=== PATIENT | female | born 1935 | race Caucasian/White ===

== ENCOUNTER 2022-07-20 06:44 | Outpatient (OUT) | payer MEDICARE, BC, SELFPAY ==
--- NOTE | 2022-07-20 | PCN_ITS ---
CARDIAC STRESS TEST Requesting Physician:? Procedure Date:? 07/20/2022 This was a Lexiscan stress test with myocardial perfusion images, performed at the [facility] on 07/20/2022. The patient was attached to electrographic monitoring.? Informed consent was obtained.? An intravenous line was secured.? Baseline vital signs and ECG were obtained.? Lexiscan 0.4 mg intravenously were infused, followed by administration of Cardiolite.? The patient then went on to obtain myocardial images.? Resting heart rate was 69 BPM.? Maximum heart rate was 95 BPM.? Resting blood pressure was 180/92.? Maximum blood pressure was 198/92.? Resting ECG showed evidence of normal sinus rhythm with frequent premature atrial complexes and occasional premature ventricular complexes.? There was evidence of incomplete right bundle branch block.? Following infusion of Lexiscan, there was evidence of sinus rhythm with occasional premature ventricular and atrial complexes.? There was no evidence of ischemic ST changes seen. IMPRESSION:? 1.? Negative Lexiscan stress test for evidence of ischemic ECG changes. 2.? Resting hypertension. 3.? Myocardial perfusion images will be reported separately. MTDD
--- NOTE | 2022-07-20 07:05 | NM_ITS ---
Patient: SAGE HSU Exam Date: 07/20/2022 : 1935 Gender:F Ordering : DR MIESHA GAVIN M.D. Admission #: [id number] Family : DR Shirlene Vergara M.D. Order #: [id number] CLICK HERE TO VIEW EXAM RADIOLOGY REPORT PROCEDURE: NM CANDIDA PERF SPECT REST STR COMPARISON: None. INDICATIONS: Shortness of breath TECHNIQUE: Exam Description: Stress/Rest one day protocol gated SPECT Rest Imagin.3 mCi Tc-99m Cardiolite IV on 07/20/2022 Stress Imaging 30.4 mCi Tc-99m Cardiolite IV on 07/20/2022 Exercise Protocol: 0.4 mg Lexiscan given IV Heart Rate (bpm): Rest: 69 Max: 95 PMHR: 70 Blood Pressure: Rest: 180/92 Max: 198/92 Symptoms: Rest and peak stress ECG findings were pending and the exercise portion of the study was pending per attending physician Dr. THOMPSON . For more details please see separate cardiac stress test report. FINDINGS: QUALITY OF STUDY: Excellent. PERFUSION DEFECT: None. LOCATION: N/A SIZE: N/A. SEVERITY: N/A. TYPE: N/A. WALL MOTION: Normal. LV SIZE: Normal. 80 mL. TID / TCD: None; 0.9 LVEF: Normal. Calculated EF 71%. SUMMARY: Myocardial perfusion imaging study is NORMAL. CONCLUSION: 1. Normal nuclear medicine myocardial perfusion scan. Dictated by: Lul Rodriguez M.D. on 07/21/2022 at 11:52 Approved by: Lul Rodriguez M.D. on 07/21/2022 at 11:53
[2022-07-20 07:17] LABS: Alanine Aminotransferase 20 U/L (14-59); Albumin Level 3.3 g/dL (3.4-5.0); Alkaline Phosphatase 23 U/L (46-116); Aspartate Amino Transferase 16 U/L (15-37); Bilirubin Direct 0.2 mg/dL (0.0-0.2); Bilirubin Total 0.6 mg/dL (0.2-1.0); Chol HDL Ratio 3.4; Cholesterol 203 mg/dL (<=200); Globulin 3.4 g/dL; HDL Cholesterol 60 mg/dL (40-60); Total Protein 6.7 g/dL (6.4-8.2); Triglycerides 122 mg/dL (<=150); VLDL CHOLESTEROL 24.4 mg/dL
[2022-07-20] MEDS: REGADENOSON 0.4 MG/5 ML SYRINGE IV (09:17)
== END 2022-07-20 06:45 ==
LOC: NM 06:45
PROVIDERS: PCP Family Medicine; Visit Provider Internal Medicine Interventional Cardiology
DX: R06.02 Shortness of breath (principal); E78.5 Hyperlipidemia, unspecified
CPT/HCPCS: 36415; 78452; 80061; 80076; 93017; A9500; J2785

== ENCOUNTER 2022-08-06 08:55 | Outpatient (OUT) | payer MEDICARE, BC, SELFPAY | END 2022-08-06 08:56 | disposition home or self-care (01) | LOC: WC 08:55 | PROVIDERS: PCP Family Medicine; Visit Provider Physician Assistant | DX: I87.311 Chronic venous hypertension (idiopathic) with ulcer of right lower extremity (principal); L97.811 Non-pressure chronic ulcer of other part of right lower leg limited to breakdown of skin; L60.0 Ingrowing nail; R60.0 Localized edema; I70.90 Unspecified atherosclerosis; I10 Essential (primary) hypertension; S81.819A Laceration without foreign body, unspecified lower leg, initial encounter; M81.0 Age-related osteoporosis without current pathological fracture; L98.9 Disorder of the skin and subcutaneous tissue, unspecified | CPT/HCPCS: A6213; G0463 ==

== ENCOUNTER 2022-08-31 10:53 | Outpatient (OUT) | payer MEDICARE, BC, SELFPAY | END 2022-08-31 10:54 | disposition home or self-care (01) | LOC: WC 10:53 | PROVIDERS: PCP Family Medicine; Visit Provider Physician Assistant | DX: I87.311 Chronic venous hypertension (idiopathic) with ulcer of right lower extremity (principal); L97.811 Non-pressure chronic ulcer of other part of right lower leg limited to breakdown of skin | CPT/HCPCS: G0463 ==

== ENCOUNTER 2022-09-22 13:17 | Outpatient (OUT) | payer MEDICARE, BC, SELFPAY | END 2022-09-22 13:18 | disposition home or self-care (01) | PROVIDERS: PCP Family Medicine; Visit Provider Family Medicine | DX: N30.00 Acute cystitis without hematuria (principal) | CPT/HCPCS: 87086; 87150; 87186 ==

== ENCOUNTER 2022-09-27 17:12 | Emergency (ER) | payer MEDICARE, BC, SELFPAY ==
[2022-09-27 17:18] VITALS: BP 200/104; PULSE 79; RESP 16; TEMP 38.1; O2SAT 94; BMI 20.5
--- NOTE | 2022-09-27 17:29 | ECG_ITS ---
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
--- NOTE | 2022-09-27 17:29 | XR_ITS ---
The [address] [address] Patient Name: SAGE HSU MRN: [id number] date: 1935 Sex: F Assigned Patient Location: ER Current Patient Location: ED.MAIN Accession/Order Number: [id number] Exam Date: 09/27/2022 17:59 Report Date: 09/27/2022 18:52 At the request of: ALVARO JEREZ Procedure: XR chest 1V EXAMINATION: XR chest 1V HISTORY: Cough COMPARISON: Portable chest 11/01/2021 TECHNIQUE: PA and lateral chest x-rays FINDINGS: The lung parenchyma is free of consolidation or infiltrate. No pneumothorax or pleural effusion. Patient is status post median sternotomy and CABG. The cardiac, mediastinal and hilar contours are normal. The visualized osseous structures exhibit no gross abnormality. XR/XR chest 1V IMPRESSION: No acute cardiopulmonary abnormality. Electronically authenticated by: GIANA HOLLY Date: 09/27/2022 18:52
--- NOTE | 2022-09-27 17:48 | ED_ITS ---
HPI - Altered Mental Status General Chief Complaint: Altered Mental Status Stated Complaint: UTI Complaint Time Seen by Provider: 09/27/22 17:23 Source: patient and family Mode of arrival: Wheelchair Limitations: altered mental status History of Present Illness HPI narrative: Daughter gave the history Patient is an elderly female who lives in the [facility] in Independent Living. She frequently gets UTIs. She had a UA done at her PCPs about 10 days ago and was started on Bactrim. She took it for 5 days and seemed to get better then she became confused - her typical symptoms when she gets UTI - and so her Urologist ordered urine culture. It came back showing E faecalis and 2 days ago the patient was started on Macrobid. Today the patient spiked a fever and remained confused, so the patient was brought to the ED for evaluation. Related Data Home Medications Medication Instructions Recorded Confirmed clopidogrel 75 mg tablet (Plavix) 75 mg PO DAILY 09/27/22 09/27/22 estradiol 0.25 mg/0.25 gram (0.1 1 packet transdermal DAILY 09/27/22 09/27/22 %) transdermal gel packet metoprolol succinate 50 mg 50 mg PO DAILY 09/27/22 09/27/22 tablet,extended release 24 hr nitrofurantoin macrocrystal 100 mg 100 mg PO BID 09/27/22 09/27/22 capsule (Macrodantin) pantoprazole 40 mg tablet,delayed 40 mg PO DAILY 09/27/22 09/27/22 release simvastatin 40 mg tablet 40 mg PO DAILY 09/27/22 09/27/22 spironolactone 25 mg tablet 25 mg PO DAILY 09/27/22 09/27/22 vedolizumab 300 mg intravenous 300 mg IV 09/27/22 solution (Entyvio) Previous Rx's Medication Instructions Recorded doxycycline hyclate 100 mg capsule 100 mg PO BID #14 caps 09/27/22 Allergies Allergy/AdvReac Type Severity Reaction Status Date / Time levofloxacin AdvReac Severe Drowsy Verified 09/27/22 17:28 Penicillins AdvReac Severe Verified 09/27/22 17:28 Antihistamines - Alkylamine AdvReac Intermediate Verified 09/27/22 17:28 phenergen Allergy Severe Agitated Uncoded 09/27/22 17:28 PFSH PFSH Social History Smoking status: Never smoker Exam Narrative Exam Narrative: Nurses notes and vital signs reviewed and patient is not hypoxic. Febrile = 100.6F General: Well-appearing and in no apparent distress. Skin: Warm, dry, no pallor noted. No rash. Head: Normocephalic, atraumatic. Neck: Supple, non-tender. No meningismus Eye: Pupils are equal, round and EOMI. No scleral icterus. Ears, Nose, Mouth, and Throat: Oral mucosa is moist Cardiovascular: Regular Rate and Rhythm without murmur, gallop or rub. Respiratory: No accessory muscle use or respiratory distress. Lungs are clear to auscultation, no wheezing, rales or rhonchi Back: No CVA tenderness Musculoskeletal: normal ROM, no calf or popliteal tenderness, no lower extremity edema/swelling GI: Abdomen is soft, non-distended. Normal bowel sounds. No tenderness to palpation. No rebound, guarding, or rigidity noted. Neurological: A&O x4. No cranial nerve dysfunction observed. No truncal ataxia. Moves all extremities. Sensation intact. Psychiatric: Cooperative and interactive. Normal mood and affect. Constitutional Vital Signs, click to edit/add: Last Vital Signs Temp 100.6 F H 09/27/22 17:18 Pulse 79 09/27/22 17:18 Resp 16 09/27/22 17:18 BP 200/104 H 09/27/22 17:18 Pulse Ox 94 L 09/27/22 17:18 O2 Del Method Room Air 09/27/22 17:18 Course Vital Signs Vital signs: Vital Signs Temperature 100.6 F H 09/27/22 17:18 Pulse Rate 79 09/27/22 17:18 Respiratory Rate 16 09/27/22 17:18 Blood Pressure 200/104 H 09/27/22 17:18 Pulse Oximetry 94 L 09/27/22 17:18 Oxygen Delivery Method Room Air 09/27/22 17:18 Temperature 100.6 F H 09/27/22 17:18 Pulse Rate 79 09/27/22 17:18 Respiratory Rate 16 09/27/22 17:18 Blood Pressure 200/104 H 09/27/22 17:18 Pulse Oximetry 94 L 09/27/22 17:18 Oxygen Delivery Method Room Air 09/27/22 17:18 MDM - Altered Mental Status MDM Narrative Medical decision making narrative: Patient was placed on quality assurance monitor and EKG obtained. Blood drawn and sent for evaluation, including lactate and blood cultures per sepsis protocol. chest x- ray obtained. Review of the micro report from the patient's urine shows susceptibility to tetracycline with JODY <1 so I ordered IV doxycycline 100mg to be given IV. She is allergic to Levaquin and had been taking Macrobid without improvement. Patient has decreased Na & Cl and increased BUN and Cr. She was given 1L NS IVF. She is only 57.6 kg. She was able to be discharged home. She got a prescription for doxycycline tabs that the daughter will lease picker in the morning - she already got her IV dose for tonight. She will finish the macrobid, which she is senior care through. The doxy is a 7 day prescription. I encouraged her to increase her food and fluid intake. She can see her PCP or her urologist for follow up. ED return if she worsens. Medical Records Attestation: I reviewed the patient's medical records. Medical records narrative: Run Date: 09/27/22 [facility] Page: 1 Run Date: [address] [place], [place] [id number] Clinical Laboratory Report Name: SAGE HSU Acct: [id number] Loc: LAB Age/Sex: 86/F : 1935 Status: DEP OUT Reg Dr: Shirlene Vergara M.D. Specimen: [id number] Collected: 09/22/22 Received: 09/22/22 Source: Urine CC Sp Descrip: Sub Dr: Shirlene Vergara M.D. Other Dr: MELINA BOYD Procedure Result Site Urine Culture Final ML Organism 1 Enterococcus faecalis [place] Count 10,000 - 20,000 CFU/ml E faecalis JODY RX --------- --- * Ampicillin <=2 S * Beta Lactamase NEG * Ciprofloxacin <=0.5 S * Gentamycin Synergy Screen S * Levofloxacin 0.5 S * Linezolid 1 S * Nitrofurantoin <=16 S * Penicillin-G 1 S * Quinupristin/Dalfopristin 4 R * Streptomycin Synergy Screen S * Tetracycline <=1 S * Vancomycin 1 [place] [address] CLIA# [id number] Colored Liquid Plastic Applier: Dr. Anthony Bonilla Patient: SAGE HSU Age/Sex: 86/F Acct [id number] Lab Data Attestation: I reviewed the patient's lab results. Labs: Lab Results 09/27/22 09/27/22 Range/Units 17:40 17:50 WBC 8.0 (4.0-11.0) 10^3/uL RBC 3.66 L (4.20-5.40) 10^6/uL Hgb 11.4 L (12.0-16.0) g/dL Hct 34.7 L (36.0-48.0) % MCV 94.8 (81.0-99.0) fL MCH 31.1 (26.7-34.0) pg MCHC 32.9 (29.9-35.2) g/dL RDW 15.0 (11.0-15.0) % Plt Count 291 (150-450) 10^3/uL MPV 9.7 (9.5-13.5) fL Neut % (Auto) 76.6 H (43.0-75.0) % Lymph % (Auto) 7.5 L (20.5-60.0) % [place] % (Auto) 15.0 H (1.7-12.0) % Eos % (Auto) 0.1 L (0.9-7.0) % Baso % (Auto) 0.5 (0.2-2.0) % Neut # (Auto) 6.1 (1.4-6.5) 10^3/uL Lymph # (Auto) 0.6 L (1.2-3.8) 10^3/uL [place] # (Auto) 1.2 H (0.3-0.8) 10^3/uL Eos # (Auto) 0.0 (0.0-0.7) 10^3/uL Baso # (Auto) 0.0 (0.0-0.1) 10^3/uL Abs Immat Gran (auto) 0.02 (0.00-0.03) 10^3/uL Imm/Tot Granulo (auto) 0.3 (0.0-0.5) % Sodium 127 L (136-145) mmol/L Potassium 3.9 (3.5-5.1) mmol/L Chloride 95 L (98-107) mmol/L Carbon Dioxide 26.0 (21.0-32.0) mmol/L Anion Gap 9.9 BUN 24.0 H (7.0-18.0) mg/dL Creatinine 1.25 H (0.55-1.02) mg/dL Est GFR ( Amer) 49 L (>=60) Est GFR (Non-Af Amer) 41 L (>=60) BUN/Creatinine Ratio 19.2 Glucose 117 H (74-106) mg/dL Lactate 1.3 (0.4-2.0) mmol/L Calcium 8.8 (8.5-10.1) mg/dL Magnesium 1.7 L (1.8-2.4) mg/dL Total Bilirubin 1.0 (0.2-1.0) mg/dL AST 19 (15-37) U/L ALT 26 (14-59) U/L Alkaline Phosphatase 27 L (46-116) U/L Total Protein 6.9 (6.4-8.2) g/dL Albumin 3.5 (3.4-5.0) g/dL Globulin 3.4 g/dL Albumin/Globulin Ratio 1.0 Urine Color Yellow (YELLOW) Urine Clarity Clear (CLEAR) Urine pH 5.5 (5.0-9.0) Ur Specific [place] 1.020 (1.005-1.025) Urine Protein Negative (NEG/TRACE) mg/dL Urine Glucose (UA) Negative (NEGATIVE) mg/dL Urine Ketones Negative (NEGATIVE) mg/dL Urine Occult Blood Negative (NEGATIVE) Urine Nitrite Negative (NEGATIVE) Urine Bilirubin Negative (NEGATIVE) Urine Urobilinogen 0.2 (0.2-1.0) EU/dL Ur Leukocyte Esterase Negative (NEGATIVE) Imaging Data Chest x-ray: My impression: NAD ECG Data Attestation: I personally reviewed and interpreted this ECG as follows: Interpretation: EKG interpretation: Emergency Department physician interpretation. Normal sinus rhythm at 72bpm. RBBB, LVH, LAD. Inverteed T waves V1-V2 and aVL. no ST segment elevation or depression. Discharge Plan Discharge Chief Complaint: Altered Mental Status Clinical Impression: Altered mental status, Urinary tract infection, Acute hyponatremia Patient Disposition: Home, Self-Care Time of Disposition Decision: 18:45 Prescriptions / Home Meds: New doxycycline hyclate 100 mg capsule 100 mg PO BID Qty: 14 0RF No Action nitrofurantoin macrocrystal [Macrodantin] 100 mg capsule 100 mg PO BID Rx Instructions: must administer with a meal/food metoprolol succinate 50 mg tablet extended release 24 hr 50 mg PO DAILY simvastatin 40 mg tablet 40 mg PO DAILY spironolactone 25 mg tablet 25 mg PO DAILY pantoprazole 40 mg tablet,delayed release (DR/EC) 40 mg PO DAILY clopidogrel [Plavix] 75 mg tablet 75 mg PO DAILY estradiol 0.25 mg/0.25 gram (0.1 %) gel in packet 1 packet transdermal DAILY Entyvio 300 mg recon soln 300 mg IV Instructions: Hyponatremia (ED), Altered Mental Status (ED), Urinary Tract Infection in Older Adults (ED) Stand Alone Forms: Portal Instructions Referrals: Shirlene Vergara MD [Primary Care Provider] - 1 week
--- NOTE | 2022-09-27 17:48 | PC.NURSE ---
pt is AxOx4 at this time but is acting more weak and lethargic, per daughter. has been placed on 2 rounds of ATBs in last 10 days but sx are not improving.
[2022-09-27 17:58] LABS: Basophils Percent Auto 0.5 % (0.2-2.0); Eosinophils Percent Auto 0.1 % (0.9-7.0); Hematocrit 34.7 % (36.0-48.0); Hemoglobin 11.4 g/dL (12.0-16.0); Immature Granulocytes Abs Auto 0.02 10^3/uL (0.00-0.03); Immature Granulocytes Pct Auto 0.3 % (0.0-0.5); Lymphocytes Absolute Auto 0.6 10^3/uL (1.2-3.8); Lymphocytes Percent Auto 7.5 % (20.5-60.0); Mean Corpuscular HGB Conc 32.9 g/dL (29.9-35.2); Mean Corpuscular Hemoglobin 31.1 pg (26.7-34.0); Mean Corpuscular Volume 94.8 fL (81.0-99.0); Mean Platelet Volume 9.7 fL (9.5-13.5); Monocytes Absolute Auto 1.2 10^3/uL (0.3-0.8); Neutrophils Absolute Auto 6.1 10^3/uL (1.4-6.5); Neutrophils Percent Auto 76.6 % (43.0-75.0); Platelet Count 291 10^3/uL (150-450); Red Blood Count 3.66 10^6/uL (4.20-5.40)
[2022-09-27 17:58] LABS: Bilirubin Urine NEGATIVE (NEGATIVE); Blood Urine NEGATIVE (NEGATIVE); Clarity Urine CLEAR (CLEAR); Color Urine YELLOW (YELLOW); Glucose Urine UA NEGATIVE (NEGATIVE); Ketones Urine NEGATIVE (NEGATIVE); Leukocyte Esterase Urine NEGATIVE (NEGATIVE); Nitrite Urine NEGATIVE (NEGATIVE); Protein Urine NEGATIVE (NEG/TRACE); Urobilinogen Urine 0.2 EU/dL (0.2-1.0); pH Urine 5.5 (5.0-9.0)
[2022-09-27 18:02] LABS: Urine Microscopic Indicated NO
[2022-09-27] MEDS: ACETAMINOPHEN 500 MG TABLET 1000 MG PO (18:02)
[2022-09-27] MEDS: 0.9 % SODIUM CHLORIDE 1,000 ML 999 ML IV (18:02)
[2022-09-27] MEDS: DOXYCYCLINE HYCLATE 100 MG in 0.9 % SODIUM CHLORIDE 100 ML IV (18:10)
[2022-09-27 18:13] LABS: Alanine Aminotransferase 26 U/L (14-59); Albumin Level 3.5 g/dL (3.4-5.0); Alkaline Phosphatase 27 U/L (46-116); Anion Gap 9.9; Aspartate Amino Transferase 19 U/L (15-37); BUN Creatinine Ratio 19.2; Calcium 8.8 mg/dL (8.5-10.1); Chloride 95 mmol/L (98-107); Estimated GFR (African America 49 (>=60); Estimated GFR (Non-African Ame 41 (>=60); Globulin 3.4 g/dL; Glucose 117 mg/dL (74-106); Magnesium 1.7 mg/dL (1.8-2.4); Potassium 3.9 mmol/L (3.5-5.1); Sodium 127 mmol/L (136-145); Total Protein 6.9 g/dL (6.4-8.2)
[2022-09-27 18:18] LABS: Lactate/Lactic Acid 1.3 mmol/L (0.4-2.0)
[2022-09-27 19:29] VITALS: BP 180/92; PULSE 62; RESP 18; TEMP 37.2; O2SAT 94
== END 2022-09-27 19:39 | disposition home or self-care (01) ==
PROVIDERS: Emergency Provider Emergency Medicine; PCP Family Medicine
DX: N39.0 Urinary tract infection, site not specified (principal); R41.82 Altered mental status, unspecified; E87.1 Hypo-osmolality and hyponatremia; Z87.440 Personal history of urinary (tract) infections; Z79.899 Other long term (current) drug therapy; Z79.02 Long term (current) use of antithrombotics/antiplatelets; R50.9 Fever, unspecified
CPT/HCPCS: 36415; 71045; 80053; 81003; 83605; 83735; 85025; 87040; 93005; 96374; 99285

== ENCOUNTER 2022-11-12 15:06 | Outpatient (OUT) | payer MEDICARE, BC, SELFPAY | END 2022-11-12 15:07 | disposition home or self-care (01) | LOC: WC 15:06 | PROVIDERS: PCP Family Medicine; Visit Provider Physician Assistant | DX: I87.2 Venous insufficiency (chronic) (peripheral) (principal); L60.3 Nail dystrophy; L98.9 Disorder of the skin and subcutaneous tissue, unspecified; R60.0 Localized edema; I10 Essential (primary) hypertension; M81.0 Age-related osteoporosis without current pathological fracture; I87.311 Chronic venous hypertension (idiopathic) with ulcer of right lower extremity; L97.811 Non-pressure chronic ulcer of other part of right lower leg limited to breakdown of skin | CPT/HCPCS: 11721 ==

== ENCOUNTER 2022-12-01 11:45 | Outpatient (OUT) | payer MEDICARE, BC, SELFPAY | END 2022-12-01 11:46 | disposition home or self-care (01) | LOC: LAB 11:50 | PROVIDERS: PCP Family Medicine; Visit Provider Physician Assistant | DX: N39.0 Urinary tract infection, site not specified (principal) | CPT/HCPCS: 87086; 87150; 87186 ==

== ENCOUNTER 2022-12-05 20:13 | Emergency (ER) | payer MEDICARE, BC, SELFPAY ==
[2022-12-05 20:17] VITALS: BP 197/80; PULSE 61; RESP 17; TEMP 36.8; O2SAT 100; BMI 18.7
--- NOTE | 2022-12-05 20:22 | XR_ITS ---
The [address] [address] Patient Name: SAGE HSU MRN: [id number] date: 1935 Sex: F Assigned Patient Location: ER Current Patient Location: ER Accession/Order Number: [id number] Exam Date: 12/05/2022 20:45 Report Date: 12/05/2022 21:41 At the request of: HAI JONES Procedure: XR shoulder RT min 2V EXAM: XR shoulder RT min 2V HISTORY: right shoulder pain COMPARISON: None. TECHNIQUE: 3 views right shoulder FINDINGS: No acute fracture or aggressive osseous abnormality. Mild degenerative change of the glenohumeral and acromioclavicular joints. Amorphous calcification of the supraspinatus tendon likely hydroxyapatite deposition disease. Imaged right lung is clear. Chronic right sixth rib fracture. XR/XR shoulder RT min 2V IMPRESSION: Degenerative changes of the right shoulder. 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 Electronically authenticated by: JARETH BENNETT Date: 12/05/2022 21:41
--- NOTE | 2022-12-05 20:28 | ED.UPPEXIN1 ---
HPI - Extremity Injury (Upper) General Chief Complaint: Extremity Injury, Upper Stated Complaint: RT ARM PAIN Time Seen by Provider: 12/05/22 20:22 Source: patient Mode of arrival: walk-in Limitations: no limitations History of Present Illness HPI narrative: patient is an 87-year-old female presents the emergency department for the evaluation of right shoulder pain. She states she has been having pain in the right arm, proximal humerus for the last two weeks. She states today she was reaching above her head when she felt a sharp pain and pull in the right shoulder. She reports significant pain with abduction and at this time. She is right-hand dominant. No medications taken prior to arrival, she took Tylenol earlier today. She denies numbness or tingling. No falls or direct injuries. She denies any neck or posterior shoulder pain Related Data Home Medications Medication Instructions Recorded Confirmed clopidogrel 75 mg tablet (Plavix) 75 mg PO DAILY 09/27/22 09/27/22 estradiol 0.25 mg/0.25 gram (0.1 1 packet transdermal DAILY 09/27/22 09/27/22 %) transdermal gel packet metoprolol succinate 50 mg 50 mg PO DAILY 09/27/22 09/27/22 tablet,extended release 24 hr nitrofurantoin macrocrystal 100 mg 100 mg PO BID 09/27/22 09/27/22 capsule (Macrodantin) pantoprazole 40 mg tablet,delayed 40 mg PO DAILY 09/27/22 09/27/22 release simvastatin 40 mg tablet 40 mg PO DAILY 09/27/22 09/27/22 spironolactone 25 mg tablet 25 mg PO DAILY 09/27/22 09/27/22 vedolizumab 300 mg intravenous 300 mg IV 09/27/22 solution (Entyvio) Previous Rx's Medication Instructions Recorded doxycycline hyclate 100 mg capsule 100 mg PO BID #14 caps 09/27/22 hydrocodone 5 mg-acetaminophen 325 1 tab PO Q6H PRN pain #12 tabs 12/05/22 mg tablet ondansetron 4 mg disintegrating 4 mg PO Q6H PRN nausea and 12/05/22 tablet vomiting #12 tabs prednisone 20 mg tablet See Rx Instructions .Route 12/05/22 .COMPLEX #6 tabs Allergies Allergy/AdvReac Type Severity Reaction Status Date / Time levofloxacin AdvReac Severe Drowsy Verified 09/27/22 17:28 Penicillins AdvReac Severe Verified 09/27/22 17:28 Antihistamines - Alkylamine AdvReac Intermediate Verified 09/27/22 17:28 phenergen Allergy Severe Agitated Uncoded 09/27/22 17:28 Review of Systems ROS Constitutional Denies: fever or chills Ears, nose, mouth, and throat Denies: throat pain or neck pain Respiratory Denies: shortness of breath or cough Gastrointestinal Denies: nausea or vomiting Genitourinary Denies: painful urination Musculoskeletal Reports: extremity pain, joint pain and limited range of motion; Denies: back pain or neck pain Integumentary/Breast Denies: rash Neurological Denies: headache Hematologic/Lymphatic Denies: easy bruising PFSH PFSH Social History Smoking status: Former smoker Exam Narrative Exam Narrative: Gen.: Awake, alert, in no distress Head: Normocephalic, atraumatic ENT: Moist mucous membranes, C-spine nontender Respiratory: No respiratory distress Extremities: limited abduction at the right shoulder, no bony tenderness of the right elbow, right forearm or right hand. 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 No palpable deformity of the right upper extremity. Tenderness to palpation of the right proximal humerus at the glenohumeral joint. Psych: Normal mood and affect Neuro: No focal neuro deficit Skin: Warm, dry, intact Constitutional Vital Signs, click to edit/add: Last Vital Signs Temp 98.3 F 12/05/22 20:17 Pulse 88 12/05/22 22:08 Resp 17 12/05/22 20:17 BP 164/78 H 12/05/22 22:08 Pulse Ox 100 12/05/22 20:17 O2 Del Method Room Air 12/05/22 20:17 Course Vital Signs Vital signs: Vital Signs Temperature 98.3 F 12/05/22 20:17 Pulse Rate 61 12/05/22 20:17 Respiratory Rate 17 12/05/22 20:17 Blood Pressure 197/80 H 12/05/22 20:17 Pulse Oximetry 100 12/05/22 20:17 Oxygen Delivery Method Room Air 12/05/22 20:17 Temperature 98.3 F 12/05/22 20:17 Pulse Rate 88 12/05/22 22:08 Respiratory Rate 17 12/05/22 20:17 Blood Pressure 164/78 H 12/05/22 22:08 Pulse Oximetry 100 12/05/22 20:17 Oxygen Delivery Method Room Air 12/05/22 20:17 MDM - Extremity Injury (Upper) MDM Narrative Medical decision making narrative: x-rays of the right shoulder reviewed by the radiologist showing no evidence of acute fracture or dislocation. Patient does have calcium deposition in the rotator cuff. She was treated with [place] in the Emergency Room, she tolerated this medication well. She will be given a short course of steroids, 1st dose in the Emergency Room. She is placed in a sling and remains neurovascularly intact. Rest, ice, gentle stretching. Sling for 3-5 days only. Follow up with orthopedics, they see Dr. Licea. Return to the Emergency Room if symptoms change or worsen. Medical Records Attestation: I reviewed the patient's medical records. Imaging Data XR shoulder: Attestation: I have reviewed the pertinent imaging results. Radiologist's impression: Procedure: XR shoulder RT min 2V EXAM: XR shoulder RT min 2V HISTORY: right shoulder pain COMPARISON: None. TECHNIQUE: 3 views right shoulder FINDINGS: No acute fracture or aggressive osseous abnormality. Mild degenerative change of the glenohumeral and acromioclavicular joints. Amorphous calcification of the supraspinatus tendon likely hydroxyapatite deposition disease. Imaged right lung is clear. Chronic right sixth rib fracture. IMPRESSION: Degenerative changes of the right shoulder. 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 Electronically authenticated by: JARETH BENNETT Date: 12/05/2022 21:41 Discharge Plan Discharge Chief Complaint: Extremity Injury, Upper Clinical Impression: Acute pain of right shoulder Patient Disposition: Home, Self-Care Time of Disposition Decision: 21:54 Condition: Good Prescriptions / Home Meds: New hydrocodone-acetaminophen 5-325 mg tablet 1 tab PO Q6H PRN (Reason: pain) Qty: 12 0RF Rx Instructions: DX M25.511 prednisone 20 mg tablet See Rx Instructions .ROUTE .COMPLEX Qty: 6 0RF Rx Instructions: 2 tabs daily for 2 days, then 1 tab daily for 2 days ondansetron 4 mg tablet,disintegrating 4 mg PO Q6H PRN (Reason: nausea and vomiting) Qty: 12 0RF No Action nitrofurantoin macrocrystal [Macrodantin] 100 mg capsule 100 mg PO BID Rx Instructions: must administer with a meal/food metoprolol succinate 50 mg tablet extended release 24 hr 50 mg PO DAILY simvastatin 40 mg tablet 40 mg PO DAILY spironolactone 25 mg tablet 25 mg PO DAILY pantoprazole 40 mg tablet,delayed release (DR/EC) 40 mg PO DAILY clopidogrel [Plavix] 75 mg tablet 75 mg PO DAILY estradiol 0.25 mg/0.25 gram (0.1 %) gel in packet 1 packet transdermal DAILY Entyvio 300 mg recon soln 300 mg IV doxycycline hyclate 100 mg capsule 100 mg PO BID Qty: 14 0RF Instructions: Shoulder Pain (ED) Additional Instructions: Follow up with tian Bustamante for 3-5 days only; take off sling to rest and shower Stand Alone Forms: Portal Instructions Referrals: Shirlene Vergara MD [Primary Care Provider] - 1 week Discharge Date/Time: 12/05/22 22:17
[2022-12-05] MEDS: HYDROCODONE/ACET 5-325 MG TABLET 1 TAB PO ×2 (21:00→22:04)
[2022-12-05 21:05] VITALS: BP 197/81
[2022-12-05] MEDS: PREDNISONE 20 MG TABLET 60 MG PO (22:04)
[2022-12-05 22:08] VITALS: BP 164/78; PULSE 88
== END 2022-12-05 22:17 | disposition home or self-care (01) ==
PROVIDERS: Emergency Provider Internal Medicine; PCP Family Medicine
DX: M25.511 Pain in right shoulder (principal); Z79.02 Long term (current) use of antithrombotics/antiplatelets; Z79.899 Other long term (current) drug therapy; Z87.891 Personal history of nicotine dependence
CPT/HCPCS: 73030; 99283

== ENCOUNTER 2022-12-29 10:35 | Inpatient (IN) | payer MEDICARE, BC, SELFPAY ==
[2022-12-29] VITALS (10 sets, daily range): BP systolic 156–190; BP diastolic 64–98; PULSE 57–90; RESP 16–20; TEMP 36.2–36.4; O2SAT 95–100; BMI 17.6; BMI 18.0
--- NOTE | 2022-12-29 11:07 | CT_ITS ---
The [address] [address] Patient Name: SAGE HSU MRN: [id number] date: 1935 Sex: F Assigned Patient Location: ER Current Patient Location: ER Accession/Order Number: [id number] Exam Date: 12/29/2022 12:40 Report Date: 12/29/2022 13:14 At the request of: ALVARO JEREZ Procedure: CT abdomen pelvis w con EXAM: CT abdomen pelvis w con HISTORY: diarrhea COMPARISON: CT abdomen and pelvis 05/27/2022. TECHNIQUE: Following the intravenous administration of 85 cc of Omnipaque 300, axial soft tissue windows of the abdomen and pelvis were performed with coronal and sagittal reformats. CT dose reduction technique was used including Automated Exposure Control. FINDINGS: Minimal bilateral lower lobe atelectasis. ABDOMEN: The liver, spleen, and adrenal glands are unremarkable. The gallbladder is surgically absent. There is biliary ductal dilatation which may relate to the status post cholecystectomy state. However, there are small stones within the distal common bile duct. The largest measures 0.4 cm. Bilateral renal cysts and low-attenuation lesions, too small to characterize. The largest is an exophytic lesion off the lower pole of the left kidney measuring 8.5 cm. No renal stones or collecting system dilatation. The visualized portions of the bilateral ureters are nondilated. The bowel is unremarkable without evidence of wall thickening or obstruction. The appendix is nondilated. The aorta is normal caliber. Moderate atherosclerotic disease. No enlarged abdominal lymph nodes or free abdominal fluid. Pelvis: Evaluation is limited due to streak artifact generated by the left hip arthroplasty. There is gas within the bladder lumen. No calculi. The uterus is surgically absent. No enlarged pelvic lymph nodes or free pelvic fluid. No aggressive sclerotic or lytic osseous lesions. Mild multilevel degenerative lumbar spondylosis. Moderate right hip osteoarthritis. CT/CT abdomen pelvis w con IMPRESSION: 1. Choledocholithiasis. 2. Bilateral renal cysts. 3. Gas within the bladder lumen may relate to recent instrumentation. In a setting lacking this history, infection can have a similar appearance. Electronically authenticated by: MI NUÑEZ Date: 12/29/2022 13:14
--- NOTE | 2022-12-29 11:09 | ED.NAVMDI1 ---
HPI - Nausea/Vomiting/Diarrhea General Chief complaint: Nausea/Vomiting/Diarrhea Stated complaint: DIRRHEA Time Seen by Provider: 12/29/22 10:37 Source: patient Mode of arrival: walk-in Limitations: no limitations History of Present Illness HPI Narrative: 10 days of watery diarrhea that was initially associated with 2 days of dry heaves . Appetite has been down since then. No blood in stool. Daughter concerned about possible UTI as well. 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 Related Data Home Medications Medication Instructions Recorded Confirmed clopidogrel 75 mg tablet (Plavix) 75 mg PO DAILY 09/27/22 09/27/22 estradiol 0.25 mg/0.25 gram (0.1 1 packet transdermal DAILY 09/27/22 09/27/22 %) transdermal gel packet metoprolol succinate 50 mg 50 mg PO DAILY 09/27/22 09/27/22 tablet,extended release 24 hr nitrofurantoin macrocrystal 100 mg 100 mg PO BID 09/27/22 09/27/22 capsule (Macrodantin) pantoprazole 40 mg tablet,delayed 40 mg PO DAILY 09/27/22 09/27/22 release simvastatin 40 mg tablet 40 mg PO DAILY 09/27/22 09/27/22 spironolactone 25 mg tablet 25 mg PO DAILY 09/27/22 09/27/22 vedolizumab 300 mg intravenous 300 mg IV 09/27/22 solution (Entyvio) Previous Rx's Medication Instructions Recorded doxycycline hyclate 100 mg capsule 100 mg PO BID #14 caps 09/27/22 hydrocodone 5 mg-acetaminophen 325 1 tab PO Q6H PRN pain #12 tabs 12/05/22 mg tablet ondansetron 4 mg disintegrating 4 mg PO Q6H PRN nausea and 12/05/22 tablet vomiting #12 tabs prednisone 20 mg tablet See Rx Instructions .Route 12/05/22 .COMPLEX #6 tabs Allergies Allergy/AdvReac Type Severity Reaction Status Date / Time levofloxacin AdvReac Severe Drowsy Verified 09/27/22 17:28 Penicillins AdvReac Severe Verified 09/27/22 17:28 Antihistamines - Alkylamine AdvReac Intermediate Verified 09/27/22 17:28 phenergen Allergy Severe Agitated Uncoded 09/27/22 17:28 PFSH PFSH Social History Smoking status: Never smoker Exam Constitutional Vital Signs, click to edit/add: Last Vital Signs Temp 97.4 F L 12/29/22 10:40 Pulse 60 12/29/22 10:40 Resp 16 12/29/22 10:40 BP 157/98 H 12/29/22 10:40 Pulse Ox 100 12/29/22 10:40 O2 Del Method Room Air 12/29/22 10:40 Course Vital Signs Vital signs: Vital Signs Temperature 97.4 F L 12/29/22 10:40 Pulse Rate 60 12/29/22 10:40 Respiratory Rate 16 12/29/22 10:40 Blood Pressure 157/98 H 12/29/22 10:40 Pulse Oximetry 100 12/29/22 10:40 Oxygen Delivery Method Room Air 12/29/22 10:40 Temperature 97.4 F L 12/29/22 10:40 Pulse Rate 60 12/29/22 10:40 Respiratory Rate 16 12/29/22 10:40 Blood Pressure 157/98 H 12/29/22 10:40 Pulse Oximetry 100 12/29/22 10:40 Oxygen Delivery Method Room Air 12/29/22 10:40 MDM - Nausea/Vomiting/Diarrhea MDM Narrative Medical decision making narrative: peripheral IV established and blood drawn and sent for testing. The patient was also ordered to have stool sent for testing and urine sent for testing. She was ordered to undergo CT scan of the abdomen pelvis with both oral and IV contrast, which was obtained once we reassured the patient's renal function was adequate to receive IV contrast. Since she had experienced 10+ days of diarrhea she was given a liter of normal saline IV fluid. WBC normal and LFTs negative. Her BUN and Cr were increased from her baseline values. She was found to have low potassium at 2.2 and was given oral potassium 40meq. She was also ordered to receive IV potassium 40meq in a liter of normal saline over five hours. The CT scan did not show any worrisome findings. She does have some gallbladder stones with no sign of cholecystitis. No abscess or worrisome findings throughout the colon.T Her gastrointestinal panel revealed both Chauncey virus and C. difficile - she was started on oral Flagyl in the emergency department. Call placed to Dr Garrido to discuss admission for treatment of her dehydration and electrolyte abnormality as well as continue to monitor her CDiff infection. Dr Garrido agreed to admit the patient to [facility] with telemetry, OBS basis. Patient and family informed of results and are agreeable to admission. Lab Data Attestation: I reviewed the patient's lab results. Labs: Lab Results 12/29/22 12/29/22 12/29/22 Range/Units 11:15 11:18 11:20 WBC 7.4 (4.0-11.0) 10^3/uL RBC 4.05 L (4.20-5.40) 10^6/uL Hgb 12.8 (12.0-16.0) g/dL Hct 38.1 (36.0-48.0) % MCV 94.1 (81.0-99.0) fL MCH 31.6 (26.7-34.0) pg MCHC 33.6 (29.9-35.2) g/dL RDW 14.5 (11.0-15.0) % Plt Count 384 (150-450) 10^3/uL MPV 9.4 L (9.5-13.5) fL Neut % (Auto) 72.9 (43.0-75.0) % Lymph % (Auto) 17.0 L (20.5-60.0) % [place] % (Auto) 9.3 (1.7-12.0) % Eos % (Auto) 0.1 L (0.9-7.0) % Baso % (Auto) 0.4 (0.2-2.0) % Neut # (Auto) 5.4 (1.4-6.5) 10^3/uL Lymph # (Auto) 1.3 (1.2-3.8) 10^3/uL [place] # (Auto) 0.7 (0.3-0.8) 10^3/uL Eos # (Auto) 0.0 (0.0-0.7) 10^3/uL Baso # (Auto) 0.0 (0.0-0.1) 10^3/uL Abs Immat Gran (auto) 0.02 (0.00-0.03) 10^3/uL Imm/Tot Granulo (auto) 0.3 (0.0-0.5) % Sodium 141 (136-145) mmol/L Potassium 2.2 L* (3.5-5.1) mmol/L Chloride 105 (98-107) mmol/L Carbon Dioxide 23.1 (21.0-32.0) mmol/L Anion Gap 15.1 BUN 32.0 H (7.0-18.0) mg/dL Creatinine 1.45 H (0.55-1.02) mg/dL Est GFR ( Amer) 41 L (>=60) Est GFR (Non-Af Amer) 34 L (>=60) BUN/Creatinine Ratio 22.1 Glucose 101 (74-106) mg/dL Calcium 9.1 (8.5-10.1) mg/dL Total Bilirubin 0.7 (0.2-1.0) mg/dL AST 26 (15-37) U/L ALT 30 (14-59) U/L Alkaline Phosphatase 26 L (46-116) U/L Total Protein 7.4 (6.4-8.2) g/dL Albumin 3.6 (3.4-5.0) g/dL Globulin 3.8 g/dL Albumin/Globulin Ratio 0.9 Stl C. cayetanensis PCR Not detected (NOT DETECTE) Stool Rotavirus (PCR) Not detected (NOT DETECTE) Stool Adenovirus (PCR) Not detected (NOT DETECTE) Stool Astrovirus (PCR) Detected A (NOT DETECTE) Stool Campylobacter PCR Not detected (NOT DETECTE) Stool Cryptosporidium PCR Not detected (NOT DETECTE) St Sh/Enteroin Ecoli PCR Not detected (NOT DETECTE) Stl Enterotoxigenic E PCR Not detected (NOT DETECTE) Stool EPEC (PCR) Not detected (NOT DETECTE) Stl E. histolytica PCR Not detected (NOT DETECTE) Stool Giardia Lamblia PCR Not detected (NOT DETECTE) Stl P. shigelloides PCR Not detected (NOT DETECTE) Stool Salmonella PCR Not detected (NOT DETECTE) Stool Sapovirus (PCR) Not detected (NOT DETECTE) Stl Shiga-like Tx 1 PCR Not detected (NOT DETECTE) St Y.enterocolitica PCR Not detected (NOT DETECTE) Stl Vibrio cholerae PCR Not detected (NOT DETECTE) Stl Enteroaggr Ecoli PCR Not detected (NOT DETECTE) Stl Norovirus GI/GII PCR Not detected (NOT DETECTE) C. difficile Toxin A&B Detected A* (NOT DETECTE) SARS-CoV-2 (PCR) Negative (NEGATIVE) Vibrio Culture Not detected (NOT DETECTE) Imaging Data CT scan - abdomen: Radiologist's impression: Patient Name: SAGE HSU MRN: [id number] date: 1935 Sex: F Assigned Patient Location: ER Current Patient Location: ER Accession/Order Number: [id number] Exam Date: 12/29/2022 12:40 Report Date: 12/29/2022 13:14 At the request of: ALVARO JEREZ Procedure: CT abdomen pelvis w con EXAM: CT abdomen pelvis w con HISTORY: diarrhea COMPARISON: CT abdomen and pelvis 05/27/2022. TECHNIQUE: Following the intravenous administration of 85 cc of Omnipaque 300, axial soft tissue windows of the abdomen and pelvis were performed with coronal and sagittal reformats. CT dose reduction technique was used including Automated Exposure Control. FINDINGS: Minimal bilateral lower lobe atelectasis. ABDOMEN: The liver, spleen, and adrenal glands are unremarkable. The gallbladder is surgically absent. There is biliary ductal dilatation which may relate to the status post cholecystectomy state. However, there are small stones within the distal common bile duct. The largest measures 0.4 cm. Bilateral renal cysts and low-attenuation lesions, too small to characterize. The largest is an exophytic lesion off the lower pole of the left kidney measuring 8.5 cm. No renal stones or collecting system dilatation. The visualized portions of the bilateral ureters are nondilated. The bowel is unremarkable without evidence of wall thickening or obstruction. The appendix is nondilated. The aorta is normal caliber. Moderate atherosclerotic disease. No enlarged abdominal lymph nodes or free abdominal fluid. Pelvis: Evaluation is limited due to streak artifact generated by the left hip arthroplasty. There is gas within the bladder lumen. No calculi. The uterus is surgically absent. No enlarged pelvic lymph nodes or free pelvic fluid. No aggressive sclerotic or lytic osseous lesions. Mild multilevel degenerative lumbar spondylosis. Moderate right hip osteoarthritis. IMPRESSION: 1. Choledocholithiasis. 2. Bilateral renal cysts. 3. Gas within the bladder lumen may relate to recent instrumentation. In a setting lacking this history, infection can have a similar appearance. Electronically authenticated by: MI NUÑEZ Date: 12/29/2022 13:14 ECG Data Attestation: ?I have reviewed the pertinent ECG results. Interpretation: EKG interpretation: Emergency Department physician interpretation. Normal sinus rhythm at 60bpm. First-degree AV block, right on a branch block, left ventricular hypertrophy, left axis deviation. Discharge Plan Discharge Chief Complaint: Nausea/Vomiting/Diarrhea Clinical Impression: Acute dehydration, Clostridium difficile colitis, Acute hypokalemia Patient Disposition: Admitted as Observation Time of Disposition Decision: 13:35 Prescriptions / Home Meds: No Action hydrocodone-acetaminophen 5-325 mg tablet 1 tab PO Q6H PRN (Reason: pain) Qty: 12 0RF Rx Instructions: DX M25.511 prednisone 20 mg tablet See Rx Instructions .ROUTE .COMPLEX Qty: 6 0RF Rx Instructions: 2 tabs daily for 2 days, then 1 tab daily for 2 days ondansetron 4 mg tablet,disintegrating 4 mg PO Q6H PRN (Reason: nausea and vomiting) Qty: 12 0RF nitrofurantoin macrocrystal [Macrodantin] 100 mg capsule 100 mg PO BID Rx Instructions: must administer with a meal/food metoprolol succinate 50 mg tablet extended release 24 hr 50 mg PO DAILY simvastatin 40 mg tablet 40 mg PO DAILY spironolactone 25 mg tablet 25 mg PO DAILY pantoprazole 40 mg tablet,delayed release (DR/EC) 40 mg PO DAILY clopidogrel [Plavix] 75 mg tablet 75 mg PO DAILY estradiol 0.25 mg/0.25 gram (0.1 %) gel in packet 1 packet transdermal DAILY Entyvio 300 mg recon soln 300 mg IV doxycycline hyclate 100 mg capsule 100 mg PO BID Qty: 14 0RF Additional Instructions: dr garrido, obs, medsurg w telemetry Referrals: Shirlene Vergara MD [Primary Care Provider] - 1 week
[2022-12-29] MEDS: 0.9 % SODIUM CHLORIDE 1,000 ML 999 ML IV (11:28)
[2022-12-29 11:39] LABS: Adenovirus F 40/41 NOT DETECTED (NOT DETECTE); Campylobacter NOT DETECTED (NOT DETECTE); Cryptosporidium NOT DETECTED (NOT DETECTE); Cyclospora cayetanensis NOT DETECTED (NOT DETECTE); Entamoeba histolytica NOT DETECTED (NOT DETECTE); Enteroaggregative E.coli NOT DETECTED (NOT DETECTE); Enteropathogenic E.coli NOT DETECTED (NOT DETECTE); Enterotoxigenic E. coli NOT DETECTED (NOT DETECTE); Giardia lamblia NOT DETECTED (NOT DETECTE); Norovirus GI/GII NOT DETECTED (NOT DETECTE); Plesiomonas shigelloides NOT DETECTED (NOT DETECTE); Rotavirus A NOT DETECTED (NOT DETECTE); Salmonella NOT DETECTED (NOT DETECTE); Sapovirus NOT DETECTED (NOT DETECTE); Shiga-like toxin-producing E.C NOT DETECTED (NOT DETECTE); Shigella/Enteroinvasive E.coli NOT DETECTED (NOT DETECTE); Vibrio NOT DETECTED (NOT DETECTE); Vibrio cholerae NOT DETECTED (NOT DETECTE); Yersinia enterocolitica NOT DETECTED (NOT DETECTE)
[2022-12-29 11:43] LABS: Basophils Percent Auto 0.4 % (0.2-2.0); Eosinophils Percent Auto 0.1 % (0.9-7.0); Hematocrit 38.1 % (36.0-48.0); Hemoglobin 12.8 g/dL (12.0-16.0); Immature Granulocytes Abs Auto 0.02 10^3/uL (0.00-0.03); Immature Granulocytes Pct Auto 0.3 % (0.0-0.5); Lymphocytes Absolute Auto 1.3 10^3/uL (1.2-3.8); Mean Corpuscular HGB Conc 33.6 g/dL (29.9-35.2); Mean Corpuscular Hemoglobin 31.6 pg (26.7-34.0); Mean Corpuscular Volume 94.1 fL (81.0-99.0); Mean Platelet Volume 9.4 fL (9.5-13.5); Monocytes Absolute Auto 0.7 10^3/uL (0.3-0.8); Monocytes Percent Auto 9.3 % (1.7-12.0); Neutrophils Absolute Auto 5.4 10^3/uL (1.4-6.5); Neutrophils Percent Auto 72.9 % (43.0-75.0); Platelet Count 384 10^3/uL (150-450); Red Blood Count 4.05 10^6/uL (4.20-5.40); Red Cell Distribution Width 14.5 % (11.0-15.0); White Blood Count 7.4 10^3/uL (4.0-11.0)
[2022-12-29 11:56] LABS: SARS-CoV-2 Ag NEGATIVE (NEGATIVE)
[2022-12-29 12:17] LABS: Sodium 141 mmol/L (136-145)
[2022-12-29 12:19] LABS: Anion Gap 15.1; Carbon Dioxide 23.1 mmol/L (21.0-32.0); Chloride 105 mmol/L (98-107); Potassium 2.2 mmol/L (3.5-5.1)
[2022-12-29 12:20] LABS: BUN Creatinine Ratio 22.1; Calcium 9.1 mg/dL (8.5-10.1); Estimated GFR (African America 41 (>=60); Estimated GFR (Non-African Ame 34 (>=60); Glucose 101 mg/dL (74-106)
[2022-12-29 12:21] LABS: Alanine Aminotransferase 30 U/L (14-59); Alkaline Phosphatase 26 U/L (46-116); Aspartate Amino Transferase 26 U/L (15-37); Bilirubin Total 0.7 mg/dL (0.2-1.0)
[2022-12-29 12:22] LABS: Albumin Globulin Ratio 0.9; Albumin Level 3.6 g/dL (3.4-5.0); Globulin 3.8 g/dL; Total Protein 7.4 g/dL (6.4-8.2)
[2022-12-29 13:12] LABS: Astrovirus DETECTED (NOT DETECTE)
[2022-12-29] MEDS: POTASSIUM CHLORIDE 10 MEQ ER TABLET 40 MEQ PO (13:19)
--- NOTE | 2022-12-29 13:19 | ECG_ITS ---
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
[2022-12-29] MEDS: METRONIDAZOLE 250 MG TABLET 500 MG PO ×2 (13:31→21:04)
[2022-12-29 13:34] LABS: Magnesium 1.4 mg/dL (1.8-2.4)
[2022-12-29] MEDS: POTASSIUM CHLORIDE 40 MEQ IN 0.9%NACL 1,000 ML 200 MEQ IV (13:37)
[2022-12-29 13:50] LABS: Bilirubin Urine NEGATIVE (NEGATIVE); Blood Urine SMALL (NEGATIVE); Color Urine LT. YELLOW (YELLOW); Glucose Urine UA NEGATIVE (NEGATIVE); Ketones Urine NEGATIVE (NEGATIVE); Leukocyte Esterase Urine TRACE (NEGATIVE); Nitrite Urine NEGATIVE (NEGATIVE); Protein Urine NEGATIVE (NEG/TRACE); Urobilinogen Urine 0.2 EU/dL (0.2-1.0)
[2022-12-29 13:52] LABS: Clarity Urine SLIGHTLY CLOUDY (CLEAR)
[2022-12-29 13:53] LABS: Urine Microscopic Indicated YES
[2022-12-29 13:58] LABS: Bacteria Urine SMALL #/HPF (NONE SEEN); Cast Seen? NONE SEEN #/LPF (NONE SEEN); Crystals Seen? None Seen #/HPF (None Seen); Mucus Urine NONE SEEN (NONE SEEN); RBC Urine NONE SEEN #/HPF (0-2); Squamous Epithelial Cell Urine RARE #/LPF (NONE/RARE); Urine Culture Indicated YES
[2022-12-29 16:03] LABS: SARS-CoV-2 NAA NOT DETECTED (NOT DETECTE)
[2022-12-29] MEDS: METOPROLOL SUCCINATE 50 MG TAB.ER.24H PO (18:10)
[2022-12-29] MEDS: LACTATED RINGER'S SOLUTION 1,000 ML 100 ML IV (18:10)
[2022-12-29] MEDS: CIPROFLOXACIN IN 5 % DEXTROSE 400 MG/200 ML PIGGYBACK 200 MG IV (20:00)
[2022-12-29] MEDS: PANTOPRAZOLE SODIUM 40 MG VIAL IV (20:00)
[2022-12-29] MEDS: MAGNESIUM OXIDE 400 MG TABLET PO (20:05)
[2022-12-29 21:02] LABS: Anion Gap 14.2; BUN Creatinine Ratio 20.6; Calcium 8.5 mg/dL (8.5-10.1); Carbon Dioxide 19.2 mmol/L (21.0-32.0); Chloride 109 mmol/L (98-107); Estimated GFR (African America 47 (>=60); Estimated GFR (Non-African Ame 38 (>=60); Glucose 131 mg/dL (74-106); Sodium 140 mmol/L (136-145)
[2022-12-29] MEDS: POTASSIUM CHLORIDE 10 MEQ ER TABLET 20 MEQ PO (21:04)
[2022-12-29 21:06] LABS: Potassium 2.4 mmol/L (3.5-5.1)
--- NOTE | 2022-12-29 21:27 | PC.NURSE ---
patient's K+ 2.4 @1999 redraw patient given 10MeQ of K+ totalling 40 MeQ as ordered as PRN
[2022-12-29] MEDS: POTASSIUM CHLORIDE IN WATER 40 MEQ/400 ML PIGGYBACK 100 MEQ IV (21:47)
--- NOTE | 2022-12-29 23:50 | PC.NURSE ---
loose watery stool
[2022-12-30] VITALS (20 sets, daily range): BP systolic 133–170; BP diastolic 58–69; PULSE 51–81; RESP 18; TEMP 35.9–36.6; O2SAT 96–100; BMI 18.0
[2022-12-30] MEDS: ACETAMINOPHEN 500 MG TABLET 1000 MG PO (03:47)
[2022-12-30] MEDS: HYOSCYAMINE SULFATE 0.125 MG TAB.SUBL SL (03:47)
[2022-12-30] MEDS: LACTATED RINGER'S SOLUTION 1,000 ML 100 ML IV ×2 (03:53→13:41)
[2022-12-30] MEDS: METRONIDAZOLE 250 MG TABLET 500 MG PO (05:06)
[2022-12-30] MEDS: POTASSIUM CHLORIDE 10 MEQ ER TABLET 20 MEQ PO ×3 (05:06→20:07)
[2022-12-30 05:41] LABS: Basophils Absolute Auto 0.1 10^3/uL (0.0-0.1); Basophils Percent Auto 0.7 % (0.2-2.0); Eosinophils Absolute Auto 0.1 10^3/uL (0.0-0.7); Eosinophils Percent Auto 1.6 % (0.9-7.0); Hematocrit 32.8 % (36.0-48.0); Hemoglobin 10.9 g/dL (12.0-16.0); Immature Granulocytes Abs Auto 0.02 10^3/uL (0.00-0.03); Immature Granulocytes Pct Auto 0.3 % (0.0-0.5); Lymphocytes Absolute Auto 1.3 10^3/uL (1.2-3.8); Lymphocytes Percent Auto 18.1 % (20.5-60.0); Mean Corpuscular HGB Conc 33.2 g/dL (29.9-35.2); Mean Corpuscular Hemoglobin 31.1 pg (26.7-34.0); Mean Corpuscular Volume 93.7 fL (81.0-99.0); Mean Platelet Volume 9.5 fL (9.5-13.5); Monocytes Absolute Auto 0.9 10^3/uL (0.3-0.8); Monocytes Percent Auto 13.1 % (1.7-12.0); Neutrophils Absolute Auto 4.6 10^3/uL (1.4-6.5); Neutrophils Percent Auto 66.2 % (43.0-75.0); Platelet Count 340 10^3/uL (150-450); Red Cell Distribution Width 14.6 % (11.0-15.0)
[2022-12-30 06:08] LABS: Alanine Aminotransferase 22 U/L (14-59); Albumin Globulin Ratio 0.9; Albumin Level 2.7 g/dL (3.4-5.0); Alkaline Phosphatase 20 U/L (46-116); Anion Gap 13.8; Aspartate Amino Transferase 19 U/L (15-37); BUN Creatinine Ratio 16.9; Bilirubin Total 0.5 mg/dL (0.2-1.0); Calcium 8.5 mg/dL (8.5-10.1); Carbon Dioxide 20.1 mmol/L (21.0-32.0); Chloride 111 mmol/L (98-107); Estimated GFR (African America 50 (>=60); Estimated GFR (Non-African Ame 41 (>=60); Globulin 2.9 g/dL; Glucose 89 mg/dL (74-106); Magnesium 1.3 mg/dL (1.8-2.4); Sodium 142 mmol/L (136-145); Total Protein 5.6 g/dL (6.4-8.2)
[2022-12-30 06:23] LABS: Potassium 2.9 mmol/L (3.5-5.1)
[2022-12-30] MEDS: POTASSIUM CHLORIDE 40 MEQ in 0.9 % SODIUM CHLORIDE 250 ML 67.5 MEQ IV (07:54)
[2022-12-30] MEDS: CHOLECALCIFEROL (VITAMIN D3) 25 MCG/1,000 UNITS TABLET 50 MCG PO (09:17)
[2022-12-30] MEDS: ZINC GLUCONATE 50 MG TABLET PO (09:17)
[2022-12-30] MEDS: METOPROLOL SUCCINATE 50 MG TAB.ER.24H PO (09:17)
[2022-12-30] MEDS: MAGNESIUM OXIDE 400 MG TABLET PO ×2 (09:17→20:06)
[2022-12-30] MEDS: CLOPIDOGREL BISULFATE 75 MG TABLET PO (09:17)
[2022-12-30] MEDS: VANCOMYCIN HCL 7,500 MG/150 ML BOTTLE 125 MG PO ×4 (09:35→21:14)
--- NOTE | 2022-12-30 10:11 | CM.NOTE ---
Medicare Outpatient Observation Notice discussed with pt, pt verbalizes understanding and signs paper. Original given to pt and copy placed on pt's chart.
--- NOTE | 2022-12-30 12:43 | P.HP_ITS ---
Acute blood loss anemia-check stool for occult blood. Otherwise agree with input and findings from nurse practitioner. H&P: HPI History of Present Illness Chief complaint: DIARRHEA, WEAKNESS Narrative: Date/time of exam: 12/30/22829 This is an 87-year-old female patient with a past medical history as outlined below including recurrent UTIs, IBD following with GI as an outpatient and chronic intermittent diarrhea, CAD status post CABG x5, and GERD; who presented to the ED last night after suffering diarrhea for approximately 2 weeks that was becoming increasingly frequent and she was becoming increasingly weak. Patient reports taking an antibiotic about 2 weeks ago for UTI, with onset of diarrhea shortly after. She denies fevers or chills, melena or hematochezia, or abdominal pain. She experienced nausea with dry heaves 1 week ago but this has resolved. She notes chronic black stools at baseline due to Pepto-Bismol use, but her stools became increasingly light-colored and very liquid as her diarrhea progressed. Work-up in the ED revealed FRITZ on CKD 3A, dehydration, hypokalemia (2.2), hypomagnesemia (1.4), a repeat UA remained mildly positive for UTI, and stool studies were positive for astrovirus and C. difficile. A CT of the abdomen was mostly unremarkable with retained gallstones noted, but no acute findings.The patient was admitted to the hospitalist service yesterday evening. At the time of my exam this morning the patient is resting in a bedside chair visiting with family. She reports continued weakness and malaise, but feels somewhat improved after receiving IV fluids in the ED. She denies any further nausea or vomiting today. We discussed the need for C. difficile prophylaxis while on antibiotics in the future and the patient and her daughter verbalized understanding. She is being treated with IV fluids, p.o. vancomycin, and Cipro for a recurrent UTI. Her electrolytes will also be repleted and monitored closely. Review of Systems ROS Status of ROS 10 or more systems reviewed and unremarkable except as noted in history and below [facility] Medical History (Updated 12/30/22 @ 13:26 by Melissa Savage NP) Acute pain of right shoulder ?M25.511 - Pain in right shoulder (ICD-10) Altered mental status ?R41.82 - Altered mental status, unspecified (ICD-10) CAD (coronary artery disease) ?I25.10 - Atherosclerotic heart disease of [place] coronary artery without angina pectoris (ICD-10) Cataract ?H26.9 - Unspecified cataract (ICD-10) Cholecystectomy planned GERD (gastroesophageal reflux disease) ?K21.9 - Gastro-esophageal reflux disease without esophagitis (ICD-10) HTN (hypertension) ?I10 - Essential (primary) hypertension (ICD-10) IBD (inflammatory bowel disease) ?K52.9 - Noninfective gastroenteritis and colitis, unspecified (ICD-10) Peripheral edema ?R60.0 - Localized edema (ICD-10) Surgical History (Updated 12/29/22 @ 14:33 by Melissa Britt) History of left hip replacement ?Z96.642 - Presence of left artificial hip joint (ICD-10) S/P CABG x 5 ?Z95.1 - Presence of aortocoronary bypass graft (ICD-10) Family History (Updated 12/29/22 @ 14:40 by Melissa Britt) Father Family history of CHF (congestive heart failure) Family history of hypertension Brother Family history of cancer Sister Family history of cancer Family history of myocardial infarction Mother Family history of hypertension Family history of stroke Social History (Updated 12/29/22 @ 14:41 by Melissa Britt) Within the past year, how often did you have a drink containing alcohol: monthly or less Within the past year, how many standard drinks containing alcohol did you have on a typical day: 1 or 2 Within the past year, how often did you have six or more drinks on one occasion: never Total score: 0 Score interpretation: A score less than 3 is consistent with normal alcohol consumption. Smoking status: Never smoker Non-prescribed substance use: denies use Highest level of school completed/degree received: 9th grade Are you now , , , , never or living with a partner: In a typical week, how many times do you talk on the telephone with family, friends, or neighbors: twice per week How often do you get together with friends or relatives: twice per week How often do you attend anabaptist or pentecostalism services: never Do you belong to any clubs or organizations such as anabaptist groups unions, fraternal or athletic groups, or school groups: no Total score: 1 Score interpretation: A score of less than or equal to 1 indicates the most socially isolated. [facility] Medications and Allergies Home Medications Medication Instructions Recorded Confirmed Type clopidogrel 75 mg tablet (Plavix) 75 mg PO DAILY 09/27/22 12/29/22 History metoprolol succinate 50 mg 50 mg PO DAILY 09/27/22 12/29/22 History tablet,extended release 24 hr pantoprazole 40 mg tablet,delayed 40 mg PO DAILY 09/27/22 12/29/22 History release simvastatin 40 mg tablet 40 mg PO DAILY 09/27/22 12/29/22 History spironolactone 25 mg tablet 25 mg PO DAILY 09/27/22 12/29/22 History vedolizumab 300 mg intravenous 300 mg IV .8 weeks 09/27/22 12/29/22 History solution (Entyvio) acetaminophen 500 mg tablet 1,000 mg PO Q6H PRN pain 12/29/22 12/29/22 History alosetron 0.5 mg tablet 0.5 mg PO DAILY PRN diarrhea 12/29/22 12/29/22 History budesonide 3 mg 9 mg PO QAM 12/29/22 12/29/22 History capsule,delayed,extended release cholecalciferol (vitamin D3) 50 50 mcg PO DAILY 12/29/22 12/29/22 History mcg (2,000 unit) tablet (D3 DOTS) estradiol 0.01% (0.1 mg/gram) 1 g vaginal .TWICE A WEEK 12/29/22 12/29/22 History vaginal cream (Estrace) loperamide 2 mg capsule (Imodium 2 mg PO Q4H 12/29/22 12/29/22 History A-D) melatonin 5 mg tablet 5 mg PO DAILY 12/29/22 12/29/22 History zinc gluconate 50 mg tablet 50 mg PO DAILY 12/29/22 12/29/22 History Allergies Allergy/AdvReac Type Severity Reaction Status Date / Time levofloxacin AdvReac Severe Drowsy Verified 09/27/22 17:28 Penicillins AdvReac Severe Verified 09/27/22 17:28 Antihistamines - Alkylamine AdvReac Intermediate Verified 09/27/22 17:28 phenergen Allergy Severe Agitated Uncoded 09/27/22 17:28 Exam Constitutional Vital Signs, click to edit/add: Last Vital Signs Temp 97.8 F 11/22/23 05:08 Pulse 51 L 12/30/22 11:56 Resp 18 12/30/22 05:08 BP 133/58 12/30/22 05:08 Pulse Ox 100 12/30/22 05:08 O2 Del Method Room Air 12/30/22 05:08 Common normals: no apparent distress, oriented x3, alert and well nourished General appearance: cooperative Orientation/consciousness: Yes awake HENMT Common normals: normocephalic, head/scalp atraumatic, hearing grossly normal bilaterally and moist oral mucous membranes Face and sinus: normal facial exam Nose: external nose normal Eye Common normals: PERRL, EOMs intact bilaterally, conjunctivae normal and no scleral icterus Alignment: alignment normal Eyelid: eyelids normal Neck & C-Spine Common normals: full ROM, supple and no JVD Chest Common normals: inspection of chest normal Chest: symmetrical chest wall rise Respiratory Common normals: normal respiratory effort, no retractions, no use of accessory muscles and clear to auscultation bilaterally Effort & inspection: able to speak in complete sentences Cardio Common normals: no JVD, regular rate, regular rhythm, S1 normal heart sound, S2 normal heart sound, no gallops, no clicks, no murmurs, no rub and peripheral pulses 2+ throughout GI Common normals: Normal to inspection, nondistended, normoactive bowel sounds present, soft to palpation, non-tender, no hepatosplenomegaly, no masses and no bruits Bladder/kidney exam: bladder normal to palpation Back & Pelvis Common normals: thoracic and lumbar spine normal to inspection Extremity Common normals: normal capillary refill and no pedal edema General: normal exam except as noted; no clubbing and no cyanosis Neuro [place] Coma Scale: GCS not evaluated Common normals: CN's II-XII intact bilaterally, moves all extremities, no focal motor deficits and no sensory deficits noted Speech: speech normal Psych Common normals: mental status grossly normal, thought process normal, affect normal and activity/motor behavior normal Results Labs Labs: Short CBC 12/30/22 Range/Units 04:47 WBC 7.0 (4.0-11.0) 10^3/uL Hgb 10.9 L (12.0-16.0) g/dL Hct 32.8 L (36.0-48.0) % Plt Count 340 (150-450) 10^3/uL BMP 12/29/22 12/30/22 20:48 04:47 Sodium 140 142 Potassium 2.4 L* 2.9 L* Chloride 109 H 111 H Carbon Dioxide 19.2 L 20.1 L BUN 27.0 H 21.0 H Creatinine 1.31 H 1.24 H Glucose 131 H 89 Calcium 8.5 8.5 Liver Function 12/30/22 Range/Units 04:47 Total Bilirubin 0.5 (0.2-1.0) mg/dL AST 19 (15-37) U/L ALT 22 (14-59) U/L Alkaline Phosphatase 20 L (46-116) U/L Albumin 2.7 L (3.4-5.0) g/dL Urine 12/29/22 Range/Units 13:15 Urine Color Lt. yellow (YELLOW) Urine Clarity Slightly cloudy A (CLEAR) Urine pH 6.0 (5.0-9.0) Ur Specific [place] 1.010 (1.005-1.025) Urine Protein Negative (NEG/TRACE) mg/dL Urine Glucose (UA) Negative (NEGATIVE) mg/dL Pulse Oximetry Attestation: I have reviewed the pertinent pulse oximetry results. Imaging CT scan - abdomen: Attestation: I have reviewed the pertinent imaging results. Radiologist's impression: IMPRESSION: 1. Choledocholithiasis. 2. Bilateral renal cysts. 3. Gas within the bladder lumen may relate to recent instrumentation. In a setting lacking this history, infection can have a similar appearance. Assessment and Plan Assessment and Plan (1) Clostridium difficile colitis: Assessment and Plan: ACUTE * Adm inpatient * 2/2 recent abx administration, suspect previous colonization * Treated in ED w/ Flagyl, change to PO Vancomycin which is first line treatment for acute c-diff * Hold home antidiarrheals and immune modulating IBD meds for now * Daily CBC, CMP (2) Astrovirus gastroenteritis: Assessment and Plan: ACUTE * Usually not found in adults, but pt is immune compromised d/t chronic IBD and immunosuppressing meds * Supportive care (3) Urinary tract infection: Assessment and Plan: ACUTE * Continue IV Cipro as initiated in the ED pending UA culture results * Floranex granules BID (4) Acute dehydration: Assessment and Plan: ACUTE * 2/2 large volume GI output * 1 liter NS IVF bolus given in ED * Continue maintenance IVF w/ LR at 100/hr * Hold home spironolactone for now * CMP daily (5) Acute hyponatremia: Assessment and Plan: ACUTE * 2/2 to acute dehydration * IVF as above * CMP daily (6) Acute hypokalemia: Assessment and Plan: ACUTE * 2/2 to GI losses * KCL 40 meq PO and IV given in ED * Repeat K+ this morning remains low at 2.9 * Give additional 40 meq IVPB now * repeat lab at noon and replete again if needed * Address low magnesium as well to help keep K+ at goal * CMP daily (7) Hypomagnesemia: Assessment and Plan: ACUTE * Replete w/ Mag sulfate IVPB 2gm now * start mag oxid BID * repeat mag level in am and replete as needed (8) CAD (coronary artery disease): Assessment and Plan: CHRONIC * Continue home BB, plavix, and statin (9) GERD (gastroesophageal reflux disease): Assessment and Plan: CHRONIC * Continue PPI w/ IV preparation (10) IBD (inflammatory bowel disease): Assessment and Plan: CHRONIC * Continue home budesonide as pt is steroid dependent * Hold home alosetron, loperamide, Entyvio until pt follows up with her GI specialist (11) HTN (hypertension): Assessment and Plan: CHRONIC * Continue home BB * Hold home spironolactone
[2022-12-30 13:02] LABS: Anion Gap 15.9; BUN Creatinine Ratio 16.2; Calcium 8.7 mg/dL (8.5-10.1); Carbon Dioxide 19.9 mmol/L (21.0-32.0); Chloride 110 mmol/L (98-107); Estimated GFR (African America 53 (>=60); Estimated GFR (Non-African Ame 44 (>=60); Glucose 83 mg/dL (74-106); Potassium 3.8 mmol/L (3.5-5.1); Sodium 142 mmol/L (136-145)
[2022-12-30] MEDS: MAGNESIUM SULFATE IN WATER 4 GM/100 ML PIGGYBACK IV (14:26)
[2022-12-30] MEDS: L. ACIDOPHILUS/L.BULGARICUS 1 PACKET GRAN.PACK PO (20:06)
[2022-12-30] MEDS: CIPROFLOXACIN IN 5 % DEXTROSE 400 MG/200 ML PIGGYBACK 200 MG IV (20:06)
[2022-12-30] MEDS: PANTOPRAZOLE SODIUM 40 MG VIAL IV (20:06)
[2022-12-30] MEDS: ATORVASTATIN CALCIUM 20 MG TABLET PO (21:14)
[2022-12-31] VITALS (17 sets, daily range): BP systolic 147–160; BP diastolic 66–82; PULSE 53–68; RESP 16–18; TEMP 36.1–36.4; O2SAT 94–99
[2022-12-31] MEDS: HYOSCYAMINE SULFATE 0.125 MG TAB.SUBL SL (00:47)
[2022-12-31] MEDS: ACETAMINOPHEN 500 MG TABLET 1000 MG PO (00:47)
[2022-12-31] MEDS: LACTATED RINGER'S SOLUTION 1,000 ML 100 ML IV ×3 (02:30→22:22)
[2022-12-31] MEDS: POTASSIUM CHLORIDE 10 MEQ ER TABLET 20 MEQ PO ×3 (05:08→21:23)
[2022-12-31] MEDS: VANCOMYCIN HCL 7,500 MG/150 ML BOTTLE 125 MG PO ×4 (05:09→21:24)
[2022-12-31 05:10] LABS: Basophils Absolute Auto 0.1 10^3/uL (0.0-0.1); Eosinophils Absolute Auto 0.3 10^3/uL (0.0-0.7); Eosinophils Percent Auto 3.8 % (0.9-7.0); Hematocrit 32.4 % (36.0-48.0); Immature Granulocytes Abs Auto 0.03 10^3/uL (0.00-0.03); Immature Granulocytes Pct Auto 0.4 % (0.0-0.5); Lymphocytes Absolute Auto 1.4 10^3/uL (1.2-3.8); Lymphocytes Percent Auto 19.9 % (20.5-60.0); Mean Corpuscular Hemoglobin 31.7 pg (26.7-34.0); Mean Corpuscular Volume 93.4 fL (81.0-99.0); Mean Platelet Volume 9.5 fL (9.5-13.5); Monocytes Absolute Auto 0.7 10^3/uL (0.3-0.8); Monocytes Percent Auto 10.6 % (1.7-12.0); Neutrophils Absolute Auto 4.4 10^3/uL (1.4-6.5); Neutrophils Percent Auto 64.3 % (43.0-75.0); Platelet Count 357 10^3/uL (150-450); Red Blood Count 3.47 10^6/uL (4.20-5.40); Red Cell Distribution Width 14.9 % (11.0-15.0); White Blood Count 6.8 10^3/uL (4.0-11.0)
[2022-12-31 05:43] LABS: Alanine Aminotransferase 25 U/L (14-59); Albumin Level 2.8 g/dL (3.4-5.0); Alkaline Phosphatase 23 U/L (46-116); Anion Gap 13.4; Aspartate Amino Transferase 21 U/L (15-37); Bilirubin Total 0.3 mg/dL (0.2-1.0); Calcium 8.7 mg/dL (8.5-10.1); Carbon Dioxide 18.3 mmol/L (21.0-32.0); Chloride 111 mmol/L (98-107); Estimated GFR (African America 59 (>=60); Estimated GFR (Non-African Ame 49 (>=60); Globulin 2.8 g/dL; Glucose 94 mg/dL (74-106); Potassium 3.7 mmol/L (3.5-5.1); Sodium 139 mmol/L (136-145); Total Protein 5.6 g/dL (6.4-8.2)
[2022-12-31] MEDS: CHOLECALCIFEROL (VITAMIN D3) 25 MCG/1,000 UNITS TABLET 50 MCG PO (08:51)
[2022-12-31] MEDS: ZINC GLUCONATE 50 MG TABLET PO (08:51)
[2022-12-31] MEDS: L. ACIDOPHILUS/L.BULGARICUS 1 PACKET GRAN.PACK PO ×2 (08:51→21:24)
[2022-12-31] MEDS: MAGNESIUM OXIDE 400 MG TABLET PO ×2 (08:51→21:23)
[2022-12-31] MEDS: METOPROLOL SUCCINATE 50 MG TAB.ER.24H PO (08:51)
[2022-12-31] MEDS: BUDESONIDE 3 MG 9 EACH PO (08:51)
[2022-12-31] MEDS: CLOPIDOGREL BISULFATE 75 MG TABLET PO (08:51)
--- NOTE | 2022-12-31 11:01 | P.PN_ITS ---
Progress Note: Subjective Subjective Interval history: Patient has significant diarrhea. Is starting have some more stool in it but still very watery Exam Constitutional Vital Signs, click to edit/add: Last Vital Signs Temp 97.5 F L 12/31/22 05:52 Pulse 58 L 12/31/22 09:57 Resp 18 12/31/22 05:52 BP 160/70 H 12/31/22 05:52 Pulse Ox 96 12/31/22 05:52 O2 Del Method Room Air 12/31/22 05:52 Common normals: no apparent distress, oriented x3, alert and well nourished General appearance: cooperative Orientation/consciousness: Yes awake HENMT Common normals: normocephalic, head/scalp atraumatic, hearing grossly normal bilaterally and moist oral mucous membranes Face and sinus: normal facial exam Nose: external nose normal Eye Common normals: PERRL, EOMs intact bilaterally, conjunctivae normal and no scleral icterus Alignment: alignment normal Eyelid: eyelids normal Neck & C-Spine Common normals: full ROM, supple and no JVD Chest Common normals: inspection of chest normal Chest: symmetrical chest wall rise Respiratory Common normals: normal respiratory effort, no retractions, no use of accessory muscles and clear to auscultation bilaterally Effort & inspection: able to speak in complete sentences Cardio Common normals: no JVD, regular rate, regular rhythm, S1 normal heart sound, S2 normal heart sound, no gallops, no clicks, no murmurs, no rub and peripheral pulses 2+ throughout GI Common normals: Normal to inspection, nondistended, normoactive bowel sounds present, soft to palpation, non-tender, no hepatosplenomegaly, no masses and no bruits Bladder/kidney exam: bladder normal to palpation Back & Pelvis Common normals: thoracic and lumbar spine normal to inspection Extremity Common normals: normal capillary refill and no pedal edema General: normal exam except as noted; no clubbing and no cyanosis Neuro [place] Coma Scale: GCS not evaluated Common normals: CN's II-XII intact bilaterally, moves all extremities, no focal motor deficits and no sensory deficits noted Speech: speech normal Psych Common normals: mental status grossly normal, thought process normal, affect normal and activity/motor behavior normal Progress Note: Objective Labs Labs: Short CBC 12/31/22 Range/Units 04:24 WBC 6.8 (4.0-11.0) 10^3/uL Hgb 11.0 L (12.0-16.0) g/dL Hct 32.4 L (36.0-48.0) % Plt Count 357 (150-450) 10^3/uL BMP 12/30/22 12/31/22 12:30 04:24 Sodium 142 139 Potassium 3.8 3.7 Chloride 110 H 111 H Carbon Dioxide 19.9 L 18.3 L BUN 19.0 H 16.0 Creatinine 1.17 H 1.07 H Glucose 83 94 Calcium 8.7 8.7 Liver Function 12/31/22 Range/Units 04:24 Total Bilirubin 0.3 (0.2-1.0) mg/dL AST 21 (15-37) U/L ALT 25 (14-59) U/L Alkaline Phosphatase 23 L (46-116) U/L Albumin 2.8 L (3.4-5.0) g/dL Progress Note: A&P Assessment and Plan (1) Clostridium difficile colitis: (2) Astrovirus gastroenteritis: (3) Urinary tract infection: (4) Acute dehydration: (5) Acute hyponatremia: (6) Acute hypokalemia: (7) Hypomagnesemia: (8) CAD (coronary artery disease): (9) GERD (gastroesophageal reflux disease): (10) IBD (inflammatory bowel disease): (11) HTN (hypertension): Plan Clostridium difficile colitis: Secondary to recent antibiotic use for UTI. Continue with vancomycin. May need combination of Flagyl and vancomycin. Astrovirus gastroenteritis:-Unable to give antidiarrheal secondary to the above Urinary tract infection:-Urine culture is negative so we will DC the IV Cipro Acute dehydration: Oral intake is improving. Acute hyponatremia:-Resolved Acute hypokalemia:-Resolved Hypomagnesemia:-Resolved CAD (coronary artery disease): No chest pain GERD (gastroesophageal reflux disease): Symptoms controlled IBD (inflammatory bowel disease): Complicated secondary to the above HTN (hypertension): Medications adjusted to improve blood pressure control Moderate protein calorie malnutrition-diet supplement
[2022-12-31] MEDS: PANTOPRAZOLE SODIUM 40 MG VIAL IV (19:52)
[2022-12-31] MEDS: ATORVASTATIN CALCIUM 20 MG TABLET PO (21:24)
[2023-01-01] VITALS (7 sets, daily range): BP systolic 152; BP diastolic 74; PULSE 58–66; RESP 16; TEMP 36.7; O2SAT 97–98
[2023-01-01 05:07] LABS: Basophils Percent Auto 0.5 % (0.2-2.0); Eosinophils Absolute Auto 0.1 10^3/uL (0.0-0.7); Hematocrit 33.8 % (36.0-48.0); Hemoglobin 10.9 g/dL (12.0-16.0); Immature Granulocytes Abs Auto 0.04 10^3/uL (0.00-0.03); Immature Granulocytes Pct Auto 0.5 % (0.0-0.5); Mean Corpuscular HGB Conc 32.2 g/dL (29.9-35.2); Mean Corpuscular Hemoglobin 31.1 pg (26.7-34.0); Mean Corpuscular Volume 96.6 fL (81.0-99.0); Mean Platelet Volume 9.6 fL (9.5-13.5); Monocytes Absolute Auto 0.6 10^3/uL (0.3-0.8); Neutrophils Absolute Auto 6.2 10^3/uL (1.4-6.5); Platelet Count 380 10^3/uL (150-450); Red Cell Distribution Width 15.1 % (11.0-15.0)
[2023-01-01] MEDS: VANCOMYCIN HCL 7,500 MG/150 ML BOTTLE 125 MG PO (05:10)
[2023-01-01] MEDS: POTASSIUM CHLORIDE 10 MEQ ER TABLET 20 MEQ PO (05:10)
[2023-01-01 05:32] LABS: Alanine Aminotransferase 21 U/L (14-59); Albumin Level 2.9 g/dL (3.4-5.0); Alkaline Phosphatase 23 U/L (46-116); Anion Gap 12.7; Aspartate Amino Transferase 21 U/L (15-37); BUN Creatinine Ratio 15.6; Bilirubin Total 0.4 mg/dL (0.2-1.0); Calcium 8.7 mg/dL (8.5-10.1); Carbon Dioxide 21.3 mmol/L (21.0-32.0); Chloride 110 mmol/L (98-107); Estimated GFR (African America >60 (>=60); Estimated GFR (Non-African Ame 55 (>=60); Glucose 106 mg/dL (74-106); Magnesium 1.6 mg/dL (1.8-2.4); Sodium 140 mmol/L (136-145); Total Protein 5.9 g/dL (6.4-8.2)
--- NOTE | 2023-01-01 08:02 | P.DS_ITS ---
DS: Providers Provider Date of admission: 12/30/22 11:56 Primary care physician: Shirlene Vergara MD Consults: 12/29/22 Consult to Dietitian Routine Reason For Exam: poor appetite Reason for consultation: poor appetite 12/29/22 16:59 Occupational Therapy Eval and Treat Routine Reason for consultation: Only if needed for Rehab Has provider been notified: No Physical Therapy Eval and Treat Routine Reason for consultation: Eval and Treat Has provider been notified: No DS: Diagnosis Discharge Diagnosis (1) Clostridium difficile colitis: (2) Astrovirus gastroenteritis: (3) Urinary tract infection: (4) Acute dehydration: (5) Acute hyponatremia: (6) Acute hypokalemia: (7) Hypomagnesemia: (8) CAD (coronary artery disease): (9) GERD (gastroesophageal reflux disease): (10) IBD (inflammatory bowel disease): (11) HTN (hypertension): Plan Clostridium difficile colitis: Secondary to recent antibiotic use for UTI. Continue with vancomycin. May need combination of Flagyl and vancomycin. Astrovirus gastroenteritis:-Unable to give antidiarrheal secondary to the above Urinary tract infection:-Urine culture is negative so we will DC the IV Cipro Acute dehydration: Oral intake is improving. Acute hyponatremia:-Resolved Acute hypokalemia:-Resolved Hypomagnesemia:-Resolved CAD (coronary artery disease): No chest pain GERD (gastroesophageal reflux disease): Symptoms controlled IBD (inflammatory bowel disease): Complicated secondary to the above HTN (hypertension): Medications adjusted to improve blood pressure control Moderate protein calorie malnutrition-diet supplement ? DS: Summary Hospital Course Hospital Course: She was admitted with severe dehydration and electrolyte abnormalities. These were adjusted over time. She was found to have astrovirus as well as C. difficile colitis. She was treated initially with Flagyl and then changed to oral Vanco, her diarrhea is persisting so I discharged today we will send her home on both agents. She does have a history of chronic diarrhea. She can follow-up with a roll carrier for that later. We urged her encouraged her not to take her Lomotil secondary to having C. difficile. Follow-up on [facility]. His hemoglobin did drop 2 g. She was hypokalemic and this returned to normal. Her BUN and creatinine are somewhat up today but probably her baseline. Magnesium is low and supplemented. Medications see list. Follow-up with PCP next week and gastroenterology as soon as available. Time Spent with Patient Time attestation: Total time spent providing and/or coordinating discharge services: Exam Constitutional Vital Signs, click to edit/add: Last Vital Signs Temp 98.0 F 01/01/23 05:35 Pulse 59 L 01/01/23 07:58 Resp 16 01/01/23 05:35 BP 152/74 H 01/01/23 05:35 Pulse Ox 98 01/01/23 05:50 O2 Del Method Room Air 11/24/23 05:50 Common normals: no apparent distress, oriented x3, alert and well nourished General appearance: cooperative Orientation/consciousness: Yes awake HENMT Common normals: normocephalic, head/scalp atraumatic, hearing grossly normal bilaterally and moist oral mucous membranes Face and sinus: normal facial exam Nose: external nose normal Eye Common normals: PERRL, EOMs intact bilaterally, conjunctivae normal and no scleral icterus Alignment: alignment normal Eyelid: eyelids normal Neck & C-Spine Common normals: full ROM, supple and no JVD Chest Common normals: inspection of chest normal Chest: symmetrical chest wall rise Respiratory Common normals: normal respiratory effort, no retractions, no use of accessory muscles and clear to auscultation bilaterally Effort & inspection: able to speak in complete sentences Cardio Common normals: no JVD, regular rate, regular rhythm, S1 normal heart sound, S2 normal heart sound, no gallops, no clicks, no murmurs, no rub and peripheral pulses 2+ throughout GI Common normals: Normal to inspection, nondistended, normoactive bowel sounds present, soft to palpation, non-tender, no hepatosplenomegaly, no masses and no bruits Bladder/kidney exam: bladder normal to palpation Back & Pelvis Common normals: thoracic and lumbar spine normal to inspection Extremity Common normals: normal capillary refill and no pedal edema General: normal exam except as noted; no clubbing and no cyanosis Neuro [place] Coma Scale: GCS not evaluated Common normals: CN's II-XII intact bilaterally, moves all extremities, no focal motor deficits and no sensory deficits noted Speech: speech normal Psych Common normals: mental status grossly normal, thought process normal, affect normal and activity/motor behavior normal DS: Data Data Completed and Pending Labs on day of discharge: Labs from last 24 hours 01/01/23 04:14 WBC 8.0 RBC 3.50 L Hgb 10.9 L Hct 33.8 L MCV 96.6 MCH 31.1 MCHC 32.2 RDW 15.1 H Plt Count 380 MPV 9.6 Neut % (Auto) 78.0 H Lymph % (Auto) 13.0 L [place] % (Auto) 7.0 Eos % (Auto) 1.0 Baso % (Auto) 0.5 Neut # (Auto) 6.2 Lymph # (Auto) 1.0 L [place] # (Auto) 0.6 Eos # (Auto) 0.1 Baso # (Auto) 0.0 Abs Immat Gran (auto) 0.04 H Imm/Tot Granulo (auto) 0.5 Sodium 140 Potassium 4.0 Chloride 110 H Carbon Dioxide 21.3 Anion Gap 12.7 BUN 15.0 Creatinine 0.96 Est GFR ( Amer) >60 Est GFR (Non-Af Amer) 55 L BUN/Creatinine Ratio 15.6 Glucose 106 Calcium 8.7 Magnesium 1.6 L Total Bilirubin 0.4 AST 21 ALT 21 Alkaline Phosphatase 23 L Total Protein 5.9 L Albumin 2.9 L Globulin 3.0 Albumin/Globulin Ratio 1.0 Discharge Plan Discharge Disposition: Home, Self-Care Discharge Medications: New magnesium oxide 400 mg (241.3 mg magnesium) Tablet 400 mg PO BID Qty: 60 11RF Lactobacillus acidoph-L.bulgar [Floranex] 100 million cell Granules In Packet 1 packet PO BID 30 Days Qty: 60 11RF metronidazole 500 mg tablet 500 mg PO QID 10 Days Qty: 40 0RF vancomycin 125 mg capsule 125 mg PO Q6H 10 Days Qty: 40 0RF Continued metoprolol succinate 50 mg tablet extended release 24 hr 50 mg PO DAILY simvastatin 40 mg tablet 40 mg PO DAILY spironolactone 25 mg tablet 25 mg PO DAILY pantoprazole 40 mg tablet,delayed release (DR/EC) 40 mg PO DAILY clopidogrel [Plavix] 75 mg tablet 75 mg PO DAILY Entyvio 300 mg recon soln 300 mg IV .8 weeks alosetron 0.5 mg tablet 0.5 mg PO DAILY PRN (Reason: diarrhea) acetaminophen 500 mg tablet 1,000 mg PO Q6H PRN (Reason: pain) budesonide 3 mg capsule,delayed,extend.release 9 mg PO QAM zinc gluconate 50 mg tablet 50 mg PO DAILY cholecalciferol (vitamin D3) [D3 DOTS] 50 mcg (2,000 unit) tablet 50 mcg PO DAILY melatonin 5 mg tablet 5 mg PO DAILY estradiol [Estrace] 0.01 % (0.1 mg/gram) cream 1 g vaginal .TWICE A WEEK Held loperamide [Imodium A-D] 2 mg capsule 2 mg PO Q4H Hold Instructions: Resume on 01/05/23. Rx Instructions: administer after each loose stool until symptoms controlled; do not exceed 8 mg per 24 hrs Activity: ambulate only with your walker and increase activity as tolerated Diet: advance to your usual diet Patient Instructions: Metronidazole (By mouth), Vancomycin (By mouth), Magnesium (By mouth), Probiotic (By mouth), Dehydration (ED), C. Diff (Clostridioides Difficile) Infection (DC) Forms: Portal Instructions Follow Up Appointments: Patient is to call Dr. Vergara on to schedule a hospital stay follow up appt. for 5 to 7 days following discharge. office #: [phone] Patient is to call Dr. Rosales (Gastroenterology) on to schedule a hospital stay follow up appt. for 1 week following discharge. office #: [phone] Discharge Date/Time: 01/01/23 10:12
--- NOTE | 2023-01-01 08:07 | CM.NOTE ---
Rounds made with Dr. Lake. Plan for discharge today.
[2023-01-01] MEDS: CHOLECALCIFEROL (VITAMIN D3) 25 MCG/1,000 UNITS TABLET 50 MCG PO (08:36)
[2023-01-01] MEDS: METOPROLOL SUCCINATE 50 MG TAB.ER.24H PO (08:36)
[2023-01-01] MEDS: L. ACIDOPHILUS/L.BULGARICUS 1 PACKET GRAN.PACK PO (08:36)
[2023-01-01] MEDS: ZINC GLUCONATE 50 MG TABLET PO (08:36)
[2023-01-01] MEDS: CLOPIDOGREL BISULFATE 75 MG TABLET PO (08:36)
[2023-01-01] MEDS: MAGNESIUM OXIDE 400 MG TABLET PO (08:36)
[2023-01-01] MEDS: BUDESONIDE 3 MG 9 EACH PO (08:49)
--- NOTE | 2023-01-01 10:05 | CM.NOTE ---
2nd Notice of Important Message From Medicare discussed with pt, pt verbalizes understanding and denies questions or concerns.
== END 2023-01-01 10:12 | disposition home or self-care (01) | DRG 372 ==
LOC: ER 13:38 → MS 13:45
PROVIDERS: Nurse Practitioner; Admitting Provider Family Medicine; Emergency Provider Emergency Medicine; PCP Family Medicine; Visit Provider Family Medicine
DX: A04.72 Enterocolitis due to Clostridium difficile, not specified as recurrent (principal); D62 Acute posthemorrhagic anemia; N39.0 Urinary tract infection, site not specified; E87.1 Hypo-osmolality and hyponatremia; E44.0 Moderate protein-calorie malnutrition; N17.9 Acute kidney failure, unspecified; Z68.1 Body mass index [BMI] 19.9 or less, adult; I25.10 Atherosclerotic heart disease of native coronary artery without angina pectoris; A08.32 Astrovirus enteritis; Z95.1 Presence of aortocoronary bypass graft; K21.9 Gastro-esophageal reflux disease without esophagitis; Z87.440 Personal history of urinary (tract) infections; N18.31 Chronic kidney disease, stage 3a; E86.0 Dehydration; E87.6 Hypokalemia; E83.42 Hypomagnesemia; I12.9 Hypertensive chronic kidney disease with stage 1 through stage 4 chronic kidney disease, or unspecified chronic kidney disease; Z96.642 Presence of left artificial hip joint; Z79.899 Other long term (current) drug therapy; K80.50 Calculus of bile duct without cholangitis or cholecystitis without obstruction; K58.0 Irritable bowel syndrome with diarrhea; T36.95XA Adverse effect of unspecified systemic antibiotic, initial encounter; Z90.49 Acquired absence of other specified parts of digestive tract
CPT/HCPCS: 36415; 74177; 80048; 80053; 81001; 83735; 84132; 85025; 87086; 87507; 87635; 87811; 93005; 94667; 94668; 94761; 96361; 96365; 96366; 96367; 96375; 96376; 97110; 97162; 97165; 99285; G0378; J3480; Q9967

== ENCOUNTER 2023-01-20 11:12 | Outpatient (OUT) | payer MEDICARE, BC, SELFPAY ==
[2023-01-20 11:38] LABS: Bilirubin Urine NEGATIVE (NEGATIVE); Blood Urine NEGATIVE (NEGATIVE); Clarity Urine SLIGHTLY CLOUDY (CLEAR); Color Urine LT. YELLOW (YELLOW); Glucose Urine UA NEGATIVE (NEGATIVE); Ketones Urine NEGATIVE (NEGATIVE); Leukocyte Esterase Urine SMALL (NEGATIVE); Nitrite Urine POSITIVE (NEGATIVE); Protein Urine NEGATIVE (NEG/TRACE); Urobilinogen Urine 0.2 EU/dL (0.2-1.0); pH Urine 6.5 (5.0-9.0)
== END 2023-01-20 11:13 | disposition home or self-care (01) ==
PROVIDERS: PCP Family Medicine; Visit Provider Physician Assistant
DX: N39.0 Urinary tract infection, site not specified (principal)
CPT/HCPCS: 81003; 87086; 87150; 87186

== ENCOUNTER 2023-01-22 10:21 | Outpatient (REF) | payer MEDICARE, BC, SELFPAY ==
[2023-01-28 17:07] LABS: Lactoferrin, Fecal, Quant. 66.14 ug/mL(g) (0.00-7.24)
== END 2023-01-22 10:22 | disposition home or self-care (01) ==
LOC: LAB 10:21
PROVIDERS: PCP Family Medicine; Visit Provider Internal Medicine
DX: R19.7 Diarrhea, unspecified (principal); N39.0 Urinary tract infection, site not specified
CPT/HCPCS: 83631; 87493

== ENCOUNTER 2023-02-11 14:56 | Outpatient (OUT) | payer MEDICARE, BC, SELFPAY ==
--- OUTSIDE RECORDS SUMMARY | 2023-02-11 15:16 | XMS_ITS | CCD ---
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 Name Role Phone JfluisGiana Unavailable Hunter Brown Unavailable MD Gypsy Mcmahon Primary Care Provider [phone] MD Gypsy Mcmahon Attending Provider [phone] MD Hunter Brown Attending Provider Gypsy Mcmahon Unavailable GYPSY MCMAHON Primary Care Physician LISANDRO, DR GYPSY Olvera Admitting Unavailable MCMAHON, DR GYPSY Olvera Consulting Unavailable MCMAHON, DR GYPSY Olvera Attending Unavailable MCMAHON, DR GYPSY Olvera Primary Care Unavailable VALENTINA, DR REY Bustamante Attending Unavailabl e VALENTINA, DR REY Bustamante Consulting Unavailabl e VALENTINA, DR REY Bustamante Admitting Unavailabl e MCMAHON, DR GYPSY Olvera Primary Care Unavailable [facility] ., TIFFANIE VALLES Consulting Unavailjhonatan e MCMAHON, DR GYPSY Olvera Admitting Unavailable MCMAHON, DR GYPSY Olvera Attending Unavailable MCMAHON, DR GYPSY Olvera Primary Care Unavailable MCMAHON, DR GYPSY Olvera Consulting Unavailable MCMAHON, DR GYPSY Olvera Primary Care Unavailable MCMAHON, DR GYPSY Olvera Admitting Unavailable MCMAHON, DR GYPSY Olvera Attending Unavailable MCMAHON, DR GYPSY Olvera Consulting Unavailable LISANDRO, DR GYPSY Olvera Admitting Unavailable MCMAHON, DR GYPSY Olvera Consulting Unavailable LISANDRO, DR GYPSY Olvera Attending Unavailable MCMAHON, DR GYPSY Olvera Primary Care Unavailable MCMAHON, DR GYPSY Olvera Primary Care Unavailable CLAU NASCIMENTO Attending Unavailable CLAU NASCIMENTO Admitting Unavailable LISANDRO, DR GYPSY Olvera Primary Care Unavailable CLAU NASCIMENTO Admitting Unavailable CLAU NASCIMENTO Attending Unavailable LISANDRO, DR GYPSY Olvera Primary Care Unavailable MANNY, DR Nirav Camacho Consulting Unavailable MANNY, DR Nirav Camacho Admitting Unavailable MANNY, DR Nirav Camacho Attending Unavailable MCMAHON, DR GYPSY Olvera Admitting Unavailable MCMAHON, DR GYPSY Olvera Attending Unavailable MCMAHON, DR GYPSY Olvera Consulting Unavailable MCMAHON, DR GYPSY Olvera Primary Care Unavailable DEB, MALATHI Admitting Unavailable MCMAHON, DR GYPSY Olvera Primary Care Unavailable MI NUÑEZ Consulting Unavailable DEB, MALATHI Attending Unavailable DEB, MALATHI Consulting Unavailable MCMAHON, DR GYPSY Olvera Admitting Unavailable MCMAHON, DR GYPSY Olvera Consulting Unavailable MCMAHON, DR GYPSY Olvera Attending Unavailable MCMAHON, DR GYPSY Olvera Primary Care Unavailable HIGHLANDER, CLUA Shrestha Attending Unavailable HIGHLANDER, CLAU Shrestha Admitting Unavailable MCMAHON, DR GYPSY Olvera Primary Care Unavailable HIGHLANDER, CLAU Shrestha Attending Unavailable HIGHLANDER, CLAU Shrestha Admitting Unavailable MCMAHON, DR GYPSY Olvera Primary Care Unavailable MCMAHON, DR GYPSY Olvera Primary Care Unavailable HIGHLANDER, CLAU Shrestha Attending Unavailable HIGHLANDER, CLAU Shrestha Admitting Unavailable MCMAHON, DR GYPSY Olvera Primary Care Unavailable HIGHLANDER, CLAU Shrestha Attending Unavailable HIGHLANDER, CLAU Shrestha Admitting Unavailable MCMAHON, DR GYPSY Olvera Admitting Unavailable MCMAHON, DR GYPSY Olvera Consulting Unavailable MCMAHON, DR GYPSY Olvera Attending Unavailable MCMAHON, DR GYPSY Olvera Primary Care Unavailable MCMAHON, DR GYPSY Olvera Admitting Unavailable MCMAHON, DR GYPSY Olvera Attending Unavailable MCMAHON, DR GYPSY Olvera Consulting Unavailable MCMAHON, DR GYPSY Olvera Primary Care Unavailable VALENTINA, DR REY Bustamante Admitting Unavailabl e REINVELMA, DR REY Bustamante Attending Unavailabl e REINECK, DR REY Bustamante Consulting Unavailabl e MCMAHON, DR GYPSY Olvera Primary Care Unavailable MCMAHON, DR GYPSY Olvera Primary Care Unavailable ANNALISA .EMILIE Consulting Unavailable ANNALISA ., EMILIE Admitting Unavailable ANNALISA ., EMILIE Attending Unavailable CLAU SHAH Consulting Unavailable FAWWAD, MCCORD H Admitting Unavailable ROSE ., MR GIBBONS Consulting Unavailable FAWWAD, MCCORD H Attending Unavailable MCMAHON, DR GYPSY Olvera Primary Care Unavailable ANN LEON Consulting Unavailable SAMSA ., KANDI Consulting Unavailable HERNANDO HAMLIN Consulting Unavailable FAWWAD, MCCORD H Consulting Unavailable GIANA HOLLY Consulting Unavailable KIM ., KATIE HOWELL Consulting Unavailable JUNGERMANN, JENNIFER Consulting Unavailable GEMBUS, ROBERT Consulting Unavailable PATRICIA, ANG Consulting Unavailable HIGHLANDER, CLAU Shrestha Attending Unavailable HIGHLANDER, PETER D Admitting Unavailable MCMAHON, DR GYPSY Olvera Primary Care Unavailable Jose G Ellington Unavailable ELTAHAWY, EHAB Attending Unavailable ELMESSI, EHAB Attending Unavailable Gypsy Mcmahon Admitting Unavailable Gypsy Mcmahon Attending Unavailable Gypsy Mcmahon Primary Care Unavailable Gypsy Mcmahon Admitting Unavailable Gypsy Mcmahon Attending Unavailable Hunter Brown Admitting UnavailHunter Grimes Attending Unavailjhonatan e Gypsy Mcmahon Primary Care Unavailable Malathi Velázquez Unavailable [phone] Marvin KWON Attending Unavailable DEB, MARBIN SUMMERS E Attending Unavailab le DEB, MARBIN ANTUNEZNIALMAZ Olvera Attending Unavailab le GYPSY MCMAHON Referring Unavailable DEB, MARBIN Olvera Attending Unavailab le DEB, MARBIN ANTUNEZNIFER E Attending Unavailab le DEB, MARBIN MALATHI E Admitting Unavailab le EDB, MARBIN MALATHI E Attending Unavailab le DEB, MARBIN MALATHI E Referring Unavailab le Allergies Allergy Classification Reported Allergen(s) Allergy Type Date of Onset Reaction(s) Facility (20 sources) Promethazine; 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: [promethazine] Drug Allergy 02-04-20 13 anaphylaxis, Anaphylaxis (disorder) [facility] (20 sources) histamines Drug allergy Unknown [employer] Other (3 sources) Histamine H2 Inhibitors; 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: [Histamine H2 Inhibitors] Allergy to substance 07-16-19 13 Unknown Reaction [facility] (20 sources) levoFLOXacin; 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: [levofloxacin] Drug Allergy 07-01-19 23 Tremor (finding) [facility] (1 source) diphenhydrAMINE Drug Allergy 04-20-19 20 [facility] (1 source) ezetimibe Drug Allergy 04-20-19 20 [facility] (1 source) Gemfibrozil Drug Allergy 04-20-19 20 [facility] (2 sources) Levamisole; 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: [Phenergan] Drug Allergy 07-16-19 13 [facility] (1 source) NSAIDs Drug allergy (disorder) 04-20-19 20 [facility] (1 source) Nasal Decongestant Drug allergy (disorder) 04-20-19 20 [facility] (1 source) Darvocet-N 100 Drug allergy (disorder) 04-20-19 20 [facility] (4 sources) diphenhydrAMINE; 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: [diphenhydramine] Drug Allergy jumpy, [facility] (7 sources) Penicillin; 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: [penicillin] Drug Allergy Eruption of skin (disorder) [facility] (1 source) Histamine; 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: [HISTAMINE] Drug Allergy 02-04-20 13 [facility] (1 source) Promethazine Drug Allergy 12-07-19 18 [facility] Medications Current Medications Medication Drug Class(es) Dates Sig (Normalized) Sig (Original) alendronic acid 70 mg oral tablet (1 source) Bisphosphonate Start: 12-06-2017 take 70 mg by mouth every week Alendronate Active 70 MG PO every week December 05, 2017 11:00pm alosetron 0.5 mg oral tablet (20 sources) Serotonin-3 Receptor Antagonist Start: 10-03-2021 alosetron 0.5 mg oral tablet Refills(s) 0 Start Date: 05/14/22 Status: Ordered amoxicillin 500 mg oral capsule (3 sources) Penicillin-class Antibacterial Start: 04-16-2022 take 1 capsule by mouth every twelve hours Amoxicillin 500 MG 1 capsule Orally Twice a day for 7 days Apr, Active aspirin 81 mg delayed release oral tablet (7 sources) Platelet Aggregation Inhibitor, Nonsteroidal Anti-inflammatory Drug Start: 12-06-2017 take 1 tablet by mouth once daily Aspirin (Aspir-81) 81 mg Tablet,Delayed Release (Dr/Ec) Active 81 MG PO Daily December 05, 2017 11:00pm Aspirin 81 Activ e Pepto-bismol (20 sources) Bismuth Start: 09-22-2022 Pepto-Bismol R efills(s) 0 Start Date: 09/22/22 Status: Ordered Pepto-Bismol Act judah budesonide 3 mg delayed release oral capsule (20 sources) Corticosteroid Start: 05-14-2022 budesonide 3 m g oral delayed release capsule Refills(s) 0 Start Date: 05/14/22 Status: Ordered Start: 12-06-2017 take 9 mg by mouth once daily Budesonide Active 9 MG PO Daily December 05, 2017 11:00pm cholecalciferol 0.05 mg oral tablet (1 source) Vitamin D Start: 12-06-2017 take 1 tablet by mouth once daily Cholecalciferol (Vitamin D3) (Vitamin D3) 2,000 unit Tablet Active 2000 UNIT PO Daily December 05, 2017 11:00pm ciprofloxacin 500 mg oral tablet (1 source) Quinolone Antimicrobial Start: 02-19-2022 take 1 tablet by mouth every twelve hours Ciprofloxacin HCl 500 MG 1 tablet Orally every 12 hrs for 7 day(s) Feb, Active clopidogrel (16 sources) [id number] Platelet Inhibitor Start: 09-22-2022 clopidogrel Oral, Refills(s) 0 Start Date: 09/22/22 Status: Ordered take 1 tablet by ad th every twenty-four hours Clopidogrel Bisulfate 75 MG 1 tablet Orally Once a day Active colestipol hydrochloride 1000 mg oral tablet (6 sources) Bile Acid Sequestrant Start: 01-27-2021 take 2 tablets by mouth every twenty-four hours Colestipol HCl 1 GM 2 tablets Orally Once a day for 90 days Jan, Active Cranberry preparation (3 sources) Non-Standardized Food Allergenic Extract, Non-Standardized Plant Allergenic Extract Cranberry Extract Active estradiol 0.1 mg/ml vaginal cream (20 sources) Estrogen Start: 05-19-2022 estradiol 0.1 mg/g Vag Crm See Instructions, Refill(s) 0, pt advised to apply pea-sized amount around the urethra nightly x 3 wks then 2-3x per week thereafter for maintenance. rx prescribed by PCP initially. Start Date: 05/19/22 Status: Ordered Estradiol 0.1 MG /GM 1 gram as directed Vaginal Two times a Week for 30 days Active Estradiol 0.1 MG /GM 1 gram as directed Vaginal Two times a Week for 30 days Active fluconazole 100 mg oral tablet (9 sources) Azole Antifungal Start: 05-14-2022 fluconazole 1 00 mg Tab Refills(s) 0 Start Date: 05/14/22 Status: Ordered Start: 04-03-2022 take 1 tablet by ad th every twenty-four hours Fluconazole 100 MG 1 tablet Orally daily for 7 days 24 Feb, 2023 Active hydroCHLOROthiazide 12.5 mg / losartan potassium 50 mg oral tablet (1 source) Thiazide Diuretic, Angiotensin 2 Receptor Daryl Start: 12-06-2017 take 1 tablet by mouth once daily Losartan-Hydrochlorothiazide Active 1 TAB PO Daily December 05, 2017 11:00pm lactobacillus acidophilus [id number] unt oral tablet (2 sources) take 1 tablet by mouth every twelve hours Lactobacillus - 1 tablet twice a day Active lactobacillus acidophilus 0.05 mg / lactobacillus bulgaricus 0.05 mg oral tablet (4 sources) take 1 tablet by mouth every twelve hours Lactobacillus - 1 tablet twice a day Active Loperamide (20 sources) Opioid Agonist Start: 09-22-2022 take 1 mg by mouth once Imodium A-D mg, Oral, Refills(s) 0 Start Date: 09/22/22 Status: Ordered Start: 12-06-2017 take 2 mg by mouth once daily Loperamide Active 2 MG PO Daily December 05, 2017 11:00pm Imodium A-D prn Active Imodium A-D Acti ve Magnesium (6 sources) Magnesium 400 MG 1 tablet twice a day Active magnesium oxide 400 mg oral tablet (3 sources) take 1 tablet by mouth every twenty-four hours Magnesium Oxide 400 MG 1 tablet as needed Orally Once a day Active Metoprolol (20 sources) beta-Adrenergic Daryl Start: 05-19-2022 metoprolol Refills(s) 0 Start Date: 05/19/22 Status: Ordered Start: 12-06-2017 take 1 tablet by ad th once daily Metoprolol Succinate (Toprol Xl) 25 mg Tablet Extended Release 24 Hr Active 25 MG PO Daily December 05, 2017 11:00pm Metoprolol Succi fantasma ER 50 MG TAKE 1 TABLET DAILY for 90 Active take 1 tablet by ad th every twelve hours Metoprolol Tartrate 50 MG 1 tablet with food Orally Twice a day Active Metoprolol Tartr ate Active metroNIDAZOLE 500 mg oral tablet (8 sources) Nitroimidazole Antimicrobial Start: 08-18-2021 take 1 tablet by mouth every twelve hours metroNIDAZOLE 500 MG 1 tablet Orally bid for 7 day(s) Aug, Active take 1 tablet by mouth every six hours metroNIDAZOLE 500 MG 1 tablet 4 times a day Active Multi For Her - (20 sources) Multi For Her - as directed Orally Active Multivitamin preparation (5 sources) Start: 05-20-19 multivitamin Daily, Refill(s) 0 Start Date: 05/19/22 Status: Ordered Nature's Bounty Probiotic (2 sources) Start: 01-27-20 Nature's Bounty Probiotic Oral, Daily Start Date: 01/26/23 Status: Ordered nitrofurantoin, macrocrystals 25 mg / nitrofurantoin, monohydrate 75 mg oral capsule (3 sources) Nitrofuran Antibacterial Start: 05-20-19 take 1 mg by mouth twice daily Macrobid 100 mg Cap mg cap(s), Oral, BID, Refills(s) 0 Start Date: 05/19/22 Status: Ordered Start: 05-14-2022 take 1 capsule by [facility] every twelve hours Macrobid 100 MG 1 capsule with food Orally every 12 hrs for 7 days May, Active pantoprazole 40 mg delayed release oral tablet (20 sources) Proton Pump Inhibitor Start: 05-14-2022 Pantoprazole 40 mg D R Tab Refills(s) 0 Start Date: 05/14/22 Status: Ordered simvastatin 40 mg oral tablet (20 sources) HMG-CoA Reductase Inhibitor Start: 12-06-2017 simvastatin 40 mg Ta b Refills(s) 0 Start Date: 05/14/22 Status: Ordered spironolactone 25 mg oral tablet (20 sources) Aldosterone Antagonist Start: 05-14-2022 spironolactone 25 mg Tab Refills(s) 0 Start Date: 05/14/22 Status: Ordered Spironolactone A ctive sulfamethoxazole 800 mg / trimethoprim 160 mg oral tablet (3 sources) Dihydrofolate Reductase Inhibitor Antibacterial, Sulfonamide Antimicrobial Start: 09-10-2022 take 1 tablet by mouth every twelve hours Bactrim DS 800-160 MG 1 tablet Orally Twice a day for 5 days Sep, Active vancomycin 125 mg oral capsule (10 sources) Glycopeptide Antibacterial Start: 01-26-2023 vancomycin 125 mg Cap 125 mg = 1 cap(s) Start Date: 01/26/23 Status: Ordered Start: 01-26-2023 take 1 capsule by [facility] every twenty-four hours Vancomycin HCl 250 MG 1 capsule Orally Once a day for 30 days PLEASE CHECK ALLERGIES Jan, Active Start: 01-26-2023 Vancomycin HCl 250 MG 1 capsule four times a day for 14 days, then 1 capsule twice a day for 14 days Orally as directed for 28 days PLEASE CHECK ALLERGIES Jan, Active Entyvio (20 sources) Integrin Receptor Antagonist Start: 05-19-2022 Entyvio mg, IV, Refills(s) 0 Start Date: 05/19/22 Status: Ordered Entyvio Active Vitamin D 1000 UNIT (6 sources) take 1 tablet by ad th once daily Vitamin D 1000 UNIT 1 tablet Orally Once a day Active Vitamin D3 (20 sources) Start: 05-19-2022 Vitamin D3 Ref ills(s) 0 Start Date: 05/19/22 Status: Ordered Vitamin D3 Activ e Zinc (20 sources) Start: 05-19-2022 take 1 mg by mouth o nce daily Zinc mg, Oral, Daily, Refills(s) 0 Start Date: 05/19/22 Status: Ordered Zinc Active Completed/Discontinued Medications Medication Drug Class(es) Dates Sig (Normalized) Sig (Original) atropine sulfate 0.025 mg / diphenoxylate hydrochloride 2.5 mg oral tablet (10 sources) Anticholinergic, Cholinergic Muscarinic Antagonist, Antidiarrheal Start: 05-01-2022 take 1 tablet by mouth every six hours Lomotil 2.5-0.025 MG 1 tablet as needed Orally Four times a day for 10 days Apr, Not-Taking cefdinir 300 mg oral capsule (10 sources) Cephalosporin Antibacterial Start: 05-01-2022 Cefdinir 300 MG as directed Orally bid for 7 days Apr, Not-Taking doxycycline hyclate 100 mg oral capsule (1 source) Tetracycline-class Drug Start: 06-01-2022 take 1 capsule by mouth once daily doxycycline hyclate 100 mg Cap 100 mg = 1 cap(s), Oral, Daily, Take 1 pill the day before the procedure and 1 pill after the procedure, # 2 cap(s), Refills(s) 0, Pharmacy: [facility]/pharmacy #[id number], 178, cm, 05/19/22 13:31:00 EDT, Height/Length Dosing, 61, kg, 05/19/22 13:31:00 EDT, Weigh... Start Date: 06/01/22 Status: Ordered Iron (6 sources) Iron Not-Taking ondansetron 4 mg oral tablet (10 sources) Serotonin-3 Receptor Antagonist Start: 05-01-2022 take 1 tablet by mouth three times daily as needed Ondansetron HCl 4 MG 1 tablet Orally tid prn for 10 days Apr, Not-Taking Psyllium (6 sources) Metamucil Not-Taking sucralfate 100 mg/ml oral suspension (10 sources) Aluminum Complex take 10 mL by mouth twice daily Sucralfate 1 GM/10ML 10 mL on an empty stomach Orally Twice a day Not-Taking traMADol (6 sources) Opioid Agonist traMADol HCl Not-Taking Problems Active Problems Problem Classification Problem Date Documented Da te Episodic/Chronic Abdominal hernia (1 source) Diaphragmatic hernia without obstruction or gangrene; 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: [DIAPH HERNIA W/O OBST/GANGRENE] Onset: 03-24-2022 Episodic Abdominal pain (20 sources) Abdominal pain; 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: [Unspecified abdominal pain] Episodic Chronic ulcer of skin (4 sources) Non-pressure chronic ulcer of other part of right lower leg limited to breakdown of skin; 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: [Non-pressure chronic ulcer of other part of left lower leg limited to breakdown of skin] Onset: 11-10-2021 Chronic Coronary atherosclerosis and other heart disease (17 sources) Atherosclerotic heart disease of [place] coronary artery without angina pectoris; 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: [Coronary arteriosclerosis] Onset: 03-03-2022 Chronic Coronary atherosclerosis and other heart disease (1 source) Presence of aortocoronary bypass graft; 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: [PRESENCE AORTOCORONARY BYPASS GRAFT] Onset: 03-24-2022 Episodic Disorders of lipid metabolism (6 sources) Hyperlipidemia; 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: [Pure hypercholesterolemia, unspecified] Onset: 03-24-2022 05-14-2022 Chronic Diverticulosis and diverticulitis (20 sources) Diverticulum of large intestine without hemorrhage; 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: [Diverticulosis of large intestine without perforation or abscess without bleeding] Chronic Esophageal disorders (1 source) Gastro-esophageal reflux disease without esophagitis; 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: [GERD WITHOUT ESOPHAGITIS] Onset: 03-24-2022 Chronic Essential hypertension (20 sources) Hypertensive disorder; 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: [Essential (primary) hypertension] Onset: 01-15-2022 05-14-2022 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) Gastric ulcer; 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: [Gastric ulcer, unspecified as acute or chronic, without hemorrhage or perforation] Onset: 11-10-2021 Chronic Genitourinary symptoms and ill-defined conditions (1 source) Urge incontinence of urine 01-27-2023 Chronic Genitourinary symptoms and ill-defined conditions (20 sources) Dysuria; 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: [Sensation as if bladder still full] Onset: 12-27-2021 Episodic Headache; including migraine (4 sources) Headache; including migraine; 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: [HEADACHE UNSPECIFIED] Onset: 03-20-2022 Immunizations and screening for infectious disease (1 source) Encounter for immunization Episodic Intestinal infection (2 sources) Enterocolitis due to Clostridium difficile, not specified as recurrent; 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: [Clostridium difficile colitis] Episodic Nausea and vomiting (1 source) Nausea with vomiting, unspecified Episodic Noninfectious gastroenteritis (20 sources) Microscopic colitis; 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: [Microscopic colitis, unspecified] Onset: 01-27-2021 Resolved: 03-27-2021 Chronic Noninfectious gastroenteritis (20 sources) Colitis; 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: [Noninfective gastroenteritis and colitis, unspecified] Onset: 05-19-2022 Episodic Open wounds of extremities (1 source) Laceration without foreign body, unspecified lower leg, sequela; 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: [LACERATION W/O FB UNS LOW LEG SEQ] Onset: 03-03-2022 Episodic Osteoarthritis (1 source) Unspecified osteoarthritis, unspecified site; 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: [UNSPECIFIED OSTEOARTHRITIS UNS SITE] Onset: 03-24-2022 Chronic Osteoporosis (1 source) Age-related osteoporosis without current pathological fracture; 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: [AGE-REL OSTEOPOR W/O CURR PATH FX] Onset: 02-04-2022 Chronic Other aftercare (1 source) Other [place] [facility] (current[facility] drug therapy; 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] Onset: 03-24-2022 Episodic Other connective tissue disease (1 source) Presence of unspecified artificial hip joint; 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: [PRESENCE UNS ARTIFICIAL HIP JOINT] Onset: 03-24-2022 Chronic Other connective tissue disease (1 source) Presence of left artificial hip joint; 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: [PRESENCE LEFT ARTIFICIAL HIP JOINT] Onset: 11-10-2021 Chronic Other connective tissue disease (1 source) Bicipital tendinitis, right shoulder Episodic Other diseases of veins and lymphatics (3 sources) 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; 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: [CHRON VENOUS HTN W/ULCER RT LW EXT] Onset: 10-27-2021 Chronic Other diseases of veins and lymphatics (1 source) 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; 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: [CHRON VENOUS HTN W/ULCER ADAM LW EXT] Onset: 11-06-2021 Chronic Other gastrointestinal disorders (20 sources) Irritable bowel syndrome with diarrhea; 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: [Irritable bowel syndrome with diarrhea] Chronic Other gastrointestinal disorders (1 source) Irritable bowel syndrome with diarrhea Onset: 03-27-2021 Resolved: 03-27-2021 Chronic Other gastrointestinal disorders (20 sources) Diarrhea; 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: [Diarrhea, unspecified] Episodic Other gastrointestinal disorders (20 sources) Swollen abdomen; 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: [Abdominal distension (gaseous)] Episodic Other gastrointestinal disorders (20 sources) Constipation; 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: [Constipation, unspecified] Episodic Other gastrointestinal disorders (20 sources) Constipation alternates with diarrhea; 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: [Other specified symptoms and signs involving the digestive system and abdomen] Episodic Other gastrointestinal disorders (20 sources) Incontinence of feces; 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: [Full incontinence of feces] Episodic Other gastrointestinal disorders (3 sources) Diarrhea, unspecified Episodic Other gastrointestinal disorders (2 sources) Other specified symptoms and signs involving the digestive system and abdomen; 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: [Alternating constipation and diarrhea] Episodic Other non-epithelial cancer of skin (1 source) Personal history of other malignant neoplasm of skin; 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: [PERSONAL HX OTH MALIG NEOPLASM SKIN] Onset: 03-24-2022 Episodic Other skin disorders (1 source) Disorder of the skin and subcutaneous tissue, unspecified; 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: [DISORDER SKIN AND SUBQ TISSUE UNS] Onset: 03-03-2022 Episodic Other skin disorders (5 sources) Ingrowing nail; 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: [INGROWING NAIL] Onset: 12-18-2021 Episodic Other upper respiratory infections (1 source) Chronic sinusitis, unspecified; 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: [CHRONIC SINUSITIS UNSPECIFIED] Onset: 03-24-2022 Chronic Otitis media and related conditions (1 source) Unspecified mastoiditis, right ear; 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: [UNSPECIFIED MASTOIDITIS RIGHT EAR] Onset: 03-24-2022 Episodic Peripheral and visceral atherosclerosis (14 sources) 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; 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: [Atherosclerosis of [place] arteries of left leg with ulceration of other part of lower leg] Onset: 10-31-2021 Chronic Residual codes; unclassified (1 source) Acquired absence of other specified parts of digestive tract; 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: [ACQ ABSENCE OTH PART DIGESTV TRACT] Onset: 03-24-2022 Episodic Residual codes; unclassified (1 source) Acquired absence of both cervix and uterus; 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: [ACQUIRED ABSENCE BOTH CERVIX AND UTERUS] Onset: 03-24-2022 Episodic Residual codes; unclassified (5 sources) Localized edema; 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: [LOCALIZED EDEMA] Onset: 10-16-2021 Episodic Screening and history of mental health and substance abuse codes (1 source) Personal history of nicotine dependence; 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: [PERSONAL HISTORY OF NICOTINE DEPEND] Onset: 03-24-2022 Episodic Unclassified (1 source) OTHER TOXIC ENCEPHALOPATHY; 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: [OTHER TOXIC ENCEPHALOPATHY] Onset: 11-10-2021 Unclassified (1 source) PERSONAL HISTORY OF COVID-19; 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: [PERSONAL HISTORY OF COVID-19] Onset: 10-21-2021 Unclassified (3 sources) CONTACT W/AND (SUSP) EXPOS COVID-19; 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: [CONTACT W/AND (SUSP) EXPOS COVID-19] Onset: 08-15-2021 Unclassified (1 source) Microscopic colitis, unspecified; 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: [Microscopic colitis, unspecified] Onset: 10-29-2022 Unclassified (1 source) Acute cystitis without hematuria; 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: [Acute cystitis without hematuria] Onset: 02-16-2022 Urinary tract infections (20 sources) Acute cystitis without hematuria; 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: [Urinary tract infection, site not specified] Onset: 03-24-2022 Episodic Viral infection (2 sources) COVID-19; 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: [COVID-19] Onset: 10-21-2021 Past or Other Problems Problem Classification Problem Date Documented Da te Episodic/Chronic Acute and unspecified renal failure (1 source) Acute kidney failure, unspecified; 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: [ACUTE KIDNEY FAILURE UNSPECIFIED] Onset: 11-10-2021 Episodic Acute posthemorrhagic anemia (1 source) Acute posthemorrhagic anemia; 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: [ACUTE POSTHEMORRHAGIC ANEMIA] Onset: 11-10-2021 Episodic Bacterial infection; unspecified site (1 source) Klebsiella pneumoniae [K. pneumoniae] as the cause of diseases classified elsewhere; 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: [K PNEUMONIAE CAUSE OF DZ CLASS ELSW] Onset: 11-10-2021 Episodic Deficiency and other anemia (1 source) Nutritional anemia, unspecified; 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: [NUTRITIONAL ANEMIA UNSPECIFIED] Onset: 01-19-2022 Episodic Fluid and electrolyte disorders (1 source) Dehydration; 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: [DEHYDRATION] Onset: 11-10-2021 Episodic Gastritis and duodenitis (1 source) Gastritis, unspecified, without bleeding; 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: [GASTRITIS UNS WITHOUT BLEEDING] Onset: 11-10-2021 Episodic Gastrointestinal hemorrhage (2 sources) Melena; 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: [Gastrointestinal hemorrhage, unspecified] Onset: 11-10-2021 Episodic Malaise and fatigue (4 sources) Weakness; 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: [WEAKNESS] Onset: 11-02-2021 Episodic Other aftercare (1 source) 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; 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] Onset: 11-10-2021 Episodic Other diseases of veins and lymphatics (1 source) Venous insufficiency (chronic) (peripheral); 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: [VENOUS INSUFF CHRONIC PERIPHERAL] Onset: 11-10-2021 Episodic Other gastrointestinal disorders (2 sources) Full incontinence of feces; 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: [FULL INCONTINENCE OF FECES] Onset: 02-19-2022 Episodic Other upper respiratory infections (3 sources) Acute pharyngitis, unspecified; 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: [ACUTE PHARYNGITIS UNSPECIFIED] Onset: 10-16-2021 Episodic Unclassified (5 sources) Finding of sensation of bladder 05-19-2022 Unclassified (1 source) CONTACT W/AND (SUSP) EXPOS COVID-19; 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: [CONTACT W/AND (SUSP) EXPOS COVID-19] Onset: 08-12-2021 Results Test Name Value Interpretation Reference Range Facility ED Note-Physicianon 02-05-20 ED Note-Physician [id number]#1.00TIFF Normal [facility] Lab Reportson 02-04-2023 Lab Reports [id number]#1.00TIFF Normal [facility] Lab Reports [id number]#1.00TIFF Normal [facility] Lab Reports [id number]#1.00TIFF [facility] Consent for Treatmenton 01-09 Consent for Treatment [id number]#1.00TIFF [facility] Retail - Clinical Noteon Retail - Clinical Note [id number]#1.00TIFF [facility] Lab Reportson 01-28-2023 Lab Reports [id number]#1.00TIFF [facility] Physician Orderon 01-28-2023 Physician Order [id number]#1.00TIFF [facility] Urology Office/Clinic Noteon 01-27-2023 Urology Office/Clinic Note Chief Complaint 4 month F/U HPI Staff PRW pt. 4 month f/u. Last OV was 09/22/22. Previous Dx: Recurrent UTI, Feeling of incomplete bladder emptying, Colitis. S/p Cysto/UD 06/09/22, uses Estrace cream 2x wk and takes cranberry extract supplement. S/p UROS 2008 and 2009. UCX 12/01/22 - >100k E coli, treated with nitrofurantoin 100mg bid x7days. Dysuria: no Incomplete bladder emptying: yes, PVR 53mL Hematuria: UA shows trace today, Pt. states no blood on the paper Frequency: no Urgency: yes Nocturia: 2x's Stream: occasionally weak Post void dripping: no Wearing pads/ Depends: Pt. will will wear pads and Depends. Pt. will wear them also for BM issues. Urge incontinence: yes Stress incontinence: no Incontinence without Sensory Awareness: yes Abdominal pain: no Flank pain: no History of Present Illness staff HPI reviewed and agree. Review of Systems PHQ Score Initial Depression Screen Score: 0 SCORE no fever, chills, malaise, myalgia. no rash/lesions. no chest pain, palpitations, or SOB. no abdominal pain, nausea, vomiting. no unilateral calf swelling, redness, pain Physical Exam Vitals & Measurements HT: 70 in HT: 178 cm WT: 61 kg WT: 134.2 lb BMI: 19.25 General: nontoxic, NAD Mouth: moist mucosa Lungs: normal respiratory effort Cardio: regular rate, good distal perfusion Abdomen: nondistended, no suprapubic distention or tenderness, no CVA tenderness Neurologic: Grossly normal Skin: No rashes or suspicious lesions Assessment/Plan 1. Recurrent UTI (N39.0: Urinary tract infection, site not specified) 02/16/22 Klebsiella - Cipro x 7d 03/20 - Pseudomonas - Levaquin x 7d 04/14 - Enterococcus - Amox x 7d 04/28 - Klebsiella & Enterobacter - Cefdinir x 7d 05/11 - Enterobacter - Macrobid x 7d 06/30 - Cefdinir x 7d 07/20 - Bactrim x 3d 09/10 - Bactrim x 5d 09/22 - Enterococcus - Macrobid x5days FIRST TIME OUR OFFICE PRESCRIBED ABX 12/01 - E coli - Macrobid x7days (PER OUR OFFICE) 01/20 - Proteus & Morganella (CURRENT) Wears depends and pads, for urinary leaking and BMs. Says fecal incontinence is rare. Changes depends quickly after. Uses hygiene wipes to clean. Urinary incontinence is sporadic throughout day, tries to change pads as soon as they are wet. Uses Estrace cream 2x/wk. Taking cranberry extract supplement & probiotics via yogurt etc but cannot tolerate d-mannose. We also talked about lyndsey and garoa. S/p Cysto 06/09/22 - mildly prolapsed urethra, abnormal and trabeculated bladder, moderate A.V. PVR consistently low. No stones on imaging. Cannot use methenamine to prevent infections due to CKD. Cannot use suppressive abx due to C diff. I'm not sure what else we can offer her as far as UTI prevention. Will refer to Infectious Disease to see if they have anything to add. As far as her current UTI, I did find a study where they used IM Gentamicin for pts w C diff and concurrent UTIs and it did not affect their gut enriqueta. So we will try this - IM Gent x7d. Ordered: Body Mass Index (BMI) documented 3008F Current tobacco non-user 1036F Depression Screening Negative 3352F Influenza immunization status assessed 1030F Patient screen for fall risk: no falls in last year or 1 fall with no injury in last year 1101F Urnls Dip Stick Auto w/o Microscopy POC 82656 2. 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 he agrees w above plan. 3. Urge incontinence (N39.41: Urge incontinence) not discussed at length during ov today. we focused more on the UTIs/C diff. Certainly getting her dryer could help reduce UTIs if they are coming from the incontinence, however she reports she changes her pads as soon as they get wet so I'm not sure this is the true source. I'm more suspicious of the fecal incontinence, but again she says she changes right away and uses cleansing wipes. can revist incontinence tx options at next visit if sx bothersome/we feel this is contributing to her UTIs but obviously will need to balance the risks of side effects etc. Orders: 10152 Measure Post Void residual urine and/or bladder capacity by US- non-imaging Total time spent reviewing previous notes/results/external documents, preparing the chart, conducting the encounter with the patient and family, ordering tests/medications, and documenting the encounter was 40 minutes. Follow-up With When Contact Information MALATHI VIEIRA PA-C, URL [address] [place] [address] [phone] Additional Instructions: f/u in Spring Patient Education Urinary Tract Infection, Adult, [id number] Documentation recorded by the scribe Caprice Stratton accurately reflects the services(s) I performed and decisions made by me. Authenticated by Malathi Vieira PA-C on 01/27/2023 13:56:47. ICaprice, personally scribed for Malathi Vieira PA-C on (more content not included)... Normal [facility] Comment on above: Result Comment: Elec tronically Signed By: MALATHI VIEIRA PA-C\.br\Date and Time Signed: 01/27/23 13:57 EST\.br\Electronically Co-Signed By: Caprice Stratton\.br\Date and Time Co-Signed: 01/26/23 16:09 EST Ambulatory Visit Summaryon 1 03-29-2022 Ambulatory Visit Summary DELICIA HSU :1935 Visit Date:01/26/2023 Ambulatory Visit Instructions Your Diagnosis Recurrent UTI Feeling of incomplete bladder emptying Colitis Tests Performed Urnls Dip Stick Auto w/o Microscopy POC 16622 Your Care Team Attending Physician - MALATHI VIEIRA PA-C Primary Care Physician - GYPSY MCMAHON MD This Is Your Medications List Contact prescribing physician if questions or concerns alosetron (alosetron 0.5 mg oral tablet) bifidobacterium-lactobacillu s (Nature's Bounty Probiotic) bismuth subsalicylate (Pepto-Bismol) budesonide (budesonide 3 mg oral delayed release capsule) cholecalciferol (Vitamin D3) clopidogrel estradiol topical (estradiol 0.1 mg/g Vag Crm) loperamide (Imodium A-D) metoprolol multivitamin pantoprazole (Pantoprazole [address] Tab) simvastatin (simvastatin 40 mg Tab) spironolactone (spironolactone 25 mg Tab) vancomycin (vancomycin 125 mg Cap) vedolizumab (Entyvio) zinc sulfate (Zinc) Procedures Performed Cystoscopy (06/09/2022), Hernia (03/24/2012), Cystoscopy (10/07/2009), Introduction of tension free vaginal tape (09/12/2009), Urodynamics (07/25/2009), Anal sphincterectomy, Cataracts, Gallbladder, History of total hysterectomy, Knee, Quadruple coronary artery bypass graft. Discharge Vitals Height 178 cm Height 70 in Weight 61 kg Weight 134.2 lb BMI 19.25 What to do next Scheduled Follow-Up Appointments Wednesday. 2023 2:00 PM EDT With: MALATHI VIEIRA PA-C Where: [facility] Lab Reportson 01-26-2023 Lab Reports [id number]#1.00TIFF [facility] Patient Educationon 01-27-20 Patient Education Obstetrics and Gynec ology Urinary Tract Infection, Adult A urinary tract infection (UTI) is an infection of any part of the urinary tract. The urinary tract includes: ? The kidneys. ? The ureters. ? The bladder. ? The urethra. These organs make, store, and get rid of pee (urine) in the body. What are the causes? This infection is caused by germs (bacteria) in your genital area. These germs grow and cause swelling (inflammation) of your urinary tract. What increases the risk? The following factors may make you more likely to develop this condition: ? Using a small, thin tube (catheter) to drain pee. ? Not being able to control when you pee or poop (incontinence). ? Being female. If you are female, these things can increase the risk: ? Using these methods to prevent : ? A medicine that kills sperm (spermicide). ? A device that blocks sperm (diaphragm). ? Having low levels of a female hormone (estrogen). ? Being . You are more likely to develop this condition if: ? You have genes that add to your risk. ? You are sexually active. ? You take antibiotic medicines. ? You have trouble peeing because of: ? A prostate that is bigger than normal, if you are male. ? A blockage in the part of your body that drains pee from the bladder. ? A kidney stone. ? A nerve condition that affects your bladder. ? Not getting enough to drink. ? Not peeing often enough. ? You have other conditions, such as: ? Diabetes. ? A weak disease-fighting system (immune system). ? Sickle cell disease. ? Gout. ? Injury of the spine. What are the signs or symptoms? Symptoms of this condition include: ? Needing to pee right away. ? Peeing small amounts often. ? Pain or burning when peeing. ? Blood in the pee. ? Pee that smells bad or not like normal. ? Trouble peeing. ? Pee that is cloudy. ? Fluid coming from the vagina, if you are female. ? Pain in the belly or lower back. Other symptoms include: ? Vomiting. ? Not feeling hungry. ? Feeling mixed up (confused). This may be the first symptom in older adults. ? Being tired and grouchy (irritable). ? A fever. ? Watery poop (diarrhea). How is this treated? ? Taking antibiotic medicine. ? Taking other medicines. ? Drinking enough water. In some cases, you may need to see a specialist. Follow these instructions at home: Medicines ? Take acqr-tnb-wpbmqpj and prescription medicines only as told by your doctor. ? If you were prescribed an antibiotic medicine, take it as told by your doctor. Do not stop taking it even if you start to feel better. General instructions ? Make sure you: ? Pee until your bladder is empty. ? Do not hold pee for a long time. ? Empty your bladder after sex. ? Wipe from front to back after peeing or pooping if you are a female. Use each tissue one time when you wipe. ? Drink enough fluid to keep your pee pale yellow. ? Keep all follow-up visits. Contact a doctor if: ? You do not get better after 1?2 days. ? Your symptoms go away and then come back. Get help right away if: ? You have very bad back pain. ? You have very bad pain in your lower belly. ? You have a fever. ? You have chills. ? You feeling like you will vomit or you vomit. Summary ? A urinary tract infection (UTI) is an infection of any part of the urinary tract. ? This condition is caused by germs in your genital area. ? There are many risk factors for a UTI. ? Treatment includes antibiotic medicines. ? Drink enough fluid to keep your pee pale yellow. This information is not intended to replace advice given to you by your health care provider. Make sure you discuss any questions you have with your health care provider. Document Revised: 09/06/2020 Document Reviewed: 09/06/2020 [employer] Patient Education ? 2022 [employer] Normal [facility] Lab Reportson 01-25-2023 Lab Reports .[id number]#1.00TIFF Normal [facility] Lab Reports .[id number]#1.00TIFF Normal [facility] Lab Reportson 12-04-2022 Lab Reports [id number]#1.00TIFF Normal [facility] Physician Orderon 12-01-2022 Physician Order [id number]#1.00TIFF [facility] Office Visiton 11-11-2022 Follow-up visit [id number] Delicia Hsu 1935 F Date Provider Department Center 11/11/2022 [facility] Family History Problem Relation Age of Onset Aneurysm Mother Heart attack Father Family Status - Relation Status Age at Mother Father Level of Service:34023 MI OFFICE/OUTPATIENT ESTABLISHED LOW MDM 20-29 MIN Normal [facility] Lab Reportson 09-25-2022 Lab Reports [id number]#1.00CD:127 [facility] Lab Reports [id number]#1.00CD:127 Normal [facility] Physician Orderon 09-23-2022 Physician Order [id number]#1.00CD:127 [facility] Screenson 09-23-2022 Screens [id number]#1.00CD:127 [facility] Ambulatory Visit Summaryon 0 09-22-2022 Ambulatory Visit Summary DELICIA HSU :1935 Visit Date:09/22/2022 Ambulatory Visit Instructions Your Diagnosis Recurrent UTI Feeling of incomplete bladder emptying Colitis Your Care Team Attending Physician - DEB ZAZUETA, MALATHI Olvera Primary Care Physician - GYPSY MCMAHON MD This Is Your Medications List estradiol topical (estradiol 0.1 mg/g Vag Crm) Contact prescribing physician if questions or concerns alosetron (alosetron 0.5 mg oral tablet) bismuth subsalicylate (Pepto-Bismol) budesonide (budesonide 3 mg oral delayed release capsule) cholecalciferol (Vitamin D3) clopidogrel loperamide (Imodium A-D) metoprolol multivitamin pantoprazole (Pantoprazole [address] Tab) simvastatin (simvastatin 40 mg Tab) spironolactone (spironolactone 25 mg Tab) vedolizumab (Entyvio) zinc sulfate (Zinc) Procedures Performed Cystoscopy (06/09/2022), Hernia (03/24/2012), Cystoscopy (10/07/2009), Introduction of tension free vaginal tape (09/12/2009), Urodynamics (07/25/2009), Anal sphincterectomy, Cataracts, Gallbladder, History of total hysterectomy, Knee, Quadruple coronary artery bypass graft. Discharge Vitals Heart Rate (Peripheral) 78 Blood Pressure 142/90 Height 178 cm Height 70 in Weight 61 kg Weight 134.2 lb BMI 19.25 What to do next Scheduled Follow-Up Appointments Wednesday 1:00 PM EST With: DEB ZAZUETA, MALATHI Olvera Where: [facility] Patient Educationon 09-23-19 23 Patient Education Obstetrics and Gynec ology Urinary Tract Infection, Adult A urinary tract infection (UTI) is an infection of any part of the urinary tract. The urinary tract includes: ? The kidneys. ? The ureters. ? The bladder. ? The urethra. These organs make, store, and get rid of pee (urine) in the body. What are the causes? This infection is caused by germs (bacteria) in your genital area. These germs grow and cause swelling (inflammation) of your urinary tract. What increases the risk? The following factors may make you more likely to develop this condition: ? Using a small, thin tube (catheter) to drain pee. ? Not being able to control when you pee or poop (incontinence). ? Being female. If you are female, these things can increase the risk: ? Using these methods to prevent : ? A medicine that kills sperm (spermicide). ? A device that blocks sperm (diaphragm). ? Having low levels of a female hormone (estrogen). ? Being . You are more likely to develop this condition if: ? You have genes that add to your risk. ? You are sexually active. ? You take antibiotic medicines. ? You have trouble peeing because of: ? A prostate that is bigger than normal, if you are male. ? A blockage in the part of your body that drains pee from the bladder. ? A kidney stone. ? A nerve condition that affects your bladder. ? Not getting enough to drink. ? Not peeing often enough. ? You have other conditions, such as: ? Diabetes. ? A weak disease-fighting system (immune system). ? Sickle cell disease. ? Gout. ? Injury of the spine. What are the signs or symptoms? Symptoms of this condition include: ? Needing to pee right away. ? Peeing small amounts often. ? Pain or burning when peeing. ? Blood in the pee. ? Pee that smells bad or not like normal. ? Trouble peeing. ? Pee that is cloudy. ? Fluid coming from the vagina, if you are female. ? Pain in the belly or lower back. Other symptoms include: ? Vomiting. ? Not feeling hungry. ? Feeling mixed up (confused). This may be the first symptom in older adults. ? Being tired and grouchy (irritable). ? A fever. ? Watery poop (diarrhea). How is this treated? ? Taking antibiotic medicine. ? Taking other medicines. ? Drinking enough water. In some cases, you may need to see a specialist. Follow these instructions at home: Medicines ? Take rrak-mda-nihubue and prescription medicines only as told by your doctor. ? If you were prescribed an antibiotic medicine, take it as told by your doctor. Do not stop taking it even if you start to feel better. General instructions ? Make sure you: ? Pee until your bladder is empty. ? Do not hold pee for a long time. ? Empty your bladder after sex. ? Wipe from front to back after peeing or pooping if you are a female. Use each tissue one time when you wipe. ? Drink enough fluid to keep your pee pale yellow. ? Keep all follow-up visits. Contact a doctor if: ? You do not get better after 1?2 days. ? Your symptoms go away and then come back. Get help right away if: ? You have very bad back pain. ? You have very bad pain in your lower belly. ? You have a fever. ? You have chills. ? You feeling like you will vomit or you vomit. Summary ? A urinary tract infection (UTI) is an infection of any part of the urinary tract. ? This condition is caused by germs in your genital area. ? There are many risk factors for a UTI. ? Treatment includes antibiotic medicines. ? Drink enough fluid to keep your pee pale yellow. This information is not intended to replace advice given to you by your health care provider. Make sure you discuss any questions you have with your health care provider. Document Revised: 09/06/2020 Document Reviewed: 09/06/2020 [employer] Patient Education ? 2022 [employer] [facility] Urology Office/Clinic Noteon 09-22-2022 Urology Office/Clinic Note Chief Complaint UTI infection HPI Staff Pt is here today due to UTI last seen in our office 05/19/22 by HOLLY due to reoccuring UTI, feeling of imcompletely emptying bladder, Colitis * Estrace Cream re started at that time (originally prescribed by PCP) S/P Cysto by PRW 06/09/22 CT 05/27/22 Reoccurring UTI. Off and on for 2 weeks PCP did U/A. given Bactrim , symptoms not resolved. C&S this morning at [facility] ( not finalized) UTI symptoms Memory issues, losses balance, dizziness. BBSQ 19-20 Dysuria: _denies Incomplete bladder emptying: _denies Hematuria: denies visible blood Frequency: _she can go all day without haven't go Urgency: _denies Nocturia: _2-3 times a night Stream: _denies hesitation, strong stream Leaking: _sometimes Post void dripping: _denies Wearing pads/ Depends: _pads and depends daily Urge incontinence: _sometimes Stress incontinence: _denies Incontinence without Sensory Awareness: _denies Abdominal pain: _denies Flank pain: denies Sexual complaints: _denies History of Present Illness staff HPI reviewed and agree. Review of Systems PHQ Score Initial Depression Screen Score: 0 no fever, chills, malaise, myalgia. no rash/lesions. no chest pain, palpitations, or SOB. no abdominal pain, nausea, vomiting. no unilateral calf swelling, redness, pain Physical Exam Vitals & Measurements HR: 78(Peripheral) BP: 142/90 HT: 70 in HT: 178 cm WT: 61 kg WT: 134.2 lb BMI: 19.25 General: nontoxic, NAD Mouth: moist mucosa Lungs: normal respiratory effort Cardio: regular rate, good distal perfusion Abdomen: nondistended, no suprapubic distention or tenderness, no CVA tenderness Neurologic: Grossly normal Skin: No rashes or suspicious lesions Assessment/Plan PRW pt. S/p TVT sling 2009 1. Recurrent UTI (N39.0: Urinary tract infection, site not specified) S/p Cysto 06/09/22 - mildly prolapsed urethra, abnormal and trabeculated bladder, moderate A.V. Recurring UTI. Off and on for 2 weeks PCP did U/A, given Bactrim x 5d, symptoms not resolved per daughter. C&S this morning at [facility] (not finalized) - will call pt w/ results and send abx if needed. UTI symptoms include memory issues, losses balance, dizziness. 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 has been using consistently. Pt states she can wait all day without voiding, she does leak and wears pads and depends daily. Admits she isn't drinking much. Discussed importance of increasing fluid intake. Daughter states the pt is taking cranberry extract supplements. (couldn't tolerate d-mannose, probiotics) Daughter states that the pt wakes up multiple times a night to void, advised daughter that this is due to the pt not voiding throughout the day. Talked about timed voids. Will give daughter a standing order for U.Cx if the pt were to develop sxs in the future. Advised daughter to call our office if they do end up having to send a U.Cx to [facility] so we can review the results. 2. Feeling of incomplete bladder emptying (R39.14: Feeling of incomplete bladder emptying) Hx of urodynamics in 2008 and 2009 reports she does not feel her bladder is empty PVR 56 cc at last OV 3. Colitis (K52.9: Noninfective gastroenteritis and colitis, unspecified) Pt's daughter states she has diarrhea about 3 wks ago. Advised pt and daughter imporance to have regular BM's. Follow up in 4-6 mos. All questions/concerns were discussed. Pt to call the office if she encounters any issues prior. Pt acknowledges understanding. Follow-up With When Contact Information MALATHI VIEIRA PA-C, URL [address] [place] [address] Additional Instructions: Patient Education Urinary Tract Infection, Adult, Yurf-mg-Shpa I, Jazlyn Lucero, personally scribed for Malathi Vieira PA-C on 09/22/2022 15:36:00. . Documentation recorded by the scribbeba Lucero accurately reflects the services(s) I performed and decisions made by me. Authenticated by Malathi Vieira PA-C on 09/22/2022 16:15:40. Problem List/Past Medical History Ongoing Colitis Feeling of incomplete bladder emptying Hyperlipidemia Hypertension Recurrent UTI Historical No qualifying data Procedure/Surgical History Cystoscopy (06/09/2022), Hernia (03/24/2012), Cystoscopy (10/07/2009), Introduction of tension free vaginal tape (09/12/2009), Urodynamics (07/25/2009), Anal sphincterectomy, Cataracts, Gallbladder, History of total hysterectomy, Knee, Quadruple coronary artery bypass graft. Medications alosetron 0.5 mg oral tablet budesonide 3 mg (more content not included)... Normal [facility] Comment on above: Result Comment: Elec tronically Signed By: MALATHI VIEIRA PA-C\.br\Date and Time Signed: 09/22/22 16:16 EDT\.br\Electronically Co-Signed By: Jazlyn Lucero\.br\Date and Time Co-Signed: 09/22/22 15:38 EDT Lab Reportson 07-02-2022 Lab Reports [id number]:127 Normal [facility] Office Visiton 06-30-2022 Follow-up visit [id number] Delicia Hsu 1935 F Date Provider Department Center 06/30/2022 Kulwinder-JAKE BARRY Tatyana Hunt Family History Problem Relation Age of Onset Aneurysm Mother Heart attack Father Family Status - Relation Status Age at Mother Father Level of Service:53554 MI OFFICE/OUTPATIENT NEW MODERATE MDM 45-59 MINUTES Normal [facility] Consent for Procedure/Surger yon 06-10-2022 Consent for Procedure/Surgery [id number]:127 Normal [facility] Patient Educationon 06-10-19 Patient Education Obstetrics and Gynec ology Urinary Tract Infection, Adult A urinary tract infection (UTI) is an infection of any part of the urinary tract. The urinary tract includes: ? The kidneys. ? The ureters. ? The bladder. ? The urethra. These organs make, store, and get rid of pee (urine) in the body. What are the causes? This infection is caused by germs (bacteria) in your genital area. These germs grow and cause swelling (inflammation) of your urinary tract. What increases the risk? The following factors may make you more likely to develop this condition: ? Using a small, thin tube (catheter) to drain pee. ? Not being able to control when you pee or poop (incontinence). ? Being female. If you are female, these things can increase the risk: ? Using these methods to prevent : ? A medicine that kills sperm (spermicide). ? A device that blocks sperm (diaphragm). ? Having low levels of a female hormone (estrogen). ? Being . You are more likely to develop this condition if: ? You have genes that add to your risk. ? You are sexually active. ? You take antibiotic medicines. ? You have trouble peeing because of: ? A prostate that is bigger than normal, if you are male. ? A blockage in the part of your body that drains pee from the bladder. ? A kidney stone. ? A nerve condition that affects your bladder. ? Not getting enough to drink. ? Not peeing often enough. ? You have other conditions, such as: ? Diabetes. ? A weak disease-fighting system (immune system). ? Sickle cell disease. ? Gout. ? Injury of the spine. What are the signs or symptoms? Symptoms of this condition include: ? Needing to pee right away. ? Peeing small amounts often. ? Pain or burning when peeing. ? Blood in the pee. ? Pee that smells bad or not like normal. ? Trouble peeing. ? Pee that is cloudy. ? Fluid coming from the vagina, if you are female. ? Pain in the belly or lower back. Other symptoms include: ? Vomiting. ? Not feeling hungry. ? Feeling mixed up (confused). This may be the first symptom in older adults. ? Being tired and grouchy (irritable). ? A fever. ? Watery poop (diarrhea). How is this treated? ? Taking antibiotic medicine. ? Taking other medicines. ? Drinking enough water. In some cases, you may need to see a specialist. Follow these instructions at home: Medicines ? Take koew-lkp-cphpysq and prescription medicines only as told by your doctor. ? If you were prescribed an antibiotic medicine, take it as told by your doctor. Do not stop taking it even if you start to feel better. General instructions ? Make sure you: ? Pee until your bladder is empty. ? Do not hold pee for a long time. ? Empty your bladder after sex. ? Wipe from front to back after peeing or pooping if you are a female. Use each tissue one time when you wipe. ? Drink enough fluid to keep your pee pale yellow. ? Keep all follow-up visits. Contact a doctor if: ? You do not get better after 1?2 days. ? Your symptoms go away and then come back. Get help right away if: ? You have very bad back pain. ? You have very bad pain in your lower belly. ? You have a fever. ? You have chills. ? You feeling like you will vomit or you vomit. Summary ? A urinary tract infection (UTI) is an infection of any part of the urinary tract. ? This condition is caused by germs in your genital area. ? There are many risk factors for a UTI. ? Treatment includes antibiotic medicines. ? Drink enough fluid to keep your pee pale yellow. This information is not intended to replace advice given to you by your health care provider. Make sure you discuss any questions you have with your health care provider. Document Revised: 09/06/2020 Document Reviewed: 09/06/2020 [employer] Patient Education ? 2022 [employer]. [facility] Urology Office/Clinic Noteon 06-09-2022 Urology Office/Clinic Note Chief Complaint pt here for a cysto UD HPI Staff Pt here for a cysto UD, ABX taken. History of Present Illness I have reviewed and verified the staff HPI to be accurate for this encounter. Review of Systems PHQ Score Initial Depression Screen Score: 0 ROS - Provider Constitutional: denies weight loss, denies hot flashes. Eyes: denies eye problems. Gastrointestinal: denies nausea, denies vomiting. Cardiovascular: denies chest pain or angina. Integumentary: no dryness Musculoskeletal: denies musculoskeletal symptoms. ENMT: denies otolaryngeal symptoms. Respiratory: no shortness of breath. Heme/Lymph: denies easy bleeding tendency, denies easy bruising tendency. Psychiatric: no confusion, no anxiety. Genitourinary: denies vaginal discharge, denies incontinence, denies dysuria, denies hematuria, denies urinary frequency, denies amenorrhea, denies menorrhagia, denies abnormal bleeding, denies pelvic pain, denies genital sores, and denies decreased libido. Physical Exam Vitals & Measurements HR: 59(Peripheral) BP: 183/71 HT: 70 in HT: 178 cm WT: 61 kg WT: 134.2 lb BMI: 19.25 General Appearance: alert , no acute distress, well nourished, well developed female. Genitourinary: bladder nonpalpable, no flank pain. Procedure Operative Information Anesthesia Type: Local Procedure: Local Cystoscopy Complications: None Surgical risks, benefits, details of the procedure have been explained to the patient. Full informed consent has been obtained. Intraoperative Information Prepped: Patient is brought back to the endoscopy suite. Patient is placed in modified dorso/lithotomy position. Patient prepped in the usual fashion with Betadine solution. 2% Xylocaine Jelly is placed per Urethra. After waiting several minutes, the Cystoscope is introduced. The Urethra is: _mildly prolapsed The Bladder: Abnormal, Trabeculated: _No tumors, No stones, No CARLEY, Moderate A.V. The Ureteral orifices: Show efflux of clear urine Specimens Removed: None Removal: Cystoscope is removed. The patient tolerated it well. Postoperative Information Patient is discharged home with antibiotic coverage. Follow up arranged. Assessment/Plan S/p TVT sling 2009 1. 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 shares she used for 1 month and did not notice an improvement with infections so she stopped using. Restarted on cream at Last OV. she is not applying cream correctly. Cysto done IO today showed The Urethra is: _mildly prolapsed The Bladder: Abnormal, Trabeculated: _No tumors, No stones, No CARLEY, Moderate A.V. Pt will start Estradiol 1gm vaginally 2x a week and rubbing a pea size amount around her urethra. today, nurse educated her and her daughter on correct method of applying the cream. 2. Feeling of incomplete bladder emptying (R39.14: Feeling of incomplete bladder emptying) Hx of urodynamics in 2008 and 2009 reports she does not feel her bladder is empty PVR 56 cc at last OV 3. Colitis (K52.9: Noninfective gastroenteritis and colitis, unspecified) concerned about infections since she is unable to receive Entyvio infusions (due to colitis) while on abx. advised pt that Entyvio can actually increase amount of UTIs. it's not a systemic immunosuppressant but rather a gut-selective biologic, however there are reports of increased infections with it (usually URI but also UTIs). may need to speak w GI doctor about discontinuing this if all other measures fail. explained to pt and her daughter that having Colitis increases the risk of fistula. pt has noticed 'particles' in the urine sometimes. hasn't noticed air/bubbles but admits she doesn't really check. has been experiencing uncontrolled diarrhea since being on all the rounds of abx recently. advised that her cx have shown bacteria common to stool, so if it's not a fistula, it's likely coming from the outside in. recommended optimizing hygiene and working with GI to improve the diarrhea. Follow-up With When Contact Information Marvin KWON MD, URL In 4 months 10/10/2022 EDT [facility] [address], [place] [address]- [phone] Additional Instructions: Patient Education Urinary Tract Infection, Adult, Qorp-hc-Exlw I, Rajani Locke, personally scribed for Dr. Kwon on 06/09/2022 14:30:17. . Documentation recorded by the scribRajani olvera, accurately reflects the services(s) I performed and decisions made by me. Problem List/Past Medical History Ongoing Colitis Feeling of incomplete bladder emptying Hyperlip (more content not included)... [facility] Comment on above: Result Comment: Elec tronically Signed By: Marvin KWON MD\.br\Date and Time Signed: 06/09/22 14:35 EDT\.br\Electronically Co-Signed By: Rajani Locke MA\.br\Date and Time Co-Signed: 06/09/22 14:30 EDT Lab Reportson 06-02-2022 Lab Reports [id number]#[id number]:127 [facility] Lab Reports [id number]:127 [facility] Lab Reports [id number]:127 [facility] Lab Reports [id number]#1.00CD:127 [facility] Lab Reports [id number]:127 [facility] RAD - CT Reporton 06-02-2022 RAD - CT Report [id number]:127 Normal [facility] CT ABD/PELVIS WO CONon 05-27 CT ABD/PELVIS WO CON EXAMINATION: CT ABD/PELVIS WO CON, 05/27/2022 9:02 AM EDT HISTORY: Acute cystitis abdominal pain. COMPARISON: None. TECHNIQUE: CT scan of the abdomen and pelvis was performed without IV contrast. CT dose reduction technique was used, including Automated Exposure Control. Findings: Lack of intravenous contrast limits evaluation. ABDOMEN: The liver, spleen, and adrenal glands are unremarkable. The gallbladder is surgically absent. The pancreas is mildly atrophic. No renal stones or collecting system dilatation. There are bilateral renal cysts. The largest is an exophytic cyst off the lower pole left kidney measuring 7.5 cm. The visualized portions of the bilateral ureters are nondilated. Small hiatal hernia. There are colonic diverticula. Sigmoid wall thickening likely relates to lack of distention. No bowel obstruction. The appendix is nondilated. The aorta is normal caliber. Moderate to severe atherosclerotic disease. No enlarged abdominal lymph nodes or free abdominal fluid. Pelvis: Evaluation is limited due to streak artifact generated by the left hip arthroplasty. There is a small focus of gas within the bladder lumen. The uterus is surgically absent. No enlarged pelvic lymph nodes or free pelvic fluid. No aggressive sclerotic or lytic osseous lesions. Mild multilevel degenerative spondylosis of the lumbar spine. 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 IMPRESSION: 1. Small focus of gas within the bladder lumen. This may relate to recent instrumentation. In a setting lacking this history, infection can have a similar appearance. 2. Renal cysts. 3. Diverticulosis without evidence of acute diverticulitis. Electronically authenticated by: MI NUÑEZ Date: 2022-05-27 10:34 Normal [facility] Physician Referralon 023 Physician Referral [id number]#[id number]:127 Normal [facility] Ambulatory Visit Summaryon 0 05-19-2022 Ambulatory Visit Summary DELICIA HSU :1935 Visit Date:05/19/2022 Ambulatory Visit Instructions Your Diagnosis Recurrent UTI Feeling of incomplete bladder emptying Colitis Tests Performed Urnls Dip Stick Auto w/o Microscopy POC [address]107 CT Abdomen/Pelvis w/ Contrast -- Results Pending -- Please visit your patient portal for your results or contact your primary care physician. Your Care Team Attending Physician - MALATHI VIEIRA PA-C Primary Care Physician - GYPSY MCMAHON MD Referring Physician - GYPSY MCMAHON MD This Is Your Medications List estradiol topical (estradiol 0.1 mg/g Vag Crm) Contact prescribing physician if questions or concerns alosetron (alosetron 0.5 mg oral tablet) budesonide (budesonide 3 mg oral delayed release capsule) cholecalciferol (Vitamin D3) fluconazole (fluconazole 100 mg Tab) metoprolol multivitamin nitrofurantoin (Macrobid 100 mg Cap) pantoprazole (Pantoprazole [address] Tab) simvastatin (simvastatin 40 mg Tab) spironolactone (spironolactone 25 mg Tab) vedolizumab (Entyvio) zinc sulfate (Zinc) Procedures Performed Hernia (03/24/2012), Cystoscopy (10/07/2009), Introduction of tension free vaginal tape (09/12/2009), Urodynamics (07/25/2009), Anal sphincterectomy, Cataracts, Gallbladder, History of total hysterectomy, Knee, Quadruple coronary artery bypass graft. Discharge Vitals Height 178 cm Height 70 in Weight 61 kg Weight 134.2 lb BMI 19.25 What to do next You Need to Schedule the Following Appointments Follow Up with MALATHI VIEIRA PA-C, URL When: Where: [address] [place] [address] Medications What How Much When Instructions New estradiol topical (estradiol 0.1 mg/ g Vag Crm) See instructions pt advised to apply pea-sized amount around the urethra nightly x 3 wks then 2-3x per week thereafter for maintenance. rx prescribed by PCP initially. Unchanged alosetron (alosetron 0.5 mg oral tablet) Contact prescribing physician if questions or concerns Unchanged budesonide (budesonide 3 mg oral delayed release capsule) Contact prescribing physician if questions or concerns Unchanged cholecalciferol (Vitamin D3) Contact prescribing physician if questions or concerns Unchanged fluconazole (fluconazole 100 mg Tab) Contact prescribing physician if questions or concerns Unchanged metoprolol Contact prescribing physician if questions or concerns Unchanged multivitamin Every day Contact prescribing physician if questions or concerns Unchanged nitrofurantoin (Macrobid 100 mg Cap) By Mouth 2 times a day Contact prescribing physician if questions or concerns Unchanged pantoprazole (Pantoprazole [address] Tab) Contact prescribing physician if questions or concerns Unchanged simvastatin (simvastatin 40 mg Tab) Contact prescribing physician if questions or concerns Unchanged spironolactone (spironolactone 25 mg Tab) Contact prescribing physician if questions or concerns Unchanged vedolizumab (Entyvio) Intravenous Contact prescribing physician if questions or concerns Unchanged zinc sulfate (Zinc) By Mouth Every day Contact prescribing physician if questions or concerns Test Results Urnls Dip Stick Auto w/o Microscopy POC 48969 (05/19/2022) Bilirubin Urine Dipstick - Negative Blood Urine Dipstick - Negative Glucose Urine Dipstick - Negative Ketones Urine Dipstick - Trace - 5 mg/dl Leukocytes Urine Dipstick - 1+ Small Nitrite Urine Dipstick - Negative Protein Urine Dipstick - Negative Specific [place] Urine Dipstick - 1.020 Urine Appearance Urine Dipstick - Turbid Urine Color Urine Dipstick - Dark yellow Urobilinogen Urine Dipstick - Normal 0.2-1 EU/dl pH Urine Dipstick - 5.5 Allergies Phenergan (Anaphylaxis) levoFLOXacin (Shaking) Problems Ongoing - Any problem that you are currently receiving treatment for. Colitis Feeling of incomplete bladder emptying Hyperlipidemia Hypertension Recurrent UTI Education Materials Urinary Tract Infection, Adult A urinary tract infection (UTI) is an infection of any part of the urinary tract. The urinary tract includes the kidneys, ureters, bladder, and urethra. These organs make, store, and get rid of urine in the body. Your health care provider may use other names to describe the infection. An upper UTI affects the ureters and kidneys (pyelonephritis). A lower UTI affects the bladder (cystitis) and urethra (urethritis). What are the causes? Most urinary tract infections are caused by bacteria in your genital area, around the entrance to your urinary tract (urethra). These bacteria grow and cause inflammation of your urinary tract. What increases the risk? You are more likely to develop this condition if: ? You have a urinary catheter that stays in place (indwelling). ? You are not able to control when you urinate or have a bowel movement (you have incontinence). ? You are female and you: ? Use a sper (more content not included)... Normal [facility] Patient Educationon 05-20-19 Patient Education Obstetrics and Gynec ology Urinary Tract Infection, Adult A urinary tract infection (UTI) is an infection of any part of the urinary tract. The urinary tract includes the kidneys, ureters, bladder, and urethra. These organs make, store, and get rid of urine in the body. Your health care provider may use other names to describe the infection. An upper UTI affects the ureters and kidneys (pyelonephritis). A lower UTI affects the bladder (cystitis) and urethra (urethritis). What are the causes? Most urinary tract infections are caused by bacteria in your genital area, around the entrance to your urinary tract (urethra). These bacteria grow and cause inflammation of your urinary tract. What increases the risk? You are more likely to develop this condition if: ? You have a urinary catheter that stays in place (indwelling). ? You are not able to control when you urinate or have a bowel movement (you have incontinence). ? You are female and you: ? Use a spermicide or diaphragm for control. ? Have low estrogen levels. ? Are . ? You have certain genes that increase your risk (genetics). ? You are sexually active. ? You take antibiotic medicines. ? You have a condition that causes your flow of urine to slow down, such as: ? An enlarged prostate, if you are male. ? Blockage in your urethra (stricture). ? A kidney stone. ? A nerve condition that affects your bladder control (neurogenic bladder). ? Not getting enough to drink, or not urinating often. ? You have certain medical conditions, such as: ? Diabetes. ? A weak disease-fighting system (immunesystem). ? Sickle cell disease. ? Gout. ? Spinal cord injury. What are the signs or symptoms? Symptoms of this condition include: ? Needing to urinate right away (urgently). ? Frequent urination or passing small amounts of urine frequently. ? Pain or burning with urination. ? Blood in the urine. ? Urine that smells bad or unusual. ? Trouble urinating. ? Cloudy urine. ? Vaginal discharge, if you are female. ? Pain in the abdomen or the lower back. You may also have: ? Vomiting or a decreased appetite. ? Confusion. ? Irritability or tiredness. ? A fever. ? Diarrhea. The first symptom in older adults may be confusion. In some cases, they may not have any symptoms until the infection has worsened. How is this diagnosed? This condition is diagnosed based on your medical history and a physical exam. You may also have other tests, including: ? Urine tests. ? Blood tests. ? Tests for sexually transmitted infections (STIs). If you have had more than one UTI, a cystoscopy or imaging studies may be done to determine the cause of the infections. How is this treated? Treatment for this condition includes: ? Antibiotic medicine. ? Kelw-snm-bcnhnve medicines to treat discomfort. ? Drinking enough water to stay hydrated. If you have frequent infections or have other conditions such as a kidney stone, you may need to see a health care provider who specializes in the urinary tract (urologist). In rare cases, urinary tract infections can cause sepsis. Sepsis is a life-threatening condition that occurs when the body responds to an infection. Sepsis is treated in the hospital with IV antibiotics, fluids, and other medicines. Follow these instructions at home: Medicines ? Take qvbm-yoo-gfrivkv and prescription medicines only as told by your health care provider. ? If you were prescribed an antibiotic medicine, take it as told by your health care provider. Do not stop using the antibiotic even if you start to feel better. General instructions ? Make sure you: ? Empty your bladder often and completely. Do not hold urine for long periods of time. ? Empty your bladder after sex. ? Wipe from front to back after a bowel movement if you are female. Use each tissue one time when you wipe. ? Drink enough fluid to keep your urine pale yellow. ? Keep all follow-up visits as told by your health care provider. This is important. Contact a health care provider if: ? Your symptoms do not get better after 1?2 days. ? Your symptoms go away and then return. Get help right away if you have: ? Severe pain in your back or your lower abdomen. ? A fever. ? Nausea or vomiting. Summary ? A urinary tract infection (UTI) is an infection of any part of the urinary tract, which includes the kidneys, ureters, bladder, and urethra. ? Most urinary tract infections are caused by bacteria in your genital area, around the entrance to your urinary tract (urethra). ? Treatment for this condition often includes antibiotic medicines. ? If you were prescribed an antibiotic medicine, take it as told by your health care provider. Do not stop using the antibiotic even if you start to feel better. ? Keep all follow-up visits as told by your health care provider. This is important. This in (more content not included)... Normal [facility] Patient Letter FTMCon 2022 Patient Letter [facility] (Inserted Image. Delaney ble to display) May 19, 2022 Dear Ms Hsu, My apologies that I forgot to write this down for you at your visit today. Here are the ofns-[id number]-[id number] supplements I would recommend for UTI prevention: probiotics D-mannose cranberry extract You should be able to find combination products that have all 3 ingredients. Provider Signature: Malathi Vieira PA-C Physician Breast Trimmer [facility] [address], [place] [address] Normal [facility] CULTURE URINEon 05-14-2022 CULTURE URINE Culture Observations : CARBAPENEM RESISTANT ENTEROBACTERIACEAE ISOLATED. PLEASE FOLLOW APPROPRIATE ISOLATION PROCEDURES. Isolate 1 Citrobacter braakii 50,000 cfu/mL of ORGANISM 1 Citrobacter braakii ANTIBIOTIC M.I.C RX STATUS Piperacillin/Tazobactam >=128 R F Cefazolin >=64 R F Ceftazidime >=64 R F Ceftriaxone >=64 R F Ertapenem 4 R F Imipenem <=0.25 S F Amikacin <=2 S F Gentamicin <=1 S F Tobramycin <=1 S F Ciprofloxacin <=0.25 S F Levofloxacin 0.5 S F Nitrofurantoin 64 I F Trimethoprim/Sulfamethoxazol e <=20 S F Normal [facility] Comment on above: Performed By: #### U RCX #### [facility] [address] [address] [address] Anthony Bonilla UA RANDOMon 05-11-2022 Bilirubin Ql (U) Negative Normal NEGATIVE [facility] Comment on above: Performed By: #### U RCX #### [facility] [address] [address] [address] Anthony Bonilla Clarity (U) SL CLOUDY Abnormal CLEAR [facility] Comment on above: Performed By: #### U RCX #### [facility] [address] [address] [address] Anthony Bonilla Color (U) LT. YELLOW Normal YELLOW [facility] Comment on above: Performed By: #### U RCX #### [facility] [address] [address] [address] Anthony Bonilla Glucose Ql (U) Negative Normal NEGATIVE [facility] Comment on above: Performed By: #### U RCX #### [facility] [address] [address] [address] Anthony Bonilla Hemoglobin Ql (U) Negative Normal NEGATIVE [facility] Comment on above: Performed By: #### U RCX #### [facility] [address] [address] [address] Anthony Bonilla Ketones Ql (U) Negative Normal NEGATIVE [facility] Comment on above: Performed By: #### U RCX #### [facility] [address] [place] [address] Dr. Anthony Bonilla LEUKOCYTES MODERATE Abnormal NEGATIVE [facility] Comment on above: Performed By: #### U RCX #### [facility] [address] [address] [address] Anthony Bonilla Nitrite Ql (U) Negative Normal NEGATIVE [facility] Comment on above: Performed By: #### U RCX #### [facility] [address] [place] [address] Dr. Anthony Bonilla pH (U) 5.5 [pH] Normal 5-9 [facility] Comment on above: Performed By: #### U RCX #### [facility] [address] [address] [address] Anthony Bonilla SPEC GRAVITY 1.020 Normal 1.005-<=1. 025 [facility] Comment on above: Performed By: #### U RCX #### [facility] [address] [place] [address] Dr. Anthony Bonilla UA PROTEIN Negative Normal NEGATIVE/ TRACE [facility] Comment on above: Performed By: #### U RCX #### [facility] [address] [place] [address] Dr. Anthony Bonilla Urobilinogen Qn (U) 0.2 {Gen'U}/dL Normal 0.2 - 1. 0 [facility] Comment on above: Performed By: #### U RCX #### [facility] [address] [place] [address] Dr. Anthony Bonilla CULTURE URINEon 05-01-2022 CULTURE URINE Isolate 1 Klebsiella pneumoniae >100,000 cfu/mL of Isolate 2 Enterobacter aerogenes >100,000 cfu/mL of ORGANISM 1 Klebsiella pneumoniae ANTIBIOTIC M.I.C RX STATUS Ampicillin 16 R F Ampicillin/Sulbactam 4 S F Piperacillin/Tazobactam <=4 S F Cefazolin <=4 S F Ceftazidime <=1 S F Ceftriaxone <=1 S F Ertapenem <=0.5 S F Imipenem <=0.25 S F Amikacin <=2 S F Gentamicin <=1 S F Tobramycin <=1 S F Ciprofloxacin <=0.25 S F Levofloxacin <=0.12 S F Nitrofurantoin 32 S F Trimethoprim/Sulfamethoxazol e <=20 S F ORGANISM 2 Enterobacter aerogenes ANTIBIOTIC M.I.C RX STATUS Piperacillin/Tazobactam <=4 S F Cefazolin <=4 R F Ceftazidime <=1 S F Ceftriaxone <=1 S F Ertapenem <=0.5 S F Imipenem <=0.25 S F Amikacin <=2 S F Gentamicin <=1 S F Tobramycin <=1 S F Ciprofloxacin <=0.25 S F Levofloxacin <=0.12 S F Nitrofurantoin 64 I F Trimethoprim/Sulfamethoxazol e <=20 S F Normal [facility] Comment on above: Performed By: #### U RCX #### [facility] [address] [place] [address] Dr. Anthony Bonilla CULTURE URINEon 04-16-2022 CULTURE URINE Isolate 1 Enterococcus faecium 20,000 cfu/mL of ORGANISM 1 Enterococcus faecium ANTIBIOTIC M.I.C RX STATUS Beta-Lactamase Neg NEG F Benzylpenicillin <=0.12 S F Ampicillin <=2 S F Gentamicin High Level (synergy) SYN-S S F Streptomycin High Level (synergy) SYN-S S F Ciprofloxacin 1 S F Levofloxacin 2 S F Quinupristin/Dalfopristin 1 S F Linezolid 2 S F Vancomycin <=0.5 S F Tetracycline >=16 R F Nitrofurantoin 64 I F Normal [facility] Comment on above: Performed By: #### U RCX #### [facility] [address] [place] [address] Dr. Anthony Bonilla UA RANDOMon 04-14-2022 Bilirubin Ql (U) Negative Normal NEGATIVE [facility] Comment on above: Performed By: #### U RCX #### [facility] [address] [place] [address] Dr. Anthony Bonilla Clarity (U) CLEAR Normal CLEAR [facility] Comment on above: Performed By: #### U RCX #### [facility] [address] [place] [address] Dr. Anthony Bonilla Color (U) LT. YELLOW Normal YELLOW [facility] Comment on above: Performed By: #### U RCX #### [facility] [address] [place] [address] Dr. Anthony Bonilla Glucose Ql (U) Negative Normal NEGATIVE [facility] Comment on above: Performed By: #### U RCX #### [facility] [address] [place] [address] Dr. Anthony Bonilla Hemoglobin Ql (U) Negative Normal NEGATIVE [facility] Comment on above: Performed By: #### U RCX #### [facility] [address] [place] [address] Dr. Anthony Bonilla Ketones Ql (U) Negative Normal NEGATIVE [facility] Comment on above: Performed By: #### U RCX #### [facility] [address] [place] [address] Dr. Anthony Bonilla LEUKOCYTES MODERATE Abnormal NEGATIVE [facility] Comment on above: Performed By: #### U RCX #### [facility] [address] [place] [address] Dr. Anthony Bonilla Nitrite Ql (U) Negative Normal NEGATIVE [facility] Comment on above: Performed By: #### U RCX #### [facility] [address] [address] [address] Anthony Bonilla pH (U) 5.5 [pH] Normal 5-9 [facility] Comment on above: Performed By: #### U RCX #### [facility] [address] [address] [address] Anthony Bonilla SPEC GRAVITY 1.020 Normal 1.005-<=1. 025 [facility] Comment on above: Performed By: #### U RCX #### [facility] [address] [address] [address] Anthony Bonilla UA PROTEIN Negative Normal NEGATIVE/ TRACE [facility] Comment on above: Performed By: #### U RCX #### [facility] [address] [address] [address] Anthony Bonilla Urobilinogen Qn (U) 0.2 {Gen'U}/dL Normal 0.2 - 1. 0 [facility] Comment on above: Performed By: #### U RCX #### [facility] [address] [address] [address] Anthony Bonilla Urinalysis - DIPSTICKon 03-12 Appearance (U) clear [employer] Other Bilirubin Ql (U) [employer] Other Color (U) dark yellow [employer] Other Glucose Ql (U) Negative [employer] Other Hemoglobin Ql (U) Negative [employer] Other Ketones Ql (U) trace [employer] Other Leukocyte esterase Test strip Ql (U) [employer] Other Nitrite Ql (U) Negative [employer] Other pH (U) 5.0 [pH] [employer] Other Protein Ql (U) Negative [employer] Other Specific gravity (U) [Rel density] 1.015 [employer] [facility] [employer] Other Urobilinogen (U) [Mass/Vol] 0.2 mg/dL [employer] Other Urinalysis - DIPSTICK [employer] [facility] [employer] Other Urine Cultureon 03-30-2022 Bacteria identified Cx Nom (U) ORGANISM: Yeast Like Organism (O:YLO) [place] Count 10,000 UNABLE TO ISOLATE FOR IDENTIFICATION PERFORMED BY: [place] [address] PATHOLOGIST BOARDING SPECIALIST TIEN VELASQUEZ M.D. Normal [facility] Comment on above: Performed By: #### C UU #### [address] Urine Culture 10,000 [employer] [facility] [employer] Other Bacteria identified Cx Nom (U) [employer] [facility] [employer] Other CULTURE URINEon 03-23-2022 CULTURE URINE Isolate 1 Pseudomonas aeruginosa >100,000 cfu/mL of ORGANISM 1 Pseudomonas aeruginosa ANTIBIOTIC M.I.C RX STATUS Piperacillin/Tazobactam 8 S F Ceftazidime 4 S F Imipenem 1 S F Amikacin <=2 S F Gentamicin <=1 S F Tobramycin <=1 S F Ciprofloxacin <=0.25 S F Levofloxacin 0.5 S F Normal [facility] Comment on above: Performed By: #### U RCX #### [facility] [address] [place] [address] Dr. Anthony Bonilla CARDIAC DARWIN ADMITon 023 CK [Catalytic activity/Vol] 137 U/L Normal 26-192 [facility] Comment on above: Performed By: #### U RCX #### [facility] [address] [place] [address] Dr. Anthony Bonilla CK.MB [Mass/Vol] 1.05 ng/mL Normal <=3.60 [facility] Comment on above: Performed By: #### U RCX #### [facility] [address] [place] [address] Dr. Anthony Bonilla HSTROP 17.6 pg/mL Normal 4.0-51.3 [facility] Comment on above: Result Comment: CUT- OFF POINTS HAVE BEEN ESTABLISHED BASED ON THE FOURTH UNIVERSAL DEFINITIONS OF MYOCARDIAL INFARCTION. THE UPPER REFERENCE LIMIT (URL) OF TROPONIN, DEFINED THE 99TH PERCENTILE OF cTnI DISTRIBUTION IN A REFERENCE POPULATION, HAS BEEN CONFIRMED THE DECISION THRESHOLD FOR ND DIAGNOSIS. Performed By: #### U RCX #### [facility] [address] [place] [address] Dr. Anthony Bonilla CANDIDA 72 ng/mL Normal 9-82 [facility] Comment on above: Performed By: #### U RCX #### [facility] [address] [place] [address] Dr. Anthony Bonilla CBC AUTO DIFFon 03-20-2022 BASO # 0.0 103/ul Normal 0.0-0.1 [facility] Comment on above: Performed By: #### C BC #### [facility] [address] [place] [address] Dr. Anthony Bonilla Basophils/100 WBC (Bld) 0.3 % Normal 0.2-2.0 [facility] Comment on above: Performed By: #### C BC #### [facility] [address] [place] [address] Dr. Anthony Bonilla EO # 0.0 103/ul Normal 0.0-0.7 [facility] Comment on above: Performed By: #### C BC #### [facility] [address] [place] [address] Dr. Anthony Bonilla Eosinophils/100 WBC (Bld) 0.1 % Critically low 0.9-7.0 [facility] Comment on above: Performed By: #### C BC #### [facility] [address] [place] [address] Dr. Anthony Bonilla Erythrocyte distribution width (RBC) [Ratio] 15.9 % Critically high 11.0-15.0 [facility] Comment on above: Performed By: #### C BC #### [facility] [address] [place] [address] Dr. Anthony Bonilla Hematocrit (Bld) [Volume fraction] 33.6 % Critically low 36.0-48.0 [facility] Comment on above: Performed By: #### C BC #### [facility] [address] [address] [address] Anthony Bonilla Hemoglobin (Bld) [Mass/Vol] 11.2 g/dL Critically low 12.0-16.0 [facility] Comment on above: Performed By: #### C BC #### [facility] [address] [address] [address] Anthony Bonilla IG # 0.04 10e3/ul Critically high 0.00-0.03 [facility] Comment on above: Performed By: #### C BC #### [facility] [address] [place] [address] Dr. Anthony Bonilla IG % 0.3 % Normal 0.0-0.5 [facility] Comment on above: Performed By: #### C BC #### [facility] [address] [address] [address] Anthony Bonilla LYMPH # 0.8 103/ul Critically low 1.2-3.8 [facility] Comment on above: Performed By: #### C BC #### [facility] [address] [place] [address] Dr. Anthony Bonilla Lymphocytes/100 WBC (Bld) 6.4 % Critically low 20.5-60.0 [facility] Comment on above: Performed By: #### C BC #### [facility] [address] [place] [address] Dr. Anthony Bonilla MANUAL DIFF REQ NO Normal [facility] Comment on above: Performed By: #### C BC #### [facility] [address] [address] [address] Anthony Bonilla MCH (RBC) [Entitic mass] 28.9 pg Normal 26.7-34.0 [facility] Comment on above: Performed By: #### C BC #### [facility] [address] [place] [address] Dr. Anthony Bonilla MCHC (RBC) [Mass/Vol] 33.3 g/dL Normal 29.9-35.2 [facility] Comment on above: Performed By: #### C BC #### [facility] [address] [place] [address] Dr. Anthony Bonilla MCV (RBC) [Entitic vol] 86.8 fL Normal 81.0-99.0 [facility] Comment on above: Performed By: #### C BC #### [facility] [address] [place] [address] Dr. Anthony Bonilla MONO # 1.1 103/ul Critically high 0.3-0.8 [facility] Comment on above: Performed By: #### C BC #### [facility] [address] [place] [address] Dr. Anthony Bonilla Monocytes/100 WBC (Bld) 8.3 % Normal 1.7-12.0 [facility] Comment on above: Performed By: #### C BC #### [facility] [address] [place] [address] Dr. Anthony Bonilla NEUT # 11.2 103/ul Critically high 1.4-6.5 [facility] Comment on above: Performed By: #### C BC #### [facility] [address] [place] [address] Dr. Anthony Bonilla Neutrophils/100 WBC (Bld) 84.6 % Critically high 43.0-75.0 [facility] Comment on above: Performed By: #### C BC #### [facility] [address] [place] [address] Dr. Anthony Bonilla Platelet mean volume (Bld) [Entitic vol] 9.7 fL Normal 9.5-13.5 [facility] Comment on above: Performed By: #### C BC #### [facility] [address] [place] [address] Dr. Anthony Bonilla PLT 274 103/ul Normal 150-450 [facility] Comment on above: Performed By: #### C BC #### [facility] [address] [place] [address] Dr. Anthony Bonilla RBC 3.87 106/ul Critically low 4.20-5.40 [facility] Comment on above: Performed By: #### C BC #### [facility] [address] [place], [place] [address] Dr. Anthony Bonilla WBC 13.2 103/ul Critically high 4.0-11.0 [facility] Comment on above: Performed By: #### C BC #### [facility] [address] [place], [place] [address] HEAD WO CONon 03-20-2022 CT HEAD WO CON EXAMINATION: CT HEAD WO CON HISTORY: HEADACHE which is worsening. COMPARISON: 11/01/2021 TECHNIQUE: CT examination of the head without IV contrast. Sagittal and coronal reconstructions were obtained. Dose reduction techniques were achieved by using automated exposure control and/or adjustment of mA and/or kV according to patient size and/or use of iterative reconstruction technique. FINDINGS: The ventricles are mildly enlarged, the lateral ventricles are relatively symmetric and the third ventricles in the midline. The sylvian fissures and cortical sulci are borderline prominent in size. There is no evidence of an intracranial hemorrhage, mass lesion or apparent acute infarct. Prominent diminished attenuation is seen in the deep white matter. The cerebellum and visualized brainstem appear unremarkable. A small amount of mucosal change and bubbles are seen in the left side of the sphenoid sinus and the visualized paranasal sinuses are otherwise clear. The middle ears are aerated. There is minimal mastoiditis on the right. There is no evidence of an acute skull fracture. IMPRESSION: There is no evidence of an intracranial hemorrhage, mass lesion or apparent acute infarct. Diffuse atrophy is present. Prominent diminished attenuation is seen in the deep white matter indicating small vessel ischemic change. A small amount of focal sinusitis is seen in the left sphenoid sinus, which is unchanged. There is now a small amount of mastoiditis present on the right which was not apparent in the prior study. There is no apparent acute skull fracture and the overall appearance is otherwise unchanged. Electronically authenticated by: CLAU SHAH Date: 2022-03-20 20:30 Normal [facility] ER URINE PROFILEon 3 Bilirubin Ql (U) Negative Normal NEGATIVE [facility] Comment on above: Performed By: #### C BC #### [facility] [address] [place], [place] [address] Dr. Anthony Bonilla Clarity (U) CLEAR Normal CLEAR [facility] Comment on above: Performed By: #### C BC #### [facility] [address] [place] [address] Dr. Anthony Bonilla Color (U) LT. YELLOW Normal YELLOW [facility] Comment on above: Performed By: #### C BC #### [facility] [address] [place] [address] Dr. Anthony Bonilla ERUAHD A micrscopic examina tion will be performed if indicated. Normal [facility] Comment on above: Performed By: #### C BC #### [facility] [address] [place] [address] Dr. Anthony Bonilla Glucose Ql (U) Negative Normal NEGATIVE [facility] Comment on above: Performed By: #### C BC #### [facility] [address] [place] [address] Dr. Anthony Bonilla Hemoglobin Ql (U) LARGE Abnormal NEGATIVE [facility] Comment on above: Performed By: #### C BC #### [facility] [address] [place] [address] Dr. Anthony Bonilla Ketones Ql (U) Negative Normal NEGATIVE [facility] Comment on above: Performed By: #### C BC #### [facility] [address] [place] [address] Dr. Anthony Bonilla LEUKOCYTES SMALL Abnormal NEGATIVE [facility] Comment on above: Performed By: #### C BC #### [facility] [address] [place] [address] Dr. Anthony Bonilla Nitrite Ql (U) Positive Abnormal NEGATIVE [facility] Comment on above: Performed By: #### C BC #### [facility] [address] [place] [address] Dr. Anthony Bonilla pH (U) 7.0 [pH] Normal 5-9 [facility] Comment on above: Performed By: #### C BC #### [facility] [address] [place] [address] Dr. Anthony Bonilla Protein (U) [Mass/Vol] 30 mg/dL Abnormal NEGATIVE/ TRACE [facility] Comment on above: Performed By: #### C BC #### [facility] [address] [place] [address] Dr. Anthony Bonilla SPEC GRAVITY 1.015 Normal 1.005-<=1. 025 [facility] Comment on above: Performed By: #### C BC #### [facility] [address] [place] [address] Dr. Anthony Bonilla UR MICRO IND INDICATED Normal [facility] Comment on above: Performed By: #### C BC #### [facility] [address] [place] [address] Dr. Anthony Bonilla Urobilinogen Qn (U) 1.0 {Gen'U}/dL Normal 0.2 - 1. 0 [facility] Comment on above: Performed By: #### C BC #### [facility] [address] [place] [address] Dr. Anthony Bonilla PROF 14(COMP METB)on 023 Albumin [Mass/Vol] 3.4 g/dL Normal 3.4-5.0 [facility] Comment on above: Performed By: #### U RCX #### [facility] [address] [place] [address] Dr. Anthony Bonilla Albumin/Globulin [Mass ratio] 1.2 {ratio} Normal [facility] Comment on above: Performed By: #### U RCX #### [facility] [address] [place] [address] Dr. Anthony Bonilla ALP [Catalytic activity/Vol] 26 U/L Critically low 46-116 [facility] Comment on above: Performed By: #### U RCX #### [facility] [address] [place] [address] Dr. Anthoyn Bonilla ALT [Catalytic activity/Vol] 21 U/L Normal 14-59 [facility] Comment on above: Performed By: #### U RCX #### [facility] [address] [place] [address] Dr. Anthony Bonilla Anion gap [Moles/Vol] 13.7 mmol/L Normal [facility] Comment on above: Performed By: #### U RCX #### [facility] [address] [address] [address] Anthony Bonilla AST [Catalytic activity/Vol] 20 U/L Normal 15-37 [facility] Comment on above: Performed By: #### U RCX #### [facility] [address] [address] [address] Anthony Bonilla Bilirubin [Mass/Vol] 1.2 mg/dL Critically high 0.2-1.0 [facility] Comment on above: Performed By: #### U RCX #### [facility] [address] [address] [address] Anthony Bonilla Calcium [Mass/Vol] 9.4 mg/dL Normal 8.5-10.1 [facility] Comment on above: Performed By: #### U RCX #### [facility] [address] [place] [address] Dr. Anthony Bonilla Chloride [Moles/Vol] 99 mmol/L Normal 98-107 [facility] Comment on above: Performed By: #### U RCX #### [facility] [address] [address] [address] Anthony Bonilla CO2 [Moles/Vol] 29.1 mmol/L Normal 21.0-32.0 [facility] Comment on above: Performed By: #### U RCX #### [facility] [address] [place] [address] Dr. Anthony Bonilla Creatinine [Mass/Vol] 1.02 mg/dL Normal 0.55-1.02 [facility] Comment on above: Performed By: #### U RCX #### [facility] [address] [place] [address] Dr. Anthony Bonilla EGFR-AF TURKS AND [place]ER >60 Normal >=60 [facility] Comment on above: Performed By: #### U RCX #### [facility] [address] [address] [address] Anthony Bonilla EGFR-NON AF TURKS AND [place]ER 52 mL/min/1.73m2 Critically low >=60 [facility] Comment on above: Performed By: #### U RCX #### [facility] [address] [address] [address] Anthony Bonilla Globulin (S) [Mass/Vol] 2.9 g/dL Normal [facility] Comment on above: Performed By: #### U RCX #### [facility] [address] [address] [address] Anthony Bonilla Glucose [Mass/Vol] 98 mg/dL Normal 74-106 [facility] Comment on above: Performed By: #### U RCX #### [facility] [address] [address] [address] Anthony Bonilla Potassium [Moles/Vol] 3.8 mmol/L Normal 3.5-5.1 [facility] Comment on above: Performed By: #### U RCX #### [facility] [address] [place] [address] Dr. Anthony Bonilla Protein [Mass/Vol] 6.3 g/dL Critically low 6.4-8.2 [facility] Comment on above: Performed By: #### U RCX #### [facility] [address] [address] [address] Anthony Bonilla Sodium [Moles/Vol] 138 mmol/L Normal 136-145 [facility] Comment on above: Performed By: #### U RCX #### [facility] [address] [place] [address] Dr. Anthony Bonilla Urea nitrogen [Mass/Vol] 16.0 mg/dL Normal 7.0-18.0 [facility] Comment on above: Performed By: #### U RCX #### [facility] [address] [address] [address] Anthony Bonilla Urea nitrogen/Creatinine [Mass ratio] 15.7 mg/mg Normal [facility] Comment on above: Performed By: #### U RCX #### [facility] [address] [address] [address] Anthony Bonilla URINE MICROSCOPIC ONLYon BACTERIA LARGE Abnormal NONE SEEN [facility] Comment on above: Performed By: #### C BC #### [facility] [address] [place] [address] Dr. Anthony Bonilla Bacteria identified Cx Nom (U) INDICATED Normal [facility] Comment on above: Performed By: #### C BC #### [facility] [address] [place] [address] Dr. Anthony Bonilla CAST NONE SEEN Normal NONE SEEN [facility] Comment on above: Performed By: #### C BC #### [facility] [address] [place] [address] Dr. Anthony Bonilla Crystals LM Nom (Urine sed) NONE SEEN Normal NONE SEEN [facility] Comment on above: Performed By: #### C BC #### [facility] [address] [place] [address] Dr. Anthony Bonilla Epithelial cells LM Ql (Urine sed) FEW Abnormal NONE SEEN /RARE [facility] Comment on above: Performed By: #### C BC #### [facility] [address] [place] [address] Dr. Anthony Bonilla MUCOUS NONE SEEN Normal NONE SEEN [facility] Comment on above: Performed By: #### C BC #### [facility] [address] [place] [address] Dr. Anthony Bonilla RBC 10-20 Abnormal 0-2 [facility] Comment on above: Performed By: #### C BC #### [facility] [address] [place] [address] Dr. Anthony Bonilla WBC 50-75 Abnormal NONE SEEN [facility] Comment on above: Performed By: #### C BC #### [facility] [address] [place] [address] Dr. Anthony Bonilla CALPROTECTIN, FECALon 2022 Calprotectin, Fecal 416 ug/g Critically high 0-120 [facility] Comment on above: Result Comment: Conc entration Interpretation Follow-Up <16 - 50 ug/g Normal None >50 -120 ug/g Borderline Re-evaluate in 4-6 weeks >120 ug/g Abnormal Repeat as clinically indicated Performed By: #### U RCX #### [facility] [address] [place] [address] Dr. Anthony Bonilla QUANTIFERON TB GOLD PLUSon 0 02-19-2022 QuantiFERON Criteria Comment Normal [facility] Comment on above: Result Comment: Butch tiFERON-TB Gold Plus is a qualitative indirect test for M tuberculosis infection (including disease) and is intended for use in conjunction with risk assessment, radiography, and other medical and diagnostic evaluations. The QuantiFERON-TB Gold Plus result is determined by subtracting the Nil value from either TB antigen (Ag) value. The Mitogen tube serves as a control for the test. Performed By: #### U RCX #### [facility] [address] [place] [address] Dr. Anthony Bonilla QuantiFERON Incubation Incubation performed. Normal [facility] Comment on above: Performed By: #### U RCX #### [facility] [address] [place] [address] Dr. Anthony Bonilla QuantiFERON Mitogen Value >10.00 Normal [facility] Comment on above: Performed By: #### U RCX #### [facility] [address] [place] [address] Dr. Anthony Bonilla QuantiFERON Nil Value 0.07 IU/mL Normal [facility] Comment on above: Performed By: #### U RCX #### [facility] [address] [place] [address] Dr. Anthony Bonilla QuantiFERON TB1 Ag Value 0.08 IU/mL Normal [facility] Comment on above: Performed By: #### U RCX #### [facility] [address] [place] [address] Dr. Anthony Bonilla QuantiFERON TB2 Ag Value 0.07 IU/mL Normal [facility] Comment on above: Performed By: #### U RCX #### [facility] [address] [place] [address] Dr. Anthony Bonilla QuantiFERON-TB Gold Plus Negative Normal Negative [facility] Comment on above: Result Comment: No r esponse to M tuberculosis antigens detected. Infection with M tuberculosis is unlikely, but high risk individuals should be considered for additional testing (ATS/IDSA/CDC Clinical Practice Guidelines, 2017). The reference range is an Antigen minus Nil result of <0.35 IU/mL. Chemiluminescence immunoassay methodology Performed By: #### U RCX #### [facility] [address] [place] [address] Dr. Anthony Bonilla HEP B SURFACE ANTIGEN SCREEN on 02-18-2022 HBsAg Screen Negative Normal Negative [facility] Comment on above: Performed By: #### U RCX #### [facility] [address] [place] [address] Dr. Anthony Bonilla HEPATITIS B CORE, IgMon 02-08 Hep B Core Ab, IgM Negative Normal Negative [facility] Comment on above: Performed By: #### U RCX #### [facility] [address] [place] [address] Dr. Anthony Bonilla HEPATITIS B SURFACE ANTIBODY , QUANTon 02-18-2022 Hepatitis B Surf AB Quant <3.1 Critically low Immunity>9 .9 [facility] Comment on above: Result Comment: Stat us of Immunity Anti-HBs Level Inconsistent with Immunity 0.0 - 9.9 Consistent with Immunity >9.9 Performed By: #### C BC #### [facility] [address] [place] [address] Dr. Anthony Bonilla CBC AUTO DIFFon 02-17-2022 BASO # 0.0 103/ul Normal 0.0-0.1 [facility] Comment on above: Performed By: #### U RCX #### [facility] [address] [place] [address] Dr. Anthony Bonilla Basophils/100 WBC (Bld) 0.4 % Normal 0.2-2.0 [facility] Comment on above: Performed By: #### U RCX #### [facility] [address] [place] [address] Dr. Anthony Bonilla EO # 0.0 103/ul Normal 0.0-0.7 [facility] Comment on above: Performed By: #### U RCX #### [facility] [address] [place] [address] Dr. Anthony Bonilla Eosinophils/100 WBC (Bld) 0.5 % Critically low 0.9-7.0 [facility] Comment on above: Performed By: #### U RCX #### [facility] [address] [place] [address] Dr. Anthony Bonilla Erythrocyte distribution width (RBC) [Ratio] 14.7 % Normal 11.0-15.0 [facility] Comment on above: Performed By: #### U RCX #### [facility] [address] [place] [address] Dr. Anthony Bonilla Hematocrit (Bld) [Volume fraction] 33.2 % Critically low 36.0-48.0 [facility] Comment on above: Performed By: #### U RCX #### [facility] [address] [place] [address] Dr. Anthony Bonilla Hemoglobin (Bld) [Mass/Vol] 11.0 g/dL Critically low 12.0-16.0 [facility] Comment on above: Performed By: #### U RCX #### [facility] [address] [place] [address] Dr. Anthony Bonilla IG # 0.02 10e3/ul Normal 0.00-0.03 [facility] Comment on above: Performed By: #### U RCX #### [facility] [address] [place] [address] Dr. Anthony Bonilla IG % 0.2 % Normal 0.0-0.5 [facility] Comment on above: Performed By: #### U RCX #### [facility] [address] [place] [address] Dr. Anthony Bonilla LYMPH # 1.3 103/ul Normal 1.2-3.8 [facility] Comment on above: Performed By: #### U RCX #### [facility] [address] [place] [address] Dr. Anthony Bonilla Lymphocytes/100 WBC (Bld) 14.8 % Critically low 20.5-60.0 [facility] Comment on above: Performed By: #### U RCX #### [facility] [address] [place] [address] Dr. Anthony Bonilla MANUAL DIFF REQ NO Normal [facility] Comment on above: Performed By: #### U RCX #### [facility] [address] [place] [address] Dr. Anthony Bonilla MCH (RBC) [Entitic mass] 29.0 pg Normal 26.7-34.0 [facility] Comment on above: Performed By: #### U RCX #### [facility] [address] [place] [address] Dr. Anthony Bonilla MCHC (RBC) [Mass/Vol] 33.1 g/dL Normal 29.9-35.2 [facility] Comment on above: Performed By: #### U RCX #### [facility] [address] [place] [address] Dr. Anthony Bonilla MCV (RBC) [Entitic vol] 87.6 fL Normal 81.0-99.0 [facility] Comment on above: Performed By: #### U RCX #### [facility] [address] [place] [address] Dr. Anthony Bonilla MONO # 0.8 103/ul Normal 0.3-0.8 [facility] Comment on above: Performed By: #### U RCX #### [facility] [address] [place] [address] Dr. Anthony Bonilla Monocytes/100 WBC (Bld) 9.6 % Normal 1.7-12.0 [facility] Comment on above: Performed By: #### U RCX #### [facility] [address] [place] [address] Dr. Anthony Bonilla NEUT # 6.3 103/ul Normal 1.4-6.5 [facility] Comment on above: Performed By: #### U RCX #### [facility] [address] [place] [address] Dr. Anthony Bonilla Neutrophils/100 WBC (Bld) 74.5 % Normal 43.0-75.0 [facility] Comment on above: Performed By: #### U RCX #### [facility] [address] [place] [address] Dr. Anthony Bonilla Platelet mean volume (Bld) [Entitic vol] 9.8 fL Normal 9.5-13.5 [facility] Comment on above: Performed By: #### U RCX #### [facility] [address] [place] [address] Dr. Anthony Bonilla PLT 318 103/ul Normal 150-450 [facility] Comment on above: Performed By: #### U RCX #### [facility] [address] [place] [address] Dr. Anthony Bonilla RBC 3.79 106/ul Critically low 4.20-5.40 [facility] Comment on above: Performed By: #### U RCX #### [facility] [address] [place] [address] Dr. Anthony Bonilla WBC 8.5 103/ul Normal 4.0-11.0 [facility] Comment on above: Performed By: #### U RCX #### [facility] [address] [place] [address] Dr. Anthony Bonilla PROF 14(COMP METB)on 023 Albumin [Mass/Vol] 3.6 g/dL Normal 3.4-5.0 [facility] Comment on above: Performed By: #### U RCX #### [facility] [address] [place] [address] Dr. Anthony Bonilla Albumin/Globulin [Mass ratio] 1.2 {ratio} Normal [facility] Comment on above: Performed By: #### U RCX #### [facility] [address] [place] [address] Dr. Anthony Bonilla ALP [Catalytic activity/Vol] 27 U/L Critically low 46-116 [facility] Comment on above: Performed By: #### U RCX #### [facility] [address] [place] [address] Dr. Anthony Bonilla ALT [Catalytic activity/Vol] 21 U/L Normal 14-59 [facility] Comment on above: Performed By: #### U RCX #### [facility] [address] [place] [address] Dr. Anthony Bonilla Anion gap [Moles/Vol] 13.5 mmol/L Normal [facility] Comment on above: Performed By: #### U RCX #### [facility] [address] [address] [address] Anthony Bonilla AST [Catalytic activity/Vol] 19 U/L Normal 15-37 [facility] Comment on above: Performed By: #### U RCX #### [facility] [address] [address] [address] Anthony Bonilla Bilirubin [Mass/Vol] 0.6 mg/dL Normal 0.2-1.0 [facility] Comment on above: Performed By: #### U RCX #### [facility] [address] [place] [address] Dr. Anthony Bonilla Calcium [Mass/Vol] 9.2 mg/dL Normal 8.5-10.1 [facility] Comment on above: Performed By: #### U RCX #### [facility] [address] [address] [address] Anthony Bonilla Chloride [Moles/Vol] 104 mmol/L Normal 98-107 [facility] Comment on above: Performed By: #### U RCX #### [facility] [address] [place] [address] Dr. Anthony Bonilla CO2 [Moles/Vol] 28.9 mmol/L Normal 21.0-32.0 [facility] Comment on above: Performed By: #### U RCX #### [facility] [address] [address] [address] Anthony Bonilla Creatinine [Mass/Vol] 1.21 mg/dL Critically high 0.55-1.02 [facility] Comment on above: Performed By: #### U RCX #### [facility] [address] [place] [address] Dr. Anthony Bonilla EGFR-AF TURKS AND [place] 51 mL/min/1.73m2 Critically low >=60 [facility] Comment on above: Performed By: #### U RCX #### [facility] [address] [place] [address] Dr. Anthony Bonilla EGFR-NON AF TURKS AND [place] 42 mL/min/1.73m2 Critically low >=60 [facility] Comment on above: Performed By: #### U RCX #### [facility] [address] [place] [address] Dr. Anthony Bonilla Globulin (S) [Mass/Vol] 3.1 g/dL Normal [facility] Comment on above: Performed By: #### U RCX #### [facility] [address] [address] [address] Anthony Bonilla Glucose [Mass/Vol] 107 mg/dL Critically high 74-106 [facility] Comment on above: Performed By: #### U RCX #### [facility] [address] [place] [address] Dr. Anthony Bonilla Potassium [Moles/Vol] 3.4 mmol/L Critically low 3.5-5.1 [facility] Comment on above: Performed By: #### U RCX #### [facility] [address] [address] [address] Anthony Bonilla Protein [Mass/Vol] 6.7 g/dL Normal 6.4-8.2 The [facility] Comment on above: Performed By: #### U RCX #### [facility] [address] [place] [address] Dr. Anthony Bonilla Sodium [Moles/Vol] 143 mmol/L Normal 136-145 [facility] Comment on above: Performed By: #### U RCX #### [facility] [address] [address] [address] Anthony Bonilla Urea nitrogen [Mass/Vol] 22.0 mg/dL Critically high 7.0-18.0 [facility] Comment on above: Performed By: #### U RCX #### [facility] [address] [place] [address] Dr. Anthony Bonilla Urea nitrogen/Creatinine [Mass ratio] 18.2 mg/mg Normal [facility] Comment on above: Performed By: #### U RCX #### [facility] [address] [place] [address] Dr. Anthony Bonilla Automated erythrocytes count in urine sediment (number/area)Ordered By: Gypsy Mcmahon on 02-16-2022 RBC Auto (Urine sed) [#/Area] 0-1 [HPF] 0-4 [facility] Automated leukocytes count i n urine sediment (number/area)Ordered By: Gypsy Mcmahon on 02-16-2022 WBC Auto (Urine sed) [#/Area] 20-49 [HPF] 0-4 [facility] Bilirubin Test strip Ql (U)O rdered By: Gypsy Mcmahon on 02-16-2022 Bilirubin Ql (U) Negative Negative [facility] Color Auto (U)Ordered By: Nicole Mcmahon on 02-16-2022 Color (U) Yellow Yellow [facility] Dipstick and Microscopicon 0 02-16-2022 Appearance (U) Cloudy Critically abnormal Clear [facility] Comment on above: Order Comment: Name Collection Type:: Voided Performed By: #### A DDONUAPLUS, CUU #### [facility] [address] [place] [address] [place] Bacteria,Urine 2+ High None Seen [facility] Comment on above: Order Comment: Name Collection Type:: Voided Performed By: #### A DDONUAPLUS, CUU #### [facility] [address] [id number] [place] Bilirubin,Urine Negative Normal Negative [facility] Comment on above: Order Comment: Name Collection Type:: Voided Performed By: #### A DDONUAPLUS, CUU #### [facility] [address] [id number] [place] Color (U) Yellow Normal Yellow [facility] Comment on above: Order Comment: Name Collection Type:: Voided Performed By: #### A DDONUAPLUS, CUU #### [facility] [address] [id number] [place] Glucose Ql (U) Normal Normal Normal [facility] Comment on above: Order Comment: Name Collection Type:: Voided Performed By: #### A DDONUAPLUS, CUU #### [facility] [address] [id number] [place] Hyaline Casts,Urine 9-19 High 0-8 [facility] Comment on above: Order Comment: Name Collection Type:: Voided Result Comment: PERF ORMED BY: [place] [address] PATHOLOGIST BOARDING SPECIALIST TIEN VELASQUEZ M.D. Performed By: #### A DDONUAPLUS, CUU #### [place] [address] [place] Ketones Ql (U) Trace High Negative [facility] Comment on above: Order Comment: Name Collection Type:: Voided Performed By: #### A DDONUAPLUS, CUU #### [place] [address] [place] Leukocyte esterase Test strip Ql (U) 2+ High Negative [facility] Comment on above: Order Comment: Name Collection Type:: Voided Performed By: #### A DDONUAPLUS, CUU #### [place] [address] [place] Nitrite,Urine Positive High Negative [facility] Comment on above: Order Comment: Name Collection Type:: Voided Performed By: #### A DDONUAPLUS, CUU #### [place] [address] [place] Occult Blood,Urine Negative Normal Negative [facility] Comment on above: Order Comment: Name Collection Type:: Voided Result Comment: PERF ORMED BY: [place] [address] PATHOLOGIST BOARDING SPECIALIST TIEN VELASQUEZ M.D. Performed By: #### A DDONUAPLUS, CUU #### [place] [address] [place] pH (U) 5.5 [pH] Normal 5.0-9.0 [facility] Comment on above: Order Comment: Name Collection Type:: Voided Performed By: #### A DDONUAPLUS, CUU #### [place] [address] [place] Protein,Urine Negative Normal Negative [facility] Comment on above: Order Comment: Name Collection Type:: Voided Performed By: #### A DDONUAPLUS, CUU #### [address] RBC LM.HPF (Urine sed) [#/Area] 0 /[HPF] Normal 0-4 [facility] Comment on above: Order Comment: Name Collection Type:: Voided Performed By: #### A DDONUAPLUS, CUU #### [address] Specificy [place],Urine 1.018 Normal 1.001-1.03 0 [facility] Comment on above: Order Comment: Name Collection Type:: Voided Performed By: #### A DDONUAPLUS, CUU #### [address] Squamous Epithelial Cell,Urine 5-9 High 0-2 [facility] Comment on above: Order Comment: Name Collection Type:: Voided Performed By: #### A DDONUAPLUS, CUU #### [address] Urobilinogen,Urine Normal Normal Normal [facility] Comment on above: Order Comment: Name Collection Type:: Voided Performed By: #### A DDONUAPLUS, CUU #### [address] WBC,Urine 20-49 High 0-4 [facility] Comment on above: Order Comment: Name Collection Type:: Voided Performed By: #### A DDONUAPLUS, CUU #### [address] Ketones Auto test strip (U) [Mass/Vol]Ordered By: Gypsy Mcmahon on 02-16-2022 Ketones (U) [Mass/Vol] Trace Negative [facility] - UrinalysisOrder ed By: Gypsy Mcmahon on 02-16-2022 Hyaline casts LM Ql (Urine sed) 9-19 [LPF] 0-8 [facility] Nitrite Test strip Ql (U)Ord ered By: Gypsy Mcmahon on 02-16-2022 Nitrite Ql (U) Positive Negative [facility] Protein Auto test strip (U) [Mass/Vol]Ordered By: Gypsy Mcmahon on 02-16-2022 Protein (U) [Mass/Vol] Negative Negative [facility] Specific gravity Auto test s trip (U) [Rel density]Ordered By: Gypsy Mcmahon on 02-16-2022 Specific gravity (U) [Rel density] 1.018 1.001-1.03 0 [facility] Squamous epithelial cells de tection in urine sediment by light microscopyOrdered By: Gypsy Mcmahon on 02-16-2022 Epithelial cells.squamous LM Ql (Urine sed) 5-9 [HPF] 0-2 [facility] Urine Cultureon 02-16-2022 Urine Culture >100,000 [employer] Other Urine Culture <16 Susceptible [employer] Other Urine Culture <8/4 Susceptible [employer] Other Urine Culture <4 Susceptible [employer] Other Urine Culture <2 Susceptible [employer] Other Urine Culture <1 Susceptible [employer] Other Urine Culture <0.25 Susceptible [employer] Other Urine Culture <0.5 [employer] Other Urine Culture <32 [employer] Other Urine Culture <0.5/9.5 [employer] Other Bacteria identified Cx Nom (U) ORGANISM: Klebsiella variicola (O:KLEVAR) [place] Count >100,000 Aerobic JODY Charge ([id number]) SUSCEPTIBILITY ORGANISM: O:KLEVAR ANTIBIOTIC INTERPRETATION JODY Amikacin S <16 Amoxacillin/K Clavulanate S <8 Ampicillin/Sulbactam S <4 Aztreonam S <4 Cefazolin S <2 Cefepime S <2 Ceftazidime S <1 Ceftriaxone S <1 Cefuroxime S <4 Ciprofloxacin S <0.25 Ertapenem S <0.5 Gentamicin S <2 Levofloxacin S <0.5 Meropenem S <1 Nitrofurantoin S <32 Piperacillin/Tazobactam S <8 Tetracycline S <4 Tigecycline S <2 Tobramycin S <2 Trimethoprim/Sulfamethoxazol e S <0.5 S = SUSCEPTIBLE I = INTERMEDIATE R = RESISTANT BLANK = DATA NOT AVAILABLE, OR DRUG NOT ADVISABLE OR TESTED R* = RESISTANCE DUE TO EXTENDED SPECTRUM BETA-LACTAMASES ESBL = EXTENDED SPECTRUM BETA-LACTAMASE TFG = THYMIDINE-DEPENDENT STRAIN ELÍAS = BETA-LACTAMASE POSITIVE IB = INDUCIBLE BETA-LACTAMASE. APPEARS IN PLACE OF 'S' WITH SPECIES KNOWN TO POSSESS INDUCIBLE BETA-LACTAMASES. POTENTIALLY THEY MAY BECOME RESISTANT TO ALL B-LACTAM DRUGS. PERFORMED BY: [place] [address] PATHOLOGIST BOARDING SPECIALIST TIEN VELASQUEZ M.D. [facility] Comment on above: Performed By: #### A DDONUAPLUS, CUU #### [address] Urine bacteria detection by automated methodOrdered By: Gypsy Mcmahon on 02-16-2022 Bacteria Auto Ql (U) 2+ None Seen [facility] Urine clarity by refractomet ry automatedOrdered By: Gypsy Mcmahon on 02-16-2022 Clarity Refractometry automated (U) Cloudy Clear [facility] Urine culture routineOrdered By: Gypsy Mcmahon on 02-16-2022 Bacteria identified Cx Nom (U) Klebsiella variicola [facility] Urine glucose measurement by automated test strip (mass/volume)Ordered By: Gypsy Mcmahon on 02-16-2022 Glucose Auto test strip (U) [Mass/Vol] Normal mg/dL Normal [facility] Urine hemoglobin detection b y automated test stripOrdered By: Gypsy Mcmahon on 02-16-2022 Hemoglobin Auto test strip Ql (U) Negative Negative [facility] Urine leukocyte esterase det ection by automated test stripOrdered By: Gypsy Mcmahon on 02-16-2022 Leukocyte esterase Auto test strip Ql (U) 2+ Negative [facility] Urobilinogen Auto test strip (U) [Mass/Vol]Ordered By: Gypsy Mcmahon on 02-16-2022 Urobilinogen (U) [Mass/Vol] Normal mg/dL Normal [facility] pH Auto test strip (U)Ordere d By: Gypsy Mcmahon on 02-16-2022 pH (U) 5.5 [pH] 5.0-9.0 [facility] CBC AUTO DIFFon 01-15-2022 BASO # 0.0 103/ul Normal 0.0-0.1 [facility] Comment on above: Performed By: #### C BC #### [facility] [address] [address] [address] Anthony Bonilla Basophils/100 WBC (Bld) 0.5 % Normal 0.2-2.0 [facility] Comment on above: Performed By: #### C BC #### [facility] [address] [address] [address] Anthony Bonilla EO # 0.1 103/ul Normal 0.0-0.7 [facility] Comment on above: Performed By: #### C BC #### [facility] [address] [address] [address] Anthony Bonilla Eosinophils/100 WBC (Bld) 0.9 % Normal 0.9-7.0 [facility] Comment on above: Performed By: #### C BC #### [facility] [address] [address] [address] Anthony Bonilla Erythrocyte distribution width (RBC) [Ratio] 14.8 % Normal 11.0-15.0 [facility] Comment on above: Performed By: #### C BC #### [facility] [address] [address] [address] Anthony Bonilla Hematocrit (Bld) [Volume fraction] 30.3 % Critically low 36.0-48.0 [facility] Comment on above: Performed By: #### C BC #### [facility] [address] [address] [address] Anthony Bonilla Hemoglobin (Bld) [Mass/Vol] 9.8 g/dL Critically low 12.0-16.0 [facility] Comment on above: Performed By: #### C BC #### [facility] [address] [place] [address] Dr. Anthony Bonilla IG # 0.03 10e3/ul Normal 0.00-0.03 [facility] Comment on above: Performed By: #### C BC #### [facility] [address] [place] [address] Dr. Anthony Bonilla IG % 0.3 % Normal 0.0-0.5 [facility] Comment on above: Performed By: #### C BC #### [facility] [address] [place] [address] Dr. Anthony Bonilla LYMPH # 1.4 103/ul Normal 1.2-3.8 [facility] Comment on above: Performed By: #### C BC #### [facility] [address] [place] [address] Dr. Anthony Bonilla Lymphocytes/100 WBC (Bld) 15.7 % Critically low 20.5-60.0 [facility] Comment on above: Performed By: #### C BC #### [facility] [address] [place] [address] Dr. Anthony Bonilla MANUAL DIFF REQ NO Normal [facility] Comment on above: Performed By: #### C BC #### [facility] [address] [place] [address] Dr. Anthony Bonilla MCH (RBC) [Entitic mass] 30.0 pg Normal 26.7-34.0 [facility] Comment on above: Performed By: #### C BC #### [facility] [address] [place] [address] Dr. Anthony Bonilla MCHC (RBC) [Mass/Vol] 32.3 g/dL Normal 29.9-35.2 [facility] Comment on above: Performed By: #### C BC #### [facility] [address] [place] [address] Dr. Anthony Bonilla MCV (RBC) [Entitic vol] 92.7 fL Normal 81.0-99.0 [facility] Comment on above: Performed By: #### C BC #### [facility] [address] [address] [address] Anthony Bonilla MONO # 1.1 103/ul Critically high 0.3-0.8 [facility] Comment on above: Performed By: #### C BC #### [facility] [address] [address] [address] Anthony Bonilla Monocytes/100 WBC (Bld) 12.0 % Normal 1.7-12.0 [facility] Comment on above: Performed By: #### C BC #### [facility] [address] [address] [address] Anthony Bonilla NEUT # 6.2 103/ul Normal 1.4-6.5 [facility] Comment on above: Performed By: #### C BC #### [facility] [address] [address] [address] Anthony Bonilla Neutrophils/100 WBC (Bld) 70.6 % Normal 43.0-75.0 [facility] Comment on above: Performed By: #### C BC #### [facility] [address] [address] [address] Anthony Bonilla Platelet mean volume (Bld) [Entitic vol] 9.8 fL Normal 9.5-13.5 [facility] Comment on above: Performed By: #### C BC #### [facility] [address] [address] [address] Anthony Bonilla PLT 305 103/ul Normal 150-450 [facility] Comment on above: Performed By: #### C BC #### [facility] [address] [address] [address] Anthony Bonilla RBC 3.27 106/ul Critically low 4.20-5.40 [facility] Comment on above: Performed By: #### C BC #### [facility] [address] [address] [address] Anthony Bonilla WBC 8.7 103/ul Normal 4.0-11.0 [facility] Comment on above: Performed By: #### C BC #### [facility] [address] [address] [address] Anthony Bonilla PROF CHEM 8 (BAS METB)on Anion gap [Moles/Vol] 12.2 mmol/L Normal [facility] Comment on above: Performed By: #### U RCX #### [facility] [address] [address] [address] Anthony Bonilla Calcium [Mass/Vol] 9.1 mg/dL Normal 8.5-10.1 [facility] Comment on above: Performed By: #### U RCX #### [facility] [address] [address] [address] Anthony Bonilla Chloride [Moles/Vol] 104 mmol/L Normal 98-107 [facility] Comment on above: Performed By: #### U RCX #### [facility] [address] [place] [address] Dr. Anthony Bonilla CO2 [Moles/Vol] 24.4 mmol/L Normal 21.0-32.0 [facility] Comment on above: Performed By: #### U RCX #### [facility] [address] [address] [address] Anthony Bonilla Creatinine [Mass/Vol] 1.20 mg/dL Critically high 0.55-1.02 [facility] Comment on above: Performed By: #### U RCX #### [facility] [address] [address] [address] Anthony Bonilla EGFR-AF TURKS AND [place]ER 52 mL/min/1.73m2 Critically low >=60 [facility] Comment on above: Performed By: #### U RCX #### [facility] [address] [address] [address] Anthony Bonilla EGFR-NON AF TURKS AND [place]ER 43 mL/min/1.73m2 Critically low >=60 [facility] Comment on above: Performed By: #### U RCX #### [facility] [address] [address] [address] Anthony Bonilla Glucose [Mass/Vol] 81 mg/dL Normal 74-106 The [facility] Comment on above: Performed By: #### U RCX #### [facility] [address] [address] [address] Anthony Bonilla Potassium [Moles/Vol] 3.6 mmol/L Normal 3.5-5.1 [facility] Comment on above: Performed By: #### U RCX #### [facility] [address] [address] [address] Anthony Bonilla Sodium [Moles/Vol] 137 mmol/L Normal 136-145 [facility] Comment on above: Performed By: #### U RCX #### [facility] [address] [address] [address] Anthony Bonilla Urea nitrogen [Mass/Vol] 21.0 mg/dL Critically high 7.0-18.0 [facility] Comment on above: Performed By: #### U RCX #### [facility] [address] [address] [address] Anthony Bonilla Urea nitrogen/Creatinine [Mass ratio] 17.5 mg/mg Normal [facility] Comment on above: Performed By: #### U RCX #### [facility] [address] [place] [address] Dr. Anthony Bonilla CULTURE URINEon 12-29-2021 CULTURE URINE Isolate 1 Citrobacter braakii >100,000 cfu/mL of Isolate 2 Enterobacter cloacae complex >100,000 cfu/mL of ORGANISM 1 Citrobacter braakii ANTIBIOTIC M.I.C RX STATUS Piperacillin/Tazobactam 32 I F Cefazolin >=64 R F Ceftazidime >=64 R F Ceftriaxone >=64 R F Ertapenem <=0.5 S F Imipenem <=0.25 S F Amikacin <=2 S F Gentamicin <=1 S F Tobramycin <=1 S F Ciprofloxacin <=0.25 S F Levofloxacin <=0.12 S F Nitrofurantoin <=16 S F Trimethoprim/Sulfamethoxazol e <=20 S F ORGANISM 2 Enterobacter cloacae complex ANTIBIOTIC M.I.C RX STATUS Piperacillin/Tazobactam <=4 S F Cefazolin >=64 R F Ceftazidime <=1 S F Ceftriaxone <=1 S F Ertapenem <=0.5 S F Imipenem <=0.25 S F Amikacin <=2 S F Gentamicin <=1 S F Tobramycin <=1 S F Ciprofloxacin <=0.25 S F Levofloxacin <=0.12 S F Nitrofurantoin 32 S F Trimethoprim/Sulfamethoxazol e <=20 S F Normal [facility] Comment on above: Performed By: #### U RCX #### [facility] [address] [place] [address] Dr. Anthony Bonilla ER URINE PROFILEon 2 Bilirubin Ql (U) SMALL Abnormal NEGATIVE [facility] Comment on above: Performed By: #### C BC #### [facility] [address] [place] [address] Dr. Anhtony Bonilla Clarity (U) SL CLOUDY Abnormal CLEAR [facility] Comment on above: Performed By: #### C BC #### [facility] [address] [place] [address] Dr. Anthony Bonilla Color (U) YELLOW Normal YELLOW [facility] Comment on above: Performed By: #### C BC #### [facility] [address] [place] [address] Dr. Anthony Bonilla ERUAHFady A micrscopic examina tion will be performed if indicated. Normal [facility] Comment on above: Performed By: #### C BC #### [facility] [address] [place] [address] Dr. Anthony Bonilla Glucose Ql (U) Negative Normal NEGATIVE [facility] Comment on above: Performed By: #### C BC #### [facility] [address] [place] [address] Dr. Anthony Bonilla Hemoglobin Ql (U) Negative Normal NEGATIVE [facility] Comment on above: Performed By: #### C BC #### [facility] [address] [place] [address] Dr. Anthony Bonilla Ketones Ql (U) TRACE Abnormal NEGATIVE [facility] Comment on above: Performed By: #### C BC #### [facility] [address] [place] [address] Dr. Anthony Bonilla LEUKOCYTES MODERATE Abnormal NEGATIVE [facility] Comment on above: Performed By: #### C BC #### [facility] [address] [place] [address] Dr. Anthony Bonilla Nitrite Ql (U) Positive Abnormal NEGATIVE [facility] Comment on above: Performed By: #### C BC #### [facility] [address] [place] [address] Dr. Anthony Bonilla pH (U) 7.5 [pH] Normal 5-9 [facility] Comment on above: Performed By: #### C BC #### [facility] [address] [place] [address] Dr. Anthony Bonilla Protein (U) [Mass/Vol] 30 mg/dL Abnormal NEGATIVE/ TRACE [facility] Comment on above: Performed By: #### C BC #### [facility] [address] [place] [address] Dr. Anthony Bonilla SPEC GRAVITY 1.020 Normal 1.005-<=1. 025 [facility] Comment on above: Performed By: #### C BC #### [facility] [address] [place] [address] Dr. Anthony Bonilla UR MICRO IND INDICATED Normal [facility] Comment on above: Performed By: #### C BC #### [facility] [address] [place] [address] Dr. Anthony Bonilla Urobilinogen Qn (U) 0.2 {Gen'U}/dL Normal 0.2 - 1. 0 [facility] Comment on above: Performed By: #### C BC #### [facility] [address] [place] [address] Dr. Anthony Bonilla URINE MICROSCOPIC ONLYon BACTERIA TRACE Abnormal NONE SEEN [facility] Comment on above: Performed By: #### C BC #### [facility] [address] [place] [address] Dr. Anthony Bonilla Bacteria identified Cx Nom (U) INDICATED Normal [facility] Comment on above: Performed By: #### C BC #### [facility] [address] [place] [address] Dr. Anthony Bonilla CAST NONE SEEN Normal NONE SEEN [facility] Comment on above: Performed By: #### C BC #### [facility] [address] [place] [address] Dr. Anthony Bonilla Crystals LM Nom (Urine sed) NONE SEEN Normal NONE SEEN [facility] Comment on above: Performed By: #### C BC #### [facility] [address] [place] [address] Dr. Anthony Bonilla Epithelial cells LM Ql (Urine sed) FEW Abnormal NONE SEEN /RARE [facility] Comment on above: Performed By: #### C BC #### [facility] [address] [place] [address] Dr. Anthony Bonilla MUCOUS NONE SEEN Normal NONE SEEN [facility] Comment on above: Performed By: #### C BC #### [facility] [address] [place] [address] Dr. Anthony Bonilla RBC 0-2 Normal 0-2 [facility] Comment on above: Performed By: #### C BC #### [facility] [address] [place] [address] Dr. Anthony Bonilla WBC 5-10 Abnormal NONE SEEN [facility] Comment on above: Performed By: #### C BC #### [facility] [address] [place] [address] Dr. Anthony Bonilla PRBC LEUKOREDUCEDon 11-20-19 22 PRBC LEUKOREDUCED Cross Match Result Compatible Unit Blood Type A Pos Unit Number [id number] Status Information Transfused Product ID Red Blood Cells Product Code [id number] Normal [facility] Comment on above: Performed By: #### P RBC #### [facility] [address] [place] [address] Dr. Anthony Bonilla CBC AUTO DIFFon 11-10-2021 BASO # 0.0 103/ul Normal 0.0-0.1 [facility] Comment on above: Performed By: #### C BC #### [facility] [address] [place] [address] Dr. Anthony Bonilla Basophils/100 WBC (Bld) 0.7 % Normal 0.2-2.0 [facility] Comment on above: Performed By: #### C BC #### [facility] [address] [address] [address] Anthony Bonilla EO # 0.2 103/ul Normal 0.0-0.7 [facility] Comment on above: Performed By: #### C BC #### [facility] [address] [address] [address] Anthony Bonilla Eosinophils/100 WBC (Bld) 2.7 % Normal 0.9-7.0 [facility] Comment on above: Performed By: #### C BC #### [facility] [address] [address] [address] Anthony Bonilla Erythrocyte distribution width (RBC) [Ratio] 16.3 % Critically high 11.0-15.0 [facility] Comment on above: Performed By: #### C BC #### [facility] [address] [place] [address] Dr. Anthony Bonilla Hematocrit (Bld) [Volume fraction] 29.0 % Critically low 36.0-48.0 [facility] Comment on above: Performed By: #### C BC #### [facility] [address] [address] [address] Anthony Bonilla Hemoglobin (Bld) [Mass/Vol] 9.4 g/dL Critically low 12.0-16.0 [facility] Comment on above: Performed By: #### C BC #### [facility] [address] [address] [address] Anthony Bonilla IG # 0.04 10e3/ul Critically high 0.00-0.03 [facility] Comment on above: Performed By: #### C BC #### [facility] [address] [address] [address] Anthony Bonilla IG % 0.7 % Critically high 0.0-0.5 [facility] Comment on above: Performed By: #### C BC #### [facility] [address] [address] [address] Anthony Bonilla LYMPH # 1.2 103/ul Normal 1.2-3.8 [facility] Comment on above: Performed By: #### C BC #### [facility] [address] [place] [address] Dr. Anthony Bonilla Lymphocytes/100 WBC (Bld) 21.5 % Normal 20.5-60.0 [facility] Comment on above: Performed By: #### C BC #### [facility] [address] [place] [address] Dr. Anthony Bonilla MANUAL DIFF REQ NO Normal [facility] Comment on above: Performed By: #### C BC #### [facility] [address] [place] [address] Dr. Anthony Bonilla MCH (RBC) [Entitic mass] 32.3 pg Normal 26.7-34.0 [facility] Comment on above: Performed By: #### C BC #### [facility] [address] [place] [address] Dr. Anthony Bonilla MCHC (RBC) [Mass/Vol] 32.4 g/dL Normal 29.9-35.2 [facility] Comment on above: Performed By: #### C BC #### [facility] [address] [place] [address] Dr. Anthony Bonilla MCV (RBC) [Entitic vol] 99.7 fL Critically high 81.0-99.0 [facility] Comment on above: Performed By: #### C BC #### [facility] [address] [place] [address] Dr. Anthony Bonilla MONO # 0.7 103/ul Normal 0.3-0.8 [facility] Comment on above: Performed By: #### C BC #### [facility] [address] [place] [address] Dr. Anthony Bonilla Monocytes/100 WBC (Bld) 12.6 % Critically high 1.7-12.0 [facility] Comment on above: Performed By: #### C BC #### [facility] [address] [place] [address] Dr. Anthony Bonilla NEUT # 3.4 103/ul Normal 1.4-6.5 [facility] Comment on above: Performed By: #### C BC #### [facility] [address] [address] [address] Anthony Bonilla Neutrophils/100 WBC (Bld) 61.8 % Normal 43.0-75.0 [facility] Comment on above: Performed By: #### C BC #### [facility] [address] [address] [address] Anthony Bonilla Platelet mean volume (Bld) [Entitic vol] 9.0 fL Critically low 9.5-13.5 [facility] Comment on above: Performed By: #### C BC #### [facility] [address] [address] [address] Anthony Bonilla PLT 429 103/ul Normal 150-450 [facility] Comment on above: Performed By: #### C BC #### [facility] [address] [place] [address] Dr. Anthony Bonilla RBC 2.91 106/ul Critically low 4.20-5.40 [facility] Comment on above: Performed By: #### C BC #### [facility] [address] [place] [address] Dr. Anthony Bonilla WBC 5.5 103/ul Normal 4.0-11.0 [facility] Comment on above: Performed By: #### C BC #### [facility] [address] [place] [address] Dr. Anthony Bonilla PROF CHEM 8 (BAS METB)on Anion gap [Moles/Vol] 11.0 mmol/L Normal [facility] Comment on above: Performed By: #### B MP #### [facility] [address] [place] [address] Dr. Anthony Bonilla Calcium [Mass/Vol] 9.2 mg/dL Normal 8.5-10.1 [facility] Comment on above: Performed By: #### B MP #### [facility] [address] [place] [address] Dr. Anthony Bonilla Chloride [Moles/Vol] 107 mmol/L Normal 98-107 [facility] Comment on above: Performed By: #### B MP #### [facility] [address] [address] [address] Anthony Bonilla CO2 [Moles/Vol] 27.4 mmol/L Normal 21.0-32.0 [facility] Comment on above: Performed By: #### B MP #### [facility] [address] [address] [address] Anthony Bonilla Creatinine [Mass/Vol] 1.12 mg/dL Critically high 0.55-1.02 [facility] Comment on above: Performed By: #### B MP #### [facility] [address] [address] [address] Anthony Bonilla EGFR-AF TURKS AND [place] ISLANDER 56 mL/min/1.73m2 Critically low >=60 [facility] Comment on above: Performed By: #### B MP #### [facility] [address] [address] [address] Anthony Bonilla EGFR-NON AF TURKS AND [place]ER 46 mL/min/1.73m2 Critically low >=60 [facility] Comment on above: Performed By: #### B MP #### [facility] [address] [address] [address] Anthony Bonilla Glucose [Mass/Vol] 89 mg/dL Normal 74-106 The [facility] Comment on above: Performed By: #### B MP #### [facility] [address] [address] [address] Anthony Bonilla Potassium [Moles/Vol] 4.4 mmol/L Normal 3.5-5.1 [facility] Comment on above: Performed By: #### B MP #### [facility] [address] [address] [address] Anthony Bonilla Sodium [Moles/Vol] 141 mmol/L Normal 136-145 The [facility] Comment on above: Performed By: #### B MP #### [facility] [address] [address] [address] Anthony Bonilla Urea nitrogen [Mass/Vol] 18.0 mg/dL Normal 7.0-18.0 [facility] Comment on above: Performed By: #### B MP #### [facility] [address] [address] [address] Anthony Bonilla Urea nitrogen/Creatinine [Mass ratio] 16.1 mg/mg Normal [facility] Comment on above: Performed By: #### B MP #### [facility] [address] [place] [address] Dr. Anthony Bonilla CBC AUTO DIFFon 11-04-2021 BASO # 0.0 103/ul Normal 0.0-0.1 [facility] Comment on above: Performed By: #### C BC #### [facility] [address] [place] [address] Dr. Anthony Bonilla Basophils/100 WBC (Bld) 0.2 % Normal 0.2-2.0 [facility] Comment on above: Performed By: #### C BC #### [facility] [address] [place] [address] Dr. Anthony Bonilla EO # 0.1 103/ul Normal 0.0-0.7 [facility] Comment on above: Performed By: #### C BC #### [facility] [address] [place] [address] Dr. Anthony Bonilla Eosinophils/100 WBC (Bld) 0.8 % Critically low 0.9-7.0 [facility] Comment on above: Performed By: #### C BC #### [facility] [address] [place] [address] Dr. Anthony Bonilla Erythrocyte distribution width (RBC) [Ratio] 16.7 % Critically high 11.0-15.0 [facility] Comment on above: Performed By: #### C BC #### [facility] [address] [place] [address] Dr. Anthony Bonilla Hematocrit (Bld) [Volume fraction] 25.6 % Critically low 36.0-48.0 [facility] Comment on above: Performed By: #### C BC #### [facility] [address] [place] [address] Dr. Anthony Bonilla Hemoglobin (Bld) [Mass/Vol] 8.5 g/dL Critically low 12.0-16.0 [facility] Comment on above: Performed By: #### C BC #### [facility] [address] [address] [address] Anthony Bonilla IG # 0.05 10e3/ul Critically high 0.00-0.03 [facility] Comment on above: Performed By: #### C BC #### [facility] [address] [place] [address] Dr. Anthony Bonilla IG % 0.5 % Normal 0.0-0.5 [facility] Comment on above: Performed By: #### C BC #### [facility] [address] [place] [address] Dr. Anthony Bonilla LYMPH # 0.6 103/ul Critically low 1.2-3.8 [facility] Comment on above: Performed By: #### C BC #### [facility] [address] [place] [address] Dr. Anthony Bonilla Lymphocytes/100 WBC (Bld) 6.2 % Critically low 20.5-60.0 [facility] Comment on above: Performed By: #### C BC #### [facility] [address] [place] [address] Dr. Anthony Bonilla MANUAL DIFF REQ NO Normal [facility] Comment on above: Performed By: #### C BC #### [facility] [address] [place] [address] Dr. Anthony Bonilla MCH (RBC) [Entitic mass] 31.6 pg Normal 26.7-34.0 [facility] Comment on above: Performed By: #### C BC #### [facility] [address] [place] [address] Dr. Anthony Bonilla MCHC (RBC) [Mass/Vol] 33.2 g/dL Normal 29.9-35.2 [facility] Comment on above: Performed By: #### C BC #### [facility] [address] [place] [address] Dr. Anthony Bonilla MCV (RBC) [Entitic vol] 95.2 fL Normal 81.0-99.0 [facility] Comment on above: Performed By: #### C BC #### [facility] [address] [address] [address] Anthony Bonilla MONO # 0.6 103/ul Normal 0.3-0.8 [facility] Comment on above: Performed By: #### C BC #### [facility] [address] [address] [address] Anthony Bonilla Monocytes/100 WBC (Bld) 6.1 % Normal 1.7-12.0 [facility] Comment on above: Performed By: #### C BC #### [facility] [address] [place] [address] Dr. Anthony Bonilla NEUT # 8.8 103/ul Critically high 1.4-6.5 [facility] Comment on above: Performed By: #### C BC #### [facility] [address] [place] [address] Dr. Anthony Bonilla Neutrophils/100 WBC (Bld) 86.2 % Critically high 43.0-75.0 [facility] Comment on above: Performed By: #### C BC #### [facility] [address] [place] [address] Dr. Anthony Bonilla Platelet mean volume (Bld) [Entitic vol] 9.8 fL Normal 9.5-13.5 [facility] Comment on above: Performed By: #### C BC #### [facility] [address] [place] [address] Dr. Anthony Bonilla PLT 156 103/ul Normal 150-450 [facility] Comment on above: Performed By: #### C BC #### [facility] [address] [place] [address] Dr. Anthony Bonilla RBC 2.69 106/ul Critically low 4.20-5.40 [facility] Comment on above: Performed By: #### C BC #### [facility] [address] [place] [address] Dr. Anthony Bonilla WBC 10.3 103/ul Normal 4.0-11.0 [facility] Comment on above: Performed By: #### C BC #### [facility] [address] [place] [address] Dr. Anthony Bonilla CULTURE URINEon 11-04-2021 CULTURE URINE Isolate 1 Klebsiella pneumoniae >100,000 cfu/mL of ORGANISM 1 Klebsiella pneumoniae ANTIBIOTIC M.I.C RX STATUS Ampicillin >=32 R F Ampicillin/Sulbactam 16 I F Piperacillin/Tazobactam 8 S F Cefazolin <=4 S F Ceftazidime <=1 S F Ceftriaxone <=1 S F Ertapenem <=0.5 S F Imipenem <=0.25 S F Amikacin <=2 S F Gentamicin <=1 S F Tobramycin <=1 S F Ciprofloxacin <=0.25 S F Levofloxacin <=0.12 S F Nitrofurantoin 32 S F Trimethoprim/Sulfamethoxazol e <=20 S F Normal [facility] Comment on above: Performed By: #### U RCX #### [facility] [address] [place] [address] Dr. Anthony Bonilla PROF CHEM 8 (BAS METB)on Anion gap [Moles/Vol] 12.9 mmol/L Normal [facility] Comment on above: Performed By: #### U RCX #### [facility] [address] [place] [address] Dr. Anthony Bonilla Calcium [Mass/Vol] 8.6 mg/dL Normal 8.5-10.1 [facility] Comment on above: Performed By: #### U RCX #### [facility] [address] [place] [address] Dr. Anthony Bonilla Chloride [Moles/Vol] 108 mmol/L Critically high 98-107 [facility] Comment on above: Performed By: #### U RCX #### [facility] [address] [place] [address] Dr. Anthony Bonilla CO2 [Moles/Vol] 23.1 mmol/L Normal 21.0-32.0 [facility] Comment on above: Performed By: #### U RCX #### [facility] [address] [place] [address] Dr. Anthony Bonilla Creatinine [Mass/Vol] 0.98 mg/dL Normal 0.55-1.02 [facility] Comment on above: Performed By: #### U RCX #### [facility] [address] [address] [address] Anthony Bonilla EGFR-AF TURKS AND CA[place] ISLANDER >60 Normal >=60 [facility] Comment on above: Performed By: #### U RCX #### [facility] [address] [address] [address] Anthony Bonilla EGFR-NON AF TURKS AND [place] ISLANDER 54 mL/min/1.73m2 Critically low >=60 [facility] Comment on above: Performed By: #### U RCX #### [facility] [address] [address] [address] Anthony Bonilla Glucose [Mass/Vol] 86 mg/dL Normal 74-106 [facility] Comment on above: Performed By: #### U RCX #### [facility] [address] [address] [address] Anthony Bonilla Potassium [Moles/Vol] 4.0 mmol/L Normal 3.5-5.1 [facility] Comment on above: Performed By: #### U RCX #### [facility] [address] [address] [address] Anthony Bonilla Sodium [Moles/Vol] 140 mmol/L Normal 136-145 [facility] Comment on above: Performed By: #### U RCX #### [facility] [address] [address] [address] Anthony Bonilla Urea nitrogen [Mass/Vol] 31.0 mg/dL Critically high 7.0-18.0 [facility] Comment on above: Performed By: #### U RCX #### [facility] [address] [address] [address] Anthony Bonilla Urea nitrogen/Creatinine [Mass ratio] 31.6 mg/mg Normal [facility] Comment on above: Performed By: #### U RCX #### [facility] [address] [address] [address] Anthony Bonilla CBC AUTO DIFFon 11-03-2021 BASO # 0.0 103/ul Normal 0.0-0.1 [facility] Comment on above: Performed By: #### C BC #### [facility] [address] [address] [address] Anthony Bonilla Basophils/100 WBC (Bld) 0.3 % Normal 0.2-2.0 [facility] Comment on above: Performed By: #### C BC #### [facility] [address] [place] [address] Dr. Anthony Bonilla EO # 0.1 103/ul Normal 0.0-0.7 [facility] Comment on above: Performed By: #### C BC #### [facility] [address] [place] [address] Dr. Anthony Bonilla Eosinophils/100 WBC (Bld) 0.6 % Critically low 0.9-7.0 [facility] Comment on above: Performed By: #### C BC #### [facility] [address] [place] [address] Dr. Anthony Bonilla Erythrocyte distribution width (RBC) [Ratio] 14.0 % Normal 11.0-15.0 [facility] Comment on above: Performed By: #### C BC #### [facility] [address] [place] [address] Dr. Anthony Bonilla Hematocrit (Bld) [Volume fraction] 23.1 % Critically low 36.0-48.0 [facility] Comment on above: Result Comment: Flui ds given Performed By: #### C BC #### [facility] [address] [place] [address] Dr. Anthony Bonilla Hemoglobin (Bld) [Mass/Vol] 7.6 g/dL Critically low 12.0-16.0 [facility] Comment on above: Performed By: #### C BC #### [facility] [address] [place] [address] Dr. Anthony Bonilla IG # 0.07 10e3/ul Critically high 0.00-0.03 [facility] Comment on above: Performed By: #### C BC #### [facility] [address] [place] [address] Dr. Anthony Bonilla IG % 0.6 % Critically high 0.0-0.5 [facility] Comment on above: Performed By: #### C BC #### [facility] [address] [address] [address] Anthony Bonilla LYMPH # 0.7 103/ul Critically low 1.2-3.8 [facility] Comment on above: Performed By: #### C BC #### [facility] [address] [address] [address] Anthony Bonilla Lymphocytes/100 WBC (Bld) 5.7 % Critically low 20.5-60.0 [facility] Comment on above: Performed By: #### C BC #### [facility] [address] [place] [address] Dr. Anthony Bonilla MANUAL DIFF REQ NO Normal [facility] Comment on above: Performed By: #### C BC #### [facility] [address] [place] [address] Dr. Anthony Bonilla MCH (RBC) [Entitic mass] 32.6 pg Normal 26.7-34.0 [facility] Comment on above: Performed By: #### C BC #### [facility] [address] [place] [address] Dr. Anthony Bonilla MCHC (RBC) [Mass/Vol] 32.9 g/dL Normal 29.9-35.2 [facility] Comment on above: Performed By: #### C BC #### [facility] [address] [place] [address] Dr. Anthony Bonilla MCV (RBC) [Entitic vol] 99.1 fL Critically high 81.0-99.0 [facility] Comment on above: Performed By: #### C BC #### [facility] [address] [address] [address] Anthony Bonilla MONO # 0.8 103/ul Normal 0.3-0.8 [facility] Comment on above: Performed By: #### C BC #### [facility] [address] [place] [address] Dr. Anthony Bonilla Monocytes/100 WBC (Bld) 6.8 % Normal 1.7-12.0 [facility] Comment on above: Performed By: #### C BC #### [facility] [address] [address] [address] Anthony Bonilla NEUT # 9.8 103/ul Critically high 1.4-6.5 [facility] Comment on above: Performed By: #### C BC #### [facility] [address] [address] [address] Anthony Bonilla Neutrophils/100 WBC (Bld) 86.0 % Critically high 43.0-75.0 [facility] Comment on above: Performed By: #### C BC #### [facility] [address] [address] [address] Anthony Bonilla Platelet mean volume (Bld) [Entitic vol] 9.5 fL Normal 9.5-13.5 [facility] Comment on above: Performed By: #### C BC #### [facility] [address] [place] [address] Dr. Anthony Bonilla PLT 160 103/ul Normal 150-450 [facility] Comment on above: Performed By: #### C BC #### [facility] [address] [place] [address] Dr. Anthony Bonilla RBC 2.33 106/ul Critically low 4.20-5.40 [facility] Comment on above: Performed By: #### C BC #### [facility] [address] [place] [address] Dr. Anthony Bonilla WBC 11.4 103/ul Critically high 4.0-11.0 [facility] Comment on above: Performed By: #### C BC #### [facility] [address] [place] [address] Dr. Anthony Bonilla HEMOGLOBIN AND HEMATOCRITon 11-03-2021 Hematocrit (Bld) [Volume fraction] 27.0 % Critically low 36.0-48.0 [facility] Comment on above: Performed By: #### U RCX #### [facility] [address] [place] [address] Dr. Anthony Bonilla Hemoglobin (Bld) [Mass/Vol] 9.1 g/dL Critically low 12.0-16.0 [facility] Comment on above: Performed By: #### U RCX #### [facility] [address] [place] [address] Dr. Anthony Bonilla OCC BLD IMMUNO SCREENon OCCULT BLOOD Positive Abnormal NEGATIVE [facility] Comment on above: Performed By: #### C BC #### [facility] [address] [place] [address] Dr. Anthony Bonilla PROF CHEM 8 (BAS METB)on Anion gap [Moles/Vol] 10.7 mmol/L Normal [facility] Comment on above: Performed By: #### C BC #### [facility] [address] [place] [address] Dr. Anthony Bonilla Calcium [Mass/Vol] 8.6 mg/dL Normal 8.5-10.1 [facility] Comment on above: Performed By: #### C BC #### [facility] [address] [place] [address] Dr. Anthony Bonilla Chloride [Moles/Vol] 107 mmol/L Normal 98-107 [facility] Comment on above: Performed By: #### C BC #### [facility] [address] [place] [address] Dr. Anthony Bonilla CO2 [Moles/Vol] 24.4 mmol/L Normal 21.0-32.0 [facility] Comment on above: Performed By: #### C BC #### [facility] [address] [place] [address] Dr. Anthony Bonilla Creatinine [Mass/Vol] 0.98 mg/dL Normal 0.55-1.02 [facility] Comment on above: Performed By: #### C BC #### [facility] [address] [place] [address] Dr. Anthony Bonilla EGFR-AF TURKS AND [place]IC[place] ISLANDER >60 Normal >=60 [facility] Comment on above: Performed By: #### C BC #### [facility] [address] [place] [address] Dr. Anthony Bonilla EGFR-NON AF TURKS AND [place]ER 54 mL/min/1.73m2 Critically low >=60 [facility] Comment on above: Performed By: #### C BC #### [facility] [address] [address] [address] Anthony Bonilla Glucose [Mass/Vol] 98 mg/dL Normal 74-106 [facility] Comment on above: Performed By: #### C BC #### [facility] [address] [address] [address] Anthony Bonilla Potassium [Moles/Vol] 4.1 mmol/L Normal 3.5-5.1 [facility] Comment on above: Performed By: #### C BC #### [facility] [address] [address] [address] Anthony Bonilla Sodium [Moles/Vol] 138 mmol/L Normal 136-145 The [facility] Comment on above: Performed By: #### C BC #### [facility] [address] [address] [address] Anthony Bonilla Urea nitrogen [Mass/Vol] 43.0 mg/dL Critically high 7.0-18.0 [facility] Comment on above: Performed By: #### C BC #### [facility] [address] [address] [address] Anthony Bonilla Urea nitrogen/Creatinine [Mass ratio] 43.9 mg/mg Normal [facility] Comment on above: Performed By: #### C BC #### [facility] [address] [address] [address] Anthony Bonilla TYPE AND SCREENon 11-03-2021 TYPE AND SCREEN Negative Normal [facility] Comment on above: Performed By: #### C BC #### [facility] [address] [address] [address] Anthony Bonilla CBC AUTO DIFFon 11-02-2021 BASO # 0.0 103/ul Normal 0.0-0.1 [facility] Comment on above: Performed By: #### U RCX #### [facility] [address] [address] [address] Anthony Bonilla Basophils/100 WBC (Bld) 0.3 % Normal 0.2-2.0 [facility] Comment on above: Performed By: #### U RCX #### [facility] [address] [address] [address] Anthony Bonilla EO # 0.0 103/ul Normal 0.0-0.7 [facility] Comment on above: Performed By: #### U RCX #### [facility] [address] [place] [address] Dr. Anthony Bonilla Eosinophils/100 WBC (Bld) 0.1 % Critically low 0.9-7.0 [facility] Comment on above: Performed By: #### U RCX #### [facility] [address] [place] [address] Dr. Anthony Bonilla Erythrocyte distribution width (RBC) [Ratio] 13.9 % Normal 11.0-15.0 [facility] Comment on above: Performed By: #### U RCX #### [facility] [address] [place] [address] Dr. Anthony Bonilla Hematocrit (Bld) [Volume fraction] 31.8 % Critically low 36.0-48.0 [facility] Comment on above: Performed By: #### U RCX #### [facility] [address] [place] [address] Dr. Anthony Bonilla Hemoglobin (Bld) [Mass/Vol] 10.5 g/dL Critically low 12.0-16.0 [facility] Comment on above: Performed By: #### U RCX #### [facility] [address] [place] [address] Dr. Anthony Bonilla IG # 0.07 10e3/ul Critically high 0.00-0.03 [facility] Comment on above: Performed By: #### U RCX #### [facility] [address] [place] [address] Dr. Anthony Bonilla IG % 0.5 % Normal 0.0-0.5 [facility] Comment on above: Performed By: #### U RCX #### [facility] [address] [place] [address] Dr. Anthony Bonilla LYMPH # 0.9 103/ul Critically low 1.2-3.8 [facility] Comment on above: Performed By: #### U RCX #### [facility] [address] [address] [address] Anthony Bonilla Lymphocytes/100 WBC (Bld) 6.1 % Critically low 20.5-60.0 [facility] Comment on above: Performed By: #### U RCX #### [facility] [address] [address] [address] Anthony Bonilla MANUAL DIFF REQ NO Normal [facility] Comment on above: Performed By: #### U RCX #### [facility] [address] [address] [address] Anthony Bonilla MCH (RBC) [Entitic mass] 32.7 pg Normal 26.7-34.0 [facility] Comment on above: Performed By: #### U RCX #### [facility] [address] [place] [address] Dr. Anthony Bonilla MCHC (RBC) [Mass/Vol] 33.0 g/dL Normal 29.9-35.2 [facility] Comment on above: Performed By: #### U RCX #### [facility] [address] [place] [address] Dr. Anthony Bonilla MCV (RBC) [Entitic vol] 99.1 fL Critically high 81.0-99.0 [facility] Comment on above: Performed By: #### U RCX #### [facility] [address] [place] [address] Dr. Anthony Bonilla MONO # 1.0 103/ul Critically high 0.3-0.8 [facility] Comment on above: Performed By: #### U RCX #### [facility] [address] [address] [address] Anthony Bonilla Monocytes/100 WBC (Bld) 6.8 % Normal 1.7-12.0 [facility] Comment on above: Performed By: #### U RCX #### [facility] [address] [address] [address] Anthony Bonilla NEUT # 12.1 103/ul Critically high 1.4-6.5 [facility] Comment on above: Performed By: #### U RCX #### [facility] [address] [address] [address] Anthony Bonilla Neutrophils/100 WBC (Bld) 86.2 % Critically high 43.0-75.0 [facility] Comment on above: Performed By: #### U RCX #### [facility] [address] [address] [address] Anthony Bonilla Platelet mean volume (Bld) [Entitic vol] 9.8 fL Normal 9.5-13.5 [facility] Comment on above: Performed By: #### U RCX #### [facility] [address] [place] [address] Dr. Anthony Bonilla PLT 175 103/ul Normal 150-450 [facility] Comment on above: Performed By: #### U RCX #### [facility] [facility] [address] [place] [address] Dr. Anthony Bonilla RBC 3.21 106/ul Critically low 4.20-5.40 [facility] Comment on above: Performed By: #### U RCX #### [facility] [address] [place] [address] Dr. Anthony Bonilla WBC 14.0 103/ul Critically high 4.0-11.0 [facility] Comment on above: Performed By: #### U RCX #### [facility] [address] [place] [address] HEAD WO CONon 11-02-2021 CT HEAD WO CON EXAMINATION: CT HEAD WO CON HISTORY: Increased confusion and weakness. TECHNIQUE: Axial CT scans through the head were obtained without IV contrast administration. Dose reduction techniques were achieved by using: automated exposure control and/or adjustment of mA and/or kV according to patient size and/or use of iterative reconstruction technique. COMPARISON: 11/02/2015. FINDINGS: Moderate periventricular low attenuation in the cerebral hemispheres without associated mass effect. The brainstem and the cerebellum appear normal. The ventricular system and cortical sulci are prominent, secondary to cerebral volume loss. No area of abnormal mass effect, edema, or intracranial hemorrhage is shown. The visualized orbits appear normal. The visualized paranasal sinuses show no air-fluid level. Mastoid air cells are clear. IMPRESSION: 1. 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 2. No acute intracranial process. Electronically authenticated by: HERNANDO HAMLIN Date: 2021-11-01 22:36 Normal [facility] PROF CHEM 8 (BAS METB)on Anion gap [Moles/Vol] 12.2 mmol/L Normal [facility] Comment on above: Performed By: #### C BC #### [facility] [address] [address] [address] Anthony Bonilla Calcium [Mass/Vol] 8.7 mg/dL Normal 8.5-10.1 [facility] Comment on above: Performed By: #### C BC #### [facility] [address] [address] [address] Anthony Bonilla Chloride [Moles/Vol] 103 mmol/L Normal 98-107 [facility] Comment on above: Performed By: #### C BC #### [facility] [address] [address] [address] Anthony Bonilla CO2 [Moles/Vol] 25.7 mmol/L Normal 21.0-32.0 [facility] Comment on above: Performed By: #### C BC #### [facility] [address] [address] [address] Anthony Bonilla Creatinine [Mass/Vol] 1.08 mg/dL Critically high 0.55-1.02 [facility] Comment on above: Performed By: #### C BC #### [facility] [address] [address] [address] Anthony Bonilla EGFR-AF TURKS AND [place] ISLANDER 58 mL/min/1.73m2 Critically low >=60 [facility] Comment on above: Performed By: #### C BC #### [facility] [address] [address] [address] Anthony Bonilla EGFR-NON AF TURKS AND CAIC[place] ISLANDER 48 mL/min/1.73m2 Critically low >=60 [facility] Comment on above: Performed By: #### C BC #### [facility] [address] [address] [address] Anthony Bonilla Glucose [Mass/Vol] 84 mg/dL Normal 74-106 The [facility] Comment on above: Performed By: #### C BC #### [facility] [address] [address] [address] Anthony Bonilla Potassium [Moles/Vol] 4.9 mmol/L Normal 3.5-5.1 [facility] Comment on above: Performed By: #### C BC #### [facility] [address] [address] [address] Anthony Bonilla Sodium [Moles/Vol] 136 mmol/L Normal 136-145 The [facility] Comment on above: Performed By: #### C BC #### [facility] [address] [place] [address] Dr. Anthony Bonilla Urea nitrogen [Mass/Vol] 33.0 mg/dL Critically high 7.0-18.0 [facility] Comment on above: Performed By: #### C BC #### [facility] [address] [place] [address] Dr. Anthony Bonilla Urea nitrogen/Creatinine [Mass ratio] 30.6 mg/mg Normal [facility] Comment on above: Performed By: #### C BC #### [facility] [address] [place] [address] Dr. Anthony Bonilla XR CHEST 1 Von 11-02-2021 XR CHEST 1 V EXAMINATION: XR CHES T 1 V HISTORY: Asthenia COMPARISON: Chest x-ray 05/02/2021 TECHNIQUE: Portable chest FINDINGS: The lung parenchyma is free of consolidation or infiltrate. No pneumothorax or pleural effusion. Status post median sternotomy. The cardiac, mediastinal and hilar contours are normal. The visualized osseous structures exhibit no gross abnormality. IMPRESSION: No acute cardiopulmonary abnormality. Electronically authenticated by: GIANA HOLLY Date: 2021-11-01 22:05 Normal [facility] CARDIAC DARWIN ADMITon 022 CK [Catalytic activity/Vol] 92 U/L Normal 26-192 [facility] Comment on above: Performed By: #### C BC #### [facility] [address] [place] [address] Dr. Anthony Bonilla CK.MB [Mass/Vol] 1.73 ng/mL Normal <=3.60 [facility] Comment on above: Performed By: #### C BC #### [facility] [address] [place] [address] Dr. Anthony Bonilla HSTROP 20.0 pg/mL Normal 4.0-51.3 [facility] Comment on above: Result Comment: CUT- OFF POINTS HAVE BEEN ESTABLISHED BASED ON THE FOURTH UNIVERSAL DEFINITIONS OF MYOCARDIAL INFARCTION. THE UPPER REFERENCE LIMIT (URL) OF TROPONIN, DEFINED THE 99TH PERCENTILE OF cTnI DISTRIBUTION IN A REFERENCE POPULATION, HAS BEEN CONFIRMED THE DECISION THRESHOLD FOR ND DIAGNOSIS. Performed By: #### C BC #### [facility] [address] [place] [address] Dr. Anthony Bonilla CANDIDA 58 ng/mL Normal 9-82 [facility] Comment on above: Performed By: #### C BC #### [facility] [address] [place] [address] Dr. Anthony Bonilla CBC AUTO DIFFon 11-01-2021 BASO # 0.0 103/ul Normal 0.0-0.1 [facility] Comment on above: Performed By: #### U RCX #### [facility] [address] [place] [address] Dr. Anthony Bonilla Basophils/100 WBC (Bld) 0.2 % Normal 0.2-2.0 [facility] Comment on above: Performed By: #### U RCX #### [facility] [address] [place] [address] Dr. Anthony Bonilla EO # 0.0 103/ul Normal 0.0-0.7 [facility] Comment on above: Performed By: #### U RCX #### [facility] [address] [place] [address] Dr. Anthony Bonilla Eosinophils/100 WBC (Bld) 0.0 % Critically low 0.9-7.0 [facility] Comment on above: Performed By: #### U RCX #### [facility] [address] [place] [address] Dr. Anthony Bonilla Erythrocyte distribution width (RBC) [Ratio] 14.1 % Normal 11.0-15.0 [facility] Comment on above: Performed By: #### U RCX #### [facility] [address] [place] [address] Dr. Anthony Bonilla Hematocrit (Bld) [Volume fraction] 36.0 % Normal 36.0-48.0 [facility] Comment on above: Performed By: #### U RCX #### [facility] [address] [address] [address] Anthony Bonilla Hemoglobin (Bld) [Mass/Vol] 12.1 g/dL Normal 12.0-16.0 [facility] Comment on above: Performed By: #### U RCX #### [facility] [address] [place] [address] Dr. Anthony Bonilla IG # 0.11 10e3/ul Critically high 0.00-0.03 [facility] Comment on above: Performed By: #### U RCX #### [facility] [address] [place] [address] Dr. Anthony Bonilla IG % 0.5 % Normal 0.0-0.5 [facility] Comment on above: Performed By: #### U RCX #### [facility] [address] [place] [address] Dr. Anthony Bonilla LYMPH # 0.7 103/ul Critically low 1.2-3.8 [facility] Comment on above: Performed By: #### U RCX #### [facility] [address] [place] [address] Dr. Anthony Bonilla Lymphocytes/100 WBC (Bld) 3.2 % Critically low 20.5-60.0 [facility] Comment on above: Performed By: #### U RCX #### [facility] [address] [place] [address] Dr. Anthony Bonilla MANUAL DIFF REQ NO Normal [facility] Comment on above: Performed By: #### U RCX #### [facility] [address] [place] [address] Dr. Anthony Bonilla MCH (RBC) [Entitic mass] 33.0 pg Normal 26.7-34.0 [facility] Comment on above: Performed By: #### U RCX #### [facility] [address] [place] [address] Dr. Anthony Bonilla MCHC (RBC) [Mass/Vol] 33.6 g/dL Normal 29.9-35.2 [facility] Comment on above: Performed By: #### U RCX #### [facility] [address] [place] [address] Dr. Anthony Bonilla MCV (RBC) [Entitic vol] 98.1 fL Normal 81.0-99.0 [facility] Comment on above: Performed By: #### U RCX #### [facility] [address] [place] [address] Dr. Anthony Bonilla MONO # 1.1 103/ul Critically high 0.3-0.8 [facility] Comment on above: Performed By: #### U RCX #### [facility] [address] [place] [address] Dr. Anthony Bonilla Monocytes/100 WBC (Bld) 4.8 % Normal 1.7-12.0 [facility] Comment on above: Performed By: #### U RCX #### [facility] [address] [place] [address] Dr. Anthony Bonilla NEUT # 20.3 103/ul Critically high 1.4-6.5 [facility] Comment on above: Performed By: #### U RCX #### [facility] [address] [place] [address] Dr. Anthony Bonilla Neutrophils/100 WBC (Bld) 91.3 % Critically high 43.0-75.0 [facility] Comment on above: Performed By: #### U RCX #### [facility] [address] [place] [address] Dr. Anthony Bonilla Platelet mean volume (Bld) [Entitic vol] 10.8 fL Normal 9.5-13.5 [facility] Comment on above: Performed By: #### U RCX #### [facility] [address] [place] [address] Dr. Anthony Bonilla PLT 179 103/ul Normal 150-450 [facility] Comment on above: Performed By: #### U RCX #### [facility] [address] [place] [address] Dr. Anthony Bonilla RBC 3.67 106/ul Critically low 4.20-5.40 [facility] Comment on above: Performed By: #### U RCX #### [facility] [address] [place] [address] Dr. Anthony Bonilla WBC 22.2 103/ul Critically high 4.0-11.0 [facility] Comment on above: Performed By: #### U RCX #### [facility] [address] [place] [address] Dr. Anthony Bonilla CULTURE BLOODon 11-01-2021 Microscopic examination of blood, culture Culture Observations: NO GROWTH AT 5 DAYS. Normal [facility] Comment on above: Performed By: #### B LDCX2 #### [facility] [address] [place] [address] Dr. Anthony Bonilla Performed By: #### C BC #### [facility] [address] [place] [address] Dr. Anthony Bonilla Covid-19 PCR (CVDTB)on 10-10 SARS-CoV-2 (COVID-19) RNA OH+probe Ql (Unsp spec) Detected Critically abnormal NOT DETECTED [facility] Comment on above: Result Comment: This test is not yet approved or cleared by the [place] FDA. When there are no FDA-approved or cleared tests available, and other criteria are met, FDA can make tests available under an emergency access mechanism called an Emergency Use Authorization (EUA). The EUA for this test is supported by the [employer] of Health and Human Service's declaration that circumstances exist to justify the emergency use of in vitro diagnostics for the detection and/or diagnosis of the virus that causes COVID-19. This EUA will remain in effect for the duration of the COVID-19 declaration justifying emergency of IVDs, unless it is terminated or revoked by the FDA (after which the test may no longer be used). Performed By: #### C BC #### [facility] [address] [address] [address] Anthony Bonilla ER URINE PROFILEon 2 Bilirubin Ql (U) Negative Normal NEGATIVE [facility] Comment on above: Performed By: #### U RCX #### [facility] [address] [address] [address] Anthony Bonilla Clarity (U) CLEAR Normal CLEAR [facility] Comment on above: Performed By: #### U RCX #### [facility] [address] [address] [address] Anthony Bonilla Color (U) LT. YELLOW Normal YELLOW [facility] Comment on above: Performed By: #### U RCX #### [facility] [address] [place] [address] Dr. Anthony Bonilla ERUAHD A micrscopic examina tion will be performed if indicated. Normal [facility] Comment on above: Performed By: #### U RCX #### [facility] [address] [place] [address] Dr. Anthony Bonilla Glucose Ql (U) Negative Normal NEGATIVE [facility] Comment on above: Performed By: #### U RCX #### [facility] [address] [address] [address] Anthony Bonilla Hemoglobin Ql (U) TRACE-INTACT Abnormal NEGATIVE [facility] Comment on above: Performed By: #### U RCX #### [facility] [address] [address] [address] Anthony Bonilla Ketones Ql (U) Negative Normal NEGATIVE [facility] Comment on above: Performed By: #### U RCX #### [facility] [address] [address] [address] Anthony Bonilla LEUKOCYTES Negative Normal NEGATIVE [facility] Comment on above: Performed By: #### U RCX #### [facility] [address] [address] [address] Anthony Bonilla Nitrite Ql (U) Negative Normal NEGATIVE [facility] Comment on above: Performed By: #### U RCX #### [facility] [address] [place] [address] Dr. Anthony Bonilla pH (U) 6.0 [pH] Normal 5-9 [facility] Comment on above: Performed By: #### U RCX #### [facility] [address] [place] [address] Dr. Anthony Bonilla SPEC GRAVITY 1.020 Normal 1.005-<=1. 025 [facility] Comment on above: Performed By: #### U RCX #### [facility] [address] [place] [address] Dr. Anthony Bonilla UA PROTEIN Negative Normal NEGATIVE/ TRACE [facility] Comment on above: Performed By: #### U RCX #### [facility] [address] [place] [address] Dr. Anthony Bonilla UR MICRO IND INDICATED Normal [facility] Comment on above: Performed By: #### U RCX #### [facility] [address] [place] [address] Dr. Anthony Bonilla Urobilinogen Qn (U) 1.0 {Gen'U}/dL Normal 0.2 - 1. 0 [facility] Comment on above: Performed By: #### U RCX #### [facility] [address] [place] [address] Dr. Anthony Bonilla LACTATE/LACTIC ACIDon 2021 Lactate [Moles/Vol] 1.6 mmol/L Normal 0.4-1.9 [facility] Comment on above: Performed By: #### C BC #### [facility] [address] [place] [address] Dr. Anthony Bonilla PROF 14(COMP METB)on 022 Albumin [Mass/Vol] 3.2 g/dL Critically low 3.4-5.0 [facility] Comment on above: Performed By: #### C BC #### [facility] [address] [place] [address] Dr. Anthony Bonilla Albumin/Globulin [Mass ratio] 0.9 {ratio} Normal [facility] Comment on above: Performed By: #### C BC #### [facility] [address] [address] [address] Anthony Bonilla ALP [Catalytic activity/Vol] 26 U/L Critically low 46-116 [facility] Comment on above: Performed By: #### C BC #### [facility] [address] [place] [address] Dr. Anthony Bonilla ALT [Catalytic activity/Vol] 32 U/L Normal 14-59 [facility] Comment on above: Performed By: #### C BC #### [facility] [address] [place] [address] Dr. Anthony Bonilla Anion gap [Moles/Vol] 11.5 mmol/L Normal [facility] Comment on above: Performed By: #### C BC #### [facility] [address] [place] [address] Dr. Anthony Bonilla AST [Catalytic activity/Vol] 16 U/L Normal 15-37 [facility] Comment on above: Performed By: #### C BC #### [facility] [address] [address] [address] Anthony Bonilla Bilirubin [Mass/Vol] 1.2 mg/dL Critically high 0.2-1.0 [facility] Comment on above: Performed By: #### C BC #### [facility] [address] [place] [address] Dr. Anthony Bonilla Calcium [Mass/Vol] 9.0 mg/dL Normal 8.5-10.1 [facility] Comment on above: Performed By: #### C BC #### [facility] [address] [place] [address] Dr. Anthony Bonilla Chloride [Moles/Vol] 102 mmol/L Normal 98-107 [facility] Comment on above: Performed By: #### C BC #### [facility] [address] [place] [address] Dr. Anthony Bonilla CO2 [Moles/Vol] 25.2 mmol/L Normal 21.0-32.0 [facility] Comment on above: Performed By: #### C BC #### [facility] [address] [place] [address] Dr. Anthony Bonilla Creatinine [Mass/Vol] 1.25 mg/dL Critically high 0.55-1.02 [facility] Comment on above: Performed By: #### C BC #### [facility] [address] [address] [address] Anthony Bonilla EGFR-AF TURKS AND [place]ER 49 mL/min/1.73m2 Critically low >=60 [facility] Comment on above: Performed By: #### C BC #### [facility] [address] [address] [address] Anthony Bonilla EGFR-NON AF TURKS AND [place]ER 41 mL/min/1.73m2 Critically low >=60 [facility] Comment on above: Performed By: #### C BC #### [facility] [address] [place] [address] Dr. Anthony Bonilla Globulin (S) [Mass/Vol] 3.4 g/dL Normal [facility] Comment on above: Performed By: #### C BC #### [facility] [address] [place] [address] Dr. Anthony Bonilla Glucose [Mass/Vol] 102 mg/dL Normal 74-106 [facility] Comment on above: Performed By: #### C BC #### [facility] [address] [place] [address] Dr. Anthony Bonilla Potassium [Moles/Vol] 4.7 mmol/L Normal 3.5-5.1 [facility] Comment on above: Performed By: #### C BC #### [facility] [address] [place] [address] Dr. Anthony Bonilla Protein [Mass/Vol] 6.6 g/dL Normal 6.4-8.2 [facility] Comment on above: Performed By: #### C BC #### [facility] [address] [place] [address] Dr. Anthony Bonilla Sodium [Moles/Vol] 134 mmol/L Critically low 136-145 [facility] Comment on above: Performed By: #### C BC #### [facility] [address] [place] [address] Dr. Anthony Bonilla Urea nitrogen [Mass/Vol] 33.0 mg/dL Critically high 7.0-18.0 [facility] Comment on above: Performed By: #### C BC #### [facility] [address] [place] [address] Dr. Anthony Bonilla Urea nitrogen/Creatinine [Mass ratio] 26.4 mg/mg Normal [facility] Comment on above: Performed By: #### C BC #### [facility] [address] [place] [address] Dr. Anthony Bonilla PROTIMEon 11-01-2021 INR Coag (PPP) [Relative time] 0.97 {INR} Normal [facility] Comment on above: Performed By: #### U RCX #### [facility] [address] [place] [address] Dr. Anthony Bonilla INR GUIDELINES SEE BELOW Normal [facility] Comment on above: Result Comment: MEGAN RED INR: 2.0 - 3.0 CONDITIONS NOT LISTED BELOW 2.5 - 3.5 FOR PROSTHETIC HEART VALVE REPLACEMENT 2.5 - 3.5 RECURRENT THROMBOSIS Performed By: #### U RCX #### [facility] [address] [place] [address] Dr. Anthony Bonilla PT Coag (PPP) [Time] 10.5 s Normal 9.0-11.6 [facility] Comment on above: Performed By: #### U RCX #### [facility] [address] [place] [address] Dr. Anthony Bonilla PTTon 11-01-2021 aPTT Coag (Bld) [Time] 27.8 s Normal 22.3-36.2 [facility] Comment on above: Performed By: #### U RCX #### [facility] [address] [place] [address] Dr. Anthony Bonilla TSHon 11-01-2021 TSH 1.011 uIU/mL Normal 0.358-3.74 0 [facility] Comment on above: Performed By: #### C BC #### [facility] [address] [place] [address] Dr. Anthony Bonilla URINE MICROSCOPIC ONLYon BACTERIA LARGE Abnormal NONE SEEN [facility] Comment on above: Performed By: #### U RCX #### [facility] [address] [place] [address] Dr. Anthony Bonilla Bacteria identified Cx Nom (U) INDICATED Normal [facility] Comment on above: Performed By: #### U RCX #### [facility] [address] [place] [address] Dr. Anthony Bonilla CAST NONE SEEN Normal NONE SEEN [facility] Comment on above: Performed By: #### U RCX #### [facility] [address] [place] [address] Dr. Anthony Bonilla Crystals LM Nom (Urine sed) NONE SEEN Normal NONE SEEN [facility] Comment on above: Performed By: #### U RCX #### [facility] [address] [place] [address] Dr. Anthony Bonilla Epithelial cells LM Ql (Urine sed) FEW Abnormal NONE SEEN /RARE [facility] Comment on above: Performed By: #### U RCX #### [facility] [address] [place] [address] Dr. Anthony Bonilla MUCOUS NONE SEEN Normal NONE SEEN [facility] Comment on above: Performed By: #### U RCX #### [facility] [address] [place] [address] Dr. Anthony Bonilla RBC 2-5 Abnormal 0-2 [facility] Comment on above: Performed By: #### U RCX #### [facility] [address] [place] [address] Dr. Anthony Bonilla WBC 0-2 Abnormal NONE SEEN [facility] Comment on above: Performed By: #### U RCX #### [facility] [address] [place] [address] Dr. Anthony Bonilla Covid-19 PCR (CVDTB)on SARS-CoV-2 (COVID-19) RNA [place]+probe Ql (Unsp spec) Detected Critically abnormal NOT DETECTED [facility] Comment on above: Result Comment: This test is not yet approved or cleared by the [place] FDA. When there are no FDA-approved or cleared tests available, and other criteria are met, FDA can make tests available under an emergency access mechanism called an Emergency Use Authorization (EUA). The EUA for this test is supported by the [place] of Health and Human Service's declaration that circumstances exist to justify the emergency use of in vitro diagnostics for the detection and/or diagnosis of the virus that causes COVID-19. This EUA will remain in effect for the duration of the COVID-19 declaration justifying emergency of IVDs, unless it is terminated or revoked by the FDA (after which the test may no longer be used). Performed By: #### C BC #### [facility] [address] [place] [id number] Anthony Bonilla Covid-19 PCR ([facility])on SARS-CoV-2 (COVID-19) RNA [place]+probe Ql (Unsp spec) Not detected Normal NOT DETECTED [facility] Comment on above: Result Comment: This test is not yet approved or cleared by the [place] FDA. When there are no FDA-approved or cleared tests available, and other criteria are met, FDA can make tests available under an emergency access mechanism called an Emergency Use Authorization (EUA). The EUA for this test is supported by the [place] of Health and Human Service's (HHS's) declaration that circumstances exist to justify the emergency use of in vitro diagnostics for the detection and/or diagnosis of the virus that causes COVID-19. This EUA will remain in effect (meaning this test can be used) for the duration of the COVID-19 declaration justifying emergency of IVDs, unless it is terminated or revoked by FDA (after which the test may no longer be used). When diagnostic testing is negative, the possibility of a false negative should be considered in the context of a patient's recent exposures and the presence of clinical signs and symptoms consistent with SARS-CoV-2. Performed By: #### U RCX #### [facility] [address] [place] [id number] [address] Anthony Bonilla Coding Summaryon 10-19-2019 Coding Summary CODING DATE: 020 [facility] STATUS: Transfer to [facility] PAYOR: Medicare Grouper: 470 MS-DRG MAJOR HIP AND KNEE JOINT REPLACEMENT OR REATTACHMENT OF LOWER EXTREMITY W/O [facility] Low Trim 0 High Trim 999 ADMIT DX: M16.12 Unilateral primary osteoarthritis, left hip REASON FOR VISIT DX: FINAL DX: PRINCIPAL: M16.12 Y Unilateral primary osteoarthritis, left hip SECONDARY: N39.0 Y Urinary tract infection, site not specified Z47.2 1 Encounter for removal of internal fixation device M62.838 Y Other muscle spasm B96.20 Y Unspecified Escherichia coli [E. 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 However, the narrative phrase printed from the coding software may appear abbreviated, or result in slightly different terminology. Revised Coded By: Ambar Manley Revised Date Saved: 10/19/2019 05:[address] [facility] Coding Queryon 10-02-2019 Coding Query HIM CODING QUERY FOR Accurate coding and billing requires that the principal diagnosis, secondary diagnosis and procedures be supported by physician documentation and that this documentation be reflected in the discharge summary (if required for patient type). Any time this information is not complete, it is the shuttle route vehicle operator?s responsibility to query the physician. Based on medical record review, the following issues have been identified: ( X ) Procedure: The patient was in for a Total Left Hip Replacement. Please document on your Operative Note via an addendum what the hip replacement (bearing surfaces) are made of -- meaning is it made of: Ceramic; Ceramic on Polyethlyne; Metal; Metal on Polyethlyne; Oxidized Zirconium on Polyethlene or Synthetic Substitute -- not specified in previous options The above information is required per the CPT manual in order to assign the correct procedure code. In the event of diagnosis/procedure clarification, please write or dictate an addendum to either the progress notes or discharge summary, using today?s date, and sign. Thank you for your cooperation and timely attention to this matter. Ambar Manley Press Officer Ext [phone] [Electronically Signed on: 10/18/2019 21:40 EDT] Mi Licea DO [Verified on: 10/18/2019 21:40 EDT] Mi Licea DO [Transcribed on: 10/02/2019 11:06 EDT] [facility] Consent Formson 09-29-2019 Consent Forms [id number]#1.00[facility] Medication Managementon 09-09 Medication Management [id number]#1.00[facility] Outside Recordson 09-29-2019 Outside Records [id number]#1.00[facility] Outside Records [id number]#1.00[facility] Provider Orderson 09-29-2019 Provider Orders [id number]#1.00[facility] Telemetry Stripson 0 Telemetry Strips [id number]#1.00[facility] .Auto Diff 1on 2019 Auto [place] % 11 % Normal 02-19 [place] Comment on above: Performed By: #### 1 [id number], [id number], [id number] #### [facility] (DEFAULT) [address] [place] [address] Baso Abs# 0.0 x10 Normal 0.0-0.2 [place] Comment on above: Performed By: #### 1 [id number], [id number], [id number] #### [facility] (DEFAULT) [address] [place] [address] Basophils/100 WBC (Bld) 0.1 % Low 0.2-2.0 [place] Comment on above: Performed By: #### 1 [id number], [id number], [id number] #### [facility] (DEFAULT) [address] [place] [address] Eos Abs# 0.2 x10 Normal 0.0-0.4 [place] Comment on above: Performed By: #### 1 [id number], [id number], [id number] #### [facility] (DEFAULT) [address] [place] [address] Eosinophils/100 WBC (Bld) 2.2 % Normal 0.9-4.0 [place] Comment on above: Performed By: #### 1 [id number], [id number], [id number] #### [facility] (DEFAULT) [address] [place] [address]213 Lymphocytes (Bld) [#/Vol] 0.6 x10 Low 1.3-2.9 [place] Comment on above: Performed By: #### 1 [id number], [id number], [id number] #### [facility] (DEFAULT) [address] [place] [address] 23030 Lymphocytes/100 WBC (Bld) 6 % Low 14-48 [place] Comment on above: Performed By: #### 1 [id number], [id number], [id number] #### [facility] (DEFAULT) [address] [place] [address] [place] Abs# 1.0 x10 High 0.0-0.8 [place] Comment on above: Performed By: #### 1 [id number], [id number], [id number] #### [facility] (DEFAULT) [address] [place] [address] 31326 Neut Abs# 7.2 x10 Normal 1.5-9.2 [place] Comment on above: Performed By: #### 1 [id number], [id number], [id number] #### [facility] (DEFAULT) [address] [place] [address] 14584 Neutrophils/100 WBC (Bld) 80 % Normal 44-88 [place] Comment on above: Performed By: #### 1 [id number], [id number], [id number] #### [facility] (DEFAULT) [address] [place] [address] 79049 CBC w/ Auto Diffon 0 Erythrocyte distribution width (RBC) [Ratio] 14.4 % Normal 11.5-15.0 [place] Comment on above: Performed By: #### 1 [id number], [id number], [id number] #### [facility] (DEFAULT) [address] [place] [address] Hematocrit (Bld) [Volume fraction] 36.2 % Normal 33.7-40.4 [place] Comment on above: Performed By: #### 1 [id number], [id number], [id number] #### [facility] (DEFAULT) [address] [place] [address] Hemoglobin (Bld) [Mass/Vol] 11.9 g/dL Normal 11.3-15.9 [place] Comment on above: Performed By: #### 1 [id number], [id number], [id number] #### [facility] (DEFAULT) [address] [place] [address] 30690 Man Diff? Auto Normal [place] Comment on above: Performed By: #### 1 [id number], [id number], [id number] #### [facility] (DEFAULT) [address] [place] [address] 15974 MCH (RBC) [Entitic mass] 33 pg Normal 24-34 [place] Comment on above: Performed By: #### 1 [id number], [id number], [id number] #### [facility] (DEFAULT) [address] [place] [address]246 MCHC (RBC) [Mass/Vol] 33 g/dL Normal 26-37 [place] Comment on above: Performed By: #### 1 [id number], [id number], [id number] #### [facility] (DEFAULT) [address] [place] [address] 77419 MCV (RBC) [Entitic vol] 100 fL Normal 81-100 [place] Comment on above: Performed By: #### 1 [id number], [id number], [id number] #### [facility] (DEFAULT) [address] [place] [address] 82585 Platelet mean volume (Bld) [Entitic vol] 9.6 fL Normal 6.3-10.2 [place] Comment on above: Performed By: #### 1 [id number], [id number], [id number] #### [facility] (DEFAULT) [address] [place] [address] 14813 Platelets (Bld) [#/Vol] 286 x10 Normal 138-427 [place] Comment on above: Performed By: #### 1 [id number], [id number], [id number] #### [facility] (DEFAULT) [address] [place] [address] 60313 RBC (Bld) [#/Vol] 3.61 x10 Low 3.70-5.30 [facility] Comment on above: Performed By: #### 1 [id number], [id number], [id number] #### [facility] (DEFAULT) [address] [place] [address] 64192 WBC (Bld) [#/Vol] 9.[address] [facility] Comment on above: Performed By: #### 1 [id number], [id number], [id number] #### [facility] (DEFAULT) [address] [place] [address]30 Education Noteon 2019 Education Note Education Materials POST OPERATIVE TOTAL KNEE/HIP DISCHARGE INTRUCTIONS SURGEONS WRITTEN INSTRUCTIONS: Walk with walker; bear weight to tolerance on operative extremity Elevate extremity 1 hour 3 times/day to control pain and swelling Range of motion to ankle 10 times/hour Range of motion to knee hourly Change dressing daily. Veronica hose (compression stockings) for 6 weeks Physical therapy as prescribed. do not do abduction exercise. May shower, no tub bath. Do not rub/scrub incision. Wash gently Take Aspirin 325mg 1x daily to prevent blood clots, coated or uncoated per patient preference. WHAT YOU SHOULD KNOW AFTER YOUR OPERATION: If you need pain pills, start before the pain becomes intense. Pain pills are frequently less upsetting to your stomach if you take them with food such as crackers or bread. If you have excessive or persistent pain, swelling, bleeding, nausea, vomiting or any other problems, you should first call your surgeon for advice. If you are unable to contact your surgeon, seek help from the emergency room. FOR THE PREVENTION OF DVT AFTER LOWER EXTREMITY SURGERY What is a DVT? There is always the risk of DVT after lower extremity surgery. DVT, or deep vein thrombosis, is a blood blot in a major vein that may partially or completely block the flow of blood. The clot occurs in the legs or pelvis, in areas where blood flow is slow, or in an injured blood vessel. DVT can be life-threatening should pieces of the clot break away and travel to the lungs. This is called pulmonary embolism What are the symptoms of DVT? The area affected by the blood clot may become swollen and painful, and possibly turn red as the normal flow of blood is blocked. You may also develop edema, which is the build up of fluid in the skin tissues surrounding the clot. If the clot is somewhere other than your leg, there may be no physical signs of DVT. If the clot breaks away and travels to your lungs, you may experience shortness of breath and chest pain. If this occurs you should call your doctor immediately or go to the emergency room. How can I prevent DVT? You should keep active. Moving the ankle and foot and bending the knee as tolerated when you are in bed and walking as tolerated. Take medication, especially the Aspirin, as prescribed by your doctor. What should I do if I think I have a DVT? You should call your doctor or go to the emergency room any time you have a sudden and unusual shortness of breath that is not related to exercise, exertion or anxiety. If you have swelling with redness and pain in your leg, you should call your doctor immediately. If there is concern then a test called ?Venous Doppler? can be done to rule of a DVT. Normal [place] [facility] 2019 Tube Collected Yes [place] Comment on above: Performed By: #### 1 [id number], [id number], [id number] #### [facility] (DEFAULT) [address] [place] [address] Inpatient Patient Summaryon 2019 Inpatient Patient Summary [address] [address] Patient Discharge Instructions Name: DELICIA HSU : 1935 Patient Address: [address] [place] [address] Primary Care Provider: Name: Gypsy Mcmahon MD After you are discharged if you find you have any questions, please, call [phone] ext [phone] to speak to a nurse. Discharge Diagnosis: Primary localized osteoarthritis of left hip Prescription Information: If you have been given a prescription for narcotics, seek immediate medical attention if you have any difficulty breathing or any sudden status changes such as confusion and sleepiness. If you or anyone you know is experiencing suicidal thoughts, mental health, alcohol and/or drug addiction problems; contact the [facility] 31/08 Crisis Hotline -text 4hope to 741741. If you received any narcotics, sedation, or any other medication that causes drowsiness for the next 24 hours, unless otherwise directed: ? Do not drive a car. ? Do not operate machinery such as power tools, lawn mowers, drills, sewing machines, or stoves ? Avoid alcoholic beverages and drugs for allergies, nerves, or sleep ? Do not make important personal or business decisions or sign any legal documents [place] would like to thank you for allowing us to assist you with your healthcare needs. The following includes patient education materials and information regarding your injury/illness. DELICIA HSU has been given the following list of follow-up instructions, prescriptions, and patient education materials: Follow-up Instructions With: Address: When: Mi Licea [address] [facility] [address] [place] [address] Business (2) 10/03/2019 8:30 AM With: Address: When: Gypsy Mcmahon [address] [place] [address] [place] [address] Business (1) Medications During the course of your visit, your medication list was updated with the most current information. The details of those changes are reflected below: New Medications Other Medications cefuroxime (cefuroxime 250 mg oral tablet) 1 tab(s) Oral 2 times a day for 7 Days. MAGRU. Medications That Were Updated - Follow Below Instructions Other Medications Updated: budesonide (budesonide 3 mg oral delayed release capsule) 3 cap(s) Oral every day. Medications to Continue That Have Not Changed Other Medications acetaminophen (Tylenol Caplet 325 mg oral tablet) 2 tab(s) Oral Every 6 hours as needed pain. cholecalciferol (Vitamin D3 2000 intl units oral capsule) 1 tab(s) Oral every day. ferrous sulfate (ferrous sulfate 325 mg (65 mg elemental iron) oral delayed release tablet) 1 tab(s) Oral every day. melatonin (Melatonin 5 mg oral tablet) 1 tab(s) Oral once a day (at bedtime) as needed for insomnia. metoprolol (Metoprolol Succinate ER 50 mg oral tablet, extended release) 1 tab(s) Oral every day. psyllium (Metamucil 3.4 g/5.2 g oral powder for reconstitution) 3.4 gram Oral 3 times a day as needed for constipation. simvastatin (simvastatin 40 mg oral tablet) 1 tab(s) Oral once a day (at bedtime). spironolactone (spironolactone 25 mg oral tablet) 1 tab(s) Oral every day. trolamine salicylate topical (Aspercreme 10% topical cream) 1 bri Topical 4 times a day as needed for pain. No Longer Take the Following Medications aspirin (aspirin 81 mg oral delayed release tablet) 1 tab(s) Oral every day. traMADol (traMADol 50 mg oral tablet) 1 tab(s) Oral Every 6 hours as needed as needed for pain. It is important to always keep an active list of medications available so that you can share with other providers and manage your medications appropriately. As an additional courtesy, we are also providing you with your final active medications list that you can keep with you. acetaminophen (Tylenol Caplet 325 mg oral tablet) 2 tab(s) Oral Every 6 hours as needed pain. budesonide (budesonide 3 mg oral delayed release capsule) 3 cap(s) Oral every day. cefuroxime (cefuroxime 250 mg oral tablet) 1 tab(s) Oral 2 times a day for 7 Days. MAGRU. cholecalciferol (Vitamin D3 2000 intl units oral capsule) 1 tab(s) Oral every day. ferrous sulfate (ferrous sulfate 325 mg (65 mg elemental iron) oral delayed release tablet) 1 tab(s) Oral every day. melatonin (Melatonin 5 mg oral tablet) 1 tab(s) Oral once a day (at bedtime) as needed for insomnia. metoprolol (Metoprolol Succinate ER 50 mg oral tablet, extended release) 1 tab(s) Oral every day. psyllium (Metamucil 3.4 g/5.2 g oral powder for reconstitution) 3.4 gram Oral 3 times a day as needed for constipation. simvastatin (simvastatin 40 mg oral tablet) 1 tab(s) Oral once a day (at bedtime). spironolactone (spironolactone 25 mg oral tablet) 1 tab(s) Oral every day. trolamine salicylate topical (Aspercreme 10% topical cream) 1 bri Topical 4 times a day as needed for pain. Take only the medications listed above. Contact your doctor prior to taking any medications not on this list. Medication leaflets, if any, will display below Diet & Activity Patient Activity Level: Patient Diet: Patient Activity Restrictions: Patient education materials, if any, will display below POST OPERATIVE TOTAL KNEE/HIP DISCHARGE INTRUCTIONS SURGEONS WRITTEN INSTRUCTIONS: Walk with walker; bear weight to tolerance on operative extremity Elevate extremity 1 hour 3 times/day to control pain and swelling Range of motion to ankle 10 times/hour Range of motion to knee hourly Change dressing daily. Veronica hose (compression stockings) for 6 weeks Physical therapy as prescribed. do not do abduction exercise. May shower, no tub bath. Do not rub/scrub incision. Wash gently Take Aspirin 325mg 1x daily to prevent blood clots, coated or uncoated per patient preference. WHAT YOU SHOULD KNOW AFTER YOUR OPERATION: If you need pain pills, start before the pain becomes intense. Pain pills are frequently less upsetting to your stomach if you take them with food such as crackers or bread. If you have excessive or persistent pain, swelling, bleeding, nausea, vomiting or any other problems, you should first call your surgeon for advice. If you are unable to contact your surgeon, seek help from the emergency room. FOR THE PREVENTION OF DVT AFTER LOWER EXTREMITY SURGERY What is a DVT? There is always the risk of DVT after lower extremity surgery. DVT, or deep vein thrombosis, is a blood blot in a major vein that may partially or completely block the flow of blood. The clot occurs in the legs or pelvis, in areas where blood flow is slow, or in an injured blood vessel. DVT can be life-threatening should pieces of the clot break away and travel to the lungs. This is called pulmonary embolism What are the symptoms of DVT? The area affected by the blood clot may become swollen and painful, and possibly turn red as the normal flow of blood is blocked. You may also develop edema, which is the build up of fluid in the skin tissues surrounding the clot. If the clot is somewhere other than your leg, there may be no physical signs of DVT. If the clot breaks away and travels to your lungs, you may experience shortness of breath and chest pain. If this occurs you should call your doctor immediately or go to the emergency room. How can I prevent DVT? You should keep active. Moving the ankle and foot and bending the knee as tolerated when you are in bed and walking as tolerated. Take medication, especially the Aspirin, as prescribed by your doctor. What should I do if I think I have a DVT? You should call your doctor or go to the emergency room any time you have a sudden and unusual shortness of breath that is not related to exercise, exertion or anxiety. If you have swelling with redness and pain in your leg, you should call your doctor immediately. If there is concern then a test called ?Venous Doppler? can be done to rule of a DVT. Viruses or Bacteria What?s got you sick? Antibiotics only treat bacterial infections. Viral illnesses cannot be treated with antibiotics. When an antibiotic is not prescribed, ask your healthcare professional for tips on how to relieve symptoms and feel better. Usual Cause Illness Viruses Bacteria Antibiotic Needed Cold/Runny Nose NO Bronchitis/Chest Cold (in otherwise healthy children and adults) NO Whooping Cough Yes Flu NO Strep Throat Yes Sore Throat (except strep) NO Fluid in the middle ear (otitis media with effusion) NO Urinary Tract Infection Yes Antibiotics Aren?t Always the Answer www.cdc.gov/getsmart GET SMART Know When Antibiotics Work [place] Department of Health and Human Services Centers for Disease Control and Prevention October [address] [facility] Progress Note - Nurseon 082 MCH (RBC) [[facility] mass] Pt. transferred to bed times one assist. Pt. able to stand from chair per self but needed assistance bringing left leg into the bed. Dressing change to left hip completed by Dr. Redd. One and a half primipores applied. Steri strips intact. Incision well approximated. Old dressing contained a scant amt. of dry brown drainage. Pt. tolerated well. No moaning noted by pt. when Dr. Redd was in the room. [Electronically Signed on: 2019 11:52 EDT] Pan Regalado RN [Verified on: 2019 11:52 EDT] Pan Regalado RN [facility] Progress Note - Nurse Pt. reports intermittent left upper inner thigh grabbing pain. Pt. moans during these episodes. Tramadol given. Pt. repostioned for comfort. No change in the muscle spasms. Dr. Chacko informed in person. No orders received. [Electronically Signed on: 2019 09:32 EDT] Pan Regalado RN [Verified on: 2019 09:32 EDT] Pan Regalado RN [facility] Progress Note-Physicianon Progress Note-Physician DATE OF POSTOPERATIVE ORTHOPEDIC PROGRESS NOTE: 2019 TIME: 10:55 am The patient is in her bedside chair. She is awake and alert. Today, she states she has no dizziness or light-headedness. She denies chest pain or shortness of breath. She denies nausea or vomiting. She has had a bowel movement and she is urinating without difficulty. She states she is still getting the spasm type pain in her upper thigh on the left. She has been treated with Lidoderm patches and this does not seem to make much difference. She was also given Flexeril which also did not seem to affect this. Apparently, she had similar complaints prior to her hip surgery but not as frequent as it is now. She denies numbness and tingling into the left lower extremity. PHYSICAL EXAMINATION: VITAL SIGNS: Blood pressure is 161/79 and SpO2 is 94 on room air. She has been afebrile. LOWER EXTREMITIES: Today, I observed her getting up from the chair into the bed and she did reasonably well. The dressing was changed on the left hip and there is just scant drainage. There are no erythematous changes. No signs of sepsis. There is only mild swelling about the wound and mild ecchymosis. Her Greg's sign is negative. In the sitting position, she was able to initiate knee extension. LABORATORY STUDIES: Today, the WBC count is down to 9.0 from 13.4, hemoglobin 11.9 and hematocrit 36.2 and no left shift is noted. IMPRESSION: DAY #3 STATUS POST TOTAL LEFT HIP ARTHROPLASTY AND DOING SATISFACTORILY. PLAN: 1. I have spoken with her daughter. We are going to try her on some Gabapentin to help address the spasm symptoms in her left groin. 2. She is being discharged to an extended care facility and will follow up with Dr. Licea. PROGNOSIS: Good. Devorah Redd DO JOB #: [id number] [Electronically Signed on: 2019 13:04 EDT] DEVORAH REDD DO [Verified on: 2019 13:04 EDT] DEVORAH REDD DO [Transcribed on: 2019 11:05 EDT] [facility] .Auto Diff 1on 08-19-2020 Auto [place] % 9 % Normal 1-12 [place] Comment on above: Performed By: #### 1 [id number], [id number], [id number] #### [facility] (DEFAULT) [address] [place] [address] 43575 Baso Abs# 0.0 x10 Normal 0.0-0.2 [place] Comment on above: Performed By: #### 1 [id number], [id number], [id number] #### [facility] (DEFAULT) [address] [place] [address] 11583 Basophils/100 WBC (Bld) 0.1 % Low 0.2-2.0 [place] Comment on above: Performed By: #### 1 [id number], [id number], [id number] #### [facility] (DEFAULT) [address] [place] [address] 39031 Eos Abs# 0.2 x10 Normal 0.0-0.4 [place] Comment on above: Performed By: #### 1 [id number], [id number], [id number] #### [facility] (DEFAULT) [address] [place] [address] 73421 Eosinophils/100 WBC (Bld) 1.6 % Normal 0.9-4.0 [place] Comment on above: Performed By: #### 1 [id number], [id number], [id number] #### [facility] (DEFAULT) [address] [place] [address] 99702 Lymphocytes (Bld) [#/Vol] 0.5 x10 Low 1.3-2.9 [place] Comment on above: Performed By: #### 1 [id number], [id number], [id number] #### [facility] (DEFAULT) [address] [place] [address] 92969 Lymphocytes/100 WBC (Bld) 4 % Low 14-48 [place] Comment on above: Performed By: #### 1 [id number], [id number], [id number] #### [facility] (DEFAULT) [address] [place] [address] 41877 [place] Abs# 1.2 x10 High 0.0-0.8 [place] Comment on above: Performed By: #### 1 [id number], [id number], [id number] #### [facility] (DEFAULT) [address] [place] [address] Neut Abs# 11.5 x10 High 1.5-9.2 [place] Comment on above: Performed By: #### 1 [id number], [id number], [id number] #### [facility] (DEFAULT) [address] [place] [address] Neutrophils/100 WBC (Bld) 86 % Normal 44-88 [place] Comment on above: Performed By: #### 1 [id number], [id number], [id number] #### [facility] (DEFAULT) [address] [place] [address] C Urineon 09-27-2019 C Urine Urine Culture ordere d as a result of parameters set on specific urine dip and urine microsopic results. >100,000 cfu/ml Escherichia coli ORGANISM EC SUSCEPTIBILITY ORGANISM ID: 1 ANTIBIOTIC INTERPRETATION JODY STATUS ORGANISM ECEC Amik S <=16 Verified Amox/Cla S <=8/4 Verified Amp S <=8 Verified Amp/Sul S <=8/4 Verified Azt S <=4 Verified Cefaz S <=2 Verified Cefep S <=8 Verified Cefo S <=2 Verified Ceftaz S <=1 Verified Ceftri S <=1 Verified Cefur S <=4 Verified Ceph S <=8 Verified Cipro S <=1 Verified Ertap S <=0.5 Verified Gent S <=2 Verified Imi S <=1 Verified Levo S <=2 Verified Nitro S <=32 Verified Pip/Moy S <=16 Verified Tetra S <=4 Verified Tobra S <=4 Verified Tri/Sulf S <=2/38 Verified Normal [place] Comment on above: Performed By: #### 7 [id number], [id number], [id number] #### [facility] (DEFAULT) [address] [place] [address] CBC w/ Auto Diffon 0 Erythrocyte distribution width (RBC) [Ratio] 14.5 % Normal 11.5-15.0 [place] Comment on above: Performed By: #### 1 [id number], [id number], [id number] #### [facility] (DEFAULT) [address] [place] [address] Hematocrit (Bld) [Volume fraction] 39.2 % Normal 33.7-40.4 [place] Comment on above: Performed By: #### 1 [id number], [id number], [id number] #### [facility] (DEFAULT) [address] [place] [address] Hemoglobin (Bld) [Mass/Vol] 12.8 g/dL Normal 11.3-15.9 [place] Comment on above: Performed By: #### 1 [id number], [id number], [id number] #### [facility] (DEFAULT) [address] [place] [address] Man Diff? Auto Normal [place] Comment on above: Performed By: #### 1 [id number], [id number], [id number] #### [facility] (DEFAULT) [address] [place] [address] MCH (RBC) [Entitic mass] 33 pg Normal 24-34 [place] Comment on above: Performed By: #### 1 [id number], [id number], [id number] #### [facility] (DEFAULT) [address] [place] [address] MCHC (RBC) [Mass/Vol] 33 g/dL Normal 26-37 [place] Comment on above: Performed By: #### 1 [id number], [id number], [id number] #### [facility] (DEFAULT) [address] [place] [address] MCV (RBC) [Entitic vol] 101 fL High 81-100 [place] Comment on above: Performed By: #### 1 [id number], [id number], [id number] #### [facility] (DEFAULT) [address] [place] [address] 57284 Platelet mean volume (Bld) [Entitic vol] 9.8 fL Normal 6.3-10.2 [place] Comment on above: Performed By: #### 1 [id number], [id number], [id number] #### [facility] (DEFAULT) [address] [place] [address] 18761 Platelets (Bld) [#/Vol] 266 x10 Normal 138-427 [place] Comment on above: Performed By: #### 1 [id number], [id number], [id number] #### [facility] (DEFAULT) [address] [place] [address] 18350 RBC (Bld) [#/Vol] 3.89 x10 Normal 3.70-5.30 [facility] Comment on above: Performed By: #### 1 [id number], [id number], [id number] #### [facility] (DEFAULT) [address] [place] [address] 97688 WBC (Bld) [#/Vol] 13.[address] [facility] Comment on above: Result Comment: Slid e Reviewed Performed By: #### 1 [id number], [id number], [id number] #### [facility] (DEFAULT) [address] [place] [address] 59252 Coding Summaryon 09-27-2019 Coding Summary CODING DATE: 020 [facility] STATUS: Home PAYOR: Medicare ADMIT DX: REASON FOR VISIT DX: Z11.59 Encounter for screening for other viral diseases FINAL DX: PRINCIPAL: Z11.59 Encounter for screening for other viral diseases SECONDARY: PYMT PROC APC STAT DESCRIPTION DOCTOR NAME DATE NOTE: The code number assigned matches the documented diagnosis and / or procedure in the patient's chart. However, the narrative phrase printed from the coding software may appear abbreviated, or result in slightly different terminology. Coded By: Marisela Lawrence Date Saved: 09/27/2019 11:11 am Normal [place] Extra Greenon 09-27-2019 Tube Collected Yes [place] Comment on above: Performed By: #### 1 [id number], [id number], [id number] #### [facility] (DEFAULT) [address] [place] [address] Nutrition Noteon 09-27-2019 Nutrition Note Pt eating poorly, av g less than 30% of meals per intake records. Supplements also taken sporadically. Suspect pain and constipation may be playing a role. No new wts. Last BM 09/23. Possible discharge later today. Will continue to follow and monitor need to adjust supplements ie. offer to make into a milkshake, [facility] Pharmacy Noteon 09-27-2019 Pharmacy Note I have reviewed this patient's current medication list including prescription medications, OTC products, vitamins and supplements for the following: Med Rec: Previously completed Action: none required Renal Function: Estimated CrCl: 43.03 ml/min Automatic pharmacy renal dose adjusted medication(s): None currently Action: _ Continue to monitor renal function Antibiotics: Cefazolin _ Indication: surgery Culture Results: none Action: None required Pain Management: Scheduled non-narcotic: ketorolac 30 mg ivp q6h prn narcotic pain medication(s): oxycodone 5 mg q4h prn moderate pain and 10 mg q4h prn severe pain._ __ [Electronically Signed on: 09/27/2019 14:01 EDT] Virgie Santos [Verified on: 09/27/2019 14:01 EDT] Virgie Santos [facility] Progress Note - Nurseon 08-1 Progress Note - Nurse 1800 one dulcolax suppository administered, will continue to monitor. [Electronically Signed on: 09/27/2019 18:03 EDT] Luli Mclain RN [Verified on: 09/27/2019 18:03 EDT] Luli Mclain RN [facility] Progress Note - Nurse 1710 tramadol 50mg po administered for #10 left upper thigh pain , will continue to monitor. [Electronically Signed on: 09/27/2019 17:09 EDT] Luli Mclain RN [Verified on: 09/27/2019 17:09 EDT] Luli Mclain RN [facility] Progress Note-Physicianon Progress Note-Physician DATE OF POSTOPERATIVE ORTHOPEDIC PROGRESS NOTE: 09/27/2019 TIME: 1:45 pm This is an 83-year-old female. The patient is awake, alert and oriented. She is observed ambulating in the hallway and doing well. She states at rest, per pain is under good control but with ambulation is spikes. She denies any light-headedness, dizziness, shortness of breath or chest pain. She denies nausea or vomiting. She is urinating without difficulty and passing flatus but no bowel movement. She denies numbness and tingling into the left lower extremity. PHYSICAL EXAMINATION: VITAL SIGNS: The last 2 blood pressure readings were 169/77 and 161/63 but otherwise normal. SpO2 is 95 on room air. LOWER EXTREMITIES: Examination of the left lower extremity reveals she has excellent dorsi and plantar flexion of her foot and ankle. She has no calf tenderness to deep palpation and Greg's sign is negative. She can almost do a straight leg raise. Today, the dressing was changed and the wound is healing satisfactorily. There is minimal swelling. No erythematous changes. No signs of sepsis. Sterile dressings were re-applied. LABORATORY STUDIES: Her WBC count is slightly elevated at 13.4. Hemoglobin 12.8 and hematocrit 39.2 with a slight left shift of absolute neutrophils of 11.5. IMPRESSION: STATUS POST TOTAL LEFT HIP ARTHROPASTY x2 DAYS. PLAN: We anticipate discharge to an extended care facility tomorrow. PROGNOSIS: Good. Devorah Redd DO JOB #: [id number] [Electronically Signed on: 2019 10:28 EDT] DEVORAH REDD DO [Verified on: 2019 10:28 EDT] DEVORAH REDD DO [Transcribed on: 09/27/2019 13:52 EDT] U Normal [place] .Auto Diff 1on 09-26-2019 Auto [place] % 9 % Normal 1-12 [place] Comment on above: Performed By: #### 1 [id number], [id number], [id number] #### [facility] (DEFAULT) [address] [place] [address] 64036 Baso Abs# 0.0 x10 Normal 0.0-0.2 [place] Comment on above: Performed By: #### 1 [id number], [id number], [id number] #### [facility] (DEFAULT) [address] [place] [address] 35441 Basophils/100 WBC (Bld) 0.1 % Low 0.2-2.0 [place] Comment on above: Performed By: #### 1 [id number], [id number], [id number] #### [facility] (DEFAULT) [address] [place] [address] 94167 Eos Abs# 0.2 x10 Normal 0.0-0.4 [place] Comment on above: Performed By: #### 1 [id number], [id number], 1473786 #### [facility] (DEFAULT) [address] [place] [address] 91451 Eosinophils/100 WBC (Bld) 2.0 % Normal 0.9-4.0 [place] Comment on above: Performed By: #### 1 [id number], [id number], 0472266 #### [facility] (DEFAULT) [address] [place] [address] Lymphocytes (Bld) [#/Vol] 0.6 x10 Low 1.3-2.9 [place] Comment on above: Performed By: #### 1 [id number], [id number], [id number] #### [facility] (DEFAULT) [address] [place] [address] Lymphocytes/100 WBC (Bld) 6 % Low 14-48 [place] Comment on above: Performed By: #### 1 [id number], [id number], [id number] #### [facility] (DEFAULT) [address] [place] [address] [place] Abs# 0.9 x10 High 0.0-0.8 [place] Comment on above: Performed By: #### 1 [id number], [id number], 1486176 #### [facility] (DEFAULT) [address] [place] [address] Neut Abs# 8.3 x10 Normal 1.5-9.2 [place] Comment on above: Performed By: #### 1 [id number], 96478437, [id number] #### [facility] (DEFAULT) [address] [place] [address] 38130 Neutrophils/100 WBC (Bld) 83 % Normal 44-88 [place] Comment on above: Performed By: #### 1 [id number], 69361877, [id number] #### [facility] (DEFAULT) [address] [place] [address] 82311 BMP Standardon 09-26-2019 eGFR Non AA 48 mL/min/1.73m2 [facility] Comment on above: Performed By: #### 1 [id number], 84810904, 4605517 #### [facility] (DEFAULT) [address] [place] [address] eGFR AA 58 mL/min/1.73m2 [place] Comment on above: Result Comment: Drier Operator Helper kody Kidney disease could be indicated at eGFRs of less than 60 ml/min/1.73m2. Kidney Failure is indicated at less than 15 ml/min/1.73m2 Performed By: #### 1 [id number], [id number], 9945016 #### [facility] (DEFAULT) [address] [place] [address] 80893 Anion gap [Moles/Vol] 10.0 mmol/L Normal 5.0-19.0 [place] Comment on above: Performed By: #### 1 [id number], 67921232, 8128273 #### [facility] (DEFAULT) [address] [place] [address] 30907 Calcium [Mass/Vol] 8.8 mg/dL Low 8.9-10.3 [facility] Comment on above: Performed By: #### 1 [id number], 43549508, 6535373 #### [facility] (DEFAULT) [address] [place] [address] 88746 Chloride [Moles/Vol] 103 mmol/L Normal 101-111 [place] Comment on above: Performed By: #### 1 [id number], 91941011, [id number] #### [facility] (DEFAULT) [address] [place] [address] 32529 CO2 [Moles/Vol] 28 mmol/L Normal 21-32 [place] Comment on above: Performed By: #### 1 [id number], 43285312, 7509947 #### [facility] (DEFAULT) [address] [place] [address] 05117 Creatinine [Mass/Vol] 1.09 mg/dL Normal 0.60-1.30 [place] Comment on above: Performed By: #### 1 [id number], 59633402, 4830599 #### [facility] (DEFAULT) [address] [place] [address] 13066 Glucose [Mass/Vol] 94.0 mg/dL Normal 74.0-118.0 [facility] Comment on above: Performed By: #### 1 [id number], 35752288, 5813842 #### [facility] (DEFAULT) [address] [place] [address] Osmolality [Osmolality] 276 mOsm/L [place] Comment on above: Performed By: #### 1 [id number], [id number], 9389874 #### [facility] (DEFAULT) [address] [place] [address] Potassium [Moles/Vol] 4.4 mmol/L Normal 3.6-5.1 [place] Comment on above: Performed By: #### 1 [id number], 07544691, 1575135 #### [facility] (DEFAULT) [address] [place] [address] Sodium [Moles/Vol] 137.0 mmol/L Normal 136.0-144 . 0 [place] Comment on above: Performed By: #### 1 [id number], [id number], 5657739 #### [facility] (DEFAULT) [address] [place] [address] Urea nitrogen [Mass/Vol] 19 mg/dL Normal 8-26 [place] Comment on above: Performed By: #### 1 [id number], [id number], [id number] #### [facility] (DEFAULT) [address] [place] [address] Urea nitrogen/Creatinine [Mass ratio] 17.0 mg/mg High 4.6-16.2 [place] Comment on above: Performed By: #### 1 [id number], [id number], 7731811 #### [facility] (DEFAULT) [address] [place] [address] CBC w/ Auto Diffon 0 Erythrocyte distribution width (RBC) [Ratio] 14.4 % Normal 11.5-15.0 [place] Comment on above: Performed By: #### 1 [id number], [id number], 0662385 #### [facility] (DEFAULT) [address] [place] [address] Hematocrit (Bld) [Volume fraction] 35.5 % Normal 33.7-40.4 [place] Comment on above: Performed By: #### 1 [id number], 45247901, 3181964 #### [facility] (DEFAULT) [address] [place] [address] 43956 Hemoglobin (Bld) [Mass/Vol] 11.6 g/dL Normal 11.3-15.9 [place] Comment on above: Performed By: #### 1 [id number], 99102264, 0838263 #### [facility] (DEFAULT) [address] [place] [address] Man Diff? Auto Normal [place] Comment on above: Performed By: #### 1 [id number], [id number], 7405978 #### [facility] (DEFAULT) [address] [place] [address] MCH (RBC) [Entitic mass] 33 pg Normal 24-34 [place] Comment on above: Performed By: #### 1 [id number], 39859850, 4426001 #### [facility] (DEFAULT) [address] [place] [address] MCHC (RBC) [Mass/Vol] 33 g/dL Normal 26-37 [place] Comment on above: Performed By: #### 1 [id number], 88590240, 3845771 #### [facility] (DEFAULT) [address] [place] [address] MCV (RBC) [Entitic vol] 102 fL High 81-100 [place] Comment on above: Performed By: #### 1 [id number], 38748062, 5357482 #### [facility] (DEFAULT) [address] [place] [address] 45654 Platelet mean volume (Bld) [Entitic vol] 9.8 fL Normal 6.3-10.2 [place] Comment on above: Performed By: #### 1 [id number], 46902220, 9658540 #### [facility] (DEFAULT) [address] [place] [address] Platelets (Bld) [#/Vol] 236 x10 Normal 138-427 [place] Comment on above: Performed By: #### 1 [id number], 19366536, 8223994 #### [facility] (DEFAULT) [address] [place] [address] RBC (Bld) [#/Vol] 3.49 x10 Low 3.70-5.30 [facility] Comment on above: Performed By: #### 1 [id number], 47060489, 2796422 #### [facility] (DEFAULT) [address] [place] [address] WBC (Bld) [#/Vol] 10.[address] [facility] Comment on above: Performed By: #### 1 [id number], [id number], 4798954 #### [facility] (DEFAULT) [address] [place] [address] Consent Formson 09-26-2019 Consent Forms [id number] Normal [place] Consultation/Specialist Note on 09-26-2019 Consultation/Specia list Note Patient: DELICIA HSU Age: 83 years Sex: FEMALE : 1935 Associated Diagnoses: None Author: SUDHEER PIKE Basic Information 1 day s/p LT GAYLA (DOS 09/25/2019) she is laying in bed comfortable at this point due to just waking up. She notes she is in a lot of pain and rated her pain all day yesterday 12/18 and has been alternating percocet and morphine. She is eating a little and drinking fluids. EPC cuffs on, VERONICA hose on. Denies any acute distress. Subjective pt has been up to use the bathroom without a Bowel movement. She was up yesterday evening Health Status Allergies: Allergic Reactions (All) Severity Not Documented Antihistamines- No reactions were documented. Nonallergic Reactions (All) Severity Not Documented Phenergan- Hyperactivity. Objective VS/Measurements Vital Signs 09/26/2019 7:00 EDT Systolic Blood Pressure 133 mmHg Diastolic Blood Pressure 54 mmHg LOW 09/26/2019 4:56 EDT Respiratory Rate 18 br/min 09/26/2019 3:00 EDT Temperature Oral 36.6 DegC Temperature Oral (DegF) 97.88 DegF Peripheral Pulse Rate 65 bpm Review / Management Results review: Lab results: 09/25/2019 13:27 EDT WBC 11.7 x103/mcL HI . Condition: Stable. Impression and Plan Course: Progressing as expected. Education and Follow-up: Counseled: Patient. Discharge Planning: Plan to discharge ( To home ). discharge home with daughter pending pain control. She is still having an incredible amount of pain. Once pain controlled she may leave. She will be staying at her daughters house. She is looking forward to going home. continue up out of bed as tolerated. [Electronically Signed on: 09/26/2019 07:35 EDT] SUDHEER PIKE [Verified on: 09/26/2019 07:35 EDT] SUDHEER PIKE [facility] Progress Note - Nurseon 09-08 Progress Note - Nurse On 09/25/2019 this nurse was unable to complete series of blood pressures after surgery due to pt. extreme pain. Pt. was calling out et restless et unable to tolerate et obtain accurate readings. Was awake et responsive. Focus was on pt. care et obtaining adequate pain control. [Electronically Signed on: 09/26/2019 07:42 EDT] Twila Cruz RN [Verified on: 09/26/2019 07:42 EDT] Twila Cruz RN This nurse at bedside for approximately 90 minutes to assure needs were met. [Electronically Signed on: 09/26/2019 07:45 EDT] Nancy CHAIDEZ, Twila Normal [place] .Auto Diff 1on 09-25-2019 Auto [place] % 8 % Normal 1-12 [place] Comment on above: Performed By: #### 1 [id number], [id number], [id number] #### [facility] (DEFAULT) [address] [place] [address] Baso Abs# 0.0 x10 Normal 0.0-0.2 [place] Comment on above: Performed By: #### 1 [id number], [id number], [id number] #### [facility] (DEFAULT) [address] [place] [address] Basophils/100 WBC (Bld) 0.2 % Normal 0.2-2.0 [place] Comment on above: Performed By: #### 1 [id number], 35584042, [id number] #### [facility] (DEFAULT) [address] [place] [address] Eos Abs# 0.1 x10 Normal 0.0-0.4 [place] Comment on above: Performed By: #### 1 [id number], [id number], 7663205 #### [facility] (DEFAULT) [address] [place] [address] Eosinophils/100 WBC (Bld) 0.5 % Low 0.9-4.0 [place] Comment on above: Performed By: #### 1 [id number], [id number], 7145498 #### [facility] (DEFAULT) [address] [place] [address] 65807 Lymphocytes (Bld) [#/Vol] 1.1 x10 Low 1.3-2.9 [place] Comment on above: Performed By: #### 1 [id number], [id number], 9276204 #### [facility] (DEFAULT) [address] [place] [address] 94387 Lymphocytes/100 WBC (Bld) 9 % Low 14-48 [place] Comment on above: Performed By: #### 1 [id number], [id number], [id number] #### [facility] (DEFAULT) [address] [place] [address] [place] Abs# 1.0 x10 High 0.0-0.8 [place] Comment on above: Performed By: #### 1 [id number], [id number], 8741461 #### [facility] (DEFAULT) [address] [place] [address] Neut Abs# 9.6 x10 High 1.5-9.2 [place] Comment on above: Performed By: #### 1 [id number], 45656697, 2772466 #### [facility] (DEFAULT) [address] [place] [address] Neutrophils/100 WBC (Bld) 82 % Normal 44-88 [place] Comment on above: Performed By: #### 1 [id number], [id number], 3410063 #### [facility] (DEFAULT) [address] [place] [address] ABORhon 09-25-2019 ABO and Rh group Nom (Bld) Hx Check: Not Found Anti-A: 4+ Anti-B: 0 Anti-D: 4+ DCon: NT A1: 0 B: 4+ ABORh Interp: A POS [place] Comment on above: Performed By: #### 7 [id number], [id number], [id number] #### [facility] (DEFAULT) [address] [place] [address] ABORh Retypeon 09-25-2019 ABO and Rh group Nom (Bld) Ordered by Discern. Anti-A: 4+ Anti-B: 0 Anti-D: 4+ DCon: NT A1: 0 B: 4+ ABORh Retype: A POS [place] Comment on above: Performed By: #### 7 [id number], [id number], [id number] #### [facility] (DEFAULT) [address] [place] [address] ABSC Gelon 09-25-2019 ABSC Gel Negative Normal [place] Comment on above: Performed By: #### 7 [id number], [id number], [id number] #### [facility] (DEFAULT) [address] [place] [address] Anesthesia Noteon 09-25-2019 Anesthesia Note Patient: DONTAE HSU Age: 83 years Sex: FEMALE : 1935 Associated Diagnoses: None Author: Enrike Mora MD Preoperative Information Anesthesia history: Patient history: postop hallucinations, No difficult intubation, No malignant hyperthermia. Family history: No malignant hyperthermia. Review of Systems Respiratory: Apnea, No shortness of breath. Cardiovascular: s/p CABG many years ago, no issues since, No chest pain. Gastrointestinal: No heartburn. Health Status Allergies: Allergic Reactions (All) Severity Not Documented Antihistamines- No reactions were documented. Nonallergic Reactions (All) Severity Not Documented Phenergan- Hyperactivity. Current medications: Home Medications (13) Active alendronate 70 mg oral tablet 70 mg = 1 tab(s), PO, qWeek Aspercreme 10% topical cream 1 bri, PRN, TOP, QID aspirin 81 mg oral delayed release tablet 81 mg = 1 tab(s), PO, Daily budesonide 3 mg oral delayed release capsule 1 tab(s), PO, Daily ferrous sulfate 325 mg (65 mg elemental iron) oral delayed release tablet 325 mg = 1 tab(s), PO, Daily Melatonin 5 mg oral tablet 5 mg = 1 tab(s), PRN, PO, Once a day (at bedtime) Metamucil 3.4 g/5.2 g oral powder for reconstitution 3.4 gm, PRN, PO, TID Metoprolol Succinate ER 50 mg oral tablet, extended release 50 mg = 1 tab(s), PO, Daily simvastatin 40 mg oral tablet 40 mg = 1 tab(s), PO, Once a day (at bedtime) spironolactone 25 mg oral tablet 25 mg = 1 tab(s), PO, Daily traMADol 50 mg oral tablet 50 mg = 1 tab(s), PRN, PO, q6hr Tylenol Caplet 325 mg oral tablet 650 mg = 2 tab(s), PRN, PO, q6hr Vitamin D3 2000 intl units oral capsule 1 tab(s), PO, Daily Problem list (past medical history): All Problems At risk of pressure sore / SNOMED CT 044620219 / Confirmed CAD (coronary artery disease) / SNOMED CT 06124102 / Confirmed Hyperlipidemia / SNOMED CT 83574977 / Confirmed Hypertension / SNOMED CT 1656938551 / Confirmed Skin cancer / SNOMED CT 9766975175 / Confirmed Osteoporosis / SNOMED CT 572428243 / Confirmed Restless leg syndrome / SNOMED CT 75830482 / Confirmed Resolved: GERD (gastroesophageal reflux disease) / SNOMED CT 635900158 Histories Family History: Cancer Sister Brother Aneurysm Mother CHF - Congestive heart failure Father ND (myocardial infarction) Sister Procedure history: Umbilical hernia (2213106638). Arthroscopy (68146762). Comments: 08/29/2019 12:57 Dionne Mccarty RN arthroscopy of knee Cholecystectomy (87305812). Hysterectomy (163873842). Cataract (106999757). Shoulder (40861810). Comments: 08/29/2019 12:58 Dionne Mccarty RN arthroscopy CABG (Coronary artery bypass grafting) planned (654206220). Colonoscopy (216386714). EGD - Esophagogastroduodenoscopy (7117718385). Meniscectomy (585762879). Hip arthroplasty (417132191). Social History Electronic Cigarette/Vaping Assessment Electronic Cigarette Use: Never. Alcohol Assessment Use: Never. Tobacco Assessment Former smoker, quit more than 30 days ago Tobacco Use:. Substance Abuse Assessment Substance use: Never. . Physical Examination VS/Measurements Vital Signs (last 24 hrs) Last Charted Heart Rate Peripheral L 55bpm (SEP 24 07:45) Resp Rate 16 br/min (SEP 24 07:45) SBP H 153mmHg (SEP 24 07:45) DBP 67 mmHg (SEP 24 07:45) SpO2 95 % (SEP 24 07:45) Weight 68.3 kg (SEP 24 08:08) General: Alert and oriented, No acute distress. Airway: Mallampati classification: II (soft palate, fauces, uvula visible). Mouth: Dentures ( Upper and lower dentures ). Respiratory: Respirations are non-labored. Review / Management Results review: Lab results 09/25/2019 8:42 EDT Hgb 12.7 gm/dL Hct 39.9 % ABORh Interp A POS ABSC Gel Interp Negative Tube Collected Yes , COVID negative. Laboratory Results ECG interpretation: SR, PVCs, L axis dev, LAFB, RV conduction delay. Plan [place] [employer] Anesthesiologists#(ASA) physical status classification: Class III. Anesthetic Preoperative Plan Anesthesia: Regional Spinal. Anesthetic plan, risks, benefits, and alternatives discussed with the patient and/or family. Patient verbalized understanding. Informed consent was given. Consent was signed by the patient. [Electronically Signed on: 09/25/2019 10:10 EDT] Enrike Mora MD [Verified on: 09/25/2019 10:10 EDT] Enrike Mora MD Normal [facility] IDon 09-25-2019 Blood Bank ID BBID: [id number] [place] Comment on above: Performed By: #### 7 [id number], [id number], [id number] #### [facility] (DEFAULT) [address] [place] [address] CBC w/ Auto Diffon 0 Erythrocyte distribution width (RBC) [Ratio] 14.4 % Normal 11.5-15.0 [place] Comment on above: Performed By: #### 1 [id number], [id number], [id number] #### [facility] (DEFAULT) [address] [place] [address] Hematocrit (Bld) [Volume fraction] 39.2 % Normal 33.7-40.4 [place] Comment on above: Performed By: #### 1 [id number], [id number], [id number] #### [facility] (DEFAULT) [address] [place] [address] Hemoglobin (Bld) [Mass/Vol] 12.8 g/dL Normal 11.3-15.9 [place] Comment on above: Performed By: #### 1 [id number], [id number], [id number] #### [facility] (DEFAULT) [address] [place] [address] 97234 Man Diff? Auto Normal [place] Comment on above: Performed By: #### 1 [id number], [id number], [id number] #### [facility] (DEFAULT) [address] [place] [address] 13659 MCH (RBC) [Entitic mass] 33 pg Normal 24-34 [place] Comment on above: Performed By: #### 1 [id number], [id number], [id number] #### [facility] (DEFAULT) [address] [place] [address] 86269 MCHC (RBC) [Mass/Vol] 33 g/dL Normal 26-37 [place] Comment on above: Performed By: #### 1 [id number], [id number], [id number] #### [facility] (DEFAULT) [address] [place] [address] 15268 MCV (RBC) [Entitic vol] 102 fL High 81-100 [place] Comment on above: Performed By: #### 1 [id number], [id number], [id number] #### [facility] (DEFAULT) [address] [place] [address] 58780 Platelet mean volume (Bld) [Entitic vol] 9.4 fL Normal 6.3-10.2 [place] Comment on above: Performed By: #### 1 [id number], [id number], [id number] #### [facility] (DEFAULT) [address] [place] [address] 70849 Platelets (Bld) [#/Vol] 272 x10 Normal 138-427 [place] Comment on above: Performed By: #### 1 [id number], [id number], [id number] #### [facility] (DEFAULT) [address] [place] [address] 86090 RBC (Bld) [#/Vol] 3.85 x10 Normal 3.70-5.30 [facility] Comment on above: Performed By: #### 1 [id number], [id number], [id number] #### [facility] (DEFAULT) [address] [place] [address] WBC (Bld) [#/Vol] 11.7 x10 High 3.5-10.5 [facility] Comment on above: Performed By: #### 1 [id number], [id number], [id number] #### [facility] (DEFAULT) [address] [place] [address] Extra Chauncey 09-25-2019 Tube Collected Yes [place] Comment on above: Performed By: #### 7 [id number], [id number], [id number] #### [facility] (DEFAULT) [address] [place] [address] H&Hon 09-25-2019 Hematocrit (Bld) [Volume fraction] 39.9 % Normal 33.7-40.4 [place] Comment on above: Performed By: #### 7 [id number], [id number], [id number] #### [facility] (DEFAULT) [address] [place] [address] Hemoglobin (Bld) [Mass/Vol] 12.7 g/dL Normal 11.3-15.9 [place] Comment on above: Performed By: #### 7 [id number], [id number], [id number] #### [facility] (DEFAULT) [address] [place] [address] History and Physicalon 09-24 History and Physical [id number] Normal [place] MAGR Intraoperative Recordon 09-25-2019 MAGR Intraoperative Record MAGR Intra-Op Record Summary Primary Physician: Mi Licea DO Finalized Date/Time: 09/25/19 15:04:11 Pt. Name: DELICIA HSU/Sex: 1935 FEMALE Med Rec #: [id number] Physician: Mi Licea DO Financial #: [id number] Pt. Type: I Room/Bed: [facility]/1 Admit/Disch: 09/25/19 06:52:00 - Institution: Case Times MAGR Entry 1 Patient In Room Time 09/25/19 09:37:00 Out Room Time 09/25/19 11:50:00 Anesthesia Start Time 09/25/19 09:37:00 Stop Time 09/25/19 11:53:00 Surgery Start Time 09/25/19 10:22:00 Stop Time 09/25/19 11:36:00 Last Modified By: Marj Sullivan RN 09/25/19 12:54:51 Case Attendance MAGR Entry 1 Entry 2 Entry 3 Case Attendee Mi Licea Satya S MD Sauer, Stephanie RN Andrew DO Role Performed Surgeon - Primary Anesthesiologist of Steam Crane Operator Record Time In 09/25/19 09:37:00 09/25/19 09:37:00 09/25/19 09:37:00 Time Out 09/25/19 11:50:00 09/25/19 11:50:00 09/25/19 11:50:00 Procedure Arthroplasty Total Arthroplasty Total Arthroplasty Total Hip(Left) Hip(Left) Hip(Left) Last Modified By: Marj Sullivan RN, Stephanie RN Sauer, Stephanie RN 09/25/19 12:54:58 09/25/19 12:54:58 09/25/19 12:54:58 Entry 4 Entry 5 Entry 6 Case Attendee Montrell MCKEON, Shantal Moreira Leigh-Ann CST Role Performed Scrub Personnel Wallpaper Scraper Wallpaper Scraper Time In 09/25/19 09:37:00 09/25/19 09:37:00 09/25/19 09:37:00 Time Out 09/25/19 11:50:00 09/25/19 11:50:00 09/25/19 11:50:00 Procedure Arthroplasty Total Arthroplasty Total Arthroplasty Total Hip(Left) Hip(Left) Hip(Left) Last Modified By: Marj Sullivan RN, Stephanie RN Sauer, Stephanie RN 09/25/19 12:54:58 09/25/19 12:54:58 09/25/19 12:54:58 General Comments: Robel Walden Rep Surgical Procedures MAGR Pre-Care Text: A.20 Verifies operative procedure, surgical site, and laterality Im.150 Develops individualized plan of care Entry 1 Procedure Arthroplasty Total Hip Primary Procedure Yes Primary Surgeon Mi Licea Left Eduardo DO Surgeon Comment LEFT TOTAL HIP Start 09/25/19 10:22:00 Stop 09/25/19 11:36:00 Anesthesia Type General Surgical Service Orthopedics Wound Class Clean Technique Details Closure Technique Primary Entire procedure No was performed via laparoscope or robotic assistance Last Modified By: Marj Sullivan RN 09/25/19 12:55:08 Post-Care Text: O.730 The patient's care is consistent with the individualized perioperative plan of care General Case Data MAGR Pre-Care Text: A.350.1 Classifies surgical wound Entry 1 Case Information OR MAGR OR 01 Case Level Level 5 Wound Class Clean Specialty Orthopedics ASA Class 3 Diagnosis Preop Diagnosis DJD LEFT HIP Postop Same As Preop Yes Postop Diagnosis DJD LEFT HIP Blunt or No Is the procedure No penetrating injury considered occured prior to Emergent/Urgent? the start of the procedure: Last Modified By: Marj Sullivan RN 09/25/19 10:38:10 Post-Care Text: O.760 Patient receives consistent and comparable care regardless of the setting Time Out MAGR Entry 1 Time out date/time 09/25/19 10:22:00 All team members Yes have introduced themselves by name and role Surgeon, Yes Surgeon reviews Yes anesthesia, nurse critical or confirm patient, unexpected steps, site, procedure operative duration, anticipated blood loss Anesthesia team Yes Nursing team Yes reviews any reviews sterility patient-specific (including concerns indicator results) and equipment issues/concerns Antibiotic Antibiotic Yes Administration Time 09:50 prophylaxis given within the last 60 minutes Is essential Yes imaging displayed? Last Modified By: Marj Sullivan RN 09/25/19 10:38:33 Patient Positioning MAGR Pre-Care Text: A.280 Identifies baseline musculoskeletal status Im.40 Positions the patient Im.80 Applies safety devices Entry 1 Procedure Arthroplasty Total Body Position Lateral Hip(Left) Left Arm Position Extended on padded arm Right Arm Position Extended board Left Leg Position Extended Right Leg Position Extended Feet Uncrossed? Yes Press Points Checked Yes Positioning Device Arm Boards, Arm Strap, Outcome Met (O.80) Yes Pillow, Peg Board Last Modified By: Marj Sullivan RN 09/25/19 10:38:43 Post-Care Text: E.290 Evaluates musculoskeletal status O.80 Patient is free from signs and symptoms of injury related to positioning Skin Prep MAGR Pre-Care Text: A.30 Verifies allergies Im.270 Performs skin preparation Im.270.1 Implements protective measures to prevent skin and tissue injury due to chemical sources Entry 1 Skin Prep Syntegrity Prep Agents (Im.270) Chlorhexidine Gluconate Prep By Marj Sullivan RN and Alcohol Prep Area (Im.270) Hip, Leg, Foot Prep Area Details Left Skin Prep Agent Dry Yes Without Pooling Hair Removal Syntegrity Hair Removal Methods No hair removal performed Outcome Met (O.100) Yes Last Modified By: Marj Sullivan RN 09/25/19 10:39:51 Post-Care Text: E.10 Evaluates for signs and symptoms of physical injury to skin and tissue O.100 Patient is free from signs and symptoms of chemical injury Counts Verification MAGR Pre-Care Text: A.20 Verifies operative procedure, surgical site, and laterality A.20.2 Assesses the risk for unintended retained foreign body Im.20 Performs required counts Entry 1 Procedure Arthroplasty Total Hip(Left) Counts Verification Initial Counts Items included in Sponges, Sharps Initial Counts Manual the Initial Count Method Initial Counts Marj Sullivan RN, Initial Count Time 09/25/19 09:20:00 Performed By Ange Stock CST Counts Verification Final Counts Items Included in Sponges, Sharps Final Count Method Manual Final Count Final Count Status Correct Final Counts Ange Stock CST, Performed By Marj Sullivan RN Final Count Time 09/25/19 11:15:00 Surgeon notified of Yes final counts status Outcome Met (O.20) Yes Last Modified By: Marj Sullivan RN 09/25/19 11:15:19 Post-Care Text: E.50 Evaluates results of the surgical count O.20 Patient is free from unintended retained foreign objects Patient Care Devices MAGR Pre-Care Text: A.200 Assesses risk for normothermia regulation A.40 Verifies presence of prosthetics or corrective devices Im.280 Implements thermoregulation measures Im.60 Uses supplies and equipment within safe parameters Entry 1 Entry 2 Equipment Type FLOWTRON CALF CUFF REG FORCED WARM AIR Serial ?# [id number] Equipment Setting FACTORY DEFAULT 43 DEGREES Last Modified By: Marj Sullivan RN, Stephanie RN 09/25/19 10:41:07 09/25/19 10:41:07 Post-Care Text: E.10 Evaluates signs and symptoms of physical injury to skin and tissue O.700 Patient is free from signs and symptoms of injury caused by extraneous objects Cautery MAGR Pre-Care Text: A.240 Assesses baseline skin condition A.40 Verifies presence of prosthetics or corrective devices Im.50 Implements protective measures to prevent injury due to electrical sources Entry 1 ESU Type Electrosurgical Unit Identification [id number] Number ESU Settings Syntegrity Cut Setting 75 Coag Setting 75 Grounding Pad Details Grounding Pad Yes Verified By Marj Sullivan RN Needed? Grounding Pad Site Table Grounding Pad Within Expiration Yes Date? Outcome Met (O.10) Yes Last Modified By: Marj Sullivan RN 09/25/19 10:43:50 Post-Care Text: E.10 Evaluates for signs and symptoms of physical injury to skin and tissue O.10 Patient is free from signs and symptoms of injury related to thermal sources Catheters, Drains & Tubes MAGR Pre-Care Text: A.310 Identifies factors associated with an increased risk for hemorrhage or fluid and electrolyte imbalance Im.250 Administers care to invasive device sites Entry 1 Device Description TRAY URINE METER SIM Location Bladder Balloon Inflation 10 ML Present on Arrival? No Amount Inserted By Marj Sullivan RN Inserted Date/Time 09/25/19 10:05:00 DC'd at End of Case? No Drainage Details Drainage? Yes Drainage System Dependent drainage bag Color Yellow Urinary Catheter Hand Hygiene Performed Outcome Met (O.60) Yes Checklist Before and After Insertion, Aseptic Technique and Sterile Equipment Used, Perineal Area Cleansed Before Insertion, Catheter Properly Secured, Collection Bag Positioned Below Bladder Last Modified By: Marj Sullivan RN 09/25/19 10:53:47 Post-Care Text: E.340 Evaluates tubes and drains are intact and functioning as planned O.60 Patient is free from signs and symptoms of injury caused by extraneous objects Cultures and Specimens MAGR Pre-Care Text: A.350 Assesses susceptibility for infection A.10 Confirms patient identity Im.320 Manages culture specimen collection Im.330 Manages specimen handling and disposition Entry 1 Cultures Ordered No Specimens Ordered Yes Outcome Met (O.40) Yes Last Modified By: Marj Sullivan RN 09/25/19 10:53:54 Post-Care Text: E.40 Evaluates correct processes have been performed for specimen handling and disposition O.40 Patient's specimen(s) is managed in the appropriate manner Medication Administration MAGR Pre-Care Text: A.210 Identifies physiological status Im.220 Administers prescribed medications Entry 1 Time Administered 09/25/19 11:28:00 Medication MARCAINE 0.5% Route of Admin SubQ Volume 20 mL By Mi Licea Outcome Met (O.130) Yes Eduardo BOYD Last Modified By: Marj Sullivan RN 09/25/19 11:31:59 Post-Care Text: E.20 Evaluates response to medications O.130 Patient receives appropriately administered medication(s) Implant Log MAGR Pre-Care Text: A.20 Verifies operative procedure, surgical site, and laterality Im.350 Records implants inserted during the operative or invasive procedure Entry 1 Entry 2 Entry 3 Procedure Arthroplasty Total Arthroplasty Total Arthroplasty Total Hip(Left) Hip(Left) Hip(Left) Implant Action Implant Implant Implant Description DEPUY ACETABULAR LINER DEPUY CANCELLOUS BONE DEPUY CANCELLOUS BONE SCREW SCREW Implant Information Implant/Explant 09/25/19 10:50:00 09/25/19 10:50:00 09/25/19 10:50:00 Date/Time Implanted/Explanted Mi Licea James Huddleston, James By: Eduardo Vallejo DO Size 32MM 50MM 6.5 X 30MM 6.5 X 15MM 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 DEPUY DEPUY DEPUY Catalog # Lot Number [id number] Expiration Date 05/08/24 03/10/29 01/07/29 Serial Number [id number] REF 1217-30-500 REF [id number] Device Identifier Human Readable EDDA Machine Readable EDDA MR Class Implant Usage Data Site Hip L Hip L Hip L Quantity 1 1 1 Reason for Explant Reason Not Retained Explant Disposition Manager Photography Sterility External Indicator Result Internal Indicator Results Outcome Met (O.30) Yes Yes Yes Last Modified By: Marj Sullivan RN, Stephanie RN Sauer, Stephanie RN 09/25/19 13:14:13 09/25/19 13:11:26 08/17/20 13:11:26 Entry 4 Entry 5 Entry 6 Procedure Arthroplasty Total Arthroplasty Total Arthroplasty Total Hip(Left) Hip(Left) Hip(Left) Implant Action Implant Implant Implant Description DEPUY CANCELLOUS BONE DEPUY ACETABULAR SHELL DEPUY APEX HOLE SCREW ELIMINATOR Implant Information Implant/Explant 09/25/19 10:50:00 09/25/19 10:50:00 09/25/19 10:50:00 Date/Time Implanted/Explanted Mi Licea James Huddleston, James By: Eduardo Vallejo DO Eduardo DO Size 6.5 X 15MM 50MM PS 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 DEPUY DEPUY DEPUY Catalog # Lot Number [id number] Expiration Date 11/07/28 04/07/29 04/07/29 Serial Number REF [id number] REF [id number] REF 1246-03-000 Device Identifier Human Readable EDDA Machine Readable EDDA MR Class Implant Usage Data Site Hip L Hip L Hip L Quantity 1 1 1 Reason for Explant Reason Not Retained Explant Disposition Manager Photography Sterility External Indicator Result Internal Indicator Results Outcome Met (O.30) Yes Yes Yes Last Modified By: Marj Sullivan RN, Stephanie RN Sauer, Stephanie RN 09/25/19 13:11:26 09/25/19 13:11:26 09/25/19 13:11:26 Entry 7 Entry 8 Procedure Arthroplasty Total Arthroplasty Total Hip(Left) Hip(Left) Implant Action Implant Implant Description DEPUY FEMORAL STEM DEPUY FEMORAL HEAD CEMENTLESS Implant Information Implant/Explant 09/25/19 10:50:00 09/25/19 10:50:00 Date/Time Implanted/Explanted Mi Licea James By: Eduardo Vallejo DO Size 135 SHORT NECK COLLAR 01/21 TAPER SIZE 11 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 DEPUY DEPWHObyYOU Catalog # Lot Number [id number] Expiration Date 02/08/24 02/08/24 Serial Number REF [id number] REF 1365-22-000 Device Identifier Human Readable EDDA Machine Readable EDDA MR Class Implant Usage Data Site Hip L Hip L Quantity 1 1 Reason for Explant Reason Not Retained Explant Disposition Manager Photography Sterility External Indicator Result Internal Indicator Results Outcome Met (O.30) Yes Yes Last Modified By: LaurieMarj RN, Stephanie RN 09/25/19 13:11:26 09/25/19 13:11:27 Post-Care Text: E.30 Evaluates verification process for correct patient, site, side and level surgery O.30 Patient's procedure is performed on the correct site, side, and level Dressing/Packing MAGR Pre-Care Text: A.350 Assesses susceptibility for infection Im.290 Administer care to wound sites Entry 1 Skin Prep Agent Yes Site Hip Removed Prior to Dressing? Site Details Left Dressing Item Details Dressing Item 4x4's, ABD Tape (Im.290) Foam, Wound Closure (Im.290) Strip Outcome Met Yes Last Modified By: Marj Sullivan RN 09/25/19 11:09:20 Post-Care Text: E.200 Evaluates progress of wound healing O.200 Patient's wound perfusion is consistent with or improved from baseline levels Departure from OR MAGR Entry 1 Present on Depart Oxygen Via Bed Post-op Destination PACU Skin DFO Condition Dry Description Condition Warm Description Report Given To Dionne Yun RN Airway Maintenance Patient Status Stable Oxygen in Use? Yes Airway Device Simple mask Flow Rate 6 Last Modified By: Marj Sullivan RN 09/25/19 12:54:35 Case Comments Finalized By: Violeta Malik RN Document Signatures Signed By: Marj Sullivan RN 09/25/19 13:14 Violeta Malik RN 09/25/19 15:04 Unfinalized History Date/Time Username Reason for Unfinalizing Freetext Reason for Unfinalizing 09/25/19 15:04 MARSHA Modify Pick List [facility] 0 MAGR PACU Record MAGR PACU Record [facility] Physician: Mi Licea DO Finalized Date/Time: 09/25/19 12:53:39 Pt. Name: DELICIA HSU Jean Carlos Shepard/Sex: 1935 FEMALE Med Rec #: [id number] Physician: Mi Licea DO Financial #: [id number] Pt. Type: I Room/Bed: 221/1 Admit/Disch: 09/25/19 06:52:00 - Institution: PACU Case Times MAGR Entry 1 In PACU I 09/25/19 11:50:00 Discharge from PACU 09/25/19 12:40:00 I Last Modified By: Dionne Yun RN 09/25/19 12:53:35 Finalized By: Dionne Yun RN Document Signatures Signed By: Dionne Yun RN 09/25/19 12:[address] [facility] MAGR Preoperative Recordon 0 09-25-2019 MAGR Preoperative Record MAGR Pre-Op Record Summary Primary Physician: Mi Licea DO Finalized Date/Time: 09/25/19 11:58:52 Pt. Name: DELICIA HSU /Sex: 1935 FEMALE Med Rec #: [id number] Physician: Mi Licea DO Financial #: [id number] Pt. Type: I Room/Bed: [facility] Admit/Disch: 09/25/19 06:52:00 - Institution: Pre-Op Case Times MAGR Pre-Care Text: Patient will be optimally prepared for surgery. Patient is free from s/s of injury. Provide information to patient/family related to plan of care. Verify patient allergies. Confirm identity and verify consent before the operative or invasive procedure. Entry 1 Patient Arrival Time 09/25/19 07:30:00 Preop Departure 09/25/19 09:35:00 Last Modified By: Dionne Yun RN 09/25/19 11:58:48 Post-Care Text: Patient is prepared mentally and physically and is ready for surgery. The patient remains free from s/s of injury. Patient/family express understanding of plan of care and participate in decisions affecting his or her perioperrative plan of care. Allergies documented appropriately. Patient identifiers and consent correct. General Comments: Pt arrives to psw ambulatory. Pt denies any pain, Cp, sob, cough or flu like symptoms. Pt denies pacemaker/defibillator, pt has sleep apnea but does not wear cpap. Finalized By: Dionne Yun RN Document Signatures Signed By: Dionne Yun RN 09/25/19 11:[address] [facility] Nutrition Noteon 09-25-2019 Nutrition Note Pt admitted for sche duled Lt total hip sx; placed on a Regular diet as tolerated w/ post op supplements BID along w/ usual vitamin/mineral supplementation. Nutritional supplements adjusted to what's available in house. Per ferryboat helper assessment, Pt reports wt loss of 2-13lb, however, exact amt, time frame and etiology unknown at this time. No wt hx available for past 2-3yrs. Full nutrition assessment completed d/t high risk r/t surgery greater than 65y (Pt is 83y). Will monitor wts, intake and labs. Pts last BM noted as 09/22 and takes metamucil daily at home. Will monitor need for additional fiber/issues w/ constipation. [facility] to offer prunes/prune alfred q am. [facility] 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 Anesthesia: Spinal Indications for surgery: Ongoing pain with progressive loss of function and failure conservative treatment and radiographic findings showing necrotic changes in the femoral head and advancement of arthritis Estimated blood loss: 100 Complications: There were no complications Findings: She had eroded the articular surface off the femoral head and acetabulum and there was an irregular shape to the femoral head. There was no evidence of screw penetration into the joint. 3 cannulated screws well contained within the bone. Procedure summary: Patient was brought to the operative suite she was given a spinal she was then placed in the lateral decubitus position the left hip sterilely prepped and draped in usual fashion. A timeout was taken. Incision was centered over the greater trochanter dissection was carried down through the fascia bradley there was some scarring of the fascia to the underlying soft tissues which was freed up and then a Charnley retractor was placed. The screw heads were identified laterally and just distal to the greater trochanter. All 3 screws were removed. Next the anterior one third of gluteus medius was detached from the greater trochanter and the capsule was incised and the hip was dislocated. The femoral head was oblong in shape with the irregularity but no areas of obvious penetration. The femoral neck was cut with a reciprocating saw and the head was removed. My attention was turned towards the socket. The labrum was excised the central soft tissues were excised and reaming was performed sequentially up to 50. A 50 mm acetabular cup was impacted into place and then further secured with a total of three 6.5 acetabular screws. A 30 mm screw superiorly and 2 15 mm screws posteriorly The central hole was then plugged with a hole eliminator. This was then irrigated and then a 32 x 50 mm liner was clicked into place and checked for integrity. My attention was turned towards the canal. I open the canal with a box osteotome followed by canal finder and then broached sequentially up to size 11. Trial reductions were performed off a size 11 broach and a short neck +5 mm head produced the best soft tissue balance and leg length symmetry with no tendency towards dislocation even at extremes. The trial component was removed and a size 11 collared prosthesis was impacted into place. It was snug and secure. Next a +5 x 32 mm femoral head was impacted over this and the hip was reduced and one more time range of motion was taken to extremes. There was no tendency towards dislocation and the soft tissues appeared to be well balanced. The wound was thoroughly irrigated. The gluteus medius was repaired with a #5 Ethibond suture and then 0 Vicryl sutures. The fascia of the vastus lateralis was closed with 0 Vicryl. The fascia bradley was closed with 0 Vicryl the fat layers were closed with 0 Vicryl and then the subcutaneous layer was closed with 0 Vicryl. Infiltrated the margins of the wound with a total of 20 cc of half percent Marcaine. The skin was closed with a running Quill suture. Steri-Strips were applied sterile dressings were applied. The patient tolerated the procedure well there are no complications she was transported to the recovery room in stable condition [Electronically Signed on: 09/25/2019 11:47 EDT] Mi Licea DO [Verified on: 09/25/2019 11:47 EDT] Mi Licea DO The weightbearing surface implant into the patient was metal on polyethylene [Electronically Signed on: 10/18/2019 21:39 EDT] Mi Licea DO [facility] Pharmacy Noteon 09-25-2019 Pharmacy Note I have personally re viewed the patient's current home medication list including, prescription medications, OTC products, vitamins and supplements. Home medications reviewed upon admission as follows: Active Medications acetaminophen: 650 mg = 2 tab(s), PO, q6hr, PRN: pain, 50 tab(s), 0 Refill(s), Refills: 0 aspirin: 81 mg = 1 tab(s), PO, Daily, 90 tab(s), 0 Refill(s), Refills: 0 budesonide: 9 mg = 3 cap(s), PO, Daily, 0 Refill(s), Refills: 0 cholecalciferol: 1 tab(s), PO, Daily, 0 Refill(s), Refills: 0 ferrous sulfate: 325 mg = 1 tab(s), PO, Daily, 30 tab(s), 0 Refill(s), Refills: 0 melatonin: 5 mg = 1 tab(s), PO, Once a day (at bedtime), PRN: for insomnia, 60 tab(s), 0 Refill(s), Refills: 0 metoprolol: 50 mg = 1 tab(s), PO, Daily, 30 tab(s), 0 Refill(s), Refills: 0 psyllium: 3.4 gm, PO, TID, PRN: for constipation, 425 gm, 0 Refill(s), Refills: 0 simvastatin: 40 mg = 1 tab(s), PO, Once a day (at bedtime), 30 tab(s), 0 Refill(s), Refills: 0 spironolactone: 25 mg = 1 tab(s), PO, Daily, 30 tab(s), 0 Refill(s), Refills: 0 traMADol: 50 mg = 1 tab(s), PO, q6hr, PRN: as needed for pain, 0 Refill(s), Refills: 0 trolamine salicylate topical: 1 bri, TOP, QID, PRN: for pain, 120 gm, 0 Refill(s), Refills: 0 Status of medication History: Complete Source of information: Pharmacy Recordspatient Changes Made: - Medications Added to List: - Medications Held at Admission: - Medications Modified: - Medications Removed from List: state reason (i.e. no longer taking, strength change, etc) alendronate [Electronically Signed on: 09/25/2019 13:26 EDT] Virgie Santos [Verified on: 09/25/2019 13:26 EDT] Virgie Santos [facility] Pharmacy Note I have personally re viewed the patient's current home medication list including, prescription medications, OTC products, vitamins and supplements. Home medications reviewed upon admission as follows: Active Medications acetaminophen: 650 mg = 2 tab(s), PO, q6hr, PRN: pain, 50 tab(s), 0 Refill(s), Refills: 0 alendronate: 70 mg = 1 tab(s), PO, qWeek, 12 tab(s), 0 Refill(s), Refills: 0 aspirin: 81 mg = 1 tab(s), PO, Daily, 90 tab(s), 0 Refill(s), Refills: 0 budesonide: 1 tab(s), PO, Daily, 0 Refill(s), Refills: 0 cholecalciferol: 1 tab(s), PO, Daily, 0 Refill(s), Refills: 0 ferrous sulfate: 325 mg = 1 tab(s), PO, Daily, 30 tab(s), 0 Refill(s), Refills: 0 melatonin: 5 mg = 1 tab(s), PO, Once a day (at bedtime), PRN: for insomnia, 60 tab(s), 0 Refill(s), Refills: 0 metoprolol: 50 mg = 1 tab(s), PO, Daily, 30 tab(s), 0 Refill(s), Refills: 0 psyllium: 3.4 gm, PO, TID, PRN: for constipation, 425 gm, 0 Refill(s), Refills: 0 simvastatin: 40 mg = 1 tab(s), PO, Once a day (at bedtime), 30 tab(s), 0 Refill(s), Refills: 0 spironolactone: 25 mg = 1 tab(s), PO, Daily, 30 tab(s), 0 Refill(s), Refills: 0 traMADol: 50 mg = 1 tab(s), PO, q6hr, PRN: as needed for pain, 0 Refill(s), Refills: 0 trolamine salicylate topical: 1 bri, TOP, QID, PRN: for pain, 120 gm, 0 Refill(s), Refills: 0 Status of Medication History: Incomplete Source of Information: Pharmacy Records Changes Made: - Medications Added to List: NONE - Medications Modified: BUDESONIDE - CHANGED TO 3C PO QD - Medications Removed from List: state reason (i.e. no longer taking, strength change, etc) NONE Other Comments: [Electronically Signed on: 09/25/2019 13:04 EDT] Marj Mccall [Verified on: 09/25/2019 13:04 EDT] Marj Mccall [facility] Progress Note - Nurseon 08-1 TSH Qn Pt states that she i s having pain in her lt hip and neck #8 on the scale. Pt also complains of freezing . Temp 97.8. Pt given a warm blanket and medicated with Morphine 2mg IVP as ordered. [Electronically Signed on: 09/25/2019 19:48 EDT] Indy Vidal RN [Verified on: 09/25/2019 19:48 EDT] Indy Vidal RN [facility] Progress Note - Nurse Complaining of cramping in left great toe, states this happens often et takes one tablespoon pickle juice for same. Pickle juice taken with minimal relief. Began to c/o severe cramping in left groin. Crying out, unable to get comfortable despite intervention to help. Medicated with Oxycodone two tablets. Dr. Licea notified et Morphine 2 mg. IV adm.. PT assisted pt. with massage, ice to site et weight bearing as beth to ease cramping followed by assist into chair. Pt. began to obtain relief after interventions. Respirations regular et non-labored. Medicated again at 1800 for onset of left groin cramping. [Electronically Signed on: 09/25/2019 19:51 EDT] Twila Cruz RN [Verified on: 09/25/2019 19:51 EDT] Twila Cruz RN [facility] UA Tsyad0ue 09-25-2019 RBC (U) [#/Vol] 0-[address] [facility] Comment on above: Order Comment: Urina lysis Microscopic order added on by Discern Expert Rules system. Performed By: #### 7 [id number], [id number], [id number] #### [facility] (DEFAULT) [address] [place] [address] UA Bacteria 4+ [facility] Comment on above: Order Comment: Urina lysis Microscopic order added on by Discern Expert Rules system. Performed By: #### 7 [id number], [id number], [id number] #### [facility] (DEFAULT) [address] [place] [address] UA Squam Epi Rare [facility] Comment on above: Order Comment: Urina lysis Microscopic order added on by Discern Expert Rules system. Performed By: #### 7 [id number], [id number], [id number] #### [facility] (DEFAULT) [address] [place] [address] UA WBC 0-[address] [facility] Comment on above: Order Comment: Urina lysis Microscopic order added on by Gear6 Expert Rules system. Performed By: #### 7 [id number], [id number], [id number] #### [facility] (DEFAULT) [address] [place] [address] UA w Culture if Ind Standard on 09-25-2019 Breakpoint UA [facility] Comment on above: Order Comment: sim insert Performed By: #### 7 [id number], [id number], [id number] #### [facility] (DEFAULT) [address] [place] [address] Color (U) Yellow [facility] Comment on above: Order Comment: sim insert Performed By: #### 7 [id number], [id number], [id number] #### [facility] (DEFAULT) [address] [place] [address] Culture? Indicated [place] Comment on above: Order Comment: sim insert Performed By: #### 7 [id number], [id number], [id number] #### [facility] (DEFAULT) [address] [place] [address] Glucose (U) [Mass/Vol] Negative [facility] Comment on above: Order Comment: sim insert Performed By: #### 7 [id number], [id number], [id number] #### [facility] (DEFAULT) [address] [place] [address] Ketones Ql (U) Negative Normal [place] Comment on above: Order Comment: sim insert Performed By: #### 7 [id number], [id number], [id number] #### [facility] (DEFAULT) [address] [place] [address] 57049 Micro? Indicated [place] Comment on above: Order Comment: sim insert Performed By: #### 7 [id number], [id number], [id number] #### [facility] (DEFAULT) [address] [place] [address] 07890 UA Bilirubin Negative Normal [place] Comment on above: Order Comment: sim insert Performed By: #### 7 [id number], [id number], [id number] #### [facility] (DEFAULT) [address] [place] [address] 57674 UA Blood Negative Normal NEGATIVE [place] Comment on above: Order Comment: sim insert Performed By: #### 7 [id number], [id number], [id number] #### [facility] (DEFAULT) [address] [place] [address] UA Clarity CLEAR Normal CLEAR [place] Comment on above: Order Comment: sim insert Performed By: #### 7 [id number], [id number], [id number] #### [facility] (DEFAULT) [address] [place] [address] 82689 UA Leuk Est SMALL Abnormal NEGATIVE [place] Comment on above: Order Comment: sim insert Performed By: #### 7 [id number], [id number], [id number] #### [facility] (DEFAULT) [address] [place] [address] 90871 UA Nitrite Positive Abnormal NEGATIVE [place] Comment on above: Order Comment: sim insert Performed By: #### 7 [id number], [id number], [id number] #### [facility] (DEFAULT) [address] [place] [address] 84553 UA pH 7.0 Normal 5-8 [place] Comment on above: Order Comment: sim insert Performed By: #### 7 [id number], [id number], [id number] #### [facility] (DEFAULT) [address] [place] [address], [place] [address] UA Protein Negative Normal NEGATIVE [place] Comment on above: Order Comment: sim insert Performed By: #### 7 [id number], [id number], [id number] #### [facility] (DEFAULT) [address] [place] [address]102 UA Spec Grav 1.020 Normal 1.001-1.03 5 [place] Comment on above: Order Comment: sim insert Performed By: #### 7 [id number], [id number], [id number] #### [facility] (DEFAULT) [address] [place] [address] UA Urobilinogen 0.2 mg/dL Normal 0.2-1.0 [place] Comment on above: Order Comment: sim insert Performed By: #### 7 [id number], [id number], [id number] #### [facility] (DEFAULT) [address] [place] [address] 39814 Urine Source Clean Catch Normal [place] Comment on above: Order Comment: sim insert Performed By: #### 7 [id number], [id number], [id number] #### [facility] (DEFAULT) [address] [place] [address] 24842 XR Hip Complete Lefton 09-24 XR Hip Complete Left EXAM: XR HIP COMPLETE LEFT HISTORY: Status post left hip. COMPARISON: Left hip study dated 04/19/2019. TECHNIQUE: 3 views of the left hip were obtained with portable technique at 12:11 PM. FINDINGS: There is left hip prosthesis which appears unremarkably positioned. Soft tissue swelling and air noted primarily laterally, compatible with recent surgery. Postoperative clips are seen in the upper thigh region medially which were noted previously. No definite acute fracture or dislocation. IMPRESSION: Left hip study demonstrates grossly unremarkable post arthroplasty changes as described. Follow up as needed. Final Dictated by: Bandar Oneill MD Dictated DT/TM: 09/25/19 2:34 Signed (Electronic Signature): Bandar Oneill MD 09/25/19 3:55 pm Technologist: OCHOA NAZARIO [facility] Patient Handouton 09-24-2019 Patient Handout [facility] Progress Note - Nurseon 09-08 Progress Note - Nurse Spoke with pt regarding arrival time of 0700 and NPO status. Verbalized understanding. [Electronically Signed on: 09/22/2019 09:47 EDT] Kimberley Holden RN [Verified on: 09/22/2019 09:47 EDT] Kimberley Holden RN [facility] SARS-CoV-2 (COVID-19) PCRon 09-22-2019 COVID-19 PCR Not Detected Normal Not Detected [place] Comment on above: Performed By: #### 7 [id number], [id number], [id number] #### [facility] (DEFAULT) [address] [place] [address] Employed in healthcare? Unknown [place] Comment on above: Performed By: #### 7 [id number], [id number], [id number] #### [facility] (DEFAULT) [address] [place] [address] Group care resident? [facility] Comment on above: Performed By: #### 7 [id number], [id number], [id number] #### [facility] (DEFAULT) [address] [place] [address] Hospitalized due to COVID-19? Unknown [place] Comment on above: Performed By: #### 7 [id number], [id number], [id number] #### [facility] (DEFAULT) [address] [place] [address] In ICU? Unknown [place] Comment on above: Performed By: #### 7 [id number], [id number], [id number] #### [facility] (DEFAULT) [address] [place] [address] status? Unknown [facility] Comment on above: Performed By: #### 7 [id number], [id number], [id number] #### [facility] (DEFAULT) [address] [place] [address] Symptomatic as defined by CDC? Unknown [place] Comment on above: Performed By: #### 7 [id number], [id number], [id number] #### [facility] (DEFAULT) [address] [place] [address] Coding Summaryon 09-13-2019 Coding Summary CODING DATE: [facility] STATUS: Home PAYOR: Medicare APC DESCRIPTION 5733 Level 3 Minor Procedures ADMIT DX: REASON FOR VISIT DX: Z01.818 Encounter for other preprocedural examination I10 Essential (primary) hypertension I25.10 Atherosclerotic heart disease of [place] coronary artery without angina pectoris FINAL DX: PRINCIPAL: Z01.818 Encounter for other preprocedural examination SECONDARY: I10 Essential (primary) hypertension I25.10 Atherosclerotic heart disease of [place] coronary artery without angina pectoris K21.9 Gastro-esophageal reflux disease without esophagitis R33.9 Retention of urine, unspecified PYMT PROC APC STAT DESCRIPTION DOCTOR NAME DATE NOTE: The code number assigned matches the documented diagnosis and / or procedure in the patient's chart. However, the narrative phrase printed from the coding software may appear abbreviated, or result in slightly different terminology. Coded By: Marisela Lawrence Date Saved: 09/13/2019 09:[address] [facility] Coding Summaryon 09-06-2019 Coding Summary CODING DATE: [facility] STATUS: Home PAYOR: Medicare APC DESCRIPTION 5733 Level 3 Minor Procedures ADMIT DX: REASON FOR VISIT DX: Z01.818 Encounter for other preprocedural examination I10 Essential (primary) hypertension I25.10 Atherosclerotic heart disease of [place] coronary artery without angina pectoris FINAL DX: PRINCIPAL: Z01.818 Encounter for other preprocedural examination SECONDARY: I10 Essential (primary) hypertension I25.10 Atherosclerotic heart disease of [place] coronary artery without angina pectoris K21.9 Gastro-esophageal reflux disease without esophagitis PYMT PROC APC STAT DESCRIPTION DOCTOR NAME DATE NOTE: The code number assigned matches the documented diagnosis and / or procedure in the patient's chart. However, the narrative phrase printed from the coding software may appear abbreviated, or result in slightly different terminology. Coded By: Marisela Lawrence Date Saved: 09/06/2019 09:[address] [facility] Progress Note - Nurseon 08-09 Progress Note - Nurse chart reviewed per Dr Akbar anesthesiologist, and cleared for surgery on 09/25/2019 [Electronically Signed on: 09/04/2019 14:30 EDT] Nimco Albarado RN [Verified on: 09/04/2019 14:30 EDT] Nimco Albarado RN [facility] Progress Note - Nurse Xin at Dr Licea notified that pt has positive urine culture. [Electronically Signed on: 09/04/2019 13:37 EDT] Dionne Yun RN [Verified on: 09/04/2019 13:37 EDT] Dionne Yun RN [facility] Provider Orderson 09-04-2019 Provider Orders [id number] [facility] C Urineon 09-03-2019 C Urine Urine Culture ordere d as a result of parameters set on specific urine dip and urine microsopic results. >100,000 cfu/ml Escherichia coli ORGANISM EC SUSCEPTIBILITY ORGANISM ID: 1 ANTIBIOTIC INTERPRETATION JODY STATUS ORGANISM ECEC Amik S <=16 Verified Amox/Cla S <=8/4 Verified Amp S <=8 Verified Amp/Sul S <=8/4 Verified Azt S <=4 Verified Cefaz S <=2 Verified Cefep S <=8 Verified Cefo S <=2 Verified Ceftaz S <=1 Verified Ceftri S <=1 Verified Cefur I 16 Verified Ceph I 16 Verified Cipro S <=1 Verified Ertap S <=0.5 Verified Gent S <=2 Verified Imi S <=1 Verified Levo S <=2 Verified Nitro S <=32 Verified Pip/Moy S <=16 Verified Tetra S <=4 Verified Tobra S <=4 Verified Tri/Sulf S <=2/38 Verified Normal [place] Comment on above: Performed By: #### 1 [id number], [id number], [id number] #### [facility] (DEFAULT) [address] [place] [address] C MRSA Screenon 09-02-2019 C MRSA Screen Negative Normal [place] Comment on above: Performed By: #### 1 [id number] #### [facility] (DEFAULT) [address] [place] [address] .Auto Diff 1on 09-01-2019 Auto [place] % 10 % Normal 1-12 [place] Comment on above: Performed By: #### 7 [id number], [id number], [id number] #### [facility] (DEFAULT) [address] [place] [address] 84979 Baso Abs# 0.0 x10 Normal 0.0-0.2 [place] Comment on above: Performed By: #### 7 [id number], [id number], [id number] #### [facility] (DEFAULT) [address] [place] [address] Basophils/100 WBC (Bld) 0.3 % Normal 0.2-2.0 [place] Comment on above: Performed By: #### 7 [id number], [id number], [id number] #### [facility] (DEFAULT) [address] [place] [address] Eos Abs# 0.1 x10 Normal 0.0-0.4 [place] Comment on above: Performed By: #### 7 [id number], [id number], [id number] #### [facility] (DEFAULT) [address] [place] [address] 33950 Eosinophils/100 WBC (Bld) 0.9 % Normal 0.9-4.0 [place] Comment on above: Performed By: #### 7 849592, [id number], [id number] #### [facility] (DEFAULT) [address] [place] [address] 00431 Lymphocytes (Bld) [#/Vol] 1.0 x10 Low 1.3-2.9 [place] Comment on above: Performed By: #### 7 108698, [id number], [id number] #### [facility] (DEFAULT) [address] [place] [address] 73192 Lymphocytes/100 WBC (Bld) 10 % Low 14-48 [place] Comment on above: Performed By: #### 7 [id number], [id number], [id number] #### [facility] (DEFAULT) [address] [place] [address] 77366 [place] Abs# 1.0 x10 High 0.0-0.8 [place] Comment on above: Performed By: #### 7 [id number], [id number], [id number] #### [facility] (DEFAULT) [address] [place] [address] 30431 Neut Abs# 8.0 x10 Normal 1.5-9.2 [place] Comment on above: Performed By: #### 7 880786, [id number], [id number] #### [facility] (DEFAULT) [address] [place] [address] 68876 Neutrophils/100 WBC (Bld) 79 % Normal 44-88 [place] Comment on above: Performed By: #### 7 602159, [id number], [id number] #### [facility] (DEFAULT) [address] [place] [address] 17352 BMP Standardon 09-01-2019 eGFR Non AA 44 mL/min/1.73m2 [facility] Comment on above: Performed By: #### 7 993004, [id number], [id number] #### [facility] (DEFAULT) [address] [place] [address] 03441 eGFR AA 54 mL/min/1.73m2 [place] Comment on above: Result Comment: Drier Operator Helper kody Kidney disease could be indicated at eGFRs of less than 60 ml/min/1.73m2. Kidney Failure is indicated at less than 15 ml/min/1.73m2 Performed By: #### 7 [id number], [id number], [id number] #### [facility] (DEFAULT) [address] [place] [address] 43101 Anion gap [Moles/Vol] 15.0 mmol/L Normal 5.0-19.0 [place] Comment on above: Performed By: #### 7 [id number], [id number], [id number] #### [facility] (DEFAULT) [address] [place] [address] 21796 Calcium [Mass/Vol] 9.2 mg/dL Normal 8.9-10.3 [facility] Comment on above: Performed By: #### 7 [id number], [id number], [id number] #### [facility] (DEFAULT) [address] [place] [address] 93485 Chloride [Moles/Vol] 101 mmol/L Normal 101-111 [place] Comment on above: Performed By: #### 7 [id number], [id number], [id number] #### [facility] (DEFAULT) [address] [place] [address] 48979 CO2 [Moles/Vol] 25 mmol/L Normal 21-32 [place] Comment on above: Performed By: #### 7 041076, [id number], [id number] #### [facility] (DEFAULT) [address] [place] [address] 44301 Creatinine [Mass/Vol] 1.17 mg/dL Normal 0.60-1.30 [place] Comment on above: Performed By: #### 7 585054, [id number], [id number] #### [facility] (DEFAULT) [address] [place] [address] 21551 Glucose [Mass/Vol] 94.0 mg/dL Normal 74.0-118.0 [facility] Comment on above: Performed By: #### 7 [id number], [id number], [id number] #### [facility] (DEFAULT) [address] [place] [address] 66554 Osmolality [Osmolality] 276 mOsm/L [place] Comment on above: Performed By: #### 7 [id number], [id number], [id number] #### [facility] (DEFAULT) [address] [place] [address] 80483 Potassium [Moles/Vol] 4.0 mmol/L Normal 3.6-5.1 [place] Comment on above: Performed By: #### 7 [id number], [id number], [id number] #### [facility] (DEFAULT) [address] [place] [address] 43383 Sodium [Moles/Vol] 137.0 mmol/L Normal 136.0-144 . 0 [place] Comment on above: Performed By: #### 7 [id number], [id number], [id number] #### [facility] (DEFAULT) [address] [place] [address] Urea nitrogen [Mass/Vol] 20 mg/dL Normal 8-26 [place] Comment on above: Performed By: #### 7 [id number], [id number], [id number] #### [facility] (DEFAULT) [address] [place] [address] 67313 Urea nitrogen/Creatinine [Mass ratio] 17.0 mg/mg High 4.6-16.2 [place] Comment on above: Performed By: #### 7 [id number], [id number], [id number] #### [facility] (DEFAULT) [address] [place] [address] 22203 CBC w/ Auto Diffon 0 Erythrocyte distribution width (RBC) [Ratio] 13.9 % Normal 11.5-15.0 [place] Comment on above: Performed By: #### 7 [id number], [id number], [id number] #### [facility] (DEFAULT) [address] [place] [address] Hematocrit (Bld) [Volume fraction] 38.5 % Normal 33.7-40.4 [place] Comment on above: Performed By: #### 7 [id number], [id number], [id number] #### [facility] (DEFAULT) [address] [place] [address] 81483 Hemoglobin (Bld) [Mass/Vol] 12.6 g/dL Normal 11.3-15.9 [place] Comment on above: Performed By: #### 7 [id number], [id number], [id number] #### [facility] (DEFAULT) [address] [place] [address] 98915 Man Diff? Auto Normal [place] Comment on above: Performed By: #### 7 [id number], [id number], [id number] #### [facility] (DEFAULT) [address] [place] [address] 21160 MCH (RBC) [Entitic mass] 33 pg Normal 24-34 [place] Comment on above: Performed By: #### 7 614774, [id number], [id number] #### [facility] (DEFAULT) [address] [place] [address] 35225 MCHC (RBC) [Mass/Vol] 33 g/dL Normal 26-37 [place] Comment on above: Performed By: #### 7 [id number], [id number], [id number] #### [facility] (DEFAULT) [address] [place] [address] 94929 MCV (RBC) [Entitic vol] 101 fL High 81-100 [place] Comment on above: Performed By: #### 7 [id number], [id number], [id number] #### [facility] (DEFAULT) [address] [place] [address] 96352 Platelet mean volume (Bld) [Entitic vol] 9.5 fL Normal 6.3-10.2 [place] Comment on above: Performed By: #### 7 [id number], [id number], [id number] #### [facility] (DEFAULT) [address] [place] [address] 58254 Platelets (Bld) [#/Vol] 292 x10 Normal 138-427 [place] Comment on above: Performed By: #### 7 [id number], [id number], [id number] #### [facility] (DEFAULT) [address] [place] [address] RBC (Bld) [#/Vol] 3.82 x10 Normal 3.70-5.30 [facility] Comment on above: Performed By: #### 7 812931, [id number], [id number] #### [facility] (DEFAULT) [address] [place] [address] WBC (Bld) [#/Vol] 10.1 x10 Normal 3.5-10.5 [facility] Comment on above: Performed By: #### 7 934199, [id number], [id number] #### [facility] (DEFAULT) [address] [place] [address] UA Ogwtj7se 09-01-2019 RBC (U) [#/Vol] None Seen [facility] Comment on above: Order Comment: Urina lysis Microscopic order added on by Discern Expert Rules system. Performed By: #### 1 [id number], [id number], [id number] #### [facility] (DEFAULT) [address] [place] [address] UA Amorph. 1+ [facility] Comment on above: Order Comment: Urina lysis Microscopic order added on by Gear[employer] Expert Rules system. Performed By: #### 1 [id number], [id number], [id number] #### [facility] (DEFAULT) [address] [place] [address] UA Bacteria 4+ Normal [place] Comment on above: Order Comment: Urina lysis Microscopic order added on by Discern Expert Rules system. Performed By: #### 1 [id number], [id number], [id number] #### [facility] (DEFAULT) [address] [place] [address] UA Squam Epi Moderate Normal [place] Comment on above: Order Comment: Urina lysis Microscopic order added on by Discern Expert Rules system. Performed By: #### 1 [id number], [id number], [id number] #### [facility] (DEFAULT) [address] [place] [address] 81106 UA WBC 15-20 Normal [place] Comment on above: Order Comment: Urina lysis Microscopic order added on by Discern Expert Rules system. Performed By: #### 1 [id number], [id number], [id number] #### [facility] (DEFAULT) [address] [place] [address] 08974 UA w Culture if Ind Standard on 09-01-2019 Breakpoint UA [facility] Comment on above: Performed By: #### 1 [id number], [id number], [id number] #### [facility] (DEFAULT) [address] [place] [address] 86404 Color (U) Yellow [facility] Comment on above: Performed By: #### 1 [id number], [id number], [id number] #### [facility] (DEFAULT) [address] [place] [address] Culture? Yes Normal [place] Comment on above: Performed By: #### 1 [id number], [id number], [id number] #### [facility] (DEFAULT) [address] [place] [address] 62510 Glucose (U) [Mass/Vol] Negative [facility] Comment on above: Performed By: #### 1 [id number], [id number], [id number] #### [facility] (DEFAULT) [address] [place] [address] 64233 Ketones Ql (U) Negative [facility] Comment on above: Performed By: #### 1 [id number], [id number], [id number] #### [facility] (DEFAULT) [address] [place] [address] 72701 Micro? Indicated [place] Comment on above: Performed By: #### 1 [id number], [id number], [id number] #### [facility] (DEFAULT) [address] [place] [address] 38111 UA Bilirubin Negative Normal [place] Comment on above: Performed By: #### 1 [id number], [id number], [id number] #### [facility] (DEFAULT) [address] [place] [address] 95637 UA Blood TRACE Abnormal NEGATIVE [place] Comment on above: Performed By: #### 1 [id number], [id number], [id number] #### [facility] (DEFAULT) [address] [place] [address] 13939 UA Clarity CLEAR Normal CLEAR [place] Comment on above: Performed By: #### 1 [id number], [id number], [id number] #### [facility] (DEFAULT) [address] [place] [address] 24052 UA Leuk Est MODERATE Abnormal NEGATIVE [place] Comment on above: Performed By: #### 1 [id number], [id number], [id number] #### [facility] (DEFAULT) [address] [place] [address] 23422 UA Nitrite Positive Abnormal NEGATIVE [place] Comment on above: Performed By: #### 1 [id number], [id number], [id number] #### [facility] (DEFAULT) [address] [place] [address] 36983 UA pH 5.5 Normal 5-8 [place] Comment on above: Performed By: #### 1 [id number], [id number], [id number] #### [facility] (DEFAULT) [address] [place] [address] 41945 UA Protein Negative Normal NEGATIVE [place] Comment on above: Performed By: #### 1 [id number], [id number], [id number] #### [facility] (DEFAULT) [address] [place] [address] 39562 UA Spec Grav 1.025 Normal 1.001-1.03 5 [place] Comment on above: Performed By: #### 1 [id number], [id number], [id number] #### [facility] (DEFAULT) [address] [place] [address] 65604 UA Urobilinogen 0.2 mg/dL Normal 0.2-1.0 [place] Comment on above: Performed By: #### 1 [id number], [id number], [id number] #### [facility] (DEFAULT) [address] [place] [address] 61819 Urine Source Clean Catch Normal [place] Comment on above: Performed By: #### 1 [id number], [id number], [id number] #### [facility] (DEFAULT) [address] [place] [address] 31982 JOINT PAIN INJECTIONon 09-06 JOINT PAIN INJECTION [facility] Department of Radiology [address] [place] [address] Patient Name: DELICIA HSU : 1935 Sex: F Age: Race: White Pt. Location: Patient Status: D Ordered Date: 08/08/2018 3:50:00 PM Completed Date: 09/06/2018 03:43 PM Requesting Provider: HERMELINDO HILLMAN Attending Provider: HERMELINDO HILLMAN Report Copy To: GYPSY MCMAHON Signs & Symptoms: M16.12 Unilateral primary osteoarthritis, left hip I10 History: [place] Comments: , Dr. Ochoa , Body Part: Hip , Side: LEFT , Dr. Ochoa , Body Part: Hip , Side: LEFT , , , Ordering Provider - HERMELINDO HILLMAN MD , Exam: JOINT PAIN INJECTION LEFT HIP -JOINT PAIN INJECTION 09/06/2018 3:46 PM EDT SIGNS AND SYMPTOMS: M16.12 Unilateral primary osteoarthritis, left hip I10 TECHNOLOGIST COMMENTS: Dr. Ochoa used 1 sec of fluoro time for a left hip pain injection. patient complains of left hip pain. QUESTION FOR THE RADIOLOGIST: , Dr. Ochoa , Body Part: Hip , Side: LEFT , Dr. Ochoa , Body Part: Hip , Side: LEFT , , , Ordering Provider - HERMELINDO HILLMAN MD , TECHNIQUE: Therapeutic injection of the LEFT HIP under fluoroscopic guidance. Procedure and Findings: Risks, benefits, indications, and alternatives to the procedure were explained to the patient. Risks include bleeding and infection. All questions were answered. Both written and verbal informed consent was obtained. Patient was placed in the supine, slightly oblique position on the fluoroscopic table. Suitable site, at the appropriate area of interest, was marked using fluoroscopic guidance and overlying skin prepped and draped in usual sterile fashion. Lidocaine 1% was used for local and deep anesthesia. A 22-gauge 3-1/2 inch spinal needle was advanced under fluoroscopic guidance. Final intracapsular location was confirmed with injection of a small amount of air. Next, Kenalog 1 cc (40 mg) and Lidocaine 1% 5 cc were injected without complication. Needle was removed and a sterile bandage applied. Patient tolerated the procedure well. Fluoroscopy time: minutes. IMPRESSION: Successful LEFT hip steroid injection under fluoroscopic guidance. Electronically signed by:Christy Ochoa. Transcribed by: [email or web address], User Resident: Electronically Signed by: CHRISTY OCHOA @ 09/09/2018 05:57 PM Normal [facility] Comment on above: Order Comment: , Dr. Ochoa , Body Part: Hip , Side: LEFT , Dr. Ochoa , Body Part: Hip , Side: LEFT , , , Ordering Provider - HERMELINDO HILLMAN MD , CT 3D LOWER EXTREMITY WO CON TRAST LEFTon 08-02-2018 CT 3D LOWER EXTREMITY WO CONTRAST LEFT [facility] Department of Radiology [address] [place] [id number] Patient Name: DELICIA HSU : 1935 Sex: F Age: Race: White Pt. Location: 84 Patient Status: D Ordered Date: 07/22/2018 9:55:00 AM Completed Date: 08/02/2018 09:41 AM Requesting Provider: MIRTHA VELÁSQUEZ Attending Provider: MIRTHA VELÁSQUEZ Report Copy To: GYPSY MCMAHON Signs & Symptoms: S72.045D Nondisp fx of base of nk of l femr, 7thD I10 History: [place], PHONE:[phone] OR [phone],*NEEDS ORTHO F/U APPT. MEDICARE NO PC REQ JY Comments: , Evaluate left hip healing Exam: CT 3D LOWER EXTREMITY WO CONTRAST LEFT Addendum Begins Please note a misprint in the impression below. It says screw fixation of impacted offset humeral neck fracture shows good healing. This should read screw fixation of impacted offset femoral neck fracture shows good healing. Electronically signed by:Coy Jerome. Addendum Ends CT 3D LOWER EXTREMITY WO CONTRAST LEFT 08/02/2018 9:41 AM EDT SIGNS AND SYMPTOMS: S72.045D Nondisp fx of base of nk of l femr, 7thD I10 TECHNOLOGIST COMMENTS:lt hip pain follow up fracture QUESTION FOR THE RADIOLOGIST: , Evaluate left hip healing PROTOCOL: Axial CT images of the extremity were obtained without IV contrast. TECHNIQUE: Multidetector CT axial slices of the left hip were obtained without IV contrast. Multiplanar reformats, MIP, volume rendered 3-D images were generated on a separate workstation and reviewed to further define anatomy and possible pathology. COMPARISON: None. FINDINGS: Skeleton: Screw fixation of impacted left femoral neck fracture is healing in slightly impacted and offset alignment. Hip joints bilaterally show osteoarthritis with superolateral joint space loss and likely chronic labral pathology. Joint cavities bilaterally show relatively small effusions. Skeleton diffusely is osteoporotic with some degenerative changes along the SI joints and symphysis pubis. Moderate bilateral knee arthritis. Muscles: Intact. Tendons: Intact. Neurovascular structures: Extensive peripheral vascular calcification. IMPRESSION: 1. Screw fixation of impacted offset humeral neck fracture shows good healing. There is no AVN but there is some weightbearing contour flattening. 2. Bilateral moderately severe hip osteoarthritis. 3. Moderate bilateral knee arthritis. Electronically signed by:Coy Jerome. Transcribed by: [email or web address], User Resident: Electronically Signed by: COY JEROME @ 08/08/2018 02:20 PM Normal [facility] Comment on above: Order Comment: , Jessie perkins left hip healing HIP LEFT 1 OR 2 VWS WITH PEL VISon 03-18-2018 HIP LEFT 1 OR 2 VWS WITH PELVIS [facility] Department of Radiology [address] [place] [id number] Patient Name: DELICIA HSU : 1935 Sex: F Age: Race: White Pt. Location: Patient Status: Ordered Date: 03/18/2018 1:20:00 PM Completed Date: 03/18/2018 01:54 PM Requesting Provider: MIRTHA VELÁSQUEZ Attending Provider: Report Copy To: Signs & Symptoms: S72.045D Nondisp fx of base of nk of l femr, 7thD I10 History: [place] Comments: , , , Ordering Provider - MIRTHA VELÁSQUEZ PA-C , Exam: HIP LEFT 1 OR 2 VWS WITH PELVIS HIP LEFT 1 OR 2 VWS WITH PELVIS 03/18/2018 1:54 PM EST SIGNS AND SYMPTOMS: S72.045D Nondisp fx of base of nk of l femr, 7thD I10 TECHNOLOGIST COMMENTS: History of left hip surgery 06/04/2017. Ortho follow up. QUESTION FOR THE RADIOLOGIST: , , , Ordering Provider - MIRTHA VELÁSQUEZ PA-C , PROTOCOL: AP(PA) and Lateral views were obtained. COMPARISON: January 10, 2018 FINDINGS: Soft tissues: No change Bones: No change Joints: No change IMPRESSION: Left femoral neck fracture with screw fixation superimposed upon senescent and degenerative skeleton similar to prior study Electronically signed by:Coy Jerome. Transcribed by: [email or web address], User Resident: Electronically Signed by: COY JEROME @ 03/18/2018 02:19 PM Normal [facility] Comment on above: Order Comment: , , = ========= , Ordering Provider - MIRTHA VELÁSQUEZ PA-C , HIP LEFT 1 OR 2 VWS WITH PEL VISon 01-10-2018 HIP LEFT 1 OR 2 VWS WITH PELVIS [facility] Department of Radiology [address] [place] [id number] Patient Name: DELICIA HSU : 1935 Sex: F Age: Race: White Pt. Location: 84 Patient Status: Ordered Date: 01/10/2018 1:10:00 PM Completed Date: 01/10/2018 01:10 PM Requesting Provider: MIRTHA VELÁSQUEZ Attending Provider: Report Copy To: Signs & Symptoms: S72.045D Nondisp fx of base of nk of l femr, 7thD I10 History: [place] Comments: , Views (X-RAY, HIP): Radiologic Protocol , Views (X-RAY, HIP): Radiologic Protocol , , , Ordering Rebeka MORENO-C , Exam: HIP LEFT 1 OR 2 VWS WITH PELVIS HIP LEFT 1 OR 2 VWS WITH PELVIS 01/10/2018 1:10 PM EST SIGNS AND SYMPTOMS: S72.045D Nondisp fx of base of nk of l femr, 7thD I10 TECHNOLOGIST COMMENTS: left hip surgery 05/04/17 pain in left hip QUESTION FOR THE RADIOLOGIST: , Views (X-RAY, HIP): Radiologic Protocol , Views (X-RAY, HIP): Radiologic Protocol , , , Ordering Provider - MIRTHA VELÁSQUEZ PA-C , PROTOCOL: AP(PA) and Lateral views were obtained. COMPARISON: November 01, 2017 FINDINGS: Soft tissues: Basilar calcifications are seen in the aorta and iliac vessels. Calcified phlebolith in the pelvis and vascular calcifications in the femoral arteries bilaterally. Metallic clips in the pelvis from prior surgery. Nonobstructive bowel gas pattern. Bones: Intact pelvic bony ring with 3 screws again seen transfixing the left femoral neck without hardware complications or change in alignment. Joints: Bony spurring in the hip joints bilaterally suggesting degenerative arthritis. Lower lumbar spondylosis. Metallic clips in the left upper medial thigh possibly from prior vascular surgery, unchanged IMPRESSION: 1. Hardware fixation for left femoral neck without complications or change in alignment. 2. Bilateral degenerative hip arthritis. Electronically signed by:Manjit Whatley. Transcribed by: [email or web address], User Resident: Electronically Signed by: MANJIT WHATLEY @ 01/10/2018 04:[address] [facility] Comment on above: Order Comment: , Vie ws (X-RAY, HIP): Radiologic Protocol , Views (X-RAY, HIP): Radiologic Protocol , , , Ordering Provider - MIRTHA VELÁSQUEZ PA-C , HIP LEFT 1 OR 2 VWS WITH PEL VISon 11-01-2017 HIP LEFT 1 OR 2 VWS WITH PELVIS [facility] Department of Radiology [address] [place] [id number] Patient Name: DELICIA HSU : 1935 Sex: F Age: Race: White Pt. Location: Patient Status: Ordered Date: 11/01/2017 3:00:00 PM Completed Date: 11/01/2017 03:00 PM Requesting Provider: MIRTHA VELÁSQUEZ Attending Provider: Report Copy To: Signs & Symptoms: S72.045D Nondisp fx of base of nk of l femr, 7thD I10 History: [place] Comments: , Views (X-RAY, HIP): Radiologic Protocol , Views (X-RAY, HIP): Radiologic Protocol , , , Ordering Provider - MIRTHA VELÁSQUEZ PA-C , Exam: HIP LEFT 1 OR 2 VWS WITH PELVIS HIP LEFT 1 OR 2 VWS WITH PELVIS 11/01/2017 3:00 PM EDT SIGNS AND SYMPTOMS: S72.045D Nondisp fx of base of nk of l femr, 7thD I10 TECHNOLOGIST COMMENTS: History of left hip surgery 06/04/2017. Ortho follow up. QUESTION FOR THE RADIOLOGIST: , Views (X-RAY, HIP): Radiologic Protocol , Views (X-RAY, HIP): Radiologic Protocol , , , Ordering Provider - MIRTHA VELÁSQUEZ PA-C , PROTOCOL: AP(PA) and Lateral views were obtained. COMPARISON: September 21, 2017. FINDINGS: Neck fracture of proximal left femur internally fixated with multiple screws. No interval change in appearance since the prior study. Intact bony ring of pelvis on AP view. IMPRESSION: ORIF of left femoral neck fracture with limited healing, similar to prior study. Electronically signed by:Gerson Rodriguez. Transcribed by: [email or web address], User Resident: Electronically Signed by: GERSON RODRIGUEZ @ 11/01/2017 03:25 PM Normal [facility] Comment on above: Order Comment: , Carmella ws (X-RAY, HIP): Radiologic Protocol , Views (X-RAY, HIP): Radiologic Protocol , , , Ordering Provider - MIRTHA VELÁSQUEZ PA-C , HIP LEFT 1 OR 2 VWS WITH PEL VISon 09-21-2017 HIP LEFT 1 OR 2 VWS WITH PELVIS [facility] Department of Radiology [address] [place] [id number] Patient Name: DELICIA HSU : 1935 Sex: F Age: Race: White Pt. Location: 84 Patient Status: Ordered Date: 09/21/2017 2:00:00 PM Completed Date: 09/21/2017 01:58 PM Requesting Provider: MIRTHA VELÁSQUEZ Attending Provider: Report Copy To: Signs & Symptoms: S72.045D Nondisp fx of base of nk of l femr, 7thD I10 History: [place] Comments: , , , Ordering Provider - MIRTHA DIDIER PA-C , Exam: HIP LEFT 1 OR 2 VWS WITH PELVIS HIP LEFT 1 OR 2 VWS WITH PELVIS 09/21/2017 1:58 PM EDT SIGNS AND SYMPTOMS: S72.045D Nondisp fx of base of nk of l femr, 7thD I10 TECHNOLOGIST COMMENTS: hx of left femur fx, surgery 06/04/17 QUESTION FOR THE RADIOLOGIST: , , , Ordering Provider - MIRTHA DIDIER PA-C , PROTOCOL: AP(PA) and Lateral views were obtained. COMPARISON: September 02, 2017 FINDINGS: Soft tissues: Vascular calcifications and saphenous vein clips Bones: Screw fixation of subcapital fracture with still limited healing Joints: Moderate bilateral hip arthritis IMPRESSION: Unchanged screw fixation of left hip fracture Electronically signed by:Coy Jerome. Transcribed by: [email or web address], User Resident: Electronically Signed by: COY JEROME @ 09/21/2017 03:27 PM [facility] Comment on above: Order Comment: , , = ========= , Ordering Provider - MIRTHA DIDIER PA-C , Vital Signs Date Time Vital Sign Value Performing Clinician Facility 01-29-2023 11:26-0500 Heart rate 75 /min MALATHI VIEIRA [facility] 01-29-2023 11:26-0500 SaO2% (BldA) [Mass fraction] 95 % MALATHI VIEIRA [facility] 01-29-2023 11:26-0500 Respiratory rate 16 /min MALATHI DEB [facility] 01-29-2023 11:25-0500 Diastolic blood pressure 83 mm[Hg] MALATHI DEB [facility] 01-29-2023 11:25-0500 Mean blood pressure 108 mm[Hg] MALATHI DEB [facility] 01-29-2023 11:25-0500 Systolic blood pressure 158 mm[Hg] MALATHI DEB [facility] 01-29-2023 11:25-0500 Body temperature 98.06 [degF] MALATHI DEB [facility] 01-29-2023 10:54-0500 Heart rate 74 /min MLAATHI DEB [facility] 01-29-2023 10:54-0500 SaO2% (BldA) [Mass fraction] 97 % MALATHI DEB [facility] 01-29-2023 10:54-0500 Respiratory rate 16 /min MALATHI DEB [facility] 01-29-2023 10:53-0500 Body temperature 97.52 [degF] MALATHI DEB [facility] 01-29-2023 10:53-0500 Diastolic blood pressure 84 mm[Hg] MALATHI DEB [facility] 01-29-2023 10:53-0500 Mean blood pressure 104 mm[Hg] MALATHI DEB [facility] 01-29-2023 10:53-0500 Systolic blood pressure 146 mm[Hg] MALATHI DEB [facility] 01-12-2023 13:30-0500 Body height 167.64 cm Hunter Brown Other [employer] Other 01-12-2023 13:30-0500 Body mass index (BMI) [Ratio] 22 kg/m2 Hunter Brown Other [employer] Other 01-12-2023 13:30-0500 Body weight 61.83 kg Hunter Brown Other [employer] Other 01-12-2023 13:30-0500 Diastolic blood pressure 60 mm[Hg] Hunter Brown Other [employer] Other 01-12-2023 13:30-0500 Systolic blood pressure 137 mm[Hg] Hunter Brown Other [employer] Other 01-05-2023 11:30-0500 Body height 167.64 cm Gypsy Mcmahon Other [employer] Other 01-05-2023 11:30-0500 Body mass index (BMI) [Ratio] 21.63 kg/m2 Gypsy Mcmahon Other [employer] Other 01-05-2023 11:30-0500 Body weight 60.78 kg Gypsy Mcmahon Other [employer] Other 01-05-2023 11:30-0500 Diastolic blood pressure 72 mm[Hg] Gypsy Mcmahon Other [employer] Other 01-05-2023 11:30-0500 Systolic blood pressure 162 mm[Hg] Gypsy Mcmahon Other [employer] Other 12-28-2022 13:30-0500 Body height 167.64 cm Malathi Swensonjareth Other [employer] Other 12-28-2022 13:30-0500 Body mass index (BMI) [Ratio] 19.98 kg/m2 Malathi Velázquez Other [employer] Other 12-28-2022 13:30-0500 Body weight 56.16 kg Malathi Swensonjareth Other [employer] Other 12-28-2022 13:30-0500 Diastolic blood pressure 78 mm[Hg] Malathi Solanoelisa Other [employer] Other 12-28-2022 13:30-0500 Systolic blood pressure 146 mm[Hg] Malathi Melania Other [employer] Other 12-15-2022 11:15-0500 Body height 167.64 cm Gypsy Mcmahon Other [employer] Other 12-15-2022 11:15-0500 Body mass index (BMI) [Ratio] 21.53 kg/m2 Gypsy Mcmahon Other [employer] Other 12-15-2022 11:15-0500 Body weight 60.51 kg Gypsy Mcmahon Other [employer] Other 12-15-2022 11:15-0500 Diastolic blood pressure 73 mm[Hg] Gypsy Mcmahon Other [employer] Other 12-15-2022 11:15-0500 Systolic blood pressure 178 mm[Hg] Gypsy Mcmahon Other [employer] Other 09-22-2022 14:14-0400 Blood Pressure Location MALATHI VIEIRA [facility] 09-22-2022 14:14-0400 Diastolic blood pressure 90 mm[Hg] MALATHI VIEIRA [facility] 09-22-2022 14:14-0400 Heart rate 78 /min MALATHI VIEIRA [facility] 09-22-2022 14:14-0400 Systolic blood pressure 142 mm[Hg] MALATHI VIEIRA [facility] 09-01-2022 14:15-0400 Body height 167.64 cm Gypsy Mcmahon Other [employer] [facility] [employer] Other 09-01-2022 14:15-0400 Body mass index (BMI) [Ratio] 21.14 kg/m2 Gypsy Mcmahon Other [employer] Other 09-01-2022 14:15-0400 Body weight 59.42 kg Gypsy Mcmahon Other [employer] Other 09-01-2022 14:15-0400 Diastolic blood pressure 56 mm[Hg] Gypsy Mcmahon Other [employer] Other 09-01-2022 14:15-0400 Systolic blood pressure 132 mm[Hg] Gypsy Mcmahon Other [employer] Other 06-09-2022 13:42-0400 Diastolic blood pressure 71 mm[Hg] Marvin KWON [facility] 06-09-2022 13:42-0400 Heart rate 59 /min Marvin KWON [facility] 06-09-2022 13:42-0400 Systolic blood pressure 183 mm[Hg] Marvin KWON [facility] 04-24-2022 11:30-0400 Body height 167.64 cm Hunter Brown Other [employer] Other 04-24-2022 11:30-0400 Body mass index (BMI) [Ratio] 22.11 kg/m2 Hunter Brown Other [employer] Other 04-24-2022 11:30-0400 Body weight 62.14 kg Hunter Brown Other [employer] Other 04-24-2022 11:30-0400 Diastolic blood pressure 70 mm[Hg] Hunter Brown Other [employer] Other 04-24-2022 11:30-0400 Systolic blood pressure 159 mm[Hg] Hunter Brown Other [employer] Other 04-07-2022 14:15-0500 Body height 167.64 cm Gypsy Mcmahon Other [employer] Other 04-07-2022 14:15-0500 Body mass index (BMI) [Ratio] 21.79 kg/m2 Gypsy Mcmahon Other [employer] Other 04-07-2022 14:15-0500 Body weight 61.24 kg Gypsy Mcmahon Other [employer] Other 04-07-2022 14:15-0500 Diastolic blood pressure 62 mm[Hg] Gypsy Mcmahon Other [employer] Other 04-07-2022 14:15-0500 Systolic blood pressure 130 mm[Hg] Gypsy Mcmahon Other [facility] [employer] Other 03-11-2022 13:35-0500 Body temperature 97.5 [degF] MD Gypsy Mcmahon Work Phone: [facility] 03-11-2022 13:35-0500 Diastolic blood pressure 61 mm[Hg] MD Gypsy Mcmahon Work Phone: [facility] 03-11-2022 13:35-0500 Heart rate 60 /min MD Gypsy Mcmahon Work Phone: [facility] 03-11-2022 13:35-0500 Respiratory rate 18 /min MD Gypsy Mcmahon Work Phone: [facility] 03-11-2022 13:35-0500 SaO2% (BldA) [Mass fraction] 96 % MD Gypsy Mcmahon Work Phone: [facility] 03-11-2022 13:35-0500 Systolic blood pressure 135 mm[Hg] MD Gypsy Mcmahon Work Phone: [facility] 02-16-2022 10:45-0500 Body height 167.64 cm Gypsy Mcmahon Other [facility] [employer] Other 02-16-2022 10:45-0500 Body mass index (BMI) [Ratio] 21.46 kg/m2 Gypsy Mcmahon Other [facility] [employer] Other 02-16-2022 10:45-0500 Body weight 60.33 kg Gypsy Mcmahon Other [employer] [facility] [employer] Other 02-16-2022 10:45-0500 Diastolic blood pressure 70 mm[Hg] Gypsy Mcmahon Other [employer] [facility] [employer] Other 02-16-2022 10:45-0500 Systolic blood pressure 120 mm[Hg] Gypsy Mcmahon Other [employer] Other 02-11-2022 12:00-0500 Body height 172.72 cm Hunter Brown Other [employer] Other 02-11-2022 12:00-0500 Body mass index (BMI) [Ratio] 20.83 kg/m2 Hunter Brown Other [employer] Other 02-11-2022 12:00-0500 Body weight 62.14 kg Hunter Brown Other [employer] Other 02-11-2022 12:00-0500 Diastolic blood pressure 68 mm[Hg] Hunter Brown Other [employer] Other 02-11-2022 12:00-0500 Systolic blood pressure 144 mm[Hg] Hunter Brown Other [employer] Other 01-05-2022 10:30-0500 Body height 172.72 cm Hunter Brown Other [employer] Other 01-05-2022 10:30-0500 Body mass index (BMI) [Ratio] 22.04 kg/m2 Hunter Brown Other [employer] Other 01-05-2022 10:30-0500 Body weight 65.77 kg Hunter Brown Other [employer] Other 01-05-2022 10:30-0500 Diastolic blood pressure 78 mm[Hg] Hunter Manny Other [employer] Other 01-05-2022 10:30-0500 Systolic blood pressure 166 mm[Hg] Hunter Manny Other [employer] Other 03-27-2021 12:00-0500 Body height 172.72 cm Giana Griffiths Other [employer] Other 03-27-2021 12:00-0500 Body mass index (BMI) [Ratio] 22.96 kg/m2 Giana Rhoadeskes Other [employer] Other 03-27-2021 12:00-0500 Body weight 68.49 kg Giana Griffiths Other [employer] Other 01-27-2021 10:45-0500 Body height 172.72 cm Giana Griffiths Other [employer] Other 01-27-2021 10:45-0500 Body mass index (BMI) [Ratio] 24.48 kg/m2 Giana Griffiths Other [employer] Other 01-27-2021 10:45-0500 Body weight 73.03 kg Giana Griffiths Other [employer] Other Encounters Encounter Date Encounter Type Care Provider Facility Start: 06-15-2023 ambulatory PA-C MALATHI VIEIRA Facility:[facility] Start: 01-29-2023 ambulatory PA-C MALATHI VIEIRA Facility:[facility] Start: 01-29-2023 End: 01-29-2023 Patient encounter procedure MALATHI VIEIRA [facility] Start: 01-26-2023 End: 01-26-2023 Patient encounter procedure MALATHI VIEIRA [facility] Start: 01-26-2023 End: 01-27-2023 ambulatory MARBIN VIEIRA [employer] Other Start: 01-26-2023 Telephone encounter Hunter Palomo [facility] Start: 01-20-2023 End: 01-20-2023 ambulatory Hunter Brown Other [employer] Other Start: 01-20-2023 Telephone encounter Hunter Palomo cait[facility] Start: 01-12-2023 End: 01-12-2023 ambulatory Hunter Brown Other [employer] Other Start: 01-12-2023 Office outpatient visit 25 minutes Hunter Brown [facility] Start: 01-11-2023 End: 01-11-2023 ambulatory Gypsy Mcmahon Other [employer] Other Start: 01-11-2023 Telephone encounter Gypsy Mcmahon [facility] Start: 01-05-2023 End: 01-05-2023 ambulatory Gypsy Mcmahon Other [employer] Other Start: 01-05-2023 Telephone encounter Gypsy Mcmahon [facility] Start: 01-05-2023 Transitional care manage srvc 14 day discharge Gypsy Mcmahon [facility] Start: 12-30-2022 End: 12-30-2022 ambulatory Malathi Velázquez Other [employer] Other Start: 12-30-2022 Telephone encounter Malathi Boss her [facility] Start: 12-28-2022 End: 12-28-2022 ambulatory Malathi Velázquez Other [employer] Other Start: 12-28-2022 Office outpatient visit 15 minutes Malathi Velázquez [facility] Start: 12-15-2022 End: 12-15-2022 ambulatory Gypsy Mcmahon Other [employer] Other Start: 12-15-2022 Office outpatient visit 15 minutes Gypsy Mcmahon [facility] Start: 12-15-2022 Telephone encounter Gypsy Lisandro [facility] Start: 11-11-2022 End: 11-11-2022 ambulatory [facility] Start: 10-29-2022 ambulatory Hunter Brown Fa cility:[facility] Start: 09-22-2022 End: 09-23-2022 ambulatory PA-C MALATHI VIEIRA Facility:[facility] Start: 09-22-2022 End: 09-22-2022 Patient encounter procedure MALATHI VIEIRA [facility] Start: 09-10-2022 End: 09-10-2022 ambulatory Jose G Ellington Other [employer] Other Start: 09-10-2022 Nursing evaluation o f patient and report Jose G Ellington [facility] Start: 09-08-2022 End: 09-08-2022 ambulatory Hunter Brown Other [employer] Other Start: 09-08-2022 Telephone encounter Hunter brady [facility] Start: 09-01-2022 End: 09-01-2022 ambulatory Gypsy Mcmahon Other [employer] Other Start: 09-01-2022 Office outpatient visit 15 minutes Gypsy Mcmahon [facility] Start: 08-27-2022 End: 08-27-2022 ambulatory Gypsy Mcmahon Other [employer] Other Start: 08-27-2022 Telephone encounter Gypsy Mcmahon [facility] Start: 06-30-2022 End: 06-30-2022 ambulatory [facility] Start: 06-09-2022 End: 06-10-2022 ambulatory Marvin KWON Facility:[facility] Start: 06-09-2022 End: 06-09-2022 Patient encounter procedure Marvin R CHER [facility] Start: 05-27-2022 End: 05-28-2022 ambulatory MALATHI GUERRERORY Facility:[facility] Start: 05-19-2022 End: 05-20-2022 ambulatory GYPSY MCMAHON Facility:[facility] Start: 05-19-2022 End: 05-19-2022 Patient encounter procedure MALATHI VIEIRA [facility] Start: 05-14-2022 End: 05-14-2022 ambulatory Gypsy Mcmahon Other [employer] Other Start: 05-14-2022 Telephone encounter Gypsy Mcmahon [facility] Start: 05-11-2022 End: 05-12-[address] GYPSY MCMAHON Facility:[facility] Start: 05-01-2022 (Televisit) Televisit Gypsy Mcmahon [facility] Start: 05-01-2022 End: 05-01-2022 ambulatory Gypsy Mcmahon Other [employer] Other Start: 05-01-2022 Telephone encounter Gypsy Mcmahon [facility] Start: 04-28-2022 End: 04-29-[address] GYPSY MCMAHON Facility:[facility] Start: 04-24-2022 End: 04-24-2022 ambulatory Hunter Brown Other [employer] Other Start: 04-24-2022 Office outpatient visit 15 minutes Hunter Brown [facility] Start: 04-20-2022 ambulatory Marvin KWON Facility :[facility] Start: 04-16-2022 End: 04-16-2022 ambulatory Gypsy Mcmahon Other [employer] Other Start: 04-16-2022 Telephone encounter Gypsy Mcmahon [facility] Start: 04-14-2022 End: 04-14-[address] GYPSY MCMAHON Facility:[facility] Start: 04-07-2022 End: 04-07-2022 ambulatory Gypsy Mcmahon Other [employer] Other Start: 04-07-2022 Office outpatient visit 15 minutes Gypsy Mcmahon [facility] Start: 04-03-2022 End: 04-03-2022 ambulatory Gypsy Mcmahon Other [employer] Other Start: 04-03-2022 Telephone encounter Gypsy Mcmahon [facility] Start: 03-30-2022 End: 03-30-2022 ambulatory Gypsy Mcmahon Facility:[facility] Start: 03-30-2022 End: 03-30-2022 Departed Referred MD Gypsy Mcmahon Work Phone: [facility] Work Phone: Start: 03-30-2022 End: 03-30-2022 ambulatory MD Gypsy Mcmahon Work Phone: [facility] Work Phone: Start: 03-30-2022 Nursing evaluation o f patient and report Gypsy Mcmahon [facility] Start: 03-20-2022 End: 03-21-[address] GYPSY MCMAHON Facility:[facility] Start: 03-19-2022 End: 03-19-2022 ambulatory Hunter Brown Other [employer] Other Start: 03-19-2022 Telephone encounter Hunter Palomo [facility] Start: 03-11-2022 Registered Recurring MD Gypsy Mcmahon Work Phone: [facility] Work Phone: Start: 02-23-2022 End: 02-24-[address] GYPSY MCMAHON Facility:[facility] Start: 02-19-2022 End: 02-19-2022 ambulatory Gypsy Mcmahon Other [employer] Other Start: 02-19-2022 Telephone encounter Gypsy Mcmahon [facility] Start: 02-17-2022 End: 02-18-[address] GYPSY MCMAHON Facility:[facility] Start: 02-16-2022 Office outpatient visit 15 minutes Gypsy EUGENE [facility] Start: 02-16-2022 End: 02-16-2022 ambulatory Gypsy Mcmahon [facility] [employer] Other Start: 02-16-2022 End: 02-16-2022 Departed Referred MD Gypsy Mcmahon Work Phone: [facility] Work Phone: Start: 02-11-2022 End: 02-11-2022 ambulatory Hunter Brown Other [employer] Other Start: 02-11-2022 Office outpatient visit 15 minutes Hunter Brown [facility] Start: 02-11-2022 Telephone encounter Hunter brady [facility] Start: 01-26-2022 End: 01-27-[address] GYPSY MCMAHON Facility:[facility] Start: 01-15-2022 End: 01-16-[address] GYPSY MCMAHON Facility:[facility] Start: 01-06-2022 End: 01-06-2022 ambulatory Hunter Brown Other [employer] Other Start: 01-06-2022 Telephone encounter Hunter brady [facility] Start: 01-05-2022 End: 01-06-2022 ambulatory CLAU NASCIMENTO [facility] [email or web address] Other Start: 01-05-2022 Office outpatient visit 25 minutes Hunter Brown [facility] Start: 12-27-2021 End: 12-27-[address] REY MONTGOMERY Facility:[facility] Start: 12-18-2021 End: 12-19-2021 ambulatory CLAU NASCIMENTO Facility:[facility] Start: 12-08-2021 End: 12-09-[address] GYPSY MCMAHON Facility:[facility] Start: 11-18-2021 End: 11-18-2021 ambulatory Hunter Brown Other [employer] Other Start: 11-18-2021 Telephone encounter Hunter Palomo [facility] Start: 11-17-2021 End: 11-18-[address] GYPSY MCMAHON Facility:[facility] Start: 11-10-2021 End: 11-11-[address] GYPSY MCMAHON Facility:[facility] Start: 11-02-2021 End: 11-04-2021 ambulatory SHAIKH Nasreen CHAPMAN Facility:[facility] Start: 10-31-2021 End: 11-01-[address] GYPSY MCMAHON Facility:[facility] Start: 10-27-2021 End: 10-28-2021 ambulatory CLAU NASCIMENTO Facility:[facility] Start: 10-16-2021 End: 10-16-[address] REY MONTGOMERY Facility:[facility] Start: 10-16-2021 End: 10-17-[address] GYPSY MCMAHON Facility:[facility] Start: 08-18-2021 End: 08-18-2021 ambulatory Giana Griffiths Other [employer] Other Start: 08-18-2021 Telephone encounter Giana Griffiths [facility] Start: 08-12-2021 End: 08-12-[address] GYPSY MCMAHON Facility:[facility] Start: 04-22-2021 End: 04-22-2021 ambulatory Giana Griffiths Other [employer] Other Start: 04-22-2021 Telephone encounter Giana Griffiths [facility] Start: 03-27-2021 End: 03-27-2021 ambulatory Giana Griffiths Other [employer] Other Start: 03-27-2021 Office outpatient visit 25 minutes Giana Griffiths [facility] Start: 01-27-2021 End: 01-27-2021 ambulatory Giana Griffiths Other [employer] Other Start: 01-27-2021 Office outpatient visit 25 minutes Giana Griffiths [facility] Start: 01-27-2021 Telephone encounter Giana Griffiths [facility] Procedures Date Procedure Procedure Detail Performing Clinician Start: 06-09-2022 Cystoscopy Marvin BOB Start: 02-16-2022 Piperacillin/tazobactam Gypsy Mcmahon Other Start: 02-16-2022 Urine culture MD Gypsy Mcmahon Work Phone: Start: 03-24-2012 Hernia of abdominal cavity (disorder) MALATHI VIEIRA Start: 10-07-2009 Cystoscopy MALATHI Leonarda ANDREWS Start: 09-12-2009 Introduction of tens ion free vaginal tape MALATHI VIEIRA Start: 07-25-2009 Urodynamic studies CAMMY DONNELLGORDON DEB Bilateral cataracts (disorder) MALATHI VIEIRA Coronary artery bypa ss grafts x 4 MALATHI VIEIRA Excision of sphincte r of anus MALATHI VIEIRA Gallbladder structur e (body structure) MALATHI VIEIRA History of total hysterectomy MALATHI VIEIRA Knee region structur e (body structure) MALATHI VIEIRA Plan of Treatment Date Care Activity Detail Author Start: 03-30-2022 Bacteria identified in Urine by Culture [facility] Immunizations Immunization Date Immunization Notes Care Provider Bob henry 02-16-2022 Shingrix 50 MCG/0.5M L; 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: [Shingrix 50 MCG/0.5ML] Hunter Brown Other [employer] Other 01-15-2022 influenza virus vaccine, unspecified formulation MALATHI DEB [facility] 01-15-2022 SARS-CoV-2 (COVID-19 ) [id number] MALATHI DEB [facility] 01-23-2021 SARS-CoV-2 (COVID-19 ) mRNA BNT-162b2 vax MALATHI DEB [facility] 01-06-2021 influenza virus vaccine, unspecified formulation MALATHI DEB [facility] 03-27-2020 SARS-CoV-2 (COVID-19 ) mRNA BNT-162b2 vax MALATHI DEB [facility] 03-04-2020 SARS-CoV-2 (COVID-19 ) mRNA BNT-980h1 vax MALATHI DEB [facility] 12-06-2019 influenza virus vaccine, unspecified formulation MALATHI DEB [facility] 12-14-2018 influenza virus vaccine, unspecified formulation MALATHI DEB [facility] 02-02-2018 influenza virus vaccine, unspecified formulation MALATHI DEB [facility] 11-08-2017 pneumococcal polysaccharide vaccine, 23 valent MALATHI DEB [facility] 11-02-2017 influenza virus vaccine, unspecified formulation MAALTHI DEB [facility] 12-09-2016 influenza virus vaccine, unspecified formulation MALATHI DEB [facility] 12-02-2016 influenza virus vaccine, unspecified formulation MALATHI VIEIRA [facility] 12-17-2015 influenza virus vaccine, unspecified formulation MALATHI DEB [facility] 10-10-2015 influenza virus vaccine, unspecified formulation MALATHI DEB [facility] 11-19-2014 influenza virus vaccine, unspecified formulation MALATHI DEB [facility] 11-09-2014 pneumococcal polysaccharide vaccine, 23 valent MALATHI VIEIRA [facility] NEGATED: Highlighted row has not occurred!01-26-2023 influenza virus vaccine, unspecified formulation MALATHI VIEIRA [facility] Payers Date Payer Category Payer Self-pay [id number] 1958 [facility] [id number]. 1958 Medicare [id number] 2.1 [id number] 1936 Unknown [id number] 2.16.84 0.1.167096.3.579.2.593 1936 Unknown [id number] 2.16.84 0.1.806399.3.579.2.593 1936 Unknown [id number] 2.16.84 0.1.757618.3.579.2.593 1936 Unknown [id number] 2.16.84 0.1.469185.3.579.2.593 1936 Unknown [id number] 2.16.84 0.1.894893.3.579.2.593 1936 Unknown [id number] 2.16.84 0.1.566560.3.579.2.593 1936 Unknown [id number] 2.16.84 0.1.490061.3.579.2.593 1936 Unknown [id number] 2.16.84 0.1.938989.3.579.2.593 1936 Unknown [id number] 2.16.84 0.1.351483.3.579.2.593 1936 Unknown [id number] 2.16.84 0.1.745212.3.579.2.593 1936 Unknown [id number] 2.16.84 0.1.817432.3.579.2.593 1936 Unknown [id number] 2.16.84 0.1.614224.3.579.2.593 1936 Unknown [id number] 2.16.84 0.1.612278.3.579.2.593 1936 Unknown [id number] 2.16.84 0.1.912623.3.579.2.593 1936 Unknown [id number] 2.16.84 0.1.469044.3.579.2.593 1936 Unknown [id number] 2.16.84 0.1.339297.3.579.2.593 1936 Unknown [id number] 2.16.84 0.1.535509.3.579.2.593 1936 Unknown [id number] 2.16.84 0.1.347605.3.579.2.593 1936 Unknown [id number] 2.16.84 0.1.425470.3.579.2.593 1936 Unknown [id number] 2.16.84 0.1.696194.3.579.2.593 1936 Unknown [id number] 2.16.84 0.1.412978.3.579.2.593 1936 Unknown [id number] 2.16.8 40.1.629328.3.579.2.727 1936 Unknown [id number] 2.16.8 40.1.270023.3.579.2.727 1936 Unknown [id number] 2.16.8 40.1.760787.3.579.2.727 1936 Unknown [id number] 2.16.8 40.1.692348.3.579.2.727 1936 Unknown [id number] 2.16.8 40.1.705736.3.579.2.727 1936 Unknown [id number] 2.16.8 40.1.886205.3.579.2.727 1936 Unknown [id number] 2.16.8 40.1.566214.3.579.2.727 Unknown [id number] 2.16.8 40.1.143568.3.579.2.531 Unknown [id number] 2.16.8 40.1.244574.3.579.2.531 Unknown [id number] 2.16.8 40.1.128745.3.579.2.531 Social History Date Type Detail Facility Unknown if ever smoked [employer] Other Sex Assigned At [facility] Start: 1935 Sex Assigned At Female F [facility] Start: 05-19-2022 End: 06-09-2022 Tobacco smoking status Ex-smoker (finding) [facility] Start: 09-22-2022 Tobacco smoking status Never [facility] Functional Status Date Assessment Result Facility 01-26-2023 Functional Status N/A [facility] 09-22-2022 Functional Status N/A [facility] 06-09-2022 Functional Status N/A [facility] 05-19-2022 Functional Status N/A [facility] Clinical Notes 01-27-2021 to 01-26-2023 Note Date & Type Note Facility 01-26-2023 Hospital Discharg e instructions Patient Education 01/26/2023 16:05:17 Urinary Tract Infection, Adult, [id number] Urinary Tract Infection, Adult A urinary tract infection (UTI) is an infection of any part of the urinary tract. The urinary tract includes: The kidneys. The ureters. The bladder. The urethra. These organs make, store, and get rid of pee (urine) in the body. What are the causes? This infection is caused by germs (bacteria) in your genital area. These germs grow and cause swelling (inflammation) of your urinary tract. What increases the risk? The following factors may make you more likely to develop this condition: Using a small, thin tube (catheter) to drain pee. Not being able to control when you pee or poop (incontinence). Being female. If you are female, these things can increase the risk: ?Using these methods to prevent : ?A medicine that kills sperm (spermicide). ?A device that blocks sperm (diaphragm). ?Having low levels of a female hormone (estrogen). ?Being . You are more likely to develop this condition if: You have genes that add to your risk. You are sexually active. You take antibiotic medicines. You have trouble peeing because of: ?A prostate that is bigger than normal, if you are male. ?A blockage in the part of your body that drains pee from the bladder. ?A kidney stone. ?A nerve condition that affects your bladder. ?Not getting enough to drink. ?Not peeing often enough. You have other conditions, such as: ?Diabetes. ?A weak disease-fighting system (immune system). ?Sickle cell disease. ?Gout. ?Injury of the spine. What are the signs or symptoms? Symptoms of this condition include: Needing to pee right away. Peeing small amounts often. Pain or burning when peeing. Blood in the pee. Pee that smells bad or not like normal. Trouble peeing. Pee that is cloudy. Fluid coming from the vagina, if you are female. Pain in the belly or lower back. Other symptoms include: Vomiting. Not feeling hungry. Feeling mixed up (confused). This may be the first symptom in older adults. Being tired and grouchy (irritable). A fever. Watery poop (diarrhea). How is this treated? Taking antibiotic medicine. Taking other medicines. Drinking enough water. In some cases, you may need to see a specialist. Follow these instructions at home: Medicines Take rary-nib-lozbavc and prescription medicines only as told by your doctor. If you were prescribed an antibiotic medicine, take it as told by your doctor. Do not stop taking it even if you start to feel better. General instructions Make sure you: ?Pee until your bladder is empty. ?Do not hold pee for a long time. ?Empty your bladder after sex. ?Wipe from front to back after peeing or pooping if you are a female. Use each tissue one time when you wipe. Drink enough fluid to keep your pee pale yellow. Keep all follow-up visits. Contact a doctor if: You do not get better after 1 2 days. Your symptoms go away and then come back. Get help right away if: You have very bad back pain. You have very bad pain in your lower belly. You have a fever. You have chills. You feeling like you will vomit or you vomit. Summary A urinary tract infection (UTI) is an infection of any part of the urinary tract. This condition is caused by germs in your genital area. There are many risk factors for a UTI. Treatment includes antibiotic medicines. Drink enough fluid to keep your pee pale yellow. This information is not intended to replace advice given to you by your health care provider. Make sure you discuss any questions you have with your health care provider. Document Revised: 09/06/2020 Document Reviewed: 09/06/2020 [employer] Patient Education 2022 Pond5. Follow Up Care 06/09/2022 14:50:19 With:DEB ZAZUETAMALATHI, URL Address: [address] [address] [phone] When: Unknown Comments:f/u in [place] [facility] 01-20-2023 Evaluation note Encounter Date Diagnosis Assessment Notes Jan, Diarrhea (ICD-10 - R19.7) [employer] Other 12-05-2023 Evaluation note* Encounter Date Diagnosis Assessment Notes Treatment Notes Treatment Clinical Notes Jan, Lymphocytic colitis (ICD-10 - K52.832) Pt to us colestipol 2-3 a day if diarrhea comes back Pt advised to use immodium if needed Pt advised to take metamucil gummies, 1-2 a day Pt RTO in 3 months Pt advised if diarrhea lasts longer than a day, we will re-test for C-diff [employer] Other 11-28-2023 Evaluation note* Encounter Date Diagnosis Assessment Notes Treatment Notes Treatment Clinical Notes Dec, Clostridium difficile colitis (ICD-10 - A04.72) Finish meds as prescribed. (cipro, Flagyl) Followup w Dr. Brown as scheduled. Understands the c diff could recur. Followup as needed Discussed good nutrition and healthy diet. [employer] Other 11-20-2023 Evaluation note* Encounter Date Diagnosis Assessment Notes Treatment Notes Treatment Clinical Notes Dec, Diarrhea, unspecified type (ICD-10 - R19.7) Pt appears to be having secondary from viral infection. There is no abdominal pain on exam and pt is afebrile which is reassuring. C. diff infection is a possibility as she was recently treated [facility] antib[facility] for a UTI, will check stool for C-diff as well as other infectious process that could be occuring. BRAT diet (bananas, rice, applesauce, toast) as tolerated. Advance diet slowly, adding small amounts of 1 new food every 4-6 hrs, as desired. Be sure to drink plenty of fluids, as discussed. If diarrhea or emesis occur, hold intake for 2 hrs and restart with fluids but no additionala foods until holding fluids down. Signs and symptoms of dehydration (cracked dry lips, dry tongue, not voiding normal numbers of times per day, etc.) reviewed and the patient needs to be seen in the Emergency Department if these develop or worsen. Educated about red flag symptoms that would require her to go to the ER. Pt understands and agrees with the plan. [employer] Other 11-07-2023 Evaluation note* Encounter Date Diagnosis Assessment Notes Treatment Notes Treatment Clinical Notes Dec, Frequent UTI (ICD-10 - N39.0) [employer] Other 11-07-2023 Evaluation note* Encounter Date Diagnosis Assessment Notes Treatment Notes Treatment Clinical Notes Dec, Essential (primary) hypertension (ICD-10 - I10) Denies cardiac symptoms. Shows no signs or symptoms or poor control. Patient to continue with above medication and we will continue to monitor. Advised to pay attention to body and symptoms. Any developing patterns. Stay well hydrated. Dec, Biceps tendonitis, right (ICD-10 - M75.21) Keep scheduled appt w Dr. Licea today. Consider PT at [facility] or the [facility]. [employer] [facility] Chief Complaint: Patient here for 6 mo follow up CAD, hypertension, and dyslipidemia. She had stress test in July 2022. Labs and ECG were done in Sep 2022. Lipid profile was not completed since last visit. She denies chest pain and SOB. Hasn't been checking her BP at home. HPI: Delicia Hsu is a 87 y.o. female With a history of coronary artery disease, coronary artery bypass graft surgery in 1998 here to establish care She has been doing fairly well. She denies exertional chest pain or shortness of breath. She has no orthopnea, paroxysmal external dyspnea. She does have chronic lower extremity edema related to chronic venous insufficiency. Pertinently, she had no significant symptoms prior to her need for coronary artery bypass graft surgery. Her last stress test was more than 5 years ago. She is not on aspirin; this appears to be due to a combination of gastric ulcer, microscopic colitis with frequent black stools and diarrhea as well as significant skin wounds. Cardiology ROS: Review of Systems Cardiovascular: Positive for leg swelling. Gastrointestinal: Positive for diarrhea. All other systems reviewed and are negative. Past Medical History She has a past medical history of Coronary artery disease, Hyperlipidemia, and Hypertension. Surgical History She has a past surgical history that includes Cardiac catheterization; Coronary artery bypass graft; Cataract extraction; Cholecystectomy; Hysterectomy; Knee surgery; Anal sphincterotomy; Shoulder surgery; Hernia repair; and Replacement total hip lateral position. Social History She reports that she has quit smoking. Her smoking use included cigarettes. She has never used smokeless tobacco. She reports that she does not currently use alcohol. No history on file for drug use. Family History Family History Problem Relation Name Age of Onset Aneurysm Mother Heart attack Father Allergies Histamine, Levofloxacin, and Promethazine Medications Current Outpatient Medications: budesonide EC (Entocort EC) 3 mg 24 hr capsule, budesonide DR - ER 3 mg capsule,delayed,extended release, Disp: , Rfl: clopidogrel (Plavix) 75 mg tablet, Take 1 tablet (75 mg) by mouth once daily as directed., Disp: 90 tablet, Rfl: 3 metoprolol succinate XL (Toprol-XL) 50 mg 24 hr tablet, Take 50 mg by mouth in the morning., Disp: , Rfl: miscellaneous medical supply (Blood Pressure Cuff) mis, 1 kit in the morning and at bedtime., Disp: 1 each, Rfl: 0 pantoprazole (ProtoNix) 40 mg EC tablet, Take 40 mg by mouth in the morning., Disp: , Rfl: simvastatin (Zocor) 40 mg tablet, simvastatin 40 mg tablet, Disp: , Rfl: spironolactone (Aldactone) 25 mg tablet, spironolactone 25 mg tablet, Disp: , Rfl: Last Recorded Vitals BP 156/66 (BP Location: Right arm, Patient Position: Sitting) Pulse 75 Ht 1.778 m (5' 10 ) Wt 57.2 kg (126 lb) SpO2 97% BMI 18.08 kg/m??? Physical Examination: GENERAL: alert and oriented x3, well developed, in no acute distress. HEAD: atraumatic, normocephalic. EYES: LNAA, EOMI. NECK: trachea midline, no JVD present, no carotid bruits present. CARDIAC: S1, S2 present. RRR. No murmur, rubs, or gallops. RESPIRATORY: CTAB, no increased effort of breathing, no rales, rhonchi, or wheezing. ABDOMEN: soft, nontender, nondistended. EXTREMITIES: no lower extremity edema, peripheral pulses are 2+ bilaterally. No rash/skin discoloration present. NEURO: strength/sensation equal and symmetric in bilateral upper and lower extremities. PSYCH: appropriate mood, affect, and judgement. Investigations: Lipid profile 04/2021: Total cholesterol 189, HDL 73, triglycerides 101, LDL 95.8 Segmental leg pressures and pulse volume recordings 10/31/2021 Impression: Significant right femoral-popliteal arterial disease with moderate hemodynamic impairment of the right lower extremity at rest right MITCH 0.68 Significant left inflow femoral artery or above arterial disease with moderate hemodynamic impairment of the left lower extremity at rest based on the thigh index of 0.87 and at toe-brachial index of 0.56 Left MITCH 1.21 results of which disputed the thigh and TBI indices, clinical correlation advised EKG 09/27/2022: Sinus rhythm, sinus arrhythmia, right bundle branch block, left ventricular hypertrophy with repolarization abnormality. Lexiscan stress test 07/26/2022: Impression: Negative Lexiscan stress test for evidence of ischemic EKG changes. Resting hypertension. Myocardial perfusion imaging will be reported separately. Nuclear imaging: Myocardial perfusion imaging study is normal. Calculated ejection fraction is 71%. 3 times daily ratio 0.9. Assessment: Coronary artery disease, history of coronary artery bypass graft surgery Peripheral arterial disease with claudication - Sees Dr. Belle Venous stasis ulcer of the right calf without varicose veins Hypertension - Uncon (more content not included)...[facility]08-15-2023 Hospital Discharge instructions Patient Education 09/22/2022 15:32:53 Urinary Tract Infection, Adult, [id number] Urinary Tract Infection, Adult A urinary tract infection (UTI) is an infection of any part of the urinary tract. The urinary tractincludes: The kidneys. The ureters. The bladder. The urethra. These organs make, store, and get rid of pee (urine) in the body. What are the causes? This infection is caused by germs (bacteria) in your genital area. These germs grow and cause swelling (inflammation) of your urinary tract. What increases the risk? The following factors may make you more likely to develop this condition: Using a small, thin tube (catheter) to drain pee. Not being able to control when you pee or poop (incontinence). Being female. If you are female, these things can increase the risk: ?Using these methods to prevent : ?A medicine that kills sperm (spermicide). ?A device that blocks sperm (diaphragm). ?Having low levels of a female hormone (estrogen). ?Being . You are more likely to develop this condition if: You have genes that add to your risk. You are sexually active. You take antibiotic medicines. You have trouble peeing because of: ?A prostate that is bigger than normal, if you are male. ?A blockage in the part of your body that drains pee from the bladder. ?A kidney stone. ?A nerve condition that affects your bladder. ?Not getting enough to drink. ?Not peeing often enough. You have other conditions, such as: ?Diabetes. ?A weak disease-fighting system (immune system). ?Sickle cell disease. ?Gout. ?Injury of the spine. What are the signs or symptoms? Symptoms of this condition include: Needing to pee right away. Peeing small amounts often. Pain or burning when peeing. Blood in the pee. Pee that smells bad or not like normal. Trouble peeing. Pee that is cloudy. Fluid coming from the vagina, if you are female. Pain in the belly or lower back. Other symptoms include: Vomiting. Not feeling hungry. Feeling mixed up (confused). This may be the first symptom in older adults. Being tired and grouchy (irritable). A fever. Watery poop (diarrhea). How is this treated? Taking antibiotic medicine. Taking other medicines. Drinking enough water. In some cases, you may need to see a specialist. Follow these instructions at home: Medicines Take kujd-scw-udyppsl and prescription medicines only as told by your doctor. If you were prescribed an antibiotic medicine, take it as told by your doctor. Do not stop taking it even if you start to feel better. General instructions Make sure you: ?Pee until your bladder is empty. ?Do not hold pee for a long time. ?Empty your bladder after sex. ?Wipe from front to back after peeing or pooping if you are a female. Use each tissue one time whenyou wipe. Drink enough fluid to keep your pee pale yellow. Keep all follow-up visits. Contact a doctor if: You do not get better after 1 2 days. Your symptoms go away and then come back. Get help right away if: You have very bad back pain. You have very bad pain in your lower belly. You have a fever. You have chills. You feeling like you will vomit or you vomit. Summary A urinary tract infection (UTI) is an infection of any part of the urinary tract. This condition is caused by germs in your genital area. There are many risk factors for a UTI. Treatment includes antibiotic medicines. Drink enough fluid to keep your pee pale yellow. This information is not intended to replace advice given to you by your health care provider. Make sure you discuss any questions you have with your health care provider. Document Revised: 09/06/2020 Document Reviewed: 09/06/2020 [employer] Patient Education 2022 Pond5. Follow Up Care 09/22/2022 10:38:22 With:DEB ZAZUETA, MALATHI Olvera, URL Address: [address] [place] [address]. [place] [address] When: Unknown [facility] 08-03-2023 Evaluation note* Encounter Date Diagnosis Assessment Notes Treatment Notes Treatment Clinical Notes Sep, Dysuria (ICD-10 - R30.0) [facility] [employer] Other 08-01-2023 Evaluation note* Encounter Date Diagnosis Assessment Notes Treatment Notes Treatment Clinical Notes Sep, Microscopic colitis, unspecified microscopic colitis type (ICD-10 - K52.839) [facility] [employer] Other 07-25-2023 Evaluation note* Encounter Date Diagnosis Assessment Notes Treatment Notes Treatment Clinical Notes Aug, Frequent UTI (ICD-10 - N39.0) Continue estrogen cream. Review with Urology on her followup appt. Discussed causes of UTIs Aug, Lymphocytic colitis (ICD-10 - K52.832) Improved with GI at [facility]. Aug, Coronary artery disease involving agdaagux coronary artery of agdaagux heart without angina pectoris (ICD-10 - I25.10) Now established with Dr. Barry. Reviewed medications and explained their purpose. [employer] Other 07-20-2023 Evaluation note* Encounter Date Diagnosis Assessment Notes Treatment Notes Treatment Clinical Notes Aug, Recurrent UTI (ICD-10 - N39.0) [employer] [facility] Chief Complaint: New patient here to establish care for CAD. She has hx of CABG x4 back in 1998. Denies chest pain and SOB. C/o LE edema and leaking . Had MITCH's in Oct 2021. HPI: Delicia Hsu is a 86 y.o. female With a history of coronary artery disease, coronary artery bypass graft surgery in 1998 here to establish care She has been doing fairly well. She denies exertional chest pain or shortness of breath. She has no orthopnea, paroxysmal external dyspnea. She does have chronic lower extremity edema related to chronic venous insufficiency. Pertinently, she had no significant symptoms prior to her need for coronary artery bypass graft surgery. Her last stress test was more than 5 years ago. She is not on aspirin; this appears to be due to a combination of gastric ulcer, microscopic colitis with frequent black stools and diarrhea as well as significant skin wounds. Cardiology ROS: Review of Systems Cardiovascular: Positive for leg swelling. Past Medical History She has no past medical history on file. Surgical History She has no past surgical history on file. Social History She has no history on file for tobacco use, alcohol use, and drug use. Family History No family history on file. Allergies Patient has no allergy information on record. Medications No current outpatient medications on file. Last Recorded Vitals BP 179/68 (BP Location: Left arm, Patient Position: Sitting) Pulse 65 Ht 1.778 m (5' 10 ) Wt 60.8 kg (134 lb) SpO2 97% BMI 19.23 kg/m??? Physical Examination: GENERAL: alert and oriented x3, well developed, in no acute distress. HEAD: atraumatic, normocephalic. EYES: LANA, EOMI. NECK: trachea midline, no JVD present, no carotid bruits present. CARDIAC: S1, S2 present. RRR. No murmur, rubs, or gallops. RESPIRATORY: CTAB, no increased effort of breathing, no rales, rhonchi, or wheezing. ABDOMEN: soft, nontender, nondistended. EXTREMITIES: no lower extremity edema, peripheral pulses are 2+ bilaterally. No rash/skin discoloration present. NEURO: strength/sensation equal and symmetric in bilateral upper and lower extremities. PSYCH: appropriate mood, affect, and judgement. Assessment: Coronary artery disease, history of coronary artery bypass graft surgery Peripheral arterial disease with claudication - Sees Dr. Belle Venous stasis ulcer of the right calf without varicose veins Hypertension Dyslipidemia Microscopic colitis with frequent diarrhea and black stool Gastric ulcer Plan: A fasting lipid profile and liver function test will be checked Given the duration of time since her last ischemic work-up, and the absence of symptoms prior to revascularization, it would be prudent to rule out occult ischemia; will order a Lexiscan stress test Ideally, she should be on an antiplatelet either aspirin or Plavix. 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 Depending on the risk-benefit ratio will consider starting 1 or the other. She is on Zocor which is not ideal. If her cholesterol is not controlled, would suggest switching her to 40 mg of Lipitor or 20 mg of Crestor. Follow-up in 6 months or sooner should problems arise or her stress test revealed ischemia Jake Barry MD, MPH, [facility], [facility], [facility] Interventional Cardiology Pager Email: [email or web address] Hospital Discharge instructions Patient Education 06/09/2022 14:15:56 Urinary Tract Infection, Adult, Sptv-we-Eaue Urinary Tract Infection, Adult A urinary tract infection (UTI) is an infection of any part of the urinary tract. The urinary tractincludes: The kidneys. The ureters. The bladder. The urethra. These organs make, store, and get rid of pee (urine) in the body. What are the causes? This infection is caused by germs (bacteria) in your genital area. These germs grow and cause swelling (inflammation) of your urinary tract. What increases the risk? The following factors may make you more likely to develop this condition: Using a small, thin tube (catheter) to drain pee. Not being able to control when you pee or poop (incontinence). Being female. If you are female, these things can increase the risk: ?Using these methods to prevent : ?A medicine that kills sperm (spermicide). ?A device that blocks sperm (diaphragm). ?Having low levels of a female hormone (estrogen). ?Being . You are more likely to develop this condition if: You have genes that add to your risk. You are sexually active. You take antibiotic medicines. You have trouble peeing because of: ?A prostate that is bigger than normal, if you are male. ?A blockage in the part of your body that drains pee from the bladder. ?A kidney stone. ?A nerve condition that affects your bladder. ?Not getting enough to drink. ?Not peeing often enough. You have other conditions, such as: ?Diabetes. ?A weak disease-fighting system (immune system). ?Sickle cell disease. ?Gout. ?Injury of the spine. What are the signs or symptoms? Symptoms of this condition include: Needing to pee right away. Peeing small amounts often. Pain or burning when peeing. Blood in the pee. Pee that smells bad or not like normal. Trouble peeing. Pee that is cloudy. Fluid coming from the vagina, if you are female. Pain in the belly or lower back. Other symptoms include: Vomiting. Not feeling hungry. Feeling mixed up (confused). This may be the first symptom in older adults. Being tired and grouchy (irritable). A fever. Watery poop (diarrhea). How is this treated? Taking antibiotic medicine. Taking other medicines. Drinking enough water. In some cases, you may need to see a specialist. Follow these instructions at home: Medicines Take gpkf-lvy-apmcxne and prescription medicines only as told by your doctor. If you were prescribed an antibiotic medicine, take it as told by your doctor. Do not stop taking it even if you start to feel better. General instructions Make sure you: ?Pee until your bladder is empty. ?Do not hold pee for a long time. ?Empty your bladder after sex. ?Wipe from front to back after peeing or pooping if you are a female. Use each tissue one time whenyou wipe. Drink enough fluid to keep your pee pale yellow. Keep all follow-up visits. Contact a doctor if: You do not get better after 1 2 days. Your symptoms go away and then come back. Get help right away if: You have very bad back pain. You have very bad pain in your lower belly. You have a fever. You have chills. You feeling like you will vomit or you vomit. Summary A urinary tract infection (UTI) is an infection of any part of the urinary tract. This condition is caused by germs in your genital area. There are many risk factors for a UTI. Treatment includes antibiotic medicines. Drink enough fluid to keep your pee pale yellow. This information is not intended to replace advice given to you by your health care provider. Make sure you discuss any questions you have with your health care provider. Document Revised: 09/06/2020 Document Reviewed: 09/06/2020 [employer] Patient Education 2022 Pond5. Follow Up Care 06/01/2022 10:03:13 With:CHER KRISHNAN, Marvin Camacho, URL Address: [facility] [address], [place] [address] [phone] When:10/10/2022 [facility] 04-11-2023 NoteChief Complaint Referral *Recurrent UTI HPI Staff Evaluation requested by Dr Gypsy Mcmahon due to recurrent UTI. Pt is a new pt. Last seen in our office 10/24/12 by PRW due to chronic cystitis. At that time was using Premarin Cream 2-3x/wk. Per PCP notes, pt was started on Estrace Cream 2x/wk on 04/07/22. Pt states she used for about 1m, did not seem to help with infections, so she quit using. Pt gets Entyvio infusions due to colitis, unable to receive the infusions while taking an abx. HX of TVT Sling by PRW in 2009 Has had many + C&S since Oct 2021 Currently being Tx'd for UTI w/Macrobid. 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 Currently not having symptoms. Per pt's daughter the UTI's in the past year have also been accompanied with mental confusion and weakness. Does c/o not being able to empty bladder. Occasional leaking, not very often. Denies all other urinary complaints. PVR today is 56ml History of Present Illness staff HPI reviewed and agree. Review of Systems PHQ Score Initial Depression Screen Score: 0 no fever, chills, malaise, myalgia. no rash/lesions. no chest pain, palpitations, or SOB. no abdominal pain, nausea, vomiting. no unilateral calf swelling, redness, pain Physical Exam Vitals & Measurements HT: 70 in HT: 178 cm WT: 61 kg WT: 134.2 lb BMI: 19.25 General: nontoxic, NAD Mouth: moist mucosa Lungs: normal respiratory effort Cardio: regular rate, good distal perfusion Abdomen: nondistended, no suprapubic distention or tenderness, no CVA tenderness Neurologic: Grossly normal Skin: No rashes or suspicious lesions Assessment/Plan Last saw Dr. Kwon 10/24/12 for chronic cystitis. S/p TVT sling 2009 02. Recurrent UTI (N39.0: Urinary tract infection, site not specified) New patient referred by Dr. Gypsy Mcmahon for recurrent UTIs. pt was started on Estrace cream 2x/wk 04/07/22 by primary care. shares she used for 1 month and did not notice an improvement with infections so she stopped using. has tried Premarin in the past when seeing Dr. Kwon long hx of infections. had them all throughout adulthood, at least once every few years. markedly worsened in the last 1-2 yrs and even moreso in the last 6 mos. pretty much constantly infected now. 05/11/22 - Carbapenum Resistant Enterobacteriaceae 04/28/22 - Klebsiella & Enterobacter aerogenes 04/14/22 - 20k Enterococcus Faecium 03/20/22 - Pseudomonas Aeruginosa 02/16/22 - Klebsiella Variicola 12/27/21 - Citrobacter braakii & Enterobacter Cloacae 11/01/21 - Klebsiella Pneumoniae Usual symptoms of UTI are odor, color and burning. Per pt's daughter the UTI's in the past year have also been accompanied with mental confusion and weakness. Asx currently, UA today neg. Currently on abx per PCP. concerned about infections since she is unable to receive Entyvio infusions (due to colitis) while on abx. advised pt that Entyvio can actually increase amount of UTIs. it's not a systemic immunosuppressant but rather a gut-selective biologic, however there are reports of increased infections with it (usually URI but also UTIs). may need to speak w GI doctor about discontinuing this if all other measures fail. explained to pt and her daughter that having Colitis increases the risk of fistula. pt has noticed 'particles' in the urine sometimes. hasn't noticed air/bubbles but admits she doesn't really check. has been experiencing uncontrolled diarrhea since being on all the rounds of abx recently. advised that her cx have shown bacteria common to stool, so if it's not a fistula, it's likely coming from the outside in. recommended optimizing hygiene and working with GI to improve the diarrhea. discussed kidney/bladder stones can cause stones. no hx. no recent imaging. -directed patient to re-start Estrace cream, explained it can take at least 3 months to see a difference, apply every night for the first 2-3 weeks and then wean to 2-3x weekly (has cream at home, call for refills when needed) -start cranberry pills, probiotics, D-Mannose - look for combination of all three -schedule CT AP w oral contrast only to rule out stones and fistula -if imaging is normal, schedule cysto w/ possible UD. The risks and benefits for cystoscopy have been discussed. The risks include bleeding, infection, and irritation of the bladder and urinary channel, among others. The patient, after being informed of procedural details and after questions have been answered, wishes to proceed. Full informed consent has been obtained. Will order Local anesthesia. 2. Feeling o (more content not included)...[facility] CampusComment on above:Result Comment: Electronically Signed By: MALATHI VIEIRA PA-C\.maribeth\Date and Time Signed: 05/19/2313:49 EDT\.br\Electronically Co-Signed By: Ela Smith.maribeth\Date and Time Co-Signed: 05/19/22 14:40 [id number] Hospital Discharge instructions Patient Education 05/19/2022 14:16:45 Urinary Tract Infection, Adult Urinary Tract Infection, Adult A urinary tract infection (UTI) is an infection of any part of the urinary tract. The urinary tractincludes the kidneys, ureters, bladder, and urethra. These organs make, store, and get rid of urinein the body. Your health care provider may use other names to describe the infection. An upper UTI affects the ureters and kidneys (pyelonephritis). A lower UTI affects the bladder (cystitis) and urethra (urethritis). What are the causes? Most urinary tract infections are caused by bacteria in your genital area, around the entrance to your urinary tract (urethra). These bacteria grow and cause inflammation of your urinary tract. What increases the risk? You are more likely to develop this condition if: You have a urinary catheter that stays in place (indwelling). You are not able to control when you urinate or have a bowel movement (you have incontinence). You are female and you: ?Use a spermicide or diaphragm for control. ?Have low estrogen levels. ?Are . You have certain genes that increase your risk (genetics). You are sexually active. You take antibiotic medicines. You have a condition that causes your flow of urine to slow down, such as: ?An enlarged prostate, if you are male. ?Blockage in your urethra (stricture). ?A kidney stone. ?A nerve condition that affects your bladder control (neurogenic bladder). ?Not getting enough to drink, or not urinating often. You have certain medical conditions, such as: ?Diabetes. ?A weak disease-fighting system (immunesystem). ?Sickle cell disease. ?Gout. ?Spinal cord injury. What are the signs or symptoms? Symptoms of this condition include: Needing to urinate right away (urgently). Frequent urination or passing small amounts of urine frequently. Pain or burning with urination. Blood in the urine. Urine that smells bad or unusual. Trouble urinating. Cloudy urine. Vaginal discharge, if you are female. Pain in the abdomen or the lower back. You may also have: Vomiting or a decreased appetite. Confusion. Irritability or tiredness. A fever. Diarrhea. The first symptom in older adults may be confusion. In some cases, they may not have any symptoms until the infection has worsened. How is this diagnosed? This condition is diagnosed based on your medical history and a physical exam. You may also have other tests, including: Urine tests. Blood tests. Tests for sexually transmitted infections (STIs). If you have had more than one UTI, a cystoscopy or imaging studies may be done to determine the cause of the infections. How is this treated? Treatment for this condition includes: Antibiotic medicine. Terb-nww-jgqyoat medicines to treat discomfort. Drinking enough water to stay hydrated. If you have frequent infections or have other conditions such as a kidney stone, you may need to see a health care provider who specializes in the urinary tract (urologist). In rare cases, urinary tract infections can cause sepsis. Sepsis is a life- threatening condition that occurs when the body responds to an infection. Sepsis is treated in the hospital with IV antibiotics, fluids, and other medicines. Follow these instructions at home: Medicines Take akrb-xde-ugavubv and prescription medicines only as told by your health care provider. If you were prescribed an antibiotic medicine, take it as told by your health care provider. Do notstop using the antibiotic even if you start to feel better. General instructions Make sure you: ?Empty your bladder often and completely. Do not hold urine for long periods of time. ?Empty your bladder after sex. ?Wipe from front to back after a bowel movement if you are female. Use each tissue one time when you wipe. Drink enough fluid to keep your urine pale yellow. Keep all follow-up visits as told by your health care provider. This is important. Contact a health care provider if: Your symptoms do not get better after 1 2 days. Your symptoms go away and then return. Get help right away if you have: Severe pain in your back or your lower abdomen. A fever. Nausea or vomiting. Summary A urinary tract infection (UTI) is an infection of any part of the urinary tract, which includes the kidneys, ureters, bladder, and urethra. Most urinary tract infections are caused by bacteria in your genital area, around the entrance to your urinary tract (urethra). Treatment for this condition often includes antibiotic medicines. If you were prescribed an antibiotic medicine, take it as told by your health care provider. Do notstop using the antibiotic even if you start to feel better. Keep all follow-up visits as told by your health care provider. This is important. This information is not intended to replace advice given to you by your health care provider. Make sure you discuss any questions you have with your health care provider. Document Released: 11/04/2005 Document Revised: 01/12/2019 Document Reviewed: 08/04/2018 [employer] Patient Education 2020 [employer]. Follow Up Care 04/20/2022 10:50:51 With:DEB ZAZUETA, MALATHI Olvera, URL Address: [address] [place] [address] When: Unknown [facility] [place] 04-06-2023 Evaluation note* Encounter Date Diagnosis Assessment Notes Treatment Notes Treatment Clinical Notes May, Frequent UTI (ICD-10 - N39.0) [employer] Other 03-24-2023 Evaluation note* Encounter Date Diagnosis Assessment Notes Treatment Notes Treatment Clinical Notes Apr, Nausea with vomiting, unspecified (ICD-10 - R11.2) will refill meds. established with Dr. Brown. Understands ER is an option if symptoms do not return. Apr, Diarrhea, unspecified (ICD-10 - R19.7) as above - has ulcerative colitis. Apr, Recurrent UTI (ICD-10 - N39.0) JODY came back this morning. antibiotic at her pharmacy. [employer] Other 03-17-2023 Evaluation note* Encounter Date Diagnosis Assessment Notes Treatment Notes Treatment Clinical Notes Apr, Lymphocytic colitis (ICD-10 - K52.832) Continue Entyvio as directed Continue Lotronex 0.5 mg 1/2 tablet daily Rto 4 months [employer] Other 03-09-2023 Evaluation note* Encounter Date Diagnosis Assessment Notes Treatment Notes Treatment Clinical Notes Apr, Acute cystitis without hematuria (ICD-10 - N30.00) [employer] Other 02-28-2023 Evaluation note* Encounter Date Diagnosis Assessment Notes Treatment Notes Treatment Clinical Notes Mar, Recurrent UTI (ICD-10 - N39.0) Discussed options. Will try estrogen cream for vaginal health. Denies personal history of female cancers. Will also set up w Urology Mar, Colitis (ICD-10 - K52.9) Further treatment with Dr. Brown w appt on 04/24 [employer] Other 02-20-2023 Evaluation note* Encounter Date Diagnosis Assessment Notes Treatment Notes Treatment Clinical Notes Mar, Dysuria (ICD-10 - R30.0) [employer] Other 01-09-2023 Evaluation note* Encounter Date Diagnosis Assessment Notes Treatment Notes Treatment Clinical Notes Feb, Acute cystitis without hematuria (ICD-10 - N30.00) Sent to [facility] for urine culture - will treat based on results. Feb, Encounter for immunization (ICD-10 - Z23) Feb, Microscopic colitis, unspecified microscopic colitis type (ICD-10 - K52.839) Keep appt w Dr. Brown. Discussed boost or other supplement to gain weight Feb, Gastric ulcer (ICD-10 - K25.9) Encouraged her to continue pantoprazole [employer] Other 01-04-2023 Evaluation note* Encounter Date Diagnosis Assessment Notes Treatment Notes Treatment Clinical Notes Feb, Lymphocytic colitis (ICD-10 - K52.832) Start Entyvio infusions every 8 weeks Continue Budesonide, Alosetron, Imodium, and Pepto for now until starting Entyvio. Pt to keep record of bowel movements - how many and consistency Follow up in 2 months Feb, Fecal incontinence (ICD-10 - R15.9) [employer] Other 11-28-2022 Evaluation note* Encounter Date Diagnosis Assessment Notes Treatment Notes Treatment Clinical Notes Dec, Lymphocytic colitis (ICD-10 - K52.832) Continue Budesonide Stop Alosetron for now Decrease Inodium to 2 tabs twice a day. Decrease to 1 tab twice a day if still with constipation on 2 tabs twice a day. Follow up in 4 weeks Dec, Gastric ulcer (ICD-10 - K25.9) Continue Pantoprazole as prescribed Okay to stop Sucralfate [employer] Other 09-25-2022 NoteOPERATIVE NOTE OPERATION DATE: 11/04/2021 PREOPERATIVE DIAGNOSIS: Melanotic stools and blood loss anemia. POSTOPERATIVE DIAGNOSIS: Distal gastric and duodenal ulcers and gastritis. PROCEDURE: Esophagogastroduodenoscopy with biopsies. SURGEON: Dr. Ang Roman ANESTHESIA: MAC. ESTIMATED BLOOD LOSS: None. COMPLICATIONS: None. INDICATIONS: This patient is an 86-year-old white female who has presented to the hospital with complaints of weakness and was found to be in anemic, with a two week history of black, tarry stools. She is brought today for upper endoscopy to exclude peptic ulcer disease. PROCEDURE: The patient was placed on the endoscopy suite table in the left lateral decubitus position. After appropriate time out and administration of adequate sedation, the endoscope was then passed through mouth in the usual fashion. Scope was passed easily down through the esophagus and into the stomach. The scope was passed more distally to the antrum where a large cratered antral ulcer was noted to be present. This was non-bleeding and with no stigmata of recent bleeding. The scope was passed more distally through the pylorus, into the duodenal bulb. The duodenal bulb appeared to be within normal limits; however, at the very proximal portion of the C-loop, there was another smaller ulcer noted to be present, also non-bleeding, with no stigmata of recent bleeding. The scope was further advanced to the fourth portion of the duodenum and into the proximal jejunum. On slow withdrawal of the scope, good visualization of the remainder of the duodenum demonstrated no other significant abnormalities. The scope was withdrawn into the stomach. Biopsies were taken of the antral mucosa for H. pylori and multiple biopsies were taken of the cratered distal gastric ulcer as well for routine pathology. The scope was retroflexed. The cardia and fundus appeared to be within normal limits. The greater and lesser curvatures were well visualized, also appeared to be normal, and mild gastritis was noted to be present in the distal antral area as well. The stomach was then decompressed and the scope was withdrawn into the esophagus. Good visualization of the esophageal mucosa revealed no significant abnormalities, and the scope was then withdrawn. The patient tolerated the procedure well, was taken to PACU in good condition.[facility] 03-27-2021 Evaluation note* Encounter Date Diagnosis Assessment Notes Treatment Notes Treatment Clinical Notes Mar, Microscopic colitis, unspecified microscopic colitis type (ICD-10 - K52.839) INCREASE COLESTIPOL TO 4 TABS AT LUNCHTIME DAILY IF NOT IMPROVED ON HIGHER DOSE PT TO CALL ON 03/31 FOR ALTERNATIVE PLAN Mar, Irritable bowel syndrome with diarrhea (ICD-10 - K58.0) [employer] Other 12-20-2021 Evaluation note* Encounter Date Diagnosis Assessment Notes Treatment Notes Treatment Clinical Notes Jan, Microscopic colitis, unspecified microscopic colitis type (ICD-10 - K52.839) START COLESIPOL 2 PO DAILY CONTINUE BUDESONIDE WITHOUT CHANGE 3 PO Q AM AND MAYBE CONSIDERING STOP THIS IF COLESTIPOL IS WORKING ENOUGH TO CONTROL HER SYMPTOMS [employer] Other 12-20-2021 Evaluation note* Encounter Date Diagnosis Assessment Notes Treatment Notes Treatment Clinical Notes Jan, Microscopic colitis, unspecified microscopic colitis type (ICD-10 - K52.839) [employer] Other Evaluation + Plan note No data available for this section [facility] evaluation + Plan note Future Appointments Appointment Date:10/27/2022 01:00:00 PM Scheduled Provider:MALATHI VIEIRA PA-C Location:[facility] Appointment Type:URO Office Visit [facility] Evaluation + Plan note Future Appointments Appointment Date:12/29/2022 01:00:00 PM Scheduled Provider:MALATHI VIEIRA PA-C Location:[facility] Appointment Type:URO Office Visit [facility] evaluation + Plan note Future Appointments Appointment Date:06/15/2023 02:00:00 PM Scheduled Provider:MALATHI VIEIRA PA-C Location:[facility] Appointment Type:URO Office Visit [facility] evaluation + Plan note Future Appointments Appointment Date:01/30/2023 10:30:00 AM Scheduled Provider: Location:[facility] Appointment Type:ASU IV Antibiotic (FT) Appointment Date:01/31/2023 10:30:00 AM Scheduled Provider: Location:[facility] Appointment Type:ASU IV Antibiotic (FT) Appointment Date:02/01/2023 10:30:00 AM Scheduled Provider: Location:[facility] Appointment Type:ASU IV Antibiotic (FT) Appointment Date:02/02/2023 10:30:00 AM Scheduled Provider: Location:[facility] Appointment Type:ASU IV Antibiotic (FT) Appointment Date:02/03/2023 10:30:00 AM Scheduled Provider: Location:[facility] Appointment Type:ASU IV Antibiotic (FT) Appointment Date:02/04/2023 10:30:00 AM Scheduled Provider: Location:[facility] Appointment Type:ASU IV Antibiotic (FT) Appointment Date:06/15/2023 02:00:00 PM Scheduled Provider:MALATHI VIEIRA PA-C Location:[facility] Appointment Type:URO [facility] InformationNort Iddiction Other Evaluation noteNo assessment information available [facility] Work Phone: Hissamg general Narrative - Reported* Type Description Date Medical History HTN Medical History hyperlipidemia Medical History microscopic colitis Surgical History T&A Surgical History Quad by-pass Surgical History total hysterectomy Surgical History gall bladder Surgical History Cataracts Surgical History Right Knee Scope Surgical History Sphincterectomy Surgical History Left Rotator Scope Surgical History Hernia Repair 03/24/2012 Hospitalization History See Surgical Hx [employer] Other Hisbzvr general Narrative - Reported* Type Description Date Medical History HTN Medical History hyperlipidemia Medical History microscopic colitis Medical History C diff Surgical History T&A Surgical History Quad by-pass Surgical History total hysterectomy Surgical History gall bladder Surgical History Cataracts Surgical History Right Knee Scope Surgical History Sphincterectomy Surgical History Left Rotator Scope Surgical History Hernia Repair 03/24/2012 Hospitalization History See Surgical Hx Hospitalization History [facility] 12/2022 [employer] Other History general Narrative - Reported* Type Description Date Medical History HTN Medical History hyperlipidemia Medical History microscopic colitis Medical History C diff Surgical History T&A Surgical History Quad by-pass Surgical History total hysterectomy Surgical History gall bladder Surgical History Cataracts Surgical History Right Knee Scope Surgical History Sphincterectomy Surgical History Left Rotator Scope Surgical History Hernia Repair 03/24/2012 Surgical History knee scope Surgical History stent placed and removal Surgical History rotator scope Surgical History left hip replacement Hospitalization History See Surgical Hx Hospitalization History [facility] 12/2022 [employer] Other Hospital Discharge instructions No data available for this section [facility] No data available for this section [facility] Summary Purpose Family History No Family History Records FoundNo Family History Records FoundNo Family History Records FoundNo Family History Records FoundNo Family History Records Found No data available for this section No data available for this section No Family History Records Found Advance Directives No Advanced Directives Records Found Advance Directive Response Recorded Date/ Time Advance Directives No November 22, 2017 9:57am Hospital Course Note [facility] Clinical Discharge Summary PERSON INFORMATION Name DELICIA HSU Age 83 Years 1935 Sex FEMALE Language Syrian PCP Lisandro KRISHNAN, Gypsy Olvera Marital Status Med Service Med/Surg Acct# Arrival 09/25/2019 06:52:00 Visit Reason SURGERY - LEFT TOTAL HIP Acuity LOS Address: [address] [place] [address] Comment: PROVIDER INFORMATION VITALS INFORMATION Vital Sign Triage Latest Temp Oral Temp Temporal Temp Intravascular Temp Axillary Temp Rectal 02 Sat 95 % 94 % Respiratory Rate Peripheral Pulse Rate Apical Heart Rate Blood Pressure / 67 mmHg / 79 mmHg Comment: MEDICAL INFORMATION Allergy Info: antihistamines; Phenergan Prescriptions Given: acetaminophen (Tylenol Caplet 325 mg oral tablet) 2 tab(s) Oral Every 6 hours as needed pain. budesonide (budesonide 3 mg oral delayed release capsule) 3 cap(s) Oral every day. cefuroxime (cefuroxime 250 mg oral tablet) 1 tab(s) Oral 2 times a day for 7 Days. MAGRU. cholecalcifero (more content not included)... Note Patient: DELICIA HSU Age: 83 years Sex: FEMALE : 1935 Associated Diagnoses: None Author: Enrike Mora MD Postoperative Information Post Operative Note: Post Anesthesia Care Unit. Health Status Allergies: Allergic Reactions (All) Severity Not Documented Antihistamines- No reactions were documented. Nonallergic Reactions (All) Severity Not Documented Phenergan- Hyperactivity. Physical Examination General: No acute distress. Respiratory: Respirations are non-labored. Review / Management Condition: Stable. Assessment Anesthetic outcome No anesthetic complications noted. Adequate pain relief. No Complaint of nausea and vomiting. Plan Transfer/ Discharge: Patient can be discharged from PACU when criteria met. Condition stable. [Electronically Signed on: 09/25/2019 11:54 EDT] Enrike Mora MD [Verified on: 09/25/2019 11:54 EDT] Enrike Mora MD Procedure Findings Note Patient: DELICIA HSU Age: 83 years Sex: FEMALE : 1935 Associated Diagnoses: None Author: Enrike Mora MD Postoperative Information Post Operative Note: Post Anesthesia Care Unit. Health Status Allergies: Allergic Reactions (All) Severity Not Documented Antihistamines- No reactions were documented. Nonallergic Reactions (All) Severity Not Documented Phenergan- Hyperactivity. Physical Examination General: No acute distress. Respiratory: Respirations are non-labored. Review / Management Condition: Stable. Assessment Anesthetic outcome No anesthetic complications noted. Adequate pain relief. No Complaint of nausea and vomiting. Plan Transfer/ Discharge: Patient can be discharged from PACU when criteria met. Condition stable. [Electronically Signed on: 09/25/2019 11:54 EDT] Enrike Mora MD [Verified on: 09/25/2019 11:54 EDT] Enrike Mora MD Chief Complaint and Reason for Visit Chief Complaint N30.00 Microscopic colitis Reason for Referral Reason DUPLICATE [place] office - frequent UTIs. Diagnosis 1 Frequent UTI (N39.0) Referral Organization [facility] [employer] [facility] Referring Provider First Name Gypsy Referring Provider Last Name Mcmahon Referring Provider Specialty [facility] [employer] Referred Organization [facility] Referred Provider DavidBeau Referred Address [address],[place],[address] Referred Provider Specialty Urology Referral Priority Routine General Notes Tatyana Bojorquez 01:56:52 PM >received today Tatyana Bojorquez 05/14/2022 02:02:41 PM >attachments made, notes locked, referral faxed Tatyana Bojorquez 05/14/2022 03:25:50 PM >DUPLICATE REFERRAL Reason *FU 04/28 [place] office - recurrent UTIs. Diagnosis 1 Recurrent UTI (N39.0 ) Referral Organization [facility] [employer] [facility] jah Referring Provider First Name Gypsy Referring Provider Last Name Mcmahon Referring Provider [facility] [employer] Referred Organization [facility] Referred Provider FranckGerson Referred Address [address],[place],[address] Referred Provider Specialty Urology Referral Priority Routine General Notes Tatyana Bojorquez 03:40:45 PM >received today, attachments made, waiting for notes to be locked Tatyana Bojorquez 04/10/2022 08:38:22 AM >notes locked, referral faxed Tatyana Bojorquez 04/20/2022 07:51:15 AM >faxed first attempt letter Tatyana Bojorquez 04/21/2022 07:46:20 AM >received fax that referral was never received. refaxed at this time. Additional Source Comments INFORMATION SOURCE (unrecogn ized section and content) DATE CREATED AUTHOR 09/17/2018 [facility] DATE CREATED AUTHOR AUTHOR'S ORGANIZ ATION 10/30/2019 [facility] DATE CREATED AUTHOR AUTHOR'S ORGANIZ ATION 05/31/2022 [facility] DATE CREATED AUTHOR AUTHOR'S ORGANIZ ATION 11/15/[address] [facility] DATE CREATED AUTHOR AUTHOR'S ORGANIZ ATION 12/21/2022 [facility] DATE CREATED AUTHOR AUTHOR'S ORGANIZ ATION 02/06/2023 [facility] REASON FOR VISIT (unrecogniz ed section and content) PT HERE WITH COMPLAINTS OF D IARRHEA ( PREVIOUS DR SOSA PATIENT)No InformationPATIENT HERE FOR 8 WEEK FOLLOW UP VISIT, SHE HAS ONE DIARRHEA/ LOOSE STOOL DAILY AND AT LEAST ONCE A WEEK SHE HAS URGENCY WITH ACCIDENTNo InformationNo InformationClinical Acute IllnessPrevious dr. griffiths patient here for complaints of diarrhea. patient was started on alosetron, Patient was recently inpatient at [facility] and was diagnosed with gastric ulcerPRESCRIPTIONPATIENT HERE FOR 1 MONTH FOLLOW UP LYMPHOCYTIC COLITIS.No InformationEntyvioCheck upREFILLUANo Informationurine cultureDISCUSSIONurine culturereferralPATIENT HERE FOR 2 MONTH FOLLOW UPupset stomach, vomiting and diarrheautiurine culturerefillmedication discussREFILLSUA-ConfusionRefillTBHNot Feeling WellUpdateTCMtbh follow uprecent admissionPatient here for 3 month follow upClinicalC.Diff Care Teams (unrecognized sec tion and content) Team Status: Inactive Member Role Status Dates Gypsy Mcmahon MD Attending Provider Active Team Status: Inactive Member Role Status Dates Gypsy Mcmahon MD Primary Care Provider, Attending Leonarda griffiths Active Team Status: Active Member Role Status Dates Gypsy Mcmahon MD Primary Care Provider Active Hunter Brown MD Attending Provider Active Goals (unrecognized section and content) Goals may be documented in a n alternate section (unrecognized sect ion and content) No Status Records Found FOR RECORDS PERTAINING TO PATIENTS WHO ARE OR HAVE BEEN ENROLLED IN A CHEMICAL DEPENDENCY/SUBSTANCEABUSE PROGRAM, SOME INFORMATION MAY BE OMITTED. This clinical summary was aggregated from multiple sources. Caution should be exercised in using it in the provision of clinical care. This summary normalizes information from multiple sources, and as a consequence, information in this document may materially change the coding, format and clinical context of patient data. In addition, data may be omitted in some cases. CLINICAL DECISIONS SHOULD BE BASED ON THE PRIMARY CLINICAL RECORDS. [facility] provides no warranty or guarantee of the accuracy or completeness of information in this document.
== END 2023-02-11 14:57 | disposition home or self-care (01) ==
LOC: WC 14:56
PROVIDERS: PCP Family Medicine; Visit Provider Physician Assistant
DX: I87.2 Venous insufficiency (chronic) (peripheral) (principal); L60.3 Nail dystrophy; S90.511A Abrasion, right ankle, initial encounter; L84 Corns and callosities; I73.89 Other specified peripheral vascular diseases
CPT/HCPCS: 11721; G0463

== ENCOUNTER 2023-03-12 12:11 | Outpatient (REF) | payer MEDICARE, BC, SELFPAY ==
--- OUTSIDE RECORDS SUMMARY | 2023-03-12 12:24 | XMS_ITS | CCD ---
Author Name Unknown Address [address] [place] [address] Organization [facility] Care Team Providers Care Chemical Dependency Attendant Name Role Phone Giana Griffiths Unavailable Hunter Brown Unavailable [phone] MD Gypsy Mcmahon Primary Care Provider [phone] MD Gypsy Mcmahon Attending Provider MD Hunter Brown Attending Provider Gypsy Mcmahon Unavailable GYPSY MCMAHON Primary Care Physician [phone] DR GYPSY MCMAHON Admitting Unavailable MCMAHON, DR GYPSY Olvera Consulting Unavailable MCMAHON, DR GYPSY Olvera Attending Unavailable MCMAHON, DR GYPSY Olvera Primary Care Unavailable VALENTINA, DR REY Bustamante Attending Unavailabl e VALENTINA, DR REY Bustamante Consulting Unavailabl e VALENTINA, DR REY Bustamante Admitting Unavailabl e MCMAHON, DR GYPSY Olvera Primary Care Unavailable ÁNGELADARRION ., TIFFANIE VALLES Consulting Unavailjhonatan e MCMAHON, DR GYPSY Olvera Admitting Unavailable MCMAHON, DR GYPSY Olvera Attending Unavailable MCMAHON, DR GYPSY Olvera Primary Care Unavailable MCMAHON, DR GYPSY Olvera Consulting Unavailable MCMAHON, DR GYPSY Olvera Primary Care Unavailable MCMAHON, DR GYPSY Olvera Admitting Unavailable MCMAHON, DR GYPSY Olvera Attending Unavailable MCMAHON, DR GYPSY Olvera Consulting Unavailable LISANDRO, DR GYPSY Olvera Admitting Unavailable LISANDRO, DR GYPSY Olvera Consulting Unavailable LISANDRO, DR GYPSY Olvera Attending Unavailable LISANDRO, DR GYPSY Olvera Primary Care Unavailable LISANDRO, DR GYPSY Olvera Primary Care [...] MCMAHON, DR GYPSY Olvera Primary Care Unavailable REINVELMA, DR REY Bustamante Admitting Unavailabl e REINECK, DR REY Bustamante Attending Unavailabl e REINECK, DR REY Bustamante Consulting Unavailabl e MCMAHON, DR GYPSY Olvera Primary Care Unavailable MCMAHON, DR GYPSY Olvera Primary Care Unavailable EMILIE HUGHES Consulting Unavailable ANNALISA ., EMILIE Admitting Unavailable EMILIE HUGHES Attending Unavailable CLAU SHAH Consulting Unavailable FAWWAD, MCCORD H Admitting Unavailable MILTON ., MR GIBBONS Consulting Unavailable FASELENE, MCCORD H Attending Unavailable MCMAHON, DR GYPSY Olvera Primary Care Unavailable ANN LEON Consulting Unavailable SAMSA .KANDI Consulting Unavailable HERNANDO HAMLIN Consulting Unavailable FAWWAD, MCCORD H Consulting Unavailable KLGIANA MCKEON Consulting Unavailable KIM ., KATIE HOWELL Consulting Unavailable JUNGERMANN, JENNIFER Consulting Unavailable GEMBUS, ROBERT Consulting Unavailable ANG ROMAN Consulting Unavailable HIGHLANDER, CLAU Shrestha Attending Unavailable HIGHLANDER, CLAU Shrestha Admitting Unavailable MCMAHON, DR GYPSY Olvera Primary Care Unavailable Jose G Ellington Unavailable ELTAPATSY, EHAB Attending Unavailable BORISTAPATSY, EHAB Attending Unavailable Malathi Velázquez Unavailable Marvin KWON Attending Unavailable DEB, MALATHI E Attending Unavailable DEB, MALATHI E Attending Unavailable GYPSY MCMAHON Referring Unavailable DEB, MALATHI Olvera Attending Unavailable DEB, MALATHI E Attending Unavailable DEB, MALATHI E Admitting Unavailable DEB, MALATHI E Attending Unavailable DEB, MALATHI E Referring Unavailable MD Jacinto Max Attending Provider MD Jacinto Max Referring Provider MD Gypsy Mcmahon Primary Care Provider Gypsy Mcmahon Attending Unavailable Gypsy Mcmahon Admitting Unavailable Hunter Brown Attending UnavailHunter Grimes Admitting UnavailGypsy Rodas Primary Care Unavailable Jacinto Max Attending Unavailable Jacinto Max Admitting Unavailable Gypsy Mcmahon Primary Care Unavailable Jacinto Max Referring Unavailable Allergies Allergy Classification Reported Allergen(s) Allergy Type Date of Onset Reaction(s) Facility (20 sources) Promethazine; 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: [promethazine] Drug Allergy 02-04-20 13 anaphylaxis, Anaphylaxis (disorder) [facility] (20 sources) histamines Drug allergy Unknown [employer] Other (5 sources) Histamine H2 Inhibitors; 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: [Histamine H2 Inhibitors] Allergy to substance 07-16-19 13 Unknown Reaction [facility] (20 sources) levoFLOXacin; 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: [levofloxacin] Drug Allergy 07-01-19 23 Tremor (finding) [facility] (1 source) diphenhydrAMINE Drug Allergy 04-20-19 20 [facility] (1 source) ezetimibe Drug Allergy 04-20-19 20 [facility] (1 source) Gemfibrozil Drug Allergy 04-20-19 20 [facility] (2 sources) Levamisole; 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: [Phenergan] Drug Allergy 07-16-19 13 [facility] (1 source) NSAIDs Drug allergy (disorder) 04-20-19 20 [facility] (1 source) Nasal Decongestant Drug allergy (disorder) 04-20-19 [facility] (1 source) Darvocet-N 100 Drug allergy (disorder) 04-20-19 [facility] (6 sources) diphenhydrAMINE; 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: [diphenhydramine] Drug Allergy jumpy,, Unknown [facility] (9 sources) Penicillin; 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: [penicillin] Drug Allergy Eruption of skin (disorder) [facility] (1 source) Histamine; 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: [HISTAMINE] Drug Allergy 02-04-20 13 [facility] Repository (2 sources) Penicillins; 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: [Penicillins] Propensity to adverse reactions 02-25-19 Rash [facility] (1 source) Promethazine Drug Allergy 12-07-19 18 [facility] Repository Medications Current Medications Medication Drug Class(es) Dates Sig (Normalized) Sig (Original) alendronic acid 70 mg oral tablet (3 sources) Bisphosphonate Start: 12-06-2017 take 70 mg by [...] aspirin 81 mg delayed release oral tablet (9 sources) Platelet Aggregation Inhibitor, Nonsteroidal Anti-inflammatory Drug [...] 2017 11:00pm cholecalciferol 0.05 mg oral tablet (3 sources) Vitamin D Start: 12-06-2017 take 1 tablet by mouth once daily Cholecalciferol (Vitamin D3) (Vitamin D3) 2,000 unit Tablet Active 2000 UNIT PO Daily December 05, 2017 11:00pm ciprofloxacin 500 mg oral tablet (1 source) Quinolone Antimicrobial Start: 02-19-2022 take 1 tablet by mouth every twelve hours Ciprofloxacin HCl 500 MG 1 tablet Orally every 12 hrs for 7 day(s) Feb, Active clopidogrel (18 sources) P2Y12 Platelet Inhibitor Start: 09-22-2022 clopidogrel [...] for 90 days Jan, Active Cranberry preparation (5 sources) Non-Standardized Food Allergenic Extract, Non-Standardized Plant [...] 1 tablet Orally daily for 7 days Mar, Active hydroCHLOROthiazide 12.5 mg / losartan potassium 50 mg oral tablet (3 sources) Thiazide Diuretic, Angiotensin 2 Receptor Daryl Start: 12-06-2017 take 1 tablet by mouth once daily Losartan-Hydrochlorothiazide Active 1 TAB PO Daily December 05, 2017 11:00pm lactobacillus acidophilus [id number] unt oral tablet (2 sources) take 1 [...] ER 50 MG TAKE 1 TABLET DAILY Active take 1 tablet by ad th [...] Ordered Start: 05-14-2022 take 1 capsule by mo [facility] every twelve hours Macrobid 100 MG 1 capsule with food Orally every 12 hrs for 7 days May, Active pantoprazole 40 mg delayed release oral tablet (20 sources) Proton Pump Inhibitor Start: 05-14-[address] Tab Refills(s) 0 Start Date: 05/14/22 Status: Ordered simvastatin 40 mg oral tablet (20 sources) HMG-CoA Reductase Inhibitor Start: 12-06-2017 take 40 mg by mouth once daily in the evening Simvastatin Active 40 MG PO Every evening December 05, 2017 11:00pm spironolactone 25 mg oral tablet (20 sources) [...] Sep, Active vancomycin 125 mg oral capsule (12 sources) Glycopeptide Antibacterial Start: 01-26-2023 vancomycin 125 mg Cap 125 mg = 1 cap(s) Start Date: 01/26/23 Status: Ordered Start: 01-26-2023 Vancomycin HCl 250 MG 1 capsule four times a day for 14 days, then 1 capsule twice a day for 14 days Orally as directed for 28 days PLEASE CHECK ALLERGIES Jan, Active Start: 01-26-2023 take 1 capsule by mo [facility] every twenty-four hours Vancomycin HCl 250 MG 1 capsule Orally Once a day for 30 days PLEASE CHECK ALLERGIES Jan, Active Entyvio (20 sources) Integrin Receptor Antagonist Start: 05-19-2022 Entyvio mg, IV, Refills(s) 0 Start Date: 05/19/22 Status: Ordered Entyvio Active Vitamin D 1000 UNIT (6 sources) [facility] 1 tablet [facility] daily Vitamin D 1000 UNIT 1 [...] procedure, # 2 cap(s), Refills(s) 0, Pharmacy: [facility]/pharmacy #[id number], 178, cm, 05/19/22 13:31:00 EDT, Height/Length [...] to breakdown of skin] Onset: 11-10-2021 Chronic Complications of surgical procedures or medical care (1 source) Other complications following infusion, transfusion and therapeutic injection, initial encounter Episodic Coronary atherosclerosis and other heart disease (19 sources) Atherosclerotic heart disease of [place] coronary artery without angina pectoris; 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: [Coronary [...] source) Encounter for immunization Episodic Intestinal infection (3 sources) Enterocolitis due to Clostridium difficile, not [...] 02-04-2022 Chronic Other aftercare (1 source) Other retirement (current) drug therapy; 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: [OTH [facility] CURRENT DRUG THERAPY] Onset: 03-24-2022 Episodic Other [...] 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: [CHRONIC SINUSITIS UNSPECIFIED] Onset: 03-24-2022 Chronic Other upper respiratory infections (4 sources) Acute pharyngitis, unspecified; 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: [Acute upper respiratory infection, unspecified] Onset: 10-16-2021 Episodic Otitis media and related conditions (1 source) Unspecified mastoiditis, right ear; 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: [UNSPECIFIED MASTOIDITIS RIGHT EAR] Onset: 03-24-2022 Episodic Peripheral and visceral atherosclerosis (14 sources) 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; 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: [Atherosclerosis of [place] arteries of left leg with ulceration of [...] edema; 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: [LOCALIZED EDEMA] Onset: 10-16-2021 Episodic Residual codes; unclassified (1 source) Pain, unspecified Episodic Screening and history of mental health [...] EXPOS COVID-19] Onset: 08-15-2021 Unclassified (1 source) Enterocolitis due to Clostridium difficile, recurrent; 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: [Enterocolitis due to Clostridium difficile, recurrent] Onset: 02-25-2023 Unclassified (1 source) Microscopic colitis, unspecified; 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: [Microscopic colitis, unspecified] Onset: 10-29-2022 Urinary tract infections (20 sources) Acute cystitis [...] Onset: 11-02-2021 Episodic Other aftercare (1 source) snf (current) 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; 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: [FCI CURRENT USE OF ASPIRIN] Onset: 11-10-2021 Episodic Other diseases of veins and lymphatics (1 source) Venous insufficiency (chronic) (peripheral); 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: [VENOUS INSUFF CHRONIC PERIPHERAL] Onset: 11-10-2021 Episodic Other gastrointestinal disorders (2 sources) Full incontinence of feces; 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: [FULL INCONTINENCE OF FECES] Onset: 02-19-2022 Episodic Unclassified (5 sources) Finding of sensation of bladder 05-19-2022 Unclassified (1 source) CONTACT W/AND (SUSP) EXPOS COVID-19; 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: [CONTACT W/AND (SUSP) EXPOS COVID-19] Onset: 08-12-2021 Results Test Name Value Interpretation Reference Range Facility IntraOperative Documentson 0 02-12-2023 IntraOperative Documents [id number]#1.00TIFF [facility] Physician Orderon 02-12-2023 Physician Order [id number]#1.00TIFF [facility] Physician Order [id number]#1.00TIFF Normal [facility] ED Note-Physicianon 02-05-20 ED Note-Physician [id number]#1.00TIFF Normal [facility] Lab Reportson 02-04-2023 Lab Reports [id number]#1.00TIFF [facility] Lab Reports [id number]#1.00TIFF [facility] Lab Reports [id number]#1.00TIFF [facility] Consent for Treatmenton 01-09 Consent for Treatment [id number]#1.00TIFF [facility] Retail - Clinical Noteon Retail - Clinical Note [id number]#1.00TIFF [facility] Lab Reportson 01-28-2023 Lab Reports [id number]#1.00TIFF [facility] Physician Orderon 01-28-2023 Physician Order [id number]#1.00TIFF [facility] Urology Office/Clinic Noteon 01-27-2023 Urology Office/Clinic Note [...] d-mannose. We also talked about lyndsey and kombucha. S/p Cysto 06/09/22 - mildly prolapsed urethra, [...] Urnls Dip Stick Auto w/o Microscopy POC 12084 2. 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 Case discussed w GI, Dr Brown's BUSINESS OBJECTS CONSULTANT Katie. he agrees w above plan. 3. [...] the risks of side effects etc. Orders: 20433 Measure Post Void residual urine and/or bladder capacity by US- non-imaging Total time spent reviewing previous notes/results/external documents, preparing the chart, conducting the encounter with the patient and family, ordering tests/medications, and documenting the encounter was 40 minutes. Follow-up With When Contact Information MALATHI VIEIRA PA-C, URL [address] [place] [address] [phone] Additional Instructions: f/u in Spring Patient Education Urinary Tract Infection, Adult, Vsgc-qf-Temp Documentation recorded by the scribe Caprice Stratton accurately reflects the services(s) I performed and decisions made by me. Authenticated by Malathi Vieira PA-C on 01/27/2023 13:56:47. I, Caprice Stratton, personally scribed for Malathi Vieira PA-C on (more content not included)... [facility] Comment on above: Result Comment: Elec tronically Signed By: MALATHI VIEIRA PA-C\.br\Date and Time Signed: 01/27/23 13:57 EST\.br\Electronically Co-Signed By: Caprice Stratton\.br\Date and Time Co-Signed: 01/26/23 16:09 EST Ambulatory Visit Summaryon 1 03-29-2022 Ambulatory Visit Summary DELICIA HSU :1935 Visit Date:01/26/2023 Ambulatory Visit Instructions Your Diagnosis Recurrent UTI Feeling of incomplete bladder emptying Colitis Tests Performed Urnls Dip Stick Auto w/o Microscopy POC 82461 Your Care Team Attending Physician - MALATHI [...] MALATHI VIEIRA PA-C Where: [facility] Lab Reportson 01-26-2023 Lab Reports [id number]#1.00TIFF [facility] Patient Educationon 01-27-20 Patient Education Obstetrics and [...] these instructions at home: Medicines ? Take shrw-gph-fwhyier and prescription medicines only as told by [...] provider. Document Revised: 09/06/2020 Document Reviewed: 09/06/2020 [employer] Patient Education ? 2022 [employer] [facility] Lab Reportson 01-25-2023 Lab Reports [id number]#1.00TIFF [facility] Lab Reports [id number]#1.00TIFF [facility] Lab Reportson 12-04-2022 Lab Reports [id number]#1.00TIFF [facility] Physician Orderon 12-01-2022 Physician Order [id number]#1.00TIFF [facility] Office Visiton 11-11-2022 Follow-up visit [id number] Delicia Hsu Jean Carlos 1935 F Date Provider Department [place] 11/11/2022 [facility] Family History Problem Relation Age of Onset Aneurysm Mother Heart attack Father Family Status - Relation Status Age at Mother Father Level of Service:[address] [place] OFFICE/OUTPATIENT ESTABLISHED LOW MDM 20-29 MIN Normal [facility] Lab Reportson 09-25-2022 Lab Reports [id number]#1.00CD:127 [facility] Lab Reports [id number]#1.00CD:127 [facility] Physician Orderon 09-23-2022 Physician Order [id number]#1.00CD:127 [facility] [place] 09-23-2022 Screens [id number]#1.00CD:127 [facility] Ambulatory Visit Summaryon 0 09-22-2022 Ambulatory Visit Summary DELICIA HSU :1935 Visit Date:09/22/2022 Ambulatory Visit Instructions Your Diagnosis Recurrent UTI Feeling of incomplete bladder emptying Colitis Your Care Team Attending Physician - MALATHI [...] Follow-Up Appointments Wednesday 1:00 PM EST With: MALATHI VIEIRA PA-C Where: [facility] Patient Educationon 09-23-19 23 Patient Education Obstetrics [...] these instructions at home: Medicines ? Take vvta-xvu-zthkanb and prescription medicines only as told by [...] provider. Document Revised: 09/06/2020 Document Reviewed: 09/06/2020 [employer] Patient Education ? 2022 el?. [facility] Urology Office/Clinic Noteon 09-22-2022 Urology Office/Clinic Note [...] symptoms not resolved. C&S this morning at [facility] ( not finalized) UTI symptoms Memory issues, [...] resolved per daughter. C&S this morning at [facility] (not finalized) - will call pt w/ [...] up having to send a U.Cx to [facility] so we can review the results. [...] When Contact Information MALATHI VIEIRA PA-C, URL [address] [place] [address] Additional Instructions: Patient Education Urinary Tract Infection, Adult, Onlh-ju-Gprf IJazlyn, personally scribed for Malathi Vieira PA-C on 09/22/2022 15:36:00. . Documentation recorded by the bridger Lucero accurately reflects the services(s) I performed [...] 3 mg (more content not included)... [facility] Comment on above: Result Comment: Elec tronically Signed By: MALATHI VIEIRA PA-C\.br\Date and Time Signed: 09/22/22 16:16 EDT\.br\Electronically Co-Signed By: Jazlyn Lucero\.br\Date and Time Co-Signed: 09/22/22 15:38 EDT Lab Reportson 07-02-2022 Lab Reports [id number]#1.00CD:127 [facility] Office Visiton 06-30-2022 Follow-up visit [id number] Delicia Hsu 1935 F Date Provider Department Center 06/30/2022 KulwinderJAKE BARRY CARD [facility] Family History Problem Relation Age of Onset Aneurysm Mother Heart attack Father Family Status - Relation Status Age at Mother Father Level of Service:67096 [place] OFFICE/OUTPATIENT NEW MODERATE MDM 45-59 MINUTES Normal [facility] Consent for Procedure/Surger yon 06-10-2022 Consent for Procedure/Surgery [id number]#1.00CD:127 [facility] Patient Educationon 06-10-19 Patient Education Obstetrics and [...] these instructions at home: Medicines ? Take slgq-nns-gflucxp and prescription medicines only as told by [...] provider. Document Revised: 09/06/2020 Document Reviewed: 09/06/2020 [employer] Patient Education ? 2022 el?. [facility] Urology Office/Clinic Noteon 06-09-2022 Urology Office/Clinic Note [...] EDT [facility] [address], [place] [address] [phone] Additional Instructions: Patient Education Urinary Tract Infection, Adult, Widx-fe-Cnwc Rajani Aviles, personally scribed for Dr. Kwon on 06/09/2022 14:30:17. . Documentation recorded by the rafaelibRajani olvera, accurately reflects the services(s) I performed and decisions made by me. Problem List/Past Medical History Ongoing Colitis Feeling of incomplete bladder emptying Hyperlip (more content not included)... [facility] Comment on above: Result Comment: Elec tronically Signed By: Marvin KWON MD\.br\Date and Time Signed: 06/09/22 14:35 EDT\.br\Electronically Co-Signed By: Rajani Locke MA.br\Date and Time Co-Signed: 06/09/22 14:30 EDT Lab Reportson 06-02-2022 Lab Reports [id number]#1.00CD:127 [facility] Lab Reports [id number]#1.00CD:127 [facility] Lab Reports [id number]#1.00CD:127 [facility] Lab Reports [id number]#1.00CD:127 [facility] RAD - CT Reporton 06-02-2022 RAD - CT Report [id number]#1.00CD:127 Normal [facility] CT ABD/PELVIS WO CONon 05-27 CT ABD/PELVIS [...] by: MI NUÑEZ Date: 2022-05-27 10:34 Normal [facility] Physician Referralon 023 Physician Referral [id number]#1.00CD:127 [facility] Ambulatory Visit Summaryon 0 05-19-2022 Ambulatory Visit Summary DELICIA HSU :1935 Visit Date:05/19/2022 Ambulatory Visit Instructions Your Diagnosis Recurrent UTI Feeling of incomplete bladder emptying Colitis Tests Performed Urnls Dip Stick Auto w/o Microscopy POC 89028 CT Abdomen/Pelvis w/ Contrast -- Results Pending [...] MALATHI VIEIRA PA-C, URL When: Where: [address] [place] [address] Medications What How Much When Instructions New [...] Urnls Dip Stick Auto w/o Microscopy POC 33571 (05/19/2022) Bilirubin Urine Dipstick - Negative Blood Urine Dipstick - Negative Glucose Urine Dipstick - Negative Ketones Urine Dipstick - Trace - 5 mg/dl Leukocytes Urine Dipstick - 1+ Small Nitrite Urine Dipstick - Negative Protein Urine Dipstick - Negative Specific Ajo Urine Dipstick - 1.020 Urine Appearance Urine [...] a sper (more content not included)... Normal [facility] Patient Educationon 05-20-19 Patient Education Obstetrics and [...] this condition includes: ? Antibiotic medicine. ? Ifva-zri-apehwab medicines to treat discomfort. ? Drinking enough [...] these instructions at home: Medicines ? Take dgrk-tpk-onlqvam and prescription medicines only as told by [...] This in (more content not included)... Normal [facility] Patient Letter FTMCon 2022 Patient [place] [facility] [place]Inserted Image. Delaney ble to display) May 19, 2022 Dear Ms Hsu, My apologies that I forgot to write this down for you at your visit today. Here are the dizk-gpu-bsqxlzk supplements I would recommend for UTI prevention: probiotics D-mannose cranberry extract You should be able to find combination products that have all 3 ingredients. Provider Signature: Malathi Vieira PA-C Physician Combat Systems Operator [facility] [address] [place] [address] Normal [facility] CULTURE URINEon 05-14-2022 CULTURE URINE Culture Observations [...] F Trimethoprim/Sulfamethoxazol e <=20 S F Normal [facility] Comment on above: Performed By: #### U RCX #### [facility] [address] [place] [address] Dr. Anthony Bonilla UA RANDOMon 05-11-2022 Bilirubin Ql (U) Negative Normal NEGATIVE [facility] Comment on above: Performed By: #### U RCX #### [facility] [address] [place] [address] Dr. Anthony Bonilla Clarity (U) SL CLOUDY Abnormal CLEAR [facility] Comment on above: Performed By: #### U RCX #### [facility] [address] [place] [address] Dr. Anthony Bonilla Color (U) LT. YELLOW Normal YELLOW [facility] Comment on above: Performed By: #### U RCX #### [facility] [address] [place] [address] Dr. Anthony Bonilla Glucose Ql (U) Negative Normal NEGATIVE [facility] Comment on above: Performed By: #### U RCX #### [facility] [address] [place] [address] Dr. Anthony Bonilla Hemoglobin Ql (U) Negative Normal NEGATIVE [facility] Comment on above: Performed By: #### U RCX #### [facility] [address] [place] [address] Dr. Anthony Bonilla Ketones Ql (U) Negative Normal NEGATIVE [facility] Comment on above: Performed By: #### U RCX #### [facility] [address] [address] [address] Anthony Bonilla LEUKOCYTES MODERATE Abnormal NEGATIVE [facility] Comment on above: Performed By: #### U RCX #### [facility] [address] [place] [address] Dr. Anthony Bonilla Nitrite Ql (U) Negative Normal NEGATIVE [facility] Comment on above: Performed By: #### U RCX #### [facility] [address] [place] [address] Dr. Anthony Bonilla pH (U) 5.5 [pH] Normal 5-9 [facility] Comment on above: Performed By: #### U RCX #### [facility] [address] [place] [address] Dr. Anthony Bonilla SPEC GRAVITY 1.020 Normal 1.005-<=1. 025 [facility] Comment on above: Performed By: #### U RCX #### [facility] [address] [place] [address] Dr. Anthony Bonilla UA PROTEIN Negative Normal NEGATIVE/ TRACE [facility] Comment on above: Performed By: #### U RCX #### [facility] [address] [place] [address] Dr. Anthony Bonilla Urobilinogen Qn (U) 0.2 {Gen'U}/dL Normal 0.2 - 1. 0 [facility] Comment on above: Performed By: #### U RCX #### [facility] [address] [place] [address] Dr. Anthony Boinlla CULTURE URINEon 05-01-2022 CULTURE URINE Isolate 1 [...] F Trimethoprim/Sulfamethoxazol e <=20 S F Normal [facility] Comment on above: Performed By: #### U RCX #### [facility] [address] [place] [address] Dr. Anthony Bonilla CULTURE URINEon 04-16-2022 CULTURE [...] R F Nitrofurantoin 64 I F Normal [facility] Comment on above: Performed By: #### U RCX #### [facility] [address] [place] [address] Dr. Anthony Bonilla UA RANDOMon 04-14-2022 Bilirubin Ql (U) Negative Normal NEGATIVE [facility] Comment on above: Performed By: #### U RCX #### [facility] [address] [place] [address] Dr. Anthony Bonilla Clarity (U) CLEAR Normal CLEAR [facility] Comment on above: Performed By: #### U RCX #### [facility] [address] [place] [address] Dr. Anthony Bonilla Color (U) LT. YELLOW Normal YELLOW [facility] Comment on above: Performed By: #### U RCX #### [facility] [address] [place] [address] Dr. Anthony Bonilla Glucose Ql (U) Negative Normal NEGATIVE [facility] Comment on above: Performed By: #### U RCX #### [facility] [address] [place] [address] Dr. Anthony Bonilla Hemoglobin Ql (U) Negative Normal NEGATIVE [facility] Comment on above: Performed By: #### U RCX #### [facility] [address] [address] [address] Anthony Bonilla Ketones Ql (U) Negative Normal NEGATIVE [facility] Comment on above: Performed By: #### U RCX #### [facility] [address] [place] [address] Dr. Anthony Bonilla LEUKOCYTES MODERATE Abnormal NEGATIVE [facility] Comment on above: Performed By: #### U RCX #### [facility] [address] [place] [address] Dr. Anthony Bonilla Nitrite Ql (U) Negative Normal NEGATIVE [facility] Comment on above: Performed By: #### U RCX #### [facility] [address] [place] [address] Dr. Anthony Bonilla pH (U) 5.5 [pH] Normal 5-9 [facility] Comment on above: Performed By: #### U RCX #### [facility] [address] [place] [address] Dr. Anthony Bonilla SPEC GRAVITY 1.020 Normal 1.005-<=1. 025 [facility] Comment on above: Performed By: #### U RCX #### [facility] [address] [place] [address] Dr. Anthony Bonilla UA PROTEIN Negative Normal NEGATIVE/ TRACE [facility] Comment on above: Performed By: #### U RCX #### [facility] [address] [place] [address] Dr. Anthony Bonilla Urobilinogen Qn (U) 0.2 {Gen'U}/dL Normal 0.2 - 1. 0 [facility] Comment on above: Performed By: #### U RCX #### [facility] [address] [place] [address] Dr. Anthony Bonilla Urinalysis - DIPSTICKon 03-12 Appearance (U) clear [employer] Other Bilirubin Ql (U) small [employer] Other Color (U) dark yellow [employer] Other Glucose Ql (U) Negative [employer] Other Hemoglobin Ql (U) Negative LTG [employer] Other Ketones Ql (U) trace [employer] Other Leukocyte esterase Test strip Ql (U) small [employer] Other Nitrite Ql (U) Negative [employer] Other pH (U) 5.0 [pH] [employer] Other Protein Ql (U) Negative [employer] Other Specific gravity (U) [Rel density] 1.015 [employer] Other Urobilinogen (U) [Mass/Vol] 0.2 mg/dL [employer] Other Urinalysis - DIPSTICK [employer] Other Urine Cultureon 03-30-2022 Bacteria identified Cx Nom (U) ORGANISM: Yeast Like Organism (O:YLO) Noble Count 10,000 UNABLE TO ISOLATE FOR IDENTIFICATION PERFORMED BY: [place] [address] PATHOLOGIST STAINED [employer] WIND[employer] DESIGNER TIEN VELASQUEZ M.D. [facility] Comment on above: Performed By: #### C UU #### [address] Urine Culture 10,000 [employer] Other Bacteria identified Cx Nom (U) [employer] Other CULTURE URINEon 03-23-2022 CULTURE URINE Isolate 1 Pseudomonas aeruginosa >100,000 cfu/mL of ORGANISM 1 Pseudomonas aeruginosa ANTIBIOTIC M.I.C RX STATUS Piperacillin/Tazobactam 8 S F Ceftazidime 4 S F Imipenem 1 S F Amikacin <=2 S F Gentamicin <=1 S F Tobramycin <=1 S F Ciprofloxacin <=0.25 S F Levofloxacin 0.5 S F Normal [facility] Comment on above: Performed By: #### U RCX #### [facility] [address] [place] [address] Dr. Anthony Bonilla CARDIAC DARWIN ADMITon 023 CK [Catalytic activity/Vol] 137 U/L Normal 26-192 [facility] Comment on above: Performed By: #### U RCX #### [facility] [address] [place] [address] Dr. Anthony Bonilla CK.MB [Mass/Vol] 1.05 ng/mL Normal <=3.60 [facility] Comment on above: Performed By: #### U RCX #### [facility] [address] [place] [address] Dr. Anthony Bonilla HSTROP 17.6 pg/mL Normal 4.0-51.3 [facility] Comment on above: Result Comment: CUT- OFF POINTS HAVE BEEN ESTABLISHED BASED ON THE FOURTH UNIVERSAL DEFINITIONS OF MYOCARDIAL INFARCTION. THE UPPER REFERENCE LIMIT (URL) OF TROPONIN, DEFINED THE 99TH PERCENTILE OF cTnI DISTRIBUTION IN A REFERENCE POPULATION, HAS BEEN CONFIRMED THE DECISION THRESHOLD FOR [place] DIAGNOSIS. Performed By: #### U RCX #### [facility] [address] [place] [address] Dr. Anthony Bonilla CANDIDA 72 ng/mL Normal 9-82 [facility] Comment on above: Performed By: #### U RCX #### [facility] [address] [place] [address] Dr. Anthony Bonilla CBC AUTO DIFFon 03-20-2022 BASO # 0.0 103/ul Normal 0.0-0.1 [facility] Comment on above: Performed By: #### C BC #### [facility] [address] [place] [address] Dr. Anthony Bonilla Basophils/100 WBC (Bld) 0.3 % Normal 0.2-2.0 [facility] Comment on above: Performed By: #### C BC #### [facility] [address] [place] [address] Dr. Anthony Bonilla EO # 0.0 103/ul Normal 0.0-0.7 [facility] Comment on above: Performed By: #### C BC #### [facility] [address] [place] [address] Dr. Anthony Bonilla Eosinophils/100 WBC (Bld) 0.1 % Critically low 0.9-7.0 [facility] Comment on above: Performed By: #### C BC #### [facility] [address] [place] [address] Dr. Anthony Bonilla Erythrocyte distribution width (RBC) [Ratio] 15.9 % Critically high 11.0-15.0 [facility] Comment on above: Performed By: #### C BC #### [facility] [address] [place] [address] Dr. Anthony Bonilla Hematocrit (Bld) [Volume fraction] 33.6 % Critically low 36.0-48.0 [facility] Comment on above: Performed By: #### C BC #### [facility] [address] [place] [address] Dr. Anthony Bonilla Hemoglobin (Bld) [Mass/Vol] 11.2 g/dL Critically low 12.0-16.0 [facility] Comment on above: Performed By: #### C BC #### [facility] [address] [place] [address] Dr. Anthony Bonilla IG # 0.04 10e3/ul Critically high 0.00-0.03 [facility] [place] [facility] Comment on above: Performed By: #### C BC #### [facility] [address] [place] [address] Dr. Anthony Bonilla IG % 0.3 % Normal 0.0-0.5 [facility] Comment on above: Performed By: #### C BC #### [facility] [address] [place] [address] Dr. Anthony Bonilla LYMPH # 0.8 103/ul Critically low 1.2-3.8 [facility] Comment on above: Performed By: #### C BC #### [facility] [address] [place] [address] Dr. Anthony Bonilla Lymphocytes/100 WBC (Bld) 6.4 % Critically low 20.5-60.0 [facility] Comment on above: Performed By: #### C BC #### [facility] [address] [place] [address] Dr. Anthony Bonilla MANUAL DIFF REQ NO Normal [facility] Comment on above: Performed By: #### C BC #### [facility] [address] [place] [address] Dr. Anthony Bonilla MCH (RBC) [Entitic mass] 28.9 pg Normal 26.7-34.0 [facility] Comment on above: Performed By: #### C BC #### [facility] [address] [place] [address] Dr. Anthony Bonilla MCHC (RBC) [Mass/Vol] 33.3 g/dL Normal 29.9-35.2 [facility] Comment on above: Performed By: #### C BC #### [facility] [address] [place] [address] Dr. Anthony Bonilla MCV (RBC) [Entitic vol] 86.8 fL Normal 81.0-99.0 [facility] Comment on above: Performed By: #### C BC #### [facility] [address] [place] [address] Dr. Anthony Bonilla MONO # 1.1 103/ul Critically high 0.3-0.8 [facility] Comment on above: Performed By: #### C BC #### [facility] [address] [place] [address] Dr. Anthony Bonilla Monocytes/100 WBC (Bld) 8.3 % Normal 1.7-12.0 [facility] Comment on above: Performed By: #### C BC #### [facility] [address] [place] [address] Dr. Anthony Bonilla NEUT # 11.2 103/ul Critically high 1.4-6.5 [facility] Comment on above: Performed By: #### C BC #### [facility] [address] [place] [address] Dr. Anthony Bonilla Neutrophils/100 WBC (Bld) 84.6 % Critically high 43.0-75.0 [facility] Comment on above: Performed By: #### C BC #### [facility] [address] [place], [place] [address] Dr. Anthony Bonilla Platelet mean volume (Bld) [Entitic vol] 9.7 fL Normal 9.5-13.5 [facility] Comment on above: Performed By: #### C BC #### [facility] [address] [place], [place] [address] Dr. Anthony Bonilla PLT 274 103/ul Normal 150-450 [facility] Comment on above: Performed By: #### C BC #### [facility] [address] [place], [place] [address] Dr. Anthony Bonilla RBC 3.87 106/ul Critically low 4.20-5.40 [facility] Comment on above: Performed By: #### C BC #### [facility] [address] [place], [place] [address] Dr. Anthony Bonilla WBC 13.2 103/ul Critically high 4.0-11.0 [facility] Comment on above: Performed By: #### C BC #### [facility] [address] [place], [place] [address] HEAD WO CONon [...] CLAU SHAH Date: 2022-03-20 20:30 Normal [facility] ER URINE PROFILEon 3 Bilirubin Ql (U) Negative Normal NEGATIVE [facility] Comment on above: Performed By: #### C BC #### [facility] [address] [place] [address] Dr. Anthony Bonilla Clarity (U) CLEAR Normal CLEAR [facility] Comment on above: Performed By: #### C BC #### [facility] [address] [place] [address] Dr. Anthony Bonilla Color (U) LT. YELLOW Normal YELLOW [facility] Comment on above: Performed By: #### C BC #### [facility] [address] [place] [address] Dr. Anthony Bonilla ERUAHD A micrscopic examina tion will be performed if indicated. Normal [facility] Comment on above: Performed By: #### C BC #### [facility] [address] [place] [address] Dr. Anthony Bonilla Glucose Ql (U) Negative Normal NEGATIVE [facility] Comment on above: Performed By: #### C BC #### [facility] [address] [place] [address] Dr. Anthony Bonilla Hemoglobin Ql (U) LARGE Abnormal NEGATIVE [facility] Comment on above: Performed By: #### C BC #### [facility] [address] [place] [address] Dr. Anthony Bonilla Ketones Ql (U) Negative Normal NEGATIVE [facility] Comment on above: Performed By: #### C BC #### [facility] [address] [place] [address] Dr. Anthony Bonilla LEUKOCYTES SMALL Abnormal NEGATIVE [facility] Comment on above: Performed By: #### C BC #### [facility] [address] [place] [address] Dr. Anthony Bonilla Nitrite Ql (U) Positive Abnormal NEGATIVE [facility] Comment on above: Performed By: #### C BC #### [facility] [address] [place] [address] Dr. Anthony Bonilla pH (U) 7.0 [pH] Normal 5-9 [facility] Comment on above: Performed By: #### C BC #### [facility] [address] [place] [address] Dr. Anthony Bonilla Protein (U) [Mass/Vol] 30 mg/dL Abnormal NEGATIVE/ TRACE [facility] Comment on above: Performed By: #### C BC #### [facility] [address] [place] [address] Dr. Anthony Bonilla SPEC GRAVITY 1.015 Normal 1.005-<=1. 025 [facility] Comment on above: Performed By: #### C BC #### [facility] [address] [place] [address] Dr. Anthony Bonilla UR MICRO IND INDICATED Normal [facility] Comment on above: Performed By: #### C BC #### [facility] [address] [place] [address] Dr. Anthony Bonilla Urobilinogen Qn (U) 1.0 {Gen'U}/dL Normal 0.2 - 1. 0 [facility] Comment on above: Performed By: #### C BC #### [facility] [address] [place] [address] Dr. Anthony Bonilla PROF 14(COMP METB)on 023 Albumin [Mass/Vol] 3.4 g/dL Normal 3.4-5.0 [facility] Comment on above: Performed By: #### U RCX #### [facility] [address] [place] [address] Dr. Anthony Bonilla Albumin/Globulin [Mass ratio] 1.2 {ratio} Normal [facility] Comment on above: Performed By: #### U RCX #### [facility] [address] [address] [address] Anthony Bonilla ALP [Catalytic activity/Vol] 26 U/L Critically low 46-116 [facility] Comment on above: Performed By: #### U RCX #### [facility] [address] [address] [address] Anthony Bonilla ALT [Catalytic activity/Vol] 21 U/L Normal 14-59 [facility] Comment on above: Performed By: #### U RCX #### [facility] [address] [address] [address] Anthony Bonilla Anion gap [Moles/Vol] 13.7 mmol/L Normal [facility] Comment on above: Performed By: #### U RCX #### [facility] [address] [address] [address] Anthony Bonilla AST [Catalytic activity/Vol] 20 U/L Normal 15-37 [facility] Comment on above: Performed By: #### U RCX #### [facility] [address] [address] [address] Anthony Bonilla Bilirubin [Mass/Vol] 1.2 mg/dL Critically high 0.2-1.0 [facility] Comment on above: Performed By: #### U RCX #### [facility] [address] [address] [address] Anthony Bonilla Calcium [Mass/Vol] 9.4 mg/dL Normal 8.5-10.1 [facility] Comment on above: Performed By: #### U RCX #### [facility] [address] [address] [address] Anthony Bonilla Chloride [Moles/Vol] 99 mmol/L Normal 98-107 [facility] Comment on above: Performed By: #### U RCX #### [facility] [address] [address] [address] Anthony Bonilla CO2 [Moles/Vol] 29.1 mmol/L Normal 21.0-32.0 [facility] Comment on above: Performed By: #### U RCX #### [facility] [address] [address] [address] Anthony Bonilla Creatinine [Mass/Vol] 1.02 mg/dL Normal 0.55-1.02 [facility] Comment on above: Performed By: #### U RCX #### [facility] [address] [address] [address] Anthony Bonilla EGFR-AF VENEZUELAN >60 Normal >=60 [facility] Comment on above: Performed By: #### U RCX #### [facility] [address] [address] [address] Anthony Bonilla EGFR-NON AF VENEZUELAN 52 mL/min/1.73m2 Critically low >=60 [facility] Comment on above: Performed By: #### U RCX #### [facility] [address] [place] [address] Dr. Anthony Bonilla Globulin (S) [Mass/Vol] 2.9 g/dL Normal [facility] Comment on above: Performed By: #### U RCX #### [facility] [address] [address] [address] Anthony Bonilla Glucose [Mass/Vol] 98 mg/dL Normal 74-106 [facility] Comment on above: Performed By: #### U RCX #### [facility] [address] [address] [address] Anthony Bonilla Potassium [Moles/Vol] 3.8 mmol/L Normal 3.5-5.1 [facility] Comment on above: Performed By: #### U RCX #### [facility] [address] [address] [address] Anthony Bonilla Protein [Mass/Vol] 6.3 g/dL Critically low 6.4-8.2 [facility] Comment on above: Performed By: #### U RCX #### [facility] [address] [address] [address] Anthony Bonilla Sodium [Moles/Vol] 138 mmol/L Normal 136-145 [facility] Comment on above: Performed By: #### U RCX #### [facility] [address] [address] [address] Anthony Bonilla Urea nitrogen [Mass/Vol] 16.0 mg/dL Normal 7.0-18.0 [facility] Comment on above: Performed By: #### U RCX #### [facility] [address] [place] [address] Dr. Anthony Bonilla Urea nitrogen/Creatinine [Mass ratio] 15.7 mg/mg Normal [facility] Comment on above: Performed By: #### U RCX #### [facility] [address] [place] [address] Dr. Anthony Bonilla URINE MICROSCOPIC ONLYon BACTERIA LARGE Abnormal NONE SEEN [facility] Comment on above: Performed By: #### C BC #### [facility] [address] [place] [address] Dr. Anthony Bonilla Bacteria identified Cx Nom (U) INDICATED Normal [facility] Comment on above: Performed By: #### C BC #### [facility] [address] [place] [address] Dr. Anthony Bonilla CAST NONE SEEN Normal NONE SEEN [facility] Comment on above: Performed By: #### C BC #### [facility] [address] [place] [address] Dr. Anthony Bonilla Crystals LM Nom (Urine sed) NONE SEEN Normal NONE SEEN [facility] Comment on above: Performed By: #### C BC #### [facility] [address] [place] [address] Dr. Anthony Bonilla Epithelial cells LM Ql (Urine sed) FEW Abnormal NONE SEEN /RARE [facility] Comment on above: Performed By: #### C BC #### [facility] [address] [place] [address] Dr. Anthony Bonilla MUCOUS NONE SEEN Normal NONE SEEN [facility] Comment on above: Performed By: #### C BC #### [facility] [address] [place] [address] Dr. Anthony Bonilla RBC 10-20 Abnormal 0-2 [facility] Comment on above: Performed By: #### C BC #### [facility] [address] [place] [address] Dr. Anthony Bonilla WBC 50-75 Abnormal NONE SEEN [facility] Comment on above: Performed By: #### C BC #### [facility] [address] [place] [address] Dr. Anthony Bonilla CALPROTECTIN, FECALon 2022 Calprotectin, Fecal 416 ug/g Critically high 0-120 [facility] Comment on above: Result Comment: Conc entration Interpretation Follow-Up <16 - 50 ug/g Normal None >50 -120 ug/g Borderline Re-evaluate in 4-6 weeks >120 ug/g Abnormal Repeat as clinically indicated Performed By: #### U RCX #### [facility] [address] [place] [address] Dr. Anthony Bonilla QUANTIFERON TB GOLD PLUSon 0 02-19-2022 QuantiFERON Criteria Comment Normal [facility] Comment on above: Result Comment: Butch [...] test. Performed By: #### U RCX #### [facility] [address] [place] [address] Dr. Anthony Bonilla QuantiFERON Incubation Incubation performed. Normal [facility] Comment on above: Performed By: #### U RCX #### [facility] [address] [place] [address] Dr. Anthony Bonilla QuantiFERON Mitogen Value >10.00 Normal [facility] Comment on above: Performed By: #### U RCX #### [facility] [address] [place] [address] Dr. Anthony Bonilla QuantiFERON Nil Value 0.07 IU/mL Normal [facility] Comment on above: Performed By: #### U RCX #### [facility] [address] [place] [address] Dr. Anthony Bonilla QuantiFERON TB1 Ag Value 0.08 IU/mL Normal [facility] Comment on above: Performed By: #### U RCX #### [facility] [address] [address] [address] Anthony Bonilla QuantiFERON TB2 Ag Value 0.07 IU/mL Normal [facility] Comment on above: Performed By: #### U RCX #### [facility] [address] [place] [address] Dr. Anthony Bonilla QuantiFERON-TB Gold Plus Negative Normal Negative [facility] Comment on above: Result Comment: No r esponse to M tuberculosis antigens detected. Infection with M tuberculosis is unlikely, but high risk individuals should be considered for additional testing (ATS/IDSA/CDC Clinical Practice Guidelines, 2017). The reference range is an Antigen minus Nil result of <0.35 IU/mL. Chemiluminescence immunoassay methodology Performed By: #### U RCX #### [facility] [address] [place] [address] Dr. Anthony Bonilla HEP B SURFACE ANTIGEN SCREEN on 02-18-2022 HBsAg Screen Negative Normal Negative [facility] Comment on above: Performed By: #### U RCX #### [facility] [address] [place] [address] Dr. Anthony Bonilla HEPATITIS B CORE, IgMon 02-08 Hep B Core Ab, IgM Negative Normal Negative [facility] Comment on above: Performed By: #### U RCX #### [facility] [address] [place] [address] Dr. Anthony Bonilla HEPATITIS B SURFACE ANTIBODY , QUANTon 02-18-2022 Hepatitis B Surf AB Quant <3.1 Critically low Immunity>9 .9 [facility] Comment on above: Result Comment: Stat us of Immunity Anti-HBs Level Inconsistent with Immunity 0.0 - 9.9 Consistent with Immunity >9.9 Performed By: #### C BC #### [facility] [address] [place] [address] Dr. Anthony Bonilla CBC AUTO DIFFon 02-17-2022 BASO # 0.0 103/ul Normal 0.0-0.1 [facility] Comment on above: Performed By: #### U RCX #### [facility] [address] [place] [address] Dr. Anthony Bonilla Basophils/100 WBC (Bld) 0.4 % Normal 0.2-2.0 [facility] Comment on above: Performed By: #### U RCX #### [facility] [address] [place] [address] Dr. Anthony Bonilla EO # 0.0 103/ul Normal 0.0-0.7 [facility] Comment on above: Performed By: #### U RCX #### [facility] [address] [place] [address] Dr. Anthony Bonilla Eosinophils/100 WBC (Bld) 0.5 % Critically low 0.9-7.0 [facility] Comment on above: Performed By: #### U RCX #### [facility] [address] [place] [address] Dr. Anthony Bonilla Erythrocyte distribution width (RBC) [Ratio] 14.7 % Normal 11.0-15.0 [facility] Comment on above: Performed By: #### U RCX #### [facility] [address] [place] [address] Dr. Anthony Bonilla Hematocrit (Bld) [Volume fraction] 33.2 % Critically low 36.0-48.0 [facility] Comment on above: Performed By: #### U RCX #### [facility] [address] [place] [address] Dr. Anthony Bonilla Hemoglobin (Bld) [Mass/Vol] 11.0 g/dL Critically low 12.0-16.0 [facility] Comment on above: Performed By: #### U RCX #### [facility] [address] [place] [address] Dr. Anthony Bonilla IG # 0.02 10e3/ul Normal 0.00-0.03 [facility] Comment on above: Performed By: #### U RCX #### [facility] [address] [place] [address] Dr. Anthony Bonilla IG % 0.2 % Normal 0.0-0.5 [facility] Comment on above: Performed By: #### U RCX #### [facility] [address] [place] [address] Dr. Anthony Bonilla LYMPH # 1.3 103/ul Normal 1.2-3.8 [facility] Comment on above: Performed By: #### U RCX #### [facility] [address] [address] [address] Anthony Bonilla Lymphocytes/100 WBC (Bld) 14.8 % Critically low 20.5-60.0 [facility] Comment on above: Performed By: #### U RCX #### [facility] [address] [place] [address] Dr. Anthony Bonilla MANUAL DIFF REQ NO Normal [facility] Comment on above: Performed By: #### U RCX #### [facility] [address] [place] [address] Dr. Anthony Bonilla MCH (RBC) [Entitic mass] 29.0 pg Normal 26.7-34.0 [facility] Comment on above: Performed By: #### U RCX #### [facility] [address] [place] [address] Dr. Anthony Bonilla MCHC (RBC) [Mass/Vol] 33.1 g/dL Normal 29.9-35.2 [facility] Comment on above: Performed By: #### U RCX #### [facility] [address] [place] [address] Dr. Anthony Bonilla MCV (RBC) [Entitic vol] 87.6 fL Normal 81.0-99.0 [facility] Comment on above: Performed By: #### U RCX #### [facility] [address] [place] [address] Dr. Anthony Bonilla MONO # 0.8 103/ul Normal 0.3-0.8 [facility] Comment on above: Performed By: #### U RCX #### [facility] [address] [address] [address] Anthony Bonilla Monocytes/100 WBC (Bld) 9.6 % Normal 1.7-12.0 [facility] Comment on above: Performed By: #### U RCX #### [facility] [address] [address] [address] Anthony Bonilla NEUT # 6.3 103/ul Normal 1.4-6.5 [facility] Comment on above: Performed By: #### U RCX #### [facility] [address] [address] [address] Anthony Bonilla Neutrophils/100 WBC (Bld) 74.5 % Normal 43.0-75.0 [facility] Comment on above: Performed By: #### U RCX #### [facility] [address] [address] [address] Anthony Bonilla Platelet mean volume (Bld) [Entitic vol] 9.8 fL Normal 9.5-13.5 [facility] Comment on above: Performed By: #### U RCX #### [facility] [address] [address] [address] Anthony Bonilla PLT 318 103/ul Normal 150-450 [facility] Comment on above: Performed By: #### U RCX #### [facility] [address] [address] [address] Anthony Bonilla RBC 3.79 106/ul Critically low 4.20-5.40 [facility] Comment on above: Performed By: #### U RCX #### [facility] [address] [address] [address] Anthony Bonilla WBC 8.5 103/ul Normal 4.0-11.0 [facility] Comment on above: Performed By: #### U RCX #### [facility] [address] [address] [address] Anthony Bonilla PROF 14(COMP METB)on 023 Albumin [Mass/Vol] 3.6 g/dL Normal 3.4-5.0 [facility] Comment on above: Performed By: #### U RCX #### [facility] [address] [place] [address] Dr. Anthony Bonilla Albumin/Globulin [Mass ratio] 1.2 {ratio} Normal [facility] Comment on above: Performed By: #### U RCX #### [facility] [address] [address] [address] Anthony Bonilla ALP [Catalytic activity/Vol] 27 U/L Critically low 46-116 [facility] Comment on above: Performed By: #### U RCX #### [facility] [address] [address] [address] Anthony Bonilla ALT [Catalytic activity/Vol] 21 U/L Normal 14-59 [facility] Comment on above: Performed By: #### U RCX #### [facility] [address] [address] [address] Anthony Bonilla Anion gap [Moles/Vol] 13.5 mmol/L Normal [facility] Comment on above: Performed By: #### U RCX #### [facility] [address] [address] [address] Anthony Bonilla AST [Catalytic activity/Vol] 19 U/L Normal 15-37 [facility] Comment on above: Performed By: #### U RCX #### [facility] [address] [address] [address] Anthony Bonilla Bilirubin [Mass/Vol] 0.6 mg/dL Normal 0.2-1.0 [facility] Comment on above: Performed By: #### U RCX #### [facility] [address] [address] [address] Anthony Bonilla Calcium [Mass/Vol] 9.2 mg/dL Normal 8.5-10.1 [facility] Comment on above: Performed By: #### U RCX #### [facility] [address] [address] [address] Anthony Bonilla Chloride [Moles/Vol] 104 mmol/L Normal 98-107 [facility] Comment on above: Performed By: #### U RCX #### [facility] [address] [address] [address] Anthony Bonilla CO2 [Moles/Vol] 28.9 mmol/L Normal 21.0-32.0 [facility] Comment on above: Performed By: #### U RCX #### [facility] [address] [address] [address] Anthony Bonilla Creatinine [Mass/Vol] 1.21 mg/dL Critically high 0.55-1.02 [facility] Comment on above: Performed By: #### U RCX #### [facility] [address] [address] [address] Anthony Bonilla EGFR-AF VENEZUELAN 51 mL/min/1.73m2 Critically low >=60 [facility] Comment on above: Performed By: #### U RCX #### [facility] [address] [address] [address] Anthony Bonilla EGFR-NON AF VENEZUELAN 42 mL/min/1.73m2 Critically low >=60 [facility] Comment on above: Performed By: #### U RCX #### [facility] [address] [address] [address] Anthony Bonilla Globulin (S) [Mass/Vol] 3.1 g/dL Normal [facility] Comment on above: Performed By: #### U RCX #### [facility] [address] [address] [address] Anthony Bonilla Glucose [Mass/Vol] 107 mg/dL Critically high 74-106 [facility] Comment on above: Performed By: #### U RCX #### [facility] [address] [address] [address] Anthony Bonilla Potassium [Moles/Vol] 3.4 mmol/L Critically low 3.5-5.1 [facility] Comment on above: Performed By: #### U RCX #### [facility] [address] [address] [address] Anthony Bonilla Protein [Mass/Vol] 6.7 g/dL Normal 6.4-8.2 [facility] Comment on above: Performed By: #### U RCX #### [facility] [address] [address] [address] Anthony Bonilla Sodium [Moles/Vol] 143 mmol/L Normal 136-145 [facility] Comment on above: Performed By: #### U RCX #### [facility] [address] [place], [place] [address] Dr. Anthony Bonilla Urea nitrogen [Mass/Vol] 22.0 mg/dL Critically high 7.0-18.0 [facility] Comment on above: Performed By: #### U RCX #### [facility] [address] [place], [place] [address] Dr. Anthony Bonilla Urea nitrogen/Creatinine [Mass ratio] 18.2 mg/mg Normal [facility] Comment on above: Performed By: #### U RCX #### [facility] [address] [place], [place] [address] Dr. Anthony Bonilla Automated erythrocytes count in urine sediment (number/area)Ordered By: Gypsy Mcmahon on 02-16-2022 RBC Auto (Urine sed) [#/Area] 0-1 [HPF] 0-4 [facility] Automated leukocytes count i n urine sediment (number/area)Ordered By: Gypsy Mcmahon on 02-16-2022 WBC Auto (Urine sed) [#/Area] 20-49 [HPF] 0-4 [facility] Bilirubin Test strip Ql (U)O rdered By: Gypsy Mcmahon on 02-16-2022 Bilirubin Ql (U) Negative Negative [facility] Color Auto (U)Ordered By: Nicole Mcmahon on 02-16-2022 Color (U) Yellow Yellow [facility] Ketones Auto test strip (U) [Mass/Vol]Ordered By: Gypsy Mcmahon on 02-16-2022 Ketones (U) [Mass/Vol] Trace Negative [facility] - UrinalysisOrder ed By: Gypsy Mcmahon on 02-16-2022 Hyaline casts LM Ql (Urine sed) 9-19 [LPF] 0-8 [facility] Nitrite Test strip Ql (U)Ord ered By: Gypsy Mcmahon on 02-16-2022 Nitrite Ql (U) Positive Negative [facility] Protein Auto test strip (U) [Mass/Vol]Ordered By: Gypsy Mcmahon on 02-16-2022 Protein (U) [Mass/Vol] Negative Negative [facility] Specific gravity Auto test s trip (U) [Rel density]Ordered By: Gypsy Mcmahon on 02-16-2022 Specific gravity (U) [Rel density] 1.018 1.001-1.03 0 [facility] Squamous epithelial cells de tection in urine sediment by light microscopyOrdered By: Gypsy Mcmahon on 02-16-2022 Epithelial cells.squamous LM Ql (Urine sed) 5-9 [HPF] 0-2 [facility] Urine Cultureon 02-16-2022 Urine Culture >100,000 [employer] Other Urine Culture <16 Susceptible [employer] Other Urine Culture <8/4 Susceptible [employer] Other Urine Culture <4 Susceptible [employer] Other Urine Culture <2 Susceptible [employer] Other Urine Culture <1 Susceptible [employer] Other Urine Culture <0.25 Susceptible [employer] Other Urine Culture <0.5 Susceptible [employer] Other Urine Culture <32 Susceptible [employer] Other Urine Culture <0.5/9.5 Susceptible [employer] Other Urine bacteria detection by automated methodOrdered By: Gypsy Mcmahon on 02-16-2022 Bacteria Auto Ql (U) 2+ None Seen [facility] Urine clarity by refractomet ry automatedOrdered By: Gypsy Mcmahon on 02-16-2022 Clarity Refractometry automated (U) Cloudy Clear [facility] Urine culture routineOrdered By: Gypsy Mcmahon on 02-16-2022 Bacteria identified Cx Nom (U) Klebsiella variicola [facility] Urine glucose measurement by automated test strip (mass/volume)Ordered By: Gypsy Mcmahon on 02-16-2022 Glucose Auto test strip (U) [Mass/Vol] Normal mg/dL Normal [facility] Urine hemoglobin detection b y automated test stripOrdered By: Gypsy Mcmahon on 02-16-2022 Hemoglobin Auto test strip Ql (U) Negative Negative [facility] Urine leukocyte esterase det ection by automated test stripOrdered By: Gypsy Mcmahon on 02-16-2022 Leukocyte esterase Auto test strip Ql (U) 2+ Negative [facility] Urobilinogen Auto test strip (U) [Mass/Vol]Ordered By: Gypsy Mcmahon on 02-16-2022 Urobilinogen (U) [Mass/Vol] Normal mg/dL Normal [facility] pH Auto test strip (U)Ordere d By: Gypsy Mcmahon on 02-16-2022 pH (U) 5.5 [pH] 5.0-9.0 [facility] CBC AUTO DIFFon 01-15-2022 BASO # 0.0 103/ul Normal 0.0-0.1 [facility] Comment on above: Performed By: #### C BC #### [facility] [address] [place] [address] Dr. Anthony Bonilla Basophils/100 WBC (Bld) 0.5 % Normal 0.2-2.0 [facility] Comment on above: Performed By: #### C BC #### [facility] [address] [address] [address] Anthony Bonilla EO # 0.1 103/ul Normal 0.0-0.7 [facility] Comment on above: Performed By: #### C BC #### [facility] [address] [place] [address] Dr. Anthony Bonilla Eosinophils/100 WBC (Bld) 0.9 % Normal 0.9-7.0 [facility] Comment on above: Performed By: #### C BC #### [facility] [address] [place] [address] Dr. Anthony Bonilla Erythrocyte distribution width (RBC) [Ratio] 14.8 % Normal 11.0-15.0 [facility] Comment on above: Performed By: #### C BC #### [facility] [address] [place] [address] Dr. Anthony Bonilla Hematocrit (Bld) [Volume fraction] 30.3 % Critically low 36.0-48.0 [facility] Comment on above: Performed By: #### C BC #### [facility] [address] [address] [address] Anthony Bonilla Hemoglobin (Bld) [Mass/Vol] 9.8 g/dL Critically low 12.0-16.0 [facility] Comment on above: Performed By: #### C BC #### [facility] [address] [place] [address] Dr. Anthony Bonilla IG # 0.03 10e3/ul Normal 0.00-0.03 [facility] Comment on above: Performed By: #### C BC #### [facility] [address] [place] [address] Dr. Anthony Bonilla IG % 0.3 % Normal 0.0-0.5 [facility] Comment on above: Performed By: #### C BC #### [facility] [address] [place] [address] Dr. Anthony Bonilla LYMPH # 1.4 103/ul Normal 1.2-3.8 [facility] Comment on above: Performed By: #### C BC #### [facility] [address] [place] [address] Dr. Anthony Bonilla Lymphocytes/100 WBC (Bld) 15.7 % Critically low 20.5-60.0 [facility] Comment on above: Performed By: #### C BC #### [facility] [address] [place] [address] Dr. Anthony Bonilla MANUAL DIFF REQ NO Normal [facility] Comment on above: Performed By: #### C BC #### [facility] [address] [place] [address] Dr. Anthony Bonilla MCH (RBC) [Entitic mass] 30.0 pg Normal 26.7-34.0 [facility] Comment on above: Performed By: #### C BC #### [facility] [address] [place] [address] Dr. Anthony Bonilla MCHC (RBC) [Mass/Vol] 32.3 g/dL Normal 29.9-35.2 [facility] Comment on above: Performed By: #### C BC #### [facility] [address] [id number] Anthony Bonilla MCV (RBC) [Entitic vol] 92.7 fL Normal 81.0-99.0 [facility] Comment on above: Performed By: #### C BC #### [facility] [address] [address] [address] Anthony Bonilla MONO # 1.1 103/ul Critically high 0.3-0.8 [facility] Comment on above: Performed By: #### C BC #### [facility] [address] [address] [address] Anthony Bonilla Monocytes/100 WBC (Bld) 12.0 % Normal 1.7-12.0 [facility] Comment on above: Performed By: #### C BC #### [facility] [address] [address] [address] Anthony Bonilla NEUT # 6.2 103/ul Normal 1.4-6.5 [facility] Comment on above: Performed By: #### C BC #### [facility] [address] [address] [address] Anthony Bonilla Neutrophils/100 WBC (Bld) 70.6 % Normal 43.0-75.0 [facility] Comment on above: Performed By: #### C BC #### [facility] [address] [address] [address] Anthony Bonilla Platelet mean volume (Bld) [Entitic vol] 9.8 fL Normal 9.5-13.5 [facility] Comment on above: Performed By: #### C BC #### [facility] [address] [place] [address] Dr. Anthony Bonilla PLT 305 103/ul Normal 150-450 [facility] Comment on above: Performed By: #### C BC #### [facility] [address] [address] [address] Anthony Bonilla RBC 3.27 106/ul Critically low 4.20-5.40 [facility] Comment on above: Performed By: #### C BC #### [facility] [address] [address] [address] Anthony Bonilla WBC 8.7 103/ul Normal 4.0-11.0 [facility] Comment on above: Performed By: #### C BC #### [facility] [address] [address] [address] Anthony Bonilla PROF CHEM 8 (BAS METB)on Anion gap [Moles/Vol] 12.2 mmol/L Normal [facility] Comment on above: Performed By: #### U RCX #### [facility] [address] [address] [address] Anthony Bonilla Calcium [Mass/Vol] 9.1 mg/dL Normal 8.5-10.1 [facility] Comment on above: Performed By: #### U RCX #### [facility] [address] [place] [address] Dr. Anthony Bonilla Chloride [Moles/Vol] 104 mmol/L Normal 98-107 [facility] Comment on above: Performed By: #### U RCX #### [facility] [address] [place] [address] Dr. Anthony Bonilla CO2 [Moles/Vol] 24.4 mmol/L Normal 21.0-32.0 [facility] Comment on above: Performed By: #### U RCX #### [facility] [address] [place] [address] Dr. Anthony Bonilla Creatinine [Mass/Vol] 1.20 mg/dL Critically high 0.55-1.02 [facility] Comment on above: Performed By: #### U RCX #### [facility] [address] [place] [address] Dr. Anthony Bonilla EGFR-AF VENEZUELAN 52 mL/min/1.73m2 Critically low >=60 [facility] Comment on above: Performed By: #### U RCX #### [facility] [address] [place] [address] Dr. Anthony Bonilla EGFR-NON AF VENEZUELAN 43 mL/min/1.73m2 Critically low >=60 [facility] Comment on above: Performed By: #### U RCX #### [facility] [address] [address] [address] Anthony Bonilla Glucose [Mass/Vol] 81 mg/dL Normal 74-106 [facility] Comment on above: Performed By: #### U RCX #### [facility] [address] [address] [address] Anthony Bonilla Potassium [Moles/Vol] 3.6 mmol/L Normal 3.5-5.1 [facility] Comment on above: Performed By: #### U RCX #### [facility] [address] [address] [address] Anthony Bonilla Sodium [Moles/Vol] 137 mmol/L Normal 136-145 [facility] Comment on above: Performed By: #### U RCX #### [facility] [address] [address] [address] Anthony Bonilla Urea nitrogen [Mass/Vol] 21.0 mg/dL Critically high 7.0-18.0 [facility] Comment on above: Performed By: #### U RCX #### [facility] [address] [address] [address] Anthony Bonilla Urea nitrogen/Creatinine [Mass ratio] 17.5 mg/mg Normal [facility] Comment on above: Performed By: #### U RCX #### [facility] [address] [place] [address] Dr. Anthony Bonilla CULTURE URINEon 12-29-2021 CULTURE [...] Trimethoprim/Sulfamethoxazol e <=20 S F Normal [facility] Comment on above: Performed By: #### U RCX #### [facility] [address] [place] [address] Dr. Anthony Bonilla ER URINE PROFILEon 2 Bilirubin Ql (U) SMALL Abnormal NEGATIVE [facility] Comment on above: Performed By: #### C BC #### [facility] [address] [place] [address] Dr. Anthony Bonilla Clarity (U) SL CLOUDY Abnormal CLEAR [facility] Comment on above: Performed By: #### C BC #### [facility] [address] [place] [address] Dr. Anthony Bonilla Color (U) YELLOW Normal YELLOW [facility] Comment on above: Performed By: #### C BC #### [facility] [address] [place] [address] Dr. Anthony BANGURA A micrscopic examina tion will be performed if indicated. Normal [facility] Comment on above: Performed By: #### C BC #### [facility] [address] [place] [address] Dr. Anthony Bonilla Glucose Ql (U) Negative Normal NEGATIVE [facility] Comment on above: Performed By: #### C BC #### [facility] [address] [place] [address] Dr. Anthony Bonilla Hemoglobin Ql (U) Negative Normal NEGATIVE [facility] Comment on above: Performed By: #### C BC #### [facility] [address] [place] [address] Dr. Anthony Bonilla Ketones Ql (U) TRACE Abnormal NEGATIVE [facility] Comment on above: Performed By: #### C BC #### [facility] [address] [place] [address] Dr. Anthony Bonilla LEUKOCYTES MODERATE Abnormal NEGATIVE [facility] Comment on above: Performed By: #### C BC #### [facility] [address] [place] [address] Dr. Anthony Bonilla Nitrite Ql (U) Positive Abnormal NEGATIVE [facility] Comment on above: Performed By: #### C BC #### [facility] [address] [place] [address] Dr. Anthony Bonilla pH (U) 7.5 [pH] Normal 5-9 [facility] Comment on above: Performed By: #### C BC #### [facility] [address] [place] [address] Dr. Anthony Bonilla Protein (U) [Mass/Vol] 30 mg/dL Abnormal NEGATIVE/ TRACE [facility] Comment on above: Performed By: #### C BC #### [facility] [address] [place] [address] Dr. Anthony Bonilla SPEC GRAVITY 1.020 Normal 1.005-<=1. 025 [facility] Comment on above: Performed By: #### C BC #### [facility] [address] [place] [address] Dr. Anthony Bonilla UR MICRO IND INDICATED Normal [facility] Comment on above: Performed By: #### C BC #### [facility] [address] [place] [address] Dr. Anthony Bonilla Urobilinogen Qn (U) 0.2 {Gen'U}/dL Normal 0.2 - 1. 0 [facility] Comment on above: Performed By: #### C BC #### [facility] [address] [place] [address] Dr. Anthony Bonilla URINE MICROSCOPIC ONLYon BACTERIA TRACE Abnormal NONE SEEN The [facility] Comment on above: Performed By: #### C BC #### [facility] [address] [place] [address] Dr. Anthony Bonilla Bacteria identified Cx Nom (U) INDICATED Normal [facility] Comment on above: Performed By: #### C BC #### [facility] [address] [place] [address] Dr. Anthony Bonilla CAST NONE SEEN Normal NONE SEEN [facility] Comment on above: Performed By: #### C BC #### [facility] [address] [place] [address] Dr. Anthony Bonilla Crystals LM Nom (Urine sed) NONE SEEN Normal NONE SEEN The [facility] Comment on above: Performed By: #### C BC #### [facility] [address] [place] [address] Dr. Anthony Bonilla Epithelial cells LM Ql (Urine sed) FEW Abnormal NONE SEEN /RARE [facility] Comment on above: Performed By: #### C BC #### [facility] [address] [place] [address] Dr. Anthony Bonilla MUCOUS NONE SEEN Normal NONE SEEN The [facility] Comment on above: Performed By: #### C BC #### [facility] [address] [place] [address] Dr. Anthony Bonilla RBC 0-2 Normal 0-2 [facility] Comment on above: Performed By: #### C BC #### [facility] [address] [place] [address] Dr. Anthony Bonilla WBC 5-10 Abnormal NONE SEEN [facility] Comment on above: Performed By: #### C BC #### [facility] [address] [place] [address] Dr. Anthony Bonilla PRBC LEUKOREDUCEDon 11-20-19 PRBC LEUKOREDUCED Cross Match Result Compatible Unit Blood Type A Pos Unit Number [id number] Status Information Transfused Product ID Red Blood Cells Product Code [id number] Normal [facility] Comment on above: Performed By: #### P RBC #### [facility] [address] [place] [address] Dr. Anthony Bonilla CBC AUTO DIFFon 11-10-2021 BASO # 0.0 103/ul Normal 0.0-0.1 [facility] Comment on above: Performed By: #### C BC #### [facility] [address] [address] [address] Anthony Bonilla Basophils/100 WBC (Bld) 0.7 % Normal 0.2-2.0 [facility] Comment on above: Performed By: #### C BC #### [facility] [address] [address] [address] Anthony Bonilla EO # 0.2 103/ul Normal 0.0-0.7 [facility] Comment on above: Performed By: #### C BC #### [facility] [address] [address] [address] Anthony Bonilla Eosinophils/100 WBC (Bld) 2.7 % Normal 0.9-7.0 [facility] Comment on above: Performed By: #### C BC #### [facility] [address] [place] [address] Dr. Anthony Bonilla Erythrocyte distribution width (RBC) [Ratio] 16.3 % Critically high 11.0-15.0 [facility] Comment on above: Performed By: #### C BC #### [facility] [address] [place] [address] Dr. Anthony Bonilla Hematocrit (Bld) [Volume fraction] 29.0 % Critically low 36.0-48.0 [facility] Comment on above: Performed By: #### C BC #### [facility] [address] [place] [address] Dr. Anthony Bonilla Hemoglobin (Bld) [Mass/Vol] 9.4 g/dL Critically low 12.0-16.0 [facility] Comment on above: Performed By: #### C BC #### [facility] [address] [place] [address] Dr. Anthony Bonilla IG # 0.04 10e3/ul Critically high 0.00-0.03 [facility] Comment on above: Performed By: #### C BC #### [facility] [address] [address] [address] Anthony Bonilla IG % 0.7 % Critically high 0.0-0.5 [facility] Comment on above: Performed By: #### C BC #### [facility] [address] [address] [address] Anthony Bonilla LYMPH # 1.2 103/ul Normal 1.2-3.8 [facility] Comment on above: Performed By: #### C BC #### [facility] [address] [address] [address] Anthony Bonilla Lymphocytes/100 WBC (Bld) 21.5 % Normal 20.5-60.0 [facility] Comment on above: Performed By: #### C BC #### [facility] [address] [place] [address] Dr. Anthony Bonilla MANUAL DIFF REQ NO Normal [facility] Comment on above: Performed By: #### C BC #### [facility] [address] [place] [address] Dr. Anthony Bonilla MCH (RBC) [Entitic mass] 32.3 pg Normal 26.7-34.0 [facility] Comment on above: Performed By: #### C BC #### [facility] [address] [place] [address] Dr. Anthony Bonilla MCHC (RBC) [Mass/Vol] 32.4 g/dL Normal 29.9-35.2 [facility] Comment on above: Performed By: #### C BC #### [facility] [address] [place] [address] Dr. Anthony Bonilla MCV (RBC) [Entitic vol] 99.7 fL Critically high 81.0-99.0 [facility] Comment on above: Performed By: #### C BC #### [facility] [address] [place] [address] Dr. Anthony Bonilla MONO # 0.7 103/ul Normal 0.3-0.8 [facility] Comment on above: Performed By: #### C BC #### [facility] [address] [place] [address] Dr. Anthony Bonilla Monocytes/100 WBC (Bld) 12.6 % Critically high 1.7-12.0 [facility] Comment on above: Performed By: #### C BC #### [facility] [address] [address] [address] Anthony Bonilla NEUT # 3.4 103/ul Normal 1.4-6.5 [facility] Comment on above: Performed By: #### C BC #### [facility] [address] [address] [address] Anthony Bonilla Neutrophils/100 WBC (Bld) 61.8 % Normal 43.0-75.0 [facility] Comment on above: Performed By: #### C BC #### [facility] [address] [place] [address] Dr. Anthony Bonilla Platelet mean volume (Bld) [Entitic vol] 9.0 fL Critically low 9.5-13.5 [facility] Comment on above: Performed By: #### C BC #### [facility] [address] [address] [address] Anthony Bonilla PLT 429 103/ul Normal 150-450 [facility] Comment on above: Performed By: #### C BC #### [facility] [address] [place] [address] Dr. Anthony Bonilla RBC 2.91 106/ul Critically low 4.20-5.40 [facility] Comment on above: Performed By: #### C BC #### [facility] [address] [place] [address] Dr. Anthony Bonilla WBC 5.5 103/ul Normal 4.0-11.0 [facility] Comment on above: Performed By: #### C BC #### [facility] [address] [place] [address] Dr. Anthony Bonilla PROF CHEM 8 (BAS METB)on Anion gap [Moles/Vol] 11.0 mmol/L Normal [facility] Comment on above: Performed By: #### B MP #### [facility] [address] [place] [address] Dr. Anthony Bonilla Calcium [Mass/Vol] 9.2 mg/dL Normal 8.5-10.1 [facility] Comment on above: Performed By: #### B MP #### [facility] [address] [address] [address] Anthony Bonilla Chloride [Moles/Vol] 107 mmol/L Normal 98-107 [facility] Comment on above: Performed By: #### B MP #### [facility] [address] [address] [address] Anthony Bonilla CO2 [Moles/Vol] 27.4 mmol/L Normal 21.0-32.0 [facility] Comment on above: Performed By: #### B MP #### [facility] [address] [address] [address] Anthony Bonilla Creatinine [Mass/Vol] 1.12 mg/dL Critically high 0.55-1.02 [facility] Comment on above: Performed By: #### B MP #### [facility] [address] [address] [address] Anthony Bonilla EGFR-AF VENEZUELAN 56 mL/min/1.73m2 Critically low >=60 [facility] Comment on above: Performed By: #### B MP #### [facility] [address] [address] [address] Anthony Bonilla EGFR-NON AF VENEZUELAN 46 mL/min/1.73m2 Critically low >=60 [facility] Comment on above: Performed By: #### B MP #### [facility] [address] [address] [address] Anthony Bonilla Glucose [Mass/Vol] 89 mg/dL Normal 74-106 [facility] Comment on above: Performed By: #### B MP #### [facility] [address] [address] [address] Anthony Bonilla Potassium [Moles/Vol] 4.4 mmol/L Normal 3.5-5.1 [facility] Comment on above: Performed By: #### B MP #### [facility] [address] [address] [address] Anthony Bonilla Sodium [Moles/Vol] 141 mmol/L Normal 136-145 [facility] Comment on above: Performed By: #### B MP #### [facility] [address] [address] [address] Anthony Bonilla Urea nitrogen [Mass/Vol] 18.0 mg/dL Normal 7.0-18.0 [facility] Comment on above: Performed By: #### B MP #### [facility] [address] [place] [address] Dr. Anthony Bonilla Urea nitrogen/Creatinine [Mass ratio] 16.1 mg/mg Normal [facility] Comment on above: Performed By: #### B MP #### [facility] [address] [place] [address] Dr. Anthony Bonilla CBC AUTO DIFFon 11-04-2021 BASO # 0.0 103/ul Normal 0.0-0.1 [facility] Comment on above: Performed By: #### C BC #### [facility] [address] [place] [address] Dr. Anthony Bonilla Basophils/100 WBC (Bld) 0.2 % Normal 0.2-2.0 [facility] Comment on above: Performed By: #### C BC #### [facility] [address] [place] [address] Dr. Anthony Bonilla EO # 0.1 103/ul Normal 0.0-0.7 [facility] Comment on above: Performed By: #### C BC #### [facility] [address] [place] [address] Dr. Anthony Bonilla Eosinophils/100 WBC (Bld) 0.8 % Critically low 0.9-7.0 [facility] Comment on above: Performed By: #### C BC #### [facility] [address] [place] [address] Dr. Anthony Bonilla Erythrocyte distribution width (RBC) [Ratio] 16.7 % Critically high 11.0-15.0 [facility] Comment on above: Performed By: #### C BC #### [facility] [address] [place] [address] Dr. Anthony Bonilla Hematocrit (Bld) [Volume fraction] 25.6 % Critically low 36.0-48.0 [facility] Comment on above: Performed By: #### C BC #### [facility] [address] [place], [place] [id number] Dr. Anthony Bonilla Hemoglobin (Bld) [Mass/Vol] 8.5 g/dL Critically low 12.0-16.0 [facility] Comment on above: Performed By: #### C BC #### [facility] [address] [place] [address] Dr. Anthony Bonilla IG # 0.05 10e3/ul Critically high 0.00-0.03 [facility] Comment on above: Performed By: #### C BC #### [facility] [address] [place] [address] Dr. Anthony Bonilla IG % 0.5 % Normal 0.0-0.5 [facility] Comment on above: Performed By: #### C BC #### [facility] [address] [place] [address] Dr. Anthony Bonilla LYMPH # 0.6 103/ul Critically low 1.2-3.8 [facility] Comment on above: Performed By: #### C BC #### [facility] [address] [place] [address] Dr. Anthony Bonilla Lymphocytes/100 WBC (Bld) 6.2 % Critically low 20.5-60.0 [facility] Comment on above: Performed By: #### C BC #### [facility] [address] [place] [address] Dr. Anthony Bonilla MANUAL DIFF REQ NO Normal [facility] Comment on above: Performed By: #### C BC #### [facility] [address] [place] [address] Dr. Anthony Bonilla MCH (RBC) [Entitic mass] 31.6 pg Normal 26.7-34.0 [facility] Comment on above: Performed By: #### C BC #### [facility] [address] [place] [address] Dr. Anthony Bonilla MCHC (RBC) [Mass/Vol] 33.2 g/dL Normal 29.9-35.2 [facility] Comment on above: Performed By: #### C BC #### [facility] [address] [place] [address] Dr. Anthony Bonilla MCV (RBC) [Entitic vol] 95.2 fL Normal 81.0-99.0 [facility] Comment on above: Performed By: #### C BC #### [facility] [address] [place] [address] Dr. Anthony Bonilla MONO # 0.6 103/ul Normal 0.3-0.8 [facility] Comment on above: Performed By: #### C BC #### [facility] [address] [place] [address] Dr. Anthony Bonilla Monocytes/100 WBC (Bld) 6.1 % Normal 1.7-12.0 [facility] Comment on above: Performed By: #### C BC #### [facility] [address] [place] [address] Dr. Anthony Bonilla NEUT # 8.8 103/ul Critically high 1.4-6.5 [facility] Comment on above: Performed By: #### C BC #### [facility] [address] [place] [address] Dr. Anthony Bonilla Neutrophils/100 WBC (Bld) 86.2 % Critically high 43.0-75.0 [facility] Comment on above: Performed By: #### C BC #### [facility] [address] [place] [address] Dr. Anthony Bonilla Platelet mean volume (Bld) [Entitic vol] 9.8 fL Normal 9.5-13.5 [facility] Comment on above: Performed By: #### C BC #### [facility] [address] [place] [address] Dr. Anthony Bonilla PLT 156 103/ul Normal 150-450 [facility] Comment on above: Performed By: #### C BC #### [facility] [address] [place] [address] Dr. Anthony Bonilla RBC 2.69 106/ul Critically low 4.20-5.40 [facility] Comment on above: Performed By: #### C BC #### [facility] [address] [place] [address] Dr. Anthony Bonilla WBC 10.3 103/ul Normal 4.0-11.0 [facility] Comment on above: Performed By: #### C BC #### [facility] [address] [place] [address] Dr. Anthony Bonilla CULTURE URINEon 11-04-2021 CULTURE [...] F Trimethoprim/Sulfamethoxazol e <=20 S F Normal [facility] Comment on above: Performed By: #### U RCX #### [facility] [address] [place] [address] Dr. Anthony Bonilla PROF CHEM 8 (BAS METB)on Anion gap [Moles/Vol] 12.9 mmol/L Normal [facility] Comment on above: Performed By: #### U RCX #### [facility] [address] [place] [address] Dr. Anthony Bonilla Calcium [Mass/Vol] 8.6 mg/dL Normal 8.5-10.1 [facility] Comment on above: Performed By: #### U RCX #### [facility] [address] [place] [address] Dr. Anthony Bonilla Chloride [Moles/Vol] 108 mmol/L Critically high 98-107 [facility] Comment on above: Performed By: #### U RCX #### [facility] [address] [place] [address] Dr. Anthony Bonilla CO2 [Moles/Vol] 23.1 mmol/L Normal 21.0-32.0 [facility] Comment on above: Performed By: #### U RCX #### [facility] [address] [address] [address] Anthony Bonilla Creatinine [Mass/Vol] 0.98 mg/dL Normal 0.55-1.02 [facility] Comment on above: Performed By: #### U RCX #### [facility] [address] [address] [address] Anthony Bonilla EGFR-AF VENEZUELAN >60 Normal >=60 [facility] Comment on above: Performed By: #### U RCX #### [facility] [address] [address] [address] Anthony Bonilla EGFR-NON AF VENEZUELAN 54 mL/min/1.73m2 Critically low >=60 [facility] Comment on above: Performed By: #### U RCX #### [facility] [address] [address] [address] Anthony Bonilla Glucose [Mass/Vol] 86 mg/dL Normal 74-106 [facility] Comment on above: Performed By: #### U RCX #### [facility] [address] [address] [address] Anthony Bonilla Potassium [Moles/Vol] 4.0 mmol/L Normal 3.5-5.1 [facility] Comment on above: Performed By: #### U RCX #### [facility] [address] [address] [address] Anthony Bonilla Sodium [Moles/Vol] 140 mmol/L Normal 136-145 [facility] Comment on above: Performed By: #### U RCX #### [facility] [address] [address] [address] Anthony Bonilla Urea nitrogen [Mass/Vol] 31.0 mg/dL Critically high 7.0-18.0 [facility] Comment on above: Performed By: #### U RCX #### [facility] [address] [address] [address] Anthony Bonilla Urea nitrogen/Creatinine [Mass ratio] 31.6 mg/mg Normal [facility] Comment on above: Performed By: #### U RCX #### [facility] [address] [address] [address] Anthony Bonilla CBC AUTO DIFFon 11-03-2021 BASO # 0.0 103/ul Normal 0.0-0.1 [facility] Comment on above: Performed By: #### C BC #### [facility] [address] [place] [address] Dr. Anthony Bonilla Basophils/100 WBC (Bld) 0.3 % Normal 0.2-2.0 [facility] Comment on above: Performed By: #### C BC #### [facility] [address] [place] [address] Dr. Anthony Bonilla EO # 0.1 103/ul Normal 0.0-0.7 [facility] Comment on above: Performed By: #### C BC #### [facility] [address] [place] [address] Dr. Anthony Bonilla Eosinophils/100 WBC (Bld) 0.6 % Critically low 0.9-7.0 [facility] Comment on above: Performed By: #### C BC #### [facility] [address] [place] [address] Dr. Anthony Bonilla Erythrocyte distribution width (RBC) [Ratio] 14.0 % Normal 11.0-15.0 [facility] Comment on above: Performed By: #### C BC #### [facility] [address] [place] [address] Dr. Anthony Bonilla Hematocrit (Bld) [Volume fraction] 23.1 % Critically low 36.0-48.0 [facility] Comment on above: Result Comment: Flui ds given Performed By: #### C BC #### [facility] [address] [place] [address] Dr. Anthony Bonilla Hemoglobin (Bld) [Mass/Vol] 7.6 g/dL Critically low 12.0-16.0 [facility] Comment on above: Performed By: #### C BC #### [facility] [address] [place] [address] Dr. Anthony Bonilla IG # 0.07 10e3/ul Critically high 0.00-0.03 [facility] Comment on above: Performed By: #### C BC #### [facility] [address] [place] [address] Dr. Anthony Bonilla IG % 0.6 % Critically high 0.0-0.5 [facility] Comment on above: Performed By: #### C BC #### [facility] [address] [address] [address] Anthony Bonilla LYMPH # 0.7 103/ul Critically low 1.2-3.8 [facility] Comment on above: Performed By: #### C BC #### [facility] [address] [place] [address] Dr. Anthony Bonilla Lymphocytes/100 WBC (Bld) 5.7 % Critically low 20.5-60.0 [facility] Comment on above: Performed By: #### C BC #### [facility] [address] [place] [address] Dr. Anthony Bonilla MANUAL DIFF REQ NO Normal [facility] Comment on above: Performed By: #### C BC #### [facility] [address] [place] [address] Dr. Anthony Bonilla MCH (RBC) [Entitic mass] 32.6 pg Normal 26.7-34.0 [facility] Comment on above: Performed By: #### C BC #### [facility] [address] [place] [address] Dr. Anthony Bonilla MCHC (RBC) [Mass/Vol] 32.9 g/dL Normal 29.9-35.2 [facility] Comment on above: Performed By: #### C BC #### [facility] [address] [place] [address] Dr. Anthony Bonilla MCV (RBC) [Entitic vol] 99.1 fL Critically high 81.0-99.0 [facility] Comment on above: Performed By: #### C BC #### [facility] [address] [place] [address] Dr. Anthony Bonilla MONO # 0.8 103/ul Normal 0.3-0.8 [facility] Comment on above: Performed By: #### C BC #### [facility] [address] [id number] Anthony Bonilla Monocytes/100 WBC (Bld) 6.8 % Normal 1.7-12.0 [facility] Comment on above: Performed By: #### C BC #### [facility] [address] [address] [address] Anthony Bonilla NEUT # 9.8 103/ul Critically high 1.4-6.5 [facility] Comment on above: Performed By: #### C BC #### [facility] [address] [address] [address] Anthony Bonilla Neutrophils/100 WBC (Bld) 86.0 % Critically high 43.0-75.0 [facility] Comment on above: Performed By: #### C BC #### [facility] [address] [place] [address] Dr. Anthony Bonilla Platelet mean volume (Bld) [Entitic vol] 9.5 fL Normal 9.5-13.5 [facility] Comment on above: Performed By: #### C BC #### [facility] [address] [address] [address] Anthony Bonilla PLT 160 103/ul Normal 150-450 [facility] Comment on above: Performed By: #### C BC #### [facility] [address] [place] [address] Dr. Anthony Bonilla RBC 2.33 106/ul Critically low 4.20-5.40 [facility] Comment on above: Performed By: #### C BC #### [facility] [address] [place] [address] Dr. Anthony Bonilla WBC 11.4 103/ul Critically high 4.0-11.0 [facility] Comment on above: Performed By: #### C BC #### [facility] [address] [place] [address] Dr. Anthony Bonilla HEMOGLOBIN AND HEMATOCRITon 11-03-2021 Hematocrit (Bld) [Volume fraction] 27.0 % Critically low 36.0-48.0 [facility] Comment on above: Performed By: #### U RCX #### [facility] [address] [address] [address] Anthony Bonilla Hemoglobin (Bld) [Mass/Vol] 9.1 g/dL Critically low 12.0-16.0 [facility] Comment on above: Performed By: #### U RCX #### [facility] [address] [place] [address] Dr. Anthony Bonilla OCC BLD IMMUNO SCREENon 10-10 OCCULT BLOOD Positive Abnormal NEGATIVE [facility] Comment on above: Performed By: #### C BC #### [facility] [address] [place] [address] Dr. Anthony Bonilla PROF CHEM 8 (BAS METB)on Anion gap [Moles/Vol] 10.7 mmol/L Normal [facility] Comment on above: Performed By: #### C BC #### [facility] [address] [place] [address] Dr. Anthony Bonilla Calcium [Mass/Vol] 8.6 mg/dL Normal 8.5-10.1 [facility] Comment on above: Performed By: #### C BC #### [facility] [address] [place] [address] Dr. Anthony Bonilla Chloride [Moles/Vol] 107 mmol/L Normal 98-107 [facility] Comment on above: Performed By: #### C BC #### [facility] [address] [place] [address] Dr. Anthony Bonilla CO2 [Moles/Vol] 24.4 mmol/L Normal 21.0-32.0 [facility] Comment on above: Performed By: #### C BC #### [facility] [address] [place] [address] Dr. Anthony Bonilla Creatinine [Mass/Vol] 0.98 mg/dL Normal 0.55-1.02 [facility] Comment on above: Performed By: #### C BC #### [facility] [address] [place] [address] Dr. Anthony Bonilla EGFR-AF VENEZUELAN >60 Normal >=60 [facility] Comment on above: Performed By: #### C BC #### [facility] [address] [address] [address] Anthony Bonilla EGFR-NON AF VENEZUELAN 54 mL/min/1.73m2 Critically low >=60 [facility] Comment on above: Performed By: #### C BC #### [facility] [address] [address] [address] Anthony Bonilla Glucose [Mass/Vol] 98 mg/dL Normal 74-106 [facility] Comment on above: Performed By: #### C BC #### [facility] [address] [address] [address] Anthony Bonilla Potassium [Moles/Vol] 4.1 mmol/L Normal 3.5-5.1 [facility] Comment on above: Performed By: #### C BC #### [facility] [address] [address] [address] Anthony Bonilla Sodium [Moles/Vol] 138 mmol/L Normal 136-145 [facility] Comment on above: Performed By: #### C BC #### [facility] [address] [address] [address] Anthony Bonilla Urea nitrogen [Mass/Vol] 43.0 mg/dL Critically high 7.0-18.0 [facility] Comment on above: Performed By: #### C BC #### [facility] [address] [address] [address] Anthony Bonilla Urea nitrogen/Creatinine [Mass ratio] 43.9 mg/mg Normal [facility] Comment on above: Performed By: #### C BC #### [facility] [address] [address] [address] Anthony Bonilla TYPE AND SCREENon 11-03-2021 TYPE AND SCREEN Negative Normal [facility] Comment on above: Performed By: #### C BC #### [facility] [address] [address] [address] Anthony Bonilla CBC AUTO DIFFon 11-02-2021 BASO # 0.0 103/ul Normal 0.0-0.1 [facility] Comment on above: Performed By: #### U RCX #### [facility] [address] [address] [address] Anthony Bonilla Basophils/100 WBC (Bld) 0.3 % Normal 0.2-2.0 [facility] Comment on above: Performed By: #### U RCX #### [facility] [address] [place] [address] Dr. Anthony Bonilla EO # 0.0 103/ul Normal 0.0-0.7 [facility] Comment on above: Performed By: #### U RCX #### [facility] [address] [place] [address] Dr. Anthony Bonilla Eosinophils/100 WBC (Bld) 0.1 % Critically low 0.9-7.0 [facility] Comment on above: Performed By: #### U RCX #### [facility] [address] [place] [address] Dr. Anthony Bonilla Erythrocyte distribution width (RBC) [Ratio] 13.9 % Normal 11.0-15.0 [facility] Comment on above: Performed By: #### U RCX #### [facility] [address] [place] [address] Dr. Anthony Bonilla Hematocrit (Bld) [Volume fraction] 31.8 % Critically low 36.0-48.0 [facility] Comment on above: Performed By: #### U RCX #### [facility] [address] [place] [address] Dr. Anthony Bonilla Hemoglobin (Bld) [Mass/Vol] 10.5 g/dL Critically low 12.0-16.0 [facility] Comment on above: Performed By: #### U RCX #### [facility] [address] [place] [address] Dr. Anthony Bonilla IG # 0.07 10e3/ul Critically high 0.00-0.03 [facility] Comment on above: Performed By: #### U RCX #### [facility] [address] [place] [address] Dr. Anthony Bonilla IG % 0.5 % Normal 0.0-0.5 [facility] Comment on above: Performed By: #### U RCX #### [facility] [address] [address] [address] Anthony Bonilla LYMPH # 0.9 103/ul Critically low 1.2-3.8 [facility] Comment on above: Performed By: #### U RCX #### [facility] [address] [address] [address] Anthony Bonilla Lymphocytes/100 WBC (Bld) 6.1 % Critically low 20.5-60.0 [facility] Comment on above: Performed By: #### U RCX #### [facility] [address] [address] [address] Anthony Bonilla MANUAL DIFF REQ NO Normal [facility] Comment on above: Performed By: #### U RCX #### [facility] [address] [address] [address] Anthony Bonilla MCH (RBC) [Entitic mass] 32.7 pg Normal 26.7-34.0 [facility] Comment on above: Performed By: #### U RCX #### [facility] [address] [address] [address] Anthony Bonilla MCHC (RBC) [Mass/Vol] 33.0 g/dL Normal 29.9-35.2 [facility] Comment on above: Performed By: #### U RCX #### [facility] [address] [place] [address] Dr. Anthony Bonilla MCV (RBC) [Entitic vol] 99.1 fL Critically high 81.0-99.0 [facility] Comment on above: Performed By: #### U RCX #### [facility] [address] [address] [address] Anthony Bonilla MONO # 1.0 103/ul Critically high 0.3-0.8 [facility] Comment on above: Performed By: #### U RCX #### [facility] [address] [address] [address] Anthony Bonilla Monocytes/100 WBC (Bld) 6.8 % Normal 1.7-12.0 [facility] Comment on above: Performed By: #### U RCX #### [facility] [address] [address] [address] Anthony Bonilla NEUT # 12.1 103/ul Critically high 1.4-6.5 [facility] Comment on above: Performed By: #### U RCX #### [facility] [address] [address] [address] Anthony Bonilla Neutrophils/100 WBC (Bld) 86.2 % Critically high 43.0-75.0 [facility] Comment on above: Performed By: #### U RCX #### [facility] [address] [address] [address] Anthony Bonilla Platelet mean volume (Bld) [Entitic vol] 9.8 fL Normal 9.5-13.5 [facility] Comment on above: Performed By: #### U RCX #### [facility] [address] [place] [address] Dr. Anthony Bonilla PLT 175 103/ul Normal 150-450 [facility] Comment on above: Performed By: #### U RCX #### [facility] [address] [place] [address] Dr. Anthony Bonilla RBC 3.21 106/ul Critically low 4.20-5.40 [facility] Comment on above: Performed By: #### U RCX #### [facility] [address] [place] [address] Dr. Anthony Bonilla WBC 14.0 103/ul Critically high 4.0-11.0 [facility] Comment on above: Performed By: #### U RCX #### [facility] [address] [place] [address] HEAD WO CONon [...] HERNANDO HAMLIN Date: 2021-11-01 22:36 Normal [facility] PROF CHEM 8 (BAS METB)on Anion gap [Moles/Vol] 12.2 mmol/L Normal [facility] Comment on above: Performed By: #### C BC #### [facility] [address] [place] [address] Dr. Anthony Bonilla Calcium [Mass/Vol] 8.7 mg/dL Normal 8.5-10.1 [facility] Comment on above: Performed By: #### C BC #### [facility] [address] [address] [address] Anthony Bonilla Chloride [Moles/Vol] 103 mmol/L Normal 98-107 [facility] Comment on above: Performed By: #### C BC #### [facility] [address] [place] [address] Dr. Anthony Bonilla CO2 [Moles/Vol] 25.7 mmol/L Normal 21.0-32.0 [facility] Comment on above: Performed By: #### C BC #### [facility] [address] [address] [address] Anthony Bonilla Creatinine [Mass/Vol] 1.08 mg/dL Critically high 0.55-1.02 [facility] Comment on above: Performed By: #### C BC #### [facility] [address] [place] [address] Dr. Anthony Bonilla EGFR-AF VENEZUELAN 58 mL/min/1.73m2 Critically low >=60 [facility] Comment on above: Performed By: #### C BC #### [facility] [address] [place] [address] Dr. Anthony Bonilla EGFR-NON AF VENEZUELAN 48 mL/min/1.73m2 Critically low >=60 [facility] Comment on above: Performed By: #### C BC #### [facility] [address] [address] [address] Anthony Bonilla Glucose [Mass/Vol] 84 mg/dL Normal 74-106 [facility] Comment on above: Performed By: #### C BC #### [facility] [address] [address] [address] Anthony Bonilla Potassium [Moles/Vol] 4.9 mmol/L Normal 3.5-5.1 [facility] Comment on above: Performed By: #### C BC #### [facility] [address] [address] [address] Anthony Bonilla Sodium [Moles/Vol] 136 mmol/L Normal 136-145 [facility] Comment on above: Performed By: #### C BC #### [facility] [address] [address] [address] Anthony Bonilla Urea nitrogen [Mass/Vol] 33.0 mg/dL Critically high 7.0-18.0 [facility] Comment on above: Performed By: #### C BC #### [facility] [address] [address] [address] Anthony Bonilla Urea nitrogen/Creatinine [Mass ratio] 30.6 mg/mg Normal [facility] Comment on above: Performed By: #### C BC #### [facility] [address] [address] [address] Anthony Bonilla XR CHEST 1 Von [...] GIANA HOLLY Date: 2021-11-01 22:05 Normal [facility] CARDIAC DARWIN ADMITon 022 CK [Catalytic activity/Vol] 92 U/L Normal 26-192 [facility] Comment on above: Performed By: #### C BC #### [facility] [address] [place] [address] Dr. Anthony Bonilla CK.MB [Mass/Vol] 1.73 ng/mL Normal <=3.60 [facility] Comment on above: Performed By: #### C BC #### [facility] [address] [place] [address] Dr. Anthony Bonilla HSTROP 20.0 pg/mL Normal 4.0-51.3 [facility] Comment on above: Result Comment: CUT- OFF POINTS HAVE BEEN ESTABLISHED BASED ON THE FOURTH UNIVERSAL DEFINITIONS OF MYOCARDIAL INFARCTION. THE UPPER REFERENCE LIMIT (URL) OF TROPONIN, DEFINED THE 99TH PERCENTILE OF cTnI DISTRIBUTION IN A REFERENCE POPULATION, HAS BEEN CONFIRMED THE DECISION THRESHOLD FOR [place] DIAGNOSIS. Performed By: #### C BC #### [facility] [address] [place] [address] Dr. Anthony Bonilla CANDIDA 58 ng/mL Normal 9-82 [facility] Comment on above: Performed By: #### C BC #### [facility] [address] [place] [address] Dr. Anthony Bonilla CBC AUTO DIFFon 11-01-2021 BASO # 0.0 103/ul Normal 0.0-0.1 [facility] Comment on above: Performed By: #### U RCX #### [facility] [address] [place] [address] Dr. Anthony Bonilla Basophils/100 WBC (Bld) 0.2 % Normal 0.2-2.0 [facility] Comment on above: Performed By: #### U RCX #### [facility] [address] [place] [address] Dr. Anthony Bonilla EO # 0.0 103/ul Normal 0.0-0.7 [facility] Comment on above: Performed By: #### U RCX #### [facility] [address] [place] [address] Dr. Anthony Bonilla Eosinophils/100 WBC (Bld) 0.0 % Critically low 0.9-7.0 [facility] Comment on above: Performed By: #### U RCX #### [facility] [address] [address] [address] Anthony Bonilla Erythrocyte distribution width (RBC) [Ratio] 14.1 % Normal 11.0-15.0 [facility] Comment on above: Performed By: #### U RCX #### [facility] [address] [place] [address] Dr. Anthony Bonilla Hematocrit (Bld) [Volume fraction] 36.0 % Normal 36.0-48.0 [facility] Comment on above: Performed By: #### U RCX #### [facility] [address] [place] [address] Dr. Anthony Bonilla Hemoglobin (Bld) [Mass/Vol] 12.1 g/dL Normal 12.0-16.0 [facility] Comment on above: Performed By: #### U RCX #### [facility] [address] [place] [address] Dr. Anthony Bonilla IG # 0.11 10e3/ul Critically high 0.00-0.03 [facility] Comment on above: Performed By: #### U RCX #### [facility] [address] [place] [address] Dr. Anthony Bonilla IG % 0.5 % Normal 0.0-0.5 [facility] Comment on above: Performed By: #### U RCX #### [facility] [address] [place] [address] Dr. Anthony Bonilla LYMPH # 0.7 103/ul Critically low 1.2-3.8 [facility] Comment on above: Performed By: #### U RCX #### [facility] [address] [place] [address] Dr. Anthony Bonilla Lymphocytes/100 WBC (Bld) 3.2 % Critically low 20.5-60.0 [facility] Comment on above: Performed By: #### U RCX #### [facility] [address] [place] [address] Dr. Anthony Bonilla MANUAL DIFF REQ NO Normal [facility] Comment on above: Performed By: #### U RCX #### [facility] [address] [address] [address] Anthony Bonilla MCH (RBC) [Entitic mass] 33.0 pg Normal 26.7-34.0 [facility] Comment on above: Performed By: #### U RCX #### [facility] [address] [place] [address] Dr. Anthony Bonilla MCHC (RBC) [Mass/Vol] 33.6 g/dL Normal 29.9-35.2 [facility] Comment on above: Performed By: #### U RCX #### [facility] [address] [place] [address] Dr. Anthony Bonilla MCV (RBC) [Entitic vol] 98.1 fL Normal 81.0-99.0 [facility] Comment on above: Performed By: #### U RCX #### [facility] [address] [place] [address] Dr. Anthony Bonilla MONO # 1.1 103/ul Critically high 0.3-0.8 [facility] Comment on above: Performed By: #### U RCX #### [facility] [address] [place] [address] Dr. Anthony Bonilla Monocytes/100 WBC (Bld) 4.8 % Normal 1.7-12.0 [facility] Comment on above: Performed By: #### U RCX #### [facility] [address] [place] [address] Dr. Anthony Bonilla NEUT # 20.3 103/ul Critically high 1.4-6.5 [facility] Comment on above: Performed By: #### U RCX #### [facility] [address] [place] [address] Dr. Anthony Bonilla Neutrophils/100 WBC (Bld) 91.3 % Critically high 43.0-75.0 [facility] Comment on above: Performed By: #### U RCX #### [facility] [address] [place] [address] Dr. Anthony Bonilla Platelet mean volume (Bld) [Entitic vol] 10.8 fL Normal 9.5-13.5 [facility] Comment on above: Performed By: #### U RCX #### [facility] [address] [place] [address] Dr. Anthony Bonilla PLT 179 103/ul Normal 150-450 [facility] Comment on above: Performed By: #### U RCX #### [facility] [address] [place] [address] Dr. Anthony Bonilla RBC 3.67 106/ul Critically low 4.20-5.40 [facility] Comment on above: Performed By: #### U RCX #### [facility] [address] [place] [address] Dr. Anthony Bonilla WBC 22.2 103/ul Critically high 4.0-11.0 [facility] Comment on above: Performed By: #### U RCX #### [facility] [address] [place] [address] Dr. Anthony Bonilla CULTURE BLOODon 11-01-2021 Microscopic examination of blood, culture Culture Observations: NO GROWTH AT 5 DAYS. Normal [facility] Comment on above: Performed By: #### B LDCX2 #### [facility] [address] [place] [address] Dr. Anthony Bonilla Performed By: #### C BC #### [facility] [address] [place] [address] Dr. Anthony Bonilla Covid-19 PCR (CVDTB)on 10-10 SARS-CoV-2 (COVID-19) RNA OH+probe Ql (Unsp spec) Detected Critically abnormal NOT DETECTED [facility] Comment on above: Result Comment: This test is not yet approved or cleared by the [place] FDA. When there are no FDA-approved or cleared tests available, and other criteria are met, FDA can make tests available under an emergency access mechanism called an Emergency Use Authorization (EUA). The EUA for this test is supported by the [place] of Health and Human Service's declaration that [...] used). Performed By: #### C BC #### [facility] [address] [place] [address] Dr. Anthony Bonilla ER URINE PROFILEon 2 Bilirubin Ql (U) Negative Normal NEGATIVE [facility] Comment on above: Performed By: #### U RCX #### [facility] [address] [place] [address] Dr. Anthony Bonilla Clarity (U) CLEAR Normal CLEAR [facility] Comment on above: Performed By: #### U RCX #### [facility] [address] [place] [address] Dr. Anthony Bonilla Color (U) LT. YELLOW Normal YELLOW [facility] Comment on above: Performed By: #### U RCX #### [facility] [address] [place] [address] Dr. Anthony Bonilla ERUAHD A micrscopic examina tion will be performed if indicated. Normal [facility] Comment on above: Performed By: #### U RCX #### [facility] [address] [place] [address] Dr. Anthony Bonilla Glucose Ql (U) Negative Normal NEGATIVE [facility] Comment on above: Performed By: #### U RCX #### [facility] [address] [place] [address] Dr. Anthony Bonilla Hemoglobin Ql (U) TRACE-INTACT Abnormal NEGATIVE [facility] Comment on above: Performed By: #### U RCX #### [facility] [address] [place] [address] Dr. Anthony Bonilla Ketones Ql (U) Negative Normal NEGATIVE [facility] Comment on above: Performed By: #### U RCX #### [facility] [address] [place] [address] Dr. Anthony Bonilla LEUKOCYTES Negative Normal NEGATIVE [facility] Comment on above: Performed By: #### U RCX #### [facility] [address] [place] [address] Dr. Anthony Bonilla Nitrite Ql (U) Negative Normal NEGATIVE [facility] Comment on above: Performed By: #### U RCX #### [facility] [address] [place] [address] Dr. Anthony Bonilla pH (U) 6.0 [pH] Normal 5-9 [facility] Comment on above: Performed By: #### U RCX #### [facility] [address] [place] [address] Dr. Anthony Bonilla SPEC GRAVITY 1.020 Normal 1.005-<=1. 025 [facility] Comment on above: Performed By: #### U RCX #### [facility] [address] [place] [address] Dr. Anthony Bonilla UA PROTEIN Negative Normal NEGATIVE/ TRACE [facility] Comment on above: Performed By: #### U RCX #### [facility] [address] [place] [address] Dr. Anthony Bonilla UR MICRO IND INDICATED Normal [facility] Comment on above: Performed By: #### U RCX #### [facility] [address] [place] [address] Dr. Anthony Bonilla Urobilinogen Qn (U) 1.0 {Gen'U}/dL Normal 0.2 - 1. 0 [facility] Comment on above: Performed By: #### U RCX #### [facility] [address] [place] [address] Dr. Anthony Bonilla LACTATE/LACTIC ACIDon 2021 Lactate [Moles/Vol] 1.6 mmol/L Normal 0.4-1.[address] [facility] Comment on above: Performed By: #### C BC #### [facility] [address] [place] [address] Dr. Anthony Bonilla PROF 14(COMP METB)on 022 Albumin [Mass/Vol] 3.2 g/dL Critically low 3.4-5.0 [facility] Comment on above: Performed By: #### C BC #### [facility] [address] [place] [address] Dr. Anthony Bonilla Albumin/Globulin [Mass ratio] 0.9 {ratio} Normal [facility] Comment on above: Performed By: #### C BC #### [facility] [address] [address] [address] Anthony Bonilla ALP [Catalytic activity/Vol] 26 U/L Critically low 46-116 [facility] Comment on above: Performed By: #### C BC #### [facility] [address] [address] [address] Anthony Bonilla ALT [Catalytic activity/Vol] 32 U/L Normal 14-59 [facility] Comment on above: Performed By: #### C BC #### [facility] [address] [place] [address] Dr. Anthony Bonilla Anion gap [Moles/Vol] 11.5 mmol/L Normal [facility] Comment on above: Performed By: #### C BC #### [facility] [address] [place] [address] Dr. Anthony Bonilla AST [Catalytic activity/Vol] 16 U/L Normal 15-37 [facility] Comment on above: Performed By: #### C BC #### [facility] [address] [place] [address] Dr. Anthony Bonilla Bilirubin [Mass/Vol] 1.2 mg/dL Critically high 0.2-1.0 [facility] Comment on above: Performed By: #### C BC #### [facility] [address] [place] [address] Dr. Anthony Bonilla Calcium [Mass/Vol] 9.0 mg/dL Normal 8.5-10.1 [facility] Comment on above: Performed By: #### C BC #### [facility] [address] [place] [address] Dr. Anthony Bonilla Chloride [Moles/Vol] 102 mmol/L Normal 98-107 [facility] Comment on above: Performed By: #### C BC #### [facility] [address] [place] [address] Dr. Anthony Bonilla CO2 [Moles/Vol] 25.2 mmol/L Normal 21.0-32.0 [facility] Comment on above: Performed By: #### C BC #### [facility] [address] [address] [address] Anthony Bonilla Creatinine [Mass/Vol] 1.25 mg/dL Critically high 0.55-1.02 [facility] Comment on above: Performed By: #### C BC #### [facility] [address] [address] [address] Anthony Bonilla EGFR-AF VENEZUELAN 49 mL/min/1.73m2 Critically low >=60 [facility] Comment on above: Performed By: #### C BC #### [facility] [address] [address] [address] Anthony Bonilla EGFR-NON AF [place]ENE[place]UELAN 41 mL/min/1.73m2 Critically low >=60 [facility] Comment on above: Performed By: #### C BC #### [facility] [address] [address] [address] Anthony Bonilla Globulin (S) [Mass/Vol] 3.4 g/dL Normal [facility] Comment on above: Performed By: #### C BC #### [facility] [address] [address] [address] Anthony Bonilla Glucose [Mass/Vol] 102 mg/dL Normal 74-106 [facility] Comment on above: Performed By: #### C BC #### [facility] [address] [address] [address] Anthony Bonilla Potassium [Moles/Vol] 4.7 mmol/L Normal 3.5-5.1 [facility] Comment on above: Performed By: #### C BC #### [facility] [address] [address] [address] Anthony Bonilla Protein [Mass/Vol] 6.6 g/dL Normal 6.4-8.2 [facility] Comment on above: Performed By: #### C BC #### [facility] [address] [address] [address] Anthony Bonilla Sodium [Moles/Vol] 134 mmol/L Critically low 136-145 [facility] Comment on above: Performed By: #### C BC #### [facility] [address] [place] [address] Dr. Anthony Bonilla Urea nitrogen [Mass/Vol] 33.0 mg/dL Critically high 7.0-18.0 [facility] Comment on above: Performed By: #### C BC #### [facility] [address] [place] [address] Dr. Anthony Bonilla Urea nitrogen/Creatinine [Mass ratio] 26.4 mg/mg Normal [facility] Comment on above: Performed By: #### C BC #### [facility] [address] [place] [address] Dr. Anthony Bonilla PROTIMEon 11-01-2021 INR Coag (PPP) [Relative time] 0.97 {INR} Normal [facility] Comment on above: Performed By: #### U RCX #### [facility] [address] [place] [address] Dr. Anthony Bonilla INR GUIDELINES SEE BELOW Normal [facility] Comment on above: Result Comment: MEGAN RED INR: 2.0 - 3.0 CONDITIONS NOT LISTED BELOW 2.5 - 3.5 FOR PROSTHETIC HEART VALVE REPLACEMENT 2.5 - 3.5 RECURRENT THROMBOSIS Performed By: #### U RCX #### [facility] [address] [place] [address] Dr. Anthony Bonilla PT Coag (PPP) [Time] 10.5 s Normal 9.0-11.6 [facility] Comment on above: Performed By: #### U RCX #### [facility] [address] [place] [address] Dr. Anthony Bonilla PTTon 11-01-2021 aPTT Coag (Bld) [Time] 27.8 s Normal 22.3-36.2 [facility] Comment on above: Performed By: #### U RCX #### [facility] [address] [place] [address] Dr. Anthony Bonilla TSHon 11-01-2021 TSH 1.011 uIU/mL Normal 0.358-3.74 0 [facility] Comment on above: Performed By: #### C BC #### [facility] [address] [place] [address] Dr. Anthony Bonilla URINE MICROSCOPIC ONLYon BACTERIA LARGE Abnormal NONE SEEN [facility] Comment on above: Performed By: #### U RCX #### [facility] [address] [place] [address] Dr. Anthony Bonilla Bacteria identified Cx Nom (U) INDICATED Normal [facility] Comment on above: Performed By: #### U RCX #### [facility] [address] [place] [address] Dr. Anthony Bonilla CAST NONE SEEN Normal NONE SEEN [facility] Comment on above: Performed By: #### U RCX #### [facility] [address] [place] [address] Dr. Anthony Bonilla Crystals LM Nom (Urine sed) NONE SEEN Normal NONE SEEN [facility] Comment on above: Performed By: #### U RCX #### [facility] [address] [place] [address] Dr. Anthony Bonilla Epithelial cells LM Ql (Urine sed) FEW Abnormal NONE SEEN /RARE [facility] Comment on above: Performed By: #### U RCX #### [facility] [address] [place] [address] Dr. Anthony Bonilla MUCOUS NONE SEEN Normal NONE SEEN [facility] Comment on above: Performed By: #### U RCX #### [facility] [address] [place] [address] Dr. Anthony Bonilla RBC 2-5 Abnormal 0-2 [facility] Comment on above: Performed By: #### U RCX #### [facility] [address] [place] [address] Dr. Anthony Bonilla WBC 0-2 Abnormal NONE SEEN [facility] Comment on above: Performed By: #### U RCX #### [facility] [address] [place] [address] Dr. Anthony Bonilla Covid-19 PCR (CVDTB)on SARS-CoV-2 (COVID-19) RNA OH+probe Ql (Unsp spec) Detected Critically abnormal NOT DETECTED [facility] Comment on above: Result Comment: This test is not yet approved or cleared by the [place] FDA. When there are no FDA-approved or cleared tests available, and other criteria are met, FDA can make tests available under an emergency access mechanism called an Emergency Use Authorization (EUA). The EUA for this test is supported by the [place] of Health and Human Service's declaration that [...] used). Performed By: #### C BC #### [facility] [address] [place] [address] Dr. Anthony Bonilla Covid-19 PCR ([facility])on SARS-CoV-2 (COVID-19) RNA OH+probe Ql (Unsp spec) Not detected Normal NOT DETECTED [facility] Comment on above: Result Comment: This test is not yet approved or cleared by the [place] FDA. When there are no FDA-approved or cleared tests available, and other criteria are met, FDA can make tests available under an emergency access mechanism called an Emergency Use Authorization (EUA). The EUA for this test is supported by the [employer] of Health and Human Service's (HHS's) declaration [...] SARS-CoV-2. Performed By: #### U RCX #### [facility] [address] [place] [address] Dr. 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 However, the narrative phrase printed from the coding software may appear abbreviated, or result in slightly different terminology. Revised Coded By: Ambar Manley Revised Date Saved: 10/19/2019 05:41 am Normal [facility] Coding Queryon 10-02-2019 Coding Query HIM CODING QUERY FOR Accurate coding and billing requires that the principal diagnosis, secondary diagnosis and procedures be supported by physician documentation and that this documentation be reflected in the discharge summary (if required for patient type). Any time this information is not complete, it is the lease administration analyst?s responsibility to query the physician. Based on [...] and timely attention to this matter. Ambar Malney Hoop Rolls Operator Ext [phone] [Electronically Signed on: 10/18/2019 21:40 EDT] Mi Licea DO [Verified on: 10/18/2019 21:40 EDT] Mi Licea DO [Transcribed on: 10/02/2019 11:06 EDT] [facility] Consent Formson 09-29-2019 Consent Forms [id number]#1.00[facility] Medication Managementon 09-09 Medication Management [id number]#1.00[facility] Outside Recordson 09-29-2019 Outside Records [id number]#1.00[facility] Outside Records [id number]#1.00[facility] Provider Orderson 09-29-2019 Provider Orders [id number]#1.00[facility] Telemetry Stripson 0 Telemetry Strips [id number]#1.00[facility] .Auto Diff 1on 2019 Auto [place] % 11 % Normal 02-19 [facility] Comment on above: Performed By: #### 1 [id number], [id number], [id number] #### [facility] (DEFAULT) [address] [place] [address]183 Baso Abs# 0.0 x10 Normal 0.0-0.2 [facility] Comment on above: Performed By: #### 1 [id number], [id number], [id number] #### [facility] (DEFAULT) [address] [place] [address]239 Basophils/100 WBC (Bld) 0.1 % Low 0.2-2.0 [facility] Comment on above: Performed By: #### 1 [id number], [id number], [id number] #### [facility] (DEFAULT) [address] [place] [address] 06763 Eos Abs# 0.2 x10 Normal 0.0-0.4 [facility] Comment on above: Performed By: #### 1 [id number], [id number], [id number] #### [facility] (DEFAULT) [address] [place] [address] 76961 Eosinophils/100 WBC (Bld) 2.2 % Normal 0.9-4.0 [facility] Comment on above: Performed By: #### 1 [id number], [id number], [id number] #### [facility] (DEFAULT) [address] [place] [address] 17595 Lymphocytes (Bld) [#/Vol] 0.6 x10 Low 1.3-2.9 [facility] Comment on above: Performed By: #### 1 [id number], [id number], [id number] #### [facility] (DEFAULT) [address] [place] [address] 87151 Lymphocytes/100 WBC (Bld) 6 % Low 14-48 [facility] Comment on above: Performed By: #### 1 [id number], [id number], [id number] #### [facility] (DEFAULT) [address] [place] [address] [place] Abs# 1.0 x10 High 0.0-0.8 [facility] Comment on above: Performed By: #### 1 [id number], [id number], [id number] #### [facility] (DEFAULT) [address] [place] [address] Neut Abs# 7.2 x10 Normal 1.5-9.2 [facility] Comment on above: Performed By: #### 1 [id number], [id number], [id number] #### [facility] (DEFAULT) [address] [place] [address] Neutrophils/100 WBC (Bld) 80 % Normal 44-88 [facility] Comment on above: Performed By: #### 1 [id number], [id number], [id number] #### [facility] (DEFAULT) [address] [place] [address] CBC w/ Auto Diffon 0 Erythrocyte distribution width (RBC) [Ratio] 14.4 % Normal 11.5-15.0 [facility] Comment on above: Performed By: #### 1 [id number], [id number], [id number] #### [facility] (DEFAULT) [address] [place] [address] Hematocrit (Bld) [Volume fraction] 36.2 % Normal 33.7-40.4 [facility] Comment on above: Performed By: #### 1 [id number], [id number], [id number] #### [facility] (DEFAULT) [address] [place] [address] Hemoglobin (Bld) [Mass/Vol] 11.9 g/dL Normal 11.3-15.9 [facility] Comment on above: Performed By: #### 1 [id number], [id number], [id number] #### [facility] (DEFAULT) [address] [place] [address] Man Diff? Auto Normal [facility] Comment on above: Performed By: #### 1 [id number], [id number], [id number] #### [facility] (DEFAULT) [address] [place] [address] MCH (RBC) [Entitic mass] 33 pg Normal 24-34 [facility] Comment on above: Performed By: #### 1 [id number], [id number], [id number] #### [facility] (DEFAULT) [address] [place] [address] MCHC (RBC) [Mass/Vol] 33 g/dL Normal 26-37 [facility] Comment on above: Performed By: #### 1 [id number], [id number], [id number] #### [facility] (DEFAULT) [address] [place] [address] MCV (RBC) [Entitic vol] 100 fL Normal 81-100 [facility] Comment on above: Performed By: #### 1 [id number], [id number], [id number] #### [facility] (DEFAULT) [address] [place] [address] Platelet mean volume (Bld) [Entitic vol] 9.6 fL Normal 6.3-10.2 [facility] Comment on above: Performed By: #### 1 [id number], [id number], [id number] #### [facility] (DEFAULT) [address] [place] [address] Platelets (Bld) [#/Vol] 286 x10 Normal 138-427 [facility] Comment on above: Performed By: #### 1 [id number], [id number], [id number] #### [facility] (DEFAULT) [address] [place] [address] 60469 RBC (Bld) [#/Vol] 3.61 x10 Low 3.70-5.30 [facility] Comment on above: Performed By: #### 1 [id number], [id number], [id number] #### [facility] (DEFAULT) [address] [place] [address] 42727 WBC (Bld) [#/Vol] 9.0 x10 [facility] Comment on above: Performed By: #### 1 [id number], [id number], [id number] #### [facility] (DEFAULT) [address] [place] [address] Education Noteon 2019 Education Note Education Materials [...] be done to rule of a DVT. [facility] Greenon 2019 Tube Collected Yes [facility] Comment on above: Performed By: #### 1 [id number], [id number], [id number] #### [facility] (DEFAULT) [address] [place] [address] Inpatient Patient Summaryon 2019 Inpatient Patient Summary [facility] [address] [place] [address] Patient Discharge Instructions Name: DELICIA HSU : 1935 Patient Address: [address] [place] [address] Primary Care Provider: Name: Gypsy Mcmahon MD After you are discharged if you find you have any questions, please, call [phone] ext [phone] to speak to a nurse. Discharge Diagnosis: Primary localized osteoarthritis of left hip Prescription Information: If you have been given a prescription for narcotics, seek immediate medical attention if you have any difficulty breathing or any sudden status changes such as confusion and sleepiness. If you or anyone you know is experiencing suicidal thoughts, mental health, alcohol and/or drug addiction problems; contact the [facility] 31/08 Crisis Hotline -text 4HGXH eg 549400. If you received any narcotics, sedation, or [...] business decisions or sign any legal documents [facility] would like to thank you for allowing us to assist you with your healthcare needs. The following includes patient education materials and information regarding your injury/illness. DELICIA HSU has been given the following list of follow-up instructions, prescriptions, and patient education materials: Follow-up Instructions With: Address: When: Mi Licea [address] [place] [address], [address] [place] [address] Business (2) 10/03/2019 8:30 AM With: Address: When: Gypsy Mcmahon [address] [place] [address], [address] [place] [phone] Business (1) Medications During the course of [...] for Disease Control and Prevention October 2013 [facility] Progress Note - Nurseon 09-09 MCH (RBC) [Entitic mass] Pt. transferred to bed times one [...] on: 2019 11:52 EDT] Pan Regalado RN [facility] Progress Note - Nurse Pt. reports intermittent left upper inner thigh grabbing pain. Pt. moans during these episodes. Tramadol given. Pt. repostioned for comfort. No change in the muscle spasms. Dr. Chacko informed in person. No orders received. [Electronically Signed on: 2019 09:32 EDT] Pan Regalado RN [Verified on: 2019 09:32 EDT] Pan Regalado RN [facility] Progress Note-Physicianon Progress Note-Physician DATE OF [...] PROGNOSIS: Good. Devorah Redd DO JOB #: [id number] [Electronically Signed on: 2019 13:04 EDT] DEVORAH REDD DO [Verified on: 2019 13:04 EDT] HERIBERTODEVORAH [Transcribed on: 2019 11:05 EDT] GDU Normal [facility] .Auto Diff 1on 09-27-2019 Auto [place] % 9 % Normal 1-12 [facility] Comment on above: Performed By: #### 1 [id number], [id number], [id number] #### [facility] [facility] (DEFAULT) [address] [place] [address] Baso Abs# 0.0 x10 Normal 0.0-0.2 [facility] Comment on above: Performed By: #### 1 [id number], [id number], 8698503 #### [facility] (DEFAULT) [address] [place] [address] Basophils/100 WBC (Bld) 0.1 % Low 0.2-2.0 [facility] Comment on above: Performed By: #### 1 [id number], 91089174, 8306530 #### [facility] (DEFAULT) [address] [place] [address] 84047 Eos Abs# 0.2 x10 Normal 0.0-0.4 [facility] Comment on above: Performed By: #### 1 [id number], 73147620, 5067098 #### [facility] (DEFAULT) [address] [place] [address] 62744 Eosinophils/100 WBC (Bld) 1.6 % Normal 0.9-4.0 [facility] Comment on above: Performed By: #### 1 [id number], 24639959, 4035551 #### [facility] (DEFAULT) [address] [place] [address] 64037 Lymphocytes (Bld) [#/Vol] 0.5 x10 Low 1.3-2.9 [facility] Comment on above: Performed By: #### 1 [id number], 98075613, 8789666 #### [facility] (DEFAULT) [address] [place] [address] 42949 Lymphocytes/100 WBC (Bld) 4 % Low 14-48 [facility] Comment on above: Performed By: #### 1 [id number], 28413631, 5029171 #### [facility] (DEFAULT) [address] [place] [address] [place] Abs# 1.2 x10 High 0.0-0.8 [facility] Comment on above: Performed By: #### 1 [id number], 02123058, 2063598 #### [facility] (DEFAULT) [address] [place] [address] Neut Abs# 11.5 x10 High 1.5-9.2 [facility] Comment on above: Performed By: #### 1 [id number], 32853938, 1130544 #### [facility] (DEFAULT) [address] [place] [address] Neutrophils/100 WBC (Bld) 86 % Normal 44-88 [facility] Comment on above: Performed By: #### 1 [id number], 50651783, 2079749 #### [facility] (DEFAULT) [address] [place] [address] C Urineon 09-27-2019 C Urine Urine Culture [...] <=4 Verified Tri/Sulf S <=2/38 Verified Normal [facility] Comment on above: Performed By: #### 7 [id number], [id number], [id number] #### [facility] (DEFAULT) [address] [place] [address] 13262 CBC w/ Auto Diffon 0 Erythrocyte distribution width (RBC) [Ratio] 14.5 % Normal 11.5-15.0 [facility] Comment on above: Performed By: #### 1 [id number], 05769589, 5008340 #### [facility] (DEFAULT) [address] [place] [address] 42427 Hematocrit (Bld) [Volume fraction] 39.2 % Normal 33.7-40.4 [facility] Comment on above: Performed By: #### 1 [id number], 13351373, 2723743 #### [facility] (DEFAULT) [address] [place] [address] 19007 Hemoglobin (Bld) [Mass/Vol] 12.8 g/dL Normal 11.3-15.9 [facility] Comment on above: Performed By: #### 1 [id number], 44623694, 3514484 #### [facility] (DEFAULT) [address] [place] [address] 52806 Man Diff? Auto Normal [facility] Comment on above: Performed By: #### 1 [id number], 45184833, 6519629 #### [facility] (DEFAULT) [address] [place] [address] 99878 MCH (RBC) [Entitic mass] 33 pg Normal 24-34 [facility] Comment on above: Performed By: #### 1 [id number], 92777546, 5974206 #### [facility] (DEFAULT) [address] [place] [address] 60133 MCHC (RBC) [Mass/Vol] 33 g/dL Normal 26-37 [facility] Comment on above: Performed By: #### 1 [id number], 23994182, 1187742 #### [facility] (DEFAULT) [address] [place] [address] 82556 MCV (RBC) [Entitic vol] 101 fL High 81-100 [facility] Comment on above: Performed By: #### 1 [id number], 14757486, 2518755 #### [facility] (DEFAULT) [address] [place] [address] 84032 Platelet mean volume (Bld) [Entitic vol] 9.8 fL Normal 6.3-10.2 [facility] Comment on above: Performed By: #### 1 [id number], 88368147, 9913561 #### [facility] (DEFAULT) [address] [place] [address] 19286 Platelets (Bld) [#/Vol] 266 x10 Normal 138-427 [facility] Comment on above: Performed By: #### 1 [id number], 03542102, 7878699 #### [facility] (DEFAULT) [address] [place] [address] 25579 RBC (Bld) [#/Vol] 3.89 x10 Normal 3.70-5.30 [facility] Comment on above: Performed By: #### 1 [id number], 18443243, 9512003 #### [facility] (DEFAULT) [address] [place] [address] 32585 WBC (Bld) [#/Vol] 13.4 x10 [facility] Comment on above: Result Comment: Slid e Reviewed Performed By: #### 1 [id number], 37350581, 6876987 #### [facility] (DEFAULT) [address] [place] [address] 66562 Coding Summaryon 09-27-2019 Coding Summary CODING DATE: 020 [facility] STATUS: Home PAYOR: Medicare ADMIT [...] Marisela Lawrence Date Saved: 09/27/2019 11:11 am [facility] Extra Greenon 08-19-2020 Tube Collected Yes [facility] Comment on above: Performed By: #### 1 [id number], 60049690, 2516793 #### [facility] (DEFAULT) [address] [id number] Nutrition Noteon 09-27-2019 Nutrition Note Pt eating poorly, av g less than 30% of meals per intake records. Supplements also taken sporadically. Suspect pain and constipation may be playing a role. No new wts. Last BM 09/23. Possible discharge later today. Will continue to follow and monitor need to adjust supplements ie. offer to make into a milkshake, [facility] Pharmacy Noteon 09-27-2019 Pharmacy Note I [...] [Verified on: 09/27/2019 14:01 EDT] Virgie Santos [facility] Progress Note - Nurseon 09-08 Progress Note - Nurse 1800 one dulcolax suppository administered, will continue to monitor. [Electronically Signed on: 09/27/2019 18:03 EDT] Luli Mclain RN [Verified on: 09/27/2019 18:03 EDT] Luli Mclain RN [facility] Progress Note - Nurse 1710 tramadol 50mg po administered for #10 left upper thigh pain , will continue to monitor. [Electronically Signed on: 09/27/2019 17:09 EDT] Luli Mclain RN [Verified on: 09/27/2019 17:09 EDT] Luli Mclain RN [facility] Progress Note-Physicianon Progress Note-Physician DATE OF [...] PROGNOSIS: Good. Devorah Redd DO JOB #: [id number] [Electronically Signed on: 2019 10:28 EDT] DEVORAH REDD DO [Verified on: 2019 10:28 EDT] DEVORAH REDD DO [Transcribed on: 09/27/2019 13:52 EDT] GDU Normal [facility] .Auto Diff 1on 09-26-2019 Auto [place] % 9 % Normal 1-12 [facility] Comment on above: Performed By: #### 1 [id number], 52309451, 4892970 #### [facility] (DEFAULT) [address] [place] [address] Baso Abs# 0.0 x10 Normal 0.0-0.2 [facility] Comment on above: Performed By: #### 1 [id number], 12392647, 6604161 #### [facility] (DEFAULT) [address] [place] [address] Basophils/100 WBC (Bld) 0.1 % Low 0.2-2.0 [facility] Comment on above: Performed By: #### 1 [id number], 06307013, 7584187 #### [facility] (DEFAULT) [address] [place] [address] Eos Abs# 0.2 x10 Normal 0.0-0.4 [facility] Comment on above: Performed By: #### 1 [id number], 31685051, 0301844 #### [facility] (DEFAULT) [address] [place] [address] Eosinophils/100 WBC (Bld) 2.0 % Normal 0.9-4.0 [facility] Comment on above: Performed By: #### 1 [id number], 24101249, 2804681 #### [facility] (DEFAULT) [address] [place] [address] Lymphocytes (Bld) [#/Vol] 0.6 x10 Low 1.3-2.9 [facility] Comment on above: Performed By: #### 1 [id number], 45192726, 1302857 #### [facility] (DEFAULT) [address] [place] [address] Lymphocytes/100 WBC (Bld) 6 % Low 14-48 [facility] Comment on above: Performed By: #### 1 [id number], 99451479, 4514204 #### [facility] (DEFAULT) [address] [place] [address] [place] Abs# 0.9 x10 High 0.0-0.8 [facility] Comment on above: Performed By: #### 1 [id number], 30944484, 4515337 #### [facility] (DEFAULT) [address] [place] [address] Neut Abs# 8.3 x10 Normal 1.5-9.2 [facility] Comment on above: Performed By: #### 1 [id number], 43075561, 9704594 #### [facility] (DEFAULT) [address] [place] [address] Neutrophils/100 WBC (Bld) 83 % Normal 44-88 [facility] Comment on above: Performed By: #### 1 [id number], 00776504, 1297090 #### [facility] (DEFAULT) [address] [place] [address] BMP Standardon 09-26-2019 eGFR Non AA 48 mL/min/1.73m2 [facility] Comment on above: Performed By: #### 1 [id number], 97712465, 6175068 #### [facility] (DEFAULT) [address] [place] [address] 76916 eGFR AA 58 mL/min/1.73m2 [facility] Comment on above: Result Comment: Aviation Neuropsychologist kody Kidney disease could be indicated at eGFRs of less than 60 ml/min/1.73m2. Kidney Failure is indicated at less than 15 ml/min/1.73m2 Performed By: #### 1 [id number], 48107294, 2472766 #### [facility] (DEFAULT) [address] [place] [address] 31459 Anion gap [Moles/Vol] 10.0 mmol/L Normal 5.0-19.0 [facility] Comment on above: Performed By: #### 1 [id number], 81867828, 0902428 #### [facility] (DEFAULT) [address] [place] [address] 43680 Calcium [Mass/Vol] 8.8 mg/dL Low 8.9-10.3 [facility] Comment on above: Performed By: #### 1 [id number], 08279191, 4531049 #### [facility] (DEFAULT) [address] [place] [address] 52708 Chloride [Moles/Vol] 103 mmol/L Normal 101-111 [facility] Comment on above: Performed By: #### 1 [id number], 28487421, 3418373 #### [facility] (DEFAULT) [address] [place] [address] 64069 CO2 [Moles/Vol] 28 mmol/L Normal 21-32 [facility] Comment on above: Performed By: #### 1 [id number], 40938844, 2477578 #### [facility] (DEFAULT) [address] [place] [address] 33484 Creatinine [Mass/Vol] 1.09 mg/dL Normal 0.60-1.30 [facility] Comment on above: Performed By: #### 1 [id number], 20487529, 0911579 #### [facility] (DEFAULT) [address] [place] [address] 14763 Glucose [Mass/Vol] 94.0 mg/dL Normal 74.0-118.0 [facility] Comment on above: Performed By: #### 1 [id number], 44328265, 4606976 #### [facility] (DEFAULT) [address] [place] [address] 68748 Osmolality [Osmolality] 276 mOsm/L [facility] Comment on above: Performed By: #### 1 [id number], 19355743, 7200058 #### [facility] (DEFAULT) [address] [place] [address] 57771 Potassium [Moles/Vol] 4.4 mmol/L Normal 3.6-5.1 [facility] Comment on above: Performed By: #### 1 [id number], 51068329, 6024418 #### [facility] (DEFAULT) [address] [place] [address] Sodium [Moles/Vol] 137.0 mmol/L Normal 136.0-144 . 0 [facility] Comment on above: Performed By: #### 1 [id number], 53887040, 9475597 #### [facility] (DEFAULT) [address] [place] [address] 12485 Urea nitrogen [Mass/Vol] 19 mg/dL Normal 8-26 [facility] Comment on above: Performed By: #### 1 [id number], 86881366, 9000362 #### [facility] (DEFAULT) [address] [place] [address] 00513 Urea nitrogen/Creatinine [Mass ratio] 17.0 mg/mg High 4.6-16.2 [facility] Comment on above: Performed By: #### 1 [id number], 66714507, 8221881 #### [facility] (DEFAULT) [address] [place] [address] 76661 CBC w/ Auto Diffon 0 Erythrocyte distribution width (RBC) [Ratio] 14.4 % Normal 11.5-15.0 [facility] Comment on above: Performed By: #### 1 [id number], 64934418, 7144185 #### [facility] (DEFAULT) [address] [place] [address] Hematocrit (Bld) [Volume fraction] 35.5 % Normal 33.7-40.4 [facility] Comment on above: Performed By: #### 1 [id number], 01058013, 0509285 #### [facility] (DEFAULT) [address] [place] [address] Hemoglobin (Bld) [Mass/Vol] 11.6 g/dL Normal 11.3-15.9 [facility] Comment on above: Performed By: #### 1 [id number], 29920857, 3501663 #### [facility] (DEFAULT) [address] [place] [address] Man Diff? Auto Normal [facility] Comment on above: Performed By: #### 1 [id number], 17928230, 2716016 #### [facility] (DEFAULT) [address] [place] [address] MCH (RBC) [Entitic mass] 33 pg Normal 24-34 [facility] Comment on above: Performed By: #### 1 [id number], 77145216, 6817593 #### [facility] (DEFAULT) [address] [place] [address] 65293 MCHC (RBC) [Mass/Vol] 33 g/dL Normal 26-37 [facility] Comment on above: Performed By: #### 1 [id number], 58813799, 4730438 #### [facility] (DEFAULT) [address] [place] [address] MCV (RBC) [Entitic vol] 102 fL High 81-100 [facility] Comment on above: Performed By: #### 1 [id number], 82624423, 2317655 #### [facility] (DEFAULT) [address] [place] [address] 59669 Platelet mean volume (Bld) [Entitic vol] 9.8 fL Normal 6.3-10.2 [facility] Comment on above: Performed By: #### 1 [id number], 90491910, 7221567 #### [facility] (DEFAULT) [address] [place] [address] Platelets (Bld) [#/Vol] 236 x10 Normal 138-427 [facility] Comment on above: Performed By: #### 1 [id number], 26183394, 0811932 #### [facility] (DEFAULT) [address] [place] [address] 21774 RBC (Bld) [#/Vol] 3.49 x10 Low 3.70-5.30 [facility] Comment on above: Performed By: #### 1 [id number], 31034493, 9608474 #### [facility] (DEFAULT) [address] [place] [address] 90469 WBC (Bld) [#/Vol] 10.0 x10 [facility] Comment on above: Performed By: #### 1 [id number], 44954456, 4575365 #### [facility] (DEFAULT) [address] [place] [address] 51487 Consent Formson 09-26-2019 Consent Forms [id number] [facility] Consultation/Specialist Note on 09-26-2019 Consultation/Specia list Note [...] [Verified on: 09/26/2019 07:35 EDT] SUDHEER PIKE [facility] Progress Note - Nurseon 08- Progress Note - Nurse On 09/25/2019 this [...] 09/26/2019 07:45 EDT] Nancy CHAIDEZ, Twila Normal [facility] .Auto Diff 1on 09-25-2019 Auto [place] % 8 % Normal 1-12 [facility] Comment on above: Performed By: #### 1 [id number], 75186107, 3143651 #### [facility] (DEFAULT) [address] [place] [address] 75269 Baso Abs# 0.0 x10 Normal 0.0-0.2 [facility] Comment on above: Performed By: #### 1 [id number], 78901224, 2226314 #### [facility] (DEFAULT) [address] [place] [address] 54545 Basophils/100 WBC (Bld) 0.2 % Normal 0.2-2.0 [facility] Comment on above: Performed By: #### 1 [id number], 18212030, 7412760 #### [facility] (DEFAULT) [address] [place] [address] 34948 Eos Abs# 0.1 x10 Normal 0.0-0.4 [facility] Comment on above: Performed By: #### 1 [id number], 74274402, 2608974 #### [facility] (DEFAULT) [address] [place] [address] 03486 Eosinophils/100 WBC (Bld) 0.5 % Low 0.9-4.0 [facility] Comment on above: Performed By: #### 1 [id number], 16289858, 3038481 #### [facility] (DEFAULT) [address] [place] [address] 71820 Lymphocytes (Bld) [#/Vol] 1.1 x10 Low 1.3-2.9 [facility] Comment on above: Performed By: #### 1 [id number], 21258885, 5233289 #### [facility] (DEFAULT) [address] [place] [address] 12106 Lymphocytes/100 WBC (Bld) 9 % Low 14-48 [facility] Comment on above: Performed By: #### 1 [id number], 87264892, 1297887 #### [facility] (DEFAULT) [address] [place] [address] [place] Abs# 1.0 x10 High 0.0-0.8 [facility] Comment on above: Performed By: #### 1 [id number], 87659019, 5522598 #### [facility] (DEFAULT) [address] [place] [address] Neut Abs# 9.6 x10 High 1.5-9.2 [facility] Comment on above: Performed By: #### 1 [id number], 46612843, 4114952 #### [facility] (DEFAULT) [address] [place] [address] Neutrophils/100 WBC (Bld) 82 % Normal 44-88 [facility] Comment on above: Performed By: #### 1 [id number], 68147422, 2673509 #### [facility] (DEFAULT) [address] [place] [address] ABORhon 09-25-2019 ABO and Rh group Nom (d) Hx Check: Not Found Anti-A: 4+ Anti-B: 0 Anti-D: 4+ DCon: NT A1: 0 B: 4+ ABORh Interp: A POS [facility] Comment on above: Performed By: #### 7 [id number], 63802117, [id number] #### [facility] (DEFAULT) [address] [place] [address] ABORh Retypeon 09-25-2019 ABO and Rh group Nom (d) Ordered by Discern. Anti-A: 4+ Anti-B: 0 Anti-D: 4+ DCon: NT A1: 0 B: 4+ ABORh Retype: A POS [facility] Comment on above: Performed By: #### 7 [id number], 35977488, [id number] #### [facility] (DEFAULT) [address] [place] [address] ABSC Gelon 09-25-2019 ABSC Gel Negative Normal [facility] Comment on above: Performed By: #### 7 [id number], 37049107, [id number] #### [facility] (DEFAULT) [address] [place] [address] Anesthesia Noteon 09-25-2019 Anesthesia Note Patient: DONTAE [...] risk of pressure sore / SNOMED CT 218156533 / Confirmed CAD (coronary artery disease) / SNOMED CT 94505414 / Confirmed Hyperlipidemia / SNOMED CT 47100679 / Confirmed Hypertension / SNOMED CT 9106895802 / Confirmed Skin cancer / SNOMED CT 8950624603 / Confirmed Osteoporosis / SNOMED CT 831666463 / Confirmed Restless leg syndrome / SNOMED CT 24402165 / Confirmed Resolved: GERD (gastroesophageal reflux disease) / SNOMED CT 697614223 Histories Family History: Cancer Sister Brother Aneurysm Mother CHF - Congestive heart failure Father [place] (myocardial infarction) Sister Procedure history: Umbilical hernia (8184133603). Arthroscopy (40644318). Comments: 08/29/2019 12:57 Dionne Mccarty RN arthroscopy of knee Cholecystectomy (83519772). Hysterectomy (344351936). Cataract (689741066). Shoulder (72717442). Comments: 08/29/2019 12:58 Dionne Mccarty RN arthroscopy CABG (Coronary artery bypass grafting) planned (542333172). Colonoscopy (560854509). EGD - Esophagogastroduodenoscopy (8792515197). Meniscectomy (239570153). Hip arthroplasty (734692831). Social History Electronic Cigarette/Vaping Assessment Electronic Cigarette [...] axis dev, LAFB, RV conduction delay. Plan [place] [employer]#(ASA) physical status classification: Class III. Anesthetic Preoperative Plan Anesthesia: Regional Spinal. Anesthetic plan, risks, benefits, and alternatives discussed with the patient and/or family. Patient verbalized understanding. Informed consent was given. Consent was signed by the patient. [Electronically Signed on: 09/25/2019 10:10 EDT] Enrike Mora MD [Verified on: 09/25/2019 10:10 EDT] Enrike Mora MD Normal [facility] Blood Bank IDon 09-25-2019 Blood Bank ID BBID: [id number] [facility] Comment on above: Performed By: #### 7 [id number], [id number], [id number] #### [facility] (DEFAULT) [address] [place] [address] 46814 CBC w/ Auto Diffon 0 Erythrocyte distribution width (RBC) [Ratio] 14.4 % Normal 11.5-15.0 [facility] Comment on above: Performed By: #### 1 [id number], 18959115, 9977458 #### [facility] (DEFAULT) [address] [place] [address] 40526 Hematocrit (Bld) [Volume fraction] 39.2 % Normal 33.7-40.4 [facility] Comment on above: Performed By: #### 1 981654438, 86136262, 3155021 #### [facility] (DEFAULT) [address] [place] [address] Hemoglobin (Bld) [Mass/Vol] 12.8 g/dL Normal 11.3-15.9 [facility] Comment on above: Performed By: #### 1 189024806, 41471339, 4647806 #### [facility] (DEFAULT) [address] [place] [address] 69794 Man Diff? Auto Normal [facility] Comment on above: Performed By: #### 1 [id number], 06148970, 1825833 #### [facility] (DEFAULT) [address] [place] [address] 02429 MCH (RBC) [Entitic mass] 33 pg Normal 24-34 [facility] Comment on above: Performed By: #### 1 [id number], 84276138, 6190252 #### [facility] (DEFAULT) [address] [place] [address] 06830 MCHC (RBC) [Mass/Vol] 33 g/dL Normal 26-37 [facility] Comment on above: Performed By: #### 1 [id number], 16605185, 5542433 #### [facility] (DEFAULT) [address] [place] [address] 67397 MCV (RBC) [Entitic vol] 102 fL High 81-100 [facility] Comment on above: Performed By: #### 1 [id number], 80110986, 7374778 #### [facility] (DEFAULT) [address] [place] [address] 77876 Platelet mean volume (Bld) [Entitic vol] 9.4 fL Normal 6.3-10.2 [facility] Comment on above: Performed By: #### 1 [id number], 25594282, 0726905 #### [facility] (DEFAULT) [address] [place] [address] 74147 Platelets (Bld) [#/Vol] 272 x10 Normal 138-427 [facility] Comment on above: Performed By: #### 1 [id number], 91389280, 4334628 #### [facility] (DEFAULT) [address] [place] [address] 96389 RBC (Bld) [#/Vol] 3.85 x10 Normal 3.70-5.30 [facility] Comment on above: Performed By: #### 1 [id number], 82989181, 8843635 #### [facility] (DEFAULT) [address] [place] [address] WBC (Bld) [#/Vol] 11.7 x10 High 3.5-10.5 [facility] Comment on above: Performed By: #### 1 [id number], 45939283, 6071459 #### [facility] (DEFAULT) [address] [place] [address] 67303 Extra [place] 09-25-2019 Tube Collected Yes [facility] Comment on above: Performed By: #### 7 [id number], 08014121, [id number] #### [facility] (DEFAULT) [address] [place] [address] H&Hon 09-25-2019 Hematocrit (Bld) [Volume fraction] 39.9 % Normal 33.7-40.4 [facility] Comment on above: Performed By: #### 7 759566, 16030470, [id number] #### [facility] (DEFAULT) [address] [place] [address] Hemoglobin (Bld) [Mass/Vol] 12.7 g/dL Normal 11.3-15.9 [facility] Comment on above: Performed By: #### 7 614247, 19716105, [id number] #### [facility] (DEFAULT) [address] [place] [address] History and Physicalon 09-24 History and Physical [id number] Normal [facility] MAGR Intraoperative Recordon 09-25-2019 MAGR Intraoperative Record MAGR Intra-Op Record Summary Primary Physician: Mi Licea DO Finalized Date/Time: 09/25/19 15:04:11 Pt. Name: DELICIA HSU D.O.B./Sex: 1935 FEMALE Med Rec #: [id number] Physician: Mi Licea DO Financial #: [id number] Pt. Type: I Room/Bed: [facility] [place]/ Admit/Disch: 09/25/19 06:52:00 - Institution: Case Times [...] Role Performed Surgeon - Primary Anesthesiologist of Cardiology Tech Record Time In 09/25/19 09:37:00 09/25/19 09:37:00 09/25/19 09:37:00 Time Out 09/25/19 11:50:00 09/25/19 11:50:00 09/25/19 11:50:00 Procedure Arthroplasty Total Arthroplasty Total Arthroplasty Total Hip(Left) Hip(Left) Hip(Left) Last Modified By: Marj Sullivan RN, Stephanie RN Sauer, Stephanie RN 09/25/19 12:54:58 09/25/19 12:54:58 09/25/19 12:54:58 Entry 4 Entry 5 Entry 6 Case Attendee Montrell MCKEON, Shantal Moreira Leigh-Ann CST Role Performed Scrub Personnel Exercise Planner Exercise Planner Time In 09/25/19 09:37:00 09/25/19 09:37:00 09/25/19 [...] Implant Implant Implant Description DEPUY ACETABULAR LINER DEPResponsive Sports CANCELLOUS BONE DEPUY CANCELLOUS BONE SCREW SCREW Implant Information Implant/Explant 09/25/19 10:50:00 09/25/19 10:50:00 09/25/19 10:50:00 Date/Time Implanted/Explanted Mi Licea James Huddleston, James By: Eduardo Vallejo DO Size 32MM 50MM 6.5 X 30MM 6.5 X 15MM Manager Case DEPUY DEPUY DEPUY Catalog # Lot Number [id number] Expiration Date 05/08/24 03/10/29 01/07/29 Serial Number [id number] REF 1217-30-500 REF 1217-15-500 Device Identifier Human Readable EDDA Machine Readable EDDA MR Class Implant Usage Data Site Hip L Hip L Hip L Quantity 1 1 1 Reason for Explant Reason Not Retained Explant Disposition Rotating Equipment Engineer Sterility External Indicator Result Internal Indicator Results Outcome Met (O.30) Yes Yes Yes Last Modified By: Marj Sullivan RN, Stephanie RN Sauer, Stephanie RN 09/25/19 13:14:13 09/25/19 13:11:26 09/25/19 13:11:26 Entry 4 Entry 5 Entry 6 Procedure Arthroplasty Total Arthroplasty Total Arthroplasty Total Hip(Left) Hip(Left) Hip(Left) Implant Action Implant Implant Implant Description DEPResponsive Sports CANCELLOUS BONE DEPUY ACETABULAR SHELL DEPUY APEX HOLE SCREW ELIMINATOR Implant Information Implant/Explant 09/25/19 10:50:00 09/25/19 10:50:00 09/25/19 10:50:00 Date/Time Implanted/Explanted Mi Licea James Huddleston, James By: Eduardo Vallejo DO Size 6.5 X 15MM 50MM PS Manager Case [employer] Catalog # Lot Number [id number] Expiration Date 11/07/28 04/07/29 04/07/29 Serial Number REF 1217-15-500 REF [id number] REF 1246-03-000 Device Identifier Human Readable EDDA Machine Readable EDDA MR Class Implant Usage Data Site Hip L Hip L Hip L Quantity 1 1 1 Reason for Explant Reason Not Retained Explant Disposition Rotating Equipment Engineer Sterility External Indicator Result Internal Indicator Results [...] Vallejo DO Size 135 SHORT NECK COLLAR /14 TAPER SIZE 11 Manager Case DEPDivided Catalog # Lot Number [id number] Expiration Date 02/08/24 02/08/24 Serial Number REF [id number] REF 1365-22-000 Device Identifier Human Readable EDDA Machine Readable EDDA MR Class Implant Usage Data Site Hip L Hip L Quantity 1 1 Reason for Explant Reason Not Retained Explant Disposition Rotating Equipment Engineer Sterility External Indicator Result Internal Indicator Results Outcome Met (O.30) Yes Yes Last Modified By: Marj Sullivan RN, Stephanie RN 09/25/19 13:11:26 09/25/19 13:11:27 [...] 09/25/19 15:04 MARSHA Modify Pick List [facility] Rec[facility] 0 [facility]U Record [facility] Record Heriberto kaur Primary Physician: Mi Licea DO Finalized Date/Time: 09/25/19 12:53:39 Pt. Name: DELICIA HSU /Sex: 1935 FEMALE Med Rec #: [id number] Physician: Mi Licea DO Financial #: [id number] Pt. Type: I Room/Bed: 221/1 Admit/Disch: 09/25/19 06:52:00 - Institution: PACU Case Times MAGR Entry 1 In PACU I 09/25/19 11:50:00 Discharge from PACU 09/25/19 12:40:00 I Last Modified By: Dionne Yun RN 09/25/19 12:53:35 Finalized By: Dionne Yun RN Document Signatures Signed By: Dionne Yun RN 09/25/19 12:53 [facility] MAGR Preoperative Recordon 0 09-25-2019 MAGR Preoperative Record MAGR Pre-Op Record Summary Primary Physician: Mi Licea DO Finalized Date/Time: 09/25/19 11:58:52 Pt. Name: DELICIA HSU /Sex: 1935 FEMALE Med Rec #: [id number] Physician: Mi Licea DO Financial #: [id number] Pt. Type: I Room/Bed: 221/1 Admit/Disch: 09/25/19 06:52:00 - Institution: Pre-Op Case [...] consent correct. General Comments: Pt arrives to [facility] ambulatory. Pt denies any pain, Cp, sob, cough or flu like symptoms. Pt denies pacemaker/defibillator, pt has sleep apnea but does not wear cpap. Finalized By: Dionne Yun RN Document Signatures Signed By: Dionne Yun RN 09/25/19 11:58 [facility] Nutrition Noteon 09-25-2019 Nutrition Note Pt admitted for sche duled Lt total hip sx; placed on a Regular diet as tolerated w/ post op supplements BID along w/ usual vitamin/mineral supplementation. Nutritional supplements adjusted to what's available in house. Per transportation mechanic assessment, Pt reports wt loss of 2-13lb, [...] associates to offer prunes/prune alfred q am. [facility] Operative Report - Surgeon/P hung 09-25-2019 Operative Report - Surgeon/Physician Preoperative diagnosis: Primary osteoarthritis left hip with previous internal fixation for hip fracture Postoperative diagnosis: Same Procedure: Removal of deep hardware from left hip Left total hip arthroplasty Surgeon: Libby Licea DCristian Anesthesia: Spinal Indications for surgery: Ongoing pain [...] on: 10/18/2019 21:39 EDT] Mi Licea DO [facility] Pharmacy Noteon 09-25-2019 Pharmacy Note I [...] [Verified on: 09/25/2019 13:26 EDT] Virgie Santos [facility] Pharmacy Note I have personally re [...] [Verified on: 09/25/2019 13:04 EDT] Marj Mccall [facility] Progress Note - Nurseon 08- TSH Qn Pt states that she i s having pain in her lt hip and neck #8 on the scale. Pt also complains of freezing . Temp 97.8. Pt given a warm blanket and medicated with Morphine 2mg IVP as ordered. [Electronically Signed on: 09/25/2019 19:48 EDT] Indy Vidal RN [Verified on: 09/25/2019 19:48 EDT] Indy Vidal RN [facility] Progress Note - Nurse Complaining of [...] on: 09/25/2019 19:51 EDT] Twila Cruz RN [facility] UA [id number] 09-25-2019 RBC (U) [#/Vol] 0-2 [facility] Comment on above: Order Comment: Urina lysis Microscopic order added on by Discern Expert Rules system. Performed By: #### 7 [id number], [id number], [id number] #### [facility] (DEFAULT) [address] [place] [address] 60642 UA Bacteria 4+ [facility] Comment on above: Order Comment: Urina lysis Microscopic order added on by [employer] Expert Rules system. Performed By: #### 7 [id number], [id number], [id number] #### [facility] (DEFAULT) [address] [place] [address] 69721 UA Squam Epi Rare [facility] Comment on above: Order Comment: Urina lysis Microscopic order added on by [employer] Expert Rules system. Performed By: #### 7 [id number], [id number], [id number] #### [facility] (DEFAULT) [address] [place] [address] 03318 UA WBC 0-2 [facility] Comment on above: Order Comment: Urina lysis Microscopic order added on by [employer] Expert Rules system. Performed By: #### 7 [id number], [id number], [id number] #### [facility] (DEFAULT) [address] [place] [address] 43551 UA w Culture if Ind Standard on 09-25-2019 Breakpoint UA [facility] Comment on above: Order Comment: sim insert Performed By: #### 7 [id number], [id number], [id number] #### [facility] (DEFAULT) [address] [place] [address] 27184 Color (U) Yellow [facility] Comment on above: Order Comment: sim insert Performed By: #### 7 [id number], [id number], [id number] #### [facility] (DEFAULT) [address] [place] [address] 91591 Culture? Indicated [facility] Comment on above: Order Comment: sim insert Performed By: #### 7 [id number], [id number], [id number] #### [facility] (DEFAULT) [address] [place] [address] 77796 Glucose (U) [Mass/Vol] Negative [facility] Comment on above: Order Comment: sim insert Performed By: #### 7 [id number], [id number], [id number] #### [facility] (DEFAULT) [address] [place] [address] 24742 Ketones Ql (U) Negative Normal [facility] Comment on above: Order Comment: sim insert Performed By: #### 7 685556, [id number], [id number] #### [facility] (DEFAULT) [address] [place] [address] 72807 Micro? Indicated [facility] Comment on above: Order Comment: sim insert Performed By: #### 7 [id number], [id number], [id number] #### [facility] (DEFAULT) [address] [place] [address] 33403 UA Bilirubin Negative Normal [facility] Comment on above: Order Comment: sim insert Performed By: #### 7 389709, [id number], [id number] #### [facility] (DEFAULT) [address] [place] [address] 90693 UA Blood Negative Normal NEGATIVE [facility] Comment on above: Order Comment: sim insert Performed By: #### 7 [id number], [id number], [id number] #### [facility] (DEFAULT) [address] [place] [address] 93711 UA Clarity CLEAR Normal CLEAR [facility] Comment on above: Order Comment: sim insert Performed By: #### 7 [id number], [id number], [id number] #### [facility] (DEFAULT) [address] [place] [address] 75704 UA Leuk Est SMALL Abnormal NEGATIVE [facility] Comment on above: Order Comment: sim insert Performed By: #### 7 [id number], [id number], [id number] #### [facility] (DEFAULT) [address] [place] [address] 95360 UA Nitrite Positive Abnormal NEGATIVE [facility] Comment on above: Order Comment: sim insert Performed By: #### 7 556005, [id number], [id number] #### [facility] (DEFAULT) [address] [place] [address] 08043 UA pH 7.0 Normal 5-8 [facility] Comment on above: Order Comment: sim insert Performed By: #### 7 [id number], [id number], [id number] #### [facility] (DEFAULT) [address] [place] [address] 86526 UA Protein Negative Normal NEGATIVE [facility] Comment on above: Order Comment: sim insert Performed By: #### 7 [id number], [id number], [id number] #### [facility] (DEFAULT) [address] [place] [address] 14624 UA Spec Grav 1.020 Normal 1.001-1.03 5 [facility] Comment on above: Order Comment: sim insert Performed By: #### 7 [id number], [id number], [id number] #### [facility] (DEFAULT) [address] [place] [address] 91520 UA Urobilinogen 0.2 mg/dL Normal 0.2-1.0 [facility] Comment on above: Order Comment: sim insert Performed By: #### 7 [id number], [id number], [id number] #### [facility] (DEFAULT) [address] [place] [address] 49290 Urine Source Clean Catch Normal [facility] Comment on above: Order Comment: sim insert Performed By: #### 7 [id number], [id number], [id number] #### [facility] (DEFAULT) [address] [place] [address] 77753 XR Hip Complete Lefton 09-24 XR Hip [...] MD 09/25/19 3:55 pm Technologist: OCHOA NAZARIO [facility] Patient Handouton 09-24-2019 Patient Handout [facility] Progress Note - Nurseon 09-08 Progress Note - Nurse Spoke with pt regarding arrival time of 0700 and NPO status. Verbalized understanding. [Electronically Signed on: 09/22/2019 09:47 EDT] Kimberley Holden RN [Verified on: 09/22/2019 09:47 EDT] Kimberley Holden RN [facility] SARS-CoV-2 (COVID-19) PCRon 09-22-2019 COVID-19 PCR Not Detected Normal Not Detected [facility] Comment on above: Performed By: #### 7 [id number], [id number], [id number] #### [facility] (DEFAULT) [address] [place] [address] Employed in healthcare? Unknown [facility] Comment on above: Performed By: #### 7 063337, [id number], [id number] #### [facility] (DEFAULT) [address] [place] [address] Group care resident? Unknown [facility] Comment on above: Performed By: #### 7 796605, [id number], [id number] #### [facility] (DEFAULT) [address] [place] [address] Hospitalized due to COVID-19? Unknown [facility] Comment on above: Performed By: #### 7 468459, [id number], [id number] #### [facility] (DEFAULT) [address] [place] [address] In ICU? Unknown [facility] Comment on above: Performed By: #### 7 077130, [id number], [id number] #### [facility] (DEFAULT) [address] [place] [address] status? Unknown [facility] Comment on above: Performed By: #### 7 [id number], [id number], [id number] #### [facility] (DEFAULT) [address] [place] [address] Symptomatic as defined by CDC? Unknown [facility] Comment on above: Performed By: #### 7 148121, [id number], [id number] #### [facility] (DEFAULT) [address] [place] [address] Coding Summaryon 09-13-2019 Coding Summary CODING DATE: 020 [facility] STATUS: Home PAYOR: Medicare APC DESCRIPTION 5733 Level 3 Minor Procedures ADMIT DX: REASON FOR VISIT DX: Z01.818 Encounter for other preprocedural examination I10 Essential (primary) hypertension I25.10 Atherosclerotic heart disease of [place] coronary artery without angina pectoris FINAL DX: PRINCIPAL: Z01.818 Encounter for other preprocedural examination SECONDARY: I10 Essential (primary) hypertension I25.10 Atherosclerotic heart disease of [place] coronary artery without angina pectoris K21.9 Gastro-esophageal [...] Marisela Lawrence Date Saved: 09/13/2019 09:18 am [facility] Coding Summaryon 09-06-2019 Coding Summary CODING DATE: 020 [facility] STATUS: Home PAYOR: Medicare APC DESCRIPTION 5733 Level 3 Minor Procedures ADMIT DX: REASON FOR VISIT DX: Z01.818 Encounter for other preprocedural examination I10 Essential (primary) hypertension I25.10 Atherosclerotic heart disease of [place] coronary artery without angina pectoris FINAL DX: PRINCIPAL: Z01.818 Encounter for other preprocedural examination SECONDARY: I10 Essential (primary) hypertension I25.10 Atherosclerotic heart disease of [place] coronary artery without angina pectoris K21.9 Gastro-esophageal reflux disease without esophagitis PYMT PROC APC STAT DESCRIPTION DOCTOR NAME DATE NOTE: The code number assigned matches the documented diagnosis and / or procedure in the patient's chart. However, the narrative phrase printed from the coding software may appear abbreviated, or result in slightly different terminology. Coded By: Marisela Lawrence Date Saved: 09/06/2019 09:20 am [facility] Progress Note - Nurseon - Progress Note - Nurse chart reviewed per Dr Akbar anesthesiologist, and cleared for surgery on 09/25/2019 [Electronically Signed on: 09/04/2019 14:30 EDT] Nimco Albarado RN [Verified on: 09/04/2019 14:30 EDT] Nimco Albarado RN [facility] Progress Note - Nurse Xin at Dr Licea notified that pt has positive urine culture. [Electronically Signed on: 09/04/2019 13:37 EDT] Dionne Yun RN [Verified on: 09/04/2019 13:37 EDT] Dionne Yun RN [facility] Provider Orderson 09-04-2019 Provider Orders [id number] [facility] C Urineon 09-03-2019 C Urine Urine [...] <=4 Verified Tri/Sulf S <=2/38 Verified Normal [facility] Comment on above: Performed By: #### 1 [id number], [id number], [id number] #### [facility] (DEFAULT) [address] [place] [address] C MRSA Screenon 09-02-2019 C MRSA Screen Negative Normal [facility] Comment on above: Performed By: #### 1 [id number] #### [facility] (DEFAULT) [address] [place] [address] .Auto Diff 1on 09-01-2019 Auto [place] % 10 % Normal 1-12 [facility] Comment on above: Performed By: #### 7 [id number], [id number], [id number] #### [facility] (DEFAULT) [address] [place] [address] Baso Abs# 0.0 x10 Normal 0.0-0.2 [facility] Comment on above: Performed By: #### 7 229618, [id number], [id number] #### [facility] (DEFAULT) [address] [place] [address] Basophils/100 WBC (Bld) 0.3 % Normal 0.2-2.0 [facility] Comment on above: Performed By: #### 7 951236, [id number], [id number] #### [facility] (DEFAULT) [address] [place] [address] 79471 Eos Abs# 0.1 x10 Normal 0.0-0.4 [facility] Comment on above: Performed By: #### 7 499975, [id number], [id number] #### [facility] (DEFAULT) [address] [place] [address] 53452 Eosinophils/100 WBC (Bld) 0.9 % Normal 0.9-4.0 [facility] Comment on above: Performed By: #### 7 979562, [id number], [id number] #### [facility] (DEFAULT) [address] [place] [address] 39960 Lymphocytes (Bld) [#/Vol] 1.0 x10 Low 1.3-2.9 [facility] Comment on above: Performed By: #### 7 566414, [id number], [id number] #### [facility] (DEFAULT) [address] [place] [address] 18977 Lymphocytes/100 WBC (Bld) 10 % Low 14-48 [facility] Comment on above: Performed By: #### 7 113057, [id number], [id number] #### [facility] (DEFAULT) [address] [place] [address] 02459 [place] Abs# 1.0 x10 High 0.0-0.8 [facility] Comment on above: Performed By: #### 7 593615, [id number], [id number] #### [facility] (DEFAULT) [address] [place] [address] 92946 Neut Abs# 8.0 x10 Normal 1.5-9.2 [facility] Comment on above: Performed By: #### 7 420472, [id number], [id number] #### [facility] (DEFAULT) [address] [place] [address] 76707 Neutrophils/100 WBC (Bld) 79 % Normal 44-88 [facility] Comment on above: Performed By: #### 7 319255, [id number], [id number] #### [facility] (DEFAULT) [address] [place] [address] 72148 BMP Standardon 07-24-2020 eGFR Non AA 44 mL/min/1.73m2 [facility] Comment on above: Performed By: #### 7 587103, [id number], [id number] #### [facility] (DEFAULT) [address] [place] [address] 20693 eGFR AA 54 mL/min/1.73m2 [facility] Comment on above: Result Comment: Aviation Neuropsychologist kody Kidney disease could be indicated at eGFRs of less than 60 ml/min/1.73m2. Kidney Failure is indicated at less than 15 ml/min/1.73m2 Performed By: #### 7 313519, [id number], [id number] #### [facility] (DEFAULT) [address] [place] [address] 02193 Anion gap [Moles/Vol] 15.0 mmol/L Normal 5.0-19.0 [facility] Comment on above: Performed By: #### 7 551963, [id number], [id number] #### [facility] (DEFAULT) [address] [place] [address] 42750 Calcium [Mass/Vol] 9.2 mg/dL Normal 8.9-10.3 [facility] Comment on above: Performed By: #### 7 515419, [id number], [id number] #### [facility] (DEFAULT) [address] [place] [address] 92691 Chloride [Moles/Vol] 101 mmol/L Normal 101-111 [facility] Comment on above: Performed By: #### 7 191822, [id number], [id number] #### [facility] (DEFAULT) [address] [place] [address] 88221 CO2 [Moles/Vol] 25 mmol/L Normal 21-32 [facility] Comment on above: Performed By: #### 7 912398, [id number], [id number] #### [facility] (DEFAULT) [address] [place] [address] 67357 Creatinine [Mass/Vol] 1.17 mg/dL Normal 0.60-1.30 [facility] Comment on above: Performed By: #### 7 309482, [id number], [id number] #### [facility] (DEFAULT) [address] [place] [address] 72795 Glucose [Mass/Vol] 94.0 mg/dL Normal 74.0-118.0 [facility] Comment on above: Performed By: #### 7 438603, [id number], [id number] #### [facility] (DEFAULT) [address] [place] [address] 28304 Osmolality [Osmolality] 276 mOsm/L [facility] Comment on above: Performed By: #### 7 545220, [id number], [id number] #### [facility] (DEFAULT) [address] [place] [address] 39932 Potassium [Moles/Vol] 4.0 mmol/L Normal 3.6-5.1 [facility] Comment on above: Performed By: #### 7 391868, [id number], [id number] #### [facility] (DEFAULT) [address] [place] [address] 19226 Sodium [Moles/Vol] 137.0 mmol/L Normal 136.0-144 . 0 [facility] Comment on above: Performed By: #### 7 940993, [id number], [id number] #### [facility] (DEFAULT) [address] [place] [address] 77669 Urea nitrogen [Mass/Vol] 20 mg/dL Normal 8-26 [facility] Comment on above: Performed By: #### 7 117520, [id number], [id number] #### [facility] (DEFAULT) [address] [place] [address] 67949 Urea nitrogen/Creatinine [Mass ratio] 17.0 mg/mg High 4.6-16.2 [facility] Comment on above: Performed By: #### 7 816449, [id number], [id number] #### [facility] (DEFAULT) [address] [place] [address] 67363 CBC w/ Auto Diffon 0 Erythrocyte distribution width (RBC) [Ratio] 13.9 % Normal 11.5-15.0 [facility] Comment on above: Performed By: #### 7 145067, [id number], [id number] #### [facility] (DEFAULT) [address] [place] [address] Hematocrit (Bld) [Volume fraction] 38.5 % Normal 33.7-40.4 [facility] Comment on above: Performed By: #### 7 384102, [id number], [id number] #### [facility] (DEFAULT) [address] [place] [address] Hemoglobin (Bld) [Mass/Vol] 12.6 g/dL Normal 11.3-15.9 [facility] Comment on above: Performed By: #### 7 909251, 52772063, [id number] #### [facility] (DEFAULT) [address] [place] [address] Man Diff? Auto Normal [facility] Comment on above: Performed By: #### 7 449625, [id number], [id number] #### [facility] (DEFAULT) [address] [place] [address] MCH (RBC) [Entitic mass] 33 pg Normal 24-34 [facility] Comment on above: Performed By: #### 7 384920, [id number], [id number] #### [facility] (DEFAULT) [address] [place] [address] MCHC (RBC) [Mass/Vol] 33 g/dL Normal 26-37 [facility] Comment on above: Performed By: #### 7 605503, [id number], [id number] #### [facility] (DEFAULT) [address] [place] [address] MCV (RBC) [Entitic vol] 101 fL High 81-100 [facility] Comment on above: Performed By: #### 7 [id number], [id number], [id number] #### [facility] (DEFAULT) [address] [place] [address] Platelet mean volume (Bld) [Entitic vol] 9.5 fL Normal 6.3-10.2 [facility] Comment on above: Performed By: #### 7 [id number], [id number], [id number] #### [facility] (DEFAULT) [address] [place] [address] 12961 Platelets (Bld) [#/Vol] 292 x10 Normal 138-427 [facility] Comment on above: Performed By: #### 7 [id number], [id number], [id number] #### [facility] (DEFAULT) [address] [place] [address] 67653 RBC (Bld) [#/Vol] 3.82 x10 Normal 3.70-5.30 [facility] Comment on above: Performed By: #### 7 [id number], [id number], [id number] #### [facility] (DEFAULT) [address] [place] [address] 66232 WBC (Bld) [#/Vol] 10.1 x10 Normal 3.5-10.5 [facility] Comment on above: Performed By: #### 7 [id number], [id number], [id number] #### [facility] (DEFAULT) [address] [place] [address] UA [id number] 09-01-2019 RBC (U) [#/Vol] None Seen [facility] Comment on above: Order Comment: Urina lysis Microscopic order added on by [employer] Rules system. Performed By: #### 1 [id number], [id number], [id number] #### [facility] (DEFAULT) [address] [place] [address] UA Amorph. 1+ Normal [facility] Comment on above: Order Comment: Urina lysis Microscopic order added on by [employer] Rules system. Performed By: #### 1 [id number], [id number], [id number] #### [facility] (DEFAULT) [address] [place] [address] 89460 UA Bacteria 4+ Normal [facility] Comment on above: Order Comment: Urina lysis Microscopic order added on by [employer] Rules system. Performed By: #### 1 [id number], [id number], [id number] #### [facility] (DEFAULT) [address] [place] [address] 970[address] UA Squam Epi Moderate Normal [facility] Comment on above: Order Comment: Urina lysis Microscopic order added on by [employer] Rules system. Performed By: #### 1 [id number], [id number], [id number] #### [facility] (DEFAULT) [address] [place] [address] 19842 UA WBC 15-20 Normal [facility] Comment on above: Order Comment: Urina lysis Microscopic order added on by [employer] Rules system. Performed By: #### 1 [id number], [id number], [id number] #### [facility] (DEFAULT) [address] [place] [address] UA w Culture if Ind Standard on 09-01-2019 Breakpoint UA [facility] Comment on above: Performed By: #### 1 [id number], [id number], [id number] #### [facility] (DEFAULT) [address] [place] [address] Color (U) Yellow Normal [facility] Comment on above: Performed By: #### 1 [id number], [id number], [id number] #### [facility] (DEFAULT) [address] [place] [address] Culture? Yes Normal [facility] Comment on above: Performed By: #### 1 [id number], [id number], [id number] #### [facility] (DEFAULT) [address] [place] [address] Glucose (U) [Mass/Vol] Negative [facility] Comment on above: Performed By: #### 1 [id number], [id number], [id number] #### [facility] (DEFAULT) [address] [place] [address] 22356 Ketones Ql (U) Negative [facility] Comment on above: Performed By: #### 1 [id number], [id number], [id number] #### [facility] (DEFAULT) [address] [place] [address] 05630 Micro? Indicated [facility] Comment on above: Performed By: #### 1 [id number], [id number], [id number] #### [facility] (DEFAULT) [address] [place] [address] 23514 UA Bilirubin Negative Normal [facility] Comment on above: Performed By: #### 1 [id number], [id number], [id number] #### [facility] (DEFAULT) [address] [place] [address] UA Blood TRACE Abnormal NEGATIVE [facility] Comment on above: Performed By: #### 1 [id number], [id number], [id number] #### [facility] (DEFAULT) [address] [place] [address] UA Clarity CLEAR Normal CLEAR [facility] Comment on above: Performed By: #### 1 [id number], [id number], [id number] #### [facility] (DEFAULT) [address] [place] [address] UA Leuk Est MODERATE Abnormal NEGATIVE [facility] Comment on above: Performed By: #### 1 [id number], [id number], [id number] #### [facility] (DEFAULT) [address] [place] [address] UA Nitrite Positive Abnormal NEGATIVE [facility] Comment on above: Performed By: #### 1 [id number], [id number], [id number] #### [facility] (DEFAULT) [address] [place] [address] UA pH 5.5 Normal 5-8 [facility] Comment on above: Performed By: #### 1 [id number], [id number], [id number] #### [facility] (DEFAULT) [address] [place] [address] UA Protein Negative Normal NEGATIVE [facility] Comment on above: Performed By: #### 1 [id number], [id number], [id number] #### [facility] (DEFAULT) [address] [place] [address] 92506 UA Spec Grav 1.025 Normal 1.001-1.[address] [place] [address] Comment on above: Performed By: #### 1 [id number], [id number], [id number] #### [facility] (DEFAULT) [address] [place] [address] 44541 UA Urobilinogen 0.2 mg/dL Normal 0.2-1.0 [facility] Comment on above: Performed By: #### 1 [id number], [id number], [id number] #### [facility] (DEFAULT) [address] [place] [address] Urine Source Clean Catch Normal [facility] Comment on above: Performed By: #### 1 [id number], [id number], [id number] #### [facility] (DEFAULT) [address] [place] [address] 63599 JOINT PAIN INJECTIONon 09-06 JOINT PAIN INJECTION [facility] Department of Radiology [address] [place] [address] Patient Name: DELICIA HSU : 1935 Sex: F Age: Race: White Pt. Location: Patient Status: D Ordered Date: 08/08/2018 3:50:00 PM Completed Date: 09/06/2018 03:43 PM Requesting Provider: HERMELINDO HILLMAN Attending Provider: HERMELINDO HILLMAN Report Copy To: GYPSY MCMAHON Signs & Symptoms: M16.12 Unilateral primary osteoarthritis, left hip I10 History: Trimble Comments: , Dr. Ochoa , Body Part: [...] guidance. Electronically signed by:Christy Ochoa. Transcribed by: [email or web address], User Resident: Electronically Signed by: CHRISTY OCHOA @ 09/09/2018 05:57 PM Normal [facility] Comment on above: Order Comment: , Dr. Ochoa , Body Part: Hip , Side: LEFT , Dr. Ochoa , Body Part: Hip , Side: LEFT , , , Ordering Provider - HERMELINDO HILLMAN MD , CT 3D LOWER EXTREMITY WO CON TRAST LEFTon 08-02-2018 CT 3D LOWER EXTREMITY WO CONTRAST LEFT [facility] Department of Radiology [address] [place] [id number] Patient Name: DELICIA HSU : 1935 Sex: F Age: Race: White Pt. Location: 84 Patient Status: D Ordered Date: 07/22/2018 9:55:00 AM Completed Date: 08/02/2018 09:41 AM Requesting Provider: MIRTHA VELÁSQUEZ Attending Provider: MIRTHA VELÁSQUEZ Report Copy To: GYPSY MCMAHON Signs & Symptoms: S72.045D Nondisp fx of base of nk of l femr, 7thD I10 History: [place], PHONE:[phone] OR [phone],*NEEDS ORTHO F/U APPT. MEDICARE NO PC REQ [...] arthritis. Electronically signed by:Coy Jerome. Transcribed by: [email or web address], User Resident: Electronically Signed by: COY JEROME @ 08/08/2018 02:20 PM Normal [facility] Comment on above: Order Comment: , Jessie perkins left hip healing HIP LEFT 1 OR 2 VWS WITH PEL VISon 03-18-2018 HIP LEFT 1 OR 2 VWS WITH PELVIS [facility] Department of Radiology [address] [place] [id number] Patient Name: DELICIA HSU : 1935 Sex: F Age: Race: White Pt. Location: Patient Status: Ordered Date: 03/18/2018 1:20:00 PM Completed Date: 03/18/2018 01:54 PM Requesting Provider: MIRTHA VELÁSQUEZ Attending Provider: Report Copy To: Signs & Symptoms: S72.045D Nondisp fx of base of nk of l femr, 7thD I10 History: [place] Comments: , , , Ordering Provider - [...] FOR THE RADIOLOGIST: , , , Ordering Rebeka VELÁSQUEZ PA-C , PROTOCOL: AP(PA) and Lateral views were obtained. COMPARISON: January 10, 2018 FINDINGS: Soft tissues: No change Bones: No change Joints: No change IMPRESSION: Left femoral neck fracture with screw fixation superimposed upon senescent and degenerative skeleton similar to prior study Electronically signed by:Coy Jerome. Transcribed by: [email or web address], User Resident: Electronically Signed by: COY JEROME @ 03/18/2018 02:19 PM Normal [facility] Comment on above: Order Comment: , , = ========= , Ordering Rebeka TIJERINAC , HIP LEFT 1 OR 2 VWS WITH PEL VISon 01-10-2018 HIP LEFT 1 OR 2 VWS WITH PELVIS [facility] Department of Radiology [address] [place] [phone] Patient Name: DELICIA HSU : 1935 Sex: F Age: Race: White Pt. Location: 84 Patient Status: Ordered Date: 01/10/2018 1:10:00 PM Completed Date: 01/10/2018 01:10 PM Requesting Provider: MIRTHA VELÁSQUEZ Attending Provider: Report Copy To: Signs & Symptoms: S72.045D Nondisp fx of base of nk of l femr, 7thD I10 History: Faina Comments: , Views (X-RAY, HIP): Radiologic Protocol [...] arthritis. Electronically signed by:Manjit Whatley. Transcribed by: [email or web address], User Resident: Electronically Signed by: MANJIT WHATLEY @ 01/10/2018 04:38 PM Normal [facility] Comment on above: Order Comment: , Elanae ws (X-RAY, HIP): Radiologic Protocol , Views (X-RAY, HIP): Radiologic Protocol , , , Ordering Provider - MIRTHA VELÁSQUEZ PA-C , HIP LEFT 1 OR 2 VWS WITH PEL VISon 11-01-2017 HIP LEFT 1 OR 2 VWS WITH PELVIS [facility] Department of Radiology [address] [place] [id number] Patient Name: DELICIA HSU : 1935 Sex: F Age: Race: White Pt. Location: Patient Status: Ordered Date: 11/01/2017 3:00:00 PM Completed Date: 11/01/2017 03:00 PM Requesting Provider: MIRTHA VELÁSQUEZ Attending Provider: Report Copy To: Signs & Symptoms: S72.045D Nondisp fx of base of nk of l femr, 7thD I10 History: Faina Comments: , Views (X-RAY, HIP): Radiologic Protocol [...] Radiologic Protocol , , , Ordering Rebeka VELÁSQUEZ PA-C , PROTOCOL: AP(PA) and Lateral views were obtained. COMPARISON: September 21, 2017. FINDINGS: Neck fracture of proximal left femur internally fixated with multiple screws. No interval change in appearance since the prior study. Intact bony ring of pelvis on AP view. IMPRESSION: ORIF of left femoral neck fracture with limited healing, similar to prior study. Electronically signed by:Gerson Rodriguez. Transcribed by: [email or web address], User Resident: Electronically Signed by: GERSON RODRIGUEZ @ 11/01/2017 03:25 PM Normal [facility] Comment on above: Order Comment: , Carmella ws (X-RAY, HIP): Radiologic Protocol , Views (X-RAY, HIP): Radiologic Protocol , , , Ordering Rebeka TIJERINAC , HIP LEFT 1 OR 2 VWS WITH PEL VISon 09-21-2017 HIP LEFT 1 OR 2 VWS WITH PELVIS [facility] Department of Radiology [address] [place] [phone] Patient Name: DELICIA HSU : 1935 Sex: F Age: Race: White Pt. Location: Patient Status: Ordered Date: 09/21/2017 2:00:00 PM Completed Date: 09/21/2017 01:58 PM Requesting Provider: MIRTHA VELÁSQUEZ Attending Provider: Report Copy To: Signs & Symptoms: S72.045D Nondisp fx of base of nk of l femr, 7thD I10 History: Faina Comments: , , , Ordering Rebeka VELÁSQUEZ PA-C , Exam: HIP LEFT 1 OR 2 VWS WITH PELVIS HIP LEFT 1 OR 2 VWS WITH PELVIS 09/21/2017 1:58 PM EDT SIGNS AND SYMPTOMS: S72.045D Nondisp fx of base of nk of l femr, 7thD I10 TECHNOLOGIST COMMENTS: hx of left femur fx, surgery 06/04/17 QUESTION FOR THE RADIOLOGIST: , , , Ordering Rebeka VELÁSQUEZ PA-C , PROTOCOL: AP(PA) and Lateral views were obtained. COMPARISON: September 02, 2017 FINDINGS: Soft tissues: Vascular calcifications and saphenous vein clips Bones: Screw fixation of subcapital fracture with still limited healing Joints: Moderate bilateral hip arthritis IMPRESSION: Unchanged screw fixation of left hip fracture Electronically signed by:Coy Jerome. Transcribed by: [email or web address], User Resident: Electronically Signed by: COY JEROME @ 09/21/2017 03:27 PM Normal [facility] Comment on above: Order Comment: , , = ========= , Ordering Rebeka VELÁSQUEZ PA-C , Vital Signs Date Time Vital Sign Value Performing Clinician Facility 02-25-2023 10:15-0500 Body height 175.26 cm MD Jacinto Max Work Phone: [facility] 02-25-2023 10:15-0500 Body weight 59.1 kg MD Jacinto Max Work Phone: [facility] 02-25-2023 10:02-0500 Diastolic blood pressure 74 mm[Hg] MD Jacinto Max Work Phone: [facility] 02-25-2023 10:02-0500 Heart rate 67 /min MD Jacinto Max Work Phone: [facility] 02-25-2023 10:02-0500 Systolic blood pressure 157 mm[Hg] MD Jacinto Max Work Phone: [facility] 02-16-2023 13:30-0500 Body height 167.64 cm Gypsy Mcmahon Other [employer] Other 02-16-2023 13:30-0500 Body mass index (BMI) [Ratio] 20.66 kg/m2 Gypsy Mcmahon Other [employer] [facility] Other 02-16-2023 13:30-0500 Body weight 58.06 kg Gypsy Mcmahon Other [employer] Other 02-16-2023 13:30-0500 Diastolic blood pressure 68 mm[Hg] Gypsy Mcmahon Other [employer] Other 02-16-2023 13:30-0500 SaO2% (BldA) [Mass fraction] 96 % Gypsy Mcmahon Other [employer] Other 02-16-2023 13:30-0500 Systolic blood pressure 140 mm[Hg] Gypsy Mcmahon Other [employer] Other 01-29-2023 11:26-0500 Heart rate 75 /min MALATHIALMAZ VIEIRA [facility] 01-29-2023 11:26-0500 SaO2% (BldA) [Mass fraction] 95 % MALATHI DEB [facility] 01-29-2023 11:26-0500 Respiratory rate 16 /min MALATHI DEB [facility] 01-29-2023 11:25-0500 Diastolic blood pressure 83 mm[Hg] MALATHI DEB [facility] 01-29-2023 11:25-0500 Mean blood pressure 108 mm[Hg] MALATHI DEB [facility] 01-29-2023 11:25-0500 Systolic blood pressure 158 mm[Hg] MALATHI DEB [facility] 01-29-2023 11:25-0500 Body temperature 98.06 [degF] MALATHI DEB [facility] 01-29-2023 10:54-0500 Heart rate 74 /min MALATHI DEB [facility] 01-29-2023 10:54-0500 SaO2% (BldA) [Mass fraction] 97 % MALATHI DEB [facility] 01-29-2023 10:54-0500 Respiratory rate 16 /min MALATHI DEB [facility] 01-29-2023 10:53-0500 Body temperature 97.52 [degF] MALATHI DEB [facility] 01-29-2023 10:53-0500 Diastolic blood pressure 84 mm[Hg] MALATHI DEB [facility] 01-29-2023 10:53-0500 Mean blood pressure 104 mm[Hg] MALATHI DEB [facility] 01-29-2023 10:53-0500 Systolic blood pressure 146 mm[Hg] MALATHI DEB [facility] 01-12-2023 13:30-0500 Body height 167.64 cm Hunter Manny Other [employer] Other 01-12-2023 13:30-0500 Body mass index (BMI) [Ratio] 22 kg/m2 Hunter Manny Other [employer] Other 01-12-2023 13:30-0500 Body weight 61.83 kg Hunter Manny Other [employer] Other 01-12-2023 13:30-0500 Diastolic blood pressure 60 mm[Hg] Hunter Manny Other [employer] Other 01-12-2023 13:30-0500 Systolic blood pressure 137 mm[Hg] Hunter Manny Other [employer] Other 01-05-2023 11:30-0500 Body height 167.64 cm Gypsy Mcmahon Other [employer] Other 01-05-2023 11:30-0500 Body mass index (BMI) [Ratio] 21.63 kg/m2 Gypsy Mcmahon Other [employer] Other 01-05-2023 11:30-0500 Body weight 60.78 kg Gypsy Mcmahon Other [employer] Other 01-05-2023 11:30-0500 Diastolic blood pressure 72 mm[Hg] Gypsy Mcmahon Other [employer] Other 01-05-2023 11:30-0500 Systolic blood pressure 162 mm[Hg] Gypsy Mcmahon Other [employer] Other 12-28-2022 13:30-0500 Body height 167.64 cm Malathi Swensonjareth Other [employer] Other 12-28-2022 13:30-0500 Body mass index (BMI) [Ratio] 19.98 kg/m2 Malathi Hoodinez Other [employer] Other 12-28-2022 13:30-0500 Body weight 56.16 kg Malathi Hoodinez Other [employer] Other 12-28-2022 13:30-0500 Diastolic blood pressure 78 mm[Hg] Malathi Velázquez Other [employer] Other 12-28-2022 13:30-0500 Systolic blood pressure 146 mm[Hg] Malathi Solanoelisa Other [employer] Other 12-15-2022 11:15-0500 Body height 167.64 cm Gypsy Mcmahon Other [employer] Other 12-15-2022 11:15-0500 Body mass index (BMI) [Ratio] 21.53 kg/m2 Gypsy Mcmahon Other [employer] Other 12-15-2022 11:15-0500 Body weight 60.51 kg Gypsy Mcmahon Other [employer] Other 12-15-2022 11:15-0500 Diastolic blood pressure 73 mm[Hg] Gypsy Mcmahon Other [employer] Other 12-15-2022 11:15-0500 Systolic blood pressure 178 mm[Hg] Gypsy Mcmahon Other [employer] Other 09-22-2022 14:14-0400 Blood Pressure Location MALATHI VIEIRA [facility] 09-22-2022 14:14-0400 Diastolic blood pressure 90 mm[Hg] MALATHI VIEIRA [facility] 09-22-2022 14:14-0400 Heart rate 78 /min MALATHI VIEIRA [facility] 09-22-2022 14:14-0400 Systolic blood pressure 142 mm[Hg] MALATHI VIEIRA [facility] 09-01-2022 14:15-0400 Body height 167.64 cm Gypsy Mcmahon Other [employer] Other 09-01-2022 14:15-0400 Body mass index (BMI) [Ratio] 21.14 kg/m2 Gypsy Mcmahon Other [employer] Other 09-01-2022 14:15-0400 Body weight 59.42 kg Gypsy Mcmahon Other [employer] Other 09-01-2022 14:15-0400 Diastolic blood pressure 56 mm[Hg] Gypsy Mcmahon Other [employer] Other 09-01-2022 14:15-0400 Systolic blood pressure 132 mm[Hg] Gypsy Mcmahon Other [employer] Other 06-09-2022 13:42-0400 Diastolic blood pressure 71 mm[Hg] Marvin KWON [facility] 06-09-2022 13:42-0400 Heart rate 59 /min Marvin KWON [facility] 06-09-2022 13:42-0400 Systolic blood pressure 183 mm[Hg] Marvin KWON [facility] 04-24-2022 11:30-0400 Body height 167.64 cm Hunter Brown Other [facility] Other 04-24-2022 11:30-0400 Body mass index (BMI) [Ratio] 22.11 kg/m2 Hunter Brown Other [employer] Other 04-24-2022 11:30-0400 Body weight 62.14 kg Hunter Brown Other [employer] Other 04-24-2022 11:30-0400 Diastolic blood pressure 70 mm[Hg] Hunter Brown Other [employer] Other 04-24-2022 11:30-0400 Systolic blood pressure 159 mm[Hg] Hunter Brown Other [employer] Other 04-07-2022 14:15-0500 Body height 167.64 cm Gypsy Mcmahon Other [employer] Other 04-07-2022 14:15-0500 Body mass index (BMI) [Ratio] 21.79 kg/m2 Gypsy Mcmahon Other [employer] Other 04-07-2022 14:15-0500 Body weight 61.24 kg Gypsy Mcmahon Other [employer] Other 04-07-2022 14:15-0500 Diastolic blood pressure 62 mm[Hg] Gypsy Mcmahon Other [facility] Other 04-07-2022 14:15-0500 Systolic blood pressure 130 mm[Hg] Gypsy Mcmahon Other [facility] Other 03-11-2022 13:35-0500 Body temperature 97.5 [degF] MD Gypsy Mcmahon Work Phone: [facility] 03-11-2022 13:35-0500 Diastolic blood pressure 61 mm[Hg] MD Gypsy Mcmahon Work Phone: [facility] 03-11-2022 13:35-0500 Heart rate 60 /min MD Gypsy Mcmahon Work Phone: [facility] 03-11-2022 13:35-0500 Respiratory rate 18 /min MD Gypsy Mcmahon Work Phone: [facility] 03-11-2022 13:35-0500 SaO2% (BldA) [Mass fraction] 96 % MD Gypsy Mcmahon Work Phone: [facility] 03-11-2022 13:35-0500 Systolic blood pressure 135 mm[Hg] MD Gypsy Mcmahon Work Phone: [facility] 02-16-2022 10:45-0500 Body height 167.64 cm Gypsy Mcmahon Other [facility] Other 02-16-2022 10:45-0500 Body mass index (BMI) [Ratio] 21.46 kg/m2 Gypsy Mcmahon Other [facility] Other 02-16-2022 10:45-0500 Body weight 60.33 kg Gypsy Mcmahon Other [facility] Other 02-16-2022 10:45-0500 Diastolic blood pressure 70 mm[Hg] Gypsy Mcmahon Other [facility] Other 02-16-2022 10:45-0500 Systolic blood pressure 120 mm[Hg] Gypsy Lisandro Other [employer] Other 02-11-2022 12:00-0500 Body height 172.72 cm Hunter Casasack Other [employer] Other 02-11-2022 12:00-0500 Body mass index (BMI) [Ratio] 20.83 kg/m2 Hunter Brown Other [employer] Other 02-11-2022 12:00-0500 Body weight 62.14 kg Hunter Manny Other [employer] Other 02-11-2022 12:00-0500 Diastolic blood pressure 68 mm[Hg] Hunter Manny Other [employer] Other 02-11-2022 12:00-0500 Systolic blood pressure 144 mm[Hg] Hunter Manny Other [employer] Other 01-05-2022 10:30-0500 Body height 172.72 cm Hunter Manny Other [employer] Other 01-05-2022 10:30-0500 Body mass index (BMI) [Ratio] 22.04 kg/m2 Hunter Manny Other [employer] Other 01-05-2022 10:30-0500 Body weight 65.77 kg Hunter Manny Other [employer] Other 01-05-2022 10:30-0500 Diastolic blood pressure 78 mm[Hg] Hunter Brown Other [employer] Other 01-05-2022 10:30-0500 Systolic blood pressure 166 mm[Hg] Hunter Brown Other [employer] Other 03-27-2021 12:00-0500 Body height 172.72 cm Giana Griffiths Other [employer] Other 03-27-2021 12:00-0500 Body mass index (BMI) [Ratio] 22.96 kg/m2 Giana Griffiths Other [employer] Other 03-27-2021 12:00-0500 Body weight 68.49 kg Giana Griffiths Other [employer] Other 01-27-2021 10:45-0500 Body height 172.72 cm Giana Griffiths Other [employer] Other 01-27-2021 10:45-0500 Body mass index (BMI) [Ratio] 24.48 kg/m2 Giana Griffiths Other [employer] Other 01-27-2021 10:45-0500 Body weight 73.03 kg Giana Griffiths Other [employer] Other Encounters Encounter Date Encounter Type Care Provider Facility Start: 06-15-2023 ambulatory MALATHI Gonzalez ty:[facility] Start: 03-02-2023 End: 03-02-2023 ambulatory Gypsy Mcmahon Other [employer] Other Start: 03-02-2023 Telephone encounter Gypsy Mcmahon [facility] Start: 02-25-2023 End: 02-25-2023 ambulatory Jacinto Max Facility:[facility] Start: 02-25-2023 End: 02-25-2023 ambulatory MD Jacinto Max Work Phone: [facility] Work Phone: Start: 02-25-2023 End: 02-25-2023 Discharged Recurring MD Jacinto Max Work Phone: [facility] - [facility] Work Phone: Start: 02-18-2023 End: 02-18-2023 Patient encounter procedure MD Jacinto Max Work Phone: [facility] Work Phone: Start: 02-16-2023 End: 02-16-2023 ambulatory Gypsy Mcmahon Other [employer] Other Start: 02-16-2023 Office outpatient visit 15 minutes Gypsy Mcmahon [facility] Start: 02-16-2023 End: 02-16-2023 Patient encounter procedure MD Jacinto Max Work Phone: [facility] Work Phone: Start: 01-29-2023 ambulatory MALATHI GUERRERORY Fac[place] Start: 01-29-2023 End: 01-29-2023 Patient encounter procedure MALATHI VIEIRA [facility] Start: 01-26-2023 End: 01-26-2023 Patient encounter procedure MALATHI VIEIRA [facility] Start: 01-26-2023 End: 01-27-2023 ambulatory MALATHI [facility] [employer] Other Start: 01-26-2023 Telephone encounter Hunter brady [facility] Gastroenterology Start: 01-20-2023 End: 01-20-2023 ambulatory Hunter Brown Other [employer] Other Start: 01-20-2023 Telephone encounter Hunter brady [facility] Start: 01-12-2023 End: 01-12-2023 ambulatory Hunter Borwn Other [employer] Other Start: 01-12-2023 Office outpatient visit 25 minutes Hunter Brown [facility] Gastroenterology Start: 01-12-2023 End: 01-12-2023 Patient encounter procedure MD Jacinto Max Work Phone: [facility] Physician [facility] Gastroenterology Work Phone: Start: 01-11-2023 End: 01-11-2023 ambulatory Gypsy Mcmahon Other [employer] Other Start: 01-11-2023 Telephone encounter Gypsy Mcmahon [facility] Start: 01-05-2023 End: 01-05-2023 ambulatory Gypsy Mcmahon Other [employer] Other Start: 01-05-2023 Telephone encounter Gypsy Lisandro [facility] Start: 01-05-2023 Transitional care manage srvc 14 day discharge Gypsy Lisandro [facility] Start: 01-05-2023 End: 01-05-2023 Patient encounter procedure MD Jacinto Max Work Phone: [facility] Physician [facility] Work Phone: Start: 12-30-2022 End: 12-30-2022 ambulatory Malathi Velázquez Other [employer] Other Start: 12-30-2022 Telephone encounter Malathi Boss [facility] Start: 12-28-2022 End: 12-28-2022 ambulatory Malathi Velázquez Other [employer] Other Start: 12-28-2022 Office outpatient visit 15 minutes Malathi Velázquez [facility] Start: 12-28-2022 End: 12-28-2022 Patient encounter procedure MD Jacinto Max Work Phone: [facility] Physician [facility] Work Phone: Start: 12-15-2022 End: 12-15-2022 ambulatory Gypsy Mcmahon Other [employer] Other Start: 12-15-2022 Office outpatient visit 15 minutes Gypsy Mcmahon [facility] Start: 12-15-2022 Telephone encounter Gypsy Mcmahon [facility] Start: 12-15-2022 End: 12-15-2022 Patient encounter procedure MD Jacinto Max Work Phone: [facility] Physician [facility] Work Phone: Start: 11-11-2022 End: 11-11-2022 ambulatory AB [facility] Start: 10-29-2022 End: 10-29-2022 ambulatory Hunter Brown Facility:[facility] Start: 09-22-2022 End: 09-23-2022 ambulatory MALATHI VIEIRA [facility] Start: 09-22-2022 End: 09-22-2022 Patient encounter procedure MALATHI VIEIRA [facility] Start: 09-10-2022 End: 09-10-2022 ambulatory Jose G Ellington Other [employer] Other Start: 09-10-2022 Nursing evaluation o f patient and report Jose G Ellington [facility] Start: 09-08-2022 End: 09-08-2022 ambulatory Hunter Brown Other [employer] Other Start: 09-08-2022 Telephone encounter Hunter brady [facility] Gastroenterology Start: 09-01-2022 End: 09-01-2022 ambulatory Gypsy Mcmahon Other [employer] Other Start: 09-01-2022 Office outpatient visit 15 minutes Gypsy Mcmahon [facility] Start: 08-27-2022 End: 08-27-2022 ambulatory Gypsy Mcmahon Other [employer] Other Start: 08-27-2022 Telephone encounter Gypsy Mcmahon [facility] Start: 06-30-2022 End: 06-30-2022 ambulatory HAYDEEAB [facility] Start: 06-09-2022 End: 06-10-2022 ambulatory Marvinnick KWON Facility:[facility] Start: 06-09-2022 End: 06-09-2022 Patient encounter procedure Marvin Camacho [facility] Start: 05-27-2022 End: 05-28-2022 ambulatory MALATHI VIEIRA Facility: Start: 05-19-2022 End: 05-20-2022 ambulatory GYPSY MCMAHON Facility:[facility] Start: 05-19-2022 End: 05-19-2022 Patient encounter procedure MALATHI E DEB [facility] Start: 05-14-2022 End: 05-14-2022 ambulatory Gypsy Mcmahon Other [employer] Other Start: 05-14-2022 Telephone encounter Gypsy Mcmahon [facility] Start: 05-11-2022 End: 05-12-[address] GYPSY MCMAHON Facility:[facility] Start: 05-01-2022 (Televisit) Televisit Gypsy [facility] Start: 05-01-2022 End: 05-01-2022 ambulatory Gypsy Mcmahon Other [employer] Other Start: 05-01-2022 Telephone encounter Gypsy Mcmahon [facility] Start: 04-28-2022 End: 04-29-[address] GYPSY MCMAHON Facility:[facility] Start: 04-24-2022 End: 04-24-2022 ambulatory Hunter Brown Other [employer] Other Start: 04-24-2022 Office outpatient visit 15 minutes Hunter Brown [facility] Gastroenterology Start: 04-20-2022 ambulatory Marvin KWON Facility :[facility] Start: 04-16-2022 End: 04-16-2022 ambulatory Gypsy Mcmahon Other [employer] Other Start: 04-16-2022 Telephone encounter Gypsy Mcmahon [facility] Start: 04-14-2022 End: 04-14-[address] GYPSY MCMAHON Facility:[facility] Start: 04-07-2022 End: 04-07-2022 ambulatory Gypsy Mcmahon Other [employer] Other Start: 04-07-2022 Office outpatient visit 15 minutes Gypsy Mcmahon [facility] Start: 04-03-2022 End: 04-03-2022 ambulatory Gypsy Mcmahon Other [employer] Other Start: 04-03-2022 Telephone encounter Gypsy Mcmahon [facility] Start: 03-30-2022 End: 03-30-2022 ambulatory Gypsy Mcmahon Facility:[facility] Start: 03-30-2022 End: 03-30-2022 Departed Referred MD Gypsy Mcmahon Work Phone: [facility] [place] Work Phone: Start: 03-30-2022 End: 03-30-2022 ambulatory MD Gypsy Mcmahon Work Phone: [facility] Work Phone: Start: 03-30-2022 Nursing evaluation o f patient and report Gypsy Mcmahon [facility] Start: 03-20-2022 End: 03-21-[address] GYPSY MCMAHON Facility:[facility] Start: 03-19-2022 End: 03-19-2022 ambulatory Hunter Brown Other [employer] Other Start: 03-19-2022 Telephone encounter Hunter brady [facility] Start: 03-11-2022 Registered Recurring MD Gypsy Mcmahon Work Phone: [facility] Work Phone: Start: 02-23-2022 End: 02-24-[address] GYPSY MCMAHON Facility:[facility] Start: 02-19-2022 End: 02-19-2022 ambulatory Gypsy Mcmahon Other [employer] Other Start: 02-19-2022 Telephone encounter Gypsy Mcmahon [facility] Start: 02-17-2022 End: 02-18-[address] GYPSY MCMAHON Facility:[facility] Start: 02-16-2022 End: 02-16-2022 ambulatory Gypsy Mcmahon Other [employer] Other Start: 02-16-2022 Office outpatient visit 15 minutes Gypsy Mcmahon [facility] Start: 02-16-2022 End: 02-16-2022 Departed Referred MD Gypsy Mcmahon Work Phone: [facility] [place] Work Phone: Start: 02-11-2022 End: 02-11-2022 ambulatory Hunter Brown Other [employer] Other Start: 02-11-2022 Office outpatient visit 15 minutes Hunter Brown [facility] Start: 02-11-2022 Telephone encounter Hunter brady [facility] Start: 01-26-2022 End: 01-27-[address] GYPSY MCMAHON Facility:[facility] Start: 01-15-2022 End: 01-16-[address] GYPSY MCMAHON Facility:[facility] Start: 01-06-2022 End: 01-06-2022 ambulatory Hunter Brown Other [employer] Other Start: 01-06-2022 Telephone encounter Hunter brady [facility] Start: 01-05-2022 End: 01-06-2022 ambulatory CLAU Shrestha [facility] [employer] Other Start: 01-05-2022 Office outpatient visit 25 minutes Hunter Manny [facility] Start: 12-27-2021 End: 12-27-[address] REY MONTGOMERY Facility:[facility] Start: 12-18-2021 End: 12-19-2021 ambulatory CLAU NASCIMENTO Facility:[facility] Start: 12-08-2021 End: 12-09-[address] GYPSY MCMAHON Facility:[facility] Start: 11-18-2021 End: 11-18-2021 ambulatory Hunter Brown Other [employer] Other Start: 11-18-2021 Telephone encounter Hunter brady [facility] Start: 11-17-2021 End: 11-18-2021 ambulatory [...] 08-18-2021 End: 08-18-2021 ambulatory Giana Griffiths Other [employer] Other Start: 08-18-2021 Telephone encounter Giana Griffiths [facility] Start: 08-12-2021 End: 08-12-[address] GYPSY MCMAHON Facility:[facility] Start: 04-22-2021 End: 04-22-2021 ambulatory Giana Griffiths Other [employer] Other Start: 04-22-2021 Telephone encounter Giana Griffiths [facility] Gastroenterology Start: 03-27-2021 End: 03-27-2021 ambulatory Giana Griffiths Other [employer] Other Start: 03-27-2021 Office outpatient visit 25 minutes Giana Griffiths [facility] Gastroenterology Start: 01-27-2021 End: 01-27-2021 ambulatory Giana Griffiths Other [employer] Other Start: 01-27-2021 Office outpatient visit 25 minutes Giana Griffiths [facility] Gastroenterology Start: 01-27-2021 Telephone encounter Giana Griffiths [facility] Gastroenterology Procedures Date Procedure Procedure Detail Performing Clinician Start: 06-09-2022 Cystoscopy Marvin EMILI BOB Start: 02-16-2022 Piperacillin/tazobactam Gypsy Mcmahon Other Start: 02-16-2022 Urine culture MD Gypsy Mcmahon Work Phone: Start: 03-24-2012 Hernia of abdominal cavity (disorder) MALATHI VIEIRA Start: 10-07-2009 Cystoscopy MALATHI Leonarda WALTERHemant Start: 09-12-2009 Introduction of tens ion free vaginal tape MALATHI VIEIRA Start: 07-25-2009 Urodynamic studies CAMMY SEO DEB Bilateral cataracts (disorder) MALATHI VIEIRA Coronary artery bypa ss grafts x 4 MALATHI VIEIRA Excision of sphincte r of anus MALATHI VIEIRA Gallbladder structur e (body structure) MALATHI VIEIRA History of total hysterectomy MALATHI VIEIRA Knee region structur e (body structure) MALATHI DEB Plan of Treatment Date Care Activity Detail Author Start: 03-30-2022 Bacteria identified in Urine by Culture [facility] Immunizations Immunization Date Immunization Notes Care Provider Bob henry 02-16-2022 Shingrix 50 MCG/0.5M L; 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: [Shingrix 50 MCG/0.5ML] Hunter Brown Other [employer] Other 01-15-2022 influenza virus vaccine, unspecified formulation MALATHI DEB [facility] 01-15-2022 SARS-CoV-2 (COVID-19 ) [id number] MALATHI DEB [facility] 01-23-2021 SARS-CoV-2 (COVID-19 ) mRNA BNT-162b2 vax MALATHI DEB [facility] 01-06-2021 influenza virus vaccine, unspecified formulation MALATHI DEB [facility] 03-27-2020 SARS-CoV-2 (COVID-19 ) mRNA BNW-[id number] vax MALATHI DEB [facility] 03-04-2020 SARS-CoV-2 (COVID-19 ) mRNA BNT-162b2 vax MALATHI DEB [facility] 12-06-2019 influenza virus vaccine, unspecified formulation MALATHI DEB [facility] 12-14-2018 influenza virus vaccine, unspecified formulation MALATHI DEB [facility] 02-02-2018 influenza virus vaccine, unspecified formulation MALATHI DEB [facility] 11-08-2017 pneumococcal polysaccharide vaccine, 23 valent MALATHI DEB [facility] 11-02-2017 influenza virus vaccine, unspecified formulation MALATHI DEB [facility] 12-09-2016 influenza virus vaccine, unspecified formulation MALATHI DEB [facility] 12-02-2016 influenza virus vaccine, unspecified formulation MALATHI DEB [facility] 12-17-2015 influenza virus vaccine, unspecified formulation MALATHI DEB [facility] 10-10-2015 influenza virus vaccine, unspecified formulation MALATHI DEB [facility] 11-19-2014 influenza virus vaccine, unspecified formulation MALATHI DEB [facility] 11-09-2014 pneumococcal polysaccharide vaccine, 23 valent MALATHI DEB [facility] NEGATED: Highlighted row has not occurred!01-26-2023 influenza virus vaccine, unspecified formulation MALATHI DEB [facility] Payers Date Payer Category Payer Self-pay [id number] [address] [facility] [id number] 1958 Medicare [id number] 2.1 [id number]. 1936 Unknown [id number] 2.16.84 0.1.806351.3.579.2.593 1936 Unknown [id number] 2.16.84 0.1.401427.3.579.2.593 1936 Unknown [id number] 2.16.84 0.1.751908.3.579.2.593 1936 Unknown [id number] 2.16.84 0.1.385491.3.579.2.593 1936 Unknown [id number] 2.16.84 0.1.683442.3.579.2.593 1936 Unknown [id number] 2.16.84 0.1.772825.3.579.2.593 1936 Unknown [id number] 2.16.84 0.1.187649.3.579.2.593 1936 Unknown [id number] 2.16.84 0.1.721586.3.579.2.593 1936 Unknown [id number] 2.16.84 0.1.725048.3.579.2.593 1936 Unknown [id number] 2.16.84 0.1.436530.3.579.2.593 1936 Unknown [id number] 2.16.84 0.1.043326.3.579.2.593 1936 Unknown [id number] 2.16.84 0.1.845690.3.579.2.593 1936 Unknown [id number] 2.16.84 0.1.570434.3.579.2.593 1936 Unknown [id number] 2.16.84 0.1.393458.3.579.2.593 1936 Unknown [id number] 2.16.84 0.1.703653.3.579.2.593 1936 Unknown [id number] 2.16.84 0.1.126867.3.579.2.593 1936 Unknown [id number] 2.16.84 0.1.749422.3.579.2.593 1936 Unknown [id number] 2.16.84 0.1.929454.3.579.2.593 1936 Unknown [id number] 2.16.84 0.1.220383.3.579.2.593 1936 Unknown [id number] 2.16.84 0.1.237148.3.579.2.593 1936 Unknown [id number] 2.16.84 0.1.691554.3.579.2.593 1936 Unknown [id number] 2.16.8 40.1.181425.3.579.2.727 1936 Unknown [id number] 2.16.8 40.1.020991.3.579.2.727 1936 Unknown [id number] 2.16.8 40.1.173421.3.579.2.727 1936 Unknown [id number] 2.16.8 40.1.384281.3.579.2.727 1936 Unknown [id number] 2.16.8 40.1.542575.3.579.2.727 1936 Unknown [id number] 2.16.8 40.1.005538.3.579.2.727 1936 Unknown [id number] 2.16.8 40.1.035118.3.579.2.727 Unknown [id number] 2.16.8 40.1.736536.3.579.2.531 Unknown [id number] 2.16.8 40.1.279739.3.579.2.531 Unknown [id number] 2.16.8 40.1.595580.3.579.2.531 Social History Date Type Detail Facility Unknown if ever smoked [employer] Other Sex Assigned At [facility] Start: 1935 Sex Assigned At Female F [facility] Start: 05-19-2022 End: 06-09-2022 Tobacco smoking status Ex-smoker (finding) [facility] Start: 09-22-2022 Tobacco smoking status Never [facility] Functional Status Date Assessment Result Facility 01-26-2023 Functional Status N/A [facility] 09-22-2022 Functional Status N/A [facility] 06-09-2022 Functional Status N/A [facility] 05-19-2022 Functional Status N/A [facility] Clinical Notes 01-27-2021 to 02-16-2023 Note Date & Type Note Facility 02-16-2023 Evaluation note Encounter Date Diagnosis Assessment Notes Feb, C. difficile colitis (ICD-10 - A04.72) Discussed ID appt for frequent UTIs Feb, Acute URI (ICD-10 - J06.9) Recommend OTC meds that she is not sensitive to. Feb, Other complications following infusion, transfusion and therapeutic injection, initial encounter (ICD-10 - T80.89XA) pt reports pain after gentamicin. Had multiple injections. Give area time, heat and consider tylenol for pain. Feb, Pain, unspecified (ICD-10 - R52) [employer] Other [id number] Hospital Discharge instructions Patient Education 01/26/2023 16:05:17 Urinary Tract Infection, Adult, Npzv-jm-Dczu Urinary Tract Infection, Adult A urinary tract [...] Follow these instructions at home: Medicines Take shix-hco-eecsehf and prescription medicines only as told by [...] provider. Document Revised: 09/06/2020 Document Reviewed: 09/06/2020 [employer] Patient Education 2022 el?. Follow Up Care 06/09/2022 14:50:19 With:DEB ZAZUETA, MALATHI Olvera, URL Address: [address] [place] [address] [facility] [place] [address] [phone] When: Unknown Comments:f/u in [place] [facility] 12-13-2023 Evaluation note* Encounter Date Diagnosis Assessment Notes Treatment Notes Treatment Clinical Notes Jan, Diarrhea (ICD-10 - R19.7) [employer] Other 12-05-2023 Evaluation note* Encounter Date Diagnosis [...] a day, we will re-test for C-diff [employer] Other 11-28-2023 Evaluation note* Encounter Date Diagnosis Assessment Notes Treatment Notes Treatment Clinical Notes Dec, Clostridium difficile colitis (ICD-10 - A04.72) Finish meds as prescribed. (vern, Rosalio) Followup w Dr. Brown as scheduled. Understands the c diff could recur. Followup as needed Discussed good nutrition and healthy diet. [employer] Other 11-20-2023 Evaluation note* Encounter Date Diagnosis Assessment Notes Treatment Notes Treatment Clinical Notes Dec, Diarrhea, unspecified type (ICD-10 - R19.7) Pt appears to be having secondary from viral infection. There is no abdominal pain on exam and pt is afebrile which is reassuring. C. diff infection is a possibility as she was recently treated [facility] antibitics for a UTI, will check stool [...] Pt understands and agrees with the plan. [employer] Other 11-07-2023 Evaluation note* Encounter Date Diagnosis Assessment Notes Treatment Notes Treatment Clinical Notes Dec, Frequent UTI (ICD-10 - N39.0) [employer] Other 11-07-2023 Evaluation note* Encounter Date Diagnosis [...] w Dr. Licea today. Consider PT at [facility] or the [employer] Other 10-04-2023 [facility] Cardiology Clinic Note Chief Complaint: Patient here [...] veins Hypertension - Uncon (more content not included)...[facility]08-15-2023 Hospital Discharge instructions Patient Education 09/22/2022 15:32:53 Urinary Tract Infection, Adult, Nswf-nr-Jivg Urinary Tract Infection, Adult A urinary tract [...] Follow these instructions at home: Medicines Take mnmf-xck-mjqievk and prescription medicines only as told by [...] provider. Document Revised: 09/06/2020 Document Reviewed: 09/06/2020 [employer] Patient Education 2022 el?. Follow Up Care 09/22/2022 10:38:22 With:MALATHI VIEIRA PA-C, URL Address: [address] [place] [address] When: Unknown [facility] 08-03-2023 Evaluation note* Encounter Date Diagnosis Assessment Notes Treatment Notes Treatment Clinical Notes Sep, Dysuria (ICD-10 - R30.0) [employer] Other 08-01-2023 Evaluation note* Encounter Date Diagnosis Assessment Notes Treatment Notes Treatment Clinical Notes Sep, Microscopic colitis, unspecified microscopic colitis type (ICD-10 - K52.839) [employer] Other 07-25-2023 Evaluation note* Encounter Date Diagnosis Assessment Notes Treatment Notes Treatment Clinical Notes Aug, Frequent UTI (ICD-10 - N39.0) Continue estrogen cream. Review with Urology on her followup appt. Discussed causes of UTIs Aug, Lymphocytic colitis (ICD-10 - K52.832) Improved with GI at [facility]. 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 Barry. Reviewed medications and explained their purpose. 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 Depending on the risk-benefit ratio will consider starting 1 or the other. She is on Zocor which is not ideal. If her cholesterol is not controlled, would suggest switching her to 40 mg of Lipitor or 20 mg of Crestor. Follow-up in 6 months or sooner should problems arise or her stress test revealed ischemia Jake Barry MD, MPH, [facility], [facility], [facility] Interventional Cardiology Pager Email: [email or web address]05-02-2023 Hospital Discharge instructions Patient Education 06/09/2022 14:15:56 Urinary Tract Infection, Adult, Nzwr-jx-Pkxh Urinary Tract Infection, Adult A urinary tract [...] Follow these instructions at home: Medicines Take hsrt-lll-gkuizjh and prescription medicines only as told by [...] provider. Document Revised: 09/06/2020 Document Reviewed: 09/06/2020 [employer] Patient Education 2022 el?. Follow Up Care 06/01/2022 10:03:13 With:CHER KRISHNAN, Marvin Camacho, URL Address: [facility] [address] [place] [address]- [phone] When:10/10/2022 [facility] 04-11-2023 NoteChief Complaint Referral *Recurrent UTI HPI [...] for chronic cystitis. S/p TVT sling 2009 1. Recurrent UTI [...] anesthesia. 2. Feeling o (more content not included)...[facility]Result Comment: Electronically Signed By: MALATHI VIEIRA PA-C\.br\Date and Time Signed: 05/19/2313:49 EDT\.br\Electronically Co-Signed By: Ela Smith\.br\Date and Time Co-Signed: 05/19/22 14:40 [id number] Hospital Discharge instructions Patient Education 05/19/2022 14:16:45 [...] Treatment for this condition includes: Antibiotic medicine. Yqaq-ftj-mdiascv medicines to treat discomfort. Drinking enough water [...] Follow these instructions at home: Medicines Take klng-ait-veyifrn and prescription medicines only as told by [...] 11/04/2005 Document Revised: 01/12/2019 Document Reviewed: 08/04/2018 [employer] Patient Education 2019 el?. Follow Up Care 04/20/2022 10:50:51 With:DEB ZAZUETA, MALATHI Olvera, URL Address: [address] [place] [address] When: Unknown [facility] 04-06-2023 Evaluation note* Encounter Date Diagnosis Assessment Notes Treatment Notes Treatment Clinical Notes May, Frequent UTI (ICD-10 - N39.0) [employer] Other 03-24-2023 Evaluation note* Encounter Date Diagnosis [...] back this morning. antibiotic at her pharmacy. [employer] Other 03-17-2023 Evaluation note* Encounter Date Diagnosis Assessment Notes Treatment Notes Treatment Clinical Notes Apr, Lymphocytic colitis (ICD-10 - K52.832) Continue Entyvio as directed Continue Lotronex 0.5 mg 1/2 tablet daily Rto 4 months [employer] Other 03-09-2023 Evaluation note* Encounter Date Diagnosis Assessment Notes Treatment Notes Treatment Clinical Notes Apr, Acute cystitis without hematuria (ICD-10 - N30.00) [employer] Other 02-28-2023 Evaluation note* Encounter Date Diagnosis Assessment Notes Treatment Notes Treatment Clinical Notes Mar, Recurrent UTI (ICD-10 - N39.0) Discussed options. Will try estrogen cream for vaginal health. Denies personal history of female cancers. Will also set up w Urology Mar, Colitis (ICD-10 - K52.9) Further treatment with Dr. Brown w appt on 04/24 [employer] Other 02-20-2023 Evaluation note* Encounter Date Diagnosis Assessment Notes Treatment Notes Treatment Clinical Notes Mar, Dysuria (ICD-10 - R30.0) [employer] Other 01-09-2023 Evaluation note* Encounter Date Diagnosis Assessment Notes Treatment Notes Treatment Clinical Notes Feb, Acute cystitis without hematuria (ICD-10 - N30.00) Sent to [facility] for urine culture - will treat based on results. Feb, Encounter for immunization (ICD-10 - Z23) Feb, Microscopic colitis, unspecified microscopic colitis type (ICD-10 - K52.839) Keep appt w Dr. Brown. Discussed boost or other supplement to gain weight Feb, Gastric ulcer (ICD-10 - K25.9) Encouraged her to continue pantoprazole [employer] Other 01-04-2023 Evaluation note* Encounter Date Diagnosis Assessment Notes Treatment Notes Treatment Clinical Notes Feb, Lymphocytic colitis (ICD-10 - K52.832) Start Entyvio infusions every 8 weeks Continue Budesonide, Alosetron, Imodium, and Pepto for now until starting Entyvio. Pt to keep record of bowel movements - how many and consistency Follow up in 2 months Feb, Fecal incontinence (ICD-10 - R15.9) [employer] Other 11-28-2022 Evaluation note* Encounter Date Diagnosis [...] Pantoprazole as prescribed Okay to stop Sucralfate [employer] Other 09-25-2022 NoteOPERATIVE NOTE OPERATION DATE: 11/04/2021 [...] was taken to PACU in good condition.[facility] 03-27-2021 Evaluation note* Encounter Date Diagnosis Assessment Notes Treatment Notes Treatment Clinical Notes Mar, Microscopic colitis, unspecified microscopic colitis type (ICD-10 - K52.839) INCREASE COLESTIPOL TO 4 TABS AT LUNCHTIME DAILY IF NOT IMPROVED ON HIGHER DOSE PT TO CALL ON 03/31 FOR ALTERNATIVE PLAN Mar, Irritable bowel syndrome with diarrhea (ICD-10 - K58.0) [employer] Other 12-20-2021 Evaluation note* Encounter Date Diagnosis Assessment Notes Treatment Notes Treatment Clinical Notes Jan, Microscopic colitis, unspecified microscopic colitis type (ICD-10 - K52.839) START COLESIPOL 2 PO DAILY CONTINUE BUDESONIDE WITHOUT CHANGE 3 PO Q AM AND MAYBE CONSIDERING STOP THIS IF COLESTIPOL IS WORKING ENOUGH TO CONTROL HER SYMPTOMS [employer] Other 12-20-2021 Evaluation note* Encounter Date Diagnosis Assessment Notes Treatment Notes Treatment Clinical Notes Jan, Microscopic colitis, unspecified microscopic colitis type (ICD-10 - K52.839) [facility] Other Evaluation + Plan note No data available for this section [facility] evaluation + Plan note Future Appointments Appointment Date:10/27/2022 01:00:00 PM Scheduled Provider:MALATHI VIEIRA PA-C Location:[facility] Appointment Type:URO Office Visit [facility] Evaluation + Plan note Future Appointments Appointment Date:12/29/2022 01:00:00 PM Scheduled Provider:MALATHI VIEIRA PA-C Location:[facility] Appointment Type:URO Office Visit [facility] evaluation + Plan note Future Appointments Appointment Date:06/15/2023 02:00:00 PM Scheduled Provider:MALATHI VIEIRA PA-C Location:[facility] Appointment Type:URO Office Visit [facility] evaluation + Plan note Future Appointments Appointment Date:01/30/2023 10:30:00 AM Scheduled Provider: Location:[facility] Appointment Type:ASU IV Antibiotic (FT) Appointment Date:01/31/2023 10:30:00 AM Scheduled Provider: Location:[facility] Appointment Type:ASU IV Antibiotic (FT) Appointment Date:02/01/2023 10:30:00 AM Scheduled Provider: Location:[facility] Appointment Type:ASU IV Antibiotic (FT) Appointment Date:02/02/2023 10:30:00 AM Scheduled Provider: Location:[facility] Appointment Type:ASU IV Antibiotic (FT) Appointment Date:02/03/2023 10:30:00 AM Scheduled Provider: Location:[facility] Appointment Type:ASU IV Antibiotic (FT) Appointment Date:02/04/2023 10:30:00 AM Scheduled Provider: Location:[facility] Appointment Type:ASU IV Antibiotic (FT) Appointment Date:06/15/2023 02:00:00 PM Scheduled Provider:MALATHI VIEIRA PA-C Location:[facility]ointment Type:URO [facility] Evaluation noteNo assessment information available [facility] Work Phone: [facility] general Narrative - Reported* Type Description Date Medical History HTN Medical History hyperlipidemia Medical History microscopic colitis Surgical History T&A Surgical History Quad by-pass Surgical History total hysterectomy Surgical History gall bladder Surgical History Cataracts Surgical History Right Knee Scope Surgical History Sphincterectomy Surgical History Left Rotator Scope Surgical History Hernia Repair 03/24/2012 Hospitalization History See Surgical Hx [employer] Other Hisvfxv general Narrative - Reported* Type Description Date [...] See Surgical Hx Hospitalization History [facility] 12/2022 [employer] Other Hisqsrr general Narrative - Reported* Type Description Date [...] See Surgical Hx Hospitalization History [facility] 12/2022 [employer] Other Hisnrvc general Narrative - Reported* Type Description Date Medical History HTN Medical History hyperlipidemia Medical History microscopic colitis Medical History C diff Medical History colitis Medical History recurrent UTI Surgical History T&A Surgical History Quad by-pass Surgical History total hysterectomy Surgical History gall bladder Surgical History Cataracts Surgical History Right Knee Scope Surgical History Anal Sphincterectomy Surgical History Left Rotator Scope Surgical History Hernia Repair 03/24/2012 Surgical History knee scope Surgical History stent placed and removal Surgical History rotator scope Surgical History left hip replacement Surgical History hysterectomy Hospitalization History See Surgical Hx Hospitalization History [facility] 12/2022 [employer] Other History general Narrative - Reported* Type Description Date Medical History HTN Medical History hyperlipidemia Medical History microscopic colitis Medical History C diff Medical History colitis Medical History recurrent UTI Surgical History T&A Surgical History Quad by-pass Surgical History total hysterectomy Surgical History gall bladder Surgical History Cataracts Surgical History Right Knee Scope Surgical History Anal Sphincterectomy Surgical History Left Rotator Scope Surgical History Hernia Repair 03/24/2012 Surgical History knee scope Surgical History stent placed and removal Surgical History rotator scope Surgical History left hip replacement Surgical History hysterectomy Surgical History Infusion Zinplava 02/25/23 Hospitalization History See Surgical Hx Hospitalization History [facility] 12/2022 [employer] Other Hospital Discharge instructions No data available for this section [facility] No data available for this section [facility] [employer] Summary Purpose Family History No Family History Records FoundNo Family History Records FoundNo Family History Records FoundNo Family History Records Found No data available for this section No data available for this section No Family History Records FoundNo Family History Records Found Advance Directives Advance Directive Response Recorded Date/ Time Advance Directives No November 22, 2017 9:57am Hospital Course Note [facility] Clinical Discharge Summary PERSON INFORMATION Name DELICIA HSU Age 83 Years 1935 Sex FEMALE Language Armenian PCP Lisandro KRISHNAN, Gypsy Olvera Marital Status Med Service Med/Surg N [id number] Acct# Arrival 09/25/2019 06:52:00 Visit Reason SURGERY - LEFT TOTAL HIP Acuity LOS Address: [address] [place] [address] Comment: PROVIDER INFORMATION VITALS INFORMATION Vital Sign [...] MD [Verified on: 09/25/2019 11:54 EDT] Enrike Moar MD Procedure Findings Note Patient: DELICIA HSU [...] for Visit Chief Complaint N30.00 Microscopic colitis Chief Complaint Tbh Not Feeling Well Tbh Follow Up 3 Month Follow Up Legs A04.71 Reason for Referral Reason DUPLICATE [place] office - frequent UTIs. Diagnosis 1 Frequent UTI (N39.0) Referral Organization [facility] Referring Provider First Name Gypsy Referring Provider Last Name Lisandro Referring Provider [facility] Referred Provider Beau Hernandez Referred Address [address],[place],[address] Referred Provider Specialty Urology Referral Priority Routine General Notes Tatyana Bojorquez 01:56:52 PM >received today Tatyana Bojorquez 05/14/2022 02:02:41 PM >attachments made, notes locked, referral faxed Tatyana Bojorquez 05/14/2022 03:25:50 PM >DUPLICATE REFERRAL Reason *FU 04/28 [place] office - recurrent UTIs. Diagnosis 1 Recurrent UTI (N39.0 ) Referral Organization [facility] jah Referring Provider First Name Gypsy Referring Provider Last Name Lisandro Referring Provider [facility] Referred [facility] Referred Provider Gerson Juárez Referred Address [address] [place],[address] Referred Provider Specialty Urology Referral Priority Routine [...] and content) DATE CREATED AUTHOR 09/17/[address] [facility] DATE CREATED AUTHOR AUTHOR'S ORGANIZ ATION 10/30/2019 [facility] DATE CREATED AUTHOR AUTHOR'S ORGANIZ ATION 05/31/2022 [facility] DATE CREATED AUTHOR AUTHOR'S ORGANIZ ATION 11/15/2022 [facility] DATE CREATED AUTHOR AUTHOR'S ORGANIZ ATION 02/17/2023 [facility] DATE CREATED AUTHOR AUTHOR'S ORGANIZ ATION 02/28/2023 [facility] REASON FOR VISIT (unrecogniz ed section and [...] on alosetron, Patient was recently inpatient at [facility] and was diagnosed with gastric ulcerPRESCRIPTIONPATIENT HERE FOR 1 MONTH FOLLOW UP LYMPHOCYTIC COLITIS.No InformationEntyvioCheck upREFILLUANo Informationurine cultureDISCUSSIONurine culturereferralPATIENT HERE FOR 2 MONTH FOLLOW UPupset stomach, vomiting and diarrheautiurine culturerefillmedication discussREFILLSUA-ConfusionRefillTBHNot Feeling WellUpdateTCMtbh follow uprecent admissionPatient here for 3 month follow upClinicalC.DiffLegsdizzy Care Teams (unrecognized sec tion and content) Team Status: Inactive Member Role Status Dates Gypsy Mcmahon MD Attending Provider Active Team Status: Inactive Member Role Status Dates Gypsy Mcmahon MD Primary Care Provider, Attending Leonarda griffiths Active Team Status: Active Member Role Status Dates Gypsy Mcmahon MD Primary Care Provider Active Hunter Brown MD Attending Provider Active Team Status: Active Member Role Status Dates Gypsy Mcmahon MD Primary Care Provider Active Team Status: Inactive Member Role Status Dates Gypsy Mcmahon MD Attending Provider Active St art: December 15, 2022 End: December 15, 2022 Team Status: Inactive Member Role Status Dates Malathi Velázquez APRN [employer] CONSULTANT-C Attending Provider Act judah Start: December 28, 2022 End: December 28, 2022 Team Status: Inactive Member Role Status Dates Gypsy Mcmahon MD Attending Provider Active St art: January 05, 2023 End: January 05, 2023 Team Status: Inactive Member Role Status Dates Hunter Brown MD Attending Provider Active Start: January 12, 2023 End: January 12, 2023 Team Status: Inactive Member Role Status Dates Gypsy Mcmahon MD Attending Provider Active St art: February 16, 2023 End: February 16, 2023 Team Status: Inactive Member Role Status Dates Jacinto Max MD Attending Provider Active Sta rt: February 18, 2023 End: February 18, 2023 Team Status: Inactive Member Role Status Dates Jacinto Max MD Attending Provider, Referring Provider Active Start: February 25, 2023 End: February 25, 2023 Gypsy Mcmahon MD Primary Care Provider Active Start: February 25, 2023 End: February 25, 2023 Goals (unrecognized section and content) Goals may be documented in a n alternate section FOR RECORDS PERTAINING TO PATIENTS WHO ARE [...] BE BASED ON THE PRIMARY CLINICAL RECORDS. [employer] provides no warranty or guarantee of the accuracy or completeness of information in this document.
[2023-03-12 15:41] LABS: C. Difficile PCR POSITIVE (NEGATIVE)
== END 2023-03-12 12:12 | disposition home or self-care (01) ==
LOC: LAB 12:11
PROVIDERS: PCP Family Medicine; Visit Provider Internal Medicine Infectious Disease
DX: R19.7 Diarrhea, unspecified (principal)
CPT/HCPCS: 87493

== ENCOUNTER 2023-03-18 07:20 | Outpatient (RCR) | payer MEDICARE, BC, SELFPAY | END 2023-04-27 11:17 | disposition home or self-care (01) | LOC: PT 07:20 | PROVIDERS: PCP Family Medicine; Visit Provider Family Medicine | DX: R26.81 Unsteadiness on feet (principal) | CPT/HCPCS: 97110; 97112; 97140; 97163 ==

== ENCOUNTER 2023-04-07 20:32 | Outpatient (REF) | payer MEDICARE, BC, SELFPAY ==
--- OUTSIDE RECORDS SUMMARY | 2023-04-07 20:45 | XMS_ITS | CCD ---
Author Name Unknown Address [address] [place] [address] Organization [facility] Care Team Providers Care [employer] Name Role Phone Giana Griffiths Unavailable Hunter Brown Unavailable [phone] MD Gypsy Mcmahon Primary Care Provider MD Gypsy Mcmahon Attending Provider MD Hunter Brown Attending Provider Gypsy Mcmahon Unavailable GYPSY MCMAHON Primary Care Physician [phone] DR GYPSY MCMAHON Admitting Unavailable MCMAHON, DR [...] GYPSY Olvera Attending Unavailable MCMAHON, DR GYPSY Ovlera Primary Care Unavailable MCMAHON, DR GYPSY Olvera [...] G Ellington Unavailable ELTAPATSY, EHAB Attending Unavailable ELTAPATSY, EHAB Attending Unavailable Malathi Velázquez Unavailable Marvin [...] Primary Care Unavailable Jacinto Max Referring Unavailable Jacinto Max Unavailable Allergies Allergy Classification Reported Allergen(s) Allergy Type Date of Onset Reaction(s) Facility (20 sources) Promethazine; 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: [promethazine] Drug Allergy 02-04-20 13 anaphylaxis, Anaphylaxis (disorder) [facility] (20 sources) histamines Drug allergy Unknown [employer] Other (5 sources) Histamine H2 Inhibitors; 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: [Histamine H2 Inhibitors] Allergy to substance 07-16-19 13 Unknown Reaction [facility] (20 sources) levoFLOXacin; 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: [levofloxacin] Drug Allergy 07-01-19 23 Tremor (finding) [facility] (1 source) diphenhydrAMINE Drug Allergy 04-20-19 20 [facility] (1 source) ezetimibe Drug Allergy 04-20-19 20 [facility] (1 source) Gemfibrozil Drug Allergy 04-20-19 20 [facility] (2 sources) Levamisole; 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: [Phenergan] Drug Allergy 07-16-19 13 [facility] (1 source) NSAIDs Drug allergy (disorder) 04-20-19 20 [facility] (1 source) Nasal Decongestant Drug allergy (disorder) 04-20-19 [facility] (1 source) Darvocet-N 100 Drug allergy (disorder) 04-20-19 20 [facility] (9 sources) diphenhydrAMINE; 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: [diphenhydramine] Drug Allergy jumpy,, Unknown [facility] (12 sources) Penicillin; 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: [penicillin] Drug Allergy Eruption of skin (disorder) [facility] (1 source) Histamine; 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: [HISTAMINE] Drug Allergy 02-04-20 13 [facility] (2 sources) Penicillins; 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: [Penicillins] Propensity to adverse reactions 02-25-19 24 [facility] (1 source) Promethazine Drug Allergy 12-07-19 18 [facility] Medications Current Medications Medication Drug [...] hrs for 7 day(s) Feb, Active clopidogrel (20 sources) P2Y12 Platelet Inhibitor Start: 09-22-2022 clopidogrel [...] for 90 days Jan, Active Cranberry preparation (8 sources) Non-Standardized Food Allergenic Extract, Non-Standardized Plant [...] Daily December 05, 2017 11:00pm lactobacillus acidophilus [id number] unt oral tablet (2 sources) take 1 [...] 1 tablet Orally bid for 7 day(s) 11 Erickson, 2022 Active take 1 tablet by mouth every [...] Ordered Start: 05-14-2022 take 1 capsule by [facility] every twelve hours Macrobid 100 MG 1 [...] Sep, Active vancomycin 125 mg oral capsule (16 sources) Glycopeptide Antibacterial Start: 03-12-2023 take 1 capsule by mouth every six hours Vancomycin HCl 125 MG 1 capsule Orally every 6 hrs for 14 days Mar, Active Start: 12-19-2023 vancomycin 125 mg Cap 125 mg = 1 cap(s) Start Date: 01/26/23 Status: Ordered Start: 01-26-2023 Vancomycin HCl 250 MG 1 capsule four times a day for 14 days, then 1 capsule twice a day for 14 days Orally as directed for 28 days PLEASE CHECK ALLERGIES Jan, Active Start: 01-26-2023 take 1 capsule by mo [facility] every twenty-four hours Vancomycin HCl 250 MG 1 capsule Orally Once a day for 30 days PLEASE CHECK ALLERGIES Jan, Active Entyvio (20 sources) Integrin Receptor Antagonist Start: 05-19-2022 Entyvio mg, IV, Refills(s) 0 Start Date: 05/19/22 Status: Ordered Entyvio Active Vitamin D 1000 UNIT (6 sources) take [address] [facility] once daily Vitamin D 1000 UNIT [...] procedure, # 2 cap(s), Refills(s) 0, Pharmacy: [facility]/pharmacy #[id number], 178, cm, 05/19/22 13:31:00 EDT, Height/Length [...] Episodic Coronary atherosclerosis and other heart disease (20 sources) Atherosclerotic heart disease of [place] coronary artery without angina pectoris; 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: [Coronary [...] source) Encounter for immunization Episodic Intestinal infection (5 sources) Enterocolitis due to Clostridium difficile, not [...] 02-04-2022 Chronic Other aftercare (1 source) Other nursing home (current) drug therapy; 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: [OTH HALFWAY CURRENT DRUG THERAPY] Onset: 03-24-2022 Episodic Other [...] incontinence of feces] Episodic Other gastrointestinal disorders (4 sources) Diarrhea, unspecified Episodic Other gastrointestinal disorders [...] and visceral atherosclerosis (14 sources) 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; 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: [Atherosclerosis of [place] arteries of left leg with ulceration of [...] codes; unclassified (1 source) Pain, unspecified Episodic Residual codes; unclassified (1 source) Other specified personal risk factors, not elsewhere classified Episodic Screening and history of mental health [...] Onset: 11-02-2021 Episodic Other aftercare (1 source) 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; 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: [HALFWAY CURRENT USE OF ASPIRIN] Onset: 11-10-2021 Episodic [...] Facility IntraOperative Documentson 0 02-12-2023 IntraOperative Documents [id number]#1.00TIFF [facility] Physician Orderon 02-12-2023 Physician Order [id number]#1.00TIFF [facility] Physician Order [id number]#1.00TIFF [facility] ED Note-Physicianon 02-05-20 ED Note-Physician [id number]#1.00TIFF [facility] Lab Reportson 02-04-2023 Lab Reports [id number]#1.00TIFF [facility] Lab Reports [id number]#1.00TIFF [facility] Lab Reports [id number]#1.00TIFF [facility] Consent for Treatmenton 01-09 Consent for Treatment [id number]#1.00TIFF [facility] Retail - Clinical Noteon Retail - Clinical Note [id number]#1.00TIFF [facility] Lab Reportson 01-28-2023 Lab Reports [id number]#1.00TIFF [facility] Physician Orderon 01-28-2023 Physician Order [id number]#1.00TIFF [facility] Urology Office/Clinic Noteon 01-27-2023 Urology [...] Urnls Dip Stick Auto w/o Microscopy POC 51543 2. 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 Case discussed w GI, Dr Brown's WEED SCIENCE RESEARCH TECHNICIAN Katie. he agrees w above plan. 3. [...] the risks of side effects etc. Orders: 07982 Measure Post Void residual urine and/or bladder capacity by US- non-imaging Total time spent reviewing previous notes/results/external documents, preparing the chart, conducting the encounter with the patient and family, ordering tests/medications, and documenting the encounter was 40 minutes. Follow-up With When Contact Information MALATHI VIEIRA PA-C, URL [address] [place] [address] [phone] Additional Instructions: f/u in Spring Patient Education Urinary Tract Infection, Adult, Spou-id-Erfs Documentation recorded by the scribe Caprice Stratton accurately reflects the services(s) I performed and decisions made by me. Authenticated by Malathi Vieira PA-C on 01/27/2023 13:56:47. I, Caprice Stratton, personally scribed for Malathi Vieira PA-C on (more content not included)... [facility] Comment on above: Result Comment: Elec [...] Urnls Dip Stick Auto w/o Microscopy POC 30440 Your Care Team Attending Physician - MALATHI [...] MALATHI VIEIRA PA-C Where: [facility] Lab Reportson 01-26-2023 Lab Reports [id number]#1.00TIFF [facility] Patient Educationon 01-27-20 23 Patient Education Obstetrics and Gynec ology [...] these instructions at home: Medicines ? Take nfsw-hsq-udysesv and prescription medicines only as told by [...] provider. Document Revised: 09/06/2020 Document Reviewed: 09/06/2020 [employer] Patient Education ? 2022 [employer] [facility] Lab Reportson 01-25-2023 Lab Reports [id number]#1.00TIFF [facility] Lab Reports [id number]#1.00TIFF [facility] Lab Reportson 12-04-2022 Lab Reports [id number]#1.00TIFF [facility] Physician Orderon 12-01-2022 Physician Order [id number]#1.00TIFF [facility] Office Visiton 11-11-2022 Follow-up visit [id number] Delicia Hsu Jean Carlos 1935 F Date Provider Department Center 11/11/2022 KulwinderJAKE BARRY ROSA ISELA [facility] Family History Problem Relation Age of Onset Aneurysm Mother Heart attack Father Family Status - Relation Status Age at Mother Father Level of Service:39849 [place] OFFICE/OUTPATIENT ESTABLISHED LOW MDM 20-29 MIN Normal [facility] Lab Reportson 09-25-2022 Lab Reports [id number]#1.00CD:127 [facility] Lab Reports [id number]#1.00CD:127 [facility] Physician Orderon 09-23-2022 Physician Order [id number]#1.00CD:127 [facility] Screenson 09-23-2022 Screens [id number]#1.00CD:127 [facility] Ambulatory Visit Summaryon 0 09-22-2022 [...] MALATHI VIEIRA PA-C Where: [facility] Patient Educationon 09-23-19 Patient Education Obstetrics and Gynec ology Urinary [...] these instructions at home: Medicines ? Take nyhl-jpt-fqhxohv and prescription medicines only as told by [...] provider. Document Revised: 09/06/2020 Document Reviewed: 09/06/2020 [employer] Patient Education ? 2022 [employer] [facility] Urology Office/Clinic Noteon 09-22-2022 Urology [...] symptoms not resolved. C&S this morning at [facility] ( not finalized) UTI symptoms Memory [...] resolved per daughter. C&S this morning at [facility] (not finalized) - will call pt w/ results and send abx if needed. UTI symptoms include memory issues, losses balance, dizziness. 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 [address] Additional Instructions: Patient Education Urinary Tract Infection, Adult, Djpb-lm-Rmeg IJazlyn, personally scribed for Malathi Vieira PA-C [...] 3 mg (more content not included)... [facility] Comment on above: Result Comment: Elec tronically Signed By: MALATHI VIEIRA PA-C\.br\Date and Time Signed: 09/22/22 16:16 EDT\.br\Electronically Co-Signed By: Jazlyn Lucero\.br\Date and Time Co-Signed: 09/22/22 15:38 EDT Lab Reportson 07-02-2022 Lab Reports [id number]#1.00CD:127 [facility] Office Visiton 06-30-2022 Follow-up visit [id number] Delicia Hsu 1935 F Date Provider Department Center 06/30/2022 [facility] BARRY C[facility] Family History Problem Relation Age of Onset Aneurysm Mother Heart attack Father Family Status - Relation Status Age at Mother Father Level of Service:61037 [place] OFFICE/OUTPATIENT NEW MODERATE MDM 45-59 MINUTES Normal [facility] Consent for Procedure/Surger yon 06-10-2022 Consent for Procedure/Surgery [id number]#1.00CD:127 [facility] Patient Educationon 06-10-19 Patient Education [...] these instructions at home: Medicines ? Take rruz-ggk-arxcamr and prescription medicines only as told by [...] provider. Document Revised: 09/06/2020 Document Reviewed: 09/06/2020 [employer] Patient Education ? 2022 [employer]. [facility] Urology Office/Clinic Noteon 06-09-2022 Urology [...] up arranged. Assessment/Plan S/p TVT sling 2009 02. Recurrent UTI [...] the diarrhea. Follow-up With When Contact Information CHER KRISHNAN, Marvin Camacho, JEFF In 4 months 10/10/2022 EDT [facility] [address] [place] [address] [phone] Additional Instructions: Patient Education Urinary Tract Infection, Adult, Dtxe-vf-Rscn IRajani, personally scribed for Dr. Kwon on 06/09/2022 14:30:17. . Documentation recorded by the rafaelibRajani olvera, accurately reflects the services(s) I performed and decisions made by me. Problem List/Past Medical History Ongoing Colitis Feeling of incomplete bladder emptying Hyperlip (more content not included)... [facility] Comment on above: Result Comment: Elec tronically Signed By: Marvin KWON MD\.br\Date and Time Signed: 06/09/22 14:35 EDT\.br\Electronically Co-Signed By: Rajani Locke MA\.br\Date and Time Co-Signed: 06/09/22 14:30 EDT Lab Reportson 06-02-2022 Lab Reports [id number]#1.00CD:127 [facility] Lab Reports [id number]#1.00CD:127 [facility] Lab Reports [id number]#1.00CD:127 [facility] Lab Reports [id number]#1.00CD:127 [facility] RAD - CT Reporton 06-02-2022 RAD - CT Report [id number]#1.00CD:[address] [facility] [address] ABD/PELVIS WO CONon 05-27 CT [...] by: MI NUÑEZ Date: 2022-05-27 10:34 [facility] Physician Referralon 023 Physician Referral [id number]#1.00CD:127 [facility] Ambulatory Visit Summaryon 0 05-19-2022 Ambulatory Visit Summary DELICIA HSU :1935 Visit Date:05/19/2022 Ambulatory Visit Instructions Your Diagnosis Recurrent UTI Feeling of incomplete bladder emptying Colitis Tests Performed Urnls Dip Stick Auto w/o Microscopy POC [address]196 CT Abdomen/Pelvis w/ Contrast -- Results Pending [...] Schedule the Following Appointments Follow Up with DEB ZAZUETA, JEFF BONE When: Where: [address] [place] [address] Medications What How Much When Instructions New [...] Urnls Dip Stick Auto w/o Microscopy POC 56080 (05/19/2022) Bilirubin Urine Dipstick - Negative Blood Urine Dipstick - Negative Glucose Urine Dipstick - Negative Ketones Urine Dipstick - Trace - 5 mg/dl Leukocytes Urine Dipstick - 1+ Small Nitrite Urine Dipstick - Negative Protein Urine Dipstick - Negative Specific [place] Urine Dipstick - 1.020 Urine Appearance Urine [...] a sper (more content not included)... [facility] Patient Educationon 05-20-19 23 Patient Education Obstetrics and Gynec ology [...] this condition includes: ? Antibiotic medicine. ? Lhcl-wby-lannjpi medicines to treat discomfort. ? Drinking enough [...] these instructions at home: Medicines ? Take ezpv-dqo-ovwlrhm and prescription medicines only as told by [...] This in (more content not included)... [facility] Patient Letter FTon 2022 Patient Letter [facility] (Inserted Image. Delaney ble to display) May 19, 2022 Dear Ms Hsu, My apologies that I forgot to write this down for you at your visit today. Here are the bmwv-wqs-hxgjumm supplements I would recommend for UTI prevention: probiotics D-mannose cranberry extract You should be able to find combination products that have all 3 ingredients. Provider Signature: Malathi Vieira PA-C Physician Tax Collector [facility] [address] [place] [address] [facility] CULTURE URINEon 05-14-2022 CULTURE URINE Culture Observations [...] Trimethoprim/Sulfamethoxazol e <=20 S F Normal [facility] Comment on above: Performed By: #### U RCX #### [facility] [address] [place] [address] Dr. Anthony Bonilla UA RANDOMon 05-11-2022 Bilirubin Ql (U) Negative Normal NEGATIVE [facility] Comment on above: Performed By: #### U RCX #### [facility] [address] [place] [address] Dr. Anthony Bonilla Clarity (U) SL CLOUDY Abnormal CLEAR [facility] Comment on above: Performed By: #### U RCX #### [facility] [address] [place] [address] Dr. Anthony Bonilla Color (U) LT. YELLOW Normal YELLOW [facility] Comment on above: Performed By: #### U RCX #### [facility] [address] [place] [address] Dr. Anthony Bonilla Glucose Ql (U) Negative Normal NEGATIVE [facility] Comment on above: Performed By: #### U RCX #### [facility] [address] [place] [address] Dr. Anthony Bonilla Hemoglobin Ql (U) Negative Normal NEGATIVE [facility] Comment on above: Performed By: #### U RCX #### [facility] [address] [place] [address] Dr. Anthony Bonilla Ketones Ql (U) Negative Normal NEGATIVE [facility] Comment on above: Performed By: #### U RCX #### [facility] [address] [place] [address] Dr. Anthony Bonilla LEUKOCYTES MODERATE Abnormal NEGATIVE [facility] Comment on above: Performed By: #### U RCX #### [facility] [address] [place] [address] Dr. Anthony Bonilla Nitrite Ql (U) Negative Normal NEGATIVE [facility] Comment on above: Performed By: #### U RCX #### [facility] [address] [place] [address] Dr. Anthony Bonilla pH (U) 5.5 [pH] Normal 5-9 [facility] Comment on above: Performed By: #### U RCX #### [facility] [address] [place] [address] Dr. Anthony Bonilla SPEC GRAVITY 1.020 Normal 1.005-<=1. 025 [facility] Comment on above: Performed By: #### U RCX #### [facility] [address] [place] [address] Dr. Anthony Bonilla UA PROTEIN Negative Normal NEGATIVE/ TRACE [facility] Comment on above: Performed By: #### U RCX #### [facility] [address] [place] [address] Dr. Anthony Bonilla Urobilinogen Qn (U) 0.2 {Gen'U}/dL Normal 0.2 - 1. 0 [facility] Comment on above: Performed By: #### U RCX #### [facility] [address] [place] [address] Dr. Anthony Bonilla CULTURE URINEon 05-01-2022 CULTURE [...] Trimethoprim/Sulfamethoxazol e <=20 S F Normal [facility] Comment on above: Performed By: #### U RCX #### [facility] [address] [place] [address] Dr. Anthony Bonilla CULTURE URINEon 04-16-2022 CULTURE [...] R F Nitrofurantoin 64 I F Normal [facility] Comment on above: Performed By: #### U RCX #### [facility] [address] [place] [address] Dr. Anthony Bonilla UA RANDOMon 04-14-2022 Bilirubin Ql (U) Negative Normal NEGATIVE [facility] Comment on above: Performed By: #### U RCX #### [facility] [address] [place] [address] Dr. Anthony Bonilla Clarity (U) CLEAR Normal CLEAR [facility] Comment on above: Performed By: #### U RCX #### [facility] [address] [place] [address] Dr. Anthony Bonilla Color (U) LT. YELLOW Normal YELLOW [facility] Comment on above: Performed By: #### U RCX #### [facility] [address] [place] [address] Dr. Anthony Bonilla Glucose Ql (U) Negative Normal NEGATIVE [facility] Comment on above: Performed By: #### U RCX #### [facility] [address] [place] [address] Dr. Anthony Bonilla Hemoglobin Ql (U) Negative Normal NEGATIVE [facility] Comment on above: Performed By: #### U RCX #### [facility] [address] [place] [address] Dr. Atnhony Bonilla Ketones Ql (U) Negative Normal NEGATIVE [facility] Comment on above: Performed By: #### U RCX #### [facility] [address] [place] [address] Dr. Anthony Bonilla LEUKOCYTES MODERATE Abnormal NEGATIVE [facility] Comment on above: Performed By: #### U RCX #### [facility] [address] [place] [address] Dr. Anthony Bonilla Nitrite Ql (U) Negative Normal NEGATIVE [facility] Comment on above: Performed By: #### U RCX #### [facility] [address] [place] [address] Dr. Anthony Bonilla pH (U) 5.5 [pH] Normal 5-9 [facility] Comment on above: Performed By: #### U RCX #### [facility] [address] [place] [address] Dr. Anthony Bonilla SPEC GRAVITY 1.020 Normal 1.005-<=1. 025 [facility] Comment on above: Performed By: #### U RCX #### [facility] [address] [place] [address] Dr. Anthony Bonilla UA PROTEIN Negative Normal NEGATIVE/ TRACE [facility] Comment on above: Performed By: #### U RCX #### [facility] [address] [place] [address] Dr. Anthony Bonilla Urobilinogen Qn (U) 0.2 {Gen'U}/dL Normal 0.2 - 1. 0 [facility] Comment on above: Performed By: #### U RCX #### [facility] [address] [place] [address] Dr. Anthony Bonilla Urinalysis - DIPSTICKon -2 Appearance (U) clear [employer] Other Bilirubin Ql (U) small [employer] Other Color (U) dark yellow [employer] Other Glucose Ql (U) Negative [employer] Other Hemoglobin Ql (U) Negative [email or web address] Other Ketones Ql (U) trace [employer]FA Other Leukocyte esterase Test strip Ql (U) [employer] Other Nitrite Ql (U) Negative [employer] Other pH (U) 5.0 [pH] [employer] Other Protein Ql (U) Negative [employer] Other Specific gravity (U) [Rel density] 1.015 [employer] Other Urobilinogen (U) [Mass/Vol] 0.2 mg/dL [employer] Other Urinalysis - DIPSTICK [employer] Other Urine Cultureon 03-30-2022 Bacteria identified Cx Nom (U) ORGANISM: Yeast Like Organism (O:YLO) [place] Count 10,000 UNABLE TO ISOLATE FOR IDENTIFICATION PERFORMED BY: [place] [address] PATHOLOGIST [employer]ARK ATTENDANT TIEN VELASQUEZ M.D. Normal [facility] Comment on above: Performed By: #### C UU #### [address] Urine Culture 10,000 [employer] Other Bacteria identified Cx Nom (U) [employer] Other CULTURE URINEon 03-23-2022 CULTURE URINE Isolate 1 Pseudomonas aeruginosa >100,000 cfu/mL of ORGANISM 1 Pseudomonas aeruginosa ANTIBIOTIC M.I.C RX STATUS Piperacillin/Tazobactam 8 S F Ceftazidime 4 S F Imipenem 1 S F Amikacin <=2 S F Gentamicin <=1 S F Tobramycin <=1 S F Ciprofloxacin <=0.25 S F Levofloxacin 0.5 S F Normal [facility] Comment on above: Performed By: #### U RCX #### [facility] [address] [place] [address] Dr. Anthony Bonilla CARDIAC DARWIN ADMITon 023 CK [Catalytic activity/Vol] 137 U/L Normal 26-192 [facility] Comment on above: Performed By: #### U RCX #### [facility] [address] [place] [address] Dr. Anthony Bonilla CK.MB [Mass/Vol] 1.05 ng/mL Normal <=3.60 [facility] Comment on above: Performed By: #### U RCX #### [facility] [address] [place] [address] Dr. Anthony Bonilla HSTROP 17.6 pg/mL Normal 4.0-51.3 [facility] Comment on above: Result Comment: CUT- OFF POINTS HAVE BEEN ESTABLISHED BASED ON THE FOURTH UNIVERSAL DEFINITIONS OF MYOCARDIAL INFARCTION. THE UPPER REFERENCE LIMIT (URL) OF TROPONIN, DEFINED THE 99TH PERCENTILE OF cTnI DISTRIBUTION IN A REFERENCE POPULATION, HAS BEEN CONFIRMED THE DECISION THRESHOLD FOR [place] DIAGNOSIS. Performed By: #### U RCX #### [facility] [address] [place] [address] Dr. Anthony Bonilla CANDIDA 72 ng/mL Normal 9-82 [facility] Comment on above: Performed By: #### U RCX #### [facility] [address] [place] [address] Dr. Anthony Bonilla CBC AUTO DIFFon 03-20-2022 BASO # 0.0 103/ul Normal 0.0-0.1 [facility] Comment on above: Performed By: #### C BC #### [facility] [address] [place] [address] Dr. Anthony Bonilla Basophils/100 WBC (Bld) 0.3 % Normal 0.2-2.0 [facility] Comment on above: Performed By: #### C BC #### [facility] [address] [place] [address] Dr. Anthony Bonilla EO # 0.0 103/ul Normal 0.0-0.7 [facility] Comment on above: Performed By: #### C BC #### [facility] [address] [place] [address] Dr. Anthony Bonilla Eosinophils/100 WBC (Bld) 0.1 % Critically low 0.9-7.0 [facility] Comment on above: Performed By: #### C BC #### [facility] [address] [place] [address] Dr. Anthony Bonilla Erythrocyte distribution width (RBC) [Ratio] 15.9 % Critically high 11.0-15.0 [facility] Comment on above: Performed By: #### C BC #### [facility] [address] [place] [address] Dr. Anthony Bonilla Hematocrit (Bld) [Volume fraction] 33.6 % Critically low 36.0-48.0 [facility] Comment on above: Performed By: #### C BC #### [facility] [address] [place] [address] Dr. Anthony Bonilla Hemoglobin (Bld) [Mass/Vol] 11.2 g/dL Critically low 12.0-16.0 [facility] Comment on above: Performed By: #### C BC #### [facility] [address] [place] [address] Dr. Anthony Bonilla IG # 0.04 10e3/ul Critically high 0.00-0.03 [facility] Comment on above: Performed By: #### C BC #### [facility] [address] [place] [address] Dr. Anthony Bonilla IG % 0.3 % Normal 0.0-0.5 [facility] Comment on above: Performed By: #### C BC #### [facility] [address] [place] [address] Dr. Anthony Bonilla LYMPH # 0.8 103/ul Critically low 1.2-3.8 [facility] Comment on above: Performed By: #### C BC #### [facility] [address] [place] [address] Dr. Anthony Bonilla Lymphocytes/100 WBC (Bld) 6.4 % Critically low 20.5-60.0 [facility] Comment on above: Performed By: #### C BC #### [facility] [address] [place] [address] Dr. Anthony Bonilla MANUAL DIFF REQ NO Normal [facility] Comment on above: Performed By: #### C BC #### [facility] [address] [place] [address] Dr. Anthony Bonilla MCH (RBC) [Entitic mass] 28.9 pg Normal 26.7-34.0 [facility] Comment on above: Performed By: #### C BC #### [facility] [address] [place] [address] Dr. Anthony Bonilla MCHC (RBC) [Mass/Vol] 33.3 g/dL Normal 29.9-35.2 [facility] Comment on above: Performed By: #### C BC #### [facility] [address] [place] [address] Dr. Anthony Bonilla MCV (RBC) [Entitic vol] 86.8 fL Normal 81.0-99.0 [facility] Comment on above: Performed By: #### C BC #### [facility] [address] [place] [address] Dr. Anthony Bonilla MONO # 1.1 103/ul Critically high 0.3-0.8 [facility] Comment on above: Performed By: #### C BC #### [facility] [address] [place] [address] Dr. Anthony Bonilla Monocytes/100 WBC (Bld) 8.3 % Normal 1.7-12.0 [facility] Comment on above: Performed By: #### C BC #### [facility] [address] [place] [address] Dr. Anthony Bonilla NEUT # 11.2 103/ul Critically high 1.4-6.5 [facility] Comment on above: Performed By: #### C BC #### [facility] [address] [address] [address] Anthony Bonilla Neutrophils/100 WBC (Bld) 84.6 % Critically high 43.0-75.0 [facility] Comment on above: Performed By: #### C BC #### [facility] [id number] Anthony Bonilla Platelet mean volume (Bld) [Entitic vol] 9.7 fL Normal 9.5-13.5 [facility] Comment on above: Performed By: #### C BC #### [facility] [address] [address] [address] Anthony Bonilla PLT 274 103/ul Normal 150-450 [facility] Comment on above: Performed By: #### C BC #### [facility] [address] [address] [address] Anthony Bonilla RBC 3.87 106/ul Critically low 4.20-5.40 [facility] Comment on above: Performed By: #### C BC #### [facility] [id number] Anthony Bonilla WBC 13.2 103/ul Critically high 4.0-11.0 [facility] Comment on above: Performed By: #### C BC #### [facility] [address] [place] [address] HEAD WO CONon [...] CLAU SHAH Date: 2022-03-20 20:30 Normal [facility] URINE PROFILEon 3 Bilirubin Ql (U) Negative Normal NEGATIVE [facility] Comment on above: Performed By: #### C BC #### [facility] [address] [place] [address] Dr. Anthony Bonilla Clarity (U) CLEAR Normal CLEAR [facility] Comment on above: Performed By: #### C BC #### [facility] [address] [place] [address] Dr. Anthony Bonilla Color (U) LT. YELLOW Normal YELLOW [facility] Comment on above: Performed By: #### C BC #### [facility] [address] [place] [address] Dr. Anthony Bonilla ERUAHD A micrscopic examina tion will be performed if indicated. Normal [facility] Comment on above: Performed By: #### C BC #### [facility] [address] [place] [address] Dr. Anthony Bonilla Glucose Ql (U) Negative Normal NEGATIVE [facility] Comment on above: Performed By: #### C BC #### [facility] [address] [place] [address] Dr. Anthony Bonilla Hemoglobin Ql (U) LARGE Abnormal NEGATIVE [facility] Comment on above: Performed By: #### C BC #### [facility] [address] [place] [address] Dr. Anthony Bonilla Ketones Ql (U) Negative Normal NEGATIVE [facility] Comment on above: Performed By: #### C BC #### [facility] [address] [place] [address] Dr. Anthony Bonilla LEUKOCYTES SMALL Abnormal NEGATIVE [facility] Comment on above: Performed By: #### C BC #### [facility] [address] [place] [address] Dr. Anthony Bonilla Nitrite Ql (U) Positive Abnormal NEGATIVE [facility] Comment on above: Performed By: #### C BC #### [facility] [address] [place] [address] Dr. Anthony Bonilla pH (U) 7.0 [pH] Normal 5-9 [facility] Comment on above: Performed By: #### C BC #### [facility] [address] [place] [address] Dr. Anthony Bonilla Protein (U) [Mass/Vol] 30 mg/dL Abnormal NEGATIVE/ TRACE [facility] Comment on above: Performed By: #### C BC #### [facility] [address] [place] [address] Dr. Anthony Bonilla SPEC GRAVITY 1.015 Normal 1.005-<=1. 025 [facility] Comment on above: Performed By: #### C BC #### [facility] [address] [place] [address] Dr. Anthony Bonilla UR MICRO IND INDICATED Normal [facility] Comment on above: Performed By: #### C BC #### [facility] [address] [place] [address] Dr. Anthony Bonilla Urobilinogen Qn (U) 1.0 {Gen'U}/dL Normal 0.2 - 1. 0 [facility] Comment on above: Performed By: #### C BC #### [facility] [address] [place] [address] Dr. Anthony Bonilla PROF 14(COMP METB)on 023 Albumin [Mass/Vol] 3.4 g/dL Normal 3.4-5.0 [facility] Comment on above: Performed By: #### U RCX #### [facility] [address] [address] [address] Anthony Bonilla Albumin/Globulin [Mass ratio] 1.2 {ratio} Normal [facility] Comment on above: Performed By: #### U RCX #### [facility] [address] [address] [address] Anthony Bonilla ALP [Catalytic activity/Vol] 26 U/L Critically low 46-116 [facility] Comment on above: Performed By: #### U RCX #### [facility] [address] [address] [address] Anthony Bonilla ALT [Catalytic activity/Vol] 21 U/L Normal 14-59 [facility] Comment on above: Performed By: #### U RCX #### [facility] [address] [place] [address] Dr. Anthony Bonilla Anion gap [Moles/Vol] 13.7 mmol/L Normal [facility] Comment on above: Performed By: #### U RCX #### [facility] [address] [place] [address] Dr. Anthony Bonilla AST [Catalytic activity/Vol] 20 U/L Normal 15-37 [facility] Comment on above: Performed By: #### U RCX #### [facility] [address] [place] [address] Dr. Anthony Bonilla Bilirubin [Mass/Vol] 1.2 mg/dL Critically high 0.2-1.0 [facility] Comment on above: Performed By: #### U RCX #### [facility] [address] [place] [address] Dr. Anthony Bonilla Calcium [Mass/Vol] 9.4 mg/dL Normal 8.5-10.1 [facility] Comment on above: Performed By: #### U RCX #### [facility] [address] [place] [address] Dr. Anthony Bonilla Chloride [Moles/Vol] 99 mmol/L Normal 98-107 [facility] Comment on above: Performed By: #### U RCX #### [facility] [address] [address] [address] Anthony Bonilla CO2 [Moles/Vol] 29.1 mmol/L Normal 21.0-32.0 [facility] Comment on above: Performed By: #### U RCX #### [facility] [address] [address] [address] Anthony Bonilla Creatinine [Mass/Vol] 1.02 mg/dL Normal 0.55-1.02 [facility] Comment on above: Performed By: #### U RCX #### [facility] [address] [address] [address] Anthony Bonilla EGFR-AF URUGUAYAN >60 Normal >=60 [facility] Comment on above: Performed By: #### U RCX #### [facility] [address] [address] [address] Anthony Bonilla EGFR-NON AF URUGUAYAN 52 mL/min/1.73m2 Critically low >=60 [facility] Comment on above: Performed By: #### U RCX #### [facility] [address] [address] [address] Anthony Bonilla Globulin (S) [Mass/Vol] 2.9 g/dL Normal [facility] Comment on above: Performed By: #### U RCX #### [facility] [address] [address] [address] Anthony Bonilla Glucose [Mass/Vol] 98 mg/dL Normal 74-106 [facility] Comment on above: Performed By: #### U RCX #### [facility] [address] [address] [address] Anthony Bonilla Potassium [Moles/Vol] 3.8 mmol/L Normal 3.5-5.1 [facility] Comment on above: Performed By: #### U RCX #### [facility] [address] [address] [address] Anthony Bonilla Protein [Mass/Vol] 6.3 g/dL Critically low 6.4-8.2 [facility] Comment on above: Performed By: #### U RCX #### [facility] [address] [place] [address] Dr. Anthony Bonilla Sodium [Moles/Vol] 138 mmol/L Normal 136-145 [facility] Comment on above: Performed By: #### U RCX #### [facility] [address] [place] [address] Dr. Anthony Bonilla Urea nitrogen [Mass/Vol] 16.0 mg/dL Normal 7.0-18.0 [facility] Comment on above: Performed By: #### U RCX #### [facility] [address] [place] [address] Dr. Anthony Bonilla Urea nitrogen/Creatinine [Mass ratio] 15.7 mg/mg Normal [facility] Comment on above: Performed By: #### U RCX #### [facility] [address] [place] [address] Dr. Anthony Bonilla URINE MICROSCOPIC ONLYon BACTERIA LARGE Abnormal NONE SEEN [facility] Comment on above: Performed By: #### C BC #### [facility] [address] [place] [address] Dr. Anthony Bonilla Bacteria identified Cx Nom (U) INDICATED Normal [facility] Comment on above: Performed By: #### C BC #### [facility] [address] [place] [address] Dr. Anthony Bonilla CAST NONE SEEN Normal NONE SEEN [facility] Comment on above: Performed By: #### C BC #### [facility] [address] [place] [address] Dr. Anthony Bonilla Crystals LM Nom (Urine sed) NONE SEEN Normal NONE SEEN [facility] Comment on above: Performed By: #### C BC #### [facility] [address] [place] [address] Dr. Anthony Bonilla Epithelial cells LM Ql (Urine sed) FEW Abnormal NONE SEEN /RARE [facility] Comment on above: Performed By: #### C BC #### [facility] [address] [place] [address] Dr. Anthony Bonilla MUCOUS NONE SEEN Normal NONE SEEN [facility] Comment on above: Performed By: #### C BC #### [facility] [address] [place] [address] Dr. Anthony Bonilla RBC 10-20 Abnormal 0-2 [facility] Comment on above: Performed By: #### C BC #### [facility] [address] [place] [address] Dr. Anthony Bonilla WBC 50-75 Abnormal NONE SEEN [facility] Comment on above: Performed By: #### C BC #### [facility] [address] [place] [address] Dr. Anthony Bonilla CALPROTECTIN, FECALon 2022 Calprotectin, Fecal 416 ug/g Critically high 0-120 [facility] Comment on above: Result Comment: Conc entration Interpretation Follow-Up <16 - 50 ug/g Normal None >50 -120 ug/g Borderline Re-evaluate in 4-6 weeks >120 ug/g Abnormal Repeat as clinically indicated Performed By: #### U RCX #### [facility] [address] [place] [address] Dr. Anthony Bonilla QUANTIFERON TB GOLD PLUSon 0 02-19-2022 QuantiFERON Criteria Comment Normal [facility] Comment on above: Result Comment: Butch tiFERON-TB [...] test. Performed By: #### U RCX #### [facility] [address] [place] [address] Dr. Anthony Bonilla QuantiFERON Incubation Incubation performed. Normal [facility] Comment on above: Performed By: #### U RCX #### [facility] [address] [place] [address] Dr. Anthony Bonilla QuantiFERON Mitogen Value >10.00 Normal [facility] Comment on above: Performed By: #### U RCX #### [facility] [address] [place] [address] Dr. Anthony Bonilla QuantiFERON Nil Value 0.07 IU/mL [facility] Comment on above: Performed By: #### U RCX #### [facility] [address] [address] [address] Anthony Bonilla QuantiFERON TB1 Ag Value 0.08 IU/mL Normal [facility] Comment on above: Performed By: #### U RCX #### [facility] [address] [address] [address] Anthony Bonilla QuantiFERON TB2 Ag Value 0.07 IU/mL Normal [facility] Comment on above: Performed By: #### U RCX #### [facility] [address] [address] [address] Anthony Bonilla QuantiFERON-TB Gold Plus Negative Normal Negative [facility] Comment on above: Result Comment: No r esponse to M tuberculosis antigens detected. Infection with M tuberculosis is unlikely, but high risk individuals should be considered for additional testing (ATS/IDSA/CDC Clinical Practice Guidelines, 2017). The reference range is an Antigen minus Nil result of <0.35 IU/mL. Chemiluminescence immunoassay methodology Performed By: #### U RCX #### [facility] [address] [place] [address] Dr. Anthony Bonilla HEP B SURFACE ANTIGEN SCREEN on 02-18-2022 HBsAg Screen Negative Normal Negative [facility] Comment on above: Performed By: #### U RCX #### [facility] [address] [place] [address] Dr. Anthony Bonilla HEPATITIS B CORE, IgMon 02-08 Hep B Core Ab, IgM Negative Normal Negative [facility] Comment on above: Performed By: #### U RCX #### [facility] [address] [place] [address] Dr. Anthony Bonilla HEPATITIS B SURFACE ANTIBODY , QUANTon 02-18-2022 Hepatitis B Surf AB Quant <3.1 Critically low Immunity>9 .9 [facility] Comment on above: Result Comment: Stat us of Immunity Anti-HBs Level Inconsistent with Immunity 0.0 - 9.9 Consistent with Immunity >9.9 Performed By: #### C BC #### [facility] [address] [place] [address] Dr. Anthony Bonilla CBC AUTO DIFFon 02-17-2022 BASO # 0.0 103/ul Normal 0.0-0.1 [facility] Comment on above: Performed By: #### U RCX #### [facility] [address] [place] [address] Dr. Anthony Bonilla Basophils/100 WBC (Bld) 0.4 % Normal 0.2-2.0 [facility] Comment on above: Performed By: #### U RCX #### [facility] [address] [place] [address] Dr. Anthony Bonilla EO # 0.0 103/ul Normal 0.0-0.7 [facility] Comment on above: Performed By: #### U RCX #### [facility] [address] [place] [address] Dr. Anthony Bonilla Eosinophils/100 WBC (Bld) 0.5 % Critically low 0.9-7.0 [facility] Comment on above: Performed By: #### U RCX #### [facility] [address] [place] [address] Dr. Anthony Bonilla Erythrocyte distribution width (RBC) [Ratio] 14.7 % Normal 11.0-15.0 [facility] Comment on above: Performed By: #### U RCX #### [facility] [address] [place] [address] Dr. Anthony Bonilla Hematocrit (Bld) [Volume fraction] 33.2 % Critically low 36.0-48.0 [facility] Comment on above: Performed By: #### U RCX #### [facility] [address] [place] [address] Dr. Anthony Bonilla Hemoglobin (Bld) [Mass/Vol] 11.0 g/dL Critically low 12.0-16.0 [facility] Comment on above: Performed By: #### U RCX #### [facility] [address] [place] [address] Dr. Anthony Bonilla IG # 0.02 10e3/ul Normal 0.00-0.03 [facility] Comment on above: Performed By: #### U RCX #### [facility] [address] [place] [address] Dr. Anthony Bonilla IG % 0.2 % Normal 0.0-0.5 [facility] Comment on above: Performed By: #### U RCX #### [facility] [address] [place] [address] Dr. Anthony Bonilla LYMPH # 1.3 103/ul Normal 1.2-3.8 [facility] Comment on above: Performed By: #### U RCX #### [facility] [address] [place] [address] Dr. Anthony Bonilla Lymphocytes/100 WBC (Bld) 14.8 % Critically low 20.5-60.0 [facility] Comment on above: Performed By: #### U RCX #### [facility] [address] [place] [address] Dr. Anthony Bonilla MANUAL DIFF REQ NO Normal [facility] Comment on above: Performed By: #### U RCX #### [facility] [address] [place] [address] Dr. Anthony Bonilla MCH (RBC) [Entitic mass] 29.0 pg Normal 26.7-34.0 [facility] Comment on above: Performed By: #### U RCX #### [facility] [address] [place] [address] Dr. Anthony Bonilla MCHC (RBC) [Mass/Vol] 33.1 g/dL Normal 29.9-35.2 [facility] Comment on above: Performed By: #### U RCX #### [facility] [address] [place] [address] Dr. Anthony Bonilla MCV (RBC) [Entitic vol] 87.6 fL Normal 81.0-99.0 [facility] Comment on above: Performed By: #### U RCX #### [facility] [address] [place] [address] Dr. Anthony Bonilla MONO # 0.8 103/ul Normal 0.3-0.8 [facility] Comment on above: Performed By: #### U RCX #### [facility] [address] [place] [address] Dr. Anthony Bonilla Monocytes/100 WBC (Bld) 9.6 % Normal 1.7-12.0 [facility] Comment on above: Performed By: #### U RCX #### [facility] [address] [place] [address] Dr. Anthony Bonilla NEUT # 6.3 103/ul Normal 1.4-6.5 [facility] Comment on above: Performed By: #### U RCX #### [facility] [address] [place] [address] Dr. Anthony Bonilla Neutrophils/100 WBC (Bld) 74.5 % Normal 43.0-75.0 [facility] Comment on above: Performed By: #### U RCX #### [facility] [address] [place] [address] Dr. Anthony Bonilla Platelet mean volume (Bld) [Entitic vol] 9.8 fL Normal 9.5-13.5 [facility] Comment on above: Performed By: #### U RCX #### [facility] [address] [place] [address] Dr. Anthony Bonilla PLT 318 103/ul Normal 150-450 [facility] Comment on above: Performed By: #### U RCX #### [facility] [address] [place] [address] Dr. Anthony Bonilla RBC 3.79 106/ul Critically low 4.20-5.40 [facility] Comment on above: Performed By: #### U RCX #### [facility] [address] [place] [address] Dr. Anthony Bonilla WBC 8.5 103/ul Normal 4.0-11.0 [facility] Comment on above: Performed By: #### U RCX #### [facility] [address] [place] [address] Dr. Anthony Bonilla PROF 14(COMP METB)on 023 Albumin [Mass/Vol] 3.6 g/dL Normal 3.4-5.0 [facility] Comment on above: Performed By: #### U RCX #### [facility] [address] [place] [address] Dr. Anthony Bonilla Albumin/Globulin [Mass ratio] 1.2 {ratio} Normal [facility] Comment on above: Performed By: #### U RCX #### [facility] [address] [address] [address] Anthony Bonilla ALP [Catalytic activity/Vol] 27 U/L Critically low 46-116 Access [facility] Comment on above: Performed By: #### U RCX #### [facility] [address] [place] [address] Dr. Anthony Bonilla ALT [Catalytic activity/Vol] 21 U/L Normal 14-59 [facility] Comment on above: Performed By: #### U RCX #### [facility] [address] [address] [address] Anthony Bonilla Anion gap [Moles/Vol] 13.5 mmol/L Normal [facility] Comment on above: Performed By: #### U RCX #### [facility] [address] [place] [address] Dr. Anthony Bonilla AST [Catalytic activity/Vol] 19 U/L Normal 15-37 [facility] Comment on above: Performed By: #### U RCX #### [facility] [address] [place] [address] Dr. Anthony Bonilla Bilirubin [Mass/Vol] 0.6 mg/dL Normal 0.2-1.0 [facility] Comment on above: Performed By: #### U RCX #### [facility] [address] [address] [address] Anthony Bonilla Calcium [Mass/Vol] 9.2 mg/dL Normal 8.5-10.1 [facility] Comment on above: Performed By: #### U RCX #### [facility] [address] [place] [address] Dr. Anthony Bonilla Chloride [Moles/Vol] 104 mmol/L Normal 98-107 [facility] Comment on above: Performed By: #### U RCX #### [facility] [address] [address] [address] Anthony Bonilla CO2 [Moles/Vol] 28.9 mmol/L Normal 21.0-32.0 [facility] Comment on above: Performed By: #### U RCX #### [facility] [address] [address] [address] Anthony Bonilla Creatinine [Mass/Vol] 1.21 mg/dL Critically high 0.55-1.02 [facility] Comment on above: Performed By: #### U RCX #### [facility] [address] [address] [address] Anthony Bonilla EGFR-AF URUGUAYAN 51 mL/min/1.73m2 Critically low >=60 [facility] Comment on above: Performed By: #### U RCX #### [facility] [address] [address] [address] Anthony Bonilla EGFR-NON AF URUGUAYAN 42 mL/min/1.73m2 Critically low >=60 [facility] Comment on above: Performed By: #### U RCX #### [facility] [address] [address] [address] Anthony Bonilla Globulin (S) [Mass/Vol] 3.1 g/dL Normal [facility] Comment on above: Performed By: #### U RCX #### [facility] [address] [address] [address] Anthony Bonilla Glucose [Mass/Vol] 107 mg/dL Critically high 74-106 [facility] Comment on above: Performed By: #### U RCX #### [facility] [address] [address] [address] Anthony Bonilla Potassium [Moles/Vol] 3.4 mmol/L Critically low 3.5-5.1 [facility] Comment on above: Performed By: #### U RCX #### [facility] [address] [address] [address] Anthony Bonilla Protein [Mass/Vol] 6.7 g/dL Normal 6.4-8.2 [facility] Comment on above: Performed By: #### U RCX #### [facility] [address] [address] [address] Anthony Bonilla Sodium [Moles/Vol] 143 mmol/L Normal 136-145 [facility] Comment on above: Performed By: #### U RCX #### [facility] [address] [address] [address] Anthony Bonilla Urea nitrogen [Mass/Vol] 22.0 mg/dL Critically high 7.0-18.0 [facility] Comment on above: Performed By: #### U RCX #### [facility] [address] [address] [address] Anthony Bonilla Urea nitrogen/Creatinine [Mass ratio] 18.2 mg/mg Normal [facility] Comment on above: Performed By: #### U RCX #### [facility] [address] [address] [address] Anthony Bonilla Automated erythrocytes count in urine sediment (number/area)Ordered By: Gypsy Mcmahon on 02-16-2022 RBC Auto (Urine sed) [#/Area] 0-1 [HPF] 0-4 [facility] Automated leukocytes count i n urine sediment (number/area)Ordered By: Gypsy Mcmahon on 02-16-2022 WBC Auto (Urine sed) [#/Area] 20-49 [HPF] 0-4 [facility] Bilirubin Test strip Ql (U)O rdered By: Gypsy Mcmahon on 02-16-2022 Bilirubin Ql (U) Negative Negative [facility] Color Auto (U)Ordered By: Nicole Mcmahon on 02-16-2022 Color (U) Yellow Yellow [facility] Ketones Auto test strip (U) [Mass/Vol]Ordered By: Gypsy Mcmahon on 02-16-2022 Ketones (U) [Mass/Vol] Trace Negative [facility] - UrinalysisOrder ed By: Gypsy Mcmahno on 02-16-2022 Hyaline casts LM Ql (Urine sed) 9-19 [LPF] 0-8 [facility] Nitrite Test strip Ql (U)Ord ered By: Gypsy Mcmahon on 02-16-2022 Nitrite Ql (U) Positive Negative [facility] Protein Auto test strip (U) [Mass/Vol]Ordered By: Gypsy Mcmahon on 02-16-2022 Protein (U) [Mass/Vol] Negative Negative [facility] Specific gravity Auto test s trip (U) [Rel density]Ordered By: Gypsy Mcmahon on 02-16-2022 Specific gravity (U) [Rel density] 1.018 1.001-1.03 0 [facility] Squamous epithelial cells de tection in urine sediment by light microscopyOrdered By: Gypsy Mcmahon on 02-16-2022 Epithelial cells.squamous LM Ql (Urine sed) 5-9 [HPF] 0-2 [facility] Urine Cultureon 02-16-2022 Urine Culture >100,000 [employer] Other Urine Culture <16 Susceptible VFA Other Urine Culture <8/4 Susceptible VFA Other Urine Culture <4 Susceptible VFA Other Urine Culture <2 Susceptible VFA Other Urine Culture <1 Susceptible VFA Other Urine Culture <0.25 Susceptible VFA Other Urine Culture <0.5 Susceptible VFA Other Urine Culture <32 Susceptible VFA Other Urine Culture <0.5/9.5 Susceptible VFA Other Urine bacteria detection by automated methodOrdered By: Gypsy Mcmahon on 02-16-2022 Bacteria Auto Ql (U) 2+ None Seen [facility] Urine clarity by refractomet ry automatedOrdered By: Gypsy Mcmahon on 02-16-2022 Clarity Refractometry automated (U) Cloudy Clear [facility] Urine culture routineOrdered By: Gypsy Mcmahon on 02-16-2022 Bacteria identified Cx Nom (U) Klebsiella variicola [facility] Urine glucose measurement by automated test strip (mass/volume)Ordered By: Gypsy Mcmahon on 02-16-2022 Glucose Auto test strip (U) [Mass/Vol] Normal mg/dL Normal [facility] Urine hemoglobin detection b y automated test stripOrdered By: Gypsy Mcmahon on 02-16-2022 Hemoglobin Auto test strip Ql (U) Negative Negative [facility] Urine leukocyte esterase det ection by automated test stripOrdered By: Gypsy Mcmahon on 02-16-2022 Leukocyte esterase Auto test strip Ql (U) 2+ Negative [facility] Urobilinogen Auto test strip (U) [Mass/Vol]Ordered By: Gypsy Mcmahon on 02-16-2022 Urobilinogen (U) [Mass/Vol] Normal mg/dL Normal [facility] pH Auto test strip (U)Ordere d By: Gypsy Mcmahon on 02-16-2022 pH (U) 5.5 [pH] 5.0-9.0 [facility] CBC AUTO DIFFon 01-15-2022 BASO # 0.0 103/ul Normal 0.0-0.1 [facility] Comment on above: Performed By: #### C BC #### [facility] [address] [place] [address] Dr. Anthony Bonilla Basophils/100 WBC (Bld) 0.5 % Normal 0.2-2.0 [facility] Comment on above: Performed By: #### C BC #### [facility] [address] [place] [address] Dr. Anthony Bonilla EO # 0.1 103/ul Normal 0.0-0.7 [facility] Comment on above: Performed By: #### C BC #### [facility] [address] [address] [address] Anthony Bonilla Eosinophils/100 WBC (Bld) 0.9 % Normal 0.9-7.0 [facility] Comment on above: Performed By: #### C BC #### [facility] [address] [place] [address] Dr. Anthony Bonilla Erythrocyte distribution width (RBC) [Ratio] 14.8 % Normal 11.0-15.0 [facility] Comment on above: Performed By: #### C BC #### [facility] [address] [place] [address] Dr. Anthony Bonilla Hematocrit (Bld) [Volume fraction] 30.3 % Critically low 36.0-48.0 [facility] Comment on above: Performed By: #### C BC #### [facility] [address] [place] [address] Dr. Anthony Bonilla Hemoglobin (Bld) [Mass/Vol] 9.8 g/dL Critically low 12.0-16.0 [facility] Comment on above: Performed By: #### C BC #### [facility] [address] [place] [address] Dr. Anthony Bonilla IG # 0.03 10e3/ul Normal 0.00-0.03 [facility] Comment on above: Performed By: #### C BC #### [facility] [address] [place] [address] Dr. Anthony Bonilla IG % 0.3 % Normal 0.0-0.5 [facility] Comment on above: Performed By: #### C BC #### [facility] [address] [place] [address] Dr. Anthony Bonilla LYMPH # 1.4 103/ul Normal 1.2-3.8 [facility] Comment on above: Performed By: #### C BC #### [facility] [address] [place] [address] Dr. Anthony Bonilla Lymphocytes/100 WBC (Bld) 15.7 % Critically low 20.5-60.0 [facility] Comment on above: Performed By: #### C BC #### [facility] [address] [place] [address] Dr. Anthony Bonilla MANUAL DIFF REQ NO Normal [facility] Comment on above: Performed By: #### C BC #### [facility] [address] [place] [address] Dr. Anthony Bonilla MCH (RBC) [Entitic mass] 30.0 pg Normal 26.7-34.0 [facility] Comment on above: Performed By: #### C BC #### [facility] [address] [address] [address] Anthony Bonilla MCHC (RBC) [Mass/Vol] 32.3 g/dL Normal 29.9-35.2 [facility] Comment on above: Performed By: #### C BC #### [facility] [address] [address] [address] Anthony Bonilla MCV (RBC) [Entitic vol] 92.7 fL Normal 81.0-99.0 [facility] Comment on above: Performed By: #### C BC #### [facility] [address] [address] [address] Anthony Bonilla MONO # 1.1 103/ul Critically high 0.3-0.8 [facility] Comment on above: Performed By: #### C BC #### [facility] [address] [place] [address] Dr. Anthony Bonilla Monocytes/100 WBC (Bld) 12.0 % Normal 1.7-12.0 [facility] Comment on above: Performed By: #### C BC #### [facility] [address] [address] [address] Anthony Bonilla NEUT # 6.2 103/ul Normal 1.4-6.5 [facility] Comment on above: Performed By: #### C BC #### [facility] [address] [place] [address] Dr. Anthony Bonilla Neutrophils/100 WBC (Bld) 70.6 % Normal 43.0-75.0 [facility] Comment on above: Performed By: #### C BC #### [facility] [address] [address] [address] Anthony Bonilla Platelet mean volume (Bld) [Entitic vol] 9.8 fL Normal 9.5-13.5 [facility] Comment on above: Performed By: #### C BC #### [facility] [address] [address] [address] Anthony Bonilla PLT 305 103/ul Normal 150-450 [facility] Comment on above: Performed By: #### C BC #### [facility] [address] [address] [address] Anthony Bonilla RBC 3.27 106/ul Critically low 4.20-5.40 [facility] Comment on above: Performed By: #### C BC #### [facility] [address] [address] [address] Anthony Bonilla WBC 8.7 103/ul Normal 4.0-11.0 [facility] Comment on above: Performed By: #### C BC #### [facility] [address] [address] [address] Anthony Bonilla PROF CHEM 8 (BAS METB)on Anion gap [Moles/Vol] 12.2 mmol/L Normal [facility] Comment on above: Performed By: #### U RCX #### [facility] [address] [place] [address] Dr. Anthony Bonilla Calcium [Mass/Vol] 9.1 mg/dL Normal 8.5-10.1 [facility] Comment on above: Performed By: #### U RCX #### [facility] [address] [address] [address] Anthony Bonilla Chloride [Moles/Vol] 104 mmol/L Normal 98-107 [facility] Comment on above: Performed By: #### U RCX #### [facility] [address] [place] [address] Dr. Anthony Bonilla CO2 [Moles/Vol] 24.4 mmol/L Normal 21.0-32.0 [facility] Comment on above: Performed By: #### U RCX #### [facility] [address] [address] [address] Anthony Bonilla Creatinine [Mass/Vol] 1.20 mg/dL Critically high 0.55-1.02 [facility] Comment on above: Performed By: #### U RCX #### [facility] [address] [place] [address] Dr. Anthony Bonilla EGFR-AF URUGUAYAN 52 mL/min/1.73m2 Critically low >=60 [facility] Comment on above: Performed By: #### U RCX #### [facility] [address] [address] [address] Anthony Bonilla EGFR-NON AF URUGUAYAN 43 mL/min/1.73m2 Critically low >=60 [facility] Comment on above: Performed By: #### U RCX #### [facility] [address] [address] [address] Anthony Bonilla Glucose [Mass/Vol] 81 mg/dL Normal 74-106 [facility] Comment on above: Performed By: #### U RCX #### [facility] [address] [address] [address] Anthony Bonilla Potassium [Moles/Vol] 3.6 mmol/L Normal 3.5-5.1 [facility] Comment on above: Performed By: #### U RCX #### [facility] [address] [address] [address] Anthony Bonilla Sodium [Moles/Vol] 137 mmol/L Normal 136-145 [facility] Comment on above: Performed By: #### U RCX #### [facility] [address] [address] [address] Anthony Bonilla Urea nitrogen [Mass/Vol] 21.0 mg/dL Critically high 7.0-18.0 [facility] Comment on above: Performed By: #### U RCX #### [facility] [address] [address] [address] Anthony Bonilla Urea nitrogen/Creatinine [Mass ratio] 17.5 mg/mg Normal [facility] Comment on above: Performed By: #### U RCX #### [facility] [address] [address] [address] Anthony Bonilla CULTURE URINEon 12-29-2021 CULTURE [...] Trimethoprim/Sulfamethoxazol e <=20 S F Normal [facility] Comment on above: Performed By: #### U RCX #### [facility] [address] [place] [address] Dr. Anthony Bonilla ER URINE PROFILEon 2 Bilirubin Ql (U) SMALL Abnormal NEGATIVE [facility] Comment on above: Performed By: #### C BC #### [facility] [address] [place] [address] Dr. Anthony Bonilla Clarity (U) SL CLOUDY Abnormal CLEAR [facility] Comment on above: Performed By: #### C BC #### [facility] [address] [place] [address] Dr. Anthony Bonilla Color (U) YELLOW Normal YELLOW [facility] Comment on above: Performed By: #### C BC #### [facility] [address] [place] [address] Dr. Anthony Bonilla ERUAHD A micrscopic examina tion will be performed if indicated. Normal [facility] Comment on above: Performed By: #### C BC #### [facility] [address] [place] [address] Dr. Anthony Bonilla Glucose Ql (U) Negative Normal NEGATIVE [facility] Comment on above: Performed By: #### C BC #### [facility] [address] [place] [address] Dr. Anthony Bonilla Hemoglobin Ql (U) Negative Normal NEGATIVE [facility] Comment on above: Performed By: #### C BC #### [facility] [address] [place] [address] Dr. Anthony Bonilla Ketones Ql (U) TRACE Abnormal NEGATIVE [facility] Comment on above: Performed By: #### C BC #### [facility] [address] [place] [address] Dr. Anthony Bonilla LEUKOCYTES MODERATE Abnormal NEGATIVE [facility] Comment on above: Performed By: #### C BC #### [facility] [address] [place] [address] Dr. Anthony Bonilla Nitrite Ql (U) Positive Abnormal NEGATIVE [facility] Comment on above: Performed By: #### C BC #### [facility] [address] [place] [address] Dr. Anthony Bonilla pH (U) 7.5 [pH] Normal 5-9 [facility] Comment on above: Performed By: #### C BC #### [facility] [address] [place] [address] Dr. Anthony Bonilla Protein (U) [Mass/Vol] 30 mg/dL Abnormal NEGATIVE/ TRACE [facility] Comment on above: Performed By: #### C BC #### [facility] [address] [place] [address] Dr. Anthony Bonilla SPEC GRAVITY 1.020 Normal 1.005-<=1. 025 [facility] Comment on above: Performed By: #### C BC #### [facility] [address] [place] [address] Dr. Anthony Bonilla UR MICRO IND INDICATED Normal [facility] Comment on above: Performed By: #### C BC #### [facility] [address] [place] [address] Dr. Anthony Bonilla Urobilinogen Qn (U) 0.2 {Gen'U}/dL Normal 0.2 - 1. 0 [facility] Comment on above: Performed By: #### C BC #### [facility] [address] [place] [address] Dr. Anthony Bonilla URINE MICROSCOPIC ONLYon BACTERIA TRACE Abnormal NONE SEEN [facility] Comment on above: Performed By: #### C BC #### [facility] [address] [place] [address] Dr. Anthony Bonilla Bacteria identified Cx Nom (U) INDICATED Normal [facility] Comment on above: Performed By: #### C BC #### [facility] [address] [place] [address] Dr. Anthony Bonilla CAST NONE SEEN Normal NONE SEEN [facility] Comment on above: Performed By: #### C BC #### [facility] [address] [place] [address] Dr. Anthony Bonilla Crystals LM Nom (Urine sed) NONE SEEN Normal NONE SEEN [facility] Comment on above: Performed By: #### C BC #### [facility] [address] [place] [address] Dr. Anthony Bonilla Epithelial cells LM Ql (Urine sed) FEW Abnormal NONE SEEN /RARE [facility] Comment on above: Performed By: #### C BC #### [facility] [address] [place] [address] Dr. Anthony Bonilla MUCOUS NONE SEEN Normal NONE SEEN [facility] Comment on above: Performed By: #### C BC #### [facility] [address] [place] [address] Dr. Anthony Bonilla RBC 0-2 Normal 0-2 [facility] Comment on above: Performed By: #### C BC #### [facility] [address] [place] [address] Dr. Anthony Bonilla WBC 5-10 Abnormal NONE SEEN [facility] Comment on above: Performed By: #### C BC #### [facility] [address] [place] [address] Dr. Anthony Bonilla PRBC LEUKOREDUCEDon 11-20-19 PRBC LEUKOREDUCED Cross Match Result Compatible Unit Blood Type A Pos Unit Number [id number] Status Information Transfused Product ID Red Blood Cells Product Code [id number] Normal [facility] Comment on above: Performed By: #### P RBC #### [facility] [address] [address] [address] Anthony Bonilla CBC AUTO DIFFon 11-10-2021 BASO # 0.0 103/ul Normal 0.0-0.1 [facility] Comment on above: Performed By: #### C BC #### [facility] [address] [address] [address] Anthony Bonilla Basophils/100 WBC (Bld) 0.7 % Normal 0.2-2.0 [facility] Comment on above: Performed By: #### C BC #### [facility] [address] [address] [address] Anthony Bonilla EO # 0.2 103/ul Normal 0.0-0.7 [facility] Comment on above: Performed By: #### C BC #### [facility] [address] [place] [address] Dr. Anthony Bonilla Eosinophils/100 WBC (Bld) 2.7 % Normal 0.9-7.0 [facility] Comment on above: Performed By: #### C BC #### [facility] [address] [place] [address] Dr. Anthony Bonilla Erythrocyte distribution width (RBC) [Ratio] 16.3 % Critically high 11.0-15.0 [facility] Comment on above: Performed By: #### C BC #### [facility] [address] [place] [address] Dr. Anthony Bonilla Hematocrit (Bld) [Volume fraction] 29.0 % Critically low 36.0-48.0 [facility] Comment on above: Performed By: #### C BC #### [facility] [address] [place] [address] Dr. Anthony Bonilla Hemoglobin (Bld) [Mass/Vol] 9.4 g/dL Critically low 12.0-16.0 [facility] Comment on above: Performed By: #### C BC #### [facility] [address] [place] [address] Dr. Anthony Bonilla IG # 0.04 10e3/ul Critically high 0.00-0.03 [facility] Comment on above: Performed By: #### C BC #### [facility] [address] [place] [address] Dr. Anthony Bonilla IG % 0.7 % Critically high 0.0-0.5 [facility] Comment on above: Performed By: #### C BC #### [facility] [address] [place] [address] Dr. Anthony Bonilla LYMPH # 1.2 103/ul Normal 1.2-3.8 [facility] Comment on above: Performed By: #### C BC #### [facility] [address] [place] [address] Dr. Anthony Bonilla Lymphocytes/100 WBC (Bld) 21.5 % Normal 20.5-60.0 [facility] Comment on above: Performed By: #### C BC #### [facility] [address] [place] [address] Dr. Anthony Bonilla MANUAL DIFF REQ NO Normal [facility] Comment on above: Performed By: #### C BC #### [facility] [address] [place] [address] Dr. Anthony Bonilla MCH (RBC) [Entitic mass] 32.3 pg Normal 26.7-34.0 [facility] Comment on above: Performed By: #### C BC #### [facility] [address] [place] [address] Dr. Anthony Bonilla MCHC (RBC) [Mass/Vol] 32.4 g/dL Normal 29.9-35.2 [facility] Comment on above: Performed By: #### C BC #### [facility] [address] [place] [address] Dr. Anthony Bonilla MCV (RBC) [Entitic vol] 99.7 fL Critically high 81.0-99.0 [facility] Comment on above: Performed By: #### C BC #### [facility] [address] [place] [address] Dr. Anthony Bonilla MONO # 0.7 103/ul Normal 0.3-0.8 [facility] Comment on above: Performed By: #### C BC #### [facility] [address] [address] [address] Anthony Bonilla Monocytes/100 WBC (Bld) 12.6 % Critically high 1.7-12.0 [facility] Comment on above: Performed By: #### C BC #### [facility] [address] [address] [address] Anthony Bonilla NEUT # 3.4 103/ul Normal 1.4-6.5 [facility] Comment on above: Performed By: #### C BC #### [facility] [address] [address] [address] Anthony Bonilla Neutrophils/100 WBC (Bld) 61.8 % Normal 43.0-75.0 [facility] Comment on above: Performed By: #### C BC #### [facility] [address] [place] [address] Dr. Anthony Bonilla Platelet mean volume (Bld) [Entitic vol] 9.0 fL Critically low 9.5-13.5 [facility] Comment on above: Performed By: #### C BC #### [facility] [address] [place] [address] Dr. Anthony Bonilla PLT 429 103/ul Normal 150-450 [facility] Comment on above: Performed By: #### C BC #### [facility] [address] [place] [address] Dr. Anthony Bonilla RBC 2.91 106/ul Critically low 4.20-5.40 [facility] Comment on above: Performed By: #### C BC #### [facility] [address] [place] [address] Dr. Anthony Bonilla WBC 5.5 103/ul Normal 4.0-11.0 [facility] Comment on above: Performed By: #### C BC #### [facility] [address] [place] [address] Dr. Anthony Bonilla PROF CHEM 8 (BAS METB)on Anion gap [Moles/Vol] 11.0 mmol/L Normal [facility] Comment on above: Performed By: #### B MP #### [facility] [address] [address] [address] Anthony Bonilla Calcium [Mass/Vol] 9.2 mg/dL Normal 8.5-10.1 [facility] Comment on above: Performed By: #### B MP #### [facility] [address] [address] [address] Anthony Bonilla Chloride [Moles/Vol] 107 mmol/L Normal 98-107 [facility] Comment on above: Performed By: #### B MP #### [facility] [address] [address] [address] Anthony Bonilla CO2 [Moles/Vol] 27.4 mmol/L Normal 21.0-32.0 [facility] Comment on above: Performed By: #### B MP #### [facility] [address] [address] [address] Anthony Bonilla Creatinine [Mass/Vol] 1.12 mg/dL Critically high 0.55-1.02 [facility] Comment on above: Performed By: #### B MP #### [facility] [address] [address] [address] Anthony Bonilla EGFR-AF URUGUAYAN 56 mL/min/1.73m2 Critically low >=60 [facility] Comment on above: Performed By: #### B MP #### [facility] [address] [address] [address] Anthony Bonilla EGFR-NON AF URUGUAYAN 46 mL/min/1.73m2 Critically low >=60 [facility] Comment on above: Performed By: #### B MP #### [facility] [address] [address] [address] Anthony Bonilla Glucose [Mass/Vol] 89 mg/dL Normal 74-106 [facility] Comment on above: Performed By: #### B MP #### [facility] [address] [address] [address] Anthony Bonilla Potassium [Moles/Vol] 4.4 mmol/L Normal 3.5-5.1 [facility] Comment on above: Performed By: #### B MP #### [facility] [address] [address] [address] Anthony Bonilla Sodium [Moles/Vol] 141 mmol/L Normal 136-145 [facility] Comment on above: Performed By: #### B MP #### [facility] [address] [place] [address] Dr. Anthony Bonilla Urea nitrogen [Mass/Vol] 18.0 mg/dL Normal 7.0-18.0 [facility] Comment on above: Performed By: #### B MP #### [facility] [address] [place] [address] Dr. Anthony Bonilla Urea nitrogen/Creatinine [Mass ratio] 16.1 mg/mg Normal [facility] Comment on above: Performed By: #### B MP #### [facility] [address] [place] [address] Dr. Anthony Bonilla CBC AUTO DIFFon 11-04-2021 BASO # 0.0 103/ul Normal 0.0-0.1 [facility] Comment on above: Performed By: #### C BC #### [facility] [address] [place] [address] Dr. Anthony Bonilla Basophils/100 WBC (Bld) 0.2 % Normal 0.2-2.0 [facility] Comment on above: Performed By: #### C BC #### [facility] [address] [place] [address] Dr. Anthony Bonilla EO # 0.1 103/ul Normal 0.0-0.7 [facility] Comment on above: Performed By: #### C BC #### [facility] [address] [place] [address] Dr. Anthony Bonilla Eosinophils/100 WBC (Bld) 0.8 % Critically low 0.9-7.0 [facility] Comment on above: Performed By: #### C BC #### [facility] [address] [place] [address] Dr. Anthony Bonilla Erythrocyte distribution width (RBC) [Ratio] 16.7 % Critically high 11.0-15.0 [facility] Comment on above: Performed By: #### C BC #### [facility] [address] [place] [address] Dr. Anthony Bonilla Hematocrit (Bld) [Volume fraction] 25.6 % Critically low 36.0-48.0 [facility] Comment on above: Performed By: #### C BC #### [facility] [address] [place] [address] Dr. Anthony Bonilla Hemoglobin (Bld) [Mass/Vol] 8.5 g/dL Critically low 12.0-16.0 [facility] Comment on above: Performed By: #### C BC #### [facility] [address] [place] [address] Dr. Anthony Bonilla IG # 0.05 10e3/ul Critically high 0.00-0.03 [facility] Comment on above: Performed By: #### C BC #### [facility] [address] [place] [address] Dr. Anthony Bonilla IG % 0.5 % Normal 0.0-0.5 [facility] Comment on above: Performed By: #### C BC #### [facility] [address] [place] [address] Dr. Anthony Bonilla LYMPH # 0.6 103/ul Critically low 1.2-3.8 [facility] Comment on above: Performed By: #### C BC #### [facility] [address] [place] [address] Dr. Anthony Bonilla Lymphocytes/100 WBC (Bld) 6.2 % Critically low 20.5-60.0 [facility] Comment on above: Performed By: #### C BC #### [facility] [address] [place] [address] Dr. Anthony Bonilla MANUAL DIFF REQ NO Normal [facility] Comment on above: Performed By: #### C BC #### [facility] [address] [place] [address] Dr. Anthony Bonilla MCH (RBC) [Entitic mass] 31.6 pg Normal 26.7-34.0 [facility] Comment on above: Performed By: #### C BC #### [facility] [address] [place] [address] Dr. Anthony Bonilla MCHC (RBC) [Mass/Vol] 33.2 g/dL Normal 29.9-35.2 [facility] Comment on above: Performed By: #### C BC #### [facility] [address] [address] [address] Anthony Bonilla MCV (RBC) [Entitic vol] 95.2 fL Normal 81.0-99.0 [facility] Comment on above: Performed By: #### C BC #### [facility] [address] [address] [address] Anthony Bonilla MONO # 0.6 103/ul Normal 0.3-0.8 [facility] Comment on above: Performed By: #### C BC #### [facility] [address] [place] [address] Dr. Anthony Bonilla Monocytes/100 WBC (Bld) 6.1 % Normal 1.7-12.0 [facility] Comment on above: Performed By: #### C BC #### [facility] [address] [place] [address] Dr. Anthony Bonilla NEUT # 8.8 103/ul Critically high 1.4-6.5 [facility] Comment on above: Performed By: #### C BC #### [facility] [address] [place] [address] Dr. Anthony Bonilla Neutrophils/100 WBC (Bld) 86.2 % Critically high 43.0-75.0 [facility] Comment on above: Performed By: #### C BC #### [facility] [address] [place] [address] Dr. Anthony Bonilla Platelet mean volume (Bld) [Entitic vol] 9.8 fL Normal 9.5-13.5 [facility] Comment on above: Performed By: #### C BC #### [facility] [address] [place] [address] Dr. Anthony Bonilla PLT 156 103/ul Normal 150-450 [facility] Comment on above: Performed By: #### C BC #### [facility] [address] [place] [address] Dr. Anthony Bonilla RBC 2.69 106/ul Critically low 4.20-5.40 [facility] Comment on above: Performed By: #### C BC #### [facility] [address] [place] [address] Dr. Anthony Bonilla WBC 10.3 103/ul Normal 4.0-11.0 [facility] Comment on above: Performed By: #### C BC #### [facility] [address] [place] [address] Dr. Anthony Bonilla CULTURE URINEon 11-04-2021 CULTURE [...] F Trimethoprim/Sulfamethoxazol e <=20 S F Normal [facility] Comment on above: Performed By: #### U RCX #### [facility] [address] [place] [address] Dr. Anthony Bonilla PROF CHEM 8 (BAS METB)on Anion gap [Moles/Vol] 12.9 mmol/L Normal [facility] Comment on above: Performed By: #### U RCX #### [facility] [address] [place] [address] Dr. Anthony Bonilla Calcium [Mass/Vol] 8.6 mg/dL Normal 8.5-10.1 [facility] Comment on above: Performed By: #### U RCX #### [facility] [address] [place] [address] Dr. Anthony Bonilla Chloride [Moles/Vol] 108 mmol/L Critically high 98-107 [facility] Comment on above: Performed By: #### U RCX #### [facility] [address] [address] [address] Anthony Bonilla CO2 [Moles/Vol] 23.1 mmol/L Normal 21.0-32.0 [facility] Comment on above: Performed By: #### U RCX #### [facility] [address] [address] [address] Anthony Bonilla Creatinine [Mass/Vol] 0.98 mg/dL Normal 0.55-1.02 [facility] Comment on above: Performed By: #### U RCX #### [facility] [address] [address] [address] Anthony Bonilla EGFR-AF URUGUAYAN >60 Normal >=60 [facility] Comment on above: Performed By: #### U RCX #### [facility] [address] [address] [address] Anthony Bonilla EGFR-NON AF URUGUAYAN 54 mL/min/1.73m2 Critically low >=60 [facility] Comment on above: Performed By: #### U RCX #### [facility] [address] [address] [address] Anthony Bonilla Glucose [Mass/Vol] 86 mg/dL Normal 74-106 [facility] Comment on above: Performed By: #### U RCX #### [facility] [address] [address] [address] Anthony Bonilla Potassium [Moles/Vol] 4.0 mmol/L Normal 3.5-5.1 [facility] Comment on above: Performed By: #### U RCX #### [facility] [address] [address] [address] Anthony Bonilla Sodium [Moles/Vol] 140 mmol/L Normal 136-145 [facility] Comment on above: Performed By: #### U RCX #### [facility] [address] [address] [address] Anthony Bonilla Urea nitrogen [Mass/Vol] 31.0 mg/dL Critically high 7.0-18.0 [facility] Comment on above: Performed By: #### U RCX #### [facility] [address] [place] [address] Dr. Anthony Bonilla Urea nitrogen/Creatinine [Mass ratio] 31.6 mg/mg Normal [facility] Comment on above: Performed By: #### U RCX #### [facility] [address] [place] [address] Dr. Anthony Bonilla CBC AUTO DIFFon 11-03-2021 BASO # 0.0 103/ul Normal 0.0-0.1 [facility] Comment on above: Performed By: #### C BC #### [facility] [address] [place] [address] Dr. Anthony Bonilla Basophils/100 WBC (Bld) 0.3 % Normal 0.2-2.0 [facility] Comment on above: Performed By: #### C BC #### [facility] [address] [place] [address] Dr. Anthony Bonilla EO # 0.1 103/ul Normal 0.0-0.7 [facility] Comment on above: Performed By: #### C BC #### [facility] [address] [place] [address] Dr. Anthony Bonilla Eosinophils/100 WBC (Bld) 0.6 % Critically low 0.9-7.0 [facility] Comment on above: Performed By: #### C BC #### [facility] [address] [place] [address] Dr. Anthony Bonilla Erythrocyte distribution width (RBC) [Ratio] 14.0 % Normal 11.0-15.0 [facility] Comment on above: Performed By: #### C BC #### [facility] [address] [place] [address] Dr. Anthony Bonilla Hematocrit (Bld) [Volume fraction] 23.1 % Critically low 36.0-48.0 [facility] Comment on above: Result Comment: Flui ds given Performed By: #### C BC #### [facility] [address] [place] [address] Dr. Anthony Bonilla Hemoglobin (Bld) [Mass/Vol] 7.6 g/dL Critically low 12.0-16.0 [facility] Comment on above: Performed By: #### C BC #### [facility] [address] [address] [address] Anthony Bonilla IG # 0.07 10e3/ul Critically high 0.00-0.03 [facility] Comment on above: Performed By: #### C BC #### [facility] [address] [place] [address] Dr. Anthony Bonilla IG % 0.6 % Critically high 0.0-0.5 [facility] Comment on above: Performed By: #### C BC #### [facility] [address] [place] [address] Dr. Anthony Bonilla LYMPH # 0.7 103/ul Critically low 1.2-3.8 [facility] Comment on above: Performed By: #### C BC #### [facility] [address] [place] [address] Dr. Anthony Bonilla Lymphocytes/100 WBC (Bld) 5.7 % Critically low 20.5-60.0 [facility] Comment on above: Performed By: #### C BC #### [facility] [address] [place] [address] Dr. Anthony Bonilla MANUAL DIFF REQ NO Normal [facility] Comment on above: Performed By: #### C BC #### [facility] [address] [place] [address] Dr. Anthony Bonilla MCH (RBC) [Entitic mass] 32.6 pg Normal 26.7-34.0 [facility] Comment on above: Performed By: #### C BC #### [facility] [address] [place] [address] Dr. Anthony Bonilla MCHC (RBC) [Mass/Vol] 32.9 g/dL Normal 29.9-35.2 [facility] Comment on above: Performed By: #### C BC #### [facility] [address] [place] [address] Dr. Anthony Bonilla MCV (RBC) [Entitic vol] 99.1 fL Critically high 81.0-99.0 [facility] Comment on above: Performed By: #### C BC #### [facility] [id number] Anthony Bonilla MONO # 0.8 103/ul Normal 0.3-0.8 [facility] Comment on above: Performed By: #### C BC #### [facility] [id number] Anthony Bonilla Monocytes/100 WBC (Bld) 6.8 % Normal 1.7-12.0 [facility] Comment on above: Performed By: #### C BC #### [facility] [address] [address] [address] Anthony Bonilla NEUT # 9.8 103/ul Critically high 1.4-6.5 [facility] Comment on above: Performed By: #### C BC #### [facility] [address] [place] [address] Dr. Anthony Bonilla Neutrophils/100 WBC (Bld) 86.0 % Critically high 43.0-75.0 [facility] Comment on above: Performed By: #### C BC #### [facility] [address] [place] [address] Dr. Anthony Bonilla Platelet mean volume (Bld) [Entitic vol] 9.5 fL Normal 9.5-13.5 [facility] Comment on above: Performed By: #### C BC #### [facility] [address] [place] [address] Dr. Anthony Bonilla PLT 160 103/ul Normal 150-450 [facility] Comment on above: Performed By: #### C BC #### [facility] [address] [place] [address] Dr. Anthony Bonilla RBC 2.33 106/ul Critically low 4.20-5.40 [facility] Comment on above: Performed By: #### C BC #### [facility] [address] [place] [address] Dr. Anthony Bonilla WBC 11.4 103/ul Critically high 4.0-11.0 [facility] Comment on above: Performed By: #### C BC #### [facility] [address] [address] [address] Anthony Bonilla HEMOGLOBIN AND HEMATOCRITon 11-03-2021 Hematocrit (Bld) [Volume fraction] 27.0 % Critically low 36.0-48.0 [facility] Comment on above: Performed By: #### U RCX #### [facility] [address] [place] [address] Dr. Anthony Bonilla Hemoglobin (Bld) [Mass/Vol] 9.1 g/dL Critically low 12.0-16.0 [facility] Comment on above: Performed By: #### U RCX #### [facility] [address] [place] [address] Dr. Anthony Bonilla OCC BLD IMMUNO SCREENon 10-10 OCCULT BLOOD Positive Abnormal NEGATIVE [facility] Comment on above: Performed By: #### C BC #### [facility] [address] [place] [address] Dr. Anthony Bonilla PROF CHEM 8 (BAS METB)on Anion gap [Moles/Vol] 10.7 mmol/L Normal [facility] Comment on above: Performed By: #### C BC #### [facility] [address] [place] [address] Dr. Anthony Bonilla Calcium [Mass/Vol] 8.6 mg/dL Normal 8.5-10.1 [facility] Comment on above: Performed By: #### C BC #### [facility] [address] [place] [address] Dr. Anthony Bonilla Chloride [Moles/Vol] 107 mmol/L Normal 98-107 [facility] Comment on above: Performed By: #### C BC #### [facility] [address] [place] [address] Dr. Anthony Bonilla CO2 [Moles/Vol] 24.4 mmol/L Normal 21.0-32.0 [facility] Comment on above: Performed By: #### C BC #### [facility] [address] [place] [address] Dr. Anthony Bonilla Creatinine [Mass/Vol] 0.98 mg/dL Normal 0.55-1.02 [facility] Comment on above: Performed By: #### C BC #### [facility] [address] [address] [address] Anthony Bonilla EGFR-AF URUGUAYAN >60 Normal >=60 [facility] Comment on above: Performed By: #### C BC #### [facility] [address] [address] [address] Anthony Bonilla EGFR-NON AF URUGUAYAN 54 mL/min/1.73m2 Critically low >=60 [facility] Comment on above: Performed By: #### C BC #### [facility] [address] [address] [address] Anthony Bonilla Glucose [Mass/Vol] 98 mg/dL Normal 74-106 [facility] Comment on above: Performed By: #### C BC #### [facility] [address] [address] [address] Anthony Bonilla Potassium [Moles/Vol] 4.1 mmol/L Normal 3.5-5.1 [facility] Comment on above: Performed By: #### C BC #### [facility] [address] [address] [address] Anthony Bonilla Sodium [Moles/Vol] 138 mmol/L Normal 136-145 [facility] Comment on above: Performed By: #### C BC #### [facility] [address] [address] [address] Anthony Bonilla Urea nitrogen [Mass/Vol] 43.0 mg/dL Critically high 7.0-18.0 [facility] Comment on above: Performed By: #### C BC #### [facility] [address] [address] [address] Anthony Bonilla Urea nitrogen/Creatinine [Mass ratio] 43.9 mg/mg Normal [facility] Comment on above: Performed By: #### C BC #### [facility] [address] [address] [address] Anthony Bonilla TYPE AND SCREENon 11-03-2021 TYPE AND SCREEN Negative Normal [facility] Comment on above: Performed By: #### C BC #### [facility] [address] [address] [address] Anthony Bonilla CBC AUTO DIFFon 11-02-2021 BASO # 0.0 103/ul Normal 0.0-0.1 [facility] Comment on above: Performed By: #### U RCX #### [facility] [address] [address] [address] Anthony Bonilla Basophils/100 WBC (Bld) 0.3 % Normal 0.2-2.0 [facility] Comment on above: Performed By: #### U RCX #### [facility] [address] [place] [address] Dr. Anthony Bonilla EO # 0.0 103/ul Normal 0.0-0.7 [facility] Comment on above: Performed By: #### U RCX #### [facility] [address] [place] [address] Dr. Anthony Bonilla Eosinophils/100 WBC (Bld) 0.1 % Critically low 0.9-7.0 [facility] Comment on above: Performed By: #### U RCX #### [facility] [address] [place] [address] Dr. Anthony Bonilla Erythrocyte distribution width (RBC) [Ratio] 13.9 % Normal 11.0-15.0 [facility] Comment on above: Performed By: #### U RCX #### [facility] [address] [place] [address] Dr. Anthony Bonilla Hematocrit (Bld) [Volume fraction] 31.8 % Critically low 36.0-48.0 [facility] Comment on above: Performed By: #### U RCX #### [facility] [address] [place] [address] Dr. Anthony Bonilla Hemoglobin (Bld) [Mass/Vol] 10.5 g/dL Critically low 12.0-16.0 [facility] Comment on above: Performed By: #### U RCX #### [facility] [address] [place] [address] Dr. Anthony Bonilla IG # 0.07 10e3/ul Critically high 0.00-0.03 [facility] Comment on above: Performed By: #### U RCX #### [facility] [address] [address] [address] Anthony Bonilla IG % 0.5 % Normal 0.0-0.5 [facility] Comment on above: Performed By: #### U RCX #### [facility] [address] [address] [address] Anthony Bonilla LYMPH # 0.9 103/ul Critically low 1.2-3.8 [facility] Comment on above: Performed By: #### U RCX #### [facility] [address] [address] [address] Anthony Bonilla Lymphocytes/100 WBC (Bld) 6.1 % Critically low 20.5-60.0 [facility] Comment on above: Performed By: #### U RCX #### [facility] [address] [address] [address] Anthony Bonilla MANUAL DIFF REQ NO Normal [facility] Comment on above: Performed By: #### U RCX #### [facility] [address] [address] [address] Anthony Bonilla MCH (RBC) [Entitic mass] 32.7 pg Normal 26.7-34.0 [facility] Comment on above: Performed By: #### U RCX #### [facility] [address] [address] [address] Anthony Bonilla MCHC (RBC) [Mass/Vol] 33.0 g/dL Normal 29.9-35.2 [facility] Comment on above: Performed By: #### U RCX #### [facility] [address] [address] [address] Anthony Boinlla MCV (RBC) [Entitic vol] 99.1 fL Critically high 81.0-99.0 [facility] Comment on above: Performed By: #### U RCX #### [facility] [address] [address] [address] Anthony Bonilla MONO # 1.0 103/ul Critically high 0.3-0.8 [facility] Comment on above: Performed By: #### U RCX #### [facility] [address] [address] [address] Anthony Bonilla Monocytes/100 WBC (Bld) 6.8 % Normal 1.7-12.0 [facility] Comment on above: Performed By: #### U RCX #### [facility] [address] [address] [address] Anthony Bonilla NEUT # 12.1 103/ul Critically high 1.4-6.5 [facility] Comment on above: Performed By: #### U RCX #### [facility] [address] [address] [address] Anthony Bonilla Neutrophils/100 WBC (Bld) 86.2 % Critically high 43.0-75.0 [facility] Comment on above: Performed By: #### U RCX #### [facility] [address] [address] [address] Anthony Bonilla Platelet mean volume (Bld) [Entitic vol] 9.8 fL Normal 9.5-13.5 [facility] Comment on above: Performed By: #### U RCX #### [facility] [address] [address] [address] Anthony Bonilla PLT 175 103/ul Normal 150-450 [facility] Comment on above: Performed By: #### U RCX #### [facility] [address] [address] [address] Anthony Bonilla RBC 3.21 106/ul Critically low 4.20-5.40 [facility] Comment on above: Performed By: #### U RCX #### [facility] [address] [place] [address] Dr. Anthony Bonilla WBC 14.0 103/ul Critically high 4.0-11.0 [facility] Comment on above: Performed By: #### U RCX #### [facility] [address] [place] [address] Dr. Anthony Bonilla CT HEAD WO CONon [...] by: HERNANDO HAMLIN Date: 2021-11-01 22:36 Normal [facility] PROF CHEM 8 (BAS METB)on Anion gap [Moles/Vol] 12.2 mmol/L Normal [facility] Comment on above: Performed By: #### C BC #### [facility] [address] [place] [address] Dr. Anthony Bonilla Calcium [Mass/Vol] 8.7 mg/dL Normal 8.5-10.1 [facility] Comment on above: Performed By: #### C BC #### [facility] [address] [place] [address] Dr. Anthony Bonilla Chloride [Moles/Vol] 103 mmol/L Normal 98-107 [facility] Comment on above: Performed By: #### C BC #### [facility] [address] [place] [address] Dr. Anthony Bonilla CO2 [Moles/Vol] 25.7 mmol/L Normal 21.0-32.0 [facility] Comment on above: Performed By: #### C BC #### [facility] [address] [place] [address] Dr. Anthony Bonilla Creatinine [Mass/Vol] 1.08 mg/dL Critically high 0.55-1.02 [facility] Comment on above: Performed By: #### C BC #### [facility] [address] [place] [address] Dr. Anthony Bonilla EGFR-AF URUGUAYAN 58 mL/min/1.73m2 Critically low >=60 [facility] Comment on above: Performed By: #### C BC #### [facility] [address] [address] [address] Anthony Bonilla EGFR-NON AF URUGUAYAN 48 mL/min/1.73m2 Critically low >=60 [facility] Comment on above: Performed By: #### C BC #### [facility] [address] [address] [address] Anthony Bonilla Glucose [Mass/Vol] 84 mg/dL Normal 74-106 [facility] Comment on above: Performed By: #### C BC #### [facility] [address] [address] [address] Anthony Bonilla Potassium [Moles/Vol] 4.9 mmol/L Normal 3.5-5.1 [facility] Comment on above: Performed By: #### C BC #### [facility] [address] [address] [address] Anthony Bonilla Sodium [Moles/Vol] 136 mmol/L Normal 136-145 [facility] Comment on above: Performed By: #### C BC #### [facility] [address] [address] [address] Anthony Bonilla Urea nitrogen [Mass/Vol] 33.0 mg/dL Critically high 7.0-18.0 [facility] Comment on above: Performed By: #### C BC #### [facility] [address] [address] [address] Anthony Bonilla Urea nitrogen/Creatinine [Mass ratio] 30.6 mg/mg Normal [facility] Comment on above: Performed By: #### C BC #### [facility] [address] [address] [address] Anthony Bonilla XR CHEST 1 Von [...] GIANA HOLLY Date: 2021-11-01 22:05 Normal [facility] CARDIAC DARWIN ADMITon 022 CK [Catalytic activity/Vol] 92 U/L Normal 26-192 [facility] Comment on above: Performed By: #### C BC #### [facility] [address] [place] [address] Dr. Anthony Bonilla CK.MB [Mass/Vol] 1.73 ng/mL Normal <=3.60 [facility] Comment on above: Performed By: #### C BC #### [facility] [address] [place] [address] Dr. Anthony Bonilla HSTROP 20.0 pg/mL Normal 4.0-51.3 [facility] Comment on above: Result Comment: CUT- OFF POINTS HAVE BEEN ESTABLISHED BASED ON THE FOURTH UNIVERSAL DEFINITIONS OF MYOCARDIAL INFARCTION. THE UPPER REFERENCE LIMIT (URL) OF TROPONIN, DEFINED THE 99TH PERCENTILE OF cTnI DISTRIBUTION IN A REFERENCE POPULATION, HAS BEEN CONFIRMED THE DECISION THRESHOLD FOR [place] DIAGNOSIS. Performed By: #### C BC #### [facility] [address] [place] [address] Dr. Anthony Bonilla CANDIDA 58 ng/mL Normal 9-82 [facility] Comment on above: Performed By: #### C BC #### [facility] [address] [place] [address] Dr. Anthony Bonilla CBC AUTO DIFFon 11-01-2021 BASO # 0.0 103/ul Normal 0.0-0.1 [facility] Comment on above: Performed By: #### U RCX #### [facility] [address] [place] [address] Dr. Anthony Bonilla Basophils/100 WBC (Bld) 0.2 % Normal 0.2-2.0 [facility] Comment on above: Performed By: #### U RCX #### [facility] [address] [place] [address] Dr. Anthony Bonilla EO # 0.0 103/ul Normal 0.0-0.7 [facility] Comment on above: Performed By: #### U RCX #### [facility] [address] [place] [address] Dr. Anthony Bonilla Eosinophils/100 WBC (Bld) 0.0 % Critically low 0.9-7.0 [facility] Comment on above: Performed By: #### U RCX #### [facility] [address] [place] [address] Dr. Anthony Bonilla Erythrocyte distribution width (RBC) [Ratio] 14.1 % Normal 11.0-15.0 [facility] Comment on above: Performed By: #### U RCX #### [facility] [address] [place] [address] Dr. Anthony Bonilla Hematocrit (Bld) [Volume fraction] 36.0 % Normal 36.0-48.0 [facility] Comment on above: Performed By: #### U RCX #### [facility] [address] [place] [address] Dr. Anthony Bonilla Hemoglobin (Bld) [Mass/Vol] 12.1 g/dL Normal 12.0-16.0 [facility] Comment on above: Performed By: #### U RCX #### [facility] [address] [place] [address] Dr. Anthony Bonilla IG # 0.11 10e3/ul Critically high 0.00-0.03 [facility] Comment on above: Performed By: #### U RCX #### [facility] [address] [place] [address] Dr. Anthony Bonilla IG % 0.5 % Normal 0.0-0.5 [facility] Comment on above: Performed By: #### U RCX #### [facility] [address] [place] [address] Dr. Anthony Bonilla LYMPH # 0.7 103/ul Critically low 1.2-3.8 [facility] Comment on above: Performed By: #### U RCX #### [facility] [address] [place] [address] Dr. Anthony Bonilla Lymphocytes/100 WBC (Bld) 3.2 % Critically low 20.5-60.0 [facility] Comment on above: Performed By: #### U RCX #### [facility] [address] [place] [address] Dr. Anthony Bonilla MANUAL DIFF REQ NO Normal [facility] Comment on above: Performed By: #### U RCX #### [facility] [address] [place] [address] Dr. Anthony Bonilla MCH (RBC) [Entitic mass] 33.0 pg Normal 26.7-34.0 [facility] Comment on above: Performed By: #### U RCX #### [facility] [address] [place] [address] Dr. Anthony Bonilla MCHC (RBC) [Mass/Vol] 33.6 g/dL Normal 29.9-35.2 [facility] Comment on above: Performed By: #### U RCX #### [facility] [address] [place] [address] Dr. Anthony Bonilla MCV (RBC) [Entitic vol] 98.1 fL Normal 81.0-99.0 [facility] Comment on above: Performed By: #### U RCX #### [facility] [address] [place] [address] Dr. Anthony Bonilla MONO # 1.1 103/ul Critically high 0.3-0.8 [facility] Comment on above: Performed By: #### U RCX #### [facility] [address] [place] [address] Dr. Anthony Bonilla Monocytes/100 WBC (Bld) 4.8 % Normal 1.7-12.0 [facility] Comment on above: Performed By: #### U RCX #### [facility] [address] [place] [address] Dr. Anthony Bonilla NEUT # 20.3 103/ul Critically high 1.4-6.5 [facility] Comment on above: Performed By: #### U RCX #### [facility] [address] [place] [address] Dr. Anthony Bonilla Neutrophils/100 WBC (Bld) 91.3 % Critically high 43.0-75.0 [facility] Comment on above: Performed By: #### U RCX #### [facility] [address] [place] [address] Dr. Anthony Bonilla Platelet mean volume (Bld) [Entitic vol] 10.8 fL Normal 9.5-13.5 [facility] Comment on above: Performed By: #### U RCX #### [facility] [address] [place] [address] Dr. Anthony Bonilla PLT 179 103/ul Normal 150-450 [facility] Comment on above: Performed By: #### U RCX #### [facility] [address] [place] [address] Dr. Anthony Bonilla RBC 3.67 106/ul Critically low 4.20-5.40 [facility] Comment on above: Performed By: #### U RCX #### [facility] [address] [place] [address] Dr. Anthony Bonilla WBC 22.2 103/ul Critically high 4.0-11.0 [facility] Comment on above: Performed By: #### U RCX #### [facility] [address] [place] [address] Dr. Anthony Bonilla CULTURE BLOODon 11-01-2021 Microscopic examination of blood, culture Culture Observations: NO GROWTH AT 5 DAYS. Normal [facility] Comment on above: Performed By: #### B LDCX2 #### [facility] [address] [place] [address] Dr. Anthony Bonilla Performed By: #### C BC #### [facility] [address] [place] [address] Dr. Anthony Bonilla Covid-19 PCR (CVDTB)on 10-10 SARS-CoV-2 (COVID-19) RNA OH+probe Ql (Unsp spec) Detected Critically abnormal NOT DETECTED [facility] Comment on above: Result Comment: This test is not yet approved or cleared by the [place] FDA. When there are no FDA-approved or cleared tests available, and other criteria are met, FDA can make tests available under an emergency access mechanism called an Emergency Use Authorization (EUA). The EUA for this test is supported by the [place] of Health and Human Service's declaration that [...] used). Performed By: #### C BC #### [facility] [address] [place] [address] Dr. Anthony Bonilla ER URINE PROFILEon 2 Bilirubin Ql (U) Negative Normal NEGATIVE [facility] Comment on above: Performed By: #### U RCX #### [facility] [address] [place] [address] Dr. Anthony Bonilla Clarity (U) CLEAR Normal CLEAR [facility] Comment on above: Performed By: #### U RCX #### [facility] [address] [place] [address] Dr. Anthony Bonilla Color (U) LT. YELLOW Normal YELLOW [facility] Comment on above: Performed By: #### U RCX #### [facility] [address] [place] [address] Dr. Anthony Bonilla ERUJOHNNYD A micrscopic examina tion will be performed if indicated. Normal [facility] Comment on above: Performed By: #### U RCX #### [facility] [address] [place] [address] Dr. Anthony Bonilla Glucose Ql (U) Negative Normal NEGATIVE [facility] Comment on above: Performed By: #### U RCX #### [facility] [address] [place] [address] Dr. Anthony Bonilla Hemoglobin Ql (U) TRACE-INTACT Abnormal NEGATIVE [facility] Comment on above: Performed By: #### U RCX #### [facility] [address] [place] [address] Dr. Anthony Bonilla Ketones Ql (U) Negative Normal NEGATIVE [facility] Comment on above: Performed By: #### U RCX #### [facility] [address] [place] [address] Dr. Anthony Bonilla LEUKOCYTES Negative Normal NEGATIVE [facility] Comment on above: Performed By: #### U RCX #### [facility] [address] [place] [address] Dr. Anthony Bonilla Nitrite Ql (U) Negative Normal NEGATIVE [facility] Comment on above: Performed By: #### U RCX #### [facility] [address] [place] [address] Dr. Anthony Bonilla pH (U) 6.0 [pH] Normal 5-9 [facility] Comment on above: Performed By: #### U RCX #### [facility] [address] [place] [address] Dr. Anthony Bonilla SPEC GRAVITY 1.020 Normal 1.005-<=1. 025 [facility] Comment on above: Performed By: #### U RCX #### [facility] [address] [place] [address] Dr. Anthony Bonilla UA PROTEIN Negative Normal NEGATIVE/ TRACE [facility] Comment on above: Performed By: #### U RCX #### [facility] [address] [place] [address] Dr. Anthony Bonilla UR MICRO IND INDICATED Normal [facility] Comment on above: Performed By: #### U RCX #### [facility] [address] [place] [address] Dr. Anthony Bonilla Urobilinogen Qn (U) 1.0 {Gen'U}/dL Normal 0.2 - 1. 0 [facility] Comment on above: Performed By: #### U RCX #### [facility] [address] [place] [address] Dr. Anthony Bonilla LACTATE/LACTIC ACIDon 2021 Lactate [Moles/Vol] 1.6 mmol/L Normal 0.4-1.9 [facility] Comment on above: Performed By: #### C BC #### [facility] [address] [place] [address] Dr. Anthony Bonilla PROF 14(COMP METB)on 022 Albumin [Mass/Vol] 3.2 g/dL Critically low 3.4-5.0 [facility] Comment on above: Performed By: #### C BC #### [facility] [address] [place] [address] Dr. Anthony Bonilla Albumin/Globulin [Mass ratio] 0.9 {ratio} Normal [facility] Comment on above: Performed By: #### C BC #### [facility] [address] [place] [address] Dr. Anthony Bonilla ALP [Catalytic activity/Vol] 26 U/L Critically low 46-116 [facility] Comment on above: Performed By: #### C BC #### [facility] [address] [place] [address] Dr. Anthony Bonilla ALT [Catalytic activity/Vol] 32 U/L Normal 14-59 [facility] Comment on above: Performed By: #### C BC #### [facility] [address] [place] [address] Dr. Anthony Bonilla Anion gap [Moles/Vol] 11.5 mmol/L Normal [facility] Comment on above: Performed By: #### C BC #### [facility] [address] [place] [address] Dr. Anthony Bonilla AST [Catalytic activity/Vol] 16 U/L Normal 15-37 [facility] Comment on above: Performed By: #### C BC #### [facility] [address] [place] [address] Dr. Anthony Bonilla Bilirubin [Mass/Vol] 1.2 mg/dL Critically high 0.2-1.0 [facility] Comment on above: Performed By: #### C BC #### [facility] [address] [place] [address] Dr. Anthony Bonilla Calcium [Mass/Vol] 9.0 mg/dL Normal 8.5-10.1 [facility] Comment on above: Performed By: #### C BC #### [facility] [address] [place] [address] Dr. Anthony Bonilla Chloride [Moles/Vol] 102 mmol/L Normal 98-107 [facility] Comment on above: Performed By: #### C BC #### [facility] [address] [place] [address] Dr. Anthony Bonilla CO2 [Moles/Vol] 25.2 mmol/L Normal 21.0-32.0 [facility] Comment on above: Performed By: #### C BC #### [facility] [address] [place] [address] Dr. Anthony Bonilla Creatinine [Mass/Vol] 1.25 mg/dL Critically high 0.55-1.02 [facility] Comment on above: Performed By: #### C BC #### [facility] [address] [place] [address] Dr. Anthony Bonilla EGFR-AF URUGUAYAN 49 mL/min/1.73m2 Critically low >=60 [facility] Comment on above: Performed By: #### C BC #### [facility] [address] [place] [address] Dr. Anthony Bonilla EGFR-NON AF URUGUAYAN 41 mL/min/1.73m2 Critically low >=60 [facility] Comment on above: Performed By: #### C BC #### [facility] [address] [place] [address] Dr. Anthony Bonilla Globulin (S) [Mass/Vol] 3.4 g/dL Normal [facility] Comment on above: Performed By: #### C BC #### [facility] [address] [place] [address] Dr. Anthony Bonilla Glucose [Mass/Vol] 102 mg/dL Normal 74-106 [facility] Comment on above: Performed By: #### C BC #### [facility] [address] [address] [address] Anthony Bonilla Potassium [Moles/Vol] 4.7 mmol/L Normal 3.5-5.1 [facility] Comment on above: Performed By: #### C BC #### [facility] [address] [place] [address] Dr. Anthony Bonilla Protein [Mass/Vol] 6.6 g/dL Normal 6.4-8.2 [facility] Comment on above: Performed By: #### C BC #### [facility] [address] [place] [address] Dr. Anthony Bonilla Sodium [Moles/Vol] 134 mmol/L Critically low 136-145 [facility] Comment on above: Performed By: #### C BC #### [facility] [address] [place] [address] Dr. Anthony Bonilla Urea nitrogen [Mass/Vol] 33.0 mg/dL Critically high 7.0-18.0 [facility] Comment on above: Performed By: #### C BC #### [facility] [address] [place] [address] Dr. Anthony Bonilla Urea nitrogen/Creatinine [Mass ratio] 26.4 mg/mg Normal [facility] Comment on above: Performed By: #### C BC #### [facility] [address] [place] [address] Dr. Anthony Bonilla PROTIMEon 11-01-2021 INR Coag (PPP) [Relative time] 0.97 {INR} Normal [facility] Comment on above: Performed By: #### U RCX #### [facility] [address] [place] [address] Dr. Anthony Bonilla INR GUIDELINES SEE BELOW Normal [facility] Comment on above: Result Comment: MEGAN RED INR: 2.0 - 3.0 CONDITIONS NOT LISTED BELOW 2.5 - 3.5 FOR PROSTHETIC HEART VALVE REPLACEMENT 2.5 - 3.5 RECURRENT THROMBOSIS Performed By: #### U RCX #### [facility] [address] [place] [address] Dr. Anthony Bonilla PT Coag (PPP) [Time] 10.5 s Normal 9.0-11.6 [facility] Comment on above: Performed By: #### U RCX #### [facility] [address] [place] [address] Dr. Anthony Bonilla PTTon 11-01-2021 aPTT Coag (Bld) [Time] 27.8 s Normal 22.3-36.2 [facility] Comment on above: Performed By: #### U RCX #### [facility] [address] [place] [address] Dr. Anthony Bonilla TSHon 11-01-2021 TSH 1.011 uIU/mL Normal 0.358-3.74 0 [facility] Comment on above: Performed By: #### C BC #### [facility] [address] [place] [address] Dr. Anthony Bonilla URINE MICROSCOPIC ONLYon BACTERIA LARGE Abnormal NONE SEEN [facility] Comment on above: Performed By: #### U RCX #### [facility] [address] [place] [address] Dr. Anthony Bonilla Bacteria identified Cx Nom (U) INDICATED Normal [facility] Comment on above: Performed By: #### U RCX #### [facility] [address] [place] [address] Dr. Anthony Bonilla CAST NONE SEEN Normal NONE SEEN [facility] Comment on above: Performed By: #### U RCX #### [facility] [address] [place] [address] Dr. Anthony Bonilla Crystals LM Nom (Urine sed) NONE SEEN Normal NONE SEEN [facility] Comment on above: Performed By: #### U RCX #### [facility] [address] [place] [address] Dr. Anthony Bonilla Epithelial cells LM Ql (Urine sed) FEW Abnormal NONE SEEN /RARE [facility] Comment on above: Performed By: #### U RCX #### [facility] [address] [place] [address] Dr. Anthony Bonilla MUCOUS NONE SEEN Normal NONE SEEN [facility] Comment on above: Performed By: #### U RCX #### [facility] [address] [place] [address] Dr. Anthony Bonilla RBC 2-5 Abnormal 0-2 [facility] Comment on above: Performed By: #### U RCX #### [facility] [address] [place] [address] Dr. Anthony Bonilla WBC 0-2 Abnormal NONE SEEN [facility] Comment on above: Performed By: #### U RCX #### [facility] [address] [place], [place] [address] Dr. Anthony Bonilla Covid-19 PCR (CVDTB)on SARS-CoV-2 (COVID-19) RNA OH+probe Ql (Unsp spec) Detected Critically abnormal NOT DETECTED [facility] Comment on above: Result Comment: This test is not yet approved or cleared by the [place] FDA. When there are no FDA-approved or cleared tests available, and other criteria are met, FDA can make tests available under an emergency access mechanism called an Emergency Use Authorization (EUA). The EUA for this test is supported by the [place] of Health and Human Service's declaration that [...] used). Performed By: #### C BC #### [facility] [address] [id number] Anthony Bonilla Covid-19 PCR (CVDTB)on SARS-CoV-2 (COVID-19) RNA OH+probe Ql (Unsp spec) Not detected Normal NOT DETECTED [facility] Comment on above: Result Comment: This test is not yet approved or cleared by the [place] FDA. When there are no FDA-approved or cleared tests available, and other criteria are met, FDA can make tests available under an emergency access mechanism called an Emergency Use Authorization (EUA). The EUA for this test is supported by the [employer] of Health and Human Service's (HHS's) declaration [...] SARS-CoV-2. Performed By: #### U RCX #### [facility] [address] [place], [place] [address] Dr. 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 Coding Queryon 10-02-2019 Coding Query HIM CODING QUERY FOR Accurate coding and billing requires that the principal diagnosis, secondary diagnosis and procedures be supported by physician documentation and that this documentation be reflected in the discharge summary (if required for patient type). Any time this information is not complete, it is the labor economics professor?s responsibility to query the physician. Based on [...] timely attention to this matter. Ambar Manley [employer] Supervisor Ext [phone] [Electronically Signed on: 10/18/2019 21:40 EDT] Mi Licea DO [Verified on: 10/18/2019 21:40 EDT] Mi Licea DO [Transcribed on: 10/02/2019 11:06 EDT] [facility] Consent Formson 09-29-2019 Consent Forms [id number]#1.00[facility] Medication Managementon 09-09 Medication Management [id number]#1.00[facility] Outside Recordson 09-29-2019 Outside Records [id number]#1.00[facility] Outside Records [id number]#1.00[facility] Provider Orderson 09-29-2019 Provider Orders [id number]#1.00[facility] Telemetry Stripson 0 Telemetry Strips [id number]#1.00[facility] .Auto Diff 2019 Auto Ross % 11 % Normal 1-[address] [facility] Comment on above: Performed By: #### 1 [id number], [id number], 6178072 #### [facility] (DEFAULT) [address] [place] [address] Baso Abs# 0.0 x10 Normal 0.0-0.[address] [facility] Comment on above: Performed By: #### 1 [id number], [id number], 0267565 #### [facility] (DEFAULT) [address] [place] [address] Basophils/100 WBC (Bld) 0.1 % Low 0.2-2.[address] [facility] Comment on above: Performed By: #### 1 [id number], 81533049, 3481106 #### [facility] (DEFAULT) [address] [place] [address] 74020 Eos Abs# 0.2 x10 Normal 0.0-0.[address] [facility] Comment on above: Performed By: #### 1 [id number], 23455783, 4477776 #### [facility] (DEFAULT) [address] [place] [address] 31080 Eosinophils/100 WBC (Bld) 2.2 % Normal 0.9-4.[address] [facility] Comment on above: Performed By: #### 1 [id number], 77706519, 7783281 #### [facility] (DEFAULT) [address] [place] [address] 48554 Lymphocytes (Bld) [#/Vol] 0.6 x10 Low 1.3-2.[address] [facility] Comment on above: Performed By: #### 1 [id number], 02959831, 0187282 #### [facility] (DEFAULT) [address] [place] [address] 26702 Lymphocytes/100 WBC (Bld) 6 % Low 14-[address] [facility] Comment on above: Performed By: #### 1 [id number], 62746886, 4389254 #### [facility] (DEFAULT) [address] [place] [address] Ross Abs# 1.0 x10 High 0.0-0.[address] [facility] Comment on above: Performed By: #### 1 [id number], 44910078, 8611454 #### [facility] (DEFAULT) [address] [place] [address] Neut Abs# 7.2 x10 Normal 1.5-9.[address] [facility] Comment on above: Performed By: #### 1 [id number], 99646417, 2838830 #### [facility] (DEFAULT) [address] [place] [address] Neutrophils/100 WBC (Bld) 80 % Normal 44-[address] [facility] Comment on above: Performed By: #### 1 [id number], 19301348, 0021539 #### [facility] (DEFAULT) [address] [place] [address] CBC w/ Auto Diffon 0 Erythrocyte distribution width (RBC) [Ratio] 14.4 % Normal 11.5-15.[address] [facility] Comment on above: Performed By: #### 1 [id number], 04651363, 6635210 #### [facility] (DEFAULT) [address] [place] [address] Hematocrit (Bld) [Volume fraction] 36.2 % Normal 33.7-40.[address] [facility] Comment on above: Performed By: #### 1 [id number], 71746693, 1948385 #### [facility] (DEFAULT) [address] [place] [address] Hemoglobin (Bld) [Mass/Vol] 11.9 g/dL Normal 11.3-15.[address] [facility] Comment on above: Performed By: #### 1 [id number], 91404961, 5239987 #### [facility] (DEFAULT) [address] [place] [address] Man Diff? Auto Normal [facility] Comment on above: Performed By: #### 1 [id number], 31579429, 1115660 #### [facility] (DEFAULT) [address] [place] [address] MCH (RBC) [Entitic mass] 33 pg Normal 24-[address] [facility] Comment on above: Performed By: #### 1 [id number], 52937928, 1151141 #### [facility] (DEFAULT) [address] [place] [address] MCHC (RBC) [Mass/Vol] 33 g/dL Normal 26-[address] [facility] Comment on above: Performed By: #### 1 [id number], 73497306, 1638390 #### [facility] (DEFAULT) [address] [place] [address] MCV (RBC) [Entitic vol] 100 fL Normal 81-[address] [facility] Comment on above: Performed By: #### 1 [id number], 47586810, 4674395 #### [facility] (DEFAULT) [address] [place] [address] Platelet mean volume (Bld) [Entitic vol] 9.6 fL Normal 6.3-10.[address] [facility] Comment on above: Performed By: #### 1 [id number], 08798303, 6805810 #### [facility] (DEFAULT) [address] [place] [address] Platelets (Bld) [#/Vol] 286 x10 Normal 138-[address] [facility] Comment on above: Performed By: #### 1 [id number], 99704820, 6899405 #### [facility] (DEFAULT) [address] [place] [address] RBC (Bld) [#/Vol] 3.61 x10 Low 3.70-5.30 [facility] Comment on above: Performed By: #### 1 [id number], 34436882, 6638544 #### [facility] (DEFAULT) [address] [place] [address] WBC (Bld) [#/Vol] 9.0 x10 [facility] Comment on above: Performed By: #### 1 [id number], 29270469, 3227518 #### [facility] (DEFAULT) [address] [place] [address] Education Noteon 2019 Education Note Education Materials [...] done to rule of a DVT. Normal [facility] Extra Greenon 2019 Tube Collected Yes [facility] Comment on above: Performed By: #### 1 [id number], 77659880, 1803477 #### [facility] (DEFAULT) [address] [place] [address] Inpatient Patient Summaryon 2019 Inpatient Patient Summary [address] [address] Patient Discharge Instructions Name: DELICIA HSU : 1935 Patient Address: [address] [place] [address] Primary Care Provider: Name: Gypsy Mcmahon MD After you are discharged if you find you have any questions, please, call [phone] ext [phone] to speak to a nurse. Discharge Diagnosis: Primary localized osteoarthritis of left hip Prescription Information: If you have been given a prescription for narcotics, seek immediate medical attention if you have any difficulty breathing or any sudden status changes such as confusion and sleepiness. If you or anyone you know is experiencing suicidal thoughts, mental health, alcohol and/or drug addiction problems; contact the [facility] 31/08 Crisis Hotline -Text 4HKQL xi 963314. If you received any narcotics, sedation, or [...] business decisions or sign any legal documents [facility] would like to thank you for allowing us to assist you with your healthcare needs. The following includes patient education materials and information regarding your injury/illness. DELICIA HSU has been given the following list of follow-up instructions, prescriptions, and patient education materials: Follow-up Instructions With: Address: When: Mi Licea [address], [address] [place] [address] Business (2) 10/03/2019 8:30 AM With: Address: When: Gypsyenedina Mcmahon [address] [place] [address], [place] [address] Business (1) Medications During the course of [...] for Disease Control and Prevention October 2013 [facility] Progress Note - Nurseon 09-09 MCH (RBC) [...] on: 2019 11:52 EDT] Pan Regalado RN [facility] Progress Note - Nurse Pt. reports intermittent left upper inner thigh grabbing pain. Pt. moans during these episodes. Tramadol given. Pt. repostioned for comfort. No change in the muscle spasms. Dr. Chacko informed in person. No orders received. [Electronically Signed on: 2019 09:32 EDT] Pan Regalado RN [Verified on: 2019 09:32 EDT] Pan Regalado RN [facility] Progress Note-Physicianon Progress Note-Physician DATE OF POSTOPERATIVE [...] PROGNOSIS: Good. Devorah Redd DO JOB #: [id number] [Electronically Signed on: 2019 13:04 EDT] KENNEDYNEVAEHDEVORAH Olvera DO [Verified on: 2019 13:04 EDT] DEVORAH REDD DO [Transcribed on: 2019 11:05 EDT] GDU Normal [facility] .Auto Diff 1on 09-27-2019 Auto Ross % 9 % Normal 1-[address] [facility] Comment on above: Performed By: #### 1 [id number], 43913286, 6050792 #### [facility] (DEFAULT) [address] [place] [address] Baso Abs# 0.0 x10 Normal 0.0-0.[address] [facility] Comment on above: Performed By: #### 1 [id number], 58323223, 6344398 #### [facility] (DEFAULT) [address] [place] [address] Basophils/100 WBC (Bld) 0.1 % Low 0.2-2.[address] [facility] Comment on above: Performed By: #### 1 [id number], 08968560, 1272533 #### [facility] (DEFAULT) [address] [place] [address] Eos Abs# 0.2 x10 Normal 0.0-0.[address] [facility] Comment on above: Performed By: #### 1 [id number], 10042708, 6371243 #### [facility] (DEFAULT) [address] [place] [address] Eosinophils/100 WBC (Bld) 1.6 % Normal 0.9-4.[address] [facility] Comment on above: Performed By: #### 1 [id number], 46573876, 6063166 #### [facility] (DEFAULT) [address] [place] [address] Lymphocytes (Bld) [#/Vol] 0.5 x10 Low 1.3-2.[address] [facility] Comment on above: Performed By: #### 1 [id number], 34524016, 5730550 #### [facility] (DEFAULT) [address] [place] [address] Lymphocytes/100 WBC (Bld) 4 % Low 14-[address] [facility] Comment on above: Performed By: #### 1 [id number], 39264509, 8354573 #### [facility] (DEFAULT) [address] [place] [address] Ross Abs# 1.2 x10 High 0.0-0.[address] [facility] Comment on above: Performed By: #### 1 [id number], 27636511, 4164407 #### [facility] (DEFAULT) [address] [place] [address] Neut Abs# 11.5 x10 High 1.5-9.[address] [facility] Comment on above: Performed By: #### 1 [id number], 58521805, 7713578 #### [facility] (DEFAULT) [address] [place] [address]6861 Neutrophils/100 WBC (Bld) 86 % Normal 44-[address] [facility] Comment on above: Performed By: #### 1 [id number], 10269040, 3643576 #### [facility] (DEFAULT) [address] [place] [address] 23571 C Urineon 09-27-2019 C Urine Urine Culture [...] <=4 Verified Tri/Sulf S <=2/38 Verified Normal [facility] Comment on above: Performed By: #### 7 [id number], 58455339, [id number] #### [facility] (DEFAULT) [address] [place] [address] CBC w/ Auto Diffon 0 Erythrocyte distribution width (RBC) [Ratio] 14.5 % Normal 11.5-15.[address] [facility] Comment on above: Performed By: #### 1 [id number], 81199450, 1507134 #### [facility] (DEFAULT) [address] [place] [address] Hematocrit (Bld) [Volume fraction] 39.2 % Normal 33.7-40.[address] [facility] Comment on above: Performed By: #### 1 [id number], 32324878, 2911186 #### [facility] (DEFAULT) [address] [place] [address] Hemoglobin (Bld) [Mass/Vol] 12.8 g/dL Normal 11.3-15.[address] [facility] Comment on above: Performed By: #### 1 [id number], 80597275, 2556962 #### [facility] (DEFAULT) [address] [place] [address] 77103 Man Diff? Auto Normal [facility] Comment on above: Performed By: #### 1 [id number], 81019323, 2191573 #### [facility] (DEFAULT) [address] [place] [address] 26197 MCH (RBC) [Entitic mass] 33 pg Normal 24-[address] [facility] Comment on above: Performed By: #### 1 [id number], 70350391, 7933310 #### [facility] (DEFAULT) [address] [place] [address] 54035 MCHC (RBC) [Mass/Vol] 33 g/dL Normal 26-[address] [facility] Comment on above: Performed By: #### 1 [id number], 46736200, 8453870 #### [facility] (DEFAULT) [address] [place] [address] 31308 MCV (RBC) [Entitic vol] 101 fL High 81-[address] [facility] Comment on above: Performed By: #### 1 [id number], 08565245, 2126678 #### [facility] (DEFAULT) [address] [place] [address] 61415 Platelet mean volume (Bld) [Entitic vol] 9.8 fL Normal 6.3-10.[address] [facility] Comment on above: Performed By: #### 1 [id number], 23844055, 0433035 #### [facility] (DEFAULT) [address] [place] [address] 31825 Platelets (Bld) [#/Vol] 266 x10 Normal 138-[address] [facility] Comment on above: Performed By: #### 1 [id number], 79093529, 9392681 #### [facility] (DEFAULT) [address] [place] [address] 0[address]9 RBC (Bld) [#/Vol] 3.89 x10 Normal 3.70-5.30 [facility] Comment on above: Performed By: #### 1 [id number], 69001997, 9367441 #### [facility] (DEFAULT) [address] [place] [address] 85657 WBC (Bld) [#/Vol] 13.4 x10 [facility] Comment on above: Result Comment: Slid e Reviewed Performed By: #### 1 [id number], 17272107, 6864348 #### [facility] (DEFAULT) [address] [place] [address] Coding Summaryon 09-27-2019 Coding Summary CODING DATE: 020 [facility] STATUS: Home PAYOR: Medicare ADMIT DX: REASON [...] Marisela Lawrence Date Saved: 09/27/2019 11:11 am [facility] Extra Greenon 09-27-2019 Tube Collected Yes [facility] Comment on above: Performed By: #### 1 [id number], 34468658, 2532104 #### [facility] (DEFAULT) [address] [place] [address] Nutrition Noteon 09-27-2019 Nutrition Note Pt eating poorly, av g less than 30% of meals per intake records. Supplements also taken sporadically. Suspect pain and constipation may be playing a role. No new wts. Last BM 09/23. Possible discharge later today. Will continue to follow and monitor need to adjust supplements ie. offer to make into a milkshake, [facility] Pharmacy Noteon 09-27-2019 Pharmacy Note I have [...] [Verified on: 09/27/2019 14:01 EDT] Virgie Santos [facility] Progress Note - Nurseon 08- Progress Note - Nurse 1800 one dulcolax suppository administered, will continue to monitor. [Electronically Signed on: 09/27/2019 18:03 EDT] Luli Mclain RN [Verified on: 09/27/2019 18:03 EDT] Luli Mclain RN [facility] Progress Note - Nurse 1710 tramadol 50mg po administered for #10 left upper thigh pain , will continue to monitor. [Electronically Signed on: 09/27/2019 17:09 EDT] Luli Mclain RN [Verified on: 09/27/2019 17:09 EDT] Luli Mclain RN [facility] Progress Note-Physicianon Progress Note-Physician DATE OF POSTOPERATIVE [...] PROGNOSIS: Good. Devorah Redd DO JOB #: [id number] [Electronically Signed on: 2019 10:28 EDT] DEVORAH REDD DO [Verified on: 2019 10:28 EDT] DEVORAH REDD DO [Transcribed on: 09/27/2019 13:52 EDT] [facility] Normal [facility] .Auto Diff 1on 09-26-2019 Auto Ross % 9 % Normal [address] [facility] Comment on above: Performed By: #### 1 [id number], 16697524, 8963288 #### [facility] (DEFAULT) [address] [place] [address] 35500 Baso Abs# 0.0 x10 Normal 0.0-0.[address] [facility] Comment on above: Performed By: #### 1 [id number], 46227026, 4724761 #### [facility] (DEFAULT) [address] [place] [address] 62529 Basophils/100 WBC (Bld) 0.1 % Low 0.2-2.[address] [facility] Comment on above: Performed By: #### 1 [id number], 54967703, 9288281 #### [facility] (DEFAULT) [address] [place] [address] 00482 Eos Abs# 0.2 x10 Normal 0.0-0.[address] [facility] Comment on above: Performed By: #### 1 [id number], 24963151, 5206864 #### [facility] (DEFAULT) [address] [place] [address] 76507 Eosinophils/100 WBC (Bld) 2.0 % Normal 0.9-4.[address] [facility] Comment on above: Performed By: #### 1 [id number], 96795809, 0745767 #### [facility] (DEFAULT) [address] [place] [address] 33881 Lymphocytes (Bld) [#/Vol] 0.6 x10 Low 1.3-2.[address] [facility] Comment on above: Performed By: #### 1 [id number], 10637209, 6049853 #### [facility] (DEFAULT) [address] [place] [address] 89177 Lymphocytes/100 WBC (Bld) 6 % Low 14-[address] [facility] Comment on above: Performed By: #### 1 [id number], 43388932, 1922909 #### [facility] (DEFAULT) [address] [place] [address] 84997 Ross Abs# 0.9 x10 High 0.0-0.[address] [facility] Comment on above: Performed By: #### 1 [id number], 81873742, 3190291 #### [facility] (DEFAULT) [address] [place] [address] 64074 Neut Abs# 8.3 x10 Normal 1.5-9.[address] [facility] Comment on above: Performed By: #### 1 [id number], 74190646, 9184154 #### [facility] (DEFAULT) [address] [place] [address] 07076 Neutrophils/100 WBC (Bld) 83 % Normal 44-[address] [facility] Comment on above: Performed By: #### 1 [id number], 30270337, 7030308 #### [facility] (DEFAULT) [address] [place] [address] 96385 [facility] Standardon 09-26-2019 eGFR Non AA 48 mL/min/1.73m2 [facility] Comment on above: Performed By: #### 1 [id number], 23609491, 5017114 #### [facility] (DEFAULT) [address] [place] [address] 94339 eGFR AA 58 mL/min/1.73m2 [facility] Comment on above: Result Comment: Hematology Nurse Educator kody Kidney disease could be indicated at eGFRs of less than 60 ml/min/1.73m2. Kidney Failure is indicated at less than 15 ml/min/1.73m2 Performed By: #### 1 [id number], 63674526, 0662664 #### [facility] (DEFAULT) [address] [place] [address] 95950 Anion gap [Moles/Vol] 10.0 mmol/L Normal 5.0-19.[address] [facility] Comment on above: Performed By: #### 1 [id number], 19376321, 3221830 #### [facility] (DEFAULT) [address] [place] [address] 64885 Calcium [Mass/Vol] 8.8 mg/dL Low 8.9-10.3 [facility] Comment on above: Performed By: #### 1 [id number], 71051652, 0417595 #### [facility] (DEFAULT) [address] [place] [address] 85686 Chloride [Moles/Vol] 103 mmol/L Normal 101-[address] [facility] Comment on above: Performed By: #### 1 [id number], 27817986, 5047977 #### [facility] (DEFAULT) [address] [place] [address] 78213 CO2 [Moles/Vol] 28 mmol/L Normal 21-[address] [facility] Comment on above: Performed By: #### 1 [id number], 96732241, 2439672 #### [facility] (DEFAULT) [address] [place] [address] 76434 Creatinine [Mass/Vol] 1.09 mg/dL Normal 0.60-1.[address] [facility] Comment on above: Performed By: #### 1 [id number], 34447783, 9539622 #### [facility] (DEFAULT) [address] [place] [address] 76824 Glucose [Mass/Vol] 94.0 mg/dL Normal 74.0-118.0 [facility] Comment on above: Performed By: #### 1 [id number], 70443971, 6753998 #### [facility] (DEFAULT) [address] [place] [address] 84887 Osmolality [Osmolality] 276 mOsm/L [facility] Comment on above: Performed By: #### 1 [id number], 47454317, 2313936 #### [facility] (DEFAULT) [address] [place] [address] 22802 Potassium [Moles/Vol] 4.4 mmol/L Normal 3.6-5.[address] [facility] Comment on above: Performed By: #### 1 [id number], 55311953, 2566686 #### [facility] (DEFAULT) [address] [place] [address] 19778 Sodium [Moles/Vol] 137.0 mmol/L Normal 136.0-144 . [address] [facility] Comment on above: Performed By: #### 1 [id number], 95477242, 2078189 #### [facility] (DEFAULT) [address] [place] [address] 10572 Urea nitrogen [Mass/Vol] 19 mg/dL Normal 8-[address] [facility] Comment on above: Performed By: #### 1 [id number], 66795189, 7329223 #### [facility] (DEFAULT) [address] [place] [address] 37835 Urea nitrogen/Creatinine [Mass ratio] 17.0 mg/mg High 4.6-16.[address] [facility] Comment on above: Performed By: #### 1 [id number], 96382065, 7458854 #### [facility] (DEFAULT) [address] [place] [address] 95599 CBC w/ Auto Diffon 0 Erythrocyte distribution width (RBC) [Ratio] 14.4 % Normal 11.5-15.[address] [facility] Comment on above: Performed By: #### 1 [id number], 84401355, 3409941 #### [facility] (DEFAULT) [address] [place] [address] 16849 Hematocrit (Bld) [Volume fraction] 35.5 % Normal 33.7-40.[address] [facility] Comment on above: Performed By: #### 1 [id number], 67447366, 1062992 #### [facility] (DEFAULT) [address] [place] [address] 82267 Hemoglobin (Bld) [Mass/Vol] 11.6 g/dL Normal 11.3-15.[address] [facility] Comment on above: Performed By: #### 1 [id number], 30576385, 5933785 #### [facility] (DEFAULT) [address] [place] [address] 30809 Man Diff? Auto Normal [facility] Comment on above: Performed By: #### 1 [id number], 54171333, 4715171 #### [facility] (DEFAULT) [address] [place] [address] 66288 MCH (RBC) [Entitic mass] 33 pg Normal 24-[address] [facility] Comment on above: Performed By: #### 1 [id number], 23771461, 8449896 #### [facility] (DEFAULT) [address] [place] [address] 85835 MCHC (RBC) [Mass/Vol] 33 g/dL Normal 26-[address] [facility] Comment on above: Performed By: #### 1 [id number], 86472735, 7992103 #### [facility] (DEFAULT) [address] [place] [address] 34304 MCV (RBC) [Entitic vol] 102 fL High 81-[address] [facility] Comment on above: Performed By: #### 1 [id number], 89723383, 6895045 #### [facility] (DEFAULT) [address] [place] [address] 49570 Platelet mean volume (Bld) [Entitic vol] 9.8 fL Normal 6.3-10.[address] [facility] Comment on above: Performed By: #### 1 [id number], [id number], [id number] #### [facility] (DEFAULT) [address] [place] [address] 61290 Platelets (Bld) [#/Vol] 236 x10 Normal 138-[address] [facility] Comment on above: Performed By: #### 1 [id number], [id number], [id number] #### [facility] (DEFAULT) [address] [place] [address] 78453 RBC (Bld) [#/Vol] 3.49 x10 Low 3.70-5.30 [facility] Comment on above: Performed By: #### 1 [id number], [id number], [id number] #### [facility] (DEFAULT) [address] [place] [address] 73960 WBC (Bld) [#/Vol] 10.0 x10 [facility] Comment on above: Performed By: #### 1 [id number], [id number], [id number] #### [facility] (DEFAULT) [address] [place] [address] 96053 Consent Formson 09-26-2019 Consent Forms [id number]#[id number] [facility] Consultation/Specialist Note on 09-26-2019 Consultation/Specia list Note [...] [Verified on: 09/26/2019 07:35 EDT] SUDHEER PIKE [facility] Progress Note - Nurseon 08- Progress Note [...] met. [Electronically Signed on: 09/26/2019 07:45 EDT] Twila Cruz RN Normal [facility] .Auto Diff 1on 09-25-2019 Auto Ross % 8 % Normal 1-[address] [facility] Comment on above: Performed By: #### 1 [id number], [id number], [id number] #### [facility] (DEFAULT) [address] [place] [address] Baso Abs# 0.0 x10 Normal 0.0-0.[address] [facility] Comment on above: Performed By: #### 1 [id number], [id number], [id number] #### [facility] (DEFAULT) [address] [place] [address] 41027 Basophils/100 WBC (Bld) 0.2 % Normal 0.2-2.[address] [facility] Comment on above: Performed By: #### 1 [id number], [id number], [id number] #### [facility] (DEFAULT) [address] [place] [address] 06222 Eos Abs# 0.1 x10 Normal 0.0-0.[address] [facility] Comment on above: Performed By: #### 1 [id number], [id number], [id number] #### [facility] (DEFAULT) [address] [place] [address] 48978 Eosinophils/100 WBC (Bld) 0.5 % Low 0.9-4.[address] [facility] Comment on above: Performed By: #### 1 [id number], [id number], [id number] #### [facility] (DEFAULT) [address] [place] [address] 62640 Lymphocytes (Bld) [#/Vol] 1.1 x10 Low 1.3-2.[address] [facility] Comment on above: Performed By: #### 1 [id number], [id number], [id number] #### [facility] (DEFAULT) [address] [place] [address] Lymphocytes/100 WBC (Bld) 9 % Low 14-[address] [facility] Comment on above: Performed By: #### 1 [id number], 46573674, [id number] #### [facility] (DEFAULT) [address] [place] [address] Ross Abs# 1.0 x10 High 0.0-0.[address] [facility] Comment on above: Performed By: #### 1 [id number], [id number], [id number] #### [facility] (DEFAULT) [address] [place] [address] Neut Abs# 9.6 x10 High 1.5-9.[address] [facility] Comment on above: Performed By: #### 1 [id number], [id number], [id number] #### [facility] (DEFAULT) [address] [place] [address] 72694 Neutrophils/100 WBC (Bld) 82 % Normal 44-[address] [facility] Comment on above: Performed By: #### 1 [id number], 72372945, [id number] #### [facility] (DEFAULT) [address] [place] [address] ABORhon 09-25-2019 ABO and Rh group Nom (Bld) Hx Check: Not Found Anti-A: 4+ Anti-B: 0 Anti-D: 4+ DCon: NT A1: 0 B: 4+ ABORh Interp: A POS [facility] Comment on above: Performed By: #### 7 [id number], [id number], [id number] #### [facility] (DEFAULT) [address] [place] [address] 50017 ABORh Retypeon 09-25-2019 ABO and Rh group Nom (Bld) Ordered by Discern. Anti-A: 4+ Anti-B: 0 Anti-D: 4+ DCon: NT A1: 0 B: 4+ ABORh Retype: A POS [facility] Comment on above: Performed By: #### 7 [id number], [id number], [id number] #### [facility] (DEFAULT) [address] [place] [address] ABSC Gelon 09-25-2019 ABSC Gel Negative Normal [facility] Comment on above: Performed By: #### 7 [id number], [id number], [id number] #### [facility] (DEFAULT) [address] [place] [address] Anesthesia Noteon 09-25-2019 Anesthesia Note Patient: DONTAE [...] risk of pressure sore / SNOMED CT 516602166 / Confirmed CAD (coronary artery disease) / SNOMED CT 63462619 / Confirmed Hyperlipidemia / SNOMED CT 96957270 / Confirmed Hypertension / SNOMED CT 4050476322 / Confirmed Skin cancer / SNOMED CT 4207881220 / Confirmed Osteoporosis / SNOMED CT 561611010 / Confirmed Restless leg syndrome / SNOMED CT 42580269 / Confirmed Resolved: GERD (gastroesophageal reflux disease) / SNOMED CT 674304333 Histories Family History: Cancer Sister Brother Aneurysm Mother CHF - Congestive heart failure Father AK (myocardial infarction) Sister Procedure history: Umbilical hernia (4028997676). Arthroscopy (22490439). Comments: 08/29/2019 12:57 Dionne Mccarty RN arthroscopy of knee Cholecystectomy (50787762). Hysterectomy (522542888). Cataract (004921158). Shoulder (28679561). Comments: 08/29/2019 12:58 Dionne Mccarty RN arthroscopy CABG (Coronary artery bypass grafting) planned (156928580). Colonoscopy (916623229). EGD - Esophagogastroduodenoscopy (0072140763). Meniscectomy (761652087). Hip arthroplasty (666638329). Social History Electronic Cigarette/Vaping Assessment Electronic Cigarette [...] axis dev, LAFB, RV conduction delay. Plan [place] [employer]#(ASA) physical status classification: Class III. Anesthetic Preoperative Plan Anesthesia: Regional Spinal. Anesthetic plan, risks, benefits, and alternatives discussed with the patient and/or family. Patient verbalized understanding. Informed consent was given. Consent was signed by the patient. [Electronically Signed on: 09/25/2019 10:10 EDT] Enrike Mora MD [Verified on: 09/25/2019 10:10 EDT] Enrike Mora MD Normal [facility] Blood Bank IDon 09-25-2019 Blood Bank ID BBID: [id number] [facility] Comment on above: Performed By: #### 7 [id number], [id number], [id number] #### [facility] (DEFAULT) [address] [place] [address] 89563 CBC w/ Auto Diffon 0 Erythrocyte distribution width (RBC) [Ratio] 14.4 % Normal 11.5-15.[address] [facility] Comment on above: Performed By: #### 1 [id number], 82367910, [id number] #### [facility] (DEFAULT) [address] [place] [address] 65063 Hematocrit (Bld) [Volume fraction] 39.2 % Normal 33.7-40.[address] [facility] Comment on above: Performed By: #### 1 [id number], 45019998, 1204480 #### [facility] (DEFAULT) [address] [place] [address] Hemoglobin (Bld) [Mass/Vol] 12.8 g/dL Normal 11.3-15.[address] [facility] Comment on above: Performed By: #### 1 [id number], 26173437, 2438794 #### [facility] (DEFAULT) [address] [place] [address] Man Diff? Auto Normal [facility] Comment on above: Performed By: #### 1 [id number], 28449149, 9159719 #### [facility] (DEFAULT) [address] [place] [address] MCH (RBC) [Entitic mass] 33 pg Normal 24-[address] [facility] Comment on above: Performed By: #### 1 [id number], 72777036, 3159658 #### [facility] (DEFAULT) [address] [place] [address] 81131 MCHC (RBC) [Mass/Vol] 33 g/dL Normal 26-[address] [facility] Comment on above: Performed By: #### 1 [id number], 37594262, 5708895 #### [facility] (DEFAULT) [address] [place] [address] MCV (RBC) [Entitic vol] 102 fL High 81-[address] [facility] Comment on above: Performed By: #### 1 [id number], 11815594, 3605349 #### [facility] (DEFAULT) [address] [place] [address] Platelet mean volume (Bld) [Entitic vol] 9.4 fL Normal 6.3-10.[address] [facility] Comment on above: Performed By: #### 1 [id number], 31305884, 7213414 #### [facility] (DEFAULT) [address] [place] [address] Platelets (Bld) [#/Vol] 272 x10 Normal 138-[address] [facility] Comment on above: Performed By: #### 1 [id number], 67816593, 7165784 #### [facility] (DEFAULT) [address] [place] [address] RBC (Bld) [#/Vol] 3.85 x10 Normal 3.70-5.30 [facility] Comment on above: Performed By: #### 1 [id number], 52439216, 2592482 #### [facility] (DEFAULT) [address] [place] [address] WBC (Bld) [#/Vol] 11.7 x10 High 3.5-10.5 [facility] Comment on above: Performed By: #### 1 [id number], 49493487, 5646440 #### [facility] (DEFAULT) [address] [place] [address] Extra Chauncey 09-25-2019 Tube Collected Yes [facility] Comment on above: Performed By: #### 7 [id number], 63549463, [id number] #### [facility] (DEFAULT) [address] [place] [address] H&Hon 09-25-2019 Hematocrit (Bld) [Volume fraction] 39.9 % Normal 33.7-40.[address] [facility] Comment on above: Performed By: #### 7 047544, 42140326, [id number] #### [facility] (DEFAULT) [address] [place] [address] Hemoglobin (Bld) [Mass/Vol] 12.7 g/dL Normal 11.3-15.[address] [facility] Comment on above: Performed By: #### 7 730907, 15324341, [id number] #### [facility] (DEFAULT) [address] [place] [address] History and Physicalon 09-24 History and Physical [id number] Normal [facility] MAGR Intraoperative Recordon 09-25-2019 MAGR Intraoperative Record MAGR Intra-Op Record Summary Primary Physician: Mi Licea DO Finalized Date/Time: 09/25/19 15:04:11 Pt. Name: DELICIA HSU /Sex: 1935 FEMALE Med Rec #: [id number] Physician: Mi Licea DO Financial #: [id number] Pt. Type: I Room/Bed: [facility] Admit/Disch: 09/25/19 06:52:00 - Institution: Case Times [...] Role Performed Surgeon - Primary Anesthesiologist of Scarf Gluer Record Time In 09/25/19 09:37:00 09/25/19 09:37:00 09/25/19 09:37:00 Time Out 09/25/19 11:50:00 09/25/19 11:50:00 09/25/19 11:50:00 Procedure Arthroplasty Total Arthroplasty Total Arthroplasty Total Hip(Left) Hip(Left) Hip(Left) Last Modified By: Marj Sullivan RN, Stephanie RN Sauer, Stephanie RN 09/25/19 12:54:58 09/25/19 12:54:58 09/25/19 12:54:58 Entry 4 Entry 5 Entry 6 Case Attendee Montrell MCKEON, Shantal Moreira Leigh-Ann CST Role Performed Scrub Personnel Sumatra Opener Sumatra Opener Time In 09/25/19 09:37:00 09/25/19 09:37:00 09/25/19 09:37:00 Time Out 09/25/19 11:50:00 09/25/19 11:50:00 09/25/19 11:50:00 Procedure Arthroplasty Total Arthroplasty Total Arthroplasty Total Hip(Left) Hip(Left) Hip(Left) Last Modified By: Marj Sullivan RN, Stephanie RN Sauer, Stephanie RN 09/25/19 12:54:58 09/25/19 12:54:58 09/25/19 12:54:58 General Comments: Robel DePuy Rep Surgical Procedures MAGR Pre-Care Text: A.20 Verifies operative procedure, surgical site, and laterality Im.150 Develops individualized plan of care Entry 1 Procedure Arthroplasty Total Hip Primary Procedure Yes Primary Surgeon Mi Licea Modifiers Left Eduardo DO Surgeon Comment LEFT TOTAL [...] Mi Licea Outcome Met (O.130) Yes Eduardo Shaw Modified By: Marj Sullivan RN 09/25/19 11:31:59 [...] 50MM 6.5 X 30MM 6.5 X 15MM Leaf Size Picker DEPUY DEPUY DEPUY Catalog # Lot Number [id number] Expiration Date 05/08/24 03/10/29 01/07/29 Serial Number [id number] REF 1217-30-500 REF 1217-15-500 Device Identifier Human Readable EDDA Machine Readable EDDA MR Class Implant Usage Data Site Hip L Hip L Hip L Quantity 1 1 1 Reason for Explant Reason Not Retained 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 Sterility External Indicator Result Internal Indicator Results [...] DO Size 6.5 X 15MM 50MM PS Leaf Size Picker DEPUY Health Data [employer] Catalog # Lot Number [id number] Expiration Date 11/07/28 04/07/29 04/07/29 Serial Number REF 1217-15-500 REF 1217-32-050 REF 1246-03-000 Device Identifier Human Readable EDDA Machine Readable EDDA MR Class Implant Usage Data Site Hip L Hip L Hip L Quantity 1 1 1 Reason for Explant Reason Not Retained 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 Sterility External Indicator Result Internal Indicator Results [...] [place] DO Size 135 SHORT NECK COLLAR 12/14 TAPER SIZE 11 Leaf Size Picker DEPUY DEPUY Catalog # Lot Number [id number] Expiration Date 02/08/24 02/08/24 Serial Number REF [id number] REF 1365-22-000 Device Identifier Human Readable EDDA Machine Readable EDDA MR Class Implant Usage Data Site Hip L Hip L Quantity 1 1 Reason for Explant Reason Not Retained 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 Name: DELICIA HSU Jean Carlos Cha/Sex: 1935 FEMALE Med Rec #: [id number] Physician: Mi Licea DO Financial #: [id number] Pt. Type: I Room/Bed: 221/1 Admit/Disch: 09/25/19 06:52:00 - Institution: PACU Case Times MAGR Entry 1 In PACU I 09/25/19 11:50:00 Discharge from PACU 09/25/19 12:40:00 I Last Modified By: Dionne Yun RN 09/25/19 12:53:35 Finalized By: Dionne Yun RN Document Signatures Signed By: Dionne Yun RN 09/25/19 12:53 [facility] MAGR Preoperative Recordon 0 09-25-2019 MAGR Preoperative Record MAGR Pre-Op Record Summary Primary Physician: Mi Licea DO Finalized Date/Time: 09/25/19 11:58:52 Pt. Name: ARACELIS DELICIA Cha/Sex: 1935 FEMALE Med Rec #: [id number] Physician: Mi Licea DO Financial #: [id number] Pt. Type: I Room/Bed: 221/1 Admit/Disch: 09/25/19 [...] Signed By: Dionne Yun RN 09/25/19 11:58 [facility] Nutrition Noteon 09-25-2019 Nutrition Note Pt admitted for sche duled Lt total hip sx; placed on a Regular diet as tolerated w/ post op supplements BID along w/ usual vitamin/mineral supplementation. Nutritional supplements adjusted to what's available in house. Per pro shop attendant assessment, Pt reports wt loss of 2-13lb, [...] associates to offer prunes/prune alfred q am. 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 for hip fracture Postoperative diagnosis: Same Procedure: Removal of deep hardware from left hip Left total hip arthroplasty Surgeon: Libby Licea, D.Zan Anesthesia: Spinal Indications for surgery: Ongoing pain [...] on: 10/18/2019 21:39 EDT] Mi Licea DO [facility] Pharmacy Noteon 09-25-2019 Pharmacy Note I have [...] [Verified on: 09/25/2019 13:26 EDT] Virgie Santos [facility] Pharmacy Note I have personally re viewed [...] Marj Mccall [Verified on: 09/25/2019 13:04 EDT] Stefany Marj [facility] Progress Note - Nurseon - TSH Qn Pt states that she i s having pain in her lt hip and neck #8 on the scale. Pt also complains of freezing . Temp 97.8. Pt given a warm blanket and medicated with Morphine 2mg IVP as ordered. [Electronically Signed on: 09/25/2019 19:48 EDT] Indy Vidal RN [Verified on: 09/25/2019 19:48 EDT] Indy Vidal RN [facility] Progress Note - Nurse Complaining of cramping [...] Cruz RN [Verified on: 09/25/2019 19:51 EDT] Nancy CHAIDEZ, Twila [facility] UA [id number] 09-25-2019 RBC (U) [#/Vol] 0-2 [facility] Comment on above: Order Comment: Urina lysis Microscopic order added on by Discern Expert Rules system. Performed By: #### 7 [id number], [id number], [id number] #### [facility] (DEFAULT) [address] [place] [address] UA Bacteria 4+ [facility] Comment on above: Order Comment: Urina lysis Microscopic order added on by Discern Expert Rules system. Performed By: #### 7 489272, 31594054, [id number] #### [facility] (DEFAULT) [address] [place] [address] UA Squam Epi Rare [facility] Comment on above: Order Comment: Urina lysis Microscopic order added on by [employer] Expert Rules system. Performed By: #### 7 056710, [id number], [id number] #### [facility] (DEFAULT) [address] [place] [address] UA WBC 0-2 [facility] Comment on above: Order Comment: Urina lysis Microscopic order added on by [employer] Expert Rules system. Performed By: #### 7 681783, [id number], [id number] #### [facility] (DEFAULT) [address] [place] [address] UA w Culture if Ind Standard on 09-25-2019 Breakpoint UA [facility] Comment on above: Order Comment: sim insert Performed By: #### 7 492217, [id number], [id number] #### [facility] (DEFAULT) [address] [place] [address] Color (U) Yellow [facility] Comment on above: Order Comment: sim insert Performed By: #### 7 865053, [id number], [id number] #### [facility] (DEFAULT) [address] [place] [address] Culture? Indicated [facility] Comment on above: Order Comment: sim insert Performed By: #### 7 318256, [id number], [id number] #### [facility] (DEFAULT) [address] [place] [address] 68816 Glucose (U) [Mass/Vol] Negative Normal [facility] Comment on above: Order Comment: sim insert Performed By: #### 7 867315, [id number], [id number] #### [facility] (DEFAULT) [address] [place] [address] 86978 Ketones Ql (U) Negative Normal [facility] Comment on above: Order Comment: sim insert Performed By: #### 7 590350, 47751921, [id number] #### [facility] (DEFAULT) [address] [place] [address] 22945 Micro? Indicated [facility] Comment on above: Order Comment: sim insert Performed By: #### 7 575605, [id number], [id number] #### [facility] (DEFAULT) [address] [place] [address] 74897 UA Bilirubin Negative [facility] Comment on above: Order Comment: sim insert Performed By: #### 7 025561, 73384623, [id number] #### [facility] (DEFAULT) [address] [place] [address] 38028 UA Blood Negative Normal [facility] Comment on above: Order Comment: sim insert Performed By: #### 7 143985, 30242573, [id number] #### [facility] (DEFAULT) [address] [place] [address] 11046 UA Clarity CLEAR Normal CLEAR [facility] Comment on above: Order Comment: sim insert Performed By: #### 7 [id number], 46666518, [id number] #### [facility] (DEFAULT) [address] [place] [address] 57382 UA Leuk Est SMALL Abnormal NEGATIVE [facility] Comment on above: Order Comment: sim insert Performed By: #### 7 445835, 40891920, [id number] #### [facility] (DEFAULT) [address] [place] [address] 34559 UA Nitrite Positive Abnormal NEGATIVE [facility] Comment on above: Order Comment: sim insert Performed By: #### 7 018004, 32050620, [id number] #### [facility] (DEFAULT) [address] [place] [address] 11922 UA pH 7.0 Normal 5-[address] [facility] Comment on above: Order Comment: sim insert Performed By: #### 7 458019, 38138902, [id number] #### [facility] (DEFAULT) [address] [place] [address] 72161 UA Protein Negative Normal NEGATIVE [facility] Comment on above: Order Comment: sim insert Performed By: #### 7 402928, 38811715, [id number] #### [facility] (DEFAULT) [address] [place] [address] 03366 UA Spec Grav 1.020 Normal 1.001-1.[address] [place] [address] Comment on above: Order Comment: sim insert Performed By: #### 7 722878, 76789501, [id number] #### [facility] (DEFAULT) [address] [place] [address] 66774 UA Urobilinogen 0.2 mg/dL Normal 0.2-1.[address] [facility] Comment on above: Order Comment: sim insert Performed By: #### 7 814654, 84235074, [id number] #### [facility] (DEFAULT) [address] [place] [address] 07841 Urine Source Clean Catch Normal [facility] Comment on above: Order Comment: sim insert Performed By: #### 7 394463, 83319817, [id number] #### [facility] (DEFAULT) [address] [place] [address] 73691 XR Hip Complete Lefton 09-24 XR Hip [...] MD 09/25/19 3:55 pm Technologist: OCHOA NAZARIO [facility] Patient Handouton 09-24-2019 Patient Handout [facility] Progress Note - Nurseon 09-08 Progress Note - Nurse Spoke with pt regarding arrival time of 0700 and NPO status. Verbalized understanding. [Electronically Signed on: 09/22/2019 09:47 EDT] Kimberley Holden RN [Verified on: 09/22/2019 09:47 EDT] Kimberley Holden RN [facility] SARS-CoV-2 (COVID-19) PCRon 09-22-2019 COVID-19 PCR Not Detected Normal Not Detected [facility] Comment on above: Performed By: #### 7 736657, [id number], [id number] #### [facility] (DEFAULT) [address] [place] [address] Employed in healthcare? Unknown [facility] Comment on above: Performed By: #### 7 850293, [id number], [id number] #### [facility] (DEFAULT) [address] [place] [address] Group care resident? Unknown [facility] Comment on above: Performed By: #### 7 436646, 31234468, [id number] #### [facility] (DEFAULT) [address] [place] [address] Hospitalized due to COVID-19? Unknown [facility] Comment on above: Performed By: #### 7 798527, [id number], [id number] #### [facility] (DEFAULT) [address] [place] [address] In ICU? Unknown [facility] Comment on above: Performed By: #### 7 611087, [id number], [id number] #### [facility] (DEFAULT) [address] [place] [address] 87544 status? Unknown [facility] Comment on above: Performed By: #### 7 758790, [id number], [id number] #### [facility] (DEFAULT) [address] [place] [address] 96877 Symptomatic as defined by CDC? Unknown [facility] Comment on above: Performed By: #### 7 [id number], [id number], [id number] #### [facility] (DEFAULT) [address] [place] [address]305 Coding Summaryon 09-13-2019 Coding Summary CODING DATE: [facility] STATUS: Home PAYOR: Medicare APC DESCRIPTION 5733 Level 3 Minor Procedures ADMIT DX: REASON FOR VISIT DX: Z01.818 Encounter for other preprocedural examination I10 Essential (primary) hypertension I25.10 Atherosclerotic heart disease of [place] coronary artery without angina pectoris FINAL DX: PRINCIPAL: Z01.818 Encounter for other preprocedural examination SECONDARY: I10 Essential (primary) hypertension I25.10 Atherosclerotic heart disease of [place] coronary artery without angina pectoris K21.9 Gastro-esophageal [...] Marisela Lawrence Date Saved: 09/13/2019 09:18 am [facility] Coding Summaryon 09-06-2019 Coding Summary CODING DATE: [facility] STATUS: Home PAYOR: Medicare APC DESCRIPTION 5733 Level 3 Minor Procedures ADMIT DX: REASON FOR VISIT DX: Z01.818 Encounter for other preprocedural examination I10 Essential (primary) hypertension I25.10 Atherosclerotic heart disease of [place] coronary artery without angina pectoris FINAL DX: PRINCIPAL: Z01.818 Encounter for other preprocedural examination SECONDARY: I10 Essential (primary) hypertension I25.10 Atherosclerotic heart disease of [place] coronary artery without angina pectoris K21.9 Gastro-esophageal reflux disease without esophagitis PYMT PROC APC STAT DESCRIPTION DOCTOR NAME DATE NOTE: The code number assigned matches the documented diagnosis and / or procedure in the patient's chart. However, the narrative phrase printed from the coding software may appear abbreviated, or result in slightly different terminology. Coded By: Marisela Lawrence Date Saved: 09/06/2019 09:20 am [facility] Progress Note - Nurseon 08-09 Progress Note - Nurse chart reviewed per Dr Akbar anesthesiologist, and cleared for surgery on 09/25/2019 [Electronically Signed on: 09/04/2019 14:30 EDT] Nimco Albarado RN [Verified on: 09/04/2019 14:30 EDT] Nimco Albarado RN [facility] Progress Note - Nurse Xin at Dr Licea notified that pt has positive urine culture. [Electronically Signed on: 09/04/2019 13:37 EDT] Dionne Yun RN [Verified on: 09/04/2019 13:37 EDT] Dionne Yun RN [facility] Provider Orderson 09-04-2019 Provider Orders [id number] [facility] C Urineon 09-03-2019 C Urine Urine Culture [...] S <=4 Verified Tri/Sulf S <=2/38 Verified [facility] Comment on above: Performed By: #### 1 [id number], [id number], [id number] #### [facility] (DEFAULT) [address] [place] [address] C MRSA Screenon 09-02-2019 C MRSA Screen Negative [facility] Comment on above: Performed By: #### 1 [id number] #### [facility] (DEFAULT) [address] [place] [address] .Auto Diff 1on 09-01-2019 Auto Ross % 10 % Normal -[address] [facility] Comment on above: Performed By: #### 7 [id number], [id number], [id number] #### [facility] (DEFAULT) [address] [place] [address] Baso Abs# 0.0 x10 Normal 0.0-0.[address] [facility] Comment on above: Performed By: #### 7 221040, [id number], [id number] #### [facility] (DEFAULT) [address] [place] [address] 35205 Basophils/100 WBC (Bld) 0.3 % Normal 0.2-2.[address] [facility] Comment on above: Performed By: #### 7 641568, [id number], [id number] #### [facility] (DEFAULT) [address] [place] [address] 25154 Eos Abs# 0.1 x10 Normal 0.0-0.[address] [facility] Comment on above: Performed By: #### 7 928560, [id number], [id number] #### [facility] (DEFAULT) [address] [place] [address] 60504 Eosinophils/100 WBC (Bld) 0.9 % Normal 0.9-4.[address] [facility] Comment on above: Performed By: #### 7 249302, [id number], [id number] #### [facility] (DEFAULT) [address] [place] [address] 09318 Lymphocytes (Bld) [#/Vol] 1.0 x10 Low 1.3-2.[address] [facility] Comment on above: Performed By: #### 7 365886, [id number], [id number] #### [facility] (DEFAULT) [address] [place] [address] 42882 Lymphocytes/100 WBC (Bld) 10 % Low 14-[address] [facility] Comment on above: Performed By: #### 7 085643, [id number], [id number] #### [facility] (DEFAULT) [address] [place] [address] 62310 Ross Abs# 1.0 x10 High 0.0-0.[address] [facility] Comment on above: Performed By: #### 7 734960, [id number], [id number] #### [facility] (DEFAULT) [address] [place] [address] 58150 Neut Abs# 8.0 x10 Normal 1.5-9.[address] [facility] Comment on above: Performed By: #### 7 278751, [id number], [id number] #### [facility] (DEFAULT) [address] [place] [address] 82771 Neutrophils/100 WBC (Bld) 79 % Normal 44-[address] [facility] Comment on above: Performed By: #### 7 778198, 30952217, [id number] #### [facility] (DEFAULT) [address] [place] [address] 7[address] [facility] Standardon 09-01-2019 eGFR Non AA 44 mL/min/1.73m2 [facility] Comment on above: Performed By: #### 7 284807, [id number], [id number] #### [facility] (DEFAULT) [address] [place] [address] 31377 eGFR AA 54 mL/min/1.73m2 [facility] Comment on above: Result Comment: Hematology Nurse Educator kody Kidney disease could be indicated at eGFRs of less than 60 ml/min/1.73m2. Kidney Failure is indicated at less than 15 ml/min/1.73m2 Performed By: #### 7 508617, 04900768, [id number] #### [facility] (DEFAULT) [address] [place] [address] 96974 Anion gap [Moles/Vol] 15.0 mmol/L Normal 5.0-19.[address] [facility] Comment on above: Performed By: #### 7 062449, 91360044, [id number] #### [facility] (DEFAULT) [address] [place] [address] 14832 Calcium [Mass/Vol] 9.2 mg/dL Normal 8.9-10.3 [facility] Comment on above: Performed By: #### 7 558143, 30423719, [id number] #### [facility] (DEFAULT) [address] [place] [address] 35503 Chloride [Moles/Vol] 101 mmol/L Normal 101-[address] [facility] Comment on above: Performed By: #### 7 151032, 35605821, [id number] #### [facility] (DEFAULT) [address] [place] [address] 98862 CO2 [Moles/Vol] 25 mmol/L Normal 21-[address] [facility] Comment on above: Performed By: #### 7 853931, 69889883, [id number] #### [facility] (DEFAULT) [address] [place] [address] 22566 Creatinine [Mass/Vol] 1.17 mg/dL Normal 0.60-1.[address] [facility] Comment on above: Performed By: #### 7 828651, 90886657, [id number] #### [facility] (DEFAULT) [address] [place] [address] 24605 Glucose [Mass/Vol] 94.0 mg/dL Normal 74.0-118.0 [facility] Comment on above: Performed By: #### 7 578806, 76506400, [id number] #### [facility] (DEFAULT) [address] [place] [address] 93143 Osmolality [Osmolality] 276 mOsm/L [facility] Comment on above: Performed By: #### 7 783097, 44309129, [id number] #### [facility] (DEFAULT) [address] [place] [address] 12635 Potassium [Moles/Vol] 4.0 mmol/L Normal 3.6-5.[address] [facility] Comment on above: Performed By: #### 7 350292, 37104523, [id number] #### [facility] (DEFAULT) [address] [place] [address] 71998 Sodium [Moles/Vol] 137.0 mmol/L Normal 136.0-144 . [address] [facility] Comment on above: Performed By: #### 7 302426, 50736789, [id number] #### [facility] (DEFAULT) [address] [place] [address] 02530 Urea nitrogen [Mass/Vol] 20 mg/dL Normal 8-[address] [facility] Comment on above: Performed By: #### 7 851456, 66195232, [id number] #### [facility] (DEFAULT) [address] [place] [address] 09594 Urea nitrogen/Creatinine [Mass ratio] 17.0 mg/mg High 4.6-16.[address] [facility] Comment on above: Performed By: #### 7 706720, 87538891, [id number] #### [facility] (DEFAULT) [address] [place] [address] CBC w/ Auto Diffon 0 Erythrocyte distribution width (RBC) [Ratio] 13.9 % Normal 11.5-15.[address] [facility] Comment on above: Performed By: #### 7 498332, 25809266, [id number] #### [facility] (DEFAULT) [address] [place] [address] Hematocrit (Bld) [Volume fraction] 38.5 % Normal 33.7-40.[address] [facility] Comment on above: Performed By: #### 7 200391, 07626092, [id number] #### [facility] (DEFAULT) [address] [place] [address] Hemoglobin (Bld) [Mass/Vol] 12.6 g/dL Normal 11.3-15.[address] [facility] Comment on above: Performed By: #### 7 923079, 45499238, [id number] #### [facility] (DEFAULT) [address] [place] [address] Man Diff? Auto Normal [facility] Comment on above: Performed By: #### 7 834484, 29386449, [id number] #### [facility] (DEFAULT) [address] [place] [address] MCH (RBC) [Entitic mass] 33 pg Normal 24-[address] [facility] Comment on above: Performed By: #### 7 329878, 30035548, [id number] #### [facility] (DEFAULT) [address] [place] [address] MCHC (RBC) [Mass/Vol] 33 g/dL Normal 26-[address] [facility] Comment on above: Performed By: #### 7 710381, 33645088, [id number] #### [facility] (DEFAULT) [address] [place] [address] MCV (RBC) [Entitic vol] 101 fL High 81-[address] [facility] Comment on above: Performed By: #### 7 355201, 81606779, [id number] #### [facility] (DEFAULT) [address] [place] [address] 51471 Platelet mean volume (Bld) [Entitic vol] 9.5 fL Normal 6.3-10.[address] [facility] Comment on above: Performed By: #### 7 896333, 13257014, [id number] #### [facility] (DEFAULT) [address] [place] [address] 52674 Platelets (Bld) [#/Vol] 292 x10 Normal 138-[address] [facility] Comment on above: Performed By: #### 7 087672, 68119321, [id number] #### [facility] (DEFAULT) [address] [place] [address] 68920 RBC (Bld) [#/Vol] 3.82 x10 Normal 3.70-5.30 [facility] Comment on above: Performed By: #### 7 493085, 62134607, [id number] #### [facility] (DEFAULT) [address] [place] [address] 95272 WBC (Bld) [#/Vol] 10.1 x10 Normal 3.5-10.5 [facility] Comment on above: Performed By: #### 7 204527, 73806675, [id number] #### [facility] (DEFAULT) [address] [place] [address] UA [id number] 09-01-2019 RBC (U) [#/Vol] None Seen [facility] Comment on above: Order Comment: Urina lysis Microscopic order added on by [employer] system. Performed By: #### 1 [id number], 24659097, [id number] #### [facility] (DEFAULT) [address] [place] [address] 16827 UA Amorph. 1+ Normal [facility] Comment on above: Order Comment: Urina lysis Microscopic order added on by [employer] system. Performed By: #### 1 [id number], 34854126, [id number] #### [facility] (DEFAULT) [address] [place] [address] 35882 UA Bacteria 4+ Normal [facility] Comment on above: Order Comment: Urina lysis Microscopic order added on by [employer] system. Performed By: #### 1 [id number], 68762024, [id number] #### [facility] (DEFAULT) [address] [place] [address] UA Squam Epi Moderate [facility] Comment on above: Order Comment: Urina lysis Microscopic order added on by [employer] system. Performed By: #### 1 [id number], 16205057, 3779360 #### [facility] (DEFAULT) [address] [place] [address] UA WBC 15-20 [facility] Comment on above: Order Comment: Urina lysis Microscopic order added on by [employer] system. Performed By: #### 1 [id number], 69432530, 3023904 #### [facility] (DEFAULT) [address] [place] [address] UA w Culture if Ind Standard on 09-01-2019 Breakpoint UA [facility] Comment on above: Performed By: #### 1 [id number], 62069640, 7671768 #### [facility] (DEFAULT) [address] [place] [address] Color (U) Yellow [facility] Comment on above: Performed By: #### 1 [id number], 15862289, 3620071 #### [facility] (DEFAULT) [address] [place] [address] Culture? Yes [facility] Comment on above: Performed By: #### 1 [id number], 71379605, 1012287 #### [facility] (DEFAULT) [address] [place] [address] 71790 Glucose (U) [Mass/Vol] Negative [facility] Comment on above: Performed By: #### 1 [id number], 53752537, 5398228 #### [facility] (DEFAULT) [address] [place] [address] 15303 Ketones Ql (U) Negative [facility] Comment on above: Performed By: #### 1 [id number], 18791872, 1449070 #### [facility] (DEFAULT) [address] [place] [address] Micro? Indicated [facility] Comment on above: Performed By: #### 1 [id number], 05437844, 5614534 #### [facility] (DEFAULT) [address] [place] [address] 66076 UA Bilirubin Negative Normal [facility] Comment on above: Performed By: #### 1 [id number], 05458555, 6661331 #### [facility] (DEFAULT) [address] [place] [address] 93020 UA Blood TRACE Abnormal NEGATIVE [facility] Comment on above: Performed By: #### 1 [id number], 33466690, 0175547 #### [facility] (DEFAULT) [address] [place] [address] UA Clarity CLEAR Normal CLEAR [facility] Comment on above: Performed By: #### 1 [id number], 76771338, 6030622 #### [facility] (DEFAULT) [address] [place] [address] 81631 UA Leuk Est MODERATE Abnormal NEGATIVE [facility] Comment on above: Performed By: #### 1 [id number], 79076913, [id number] #### [facility] (DEFAULT) [address] [place] [address] UA Nitrite Positive Abnormal NEGATIVE [facility] Comment on above: Performed By: #### 1 [id number], 56751268, 2265119 #### [facility] (DEFAULT) [address] [place] [address] 97191 UA pH 5.5 Normal 5-[address] [facility] Comment on above: Performed By: #### 1 [id number], 17722648, 3800742 #### [facility] (DEFAULT) [address] [place] [address] 64311 UA Protein Negative Normal NEGATIVE [facility] Comment on above: Performed By: #### 1 [id number], 75185074, 1407773 #### [facility] (DEFAULT) [address] [place] [address] 54709 UA Spec Grav 1.025 Normal 1.001-1.[address] [facility] Comment on above: Performed By: #### 1 [id number], 87941973, 2939871 #### [facility] (DEFAULT) [address] [place] [address] 34563 UA Urobilinogen 0.2 mg/dL Normal 0.2-1.[address] [facility] Comment on above: Performed By: #### 1 [id number], 53738451, 3665797 #### [facility] (DEFAULT) [address] [place] [address] 70978 Urine Source Clean Catch Normal [facility] Comment on above: Performed By: #### 1 [id number], 34970948, 8463047 #### [facility] (DEFAULT) [address] [place] [address] 99867 JOINT PAIN INJECTIONon 09-06 JOINT PAIN INJECTION [facility] Department of Radiology [address] [place] [id number] Patient Name: DELICIA HSU : 1935 Sex: F Age: Race: White Pt. Location: Patient Status: D Ordered Date: 08/08/2018 3:50:00 PM Completed Date: 09/06/2018 03:43 PM Requesting Provider: HERMELINDO HILLMAN Attending Provider: HERMELINDO HILLMAN Report Copy To: GYPSY MCMAHON Signs & Symptoms: M16.12 Unilateral primary osteoarthritis, left hip I10 History: Faina Comments: , Dr. Ochoa , Body Part: [...] guidance. Electronically signed by:Christy Ochoa. Transcribed by: [email or web address], User Resident: Electronically Signed by: CHRISTY OCHOA @ 09/09/2018 05:57 PM [facility] Comment on above: Order Comment: , Dr. Ochoa , Body Part: Hip , Side: LEFT , Dr. Ochoa , Body Part: Hip , Side: LEFT , , , Ordering Provider - HERMELINDO HILLMAN MD , CT 3D LOWER EXTREMITY WO CON TRAST LEFTon 08-02-2018 CT 3D LOWER EXTREMITY WO CONTRAST LEFT [facility] Department of Radiology [address] [place] [id number] Patient Name: DELICIA HSU : 1935 Sex: F Age: Race: White Pt. Location: Patient Status: D Ordered Date: 07/22/2018 9:55:00 AM Completed Date: 08/02/2018 09:41 AM Requesting Provider: MIRTHA VELÁSQUEZ Attending Provider: MIRTHA VELÁSQUEZ Report Copy To: GYPSY MCMAHON Signs & Symptoms: S72.045D Nondisp fx of base of nk of l femr, 7thD I10 History: Faina, PHONE:[phone] OR [phone],*NEEDS ORTHO F/U APPT. MEDICARE NO PC REQ [...] arthritis. Electronically signed by:Coy Jerome. Transcribed by: [email or web address], User Resident: Electronically Signed by: COY JEROME @ 08/08/2018 02:20 PM Normal [facility] Comment on above: Order Comment: , Jessie perkins left hip healing HIP LEFT 1 OR 2 VWS WITH PEL VISon 03-18-2018 HIP LEFT 1 OR 2 VWS WITH PELVIS [facility] Department of Radiology [address] [place] [phone] Patient Name: DELICIA HSU : 1935 Sex: F Age: Race: White Pt. Location: 84 Patient Status: Ordered Date: 03/18/2018 1:20:00 PM Completed Date: 03/18/2018 01:54 PM Requesting Provider: MIRTHA VELÁSQUEZ Attending Provider: Report Copy To: Signs & Symptoms: S72.045D Nondisp fx of base of nk of l femr, 7thD I10 History: Faina Comments: , , , Ordering Rebeka MORENO-C , Exam: HIP LEFT 1 OR 2 VWS WITH PELVIS HIP LEFT 1 OR 2 VWS WITH PELVIS 03/18/2018 1:54 PM EST SIGNS AND SYMPTOMS: S72.045D Nondisp fx of base of nk of l femr, 7thD I10 TECHNOLOGIST COMMENTS: History of left hip surgery 06/04/2017. Ortho follow up. QUESTION FOR THE RADIOLOGIST: , , , Ordering Rebeka MORENO-C , PROTOCOL: AP(PA) and Lateral views were obtained. COMPARISON: January 10, 2018 FINDINGS: Soft tissues: No change Bones: No change Joints: No change IMPRESSION: Left femoral neck fracture with screw fixation superimposed upon senescent and degenerative skeleton similar to prior study Electronically signed by:Coy Jerome. Transcribed by: [email or web address], User Resident: Electronically Signed by: COY JEROME @ 03/18/2018 02:19 PM Normal [facility] Comment on above: Order Comment: , , = ========= , Ordering Rebeka TIJERINAC , HIP LEFT 1 OR 2 VWS WITH PEL VISon 01-10-2018 HIP LEFT 1 OR 2 VWS WITH PELVIS [facility] Department of Radiology [address] [place] [id number] Patient Name: DELICIA HSU : 1935 [...] arthritis. Electronically signed by:Manjit Whatley. Transcribed by: [email or web address], User Resident: Electronically Signed by: MANJIT WHATLEY @ 01/10/2018 04:38 PM Normal [facility] Comment on above: Order Comment: , Vie ws (X-RAY, HIP): Radiologic Protocol , Views (X-RAY, HIP): Radiologic Protocol , , , Ordering Provider - MIRTHA VELÁSQUEZ PA-C , HIP LEFT 1 OR 2 VWS WITH PEL VISon 11-01-2017 HIP LEFT 1 OR 2 VWS WITH PELVIS [facility] Department of Radiology [address] [place] [phone] Patient Name: DELICIA HSU : 1935 [...] , , , Ordering Rebeka MORENO-C , PROTOCOL: AP(PA) and Lateral views were obtained. COMPARISON: September 21, 2017. FINDINGS: Neck fracture of proximal left femur internally fixated with multiple screws. No interval change in appearance since the prior study. Intact bony ring of pelvis on AP view. IMPRESSION: ORIF of left femoral neck fracture with limited healing, similar to prior study. Electronically signed by:Gerson Rodriguez. Transcribed by: [email or web address], User Resident: Electronically Signed by: GERSON RODRIGUEZ @ 11/01/2017 03:25 PM Normal [facility] Comment on above: Order Comment: , Carmella ws (X-RAY, HIP): Radiologic Protocol , Views (X-RAY, HIP): Radiologic Protocol , , , Ordering Rebeka VELÁSQUEZ PA-C , HIP LEFT 1 OR 2 VWS WITH PEL VISon 09-21-2017 HIP LEFT 1 OR 2 VWS WITH PELVIS [facility] Department of Radiology [address] [place] [id number] Patient Name: DELICIA HSU : 1935 Sex: F Age: Race: White Pt. Location: 84 Patient Status: Ordered Date: 09/21/2017 2:00:00 PM Completed Date: 09/21/2017 01:58 PM Requesting Provider: MIRTHA VELÁSQUEZ Attending Provider: Report Copy To: Signs & Symptoms: S72.045D Nondisp fx of base of nk of l femr, 7thD I10 History: [place] Comments: , , , Ordering Rebeka VELÁSQUEZ [...] fracture Electronically signed by:Coy Jerome. Transcribed by: [email or web address], User Resident: Electronically Signed by: COY JEROME @ 09/21/2017 03:27 PM [place] [facility] Comment on above: Order Comment: , , = ========= , Ordering Rebeka VELÁSQUEZ PA-C , Vital Signs Date Time Vital Sign Value Performing Clinician Facility 02-25-2023 10:15-0500 Body height 175.26 cm MD Jacinto Max Work Phone: [facility] 02-25-2023 10:15-0500 Body weight 59.1 kg MD Jacinto Max Work Phone: [facility] 02-25-2023 10:02-0500 Diastolic blood pressure 74 mm[Hg] MD Jacinto Max Work Phone: [facility] 02-25-2023 10:02-0500 Heart rate 67 /min MD Jacinto Max Work Phone: [facility] 02-25-2023 10:02-0500 Systolic blood pressure 157 mm[Hg] MD Jacinto Max Work Phone: [facility] 02-18-2023 14:00-0500 Body height 167.64 cm Jacinto Max Other [employer] Other 02-18-2023 14:00-0500 Body mass index (BMI) [Ratio] 20.66 kg/m2 Jacinto Max Other [employer] Other 02-18-2023 14:00-0500 Body temperature 97.2 [degF] Jacinto Max Other [employer] Other 02-18-2023 14:00-0500 Body weight 58.06 kg Jacinto Max Other [employer] Other 02-18-2023 14:00-0500 Diastolic blood pressure 66 mm[Hg] Jacinto Max Other [employer] Other 02-18-2023 14:00-0500 Systolic blood pressure 150 mm[Hg] Jacinto Max Other [employer] Other 02-16-2023 13:30-0500 Body height 167.64 cm Gypsy Mcmahon Other [employer] Other 02-16-2023 13:30-0500 Body mass index (BMI) [Ratio] 20.66 kg/m2 Gypsy Mcmahon Other [employer] Other 02-16-2023 13:30-0500 Body weight 58.06 kg Gypsy Mcmahon Other [employer] Other 02-16-2023 13:30-0500 Diastolic blood pressure 68 mm[Hg] Gypsy Mcmahon Other [employer] Other 02-16-2023 13:30-0500 SaO2% (BldA) [Mass fraction] 96 % Gypsy Mcmahon Other [employer] Other 02-16-2023 13:30-0500 Systolic blood pressure 140 mm[Hg] Gypsy Mcmahon Other [employer] Other 01-29-2023 11:26-0500 Heart rate 75 /min MALATHI DEB [facility] 01-29-2023 11:26-0500 SaO2% (BldA) [Mass fraction] 95 % MALATHI DEB [facility] 01-29-2023 11:26-0500 Respiratory rate 16 /min MALATHI DEB [facility] 01-29-2023 11:25-0500 Diastolic blood pressure 83 mm[Hg] MALATHI DEB [facility] 01-29-2023 11:25-0500 Mean blood pressure 108 mm[Hg] MALATHI DEB [facility] 01-29-2023 11:25-0500 Systolic blood pressure 158 mm[Hg] MALATHI DEB [facility] 01-29-2023 11:25-0500 Body temperature 98.06 [degF] MALATHI DEB [facility] 01-29-2023 10:54-0500 Heart rate 74 /min MALATHI DEB [facility] 01-29-2023 10:54-0500 SaO2% (BldA) [Mass fraction] 97 % MALATHI DEB [facility] 01-29-2023 10:54-0500 Respiratory rate 16 /min MALATHI DEB [facility] 01-29-2023 10:53-0500 Body temperature 97.52 [degF] MALATHI DEB [facility] 01-29-2023 10:53-0500 Diastolic blood pressure 84 mm[Hg] MALATHI DEB [facility] 01-29-2023 10:53-0500 Mean blood pressure 104 mm[Hg] MALATHI DEB [facility] 01-29-2023 10:53-0500 Systolic blood pressure 146 mm[Hg] MALATHI DEB [facility] 01-12-2023 13:30-0500 Body height 167.64 cm Hunter Brown Other [employer] Other 01-12-2023 13:30-0500 Body mass index (BMI) [Ratio] 22 kg/m2 Hunter Brown Other [employer] Other 01-12-2023 13:30-0500 Body weight 61.83 kg Hunter Brown Other [employer] Other 01-12-2023 13:30-0500 Diastolic blood pressure 60 mm[Hg] Hunter Brown Other [employer] Other 01-12-2023 13:30-0500 Systolic blood pressure 137 mm[Hg] Hunter Brown Other [employer] Other 01-05-2023 11:30-0500 Body height 167.64 cm Gypsy Mcmahon Other [employer] Other 01-05-2023 11:30-0500 Body mass index (BMI) [Ratio] 21.63 kg/m2 Gypsy Mcmahon Other [employer] Other 01-05-2023 11:30-0500 Body weight 60.78 kg Gypsy Mcmahon Other [employer] Other 01-05-2023 11:30-0500 Diastolic blood pressure 72 mm[Hg] Gypsy Mcmahon Other [employer] Other 01-05-2023 11:30-0500 Systolic blood pressure 162 mm[Hg] Gypsy Mcmahon Other [employer] Other 12-28-2022 13:30-0500 Body height 167.64 cm Malathi Velázquez Other [employer] Other 12-28-2022 13:30-0500 Body mass index (BMI) [Ratio] 19.98 kg/m2 Malathi Velázquez Other [employer] Other 12-28-2022 13:30-0500 Body weight 56.16 kg Malathi Solanoacher Other [employer] Other 12-28-2022 13:30-0500 Diastolic blood pressure 78 mm[Hg] Malathi Melania Other [employer] Other 12-28-2022 13:30-0500 Systolic blood pressure 146 mm[Hg] Malathi Melania Other [employer] Other 12-15-2022 11:15-0500 Body height 167.64 cm Gypsy Mcmahon Other [employer] Other 12-15-2022 11:15-0500 Body mass index (BMI) [Ratio] 21.53 kg/m2 Gypsy Mcmahon Other [employer] Other 12-15-2022 11:15-0500 Body weight 60.51 kg Gypsy Mcmahon Other [employer] Other 12-15-2022 11:15-0500 Diastolic blood pressure 73 mm[Hg] Gypsy Mcmahon Other [employer] Other 12-15-2022 11:15-0500 Systolic blood pressure 178 mm[Hg] Gypsy Mcmahon Other [employer] Other 09-22-2022 14:14-0400 Blood Pressure Location AMLATHI VIEIRA [facility] 09-22-2022 14:14-0400 Diastolic blood pressure 90 mm[Hg] MALATHI GUERRERORY [facility] 09-22-2022 14:14-0400 Heart rate 78 /min MALATHI VIEIRA [facility] 09-22-2022 14:14-0400 Systolic blood pressure 142 mm[Hg] MALATHI VIEIRA [facility] 09-01-2022 14:15-0400 Body height 167.64 cm Gypsy Mcmahon Other [employer] Other 09-01-2022 14:15-0400 Body mass index (BMI) [Ratio] 21.14 kg/m2 Gypsy Mcmahon Other [employer] Other 09-01-2022 14:15-0400 Body weight 59.42 kg Gypsy Mcmahon Other [employer] Other 09-01-2022 14:15-0400 Diastolic blood pressure 56 mm[Hg] Gypsy Mcmahon Other [employer] Other 09-01-2022 14:15-0400 Systolic blood pressure 132 mm[Hg] Gypsy Mcmahon Other [employer] Other 06-09-2022 13:42-0400 Diastolic blood pressure 71 mm[Hg] Marvin KWON [facility] 06-09-2022 13:42-0400 Heart rate 59 /min Marvin KWON [facility] 06-09-2022 13:42-0400 Systolic blood pressure 183 mm[Hg] Marvin KWON [facility] 04-24-2022 11:30-0400 Body height 167.64 cm Hunter Brown Other [employer] Other 04-24-2022 11:30-0400 Body mass index (BMI) [Ratio] 22.11 kg/m2 Hunter Brown Other [employer] Other 04-24-2022 11:30-0400 Body weight 62.14 kg Hunter Brown Other [employer] Other 04-24-2022 11:30-0400 Diastolic blood pressure 70 mm[Hg] Hunter Brown Other [employer] Other 04-24-2022 11:30-0400 Systolic blood pressure 159 mm[Hg] Hunter Brown Other [employer] Other 04-07-2022 14:15-0500 Body height 167.64 cm Gypsy Mcmahon Other [employer] Other 04-07-2022 14:15-0500 Body mass index (BMI) [Ratio] 21.79 kg/m2 Gypsy Mcmahon Other [employer] Other 04-07-2022 14:15-0500 Body weight 61.24 kg Gypsy Mcmahon Other [employer] Other 04-07-2022 14:15-0500 Diastolic blood pressure 62 mm[Hg] Gypsy Mcmahon Other [employer] Other 04-07-2022 14:15-0500 Systolic blood pressure 130 mm[Hg] Gypsy Mcmahon Other [employer] Other 03-11-2022 13:35-0500 Body temperature 97.5 [degF] MD Gypsy Mcmahon Work Phone: [facility] 03-11-2022 13:35-0500 Diastolic blood pressure 61 mm[Hg] MD Gypsy Mcmahon Work Phone: [facility] 03-11-2022 13:35-0500 Heart rate 60 /min MD Gypsy Mcmahon Work Phone: [facility] 03-11-2022 13:35-0500 Respiratory rate 18 /min MD Gypsy Mcmahon Work Phone: [facility] 03-11-2022 13:35-0500 SaO2% (BldA) [Mass fraction] 96 % MD Gypsy Mcmahon Work Phone: [facility] 03-11-2022 13:35-0500 Systolic blood pressure 135 mm[Hg] MD Gypsy Mcmahon Work Phone: [facility] 02-16-2022 10:45-0500 Body height 167.64 cm Gypsy Mcmahon Other [employer] [facility] [employer] Other 02-16-2022 10:45-0500 Body mass index (BMI) [Ratio] 21.46 kg/m2 Gypsy Mcmahon Other [employer] [facility] [employer] Other 02-16-2022 10:45-0500 Body weight 60.33 kg Gypsy Mcmahon Other [employer] Other 02-16-2022 10:45-0500 Diastolic blood pressure 70 mm[Hg] Gypsy Mcmahon Other [employer] Other 02-16-2022 10:45-0500 Systolic blood pressure 120 mm[Hg] Gypsy Mcmahon Other [employer] Other 02-11-2022 12:00-0500 Body height 172.72 cm Hunter Brown Other [employer] Other 02-11-2022 12:00-0500 Body mass index (BMI) [Ratio] 20.83 kg/m2 Hunter Brown Other [employer] Other 02-11-2022 12:00-0500 Body weight 62.14 kg Hunter Brown Other [employer] Other 02-11-2022 12:00-0500 Diastolic blood pressure 68 mm[Hg] Hunter Brown Other [employer] Other 02-11-2022 12:00-0500 Systolic blood pressure 144 mm[Hg] Hunter Brown Other [employer] Other 01-05-2022 10:30-0500 Body height 172.72 cm Hunter Brown Other [employer] Other 01-05-2022 10:30-0500 Body mass index (BMI) [Ratio] 22.04 kg/m2 Hunter Brown Other [employer] Other 01-05-2022 10:30-0500 Body weight 65.77 kg Hunter Brown Other [employer] Other 01-05-2022 10:30-0500 Diastolic blood pressure 78 mm[Hg] Hunter Brown Other [employer] Other 01-05-2022 10:30-0500 Systolic blood pressure 166 mm[Hg] Hunter Brown Other [employer] Other 03-27-2021 12:00-0500 Body height 172.72 cm Giana Griffiths Other [employer] Other 03-27-2021 12:00-0500 Body mass index (BMI) [Ratio] 22.96 kg/m2 Giana Griffiths Other [employer] Other 03-27-2021 12:00-0500 Body weight 68.49 kg Giana Griffiths Other [employer] Other 01-27-2021 10:45-0500 Body height 172.72 cm Giana Griffiths Other [employer] Other 01-27-2021 10:45-0500 Body mass index (BMI) [Ratio] 24.48 kg/m2 Giana Griffiths Other [employer] Other 01-27-2021 10:45-0500 Body weight 73.03 kg Giana Griffiths Other [employer] Other Encounters Encounter Date Encounter Type Care Provider Facility Start: 06-15-2023 ambulatory MALATHI Gonzalez ty:[facility] Start: 03-12-2023 End: 03-12-2023 ambulatory Jacinto Max Other [employer] Other Start: 03-12-2023 Telephone encounter Jacinto [facility] Start: 03-11-2023 End: 03-11-2023 ambulatory Jacinto Max Other [employer] Other Start: 03-11-2023 Telephone encounter Jacinto [facility] Start: 03-02-2023 End: 03-02-2023 ambulatory Gypsy Mcmahon Other [employer] Other Start: 03-02-2023 Telephone encounter Gypsy Mcmahon [facility] Start: 02-25-2023 End: 02-25-2023 ambulatory Jacinto Max Facility:[facility] Start: 02-25-2023 End: 02-25-2023 ambulatory MD Jacinto Max Work Phone: [facility] Work Phone: Start: 02-25-2023 End: 02-25-2023 Discharged Recurring MD Jacinto Max Work Phone: [facility] - [facility] Work Phone: Start: 02-18-2023 End: 02-18-2023 ambulatory Jacinto Max Other [employer] Other Start: 02-18-2023 Office outpatient ne w 45 minutes Jacinto Max [facility] Infect[facility] Start: 02-18-2023 End: 02-18-2023 Patient encounter procedure MD Jacinto Max Work Phone: [facility] Infectious Disease Work Phone: Start: 02-16-2023 End: 02-16-2023 ambulatory Gypsy Mcmahon Other [employer] Other Start: 02-16-2023 Office outpatient visit 15 minutes Gypsy Mcmahon [facility] Start: 02-16-2023 End: 02-16-2023 Patient encounter procedure MD Jacinto Max Work Phone: [facility] Work Phone: Start: 01-29-2023 ambulatory MALATHI VIEIRA Facili ty:[facility] Start: 01-29-2023 End: 01-29-2023 Patient encounter procedure MALATHI GUERRERORY [facility] Start: 01-26-2023 End: 01-26-2023 Patient encounter procedure MALATHI Olvera DEB [facility] Start: 01-26-2023 End: 01-27-2023 ambulatory MALATHI GUERRERORY [facility] [employer] [employer] Other Start: 01-26-2023 Telephone encounter Hunter [facility] Start: 01-20-2023 End: 01-20-2023 ambulatory Hunter Brown Other [employer] Other Start: 01-20-2023 Telephone encounter Hunter Palomo caitlyn [facility] Gastroenter[facility] Start: 01-12-2023 End: 01-12-2023 ambulatory Hunter Brown Other [employer] Other Start: 01-12-2023 Office outpatient visit 25 minutes Hunter Brown [facility] Gastroenter[facility] Start: 01-12-2023 End: 01-12-2023 Patient encounter procedure MD Jacinto Max [facility] G[facility] Work Phone: Start: 01-11-2023 End: 01-11-2023 ambulatory Gypsy Mcmahon Other [employer] Other Start: 01-11-2023 Telephone encounter Gypsy Mcmahon [facility] Start: 01-05-2023 End: 01-05-2023 ambulatory Gypsy Mcmahon Other [employer] Other Start: 01-05-2023 Telephone encounter Gypsy Mcmahon [facility] Start: 01-05-2023 Transitional care manage srvc 14 day discharge Gypsy Mcmahon [facility] Start: 01-05-2023 End: 01-05-2023 Patient encounter procedure MD Jacinto Max Work Phone: [facility] Phys[facility] Work Phone: Start: 12-30-2022 End: 12-30-2022 ambulatory Malathi Velázquez Other [employer] Other Start: 12-30-2022 Telephone encounter Malathi Boss [facility] Start: 12-28-2022 End: 12-28-2022 ambulatory Malathi Velázquez Other [employer] Other Start: 12-28-2022 Office outpatient visit 15 minutes Malathi Velázquez [facility] Start: 12-28-2022 End: 12-28-2022 Patient encounter procedure MD Jacinto Max Work Phone: [facility] Work Phone: Start: 12-15-2022 End: 12-15-2022 ambulatory Gypsy Mcmahon Other [employer] Other Start: 12-15-2022 Office outpatient visit 15 minutes Gypsy Mcmahon [facility] Start: 12-15-2022 Telephone encounter Gypsy Mcmahon [facility] Start: 12-15-2022 End: 12-15-2022 Patient encounter procedure MD Jacinto Max Work Phone: [facility] Work Phone: Start: 11-11-2022 End: 11-11-2022 ambulatory AB [facility] Start: 10-29-2022 End: 10-29-2022 ambulatory Hunter Brown Facility:[facility] Start: 09-22-2022 End: 09-23-2022 ambulatory MALATHI VIEIRA Facility:[facility] Start: 09-22-2022 End: 09-22-2022 Patient encounter procedure MALATHI VIEIRA [facility] Start: 09-10-2022 End: 09-10-2022 ambulatory Jose G Ellington Other [employer] Other Start: 09-10-2022 Nursing evaluation o f patient and report Jose G Ellington [facility] Start: 09-08-2022 End: 09-08-2022 ambulatory Hunter Brown Other [employer] Other Start: 09-08-2022 Telephone encounter Hunter [facility] Start: 09-01-2022 End: 09-01-2022 ambulatory Gypsy Mcmahon Other [employer] Other Start: 09-01-2022 Office outpatient visit 15 minutes Gypsy Mcmahon [facility] Start: 08-27-2022 End: 08-27-2022 ambulatory Gypsy Mcmahon Other [employer] Other Start: 08-27-2022 Telephone encounter Gypsy Mcmahon [facility] Start: 06-30-2022 End: 06-30-2022 ambulatory EHAB [facility] Start: 06-09-2022 End: 06-10-2022 ambulatory Marvin KWON Facility:[facility] Start: 06-09-2022 End: 06-09-2022 Patient encounter procedure Marvin KWON [facility] Start: 05-27-2022 End: 05-28-2022 ambulatory MALATHI VIEIRA Facility: Start: 05-19-2022 End: 05-20-2022 ambulatory GYPSY MCMAHON Facility:[facility] [place] Start: 05-19-2022 End: 05-19-2022 Patient encounter procedure MALATHI VIEIRA [facility] Start: 05-14-2022 End: 05-14-2022 ambulatory Gypsy Mcmahon Other [employer] Other Start: 05-14-2022 Telephone encounter Gypsy Mcmahon [facility] Start: 05-11-2022 End: 05-12-[address] GYPSY MCMAHON Facility:[facility] Start: 05-01-2022 (Televisit) Televisit Gypsy Evangelista [facility] Start: 05-01-2022 End: 05-01-2022 ambulatory Gypsy Mcmahon Other [employer] Other Start: 05-01-2022 Telephone encounter Gypsy Mcmahon [facility] Start: 04-28-2022 End: 04-29-[address] GYPSY MCMAHON Facility:[facility] Start: 04-24-2022 End: 04-24-2022 ambulatory Hunter Brown Other [employer] Other Start: 04-24-2022 Office outpatient visit 15 minutes Hunter Brown [facility] G[facility]enter[facility] Start: 04-20-2022 ambulatory Marvin KWON Facility : [facility] Start: 04-16-2022 End: 04-16-2022 ambulatory Gypsy Mcmahon Other [employer] Other Start: 04-16-2022 Telephone encounter Gypsy Mcmahon [facility] Start: 04-14-2022 End: 04-14-[address] GYPSY MCMAHON Facility:[facility] Start: 04-07-2022 End: 04-07-2022 ambulatory Gypsy Mcmahon Other [employer] Other Start: 04-07-2022 Office outpatient visit 15 minutes Gypsy Mcmahon [facility] Start: 04-03-2022 End: 04-03-2022 ambulatory Gypsy Mcmahon Other [employer] Other Start: 04-03-2022 Telephone encounter Gypsy Mcmahon [facility] Start: 03-30-2022 End: 03-30-2022 ambulatory Gypsy Mcmahon Facility:[facility] Start: 03-30-2022 End: 03-30-2022 Departed Referred MD Gypsy Mcmahon Work Phone: [facility] [place] Work Phone: Start: 03-30-2022 End: 03-30-2022 ambulatory MD Gypsy Mcmahon Work Phone: [facility] Work Phone: Start: 03-30-2022 Nursing evaluation o f patient and report Gypsy Mcmahon [facility] Start: 03-20-2022 End: 02-11-[address] GYPSY MCMAHON Facility:[facility] Start: 03-19-2022 End: 03-19-2022 ambulatory Hunter Brown Other [employer] Other Start: 03-19-2022 Telephone encounter Hunter brady [facility] Start: 03-11-2022 Registered Recurring MD Gypsy Mcmahon Work Phone: [facility] Work Phone: Start: 02-23-2022 End: 02-24-[address] GYPSY MCMAHON Facility:[facility] Start: 02-19-2022 End: 02-19-2022 ambulatory Gypsy Mcmahon Other [employer] Other Start: 02-19-2022 Telephone encounter Gypsy Mcmahon [facility] Start: 02-17-2022 End: 02-18-[address] GYPSY MCMAHON Facility:[facility] Start: 02-16-2022 End: 02-16-2022 ambulatory Gypsy Mcmahon Other [employer] Other Start: 02-16-2022 Office outpatient visit 15 minutes Gypsy Mcmahon [facility] Start: 02-16-2022 End: 02-16-2022 Departed Referred MD Gypsy Mcmahon Work Phone: [facility] [place] Work Phone: Start: 02-11-2022 End: 02-11-2022 ambulatory Hunter Brown Other [employer] Other Start: 02-11-2022 Office outpatient visit 15 minutes Hunter Brown [facility] Start: 02-11-2022 Telephone encounter Hunter brady [facility] Start: 01-26-2022 End: 01-27-[address] GYPSY MCMAHON Facility:[facility] Start: 01-15-2022 End: 01-16-[address] GYPSY MCMAHON Facility:[facility] Start: 01-06-2022 End: 01-06-2022 ambulatory Hunter Brown Other [employer] Other Start: 01-06-2022 Telephone encounter Hunter brady [facility] Start: 01-05-2022 End: 01-06-[address] [facility] [employer] Other Start: 01-05-2022 Office outpatient visit 25 minutes Hunter Brown [facility] Start: 12-27-2021 End: 12-27-[address] REY MONTGOMERY Facility:[facility] Start: 12-18-2021 End: 12-19-2021 ambulatory CLAU NASCIMENTO Facility:[facility] Start: 12-08-2021 End: 12-09-[address] GYPSY MCMAHON Facility:[facility] Start: 11-18-2021 End: 11-18-2021 ambulatory Hunter Brown Other [employer] Other Start: 11-18-2021 Telephone encounter Hunter brady [...] 08-18-2021 End: 08-18-2021 ambulatory Giana Griffiths Other [employer] Other Start: 08-18-2021 Telephone encounter Giana Griffiths [facility] Start: 08-12-2021 End: 08-12-[address] GYPSY MCMAHON Facility: Start: 04-22-2021 End: 04-22-2021 ambulatory Giana Griffiths Other [employer] Other Start: 04-22-2021 Telephone encounter Giana Griffiths [facility] Start: 03-27-2021 End: 03-27-2021 ambulatory Giana Griffiths Other [employer] Other Start: 03-27-2021 Office outpatient visit 25 minutes Giana Griffiths [facility] Start: 01-27-2021 End: 01-27-2021 ambulatory Giana Griffiths Other [employer] Other Start: 01-27-2021 Office outpatient visit 25 minutes Giana Griffiths [facility] Start: 01-27-2021 Telephone encounter Giana Griffiths [facility] Procedures Date Procedure Procedure Detail Performing Clinician Start: 06-09-2022 Cystoscopy Marvin BOB Start: 02-16-2022 Piperacillin/tazobactam Gypsy Mcmahon Other Start: 02-16-2022 Urine culture MD Gypsy Mcmahon Work Phone: Start: 03-24-2012 Hernia of abdominal cavity (disorder) MALATHI VIEIRA Start: 10-07-2009 Cystoscopy MALATHI SPARROW Start: 09-12-2009 Introduction of tens ion free vaginal tape MALATHI DEB Start: 07-25-2009 Urodynamic studies CAMMY SEO DEB [...] 03-30-2022 Bacteria identified in Urine by Culture [facility] Immunizations Immunization Date Immunization Notes Care Provider Bob henry 02-16-2022 Shingrix 50 MCG/0.5M L; 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: [Shingrix 50 MCG/0.5ML] Hunter Brown Other [employer] Other 01-15-2022 influenza virus vaccine, unspecified formulation MALATHI VIEIRA [facility] 01-15-2022 SARS-CoV-2 (COVID-19 ) [id number] MALATHI VIEIRA [facility] 01-23-2021 SARS-CoV-2 (COVID-19 ) mRNA BNT-162b2 vax MALATHI VIEIRA [facility] 01-06-2021 influenza virus vaccine, unspecified formulation MALATHI VIEIRA [facility] 03-27-2020 SARS-CoV-2 (COVID-19 ) mRNA BNT-162b2 vax MALATHI VIEIRA [facility] 03-04-2020 SARS-CoV-2 (COVID-19 ) mRNA BNT-162b2 vax MALATHI VIEIRA [facility] 12-06-2019 influenza virus vaccine, unspecified formulation MALATHI DEB [facility] 12-14-2018 influenza virus vaccine, unspecified formulation MALATHI DEB [facility] 02-02-2018 influenza virus vaccine, unspecified formulation MALATHI DEB [facility] 11-08-2017 pneumococcal polysaccharide vaccine, 23 valent MALATHI DEB [facility] 11-02-2017 influenza virus vaccine, unspecified formulation MALATHI DEB [facility] 12-09-2016 influenza virus vaccine, unspecified formulation MALATHI DEB [facility] 12-02-2016 influenza virus vaccine, unspecified formulation MALATHI DEB [facility] 12-17-2015 influenza virus vaccine, unspecified formulation MALATHI DEB [facility] 10-10-2015 influenza virus vaccine, unspecified formulation MALATHI DEB [facility] 11-19-2014 influenza virus vaccine, unspecified formulation MALATHI DEB [facility] 11-09-2014 pneumococcal polysaccharide vaccine, 23 valent MALATHI DEB [facility] NEGATED: Highlighted row has not occurred!01-26-2023 influenza virus vaccine, unspecified formulation MALATHI DEB [facility] Payers Date Payer Category Payer Self-pay [id number] 1958 [id number] 1958 Medicare [id number] 2.1 [id number] 1936 Unknown [id number] 2.16.84 [id number] 1936 Unknown [id number] 2.16.84 [id number] 1936 Unknown [id number] 2.16.84 [id number] 1936 Unknown [id number] 2.16.84 [id number] 1936 Unknown [id number] 2.16.84 [id number] 1936 Unknown [id number] 2.16.84 [id number] 1936 Unknown [id number] 2.16.84 [id number] 1936 Unknown [id number] 2.16.84 [id number] 1936 Unknown [id number] 2.16.84 [id number] 1936 Unknown [id number] 2.16.84 [id number] 1936 Unknown [id number] 2.16.84 [id number] 1936 Unknown [id number] 2.16.84 [id number] 1936 Unknown [id number] 2.16.84 0.1.616163.3.579.2.593 1935 Unknown [id number] 2.16.84 0.1.026446.3.579.2.593 1935 Unknown [id number] 2.16.84 0.1.959907.3.579.2.593 1936 Unknown [id number] 2.16.84 0.1.772538.3.579.2.593 1936 Unknown [id number] 2.16.84 0.1.590366.3.579.2.593 1936 Unknown [id number] 2.16.84 0.1.859425.3.579.2.593 1936 Unknown [id number] 2.16.84 0.1.712249.3.579.2.593 1936 Unknown [id number] 2.16.84 0.1.320314.3.579.2.593 1936 Unknown [id number] 2.16.84 0.1.625265.3.579.2.593 1936 Unknown [id number] 2.16.8 40.1.870874.3.579.2.727 1936 Unknown 2020 2.16.8 40.1.848174.3.579.2.727 1936 Unknown [id number] 2.16.8 40.1.962930.3.579.2.727 1936 Unknown [id number] 2.16.8 40.1.610192.3.579.2.727 1936 Unknown [id number] 2.16.8 40.1.524390.3.579.2.727 1936 Unknown [id number] 2.16.8 40.1.508329.3.579.2.727 1936 Unknown [id number] 2.16.8 40.1.200376.3.579.2.727 Unknown [id number] 2.16.8 40.1.185929.3.579.2.531 Unknown [id number] 2.16.8 40.1.127730.3.579.2.531 Unknown [id number] 2.16.8 40.1.526352.3.579.2.531 Social History Date Type Detail Facility Unknown if ever smoked [facility] [employer] Other Sex Assigned At [facility] Start: 1935 Sex Assigned At Female F [facility] Start: 05-19-2022 End: 06-09-2022 Tobacco smoking status Ex-smoker (finding) [facility] Start: 09-22-2022 Tobacco smoking status Never [facility] Functional Status Date Assessment Result Facility 01-26-2023 Functional Status N/A [facility] 09-22-2022 Functional Status N/A [facility] 06-09-2022 Functional Status N/A 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 Other 02-01-2024 Evaluation note* Encounter Date Diagnosis Assessment Notes Treatment Notes Treatment Clinical Notes Mar, Diarrhea (ICD-10 - R19.7) [facility] [facility] Other 01-11-2024 Evaluation note* Encounter Date Diagnosis Assessment Notes Treatment Notes Treatment Clinical Notes Feb, Recurrent UTI (ICD-1 0 - N39.0) Patient has had various different urine cultures that have been positive over the last year or 2. It does not appear that one organism seems to be repetitive or recurrent. Treated effectively each time and most recently got intramuscular gentamicin for the infection she had over the holiday. Symptom denney her daughter states she seems to be doing okay. Patient denies dysuria or hematuria but we did discuss that 24 hours of wearing pantiliners probably not patient's best interest and that she should try to go without them in the evening. Patient also attempts to empty her bladder and has a better chance of emptying her bladder if she stands she states. Nonetheless all of these above risk factors are reasons for infections to occur. Then there is the issue of her microscopic colitis and the medication that she has been on. This alone can increase risk of infections. Preventative measures were discussed. Vitamin C yebi-odf-bjmwzar recommended as well as topical Thera workx product. This is to be done twice a day as a preventative White. 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 difficile. Given patient's immunosuppression and age we will attempt to get patient an infusion of Zinplava to hopefully cut back her recurrent risk of C. difficile Feb, At risk for infectio n due to immunosuppression (ICD-10 - Z91.89) [employer] Other 01-09-2024 Evaluation note* Encounter Date Diagnosis Assessment Notes Treatment Notes Treatment Clinical Notes Feb, C. difficile colitis (ICD-10 - [...] pain. Feb, Pain, unspecified (ICD-10 - R52) [employer] Other 12-19-2023 Hospital Discharge instructions Patient Education 01/26/2023 16:05:17 Urinary Tract Infection, Adult, Mfnx-ca-Bjqj Urinary Tract Infection, Adult A urinary tract [...] Follow these instructions at home: Medicines Take yrbp-vli-bfcdrjf and prescription medicines only as told by [...] provider. Document Revised: 09/06/2020 Document Reviewed: 09/06/2020 [employer] Patient Education 2022 [employer]. Follow Up Care 06/09/2022 14:50:19 With:DEB ZAZUETA, MALATHI Olvera, URL Address: [address] [place] [address] [facility] [place] [address] [phone] When: Unknown Comments:f/u in [place] [facility] 12-13-2023 Evaluation note* Encounter Date Diagnosis Assessment Notes Treatment Notes Treatment Clinical Notes Jan, Diarrhea (ICD-10 - R19.7) [employer] Other 12-05-2023 Evaluation note* Encounter Date Diagnosis [...] a day, we will re-test for C-diff [employer] Other 11-28-2023 Evaluation note* Encounter Date Diagnosis Assessment Notes Treatment Notes Treatment Clinical Notes Dec, Clostridium difficile colitis (ICD-10 - A04.72) Finish meds as prescribed. (vern, Rosalio) Followup w Dr. Brown as scheduled. Understands the c diff could recur. Followup as needed Discussed good nutrition and healthy diet. [employer] Other 11-20-2023 Evaluation note* Encounter Date Diagnosis Assessment Notes Treatment Notes Treatment Clinical Notes Dec, Diarrhea, unspecified type (ICD-10 - R19.7) Pt appears to be having secondary from viral infection. There is no abdominal pain on exam and pt is afebrile which is reassuring. C. diff infection is a possibility as she was recently treated [facility] antibitics for a UTI, will check [...] Pt understands and agrees with the plan. [employer] Other 11-07-2023 Evaluation note* Encounter Date Diagnosis Assessment Notes Treatment Notes Treatment Clinical Notes Dec, Frequent UTI (ICD-10 - N39.0) [employer] Other 11-07-2023 Evaluation note* Encounter Date Diagnosis [...] w Dr. Licea today. Consider PT at [facility] or [facility] [employer] Other 10-04-2023 [facility] Cardiology Clinic Note Chief Complaint: [...] veins Hypertension - Uncon (more content not included)...[facility]08-15-2023 Hospital Discharge instructions Patient Education 09/22/2022 15:32:53 Urinary Tract Infection, Adult, Noqx-uc-Fkgh Urinary Tract Infection, Adult A urinary tract [...] Follow these instructions at home: Medicines Take hbln-ykm-bclivrh and prescription medicines only as told by [...] provider. Document Revised: 09/06/2020 Document Reviewed: 09/06/2020 [employer] Patient Education 2022 [employer]. Follow Up Care 09/22/2022 10:38:22 With:MALATHI VIEIRA PA-C, URL Address: [address] [place] [address] When: Unknown [facility] 08-03-2023 Evaluation note* Encounter Date Diagnosis Assessment Notes Treatment Notes Treatment Clinical Notes Sep, Dysuria (ICD-10 - R30.0) [employer] Other 08-01-2023 Evaluation note* Encounter Date Diagnosis Assessment Notes Treatment Notes Treatment Clinical Notes Sep, Microscopic colitis, unspecified microscopic colitis type (ICD-10 - K52.839) [employer] Other 07-25-2023 Evaluation note* Encounter Date Diagnosis Assessment Notes Treatment Notes Treatment Clinical Notes Aug, Frequent UTI (ICD-10 - N39.0) Continue estrogen cream. Review with Urology on her followup appt. Discussed causes of UTIs Aug, Lymphocytic colitis (ICD-10 - K52.832) Improved with GI at [facility]. 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 Barry. Reviewed medications and explained their purpose. [employer] Other 07-20-2023 Evaluation note* Encounter Date Diagnosis Assessment Notes Treatment Notes Treatment Clinical Notes Aug, Recurrent UTI (ICD-10 - N39.0) [employer] Other 05-23-2023 [facility] Cardiology Clinic Note Chief Complaint: New patient [...] asked her to discuss this with her director center. Depending on the risk-benefit ratio will consider starting 1 or the other. She is on Zocor which is not ideal. If her cholesterol is not controlled, would suggest switching her to 40 mg of Lipitor or 20 mg of Crestor. Follow-up in 6 months or sooner should problems arise or her stress test revealed ischemia Jake Barry MD, MPH, [facility], [facility], [facility] Interventional Cardiology Pager Email: [email or web address] Hospital Discharge instructions Patient Education 06/09/2022 14:15:56 Urinary Tract Infection, Adult, Rcsv-kh-Zwhe Urinary Tract Infection, Adult A urinary tract [...] Follow these instructions at home: Medicines Take ojce-hxy-svuhlfp and prescription medicines only as told by [...] provider. Document Revised: 09/06/2020 Document Reviewed: 09/06/2020 [employer] Patient Education 2022 [employer]. Follow Up Care 06/01/2022 10:03:13 With:CHER KRISHNAN, Marvin Camacho, URL Address: [facility] [address] [place] [address]- [id number] When:10/10/2022 [facility] [place] 04-11-2023 NoteChief Complaint Referral *Recurrent UTI [...] anesthesia. 2. Feeling o (more content not included)...[facility]:Result Comment: Electronically Signed By: MALATHI VIEIRA PA-C\.br\Date and Time Signed: 05/19/2313:49 EDT\.br\Electronically Co-Signed By: Ela Smith\.br\Date and Time Co-Signed: 05/19/22 14:40 [id number] Hospital Discharge instructions Patient Education 05/19/2022 14:16:45 [...] Treatment for this condition includes: Antibiotic medicine. Ibma-yfj-yqmcvth medicines to treat discomfort. Drinking enough water [...] Follow these instructions at home: Medicines Take iiva-lth-xlkfuhg and prescription medicines only as told by [...] 11/04/2005 Document Revised: 01/12/2019 Document Reviewed: 08/04/2018 [employer] Patient Education 2019 [employer]. Follow Up Care 04/20/2022 10:50:51 With:MALATHI VIEIRA PA-C, URL Address: [address] [place] [address] When: Unknown [facility] [place] 04-06-2023 Evaluation note* Encounter Date Diagnosis Assessment Notes Treatment Notes Treatment Clinical Notes May, Frequent UTI (ICD-10 - N39.0) [employer] Other 03-24-2023 Evaluation note* Encounter Date Diagnosis [...] back this morning. antibiotic at her pharmacy. [employer] Other 03-17-2023 Evaluation note* Encounter Date Diagnosis Assessment Notes Treatment Notes Treatment Clinical Notes Apr, Lymphocytic colitis (ICD-10 - K52.832) Continue Entyvio as directed Continue Lotronex 0.5 mg 1/2 tablet daily Rto 4 months [employer] Other 03-09-2023 Evaluation note* Encounter Date Diagnosis Assessment Notes Treatment Notes Treatment Clinical Notes Apr, Acute cystitis without hematuria (ICD-10 - N30.00) [employer] Other 02-28-2023 Evaluation note* Encounter Date Diagnosis Assessment Notes Treatment Notes Treatment Clinical Notes Mar, Recurrent UTI (ICD-10 - N39.0) Discussed options. Will try estrogen cream for vaginal health. Denies personal history of female cancers. Will also set up w Urology Mar, Colitis (ICD-10 - K52.9) Further treatment with Dr. Brown w appt on 04/24 [employer] Other 02-20-2023 Evaluation note* Encounter Date Diagnosis Assessment Notes Treatment Notes Treatment Clinical Notes Mar, Dysuria (ICD-10 - R30.0) [employer] Other 01-09-2023 Evaluation note* Encounter Date Diagnosis Assessment Notes Treatment Notes Treatment Clinical Notes Feb, Acute cystitis without hematuria (ICD-10 - N30.00) Sent to [facility] for urine culture - will treat based on results. Feb, Encounter for immunization (ICD-10 - Z23) Feb, Microscopic colitis, unspecified microscopic colitis type (ICD-10 - K52.839) Keep appt w Dr. Brown. Discussed boost or other supplement to gain weight Feb, Gastric ulcer (ICD-10 - K25.9) Encouraged her to continue pantoprazole [employer] Other 01-04-2023 Evaluation note* Encounter Date Diagnosis Assessment Notes Treatment Notes Treatment Clinical Notes Feb, Lymphocytic colitis (ICD-10 - K52.832) Start Entyvio infusions every 8 weeks Continue Budesonide, Alosetron, Imodium, and Pepto for now until starting Entyvio. Pt to keep record of bowel movements - how many and consistency Follow up in 2 months Feb, Fecal incontinence (ICD-10 - R15.9) [employer] Other 11-28-2022 Evaluation note* Encounter Date Diagnosis [...] Pantoprazole as prescribed Okay to stop Sucralfate [employer] Other 09-25-2022 NoteOPERATIVE NOTE OPERATION DATE: 11/04/2021 [...] was taken to PACU in good condition.[facility] 03-27-2021 Evaluation note* Encounter Date Diagnosis Assessment Notes Treatment Notes Treatment Clinical Notes Mar, Microscopic colitis, unspecified microscopic colitis type (ICD-10 - K52.839) INCREASE COLESTIPOL TO 4 TABS AT LUNCHTIME DAILY IF NOT IMPROVED ON HIGHER DOSE PT TO CALL ON 03/31 FOR ALTERNATIVE PLAN Mar, Irritable bowel syndrome with diarrhea (ICD-10 - K58.0) [employer] Other 12-20-2021 Evaluation note* Encounter Date Diagnosis Assessment Notes Treatment Notes Treatment Clinical Notes Jan, Microscopic colitis, unspecified microscopic colitis type (ICD-10 - K52.839) START COLESIPOL 2 PO DAILY CONTINUE BUDESONIDE WITHOUT CHANGE 3 PO Q AM AND MAYBE CONSIDERING STOP THIS IF COLESTIPOL IS WORKING ENOUGH TO CONTROL HER SYMPTOMS [employer] Other 12-20-2021 Evaluation note* Encounter Date Diagnosis Assessment Notes Treatment Notes Treatment Clinical Notes Jan, Microscopic colitis, unspecified microscopic colitis type (ICD-10 - K52.839) [facility] [employer] Other Evaluation + Plan note No data available for this section [facility] evaluation + Plan note Future Appointments Appointment Date:10/27/2022 01:00:00 PM Scheduled Provider:MALATHI VIEIRA PA-C Location:[facility] Appointment Type:URO Office Visit [facility] Evaluation + Plan note Future Appointments Appointment Date:12/29/2022 01:00:00 PM Scheduled Provider:MALATHI VIEIRA PA-C Location:[facility] Appointment Type:URO Office Visit [facility] evaluation + Plan note Future Appointments Appointment Date:06/15/2023 02:00:00 PM Scheduled Provider:MALATHI VIEIRA PA-C Location:[facility] Appointment Type:URO Office Visit [facility] evaluation + Plan note Future Appointments Appointment Date:01/30/2023 10:30:00 AM Scheduled Provider: Location:[facility] Appointment Type:ASU IV Antibiotic (FT) Appointment Date:01/31/2023 10:30:00 AM Scheduled Provider: Location:[facility] Appointment Type:ASU IV Antibiotic (FT) Appointment Date:02/01/2023 10:30:00 AM Scheduled Provider: Location:[facility] Appointment Type:ASU IV Antibiotic (FT) Appointment Date:02/02/2023 10:30:00 AM Scheduled Provider: [facility] App[facility] Type:ASU IV Antibiotic (FT) Appointment Date:02/03/2023 10:30:00 AM Scheduled Provider: Location:[facility] Appointment Type:ASU IV Antibiotic (FT) Appointment Date:02/04/2023 10:30:00 AM Scheduled Provider: [facility] App[facility] Type:ASU IV Antibiotic (FT) Appointment Date:06/15/2023 02:00:00 PM Scheduled Provider:MALATHI VIEIRA PA-C Location:[facility] Appointment Type:[facility] note[facility] InformationN[employer] Other Evaluation noteNo assessment information available [facility] Work Phone: [facility] general Narrative - Reported* Type Description Date Medical History HTN Medical History hyperlipidemia Medical History microscopic colitis Surgical History T&A Surgical History Quad by-pass Surgical History total hysterectomy Surgical History gall bladder Surgical History Cataracts Surgical History Right Knee Scope Surgical History Sphincterectomy Surgical History Left Rotator Scope Surgical History Hernia Repair 03/24/2012 Hospitalization History See Surgical Hx [employer] Other Histcio general Narrative - Reported* Type Description Date [...] Hospitalization History See Surgical Hx Hospitalization History [facility] 12/2022 [employer] Other [employer] general Narrative - Reported* Type Description Date [...] See Surgical Hx Hospitalization History [facility] 12/2022 [employer] Other [facility] general Narrative - Reported* Type Description Date [...] See Surgical Hx Hospitalization History [facility] 12/2022 [employer] Other History general Narrative - Reported* Type [...] Hospitalization History See Surgical Hx Hospitalization History [facility] 12/2022 [employer] Other Hospital Discharge instructions No data available for this section [facility] No data available for this section [facility] [employer] Summary Purpose Family History No Family History Records FoundNo Family History Records FoundNo Family History Records FoundNo Family History Records Found No data available for this section No data available for this section No Family History Records FoundNo Family History Records Found Advance Directives Advance Directive Response Recorded Date/ Time Advance Directives No November 22, 2017 9:57am Hospital Course Note [facility] Discharge Summary PERSON INFORMATION Name DELICIA HSU Age 83 Years 1935 Sex FEMALE Language Botswanan PCP Lisandro KRISHNAN, Gypsy Olvera Marital Status Med Service Med/Surg N [id number] Acct# Arrival 09/25/2019 06:52:00 Visit Reason SURGERY - LEFT TOTAL HIP [facility] Address: [address] [place] [address] Comment: PROVIDER INFORMATION VITALS INFORMATION Vital Sign [...] Legs A04.71 Reason for Referral Reason DUPLICATE [place] office - frequent UTIs. Diagnosis 1 Frequent UTI (N39.0) Referral Organization [facility] [employer] Referring Provider First Name Gypsy Referring Provider Last Name Lisandro Referring Provider [facility] [place] [facility] Referred Provider Beau Hernandez Referred Address [address],[place],[address] Referred Provider Specialty Urology Referral Priority Routine General Notes Tatyana Bojorquez 01:56:52 PM >received today Tatyana Bojorquez 05/14/2022 02:02:41 PM >attachments made, notes locked, referral faxed Tatyana Bojorquez 05/14/2022 03:25:50 PM >DUPLICATE REFERRAL Reason *FU 04/28 [place] office - recurrent UTIs. Diagnosis 1 Recurrent UTI (N39.0 ) Referral Organization [facility] [employer] Referring Provider First Name Gypsy Referring Provider Last Name Lisandro Referring Provider Specialty [facility] [place] [facility] Referred [facility] Referred Provider Gerson Juárez Referred Address [address],[place],[address] Referred Provider Specialty Urology Referral Priority Routine [...] and content) DATE CREATED AUTHOR 09/17/2018 [facility] DATE CREATED AUTHOR AUTHOR'S ORGANIZ ATION 10/30/2019 [facility] l DATE CREATED AUTHOR AUTHOR'S ORGANIZ ATION 05/31/2022 [facility] pital DATE CREATED AUTHOR AUTHOR'S ORGANIZ ATION 11/15/2022 [facility] DATE CREATED AUTHOR AUTHOR'S ORGANIZ ATION 02/17/2023 [facility] DATE CREATED AUTHOR AUTHOR'S ORGANIZ ATION 02/28/2023 [facility] REASON FOR VISIT (unrecogniz ed section and [...] on alosetron, Patient was recently inpatient at [facility] and was diagnosed with gastric ulcerPRESCRIPTIONPATIENT HERE FOR 1 MONTH FOLLOW UP LYMPHOCYTIC COLITIS.No InformationEntyvioCheck upREFILLUANo Informationurine cultureDISCUSSIONurine culturereferralPATIENT HERE FOR 2 MONTH FOLLOW UPupset stomach, vomiting and diarrheautiurine culturerefillmedication discussREFILLSUA-ConfusionRefillTBHNot Feeling WellUpdateTCMtbh follow uprecent admissionPatient here for 3 month follow upClinicalC.DiffLegsdizzyNo InformationNo InformationNo Information Care Teams (unrecognized sec tion and content) [...] Member Role Status Dates Malathi Velázquez APRN [employer] SCIENCE RESEARCH TECHNICIAN-C Attending Provider Act judah Start: December 28, [...] BE BASED ON THE PRIMARY CLINICAL RECORDS. [employer] provides no warranty or guarantee of the accuracy or completeness of information in this document.
== END 2023-04-07 20:33 | disposition home or self-care (01) ==
LOC: LAB 20:32
PROVIDERS: PCP Family Medicine; Visit Provider Internal Medicine Infectious Disease
DX: R19.7 Diarrhea, unspecified (principal); N39.0 Urinary tract infection, site not specified
CPT/HCPCS: 87493

== ENCOUNTER 2023-05-01 17:20 | Outpatient (REF) | payer MEDICARE, BC, SELFPAY ==
--- OUTSIDE RECORDS SUMMARY | 2023-05-01 18:28 | XMS_ITS | CCD ---
Author Organization [facility] Care Team Providers Care Natural Resources Faculty Member Name Role Phone Jian Giana Unavailable Hunter Brown Unavailable MD Gypsy Mcmahon Primary Care Provider [phone] MD Gypsy Mcmahon Attending Provider MD Hunter Brown Attending Provider [phone] Gypsy Mcmahon Unavailable GYPSY MCMAHON Primary Care Physician DR GYPSY MCMAHON Admitting Unavailable MCMAHON, DR GYPSY Olvera Consulting Unavailable MCMAHON, DR GYPSY Olvera Attending Unavailable MCMAHON, DR GYPSY Olvera Primary Care Unavailable REINVELMA, DR REY Bustamante Attending Unavailabl e REINVELMA, DR REY Bustamante Consulting Unavailabl e VALENTINA, DR REY Bustamante Admitting Unavailabl e MCMAHON, DR GYPSY Olvera Primary Care Unavailable [facility] ., TIFFANIE VALLES Consulting Unavailabl e MCMAHON, DR GYPSY Olvera Admitting Unavailable MCMAHON, DR GYPSY Olvera Attending Unavailable MCMAHON, DR GYPSY Olvera Primary Care Unavailable MCMAHON, DR GYPSY Olvera Consulting Unavailable MCMAHON, DR GYPSY Olvera Primary Care Unavailable MCMAHON, DR GYPSY Olvera Admitting Unavailable MCMAHON, DR GYPSY Olvera Attending Unavailable MCMAHON, DR GYPSY Olvera Consulting Unavailable MCMAHON, DR GYPSY Olvera Admitting Unavailable MCMAHON, DR GYPSY Olvera Consulting Unavailable MCMAHON, DR GYPSY Olvera Attending Unavailable MCMAHON, DR GYPSY Olvera Primary Care Unavailable LISANDRO, [...] MCMAHON, DR GYPSY Olvera Primary Care Unavailable MALATHI VIEIRA Admitting Unavailable MCMAHON, DR GYPSY Olvera Primary Care Unavailable MI NUÑEZ Consulting Unavailable DEB, MALATHI Attending Unavailable DEB, MALATHI Consulting Unavailable MCMAHON, DR GYPSY Olvera Admitting Unavailable MCMAHON, DR GYPSY Olvera Consulting Unavailable MCMAHON, DR GYPSY Olvera Attending Unavailable MCMAHON, DR GYPSY Olvera Primary Care Unavailable HIGHLANDER, CLAU Shrestha Attending Unavailable HIGHLANDER, PETER Fady Admitting Unavailable MCMAHON, DR GYPSY Olvera Primary Care Unavailable HIGHLANDER, CLAU Shrestha Attending Unavailable HIGHLANDER, PETER Fady Admitting Unavailable MCMAHON, DR GYPSY Olvera Primary [...] EMILIE Attending Unavailable CLAU SHAH Consulting Unavailable ARI, MCCORD H Admitting Unavailable ROSE ., MR GIBBONS Consulting Unavailable ARI, MCCORD H Attending Unavailable MCMAHON, DR GYPSY Olvera Primary Care Unavailable ANN LEON Consulting Unavailable SAMSA ., KANDI Consulting Unavailable HERNANDO HAMLIN Consulting Unavailable ARI, MCCORD H Consulting Unavailable GIANA HOLLY Consulting Unavailable KIM ., KATIE HOWELL Consulting Unavailable JENNIFER PLATT Consulting Unavailable GEMTUNG, ROBERT Consulting Unavailable ANG ROMAN Consulting Unavailable PILY, CLAU Shrestha Attending Unavailable PILY, CLAU D Admitting Unavailable MCMAHON, DR GYPSY Olvera Primary Care Unavailable Jose G Ellington Unavailable [facility] AB Attending Unavailable [facility] EHAB Attending Unavailable Malathi Velázquez Unavailable Marvin KWON Attending Unavailable DEB, MALATHI Olvera Attending Unavailable DEB, MALATHI Olvera Attending Unavailable GYPSY MCMAHON Referring Unavailable DEB, MALATHI Olvera Attending Unavailable DEB, MALATHI E Attending Unavailable DEB, MALATHI E Admitting Unavailable DEB, MALATHI E Attending Unavailable DEB, MALATHI E Referring Unavailable MD Jacinto Max Attending Provider MD Jacinto Max Referring Provider [phone] MD Gypsy Mcmahon Primary Care Provider Gypsy [...] Drug Allergy 02-04-20 13 anaphylaxis, Anaphylaxis (disorder) [facility] (20 sources) histamines Drug allergy Unknown [employer] Other (5 sources) Histamine H2 Inhibitors; 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: [Histamine H2 Inhibitors] Allergy to substance 07-16-19 13 Unknown Reaction [facility] (20 sources) levoFLOXacin; 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: [levofloxacin] Drug Allergy 07-01-19 23 Tremor (finding) [facility] (1 source) diphenhydrAMINE Drug Allergy 04-20-19 20 [facility] (1 source) ezetimibe Drug Allergy 04-20-19 20 [facility] (1 source) Gemfibrozil Drug Allergy 04-20-19 20 [facility] (2 sources) Levamisole; 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: [Phenergan] Drug Allergy 07-16-19 13 [facility] (1 source) NSAIDs Drug allergy (disorder) 04-20-19 20 [facility] (1 source) Nasal Decongestant Drug allergy (disorder) 04-20-19 20 [facility] (1 source) Darvocet-N 100 Drug allergy (disorder) 04-20-19 [facility] (9 sources) diphenhydrAMINE; 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: [diphenhydramine] Drug Allergy jumpy,, Unknown [facility] (12 sources) Penicillin; 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: [penicillin] Drug Allergy Eruption of skin (disorder) [facility] (1 source) Histamine; 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: [HISTAMINE] Drug Allergy 02-04-20 13 [facility] (2 sources) Penicillins; 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: [Penicillins] Propensity to adverse reactions 02-25-19 Rash [facility] (1 source) Promethazine Drug Allergy 12-07-19 [facility] Repository Medications Current Medications Medication Drug [...] Daily December 05, 2017 11:00pm lactobacillus acidophilus [id number] unt oral tablet (2 sources) take 1 [...] Start: 05-14-2022 take 1 capsule by mo [facility] every twelve hours Macrobid 100 MG 1 [...] hrs for 14 days Mar, Active Start: 01-26-2023 vancomycin 125 mg Cap 125 mg = 1 cap(s) Start Date: 01/26/23 Status: Ordered Start: 01-26-2023 Vancomycin HCl 250 MG 1 capsule four times a day for 14 days, then 1 capsule twice a day for 14 days Orally as directed for 28 days PLEASE CHECK ALLERGIES Jan, Active Start: 01-26-2023 take 1 capsule by mo [facility] every twenty-four hours Vancomycin HCl 250 MG 1 capsule Orally Once a day for 30 days PLEASE CHECK ALLERGIES Jan, Active Entyvio (20 sources) Integrin Receptor Antagonist Start: 05-19-2022 Entyvio mg, IV, Refills(s) 0 Start Date: 05/19/22 Status: Ordered Entyvio Active Vitamin D 1000 UNIT (6 sources) [facility] Vitamin D 1000 UNIT [...] procedure, # 2 cap(s), Refills(s) 0, Pharmacy: 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#1.00TIFF Normal [facility] ED Note-Physicianon 02-05-20 ED Note-Physician [id number]#1.00TIFF Normal [facility] Lab Reportson 02-04-2023 Lab Reports [id number]#1.00TIFF [facility] Lab Reports [id number]#1.00TIFF [facility] Lab Reports [id number]#1.00TIFF [facility] Consent for Treatmenton 01-09 Consent for Treatment [id number]#1.00TIFF [facility] Retail - Clinical Noteon Retail - Clinical Note [id number]#1.00TIFF [facility] Lab Reportson 01-28-2023 Lab Reports [id number]#1.00TIFF Normal [facility] Physician Orderon 01-28-2023 Physician Order [id number]#1.00TIFF [facility] Urology Office/Clinic Noteon 01-27-2023 Urology [...] Urnls Dip Stick Auto w/o Microscopy POC 45785 2. 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 he agrees w above plan. 3. [...] the risks of side effects etc. Orders: 56089 Measure Post Void residual urine and/or bladder capacity by US- non-imaging Total time spent reviewing previous notes/results/external documents, preparing the chart, conducting the encounter with the patient and family, ordering tests/medications, and documenting the encounter was 40 minutes. Follow-up With When Contact Information MALATHI VIEIRA PA-C, URNirav [address] [place] [address] [phone] Additional Instructions: f/u in Spring Patient Education Urinary Tract Infection, Adult, Rpye-qw-Ptbq Documentation recorded by the scribe Caprice Stratton accurately reflects the services(s) I performed and decisions made by me. Authenticated by Malathi Vieira PA-C on 01/27/2023 13:56:47. ICaprice, personally scribed for Malathi Vieira PA-C on (more content not included)... Normal [facility] Comment on above: Result Comment: Elec [...] Urnls Dip Stick Auto w/o Microscopy POC 37563 Your Care Team Attending Physician - MALATHI [...] MALATHI VIEIRA PA-C Where: [facility] Lab Reportson 01-26-2023 Lab Reports [id number]#1.00TIFF [facility] Patient Educationon 01-27-20 Patient Education [...] these instructions at home: Medicines ? Take gvij-okn-xxaglqj and prescription medicines only as told by [...] provider. Document Revised: 09/06/2020 Document Reviewed: 09/06/2020 [employer] Patient Education ? 2022 Zevia. [facility] Lab Reportson 01-25-2023 Lab Reports [id number]#1.00TIFF [facility] Lab Reports [id number]#1.00TIFF [facility] Lab Reportson 12-04-2022 Lab Reports [id number]#1.00TIFF [facility] Physician Orderon 12-01-2022 Physician Order [id number]#1.00TIFF [facility] Office Visiton 11-11-2022 Follow-up visit [id number] Delicia Hsu 1935 F Date Provider Department Center 11/11/2022 Kulwinder-JAKE BARRY [facility] Family History Problem Relation Age of Onset Aneurysm Mother Heart attack Father Family Status - Relation Status Age at Mother Father Level of Service:35501 [place] OFFICE/OUTPATIENT ESTABLISHED LOW MDM 20-29 MIN Normal [facility] Lab Reportson 09-25-2022 Lab Reports [id number]#1.00CD:127 Normal [facility] Lab Reports [id number]#1.00CD:127 [facility] Physician Orderon 09-23-2022 Physician Order [id number]#1.00CD:127 Normal [facility] Screenson 09-23-2022 Screens [id number]#1.00CD:127 Normal [facility] Ambulatory Visit Summaryon 0 09-22-2022 Ambulatory Visit [...] MALATHI VIEIRA PA-C Where: [facility] Patient Educationon 09-23-19 23 Patient Education [...] these instructions at home: Medicines ? Take egfp-jyd-gqqdccc and prescription medicines only as told by [...] provider. Document Revised: 09/06/2020 Document Reviewed: 09/06/2020 [employer] Patient Education ? 2022 Zevia. [employer] [facility] Urology Office/Clinic Noteon 09-22-2022 Urology Office/Clinic Note [...] symptoms not resolved. C&S this morning at [facility] ( not finalized) UTI symptoms Memory [...] resolved per daughter. C&S this morning at [facility] (not finalized) - will call pt w/ results and send abx if needed. UTI symptoms include memory issues, losses balance, dizziness. 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 2. [...] When Contact Information MALATHI VIEIRA PA-C, URL [address] [place] [address] Additional Instructions: Patient Education Urinary Tract Infection, Adult, Dfha-hu-Apgh Jazlyn Aviles, personally scribed for Malathi Vieira PA-C on [...] 3 mg (more content not included)... Normal [facility] Comment on above: Result Comment: Elec tronically Signed By: MALATHI VIEIRA PA-C\.br\Date and Time Signed: 09/22/22 16:16 EDT\.br\Electronically Co-Signed By: Jazlyn Lucero\.br\Date and Time Co-Signed: 09/22/22 15:38 EDT Lab Reportson 07-02-2022 Lab Reports [id number]#1.00CD:127 Normal [facility] Office Visiton 06-30-2022 Follow-up visit [id number] Delicia Hsu 1935 F Date Provider Department Center 06/30/2022 Kulwinder-JAKE BARRY [facility] Family History Problem Relation Age of Onset Aneurysm Mother Heart attack Father Family Status - Relation Status Age at Mother Father Level of Service:51723 OK OFFICE/OUTPATIENT NEW MODERATE MDM 45-59 MINUTES Normal [facility] Consent for Procedure/Surger yon 06-10-2022 Consent for Procedure/Surgery [id number]#1.00CD:127 [facility] Patient Educationon 06-10-19 Patient Education [...] these instructions at home: Medicines ? Take ward-ivs-vysuocw and prescription medicines only as told by [...] provider. Document Revised: 09/06/2020 Document Reviewed: 09/06/2020 [employer] Patient Education ? 2022 Zevia. [facility] Urology Office/Clinic Noteon 06-09-2022 Urology [...] months 10/10/2022 EDT [facility] [address] [place] [address]- [phone] Additional Instructions: Patient Education Urinary Tract Infection, Adult, Hswi-oa-Ngws IRajani, personally scribed for Dr. Kwon on 06/09/2022 14:30:17. . Documentation recorded by the Rajani sparks, accurately reflects the services(s) I performed and decisions made by me. Problem List/Past Medical History Ongoing Colitis Feeling of incomplete bladder emptying Hyperlip (more content not included)... Normal [facility] Comment on above: Result Comment: Elec tronically Signed By: Marvin KWON MD\.br\Date and Time Signed: 06/09/22 14:35 EDT\.br\Electronically Co-Signed By: Rajani Locke MA\.br\Date and Time Co-Signed: 06/09/22 14:30 EDT Lab Reportson 06-02-2022 Lab Reports [id number]#1.00CD:127 Normal [facility] Lab Reports [id number]#1.00CD:127 Normal [facility] Lab Reports [id number]#1.00CD:127 Normal [facility] Lab Reports [id number]#1.00CD:127 Normal [facility] RAD - CT Reporton 06-02-2022 RAD - CT Report [id number]#1.00CD:127 Normal [facility] CT ABD/PELVIS WO CONon 05-27 CT [...] by: MI NUÑEZ Date: 2022-05-27 10:34 Normal [facility] Physician Referralon 023 Physician Referral [id number]#1.00CD:127 Normal [facility] Ambulatory Visit Summaryon 0 05-19-2022 Ambulatory Visit Summary DELICIA HSU :1935 Visit Date:05/19/2022 Ambulatory Visit Instructions Your Diagnosis Recurrent UTI Feeling of incomplete bladder emptying Colitis Tests Performed Urnls Dip Stick Auto w/o Microscopy POC 71476 CT Abdomen/Pelvis w/ Contrast -- Results Pending [...] ZAZUETA, JEFF BONE When: Where: [address] [facility] [place] [address] Medications What How Much When Instructions New [...] Urnls Dip Stick Auto w/o Microscopy POC 08971 (05/19/2022) Bilirubin Urine Dipstick - Negative Blood Urine Dipstick - Negative Glucose Urine Dipstick - Negative Ketones Urine Dipstick - Trace - 5 mg/dl Leukocytes Urine Dipstick - 1+ Small Nitrite Urine Dipstick - Negative Protein Urine Dipstick - Negative Specific [place] Urine Dipstick - 1.020 Urine Appearance Urine [...] a sper (more content not included)... Normal [facility] Patient Educationon 05-20-19 Patient Education Obstetrics [...] this condition includes: ? Antibiotic medicine. ? Oizc-ksy-wqitqcf medicines to treat discomfort. ? Drinking enough [...] these instructions at home: Medicines ? Take ldac-hzt-cjjmmes and prescription medicines only as told by [...] This in (more content not included)... Normal [facility] Patient Letter FTon 2022 Patient Letter [facility] (Inserted Image. Delaney ble to display) May 19, 2022 Dear Ms Hsu, My apologies that I forgot to write this down for you at your visit today. Here are the rxob-ihp-qxpgjhg supplements I would recommend for UTI prevention: probiotics D-mannose cranberry extract You should be able to find combination products that have all 3 ingredients. Provider Signature: Malathi Vieira PA-C Physician Radar Systems Engineer [facility] [address] [place] [address] Normal [facility] CULTURE URINEon 05-14-2022 CULTURE URINE Culture [...] Trimethoprim/Sulfamethoxazol e <=20 S F Normal [facility] Comment on above: Performed By: #### U RCX #### [facility] [address] [place] [address] Dr. Anthony Bonilla UA RANDOMon 05-11-2022 Bilirubin Ql (U) Negative Normal NEGATIVE [facility] Comment on above: Performed By: #### U RCX #### [facility] [address] [place] [address] Dr. Anthony Bonilla Clarity (U) SL CLOUDY Abnormal CLEAR [facility] Comment on above: Performed By: #### U RCX #### [facility] [address] [place] [address] Dr. Anthony Bonilla Color (U) LT. YELLOW Normal YELLOW [facility] Comment on above: Performed By: #### U RCX #### [facility] [address] [place] [address] Dr. Anthony Bonilla Glucose Ql (U) Negative Normal NEGATIVE [facility] Comment on above: Performed By: #### U RCX #### [facility] [address] [place] [address] Dr. Anthony Bonilla Hemoglobin Ql (U) Negative Normal NEGATIVE [facility] Comment on above: Performed By: #### U RCX #### [facility] [address] [place] [address] Dr. Anthony Bonilla Ketones Ql (U) Negative Normal NEGATIVE [facility] Comment on above: Performed By: #### U RCX #### [facility] [address] [place] [address] Dr. Anthony Bonilla LEUKOCYTES MODERATE Abnormal NEGATIVE [facility] Comment on above: Performed By: #### U RCX #### [facility] [address] [place] [address] Dr. Anthony Bonilla Nitrite Ql (U) Negative Normal NEGATIVE [facility] Comment on above: Performed By: #### U RCX #### [facility] [address] [place] [address] Dr. Anthony Bonilla pH (U) 5.5 [pH] Normal 5-9 [facility] Comment on above: Performed By: #### U RCX #### [facility] [address] [place] [address] Dr. Anthony Bonilla SPEC GRAVITY 1.020 Normal 1.005-<=1. 025 [facility] Comment on above: Performed By: #### U RCX #### [facility] [address] [place] [address] Dr. Anthony Bonilla UA PROTEIN Negative Normal NEGATIVE/ TRACE [facility] Comment on above: Performed By: #### U RCX #### [facility] [address] [place] [address] Dr. Anthony Bonilla Urobilinogen Qn (U) 0.2 {Gen'U}/dL Normal 0.2 - 1. 0 [facility] Comment on above: Performed By: #### U RCX #### [facility] [address] [place] [address] Dr. Anthony Bonilla CULTURE URINEon 05-01-2022 CULTURE [...] F Trimethoprim/Sulfamethoxazol e <=20 S F Normal [facility] Comment on above: Performed By: #### U RCX #### [facility] [address] [place] [address] Dr. Anthony Bonilla CULTURE URINEon 04-16-2022 CULTURE [...] R F Nitrofurantoin 64 I F Normal [facility] Comment on above: Performed By: #### U RCX #### [facility] [address] [place] [address] Dr. Anthony Bonilla UA RANDOMon 04-14-2022 Bilirubin Ql (U) Negative Normal NEGATIVE [facility] Comment on above: Performed By: #### U RCX #### [facility] [address] [place] [address] Dr. Anthony Bonilla Clarity (U) CLEAR Normal CLEAR [facility] Comment on above: Performed By: #### U RCX #### [facility] [address] [place] [address] Dr. Anthony Bonilla Color (U) LT. YELLOW Normal YELLOW [facility] Comment on above: Performed By: #### U RCX #### [facility] [address] [place] [address] Dr. Anthony Bonilla Glucose Ql (U) Negative Normal NEGATIVE [facility] Comment on above: Performed By: #### U RCX #### [facility] [address] [place] [address] Dr. Anthony Bonilla Hemoglobin Ql (U) Negative Normal NEGATIVE [facility] Comment on above: Performed By: #### U RCX #### [facility] [address] [place] [address] Dr. Anthony Bonilla Ketones Ql (U) Negative Normal NEGATIVE [facility] Comment on above: Performed By: #### U RCX #### [facility] [address] [place] [address] Dr. Anthony Bonilla LEUKOCYTES MODERATE Abnormal NEGATIVE [facility] Comment on above: Performed By: #### U RCX #### [facility] [address] [place] [address] Dr. Anthony Bonilla Nitrite Ql (U) Negative Normal NEGATIVE [facility] Comment on above: Performed By: #### U RCX #### [facility] [address] [place] [address] Dr. Anthony Bonilla pH (U) 5.5 [pH] Normal 5-9 [facility] Comment on above: Performed By: #### U RCX #### [facility] [address] [place] [address] Dr. Anthony Bonilla SPEC GRAVITY 1.020 Normal 1.005-<=1. 025 [facility] Comment on above: Performed By: #### U RCX #### [facility] [address] [place] [place] [address] Dr. Anthony Bonilla UA PROTEIN Negative Normal NEGATIVE/ TRACE [facility] Comment on above: Performed By: #### U RCX #### [facility] [address] [place] [address] Dr. Anthony Bonilla Urobilinogen Qn (U) 0.2 {Gen'U}/dL Normal 0.2 - 1. 0 [facility] Comment on above: Performed By: #### U RCX #### [facility] [address] [place] [address] Dr. Anthony Bonilla Urinalysis - DIPSTICKon 03-12 Appearance (U) clear [employer]dit Other Bilirubin Ql (U) small [employer] ast [employer] Other Color (U) dark yellow [employer] Other Glucose Ql (U) Negative [employer]dit Other Hemoglobin Ql (U) Negative [employer] Other Ketones Ql (U) trace [employer]dit Other Leukocyte esterase Test strip Ql (U) small [employer] Other Nitrite Ql (U) Negative [employer] Other pH (U) 5.0 [pH] [employer] Other Protein Ql (U) Negative [employer] Other Specific gravity (U) [Rel density] 1.015 [employer] Other Urobilinogen (U) [Mass/Vol] 0.2 mg/dL [employer] Other Urinalysis - DIPSTICK [employer] Other Urine Cultureon 03-30-2022 Bacteria identified Cx Nom (U) ORGANISM: Yeast Like Organism (O:YLO) [place] Count 10,000 UNABLE TO ISOLATE FOR IDENTIFICATION PERFORMED BY: [place] [address] PATHOLOGIST VISUAL SPECIALIST TIEN VELASQUEZ M.D. Normal [facility] Comment on above: Performed By: #### C UU #### [address] Urine Culture 10,000 [employer] Other Bacteria identified Cx Nom (U) [employer] Other CULTURE URINEon 03-23-2022 CULTURE URINE Isolate 1 Pseudomonas aeruginosa >100,000 cfu/mL of ORGANISM 1 Pseudomonas aeruginosa ANTIBIOTIC M.I.C RX STATUS Piperacillin/Tazobactam 8 S F Ceftazidime 4 S F Imipenem 1 S F Amikacin <=2 S F Gentamicin <=1 S F Tobramycin <=1 S F Ciprofloxacin <=0.25 S F Levofloxacin 0.5 S F Normal [facility] Comment on above: Performed By: #### U RCX #### [facility] [address] [place] [address] Dr. Anthony Bonilla CARDIAC DARWIN ADMITon 023 CK [Catalytic activity/Vol] 137 U/L Normal 26-192 [facility] Comment on above: Performed By: #### U RCX #### [facility] [address] [place] [address] Dr. Anthony Bonilla CK.MB [Mass/Vol] 1.05 ng/mL Normal <=3.60 [facility] Comment on above: Performed By: #### U RCX #### [facility] [address] [place] [address] Dr. Anthony Bonilla HSTROP 17.6 pg/mL Normal 4.0-51.3 [facility] Comment on above: Result Comment: CUT- OFF POINTS HAVE BEEN ESTABLISHED BASED ON THE FOURTH UNIVERSAL DEFINITIONS OF MYOCARDIAL INFARCTION. THE UPPER REFERENCE LIMIT (URL) OF TROPONIN, DEFINED THE 99TH PERCENTILE OF cTnI DISTRIBUTION IN A REFERENCE POPULATION, HAS BEEN CONFIRMED THE DECISION THRESHOLD FOR [place] DIAGNOSIS. Performed By: #### U RCX #### [facility] [address] [place] [address] Dr. Anthony Bonilla CANDIDA 72 ng/mL Normal 9-82 [facility] Comment on above: Performed By: #### U RCX #### [facility] [address] [place] [address] Dr. Anthony Bonilla CBC AUTO DIFFon 03-20-2022 BASO # 0.0 103/ul Normal 0.0-0.1 [facility] Comment on above: Performed By: #### C BC #### [facility] [address] [place] [address] Dr. Anthony Bonilla Basophils/100 WBC (Bld) 0.3 % Normal 0.2-2.0 [facility] Comment on above: Performed By: #### C BC #### [facility] [address] [place] [address] Dr. Anthony Bonilla EO # 0.0 103/ul Normal 0.0-0.7 [facility] Comment on above: Performed By: #### C BC #### [facility] [address] [place] [address] Dr. Anthony Bonilla Eosinophils/100 WBC (Bld) 0.1 % Critically low 0.9-7.0 [facility] Comment on above: Performed By: #### C BC #### [facility] [address] [place] [address] Dr. Anthony Bonilla Erythrocyte distribution width (RBC) [Ratio] 15.9 % Critically high 11.0-15.0 [facility] Comment on above: Performed By: #### C BC #### [facility] [address] [place] [address] Dr. Anthony Bonilla Hematocrit (Bld) [Volume fraction] 33.6 % Critically low 36.0-48.0 [facility] Comment on above: Performed By: #### C BC #### [facility] [address] [place] [address] Dr. Anthony Bonilla Hemoglobin (Bld) [Mass/Vol] 11.2 g/dL Critically low 12.0-16.0 [facility] Comment on above: Performed By: #### C BC #### [facility] [address] [place] [address] Dr. Anthony Bonilla IG # 0.04 10e3/ul Critically high 0.00-0.03 [facility] Comment on above: Performed By: #### C BC #### [facility] [address] [place] [address] Dr. Anthony Bonilla IG % 0.3 % Normal 0.0-0.5 [facility] Comment on above: Performed By: #### C BC #### [facility] [address] [place] [address] Dr. Anthony Bonilla LYMPH # 0.8 103/ul Critically low 1.2-3.8 [facility] Comment on above: Performed By: #### C BC #### [facility] [address] [address] [address] Anthony Bonilla Lymphocytes/100 WBC (Bld) 6.4 % Critically low 20.5-60.0 [facility] Comment on above: Performed By: #### C BC #### [facility] [address] [address] [address] Anthony Bonilla MANUAL DIFF REQ NO Normal [facility] Comment on above: Performed By: #### C BC #### [facility] [address] [place] [address] Dr. Anthony Bonilla MCH (RBC) [Entitic mass] 28.9 pg Normal 26.7-34.0 [facility] Comment on above: Performed By: #### C BC #### [facility] [address] [place] [address] Dr. Anthony Bonilla MCHC (RBC) [Mass/Vol] 33.3 g/dL Normal 29.9-35.2 [facility] Comment on above: Performed By: #### C BC #### [facility] [address] [place] [address] Dr. Anthony Bonilla MCV (RBC) [Entitic vol] 86.8 fL Normal 81.0-99.0 [facility] Comment on above: Performed By: #### C BC #### [facility] [address] [place] [address] Dr. Anthony Bonilla MONO # 1.1 103/ul Critically high 0.3-0.[address] [facility] Comment on above: Performed By: #### C BC #### [facility] [address] [place] [address] Dr. Anthony Bonilla Monocytes/100 WBC (Bld) 8.3 % Normal 1.7-12.0 [facility] Comment on above: Performed By: #### C BC #### [facility] [address] [place] [address] Dr. Anthony Bonilla NEUT # 11.2 103/ul Critically high 1.4-6.5 [facility] Comment on above: Performed By: #### C BC #### [facility] [address] [address] [address] Anthony Bonilla Neutrophils/100 WBC (Bld) 84.6 % Critically high 43.0-75.0 [facility] Comment on above: Performed By: #### C BC #### [facility] [address] [address] [address] Anthony Bonilla Platelet mean volume (Bld) [Entitic vol] 9.7 fL Normal 9.5-13.5 [facility] Comment on above: Performed By: #### C BC #### [facility] [address] [address] [address] Anthony Bonilla PLT 274 103/ul Normal 150-450 [facility] Comment on above: Performed By: #### C BC #### [facility] [address] [address] [address] Anthony Bonilla RBC 3.87 106/ul Critically low 4.20-5.[address] [facility] Comment on above: Performed By: #### C BC #### [facility] [address] [address] [address] Anthony Bonilla WBC 13.2 103/ul Critically high 4.0-11.0 [facility] Comment on above: Performed By: #### C BC #### [facility] [address] [place] [address] HEAD WO CONon [...] CLAU SHAH Date: 2022-03-20 20:30 Normal [facility] ER URINE PROFILEon 3 Bilirubin Ql (U) Negative Normal NEGATIVE [facility] Comment on above: Performed By: #### C BC #### [facility] [address] [place] [address] Dr. Anthony Bonilla Clarity (U) CLEAR Normal CLEAR [facility] Comment on above: Performed By: #### C BC #### [facility] [address] [place] [address] Dr. Anthony Bonilla Color (U) LT. YELLOW Normal YELLOW [facility] Comment on above: Performed By: #### C BC #### [facility] [address] [place] [address] Dr. Anthony Bonilla ERUAHD A micrscopic examina tion will be performed if indicated. Normal [facility] Comment on above: Performed By: #### C BC #### [facility] [address] [place] [address] Dr. Anthony Bonilla Glucose Ql (U) Negative Normal NEGATIVE [facility] Comment on above: Performed By: #### C BC #### [facility] [address] [place] [address] Dr. Anthony Bonilla Hemoglobin Ql (U) LARGE Abnormal NEGATIVE [facility] Comment on above: Performed By: #### C BC #### [facility] [address] [place] [address] Dr. Anthony Bonilla Ketones Ql (U) Negative Normal NEGATIVE [facility] Comment on above: Performed By: #### C BC #### [facility] [address] [place] [address] Dr. Anthony Bonilla LEUKOCYTES SMALL Abnormal NEGATIVE [facility] Comment on above: Performed By: #### C BC #### [facility] [address] [place] [address] Dr. Anthony Bonilla Nitrite Ql (U) Positive Abnormal NEGATIVE [facility] Comment on above: Performed By: #### C BC #### [facility] [address] [place] [address] Dr. Anthony Bonilla pH (U) 7.0 [pH] Normal 5-9 [facility] Comment on above: Performed By: #### C BC #### [facility] [address] [place] [address] Dr. Anthony Bonilla Protein (U) [Mass/Vol] 30 mg/dL Abnormal NEGATIVE/ TRACE [facility] Comment on above: Performed By: #### C BC #### [facility] [address] [place] [address] Dr. Anthony Bonilla SPEC GRAVITY 1.015 Normal 1.005-<=1. 025 [facility] Comment on above: Performed By: #### C BC #### [facility] [address] [place] [address] Dr. Anthony Bonilla UR MICRO IND INDICATED Normal [facility] Comment on above: Performed By: #### C BC #### [facility] [address] [place] [address] Dr. Anthony Bonilla Urobilinogen Qn (U) 1.0 {Gen'U}/dL Normal 0.2 - 1. 0 [facility] Comment on above: Performed By: #### C BC #### [facility] [address] [place] [address] Dr. Anthony Bonilla PROF 14(COMP METB)on 023 Albumin [Mass/Vol] 3.4 g/dL Normal 3.4-5.0 [facility] Comment on above: Performed By: #### U RCX #### [facility] [address] [place] [address] Dr. Anthony Bonilla Albumin/Globulin [Mass ratio] 1.2 {ratio} Normal [facility] Comment on above: Performed By: #### U RCX #### [facility] [address] [address] [address] Anthony Bonilla ALP [Catalytic activity/Vol] 26 U/L Critically low 46-116 [facility] Comment on above: Performed By: #### U RCX #### [facility] [address] [address] [address] Anthony Bonilla ALT [Catalytic activity/Vol] 21 U/L Normal 14-59 [facility] Comment on above: Performed By: #### U RCX #### [facility] [address] [address] [address] Anthony Bonilla Anion gap [Moles/Vol] 13.7 mmol/L Normal [facility] Comment on above: Performed By: #### U RCX #### [facility] [address] [address] [address] Anthony Bonilla AST [Catalytic activity/Vol] 20 U/L Normal 15-37 [facility] Comment on above: Performed By: #### U RCX #### [facility] [address] [address] [address] Anthony Bonilla Bilirubin [Mass/Vol] 1.2 mg/dL Critically high 0.2-1.0 [facility] Comment on above: Performed By: #### U RCX #### [facility] [address] [address] [address] Anthony Bonilla Calcium [Mass/Vol] 9.4 mg/dL Normal 8.5-10.1 [facility] Comment on above: Performed By: #### U RCX #### [facility] [address] [address] [address] Anthony Bonilla Chloride [Moles/Vol] 99 mmol/L Normal 98-107 [facility] Comment on above: Performed By: #### U RCX #### [facility] [address] [address] [address] Anthony Bonilla CO2 [Moles/Vol] 29.1 mmol/L Normal 21.0-32.0 [facility] Comment on above: Performed By: #### U RCX #### [facility] [address] [address] [address] Anthony Bonilla Creatinine [Mass/Vol] 1.02 mg/dL Normal 0.55-1.02 [facility] Comment on above: Performed By: #### U RCX #### [facility] [address] [address] [address] Anthony Bonilla EGFR-AF MAURITIAN >60 Normal >=60 [facility] Comment on above: Performed By: #### U RCX #### [facility] [address] [address] [address] Anthony Bonilla EGFR-NON AF MAURITIAN 52 mL/min/1.73m2 Critically low >=60 [facility] Comment on above: Performed By: #### U RCX #### [facility] [address] [place] [address] Dr. Anthony Bonilla Globulin (S) [Mass/Vol] 2.9 g/dL Normal [facility] Comment on above: Performed By: #### U RCX #### [facility] [address] [place] [address] Dr. Anthony Bonilla Glucose [Mass/Vol] 98 mg/dL Normal 74-106 [facility] Comment on above: Performed By: #### U RCX #### [facility] [address] [place] [address] Dr. Anthony Bonilla Potassium [Moles/Vol] 3.8 mmol/L Normal 3.5-5.1 [facility] Comment on above: Performed By: #### U RCX #### [facility] [address] [address] [address] Anthony Bonilla Protein [Mass/Vol] 6.3 g/dL Critically low 6.4-8.2 [facility] Comment on above: Performed By: #### U RCX #### [facility] [address] [address] [address] Anthony Bonilla Sodium [Moles/Vol] 138 mmol/L Normal 136-145 [facility] Comment on above: Performed By: #### U RCX #### [facility] [address] [place] [address] Dr. Anthony Bonilla Urea nitrogen [Mass/Vol] 16.0 mg/dL Normal 7.0-18.0 [facility] Comment on above: Performed By: #### U RCX #### [facility] [address] [place] [address] Dr. Anthony Bonilla Urea nitrogen/Creatinine [Mass ratio] 15.7 mg/mg Normal [facility] Comment on above: Performed By: #### U RCX #### [facility] [address] [place] [address] Dr. Anthony Bonilla URINE MICROSCOPIC ONLYon BACTERIA LARGE Abnormal NONE SEEN [facility] Comment on above: Performed By: #### C BC #### [facility] [address] [place] [address] Dr. Anthony Bonilla Bacteria identified Cx Nom (U) INDICATED Normal [facility] Comment on above: Performed By: #### C BC #### [facility] [address] [place] [address] Dr. Anthony Bonilla CAST NONE SEEN Normal NONE SEEN [facility] Comment on above: Performed By: #### C BC #### [facility] [address] [place] [address] Dr. Anthony Bonilla Crystals LM Nom (Urine sed) NONE SEEN Normal NONE SEEN [facility] Comment on above: Performed By: #### C BC #### [facility] [address] [place] [address] Dr. Anthony Bonilla Epithelial cells LM Ql (Urine sed) FEW Abnormal NONE SEEN /RARE [facility] Comment on above: Performed By: #### C BC #### [facility] [address] [place] [address] Dr. Anthony Bonilla MUCOUS NONE SEEN Normal NONE SEEN [facility] Comment on above: Performed By: #### C BC #### [facility] [address] [place] [address] Dr. Anthony Bonilla RBC 10-20 Abnormal 0-2 [facility] Comment on above: Performed By: #### C BC #### [facility] [address] [place] [address] Dr. Anthony Bonilla WBC 50-75 Abnormal NONE SEEN [facility] Comment on above: Performed By: #### C BC #### [facility] [address] [place] [address] Dr. Anthony Bonilla CALPROTECTIN, FECALon 2022 Calprotectin, Fecal 416 ug/g Critically high 0-120 [facility] Comment on above: Result Comment: Conc entration Interpretation Follow-Up <16 - 50 ug/g Normal None >50 -120 ug/g Borderline Re-evaluate in 4-6 weeks >120 ug/g Abnormal Repeat as clinically indicated Performed By: #### U RCX #### [facility] [address] [place] [address] Dr. Anthony Bonilla QUANTIFERON TB GOLD PLUSon 0 02-19-2022 QuantiFERON Criteria Comment Normal [facility] Comment on above: Result Comment: Butch tiFERON-TB [...] test. Performed By: #### U RCX #### [facility] [address] [place] [address] Dr. Anthony Bonilla QuantiFERON Incubation Incubation performed. Normal [facility] Comment on above: Performed By: #### U RCX #### [facility] [address] [place] [address] Dr. Anthony Bonilla QuantiFERON Mitogen Value >10.00 Normal [facility] Comment on above: Performed By: #### U RCX #### [facility] [address] [place] [address] Dr. Anthony Bonilla QuantiFERON Nil Value 0.07 IU/mL Normal [facility] Comment on above: Performed By: #### U RCX #### [facility] [address] [place] [address] Dr. Anthony Bonilla QuantiFERON TB1 Ag Value 0.08 IU/mL Normal [facility] Comment on above: Performed By: #### U RCX #### [facility] [address] [place] [address] Dr. Anthony Bonilla QuantiFERON TB2 Ag Value 0.07 IU/mL Normal [facility] Comment on above: Performed By: #### U RCX #### [facility] [address] [place] [address] Dr. Anthony Bonilla QuantiFERON-TB Gold Plus Negative Normal Negative [facility] Comment on above: Result Comment: No r esponse to M tuberculosis antigens detected. Infection with M tuberculosis is unlikely, but high risk individuals should be considered for additional testing (ATS/IDSA/CDC Clinical Practice Guidelines, 2017). The reference range is an Antigen minus Nil result of <0.35 IU/mL. Chemiluminescence immunoassay methodology Performed By: #### U RCX #### [facility] [address] [place] [address] Dr. Anthony Bonilla HEP B SURFACE ANTIGEN SCREEN on 02-18-2022 HBsAg Screen Negative Normal Negative [facility] Comment on above: Performed By: #### U RCX #### [facility] [address] [place] [address] Dr. Anthony Bonilla HEPATITIS B CORE, IgMon 02-08 Hep B Core Ab, IgM Negative Normal Negative [facility] Comment on above: Performed By: #### U RCX #### [facility] [address] [place] [address] Dr. Anthony Bonilla HEPATITIS B SURFACE ANTIBODY , QUANTon 02-18-2022 Hepatitis B Surf AB Quant <3.1 Critically low Immunity>9 .9 [facility] Comment on above: Result Comment: Stat us of Immunity Anti-HBs Level Inconsistent with Immunity 0.0 - 9.9 Consistent with Immunity >9.9 Performed By: #### C BC #### [facility] [address] [place] [address] Dr. Anthony Bonilla CBC AUTO DIFFon 02-17-2022 BASO # 0.0 103/ul Normal 0.0-0.1 [facility] Comment on above: Performed By: #### U RCX #### [facility] [address] [place] [address] Dr. Anthony Bonilla Basophils/100 WBC (Bld) 0.4 % Normal 0.2-2.0 [facility] Comment on above: Performed By: #### U RCX #### [facility] [address] [place] [address] Dr. Anthony Bonilla EO # 0.0 103/ul Normal 0.0-0.7 [facility] Comment on above: Performed By: #### U RCX #### [facility] [address] [place] [address] Dr. Anthony Bonilla Eosinophils/100 WBC (Bld) 0.5 % Critically low 0.9-7.0 [facility] Comment on above: Performed By: #### U RCX #### [facility] [address] [place] [address] Dr. Anthony Bonilla Erythrocyte distribution width (RBC) [Ratio] 14.7 % Normal 11.0-15.0 [facility] Comment on above: Performed By: #### U RCX #### [facility] [address] [place] [address] Dr. Anthony Bonilla Hematocrit (Bld) [Volume fraction] 33.2 % Critically low 36.0-48.0 [facility] Comment on above: Performed By: #### U RCX #### [facility] [address] [place] [address] Dr. Anthony Bonilla Hemoglobin (Bld) [Mass/Vol] 11.0 g/dL Critically low 12.0-16.0 [facility] Comment on above: Performed By: #### U RCX #### [facility] [address] [place] [address] Dr. Anthony Bonilla IG # 0.02 10e3/ul Normal 0.00-0.03 [facility] Comment on above: Performed By: #### U RCX #### [facility] [address] [address] [address] Anthony Bonilla IG % 0.2 % Normal 0.0-0.5 [facility] Comment on above: Performed By: #### U RCX #### [facility] [address] [address] [address] Anthony Bonilla LYMPH # 1.3 103/ul Normal 1.2-3.8 [facility] Comment on above: Performed By: #### U RCX #### [facility] [address] [address] [address] Anthony Bonilla Lymphocytes/100 WBC (Bld) 14.8 % Critically low 20.5-60.0 [facility] Comment on above: Performed By: #### U RCX #### [facility] [address] [place] [address] Dr. Anthony Bonilla MANUAL DIFF REQ NO Normal [facility] Health Comment on above: Performed By: #### U RCX #### [facility] [address] [place] [address] Dr. Anthony Bonilla MCH (RBC) [Entitic mass] 29.0 pg Normal 26.7-34.0 [facility] Comment on above: Performed By: #### U RCX #### [facility] [address] [place] [address] Dr. Anthony Bonilla MCHC (RBC) [Mass/Vol] 33.1 g/dL Normal 29.9-35.2 [facility] Comment on above: Performed By: #### U RCX #### [facility] [address] [place] [address] Dr. Anthony Bonilla MCV (RBC) [Entitic vol] 87.6 fL Normal 81.0-99.0 [facility] Comment on above: Performed By: #### U RCX #### [facility] [address] [place] [address] Dr. Anthony Bonilla MONO # 0.8 103/ul Normal 0.3-0.8 [facility] Comment on above: Performed By: #### U RCX #### [facility] [address] [address] [address] Anthony Bonilla Monocytes/100 WBC (Bld) 9.6 % Normal 1.7-12.0 [facility] Comment on above: Performed By: #### U RCX #### [facility] [address] [address] [address] Anthony Bonilla NEUT # 6.3 103/ul Normal 1.4-6.5 [facility] Comment on above: Performed By: #### U RCX #### [facility] [address] [address] [address] Anthony Bonilla Neutrophils/100 WBC (Bld) 74.5 % Normal 43.0-75.0 [facility] Comment on above: Performed By: #### U RCX #### [facility] [address] [place] [address] Dr. Anthony Bonilla Platelet mean volume (Bld) [Entitic vol] 9.8 fL Normal 9.5-13.5 [facility] Comment on above: Performed By: #### U RCX #### [facility] [address] [address] [address] Anthony Bonilla PLT 318 103/ul Normal 150-450 [facility] Comment on above: Performed By: #### U RCX #### [facility] [address] [address] [address] Anthony Bonilla RBC 3.79 106/ul Critically low 4.20-5.[address] [facility] Comment on above: Performed By: #### U RCX #### [facility] [address] [address] [address] Anthony Bonilla WBC 8.5 103/ul Normal 4.0-11.0 [facility] Comment on above: Performed By: #### U RCX #### [facility] [address] [address] [address] Anthony Bonilla PROF 14(COMP METB)on 023 Albumin [Mass/Vol] 3.6 g/dL Normal 3.4-5.0 [facility] Comment on above: Performed By: #### U RCX #### [facility] [address] [address] [address] Anthony Bonilla Albumin/Globulin [Mass ratio] 1.2 {ratio} Normal [facility] Comment on above: Performed By: #### U RCX #### [facility] [address] [address] [address] Anthony Bonilla ALP [Catalytic activity/Vol] 27 U/L Critically low 46-116 [facility] Comment on above: Performed By: #### U RCX #### [facility] [address] [address] [address] Anthony Bonilla ALT [Catalytic activity/Vol] 21 U/L Normal 14-59 [facility] Comment on above: Performed By: #### U RCX #### [facility] [address] [place] [address] Dr. Anthony Bonilla Anion gap [Moles/Vol] 13.5 mmol/L Normal [facility] Comment on above: Performed By: #### U RCX #### [facility] [address] [place] [address] Dr. Anthony Bonilla AST [Catalytic activity/Vol] 19 U/L Normal 15-37 [facility] Comment on above: Performed By: #### U RCX #### [facility] [address] [place] [address] Dr. Anthony Bonilla Bilirubin [Mass/Vol] 0.6 mg/dL Normal 0.2-1.0 [facility] Comment on above: Performed By: #### U RCX #### [facility] [address] [address] [address] Anthony Bonilla Calcium [Mass/Vol] 9.2 mg/dL Normal 8.5-10.1 [facility] Comment on above: Performed By: #### U RCX #### [facility] [address] [address] [address] Anthony Bonilla Chloride [Moles/Vol] 104 mmol/L Normal 98-107 [facility] Comment on above: Performed By: #### U RCX #### [facility] [address] [address] [address] Anthony Bonilla CO2 [Moles/Vol] 28.9 mmol/L Normal 21.0-32.0 [facility] Comment on above: Performed By: #### U RCX #### [facility] [address] [address] [address] Anthony Bonilla Creatinine [Mass/Vol] 1.21 mg/dL Critically high 0.55-1.02 [facility] Comment on above: Performed By: #### U RCX #### [facility] [address] [address] [address] Anthony Bonilla EGFR-AF MAURITIAN 51 mL/min/1.73m2 Critically low >=60 [facility] Comment on above: Performed By: #### U RCX #### [facility] [address] [address] [address] Anthony Bonilla EGFR-NON AF MAURITIAN 42 mL/min/1.73m2 Critically low >=60 [facility] Comment on above: Performed By: #### U RCX #### [facility] [address] [address] [address] Anthony Bonilla Globulin (S) [Mass/Vol] 3.1 g/dL Normal [facility] Comment on above: Performed By: #### U RCX #### [facility] [address] [address] [address] Anthony Bonilla Glucose [Mass/Vol] 107 mg/dL Critically high 74-106 [facility] Comment on above: Performed By: #### U RCX #### [facility] [address] [address] [address] Anthony Bonilla Potassium [Moles/Vol] 3.4 mmol/L Critically low 3.5-5.1 [facility] Comment on above: Performed By: #### U RCX #### [facility] [address] [address] [address] Anthony Bonilla Protein [Mass/Vol] 6.7 g/dL Normal 6.4-8.2 [facility] Comment on above: Performed By: #### U RCX #### [facility] [address] [place], [place] [address] Dr. Anthony Bonilla Sodium [Moles/Vol] 143 mmol/L Normal 136-145 [facility] Comment on above: Performed By: #### U RCX #### [facility] [address] [place], [place] [address] Dr. Anthony Bonilla Urea nitrogen [Mass/Vol] 22.0 mg/dL Critically high 7.0-18.0 [facility] Comment on above: Performed By: #### U RCX #### [facility] [address] [place], [place] [address] Dr. Anthony Bonilla Urea nitrogen/Creatinine [Mass ratio] 18.2 mg/mg Normal [facility] Comment on above: Performed By: #### U RCX #### [facility] [address] [address] [address] Anthony Bonilla Automated erythrocytes count in urine sediment (number/area)Ordered By: Gypsy Mcmahon on 02-16-2022 RBC Auto (Urine sed) [#/Area] 0-1 [HPF] 0-4 [facility] Automated leukocytes count i n urine sediment (number/area)Ordered By: Gypsy Mcmahon on 02-16-2022 WBC Auto (Urine sed) [#/Area] 20-49 [HPF] 0-4 [facility] Bilirubin Test strip Ql (U)O rdered By: Gypsy Mcmahon on 02-16-2022 Bilirubin Ql (U) Negative Negative [facility] Color Auto (U)Ordered By: Nicole Mcmahon on 02-16-2022 Color (U) Yellow Yellow [facility] Ketones Auto test strip (U) [Mass/Vol]Ordered By: Gypsy Mcmahon on 02-16-2022 Ketones (U) [Mass/Vol] Trace Negative [facility] - UrinalysisOrder ed By: Gypsy Mcmahon on 02-16-2022 Hyaline casts LM Ql (Urine sed) 9-19 [LPF] 0-8 [facility] Nitrite Test strip Ql (U)Ord ered By: Gypsy Mcmahon on 02-16-2022 Nitrite Ql (U) Positive Negative [facility] Protein Auto test strip (U) [Mass/Vol]Ordered By: Gypsy Mcmahon on 02-16-2022 Protein (U) [Mass/Vol] Negative Negative [facility] Specific gravity Auto test s trip (U) [Rel density]Ordered By: Gypsy Mcmahon on 02-16-2022 Specific gravity (U) [Rel density] 1.018 1.001-1.03 0 [facility] Squamous epithelial cells de tection in urine sediment by light microscopyOrdered By: Gypsy Mcmahon on 02-16-2022 Epithelial cells.squamous LM Ql (Urine sed) 5-9 [HPF] 0-2 [facility] Urine Cultureon 02-16-2022 Urine Culture >100,000 [employer] Other Urine Culture <16 Susceptible tibdit Other Urine Culture <8/4 Susceptible tibdit Other Urine Culture <4 Susceptible tibdit Other Urine Culture <2 Susceptible tibdit Other Urine Culture <1 Susceptible [employer]dit Other Urine Culture <0.25 Susceptible [employer] Other Urine Culture <0.5 Susceptible [employer]dit Other Urine Culture <32 Susceptible [employer]dit Other Urine Culture <0.5/9.5 Susceptible [employer]dit Other Urine bacteria detection by automated methodOrdered By: Gypsy Mcmahon on 02-16-2022 Bacteria Auto Ql (U) 2+ None Seen [facility] Urine clarity by refractomet ry automatedOrdered By: Gypsy Mcmahon on 02-16-2022 Clarity Refractometry automated (U) Cloudy Clear [facility] Urine culture routineOrdered By: Gypsy Mcmahon on 02-16-2022 Bacteria identified Cx Nom (U) Klebsiella variicola [facility] Urine glucose measurement by automated test strip (mass/volume)Ordered By: Gypsy Mcmahon on 02-16-2022 Glucose Auto test strip (U) [Mass/Vol] Normal mg/dL Normal [facility] Urine hemoglobin detection b y automated test stripOrdered By: Gypsy Mcmahon on 02-16-2022 Hemoglobin Auto test strip Ql (U) Negative Negative [facility] Urine leukocyte esterase det ection by automated test stripOrdered By: Gypsy Mcmahon on 02-16-2022 Leukocyte esterase Auto test strip Ql (U) 2+ Negative [facility] Urobilinogen Auto test strip (U) [Mass/Vol]Ordered By: Gypsy Mcmahon on 02-16-2022 Urobilinogen (U) [Mass/Vol] Normal mg/dL Normal [facility] pH Auto test strip (U)Ordere d By: Gypsy Mcmahon on 02-16-2022 pH (U) 5.5 [pH] 5.0-9.0 [facility] CBC AUTO DIFFon 01-15-2022 BASO # 0.0 103/ul Normal 0.0-0.1 [facility] Comment on above: Performed By: #### C BC #### [facility] [address] [place] [address] Dr. Anthony Bonilla Basophils/100 WBC (Bld) 0.5 % Normal 0.2-2.0 [facility] Comment on above: Performed By: #### C BC #### [facility] [address] [place] [address] Dr. Anthony Bonilla EO # 0.1 103/ul Normal 0.0-0.7 [facility] Comment on above: Performed By: #### C BC #### [facility] [address] [place] [address] Dr. Anthony Bonilla Eosinophils/100 WBC (Bld) 0.9 % Normal 0.9-7.0 [facility] Comment on above: Performed By: #### C BC #### [facility] [address] [place] [address] Dr. Anthony Bonilla Erythrocyte distribution width (RBC) [Ratio] 14.8 % Normal 11.0-15.0 [facility] Comment on above: Performed By: #### C BC #### [facility] [address] [place] [address] Dr. Anthony Bonilla Hematocrit (Bld) [Volume fraction] 30.3 % Critically low 36.0-48.0 [facility] Comment on above: Performed By: #### C BC #### [facility] [address] [place] [address] Dr. Anthony Bonilla Hemoglobin (Bld) [Mass/Vol] 9.8 g/dL Critically low 12.0-16.0 [facility] Comment on above: Performed By: #### C BC #### [facility] [address] [place] [address] Dr. Anthony Bonilla IG # 0.03 10e3/ul Normal 0.00-0.03 [facility] Comment on above: Performed By: #### C BC #### [facility] [address] [place] [address] Dr. Anthony Bonilla IG % 0.3 % Normal 0.0-0.5 [facility] Comment on above: Performed By: #### C BC #### [facility] [address] [place] [address] Dr. Anthony Bonilla LYMPH # 1.4 103/ul Normal 1.2-3.8 [facility] Comment on above: Performed By: #### C BC #### [facility] [address] [place] [address] Dr. Anthony Bonilla Lymphocytes/100 WBC (Bld) 15.7 % Critically low 20.5-60.0 [facility] Comment on above: Performed By: #### C BC #### [facility] [address] [place] [address] Dr. Anthony Bonilla MANUAL DIFF REQ NO Normal [facility] Comment on above: Performed By: #### C BC #### [facility] [address] [place] [address] Dr. Anthony Bonilla MCH (RBC) [Entitic mass] 30.0 pg Normal 26.7-34.0 [facility] Comment on above: Performed By: #### C BC #### [facility] [address] [place] [address] Dr. Anthony Bonilla MCHC (RBC) [Mass/Vol] 32.3 g/dL Normal 29.9-35.2 [facility] Comment on above: Performed By: #### C BC #### [facility] [address] [place] [address] Dr. Anthony Bonilla MCV (RBC) [Entitic vol] 92.7 fL Normal 81.0-99.0 [facility] Comment on above: Performed By: #### C BC #### [facility] [address] [place] [address] Dr. Anthony Bonilla MONO # 1.1 103/ul Critically high 0.3-0.8 [facility] Comment on above: Performed By: #### C BC #### [facility] [address] [place] [address] Dr. Anthony Bonilla Monocytes/100 WBC (Bld) 12.0 % Normal 1.7-12.0 [facility] Comment on above: Performed By: #### C BC #### [facility] [address] [place] [address] Dr. Anthony Bonilla NEUT # 6.2 103/ul Normal 1.4-6.5 [facility] Comment on above: Performed By: #### C BC #### [facility] [address] [place] [address] Dr. Anthony Bonilla Neutrophils/100 WBC (Bld) 70.6 % Normal 43.0-75.0 [facility] Comment on above: Performed By: #### C BC #### [facility] [address] [place] [address] Dr. Anthony Bonilla Platelet mean volume (Bld) [Entitic vol] 9.8 fL Normal 9.5-13.5 [facility] Comment on above: Performed By: #### C BC #### [facility] [address] [place] [address] Dr. Anthony Bonilla PLT 305 103/ul Normal 150-450 [facility] Comment on above: Performed By: #### C BC #### [facility] [address] [place] [address] Dr. Anthony Bonilla RBC 3.27 106/ul Critically low 4.20-5.40 [facility] Comment on above: Performed By: #### C BC #### [facility] [address] [place] [address] Dr. Anthony Bonilla WBC 8.7 103/ul Normal 4.0-11.0 [facility] Comment on above: Performed By: #### C BC #### [facility] [address] [place] [address] Dr. Anthony Bonilla PROF CHEM 8 (BAS METB)on Anion gap [Moles/Vol] 12.2 mmol/L Normal [facility] Comment on above: Performed By: #### U RCX #### [facility] [address] [place] [address] Dr. Anthony Bonilla Calcium [Mass/Vol] 9.1 mg/dL Normal 8.5-10.1 [facility] Comment on above: Performed By: #### U RCX #### [facility] [address] [place] [address] Dr. Anthony Bonilla Chloride [Moles/Vol] 104 mmol/L Normal 98-107 [facility] Comment on above: Performed By: #### U RCX #### [facility] [address] [place] [address] Dr. Anthony Bonilla CO2 [Moles/Vol] 24.4 mmol/L Normal 21.0-32.0 [facility] Comment on above: Performed By: #### U RCX #### [facility] [address] [place] [address] Dr. Anthony Bonilla Creatinine [Mass/Vol] 1.20 mg/dL Critically high 0.55-1.02 [facility] Comment on above: Performed By: #### U RCX #### [facility] [address] [place] [address] Dr. Anthony Bonilla EGFR-AF MAURITIAN 52 mL/min/1.73m2 Critically low >=60 [facility] Comment on above: Performed By: #### U RCX #### [facility] [address] [place] [address] Dr. Anthony Bonilla EGFR-NON AF MAURITIAN 43 mL/min/1.73m2 Critically low >=60 [facility] Comment on above: Performed By: #### U RCX #### [facility] [address] [address] [address] Anthony Bonilla Glucose [Mass/Vol] 81 mg/dL Normal 74-106 [facility] Comment on above: Performed By: #### U RCX #### [facility] [address] [address] [address] Anthony Bonilla Potassium [Moles/Vol] 3.6 mmol/L Normal 3.5-5.1 [facility] Comment on above: Performed By: #### U RCX #### [facility] [address] [place] [address] Dr. Anthony Bonilla Sodium [Moles/Vol] 137 mmol/L Normal 136-145 [facility] Comment on above: Performed By: #### U RCX #### [facility] [address] [address] [address] Anthony Bonilla Urea nitrogen [Mass/Vol] 21.0 mg/dL Critically high 7.0-18.0 [facility] Comment on above: Performed By: #### U RCX #### [facility] [address] [place] [address] Dr. Anthony Bonilla Urea nitrogen/Creatinine [Mass ratio] 17.5 mg/mg Normal [facility] Comment on above: Performed By: #### U RCX #### [facility] [address] [place] [address] Dr. Anthony Bonilla CULTURE URINEon 12-29-2021 CULTURE [...] Trimethoprim/Sulfamethoxazol e <=20 S F Normal [facility] Comment on above: Performed By: #### U RCX #### [facility] [address] [place] [address] Dr. Anthony Bonilla ER URINE PROFILEon 2 Bilirubin Ql (U) SMALL Abnormal NEGATIVE [facility] Comment on above: Performed By: #### C BC #### [facility] [address] [place] [address] Dr. Anthony Bonilla Clarity (U) SL CLOUDY Abnormal CLEAR [facility] Comment on above: Performed By: #### C BC #### [facility] [address] [place] [address] Dr. Anthony Bonilla Color (U) YELLOW Normal YELLOW [facility] Comment on above: Performed By: #### C BC #### [facility] [address] [place] [address] Dr. Anthony Bonilla ERUJOHNNYD A micrscopic examina tion will be performed if indicated. Normal [facility] Comment on above: Performed By: #### C BC #### [facility] [address] [place] [address] Dr. Anthony Bonilla Glucose Ql (U) Negative Normal NEGATIVE [facility] Comment on above: Performed By: #### C BC #### [facility] [address] [place] [address] Dr. Anthony Bonilla Hemoglobin Ql (U) Negative Normal NEGATIVE [facility] Comment on above: Performed By: #### C BC #### [facility] [address] [place] [address] Dr. Anthony Bonilla Ketones Ql (U) TRACE Abnormal NEGATIVE [facility] Comment on above: Performed By: #### C BC #### [facility] [address] [place] [address] Dr. Anthony Bonilla LEUKOCYTES MODERATE Abnormal NEGATIVE [facility] Comment on above: Performed By: #### C BC #### [facility] [address] [place] [address] Dr. Anthony Bonilla Nitrite Ql (U) Positive Abnormal NEGATIVE [facility] Comment on above: Performed By: #### C BC #### [facility] [address] [place] [address] Dr. Anthony Bonilla pH (U) 7.5 [pH] Normal 5-9 [facility] Comment on above: Performed By: #### C BC #### [facility] [address] [place] [address] Dr. Anthony Bonilla Protein (U) [Mass/Vol] 30 mg/dL Abnormal NEGATIVE/ TRACE [facility] Comment on above: Performed By: #### C BC #### [facility] [address] [place] [address] Dr. Anthony Bonilla SPEC GRAVITY 1.020 Normal 1.005-<=1. 025 [facility] Comment on above: Performed By: #### C BC #### [facility] [address] [place] [address] Dr. Anthony Bonilla UR MICRO IND INDICATED Normal [facility] Comment on above: Performed By: #### C BC #### [facility] [address] [place] [address] Dr. Anthony Bonilla Urobilinogen Qn (U) 0.2 {Gen'U}/dL Normal 0.2 - 1. 0 [facility] Comment on above: Performed By: #### C BC #### [facility] [address] [place] [address] Dr. Anthony Bonilla URINE MICROSCOPIC ONLYon BACTERIA TRACE Abnormal NONE SEEN [facility] Comment on above: Performed By: #### C BC #### [facility] [address] [place] [address] Dr. Anthony Bonilla Bacteria identified Cx Nom (U) INDICATED Normal [facility] Comment on above: Performed By: #### C BC #### [facility] [address] [place] [address] Dr. Anthony Bonilla CAST NONE SEEN Normal NONE SEEN [facility] Comment on above: Performed By: #### C BC #### [facility] [address] [place] [address] Dr. Anthony Bonilla Crystals LM Nom (Urine sed) NONE SEEN Normal NONE SEEN [facility] Comment on above: Performed By: #### C BC #### [facility] [address] [place] [address] Dr. Anthony Bonilla Epithelial cells LM Ql (Urine sed) FEW Abnormal NONE SEEN /RARE [facility] Comment on above: Performed By: #### C BC #### [facility] [address] [place] [address] Dr. Anthony Bonilla MUCOUS NONE SEEN Normal NONE SEEN [facility] Comment on above: Performed By: #### C BC #### [facility] [address] [place] [address] Dr. Anthony Bonilla RBC 0-2 Normal 0-2 [facility] Comment on above: Performed By: #### C BC #### [facility] [address] [place] [address] Dr. Anthony Bonilla WBC 5-10 Abnormal NONE SEEN [facility] Comment on above: Performed By: #### C BC #### [facility] [address] [place] [address] Dr. Anthony Bonilla PRBC LEUKOREDUCEDon 11-20-19 PRBC LEUKOREDUCED Cross Match Result Compatible Unit Blood Type A Pos Unit Number [id number] Status Information Transfused Product ID Red Blood Cells Product Code [id number] Normal [facility] Comment on above: Performed By: #### P RBC #### [facility] [address] [place] [address] Dr. Anthony Bonilla CBC AUTO DIFFon 11-10-2021 BASO # 0.0 103/ul Normal 0.0-0.1 [facility] [facility] Comment on above: Performed By: #### C BC #### [facility] [address] [address] [address] Anthony Bonilla Basophils/100 WBC (Bld) 0.7 % Normal 0.2-2.0 [facility] Comment on above: Performed By: #### C BC #### [facility] [address] [address] [address] Anthony Bonilla EO # 0.2 103/ul Normal 0.0-0.7 [facility] Comment on above: Performed By: #### C BC #### [facility] [address] [place] [address] Dr. Anthony Bonilla Eosinophils/100 WBC (Bld) 2.7 % Normal 0.9-7.0 [facility] Comment on above: Performed By: #### C BC #### [facility] [address] [place] [address] Dr. Anthony Bonilla Erythrocyte distribution width (RBC) [Ratio] 16.3 % Critically high 11.0-15.0 [facility] Comment on above: Performed By: #### C BC #### [facility] [address] [place] [address] Dr. Anthony Bonilla Hematocrit (Bld) [Volume fraction] 29.0 % Critically low 36.0-48.0 [facility] Comment on above: Performed By: #### C BC #### [facility] [address] [place] [address] Dr. Anthony Bonilla Hemoglobin (Bld) [Mass/Vol] 9.4 g/dL Critically low 12.0-16.0 [facility] Comment on above: Performed By: #### C BC #### [facility] [address] [place] [address] Dr. Anthony Bonilla IG # 0.04 10e3/ul Critically high 0.00-0.03 [facility] Comment on above: Performed By: #### C BC #### [facility] [address] [place] [address] Dr. Anthony Bonilla IG % 0.7 % Critically high 0.0-0.5 [facility] Comment on above: Performed By: #### C BC #### [facility] [address] [place] [address] Dr. Anthony Bonilla LYMPH # 1.2 103/ul Normal 1.2-3.8 [facility] Comment on above: Performed By: #### C BC #### [facility] [address] [place] [address] Dr. Anthony Bonilla Lymphocytes/100 WBC (Bld) 21.5 % Normal 20.5-60.0 [facility] Comment on above: Performed By: #### C BC #### [facility] [address] [place] [address] Dr. Anthony Bonilla MANUAL DIFF REQ NO Normal [facility] Comment on above: Performed By: #### C BC #### [facility] [address] [place] [address] Dr. Anthony Bonilla MCH (RBC) [Entitic mass] 32.3 pg Normal 26.7-34.0 [facility] Comment on above: Performed By: #### C BC #### [facility] [address] [place] [address] Dr. Anthony Bonilla MCHC (RBC) [Mass/Vol] 32.4 g/dL Normal 29.9-35.2 [facility] Comment on above: Performed By: #### C BC #### [facility] [address] [place] [address] Dr. Anthony Bonilla MCV (RBC) [Entitic vol] 99.7 fL Critically high 81.0-99.0 [facility] Comment on above: Performed By: #### C BC #### [facility] [address] [place] [address] Dr. Anthony Bonilla MONO # 0.7 103/ul Normal 0.3-0.8 [facility] Comment on above: Performed By: #### C BC #### [facility] [address] [place] [address] Dr. Anthony Bonilla Monocytes/100 WBC (Bld) 12.6 % Critically high 1.7-12.0 [facility] Comment on above: Performed By: #### C BC #### [facility] [address] [place] [address] Dr. Anthony Bonilla NEUT # 3.4 103/ul Normal 1.4-6.5 [facility] Comment on above: Performed By: #### C BC #### [facility] [address] [place] [address] Dr. Anthony Bonilla Neutrophils/100 WBC (Bld) 61.8 % Normal 43.0-75.0 [facility] Comment on above: Performed By: #### C BC #### [facility] [address] [place] [address] Dr. Anthony Bonilla Platelet mean volume (Bld) [Entitic vol] 9.0 fL Critically low 9.5-13.5 [facility] Comment on above: Performed By: #### C BC #### [facility] [address] [place] [address] Dr. Anthony Bonilla PLT 429 103/ul Normal 150-450 [facility] Comment on above: Performed By: #### C BC #### [facility] [address] [place] [address] Dr. Anthony Bonilla RBC 2.91 106/ul Critically low 4.20-5.[address] [facility] Comment on above: Performed By: #### C BC #### [facility] [address] [place] [address] Dr. Anthony Bonilla WBC 5.5 103/ul Normal 4.0-11.0 [facility] Comment on above: Performed By: #### C BC #### [facility] [address] [place] [address] Dr. Anthony Bonilla PROF CHEM 8 (BAS METB)on Anion gap [Moles/Vol] 11.0 mmol/L Normal [facility] Comment on above: Performed By: #### B MP #### [facility] [address] [place] [address] Dr. Anthony Bonilla Calcium [Mass/Vol] 9.2 mg/dL Normal 8.5-10.1 [facility] Comment on above: Performed By: #### B MP #### [facility] [address] [place] [address] Dr. Anthony Bonilla Chloride [Moles/Vol] 107 mmol/L Normal 98-107 [facility] Comment on above: Performed By: #### B MP #### [facility] [address] [address] [address] Anthony Bonilla CO2 [Moles/Vol] 27.4 mmol/L Normal 21.0-32.0 [facility] Comment on above: Performed By: #### B MP #### [facility] [address] [place] [address] Dr. Anthony Bonilla Creatinine [Mass/Vol] 1.12 mg/dL Critically high 0.55-1.02 [facility] Comment on above: Performed By: #### B MP #### [facility] [address] [address] [address] Anthony Bonilla EGFR-AF MAURITIAN 56 mL/min/1.73m2 Critically low >=60 [facility] Comment on above: Performed By: #### B MP #### [facility] [address] [place] [address] Dr. Anthony Bonilla EGFR-NON AF MAURITIAN 46 mL/min/1.73m2 Critically low >=60 [facility] Comment on above: Performed By: #### B MP #### [facility] [address] [address] [address] Anthony Bonilla Glucose [Mass/Vol] 89 mg/dL Normal 74-106 [facility] Comment on above: Performed By: #### B MP #### [facility] [address] [address] [address] Anthony Bonilla Potassium [Moles/Vol] 4.4 mmol/L Normal 3.5-5.1 [facility] Comment on above: Performed By: #### B MP #### [facility] [address] [address] [address] Anthony Bonilla Sodium [Moles/Vol] 141 mmol/L Normal 136-145 [facility] Comment on above: Performed By: #### B MP #### [facility] [address] [place] [address] Dr. Anthony Bonilla Urea nitrogen [Mass/Vol] 18.0 mg/dL Normal 7.0-18.0 [facility] Comment on above: Performed By: #### B MP #### [facility] [address] [place] [address] Dr. Anthony Bonilla Urea nitrogen/Creatinine [Mass ratio] 16.1 mg/mg Normal [facility] Comment on above: Performed By: #### B MP #### [facility] [address] [place] [address] Dr. Anthony Bonilla CBC AUTO DIFFon 11-04-2021 BASO # 0.0 103/ul Normal 0.0-0.1 [facility] Comment on above: Performed By: #### C BC #### [facility] [address] [place] [address] Dr. Anthony Bonilla Basophils/100 WBC (Bld) 0.2 % Normal 0.2-2.0 [facility] Comment on above: Performed By: #### C BC #### [facility] [address] [place] [address] Dr. Anthony Bonilla EO # 0.1 103/ul Normal 0.0-0.7 [facility] Comment on above: Performed By: #### C BC #### [facility] [address] [place] [address] Dr. Anthony Bonilla Eosinophils/100 WBC (Bld) 0.8 % Critically low 0.9-7.0 [facility] Comment on above: Performed By: #### C BC #### [facility] [address] [place] [address] Dr. Anthony Bonilla Erythrocyte distribution width (RBC) [Ratio] 16.7 % Critically high 11.0-15.0 [facility] Comment on above: Performed By: #### C BC #### [facility] [address] [place] [address] Dr. Anthony Bonilla Hematocrit (Bld) [Volume fraction] 25.6 % Critically low 36.0-48.0 [facility] Comment on above: Performed By: #### C BC #### [facility] [address] [place] [address] Dr. Anthony Bonilla Hemoglobin (Bld) [Mass/Vol] 8.5 g/dL Critically low 12.0-16.0 [facility] Comment on above: Performed By: #### C BC #### [facility] [address] [place] [address] Dr. Anthony Bonilla IG # 0.05 10e3/ul Critically high 0.00-0.03 [facility] Comment on above: Performed By: #### C BC #### [facility] [address] [place] [address] Dr. Anthony Bonilla IG % 0.5 % Normal 0.0-0.5 [facility] Comment on above: Performed By: #### C BC #### [facility] [address] [place] [address] Dr. Anthony Bonilla LYMPH # 0.6 103/ul Critically low 1.2-3.8 [facility] Comment on above: Performed By: #### C BC #### [facility] [address] [place] [address] Dr. Anthony Bonilla Lymphocytes/100 WBC (Bld) 6.2 % Critically low 20.5-60.0 [facility] Comment on above: Performed By: #### C BC #### [facility] [address] [place] [address] Dr. Anthony Bonilla MANUAL DIFF REQ NO Normal [facility] Comment on above: Performed By: #### C BC #### [facility] [address] [place] [address] Dr. Anthony Bonilla MCH (RBC) [Entitic mass] 31.6 pg Normal 26.7-34.0 [facility] Comment on above: Performed By: #### C BC #### [facility] [address] [place] [address] Dr. Anthony Bonilla MCHC (RBC) [Mass/Vol] 33.2 g/dL Normal 29.9-35.2 [facility] Comment on above: Performed By: #### C BC #### [facility] [address] [address] [address] Anthony Bonilla MCV (RBC) [Entitic vol] 95.2 fL Normal 81.0-99.0 [facility] Comment on above: Performed By: #### C BC #### [facility] [address] [address] [address] Anthony Bonilla MONO # 0.6 103/ul Normal 0.3-0.8 [facility] Comment on above: Performed By: #### C BC #### [facility] [address] [address] [address] Anthony Bonilla Monocytes/100 WBC (Bld) 6.1 % Normal 1.7-12.0 [facility] Comment on above: Performed By: #### C BC #### [facility] [address] [place] [address] Dr. Anthony Bonilla NEUT # 8.8 103/ul Critically high 1.4-6.5 [facility] Comment on above: Performed By: #### C BC #### [facility] [address] [place] [address] Dr. Anthony Bonilla Neutrophils/100 WBC (Bld) 86.2 % Critically high 43.0-75.0 [facility] Comment on above: Performed By: #### C BC #### [facility] [address] [address] [address] Anthony Bonilla Platelet mean volume (Bld) [Entitic vol] 9.8 fL Normal 9.5-13.5 [facility] Comment on above: Performed By: #### C BC #### [facility] [address] [address] [address] Anthony Bonilla PLT 156 103/ul Normal 150-450 [facility] Comment on above: Performed By: #### C BC #### [facility] [address] [address] [address] Anthony Bonilla RBC 2.69 106/ul Critically low 4.20-5.40 [facility] Comment on above: Performed By: #### C BC #### [facility] [address] [place] [address] Dr. Anthony Bonilla WBC 10.3 103/ul Normal 4.0-11.0 [facility] Comment on above: Performed By: #### C BC #### [facility] [address] [place] [address] Dr. Anthony Bonilla CULTURE URINEon 11-04-2021 CULTURE [...] F Trimethoprim/Sulfamethoxazol e <=20 S F Normal [facility] Comment on above: Performed By: #### U RCX #### [facility] [address] [place] [address] Dr. Anthony Bonilla PROF CHEM 8 (BAS METB)on Anion gap [Moles/Vol] 12.9 mmol/L Normal [facility] Comment on above: Performed By: #### U RCX #### [facility] [address] [place] [address] Dr. Anthony Bonilla Calcium [Mass/Vol] 8.6 mg/dL Normal 8.5-10.1 [facility] Comment on above: Performed By: #### U RCX #### [facility] [address] [place] [address] Dr. Anthony Bonilla Chloride [Moles/Vol] 108 mmol/L Critically high 98-107 [facility] Comment on above: Performed By: #### U RCX #### [facility] [address] [place] [address] Dr. Anthony Bonilla CO2 [Moles/Vol] 23.1 mmol/L Normal 21.0-32.0 [facility] Comment on above: Performed By: #### U RCX #### [facility] [address] [address] [address] Anthony Bonilla Creatinine [Mass/Vol] 0.98 mg/dL Normal 0.55-1.02 [facility] Comment on above: Performed By: #### U RCX #### [facility] [address] [address] [address] Anthony Bonilla EGFR-AF MAURITIAN >60 Normal >=60 [facility] Comment on above: Performed By: #### U RCX #### [facility] [address] [address] [address] Anthony Bonilla EGFR-NON AF MAURITIAN 54 mL/min/1.73m2 Critically low >=60 [facility] Comment on above: Performed By: #### U RCX #### [facility] [address] [address] [address] Anthony Bonilla Glucose [Mass/Vol] 86 mg/dL Normal 74-106 [facility] Comment on above: Performed By: #### U RCX #### [facility] [address] [address] [address] Anthony Bonilla Potassium [Moles/Vol] 4.0 mmol/L Normal 3.5-5.1 [facility] Comment on above: Performed By: #### U RCX #### [facility] [address] [address] [address] Anthony Bonilla Sodium [Moles/Vol] 140 mmol/L Normal 136-145 [facility] Comment on above: Performed By: #### U RCX #### [facility] [address] [address] [address] Anthony Bonilla Urea nitrogen [Mass/Vol] 31.0 mg/dL Critically high 7.0-18.0 [facility] Comment on above: Performed By: #### U RCX #### [facility] [address] [address] [address] Anthony Bonilla Urea nitrogen/Creatinine [Mass ratio] 31.6 mg/mg Normal [facility] Comment on above: Performed By: #### U RCX #### [facility] [address] [place] [address] Dr. Anthony Bonilla CBC AUTO DIFFon 11-03-2021 BASO # 0.0 103/ul Normal 0.0-0.1 [facility] Comment on above: Performed By: #### C BC #### [facility] [address] [place] [address] Dr. Anthony Bonilla Basophils/100 WBC (Bld) 0.3 % Normal 0.2-2.0 [facility] Comment on above: Performed By: #### C BC #### [facility] [address] [place] [address] Dr. Anthony Bonilla EO # 0.1 103/ul Normal 0.0-0.7 [facility] Comment on above: Performed By: #### C BC #### [facility] [address] [place] [address] Dr. Anthony Bonilla Eosinophils/100 WBC (Bld) 0.6 % Critically low 0.9-7.0 [facility] Comment on above: Performed By: #### C BC #### [facility] [address] [place] [address] Dr. Anthony Bonilla Erythrocyte distribution width (RBC) [Ratio] 14.0 % Normal 11.0-15.0 [facility] Comment on above: Performed By: #### C BC #### [facility] [address] [place] [address] Dr. Anthony Bonilla Hematocrit (Bld) [Volume fraction] 23.1 % Critically low 36.0-48.0 [facility] Comment on above: Result Comment: Flui ds given Performed By: #### C BC #### [facility] [address] [place] [address] Dr. Anthony Bonilla Hemoglobin (Bld) [Mass/Vol] 7.6 g/dL Critically low 12.0-16.0 [facility] Comment on above: Performed By: #### C BC #### [facility] [address] [address] [address] Anthony Bonilla IG # 0.07 10e3/ul Critically high 0.00-0.03 [facility] Comment on above: Performed By: #### C BC #### [facility] [address] [place] [address] Dr. Anthony Bonilla IG % 0.6 % Critically high 0.0-0.5 [facility] Comment on above: Performed By: #### C BC #### [facility] [address] [place] [address] Dr. Anthony Bonilla LYMPH # 0.7 103/ul Critically low 1.2-3.8 [facility] Comment on above: Performed By: #### C BC #### [facility] [address] [place] [address] Dr. Anthony Bonilla Lymphocytes/100 WBC (Bld) 5.7 % Critically low 20.5-60.0 [facility] Comment on above: Performed By: #### C BC #### [facility] [address] [place] [address] Dr. Anthony Bonilla MANUAL DIFF REQ NO Normal [facility] Comment on above: Performed By: #### C BC #### [facility] [address] [place] [address] Dr. Anthony Bonilla MCH (RBC) [Entitic mass] 32.6 pg Normal 26.7-34.0 [facility] Comment on above: Performed By: #### C BC #### [facility] [address] [place] [address] Dr. Anthony Bonilla MCHC (RBC) [Mass/Vol] 32.9 g/dL Normal 29.9-35.2 [facility] Comment on above: Performed By: #### C BC #### [facility] [address] [place] [address] Dr. Anthony Bonilla MCV (RBC) [Entitic vol] 99.1 fL Critically high 81.0-99.0 [facility] Comment on above: Performed By: #### C BC #### [facility] [address] [place] [address] Dr. Anthony Bonilla MONO # 0.8 103/ul Normal 0.3-0.8 [facility] Comment on above: Performed By: #### C BC #### [facility] [address] [place] [address] Dr. Anthony Bonilla Monocytes/100 WBC (Bld) 6.8 % Normal 1.7-12.0 [facility] Comment on above: Performed By: #### C BC #### [facility] [address] [place] [address] Dr. Anthony Bonilla NEUT # 9.8 103/ul Critically high 1.4-6.[address] [facility] Comment on above: Performed By: #### C BC #### [facility] [address] [place] [address] Dr. Anthony Bonilla Neutrophils/100 WBC (Bld) 86.0 % Critically high 43.0-75.0 [facility] Comment on above: Performed By: #### C BC #### [facility] [address] [place] [address] Dr. Anthony Bonilla Platelet mean volume (Bld) [Entitic vol] 9.5 fL Normal 9.5-13.5 [facility] Comment on above: Performed By: #### C BC #### [facility] [address] [place] [address] Dr. Anthony Bonilla PLT 160 103/ul Normal 150-450 [facility] Comment on above: Performed By: #### C BC #### [facility] [address] [place] [address] Dr. Anthony Bonilla RBC 2.33 106/ul Critically low 4.20-5.[address] [facility] Comment on above: Performed By: #### C BC #### [facility] [address] [place] [address] Dr. Anthony Bonilla WBC 11.4 103/ul Critically high 4.0-11.0 [facility] Comment on above: Performed By: #### C BC #### [facility] [address] [place] [address] Dr. Anthony Bonilla HEMOGLOBIN AND HEMATOCRITon 11-03-2021 Hematocrit (Bld) [Volume fraction] 27.0 % Critically low 36.0-48.0 [facility] Comment on above: Performed By: #### U RCX #### [facility] [address] [place] [address] Dr. Anthony Bonilla Hemoglobin (Bld) [Mass/Vol] 9.1 g/dL Critically low 12.0-16.0 [facility] Comment on above: Performed By: #### U RCX #### [facility] [address] [place] [address] Dr. Anthony Bonilla OCC BLD IMMUNO SCREENon 10-10 OCCULT BLOOD Positive Abnormal NEGATIVE [facility] Comment on above: Performed By: #### C BC #### [facility] [address] [place] [address] Dr. Anthony Bonilla PROF CHEM 8 (BAS METB)on Anion gap [Moles/Vol] 10.7 mmol/L Normal [facility] Comment on above: Performed By: #### C BC #### [facility] [address] [place] [address] Dr. Anthony Bonilla Calcium [Mass/Vol] 8.6 mg/dL Normal 8.5-10.1 [facility] Comment on above: Performed By: #### C BC #### [facility] [address] [place] [address] Dr. Anthony Bonilla Chloride [Moles/Vol] 107 mmol/L Normal 98-107 [facility] Comment on above: Performed By: #### C BC #### [facility] [address] [place] [address] Dr. Anthony Bonilla CO2 [Moles/Vol] 24.4 mmol/L Normal 21.0-32.0 [facility] Comment on above: Performed By: #### C BC #### [facility] [address] [place] [address] Dr. Anthony Bonilla Creatinine [Mass/Vol] 0.98 mg/dL Normal 0.55-1.02 [facility] Comment on above: Performed By: #### C BC #### [facility] [address] [address] [address] Anthony Bonilla EGFR-AF MAURITIAN >60 Normal >=60 [facility] Comment on above: Performed By: #### C BC #### [facility] [address] [address] [address] Anthony Bonilla EGFR-NON AF MAURITIAN 54 mL/min/1.73m2 Critically low >=60 [facility] Comment on above: Performed By: #### C BC #### [facility] [address] [address] [address] Anthony Bonilla Glucose [Mass/Vol] 98 mg/dL Normal 74-106 [facility] Comment on above: Performed By: #### C BC #### [facility] [address] [address] [address] Anthony Bonilla Potassium [Moles/Vol] 4.1 mmol/L Normal 3.5-5.1 [facility] Comment on above: Performed By: #### C BC #### [facility] [address] [address] [address] Anthony Bonilla Sodium [Moles/Vol] 138 mmol/L Normal 136-145 [facility] Comment on above: Performed By: #### C BC #### [facility] [address] [address] [address] Anthony Bonilla Urea nitrogen [Mass/Vol] 43.0 mg/dL Critically high 7.0-18.0 [facility] Comment on above: Performed By: #### C BC #### [facility] [address] [address] [address] Anthony Bonilla Urea nitrogen/Creatinine [Mass ratio] 43.9 mg/mg Normal [facility] Comment on above: Performed By: #### C BC #### [facility] [address] [address] [address] Anthony Bonilla TYPE AND SCREENon 11-03-2021 TYPE AND SCREEN Negative Normal [facility] Comment on above: Performed By: #### C BC #### [facility] [address] [address] [address] Anthony Bonilla CBC AUTO DIFFon 11-02-2021 BASO # 0.0 103/ul Normal 0.0-0.1 [facility] Comment on above: Performed By: #### U RCX #### [facility] [address] [place] [address] Dr. Anthony Bonilla Basophils/100 WBC (Bld) 0.3 % Normal 0.2-2.0 [facility] Comment on above: Performed By: #### U RCX #### [facility] [address] [address] [address] Anthony Bonilla EO # 0.0 103/ul Normal 0.0-0.7 [facility] Comment on above: Performed By: #### U RCX #### [facility] [address] [place] [address] Dr. Anthony Bonilla Eosinophils/100 WBC (Bld) 0.1 % Critically low 0.9-7.0 [facility] Comment on above: Performed By: #### U RCX #### [facility] [address] [place] [address] Dr. Anthony Bonilla Erythrocyte distribution width (RBC) [Ratio] 13.9 % Normal 11.0-15.0 [facility] Comment on above: Performed By: #### U RCX #### [facility] [address] [place] [address] Dr. Anthony Bonilla Hematocrit (Bld) [Volume fraction] 31.8 % Critically low 36.0-48.0 [facility] Comment on above: Performed By: #### U RCX #### [facility] [address] [place] [address] Dr. Anthony Bonilla Hemoglobin (Bld) [Mass/Vol] 10.5 g/dL Critically low 12.0-16.0 [facility] Comment on above: Performed By: #### U RCX #### [facility] [address] [place] [address] Dr. Anthony Bonilla IG # 0.07 10e3/ul Critically high 0.00-0.03 [facility] Comment on above: Performed By: #### U RCX #### [facility] [address] [address] [address] Anthony Bonilla IG % 0.5 % Normal 0.0-0.5 [facility] Comment on above: Performed By: #### U RCX #### [facility] [address] [address] [address] Anthony Bonilla LYMPH # 0.9 103/ul Critically low 1.2-3.8 [facility] Comment on above: Performed By: #### U RCX #### [facility] [address] [address] [address] Anthony Bonilla Lymphocytes/100 WBC (Bld) 6.1 % Critically low 20.5-60.0 [facility] Comment on above: Performed By: #### U RCX #### [facility] [address] [place] [address] Dr. Anthony Bonilla MANUAL DIFF REQ NO Normal [facility] Comment on above: Performed By: #### U RCX #### [facility] [address] [address] [address] Anthony Bonilla MCH (RBC) [Entitic mass] 32.7 pg Normal 26.7-34.0 [facility] Comment on above: Performed By: #### U RCX #### [facility] [address] [place] [address] Dr. Anthony Bonilla MCHC (RBC) [Mass/Vol] 33.0 g/dL Normal 29.9-35.2 [facility] Comment on above: Performed By: #### U RCX #### [facility] [address] [place] [address] Dr. Anthony Bonilla MCV (RBC) [Entitic vol] 99.1 fL Critically high 81.0-99.0 [facility] Comment on above: Performed By: #### U RCX #### [facility] [address] [address] [address] Anthony Bonilla MONO # 1.0 103/ul Critically high 0.3-0.[address] [facility] Comment on above: Performed By: #### U RCX #### [facility] [address] [address] [address] Anthony Bonilla Monocytes/100 WBC (Bld) 6.8 % Normal 1.7-12.0 [facility] Comment on above: Performed By: #### U RCX #### [facility] [address] [place] [address] Dr. Anthony Bonilla NEUT # 12.1 103/ul Critically high 1.4-6.5 [facility] Comment on above: Performed By: #### U RCX #### [facility] [address] [place] [address] Dr. Anthony Bonilla Neutrophils/100 WBC (Bld) 86.2 % Critically high 43.0-75.0 [facility] Comment on above: Performed By: #### U RCX #### [facility] [address] [place] [address] Dr. Anthony Bonilla Platelet mean volume (Bld) [Entitic vol] 9.8 fL Normal 9.5-13.5 [facility] Comment on above: Performed By: #### U RCX #### [facility] [address] [place] [address] Dr. Anthony Bonilla PLT 175 103/ul Normal 150-450 [facility] Comment on above: Performed By: #### U RCX #### [facility] [address] [place] [address] Dr. Anthony Bonilla RBC 3.21 106/ul Critically low 4.20-5.[address] [facility] Comment on above: Performed By: #### U RCX #### [facility] [address] [place] [address] Dr. Anthony Bonilla WBC 14.0 103/ul Critically high 4.0-11.0 [facility] Comment on above: Performed By: #### U RCX #### [facility] [address] [place] [address] HEAD WO CONon [...] HERNANDO HAMLIN Date: 2021-11-01 22:36 Normal [facility] PROF CHEM 8 (BAS METB)on Anion gap [Moles/Vol] 12.2 mmol/L Normal [facility] Comment on above: Performed By: #### C BC #### [facility] [address] [address] [address] Anthony Bonilla Calcium [Mass/Vol] 8.7 mg/dL Normal 8.5-10.1 [facility] Comment on above: Performed By: #### C BC #### [facility] [address] [address] [address] Anthony Bonilla Chloride [Moles/Vol] 103 mmol/L Normal 98-107 [facility] Comment on above: Performed By: #### C BC #### [facility] [address] [address] [address] Anthony Bonilla CO2 [Moles/Vol] 25.7 mmol/L Normal 21.0-32.0 [facility] Comment on above: Performed By: #### C BC #### [facility] [address] [address] [address] Anthony Bonilla Creatinine [Mass/Vol] 1.08 mg/dL Critically high 0.55-1.02 [facility] Comment on above: Performed By: #### C BC #### [facility] [address] [address] [address] Anthony Bonilla EGFR-AF MAURITIAN 58 mL/min/1.73m2 Critically low >=60 [facility] Comment on above: Performed By: #### C BC #### [facility] [address] [address] [address] Anthony Bonilla EGFR-NON AF MAURITIAN 48 mL/min/1.73m2 Critically low >=60 [facility] Comment on above: Performed By: #### C BC #### [facility] [address] [address] [address] Anthony Bonilla Glucose [Mass/Vol] 84 mg/dL Normal 74-106 [facility] Comment on above: Performed By: #### C BC #### [facility] [address] [address] [address] Anthony Bonilla Potassium [Moles/Vol] 4.9 mmol/L Normal 3.5-5.1 [facility] Comment on above: Performed By: #### C BC #### [facility] [address] [address] [address] Anthony Bonilla Sodium [Moles/Vol] 136 mmol/L Normal 136-145 [facility] Comment on above: Performed By: #### C BC #### [facility] [address] [address] [address] Anthony Bonilla Urea nitrogen [Mass/Vol] 33.0 mg/dL Critically high 7.0-18.0 [facility] Comment on above: Performed By: #### C BC #### [facility] [address] [address] [address] Anthony Bonilla Urea nitrogen/Creatinine [Mass ratio] 30.6 mg/mg Normal [facility] Comment on above: Performed By: #### C BC #### [facility] [address] [address] [address] Anthony Bonilla XR CHEST 1 Von [...] GIANA HOLLY Date: 2021-11-01 22:05 Normal [facility] CARDIAC DARWIN ADMITon 022 CK [Catalytic activity/Vol] 92 U/L Normal 26-192 [facility] Comment on above: Performed By: #### C BC #### [facility] [address] [place] [address] Dr. Anthony Bonilla CK.MB [Mass/Vol] 1.73 ng/mL Normal <=3.60 [facility] Comment on above: Performed By: #### C BC #### [facility] [address] [place] [address] Dr. Anthony Bonilla HSTROP 20.0 pg/mL Normal 4.0-51.3 [facility] Comment on above: Result Comment: CUT- OFF POINTS HAVE BEEN ESTABLISHED BASED ON THE FOURTH UNIVERSAL DEFINITIONS OF MYOCARDIAL INFARCTION. THE UPPER REFERENCE LIMIT (URL) OF TROPONIN, DEFINED THE 99TH PERCENTILE OF cTnI DISTRIBUTION IN A REFERENCE POPULATION, HAS BEEN CONFIRMED THE DECISION THRESHOLD FOR TN DIAGNOSIS. Performed By: #### C BC #### [facility] [address] [place] [address] Dr. Anthony Bonilla CANDIDA 58 ng/mL Normal 9-82 [facility] Comment on above: Performed By: #### C BC #### [facility] [address] [place] [address] Dr. Anthony Bonilla CBC AUTO DIFFon 11-01-2021 BASO # 0.0 103/ul Normal 0.0-0.1 [facility] Comment on above: Performed By: #### U RCX #### [facility] [address] [place] [address] Dr. Anthony Bonilla Basophils/100 WBC (Bld) 0.2 % Normal 0.2-2.0 [facility] Comment on above: Performed By: #### U RCX #### [facility] [address] [place] [address] Dr. Anthony Bonilla EO # 0.0 103/ul Normal 0.0-0.7 [facility] Comment on above: Performed By: #### U RCX #### [facility] [address] [address] [address] Anthony Bonilla Eosinophils/100 WBC (Bld) 0.0 % Critically low 0.9-7.0 [facility] Comment on above: Performed By: #### U RCX #### [facility] [address] [address] [address] Anthony Bonilla Erythrocyte distribution width (RBC) [Ratio] 14.1 % Normal 11.0-15.0 [facility] Comment on above: Performed By: #### U RCX #### [facility] [address] [place] [address] Dr. Anthony Bonilla Hematocrit (Bld) [Volume fraction] 36.0 % Normal 36.0-48.0 [facility] Comment on above: Performed By: #### U RCX #### [facility] [address] [place] [address] Dr. Anthony Bonilla Hemoglobin (Bld) [Mass/Vol] 12.1 g/dL Normal 12.0-16.0 [facility] Comment on above: Performed By: #### U RCX #### [facility] [address] [address] [address] Anthony Bonilla IG # 0.11 10e3/ul Critically high 0.00-0.03 [facility] Comment on above: Performed By: #### U RCX #### [facility] [address] [place] [address] Dr. Anthony Bonilla IG % 0.5 % Normal 0.0-0.5 [facility] Comment on above: Performed By: #### U RCX #### [facility] [address] [place] [address] Dr. Anthony Bonilla LYMPH # 0.7 103/ul Critically low 1.2-3.8 [facility] Comment on above: Performed By: #### U RCX #### [facility] [address] [place] [address] Dr. Anthony Bonilla Lymphocytes/100 WBC (Bld) 3.2 % Critically low 20.5-60.0 [facility] Comment on above: Performed By: #### U RCX #### [facility] [address] [place] [address] Dr. Anthony Bonilla MANUAL DIFF REQ NO Normal [facility] Comment on above: Performed By: #### U RCX #### [facility] [address] [place] [address] Dr. Anthony Bonilla MCH (RBC) [Entitic mass] 33.0 pg Normal 26.7-34.0 [facility] Comment on above: Performed By: #### U RCX #### [facility] [address] [place] [address] Dr. Anthony Bonilla MCHC (RBC) [Mass/Vol] 33.6 g/dL Normal 29.9-35.2 [facility] Comment on above: Performed By: #### U RCX #### [facility] [address] [place] [address] Dr. Anthony Bonilla MCV (RBC) [Entitic vol] 98.1 fL Normal 81.0-99.0 [facility] Comment on above: Performed By: #### U RCX #### [facility] [address] [place] [address] Dr. Anthony Bonilla MONO # 1.1 103/ul Critically high 0.3-0.[address] [facility] Comment on above: Performed By: #### U RCX #### [facility] [address] [place] [address] Dr. Anthony Bonilla Monocytes/100 WBC (Bld) 4.8 % Normal 1.7-12.0 [facility] Comment on above: Performed By: #### U RCX #### [facility] [address] [place] [address] Dr. Anthony Bonilla NEUT # 20.3 103/ul Critically high 1.4-6.5 [facility] Comment on above: Performed By: #### U RCX #### [facility] [address] [place] [address] Dr. Anthony Bonilla Neutrophils/100 WBC (Bld) 91.3 % Critically high 43.0-75.0 [facility] Comment on above: Performed By: #### U RCX #### [facility] [address] [place] [address] Dr. Anthony Bonilla Platelet mean volume (Bld) [Entitic vol] 10.8 fL Normal 9.5-13.5 [facility] Comment on above: Performed By: #### U RCX #### [facility] [address] [place] [address] Dr. Anthony Bonilla PLT 179 103/ul Normal 150-450 [facility] Comment on above: Performed By: #### U RCX #### [facility] [address] [place] [address] Dr. Anthony Bonilla RBC 3.67 106/ul Critically low 4.20-5.40 [facility] Comment on above: Performed By: #### U RCX #### [facility] [address] [place] [address] Dr. Anthony Bonilla WBC 22.2 103/ul Critically high 4.0-11.0 [facility] Comment on above: Performed By: #### U RCX #### [facility] [address] [place] [address] Dr. Anthony Bonilla CULTURE BLOODon 11-01-2021 Microscopic examination of blood, culture Culture Observations: NO GROWTH AT 5 DAYS. Normal [facility] Comment on above: Performed By: #### B LDCX2 #### [facility] [address] [place] [address] Dr. Anthony Bonilla Performed By: #### C BC #### [facility] [address] [place] [address] Dr. Anthony Bonilla Covid-19 PCR (CVDTBH)on 10-10 SARS-CoV-2 (COVID-19) RNA OH+probe Ql (Unsp spec) Detected Critically abnormal NOT DETECTED [facility] Comment on above: Result Comment: This test is not yet approved or cleared by the [place] FDA. When there are no FDA-approved or cleared tests available, and other criteria are met, FDA can make tests available under an emergency access mechanism called an Emergency Use Authorization (EUA). The EUA for this test is supported by the [place] of Health and Human Service's declaration that [...] used). Performed By: #### C BC #### [facility] [address] [place] [address] Dr. Anthony Bonilla ER URINE PROFILEon 2 Bilirubin Ql (U) Negative Normal NEGATIVE [facility] Comment on above: Performed By: #### U RCX #### [facility] [address] [place] [address] Dr. Anthony Bonilla Clarity (U) CLEAR Normal CLEAR [facility] Comment on above: Performed By: #### U RCX #### [facility] [address] [place] [address] Dr. Anthony Bonilla Color (U) LT. YELLOW Normal YELLOW [facility] Comment on above: Performed By: #### U RCX #### [facility] [address] [place] [address] Dr. Anthony Bonilla ERUAHD A micrscopic examina tion will be performed if indicated. Normal [facility] Comment on above: Performed By: #### U RCX #### [facility] [address] [place] [address] Dr. Anthony Bonilla Glucose Ql (U) Negative Normal NEGATIVE [facility] Comment on above: Performed By: #### U RCX #### [facility] [address] [place] [address] Dr. Anthony Bonilla Hemoglobin Ql (U) TRACE-INTACT Abnormal NEGATIVE [facility] Comment on above: Performed By: #### U RCX #### [facility] [address] [place] [address] Dr. Anthony Bonilla Ketones Ql (U) Negative Normal NEGATIVE [facility] Comment on above: Performed By: #### U RCX #### [facility] [address] [place] [address] Dr. Anthony Bonilla LEUKOCYTES Negative Normal NEGATIVE [facility] Comment on above: Performed By: #### U RCX #### [facility] [address] [address] [address] Anthony Bonilla Nitrite Ql (U) Negative Normal NEGATIVE [facility] Comment on above: Performed By: #### U RCX #### [facility] [address] [address] [address] Anthony Bonilla pH (U) 6.0 [pH] Normal 5-9 [facility] Comment on above: Performed By: #### U RCX #### [facility] [address] [place] [address] Dr. Anthony Bonilla SPEC GRAVITY 1.020 Normal 1.005-<=1. 025 [facility] Comment on above: Performed By: #### U RCX #### [facility] [address] [place] [address] Dr. Anthony Bonilla UA PROTEIN Negative Normal NEGATIVE/ TRACE [facility] Comment on above: Performed By: #### U RCX #### [facility] [address] [place] [address] Dr. Anthony Bonilla UR MICRO IND INDICATED Normal [facility] Comment on above: Performed By: #### U RCX #### [facility] [address] [place] [address] Dr. Anthony Bonilla Urobilinogen Qn (U) 1.0 {Gen'U}/dL Normal 0.2 - 1. 0 [facility] Comment on above: Performed By: #### U RCX #### [facility] [address] [place] [address] Dr. Anthony Bonilla LACTATE/LACTIC ACIDon 2021 Lactate [Moles/Vol] 1.6 mmol/L Normal 0.4-1.[address] [facility] Comment on above: Performed By: #### C BC #### [facility] [address] [place] [address] Dr. Anthony Bonilla PROF 14(COMP METB)on 022 Albumin [Mass/Vol] 3.2 g/dL Critically low 3.4-5.0 [facility] Comment on above: Performed By: #### C BC #### [facility] [address] [place] [address] Dr. Anthony Bonilla Albumin/Globulin [Mass ratio] 0.9 {ratio} Normal [facility] Comment on above: Performed By: #### C BC #### [facility] [address] [address] [address] Anthony Bonilla ALP [Catalytic activity/Vol] 26 U/L Critically low 46-116 [facility] Comment on above: Performed By: #### C BC #### [facility] [address] [address] [address] Anthony Bonilla ALT [Catalytic activity/Vol] 32 U/L Normal 14-59 [facility] Comment on above: Performed By: #### C BC #### [facility] [address] [place] [address] Dr. Anthony Bonilla Anion gap [Moles/Vol] 11.5 mmol/L Normal [facility] Comment on above: Performed By: #### C BC #### [facility] [address] [place] [address] Dr. Anthony Bonilla AST [Catalytic activity/Vol] 16 U/L Normal 15-37 [facility] Comment on above: Performed By: #### C BC #### [facility] [address] [place] [address] Dr. Anthony Bonilla Bilirubin [Mass/Vol] 1.2 mg/dL Critically high 0.2-1.0 [facility] Comment on above: Performed By: #### C BC #### [facility] [address] [place] [address] Dr. Anthony Bonilla Calcium [Mass/Vol] 9.0 mg/dL Normal 8.5-10.1 [facility] Comment on above: Performed By: #### C BC #### [facility] [address] [address] [address] Anthony Bonilla Chloride [Moles/Vol] 102 mmol/L Normal 98-107 [facility] Comment on above: Performed By: #### C BC #### [facility] [address] [address] [address] Anthony Bonilla CO2 [Moles/Vol] 25.2 mmol/L Normal 21.0-32.0 [facility] Comment on above: Performed By: #### C BC #### [facility] [address] [address] [address] Anthony Bonilla Creatinine [Mass/Vol] 1.25 mg/dL Critically high 0.55-1.02 [facility] Comment on above: Performed By: #### C BC #### [facility] [address] [address] [address] Anthony Bonilla EGFR-AF MAURITIAN 49 mL/min/1.73m2 Critically low >=60 [facility] Comment on above: Performed By: #### C BC #### [facility] [address] [place] [address] Dr. Anthony Bonilla EGFR-NON AF MAURITIAN 41 mL/min/1.73m2 Critically low >=60 [facility] Comment on above: Performed By: #### C BC #### [facility] [address] [address] [address] Anthony Bonilla Globulin (S) [Mass/Vol] 3.4 g/dL Normal [facility] Comment on above: Performed By: #### C BC #### [facility] [address] [place] [address] Dr. Anthony Bonilla Glucose [Mass/Vol] 102 mg/dL Normal 74-106 [facility] Comment on above: Performed By: #### C BC #### [facility] [address] [address] [address] Anthony Bonilla Potassium [Moles/Vol] 4.7 mmol/L Normal 3.5-5.1 [facility] Comment on above: Performed By: #### C BC #### [facility] [address] [address] [address] Anthony Bonilla Protein [Mass/Vol] 6.6 g/dL Normal 6.4-8.2 [facility] Comment on above: Performed By: #### C BC #### [facility] [address] [place] [address] Dr. Anthony Bonilla Sodium [Moles/Vol] 134 mmol/L Critically low 136-145 [facility] Comment on above: Performed By: #### C BC #### [facility] [address] [place] [address] Dr. Anthony Bonilla Urea nitrogen [Mass/Vol] 33.0 mg/dL Critically high 7.0-18.0 [facility] Comment on above: Performed By: #### C BC #### [facility] [address] [place] [address] Dr. Anthony Bonilla Urea nitrogen/Creatinine [Mass ratio] 26.4 mg/mg Normal [facility] Comment on above: Performed By: #### C BC #### [facility] [address] [place] [address] Dr. Anthony Bonilla PROTIMEon 11-01-2021 INR Coag (PPP) [Relative time] 0.97 {INR} Normal [facility] Comment on above: Performed By: #### U RCX #### [facility] [address] [place] [address] Dr. Anthony Bonilla INR GUIDELINES SEE BELOW Normal [facility] Comment on above: Result Comment: MEGAN RED INR: 2.0 - 3.0 CONDITIONS NOT LISTED BELOW 2.5 - 3.5 FOR PROSTHETIC HEART VALVE REPLACEMENT 2.5 - 3.5 RECURRENT THROMBOSIS Performed By: #### U RCX #### [facility] [address] [place] [address] Dr. Anthony Bonilla PT Coag (PPP) [Time] 10.5 s Normal 9.0-11.6 [facility] Comment on above: Performed By: #### U RCX #### [facility] [address] [place] [address] Dr. Anthony Bonilla PTTon 11-01-2021 aPTT Coag (Bld) [Time] 27.8 s Normal 22.3-36.2 [facility] Comment on above: Performed By: #### U RCX #### [facility] [address] [place] [address] Dr. Anthony Bonilla TSHon 11-01-2021 TSH 1.011 uIU/mL Normal 0.358-3.74 0 [facility] Comment on above: Performed By: #### C BC #### [facility] [address] [place] [address] Dr. Anthony Bonilla URINE MICROSCOPIC ONLYon BACTERIA LARGE Abnormal NONE SEEN [facility] Comment on above: Performed By: #### U RCX #### [facility] [address] [place] [address] Dr. Anthony Bonilla Bacteria identified Cx Nom (U) INDICATED Normal [facility] Comment on above: Performed By: #### U RCX #### [facility] [address] [place] [address] Dr. Anthony Bonilla CAST NONE SEEN Normal NONE SEEN [facility] Comment on above: Performed By: #### U RCX #### [facility] [address] [place] [address] Dr. Anthony Bonilla Crystals LM Nom (Urine sed) NONE SEEN Normal NONE SEEN [facility] Comment on above: Performed By: #### U RCX #### [facility] [address] [place] [address] Dr. Anthony Bonilla Epithelial cells LM Ql (Urine sed) FEW Abnormal NONE SEEN /RARE [facility] Comment on above: Performed By: #### U RCX #### [facility] [address] [place] [address] Dr. Anthony Bonilla MUCOUS NONE SEEN Normal NONE SEEN [facility] Comment on above: Performed By: #### U RCX #### [facility] [address] [place] [address] Dr. Anthony Bonilla RBC 2-5 Abnormal 0-2 [facility] Comment on above: Performed By: #### U RCX #### [facility] [address] [place] [address] Dr. Anthony Bonilla WBC 0-2 Abnormal NONE SEEN [facility] Comment on above: Performed By: #### U RCX #### [facility] [address] [place] [address] Dr. Anthony Bonilla Covid-19 PCR (CVDTBH)on SARS-CoV-2 (COVID-19) RNA OH+probe Ql (Unsp spec) Detected Critically abnormal NOT DETECTED [facility] Comment on above: Result Comment: This test is not yet approved or cleared by the [place] FDA. When there are no FDA-approved or cleared tests available, and other criteria are met, FDA can make tests available under an emergency access mechanism called an Emergency Use Authorization (EUA). The EUA for this test is supported by the Retail Pharmacy Merchandiser of Health and Human Service's declaration that [...] used). Performed By: #### C BC #### [facility] [address] [place] [address] Dr. Anthony Bonilla Covid-19 PCR (CVDTBH)on SARS-CoV-2 (COVID-19) RNA OH+probe Ql (Unsp spec) Not detected Normal NOT DETECTED [facility] Comment on above: Result Comment: This test is not yet approved or cleared by the [place] FDA. When there are no FDA-approved or cleared tests available, and other criteria are met, FDA can make tests available under an emergency access mechanism called an Emergency Use Authorization (EUA). The EUA for this test is supported by the Retail Pharmacy Merchandiser of Health and Human Service's (HHS's) declaration [...] SARS-CoV-2. Performed By: #### U RCX #### [facility] [address] [address] [address] 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 Any time this information is not complete, it is the finisher plate?s responsibility to query the physician. Based on [...] timely attention to this matter. Ambar Manley Resource Efficiency Manager Ext [phone] [Electronically Signed on: 10/18/2019 21:40 EDT] Mi Licea DO [Verified on: 10/18/2019 21:40 EDT] Mi Licea DO [Transcribed on: 10/02/2019 11:06 EDT] [facility] Consent Formson 09-29-2019 Consent Forms [id number]#1.00[facility] Medication Managementon 09-09 Medication Management [id number]#1.00[facility] Outside Recordson 09-29-2019 Outside Records [id number]#1.00[facility] Outside Records [id number]#1.00[facility] Provider Orderson 09-29-2019 Provider Orders [id number]#1.00[facility] Telemetry Stripson 0 Telemetry Strips [id number]#1.00[facility] .Auto Diff 1on 2019 Auto [place]alli % 11 % Normal 1-12 [facility] Comment on above: Performed By: #### 1 [id number], [id number], [id number] #### [facility] (DEFAULT) [address] [place] [address] Baso Abs# 0.0 x10 Normal 0.0-0.2 [facility] Comment on above: Performed By: #### 1 [id number], [id number], [id number] #### [facility] (DEFAULT) [address] [place] [address] 05072 Basophils/100 WBC (Bld) 0.1 % Low 0.2-2.0 [facility] Comment on above: Performed By: #### 1 [id number], 60897381, 7769178 #### [facility] (DEFAULT) [address] [place] [address] 22096 Eos Abs# 0.2 x10 Normal 0.0-0.4 [facility] Comment on above: Performed By: #### 1 [id number], [id number], 7837252 #### [facility] (DEFAULT) [address] [place] [address] 94570 Eosinophils/100 WBC (Bld) 2.2 % Normal 0.9-4.0 [facility] Comment on above: Performed By: #### 1 [id number], 46858949, 1550223 #### [facility] (DEFAULT) [address] [place] [address] 73553 Lymphocytes (Bld) [#/Vol] 0.6 x10 Low 1.3-2.9 [facility] Comment on above: Performed By: #### 1 [id number], 80658826, 5198155 #### [facility] (DEFAULT) [address] [place] [address] 94600 Lymphocytes/100 WBC (Bld) 6 % Low 14-48 [facility] Comment on above: Performed By: #### 1 [id number], 33310881, 1051220 #### [facility] (DEFAULT) [address] [place] [address] 09254 Ravalli Abs# 1.0 x10 High 0.0-0.8 [facility] Comment on above: Performed By: #### 1 [id number], 60228701, [id number] #### [facility] (DEFAULT) [address] [place] [address] Neut Abs# 7.2 x10 Normal 1.5-9.2 [facility] Comment on above: Performed By: #### 1 [id number], [id number], 5656721 #### [facility] (DEFAULT) [address] [place] [address] Neutrophils/100 WBC (Bld) 80 % Normal 44-88 [facility] Comment on above: Performed By: #### 1 [id number], 11226666, 5701071 #### [facility] (DEFAULT) [address] [place] [address] CBC w/ Auto Diffon 0 Erythrocyte distribution width (RBC) [Ratio] 14.4 % Normal 11.5-15.0 [facility] Comment on above: Performed By: #### 1 [id number], 42033174, 6332554 #### [facility] (DEFAULT) [address] [place] [address] Hematocrit (Bld) [Volume fraction] 36.2 % Normal 33.7-40.4 [facility] Comment on above: Performed By: #### 1 [id number], 17051443, 0650119 #### [facility] (DEFAULT) [address] [place] [address] Hemoglobin (Bld) [Mass/Vol] 11.9 g/dL Normal 11.3-15.9 [facility] Comment on above: Performed By: #### 1 [id number], 61765028, 6570581 #### [facility] (DEFAULT) [address] [place] [address] Man Diff? Auto Normal [facility] Comment on above: Performed By: #### 1 [id number], 29953722, 7030648 #### [facility] (DEFAULT) [address] [place] [address] MCH (RBC) [Entitic mass] 33 pg Normal 24-34 [facility] Comment on above: Performed By: #### 1 [id number], 35046139, 1204788 #### [facility] (DEFAULT) [address] [place] [address] 35545 MCHC (RBC) [Mass/Vol] 33 g/dL Normal 26-37 [facility] Comment on above: Performed By: #### 1 [id number], 98319641, 8154229 #### [facility] (DEFAULT) [address] [place] [address] 41406 MCV (RBC) [Entitic vol] 100 fL Normal 81-100 [facility] Comment on above: Performed By: #### 1 [id number], 45161787, 0086226 #### [facility] (DEFAULT) [address] [place] [address] 96646 Platelet mean volume (Bld) [Entitic vol] 9.6 fL Normal 6.3-10.2 [facility] Comment on above: Performed By: #### 1 [id number], 96572841, 8797477 #### [facility] (DEFAULT) [address] [place] [address] 47564 Platelets (Bld) [#/Vol] 286 x10 Normal 138-427 [facility] Comment on above: Performed By: #### 1 [id number], 95621133, 6518224 #### [facility] (DEFAULT) [address] [place] [address] 70489 RBC (Bld) [#/Vol] 3.61 x10 Low 3.70-5.30 [facility] Comment on above: Performed By: #### 1 [id number], 07056318, 8826256 #### [facility] (DEFAULT) [address] [place] [address] 97117 WBC (Bld) [#/Vol] 9.0 x10 [facility] Comment on above: Performed By: #### 1 [id number], 27520390, 3527832 #### [facility] (DEFAULT) [address] [place] [address] Education Noteon 2019 Education Note Education Materials [...] done to rule of a DVT. Normal [facility] Extra Greenon 2019 Tube Collected Yes [facility] Comment on above: Performed By: #### 1 [id number], [id number], [id number] #### [facility] (DEFAULT) [address] [place] [address] Inpatient Patient Summaryon 2019 Inpatient Patient Summary [address] [address] Patient Discharge Instructions Name: DELICIA HSU : 1935 Patient Address: [address] [place] [address] Primary Care Provider: Name: Gypsy Mcmahon MD After you are discharged if you find you have any questions, please, call [phone] ext [phone] to speak to a nurse. Discharge Diagnosis: Primary localized osteoarthritis of left hip Prescription Information: If you have been given a prescription for narcotics, seek immediate medical attention if you have any difficulty breathing or any sudden status changes such as confusion and sleepiness. If you or anyone you know is experiencing suicidal thoughts, mental health, alcohol and/or drug addiction problems; contact the [facility] 31/08 Crisis Hotline -Text 4HNNZ vf 555758. If you received any narcotics, sedation, or [...] business decisions or sign any legal documents [facility] would like to thank you for allowing us to assist you with your healthcare needs. The following includes patient education materials and information regarding your injury/illness. DELICIA HSU has been given the following list of follow-up instructions, prescriptions, and patient education materials: Follow-up Instructions With: Address: When: Mi Licea [address] [place] [address], [address] [place] [address] Business (2) 10/03/2019 8:30 AM With: Address: When: Gypsy Mcmahon [address] [place] [address], [place] [address] Business (1) Medications During the course of [...] Disease Control and Prevention October 2013 [facility] Progress Note - Nurseon 09-09 MCH [...] 2019 11:52 EDT] Pan Regalado RN [facility] Progress Note - Nurse Pt. reports intermittent left upper inner thigh grabbing pain. Pt. moans during these episodes. Tramadol given. Pt. repostioned for comfort. No change in the muscle spasms. Dr. Chacko informed in person. No orders received. [Electronically Signed on: 2019 09:32 EDT] Pan Regalado RN [Verified on: 2019 09:32 EDT] Pan Regalado RN [facility] Progress Note-Physicianon Progress Note-Physician DATE OF [...] PROGNOSIS: Good. Devorah Redd DO JOB #: [id number] [Electronically Signed on: 2019 13:04 EDT] DEVORAH REDD DO [Verified on: 2019 13:04 EDT] HERIBERTORUDOLPHHemant BOYD [Transcribed on: 2019 11:05 EDT] GDU Normal [facility] .Auto Diff 1on 09-27-2019 Auto [place] % 9 % Normal 1-12 [facility] Comment on above: Performed By: #### 1 [id number], [id number], 8762131 #### [facility] (DEFAULT) [address] [place] [address] 84226 Baso Abs# 0.0 x10 Normal 0.0-0.2 [facility] Comment on above: Performed By: #### 1 [id number], 65119388, 1090294 #### [facility] (DEFAULT) [address] [place] [address] 79251 Basophils/100 WBC (Bld) 0.1 % Low 0.2-2.0 [facility] Comment on above: Performed By: #### 1 [id number], 28452191, 7107611 #### [facility] (DEFAULT) [address] [place] [address] 53913 Eos Abs# 0.2 x10 Normal 0.0-0.4 [facility] Comment on above: Performed By: #### 1 [id number], 69679862, 8389512 #### [facility] (DEFAULT) [address] [place] [address] 12149 Eosinophils/100 WBC (Bld) 1.6 % Normal 0.9-4.0 [facility] Comment on above: Performed By: #### 1 [id number], 74359836, 2959134 #### [facility] (DEFAULT) [address] [place] [address] 54489 Lymphocytes (Bld) [#/Vol] 0.5 x10 Low 1.3-2.9 [facility] Comment on above: Performed By: #### 1 [id number], 14851446, 1507811 #### [facility] (DEFAULT) [address] [place] [address] 58764 Lymphocytes/100 WBC (Bld) 4 % Low 14-48 [facility] Comment on above: Performed By: #### 1 [id number], 16520731, 8939743 #### [facility] (DEFAULT) [address] [place] [address] Ravalli Abs# 1.2 x10 High 0.0-0.8 [facility] Comment on above: Performed By: #### 1 [id number], 73053854, 0556563 #### [facility] (DEFAULT) [address] [place] [address] Neut Abs# 11.5 x10 High 1.5-9.2 [facility] Comment on above: Performed By: #### 1 [id number], 24029155, 5964368 #### [facility] (DEFAULT) [address] [place] [address] 98422 Neutrophils/100 WBC (Bld) 86 % Normal 44-88 [facility] Comment on above: Performed By: #### 1 [id number], 29780515, 0764722 #### [facility] (DEFAULT) [address] [place] [address]20[address] C Urineon 09-27-2019 C Urine Urine Culture [...] <=4 Verified Tri/Sulf S <=2/38 Verified Normal [facility] Comment on above: Performed By: #### 7 [id number], [id number], [id number] #### [facility] (DEFAULT) [address] [place] [address] CBC w/ Auto Diffon 0 Erythrocyte distribution width (RBC) [Ratio] 14.5 % Normal 11.5-15.0 [facility] Comment on above: Performed By: #### 1 [id number], 88867591, 0505882 #### [facility] (DEFAULT) [address] [place] [address] Hematocrit (Bld) [Volume fraction] 39.2 % Normal 33.7-40.4 [facility] Comment on above: Performed By: #### 1 [id number], 42827612, 1788412 #### [facility] (DEFAULT) [address] [place] [address] Hemoglobin (Bld) [Mass/Vol] 12.8 g/dL Normal 11.3-15.9 [facility] Comment on above: Performed By: #### 1 [id number], 75942088, 6447174 #### [facility] (DEFAULT) [address] [place] [address] Man Diff? Auto Normal [facility] Comment on above: Performed By: #### 1 [id number], 22093968, 1946206 #### [facility] (DEFAULT) [address] [place] [address] MCH (RBC) [Entitic mass] 33 pg Normal 24-34 [facility] Comment on above: Performed By: #### 1 [id number], 15561026, 0322405 #### [facility] (DEFAULT) [address] [place] [address] 09079 MCHC (RBC) [Mass/Vol] 33 g/dL Normal 26-37 [facility] Comment on above: Performed By: #### 1 [id number], 42712956, 9386052 #### [facility] (DEFAULT) [address] [place] [address] 68761 MCV (RBC) [Entitic vol] 101 fL High 81-100 [facility] Comment on above: Performed By: #### 1 [id number], 41524736, 9448815 #### [facility] (DEFAULT) [address] [place] [address] 28668 Platelet mean volume (Bld) [Entitic vol] 9.8 fL Normal 6.3-10.2 [facility] Comment on above: Performed By: #### 1 [id number], 86374740, 9894878 #### [facility] (DEFAULT) [address] [place] [address] 19042 Platelets (Bld) [#/Vol] 266 x10 Normal 138-427 [facility] Comment on above: Performed By: #### 1 [id number], 32544592, 7921073 #### [facility] (DEFAULT) [address] [place] [address] 97629 RBC (Bld) [#/Vol] 3.89 x10 Normal 3.70-5.30 [facility] Comment on above: Performed By: #### 1 [id number], 28983983, 8398170 #### [facility] (DEFAULT) [address] [place] [address] 63017 WBC (Bld) [#/Vol] 13.4 x10 [facility] Comment on above: Result Comment: Slid e Reviewed Performed By: #### 1 [id number], [id number], 5270531 #### [facility] (DEFAULT) [address] [place] [address] Coding Summaryon 09-27-2019 Coding Summary CODING DATE: 020 [facility] STATUS: Home PAYOR: Medicare ADMIT [...] Lawrence Date Saved: 09/27/2019 11:11 am [facility] Extra Greenon 09-27-2019 Tube Collected Yes [facility] Comment on above: Performed By: #### 1 [id number], 41036786, 0958511 #### [facility] (DEFAULT) [address] [place] [address] Nutrition Noteon 09-27-2019 Nutrition Note Pt eating poorly, av g less than 30% of meals per intake records. Supplements also taken sporadically. Suspect pain and constipation may be playing a role. No new wts. Last BM 09/23. Possible discharge later today. Will continue to follow and monitor need to adjust supplements ie. offer to make into a milkshake, [facility] Pharmacy Noteon 09-27-2019 Pharmacy Note I [...] on: 09/27/2019 14:01 EDT] Virgie Santos [facility] Progress Note - Nurseon 09-08 Progress Note - Nurse 1800 one dulcolax suppository administered, will continue to monitor. [Electronically Signed on: 09/27/2019 18:03 EDT] Luli Mclain RN [Verified on: 09/27/2019 18:03 EDT] Luli Mclain RN [facility] Progress Note - Nurse 1710 tramadol 50mg po administered for #10 left upper thigh pain , will continue to monitor. [Electronically Signed on: 09/27/2019 17:09 EDT] Luli Mclain RN [Verified on: 09/27/2019 17:09 EDT] Luli Mclain RN [facility] Progress Note-Physicianon Progress Note-Physician DATE OF [...] PROGNOSIS: Good. Devorah Redd DO JOB #: [id number] bk [Electronically Signed on: 2019 10:28 EDT] DEVORAH REDD DO [Verified on: 2019 10:28 EDT] DEVORAH REDD DO [Transcribed on: 09/27/2019 13:52 EDT] GDU Normal [facility] .Auto Diff 1on 09-26-2019 Auto [place] % 9 % Normal 1-12 [facility] Comment on above: Performed By: #### 1 [id number], 24649541, 0316532 #### [facility] (DEFAULT) [address] [place] [address] Baso Abs# 0.0 x10 Normal 0.0-0.2 [facility] Comment on above: Performed By: #### 1 [id number], 77582157, 9099993 #### [facility] (DEFAULT) [address] [place] [address] 09052 Basophils/100 WBC (Bld) 0.1 % Low 0.2-2.0 [facility] Comment on above: Performed By: #### 1 [id number], 56427841, 7497805 #### [facility] (DEFAULT) [address] [place] [address] 90546 Eos Abs# 0.2 x10 Normal 0.0-0.4 [facility] Comment on above: Performed By: #### 1 [id number], 31588833, 5834925 #### [facility] (DEFAULT) [address] [place] [address] Eosinophils/100 WBC (Bld) 2.0 % Normal 0.9-4.0 [facility] Comment on above: Performed By: #### 1 [id number], 42353056, 8845018 #### [facility] (DEFAULT) [address] [place] [address] Lymphocytes (Bld) [#/Vol] 0.6 x10 Low 1.3-2.9 [facility] Comment on above: Performed By: #### 1 [id number], 70961535, 6889034 #### [facility] (DEFAULT) [address] [place] [address] Lymphocytes/100 WBC (Bld) 6 % Low 14-48 [facility] Comment on above: Performed By: #### 1 [id number], 70180606, 1884853 #### [facility] (DEFAULT) [address] [place] [address] [place] Abs# 0.9 x10 High 0.0-0.8 [facility] Comment on above: Performed By: #### 1 [id number], 24650369, 9421476 #### [facility] (DEFAULT) [address] [place] [address] Neut Abs# 8.3 x10 Normal 1.5-9.2 [facility] Comment on above: Performed By: #### 1 [id number], 85721325, 2543937 #### [facility] (DEFAULT) [address] [place] [address] 82743 Neutrophils/100 WBC (Bld) 83 % Normal 44-88 [facility] Comment on above: Performed By: #### 1 [id number], 92376404, 0253266 #### [facility] (DEFAULT) [address] [place] [address] BMP Standardon 09-26-2019 eGFR Non AA 48 mL/min/1.73m2 [facility] Comment on above: Performed By: #### 1 [id number], 00908425, 4013283 #### [facility] (DEFAULT) [address] [place] [address] 31634 eGFR AA 58 mL/min/1.73m2 [facility] Comment on above: Result Comment: Urban Planning Teacher kody Kidney disease could be indicated at eGFRs of less than 60 ml/min/1.73m2. Kidney Failure is indicated at less than 15 ml/min/1.73m2 Performed By: #### 1 [id number], [id number], [id number] #### [facility] (DEFAULT) [address] [place] [address] 34942 Anion gap [Moles/Vol] 10.0 mmol/L Normal 5.0-19.0 [facility] Comment on above: Performed By: #### 1 [id number], 88368340, 5473132 #### [facility] (DEFAULT) [address] [place] [address] 77525 Calcium [Mass/Vol] 8.8 mg/dL Low 8.9-10.3 [facility] Comment on above: Performed By: #### 1 [id number], [id number], [id number] #### [facility] (DEFAULT) [address] [place] [address] 75156 Chloride [Moles/Vol] 103 mmol/L Normal 101-111 [facility] Comment on above: Performed By: #### 1 [id number], 57268166, 6595835 #### [facility] (DEFAULT) [address] [place] [address] 25199 CO2 [Moles/Vol] 28 mmol/L Normal 21-32 [facility] Comment on above: Performed By: #### 1 [id number], 64695222, 9007355 #### [facility] (DEFAULT) [address] [place] [address] 80682 Creatinine [Mass/Vol] 1.09 mg/dL Normal 0.60-1.30 [facility] Comment on above: Performed By: #### 1 [id number], 02333450, 5419061 #### [facility] (DEFAULT) [address] [place] [address] 96236 Glucose [Mass/Vol] 94.0 mg/dL Normal 74.0-118.0 [facility] Comment on above: Performed By: #### 1 [id number], 52136807, 6960024 #### [facility] (DEFAULT) [address] [place] [address] 07459 Osmolality [Osmolality] 276 mOsm/L [facility] Comment on above: Performed By: #### 1 [id number], 40543591, 8940405 #### [facility] (DEFAULT) [address] [place] [address] 00713 Potassium [Moles/Vol] 4.4 mmol/L Normal 3.6-5.1 [facility] Comment on above: Performed By: #### 1 [id number], 94527432, 0281595 #### [facility] (DEFAULT) [address] [place] [address] 79379 Sodium [Moles/Vol] 137.0 mmol/L Normal 136.0-144 . 0 [facility] Comment on above: Performed By: #### 1 [id number], 71420258, 6456310 #### [facility] (DEFAULT) [address] [place] [address] 31677 Urea nitrogen [Mass/Vol] 19 mg/dL Normal 8-26 [facility] Comment on above: Performed By: #### 1 [id number], 97167652, 4365841 #### [facility] (DEFAULT) [address] [place] [address] 31327 Urea nitrogen/Creatinine [Mass ratio] 17.0 mg/mg High 4.6-16.2 [facility] Comment on above: Performed By: #### 1 [id number], 04307710, 9284757 #### [facility] (DEFAULT) [address] [place] [address] 77899 CBC w/ Auto Diffon 0 Erythrocyte distribution width (RBC) [Ratio] 14.4 % Normal 11.5-15.0 [facility] Comment on above: Performed By: #### 1 [id number], 64193314, 5238901 #### [facility] (DEFAULT) [address] [place] [address] Hematocrit (Bld) [Volume fraction] 35.5 % Normal 33.7-40.4 [facility] Comment on above: Performed By: #### 1 [id number], 13585556, 5444281 #### [facility] (DEFAULT) [address] [place] [address] Hemoglobin (Bld) [Mass/Vol] 11.6 g/dL Normal 11.3-15.9 [facility] Comment on above: Performed By: #### 1 [id number], 47742988, 8256792 #### [facility] (DEFAULT) [address] [place] [address] Man Diff? Auto Normal [facility] Comment on above: Performed By: #### 1 [id number], 45566548, 9992768 #### [facility] (DEFAULT) [address] [place] [address] MCH (RBC) [Entitic mass] 33 pg Normal 24-34 [facility] Comment on above: Performed By: #### 1 [id number], 24631960, 6217554 #### [facility] (DEFAULT) [address] [place] [address] 21748 MCHC (RBC) [Mass/Vol] 33 g/dL Normal 26-37 [facility] Comment on above: Performed By: #### 1 [id number], 42051934, 2433454 #### [facility] (DEFAULT) [address] [place] [address] 08149 MCV (RBC) [Entitic vol] 102 fL High 81-100 [facility] Comment on above: Performed By: #### 1 [id number], 02931901, 6981045 #### [facility] (DEFAULT) [address] [place] [address] 55864 Platelet mean volume (Bld) [Entitic vol] 9.8 fL Normal 6.3-10.2 [facility] Comment on above: Performed By: #### 1 [id number], 37513267, 5944301 #### [facility] (DEFAULT) [address] [place] [address] Platelets (Bld) [#/Vol] 236 x10 Normal 138-427 [facility] Comment on above: Performed By: #### 1 [id number], 08591997, 4456169 #### [facility] (DEFAULT) [address] [place] [address] 88940 RBC (Bld) [#/Vol] 3.49 x10 Low 3.70-5.30 [facility] Comment on above: Performed By: #### 1 [id number], 52386856, 6753249 #### [facility] (DEFAULT) [address] [place] [address] 37885 WBC (Bld) [#/Vol] 10.0 x10 [facility] Comment on above: Performed By: #### 1 [id number], 70693777, 8053396 #### [facility] (DEFAULT) [address] [place], [place] [address] Consent Formson 09-26-2019 Consent Forms [id number]#[id number] Normal [facility] Consultation/Specialist Note on 09-26-2019 Consultation/Specia [...] tolerated. [Electronically Signed on: 09/26/2019 07:35 EDT] RIDDHISUDHEER HOLLOWAY [Verified on: 09/26/2019 07:35 EDT] SUDHEER PIKE [facility] Progress Note - Nurseon 08- Progress [...] 09/26/2019 07:45 EDT] Twila Cruz RN Normal [facility] .Auto Diff 1on 09-25-2019 Auto [place] % 8 % Normal 1-12 [facility] Comment on above: Performed By: #### 1 [id number], 37730608, 9285720 #### [facility] (DEFAULT) [address] [place] [address] Baso Abs# 0.0 x10 Normal 0.0-0.2 [facility] Comment on above: Performed By: #### 1 [id number], 12902485, 4898026 #### [facility] (DEFAULT) [address] [place] [address] 42971 Basophils/100 WBC (Bld) 0.2 % Normal 0.2-2.0 [facility] Comment on above: Performed By: #### 1 [id number], 03920926, 8821869 #### [facility] (DEFAULT) [address] [place] [address] 09192 Eos Abs# 0.1 x10 Normal 0.0-0.4 [facility] Comment on above: Performed By: #### 1 [id number], 40832202, 9856764 #### [facility] (DEFAULT) [address] [place] [address] Eosinophils/100 WBC (Bld) 0.5 % Low 0.9-4.0 [facility] Comment on above: Performed By: #### 1 [id number], 57442508, 5757288 #### [facility] (DEFAULT) [address] [place] [address] 85866 Lymphocytes (Bld) [#/Vol] 1.1 x10 Low 1.3-2.9 [facility] Comment on above: Performed By: #### 1 310643459, 89503794, 2577820 #### [facility] (DEFAULT) [address] [place] [address] Lymphocytes/100 WBC (Bld) 9 % Low 14-48 [facility] Comment on above: Performed By: #### 1 [id number], 95763352, 4565549 #### [facility] (DEFAULT) [address] [place] [address] [place] Abs# 1.0 x10 High 0.0-0.8 [facility] Comment on above: Performed By: #### 1 [id number], 99959742, 8116598 #### [facility] (DEFAULT) [address] [place] [address] Neut Abs# 9.6 x10 High 1.5-9.2 [facility] Comment on above: Performed By: #### 1 480542089, 13119919, 2948768 #### [facility] (DEFAULT) [address] [place] [address] Neutrophils/100 WBC (Bld) 82 % Normal 44-88 [facility] Comment on above: Performed By: #### 1 [id number], 50865081, 2205803 #### [facility] (DEFAULT) [address] [place] [address] ABORhon 09-25-2019 ABO and Rh group Nom (Bld) Hx Check: Not Found Anti-A: 4+ Anti-B: 0 Anti-D: 4+ DCon: NT A1: 0 B: 4+ ABORh Interp: A POS [facility] Comment on above: Performed By: #### 7 [id number], 75209752, [id number] #### [facility] (DEFAULT) [address] [place] [address] ABORh Retypeon 09-25-2019 ABO and Rh group Nom (Bld) Ordered by Discern. Anti-A: 4+ Anti-B: 0 Anti-D: 4+ DCon: NT A1: 0 B: 4+ ABORh Retype: A POS [facility] Comment on above: Performed By: #### 7 637261, 88371973, [id number] #### [facility] (DEFAULT) [address] [place] [address] ABSC Gelon 09-25-2019 ABSC Gel Negative Normal [facility] Comment on above: Performed By: #### 7 685736, 87377102, [id number] #### [facility] (DEFAULT) [address] [place] [address] Anesthesia Noteon 09-25-2019 Anesthesia Note Patient: DONTAE [...] risk of pressure sore / SNOMED CT 336520300 / Confirmed CAD (coronary artery disease) / SNOMED CT 63170017 / Confirmed Hyperlipidemia / SNOMED CT 52218761 / Confirmed Hypertension / SNOMED CT 8891838933 / Confirmed Skin cancer / SNOMED CT 8219419029 / Confirmed Osteoporosis / SNOMED CT 085444699 / Confirmed Restless leg syndrome / SNOMED CT 78654913 / Confirmed Resolved: GERD (gastroesophageal reflux disease) / SNOMED CT 179117316 Histories Family History: Cancer Sister Brother Aneurysm Mother CHF - Congestive heart failure Father [place] (myocardial infarction) Sister Procedure history: Umbilical hernia (8009593229). Arthroscopy (51532761). Comments: 08/29/2019 12:57 Dionne Mccarty RN arthroscopy of knee Cholecystectomy (15070392). Hysterectomy (442393110). Cataract (238283747). Shoulder (19984014). Comments: 08/29/2019 12:58 Dionne Mccarty RN arthroscopy CABG (Coronary artery bypass grafting) planned (071125466). Colonoscopy (858937665). EGD - Esophagogastroduodenoscopy (0430793796). Meniscectomy (030863234). Hip arthroplasty (017630268). Social History Electronic Cigarette/Vaping Assessment Electronic Cigarette [...] (SEP 24 07:45) DBP 67 mmHg (SEP 24:45) SpO2 95 % (SEP 24 07:45) Weight [...] axis dev, LAFB, RV conduction delay. Plan [place]esthesiologists#(ASA) physical status classification: Class III. Anesthetic Preoperative Plan Anesthesia: Regional Spinal. Anesthetic plan, risks, benefits, and alternatives discussed with the patient and/or family. Patient verbalized understanding. Informed consent was given. Consent was signed by the patient. [Electronically Signed on: 09/25/2019 10:10 EDT] Enrike Mora MD [Verified on: 09/25/2019 10:10 EDT] Enrike Mora MD Normal [facility] Blood [facility] 09[facility]-2019 Blood Bank ID BBID: [id number] [facility] Comment on above: Performed By: #### 7 [id number], 88246263, [id number] #### [facility] (DEFAULT) [address] [place] [address] 14316 CBC w/ Auto Diffon 0 Erythrocyte distribution width (RBC) [Ratio] 14.4 % Normal 11.5-15.0 [facility] Comment on above: Performed By: #### 1 044503596, 95278644, 1875279 #### [facility] (DEFAULT) [address] [place] [address] 43561 Hematocrit (Bld) [Volume fraction] 39.2 % Normal 33.7-40.4 [facility] Comment on above: Performed By: #### 1 252281351, 32010920, 2021279 #### [facility] (DEFAULT) [address] [place] [address] 72930 Hemoglobin (Bld) [Mass/Vol] 12.8 g/dL Normal 11.3-15.9 [facility] Comment on above: Performed By: #### 1 [id number], 91190216, 0170765 #### [facility] (DEFAULT) [address] [place] [address] 22979 Man Diff? Auto Normal [facility] Comment on above: Performed By: #### 1 346757748, 98469390, 4873354 #### [facility] (DEFAULT) [address] [place] [address] 82649 MCH (RBC) [Entitic mass] 33 pg Normal 24-34 [facility] Comment on above: Performed By: #### 1 184467756, 52693596, 2832275 #### [facility] (DEFAULT) [address] [place] [address] 52003 MCHC (RBC) [Mass/Vol] 33 g/dL Normal 26-37 [facility] Comment on above: Performed By: #### 1 [id number], 05664704, 8994922 #### [facility] (DEFAULT) [address] [place] [address] 59632 MCV (RBC) [Entitic vol] 102 fL High 81-100 [facility] Comment on above: Performed By: #### 1 943637170, 10095689, 4557139 #### [facility] (DEFAULT) [address] [place] [address] 49084 Platelet mean volume (Bld) [Entitic vol] 9.4 fL Normal 6.3-10.2 [facility] Comment on above: Performed By: #### 1 371704422, 60399630, 0090143 #### [facility] (DEFAULT) [address] [place] [address] 29526 Platelets (Bld) [#/Vol] 272 x10 Normal 138-427 [facility] Comment on above: Performed By: #### 1 646401104, 66152873, 9176782 #### [facility] (DEFAULT) [address] [place] [address] RBC (Bld) [#/Vol] 3.85 x10 Normal 3.70-5.30 [facility] Comment on above: Performed By: #### 1 279694139, 46760380, 5205873 #### [facility] (DEFAULT) [address] [place] [address] WBC (Bld) [#/Vol] 11.7 x10 High 3.5-10.5 [facility] Comment on above: Performed By: #### 1 [id number], 18898869, 9336027 #### [facility] (DEFAULT) [address] [place] [address] 16517 Extra [place] 09-25-2019 Tube Collected Yes [facility] Comment on above: Performed By: #### 7 049852, 28420339, [id number] #### [facility] (DEFAULT) [address] [place] [address] H&Hon 09-25-2019 Hematocrit (Bld) [Volume fraction] 39.9 % Normal 33.7-40.4 [facility] Comment on above: Performed By: #### 7 016910, 25720995, 5434120059 #### [facility] (DEFAULT) [address] [place] [address] Hemoglobin (Bld) [Mass/Vol] 12.7 g/dL Normal 11.3-15.9 [facility] Comment on above: Performed By: #### 7 985246, 03528288, 6809958929 #### [facility] (DEFAULT) [address] [place] [address] History and Physicalon 09-24 History and Physical [id number] Normal [facility] MAGR Intraoperative Recordon 09-25-2019 MAGR Intraoperative Record MAGR Intra-Op Record Summary Primary Physician: Mi Licea DO Finalized Date/Time: 09/25/19 15:04:11 Pt. Name: DELICIA HSU /Sex: 1935 FEMALE Med Rec #: [id number] Physician: Mi Licea DO Financial #: [id number] Pt. Type: I Room/Bed: [facility] Admit/Disch: 09/25/19 06:52:00 - Institution: Case Times [...] Role Performed Surgeon - Primary Anesthesiologist of [place] Record Time In 09/25/19 09:37:00 09/25/19 09:37:00 09/25/19 09:37:00 Time Out 09/25/19 11:50:00 09/25/19 11:50:00 09/25/19 11:50:00 Procedure Arthroplasty Total Arthroplasty Total Arthroplasty Total Hip(Left) Hip(Left) Hip(Left) Last Modified By: Marj Sullivan RN, Stephanie RN Sauer, Stephanie RN 09/25/19 12:54:58 09/25/19 12:54:58 09/25/19 12:54:58 Entry 4 Entry 5 Entry 6 Case Attendee Montrell MCKEON, Shantal Moreira Leigh-Ann CST Role Performed Scrub Personnel Solutions Engineer Solutions Engineer Time In 09/25/19 09:37:00 09/25/19 09:37:00 09/25/19 [...] Mi Licea Outcome Met (O.130) Yes Eduardo DO Last Modified By: Marj Sullivan RN 09/25/19 [...] 50MM 6.5 X 30MM 6.5 X 15MM Supervisor/Port Director DEPUY DEPUY DEPUY Catalog # Lot Number [id number] Expiration Date 05/08/24 03/10/29 01/07/29 Serial Number [id number] REF 1217-30-500 REF 1217-15-500 Device Identifier Human Readable EDDA Machine Readable EDDA MR Class Implant Usage Data Site Hip L Hip L Hip L Quantity 1 1 1 Reason for Explant Reason Not Retained Explant Disposition English Tutor Sterility External Indicator Result Internal Indicator Results [...] DO Size 6.5 X 15MM 50MM PS Supervisor/Port Director PerSay Catalog # Lot Number [id number] Expiration Date 11/07/28 04/07/29 04/07/29 Serial Number REF 1217-15-500 REF [id number] REF 1246-03-000 Device Identifier Human Readable EDDA Machine Readable EDDA MR Class Implant Usage Data Site Hip L Hip L Hip L Quantity 1 1 1 Reason for Explant Reason Not Retained Explant Disposition English Tutor Sterility External Indicator Result Internal Indicator Results [...] SHORT NECK COLLAR /14 TAPER SIZE 11 Supervisor/Port Director DEPUY Optimal+ Catalog # Lot Number [id number] Expiration Date 02/08/24 02/08/24 Serial Number REF [id number] REF 1365-22-000 Device Identifier Human Readable EDDA Machine Readable EDDA MR Class Implant Usage Data Site Hip L Hip L Quantity 1 1 Reason for Explant Reason Not Retained Explant Disposition English Tutor Sterility External Indicator Result Internal Indicator Results [...] 09/25/19 15:04 MARSHA Modify [facility] PACU Record [facility] PACU Record [facility] Primary Physician: Mi Licea DO Finalized Date/Time: 09/25/19 12:53:39 Pt. Name: DELICIA HSU Starla/Sex: 1935 FEMALE Med Rec #: [id number] Physician: Mi Licea DO Financial #: [id number] Pt. Type: I Room/Bed: 221/1 Admit/Disch: 09/25/19 06:52:00 - Institution: PACU Case Times MAGR Entry 1 In PACU I 09/25/19 11:50:00 Discharge from PACU 09/25/19 12:40:00 I Last Modified By: Dionne Yun RN 09/25/19 12:53:35 Finalized By: Dionne Yun RN Document Signatures Signed By: Dionne Yun RN 09/25/19 [facility] 09-25-2019 MAGR Preoperative Record MAGR Pre-Op Record Summary Primary Physician: Mi Licea DO Finalized Date/Time: 09/25/19 11:58:52 Pt. Name: DELICIA HSU Starla/Sex: 1935 FEMALE Med Rec #: [id number] Physician: Mi Licea DO Financial #: [id number] Pt. Type: I Room/Bed: 221/1 Admit/Disch: 09/25/19 [...] consent correct. General Comments: Pt arrives to [facility] ambulatory. Pt denies any pain, Cp, sob, cough or flu like symptoms. Pt denies pacemaker/defibillator, pt has sleep apnea but does not wear cpap. Finalized By: Dionne Yun RN Document Signatures Signed By: Dionne Yun RN 09/25/19 11:58 [facility] Nutrition Noteon 09-25-2019 Nutrition Note Pt admitted for sche duled Lt total hip sx; placed on a Regular diet as tolerated w/ post op supplements BID along w/ usual vitamin/mineral supplementation. Nutritional supplements adjusted to what's available in house. Per advertising executive assessment, Pt reports wt loss of 2-13lb, [...] to offer prunes/prune alfred q am. [facility] Operative Report - Surgeon/P hung 09-25-2019 [...] 10/18/2019 21:39 EDT] Mi Licea DO [facility] Pharmacy Noteon 09-25-2019 Pharmacy Note I [...] on: 09/25/2019 13:26 EDT] Virgie Santos [facility] Pharmacy Note I have personally re [...] Marj Mccall [Verified on: 09/25/2019 13:04 EDT] StefanyStevenie [facility] Progress Note - Nurseon 08- TSH [...] 09/25/2019 19:48 EDT] Indy Vidal RN [facility] Progress Note - Nurse Complaining of [...] Cruz RN [Verified on: 09/25/2019 19:51 EDT] Bilger RN, [facility] UA [id number] 09-25-2019 RBC (U) [#/Vol] 0-2 [facility] Comment on above: Order Comment: Urina lysis Microscopic order added on by Discern Expert Rules system. Performed By: #### 7 [id number], 57382295, [id number] #### [facility] (DEFAULT) [address] [place] [address] UA Bacteria 4+ [facility] Comment on above: Order Comment: Urina lysis Microscopic order added on by Discern Expert Rules system. Performed By: #### 7 879692, 60691338, [id number] #### [facility] (DEFAULT) [address] [place] [address] UA Squam Epi Rare [facility] Comment on above: Order Comment: Urina lysis Microscopic order added on by [employer] Expert Rules system. Performed By: #### 7 381200, 58848395, [id number] #### [facility] (DEFAULT) [address] [place] [address] UA WBC 0-2 [facility] Comment on above: Order Comment: Urina lysis Microscopic order added on by [employer] Expert Rules system. Performed By: #### 7 260000, 56253169, [id number] #### [facility] (DEFAULT) [address] [place] [address] UA w Culture if Ind Standard on 09-25-2019 Breakpoint UA [facility] Comment on above: Order Comment: sim insert Performed By: #### 7 [id number], 65162656, [id number] #### [facility] (DEFAULT) [address] [place] [address] Color (U) Yellow [facility] Comment on above: Order Comment: sim insert Performed By: #### 7 925811, 97768076, [id number] #### [facility] (DEFAULT) [address] [place] [address] Culture? Indicated [facility] Comment on above: Order Comment: sim insert Performed By: #### 7 688965, 76506659, [id number] #### [facility] (DEFAULT) [address] [place] [address] 91295 Glucose (U) [Mass/Vol] Negative Normal [facility] Comment on above: Order Comment: sim insert Performed By: #### 7 486935, 44610217, [id number] #### [facility] (DEFAULT) [address] [place] [address] 92016 Ketones Ql (U) Negative Normal [facility] Comment on above: Order Comment: sim insert Performed By: #### 7 610434, 91032386, [id number] #### [facility] (DEFAULT) [address] [place] [address] 50323 Micro? Indicated [facility] Comment on above: Order Comment: sim insert Performed By: #### 7 396617, 12601970, [id number] #### [facility] (DEFAULT) [address] [place] [address] 05763 UA Bilirubin Negative Normal [facility] Comment on above: Order Comment: sim insert Performed By: #### 7 643659, 75041249, [id number] #### [facility] (DEFAULT) [address] [place] [address] 60134 UA Blood Negative Normal NEGATIVE [facility] Comment on above: Order Comment: sim insert Performed By: #### 7 732098, 57700832, [id number] #### [facility] (DEFAULT) [address] [place] [address] 54499 UA Clarity CLEAR Normal CLEAR [facility] Comment on above: Order Comment: sim insert Performed By: #### 7 404469, 98505158, [id number] #### [facility] (DEFAULT) [address] [place] [address] 25435 UA Leuk Est SMALL Abnormal NEGATIVE [facility] Comment on above: Order Comment: sim insert Performed By: #### 7 835618, 00809682, [id number] #### [facility] (DEFAULT) [address] [place] [address] 86754 UA Nitrite Positive Abnormal NEGATIVE [facility] Comment on above: Order Comment: sim insert Performed By: #### 7 051546, 05306364, [id number] #### [facility] (DEFAULT) [address] [place] [address] UA pH 7.0 Normal 5-8 [facility] Comment on above: Order Comment: sim insert Performed By: #### 7 457554, 78974325, [id number] #### [facility] (DEFAULT) [address] [place] [address] 43205 UA Protein Negative Normal NEGATIVE [facility] Comment on above: Order Comment: sim insert Performed By: #### 7 463218, 21754517, [id number] #### [facility] (DEFAULT) [address] [place] [address] 14061 UA Spec Grav 1.020 Normal 1.001-1.03 5 [facility] Comment on above: Order Comment: sim insert Performed By: #### [id number] #### [facility] (DEFAULT) [address] [place] [address] 16209 UA Urobilinogen 0.2 mg/dL Normal 0.2-1.0 [place] [facility] Comment on above: Order Comment: sim insert Performed By: #### 7 [id number], [id number], [id number] #### [facility] (DEFAULT) [address] [place] [address] 31573 Urine Source Clean Catch Normal [facility] Comment on above: Order Comment: sim insert Performed By: #### 7 [id number], [id number], [id number] #### [facility] (DEFAULT) [address] [place] [address] 80086 XR Hip Complete Lefton 09-24 XR Hip [...] 09/25/19 3:55 pm Technologist: OCHOA NAZARIO [facility] Patient Handouton 09-24-2019 Patient Handout [facility] Progress Note - Nurseon 09-08 Progress Note - Nurse Spoke with pt regarding arrival time of 0700 and NPO status. Verbalized understanding. [Electronically Signed on: 09/22/2019 09:47 EDT] Kimberley Holden RN [Verified on: 09/22/2019 09:47 EDT] Kimberley Holden RN [facility] SARS-CoV-2 (COVID-19) PCRon 09-22-2019 COVID-19 PCR Not Detected Normal Not Detected [facility] Comment on above: Performed By: #### 7 [id number], [id number], [id number] #### [facility] (DEFAULT) [address] [place] [address] Employed in healthcare? Unknown [facility] Comment on above: Performed By: #### 7 419967, [id number], [id number] #### [facility] (DEFAULT) [address] [place] [address] Group care resident? Unknown [facility] Comment on above: Performed By: #### 7 [id number], [id number], [id number] #### [facility] (DEFAULT) [address] [place] [address] Hospitalized due to COVID-19? Unknown [facility] Comment on above: Performed By: #### 7 059605, [id number], [id number] #### [facility] (DEFAULT) [address] [place] [address] 73782 In ICU? Unknown [facility] Comment on above: Performed By: #### 7 941233, [id number], [id number] #### [facility] (DEFAULT) [address] [place] [address] 45277 status? Unknown [facility] Comment on above: Performed By: #### 7 486111, [id number], [id number] #### [facility] (DEFAULT) [address] [place] [address] 73153 Symptomatic as defined by CDC? Unknown [facility] Comment on above: Performed By: #### 7 380407, [id number], [id number] #### 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 K21.9 Gastro-esophageal [...] Lawrence Date Saved: 09/13/2019 09:18 am [facility] Coding Summaryon 09-06-2019 Coding Summary CODING DATE: 020 [facility] STATUS: Home PAYOR: Medicare APC DESCRIPTION 5733 Level 3 Minor Procedures ADMIT DX: REASON FOR VISIT DX: Z01.818 Encounter for other preprocedural examination I10 Essential (primary) hypertension 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 FINAL DX: PRINCIPAL: Z01.818 Encounter for other preprocedural examination SECONDARY: I10 Essential (primary) hypertension 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 [Electronically Signed on: 09/04/2019 13:37 EDT] Dionne Yun RN [Verified on: 09/04/2019 13:37 EDT] Dionne Yun RN [facility] Provider Orderson 09-04-2019 Provider Orders [id number] [facility] C Urineon 09-03-2019 C Urine Urine [...] <=4 Verified Tri/Sulf S <=2/38 Verified Normal [facility] Comment on above: Performed By: #### 1 [id number], [id number], [id number] #### [facility] (DEFAULT) [address] [place] [address] C MRSA Screenon 09-02-2019 C MRSA Screen Negative [facility] Comment on above: Performed By: #### 1 [id number] #### [facility] (DEFAULT) [address] [place] [address] 02556 .Auto Diff 1on 09-01-2019 Auto Ravalli % 10 % Normal 1-12 [facility] Comment on above: Performed By: #### 7 257601, [id number], [id number] #### [facility] (DEFAULT) [address] [place] [address] 13818 Baso Abs# 0.0 x10 Normal 0.0-0.2 [facility] Comment on above: Performed By: #### 7 837571, 49393054, [id number] #### [facility] (DEFAULT) [address] [place] [address] Basophils/100 WBC (Bld) 0.3 % Normal 0.2-2.0 [facility] Comment on above: Performed By: #### 7 296787, 12634202, [id number] #### [facility] (DEFAULT) [address] [place] [address] 22819 Eos Abs# 0.1 x10 Normal 0.0-0.4 [facility] Comment on above: Performed By: #### 7 389948, 26890924, [id number] #### [facility] (DEFAULT) [address] [place] [address] 05129 Eosinophils/100 WBC (Bld) 0.9 % Normal 0.9-4.0 [facility] Comment on above: Performed By: #### 7 013352, 09692942, [id number] #### [facility] (DEFAULT) [address] [place] [address] 36329 Lymphocytes (Bld) [#/Vol] 1.0 x10 Low 1.3-2.9 [facility] Comment on above: Performed By: #### 7 398070, 72965919, [id number] #### [facility] (DEFAULT) [address] [place] [address] 09588 Lymphocytes/100 WBC (Bld) 10 % Low 14-48 [facility] Comment on above: Performed By: #### 7 775279, 17497581, [id number] #### [facility] (DEFAULT) [address] [place] [address] 26974 Ravalli Abs# 1.0 x10 High 0.0-0.8 [facility] Comment on above: Performed By: #### 7 290184, 00351464, [id number] #### [facility] (DEFAULT) [address] [place] [address] 87212 Neut Abs# 8.0 x10 Normal 1.5-9.2 [facility] Comment on above: Performed By: #### 7 148777, 50152663, [id number] #### [facility] (DEFAULT) [address] [place] [address] 96045 Neutrophils/100 WBC (Bld) 79 % Normal 44-88 [facility] Comment on above: Performed By: #### 7 163968, 26036647, [id number] #### [facility] (DEFAULT) [address] [place] [address] 45046 [facility] Standardon 09-01-2019 eGFR Non AA 44 mL/min/1.73m2 [facility] Comment on above: Performed By: #### 7 820001, 46359296, [id number] #### [facility] (DEFAULT) [address] [place] [address] 02227 eGFR AA 54 mL/min/1.73m2 [facility] Comment on above: Result Comment: [employer] Teacher kody Kidney disease could be indicated at eGFRs of less than 60 ml/min/1.73m2. Kidney Failure is indicated at less than 15 ml/min/1.73m2 Performed By: #### 7 696284, 53644380, [id number] #### [facility] (DEFAULT) [address] [place] [address] 68745 Anion gap [Moles/Vol] 15.0 mmol/L Normal 5.0-19.0 [facility] Comment on above: Performed By: #### 7 220909, 75246595, [id number] #### [facility] (DEFAULT) [address] [place] [address] 72200 Calcium [Mass/Vol] 9.2 mg/dL Normal 8.9-10.3 [facility] Comment on above: Performed By: #### 7 715499, 71624192, [id number] #### [facility] (DEFAULT) [address] [place] [address] 48077 Chloride [Moles/Vol] 101 mmol/L Normal 101-111 [facility] Comment on above: Performed By: #### 7 326383, 01181641, [id number] #### [facility] (DEFAULT) [address] [place] [address] 43605 CO2 [Moles/Vol] 25 mmol/L Normal 21-32 [facility] Comment on above: Performed By: #### 7 483992, 79015358, [id number] #### [facility] (DEFAULT) [address] [place] [address] 87595 Creatinine [Mass/Vol] 1.17 mg/dL Normal 0.60-1.30 [facility] Comment on above: Performed By: #### 7 691322, 66490255, [id number] #### [facility] (DEFAULT) [address] [place] [address] 65286 Glucose [Mass/Vol] 94.0 mg/dL Normal 74.0-118.0 [facility] Comment on above: Performed By: #### 7 606139, 64120881, [id number] #### [facility] (DEFAULT) [address] [place] [address] 63930 Osmolality [Osmolality] 276 mOsm/L [facility] Comment on above: Performed By: #### 7 081241, 93788479, [id number] #### [facility] (DEFAULT) [address] [place] [address] 67098 Potassium [Moles/Vol] 4.0 mmol/L Normal 3.6-5.1 [facility] Comment on above: Performed By: #### 7 964437, 27277718, [id number] #### [facility] (DEFAULT) [address] [place] [address] 52261 Sodium [Moles/Vol] 137.0 mmol/L Normal 136.0-144 . 0 [facility] Comment on above: Performed By: #### 7 166992, 05032829, [id number] #### [facility] (DEFAULT) [address] [place] [address] 96748 Urea nitrogen [Mass/Vol] 20 mg/dL Normal 8-26 [facility] Comment on above: Performed By: #### 7 437957, 22789647, [id number] #### [facility] (DEFAULT) [address] [place] [address] 84224 Urea nitrogen/Creatinine [Mass ratio] 17.0 mg/mg High 4.6-16.2 [facility] Comment on above: Performed By: #### 7 701172, 26331065, [id number] #### [facility] (DEFAULT) [address] [place] [address] 61817 CBC w/ Auto Diffon 0 Erythrocyte distribution width (RBC) [Ratio] 13.9 % Normal 11.5-15.0 [facility] Comment on above: Performed By: #### 7 441734, 51243993, [id number] #### [facility] (DEFAULT) [address] [place] [address] Hematocrit (Bld) [Volume fraction] 38.5 % Normal 33.7-40.4 [facility] Comment on above: Performed By: #### 7 864797, 40709003, [id number] #### [facility] (DEFAULT) [address] [place] [address] Hemoglobin (Bld) [Mass/Vol] 12.6 g/dL Normal 11.3-15.9 [facility] Comment on above: Performed By: #### 7 465797, 67720849, [id number] #### [facility] (DEFAULT) [address] [place] [address] Man Diff? Auto Normal [facility] Comment on above: Performed By: #### 7 308080, 81311534, [id number] #### [facility] (DEFAULT) [address] [place] [address] 58082 MCH (RBC) [Entitic mass] 33 pg Normal 24-34 [facility] Comment on above: Performed By: #### 7 910669, 65541546, [id number] #### [facility] (DEFAULT) [address] [place] [address] 72729 MCHC (RBC) [Mass/Vol] 33 g/dL Normal 26-37 [facility] Comment on above: Performed By: #### 7 514353, 10812750, [id number] #### [facility] (DEFAULT) [address] [place] [address] 00434 MCV (RBC) [Entitic vol] 101 fL High 81-100 [facility] Comment on above: Performed By: #### 7 171881, 73983402, [id number] #### [facility] (DEFAULT) [address] [place] [address] 29065 Platelet mean volume (Bld) [Entitic vol] 9.5 fL Normal 6.3-10.2 [facility] Comment on above: Performed By: #### 7 628932, 48826636, [id number] #### [facility] (DEFAULT) [address] [place] [address] 62991 Platelets (Bld) [#/Vol] 292 x10 Normal 138-427 [facility] Comment on above: Performed By: #### 7 265579, 42950281, [id number] #### [facility] (DEFAULT) [address] [place] [address] 85846 RBC (Bld) [#/Vol] 3.82 x10 Normal 3.70-5.30 [facility] Comment on above: Performed By: #### 7 059882, 98475588, [id number] #### [facility] (DEFAULT) [address] [place] [address] 84290 WBC (Bld) [#/Vol] 10.1 x10 Normal 3.5-10.5 [facility] Comment on above: Performed By: #### 7 901820, 46124550, [id number] #### [facility] (DEFAULT) [address] [place] [address] UA Hkdmo2ya 09-01-2019 RBC (U) [#/Vol] None Seen [facility] Comment on above: Order Comment: Urina lysis Microscopic order added on by [employer] Expert Rules system. Performed By: #### 1 [id number], 37568041, [id number] #### [facility] (DEFAULT) [address] [place] [address] UA Amorph. 1+ Normal [facility] Comment on above: Order Comment: Urina lysis Microscopic order added on by [employer] Rules system. Performed By: #### 1 [id number], 68220267, 8606904 #### [facility] (DEFAULT) [address] [place] [address] UA Bacteria 4+ Normal [facility] Comment on above: Order Comment: Urina lysis Microscopic order added on by [employer] system. Performed By: #### 1 [id number], 30583119, [id number] #### [facility] (DEFAULT) [address] [place] [address] UA Squam Epi Moderate Normal [facility] Comment on above: Order Comment: Urina lysis Microscopic order added on by [employer] Rules system. Performed By: #### 1 [id number], 58325304, [id number] #### [facility] (DEFAULT) [address] [place] [address] UA WBC 15-20 [facility] Comment on above: Order Comment: Urina lysis Microscopic order added on by [employer] system. Performed By: #### 1 [id number], 95336524, [id number] #### [facility] (DEFAULT) [address] [place] [address] UA w Culture if Ind Standard on 09-01-2019 Breakpoint UA [facility] Comment on above: Performed By: #### 1 [id number], 04749579, 3693961 #### [facility] (DEFAULT) [address] [place] [address] Color (U) Yellow [facility] Comment on above: Performed By: #### 1 [id number], 50253842, [id number] #### [facility] (DEFAULT) [address] [place] [address] Culture? Yes Normal [facility] Comment on above: Performed By: #### 1 [id number], 85541747, 5984809 #### [facility] (DEFAULT) [address] [place] [address] Glucose (U) [Mass/Vol] Negative [facility] Comment on above: Performed By: #### 1 [id number], 01677512, 0110235 #### [facility] (DEFAULT) [address] [place] [address] Ketones Ql (U) Negative [facility] Comment on above: Performed By: #### 1 [id number], 61452256, [id number] #### [facility] (DEFAULT) [address] [place] [address] Micro? Indicated [facility] Comment on above: Performed By: #### 1 [id number], 02773345, 1197804 #### [facility] (DEFAULT) [address] [place] [address] 66434 UA Bilirubin Negative Normal [facility] Comment on above: Performed By: #### 1 [id number], 81582237, 8521599 #### [facility] (DEFAULT) [address] [place] [address] 30062 UA Blood TRACE Abnormal NEGATIVE [facility] Comment on above: Performed By: #### 1 [id number], 06550134, 9109821 #### [facility] (DEFAULT) [address] [place] [address] 96891 UA Clarity CLEAR Normal CLEAR [facility] Comment on above: Performed By: #### 1 [id number], 83647860, 0480701 #### [facility] (DEFAULT) [address] [place] [address] 17952 UA Leuk Est MODERATE Abnormal NEGATIVE [facility] Comment on above: Performed By: #### 1 [id number], 16183242, 4780464 #### [facility] (DEFAULT) [address] [place] [address] 48412 UA Nitrite Positive Abnormal NEGATIVE [facility] Comment on above: Performed By: #### 1 [id number], 13855593, 0525161 #### [facility] (DEFAULT) [address] [place] [address] 62436 UA pH 5.5 Normal 5-8 [facility] Comment on above: Performed By: #### 1 [id number], 53849175, 4590636 #### [facility] (DEFAULT) [address] [place] [address] 95846 UA Protein Negative Normal NEGATIVE [facility] Comment on above: Performed By: #### 1 684151851, 29527884, 6015295 #### [facility] (DEFAULT) [address] [place] [address] 81286 UA Spec Grav 1.025 Normal 1.001-1.03 5 [facility] Comment on above: Performed By: #### 1 [id number], 90303625, 4778517 #### [facility] (DEFAULT) [address] [place] [address] UA Urobilinogen 0.2 mg/dL Normal 0.2-1.0 [facility] Comment on above: Performed By: #### 1 [id number], 51969941, 4928329 #### [facility] (DEFAULT) [address] [place] [address] 10955 Urine Source Clean Catch Normal [facility] Comment on above: Performed By: #### 1 [id number], 22216264, 9450566 #### [facility] (DEFAULT) [address] [place] [address] 83888 JOINT PAIN INJECTIONon 09-06 JOINT PAIN INJECTION [facility] Department of Radiology [address] [place] [id number] Patient Name: DELICIA HSU : 1935 Sex: F Age: Race: White Pt. Location: Patient Status: D Ordered Date: 08/08/2018 3:50:00 PM Completed Date: 09/06/2018 03:43 PM Requesting Provider: HERMELINDO HILLMAN Attending Provider: HERMELINDO HILLMAN Report Copy To: GYPSY MCMAHON Signs & Symptoms: M16.12 Unilateral primary osteoarthritis, left hip I10 History: Vidor Comments: , Dr. Ochoa , Body Part: [...] guidance. Electronically signed by:Christy Ochoa. Transcribed by: [email or web address], User Resident: Electronically Signed by: CHRISTY OCHOA @ 09/09/2018 05:57 PM Normal [facility] Comment on above: Order Comment: , Dr. Ochoa , Body Part: Hip , Side: LEFT , Dr. Ochoa , Body Part: Hip , Side: LEFT , , , Ordering Provider - HERMELINDO HILLMAN MD , CT 3D LOWER EXTREMITY WO CON TRAST LEFTon 08-02-2018 CT 3D LOWER EXTREMITY WO CONTRAST LEFT [facility] Department of Radiology [address] [place] [address] Patient Name: DELICIA SHU : 1935 Sex: F Age: Race: White Pt. 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 MEDICARE NO PC REQ [...] arthritis. Electronically signed by:Coy Jerome. Transcribed by: [email or web address], User Resident: Electronically Signed by: COY JEROME @ 08/08/2018 02:20 PM Normal [facility] Comment on above: Order Comment: , Jessie perkins left hip healing HIP LEFT 1 OR 2 VWS WITH PEL VISon 03-18-2018 HIP LEFT 1 OR 2 VWS WITH PELVIS [facility] Department of Radiology [address] [place] [id number] Patient Name: DELICIA HSU : 1935 Sex: F Age: Race: White Pt. 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 Transcribed by: [email or web address], User Resident: Electronically Signed by: COY JEROME @ 03/18/2018 02:19 PM Normal [facility] Comment on above: Order Comment: , , = ========= , Ordering Provider - MIRTHA VELÁSQUEZ PA-C , HIP LEFT 1 OR 2 VWS WITH PEL VISon 01-10-2018 HIP LEFT 1 OR 2 VWS WITH PELVIS [facility] Department of Radiology [address] [place] [address] Patient Name: DELICIA HSU : 1935 Sex: F Age: Race: White Pt. 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 Electronically signed by:Manjit Whatley. Transcribed by: [email or web address], User Resident: Electronically Signed by: MANJIT WHATLEY @ 01/10/2018 04:38 PM Normal [facility] Comment on above: Order Comment: , Vie ws (X-RAY, HIP): Radiologic Protocol , Views (X-RAY, HIP): Radiologic Protocol , , , Ordering Provider - MIRTHA VELÁSQUEZ PA-C , HIP LEFT 1 OR 2 VWS WITH PEL VISon 11-01-2017 HIP LEFT 1 OR 2 VWS WITH PELVIS [facility] Department of Radiology [address] [place] [id number] Patient Name: DELICIA HSU : 1935 Sex: F Age: Race: White Pt. 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 Electronically signed by:Gerson Rodriguez. Transcribed by: [email or web address], User Resident: Electronically Signed by: GERSON RODRIGUEZ @ 11/01/2017 03:25 PM Normal [facility] Comment on above: Order Comment: , Carmella ws (X-RAY, HIP): Radiologic Protocol , Views (X-RAY, HIP): Radiologic Protocol , , , Ordering Provider Brennan VELÁSQUEZ PA-C , HIP LEFT 1 OR 2 VWS WITH PEL VISon 09-21-2017 HIP LEFT 1 OR 2 VWS WITH PELVIS [facility] Department of Radiology [address] [place] [id number] Patient Name: DELICIA HSU : 1935 Sex: F Age: Race: White Pt. 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 Transcribed by: [email or web address], User Resident: Electronically Signed by: COY JEROME @ 09/21/2017 03:27 PM [place] [facility] Comment on above: Order Comment: , , = ========= , Ordering Rebeka VELÁSQUEZ PA-C , Vital Signs Date Time Vital Sign Value Performing Clinician Facility 02-25-2023 10:15-0500 Body height 175.26 cm MD Jacinto Max Work Phone: [facility] 02-25-2023 10:15-0500 Body weight 59.1 kg MD Jacinto Max Work Phone: [facility] 02-25-2023 10:02-0500 Diastolic blood pressure 74 mm[Hg] MD Jacinto Max Work Phone: [facility] 02-25-2023 10:02-0500 Heart rate 67 /min MD Jacinto Max Work Phone: [facility] 02-25-2023 10:02-0500 Systolic blood pressure 157 mm[Hg] MD Jacinto Max Work Phone: [facility] 02-18-2023 14:00-0500 Body height 167.64 cm Jacinto Max Other [employer] Other 02-18-2023 14:00-0500 Body mass index (BMI) [Ratio] 20.66 kg/m2 Jacinto Max Other [employer] Other 02-18-2023 14:00-0500 Body temperature 97.2 [degF] Jacinto Max Other [employer] Other 02-18-2023 14:00-0500 Body weight 58.06 kg Jacinto Max Other [employer] Other 02-18-2023 14:00-0500 Diastolic blood pressure 66 mm[Hg] Jacinto Max Other [employer] Other 02-18-2023 14:00-0500 Systolic blood pressure 150 mm[Hg] Jacinto Max Other [employer] Other 02-16-2023 13:30-0500 Body height 167.64 cm Gypsy Mcmahon Other [employer] Other 02-16-2023 13:30-0500 Body mass index (BMI) [Ratio] 20.66 kg/m2 Gypsy Mcmahon Other [employer] Other 02-16-2023 13:30-0500 Body weight 58.06 kg Gypsy Mcmahon Other [employer] Other 02-16-2023 13:30-0500 Diastolic blood pressure 68 mm[Hg] Gypsy Mcmahon Other [employer] Other 02-16-2023 13:30-0500 SaO2% (BldA) [Mass fraction] 96 % Gypsy Mcmahon Other [employer] Other 02-16-2023 13:30-0500 Systolic blood pressure 140 mm[Hg] Gypsy Mcmahon Other [employer] Other 01-29-2023 11:26-0500 Heart rate 75 /min MALATHI DEB [facility] 01-29-2023 11:26-0500 SaO2% (BldA) [Mass fraction] 95 % MALATHI DEB [facility] 01-29-2023 11:26-0500 Respiratory rate 16 /min MALATHI DEB [facility] 01-29-2023 11:25-0500 Diastolic blood pressure 83 mm[Hg] MALATHI DEB [facility] 01-29-2023 11:25-0500 Mean blood pressure 108 mm[Hg] MALATHI DEB [facility] 01-29-2023 11:25-0500 Systolic blood pressure 158 mm[Hg] MALATHI DEB [facility] 01-29-2023 11:25-0500 Body temperature 98.06 [degF] MALATHI DEB [facility] 01-29-2023 10:54-0500 Heart rate 74 /min MALATHI DEB [facility] 01-29-2023 10:54-0500 SaO2% (BldA) [Mass fraction] 97 % MALATHI DEB [facility] 01-29-2023 10:54-0500 Respiratory rate 16 /min MALATHI DEB [facility] 01-29-2023 10:53-0500 Body temperature 97.52 [degF] MALATHI DEB [facility] 01-29-2023 10:53-0500 Diastolic blood pressure 84 mm[Hg] MALATHI DEB [facility] 01-29-2023 10:53-0500 Mean blood pressure 104 mm[Hg] MALATHI DEB [facility] 01-29-2023 10:53-0500 Systolic blood pressure 146 mm[Hg] MALATHI DEB [facility] 01-12-2023 13:30-0500 Body height 167.64 cm Hunter Brown Other [employer] Other 01-12-2023 13:30-0500 Body mass index (BMI) [Ratio] 22 kg/m2 Hunter Brown Other [employer] Other 01-12-2023 13:30-0500 Body weight 61.83 kg Hunter Brown Other [employer] Other 01-12-2023 13:30-0500 Diastolic blood pressure 60 mm[Hg] Hunter Brown Other [employer] Other 01-12-2023 13:30-0500 Systolic blood pressure 137 mm[Hg] Hunter Brown Other [employer] Other 01-05-2023 11:30-0500 Body height 167.64 cm Gypsy Mcmahon Other [employer] Other 01-05-2023 11:30-0500 Body mass index (BMI) [Ratio] 21.63 kg/m2 Gypsy Mcmahon Other [employer] Other 01-05-2023 11:30-0500 Body weight 60.78 kg Gypsy Mcmahon Other [employer] Other 01-05-2023 11:30-0500 Diastolic blood pressure 72 mm[Hg] Gypsy Mcmahon Other [employer] Other 01-05-2023 11:30-0500 Systolic blood pressure 162 mm[Hg] Gypsy Mcmahon Other [employer] Other 12-28-2022 13:30-0500 Body height 167.64 cm Malathi Velázquez Other [employer] Other 12-28-2022 13:30-0500 Body mass index (BMI) [Ratio] 19.98 kg/m2 Malathi Velázquez Other [employer] Other 12-28-2022 13:30-0500 Body weight 56.16 kg Malathi Velázquez Other [employer] Other 12-28-2022 13:30-0500 Diastolic blood pressure 78 mm[Hg] Malathineha Velázquez Other [employer] Other 12-28-2022 13:30-0500 Systolic blood pressure 146 mm[Hg] Malathi Melania Other [employer] Other 12-15-2022 11:15-0500 Body height 167.64 cm Gypsy Mcmahon Other [employer] Other 12-15-2022 11:15-0500 Body mass index (BMI) [Ratio] 21.53 kg/m2 Gypsy Mcmahon Other [employer] Other 12-15-2022 11:15-0500 Body weight 60.51 kg Gypsy Mcmahon Other [employer] Other 12-15-2022 11:15-0500 Diastolic blood pressure 73 mm[Hg] Gypsy Mcmahon Other [employer] Other 12-15-2022 11:15-0500 Systolic blood pressure 178 mm[Hg] Gypsy Mcmahon Other [employer] Other 09-22-2022 14:14-0400 Blood Pressure Location MALTAHI VIEIRA [facility] 09-22-2022 14:14-0400 Diastolic blood pressure 90 mm[Hg] MALATHI VIEIRA [facility] 09-22-2022 14:14-0400 Heart rate 78 /min MALATHI VIEIRA [facility] 09-22-2022 14:14-0400 Systolic blood pressure 142 mm[Hg] MALATHI VIEIRA [facility] 09-01-2022 14:15-0400 Body height 167.64 cm Gypsy Mcmahon Other [employer] Other 09-01-2022 14:15-0400 Body mass index (BMI) [Ratio] 21.14 kg/m2 Gypsy Mcmahon Other [employer] Other 09-01-2022 14:15-0400 Body weight 59.42 kg Gypsy Mcmahon Other [employer] Other 09-01-2022 14:15-0400 Diastolic blood pressure 56 mm[Hg] Gypsy Mcmahon Other [employer] Other 09-01-2022 14:15-0400 Systolic blood pressure 132 mm[Hg] Gypsy Mcmahon Other [employer] Other 06-09-2022 13:42-0400 Diastolic blood pressure 71 mm[Hg] Marvin KWON [facility] 06-09-2022 13:42-0400 Heart rate 59 /min Marvin KWON [facility] 06-09-2022 13:42-0400 Systolic blood pressure 183 mm[Hg] Marvin KWON [facility] 04-24-2022 11:30-0400 Body height 167.64 cm Hunter Brown Other [employer] Other 04-24-2022 11:30-0400 Body mass index (BMI) [Ratio] 22.11 kg/m2 Hunter Brown Other [employer] Other 04-24-2022 11:30-0400 Body weight 62.14 kg Hunter Brown Other [employer] Other 04-24-2022 11:30-0400 Diastolic blood pressure 70 mm[Hg] Hunter Brown Other [employer] Other 04-24-2022 11:30-0400 Systolic blood pressure 159 mm[Hg] Hunter Brown Other [employer] Other 04-07-2022 14:15-0500 Body height 167.64 cm Gypsy Mcmahon Other [employer] Other 04-07-2022 14:15-0500 Body mass index (BMI) [Ratio] 21.79 kg/m2 Gypsy Mcmahon Other [employer] Other 04-07-2022 14:15-0500 Body weight 61.24 kg Gypsy Mcmahon Other [employer] Other 04-07-2022 14:15-0500 Diastolic blood pressure 62 mm[Hg] Gypsy Mcmahon Other [employer] Other 04-07-2022 14:15-0500 Systolic blood pressure 130 mm[Hg] Gypsy Mcmahon Other [employer] Other 03-11-2022 13:35-0500 Body temperature 97.5 [degF] MD Gypsy Mcmahon Work Phone: [facility] 03-11-2022 13:35-0500 Diastolic blood pressure 61 mm[Hg] MD Gypsy Mcmahon Work Phone: [facility] 03-11-2022 13:35-0500 Heart rate 60 /min MD Gypsy Mcmahon Work Phone: [facility] 03-11-2022 13:35-0500 Respiratory rate 18 /min MD Gypsy Mcmahon Work Phone: [facility] 03-11-2022 13:35-0500 SaO2% (BldA) [Mass fraction] 96 % MD Gypsy Mcmahon Work Phone: [facility] 03-11-2022 13:35-0500 Systolic blood pressure 135 mm[Hg] MD Gypsy Mcmahon Work Phone: [facility] 02-16-2022 10:45-0500 Body height 167.64 cm Gypsy Mcmahon Other [facility] [employer] Other 02-16-2022 10:45-0500 Body mass index (BMI) [Ratio] 21.46 kg/m2 Gypsy Mcmahon Other [facility] [employer] Other 02-16-2022 10:45-0500 Body weight 60.33 kg Gypsy Mcmahon Other [facility] [employer] Other 02-16-2022 10:45-0500 Diastolic blood pressure 70 mm[Hg] Gypsy Mcmahon Other [facility] [employer] Other 02-16-2022 10:45-0500 Systolic blood pressure 120 mm[Hg] Gypsy Mcmahon Other [employer] Other 02-11-2022 12:00-0500 Body height 172.72 cm Hunter Brown Other [employer] Other 02-11-2022 12:00-0500 Body mass index (BMI) [Ratio] 20.83 kg/m2 Hunter Brown Other [employer] Other 02-11-2022 12:00-0500 Body weight 62.14 kg Hunter Brown Other [employer] Other 02-11-2022 12:00-0500 Diastolic blood pressure 68 mm[Hg] Hunter Brown Other [employer] Other 02-11-2022 12:00-0500 Systolic blood pressure 144 mm[Hg] Hunter Brown Other [employer] Other 01-05-2022 10:30-0500 Body height 172.72 cm Hunter Brown Other [employer] Other 01-05-2022 10:30-0500 Body mass index (BMI) [Ratio] 22.04 kg/m2 Hunter Brown Other [employer] Other 01-05-2022 10:30-0500 Body weight 65.77 kg Hunter Brown Other [employer] Other 01-05-2022 10:30-0500 Diastolic blood pressure 78 mm[Hg] Hunter Brown Other [employer] Other 01-05-2022 10:30-0500 Systolic blood pressure 166 mm[Hg] Hunter Brown Other [employer] Other 03-27-2021 12:00-0500 Body height 172.72 cm Giana Griffiths Other [employer] Other 03-27-2021 12:00-0500 Body mass index (BMI) [Ratio] 22.96 kg/m2 Giana Griffiths Other [employer] Other 03-27-2021 12:00-0500 Body weight 68.49 kg Giana Griffiths Other [employer] Other 01-27-2021 10:45-0500 Body height 172.72 cm Giana Griffiths Other [employer] Other 01-27-2021 10:45-0500 Body mass index (BMI) [Ratio] 24.48 kg/m2 Giana Griffiths Other [employer] Other 01-27-2021 10:45-0500 Body weight 73.03 kg Giana Griffiths Other [employer] Other Encounters Encounter Date Encounter Type Care Provider Facility Start: 06-15-2023 ambulatory MALATHI Gonzalez ty:[facility] Start: 03-12-2023 End: 03-12-2023 ambulatory Jacinto Max Other [employer] Other Start: 03-12-2023 Telephone encounter Jacinto [facility] Start: 03-11-2023 End: 03-11-2023 ambulatory Jacinto Max Other [employer] Other Start: 03-11-2023 Telephone encounter Jacinto [facility] Start: 03-02-2023 End: 03-02-2023 ambulatory Gypsy Mcmahon Other [employer] Other Start: 03-02-2023 Telephone encounter Gypsy Mcmahon [facility] Start: 02-25-2023 End: 02-25-2023 ambulatory Jacinto Max Facility:[facility] Start: 02-25-2023 End: 02-25-2023 ambulatory MD Jacinto Max [facility] Work Phone: Start: 02-25-2023 End: 02-25-2023 Discharged Recurring MD Jacinto Max Work Phone: [facility] Work Phone: Start: 02-18-2023 End: 02-18-2023 ambulatory Jacinto Max Other [employer] Other Start: 02-18-2023 Office outpatient ne w 45 minutes Jacinto Max [facility] Infectious Disease Start: 02-18-2023 End: 02-18-2023 Patient encounter procedure MD Jacinto Max Work Phone: [facility] Infectious Disease Work Phone: Start: 02-16-2023 End: 02-16-2023 ambulatory Gypsy Mcmahon Other [employer] Other Start: 02-16-2023 Office outpatient visit 15 minutes Gypsy Mcmahon [facility] Start: 02-16-2023 End: 02-16-2023 Patient encounter procedure MD Jacinto Max Work Phone: [facility] Work Phone: Start: 01-29-2023 ambulatory MALATHI Gonzalez ty:[facility] Start: 01-29-2023 End: 01-29-2023 Patient encounter procedure MALATHI VIEIRA [facility] Start: 01-26-2023 End: 01-26-2023 Patient encounter procedure MALATHI VIEIRA [facility] Start: 01-26-2023 End: 01-27-2023 ambulatory MALATHI VIEIRA [facility] [employer] Other Start: 01-26-2023 Telephone encounter Hunter [facility] Start: 01-20-2023 End: 01-20-2023 ambulatory Hunetr Brown Other [employer] Other Start: 01-20-2023 Telephone encounter Hunter brady [facility] Gastroenterology Start: 01-12-2023 End: 01-12-2023 ambulatory Hunter Brown Other [employer] Other Start: 01-12-2023 Office outpatient visit 25 minutes Hunter Brown [facility] Gastroenterology Start: 01-12-2023 End: 01-12-2023 Patient encounter procedure MD Jacinto Max Work Phone: [facility] Gastroenterology Work Phone: Start: 01-11-2023 End: 01-11-2023 ambulatory Gypsy Mcmahon Other [employer] Other Start: 01-11-2023 Telephone encounter Gypsy Mcmahon [facility] Start: 01-05-2023 End: 01-05-2023 ambulatory Gypsy Mcmahon Other [employer] Other Start: 01-05-2023 Telephone encounter Gypsy Mcmahon [facility] Start: 01-05-2023 Transitional care manage srvc 14 day discharge Gypsy Mcmahon [facility] Start: 01-05-2023 End: 01-05-2023 Patient encounter procedure MD Jacinto Max Work Phone: [facility] Work Phone: Start: 12-30-2022 End: 12-30-2022 ambulatory Malathi Velázquez Other [employer] Other Start: 12-30-2022 Telephone encounter Malathi arias [facility] Start: 12-28-2022 End: 12-28-2022 ambulatory Malathi Velázquez Other [employer] Other Start: 12-28-2022 Office outpatient visit 15 minutes Malathi Velázquez [facility] Start: 12-28-2022 End: 12-28-2022 Patient encounter procedure MD Jacinto Max Work Phone: [facility] Work Phone: Start: 12-15-2022 End: 12-15-2022 ambulatory Gypsy Mcmahon Other [employer] Other Start: 12-15-2022 Office outpatient visit 15 minutes Gypsy Mcmahon [facility] Start: 12-15-2022 Telephone encounter Gypsy Mcmahon [facility] Start: 12-15-2022 End: 12-15-2022 Patient encounter procedure MD Jacinto Max Work Phone: [facility] Work Phone: Start: 11-11-2022 End: 11-11-2022 ambulatory AB [facility] Start: 10-29-2022 End: 10-29-2022 ambulatory Hunter Brown Facility:[facility] Start: 09-22-2022 End: 09-23-2022 ambulatory MALATHI VIEIRA Facility:[facility] Start: 09-22-2022 End: 09-22-2022 Patient encounter procedure MALATHI VIEIRA [facility] Start: 09-10-2022 End: 09-10-2022 ambulatory Jose G Ellington Other [employer] Other Start: 09-10-2022 Nursing evaluation o f patient and report Jose G Ellington [facility] Start: 09-08-2022 End: 09-08-2022 ambulatory Hunter Brown Other [employer] Other Start: 09-08-2022 Telephone encounter Hunter [facility] Start: 09-01-2022 End: 09-01-2022 ambulatory Gypsy Mcmahon Other [employer] Other Start: 09-01-2022 Office outpatient visit 15 minutes Gypsy Mcmahon [facility] Start: 08-27-2022 End: 08-27-2022 ambulatory Gypsy Mcmahon Other [employer] Other Start: 08-27-2022 Telephone encounter Gypsy Mcmahon [facility] Start: 06-30-2022 End: 06-30-2022 ambulatory EHAB [facility] Start: 06-09-2022 End: 06-10-2022 ambulatory Marvin KWON Facility:[facility] Start: 06-09-2022 End: 06-09-2022 Patient encounter procedure Marvin KWON [facility] Start: 05-27-2022 End: 05-28-2022 ambulatory MALATHI VIEIRA Facility: Start: 05-19-2022 End: 05-20-2022 ambulatory GYPSY MCMAHON Facility:[facility] Start: 05-19-2022 End: 05-19-2022 Patient encounter procedure MALATHI VIEIRA [facility] Start: 05-14-2022 End: 05-14-2022 ambulatory Gypsy Mcmahon Other [employer] Other Start: 05-14-2022 Telephone encounter Gypsy Mcmahon [facility] Start: 05-11-2022 End: 05-12-[address] GYPSY MCMAHON Facility:[facility] Start: 05-01-2022 (Televisit) Televisit Gypsy Evangelista [facility] Start: 05-01-2022 End: 05-01-2022 ambulatory Gypsy Mcmahon Other [employer] Other Start: 05-01-2022 Telephone encounter Gypsy Mcmahon [facility] Start: 04-28-2022 End: 04-29-[address] GYPSY MCMAHON Facility:[facility] Start: 04-24-2022 End: 04-24-2022 ambulatory Hunter Brown Other [employer] Other Start: 04-24-2022 Office outpatient visit 15 minutes Hunter Brown [facility] Gastroenter[facility] Start: 04-20-2022 ambulatory Marvin KWON Facility :[facility] Start: 04-16-2022 End: 04-16-2022 ambulatory Gypsy Mcmahon Other [employer] Other Start: 04-16-2022 Telephone encounter Gypsy Mcmahon [facility] Start: 04-14-2022 End: 04-14-[address] GYPSY MCMAHON Facility:[facility] Start: 04-07-2022 End: 04-07-2022 ambulatory Gypsy Mcmahon Other [employer] Other Start: 04-07-2022 Office outpatient visit 15 minutes Gypsy Mcmahon [facility] Start: 04-03-2022 End: 04-03-2022 ambulatory Gypsy Mcmahon Other [employer] Other Start: 04-03-2022 Telephone encounter Gypsy Mcmahon [facility] Start: 03-30-2022 End: 03-30-2022 ambulatory Gypsy Mcmahon Facility:[facility] Start: 03-30-2022 End: 03-30-2022 Departed Referred MD Gypsy Mcmahon Work Phone: [facility] [place] Work Phone: Start: 03-30-2022 End: 03-30-2022 ambulatory MD Gypsy Mcmahon Work Phone: [facility] Work Phone: Start: 03-30-2022 Nursing evaluation o f patient and report Gypsy Mcmahon [facility] Start: 03-20-2022 End: 03-21-[address] GYPSY MCMAHON Facility:[facility] Start: 03-19-2022 End: 03-19-2022 ambulatory Hunter Brown Other [employer] Other Start: 03-19-2022 Telephone encounter Hunter brady [facility] Start: 03-11-2022 Registered Recurring MD Gypsy Mcmahon Work Phone: [facility] Work Phone: Start: 02-23-2022 End: 02-24-[address] GYPSY MCMAHON Facility:[facility] Start: 02-19-2022 End: 02-19-2022 ambulatory Gypsy Mcmahon Other [employer] Other Start: 02-19-2022 Telephone encounter Gypsy Mcmahon [facility] Start: 02-17-2022 End: 02-18-[address] GYPSY MCMAHON Facility:[facility] Start: 02-16-2022 End: 02-16-2022 ambulatory Gypsy Mcmahon Other [employer] Other Start: 02-16-2022 Office outpatient visit 15 minutes Gypsy Mcmahon [facility] Start: 02-16-2022 End: 02-16-2022 Departed Referred MD Gypsy Mcmahon Work Phone: [facility] [place] Work Phone: Start: 02-11-2022 End: 02-11-2022 ambulatory Hunter Brown Other [employer] Other Start: 02-11-2022 Office outpatient visit 15 minutes Hunter Brown [facility] Start: 02-11-2022 Telephone encounter Hunter brady [facility] Start: 01-26-2022 End: 01-27-[address] GYPSY MCMAHON Facility:[facility] Start: 01-15-2022 End: 01-16-[address] GYPSY MCMAHON Facility:[facility] Start: 01-06-2022 End: 01-06-2022 ambulatory Hunter Brown Other [employer] Other Start: 01-06-2022 Telephone encounter Hunter brady [facility] Start: 01-05-2022 End: 01-06-2022 ambulatory CLAU Shrestha [facility] [employer] Other Start: 01-05-2022 Office outpatient visit 25 minutes Hunter Brown [facility] Start: 12-27-2021 End: 12-27-[address] REY MONTGOMERY Facility:[facility] Start: 12-18-2021 End: 12-19-2021 [facility] Start: 12-08-2021 End: 12-09-[address] GYPSY MCMAHON Facility:[facility] Start: 11-18-2021 End: 11-18-2021 ambulatory Hunter Brown Other [employer] Other Start: 11-18-2021 Telephone encounter Hunter brady [...] 08-18-2021 End: 08-18-2021 ambulatory Giana Griffiths Other [employer] Other Start: 08-18-2021 Telephone encounter Giana Griffiths [facility] Start: 08-12-2021 End: 08-12-[address] GYPSY MCMAHON Facility:[facility] Start: 04-22-2021 End: 04-22-2021 ambulatory Giana Griffiths Other [employer] Other Start: 04-22-2021 Telephone encounter Giana Griffiths [facility] Start: 03-27-2021 End: 03-27-2021 ambulatory Giana Griffiths Other [employer] Other Start: 03-27-2021 Office outpatient visit 25 minutes Giana Griffiths [facility] Start: 01-27-2021 End: 01-27-2021 ambulatory Giana Griffiths Other [employer] Other Start: 01-27-2021 Office outpatient visit 25 minutes Giana Griffiths [facility] Start: 01-27-2021 Telephone encounter Giana Griffiths [facility] G[facility] Procedures Date Procedure Procedure Detail Performing Clinician Start: 06-09-2022 Cystoscopy Marvin BOB Start: 02-16-2022 Piperacillin/tazobactam Gypsy Mcmahon Other Start: 02-16-2022 Urine culture MD Gypsy Mcmahon Work Phone: Start: 03-24-2012 Hernia of abdominal cavity (disorder) MALATHI VIEIRA Start: 10-07-2009 Cystoscopy MALATHI Leonarda SPARROW Start: 09-12-2009 Introduction of tens ion [...] 03-30-2022 Bacteria identified in Urine by Culture [facility] Immunizations Immunization Date Immunization Notes Care Provider Bob guzmanrabia 02-16-2022 Shingrix 50 MCG/0.5M L; 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: [Shingrix 50 MCG/0.5ML] Hunter Brown Other [place] [employer] Other 01-15-2022 influenza virus vaccine, unspecified formulation MALATHI VIEIRA [facility] 01-15-2022 SARS-CoV-2 (COVID-19 ) [id number] MALATHI VIEIRA [facility] 01-23-2021 SARS-CoV-2 (COVID-19 ) mRNA BNT-162b2 vax MALATHI DEB [facility] 01-06-2021 influenza virus vaccine, unspecified formulation MALATHI DEB [facility] 03-27-2020 SARS-CoV-2 (COVID-19 ) mRNA BNT-162b2 vax MALATHI DEB [facility] 03-04-2020 SARS-CoV-2 (COVID-19 ) mRNA BNT-162b2 vax MALATHI DEB [facility] 12-06-2019 influenza virus vaccine, unspecified formulation MALATHI DEB [facility] 12-14-2018 influenza virus vaccine, unspecified formulation MALATHI DEB [facility] 02-02-2018 influenza virus vaccine, unspecified formulation MALATHI DEB [facility] 11-08-2017 pneumococcal polysaccharide vaccine, 23 valent MALATHI DEB [facility] 11-02-2017 influenza virus vaccine, unspecified formulation MALATHI DEB [facility] 12-09-2016 influenza virus vaccine, unspecified formulation MALATHI DEB [facility] 12-02-2016 influenza virus vaccine, unspecified formulation MALATHI DEB [facility] 12-17-2015 influenza virus vaccine, unspecified formulation MALATHI DEB [facility] 10-10-2015 influenza virus vaccine, unspecified formulation MALATHI DEB [facility] 11-19-2014 influenza virus vaccine, unspecified formulation MALATHI DEB [facility] 11-09-2014 pneumococcal polysaccharide vaccine, 23 valent MALATHI DEB [facility] NEGATED: Highlighted row has not occurred!01-26-2023 influenza virus vaccine, unspecified formulation MALATHI DEB [facility] Payers Date Payer Category Payer Self-pay [id number] 1958 [facility] [id number] 1958 Medicare [id number] 2.1 [id number] 1936 Unknown [id number] 2.16.84 0.1.320196.3.579.2.593 1936 Unknown [id number] 2.16.84 0.1.571789.3.579.2.593 1936 Unknown [id number] 2.16.84 0.1.478505.3.579.2.593 1936 Unknown [id number] 2.16.84 0.1.786328.3.579.2.593 1936 Unknown [id number] 2.16.84 0.1.423869.3.579.2.593 1936 Unknown [id number] 2.16.84 0.1.716298.3.579.2.593 1936 Unknown [id number] 2.16.84 0.1.124300.3.579.2.593 1936 Unknown [id number] 2.16.84 0.1.759430.3.579.2.593 1936 Unknown [id number] 2.16.84 0.1.228466.3.579.2.593 1936 Unknown [id number] 2.16.84 0.1.971627.3.579.2.593 1936 Unknown [id number] 2.16.84 0.1.006803.3.579.2.593 1936 Unknown [id number] 2.16.84 0.1.239722.3.579.2.593 1936 Unknown [id number] 2.16.84 0.1.333970.3.579.2.593 1936 Unknown [id number] 2.16.84 0.1.523288.3.579.2.593 1936 Unknown [id number] 2.16.84 0.1.907979.3.579.2.593 1936 Unknown [id number] 2.16.84 0.1.359691.3.579.2.593 1936 Unknown [id number] 2.16.84 0.1.791153.3.579.2.593 1936 Unknown [id number] 2.16.84 0.1.556375.3.579.2.593 1936 Unknown [id number] 2.16.84 0.1.724822.3.579.2.593 1936 Unknown [id number] 2.16.84 0.1.848223.3.579.2.593 1936 Unknown [id number] 2.16.84 0.1.399430.3.579.2.593 1936 Unknown [id number] 2.16.8 40.1.568602.3.579.2.727 1936 Unknown [id number] 2.16.8 40.1.236678.3.579.2.727 1936 Unknown [id number] 2.16.8 40.1.877431.3.579.2.727 1936 Unknown [id number] 2.16.8 40.1.823927.3.579.2.727 1936 Unknown [id number] 2.16.8 40.1.740425.3.579.2.727 1936 Unknown [id number] 2.16.8 40.1.858722.3.579.2.727 1936 Unknown [id number] 2.16.8 40.1.631023.3.579.2.727 Unknown [id number] 2.16.8 40.1.597384.3.579.2.531 Unknown [id number] 2.16.8 40.1.997639.3.579.2.531 Unknown [id number] 2.16.8 40.1.798332.3.579.2.531 Social History Date Type Detail Facility Unknown if ever smoked [facility] Other Sex Assigned At [facility] Start: 1935 Sex Assigned At Female F [facility] Start: 05-19-2022 End: 06-09-2022 Tobacco smoking status Ex-smoker (finding) [facility] Start: 09-22-2022 Tobacco smoking status Never [facility] Functional Status Date Assessment Result Facility 01-26-2023 Functional Status N/A [facility] 09-22-2022 Functional Status N/A [facility] 06-09-2022 Functional Status N/A 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 Preventative measures were discussed. Vitamin C czyb-qmm-gfysglb recommended as well as topical Thera workx [...] n due to immunosuppression (ICD-10 - Z91.89) [facility] Other 01-09-2024 Evaluation note* Encounter Date Diagnosis [...] pain. Feb, Pain, unspecified (ICD-10 - R52) [facility] Other 12-19-2023 Hospital Discharge instructions Patient Education 01/26/2023 16:05:17 Urinary Tract Infection, Adult, Smph-pg-Yiva Urinary Tract Infection, Adult A urinary tract [...] Follow these instructions at home: Medicines Take ddyr-sba-kczsijw and prescription medicines only as told by [...] provider. Document Revised: 09/06/2020 Document Reviewed: 09/06/2020 [employer] Patient Education 2022 Zevia. Follow Up Care 06/09/2022 14:50:19 With:DEB ZAZUETA, MALATHI Olvera, URL Address: [address] [place] [address] [phone] When: Unknown Comments:f/u in Spring [facility] 12-13-2023 Evaluation note* Encounter Date Diagnosis Assessment Notes Treatment Notes Treatment Clinical Notes Jan, Diarrhea (ICD-10 - R19.7) [facility] Other 12-05-2023 Evaluation note* Encounter Date Diagnosis [...] a day, we will re-test for C-diff [facility] Other 11-28-2023 Evaluation note* Encounter Date Diagnosis Assessment Notes Treatment Notes Treatment Clinical Notes Dec, Clostridium difficile colitis (ICD-10 - A04.72) Finish meds as prescribed. (cipro, Flagyl) Followup w Dr. Brown as scheduled. Understands the c diff could recur. Followup as needed Discussed good nutrition and healthy diet. [facility] Other 11-20-2023 Evaluation note* Encounter Date Diagnosis Assessment Notes Treatment Notes Treatment Clinical Notes Dec, Diarrhea, unspecified type (ICD-10 - R19.7) Pt appears to be having secondary from viral infection. There is no abdominal pain on exam and pt is afebrile which is reassuring. C. diff infection is a possibility as she was recently treated [facility] for a UTI, will check [...] Pt understands and agrees with the plan. [facility] Other 11-07-2023 Evaluation note* Encounter Date Diagnosis Assessment Notes Treatment Notes Treatment Clinical Notes Dec, Frequent UTI (ICD-10 - N39.0) [facility] Other 11-07-2023 Evaluation note* Encounter Date Diagnosis [...] w Dr. Licea today. Consider PT at [facility] or [facility] Chief Complaint: Patient [...] Rfl: miscellaneous medical supply (Blood Pressure Cuff) misc, 1 kit in the morning and at [...] veins Hypertension - Uncon (more content not included)...[facility]08-15-2023 Hospital Discharge instructions Patient Education 09/22/2022 15:32:53 Urinary Tract Infection, Adult, Rrzu-ys-Zzsp Urinary Tract Infection, Adult A urinary tract [...] Follow these instructions at home: Medicines Take tbod-iek-kofrdej and prescription medicines only as told by [...] provider. Document Revised: 09/06/2020 Document Reviewed: 09/06/2020 [employer] Patient Education 2022 Zevia. Follow Up Care 09/22/2022 10:38:22 With:DEB ZAZUETA, MALATHI Olvera, URL Address: [address] [place] [address] When: Unknown [facility] Tatyana 08-03-2023 Evaluation note* Encounter Date Diagnosis Assessment Notes Treatment Notes Treatment Clinical Notes Sep, Dysuria (ICD-10 - R30.0) [facility] Other 08-01-2023 Evaluation note* Encounter Date Diagnosis Assessment Notes Treatment Notes Treatment Clinical Notes Sep, Microscopic colitis, unspecified microscopic colitis type (ICD-10 - K52.839) [facility] Other 07-25-2023 Evaluation note* Encounter Date Diagnosis Assessment Notes Treatment Notes Treatment Clinical Notes Aug, Frequent UTI (ICD-10 - N39.0) Continue estrogen cream. Review with Urology on her followup appt. Discussed causes of UTIs Aug, Lymphocytic colitis (ICD-10 - K52.832) Improved with GI at [facility]. 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 Barry. Reviewed medications and explained their purpose. [facility] Other 07-20-2023 Evaluation note* Encounter Date Diagnosis Assessment Notes Treatment Notes Treatment Clinical Notes Aug, Recurrent UTI (ICD-10 - N39.0) [facility] Other 05-23-2023 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 Depending on the risk-benefit ratio will consider starting 1 or the other. She is on Zocor which is not ideal. If her cholesterol is not controlled, would suggest switching her to 40 mg of Lipitor or 20 mg of Crestor. Follow-up in 6 months or sooner should problems arise or her stress test revealed ischemia Jake Barry MD, MPH, [facility], [facility], [facility] Interventional Cardiology Pager Email: [email or web address]05-02-2023 Hospital Discharge instructions Patient Education 06/09/2022 14:15:56 Urinary Tract Infection, Adult, Ezzk-we-Qaul Urinary Tract Infection, Adult A urinary tract [...] Follow these instructions at home: Medicines Take bmsk-jdo-hsucadk and prescription medicines only as told by [...] provider. Document Revised: 09/06/2020 Document Reviewed: 09/06/2020 [employer] Patient Education 2022 Zevia. Follow Up Care 06/01/2022 10:03:13 With:CHER KRISHNAN, Marvin Camacho, URL Address: [facility] [address] , [place] [phone] When:10/10/2022 [facility] Tara 04-11-2023 NoteChief Complaint Referral *Recurrent UTI [...] anesthesia. 2. Feeling o (more content not included)...[facility]Result Comment: Electronically Signed By: MALATHI VIEIRA PA-C\.br\Date and Time Signed: 05/19/2313:49 EDT\.br\Electronically Co-Signed By: Ela Smith\.br\Date and Time Co-Signed: 05/19/22 14:40 [id number] Hospital Discharge instructions Patient Education 05/19/2022 14:16:45 [...] Treatment for this condition includes: Antibiotic medicine. Fifz-kbj-jmejaex medicines to treat discomfort. Drinking enough water [...] Follow these instructions at home: Medicines Take ezpf-eoo-njwudhd and prescription medicines only as told by [...] 11/04/2005 Document Revised: 01/12/2019 Document Reviewed: 08/04/2018 [employer] Patient Education 2020 Zevia. Follow Up Care 04/20/2022 10:50:51 With:DEB ZAZUETA, MALATHI Olvera, URL Address: [address] [place] [address] When: Unknown [facility] [place] 04-06-2023 Evaluation note* Encounter Date Diagnosis Assessment Notes Treatment Notes Treatment Clinical Notes May, Frequent UTI (ICD-10 - N39.0) [facility] Other 03-24-2023 Evaluation note* Encounter Date Diagnosis [...] back this morning. antibiotic at her pharmacy. [facility] Other 03-17-2023 Evaluation note* Encounter Date Diagnosis Assessment Notes Treatment Notes Treatment Clinical Notes Apr, Lymphocytic colitis (ICD-10 - K52.832) Continue Entyvio as directed Continue Lotronex 0.5 mg 1/2 tablet daily Rto 4 months [facility] Other 03-09-2023 Evaluation note* Encounter Date Diagnosis Assessment Notes Treatment Notes Treatment Clinical Notes Apr, Acute cystitis without hematuria (ICD-10 - N30.00) [facility] Other 02-28-2023 Evaluation note* Encounter Date Diagnosis Assessment Notes Treatment Notes Treatment Clinical Notes Mar, Recurrent UTI (ICD-10 - N39.0) Discussed options. Will try estrogen cream for vaginal health. Denies personal history of female cancers. Will also set up w Urology Mar, Colitis (ICD-10 - K52.9) Further treatment with Dr. Brown w appt on 04/24 [facility] Other 02-20-2023 Evaluation note* Encounter Date Diagnosis Assessment Notes Treatment Notes Treatment Clinical Notes Mar, Dysuria (ICD-10 - R30.0) [facility] Other 01-09-2023 Evaluation note* Encounter Date Diagnosis Assessment Notes Treatment Notes Treatment Clinical Notes Feb, Acute cystitis without hematuria (ICD-10 - N30.00) Sent to [facility] for urine culture - will treat based on results. Feb, Encounter for immunization (ICD-10 - Z23) Feb, Microscopic colitis, unspecified microscopic colitis type (ICD-10 - K52.839) Keep appt w Dr. Brown. Discussed boost or other supplement to gain weight Feb, Gastric ulcer (ICD-10 - K25.9) Encouraged her to continue pantoprazole [facility] Other 01-04-2023 Evaluation note* Encounter Date Diagnosis Assessment Notes Treatment Notes Treatment Clinical Notes Feb, Lymphocytic colitis (ICD-10 - K52.832) Start Entyvio infusions every 8 weeks Continue Budesonide, Alosetron, Imodium, and Pepto for now until starting Entyvio. Pt to keep record of bowel movements - how many and consistency Follow up in 2 months Feb, Fecal incontinence (ICD-10 - R15.9) [facility] Other 11-28-2022 Evaluation note* Encounter Date Diagnosis [...] Pantoprazole as prescribed Okay to stop Sucralfate [facility] Other 09-25-2022 NoteOPERATIVE NOTE OPERATION DATE: 11/04/2021 [...] was taken to PACU in good condition.[facility] 03-27-2021 Evaluation note* Encounter Date Diagnosis Assessment Notes Treatment Notes Treatment Clinical Notes Mar, Microscopic colitis, unspecified microscopic colitis type (ICD-10 - K52.839) INCREASE COLESTIPOL TO 4 TABS AT LUNCHTIME DAILY IF NOT IMPROVED ON HIGHER DOSE PT TO CALL ON 03/31 FOR ALTERNATIVE PLAN Mar, Irritable bowel syndrome with diarrhea (ICD-10 - K58.0) [facility] Other 12-20-2021 Evaluation note* Encounter Date Diagnosis Assessment Notes Treatment Notes Treatment Clinical Notes Jan, Microscopic colitis, unspecified microscopic colitis type (ICD-10 - K52.839) START COLESIPOL 2 PO DAILY CONTINUE BUDESONIDE WITHOUT CHANGE 3 PO Q AM AND MAYBE CONSIDERING STOP THIS IF COLESTIPOL IS WORKING ENOUGH TO CONTROL HER SYMPTOMS [facility] Other 12-20-2021 Evaluation note* Encounter Date Diagnosis Assessment Notes Treatment Notes Treatment Clinical Notes Jan, Microscopic colitis, unspecified microscopic colitis type (ICD-10 - K52.839) [facility] Other Evaluation + Plan note No data available for this section [facility] evaluation + Plan note Future Appointments Appointment Date:10/27/2022 01:00:00 PM Scheduled Provider:MALATHI VIEIRA PA-C Location:[facility] Appointment Type:URO Office Visit [facility] Evaluation + Plan note Future Appointments Appointment Date:12/29/2022 01:00:00 PM Scheduled Provider:MALATHI VIEIRA PA-C Location:[facility] Appointment Type:URO Office Visit [facility] evaluation + Plan note Future Appointments Appointment Date:06/15/2023 02:00:00 PM Scheduled Provider:MALATHI VIEIRA PA-C Location:[facility] Appointment Type:URO Office Visit [facility] evaluation + Plan note Future Appointments Appointment Date:01/30/2023 10:30:00 AM Scheduled Provider: Location:[facility] Appointment Type:ASU IV Antibiotic (FT) Appointment Date:01/31/2023 10:30:00 AM Scheduled Provider: Location:[facility] Appointment Type:ASU IV Antibiotic (FT) Appointment Date:02/01/2023 10:30:00 AM Scheduled Provider: Location[facility] Appointment Type:ASU IV Antibiotic (FT) Appointment Date:02/02/2023 10:30:00 AM Scheduled Provider: Location:[facility] Appointment Type:ASU IV Antibiotic (FT) Appointment Date:02/03/2023 10:30:00 AM Scheduled Provider: Location:[facility] Appointment Type:ASU IV Antibiotic (FT) Appointment Date:02/04/2023 10:30:00 AM Scheduled Provider: Location:[facility] Appointment Type:ASU IV Antibiotic (FT) Appointment Date:06/15/2023 02:00:00 PM Scheduled Provider:MALATHI VIEIRA PA-C Location:[facility]ointment Type:[facility] InformationNort Docea Power Other Evaluation noteNo assessment information available [facility] Work Phone: Hispylf general Narrative - Reported* Type Description Date Medical History HTN Medical History hyperlipidemia Medical History microscopic colitis Surgical History T&A Surgical History Quad by-pass Surgical History total hysterectomy Surgical History gall bladder Surgical History Cataracts Surgical History Right Knee Scope Surgical History Sphincterectomy Surgical History Left Rotator Scope Surgical History Hernia Repair 03/24/2012 Hospitalization History See Surgical Hx [facility] Other Hisccly general Narrative - Reported* Type Description Date [...] Hospitalization History See Surgical Hx Hospitalization History [facility] 12/2022 [facility] Other Hispzds general Narrative - Reported* Type Description Date [...] Hospitalization History See Surgical Hx Hospitalization History [facility] 12/2022 [facility] Other Hiskmtv general Narrative - Reported* Type Description Date [...] Hospitalization History See Surgical Hx Hospitalization History [facility] 12/2022 [facility] Other History general Narrative - Reported* Type [...] See Surgical Hx Hospitalization History [facility] 12/2022 [facility] Other Hospital Discharge instructions No data available for this section [facility] No data available for this section [facility] Summary Purpose Family History No Family History Records FoundNo Family History Records FoundNo Family History Records FoundNo Family History Records Found No data available for this section No data available for this section No Family History Records FoundNo Family History Records Found Advance Directives Advance Directive Response Recorded Date/ Time Advance Directives No November 22, 2017 9:57am Hospital Course Note [facility] Clinical Discharge Summary PERSON INFORMATION Name DELICIA HSU Age 83 Years 1935 Sex FEMALE Language Cook Islander PCP Lisandro KRISHNAN, Gypsy Olvera Marital Status Med Service Med/Surg Acct# Arrival 09/25/2019 06:52:00 Visit Reason SURGERY - LEFT TOTAL HIP [facility] Address: [address] [place] [address] Comment: PROVIDER INFORMATION VITALS INFORMATION Vital Sign [...] colitis Chief Complaint Tbh Not Feeling Well Tb Follow Up 3 Month Follow Up Legs A04.71 Reason for Referral Reason DUPLICATE [place] office - frequent UTIs. Diagnosis 1 Frequent UTI (N39.0) Referral Organization [facility] Referring Provider First Name Gypsy Referring Provider Last Name Lisandro Referring Provider Specialty [facility] Plizy [facility] Referred Provider Beau Hernandez Referred Address [address],[place],[address] Referred Provider Specialty Urology Referral Priority Routine General Notes Tatyana Bojorquez 01:56:52 PM >received today Tatyana Bojorquez 05/14/2022 02:02:41 PM >attachments made, notes locked, referral faxed Tatyana Bojorquez 05/14/2022 03:25:50 PM >DUPLICATE REFERRAL Reason *FU 04/28 [place] office - recurrent UTIs. Diagnosis 1 Recurrent UTI (N39.0 ) Referral Organization [facility] Referring Provider First Name Gypsy Referring Provider Last Name Lisandro Referring Provider Specialty [facility] Plizy Referred Organization [employer] [facility] Referred Provider Gerson Juárez Referred Address [address],[place],[address] Referred Provider Specialty Urology Referral Priority Routine [...] CREATED AUTHOR 09/17/[address] [facility] DATE CREATED AUTHOR AUTHOR'S ORGANIZ ATION 10/30/2019 [facility] DATE CREATED AUTHOR AUTHOR'S ORGANIZ ATION 05/31/2022 [facility] DATE CREATED AUTHOR AUTHOR'S ORGANIZ ATION 11/15/2022 [facility] DATE CREATED AUTHOR AUTHOR'S ORGANIZ ATION 02/17/2023 [facility] DATE CREATED AUTHOR AUTHOR'S ORGANIZ ATION 02/28/2023 [facility] REASON FOR VISIT (unrecogniz ed section [...] on alosetron, Patient was recently inpatient at [facility] and was diagnosed with gastric ulcerPRESCRIPTIONPATIENT HERE [...] Member Role Status Dates Malathi Velázquez APRN 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 [facility] [employer] provides no warranty or guarantee of the accuracy or completeness of information in this document.
[2023-05-02 14:10] LABS: C. Difficile PCR NEGATIVE (NEGATIVE)
== END 2023-05-01 17:21 | disposition home or self-care (01) ==
LOC: LAB 17:20
PROVIDERS: PCP Family Medicine; Visit Provider Internal Medicine Infectious Disease
DX: A04.71 Enterocolitis due to Clostridium difficile, recurrent (principal)
CPT/HCPCS: 87493

== ENCOUNTER 2023-05-06 11:30 | Outpatient (OUT) | payer MEDICARE, BC, SELFPAY ==
[2023-05-06 13:48] LABS: Bilirubin Urine NEGATIVE (NEGATIVE); Blood Urine TRACE-I (NEGATIVE); Clarity Urine CLEAR (CLEAR); Color Urine YELLOW (YELLOW); Glucose Urine UA NEGATIVE (NEGATIVE); Ketones Urine NEGATIVE (NEGATIVE); Leukocyte Esterase Urine SMALL (NEGATIVE); Nitrite Urine POSITIVE (NEGATIVE); Protein Urine NEGATIVE (NEG/TRACE); Specific Gravity Urine 1.025 (1.005-1.025); Urobilinogen Urine 0.2 EU/dL (0.2-1.0); pH Urine 5.5 (5.0-9.0)
== END 2023-05-06 11:31 | disposition home or self-care (01) ==
LOC: LAB 11:32
PROVIDERS: PCP Family Medicine; Visit Provider Physician Assistant
DX: N39.0 Urinary tract infection, site not specified (principal)
CPT/HCPCS: 81003; 87086; 87150

== ENCOUNTER 2023-05-22 13:27 | Outpatient (OUT) | payer MEDICARE, BC, SELFPAY ==
--- OUTSIDE RECORDS SUMMARY | 2023-05-22 13:32 | XMS_ITS | CCD ---
Author Organization [facility] Care Team Providers Care Cinder Worker Name Role Phone Jian Giana Unavailable Hunter Brown Unavailable MD Gypsy Mcmahon Primary Care Provider MD Gypsy Mcmahon Attending Provider [phone] MD Hunter Brown Attending Provider Gypsy Mcmahon [...] MCMAHON, DR GYPSY Olvera Primary Care Unavailable [facility] [place] ., TIFFANIE VALLES Consulting Unavailabl e MCMAHON, [...] HIGHLANDER, CLAU Shrestha Attending Unavailable HIGHLANDER, CLAU D Admitting Unavailable MCMAHON, DR GYPSY [...] EMILIE Attending Unavailable CLAU SHAH Consulting Unavailable MIKEYWWAD, MCCORD H Admitting Unavailable ROSE ., MR GIBBONS Consulting Unavailable FAWWAFady, MCCORD H Attending Unavailable MCMAHON, DR GYPSY Olvera Primary Care Unavailable ANN LEON Consulting Unavailable SAMSA ., KANDI Consulting Unavailable HERNANDO HAMLIN Consulting Unavailable FAWWAD, MCCORD H Consulting Unavailable GIANA HOLLY Consulting Unavailable KIM ., KATIE HOWELL Consulting Unavailable JUNGERMANN, JENNIFER Consulting Unavailable GEMBUS, ROBERT Consulting Unavailable ANG ROMAN Consulting Unavailable DEACONANDER, CLAU Shrestha Attending Unavailable HIGHLANDER, CLAU D Admitting Unavailable MCMAHON, DR GYPSY Olvera Primary Care Unavailable Jose G Ellington Unavailable ELTAHAWY, EHAB Attending Unavailable [facility] Attending Unavailable Malathi Velázquez Unavailable MD Jacinto Max Attending Provider [phone] MD Jacinto Max Referring Provider MD Gypsy Mcmahon Primary Care Provider [phone] Jacinto Max Unavailable MD Jacinto Max Attending Provider MD Jacinto Max Referring Provider MD Gypsy Mcmahon Primary Care Provider DO Marvin Garcia Emergency Provider Hunter Brown Attending UnavailHunter Grimes Admitting Unavailabl e McmahonGypsy Primary Care Unavailable Jacinto Max Admitting Unavailable McmahonGypsy Primary Care Unavailable Jacinto Max Referring Unavailable Jacinto Max Attending Unavailable Marvin Garcia Attending Unavailable Marvin Garcia Admitting Unavailable Gypsy Mcmahon Primary Care Unavailable EDBMALATHI RUBIO Attending Unavailable DEB, MALATHI Olvera Admitting Unavailable DEB, MALATHI Olvera Referring Unavailable Marvin KWON Attending Unavailable DEB, MALATHI Olvera Attending Unavailable DEB, MALATHI Olvera Attending Unavailable GYPSY MCMAHON Referring Unavailable DEB, MALATHI Olvera Attending Unavailable DEBMALATHI Attending Unavailable Allergies Allergy Classification Reported Allergen(s) Allergy Type Date of Onset Reaction(s) Facility (20 sources) Promethazine; 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: [promethazine] Drug Allergy 02-04-20 13 anaphylaxis, Anaphylaxis (disorder) [facility] (20 sources) histamines Drug allergy Unknown [facility] Other (6 sources) Histamine H2 Inhibitors; 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: [Histamine H2 Inhibitors] Allergy to substance 07-16-19 13 Unknown Reaction [facility] (20 sources) levoFLOXacin; 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: [levofloxacin] Drug Allergy 07-01-19 23 Tremor (finding) [facility] (1 source) diphenhydrAMINE Drug Allergy 04-20-19 [facility] Repository (1 source) ezetimibe Drug Allergy 04-20-19 [facility] (1 source) Gemfibrozil Drug Allergy 04-20-19 [facility] Repository (2 sources) Levamisole; 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: [Phenergan] Drug Allergy 07-16-19 13 [facility] (1 source) NSAIDs Drug allergy (disorder) 04-20-19 [facility] (1 source) Nasal Decongestant Drug allergy (disorder) 04-20-19 [facility] (1 source) Darvocet-N 100 Drug allergy (disorder) 04-20-19 [facility] Repository (10 sources) diphenhydrAMINE; 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: [diphenhydramine] Drug Allergy jumpy,, Unknown [facility] (13 sources) Penicillin; 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: [penicillin] Drug Allergy Eruption of skin (disorder) [facility] (1 source) Histamine; 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: [HISTAMINE] Drug Allergy 02-04-20 13 [facility] Repository (3 sources) Penicillins; 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: [Penicillins] Propensity to adverse reactions 02-25-19 Rash [facility] (1 source) Antihistamines Allergy to substance 02-26-19 [facility] (1 source) Promethazine Drug Allergy 12-07-19 [facility] Repository Medications Current Medications Medication Drug Class(es) Dates Sig (Normalized) Sig (Original) alosetron 0.5 mg oral tablet (20 sources) Serotonin-3 Receptor Antagonist Start: 10-03-2021 alosetron 0.5 mg oral tablet Refills(s) 0 Start Date: 05/14/22 Status: Ordered amoxicillin 500 mg oral capsule (3 sources) Penicillin-class Antibacterial Start: 04-16-2022 take 1 capsule by mouth every twelve hours Amoxicillin 500 MG 1 capsule Orally Twice a day for 7 days Apr, Active Pepto-bismol (20 sources) Bismuth Start: 09-22-2022 Pepto-Bismol Refills(s) 0 Start Date: 09/22/22 Status: Ordered Pepto-Bismol Act judah budesonide 3 mg delayed release oral capsule (20 sources) Corticosteroid Start: 05-14-2022 budesonide 3 m g oral delayed release capsule Refills(s) 0 Start Date: 05/14/22 Status: Ordered Start: 12-06-2017 take 9 mg by mouth once daily Budesonide Active 9 MG PO Daily December 06, 2017 12:00am cholecalciferol 0.05 mg oral tablet (4 sources) Vitamin D Start: 12-06-2017 take 1 tablet by mouth once daily Cholecalciferol (Vitamin D3) (Vitamin D3) 2,000 unit Tablet Active 2000 UNIT PO Daily December 06, 2017 12:00am ciprofloxacin 500 mg oral tablet (1 source) Quinolone Antimicrobial Start: 02-19-2022 take 1 tablet by mouth every twelve hours Ciprofloxacin HCl 500 MG 1 tablet Orally every 12 hrs for 7 day(s) Feb, Active clopidogrel 75 mg oral tablet (20 sources) P2Y12 Platelet Inhibitor Start: 04-15-2023 take 1 tablet by mouth once daily Clopidogrel Active 75 MG PO Daily April 15, 2023 1:00am FreeTextSi tablet Orally Once a day; Note: Source Status: Taking; Provider: Winter Casey ( ) Start: 09-22-2022 clopidogrel Or al, Refills(s) 0 Start Date: 09/22/22 Status: Ordered take 1 tablet by ad th every twenty-four hours Clopidogrel Bisulfate 75 MG 1 tablet Orally Once a day Active colestipol hydrochloride 1000 mg oral tablet (6 sources) Bile Acid Sequestrant Start: 01-27-2021 take 2 tablets by mouth every twenty-four hours Colestipol HCl 1 GM 2 tablets Orally Once a day for 90 days Jan, Active Estradiol (20 sources) Estrogen Start: 04-26-2023 Estradiol Active 0 .ROUTE .COMPLEX 42.5 April 26, 2023 10:03am INSERT 1 GRAM VAGINALLY TWICE WEEKLY DIRECTED Start: 04-15-2023 End: 04-26-2023 Estradiol Discontinued 1 GM VAGINAL Twice a Week April 15, 2023 1:00am April 26, 2023 10:03am FreeTextSi gram as directed Vaginal Two times a Week; Note: Source Status: Taking; Refills: 1; Qty: 1 Each; Provider: Lisandro Olvera Start: 05-19-2022 estradiol 0.1 mg/g Vag Crm [...] times a Week for 30 days Active fidaxomicin 200 mg oral tablet (2 sources) Macrolide Antibacterial Start: 04-22-2023 take 1 tablet by mouth every other day Fidaxomicin (Dificid) 200 mg tablet Active 200 MG PO every other day 11 27April 22, 2023 3:47pm Start: 04-15-2023 End: 04-22-2023 take 1 tablet by mouth every twelve hours Fidaxomicin (Dificid) 200 mg tablet Discontinued 200 MG PO Every 12 hours 27 11April 15, 2023 1:00am April 22, 2023 3:49pm fluconazole 100 mg oral tablet (9 sources) Azole Antifungal Start: 05-14-2022 fluconazole 1 00 mg Tab Refills(s) 0 Start Date: 05/14/22 Status: Ordered Start: 04-03-2022 take 1 tablet by ad th every twenty-four hours Fluconazole 100 MG 1 tablet Orally daily for 7 days Mar, Active L. Acidophilus/Bifid. Animalis (Daily Probiotic) 2.5 billion cell capsule (1 source) Start: 04-15-2023 lactobacillus acidophilus [id number] unt oral tablet (2 sources) take 1 [...] Start Date: 09/22/22 Status: Ordered Start: 12-06-2017 End: 04-15-2023 take 2 mg by mouth once daily Loperamide Discontinued 2 MG PO Daily December 06, 2017 12:00am April 15, 2023 2:38pm Imodium A-D prn Active Imodium A-D Acti ve Magnesium (6 sources) Magnesium 400 MG 1 tablet twice a day Active magnesium oxide 400 mg oral tablet (3 sources) take 1 tablet by mouth every twenty-four hours Magnesium Oxide 400 MG 1 tablet as needed Orally Once a day Active 24 hr metoprolol succinate 25 mg extended release oral tablet (20 sources) beta-Adrenergic Daryl Start: 04-15-2023 Metoprolol Succinate (Toprol Xl) 25 mg tablet extended release 24 hr Active 50 MG PO Daily April 15, 2023 10:04am Start: 05-19-2022 metoprolol Ref ills(s) 0 Start Date: 05/19/22 Status: Ordered Start: 12-06-2017 End: 04-15-2023 take 1 tablet by mouth once daily Metoprolol Succinate (Toprol Xl) 25 mg Tablet Extended Release 24 Hr Discontinued 25 MG PO Daily December 06, 2017 12:00am April 15, 2023 10:04am Metoprolol Succi fantasma ER 50 MG TAKE [...] Her - as directed Orally Active Multivitamin (Daily Multi-Vitamin) tablet (1 source) Start: 04-15-19 take 1 tablet by mouth once daily Multivitamin (Daily Multi-Vitamin) tablet Active 1 TAB PO Daily April 15, 2023 1:00am Multivitamin preparation (6 sources) Start: 05-20-19 multivitamin Daily, Refill(s) 0 Start Date: 05/19/22 Status: Ordered Nature's Bounty Probiotic (3 sources) Start: 01-27-20 Nature's Bounty Probiotic Oral, Daily Start Date: 01/26/23 Status: Ordered nitrofurantoin, macrocrystals 25 mg / nitrofurantoin, monohydrate 75 mg oral capsule (3 sources) Nitrofuran Antibacterial Start: 05-20-19 take 1 mg by mouth twice daily Macrobid 100 mg Cap mg cap(s), Oral, BID, Refills(s) 0 Start Date: 05/19/22 Status: Ordered Start: 05-14-2022 take 1 capsule by mo [facility] every twelve hours Macrobid 100 MG 1 capsule with food Orally every 12 hrs for 7 days May, Active pantoprazole 40 mg delayed release oral tablet (20 sources) Proton Pump Inhibitor Start: 05-14-2022 take 1 tablet by mouth once daily Pantoprazole Active 1 TAB PO Daily April 15, 2023 1:00am FreeTextSig: TAKE 1 TABLET BY MOUTH ONCE DAILY; Note: Source Status: Taking; Refills: 3; Qty: 90 Tablet; Provider: Manny Harrison ( ) simvastatin 40 mg oral tablet (20 sources) HMG-CoA Reductase Inhibitor Start: 12-06-2017 simvastatin 40 mg Tab Refills(s) 0 Start Date: 05/14/22 Status: Ordered spironolactone 25 mg oral tablet (20 sources) Aldosterone Antagonist Start: 05-14-2022 take 1 tablet by mouth once daily Spironolactone Active 25 MG PO Daily April 15, 2023 1:00am FreeTextSi tablet Orally Once a day; Note: Source Status: Taking; Provider: Lisandro Banerjee ctive sulfamethoxazole 800 mg / trimethoprim 160 mg oral tablet (3 sources) Dihydrofolate Reductase Inhibitor Antibacterial, Sulfonamide Antimicrobial Start: 09-10-2022 take 1 tablet by mouth every twelve hours Bactrim DS 800-160 MG 1 tablet Orally Twice a day for 5 days Sep, Active Entyvio (20 sources) Integrin Receptor Antagonist Start: 05-19-2022 Entyvio mg, IV, Refills(s) 0 Start Date: 05/19/22 Status: Ordered Entyvio Active Vitamin D 1000 UNIT (6 sources) take 1 tablet by ad once daily Vitamin D 1000 UNIT 1 [...] (Original) alendronic acid 70 mg oral tablet (4 sources) Bisphosphonate Start: 12-06-2017 End: 04-15-2023 take 70 mg by mouth every week Alendronate Discontinued 70 MG PO every week December 06, 2017 12:00am April 15, 2023 2:36pm aspirin 81 mg delayed release oral tablet (10 sources) Platelet Aggregation Inhibitor, Nonsteroidal Anti-inflammatory Drug Start: 12-06-2017 End: 04-15-2023 take 1 tablet by mouth once daily Aspirin (Aspir-81) 81 mg Tablet,Delayed Release (Dr/Ec) Discontinued 81 MG PO Daily December 06, 2017 12:00am April 15, 2023 2:36pm Aspirin 81 Activ e atropine sulfate 0.025 mg / diphenoxylate hydrochloride [...] Orally bid for 7 days Apr, Not-Taking Cranberry preparation (9 sources) Non-Standardized Food Allergenic Extract, Non-Standardized Plant Allergenic Extract Start: 04-15-2023 End: 04-15-2023 Cranberry Extract Discontinued MG PO April 15, 2023 1:00am April 15, 2023 2:38pm Cranberry Extrac t Active doxycycline hyclate 100 mg oral capsule (1 source) Tetracycline-class Drug Start: 06-01-2022 take 1 capsule by mouth once daily doxycycline hyclate 100 mg Cap 100 mg = 1 cap(s), Oral, Daily, Take 1 pill the day before the procedure and 1 pill after the procedure, # 2 cap(s), Refills(s) 0, Pharmacy: [facility]/pharmacy #[id number], 178, cm, 05/19/22 13:31:00 EDT, Height/Length Dosing, 61, kg, 05/19/22 13:31:00 EDT, Weigh... Start Date: 06/01/22 Status: Ordered hydroCHLOROthiazide 12.5 mg / losartan potassium 50 mg oral tablet (4 sources) Thiazide Diuretic, Angiotensin 2 Receptor Daryl Start: 12-06-2017 End: 04-15-2023 take 1 tablet by mouth once daily Losartan-Hydroch lorothiazide Discontinued 1 TAB PO Daily December 06, 2017 12:00am April 15, 2023 2:38pm Iron (6 sources) Iron Not-Taking ondansetron 4 [...] (6 sources) Opioid Agonist traMADol HCl Not-Taking vancomycin 125 mg oral capsule (18 sources) Glycopeptide Antibacterial Start: 03-12-2023 take 1 capsule by mouth every six hours Vancomycin HCl 125 MG 1 capsule Orally every 6 hrs for 14 days Mar, Active Start: 01-26-2023 End: 04-22-2023 take 125 mg by mouth four times daily Vancomycin Discontinued 125 MG PO Four times daily 56 April 12, 2023 1:00am April 22, 2023 3:48pm Start: 01-26-2023 Vancomycin HCl 250 MG 1 capsule four times a day for 14 days, then 1 capsule twice a day for 14 days Orally as directed for 28 days PLEASE CHECK ALLERGIES Jan, Active Start: 01-26-2023 take 1 capsule by [facility] every twenty-four hours Vancomycin HCl 250 MG 1 capsule Orally Once a day for 30 days PLEASE CHECK ALLERGIES Jan, Active Problems Active Problems Problem Classification Problem Date [...] disease (20 sources) Atherosclerotic heart disease of [place] coronary artery without angina pectoris; 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: [Coronary arteriosclerosis] Onset: 03-03-2022 Chronic Coronary atherosclerosis and other heart disease (1 source) Presence of aortocoronary bypass graft; 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: [PRESENCE AORTOCORONARY BYPASS GRAFT] Onset: 03-24-2022 Episodic Disorders of lipid metabolism (7 sources) Hyperlipidemia; 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: [Pure hypercholesterolemia, unspecified] Onset: [...] 11-10-2021 Chronic Genitourinary symptoms and ill-defined conditions (2 sources) Urge incontinence of urine 01-27-2023 Chronic Genitourinary symptoms and ill-defined conditions (20 sources) Dysuria; 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: [Sensation as if bladder still full] Onset: 12-27-2021 Episodic Headache; including migraine (4 sources) Headache; including migraine; 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: [HEADACHE UNSPECIFIED] Onset: 03-20-2022 Immunizations and screening for infectious disease (1 source) Encounter for immunization Episodic Intestinal infection (8 sources) Enterocolitis due to Clostridium difficile, not [...] 02-04-2022 Chronic Other aftercare (1 source) 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; 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: [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 CURRENT DRUG THERAPY] Onset: 03-24-2022 Episodic Other [...] disorders (20 sources) Diarrhea; 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: [Diarrhea, unspecified] 04-06-2023 Episodic Other gastrointestinal disorders (20 sources) Swollen [...] and visceral atherosclerosis (14 sources) 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; 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: [Atherosclerosis of [place] arteries of left leg with ulceration of [...] sources) Localized edema; 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: [LOCALIZED EDEMA] Onset: 09-08-2022 Episodic Residual codes; unclassified (1 source) Pain, [...] Onset: 11-02-2021 Episodic Other aftercare (1 source) MCC (current) 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; 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: [ALF CURRENT USE OF ASPIRIN] Onset: 11-10-2021 Episodic Other diseases of veins and lymphatics (1 source) Venous insufficiency (chronic) (peripheral); 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: [VENOUS INSUFF CHRONIC PERIPHERAL] Onset: 11-10-2021 Episodic Other gastrointestinal disorders (2 sources) Full incontinence of feces; 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: [FULL INCONTINENCE OF FECES] Onset: 02-19-2022 Episodic Unclassified (6 sources) Finding of sensation of bladder 05-19-2022 Unclassified (1 source) CONTACT W/AND (SUSP) EXPOS COVID-19; 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: [CONTACT W/AND (SUSP) EXPOS COVID-19] Onset: 08-12-2021 Results Test Name Value Interpretation Reference Range Facility [facility] 05-10-2023 Lab Reports [id number]#1.00TIFF Normal [facility] Lab Reports [id number]#1.00TIFF Normal [facility] Lab Reports [id number]#1.00TIFF Normal [facility] 05-07-2023 Lab Reports [id number]#1.00TIFF Normal [facility] No Panel Informationon 04-30 Clostridium difficile (PCR)(LAB) Negative NEGATIVE [facility] No Panel Informationon 04-06 Clostridium difficile (PCR)(LAB) Positive Negative [facility] Comment on above: Toxigenic C difficil e: PositiveEpidemic Strain Bl/NAP1/027: Presumptive NegativePerformed at: [place] [id number] Director: Salomon Mcarthur PhD, Phone: [phone] IntraOperative Documentson 0 02-12-2023 IntraOperative Documents [id number]#1.00TIFF Normal [facility] Physician Orderon 02-12-2023 Physician Order [id number]#1.00TIFF Normal [facility] Physician Order [id number]#1.00TIFF Normal [facility] ED Note-Physicianon 02-05-20 ED Note-Physician [id number]#1.00TIFF Normal [facility] 02-04-2023 Lab Reports [id number]#1.00TIFF Normal [facility] Lab Reports [id number]#1.00TIFF Normal [facility] Lab Reports [id number]#1.00TIFF Normal [facility] Consent for Treatmenton 01-09 Consent for Treatment [id number]#1.00TIFF Normal [facility] Retail - Clinical Noteon Retail - Clinical Note [id number]#1.00TIFF Normal [facility] 01-28-2023 Lab Reports [id number]#1.00TIFF Normal [facility] Physician Orderon 01-28-2023 Physician Order [id number]#1.00TIFF [facility] Urology Office/Clinic Noteon 01-27-2023 Urology Office/Clinic Note [...] d-mannose. We also talked about lyndsey and koanetaucha. S/p Cysto 06/09/22 - mildly prolapsed urethra, [...] Urnls Dip Stick Auto w/o Microscopy POC 91556 2. 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 he agrees w above plan. 3. [...] the risks of side effects etc. Orders: [id number] Measure Post Void residual urine and/or bladder capacity by US- non-imaging Total time spent reviewing previous notes/results/external documents, preparing the chart, conducting the encounter with the patient and family, ordering tests/medications, and documenting the encounter was 40 minutes. Follow-up With When Contact Information MALATHI VIEIRA PA-C, URL [address] [place] [address] [phone] Additional Instructions: f/u in Spring Patient Education Urinary Tract Infection, Adult, Vrij-rx-Iijn Documentation recorded by the scribe Caprice Stratton accurately reflects the services(s) I performed and decisions made by me. Authenticated by Malathi Vieira PA-C on 01/27/2023 13:56:47. I, Caprice Stratton, personally scribed for Malathi Vieira PA-C on (more content not included)... Normal [facility] Comment on above: Result Comment: Elec [...] Urnls Dip Stick Auto w/o Microscopy POC 86063 Your Care Team Attending Physician - MALATHI [...] Appointments Wednesday. 2023 2:00 PM EDT With: DEB ZAZUETA, MALATHI Olvera Where: [facility] 01-26-2023 Lab Reports [id number]#1.00TIFF [facility] Patient Educationon 01-27-20 Patient Education Obstetrics and [...] these instructions at home: Medicines ? Take odti-cfa-pbuzxsr and prescription medicines only as told by [...] provider. Document Revised: 09/06/2020 Document Reviewed: 09/06/2020 [employer] [place] Patient Education ? [address] [employer] [address] [facility] 01-25-2023 Lab Reports [id number]#1.00TIFF [facility] Lab Reports [id number]#1.00TIFF [facility] 12-04-2022 Lab Reports [id number]#1.00TIFF [facility] Physician Orderon 12-01-2022 Physician Order [id number]#1.00TIFF [facility] Office Visiton 11-11-2022 Follow-up visit [id number] Delicia Hsu Jean Carlos 1935 F Date Provider Department Center 11/11/2022 KulwinderJAKE BARRY CARD [facility] Family History Problem Relation Age of Onset Aneurysm Mother Heart attack Father Family Status - Relation Status Age at Mother Father Level of Service:39589 SD OFFICE/OUTPATIENT ESTABLISHED LOW MDM 20-29 MIN Normal [facility] 09-25-2022 Lab Reports [id number]#1.00CD:127 Normal [facility] Lab Reports [id number]#1.00CD:127 [facility] Physician Orderon 09-23-2022 Physician Order [id number]#1.00CD:127 [facility] Screenson 09-23-2022 Screens [id number]#1.00CD:127 [facility] Ambulatory Visit Summaryon 0 09-22-2022 Ambulatory [...] these instructions at home: Medicines ? Take bvrc-hrl-kdldqya and prescription medicines only as told by [...] provider. Document Revised: 09/06/2020 Document Reviewed: 09/06/2020 [employer] [place] Patient Education ? [address] [employer] [facility] Urology Office/Clinic Noteon 09-22-2022 Urology Office/Clinic [...] symptoms not resolved. C&S this morning at [facility] ( not finalized) UTI symptoms Memory issues, [...] resolved per daughter. C&S this morning at [facility] (not finalized) - will call pt w/ results and send abx if needed. UTI symptoms include memory issues, losses balance, dizziness. 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 [...] When Contact Information MALATHI VIEIRA PA-C, URL [address] [place] [address] Additional Instructions: Patient Education Urinary Tract Infection, Adult, Banj-gv-Hnit IJazlyn, personally scribed for Malathi Vieira PA-C [...] 3 mg (more content not included)... Normal [facility] Comment on above: Result Comment: Elec tronically Signed By: MALATHI VIEIRA PA-C\.br\Date and Time Signed: 09/22/22 16:16 EDT\.br\Electronically Co-Signed By: Jazlyn Lucero\.br\Date and Time Co-Signed: 09/22/22 15:38 EDT [facility] 07-02-2022 Lab Reports [id number]#1.00CD:127 Normal [facility] Office Visiton 06-30-2022 Follow-up visit [id number] Delicia Hsu 1935 F Date Provider [facility] 06/30/2022 Kulwinder-JAKE BARRY CARD [facility] Family History Problem Relation Age of Onset Aneurysm Mother Heart attack Father Family Status - Relation Status Age at Mother Father Level of Service:63173 SD OFFICE/OUTPATIENT NEW MODERATE MDM 45-59 MINUTES Normal [facility] Consent for Procedure/Surger yon 06-10-2022 Consent for Procedure/Surgery [id number]:127 Normal [facility] Patient Educationon 06-10-19 Patient Education Obstetrics and [...] these instructions at home: Medicines ? Take mhhq-zwe-vbvoiwh and prescription medicines only as told by [...] provider. Document Revised: 09/06/2020 Document Reviewed: 09/06/2020 [employer] Patient Education ? [address] [employer] [address] [facility] Urology Office/Clinic Noteon 06-09-2022 Urology Office/Clinic Note [...] Follow-up With When Contact Information CHER KRISHNAN, JEFF Webb In 4 months 10/10/2022 EDT [facility] [address] [place] [address]- [phone] Additional Instructions: Patient Education Urinary Tract Infection, Adult, Uvya-fy-Ceov Rajani Aviles, personally scribed for Dr. Kwon on 06/09/2022 14:30:17. . Documentation recorded by the rafaelibRajani olvera, accurately reflects the services(s) I performed and decisions made by me. Problem List/Past Medical History Ongoing Colitis Feeling of incomplete bladder emptying Hyperlip (more content not included)... Normal [facility] Comment on above: Result Comment: Elec tronically Signed By: Marvin KWON MD\.br\Date and Time Signed: 06/09/22 14:35 EDT\.br\Electronically Co-Signed By: Rajani Locke MA\.br\Date and Time Co-Signed: 06/09/22 14:30 EDT Lab Reportson 06-02-2022 Lab Reports [id number]:127 Normal [facility] RAD - CT Reporton 06-02-2022 RAD - CT Report [id number]:127 Normal [facility] CT ABD/PELVIS WO CONon 05-27 CT [...] by: MI NUÑEZ Date: 2022-05-27 10:34 Normal [facility] Physician Referralon 023 Physician Referral [id number]:127 Normal [facility] Ambulatory Visit Summaryon 0 05-19-2022 Ambulatory Visit Summary DELICIA HSU :1935 Visit Date:05/19/2022 Ambulatory Visit Instructions Your Diagnosis Recurrent UTI Feeling of incomplete bladder emptying Colitis Tests Performed Urnls Dip Stick Auto w/o Microscopy POC 42776 CT Abdomen/Pelvis w/ Contrast -- Results Pending [...] VIEIRA PA-C, URL When: Where: [address] [place] [address] Medications What How Much When Instructions New [...] Urnls Dip Stick Auto w/o Microscopy POC 45372 (05/19/2022) Bilirubin Urine Dipstick - Negative Blood Urine Dipstick - Negative Glucose Urine Dipstick - Negative Ketones Urine Dipstick - Trace - 5 mg/dl Leukocytes Urine Dipstick - 1+ Small Nitrite Urine Dipstick - Negative Protein Urine Dipstick - Negative Specific [place] Urine Dipstick - 1.020 Urine Appearance Urine [...] a sper (more content not included)... Normal [facility] Patient Educationon 05-20-19 Patient Education Obstetrics [...] this condition includes: ? Antibiotic medicine. ? Glyk-fpn-rkmyzad medicines to treat discomfort. ? Drinking enough [...] these instructions at home: Medicines ? Take asxg-cbx-rppzxfq and prescription medicines only as told by [...] This in (more content not included)... Normal [facility] Patient Letter FTMCon 2022 Patient Letter [facility] (Inserted Image. Delaney ble to display) May 19, 2022 Dear Ms Hsu, My apologies that I forgot to write this down for you at your visit today. Here are the alst-hrw-hfpkahe supplements I would recommend for UTI prevention: probiotics D-mannose cranberry extract You should be able to find combination products that have all 3 ingredients. Provider Signature: Malathi Vieira PA-C Physician [employer] [employer] [address] [place] [address] Normal [facility] CULTURE URINEon 05-14-2022 CULTURE URINE Culture [...] Trimethoprim/Sulfamethoxazol e <=20 S F Normal [facility] Comment on above: Performed By: #### U RCX #### [facility] [address] [place] [address] Dr. Anthony Bonilla UA RANDOMon 05-11-2022 Bilirubin Ql (U) Negative Normal NEGATIVE [facility] Comment on above: Performed By: #### U RCX #### [facility] [address] [place] [address] Dr. Anthony Bonilla Clarity (U) SL CLOUDY Abnormal CLEAR [facility] Comment on above: Performed By: #### U RCX #### [facility] [address] [place] [address] Dr. Anthony Bonilla Color (U) LT. YELLOW Normal YELLOW [facility] Comment on above: Performed By: #### U RCX #### [facility] [address] [place] [address] Dr. Anthony Bonilla Glucose Ql (U) Negative Normal NEGATIVE [facility] Comment on above: Performed By: #### U RCX #### [facility] [address] [place] [address] Dr. Anthony Bonilla Hemoglobin Ql (U) Negative Normal NEGATIVE [facility] Comment on above: Performed By: #### U RCX #### [facility] [address] [place] [address] Dr. Anthony Bonilla Ketones Ql (U) Negative Normal NEGATIVE [facility] Comment on above: Performed By: #### U RCX #### [facility] [address] [place] [address] Dr. Anthony Bonilla LEUKOCYTES MODERATE Abnormal NEGATIVE [facility] Comment on above: Performed By: #### U RCX #### [facility] [address] [place] [address] Dr. Anthony Bonilla Nitrite Ql (U) Negative Normal NEGATIVE [facility] Comment on above: Performed By: #### U RCX #### [facility] [address] [place] [address] Dr. Anthony Bonilla pH (U) 5.5 [pH] Normal 5-9 [facility] Comment on above: Performed By: #### U RCX #### [facility] [address] [address] [address] Anthony Bonilla SPEC GRAVITY 1.020 Normal 1.005-<=1. 025 [facility] Comment on above: Performed By: #### U RCX #### [facility] [address] [place] [address] Dr. Anthony Bonilla UA PROTEIN Negative Normal NEGATIVE/ TRACE [facility] Comment on above: Performed By: #### U RCX #### [facility] [address] [address] [address] Anthony Bonilla Urobilinogen Qn (U) 0.2 {Gen'U}/dL Normal 0.2 - 1. 0 [facility] Comment on above: Performed By: #### U RCX #### [facility] [address] [place] [address] Dr. Anthony Bonilla CULTURE URINEon 05-01-2022 CULTURE [...] F Trimethoprim/Sulfamethoxazol e <=20 S F Normal [facility] Comment on above: Performed By: #### U RCX #### [facility] [address] [place] [address] Dr. Anthony Bonilla CULTURE URINEon 04-16-2022 CULTURE [...] R F Nitrofurantoin 64 I F Normal [facility] Comment on above: Performed By: #### U RCX #### [facility] [address] [place] [address] Dr. Anthony Bonilla UA RANDOMon 04-14-2022 Bilirubin Ql (U) Negative Normal NEGATIVE [facility] Comment on above: Performed By: #### U RCX #### [facility] [address] [place] [address] Dr. Anthony Bonilla Clarity (U) CLEAR Normal CLEAR [facility] Comment on above: Performed By: #### U RCX #### [facility] [address] [place] [address] Dr. Anthony Bonilla Color (U) LT. YELLOW Normal YELLOW [facility] Comment on above: Performed By: #### U RCX #### [facility] [address] [place] [address] Dr. Anthony Bonilla Glucose Ql (U) Negative Normal NEGATIVE [facility] Comment on above: Performed By: #### U RCX #### [facility] [address] [place] [address] Dr. Anthony Bonilla Hemoglobin Ql (U) Negative Normal NEGATIVE [facility] Comment on above: Performed By: #### U RCX #### [facility] [address] [place] [address] Dr. Anthony Bonilla Ketones Ql (U) Negative Normal NEGATIVE [facility] Comment on above: Performed By: #### U RCX #### [facility] [address] [place] [address] Dr. Anthony Bnoilla LEUKOCYTES MODERATE Abnormal NEGATIVE [facility] Comment on above: Performed By: #### U RCX #### [facility] [address] [address] [address] Anthony Bonilla Nitrite Ql (U) Negative Normal NEGATIVE [facility] Comment on above: Performed By: #### U RCX #### [facility] [address] [place] [address] Dr. Anthony Bonilla pH (U) 5.5 [pH] Normal 5-9 [facility] Comment on above: Performed By: #### U RCX #### [facility] [address] [place] [address] Dr. Anthony Bonilla SPEC GRAVITY 1.020 Normal 1.005-<=1. 025 [facility] Comment on above: Performed By: #### U RCX #### [facility] [address] [place] [address] Dr. Anthony Bonilla UA PROTEIN Negative Normal NEGATIVE/ TRACE [facility] Comment on above: Performed By: #### U RCX #### [facility] [address] [place] [address] Dr. Anthony Bonilla Urobilinogen Qn (U) 0.2 {Gen'U}/dL Normal 0.2 - 1. 0 [facility] Comment on above: Performed By: #### U RCX #### [facility] [address] [place] [address] Dr. Anthony Bonilla Urinalysis - DIPSTICKon 03-12 Appearance (U) clear [employer] Other Bilirubin Ql (U) small [employer] Other Color (U) dark yellow [facility] Other Glucose Ql (U) Negative [employer] Other Hemoglobin Ql (U) Negative [employer] Other Ketones Ql (U) trace [employer] Other Leukocyte esterase Test strip Ql (U) small [facility] Other Nitrite Ql (U) Negative [employer] Other pH (U) 5.0 [pH] [facility] Other Protein Ql (U) Negative [employer] Other Specific gravity (U) [Rel density] 1.015 [facility] Other Urobilinogen (U) [Mass/Vol] 0.2 mg/dL [facility] Other Urinalysis - DIPSTICK [facility] Other Urine Cultureon 03-30-2022 Urine Culture 10,000 [facility] Other Bacteria identified Cx Nom (U) [facility] Other CULTURE URINEon 03-23-2022 CULTURE URINE Isolate 1 Pseudomonas aeruginosa >100,000 cfu/mL of ORGANISM 1 Pseudomonas aeruginosa ANTIBIOTIC M.I.C RX STATUS Piperacillin/Tazobactam 8 S F Ceftazidime 4 S F Imipenem 1 S F Amikacin <=2 S F Gentamicin <=1 S F Tobramycin <=1 S F Ciprofloxacin <=0.25 S F Levofloxacin 0.5 S F Normal [facility] Comment on above: Performed By: #### U RCX #### [facility] [address] [address] [address] Anthony Bonilla CARDIAC DARWIN ADMITon 023 CK [Catalytic activity/Vol] 137 U/L Normal 26-192 [facility] Comment on above: Performed By: #### U RCX #### [facility] [address] [address] [address] Anthony Bonilla CK.MB [Mass/Vol] 1.05 ng/mL Normal <=3.60 [facility] Comment on above: Performed By: #### U RCX #### [facility] [address] [place] [address] Dr. Anthony Bonilla HSTROP 17.6 pg/mL Normal 4.0-51.3 [facility] Comment on above: Result Comment: CUT- OFF POINTS HAVE BEEN ESTABLISHED BASED ON THE FOURTH UNIVERSAL DEFINITIONS OF MYOCARDIAL INFARCTION. THE UPPER REFERENCE LIMIT (URL) OF TROPONIN, DEFINED THE 99TH PERCENTILE OF cTnI DISTRIBUTION IN A REFERENCE POPULATION, HAS BEEN CONFIRMED THE DECISION THRESHOLD FOR MA DIAGNOSIS. Performed By: #### U RCX #### [facility] [address] [place] [address] Dr. Anthony Bonilla CANDIDA 72 ng/mL Normal 9-82 [facility] Comment on above: Performed By: #### U RCX #### [facility] [address] [place] [address] Dr. Anthony Bonilla CBC AUTO DIFFon 03-20-2022 BASO # 0.0 103/ul Normal 0.0-0.1 [facility] Comment on above: Performed By: #### C BC #### [facility] [address] [place] [address] Dr. Anthony Bonilla Basophils/100 WBC (Bld) 0.3 % Normal 0.2-2.0 [facility] Comment on above: Performed By: #### C BC #### [facility] [address] [place] [address] Dr. Anthony Bonilla EO # 0.0 103/ul Normal 0.0-0.7 [facility] Comment on above: Performed By: #### C BC #### [facility] [address] [place] [address] Dr. Anthony Bonilla Eosinophils/100 WBC (Bld) 0.1 % Critically low 0.9-7.0 [facility] Comment on above: Performed By: #### C BC #### [facility] [address] [place] [address] Dr. Anthony Bonilla Erythrocyte distribution width (RBC) [Ratio] 15.9 % Critically high 11.0-15.0 [facility] Comment on above: Performed By: #### C BC #### [facility] [address] [address] [address] Anthony Bonilla Hematocrit (Bld) [Volume fraction] 33.6 % Critically low 36.0-48.0 [facility] Comment on above: Performed By: #### C BC #### [facility] [address] [place] [address] Dr. Anthony Bonilla Hemoglobin (Bld) [Mass/Vol] 11.2 g/dL Critically low 12.0-16.0 [facility] Comment on above: Performed By: #### C BC #### [facility] [address] [place] [address] Dr. Anthony Bonilla IG # 0.04 10e3/ul Critically high 0.00-0.03 [facility] Comment on above: Performed By: #### C BC #### [facility] [address] [place] [address] Dr. Anthony Bonilla IG % 0.3 % Normal 0.0-0.5 [facility] Comment on above: Performed By: #### C BC #### [facility] [address] [place] [address] Dr. Anthony Bonilla LYMPH # 0.8 103/ul Critically low 1.2-3.8 [facility] Comment on above: Performed By: #### C BC #### [facility] [address] [place] [address] Dr. Anthony Bonilla Lymphocytes/100 WBC (Bld) 6.4 % Critically low 20.5-60.0 [facility] Comment on above: Performed By: #### C BC #### [facility] [address] [place] [address] Dr. Anthony Bonilla MANUAL DIFF REQ NO Normal [facility] Comment on above: Performed By: #### C BC #### [facility] [address] [place] [address] Dr. Anthony Bonilla MCH (RBC) [Entitic mass] 28.9 pg Normal 26.7-34.0 [facility] Comment on above: Performed By: #### C BC #### [facility] [address] [address] [address] Anthony Bonilla MCHC (RBC) [Mass/Vol] 33.3 g/dL Normal 29.9-35.2 [facility] Comment on above: Performed By: #### C BC #### [facility] [address] [address] [address] Anthony Bonilla MCV (RBC) [Entitic vol] 86.8 fL Normal 81.0-99.0 [facility] Comment on above: Performed By: #### C BC #### [facility] [address] [address] [address] Anthony Bonilla MONO # 1.1 103/ul Critically high 0.3-0.8 [facility] Comment on above: Performed By: #### C BC #### [facility] [address] [address] [address] Anthony Bonilla Monocytes/100 WBC (Bld) 8.3 % Normal 1.7-12.0 [facility] Comment on above: Performed By: #### C BC #### [facility] [address] [address] [address] Anthony Bonilla NEUT # 11.2 103/ul Critically high 1.4-6.5 [facility] Comment on above: Performed By: #### C BC #### [facility] [address] [address] [address] Anthony Bonilla Neutrophils/100 WBC (Bld) 84.6 % Critically high 43.0-75.0 [facility] Comment on above: Performed By: #### C BC #### [facility] [address] [address] [address] Anthony Bonilla Platelet mean volume (Bld) [Entitic vol] 9.7 fL Normal 9.5-13.5 [facility] Comment on above: Performed By: #### C BC #### [facility] [address] [address] [address] Anthony Bonilla PLT 274 103/ul Normal 150-450 [facility] Comment on above: Performed By: #### C BC #### [facility] [address] [place], [place] [address] Dr. Anthony Bonilla RBC 3.87 106/ul Critically low 4.20-5.40 [facility] Comment on above: Performed By: #### C BC #### [facility] [address] [place], [place] [address] Dr. Anthony Bonilla WBC 13.2 103/ul Critically high 4.0-11.0 [facility] Comment on above: Performed By: #### C BC #### [facility] [address] [place], [place] [address] HEAD WO CONon [...] CLAU SHAH Date: 2022-03-20 20:30 Normal [facility] ER URINE PROFILEon Bilirubin Ql (U) Negative Normal NEGATIVE [facility] Comment on above: Performed By: #### C BC #### [facility] [address] [place] [address] Dr. Anthony Bonilla Clarity (U) CLEAR Normal CLEAR [facility] Comment on above: Performed By: #### C BC #### [facility] [address] [address] [address] Anthony Bonilla Color (U) LT. YELLOW Normal YELLOW [facility] Comment on above: Performed By: #### C BC #### [facility] [address] [place] [address] Dr. Anthony Bonilla ERUCARMINA A micrscopic examina tion will be performed if indicated. Normal [facility] Comment on above: Performed By: #### C BC #### [facility] [address] [place] [address] Dr. Anthony Bonilla Glucose Ql (U) Negative Normal NEGATIVE [facility] Comment on above: Performed By: #### C BC #### [facility] [address] [place] [address] Dr. Anthony Bonilla Hemoglobin Ql (U) LARGE Abnormal NEGATIVE [facility] Comment on above: Performed By: #### C BC #### [facility] [address] [place] [address] Dr. Anthony Bonilla Ketones Ql (U) Negative Normal NEGATIVE [facility] Comment on above: Performed By: #### C BC #### [facility] [address] [place] [address] Dr. Anthony Bonilla LEUKOCYTES SMALL Abnormal NEGATIVE [facility] Comment on above: Performed By: #### C BC #### [facility] [address] [place] [address] Dr. Anthony Bonilla Nitrite Ql (U) Positive Abnormal NEGATIVE [facility] Comment on above: Performed By: #### C BC #### [facility] [address] [place] [address] Dr. Anthony Bonilla pH (U) 7.0 [pH] Normal 5-9 [facility] Comment on above: Performed By: #### C BC #### [facility] [address] [place] [address] Dr. Anthony Bonilla Protein (U) [Mass/Vol] 30 mg/dL Abnormal NEGATIVE/ TRACE [facility] Comment on above: Performed By: #### C BC #### [facility] [address] [place] [address] Dr. Anthony Bonilla SPEC GRAVITY 1.015 Normal 1.005-<=1. 025 [facility] Comment on above: Performed By: #### C BC #### [facility] [address] [place] [address] Dr. Anthony Bonilla UR MICRO IND INDICATED Normal [facility] Comment on above: Performed By: #### C BC #### [facility] [address] [place] [address] Dr. Anthony Bonilla Urobilinogen Qn (U) 1.0 {Gen'U}/dL Normal 0.2 - 1. 0 [facility] Comment on above: Performed By: #### C BC #### [facility] [address] [place] [address] Dr. Anthony Bonilla PROF 14(COMP METB)on 023 Albumin [Mass/Vol] 3.4 g/dL Normal 3.4-5.0 [facility] Comment on above: Performed By: #### U RCX #### [facility] [address] [place] [address] Dr. Anthony Bonilla Albumin/Globulin [Mass ratio] 1.2 {ratio} Normal [facility] Comment on above: Performed By: #### U RCX #### [facility] [address] [place] [address] Dr. Anthony Bonilla ALP [Catalytic activity/Vol] 26 U/L Critically low 46-116 [facility] Comment on above: Performed By: #### U RCX #### [facility] [address] [place] [address] Dr. Anthony Bonilla ALT [Catalytic activity/Vol] 21 U/L Normal 14-59 [facility] Comment on above: Performed By: #### U RCX #### [facility] [address] [place] [address] Dr. Anthony Bonilla Anion gap [Moles/Vol] 13.7 mmol/L Normal [facility] Comment on above: Performed By: #### U RCX #### [facility] [address] [address] [address] Anthony Bonilla AST [Catalytic activity/Vol] 20 U/L Normal 15-37 [facility] Comment on above: Performed By: #### U RCX #### [facility] [address] [address] [address] Anthony Bonilla Bilirubin [Mass/Vol] 1.2 mg/dL Critically high 0.2-1.0 [facility] Comment on above: Performed By: #### U RCX #### [facility] [address] [place] [address] Dr. Anthony Bonilla Calcium [Mass/Vol] 9.4 mg/dL Normal 8.5-10.1 [facility] Comment on above: Performed By: #### U RCX #### [facility] [address] [address] [address] Anthony Bonilla Chloride [Moles/Vol] 99 mmol/L Normal 98-107 [facility] Comment on above: Performed By: #### U RCX #### [facility] [address] [place] [address] Dr. Anthony Bonilla CO2 [Moles/Vol] 29.1 mmol/L Normal 21.0-32.0 [facility] Comment on above: Performed By: #### U RCX #### [facility] [address] [address] [address] Anthony Bonilla Creatinine [Mass/Vol] 1.02 mg/dL Normal 0.55-1.02 [facility] Comment on above: Performed By: #### U RCX #### [facility] [address] [place] [address] Dr. Anthony Bonilla EGFR-AF [place] >60 Normal >=60 [facility] Comment on above: Performed By: #### U RCX #### [facility] [address] [address] [address] Anthony Bonilla EGFR-NON AF [place] 52 mL/min/1.73m2 Critically low >=60 [facility] Comment on above: Performed By: #### U RCX #### [facility] [address] [place] [address] Dr. Anthony Bonilla Globulin (S) [Mass/Vol] 2.9 g/dL Normal [facility] Comment on above: Performed By: #### U RCX #### [facility] [address] [place] [address] Dr. Anthony Bonilla Glucose [Mass/Vol] 98 mg/dL Normal 74-106 [facility] Comment on above: Performed By: #### U RCX #### [facility] [address] [place] [address] Dr. Anthony Bonilla Potassium [Moles/Vol] 3.8 mmol/L Normal 3.5-5.1 [facility] Comment on above: Performed By: #### U RCX #### [facility] [address] [place] [address] Dr. Anthony Bonilla Protein [Mass/Vol] 6.3 g/dL Critically low 6.4-8.[address] [facility] Comment on above: Performed By: #### U RCX #### [facility] [address] [place] [address] Dr. Anthony Bonilla Sodium [Moles/Vol] 138 mmol/L Normal 136-145 [facility] Comment on above: Performed By: #### U RCX #### [facility] [address] [place] [address] Dr. Anthony Bonilla Urea nitrogen [Mass/Vol] 16.0 mg/dL Normal 7.0-18.0 [facility] Comment on above: Performed By: #### U RCX #### [facility] [address] [place] [address] Dr. Anthony Bonilla Urea nitrogen/Creatinine [Mass ratio] 15.7 mg/mg Normal [facility] Comment on above: Performed By: #### U RCX #### [facility] [address] [place] [address] Dr. Anthony Bonilla URINE MICROSCOPIC ONLYon BACTERIA LARGE Abnormal NONE SEEN [facility] Comment on above: Performed By: #### C BC #### [facility] [address] [place] [address] Dr. Anthony Bonilla Bacteria identified Cx Nom (U) INDICATED Normal [facility] Comment on above: Performed By: #### C BC #### [facility] [address] [place] [address] Dr. Anthony Bonilla CAST NONE SEEN Normal NONE SEEN [facility] Comment on above: Performed By: #### C BC #### [facility] [address] [place] [address] Dr. Anthony Bonilla Crystals LM Nom (Urine sed) NONE SEEN Normal NONE SEEN [facility] Comment on above: Performed By: #### C BC #### [facility] [address] [place] [address] Dr. Anthony Bonilla Epithelial cells LM Ql (Urine sed) FEW Abnormal NONE SEEN /RARE [facility] Comment on above: Performed By: #### C BC #### [facility] [address] [place] [address] Dr. Anthony Bonilla MUCOUS NONE SEEN Normal NONE SEEN [facility] Comment on above: Performed By: #### C BC #### [facility] [address] [place] [address] Dr. Anthony Bonilla RBC 10-20 Abnormal 0-2 [facility] Comment on above: Performed By: #### C BC #### [facility] [address] [place] [address] Dr. Anthony Bonilla WBC 50-75 Abnormal NONE SEEN [facility] Comment on above: Performed By: #### C BC #### [facility] [address] [place] [address] Dr. Anthony Bonilla CALPROTECTIN, FECALon 2022 Calprotectin, Fecal 416 ug/g Critically high 0-120 [facility] Comment on above: Result Comment: Conc entration Interpretation Follow-Up <16 - 50 ug/g Normal None >50 -120 ug/g Borderline Re-evaluate in 4-6 weeks >120 ug/g Abnormal Repeat as clinically indicated Performed By: #### U RCX #### [facility] [address] [place] [address] Dr. Anthony Bonilla QUANTIFERON TB GOLD PLUSon 0 02-19-2022 QuantiFERON Criteria Comment Normal [facility] Comment on above: Result Comment: Butch [...] test. Performed By: #### U RCX #### [facility] [address] [place] [address] Dr. Anthony Bonilla QuantiFERON Incubation Incubation performed. Normal [facility] Comment on above: Performed By: #### U RCX #### [facility] [address] [place] [address] Dr. Anthony Bonilla QuantiFERON Mitogen Value >10.00 Normal [facility] Comment on above: Performed By: #### U RCX #### [facility] [address] [place] [address] Dr. Anthony Bonilla QuantiFERON Nil Value 0.07 IU/mL Normal [facility] Comment on above: Performed By: #### U RCX #### [facility] [address] [place] [address] Dr. Anthony Bonilla QuantiFERON TB1 Ag Value 0.08 IU/mL Normal [facility] Comment on above: Performed By: #### U RCX #### [facility] [address] [place] [address] Dr. Anthony Bonilla QuantiFERON TB2 Ag Value 0.07 IU/mL Normal [facility] Comment on above: Performed By: #### U RCX #### [facility] [address] [place] [address] Dr. Anthony Bonilla QuantiFERON-TB Gold Plus Negative Normal Negative [facility] Comment on above: Result Comment: No r esponse to M tuberculosis antigens detected. Infection with M tuberculosis is unlikely, but high risk individuals should be considered for additional testing (ATS/IDSA/CDC Clinical Practice Guidelines, 2017). The reference range is an Antigen minus Nil result of <0.35 IU/mL. Chemiluminescence immunoassay methodology Performed By: #### U RCX #### [facility] [address] [place] [address] Dr. Anthony Bonilla HEP B SURFACE ANTIGEN SCREEN on 02-18-2022 HBsAg Screen Negative Normal Negative [facility] Comment on above: Performed By: #### U RCX #### [facility] [address] [place] [address] Dr. Anthony Bonilla HEPATITIS B CORE, IgMon 02-08 Hep B Core Ab, IgM Negative Normal Negative [facility] Comment on above: Performed By: #### U RCX #### [facility] [address] [place] [address] Dr. Anthony Bonilla HEPATITIS B SURFACE ANTIBODY , QUANTon 02-18-2022 Hepatitis B Surf AB Quant <3.1 Critically low Immunity>9 .9 [facility] Comment on above: Result Comment: Stat us of Immunity Anti-HBs Level Inconsistent with Immunity 0.0 - 9.9 Consistent with Immunity >9.9 Performed By: #### C BC #### [facility] [address] [place] [address] Dr. Anthony Bonilla CBC AUTO DIFFon 02-17-2022 BASO # 0.0 103/ul Normal 0.0-0.1 [facility] Comment on above: Performed By: #### U RCX #### [facility] [address] [place] [address] Dr. Anthony Bonilla Basophils/100 WBC (Bld) 0.4 % Normal 0.2-2.0 [facility] Comment on above: Performed By: #### U RCX #### [facility] [address] [place] [address] Dr. Anthony Bonilla EO # 0.0 103/ul Normal 0.0-0.7 [facility] Comment on above: Performed By: #### U RCX #### [facility] [address] [address] [address] Anthony Bonilla Eosinophils/100 WBC (Bld) 0.5 % Critically low 0.9-7.0 [facility] Comment on above: Performed By: #### U RCX #### [facility] [address] [place] [address] Dr. Anthony Bonilla Erythrocyte distribution width (RBC) [Ratio] 14.7 % Normal 11.0-15.0 [facility] Comment on above: Performed By: #### U RCX #### [facility] [address] [place] [address] Dr. Anthony Bonilla Hematocrit (Bld) [Volume fraction] 33.2 % Critically low 36.0-48.0 [facility] Comment on above: Performed By: #### U RCX #### [facility] [address] [place] [address] Dr. Anthony Bonilla Hemoglobin (Bld) [Mass/Vol] 11.0 g/dL Critically low 12.0-16.0 [facility] Comment on above: Performed By: #### U RCX #### [facility] [address] [place] [address] Dr. Anthony Bonilla IG # 0.02 10e3/ul Normal 0.00-0.03 [facility] Comment on above: Performed By: #### U RCX #### [facility] [address] [place] [address] Dr. Anthony Bonilla IG % 0.2 % Normal 0.0-0.5 [facility] Comment on above: Performed By: #### U RCX #### [facility] [address] [place] [address] Dr. Anthony Bonilla LYMPH # 1.3 103/ul Normal 1.2-3.8 [facility] Comment on above: Performed By: #### U RCX #### [facility] [address] [place] [address] Dr. Anthony Bonilla Lymphocytes/100 WBC (Bld) 14.8 % Critically low 20.5-60.0 [facility] Comment on above: Performed By: #### U RCX #### [facility] [address] [place] [address] Dr. Anthony Bonilla MANUAL DIFF REQ NO Normal [facility] Comment on above: Performed By: #### U RCX #### [facility] [address] [place] [address] Dr. Anthony Bonilla MCH (RBC) [Entitic mass] 29.0 pg Normal 26.7-34.0 [facility] Comment on above: Performed By: #### U RCX #### [facility] [address] [place] [address] Dr. Anthony Bonilla MCHC (RBC) [Mass/Vol] 33.1 g/dL Normal 29.9-35.2 [facility] Comment on above: Performed By: #### U RCX #### [facility] [address] [place] [address] Dr. Anthony Bonilla MCV (RBC) [Entitic vol] 87.6 fL Normal 81.0-99.0 [facility] Comment on above: Performed By: #### U RCX #### [facility] [address] [place] [address] Dr. Anthony Bonilla MONO # 0.8 103/ul Normal 0.3-0.8 [facility] Comment on above: Performed By: #### U RCX #### [facility] [address] [place] [address] Dr. Anthony Bonilla Monocytes/100 WBC (Bld) 9.6 % Normal 1.7-12.0 [facility] Comment on above: Performed By: #### U RCX #### [facility] [address] [place] [address] Dr. Anthony Bonilla NEUT # 6.3 103/ul Normal 1.4-6.5 [facility] Comment on above: Performed By: #### U RCX #### [facility] [address] [place] [address] Dr. Anthony Bonilla Neutrophils/100 WBC (Bld) 74.5 % Normal 43.0-75.0 [facility] Comment on above: Performed By: #### U RCX #### [facility] [address] [place] [address] Dr. Anthony Bonilla Platelet mean volume (Bld) [Entitic vol] 9.8 fL Normal 9.5-13.5 [facility] Comment on above: Performed By: #### U RCX #### [facility] [address] [place] [address] Dr. Anthony Bonilla PLT 318 103/ul Normal 150-450 [facility] Comment on above: Performed By: #### U RCX #### [facility] [address] [address] [address] Anthony Bonilla RBC 3.79 106/ul Critically low 4.20-5.40 [facility] Comment on above: Performed By: #### U RCX #### [facility] [address] [place] [address] Dr. Anthony Bonilla WBC 8.5 103/ul Normal 4.0-11.0 [facility] Comment on above: Performed By: #### U RCX #### [facility] [address] [place] [address] Dr. Anthony Bonilla PROF 14(COMP METB)on 023 Albumin [Mass/Vol] 3.6 g/dL Normal 3.4-5.0 [facility] Comment on above: Performed By: #### U RCX #### [facility] [address] [place] [address] Dr. Anthony Bonilla Albumin/Globulin [Mass ratio] 1.2 {ratio} Normal [facility] Comment on above: Performed By: #### U RCX #### [facility] [address] [place] [address] Dr. Anthony Bonilla ALP [Catalytic activity/Vol] 27 U/L Critically low 46-116 [facility] Comment on above: Performed By: #### U RCX #### [facility] [address] [place] [address] Dr. Anthony Bonilla ALT [Catalytic activity/Vol] 21 U/L Normal 14-59 [facility] Comment on above: Performed By: #### U RCX #### [facility] [address] [address] [address] Anthony Bonilla Anion gap [Moles/Vol] 13.5 mmol/L Normal [facility] Comment on above: Performed By: #### U RCX #### [facility] [address] [address] [address] Anthony Bonilla AST [Catalytic activity/Vol] 19 U/L Normal 15-37 [facility] Comment on above: Performed By: #### U RCX #### [facility] [address] [address] [address] Anthony Bonilla Bilirubin [Mass/Vol] 0.6 mg/dL Normal 0.2-1.0 [facility] Comment on above: Performed By: #### U RCX #### [facility] [address] [address] [address] Anthony Bonilla Calcium [Mass/Vol] 9.2 mg/dL Normal 8.5-10.1 [facility] Comment on above: Performed By: #### U RCX #### [facility] [address] [address] [address] Anthony Bonilla Chloride [Moles/Vol] 104 mmol/L Normal 98-107 [facility] Comment on above: Performed By: #### U RCX #### [facility] [address] [address] [address] Anthony Bonilla CO2 [Moles/Vol] 28.9 mmol/L Normal 21.0-32.0 [facility] Comment on above: Performed By: #### U RCX #### [facility] [address] [address] [address] Anthony Bonilla Creatinine [Mass/Vol] 1.21 mg/dL Critically high 0.55-1.02 [facility] Comment on above: Performed By: #### U RCX #### [facility] [address] [address] [address] Anthony Bonilla EGFR-AF [place] 51 mL/min/1.73m2 Critically low >=60 [facility] Comment on above: Performed By: #### U RCX #### [facility] [address] [address] [address] Anthony Bonilla EGFR-NON AF [place] 42 mL/min/1.73m2 Critically low >=60 [facility] Comment on above: Performed By: #### U RCX #### [facility] [address] [address] [address] Anthony Bonilla Globulin (S) [Mass/Vol] 3.1 g/dL Normal [facility] Comment on above: Performed By: #### U RCX #### [facility] [address] [address] [address] Anthony Bonilla Glucose [Mass/Vol] 107 mg/dL Critically high 74-106 [facility] Comment on above: Performed By: #### U RCX #### [facility] [address] [address] [address] Anthony Bonilla Potassium [Moles/Vol] 3.4 mmol/L Critically low 3.5-5.1 [facility] Comment on above: Performed By: #### U RCX #### [facility] [address] [address] [address] Anthony Bonilla Protein [Mass/Vol] 6.7 g/dL Normal 6.4-8.2 [facility] Comment on above: Performed By: #### U RCX #### [facility] [address] [address] [address] Anthony Bonilla Sodium [Moles/Vol] 143 mmol/L Normal 136-145 [facility] Comment on above: Performed By: #### U RCX #### [facility] [address] [address] [address] Anthony Bonilla Urea nitrogen [Mass/Vol] 22.0 mg/dL Critically high 7.0-18.0 [facility] Comment on above: Performed By: #### U RCX #### [facility] [address] [address] [address] Anthony Bonilla Urea nitrogen/Creatinine [Mass ratio] 18.2 mg/mg Normal [facility] Comment on above: Performed By: #### U RCX #### [facility] [address] [address] [address] Anthony Bonilla Automated erythrocytes count in urine sediment (number/area)Ordered By: Gypsy Mcmahon on 02-16-2022 RBC Auto (Urine sed) [#/Area] 0-1 [HPF] 0-4 [facility] Automated leukocytes count i n urine sediment (number/area)Ordered By: Gypsy Mcmahon on 02-16-2022 WBC Auto (Urine sed) [#/Area] 20-49 [HPF] 0-4 [facility] Bilirubin Test strip Ql (U)O rdered By: Gypsy Mcmahon on 02-16-2022 Bilirubin Ql (U) Negative Negative [facility] Color Auto (U)Ordered By: Nicole Mcmahon on 02-16-2022 Color (U) Yellow Yellow [facility] Ketones Auto test strip (U) [Mass/Vol]Ordered By: Gypsy Mcmahon on 02-16-2022 Ketones (U) [Mass/Vol] Trace Negative [facility] - UrinalysisOrder ed By: Gypsy Mcmahon on 02-16-2022 Hyaline casts LM Ql (Urine sed) 9-19 [LPF] 0-8 [facility] Nitrite Test strip Ql (U)Ord ered By: Gypsy Mcmahon on 02-16-2022 Nitrite Ql (U) Positive Negative [facility] Protein Auto test strip (U) [Mass/Vol]Ordered By: Gypsy Mcmahon on 02-16-2022 Protein (U) [Mass/Vol] Negative Negative [facility] Specific gravity Auto test s trip (U) [Rel density]Ordered By: Gypsy Mcmahon on 02-16-2022 Specific gravity (U) [Rel density] 1.018 1.001-1.03 0 [facility] Squamous epithelial cells de tection in urine sediment by light microscopyOrdered By: Gypsy Mcmahon on 02-16-2022 Epithelial cells.squamous LM Ql (Urine sed) 5-9 [HPF] 0-2 [facility] Urine Cultureon 02-16-2022 Urine Culture >100,000 [facility] Other Urine Culture <16 Susceptible [employer] Other Urine Culture <8/4 Susceptible [employer] Other Urine Culture <4 Susceptible [employer] Other Urine Culture <2 Susceptible [employer] Other Urine Culture <1 Susceptible [employer] Other Urine Culture <0.25 Susceptible [employer] Other Urine Culture <0.5 Susceptible [employer] Other Urine Culture <32 Susceptible [employer] Other Urine Culture <0.5/9.5 Susceptible [employer] Other Urine bacteria detection by automated methodOrdered By: Gypsy Mcmahon on 02-16-2022 Bacteria Auto Ql (U) 2+ None Seen [facility] Urine clarity by refractomet ry automatedOrdered By: Gypsy Mcmahon on 02-16-2022 Clarity Refractometry automated (U) Cloudy Clear [facility] Urine culture routineOrdered By: Gypsy Mcmahon on 02-16-2022 Bacteria identified Cx Nom (U) Klebsiella variicola [facility] Urine glucose measurement by automated test strip (mass/volume)Ordered By: Gypsy Mcmahon on 02-16-2022 Glucose Auto test strip (U) [Mass/Vol] Normal mg/dL Normal [facility] Urine hemoglobin detection b y automated test stripOrdered By: Gypsy Mcmahon on 02-16-2022 Hemoglobin Auto test strip Ql (U) Negative Negative [facility] Urine leukocyte esterase det ection by automated test stripOrdered By: Gypsy Mcmahon on 02-16-2022 Leukocyte esterase Auto test strip Ql (U) 2+ Negative [facility] Urobilinogen Auto test strip (U) [Mass/Vol]Ordered By: Gypsy Mcmahon on 02-16-2022 Urobilinogen (U) [Mass/Vol] Normal mg/dL Normal [facility] pH Auto test strip (U)Ordere d By: Gypys Mcmahon on 02-16-2022 pH (U) 5.5 [pH] 5.0-9.0 [facility] CBC AUTO DIFFon 01-15-2022 BASO # 0.0 103/ul Normal 0.0-0.1 [facility] Comment on above: Performed By: #### C BC #### [facility] [address] [address] [address] Anthony Bonilla Basophils/100 WBC (Bld) 0.5 % Normal 0.2-2.0 [facility] Comment on above: Performed By: #### C BC #### [facility] [address] [place] [address] Dr. Anthony Bonilla EO # 0.1 103/ul Normal 0.0-0.7 [facility] Comment on above: Performed By: #### C BC #### [facility] [address] [place] [address] Dr. Anthony Bonilla Eosinophils/100 WBC (Bld) 0.9 % Normal 0.9-7.0 [facility] Comment on above: Performed By: #### C BC #### [facility] [address] [place] [address] Dr. Anthony Bonilla Erythrocyte distribution width (RBC) [Ratio] 14.8 % Normal 11.0-15.0 [facility] Comment on above: Performed By: #### C BC #### [facility] [address] [place] [address] Dr. Anthony Bonilla Hematocrit (Bld) [Volume fraction] 30.3 % Critically low 36.0-48.0 [facility] Comment on above: Performed By: #### C BC #### [facility] [address] [place] [address] Dr. Anthony Bonilla Hemoglobin (Bld) [Mass/Vol] 9.8 g/dL Critically low 12.0-16.0 [facility] Comment on above: Performed By: #### C BC #### [facility] [address] [place] [address] Dr. Anthony Bonilla IG # 0.03 10e3/ul Normal 0.00-0.03 [facility] Comment on above: Performed By: #### C BC #### [facility] [address] [place] [address] Dr. Anthony Bonilla IG % 0.3 % Normal 0.0-0.5 [facility] Comment on above: Performed By: #### C BC #### [facility] [address] [place] [address] Dr. Anthony Bonilla LYMPH # 1.4 103/ul Normal 1.2-3.8 [facility] Comment on above: Performed By: #### C BC #### [facility] [address] [place] [address] Dr. Anthony Bonilla Lymphocytes/100 WBC (Bld) 15.7 % Critically low 20.5-60.0 [facility] Comment on above: Performed By: #### C BC #### [facility] [address] [place] [address] Dr. Anthony Bonilla MANUAL DIFF REQ NO Normal [facility] Comment on above: Performed By: #### C BC #### [facility] [address] [place] [address] Dr. Anthony Bonilla MCH (RBC) [Entitic mass] 30.0 pg Normal 26.7-34.0 [facility] Comment on above: Performed By: #### C BC #### [facility] [address] [place] [address] Dr. Anthony Bonilla MCHC (RBC) [Mass/Vol] 32.3 g/dL Normal 29.9-35.2 [facility] Comment on above: Performed By: #### C BC #### [facility] [address] [place] [address] Dr. Anthony Bonilla MCV (RBC) [Entitic vol] 92.7 fL Normal 81.0-99.0 [facility] Comment on above: Performed By: #### C BC #### [facility] [address] [place] [address] Dr. Anthony Bonilla MONO # 1.1 103/ul Critically high 0.3-0.8 [facility] Comment on above: Performed By: #### C BC #### [facility] [address] [place] [address] Dr. Anthony Bonilla Monocytes/100 WBC (Bld) 12.0 % Normal 1.7-12.0 [facility] Comment on above: Performed By: #### C BC #### [facility] [address] [place] [address] Dr. Anthony Bonilla NEUT # 6.2 103/ul Normal 1.4-6.5 [facility] Comment on above: Performed By: #### C BC #### [facility] [address] [place] [address] Dr. Anthony Bonilla Neutrophils/100 WBC (Bld) 70.6 % Normal 43.0-75.0 [facility] Comment on above: Performed By: #### C BC #### [facility] [address] [place] [address] Dr. Anthony Bonilla Platelet mean volume (Bld) [Entitic vol] 9.8 fL Normal 9.5-13.5 [facility] Comment on above: Performed By: #### C BC #### [facility] [address] [place] [address] Dr. Anthony Bonilla PLT 305 103/ul Normal 150-450 [facility] Comment on above: Performed By: #### C BC #### [facility] [address] [place] [address] Dr. Anthony Bonilla RBC 3.27 106/ul Critically low 4.20-5.40 [facility] Comment on above: Performed By: #### C BC #### [facility] [address] [place] [address] Dr. Anthony Bonilla WBC 8.7 103/ul Normal 4.0-11.0 [facility] Comment on above: Performed By: #### C BC #### [facility] [address] [place] [address] Dr. Anthony Bonilla PROF CHEM 8 (BAS METB)on Anion gap [Moles/Vol] 12.2 mmol/L Normal [facility] Comment on above: Performed By: #### U RCX #### [facility] [address] [place] [address] Dr. Anthony Bonilla Calcium [Mass/Vol] 9.1 mg/dL Normal 8.5-10.1 [facility] Comment on above: Performed By: #### U RCX #### [facility] [address] [address] [address] Anthony Bonilla Chloride [Moles/Vol] 104 mmol/L Normal 98-107 [facility] Comment on above: Performed By: #### U RCX #### [facility] [address] [address] [address] Anthony Bonilla CO2 [Moles/Vol] 24.4 mmol/L Normal 21.0-32.0 [facility] Comment on above: Performed By: #### U RCX #### [facility] [address] [address] [address] Anthony Bonilla Creatinine [Mass/Vol] 1.20 mg/dL Critically high 0.55-1.02 [facility] Comment on above: Performed By: #### U RCX #### [facility] [address] [address] [address] Anthony Bonilla EGFR-AF [place]ER 52 mL/min/1.73m2 Critically low >=60 [facility] Comment on above: Performed By: #### U RCX #### [facility] [address] [place] [address] Dr. Anthony Bonilla EGFR-NON AF [place] 43 mL/min/1.73m2 Critically low >=60 [facility] Comment on above: Performed By: #### U RCX #### [facility] [address] [address] [address] Anthony Bonilla Glucose [Mass/Vol] 81 mg/dL Normal 74-106 [facility] Comment on above: Performed By: #### U RCX #### [facility] [address] [address] [address] Anthony Bonilla Potassium [Moles/Vol] 3.6 mmol/L Normal 3.5-5.1 [facility] Comment on above: Performed By: #### U RCX #### [facility] [address] [place] [address] Dr. Anthony Bonilla Sodium [Moles/Vol] 137 mmol/L Normal 136-145 [facility] Comment on above: Performed By: #### U RCX #### [facility] [address] [place] [address] Dr. Anthony Bonilla Urea nitrogen [Mass/Vol] 21.0 mg/dL Critically high 7.0-18.0 [facility] Comment on above: Performed By: #### U RCX #### [facility] [address] [place] [address] Dr. Anthony Bonilla Urea nitrogen/Creatinine [Mass ratio] 17.5 mg/mg Normal [facility] Comment on above: Performed By: #### U RCX #### [facility] [address] [place] [address] Dr. Anthony Bonilla CULTURE URINEon 12-29-2021 CULTURE [...] Trimethoprim/Sulfamethoxazol e <=20 S F Normal [facility] Comment on above: Performed By: #### U RCX #### [facility] [address] [address] [address] Anthony Bonilla ER URINE PROFILEon 2 Bilirubin Ql (U) SMALL Abnormal NEGATIVE [facility] Comment on above: Performed By: #### C BC #### [facility] [address] [place] [address] Dr. Anthony Bonilla Clarity (U) SL CLOUDY Abnormal CLEAR [facility] Comment on above: Performed By: #### C BC #### [facility] [address] [place] [address] Dr. Anthony Bonilla Color (U) YELLOW Normal YELLOW [facility] Comment on above: Performed By: #### C BC #### [facility] [address] [place] [address] Dr. Anthony RAMIREZD A micrscopic examina tion will be performed if indicated. Normal [facility] Comment on above: Performed By: #### C BC #### [facility] [address] [place] [address] Dr. Anthony Bonilla Glucose Ql (U) Negative Normal NEGATIVE [facility] Comment on above: Performed By: #### C BC #### [facility] [address] [place] [address] Dr. Anthony Bonilla Hemoglobin Ql (U) Negative Normal NEGATIVE [facility] Comment on above: Performed By: #### C BC #### [facility] [address] [place] [address] Dr. Anthony Bonilla Ketones Ql (U) TRACE Abnormal NEGATIVE [facility] Comment on above: Performed By: #### C BC #### [facility] [address] [place] [address] Dr. Anthony Bonilla LEUKOCYTES MODERATE Abnormal NEGATIVE [facility] Comment on above: Performed By: #### C BC #### [facility] [address] [place] [address] Dr. Anthony Bonilla Nitrite Ql (U) Positive Abnormal NEGATIVE [facility] Comment on above: Performed By: #### C BC #### [facility] [address] [place] [address] Dr. Anthony Bonilla pH (U) 7.5 [pH] Normal 5-9 [facility] Comment on above: Performed By: #### C BC #### [facility] [address] [place] [address] Dr. Anthony Bonilla Protein (U) [Mass/Vol] 30 mg/dL Abnormal NEGATIVE/ TRACE [facility] Comment on above: Performed By: #### C BC #### [facility] [address] [place] [address] Dr. Anthony Bonilla SPEC GRAVITY 1.020 Normal 1.005-<=1. 025 [facility] Comment on above: Performed By: #### C BC #### [facility] [address] [place] [address] Dr. Anthony Bonilla UR MICRO IND INDICATED Normal [facility] Comment on above: Performed By: #### C BC #### [facility] [address] [place] [address] Dr. Anthony Bonilla Urobilinogen Qn (U) 0.2 {Gen'U}/dL Normal 0.2 - 1. 0 [facility] Comment on above: Performed By: #### C BC #### [facility] [address] [place] [address] Dr. Anthony Bonilla URINE MICROSCOPIC ONLYon BACTERIA TRACE Abnormal NONE SEEN [facility] Comment on above: Performed By: #### C BC #### [facility] [address] [place] [address] Dr. Anthony Bonilla Bacteria identified Cx Nom (U) INDICATED Normal [facility] Comment on above: Performed By: #### C BC #### [facility] [address] [place] [address] Dr. Anthony Bonilla CAST NONE SEEN Normal NONE SEEN [facility] Comment on above: Performed By: #### C BC #### [facility] [address] [place] [address] Dr. Anthony Bonilla Crystals LM Nom (Urine sed) NONE SEEN Normal NONE SEEN [facility] Comment on above: Performed By: #### C BC #### [facility] [address] [place] [address] Dr. Anthony Bonilla Epithelial cells LM Ql (Urine sed) FEW Abnormal NONE SEEN /RARE [facility] Comment on above: Performed By: #### C BC #### [facility] [address] [place] [address] Dr. Anthony Bonilla MUCOUS NONE SEEN Normal NONE SEEN [facility] Comment on above: Performed By: #### C BC #### [facility] [address] [place] [address] Dr. Anthony Bonilla RBC 0-2 Normal 0-2 [facility] Comment on above: Performed By: #### C BC #### [facility] [address] [place] [address] Dr. Anthony Bonilla WBC 5-10 Abnormal NONE SEEN [facility] Comment on above: Performed By: #### C BC #### [facility] [address] [place] [address] Dr. Anthony Bonilla PRBC LEUKOREDUCEDon 11-20-19 PRBC LEUKOREDUCED Cross Match Result Compatible Unit Blood Type A Pos Unit Number [id number] Status Information Transfused Product ID Red Blood Cells Product Code [id number] Normal [facility] Comment on above: Performed By: #### P RBC #### [facility] [address] [place] [address] Dr. Anthony Bonilla CBC AUTO DIFFon 11-10-2021 BASO # 0.0 103/ul Normal 0.0-0.1 [facility] Comment on above: Performed By: #### C BC #### [facility] [address] [place] [address] Dr. Anthony Bonilla Basophils/100 WBC (Bld) 0.7 % Normal 0.2-2.0 [facility] Comment on above: Performed By: #### C BC #### [facility] [address] [place] [address] Dr. Anthony Bonilla EO # 0.2 103/ul Normal 0.0-0.7 [facility] Comment on above: Performed By: #### C BC #### [facility] [address] [place] [address] Dr. Anthony Bonilla Eosinophils/100 WBC (Bld) 2.7 % Normal 0.9-7.0 [facility] Comment on above: Performed By: #### C BC #### [facility] [address] [place] [address] Dr. Anthony Bonilla Erythrocyte distribution width (RBC) [Ratio] 16.3 % Critically high 11.0-15.0 [facility] Comment on above: Performed By: #### C BC #### [facility] [address] [place] [address] Dr. Anthony Bonilla Hematocrit (Bld) [Volume fraction] 29.0 % Critically low 36.0-48.0 [facility] Comment on above: Performed By: #### C BC #### [facility] [address] [place] [address] Dr. Anthony Bonilla Hemoglobin (Bld) [Mass/Vol] 9.4 g/dL Critically low 12.0-16.0 [facility] Comment on above: Performed By: #### C BC #### [facility] [address] [place] [address] Dr. Anthony Bonilla IG # 0.04 10e3/ul Critically high 0.00-0.03 [facility] Comment on above: Performed By: #### C BC #### [facility] [address] [place] [address] Dr. Anthony Bonilla IG % 0.7 % Critically high 0.0-0.5 [facility] Comment on above: Performed By: #### C BC #### [facility] [address] [place] [address] Dr. Anthony Bonilla LYMPH # 1.2 103/ul Normal 1.2-3.8 [facility] Comment on above: Performed By: #### C BC #### [facility] [address] [place] [address] Dr. Anthony Bonilla Lymphocytes/100 WBC (Bld) 21.5 % Normal 20.5-60.0 [facility] Comment on above: Performed By: #### C BC #### [facility] [address] [place] [address] Dr. Anthony Bonilla MANUAL DIFF REQ NO Normal [facility] Comment on above: Performed By: #### C BC #### [facility] [address] [place] [address] Dr. Anthony Bonilla MCH (RBC) [Entitic mass] 32.3 pg Normal 26.7-34.0 [facility] Comment on above: Performed By: #### C BC #### [facility] [address] [place] [address] Dr. Anthony Bonilla MCHC (RBC) [Mass/Vol] 32.4 g/dL Normal 29.9-35.2 [facility] Comment on above: Performed By: #### C BC #### [facility] [address] [place] [address] Dr. Anthony Bonilla MCV (RBC) [Entitic vol] 99.7 fL Critically high 81.0-99.0 [facility] Comment on above: Performed By: #### C BC #### [facility] [address] [place] [address] Dr. Anthony Bonilla MONO # 0.7 103/ul Normal 0.3-0.8 [facility] Comment on above: Performed By: #### C BC #### [facility] [address] [place] [address] Dr. Anthony Bonilla Monocytes/100 WBC (Bld) 12.6 % Critically high 1.7-12.0 [facility] Comment on above: Performed By: #### C BC #### [facility] [address] [place] [address] Dr. Anthony Bonilla NEUT # 3.4 103/ul Normal 1.4-6.5 [facility] Comment on above: Performed By: #### C BC #### [facility] [address] [place] [address] Dr. Anthony Bonilla Neutrophils/100 WBC (Bld) 61.8 % Normal 43.0-75.0 [facility] Comment on above: Performed By: #### C BC #### [facility] [address] [place] [address] Dr. Anthony Bonilla Platelet mean volume (Bld) [Entitic vol] 9.0 fL Critically low 9.5-13.5 [facility] Comment on above: Performed By: #### C BC #### [facility] [address] [place] [address] Dr. Anthony Bonilla PLT 429 103/ul Normal 150-450 [facility] Comment on above: Performed By: #### C BC #### [facility] [address] [place] [address] Dr. Anthony Bonilla RBC 2.91 106/ul Critically low 4.20-5.40 [facility] Comment on above: Performed By: #### C BC #### [facility] [address] [place] [address] Dr. Anthony Bonilla WBC 5.5 103/ul Normal 4.0-11.0 [facility] Comment on above: Performed By: #### C BC #### [facility] [address] [place] [address] Dr. Anthony Bonilla PROF CHEM 8 (BAS METB)on Anion gap [Moles/Vol] 11.0 mmol/L Normal [facility] Comment on above: Performed By: #### B MP #### [facility] [address] [place] [address] Dr. Anthony Bonilla Calcium [Mass/Vol] 9.2 mg/dL Normal 8.5-10.1 [facility] Comment on above: Performed By: #### B MP #### [facility] [address] [place] [address] Dr. Anthony Bonilla Chloride [Moles/Vol] 107 mmol/L Normal 98-107 [facility] Comment on above: Performed By: #### B MP #### [facility] [address] [place] [address] Dr. Anthony Bonilla CO2 [Moles/Vol] 27.4 mmol/L Normal 21.0-32.0 [facility] Comment on above: Performed By: #### B MP #### [facility] [address] [place] [address] Dr. Anthony Bonilla Creatinine [Mass/Vol] 1.12 mg/dL Critically high 0.55-1.02 [facility] Comment on above: Performed By: #### B MP #### [facility] [address] [address] [address] Anthony Bonilla EGFR-AF [place] 56 mL/min/1.73m2 Critically low >=60 [facility] Comment on above: Performed By: #### B MP #### [facility] [address] [address] [address] Anthony Bonilla EGFR-NON AF [place] 46 mL/min/1.73m2 Critically low >=60 [facility] Comment on above: Performed By: #### B MP #### [facility] [address] [place] [address] Dr. Anthony Bonilla Glucose [Mass/Vol] 89 mg/dL Normal 74-106 [facility] Comment on above: Performed By: #### B MP #### [facility] [address] [address] [address] Anthony Bonilla Potassium [Moles/Vol] 4.4 mmol/L Normal 3.5-5.1 [facility] Comment on above: Performed By: #### B MP #### [facility] [address] [address] [address] Anthony Bonilla Sodium [Moles/Vol] 141 mmol/L Normal 136-145 [facility] Comment on above: Performed By: #### B MP #### [facility] [address] [address] [address] Anthony Bonilla Urea nitrogen [Mass/Vol] 18.0 mg/dL Normal 7.0-18.0 [facility] Comment on above: Performed By: #### B MP #### [facility] [address] [address] [address] Anthony Bonilla Urea nitrogen/Creatinine [Mass ratio] 16.1 mg/mg Normal [facility] Comment on above: Performed By: #### B MP #### [facility] [address] [place] [address] Dr. Anthony Bonilla CBC AUTO DIFFon 11-04-2021 BASO # 0.0 103/ul Normal 0.0-0.1 [facility] Comment on above: Performed By: #### C BC #### [facility] [address] [place] [address] Dr. Anthony Bonilla Basophils/100 WBC (Bld) 0.2 % Normal 0.2-2.0 [facility] Comment on above: Performed By: #### C BC #### [facility] [address] [place] [address] Dr. Anthony Bonilla EO # 0.1 103/ul Normal 0.0-0.7 [facility] Comment on above: Performed By: #### C BC #### [facility] [address] [place] [address] Dr. Anthony Bonilla Eosinophils/100 WBC (Bld) 0.8 % Critically low 0.9-7.0 [facility] Comment on above: Performed By: #### C BC #### [facility] [address] [place] [address] Dr. Anthony Bonilla Erythrocyte distribution width (RBC) [Ratio] 16.7 % Critically high 11.0-15.0 [facility] Comment on above: Performed By: #### C BC #### [facility] [address] [place] [address] Dr. Anthony Bonilla Hematocrit (Bld) [Volume fraction] 25.6 % Critically low 36.0-48.0 [facility] Comment on above: Performed By: #### C BC #### [facility] [address] [place] [address] Dr. Anthony Bonilla Hemoglobin (Bld) [Mass/Vol] 8.5 g/dL Critically low 12.0-16.0 [facility] Comment on above: Performed By: #### C BC #### [facility] [address] [place] [address] Dr. Anthony Bonilla IG # 0.05 10e3/ul Critically high 0.00-0.03 [facility] Comment on above: Performed By: #### C BC #### [facility] [address] [place] [address] Dr. Anthony Bonilla IG % 0.5 % Normal 0.0-0.5 [facility] Comment on above: Performed By: #### C BC #### [facility] [address] [place] [address] Dr. Anthony Bonilla LYMPH # 0.6 103/ul Critically low 1.2-3.8 [facility] Comment on above: Performed By: #### C BC #### [facility] [address] [place] [address] Dr. Anthony Bonilla Lymphocytes/100 WBC (Bld) 6.2 % Critically low 20.5-60.0 [facility] Comment on above: Performed By: #### C BC #### [facility] [address] [place] [address] Dr. Anthony Bonilla MANUAL DIFF REQ NO Normal [facility] Comment on above: Performed By: #### C BC #### [facility] [address] [place] [address] Dr. Anthony Bonilla MCH (RBC) [Entitic mass] 31.6 pg Normal 26.7-34.0 [facility] Comment on above: Performed By: #### C BC #### [facility] [address] [place] [address] Dr. Anthony Bonilla MCHC (RBC) [Mass/Vol] 33.2 g/dL Normal 29.9-35.2 [facility] Comment on above: Performed By: #### C BC #### [facility] [address] [place] [address] Dr. Anthony Bonilla MCV (RBC) [Entitic vol] 95.2 fL Normal 81.0-99.0 [facility] Comment on above: Performed By: #### C BC #### [facility] [address] [place] [address] Dr. Anthony Bonilla MONO # 0.6 103/ul Normal 0.3-0.8 [facility] Comment on above: Performed By: #### C BC #### [facility] [address] [place] [address] Dr. Anthony Bonilla Monocytes/100 WBC (Bld) 6.1 % Normal 1.7-12.0 [facility] Comment on above: Performed By: #### C BC #### [facility] [address] [address] [address] Anthony Bonilla NEUT # 8.8 103/ul Critically high 1.4-6.5 [facility] Comment on above: Performed By: #### C BC #### [facility] [address] [address] [address] Anthony Bonilla Neutrophils/100 WBC (Bld) 86.2 % Critically high 43.0-75.0 [facility] Comment on above: Performed By: #### C BC #### [facility] [address] [address] [address] Anthony Bonilla Platelet mean volume (Bld) [Entitic vol] 9.8 fL Normal 9.5-13.5 [facility] Comment on above: Performed By: #### C BC #### [facility] [address] [place] [address] Dr. Anthony Bonilla PLT 156 103/ul Normal 150-450 [facility] Comment on above: Performed By: #### C BC #### [facility] [address] [address] [address] Anthony Bonilla RBC 2.69 106/ul Critically low 4.20-5.40 [facility] Comment on above: Performed By: #### C BC #### [facility] [address] [place] [address] Dr. Anthony Bonilla WBC 10.3 103/ul Normal 4.0-11.0 [facility] Comment on above: Performed By: #### C BC #### [facility] [address] [place] [address] Dr. Anthony Bonilla CULTURE URINEon 11-04-2021 CULTURE [...] F Trimethoprim/Sulfamethoxazol e <=20 S F Normal [facility] Comment on above: Performed By: #### U RCX #### [facility] [address] [place] [address] Dr. Anthony Bonilla PROF CHEM 8 (BAS METB)on Anion gap [Moles/Vol] 12.9 mmol/L Normal [facility] Comment on above: Performed By: #### U RCX #### [facility] [address] [place] [address] Dr. Anthony Boinlla Calcium [Mass/Vol] 8.6 mg/dL Normal 8.5-10.1 [facility] Comment on above: Performed By: #### U RCX #### [facility] [address] [place] [address] Dr. Anthony Bonilla Chloride [Moles/Vol] 108 mmol/L Critically high 98-107 [facility] Comment on above: Performed By: #### U RCX #### [facility] [address] [place] [address] Dr. Anthony Bonilla CO2 [Moles/Vol] 23.1 mmol/L Normal 21.0-32.0 [facility] Comment on above: Performed By: #### U RCX #### [facility] [address] [place] [address] Dr. Anthony Bonilla Creatinine [Mass/Vol] 0.98 mg/dL Normal 0.55-1.02 [facility] Comment on above: Performed By: #### U RCX #### [facility] [address] [place] [address] Dr. Anthony Bonilla EGFR-AF [place]ER >60 Normal >=60 [facility] Comment on above: Performed By: #### U RCX #### [facility] [address] [place] [address] Dr. Anthony Bonilla EGFR-NON AF [place]ER 54 mL/min/1.73m2 Critically low >=60 [facility] Comment on above: Performed By: #### U RCX #### [facility] [address] [place] [address] Dr. Anthony Bonilla Glucose [Mass/Vol] 86 mg/dL Normal 74-106 [facility] [facility] Comment on above: Performed By: #### U RCX #### [facility] [address] [address] [address] Anthony Bonilla Potassium [Moles/Vol] 4.0 mmol/L Normal 3.5-5.1 [facility] Comment on above: Performed By: #### U RCX #### [facility] [address] [place] [address] Dr. Anthony Bonilla Sodium [Moles/Vol] 140 mmol/L Normal 136-145 [facility] Comment on above: Performed By: #### U RCX #### [facility] [address] [place] [address] Dr. Anthony Bonilla Urea nitrogen [Mass/Vol] 31.0 mg/dL Critically high 7.0-18.0 [facility] Comment on above: Performed By: #### U RCX #### [facility] [address] [place] [address] Dr. Anthony Bonilla Urea nitrogen/Creatinine [Mass ratio] 31.6 mg/mg Normal [facility] Comment on above: Performed By: #### U RCX #### [facility] [address] [place] [address] Dr. Anthony Bonilla CBC AUTO DIFFon 11-03-2021 BASO # 0.0 103/ul Normal 0.0-0.1 [facility] Comment on above: Performed By: #### C BC #### [facility] [address] [place] [address] Dr. Anthony Bonilla Basophils/100 WBC (Bld) 0.3 % Normal 0.2-2.0 [facility] Comment on above: Performed By: #### C BC #### [facility] [address] [place] [address] Dr. Anthony Bonilla EO # 0.1 103/ul Normal 0.0-0.7 [facility] Comment on above: Performed By: #### C BC #### [facility] [address] [place] [address] Dr. Anthony Bonilla Eosinophils/100 WBC (Bld) 0.6 % Critically low 0.9-7.0 [facility] Comment on above: Performed By: #### C BC #### [facility] [address] [place] [address] Dr. Anthony Bonilla Erythrocyte distribution width (RBC) [Ratio] 14.0 % Normal 11.0-15.0 [facility] Comment on above: Performed By: #### C BC #### [facility] [address] [place] [address] Dr. Anthony Bonilla Hematocrit (Bld) [Volume fraction] 23.1 % Critically low 36.0-48.0 [facility] Comment on above: Result Comment: Flui ds given Performed By: #### C BC #### [facility] [address] [place] [address] Dr. Anthony Bonilla Hemoglobin (Bld) [Mass/Vol] 7.6 g/dL Critically low 12.0-16.0 [facility] Comment on above: Performed By: #### C BC #### [facility] [address] [place] [address] Dr. Anthony Bonilla IG # 0.07 10e3/ul Critically high 0.00-0.03 [facility] Comment on above: Performed By: #### C BC #### [facility] [address] [place] [address] Dr. Anthony Bonilla IG % 0.6 % Critically high 0.0-0.5 [facility] Comment on above: Performed By: #### C BC #### [facility] [address] [place] [address] Dr. Anthony Bonilla LYMPH # 0.7 103/ul Critically low 1.2-3.8 [facility] Comment on above: Performed By: #### C BC #### [facility] [address] [place] [address] Dr. Anthony Bonilla Lymphocytes/100 WBC (Bld) 5.7 % Critically low 20.5-60.0 [facility] Comment on above: Performed By: #### C BC #### [facility] [address] [place] [address] Dr. Anthony Bonilla MANUAL DIFF REQ NO Normal [facility] Comment on above: Performed By: #### C BC #### [facility] [address] [place] [address] Dr. Anthony Bonilla MCH (RBC) [Entitic mass] 32.6 pg Normal 26.7-34.0 [facility] Comment on above: Performed By: #### C BC #### [facility] [address] [place] [address] Dr. Anthony Bonilla MCHC (RBC) [Mass/Vol] 32.9 g/dL Normal 29.9-35.2 [facility] Comment on above: Performed By: #### C BC #### [facility] [address] [place] [address] Dr. Anthony Bonilla MCV (RBC) [Entitic vol] 99.1 fL Critically high 81.0-99.0 [facility] Comment on above: Performed By: #### C BC #### [facility] [address] [place] [address] Dr. Anthony Bonilla MONO # 0.8 103/ul Normal 0.3-0.8 [facility] Comment on above: Performed By: #### C BC #### [facility] [address] [place] [address] Dr. Anthony Bonilla Monocytes/100 WBC (Bld) 6.8 % Normal 1.7-12.0 [facility] Comment on above: Performed By: #### C BC #### [facility] [address] [place] [address] Dr. Anthony Bonilla NEUT # 9.8 103/ul Critically high 1.4-6.5 [facility] Comment on above: Performed By: #### C BC #### [facility] [address] [place] [address] Dr. Anthony Bonilla Neutrophils/100 WBC (Bld) 86.0 % Critically high 43.0-75.0 [facility] Comment on above: Performed By: #### C BC #### [facility] [address] [place] [address] Dr. Anthony Bonilla Platelet mean volume (Bld) [Entitic vol] 9.5 fL Normal 9.5-13.5 [facility] Comment on above: Performed By: #### C BC #### [facility] [address] [place] [address] Dr. Anthony Bonilla PLT 160 103/ul Normal 150-450 [facility] Comment on above: Performed By: #### C BC #### [facility] [address] [place] [address] Dr. Anthony Bonilla RBC 2.33 106/ul Critically low 4.20-5.40 [facility] Comment on above: Performed By: #### C BC #### [facility] [address] [place] [address] Dr. Anthony Bonilla WBC 11.4 103/ul Critically high 4.0-11.0 [facility] Comment on above: Performed By: #### C BC #### [facility] [address] [place] [address] Dr. Anthony Bonilla HEMOGLOBIN AND HEMATOCRITon 11-03-2021 Hematocrit (Bld) [Volume fraction] 27.0 % Critically low 36.0-48.0 [facility] Comment on above: Performed By: #### U RCX #### [facility] [address] [place] [address] Dr. Anthony Bonilla Hemoglobin (Bld) [Mass/Vol] 9.1 g/dL Critically low 12.0-16.0 [facility] Comment on above: Performed By: #### U RCX #### [facility] [address] [place] [address] Dr. Anthony Bonilla OCC BLD IMMUNO SCREENon 10-10 OCCULT BLOOD Positive Abnormal NEGATIVE [facility] Comment on above: Performed By: #### C BC #### [facility] [address] [place], [place] [id number] Dr. Anthony Bonilla PROF CHEM 8 (BAS METB)on Anion gap [Moles/Vol] 10.7 mmol/L Normal [facility] Comment on above: Performed By: #### C BC #### [facility] [address] [place] [address] Dr. Anthony Bonilla Calcium [Mass/Vol] 8.6 mg/dL Normal 8.5-10.1 [facility] Comment on above: Performed By: #### C BC #### [facility] [address] [place] [address] Dr. Anthony Bonilla Chloride [Moles/Vol] 107 mmol/L Normal 98-107 [facility] Comment on above: Performed By: #### C BC #### [facility] [address] [place] [address] Dr. Anthony Bonilla CO2 [Moles/Vol] 24.4 mmol/L Normal 21.0-32.0 [facility] Comment on above: Performed By: #### C BC #### [facility] [address] [place] [address] Dr. Anthony Bonilla Creatinine [Mass/Vol] 0.98 mg/dL Normal 0.55-1.02 [facility] Comment on above: Performed By: #### C BC #### [facility] [address] [place] [address] Dr. Anthony Bonilla EGFR-AF [place] ISLANDER >60 Normal >=60 [facility] Comment on above: Performed By: #### C BC #### [facility] [address] [place] [address] Dr. Anthony Bonilla EGFR-NON AF [place]ER 54 mL/min/1.73m2 Critically low >=60 [facility] Comment on above: Performed By: #### C BC #### [facility] [address] [place] [address] Dr. Anthony Bonilla Glucose [Mass/Vol] 98 mg/dL Normal 74-106 [facility] Comment on above: Performed By: #### C BC #### [facility] [address] [place] [address] Dr. Anthony Bonilla Potassium [Moles/Vol] 4.1 mmol/L Normal 3.5-5.1 [facility] Comment on above: Performed By: #### C BC #### [facility] [address] [place] [address] Dr. Anthony Bonilla Sodium [Moles/Vol] 138 mmol/L Normal 136-145 [facility] Comment on above: Performed By: #### C BC #### [facility] [address] [place] [address] Dr. Anthony Bonilla Urea nitrogen [Mass/Vol] 43.0 mg/dL Critically high 7.0-18.0 [facility] Comment on above: Performed By: #### C BC #### [facility] [address] [place] [address] Dr. Anthony Bonilla Urea nitrogen/Creatinine [Mass ratio] 43.9 mg/mg Normal [facility] Comment on above: Performed By: #### C BC #### [facility] [address] [place] [address] Dr. Anthony Bonilla TYPE AND SCREENon 11-03-2021 TYPE AND SCREEN Negative Normal [facility] Comment on above: Performed By: #### C BC #### [facility] [address] [place] [address] Dr. Anthony Bonilla CBC AUTO DIFFon 11-02-2021 BASO # 0.0 103/ul Normal 0.0-0.1 [facility] Comment on above: Performed By: #### U RCX #### [facility] [address] [place] [address] Dr. Anthony Bonilla Basophils/100 WBC (Bld) 0.3 % Normal 0.2-2.0 [facility] Comment on above: Performed By: #### U RCX #### [facility] [address] [place] [address] Dr. Anthony Bonilla EO # 0.0 103/ul Normal 0.0-0.7 [facility] Comment on above: Performed By: #### U RCX #### [facility] [address] [place] [address] Dr. Anthony Bonilla Eosinophils/100 WBC (Bld) 0.1 % Critically low 0.9-7.0 [facility] Comment on above: Performed By: #### U RCX #### [facility] [address] [place] [address] Dr. Anthony Bonilla Erythrocyte distribution width (RBC) [Ratio] 13.9 % Normal 11.0-15.0 [facility] Comment on above: Performed By: #### U RCX #### [facility] [address] [place] [address] Dr. Anthony Bonilla Hematocrit (Bld) [Volume fraction] 31.8 % Critically low 36.0-48.0 [facility] Comment on above: Performed By: #### U RCX #### [facility] [address] [place] [address] Dr. Anthony Bonilla Hemoglobin (Bld) [Mass/Vol] 10.5 g/dL Critically low 12.0-16.0 [facility] Comment on above: Performed By: #### U RCX #### [facility] [address] [place] [address] Dr. Anthony Bonilla IG # 0.07 10e3/ul Critically high 0.00-0.03 [facility] Comment on above: Performed By: #### U RCX #### [facility] [address] [place] [address] Dr. Anthony Bonilla IG % 0.5 % Normal 0.0-0.5 [facility] Comment on above: Performed By: #### U RCX #### [facility] [address] [place] [address] Dr. Anthony Bonilla LYMPH # 0.9 103/ul Critically low 1.2-3.8 [facility] Comment on above: Performed By: #### U RCX #### [facility] [address] [place] [address] Dr. Anthony Bonilla Lymphocytes/100 WBC (Bld) 6.1 % Critically low 20.5-60.0 [facility] Comment on above: Performed By: #### U RCX #### [facility] [address] [address] [address] Anthony Bonilla MANUAL DIFF REQ NO Normal [facility] Comment on above: Performed By: #### U RCX #### [facility] [address] [address] [address] Anthony Bonilla MCH (RBC) [Entitic mass] 32.7 pg Normal 26.7-34.0 [facility] Comment on above: Performed By: #### U RCX #### [facility] [address] [address] [address] Anthony Bonilla MCHC (RBC) [Mass/Vol] 33.0 g/dL Normal 29.9-35.2 [facility] Comment on above: Performed By: #### U RCX #### [facility] [address] [place] [address] Dr. Anthony Bonilla MCV (RBC) [Entitic vol] 99.1 fL Critically high 81.0-99.0 [facility] Comment on above: Performed By: #### U RCX #### [facility] [address] [address] [address] Anthony Bonilla MONO # 1.0 103/ul Critically high 0.3-0.8 [facility] Comment on above: Performed By: #### U RCX #### [facility] [address] [address] [address] Anthony Bonilla Monocytes/100 WBC (Bld) 6.8 % Normal 1.7-12.0 [facility] Comment on above: Performed By: #### U RCX #### [facility] [address] [place] [address] Dr. Anthony Bonilla NEUT # 12.1 103/ul Critically high 1.4-6.5 [facility] Comment on above: Performed By: #### U RCX #### [facility] [address] [place] [address] Dr. Anthony Bonilla Neutrophils/100 WBC (Bld) 86.2 % Critically high 43.0-75.0 [facility] Comment on above: Performed By: #### U RCX #### [facility] [address] [address] [address] Anthony Bonilla Platelet mean volume (Bld) [Entitic vol] 9.8 fL Normal 9.5-13.5 [facility] Comment on above: Performed By: #### U RCX #### [facility] [address] [address] [address] Anthony Bonilla PLT 175 103/ul Normal 150-450 [facility] Comment on above: Performed By: #### U RCX #### [facility] [address] [address] [address] Anthony Bonilla RBC 3.21 106/ul Critically low 4.20-5.40 [facility] Comment on above: Performed By: #### U RCX #### [facility] [address] [address] [address] Anthony Bonilla WBC 14.0 103/ul Critically high 4.0-11.0 [facility] Comment on above: Performed By: #### U RCX #### [facility] [address] [address] [address] HEAD WO CONon [...] HERNANDO HAMLIN Date: 2021-11-01 22:36 Normal [facility] PROF CHEM 8 (BAS METB)on Anion gap [Moles/Vol] 12.2 mmol/L Normal [facility] Comment on above: Performed By: #### C BC #### [facility] [address] [address] [address] Anthony Bonilla Calcium [Mass/Vol] 8.7 mg/dL Normal 8.5-10.1 [facility] Comment on above: Performed By: #### C BC #### [facility] [address] [address] [address] Anthony Bonilla Chloride [Moles/Vol] 103 mmol/L Normal 98-107 [facility] Comment on above: Performed By: #### C BC #### [facility] [address] [address] [address] Anthony Bonilla CO2 [Moles/Vol] 25.7 mmol/L Normal 21.0-32.0 [facility] Comment on above: Performed By: #### C BC #### [facility] [address] [address] [address] Anthony Bonilla Creatinine [Mass/Vol] 1.08 mg/dL Critically high 0.55-1.02 [facility] Comment on above: Performed By: #### C BC #### [facility] [address] [place] [address] Dr. Anthony Bonilla EGFR-AF [place]ER 58 mL/min/1.73m2 Critically low >=60 [facility] Comment on above: Performed By: #### C BC #### [facility] [address] [address] [address] Anthony Bonilla EGFR-NON AF [place]ER 48 mL/min/1.73m2 Critically low >=60 [facility] Comment on above: Performed By: #### C BC #### [facility] [address] [address] [address] Anthony Bonilla Glucose [Mass/Vol] 84 mg/dL Normal 74-106 [facility] Comment on above: Performed By: #### C BC #### [facility] [address] [address] [address] Anthony Bonilla Potassium [Moles/Vol] 4.9 mmol/L Normal 3.5-5.1 [facility] Comment on above: Performed By: #### C BC #### [facility] [address] [address] [address] Anthony Bonilla Sodium [Moles/Vol] 136 mmol/L Normal 136-145 [facility] Comment on above: Performed By: #### C BC #### [facility] [address] [address] [address] Anthony Bonilla Urea nitrogen [Mass/Vol] 33.0 mg/dL Critically high 7.0-18.0 [facility] Comment on above: Performed By: #### C BC #### [facility] [address] [address] [address] Anthony Bonilla Urea nitrogen/Creatinine [Mass ratio] 30.6 mg/mg Normal [facility] Comment on above: Performed By: #### C BC #### [facility] [address] [address] [address] Antohny Bonilla XR CHEST 1 Von 11-02-2021 XR [...] GIANA HOLLY Date: 2021-11-01 22:05 Normal [facility] CARDIAC DARWIN ADMITon 022 CK [Catalytic activity/Vol] 92 U/L Normal 26-192 [facility] Comment on above: Performed By: #### C BC #### [facility] [address] [id number] [address] Anthony Bonilla CK.MB [Mass/Vol] 1.73 ng/mL Normal <=3.60 [facility] Comment on above: Performed By: #### C BC #### [facility] [address] [address] [address] Anthony Bonilla HSTROP 20.0 pg/mL Normal 4.0-51.3 [facility] Comment on above: Result Comment: CUT- OFF POINTS HAVE BEEN ESTABLISHED BASED ON THE FOURTH UNIVERSAL DEFINITIONS OF MYOCARDIAL INFARCTION. THE UPPER REFERENCE LIMIT (URL) OF TROPONIN, DEFINED THE 99TH PERCENTILE OF cTnI DISTRIBUTION IN A REFERENCE POPULATION, HAS BEEN CONFIRMED THE DECISION THRESHOLD FOR MA DIAGNOSIS. Performed By: #### C BC #### [facility] [address] [place] [address] Dr. Anthony Bonilla CANDIDA 58 ng/mL Normal 9-82 [facility] Comment on above: Performed By: #### C BC #### [facility] [address] [place] [address] Dr. Anthony Bonilla CBC AUTO DIFFon 11-01-2021 BASO # 0.0 103/ul Normal 0.0-0.1 [facility] Comment on above: Performed By: #### U RCX #### [facility] [address] [place] [address] Dr. Anthony Bonilla Basophils/100 WBC (Bld) 0.2 % Normal 0.2-2.0 [facility] Comment on above: Performed By: #### U RCX #### [facility] [address] [place] [address] Dr. Anthony Bonilla EO # 0.0 103/ul Normal 0.0-0.7 [facility] Comment on above: Performed By: #### U RCX #### [facility] [address] [place] [address] Dr. Anthony Bonilla Eosinophils/100 WBC (Bld) 0.0 % Critically low 0.9-7.0 [facility] Comment on above: Performed By: #### U RCX #### [facility] [address] [place] [address] Dr. Anthony Bonilla Erythrocyte distribution width (RBC) [Ratio] 14.1 % Normal 11.0-15.0 [facility] Comment on above: Performed By: #### U RCX #### [facility] [address] [place] [address] Dr. Anthony Bonilla Hematocrit (Bld) [Volume fraction] 36.0 % Normal 36.0-48.0 [facility] Comment on above: Performed By: #### U RCX #### [facility] [address] [address] [address] Anthony Bonilla Hemoglobin (Bld) [Mass/Vol] 12.1 g/dL Normal 12.0-16.0 [facility] Comment on above: Performed By: #### U RCX #### [facility] [address] [address] [address] Anthony Bonilla IG # 0.11 10e3/ul Critically high 0.00-0.03 [facility] Comment on above: Performed By: #### U RCX #### [facility] [address] [address] [address] Anhtony Bonilla IG % 0.5 % Normal 0.0-0.5 [facility] Comment on above: Performed By: #### U RCX #### [facility] [address] [address] [address] Anthony Bonilla LYMPH # 0.7 103/ul Critically low 1.2-3.8 [facility] Comment on above: Performed By: #### U RCX #### [facility] [address] [address] [address] Anthony Bonilla Lymphocytes/100 WBC (Bld) 3.2 % Critically low 20.5-60.0 [facility] Comment on above: Performed By: #### U RCX #### [facility] [address] [address] [address] Anthony Bonilla MANUAL DIFF REQ NO Normal [facility] Comment on above: Performed By: #### U RCX #### [facility] [address] [address] [address] Anthony Bonilla MCH (RBC) [Entitic mass] 33.0 pg Normal 26.7-34.0 [facility] Comment on above: Performed By: #### U RCX #### [facility] [address] [address] [address] Anthony Bonilla MCHC (RBC) [Mass/Vol] 33.6 g/dL Normal 29.9-35.2 [facility] Comment on above: Performed By: #### U RCX #### [facility] [address] [address] [address] Anthony Bonilla MCV (RBC) [Entitic vol] 98.1 fL Normal 81.0-99.0 [facility] Comment on above: Performed By: #### U RCX #### [facility] [address] [address] [address] Anthony Bonilla MONO # 1.1 103/ul Critically high 0.3-0.8 [facility] Comment on above: Performed By: #### U RCX #### [facility] [address] [address] [address] Anthony Bonilla Monocytes/100 WBC (Bld) 4.8 % Normal 1.7-12.0 [facility] Comment on above: Performed By: #### U RCX #### [facility] [address] [place] [address] Dr. Anthony Bonilla NEUT # 20.3 103/ul Critically high 1.4-6.5 [facility] Comment on above: Performed By: #### U RCX #### [facility] [address] [place] [address] Dr. Anthony Bonilla Neutrophils/100 WBC (Bld) 91.3 % Critically high 43.0-75.0 [facility] Comment on above: Performed By: #### U RCX #### [facility] [address] [address] [address] Anthony Bonilla Platelet mean volume (Bld) [Entitic vol] 10.8 fL Normal 9.5-13.5 [facility] Comment on above: Performed By: #### U RCX #### [facility] [address] [address] [address] Anthony Bonilla PLT 179 103/ul Normal 150-450 [facility] Comment on above: Performed By: #### U RCX #### [facility] [address] [address] [address] Anthony Bonilla RBC 3.67 106/ul Critically low 4.20-5.40 [facility] [facility] Comment on above: Performed By: #### U RCX #### [facility] [address] [place] [address] Dr. Anthony Bonilla WBC 22.2 103/ul Critically high 4.0-11.0 [facility] Comment on above: Performed By: #### U RCX #### [facility] [address] [place] [address] Dr. Anthony Bonilla CULTURE BLOODon 11-01-2021 Microscopic examination of blood, culture Culture Observations: NO GROWTH AT 5 DAYS. Normal [facility] Comment on above: Performed By: #### B [id number] #### [facility] [address] [place] [address] Dr. Anthony Bonilla Performed By: #### C BC #### [facility] [address] [place] [address] Dr. Anthony Bonilla Covid-19 PCR ([facility])on 10-10 SARS-CoV-2 (COVID-19) RNA [place]+probe Ql (Unsp spec) Detected Critically abnormal NOT DETECTED [facility] Comment on above: Result Comment: This test is not yet approved or cleared by the [place] FDA. When there are no FDA-approved or cleared tests available, and other criteria are met, FDA can make tests available under an emergency access mechanism called an Emergency Use Authorization (EUA). The EUA for this test is supported by the Certified Ethical Hacker of Health and Human Service's declaration that [...] used). Performed By: #### C BC #### [facility] [address] [place] [address] Dr. Anthony Bonilla ER URINE PROFILEon 2 Bilirubin Ql (U) Negative Normal NEGATIVE [facility] Comment on above: Performed By: #### U RCX #### [facility] [address] [place] [address] Dr. Anthony Bonilla Clarity (U) CLEAR Normal CLEAR [facility] Comment on above: Performed By: #### U RCX #### [facility] [address] [address] [address] Anthony Bonilla Color (U) LT. YELLOW Normal YELLOW [facility] Comment on above: Performed By: #### U RCX #### [facility] [address] [address] [address] Anthony Bonilla ERUAHD A micrscopic examina tion will be performed if indicated. Normal [facility] Comment on above: Performed By: #### U RCX #### [facility] [address] [address] [address] Anthony Bonilla Glucose Ql (U) Negative Normal NEGATIVE [facility] Comment on above: Performed By: #### U RCX #### [facility] [address] [place] [address] Dr. Anthony Bonilla Hemoglobin Ql (U) TRACE-INTACT Abnormal NEGATIVE [facility] Comment on above: Performed By: #### U RCX #### [facility] [address] [address] [address] Anthony Bonilla Ketones Ql (U) Negative Normal NEGATIVE [facility] Comment on above: Performed By: #### U RCX #### [facility] [address] [address] [address] Anthony Bonilla LEUKOCYTES Negative Normal NEGATIVE [facility] Comment on above: Performed By: #### U RCX #### [facility] [address] [address] [address] Anthony Bonilla Nitrite Ql (U) Negative Normal NEGATIVE [facility] Comment on above: Performed By: #### U RCX #### [facility] [address] [address] [address] Anthony Bonilla pH (U) 6.0 [pH] Normal 5-9 [facility] Comment on above: Performed By: #### U RCX #### [facility] [address] [place] [address] Dr. Anthony Bonilla SPEC GRAVITY 1.020 Normal 1.005-<=1. 025 [facility] Comment on above: Performed By: #### U RCX #### [facility] [address] [place] [address] Dr. Anthony Bonilla UA PROTEIN Negative Normal NEGATIVE/ TRACE [facility] Comment on above: Performed By: #### U RCX #### [facility] [address] [place] [address] Dr. Anthony Bonilla UR MICRO IND INDICATED Normal [facility] Comment on above: Performed By: #### U RCX #### [facility] [address] [place] [address] Dr. Anthony Bonilla Urobilinogen Qn (U) 1.0 {Gen'U}/dL Normal 0.2 - 1. 0 [facility] Comment on above: Performed By: #### U RCX #### [facility] [address] [place] [address] Dr. Anthony Bonilla LACTATE/LACTIC ACIDon 2021 Lactate [Moles/Vol] 1.6 mmol/L Normal 0.4-1.9 [facility] Comment on above: Performed By: #### C BC #### [facility] [address] [place] [address] Dr. Anthony Bonilla PROF 14(COMP METB)on 022 Albumin [Mass/Vol] 3.2 g/dL Critically low 3.4-5.[address] [facility] Comment on above: Performed By: #### C BC #### [facility] [address] [place] [address] Dr. Anthony Bonilla Albumin/Globulin [Mass ratio] 0.9 {ratio} Normal [facility] Comment on above: Performed By: #### C BC #### [facility] [address] [place] [address] Dr. Anthony Bonilla ALP [Catalytic activity/Vol] 26 U/L Critically low 46-116 [facility] Comment on above: Performed By: #### C BC #### [facility] [address] [place] [address] Dr. Anthony Bonilla ALT [Catalytic activity/Vol] 32 U/L Normal 14-59 [facility] Comment on above: Performed By: #### C BC #### [facility] [address] [address] [address] Anthony Bonilla Anion gap [Moles/Vol] 11.5 mmol/L Normal [facility] Comment on above: Performed By: #### C BC #### [facility] [address] [address] [address] Anthony Bonilla AST [Catalytic activity/Vol] 16 U/L Normal 15-37 [facility] Comment on above: Performed By: #### C BC #### [facility] [address] [address] [address] Anthony Bonilla Bilirubin [Mass/Vol] 1.2 mg/dL Critically high 0.2-1.0 [facility] Comment on above: Performed By: #### C BC #### [facility] [address] [address] [address] Anthony Bonilla Calcium [Mass/Vol] 9.0 mg/dL Normal 8.5-10.1 [facility] Comment on above: Performed By: #### C BC #### [facility] [address] [address] [address] Anthony Bonilla Chloride [Moles/Vol] 102 mmol/L Normal 98-107 [facility] Comment on above: Performed By: #### C BC #### [facility] [address] [address] [address] Anthony Bonilla CO2 [Moles/Vol] 25.2 mmol/L Normal 21.0-32.0 [facility] Comment on above: Performed By: #### C BC #### [facility] [address] [address] [address] Anthony Bonilla Creatinine [Mass/Vol] 1.25 mg/dL Critically high 0.55-1.02 [facility] Comment on above: Performed By: #### C BC #### [facility] [address] [address] [address] Anthony Bonilla EGFR-AF [place] 49 mL/min/1.73m2 Critically low >=60 [facility] Comment on above: Performed By: #### C BC #### [facility] [address] [address] [address] Anthony Bonilla EGFR-NON AF [place] 41 mL/min/1.73m2 Critically low >=60 [facility] Comment on above: Performed By: #### C BC #### [facility] [address] [address] [address] Anthony Bonilla Globulin (S) [Mass/Vol] 3.4 g/dL Normal [facility] Comment on above: Performed By: #### C BC #### [facility] [address] [address] [address] Anthony Bonilla Glucose [Mass/Vol] 102 mg/dL Normal 74-106 [facility] Comment on above: Performed By: #### C BC #### [facility] [address] [address] [address] Anthony Bonilla Potassium [Moles/Vol] 4.7 mmol/L Normal 3.5-5.1 [facility] Comment on above: Performed By: #### C BC #### [facility] [address] [address] [address] Anthony Bonilla Protein [Mass/Vol] 6.6 g/dL Normal 6.4-8.2 [facility] Comment on above: Performed By: #### C BC #### [facility] [address] [address] [address] Anthony Bonilla Sodium [Moles/Vol] 134 mmol/L Critically low 136-[address] [facility] Comment on above: Performed By: #### C BC #### [facility] [address] [address] [address] Anthony Bonilla Urea nitrogen [Mass/Vol] 33.0 mg/dL Critically high 7.0-18.0 [facility] Comment on above: Performed By: #### C BC #### [facility] [address] [address] [address] Anthony Bonilla Urea nitrogen/Creatinine [Mass ratio] 26.4 mg/mg Normal [facility] Comment on above: Performed By: #### C BC #### [facility] [address] [place] [address] Dr. Anthony Bonilla PROTIMEon 11-01-2021 INR Coag (PPP) [Relative time] 0.97 {INR} Normal [facility] Comment on above: Performed By: #### U RCX #### [facility] [address] [place] [address] Dr. Anthony Bonilla INR GUIDELINES SEE BELOW Normal [facility] Comment on above: Result Comment: MEGAN RED INR: 2.0 - 3.0 CONDITIONS NOT LISTED BELOW 2.5 - 3.5 FOR PROSTHETIC HEART VALVE REPLACEMENT 2.5 - 3.5 RECURRENT THROMBOSIS Performed By: #### U RCX #### [facility] [address] [place] [address] Dr. Anthony Bonilla PT Coag (PPP) [Time] 10.5 s Normal 9.0-11.6 [facility] Comment on above: Performed By: #### U RCX #### [facility] [address] [place] [address] Dr. Anthony Bonilla PTTon 11-01-2021 aPTT Coag (Bld) [Time] 27.8 s Normal 22.3-36.2 [facility] Comment on above: Performed By: #### U RCX #### [facility] [address] [place] [address] Dr. Anthony Bonilla TSHon 11-01-2021 TSH 1.011 uIU/mL Normal 0.358-3.74 0 [facility] Comment on above: Performed By: #### C BC #### [facility] [address] [place] [address] Dr. Anthony Bonilla URINE MICROSCOPIC ONLYon BACTERIA LARGE Abnormal NONE SEEN [facility] Comment on above: Performed By: #### U RCX #### [facility] [address] [place] [address] Dr. Anthony Bonilla Bacteria identified Cx Nom (U) INDICATED Normal [facility] Comment on above: Performed By: #### U RCX #### [facility] [address] [place] [address] Dr. Anthony Bonilla CAST NONE SEEN Normal NONE SEEN [facility] Comment on above: Performed By: #### U RCX #### [facility] [address] [place] [address] Dr. Anthony Bonilla Crystals LM Nom (Urine sed) NONE SEEN Normal NONE SEEN [facility] Comment on above: Performed By: #### U RCX #### [facility] [address] [place] [address] Dr. Anthony Bonilla Epithelial cells LM Ql (Urine sed) FEW Abnormal NONE SEEN /RARE [facility] Comment on above: Performed By: #### U RCX #### [facility] [address] [place] [address] Dr. Anthony Bonilla MUCOUS NONE SEEN Normal NONE SEEN [facility] Comment on above: Performed By: #### U RCX #### [facility] [address] [place] [address] Dr. Anthony Bonilla RBC 2-5 Abnormal 0-2 [facility] Comment on above: Performed By: #### U RCX #### [facility] [address] [place] [address] Dr. Anthony Bonilla WBC 0-2 Abnormal NONE SEEN [facility] Comment on above: Performed By: #### U RCX #### [facility] [address] [place] [address] Dr. Anthony Bonilla Covid-19 PCR ([facility])on SARS-CoV-2 (COVID-19) RNA [place]+probe Ql (Unsp spec) Detected Critically abnormal NOT DETECTED [facility] Comment on above: Result Comment: This test is not yet approved or cleared by the [place] FDA. When there are no FDA-approved or cleared tests available, and other criteria are met, FDA can make tests available under an emergency access mechanism called an Emergency Use Authorization (EUA). The EUA for this test is supported by the [place] of Health and Human Service's declaration that [...] used). Performed By: #### C BC #### [facility] [address] [place], [place] [address] Dr. Anthony Bonilla Covid-19 PCR ([facility])on SARS-CoV-2 (COVID-19) RNA [place]+probe Ql (Unsp spec) Not detected Normal NOT DETECTED [facility] Comment on above: Result Comment: This test is not yet approved or cleared by the [place] FDA. When there are no FDA-approved or cleared tests available, and other criteria are met, FDA can make tests available under an emergency access mechanism called an Emergency Use Authorization (EUA). The EUA for this test is supported by the Certified Ethical Hacker of Health and Human Service's (HHS's) declaration [...] SARS-CoV-2. Performed By: #### U RCX #### [facility] [address] [place], [place] [address] Dr. 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 However, the narrative phrase printed from the coding software may appear abbreviated, or result in slightly different terminology. Revised Coded By: Ambar Manley Revised Date Saved: 10/19/2019 05:41 am [facility] Coding Queryon 10-02-2019 Coding Query HIM CODING QUERY FOR Accurate coding and billing requires that the principal diagnosis, secondary diagnosis and procedures be supported by physician documentation and that this documentation be reflected in the discharge summary (if required for patient type). Any time this information is not complete, it is the pizza delivery?s responsibility to query the physician. Based on [...] timely attention to this matter. Ambar Manley Manager Telemetry Ext [phone] [Electronically Signed on: 10/18/2019 21:40 EDT] Vinayak Mi [place] BOYD [Verified on: 10/18/2019 21:40 EDT] Mi Licea DO [Transcribed on: 10/02/2019 11:06 EDT] [facility] Consent Formson 09-29-2019 Consent Forms [id number][facility] Management[facility] 09-09 Medication Management [id number]#1.[facility] Outside Recordson 09-29-2019 Outside Records [id number]#1.00[facility] Outside Records [id number]#1.00[facility] Provider Orderson 09-29-2019 Provider Orders [id number]#1.00[facility] Telemetry Stripson 0 Telemetry Strips [id number]#1.00[facility] .Auto Diff 1on [address] [facility] % 11 % Normal 02-19 [facility] Comment on above: Performed By: #### 1 [id number], [id number], [id number] #### [facility] (DEFAULT) [address] [place] [address] Baso Abs# 0.0 x10 Normal 0.0-0.2 [facility] Comment on above: Performed By: #### 1 [id number], [id number], [id number] #### [facility] (DEFAULT) [address] [place] [address] Basophils/100 WBC (Bld) 0.1 % Low 0.2-2.0 [facility] Comment on above: Performed By: #### 1 [id number], [id number], [id number] #### [facility] (DEFAULT) [address] [place] [address] Eos Abs# 0.2 x10 Normal 0.0-0.4 [facility] Comment on above: Performed By: #### 1 [id number], [id number], [id number] #### [facility] (DEFAULT) [address] [place] [address] 088[address] Eosinophils/100 WBC (Bld) 2.2 % Normal 0.9-4.0 [facility] Comment on above: Performed By: #### 1 [id number], [id number], [id number] #### [facility] (DEFAULT) [address] [place] [address] Lymphocytes (Bld) [#/Vol] 0.6 x10 Low 1.3-2.9 [facility] Comment on above: Performed By: #### 1 [id number], [id number], [id number] #### [facility] (DEFAULT) [address] [place] [address] Lymphocytes/100 WBC (Bld) 6 % Low 14-48 [facility] Comment on above: Performed By: #### 1 [id number], [id number], [id number] #### [facility] (DEFAULT) [address] [place] [address] [address] [place] Abs# 1.0 x10 High 0.0-0.8 [facility] Comment on above: Performed By: #### 1 [id number], [id number], [id number] #### [facility] (DEFAULT) [address] [place] [address] Neut Abs# 7.2 x10 Normal 1.5-9.2 [facility] Comment on above: Performed By: #### 1 [id number], [id number], [id number] #### [facility] (DEFAULT) [address] [place] [address] Neutrophils/100 WBC (Bld) 80 % Normal 44-88 [facility] Comment on above: Performed By: #### 1 [id number], [id number], [id number] #### [facility] (DEFAULT) [address] [place] [address] CBC w/ Auto Diffon 0 Erythrocyte distribution width (RBC) [Ratio] 14.4 % Normal 11.5-15.0 [facility] Comment on above: Performed By: #### 1 [id number], [id number], [id number] #### [facility] (DEFAULT) [address] [place] [address] Hematocrit (Bld) [Volume fraction] 36.2 % Normal 33.7-40.4 [facility] Comment on above: Performed By: #### 1 [id number], [id number], [id number] #### [facility] (DEFAULT) [address] [place] [address] Hemoglobin (Bld) [Mass/Vol] 11.9 g/dL Normal 11.3-15.9 [facility] Comment on above: Performed By: #### 1 [id number], [id number], [id number] #### [facility] (DEFAULT) [address] [place] [address] Man Diff? Auto Normal [facility] Comment on above: Performed By: #### 1 [id number], [id number], [id number] #### [facility] (DEFAULT) [address] [place] [address] MCH (RBC) [Entitic mass] 33 pg Normal 24-34 [facility] Comment on above: Performed By: #### 1 [id number], [id number], [id number] #### [facility] (DEFAULT) [address] [place] [address] MCHC (RBC) [Mass/Vol] 33 g/dL Normal 26-37 [facility] Comment on above: Performed By: #### 1 [id number], [id number], [id number] #### [facility] (DEFAULT) [address] [place] [address] MCV (RBC) [Entitic vol] 100 fL Normal 81-100 [facility] Comment on above: Performed By: #### 1 [id number], [id number], [id number] #### [facility] (DEFAULT) [address] [place] [address] Platelet mean volume (Bld) [Entitic vol] 9.6 fL Normal 6.3-10.2 [facility] Comment on above: Performed By: #### 1 [id number], [id number], [id number] #### [facility] (DEFAULT) [address] [place] [address] Platelets (Bld) [#/Vol] 286 x10 Normal 138-427 [facility] Comment on above: Performed By: #### 1 [id number], [id number], [id number] #### [facility] (DEFAULT) [address] [place] [address] RBC (Bld) [#/Vol] 3.61 x10 Low 3.70-5.30 [facility] Comment on above: Performed By: #### 1 [id number], [id number], [id number] #### [facility] (DEFAULT) [address] [place] [address]57 WBC (Bld) [#/Vol] 9.0 x10 [facility] Comment on above: Performed By: #### 1 [id number], [id number], [id number] #### [facility] (DEFAULT) [address] [place] [address] Education Noteon 2019 Education Note Education Materials [...] done to rule of a DVT. Normal [facility] Extra Greenon 2019 Tube Collected Yes [facility] Comment on above: Performed By: #### 1 [id number], [id number], [id number] #### [facility] (DEFAULT) [address] [place] [address] Inpatient Patient Summaryon 2019 Inpatient Patient Summary [address] [address] Patient Discharge Instructions Name: DELICIA HSU : 1935 Patient Address: [address] [place], [place] [id number] Primary Care Provider: Name: Gypsy Mcmahon MD After you are discharged if you find you have any questions, please, call [phone] ext [phone] to speak to a nurse. Discharge Diagnosis: Primary localized osteoarthritis of left hip Prescription Information: If you have been given a prescription for narcotics, seek immediate medical attention if you have any difficulty breathing or any sudden status changes such as confusion and sleepiness. If you or anyone you know is experiencing suicidal thoughts, mental health, alcohol and/or drug addiction problems; contact the [facility] 31/08 Crisis Hotline -Text 4HNBI to 259510. If you received any narcotics, sedation, or [...] business decisions or sign any legal documents [facility] would like to thank you for allowing us to assist you with your healthcare needs. The following includes patient education materials and information regarding your injury/illness. HSU DELICIA Evangelista has been given the following list of follow-up instructions, prescriptions, and patient education materials: Follow-up Instructions With: Address: When: Mi Licea [address] [place] [id number] Business (2) 10/03/2019 8:30 AM With: Address: When: Gypsy Mcmahon [address] [place] [address] [address] [phone] Business (1) Medications During the course of your visit, your medication list was updated with the most current information. The details of those changes are reflected below: New Medications Other Medications cefuroxime (cefuroxime 250 mg oral tablet) 1 tab(s) Oral 2 times a day for 7 Days. [facility]. Medications That Were Updated - Follow Below [...] for Disease Control and Prevention October 2013 [facility] Progress Note - Nurseon 09-09 [facility] [[facility]] Pt. transferred to bed times one assist. [...] on: 2019 11:52 EDT] Pan Regalado RN [facility] Progress Note - Nurse Pt. reports intermittent left upper inner thigh grabbing pain. Pt. moans during these episodes. Tramadol given. Pt. repostioned for comfort. No change in the muscle spasms. Dr. Chacko informed in person. No orders received. [Electronically Signed on: 2019 09:32 EDT] Pan Regalado RN [Verified on: 2019 09:32 EDT] Pan Regalado RN [facility] Progress Note-Physicianon Progress Note-Physician DATE [...] PROGNOSIS: Good. Devorah Redd DO JOB #: [id number] bk [Electronically Signed on: 2019 13:04 EDT] DEVORAH REDD DO [Verified on: 2019 13:04 EDT] DEVORAH REDD DO [Transcribed on: 2019 11:05 EDT] [facility] Normal [facility] .Auto Diff 1on 09-27-[address] [facility] % 9 % Normal 12 [facility] Comment on above: Performed By: #### 1 [id number], [id number], [id number] #### [facility] (DEFAULT) [address] [place] [address] Baso Abs# 0.0 x10 Normal 0.0-0.2 [facility] Comment on above: Performed By: #### 1 [id number], [id number], [id number] #### [facility] (DEFAULT) [address] [place] [address] 43777 Basophils/100 WBC (Bld) 0.1 % Low 0.2-2.0 [facility] Comment on above: Performed By: #### 1 [id number], [id number], [id number] #### [facility] (DEFAULT) [address] [place] [address] 56833 Eos Abs# 0.2 x10 Normal 0.0-0.4 [facility] Comment on above: Performed By: #### 1 [id number], [id number], 7488976 #### [facility] (DEFAULT) [address] [place] [address] 63373 Eosinophils/100 WBC (Bld) 1.6 % Normal 0.9-4.0 [facility] Comment on above: Performed By: #### 1 [id number], [id number], 0873582 #### [facility] (DEFAULT) [address] [place] [address] 24015 Lymphocytes (Bld) [#/Vol] 0.5 x10 Low 1.3-2.9 [facility] Comment on above: Performed By: #### 1 [id number], 03665901, [id number] #### [facility] (DEFAULT) [address] [place] [address] 98794 Lymphocytes/100 WBC (Bld) 4 % Low 14-48 [facility] Comment on above: Performed By: #### 1 [id number], 40837770, [id number] #### [facility] (DEFAULT) [address] [place] [address] [address] [address] [facility] Abs# 1.2 x10 High 0.0-0.8 [facility] Comment on above: Performed By: #### 1 [id number], 57488354, 5465730 #### [facility] (DEFAULT) [address] [place] [address] 91319 Neut Abs# 11.5 x10 High 1.5-9.2 [facility] Comment on above: Performed By: #### 1 [id number], [id number], 7790037 #### [facility] (DEFAULT) [address] [place] [address] 75448 Neutrophils/100 WBC (Bld) 86 % Normal 44-88 [facility] Comment on above: Performed By: #### 1 [id number], [id number], 9278453 #### [facility] (DEFAULT) [address] [place] [address] 90823 C Urineon 09-27-2019 C Urine Urine Culture [...] <=4 Verified Tri/Sulf S <=2/38 Verified Normal [facility] Comment on above: Performed By: #### 7 [id number], [id number], [id number] #### [facility] (DEFAULT) [address] [place] [address] 63752 CBC w/ Auto Diffon 0 Erythrocyte distribution width (RBC) [Ratio] 14.5 % Normal 11.5-15.0 [facility] Comment on above: Performed By: #### 1 [id number], [id number], [id number] #### [facility] (DEFAULT) [address] [place] [address] 11496 Hematocrit (Bld) [Volume fraction] 39.2 % Normal 33.7-40.4 [facility] Comment on above: Performed By: #### 1 [id number], 99397470, 8970366 #### [facility] (DEFAULT) [address] [place] [address] Hemoglobin (Bld) [Mass/Vol] 12.8 g/dL Normal 11.3-15.9 [facility] Comment on above: Performed By: #### 1 [id number], [id number], 4452145 #### [facility] (DEFAULT) [address] [place] [address] Man Diff? Auto Normal [facility] Comment on above: Performed By: #### 1 [id number], 36745241, 4481655 #### [facility] (DEFAULT) [address] [place] [address] MCH (RBC) [Entitic mass] 33 pg Normal 24-34 [facility] Comment on above: Performed By: #### 1 [id number], 86535108, 5881748 #### [facility] (DEFAULT) [address] [place] [address] 73057 MCHC (RBC) [Mass/Vol] 33 g/dL Normal 26-37 [facility] Comment on above: Performed By: #### 1 [id number], 59573693, 4078826 #### [facility] (DEFAULT) [address] [place] [address] MCV (RBC) [Entitic vol] 101 fL High 81-100 [facility] Comment on above: Performed By: #### 1 [id number], 54184687, 8425972 #### [facility] (DEFAULT) [address] [place] [address] 78912 Platelet mean volume (Bld) [Entitic vol] 9.8 fL Normal 6.3-10.2 [facility] Comment on above: Performed By: #### 1 [id number], 70836977, 2624910 #### [facility] (DEFAULT) [address] [place] [address] Platelets (Bld) [#/Vol] 266 x10 Normal 138-427 [facility] Comment on above: Performed By: #### 1 [id number], 35914251, 2696170 #### [facility] (DEFAULT) [address] [place] [address] 26005 RBC (Bld) [#/Vol] 3.89 x10 Normal 3.70-5.30 [facility] Comment on above: Performed By: #### 1 [id number], 52353728, 9801647 #### [facility] (DEFAULT) [address] [place] [address] 21771 WBC (Bld) [#/Vol] 13.4 x10 [facility] Comment on above: Result Comment: Slid e Reviewed Performed By: #### 1 [id number], [id number], [id number] #### [facility] (DEFAULT) [address] [place] [address] 68782 Coding Summaryon 09-27-2019 Coding Summary CODING DATE: 020 FINAL [facility] STATUS: Home PAYOR: Medicare ADMIT DX: [...] Lawrence Date Saved: 09/27/2019 11:11 am Normal [facility] Extra Greenon 09-27-2019 Tube Collected Yes [facility] Comment on above: Performed By: #### 1 [id number], [id number], [id number] #### [facility] (DEFAULT) [address] [place] [address] 93975 Nutrition Noteon 09-27-2019 Nutrition Note Pt eating poorly, av g less than 30% of meals per intake records. Supplements also taken sporadically. Suspect pain and constipation may be playing a role. No new wts. Last BM 09/23. Possible discharge later today. Will continue to follow and monitor need to adjust supplements ie. offer to make into a milkshake, Normal [facility] Noteon 09-27-2019 Pharmacy Note I [...] [Verified on: 09/27/2019 14:01 EDT] Virgie Santos [facility] Progress Note - Nurseon 08- Progress Note - Nurse 1800 one dulcolax suppository administered, will continue to monitor. [Electronically Signed on: 09/27/2019 18:03 EDT] Luli Mclain RN [Verified on: 09/27/2019 18:03 EDT] Luli Mclain RN [facility] Progress Note - Nurse 1710 tramadol 50mg po administered for #10 left upper thigh pain , will continue to monitor. [Electronically Signed on: 09/27/2019 17:09 EDT] Luli Mclain RN [Verified on: 09/27/2019 17:09 EDT] Luli Mclain RN [facility] Progress Note-Physicianon Progress Note-Physician DATE [...] PROGNOSIS: Good. Devorah Redd DO JOB #: [id number] bk [Electronically Signed on: 2019 10:28 EDT] DEVORAH REDD DO [Verified on: 2019 10:28 EDT] DEVORAH REDD DO [Transcribed on: 09/27/2019 13:52 EDT] [facility] Normal [facility] .Auto Diff 1on 09-26-[address] [facility] % 9 % Normal 1-12 [facility] Comment on above: Performed By: #### 1 [id number], [id number], [id number] #### [facility] (DEFAULT) [address] [place] [address] Baso Abs# 0.0 x10 Normal 0.0-0.2 [facility] Comment on above: Performed By: #### 1 [id number], 36771769, 0092883 #### [facility] (DEFAULT) [address] [place] [address] Basophils/100 WBC (Bld) 0.1 % Low 0.2-2.0 [facility] Comment on above: Performed By: #### 1 [id number], 95914010, 4471024 #### [facility] (DEFAULT) [address] [place] [address] Eos Abs# 0.2 x10 Normal 0.0-0.4 [facility] Comment on above: Performed By: #### 1 [id number], 78149684, 2967228 #### [facility] (DEFAULT) [address] [place] [address] Eosinophils/100 WBC (Bld) 2.0 % Normal 0.9-4.0 [facility] Comment on above: Performed By: #### 1 [id number], 93667449, 8666137 #### [facility] (DEFAULT) [address] [place] [address] Lymphocytes (Bld) [#/Vol] 0.6 x10 Low 1.3-2.9 [facility] Comment on above: Performed By: #### 1 [id number], 41154393, 0350281 #### [facility] (DEFAULT) [address] [place] [address] Lymphocytes/100 WBC (Bld) 6 % Low 14-48 [facility] Comment on above: Performed By: #### 1 [id number], 86626841, 6553525 #### [facility] (DEFAULT) [address] [place] [address] [facility] [facility] Abs# 0.9 x10 High 0.0-0.8 [facility] Comment on above: Performed By: #### 1 [id number], 93877258, 6848802 #### [facility] (DEFAULT) [address] [place] [address] Neut Abs# 8.3 x10 Normal 1.5-9.2 [facility] Comment on above: Performed By: #### 1 [id number], 45918479, 6288324 #### [facility] (DEFAULT) [address] [place] [address] Neutrophils/100 WBC (Bld) 83 % Normal 44-88 [facility] Comment on above: Performed By: #### 1 [id number], 43744727, 7085194 #### [facility] (DEFAULT) [address] [place] [address] Standard 09-26-2019 eGFR Non AA 48 mL/min/1.73m2 [facility] Comment on above: Performed By: #### 1 [id number], 93001492, 5321660 #### [facility] (DEFAULT) [address] [place] [address] eGFR AA 58 mL/min/1.73m2 [facility] Comment on above: Result Comment: Microbiological Laboratory Technician kody Kidney disease could be indicated at eGFRs of less than 60 ml/min/1.73m2. Kidney Failure is indicated at less than 15 ml/min/1.73m2 Performed By: #### 1 [id number], 48077004, 6570509 #### [facility] (DEFAULT) [address] [place] [address] Anion gap [Moles/Vol] 10.0 mmol/L Normal 5.0-19.0 [facility] Comment on above: Performed By: #### 1 [id number], 15189661, 9349926 #### [facility] (DEFAULT) [address] [place] [address] 94460 Calcium [Mass/Vol] 8.8 mg/dL Low 8.9-10.3 [facility] Comment on above: Performed By: #### 1 [id number], 42586640, 3770857 #### [facility] (DEFAULT) [address] [place] [address] 48122 Chloride [Moles/Vol] 103 mmol/L Normal 101-111 [facility] Comment on above: Performed By: #### 1 [id number], 28095659, 5181010 #### [facility] (DEFAULT) [address] [place] [address] 10900 CO2 [Moles/Vol] 28 mmol/L Normal 21-32 [facility] Comment on above: Performed By: #### 1 [id number], 00444293, 4971303 #### [facility] (DEFAULT) [address] [place] [address] 43708 Creatinine [Mass/Vol] 1.09 mg/dL Normal 0.60-1.30 [facility] Comment on above: Performed By: #### 1 [id number], 55810086, 0552685 #### [facility] (DEFAULT) [address] [place] [address] 48573 Glucose [Mass/Vol] 94.0 mg/dL Normal 74.0-118.0 [facility] Comment on above: Performed By: #### 1 [id number], 23534640, 8871122 #### [facility] (DEFAULT) [address] [place] [address] 21447 Osmolality [Osmolality] 276 mOsm/L [facility] Comment on above: Performed By: #### 1 [id number], 42284720, 2302843 #### [facility] (DEFAULT) [address] [place] [address] 63681 Potassium [Moles/Vol] 4.4 mmol/L Normal 3.6-5.1 [facility] Comment on above: Performed By: #### 1 [id number], 60675897, 7774480 #### [facility] (DEFAULT) [address] [place] [address] Sodium [Moles/Vol] 137.0 mmol/L Normal 136.0-144 . 0 [facility] Comment on above: Performed By: #### 1 [id number], 07953057, 9406340 #### [facility] (DEFAULT) [address] [place] [address] 33850 Urea nitrogen [Mass/Vol] 19 mg/dL Normal 8-26 [facility] Comment on above: Performed By: #### 1 [id number], 44790607, 6260490 #### [facility] (DEFAULT) [address] [place] [address] Urea nitrogen/Creatinine [Mass ratio] 17.0 mg/mg High 4.6-16.2 [facility] Comment on above: Performed By: #### 1 [id number], 76496283, 2947847 #### [facility] (DEFAULT) [address] [place] [address] 45914 CBC w/ Auto Diffon 0 Erythrocyte distribution width (RBC) [Ratio] 14.4 % Normal 11.5-15.0 [facility] Comment on above: Performed By: #### 1 [id number], 53648019, 7013134 #### [facility] (DEFAULT) [address] [place] [address] 28717 Hematocrit (Bld) [Volume fraction] 35.5 % Normal 33.7-40.4 [facility] Comment on above: Performed By: #### 1 [id number], 03513561, 9011387 #### [facility] (DEFAULT) [address] [place] [address] 43631 Hemoglobin (Bld) [Mass/Vol] 11.6 g/dL Normal 11.3-15.9 [facility] Comment on above: Performed By: #### 1 [id number], 29895605, 3029871 #### [facility] (DEFAULT) [address] [place] [address] 81501 Man Diff? Auto Normal [facility] Comment on above: Performed By: #### 1 [id number], 83659433, 6449997 #### [facility] (DEFAULT) [address] [place] [address] 53316 MCH (RBC) [Entitic mass] 33 pg Normal 24-34 [facility] Comment on above: Performed By: #### 1 [id number], 93905502, 7739611 #### [facility] (DEFAULT) [address] [place] [address] 56461 MCHC (RBC) [Mass/Vol] 33 g/dL Normal 26-37 [facility] Comment on above: Performed By: #### 1 [id number], 66099975, 5405432 #### [facility] (DEFAULT) [address] [place] [address] 28594 MCV (RBC) [Entitic vol] 102 fL High 81-100 [facility] Comment on above: Performed By: #### 1 [id number], 25569719, 7271351 #### [facility] (DEFAULT) [address] [place] [address] 85948 Platelet mean volume (Bld) [Entitic vol] 9.8 fL Normal 6.3-10.2 [facility] Comment on above: Performed By: #### 1 [id number], 54176934, 7455195 #### [facility] (DEFAULT) [address] [place] [address] 61644 Platelets (Bld) [#/Vol] 236 x10 Normal 138-427 [facility] Comment on above: Performed By: #### 1 [id number], 10316118, 8638985 #### [facility] (DEFAULT) [address] [place] [address] 00645 RBC (Bld) [#/Vol] 3.49 x10 Low 3.70-5.30 [facility] Comment on above: Performed By: #### 1 [id number], 78319216, 6295488 #### [facility] (DEFAULT) [address] [place] [address] 22297 WBC (Bld) [#/Vol] 10.0 x10 [facility] Comment on above: Performed By: #### 1 [id number], 03392416, 9124409 #### [facility] (DEFAULT) [address] [place] [address] Consent Formson 09-26-2019 Consent Forms [id number] Normal [facility] Consultation/Specialist Note on 09-26-2019 Consultation/Specia list Note [...] SUDHEER PIKE [Verified on: 09/26/2019 07:35 EDT] APLSUDHEER HOLLOWAY [facility] Progress Note - Nurseon 09-08 [...] on: 09/26/2019 07:45 EDT] Twila Cruz RN [facility] .Auto Diff 1on 09-25-[address] [facility] % 8 % Normal 02-19 [facility] Comment on above: Performed By: #### 1 [id number], [id number], 2996477 #### [facility] (DEFAULT) [address] [place] [address] Baso Abs# 0.0 x10 Normal 0.0-0.2 [facility] Comment on above: Performed By: #### 1 [id number], 35420361, 2846358 #### [facility] (DEFAULT) [address] [place] [address] 41442 Basophils/100 WBC (Bld) 0.2 % Normal 0.2-2.0 [facility] Comment on above: Performed By: #### 1 [id number], 92119254, 8016595 #### [facility] (DEFAULT) [address] [place] [address] 00624 Eos Abs# 0.1 x10 Normal 0.0-0.4 [facility] Comment on above: Performed By: #### 1 [id number], 47688618, 5881064 #### [facility] (DEFAULT) [address] [place] [address] 97916 Eosinophils/100 WBC (Bld) 0.5 % Low 0.9-4.0 [facility] Comment on above: Performed By: #### 1 [id number], 44355268, 8708515 #### [facility] (DEFAULT) [address] [place] [address] 27396 Lymphocytes (Bld) [#/Vol] 1.1 x10 Low 1.3-2.9 [facility] Comment on above: Performed By: #### 1 [id number], 69550011, 7102457 #### [facility] (DEFAULT) [address] [place] [address] 66343 Lymphocytes/100 WBC (Bld) 9 % Low 14-48 [facility] Comment on above: Performed By: #### 1 [id number], 47547263, 8825536 #### [facility] (DEFAULT) [address] [place] [address] [address] [facility] Abs# 1.0 x10 High 0.0-0.8 [facility] Comment on above: Performed By: #### 1 [id number], 79243493, 2243963 #### [facility] (DEFAULT) [address] [place] [address] 92200 Neut Abs# 9.6 x10 High 1.5-9.2 [facility] Comment on above: Performed By: #### 1 [id number], 22263693, 9996819 #### [facility] (DEFAULT) [address] [place] [address] Neutrophils/100 WBC (Bld) 82 % Normal 44-88 [facility] Comment on above: Performed By: #### 1 [id number], 14865797, 6503586 #### [facility] (DEFAULT) [address] [place] [address] ABORhon 09-25-2019 ABO and Rh group Nom (Bld) Hx Check: Not Found Anti-A: 4+ Anti-B: 0 Anti-D: 4+ DCon: NT A1: 0 B: 4+ ABORh Interp: A POS [facility] Comment on above: Performed By: #### 7 [id number], [id number], [id number] #### [facility] (DEFAULT) [address] [place] [address] ABORh Retypeon 09-25-2019 ABO and Rh group Nom (Bld) Ordered by Discern. Anti-A: 4+ Anti-B: 0 Anti-D: 4+ DCon: NT A1: 0 B: 4+ ABORh Retype: A POS [facility] Comment on above: Performed By: #### 7 [id number], 36489876, [id number] #### [facility] (DEFAULT) [address] [place] [address] 58148 ABSC Gelon 09-25-2019 ABSC Gel Negative Normal [facility] Comment on above: Performed By: #### 7 [id number], 13686762, [id number] #### [facility] (DEFAULT) [address] [place] [address] 40717 Anesthesia Noteon 09-25-2019 Anesthesia Note Patient: DONTAE [...] risk of pressure sore / SNOMED CT 782743138 / Confirmed CAD (coronary artery disease) / SNOMED CT 82899084 / Confirmed Hyperlipidemia / SNOMED CT 95326851 / Confirmed Hypertension / SNOMED CT 1177664833 / Confirmed Skin cancer / SNOMED CT 6042884171 / Confirmed Osteoporosis / SNOMED CT 108754386 / Confirmed Restless leg syndrome / SNOMED CT 11284161 / Confirmed Resolved: GERD (gastroesophageal reflux disease) / SNOMED CT 629437057 Histories Family History: Cancer Sister Brother Aneurysm Mother CHF - Congestive heart failure Father MA (myocardial infarction) Sister Procedure history: Umbilical hernia (3860356202). Arthroscopy (31131968). Comments: 08/29/2019 12:57 Dionne Mccarty RN arthroscopy of knee Cholecystectomy (12681550). Hysterectomy (082356514). Cataract (466151427). Shoulder (40575883). Comments: 08/29/2019 12:58 Dionne Mccarty RN arthroscopy CABG (Coronary artery bypass grafting) planned (089652306). Colonoscopy (800701585). EGD - Esophagogastroduodenoscopy (8297277251). Meniscectomy (361778700). Hip arthroplasty (054640018). Social History Electronic Cigarette/Vaping Assessment Electronic Cigarette [...] axis dev, LAFB, RV conduction delay. Plan [place] [employer]#(ASA) physical status classification: Class III. Anesthetic Preoperative Plan Anesthesia: Regional Spinal. Anesthetic plan, risks, benefits, and alternatives discussed with the patient and/or family. Patient verbalized understanding. Informed consent was given. Consent was signed by the patient. [Electronically Signed on: 09/25/2019 10:10 EDT] Enrike Mora MD [Verified on: 09/25/2019 10:10 EDT] Enrike Mora MD Normal [facility] Blood Bank IDon 09-25-2019 Blood Bank ID BBID: [id number] [facility] Comment on above: Performed By: #### 7 [id number], [id number], [id number] #### [facility] (DEFAULT) [address] [place] [address] CBC w/ Auto Diffon 0 Erythrocyte distribution width (RBC) [Ratio] 14.4 % Normal 11.5-15.0 [facility] Comment on above: Performed By: #### 1 [id number], [id number], [id number] #### [facility] (DEFAULT) [address] [place] [address] Hematocrit (Bld) [Volume fraction] 39.2 % Normal 33.7-40.4 [facility] Comment on above: Performed By: #### 1 [id number], [id number], [id number] #### [facility] (DEFAULT) [address] [place] [address] Hemoglobin (Bld) [Mass/Vol] 12.8 g/dL Normal 11.3-15.9 [facility] Comment on above: Performed By: #### 1 [id number], [id number], [id number] #### [facility] (DEFAULT) [address] [place] [address] Man Diff? Auto Normal [facility] Comment on above: Performed By: #### 1 [id number], [id number], [id number] #### [facility] (DEFAULT) [address] [place] [address] 41165 MCH (RBC) [Entitic mass] 33 pg Normal 24-34 [facility] Comment on above: Performed By: #### 1 [id number], [id number], [id number] #### [facility] (DEFAULT) [address] [place] [address] 32103 MCHC (RBC) [Mass/Vol] 33 g/dL Normal 26-37 [facility] Comment on above: Performed By: #### 1 [id number], [id number], [id number] #### [facility] (DEFAULT) [address] [place] [address] 28033 MCV (RBC) [Entitic vol] 102 fL High 81-100 [facility] Comment on above: Performed By: #### 1 [id number], [id number], [id number] #### [facility] (DEFAULT) [address] [place] [address] 92156 Platelet mean volume (Bld) [Entitic vol] 9.4 fL Normal 6.3-10.2 [facility] Comment on above: Performed By: #### 1 [id number], [id number], [id number] #### [facility] (DEFAULT) [address] [place] [address] 40780 Platelets (Bld) [#/Vol] 272 x10 Normal 138-427 [facility] Comment on above: Performed By: #### 1 [id number], [id number], [id number] #### [facility] (DEFAULT) [address] [place] [address] 76669 RBC (Bld) [#/Vol] 3.85 x10 Normal 3.70-5.30 [facility] Comment on above: Performed By: #### 1 [id number], [id number], [id number] #### [facility] (DEFAULT) [address] [place] [address] 91162 WBC (Bld) [#/Vol] 11.7 x10 High 3.5-10.5 [facility] Comment on above: Performed By: #### 1 [id number], [id number], [id number] #### [facility] (DEFAULT) [address] [place] [address] [address] 09-25-2019 Tube Collected Yes [facility] Comment on above: Performed By: #### 7 [id number], [id number], [id number] #### [facility] (DEFAULT) [address] [place] [address] 25744 H&Hon 09-25-2019 Hematocrit (Bld) [Volume fraction] 39.9 % Normal 33.7-40.4 [facility] Comment on above: Performed By: #### 7 [id number], 63053716, [id number] #### [facility] (DEFAULT) [address] [place] [address] 33211 Hemoglobin (Bld) [Mass/Vol] 12.7 g/dL Normal 11.3-15.9 [facility] Comment on above: Performed By: #### 7 [id number], [id number], [id number] #### [facility] (DEFAULT) [address] [place] [address] 73328 History and Physicalon 09-24 History and Physical [id number] Normal [facility] MAGR Intraoperative Recordon 09-25-2019 MAGR Intraoperative Record MAGR Intra-Op Record Summary Primary Physician: Mi Licea DO Finalized Date/Time: 09/25/19 15:04:11 Pt. Name: DELICIA HSU/Sex: 1935 FEMALE Med Rec #: [id number] Physician: Mi Licea DO Financial #: [id number] Pt. Type: I Room/Bed: [facility]/ Admit/Disch: 09/25/19 06:52:00 - Institution: Case Times [...] Role Performed Surgeon - Primary Anesthesiologist of Tap Grinder Record Time In 09/25/19 09:37:00 09/25/19 09:37:00 09/25/19 09:37:00 Time Out 09/25/19 11:50:00 09/25/19 11:50:00 09/25/19 11:50:00 Procedure Arthroplasty Total Arthroplasty Total Arthroplasty Total Hip(Left) Hip(Left) Hip(Left) Last Modified By: Marj Sullivan RN, Stephanie RN Sauer, Stephanie RN 09/25/19 12:54:58 09/25/19 12:54:58 09/25/19 12:54:58 Entry 4 Entry 5 Entry 6 Case Attendee Montrell MCKEON, Shantal Moreira Leigh-Ann CST Role Performed Scrub Personnel Card Setter Card Setter Time In 09/25/19 09:37:00 09/25/19 09:37:00 09/25/19 [...] Primary Procedure Yes Primary Surgeon Mi Licea DO Surgeon Comment LEFT TOTAL HIP Start [...] 50MM 6.5 X 30MM 6.5 X 15MM Unloader DEPUY DEPUY DEPUY Catalog # Lot Number [id number] Expiration Date 05/08/24 03/10/29 01/07/29 Serial Number [id number] REF 1217-30-500 REF 1217-15-500 Device Identifier Human Readable EDDA Machine Readable EDDA MR Class Implant Usage Data Site Hip L Hip L Hip L Quantity 1 1 1 Reason for Explant Reason Not Retained Explant Disposition Plant Technical Specialist Sterility External Indicator Result Internal Indicator Results [...] 09/25/19 10:50:00 09/25/19 10:50:00 09/25/19 10:50:00 Date/Time Implanted/ExplantMi López James Huddleston, James By: Eduardo BOYD Eduardo Eduardo BOYD Size 6.5 X 15MM 50MM PS Unloader DEPUY DEPUY DEPUY Catalog # Lot Number [id number] Expiration Date 11/07/28 04/07/29 04/07/29 Serial Number REF 1217-15-500 REF [id number] REF 1246-03-000 Device Identifier Human Readable EDDA Machine Readable EDDA MR Class Implant Usage Data Site Hip L Hip L Hip L Quantity 1 1 1 Reason for Explant Reason Not Retained Explant Disposition Plant Technical Specialist Sterility External Indicator Result Internal Indicator Results [...] Date/Time Implanted/Explanted Mi Licea James By: Eduardo Eduardo BOYD Size 135 SHORT NECK COLLAR 12/14 TAPER SIZE 11 Unloader DEPUY DEPUY Catalog # Lot Number [id number] Expiration Date 02/08/24 02/08/24 Serial Number REF [id number] REF 1365-22-000 Device Identifier Human Readable EDDA Machine Readable EDDA MR Class Implant Usage Data Site Hip L Hip L Quantity 1 1 Reason for Explant Reason Not Retained Explant Disposition Plant Technical Specialist Sterility External Indicator Result Internal Indicator Results [...] Unfinalizing 09/25/19 15:04 MARSHA Modify Pick List [facility] Recordon 0 MAGR PACU Record MAGR PACU Record Sum [facility] Physician: Mi Licea DO Finalized Date/Time: 09/25/19 12:53:39 Pt. Name: DELICIA HSU /Sex: 1935 FEMALE Med Rec #: [id number] Physician: Mi Licea DO Financial #: [id number] Pt. Type: I Room/Bed: 221/1 Admit/Disch: 09/25/19 06:52:00 - Institution: PACU Case Times MAGR Entry 1 In PACU I 09/25/19 11:50:00 Discharge from PACU 09/25/19 12:40:00 I Last Modified By: Dionne Yun RN 09/25/19 12:53:35 Finalized By: Dionne Yun RN Document Signatures Signed By: Dionne Yun RN 09/25/19 12:53 [facility] Recordon 0 8-17-2020 MAGR Preoperative Record MAGR Pre-Op Record Summary Primary Physician: Mi Licea DO Finalized Date/Time: 09/25/19 11:58:52 Pt. Name: DELICIA HSUO.B./Sex: 1935 FEMALE Med Rec #: [id number] Physician: Mi Licea DO Financial #: [id number] Pt. Type: I Room/Bed: 221/1 Admit/Disch: 09/25/19 [...] Signed By: Dionne Yun RN 09/25/19 11:58 Normal [facility] Nutrition Noteon 09-25-2019 Nutrition Note Pt admitted for sche duled Lt total hip sx; placed on a Regular diet as tolerated w/ post op supplements BID along w/ usual vitamin/mineral supplementation. Nutritional supplements adjusted to what's available in house. Per maxillofacial pathology assessment, Pt reports wt loss of 2-13lb, [...] associates to offer prunes/prune alfred q am. Normal [facility] Operative Report - Surgeon/P hung 09-25-2019 Operative [...] on: 10/18/2019 21:39 EDT] Mi Licea DO [facility] Pharmacy Noteon 09-25-2019 Pharmacy Note [...] [Verified on: 09/25/2019 13:26 EDT] Virgie Santos [facility] Pharmacy Note I have personally [...] [Verified on: 09/25/2019 13:04 EDT] Marj Mccall [facility] Progress Note - Nurseon 08-1 TSH Qn Pt states that she i s having pain in her lt hip and neck #8 on the scale. Pt also complains of freezing . Temp 97.8. Pt given a warm blanket and medicated with Morphine 2mg IVP as ordered. [Electronically Signed on: 09/25/2019 19:48 EDT] Indy Vidal RN [Verified on: 09/25/2019 19:48 EDT] Indy Vidal RN [facility] Progress Note - Nurse Complaining [...] on: 09/25/2019 19:51 EDT] Twila Cruz RN [facility] UA Lbsty1ww 09-25-2019 RBC (U) [#/Vol] 0-2 [facility] Comment on above: Order Comment: Urina lysis Microscopic order added on by [employer] Expert Rules system. Performed By: #### 7 [id number], [id number], [id number] #### [facility] (DEFAULT) [address] [place] [address] 86905 UA Bacteria 4+ [facility] Comment on above: Order Comment: Urina lysis Microscopic order added on by [employer] Expert Rules system. Performed By: #### 7 [id number], [id number], [id number] #### [facility] (DEFAULT) [address] [place] [address] UA Squam Epi Rare [facility] Comment on above: Order Comment: Urina lysis Microscopic order added on by [employer] Expert Rules system. Performed By: #### 7 852059, [id number], [id number] #### [facility] (DEFAULT) [address] [place] [address] 69258 UA WBC 0-2 [facility] Comment on above: Order Comment: Urina lysis Microscopic order added on by [employer] Expert Rules system. Performed By: #### 7 [id number], [id number], [id number] #### [facility] (DEFAULT) [address] [place] [address] UA w Culture if Ind Standard on 09-25-2019 Breakpoint UA [facility] Comment on above: Order Comment: sim insert Performed By: #### 7 [id number], [id number], [id number] #### [facility] (DEFAULT) [address] [place] [address] 53099 Color (U) Yellow [facility] Comment on above: Order Comment: sim insert Performed By: #### 7 595209, [id number], [id number] #### [facility] (DEFAULT) [address] [place] [address] Culture? Indicated [facility] Comment on above: Order Comment: sim insert Performed By: #### 7 [id number], [id number], [id number] #### [facility] (DEFAULT) [address] [place] [address] 71995 Glucose (U) [Mass/Vol] Negative [facility] Comment on above: Order Comment: sim insert Performed By: #### 7 [id number], [id number], [id number] #### [facility] (DEFAULT) [address] [place] [address] 98069 Ketones Ql (U) Negative [facility] Comment on above: Order Comment: sim insert Performed By: #### 7 810747, [id number], [id number] #### [facility] (DEFAULT) [address] [place] [address] 73873 Micro? Indicated [facility] Comment on above: Order Comment: sim insert Performed By: #### 7 [id number], [id number], [id number] #### [facility] (DEFAULT) [address] [place] [address] 80241 UA Bilirubin Negative Normal [facility] Comment on above: Order Comment: sim insert Performed By: #### 7 054718, [id number], [id number] #### [facility] (DEFAULT) [address] [place] [address] 43461 UA Blood Negative Normal NEGATIVE [facility] Comment on above: Order Comment: sim insert Performed By: #### 7 296706, [id number], [id number] #### [facility] (DEFAULT) [address] [place] [address] 73734 UA Clarity CLEAR Normal CLEAR [facility] Comment on above: Order Comment: sim insert Performed By: #### 7 304474, [id number], [id number] #### [facility] (DEFAULT) [address] [place] [address] 29657 UA Leuk Est SMALL Abnormal NEGATIVE [facility] Comment on above: Order Comment: sim insert Performed By: #### 7 014321, [id number], [id number] #### [facility] (DEFAULT) [address] [place] [address] 10610 UA Nitrite Positive Abnormal NEGATIVE [facility] Comment on above: Order Comment: sim insert Performed By: #### 7 478227, [id number], [id number] #### [facility] (DEFAULT) [address] [place] [address] 92030 UA pH 7.0 Normal 5-8 [facility] Comment on above: Order Comment: sim insert Performed By: #### 7 919277, [id number], [id number] #### [facility] (DEFAULT) [address] [place] [address] 16779 UA Protein Negative Normal NEGATIVE [facility] Comment on above: Order Comment: sim insert Performed By: #### 7 406808, [id number], [id number] #### [facility] (DEFAULT) [address] [place] [address] 58607 UA Spec Grav 1.020 Normal 1.001-1.03 5 [facility] Comment on above: Order Comment: sim insert Performed By: #### 7 690401, [id number], [id number] #### [facility] (DEFAULT) [address] [place] [address] 22161 UA Urobilinogen 0.2 mg/dL Normal 0.2-1.0 [facility] Comment on above: Order Comment: sim insert Performed By: #### 7 819907, [id number], [id number] #### [facility] (DEFAULT) [address] [place] [address] 15285 Urine Source Clean Catch Normal [facility] Comment on above: Order Comment: sim insert Performed By: #### 7 762550, [id number], [id number] #### [facility] (DEFAULT) [address] [place] [address] 62155 XR Hip Complete Lefton 09-24 XR Hip [...] MD 09/25/19 3:55 pm Technologist: OCHOA NAZARIO [facility] Patient Handouton 09-24-2019 Patient Handout [facility] Progress Note - Nurseon 09-08 Progress Note - Nurse Spoke with pt regarding arrival time of 0700 and NPO status. Verbalized understanding. [Electronically Signed on: 09/22/2019 09:47 EDT] Kimberley Holden RN [Verified on: 09/22/2019 09:47 EDT] Kimberley Holden RN Normal [facility] SARS-CoV-2 (COVID-19) PCRon 09-22-2019 COVID-19 PCR Not Detected Normal Not Detected [facility] Comment on above: Performed By: #### 7 [id number], [id number], [id number] #### [facility] (DEFAULT) [address] [place] [address] Employed in healthcare? Unknown [facility] Comment on above: Performed By: #### 7 516032, [id number], [id number] #### [facility] (DEFAULT) [address] [place] [address] Group care resident? Unknown [facility] Comment on above: Performed By: #### 7 762684, [id number], [id number] #### [facility] (DEFAULT) [address] [place] [address] Hospitalized due to COVID-19? Unknown [facility] Comment on above: Performed By: #### 7 973630, [id number], [id number] #### [facility] (DEFAULT) [address] [place] [address] In ICU? Unknown [facility] Comment on above: Performed By: #### 7 136569, [id number], [id number] #### [facility] (DEFAULT) [address] [place] [address] 27652 status? Unknown [facility] Comment on above: Performed By: #### 7 461609, [id number], [id number] #### [facility] (DEFAULT) [address] [place] [address] Symptomatic as defined by CDC? Unknown [facility] Comment on above: Performed By: #### 7 853713, [id number], [id number] #### [facility] (DEFAULT) [address] [place] [address] Coding Summaryon 09-13-2019 Coding Summary CODING DATE: [facility] STATUS: Home PAYOR: Medicare APC DESCRIPTION 5733 Level 3 Minor Procedures ADMIT DX: REASON FOR VISIT DX: Z01.818 Encounter for other preprocedural examination I10 Essential (primary) hypertension I25.10 Atherosclerotic heart disease of [place] coronary artery without angina pectoris FINAL DX: PRINCIPAL: Z01.818 Encounter for other preprocedural examination SECONDARY: I10 Essential (primary) hypertension I25.10 Atherosclerotic heart disease of [place] coronary artery without angina pectoris K21.9 Gastro-esophageal [...] Marisela Lawrence Date Saved: 09/13/2019 09:18 am [facility] Coding Summaryon 09-06-2019 Coding Summary CODING DATE: [facility] STATUS: Home PAYOR: Medicare APC DESCRIPTION 5733 Level 3 Minor Procedures ADMIT DX: REASON FOR VISIT DX: Z01.818 Encounter for other preprocedural examination I10 Essential (primary) hypertension I25.10 Atherosclerotic heart disease of [place] coronary artery without angina pectoris FINAL DX: PRINCIPAL: Z01.818 Encounter for other preprocedural examination SECONDARY: I10 Essential (primary) hypertension I25.10 Atherosclerotic heart disease of [place] coronary artery without angina pectoris K21.9 Gastro-esophageal reflux disease without esophagitis PYMT PROC APC STAT DESCRIPTION DOCTOR NAME DATE NOTE: The code number assigned matches the documented diagnosis and / or procedure in the patient's chart. However, the narrative phrase printed from the coding software may appear abbreviated, or result in slightly different terminology. Coded By: Marisela Lawrence Date Saved: 09/06/2019 09:20 am [facility] Progress Note - Nurseon 08-09 Progress Note - Nurse chart reviewed per Dr Akbar anesthesiologist, and cleared for surgery on 09/25/2019 [Electronically Signed on: 09/04/2019 14:30 EDT] Nimco Albarado RN [Verified on: 09/04/2019 14:30 EDT] Nimco Albarado RN [facility] Progress Note - Nurse Xin at Dr PerrinVinayak notified that pt has positive urine culture. [Electronically Signed on: 09/04/2019 13:37 EDT] Dionne Yun RN [Verified on: 09/04/2019 13:37 EDT] Dionne Yun RN [facility] Provider Orderson 09-04-2019 Provider Orders [id number] [facility] C Urineon 09-03-2019 C Urine [...] <=4 Verified Tri/Sulf S <=2/38 Verified Normal [facility] Comment on above: Performed By: #### 1 [id number], [id number], [id number] #### [facility] (DEFAULT) [address] [place] [address] C MRSA Screenon 09-02-2019 C MRSA Screen Negative Normal [facility] Comment on above: Performed By: #### 1 [id number] #### [facility] (DEFAULT) [address] [place] [address] .Auto Diff 1on 09-01-[address] % 10 % Normal -12 [facility] Comment on above: Performed By: #### 7 104860, [id number], [id number] #### [facility] (DEFAULT) [address] [place] [address] Baso Abs# 0.0 x10 Normal 0.0-0.2 [facility] Comment on above: Performed By: #### 7 176657, [id number], [id number] #### [facility] (DEFAULT) [address] [place] [address] Basophils/100 WBC (Bld) 0.3 % Normal 0.2-2.0 [facility] Comment on above: Performed By: #### 7 715836, 90510682, [id number] #### [facility] (DEFAULT) [address] [place] [address] Eos Abs# 0.1 x10 Normal 0.0-0.4 [facility] Comment on above: Performed By: #### 7 783831, 15494935, [id number] #### [facility] (DEFAULT) [address] [place] [address] Eosinophils/100 WBC (Bld) 0.9 % Normal 0.9-4.0 [facility] Comment on above: Performed By: #### 7 017363, 16155845, [id number] #### [facility] (DEFAULT) [address] [place] [address] 51587 Lymphocytes (Bld) [#/Vol] 1.0 x10 Low 1.3-2.9 [facility] Comment on above: Performed By: #### 7 829606, 94814167, [id number] #### [facility] (DEFAULT) [address] [place] [address] 88324 Lymphocytes/100 WBC (Bld) 10 % Low 14-48 [facility] Comment on above: Performed By: #### 7 294404, 87938778, [id number] #### [facility] (DEFAULT) [address] [place] [address] [place] Abs# 1.0 x10 High 0.0-0.8 [facility] Comment on above: Performed By: #### 7 536061, [id number], [id number] #### [facility] (DEFAULT) [address] [place] [address] Neut Abs# 8.0 x10 Normal 1.5-9.2 [facility] Comment on above: Performed By: #### 7 549739, 87558120, [id number] #### [facility] (DEFAULT) [address] [place] [address] Neutrophils/100 WBC (Bld) 79 % Normal 44-88 [facility] Comment on above: Performed By: #### 7 438157, 54806545, [id number] #### [facility] (DEFAULT) [address] [place] [address] Standardon 09-01-2019 eGFR Non AA 44 mL/min/1.73m2 [facility] Comment on above: Performed By: #### 7 855288, 55797997, [id number] #### [facility] (DEFAULT) [address] [place] [address] eGFR AA 54 mL/min/1.73m2 [facility] Comment on above: Result Comment: Microbiological Laboratory Technician kody Kidney disease could be indicated at eGFRs of less than 60 ml/min/1.73m2. Kidney Failure is indicated at less than 15 ml/min/1.73m2 Performed By: #### 7 186798, [id number], [id number] #### [facility] (DEFAULT) [address] [place] [address] 13130 Anion gap [Moles/Vol] 15.0 mmol/L Normal 5.0-19.0 [facility] [facility] Comment on above: Performed By: #### 7 [id number], [id number], [id number] #### [facility] (DEFAULT) [address] [place] [address] 03250 Calcium [Mass/Vol] 9.2 mg/dL Normal 8.9-10.3 [facility] Comment on above: Performed By: #### 7 [id number], [id number], [id number] #### [facility] (DEFAULT) [address] [place] [address] 04920 Chloride [Moles/Vol] 101 mmol/L Normal 101-111 [facility] Comment on above: Performed By: #### 7 [id number], [id number], [id number] #### [facility] (DEFAULT) [address] [place] [address] 80904 CO2 [Moles/Vol] 25 mmol/L Normal 21-32 [facility] Comment on above: Performed By: #### 7 [id number], [id number], [id number] #### [facility] (DEFAULT) [address] [place] [address] 44749 Creatinine [Mass/Vol] 1.17 mg/dL Normal 0.60-1.30 [facility] Comment on above: Performed By: #### 7 [id number], [id number], [id number] #### [facility] (DEFAULT) [address] [place] [address] 43288 Glucose [Mass/Vol] 94.0 mg/dL Normal 74.0-118.0 [facility] Comment on above: Performed By: #### 7 [id number], [id number], [id number] #### [facility] (DEFAULT) [address] [place] [address] 05131 Osmolality [Osmolality] 276 mOsm/L [facility] Comment on above: Performed By: #### 7 [id number], [id number], [id number] #### [facility] (DEFAULT) [address] [place] [address] 40028 Potassium [Moles/Vol] 4.0 mmol/L Normal 3.6-5.1 [facility] Comment on above: Performed By: #### 7 [id number], [id number], [id number] #### [facility] (DEFAULT) [address] [place] [address] 04578 Sodium [Moles/Vol] 137.0 mmol/L Normal 136.0-144 . 0 [facility] Comment on above: Performed By: #### 7 [id number], [id number], [id number] #### [facility] (DEFAULT) [address] [place] [address] Urea nitrogen [Mass/Vol] 20 mg/dL Normal 8-26 [facility] Comment on above: Performed By: #### 7 [id number], [id number], [id number] #### [facility] (DEFAULT) [address] [place] [address] Urea nitrogen/Creatinine [Mass ratio] 17.0 mg/mg High 4.6-16.2 [facility] Comment on above: Performed By: #### 7 [id number], [id number], [id number] #### [facility] (DEFAULT) [address] [place] [address] 88596 CBC w/ Auto Diffon 0 Erythrocyte distribution width (RBC) [Ratio] 13.9 % Normal 11.5-15.0 [facility] Comment on above: Performed By: #### 7 [id number], [id number], [id number] #### [facility] (DEFAULT) [address] [place] [address] 49330 Hematocrit (Bld) [Volume fraction] 38.5 % Normal 33.7-40.4 [facility] Comment on above: Performed By: #### 7 [id number], [id number], [id number] #### [facility] (DEFAULT) [address] [place] [address] 70961 Hemoglobin (Bld) [Mass/Vol] 12.6 g/dL Normal 11.3-15.9 [facility] Comment on above: Performed By: #### 7 [id number], [id number], [id number] #### [facility] (DEFAULT) [address] [place] [address] 32848 Man Diff? Auto Normal [facility] Comment on above: Performed By: #### 7 [id number], [id number], [id number] #### [facility] (DEFAULT) [address] [place] [address] 58302 MCH (RBC) [Entitic mass] 33 pg Normal 24-34 [facility] Comment on above: Performed By: #### 7 129309, [id number], [id number] #### [facility] (DEFAULT) [address] [place] [address] 05685 MCHC (RBC) [Mass/Vol] 33 g/dL Normal 26-37 [facility] Comment on above: Performed By: #### 7 [id number], [id number], [id number] #### [facility] (DEFAULT) [address] [place] [address] 90119 MCV (RBC) [Entitic vol] 101 fL High 81-100 [facility] Comment on above: Performed By: #### 7 [id number], [id number], [id number] #### [facility] (DEFAULT) [address] [place] [address] 61609 Platelet mean volume (Bld) [Entitic vol] 9.5 fL Normal 6.3-10.2 [facility] Comment on above: Performed By: #### 7 [id number], [id number], [id number] #### [facility] (DEFAULT) [address] [place] [address] 69558 Platelets (Bld) [#/Vol] 292 x10 Normal 138-427 [facility] Comment on above: Performed By: #### 7 [id number], [id number], [id number] #### [facility] (DEFAULT) [address] [place] [address] 03521 RBC (Bld) [#/Vol] 3.82 x10 Normal 3.70-5.30 [facility] Comment on above: Performed By: #### 7 [id number], [id number], [id number] #### [facility] (DEFAULT) [address] [place] [address] WBC (Bld) [#/Vol] 10.1 x10 Normal 3.5-10.5 [facility] Comment on above: Performed By: #### 7 763827, [id number], [id number] #### [facility] (DEFAULT) [address] [place] [address] UA Pojdo2pw 09-01-2019 RBC (U) [#/Vol] None Seen [facility] Comment on above: Order Comment: Urina lysis Microscopic order added on by [employer] system. Performed By: #### 1 [id number], [id number], [id number] #### [facility] (DEFAULT) [address] [place] [address] UA Amorph. 1+ [facility] Comment on above: Order Comment: Urina lysis Microscopic order added on by [employer] system. Performed By: #### 1 [id number], [id number], [id number] #### [facility] (DEFAULT) [address] [place] [address] UA Bacteria 4+ [facility] Comment on above: Order Comment: Urina lysis Microscopic order added on by [employer] system. Performed By: #### 1 [id number], [id number], [id number] #### [facility] (DEFAULT) [address] [place] [address] UA Squam Epi Moderate Normal [facility] Comment on above: Order Comment: Urina lysis Microscopic order added on by [employer] system. Performed By: #### 1 [id number], [id number], [id number] #### [facility] (DEFAULT) [address] [place] [address] UA WBC 15-20 [facility] Comment on above: Order Comment: Urina lysis Microscopic order added on by [employer] system. Performed By: #### 1 [id number], [id number], [id number] #### [facility] (DEFAULT) [address] [place] [address] UA w Culture if Ind Standard on 09-01-2019 Breakpoint UA [facility] Comment on above: Performed By: #### 1 [id number], [id number], [id number] #### [facility] (DEFAULT) [address] [place] [address] Color (U) Yellow Normal [facility] Comment on above: Performed By: #### 1 [id number], [id number], [id number] #### [facility] (DEFAULT) [address] [place] [address] Culture? Yes Normal [facility] Comment on above: Performed By: #### 1 [id number], [id number], [id number] #### [facility] (DEFAULT) [address] [place] [address] Glucose (U) [Mass/Vol] Negative [facility] Comment on above: Performed By: #### 1 [id number], [id number], [id number] #### [facility] (DEFAULT) [address] [place] [address] Ketones Ql (U) Negative [facility] Comment on above: Performed By: #### 1 [id number], [id number], [id number] #### [facility] (DEFAULT) [address] [place] [address] 43391 Micro? Indicated [facility] Comment on above: Performed By: #### 1 [id number], [id number], [id number] #### [facility] (DEFAULT) [address] [place] [address] 78644 UA Bilirubin Negative Normal [facility] Comment on above: Performed By: #### 1 [id number], [id number], [id number] #### [facility] (DEFAULT) [address] [place] [address] 50382 UA Blood TRACE Abnormal NEGATIVE [facility] Comment on above: Performed By: #### 1 [id number], [id number], [id number] #### [facility] (DEFAULT) [address] [place] [address] 48378 UA Clarity CLEAR Normal CLEAR [facility] Comment on above: Performed By: #### 1 [id number], [id number], [id number] #### [facility] (DEFAULT) [address] [place] [address] 57341 UA Leuk Est MODERATE Abnormal NEGATIVE [facility] Comment on above: Performed By: #### 1 [id number], [id number], [id number] #### [facility] (DEFAULT) [address] [place] [address] 45361 UA Nitrite Positive Abnormal NEGATIVE [facility] Comment on above: Performed By: #### 1 [id number], [id number], [id number] #### [facility] (DEFAULT) [address] [place] [address] 17217 UA pH 5.5 Normal 5-8 [facility] Comment on above: Performed By: #### 1 [id number], [id number], [id number] #### [facility] (DEFAULT) [address] [place] [address] 32267 UA Protein Negative Normal NEGATIVE [facility] Comment on above: Performed By: #### 1 [id number], [id number], [id number] #### [facility] (DEFAULT) [address] [place] [address] 53984 UA Spec Grav 1.025 Normal 1.001-1.[address] [place] [address] Comment on above: Performed By: #### 1 [id number], [id number], [id number] #### [facility] (DEFAULT) [address] [place] [address] 37089 UA Urobilinogen 0.2 mg/dL Normal 0.2-1.0 [facility] Comment on above: Performed By: #### 1 [id number], [id number], [id number] #### [facility] (DEFAULT) [address] [place] [address] 07784 Urine Source Clean Catch Normal [facility] Comment on above: Performed By: #### 1 [id number], [id number], [id number] #### [facility] (DEFAULT) [address] [place] [address] 91622 JOINT PAIN INJECTIONon 09-06 JOINT PAIN INJECTION [facility] Department of Radiology [address] [place] [id number] Patient Name: DELICIA HSU : 1935 Sex: F Age: Race: White Pt. Location: 84 Patient Status: D Ordered Date: 08/08/2018 3:50:00 PM Completed Date: 09/06/2018 03:43 PM Requesting Provider: HERMELINDO HILLMAN Attending Provider: HERMELINDO HILLMAN Report Copy To: GYPSY MCMAHON Signs & Symptoms: M16.12 Unilateral primary osteoarthritis, left hip I10 History: [place] Comments: , Dr. Ochoa , Body Part: [...] guidance. Electronically signed by:Christy Ochoa. Transcribed by: [email or web address], User Resident: Electronically Signed by: CHRISTY OCHOA @ 09/09/2018 05:57 PM Normal [facility] Comment on above: Order Comment: , Dr. Ochoa , Body Part: Hip , Side: LEFT , Dr. Ochoa , Body Part: Hip , Side: LEFT , , , Ordering Provider - HERMELINDO HILLMAN MD , CT 3D LOWER EXTREMITY WO CON TRAST LEFTon 08-02-2018 CT 3D LOWER EXTREMITY WO CONTRAST LEFT [facility] Department of Radiology [address] [place] [id number] Patient Name: DELICIA HSU : 1935 Sex: F Age: Race: White Pt. Location: Patient Status: D Ordered Date: 07/22/2018 9:55:00 AM Completed Date: 08/02/2018 09:41 AM Requesting Provider: MIRTHA VELÁSQUEZ Attending Provider: MIRTHA VELÁSQUEZ Report Copy To: GYPSY MCMAHON Signs & Symptoms: S72.045D Nondisp fx of base of nk of l femr, 7thD I10 History: [place], PHONE:[phone] OR [phone],*NEEDS ORTHO F/U APPT. MEDICARE NO PC REQ [...] arthritis. Electronically signed by:Coy Jerome. Transcribed by: [email or web address], User Resident: Electronically Signed by: COY JEROME @ 08/08/2018 02:20 PM Normal [facility] Comment on above: Order Comment: , Jessie perkins left hip healing HIP LEFT 1 OR 2 VWS WITH PEL VISon 03-18-2018 HIP LEFT 1 OR 2 VWS WITH PELVIS [facility] Department of Radiology [address] [place] [phone] Patient Name: DELICIA HSU : 1935 Sex: F Age: Race: White Pt. Location: Patient Status: Ordered Date: 03/18/2018 1:20:00 PM Completed Date: 03/18/2018 01:54 PM Requesting Provider: MIRTHA VELÁSQUEZ Attending Provider: Report Copy To: Signs & Symptoms: S72.045D Nondisp fx of base of nk of l femr, 7thD I10 History: [place] Comments: , , , Ordering Provider - [...] THE RADIOLOGIST: , , , Ordering Rebeka - MIRTHA VELÁSQUEZ PA-C , PROTOCOL: AP(PA) and Lateral views were obtained. COMPARISON: January 10, 2018 FINDINGS: Soft tissues: No change Bones: No change Joints: No change IMPRESSION: Left femoral neck fracture with screw fixation superimposed upon senescent and degenerative skeleton similar to prior study Electronically signed by:Coy Jerome. Transcribed by: [email or web address], User Resident: Electronically Signed by: COY JEROME @ 03/18/2018 02:19 PM Normal [facility] Comment on above: Order Comment: , , = ========= , Ordering Provider - MIRTHA VELÁSQUEZ PA-C , HIP LEFT 1 OR 2 VWS WITH PEL VISon 01-10-2018 HIP LEFT 1 OR 2 VWS WITH PELVIS [facility] Department of Radiology [address] [place] [id number] Patient Name: DELICIA HSU : 1935 Sex: F Age: Race: White Pt. Location: Patient Status: Ordered Date: 01/10/2018 1:10:00 PM [...] arthritis. Electronically signed by:Manjit Whatley. Transcribed by: [email or web address], User Resident: Electronically Signed by: MANJIT WHATLEY @ 01/10/2018 04:38 PM Normal [facility] Comment on above: Order Comment: , Carmella ws (X-RAY, HIP): Radiologic Protocol , Views (X-RAY, HIP): Radiologic Protocol , , , Ordering Rebeka MORENO-C , HIP LEFT 1 OR 2 VWS WITH PEL VISon 11-01-2017 HIP LEFT 1 OR 2 VWS WITH PELVIS [facility] Department of Radiology [address] [place] [address] Patient Name: DELICIA HSU : 1935 Sex: F Age: Race: White Pt. Location: Patient Status: Ordered Date: 11/01/2017 3:00:00 PM Completed Date: 11/01/2017 03:00 PM Requesting Provider: MIRTHA VELÁSQUEZ Attending Provider: Report Copy To: Signs & Symptoms: S72.045D Nondisp fx of base of nk of l femr, 7thD I10 History: [place] Comments: , Views (X-RAY, HIP): Radiologic Protocol [...] study. Electronically signed by:Gerson Rodriguez. Transcribed by: [email or web address], User Resident: Electronically Signed by: GERSON RODRIGUEZ @ 11/01/2017 03:25 PM Normal [facility] Comment on above: Order Comment: , Carmella ws (X-RAY, HIP): Radiologic Protocol , Views (X-RAY, HIP): Radiologic Protocol , , , Ordering Provider - MIRTHA VELÁSQUEZ PA-C , HIP LEFT 1 OR 2 VWS WITH PEL VISon 09-21-2017 HIP LEFT 1 OR 2 VWS WITH PELVIS [facility] Department of Radiology [address] [place] [phone] Patient Name: DELICIA HSU : 1935 Sex: F Age: Race: White Pt. Location: Patient Status: Ordered Date: 09/21/2017 2:00:00 PM Completed Date: 09/21/2017 01:58 PM Requesting Provider: MIRTHA VELÁSQUEZ Attending Provider: Report Copy To: Signs & Symptoms: S72.045D Nondisp fx of base of nk of l femr, 7thD I10 History: [place] Comments: , , , Ordering Provider - [...] fracture Electronically signed by:Coy Jerome. Transcribed by: [email or web address], User Resident: Electronically Signed by: COY JEROME @ 09/21/2017 03:27 PM Normal [facility] Comment on above: Order Comment: , , = ========= , Ordering Provider - MIRTHA VELÁSQUEZ PA-C , Vital Signs Date Time Vital Sign Value Performing Clinician Facility 05-05-2023 16:40-0400 Diastolic blood pressure 71 mm[Hg] MD Jacinto Max Work Phone: [facility] 05-05-2023 16:40-0400 Systolic blood pressure 170 mm[Hg] MD Jacinto Max Work Phone: [facility] 05-05-2023 16:36-0400 Body height 177.8 cm MD Jacinto Max Work Phone: [facility] 05-05-2023 16:36-0400 Body temperature 98.1 [degF] MD Jacinto Max Work Phone: [facility] 05-05-2023 16:36-0400 Body weight 59.87 kg MD Jacinto Max Work Phone: [facility] 05-05-2023 16:36-0400 Heart rate 71 /min MD Jacinto Max Work Phone: [facility] 05-05-2023 16:36-0400 Respiratory rate 18 /min MD Jacinto Max Work Phone: [facility] 05-05-2023 16:36-0400 SaO2% (BldA) [Mass fraction] 98 % MD Jacinto Max Work Phone: [facility] 04-15-2023 13:30-0500 Body height 167.64 cm MD Jacinto Max Work Phone: [facility] 04-15-2023 13:30-0500 Body mass index (BMI) [Ratio] 20.8 kg/m2 MD Jacinto Max Work Phone: [facility] 04-15-2023 13:30-0500 Body temperature 97.2 [degF] MD Jacinto Max Work Phone: [facility] 04-15-2023 13:30-0500 Body weight 58.57 kg MD Jacinto Max Work Phone: [facility] 04-15-2023 13:30-0500 Diastolic blood pressure 75 mm[Hg] MD Jacinto Max Work Phone: [facility] 04-15-2023 13:30-0500 Heart rate 60 /min MD Jacinto Max Work Phone: [facility] 04-15-2023 13:30-0500 Systolic blood pressure 165 mm[Hg] MD Jacinto Max Work Phone: [facility] 02-26-2023 10:00-0500 Body height 167.64 cm MD Jacinto Max Work Phone: [facility] 02-26-2023 10:00-0500 Diastolic blood pressure 76 mm[Hg] MD Jacinto Max Work Phone: [facility] 02-26-2023 10:00-0500 Systolic blood pressure 156 mm[Hg] MD Jacinto Max Work Phone: [facility] 02-25-2023 10:15-0500 Body height 175.26 cm MD Jacinto Max Work Phone: [facility] 02-25-2023 10:15-0500 Body weight 59.1 kg MD Jacinto Max Work Phone: [facility] 02-25-2023 10:02-0500 Diastolic blood pressure 74 mm[Hg] MD Jacinto Max Work Phone: [facility] 02-25-2023 10:02-0500 Heart rate 67 /min MD Jacitno Max Work Phone: [facility] 02-25-2023 10:02-0500 Systolic blood pressure 157 mm[Hg] MD Jacinto Max Work Phone: [facility] 02-18-2023 14:00-0500 Body height 167.64 cm Jacinto Max Other [facility] 02-18-2023 14:00-0500 Body mass index (BMI) [Ratio] 20.66 kg/m2 Jacinto Max Other [facility] [employer] Other 02-18-2023 14:00-0500 Body temperature 97.2 [degF] Jacinto Max Other [facility] [employer] Other 02-18-2023 14:00-0500 Body weight 58.06 kg Jacinto Max Other [facility] [employer] Other 02-18-2023 14:00-0500 Body weight 58.05 kg MD Jacinto Max Work Phone: [facility] 02-18-2023 14:00-0500 Diastolic blood pressure 66 mm[Hg] Jacinto Max Other [facility] 02-18-2023 14:00-0500 Systolic blood pressure 150 mm[Hg] Jacinto Henson [facility] 02-16-2023 13:30-0500 Body height 167.64 cm Gypsy Mcmahon Other [facility] 02-16-2023 13:30-0500 Body mass index (BMI) [Ratio] 20.66 kg/m2 Gypsy Mcmahon Other [facility] [employer] Other 02-16-2023 13:30-0500 Body weight 58.06 kg Gypsy Mcmahon Other [facility] [employer] Other 02-16-2023 13:30-0500 Body weight 58.05 kg MD Jacinto Max Work Phone: [facility] 02-16-2023 13:30-0500 Diastolic blood pressure 68 mm[Hg] Gypsy Mcmahon Other [facility] 02-16-2023 13:30-0500 SaO2% (BldA) [Mass fraction] 96 % Gypsy Mcmahon Other [facility] [employer] Other 02-16-2023 13:30-0500 Systolic blood pressure 140 mm[Hg] Gypsy Mcmahon Other [facility] 02-04-2023 09:09-0500 Heart rate 84 /min MALATHI DEB [facility] 02-04-2023 09:09-0500 SaO2% (BldA) [Mass fraction] 95 % MALATHI DEB [facility] 02-04-2023 09:08-0500 Diastolic blood pressure 88 mm[Hg] MALATHI DEB [facility] 02-04-2023 09:08-0500 Mean blood pressure 121 mm[Hg] MALATHI DEB [facility] 02-04-2023 09:08-0500 Systolic blood pressure 188 mm[Hg] MALATHI DEB [facility] 02-04-2023 09:08-0500 Respiratory rate 20 /min MALATHI DEB [facility] 02-04-2023 09:08-0500 Body temperature 97.7 [degF] AMLATHI DEB [facility] 02-03-2023 09:15-0500 Heart rate 77 /min MALATHI DEB [facility] 02-03-2023 09:15-0500 SaO2% (BldA) [Mass fraction] 97 % MALATHI DEB [facility] 02-03-2023 09:14-0500 Respiratory rate 18 /min MALATHI DEB [facility] 02-03-2023 09:14-0500 Diastolic blood pressure 97 mm[Hg] MALATHI DEB [facility] 02-03-2023 09:14-0500 Mean blood pressure 130 mm[Hg] MALATHI DEB [facility] 02-03-2023 09:14-0500 Systolic blood pressure 197 mm[Hg] MALATHI DEB [facility] 02-03-2023 09:13-0500 Body temperature 98.06 [degF] MALATHI DEB [facility] 02-02-2023 09:10-0500 Heart rate 75 /min MALATHI DEB [facility] 02-02-2023 09:10-0500 SaO2% (BldA) [Mass fraction] 93 % MALATHI DEB [facility] 02-02-2023 09:09-0500 Respiratory rate 20 /min MALATHI DEB [facility] 02-02-2023 09:08-0500 Diastolic blood pressure 87 mm[Hg] MALATHI DEB [facility] 02-02-2023 09:08-0500 Mean blood pressure 123 mm[Hg] MALATHI DEB [facility] 02-02-2023 09:08-0500 Systolic blood pressure 194 mm[Hg] MALATHI DEB [facility] 02-02-2023 09:08-0500 Body temperature 97.7 [degF] MALATHI DEB [facility] 02-01-2023 09:50-0500 Heart rate 77 /min MALATHI DEB [facility] 02-01-2023 09:50-0500 Mean blood pressure 115 mm[Hg] MALATHI DEB [facility] 02-01-2023 09:10-0500 Heart rate 84 /min MALATHI DEB [facility] 01-29-2023 11:26-0500 Heart rate 75 /min MALATHI DEB [facility] 01-29-2023 11:26-0500 SaO2% (BldA) [Mass fraction] 95 % MALATHI DEB [facility] 01-29-2023 11:26-0500 Respiratory rate 16 /min MALATHI DEB [facility] 01-29-2023 11:25-0500 Diastolic blood pressure 83 mm[Hg] MALATHI DEB [facility] 12-22-2023 11:25-0500 Mean blood pressure 108 mm[Hg] MALATHI DEB [facility] 01-29-2023 11:25-0500 Systolic blood pressure 158 mm[Hg] MALATHI DEB [facility] 01-29-2023 11:25-0500 Body temperature 98.06 [degF] MALATHI DEB [facility] 01-29-2023 10:54-0500 Heart rate 74 /min MALATHI [facility] 01-29-2023 10:54-0500 SaO2% (BldA) [Mass fraction] 97 % MALATHI DEB [facility] 01-29-2023 10:54-0500 Respiratory rate 16 /min MALATHI DEB [facility] 01-29-2023 10:53-0500 Body temperature 97.52 [degF] MALATHI DEB [facility] 01-29-2023 10:53-0500 Diastolic blood pressure 84 mm[Hg] MALATHI DEB [facility] 01-29-2023 10:53-0500 Mean blood pressure 104 mm[Hg] MALATHI DEB [facility] 01-29-2023 10:53-0500 Systolic blood pressure 146 mm[Hg] MALATHI DEB [facility] 01-12-2023 13:30-0500 Body height 167.64 cm Hunter Brown Other [facility] Other 01-12-2023 13:30-0500 Body mass index (BMI) [Ratio] 22 kg/m2 Hunter Brown Other [facility] Other 01-12-2023 13:30-0500 Body weight 61.83 kg Hunter Brown Other [facility] Other 01-12-2023 13:30-0500 Diastolic blood pressure 60 mm[Hg] Hunter Brown Other [facility] Other 01-12-2023 13:30-0500 Systolic blood pressure 137 mm[Hg] Hunter Brown Other [facility] Other 01-05-2023 11:30-0500 Body height 167.64 cm Gypsy Mcmahon Other [facility] Other 01-05-2023 11:30-0500 Body mass index (BMI) [Ratio] 21.63 kg/m2 Gypsy Mcmahon Other [facility] Other 01-05-2023 11:30-0500 Body weight 60.78 kg Gypsy Mcmahon Other [facility] Other 01-05-2023 11:30-0500 Diastolic blood pressure 72 mm[Hg] Gypsy Mcmahon Other [facility] Other 01-05-2023 11:30-0500 Systolic blood pressure 162 mm[Hg] Gypsy Mcmahon Other [facility] Other 12-28-2022 13:30-0500 Body height 167.64 cm Malathi Velázquez Other [facility] Other 12-28-2022 13:30-0500 Body mass index (BMI) [Ratio] 19.98 kg/m2 Malathi Velázquez Other [facility] Other 12-28-2022 13:30-0500 Body weight 56.16 kg Malathi Hoodinez Other [facility] Other 12-28-2022 13:30-0500 Diastolic blood pressure 78 mm[Hg] Malathi Melania Other [facility] Other 12-28-2022 13:30-0500 Systolic blood pressure 146 mm[Hg] Malathi Melania Other [facility] Other 12-15-2022 11:15-0500 Body height 167.64 cm Gypsy Mcmahon Other [facility] Other 12-15-2022 11:15-0500 Body mass index (BMI) [Ratio] 21.53 kg/m2 Gypsy Mcmahon Other [facility] Other 12-15-2022 11:15-0500 Body weight 60.51 kg Gypsy Mcmahon Other [facility] Other 12-15-2022 11:15-0500 Diastolic blood pressure 73 mm[Hg] Gypsy Mcmahon Other [facility] Other 12-15-2022 11:15-0500 Systolic blood pressure 178 mm[Hg] Gypsy Mcmahon Other [facility] Other 09-22-2022 14:14-0400 Blood Pressure Location MALATHI VIEIRA [facility] 09-22-2022 14:14-0400 Diastolic blood pressure 90 mm[Hg] MALATHI VIEIRA [facility] 09-22-2022 14:14-0400 Heart rate 78 /min MALATHI VIEIRA [facility] 09-22-2022 14:14-0400 Systolic blood pressure 142 mm[Hg] MALATHI VIEIRA [facility] 09-01-2022 14:15-0400 Body height 167.64 cm Gypsy Mcmahon Other [facility] Other 09-01-2022 14:15-0400 Body mass index (BMI) [Ratio] 21.14 kg/m2 Gypsy Mcmahon Other [facility] Other 09-01-2022 14:15-0400 Body weight 59.42 kg Gypsy Mcmahon Other [facility] Other 09-01-2022 14:15-0400 Diastolic blood pressure 56 mm[Hg] Gypsy Mcmahon Other [facility] Other 09-01-2022 14:15-0400 Systolic blood pressure 132 mm[Hg] Gypsy Mcmahon Other [facility] Other 06-09-2022 13:42-0400 Diastolic blood pressure 71 mm[Hg] Marvin KWON [facility] 06-09-2022 13:42-0400 Heart rate 59 /min Marvin KWON [facility] 06-09-2022 13:42-0400 Systolic blood pressure 183 mm[Hg] Marvin KWON [facility] 04-24-2022 11:30-0400 Body height 167.64 cm Hunter Brown Other [facility] Other 04-24-2022 11:30-0400 Body mass index (BMI) [Ratio] 22.11 kg/m2 Hunter Brown Other [facility] Other 04-24-2022 11:30-0400 Body weight 62.14 kg Hunter Brown Other [facility] Other 04-24-2022 11:30-0400 Diastolic blood pressure 70 mm[Hg] Hunter Brown Other [facility] Other 04-24-2022 11:30-0400 Systolic blood pressure 159 mm[Hg] Hunter Brown Other [facility] Other 04-07-2022 14:15-0500 Body height 167.64 cm Gypsy Mcmahon Other [facility] Other 04-07-2022 14:15-0500 Body mass index (BMI) [Ratio] 21.79 kg/m2 Gypsy Mcmahon Other [facility] Other 04-07-2022 14:15-0500 Body weight 61.24 kg Gypsy Mcmahon Other [facility] Other 04-07-2022 14:15-0500 Diastolic blood pressure 62 mm[Hg] Gypsy Mcmahon Other [facility] Other 04-07-2022 14:15-0500 Systolic blood pressure 130 mm[Hg] Gypsy Mcmahon Other [facility] Other 03-11-2022 13:35-0500 Body temperature 97.5 [degF] MD Gypsy Mcmahon Work Phone: [facility] 03-11-2022 13:35-0500 Diastolic blood pressure 61 mm[Hg] MD Gypsy Mcmahon Work Phone: [facility] 03-11-2022 13:35-0500 Heart rate 60 /min MD Gypsy Mcmahon Work Phone: [facility] 03-11-2022 13:35-0500 Respiratory rate 18 /min MD Gypsy Mcmahon Work Phone: [facility] 03-11-2022 13:35-0500 SaO2% (BldA) [Mass fraction] 96 % MD Gypsy Mcmahon Work Phone: [facility] 03-11-2022 13:35-0500 Systolic blood pressure 135 mm[Hg] MD Gypsy Mcmahon Work Phone: [facility] 02-16-2022 10:45-0500 Body height 167.64 cm Gypsy Mcmahon Other [facility] [employer] Other 02-16-2022 10:45-0500 Body mass index (BMI) [Ratio] 21.46 kg/m2 Gypsy Mcmahon Other [facility] [employer] Other 02-16-2022 10:45-0500 Body weight 60.33 kg Gypsy Mcmahon Other [facility] Other 02-16-2022 10:45-0500 Diastolic blood pressure 70 mm[Hg] Gypsy Mcmahon Other [facility] Other 02-16-2022 10:45-0500 Systolic blood pressure 120 mm[Hg] Gypsy Mcmahon Other [facility] Other 02-11-2022 12:00-0500 Body height 172.72 cm Hunter Brown Other [facility] Other 02-11-2022 12:00-0500 Body mass index (BMI) [Ratio] 20.83 kg/m2 Hunter Brown Other [facility] Other 02-11-2022 12:00-0500 Body weight 62.14 kg Hunter Brown Other [facility] Other 02-11-2022 12:00-0500 Diastolic blood pressure 68 mm[Hg] Hunter Brown Other [facility] Other 02-11-2022 12:00-0500 Systolic blood pressure 144 mm[Hg] Hunter Brown Other [facility] Other 01-05-2022 10:30-0500 Body height 172.72 cm Hunter Brown Other [facility] Other 01-05-2022 10:30-0500 Body mass index (BMI) [Ratio] 22.04 kg/m2 Hunter Brown Other [facility] Other 01-05-2022 10:30-0500 Body weight 65.77 kg Hunter Brown Other [facility] Other 01-05-2022 10:30-0500 Diastolic blood pressure 78 mm[Hg] Hunter Brown Other [facility] Other 01-05-2022 10:30-0500 Systolic blood pressure 166 mm[Hg] Hunter Brown Other [facility] Other 03-27-2021 12:00-0500 Body height 172.72 cm Giana Griffiths Other [facility] Other 03-27-2021 12:00-0500 Body mass index (BMI) [Ratio] 22.96 kg/m2 Giana Griffiths Other [facility] Other 03-27-2021 12:00-0500 Body weight 68.49 kg Giana Griffiths Other [facility] Other 01-27-2021 10:45-0500 Body height 172.72 cm Giana Griffiths Other [facility] Other 01-27-2021 10:45-0500 Body mass index (BMI) [Ratio] 24.48 kg/m2 Giana Griffiths Other [facility] Other 01-27-2021 10:45-0500 Body weight 73.03 kg Giana Griffiths Other [facility] Other Encounters Encounter Date Encounter Type Care Provider Facility Start: 05-05-2023 End: 05-05-2023 Emergency department patient visit Marvin Garcia Facility:[facility] Start: 05-05-2023 End: 05-05-2023 Emergency department patient visit MD Jacinto Max Work Phone: [facility] Work Phone: Start: 05-01-2023 Non-patient / Non-visit MD Jacinto Max Work Phone: [facility] Work Phone: Start: 04-15-2023 End: 04-15-2023 Patient encounter procedure MD Jacinto Max Work Phone: [facility] Infectious Disease Work Phone: Start: 04-06-2023 Non-patient / Non-visit MD Jacinto Max Work Phone: [facility] Work Phone: Start: 03-12-2023 End: 03-12-2023 ambulatory Jacinto Max Other [facility] Other Start: 03-12-2023 Telephone encounter Jacinto BA [facility] Start: 03-11-2023 End: 03-11-2023 ambulatory Jacinto Max Other [facility] Other Start: 03-11-2023 Telephone encounter Jacinto BA [facility] Start: 03-02-2023 End: 03-02-2023 ambulatory Gypsy Mcmahon Other [facility] Other Start: 03-02-2023 Telephone encounter Gypsy Mcmahon [facility] Start: 02-26-2023 End: 02-26-2023 Patient encounter procedure MD Jacinto Max Work Phone: [facility]- Start: 02-25-2023 End: 02-25-2023 ambulatory Jacinto Max Facility:[facility] Start: 02-25-2023 End: 02-25-2023 ambulatory MD Jacinto Max Work Phone: [facility] Work Phone: Start: 02-25-2023 End: 02-25-2023 Discharged Recurring MD Jacinto Max Work Phone: [facility]-Infusion Therapy - O/P Work Phone: Start: 02-18-2023 End: 02-18-2023 ambulatory Jacinto Max Other [facility] Other Start: 02-18-2023 Office outpatient ne w 45 minutes Jacinto EUGENE Infect[facility] Start: 02-18-2023 End: 02-18-2023 Patient encounter procedure MD Jacinto Max Work Phone: [facility] Infectious Disease Work Phone: Start: 02-16-2023 End: 02-16-2023 ambulatory Gypsy Mcmahon Other [facility] Other Start: 02-16-2023 Office outpatient visit 15 minutes Gypsy Mcmahon [facility] Start: 02-16-2023 End: 02-16-2023 Patient encounter procedure MD Jacinto Max Work Phone: [facility] Work Phone: Start: 01-29-2023 End: 05-06-2023 ambulatory MALATHI VIEIRA Facility:[facility] Start: 01-29-2023 End: 01-29-2023 Patient encounter procedure MALATHI VIEIRA [facility] Start: 01-29-2023 End: 05-05-2023 Recurring MALATHI VIEIRA [facility] Start: 01-26-2023 End: 01-26-2023 Patient encounter procedure MALATHI VIEIRA [facility] Start: 01-26-2023 End: 01-27-2023 ambulatory MALATHI VIEIRA [facility] [employer] Other Start: 01-26-2023 Telephone encounter Hunter brady [facility] Start: 01-20-2023 End: 01-20-2023 ambulatory Hunter Brown Other [facility] Other Start: 01-20-2023 Telephone encounter Hunter brady [facility] Start: 01-12-2023 End: 01-12-2023 ambulatory Hunter Brown Other [facility] Other Start: 01-12-2023 Office outpatient visit 25 minutes Hunter Brown [facility] Start: 01-12-2023 End: 01-12-2023 Patient encounter procedure MD Jacinto Max Work Phone: [facility] Work Phone: Start: 01-11-2023 End: 01-11-2023 ambulatory Gypsy Mcmahon Other [facility] Other Start: 01-11-2023 Telephone encounter Gypsy Lisandro [facility] Start: 01-05-2023 End: 01-05-2023 ambulatory Gypsy Mcmahon Other [facility] Other Start: 01-05-2023 Telephone encounter Gypsy Mcmahon [facility] Start: 01-05-2023 Transitional care manage srvc 14 day discharge Gypsy Mcmahon [facility] Start: 01-05-2023 End: 01-05-2023 Patient encounter procedure MD Jacinto Max Work Phone: [facility] Work Phone: Start: 12-30-2022 End: 12-30-2022 ambulatory Malathi Velázquez Other [facility] Other Start: 12-30-2022 Telephone encounter Malathi arias [facility] Start: 12-28-2022 End: 12-28-2022 ambulatory Malathi Velázquez Other [facility] Other Start: 12-28-2022 Office outpatient visit 15 minutes Malathi Velázquez [facility] Start: 12-28-2022 End: 12-28-2022 Patient encounter procedure MD Jacinto Max Work Phone: [facility] Work Phone: Start: 12-15-2022 End: 12-15-2022 ambulatory Gypsy Mcmahon Other [facility] Other Start: 12-15-2022 Office outpatient visit 15 minutes Gypsy Mcmahon [facility] Start: 12-15-2022 Telephone encounter Gypsy Mcmahon [facility] Start: 12-15-2022 End: 12-15-2022 Patient encounter procedure MD Jacinto Max Work Phone: [facility] Work Phone: Start: 11-11-2022 End: 11-11-2022 ambulatory [facility] Start: 10-29-2022 End: 10-29-2022 ambulatory Hunter Brown Facility:[facility] Start: 09-22-2022 End: 09-23-2022 ambulatory MALATHI VIEIRA Facility:[facility] Start: 09-22-2022 End: 09-22-2022 Patient encounter procedure MALATHI VIEIRA [facility] Start: 09-10-2022 End: 09-10-2022 ambulatory Jose G Ellington Other [facility] Other Start: 09-10-2022 Nursing evaluation o f patient and report Jose G Ellington [facility] Start: 09-08-2022 End: 09-08-2022 ambulatory Hunter Brown Other [facility] Other Start: 09-08-2022 [address] Hunter brady [facility] G[facility] Start: 09-01-2022 End: 09-01-2022 ambulatory Gypsy Mcmahon Other [facility] Other Start: 09-01-2022 Office outpatient visit 15 minutes Gypsy Mcmahon [facility] Start: 08-27-2022 End: 08-27-2022 ambulatory Gypsy Mcmahon Other [facility] Other Start: 08-27-2022 Telephone encounter Gypsy Mcmahon [facility] Start: 06-30-2022 End: 06-30-2022 ambulatory [facility] Start: 06-09-2022 End: 06-10-2022 ambulatory Marvin KWON Facility:[facility] Start: 06-09-2022 End: 06-09-2022 Patient encounter procedure Marvin KWON [facility] Start: 05-27-2022 End: 05-28-2022 ambulatory MALATHI VIEIRA Facility:[facility] Start: 05-19-2022 End: 05-20-2022 ambulatory GYPSY MCMAHON Facility:[facility] Start: 05-19-2022 End: 05-19-2022 Patient encounter procedure MALATHI VIEIRA [facility] Start: 05-14-2022 End: 05-14-2022 ambulatory Gypsy Mcmahon Other [facility] Other Start: 05-14-2022 Telephone encounter Gypsy Mcmahon [facility] Start: 05-11-2022 End: 05-12-[address] GYPSY MCMAHON Facility:[facility] Start: 05-01-2022 (Televisit) Televisit Gypsy Mcmahon [facility] Start: 05-01-2022 End: 05-01-2022 ambulatory Gypsy Mcmahon Other [facility] Other Start: 05-01-2022 Telephone encounter Gypsy Mcmahon [facility] Start: 04-28-2022 End: 04-29-[address] GYPSY MCMAHON Facility:[facility] Start: 04-24-2022 End: 04-24-2022 ambulatory Hunter Brown Other [facility] Other Start: 04-24-2022 Office outpatient visit [address] [facility] Start: 04-16-2022 End: 04-16-2022 ambulatory Gypsy Mcmahon Other [facility] Other Start: 04-16-2022 Telephone encounter Gypsy Mcmahon [facility] Start: 04-14-2022 End: 04-14-[address] GYPSY MCMAHON Facility:[facility] Start: 04-07-2022 End: 04-07-2022 ambulatory Gypsy Mcmahon Other [facility] Other Start: 04-07-2022 Office outpatient visit 15 minutes Gypsy Mcmahon [facility] Start: 04-03-2022 End: 04-03-2022 ambulatory Gypsy Mcmahon Other [facility] Other Start: 04-03-2022 Telephone encounter Gypsy Mcmahon [facility] Start: 03-30-2022 End: 03-30-2022 Departed Referred MD Gypsy Mcmahon Work Phone: [facility] Work Phone: Start: 03-30-2022 End: 03-30-2022 ambulatory MD Gypsy Mcmahon Work Phone: [facility] Work Phone: Start: 03-30-2022 Nursing evaluation o f patient and report Gypsy Mcmahon [facility] Start: 03-20-2022 End: 03-21-[address] GYPSY MCMAHON Facility:[facility] Start: 03-19-2022 End: 03-19-2022 ambulatory Hunter Brown Other [facility] Other Start: 03-19-2022 Telephone encounter Hunter Palomo [facility] Start: 03-11-2022 Registered Recurring MD Gypsy Mcmahon Work Phone: [facility]fusion [facility] - [facility] Work Phone: Start: 02-23-2022 End: 02-24-[address] GYPSY MCMAHON Facility:[facility] Start: 02-19-2022 End: 02-19-2022 ambulatory Gypsy Mcmahon Other [facility] Other Start: 02-19-2022 Telephone encounter Gypsy Mcmahon [facility] Start: 02-17-2022 End: 02-18-[address] GYPSY MCMAHON Facility:[facility] Start: 02-16-2022 End: 02-16-2022 ambulatory Gypsy Mcmahon Other [facility] Other Start: 02-16-2022 Office outpatient visit 15 minutes Gypsy Mcmahon [facility] Start: 02-16-2022 End: 02-16-2022 Departed Referred MD Gypsy Mcmahon Work Phone: [facility] Work Phone: Start: 02-11-2022 End: 02-11-2022 ambulatory Hunter Brown Other [facility] Other Start: 02-11-2022 Office outpatient visit 15 minutes Hunter Brown [facility] Start: 02-11-2022 Telephone encounter Hunter brady [facility] Start: 01-26-2022 End: 01-27-[address] GYPSY MCMAHON Facility:[facility] Start: 01-15-2022 End: 01-16-[address] GYPSY MCMAHON Facility:[facility] Start: 01-06-2022 End: 01-06-2022 ambulatory Hunter Brown Other [facility] Other Start: 01-06-2022 Telephone encounter Hunter brady [facility] Start: 01-05-2022 End: 01-06-2022 ambulatory CLAU Shrestha [facility] [employer] Other Start: 01-05-2022 Office outpatient visit 25 minutes Hunter Brown [facility] Start: 12-27-2021 End: 12-27-[address] REY MONTGOMERY Facility:[facility] Start: 12-18-2021 End: 12-19-2021 ambulatory CLAU NASCIMENTO Facility:[facility] Start: 12-08-2021 End: 12-09-[address] GYPSY MCMAHON Facility:[facility] Start: 11-18-2021 End: 11-18-2021 ambulatory Hunter Brown Other [facility] Other Start: 11-18-2021 Telephone encounter Hunter Stacia [facility] Start: 11-17-2021 End: 11-18-2021 ambulatory [...] 08-18-2021 End: 08-18-2021 ambulatory Giana Griffiths Other [facility] Other Start: 08-18-2021 Telephone encounter Giana Griffiths [facility] Start: 08-12-2021 End: 08-12-[address] GYPSY MCMAHON Facility:[facility] Start: 04-22-2021 End: 04-22-2021 ambulatory Giana Griffiths Other [facility] Other Start: 04-22-2021 Telephone encounter Giana Griffiths [facility] Start: 03-27-2021 End: 03-27-2021 ambulatory Giana Griffiths Other [facility] Other Start: 03-27-2021 Office outpatient visit 25 minutes Giana Griffiths [facility] Start: 01-27-2021 End: 01-27-2021 ambulatory Giana Griffiths Other [facility] Other Start: 01-27-2021 Office outpatient visit 25 minutes Giana Griffiths [facility] Start: 01-27-2021 Telephone encounter Giana Rhoadesluis [facility] Procedures Date Procedure Procedure Detail Performing Clinician Start: 06-09-2022 Cystoscopy Marvin EMILI BOB Start: 02-16-2022 Piperacillin/tazobactam Gypsy Mcmahon Other Start: 02-16-2022 Urine culture MD Gypsy Mcmahon Work Phone: Start: 03-24-2012 Hernia of abdominal cavity (disorder) MALATHI VIEIRA Start: 10-07-2009 Cystoscopy MALATHI Brower SABAHemant Start: 09-12-2009 Introduction of tens ion free vaginal tape MALATHI VIEIRA Start: 07-25-2009 Urodynamic studies CAMMY VIEIRA Bilateral cataracts (disorder) MALATHI VIEIRA Coronary artery bypa ss grafts x 4 MALATHI VIEIRA Excision of sphincte r of anus MALATHI VIEIRA Gallbladder structur e (body structure) MALATHI VIEIRA History of total hysterectomy MALATHI VIEIRA Knee region structur e (body structure) MALATHI VIEIRA Plan of Treatment Date Care Activity Detail Author Start: 06-15-2023 ambulatory Ambulatory Facility[facility] Start: 03-30-2022 Bacteria identified in Urine by Culture [facility] Patient referral [facility] Work Phone: Immunizations Immunization Date Immunization Notes Care Provider Mikey henry 02-16-2022 Shingrix 50 MCG/0.5M L; 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: [Shingrix 50 MCG/0.5ML] Hunter Brown Other [facility] Other 01-15-2022 influenza virus vaccine, unspecified formulation MALATHI DEB [facility] 01-15-2022 SARS-CoV-2 (COVID-19 ) [id number] MALATHI DEB [facility] 01-23-2021 SARS-CoV-2 (COVID-19 ) mRNA BNT-162b2 vax MALATHI DEB [facility] 01-06-2021 influenza virus vaccine, unspecified formulation MALATHI DEB [facility] 03-27-2020 SARS-CoV-2 (COVID-19 ) mRNA BNT-162b2 vax MALATHI DEB [facility] 03-04-2020 SARS-CoV-2 (COVID-19 ) mRNA [id number] vax MALATHI DEB [facility] 12-06-2019 influenza virus vaccine, unspecified formulation MALATHI DEB [facility] 12-14-2018 influenza virus vaccine, unspecified formulation MALATHI DEB [facility] 02-02-2018 influenza virus vaccine, unspecified formulation MALATHI DEB [facility] 11-08-2017 pneumococcal polysaccharide vaccine, 23 valent MALATHI DEB [facility] 11-02-2017 influenza virus vaccine, unspecified formulation MALATHI DEB [facility] 12-09-2016 influenza virus vaccine, unspecified formulation MALATHI DEB [facility] 12-02-2016 influenza virus vaccine, unspecified formulation MALATHI VIEIRA [facility] 12-17-2015 influenza virus vaccine, unspecified formulation MALATHI DEB [facility] 10-10-2015 influenza virus vaccine, unspecified formulation MALATHI DEB [facility] 11-19-2014 influenza virus vaccine, unspecified formulation MALATHI DEB [facility] 11-09-2014 pneumococcal polysaccharide vaccine, 23 valent MALATHI VIEIRA [facility] NEGATED: Highlighted row has not occurred!01-26-2023 influenza virus vaccine, unspecified formulation MALATHI VIEIRA [facility] Payers Date Payer Category Payer Self-pay [id number] 1958 [facility] [id number] 1958 Medicare [id number] 2.1 [id number] 1936 Unknown [id number] 2.16.84 0.1.976829.3.579.2.593 1936 Unknown [id number] 2.16.84 0.1.253495.3.579.2.593 1936 Unknown [id number] 2.16.84 0.1.659082.3.579.2.593 1936 Unknown [id number] 2.16.84 0.1.204828.3.579.2.593 1936 Unknown [id number] 2.16.84 0.1.351434.3.579.2.593 1936 Unknown [id number] 2.16.84 0.1.144648.3.579.2.593 1936 Unknown [id number] 2.16.84 0.1.802659.3.579.2.593 1936 Unknown [id number] 2.16.84 0.1.771207.3.579.2.593 1936 Unknown [id number] 2.16.84 0.1.985726.3.579.2.593 1936 Unknown [id number] 2.16.84 0.1.665976.3.579.2.593 1936 Unknown [id number] 2.16.84 0.1.406438.3.579.2.593 1936 Unknown [id number] 2.16.84 0.1.024960.3.579.2.593 1936 Unknown [id number] 2.16.84 0.1.466765.3.579.2.593 1936 Unknown [id number] 2.16.84 0.1.370217.3.579.2.593 1936 Unknown [id number] 2.16.84 0.1.187159.3.579.2.593 1936 Unknown [id number] 2.16.84 0.1.747712.3.579.2.593 1936 Unknown [id number] 2.16.84 0.1.458279.3.579.2.593 1936 Unknown [id number] 2.16.84 0.1.008530.3.579.2.593 1936 Unknown [id number] 2.16.84 0.1.679998.3.579.2.593 1936 Unknown [id number] 2.16.84 0.1.908716.3.579.2.593 1936 Unknown [id number] 2.16.84 0.1.903013.3.579.2.593 1936 Unknown [id number] 2.16.8 40.1.714915.3.579.2.727 1936 Unknown [id number] 2.16.8 40.1.277129.3.579.2.727 1936 Unknown [id number] 2.16.8 40.1.583746.3.579.2.727 1936 Unknown [id number] 2.16.8 40.1.125820.3.579.2.727 1936 Unknown [id number] 2.16.8 40.1.354067.3.579.2.727 1936 Unknown [id number] 2.16.8 40.1.465789.3.579.2.727 Unknown [id number] 2.16.8 40.1.326257.3.579.2.531 Unknown [id number] 2.16.8 40.1.174126.3.579.2.531 Social History Date Type Detail Facility Unknown if ever smoked [facility] Other Sex Assigned At [facility] Start: 1935 Sex Assigned At Female F [facility] Start: 05-19-2022 End: 06-09-2022 Tobacco smoking status Ex-smoker (finding) [facility] Start: 09-22-2022 Tobacco smoking status Never [facility] Start: 05-05-2023 [facility] Functional Status Date Assessment Result Facility 01-26-2023 Functional Status N/A [facility] 09-22-2022 Functional Status N/A [facility] 06-09-2022 Functional Status N/A [facility] [place] 05-19-2022 Functional Status N/A [facility] Clinical Notes 01-27-2021 to 03-12-2023 Note Date & Type Note Facility 03-12-2023 Evaluation note Encounter Date Diagnosis Assessment Notes Mar, 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 Symptom denney her daughter states she seems [...] infections. Preventative measures were discussed. Vitamin C paya-oaq-kjrosdf recommended as well as topical Thera workx [...] n due to immunosuppression (ICD-10 - Z91.89) [facility] Other 01-09-2024 Evaluation note* Encounter Date Diagnosis [...] pain. Feb, Pain, unspecified (ICD-10 - R52) [facility] Other 12-19-2023 Hospital Discharge instructions Patient Education 01/26/2023 16:05:17 Urinary Tract Infection, Adult, Gcjd-cf-Zkdp Urinary Tract Infection, Adult A urinary tract [...] Follow these instructions at home: Medicines Take vjgd-ztk-vmyrjtg and prescription medicines only as told by [...] provider. Document Revised: 09/06/2020 Document Reviewed: 09/06/2020 [employer] Patient Education 2022 [employer]. Follow Up Care 06/09/2022 14:50:19 With:MALATHI VIEIRA PA-C, URL Address: [address] [place] [place] [address] [phone] When: Unknown Comments:f[facility]u [facility]* Encounter Date Diagnosis Assessment Notes Treatment Notes Treatment Clinical Notes Jan, Diarrhea (ICD-10 - R19.7) [facility] Other 12-05-2023 Evaluation note* Encounter Date Diagnosis [...] a day, we will re-test for C-diff [facility] Other 11-28-2023 Evaluation note* Encounter Date Diagnosis Assessment Notes Treatment Notes Treatment Clinical Notes Dec, Clostridium difficile colitis (ICD-10 - A04.72) Finish meds as prescribed. (cipro, Flagyl) Followup w Dr. Brown as scheduled. Understands the c diff could recur. Followup as needed Discussed good nutrition and healthy diet. [facility] Other 11-20-2023 Evaluation note* Encounter Date Diagnosis Assessment Notes Treatment Notes Treatment Clinical Notes Dec, Diarrhea, unspecified type (ICD-10 - R19.7) Pt appears to be having secondary from viral infection. There is no abdominal pain on exam and pt is afebrile which is reassuring. C. diff infection is a possibility as she was recently treated wt antibitics for a UTI, will check stool [...] Pt understands and agrees with the plan. [facility] Other 11-07-2023 Evaluation note* Encounter Date Diagnosis Assessment Notes Treatment Notes Treatment Clinical Notes Dec, Frequent UTI (ICD-10 - N39.0) [facility] Other 11-07-2023 Evaluation note* Encounter Date Diagnosis [...] w Dr. Licea today. Consider PT at [facility] or the alloy. [facility] [...] Rfl: miscellaneous medical supply (Blood Pressure Cuff) [facility], 1 kit in the morning and at [...] veins Hypertension - Uncon (more content not included)...[facility]08-15-2023 Hospital Discharge instructions Patient Education 09/22/2022 15:32:53 Urinary Tract Infection, Adult, Rxxu-ye-Higf Urinary Tract Infection, Adult A urinary tract [...] Follow these instructions at home: Medicines Take jtvx-mne-slyjvnu and prescription medicines only as told by [...] provider. Document Revised: 09/06/2020 Document Reviewed: 09/06/2020 [employer] Patient Education 2022 [employer]. Follow Up Care 09/22/2022 10:38:22 With:MALATHI VIEIRA PA-C, URL Address: [address] [place] [address] When: Unknown [facility] 08-03-2023 Evaluation note* Encounter Date Diagnosis Assessment Notes Treatment Notes Treatment Clinical Notes Sep, Dysuria (ICD-10 - R30.0) [facility] Other 08-01-2023 Evaluation note* Encounter Date Diagnosis Assessment Notes Treatment Notes Treatment Clinical Notes Sep, Microscopic colitis, unspecified microscopic colitis type (ICD-10 - K52.839) [facility] Other 07-25-2023 Evaluation note* Encounter Date Diagnosis Assessment Notes Treatment Notes Treatment Clinical Notes Aug, Frequent UTI (ICD-10 - N39.0) Continue estrogen cream. Review with Urology on her followup appt. Discussed causes of UTIs Aug, Lymphocytic colitis (ICD-10 - K52.832) Improved with GI at [facility]. 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 Barry. Reviewed medications and explained their purpose. [facility] Other 07-20-2023 Evaluation note* Encounter Date Diagnosis Assessment Notes Treatment Notes Treatment Clinical Notes Aug, Recurrent UTI (ICD-10 - N39.0) [facility] Other [facility] [...] asked her to discuss this with her christian science reader. Depending on the risk-benefit ratio will consider starting 1 or the other. She is on Zocor which is not ideal. If her cholesterol is not controlled, would suggest switching her to 40 mg of Lipitor or 20 mg of Crestor. Follow-up in 6 months or sooner should problems arise or her stress test revealed ischemia Jake Barry MD, MPH, FACC, [facility], [facility] Interventional Cardiology Pager Email: [email or web address]05-02-2023 Hospital Discharge instructions Patient Education 06/09/2022 14:15:56 Urinary Tract Infection, Adult, Aodr-mt-Qllg Urinary Tract Infection, Adult A urinary tract [...] Follow these instructions at home: Medicines Take yqxj-jjq-hwzzpbh and prescription medicines only as told by [...] provider. Document Revised: 09/06/2020 Document Reviewed: 09/06/2020 [employer] Patient Education 2022 [employer]. Follow Up Care 06/01/2022 10:03:13 With:CHER KRISHNAN, Marvin Camacho, URL Address: [facility] [address] [place] [address] [phone] When:10/10/2022 [facility] 04-11-2023 NoteChief Complaint Referral *Recurrent UTI HPI [...] anesthesia. 2. Feeling o (more content not included)...[facility]Result Comment: Electronically Signed By: MALATHI VIEIRA PA-C\.br\Date and Time Signed: 05/19/2313:49 EDT\.br\Electronically Co-Signed By: Ela Smith.br\Date and Time Co-Signed: 05/19/22 14:40 [id number] Hospital Discharge instructions Patient Education 05/19/2022 14:16:45 [...] Treatment for this condition includes: Antibiotic medicine. Adgg-zua-izcpyld medicines to treat discomfort. Drinking enough water [...] Follow these instructions at home: Medicines Take ivfc-vvv-vefjgsb and prescription medicines only as told by [...] 11/04/2005 Document Revised: 01/12/2019 Document Reviewed: 08/04/2018 [employer] Patient Education 2020 [employer]. Follow Up Care 04/20/2022 10:50:51 With:DEB ZAZUETA, MALATHI Olvera, URL Address: [address] [place] [place] [address] When: Unknown [facility] 04-06-2023 Evaluation note* Encounter Date Diagnosis Assessment Notes Treatment Notes Treatment Clinical Notes May, Frequent UTI (ICD-10 - N39.0) [facility] Other 03-24-2023 Evaluation note* Encounter Date Diagnosis [...] back this morning. antibiotic at her pharmacy. [facility] Other 03-17-2023 Evaluation note* Encounter Date Diagnosis Assessment Notes Treatment Notes Treatment Clinical Notes Apr, Lymphocytic colitis (ICD-10 - K52.832) Continue Entyvio as directed Continue Lotronex 0.5 mg 1/2 tablet daily Rto 4 months [facility] Other 03-09-2023 Evaluation note* Encounter Date Diagnosis Assessment Notes Treatment Notes Treatment Clinical Notes Apr, Acute cystitis without hematuria (ICD-10 - N30.00) [facility] Other 02-28-2023 Evaluation note* Encounter Date Diagnosis Assessment Notes Treatment Notes Treatment Clinical Notes Mar, Recurrent UTI (ICD-10 - N39.0) Discussed options. Will try estrogen cream for vaginal health. Denies personal history of female cancers. Will also set up w Urology Mar, Colitis (ICD-10 - K52.9) Further treatment with Dr. Brown w appt on 04/24 [facility] Other 02-20-2023 Evaluation note* Encounter Date Diagnosis Assessment Notes Treatment Notes Treatment Clinical Notes Mar, Dysuria (ICD-10 - R30.0) [facility] Other 01-09-2023 Evaluation note* Encounter Date Diagnosis Assessment Notes Treatment Notes Treatment Clinical Notes Feb, Acute cystitis without hematuria (ICD-10 - N30.00) Sent to [facility] for urine culture - will treat based on results. Feb, Encounter for immunization (ICD-10 - Z23) Feb, Microscopic colitis, unspecified microscopic colitis type (ICD-10 - K52.839) Keep appt w Dr. Brown. Discussed boost or other supplement to gain weight Feb, Gastric ulcer (ICD-10 - K25.9) Encouraged her to continue pantoprazole [facility] Other 01-04-2023 Evaluation note* Encounter Date Diagnosis Assessment Notes Treatment Notes Treatment Clinical Notes Feb, Lymphocytic colitis (ICD-10 - K52.832) Start Entyvio infusions every 8 weeks Continue Budesonide, Alosetron, Imodium, and Pepto for now until starting Entyvio. Pt to keep record of bowel movements - how many and consistency Follow up in 2 months Feb, Fecal incontinence (ICD-10 - R15.9) [facility] Other 11-28-2022 Evaluation note* Encounter Date Diagnosis [...] Pantoprazole as prescribed Okay to stop Sucralfate [facility] Other 09-25-2022 NoteOPERATIVE NOTE OPERATION DATE: 11/04/2021 [...] was taken to PACU in good condition.[facility] 03-27-2021 Evaluation note* Encounter Date Diagnosis Assessment Notes Treatment Notes Treatment Clinical Notes Mar, Microscopic colitis, unspecified microscopic colitis type (ICD-10 - K52.839) INCREASE COLESTIPOL TO 4 TABS AT LUNCHTIME DAILY IF NOT IMPROVED ON HIGHER DOSE PT TO CALL ON 03/31 FOR ALTERNATIVE PLAN Mar, Irritable bowel syndrome with diarrhea (ICD-10 - K58.0) [facility] Other 12-20-2021 Evaluation note* Encounter Date Diagnosis Assessment Notes Treatment Notes Treatment Clinical Notes Jan, Microscopic colitis, unspecified microscopic colitis type (ICD-10 - K52.839) START COLESIPOL 2 PO DAILY CONTINUE BUDESONIDE WITHOUT CHANGE 3 PO Q AM AND MAYBE CONSIDERING STOP THIS IF COLESTIPOL IS WORKING ENOUGH TO CONTROL HER SYMPTOMS [facility] [employer] Other 12-20-2021 Evaluation note* Encounter Date Diagnosis Assessment Notes Treatment Notes Treatment Clinical Notes Jan, Microscopic colitis, unspecified microscopic colitis type (ICD-10 - K52.839) [facility] [employer] Other Evaluation + Plan note No data available for this section [facility] evaluation + Plan note Future Appointments Appointment Date:10/27/2022 01:00:00 PM Scheduled Provider:MALATHI VIEIRA PA-C Location[facility] Appointment Type:URO Office Visit [facility] Evaluation + Plan note Future Appointments Appointment Date:12/29/2022 01:00:00 PM Scheduled Provider:MALATHI VIEIRA PA-C Location:[facility] Appointment Type:URO Office Visit [facility] evaluation + Plan note Future Appointments Appointment Date:06/15/2023 02:00:00 PM Scheduled Provider:MALATHI VIEIRA PA-C Location:[facility] Appointment Type:URO Office Visit [facility] evaluation + Plan note Future Appointments Appointment Date:01/30/2023 10:30:00 AM Scheduled Provider: Location:[facility] Appointment Type:ASU IV Antibiotic (FT) Appointment Date:01/31/2023 10:30:00 AM Scheduled Provider: Location:[facility] Appointment Type:ASU IV Antibiotic (FT) Appointment Date:02/01/2023 10:30:00 AM Scheduled Provider: Location:[facility] Appointment Type:ASU IV Antibiotic (FT) Appointment Date:02/02/2023 10:30:00 AM Scheduled Provider: Location:[facility] Appointment Type:ASU IV Antibiotic (FT) Appointment Date:02/03/2023 10:30:00 AM Scheduled Provider: Location:[facility] Appointment Type:ASU IV Antibiotic (FT) Appointment Date:02/04/2023 10:30:00 AM Scheduled Provider: Location:[facility] Appointment Type:ASU IV Antibiotic (FT) Appointment Date:06/15/2023 02:00:00 PM Scheduled Provider:MALATHI VIEIRA PA-C [facility] [employer] Other Evaluation noteNo assessment information available [facility] Work Phone: Evaluation note* Diagnosis Onset Date Resolution Status Recurrent Clostridioides difficile diarrhea acute [facility] Work Phone: [employer] general Narrative - Reported* Type Description Date Medical History HTN Medical History hyperlipidemia Medical History microscopic colitis Surgical History T&A Surgical History Quad by-pass Surgical History total hysterectomy Surgical History gall bladder Surgical History Cataracts Surgical History Right Knee Scope Surgical History Sphincterectomy Surgical History Left Rotator Scope Surgical History Hernia Repair 03/24/2012 Hospitalization History See Surgical Hx [facility] Other [employer] general Narrative - Reported* Type Description Date [...] Hospitalization History See Surgical Hx Hospitalization History [facility] 12/2022 [facility] Other [employer] general Narrative - Reported* Type Description Date [...] Hospitalization History See Surgical Hx Hospitalization History [facility] 12/2022 [facility] Other [employer] general Narrative - Reported* Type Description Date [...] Hospitalization History See Surgical Hx Hospitalization History [facility] 12/2022 [facility] Other [employer] general Narrative - Reported* Type Description Date [...] Hospitalization History See Surgical Hx Hospitalization History [facility] 12/2022 [facility] Other Hospital Discharge instructions No data available for this section [facility] No data available for this section [facility] Summary Purpose Family History No Family History Records Found Relationship Condition Age at Onset Recorded Date/T carolee father Unknown Not Specified Unknown brother Malignant neoplasm Unknown Diabetes mellitus Unknown Advance Directives No Advanced Directives Records Found Advance Directive Response Recorded Date/ Time Advance Directives No November 22, 2017 9:57am Advance Directive Response Recorded Date/ Time Advance Directives No November 22, 2017 10:57am Hospital Course Note [facility] Clinical Discharge Summary PERSON INFORMATION Name DELICIA HSU Age 83 Years 1935 Sex FEMALE Language Lao PCP Lisandro KRISHNAN, Gypsy Olvera Marital Status Med Service Med/Surg Acct# Arrival 09/25/2019 06:52:00 Visit Reason SURGERY - LEFT TOTAL HIP Acuity LOS Address: [address] [place] [address] Comment: PROVIDER INFORMATION VITALS INFORMATION Vital Sign [...] Enrike Mora MD Procedure Findings Note Patient: DLEICIA HSU Age: 83 years Sex: FEMALE : [...] Up 3 Month Follow Up Legs A04.71 Chief Complaint Legs A04.71 Dizziness 2 MONTH diarrhea Reason for Visit Recurrent Clostridio ides difficile diarrhea Reason for Referral Reason DUPLICATE [place] [facility] - frequent UTIs. Diagnosis 1 Frequent UTI (N39.0) Referral Organization [facility] jah Referring Provider First Name Gypsy Referring Provider Last Name Lisandro Referring Provider Specialty [facility] [employer] [facility] Referred Provider Beau Hernandez Referred Address [address],[place],[address] Referred Provider Specialty Urology Referral Priority Routine General Notes Tatyana Bojorquez 01:56:52 PM >received today Tatyana Bojorquez 05/14/2022 02:02:41 PM >attachments made, notes locked, referral faxed Tatyana Bojorquez 05/14/2022 03:25:50 PM >DUPLICATE REFERRAL Reason *FU 04/28 [place] [facility] - recurrent UTIs. Diagnosis 1 Recurrent UTI (N39.0 ) Referral Organization [facility] jah Referring Provider First Name Gypsy Referring Provider Last Name Lisandro Referring Provider Specialty [facility] [employer] Referred [facility] Referred Provider Gerson Juárez Referred Address [address],[place],[address] Referred Provider Specialty Urology Referral Priority Routine [...] and content) DATE CREATED AUTHOR 09/17/2018 [facility] DATE CREATED AUTHOR AUTHOR'S ORGANIZ ATION 10/30/[address] [facility] DATE CREATED AUTHOR AUTHOR'S ORGANIZ ATION 05/31/2022 [facility] DATE CREATED AUTHOR AUTHOR'S ORGANIZ ATION 11/15/2022 [facility] DATE CREATED AUTHOR AUTHOR'S ORGANIZ ATION 05/07/2023 [facility] DATE CREATED AUTHOR AUTHOR'S ORGANIZ ATION 05/11/[address] [facility] REASON FOR VISIT (unrecogniz ed section [...] on alosetron, Patient was recently inpatient at [facility] and was diagnosed with gastric ulcerPRESCRIPTIONPATIENT [...] Member Role Status Dates Malathi Velázquez APRN MAMMOGRAPHY TECH-C Attending Provider Act judah Start: December 28, [...] 2023 Team Status: Inactive Member Role Status Valdemar Max MD Attending Provider Active Sta rt: February 18, 2023 End: February 18, 2023 Team Status: Inactive Member Role Status Valdemar Max MD Attending Provider, Referring Provider Active Start: February 25, 2023 End: February 25, 2023 Gypsy Mcmahon MD Primary Care Provider Active Start: February 25, 2023 End: February 25, 2023 Team Status: Inactive Member Role Status Valdemar Mcmahon MD Attending Provider Active St art: February 26, 2023 End: February 26, 2023 Team Status: Active Member Role Status Valdemar Mcmahon MD Primary Care Provide r, Attending Provider Active Start: April 06, 2023 Team Status: Inactive Member Role Status Valdemar Mcmahon MD Primary Care Provider Active Start: April 15, 2023 End: April 15, 2023 Jacinto Max MD Attending Provider Active Sta rt: April 15, 2023 End: April 15, 2023 Team Status: Active Member Role Status Valdemar Mcmahon MD Primary Care Provide r, Attending Provider Active Start: May 01, 2023 Team Status: Inactive Member Role Status Valdemar Mcmahon MD Primary Care Provider Active Start: May 05, 2023 End: May 05, 2023 Marvin Garcia DO Emergency Provider Active St art: May 05, 2023 End: May 05, 2023 Goals (unrecognized section and content) Goals [...] BE BASED ON THE PRIMARY CLINICAL RECORDS. [employer] provides no warranty or guarantee of the accuracy or completeness of information in this document.
[2023-06-02 00:07] LABS: Pancreatic Elastase, Fecal 126 (>200)
== END 2023-05-22 13:28 | disposition home or self-care (01) ==
LOC: LAB 13:29
PROVIDERS: PCP Family Medicine
DX: R19.7 Diarrhea, unspecified (principal)
CPT/HCPCS: 82656; 87045

== ENCOUNTER 2023-05-24 12:32 | Outpatient (OUT) | payer MEDICARE, BC, SELFPAY ==
[2023-05-25 15:09] LABS: Deamidated Gliadin Abs, IgA 4 units (0-19); Deamidated Gliadin Abs, IgG 2 units (0-19); Endomysial Antibody IgA Negative (Negative); Immunoglobulin A, Qn, Serum 64 mg/dL (64-422); t-Transglutaminase (tTG) IgA <2 U/mL (0-3); t-Transglutaminase (tTG) IgG <2 U/mL (0-5)
== END 2023-05-24 12:33 | disposition home or self-care (01) ==
LOC: LAB 12:32
PROVIDERS: PCP Family Medicine
DX: R19.7 Diarrhea, unspecified (principal)
CPT/HCPCS: 36415; 82784; 86231; 86258; 86364

== ENCOUNTER 2023-05-25 07:12 | Outpatient (REF) | payer MEDICARE, BC, SELFPAY ==
--- OUTSIDE RECORDS SUMMARY | 2023-05-25 07:15 | XMS_ITS | CCD ---
Author Organization [facility] Care Team Providers Care Practice Coordinator Name Role Phone Jian Giana Unavailable Hunter Brown Unavailable MD Gypsy Mcmahon Primary Care Provider MD Gypsy Mcmahon Attending Provider [phone] MD Hunter Brown Attending Provider Gypsy Mcmahon [...] MCMAHON, DR GYPSY Olvera Primary Care Unavailable [facility] TIFFANIE VALLES Consulting Unavailabl e [...] Unavailable HIGHLANDER, CLAU Shrestha Attending Unavailable HIGHLANDER, CALU Shrestha Admitting Unavailable MCMAHON, DR GYPSY Olvera [...] EMILIE Attending Unavailable CLAU SHAH Consulting Unavailable MIEKYWWAD, MCCORD H Admitting Unavailable ROSE ., MR [...] G Ellington Unavailable ELTAHAWY, EHAB Attending Unavailable [facility] Attending Unavailable Malathi Velázquez Unavailable [phone] MD Jacinto Max Attending Provider [phone] MD Jacinto Max Referring Provider MD Gypsy Mcmahon Primary Care Provider Jacinto Max Unavailable MD Jacinto Max Attending [...] Admitting Unavailable Gypsy Mcmahon Primary Care Unavailable DEBMALATHI RUBIO Attending Unavailable DEB, MALATHI Olvera Admitting Unavailable DEB, MALATHI Olvera Referring Unavailable Marvin KWON Attending Unavailable DEB, MALATHI Olvera Attending Unavailable DEB, MALATHI Olvera Attending Unavailable GYPSY MCMAHON Referring Unavailable DEB, MALATHI Olvera Attending Unavailable DEBMALATHI Attending Unavailable Allergies Allergy Classification Reported Allergen(s) Allergy Type Date of Onset Reaction(s) Facility (20 sources) Promethazine; 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: [promethazine] Drug Allergy 02-04-20 13 anaphylaxis, Anaphylaxis (disorder) [facility] (20 sources) histamines Drug allergy Unknown [facility] Other (6 sources) Histamine H2 Inhibitors; 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: [Histamine H2 Inhibitors] Allergy to substance 07-16-19 13 Unknown Reaction [facility] (20 sources) levoFLOXacin; 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: [levofloxacin] Drug Allergy 07-01-19 23 Tremor (finding) [facility] (1 source) diphenhydrAMINE Drug Allergy 04-20-19 [facility] Repository (1 source) ezetimibe Drug Allergy 04-20-19 [facility] Repository (1 source) Gemfibrozil Drug Allergy 04-20-19 [facility] Repository (2 sources) Levamisole; 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: [Phenergan] Drug Allergy 07-16-19 13 [facility] Rep[facility] (1 source) NSAIDs Drug allergy (disorder) 04-20-19 [facility] Rep[facility] (1 source) Nasal Decongestant Drug allergy (disorder) 04-20-19 [facility] Rep[facility] (1 source) Darvocet-N 100 Drug allergy (disorder) 04-20-19 [facility] Repository (10 sources) diphenhydrAMINE; 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: [diphenhydramine] Drug Allergy jumpy,, Unknown [facility] (13 sources) Penicillin; 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: [penicillin] Drug Allergy Eruption of skin (disorder) [facility] (1 source) Histamine; 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: [HISTAMINE] Drug Allergy 02-04-20 13 [facility] Repository (3 sources) Penicillins; 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: [Penicillins] Propensity to adverse reactions 02-25-19 Rash [facility] (1 source) Antihistamines Allergy to substance 02-26-19 [facility] (1 source) Promethazine Drug Allergy 12-07-19 [facility] Repository Medications Current Medications Medication Drug [...] capsule (1 source) Start: 04-15-2023 lactobacillus acidophilus [id number] unt oral tablet (2 sources) take 1 [...] Start: 05-14-2022 take 1 capsule by mo [facility] every twelve hours Macrobid 100 MG 1 [...] procedure, # 2 cap(s), Refills(s) 0, Pharmacy: [facility]/pharmacy #[id number], 178, cm, 05/19/22 13:31:00 EDT, [...] Active Start: 01-26-2023 take 1 capsule by [facility] every twenty-four hours Vancomycin HCl 250 [...] disease (20 sources) Atherosclerotic heart disease of [place] coronary artery without angina pectoris; 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: [Coronary [...] 02-04-2022 Chronic Other aftercare (1 source) 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; 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: [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] Onset: 03-24-2022 Episodic Other [...] and visceral atherosclerosis (14 sources) 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; 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: [Atherosclerosis of [place] arteries of left leg with ulceration of [...] Onset: 11-02-2021 Episodic Other aftercare (1 source) [facility] (current) 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; 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: [PENITENTIARY CURRENT USE OF ASPIRIN] Onset: 11-10-2021 Episodic [...] Range Facility [facility] 05-10-2023 Lab Reports [id number]#1.00TIFF Normal [facility] Lab Reports [id number]#1.00TIFF Normal [facility] Lab Reports [id number]#1.00TIFF Normal [facility] Lab Reportson 05-07-2023 Lab Reports [id number]#1.00TIFF Normal [facility] No Panel Informationon 04-30 Clostridium difficile (PCR)(LAB) Negative NEGATIVE [facility] No Panel Informationon 04-06 Clostridium difficile (PCR)(LAB) Positive Negative [facility] Comment on above: Toxigenic C difficil e: PositiveEpidemic Strain Bl/NAP1/027: Presumptive NegativePerformed at: [place] [id number] Director: Salomon Mcarthur PhD, Phone: [phone] IntraOperative Documentson 0 02-12-2023 IntraOperative Documents [id number]#1.00TIFF Normal [facility] Physician Orderon 02-12-2023 Physician Order [id number]#1.00TIFF Normal [facility] Physician Order [id number]#1.00TIFF Normal [facility] ED Note-Physicianon 02-05-20 ED Note-Physician [id number]#1.00TIFF Normal [facility] Lab Reportson 02-04-2023 Lab Reports [id number]#1.00TIFF Normal [facility] Lab Reports [id number]#1.00TIFF Normal [facility] Lab Reports [id number]#1.00TIFF Normal [facility] Consent for Treatmenton 01-09 Consent for Treatment [id number]#1.00TIFF Normal [facility] Retail - Clinical Noteon Retail - Clinical Note [id number]#1.00TIFF Normal [facility] Lab Reportson 01-28-2023 Lab Reports [id number]#1.00TIFF Normal [facility] Physician Orderon 01-28-2023 Physician Order [id number]#1.00TIFF [facility] Urology Office/Clinic Noteon 01-27-2023 Urology Office/Clinic [...] Urnls Dip Stick Auto w/o Microscopy POC 67458 2. 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 Case discussed w GI, Dr Brown's PUNCHER Katie. he agrees w above plan. 3. [...] the risks of side effects etc. Orders: 00311 Measure Post Void residual urine and/or bladder capacity by US- non-imaging Total time spent reviewing previous notes/results/external documents, preparing the chart, conducting the encounter with the patient and family, ordering tests/medications, and documenting the encounter was 40 minutes. Follow-up With When Contact Information MALATHI VIEIRA PA-C, URL [address] [place] [place] [address] [phone] Additional Instructions: f/u in Spring Patient Education Urinary Tract Infection, Adult, Qcpo-km-Xvaq Documentation recorded by the scribe Caprice Stratton accurately reflects the services(s) I performed and decisions made by me. Authenticated by Malathi Vieira PA-C on 01/27/2023 13:56:47. I, Caprice Stratton, personally scribed for Malathi Vieira PA-C on (more content not included)... Normal [facility] Comment on above: Result Comment: Elec tronically Signed By: MALATHI VIEIRA PA-C\.br\Date and Time Signed: 01/27/23 13:57 EST\.br\Electronically Co-Signed By: Caprice Stratton\.br\Date and Time Co-Signed: 01/26/23 16:09 EST Ambulatory Visit Summaryon 1 03-29-2022 Ambulatory Visit Summary DELICIA HSU :1935 Visit Date:01/26/2023 Ambulatory Visit Instructions Your Diagnosis Recurrent UTI Feeling of incomplete bladder emptying Colitis Tests Performed Urnls Dip Stick Auto w/o Microscopy POC 25664 Your Care Team Attending Physician - MALATHI [...] 2023 2:00 PM EDT With: DEB ZAZUETA, MALAHTI Olvera Where: [facility] Lab Reportson 01-26-2023 Lab Reports [id number]#1.00TIFF [facility] Patient Educationon 01-27-20 Patient Education Obstetrics [...] these instructions at home: Medicines ? Take njpd-huw-juxtkyv and prescription medicines only as told by [...] provider. Document Revised: 09/06/2020 Document Reviewed: 09/06/2020 [employer] Patient Education ? 2022 [employer]. [facility] Lab Reportson 01-25-2023 Lab Reports [id number]#1.00TIFF [facility] Lab Reports [id number]#1.00TIFF [facility] Lab Report[facility] 12-04-2022 Lab Reports [id number]#1.00TIFF [facility] Physician Orderon 12-01-2022 Physician Order [id number]#1.00TIFF [facility] Office Visiton 11-11-2022 Follow-up visit [id number] Delicia Hsu Jean Carlos 1935 F Date Provider Department Center 11/11/2022 KulwinderJAKE BARRY CARD [facility] Family History Problem Relation Age of Onset Aneurysm Mother Heart attack Father Family Status - Relation Status Age at Mother Father Level of Service:90894 [place] OFFICE/OUTPATIENT ESTABLISHED LOW MDM 20-29 MIN Normal [facility] Lab Reportson 09-25-2022 Lab Reports [id number]#1.00CD:127 Normal [facility] Lab Reports [id number]#1.00CD:127 [facility] Physician Orderon 09-23-2022 Physician Order [id number]#1.00CD:127 [facility] Screenson 09-23-2022 Screens [id number]#1.00CD:127 [facility] Ambulatory Visit Summaryon 0 09-22-2022 Ambulatory [...] MALATHI VIEIRA PA-C Where: [facility] Patient Educationon 09-23-19 Patient Education [...] these instructions at home: Medicines ? Take hmtb-mzw-lepoirf and prescription medicines only as told by [...] provider. Document Revised: 09/06/2020 Document Reviewed: 09/06/2020 [employer] Patient Education ? 2022 [employer] [facility] Urology Office/Clinic Noteon 09-22-2022 Urology Office/Clinic [...] symptoms not resolved. C&S this morning at [facility] ( not finalized) UTI symptoms Memory issues, [...] resolved per daughter. C&S this morning at [facility] (not finalized) - will call pt w/ [...] up having to send a U.Cx to [facility] so we can review the results. [...] When Contact Information MALATHI VIEIRA PA-C, URL [address] [place] [address] Additional Instructions: Patient Education Urinary Tract Infection, Adult, Iwda-nu-Lhmf IJazlyn, personally scribed for Malathi Vieira PA-C [...] 3 mg (more content not included)... Normal [facility] Comment on above: Result Comment: Elec tronically Signed By: MALATHI VIEIRA PA-C\.br\Date and Time Signed: 09/22/22 16:16 EDT\.br\Electronically Co-Signed By: Jazlyn Lucero\.br\Date and Time Co-Signed: 09/22/22 15:38 EDT [facility] 07-02-2022 Lab Reports [id number]#1.00CD:127 Normal [facility] Office Visiton 06-30-2022 Follow-up visit [id number] Delicia Hsu 1935 F Date Provider Department Center 06/30/2022 Kulwinder-JAKE BARRY CARD [facility] Family History Problem Relation Age of Onset Aneurysm Mother Heart attack Father Family Status - Relation Status Age at Mother Father Level of Service:51419 [place] OFFICE/OUTPATIENT NEW MODERATE MDM 45-59 MINUTES Normal [facility] Consent for Procedure/Surger yon 06-10-2022 Consent for Procedure/Surgery [id number]#1.00CD:127 Normal [facility] Patient Educationon 06-10-19 Patient Education Obstetrics and [...] these instructions at home: Medicines ? Take mytj-rwm-mrwiyfe and prescription medicines only as told by [...] provider. Document Revised: 09/06/2020 Document Reviewed: 09/06/2020 [employer] Patient Education ? 2022 [employer]. [facility] Urology Office/Clinic Noteon 06-09-2022 Urology Office/Clinic [...] EDT [facility] [address] [place] [address]- [phone] Additional Instructions: Patient Education Urinary Tract Infection, Adult, Uopm-wr-Ssmk Rajani Aviles, personally scribed for Dr. Kwon on 06/09/2022 14:30:17. . Documentation recorded by the rafaelibRajani olvera, accurately reflects the services(s) I performed and decisions made by me. Problem List/Past Medical History Ongoing Colitis Feeling of incomplete bladder emptying Hyperlip (more content not included)... Normal [facility] Comment on above: Result Comment: Elec tronically Signed By: Marvin KWON MD\.br\Date and Time Signed: 06/09/22 14:35 EDT\.br\Electronically Co-Signed By: Rajani Locke MA\.br\Date and Time Co-Signed: 06/09/22 14:30 EDT [facility] 06-02-2022 Lab Reports [id number]#1.00CD:127 Normal [facility] RAD - CT Reporton 06-02-2022 RAD - CT Report [id number]#1.00CD:127 Normal [facility] CT ABD/PELVIS WO CONon 05-27 CT ABD/PELVIS [...] NUÑEZ Date: 2022-05-27 10:34 Normal [facility] Physician Referralon 023 Physician Referral [id number]#1.00CD:127 Normal [facility] Ambulatory Visit Summaryon 0 05-19-2022 Ambulatory Visit Summary DELICIA HSU :1935 Visit Date:05/19/2022 Ambulatory Visit Instructions Your Diagnosis Recurrent UTI Feeling of incomplete bladder emptying Colitis Tests Performed Urnls Dip Stick Auto w/o Microscopy POC [address] CT Abdomen/Pelvis w/ Contrast -- Results Pending [...] VIEIRA PA-C, URL When: Where: [address] [place] [address] Medications What How Much When Instructions New [...] Urnls Dip Stick Auto w/o Microscopy POC 94115 (05/19/2022) Bilirubin Urine Dipstick - Negative Blood Urine Dipstick - Negative Glucose Urine Dipstick - Negative Ketones Urine Dipstick - Trace - 5 mg/dl Leukocytes Urine Dipstick - 1+ Small Nitrite Urine Dipstick - Negative Protein Urine Dipstick - Negative Specific [place] Urine Dipstick - 1.020 Urine Appearance Urine [...] a sper (more content not included)... Normal [facility] Patient Educationon 05-20-19 Patient Education Obstetrics and [...] this condition includes: ? Antibiotic medicine. ? Pcqs-lxb-udxxiak medicines to treat discomfort. ? Drinking enough [...] these instructions at home: Medicines ? Take rdeg-lwp-tanvbem and prescription medicines only as told by [...] This in (more content not included)... Normal [facility] Patient Letter FTMCon 2022 Patient Letter [facility] (Inserted Image. Delaney ble to display) May 19, 2022 Dear Ms Hsu, My apologies that I forgot to write this down for you at your visit today. Here are the crvf-ksw-lxkhrux supplements I would recommend for UTI prevention: probiotics D-mannose cranberry extract You should be able to find combination products that have all 3 ingredients. Provider Signature: Malathi Vieira PA-C Physician Content Curator [facility] [address] [place] [address] Normal [facility] CULTURE URINEon 05-14-2022 CULTURE URINE Culture Observations [...] Trimethoprim/Sulfamethoxazol e <=20 S F Normal [facility] Comment on above: Performed By: #### U RCX #### [facility] Laboratory [address] [place] [address] Dr. Anthony Bonilla UA RANDOMon 05-11-2022 Bilirubin Ql (U) Negative Normal NEGATIVE [facility] Comment on above: Performed By: #### U RCX #### [facility] [address] [place] [address] Dr. Anthony Bonilla Clarity (U) SL CLOUDY Abnormal CLEAR [facility] Comment on above: Performed By: #### U RCX #### [facility] [address] [place] [address] Dr. Anthony Bonilla Color (U) LT. YELLOW Normal YELLOW [facility] Comment on above: Performed By: #### U RCX #### [facility] [address] [place] [address] Dr. Anthony Bonilla Glucose Ql (U) Negative Normal NEGATIVE [facility] Comment on above: Performed By: #### U RCX #### [facility] [address] [place] [address] Dr. Anthony Bonilla Hemoglobin Ql (U) Negative Normal NEGATIVE [facility] Comment on above: Performed By: #### U RCX #### [facility] [address] [place] [address] Dr. Anthony Bonilla Ketones Ql (U) Negative Normal NEGATIVE [facility] Comment on above: Performed By: #### U RCX #### [facility] [address] [place] [address] Dr. Anthony Bonilla LEUKOCYTES MODERATE Abnormal NEGATIVE [facility] Comment on above: Performed By: #### U RCX #### [facility] [address] [place] [address] Dr. Anthony Bonilla Nitrite Ql (U) Negative Normal NEGATIVE [facility] Comment on above: Performed By: #### U RCX #### [facility] [address] [place] [address] Dr. Anthony Bonilla pH (U) 5.5 [pH] Normal 5-9 [facility] Comment on above: Performed By: #### U RCX #### [facility] [address] [address] [address] Anthony Bonilla SPEC GRAVITY 1.020 Normal 1.005-<=1. 025 [facility] Comment on above: Performed By: #### U RCX #### [facility] [address] [place] [address] Dr. Anthony Bonilla UA PROTEIN Negative Normal NEGATIVE/ TRACE [facility] Comment on above: Performed By: #### U RCX #### [facility] [address] [address] [address] Anthony Bonilla Urobilinogen Qn (U) 0.2 {Gen'U}/dL Normal 0.2 - 1. 0 [facility] Comment on above: Performed By: #### U RCX #### [facility] [address] [place] [address] Dr. Anthony Bonilla CULTURE URINEon 05-01-2022 CULTURE [...] e <=20 S F Normal [facility] Comment on above: Performed By: #### U RCX #### [facility] [address] [place] [address] Dr. Anthony Bonilla CULTURE URINEon 04-16-2022 CULTURE [...] Nitrofurantoin 64 I F Normal [facility] Comment on above: Performed By: #### U RCX #### [facility] [address] [place] [address] Dr. Anthony Bonilla UA RANDOMon 04-14-2022 Bilirubin Ql (U) Negative Normal NEGATIVE [facility] Comment on above: Performed By: #### U RCX #### [facility] [address] [place] [address] Dr. Anthony Bonilla Clarity (U) CLEAR Normal CLEAR [facility] Comment on above: Performed By: #### U RCX #### [facility] [address] [place] [address] Dr. Anthony Bonilla Color (U) LT. YELLOW Normal YELLOW [facility] Comment on above: Performed By: #### U RCX #### [facility] [address] [place] [address] Dr. Anthony Bonilla Glucose Ql (U) Negative Normal NEGATIVE [facility] Comment on above: Performed By: #### U RCX #### [facility] [address] [place] [address] Dr. Anthony Bonilla Hemoglobin Ql (U) Negative Normal NEGATIVE [facility] Comment on above: Performed By: #### U RCX #### [facility] [address] [place] [address] Dr. Anthony Bonilla Ketones Ql (U) Negative Normal NEGATIVE [facility] Comment on above: Performed By: #### U RCX #### [facility] [address] [place] [address] Dr. Anthony Bonilla LEUKOCYTES MODERATE Abnormal NEGATIVE [facility] Comment on above: Performed By: #### U RCX #### [facility] [address] [address] [address] Anthony Bonilla Nitrite Ql (U) Negative Normal NEGATIVE [facility] Comment on above: Performed By: #### U RCX #### [facility] [address] [place] [address] Dr. Anthony Bonilla pH (U) 5.5 [pH] Normal 5-9 [facility] Comment on above: Performed By: #### U RCX #### [facility] [address] [place] [address] Dr. Anthony Bonilla SPEC GRAVITY 1.020 Normal 1.005-<=1. 025 [facility] Comment on above: Performed By: #### U RCX #### [facility] [address] [place] [address] Dr. Anthony Bonilla UA PROTEIN Negative Normal NEGATIVE/ TRACE [facility] Comment on above: Performed By: #### U RCX #### [facility] [address] [place] [address] Dr. Anthony Bonilla Urobilinogen Qn (U) 0.2 {Gen'U}/dL Normal 0.2 - 1. 0 [facility] Comment on above: Performed By: #### U RCX #### [facility] [address] [place] [address] Dr. Anthony Bonilla Urinalysis - DIPSTICKon 03-12 Appearance (U) clear [employer] Other Bilirubin Ql (U) small [employer] Other Color (U) dark yellow [employer] Other Glucose Ql (U) Negative [employer] Other Hemoglobin Ql (U) Negative [employer] Other Ketones Ql (U) trace [employer] Other Leukocyte esterase Test strip Ql (U) small [employer] Other Nitrite Ql (U) Negative [employer] Other pH (U) 5.0 [pH] [employer] Other Protein Ql (U) Negative [employer] Other Specific gravity (U) [Rel density] 1.015 [employer] Other Urobilinogen (U) [Mass/Vol] 0.2 mg/dL [employer] Other Urinalysis - DIPSTICK [employer] Other Urine Cultureon 03-30-2022 Urine Culture 10,000 [employer] Other Bacteria identified Cx Nom (U) [employer] Other CULTURE URINEon 03-23-2022 CULTURE URINE Isolate 1 Pseudomonas aeruginosa >100,000 cfu/mL of ORGANISM 1 Pseudomonas aeruginosa ANTIBIOTIC M.I.C RX STATUS Piperacillin/Tazobactam 8 S F Ceftazidime 4 S F Imipenem 1 S F Amikacin <=2 S F Gentamicin <=1 S F Tobramycin <=1 S F Ciprofloxacin <=0.25 S F Levofloxacin 0.5 S F Normal [facility] Comment on above: Performed By: #### U RCX #### [facility] [address] [address] [address] Anthony Bonilla CARDIAC DARWIN ADMITon 023 CK [Catalytic activity/Vol] 137 U/L Normal 26-192 [facility] Comment on above: Performed By: #### U RCX #### [facility] [address] [address] [address] Anthony Bonilla CK.MB [Mass/Vol] 1.05 ng/mL Normal <=3.60 [facility] Comment on above: Performed By: #### U RCX #### [facility] [address] [place] [address] Dr. Anthony Bonilla HSTROP 17.6 pg/mL Normal 4.0-51.3 [facility] Comment on above: Result Comment: CUT- OFF POINTS HAVE BEEN ESTABLISHED BASED ON THE FOURTH UNIVERSAL DEFINITIONS OF MYOCARDIAL INFARCTION. THE UPPER REFERENCE LIMIT (URL) OF TROPONIN, DEFINED THE 99TH PERCENTILE OF cTnI DISTRIBUTION IN A REFERENCE POPULATION, HAS BEEN CONFIRMED THE DECISION THRESHOLD FOR [place] DIAGNOSIS. Performed By: #### U RCX #### [facility] [address] [place] [address] Dr. Anthony Bonilla CANDIDA 72 ng/mL Normal 9-82 [facility] Comment on above: Performed By: #### U RCX #### [facility] [address] [place] [address] Dr. Anthony Bonilla CBC AUTO DIFFon 03-20-2022 BASO # 0.0 103/ul Normal 0.0-0.1 [facility] Comment on above: Performed By: #### C BC #### [facility] [address] [place] [address] Dr. Anthony Bonilla Basophils/100 WBC (Bld) 0.3 % Normal 0.2-2.0 [facility] Comment on above: Performed By: #### C BC #### [facility] [address] [place] [address] Dr. Anthony Bonilla EO # 0.0 103/ul Normal 0.0-0.7 [facility] Comment on above: Performed By: #### C BC #### [facility] [address] [place] [address] Dr. Anthony Bonilla Eosinophils/100 WBC (Bld) 0.1 % Critically low 0.9-7.0 [facility] Comment on above: Performed By: #### C BC #### [facility] [address] [place] [address] Dr. Anthony Bonilla Erythrocyte distribution width (RBC) [Ratio] 15.9 % Critically high 11.0-15.0 [facility] Comment on above: Performed By: #### C BC #### [facility] [address] [address] [address] Anthony Bonilla Hematocrit (Bld) [Volume fraction] 33.6 % Critically low 36.0-48.0 [facility] Comment on above: Performed By: #### C BC #### [facility] [address] [place] [address] Dr. Anthony Bonilla Hemoglobin (Bld) [Mass/Vol] 11.2 g/dL Critically low 12.0-16.0 [facility] Comment on above: Performed By: #### C BC #### [facility] [address] [place] [address] Dr. Anthony Bonilla IG # 0.04 10e3/ul Critically high 0.00-0.03 [facility] Comment on above: Performed By: #### C BC #### [facility] [address] [place] [address] Dr. Anthony Bonilla IG % 0.3 % Normal 0.0-0.5 [facility] Comment on above: Performed By: #### C BC #### [facility] [address] [place] [address] Dr. Anthony Bonilla LYMPH # 0.8 103/ul Critically low 1.2-3.8 [facility] Comment on above: Performed By: #### C BC #### [facility] [address] [place] [address] Dr. Anthony Bonilla Lymphocytes/100 WBC (Bld) 6.4 % Critically low 20.5-60.0 [facility] Comment on above: Performed By: #### C BC #### [facility] [address] [place] [address] Dr. Anthony Bonilla MANUAL DIFF REQ NO Normal [facility] Comment on above: Performed By: #### C BC #### [facility] [address] [place] [address] Dr. Anthony Bonilla MCH (RBC) [Entitic mass] 28.9 pg Normal 26.7-34.0 [facility] Comment on above: Performed By: #### C BC #### [facility] [address] [address] [address] Anthony Bonilla MCHC (RBC) [Mass/Vol] 33.3 g/dL Normal 29.9-35.2 [facility] Comment on above: Performed By: #### C BC #### [facility] [address] [address] [address] Anthony Bonilla MCV (RBC) [Entitic vol] 86.8 fL Normal 81.0-99.0 [facility] Comment on above: Performed By: #### C BC #### [facility] [address] [address] [address] Anthony Bonilla MONO # 1.1 103/ul Critically high 0.3-0.8 [facility] Comment on above: Performed By: #### C BC #### [facility] [address] [address] [address] Anthony Bonilla Monocytes/100 WBC (Bld) 8.3 % Normal 1.7-12.0 [facility] Comment on above: Performed By: #### C BC #### [facility] [address] [address] [address] Anthony Bonilla NEUT # 11.2 103/ul Critically high 1.4-6.5 [facility] Comment on above: Performed By: #### C BC #### [facility] [address] [address] [address] Anthony Bonilla Neutrophils/100 WBC (Bld) 84.6 % Critically high 43.0-75.0 [facility] Comment on above: Performed By: #### C BC #### [facility] [address] [address] [address] Anthony Bonilla Platelet mean volume (Bld) [Entitic vol] 9.7 fL Normal 9.5-13.5 [facility] Comment on above: Performed By: #### C BC #### [facility] [address] [address] [address] Anthony Bonilla PLT 274 103/ul Normal 150-450 [facility] Comment on above: Performed By: #### C BC #### [facility] [address], [place] [address] Dr. Anthony Bonilla RBC 3.87 106/ul Critically low 4.20-5.[address] [facility] Comment on above: Performed By: #### C BC #### [facility] [address], [place] [address] Dr. Anthony Bonilla WBC 13.2 103/ul Critically high 4.0-11.[address] [facility] Comment on above: Performed By: #### C BC #### [facility] [address], [place] [address] [address] HEAD WO CONon [...] CLAU SHAH Date: 2022-03-20 20:30 Normal [facility] URINE PROFILEon Bilirubin Ql (U) Negative Normal NEGATIVE [facility] Comment on above: Performed By: #### C BC #### [facility] [address] [place] [address] Dr. Anthony Bonilla Clarity (U) CLEAR Normal CLEAR [facility] Comment on above: Performed By: #### C BC #### [facility] [address] [address] [address] Anthony Bonilla Color (U) LT. YELLOW Normal YELLOW [facility] Comment on above: Performed By: #### C BC #### [facility] [address] [place] [address] Dr. Anthony Bonilla ERUCARMINA A micrscopic examina tion will be performed if indicated. Normal [facility] Comment on above: Performed By: #### C BC #### [facility] [address] [place] [address] Dr. Anthony Bonilla Glucose Ql (U) Negative Normal NEGATIVE [facility] Comment on above: Performed By: #### C BC #### [facility] [address] [place] [address] Dr. Anthony Bonilla Hemoglobin Ql (U) LARGE Abnormal NEGATIVE [facility] Comment on above: Performed By: #### C BC #### [facility] [address] [place] [address] Dr. Anthony Bonilla Ketones Ql (U) Negative Normal NEGATIVE [facility] Comment on above: Performed By: #### C BC #### [facility] [address] [place] [address] Dr. Anthony Bonilla LEUKOCYTES SMALL Abnormal NEGATIVE [facility] Comment on above: Performed By: #### C BC #### [facility] [address] [place] [address] Dr. Anthony Bonilla Nitrite Ql (U) Positive Abnormal NEGATIVE [facility] Comment on above: Performed By: #### C BC #### [facility] [address] [place] [address] Dr. Anthony Bonilla pH (U) 7.0 [pH] Normal 5-9 [facility] Comment on above: Performed By: #### C BC #### [facility] [address] [place] [address] Dr. Anthony Bonilla Protein (U) [Mass/Vol] 30 mg/dL Abnormal NEGATIVE/ TRACE [facility] Comment on above: Performed By: #### C BC #### [facility] [address] [place] [address] Dr. Anthony Bonilla SPEC GRAVITY 1.015 Normal 1.005-<=1. 025 [facility] Comment on above: Performed By: #### C BC #### [facility] [address] [place] [address] Dr. Anthony Bonilla UR MICRO IND INDICATED Normal [facility] Comment on above: Performed By: #### C BC #### [facility] [address] [place] [address] Dr. Anthony Bonilla Urobilinogen Qn (U) 1.0 {Gen'U}/dL Normal 0.2 - 1. 0 [facility] Comment on above: Performed By: #### C BC #### [facility] [address] [place] [address] Dr. Anthony Bonilla PROF 14(COMP METB)on 023 Albumin [Mass/Vol] 3.4 g/dL Normal 3.4-5.0 [facility] Comment on above: Performed By: #### U RCX #### [facility] [address] [place] [address] Dr. Anthony Bonilla Albumin/Globulin [Mass ratio] 1.2 {ratio} Normal [facility] Comment on above: Performed By: #### U RCX #### [facility] [address] [place] [address] Dr. Anthony Bonilla ALP [Catalytic activity/Vol] 26 U/L Critically low 46-116 [facility] Comment on above: Performed By: #### U RCX #### [facility] [address] [place] [address] Dr. Anthony Bonilla ALT [Catalytic activity/Vol] 21 U/L Normal 14-59 [facility] Comment on above: Performed By: #### U RCX #### [facility] [address] [place] [address] Dr. Anthony Bonilla Anion gap [Moles/Vol] 13.7 mmol/L Normal [facility] Comment on above: Performed By: #### U RCX #### [facility] [address] [address] [address] Anthony Bonilla AST [Catalytic activity/Vol] 20 U/L Normal 15-37 [facility] Comment on above: Performed By: #### U RCX #### [facility] [address] [address] [address] Anthony Bonilla Bilirubin [Mass/Vol] 1.2 mg/dL Critically high 0.2-1.0 [facility] Comment on above: Performed By: #### U RCX #### [facility] [address] [place] [address] Dr. Anthony Bonilla Calcium [Mass/Vol] 9.4 mg/dL Normal 8.5-10.1 [facility] Comment on above: Performed By: #### U RCX #### [facility] [address] [address] [address] Anthony Bonilla Chloride [Moles/Vol] 99 mmol/L Normal 98-107 [facility] Comment on above: Performed By: #### U RCX #### [facility] [address] [place] [address] Dr. Anthony Bonilla CO2 [Moles/Vol] 29.1 mmol/L Normal 21.0-32.0 [facility] Comment on above: Performed By: #### U RCX #### [facility] [address] [address] [address] Anthony Bonilla Creatinine [Mass/Vol] 1.02 mg/dL Normal 0.55-1.02 [facility] Comment on above: Performed By: #### U RCX #### [facility] [address] [place] [address] Dr. Anthony Bonilla EGFR-AF UGANDAN >60 Normal >=[address] [facility] Comment on above: Performed By: #### U RCX #### [facility] [address] [address] [address] Anthony Bonilla EGFR-NON AF UGANDAN 52 mL/min/1.73m2 Critically low >=60 [facility] Comment on above: Performed By: #### U RCX #### [facility] [address] [place] [address] Dr. Anthony Bonilla Globulin (S) [Mass/Vol] 2.9 g/dL Normal [facility] Comment on above: Performed By: #### U RCX #### [facility] [address] [place] [address] Dr. Anthony Bonilla Glucose [Mass/Vol] 98 mg/dL Normal 74-106 [facility] Comment on above: Performed By: #### U RCX #### [facility] [address] [place] [address] Dr. Anthony Bonilla Potassium [Moles/Vol] 3.8 mmol/L Normal 3.5-5.1 [facility] Comment on above: Performed By: #### U RCX #### [facility] [address] [place] [address] Dr. Anthony Bonilla Protein [Mass/Vol] 6.3 g/dL Critically low 6.4-8.2 [facility] Comment on above: Performed By: #### U RCX #### [facility] [address] [place] [address] Dr. Anthony Bonilla Sodium [Moles/Vol] 138 mmol/L Normal 136-145 [facility] Comment on above: Performed By: #### U RCX #### [facility] [address] [place] [address] Dr. Anthony Bonilla Urea nitrogen [Mass/Vol] 16.0 mg/dL Normal 7.0-18.0 [facility] Comment on above: Performed By: #### U RCX #### [facility] [address] [place] [address] Dr. Anthony Bonilla Urea nitrogen/Creatinine [Mass ratio] 15.7 mg/mg Normal [facility] Comment on above: Performed By: #### U RCX #### [facility] [address] [place] [address] Dr. Anthony Bonilla URINE MICROSCOPIC ONLYon BACTERIA LARGE Abnormal NONE SEEN [facility] Comment on above: Performed By: #### C BC #### [facility] [address] [place] [address] Dr. Anthony Bonilla Bacteria identified Cx Nom (U) INDICATED Normal [facility] Comment on above: Performed By: #### C BC #### [facility] [address] [place] [address] Dr. Anthony Bonilla CAST NONE SEEN Normal NONE SEEN [facility] Comment on above: Performed By: #### C BC #### [facility] [address] [place] [address] Dr. Anthony Bonilla Crystals LM Nom (Urine sed) NONE SEEN Normal NONE SEEN [facility] Comment on above: Performed By: #### C BC #### [facility] [address] [place] [address] Dr. Anthony Bonilla Epithelial cells LM Ql (Urine sed) FEW Abnormal NONE SEEN /RARE [facility] Comment on above: Performed By: #### C BC #### [facility] [address] [place] [address] Dr. Anthony Bonilla MUCOUS NONE SEEN Normal NONE SEEN [facility] Comment on above: Performed By: #### C BC #### [facility] [address] [place] [address] Dr. Anthony Bonilla RBC 10-20 Abnormal 0-2 [facility] Comment on above: Performed By: #### C BC #### [facility] [address] [place] [address] Dr. Anthony Bonilla WBC 50-75 Abnormal NONE SEEN [facility] Comment on above: Performed By: #### C BC #### [facility] [address] [place] [address] Dr. Anthony Bonilla CALPROTECTIN, FECALon 2022 Calprotectin, Fecal 416 ug/g Critically high 0-120 [facility] Comment on above: Result Comment: Conc entration Interpretation Follow-Up <16 - 50 ug/g Normal None >50 -120 ug/g Borderline Re-evaluate in 4-6 weeks >120 ug/g Abnormal Repeat as clinically indicated Performed By: #### U RCX #### [facility] [address] [place] [address] Dr. Anthony Bonilla QUANTIFERON TB GOLD PLUSon 0 02-19-2022 QuantiFERON Criteria Comment Normal [facility] Comment on above: Result Comment: Butch [...] test. Performed By: #### U RCX #### [facility] [address] [place] [address] Dr. Anthony Bonilla QuantiFERON Incubation Incubation performed. Normal [facility] Comment on above: Performed By: #### U RCX #### [facility] [address] [place] [address] Dr. Anthony Bonilla QuantiFERON Mitogen Value >10.00 Normal [facility] Comment on above: Performed By: #### U RCX #### [facility] [address] [place] [address] Dr. Anthony Bonilla QuantiFERON Nil Value 0.07 IU/mL Normal [facility] Comment on above: Performed By: #### U RCX #### [facility] [address] [place] [address] Dr. Anthony Bonilla QuantiFERON TB1 Ag Value 0.08 IU/mL Normal [facility] Comment on above: Performed By: #### U RCX #### [facility] [address] [place] [address] Dr. Anthony Bonilla QuantiFERON TB2 Ag Value 0.07 IU/mL Normal [facility] Comment on above: Performed By: #### U RCX #### [facility] [address] [place] [address] Dr. Anthony Bonilla QuantiFERON-TB Gold Plus Negative Normal Negative [facility] Comment on above: Result Comment: No r esponse to M tuberculosis antigens detected. Infection with M tuberculosis is unlikely, but high risk individuals should be considered for additional testing (ATS/IDSA/CDC Clinical Practice Guidelines, 2017). The reference range is an Antigen minus Nil result of <0.35 IU/mL. Chemiluminescence immunoassay methodology Performed By: #### U RCX #### [facility] [address] [place] [address] Dr. Anthony Bonilla HEP B SURFACE ANTIGEN SCREEN on 02-18-2022 HBsAg Screen Negative Normal Negative [facility] Comment on above: Performed By: #### U RCX #### [facility] [address] [place] [address] Dr. Antohny Bonilla HEPATITIS B CORE, IgMon 02-08 Hep B Core Ab, IgM Negative Normal Negative [facility] Comment on above: Performed By: #### U RCX #### [facility] [address] [place] [address] Dr. Anthony Bonilla HEPATITIS B SURFACE ANTIBODY , QUANTon 02-18-2022 Hepatitis B Surf AB Quant <3.1 Critically low Immunity>9 .9 [facility] Comment on above: Result Comment: Stat us of Immunity Anti-HBs Level Inconsistent with Immunity 0.0 - 9.9 Consistent with Immunity >9.9 Performed By: #### C BC #### [facility] [address] [place] [address] Dr. Anthony Bonilla CBC AUTO DIFFon 02-17-2022 BASO # 0.0 103/ul Normal 0.0-0.1 [facility] Comment on above: Performed By: #### U RCX #### [facility] [address] [place] [address] Dr. Anthony Bonilla Basophils/100 WBC (Bld) 0.4 % Normal 0.2-2.0 [facility] Comment on above: Performed By: #### U RCX #### [facility] [address] [place] [address] Dr. Anthony Bonilla EO # 0.0 103/ul Normal 0.0-0.7 [facility] Comment on above: Performed By: #### U RCX #### [facility] [address] [address] [address] Anthnoy Bonilla Eosinophils/100 WBC (Bld) 0.5 % Critically low 0.9-7.0 [facility] Comment on above: Performed By: #### U RCX #### [facility] [address] [place] [address] Dr. Anthony Bonilla Erythrocyte distribution width (RBC) [Ratio] 14.7 % Normal 11.0-15.0 [facility] Comment on above: Performed By: #### U RCX #### [facility] [address] [place] [address] Dr. Anthony Bonilla Hematocrit (Bld) [Volume fraction] 33.2 % Critically low 36.0-48.0 [facility] Comment on above: Performed By: #### U RCX #### [facility] [address] [place] [address] Dr. Anthony Bonilla Hemoglobin (Bld) [Mass/Vol] 11.0 g/dL Critically low 12.0-16.0 [facility] Comment on above: Performed By: #### U RCX #### [facility] [address] [place] [address] Dr. Anthony Bonilla IG # 0.02 10e3/ul Normal 0.00-0.03 [facility] Comment on above: Performed By: #### U RCX #### [facility] [address] [place] [address] Dr. Anthony Bonilla IG % 0.2 % Normal 0.0-0.5 [facility] Comment on above: Performed By: #### U RCX #### [facility] [address] [place] [address] Dr. Anthony Bonilla LYMPH # 1.3 103/ul Normal 1.2-3.8 [facility] Comment on above: Performed By: #### U RCX #### [facility] [address] [place] [address] Dr. Anthony Bonilla Lymphocytes/100 WBC (Bld) 14.8 % Critically low 20.5-60.0 [facility] Comment on above: Performed By: #### U RCX #### [facility] [address] [place] [address] Dr. Anthony Bonilla MANUAL DIFF REQ NO Normal [facility] Comment on above: Performed By: #### U RCX #### [facility] [address] [place] [address] Dr. Anthony Bonilla MCH (RBC) [Entitic mass] 29.0 pg Normal 26.7-34.0 [facility] Comment on above: Performed By: #### U RCX #### [facility] [address] [place] [address] Dr. Anthony Bonilla MCHC (RBC) [Mass/Vol] 33.1 g/dL Normal 29.9-35.2 [facility] [facility] Comment on above: Performed By: #### U RCX #### [facility] [address] [place] [address] Dr. Anthony Bonilla MCV (RBC) [Entitic vol] 87.6 fL Normal 81.0-99.0 [facility] Comment on above: Performed By: #### U RCX #### [facility] [address] [place] [address] Dr. Anthony Bonilla MONO # 0.8 103/ul Normal 0.3-0.8 [facility] Comment on above: Performed By: #### U RCX #### [facility] [address] [place] [address] Dr. Anthony Bonilla Monocytes/100 WBC (Bld) 9.6 % Normal 1.7-12.0 [facility] Comment on above: Performed By: #### U RCX #### [facility] [address] [place] [address] Dr. Anthony Bonilla NEUT # 6.3 103/ul Normal 1.4-6.5 [facility] Comment on above: Performed By: #### U RCX #### [facility] [address] [place] [address] Dr. Anthony Bonilla Neutrophils/100 WBC (Bld) 74.5 % Normal 43.0-75.0 [facility] Comment on above: Performed By: #### U RCX #### [facility] [address] [place] [address] Dr. Anthony Bonilla Platelet mean volume (Bld) [Entitic vol] 9.8 fL Normal 9.5-13.5 [facility] Comment on above: Performed By: #### U RCX #### [facility] [address] [place] [address] Dr. Anthony Bonilla PLT 318 103/ul Normal 150-450 [facility] Comment on above: Performed By: #### U RCX #### [facility] [address] [address] [address] Anthony Bonilla RBC 3.79 106/ul Critically low 4.20-5.40 [facility] Comment on above: Performed By: #### U RCX #### [facility] [address] [place] [address] Dr. Anthony Bonilla WBC 8.5 103/ul Normal 4.0-11.0 [facility] Comment on above: Performed By: #### U RCX #### [facility] [address] [place] [address] Dr. Anthony Bonilla PROF 14(COMP METB)on 023 Albumin [Mass/Vol] 3.6 g/dL Normal 3.4-5.0 [facility] Comment on above: Performed By: #### U RCX #### [facility] [address] [place] [address] Dr. Anthony Bonilla Albumin/Globulin [Mass ratio] 1.2 {ratio} Normal [facility] Comment on above: Performed By: #### U RCX #### [facility] [address] [place] [address] Dr. Anthony Bonilla ALP [Catalytic activity/Vol] 27 U/L Critically low 46-116 [facility] Comment on above: Performed By: #### U RCX #### [facility] [address] [place] [address] Dr. Anthony Bonilla ALT [Catalytic activity/Vol] 21 U/L Normal 14-59 [facility] Comment on above: Performed By: #### U RCX #### [facility] [address] [address] [address] Anthony Bonilla Anion gap [Moles/Vol] 13.5 mmol/L Normal [facility] Comment on above: Performed By: #### U RCX #### [facility] [address] [address] [address] Anthony Bonilla AST [Catalytic activity/Vol] 19 U/L Normal 15-37 [facility] Comment on above: Performed By: #### U RCX #### [facility] [address] [address] [address] Anthony Bonilla Bilirubin [Mass/Vol] 0.6 mg/dL Normal 0.2-1.0 [facility] Comment on above: Performed By: #### U RCX #### [facility] [address] [address] [address] Anthony Bonilla Calcium [Mass/Vol] 9.2 mg/dL Normal 8.5-10.1 [facility] Comment on above: Performed By: #### U RCX #### [facility] [address] [address] [address] Anthony Bonilla Chloride [Moles/Vol] 104 mmol/L Normal 98-107 [facility] Comment on above: Performed By: #### U RCX #### [facility] [address] [address] [address] Anthony Bonilla CO2 [Moles/Vol] 28.9 mmol/L Normal 21.0-32.0 [facility] Comment on above: Performed By: #### U RCX #### [facility] [address] [address] [address] Anthony Bonilla Creatinine [Mass/Vol] 1.21 mg/dL Critically high 0.55-1.02 [facility] Comment on above: Performed By: #### U RCX #### [facility] [address] [address] [address] Anthony Bonilla EGFR-AF UGANDAN 51 mL/min/1.73m2 Critically low >=60 [facility] Comment on above: Performed By: #### U RCX #### [facility] [address] [address] [address] Anthony Bonilla EGFR-NON AF UGANDAN 42 mL/min/1.73m2 Critically low >=60 [facility] Comment on above: Performed By: #### U RCX #### [facility] [address] [address] [address] Anthony Bonilla Globulin (S) [Mass/Vol] 3.1 g/dL Normal [facility] Comment on above: Performed By: #### U RCX #### [facility] [address] [address] [address] Anthony Bonilla Glucose [Mass/Vol] 107 mg/dL Critically high 74-106 [facility] Comment on above: Performed By: #### U RCX #### [facility] [address] [address] [address] Anthony Bonilla Potassium [Moles/Vol] 3.4 mmol/L Critically low 3.5-5.1 [facility] Comment on above: Performed By: #### U RCX #### [facility] [address] [address] [address] Anthony Bonilla Protein [Mass/Vol] 6.7 g/dL Normal 6.4-8.2 [facility] Comment on above: Performed By: #### U RCX #### [facility] [address] [address] [address] Anthony Bonilla Sodium [Moles/Vol] 143 mmol/L Normal 136-145 [facility] Comment on above: Performed By: #### U RCX #### [facility] [address] [address] [address] Anthony Bonilla Urea nitrogen [Mass/Vol] 22.0 mg/dL Critically high 7.0-18.0 [facility] Comment on above: Performed By: #### U RCX #### [facility] [address] [address] [address] Anthony Bonilla Urea nitrogen/Creatinine [Mass ratio] 18.2 mg/mg Normal [facility] Comment on above: Performed By: #### U RCX #### [facility] [address] [address] [address] Anthony Bonilla Automated erythrocytes count in urine sediment (number/area)Ordered By: Gypsy Mcmahon on 02-16-2022 RBC Auto (Urine sed) [#/Area] 0-1 [HPF] 0-4 [facility] Automated leukocytes count i n urine sediment (number/area)Ordered By: Gypsy Mcmahon on 02-16-2022 WBC Auto (Urine sed) [#/Area] 20-49 [HPF] 0-4 [facility] Bilirubin Test strip Ql (U)O rdered By: Gypsy Mcmahon on 02-16-2022 Bilirubin Ql (U) Negative Negative [facility] Color Auto (U)Ordered By: Nicole Mcmahon on 02-16-2022 Color (U) Yellow Yellow [facility] Ketones Auto test strip (U) [Mass/Vol]Ordered By: Gypsy Mcmahon on 02-16-2022 Ketones (U) [Mass/Vol] Trace Negative [facility] Laboratory - UrinalysisOrder ed By: Gypsy Mcmahon on 02-16-2022 Hyaline casts LM Ql (Urine sed) 9-19 [LPF] 0-8 [facility] Nitrite Test strip Ql (U)Ord ered By: Gypsy Mcmahon on 02-16-2022 Nitrite Ql (U) Positive Negative [facility] Protein Auto test strip (U) [Mass/Vol]Ordered By: Gypsy Mcmahon on 02-16-2022 Protein (U) [Mass/Vol] Negative Negative [facility] Specific gravity Auto test s trip (U) [Rel density]Ordered By: Gypsy Mcmahon on 02-16-2022 Specific gravity (U) [Rel density] 1.018 1.001-1.03 0 [facility] Squamous epithelial cells de tection in urine sediment by light microscopyOrdered By: Gypsy Mcmahon on 02-16-2022 Epithelial cells.squamous LM Ql (Urine sed) 5-9 [HPF] 0-2 [facility] Urine Cultureon 02-16-2022 Urine Culture >100,000 [employer] Other Urine Culture <16 Susceptible [employer] Other Urine Culture <8/4 Susceptible [employer] Other Urine Culture <4 Susceptible [employer] Other Urine Culture <2 Susceptible [employer] Other Urine Culture <1 Susceptible [employer] Other Urine Culture <0.25 Susceptible [employer] Other Urine Culture <0.5 Susceptible [employer] Other Urine Culture <32 Susceptible [employer] Other Urine Culture <0.5/9.5 Susceptible [employer] Other Urine bacteria detection by automated methodOrdered By: Gypsy Mcmahon on 02-16-2022 Bacteria Auto Ql (U) 2+ None Seen [facility] Urine clarity by refractomet ry automatedOrdered By: Gypsy Mcmahon on 02-16-2022 Clarity Refractometry automated (U) Cloudy Clear [facility] Urine culture routineOrdered By: Gypsy Mcmahon on 02-16-2022 Bacteria identified Cx Nom (U) Klebsiella variicola [facility] Urine glucose measurement by automated test strip (mass/volume)Ordered By: Gypsy Mcmahon on 02-16-2022 Glucose Auto test strip (U) [Mass/Vol] Normal mg/dL Normal [facility] Urine hemoglobin detection b y automated test stripOrdered By: Gypsy Mcmahon on 02-16-2022 Hemoglobin Auto test strip Ql (U) Negative Negative [facility] Urine leukocyte esterase det ection by automated test stripOrdered By: Gypsy Mcmahon on 02-16-2022 Leukocyte esterase Auto test strip Ql (U) 2+ Negative [facility] Urobilinogen Auto test strip (U) [Mass/Vol]Ordered By: Gypsy Mcmahon on 02-16-2022 Urobilinogen (U) [Mass/Vol] Normal mg/dL Normal [facility] pH Auto test strip (U)Ordere d By: Gypsy Mcmahon on 02-16-2022 pH (U) 5.5 [pH] 5.0-9.0 [facility] CBC AUTO DIFFon 01-15-2022 BASO # 0.0 103/ul Normal 0.0-0.1 [facility] Comment on above: Performed By: #### C BC #### [facility] [address] [address] [address] Anthony Bonilla Basophils/100 WBC (Bld) 0.5 % Normal 0.2-2.0 [facility] Comment on above: Performed By: #### C BC #### [facility] [address] [place] [address] Dr. Anthony Bonilla EO # 0.1 103/ul Normal 0.0-0.7 [facility] Comment on above: Performed By: #### C BC #### [facility] [address] [place] [address] Dr. Anthony Bonilla Eosinophils/100 WBC (Bld) 0.9 % Normal 0.9-7.0 [facility] Comment on above: Performed By: #### C BC #### [facility] [address] [place] [address] Dr. Anthony Bonilla Erythrocyte distribution width (RBC) [Ratio] 14.8 % Normal 11.0-15.0 [facility] Comment on above: Performed By: #### C BC #### [facility] [address] [place] [address] Dr. Anthony Bonilla Hematocrit (Bld) [Volume fraction] 30.3 % Critically low 36.0-48.0 [facility] Comment on above: Performed By: #### C BC #### [facility] [address] [place] [address] Dr. Anthony Bonilla Hemoglobin (Bld) [Mass/Vol] 9.8 g/dL Critically low 12.0-16.0 [facility] Comment on above: Performed By: #### C BC #### [facility] [address] [place] [address] Dr. Anthony Bonilla IG # 0.03 10e3/ul Normal 0.00-0.03 [facility] Comment on above: Performed By: #### C BC #### [facility] [address] [place] [address] Dr. Anthony Bonilla IG % 0.3 % Normal 0.0-0.5 [facility] Comment on above: Performed By: #### C BC #### [facility] [address] [place] [address] Dr. Anthony Bonilla LYMPH # 1.4 103/ul Normal 1.2-3.8 [facility] Comment on above: Performed By: #### C BC #### [facility] [address] [place] [address] Dr. Anthony Bonilla Lymphocytes/100 WBC (Bld) 15.7 % Critically low 20.5-60.0 [facility] Comment on above: Performed By: #### C BC #### [facility] [address] [place] [address] Dr. Anthony Bonilla MANUAL DIFF REQ NO Normal [facility] Comment on above: Performed By: #### C BC #### [facility] [address] [place] [address] Dr. Anthony Bonilla MCH (RBC) [Entitic mass] 30.0 pg Normal 26.7-34.0 [facility] Comment on above: Performed By: #### C BC #### [facility] [address] [place] [address] Dr. Anthony Bonilla MCHC (RBC) [Mass/Vol] 32.3 g/dL Normal 29.9-35.2 [facility] Comment on above: Performed By: #### C BC #### [facility] [address] [place] [address] Dr. Anthony Bonilla MCV (RBC) [Entitic vol] 92.7 fL Normal 81.0-99.0 [facility] Comment on above: Performed By: #### C BC #### [facility] [address] [place] [address] Dr. Anthony Bonilla MONO # 1.1 103/ul Critically high 0.3-0.[address] [facility] Comment on above: Performed By: #### C BC #### [facility] [address] [place] [address] Dr. Anthony Bonilla Monocytes/100 WBC (Bld) 12.0 % Normal 1.7-12.0 [facility] Comment on above: Performed By: #### C BC #### [facility] [address] [place] [address] Dr. Anthony Bonilla NEUT # 6.2 103/ul Normal 1.4-6.5 [facility] Comment on above: Performed By: #### C BC #### [facility] [address] [place] [address] Dr. Anthony Bonilla Neutrophils/100 WBC (Bld) 70.6 % Normal 43.0-75.0 [facility] Comment on above: Performed By: #### C BC #### [facility] [address] [place] [address] Dr. Anthony Bonilla Platelet mean volume (Bld) [Entitic vol] 9.8 fL Normal 9.5-13.5 [facility] Comment on above: Performed By: #### C BC #### [facility] [address] [place] [address] Dr. Anthony Bonilla PLT 305 103/ul Normal 150-450 [facility] Comment on above: Performed By: #### C BC #### [facility] [address] [place] [address] Dr. Anthony Bonilla RBC 3.27 106/ul Critically low 4.20-5.[address] [facility] Comment on above: Performed By: #### C BC #### [facility] [address] [place] [address] Dr. Anthony Bonilla WBC 8.7 103/ul Normal 4.0-11.0 [facility] Comment on above: Performed By: #### C BC #### [facility] [address] [place] [address] Dr. Anthony Bonilla PROF CHEM 8 (BAS METB)on Anion gap [Moles/Vol] 12.2 mmol/L Normal [facility] Comment on above: Performed By: #### U RCX #### [facility] [address] [place] [address] Dr. Anthony Bonilla Calcium [Mass/Vol] 9.1 mg/dL Normal 8.5-10.1 [facility] Comment on above: Performed By: #### U RCX #### [facility] [address] [address] [address] Anthony Bonilla Chloride [Moles/Vol] 104 mmol/L Normal 98-107 [facility] Comment on above: Performed By: #### U RCX #### [facility] [address] [address] [address] Anthony Bonilla CO2 [Moles/Vol] 24.4 mmol/L Normal 21.0-32.[address] [facility] Comment on above: Performed By: #### U RCX #### [facility] [address] [address] [address] Anthony Bonilla Creatinine [Mass/Vol] 1.20 mg/dL Critically high 0.55-1.02 [facility] Comment on above: Performed By: #### U RCX #### [facility] [address] [address] [address] Anthony Bonilla EGFR-AF UGANDAN 52 mL/min/1.73m2 Critically low >=60 [facility] Comment on above: Performed By: #### U RCX #### [facility] [address] [place] [address] Dr. Anthony Bonilla EGFR-NON AF UGANDAN 43 mL/min/1.73m2 Critically low >=60 [facility] Comment on above: Performed By: #### U RCX #### [facility] [address] [address] [address] Anthony Bonilla Glucose [Mass/Vol] 81 mg/dL Normal 74-106 [facility] Comment on above: Performed By: #### U RCX #### [facility] [address] [address] [address] Anthony Bonilla Potassium [Moles/Vol] 3.6 mmol/L Normal 3.5-5.1 [facility] Comment on above: Performed By: #### U RCX #### [facility] [address] [place] [address] Dr. Anthony Bonilla Sodium [Moles/Vol] 137 mmol/L Normal 136-145 [facility] Comment on above: Performed By: #### U RCX #### [facility] [address] [place] [address] Dr. Anthony Bonilla Urea nitrogen [Mass/Vol] 21.0 mg/dL Critically high 7.0-18.0 [facility] Comment on above: Performed By: #### U RCX #### [facility] [address] [place] [address] Dr. Anthony Bonilla Urea nitrogen/Creatinine [Mass ratio] 17.5 mg/mg Normal [facility] Comment on above: Performed By: #### U RCX #### [facility] [address] [place] [address] Dr. Anthony Bonilla CULTURE URINEon 12-29-2021 CULTURE [...] Trimethoprim/Sulfamethoxazol e <=20 S F Normal [facility] Comment on above: Performed By: #### U RCX #### [facility] [address] [address] [address] Anthony Bonilla ER URINE PROFILEon 2 Bilirubin Ql (U) SMALL Abnormal NEGATIVE [facility] Comment on above: Performed By: #### C BC #### [facility] [address] [place] [address] Dr. Anthony Bonilla Clarity (U) SL CLOUDY Abnormal CLEAR [facility] Comment on above: Performed By: #### C BC #### [facility] [address] [place] [address] Dr. Anthony Bonilla Color (U) YELLOW Normal YELLOW [facility] Comment on above: Performed By: #### C BC #### [facility] [address] [place] [address] Dr. Anthony RAMIREZD A micrscopic examina tion will be performed if indicated. Normal [facility] Comment on above: Performed By: #### C BC #### [facility] [address] [place] [address] Dr. Anthony Bonilla Glucose Ql (U) Negative Normal NEGATIVE [facility] Comment on above: Performed By: #### C BC #### [facility] [address] [place] [address] Dr. Anthony Bonilla Hemoglobin Ql (U) Negative Normal NEGATIVE [facility] Comment on above: Performed By: #### C BC #### [facility] [address] [place] [address] Dr. Anthony Bonilla Ketones Ql (U) TRACE Abnormal NEGATIVE [facility] Comment on above: Performed By: #### C BC #### [facility] [address] [place] [address] Dr. Anthony Bonilla LEUKOCYTES MODERATE Abnormal NEGATIVE [facility] Comment on above: Performed By: #### C BC #### [facility] [address] [place] [address] Dr. Anthony Bonilla Nitrite Ql (U) Positive Abnormal NEGATIVE [facility] Comment on above: Performed By: #### C BC #### [facility] [address] [place] [address] Dr. Anthony Bonilla pH (U) 7.5 [pH] Normal 5-9 [facility] Comment on above: Performed By: #### C BC #### [facility] [address] [place] [address] Dr. Anthony Bonilla Protein (U) [Mass/Vol] 30 mg/dL Abnormal NEGATIVE/ TRACE [facility] Comment on above: Performed By: #### C BC #### [facility] [address] [place] [address] Dr. Anthony Bonilla SPEC GRAVITY 1.020 Normal 1.005-<=1. 025 [facility] Comment on above: Performed By: #### C BC #### [facility] [address] [place] [address] Dr. Anthony Bonilla UR MICRO IND INDICATED Normal [facility] Comment on above: Performed By: #### C BC #### [facility] [address] [place] [address] Dr. Anthony Bonilla Urobilinogen Qn (U) 0.2 {Gen'U}/dL Normal 0.2 - 1. 0 [facility] Comment on above: Performed By: #### C BC #### [facility] [address] [place] [address] Dr. Anthony Bonilla URINE MICROSCOPIC ONLYon BACTERIA TRACE Abnormal NONE SEEN [facility] Comment on above: Performed By: #### C BC #### [facility] [address] [place] [address] Dr. Anthony Bonilla Bacteria identified Cx Nom (U) INDICATED Normal [facility] Comment on above: Performed By: #### C BC #### [facility] [address] [place] [address] Dr. Anthony Bonilla CAST NONE SEEN Normal NONE SEEN [facility] Comment on above: Performed By: #### C BC #### [facility] [address] [place] [address] Dr. Anthony Bonilla Crystals LM Nom (Urine sed) NONE SEEN Normal NONE SEEN [facility] Comment on above: Performed By: #### C BC #### [facility] [address] [place] [address] Dr. Anthony Bonilla Epithelial cells LM Ql (Urine sed) FEW Abnormal NONE SEEN /RARE [facility] Comment on above: Performed By: #### C BC #### [facility] [address] [place] [address] Dr. Anthony Bonilla MUCOUS NONE SEEN Normal NONE SEEN [facility] Comment on above: Performed By: #### C BC #### [facility] [address] [place] [address] Dr. Anthony Bonilla RBC 0-2 Normal 0-2 [facility] Comment on above: Performed By: #### C BC #### [facility] [address] [place] [address] Dr. Anthony Bonilla WBC 5-10 Abnormal NONE SEEN [facility] Comment on above: Performed By: #### C BC #### [facility] [address] [place] [address] Dr. Anthony Bonilla PRBC LEUKOREDUCEDon 11-20-19 PRBC LEUKOREDUCED Cross Match Result Compatible Unit Blood Type A Pos Unit Number [id number] Status Information Transfused Product ID Red Blood Cells Product Code [id number] Normal [facility] Comment on above: Performed By: #### P RBC #### [facility] [address] [place] [address] Dr. Anthony Bonilla CBC AUTO DIFFon 11-10-2021 BASO # 0.0 103/ul Normal 0.0-0.1 [facility] Comment on above: Performed By: #### C BC #### [facility] [address] [place] [address] Dr. Anthony Bonilla Basophils/100 WBC (Bld) 0.7 % Normal 0.2-2.0 [facility] Comment on above: Performed By: #### C BC #### [facility] [address] [place] [address] Dr. Anthony Bonilla EO # 0.2 103/ul Normal 0.0-0.7 [facility] Comment on above: Performed By: #### C BC #### [facility] [address] [place] [address] Dr. Anthony Bonilla Eosinophils/100 WBC (Bld) 2.7 % Normal 0.9-7.0 [facility] Comment on above: Performed By: #### C BC #### [facility] [address] [place] [address] Dr. Anthony Bonilla Erythrocyte distribution width (RBC) [Ratio] 16.3 % Critically high 11.0-15.0 [facility] Comment on above: Performed By: #### C BC #### [facility] [address] [place] [address] Dr. Anthony Bonilla Hematocrit (Bld) [Volume fraction] 29.0 % Critically low 36.0-48.0 [facility] Comment on above: Performed By: #### C BC #### [facility] [address] [place] [address] Dr. Anthony Bonilla Hemoglobin (Bld) [Mass/Vol] 9.4 g/dL Critically low 12.0-16.0 [facility] Comment on above: Performed By: #### C BC #### [facility] [address] [place] [address] Dr. Anthony Bonilla IG # 0.04 10e3/ul Critically high 0.00-0.03 [facility] Comment on above: Performed By: #### C BC #### [facility] [address] [place] [address] Dr. Anthony Bonilla IG % 0.7 % Critically high 0.0-0.[address] [facility] Comment on above: Performed By: #### C BC #### [facility] [address] [place] [address] Dr. Anthony Bonilla LYMPH # 1.2 103/ul Normal 1.2-3.8 [facility] Comment on above: Performed By: #### C BC #### [facility] [address] [place] [address] Dr. Anthony Bonilla Lymphocytes/100 WBC (Bld) 21.5 % Normal 20.5-60.0 [facility] Comment on above: Performed By: #### C BC #### [facility] [address] [place] [address] Dr. Anthony Bonilla MANUAL DIFF REQ NO Normal [facility] Comment on above: Performed By: #### C BC #### [facility] [address] [place] [address] Dr. Anthony Bonilla MCH (RBC) [Entitic mass] 32.3 pg Normal 26.7-34.0 [facility] Comment on above: Performed By: #### C BC #### [facility] [address] [place] [address] Dr. Anthony Bonilla MCHC (RBC) [Mass/Vol] 32.4 g/dL Normal 29.9-35.2 [facility] Comment on above: Performed By: #### C BC #### [facility] [address] [place] [address] Dr. Anthony Bonilla MCV (RBC) [Entitic vol] 99.7 fL Critically high 81.0-99.0 [facility] Comment on above: Performed By: #### C BC #### [facility] [address] [place] [address] Dr. Anthony Bonilla MONO # 0.7 103/ul Normal 0.3-0.8 [facility] Comment on above: Performed By: #### C BC #### [facility] [address] [place] [address] Dr. Anthony Bonilla Monocytes/100 WBC (Bld) 12.6 % Critically high 1.7-12.0 [facility] Comment on above: Performed By: #### C BC #### [facility] [address] [place] [address] Dr. Anthony Bonilla NEUT # 3.4 103/ul Normal 1.4-6.5 [facility] Comment on above: Performed By: #### C BC #### [facility] [address] [place] [address] Dr. Anthony Bonilla Neutrophils/100 WBC (Bld) 61.8 % Normal 43.0-75.0 [facility] Comment on above: Performed By: #### C BC #### [facility] [address] [place] [address] Dr. Anthony Bonilla Platelet mean volume (Bld) [Entitic vol] 9.0 fL Critically low 9.5-13.5 [facility] Comment on above: Performed By: #### C BC #### [facility] [address] [place] [address] Dr. Anthony Bonilla PLT 429 103/ul Normal 150-450 [facility] Comment on above: Performed By: #### C BC #### [facility] [address] [place] [address] Dr. Anthony Bonilla RBC 2.91 106/ul Critically low 4.20-5.40 [facility] Comment on above: Performed By: #### C BC #### [facility] [address] [place] [address] Dr. Anthony Bonilla WBC 5.5 103/ul Normal 4.0-11.0 [facility] Comment on above: Performed By: #### C BC #### [facility] [address] [place] [address] Dr. Anthony Bonilla PROF CHEM 8 (BAS METB)on Anion gap [Moles/Vol] 11.0 mmol/L Normal [facility] Comment on above: Performed By: #### B MP #### [facility] [address] [place] [address] Dr. Anthony Bonilla Calcium [Mass/Vol] 9.2 mg/dL Normal 8.5-10.1 [facility] Comment on above: Performed By: #### B MP #### [facility] [address] [place] [address] Dr. Anthony Bonilla Chloride [Moles/Vol] 107 mmol/L Normal 98-107 [facility] Comment on above: Performed By: #### B MP #### [facility] [address] [place] [address] Dr. Anthony Bonilla CO2 [Moles/Vol] 27.4 mmol/L Normal 21.0-32.0 [facility] Comment on above: Performed By: #### B MP #### [facility] [address] [place] [address] Dr. Anthony Bonilla Creatinine [Mass/Vol] 1.12 mg/dL Critically high 0.55-1.02 [facility] Comment on above: Performed By: #### B MP #### [facility] [address] [address] [address] Anthony Bonilla EGFR-AF UGANDAN 56 mL/min/1.73m2 Critically low >=60 [facility] Comment on above: Performed By: #### B MP #### [facility] [address] [address] [address] Anthony Bonilla EGFR-NON AF UGANDAN 46 mL/min/1.73m2 Critically low >=60 [facility] Comment on above: Performed By: #### B MP #### [facility] [address] [place] [address] Dr. Anthony Bonilla Glucose [Mass/Vol] 89 mg/dL Normal 74-106 [facility] Comment on above: Performed By: #### B MP #### [facility] [address] [address] [address] Anthony Bonilla Potassium [Moles/Vol] 4.4 mmol/L Normal 3.5-5.1 [facility] Comment on above: Performed By: #### B MP #### [facility] [address] [address] [address] Anthony Bonilla Sodium [Moles/Vol] 141 mmol/L Normal 136-145 [facility] Comment on above: Performed By: #### B MP #### [facility] [address] [address] [address] Anthony Bonilla Urea nitrogen [Mass/Vol] 18.0 mg/dL Normal 7.0-18.0 [facility] Comment on above: Performed By: #### B MP #### [facility] [address] [address] [address] Anthony Bonilla Urea nitrogen/Creatinine [Mass ratio] 16.1 mg/mg Normal [facility] Comment on above: Performed By: #### B MP #### [facility] [address] [place] [address] Dr. Anthony Bonilla CBC AUTO DIFFon 11-04-2021 BASO # 0.0 103/ul Normal 0.0-0.1 [facility] Comment on above: Performed By: #### C BC #### [facility] [address] [place] [address] Dr. Anthony Bonilla Basophils/100 WBC (Bld) 0.2 % Normal 0.2-2.0 [facility] Comment on above: Performed By: #### C BC #### [facility] [address] [place] [address] Dr. Anthony Bonilla EO # 0.1 103/ul Normal 0.0-0.7 [facility] Comment on above: Performed By: #### C BC #### [facility] [address] [place] [address] Dr. Anthony Bonilla Eosinophils/100 WBC (Bld) 0.8 % Critically low 0.9-7.0 [facility] Comment on above: Performed By: #### C BC #### [facility] [address] [place] [address] Dr. Anthony Bonilla Erythrocyte distribution width (RBC) [Ratio] 16.7 % Critically high 11.0-15.0 [facility] Comment on above: Performed By: #### C BC #### [facility] [address] [place] [address] Dr. Anthony Bonilla Hematocrit (Bld) [Volume fraction] 25.6 % Critically low 36.0-48.0 [facility] Comment on above: Performed By: #### C BC #### [facility] [address] [place] [address] Dr. Anthony Bonilla Hemoglobin (Bld) [Mass/Vol] 8.5 g/dL Critically low 12.0-16.0 [facility] Comment on above: Performed By: #### C BC #### [facility] [address] [place] [address] Dr. Anthony Bonilla IG # 0.05 10e3/ul Critically high 0.00-0.03 [facility] Comment on above: Performed By: #### C BC #### [facility] [address] [place] [address] Dr. Anthony Bonilla IG % 0.5 % Normal 0.0-0.5 [facility] Comment on above: Performed By: #### C BC #### [facility] [address] [place] [address] Dr. Anthony Bonilla LYMPH # 0.6 103/ul Critically low 1.2-3.8 [facility] Comment on above: Performed By: #### C BC #### [facility] [address] [place] [address] Dr. Anthony Bonilla Lymphocytes/100 WBC (Bld) 6.2 % Critically low 20.5-60.0 [facility] Comment on above: Performed By: #### C BC #### [facility] [address] [place] [address] Dr. Anthony Bonilla MANUAL DIFF REQ NO Normal [facility] Comment on above: Performed By: #### C BC #### [facility] [address] [place] [address] Dr. Anthony Bonilla MCH (RBC) [Entitic mass] 31.6 pg Normal 26.7-34.0 [facility] Comment on above: Performed By: #### C BC #### [facility] [address] [place] [address] Dr. nAthony Bonilla MCHC (RBC) [Mass/Vol] 33.2 g/dL Normal 29.9-35.2 [facility] Comment on above: Performed By: #### C BC #### [facility] [address] [place] [address] Dr. Anthony Bonilla MCV (RBC) [Entitic vol] 95.2 fL Normal 81.0-99.0 [facility] Comment on above: Performed By: #### C BC #### [facility] [address] [place] [address] Dr. Anthony Bonilla MONO # 0.6 103/ul Normal 0.3-0.8 [facility] Comment on above: Performed By: #### C BC #### [facility] [address] [place] [address] Dr. Anthony Bonilla Monocytes/100 WBC (Bld) 6.1 % Normal 1.7-12.0 [facility] Comment on above: Performed By: #### C BC #### [facility] [address] [address] [address] Anthony Bonilla NEUT # 8.8 103/ul Critically high 1.4-6.5 [facility] Comment on above: Performed By: #### C BC #### [facility] [address] [address] [address] Anthony Bonilla Neutrophils/100 WBC (Bld) 86.2 % Critically high 43.0-75.0 [facility] Comment on above: Performed By: #### C BC #### [facility] [address] [address] [address] Anthony Bonilla Platelet mean volume (Bld) [Entitic vol] 9.8 fL Normal 9.5-13.5 [facility] Comment on above: Performed By: #### C BC #### [facility] [address] [place] [address] Dr. Anthony Bonilla PLT 156 103/ul Normal 150-450 [facility] Comment on above: Performed By: #### C BC #### [facility] [address] [address] [address] Anthony Bonilla RBC 2.69 106/ul Critically low 4.20-5.40 [facility] Comment on above: Performed By: #### C BC #### [facility] [address] [place] [address] Dr. Anthony Bonilla WBC 10.3 103/ul Normal 4.0-11.0 [facility] Comment on above: Performed By: #### C BC #### [facility] [address] [place] [address] Dr. Anthony Bonilla CULTURE URINEon 11-04-2021 CULTURE [...] e <=20 S F Normal [facility] Comment on above: Performed By: #### U RCX #### [facility] [address] [place] [address] Dr. Anthony Bonilla PROF CHEM 8 (BAS METB)on Anion gap [Moles/Vol] 12.9 mmol/L Normal [facility] Comment on above: Performed By: #### U RCX #### [facility] [address] [place] [address] Dr. Anthony Bonilla Calcium [Mass/Vol] 8.6 mg/dL Normal 8.5-10.1 [facility] Comment on above: Performed By: #### U RCX #### [facility] [address] [place] [address] Dr. Anthony Bonilla Chloride [Moles/Vol] 108 mmol/L Critically high 98-107 [facility] Comment on above: Performed By: #### U RCX #### [facility] [address] [place] [address] Dr. Anthony Bonilla CO2 [Moles/Vol] 23.1 mmol/L Normal 21.0-32.0 [facility] Comment on above: Performed By: #### U RCX #### [facility] [address] [place] [address] Dr. Anthony Bonilla Creatinine [Mass/Vol] 0.98 mg/dL Normal 0.55-1.02 [facility] Comment on above: Performed By: #### U RCX #### [facility] [address] [place] [address] Dr. Anthony Bonilla EGFR-AF UGANDAN >60 Normal >=60 [facility] Comment on above: Performed By: #### U RCX #### [facility] [address] [place] [address] Dr. Anthony Bonilla EGFR-NON AF UGANDAN 54 mL/min/1.73m2 Critically low >=60 [facility] Comment on above: Performed By: #### U RCX #### [facility] [address] [place] [address] Dr. Anthony Bonilla Glucose [Mass/Vol] 86 mg/dL Normal 74-106 [facility] Comment on above: Performed By: #### U RCX #### [facility] [address] [address] [address] Anthony Bonilla Potassium [Moles/Vol] 4.0 mmol/L Normal 3.5-5.1 [facility] Comment on above: Performed By: #### U RCX #### [facility] [address] [place] [address] Dr. Anthony Bonilla Sodium [Moles/Vol] 140 mmol/L Normal 136-145 [facility] Comment on above: Performed By: #### U RCX #### [facility] [address] [place] [address] Dr. Anthony Bonilla Urea nitrogen [Mass/Vol] 31.0 mg/dL Critically high 7.0-18.0 [facility] Comment on above: Performed By: #### U RCX #### [facility] [address] [place] [address] Dr. Anthony Bonilla Urea nitrogen/Creatinine [Mass ratio] 31.6 mg/mg Normal [facility] Comment on above: Performed By: #### U RCX #### [facility] [address] [place] [address] Dr. Anthony Bonilla CBC AUTO DIFFon 11-03-2021 BASO # 0.0 103/ul Normal 0.0-0.1 [facility] Comment on above: Performed By: #### C BC #### [facility] [address] [place] [address] Dr. Anthony Bonilla Basophils/100 WBC (Bld) 0.3 % Normal 0.2-2.0 [facility] Comment on above: Performed By: #### C BC #### [facility] [address] [place] [address] Dr. Anthony Bonilla EO # 0.1 103/ul Normal 0.0-0.7 [facility] Comment on above: Performed By: #### C BC #### [facility] [address] [place] [address] Dr. Anthony Bonilla Eosinophils/100 WBC (Bld) 0.6 % Critically low 0.9-7.0 [facility] Comment on above: Performed By: #### C BC #### [facility] [address] [place] [address] Dr. Anthony Bonilla Erythrocyte distribution width (RBC) [Ratio] 14.0 % Normal 11.0-15.0 [facility] Comment on above: Performed By: #### C BC #### [facility] [address] [place] [address] Dr. nAthony Bonilla Hematocrit (Bld) [Volume fraction] 23.1 % Critically low 36.0-48.0 [facility] Comment on above: Result Comment: Flui ds given Performed By: #### C BC #### [facility] [address] [place] [address] Dr. Anthony Bonilla Hemoglobin (Bld) [Mass/Vol] 7.6 g/dL Critically low 12.0-16.0 [facility] Comment on above: Performed By: #### C BC #### [facility] [address] [place] [address] Dr. Anthony Bonilla IG # 0.07 10e3/ul Critically high 0.00-0.03 [facility] Comment on above: Performed By: #### C BC #### [facility] [address] [place] [address] Dr. Anthony Bonilla IG % 0.6 % Critically high 0.0-0.[address] [facility] Comment on above: Performed By: #### C BC #### [facility] [address] [place] [address] Dr. Anthony Bonilla LYMPH # 0.7 103/ul Critically low 1.2-3.8 [facility] Comment on above: Performed By: #### C BC #### [facility] [address] [place] [address] Dr. Anthony Bonilla Lymphocytes/100 WBC (Bld) 5.7 % Critically low 20.5-60.0 [facility] Comment on above: Performed By: #### C BC #### [facility] [address] [place] [address] Dr. Anthony Bonilla MANUAL DIFF REQ NO Normal [facility] Comment on above: Performed By: #### C BC #### [facility] [address] [place] [address] Dr. Anthony Bonilla MCH (RBC) [Entitic mass] 32.6 pg Normal 26.7-34.0 [facility] Comment on above: Performed By: #### C BC #### [facility] [address] [place] [address] Dr. Anthony Bonilla MCHC (RBC) [Mass/Vol] 32.9 g/dL Normal 29.9-35.2 [facility] Comment on above: Performed By: #### C BC #### [facility] [address] [place] [address] Dr. Anthony Bonilla MCV (RBC) [Entitic vol] 99.1 fL Critically high 81.0-99.0 [facility] Comment on above: Performed By: #### C BC #### [facility] [address] [place] [address] Dr. Anthony Bonilla MONO # 0.8 103/ul Normal 0.3-0.8 [facility] Comment on above: Performed By: #### C BC #### [facility] [address] [place] [address] Dr. Anthony Bonilla Monocytes/100 WBC (Bld) 6.8 % Normal 1.7-12.0 [facility] Comment on above: Performed By: #### C BC #### [facility] [address] [place] [address] Dr. Anthony Bonilla NEUT # 9.8 103/ul Critically high 1.4-6.[address] [facility] Comment on above: Performed By: #### C BC #### [facility] [address] [place] [address] Dr. Anthony Bonilla Neutrophils/100 WBC (Bld) 86.0 % Critically high 43.0-75.0 [facility] Comment on above: Performed By: #### C BC #### [facility] [address] [place] [address] Dr. Anthony Bonilla Platelet mean volume (Bld) [Entitic vol] 9.5 fL Normal 9.5-13.5 [facility] Comment on above: Performed By: #### C BC #### [facility] [address] [place] [address] Dr. Anthony Bonilla PLT 160 103/ul Normal 150-450 [facility] Comment on above: Performed By: #### C BC #### [facility] [address] [place] [address] Dr. Anthony Bonilla RBC 2.33 106/ul Critically low 4.20-5.[address] [facility] Comment on above: Performed By: #### C BC #### [facility] [address] [place] [address] Dr. Anthoyn Bonilla WBC 11.4 103/ul Critically high 4.0-11.[address] [facility] Comment on above: Performed By: #### C BC #### [facility] [address] [place] [address] Dr. Anthony Bonilla HEMOGLOBIN AND HEMATOCRITon 11-03-2021 Hematocrit (Bld) [Volume fraction] 27.0 % Critically low 36.0-48.0 [facility] Comment on above: Performed By: #### U RCX #### [facility] [address] [place] [address] Dr. Anthony Bonilla Hemoglobin (Bld) [Mass/Vol] 9.1 g/dL Critically low 12.0-16.0 [facility] Comment on above: Performed By: #### U RCX #### [facility] [address] [place] [address] Dr. Anthony Bonilla OCC BLD IMMUNO SCREENon 10-10 OCCULT BLOOD Positive Abnormal NEGATIVE [facility] Comment on above: Performed By: #### C BC #### [facility] [address] [place], [place] [id number] Dr. Anthony Bonilla PROF CHEM 8 (BAS METB)on Anion gap [Moles/Vol] 10.7 mmol/L Normal [facility] Comment on above: Performed By: #### C BC #### [facility] [address] [place] [address] Dr. Anthony Bonilla Calcium [Mass/Vol] 8.6 mg/dL Normal 8.5-10.1 [facility] Comment on above: Performed By: #### C BC #### [facility] [address] [place] [address] Dr. Anthony Bonilla Chloride [Moles/Vol] 107 mmol/L Normal 98-107 [facility] Comment on above: Performed By: #### C BC #### [facility] [address] [place] [address] Dr. Anthony Bonilla CO2 [Moles/Vol] 24.4 mmol/L Normal 21.0-32.[address] [facility] Comment on above: Performed By: #### C BC #### [facility] [address] [place] [address] Dr. Anthony Bonilla Creatinine [Mass/Vol] 0.98 mg/dL Normal 0.55-1.02 [facility] Comment on above: Performed By: #### C BC #### [facility] [address] [place] [address] Dr. Anthony Bonilla EGFR-AF UGANDAN >60 Normal >=[address] [facility] Comment on above: Performed By: #### C BC #### [facility] [address] [place] [address] Dr. Anthony Bonilla EGFR-NON AF UGANDAN 54 mL/min/1.73m2 Critically low >=60 [facility] Comment on above: Performed By: #### C BC #### [facility] [address] [place] [address] Dr. Anthony Bonilla Glucose [Mass/Vol] 98 mg/dL Normal 74-106 [facility] Comment on above: Performed By: #### C BC #### [facility] [address] [place] [address] Dr. Anthony Bonilla Potassium [Moles/Vol] 4.1 mmol/L Normal 3.5-5.1 [facility] Comment on above: Performed By: #### C BC #### [facility] [address] [place] [address] Dr. Anthony Bonilla Sodium [Moles/Vol] 138 mmol/L Normal 136-145 [facility] Comment on above: Performed By: #### C BC #### [facility] [address] [place] [address] Dr. Anthony Bonilla Urea nitrogen [Mass/Vol] 43.0 mg/dL Critically high 7.0-18.0 [facility] Comment on above: Performed By: #### C BC #### [facility] [address] [place] [address] Dr. Anthony Bonilla Urea nitrogen/Creatinine [Mass ratio] 43.9 mg/mg Normal [facility] Comment on above: Performed By: #### C BC #### [facility] [address] [place] [address] Dr. Anthony Bonilla TYPE AND SCREENon 11-03-2021 TYPE AND SCREEN Negative Normal [facility] Comment on above: Performed By: #### C BC #### [facility] [address] [place] [address] Dr. Anthony Bonilla CBC AUTO DIFFon 11-02-2021 BASO # 0.0 103/ul Normal 0.0-0.1 [facility] Comment on above: Performed By: #### U RCX #### [facility] [address] [place] [address] Dr. Anthony Bonilla Basophils/100 WBC (Bld) 0.3 % Normal 0.2-2.0 [facility] Comment on above: Performed By: #### U RCX #### [facility] [address] [place] [address] Dr. Anthony Bonilla EO # 0.0 103/ul Normal 0.0-0.7 [facility] Comment on above: Performed By: #### U RCX #### [facility] [address] [place] [address] Dr. Anthony Bonilla Eosinophils/100 WBC (Bld) 0.1 % Critically low 0.9-7.0 [facility] Comment on above: Performed By: #### U RCX #### [facility] [address] [place] [address] Dr. Anthony Bonilla Erythrocyte distribution width (RBC) [Ratio] 13.9 % Normal 11.0-15.0 [facility] Comment on above: Performed By: #### U RCX #### [facility] [address] [place] [address] Dr. Anthony Bonilla Hematocrit (Bld) [Volume fraction] 31.8 % Critically low 36.0-48.0 [facility] Comment on above: Performed By: #### U RCX #### [facility] [address] [place] [address] Dr. Anthony Bonilla Hemoglobin (Bld) [Mass/Vol] 10.5 g/dL Critically low 12.0-16.0 [facility] Comment on above: Performed By: #### U RCX #### [facility] [address] [place] [address] Dr. Anthony Bonilla IG # 0.07 10e3/ul Critically high 0.00-0.03 [facility] Comment on above: Performed By: #### U RCX #### [facility] [address] [place] [address] Dr. Anthony Bonilla IG % 0.5 % Normal 0.0-0.5 [facility] Comment on above: Performed By: #### U RCX #### [facility] [address] [place] [address] Dr. Anthony Bonilla LYMPH # 0.9 103/ul Critically low 1.2-3.8 [facility] Comment on above: Performed By: #### U RCX #### [facility] [address] [place] [address] Dr. Anthony Bonilla Lymphocytes/100 WBC (Bld) 6.1 % Critically low 20.5-60.0 [facility] Comment on above: Performed By: #### U RCX #### [facility] [address] [address] [address] Anthony Bonilla MANUAL DIFF REQ NO Normal [facility] Comment on above: Performed By: #### U RCX #### [facility] [address] [address] [address] Anthony Bonilla MCH (RBC) [Entitic mass] 32.7 pg Normal 26.7-34.0 [facility] Comment on above: Performed By: #### U RCX #### [facility] [address] [address] [address] Anthony Bonilla MCHC (RBC) [Mass/Vol] 33.0 g/dL Normal 29.9-35.2 [facility] Comment on above: Performed By: #### U RCX #### [facility] [address] [place] [address] Dr. Anthony Bonilla MCV (RBC) [Entitic vol] 99.1 fL Critically high 81.0-99.0 [facility] Comment on above: Performed By: #### U RCX #### [facility] [address] [address] [address] Anthony Bonilla MONO # 1.0 103/ul Critically high 0.3-0.[address] [facility] Comment on above: Performed By: #### U RCX #### [facility] [address] [address] [address] Anthony Bonilla Monocytes/100 WBC (Bld) 6.8 % Normal 1.7-12.0 [facility] Comment on above: Performed By: #### U RCX #### [facility] [address] [place] [address] Dr. Anthony Bonilla NEUT # 12.1 103/ul Critically high 1.4-6.[address] [facility] Comment on above: Performed By: #### U RCX #### [facility] [address] [place] [address] Dr. Anthony Bonilla Neutrophils/100 WBC (Bld) 86.2 % Critically high 43.0-75.0 [facility] Comment on above: Performed By: #### U RCX #### [facility] [address] [address] [address] Anthony Bonilla Platelet mean volume (Bld) [Entitic vol] 9.8 fL Normal 9.5-13.5 [facility] Comment on above: Performed By: #### U RCX #### [facility] [address] [address] [address] Anthony Bonilla PLT 175 103/ul Normal 150-450 [facility] Comment on above: Performed By: #### U RCX #### [facility] [address] [address] [address] Anthony Bonilla RBC 3.21 106/ul Critically low 4.20-5.[address] [facility] Comment on above: Performed By: #### U RCX #### [facility] [address] [address] [address] Anthony Bonilla WBC 14.0 103/ul Critically high 4.0-11.[address] [facility] Comment on above: Performed By: #### U RCX #### [facility] [address] [address] [address] HEAD WO CONon [...] HERNANDO HAMLIN Date: 2021-11-01 22:36 Normal [facility] PROF CHEM 8 (BAS METB)on Anion gap [Moles/Vol] 12.2 mmol/L Normal [facility] Comment on above: Performed By: #### C BC #### [facility] [address] [address] [address] Anthony Bonilla Calcium [Mass/Vol] 8.7 mg/dL Normal 8.5-10.1 [facility] Comment on above: Performed By: #### C BC #### [facility] [address] [address] [address] Anthony Bonilla Chloride [Moles/Vol] 103 mmol/L Normal 98-107 [facility] Comment on above: Performed By: #### C BC #### [facility] [address] [address] [address] Anthony Bonilla CO2 [Moles/Vol] 25.7 mmol/L Normal 21.0-32.0 [facility] Comment on above: Performed By: #### C BC #### [facility] [address] [address] [address] Anthony Bonilla Creatinine [Mass/Vol] 1.08 mg/dL Critically high 0.55-1.02 [facility] Comment on above: Performed By: #### C BC #### [facility] [address] [place] [address] Dr. Anthony Bonilla EGFR-AF UGANDAN 58 mL/min/1.73m2 Critically low >=60 [facility] Comment on above: Performed By: #### C BC #### [facility] [address] [address] [address] Anthony Bonilla EGFR-NON AF UGANDAN 48 mL/min/1.73m2 Critically low >=60 [facility] Comment on above: Performed By: #### C BC #### [facility] [address] [address] [address] Anthony Bonilla Glucose [Mass/Vol] 84 mg/dL Normal 74-106 [facility] Comment on above: Performed By: #### C BC #### [facility] [address] [address] [address] Anthony Bonilla Potassium [Moles/Vol] 4.9 mmol/L Normal 3.5-5.1 [facility] Comment on above: Performed By: #### C BC #### [facility] [address] [address] [address] Anthony Bonilla Sodium [Moles/Vol] 136 mmol/L Normal 136-145 [facility] Comment on above: Performed By: #### C BC #### [facility] [address] [address] [address] Anthony Bonilla Urea nitrogen [Mass/Vol] 33.0 mg/dL Critically high 7.0-18.0 [facility] Comment on above: Performed By: #### C BC #### [facility] [address] [address] [address] Anthony Bonilla Urea nitrogen/Creatinine [Mass ratio] 30.6 mg/mg Normal [facility] Comment on above: Performed By: #### C BC #### [facility] [address] [address] [address] Anthony Bonilla XR CHEST 1 Von [...] GIANA HOLLY Date: 2021-11-01 22:05 Normal [facility] CARDIAC DARWIN ADMITon 022 CK [Catalytic activity/Vol] 92 U/L Normal 26-192 [facility] Comment on above: Performed By: #### C BC #### [facility] [address] [id number] [address] Anthony Bonilla CK.MB [Mass/Vol] 1.73 ng/mL Normal <=3.60 [facility] Comment on above: Performed By: #### C BC #### [facility] [address] [address] [address] Anthony Bonilla HSTROP 20.0 pg/mL Normal 4.0-51.3 [facility] Comment on above: Result Comment: CUT- OFF POINTS HAVE BEEN ESTABLISHED BASED ON THE FOURTH UNIVERSAL DEFINITIONS OF MYOCARDIAL INFARCTION. THE UPPER REFERENCE LIMIT (URL) OF TROPONIN, DEFINED THE 99TH PERCENTILE OF cTnI DISTRIBUTION IN A REFERENCE POPULATION, HAS BEEN CONFIRMED THE DECISION THRESHOLD FOR [place] DIAGNOSIS. Performed By: #### C BC #### [facility] [address] [place] [address] Dr. Anthony Bonilla CANDIDA 58 ng/mL Normal 9-82 [facility] Comment on above: Performed By: #### C BC #### [facility] [address] [place] [address] Dr. Anthony Bonilal CBC AUTO DIFFon 11-01-2021 BASO # 0.0 103/ul Normal 0.0-0.1 [facility] Comment on above: Performed By: #### U RCX #### [facility] [address] [place] [address] Dr. Anthony Bonilla Basophils/100 WBC (Bld) 0.2 % Normal 0.2-2.0 [facility] Comment on above: Performed By: #### U RCX #### [facility] [address] [place] [address] Dr. Anthony Bonilla EO # 0.0 103/ul Normal 0.0-0.7 [facility] Comment on above: Performed By: #### U RCX #### [facility] [address] [place] [address] Dr. Anthony Bonilla Eosinophils/100 WBC (Bld) 0.0 % Critically low 0.9-7.0 [facility] Comment on above: Performed By: #### U RCX #### [facility] [address] [place] [address] Dr. Anthony Bonilla Erythrocyte distribution width (RBC) [Ratio] 14.1 % Normal 11.0-15.0 [facility] Comment on above: Performed By: #### U RCX #### [facility] [address] [place] [address] Dr. Anthony Bonilla Hematocrit (Bld) [Volume fraction] 36.0 % Normal 36.0-48.0 [facility] Comment on above: Performed By: #### U RCX #### [facility] [address] [address] [address] Anthony Bonilla Hemoglobin (Bld) [Mass/Vol] 12.1 g/dL Normal 12.0-16.0 [facility] Comment on above: Performed By: #### U RCX #### [facility] [address] [address] [address] Anthony Bonilla IG # 0.11 10e3/ul Critically high 0.00-0.03 [facility] Comment on above: Performed By: #### U RCX #### [facility] [address] [address] [address] Anthony Bonilla IG % 0.5 % Normal 0.0-0.5 [facility] Comment on above: Performed By: #### U RCX #### [facility] [address] [address] [address] Anthony Bonilla LYMPH # 0.7 103/ul Critically low 1.2-3.8 [facility] Comment on above: Performed By: #### U RCX #### [facility] [address] [address] [address] Anthony Bonilla Lymphocytes/100 WBC (Bld) 3.2 % Critically low 20.5-60.0 [facility] Comment on above: Performed By: #### U RCX #### [facility] [address] [address] [address] Anthony Bonilla MANUAL DIFF REQ NO Normal [facility] Comment on above: Performed By: #### U RCX #### [facility] [address] [address] [address] Anthony Bonilla MCH (RBC) [Entitic mass] 33.0 pg Normal 26.7-34.0 [facility] Comment on above: Performed By: #### U RCX #### [facility] [address] [address] [address] Anthony Bonilla MCHC (RBC) [Mass/Vol] 33.6 g/dL Normal 29.9-35.2 [facility] Comment on above: Performed By: #### U RCX #### [facility] [address] [address] [address] Anthony Bonilla MCV (RBC) [Entitic vol] 98.1 fL Normal 81.0-99.0 [facility] Comment on above: Performed By: #### U RCX #### [facility] [address] [address] [address] Anthony Bonilla MONO # 1.1 103/ul Critically high 0.3-0.[address] [facility] Comment on above: Performed By: #### U RCX #### [facility] [address] [address] [address] Anthony Bonilla Monocytes/100 WBC (Bld) 4.8 % Normal 1.7-12.0 [facility] Comment on above: Performed By: #### U RCX #### [facility] [address] [place] [address] Dr. Anthony Bonilla NEUT # 20.3 103/ul Critically high 1.4-6.5 [facility] Comment on above: Performed By: #### U RCX #### [facility] [address] [place] [address] Dr. Anthony Bonilla Neutrophils/100 WBC (Bld) 91.3 % Critically high 43.0-75.0 [facility] Comment on above: Performed By: #### U RCX #### [facility] [address] [address] [address] Anthony Bonilla Platelet mean volume (Bld) [Entitic vol] 10.8 fL Normal 9.5-13.5 [facility] Comment on above: Performed By: #### U RCX #### [facility] [address] [address] [address] Anthony Bonilla PLT 179 103/ul Normal 150-450 [facility] Comment on above: Performed By: #### U RCX #### [facility] [address] [address] [address] Anthony Bonilla RBC 3.67 106/ul Critically low 4.20-5.[address] [facility] Comment on above: Performed By: #### U RCX #### [facility] [address] [place] [address] Dr. Anthony Bonilla WBC 22.2 103/ul Critically high 4.0-11.[address] [facility] Comment on above: Performed By: #### U RCX #### [facility] [address] [place] [address] Dr. Anthony Bonilla CULTURE BLOODon 11-01-2021 Microscopic examination of blood, culture Culture Observations: NO GROWTH AT 5 DAYS. Normal [facility] Comment on above: Performed By: #### B LDCX2 #### [facility] [address] [place] [address] Dr. Anthony Bonilla Performed By: #### C BC #### [facility] [address] [place] [address] Dr. Anthony Bonilla Covid-19 PCR ([facility])on 10-10 SARS-CoV-2 (COVID-19) RNA OH+probe Ql (Unsp spec) Detected Critically abnormal NOT DETECTED [facility] Comment on above: Result Comment: This test is not yet approved or cleared by the [place] FDA. When there are no FDA-approved or cleared tests available, and other criteria are met, FDA can make tests available under an emergency access mechanism called an Emergency Use Authorization (EUA). The EUA for this test is supported by the Hide Inspector And Sorter of Health and Human Service's declaration that [...] used). Performed By: #### C BC #### [facility] [address] [place] [address] Dr. Anthony Bonilla ER URINE PROFILEon 2 Bilirubin Ql (U) Negative Normal NEGATIVE [facility] Comment on above: Performed By: #### U RCX #### [facility] [address] [place] [address] Dr. Anthony Bonilla Clarity (U) CLEAR Normal CLEAR [facility] Comment on above: Performed By: #### U RCX #### [facility] [address] [address] [address] Anthony Bonilla Color (U) LT. YELLOW Normal YELLOW [facility] Comment on above: Performed By: #### U RCX #### [facility] [address] [address] [address] Anthony Bonilla ERUAHD A micrscopic examina tion will be performed if indicated. Normal [facility] Comment on above: Performed By: #### U RCX #### [facility] [address] [address] [address] Anthony Bonilla Glucose Ql (U) Negative Normal NEGATIVE [facility] Comment on above: Performed By: #### U RCX #### [facility] [address] [place] [address] Dr. Anthony Bonilla Hemoglobin Ql (U) TRACE-INTACT Abnormal NEGATIVE [facility] Comment on above: Performed By: #### U RCX #### [facility] [address] [address] [address] Anthony Bonilla Ketones Ql (U) Negative Normal NEGATIVE [facility] Comment on above: Performed By: #### U RCX #### [facility] [address] [address] [address] Anthony Bonilla LEUKOCYTES Negative Normal NEGATIVE [facility] Comment on above: Performed By: #### U RCX #### [facility] [address] [address] [address] Anthony Bonilla Nitrite Ql (U) Negative Normal NEGATIVE [facility] Comment on above: Performed By: #### U RCX #### [facility] [address] [address] [address] Anthony Bonilla pH (U) 6.0 [pH] Normal 5-9 [facility] Comment on above: Performed By: #### U RCX #### [facility] [address] [place] [address] Dr. Anthony Bonilla SPEC GRAVITY 1.020 Normal 1.005-<=1. 025 [facility] Comment on above: Performed By: #### U RCX #### [facility] [address] [place] [address] Dr. Anthony Bonilla UA PROTEIN Negative Normal NEGATIVE/ TRACE [facility] Comment on above: Performed By: #### U RCX #### [facility] [address] [place] [address] Dr. Anthony Bonilla UR MICRO IND INDICATED Normal [facility] Comment on above: Performed By: #### U RCX #### [facility] [address] [place] [address] Dr. Anthony Bonilla Urobilinogen Qn (U) 1.0 {Gen'U}/dL Normal 0.2 - 1. 0 [facility] Comment on above: Performed By: #### U RCX #### [facility] [address] [place] [address] Dr. Anthony Bonilla LACTATE/LACTIC ACIDon 2021 Lactate [Moles/Vol] 1.6 mmol/L Normal 0.4-1.9 [facility] Comment on above: Performed By: #### C BC #### [facility] [address] [place] [address] Dr. Anthony Bonilla PROF 14(COMP METB)on 022 Albumin [Mass/Vol] 3.2 g/dL Critically low 3.4-5.0 [facility] Comment on above: Performed By: #### C BC #### [facility] [address] [place] [address] Dr. Anthony Bonilla Albumin/Globulin [Mass ratio] 0.9 {ratio} Normal [facility] Comment on above: Performed By: #### C BC #### [facility] [address] [place] [address] Dr. Anthony Bonilla ALP [Catalytic activity/Vol] 26 U/L Critically low 46-116 [facility] Comment on above: Performed By: #### C BC #### [facility] [address] [place] [address] Dr. Anthony Bonilla ALT [Catalytic activity/Vol] 32 U/L Normal 14-59 [facility] Comment on above: Performed By: #### C BC #### [facility] [address] [address] [address] Anthony Bonilla Anion gap [Moles/Vol] 11.5 mmol/L Normal [facility] Comment on above: Performed By: #### C BC #### [facility] [address] [address] [address] Anthony Bonilla AST [Catalytic activity/Vol] 16 U/L Normal 15-37 [facility] Comment on above: Performed By: #### C BC #### [facility] [address] [address] [address] Anthony Bonilla Bilirubin [Mass/Vol] 1.2 mg/dL Critically high 0.2-1.0 [facility] Comment on above: Performed By: #### C BC #### [facility] [address] [address] [address] Anthony Bonilla Calcium [Mass/Vol] 9.0 mg/dL Normal 8.5-10.1 [facility] Comment on above: Performed By: #### C BC #### [facility] [address] [address] [address] Anthony Bonilla Chloride [Moles/Vol] 102 mmol/L Normal 98-107 [facility] Comment on above: Performed By: #### C BC #### [facility] [address] [address] [address] Anthony Bonilla CO2 [Moles/Vol] 25.2 mmol/L Normal 21.0-32.0 [facility] Comment on above: Performed By: #### C BC #### [facility] [address] [address] [address] Anthony Bonilla Creatinine [Mass/Vol] 1.25 mg/dL Critically high 0.55-1.02 [facility] Comment on above: Performed By: #### C BC #### [facility] [address] [address] [address] Anthony Bonilla EGFR-AF UGANDAN 49 mL/min/1.73m2 Critically low >=60 [facility] Comment on above: Performed By: #### C BC #### [facility] [address] [address] [address] Anthony Bonilla EGFR-NON AF UGANDAN 41 mL/min/1.73m2 Critically low >=60 [facility] Comment on above: Performed By: #### C BC #### [facility] [address] [address] [address] Anthony Bonilla Globulin (S) [Mass/Vol] 3.4 g/dL Normal [facility] Comment on above: Performed By: #### C BC #### [facility] [address] [address] [address] Anthony Bonilla Glucose [Mass/Vol] 102 mg/dL Normal 74-106 [facility] Comment on above: Performed By: #### C BC #### [facility] [address] [address] [address] Anthony Bonilla Potassium [Moles/Vol] 4.7 mmol/L Normal 3.5-5.1 [facility] Comment on above: Performed By: #### C BC #### [facility] [address] [address] [address] Anthony Bonilla Protein [Mass/Vol] 6.6 g/dL Normal 6.4-8.2 [facility] Comment on above: Performed By: #### C BC #### [facility] [address] [address] [address] Anthony Bonilla Sodium [Moles/Vol] 134 mmol/L Critically low 136-145 [facility] Comment on above: Performed By: #### C BC #### [facility] [address] [address] [address] Anthony Bonilla Urea nitrogen [Mass/Vol] 33.0 mg/dL Critically high 7.0-18.0 [facility] Comment on above: Performed By: #### C BC #### [facility] [address] [address] [address] Anthony Bonilla Urea nitrogen/Creatinine [Mass ratio] 26.4 mg/mg Normal [facility] Comment on above: Performed By: #### C BC #### [facility] [address] [place] [address] Dr. Anthony Bonilla PROTIMEon 11-01-2021 INR Coag (PPP) [Relative time] 0.97 {INR} Normal [facility] Comment on above: Performed By: #### U RCX #### [facility] [address] [place] [address] Dr. Anthony Bonilla INR GUIDELINES SEE BELOW Normal [facility] Comment on above: Result Comment: MEGAN RED INR: 2.0 - 3.0 CONDITIONS NOT LISTED BELOW 2.5 - 3.5 FOR PROSTHETIC HEART VALVE REPLACEMENT 2.5 - 3.5 RECURRENT THROMBOSIS Performed By: #### U RCX #### [facility] [address] [place] [address] Dr. Anthony Bonilla PT Coag (PPP) [Time] 10.5 s Normal 9.0-11.6 [facility] Comment on above: Performed By: #### U RCX #### [facility] [address] [place] [address] Dr. Anthony Bonilla PTTon 11-01-2021 aPTT Coag (Bld) [Time] 27.8 s Normal 22.3-36.2 [facility] Comment on above: Performed By: #### U RCX #### [facility] [address] [place] [address] Dr. Anthony Bonilla TSHon 11-01-2021 TSH 1.011 uIU/mL Normal 0.358-3.74 0 [facility] Comment on above: Performed By: #### C BC #### [facility] [address] [place] [address] Dr. Anthony Bonilla URINE MICROSCOPIC ONLYon BACTERIA LARGE Abnormal NONE SEEN [facility] Comment on above: Performed By: #### U RCX #### [facility] [address] [place] [address] Dr. Anthony Bonilla Bacteria identified Cx Nom (U) INDICATED Normal [facility] Comment on above: Performed By: #### U RCX #### [facility] [address] [place] [address] Dr. Anthony Bonilla CAST NONE SEEN Normal NONE SEEN [facility] Comment on above: Performed By: #### U RCX #### [facility] [address] [place] [address] Dr. Anthony Bonilla Crystals LM Nom (Urine sed) NONE SEEN Normal NONE SEEN [facility] Comment on above: Performed By: #### U RCX #### [facility] [address] [place] [address] Dr. Anthony Bonilla Epithelial cells LM Ql (Urine sed) FEW Abnormal NONE SEEN /RARE [facility] Comment on above: Performed By: #### U RCX #### [facility] [address] [place] [address] Dr. Anthony Bonilla MUCOUS NONE SEEN Normal NONE SEEN [facility] Comment on above: Performed By: #### U RCX #### [facility] [address] [place] [address] Dr. Anthony Bonilla RBC 2-5 Abnormal 0-2 [facility] Comment on above: Performed By: #### U RCX #### [facility] [address] [place] [address] Dr. Anthony Bonilla WBC 0-2 Abnormal NONE SEEN [facility] Comment on above: Performed By: #### U RCX #### [facility] [address] [place] [address] Dr. Anthony Bonilla Covid-19 PCR ([facility])on SARS-CoV-2 (COVID-19) RNA OH+probe Ql (Unsp spec) Detected Critically abnormal NOT DETECTED [facility] Comment on above: Result Comment: This test is not yet approved or cleared by the [place] FDA. When there are no FDA-approved or cleared tests available, and other criteria are met, FDA can make tests available under an emergency access mechanism called an Emergency Use Authorization (EUA). The EUA for this test is supported by the [place] of Health and Human Service's declaration that [...] used). Performed By: #### C BC #### [facility] [address], [place] [address] Dr. Anthony Bonilla Covid-19 PCR ([facility])on SARS-CoV-2 (COVID-19) RNA [place]+probe Ql (Unsp spec) Not detected Normal NOT DETECTED [facility] Comment on above: Result Comment: This test is not yet approved or cleared by the [place] FDA. When there are no FDA-approved or cleared tests available, and other criteria are met, FDA can make tests available under an emergency access mechanism called an Emergency Use Authorization (EUA). The EUA for this test is supported by the [place] [employer] of Health and Human Service's (HHS's) declaration [...] SARS-CoV-2. Performed By: #### U RCX #### [facility] [address], [place] [address] Dr. 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 Any time this information is not complete, it is the death surveys coder?s responsibility to query the physician. Based on [...] timely attention to this matter. Ambar Manley [employer] Ext [id number] [Electronically Signed on: 10/18/2019 21:40 EDT] Vinayak Mi Phoenixlourdes BOYD [Verified on: 10/18/2019 21:40 EDT] Mi Licea DO [Transcribed on: 10/02/2019 11:06 EDT] [facility] Consent Formson 09-29-2019 Consent Forms [id number][facility] Med[facility] Managementon 09-09 Medication Management [id number]#[facility] Outside Recordson 09-29-2019 Outside Records [id number]#1.00[facility] Outside Records [id number]#1.00[facility] Provider Orderson 09-29-2019 Provider Orders [id number]#1.00[facility] Telemetry Stripson 0 Telemetry Strips [id number]#1.00[facility] .Auto Diff 1on 2019 Auto Eaton % 11 % Normal 02-19 [facility] Comment on above: Performed By: #### 1 [id number], [id number], [id number] #### [facility] (DEFAULT) [address] [place] [address] Baso Abs# 0.0 x10 Normal 0.0-0.2 [facility] Comment on above: Performed By: #### 1 [id number], [id number], [id number] #### [facility] (DEFAULT) [address] [place] [address] Basophils/100 WBC (Bld) 0.1 % Low 0.2-2.0 [facility] Comment on above: Performed By: #### 1 [id number], [id number], [id number] #### [facility] (DEFAULT) [address] [place] [address] Eos Abs# 0.2 x10 Normal 0.0-0.4 [facility] Comment on above: Performed By: #### 1 [id number], [id number], [id number] #### [facility] (DEFAULT) [address] [place] [address] Eosinophils/100 WBC (Bld) 2.2 % Normal 0.9-4.0 [facility] Comment on above: Performed By: #### 1 [id number], [id number], [id number] #### [facility] (DEFAULT) [address] [place] [address] Lymphocytes (Bld) [#/Vol] 0.6 x10 Low 1.3-2.9 [facility] Comment on above: Performed By: #### 1 [id number], [id number], [id number] #### [facility] (DEFAULT) [address] [place] [address] Lymphocytes/100 WBC (Bld) 6 % Low 14-48 [facility] Comment on above: Performed By: #### 1 [id number], [id number], [id number] #### [facility] (DEFAULT) [address] [place] [address] Eaton Abs# 1.0 x10 High 0.0-0.8 [facility] Comment on above: Performed By: #### 1 [id number], [id number], [id number] #### [facility] (DEFAULT) [address] [place] [address] Neut Abs# 7.2 x10 Normal 1.5-9.2 [facility] Comment on above: Performed By: #### 1 [id number], [id number], [id number] #### [facility] (DEFAULT) [address] [place] [address] Neutrophils/100 WBC (Bld) 80 % Normal 44-88 [facility] Comment on above: Performed By: #### 1 [id number], [id number], [id number] #### [facility] (DEFAULT) [address] [place] [address] CBC w/ Auto Diffon 0 Erythrocyte distribution width (RBC) [Ratio] 14.4 % Normal 11.5-15.0 [facility] Comment on above: Performed By: #### 1 [id number], [id number], [id number] #### [facility] (DEFAULT) [address] [place] [address] Hematocrit (Bld) [Volume fraction] 36.2 % Normal 33.7-40.4 [facility] Comment on above: Performed By: #### 1 [id number], [id number], 2993270 #### [facility] (DEFAULT) [address] [place] [address] Hemoglobin (Bld) [Mass/Vol] 11.9 g/dL Normal 11.3-15.9 [facility] Comment on above: Performed By: #### 1 [id number], [id number], [id number] #### [facility] (DEFAULT) [address] [place] [address] Man Diff? Auto Normal [facility] Comment on above: Performed By: #### 1 [id number], [id number], [id number] #### [facility] (DEFAULT) [address] [place] [address] MCH (RBC) [Entitic mass] 33 pg Normal 24-34 [facility] Comment on above: Performed By: #### 1 [id number], [id number], 6861012 #### [facility] (DEFAULT) [address] [place] [address] MCHC (RBC) [Mass/Vol] 33 g/dL Normal 26-37 [facility] Comment on above: Performed By: #### 1 [id number], [id number], [id number] #### [facility] (DEFAULT) [address] [place] [address] MCV (RBC) [Entitic vol] 100 fL Normal 81-100 [facility] Comment on above: Performed By: #### 1 [id number], [id number], 5703820 #### [facility] (DEFAULT) [address] [place] [address] Platelet mean volume (Bld) [Entitic vol] 9.6 fL Normal 6.3-10.2 [facility] Comment on above: Performed By: #### 1 [id number], [id number], 6690238 #### [facility] (DEFAULT) [address] [place] [address] Platelets (Bld) [#/Vol] 286 x10 Normal 138-427 [facility] Comment on above: Performed By: #### 1 [id number], [id number], 6531534 #### [facility] (DEFAULT) [address] [place] [address]61 RBC (Bld) [#/Vol] 3.61 x10 Low 3.70-5.30 [facility] Comment on above: Performed By: #### 1 [id number], [id number], 0346990 #### [facility] (DEFAULT) [address] [place] [address] WBC (Bld) [#/Vol] 9.0 x10 [facility] Comment on above: Performed By: #### 1 [id number], [id number], [id number] #### [facility] (DEFAULT) [address] [place] [address] Education Noteon 2019 Education Note Education Materials [...] done to rule of a DVT. Normal [facility] Extra Greenon 2019 Tube Collected Yes [facility] Comment on above: Performed By: #### 1 [id number], [id number], [id number] #### [facility] (DEFAULT) [address] [place] [address] Inpatient Patient Summaryon 2019 Inpatient Patient Summary [address] [address] Patient Discharge Instructions Name: DELICIA HSU : 1935 Patient Address: [address] [place], [place] [id number] Primary Care Provider: Name: Gypsy Mcmahon MD After you are discharged if you find you have any questions, please, call [phone] ext [phone] to speak to a nurse. [...] alcohol and/or drug addiction problems; contact the [facility]on 31/08 Crisis Hotline -Text 4HYRF to 187944. If you received any narcotics, sedation, or [...] business decisions or sign any legal documents [facility] would like to thank you for allowing us to assist you with your healthcare needs. The following includes patient education materials and information regarding your injury/illness. HSU DELICIA Evangelista has been given the following list of follow-up instructions, prescriptions, and patient education materials: Follow-up Instructions With: Address: When: Mi Licea [address] [place] [id number] Business (2) 10/03/2019 8:30 AM With: Address: When: Gypsy Mcmahon [address] [place] [address] [address] [phone] Business (1) Medications During the course of your visit, your medication list was updated with the most current information. The details of those changes are reflected below: New Medications Other Medications cefuroxime (cefuroxime 250 mg oral tablet) 1 tab(s) Oral 2 times a day for 7 Days. [facility]. Medications That Were Updated - Follow Below [...] for Disease Control and Prevention October 2013 [facility] Progress Note - Nurseon 09-09 [facility] (RBC) [[facility]] Pt. transferred to bed times one [...] on: 2019 11:52 EDT] Pan Regalado RN [facility] Progress Note - Nurse Pt. reports intermittent left upper inner thigh grabbing pain. Pt. moans during these episodes. Tramadol given. Pt. repostioned for comfort. No change in the muscle spasms. Dr. Chacko informed in person. No orders received. [Electronically Signed on: 2019 09:32 EDT] Pan Regalado RN [Verified on: 2019 09:32 EDT] Pan Regalado RN [facility] Progress Note-Physicianon Progress Note-Physician DATE [...] PROGNOSIS: Good. Devorah Redd DO JOB #: [id number] [Electronically Signed on: 2019 13:04 EDT] DEVORAH REDD DO [Verified on: 2019 13:04 EDT] DEVORAH REDD DO [Transcribed on: 2019 11:05 EDT] [facility] Normal [facility] .Auto Diff 1on 09-27-2019 Auto Eaton % 9 % Normal 12 [facility] Comment on above: Performed By: #### 1 [id number], [id number], [id number] #### [facility] (DEFAULT) [address] [place] [address] Baso Abs# 0.0 x10 Normal 0.0-0.2 [facility] Comment on above: Performed By: #### 1 [id number], [id number], [id number] #### [facility] (DEFAULT) [address] [place] [address]87 Basophils/100 WBC (Bld) 0.1 % Low 0.2-2.0 [facility] Comment on above: Performed By: #### 1 [id number], [id number], [id number] #### [facility] (DEFAULT) [address] [place] [address]60 Eos Abs# 0.2 x10 Normal 0.0-0.4 [facility] Comment on above: Performed By: #### 1 [id number], [id number], 6930847 #### [facility] (DEFAULT) [address] [place] [address]158 Eosinophils/100 WBC (Bld) 1.6 % Normal 0.9-4.0 [facility] Comment on above: Performed By: #### 1 [id number], [id number], 3322430 #### [facility] (DEFAULT) [address] [place] [address] 42456 Lymphocytes (Bld) [#/Vol] 0.5 x10 Low 1.3-2.9 [facility] Comment on above: Performed By: #### 1 [id number], [id number], 8207848 #### [facility] (DEFAULT) [address] [place] [address] 80787 Lymphocytes/100 WBC (Bld) 4 % Low 14-48 [facility] Comment on above: Performed By: #### 1 [id number], [id number], [id number] #### [facility] (DEFAULT) [address] [place] [address]3512 Eaton Abs# 1.2 x10 High 0.0-0.8 [facility] Comment on above: Performed By: #### 1 [id number], [id number], 6939552 #### [facility] (DEFAULT) [address] [place] [address] 52346 Neut Abs# 11.5 x10 High 1.5-9.2 [facility] Comment on above: Performed By: #### 1 [id number], [id number], 3015530 #### [facility] (DEFAULT) [address] [place] [address] 40562 Neutrophils/100 WBC (Bld) 86 % Normal 44-88 [facility] Comment on above: Performed By: #### 1 [id number], [id number], 0776928 #### [facility] (DEFAULT) [address] [place] [address]100 C Urineon 09-27-2019 C Urine Urine Culture [...] <=4 Verified Tri/Sulf S <=2/38 Verified Normal [facility] Comment on above: Performed By: #### 7 [id number], [id number], [id number] #### [facility] (DEFAULT) [address] [place] [address] 99744 CBC w/ Auto Diffon 0 Erythrocyte distribution width (RBC) [Ratio] 14.5 % Normal 11.5-15.0 [facility] Comment on above: Performed By: #### 1 [id number], [id number], [id number] #### [facility] (DEFAULT) [address] [place] [address] 32255 Hematocrit (Bld) [Volume fraction] 39.2 % Normal 33.7-40.4 [facility] Comment on above: Performed By: #### 1 [id number], [id number], [id number] #### [facility] (DEFAULT) [address] [place] [address] Hemoglobin (Bld) [Mass/Vol] 12.8 g/dL Normal 11.3-15.9 [facility] Comment on above: Performed By: #### 1 [id number], [id number], 0274444 #### [facility] (DEFAULT) [address] [place] [address] Man Diff? Auto Normal [facility] Comment on above: Performed By: #### 1 [id number], [id number], [id number] #### [facility] (DEFAULT) [address] [place] [address] MCH (RBC) [Entitic mass] 33 pg Normal 24-34 [facility] Comment on above: Performed By: #### 1 [id number], [id number], [id number] #### [facility] (DEFAULT) [address] [place] [address] MCHC (RBC) [Mass/Vol] 33 g/dL Normal 26-37 [facility] Comment on above: Performed By: #### 1 [id number], [id number], 3814412 #### [facility] (DEFAULT) [address] [place] [address] MCV (RBC) [Entitic vol] 101 fL High 81-100 [facility] Comment on above: Performed By: #### 1 [id number], [id number], 5250903 #### [facility] (DEFAULT) [address] [place] [address] 71768 Platelet mean volume (Bld) [Entitic vol] 9.8 fL Normal 6.3-10.2 [facility] Comment on above: Performed By: #### 1 [id number], [id number], [id number] #### [facility] [place] (DEFAULT) [address] [place] [address] Platelets (Bld) [#/Vol] 266 x10 Normal 138-427 [facility] Comment on above: Performed By: #### 1 [id number], [id number], [id number] #### [facility] [place] (DEFAULT) [address] [place] [address] 55323 RBC (Bld) [#/Vol] 3.89 x10 Normal 3.70-5.30 [facility] Comment on above: Performed By: #### 1 [id number], [id number], [id number] #### [facility] [place] (DEFAULT) [address] [place] [address] 60608 WBC (Bld) [#/Vol] 13.4 x10 [facility] Comment on above: Result Comment: Slid e Reviewed Performed By: #### 1 [id number], [id number], [id number] #### [facility] [place] (DEFAULT) [address] [place] [address] 42182 Coding Summaryon 09-27-2019 Coding Summary CODING DATE: 020 FINAL [facility] STATUS: Home PAYOR: Medicare ADMIT DX: REASON [...] Lawrence Date Saved: 09/27/2019 11:11 am Normal [facility] Extra Greenon 09-27-2019 Tube Collected Yes [facility] Comment on above: Performed By: #### 1 [id number], [id number], [id number] #### [facility] [place] (DEFAULT) [address] [place] [address] 30245 Nutrition Noteon 09-27-2019 Nutrition Note Pt eating [...] [Verified on: 09/27/2019 14:01 EDT] Virgie Santos [facility] Progress Note - Nurseon 08- Progress Note - Nurse 1800 one dulcolax suppository administered, will continue to monitor. [Electronically Signed on: 09/27/2019 18:03 EDT] Luli Mclain RN [Verified on: 09/27/2019 18:03 EDT] Luli Mclain RN [facility] Progress Note - Nurse 1710 tramadol 50mg po administered for #10 left upper thigh pain , will continue to monitor. [Electronically Signed on: 09/27/2019 17:09 EDT] Luli Mclain RN [Verified on: 09/27/2019 17:09 EDT] Luli Mclain RN [facility] Progress Note-Physicianon Progress Note-Physician DATE [...] PROGNOSIS: Good. Devorah Redd DO JOB #: [id number] [Electronically Signed on: 2019 10:28 EDT] DEVORAH REDD DO [Verified on: 2019 10:28 EDT] DEVORAH REDD DO [Transcribed on: 09/27/2019 13:52 EDT] GDU Normal [facility] .Auto Diff 1on 09-26-2019 Auto Eaton % 9 % Normal 1-12 [facility] Comment on above: Performed By: #### 1 [id number], [id number], [id number] #### [facility] [place] (DEFAULT) [address] [place] [address] Baso Abs# 0.0 x10 Normal 0.0-0.2 [facility] Comment on above: Performed By: #### 1 [id number], [id number], [id number] #### [facility] [place] (DEFAULT) [address] [place] [address] Basophils/100 WBC (Bld) 0.1 % Low 0.2-2.0 [facility] Comment on above: Performed By: #### 1 [id number], [id number], [id number] #### [facility] [place] (DEFAULT) [address] [place] [address] Eos Abs# 0.2 x10 Normal 0.0-0.4 [facility] Comment on above: Performed By: #### 1 [id number], 23612711, [id number] #### [facility] [place] (DEFAULT) [address] [place] [address] Eosinophils/100 WBC (Bld) 2.0 % Normal 0.9-4.0 [facility] Comment on above: Performed By: #### 1 [id number], [id number], [id number] #### [facility] [place] (DEFAULT) [address] [place] [address] Lymphocytes (Bld) [#/Vol] 0.6 x10 Low 1.3-2.9 [facility] Comment on above: Performed By: #### 1 [id number], [id number], [id number] #### [facility] [place] (DEFAULT) [address] [place] [address] Lymphocytes/100 WBC (Bld) 6 % Low 14-48 [facility] Comment on above: Performed By: #### 1 [id number], 32055855, 2992305 #### [facility] [place] (DEFAULT) [address] [place] [address] Eaton Abs# 0.9 x10 High 0.0-0.8 [facility] Comment on above: Performed By: #### 1 [id number], 82757598, 2857639 #### [facility] [place] (DEFAULT) [address] [place] [address] Neut Abs# 8.3 x10 Normal 1.5-9.2 [facility] Comment on above: Performed By: #### 1 [id number], 90329364, 8672240 #### [facility] [place] (DEFAULT) [address] [place] [address] Neutrophils/100 WBC (Bld) 83 % Normal 44-88 [facility] Comment on above: Performed By: #### 1 [id number], 90075100, 2352308 #### [facility] [place] (DEFAULT) [address] [place] [address] Standard 09-26-2019 eGFR Non AA 48 mL/min/1.73m2 [facility] Comment on above: Performed By: #### 1 [id number], [id number], [id number] #### [facility] [place] (DEFAULT) [address] [place] [address] eGFR AA 58 mL/min/1.73m2 [facility] Comment on above: Result Comment: Mimeograph Operator kody Kidney disease could be indicated at eGFRs of less than 60 ml/min/1.73m2. Kidney Failure is indicated at less than 15 ml/min/1.73m2 Performed By: #### 1 [id number], [id number], [id number] #### [facility] [place] (DEFAULT) [address] [place] [address] Anion gap [Moles/Vol] 10.0 mmol/L Normal 5.0-19.0 [facility] Comment on above: Performed By: #### 1 [id number], [id number], [id number] #### [facility] [place] (DEFAULT) [address] [place] [address] 96918 Calcium [Mass/Vol] 8.8 mg/dL Low 8.9-10.3 [facility] Comment on above: Performed By: #### 1 [id number], 34965096, 2526939 #### [facility] [place] (DEFAULT) [address] [place] [address] 29075 Chloride [Moles/Vol] 103 mmol/L Normal 101-111 [facility] Comment on above: Performed By: #### 1 [id number], 27325585, 3174014 #### [facility] [place] (DEFAULT) [address] [place] [address] 93402 CO2 [Moles/Vol] 28 mmol/L Normal 21-32 [facility] Comment on above: Performed By: #### 1 [id number], 18123408, 2576135 #### [facility] [place] (DEFAULT) [address] [place] [address] 62257 Creatinine [Mass/Vol] 1.09 mg/dL Normal 0.60-1.30 [facility] Comment on above: Performed By: #### 1 [id number], 77875708, 9301134 #### [facility] [place] (DEFAULT) [address] [place] [address] 67182 Glucose [Mass/Vol] 94.0 mg/dL Normal 74.0-118.0 [facility] Comment on above: Performed By: #### 1 [id number], 01025939, 2351337 #### [facility] [place] (DEFAULT) [address] [place] [address] 03682 Osmolality [Osmolality] 276 mOsm/L [facility] Comment on above: Performed By: #### 1 [id number], 63066370, 5986286 #### [facility] [place] (DEFAULT) [address] [place] [address] 75548 Potassium [Moles/Vol] 4.4 mmol/L Normal 3.6-5.1 [facility] Comment on above: Performed By: #### 1 [id number], 22881756, 2363909 #### [facility] [place] (DEFAULT) [address] [place] [address] Sodium [Moles/Vol] 137.0 mmol/L Normal 136.0-144 . 0 [facility] Comment on above: Performed By: #### 1 [id number], 55353794, 4657731 #### [facility] [place] (DEFAULT) [address] [place] [address] 55277 Urea nitrogen [Mass/Vol] 19 mg/dL Normal 8-26 [facility] Comment on above: Performed By: #### 1 [id number], 55138372, 2771174 #### [facility] [place] (DEFAULT) [address] [place] [address] Urea nitrogen/Creatinine [Mass ratio] 17.0 mg/mg High 4.6-16.2 [facility] Comment on above: Performed By: #### 1 [id number], 17710126, 6821695 #### [facility] [place] (DEFAULT) [address] [place] [address] 95488 CBC w/ Auto Diffon 0 Erythrocyte distribution width (RBC) [Ratio] 14.4 % Normal 11.5-15.0 [facility] Comment on above: Performed By: #### 1 [id number], [id number], 5228924 #### [facility] [place] (DEFAULT) [address] [place] [address] 64442 Hematocrit (Bld) [Volume fraction] 35.5 % Normal 33.7-40.4 [facility] Comment on above: Performed By: #### 1 [id number], 86248021, 4793894 #### [facility] [place] (DEFAULT) [address] [place] [address] 60663 Hemoglobin (Bld) [Mass/Vol] 11.6 g/dL Normal 11.3-15.9 [facility] Comment on above: Performed By: #### 1 [id number], 36909545, 0690614 #### [facility] [place] (DEFAULT) [address] [place] [address] 82892 Man Diff? Auto Normal [facility] Comment on above: Performed By: #### 1 [id number], 96727079, 6549526 #### [facility] [place] (DEFAULT) [address] [place] [address] 98733 MCH (RBC) [Entitic mass] 33 pg Normal 24-34 [facility] Comment on above: Performed By: #### 1 [id number], 54383908, 1571517 #### [facility] [place] (DEFAULT) [address] [place] [address] 15255 MCHC (RBC) [Mass/Vol] 33 g/dL Normal 26-37 [facility] Comment on above: Performed By: #### 1 [id number], 65635260, 7015127 #### [facility] [place] (DEFAULT) [address] [place] [address] 61363 MCV (RBC) [Entitic vol] 102 fL High 81-100 [facility] Comment on above: Performed By: #### 1 [id number], 53822310, 8036186 #### [facility] [place] (DEFAULT) [address] [place] [address] 96589 Platelet mean volume (Bld) [Entitic vol] 9.8 fL Normal 6.3-10.2 [facility] Comment on above: Performed By: #### 1 [id number], 85906312, 0272345 #### [facility] [place] (DEFAULT) [address] [place] [address] 40419 Platelets (Bld) [#/Vol] 236 x10 Normal 138-427 [facility] Comment on above: Performed By: #### 1 [id number], 20928415, 3773070 #### [facility] [place] (DEFAULT) [address] [place] [address] 24350 RBC (Bld) [#/Vol] 3.49 x10 Low 3.70-5.30 [facility] Comment on above: Performed By: #### 1 [id number], 83456066, 3214743 #### [facility] [place] (DEFAULT) [address] [place] [address] 90451 WBC (Bld) [#/Vol] 10.0 x10 [facility] Comment on above: Performed By: #### 1 [id number], 09370271, 5616936 #### [facility] (DEFAULT) [address] [place] [address] Consent Formson 09-26-2019 Consent Forms [id number] Normal [facility] Consultation/Specialist Note on 09-26-2019 Consultation/Specia list [...] [Verified on: 09/26/2019 07:35 EDT] APLSUDHEER HOLLOWAY [facility] Progress Note - Nurseon 09-08 [...] on: 09/26/2019 07:45 EDT] Twila Cruz RN [facility] .Auto Diff 1on 09-25-2019 Auto Eaton % 8 % Normal 02-19 [facility] Comment on above: Performed By: #### 1 [id number], [id number], 2543009 #### [facility] [place] (DEFAULT) [address] [place] [address] Baso Abs# 0.0 x10 Normal 0.0-0.2 [facility] Comment on above: Performed By: #### 1 [id number], [id number], 5200140 #### [facility] [place] (DEFAULT) [address] [place] [address] 58865 Basophils/100 WBC (Bld) 0.2 % Normal 0.2-2.0 [facility] Comment on above: Performed By: #### 1 [id number], 33145920, 1421421 #### [facility] [place] (DEFAULT) [address] [place] [address] 10695 Eos Abs# 0.1 x10 Normal 0.0-0.4 [facility] Comment on above: Performed By: #### 1 [id number], 22699105, 8791558 #### [facility] [place] (DEFAULT) [address] [place] [address] 09458 Eosinophils/100 WBC (Bld) 0.5 % Low 0.9-4.0 [facility] Comment on above: Performed By: #### 1 [id number], 84162115, 8426899 #### [facility] [place] (DEFAULT) [address] [place] [address] 61572 Lymphocytes (Bld) [#/Vol] 1.1 x10 Low 1.3-2.9 [facility] Comment on above: Performed By: #### 1 [id number], 92366635, 2742295 #### [facility] [place] (DEFAULT) [address] [place] [address] 38077 Lymphocytes/100 WBC (Bld) 9 % Low 14-48 [facility] Comment on above: Performed By: #### 1 [id number], 76352928, 0764746 #### [facility] [place] (DEFAULT) [address] [place] [address] 03417 Eaton Abs# 1.0 x10 High 0.0-0.8 [facility] Comment on above: Performed By: #### 1 [id number], 96427847, 9814115 #### [facility] [place] (DEFAULT) [address] [place] [address] 98855 Neut Abs# 9.6 x10 High 1.5-9.2 [facility] Comment on above: Performed By: #### 1 [id number], 43392851, 8195038 #### [facility] [place] (DEFAULT) [address] [place] [address] Neutrophils/100 WBC (Bld) 82 % Normal 44-88 [facility] Comment on above: Performed By: #### 1 [id number], 90138644, 3782817 #### [facility] (DEFAULT) [address] [place] [address] ABORhon 09-25-2019 ABO and Rh group Nom (Bld) Hx Check: Not Found Anti-A: 4+ Anti-B: 0 Anti-D: 4+ DCon: NT A1: 0 B: 4+ ABORh Interp: A POS [facility] Comment on above: Performed By: #### 7 [id number], 71881287, [id number] #### [facility] [place] (DEFAULT) [address] [place] [address] ABORh Retypeon 09-25-2019 ABO and Rh group Nom (Bld) Ordered by Discern. Anti-A: 4+ Anti-B: 0 Anti-D: 4+ DCon: NT A1: 0 B: 4+ ABORh Retype: A POS [facility] Comment on above: Performed By: #### 7 [id number], [id number], [id number] #### [facility] [place] (DEFAULT) [address] [place] [address] 29227 ABSC Gelon 09-25-2019 ABSC Gel Negative Normal [facility] Comment on above: Performed By: #### 7 [id number], 70236295, [id number] #### [facility] [place] (DEFAULT) [address] [place] [address] 18713 Anesthesia Noteon 09-25-2019 Anesthesia Note Patient: DONTAE [...] risk of pressure sore / SNOMED CT 768495418 / Confirmed CAD (coronary artery disease) / SNOMED CT 57179408 / Confirmed Hyperlipidemia / SNOMED CT 34354317 / Confirmed Hypertension / SNOMED CT 5869166120 / Confirmed Skin cancer / SNOMED CT 6208955805 / Confirmed Osteoporosis / SNOMED CT 507827887 / Confirmed Restless leg syndrome / SNOMED CT 46067143 / Confirmed Resolved: GERD (gastroesophageal reflux disease) / SNOMED CT 860298724 Histories Family History: Cancer Sister Brother Aneurysm Mother CHF - Congestive heart failure Father [place] (myocardial infarction) Sister Procedure history: Umbilical hernia (0538203074). Arthroscopy (60023755). Comments: 08/29/2019 12:57 Dionne Mccarty RN arthroscopy of knee Cholecystectomy (84584237). Hysterectomy (513725666). Cataract (847000753). Shoulder (33012403). Comments: 08/29/2019 12:58 Dionne Mccarty RN arthroscopy CABG (Coronary artery bypass grafting) planned (371294160). Colonoscopy (505809635). EGD - Esophagogastroduodenoscopy (4640603761). Meniscectomy (549366326). Hip arthroplasty (568026933). Social History Electronic Cigarette/Vaping Assessment Electronic Cigarette [...] axis dev, LAFB, RV conduction delay. Plan [place] [employer] Anesthesiologists#(ASA) physical status classification: Class III. Anesthetic Preoperative Plan Anesthesia: Regional Spinal. Anesthetic plan, risks, benefits, and alternatives discussed with the patient and/or family. Patient verbalized understanding. Informed consent was given. Consent was signed by the patient. [Electronically Signed on: 09/25/2019 10:10 EDT] Enrike Mora MD [Verified on: 09/25/2019 10:10 EDT] Enrike Mora MD Normal [facility] Blood Bank IDon 09-25-2019 Blood Bank ID BBID: [id number] [facility] Comment on above: Performed By: #### 7 [id number], [id number], [id number] #### [facility] (DEFAULT) [address] [place] [address] CBC w/ Auto Diffon 0 Erythrocyte distribution width (RBC) [Ratio] 14.4 % Normal 11.5-15.0 [facility] Comment on above: Performed By: #### 1 [id number], 34823477, 6207385 #### [facility] [place] (DEFAULT) [address] [place] [address] Hematocrit (Bld) [Volume fraction] 39.2 % Normal 33.7-40.4 [facility] Comment on above: Performed By: #### 1 [id number], 58118423, 4179175 #### [facility] [place] (DEFAULT) [address] [place] [address] Hemoglobin (Bld) [Mass/Vol] 12.8 g/dL Normal 11.3-15.9 [facility] Comment on above: Performed By: #### 1 [id number], 30140592, 6467965 #### [facility] [place] (DEFAULT) [address] [place] [address] Man Diff? Auto Normal [facility] Comment on above: Performed By: #### 1 [id number], 01195756, 8137111 #### [facility] [place] (DEFAULT) [address] [place] [address] 26834 MCH (RBC) [Entitic mass] 33 pg Normal 24-34 [facility] Comment on above: Performed By: #### 1 [id number], 58991314, 7707615 #### [facility] [place] (DEFAULT) [address] [place] [address] 88071 MCHC (RBC) [Mass/Vol] 33 g/dL Normal 26-37 [facility] Comment on above: Performed By: #### 1 [id number], 49613258, 5357210 #### [facility] [place] (DEFAULT) [address] [place] [address] 40856 MCV (RBC) [Entitic vol] 102 fL High 81-100 [facility] Comment on above: Performed By: #### 1 [id number], 53410761, 9143505 #### [facility] [place] (DEFAULT) [address] [place] [address] 97537 Platelet mean volume (Bld) [Entitic vol] 9.4 fL Normal 6.3-10.2 [facility] Comment on above: Performed By: #### 1 [id number], 23999816, 7557555 #### [facility] [place] (DEFAULT) [address] [place] [address] 61201 Platelets (Bld) [#/Vol] 272 x10 Normal 138-427 [facility] Comment on above: Performed By: #### 1 [id number], 66586334, 3809346 #### [facility] [place] (DEFAULT) [address] [place] [address] 86581 RBC (Bld) [#/Vol] 3.85 x10 Normal 3.70-5.30 [facility] Comment on above: Performed By: #### 1 [id number], 29632526, 5316465 #### [facility] [place] (DEFAULT) [address] [place] [address] 62970 WBC (Bld) [#/Vol] 11.7 x10 High 3.5-10.5 [facility] Comment on above: Performed By: #### 1 [id number], 46252294, 4465170 #### [facility] [place] (DEFAULT) [address] [place] [address] 27711 Extra [place] 09-25-2019 Tube Collected Yes [facility] Comment on above: Performed By: #### 7 [id number], 13230263, [id number] #### [facility] [place] (DEFAULT) [address] [place] [address] 50226 H&Hon 09-25-2019 Hematocrit (Bld) [Volume fraction] 39.9 % Normal 33.7-40.4 [facility] Comment on above: Performed By: #### 7 [id number], 04458560, [id number] #### [facility] [place] (DEFAULT) [address] [place] [address] 47868 Hemoglobin (Bld) [Mass/Vol] 12.7 g/dL Normal 11.3-15.9 [facility] Comment on above: Performed By: #### 7 [id number], 18463207, [id number] #### [facility] [place] (DEFAULT) [address] [place] [address] 23829 History and Physicalon 09-24 History and Physical [id number] Normal [facility] MAGR Intraoperative Recordon 09-25-2019 MAGR Intraoperative Record MAGR Intra-Op Record Summary Primary Physician: Mi Licea DO Finalized Date/Time: 09/25/19 15:04:11 Pt. Name: DELICIA HSU/Sex: 1935 FEMALE Med Rec #: [id number] Physician: Mi Licea DO Financial #: [id number] Pt. Type: I Room/Bed: [facility]/ Admit/Disch: 09/25/19 06:52:00 - Institution: Case Times [...] Role Performed Surgeon - Primary Anesthesiologist of Tool And Die Assembler Record Time In 09/25/19 09:37:00 09/25/19 09:37:00 09/25/19 09:37:00 Time Out 09/25/19 11:50:00 09/25/19 11:50:00 09/25/19 11:50:00 Procedure Arthroplasty Total Arthroplasty Total Arthroplasty Total Hip(Left) Hip(Left) Hip(Left) Last Modified By: Marj Sullivan RN, Stephanie RN Sauer, Stephanie RN 09/25/19 12:54:58 09/25/19 12:54:58 09/25/19 12:54:58 Entry 4 Entry 5 Entry 6 Case Attendee Montrell MCKEON, Shantal Moreira Leigh-Ann CST Role Performed Scrub Personnel Manager Transition Manager Transition Time In 09/25/19 09:37:00 09/25/19 09:37:00 09/25/19 [...] 50MM 6.5 X 30MM 6.5 X 15MM Church Supervisor DEPUY DEPUY DEPUY Catalog # Lot Number [id number] Expiration Date 05/08/24 03/10/29 01/07/29 Serial Number [id number] REF [id number] REF [id number] Device Identifier Human Readable EDDA Machine Readable EDDA MR Class Implant Usage Data Site Hip L Hip L Hip L Quantity 1 1 1 Reason for Explant Reason Not Retained Explant Disposition Turner Off Sterility External Indicator Result Internal Indicator Results [...] BOYD Size 6.5 X 15MM 50MM PS Church Supervisor DEPUY DEPUY DEPUY Catalog # Lot Number [id number] Expiration Date 11/07/28 04/07/29 04/07/29 Serial Number REF [id number] REF [id number] REF 1246-03-000 Device Identifier Human Readable EDDA Machine Readable EDDA MR Class Implant Usage Data Site Hip L Hip L Hip L Quantity 1 1 1 Reason for Explant Reason Not Retained Explant Disposition Turner Off Sterility External Indicator Result Internal Indicator Results [...] SHORT NECK COLLAR 12/14 TAPER SIZE 11 [employer] Supervisor DE[employer] DEPUY Catalog # Lot Number [id number] Expiration Date 02/08/24 02/08/24 Serial Number REF [id number] REF 1365-22-000 Device Identifier Human Readable EDDA Machine Readable EDDA MR Class Implant Usage Data Site Hip L Hip L Quantity 1 1 Reason for Explant Reason Not Retained Explant Disposition Turner Off Sterility External Indicator Result Internal Indicator Results [...] Unfinalizing 09/25/19 15:04 MARSHA [facility] 0 MAGR PACU Record MAGR PACU Record Sum [facility] Physician: Mi Licea DO Finalized Date/Time: 09/25/19 12:53:39 Pt. Name: DELICIA HSU /Sex: 1935 FEMALE Med Rec #: [id number] Physician: Mi Licea DO Financial #: [id number] Pt. Type: I Room/Bed: 221/1 Admit/Disch: 09/25/19 06:52:00 - Institution: PACU Case Times MAGR Entry 1 In PACU I 09/25/19 11:50:00 Discharge from PACU 09/25/19 12:40:00 I Last Modified By: Dionne Yun RN 09/25/19 12:53:35 Finalized By: Dionne Yun RN Document Signatures Signed By: Dionne Yun RN 09/25/19 12:53 [facility]-17-2020 MAGR Preoperative Record MAGR Pre-Op Record Summary Primary Physician: Mi Licea DO Finalized Date/Time: 09/25/19 11:58:52 Pt. Name: DELICIA HSUO.B./Sex: 1935 FEMALE Med Rec #: [id number] Physician: Mi Licea DO Financial #: [id number] Pt. Type: I Room/Bed: 221/1 Admit/Disch: 09/25/19 [...] By: Dionne Yun RN 09/25/19 11:58 Normal [facility] Nutrition Noteon 09-25-2019 Nutrition Note Pt admitted for sche duled Lt total hip sx; placed on a Regular diet as tolerated w/ post op supplements BID along w/ usual vitamin/mineral supplementation. Nutritional supplements adjusted to what's available in house. Per tag maker assessment, Pt reports wt loss of 2-13lb, [...] to offer prunes/prune alfred q am. Normal [facility] Operative Report - Surgeon/P hung 09-25-2019 [...] on: 10/18/2019 21:39 EDT] Mi Licea DO [facility] Pharmacy Noteon 09-25-2019 Pharmacy Note [...] [Verified on: 09/25/2019 13:26 EDT] Virgie Santos [facility] Pharmacy Note I have personally [...] [Verified on: 09/25/2019 13:04 EDT] Marj Mccall [facility] Progress Note - Nurseon 08-1 [...] on: 09/25/2019 19:48 EDT] Indy Vidal RN [facility] Progress Note - Nurse Complaining [...] on: 09/25/2019 19:51 EDT] Twila Cruz RN [facility] UA [id number] 09-25-2019 RBC (U) [#/Vol] 0-2 [facility] Comment on above: Order Comment: Urina lysis Microscopic order added on by Evalve Expert Rules system. Performed By: #### 7 [id number], [id number], [id number] #### [facility] (DEFAULT) [address] [place] [address] 45442 UA Bacteria 4+ [facility] Comment on above: Order Comment: Urina lysis Microscopic order added on by Evalve Expert Rules system. Performed By: #### 7 [id number], [id number], [id number] #### [facility] (DEFAULT) [address] [place] [address] UA Squam Epi Rare [facility] Comment on above: Order Comment: Urina lysis Microscopic order added on by Eval[employer] Expert Rules system. Performed By: #### 7 [id number], [id number], [id number] #### [facility] (DEFAULT) [address] [place] [address] 08955 UA WBC 0-2 [facility] Comment on above: Order Comment: Urina lysis Microscopic order added on by Evalve Expert Rules system. Performed By: #### 7 [id number], [id number], [id number] #### [facility] (DEFAULT) [address] [place] [address] UA w Culture if Ind Standard on 09-25-2019 Breakpoint UA [facility] Comment on above: Order Comment: sim insert Performed By: #### 7 [id number], [id number], [id number] #### [facility] (DEFAULT) [address] [place] [address] 66972 Color (U) Yellow [facility] Comment on above: Order Comment: sim insert Performed By: #### 7 [id number], [id number], [id number] #### [facility] (DEFAULT) [address] [place] [address] Culture? Indicated [facility] Comment on above: Order Comment: sim insert Performed By: #### 7 [id number], [id number], [id number] #### [facility] (DEFAULT) [address] [place] [address] 09710 Glucose (U) [Mass/Vol] Negative [facility] Comment on above: Order Comment: sim insert Performed By: #### 7 [id number], [id number], [id number] #### [facility] (DEFAULT) [address] [place] [address] 40277 Ketones Ql (U) Negative [facility] Comment on above: Order Comment: sim insert Performed By: #### 7 [id number], [id number], [id number] #### [facility] (DEFAULT) [address] [place] [address] 62986 Micro? Indicated [facility] Comment on above: Order Comment: sim insert Performed By: #### 7 [id number], [id number], [id number] #### [facility] (DEFAULT) [address] [place] [address] 37490 UA Bilirubin Negative Normal [facility] Comment on above: Order Comment: sim insert Performed By: #### 7 055060, [id number], [id number] #### [facility] (DEFAULT) [address] [place] [address] 89723 UA Blood Negative Normal NEGATIVE [facility] Comment on above: Order Comment: sim insert Performed By: #### 7 [id number], [id number], [id number] #### [facility] [place] (DEFAULT) [address] [place] [address] 75384 UA Clarity CLEAR Normal CLEAR [facility] Comment on above: Order Comment: sim insert Performed By: #### 7 [id number], [id number], [id number] #### [facility] [place] (DEFAULT) [address] [place] [address] 72620 UA Leuk Est SMALL Abnormal NEGATIVE [facility] Comment on above: Order Comment: sim insert Performed By: #### 7 [id number], [id number], [id number] #### [facility] [place] (DEFAULT) [address] [place] [address] 22184 UA Nitrite Positive Abnormal NEGATIVE [facility] Comment on above: Order Comment: sim insert Performed By: #### 7 080379, [id number], [id number] #### [facility] (DEFAULT) [address] [place] [address] 87444 UA pH 7.0 Normal 5-8 [facility] Comment on above: Order Comment: sim insert Performed By: #### 7 292212, [id number], [id number] #### [facility] (DEFAULT) [address] [place] [address] 42108 UA Protein Negative Normal NEGATIVE [facility] Comment on above: Order Comment: sim insert Performed By: #### 7 074208, [id number], [id number] #### [facility] (DEFAULT) [address] [place] [address] 06592 UA Spec Grav 1.020 Normal 1.001-1.03 5 [facility] Comment on above: Order Comment: sim insert Performed By: #### 7 973493, [id number], [id number] #### [facility] (DEFAULT) [address] [place] [address] 72197 UA Urobilinogen 0.2 mg/dL Normal 0.2-1.0 [facility] Comment on above: Order Comment: sim insert Performed By: #### 7 616938, [id number], [id number] #### [facility] (DEFAULT) [address] [place] [address] 62125 Urine Source Clean Catch Normal [facility] Comment on above: Order Comment: sim insert Performed By: #### 7 852829, [id number], [id number] #### [facility] (DEFAULT) [address] [place] [address] 71092 XR Hip Complete Lefton 09-24 XR Hip [...] MD 09/25/19 3:55 pm Technologist: OCHOA NAZARIO [facility] Patient Handouton 09-24-2019 Patient Handout [facility] Progress Note - Nurseon 09-08 Progress Note - Nurse Spoke with pt regarding arrival time of 0700 and NPO status. Verbalized understanding. [Electronically Signed on: 09/22/2019 09:47 EDT] Kimberley Holden RN [Verified on: 09/22/2019 09:47 EDT] Kimberley Holden RN Normal [facility] SARS-CoV-2 (COVID-19) PCRon 09-22-2019 COVID-19 PCR Not Detected Normal Not Detected [facility] Comment on above: Performed By: #### 7 [id number], [id number], [id number] #### [facility] (DEFAULT) [address] [place] [address] Employed in healthcare? Unknown [facility] Comment on above: Performed By: #### 7 351366, [id number], [id number] #### [facility] (DEFAULT) [address] [place] [address] Group care resident? Unknown [facility] Comment on above: Performed By: #### 7 [id number], [id number], [id number] #### [facility] (DEFAULT) [address] [place] [address] Hospitalized due to COVID-19? Unknown [facility] Comment on above: Performed By: #### 7 [id number], [id number], [id number] #### [facility] (DEFAULT) [address] [place] [address] In ICU? Unknown [facility] Comment on above: Performed By: #### 7 [id number], [id number], [id number] #### [facility] (DEFAULT) [address] [place] [address] 59655 status? Unknown [facility] Comment on above: Performed By: #### 7 159609, [id number], [id number] #### [facility] (DEFAULT) [address] [place] [address] Symptomatic as defined by CDC? Unknown [facility] Comment on above: Performed By: #### 7 043044, [id number], [id number] #### [facility] (DEFAULT) [address] [place] [address] Coding Summaryon 09-13-2019 Coding Summary CODING DATE: [facility] STATUS: Home PAYOR: Medicare APC DESCRIPTION 5733 Level 3 Minor Procedures ADMIT DX: REASON FOR VISIT DX: Z01.818 Encounter for other preprocedural examination I10 Essential (primary) hypertension I25.10 Atherosclerotic heart disease of [place] coronary artery without angina pectoris FINAL DX: PRINCIPAL: Z01.818 Encounter for other preprocedural examination SECONDARY: I10 Essential (primary) hypertension I25.10 Atherosclerotic heart disease of [place] coronary artery without angina pectoris K21.9 Gastro-esophageal [...] Marisela Lawrence Date Saved: 09/13/2019 09:18 am [facility] Coding Summaryon 09-06-2019 Coding Summary CODING DATE: [facility] STATUS: Home PAYOR: Medicare APC DESCRIPTION 5733 Level 3 Minor Procedures ADMIT DX: REASON FOR VISIT DX: Z01.818 Encounter for other preprocedural examination I10 Essential (primary) hypertension I25.10 Atherosclerotic heart disease of [place] coronary artery without angina pectoris FINAL DX: PRINCIPAL: Z01.818 Encounter for other preprocedural examination SECONDARY: I10 Essential (primary) hypertension I25.10 Atherosclerotic heart disease of [place] coronary artery without angina pectoris K21.9 Gastro-esophageal reflux disease without esophagitis PYMT PROC APC STAT DESCRIPTION DOCTOR NAME DATE NOTE: The code number assigned matches the documented diagnosis and / or procedure in the patient's chart. However, the narrative phrase printed from the coding software may appear abbreviated, or result in slightly different terminology. Coded By: Marisela Lawrence Date Saved: 09/06/2019 09:20 am [facility] Progress Note - Nurseon 08-09 Progress Note - Nurse chart reviewed per Dr Akbar anesthesiologist, and cleared for surgery on 09/25/2019 [Electronically Signed on: 09/04/2019 14:30 EDT] Nimco Albarado RN [Verified on: 09/04/2019 14:30 EDT] Nimco Albarado RN [facility] Progress Note - Nurse Xin at Dr PerrinVinayak notified that pt has positive urine culture. [Electronically Signed on: 09/04/2019 13:37 EDT] Dionne Yun RN [Verified on: 09/04/2019 13:37 EDT] Dionne Yun RN [facility] Provider Orderson 09-04-2019 Provider Orders [id number] [facility] C Urineon 09-03-2019 C Urine [...] <=4 Verified Tri/Sulf S <=2/38 Verified Normal [facility] Comment on above: Performed By: #### 1 [id number], [id number], [id number] #### [facility] (DEFAULT) [address] [place] [address] C MRSA Screenon 09-02-2019 C MRSA Screen Negative Normal [facility] Comment on above: Performed By: #### 1 [id number] #### [facility] (DEFAULT) [address] [place] [address] .Auto Diff 1on 09-01-2019 Auto [place] % 10 % Normal -12 [facility] Comment on above: Performed By: #### 7 837607, [id number], [id number] #### [facility] (DEFAULT) [address] [place] [address] Baso Abs# 0.0 x10 Normal 0.0-0.2 [facility] Comment on above: Performed By: #### 7 950397, [id number], [id number] #### [facility] (DEFAULT) [address] [place] [address] Basophils/100 WBC (Bld) 0.3 % Normal 0.2-2.0 [facility] Comment on above: Performed By: #### 7 570619, [id number], [id number] #### [facility] (DEFAULT) [address] [place] [address] Eos Abs# 0.1 x10 Normal 0.0-0.4 [facility] Comment on above: Performed By: #### 7 265553, [id number], [id number] #### [facility] (DEFAULT) [address] [place] [address] Eosinophils/100 WBC (Bld) 0.9 % Normal 0.9-4.0 [facility] Comment on above: Performed By: #### 7 105216, [id number], [id number] #### [facility] (DEFAULT) [address] [place] [address] 76616 Lymphocytes (Bld) [#/Vol] 1.0 x10 Low 1.3-2.9 [facility] Comment on above: Performed By: #### 7 877947, 12580144, [id number] #### [facility] (DEFAULT) [address] [place] [address] 13462 Lymphocytes/100 WBC (Bld) 10 % Low 14-48 [facility] Comment on above: Performed By: #### 7 021498, 78757429, [id number] #### [facility] (DEFAULT) [address] [place] [address] Eaton Abs# 1.0 x10 High 0.0-0.8 [facility] Comment on above: Performed By: #### 7 751443, [id number], [id number] #### [facility] (DEFAULT) [address] [place] [address] Neut Abs# 8.0 x10 Normal 1.5-9.2 [facility] Comment on above: Performed By: #### 7 701574, 64908060, [id number] #### [facility] (DEFAULT) [address] [place] [address] Neutrophils/100 WBC (Bld) 79 % Normal 44-88 [facility] Comment on above: Performed By: #### 7 234128, 18871540, [id number] #### [facility] (DEFAULT) [address] [place] [address] Standardon 09-01-2019 eGFR Non AA 44 mL/min/1.73m2 [facility] Comment on above: Performed By: #### 7 533333, [id number], [id number] #### [facility] (DEFAULT) [address] [place] [address] eGFR AA 54 mL/min/1.73m2 [facility] Comment on above: Result Comment: Mimeograph Operator kody Kidney disease could be indicated at eGFRs of less than 60 ml/min/1.73m2. Kidney Failure is indicated at less than 15 ml/min/1.73m2 Performed By: #### 7 445628, [id number], [id number] #### [facility] (DEFAULT) [address] [place] [address] 34460 Anion gap [Moles/Vol] 15.0 mmol/L Normal 5.0-19.0 [facility] Comment on above: Performed By: #### 7 256768, [id number], [id number] #### [facility] (DEFAULT) [address] [place] [address] 08196 Calcium [Mass/Vol] 9.2 mg/dL Normal 8.9-10.3 [facility] Comment on above: Performed By: #### 7 265804, [id number], [id number] #### [facility] (DEFAULT) [address] [place] [address] 37629 Chloride [Moles/Vol] 101 mmol/L Normal 101-111 [facility] Comment on above: Performed By: #### 7 400091, 97077193, [id number] #### [facility] (DEFAULT) [address] [place] [address] 65945 CO2 [Moles/Vol] 25 mmol/L Normal 21-32 [facility] Comment on above: Performed By: #### 7 836525, 95174249, [id number] #### [facility] (DEFAULT) [address] [place] [address] 43497 Creatinine [Mass/Vol] 1.17 mg/dL Normal 0.60-1.30 [facility] Comment on above: Performed By: #### 7 338803, 52126517, [id number] #### [facility] (DEFAULT) [address] [place] [address] 64149 Glucose [Mass/Vol] 94.0 mg/dL Normal 74.0-118.0 [facility] Comment on above: Performed By: #### 7 870871, 74439872, [id number] #### [facility] (DEFAULT) [address] [place] [address] 59576 Osmolality [Osmolality] 276 mOsm/L [facility] Comment on above: Performed By: #### 7 424250, 67406144, [id number] #### [facility] (DEFAULT) [address] [place] [address] 63779 Potassium [Moles/Vol] 4.0 mmol/L Normal 3.6-5.1 [facility] Comment on above: Performed By: #### 7 127363, 08796075, [id number] #### [facility] (DEFAULT) [address] [place] [address] 14932 Sodium [Moles/Vol] 137.0 mmol/L Normal 136.0-144 . 0 [facility] Comment on above: Performed By: #### 7 695714, 55529679, [id number] #### [facility] (DEFAULT) [address] [place] [address] Urea nitrogen [Mass/Vol] 20 mg/dL Normal 8-26 [facility] Comment on above: Performed By: #### 7 485955, 90351677, [id number] #### [facility] (DEFAULT) [address] [place] [address] Urea nitrogen/Creatinine [Mass ratio] 17.0 mg/mg High 4.6-16.2 [facility] Comment on above: Performed By: #### 7 945037, [id number], [id number] #### [facility] (DEFAULT) [address] [place] [address] 19605 CBC w/ Auto Diffon 0 Erythrocyte distribution width (RBC) [Ratio] 13.9 % Normal 11.5-15.0 [facility] Comment on above: Performed By: #### 7 941895, 83760232, [id number] #### [facility] (DEFAULT) [address] [place] [address] 13850 Hematocrit (Bld) [Volume fraction] 38.5 % Normal 33.7-40.4 [facility] Comment on above: Performed By: #### 7 356812, 49413639, [id number] #### [facility] (DEFAULT) [address] [place] [address] 18644 Hemoglobin (Bld) [Mass/Vol] 12.6 g/dL Normal 11.3-15.9 [facility] Comment on above: Performed By: #### 7 339721, 93590570, [id number] #### [facility] (DEFAULT) [address] [place] [address] 25502 Man Diff? Auto Normal [facility] Comment on above: Performed By: #### 7 414535, 45694671, [id number] #### [facility] (DEFAULT) [address] [place] [address] 06879 MCH (RBC) [Entitic mass] 33 pg Normal 24-34 [facility] Comment on above: Performed By: #### 7 421260, 38665306, [id number] #### [facility] (DEFAULT) [address] [place] [address] 76907 MCHC (RBC) [Mass/Vol] 33 g/dL Normal 26-37 [facility] Comment on above: Performed By: #### 7 638290, 34522499, [id number] #### [facility] (DEFAULT) [address] [place] [address] 90446 MCV (RBC) [Entitic vol] 101 fL High 81-100 [facility] Comment on above: Performed By: #### 7 352162, 94292385, [id number] #### [facility] (DEFAULT) [address] [place] [address] 06251 Platelet mean volume (Bld) [Entitic vol] 9.5 fL Normal 6.3-10.2 [facility] Comment on above: Performed By: #### 7 219347, 69143512, [id number] #### [facility] (DEFAULT) [address] [place] [address] 13011 Platelets (Bld) [#/Vol] 292 x10 Normal 138-427 [facility] Comment on above: Performed By: #### 7 449693, [id number], [id number] #### [facility] (DEFAULT) [address] [place] [address] 86989 RBC (Bld) [#/Vol] 3.82 x10 Normal 3.70-5.30 [facility] Comment on above: Performed By: #### 7 085797, 25059848, [id number] #### [facility] (DEFAULT) [address] [place] [address] WBC (Bld) [#/Vol] 10.1 x10 Normal 3.5-10.5 [facility] Comment on above: Performed By: #### 7 784448, 15499171, [id number] #### [facility] (DEFAULT) [address] [place] [address] UA [id number] 09-01-2019 RBC (U) [#/Vol] None Seen [facility] Comment on above: Order Comment: Urina lysis Microscopic order added on by [employer] Expert Rules system. Performed By: #### 1 [id number], [id number], [id number] #### [facility] (DEFAULT) [address] [place] [address] UA Amorph. 1+ [facility] Comment on above: Order Comment: Urina lysis Microscopic order added on by [employer] Rules system. Performed By: #### 1 [id number], [id number], [id number] #### [facility] (DEFAULT) [address] [place] [address] UA Bacteria 4+ [facility] Comment on above: Order Comment: Urina lysis Microscopic order added on by [employer] Rules system. Performed By: #### 1 [id number], [id number], [id number] #### [facility] (DEFAULT) [address] [place] [address] UA Squam Epi Moderate Normal [facility] Comment on above: Order Comment: Urina lysis Microscopic order added on by [employer] Rules system. Performed By: #### 1 [id number], [id number], [id number] #### [facility] (DEFAULT) [address] [place] [address] UA WBC 15-20 [facility] Comment on above: Order Comment: Urina lysis Microscopic order added on by [employer] Rules system. Performed By: #### 1 [id number], [id number], [id number] #### [facility] (DEFAULT) [address] [place] [address] UA w Culture if Ind Standard on 09-01-2019 Breakpoint UA [facility] Comment on above: Performed By: #### 1 [id number], [id number], [id number] #### [facility] (DEFAULT) [address] [place] [address] Color (U) Yellow Normal [facility] Comment on above: Performed By: #### 1 [id number], [id number], [id number] #### [facility] (DEFAULT) [address] [place] [address] Culture? Yes Normal [facility] Comment on above: Performed By: #### 1 [id number], [id number], [id number] #### [facility] (DEFAULT) [address] [place] [address] Glucose (U) [Mass/Vol] Negative [facility] Comment on above: Performed By: #### 1 [id number], [id number], [id number] #### [facility] (DEFAULT) [address] [place] [address] Ketones Ql (U) Negative [facility] Comment on above: Performed By: #### 1 [id number], [id number], [id number] #### [facility] (DEFAULT) [address] [place] [phone] Micro? Indicated [facility] Comment on above: Performed By: #### 1 [id number], [id number] #### [facility] (DEFAULT) [address] [place] [phone] UA Bilirubin Negative Normal [facility] Comment on above: Performed By: #### 1 [id number], [id number], [id number] #### [facility] (DEFAULT) [address] [place] [id number] UA Blood TRACE Abnormal NEGATIVE [facility] Comment on above: Performed By: #### 1 [id number], [id number] #### [facility] (DEFAULT) [address] [place] [address] UA Clarity CLEAR Normal CLEAR [facility] Comment on above: Performed By: #### 1 [id number], [id number], [id number] #### [facility] (DEFAULT) [address] [place] [address]551 UA Leuk Est MODERATE Abnormal NEGATIVE [facility] Comment on above: Performed By: #### 1 [id number], [id number], [id number] #### [facility] (DEFAULT) [address] [place] [phone] UA Nitrite Positive Abnormal NEGATIVE [facility] Comment on above: Performed By: #### 1 [id number], [id number], [id number] #### [facility] (DEFAULT) [address] [place] [address]014 UA pH 5.5 Normal 5-8 [facility] Comment on above: Performed By: #### 1 [id number], [id number] #### [facility] [place] (DEFAULT) [address] [place] [address] 18698 UA Protein Negative Normal NEGATIVE [facility] Comment on above: Performed By: #### 1 [id number], [id number], [id number] #### [facility] (DEFAULT) [address] [place] [address] UA Spec Grav 1.025 Normal 1.001-1.[address] [place] [address] Comment on above: Performed By: #### 1 [id number], [id number] #### [facility] (DEFAULT) [address] [place] [address] 39579 UA Urobilinogen 0.2 mg/dL Normal 0.2-1.0 [facility] Comment on above: Performed By: #### 1 [id number], [id number], [id number] #### [facility] (DEFAULT) [address] [place] [address]16 Urine Source Clean Catch Normal [facility] Comment on above: Performed By: #### 1 [id number], [id number], [id number] #### [facility] (DEFAULT) [address] [place] [address] JOINT PAIN INJECTIONon 09-06 JOINT PAIN INJECTION [facility] Department of Radiology [address] [place] [id number] Patient Name: DELICIA HSU : 1935 Sex: F Age: Race: White Pt. Location: 84 Patient Status: D Ordered Date: 08/08/2018 3:50:00 PM Completed Date: 09/06/2018 03:43 PM Requesting Provider: HERMELINDO HILLMAN Attending Provider: HERMELINDO HILLMAN Report Copy To: GYPSY MCMAHON Signs & Symptoms: M16.12 Unilateral primary osteoarthritis, left hip I10 History: [place] Comments: , Dr. Ochoa , Body Part: [...] guidance. Electronically signed by:Christy Ochoa. Transcribed by: [email or web address], User Resident: Electronically Signed by: CHRISTY OCHOA @ 09/09/2018 05:57 PM Normal [facility] Comment on above: Order Comment: , Dr. Ochoa , Body Part: Hip , Side: LEFT , Dr. Ochoa , Body Part: Hip , Side: LEFT , , , Ordering Provider - HERMELINDO HILLMAN MD , CT 3D LOWER EXTREMITY WO CON TRAST LEFTon 08-02-2018 CT 3D LOWER EXTREMITY WO CONTRAST LEFT [facility] Department of Radiology [address] [place] [phone] Patient Name: DELICIA HSU : 1935 Sex: F Age: Race: White Pt. 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 MEDICARE NO PC REQ [...] arthritis. Electronically signed by:Coy Jerome. Transcribed by: [email or web address], User Resident: Electronically Signed by: COY JEROME @ 08/08/2018 02:20 PM Normal [facility] Comment on above: Order Comment: , Jessie perkins left hip healing HIP LEFT 1 OR 2 VWS WITH PEL VISon 03-18-2018 HIP LEFT 1 OR 2 VWS WITH PELVIS [facility] Department of Radiology [address] [place] [phone] Patient Name: DELICIA HSU : 1935 Sex: F Age: Race: White Pt. 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 Transcribed by: [email or web address], User Resident: Electronically Signed by: COY JEROME @ 03/18/2018 02:19 PM Normal [facility] Comment on above: Order Comment: , , = ========= , Ordering Provider - MIRTHA VELÁSQUEZ PA-C , HIP LEFT 1 OR 2 VWS WITH PEL VISon 01-10-2018 HIP LEFT 1 OR 2 VWS WITH PELVIS [facility] Department of Radiology [address] [place] [phone] Patient Name: DELICIA HSU : 1935 [...] arthritis. Electronically signed by:Manjit Whatley. Transcribed by: [email or web address], User Resident: Electronically Signed by: MANJIT WHATLEY @ 01/10/2018 04:38 PM Normal [facility] Comment on above: Order Comment: , Carmella ws (X-RAY, HIP): Radiologic Protocol , Views (X-RAY, HIP): Radiologic Protocol , , , Ordering Rebeka MORENO-C , HIP LEFT 1 OR 2 VWS WITH PEL VISon 11-01-2017 HIP LEFT 1 OR 2 VWS WITH PELVIS [facility] Department of Radiology [address] [place] [address] Patient Name: DELICIA HSU : 1935 Sex: F Age: Race: White Pt. 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 Electronically signed by:Gerson Rodriguez. Transcribed by: [email or web address], User Resident: Electronically Signed by: GERSON RODRIGUEZ @ 11/01/2017 03:25 PM Normal [facility] Comment on above: Order Comment: , Caremlla ws (X-RAY, HIP): Radiologic Protocol , Views (X-RAY, HIP): Radiologic Protocol , , , Ordering Provider - MIRTHA VELÁSQUEZ PA-C , HIP LEFT 1 OR 2 VWS WITH PEL VISon 09-21-2017 HIP LEFT 1 OR 2 VWS WITH PELVIS [facility] Department of Radiology [address] [place] [phone] Patient Name: DELICIA HSU : 1935 Sex: F Age: Race: White Pt. 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 Transcribed by: [email or web address], User Resident: Electronically Signed by: COY JEROME @ 09/21/2017 03:27 PM Normal [facility] Comment on above: Order Comment: , , = ========= , Ordering Provider - MIRTHA VELÁSQUEZ PA-C , Vital Signs Date Time Vital Sign Value Performing Clinician Facility 05-05-2023 16:40-0400 Diastolic blood pressure 71 mm[Hg] MD Jacinto Max Work Phone: [facility] 05-05-2023 16:40-0400 Systolic blood pressure 170 mm[Hg] MD Jacinto Max Work Phone: [facility] 05-05-2023 16:36-0400 Body height 177.8 cm MD Jacinto Max Work Phone: [facility] 05-05-2023 16:36-0400 Body temperature 98.1 [degF] MD Jacinto Max Work Phone: [facility] 05-05-2023 16:36-0400 Body weight 59.87 kg MD Jacinto Max Work Phone: [facility] 05-05-2023 16:36-0400 Heart rate 71 /min MD Jacinto Max Work Phone: [facility] 05-05-2023 16:36-0400 Respiratory rate 18 /min MD Jacinto Max Work Phone: [facility] 05-05-2023 16:36-0400 SaO2% (BldA) [Mass fraction] 98 % MD Jacinto Max Work Phone: [facility] 04-15-2023 13:30-0500 Body height 167.64 cm MD Jacinto Max Work Phone: [facility] 04-15-2023 13:30-0500 Body mass index (BMI) [Ratio] 20.8 kg/m2 MD Jacinto Max Work Phone: [facility] 04-15-2023 13:30-0500 Body temperature 97.2 [degF] MD Jacinto Max Work Phone: [facility] 04-15-2023 13:30-0500 Body weight 58.57 kg MD Jacinto Max Work Phone: [facility] 04-15-2023 13:30-0500 Diastolic blood pressure 75 mm[Hg] MD Jacinto Max Work Phone: [facility] 04-15-2023 13:30-0500 Heart rate 60 /min MD Jacinto Max Work Phone: [facility] 04-15-2023 13:30-0500 Systolic blood pressure 165 mm[Hg] MD Jacinto Max Work Phone: [facility] 02-26-2023 10:00-0500 Body height 167.64 cm MD Jacinto Max Work Phone: [facility] 02-26-2023 10:00-0500 Diastolic blood pressure 76 mm[Hg] MD Jacinto Max Work Phone: [facility] 02-26-2023 10:00-0500 Systolic blood pressure 156 mm[Hg] MD Jacinto Max Work Phone: [facility] 02-25-2023 10:15-0500 Body height 175.26 cm MD Jacinto Max Work Phone: [facility] 02-25-2023 10:15-0500 Body weight 59.1 kg MD Jacinto Max Work Phone: [facility] 02-25-2023 10:02-0500 Diastolic blood pressure 74 mm[Hg] MD Jacinto Max Work Phone: [facility] 02-25-2023 10:02-0500 Heart rate 67 /min MD Jacinto aMx Work Phone: [facility] 02-25-2023 10:02-0500 Systolic blood pressure 157 mm[Hg] MD Jacinto Max Work Phone: [facility] 02-18-2023 14:00-0500 Body height 167.64 cm Jacinto Max Other [facility] 02-18-2023 14:00-0500 Body mass index (BMI) [Ratio] 20.66 kg/m2 Jacinto Max Other [facility] Other 02-18-2023 14:00-0500 Body temperature 97.2 [degF] Jacinto Max Other [facility] Other 02-18-2023 14:00-0500 Body weight 58.06 kg Jacinto Max Other [facility] Other 02-18-2023 14:00-0500 Body weight 58.05 kg MD Jacinto Max Work Phone: [facility] 02-18-2023 14:00-0500 Diastolic blood pressure 66 mm[Hg] Jacinto Max Other [facility] 02-18-2023 14:00-0500 Systolic blood pressure 150 mm[Hg] Jacinto Henson [facility] 02-16-2023 13:30-0500 Body height 167.64 cm Gypsy Mcmahon Other [facility] 02-16-2023 13:30-0500 Body mass index (BMI) [Ratio] 20.66 kg/m2 Gypsy Mcmahon Other [facility] Other 02-16-2023 13:30-0500 Body weight 58.06 kg Gypsy Mcmahon Other [facility] Other 02-16-2023 13:30-0500 Body weight 58.05 kg MD Jacinto Max Work Phone: [facility] 02-16-2023 13:30-0500 Diastolic blood pressure 68 mm[Hg] Gypsy Mcmahon Other [facility] 02-16-2023 13:30-0500 SaO2% (BldA) [Mass fraction] 96 % Gypsy Mcmahon Other [facility] Other 02-16-2023 13:30-0500 Systolic blood pressure 140 mm[Hg] Gypsy Mcmahon Other [facility] 02-04-2023 09:09-0500 Heart rate 84 /min MALATHI DEB [facility] 02-04-2023 09:09-0500 SaO2% (BldA) [Mass fraction] 95 % MALATHI DEB [facility] 02-04-2023 09:08-0500 Diastolic blood pressure 88 mm[Hg] MALATHI DEB [facility] 02-04-2023 09:08-0500 Mean blood pressure 121 mm[Hg] MALATHI DEB [facility] 02-04-2023 09:08-0500 Systolic blood pressure 188 mm[Hg] MALATHI DEB [facility] 02-04-2023 09:08-0500 Respiratory rate 20 /min MALATHI DEB [facility] 02-04-2023 09:08-0500 Body temperature 97.7 [degF] MALATHI DEB [facility] 02-03-2023 09:15-0500 Heart rate 77 /min MALATHI DEB [facility] 02-03-2023 09:15-0500 SaO2% (BldA) [Mass fraction] 97 % MALATHI DEB [facility] 02-03-2023 09:14-0500 Respiratory rate 18 /min MALATHI DEB [facility] 02-03-2023 09:14-0500 Diastolic blood pressure 97 mm[Hg] MALATHI DEB [facility] 02-03-2023 09:14-0500 Mean blood pressure 130 mm[Hg] MALATHI DEB [facility] 02-03-2023 09:14-0500 Systolic blood pressure 197 mm[Hg] MALATHI DEB [facility] 02-03-2023 09:13-0500 Body temperature 98.06 [degF] MALATHI DEB [facility] 02-02-2023 09:10-0500 Heart rate 75 /min MALATHI DEB [facility] 02-02-2023 09:10-0500 SaO2% (BldA) [Mass fraction] 93 % MALATHI DEB [facility] 02-02-2023 09:09-0500 Respiratory rate 20 /min MALATHI DEB [facility] 02-02-2023 09:08-0500 Diastolic blood pressure 87 mm[Hg] MALATHI DEB [facility] 02-02-2023 09:08-0500 Mean blood pressure 123 mm[Hg] MALATHI DEB [facility] 02-02-2023 09:08-0500 Systolic blood pressure 194 mm[Hg] MALATHI DEB [facility] 02-02-2023 09:08-0500 Body temperature 97.7 [degF] MALATHI DEB [facility] 02-01-2023 09:50-0500 Heart rate 77 /min MALATHI DEB [facility] 02-01-2023 09:50-0500 Mean blood pressure 115 mm[Hg] MALATHI DEB [facility] 02-01-2023 09:10-0500 Heart rate 84 /min MALATHI DEB [facility] 01-29-2023 11:26-0500 Heart rate 75 /min MALATHI DEB [facility] 01-29-2023 11:26-0500 SaO2% (BldA) [Mass fraction] 95 % MALATHI DEB [facility] 01-29-2023 11:26-0500 Respiratory rate 16 /min MALATHI DEB [facility] 01-29-2023 11:25-0500 Diastolic blood pressure 83 mm[Hg] MALATHI DEB [facility] 12-22-2023 11:25-0500 Mean blood pressure 108 mm[Hg] MALATHI DEB [facility] 01-29-2023 11:25-0500 Systolic blood pressure 158 mm[Hg] MALATHI DEB [facility] 01-29-2023 11:25-0500 Body temperature 98.06 [degF] MALATHI DEB [facility] 01-29-2023 10:54-0500 Heart rate 74 /min MALATHI DEB [facility] 01-29-2023 10:54-0500 SaO2% (BldA) [Mass fraction] 97 % MALATHI DEB [facility] 01-29-2023 10:54-0500 Respiratory rate 16 /min MALATHI DEB [facility] 01-29-2023 10:53-0500 Body temperature 97.52 [degF] MALATHI DEB [facility] 01-29-2023 10:53-0500 Diastolic blood pressure 84 mm[Hg] MALATHI DEB [facility] 01-29-2023 10:53-0500 Mean blood pressure 104 mm[Hg] MALATHI DEB [facility] 01-29-2023 10:53-0500 Systolic blood pressure 146 mm[Hg] MALATHI DEB [facility] 01-12-2023 13:30-0500 Body height 167.64 cm Hunter Brown Other [facility] Other 01-12-2023 13:30-0500 Body mass index (BMI) [Ratio] 22 kg/m2 Hunter Brown Other [facility] Other 01-12-2023 13:30-0500 Body weight 61.83 kg Hunter Brown Other [facility] Other 01-12-2023 13:30-0500 Diastolic blood pressure 60 mm[Hg] Hunter Brown Other [facility] Other 01-12-2023 13:30-0500 Systolic blood pressure 137 mm[Hg] Hunter Brown Other [facility] Other 01-05-2023 11:30-0500 Body height 167.64 cm Gypsy Mcmahon Other [facility] Other 01-05-2023 11:30-0500 Body mass index (BMI) [Ratio] 21.63 kg/m2 Gypsy Mcmahon Other [facility] Other 01-05-2023 11:30-0500 Body weight 60.78 kg Gypsy Mcmahon Other [facility] Other 01-05-2023 11:30-0500 Diastolic blood pressure 72 mm[Hg] Gypsy Mcmahon Other [facility] Other 01-05-2023 11:30-0500 Systolic blood pressure 162 mm[Hg] Gypsy Mcmahon Other [facility] Other 12-28-2022 13:30-0500 Body height 167.64 cm Malathi Velázquez Other [facility] Other 12-28-2022 13:30-0500 Body mass index (BMI) [Ratio] 19.98 kg/m2 Malathi Velázquez Other [facility] Other 12-28-2022 13:30-0500 Body weight 56.16 kg Malathi Hoodinez Other [facility] Other 12-28-2022 13:30-0500 Diastolic blood pressure 78 mm[Hg] Malathi Melania Other [facility] Other 12-28-2022 13:30-0500 Systolic blood pressure 146 mm[Hg] Malathi Melania Other [facility] Other 12-15-2022 11:15-0500 Body height 167.64 cm Gypsy Mcmahon Other [facility] Other 12-15-2022 11:15-0500 Body mass index (BMI) [Ratio] 21.53 kg/m2 Gypsy Mcmahon Other [facility] Other 12-15-2022 11:15-0500 Body weight 60.51 kg Gypsy Mcmahon Other [facility] Other 12-15-2022 11:15-0500 Diastolic blood pressure 73 mm[Hg] Gypsy Mcmahon Other [facility] Other 12-15-2022 11:15-0500 Systolic blood pressure 178 mm[Hg] Gypsy Mcmahon Other [facility] Other 09-22-2022 14:14-0400 Blood Pressure Location MALATHI VIEIRA [facility] 09-22-2022 14:14-0400 Diastolic blood pressure 90 mm[Hg] MALATHI VIEIRA [facility] 09-22-2022 14:14-0400 Heart rate 78 /min MALATHI VIEIRA [facility] 09-22-2022 14:14-0400 Systolic blood pressure 142 mm[Hg] MALATHI VIEIRA [facility] 09-01-2022 14:15-0400 Body height 167.64 cm Gypsy Mcmahon Other [facility] Other 09-01-2022 14:15-0400 Body mass index (BMI) [Ratio] 21.14 kg/m2 Gypsy Mcmahon Other [facility] Other 09-01-2022 14:15-0400 Body weight 59.42 kg Gypsy Mcmahon Other [facility] Other 09-01-2022 14:15-0400 Diastolic blood pressure 56 mm[Hg] Gypsy Mcmahon Other [facility] Other 09-01-2022 14:15-0400 Systolic blood pressure 132 mm[Hg] Gypsy Mcmahon Other [facility] Other 06-09-2022 13:42-0400 Diastolic blood pressure 71 mm[Hg] Marvin KWON [facility] 06-09-2022 13:42-0400 Heart rate 59 /min Marvin KWON [facility] 06-09-2022 13:42-0400 Systolic blood pressure 183 mm[Hg] Marvin KWON [facility] 04-24-2022 11:30-0400 Body height 167.64 cm Hunter Brown Other [facility] Other 04-24-2022 11:30-0400 Body mass index (BMI) [Ratio] 22.11 kg/m2 Hunter Brown Other [facility] Other 04-24-2022 11:30-0400 Body weight 62.14 kg Hunter Brown Other [facility] Other 04-24-2022 11:30-0400 Diastolic blood pressure 70 mm[Hg] Hunter Brown Other [facility] Other 04-24-2022 11:30-0400 Systolic blood pressure 159 mm[Hg] Hunter Brown Other [facility] Other 04-07-2022 14:15-0500 Body height 167.64 cm Gypsy Mcmahon Other [facility] Other 04-07-2022 14:15-0500 Body mass index (BMI) [Ratio] 21.79 kg/m2 Gypsy Mcmahon Other [facility] Other 04-07-2022 14:15-0500 Body weight 61.24 kg Gypsy Mcmahon Other [facility] Other 04-07-2022 14:15-0500 Diastolic blood pressure 62 mm[Hg] Gypsy Mcmahon Other [facility] Other 04-07-2022 14:15-0500 Systolic blood pressure 130 mm[Hg] Gypsy Mcmahon Other [facility] Other 03-11-2022 13:35-0500 Body temperature 97.5 [degF] MD Gypsy Mcmahon Work Phone: [facility] 03-11-2022 13:35-0500 Diastolic blood pressure 61 mm[Hg] MD Gypsy Mcmahon Work Phone: [facility] 03-11-2022 13:35-0500 Heart rate 60 /min MD Gypsy Mcmahon Work Phone: [facility] 03-11-2022 13:35-0500 Respiratory rate 18 /min MD Gypsy Mcmahon Work Phone: [facility] 03-11-2022 13:35-0500 SaO2% (BldA) [Mass fraction] 96 % MD Gypsy Mcmahon Work Phone: [facility] 03-11-2022 13:35-0500 Systolic blood pressure 135 mm[Hg] MD Gypsy Mcmahon Work Phone: [facility] 02-16-2022 10:45-0500 Body height 167.64 cm Gypsy Mcmahon Other [facility] Other 02-16-2022 10:45-0500 Body mass index (BMI) [Ratio] 21.46 kg/m2 Gypsy Mcmahon Other [employer] [facility] Other 02-16-2022 10:45-0500 Body weight 60.33 kg Gypsy Mcmahon Other [facility] Other 02-16-2022 10:45-0500 Diastolic blood pressure 70 mm[Hg] Gypsy Mcmahon Other [facility] Other 02-16-2022 10:45-0500 Systolic blood pressure 120 mm[Hg] Gypsy Mcmahon Other [facility] Other 02-11-2022 12:00-0500 Body height 172.72 cm Hunter Brown Other [facility] Other 02-11-2022 12:00-0500 Body mass index (BMI) [Ratio] 20.83 kg/m2 Hunter Brown Other [facility] Other 02-11-2022 12:00-0500 Body weight 62.14 kg Hunter Brown Other [facility] Other 02-11-2022 12:00-0500 Diastolic blood pressure 68 mm[Hg] Hunter Brown Other [facility] Other 02-11-2022 12:00-0500 Systolic blood pressure 144 mm[Hg] Hunter Brown Other [facility] Other 01-05-2022 10:30-0500 Body height 172.72 cm Hunter Brown Other [facility] Other 01-05-2022 10:30-0500 Body mass index (BMI) [Ratio] 22.04 kg/m2 Hunter Brown Other [facility] Other 01-05-2022 10:30-0500 Body weight 65.77 kg Hunter Brown Other [facility] Other 01-05-2022 10:30-0500 Diastolic blood pressure 78 mm[Hg] Hunter Brown Other [facility] Other 01-05-2022 10:30-0500 Systolic blood pressure 166 mm[Hg] Hunter Brown Other [facility] Other 03-27-2021 12:00-0500 Body height 172.72 cm Giana Griffiths Other [employer] Other 03-27-2021 12:00-0500 Body mass index (BMI) [Ratio] 22.96 kg/m2 Giana Griffiths Other [employer] Other 03-27-2021 12:00-0500 Body weight 68.49 kg Giana Griffiths Other [facility] Other 01-27-2021 10:45-0500 Body height 172.72 cm Giana Griffiths Other [facility] Other 01-27-2021 10:45-0500 Body mass index (BMI) [Ratio] 24.48 kg/m2 Giana Griffiths Other [facility] Other 01-27-2021 10:45-0500 Body weight 73.03 kg Giana Griffiths Other [employer] Other Encounters Encounter Date Encounter Type Care Provider Facility Start: 05-05-2023 End: 05-05-2023 Emergency department patient visit Marvin Garcia Facility:[facility] Start: 05-05-2023 End: 05-05-2023 Emergency department patient visit MD Jacinto Max Work Phone: [facility]-Emergency Room Work Phone: Start: 05-01-2023 Non-patient / Non-visit MD Jacinto Max Work Phone: [facility] Physician [facility] Work Phone: Start: 04-15-2023 End: 04-15-2023 Patient encounter procedure MD Jacinto Max Work Phone: [facility] Physician [facility] Infectious Disease Work Phone: Start: 04-06-2023 Non-patient / Non-visit MD Jacinto Max Work Phone: [facility] Physician [facility] Work Phone: Start: 03-12-2023 End: 03-12-2023 ambulatory Jacinto Max Other [email or web address] Other Start: 03-12-2023 Telephone encounter Jacinto BA G Infectious Disease Start: 03-11-2023 End: 03-11-2023 ambulatory Jacinto Max Other [email or web address] Other Start: 03-11-2023 Telephone encounter Jacinto BA G Infectious Disease Start: 03-02-2023 End: 03-02-2023 ambulatory Gypsy Mcmahon Other [email or web address] Other Start: 03-02-2023 Telephone encounter Gypsy Mcmahon [facility] Start: 02-26-2023 End: 02-26-2023 Patient encounter procedure MD Jacinto Max Work Phone: [facility]ician Group- Start: 02-25-2023 End: 02-25-2023 ambulatory Jacinto Max Facility:[facility] Start: 02-25-2023 End: 02-25-2023 ambulatory MD Jacinto Max Work Phone: [facility] Work Phone: Start: 02-25-2023 End: 02-25-2023 Discharged Recurring MD Jacinto Max Work Phone: [facility]-Infusion Therapy - O/P Work Phone: Start: 02-18-2023 End: 02-18-2023 ambulatory Jacinto Max Other [email or web address] Other Start: 02-18-2023 Office outpatient ne w 45 minutes Jacinto EUGENE Infectious Disease Start: 02-18-2023 End: 02-18-2023 Patient encounter procedure MD Jacinto Max Work Phone: [facility] Infectious Disease Work Phone: Start: 02-16-2023 End: 02-16-2023 ambulatory Gypsy Mcmahon Other [email or web address] Other Start: 02-16-2023 Office outpatient visit 15 minutes Gypsy Mcmahon [facility] Start: 02-16-2023 End: 02-16-2023 Patient encounter procedure MD Jacinto Max Work Phone: [facility]ician Group-[facility] Work Phone: Start: 01-29-2023 End: 05-06-2023 ambulatory MALATHI VIEIRA Facility:[facility] Start: 01-29-2023 End: 01-29-2023 Patient encounter procedure MALATHI VIEIRA [facility] Start: 01-29-2023 End: 05-05-2023 Recurring MAALTHI VIEIRA [facility] Start: 01-26-2023 End: 01-26-2023 Patient encounter procedure MALATHI VIEIRA [facility] Start: 01-26-2023 End: 01-27-2023 ambulatory MALATHI VIEIRA [facility] [employer] Other Start: 01-26-2023 Telephone encounter Hunter brady [facility] Start: 01-20-2023 End: 01-20-2023 ambulatory Hunter Brown Other [email or web address] Other Start: 01-20-2023 Telephone encounter Hunter brady [facility] Start: 01-12-2023 End: 01-12-2023 ambulatory Hunter Brown Other [email or web address] Other Start: 01-12-2023 Office outpatient visit 25 minutes Hunter Brown [facility] Start: 01-12-2023 End: 01-12-2023 Patient encounter procedure MD Jacinto Max Work Phone: [facility] Work Phone: Start: 01-11-2023 End: 01-11-2023 ambulatory Gypsy Mcmahon Other [email or web address] Other Start: 01-11-2023 Telephone encounter Gypsy Lisandro [facility] Start: 01-05-2023 End: 01-05-2023 ambulatory Gypsy Mcmahon Other [email or web address] Other Start: 01-05-2023 Telephone encounter Gypsy Mcmahon [facility] Start: 01-05-2023 Transitional care manage srvc 14 day discharge Gypsy Mcmahon [facility] Start: 01-05-2023 End: 01-05-2023 Patient encounter procedure MD Jacinto Max Work Phone: [facility] Physician [facility] Work Phone: Start: 12-30-2022 End: 12-30-2022 ambulatory Malathi Velázquez Other [email or web address] Other Start: 12-30-2022 Telephone encounter Malathi arias [facility] Start: 12-28-2022 End: 12-28-2022 ambulatory Malathi Velázquez Other [email or web address] Other Start: 12-28-2022 Office outpatient visit 15 minutes Malathi Velázquez [facility] Start: 12-28-2022 End: 12-28-2022 Patient encounter procedure MD Jacinto Max Work Phone: [facility] Physician Group-[facility] Work Phone: Start: 12-15-2022 End: 12-15-2022 ambulatory Gypsy Mcmahon Other [email or web address] Other Start: 12-15-2022 Office outpatient visit 15 minutes Gypsy Mcmahon [facility] Start: 12-15-2022 Telephone encounter Gypsy Mcmahon [facility] Start: 12-15-2022 End: 12-15-2022 Patient encounter procedure MD Jacinto Max Work Phone: [facility] Work Phone: Start: 11-11-2022 End: 11-11-2022 ambulatory [facility] Start: 10-29-2022 End: 10-29-2022 ambulatory Hunter Brown Facility:[facility] Start: 09-22-2022 End: 09-23-2022 ambulatory MALATHI VIEIRA Facility:[facility] Start: 09-22-2022 End: 09-22-2022 Patient encounter procedure MALATHI VIEIRA [facility] Start: 09-10-2022 End: 09-10-2022 ambulatory Jose G Ellington Other [email or web address] Other Start: 09-10-2022 Nursing evaluation o f patient and report Jose G Ellington [facility] Start: 09-08-2022 End: 09-08-2022 ambulatory Hunter Brown Other [email or web address] Other Start: 09-08-2022 Telephone encounter Hunter brady [facility] Gastroenterology Start: 09-01-2022 End: 09-01-2022 ambulatory Gypsy Mcmahon Other [email or web address] Other Start: 09-01-2022 Office outpatient visit 15 minutes Gypsy Mcmahon [facility] Start: 08-27-2022 End: 08-27-2022 ambulatory Gypsy Mcmahon Other [email or web address] Other Start: 08-27-2022 Telephone encounter Gypsy Mcmahon [facility] Start: 06-30-2022 End: 06-30-2022 ambulatory [facility] Start: 06-09-2022 End: 06-10-2022 ambulatory Marvin KWON Facility:[facility] Start: 06-09-2022 End: 06-09-2022 Patient encounter procedure Marvin KWON [facility] [place] Start: 05-27-2022 End: 05-28-2022 ambulatory MALATHI VIEIRA Facility:[facility] Start: 05-19-2022 End: 05-20-2022 ambulatory GYPSY MCMAHON Facility:[facility] Start: 05-19-2022 End: 05-19-2022 Patient encounter procedure MALATHI VIEIRA [facility] Start: 05-14-2022 End: 05-14-2022 ambulatory Gypsy Mcmahon Other [email or web address] Other Start: 05-14-2022 Telephone encounter yGpsy Mcmahon [facility] Start: 05-11-2022 End: 05-12-[address] GYPSY MCMAHON Facility:[facility] Start: 05-01-2022 (Televisit) Televisit Gypsy Mcmahon [facility] Start: 05-01-2022 End: 05-01-2022 ambulatory Gypsy Mcmahon Other [email or web address] Other Start: 05-01-2022 Telephone encounter Gypsy Mcmahon [facility] Start: 04-28-2022 End: 04-29-[address] GYPSY MCMAHON Facility:[facility] Start: 04-24-2022 End: 04-24-2022 ambulatory Hunter Brown Other [email or web address] Other Start: 04-24-2022 Office outpatient visit 15 minutes Hunter Brown [facility] Gastroenterology Start: 04-16-2022 End: 04-16-2022 ambulatory Gypsy Mcmahon Other [email or web address] Other Start: 04-16-2022 Telephone encounter Gypsy Mcmahon [facility] Start: 04-14-2022 End: 04-14-[address] GYPSY MCMAHON Facility:[facility] Start: 04-07-2022 End: 04-07-2022 ambulatory Gypsy Mcmahon Other [email or web address] Other Start: 04-07-2022 Office outpatient visit 15 minutes Gypsy Mcmahon [facility] Start: 04-03-2022 End: 04-03-2022 ambulatory Gypsy Mcmahon Other [email or web address] Other Start: 04-03-2022 Telephone encounter Gypsy Mcmahon [facility] Start: 03-30-2022 End: 03-30-2022 Departed Referred MD Gypsy Mcmahon Work Phone: [facility] [place] Work Phone: Start: 03-30-2022 End: 03-30-2022 ambulatory MD Gypsy Mcmahon Work Phone: [facility] Work Phone: Start: 03-30-2022 Nursing evaluation o f patient and report Gypsy Mcmahon [facility] Start: 03-20-2022 End: 03-21-[address] GYPSY MCMAHON Facility:[facility] Start: 03-19-2022 End: 03-19-2022 ambulatory Hunter Brown Other [email or web address] Other Start: 03-19-2022 Telephone encounter Hunter [facility] Gastroenterology Start: 03-11-2022 Registered Recurring MD Gypsy Mcmahon Work Phone: [facility]-Infusion Therapy - O/P Work Phone: Start: 02-23-2022 End: 02-24-[address] GYPSY MCMAHON Facility:[facility] Start: 02-19-2022 End: 02-19-2022 ambulatory Gypsy Mcmahon Other [email or web address] Other Start: 02-19-2022 Telephone encounter Gypsy Mcmahon [facility] Start: 02-17-2022 End: 02-18-[address] GYPSY MCMAHON Facility:[facility] Start: 02-16-2022 End: 02-16-2022 ambulatory Gypsy Mcmahon Other [email or web address] Other Start: 02-16-2022 Office outpatient visit 15 minutes Gypsy Mcmahon [facility] Start: 02-16-2022 End: 02-16-2022 Departed Referred MD Gypsy Mcmahon Work Phone: [facility] Work Phone: Start: 02-11-2022 End: 02-11-2022 ambulatory Hunter Brown Other [email or web address] Other Start: 02-11-2022 Office outpatient visit 15 minutes Hunter Brown [facility] Start: 02-11-2022 Telephone encounter Hunter brady [facility] Start: 01-26-2022 End: 01-27-[address] GYPSY MCMAHON Facility:[facility] Start: 01-15-2022 End: 01-16-[address] GYPSY MCMAHON Facility:[facility] Start: 01-06-2022 End: 01-06-2022 ambulatory Hunter Brown Other [email or web address] Other Start: 01-06-2022 Telephone encounter Hunter brady [facility] Start: 01-05-2022 End: 01-06-2022 ambulatory [facility] [employer] Other Start: 01-05-2022 Office outpatient visit 25 minutes Hunter Brown [facility] Start: 12-27-2021 End: 12-27-[address] REY MONTGOMERY Facility:[facility] Start: 12-18-2021 End: 12-19-2021 ambulatory CALU NASCIMENTO Facility:[facility] Start: 12-08-2021 End: 12-09-[address] GYPSY MCMAHON Facility:[facility] Start: 11-18-2021 End: 11-18-2021 ambulatory Hunter Brown Other [email or web address] Other Start: 11-18-2021 Telephone encounter Hunter Stacia [...] 08-18-2021 End: 08-18-2021 ambulatory Giana Griffiths Other [email or web address] Other Start: 08-18-2021 Telephone encounter Giana Griffiths [facility] Start: 08-12-2021 End: 08-12-[address] GYPSY MCMAHON Facility:[facility] Start: 04-22-2021 End: 04-22-2021 ambulatory Giana Griffiths Other [email or web address] Other Start: 04-22-2021 Telephone encounter Giana Griffiths [facility] Start: 03-27-2021 End: 03-27-2021 ambulatory Giana Griffiths Other [email or web address] Other Start: 03-27-2021 Office outpatient visit 25 minutes Giana Griffiths [facility] Start: 01-27-2021 End: 01-27-2021 ambulatory Giana Griffiths Other [email or web address] Other Start: 01-27-2021 Office outpatient visit 25 minutes Giana Griffiths [facility] Start: 01-27-2021 Telephone encounter Giana Rhoadesluis [facility] Gastroenterology Procedures Date Procedure Procedure Detail Performing Clinician Start: 06-09-2022 Cystoscopy Marvin EMIIL BOB Start: 02-16-2022 Piperacillin/tazobactam Gypsy Mcmahon Other [...] Detail Author Start: 06-15-2023 ambulatory Ambulatory Facility:[facility] Start: 03-30-2022 Bacteria identified in Urine by Culture [facility] Patient referral [facility] Work Phone: Immunizations Immunization Date Immunization Notes Care Provider Mikey henry 02-16-2022 Shingrix 50 MCG/0.5M L; 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: [Shingrix 50 MCG/0.5ML] Hunter Brown Other [email or web address] Other 01-15-2022 influenza virus vaccine, unspecified formulation MALATHI DEB [facility] 01-15-2022 SARS-CoV-2 (COVID-19 ) [id number] MALATHI DEB [facility] 01-23-2021 SARS-CoV-2 (COVID-19 ) mRNA BNT-162b2 vax MALATHI DEB [facility] 01-06-2021 influenza virus vaccine, unspecified formulation MALATHI DEB [facility] 03-27-2020 SARS-CoV-2 (COVID-19 ) mRNA BNT-162b2 vax MALATHI DEB [facility] 03-04-2020 SARS-CoV-2 (COVID-19 ) mRNA BNT-282a6 vax MALATHI DEB [facility] 12-06-2019 influenza virus vaccine, unspecified formulation MALATHI DEB [facility] 12-14-2018 influenza virus vaccine, unspecified formulation MALATHI DEB [facility] 02-02-2018 influenza virus vaccine, unspecified formulation MALATHI DEB [facility] 11-08-2017 pneumococcal polysaccharide vaccine, 23 valent MALATHI DEB [facility] 11-02-2017 influenza virus vaccine, unspecified formulation MALATHI DEB [facility] 12-09-2016 influenza virus vaccine, unspecified formulation MALATHI DEB [facility] 12-02-2016 influenza virus vaccine, unspecified formulation MALATHI VIEIRA [facility] 12-17-2015 influenza virus vaccine, unspecified formulation MALATHI DEB [facility] 10-10-2015 influenza virus vaccine, unspecified formulation MALATHI DEB [facility] 11-19-2014 influenza virus vaccine, unspecified formulation MALATHI DEB [facility] 11-09-2014 pneumococcal polysaccharide vaccine, 23 valent MALATHI VIEIRA [facility] NEGATED: Highlighted row has not occurred!01-26-2023 influenza virus vaccine, unspecified formulation MALATHI VIEIRA [facility] Payers Date Payer Category Payer Self-pay [id number] 1958 [facility] [id number]. 1958 Medicare [id number] 2.1 [id number] 1936 Unknown [id number] 2.16.84 0.1.237337.3.579.2.593 1936 Unknown [id number] 2.16.84 0.1.267573.3.579.2.593 1936 Unknown [id number] 2.16.84 0.1.435170.3.579.2.593 1936 Unknown [id number] 2.16.84 0.1.102458.3.579.2.593 1936 Unknown [id number] 2.16.84 0.1.555081.3.579.2.593 1936 Unknown [id number] 2.16.84 0.1.718863.3.579.2.593 1936 Unknown [id number] 2.16.84 0.1.240891.3.579.2.593 1936 Unknown [id number] 2.16.84 0.1.757783.3.579.2.593 1936 Unknown [id number] 2.16.84 0.1.509383.3.579.2.593 1936 Unknown [id number] 2.16.84 0.1.708339.3.579.2.593 1936 Unknown [id number] 2.16.84 0.1.728681.3.579.2.593 1936 Unknown [id number] 2.16.84 0.1.937888.3.579.2.593 1936 Unknown [id number] 2.16.84 0.1.135596.3.579.2.593 1936 Unknown [id number] 2.16.84 0.1.910768.3.579.2.593 1936 Unknown [id number] 2.16.84 0.1.186067.3.579.2.593 1936 Unknown [id number] 2.16.84 0.1.749374.3.579.2.593 1936 Unknown [id number] 2.16.84 0.1.400093.3.579.2.593 1936 Unknown [id number] 2.16.84 0.1.687350.3.579.2.593 1936 Unknown [id number] 2.16.84 0.1.407024.3.579.2.593 1936 Unknown [id number] 2.16.84 0.1.842322.3.579.2.593 1936 Unknown [id number] 2.16.84 0.1.770784.3.579.2.593 1936 Unknown [id number] 2.16.8 40.1.905024.3.579.2.727 1936 Unknown [id number] 2.16.8 40.1.712940.3.579.2.727 1936 Unknown [id number] 2.16.8 40.1.377801.3.579.2.727 1936 Unknown [id number] 2.16.8 40.1.126322.3.579.2.727 1936 Unknown [id number] 2.16.8 40.1.441128.3.579.2.727 1936 Unknown [id number] 2.16.8 40.1.167427.3.579.2.727 Unknown [id number] 2.16.8 40.1.859019.3.579.2.531 Unknown [id number] 2.16.8 40.1.060018.3.579.2.531 Social History Date Type Detail Facility Unknown if ever smoked [email or web address] Other Sex Assigned At [facility] Start: 1935 Sex Assigned At Female F [facility] Start: 05-19-2022 End: 06-09-2022 Tobacco smoking status Ex-smoker (finding) [facility] Start: 09-22-2022 Tobacco smoking status Never [facility] Start: 05-05-2023 [facility] Functional Status Date Assessment Result Facility 01-26-2023 Functional Status N/A [facility] 09-22-2022 Functional Status N/A [facility] 06-09-2022 Functional Status N/A [facility] [place] 05-19-2022 Functional Status N/A [facility] Clinical Notes 01-27-2021 to 03-12-2023 Note Date & Type Note Facility 03-12-2023 Evaluation note Encounter Date Diagnosis Assessment Notes Mar, 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 Preventative measures were discussed. Vitamin C feso-nti-oqzwelg recommended as well as topical Thera workx [...] n due to immunosuppression (ICD-10 - Z91.89) [facility] Other 01-09-2024 Evaluation note* Encounter Date Diagnosis [...] pain. Feb, Pain, unspecified (ICD-10 - R52) [email or web address] Other 12-19-2023 Hospital Discharge instructions Patient Education 01/26/2023 16:05:17 Urinary Tract Infection, Adult, Mkik-yb-Ulbv Urinary Tract Infection, Adult A urinary tract [...] Follow these instructions at home: Medicines Take bxqa-ymb-iinooli and prescription medicines only as told by [...] provider. Document Revised: 09/06/2020 Document Reviewed: 09/06/2020 [employer] Patient Education 2022 [employer]. Follow Up Care 06/09/2022 14:50:19 With:MALATHI VIEIRA PA-C, URL Address: [address] [place] [address] [phone] When: Unknown Comments:f[facility] [place] [facility] Evaluation note* Encounter Date Diagnosis Assessment Notes Treatment Notes Treatment Clinical Notes Jan, Diarrhea (ICD-10 - R19.7) [email or web address] Other 12-05-2023 Evaluation note* Encounter Date Diagnosis [...] a day, we will re-test for C-diff [email or web address] Other 11-28-2023 Evaluation note* Encounter Date Diagnosis Assessment Notes Treatment Notes Treatment Clinical Notes Dec, Clostridium difficile colitis (ICD-10 - A04.72) Finish meds as prescribed. (cipro, Flagyl) Followup w Dr. Brown as scheduled. Understands the c diff could recur. Followup as needed Discussed good nutrition and healthy diet. [email or web address] Other 11-20-2023 Evaluation note* Encounter Date Diagnosis [...] Pt understands and agrees with the plan. [email or web address] Other 11-07-2023 Evaluation note* Encounter Date Diagnosis Assessment Notes Treatment Notes Treatment Clinical Notes Dec, Frequent UTI (ICD-10 - N39.0) [email or web address] Other 11-07-2023 Evaluation note* Encounter Date Diagnosis [...] w Dr. Licea today. Consider PT at [facility] or the [facility]. [email or web address] Other [facility] [...] Rfl: miscellaneous medical supply (Blood Pressure Cuff) [facility], 1 kit in the morning and at [...] veins Hypertension - Uncon (more content not included)...[facility]08-15-2023 Hospital Discharge instructions Patient Education 09/22/2022 15:32:53 Urinary Tract Infection, Adult, Rria-re-Snlr Urinary Tract Infection, Adult A urinary tract [...] Follow these instructions at home: Medicines Take cscg-bzp-caduatx and prescription medicines only as told by [...] provider. Document Revised: 09/06/2020 Document Reviewed: 09/06/2020 [employer] Patient Education 2022 [employer]. Follow Up Care 09/22/2022 10:38:22 With:MALATHI VIEIRA PA-C, URL Address: [address] [place] [address] When: Unknown [facility] 08-03-2023 Evaluation note* Encounter Date Diagnosis Assessment Notes Treatment Notes Treatment Clinical Notes Sep, Dysuria (ICD-10 - R30.0) [email or web address] Other 08-01-2023 Evaluation note* Encounter Date Diagnosis Assessment Notes Treatment Notes Treatment Clinical Notes Sep, Microscopic colitis, unspecified microscopic colitis type (ICD-10 - K52.839) [email or web address] Other 07-25-2023 Evaluation note* Encounter Date Diagnosis Assessment Notes Treatment Notes Treatment Clinical Notes Aug, Frequent UTI (ICD-10 - N39.0) Continue estrogen cream. Review with Urology on her followup appt. Discussed causes of UTIs Aug, Lymphocytic colitis (ICD-10 - K52.832) Improved with GI at [facility]. 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 Barry. Reviewed medications and explained their purpose. [email or web address] Other 07-20-2023 Evaluation note* Encounter Date Diagnosis Assessment Notes Treatment Notes Treatment Clinical Notes Aug, Recurrent UTI (ICD-10 - N39.0) [email or web address] Other [facility] [...] asked her to discuss this with her manager case. Depending on the risk-benefit ratio will consider starting 1 or the other. She is on Zocor which is not ideal. If her cholesterol is not controlled, would suggest switching her to 40 mg of Lipitor or 20 mg of Crestor. Follow-up in 6 months or sooner should problems arise or her stress test revealed ischemia Jake Barry MD, MPH, FACC, [facility] Interventional Cardiology Pager Email: [email or web address] Hospital Discharge instructions Patient Education 06/09/2022 14:15:56 Urinary Tract Infection, Adult, Vivs-tv-Fbno Urinary Tract Infection, Adult A urinary tract [...] Follow these instructions at home: Medicines Take qzxy-fvw-iongwme and prescription medicines only as told by [...] provider. Document Revised: 09/06/2020 Document Reviewed: 09/06/2020 [employer] Patient Education 2022 [employer]. Follow Up Care 06/01/2022 10:03:13 With:CHER KRISHNAN, Marvin Camacho, URL Address: [facility] [address] [place] [address] [phone] When:10/10/2022 [facility] 04-11-2023 NoteChief Complaint Referral *Recurrent UTI HPI [...] anesthesia. 2. Feeling o (more content not included)...[facility]Comment on above:Result Comment: Electronically Signed By: MALATHI VIEIRA PA-C\.br\Date and Time Signed: 05/19/2313:49 EDT\.br\Electronically Co-Signed By: Ela Smith.br\Date and Time Co-Signed: 05/19/22 14:40 [id number] Hospital Discharge instructions Patient Education 05/19/2022 14:16:45 [...] Treatment for this condition includes: Antibiotic medicine. Wlkn-fsm-vvganca medicines to treat discomfort. Drinking enough water [...] Follow these instructions at home: Medicines Take ewar-jzw-cwfskle and prescription medicines only as told by [...] 11/04/2005 Document Revised: 01/12/2019 Document Reviewed: 08/04/2018 [employer] Patient Education 2020 [employer]. Follow Up Care 04/20/2022 10:50:51 With:DEB ZAZUETA, MALATHI Olvera, URL Address: [address] [place] [place] [address] When: Unknown [facility] 04-06-2023 Evaluation note* Encounter Date Diagnosis Assessment Notes Treatment Notes Treatment Clinical Notes May, Frequent UTI (ICD-10 - N39.0) [email or web address] Other 03-24-2023 Evaluation note* Encounter Date Diagnosis [...] back this morning. antibiotic at her pharmacy. [email or web address] Other 03-17-2023 Evaluation note* Encounter Date Diagnosis Assessment Notes Treatment Notes Treatment Clinical Notes Apr, Lymphocytic colitis (ICD-10 - K52.832) Continue Entyvio as directed Continue Lotronex 0.5 mg 1/2 tablet daily Rto 4 months [email or web address] Other 03-09-2023 Evaluation note* Encounter Date Diagnosis Assessment Notes Treatment Notes Treatment Clinical Notes Apr, Acute cystitis without hematuria (ICD-10 - N30.00) [email or web address] Other 02-28-2023 Evaluation note* Encounter Date Diagnosis Assessment Notes Treatment Notes Treatment Clinical Notes Mar, Recurrent UTI (ICD-10 - N39.0) Discussed options. Will try estrogen cream for vaginal health. Denies personal history of female cancers. Will also set up w Urology Mar, Colitis (ICD-10 - K52.9) Further treatment with Dr. Brown w appt on 04/24 [email or web address] Other 02-20-2023 Evaluation note* Encounter Date Diagnosis Assessment Notes Treatment Notes Treatment Clinical Notes Mar, Dysuria (ICD-10 - R30.0) [email or web address] Other 01-09-2023 Evaluation note* Encounter Date Diagnosis Assessment Notes Treatment Notes Treatment Clinical Notes Feb, Acute cystitis without hematuria (ICD-10 - N30.00) Sent to [facility] for urine culture - will treat based on results. Feb, Encounter for immunization (ICD-10 - Z23) Feb, Microscopic colitis, unspecified microscopic colitis type (ICD-10 - K52.839) Keep appt w Dr. Brown. Discussed boost or other supplement to gain weight Feb, Gastric ulcer (ICD-10 - K25.9) Encouraged her to continue pantoprazole [email or web address] Other 01-04-2023 Evaluation note* Encounter Date Diagnosis Assessment Notes Treatment Notes Treatment Clinical Notes Feb, Lymphocytic colitis (ICD-10 - K52.832) Start Entyvio infusions every 8 weeks Continue Budesonide, Alosetron, Imodium, and Pepto for now until starting Entyvio. Pt to keep record of bowel movements - how many and consistency Follow up in 2 months Feb, Fecal incontinence (ICD-10 - R15.9) [email or web address] Other 11-28-2022 Evaluation note* Encounter Date Diagnosis [...] Pantoprazole as prescribed Okay to stop Sucralfate [email or web address] Other 09-25-2022 NoteOPERATIVE NOTE OPERATION DATE: 11/04/2021 [...] was taken to PACU in good condition.[facility] 03-27-2021 Evaluation note* Encounter Date Diagnosis Assessment Notes Treatment Notes Treatment Clinical Notes Mar, Microscopic colitis, unspecified microscopic colitis type (ICD-10 - K52.839) INCREASE COLESTIPOL TO 4 TABS AT LUNCHTIME DAILY IF NOT IMPROVED ON HIGHER DOSE PT TO CALL ON 03/31 FOR ALTERNATIVE PLAN Mar, Irritable bowel syndrome with diarrhea (ICD-10 - K58.0) [email or web address] Other 12-20-2021 Evaluation note* Encounter Date Diagnosis Assessment Notes Treatment Notes Treatment Clinical Notes Jan, Microscopic colitis, unspecified microscopic colitis type (ICD-10 - K52.839) START COLESIPOL 2 PO DAILY CONTINUE BUDESONIDE WITHOUT CHANGE 3 PO Q AM AND MAYBE CONSIDERING STOP THIS IF COLESTIPOL IS WORKING ENOUGH TO CONTROL HER SYMPTOMS [facility] Other 12-20-2021 Evaluation note* Encounter Date Diagnosis Assessment Notes Treatment Notes Treatment Clinical Notes Jan, Microscopic colitis, unspecified microscopic colitis type (ICD-10 - K52.839) [employer] [facility] Other Evaluation + Plan note No data available for this section [facility] evaluation + Plan note Future Appointments Appointment Date:10/27/2022 01:00:00 PM Scheduled Provider:MALATHI VIEIRA PA-C Location:[facility] Appointment Type:URO Office Visit [facility] Evaluation + Plan note Future Appointments Appointment Date:12/29/2022 01:00:00 PM Scheduled Provider:MALATHI VIEIRA PA-C Location:[facility] Appointment Type:URO Office Visit [facility] evaluation + Plan note Future Appointments Appointment Date:06/15/2023 02:00:00 PM Scheduled Provider:MALATHI VIEIRA PA-C Location:[facility] Appointment Type:URO Office Visit [facility] evaluation + Plan note Future Appointments Appointment Date:01/30/2023 10:30:00 AM Scheduled Provider: Location:[facility] Appointment Type:ASU IV Antibiotic (FT) Appointment Date:01/31/2023 10:30:00 AM Scheduled Provider: Location:[facility] Appointment Type:ASU IV Antibiotic (FT) Appointment Date:02/01/2023 10:30:00 AM Scheduled Provider: Location:[facility] Appointment Type:ASU IV Antibiotic (FT) Appointment Date:02/02/2023 10:30:00 AM Scheduled Provider: Location:[facility] Appointment Type:ASU IV Antibiotic (FT) Appointment Date:02/03/2023 10:30:00 AM Scheduled Provider: Location:[facility] Appointment Type:ASU IV Antibiotic (FT) Appointment Date:02/04/2023 10:30:00 AM Scheduled Provider: Location:[facility] Appointment Type:ASU IV Antibiotic (FT) Appointment Date:06/15/2023 02:00:00 PM Scheduled Provider:MALATHI VIEIRA PA-C Location:[facility]ointment Type:URO [facility] Other Evaluation noteNo assessment information available [facility] Work Phone: Evaluation note* Diagnosis Onset Date Resolution Status Recurrent Clostridioides difficile diarrhea acute [facility] Work Phone: [facility] general Narrative - Reported* Type Description Date Medical History HTN Medical History hyperlipidemia Medical History microscopic colitis Surgical History T&A Surgical History Quad by-pass Surgical History total hysterectomy Surgical History gall bladder Surgical History Cataracts Surgical History Right Knee Scope Surgical History Sphincterectomy Surgical History Left Rotator Scope Surgical History Hernia Repair 03/24/2012 Hospitalization History See Surgical Hx [email or web address] Other [employer] general Narrative - Reported* Type Description Date [...] Hospitalization History See Surgical Hx Hospitalization History [facility] 12/2022 [email or web address] Other [employer] general Narrative - Reported* Type Description Date [...] Hospitalization History See Surgical Hx Hospitalization History [facility] 12/2022 [email or web address] Other [employer] general Narrative - Reported* Type Description Date [...] Hospitalization History See Surgical Hx Hospitalization History [facility] 12/2022 [email or web address] Other [employer] general Narrative - Reported* Type Description Date [...] Hospitalization History See Surgical Hx Hospitalization History [facility] 12/2022 [email or web address] Other Hospital Discharge instructions No data available for this section [facility] No data available for this section [facility] Summary Purpose Family History No [...] November 22, 2017 10:57am Hospital Course Note [facility]SOUTH Clinical Discharge Summary PERSON INFORMATION Name DELICIA HSU Age 83 Years 1935 Sex FEMALE Language Setswana PCP Lisandro KRISHNAN, Gypsy Olvera Marital Status Med Service Med/Surg Acct# Arrival 09/25/2019 06:52:00 Visit Reason SURGERY - LEFT TOTAL HIP [facility]uity LOS Address: [address] [place] [address] Comment: PROVIDER INFORMATION VITALS INFORMATION Vital Sign [...] difficile diarrhea Reason for Referral Reason DUPLICATE [place] office - frequent UTIs. Diagnosis 1 Frequent UTI (N39.0) Referral Organization [facility] jah Referring Provider First Name Gypsy Referring Provider Last Name Lisandro Referring Provider Specialty [facility] Amiare Referred [facility] Referred Provider Beau Hernandez Referred Address [address],[place],[address] Referred Provider Specialty Urology Referral Priority Routine General Notes Tatyana Bojorquez 01:56:52 PM >received today Tatyana Bojorquez 05/14/2022 02:02:41 PM >attachments made, notes locked, referral faxed Tatyana Bojorquez 05/14/2022 03:25:50 PM >DUPLICATE REFERRAL Reason *FU 04/28 [place] office - recurrent UTIs. Diagnosis 1 Recurrent UTI (N39.0 ) Referral Organization [facility] jah Referring Provider First Name Gypsy Referring Provider Last Name Lisandro Referring Provider Specialty [facility] Amiare Referred Organization [facility] Referred Provider Gerson Juárez Referred Address [address],[place],[address] Referred Provider Specialty Urology Referral Priority Routine [...] and content) DATE CREATED AUTHOR 09/17/2018 [facility] DATE CREATED AUTHOR AUTHOR'S ORGANIZ ATION 10/30/2019 [facility] DATE CREATED AUTHOR AUTHOR'S ORGANIZ ATION 05/31/2022 [facility] DATE CREATED AUTHOR AUTHOR'S ORGANIZ ATION 11/15/2022 [facility] DATE CREATED AUTHOR AUTHOR'S ORGANIZ ATION 05/07/2023 [facility] DATE CREATED AUTHOR AUTHOR'S ORGANIZ ATION 05/11/2023 [facility] REASON FOR VISIT (unrecogniz ed section [...] on alosetron, Patient was recently inpatient at [facility] and was diagnosed with gastric ulcerPRESCRIPTIONPATIENT [...] Member Role Status Dates Malathi Velázquez APRN PUNCHER-C Attending Provider Act judah Start: December 28, [...] BE BASED ON THE PRIMARY CLINICAL RECORDS. [employer] provides no warranty or guarantee of the accuracy or completeness of information in this document.
== END 2023-05-25 07:13 | disposition home or self-care (01) ==
LOC: LAB 07:12
PROVIDERS: PCP Family Medicine
DX: R19.7 Diarrhea, unspecified (principal)
CPT/HCPCS: 87045; 87046; 87427

== ENCOUNTER 2023-07-23 21:25 | Outpatient (OUT) | payer MEDICARE, BC, SELFPAY ==
--- OUTSIDE RECORDS SUMMARY | 2023-07-23 21:28 | XMS_ITS ---
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 Role Phone Giana Grfifiths Unavailable Hunter Brown Unavailable MD Gypsy Mcmahon Primary Care Provider [phone] MD Gypsy Mcmahon Attending Provider MD Hunter Brown Attending Provider Gypsy Mcmahon Unavailable GYPSY MCMAHON Primary Care Physician [phone] DR GYPSY MCMAHON Admitting Unavailable MCMAHON, DR GYPSY Olvera Consulting Unavailable MCMAHON, DR GYPSY Olvera Attending Unavailable MCMAHON, DR GYPSY Olvera Primary Care Unavailable VALENTINA, DR REY Bustamante Attending Unavailabl e VALENTINA, DR REY Bustamante Consulting Unavailabl e VALENTINA, DR REY Bustamante Admitting Unavailabl e MCMAHON, DR GYPSY Olvera Primary Care Unavailable ÁNGELADARRION ., TIFFANIE VALLES Consulting Unavailabl e MCMAHON, [...] Unavailable MCMAHON, DR GYPSY Olvera Attending Unavailable LISANDRO, DR GYPSY Olvera Primary Care Unavailable MCMAHON, [...] Nirav Camacho Attending Unavailable MCMAHON, DR GYPSY lOvera Admitting Unavailable MCMAHON, DR GYPSY Olvera Attending [...] VALENTINA, DR REY Bustamante Admitting Unavailabl e REINECK, DR REY Bustamante Attending Unavailabl e REINECK, DR REY Bustamante Consulting Unavailabl e MCMAHON, DR GYPSY Olvera Primary Care Unavailable MCMAHON, DR GYPSY Olvera Primary Care Unavailable ANNALISA ., EMILIE Consulting Unavailable ANNALISA ., EMILIE Admitting Unavailable [...] G [place] Unavailable [facility] Attending Unavailable [facility] Attending Unavailable Malathi Velázquez Unavailable [phone] MD Jacinto Max Attending Provider MD Jacinto Max Referring Provider MD Gypsy Mcmahon Primary Care Provider [phone] Jacinto Max Unavailable MD Jacinto Max Attending Provider MD Jacinto Max Referring Provider MD Gypsy Mcmahon Primary Care Provider TuDO Marvin moreno Emergency Provider MD Gypsy Mcmahon Primary Care Provider [phone] [place], DO Monie Gastelum Attending Provider [phone] Jacinto Max Admitting Unavailable Jacinto Max Attending Unavailable Jacinto Max Referring Unavailable Gypsy Mcmaohn Primary Care Unavailable Ly, Monie Gastelum Attending Unavailable Ly, Monie Gastelum Admitting Unavailable Gypsy Mcmahon E Primary Care Unavailable Tupa, Marvin Yancey Admitting Unavailable Tutiffanie, Marvin Yancey Attending Unavailable Gypsy Mcmahon E Primary Care Unavailable Hunter Brown Admitting UnavailHunter Grimes Attending Unavailabl e Lisandro Gypsy E Primary Care Unavailable DEBMALATHI RUBIO Attending Unavailable DEB, MALATHI Olvera Attending Unavailable DEBMALATHI Referring Unavailable DEBMALATHI RUBIO Admitting Unavailable DEB, MALATHI Olvera Attending Unavailable DEB, MALATHI Olvera Attending Unavailable ROYAL, MOHAMED F Attending Unavailable MCMAHON GYPSY E Referring Unavailable MCMAHON GYPSY E Primary Care Unavailable ROYAL, MOHAMED F Attending Unavailable ROYAL, MOHAMED F Referring Unavailable MCMAHON GYPSY E Primary Care Unavailable Allergies Allergy Classification Reported Allergen(s) Allergy Type Date of Onset Reaction(s) Facility (20 sources) Promethazine; 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: [promethazine] Drug Allergy 02-04-20 13 anaphylaxis, Anaphylaxis (disorder) [facility] (20 sources) histamines Drug allergy Unknown [facility] Other (9 sources) Histamine H2 Inhibitors; 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: [Histamine H2 Inhibitors] Allergy to substance 07-16-19 13 Unknown Reaction [facility] (20 sources) levoFLOXacin; 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: [levofloxacin] Drug Allergy 07-01-19 23 Tremor (finding) [facility] (1 source) diphenhydrAMINE Drug Allergy 04-20-19 [facility] (1 source) ezetimibe Drug Allergy 04-20-19 20 [facility] (1 source) Gemfibrozil Drug Allergy 04-20-19 [facility] (2 sources) Levamisole; 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: [Phenergan] Drug Allergy 07-16-19 13 [facility] (1 source) NSAIDs Drug allergy (disorder) 04-20-19 [facility] (1 source) Nasal Decongestant Drug allergy (disorder) 04-20-19 [facility] (1 source) Darvocet-N 100 Drug allergy (disorder) 04-20-19 [facility] (11 sources) diphenhydrAMINE; 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: [diphenhydramine] Drug Allergy jumpy,, Unknown [facility] (14 sources) Penicillin; 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: [penicillin] Drug Allergy Eruption of skin (disorder) [facility] (1 source) Histamine; 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: [HISTAMINE] Drug Allergy 02-04-20 13 [facility] (4 sources) Penicillins; 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: [Penicillins] Propensity to adverse reactions 02-25-19 24 Rash [facility] (2 sources) Antihistamines Allergy to substance 02-26-19 Unknown Reaction [facility] (1 source) Promethazine Drug Allergy 12-07-19 18 [facility] Encounters Encounter Date Encounter Type Care Provider Facility Start: 06-23-2023 End: 06-24-2023 ambulatory [facility] Start: 06-17-2023 End: 06-17-2023 [place] [facility] Start: 06-15-2023 End: 06-16-2023 ambulatory MALATHI VIEIRA Facility:[facility] Start: 06-15-2023 End: 06-15-2023 Patient encounter procedure MALATHI VIEIRA [facility] Start: 05-28-2023 End: 05-28-2023 ambulatory Monie Nirav Wallace Facility:[facility] Start: 05-28-2023 End: 05-28-2023 ambulatory MD Gypsy Mcmahon Work Phone: [facility] Work Phone: Start: 05-28-2023 End: 05-28-2023 Patient encounter procedure MD Gypsy Mcmahon Work Phone: [facility]-CT Scan [facility] [place] Work Phone: Start: 05-25-2023 Non-patient / Non-visit MD Gypsy Mcmahon Work Phone: [facility] [place] [facility] [employer] Work Phone: Start: 05-24-2023 End: 05-24-2023 Patient encounter procedure MD Gypsy Mcmahon Work Phone: [facility] Work Phone: Start: 05-21-2023 End: 05-21-2023 Patient encounter procedure MD Gypsy Mcmahon Work Phone: [facility] Work Phone: Start: 05-06-2023 Non-patient / Non-visit MD Gypsy Mcmahon Work Phone: [facility] [place] [facility] [employer] Work Phone: Start: 05-05-2023 End: 05-05-2023 Emergency department patient visit Marvin Garcia Facility:[facility] Start: 05-05-2023 End: 05-05-2023 Emergency department patient visit MD Jacinto Max Work Phone: [facility]-Emergency Room Work Phone: Start: 05-01-2023 Non-patient / Non-visit MD Jacinto Max Work Phone: [facility] Work Phone: Start: 04-15-2023 End: 04-15-2023 Patient encounter procedure MD Jacinto Max Work Phone: [facility] Infectious Disease Work Phone: Start: 04-06-2023 Non-patient / Non-visit MD Jacinto Max Work Phone: [facility] Work Phone: Start: 03-12-2023 End: 03-12-2023 ambulatory Jacinto Max Other [facility] Other Start: 03-12-2023 Telephone encounter Jacinto BA G Infectious Disease Start: 03-11-2023 End: 03-11-2023 ambulatory Jacinto Max Other [facility] Other Start: 03-11-2023 Telephone encounter Jcainto Bustamante [facility] Start: 03-02-2023 End: 03-02-2023 ambulatory Gypsy Mcmahon Other [facility] Other Start: 03-02-2023 Telephone encounter Gypsy Mcmahon [facility] Start: 02-26-2023 End: 02-26-2023 Patient encounter procedure MD Jacinto Max Work Phone: [facility]- Start: 02-25-2023 End: 02-25-2023 ambulatory Jacinto Max Facility:[facility] Start: 02-25-2023 End: 02-25-2023 ambulatory MD Jacinto Max Work Phone: [facility] Work Phone: Start: 02-25-2023 End: 02-25-2023 Discharged Recurring MD Jacinto Max Work Phone: [facility]-Infusion Therapy - O/P Work Phone: Start: 02-18-2023 End: 02-18-2023 ambulatory Jacinto Max Other [facility] Other Start: 02-18-2023 Office outpatient ne w 45 minutes Jacinto Max [facility] Infectious Disease Start: 02-18-2023 End: 02-18-2023 Patient encounter procedure MD Jacinto Max Work Phone: [facility] Infectious Disease Work Phone: Start: 02-16-2023 End: 02-16-2023 ambulatory Gypsy Mcmahon Other [employer] Other Start: 02-16-2023 Office outpatient visit 15 minutes Gypsy Mcmahon [facility] Start: 02-16-2023 End: 02-16-2023 Patient encounter procedure MD Jacinto Max Work Phone: [facility] Work Phone: Start: 01-29-2023 End: 05-06-2023 ambulatory MLAATHI VIEIRA [place] Start: 01-29-2023 End: 01-29-2023 Patient encounter procedure MALATHI GUERRERORY [facility] Start: 01-29-2023 End: 05-05-2023 Recurring MALATHI Wade VIEIRA [facility] Start: 01-26-2023 End: 01-26-2023 Patient encounter procedure MALATHI GUERRERORY [facility] Start: 01-26-2023 End: 01-27-2023 ambulatory MALATHI VIEIRA [facility] [employer] Other Start: 01-26-2023 Telephone encounter Hunter Palomo [facility] Start: 01-20-2023 End: 01-20-2023 ambulatory Hunter Brown Other [facility] Other Start: 01-20-2023 Telephone encounter Hunter Palomo caitlyn [facility] Gastroenterology Start: 01-12-2023 End: 01-12-2023 ambulatory Hunter Brown Other [facility] Other Start: 01-12-2023 Office outpatient visit 25 minutes Hunter Brown [facility] Gastroenterology Start: 01-12-2023 End: 01-12-2023 Patient encounter procedure MD Jacinto Max Work Phone: [facility] Gastroenterology Work Phone: Start: 01-11-2023 End: 01-11-2023 ambulatory Gypsy Mcmahon Other [facility] Other Start: 01-11-2023 Telephone encounter Gypsy Mcmahon [facility] Start: 01-05-2023 End: 01-05-2023 ambulatory Gypsy Mcmahon Other [facility] Other Start: 01-05-2023 Telephone encounter Gypsy Mcmahon [facility] Start: 01-05-2023 Transitional care manage srvc 14 day discharge Gypsy Mcmahon [facility] Start: 01-05-2023 End: 01-05-2023 Patient encounter procedure MD Jacinto Max Work Phone: [facility] Work Phone: Start: 12-30-2022 End: 12-30-2022 ambulatory Malathi Velázquez Other [facility] Other Start: 12-30-2022 Telephone encounter Malathi arias [facility] Start: 12-28-2022 End: 12-28-2022 ambulatory Malathi Velázquez Other [facility] Other Start: 12-28-2022 Office outpatient visit 15 minutes Malathi Velzáquez [facility] Start: 12-28-2022 End: 12-28-2022 Patient encounter procedure MD Jacinto Max Work Phone: [facility] Work Phone: Start: 12-15-2022 End: 12-15-2022 ambulatory Gypsy Mcmahon Other [facility] Other Start: 12-15-2022 Office outpatient visit 15 minutes Gypsy Mcmahon [facility] Start: 12-15-2022 Telephone encounter Gypsy Mcmahon [facility] Start: 12-15-2022 End: 12-15-2022 Patient encounter procedure MD Jacinto Max Work Phone: [facility] Work Phone: Start: 11-11-2022 End: 11-11-2022 ambulatory AB [facility] Start: 10-29-2022 End: 10-29-2022 ambulatory Hunter Brown Facility:[facility] Start: 09-22-2022 End: 09-23-2022 ambulatory MALATHI VIEIRA Facility:[facility] Start: 09-22-2022 End: 09-22-2022 Patient encounter procedure MALATHI VIEIRA [facility] Start: 09-10-2022 End: 09-10-2022 ambulatory Jose G Ellington Other [facility] Other Start: 09-10-2022 Nursing evaluation o f patient and report Jose G Ellington [facility] Start: 09-08-2022 End: 09-08-2022 ambulatory Hunter Brown Other [facility] Other Start: 09-08-2022 Telephone encounter Hunter brady [facility] Gastroenterology Start: 09-01-2022 End: 09-01-2022 ambulatory Gypsy Mcmahon Other [facility] Other Start: 09-01-2022 Office outpatient visit 15 minutes Gypsy Mcmahon [facility] Start: 08-27-2022 End: 08-27-2022 ambulatory Gypsy Mcmahon Other [facility] Other Start: 08-27-2022 Telephone encounter Gypsy Mcmahon [facility] Start: 06-30-2022 End: 06-30-2022 ambulatory AB [facility] Start: 06-09-2022 End: 06-09-2022 Patient encounter procedure Marvin Camacho [facility] Start: 05-27-2022 End: 05-28-2022 ambulatory MALATHI VIEIRA Facility:[facility] Start: 05-19-2022 End: 05-19-2022 Patient encounter procedure MALATHI GUERRERORY [facility] Start: 05-14-2022 End: 05-14-2022 ambulatory Gypsy Mcmahon Other [facility] Other Start: 05-14-2022 Telephone encounter Gypsy Mcmahon [facility] Start: 05-11-2022 End: 05-12-[address] GYPSY MCMAHON Facility:[facility] Start: 05-01-2022 (Televisit) Televisit Gypsy Evangelista [facility] Start: 05-01-2022 End: 05-01-2022 ambulatory Gypsy Mcmahon Other [facility] Other Start: 05-01-2022 Telephone encounter Gypsy Mcmahon [facility] Start: 04-28-2022 End: 04-29-[address] GYPSY MCMAHON Facility:[facility] Start: 04-24-2022 End: 04-24-2022 ambulatory Hunter Brown Other [facility] Other Start: 04-24-2022 Office outpatient visit 15 minutes Hunter Brown [facility] G[facility]enter[facility] Start: 04-16-2022 End: 04-16-2022 ambulatory Gypsy Mcmahon Other [facility] Other Start: 04-16-2022 Telephone encounter Gypsy Mcmahon [facility] Start: 04-14-2022 End: 04-14-[address] GYPSY MCMAHON Facility:[facility] Start: 04-07-2022 End: 04-07-2022 ambulatory Gypsy Mcmahon Other [facility] Other Start: 04-07-2022 Office outpatient visit 15 minutes Gypsy Mcmahon [facility] Start: 04-03-2022 End: 04-03-2022 ambulatory Gypsy Mcmahon Other [facility] Other Start: 04-03-2022 Telephone encounter Gypsy Mcmahon [facility] Start: 03-30-2022 End: 03-30-2022 Departed Referred MD Gypsy Mcmahon Work Phone: [facility]-Lab [facility] [place] Work Phone: Start: 03-30-2022 End: 03-30-2022 ambulatory MD Gypsy Mcmahon Work Phone: [facility] Work Phone: Start: 03-30-2022 Nursing evaluation o f patient and report Gypsy Mcmahon [facility] Start: 03-20-2022 End: 03-21-[address] GYPSY MCMAHON Facility:[facility] Start: 03-19-2022 End: 03-19-2022 ambulatory Hunter Brown Other [facility] Other Start: 03-19-2022 Telephone encounter Hunter Palomo [facility] Start: 03-11-2022 Registered Recurring MD Gypsy Mcmahon Work Phone: [facility]-Infusion Therapy - O/P Work Phone: Start: 02-23-2022 End: 02-24-[address] GYPSY MCMAHON Facility:[facility] Start: 02-19-2022 End: 02-19-2022 ambulatory Gypsy Mcmahon Other [facility] Other Start: 02-19-2022 Telephone encounter Gypsy Mcmahon [facility] Start: 02-17-2022 End: 02-18-[address] GYPSY MCMAHON Facility:[facility] Start: 02-16-2022 End: 02-16-2022 ambulatory Gypsy Mcmahon Other [facility] Other Start: 02-16-2022 Office outpatient visit 15 minutes Gypsy Mcmahon [facility] Start: 02-16-2022 End: 02-16-2022 Departed Referred MD Gypsy Mcmahon Work Phone: [facility] [place] Work Phone: Start: 02-11-2022 End: 02-11-2022 ambulatory Hunter Brown Other [facility] Other Start: 02-11-2022 Office outpatient visit 15 minutes Hunter Brown [facility] Start: 02-11-2022 Telephone encounter Hunter brady [facility] Start: 01-26-2022 End: 01-27-[address] GYPSY MCMAHON Facility:[facility] Start: 01-15-2022 End: 01-16-[address] GYPSY MCMAHON Facility:[facility] Start: 01-06-2022 End: 01-06-2022 ambulatory Hunter Brown Other [facility] Other Start: 01-06-2022 Telephone encounter Hunter brady [facility] Start: 01-05-2022 End: 01-06-2022 ambulatory CLAU NASCIMENTO [facility] [employer] Other Start: 01-05-2022 Office outpatient visit 25 minutes Hunter Brown [facility] Start: 12-27-2021 End: 12-27-[address] REY MONTGOMERY Facility:[facility] Start: 12-18-2021 End: 12-19-2021 ambulatory CLAU NASCIMENTO Facility:[facility] Start: 12-08-2021 End: 12-09-[address] GYPSY MCMAHON Facility:[facility] Start: 11-18-2021 End: 11-18-2021 ambulatory Hunter Brown Other [facility] Other Start: 11-18-2021 Telephone encounter Hunter Palomo [...] 08-18-2021 End: 08-18-2021 ambulatory Giana Griffiths Other [facility] Other Start: 08-18-2021 Telephone encounter Giana Griffiths [facility] Start: 08-12-2021 End: 08-12-[address] GYPSY MCMAHON Facility:[facility] Start: 04-22-2021 End: 04-22-2021 ambulatory Giana Griffiths Other [facility] Other Start: 04-22-2021 Telephone encounter Giana Griffiths [facility] Start: 03-27-2021 End: 03-27-2021 ambulatory Giana Griffiths Other [facility] Other Start: 03-27-2021 Office outpatient visit 25 minutes Giana Jfluis [facility] G[facility]enter[facility] Start: 01-27-2021 End: 01-27-2021 ambulatory Giana Griffiths Other [facility] Other Start: 01-27-2021 Office outpatient visit 25 minutes Giana Jfluis [facility] Start: 01-27-2021 Telephone encounter Giana Jfluis [facility] Immunizations Immunization Date Immunization Notes Care Provider Bob henry 02-16-2022 Shingrix 50 MCG/0.5M L; 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: [Shingrix 50 MCG/0.5ML] Hunter Brown Other [facility] Other 01-15-2022 influenza virus vaccine, unspecified formulation MALATHI DEB [facility] 01-15-2022 SARS-CoV-2 (COVID-19 ) [id number] MALATHI DEB [facility] 01-23-2021 SARS-CoV-2 (COVID-19 ) mRNA BNT-162b2 vax MALATHI DEB [facility] 01-06-2021 influenza virus vaccine, unspecified formulation MALATHI DEB [facility] 03-27-2020 SARS-CoV-2 (COVID-19 ) mRNA BNT-162b2 vax MALATHI DEB [facility] 03-04-2020 SARS-CoV-2 (COVID-19 ) mRNA BNT-162b2 vax MALATHI DEB [facility] 12-06-2019 influenza virus vaccine, unspecified formulation MALATHI DEB [facility] 12-14-2018 influenza virus vaccine, unspecified formulation MALATHI DEB [facility] 02-02-2018 influenza virus vaccine, unspecified formulation MALATHI DEB [facility] 11-08-2017 pneumococcal polysaccharide vaccine, 23 valent MALATHI DEB [facility] 11-02-2017 influenza virus vaccine, unspecified formulation MALATHI DEB [facility] 12-09-2016 influenza virus vaccine, unspecified formulation MALATHI DEB [facility] 12-02-2016 influenza virus vaccine, unspecified formulation MALATHI DEB [facility] 12-17-2015 influenza virus vaccine, unspecified formulation MALATHI DEB [facility] 10-10-2015 influenza virus vaccine, unspecified formulation MALATHI DEB [facility] 11-19-2014 influenza virus vaccine, unspecified formulation MALATHI DEB [facility] 11-09-2014 pneumococcal polysaccharide vaccine, 23 valent MALATHI DEB [facility] NEGATED: Highlighted row has not occurred!01-26-2023 influenza virus vaccine, unspecified formulation MALATHI DEB [facility] Medications Current Medications Medication Drug Class(es) Dates Sig (Normalized) Sig (Original) amoxicillin 500 mg oral capsule (3 sources) Penicillin-class Antibacterial Start: 04-16-2022 take 1 capsule by mouth every twelve hours Amoxicillin 500 MG 1 capsule Orally Twice a day for 7 days Apr, Active bismuth subsalicylate 17.5 mg/ml oral suspension (20 sources) Bismuth Start: 05-21-2023 Bismuth Subsalicylate (Pepto-Bismol) 262 mg/15 mL suspension Active 524 MG PO every 30 to 60 minutes May 21, 2023 12:00am do not exceed 8 doses in a 24 hour period Start: 09-22-2022 Pepto-Bismol R efills(s) 0 Start Date: 09/22/22 Status: Ordered Pepto-Bismol Act jamar budesonide 3 mg delayed release oral capsule (20 sources) Corticosteroid Start: 05-21-2023 take 6 mg by mouth once daily Budesonide Active 6 MG PO Daily May 21, 2023 10:12am Start: 05-14-2022 budesonide 3 m g oral delayed release capsule Refills(s) 0 Start Date: 05/14/22 Status: Ordered Start: 12-06-2017 End: 05-21-2023 take 9 mg by mouth once daily Budesonide Discontinued 9 MG PO Daily December 06, 2017 12:00am May 21, 2023 10:14am cholecalciferol 0.05 mg oral tablet (5 sources) Vitamin D Start: 12-06-2017 take 1 tablet by mouth once daily Cholecalciferol (Vitamin D3) (Vitamin D3) 2,000 unit Tablet Active 2000 UNIT PO Daily December 06, 2017 12:00am Cholestyramine Resin (1 source) Bile Acid Sequestrant Start: 05-21-2023 take 1 dose by mouth twice daily Cholestyramine (With Sugar) (Questran) 4 gram powder Active 4 GM PO Twice daily 348.6 30 May 21, 2023 12:00am administer w/meal; avoid other meds within 1hr before or 4-6hr after dose ciprofloxacin 500 mg oral tablet (1 source) [...] Animalis (Daily Probiotic) 2.5 billion cell capsule (2 sources) Start: 04-15-2023 lactobacillus acidophilus [id number] unt oral tablet (2 sources) take 1 tablet by mouth every twelve hours Lactobacillus - 1 tablet twice a day Active lactobacillus acidophilus 0.05 mg / lactobacillus bulgaricus 0.05 mg oral tablet (4 sources) take 1 tablet by mouth every twelve hours Lactobacillus - 1 tablet twice a day Active loperamide hydrochloride 2 mg oral capsule (20 sources) Opioid Agonist Start: 05-21-2023 take 1 capsule by mouth four times daily Loperamide (Imodium A-D) 2 mg capsule Active 2 MG PO Four times daily May 21, 2023 12:00am Start: 09-22-2022 take 1 mg by mouth once Imodiu m A-D mg, Oral, Refills(s) 0 Start Date: [...] as needed Orally Once a day Active metroNIDAZOLE 500 mg oral tablet (8 sources) Nitroimidazole Antimicrobial Start: 08-19-19 22 take 1 tablet by mouth every twelve hours metroNIDAZOLE 500 MG 1 tablet Orally bid for 7 day(s) Aug, Active take 1 tablet by mouth every six hours metroNIDAZOLE 500 MG 1 tablet 4 times a day Active Multi For Her - (20 sources) Multi For Her - as directed Orally Active Multivitamin (Daily Multi-Vitamin) tablet (2 sources) Start: 04-15-19 24 take 1 tablet by mouth once daily Multivitamin (Daily Multi-Vitamin) tablet Active 1 TAB PO Daily April 15, 2023 1:00am Multivitamin preparation (7 sources) Start: 05-20-19 23 multivitamin Daily, Refill(s) 0 Start Date: 05/19/22 Status: Ordered Nature's Bounty Probiotic (4 sources) Start: 01-27-20 Nature's Bounty Probiotic Oral, Daily Start Date: 01/26/23 Status: Ordered nitrofurantoin, macrocrystals 25 mg / nitrofurantoin, monohydrate 75 mg oral capsule (3 sources) Nitrofuran Antibacterial Start: 05-20-19 take 1 mg by mouth twice daily Macrobid 100 mg Cap mg cap(s), Oral, BID, Refills(s) 0 Start Date: 05/19/22 Status: Ordered Start: 05-14-2022 take 1 capsule by mo uth every twelve hours Macrobid 100 MG 1 capsule with food Orally every 12 hrs for 7 days May, Active pantoprazole 20 mg delayed release oral tablet (20 sources) Proton Pump Inhibitor Start: 05-21-2023 take 20 mg by mouth once daily Pantoprazole Active 20 MG PO Daily May 21, 2023 12:00am Start: 05-14-2022 End: 05-21-[address] Tab Re fills(s) 0 Start Date: 05/14/22 Status: Ordered simvastatin 40 mg oral tablet (20 sources) HMG-CoA Reductase Inhibitor Start: 05-10-2023 take 1 tablet by mouth once daily Simvastatin Active 0 .ROUTE .COMPLEX May 10, 2023 4:20pm TAKE 1 TABLET BY MOUTH DAILY Start: 12-06-2017 End: 05-10-2023 simvastatin 40 mg Tab Refill s(s) 0 Start Date: 05/14/22 Status: Ordered spironolactone [...] (Original) alendronic acid 70 mg oral tablet (5 sources) Bisphosphonate Start: 12-06-2017 End: 04-15-2023 take 70 mg by mouth every week Alendronate Discontinued 70 MG PO every week December 06, 2017 12:00am April 15, 2023 2:36pm alosetron 0.5 mg oral tablet (20 sources) Serotonin-3 Receptor Antagonist Start: 10-03-2021 End: 05-21-2023 take 0.5 tablet by mouth once daily aspirin 81 mg delayed release oral tablet (11 sources) Platelet Aggregation Inhibitor, Nonsteroidal Anti-inflammatory Drug [...] Orally bid for 7 days Apr, Not-Taking cephalexin 500 mg oral capsule (1 source) Cephalosporin Antibacterial Start: 05-19-2023 End: 05-24-2023 take 500 mg by mouth twice daily Cephalexin Discontinued 500 MG PO Twice daily May 19, 2023 12:00am May 24, 2023 1:33pm Cranberry preparation (10 sources) Non-Standardized Food Allergenic Extract, Non-Standardized Plant [...] 2 cap(s), Refills(s) 0, Pharmacy: [facility]/pharmacy #[id number], 178, cm, 05/19/22 13:31:00 EDT, Height/Length Dosing, 61, kg, 05/19/22 13:31:00 EDT, Weigh... Start Date: 06/01/22 Status: Ordered fidaxomicin 200 mg oral tablet (4 sources) Macrolide Antibacterial Start: 04-22-2023 End: 05-21-2023 take 1 tablet by mouth every other day Fidaxomicin (Dificid) 200 mg tablet Discontinued 200 MG PO every other day 11 27April 22, 2023 3:47pm May 21, 2023 9:58am Start: 04-15-2023 End: 04-22-2023 take 1 tablet by mouth every twelve hours Fidaxomicin (Dificid) 200 mg tablet Discontinued 200 MG PO Every 12 hours 27 11April 15, 2023 1:00am April 22, 2023 3:49pm fosfomycin 3000 mg powder for oral solution (1 source) Start: 05-07-2023 End: 05-21-2023 Fosfomycin Tromethamine Discontinued 1 PACKET PO Once 1 May 07, 2023 12:00am May 21, 2023 9:59am hydroCHLOROthiazide 12.5 mg / losartan potassium 50 mg oral tablet (5 sources) Thiazide Diuretic, Angiotensin 2 Receptor Daryl Start: 12-06-2017 End: 04-15-2023 take 1 tablet by mouth once daily Losartan-Hydrochl orothiazide Discontinued 1 TAB PO Daily December 06, 2017 12:00am April 15, 2023 2:38pm Iron (6 sources) Iron Not-Taking 24 hr metoprolol succinate 25 mg extended release oral tablet (20 sources) beta-Adrenergic Daryl Start: 04-15-2023 End: 05-21-2023 Metoprolol Succinate (Toprol Xl) 25 mg tablet extended release 24 hr Discontinued 50 MG PO Daily April 15, 2023 10:04am May 21, 2023 9:59am Start: 05-19-2022 metoprolol Ref ills(s) 0 Start Date: 05/19/22 Status: Ordered Start: 12-06-2017 End: 04-15-2023 take 1 tablet by mouth once daily Metoprolol Succinate (Toprol Xl) 25 mg Tablet Extended Release 24 Hr Discontinued 25 MG PO Daily December 06, 2017 12:00am April 15, 2023 10:04am Metoprolol Succi fantasma ER 50 MG TAKE 1 TABLET DAILY Active take 1 tablet by ad every twelve hours Metoprolol Tartrate 50 MG 1 tablet with food Orally Twice a day Active Metoprolol Tartr ate Active ondansetron 4 mg oral tablet (10 sources) [...] HCl Not-Taking vancomycin 125 mg oral capsule (20 sources) Glycopeptide Antibacterial Start: 01-26-2023 take 1 capsule by mouth every six [...] 01-26-2023 take 1 capsule by mo [facility] every twenty-four hours Vancomycin HCl 250 MG 1 capsule Orally Once a day for 30 days PLEASE CHECK ALLERGIES Jan, Active Payers Date Payer Category Payer Self-pay [id number] 1958 [facility] [id number] 1958 Medicare [id number] 2.1 [id number] 1936 Unknown [id number] 2.16.84 0.1.237485.3.579.2.593 1936 Unknown [id number] 2.16.84 0.1.470318.3.579.2.593 1936 Unknown [id number] 2.16.84 0.1.645334.3.579.2.593 1936 Unknown [id number] 2.16.84 0.1.500003.3.579.2.593 1936 Unknown [id number] 2.16.84 0.1.058899.3.579.2.593 1936 Unknown [id number] 2.16.84 0.1.426224.3.579.2.593 1936 Unknown [id number] 2.16.84 0.1.582247.3.579.2.593 1936 Unknown [id number] 2.16.84 0.1.035253.3.579.2.593 1936 Unknown [id number] 2.16.84 0.1.598643.3.579.2.593 1936 Unknown [id number] 2.16.84 0.1.402604.3.579.2.593 1936 Unknown [id number] 2.16.84 0.1.344425.3.579.2.593 1936 Unknown [id number] 2.16.84 0.1.194137.3.579.2.593 1936 Unknown [id number] 2.16.84 0.1.888106.3.579.2.593 1936 Unknown [id number] 2.16.84 0.1.123837.3.579.2.593 1936 Unknown [id number] 2.16.84 0.1.503613.3.579.2.593 1936 Unknown [id number] 2.16.84 0.1.954099.3.579.2.593 1936 Unknown [id number] 2.16.84 0.1.006863.3.579.2.593 1936 Unknown [id number] 2.16.84 0.1.964294.3.579.2.593 1936 Unknown [id number] 2.16.84 0.1.811865.3.579.2.593 1936 Unknown [id number] 2.16.84 0.1.547367.3.579.2.593 1936 Unknown [id number] 2.16.84 0.1.327701.3.579.2.593 1936 Unknown [id number] 2.16.8 40.1.575822.3.579.2.727 1936 Unknown [id number] 2.16.8 40.1.613307.3.579.2.727 1936 Unknown [id number] 2.16.8 40.1.799347.3.579.2.727 1936 Unknown [id number] 2.16.8 40.1.829665.3.579.2.727 1936 Unknown [id number] 2.16.8 40.1.916669.3.579.2.1286 1936 Unknown [id number] 2.16.8 40.1.668926.3.579.2.1286 Unknown [id number] 2.16.8 40.1.873134.3.579.2.531 Unknown [id number] 2.16.8 40.1.392942.3.579.2.531 Plan of Treatment Date Care Activity Detail Author Start: 03-30-2022 Bacteria identified in Urine by Culture [facility] Bacteria identified in Stool by Culture [facility] Bacteria identified in Urine by Culture [facility] Elastase.pancreatic [Mass/mass] in Stool [facility] Patient referral [facility] Work Phone: [facility] Problems Active Problems Problem Classification Problem Date [...] disease (20 sources) Atherosclerotic heart disease of andreafski coronary artery without angina pectoris; 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: [Coronary arteriosclerosis] Onset: 03-03-2022 Chronic Coronary atherosclerosis and other heart disease (1 source) Presence of aortocoronary bypass graft; 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: [PRESENCE AORTOCORONARY BYPASS GRAFT] Onset: 03-24-2022 Episodic Disorders of lipid metabolism (8 sources) Hyperlipidemia; 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: [Pure hypercholesterolemia, unspecified] Onset: [...] 11-10-2021 Chronic Genitourinary symptoms and ill-defined conditions (3 sources) Urge incontinence of urine 01-27-2023 Chronic Genitourinary symptoms and ill-defined conditions (20 sources) Dysuria; 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: [Sensation as if bladder still full] Onset: 12-27-2021 Episodic Headache; including migraine (4 sources) Headache; including migraine; 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: [HEADACHE UNSPECIFIED] Onset: 03-20-2022 Immunizations and screening for infectious disease (1 source) Encounter for immunization Episodic Intestinal infection (12 sources) Enterocolitis due to Clostridium difficile, not [...] 02-04-2022 Chronic Other aftercare (1 source) 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; 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: [OTH 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 FABRICATION SUPERVISOR CURRENT DRUG THERAPY] Onset: 03-24-2022 Episodic Other [...] feces] Episodic Other gastrointestinal disorders (3 sources) Full incontinence of feces; 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: [FULL INCONTINENCE OF FECES] Onset: 02-19-2022 Episodic Other gastrointestinal disorders (6 sources) Diarrhea, unspecified; 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: [Diarrhea] Onset: 05-28-2023 Episodic Other gastrointestinal disorders (2 sources) Other specified symptoms and signs involving the digestive system and abdomen; 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: [Alternating constipation and diarrhea] Episodic Other gastrointestinal disorders (1 source) Fecal urgency; 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: [Fecal urgency] Onset: 05-28-2023 Episodic Other non-epithelial cancer of skin (1 source) Personal history of other malignant neoplasm of skin; 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: [PERSONAL HX OTH MALIG NEOPLASM SKIN] Onset: 03-24-2022 Episodic Other nutritional; endocrine; and metabolic disorders (1 source) Abnormal weight loss; 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: [Abnormal weight loss] Onset: 05-28-2023 Episodic Other skin disorders (1 source) Disorder [...] Onset: 03-24-2022 Episodic Peripheral and visceral atherosclerosis (16 sources) 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; 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: [Atherosclerosis of andreafski arteries of left leg with ulceration of [...] colitis, unspecified] Onset: 10-29-2022 Unclassified (1 source) PAD Onset: 06-17-2023 Urinary tract infections (20 sources) Acute cystitis [...] Onset: 11-02-2021 Episodic Other aftercare (1 source) prison (current) 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; 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: [ASSISTED CURRENT USE OF ASPIRIN] Onset: 11-10-2021 Episodic Other diseases of veins and lymphatics (1 source) Venous insufficiency (chronic) (peripheral); 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: [VENOUS INSUFF CHRONIC PERIPHERAL] Onset: 11-10-2021 Episodic Unclassified (7 sources) Finding of sensation of bladder 05-19-2022 Unclassified (1 source) CONTACT W/AND (SUSP) EXPOS COVID-19; 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: [CONTACT W/AND (SUSP) EXPOS COVID-19] Onset: 08-12-2021 Procedures Date Procedure Procedure Detail Performing Clinician Start: 05-28-2023 Computed tomography of abdomen and pelvis with contrast MD Gypsy Mcmahon Work Phone: Start: 05-25-2023 E coli Shiga Toxin EIA MD Gypsy Mcmahon Work Phone: Start: 05-25-2023 Salmonella/Shigella Screen MD Gypsy Mcmahon Work Phone: Start: 05-06-2023 Bacteria identified in Urine by Culture MD Gypsy Mcmahon Work Phone: Start: 06-09-2022 Cystoscopy Marvin BOB Start: 02-16-2022 [...] region structur e (body structure) MALATHI VIEIRA Results Test Name Value Interpretation Reference Range Facility Blood Urea Nitrogenon 2023 Urea nitrogen [Mass/Vol] 16 mg/dL Normal 7-25 [facility] Comment on above: Order Comment: STAT FOR CT Performed By: #### B ANNE MARIE SHARMA #### [place] [id number] abdomen pelvis w conon CT abdomen pelvis w con [facility] [address] [place] [address] [place] [address] CT Scan Report Signed Patient: Delicia Hsu MR#: [id number] 4 : 1935 Acct:[id number] Age/Sex: 87 / F ADM Date: 05/28/23 Loc: CT Room: Type: [facility] Attending Dr: Monie Wallace DO Copies to: Monie Wallace DO Ordering Provider: Monie Wallace DO Date of Service: 05/28/23 CT/CT abdomen pelvis w con: R19.7 - Diarrhea, unspecified CT ABDOMEN AND PELVIS WITH INTRAVENOUS CONTRAST: CLINICAL HISTORY: Severe diarrhea for months. Weight loss. COMPARISON: None TECHNIQUE: Spiral images were obtained through the abdomen and pelvis following the administration of intravenous contrast. This CT exam was performed using one or more following dose reduction techniques: Automated exposure control, adjustment of the mA and/or kV according to patient size, or use of iterative reconstruction technique. FINDINGS: Lung Bases: [Mild lung scarring.] Organs:Pneumobilia. Gallbladder has been removed. No enhancing liver lesion. Portal vein spleen and adrenal glands unremarkable. Pancreas appears atrophic without focal abnormality. Cystic changes involving both kidneys. Abdominal aorta demonstrates moderate calcification without aneurysm.[ GI: Small hiatal hernia. Distal stomach is grossly unremarkable. Small bowel appears nondilated. Oral contrast has reached the distal small bowel. Colon demonstrates no suspicious wall thickening or inflammatory change. No colonic obstruction.[ Pelvis:[Suboptimal evaluation due to streak hardware artifact from the patient's left hip prosthesis. Visualized urinary bladder appears grossly unremarkable. The uterus appears to been removed. No adnexal mass.] Peritoneum/Retroperitoneu m:No free air, free fluid or lymphadenopathy.[ Abd wall/Bones:Abdominal wall demonstrated no acute findings. Osseous structures demonstrate degenerative change.[ CT/CT abdomen pelvis w con IMPRESSION: 1. No acute findings. 2. Pneumobilia. 3. Small hiatal hernia. Impression dictated by: Jm Yen Jr., D.O.05/28/2023 1:34 PM Dictation Location: [place] [address] Transcribed By: [facility] 05/28/23 1334 Dictated By: Jm Yen Jr, DO 05/28/23 1331 Signed By: 05/28/23 1334 Normal [facility] Creatinineon 05-28-2023 Creatinine [Mass/Vol] 1.07 mg/dL Normal 0.60-1.20 [facility] Comment on above: Order Comment: STAT FOR CT Performed By: #### B EDITH, CREAT #### [facility] [address] [place] [address] GFR/1.73 sq M.predicted MDRD (S/P/Bld) [Vol rate/Area] 50.587 mL/min/{1.73_m2} Normal [facility] Comment on above: Order Comment: STAT FOR CT Result Comment: PERF ORMED BY: [place] [address] PATHOLOGIST PLANT ACCOUNTANT TIEN VELASQUEZ M.D. Performed By: #### B EDITH, CREAT #### [facility] [address] [place] [address] Creatinine [Mass/volume] in Serum or PlasmaOrdered By: Monie Wallace on 05-28-2023 Creatinine [Mass/Vol] 1.07 mg/dL 0.60-1.20 [facility] No Panel InformationOrdered By: Monie Wallace on 05-28-2023 Estimated GFR (CKD-EPI) 50.587 mL/Min [facility] Creatinine Clearance (Chem N/A [facility] Urea nitrogen [Mass/volume] in Serum or PlasmaOrdered By: Monie Wallace on 05-28-2023 Urea nitrogen [Mass/Vol] 16 mg/dL 7- [facility] No Panel InformationOrdered By: Gypsy Mcmahon on 05-25-2023 E coli Shiga Toxin EIA [facility] Salmonella/Shigella Screen [facility] IgA [Mass/volume] in Serum o r Plasmaon 05-24-2023 IgA [Mass/Vol] 64 mg/dL 64-422 [facility] Comment on above: Performed at: [address] [id number] Director: Salomon Mcarthur PhD, Phone: [phone] No Panel Informationon 05-23 Endomysial IgA Antibody Negative Negative [facility] Serum gliadin peptide IgA an tibody assay (units/volume)on 05-24-2023 Gliadin peptide IgA Qn (S) 4 units 0-19 [facility] Comment on above: Negative 0 - 19 Weak Positive 20 - 30 Moderate to Strong Positive >30 Serum gliadin peptide IgG an tibody assay (units/volume)on 05-24-2023 Gliadin peptide IgG Qn (S) 2 units 0-19 [facility] Comment on above: Negative 0 - 19 Weak Positive 20 - 30 Moderate to Strong Positive >30 Serum tissue transglutaminas e (tTG) IgA antibody assay (units/volume)on 05-24-2023 tTG IgA Qn (S) <2 U/mL 0-3 [facility] Comment on above: Negative 0 - 3 Weak Positive 4 - 10 Positive >10 Tissue Transglutaminase (tTG) has been identified as the endomysial antigen. Studies have demonstr- ated that endomysial IgA antibodies have over 99% specificity for gluten sensitive enteropathy. Serum tissue transglutaminas e (tTG) IgG antibody assay (units/volume)on 05-24-2023 tTG IgG Qn (S) <2 U/mL 0-5 [facility] Comment on above: Negative 0 - 5 Weak Positive 6 - 9 Positive >9 [facility] 05-10-2023 Lab Reports [id number]#1.00TIFF Normal [facility] Lab Reports [id number]#1.00TIFF Normal [facility] Lab Reports [id number]#1.00TIFF Normal [facility] Lab Reportson 05-07-2023 Lab Reports [id number]#1.00TIFF Normal [facility] Automated urine specific gra vity by refractometryon 05-06-2023 Specific gravity Refractometry automated (U) [Rel density] 1.025 1.005-1.02 5 [facility] Bilirubin Auto test strip (U ) [Mass/Vol]on 05-06-2023 Bilirubin (U) [Mass/Vol] Negative NEGATIVE [facility] Color Auto (U)on 05-06-2023 Color (U) YELLOW YELLOW [facility] Ketones Auto test strip (U) [Mass/Vol]on 05-06-2023 Ketones (U) [Mass/Vol] Negative NEGATIVE [facility] - Microbiology an d Antimicrobial susceptibilityOrdered By: Gypsy Mcmahno on 05-06-2023 Bacteria identified Cx Nom (U) [facility] Protein Auto test strip (U) [Mass/Vol]on 05-06-2023 Protein (U) [Mass/Vol] Negative NEG/TRACE [facility] Specific gravity Auto test s trip (U) [Rel density]on 05-06-2023 Specific gravity (U) [Rel density] CLEAR CLEAR [facility] Urine glucose measurement by test strip (mass/volume)on 05-06-2023 Glucose Test strip (U) [Mass/Vol] Negative NEGATIVE [facility] Urine hemoglobin detection b y automated test stripon 05-06-2023 Hemoglobin Auto test strip Ql (U) TRACE-I NEGATIVE [facility] Urine nitrite detection by a utomated test stripon 05-06-2023 Nitrite Auto test strip Ql (U) SMALL NEGATIVE [facility] Nitrite Auto test strip Ql (U) Positive NEGATIVE [facility] Urobilinogen Auto test strip (U) [Mass/Vol]on 05-06-2023 Urobilinogen Qn (U) 0.2 {Gen'U}/dL 0.2-1.0 [facility] pH Auto test strip (U)on pH (U) 5.5 [pH] 5.0-9.0 [facility] No Panel Informationon 04-30 Clostridium difficile (PCR)(LAB) Negative NEGATIVE [facility] No Panel Informationon 04-06 Clostridium difficile (PCR)(LAB) Positive Negative [facility] Comment on above: Toxigenic C difficil e: PositiveEpidemic Strain Bl/NAP1/027: Presumptive NegativePerformed at: [address] [id number] Director: Salomon Mcarthur PhD, Phone: [phone] IntraOperative Documentson 0 02-12-2023 IntraOperative Documents [id number]#1.00TIFF Normal [facility] Physician Orderon 02-12-2023 Physician Order [id number]#1.00TIFF Normal [facility] Physician Order [id number]#1.00TIFF Normal [facility] ED Note-Physicianon 02-05-20 ED Note-Physician [id number]#1.00TIFF Normal [facility] Lab Reportson 02-04-2023 Lab Reports [id number]#1.00TIFF Normal [facility] Lab Reports [id number]#1.00TIFF Normal [facility] Lab Reports [id number]#1.00TIFF Normal [facility] Consent for Treatmenton 01-09 Consent for Treatment [id number]#1.00TIFF Normal [facility] Retail - Clinical Noteon Retail - Clinical Note [id number]#1.00TIFF Normal [facility] Lab Reportson 01-28-2023 Lab Reports [id number]#1.00TIFF Normal [facility] Physician Orderon 01-28-2023 Physician Order [id number]#1.00TIFF Normal [facility] Urology Office/Clinic Noteon 01-27-2023 Urology Office/Clinic Note [...] Urnls Dip Stick Auto w/o Microscopy POC 95784 2. 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 Case discussed w GI, Dr Brown's HEALTH CARE FACILITIES INSPECTOR Katie. he agrees w above plan. 3. [...] the risks of side effects etc. Orders: 36783 Measure Post Void residual urine and/or bladder capacity by US- non-imaging Total time spent reviewing previous notes/results/external documents, preparing the chart, conducting the encounter with the patient and family, ordering tests/medications, and documenting the encounter was 40 minutes. Follow-up With When Contact Information MALATHI VIEIRA PA-C, URL [address] [place] [address] [phone] Additional Instructions: f/u in Spring Patient Education Urinary Tract Infection, Adult, [id number] Documentation recorded by the scribe Caprice Stratton accurately reflects the services(s) I performed and decisions made by me. Authenticated by Malathi Vieira PA-C on 01/27/2023 13:56:47. I, Caprice Stratton, personally scribed for Malathi Vieira PA-C on (more content not included)... Normal [facility] Comment on above: Result Comment: Elec tronically Signed By: MALATHI VIEIAR PA-C\.br\Date and Time Signed: 01/27/23 13:57 EST\.br\Electronically Co-Signed By: Caprice Stratton\.br\Date and Time Co-Signed: 01/26/23 16:09 EST Ambulatory Visit Summaryon 1 03-29-2022 Ambulatory Visit Summary DELICIA HSU :1935 Visit Date:01/26/2023 Ambulatory Visit Instructions Your Diagnosis Recurrent UTI Feeling of incomplete bladder emptying Colitis Tests Performed Urnls Dip Stick Auto w/o Microscopy POC 48902 Your Care Team Attending Physician - MALATHI VIEIRA PA-C Primary Care Physician - GYPSY MCMAHON MD This Is Your Medications List Contact prescribing physician if questions or concerns alosetron (alosetron 0.5 mg oral tablet) bifidobacterium-lactobaci llus (Nature's Bounty Probiotic) bismuth subsalicylate (Pepto-Bismol) budesonide [...] [facility] Center Lab Report[facility] 01-26-2023 Lab Reports [id number]#1.00TIFF [facility] Patient Educationon 01-27-20 Patient Education Obstetrics [...] these instructions at home: Medicines ? Take momc-lfq-baqrdvm and prescription medicines only as told by [...] provider. Document Revised: 09/06/2020 Document Reviewed: 09/06/2020 [employer] Patient Education ? 2022 [employer] [facility] Lab Reportson 01-25-2023 Lab Reports [id number]#1.00TIFF [facility] Lab Reports [id number]#1.00TIFF [facility] Lab Reportson 12-04-2022 Lab Reports [id number]#1.00TIFF [facility] Physician Orderon 12-01-2022 Physician Order [id number]#1.00TIFF [facility] Office Visiton 11-11-2022 Follow-up visit [id number] Delicia Hsu 1935 F Date Provider Department Center 11/11/2022 [facility] Family History Problem Relation Age of Onset Aneurysm Mother Heart attack Father Family Status - Relation Status Age at Mother Father Level of Service:56546 UT OFFICE/OUTPATIENT ESTABLISHED LOW MDM 20-29 MIN Normal [facility] Lab Reportson 09-25-2022 Lab Reports [id number]#1.00CD:12 7 Normal [facility] Lab Reports [id number]#1.00CD:12 7 Normal [facility] Physician Orderon 09-23-2022 Physician Order [id number]#1.00CD:12 7 Normal [facility] Screenson 09-23-2022 Screens [id number]#1.00CD:12 7 Normal [facility] Ambulatory Visit Summaryon 0 09-22-2022 Ambulatory Visit [...] ZAZUETA, MALATHI Olvera Where: [facility] Normal [facility] Patient Educationon 09-23-19 Patient Education Obstetrics and [...] these instructions at home: Medicines ? Take wpod-zbg-qcbfqfz and prescription medicines only as told by [...] provider. Document Revised: 09/06/2020 Document Reviewed: 09/06/2020 [employer] Patient Education ? 2022 [employer]. Normal [facility] Urology Office/Clinic Noteon 09-22-2022 Urology Office/Clinic Note [...] symptoms not resolved. C&S this morning at [facility] ( not finalized) UTI symptoms Memory [...] Assessment/Plan PRW pt. S/p TVT sling 2009 02. Recurrent UTI (N39.0: Urinary tract infection, site not specified) S/p Cysto 06/09/22 - mildly prolapsed urethra, abnormal and trabeculated bladder, moderate A.V. Recurring UTI. Off and on for 2 weeks PCP did U/A, given Bactrim x 5d, symptoms not resolved per daughter. C&S this morning at [facility] (not finalized) - will call pt [...] up having to send a U.Cx to [facility] so we can review the results. 2. [...] acknowledges understanding. Follow-up With When Contact Information DEB ZAZUETA, MALATHI Olvera, URL [address] [place] [address] Additional Instructions: Patient Education Urinary Tract Infection, Adult, [id number]-ug-[id number] I, Jazlyn Lucero, personally scribed for Malathi Vieira PA-C on 09/22/2022 15:36:00. . Documentation recorded by the scribwade Lucero accurately reflects the services(s) I performed [...] 3 mg (more content not included)... Normal [facility] Comment on above: Result Comment: Elec tronically Signed By: MALATHI VIEIRA PA-C\.br\Date and Time Signed: 09/22/22 16:16 EDT\.br\Electronically Co-Signed By: Jazlyn Lucero\.br\Date and Time Co-Signed: 09/22/22 15:38 EDT Lab Reportson 07-02-2022 Lab Reports [id number] Normal [facility] Office Visiton 06-30-2022 Follow-up visit [id number] Delicia Hsu F 1935 F Date Provider Department Center 06/30/2022 Kulwinder-JAKE BARRY Family History Problem Relation Age of Onset Aneurysm Mother Heart attack Father Family Status - Relation Status Age at Mother Father Level of Service:89988 UT OFFICE/OUTPATIENT NEW MODERATE MDM 45-59 MINUTES Normal [facility] CT ABD/PELVIS WO CONon 05-27 CT ABD/PELVIS [...] by: MI NUÑEZ Date: 2022-05-27 10:34 Normal [facility] CULTURE URINEon 05-14-2022 CULTURE URINE Culture [...] 0.5 S F Nitrofurantoin 65 I F Trimethoprim/Sulfamethoxa zole <=20 S F Normal [facility] Comment on above: Performed By: #### U RCX #### [facility] [address] [address] [address] Anthony Bonilla UA RANDOMon 05-11-2022 Bilirubin Ql (U) Negative Normal NEGATIVE [facility] Comment on above: Performed By: #### U RCX #### [facility] [address] [place] [address] Dr. Anthony Bonilla Clarity (U) SL CLOUDY Abnormal CLEAR [facility] Comment on above: Performed By: #### U RCX #### [facility] [address] [place] [address] Dr. Anthony Bonilla Color (U) LT. YELLOW Normal YELLOW [facility] Comment on above: Performed By: #### U RCX #### [facility] [address] [place] [address] Dr. Anthony Bonilla Glucose Ql (U) Negative Normal NEGATIVE [facility] Comment on above: Performed By: #### U RCX #### [facility] [address] [place] [address] Dr. Anthony Bonilla Hemoglobin Ql (U) Negative Normal NEGATIVE [facility] Comment on above: Performed By: #### U RCX #### [facility] [address] [place] [address] Dr. Anthony Bonilla Ketones Ql (U) Negative Normal NEGATIVE The [facility] Comment on above: Performed By: #### U RCX #### [facility] [address] [place] [address] Dr. Anthony Bonilla LEUKOCYTES MODERATE Abnormal NEGATIVE [facility] Comment on above: Performed By: #### U RCX #### [facility] [address] [place] [address] Dr. Anthony Bonilla Nitrite Ql (U) Negative Normal NEGATIVE [facility] Comment on above: Performed By: #### U RCX #### [facility] [address] [place] [address] Dr. Anthony Bonilla pH (U) 5.5 [pH] Normal 5-9 [facility] Comment on above: Performed By: #### U RCX #### [facility] [address] [address] [address] Anthony Bonilla SPEC GRAVITY 1.020 Normal 1.005-<=1. 025 [facility] Comment on above: Performed By: #### U RCX #### [facility] [address] [address] [address] Anthony Bonilla UA PROTEIN Negative Normal NEGATIVE/ TRACE [facility] Comment on above: Performed By: #### U RCX #### [facility] [address] [address] [address] Anthony Bonilla Urobilinogen Qn (U) 0.2 {Gen'U}/dL Normal 0.2 - 1. 0 [facility] Comment on above: Performed By: #### U RCX #### [facility] [address] [place] [address] Dr. Anthony Bonilla CULTURE URINEon 05-01-2022 CULTURE [...] <=0.12 S F Nitrofurantoin 32 S F Trimethoprim/Sulfamethoxa zole <=20 S F ORGANISM 2 Enterobacter aerogenes ANTIBIOTIC M.I.C RX STATUS Piperacillin/Tazobactam <=4 S F Cefazolin <=4 R F Ceftazidime <=1 S F Ceftriaxone <=1 S F Ertapenem <=0.5 S F Imipenem <=0.25 S F Amikacin <=2 S F Gentamicin <=1 S F Tobramycin <=1 S F Ciprofloxacin <=0.25 S F Levofloxacin <=0.12 S F Nitrofurantoin 64 I F Trimethoprim/Sulfamethoxa zole <=20 S F Normal [facility] Comment on above: Performed By: #### U RCX #### [facility] [address] [place] [address] Dr. Anthony Bonilla CULTURE URINEon 04-16-2022 CULTURE [...] R F Nitrofurantoin 64 I F Normal [facility] Comment on above: Performed By: #### U RCX #### [facility] [address] [place] [address] Dr. Anthony Bonilla UA RANDOMon 04-14-2022 Bilirubin Ql (U) Negative Normal NEGATIVE [facility] Comment on above: Performed By: #### U RCX #### [facility] [address] [place] [address] Dr. Anthony Bonilla Clarity (U) CLEAR Normal CLEAR [facility] Comment on above: Performed By: #### U RCX #### [facility] [address] [place] [address] Dr. Anthony Bonilla Color (U) LT. YELLOW Normal YELLOW [facility] Comment on above: Performed By: #### U RCX #### [facility] [address] [place] [address] Dr. Anthony Bonilla Glucose Ql (U) Negative Normal NEGATIVE [facility] Comment on above: Performed By: #### U RCX #### [facility] [address] [place] [address] Dr. Anthony Bonilla Hemoglobin Ql (U) Negative Normal NEGATIVE [facility] Comment on above: Performed By: #### U RCX #### [facility] [address] [place] [address] Dr. Anthony Bonilla Ketones Ql (U) Negative Normal NEGATIVE [facility] Comment on above: Performed By: #### U RCX #### [facility] [address] [place] [address] Dr. Anthony Bonilla LEUKOCYTES MODERATE Abnormal NEGATIVE [facility] Comment on above: Performed By: #### U RCX #### [facility] [address] [place] [address] Dr. Anthony Bonilla Nitrite Ql (U) Negative Normal NEGATIVE [facility] Comment on above: Performed By: #### U RCX #### [facility] [address] [place] [address] Dr. Anthony Bonilla pH (U) 5.5 [pH] Normal 5-9 [facility] Comment on above: Performed By: #### U RCX #### [facility] [address] [place] [address] Dr. Anthony Bonilla SPEC GRAVITY 1.020 Normal 1.005-<=1. 025 [facility] Comment on above: Performed By: #### U RCX #### [facility] [address] [place] [address] Dr. Anthony Bonilla UA PROTEIN Negative Normal NEGATIVE/ TRACE [facility] Comment on above: Performed By: #### U RCX #### [facility] [address] [place] [address] Dr. Anthony Bonilla Urobilinogen Qn (U) 0.2 {Gen'U}/dL Normal 0.2 - 1. 0 [facility] Comment on above: Performed By: #### U RCX #### [facility] [address] [place] [address] Dr. Anthony Bonilla Urinalysis - DIPSTICKon 03-12 Appearance (U) clear NSL [employer] Other Bilirubin Ql (U) small [employer] Other Color (U) dark yellow [employer] Other Glucose Ql (U) Negative [employer] Other Hemoglobin Ql (U) Negative [employer] Other Ketones Ql (U) trace [employer] Other Leukocyte esterase Test strip Ql (U) small [employer] Other Nitrite Ql (U) Negative [employer] Other pH (U) 5.0 [pH] [employer] Other Protein Ql (U) Negative [employer] Other Specific gravity (U) [Rel density] 1.015 [employer] Other Urobilinogen (U) [Mass/Vol] 0.2 mg/dL [employer] Other Urinalysis - DIPSTICK Nor [employer]NP [employer] Other Urine Cultureon 03-30-2022 Bacteria identified Cx Nom (U) [employer] Other Urine Culture 10,000 [employer] Other CULTURE URINEon 03-23-2022 CULTURE URINE Isolate 1 Pseudomonas aeruginosa >100,000 cfu/mL of ORGANISM 1 Pseudomonas aeruginosa ANTIBIOTIC M.I.C RX STATUS Piperacillin/Tazobactam 8 S F Ceftazidime 4 S F Imipenem 1 S F Amikacin <=2 S F Gentamicin <=1 S F Tobramycin <=1 S F Ciprofloxacin <=0.25 S F Levofloxacin 0.5 S F Normal [facility] Comment on above: Performed By: #### U RCX #### [facility] [address] [address] [address] Anthony Bonilla CARDIAC DARWIN ADMITon 023 CK [Catalytic activity/Vol] 137 U/L Normal 26-192 [facility] Comment on above: Performed By: #### U RCX #### [facility] [address] [address] [address] Anthony Bonilla CK.MB [Mass/Vol] 1.05 ng/mL Normal <=3.60 [facility] Comment on above: Performed By: #### U RCX #### [facility] [address] [place] [address] Dr. Anthony Bonilla HSTROP 17.6 pg/mL Normal 4.0-51.3 [facility] Comment on above: Result Comment: CUT- OFF POINTS HAVE BEEN ESTABLISHED BASED ON THE FOURTH UNIVERSAL DEFINITIONS OF MYOCARDIAL INFARCTION. THE UPPER REFERENCE LIMIT (URL) OF TROPONIN, DEFINED THE 99TH PERCENTILE OF cTnI DISTRIBUTION IN A REFERENCE POPULATION, HAS BEEN CONFIRMED THE DECISION THRESHOLD FOR [place] DIAGNOSIS. Performed By: #### U RCX #### [facility] [address] [place] [address] Dr. Anthony Bonilla CANDIDA 72 ng/mL Normal 9-82 [facility] Comment on above: Performed By: #### U RCX #### [facility] [address] [place] [address] Dr. Anthony Bonilla CBC AUTO DIFFon 03-20-2022 BASO # 0.0 103/ul Normal 0.0-0.1 [facility] Comment on above: Performed By: #### C BC #### [facility] [address] [place] [address] Dr. Anthony Bonilla Basophils/100 WBC (Bld) 0.3 % Normal 0.2-2.0 [facility] Comment on above: Performed By: #### C BC #### [facility] [address] [place] [address] Dr. Anthony Bonilla EO # 0.0 103/ul Normal 0.0-0.7 [facility] Comment on above: Performed By: #### C BC #### [facility] [address] [place] [address] Dr. Anthony Bonilla Eosinophils/100 WBC (Bld) 0.1 % Critically low 0.9-7.0 [facility] Comment on above: Performed By: #### C BC #### [facility] [address] [place] [address] Dr. Anthony Bonilla Erythrocyte distribution width (RBC) [Ratio] 15.9 % Critically high 11.0-15.0 [facility] Comment on above: Performed By: #### C BC #### [facility] [address] [address] [address] Anthony Bonilla Hematocrit (Bld) [Volume fraction] 33.6 % Critically low 36.0-48.0 [facility] Comment on above: Performed By: #### C BC #### [facility] [address] [address] [address] Anthony Bonilla Hemoglobin (Bld) [Mass/Vol] 11.2 g/dL Critically low 12.0-16.0 [facility] Comment on above: Performed By: #### C BC #### [facility] [address] [address] [address] Anthony Bonilla IG # 0.04 10e3/ul Critically high 0.00-0.03 [facility] Comment on above: Performed By: #### C BC #### [facility] [address] [place] [address] Dr. Anthony Bonilla IG % 0.3 % Normal 0.0-0.5 [facility] Comment on above: Performed By: #### C BC #### [facility] [address] [place] [address] Dr. Anthony Bonilla LYMPH # 0.8 103/ul Critically low 1.2-3.8 [facility] Comment on above: Performed By: #### C BC #### [facility] [address] [place] [address] Dr. Anthony Bonilla Lymphocytes/100 WBC (Bld) 6.4 % Critically low 20.5-60.0 [facility] Comment on above: Performed By: #### C BC #### [facility] [address] [place] [address] Dr. Anthony Bonilla MANUAL DIFF REQ NO Normal [facility] Comment on above: Performed By: #### C BC #### [facility] [address] [place] [address] Dr. Anthony Bonilla MCH (RBC) [Entitic mass] 28.9 pg Normal 26.7-34.0 [facility] Comment on above: Performed By: #### C BC #### [facility] [address] [place] [address] Dr. Anthony Bonilla MCHC (RBC) [Mass/Vol] 33.3 g/dL Normal 29.9-35.2 [facility] Comment on above: Performed By: #### C BC #### [facility] [address] [address] [address] Anthony Bonilla MCV (RBC) [Entitic vol] 86.8 fL Normal 81.0-99.0 [facility] Comment on above: Performed By: #### C BC #### [facility] [address] [address] [address] Anthony Bonilla MONO # 1.1 103/ul Critically high 0.3-0.8 [facility] Comment on above: Performed By: #### C BC #### [facility] [address] [address] [address] Anthony Bonilla Monocytes/100 WBC (Bld) 8.3 % Normal 1.7-12.0 [facility] Comment on above: Performed By: #### C BC #### [facility] [address] [address] [address] Anthony Bonilla NEUT # 11.2 103/ul Critically high 1.4-6.5 [facility] Comment on above: Performed By: #### C BC #### [facility] [address] [address] [address] Anthony Bonilla Neutrophils/100 WBC (Bld) 84.6 % Critically high 43.0-75.0 [facility] Comment on above: Performed By: #### C BC #### [facility] [address] [address] [address] Anthony Bonilla Platelet mean volume (Bld) [Entitic vol] 9.7 fL Normal 9.5-13.5 [facility] Comment on above: Performed By: #### C BC #### [facility] [address] [address] [address] Anthony Bonilla PLT 274 103/ul Normal 150-450 [facility] Comment on above: Performed By: #### C BC #### [facility] [address] [address] [address] Anthony Bonilla RBC 3.87 106/ul Critically low 4.20-5.40 [facility] Comment on above: Performed By: #### C BC #### [facility] [address] [address] [address] Anthony Bonilla WBC 13.2 103/ul Critically high 4.0-11.0 [facility] Comment on above: Performed By: #### C BC #### [facility] [address] [address] HEAD WO CONon [...] CLAU SHAH Date: 2022-03-20 20:30 Normal [facility] ER URINE PROFILEon 3 Bilirubin Ql (U) Negative Normal NEGATIVE [facility] Comment on above: Performed By: #### C BC #### [facility] [address] [place] [address] Dr. Anthony Bonilla Clarity (U) CLEAR Normal CLEAR [facility] Comment on above: Performed By: #### C BC #### [facility] [address] [place] [address] Dr. Anthony Bonilla Color (U) LT. YELLOW Normal YELLOW [facility] Comment on above: Performed By: #### C BC #### [facility] [address] [place] [address] Dr. Anthony BANGURA A micrscopic examina tion will be performed if indicated. Normal [facility] Comment on above: Performed By: #### C BC #### [facility] [address] [place] [address] Dr. Anthony Bonilla Glucose Ql (U) Negative Normal NEGATIVE The [facility] Comment on above: Performed By: #### C BC #### [facility] [address] [place] [address] Dr. Anthony Bonilla Hemoglobin Ql (U) LARGE Abnormal NEGATIVE [facility] Comment on above: Performed By: #### C BC #### [facility] [address] [place] [address] Dr. Anthony Bonilla Ketones Ql (U) Negative Normal NEGATIVE [facility] Comment on above: Performed By: #### C BC #### [facility] [address] [place] [address] Dr. Anthony Bonilla LEUKOCYTES SMALL Abnormal NEGATIVE [facility] Comment on above: Performed By: #### C BC #### [facility] [address] [place] [address] Dr. Anthony Bonilla Nitrite Ql (U) Positive Abnormal NEGATIVE [facility] Comment on above: Performed By: #### C BC #### [facility] [address] [place] [address] Dr. Anthony Bonilla pH (U) 7.0 [pH] Normal 5-9 [facility] Comment on above: Performed By: #### C BC #### [facility] [address] [place] [address] Dr. Anthony Bonilla Protein (U) [Mass/Vol] 30 mg/dL Abnormal NEGAT JAMAR/ TRACE [facility] Comment on above: Performed By: #### C BC #### [facility] [address] [place] [address] Dr. Anthony Bonilla SPEC GRAVITY 1.015 Normal 1.005-<=1. 025 [facility] Comment on above: Performed By: #### C BC #### [facility] [address] [place] [address] Dr. Anthony Bonilla UR MICRO IND INDICATED Normal [facility] Comment on above: Performed By: #### C BC #### [facility] [address] [place] [address] Dr. Anthony Bonilla Urobilinogen Qn (U) 1.0 {Gen'U}/dL Normal 0.2 - 1. 0 [facility] Comment on above: Performed By: #### C BC #### [facility] [address] [place] [address] Dr. Anthony Bonilla PROF 14(COMP METB)on 023 Albumin [Mass/Vol] 3.4 g/dL Normal 3.4-5.0 [facility] Comment on above: Performed By: #### U RCX #### [facility] [address] [place] [address] Dr. Anthony Bonilla Albumin/Globulin [Mass ratio] 1.2 {ratio} Normal [facility] Comment on above: Performed By: #### U RCX #### [facility] [address] [place] [address] Dr. Anthony Bonilla ALP [Catalytic activity/Vol] 26 U/L Critically low 46-116 [facility] Comment on above: Performed By: #### U RCX #### [facility] [address] [place] [address] Dr. Anthony Bonilla ALT [Catalytic activity/Vol] 21 U/L Normal 14-59 [facility] Comment on above: Performed By: #### U RCX #### [facility] [address] [place] [address] Dr. Anthony Bonilla Anion gap [Moles/Vol] 13.7 mmol/L Normal [facility] Comment on above: Performed By: #### U RCX #### [facility] [address] [address] [address] Anthony Bonilla AST [Catalytic activity/Vol] 20 U/L Normal 15-37 [facility] Comment on above: Performed By: #### U RCX #### [facility] [address] [place] [address] Dr. Anthony Bonilla Bilirubin [Mass/Vol] 1.2 mg/dL Critically high 0.2-1.0 [facility] Comment on above: Performed By: #### U RCX #### [facility] [address] [place] [address] Dr. Anthony Bonilla Calcium [Mass/Vol] 9.4 mg/dL Normal 8.5-10.1 [facility] Comment on above: Performed By: #### U RCX #### [facility] [address] [address] [address] Anthony Bonilla Chloride [Moles/Vol] 99 mmol/L Normal 98-107 [facility] Comment on above: Performed By: #### U RCX #### [facility] [address] [place] [address] Dr. Anthony Bonilla CO2 [Moles/Vol] 29.1 mmol/L Normal 21.0-32.0 [facility] Comment on above: Performed By: #### U RCX #### [facility] [address] [address] [address] Anthony Bonilla Creatinine [Mass/Vol] 1.02 mg/dL Normal 0.55-1.02 [facility] Comment on above: Performed By: #### U RCX #### [facility] [address] [place] [address] Dr. Anthony Bonilla EGFR-AF IRAQI >60 Normal >=60 [facility] Comment on above: Performed By: #### U RCX #### [facility] [address] [address] [address] Anthony Bonilla EGFR-NON AF IRAQI 52 mL/min/1.73m2 Critically low >=60 [facility] Comment on above: Performed By: #### U RCX #### [facility] [address] [place] [address] Dr. Anthony Bonilla Globulin (S) [Mass/Vol] 2.9 g/dL Normal [facility] Comment on above: Performed By: #### U RCX #### [facility] [address] [address] [address] Anthony Bonilla Glucose [Mass/Vol] 98 mg/dL Normal 74-106 [facility] Comment on above: Performed By: #### U RCX #### [facility] [address] [place] [address] Dr. Anthony Bonilla Potassium [Moles/Vol] 3.8 mmol/L Normal 3.5-5.1 [facility] Comment on above: Performed By: #### U RCX #### [facility] [address] [place] [address] Dr. Anthony Bonilla Protein [Mass/Vol] 6.3 g/dL Critically low 6.4-8.2 Th [facility] Comment on above: Performed By: #### U RCX #### [facility] [address] [place] [address] Dr. Anthony Bonilla Sodium [Moles/Vol] 138 mmol/L Normal 136-145 [facility] Comment on above: Performed By: #### U RCX #### [facility] [address] [place] [address] Dr. Anthony Bonilla Urea nitrogen [Mass/Vol] 16.0 mg/dL Normal 7.0-18.0 [facility] Comment on above: Performed By: #### U RCX #### [facility] [address] [place] [address] Dr. Anthony Bonilla Urea nitrogen/Creatinine [Mass ratio] 15.7 mg/mg Normal [facility] Comment on above: Performed By: #### U RCX #### [facility] [address] [place] [address] Dr. Anthony Bonilla URINE MICROSCOPIC ONLYon 02- 10-2023 BACTERIA LARGE Abnormal NONE SEEN [facility] Comment on above: Performed By: #### C BC #### [facility] [address] [place] [address] Dr. Anthony Bonilla Bacteria identified Cx Nom (U) INDICATED Normal [facility] Comment on above: Performed By: #### C BC #### [facility] [address] [place] [address] Dr. Anthony Bonilla CAST NONE SEEN Normal NONE SEEN [facility] Comment on above: Performed By: #### C BC #### [facility] [address] [place] [address] Dr. Anthony Bonilla Crystals LM Nom (Urine sed) NONE SEEN Normal NONE SEEN [facility] Comment on above: Performed By: #### C BC #### [facility] [address] [place] [address] Dr. Anthony Bonilla Epithelial cells LM Ql (Urine sed) FEW Abnormal NONE SEEN /RARE [facility] Comment on above: Performed By: #### C BC #### [facility] [address] [place] [address] Dr. Anthony Bonilla MUCOUS NONE SEEN Normal NONE SEEN [facility] Comment on above: Performed By: #### C BC #### [facility] [address] [place] [address] Dr. Anthony Bonilla RBC 10-20 Abnormal 0-2 [facility] Comment on above: Performed By: #### C BC #### [facility] [address] [place] [address] Dr. Anthony Bonilla WBC 50-75 Abnormal NONE SEEN [facility] Comment on above: Performed By: #### C BC #### [facility] [address] [place] [address] Dr. Anthony Bonilla CALPROTECTIN, FECALon 2022 Calprotectin, Fecal 416 ug/g Critically high 0-120 [facility] Comment on above: Result Comment: Conc entration Interpretation Follow-Up <16 - 50 ug/g Normal None >50 -120 ug/g Borderline Re-evaluate in 4-6 weeks >120 ug/g Abnormal Repeat as clinically indicated Performed By: #### U RCX #### [facility] [address] [place] [address] Dr. Anthony Bonilla QUANTIFERON TB GOLD PLUSon 0 02-19-2022 QuantiFERON Criteria Comment Normal [facility] Comment on above: Result Comment: Butch [...] test. Performed By: #### U RCX #### [facility] [address] [place] [address] Dr. Anthony Bonilla QuantiFERON Incubation Incubation performed. Normal [facility] Comment on above: Performed By: #### U RCX #### [facility] [address] [place] [address] Dr. Anthony Bonilla QuantiFERON Mitogen Value >10.00 Normal [facility] Comment on above: Performed By: #### U RCX #### [facility] [address] [place] [address] Dr. Anthony Bonilla QuantiFERON Nil Value 0.07 IU/mL Normal [facility] Comment on above: Performed By: #### U RCX #### [facility] [address] [place] [address] Dr. Anthony Bonilla QuantiFERON TB1 Ag Value 0.08 IU/mL Normal [facility] Comment on above: Performed By: #### U RCX #### [facility] [address] [place] [address] Dr. Anthony Bonilla QuantiFERON TB2 Ag Value 0.07 IU/mL Normal [facility] Comment on above: Performed By: #### U RCX #### [facility] [address] [place] [address] Dr. Anthony Bonilla QuantiFERON-TB Gold Plus Negative Normal Negative [facility] Comment on above: Result Comment: No r esponse to M tuberculosis antigens detected. Infection with M tuberculosis is unlikely, but high risk individuals should be considered for additional testing (ATS/IDSA/CDC Clinical Practice Guidelines, 2017). The reference range is an Antigen minus Nil result of <0.35 IU/mL. Chemiluminescence immunoassay methodology Performed By: #### U RCX #### [facility] [address] [place] [address] Dr. Anthony Bonilla HEP B SURFACE ANTIGEN SCREEN on 02-18-2022 HBsAg Screen Negative Normal Negative [facility] Comment on above: Performed By: #### U RCX #### [facility] [address] [place] [address] Dr. Anthony Bonilla HEPATITIS B CORE, IgMon 02-08 Hep B Core Ab, IgM Negative Normal Negative [facility] Comment on above: Performed By: #### U RCX #### [facility] [address] [place] [address] Dr. Anthony Bonilla HEPATITIS B SURFACE ANTIBODY , QUANTon 02-18-2022 Hepatitis B Surf AB Quant <3.1 Critically low Immunity>9 .9 [facility] Comment on above: Result Comment: Stat us of Immunity Anti-HBs Level Inconsistent with Immunity 0.0 - 9.9 Consistent with Immunity >9.9 Performed By: #### C BC #### [facility] [address] [place] [address] Dr. Anthony Bonilla CBC AUTO DIFFon 02-17-2022 BASO # 0.0 103/ul Normal 0.0-0.1 [facility] Comment on above: Performed By: #### U RCX #### [facility] [address] [place] [address] Dr. Anthony Bonilla Basophils/100 WBC (Bld) 0.4 % Normal 0.2-2.0 [facility] Comment on above: Performed By: #### U RCX #### [facility] [address] [place] [address] Dr. Anthony Bonilla EO # 0.0 103/ul Normal 0.0-0.7 [facility] Comment on above: Performed By: #### U RCX #### [facility] [address] [address] [address] Anthony Bonilla Eosinophils/100 WBC (Bld) 0.5 % Critically low 0.9-7.0 [facility] Comment on above: Performed By: #### U RCX #### [facility] [address] [place] [address] Dr. Anthony Bonilla Erythrocyte distribution width (RBC) [Ratio] 14.7 % Normal 11.0-15.0 [facility] Comment on above: Performed By: #### U RCX #### [facility] [address] [place] [address] Dr. Anthony Bonilla Hematocrit (Bld) [Volume fraction] 33.2 % Critically low 36.0-48.0 [facility] Comment on above: Performed By: #### U RCX #### [facility] [address] [place] [address] Dr. Anthony Bonilla Hemoglobin (Bld) [Mass/Vol] 11.0 g/dL Critically low 12.0-16.0 [facility] Comment on above: Performed By: #### U RCX #### [facility] [address] [place] [address] Dr. Anthony Bonilla IG # 0.02 10e3/ul Normal 0.00-0.03 [facility] Comment on above: Performed By: #### U RCX #### [facility] [address] [place] [address] Dr. Anthony Bonilla IG % 0.2 % Normal 0.0-0.5 [facility] Comment on above: Performed By: #### U RCX #### [facility] [address] [place] [address] Dr. Anthony Bonilla LYMPH # 1.3 103/ul Normal 1.2-3.8 [facility] Comment on above: Performed By: #### U RCX #### [facility] [address] [place] [address] Dr. Anthony Bonilla Lymphocytes/100 WBC (Bld) 14.8 % Critically low 20.5-60.0 [facility] Comment on above: Performed By: #### U RCX #### [facility] [address] [place] [address] Dr. Anthony Bonilla MANUAL DIFF REQ NO Normal [facility] Comment on above: Performed By: #### U RCX #### [facility] [address] [place] [address] Dr. Anthony Bonilla MCH (RBC) [Entitic mass] 29.0 pg Normal 26.7-34.0 [facility] Comment on above: Performed By: #### U RCX #### [facility] [address] [place] [address] Dr. Anthony Bonilla MCHC (RBC) [Mass/Vol] 33.1 g/dL Normal 29.9-35.2 [facility] Comment on above: Performed By: #### U RCX #### [facility] [address] [place] [address] Dr. Anthony Bonilla MCV (RBC) [Entitic vol] 87.6 fL Normal 81.0-99.0 [facility] Comment on above: Performed By: #### U RCX #### [facility] [address] [place] [address] Dr. Anthony Bonilla MONO # 0.8 103/ul Normal 0.3-0.8 [facility] Comment on above: Performed By: #### U RCX #### [facility] [address] [place] [address] Dr. Anthony Bonilla Monocytes/100 WBC (Bld) 9.6 % Normal 1.7-12.0 [facility] Comment on above: Performed By: #### U RCX #### [facility] [address] [place] [address] Dr. Anthony Bonilla NEUT # 6.3 103/ul Normal 1.4-6.5 [facility] Comment on above: Performed By: #### U RCX #### [facility] [address] [place] [address] Dr. Anthony Bonilla Neutrophils/100 WBC (Bld) 74.5 % Normal 43.0-75.0 [facility] Comment on above: Performed By: #### U RCX #### [facility] [address] [address] [address] Anthony Bonilla Platelet mean volume (Bld) [Entitic vol] 9.8 fL Normal 9.5-13.5 [facility] Comment on above: Performed By: #### U RCX #### [facility] [address] [address] [address] Anthony Bonilla PLT 318 103/ul Normal 150-450 [facility] Comment on above: Performed By: #### U RCX #### [facility] [address] [address] [address] Anthony Bonilla RBC 3.79 106/ul Critically low 4.20-5.40 [facility] Comment on above: Performed By: #### U RCX #### [facility] [address] [place] [address] Dr. Anthony Bonilla WBC 8.5 103/ul Normal 4.0-11.0 [facility] Comment on above: Performed By: #### U RCX #### [facility] [address] [place] [address] Dr. Anthony Bonilla PROF 14(COMP METB)on 023 Albumin [Mass/Vol] 3.6 g/dL Normal 3.4-5.0 [facility] Comment on above: Performed By: #### U RCX #### [facility] [address] [place] [address] Dr. Anthony Bonilla Albumin/Globulin [Mass ratio] 1.2 {ratio} Normal [facility] Comment on above: Performed By: #### U RCX #### [facility] [address] [address] [address] Anthony Bonilla ALP [Catalytic activity/Vol] 27 U/L Critically low 46-116 [facility] Comment on above: Performed By: #### U RCX #### [facility] [address] [address] [address] Anthony Bonilla ALT [Catalytic activity/Vol] 21 U/L Normal 14-59 [facility] Comment on above: Performed By: #### U RCX #### [facility] [address] [address] [address] Anthony Bonilla Anion gap [Moles/Vol] 13.5 mmol/L Normal [facility] Comment on above: Performed By: #### U RCX #### [facility] [address] [address] [address] Anthony Bonilla AST [Catalytic activity/Vol] 19 U/L Normal 15-37 [facility] Comment on above: Performed By: #### U RCX #### [facility] [address] [address] [address] Anthony Bonilla Bilirubin [Mass/Vol] 0.6 mg/dL Normal 0.2-1.0 [facility] Comment on above: Performed By: #### U RCX #### [facility] [address] [address] [address] Anthony Bonilla Calcium [Mass/Vol] 9.2 mg/dL Normal 8.5-10.1 [facility] Comment on above: Performed By: #### U RCX #### [facility] [address] [address] [address] Anthony Bonilla Chloride [Moles/Vol] 104 mmol/L Normal 98-107 [facility] Comment on above: Performed By: #### U RCX #### [facility] [address] [address] [address] Anthony Bonilla CO2 [Moles/Vol] 28.9 mmol/L Normal 21.0-32.0 [facility] Comment on above: Performed By: #### U RCX #### [facility] [address] [address] [address] Anthony Bonilla Creatinine [Mass/Vol] 1.21 mg/dL Critically high 0.55-1.02 [facility] Comment on above: Performed By: #### U RCX #### [facility] [address] [address] [address] Anthony Bonilla EGFR-AF IRAQI 51 mL/min/1.73m2 Critically low >=60 [facility] Comment on above: Performed By: #### U RCX #### [facility] [address] [address] [address] Anthony Bonilla EGFR-NON AF IRAQI 42 mL/min/1.73m2 Critically low >=60 [facility] Comment on above: Performed By: #### U RCX #### [facility] [address] [address] [address] Anthony Bonilla Globulin (S) [Mass/Vol] 3.1 g/dL Normal [facility] Comment on above: Performed By: #### U RCX #### [facility] [address] [address] [address] Anthony Bonilla Glucose [Mass/Vol] 107 mg/dL Critically high 74-106 [facility] Comment on above: Performed By: #### U RCX #### [facility] [address] [address] [address] Anthony Bonilla Potassium [Moles/Vol] 3.4 mmol/L Critically low 3.5-5.1 [facility] Comment on above: Performed By: #### U RCX #### [facility] [address] [address] [address] Anthony Bonilla Protein [Mass/Vol] 6.7 g/dL Normal 6.4-8.2 [facility] Comment on above: Performed By: #### U RCX #### [facility] [address] [address] [address] Anthony Bonilla Sodium [Moles/Vol] 143 mmol/L Normal 136-[address] [facility] Comment on above: Performed By: #### U RCX #### [facility] [address] [address] [address] Anthony Bonilla Urea nitrogen [Mass/Vol] 22.0 mg/dL Critically high 7.0-18.0 [facility] Comment on above: Performed By: #### U RCX #### [facility] [address] [address] [address] Anthony Bonilla Urea nitrogen/Creatinine [Mass ratio] 18.2 mg/mg Normal [facility] Comment on above: Performed By: #### U RCX #### [facility] [address] [address] [address] Anthony Bonilla Automated erythrocytes count in urine sediment (number/area)Ordered By: Gypsy Mcmahon on 02-16-2022 RBC Auto (Urine sed) [#/Area] 0-1 [HPF] 0-4 [facility] Automated leukocytes count i n urine sediment (number/area)Ordered By: Gypsy Mcmahon on 02-16-2022 WBC Auto (Urine sed) [#/Area] 20-49 [HPF] 0-4 [facility] Bilirubin Test strip Ql (U)O rdered By: Gypsy Mcmahon on 02-16-2022 Bilirubin Ql (U) Negative Negative [facility] Color Auto (U)Ordered By: Nicole Mcmahon on 02-16-2022 Color (U) Yellow Yellow [facility] Ketones Auto test strip (U) [Mass/Vol]Ordered By: Gypsy Mcmahon on 02-16-2022 Ketones (U) [Mass/Vol] Trace Negative [facility] - UrinalysisOrder ed By: Gypsy Mcmahon on 02-16-2022 Hyaline casts LM Ql (Urine sed) 9-19 [LPF] 0-8 [facility] Nitrite Test strip Ql (U)Ord ered By: Gypsy Mcmahon on 02-16-2022 Nitrite Ql (U) Positive Negative [facility] Protein Auto test strip (U) [Mass/Vol]Ordered By: Gypsy Mcmahon on 02-16-2022 Protein (U) [Mass/Vol] Negative Negative [facility] Specific gravity Auto test s trip (U) [Rel density]Ordered By: Gypsy Mcmahon on 02-16-2022 Specific gravity (U) [Rel density] 1.018 1.001-1.03 0 [facility] Squamous epithelial cells de tection in urine sediment by light microscopyOrdered By: Gypsy Mcmahon on 02-16-2022 Epithelial cells.squamous LM Ql (Urine sed) 5-9 [HPF] 0-2 [facility] Urine Cultureon 02-16-2022 Urine Culture >100,000 [employer] Other Urine Culture <16 Susceptible [employer] Other Urine Culture <8/4 Susceptible [employer] Other Urine Culture <4 Susceptible [employer] Other Urine Culture <2 Susceptible [employer] Other Urine Culture <1 Susceptible [employer] Other Urine Culture <0.25 Susceptible [employer] Other Urine Culture <0.5 Susceptible [employer] Other Urine Culture <32 Susceptible [employer] Other Urine Culture <0.5/9.5 Susceptible [employer] Other Urine bacteria detection by automated methodOrdered By: Gypsy Mcmahon on 02-16-2022 Bacteria Auto Ql (U) 2+ None Seen [facility] Urine clarity by refractomet ry automatedOrdered By: Gypsy Mcmahon on 02-16-2022 Clarity Refractometry automated (U) Cloudy Clear [facility] Urine culture routineOrdered By: Gypsy Mcmahon on 02-16-2022 Bacteria identified Cx Nom (U) Klebsiella variicola [facility] Urine glucose measurement by automated test strip (mass/volume)Ordered By: Gypsy Mcmahon on 02-16-2022 Glucose Auto test strip (U) [Mass/Vol] Normal mg/dL Normal [facility] Urine hemoglobin detection b y automated test stripOrdered By: Gypsy Mcmahon on 02-16-2022 Hemoglobin Auto test strip Ql (U) Negative Negative [facility] Urine leukocyte esterase det ection by automated test stripOrdered By: Gypsy Mcmahon on 02-16-2022 Leukocyte esterase Auto test strip Ql (U) 2+ Negative [facility] Urobilinogen Auto test strip (U) [Mass/Vol]Ordered By: Gypsy Mcmahon on 02-16-2022 Urobilinogen (U) [Mass/Vol] Normal mg/dL Normal [facility] pH Auto test strip (U)Ordere d By: Gypsy Mcmahon on 02-16-2022 pH (U) 5.5 [pH] 5.0-9.0 [facility] CBC AUTO DIFFon 01-15-2022 BASO # 0.0 103/ul Normal 0.0-0.1 [facility] Comment on above: Performed By: #### C BC #### [facility] [address] [address] [address] Anthony Bonilla Basophils/100 WBC (Bld) 0.5 % Normal 0.2-2.0 [facility] Comment on above: Performed By: #### C BC #### [facility] [address] [address] [address] Anthony Bonilla EO # 0.1 103/ul Normal 0.0-0.7 [facility] Comment on above: Performed By: #### C BC #### [facility] [address] [place] [address] Dr. Anthony Bonilla Eosinophils/100 WBC (Bld) 0.9 % Normal 0.9-7.0 [facility] Comment on above: Performed By: #### C BC #### [facility] [address] [place] [address] Dr. Anthony Bonilla Erythrocyte distribution width (RBC) [Ratio] 14.8 % Normal 11.0-15.0 [facility] Comment on above: Performed By: #### C BC #### [facility] [address] [place] [address] Dr. Anthony Bonilla Hematocrit (Bld) [Volume fraction] 30.3 % Critically low 36.0-48.0 [facility] Comment on above: Performed By: #### C BC #### [facility] [address] [place] [address] Dr. Anthony Bonilla Hemoglobin (Bld) [Mass/Vol] 9.8 g/dL Critically low 12.0-16.0 [facility] Comment on above: Performed By: #### C BC #### [facility] [address] [place] [address] Dr. Anthony Bonilla IG # 0.03 10e3/ul Normal 0.00-0.03 [facility] Comment on above: Performed By: #### C BC #### [facility] [address] [place] [address] Dr. Anthony Bonilla IG % 0.3 % Normal 0.0-0.5 [facility] Comment on above: Performed By: #### C BC #### [facility] [address] [place] [address] Dr. Anthony Bonilla LYMPH # 1.4 103/ul Normal 1.2-3.8 [facility] Comment on above: Performed By: #### C BC #### [facility] [address] [place] [address] Dr. Anthony Bonilla Lymphocytes/100 WBC (Bld) 15.7 % Critically low 20.5-60.0 [facility] Comment on above: Performed By: #### C BC #### [facility] [address] [place] [address] Dr. Anthony Bonilla MANUAL DIFF REQ NO Normal [facility] Comment on above: Performed By: #### C BC #### [facility] [address] [place] [address] Dr. Anthony Bonilla MCH (RBC) [Entitic mass] 30.0 pg Normal 26.7-34.0 [facility] Comment on above: Performed By: #### C BC #### [facility] [address] [place] [address] Dr. Anthony Bonilla MCHC (RBC) [Mass/Vol] 32.3 g/dL Normal 29.9-35.2 [facility] Comment on above: Performed By: #### C BC #### [facility] [address] [place] [address] Dr. Anthony Bonilla MCV (RBC) [Entitic vol] 92.7 fL Normal 81.0-99.0 [facility] Comment on above: Performed By: #### C BC #### [facility] [address] [place] [address] Dr. Anthony Bonilla MONO # 1.1 103/ul Critically high 0.3-0.8 [facility] Comment on above: Performed By: #### C BC #### [facility] [address] [place] [address] Dr. Anthony Bonilla Monocytes/100 WBC (Bld) 12.0 % Normal 1.7-12.0 [facility] Comment on above: Performed By: #### C BC #### [facility] [address] [place] [address] Dr. Anthony Bonilla NEUT # 6.2 103/ul Normal 1.4-6.5 [facility] Comment on above: Performed By: #### C BC #### [facility] [address] [place] [address] Dr. Anthony Bonilla Neutrophils/100 WBC (Bld) 70.6 % Normal 43.0-75.0 [facility] Comment on above: Performed By: #### C BC #### [facility] [address] [place] [address] Dr. Anthony Bonilla Platelet mean volume (Bld) [Entitic vol] 9.8 fL Normal 9.5-13.5 [facility] Comment on above: Performed By: #### C BC #### [facility] [address] [place] [address] Dr. Anthony Bonilla PLT 305 103/ul Normal 150-450 [facility] Comment on above: Performed By: #### C BC #### [facility] [address] [place] [address] Dr. Anthony Bonilla RBC 3.27 106/ul Critically low 4.20-5.40 [facility] Comment on above: Performed By: #### C BC #### [facility] [address] [place] [address] Dr. Anthony Bonilla WBC 8.7 103/ul Normal 4.0-11.0 [facility] Comment on above: Performed By: #### C BC #### [facility] [address] [place] [address] Dr. Anthony Bonilla PROF CHEM 8 (BAS METB)on Anion gap [Moles/Vol] 12.2 mmol/L Normal [facility] Comment on above: Performed By: #### U RCX #### [facility] [address] [place] [address] Dr. Anthony Bonilla Calcium [Mass/Vol] 9.1 mg/dL Normal 8.5-10.1 [facility] Comment on above: Performed By: #### U RCX #### [facility] [address] [address] [address] Anthony Bonilla Chloride [Moles/Vol] 104 mmol/L Normal 98-107 [facility] Comment on above: Performed By: #### U RCX #### [facility] [address] [address] [address] Anthony Bonilla CO2 [Moles/Vol] 24.4 mmol/L Normal 21.0-32.0 [facility] Comment on above: Performed By: #### U RCX #### [facility] [address] [address] [address] Anthony Bonilla Creatinine [Mass/Vol] 1.20 mg/dL Critically high 0.55-1.02 [facility] Comment on above: Performed By: #### U RCX #### [facility] [address] [address] [address] Anthony Bonilla EGFR-AF IRAQI 52 mL/min/1.73m2 Critically low >=60 [facility] Comment on above: Performed By: #### U RCX #### [facility] [address] [place] [address] Dr. Anthony Bonilla EGFR-NON AF IRAQI 43 mL/min/1.73m2 Critically low >=60 [facility] Comment on above: Performed By: #### U RCX #### [facility] [address] [address] [address] Anthony Bonilla Glucose [Mass/Vol] 81 mg/dL Normal 74-106 [facility] Comment on above: Performed By: #### U RCX #### [facility] [address] [address] [address] Anthony Bonilla Potassium [Moles/Vol] 3.6 mmol/L Normal 3.5-5.1 [facility] Comment on above: Performed By: #### U RCX #### [facility] [address] [place] [address] Dr. Anthony Bonilla Sodium [Moles/Vol] 137 mmol/L Normal 136-145 [facility] Comment on above: Performed By: #### U RCX #### [facility] [address] [place] [address] Dr. Anthony Bonilla Urea nitrogen [Mass/Vol] 21.0 mg/dL Critically high 7.0-18.0 [facility] Comment on above: Performed By: #### U RCX #### [facility] [address] [place] [address] Dr. Anthony Bonilla Urea nitrogen/Creatinine [Mass ratio] 17.5 mg/mg Normal [facility] Comment on above: Performed By: #### U RCX #### [facility] [address] [place] [address] Dr. Anthony Bonilla CULTURE URINEon 12-29-2021 CULTURE [...] <=0.12 S F Nitrofurantoin <=16 S F Trimethoprim/Sulfamethoxa zole <=20 S F ORGANISM 2 Enterobacter cloacae complex ANTIBIOTIC M.I.C RX STATUS Piperacillin/Tazobactam <=4 S F Cefazolin >=64 R F Ceftazidime <=1 S F Ceftriaxone <=1 S F Ertapenem <=0.5 S F Imipenem <=0.25 S F Amikacin <=2 S F Gentamicin <=1 S F Tobramycin <=1 S F Ciprofloxacin <=0.25 S F Levofloxacin <=0.12 S F Nitrofurantoin 32 S F Trimethoprim/Sulfamethoxa zole <=20 S F Normal [facility] Comment on above: Performed By: #### U RCX #### [facility] [address] [address] [address] Anthony Bonilla ER URINE PROFILEon 2 Bilirubin Ql (U) SMALL Abnormal NEGATIVE [facility] Comment on above: Performed By: #### C BC #### [facility] [address] [place] [address] Dr. Anthony Bonilla Clarity (U) SL CLOUDY Abnormal CLEAR [facility] Comment on above: Performed By: #### C BC #### [facility] [address] [place] [address] Dr. Anthony Bonilla Color (U) YELLOW Normal YELLOW [facility] Comment on above: Performed By: #### C BC #### [facility] [address] [place] [address] Dr. Anthony BANGURA A micrscopic examina tion will be performed if indicated. Normal [facility] Comment on above: Performed By: #### C BC #### [facility] [address] [place] [address] Dr. Anthony Bonilla Glucose Ql (U) Negative Normal NEGATIVE The [facility] Comment on above: Performed By: #### C BC #### [facility] [address] [place] [address] Dr. Anthony Bonilla Hemoglobin Ql (U) Negative Normal NEGATIVE [facility] Comment on above: Performed By: #### C BC #### [facility] [address] [place] [address] Dr. Anthony Bonilla Ketones Ql (U) TRACE Abnormal NEGATIVE The [facility] Comment on above: Performed By: #### C BC #### [facility] [address] [place] [address] Dr. Anthony Bonilla LEUKOCYTES MODERATE Abnormal NEGATIVE [facility] Comment on above: Performed By: #### C BC #### [facility] [address] [place] [address] Dr. Anthony Bonilla Nitrite Ql (U) Positive Abnormal NEGATIVE The [facility] Comment on above: Performed By: #### C BC #### [facility] [address] [place] [address] Dr. Anthony Bonilla pH (U) 7.5 [pH] Normal 5-9 [facility] Comment on above: Performed By: #### C BC #### [facility] [address] [place] [address] Dr. Anthony Bonilla Protein (U) [Mass/Vol] 30 mg/dL Abnormal NEGAT JAMAR/ TRACE The [facility] Comment on above: Performed By: #### C BC #### [facility] [address] [place] [address] Dr. Anthony Bonilla SPEC GRAVITY 1.020 Normal 1.005-<=1. 025 [facility] Comment on above: Performed By: #### C BC #### [facility] [address] [place] [address] Dr. Anthony Bonilla UR MICRO IND INDICATED Normal [facility] Comment on above: Performed By: #### C BC #### [facility] [address] [place] [address] Dr. Anthony Bonilla Urobilinogen Qn (U) 0.2 {Gen'U}/dL Normal 0.2 - 1. 0 [facility] Comment on above: Performed By: #### C BC #### [facility] [address] [place] [address] Dr. Anthony Bonilla URINE MICROSCOPIC ONLYon BACTERIA TRACE Abnormal NONE SEEN [facility] Comment on above: Performed By: #### C BC #### [facility] [address] [place] [address] Dr. Anthony Bonilla Bacteria identified Cx Nom (U) INDICATED Normal [facility] Comment on above: Performed By: #### C BC #### [facility] [address] [place] [address] Dr. Anthony Bonilla CAST NONE SEEN Normal NONE SEEN [facility] Comment on above: Performed By: #### C BC #### [facility] [address] [place] [address] Dr. Anthony Bonilla Crystals LM Nom (Urine sed) NONE SEEN Normal NONE SEEN [facility] Comment on above: Performed By: #### C BC #### [facility] [address] [place] [address] Dr. Anthony Bonilla Epithelial cells LM Ql (Urine sed) FEW Abnormal NONE SEEN /RARE [facility] Comment on above: Performed By: #### C BC #### [facility] [address] [place] [address] Dr. Anthony Bonilla MUCOUS NONE SEEN Normal NONE SEEN [facility] Comment on above: Performed By: #### C BC #### [facility] [address] [place] [address] Dr. Anthony Bonilla RBC 0-2 Normal 0-2 [facility] Comment on above: Performed By: #### C BC #### [facility] [address] [place] [address] Dr. Anthony Bonilla WBC 5-10 Abnormal NONE SEEN [facility] Comment on above: Performed By: #### C BC #### [facility] [address] [place] [address] Dr. Anthony Bonilla PRBC LEUKOREDUCEDon 11-20-19 PRBC LEUKOREDUCED Cross Match Result Compatible Unit Blood Type A Pos Unit Number [id number] Status Information Transfused Product ID Red Blood Cells Product Code [id number] Normal [facility] Comment on above: Performed By: #### P RBC #### [facility] [address] [place] [address] Dr. Anthony Bonilla CBC AUTO DIFFon 11-10-2021 BASO # 0.0 103/ul Normal 0.0-0.1 [facility] Comment on above: Performed By: #### C BC #### [facility] [address] [place] [address] Dr. Anthony Bonilla Basophils/100 WBC (Bld) 0.7 % Normal 0.2-2.0 [facility] Comment on above: Performed By: #### C BC #### [facility] [address] [place] [address] Dr. Anthony Bonilla EO # 0.2 103/ul Normal 0.0-0.7 [facility] Comment on above: Performed By: #### C BC #### [facility] [address] [place] [address] Dr. Anthony Bonilla Eosinophils/100 WBC (Bld) 2.7 % Normal 0.9-7.0 [facility] Comment on above: Performed By: #### C BC #### [facility] [address] [place] [address] Dr. Anthony Bonilla Erythrocyte distribution width (RBC) [Ratio] 16.3 % Critically high 11.0-15.0 [facility] Comment on above: Performed By: #### C BC #### [facility] [address] [place] [address] Dr. Anthony Bonilla Hematocrit (Bld) [Volume fraction] 29.0 % Critically low 36.0-48.0 [facility] Comment on above: Performed By: #### C BC #### [facility] [address] [place] [address] Dr. Anthony Bonilla Hemoglobin (Bld) [Mass/Vol] 9.4 g/dL Critically low 12.0-16.0 [facility] Comment on above: Performed By: #### C BC #### [facility] [address] [place] [address] Dr. Anthony Bonilla IG # 0.04 10e3/ul Critically high 0.00-0.03 [facility] Comment on above: Performed By: #### C BC #### [facility] [address] [place] [address] Dr. Anthony Bonilla IG % 0.7 % Critically high 0.0-0.5 [facility] Comment on above: Performed By: #### C BC #### [facility] [address] [place] [address] Dr. Anthony Bonilla LYMPH # 1.2 103/ul Normal 1.2-3.8 [facility] Comment on above: Performed By: #### C BC #### [facility] [address] [place] [address] Dr. Anthony Bonilla Lymphocytes/100 WBC (Bld) 21.5 % Normal 20.5-60.0 [facility] Comment on above: Performed By: #### C BC #### [facility] [address] [address] [address] Anthony Bonilla MANUAL DIFF REQ NO Normal [facility] Comment on above: Performed By: #### C BC #### [facility] [address] [place] [address] Dr. Anthony Bonilla MCH (RBC) [Entitic mass] 32.3 pg Normal 26.7-34.0 [facility] Comment on above: Performed By: #### C BC #### [facility] [address] [place] [address] Dr. Anthony Bonilla MCHC (RBC) [Mass/Vol] 32.4 g/dL Normal 29.9-35.2 [facility] Comment on above: Performed By: #### C BC #### [facility] [address] [place] [address] Dr. Anthony Bonilla MCV (RBC) [Entitic vol] 99.7 fL Critically high 81.0-99.0 [facility] Comment on above: Performed By: #### C BC #### [facility] [address] [place] [address] Dr. Anthony Bonilla MONO # 0.7 103/ul Normal 0.3-0.8 [facility] Comment on above: Performed By: #### C BC #### [facility] [address] [place] [address] Dr. Anthony Bonilla Monocytes/100 WBC (Bld) 12.6 % Critically high 1.7-12.0 [facility] Comment on above: Performed By: #### C BC #### [facility] [address] [place] [address] Dr. Anthony Bonilla NEUT # 3.4 103/ul Normal 1.4-6.5 [facility] Comment on above: Performed By: #### C BC #### [facility] [address] [place] [address] Dr. Anthony Bonilla Neutrophils/100 WBC (Bld) 61.8 % Normal 43.0-75.0 [facility] Comment on above: Performed By: #### C BC #### [facility] [address] [place] [address] Dr. Anthony Bonilla Platelet mean volume (Bld) [Entitic vol] 9.0 fL Critically low 9.5-13.5 [facility] Comment on above: Performed By: #### C BC #### [facility] [address] [place] [address] Dr. Anthony Bonilla PLT 429 103/ul Normal 150-450 [facility] Comment on above: Performed By: #### C BC #### [facility] [address] [place] [address] Dr. Anthony Bonilla RBC 2.91 106/ul Critically low 4.20-5.40 [facility] Comment on above: Performed By: #### C BC #### [facility] [address] [place] [address] Dr. Anthony Bonilla WBC 5.5 103/ul Normal 4.0-11.0 [facility] Comment on above: Performed By: #### C BC #### [facility] [address] [place] [address] Dr. Anthony Bonilla PROF CHEM 8 (BAS METB)on Anion gap [Moles/Vol] 11.0 mmol/L Normal [facility] Comment on above: Performed By: #### B MP #### [facility] [address] [place] [address] Dr. Anthony Bonilla Calcium [Mass/Vol] 9.2 mg/dL Normal 8.5-10.1 [facility] Comment on above: Performed By: #### B MP #### [facility] [address] [place] [address] Dr. Anthony Bonilla Chloride [Moles/Vol] 107 mmol/L Normal 98-107 [facility] Comment on above: Performed By: #### B MP #### [facility] [address] [place] [address] Dr. Anthony Bonilla CO2 [Moles/Vol] 27.4 mmol/L Normal 21.0-32.0 [facility] Comment on above: Performed By: #### B MP #### [facility] [address] [place] [address] Dr. Anthony Bonilla Creatinine [Mass/Vol] 1.12 mg/dL Critically high 0.55-1.02 [facility] Comment on above: Performed By: #### B MP #### [facility] [address] [address] [address] Anthony Bonilla EGFR-AF IRAQI 56 mL/min/1.73m2 Critically low >=60 [facility] Comment on above: Performed By: #### B MP #### [facility] [address] [address] [address] Anthony Bonilla EGFR-NON AF IRAQI 46 mL/min/1.73m2 Critically low >=60 [facility] Comment on above: Performed By: #### B MP #### [facility] [address] [address] [address] Anthony Bonilla Glucose [Mass/Vol] 89 mg/dL Normal 74-106 [facility] Comment on above: Performed By: #### B MP #### [facility] [address] [address] [address] Anthony Bonilla Potassium [Moles/Vol] 4.4 mmol/L Normal 3.5-5.1 [facility] Comment on above: Performed By: #### B MP #### [facility] [address] [address] [address] Anthony Bonilla Sodium [Moles/Vol] 141 mmol/L Normal 136-145 [facility] Comment on above: Performed By: #### B MP #### [facility] [address] [address] [address] Anthony Bonilla Urea nitrogen [Mass/Vol] 18.0 mg/dL Normal 7.0-18.0 [facility] Comment on above: Performed By: #### B MP #### [facility] [address] [address] [address] Anthony Bonilla Urea nitrogen/Creatinine [Mass ratio] 16.1 mg/mg Normal [facility] Comment on above: Performed By: #### B MP #### [facility] [address] [address] [address] Anthony Bonilla CBC AUTO DIFFon 11-04-2021 BASO # 0.0 103/ul Normal 0.0-0.1 [facility] Comment on above: Performed By: #### C BC #### [facility] [address] [place] [address] Dr. Anthony Bonilla Basophils/100 WBC (Bld) 0.2 % Normal 0.2-2.0 [facility] Comment on above: Performed By: #### C BC #### [facility] [address] [place] [address] Dr. Anthony Bonilla EO # 0.1 103/ul Normal 0.0-0.7 [facility] Comment on above: Performed By: #### C BC #### [facility] [address] [place] [address] Dr. Anthony Bonilla Eosinophils/100 WBC (Bld) 0.8 % Critically low 0.9-7.0 [facility] Comment on above: Performed By: #### C BC #### [facility] [address] [place] [address] Dr. Anthony Bonilla Erythrocyte distribution width (RBC) [Ratio] 16.7 % Critically high 11.0-15.0 [facility] Comment on above: Performed By: #### C BC #### [facility] [address] [place] [address] Dr. Anthony Bonilla Hematocrit (Bld) [Volume fraction] 25.6 % Critically low 36.0-48.0 [facility] Comment on above: Performed By: #### C BC #### [facility] [address] [place] [address] Dr. Anthony Bonilla Hemoglobin (Bld) [Mass/Vol] 8.5 g/dL Critically low 12.0-16.0 [facility] Comment on above: Performed By: #### C BC #### [facility] [address] [place] [address] Dr. Anthony Bonilla IG # 0.05 10e3/ul Critically high 0.00-0.03 [facility] Comment on above: Performed By: #### C BC #### [facility] [address] [place] [address] Dr. Anthony Bonilla IG % 0.5 % Normal 0.0-0.5 [facility] Comment on above: Performed By: #### C BC #### [facility] [address] [place] [address] Dr. Anthony Bonilla LYMPH # 0.6 103/ul Critically low 1.2-3.8 [facility] Comment on above: Performed By: #### C BC #### [facility] [address] [place] [address] Dr. Anthony Bonilla Lymphocytes/100 WBC (Bld) 6.2 % Critically low 20.5-60.0 [facility] Comment on above: Performed By: #### C BC #### [facility] [address] [place] [address] Dr. Anthony Bonilla MANUAL DIFF REQ NO Normal [facility] Comment on above: Performed By: #### C BC #### [facility] [address] [place] [address] Dr. Anthony Bonilla MCH (RBC) [Entitic mass] 31.6 pg Normal 26.7-34.0 [facility] Comment on above: Performed By: #### C BC #### [facility] [address] [place] [address] Dr. Anthony Bonilla MCHC (RBC) [Mass/Vol] 33.2 g/dL Normal 29.9-35.2 [facility] Comment on above: Performed By: #### C BC #### [facility] [address] [place] [address] Dr. Anthony Bonilla MCV (RBC) [Entitic vol] 95.2 fL Normal 81.0-99.0 [facility] Comment on above: Performed By: #### C BC #### [facility] [address] [place] [address] Dr. Anthony Bonilla MONO # 0.6 103/ul Normal 0.3-0.8 [facility] Comment on above: Performed By: #### C BC #### [facility] [address] [place] [address] Dr. Anthony Bonilla Monocytes/100 WBC (Bld) 6.1 % Normal 1.7-12.0 [facility] Comment on above: Performed By: #### C BC #### [facility] [address] [place] [address] Dr. Anthony Bonilla NEUT # 8.8 103/ul Critically high 1.4-6.5 [facility] Comment on above: Performed By: #### C BC #### [facility] [address] [place] [address] Dr. Anthony Bonilla Neutrophils/100 WBC (Bld) 86.2 % Critically high 43.0-75.0 [facility] Comment on above: Performed By: #### C BC #### [facility] [address] [place] [address] Dr. Anthony oBnilla Platelet mean volume (Bld) [Entitic vol] 9.8 fL Normal 9.5-13.5 [facility] Comment on above: Performed By: #### C BC #### [facility] [address] [place] [address] Dr. Anthony Bonilla PLT 156 103/ul Normal 150-450 [facility] Comment on above: Performed By: #### C BC #### [facility] [address] [place] [address] Dr. Anthony Bonilla RBC 2.69 106/ul Critically low 4.20-5.40 [facility] Comment on above: Performed By: #### C BC #### [facility] [address] [place] [address] Dr. Anthony Bonilla WBC 10.3 103/ul Normal 4.0-11.0 [facility] Comment on above: Performed By: #### C BC #### [facility] [address] [place] [address] Dr. Anthony Bonilla CULTURE URINEon 11-04-2021 CULTURE [...] <=0.12 S F Nitrofurantoin 32 S F Trimethoprim/Sulfamethoxa zole <=20 S F Normal [facility] Comment on above: Performed By: #### U RCX #### [facility] [address] [place] [address] Dr. Anthony Bonilla PROF CHEM 8 (BAS METB)on Anion gap [Moles/Vol] 12.9 mmol/L Normal [facility] Comment on above: Performed By: #### U RCX #### [facility] [address] [place] [address] Dr. Anthony Bonilla Calcium [Mass/Vol] 8.6 mg/dL Normal 8.5-10.1 [facility] Comment on above: Performed By: #### U RCX #### [facility] [address] [place] [address] Dr. Anthony Bonilla Chloride [Moles/Vol] 108 mmol/L Critically high 98-107 [facility] Comment on above: Performed By: #### U RCX #### [facility] [address] [place] [address] Dr. Anthony Bonilla CO2 [Moles/Vol] 23.1 mmol/L Normal 21.0-32.0 [facility] Comment on above: Performed By: #### U RCX #### [facility] [address] [place] [address] Dr. Anthony Bonilla Creatinine [Mass/Vol] 0.98 mg/dL Normal 0.55-1.02 [facility] Comment on above: Performed By: #### U RCX #### [facility] [address] [place] [address] Dr. Anthony Bonilla EGFR-AF IRAQI >60 Normal >=60 [facility] Comment on above: Performed By: #### U RCX #### [facility] [address] [place] [address] Dr. Anthony Bonilla EGFR-NON AF IRAQI 54 mL/min/1.73m2 Critically low >=60 [facility] Comment on above: Performed By: #### U RCX #### [facility] [address] [address] [address] Anthony Bonilla Glucose [Mass/Vol] 86 mg/dL Normal 74-106 [facility] Comment on above: Performed By: #### U RCX #### [facility] [address] [address] [address] Anthony Bonilla Potassium [Moles/Vol] 4.0 mmol/L Normal 3.5-5.1 [facility] Comment on above: Performed By: #### U RCX #### [facility] [address] [address] [address] Anthony Bonilla Sodium [Moles/Vol] 140 mmol/L Normal 136-[address] [facility] Comment on above: Performed By: #### U RCX #### [facility] [address] [address] [address] Anthony Bonilla Urea nitrogen [Mass/Vol] 31.0 mg/dL Critically high 7.0-18.0 [facility] Comment on above: Performed By: #### U RCX #### [facility] [address] [place] [address] Dr. Anthony Bonilla Urea nitrogen/Creatinine [Mass ratio] 31.6 mg/mg Normal [facility] Comment on above: Performed By: #### U RCX #### [facility] [address] [place] [address] Dr. Anthony Bonilla CBC AUTO DIFFon 11-03-2021 BASO # 0.0 103/ul Normal 0.0-0.1 [facility] Comment on above: Performed By: #### C BC #### [facility] [address] [place] [address] Dr. Anthony Bonilla Basophils/100 WBC (Bld) 0.3 % Normal 0.2-2.0 [facility] Comment on above: Performed By: #### C BC #### [facility] [address] [place] [address] Dr. Anthony Bonilla EO # 0.1 103/ul Normal 0.0-0.7 [facility] Comment on above: Performed By: #### C BC #### [facility] [address] [address] [address] Anthony Bonilla Eosinophils/100 WBC (Bld) 0.6 % Critically low 0.9-7.0 [facility] Comment on above: Performed By: #### C BC #### [facility] [address] [address] [address] Anthony Bonilla Erythrocyte distribution width (RBC) [Ratio] 14.0 % Normal 11.0-15.0 [facility] Comment on above: Performed By: #### C BC #### [facility] [address] [place] [address] Dr. Anthony Bonilla Hematocrit (Bld) [Volume fraction] 23.1 % Critically low 36.0-48.0 [facility] Comment on above: Result Comment: Flui ds given Performed By: #### C BC #### [facility] [address] [place] [address] Dr. Anthony Bonilla Hemoglobin (Bld) [Mass/Vol] 7.6 g/dL Critically low 12.0-16.0 [facility] Comment on above: Performed By: #### C BC #### [facility] [address] [place] [address] Dr. Anthony Bonilla IG # 0.07 10e3/ul Critically high 0.00-0.03 [facility] Comment on above: Performed By: #### C BC #### [facility] [address] [address] [address] Anthony Bonilla IG % 0.6 % Critically high 0.0-0.5 [facility] Comment on above: Performed By: #### C BC #### [facility] [address] [place] [address] Dr. Anthony Bonilla LYMPH # 0.7 103/ul Critically low 1.2-3.8 The [facility] Comment on above: Performed By: #### C BC #### [facility] [address] [address] [address] Anthony Bonilla Lymphocytes/100 WBC (Bld) 5.7 % Critically low 20.5-60.0 [facility] Comment on above: Performed By: #### C BC #### [facility] [address] [address] [address] Anthony Bonilla MANUAL DIFF REQ NO Normal [facility] Comment on above: Performed By: #### C BC #### [facility] [address] [address] [address] Anthony Bonilla MCH (RBC) [Entitic mass] 32.6 pg Normal 26.7-34.0 [facility] Comment on above: Performed By: #### C BC #### [facility] [address] [place] [address] Dr. Anthony Bonilla MCHC (RBC) [Mass/Vol] 32.9 g/dL Normal 29.9-35.2 [facility] Comment on above: Performed By: #### C BC #### [facility] [address] [place] [address] Dr. Anthony Bonilla MCV (RBC) [Entitic vol] 99.1 fL Critically high 81.0-99.0 [facility] Comment on above: Performed By: #### C BC #### [facility] [address] [place] [address] Dr. Anthony Bonilla MONO # 0.8 103/ul Normal 0.3-0.8 [facility] Comment on above: Performed By: #### C BC #### [facility] [address] [place] [address] Dr. Anthony Bonilla Monocytes/100 WBC (Bld) 6.8 % Normal 1.7-12.0 [facility] Comment on above: Performed By: #### C BC #### [facility] [address] [place] [address] Dr. nAthony Bonilla NEUT # 9.8 103/ul Critically high 1.4-6.5 [facility] Comment on above: Performed By: #### C BC #### [facility] [address] [place], [place] [id number] Dr. Anthony Bonilla Neutrophils/100 WBC (Bld) 86.0 % Critically high 43.0-75.0 [facility] Comment on above: Performed By: #### C BC #### [facility] [address] [place] [address] Dr. Anthony Bonilla Platelet mean volume (Bld) [Entitic vol] 9.5 fL Normal 9.5-13.5 [facility] Comment on above: Performed By: #### C BC #### [facility] [address] [place] [address] Dr. Anthony Bonilla PLT 160 103/ul Normal 150-450 [facility] Comment on above: Performed By: #### C BC #### [facility] [address] [place] [address] Dr. Anthony Bonilla RBC 2.33 106/ul Critically low 4.20-5.40 [facility] Comment on above: Performed By: #### C BC #### [facility] [address] [place] [address] Dr. Anthony Bonilla WBC 11.4 103/ul Critically high 4.0-11.0 [facility] Comment on above: Performed By: #### C BC #### [facility] [address] [place] [address] Dr. Anthony Bonilla HEMOGLOBIN AND HEMATOCRITon 11-03-2021 Hematocrit (Bld) [Volume fraction] 27.0 % Critically low 36.0-48.0 [facility] Comment on above: Performed By: #### U RCX #### [facility] [address] [place] [address] Dr. Anthony Bonilla Hemoglobin (Bld) [Mass/Vol] 9.1 g/dL Critically low 12.0-16.0 [facility] Comment on above: Performed By: #### U RCX #### [facility] [address] [place] [address] Dr. Anthony Bonilla OCC BLD IMMUNO SCREENon 10-10 OCCULT BLOOD Positive Abnormal NEGATIVE [facility] Comment on above: Performed By: #### C BC #### [facility] [address] [address] [address] Anthony Bonilla PROF CHEM 8 (BAS METB)on Anion gap [Moles/Vol] 10.7 mmol/L Normal [facility] Comment on above: Performed By: #### C BC #### [facility] [address] [place] [address] Dr. Anthony Bonilla Calcium [Mass/Vol] 8.6 mg/dL Normal 8.5-10.1 [facility] Comment on above: Performed By: #### C BC #### [facility] [address] [place] [address] Dr. Anthony Bonilla Chloride [Moles/Vol] 107 mmol/L Normal 98-107 [facility] Comment on above: Performed By: #### C BC #### [facility] [address] [place] [address] Dr. Anthony Bonilla CO2 [Moles/Vol] 24.4 mmol/L Normal 21.0-32.0 [facility] Comment on above: Performed By: #### C BC #### [facility] [address] [place] [address] Dr. Anthony Bonilla Creatinine [Mass/Vol] 0.98 mg/dL Normal 0.55-1.02 [facility] Comment on above: Performed By: #### C BC #### [facility] [address] [place] [address] Dr. Anthony Bonilla EGFR-AF IRAQI >60 Normal >=60 [facility] Comment on above: Performed By: #### C BC #### [facility] [address] [place] [address] Dr. Anthony Bonilla EGFR-NON AF IRAQI 54 mL/min/1.73m2 Critically low >=60 [facility] Comment on above: Performed By: #### C BC #### [facility] [address] [place] [address] Dr. Anthony Bonilla Glucose [Mass/Vol] 98 mg/dL Normal 74-[address] [facility] Comment on above: Performed By: #### C BC #### [facility] [address] [address] [address] Anthony Bonilla Potassium [Moles/Vol] 4.1 mmol/L Normal 3.5-5.1 [facility] Comment on above: Performed By: #### C BC #### [facility] [address] [address] [address] Anthony Bonilla Sodium [Moles/Vol] 138 mmol/L Normal 136-[address] [facility] Comment on above: Performed By: #### C BC #### [facility] [address] [place] [address] Dr. Anthony Bonilla Urea nitrogen [Mass/Vol] 43.0 mg/dL Critically high 7.0-18.0 [facility] Comment on above: Performed By: #### C BC #### [facility] [address] [place] [address] Dr. Anthony Bonilla Urea nitrogen/Creatinine [Mass ratio] 43.9 mg/mg Normal [facility] Comment on above: Performed By: #### C BC #### [facility] [address] [place] [address] Dr. Anthony Bonilla TYPE AND SCREENon 11-03-2021 TYPE AND SCREEN Negative Normal [facility] Comment on above: Performed By: #### C BC #### [facility] [address] [place] [address] Dr. Anthony Bonilla CBC AUTO DIFFon 11-02-2021 BASO # 0.0 103/ul Normal 0.0-0.1 [facility] Comment on above: Performed By: #### U RCX #### [facility] [address] [place] [address] Dr. Anthony Bonilla Basophils/100 WBC (Bld) 0.3 % Normal 0.2-2.0 [facility] Comment on above: Performed By: #### U RCX #### [facility] [address] [place] [address] Dr. Anthony Bonilla EO # 0.0 103/ul Normal 0.0-0.7 [facility] Comment on above: Performed By: #### U RCX #### [facility] [address] [address] [address] Anthony Bonilla Eosinophils/100 WBC (Bld) 0.1 % Critically low 0.9-7.0 [facility] Comment on above: Performed By: #### U RCX #### [facility] [address] [place] [address] Dr. Anthony Bonilla Erythrocyte distribution width (RBC) [Ratio] 13.9 % Normal 11.0-15.0 [facility] Comment on above: Performed By: #### U RCX #### [facility] [address] [place] [address] Dr. Anthony Bonilla Hematocrit (Bld) [Volume fraction] 31.8 % Critically low 36.0-48.0 [facility] Comment on above: Performed By: #### U RCX #### [facility] [address] [place] [address] Dr. Anthony Bonilla Hemoglobin (Bld) [Mass/Vol] 10.5 g/dL Critically low 12.0-16.0 [facility] Comment on above: Performed By: #### U RCX #### [facility] [address] [place] [address] Dr. Anthony Bonilla IG # 0.07 10e3/ul Critically high 0.00-0.03 [facility] Comment on above: Performed By: #### U RCX #### [facility] [address] [place] [address] Dr. Anthony Bonilla IG % 0.5 % Normal 0.0-0.5 [facility] Comment on above: Performed By: #### U RCX #### [facility] [address] [place] [address] Dr. Anthony Bonilla LYMPH # 0.9 103/ul Critically low 1.2-3.8 The [facility] Comment on above: Performed By: #### U RCX #### [facility] [address] [place] [address] Dr. Anthony Bonilla Lymphocytes/100 WBC (Bld) 6.1 % Critically low 20.5-60.0 [facility] Comment on above: Performed By: #### U RCX #### [facility] [address] [address] [address] Anthony Bonilla MANUAL DIFF REQ NO Normal [facility] Comment on above: Performed By: #### U RCX #### [facility] [address] [place] [address] Dr. Anthony Bonilla MCH (RBC) [Entitic mass] 32.7 pg Normal 26.7-34.0 [facility] Comment on above: Performed By: #### U RCX #### [facility] [address] [place] [address] Dr. Anthony Bonilla MCHC (RBC) [Mass/Vol] 33.0 g/dL Normal 29.9-35.2 [facility] Comment on above: Performed By: #### U RCX #### [facility] [address] [place] [address] Dr. Anthony Bonilla MCV (RBC) [Entitic vol] 99.1 fL Critically high 81.0-99.0 [facility] Comment on above: Performed By: #### U RCX #### [facility] [address] [place] [address] Dr. Anthony Bonilla MONO # 1.0 103/ul Critically high 0.3-0.8 [facility] Comment on above: Performed By: #### U RCX #### [facility] [address] [place] [address] Dr. Anthony Bonilla Monocytes/100 WBC (Bld) 6.8 % Normal 1.7-12.0 [facility] Comment on above: Performed By: #### U RCX #### [facility] [address] [place] [address] Dr. Anthony Bonilla NEUT # 12.1 103/ul Critically high 1.4-6.5 [facility] Comment on above: Performed By: #### U RCX #### [facility] [address] [place] [address] Dr. Anthony Bonilla Neutrophils/100 WBC (Bld) 86.2 % Critically high 43.0-75.0 [facility] Comment on above: Performed By: #### U RCX #### [facility] [address] [address] [address] Anthony Bonilla Platelet mean volume (Bld) [Entitic vol] 9.8 fL Normal 9.5-13.5 [facility] Comment on above: Performed By: #### U RCX #### [facility] [address] [address] [address] Anthony Bonilla PLT 175 103/ul Normal 150-450 [facility] Comment on above: Performed By: #### U RCX #### [facility] [address] [address] [address] Anthony Bonilla RBC 3.21 106/ul Critically low 4.20-5.40 [facility] Comment on above: Performed By: #### U RCX #### [facility] [address] [address] [address] Anthony Bonilla WBC 14.0 103/ul Critically high 4.0-11.0 [facility] Comment on above: Performed By: #### U RCX #### [facility] [address] HEAD WO CONon [...] HERNANDO HAMLIN Date: 2021-11-01 22:36 Normal [facility] PROF CHEM 8 (BAS METB)on Anion gap [Moles/Vol] 12.2 mmol/L Normal [facility] Comment on above: Performed By: #### C BC #### [facility] [address] [address] [address] Anthony Bonilla Calcium [Mass/Vol] 8.7 mg/dL Normal 8.5-10.1 [facility] Comment on above: Performed By: #### C BC #### [facility] [address] [address] [address] Anthony Bonilla Chloride [Moles/Vol] 103 mmol/L Normal 98-107 [facility] Comment on above: Performed By: #### C BC #### [facility] [address] [place] [address] Dr. Anthony Bonilla CO2 [Moles/Vol] 25.7 mmol/L Normal 21.0-32.0 [facility] Comment on above: Performed By: #### C BC #### [facility] [address] [address] [address] Anthony Bonilla Creatinine [Mass/Vol] 1.08 mg/dL Critically high 0.55-1.02 [facility] Comment on above: Performed By: #### C BC #### [facility] [address] [place] [address] Dr. Anthony Bonilla EGFR-AF IRAQI 58 mL/min/1.73m2 Critically low >=60 [facility] Comment on above: Performed By: #### C BC #### [facility] [address] [address] [address] Anthony Bonilla EGFR-NON AF IRAQI 48 mL/min/1.73m2 Critically low >=60 [facility] Comment on above: Performed By: #### C BC #### [facility] [address] [address] [address] Anthony Bonilla Glucose [Mass/Vol] 84 mg/dL Normal 74-[address] [facility] Comment on above: Performed By: #### C BC #### [facility] [address] [address] [address] Anthony Bonilla Potassium [Moles/Vol] 4.9 mmol/L Normal 3.5-5.1 [facility] Comment on above: Performed By: #### C BC #### [facility] [address] [address] [address] Anthony Boinlla Sodium [Moles/Vol] 136 mmol/L Normal 136-145 [facility] Comment on above: Performed By: #### C BC #### [facility] [address] [address] [address] Anthony Bonilla Urea nitrogen [Mass/Vol] 33.0 mg/dL Critically high 7.0-18.0 [facility] Comment on above: Performed By: #### C BC #### [facility] [address] [place] [address] Dr. Anthony Bonilla Urea nitrogen/Creatinine [Mass ratio] 30.6 mg/mg Normal [facility] Comment on above: Performed By: #### C BC #### [facility] [address] [place], [place] [id number] Dr. Anthony Bonilla XR CHEST 1 Von [...] GIANA HOLLY Date: 2021-11-01 22:05 Normal [facility] CARDIAC DARWIN ADMITon 022 CK [Catalytic activity/Vol] 92 U/L Normal 26-192 [facility] Comment on above: Performed By: #### C BC #### [facility] [id number] Anthony Bonilla CK.MB [Mass/Vol] 1.73 ng/mL Normal <=3.60 [facility] Comment on above: Performed By: #### C BC #### [facility] [id number] Anthony Bonilla HSTROP 20.0 pg/mL Normal 4.0-51.3 [facility] Comment on above: Result Comment: CUT- OFF POINTS HAVE BEEN ESTABLISHED BASED ON THE FOURTH UNIVERSAL DEFINITIONS OF MYOCARDIAL INFARCTION. THE UPPER REFERENCE LIMIT (URL) OF TROPONIN, DEFINED THE 99TH PERCENTILE OF cTnI DISTRIBUTION IN A REFERENCE POPULATION, HAS BEEN CONFIRMED THE DECISION THRESHOLD FOR [place] DIAGNOSIS. Performed By: #### C BC #### [facility] [address] [place] [address] Dr. Anthony Bonilla CANDIDA 58 ng/mL Normal 9-82 [facility] Comment on above: Performed By: #### C BC #### [facility] [address] [place] [address] Dr. Anthony Bonilla CBC AUTO DIFFon 11-01-2021 BASO # 0.0 103/ul Normal 0.0-0.1 [facility] Comment on above: Performed By: #### U RCX #### [facility] [address] [place] [address] Dr. Anthony Bonilla Basophils/100 WBC (Bld) 0.2 % Normal 0.2-2.0 [facility] Comment on above: Performed By: #### U RCX #### [facility] [address] [place] [address] Dr. Anthony Bonilla EO # 0.0 103/ul Normal 0.0-0.7 [facility] Comment on above: Performed By: #### U RCX #### [facility] [address] [place] [address] Dr. Anthony Bonilla Eosinophils/100 WBC (Bld) 0.0 % Critically low 0.9-7.0 [facility] Comment on above: Performed By: #### U RCX #### [facility] [address] [place] [address] Dr. Anthony Bonilla Erythrocyte distribution width (RBC) [Ratio] 14.1 % Normal 11.0-15.0 [facility] Comment on above: Performed By: #### U RCX #### [facility] [address] [place] [address] Dr. Anthony Bonilla Hematocrit (Bld) [Volume fraction] 36.0 % Normal 36.0-48.0 [facility] Comment on above: Performed By: #### U RCX #### [facility] [address] [address] [address] Anthony Bonilla Hemoglobin (Bld) [Mass/Vol] 12.1 g/dL Normal 12.0-16.0 [facility] Comment on above: Performed By: #### U RCX #### [facility] [address] [address] [address] Anthony Bonilla IG # 0.11 10e3/ul Critically high 0.00-0.03 [facility] Comment on above: Performed By: #### U RCX #### [facility] [address] [address] [address] Anthony Bonilla IG % 0.5 % Normal 0.0-0.5 [facility] Comment on above: Performed By: #### U RCX #### [facility] [address] [address] [address] Anthony Bonilla LYMPH # 0.7 103/ul Critically low 1.2-3.8 [facility] Comment on above: Performed By: #### U RCX #### [facility] [address] [address] [address] Anthony Bonilla Lymphocytes/100 WBC (Bld) 3.2 % Critically low 20.5-60.0 [facility] Comment on above: Performed By: #### U RCX #### [facility] [address] [address] [address] Anthony Bonilla MANUAL DIFF REQ NO Normal [facility] Comment on above: Performed By: #### U RCX #### [facility] [address] [address] [address] Anthony Bonilla MCH (RBC) [Entitic mass] 33.0 pg Normal 26.7-34.0 [facility] Comment on above: Performed By: #### U RCX #### [facility] [address] [place] [address] Dr. Anthony Bonilla MCHC (RBC) [Mass/Vol] 33.6 g/dL Normal 29.9-35.2 [facility] Comment on above: Performed By: #### U RCX #### [facility] [address] [address] [address] Anthony Bonilla MCV (RBC) [Entitic vol] 98.1 fL Normal 81.0-99.0 [facility] Comment on above: Performed By: #### U RCX #### [facility] [address] [address] [address] Anthony Bonilla MONO # 1.1 103/ul Critically high 0.3-0.8 [facility] Comment on above: Performed By: #### U RCX #### [facility] [address] [place] [address] Dr. Anthony Bonilla Monocytes/100 WBC (Bld) 4.8 % Normal 1.7-12.0 [facility] Comment on above: Performed By: #### U RCX #### [facility] [address] [place] [address] Dr. Anthony Bonilla NEUT # 20.3 103/ul Critically high 1.4-6.5 [facility] Comment on above: Performed By: #### U RCX #### [facility] [address] [place] [address] Dr. Anthony Bonilla Neutrophils/100 WBC (Bld) 91.3 % Critically high 43.0-75.0 [facility] Comment on above: Performed By: #### U RCX #### [facility] [address] [place] [address] Dr. Anthony Bonilla Platelet mean volume (Bld) [Entitic vol] 10.8 fL Normal 9.5-13.5 [facility] Comment on above: Performed By: #### U RCX #### [facility] [address] [place] [address] Dr. Anthony Bonilla PLT 179 103/ul Normal 150-450 [facility] Comment on above: Performed By: #### U RCX #### [facility] [address] [place] [address] Dr. Anthony Bonilla RBC 3.67 106/ul Critically low 4.20-5.40 [facility] Comment on above: Performed By: #### U RCX #### [facility] [address] [address] [address] Anthony Bonilla WBC 22.2 103/ul Critically high 4.0-11.0 [facility] Comment on above: Performed By: #### U RCX #### [facility] [address] [place] [address] Dr. Anthony Bonilla CULTURE BLOODon 11-01-2021 Microscopic examination of blood, culture Culture Observations: NO GROWTH AT 5 DAYS. Normal [facility] Comment on above: Performed By: #### B LDCX2 #### [facility] [address] [place] [address] Dr. Anthony Bonilla Performed By: #### C BC #### [facility] [address] [place] [address] Dr. Anthony Bonilla [facility]10 SARS-CoV-2 (COVID-19) RNA OH+probe Ql (Unsp spec) Detected Critically abnormal NOT DETECTED [facility] Comment on above: Result Comment: This test is not yet approved or cleared by the [place] FDA. When there are no FDA-approved or cleared tests available, and other criteria are met, FDA can make tests available under an emergency access mechanism called an Emergency Use Authorization (EUA). The EUA for this test is supported by the Hospital Pharmacist of Health and Human Service's declaration that [...] used). Performed By: #### C BC #### [facility] [address] [place] [address] Dr. Anthony Bonilla ER URINE PROFILEon 2 Bilirubin Ql (U) Negative Normal NEGATIVE [facility] Comment on above: Performed By: #### U RCX #### [facility] [address] [place] [address] Dr. Anthony Bonilla Clarity (U) CLEAR Normal CLEAR [facility] Comment on above: Performed By: #### U RCX #### [facility] [address] [address] [address] Anthony Bonilla Color (U) LT. YELLOW Normal YELLOW [facility] Comment on above: Performed By: #### U RCX #### [facility] [address] [address] [address] Anthony Bonilla ERUAHD A micrscopic examina tion will be performed if indicated. Normal [facility] Comment on above: Performed By: #### U RCX #### [facility] [address] [place] [address] Dr. Anthony Bonilla Glucose Ql (U) Negative Normal NEGATIVE [facility] Comment on above: Performed By: #### U RCX #### [facility] [address] [place] [address] Dr. Anthony Bonilla Hemoglobin Ql (U) TRACE-INTACT Abnormal NEGATIVE [facility] Comment on above: Performed By: #### U RCX #### [facility] [address] [place] [address] Dr. Anthony Bonilla Ketones Ql (U) Negative Normal NEGATIVE [facility] Comment on above: Performed By: #### U RCX #### [facility] [address] [place] [address] Dr. Anthony Bonilla LEUKOCYTES Negative Normal NEGATIVE [facility] Comment on above: Performed By: #### U RCX #### [facility] [address] [address] [address] Anthony Bonilla Nitrite Ql (U) Negative Normal NEGATIVE [facility] Comment on above: Performed By: #### U RCX #### [facility] [address] [place] [address] Dr. Anthony Bonilla pH (U) 6.0 [pH] Normal 5-9 [facility] Comment on above: Performed By: #### U RCX #### [facility] [address] [place] [address] Dr. Anthony Bonilla SPEC GRAVITY 1.020 Normal 1.005-<=1. 025 [facility] Comment on above: Performed By: #### U RCX #### [facility] [address] [place] [address] Dr. Anthony Bonilla UA PROTEIN Negative Normal NEGATIVE/ TRACE [facility] Comment on above: Performed By: #### U RCX #### [facility] [address] [place] [address] Dr. Anthony Bonilla UR MICRO IND INDICATED Normal [facility] Comment on above: Performed By: #### U RCX #### [facility] [address] [place] [address] Dr. Anthony Bonilla Urobilinogen Qn (U) 1.0 {Gen'U}/dL Normal 0.2 - 1. 0 [facility] Comment on above: Performed By: #### U RCX #### [facility] [address] [place] [address] Dr. Anthony Bonilla LACTATE/LACTIC ACIDon 2021 Lactate [Moles/Vol] 1.6 mmol/L Normal 0.4-1.9 [facility] Comment on above: Performed By: #### C BC #### [facility] [address] [place] [address] Dr. Anthony Bonilla PROF 14(COMP METB)on 022 Albumin [Mass/Vol] 3.2 g/dL Critically low 3.4-5.0 Th [facility] Comment on above: Performed By: #### C BC #### [facility] [address] [place] [address] Dr. Anthony Bonilla Albumin/Globulin [Mass ratio] 0.9 {ratio} Normal [facility] Comment on above: Performed By: #### C BC #### [facility] [address] [place] [address] Dr. Anthony Bonilla ALP [Catalytic activity/Vol] 26 U/L Critically low 46-116 [facility] Comment on above: Performed By: #### C BC #### [facility] [address] [place] [address] Dr. Anthony Bonilla ALT [Catalytic activity/Vol] 32 U/L Normal 14-59 [facility] Comment on above: Performed By: #### C BC #### [facility] [address] [place] [address] Dr. Anthony Bonilla Anion gap [Moles/Vol] 11.5 mmol/L Normal Th [facility] Comment on above: Performed By: #### C BC #### [facility] [address] [address] [address] Anthony Bonilla AST [Catalytic activity/Vol] 16 U/L Normal 15-37 [facility] Comment on above: Performed By: #### C BC #### [facility] [address] [address] [address] Anthony Bonilla Bilirubin [Mass/Vol] 1.2 mg/dL Critically high 0.2-1.0 [facility] Comment on above: Performed By: #### C BC #### [facility] [address] [place] [address] Dr. Anthony Bonilla Calcium [Mass/Vol] 9.0 mg/dL Normal 8.5-10.1 [facility] Comment on above: Performed By: #### C BC #### [facility] [address] [place] [address] Dr. Anthony Bonilla Chloride [Moles/Vol] 102 mmol/L Normal 98-107 [facility] Comment on above: Performed By: #### C BC #### [facility] [address] [address] [address] Anthony Bonilla CO2 [Moles/Vol] 25.2 mmol/L Normal 21.0-32.0 [facility] Comment on above: Performed By: #### C BC #### [facility] [address] [address] [address] Anthony Bonilla Creatinine [Mass/Vol] 1.25 mg/dL Critically high 0.55-1.02 [facility] Comment on above: Performed By: #### C BC #### [facility] [address] [address] [address] Anthony Bonilla EGFR-AF IRAQI 49 mL/min/1.73m2 Critically low >=60 [facility] Comment on above: Performed By: #### C BC #### [facility] [address] [address] [address] Anthony Bonilla EGFR-NON AF IRAQI 41 mL/min/1.73m2 Critically low >=60 [facility] Comment on above: Performed By: #### C BC #### [facility] [address] [address] [address] Anthony Bonilla Globulin (S) [Mass/Vol] 3.4 g/dL Normal [facility] Comment on above: Performed By: #### C BC #### [facility] [address] [address] [address] Anthony Bonilla Glucose [Mass/Vol] 102 mg/dL Normal 74-106 [facility] Comment on above: Performed By: #### C BC #### [facility] [address] [address] [address] Anthony Bonilla Potassium [Moles/Vol] 4.7 mmol/L Normal 3.5-5.1 [facility] Comment on above: Performed By: #### C BC #### [facility] [address] [address] [address] Anthony Bonilla Protein [Mass/Vol] 6.6 g/dL Normal 6.4-8.2 [facility] Comment on above: Performed By: #### C BC #### [facility] [address] [address] [address] Anthony Bonilla Sodium [Moles/Vol] 134 mmol/L Critically low 136-145 [facility] Comment on above: Performed By: #### C BC #### [facility] [address] [address] [address] Anthony Bonilla Urea nitrogen [Mass/Vol] 33.0 mg/dL Critically high 7.0-18.0 [facility] Comment on above: Performed By: #### C BC #### [facility] [address] [address] [address] Anthony Bonilla Urea nitrogen/Creatinine [Mass ratio] 26.4 mg/mg Normal [facility] Comment on above: Performed By: #### C BC #### [facility] [address] [place] [address] Dr. Anthony Bonilla PROTIMEon 11-01-2021 INR Coag (PPP) [Relative time] 0.97 {INR} Normal [facility] Comment on above: Performed By: #### U RCX #### [facility] [address] [place] [address] Dr. Anthony Bonilla INR GUIDELINES SEE BELOW Normal The [facility] Comment on above: Result Comment: MEGAN RED INR: 2.0 - 3.0 CONDITIONS NOT LISTED BELOW 2.5 - 3.5 FOR PROSTHETIC HEART VALVE REPLACEMENT 2.5 - 3.5 RECURRENT THROMBOSIS Performed By: #### U RCX #### [facility] [address] [place] [address] Dr. Anthony Bonilla PT Coag (PPP) [Time] 10.5 s Normal 9.0-11.6 [facility] Comment on above: Performed By: #### U RCX #### [facility] [address] [place] [address] Dr. Anthony Bonilla PTTon 11-01-2021 aPTT Coag (Bld) [Time] 27.8 s Normal 22.3-36.2 Th [facility] Comment on above: Performed By: #### U RCX #### [facility] [address] [place] [address] Dr. Anthony Bonilla TSHon 11-01-2021 TSH 1.011 uIU/mL Normal 0.358-3.74 0 [facility] Comment on above: Performed By: #### C BC #### [facility] [address] [place] [address] Dr. Anthony Bonilla URINE MICROSCOPIC ONLYon BACTERIA LARGE Abnormal NONE SEEN [facility] Comment on above: Performed By: #### U RCX #### [facility] [address] [place] [address] Dr. Anthony Bonilla Bacteria identified Cx Nom (U) INDICATED Normal [facility] Comment on above: Performed By: #### U RCX #### [facility] [address] [place] [address] Dr. Anthony Bonilla CAST NONE SEEN Normal NONE SEEN [facility] Comment on above: Performed By: #### U RCX #### [facility] [address] [place] [address] Dr. Anthony Bonilla Crystals LM Nom (Urine sed) NONE SEEN Normal NONE SEEN [facility] Comment on above: Performed By: #### U RCX #### [facility] [address] [place] [address] Dr. Anthony Bonilla Epithelial cells LM Ql (Urine sed) FEW Abnormal NONE SEEN /RARE [facility] Comment on above: Performed By: #### U RCX #### [facility] [address] [place] [address] Dr. Anthony Bonilla MUCOUS NONE SEEN Normal NONE SEEN [facility] Comment on above: Performed By: #### U RCX #### [facility] [address] [place] [address] Dr. Anthony Bonilla RBC 2-5 Abnormal 0-2 [facility] Comment on above: Performed By: #### U RCX #### [facility] [address] [place] [address] Dr. Anthony Bonilla WBC 0-2 Abnormal NONE SEEN [facility] Comment on above: Performed By: #### U RCX #### [facility] [address] [place] [address] Dr. Anthony Bonilla [facility]19 [facility]on SARS-CoV-2 (COVID-19) RNA OH+probe Ql (Unsp spec) Detected Critically abnormal NOT DETECTED [facility] Comment on above: Result Comment: This test is not yet approved or cleared by the [place] FDA. When there are no FDA-approved or cleared tests available, and other criteria are met, FDA can make tests available under an emergency access mechanism called an Emergency Use Authorization (EUA). The EUA for this test is supported by the Hospital Pharmacist of Health and Human Service's declaration that [...] used). Performed By: #### C BC #### [facility] [address] [place] [address] Anthony Bonilla Covid-19 PCR ([facility])on SARS-CoV-2 (COVID-19) RNA OH+probe Ql (Unsp spec) Not detected Normal NOT DETECTED [facility] Comment on above: Result Comment: This test is not yet approved or cleared by the [place] FDA. When there are no FDA-approved or cleared tests available, and other criteria are met, FDA can make tests available under an emergency access mechanism called an Emergency Use Authorization (EUA). The EUA for this test is supported by the Hospital Pharmacist of Health and Human Service's (HHS's) declaration [...] SARS-CoV-2. Performed By: #### U RCX #### [facility] [address] [place] [address] 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 Any time this information is not complete, it is the mobile application tester?s responsibility to query the physician. Based on [...] timely attention to this matter. Ambar Manley Lumber Stacker Driver Ext [phone] [Electronically Signed on: 10/18/2019 21:40 EDT] Mi Licea DO [Verified on: 10/18/2019 21:40 EDT] Mi Licea DO [Transcribed on: 10/02/2019 11:06 EDT] [facility] Consent Formson 09-29-2019 Consent Forms [id number]#1.00OTGTI [facility] Medication Managementon 09-09 Medication Management [id number]#1.00OTGTI [facility] Outside Recordson 09-29-2019 Outside Records [id number]#[facility] [id number]#1.[facility] Provider Orderson 09-29-2019 Provider Orders [id number]#1.[facility] Telemetry Stripson 0 Telemetry Strips [id number]#1.00[facility] .Auto Diff 1on 2019 Auto Waldo % 11 % Normal 02-19 [facility] Comment on above: Performed By: #### 1 [id number], [id number], [id number] #### [facility] (DEFAULT) [address] [place] [address] 33682 Baso Abs# 0.0 x10 Normal 0.0-0.2 [facility] Comment on above: Performed By: #### 1 [id number], [id number], [id number] #### [facility] (DEFAULT) [address] [place] [address] 61416 Basophils/100 WBC (Bld) 0.1 % Low 0.2-2.0 [facility] Comment on above: Performed By: #### 1 [id number], [id number], 0736152 #### [facility] (DEFAULT) [address] [place] [address] 76724 Eos Abs# 0.2 x10 Normal 0.0-0.4 [facility] Comment on above: Performed By: #### 1 [id number], [id number], [id number] #### [facility] (DEFAULT) [address] [place] [address] 47979 Eosinophils/100 WBC (Bld) 2.2 % Normal 0.9-4.0 [facility] Comment on above: Performed By: #### 1 [id number], 57527306, 9244169 #### [facility] (DEFAULT) [address] [place] [address] 66320 Lymphocytes (Bld) [#/Vol] 0.6 x10 Low 1.3-2.9 [facility] Comment on above: Performed By: #### 1 [id number], [id number], 7996099 #### [facility] (DEFAULT) [address] [place] [address] 84364 Lymphocytes/100 WBC (Bld) 6 % Low 14-48 [facility] Comment on above: Performed By: #### 1 [id number], [id number], 8221299 #### [facility] (DEFAULT) [address] [place] [address] 57571 Waldo Abs# 1.0 x10 High 0.0-0.8 [facility] Comment on above: Performed By: #### 1 [id number], 84413628, 5177057 #### [facility] (DEFAULT) [address] [place] [address] 07451 Neut Abs# 7.2 x10 Normal 1.5-9.2 [facility] Comment on above: Performed By: #### 1 [id number], 93924927, 6536104 #### [facility] (DEFAULT) [address] [place] [address] 77725 Neutrophils/100 WBC (Bld) 80 % Normal 44-88 [facility] Comment on above: Performed By: #### 1 [id number], 50538154, 7736237 #### [facility] (DEFAULT) [address] [place] [address] 14907 CBC w/ Auto Diffon 0 Erythrocyte distribution width (RBC) [Ratio] 14.4 % Normal 11.5-15.0 [facility] Comment on above: Performed By: #### 1 [id number], [id number], 0572721 #### [facility] (DEFAULT) [address] [place] [address] Hematocrit (Bld) [Volume fraction] 36.2 % Normal 33.7-40.4 [facility] Comment on above: Performed By: #### 1 [id number], [id number], 3612321 #### [facility] (DEFAULT) [address] [place] [address] Hemoglobin (Bld) [Mass/Vol] 11.9 g/dL Normal 11.3-15.9 [facility] Comment on above: Performed By: #### 1 [id number], [id number], 7739670 #### [facility] (DEFAULT) [address] [place] [address] Man Diff? Auto Normal [facility] Comment on above: Performed By: #### 1 [id number], 91784625, 1698527 #### [facility] (DEFAULT) [address] [place] [address] 74736 MCH (RBC) [Entitic mass] 33 pg Normal 24-34 [facility] Comment on above: Performed By: #### 1 [id number], 24988353, 4437341 #### [facility] (DEFAULT) [address] [place] [address] 27520 MCHC (RBC) [Mass/Vol] 33 g/dL Normal 26-37 [facility] Comment on above: Performed By: #### 1 [id number], [id number], 0524577 #### [facility] (DEFAULT) [address] [place] [address] 12588 MCV (RBC) [Entitic vol] 100 fL Normal 81-100 [facility] Comment on above: Performed By: #### 1 [id number], 78962388, 2580589 #### [facility] (DEFAULT) [address] [place] [address] 65971 Platelet mean volume (Bld) [Entitic vol] 9.6 fL Normal 6.3-10.2 [facility] Comment on above: Performed By: #### 1 [id number], 67432375, 1070835 #### [facility] (DEFAULT) [address] [place] [address] 58107 Platelets (Bld) [#/Vol] 286 x10 Normal 138-427 [facility] Comment on above: Performed By: #### 1 [id number], 81756298, 7524452 #### [facility] (DEFAULT) [address] [place] [address] 56529 RBC (Bld) [#/Vol] 3.61 x10 Low 3.70-5.30 [facility] Comment on above: Performed By: #### 1 [id number], 03942290, 4368161 #### [facility] (DEFAULT) [address] [place] [address] 91774 WBC (Bld) [#/Vol] 9.0 x10 [facility] Comment on above: Performed By: #### 1 [id number], 48125545, 7050354 #### [facility] (DEFAULT) [address] [place] [address] 01540 Education Noteon 2019 Education Note Education Materials [...] done to rule of a DVT. Normal [facility] Extra Greenon 2019 Tube Collected Yes [facility] Comment on above: Performed By: #### 1 [id number], 81853047, 3464971 #### [facility] (DEFAULT) [address] [place] [address] 05609 Inpatient Patient Summaryon 2019 Inpatient Patient Summary [address] [id number] Patient Discharge Instructions Name: DELICIA HSU : 1935 Patient Address: [address] [place], [place] [id number] Primary Care Provider: Name: Gypsy Mcmahon MD After you are discharged if you find you have any questions, please, call [phone] ext [phone] to speak to a nurse. [...] alcohol and/or drug addiction problems; contact the [facility] 31/08 Crisis Hotline -Text 4HFDU to 325526. If you received any narcotics, sedation, or [...] business decisions or sign any legal documents [facility] would like to thank you for allowing us to assist you with your healthcare needs. The following includes patient education materials and information regarding your injury/illness. DELICIA HSU has been given the following list of follow-up instructions, prescriptions, and patient education materials: Follow-up Instructions With: Address: When: Mi Licea [address] [place] [address] [address] [place] [address] Business (2) 10/03/2019 8:30 AM With: Address: When: Gypsy Mcmahon [address] [place] [address] [place] [address] Business (1) Medications During the course of your visit, your medication list was updated with the most current information. The details of those changes are reflected below: New Medications Other Medications cefuroxime (cefuroxime 250 mg oral tablet) 1 tab(s) Oral 2 times a day for 7 Days. [facility] That Were Updated - Follow Below [...] for Disease Control and Prevention October 2013 [facility] Progress Note - Nurseon 09-09 [facility] ([facility]) [[facility]] Pt. transferred to bed times one assist. [...] on: 2019 11:52 EDT] Pan Regalado RN [facility] Progress Note - Nurse Pt. reports interm ittent left upper inner thigh grabbing pain. Pt. moans during these episodes. Tramadol given. Pt. repostioned for comfort. No change in the muscle spasms. Dr. Chacko informed in person. No orders received. [Electronically Signed on: 2019 09:32 EDT] Pan Regalado RN [Verified on: 2019 09:32 EDT] Pan Regalado RN [facility] Progress Note-Physicianon Progress Note-Physician DATE [...] PROGNOSIS: Good. Devorah Redd DO JOB #: [id number] bk [Electronically Signed on: 2019 13:04 EDT] DEVORAH REDD DO [Verified on: 2019 13:04 EDT] DEVORAH REDD DO [Transcribed on: 2019 11:05 EDT] [facility] Normal [facility] .Auto Diff 1on 09-27-2019 Auto Waldo % 9 % Normal 12 [facility] Comment on above: Performed By: #### 1 [id number], [id number], [id number] #### [facility] (DEFAULT) [address] [place] [address] Baso Abs# 0.0 x10 Normal 0.0-0.2 [facility] Comment on above: Performed By: #### 1 [id number], 19132630, 3267743 #### [facility] (DEFAULT) [address] [place] [address] 90746 Basophils/100 WBC (Bld) 0.1 % Low 0.2-2.0 [facility] Comment on above: Performed By: #### 1 [id number], 95024412, 6228525 #### [facility] (DEFAULT) [address] [place] [address] 41254 Eos Abs# 0.2 x10 Normal 0.0-0.4 [facility] Comment on above: Performed By: #### 1 [id number], 72056155, 1764288 #### [facility] (DEFAULT) [address] [place] [address] 93843 Eosinophils/100 WBC (Bld) 1.6 % Normal 0.9-4.0 [facility] Comment on above: Performed By: #### 1 [id number], 12906852, 0083376 #### [facility] (DEFAULT) [address] [place] [address] 95737 Lymphocytes (Bld) [#/Vol] 0.5 x10 Low 1.3-2.9 [facility] Comment on above: Performed By: #### 1 [id number], 61438957, 5587769 #### [facility] (DEFAULT) [address] [place] [address] 14391 Lymphocytes/100 WBC (Bld) 4 % Low 14-48 [facility] Comment on above: Performed By: #### 1 [id number], 99126361, 4421758 #### [facility] (DEFAULT) [address] [place] [address] 46569 Waldo Abs# 1.2 x10 High 0.0-0.8 [facility] Comment on above: Performed By: #### 1 [id number], 68655412, 8235119 #### [facility] (DEFAULT) [address] [place] [address] 49481 Neut Abs# 11.5 x10 High 1.5-9.2 [facility] Comment on above: Performed By: #### 1 [id number], 84384488, 2616966 #### [facility] (DEFAULT) [address] [place] [address] Neutrophils/100 WBC (Bld) 86 % Normal 44-88 [facility] Comment on above: Performed By: #### 1 [id number], 36268584, 8812480 #### [facility] (DEFAULT) [address] [place] [address] C Urineon 09-27-2019 C Urine Urine Culture [...] <=4 Verified Tri/Sulf S <=2/38 Verified Normal [facility] Comment on above: Performed By: #### 7 [id number], [id number], [id number] #### [facility] (DEFAULT) [address] [place] [address] 74233 CBC w/ Auto Diffon 0 Erythrocyte distribution width (RBC) [Ratio] 14.5 % Normal 11.5-15.0 [facility] Comment on above: Performed By: #### 1 [id number], 14345284, 0284380 #### [facility] (DEFAULT) [address] [place] [address] Hematocrit (Bld) [Volume fraction] 39.2 % Normal 33.7-40.4 [facility] Comment on above: Performed By: #### 1 [id number], 39882486, 9247795 #### [facility] (DEFAULT) [address] [place] [address] Hemoglobin (Bld) [Mass/Vol] 12.8 g/dL Normal 11.3-15.9 [facility] Comment on above: Performed By: #### 1 [id number], 72134559, 2191513 #### [facility] (DEFAULT) [address] [place] [address] Man Diff? Auto Normal [facility] Comment on above: Performed By: #### 1 [id number], 95996199, 3431215 #### [facility] (DEFAULT) [address] [place] [address] MCH (RBC) [Entitic mass] 33 pg Normal 24-34 [facility] Comment on above: Performed By: #### 1 [id number], 29767837, 1910838 #### [facility] (DEFAULT) [address] [place] [address] MCHC (RBC) [Mass/Vol] 33 g/dL Normal 26-37 [facility] Comment on above: Performed By: #### 1 [id number], 90249528, 3689710 #### [facility] (DEFAULT) [address] [place] [address] MCV (RBC) [Entitic vol] 101 fL High 81-100 [facility] Comment on above: Performed By: #### 1 [id number], 79795456, 3170322 #### [facility] (DEFAULT) [address] [place] [address] Platelet mean volume (Bld) [Entitic vol] 9.8 fL Normal 6.3-10.2 [facility] Comment on above: Performed By: #### 1 [id number], 06533701, 8816199 #### [facility] (DEFAULT) [address] [place] [address] Platelets (Bld) [#/Vol] 266 x10 Normal 138-427 [facility] Comment on above: Performed By: #### 1 [id number], 51987231, 4122291 #### [facility] (DEFAULT) [address] [place] [address] 53086 RBC (Bld) [#/Vol] 3.89 x10 Normal 3.70-5.30 [facility] Comment on above: Performed By: #### 1 [id number], 91225634, 5569930 #### [facility] (DEFAULT) [address] [place] [address] 74080 WBC (Bld) [#/Vol] 13.4 x10 [facility] Comment on above: Result Comment: Slid e Reviewed Performed By: #### 1 [id number], 22974140, 0679076 #### [facility] (DEFAULT) [address] [place] [address] 12336 Coding Summaryon 09-27-2019 Coding Summary CODING DATE: [address] [facility] STATUS: Home PAYOR: Medicare ADMIT DX: [...] Lawrence Date Saved: 09/27/2019 11:11 am Normal [facility] Extra Greenon 09-27-2019 Tube Collected Yes [facility] Comment on above: Performed By: #### 1 [id number], 78493080, 0995366 #### [facility] (DEFAULT) [address] [place] [address] 87657 Nutrition Noteon 09-27-2019 Nutrition Note Pt eating poorly, av g less than 30% of meals per intake records. Supplements also taken sporadically. Suspect pain and constipation may be playing a role. No new wts. Last BM 09/23. Possible discharge later today. Will continue to follow and monitor need to adjust supplements ie. offer to make into a milkshake, [facility] Pharmacy Noteon 09-27-2019 Pharmacy Note [...] [Verified on: 09/27/2019 14:01 EDT] Virgie Santos [facility] Progress Note - Nurseon 08-1 Progress Note - Nurse 1710 tramadol 50mg po administered for #10 left upper thigh pain , will continue to monitor. [Electronically Signed on: 09/27/2019 17:09 EDT] Luli Mclain RN [Verified on: 09/27/2019 17:09 EDT] Luli Mclain RN [facility] Progress Note - Nurse 1800 one dulcolax suppository administered, will continue to monitor. [Electronically Signed on: 09/27/2019 18:03 EDT] Luli Mclain RN [Verified on: 09/27/2019 18:03 EDT] Luli Mclain RN [facility] Progress Note-Physicianon Progress Note-Physician DATE [...] PROGNOSIS: Good. Devorah Redd DO JOB #: [id number] [Electronically Signed on: 2019 10:28 EDT] HERIBERTO DEVORAH [Verified on: 2019 10:28 EDT] DEVORAH REDD DO [Transcribed on: 09/27/2019 13:52 EDT] GDU Normal [facility] .Auto Diff 1on 09-26-2019 Auto Waldo % 9 % Normal 1-12 [facility] Comment on above: Performed By: #### 1 [id number], [id number], 6844805 #### [facility] (DEFAULT) [address] [place] [address] 66268 Baso Abs# 0.0 x10 Normal 0.0-0.2 [facility] Comment on above: Performed By: #### 1 [id number], 39184937, 0505301 #### [facility] (DEFAULT) [address] [place] [address] 78793 Basophils/100 WBC (Bld) 0.1 % Low 0.2-2.0 [facility] Comment on above: Performed By: #### 1 [id number], 86412921, 0890794 #### [facility] (DEFAULT) [address] [place] [address] 26150 Eos Abs# 0.2 x10 Normal 0.0-0.4 [facility] Comment on above: Performed By: #### 1 [id number], 47823211, 6953531 #### [facility] (DEFAULT) [address] [place] [address] 62627 Eosinophils/100 WBC (Bld) 2.0 % Normal 0.9-4.0 [facility] Comment on above: Performed By: #### 1 [id number], 63281889, 4328254 #### [facility] (DEFAULT) [address] [place] [address] 10154 Lymphocytes (Bld) [#/Vol] 0.6 x10 Low 1.3-2.9 [facility] Comment on above: Performed By: #### 1 [id number], 37579989, 4344201 #### [facility] (DEFAULT) [address] [place] [address] 88888 Lymphocytes/100 WBC (Bld) 6 % Low 14-48 [facility] Comment on above: Performed By: #### 1 [id number], 97765188, 0651642 #### [facility] (DEFAULT) [address] [place] [address] Waldo Abs# 0.9 x10 High 0.0-0.8 [facility] Comment on above: Performed By: #### 1 [id number], 08737777, 9636937 #### [facility] (DEFAULT) [address] [place] [address] Neut Abs# 8.3 x10 Normal 1.5-9.2 [facility] Comment on above: Performed By: #### 1 [id number], 32327029, 3311346 #### [facility] (DEFAULT) [address] [place] [address] 24517 Neutrophils/100 WBC (Bld) 83 % Normal 44-88 [facility] Comment on above: Performed By: #### 1 [id number], 97088466, 2248250 #### [facility] (DEFAULT) [address] [place] [address]33[facility] Standardon 09-26-2019 Anion gap [Moles/Vol] 10.0 mmol/L Normal 5.0-19.0 [facility] Comment on above: Performed By: #### 1 [id number], 32603391, 2477041 #### [facility] (DEFAULT) [address] [place] [address] 00558 Calcium [Mass/Vol] 8.8 mg/dL Low 8.9-10.3 [facility] Comment on above: Performed By: #### 1 [id number], 52618353, 2539788 #### [facility] (DEFAULT) [address] [place] [address] 01617 Chloride [Moles/Vol] 103 mmol/L Normal 101-111 [facility] Comment on above: Performed By: #### 1 [id number], 10967882, 3183013 #### [facility] (DEFAULT) [address] [place] [address] CO2 [Moles/Vol] 28 mmol/L Normal 21-32 [facility] Comment on above: Performed By: #### 1 [id number], 90259135, 5566912 #### [facility] (DEFAULT) [address] [place] [address] Creatinine [Mass/Vol] 1.09 mg/dL Normal 0.60-1.30 [facility] Comment on above: Performed By: #### 1 [id number], 69243549, 3613484 #### [facility] (DEFAULT) [address] [place] [address] eGFR AA 58 mL/min/1.73m2 [facility] Comment on above: Result Comment: Automated Logistics Specialist kody Kidney disease could be indicated at eGFRs of less than 60 ml/min/1.73m2. Kidney Failure is indicated at less than 15 ml/min/1.73m2 Performed By: #### 1 [id number], 91366530, 2724515 #### [facility] (DEFAULT) [address] [place] [address] eGFR Non AA 48 mL/min/1.73m2 [facility] Comment on above: Performed By: #### 1 [id number], 51476032, 8707198 #### [facility] (DEFAULT) [address] [place] [address] 56041 Glucose [Mass/Vol] 94.0 mg/dL Normal 74.0-118.0 [facility] Comment on above: Performed By: #### 1 [id number], [id number], 2323018 #### [facility] (DEFAULT) [address] [place] [address] 22764 Osmolality [Osmolality] 276 mOsm/L [facility] Comment on above: Performed By: #### 1 [id number], [id number], [id number] #### [facility] (DEFAULT) [address] [place] [address] 91319 Potassium [Moles/Vol] 4.4 mmol/L Normal 3.6-5.1 [facility] Comment on above: Performed By: #### 1 [id number], [id number], [id number] #### [facility] (DEFAULT) [address] [place] [address] 02599 Sodium [Moles/Vol] 137.0 mmol/L Normal 136.0-144 . 0 [facility] Comment on above: Performed By: #### 1 [id number], [id number], [id number] #### [facility] (DEFAULT) [address] [place] [address] Urea nitrogen [Mass/Vol] 19 mg/dL Normal 8-26 [facility] Comment on above: Performed By: #### 1 [id number], [id number], [id number] #### [facility] (DEFAULT) [address] [place] [address] Urea nitrogen/Creatinine [Mass ratio] 17.0 mg/mg High 4.6-16.2 [facility] Comment on above: Performed By: #### 1 [id number], [id number], [id number] #### [facility] (DEFAULT) [address] [place], [place] [id number] CBC w/ Auto Diffon 0 Erythrocyte distribution width (RBC) [Ratio] 14.4 % Normal 11.5-15.0 [facility] Comment on above: Performed By: #### 1 [id number], [id number], [id number] #### [facility] (DEFAULT) [address] [place] [address] 31215 Hematocrit (Bld) [Volume fraction] 35.5 % Normal 33.7-40.4 [facility] Comment on above: Performed By: #### 1 [id number], [id number], [id number] #### [facility] (DEFAULT) [address] [place] [address] Hemoglobin (Bld) [Mass/Vol] 11.6 g/dL Normal 11.3-15.9 [facility] Comment on above: Performed By: #### 1 [id number], [id number], [id number] #### [facility] (DEFAULT) [address] [place] [address] 52637 Man Diff? Auto Normal [facility] Comment on above: Performed By: #### 1 [id number], [id number], [id number] #### [facility] (DEFAULT) [address] [place] [address] 04819 MCH (RBC) [Entitic mass] 33 pg Normal 24-34 [facility] Comment on above: Performed By: #### 1 [id number], [id number], [id number] #### [facility] (DEFAULT) [address] [place] [address] 84176 MCHC (RBC) [Mass/Vol] 33 g/dL Normal 26-37 [facility] Comment on above: Performed By: #### 1 [id number], 46948533, [id number] #### [facility] (DEFAULT) [address] [place] [address] 45500 MCV (RBC) [Entitic vol] 102 fL High 81-100 [facility] Comment on above: Performed By: #### 1 [id number], 50484347, [id number] #### [facility] (DEFAULT) [address] [place] [address] 36766 Platelet mean volume (Bld) [Entitic vol] 9.8 fL Normal 6.3-10.2 [facility] Comment on above: Performed By: #### 1 [id number], 77880709, [id number] #### [facility] (DEFAULT) [address] [place] [address] 77511 Platelets (Bld) [#/Vol] 236 x10 Normal 138-427 [facility] Comment on above: Performed By: #### 1 [id number], [id number], [id number] #### [facility] (DEFAULT) [address] [place] [address] 22738 RBC (Bld) [#/Vol] 3.49 x10 Low 3.70-5.30 [facility] Comment on above: Performed By: #### 1 [id number], 24834443, 4341798 #### [facility] (DEFAULT) [address] [place] [address] WBC (Bld) [#/Vol] 10.0 x10 [facility] Comment on above: Performed By: #### 1 [id number], [id number], [id number] #### [facility] (DEFAULT) [address] [place] [address] Consent Formson 09-26-2019 Consent Forms [id number]#1.00OTGTI FF Normal [facility] Consultation/Specialist Note on 09-26-2019 Consultation/Specialis t Note Patient: DELICIA HSU Age: 83 years [...] RIDDHISUDHEER HOLLOWAY [Verified on: 09/26/2019 07:35 EDT] RIDDHISUDHEER HOLLOWAY [facility] Progress Note - Nurseon 09-08 [...] on: 09/26/2019 07:45 EDT] Twila Cruz RN [facility] .Auto Diff 1on 09-25-2019 Auto Waldo % 8 % Normal 02-19 [facility] Comment on above: Performed By: #### 1 [id number], [id number], [id number] #### [facility] (DEFAULT) [address] [place] [address] 20211 Baso Abs# 0.0 x10 Normal 0.0-0.2 [facility] Comment on above: Performed By: #### 1 [id number], [id number], 6503963 #### [facility] (DEFAULT) [address] [place] [address] 93382 Basophils/100 WBC (Bld) 0.2 % Normal 0.2-2.0 [facility] Comment on above: Performed By: #### 1 [id number], 26936004, 5986106 #### [facility] (DEFAULT) [address] [place] [address] 03633 Eos Abs# 0.1 x10 Normal 0.0-0.4 [facility] Comment on above: Performed By: #### 1 [id number], 83352700, 9008560 #### [facility] (DEFAULT) [address] [place] [address] 92694 Eosinophils/100 WBC (Bld) 0.5 % Low 0.9-4.0 [facility] Comment on above: Performed By: #### 1 [id number], 61608601, 0809715 #### [facility] (DEFAULT) [address] [place] [address] 75682 Lymphocytes (Bld) [#/Vol] 1.1 x10 Low 1.3-2.9 [facility] Comment on above: Performed By: #### 1 [id number], 41512563, 0591505 #### [facility] (DEFAULT) [address] [place] [address] 21783 Lymphocytes/100 WBC (Bld) 9 % Low 14-48 [facility] Comment on above: Performed By: #### 1 [id number], 76496516, 8938959 #### [facility] (DEFAULT) [address] [place] [address] 50771 Waldo Abs# 1.0 x10 High 0.0-0.8 [facility] Comment on above: Performed By: #### 1 [id number], 13879915, 3865687 #### [facility] (DEFAULT) [address] [place] [address] Neut Abs# 9.6 x10 High 1.5-9.2 [facility] Comment on above: Performed By: #### 1 [id number], 87983924, 1174389 #### [facility] (DEFAULT) [address] [place] [address] Neutrophils/100 WBC (Bld) 82 % Normal 44-88 [facility] Comment on above: Performed By: #### 1 [id number], 89570752, 1949701 #### [facility] (DEFAULT) [address] [place] [address] ABORhon 09-25-2019 ABO and Rh group Nom (Bld) Hx Check: Not Found Anti-A: 4+ Anti-B: 0 Anti-D: 4+ DCon: NT A1: 0 B: 4+ ABORh Interp: A POS [facility] Comment on above: Performed By: #### 7 [id number], 87357632, [id number] #### [facility] (DEFAULT) [address] [place] [address] ABORh Retypeon 09-25-2019 ABO and Rh group Nom (Bld) Ordered by Discern. Anti-A: 4+ Anti-B: 0 Anti-D: 4+ DCon: NT A1: 0 B: 4+ ABORh Retype: A [facility] Comment on above: Performed By: #### 7 [id number], [id number], [id number] #### [facility] (DEFAULT) [address] [place] [address] ABSC Gelon 09-25-2019 ABSC Gel Negative Normal [facility] Comment on above: Performed By: #### 7 [id number], 70668922, [id number] #### [facility] (DEFAULT) [address] [place] [address] Anesthesia Noteon 09-25-2019 Anesthesia Note Patient: DONTAE [...] risk of pressure sore / SNOMED CT 925171739 / Confirmed CAD (coronary artery disease) / SNOMED CT 86819013 / Confirmed Hyperlipidemia / SNOMED CT 58959222 / Confirmed Hypertension / SNOMED CT 3187404036 / Confirmed Skin cancer / SNOMED CT 2100644052 / Confirmed Osteoporosis / SNOMED CT 106047134 / Confirmed Restless leg syndrome / SNOMED CT 88218229 / Confirmed Resolved: GERD (gastroesophageal reflux disease) / SNOMED CT 163401547 Histories Family History: Cancer Sister Brother Aneurysm Mother CHF - Congestive heart failure Father [place] (myocardial infarction) Sister Procedure history: Umbilical hernia (7474604034). Arthroscopy (04081961). Comments: 08/29/2019 12:57 ANTONYT Dionne Barbour RN arthroscopy of knee Cholecystectomy (22846632). Hysterectomy (227388997). Cataract (528289347). Shoulder (59359803). Comments: 08/29/2019 12:58 EDT Dionne Barbour RN arthroscopy CABG (Coronary artery bypass grafting) planned (199786303). Colonoscopy (302530666). EGD - Esophagogastroduodenoscop y (3432272238). Meniscectomy (951595922). Hip arthroplasty (101422845). Social History Electronic Cigarette/Vaping Assessment Electronic Cigarette [...] axis dev, LAFB, RV conduction delay. Plan [place] [employer]esthesiologists#(ASA) physical status classification: Class III. Anesthetic Preoperative Plan Anesthesia: Regional Spinal. Anesthetic plan, risks, benefits, and alternatives discussed with the patient and/or family. Patient verbalized understanding. Informed consent was given. Consent was signed by the patient. [Electronically Signed on: 09/25/2019 10:10 EDT] Enrike Mora MD [Verified on: 09/25/2019 10:10 EDT] Enrike Mora MD [facility] Blood Bank IDon 09-25-2019 Blood Bank ID BBID: [id number] [facility] Comment on above: Performed By: #### 7 [id number], [id number], [id number] #### [facility] (DEFAULT) [address] [place] [address] CBC w/ Auto Diffon 0 Erythrocyte distribution width (RBC) [Ratio] 14.4 % Normal 11.5-15.0 [facility] Comment on above: Performed By: #### 1 [id number], 39731741, 6770555 #### [facility] (DEFAULT) [address] [place] [address] Hematocrit (Bld) [Volume fraction] 39.2 % Normal 33.7-40.4 [facility] Comment on above: Performed By: #### 1 [id number], 87497582, 5078842 #### [facility] (DEFAULT) [address] [place] [address] Hemoglobin (Bld) [Mass/Vol] 12.8 g/dL Normal 11.3-15.9 [facility] Comment on above: Performed By: #### 1 [id number], 09508780, 2938857 #### [facility] (DEFAULT) [address] [place] [address] Man Diff? Auto Normal [facility] Comment on above: Performed By: #### 1 [id number], 80065148, 2023965 #### [facility] (DEFAULT) [address] [place] [address] 46875 MCH (RBC) [Entitic mass] 33 pg Normal 24-34 [facility] Comment on above: Performed By: #### 1 [id number], 86296006, 0928389 #### [facility] (DEFAULT) [address] [place] [address] 74713 MCHC (RBC) [Mass/Vol] 33 g/dL Normal 26-37 [facility] Comment on above: Performed By: #### 1 [id number], 34680326, 3040694 #### [facility] (DEFAULT) [address] [place] [address] 84022 MCV (RBC) [Entitic vol] 102 fL High 81-100 [facility] Comment on above: Performed By: #### 1 [id number], 19121674, 8419782 #### [facility] (DEFAULT) [address] [place] [address] 94272 Platelet mean volume (Bld) [Entitic vol] 9.4 fL Normal 6.3-10.2 [facility] Comment on above: Performed By: #### 1 [id number], 15777864, 1997453 #### [facility] (DEFAULT) [address] [place] [address] 52762 Platelets (Bld) [#/Vol] 272 x10 Normal 138-427 [facility] Comment on above: Performed By: #### 1 389691597, 30890435, 5079624 #### [facility] (DEFAULT) [address] [place] [address] 97493 RBC (Bld) [#/Vol] 3.85 x10 Normal 3.70-5.30 [facility] Comment on above: Performed By: #### 1 [id number], 09443506, 3418482 #### [facility] (DEFAULT) [address] [place] [address] 59770 WBC (Bld) [#/Vol] 11.7 x10 High 3.5-10.5 [facility] Comment on above: Performed By: #### 1 [id number], 74986173, 0456269 #### [facility] (DEFAULT) [address] [place] [address] 56589 Extra [place] 09-25-2019 Tube Collected Yes [facility] Comment on above: Performed By: #### 7 022060, 49927866, [id number] #### [facility] (DEFAULT) [address] [place] [address] H&Hon 09-25-2019 Hematocrit (Bld) [Volume fraction] 39.9 % Normal 33.7-40.4 [facility] Comment on above: Performed By: #### 7 661551, 12288070, 1386002661 #### [facility] (DEFAULT) [address] [place] [address] Hemoglobin (Bld) [Mass/Vol] 12.7 g/dL Normal 11.3-15.9 [facility] Comment on above: Performed By: #### 7 947151, 54714563, 7065042443 #### [facility] (DEFAULT) [address] [place] [address] History and Physicalon 09-24 History and Physical [id number] FF Normal [facility] MAGR Intraoperative Recordon 09-25-2019 MAGR Intraoperative Record MAGR Intra-Op Record Summary Primary Physician: Mi Licea DO Finalized Date/Time: 09/25/19 15:04:11 Pt. Name: HSUDELICIA/Sex: 1935 FEMALE Med Rec #: [id number] Physician: Mi Licea DO Financial #: [id number] Pt. Type: I Room/Bed: [facility]/ Admit/Disch: 09/25/19 06:52:00 - Institution: [...] Role Performed Surgeon - Primary Anesthesiologist of Access Tech Record Time In 09/25/19 09:37:00 09/25/19 09:37:00 09/25/19 09:37:00 Time Out 09/25/19 11:50:00 09/25/19 11:50:00 09/25/19 11:50:00 Procedure Arthroplasty Total Arthroplasty Total Arthroplasty Total Hip(Left) Hip(Left) Hip(Left) Last Modified By: Marj Sullivan RN, Stephanie RN Sauer, Stephanie RN 09/25/19 12:54:58 09/25/19 12:54:58 09/25/19 12:54:58 Entry 4 Entry 5 Entry 6 Case Attendee Montrell MCKEON, Shantal Moreira Leigh-Ann CST Role Performed Scrub Personnel Night Filler Night Filler Time In 09/25/19 09:37:00 09/25/19 09:37:00 09/25/19 [...] Primary Surgeon Mi Licea Modifiers Left Eduardo BOYD Surgeon Comment LEFT TOTAL HIP Start 09/25/19 [...] 50MM 6.5 X 30MM 6.5 X 15MM Social Security Specialist DEPUY DEPUY DEPUY Catalog # Lot Number [id number] Expiration Date 05/08/24 03/10/29 01/07/29 Serial Number [id number] REF 1217-30-500 REF 1217-15-500 Device Identifier Human Readable EDDA Machine Readable EDDA MR Class Implant Usage Data Site Hip L Hip L Hip L Quantity 1 1 1 Reason for Explant Reason Not Retained Explant Disposition Forensic Psychologist Sterility External Indicator Result Internal Indicator Results [...] Mi Licea James Huddleston, James By: Eduardo BOYD Eduardo Vallejo DO Size 6.5 X 15MM 50MM PS Social Security Specialist DEPUY DEPUY DEPUY Catalog # Lot Number [id number] Expiration Date 11/07/28 04/07/29 04/07/29 Serial Number REF 1217-15-500 REF [id number] REF 1246-03-000 Device Identifier Human Readable EDDA Machine Readable EDDA MR Class Implant Usage Data Site Hip L Hip L Hip L Quantity 1 1 1 Reason for Explant Reason Not Retained Explant Disposition Forensic Psychologist Sterility External Indicator Result Internal Indicator Results [...] SHORT NECK COLLAR 12/14 TAPER SIZE 11 Social Security Specialist DEPUY DEPUY Catalog # Lot Number [id number] Expiration Date 02/08/24 02/08/24 Serial Number REF [id number] REF 1365-22-000 Device Identifier Human Readable EDDA Machine Readable EDDA MR Class Implant Usage Data Site Hip L Hip L Quantity 1 1 Reason for Explant Reason Not Retained Explant Disposition Forensic Psychologist Sterility External Indicator Result Internal Indicator Results [...] 09/25/19 15:04 MARSHA [facility] PACU Record [facility] PACU Record [facility] Primary Physician: Mi Licea DO Finalized Date/Time: 09/25/19 12:53:39 Pt. Name: DELICIA HSU Jean Carlos Cha/Sex: 1935 FEMALE Med Rec #: [id number] Physician: Mi Licea DO Financial #: [id number] Pt. Type: I Room/Bed: 221/1 Admit/Disch: 09/25/19 06:52:00 - Institution: PACU Case Times MAGR Entry 1 In PACU I 09/25/19 11:50:00 Discharge from PACU 09/25/19 12:40:00 I Last Modified By: Dionne Yun RN 09/25/19 12:53:35 Finalized By: Halblaub, Sidsel RN Document Signatures Signed By: Doinne Yun RN 09/25/19 12:53 [facility] MAGR Preoperative Recordon 0 09-25-2019 MAGR Preoperative Record MAGR Pre-Op Record Summary Primary Physician: Mi Licea DO Finalized Date/Time: 09/25/19 11:58:52 Pt. Name: DELICIA HSU /Sex: 1935 FEMALE Med Rec #: [id number] Physician: Mi Licea DO Financial #: [id number] Pt. Type: I Room/Bed: [facility]/1 Admit/Disch: 09/25/19 06:52:00 - Institution: Pre-Op Case [...] Signed By: Dionne Yun RN 09/25/19 11:58 [facility] Nutrition Noteon 09-25-2019 Nutrition Note Pt admitted for sche duled Lt total hip sx; placed on a Regular diet as tolerated w/ post op supplements BID along w/ usual vitamin/mineral supplementation. Nutritional supplements adjusted to what's available in house. Per oil lease buyer assessment, Pt reports wt loss of 2-13lb, [...] to offer prunes/prune alfred q am. 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 Pt also complains of freezing . Temp 97.8. Pt given a warm blanket and medicated with Morphine 2mg IVP as ordered. [Electronically Signed on: 09/25/2019 19:48 EDT] Indy Vidal RN [Verified on: 09/25/2019 19:48 EDT] Indy Vidal RN [facility] UA Ocjco2vu 09-25-2019 RBC (U) [#/Vol] 0-2 [facility] Comment on above: Order Comment: Urina lysis Microscopic order added on by Can[employer] Expert Rules system. Performed By: #### 7 [id number], [id number], [id number] #### [facility] (DEFAULT) [address] [place] [address] 91287 UA Bacteria 4+ [facility] Comment on above: Order Comment: Urina lysis Microscopic order added on by [employer] system. Performed By: #### 7 852759, 88658210, [id number] #### [facility] (DEFAULT) [address] [place] [address] UA Squam Epi Rare [facility] Comment on above: Order Comment: Urina lysis Microscopic order added on by Dis[employer] Expert Rules system. Performed By: #### 7 492329, [id number], [id number] #### [facility] (DEFAULT) [address] [place] [address] 46940 UA WBC 0-2 [facility] Comment on above: Order Comment: Urina lysis Microscopic order added on by Dis[employer] Expert Rules system. Performed By: #### 7 849446, 15739069, [id number] #### [facility] (DEFAULT) [address] [place] [address] UA w Culture if Ind Standard on 09-25-2019 Breakpoint UA [facility] Comment on above: Order Comment: sim insert Performed By: #### 7 172542, 61705785, [id number] #### [facility] (DEFAULT) [address] [place] [address] Color (U) Yellow [facility] Comment on above: Order Comment: sim insert Performed By: #### 7 799461, 65298533, [id number] #### [facility] (DEFAULT) [address] [place] [address] Culture? Indicated [facility] Comment on above: Order Comment: sim insert Performed By: #### 7 557561, 09479346, [id number] #### [facility] (DEFAULT) [address] [place] [address] Glucose (U) [Mass/Vol] Negative [facility] Comment on above: Order Comment: sim insert Performed By: #### 7 878174, 27464718, [id number] #### [facility] (DEFAULT) [address] [place] [address] Ketones Ql (U) Negative [facility] Comment on above: Order Comment: sim insert Performed By: #### 7 062877, 18649518, [id number] #### [facility] (DEFAULT) [address] [place] [address] Micro? Indicated [facility] Comment on above: Order Comment: sim insert Performed By: #### 7 087899, 11976247, [id number] #### [facility] (DEFAULT) [address] [place] [address] UA Bilirubin Negative Normal [facility] Comment on above: Order Comment: sim insert Performed By: #### 7 907958, 74994209, [id number] #### [facility] (DEFAULT) [address] [place] [address] UA Blood Negative Normal NEGATIVE [facility] Comment on above: Order Comment: sim insert Performed By: #### 7 206182, 77233342, [id number] #### [facility] (DEFAULT) [address] [place] [address] UA Clarity CLEAR Normal CLEAR [facility] Comment on above: Order Comment: sim insert Performed By: #### 7 705262, 48801847, [id number] #### [facility] (DEFAULT) [address] [place] [address] UA Leuk Est SMALL Abnormal NEGATIVE [facility] Comment on above: Order Comment: sim insert Performed By: #### 7 887115, 10494508, [id number] #### [facility] (DEFAULT) [address] [place] [address] UA Nitrite Positive Abnormal NEGATIVE [facility] Comment on above: Order Comment: sim insert Performed By: #### 7 322627, 06280786, [id number] #### [facility] (DEFAULT) [address] [place] [address] UA pH 7.0 Normal 5-8 [facility] Comment on above: Order Comment: sim insert Performed By: #### 7 798971, 19571215, [id number] #### [facility] (DEFAULT) [address] [place] [address] 25149 UA Protein Negative Normal NEGATIVE [facility] Comment on above: Order Comment: sim insert Performed By: #### 7 335370, 71384470, [id number] #### [facility] (DEFAULT) [address] [place] [address] UA Spec Grav 1.020 Normal 1.001-1.03 5 [facility] Comment on above: Order Comment: sim insert Performed By: #### 7 512268, 83338993, [id number] #### [facility] (DEFAULT) [address] [place] [address] UA Urobilinogen 0.2 mg/dL Normal 0.2-1.0 [facility] Comment on above: Order Comment: sim insert Performed By: #### 7 591578, 42743768, [id number] #### [facility] (DEFAULT) [address] [place] [address] Urine Source Clean Catch Normal [facility] Comment on above: Order Comment: sim insert Performed By: #### 7 314353, 30074936, [id number] #### [facility] (DEFAULT) [address] [place] [address] XR Hip Complete Lefton 09-24 XR Hip Complete Left EXAM: XR HIP COMPLE TE LEFT HISTORY: Status post left hip. COMPARISON: [...] MD 09/25/19 3:55 pm Technologist: OCHOA NAZARIO [facility] Patient Handouton 09-24-2019 Patient Handout [facility] Progress Note - Nurseon 09-08 Progress Note - Nurse Spoke with pt zach colladoing arrival time of 0700 and NPO status. Verbalized understanding. [Electronically Signed on: 09/22/2019 09:47 EDT] Navin CHAIDEZKimberley [Verified on: 09/22/2019 09:47 EDT] Navin CHAIDEZKimberley Normal [facility] SARS-CoV-2 (COVID-19) PCRon 09-22-2019 COVID-19 PCR Not Detected Normal Not Detected [facility] Comment on above: Performed By: #### 7 617235, [id number], [id number] #### [facility] (DEFAULT) [address] [place] [address] Employed in healthcare? Unknown [facility] Comment on above: Performed By: #### 7 944179, 81369172, [id number] #### [facility] (DEFAULT) [address] [place] [address] Group care resident? Unknown [facility] Comment on above: Performed By: #### 7 015465, [id number], [id number] #### [facility] (DEFAULT) [address] [place] [address] Hospitalized due to COVID-19? Unknown [facility] Comment on above: Performed By: #### 7 149442, 93428145, [id number] #### [facility] (DEFAULT) [address] [place] [address] In ICU? Unknown [facility] Comment on above: Performed By: #### 7 331028, 98560609, [id number] #### [facility] (DEFAULT) [address] [place] [address] status? Unknown [facility] Comment on above: Performed By: #### 7 541869, 80498546, [id number] #### [facility] (DEFAULT) [address] [place] [address] Symptomatic as defined by CDC? Unknown [facility] Comment on above: Performed By: #### 7 [id number], [id number], [id number] #### [facility] (DEFAULT) [address] [place] [address] Coding Summaryon 09-13-2019 Coding Summary CODING DATE: [facility] STATUS: Home PAYOR: Medicare APC DESCRIPTION 5733 Level 3 Minor Procedures ADMIT DX: REASON FOR VISIT DX: Z01.818 Encounter for other preprocedural examination I10 Essential (primary) hypertension I25.10 Atherosclerotic heart disease of [place]reafski coronary artery without angina pectoris FINAL DX: PRINCIPAL: Z01.818 Encounter for other preprocedural examination SECONDARY: I10 Essential (primary) hypertension I25.10 Atherosclerotic heart disease of [place]reafski coronary artery without angina pectoris K21.9 Gastro-esophageal [...] Marisela Lawrence Date Saved: 09/13/2019 09:18 am [facility] Coding Summaryon 09-06-2019 Coding Summary CODING DATE: [facility] STATUS: Home PAYOR: Medicare APC DESCRIPTION 5733 Level 3 Minor Procedures ADMIT DX: REASON FOR VISIT DX: Z01.818 Encounter for other preprocedural examination I10 Essential (primary) hypertension I25.10 Atherosclerotic heart disease of andreafski coronary artery without angina pectoris FINAL DX: PRINCIPAL: Z01.818 Encounter for other preprocedural examination SECONDARY: I10 Essential (primary) hypertension I25.10 Atherosclerotic heart disease of andreafski coronary artery without angina pectoris K21.9 Gastro-esophageal reflux disease without esophagitis PYMT PROC APC STAT DESCRIPTION DOCTOR NAME DATE NOTE: The code number assigned matches the documented diagnosis and / or procedure in the patient's chart. However, the narrative phrase printed from the coding software may appear abbreviated, or result in slightly different terminology. Coded By: Marisela Lawrence Date Saved: 09/06/2019 09:20 am [facility] Progress Note - Nurseon 08-09 Progress Note - Nurse Lauren at Dr Aydin rosario notified that pt has positive urine culture. [Electronically Signed on: 09/04/2019 13:37 EDT] Dionne Yun RN [Verified on: 09/04/2019 13:37 EDT] Dionne Yun RN [facility] Progress Note - Nurse chart reviewed per Dr Akbar anesthesiologist, and cleared for surgery on 09/25/2019 [Electronically Signed on: 09/04/2019 14:30 EDT] Nimco Albarado RN [Verified on: 09/04/2019 14:30 EDT] Nimco Albarado RN [facility] Provider Orderson 09-04-2019 Provider Orders [id number] FF [facility] C Urineon 09-03-2019 C Urine [...] <=4 Verified Tri/Sulf S <=2/38 Verified Normal [facility] Comment on above: Performed By: #### 1 [id number], [id number], [id number] #### [facility] (DEFAULT) [address] [place] [address] C MRSA Screenon 09-02-2019 C MRSA Screen Negative Normal [facility] Comment on above: Performed By: #### 1 [id number] #### [facility] (DEFAULT) [address] [place] [address] .Auto Diff 1on 09-01-2019 Auto Waldo % 10 % Normal 1-12 [facility] Comment on above: Performed By: #### 7 [id number], [id number], [id number] #### [facility] (DEFAULT) [address] [place] [address] 40286 Baso Abs# 0.0 x10 Normal 0.0-0.2 [facility] Comment on above: Performed By: #### 7 [id number], [id number], [id number] #### [facility] (DEFAULT) [address] [place] [address] 30453 Basophils/100 WBC (Bld) 0.3 % Normal 0.2-2.0 [facility] Comment on above: Performed By: #### 7 542173, [id number], [id number] #### [facility] (DEFAULT) [address] [place] [address] 16946 Eos Abs# 0.1 x10 Normal 0.0-0.4 [facility] Comment on above: Performed By: #### 7 838991, [id number], [id number] #### [facility] (DEFAULT) [address] [place] [address] 31357 Eosinophils/100 WBC (Bld) 0.9 % Normal 0.9-4.0 [facility] Comment on above: Performed By: #### 7 342432, [id number], [id number] #### [facility] (DEFAULT) [address] [place] [address] 95154 Lymphocytes (Bld) [#/Vol] 1.0 x10 Low 1.3-2.9 [facility] Comment on above: Performed By: #### 7 685194, [id number], [id number] #### [facility] (DEFAULT) [address] [place] [address] 43979 Lymphocytes/100 WBC (Bld) 10 % Low 14-48 [facility] Comment on above: Performed By: #### 7 028531, [id number], [id number] #### [facility] (DEFAULT) [address] [place] [address] 22931 Waldo Abs# 1.0 x10 High 0.0-0.8 [facility] Comment on above: Performed By: #### 7 083167, [id number], [id number] #### [facility] (DEFAULT) [address] [place] [address] 81099 Neut Abs# 8.0 x10 Normal 1.5-9.2 [facility] Comment on above: Performed By: #### 7 542256, [id number], [id number] #### [facility] (DEFAULT) [address] [place] [address] 42626 Neutrophils/100 WBC (Bld) 79 % Normal 44-88 [facility] Comment on above: Performed By: #### 7 641561, [id number], [id number] #### [facility] (DEFAULT) [address] [place] [address] 56654 BMP Standardon 09-01-2019 Anion gap [Moles/Vol] 15.0 mmol/L Normal 5.0-19.0 [facility] Comment on above: Performed By: #### 7 250304, [id number], [id number] #### [facility] (DEFAULT) [address] [place] [address] 09786 Calcium [Mass/Vol] 9.2 mg/dL Normal 8.9-10.3 [facility] Comment on above: Performed By: #### 7 650100, [id number], [id number] #### [facility] (DEFAULT) [address] [place] [address] 17055 Chloride [Moles/Vol] 101 mmol/L Normal 101-111 [facility] Comment on above: Performed By: #### 7 215466, [id number], [id number] #### [facility] (DEFAULT) [address] [place] [address] 71279 CO2 [Moles/Vol] 25 mmol/L Normal 21-32 [facility] Comment on above: Performed By: #### 7 012270, [id number], [id number] #### [facility] (DEFAULT) [address] [place] [address] 38237 Creatinine [Mass/Vol] 1.17 mg/dL Normal 0.60-1.30 [facility] Comment on above: Performed By: #### 7 417833, 08308914, [id number] #### [facility] (DEFAULT) [address] [place] [address] 75960 eGFR AA 54 mL/min/1.73m2 [facility] Comment on above: Result Comment: Automated Logistics Specialist kody Kidney disease could be indicated at eGFRs of less than 60 ml/min/1.73m2. Kidney Failure is indicated at less than 15 ml/min/1.73m2 Performed By: #### 7 166479, [id number], [id number] #### [facility] (DEFAULT) [address] [place] [address] 26863 eGFR Non AA 44 mL/min/1.73m2 [facility] Comment on above: Performed By: #### 7 053851, [id number], [id number] #### [facility] (DEFAULT) [address] [place] [address] 98528 Glucose [Mass/Vol] 94.0 mg/dL Normal 74.0-118.0 [facility] Comment on above: Performed By: #### 7 408605, [id number], [id number] #### [facility] (DEFAULT) [address] [place] [address] 93828 Osmolality [Osmolality] 276 mOsm/L [facility] Comment on above: Performed By: #### 7 128315, [id number], [id number] #### [facility] (DEFAULT) [address] [place] [address] Potassium [Moles/Vol] 4.0 mmol/L Normal 3.6-5.1 [facility] Comment on above: Performed By: #### 7 263513, [id number], [id number] #### [facility] (DEFAULT) [address] [place] [address] Sodium [Moles/Vol] 137.0 mmol/L Normal 136.0-144 . 0 [facility] Comment on above: Performed By: #### 7 613055, 26381486, [id number] #### [facility] (DEFAULT) [address] [place] [address] Urea nitrogen [Mass/Vol] 20 mg/dL Normal 8-26 [facility] Comment on above: Performed By: #### 7 491282, 40151054, [id number] #### [facility] (DEFAULT) [address] [place] [address] Urea nitrogen/Creatinine [Mass ratio] 17.0 mg/mg High 4.6-16.2 [facility] Comment on above: Performed By: #### 7 410237, [id number], [id number] #### [facility] (DEFAULT) [address] [place] [address] CBC w/ Auto Diffon 0 Erythrocyte distribution width (RBC) [Ratio] 13.9 % Normal 11.5-15.0 [facility] Comment on above: Performed By: #### 7 715924, 05366020, [id number] #### [facility] (DEFAULT) [address] [place] [address] Hematocrit (Bld) [Volume fraction] 38.5 % Normal 33.7-40.4 [facility] Comment on above: Performed By: #### 7 698742, 41526815, [id number] #### [facility] (DEFAULT) [address] [place] [address] 78288 Hemoglobin (Bld) [Mass/Vol] 12.6 g/dL Normal 11.3-15.9 [facility] Comment on above: Performed By: #### 7 003450, [id number], [id number] #### [facility] (DEFAULT) [address] [place] [address] 86424 Man Diff? Auto Normal [facility] Comment on above: Performed By: #### 7 498775, 12460844, [id number] #### [facility] (DEFAULT) [address] [place] [address] 91951 MCH (RBC) [Entitic mass] 33 pg Normal 24-34 [facility] Comment on above: Performed By: #### 7 249743, 35788559, [id number] #### [facility] (DEFAULT) [address] [place] [address] 16561 MCHC (RBC) [Mass/Vol] 33 g/dL Normal 26-37 [facility] Comment on above: Performed By: #### 7 439531, 32064530, [id number] #### [facility] (DEFAULT) [address] [place] [address] 48768 MCV (RBC) [Entitic vol] 101 fL High 81-100 [facility] Comment on above: Performed By: #### 7 590253, 73305467, [id number] #### [facility] (DEFAULT) [address] [place] [address] 59025 Platelet mean volume (Bld) [Entitic vol] 9.5 fL Normal 6.3-10.2 [facility] Comment on above: Performed By: #### 7 187201, 08140279, [id number] #### [facility] (DEFAULT) [address] [place] [address] 83068 Platelets (Bld) [#/Vol] 292 x10 Normal 138-427 [facility] Comment on above: Performed By: #### 7 436465, 06859364, [id number] #### [facility] (DEFAULT) [address] [place] [address] 05623 RBC (Bld) [#/Vol] 3.82 x10 Normal 3.70-5.30 [facility] Comment on above: Performed By: #### 7 666312, 86851242, [id number] #### [facility] (DEFAULT) [address] [place] [address] WBC (Bld) [#/Vol] 10.1 x10 Normal 3.5-10.5 [facility] Comment on above: Performed By: #### 7 062341, 58428564, [id number] #### [facility] (DEFAULT) [address] [place] [address] UA [id number] 09-01-2019 RBC (U) [#/Vol] None Seen [facility] Comment on above: Order Comment: Urina lysis Microscopic order added on by [employer] Rules system. Performed By: #### 1 [id number], [id number], [id number] #### [facility] (DEFAULT) [address] [place] [address] UA Amorph. 1+ [facility] Comment on above: Order Comment: Urina lysis Microscopic order added on by [employer] Rules system. Performed By: #### 1 [id number], [id number], [id number] #### [facility] (DEFAULT) [address] [place] [address] UA Bacteria 4+ [facility] Comment on above: Order Comment: Urina lysis Microscopic order added on by [employer] system. Performed By: #### 1 [id number], [id number], [id number] #### [facility] (DEFAULT) [address] [place] [address] UA Squam Epi Moderate [facility] Comment on above: Order Comment: Urina lysis Microscopic order added on by [employer] system. Performed By: #### 1 [id number], [id number], [id number] #### [facility] (DEFAULT) [address] [place] [address] UA WBC 15-20 [facility] Comment on above: Order Comment: Urina lysis Microscopic order added on by [employer] system. Performed By: #### 1 [id number], 99897579, [id number] #### [facility] (DEFAULT) [address] [place] [address] 59900 UA w Culture if Ind Standard on 09-01-2019 Breakpoint UA Normal [facility] Comment on above: Performed By: #### 1 [id number], [id number], [id number] #### [facility] (DEFAULT) [address] [place] [address] 52301 Color (U) Yellow Normal [facility] Comment on above: Performed By: #### 1 [id number], 68920903, 7256409 #### [facility] (DEFAULT) [address] [place] [address] 32730 Culture? Yes Normal [facility] Comment on above: Performed By: #### 1 [id number], 01071133, [id number] #### [facility] (DEFAULT) [address] [place] [address] 86945 Glucose (U) [Mass/Vol] Negative Normal [facility] Comment on above: Performed By: #### 1 [id number], 21639706, [id number] #### [facility] (DEFAULT) [address] [place] [address] 63616 Ketones Ql (U) Negative [facility] Comment on above: Performed By: #### 1 [id number], 43988767, [id number] #### [facility] (DEFAULT) [address] [place] [address] 01670 Micro? Indicated [facility] Comment on above: Performed By: #### 1 [id number], 08430687, [id number] #### [facility] (DEFAULT) [address] [place] [address] 91245 UA Bilirubin Negative Normal [facility] Comment on above: Performed By: #### 1 [id number], 21034831, [id number] #### [facility] (DEFAULT) [address] [place] [address] 17237 UA Blood TRACE Abnormal NEGATIVE [facility] Comment on above: Performed By: #### 1 [id number], [id number], [id number] #### [facility] (DEFAULT) [address] [place] [address] 08754 UA Clarity CLEAR Normal CLEAR [facility] Comment on above: Performed By: #### 1 [id number], 96246365, [id number] #### [facility] (DEFAULT) [address] [place] [address] 12342 UA Leuk Est MODERATE Abnormal NEGATIVE [facility] Comment on above: Performed By: #### 1 [id number], 27861230, [id number] #### [facility] (DEFAULT) [address] [place] [address] 26619 UA Nitrite Positive Abnormal NEGATIVE [facility] Comment on above: Performed By: #### 1 [id number], 55888835, 4541335 #### [facility] (DEFAULT) [address] [place] [address] 97294 UA pH 5.5 Normal 5-8 [facility] Comment on above: Performed By: #### 1 [id number], 51040868, 9462377 #### [facility] (DEFAULT) [address] [place] [address] 54339 UA Protein Negative Normal NEGATIVE [facility] Comment on above: Performed By: #### 1 [id number], 19138404, 4109409 #### [facility] (DEFAULT) [address] [place] [address] 90000 UA Spec Grav 1.025 Normal 1.001-1.[address] [place] [address] Comment on above: Performed By: #### 1 [id number], 80332800, 9515652 #### [facility] (DEFAULT) [address] [place] [address] 16294 UA Urobilinogen 0.2 mg/dL Normal 0.2-1.0 [facility] Comment on above: Performed By: #### 1 [id number], 55449280, 4083835 #### [facility] (DEFAULT) [address] [place] [address] 41205 Urine Source Clean Catch Normal [facility] Comment on above: Performed By: #### 1 [id number], 20928687, 0862673 #### [facility] (DEFAULT) [address] [place] [address] 20885 JOINT PAIN INJECTIONon 09-06 JOINT PAIN INJECTION [facility] Department of Radiology [address] [place] [address] Patient Name: DELICIA HSU : [...] guidance. Electronically signed by:Christy Ochoa. Transcribed by: [email or web address], User Resident: Electronically Signed by: CHRISTY OCHOA @ 09/09/2018 05:57 PM Normal [facility] Comment on above: Order Comment: , Dr. Ochoa , Body Part: Hip , Side: LEFT , Dr. Ochoa , Body Part: Hip , Side: LEFT , , , Ordering Provider - HERMELINDO HILLMAN MD , CT 3D LOWER EXTREMITY WO CON TRAST LEFTon 08-02-2018 CT 3D LOWER EXTREMITY WO CONTRAST LEFT [facility] Department of Radiology [address] [place] [id number] Patient Name: DELICIA HSU : 1935 Sex: F Age: Race: White Pt. Location: Patient Status: D Ordered Date: 07/22/2018 9:55:00 AM Completed Date: 08/02/2018 09:41 AM Requesting Provider: MIRTHA VELÁSQUEZ Attending Provider: MIRTHA VELÁSQUEZ Report Copy To: GYPSY MCMAHON Signs & Symptoms: S72.045D Nondisp fx of base of nk of l femr, 7thD I10 History: [place], PHONE:[phone] OR [phone],*NEEDS ORTHO F/U APPT. MEDICARE NO PC REQ [...] arthritis. Electronically signed by:Coy Jerome. Transcribed by: [email or web address], User Resident: Electronically Signed by: COY JEROME @ 08/08/2018 02:20 PM Normal [facility] Comment on above: Order Comment: , Jessie perkins left hip healing HIP LEFT 1 OR 2 VWS WITH PEL VISon 03-18-2018 HIP LEFT 1 OR 2 VWS WITH PELVIS [facility] Department of Radiology [address] [place] [address] Patient Name: DELICIA HSU : [...] study Electronically signed by:Coy Jerome. Transcribed by: [email or web address], User Resident: Electronically Signed by: COY JEROME @ 03/18/2018 02:19 PM Normal [facility] Comment on above: Order Comment: , , = ========= , Ordering Provider - MIRTHA VELÁSQUEZ PA-C , HIP LEFT 1 OR 2 VWS WITH PEL VISon 01-10-2018 HIP LEFT 1 OR 2 VWS WITH PELVIS [facility] Department of Radiology [address] [place] [id number] Patient Name: DELICIA HSU : 1935 Sex: F Age: Race: White Pt. Location: Patient Status: Ordered Date: 01/10/2018 1:10:00 PM Completed Date: 01/10/2018 01:10 PM Requesting Provider: MIRTHA VELÁSQUEZ Attending Provider: Report Copy To: Signs & Symptoms: S72.045D Nondisp fx of base of nk of l femr, 7thD I10 History: [place] Comments: , Views (X-RAY, HIP): Radiologic Protocol [...] arthritis. Electronically signed by:Manjit Whatley. Transcribed by: [email or web address], User Resident: Electronically Signed by: MANJIT WHATLEY @ 01/10/2018 04:38 PM Normal [facility] Comment on above: Order Comment: , Carmella ws (X-RAY, HIP): Radiologic Protocol , Views (X-RAY, HIP): Radiologic Protocol , , , Ordering Provider - MIRTHA VELÁSQUEZ PA-C , HIP LEFT 1 OR 2 VWS WITH PEL VISon 11-01-2017 HIP LEFT 1 OR 2 VWS WITH PELVIS [facility] Department of Radiology [address] [place] [id number] Patient Name: DELICIA HSU : 1935 Sex: F Age: Race: White Pt. Location: Patient Status: Ordered Date: 11/01/2017 3:00:00 PM Completed Date: 11/01/2017 03:00 PM Requesting Provider: MIRTHA VELÁSQUEZ Attending Provider: Report Copy To: Signs & Symptoms: S72.045D Nondisp fx of base of nk of l femr, 7thD I10 History: [place] Comments: , Views (X-RAY, HIP): Radiologic Protocol [...] , , , Ordering Provider - MIRTHA TIJERINAC , PROTOCOL: AP(PA) and Lateral views were obtained. COMPARISON: September 21, 2017. FINDINGS: Neck fracture of proximal left femur internally fixated with multiple screws. No interval change in appearance since the prior study. Intact bony ring of pelvis on AP view. IMPRESSION: ORIF of left femoral neck fracture with limited healing, similar to prior study. Electronically signed by:Gerson Rodriguez. Transcribed by: [email or web address], User Resident: Electronically Signed by: GERSON RODRIGUEZ @ 11/01/2017 03:25 PM Normal [facility] Comment on above: Order Comment: , Carmella ws (X-RAY, HIP): Radiologic Protocol , Views (X-RAY, HIP): Radiologic Protocol , , , Ordering Provider - MIRTHA VELÁSQUEZ PA-C , HIP LEFT 1 OR 2 VWS WITH PEL VISon 09-21-2017 HIP LEFT 1 OR 2 VWS WITH PELVIS [facility] Department of Radiology [address] [place] [id number] Patient Name: DELICIA HSU : 1935 Sex: F Age: Race: White Pt. Location: Patient Status: Ordered Date: 09/21/2017 2:00:00 PM Completed Date: 09/21/2017 01:58 PM Requesting Provider: MIRTHA VELÁSQUEZ Attending Provider: Report Copy To: Signs & Symptoms: S72.045D Nondisp fx of base of nk of l femr, 7thD I10 History: [place] Comments: , , , Ordering Provider - [...] , , , Ordering Provider - MIRTHA MORENO-C , PROTOCOL: AP(PA) and Lateral views were obtained. COMPARISON: September 02, 2017 FINDINGS: Soft tissues: Vascular calcifications and saphenous vein clips Bones: Screw fixation of subcapital fracture with still limited healing Joints: Moderate bilateral hip arthritis IMPRESSION: Unchanged screw fixation of left hip fracture Electronically signed by:Coy Jerome. Transcribed by: [email or web address], User Resident: Electronically Signed by: COY JEROME @ 09/21/2017 03:27 PM Normal [facility] Comment on above: Order Comment: , , = ========= , Ordering Provider - MIRTHA MORENO-C , Social History Date Type Detail Facility [facility]: [facility] Start: 09-22-2022 Tobacco smoking status Never [facility] Start: 05-19-2022 End: 06-09-2022 Tobacco smoking status Ex-smoker (finding) [facility] Start: 1935 Sex Assigned At Female F [facility] Unknown if ever smoked [employer] Other Sex Assigned At [facility] Vital Signs Date Time Vital Sign Value Performing Clinician Facility 05-24-2023 13:35-0400 Body height 177.8 cm MD Gypsy Mcmahon Work Phone: [facility] 05-24-2023 13:35-0400 Body mass index (BMI) [Ratio] 18.8 kg/m2 MD Gypsy Mcmahon Work Phone: [facility] 05-24-2023 13:35-0400 Body temperature 97.7 [degF] MD Gypsy Mcmahon Work Phone: [facility] 05-24-2023 13:35-0400 Body weight 59.42 kg MD Gypsy Mcmahon Work Phone: [facility] 05-24-2023 13:35-0400 Diastolic blood pressure 54 mm[Hg] MD Gypsy Mcmahon Work Phone: [facility] 05-24-2023 13:35-0400 Heart rate 63 /min MD Gypsy Mcmahon Work Phone: [facility] 05-24-2023 13:35-0400 Systolic blood pressure 127 mm[Hg] MD Gypsy Mcmahon Work Phone: [facility] 05-21-2023 10:26-0400 Body height 177.8 cm MD Gypsy Mcmahon Work Phone: [facility] 05-21-2023 09:54-0400 Body mass index (BMI) [Ratio] 18.6 kg/m2 MD Gypsy Mcmahon Work Phone: [facility] 05-21-2023 09:54-0400 Body weight 58.96 kg MD Gypsy Mcmahon Work Phone: [facility] 05-05-2023 16:40-0400 Diastolic blood pressure 71 mm[Hg] MD Jacinto Max Work Phone: [facility] 05-05-2023 16:40-0400 Systolic blood pressure 170 mm[Hg] MD Jacinto Max Work Phone: [facility] 05-05-2023 16:36-0400 Body height 177.8 cm MD Jacinto Max Work Phone: [facility] 05-05-2023 16:36-0400 Body temperature 98.1 [degF] MD Jacinto Max Work Phone: [facility] 05-05-2023 16:36-0400 Body weight 59.87 kg MD Jacinto Max Work Phone: [facility] 05-05-2023 16:36-0400 Heart rate 71 /min MD Jacinto Max Work Phone: [facility] 05-05-2023 16:36-0400 Respiratory rate 18 /min MD Jacinto Max Work Phone: [facility] 05-05-2023 16:36-0400 SaO2% (BldA) [Mass fraction] 98 % MD Jacinto Max Work Phone: [facility] 04-15-2023 13:30-0500 Body height 167.64 cm MD Jacinto Max Work Phone: [facility] 04-15-2023 13:30-0500 Body mass index (BMI) [Ratio] 20.8 kg/m2 MD Jacinto Max Work Phone: [facility] 04-15-2023 13:30-0500 Body temperature 97.2 [degF] MD Jacinto Max Work Phone: [facility] 04-15-2023 13:30-0500 Body weight 58.57 kg MD Jacinto Max Work Phone: [facility] 04-15-2023 13:30-0500 Diastolic blood pressure 75 mm[Hg] MD Jacinto Mxa Work Phone: [facility] 04-15-2023 13:30-0500 Heart rate 60 /min MD Jacinto Max Work Phone: [facility] 04-15-2023 13:30-0500 Systolic blood pressure 165 mm[Hg] MD Jacinto Max Work Phone: [facility] 02-26-2023 10:00-0500 Body height 167.64 cm MD Jacinto Max Work Phone: [facility] 02-26-2023 10:00-0500 Diastolic blood pressure 76 mm[Hg] MD Jacinto Max Work Phone: [facility] 02-26-2023 10:00-0500 Systolic blood pressure 156 mm[Hg] MD Jacinto Max Work Phone: [facility] 02-25-2023 10:15-0500 Body height 175.26 cm MD Jacinto Max Work Phone: [facility] 02-25-2023 10:15-0500 Body weight 59.1 kg MD Jacinto Max Work Phone: [facility] 02-25-2023 10:02-0500 Diastolic blood pressure 74 mm[Hg] MD Jacinto Max Work Phone: [facility] 02-25-2023 10:02-0500 Heart rate 67 /min MD Jacinto Max Work Phone: [facility] 02-25-2023 10:02-0500 Systolic blood pressure 157 mm[Hg] MD Jacinto Max Work Phone: [facility] 02-18-2023 14:00-0500 Body height 167.64 cm Jacinto Max Other [facility] 02-18-2023 14:00-0500 Body mass index (BMI) [Ratio] 20.66 kg/m2 Jacinto Max Other [facility] Other 02-18-2023 14:00-0500 Body temperature 97.2 [degF] Jacinto Max Other [facility] Other 02-18-2023 14:00-0500 Body weight 58.06 kg Jacinto Max Other [facility] Other 02-18-2023 14:00-0500 Body weight 58.05 kg MD Jacinto Max Work Phone: [facility] 02-18-2023 14:00-0500 Diastolic blood pressure 66 mm[Hg] Jacinto Max Other [facility] 02-18-2023 14:00-0500 Systolic blood pressure 150 mm[Hg] Jacinto Max Other [facility] 02-16-2023 13:30-0500 Body height 167.64 cm Gypsy Mcmahon Other [facility] 02-16-2023 13:30-0500 Body mass index (BMI) [Ratio] 20.66 kg/m2 Gypsy Mcmahon Other [facility] [facility] Other 02-16-2023 13:30-0500 Body weight 58.06 kg Gypsy Mcmahon Other [employer] [facility] Other 02-16-2023 13:30-0500 Body weight 58.05 kg MD Jacinto Max Work Phone: [facility] 02-16-2023 13:30-0500 Diastolic blood pressure 68 mm[Hg] Gypsy Mcmahon Other [facility] 02-16-2023 13:30-0500 SaO2% (BldA) [Mass fraction] 96 % Gypsy Mcmahon Other [facility] [facility] Other 02-16-2023 13:30-0500 Systolic blood pressure 140 mm[Hg] Gypsy Mcmahon Other [facility] 02-04-2023 09:09-0500 Heart rate 84 /min MALATHI VIEIRA [facility] 02-04-2023 09:09-0500 SaO2% (BldA) [Mass fraction] 95 % MALATHI VIEIRA [facility] 02-04-2023 09:08-0500 Diastolic blood pressure 88 mm[Hg] MALATHI DEB [facility] 02-04-2023 09:08-0500 Mean blood pressure 121 mm[Hg] MALATHI DEB [facility] 02-04-2023 09:08-0500 Systolic blood pressure 188 mm[Hg] MALATHI DEB [facility] 02-04-2023 09:08-0500 Respiratory rate 20 /min MALATHI DEB [facility] 02-04-2023 09:08-0500 Body temperature 97.7 [degF] MALATHI DEB [facility] 02-03-2023 09:15-0500 Heart rate 77 /min MALATHI DEB [facility] 02-03-2023 09:15-0500 SaO2% (BldA) [Mass fraction] 97 % MALATHI DEB [facility] 02-03-2023 09:14-0500 Respiratory rate 18 /min MALATHI DEB [facility] 02-03-2023 09:14-0500 Diastolic blood pressure 97 mm[Hg] MALATHI DEB [facility] 02-03-2023 09:14-0500 Mean blood pressure 130 mm[Hg] MALATHI DEB [facility] 02-03-2023 09:14-0500 Systolic blood pressure 197 mm[Hg] MALATHI DEB [facility] 02-03-2023 09:13-0500 Body temperature 98.06 [degF] MALATHI DEB [facility] 02-02-2023 09:10-0500 Heart rate 75 /min MALATHI DEB [facility] 02-02-2023 09:10-0500 SaO2% (BldA) [Mass fraction] 93 % MALATHI DEB [facility] 02-02-2023 09:09-0500 Respiratory rate 20 /min MALATHI DEB [facility] 02-02-2023 09:08-0500 Diastolic blood pressure 87 mm[Hg] MALATHI DEB [facility] 02-02-2023 09:08-0500 Mean blood pressure 123 mm[Hg] MALATHI DEB [facility] 02-02-2023 09:08-0500 Systolic blood pressure 194 mm[Hg] MALATHI DEB [facility] 02-02-2023 09:08-0500 Body temperature 97.7 [degF] MALATHI DEB [facility] 02-01-2023 09:50-0500 Heart rate 77 /min MALATHI DEB [facility] 02-01-2023 09:50-0500 Mean blood pressure 115 mm[Hg] MALATHI DEB [facility] 02-01-2023 09:10-0500 Heart rate 84 /min MALATHI DEB [facility] 01-29-2023 11:26-0500 Heart rate 75 /min MALATHI DEB [facility] 01-29-2023 11:26-0500 SaO2% (BldA) [Mass fraction] 95 % MALATHI DEB [facility] 01-29-2023 11:26-0500 Respiratory rate 16 /min MALATHI DEB [facility] 01-29-2023 11:25-0500 Diastolic blood pressure 83 mm[Hg] MALATHI DEB [facility] 01-29-2023 11:25-0500 Mean blood pressure 108 mm[Hg] MALATHI DEB [facility] 01-29-2023 11:25-0500 Systolic blood pressure 158 mm[Hg] MALATHI DEB [facility] 01-29-2023 11:25-0500 Body temperature 98.06 [degF] MALATHI DEB [facility] 01-29-2023 10:54-0500 Heart rate 74 /min MALATHI DEB [facility] 01-29-2023 10:54-0500 SaO2% (BldA) [Mass fraction] 97 % MALATHI DEB [facility] 01-29-2023 10:53-0500 Body temperature 97.52 [degF] MALATHI DEB [facility] 01-29-2023 10:53-0500 Diastolic blood pressure 84 mm[Hg] MALATHI DEB [facility] 01-29-2023 10:53-0500 Mean blood pressure 104 mm[Hg] MALATHI DEB [facility] 01-29-2023 10:53-0500 Systolic blood pressure 146 mm[Hg] MALATHI DEB [facility] 01-12-2023 13:30-0500 Body height 167.64 cm Hunter Brown Other [facility] Other 01-12-2023 13:30-0500 Body mass index (BMI) [Ratio] 22 kg/m2 Hunter Brown Other [facility] Other 01-12-2023 13:30-0500 Body weight 61.83 kg Hunter Brown Other [facility] Other 01-12-2023 13:30-0500 Diastolic blood pressure 60 mm[Hg] Hunter Brown Other [facility] Other 01-12-2023 13:30-0500 Systolic blood pressure 137 mm[Hg] Hunter Brown Other [facility] Other 01-05-2023 11:30-0500 Body height 167.64 cm Gypsy Mcmahon Other [facility] Other 01-05-2023 11:30-0500 Body mass index (BMI) [Ratio] 21.63 kg/m2 Gypsy Mcmahon Other [facility] Other 01-05-2023 11:30-0500 Body weight 60.78 kg Gypsy Mcmahon Other [facility] Other 01-05-2023 11:30-0500 Diastolic blood pressure 72 mm[Hg] Gypsy Mcmahon Other [facility] Other 01-05-2023 11:30-0500 Systolic blood pressure 162 mm[Hg] Gypsy Mcmahon Other [facility] Other 12-28-2022 13:30-0500 Body height 167.64 cm Malathi Velázquez Other [facility] Other 12-28-2022 13:30-0500 Body mass index (BMI) [Ratio] 19.98 kg/m2 Malathi Melania Other [facility] Other 12-28-2022 13:30-0500 Body weight 56.16 kg Malathi Swensonjareth Other [facility] Other 12-28-2022 13:30-0500 Diastolic blood pressure 78 mm[Hg] Malathi Melania Other [facility] Other 12-28-2022 13:30-0500 Systolic blood pressure 146 mm[Hg] Malathi Hoodinez Other [facility] Other 12-15-2022 11:15-0500 Body height 167.64 cm Gypsy Mcmahon Other [facility] Other 12-15-2022 11:15-0500 Body mass index (BMI) [Ratio] 21.53 kg/m2 Gypsy Mcmahon Other [facility] Other 12-15-2022 11:15-0500 Body weight 60.51 kg Gypsy Mcmahon Other [facility] Other 12-15-2022 11:15-0500 Diastolic blood pressure 73 mm[Hg] Gypsy Mcmahon Other [facility] Other 12-15-2022 11:15-0500 Systolic blood pressure 178 mm[Hg] Gypsy Mcmahon Other [facility] Other 09-22-2022 14:14-0400 Blood Pressure Location MALATHI VIEIRA [facility] 09-22-2022 14:14-0400 Diastolic blood pressure 90 mm[Hg] MALATHI VIEIRA [facility] 09-22-2022 14:14-0400 Heart rate 78 /min MALATHI VIEIRA [facility] 09-22-2022 14:14-0400 Systolic blood pressure 142 mm[Hg] MALATHI VIEIRA [facility] 09-01-2022 14:15-0400 Body height 167.64 cm Gypsy Mcmahon Other [facility] Other 09-01-2022 14:15-0400 Body mass index (BMI) [Ratio] 21.14 kg/m2 Gypsy Mcmahon Other [facility] Other 09-01-2022 14:15-0400 Body weight 59.42 kg Gypsy Mcmahon Other [facility] Other 09-01-2022 14:15-0400 Diastolic blood pressure 56 mm[Hg] Gypsy Mcmahon Other [facility] Other 09-01-2022 14:15-0400 Systolic blood pressure 132 mm[Hg] Gypsy Mcmahon Other [facility] Other 06-09-2022 13:42-0400 Diastolic blood pressure 71 mm[Hg] Marvin KWON [facility] 06-09-2022 13:42-0400 Heart rate 59 /min Marvin KWON [facility] 06-09-2022 13:42-0400 Systolic blood pressure 183 mm[Hg] Marvin KWON [facility] 04-24-2022 11:30-0400 Body height 167.64 cm Hunter Manny Other [facility] Other 04-24-2022 11:30-0400 Body mass index (BMI) [Ratio] 22.11 kg/m2 Hunter Manny Other [facility] Other 04-24-2022 11:30-0400 Body weight 62.14 kg Hunter Manny Other [facility] Other 04-24-2022 11:30-0400 Diastolic blood pressure 70 mm[Hg] Hunter Manny Other [facility] Other 04-24-2022 11:30-0400 Systolic blood pressure 159 mm[Hg] Hunter Manny Other [facility] Other 04-07-2022 14:15-0500 Body height 167.64 cm Gypsy Mcmahon Other [facility] Other 04-07-2022 14:15-0500 Body mass index (BMI) [Ratio] 21.79 kg/m2 Gypsy Mcmahon Other [facility] Other 04-07-2022 14:15-0500 Body weight 61.24 kg Gypsy Mcmahon Other [facility] Other 04-07-2022 14:15-0500 Diastolic blood pressure 62 mm[Hg] Gypsy Mcmahon Other [facility] Other 04-07-2022 14:15-0500 Systolic blood pressure 130 mm[Hg] Gypsy Mcmahon Other [facility] Other 03-11-2022 13:35-0500 Body temperature 97.5 [degF] MD Gypsy Mcmahon Work Phone: [facility] 03-11-2022 13:35-0500 Diastolic blood pressure 61 mm[Hg] MD Gypsy Mcmahon Work Phone: [facility] 03-11-2022 13:35-0500 Heart rate 60 /min MD Gypsy Mcmahon Work Phone: [facility] 03-11-2022 13:35-0500 Respiratory rate 18 /min MD Gypsy Mcmahon Work Phone: [facility] 03-11-2022 13:35-0500 SaO2% (BldA) [Mass fraction] 96 % MD Gypsy Mcmahon Work Phone: [facility] 03-11-2022 13:35-0500 Systolic blood pressure 135 mm[Hg] MD Gypsy Mcmahon Work Phone: [facility] 02-16-2022 10:45-0500 Body height 167.64 cm Gypsy Mcmahon Other [facility] Other 02-16-2022 10:45-0500 Body mass index (BMI) [Ratio] 21.46 kg/m2 Gypsy Mcmahon Other [facility] Other 02-16-2022 10:45-0500 Body weight 60.33 kg Gypsy Mcmahon Other [facility] Other 02-16-2022 10:45-0500 Diastolic blood pressure 70 mm[Hg] Gypsy Mcmahon Other [facility] Other 02-16-2022 10:45-0500 Systolic blood pressure 120 mm[Hg] Gypsy Mcmahon Other [facility] [employer] Other 02-11-2022 12:00-0500 Body height 172.72 cm Hunter Brown Other [facility] Other 02-11-2022 12:00-0500 Body mass index (BMI) [Ratio] 20.83 kg/m2 Hunter Brown Other [facility] Other 02-11-2022 12:00-0500 Body weight 62.14 kg Hunter Brown Other [facility] Other 02-11-2022 12:00-0500 Diastolic blood pressure 68 mm[Hg] Hunter Brown Other [facility] Other 02-11-2022 12:00-0500 Systolic blood pressure 144 mm[Hg] Hunter Brown Other [facility] Other 01-05-2022 10:30-0500 Body height 172.72 cm Hunter Brown Other [facility] Other 01-05-2022 10:30-0500 Body mass index (BMI) [Ratio] 22.04 kg/m2 Hunter Brown Other [facility] Other 01-05-2022 10:30-0500 Body weight 65.77 kg Hunter Brown Other [facility] Other 01-05-2022 10:30-0500 Diastolic blood pressure 78 mm[Hg] Hunter Brown Other [facility] Other 01-05-2022 10:30-0500 Systolic blood pressure 166 mm[Hg] Hunter Brown Other [facility] Other 03-27-2021 12:00-0500 Body height 172.72 cm Giana Griffiths Other [facility] Other 03-27-2021 12:00-0500 Body mass index (BMI) [Ratio] 22.96 kg/m2 Giana Griffiths Other [facility] Other 03-27-2021 12:00-0500 Body weight 68.49 kg Giana Griffiths Other [facility] Other 01-27-2021 10:45-0500 Body height 172.72 cm Giana Griffiths Other [facility] Other 01-27-2021 10:45-0500 Body mass index (BMI) [Ratio] 24.48 kg/m2 Giana Griffiths Other [facility] Other 01-27-2021 10:45-0500 Body weight 73.03 kg Giana Griffiths Other [facility] Other Functional Status Date Assessment Result Facility 01-26-2023 Functional Status N/A [facility] 09-22-2022 Functional Status N/A [facility] 06-09-2022 Functional Status N/A [facility] 05-19-2022 Functional Status N/A [facility] Clinical Notes 01-27-2021 to 03-12-2023 Note Date & Type Note Facility 03-12-2023 Evaluation note Encounter Date Diagnosis Assessment Notes Mar, 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 Preventative measures were discussed. Vitamin C vmxt-stc-[id number] recommended as well as topical Thera workx [...] n due to immunosuppression (ICD-10 - Z91.89) [facility] Other 01-09-2024 Evaluation note* Encounter Date Diagnosis [...] pain. Feb, Pain, unspecified (ICD-10 - R52) [facility] Other [id number] Hospital Discharge instructions Patient Education 01/26/2023 16:05:17 Urinary Tract Infection, Adult, Gcai-kx-Qras Urinary Tract Infection, Adult A urinary tract [...] Follow these instructions at home: Medicines Take uvlo-drw-rhksmfq and prescription medicines only as told by [...] provider. Document Revised: 09/06/2020 Document Reviewed: 09/06/2020 [employer] Patient Education 2022 [employer]. Follow Up Care 06/09/2022 14:50:19 With:MALATHI VIEIRA PA-C, URL Address: [address] [place] [address] [phone] When: Unknown Comments:f/u in [place] [facility] 12-13-2023 Evaluation note* Encounter Date Diagnosis Assessment Notes Treatment Notes Treatment Clinical Notes Jan, Diarrhea (ICD-10 - R19.7) [facility] Other 12-05-2023 Evaluation note* Encounter Date Diagnosis [...] a day, we will re-test for C-diff [facility] Other 11-28-2023 Evaluation note* Encounter Date Diagnosis Assessment Notes Treatment Notes Treatment Clinical Notes Dec, Clostridium difficile colitis (ICD-10 - A04.72) Finish meds as prescribed. (vern, Rosalio) Followup w Dr. Brown as scheduled. Understands the c diff could recur. Followup as needed Discussed good nutrition and healthy diet. [facility] Other 11-20-2023 Evaluation note* Encounter Date Diagnosis [...] Pt understands and agrees with the plan. [facility] Other 11-07-2023 Evaluation note* Encounter Date Diagnosis Assessment Notes Treatment Notes Treatment Clinical Notes Dec, Frequent UTI (ICD-10 - N39.0) [facility] Other 11-07-2023 Evaluation note* Encounter Date Diagnosis [...] w Dr. Licea today. Consider PT at [facility] or the [place]. [facility] [...] veins Hypertension - Uncon (more content not included)...[facility]08-15-2023 Hospital Discharge instructions Patient Education 09/22/2022 15:32:53 Urinary Tract Infection, Adult, Psnr-bo-Xkaw Urinary Tract Infection, Adult A urinary tract [...] Follow these instructions at home: Medicines Take nnmh-dti-wnsrvrh and prescription medicines only as told by [...] provider. Document Revised: 09/06/2020 Document Reviewed: 09/06/2020 [employer] Patient Education 2022 [employer]. Follow Up Care 09/22/2022 10:38:22 With:DEB ZAZUETA, MALATHI Olvera, URL Address: [address] [place] [address] [facility] [place] [address] When: Unknown [facility] 08-03-2023 Evaluation note* Encounter Date Diagnosis Assessment Notes Treatment Notes Treatment Clinical Notes Sep, Dysuria (ICD-10 - R30.0) [facility] Other 08-01-2023 Evaluation note* Encounter Date Diagnosis Assessment Notes Treatment Notes Treatment Clinical Notes Sep, Microscopic colitis, unspecified microscopic colitis type (ICD-10 - K52.839) [facility] Other 07-25-2023 Evaluation note* Encounter Date Diagnosis Assessment Notes Treatment Notes Treatment Clinical Notes Aug, Frequent UTI (ICD-10 - N39.0) Continue estrogen cream. Review with Urology on her followup appt. Discussed causes of UTIs Aug, Lymphocytic colitis (ICD-10 - K52.832) Improved with GI at [facility]. 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 Barry. Reviewed medications and explained their purpose. [facility] Other 07-20-2023 Evaluation note* Encounter Date Diagnosis Assessment Notes Treatment Notes Treatment Clinical Notes Aug, Recurrent UTI (ICD-10 - N39.0) [facility] Other 05-23-2023 [facility] Note Chief Complaint: [...] asked her to discuss this with her industrial design engineer. Depending on the risk-benefit ratio will consider starting 1 or the other. She is on Zocor which is not ideal. If her cholesterol is not controlled, would suggest switching her to 40 mg of Lipitor or 20 mg of Crestor. Follow-up in 6 months or sooner should problems arise or her stress test revealed ischemia Jake Barry MD, MPH, [facility], [facility], [facility] Interventional Cardiology Pager Email: [email or web address] Hospital Discharge instructions Patient Education 06/09/2022 14:15:56 Urinary Tract Infection, Adult, Tufx-ea-Nhxo Urinary Tract Infection, Adult A urinary tract [...] Follow these instructions at home: Medicines Take fhqo-mue-opuvqkf and prescription medicines only as told by [...] provider. Document Revised: 09/06/2020 Document Reviewed: 09/06/2020 [employer] Patient Education 2022 [employer]. Follow Up Care 06/01/2022 10:03:13 With:CHER KRISHNAN, Marvin Camacho, URL Address: [facility] [address] , [place] [address] [phone] When:10/10/2022 [facility] 04-11-2023 Hospital Discharge instructions Patient Education 05/19/2022 14:16:45 [...] Treatment for this condition includes: Antibiotic medicine. Ptjr-pvi-mcopsnr medicines to treat discomfort. Drinking enough water [...] Follow these instructions at home: Medicines Take vdqi-qzr-ccqhkpc and prescription medicines only as told by [...] 11/04/2005 Document Revised: 01/12/2019 Document Reviewed: 08/04/2018 [employer] Patient Education 2020 [employer]. Follow Up Care 04/20/2022 10:50:51 With:DEB ZAZUETA, MALATHI Olvera, URL Address: [address] [place] [address] [facility] [place] [address] When: Unknown [facility] 04-06-2023 Evaluation note* Encounter Date Diagnosis Assessment Notes Treatment Notes Treatment Clinical Notes May, Frequent UTI (ICD-10 - N39.0) [facility] Other 03-24-2023 Evaluation note* Encounter Date Diagnosis [...] back this morning. antibiotic at her pharmacy. [facility] Other 03-17-2023 Evaluation note* Encounter Date Diagnosis Assessment Notes Treatment Notes Treatment Clinical Notes Apr, Lymphocytic colitis (ICD-10 - K52.832) Continue Entyvio as directed Continue Lotronex 0.5 mg 1/2 tablet daily Rto 4 months [facility] Other 03-09-2023 Evaluation note* Encounter Date Diagnosis Assessment Notes Treatment Notes Treatment Clinical Notes Apr, Acute cystitis without hematuria (ICD-10 - N30.00) [facility] Other 02-28-2023 Evaluation note* Encounter Date Diagnosis Assessment Notes Treatment Notes Treatment Clinical Notes Mar, Recurrent UTI (ICD-10 - N39.0) Discussed options. Will try estrogen cream for vaginal health. Denies personal history of female cancers. Will also set up w Urology Mar, Colitis (ICD-10 - K52.9) Further treatment with Dr. Brown w appt on 04/24 [facility] Other 02-20-2023 Evaluation note* Encounter Date Diagnosis Assessment Notes Treatment Notes Treatment Clinical Notes Mar, Dysuria (ICD-10 - R30.0) [facility] Other 01-09-2023 Evaluation note* Encounter Date Diagnosis Assessment Notes Treatment Notes Treatment Clinical Notes Feb, Acute cystitis without hematuria (ICD-10 - N30.00) Sent to [facility] for urine culture - will treat based on results. Feb, Encounter for immunization (ICD-10 - Z23) Feb, Microscopic colitis, unspecified microscopic colitis type (ICD-10 - K52.839) Keep appt w Dr. Brown. Discussed boost or other supplement to gain weight Feb, Gastric ulcer (ICD-10 - K25.9) Encouraged her to continue pantoprazole [facility] Other 01-04-2023 Evaluation note* Encounter Date Diagnosis Assessment Notes Treatment Notes Treatment Clinical Notes Feb, Lymphocytic colitis (ICD-10 - K52.832) Start Entyvio infusions every 8 weeks Continue Budesonide, Alosetron, Imodium, and Pepto for now until starting Entyvio. Pt to keep record of bowel movements - how many and consistency Follow up in 2 months Feb, Fecal incontinence (ICD-10 - R15.9) [facility] Other 11-28-2022 Evaluation note* Encounter Date Diagnosis [...] Pantoprazole as prescribed Okay to stop Sucralfate [facility] Other 09-25-2022 NoteOPERATIVE NOTE OPERATION DATE: 11/04/2021 [...] was taken to PACU in good condition.[facility] 03-27-2021 Evaluation note* Encounter Date Diagnosis Assessment Notes Treatment Notes Treatment Clinical Notes Mar, Microscopic colitis, unspecified microscopic colitis type (ICD-10 - K52.839) INCREASE COLESTIPOL TO 4 TABS AT LUNCHTIME DAILY IF NOT IMPROVED ON HIGHER DOSE PT TO CALL ON 03/31 FOR ALTERNATIVE PLAN Mar, Irritable bowel syndrome with diarrhea (ICD-10 - K58.0) [employer] [facility] Other 12-20-2021 Evaluation note* Encounter Date Diagnosis Assessment Notes Treatment Notes Treatment Clinical Notes Jan, Microscopic colitis, unspecified microscopic colitis type (ICD-10 - K52.839) START COLESIPOL 2 PO DAILY CONTINUE BUDESONIDE WITHOUT CHANGE 3 PO Q AM AND MAYBE CONSIDERING STOP THIS IF COLESTIPOL IS WORKING ENOUGH TO CONTROL HER SYMPTOMS [employer] [facility] Other 12-20-2021 Evaluation note* Encounter Date Diagnosis Assessment Notes Treatment Notes Treatment Clinical Notes Jan, Microscopic colitis, unspecified microscopic colitis type (ICD-10 - K52.839) [facility] Other Evaluation + Plan note No data available for this section [facility] evaluation + Plan note Future Appointments Appointment Date:10/27/2022 01:00:00 PM Scheduled Provider:MALATHI VIEIRA PA-C Location:[facility] Appointment Type:URO Office Visit [facility] Evaluation + Plan note Future Appointments Appointment Date:12/29/2022 01:00:00 PM Scheduled Provider:MALATHI VIEIRA PA-C Location:[facility] Appointment Type:URO Office Visit [facility] evaluation + Plan note Future Appointments Appointment Date:06/15/2023 02:00:00 PM Scheduled Provider:MALATHI VIEIRA PA-C Location:[facility] Appointment Type:URO Office Visit [facility] evaluation + Plan note Future Appointments Appointment Date:01/30/2023 10:30:00 AM Scheduled Provider: Location:[facility] Appointment Type:ASU IV Antibiotic (FT) Appointment Date:01/31/2023 10:30:00 AM Scheduled Provider: Location:[facility] Appointment Type:ASU IV Antibiotic (FT) Appointment Date:02/01/2023 10:30:00 AM Scheduled Provider: Location[facility] Appointment Type:ASU IV Antibiotic (FT) Appointment Date:02/02/2023 10:30:00 AM Scheduled Provider: Location:[facility] Appointment Type:ASU IV Antibiotic (FT) Appointment Date:02/03/2023 10:30:00 AM Scheduled Provider: Location:[facility] Appointment Type:ASU IV Antibiotic (FT) Appointment Date:02/04/2023 10:30:00 AM Scheduled Provider: [facility] Appointment Type:ASU IV Antibiotic (FT) Appointment Date:06/15/2023 02:00:00 PM Scheduled Provider:MALATHI VIEIRA PA-C Location:[facility]No InformationN[facility] [employer] Other Evaluation noteNo assessment information available [facility] Work Phone: Evaluation note* Diagnosis Onset Date Resolution Status Recurrent Clostridioides difficile diarrhea acute [facility] Work Phone: Evaluation note* Diagnosis Onset Date Resolution Status Recurrent Clostridioides difficile diarrhea acute Diarrhea acute Microscopic colitis acute Recurrent Clostridioides difficile diarrhea acute Recurrent UTI acute [facility] Work Phone: [facility] general Narrative - Reported* Type Description Date Medical History HTN Medical History hyperlipidemia Medical History microscopic colitis Surgical History T&A Surgical History Quad by-pass Surgical History total hysterectomy Surgical History gall bladder Surgical History Cataracts Surgical History Right Knee Scope Surgical History Sphincterectomy Surgical History Left Rotator Scope Surgical History Hernia Repair 03/24/2012 Hospitalization History See Surgical Hx [facility] Narrative - Reported* Type Description Date [...] Hospitalization History See Surgical Hx Hospitalization History [facility] 12/2022 [facility] Narrative - Reported* Type Description Date [...] Hospitalization History See Surgical Hx Hospitalization History [facility] 12/2022 [facility] Narrative - Reported* Type Description Date [...] Hospitalization History See Surgical Hx Hospitalization History [facility] 12/2022 [facility] Narrative - Reported* Type Description Date [...] Hospitalization History See Surgical Hx Hospitalization History [facility] 12/2022 [facility] Other Hospital Discharge instructions No data available for this section [facility] data available for this section [facility] Summary Purpose Family History No Family History [...] November 22, 2017 10:57am Hospital Course Note [facility] 2SOUT Clinical Discharge Summary PERSON INFORMATION Name DELICIA HSU Age 83 Years 1935 Sex FEMALE Language Indian PCP Lisandro KRISHNAN, Gypsy Olvera Marital Status Med Service Med/Surg Acct# Arrival 09/25/2019 06:52:00 Visit Reason SURGERY - LEFT TOTAL HIP Acuity LOS Address: [address] [place] [address] Comment: PROVIDER INFORMATION VITALS INFORMATION Vital Sign [...] for Visit Recurrent Clostridio ides difficile diarrhea Chief Complaint 2 MONTH diarrhea follow up Patient here for a 1 month f/u R19.7 Reason for Visit Recurrent Clostridio ides difficile diarrhea Diarrhea Microscopic colitis Recurrent Clostridioides difficile diarrhea Recurrent UTI Reason for Referral Reason DUPLICATE [place] office - frequent UTIs. Diagnosis 1 Frequent UTI (N39.0) Referral Organization [facility] Referring Provider First Name Gypsy Referring Provider Last Name Lisandro Referring Provider [facility] Referred Provider Beau Hernandez Referred Address [address],[place],[address] Referred Provider Specialty Urology Referral Priority Routine General Notes Tatyana Bojorquez 01:56:52 PM >received today Tatyana Bojorquez 05/14/2022 02:02:41 PM >attachments made, notes locked, referral faxed Tatyana Bojorquez 05/14/2022 03:25:50 PM >DUPLICATE REFERRAL Reason *FU 04/28 [place] office - recurrent UTIs. Diagnosis 1 Recurrent UTI (N39.0 ) Referral Organization [facility] [employer] jah Referring Provider First Name Gypsy Referring Provider Last Name Lisandro Referring Provider [facility] Referred Provider Gerson Juárez Referred Address [address],[place],[address] Referred Provider Specialty Urology Referral Priority Routine General Notes Tatyana Bojorquez 03:40:45 PM >received today, attachments made, waiting for notes to be locked Tatyana Bojorquez 04/10/2022 08:38:22 AM >notes locked, referral faxed Tatyana Bojorquez 04/20/2022 07:51:15 AM >faxed first attempt letter Eyalyun Tatyana 04/21/2022 07:46:20 AM >received fax that referral was never received. refaxed at this time. Additional Source Comments INFORMATION SOURCE (unrecogn ized section and content) DATE CREATED AUTHOR 09/17/2018 [facility] DATE CREATED AUTHOR AUTHOR'S ORGANIZ ATION 10/30/2019 [facility] DATE CREATED AUTHOR AUTHOR'S ORGANIZ ATION 05/31/2022 [facility] DATE CREATED AUTHOR AUTHOR'S ORGANIZ ATION 11/15/2022 [facility] DATE CREATED AUTHOR AUTHOR'S ORGANIZ ATION 05/30/[address] [facility] DATE CREATED AUTHOR AUTHOR'S ORGANIZ ATION 06/17/2023 [facility] DATE CREATED AUTHOR AUTHOR'S ORGANIZ ATION 06/19/2023 [facility] DATE CREATED AUTHOR AUTHOR'S ORGANIZ ATION 06/26/2023 [facility] REASON FOR VISIT (unrecogniz ed section [...] on alosetron, Patient was recently inpatient at [facility] and was diagnosed with gastric ulcerPRESCRIPTIONPATIENT HERE FOR 1 MONTH FOLLOW UP LYMPHOCYTIC COLITIS.No InformationEntyvioCheck upREFILLUANo Informationurine cultureDISCUSSIONurine culturereferralPATIENT HERE FOR 2 MONTH FOLLOW UPupset stomach, vomiting and diarrheautiurine culturerefillmedication discussREFILLSUA-ConfusionRefillTBHNot Feeling WellUpdateTCMemorial [facility] follow uprecent admissionPatient here for 3 month follow upClinicalC.DiffLegsdizzyNo InformationNo InformationNo Information Care Teams (unrecognized sec tion and content) Team Status: Active Member Role Status Dates Gypsy Mcmahon MD Primary Care Provider Active Team Status: Active Member Role Status Dates Gypsy E Mcmahon , MD Primary Care Provide r, Attending Provider [...] May 05, 2023 End: May 05, 2023 Team Status: Active Member Role Status Valdemar Mcmahon MD Primary Care Provide r, Attending Provider Active Start: May 06, 2023 Team Status: Inactive Member Role Status Valdemar Mcmahon MD Primary Care Provider Active Start: May 21, 2023 End: May 21, 2023 Monie Wallace , Attending Provider Active St art: May 21, 2023 End: May 21, 2023 Team Status: Inactive Member Role Status Valdemar Mcmahon MD Primary Care Provider Active Start: May 24, 2023 End: May 24, 2023 Jacinto Max MD Attending Provider Active Sta rt: May 24, 2023 End: May 24, 2023 Team Status: Active Member Role Status Valdemar Mcamhon MD Primary Care Provide r, Attending Provider Active Start: May 25, 2023 Team Status: Inactive Member Role Status Valdemar Mcmahon MD Primary Care Provider Active Start: May 28, 2023 End: May 28, 2023 Monie L Ly , DO Attending Provider Active St art: May 28, 2023 End: May 28, 2023 Team Status: Inactive Member Role Status Valdemar Mcmahon MD Attending Provider Active Team Status: Inactive Member Role Status Valdemar Mcmahon MD Primary Care Provider, Attending Leonarda griffiths Active Team Status: Active Member Role Status Valdemar Mcmahon MD Primary Care Provider Active Hunter Brown MD Attending Provider Active Team Status: Inactive Member Role Status Valdemar Mcmahon MD Attending Provider Active St art: December 15, 2022 End: December 15, 2022 Team Status: Inactive Member Role Status Dates Malathi Velázquez APRN HEALTH CARE FACILITIES INSPECTOR-C Attending Provider Act jamar Start: December 28, 2022 End: December 28, [...] February 26, 2023 End: February 26, 2023 Goals (unrecognized section and content) Goals [...] BE BASED ON THE PRIMARY CLINICAL RECORDS. [employer] provides no warranty or guarantee of the accuracy or completeness of information in this document.
[2023-07-23 21:37] LABS: Bilirubin Urine NEGATIVE (NEGATIVE); Blood Urine NEGATIVE (NEGATIVE); Clarity Urine CLEAR (CLEAR); Color Urine LT. YELLOW (YELLOW); Glucose Urine UA NEGATIVE (NEGATIVE); Ketones Urine NEGATIVE (NEGATIVE); Leukocyte Esterase Urine SMALL (NEGATIVE); Nitrite Urine NEGATIVE (NEGATIVE); Protein Urine NEGATIVE (NEG/TRACE); Specific Gravity Urine 1.025 (1.005-1.025); Urobilinogen Urine 0.2 EU/dL (0.2-1.0)
== END 2023-07-23 21:26 | disposition home or self-care (01) ==
PROVIDERS: PCP Family Medicine; Visit Provider Physician Assistant
DX: N39.0 Urinary tract infection, site not specified (principal)
CPT/HCPCS: 81003; 87086; 87150; 87186

== ENCOUNTER 2023-07-25 18:33 | Emergency (ER) | payer MEDICARE, BC, SELFPAY ==
[2023-07-25] VITALS (12 sets, daily range): BP systolic 163–191; BP diastolic 58–97; PULSE 71; TEMP 36.7; O2SAT 80–99; BMI 24.9
--- OUTSIDE RECORDS SUMMARY | 2023-07-25 18:40 | XMS_ITS | CCD ---
Author Organization [facility] Inform ion Partnership [facility] Care Team Providers Care Dairy Grazer Name Role Phone Giana Griffiths Unavailable Hunter Brown Unavailable [phone] MD Gypsy Mcmahon Primary Care Provider [phone] MD Gypsy Mcmahon Attending Provider MD Hunter Brown Attending Provider [phone] Gypsy Mcmahon Unavailable GYPSY MCMAHON Primary Care Physician DR GYPSY MCMAHON Admitting Unavailable LISANDRO, DR GYPSY Olvera Consulting Unavailable LISANDRO, DR GYPSY Olvera Attending Unavailable MCMAHON, DR GYPSY Olvera Primary Care Unavailable VLAENTINA, DR REY Bustamante Attending Unavailjhonatan MONTGOMERY, DR REY Bustamante Consulting Unavailjhonatan MONTGOMERY, DR REY Bustamante Admitting Unavailjhonatan e LISANDRO, DR GYPSY Olvera Primary Care Unavailable ÁNGELADARRION ., TIFFANIE VALLES Consulting Unavailjhonatan e LISANDRO, DR GYPSY Olvera Admitting Unavailable MCMAHON, DR GYPSY Olvera Attending Unavailable LISANDRO, DR GYPSY Olvera Primary Care Unavailable LISANDRO, DR GYPSY Olvera Consulting Unavailable LISANDRO, DR GYPSY Olvera Primary Care [...] D Admitting Unavailable MCMAHON, DR GYPSY Olvera Admitting [...] Consulting Unavailable SAMSA ., KANDI Consulting Unavailable YAKELIN, HERNANDO Consulting Unavailable FAWWAD, MCCORD H Consulting Unavailable GIANA HOLLY Consulting Unavailable KIM ., KATIE HOWELL Consulting Unavailable JUNGERMANN, EJNNIFER Consulting Unavailable GEMBUS, ROBERT Consulting Unavailable PATRICIA, ANG Consulting Unavailable HIGHLANDER, CLAU Shrestha Attending Unavailable HIGHLANDER, PETER D Admitting Unavailable MCMAHON, DR GYPSY Olvera Primary Care Unavailable Jose G Ellington Unavailable ELTAHAWY, EHAB Attending Unavailable ELTAHAWY, EHAB Attending Unavailable Malathi Velázquez Unavailable [phone] MD Jacinto Max Attending Provider [phone] MD Jacinto Max Referring Provider MD Gypsy Mcmahon Primary Care Provider Jacinto Max Unavailable MD Jacinto Max Attending Provider MD Jacinto Max Referring Provider MD Gypsy Mcmahon Primary Care Provider [phone] Tutiffanie, DO Marvin Yancey Emergency Provider MD Gypsy Mcmahon Primary Care Provider Ly, DO Monie Gastelum Attending Provider Jacinto Max Admitting Unavailable Winter, Jacinto Attending Unavailable Winter, Jacinto Referring Unavailable Gypsy Mcmahon Primary Care Unavailable Ly, Monie Gastelum Attending Unavailable Ly, Monie Gastelum Admitting Unavailable Mcmahon, Gypsy E Primary Care Unavailable Tupa, Marvin Yancey Admitting Unavailable Tupa, Marvin Yancey Attending Unavailable Mcmahon, Gypsy E Primary Care Unavailable Hunter Brown Admitting UnavailHunter Grimes Attending Unavailabl e Mcmahon, Gypsy E Primary Care Unavailable DEB, MALATHI Olvera Attending Unavailable DEB, MALATHI E Attending Unavailable DEB, MALATHI E Referring Unavailable DEB, MALATHI E Admitting Unavailable DEB, MALATHI Olvera Attending Unavailable DEB, MALATHI Olvera Attending Unavailable ROYAL, MOHAMED F Attending Unavailable MCMAHON, GYPSY E Referring Unavailable MCMAHON, GYPSY E Primary Care Unavailable ROYAL, MOHAMED F Attending Unavailable ROYAL, MOHAMED F Referring Unavailable MCMAHON, GYPSY E Primary Care Unavailable Allergies Allergy Classification Reported Allergen(s) Allergy Type Date of Onset Reaction(s) Facility (20 sources) Promethazine; 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: [promethazine] Drug Allergy 02-04-20 13 anaphylaxis, Anaphylaxis (disorder) [facility] (20 sources) histamines Drug allergy Unknown [facility] Other (9 sources) Histamine H2 Inhibitors; 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: [Histamine H2 Inhibitors] Allergy to substance 07-16-19 13 Unknown Reaction [facility] (20 sources) levoFLOXacin; 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: [levofloxacin] Drug Allergy 07-01-19 23 Tremor (finding) [facility] (1 source) diphenhydrAMINE Drug Allergy 04-20-19 [facility] (1 source) ezetimibe Drug Allergy 04-20-19 [facility] (1 source) Gemfibrozil Drug Allergy 04-20-19 [facility] (2 sources) Levamisole; 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: [Phenergan] Drug Allergy 07-16-19 13 [facility] (1 source) NSAIDs Drug allergy (disorder) 04-20-19 [facility] (1 source) Nasal Decongestant Drug allergy (disorder) 04-20-19 [facility] (1 source) Darvocet-N 100 Drug allergy (disorder) 04-20-19 [facility] (11 sources) diphenhydrAMINE; 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: [diphenhydramine] Drug Allergy jumpy,, Unknown [facility] (14 sources) Penicillin; 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: [penicillin] Drug Allergy Eruption of skin (disorder) [facility] (1 source) Histamine; 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: [HISTAMINE] Drug Allergy 02-04-20 13 [facility] Repository (4 sources) Penicillins; 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: [Penicillins] Propensity to adverse reactions 02-25-19 Rash [facility] (2 sources) Antihistamines Allergy to substance 02-26-19 Unknown Reaction [facility] (1 source) Promethazine Drug Allergy 12-07-19 18 [facility] Repository Medications Current Medications Medication [...] capsule (2 sources) Start: 04-15-2023 lactobacillus acidophilus [id number] unt oral tablet (2 sources) take 1 [...] tablet (8 sources) Nitroimidazole Antimicrobial Start: 08-19-19 take 1 tablet by mouth every twelve hours metroNIDAZOLE 500 MG 1 tablet Orally bid for 7 day(s) Aug, Active take 1 tablet by mouth every six hours metroNIDAZOLE 500 MG 1 tablet 4 times a day Active Multi For Her - (20 sources) Multi For Her - as directed Orally Active Multivitamin (Daily Multi-Vitamin) tablet (2 sources) Start: 04-15-19 take 1 tablet by mouth once daily Multivitamin (Daily Multi-Vitamin) tablet Active 1 TAB PO Daily April 15, 2023 1:00am Multivitamin preparation (7 sources) Start: 05-20-19 multivitamin Daily, Refill(s) 0 [...] daily Pantoprazole Active 20 MG PO Daily 30 May 21, 2023 12:00am Start: 05-14-2022 End: [...] oral capsule (1 source) Tetracycline-class Drug Start: 04-24-2023 take 1 capsule by mouth once daily doxycycline hyclate 100 mg Cap 100 mg = 1 cap(s), Oral, Daily, Take 1 pill the day before the procedure and 1 pill after the procedure, # 2 cap(s), Refills(s) 0, Pharmacy: [facility]/pharmacy #[id number], 178, cm, 05/19/22 13:31:00 EDT, [...] Start: 01-26-2023 take 1 capsule by mo [facility] every twenty-four hours Vancomycin HCl 250 MG [...] disease (20 sources) Atherosclerotic heart disease of [place] coronary artery without angina pectoris; 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: [Coronary [...] 02-04-2022 Chronic Other aftercare (1 source) 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; 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: [OTH SENIOR CARE CURRENT DRUG THERAPY] Onset: 03-24-2022 Episodic Other [...] and visceral atherosclerosis (16 sources) 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; 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: [Atherosclerosis of [place] arteries of left leg with ulceration of [...] Onset: 11-02-2021 Episodic Other aftercare (1 source) 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; 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: [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] Onset: 11-10-2021 Episodic [...] nitrogen [Mass/Vol] 16 mg/dL Normal 7-25 [facility] Comment on above: Order Comment: STAT FOR CT Performed By: #### B ANNE MARIE SHARMA #### [address] abdomen pelvis w conon CT abdomen pelvis w [facility] [place] [address] [place] [address] CT Scan Report Signed Patient: Delicia Hsu MR#: [id number] 4 : 1935 Acct:[id number] Age/Sex: 87 / F ADM Date: 05/28/23 Loc: CT Room: Type: [facility] Attending Dr: Monie Wallace DO Copies [...] Yen Jr., D.O.05/28/2023 1:34 PM Dictation Location: [place] [address] Transcribed By: [facility] 05/28/23 1334 Dictated By: Jm Yen Jr, DO 05/28/23 1331 Signed By: 05/28/23 1334 Normal [facility] Creatinineon 05-28-2023 Creatinine [Mass/Vol] 1.07 mg/dL Normal 0.60-1.20 [facility] Comment on above: Order Comment: STAT FOR CT Performed By: #### B UN, CREAT #### [facility] [address] [place] [id number] [place] GFR/1.73 sq M.predicted MDRD (S/P/Bld) [Vol rate/Area] 50.587 mL/min/{1.73_m2} Normal [facility] Comment on above: Order Comment: STAT FOR CT Result Comment: PERF ORMED BY: [place] [address] PATHOLOGIST RADIOPHONE OPERATOR TIEN VELASQUEZ M.D. Performed By: #### B UN, CREAT #### [facility] [address] Creatinine [Mass/volume] in Serum or PlasmaOrdered By: Monie Wallace on 05-28-2023 Creatinine [Mass/Vol] 1.07 mg/dL 0.60-1.20 [facility] No Panel InformationOrdered By: Monie Wallace on 05-28-2023 Estimated GFR (CKD-EPI) 50.587 mL/Min [facility] Creatinine Clearance (Chem N/A [facility] Urea nitrogen [Mass/volume] in Serum or PlasmaOrdered By: Monie Wallace on 05-28-2023 Urea nitrogen [Mass/Vol] 16 mg/dL 7-25 [facility] No Panel InformationOrdered By: Gypsy Mcmahon on 05-25-2023 E coli Shiga Toxin EIA Fi [facility] Salmonella/Shigella Screen [facility] IgA [Mass/volume] in Serum o r Plasmaon 05-24-2023 IgA [Mass/Vol] 64 mg/dL 64-422 [facility] Comment on above: Performed at: [facility] [address] [id number] Director: Salomon Mcarthur PhD, Phone: [phone] No Panel Informationon 05-23 Endomysial IgA Antibody Negative Negative [facility] Serum gliadin peptide IgA an tibody assay (units/volume)on 05-24-2023 Gliadin peptide IgA Qn (S) 4 units 0-19 [facility] Comment on above: Negative 0 - 19 Weak Positive 20 - 30 Moderate to Strong Positive >30 Serum gliadin peptide IgG an tibody assay (units/volume)on 05-24-2023 Gliadin peptide IgG Qn (S) 2 units 0-19 [facility] Comment on above: Negative 0 - 19 Weak Positive 20 - 30 Moderate to Strong Positive >30 Serum tissue transglutaminas e (tTG) IgA antibody assay (units/volume)on 05-24-2023 tTG IgA Qn (S) <2 U/mL 0-3 [facility] Comment on above: Negative 0 - 3 Weak Positive 4 - 10 Positive >10 Tissue Transglutaminase (tTG) has been identified as the endomysial antigen. Studies have demonstr- ated that endomysial IgA antibodies have over 99% specificity for gluten sensitive enteropathy. Serum tissue transglutaminas e (tTG) IgG antibody assay (units/volume)on 05-24-2023 tTG IgG Qn (S) <2 U/mL 0-5 [facility] Comment on above: Negative 0 - 5 Weak Positive 6 - 9 Positive >9 [facility] 05-10-2023 Lab Reports [id number]#1.00TIFF Normal [facility] Lab Reports [id number]#1.00TIFF Normal [facility] Lab Reports [id number]#1.00TIFF Normal [facility] Lab Report[facility] 05-07-2023 Lab Reports [id number]#1.00TIFF Normal [facility] Automated urine specific gra vity by refractometryon 05-06-2023 Specific gravity Refractometry automated (U) [Rel density] 1.025 1.005-1.02 5 [facility] Bilirubin Auto test strip (U ) [Mass/Vol]on 05-06-2023 Bilirubin (U) [Mass/Vol] Negative NEGATIVE [facility] Color Auto (U)on 05-06-2023 Color (U) YELLOW YELLOW [facility] Ketones Auto test strip (U) [Mass/Vol]on 05-06-2023 Ketones (U) [Mass/Vol] Negative NEGATIVE Fi [facility] Laboratory - Microbiology an d Antimicrobial susceptibilityOrdered By: Gypsy Mcmahon on 05-06-2023 Bacteria identified Cx Nom (U) [facility] Protein Auto test strip (U) [Mass/Vol]on 05-06-2023 Protein (U) [Mass/Vol] Negative NEG/TRACE Fi [facility] Specific gravity Auto test s trip (U) [Rel density]on 05-06-2023 Specific gravity (U) [Rel density] CLEAR CLEAR [facility] Urine glucose measurement by test strip (mass/volume)on 05-06-2023 Glucose Test strip (U) [Mass/Vol] Negative NEGATIVE [facility] Urine hemoglobin detection b y automated test stripon 05-06-2023 Hemoglobin Auto test strip Ql (U) TRACE-I NEGATIVE [facility] Urine nitrite detection by a utomated test stripon 05-06-2023 Nitrite Auto test strip Ql (U) SMALL NEGATIVE [facility] Nitrite Auto test strip Ql (U) Positive NEGATIVE [facility] Urobilinogen Auto test strip (U) [Mass/Vol]on 05-06-2023 Urobilinogen Qn (U) 0.2 {Gen'U}/dL 0.2-1.0 [facility] pH Auto test strip (U)on pH (U) 5.5 [pH] 5.0-9.0 [facility] No Panel Informationon 04-30 Clostridium difficile (PCR)(LAB) Negative NEGATIVE [facility] No Panel Informationon 04-06 Clostridium difficile (PCR)(LAB) Positive Negative [facility] Comment on above: Toxigenic C difficil e: PositiveEpidemic Strain Bl/NAP1/027: Presumptive NegativePerformed at: - [facility] [id number] [place], [place] [id number] Director: Salomon Mcarthur PhD, Phone: [phone] IntraOperative Documentson 0 02-12-2023 IntraOperative Documents [id number]#1.00TIFF Normal [facility] Physician Orderon 02-12-2023 Physician Order [id number]#1.00TIFF Normal [facility] Physician Order [id number]#1.00TIFF Normal [facility] ED Note-Physicianon 02-05-20 ED Note-Physician [id number]#1.00TIFF Normal [facility] Lab Reportson 02-04-2023 Lab Reports [id number]#1.00TIFF Normal [facility] Lab Reports [id number]#1.00TIFF [facility] Lab Reports [id number]#1.00TIFF [facility] Consent for Treatmenton 01-09 Consent for Treatment [id number]#1.00TIFF Normal [facility] Retail - Clinical Noteon Retail - Clinical Note [id number]#1.00TIFF [facility] Lab Reportson 01-28-2023 Lab Reports [id number]#1.00TIFF Normal [facility] Physician Orderon 01-28-2023 Physician Order [id number]#1.00TIFF [facility] Urology Office/Clinic Noteon 01-27-2023 Urology [...] d-mannose. We also talked about lyndsey and star. S/p Cysto 06/09/22 - mildly prolapsed urethra, [...] Urnls Dip Stick Auto w/o Microscopy POC 95970 2. 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 Case discussed w GI, Dr Brown's PRECISE WINDER Katie. he agrees w above plan. 3. [...] the risks of side effects etc. Orders: 92216 Measure Post Void residual urine and/or bladder capacity by US- non-imaging Total time spent reviewing previous notes/results/external documents, preparing the chart, conducting the encounter with the patient and family, ordering tests/medications, and documenting the encounter was 40 minutes. Follow-up With When Contact Information MALATHI VIEIRA PA-C, URL [address] [place] [id number] Additional Instructions: f/u in Spring Patient Education Urinary Tract Infection, Adult, Uotk-lk-Dcnw Documentation recorded by the scribe Caprice Stratton accurately reflects the services(s) I performed and decisions made by me. Authenticated by Malathi Vieira PA-C on 01/27/2023 13:56:47. I, Caprice Stratton, personally scribed for Malathi Vieira PA-C on (more content not included)... Normal [facility] Comment on above: Result Comment: Elec tronically Signed By: MALATHI VIEIRA PA-C\.br\Date and Time Signed: 01/27/23 13:57 EST\.br\Electronically Co-Signed By: Caprice Stratton\.br\Date and Time Co-Signed: 01/26/23 16:09 EST Ambulatory Visit Summaryon 1 03-29-2022 Ambulatory Visit Summary DELICIA HSU :1935 Visit Date:01/26/2023 Ambulatory Visit Instructions Your Diagnosis Recurrent UTI Feeling of incomplete bladder emptying Colitis Tests Performed Urnls Dip Stick Auto w/o Microscopy POC 93227 Your Care Team Attending Physician - MALATHI [...] MALATHI VIEIRA PA-C Where: [facility] Lab Reportson 01-26-2023 Lab Reports [id number]#1.00TIFF [facility] Patient Educationon 01-27-20 Patient Education [...] these instructions at home: Medicines ? Take kzpd-nmf-tgjsamt and prescription medicines only as told by [...] provider. Document Revised: 09/06/2020 Document Reviewed: 09/06/2020 [employer] Patient Education ? 2022 [employer] [facility] Lab Reportson 01-25-2023 Lab Reports [id number]#1.00TIFF [facility] Lab Reports [id number]#1.00TIFF [facility] Lab Reportson 12-04-2022 Lab Reports [id number]#1.00TIFF [facility] Physician Orderon 12-01-2022 Physician Order [id number]#1.00TIFF [facility] Office Visiton 11-11-2022 Follow-up visit [id number] Delicia Hsu 1935 F Date Provider Department Center 11/11/2022 KulwinderJAKE BARRY CARD [facility] Family History Problem Relation Age of Onset Aneurysm Mother Heart attack Father Family Status - Relation Status Age at Mother Father Level of Service:03870 DE OFFICE/OUTPATIENT ESTABLISHED LOW MDM 20-29 MIN Normal [facility] Lab Reportson 09-25-2022 Lab Reports [id number]#1.00CD:12 7 Normal [facility] Lab Reports [id number]#1.00CD:12 7 Normal [facility] Physician Orderon 09-23-2022 Physician Order [id number]#1.00CD:12 7 [facility] Screenson 09-23-2022 Screens [id number]#1.00CD:12 7 [facility] Ambulatory Visit Summaryon 0 09-22-2022 [...] MALATHI VIEIRA PA-C Where: [facility] Patient Educationon 09-23-19 23 Patient Education Obstetrics [...] these instructions at home: Medicines ? Take dfrl-vjt-twshnhy and prescription medicines only as told by [...] provider. Document Revised: 09/06/2020 Document Reviewed: 09/06/2020 [employer] Patient Education ? 2022 [employer] [facility] Urology Office/Clinic Noteon 09-22-2022 Urology [...] symptoms not resolved. C&S this morning at [facility] ( not finalized) UTI symptoms [...] resolved per daughter. C&S this morning at [facility] (not finalized) - will call [...] up having to send a U.Cx to [facility] so we can review the results. [...] When Contact Information MALATHI VIEIRA PA-C, URL [address] [place] [address] Additional Instructions: Patient Education Urinary Tract Infection, Adult, Vnsb-hn-Sasb Jazlyn Aviles, personally scribed for Malathi Vieira [...] 3 mg (more content not included)... Normal [facility] Comment on above: Result Comment: Elec tronically Signed By: MALATHI VIEIRA PA-C\.br\Date and Time Signed: 09/22/22 16:16 EDT\.br\Electronically Co-Signed By: Jazlyn Lucero\.br\Date and Time Co-Signed: 09/22/22 15:38 EDT Lab Reportson 07-02-2022 Lab Reports [id number]#1.00CD:12 7 Normal [facility] Office Visiton 06-30-2022 Follow-up visit [id number] Delicia Hsu 1935 F Date Provider Department Center 06/30/2022 Kulwinder-JAKE BARRY CARD [facility] Family History Problem Relation Age of Onset Aneurysm Mother Heart attack Father Family Status - Relation Status Age at Mother Father Level of Service:46976 DE OFFICE/OUTPATIENT NEW MODERATE MDM 45-59 MINUTES Normal [facility] CT ABD/PELVIS WO CONon 05-27 CT [...] MI NUÑEZ Date: 2022-05-27 10:34 Normal [facility] CULTURE URINEon 05-14-2022 CULTURE URINE Culture [...] Trimethoprim/Sulfamethoxa zole <=20 S F Normal [facility] Comment on above: Performed By: #### U RCX #### [facility] [address] [place], [place] [address] Dr. Anthony Bonilla UA RANDOMon 05-11-2022 Bilirubin Ql (U) Negative Normal NEGATIVE The [facility] Comment on above: Performed By: #### U RCX #### [facility] [address] [place], [place] [address] Dr. Anthony Bonilla Clarity (U) SL CLOUDY Abnormal CLEAR [facility] Comment on above: Performed By: #### U RCX #### [facility] [address] [place] [address] Dr. Anthony Bonilla Color (U) LT. YELLOW Normal YELLOW [facility] Comment on above: Performed By: #### U RCX #### [facility] [address] [place] [address] Dr. Anthony Bonilla Glucose Ql (U) Negative Normal NEGATIVE [facility] Comment on above: Performed By: #### U RCX #### [facility] [address] [place] [address] Dr. Anthony Bonilla Hemoglobin Ql (U) Negative Normal NEGATIVE [facility] Comment on above: Performed By: #### U RCX #### [facility] [address] [place] [address] Dr. Anthony Bonilla Ketones Ql (U) Negative Normal NEGATIVE [facility] Comment on above: Performed By: #### U RCX #### [facility] [address] [place] [address] Dr. Anthony Bonilla LEUKOCYTES MODERATE Abnormal NEGATIVE [facility] Comment on above: Performed By: #### U RCX #### [facility] [address] [place] [address] Dr. Anthony Bonilla Nitrite Ql (U) Negative Normal NEGATIVE [facility] Comment on above: Performed By: #### U RCX #### [facility] [address] [place] [address] Dr. Anthony Bonilla pH (U) 5.5 [pH] Normal 5-9 [facility] Comment on above: Performed By: #### U RCX #### [facility] [address] [place] [address] Dr. Anthony Bonilla SPEC GRAVITY 1.020 Normal 1.005-<=1. 025 [facility] Comment on above: Performed By: #### U RCX #### [facility] [address] [place] [address] Dr. Anthony Bonilla UA PROTEIN Negative Normal NEGATIVE/ TRACE [facility] Comment on above: Performed By: #### U RCX #### [facility] [address] [place] [address] Dr. Anthony Bonilla Urobilinogen Qn (U) 0.2 {Gen'U}/dL Normal 0.2 - 1. 0 [facility] Comment on above: Performed By: #### U RCX #### [facility] [address] [place] [address] Dr. Anthony Bonilla CULTURE URINEon 05-01-2022 CULTURE [...] Trimethoprim/Sulfamethoxa zole <=20 S F Normal [facility] Comment on above: Performed By: #### U RCX #### [facility] [address] [place] [address] [id number] [address] Anthony Bonilla CULTURE URINEon 04-16-2022 CULTURE [...] F Nitrofurantoin 64 I F Normal [facility] Comment on above: Performed By: #### U RCX #### [facility] [address] [place] [address] Dr. Anthony Bonilla UA RANDOMon 04-14-2022 Bilirubin Ql (U) Negative Normal NEGATIVE [facility] Comment on above: Performed By: #### U RCX #### [facility] [address] [place] [address] Dr. Anthony Bonilla Clarity (U) CLEAR Normal CLEAR [facility] Comment on above: Performed By: #### U RCX #### [facility] [address] [place] [address] Dr. Anthony Bonilla Color (U) LT. YELLOW Normal YELLOW [facility] Comment on above: Performed By: #### U RCX #### [facility] [address] [place] [address] Dr. Anthony Bonilla Glucose Ql (U) Negative Normal NEGATIVE [facility] Comment on above: Performed By: #### U RCX #### [facility] [address] [place] [address] Dr. Anthony Bonilla Hemoglobin Ql (U) Negative Normal NEGATIVE [facility] Comment on above: Performed By: #### U RCX #### [facility] [address] [place] [address] Dr. Anthony Bonilla Ketones Ql (U) Negative Normal NEGATIVE [facility] Comment on above: Performed By: #### U RCX #### [facility] [address] [place] [address] Dr. Anthony Bonilla LEUKOCYTES MODERATE Abnormal NEGATIVE [facility] Comment on above: Performed By: #### U RCX #### [facility] [address] [place] [address] Dr. Anthony Bonilla Nitrite Ql (U) Negative Normal NEGATIVE [facility] Comment on above: Performed By: #### U RCX #### [facility] [address] [place], [place] [id number] Dr. Anthony Bonilla pH (U) 5.5 [pH] Normal 5-9 [facility] Comment on above: Performed By: #### U RCX #### [facility] [address] [address] [address] Anthony Bonilla SPEC GRAVITY 1.020 Normal 1.005-<=1. 025 [facility] Comment on above: Performed By: #### U RCX #### [facility] [address] [address] [address] Anthony Bonilla UA PROTEIN Negative Normal NEGATIVE/ TRACE [facility] Comment on above: Performed By: #### U RCX #### [facility] [address] [place] [address] Dr. Anthony Bonilla Urobilinogen Qn (U) 0.2 {Gen'U}/dL Normal 0.2 - 1. 0 [facility] Comment on above: Performed By: #### U RCX #### [facility] [address] [place] [address] Dr. Anthony Bonilla Urinalysis - DIPSTICKon -2 Appearance (U) clear [employer] Other Bilirubin Ql (U) [employer] Other Color (U) dark yellow [employer] Other Glucose Ql (U) Negative [employer] Other Hemoglobin Ql (U) Negative [employer] Other Ketones Ql (U) trace [employer] Other Leukocyte esterase Test strip Ql (U) [employer] Other Nitrite Ql (U) Negative [employer] Other pH (U) 5.0 [pH] [employer] Other Protein Ql (U) Negative [employer] Other Specific gravity (U) [Rel density] 1.015 [employer] Other Urobilinogen (U) [Mass/Vol] 0.2 mg/dL [facility] [employer] Other Urinalysis - DIPSTICK [employer] Other Urine Cultureon 03-30-2022 Urine Culture 10,000 [facility] Other Bacteria identified Cx Nom (U) [facility] [employer] Other CULTURE URINEon 03-23-2022 CULTURE URINE Isolate 1 Pseudomonas aeruginosa >100,000 cfu/mL of ORGANISM 1 Pseudomonas aeruginosa ANTIBIOTIC M.I.C RX STATUS Piperacillin/Tazobactam 8 S F Ceftazidime 4 S F Imipenem 1 S F Amikacin <=2 S F Gentamicin <=1 S F Tobramycin <=1 S F Ciprofloxacin <=0.25 S F Levofloxacin 0.5 S F Normal [facility] Comment on above: Performed By: #### U RCX #### [facility] [address] [place] [address] Dr. Anthony Bonilla CARDIAC DARWIN ADMITon 023 CK [Catalytic activity/Vol] 137 U/L Normal 26-192 [facility] Comment on above: Performed By: #### U RCX #### [facility] [address] [place] [address] Dr. Anthony Bonilla CK.MB [Mass/Vol] 1.05 ng/mL Normal <=3.60 The [facility] Comment on above: Performed By: #### U RCX #### [facility] [address] [place] [address] Dr. Anthony Boinlla HSTROP 17.6 pg/mL Normal 4.0-51.3 [facility] Comment on above: Result Comment: CUT- OFF POINTS HAVE BEEN ESTABLISHED BASED ON THE FOURTH UNIVERSAL DEFINITIONS OF MYOCARDIAL INFARCTION. THE UPPER REFERENCE LIMIT (URL) OF TROPONIN, DEFINED THE 99TH PERCENTILE OF cTnI DISTRIBUTION IN A REFERENCE POPULATION, HAS BEEN CONFIRMED THE DECISION THRESHOLD FOR LA DIAGNOSIS. Performed By: #### U RCX #### [facility] [address] [place] [address] Dr. Anthony Bonilla CANDIDA 72 ng/mL Normal 9-82 [facility] Comment on above: Performed By: #### U RCX #### [facility] [address] [place] [address] Dr. Anthony Bonilla CBC AUTO DIFFon 03-20-2022 BASO # 0.0 103/ul Normal 0.0-0.1 [facility] Comment on above: Performed By: #### C BC #### [facility] [address] [place] [address] Dr. Anthony Bonilla Basophils/100 WBC (Bld) 0.3 % Normal 0.2-2.0 [facility] Comment on above: Performed By: #### C BC #### [facility] [address] [place] [address] Dr. Anthony Bonilla EO # 0.0 103/ul Normal 0.0-0.7 [facility] Comment on above: Performed By: #### C BC #### [facility] [address] [place] [address] Dr. Anthony Bonilla Eosinophils/100 WBC (Bld) 0.1 % Critically low 0.9-7.0 [facility] Comment on above: Performed By: #### C BC #### [facility] [address] [place] [address] Dr. Anthony Bonilla Erythrocyte distribution width (RBC) [Ratio] 15.9 % Critically high 11.0-15.0 [facility] Comment on above: Performed By: #### C BC #### [facility] [address] [place] [address] Dr. Anthony Bonilla Hematocrit (Bld) [Volume fraction] 33.6 % Critically low 36.0-48.0 [facility] Comment on above: Performed By: #### C BC #### [facility] [address] [place] [address] Dr. Anthony Bonilla Hemoglobin (Bld) [Mass/Vol] 11.2 g/dL Critically low 12.0-16.0 [facility] Comment on above: Performed By: #### C BC #### [facility] [address] [place] [address] Dr. Anthony Bonilla IG # 0.04 10e3/ul Critically high 0.00-0.03 [facility] Comment on above: Performed By: #### C BC #### [facility] [address] [place] [address] Dr. Anthony Bonilla IG % 0.3 % Normal 0.0-0.5 [facility] Comment on above: Performed By: #### C BC #### [facility] [address] [address] [address] Anthony Bonilla LYMPH # 0.8 103/ul Critically low 1.2-3.8 [facility] Comment on above: Performed By: #### C BC #### [facility] [address] [place] [address] Dr. Anthony Bonilla Lymphocytes/100 WBC (Bld) 6.4 % Critically low 20.5-60.0 [facility] Comment on above: Performed By: #### C BC #### [facility] [address] [place] [address] Dr. Anthony Bonilla MANUAL DIFF REQ NO Normal [facility] Comment on above: Performed By: #### C BC #### [facility] [address] [place] [address] Dr. Anthony Bonilla MCH (RBC) [Entitic mass] 28.9 pg Normal 26.7-34.0 [facility] Comment on above: Performed By: #### C BC #### [facility] [address] [place] [address] Dr. Anthony Bonilla MCHC (RBC) [Mass/Vol] 33.3 g/dL Normal 29.9-35.2 [facility] Comment on above: Performed By: #### C BC #### [facility] [address] [place] [address] Dr. Anthony Bonilla MCV (RBC) [Entitic vol] 86.8 fL Normal 81.0-99.0 [facility] Comment on above: Performed By: #### C BC #### [facility] [address] [place] [address] Dr. Anthony Bonilla MONO # 1.1 103/ul Critically high 0.3-0.8 [facility] Comment on above: Performed By: #### C BC #### [facility] [address] [place] [address] Dr. Anthony Bonilla Monocytes/100 WBC (Bld) 8.3 % Normal 1.7-12.0 [facility] Comment on above: Performed By: #### C BC #### [facility] [address] [place] [address] Dr. Anthony Bonilla NEUT # 11.2 103/ul Critically high 1.4-6.5 [facility] Comment on above: Performed By: #### C BC #### [facility] [address] [place] [address] Dr. Anthony Bonilla Neutrophils/100 WBC (Bld) 84.6 % Critically high 43.0-75.0 [facility] Comment on above: Performed By: #### C BC #### [facility] [address] [place] [address] Dr. Anthony Bonilla Platelet mean volume (Bld) [Entitic vol] 9.7 fL Normal 9.5-13.5 [facility] Comment on above: Performed By: #### C BC #### [facility] [address] [place] [address] Dr. Anthony Bonilla PLT 274 103/ul Normal 150-450 [facility] Comment on above: Performed By: #### C BC #### [facility] [address] [place] [address] Dr. Anthony Bonilla RBC 3.87 106/ul Critically low 4.20-5.40 [facility] Comment on above: Performed By: #### C BC #### [facility] [address] [place] [address] Dr. Anthony Bonilla WBC 13.2 103/ul Critically high 4.0-11.0 The [facility] Comment on above: Performed By: #### C BC #### [facility] [address] [place] [address] HEAD WO CONon [...] CLAU SHAH Date: 2022-03-20 20:30 Normal [facility] ER URINE PROFILEon 3 Bilirubin Ql (U) Negative Normal NEGATIVE The [facility] Comment on above: Performed By: #### C BC #### [facility] [address] [place] [address] Dr. Anthony Bonilla Clarity (U) CLEAR Normal CLEAR [facility] Comment on above: Performed By: #### C BC #### [facility] [address] [place] [address] Dr. Anthony Bonilla Color (U) LT. YELLOW Normal YELLOW [facility] Comment on above: Performed By: #### C BC #### [facility] [address] [place] [address] Dr. Anthony Boinlla ERUAHD A micrscopic examina tion will be performed if indicated. Normal [facility] Comment on above: Performed By: #### C BC #### [facility] [address] [place] [address] Dr. Anthony Bonilla Glucose Ql (U) Negative Normal NEGATIVE [facility] Comment on above: Performed By: #### C BC #### [facility] [address] [place] [address] Dr. Anthony Bonilla Hemoglobin Ql (U) LARGE Abnormal NEGATIVE [facility] Comment on above: Performed By: #### C BC #### [facility] [address] [place] [address] Dr. Anthony Bonilla Ketones Ql (U) Negative Normal NEGATIVE [facility] Comment on above: Performed By: #### C BC #### [facility] [address] [place] [address] Dr. Anthony Bonilla LEUKOCYTES SMALL Abnormal NEGATIVE [facility] Comment on above: Performed By: #### C BC #### [facility] [address] [place] [address] Dr. Anthony Bonilla Nitrite Ql (U) Positive Abnormal NEGATIVE [facility] Comment on above: Performed By: #### C BC #### [facility] [address] [place] [address] Dr. Anthony Bonilla pH (U) 7.0 [pH] Normal 5-9 [facility] Comment on above: Performed By: #### C BC #### [facility] [address] [place] [address] Dr. Anthony Bonilla Protein (U) [Mass/Vol] 30 mg/dL Abnormal NEGAT JAMAR/ TRACE [facility] Comment on above: Performed By: #### C BC #### [facility] [address] [place] [address] Dr. Anthony Bonilla SPEC GRAVITY 1.015 Normal 1.005-<=1. 025 [facility] Comment on above: Performed By: #### C BC #### [facility] [address] [place] [address] Dr. Anthony Bonilla UR MICRO IND INDICATED Normal [facility] Comment on above: Performed By: #### C BC #### [facility] [address] [place] [address] Dr. Anthony Bonilla Urobilinogen Qn (U) 1.0 {Gen'U}/dL Normal 0.2 - 1. 0 [facility] Comment on above: Performed By: #### C BC #### [facility] [address] [place] [address] Dr. Anthony Bonilla PROF 14(COMP METB)on 023 Albumin [Mass/Vol] 3.4 g/dL Normal 3.4-5.0 [facility] Comment on above: Performed By: #### U RCX #### [facility] [address] [place] [address] Dr. Anthony Bonilla Albumin/Globulin [Mass ratio] 1.2 {ratio} Normal [facility] Comment on above: Performed By: #### U RCX #### [facility] [address] [place] [address] Dr. Anthony Bonilla ALP [Catalytic activity/Vol] 26 U/L Critically low 46-116 [facility] Comment on above: Performed By: #### U RCX #### [facility] [address] [place] [address] Dr. Anthony Bonilla ALT [Catalytic activity/Vol] 21 U/L Normal 14-59 [facility] Comment on above: Performed By: #### U RCX #### [facility] [address] [place] [address] Dr. Anthony Bonilla Anion gap [Moles/Vol] 13.7 mmol/L Normal [facility] Comment on above: Performed By: #### U RCX #### [facility] [address] [place] [address] Dr. Anthony Bonilla AST [Catalytic activity/Vol] 20 U/L Normal 15-37 [facility] Comment on above: Performed By: #### U RCX #### [facility] [address] [place] [address] Dr. Anthony Bonilla Bilirubin [Mass/Vol] 1.2 mg/dL Critically high 0.2-1.0 [facility] Comment on above: Performed By: #### U RCX #### [facility] [address] [address] [address] Anthony Bonilla Calcium [Mass/Vol] 9.4 mg/dL Normal 8.5-10.1 [facility] Comment on above: Performed By: #### U RCX #### [facility] [address] [address] [address] Anthony Bonilla Chloride [Moles/Vol] 99 mmol/L Normal 98-107 [facility] Comment on above: Performed By: #### U RCX #### [facility] [address] [address] [address] Anthony Bonilla CO2 [Moles/Vol] 29.1 mmol/L Normal 21.0-32.0 [facility] Comment on above: Performed By: #### U RCX #### [facility] [address] [address] [address] Anthony Bonilla Creatinine [Mass/Vol] 1.02 mg/dL Normal 0.55-1.02 [facility] Comment on above: Performed By: #### U RCX #### [facility] [address] [address] [address] Anthony Bonilla EGFR-AF GERMAN >60 Normal >=60 [facility] Comment on above: Performed By: #### U RCX #### [facility] [address] [address] [address] Anthony Bonilla EGFR-NON AF GERMAN 52 mL/min/1.73m2 Critically low >=60 [facility] Comment on above: Performed By: #### U RCX #### [facility] [address] [address] [address] Anthony Bonilla Globulin (S) [Mass/Vol] 2.9 g/dL Normal [facility] Comment on above: Performed By: #### U RCX #### [facility] [address] [address] [address] Anthony Bonilla Glucose [Mass/Vol] 98 mg/dL Normal 74-106 [facility] Comment on above: Performed By: #### U RCX #### [facility] [address] [place] [address] Dr. Anthony Bonilla Potassium [Moles/Vol] 3.8 mmol/L Normal 3.5-5.1 [facility] Comment on above: Performed By: #### U RCX #### [facility] [address] [place] [address] Dr. Anthony Bonilla Protein [Mass/Vol] 6.3 g/dL Critically low 6.4-8.2 Th [facility] Comment on above: Performed By: #### U RCX #### [facility] [address] [place] [address] Dr. Anthony Bonilla Sodium [Moles/Vol] 138 mmol/L Normal 136-145 [facility] Comment on above: Performed By: #### U RCX #### [facility] [address] [place] [address] Dr. Anthony Bonilla Urea nitrogen [Mass/Vol] 16.0 mg/dL Normal 7.0-18.0 [facility] Comment on above: Performed By: #### U RCX #### [facility] [address] [place] [address] Dr. Anthony Bonilla Urea nitrogen/Creatinine [Mass ratio] 15.7 mg/mg Normal [facility] Comment on above: Performed By: #### U RCX #### [facility] [address] [place] [address] Dr. Anthony Bonilla URINE MICROSCOPIC ONLYon BACTERIA LARGE Abnormal NONE SEEN [facility] Comment on above: Performed By: #### C BC #### [facility] [address] [place] [address] Dr. Anthony Bonilla Bacteria identified Cx Nom (U) INDICATED Normal [facility] Comment on above: Performed By: #### C BC #### [facility] [address] [place] [address] Dr. Anthony Bonilla CAST NONE SEEN Normal NONE SEEN [facility] Comment on above: Performed By: #### C BC #### [facility] [address] [place] [address] Dr. Anthony Bonilla Crystals LM Nom (Urine sed) NONE SEEN Normal NONE SEEN [facility] Comment on above: Performed By: #### C BC #### [facility] [address] [place] [address] Dr. Anthony Bonilla Epithelial cells LM Ql (Urine sed) FEW Abnormal NONE SEEN /RARE [facility] Comment on above: Performed By: #### C BC #### [facility] [address] [place] [address] Dr. Anthony Bonilla MUCOUS NONE SEEN Normal NONE SEEN [facility] Comment on above: Performed By: #### C BC #### [facility] [address] [place] [address] Dr. Anthony Bonilla RBC 10-20 Abnormal 0-2 [facility] Comment on above: Performed By: #### C BC #### [facility] [address] [place] [address] Dr. Anthony Bonilla WBC 50-75 Abnormal NONE SEEN The [facility] Comment on above: Performed By: #### C BC #### [facility] [address] [place] [address] Dr. Anthony Bonilla CALPROTECTIN, FECALon 2022 Calprotectin, Fecal 416 ug/g Critically high 0-120 [facility] Comment on above: Result Comment: Conc entration Interpretation Follow-Up <16 - 50 ug/g Normal None >50 -120 ug/g Borderline Re-evaluate in 4-6 weeks >120 ug/g Abnormal Repeat as clinically indicated Performed By: #### U RCX #### [facility] [address] [place] [address] Dr. Anthony Bonilla QUANTIFERON TB GOLD PLUSon 0 02-19-2022 QuantiFERON Criteria Comment Normal [facility] Comment on above: Result Comment: [...] test. Performed By: #### U RCX #### [facility] [address] [place] [address] Dr. Anthony Bonilla QuantiFERON Incubation Incubation performed. Normal [facility] Comment on above: Performed By: #### U RCX #### [facility] [address] [place] [address] Dr. Anthony Bonilla QuantiFERON Mitogen Value >10.00 Normal [facility] Comment on above: Performed By: #### U RCX #### [facility] [address] [place] [address] Dr. Anthony Bonilla QuantiFERON Nil Value 0.07 IU/mL Normal [facility] Comment on above: Performed By: #### U RCX #### [facility] [address] [place] [address] Dr. Anthony Bonilla QuantiFERON TB1 Ag Value 0.08 IU/mL Normal [facility] Comment on above: Performed By: #### U RCX #### [facility] [address] [place] [address] Dr. Anthony Bonilla QuantiFERON TB2 Ag Value 0.07 IU/mL Normal [facility] Comment on above: Performed By: #### U RCX #### [facility] [address] [place] [address] Dr. Anthony Bonilla QuantiFERON-TB Gold Plus Negative Normal Negative [facility] Comment on above: Result Comment: No r esponse to M tuberculosis antigens detected. Infection with M tuberculosis is unlikely, but high risk individuals should be considered for additional testing (ATS/IDSA/CDC Clinical Practice Guidelines, 2017). The reference range is an Antigen minus Nil result of <0.35 IU/mL. Chemiluminescence immunoassay methodology Performed By: #### U RCX #### [facility] [address] [place] [address] Dr. Anthony Bonilla HEP B SURFACE ANTIGEN SCREEN on 02-18-2022 HBsAg Screen Negative Normal Negative [facility] Comment on above: Performed By: #### U RCX #### [facility] [address] [place] [address] Dr. Anthony Bonilla HEPATITIS B CORE, IgMon 02-08 Hep B Core Ab, IgM Negative Normal Negative [facility] Comment on above: Performed By: #### U RCX #### [facility] [address] [place] [address] Dr. Anthony Bonilla HEPATITIS B SURFACE ANTIBODY , QUANTon 02-18-2022 Hepatitis B Surf AB Quant <3.1 Critically low Immunity>9 .9 [facility] Comment on above: Result Comment: Stat us of Immunity Anti-HBs Level Inconsistent with Immunity 0.0 - 9.9 Consistent with Immunity >9.9 Performed By: #### C BC #### [facility] [facility] [address] [place] [address] Dr. Anthony Bonilla CBC AUTO DIFFon 02-17-2022 BASO # 0.0 103/ul Normal 0.0-0.1 [facility] Comment on above: Performed By: #### U RCX #### [facility] [address] [place] [address] Dr. Anthony Bonilla Basophils/100 WBC (Bld) 0.4 % Normal 0.2-2.0 [facility] Comment on above: Performed By: #### U RCX #### [facility] [address] [place] [address] Dr. Anthony Bonilla EO # 0.0 103/ul Normal 0.0-0.7 [facility] Comment on above: Performed By: #### U RCX #### [facility] [address] [place] [address] Dr. Anthony Bonilla Eosinophils/100 WBC (Bld) 0.5 % Critically low 0.9-7.0 [facility] Comment on above: Performed By: #### U RCX #### [facility] [address] [place] [address] Dr. Anthony Bonilla Erythrocyte distribution width (RBC) [Ratio] 14.7 % Normal 11.0-15.0 [facility] Comment on above: Performed By: #### U RCX #### [facility] [address] [place] [address] Dr. Anthony Bonilla Hematocrit (Bld) [Volume fraction] 33.2 % Critically low 36.0-48.0 [facility] Comment on above: Performed By: #### U RCX #### [facility] [address] [place] [address] Dr. Anthony Bonilla Hemoglobin (Bld) [Mass/Vol] 11.0 g/dL Critically low 12.0-16.0 [facility] Comment on above: Performed By: #### U RCX #### [facility] [address] [place] [address] Dr. Anthony Bonilla IG # 0.02 10e3/ul Normal 0.00-0.03 [facility] Comment on above: Performed By: #### U RCX #### [facility] [address] [place] [address] Dr. Anthony Bonilla IG % 0.2 % Normal 0.0-0.5 [facility] Comment on above: Performed By: #### U RCX #### [facility] [address] [place] [address] Dr. Anthony Bonilla LYMPH # 1.3 103/ul Normal 1.2-3.8 [facility] Comment on above: Performed By: #### U RCX #### [facility] [address] [place] [address] Dr. Anthony Bonilla Lymphocytes/100 WBC (Bld) 14.8 % Critically low 20.5-60.0 [facility] Comment on above: Performed By: #### U RCX #### [facility] [address] [place] [address] Dr. Anthony Bonilla MANUAL DIFF REQ NO Normal [facility] Comment on above: Performed By: #### U RCX #### [facility] [address] [place] [address] Dr. Anthony Bonilla MCH (RBC) [Entitic mass] 29.0 pg Normal 26.7-34.0 [facility] Comment on above: Performed By: #### U RCX #### [facility] [address] [place] [address] Dr. Anthony Bonilla MCHC (RBC) [Mass/Vol] 33.1 g/dL Normal 29.9-35.2 [facility] Comment on above: Performed By: #### U RCX #### [facility] [address] [address] [address] Anthony Bonilla MCV (RBC) [Entitic vol] 87.6 fL Normal 81.0-99.0 [facility] Comment on above: Performed By: #### U RCX #### [facility] [address] [place] [address] Dr. Anthony Bonilla MONO # 0.8 103/ul Normal 0.3-0.8 [facility] Comment on above: Performed By: #### U RCX #### [facility] [address] [place] [address] Dr. Anthony Bonilla Monocytes/100 WBC (Bld) 9.6 % Normal 1.7-12.0 [facility] Comment on above: Performed By: #### U RCX #### [facility] [address] [place] [address] Dr. Anthony Bonilla NEUT # 6.3 103/ul Normal 1.4-6.5 [facility] Comment on above: Performed By: #### U RCX #### [facility] [address] [place] [address] Dr. Anthony Bonilla Neutrophils/100 WBC (Bld) 74.5 % Normal 43.0-75.0 [facility] Comment on above: Performed By: #### U RCX #### [facility] [address] [place] [address] Dr. Anthony Bonilla Platelet mean volume (Bld) [Entitic vol] 9.8 fL Normal 9.5-13.5 [facility] Comment on above: Performed By: #### U RCX #### [facility] [address] [place] [address] Dr. Anthony Bonilla PLT 318 103/ul Normal 150-450 [facility] Comment on above: Performed By: #### U RCX #### [facility] [address] [place] [address] Dr. Anthony Bonilla RBC 3.79 106/ul Critically low 4.20-5.40 [facility] Comment on above: Performed By: #### U RCX #### [facility] [address] [place] [address] Dr. Anthony Bonilla WBC 8.5 103/ul Normal 4.0-11.0 [facility] Comment on above: Performed By: #### U RCX #### [facility] [address] [place] [address] Dr. Anthony Bonilla PROF 14(COMP METB)on 023 Albumin [Mass/Vol] 3.6 g/dL Normal 3.4-5.0 [facility] Comment on above: Performed By: #### U RCX #### [facility] [address] [place] [address] Dr. Anthony Bonilla Albumin/Globulin [Mass ratio] 1.2 {ratio} Normal [facility] Comment on above: Performed By: #### U RCX #### [facility] [address] [place] [address] Dr. Anthony Bonilla ALP [Catalytic activity/Vol] 27 U/L Critically low 46-116 [facility] Comment on above: Performed By: #### U RCX #### [facility] [address] [place] [address] Dr. Anthony Bonilla ALT [Catalytic activity/Vol] 21 U/L Normal 14-59 [facility] Comment on above: Performed By: #### U RCX #### [facility] [address] [place] [address] Dr. Anthony Bonilla Anion gap [Moles/Vol] 13.5 mmol/L Normal [facility] Comment on above: Performed By: #### U RCX #### [facility] [address] [place] [address] Dr. Anthony Bonilla AST [Catalytic activity/Vol] 19 U/L Normal 15-37 [facility] Comment on above: Performed By: #### U RCX #### [facility] [address] [place] [address] Dr. Anthony Bonilla Bilirubin [Mass/Vol] 0.6 mg/dL Normal 0.2-1.0 [facility] Comment on above: Performed By: #### U RCX #### [facility] [address] [address] [address] Anthony Bonilla Calcium [Mass/Vol] 9.2 mg/dL Normal 8.5-10.1 [facility] Comment on above: Performed By: #### U RCX #### [facility] [address] [address] [address] Anthony Bonilla Chloride [Moles/Vol] 104 mmol/L Normal 98-107 [facility] Comment on above: Performed By: #### U RCX #### [facility] [address] [place] [address] Dr. Anthony Bonilla CO2 [Moles/Vol] 28.9 mmol/L Normal 21.0-32.0 [facility] Comment on above: Performed By: #### U RCX #### [facility] [address] [address] [address] Anthony Bonilla Creatinine [Mass/Vol] 1.21 mg/dL Critically high 0.55-1.02 [facility] Comment on above: Performed By: #### U RCX #### [facility] [address] [place] [address] Dr. Anthony Bonilla EGFR-AF GERMAN 51 mL/min/1.73m2 Critically low >=60 [facility] Comment on above: Performed By: #### U RCX #### [facility] [address] [place] [address] Dr. Anthony Bonilla EGFR-NON AF GERMAN 42 mL/min/1.73m2 Critically low >=60 [facility] Comment on above: Performed By: #### U RCX #### [facility] [address] [place] [address] Dr. Anthony Bonilla Globulin (S) [Mass/Vol] 3.1 g/dL Normal [facility] Comment on above: Performed By: #### U RCX #### [facility] [address] [place] [address] Dr. Anthony Bonilla Glucose [Mass/Vol] 107 mg/dL Critically high 74-106 [facility] Comment on above: Performed By: #### U RCX #### [facility] [address] [address] [address] Anthony Bonilla Potassium [Moles/Vol] 3.4 mmol/L Critically low 3.5-5.1 [facility] Comment on above: Performed By: #### U RCX #### [facility] [address] [address] [address] Anthony Bonilla Protein [Mass/Vol] 6.7 g/dL Normal 6.4-8.2 [facility] Comment on above: Performed By: #### U RCX #### [facility] [address] [place] [address] Dr. Anthony Bonilla Sodium [Moles/Vol] 143 mmol/L Normal 136-145 [facility] Comment on above: Performed By: #### U RCX #### [facility] [address] [address] [address] Anthony Bonilla Urea nitrogen [Mass/Vol] 22.0 mg/dL Critically high 7.0-18.0 [facility] Comment on above: Performed By: #### U RCX #### [facility] [address] [place] [address] Dr. Anthony Bonilla Urea nitrogen/Creatinine [Mass ratio] 18.2 mg/mg Normal [facility] Comment on above: Performed By: #### U RCX #### [facility] [address] [place] [address] Dr. Anthony Bonilla Automated erythrocytes count in urine sediment (number/area)Ordered By: Gypsy Mcmahon on 02-16-2022 RBC Auto (Urine sed) [#/Area] 0-1 [HPF] 0-4 [facility] Automated leukocytes count i n urine sediment (number/area)Ordered By: Gypsy Mcmahon on 02-16-2022 WBC Auto (Urine sed) [#/Area] 20-49 [HPF] 0-4 [facility] Bilirubin Test strip Ql (U)O rdered By: Gypsy Mcmahon on 02-16-2022 Bilirubin Ql (U) Negative Negative [facility] Color Auto (U)Ordered By: Nicole Mcmahon on 02-16-2022 Color (U) Yellow Yellow [facility] Ketones Auto test strip (U) [Mass/Vol]Ordered By: Gypsy Mcmahon on 02-16-2022 Ketones (U) [Mass/Vol] Trace Negative [facility] - UrinalysisOrder ed By: Gypsy Mcmahon on 02-16-2022 Hyaline casts LM Ql (Urine sed) 9-19 [LPF] 0-8 [facility] Nitrite Test strip Ql (U)Ord ered By: Gypsy Mcmahon on 02-16-2022 Nitrite Ql (U) Positive Negative [facility] Protein Auto test strip (U) [Mass/Vol]Ordered By: Gypsy Mcmahon on 02-16-2022 Protein (U) [Mass/Vol] Negative Negative [facility] Specific gravity Auto test s trip (U) [Rel density]Ordered By: Gypsy Mcmahon on 02-16-2022 Specific gravity (U) [Rel density] 1.018 1.001-1.03 0 [facility] Squamous epithelial cells de tection in urine sediment by light microscopyOrdered By: Gypsy Mcmahon on 02-16-2022 Epithelial cells.squamous LM Ql (Urine sed) 5-9 [HPF] 0-2 [facility] Urine Cultureon 02-16-2022 Urine Culture >100,000 [facility] Other Urine Culture <16 Susceptible [facility] Other Urine Culture <8/4 Susceptible [facility] Other Urine Culture <4 Susceptible [facility] Other Urine Culture <2 Susceptible [facility] Other Urine Culture <1 Susceptible [facility] Other Urine Culture <0.25 Susceptible [facility] Other Urine Culture <0.5 Susceptible [facility] Other Urine Culture <32 Susceptible [facility] Other Urine Culture <0.5/9.5 Susceptible [facility] Other Urine bacteria detection by automated methodOrdered By: Gypsy Mcmahon on 02-16-2022 Bacteria Auto Ql (U) 2+ None Seen [facility] Urine clarity by refractomet ry automatedOrdered By: Gypsy Mcmahon on 02-16-2022 Clarity Refractometry automated (U) Cloudy Clear [facility] Urine culture routineOrdered By: Gypsy Mcmahon on 02-16-2022 Bacteria identified Cx Nom (U) Klebsiella variicola [facility] Urine glucose measurement by automated test strip (mass/volume)Ordered By: Gypsy Mcmahon on 02-16-2022 Glucose Auto test strip (U) [Mass/Vol] Normal mg/dL Normal [facility] Urine hemoglobin detection b y automated test stripOrdered By: Gypsy Mcmahon on 02-16-2022 Hemoglobin Auto test strip Ql (U) Negative Negative [facility] Urine leukocyte esterase det ection by automated test stripOrdered By: Gypsy Mcmahon on 02-16-2022 Leukocyte esterase Auto test strip Ql (U) 2+ Negative [facility] Urobilinogen Auto test strip (U) [Mass/Vol]Ordered By: Gypsy Mcmahon on 02-16-2022 Urobilinogen (U) [Mass/Vol] Normal mg/dL Normal [facility] pH Auto test strip (U)Ordere d By: Gypsy Mcmahon on 02-16-2022 pH (U) 5.5 [pH] 5.0-9.0 [facility] CBC AUTO DIFFon 01-15-2022 BASO # 0.0 103/ul Normal 0.0-0.1 [facility] Comment on above: Performed By: #### C BC #### [facility] [address] [place] [address] Dr. Anthony Bonilla Basophils/100 WBC (Bld) 0.5 % Normal 0.2-2.0 [facility] Comment on above: Performed By: #### C BC #### [facility] [address] [place] [address] Dr. Anthony Bonilla EO # 0.1 103/ul Normal 0.0-0.7 [facility] Comment on above: Performed By: #### C BC #### [facility] [address] [place] [address] Dr. Anthony Bonilla Eosinophils/100 WBC (Bld) 0.9 % Normal 0.9-7.0 [facility] Comment on above: Performed By: #### C BC #### [facility] [address] [place] [address] Dr. Anthony Bonilla Erythrocyte distribution width (RBC) [Ratio] 14.8 % Normal 11.0-15.0 [facility] Comment on above: Performed By: #### C BC #### [facility] [address] [place] [address] Dr. Anthony Bonilla Hematocrit (Bld) [Volume fraction] 30.3 % Critically low 36.0-48.0 [facility] Comment on above: Performed By: #### C BC #### [facility] [address] [place] [address] Dr. Anthony Bonilla Hemoglobin (Bld) [Mass/Vol] 9.8 g/dL Critically low 12.0-16.0 [facility] Comment on above: Performed By: #### C BC #### [facility] [address] [place] [address] Dr. Anthony Bonilla IG # 0.03 10e3/ul Normal 0.00-0.03 [facility] Comment on above: Performed By: #### C BC #### [facility] [address] [place] [address] Dr. Anthony Bonilla IG % 0.3 % Normal 0.0-0.5 [facility] Comment on above: Performed By: #### C BC #### [facility] [address] [place] [address] Dr. nAthony Bonilla LYMPH # 1.4 103/ul Normal 1.2-3.8 [facility] Comment on above: Performed By: #### C BC #### [facility] [address] [place] [address] Dr. Anthony Bonilla Lymphocytes/100 WBC (Bld) 15.7 % Critically low 20.5-60.0 [facility] Comment on above: Performed By: #### C BC #### [facility] [address] [place] [address] Dr. Anthony Bonilla MANUAL DIFF REQ NO Normal [facility] Comment on above: Performed By: #### C BC #### [facility] [address] [place] [address] Dr. Anthony Bonilla MCH (RBC) [Entitic mass] 30.0 pg Normal 26.7-34.0 [facility] Comment on above: Performed By: #### C BC #### [facility] [address] [place] [address] Dr. Anthony Bonilla MCHC (RBC) [Mass/Vol] 32.3 g/dL Normal 29.9-35.2 [facility] Comment on above: Performed By: #### C BC #### [facility] [address] [place] [address] Dr. Anthony Bonilla MCV (RBC) [Entitic vol] 92.7 fL Normal 81.0-99.0 [facility] Comment on above: Performed By: #### C BC #### [facility] [address] [place] [address] Dr. Anthony Bonilla MONO # 1.1 103/ul Critically high 0.3-0.8 [facility] Comment on above: Performed By: #### C BC #### [facility] [address] [place] [address] Dr. Anthony Bonilla Monocytes/100 WBC (Bld) 12.0 % Normal 1.7-12.0 [facility] Comment on above: Performed By: #### C BC #### [facility] [address] [place] [address] Dr. Anthony Bonilla NEUT # 6.2 103/ul Normal 1.4-6.5 [facility] Comment on above: Performed By: #### C BC #### [facility] [address] [place] [address] Dr. Anthony Bonilla Neutrophils/100 WBC (Bld) 70.6 % Normal 43.0-75.0 [facility] Comment on above: Performed By: #### C BC #### [facility] [address] [address] [address] Anthony Bonilla Platelet mean volume (Bld) [Entitic vol] 9.8 fL Normal 9.5-13.5 [facility] Comment on above: Performed By: #### C BC #### [facility] [address] [address] [address] Anthony Bonilla PLT 305 103/ul Normal 150-450 [facility] Comment on above: Performed By: #### C BC #### [facility] [address] [address] [address] Anthony Bonilla RBC 3.27 106/ul Critically low 4.20-5.40 [facility] Comment on above: Performed By: #### C BC #### [facility] [address] [address] [address] Anthony Bonilla WBC 8.7 103/ul Normal 4.0-11.0 [facility] Comment on above: Performed By: #### C BC #### [facility] [address] [place] [address] Dr. Anthony Bonilla PROF CHEM 8 (BAS METB)on Anion gap [Moles/Vol] 12.2 mmol/L Normal [facility] Comment on above: Performed By: #### U RCX #### [facility] [address] [place] [address] Dr. Anthony Bonilla Calcium [Mass/Vol] 9.1 mg/dL Normal 8.5-10.1 [facility] Comment on above: Performed By: #### U RCX #### [facility] [address] [place] [address] Dr. Anthony Bonilla Chloride [Moles/Vol] 104 mmol/L Normal 98-107 [facility] Comment on above: Performed By: #### U RCX #### [facility] [address] [place] [address] Dr. Anthony Bonilla CO2 [Moles/Vol] 24.4 mmol/L Normal 21.0-32.0 [facility] Comment on above: Performed By: #### U RCX #### [facility] [address] [address] [address] Anthony Bonilla Creatinine [Mass/Vol] 1.20 mg/dL Critically high 0.55-1.02 [facility] Comment on above: Performed By: #### U RCX #### [facility] [address] [address] [address] Anthony Bonilla EGFR-AF GERMAN 52 mL/min/1.73m2 Critically low >=60 [facility] Comment on above: Performed By: #### U RCX #### [facility] [address] [address] [address] Anthony Bonilla EGFR-NON AF GERMAN 43 mL/min/1.73m2 Critically low >=60 [facility] Comment on above: Performed By: #### U RCX #### [facility] [address] [address] [address] Anthony Bonilla Glucose [Mass/Vol] 81 mg/dL Normal 74-106 [facility] Comment on above: Performed By: #### U RCX #### [facility] [address] [address] [address] Anthony Bonilla Potassium [Moles/Vol] 3.6 mmol/L Normal 3.5-5.1 [facility] Comment on above: Performed By: #### U RCX #### [facility] [address] [address] [address] Anthony Bonilla Sodium [Moles/Vol] 137 mmol/L Normal 136-145 [facility] Comment on above: Performed By: #### U RCX #### [facility] [address] [address] [address] Anthony Bonilla Urea nitrogen [Mass/Vol] 21.0 mg/dL Critically high 7.0-18.0 [facility] Comment on above: Performed By: #### U RCX #### [facility] [address] [address] [address] Anthony Bonilla Urea nitrogen/Creatinine [Mass ratio] 17.5 mg/mg Normal [facility] Comment on above: Performed By: #### U RCX #### [facility] [address] [place] [address] Dr. Anthony Bonilla CULTURE URINEon 12-29-2021 CULTURE [...] Trimethoprim/Sulfamethoxa zole <=20 S F Normal [facility] Comment on above: Performed By: #### U RCX #### [facility] [address] [place] [address] Dr. Anthony Bonilla ER URINE PROFILEon Bilirubin Ql (U) SMALL Abnormal NEGATIVE The [facility] Comment on above: Performed By: #### C BC #### [facility] [address] [place] [address] Dr. Anthony Bonilla Clarity (U) SL CLOUDY Abnormal CLEAR [facility] Comment on above: Performed By: #### C BC #### [facility] [address] [place] [address] Dr. Anthony Bonilla Color (U) YELLOW Normal YELLOW [facility] Comment on above: Performed By: #### C BC #### [facility] [address] [place] [address] Dr. Anthony BANGURA A micrscopic examina tion will be performed if indicated. Normal [facility] Comment on above: Performed By: #### C BC #### [facility] [address] [place] [address] Dr. Anthony Bonilla Glucose Ql (U) Negative Normal NEGATIVE [facility] Comment on above: Performed By: #### C BC #### [facility] [address] [place] [address] Dr. Anthony Bonilla Hemoglobin Ql (U) Negative Normal NEGATIVE [facility] Comment on above: Performed By: #### C BC #### [facility] [address] [place] [address] Dr. Anthony Bonilla Ketones Ql (U) TRACE Abnormal NEGATIVE [facility] Comment on above: Performed By: #### C BC #### [facility] [address] [place] [address] Dr. Anthony Bonilla LEUKOCYTES MODERATE Abnormal NEGATIVE [facility] Comment on above: Performed By: #### C BC #### [facility] [address] [place] [address] Dr. Anthony Bonilla Nitrite Ql (U) Positive Abnormal NEGATIVE [facility] Comment on above: Performed By: #### C BC #### [facility] [address] [place] [address] Dr. Anthony Bonilla pH (U) 7.5 [pH] Normal 5-9 [facility] Comment on above: Performed By: #### C BC #### [facility] [address] [place] [address] Dr. Anthony Bonilla Protein (U) [Mass/Vol] 30 mg/dL Abnormal NEGAT JAMAR/ TRACE [facility] Comment on above: Performed By: #### C BC #### [facility] [address] [place] [address] Dr. Anthony Bonilla SPEC GRAVITY 1.020 Normal 1.005-<=1. 025 [facility] Comment on above: Performed By: #### C BC #### [facility] [address] [place] [address] Dr. Anthony Bonilla UR MICRO IND INDICATED Normal [facility] Comment on above: Performed By: #### C BC #### [facility] [address] [place] [address] Dr. Anthony Bonilla Urobilinogen Qn (U) 0.2 {Gen'U}/dL Normal 0.2 - 1. 0 [facility] Comment on above: Performed By: #### C BC #### [facility] [address] [place] [address] Dr. Anthony Bonilla URINE MICROSCOPIC ONLYon BACTERIA TRACE Abnormal NONE SEEN [facility] Comment on above: Performed By: #### C BC #### [facility] [address] [place] [address] Dr. Anthony Bonilla Bacteria identified Cx Nom (U) INDICATED Normal [facility] Comment on above: Performed By: #### C BC #### [facility] [address] [place] [address] Dr. Anthony Bonilla CAST NONE SEEN Normal NONE SEEN [facility] Comment on above: Performed By: #### C BC #### [facility] [address] [place] [address] Dr. Anthony Bonilla Crystals LM Nom (Urine sed) NONE SEEN Normal NONE SEEN [facility] Comment on above: Performed By: #### C BC #### [facility] [address] [place] [address] Dr. Anthony Bonilla Epithelial cells LM Ql (Urine sed) FEW Abnormal NONE SEEN /RARE [facility] Comment on above: Performed By: #### C BC #### [facility] [address] [place] [address] Dr. Anthony Bonilla MUCOUS NONE SEEN Normal NONE SEEN [facility] Comment on above: Performed By: #### C BC #### [facility] [address] [place] [address] Dr. Anthony Bonilla RBC 0-2 Normal 0-2 [facility] Comment on above: Performed By: #### C BC #### [facility] [address] [place] [address] Dr. Anthony Bonilla WBC 5-10 Abnormal NONE SEEN [facility] Comment on above: Performed By: #### C BC #### [facility] [address] [place] [address] Dr. Anthony Bonilla PRBC LEUKOREDUCEDon 11-20-19 PRBC LEUKOREDUCED Cross Match Result Compatible Unit Blood Type A Pos Unit Number [id number] Status Information Transfused Product ID Red Blood Cells Product Code [id number] Normal [facility] Comment on above: Performed By: #### P RBC #### [facility] [address] [place] [address] Dr. Anthony Bonilla CBC AUTO DIFFon 11-10-2021 BASO # 0.0 103/ul Normal 0.0-0.1 [facility] Comment on above: Performed By: #### C BC #### [facility] [address] [place] [address] Dr. Anthony Bonilla Basophils/100 WBC (Bld) 0.7 % Normal 0.2-2.0 [facility] Comment on above: Performed By: #### C BC #### [facility] [address] [place] [address] Dr. Anthony Bonilla EO # 0.2 103/ul Normal 0.0-0.7 [facility] Comment on above: Performed By: #### C BC #### [facility] [address] [place] [address] Dr. Anthony Bonilla Eosinophils/100 WBC (Bld) 2.7 % Normal 0.9-7.0 [facility] Comment on above: Performed By: #### C BC #### [facility] [address] [place] [address] Dr. Anthony Bonilla Erythrocyte distribution width (RBC) [Ratio] 16.3 % Critically high 11.0-15.0 [facility] Comment on above: Performed By: #### C BC #### [facility] [address] [place] [address] Dr. Anthony Bonilla Hematocrit (Bld) [Volume fraction] 29.0 % Critically low 36.0-48.0 [facility] Comment on above: Performed By: #### C BC #### [facility] [address] [place] [address] Dr. Anthony Bonilla Hemoglobin (Bld) [Mass/Vol] 9.4 g/dL Critically low 12.0-16.0 [facility] Comment on above: Performed By: #### C BC #### [facility] [address] [place] [address] Dr. Anthony Bonilla IG # 0.04 10e3/ul Critically high 0.00-0.03 [facility] Comment on above: Performed By: #### C BC #### [facility] [address] [place] [address] Dr. Anthony Bonilla IG % 0.7 % Critically high 0.0-0.5 [facility] Comment on above: Performed By: #### C BC #### [facility] [address] [place] [address] Dr. Anthony Bonilla LYMPH # 1.2 103/ul Normal 1.2-3.8 [facility] Comment on above: Performed By: #### C BC #### [facility] [address] [place] [address] Dr. Anthony Bonilla Lymphocytes/100 WBC (Bld) 21.5 % Normal 20.5-60.0 [facility] Comment on above: Performed By: #### C BC #### [facility] [address] [place] [address] Dr. Anthony Bonilla MANUAL DIFF REQ NO Normal [facility] Comment on above: Performed By: #### C BC #### [facility] [address] [place] [address] Dr. Anthony Bonilla MCH (RBC) [Entitic mass] 32.3 pg Normal 26.7-34.0 [facility] Comment on above: Performed By: #### C BC #### [facility] [address] [place] [address] Dr. Anthony Bonilla MCHC (RBC) [Mass/Vol] 32.4 g/dL Normal 29.9-35.2 [facility] Comment on above: Performed By: #### C BC #### [facility] [address] [address] [address] Anthony Bonilla MCV (RBC) [Entitic vol] 99.7 fL Critically high 81.0-99.0 [facility] Comment on above: Performed By: #### C BC #### [facility] [address] [address] [address] Anthony Bonilla MONO # 0.7 103/ul Normal 0.3-0.8 [facility] Comment on above: Performed By: #### C BC #### [facility] [address] [place] [address] Dr. Anthony Bonilla Monocytes/100 WBC (Bld) 12.6 % Critically high 1.7-12.0 [facility] Comment on above: Performed By: #### C BC #### [facility] [address] [place] [address] Dr. Anthony Bonilla NEUT # 3.4 103/ul Normal 1.4-6.5 [facility] Comment on above: Performed By: #### C BC #### [facility] [address] [place] [address] Dr. Anthony Bonilla Neutrophils/100 WBC (Bld) 61.8 % Normal 43.0-75.0 [facility] Comment on above: Performed By: #### C BC #### [facility] [address] [place] [address] Dr. Anthony Bonilla Platelet mean volume (Bld) [Entitic vol] 9.0 fL Critically low 9.5-13.5 [facility] Comment on above: Performed By: #### C BC #### [facility] [address] [place] [address] Dr. Anthony Bonilla PLT 429 103/ul Normal 150-450 [facility] Comment on above: Performed By: #### C BC #### [facility] [address] [place] [address] Dr. Anthony Bonilla RBC 2.91 106/ul Critically low 4.20-5.40 [facility] Comment on above: Performed By: #### C BC #### [facility] [address] [address] [address] Anthony Bonilla WBC 5.5 103/ul Normal 4.0-11.0 [facility] Comment on above: Performed By: #### C BC #### [facility] [address] [address] [address] Anthony Bonilla PROF CHEM 8 (BAS METB)on Anion gap [Moles/Vol] 11.0 mmol/L Normal [facility] Comment on above: Performed By: #### B MP #### [facility] [address] [address] [address] Anthony Bonilla Calcium [Mass/Vol] 9.2 mg/dL Normal 8.5-10.1 [facility] Comment on above: Performed By: #### B MP #### [facility] [address] [address] [address] Anthony Bonilla Chloride [Moles/Vol] 107 mmol/L Normal 98-107 [facility] Comment on above: Performed By: #### B MP #### [facility] [address] [address] [address] Anthony Bonilla CO2 [Moles/Vol] 27.4 mmol/L Normal 21.0-32.0 [facility] Comment on above: Performed By: #### B MP #### [facility] [address] [address] [address] Anthony Bonilla Creatinine [Mass/Vol] 1.12 mg/dL Critically high 0.55-1.02 [facility] Comment on above: Performed By: #### B MP #### [facility] [address] [address] [address] Anthony Bonilla EGFR-AF GERMAN 56 mL/min/1.73m2 Critically low >=60 [facility] Comment on above: Performed By: #### B MP #### [facility] [address] [address] [address] Anthony Bonilla EGFR-NON AF GERMAN 46 mL/min/1.73m2 Critically low >=60 [facility] Comment on above: Performed By: #### B MP #### [facility] [address] [address] [address] Anthony Bonilla Glucose [Mass/Vol] 89 mg/dL Normal 74-106 [facility] Comment on above: Performed By: #### B MP #### [facility] [address] [address] [address] Anthony Bonilla Potassium [Moles/Vol] 4.4 mmol/L Normal 3.5-5.1 [facility] Comment on above: Performed By: #### B MP #### [facility] [address] [address] [address] Anthony Bonilla Sodium [Moles/Vol] 141 mmol/L Normal 136-145 [facility] Comment on above: Performed By: #### B MP #### [facility] [address] [address] [address] Anthony Bonilla Urea nitrogen [Mass/Vol] 18.0 mg/dL Normal 7.0-18.0 [facility] Comment on above: Performed By: #### B MP #### [facility] [address] [address] [address] Anthony Bonilla Urea nitrogen/Creatinine [Mass ratio] 16.1 mg/mg Normal [facility] Comment on above: Performed By: #### B MP #### [facility] [address] [address] [address] Anthony Bonilla CBC AUTO DIFFon 11-04-2021 BASO # 0.0 103/ul Normal 0.0-0.1 [facility] Comment on above: Performed By: #### C BC #### [facility] [address] [address] [address] Anthony Bonilla Basophils/100 WBC (Bld) 0.2 % Normal 0.2-2.0 [facility] Comment on above: Performed By: #### C BC #### [facility] [address] [address] [address] Anthony Bonilla EO # 0.1 103/ul Normal 0.0-0.7 [facility] Comment on above: Performed By: #### C BC #### [facility] [address] [address] [address] Anthony Bonilla Eosinophils/100 WBC (Bld) 0.8 % Critically low 0.9-7.0 [facility] Comment on above: Performed By: #### C BC #### [facility] [address] [place] [address] Dr. Anthony Bonilla Erythrocyte distribution width (RBC) [Ratio] 16.7 % Critically high 11.0-15.0 [facility] Comment on above: Performed By: #### C BC #### [facility] [address] [place] [address] Dr. Anthony Bonilla Hematocrit (Bld) [Volume fraction] 25.6 % Critically low 36.0-48.0 [facility] Comment on above: Performed By: #### C BC #### [facility] [address] [place] [address] Dr. Anthony Bonilal Hemoglobin (Bld) [Mass/Vol] 8.5 g/dL Critically low 12.0-16.0 [facility] Comment on above: Performed By: #### C BC #### [facility] [address] [place] [address] Dr. Anthony Bonilla IG # 0.05 10e3/ul Critically high 0.00-0.03 [facility] Comment on above: Performed By: #### C BC #### [facility] [address] [place] [address] Dr. Anthony Bonilla IG % 0.5 % Normal 0.0-0.5 [facility] Comment on above: Performed By: #### C BC #### [facility] [address] [place] [address] Dr. Anthony Bonilla LYMPH # 0.6 103/ul Critically low 1.2-3.8 [facility] Comment on above: Performed By: #### C BC #### [facility] [address] [place] [address] Dr. Anthony Bonilla Lymphocytes/100 WBC (Bld) 6.2 % Critically low 20.5-60.0 [facility] Comment on above: Performed By: #### C BC #### [facility] [address] [place] [address] Dr. Anthony Bonilla MANUAL DIFF REQ NO Normal [facility] Comment on above: Performed By: #### C BC #### [facility] [address] [place] [address] Dr. Anthony Bonilla MCH (RBC) [Entitic mass] 31.6 pg Normal 26.7-34.0 [facility] Comment on above: Performed By: #### C BC #### [facility] [address] [place] [address] Dr. Anthony Bonilla MCHC (RBC) [Mass/Vol] 33.2 g/dL Normal 29.9-35.2 [facility] Comment on above: Performed By: #### C BC #### [facility] [address] [place] [address] Dr. Anthony Bonilla MCV (RBC) [Entitic vol] 95.2 fL Normal 81.0-99.0 [facility] Comment on above: Performed By: #### C BC #### [facility] [address] [place] [address] Dr. Anthony Bonilla MONO # 0.6 103/ul Normal 0.3-0.8 [facility] Comment on above: Performed By: #### C BC #### [facility] [address] [place] [address] Dr. Anthony Bonilla Monocytes/100 WBC (Bld) 6.1 % Normal 1.7-12.0 [facility] Comment on above: Performed By: #### C BC #### [facility] [address] [place] [address] Dr. Anthony Bonilla NEUT # 8.8 103/ul Critically high 1.4-6.5 [facility] Comment on above: Performed By: #### C BC #### [facility] [address] [place] [address] Dr. Anthony Bonilla Neutrophils/100 WBC (Bld) 86.2 % Critically high 43.0-75.0 [facility] Comment on above: Performed By: #### C BC #### [facility] [address] [address] [address] Anthony Bonilla Platelet mean volume (Bld) [Entitic vol] 9.8 fL Normal 9.5-13.5 [facility] Comment on above: Performed By: #### C BC #### [facility] [address] [id number] [address] Anthony Bonilla PLT 156 103/ul Normal 150-450 [facility] Comment on above: Performed By: #### C BC #### [facility] [address] [address] [address] Anthony Bonilla RBC 2.69 106/ul Critically low 4.20-5.40 [facility] Comment on above: Performed By: #### C BC #### [facility] [address] [place] [address] Dr. Anthony Bonilla WBC 10.3 103/ul Normal 4.0-11.0 [facility] Comment on above: Performed By: #### C BC #### [facility] [address] [address] [address] Anthony Bonilla CULTURE URINEon 11-04-2021 CULTURE [...] Trimethoprim/Sulfamethoxa zole <=20 S F Normal [facility] Comment on above: Performed By: #### U RCX #### [facility] [address] [place] [address] Dr. Anthony Bonilla PROF CHEM 8 (BAS METB)on Anion gap [Moles/Vol] 12.9 mmol/L Normal Th e [facility] Comment on above: Performed By: #### U RCX #### [facility] [address] [address] [address] Anthony Bonilla Calcium [Mass/Vol] 8.6 mg/dL Normal 8.5-10.1 [facility] Comment on above: Performed By: #### U RCX #### [facility] [address] [address] [address] Anthony Bonilla Chloride [Moles/Vol] 108 mmol/L Critically high 98-107 [facility] Comment on above: Performed By: #### U RCX #### [facility] [address] [place] [address] Dr. Anthony Bonilla CO2 [Moles/Vol] 23.1 mmol/L Normal 21.0-32.0 [facility] Comment on above: Performed By: #### U RCX #### [facility] [address] [place] [address] Dr. Anthony Bonilla Creatinine [Mass/Vol] 0.98 mg/dL Normal 0.55-1.02 [facility] Comment on above: Performed By: #### U RCX #### [facility] [address] [place] [address] Dr. Anthony oBnilla EGFR-AF GERMAN >60 Normal >=60 [facility] Comment on above: Performed By: #### U RCX #### [facility] [address] [place] [address] Dr. Anthony Bonilla EGFR-NON AF GERMAN 54 mL/min/1.73m2 Critically low >=60 [facility] Comment on above: Performed By: #### U RCX #### [facility] [address] [address] [address] Anthony Bonilla Glucose [Mass/Vol] 86 mg/dL Normal 74-106 [facility] Comment on above: Performed By: #### U RCX #### [facility] [address] [place] [address] Dr. Anthony Bonilla Potassium [Moles/Vol] 4.0 mmol/L Normal 3.5-5.1 [facility] Comment on above: Performed By: #### U RCX #### [facility] [address] [place] [address] Dr. Anthony Bonilla Sodium [Moles/Vol] 140 mmol/L Normal 136-145 [facility] Comment on above: Performed By: #### U RCX #### [facility] [address] [place] [address] Dr. Anthony Bonilla Urea nitrogen [Mass/Vol] 31.0 mg/dL Critically high 7.0-18.0 [facility] Comment on above: Performed By: #### U RCX #### [facility] [address] [place] [address] Dr. Anthony Bonilla Urea nitrogen/Creatinine [Mass ratio] 31.6 mg/mg Normal [facility] Comment on above: Performed By: #### U RCX #### [facility] [address] [place] [address] Dr. Anthony Bonilla CBC AUTO DIFFon 11-03-2021 BASO # 0.0 103/ul Normal 0.0-0.1 [facility] Comment on above: Performed By: #### C BC #### [facility] [address] [place] [address] Dr. Anthony Bonilla Basophils/100 WBC (Bld) 0.3 % Normal 0.2-2.0 [facility] Comment on above: Performed By: #### C BC #### [facility] [address] [place] [address] Dr. Anthony Bonilla EO # 0.1 103/ul Normal 0.0-0.7 [facility] Comment on above: Performed By: #### C BC #### [facility] [address] [place] [address] Dr. Anthony Bonilla Eosinophils/100 WBC (Bld) 0.6 % Critically low 0.9-7.0 [facility] Comment on above: Performed By: #### C BC #### [facility] [address] [place] [address] Dr. Anthony Bonilla Erythrocyte distribution width (RBC) [Ratio] 14.0 % Normal 11.0-15.0 [facility] Comment on above: Performed By: #### C BC #### [facility] [address] [place] [address] Dr. Anthony Bonilla Hematocrit (Bld) [Volume fraction] 23.1 % Critically low 36.0-48.0 [facility] Comment on above: Result Comment: Flui ds given Performed By: #### C BC #### [facility] [address] [place] [address] Dr. Anthony Bonilla Hemoglobin (Bld) [Mass/Vol] 7.6 g/dL Critically low 12.0-16.0 [facility] Comment on above: Performed By: #### C BC #### [facility] [address] [place] [address] Dr. Anthony Bonilla IG # 0.07 10e3/ul Critically high 0.00-0.03 [facility] Comment on above: Performed By: #### C BC #### [facility] [address] [place] [address] Dr. Anthony Bonilla IG % 0.6 % Critically high 0.0-0.5 [facility] Comment on above: Performed By: #### C BC #### [facility] [address] [place] [address] Dr. Anthony Bonilla LYMPH # 0.7 103/ul Critically low 1.2-3.8 [facility] Comment on above: Performed By: #### C BC #### [facility] [address] [place] [address] Dr. Anthony Bonilla Lymphocytes/100 WBC (Bld) 5.7 % Critically low 20.5-60.0 [facility] Comment on above: Performed By: #### C BC #### [facility] [address] [place] [address] Dr. Anthony Bonilla MANUAL DIFF REQ NO Normal [facility] Comment on above: Performed By: #### C BC #### [facility] [address] [place] [address] Dr. Anthony Bonilla MCH (RBC) [Entitic mass] 32.6 pg Normal 26.7-34.0 [facility] Comment on above: Performed By: #### C BC #### [facility] [address] [place] [address] Dr. Anthony Bonilla MCHC (RBC) [Mass/Vol] 32.9 g/dL Normal 29.9-35.2 [facility] Comment on above: Performed By: #### C BC #### [facility] [address] [place] [address] Dr. Anthony Bonilla MCV (RBC) [Entitic vol] 99.1 fL Critically high 81.0-99.0 [facility] Comment on above: Performed By: #### C BC #### [facility] [address] [place] [address] Dr. Anthony Bonilla MONO # 0.8 103/ul Normal 0.3-0.8 [facility] Comment on above: Performed By: #### C BC #### [facility] [address] [place] [address] Dr. Anthony Bonilla Monocytes/100 WBC (Bld) 6.8 % Normal 1.7-12.0 [facility] Comment on above: Performed By: #### C BC #### [facility] [address] [place] [address] Dr. Anthony Bonilla NEUT # 9.8 103/ul Critically high 1.4-6.5 [facility] Comment on above: Performed By: #### C BC #### [facility] [address] [place] [address] Dr. Anthony Bonilla Neutrophils/100 WBC (Bld) 86.0 % Critically high 43.0-75.0 [facility] Comment on above: Performed By: #### C BC #### [facility] [address] [place] [address] Dr. Anthony Bonilla Platelet mean volume (Bld) [Entitic vol] 9.5 fL Normal 9.5-13.5 [facility] Comment on above: Performed By: #### C BC #### [facility] [address] [place] [address] Dr. Anthony Bonilla PLT 160 103/ul Normal 150-450 [facility] Comment on above: Performed By: #### C BC #### [facility] [address] [place] [address] Dr. Anthony Bonilla RBC 2.33 106/ul Critically low 4.20-5.40 [facility] Comment on above: Performed By: #### C BC #### [facility] [address] [address] [address] Anthony Bonilla WBC 11.4 103/ul Critically high 4.0-11.0 [facility] Comment on above: Performed By: #### C BC #### [facility] [address] [place] [address] Dr. Anthony Bonilla HEMOGLOBIN AND HEMATOCRITon 11-03-2021 Hematocrit (Bld) [Volume fraction] 27.0 % Critically low 36.0-48.0 [facility] Comment on above: Performed By: #### U RCX #### [facility] [address] [place] [address] Dr. Anthony Bonilla Hemoglobin (Bld) [Mass/Vol] 9.1 g/dL Critically low 12.0-16.0 [facility] Comment on above: Performed By: #### U RCX #### [facility] [address] [place] [address] Dr. Anthony Bonilla OCC BLD IMMUNO SCREENon 10-10 OCCULT BLOOD Positive Abnormal NEGATIVE [facility] Comment on above: Performed By: #### C BC #### [facility] [address] [place] [address] Dr. Anthony Bonilla PROF CHEM 8 (BAS METB)on Anion gap [Moles/Vol] 10.7 mmol/L Normal [facility] Comment on above: Performed By: #### C BC #### [facility] [address] [place] [address] Dr. Anthony Bonilla Calcium [Mass/Vol] 8.6 mg/dL Normal 8.5-10.1 [facility] Comment on above: Performed By: #### C BC #### [facility] [address] [address] [address] Anthony Bonilla Chloride [Moles/Vol] 107 mmol/L Normal 98-107 [facility] Comment on above: Performed By: #### C BC #### [facility] [address] [address] [address] Anthony Bonilla CO2 [Moles/Vol] 24.4 mmol/L Normal 21.0-32.0 [facility] Comment on above: Performed By: #### C BC #### [facility] [address] [address] [address] Anthony Bonilla Creatinine [Mass/Vol] 0.98 mg/dL Normal 0.55-1.02 [facility] Comment on above: Performed By: #### C BC #### [facility] [address] [place] [address] Dr. Anthony Bonilla EGFR-AF GERMAN >60 Normal >=60 The [facility] Comment on above: Performed By: #### C BC #### [facility] [address] [address] [address] Anthony Bonilla EGFR-NON AF GERMAN 54 mL/min/1.73m2 Critically low >=60 The [facility] Comment on above: Performed By: #### C BC #### [facility] [address] [place] [address] Dr. Anthony Bonilla Glucose [Mass/Vol] 98 mg/dL Normal 74-106 The [facility] Comment on above: Performed By: #### C BC #### [facility] [address] [address] [address] Anthony Bonilla Potassium [Moles/Vol] 4.1 mmol/L Normal 3.5-5.1 [facility] Comment on above: Performed By: #### C BC #### [facility] [address] [place] [address] Dr. Anthony Bonilla Sodium [Moles/Vol] 138 mmol/L Normal 136-145 [facility] Comment on above: Performed By: #### C BC #### [facility] [address] [place] [address] Dr. Anthony Bonilla Urea nitrogen [Mass/Vol] 43.0 mg/dL Critically high 7.0-18.0 [facility] Comment on above: Performed By: #### C BC #### [facility] [address] [place] [address] Dr. Anthony Bonilla Urea nitrogen/Creatinine [Mass ratio] 43.9 mg/mg Normal [facility] Comment on above: Performed By: #### C BC #### [facility] [address] [place] [address] Dr. Anthony Bonilla TYPE AND SCREENon 11-03-2021 TYPE AND SCREEN Negative Normal [facility] Comment on above: Performed By: #### C BC #### [facility] [address] [place] [address] Dr. Anthony Bonilla CBC AUTO DIFFon 11-02-2021 BASO # 0.0 103/ul Normal 0.0-0.1 [facility] Comment on above: Performed By: #### U RCX #### [facility] [address] [place] [address] Dr. Anthony Bonilla Basophils/100 WBC (Bld) 0.3 % Normal 0.2-2.0 [facility] Comment on above: Performed By: #### U RCX #### [facility] [address] [place] [address] Dr. Anthony Bonilla EO # 0.0 103/ul Normal 0.0-0.7 [facility] Comment on above: Performed By: #### U RCX #### [facility] [address] [place] [address] Dr. Anthony Bonlila Eosinophils/100 WBC (Bld) 0.1 % Critically low 0.9-7.0 [facility] Comment on above: Performed By: #### U RCX #### [facility] [address] [place] [address] Dr. Anthony Bonilla Erythrocyte distribution width (RBC) [Ratio] 13.9 % Normal 11.0-15.0 [facility] Comment on above: Performed By: #### U RCX #### [facility] [address] [place] [address] Dr. Anthony Bonilla Hematocrit (Bld) [Volume fraction] 31.8 % Critically low 36.0-48.0 [facility] Comment on above: Performed By: #### U RCX #### [facility] [address] [place] [address] Dr. Anthony Bonilla Hemoglobin (Bld) [Mass/Vol] 10.5 g/dL Critically low 12.0-16.0 [facility] Comment on above: Performed By: #### U RCX #### [facility] [address] [place] [address] Dr. Anthony Bonilla IG # 0.07 10e3/ul Critically high 0.00-0.03 [facility] Comment on above: Performed By: #### U RCX #### [facility] [address] [place] [address] Dr. Anthony Bonilla IG % 0.5 % Normal 0.0-0.5 [facility] Comment on above: Performed By: #### U RCX #### [facility] [address] [place] [address] Dr. Anthony Bonilla LYMPH # 0.9 103/ul Critically low 1.2-3.8 [facility] Comment on above: Performed By: #### U RCX #### [facility] [address] [place] [address] Dr. Anthony Bonilla Lymphocytes/100 WBC (Bld) 6.1 % Critically low 20.5-60.0 [facility] Comment on above: Performed By: #### U RCX #### [facility] [address] [place] [address] Dr. Anthony Bonilla MANUAL DIFF REQ NO Normal [facility] Comment on above: Performed By: #### U RCX #### [facility] [address] [place] [address] Dr. Anthony Bonilla MCH (RBC) [Entitic mass] 32.7 pg Normal 26.7-34.0 [facility] Comment on above: Performed By: #### U RCX #### [facility] [address] [place] [address] Dr. Anthony Bonilla MCHC (RBC) [Mass/Vol] 33.0 g/dL Normal 29.9-35.2 [facility] Comment on above: Performed By: #### U RCX #### [facility] [address] [address] [address] Anthony Bonilla MCV (RBC) [Entitic vol] 99.1 fL Critically high 81.0-99.0 [facility] Comment on above: Performed By: #### U RCX #### [facility] [address] [address] [address] Anthony Bonilla MONO # 1.0 103/ul Critically high 0.3-0.8 The [facility] Comment on above: Performed By: #### U RCX #### [facility] [address] [place] [address] Dr. Anthony Bonilla Monocytes/100 WBC (Bld) 6.8 % Normal 1.7-12.0 [facility] Comment on above: Performed By: #### U RCX #### [facility] [address] [place] [address] Dr. Anthony Bonilla NEUT # 12.1 103/ul Critically high 1.4-6.5 The [facility] Comment on above: Performed By: #### U RCX #### [facility] [address] [place] [address] Dr. Anthony Bonilla Neutrophils/100 WBC (Bld) 86.2 % Critically high 43.0-75.0 [facility] Comment on above: Performed By: #### U RCX #### [facility] [address] [place] [address] Dr. Anthony Bonilla Platelet mean volume (Bld) [Entitic vol] 9.8 fL Normal 9.5-13.5 [facility] Comment on above: Performed By: #### U RCX #### [facility] [address] [place] [address] Dr. Anthony Bonilla PLT 175 103/ul Normal 150-450 [facility] Comment on above: Performed By: #### U RCX #### [facility] [address] [place] [address] Dr. Anthony Bonilla RBC 3.21 106/ul Critically low 4.20-5.40 [facility] Comment on above: Performed By: #### U RCX #### [facility] [address] [address] [address] Anthony Bonilla WBC 14.0 103/ul Critically high 4.0-11.0 [facility] Comment on above: Performed By: #### U RCX #### [facility] [address] [address] [address] HEAD WO CONon [...] HERNANDO HAMLIN Date: 2021-11-01 22:36 Normal [facility] PROF CHEM 8 (BAS METB)on Anion gap [Moles/Vol] 12.2 mmol/L Normal [facility] Comment on above: Performed By: #### C BC #### [facility] [address] [address] [address] Anthony Bonilla Calcium [Mass/Vol] 8.7 mg/dL Normal 8.5-10.1 [facility] Comment on above: Performed By: #### C BC #### [facility] [address] [address] [address] Anthony Bonilla Chloride [Moles/Vol] 103 mmol/L Normal 98-107 [facility] Comment on above: Performed By: #### C BC #### [facility] [address] [address] [address] Anthony Bonilla CO2 [Moles/Vol] 25.7 mmol/L Normal 21.0-32.0 [facility] Comment on above: Performed By: #### C BC #### [facility] [address] [address] [address] Anthony Bonilla Creatinine [Mass/Vol] 1.08 mg/dL Critically high 0.55-1.02 [facility] Comment on above: Performed By: #### C BC #### [facility] [address] [address] [address] Anthony Bonilla EGFR-AF GERMAN 58 mL/min/1.73m2 Critically low >=60 [facility] Comment on above: Performed By: #### C BC #### [facility] [address] [address] [address] Anthony Bonilla EGFR-NON AF GERMAN 48 mL/min/1.73m2 Critically low >=60 [facility] Comment on above: Performed By: #### C BC #### [facility] [address] [address] [address] Anthony Bonilla Glucose [Mass/Vol] 84 mg/dL Normal 74-106 [facility] Comment on above: Performed By: #### C BC #### [facility] [address] [address] [address] Anthony Bonilla Potassium [Moles/Vol] 4.9 mmol/L Normal 3.5-5.1 [facility] Comment on above: Performed By: #### C BC #### [facility] [address] [address] [address] Anthony oBnilla Sodium [Moles/Vol] 136 mmol/L Normal 136-145 [facility] Comment on above: Performed By: #### C BC #### [facility] [address] [address] [address] Anthony Bonilla Urea nitrogen [Mass/Vol] 33.0 mg/dL Critically high 7.0-18.0 [facility] Comment on above: Performed By: #### C BC #### [facility] [address] [place], [place] [address] Dr. Anthony Bonilla Urea nitrogen/Creatinine [Mass ratio] 30.6 mg/mg Normal [facility] Comment on above: Performed By: #### C BC #### [facility] [address] [place], [place] [address] Dr. Anthony Bonilla XR CHEST 1 Von [...] GIANA HOLLY Date: 2021-11-01 22:05 Normal [facility] CARDIAC DARWIN ADMITon 022 CK [Catalytic activity/Vol] 92 U/L Normal 26-192 [facility] Comment on above: Performed By: #### C BC #### [facility] [address] [place], [place] [id number] Dr. Anthony Bonilla CK.MB [Mass/Vol] 1.73 ng/mL Normal <=3.60 The [facility] Comment on above: Performed By: #### C BC #### [facility] [address] [place], [place] [id number] Dr. Anthony Bonilla HSTROP 20.0 pg/mL Normal 4.0-51.3 [facility] Comment on above: Result Comment: CUT- OFF POINTS HAVE BEEN ESTABLISHED BASED ON THE FOURTH UNIVERSAL DEFINITIONS OF MYOCARDIAL INFARCTION. THE UPPER REFERENCE LIMIT (URL) OF TROPONIN, DEFINED THE 99TH PERCENTILE OF cTnI DISTRIBUTION IN A REFERENCE POPULATION, HAS BEEN CONFIRMED THE DECISION THRESHOLD FOR LA DIAGNOSIS. Performed By: #### C BC #### [facility] [address] [place] [address] [address] [address] Anthony Bonilla CANDIDA 58 ng/mL Normal 9-82 [facility] Comment on above: Performed By: #### C BC #### [facility] [address] [address] [address] Anthony Bonilla CBC AUTO DIFFon 11-01-2021 BASO # 0.0 103/ul Normal 0.0-0.1 [facility] Comment on above: Performed By: #### U RCX #### [facility] [address] [place] [address] Dr. Anthony Bonilla Basophils/100 WBC (Bld) 0.2 % Normal 0.2-2.0 [facility] Comment on above: Performed By: #### U RCX #### [facility] [address] [place] [address] Dr. Anthony Bonilla EO # 0.0 103/ul Normal 0.0-0.7 [facility] Comment on above: Performed By: #### U RCX #### [facility] [address] [place] [address] Dr. Anthony Bonilla Eosinophils/100 WBC (Bld) 0.0 % Critically low 0.9-7.0 [facility] Comment on above: Performed By: #### U RCX #### [facility] [address] [place] [address] Dr. Anthony Bonilla Erythrocyte distribution width (RBC) [Ratio] 14.1 % Normal 11.0-15.0 [facility] Comment on above: Performed By: #### U RCX #### [facility] [address] [place] [address] Dr. Anthony Bonilla Hematocrit (Bld) [Volume fraction] 36.0 % Normal 36.0-48.0 [facility] Comment on above: Performed By: #### U RCX #### [facility] [address] [place] [address] Dr. Anthony Bonilla Hemoglobin (Bld) [Mass/Vol] 12.1 g/dL Normal 12.0-16.0 [facility] Comment on above: Performed By: #### U RCX #### [facility] [address] [place] [address] Dr. Anthony Bonilla IG # 0.11 10e3/ul Critically high 0.00-0.03 [facility] Comment on above: Performed By: #### U RCX #### [facility] [address] [address] [address] Anthony Bonilla IG % 0.5 % Normal 0.0-0.5 [facility] Comment on above: Performed By: #### U RCX #### [facility] [address] [address] [address] Anthony Bonilla LYMPH # 0.7 103/ul Critically low 1.2-3.8 [facility] Comment on above: Performed By: #### U RCX #### [facility] [address] [address] [address] Anthony Bonilla Lymphocytes/100 WBC (Bld) 3.2 % Critically low 20.5-60.0 [facility] Comment on above: Performed By: #### U RCX #### [facility] [address] [place] [address] Dr. Anthony Bonilla MANUAL DIFF REQ NO Normal [facility] Comment on above: Performed By: #### U RCX #### [facility] [address] [address] [address] Anthony Bonilla MCH (RBC) [Entitic mass] 33.0 pg Normal 26.7-34.0 [facility] Comment on above: Performed By: #### U RCX #### [facility] [address] [place] [address] Dr. Anthony Bonilla MCHC (RBC) [Mass/Vol] 33.6 g/dL Normal 29.9-35.2 [facility] Comment on above: Performed By: #### U RCX #### [facility] [address] [address] [address] Anthony Bonilla MCV (RBC) [Entitic vol] 98.1 fL Normal 81.0-99.0 [facility] Comment on above: Performed By: #### U RCX #### [facility] [address] [address] [address] Anthony Bonilla MONO # 1.1 103/ul Critically high 0.3-0.8 [facility] Comment on above: Performed By: #### U RCX #### [facility] [address] [address] [address] Anthony Bonilla Monocytes/100 WBC (Bld) 4.8 % Normal 1.7-12.0 [facility] Comment on above: Performed By: #### U RCX #### [facility] [address] [address] [address] Anthony Bonilla NEUT # 20.3 103/ul Critically high 1.4-6.5 [facility] Comment on above: Performed By: #### U RCX #### [facility] [address] [address] [address] Anthony Bonilla Neutrophils/100 WBC (Bld) 91.3 % Critically high 43.0-75.0 [facility] Comment on above: Performed By: #### U RCX #### [facility] [address] [place] [address] Dr. Anthony Bonilla Platelet mean volume (Bld) [Entitic vol] 10.8 fL Normal 9.5-13.5 [facility] Comment on above: Performed By: #### U RCX #### [facility] [address] [place] [address] Dr. Anthony Bonilla PLT 179 103/ul Normal 150-450 [facility] Comment on above: Performed By: #### U RCX #### [facility] [address] [place] [address] Dr. Anthony Bonilla RBC 3.67 106/ul Critically low 4.20-5.40 [facility] Comment on above: Performed By: #### U RCX #### [facility] [address] [place] [address] Dr. Anthony Bonilla WBC 22.2 103/ul Critically high 4.0-11.0 The [facility] Comment on above: Performed By: #### U RCX #### [facility] [address] [place] [address] Dr. Anthony Bonilla CULTURE BLOODon 11-01-2021 Microscopic examination of blood, culture Culture Observations: NO GROWTH AT 5 DAYS. Normal [facility] Comment on above: Performed By: #### B LDCX2 #### [facility] [address] [place] [address] Dr. Anthony Bonilla Performed By: #### C BC #### [facility] [address] [place] [address] Dr. Anthony Bonilla [facility]10 SARS-CoV-2 (COVID-19) RNA OH+probe Ql (Unsp spec) Detected Critically abnormal NOT DETECTED [facility] Comment on above: Result Comment: This test is not yet approved or cleared by the [place] FDA. When there are no FDA-approved or cleared tests available, and other criteria are met, FDA can make tests available under an emergency access mechanism called an Emergency Use Authorization (EUA). The EUA for this test is supported by the Neurobiologist of Health and Human Service's declaration that [...] used). Performed By: #### C BC #### [facility] [address] [place] [address] Dr. Anthony Bonilla ER URINE PROFILEon Bilirubin Ql (U) Negative Normal NEGATIVE The [facility] Comment on above: Performed By: #### U RCX #### [facility] [address] [place] [address] Dr. Anthony Bonilla Clarity (U) CLEAR Normal CLEAR [facility] Comment on above: Performed By: #### U RCX #### [facility] [address] [place] [address] Dr. Anthony Bonilla Color (U) LT. YELLOW Normal YELLOW [facility] Comment on above: Performed By: #### U RCX #### [facility] [address] [place] [address] Dr. Anthony Bonilla ERUAHD A micrscopic examina tion will be performed if indicated. Normal [facility] Comment on above: Performed By: #### U RCX #### [facility] [address] [address] [address] Anthony Bonilla Glucose Ql (U) Negative Normal NEGATIVE [facility] Comment on above: Performed By: #### U RCX #### [facility] [address] [address] [address] Anthony Bonilla Hemoglobin Ql (U) TRACE-INTACT Abnormal NEGATIVE [facility] Comment on above: Performed By: #### U RCX #### [facility] [address] [place] [address] Dr. Anthony Bonilla Ketones Ql (U) Negative Normal NEGATIVE [facility] Comment on above: Performed By: #### U RCX #### [facility] [address] [place] [address] Dr. Anthony Bonilla LEUKOCYTES Negative Normal NEGATIVE [facility] Comment on above: Performed By: #### U RCX #### [facility] [address] [place] [address] Dr. Anthony Bonilla Nitrite Ql (U) Negative Normal NEGATIVE [facility] Comment on above: Performed By: #### U RCX #### [facility] [address] [place] [address] Dr. Anthony Bonilla pH (U) 6.0 [pH] Normal 5-9 [facility] Comment on above: Performed By: #### U RCX #### [facility] [address] [place] [address] Dr. Anthony Bonilla SPEC GRAVITY 1.020 Normal 1.005-<=1. 025 [facility] Comment on above: Performed By: #### U RCX #### [facility] [address] [place] [address] Dr. Anthony Bonilla UA PROTEIN Negative Normal NEGATIVE/ TRACE [facility] Comment on above: Performed By: #### U RCX #### [facility] [address] [place] [address] Dr. Anthony Bonilla UR MICRO IND INDICATED Normal [facility] Comment on above: Performed By: #### U RCX #### [facility] [address] [place] [address] Dr. Anthony Bonilla Urobilinogen Qn (U) 1.0 {Gen'U}/dL Normal 0.2 - 1. 0 [facility] Comment on above: Performed By: #### U RCX #### [facility] [address] [address] [address] Anthony Bonilla LACTATE/LACTIC ACIDon 2021 Lactate [Moles/Vol] 1.6 mmol/L Normal 0.4-1.9 [facility] Comment on above: Performed By: #### C BC #### [facility] [address] [address] [address] Anthony Bonilla PROF 14(COMP METB)on 022 Albumin [Mass/Vol] 3.2 g/dL Critically low 3.4-5.0 [facility] Comment on above: Performed By: #### C BC #### [facility] [address] [place] [address] Dr. Anthony Bonilla Albumin/Globulin [Mass ratio] 0.9 {ratio} Normal [facility] Comment on above: Performed By: #### C BC #### [facility] [address] [address] [address] Anthony Bonilla ALP [Catalytic activity/Vol] 26 U/L Critically low 46-116 [facility] Comment on above: Performed By: #### C BC #### [facility] [address] [address] [address] Anthony Bonilla ALT [Catalytic activity/Vol] 32 U/L Normal 14-59 [facility] Comment on above: Performed By: #### C BC #### [facility] [address] [address] [address] Anthony Bonilla Anion gap [Moles/Vol] 11.5 mmol/L Normal [facility] Comment on above: Performed By: #### C BC #### [facility] [address] [address] [address] Anthony Bonilla AST [Catalytic activity/Vol] 16 U/L Normal 15-37 [facility] Comment on above: Performed By: #### C BC #### [facility] [address] [address] [address] Anthony Bonilla Bilirubin [Mass/Vol] 1.2 mg/dL Critically high 0.2-1.0 [facility] Comment on above: Performed By: #### C BC #### [facility] [address] [address] [address] Anthony Bonilla Calcium [Mass/Vol] 9.0 mg/dL Normal 8.5-10.1 [facility] Comment on above: Performed By: #### C BC #### [facility] [address] [address] [address] Anthony Bonilla Chloride [Moles/Vol] 102 mmol/L Normal 98-107 [facility] Comment on above: Performed By: #### C BC #### [facility] [facility] [address] [address] [address] Anthony Bonilla CO2 [Moles/Vol] 25.2 mmol/L Normal 21.0-32.0 [facility] Comment on above: Performed By: #### C BC #### [facility] [address] [address] [address] Anthony Bonilla Creatinine [Mass/Vol] 1.25 mg/dL Critically high 0.55-1.02 [facility] Comment on above: Performed By: #### C BC #### [facility] [address] [address] [address] Anthony Bonilla EGFR-AF GERMAN 49 mL/min/1.73m2 Critically low >=60 [facility] Comment on above: Performed By: #### C BC #### [facility] [address] [address] [address] Anthony Bonilla EGFR-NON AF GERMAN 41 mL/min/1.73m2 Critically low >=60 [facility] Comment on above: Performed By: #### C BC #### [facility] [address] [address] [address] Anthony Bonilla Globulin (S) [Mass/Vol] 3.4 g/dL Normal [facility] Comment on above: Performed By: #### C BC #### [facility] [address] [address] [address] Anthony Bonilla Glucose [Mass/Vol] 102 mg/dL Normal 74-106 [facility] Comment on above: Performed By: #### C BC #### [facility] [address] [address] [address] Anthony Bonilla Potassium [Moles/Vol] 4.7 mmol/L Normal 3.5-5.1 [facility] Comment on above: Performed By: #### C BC #### [facility] [address] [address] [address] Anthony Bonilla Protein [Mass/Vol] 6.6 g/dL Normal 6.4-8.2 [facility] Comment on above: Performed By: #### C BC #### [facility] [address] [address] [address] Anthony Bonilla Sodium [Moles/Vol] 134 mmol/L Critically low 136-145 [facility] Comment on above: Performed By: #### C BC #### [facility] [address] [address] [address] Anthony Bonilla Urea nitrogen [Mass/Vol] 33.0 mg/dL Critically high 7.0-18.0 [facility] Comment on above: Performed By: #### C BC #### [facility] [address] [address] [address] Anthony Bonilla Urea nitrogen/Creatinine [Mass ratio] 26.4 mg/mg Normal [facility] Comment on above: Performed By: #### C BC #### [facility] [address] [address] [address] Anthony Bonilla PROTIMEon 11-01-2021 INR Coag (PPP) [Relative time] 0.97 {INR} Normal [facility] Comment on above: Performed By: #### U RCX #### [facility] [address] [address] [address] Anthony Bonilla INR GUIDELINES SEE BELOW Normal [facility] Comment on above: Result Comment: MEGAN RED INR: 2.0 - 3.0 CONDITIONS NOT LISTED BELOW 2.5 - 3.5 FOR PROSTHETIC HEART VALVE REPLACEMENT 2.5 - 3.5 RECURRENT THROMBOSIS Performed By: #### U RCX #### [facility] [address] [place] [address] Dr. Anthony Bonilla PT Coag (PPP) [Time] 10.5 s Normal 9.0-11.6 [facility] Comment on above: Performed By: #### U RCX #### [facility] [address] [place] [address] Dr. Anthony Bonilla PTTon 11-01-2021 aPTT Coag (Bld) [Time] 27.8 s Normal 22.3-36.2 Th [facility] Comment on above: Performed By: #### U RCX #### [facility] [address] [place] [address] Dr. Anthony Bonilla TSHon 11-01-2021 TSH 1.011 uIU/mL Normal 0.358-3.74 0 [facility] Comment on above: Performed By: #### C BC #### [facility] [address] [place] [address] Dr. Anthony Bonilla URINE MICROSCOPIC ONLYon BACTERIA LARGE Abnormal NONE SEEN [facility] Comment on above: Performed By: #### U RCX #### [facility] [address] [place] [address] Dr. Anthony Bonilla Bacteria identified Cx Nom (U) INDICATED Normal [facility] Comment on above: Performed By: #### U RCX #### [facility] [address] [place] [address] Dr. Anthony Bonilla CAST NONE SEEN Normal NONE SEEN [facility] Comment on above: Performed By: #### U RCX #### [facility] [address] [place] [address] Dr. Anthony Bonilla Crystals LM Nom (Urine sed) NONE SEEN Normal NONE SEEN [facility] Comment on above: Performed By: #### U RCX #### [facility] [address] [place] [address] Dr. Anthony Bonilla Epithelial cells LM Ql (Urine sed) FEW Abnormal NONE SEEN /RARE [facility] Comment on above: Performed By: #### U RCX #### [facility] [address] [address] [address] Anthony Bonilla MUCOUS NONE SEEN Normal NONE SEEN [facility] Comment on above: Performed By: #### U RCX #### [facility] [address] [place] [address] Dr. Anthony Bonilla RBC 2-5 Abnormal 0-2 [facility] Comment on above: Performed By: #### U RCX #### [facility] [address] [place] [address] Dr. Anthony Bonilla WBC 0-2 Abnormal NONE SEEN [facility] Comment on above: Performed By: #### U RCX #### [facility] [address] [place] [address] Dr. Anthony Bonilla Covid-19 PCR (CVDTBH)on SARS-CoV-2 (COVID-19) RNA OH+probe Ql (Unsp spec) Detected Critically abnormal NOT DETECTED [facility] Comment on above: Result Comment: This test is not yet approved or cleared by the [place] FDA. When there are no FDA-approved or cleared tests available, and other criteria are met, FDA can make tests available under an emergency access mechanism called an Emergency Use Authorization (EUA). The EUA for this test is supported by the Neurobiologist of Health and Human Service's declaration that [...] used). Performed By: #### C BC #### [facility] [address] [place] [address] Dr. Anthony Bonilla Covid-19 PCR (CVDTBH)on SARS-CoV-2 (COVID-19) RNA OH+probe Ql (Unsp spec) Not detected Normal NOT DETECTED [facility] Comment on above: Result Comment: This test is not yet approved or cleared by the [place] FDA. When there are no FDA-approved or cleared tests available, and other criteria are met, FDA can make tests available under an emergency access mechanism called an Emergency Use Authorization (EUA). The EUA for this test is supported by the Kempner of Health and Human Service's (HHS's) declaration [...] SARS-CoV-2. Performed By: #### U RCX #### [facility] [address] [place] [address] Dr. 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 Any time this information is not complete, it is the supervisor stave cutting?s responsibility to query the physician. Based on [...] timely attention to this matter. Ambar Manley [employer] Ext [phone] [Electronically Signed on: 10/18/2019 21:40 EDT] Mi Licea DO [Verified on: 10/18/2019 21:40 EDT] Mi Licea DO [Transcribed on: 10/02/2019 11:06 EDT] [facility] Consent Formson 09-29-2019 Consent Forms [id number]#1.00OTGTI [facility] Medication Managementon 09-09 Medication Management [id number][facility] 09-29-2019 Outside Records [id number]#[facility] [id number]#1.[facility] Provider Orderson 09-29-2019 Provider Orders [id number]#1.00[facility] Telemetry Stripson 0 Telemetry Strips [id number]#1.00[facility] .Auto Diff 1on 2019 Auto [place] % 11 % Normal -12 [facility] Comment on above: Performed By: #### 1 [id number], [id number], [id number] #### [facility] (DEFAULT) [address] [place] [address] Baso Abs# 0.0 x10 Normal 0.0-0.2 [facility] Comment on above: Performed By: #### 1 [id number], [id number], [id number] #### [facility] (DEFAULT) [address] [place] [address]992 Basophils/100 WBC (Bld) 0.1 % Low 0.2-2.0 [facility] Comment on above: Performed By: #### 1 [id number], [id number], [id number] #### [facility] (DEFAULT) [address] [place] [address] Eos Abs# 0.2 x10 Normal 0.0-0.4 [facility] Comment on above: Performed By: #### 1 [id number], [id number], 5568925 #### [facility] (DEFAULT) [address] [place] [address] Eosinophils/100 WBC (Bld) 2.2 % Normal 0.9-4.0 [facility] Comment on above: Performed By: #### 1 [id number], [id number], 9009879 #### [facility] (DEFAULT) [address] [place] [address] Lymphocytes (Bld) [#/Vol] 0.6 x10 Low 1.3-2.9 [facility] Comment on above: Performed By: #### 1 [id number], [id number], 9073635 #### [facility] (DEFAULT) [address] [place] [address] Lymphocytes/100 WBC (Bld) 6 % Low 14-48 [facility] Comment on above: Performed By: #### 1 [id number], [id number], 7687531 #### [facility] (DEFAULT) [address] [place] [address] [place] Abs# 1.0 x10 High 0.0-0.8 [facility] Comment on above: Performed By: #### 1 [id number], [id number], [id number] #### [facility] (DEFAULT) [address] [place] [address] Neut Abs# 7.2 x10 Normal 1.5-9.2 [facility] Comment on above: Performed By: #### 1 [id number], [id number], 3942826 #### [facility] (DEFAULT) [address] [place] [address] Neutrophils/100 WBC (Bld) 80 % Normal 44-88 [facility] Comment on above: Performed By: #### 1 [id number], [id number], 3368016 #### [facility] (DEFAULT) [address] [place] [address] CBC w/ Auto Diffon 0820-202 0 Erythrocyte distribution width (RBC) [Ratio] 14.4 % Normal 11.5-15.0 [facility] Comment on above: Performed By: #### 1 [id number], [id number], 4472536 #### [facility] (DEFAULT) [address] [place] [address] Hematocrit (Bld) [Volume fraction] 36.2 % Normal 33.7-40.4 [facility] Comment on above: Performed By: #### 1 [id number], [id number], 0739754 #### [facility] (DEFAULT) [address] [place] [address] Hemoglobin (Bld) [Mass/Vol] 11.9 g/dL Normal 11.3-15.9 [facility] Comment on above: Performed By: #### 1 [id number], [id number], 5531163 #### [facility] (DEFAULT) [address] [place] [address]177 Man Diff? Auto Normal [facility] Comment on above: Performed By: #### 1 [id number], 60425237, 2833860 #### [facility] (DEFAULT) [address] [place] [address] MCH (RBC) [Entitic mass] 33 pg Normal 24-34 [facility] Comment on above: Performed By: #### 1 [id number], [id number], 2438067 #### [facility] (DEFAULT) [address] [place] [address] MCHC (RBC) [Mass/Vol] 33 g/dL Normal 26-37 [facility] Comment on above: Performed By: #### 1 [id number], [id number], 0303433 #### [facility] (DEFAULT) [address] [place] [address] MCV (RBC) [Entitic vol] 100 fL Normal 81-100 [facility] Comment on above: Performed By: #### 1 [id number], 62293803, 9631457 #### [facility] (DEFAULT) [address] [place] [address] Platelet mean volume (Bld) [Entitic vol] 9.6 fL Normal 6.3-10.2 [facility] Comment on above: Performed By: #### 1 [id number], 58545675, 9263744 #### [facility] (DEFAULT) [address] [place] [address] Platelets (Bld) [#/Vol] 286 x10 Normal 138-427 [facility] Comment on above: Performed By: #### 1 [id number], 50143426, 1407922 #### [facility] (DEFAULT) [address] [place] [address] RBC (Bld) [#/Vol] 3.61 x10 Low 3.70-5.30 [facility] Comment on above: Performed By: #### 1 [id number], 45590599, 7067566 #### [facility] (DEFAULT) [address] [place] [address] WBC (Bld) [#/Vol] 9.0 x10 [facility] Comment on above: Performed By: #### 1 [id number], [id number], 3248215 #### [facility] (DEFAULT) [address] [place] [address] Education Noteon 2019 Education Note Education Materials [...] done to rule of a DVT. Normal [facility] 2019 Tube Collected Yes [facility] Comment on above: Performed By: #### 1 [id number], [id number], [id number] #### [facility] (DEFAULT) [address] [place] [address] Inpatient Patient Summaryon 2019 Inpatient Patient Summary [address] [address] Patient Discharge Instructions Name: DELICIA HSU : 1935 Patient Address: [address] [place] [address] Primary Care Provider: Name: Gypsy Mcmahon MD After you are discharged if you find you have any questions, please, call [phone] ext [phone] to speak to a nurse. Discharge Diagnosis: Primary localized osteoarthritis of left hip Prescription Information: If you have been given a prescription for narcotics, seek immediate medical attention if you have any difficulty breathing or any sudden status changes such as confusion and sleepiness. If you or anyone you know is experiencing suicidal thoughts, mental health, alcohol and/or drug addiction problems; contact the Mental [facility] Recovery [facility] 31/08 Crisis Hotline -Text 4HEOZ mr 559510. If you received any narcotics, sedation, or [...] business decisions or sign any legal documents [facility] would like to thank you for allowing us to assist you with your healthcare needs. The following includes patient education materials and information regarding your injury/illness. DELICIA HSU has been given the following list of follow-up instructions, prescriptions, and patient education materials: Follow-up Instructions With: Address: When: Mi Licea [address] [place] [address] [address] [place] [address] Business (2) 10/03/2019 8:30 AM With: Address: When: Gypsy Mcmahon [address] [place] [address] [place] [address] Business (1) Medications During the course of your visit, your medication list was updated with the most current information. The details of those changes are reflected below: New Medications Other Medications cefuroxime (cefuroxime 250 mg oral tablet) 1 tab(s) Oral 2 times a day for 7 Days. [facility] Medications That Were Updated - Follow [...] for Disease Control and Prevention October 2013 [facility] Progress Note - Nurseon 09-09 [facility] Pt. transferred to bed times one [...] on: 2019 11:52 EDT] Pan Regalado RN [facility] Progress Note - Nurse Pt. reports interm ittent left upper inner thigh grabbing pain. Pt. moans during these episodes. Tramadol given. Pt. repostioned for comfort. No change in the muscle spasms. Dr. Chacko informed in person. No orders received. [Electronically Signed on: 2019 09:32 EDT] Pan Regalado RN [Verified on: 2019 09:32 EDT] Pan Regalado RN [facility] Progress Note-Physicianon Progress Note-Physician DATE OF POSTOPERATIVE [...] PROGNOSIS: Good. Devorah Redd DO JOB #: [id number] [Electronically Signed on: 2019 13:04 EDT] DEVORAH REDD DO [Verified on: 2019 13:04 EDT] DEVORAH REDD DO [Transcribed on: 2019 11:05 EDT] GDU Normal [facility] .Auto Diff 1on 09-27-2019 Auto [place] % 9 % Normal 1-12 [facility] Comment on above: Performed By: #### 1 [id number], [id number], [id number] #### [facility] (DEFAULT) [address] [place] [address] 34935 Baso Abs# 0.0 x10 Normal 0.0-0.2 [facility] Comment on above: Performed By: #### 1 [id number], [id number], 5433583 #### [facility] (DEFAULT) [address] [place] [address] 71109 Basophils/100 WBC (Bld) 0.1 % Low 0.2-2.0 [facility] Comment on above: Performed By: #### 1 [id number], [id number], 8904366 #### [facility] (DEFAULT) [address] [place] [address]54 Eos Abs# 0.2 x10 Normal 0.0-0.4 [facility] Comment on above: Performed By: #### 1 [id number], [id number], 9295980 #### [facility] (DEFAULT) [address] [place] [address] 99372 Eosinophils/100 WBC (Bld) 1.6 % Normal 0.9-4.0 [facility] Comment on above: Performed By: #### 1 [id number], 18345993, 2427734 #### [facility] (DEFAULT) [address] [place] [address] 86349 Lymphocytes (Bld) [#/Vol] 0.5 x10 Low 1.3-2.9 [facility] Comment on above: Performed By: #### 1 [id number], 97230741, 0471354 #### [facility] (DEFAULT) [address] [place] [address] 59888 Lymphocytes/100 WBC (Bld) 4 % Low 14-48 [facility] Comment on above: Performed By: #### 1 [id number], 67903155, 0218255 #### [facility] (DEFAULT) [address] [place] [address]012 [place] Abs# 1.2 x10 High 0.0-0.8 [facility] Comment on above: Performed By: #### 1 [id number], 99585079, 2472953 #### [facility] (DEFAULT) [address] [place] [address] 14641 Neut Abs# 11.5 x10 High 1.5-9.2 [facility] Comment on above: Performed By: #### 1 [id number], 99883543, 5273980 #### [facility] (DEFAULT) [address] [place] [address] 8[address]18 Neutrophils/100 WBC (Bld) 86 % Normal 44-88 [facility] Comment on above: Performed By: #### 1 [id number], 78777798, 9090424 #### [facility] (DEFAULT) [address] [place] [address] 40893 C Urineon 09-27-2019 C Urine Urine Culture [...] <=4 Verified Tri/Sulf S <=2/38 Verified Normal [facility] Comment on above: Performed By: #### 7 [id number], [id number], [id number] #### [facility] (DEFAULT) [address] [place] [address] CBC w/ Auto Diffon 0 Erythrocyte distribution width (RBC) [Ratio] 14.5 % Normal 11.5-15.0 [facility] Comment on above: Performed By: #### 1 [id number], [id number], 6175564 #### [facility] (DEFAULT) [address] [place] [address] Hematocrit (Bld) [Volume fraction] 39.2 % Normal 33.7-40.4 [facility] Comment on above: Performed By: #### 1 [id number], 41663803, 8912056 #### [facility] (DEFAULT) [address] [place] [address] Hemoglobin (Bld) [Mass/Vol] 12.8 g/dL Normal 11.3-15.9 [facility] Comment on above: Performed By: #### 1 [id number], 23828069, 2189817 #### [facility] (DEFAULT) [address] [place] [address] 13929 Man Diff? Auto Normal [facility] Comment on above: Performed By: #### 1 [id number], 55935555, 1343828 #### [facility] (DEFAULT) [address] [place] [address]31 MCH (RBC) [Entitic mass] 33 pg Normal 24-34 [facility] Comment on above: Performed By: #### 1 [id number], 83245795, 2953306 #### [facility] (DEFAULT) [address] [place] [address] 08407 MCHC (RBC) [Mass/Vol] 33 g/dL Normal 26-37 [facility] Comment on above: Performed By: #### 1 [id number], [id number], 1572063 #### [facility] (DEFAULT) [address] [place] [address] 08241 MCV (RBC) [Entitic vol] 101 fL High 81-100 [facility] Comment on above: Performed By: #### 1 [id number], [id number], 6549180 #### [facility] (DEFAULT) [address] [place] [address]3936 Platelet mean volume (Bld) [Entitic vol] 9.8 fL Normal 6.3-10.2 [facility] Comment on above: Performed By: #### 1 [id number], [id number], 4081500 #### [facility] (DEFAULT) [address] [place] [address] 92467 Platelets (Bld) [#/Vol] 266 x10 Normal 138-427 [facility] Comment on above: Performed By: #### 1 [id number], [id number], 6509254 #### [facility] (DEFAULT) [address] [place] [address] 58846 RBC (Bld) [#/Vol] 3.89 x10 Normal 3.70-5.30 [facility] Comment on above: Performed By: #### 1 [id number], 46015133, 0973789 #### [facility] (DEFAULT) [address] [place] [address] WBC (Bld) [#/Vol] 13.4 x10 [facility] Comment on above: Result Comment: Slid e Reviewed Performed By: #### 1 [id number], [id number], 7320170 #### [facility] (DEFAULT) [address] [place] [address] Coding Summaryon 09-27-2019 Coding Summary CODING DATE: 020 FINAL [facility] STATUS: Home PAYOR: Medicare ADMIT DX: [...] Marisela Lawrence Date Saved: 09/27/2019 11:11 am [facility] Extra Greenon 09-27-2019 Tube Collected Yes [facility] Comment on above: Performed By: #### 1 [id number], [id number], [id number] #### [facility] (DEFAULT) [address] [place] [address] Nutrition Noteon 09-27-2019 Nutrition Note Pt eating poorly, av g less than 30% of meals per intake records. Supplements also taken sporadically. Suspect pain and constipation may be playing a role. No new wts. Last BM 09/23. Possible discharge later today. Will continue to follow and monitor need to adjust supplements ie. offer to make into a milkshake, [facility] Pharmacy Noteon 09-27-2019 Pharmacy Note I have [...] [Verified on: 09/27/2019 14:01 EDT] Virgie Santos [facility] Progress Note - Nurseon 09-08 Progress Note - Nurse 1800 one dulcolax suppository administered, will continue to monitor. [Electronically Signed on: 09/27/2019 18:03 EDT] Luli Mclain RN [Verified on: 09/27/2019 18:03 EDT] Luli Mclain RN [facility] Progress Note - Nurse 1710 tramadol 50mg po administered for #10 left upper thigh pain , will continue to monitor. [Electronically Signed on: 09/27/2019 17:09 EDT] Luli Mclain RN [Verified on: 09/27/2019 17:09 EDT] Luli Mclain RN [facility] Progress Note-Physicianon Progress Note-Physician DATE OF POSTOPERATIVE [...] PROGNOSIS: Good. Devorah Redd DO JOB #: [id number] [Electronically Signed on: 2019 10:28 EDT] DEVORAH REDD DO [Verified on: 2019 10:28 EDT] DEVORAH REDD DO [Transcribed on: 09/27/2019 13:52 EDT] [facility] .Auto Diff 1on 09-26-2019 Auto [place] % 9 % Normal 1-12 [facility] Comment on above: Performed By: #### 1 [id number], [id number], [id number] #### [facility] [facility] (DEFAULT) [address] [place] [address] 91352 Baso Abs# 0.0 x10 Normal 0.0-0.2 [facility] Comment on above: Performed By: #### 1 [id number], [id number], [id number] #### [facility] (DEFAULT) [address] [place] [address] 12516 Basophils/100 WBC (Bld) 0.1 % Low 0.2-2.0 [facility] Comment on above: Performed By: #### 1 [id number], [id number], [id number] #### [facility] (DEFAULT) [address] [place] [address] 14977 Eos Abs# 0.2 x10 Normal 0.0-0.4 [facility] Comment on above: Performed By: #### 1 [id number], [id number], [id number] #### [facility] (DEFAULT) [address] [place] [address] 89527 Eosinophils/100 WBC (Bld) 2.0 % Normal 0.9-4.0 [facility] Comment on above: Performed By: #### 1 [id number], 50427338, 5004075 #### [facility] (DEFAULT) [address] [place] [address] 70146 Lymphocytes (Bld) [#/Vol] 0.6 x10 Low 1.3-2.9 [facility] Comment on above: Performed By: #### 1 [id number], 34659088, [id number] #### [facility] (DEFAULT) [address] [place] [address] 30312 Lymphocytes/100 WBC (Bld) 6 % Low 14-48 [facility] Comment on above: Performed By: #### 1 [id number], 77330835, 0626074 #### [facility] (DEFAULT) [address] [place] [address] 50090 [place] Abs# 0.9 x10 High 0.0-0.8 [facility] Comment on above: Performed By: #### 1 [id number], [id number], 6462258 #### [facility] (DEFAULT) [address] [place] [address] Neut Abs# 8.3 x10 Normal 1.5-9.2 [facility] Comment on above: Performed By: #### 1 [id number], 57822615, 7279546 #### [facility] (DEFAULT) [address] [place] [address] Neutrophils/100 WBC (Bld) 83 % Normal 44-88 [facility] Comment on above: Performed By: #### 1 [id number], 14165159, [id number] #### [facility] (DEFAULT) [address] [place] [address] BMP Standardon 09-26-2019 eGFR Non AA 48 mL/min/1.73m2 [facility] Comment on above: Performed By: #### 1 [id number], 06398903, 7559626 #### [facility] (DEFAULT) [address] [place] [address] eGFR AA 58 mL/min/1.73m2 [facility] Comment on above: Result Comment: Emts kody Kidney disease could be indicated at eGFRs of less than 60 ml/min/1.73m2. Kidney Failure is indicated at less than 15 ml/min/1.73m2 Performed By: #### 1 [id number], 19700400, [id number] #### [facility] (DEFAULT) [address] [place] [address] 71310 Anion gap [Moles/Vol] 10.0 mmol/L Normal 5.0-19.0 [facility] Comment on above: Performed By: #### 1 [id number], 71758170, 6066615 #### [facility] (DEFAULT) [address] [place] [address] 12115 Calcium [Mass/Vol] 8.8 mg/dL Low 8.9-10.3 [facility] Comment on above: Performed By: #### 1 [id number], 99841054, 0060633 #### [facility] (DEFAULT) [address] [place] [address] 13942 Chloride [Moles/Vol] 103 mmol/L Normal 101-111 [facility] Comment on above: Performed By: #### 1 [id number], 68344424, 2370886 #### [facility] (DEFAULT) [address] [place] [address] 41985 CO2 [Moles/Vol] 28 mmol/L Normal 21-32 [facility] Comment on above: Performed By: #### 1 [id number], 31135684, 7838705 #### [facility] (DEFAULT) [address] [place] [address] 79657 Creatinine [Mass/Vol] 1.09 mg/dL Normal 0.60-1.30 [facility] Comment on above: Performed By: #### 1 [id number], 09051745, 8336103 #### [facility] (DEFAULT) [address] [place] [address] 36152 Glucose [Mass/Vol] 94.0 mg/dL Normal 74.0-118.0 [facility] Comment on above: Performed By: #### 1 [id number], 51817272, 5862083 #### [facility] (DEFAULT) [address] [place] [address] 02392 Osmolality [Osmolality] 276 mOsm/L [facility] Comment on above: Performed By: #### 1 [id number], 47660139, 2345744 #### [facility] (DEFAULT) [address] [place] [address] 80797 Potassium [Moles/Vol] 4.4 mmol/L Normal 3.6-5.1 [facility] Comment on above: Performed By: #### 1 [id number], 93167338, 8590683 #### [facility] (DEFAULT) [address] [place] [address] 32244 Sodium [Moles/Vol] 137.0 mmol/L Normal 136.0-144 . 0 [facility] Comment on above: Performed By: #### 1 [id number], 91448570, 5659986 #### [facility] (DEFAULT) [address] [place] [address] Urea nitrogen [Mass/Vol] 19 mg/dL Normal 8-26 [facility] Comment on above: Performed By: #### 1 [id number], 31163573, 2372269 #### [facility] (DEFAULT) [address] [place] [address] Urea nitrogen/Creatinine [Mass ratio] 17.0 mg/mg High 4.6-16.2 [facility] Comment on above: Performed By: #### 1 [id number], 98536510, 0338558 #### [facility] (DEFAULT) [address] [place] [address] CBC w/ Auto Diffon 0 Erythrocyte distribution width (RBC) [Ratio] 14.4 % Normal 11.5-15.0 [facility] Comment on above: Performed By: #### 1 [id number], 00348667, 1616080 #### [facility] (DEFAULT) [address] [place] [address] Hematocrit (Bld) [Volume fraction] 35.5 % Normal 33.7-40.4 [facility] Comment on above: Performed By: #### 1 [id number], 28756092, 6091638 #### [facility] (DEFAULT) [address] [place] [address] Hemoglobin (Bld) [Mass/Vol] 11.6 g/dL Normal 11.3-15.9 [facility] Comment on above: Performed By: #### 1 [id number], 03276343, 2158898 #### [facility] (DEFAULT) [address] [place] [address] Man Diff? Auto Normal [facility] Comment on above: Performed By: #### 1 [id number], 69432324, 6474949 #### [facility] (DEFAULT) [address] [place] [address] 51648 MCH (RBC) [Entitic mass] 33 pg Normal 24-34 [facility] Comment on above: Performed By: #### 1 [id number], 53576431, 4803038 #### [facility] (DEFAULT) [address] [place] [address] 02006 MCHC (RBC) [Mass/Vol] 33 g/dL Normal 26-37 [facility] Comment on above: Performed By: #### 1 [id number], 58535862, 6022450 #### [facility] (DEFAULT) [address] [place] [address] 85846 MCV (RBC) [Entitic vol] 102 fL High 81-100 [facility] Comment on above: Performed By: #### 1 [id number], 48100651, 8047848 #### [facility] (DEFAULT) [address] [place] [address] Platelet mean volume (Bld) [Entitic vol] 9.8 fL Normal 6.3-10.2 [facility] Comment on above: Performed By: #### 1 [id number], 83866158, 9264681 #### [facility] (DEFAULT) [address] [place] [address] Platelets (Bld) [#/Vol] 236 x10 Normal 138-427 [facility] Comment on above: Performed By: #### 1 [id number], 11012186, 2924835 #### [facility] (DEFAULT) [address] [place] [address] 15350 RBC (Bld) [#/Vol] 3.49 x10 Low 3.70-5.30 [facility] Comment on above: Performed By: #### 1 [id number], 74686821, 0049322 #### [facility] (DEFAULT) [address] [place] [address] 12684 WBC (Bld) [#/Vol] 10.0 x10 [facility] Comment on above: Performed By: #### 1 [id number], 22791365, 8140292 #### [facility] (DEFAULT) [address] [place] [address] Consent Formson 09-26-2019 Consent Forms [id number]#[id number] FF Normal [facility] Consultation/Specialist Note on 09-26-2019 Consultation/Specialis t [...] [Verified on: 09/26/2019 07:35 EDT] SUDHEER PIKE [facility] Progress Note - Nurseon 09-08 Progress Note [...] on: 09/26/2019 07:45 EDT] Twila Cruz RN [facility] .Auto Diff 1on 09-25-2019 Auto [place] % 8 % Normal 1-12 [facility] Comment on above: Performed By: #### 1 [id number], 03009843, 6889985 #### [facility] (DEFAULT) [address] [place] [address] 33722 Baso Abs# 0.0 x10 Normal 0.0-0.2 [facility] Comment on above: Performed By: #### 1 [id number], 75243237, 7804151 #### [facility] (DEFAULT) [address] [place] [address] 75415 Basophils/100 WBC (Bld) 0.2 % Normal 0.2-2.0 [facility] Comment on above: Performed By: #### 1 [id number], 75138935, 4087190 #### [facility] (DEFAULT) [address] [place] [address] 98714 Eos Abs# 0.1 x10 Normal 0.0-0.4 [facility] Comment on above: Performed By: #### 1 [id number], 39683419, 9740873 #### [facility] (DEFAULT) [address] [place] [address] 57133 Eosinophils/100 WBC (Bld) 0.5 % Low 0.9-4.0 [facility] Comment on above: Performed By: #### 1 [id number], 48204531, 9593452 #### [facility] (DEFAULT) [address] [place] [address] 05707 Lymphocytes (Bld) [#/Vol] 1.1 x10 Low 1.3-2.9 [facility] Comment on above: Performed By: #### 1 [id number], 55761486, 5753534 #### [facility] (DEFAULT) [address] [place] [address] 36284 Lymphocytes/100 WBC (Bld) 9 % Low 14-48 [facility] Comment on above: Performed By: #### 1 [id number], 22676872, 2570919 #### [facility] (DEFAULT) [address] [place] [address] 16414 [place] Abs# 1.0 x10 High 0.0-0.8 [facility] Comment on above: Performed By: #### 1 [id number], 57911018, 0646543 #### [facility] (DEFAULT) [address] [place] [address] Neut Abs# 9.6 x10 High 1.5-9.2 [facility] Comment on above: Performed By: #### 1 [id number], 66356063, 6533440 #### [facility] (DEFAULT) [address] [place] [address] 07364 Neutrophils/100 WBC (Bld) 82 % Normal 44-88 [facility] Comment on above: Performed By: #### 1 [id number], 16806535, 4363303 #### [facility] (DEFAULT) [address] [place] [address] 61759 ABORhon 09-25-2019 ABO and Rh group Nom (Bld) Hx Check: Not Found Anti-A: 4+ Anti-B: 0 Anti-D: 4+ DCon: NT A1: 0 B: 4+ ABORh Interp: A POS [facility] Comment on above: Performed By: #### 7 [id number], 73263505, [id number] #### [facility] (DEFAULT) [address] [place] [address] 65917 ABORh Retypeon 09-25-2019 ABO and Rh group Nom (Bld) Ordered by Discern. Anti-A: 4+ Anti-B: 0 Anti-D: 4+ DCon: NT A1: 0 B: 4+ ABORh Retype: A [facility] Comment on above: Performed By: #### 7 [id number], 39990235, [id number] #### [facility] (DEFAULT) [address] [place] [address] 80231 ABSC Gelon 09-25-2019 ABSC Gel Negative Normal [facility] Comment on above: Performed By: #### 7 [id number], 03017145, [id number] #### [facility] (DEFAULT) [address] [place] [address] 42993 Anesthesia Noteon 09-25-2019 Anesthesia Note Patient: DONTAE [...] risk of pressure sore / SNOMED CT 127700346 / Confirmed CAD (coronary artery disease) / SNOMED CT 16423391 / Confirmed Hyperlipidemia / SNOMED CT 36222642 / Confirmed Hypertension / SNOMED CT 2722439065 / Confirmed Skin cancer / SNOMED CT 1207760534 / Confirmed Osteoporosis / SNOMED CT 676757507 / Confirmed Restless leg syndrome / SNOMED CT 83054933 / Confirmed Resolved: GERD (gastroesophageal reflux disease) / SNOMED CT 186222894 Histories Family History: Cancer Sister Brother Aneurysm Mother CHF - Congestive heart failure Father [place] (myocardial infarction) Sister Procedure history: Umbilical hernia (1900741622). Arthroscopy (92773173). Comments: 08/29/2019 12:57 Dionne Mccarty RN arthroscopy of knee Cholecystectomy (90582583). Hysterectomy (311548157). Cataract (262980345). Shoulder (29469564). Comments: 08/29/2019 12:58 EDT - Halblaub, Sidsel RN arthroscopy CABG (Coronary artery bypass grafting) planned (759673884). Colonoscopy (824443285). EGD - Esophagogastroduodenoscop y (5575511509). Meniscectomy (865369100). Hip arthroplasty (593422530). Social History Electronic Cigarette/Vaping Assessment Electronic Cigarette Use: Never. Alcohol Assessment Use: Never. Tobacco Assessment Former smoker, quit more than 30 days ago Tobacco Use:. Substance Abuse Assessment Substance use: Never. . Physical Examination VS/Measurements Vital Signs (last 24 hrs) Last Charted Heart Rate Peripheral L 55bpm (SEP 24 07:45) Resp Rate 16 br/min (SEP 24:45) SBP H 153mmHg (SEP 24 07:45) DBP [...] axis dev, LAFB, RV conduction delay. Plan [place] [employer] Anesthesiologists#(ASA) physical status classification: Class III. Anesthetic Preoperative Plan Anesthesia: Regional Spinal. Anesthetic plan, risks, benefits, and alternatives discussed with the patient and/or family. Patient verbalized understanding. Informed consent was given. Consent was signed by the patient. [Electronically Signed on: 09/25/2019 10:10 EDT] Enrike Mora MD [Verified on: 09/25/2019 10:10 EDT] Enrike Mora MD Normal [facility] Blood Bank IDon 09-25-2019 Blood Bank ID BBID: [id number] [facility] Comment on above: Performed By: #### 7 [id number], [id number], [id number] #### [facility] (DEFAULT) [address] [place] [address] CBC w/ Auto Diffon 0 Erythrocyte distribution width (RBC) [Ratio] 14.4 % Normal 11.5-15.0 [facility] Comment on above: Performed By: #### 1 [id number], 87630343, 4165117 #### [facility] (DEFAULT) [address] [place] [address] Hematocrit (Bld) [Volume fraction] 39.2 % Normal 33.7-40.4 [facility] Comment on above: Performed By: #### 1 [id number], 73598610, 1402881 #### [facility] (DEFAULT) [address] [place] [address] Hemoglobin (Bld) [Mass/Vol] 12.8 g/dL Normal 11.3-15.9 [facility] Comment on above: Performed By: #### 1 [id number], 46680134, 4307009 #### [facility] (DEFAULT) [address] [place] [address] 94410 Man Diff? Auto Normal [facility] Comment on above: Performed By: #### 1 079454935, 51669719, 4917264 #### [facility] (DEFAULT) [address] [place] [address] 80034 MCH (RBC) [Entitic mass] 33 pg Normal 24-34 [facility] Comment on above: Performed By: #### 1 [id number], 96649635, 4743036 #### [facility] (DEFAULT) [address] [place] [address] 24473 MCHC (RBC) [Mass/Vol] 33 g/dL Normal 26-37 [facility] Comment on above: Performed By: #### 1 874189673, 19749429, 2928658 #### [facility] (DEFAULT) [address] [place] [address] 02767 MCV (RBC) [Entitic vol] 102 fL High 81-100 [facility] Comment on above: Performed By: #### 1 [id number], 05720672, 8422341 #### [facility] (DEFAULT) [address] [place] [address] 96370 Platelet mean volume (Bld) [Entitic vol] 9.4 fL Normal 6.3-10.2 [facility] Comment on above: Performed By: #### 1 005298996, 35970823, 3596914 #### [facility] (DEFAULT) [address] [place] [address] 17901 Platelets (Bld) [#/Vol] 272 x10 Normal 138-427 [facility] Comment on above: Performed By: #### 1 [id number], 53580835, 8801077 #### [facility] (DEFAULT) [address] [place] [address] 21481 RBC (Bld) [#/Vol] 3.85 x10 Normal 3.70-5.30 [facility] Comment on above: Performed By: #### 1 [id number], 25788734, 5485595 #### [facility] (DEFAULT) [address] [place] [address] 00575 WBC (Bld) [#/Vol] 11.7 x10 High 3.5-10.5 [facility] Comment on above: Performed By: #### 1 366847404, 23234502, 2223812 #### [facility] (DEFAULT) [address] [place] [address] 41372 Extra Chauncey 09-25-2019 Tube Collected Yes [facility] Comment on above: Performed By: #### 7 436542, 21752473, [id number] #### [facility] (DEFAULT) [address] [place] [address] 67549 H&Hon 09-25-2019 Hematocrit (Bld) [Volume fraction] 39.9 % Normal 33.7-40.4 [facility] Comment on above: Performed By: #### 7 887569, 68794289, [id number] #### [facility] (DEFAULT) [address] [place] [address] Hemoglobin (Bld) [Mass/Vol] 12.7 g/dL Normal 11.3-15.9 [facility] Comment on above: Performed By: #### 7 095758, 42921726, [id number] #### [facility] (DEFAULT) [address] [place] [address] History and Physicalon 09-24 History and Physical [id number]#[id number] FF Normal [facility] MAGR Intraoperative Recordon 09-25-2019 MAGR Intraoperative Record MAGR Intra-Op Record Summary Primary Physician: Mi Licea DO Finalized Date/Time: 09/25/19 15:04:11 Pt. Name: DELICIA HSU Jean Carlos Cha/Sex: 1935 FEMALE Med Rec #: [id number] Physician: Mi Licea DO Financial #: [id number] Pt. Type: I Room/Bed: [facility] Admit/Disch: 09/25/19 06:52:00 - Institution: Case [...] Role Performed Surgeon - Primary Anesthesiologist of Director Of Distance Learning Record Time In 09/25/19 09:37:00 09/25/19 09:37:00 09/25/19 09:37:00 Time Out 09/25/19 11:50:00 09/25/19 11:50:00 09/25/19 11:50:00 Procedure Arthroplasty Total Arthroplasty Total Arthroplasty Total Hip(Left) Hip(Left) Hip(Left) Last Modified By: Marj Sullivan RN, Stephanie RN Sauer, Stephanie RN 09/25/19 12:54:58 09/25/19 12:54:58 09/25/19 12:54:58 Entry 4 Entry 5 Entry 6 Case Attendee Montrell MCKEON, Shantal Moreira Leigh-Ann CST Role Performed Scrub Personnel Ground Hand Ground Hand Time In 09/25/19 09:37:00 09/25/19 09:37:00 09/25/19 [...] By: Eduardo Vallejo DO Eduardo DO Size 32MM 50MM 6.5 X 30MM 6.5 X 15MM General Ledger Bookkeeper DEPUY DEPUY DEPUY Catalog # Lot Number [id number] Expiration Date 05/08/24 03/10/29 01/07/29 Serial Number [id number] REF 1217-30-500 REF 1217-15-500 Device Identifier Human Readable EDDA Machine Readable EDDA MR Class Implant Usage Data Site Hip L Hip L Hip L Quantity 1 1 1 Reason for Explant Reason Not Retained Explant Disposition Bath Mixer Sterility External Indicator Result Internal Indicator Results [...] Mi Licea James Huddleston, James By: Eduardo Schultzw DO Size 6.5 X 15MM 50MM PS General Ledger Bookkeeper DEPUY DEPUY DEPUY Catalog # Lot Number [id number] Expiration Date 11/07/28 04/07/29 04/07/29 Serial Number REF 1217-15-500 REF 1217-32-050 REF 1246-03-000 Device Identifier Human Readable EDDA Machine Readable EDDA MR Class Implant Usage Data Site Hip L Hip L Hip L Quantity 1 1 1 Reason for Explant Reason Not Retained Explant Disposition Bath Mixer Sterility External Indicator Result Internal Indicator Results [...] SHORT NECK COLLAR 01/21 TAPER SIZE 11 General Ledger Bookkeeper DEPUY DEPUY Catalog # Lot Number [id number] Expiration Date 02/08/24 02/08/24 Serial Number REF [id number] REF 1365-22-000 Device Identifier Human Readable EDDA Machine Readable EDDA MR Class Implant Usage Data Site Hip L Hip L Quantity 1 1 Reason for Explant Reason Not Retained Explant Disposition Bath Mixer Sterility External Indicator Result Internal Indicator Results [...] Unfinalizing 09/25/19 15:04 MARSHA Modify Pick List [facility] MAGR PACU Recordon 0 MAGR PACU Record MAGR PACU Record Sum [facility] Primary Physician: Mi Licea DO Finalized Date/Time: 09/25/19 12:53:39 Pt. Name: DELICIA HSU/Sex: 1935 FEMALE Med Rec #: [id number] Physician: Mi Licea DO Financial #: [id number] Pt. Type: I Room/Bed: 221/1 Admit/Disch: 09/25/19 06:52:00 - Institution: PACU Case Times MAGR Entry 1 In PACU I 09/25/19 11:50:00 Discharge from PACU 09/25/19 12:40:00 I Last Modified By: Dionne Yun RN 09/25/19 12:53:35 Finalized By: Dionne Yun RN Document Signatures Signed By: Dionne Yun RN 09/25/19 12:53 [facility] MAGR Preoperative Recordon 0 09-25-2019 MAGR Preoperative Record MAGR Pre-Op Record Summary Primary Physician: Mi Licea DO Finalized Date/Time: 09/25/19 11:58:52 Pt. Name: DELICIA HSU/Sex: 1935 FEMALE Med Rec #: [id number] Physician: Mi Licea DO Financial #: [id number] Pt. Type: I Room/Bed: 221/1 Admit/Disch: 09/25/19 [...] Signed By: Dionne Yun RN 09/25/19 11:58 [facility] Nutrition Noteon 09-25-2019 Nutrition Note Pt admitted for sche duled Lt total hip sx; placed on a Regular diet as tolerated w/ post op supplements BID along w/ usual vitamin/mineral supplementation. Nutritional supplements adjusted to what's available in house. Per manager distribution assessment, Pt reports wt loss of 2-13lb, [...] associates to offer prunes/prune alfred q am. [facility] Operative Report - Surgeon/P hung 09-25-2019 Operative [...] on: 10/18/2019 21:39 EDT] Mi Licea DO [facility] Pharmacy Noteon 09-25-2019 Pharmacy Note I have [...] [Verified on: 09/25/2019 13:26 EDT] Virgie Santos [facility] Pharmacy Note I have personally reviewed the [...] [Verified on: 09/25/2019 13:04 EDT] Marj Mccall [facility] Progress Note - Nurseon 08- TSH Qn Pt states that she i s having pain in her lt hip and neck #8 on the scale. Pt also complains of freezing . Temp 97.8. Pt given a warm blanket and medicated with Morphine 2mg IVP as ordered. 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 Performed By: #### 7 [id number], [id number], [id number] #### [facility] (DEFAULT) [address] [place] [address] UA Bacteria 4+ [facility] Comment on above: Order Comment: Urina lysis Microscopic order added on by [employer] Rules system. Performed By: #### 7 [id number], [id number], [id number] #### [facility] (DEFAULT) [address] [place] [address] UA Squam Epi Rare [facility] Comment on above: Order Comment: Urina lysis Microscopic order added on by [employer] Rules system. Performed By: #### 7 [id number], [id number], [id number] #### [facility] (DEFAULT) [address] [place] [address] UA WBC 0-2 [facility] Comment on above: Order Comment: Urina lysis Microscopic order added on by [employer] Rules system. Performed By: #### 7 [id number], 94792158, [id number] #### [facility] (DEFAULT) [address] [place] [address] 13030 UA w Culture if Ind Standard on 09-25-2019 Breakpoint UA Normal [facility] Comment on above: Order Comment: sim insert Performed By: #### 7 607691, [id number], [id number] #### [facility] (DEFAULT) [address] [place] [address] 16622 Color (U) Yellow [facility] Comment on above: Order Comment: sim insert Performed By: #### 7 [id number], [id number], [id number] #### [facility] (DEFAULT) [address] [place] [address] 20273 Culture? Indicated [facility] Comment on above: Order Comment: sim insert Performed By: #### 7 [id number], [id number], [id number] #### [facility] [facility] ([facility] [address] [place] [address] 24252 Glucose (U) [Mass/Vol] Negative [facility] Comment on above: Order Comment: sim insert Performed By: #### 7 [id number], [id number], [id number] #### [facility] (DEFAULT) [address] [place] [address] 18291 Ketones Ql (U) Negative [facility] Comment on above: Order Comment: sim insert Performed By: #### 7 [id number], [id number], [id number] #### [facility] (DEFAULT) [address] [place] [address] 76810 Micro? Indicated [facility] Comment on above: Order Comment: sim insert Performed By: #### 7 [id number], [id number], [id number] #### [facility] (DEFAULT) [address] [place] [address] 91429 UA Bilirubin Negative [facility] Comment on above: Order Comment: sim insert Performed By: #### 7 [id number], [id number], [id number] #### [facility] (DEFAULT) [address] [place] [address] 97737 UA Blood Negative Normal [facility] Comment on above: Order Comment: sim insert Performed By: #### 7 [id number], [id number], [id number] #### [facility] (DEFAULT) [address] [place] [address] 57896 UA Clarity CLEAR Normal CLEAR [facility] Comment on above: Order Comment: sim insert Performed By: #### 7 403048, [id number], [id number] #### [facility] (DEFAULT) [address] [place] [address] 14365 UA Leuk Est SMALL Abnormal NEGATIVE [facility] Comment on above: Order Comment: sim insert Performed By: #### 7 694333, [id number], [id number] #### [facility] (DEFAULT) [address] [place] [address] UA Nitrite Positive Abnormal NEGATIVE [facility] Comment on above: Order Comment: sim insert Performed By: #### 7 [id number], [id number], [id number] #### [facility] (DEFAULT) [address] [place] [address] UA pH 7.0 Normal 5-8 [facility] Comment on above: Order Comment: sim insert Performed By: #### 7 796162, [id number], [id number] #### [facility] (DEFAULT) [address] [place] [address] UA Protein Negative Normal NEGATIVE [facility] Comment on above: Order Comment: sim insert Performed By: #### 7 883012, [id number], [id number] #### [facility] (DEFAULT) [address] [place] [address] UA Spec Grav 1.020 Normal 1.001-1.[address] [place] [address] Comment on above: Order Comment: sim insert Performed By: #### 7 920657, [id number], [id number] #### [facility] (DEFAULT) [address] [place] [address] 61014 UA Urobilinogen 0.2 mg/dL Normal 0.2-1.0 [facility] Comment on above: Order Comment: sim insert Performed By: #### 7 557929, [id number], [id number] #### [facility] (DEFAULT) [address] [place] [address] Urine Source Clean Catch [facility] Comment on above: Order Comment: sim insert Performed By: #### 7 868489, [id number], [id number] #### [facility] (DEFAULT) [address] [place] [address] 29201 XR Hip Complete Lefton 09-24 XR Hip [...] MD 09/25/19 3:55 pm Technologist: OCHOA NAZARIO [facility] Patient Handouton 09-24-2019 Patient Handout [facility] Progress Note - Nurseon 09-08 Progress Note - Nurse Spoke with pt zach rding arrival time of 0700 and NPO status. Verbalized understanding. [Electronically Signed on: 09/22/2019 09:47 EDT] Kimberley Holden RN [Verified on: 09/22/2019 09:47 EDT] Kimberley Holden RN [facility] SARS-CoV-2 (COVID-19) PCRon 09-22-2019 COVID-19 PCR Not Detected Normal Not Detected [facility] Comment on above: Performed By: #### 7 480538, [id number], [id number] #### [facility] (DEFAULT) [address] [place] [address] 92261 Employed in healthcare? Unknown [facility] Comment on above: Performed By: #### 7 564136, [id number], [id number] #### [facility] (DEFAULT) [address] [place] [address] 02032 Group care resident? Unknown [facility] Comment on above: Performed By: #### 7 009761, [id number], [id number] #### [facility] (DEFAULT) [address] [place] [address] 03785 Hospitalized due to COVID-19? Unknown [facility] Comment on above: Performed By: #### 7 056470, [id number], [id number] #### [facility] (DEFAULT) [address] [place] [address] 92791 In ICU? Unknown [facility] Comment on above: Performed By: #### 7 345350, [id number], [id number] #### [facility] (DEFAULT) [address] [place] [address] 60414 status? Unknown [facility] Comment on above: Performed By: #### 7 135610, [id number], [id number] #### [facility] (DEFAULT) [address] [place] [address] 25187 Symptomatic as defined by CDC? Unknown [facility] Comment on above: Performed By: #### 7 916076, [id number], [id number] #### [facility] (DEFAULT) [address] [place] [address] 20043 Coding Summaryon 09-13-2019 Coding Summary CODING DATE: 020 FINAL [facility] STATUS: Home PAYOR: Medicare APC DESCRIPTION 5733 Level 3 Minor Procedures ADMIT DX: REASON FOR VISIT DX: Z01.818 Encounter for other preprocedural examination I10 Essential (primary) hypertension I25.10 Atherosclerotic heart disease of [place] coronary artery without angina pectoris FINAL DX: PRINCIPAL: Z01.818 Encounter for other preprocedural examination SECONDARY: I10 Essential (primary) hypertension I25.10 Atherosclerotic heart disease of [place] coronary artery without angina pectoris K21.9 Gastro-esophageal [...] Marisela Lawrence Date Saved: 09/13/2019 09:18 am [facility] Coding Summaryon 09-06-2019 Coding Summary CODING DATE: 020 [facility] STATUS: Home PAYOR: Medicare APC DESCRIPTION 5733 Level 3 Minor Procedures ADMIT DX: REASON FOR VISIT DX: Z01.818 Encounter for other preprocedural examination I10 Essential (primary) hypertension I25.10 Atherosclerotic heart disease of [place] coronary artery without angina pectoris FINAL DX: PRINCIPAL: Z01.818 Encounter for other preprocedural examination SECONDARY: I10 Essential (primary) hypertension I25.10 Atherosclerotic heart disease of [place] coronary artery without angina pectoris K21.9 Gastro-esophageal reflux disease without esophagitis PYMT PROC APC STAT DESCRIPTION DOCTOR NAME DATE NOTE: The code number assigned matches the documented diagnosis and / or procedure in the patient's chart. However, the narrative phrase printed from the coding software may appear abbreviated, or result in slightly different terminology. Coded By: Marisela Lawrence Date Saved: 09/06/2019 09:20 am [facility] Progress Note - Nurseon 08-09 Progress Note - Nurse chart reviewed per Dr Akbar anesthesiologist, and cleared for surgery on 09/25/2019 [Electronically Signed on: 09/04/2019 14:30 EDT] Nimco Albarado RN [Verified on: 09/04/2019 14:30 EDT] Nimco Albarado RN [facility] Progress Note - Nurse Xin at Dr Aydin rosario notified that pt has positive urine culture. [Electronically Signed on: 09/04/2019 13:37 EDT] Dionne Yun RN [Verified on: 09/04/2019 13:37 EDT] Dionne Yun RN [facility] Provider Orderson 09-04-2019 Provider Orders [id number] [facility] C Urineon 09-03-2019 C Urine Urine Culture [...] S <=4 Verified Tri/Sulf S <=2/38 Verified [facility] Comment on above: Performed By: #### 1 [id number], [id number], [id number] #### [facility] (DEFAULT) [address] [place] [address] C MRSA Screenon 09-02-2019 C MRSA Screen Negative Normal [facility] Comment on above: Performed By: #### 1 [id number] #### [facility] (DEFAULT) [address] [place] [address] 23174 .Auto Diff 1on 09-01-2019 Auto [place] % 10 % Normal 1-12 [facility] Comment on above: Performed By: #### 7 226094, [id number], [id number] #### [facility] (DEFAULT) [address] [place] [address] 79700 Baso Abs# 0.0 x10 Normal 0.0-0.2 [facility] Comment on above: Performed By: #### 7 770566, [id number], [id number] #### [facility] (DEFAULT) [address] [place] [address] 73158 Basophils/100 WBC (Bld) 0.3 % Normal 0.2-2.0 [facility] Comment on above: Performed By: #### 7 559059, [id number], [id number] #### [facility] (DEFAULT) [address] [place] [address] 45421 Eos Abs# 0.1 x10 Normal 0.0-0.4 [facility] Comment on above: Performed By: #### 7 753199, 37924740, [id number] #### [facility] (DEFAULT) [address] [place] [address] 62192 Eosinophils/100 WBC (Bld) 0.9 % Normal 0.9-4.0 [facility] Comment on above: Performed By: #### 7 353208, 45178348, [id number] #### [facility] (DEFAULT) [address] [place] [address] 80787 Lymphocytes (Bld) [#/Vol] 1.0 x10 Low 1.3-2.9 [facility] Comment on above: Performed By: #### 7 317043, 25898535, [id number] #### [facility] (DEFAULT) [address] [place] [address] 84478 Lymphocytes/100 WBC (Bld) 10 % Low 14-48 [facility] Comment on above: Performed By: #### 7 084558, 83954710, [id number] #### [facility] (DEFAULT) [address] [place] [address] [place] Abs# 1.0 x10 High 0.0-0.8 [facility] Comment on above: Performed By: #### 7 431634, [id number], [id number] #### [facility] (DEFAULT) [address] [place] [address] Neut Abs# 8.0 x10 Normal 1.5-9.2 [facility] Comment on above: Performed By: #### 7 219919, 87556941, [id number] #### [facility] (DEFAULT) [address] [place] [address] Neutrophils/100 WBC (Bld) 79 % Normal 44-88 [facility] Comment on above: Performed By: #### 7 754990, 93385178, [id number] #### [facility] (DEFAULT) [address] [place] [address] Standardon 09-01-2019 eGFR Non AA 44 mL/min/1.73m2 [facility] Comment on above: Performed By: #### 7 443170, 64863963, [id number] #### [facility] (DEFAULT) [address] [place] [address] eGFR AA 54 mL/min/1.73m2 [facility] Comment on above: Result Comment: Emts kody Kidney disease could be indicated at eGFRs of less than 60 ml/min/1.73m2. Kidney Failure is indicated at less than 15 ml/min/1.73m2 Performed By: #### 7 024182, 44106357, [id number] #### [facility] (DEFAULT) [address] [place] [address] Anion gap [Moles/Vol] 15.0 mmol/L Normal 5.0-19.0 [facility] Comment on above: Performed By: #### 7 446958, 75925911, [id number] #### [facility] (DEFAULT) [address] [place] [address] Calcium [Mass/Vol] 9.2 mg/dL Normal 8.9-10.3 [facility] Comment on above: Performed By: #### 7 358948, 20020016, [id number] #### [facility] (DEFAULT) [address] [place] [address] 24687 Chloride [Moles/Vol] 101 mmol/L Normal 101-111 [facility] Comment on above: Performed By: #### 7 565067, 41068088, [id number] #### [facility] (DEFAULT) [address] [place] [address] 89555 CO2 [Moles/Vol] 25 mmol/L Normal 21-32 [facility] Comment on above: Performed By: #### 7 959201, 77320808, [id number] #### [facility] (DEFAULT) [address] [place] [address] 30390 Creatinine [Mass/Vol] 1.17 mg/dL Normal 0.60-1.30 [facility] Comment on above: Performed By: #### 7 886092, 19474193, [id number] #### [facility] (DEFAULT) [address] [place] [address] 18063 Glucose [Mass/Vol] 94.0 mg/dL Normal 74.0-118.0 [facility] Comment on above: Performed By: #### 7 959582, 17268128, [id number] #### [facility] (DEFAULT) [address] [place] [address] 40778 Osmolality [Osmolality] 276 mOsm/L [facility] Comment on above: Performed By: #### 7 311437, 27282291, [id number] #### [facility] (DEFAULT) [address] [place] [address] 47435 Potassium [Moles/Vol] 4.0 mmol/L Normal 3.6-5.1 [facility] Comment on above: Performed By: #### 7 236665, 75378210, [id number] #### [facility] (DEFAULT) [address] [place] [address] 29260 Sodium [Moles/Vol] 137.0 mmol/L Normal 136.0-144 . 0 [facility] Comment on above: Performed By: #### 7 939931, 37453288, [id number] #### [facility] (DEFAULT) [address] [place] [address] Urea nitrogen [Mass/Vol] 20 mg/dL Normal 8-26 [facility] Comment on above: Performed By: #### 7 965456, 47914347, [id number] #### [facility] (DEFAULT) [address] [place] [address] Urea nitrogen/Creatinine [Mass ratio] 17.0 mg/mg High 4.6-16.2 [facility] Comment on above: Performed By: #### 7 724920, 44805403, [id number] #### [facility] (DEFAULT) [address] [place] [address] CBC w/ Auto Diffon 0 Erythrocyte distribution width (RBC) [Ratio] 13.9 % Normal 11.5-15.0 [facility] Comment on above: Performed By: #### 7 175897, 39804140, [id number] #### [facility] (DEFAULT) [address] [place] [address] Hematocrit (Bld) [Volume fraction] 38.5 % Normal 33.7-40.4 [facility] Comment on above: Performed By: #### 7 355122, 68707552, [id number] #### [facility] (DEFAULT) [address] [place] [address] Hemoglobin (Bld) [Mass/Vol] 12.6 g/dL Normal 11.3-15.9 [facility] Comment on above: Performed By: #### 7 134835, 88458684, [id number] #### [facility] (DEFAULT) [address] [place] [address] Man Diff? Auto Normal [facility] Comment on above: Performed By: #### 7 841003, 84487261, [id number] #### [facility] (DEFAULT) [address] [place] [address] MCH (RBC) [Entitic mass] 33 pg Normal 24-34 [facility] Comment on above: Performed By: #### 7 749028, 89222189, [id number] #### [facility] (DEFAULT) [address] [place] [address] 01635 MCHC (RBC) [Mass/Vol] 33 g/dL Normal 26-37 [facility] Comment on above: Performed By: #### 7 360926, 77025937, [id number] #### [facility] (DEFAULT) [address] [place] [address] 52928 MCV (RBC) [Entitic vol] 101 fL High 81-100 [facility] Comment on above: Performed By: #### 7 066184, 80079031, [id number] #### [facility] (DEFAULT) [address] [place] [address] 80150 Platelet mean volume (Bld) [Entitic vol] 9.5 fL Normal 6.3-10.2 [facility] Comment on above: Performed By: #### 7 585288, 67224596, [id number] #### [facility] (DEFAULT) [address] [place] [address] 86477 Platelets (Bld) [#/Vol] 292 x10 Normal 138-427 [facility] Comment on above: Performed By: #### 7 692938, 44954385, [id number] #### [facility] (DEFAULT) [address] [place] [address] 23737 RBC (Bld) [#/Vol] 3.82 x10 Normal 3.70-5.30 [facility] Comment on above: Performed By: #### 7 887847, 98438777, [id number] #### [facility] (DEFAULT) [address] [place] [address] 04645 WBC (Bld) [#/Vol] 10.1 x10 Normal 3.5-10.5 [facility] Comment on above: Performed By: #### 7 925483, 88952167, 1564388414 #### [facility] (DEFAULT) [address] [place] [address] 77148 UA Snpfn3aq 09-01-2019 RBC (U) [#/Vol] None Seen [facility] Comment on above: Order Comment: Urina lysis Microscopic order added on by [employer] system. Performed By: #### 1 [id number], [id number], [id number] #### [facility] (DEFAULT) [address] [place] [address] UA Amorph. 1+ [facility] Comment on above: Order Comment: Urina lysis Microscopic order added on by [employer] system. Performed By: #### 1 [id number], 79540629, 3237515 #### [facility] (DEFAULT) [address] [place] [address] UA Bacteria 4+ [facility] Comment on above: Order Comment: Urina lysis Microscopic order added on by [employer] system. Performed By: #### 1 [id number], [id number], 9109487 #### [facility] (DEFAULT) [address] [place] [address] UA Squam Epi Moderate [facility] Comment on above: Order Comment: Urina lysis Microscopic order added on by [employer] system. Performed By: #### 1 [id number], 14957654, 5514510 #### [facility] (DEFAULT) [address] [place] [address] UA WBC 15-20 [facility] Comment on above: Order Comment: Urina lysis Microscopic order added on by [employer] system. Performed By: #### 1 [id number], 12554619, 3848595 #### [facility] (DEFAULT) [address] [place] [address] UA w Culture if Ind Standard on 09-01-2019 Breakpoint UA [facility] Comment on above: Performed By: #### 1 [id number], 95665712, 2093440 #### [facility] (DEFAULT) [address] [place] [address] Color (U) Yellow [facility] Comment on above: Performed By: #### 1 [id number], 91977349, 9149018 #### [facility] (DEFAULT) [address] [place] [address] 60641 Culture? Yes Normal [facility] Comment on above: Performed By: #### 1 [id number], 63277435, 3568104 #### [facility] (DEFAULT) [address] [place] [address] 00201 Glucose (U) [Mass/Vol] Negative Normal [facility] Comment on above: Performed By: #### 1 [id number], 08815269, 2624994 #### [facility] (DEFAULT) [address] [place] [address] 42670 Ketones Ql (U) Negative Normal [facility] Comment on above: Performed By: #### 1 [id number], 80374304, [id number] #### [facility] (DEFAULT) [address] [place] [address] 30499 Micro? Indicated [facility] Comment on above: Performed By: #### 1 [id number], 41027729, 5266332 #### [facility] (DEFAULT) [address] [place] [address] 94536 UA Bilirubin Negative Normal [facility] Comment on above: Performed By: #### 1 842244315, 69949095, 8543032 #### [facility] (DEFAULT) [address] [place] [address] 07189 UA Blood TRACE Abnormal NEGATIVE [facility] Comment on above: Performed By: #### 1 [id number], 03144051, 6890484 #### [facility] (DEFAULT) [address] [place] [address] 40597 UA Clarity CLEAR Normal CLEAR [facility] Comment on above: Performed By: #### 1 [id number], 73078853, 6746954 #### [facility] (DEFAULT) [address] [place] [address] 51501 UA Leuk Est MODERATE Abnormal NEGATIVE [facility] Comment on above: Performed By: #### 1 [id number], 71163083, 5510298 #### [facility] (DEFAULT) [address] [place] [address] 49551 UA Nitrite Positive Abnormal NEGATIVE [facility] Comment on above: Performed By: #### 1 [id number], 12332316, 4812711 #### [facility] (DEFAULT) [address] [place] [address] 78993 UA pH 5.5 Normal 5-8 [facility] Comment on above: Performed By: #### 1 [id number], 40122136, 8323366 #### [facility] (DEFAULT) [address] [place] [address] 96838 UA Protein Negative Normal NEGATIVE [facility] Comment on above: Performed By: #### 1 [id number], 44163888, 1468022 #### [facility] (DEFAULT) [address] [place] [address] 82590 UA Spec Grav 1.025 Normal 1.001-1.[address] [place] [address] Comment on above: Performed By: #### 1 [id number], 76974106, 6510696 #### [facility] (DEFAULT) [address] [place] [address] 12465 UA Urobilinogen 0.2 mg/dL Normal 0.2-1.0 [facility] Comment on above: Performed By: #### 1 [id number], 89492708, 3184364 #### [facility] (DEFAULT) [address] [place] [address] 10766 Urine Source Clean Catch Normal [facility] Comment on above: Performed By: #### 1 [id number], 71368690, 7732994 #### [facility] (DEFAULT) [address] [place] [address] 49965 JOINT PAIN INJECTION 09-06 JOINT PAIN INJECTION [facility] Department of Radiology [address] [place] [id number] Patient Name: DELICIA HSU : 1935 Sex: F Age: Race: White Pt. Location: 84 Patient Status: D Ordered Date: 08/08/2018 3:50:00 PM Completed Date: 09/06/2018 03:43 PM Requesting Provider: HERMELINDO HILLMAN Attending Provider: HERMELINDO HILLMAN Report Copy To: GYPSY MCMAHON Signs & Symptoms: M16.12 Unilateral primary osteoarthritis, left hip I10 History: [place] Comments: , Dr. Ochoa , Body Part: [...] guidance. Electronically signed by:Christy Ochoa. Transcribed by: [email or web address], User Resident: Electronically Signed by: CHRISTY OCHOA @ 09/09/2018 05:57 PM Normal [facility] Comment on above: Order Comment: , Dr. Ochoa , Body Part: Hip , Side: LEFT , Dr. Ochoa , Body Part: Hip , Side: LEFT , , , Ordering Provider - HERMELINDO HILLMAN MD , CT 3D LOWER EXTREMITY WO CON TRAST LEFTon 08-02-2018 CT 3D LOWER EXTREMITY WO CONTRAST LEFT [facility] Department of Radiology [address] [place] [phone] Patient Name: DELICIA HSU : 1935 Sex: F Age: Race: White Pt. 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 MEDICARE NO PC REQ [...] arthritis. Electronically signed by:Coy Jerome. Transcribed by: [email or web address], User Resident: Electronically Signed by: COY JEROME @ 08/08/2018 02:20 PM Normal [facility] Comment on above: Order Comment: , Jessie fullerrafa left hip healing HIP LEFT 1 OR 2 VWS WITH PEL VISon 03-18-2018 HIP LEFT 1 OR 2 VWS WITH PELVIS [facility] Department of Radiology [address] [place] [phone] Patient Name: DELICIA HSU : 1935 Sex: F Age: Race: White Pt. 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 Transcribed by: [email or web address], User Resident: Electronically Signed by: COY JEROME @ 03/18/2018 02:19 PM Normal [facility] Comment on above: Order Comment: , , = ========= , Ordering Provider - MIRTHA VELÁSQUEZ PA-C , HIP LEFT 1 OR 2 VWS WITH PEL VISon 01-10-2018 HIP LEFT 1 OR 2 VWS WITH PELVIS [facility] Department of Radiology [address] [place] [id number] Patient Name: DELICIA HSU : 1935 [...] arthritis. Electronically signed by:Manjit Whatley. Transcribed by: [email or web address], User Resident: Electronically Signed by: MANJIT WHATLEY @ 01/10/2018 04:38 PM Normal [facility] Comment on above: Order Comment: , Carmella ws (X-RAY, HIP): Radiologic Protocol , Views (X-RAY, HIP): Radiologic Protocol , , , Ordering Provider Brennan VELÁSQUEZ PA-C , HIP LEFT 1 OR 2 VWS WITH PEL VISon 11-01-2017 HIP LEFT 1 OR 2 VWS WITH PELVIS [facility] Department of Radiology [address] [place] [id number] Patient Name: DELICIA HSU : 1935 Sex: F Age: Race: White Pt. 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 Electronically signed by:Gerson Rodriguez. Transcribed by: [email or web address], User Resident: Electronically Signed by: GERSON RODRIGUEZ @ 11/01/2017 03:25 PM Normal [facility] Comment on above: Order Comment: , Carmella ws (X-RAY, HIP): Radiologic Protocol , Views (X-RAY, HIP): Radiologic Protocol , , , Ordering Provider - MIRTHA VELÁSQUEZ PA-C , HIP LEFT 1 OR 2 VWS WITH PEL VISon 09-21-2017 HIP LEFT 1 OR 2 VWS WITH PELVIS [facility] Department of Radiology [address] [place] [id number] Patient Name: DELICIA HSU : 1935 [...] fracture Electronically signed by:Coy Jerome. Transcribed by: [email or web address], User Resident: Electronically Signed by: COY JEROME @ 09/21/2017 03:27 PM Normal [facility] Comment on above: Order Comment: , , = ========= , Ordering Rebeka VELÁSQUEZ PA-C , Vital Signs Date Time Vital Sign Value Performing Clinician Facility 05-24-2023 13:35-0400 Body height 177.8 cm MD Gypsy Mcmahon Work Phone: [facility] 05-24-2023 13:35-0400 Body mass index (BMI) [Ratio] 18.8 kg/m2 MD Gypsy Mcmahon Work Phone: [facility] 05-24-2023 13:35-0400 Body temperature 97.7 [degF] MD Gypsy Mcmahon Work Phone: [facility] 05-24-2023 13:35-0400 Body weight 59.42 kg MD Gypsy Mcmahon Work Phone: [facility] 05-24-2023 13:35-0400 Diastolic blood pressure 54 mm[Hg] MD Gypsy Mcmahon Work Phone: [facility] 05-24-2023 13:35-0400 Heart rate 63 /min MD Gypsy Mcmahon Work Phone: [facility] 05-24-2023 13:35-0400 Systolic blood pressure 127 mm[Hg] MD Gypsy Mcmahon Work Phone: [facility] 05-21-2023 10:26-0400 Body height 177.8 cm MD Gypsy Mcmahon Work Phone: [facility] 05-21-2023 09:54-0400 Body mass index (BMI) [Ratio] 18.6 kg/m2 MD Gypsy Mcmahon Work Phone: [facility] 05-21-2023 09:54-0400 Body weight 58.96 kg MD Gypsy Mcmahon Work Phone: [facility] 05-05-2023 16:40-0400 Diastolic blood pressure 71 mm[Hg] MD Jacinto Max Work Phone: [facility] 05-05-2023 16:40-0400 Systolic blood pressure 170 mm[Hg] MD Jacinto Max Work Phone: [facility] 05-05-2023 16:36-0400 Body height 177.8 cm MD Jacinto Max Work Phone: [facility] 05-05-2023 16:36-0400 Body temperature 98.1 [degF] MD Jacinto Max Work Phone: [facility] 05-05-2023 16:36-0400 Body weight 59.87 kg MD Jacinto Max Work Phone: [facility] 05-05-2023 16:36-0400 Heart rate 71 /min MD Jacinto Max Work Phone: [facility] 05-05-2023 16:36-0400 Respiratory rate 18 /min MD Jacinto Max Work Phone: [facility] 05-05-2023 16:36-0400 SaO2% (BldA) [Mass fraction] 98 % MD Jacinto Max Work Phone: [facility] 04-15-2023 13:30-0500 Body height 167.64 cm MD Jacinto Max Work Phone: [facility] 04-15-2023 13:30-0500 Body mass index (BMI) [Ratio] 20.8 kg/m2 MD Jacinto Max Work Phone: [facility] 04-15-2023 13:30-0500 Body temperature 97.2 [degF] MD Jacinto Max Work Phone: [facility] 04-15-2023 13:30-0500 Body weight 58.57 kg MD Jacinto Max Work Phone: [facility] 04-15-2023 13:30-0500 Diastolic blood pressure 75 mm[Hg] MD Jacinto Max Work Phone: [facility] 04-15-2023 13:30-0500 Heart rate 60 /min MD Jacinto Max Work Phone: [facility] 04-15-2023 13:30-0500 Systolic blood pressure 165 mm[Hg] MD Jacinto Max Work Phone: [facility] 02-26-2023 10:00-0500 Body height 167.64 cm MD Jacinto Max Work Phone: [facility] 02-26-2023 10:00-0500 Diastolic blood pressure 76 mm[Hg] MD Jacinto Max Work Phone: [facility] 02-26-2023 10:00-0500 Systolic blood pressure 156 mm[Hg] MD Jacinto Max Work Phone: [facility] 02-25-2023 10:15-0500 Body height 175.26 cm MD Jacinto Max Work Phone: [facility] 02-25-2023 10:15-0500 Body weight 59.1 kg MD Jacinto Max Work Phone: [facility] 02-25-2023 10:02-0500 Diastolic blood pressure 74 mm[Hg] MD Jacinto Max Work Phone: [facility] 02-25-2023 10:02-0500 Heart rate 67 /min MD Jacinto Max Work Phone: [facility] 02-25-2023 10:02-0500 Systolic blood pressure 157 mm[Hg] MD Jacinto Max Work Phone: [facility] 02-18-2023 14:00-0500 Body height 167.64 cm Jacinto Max Other [facility] 02-18-2023 14:00-0500 Body mass index (BMI) [Ratio] 20.66 kg/m2 Jacinto Max Other [facility] Other 02-18-2023 14:00-0500 Body temperature 97.2 [degF] Jacinto Max Other [facility] Other 02-18-2023 14:00-0500 Body weight 58.06 kg Jacinto Max Other [facility] Other 02-18-2023 14:00-0500 Body weight 58.05 kg MD Jacinto Max Work Phone: [facility] 02-18-2023 14:00-0500 Diastolic blood pressure 66 mm[Hg] Jacinto Max Other [facility] 02-18-2023 14:00-0500 Systolic blood pressure 150 mm[Hg] Jacinto Max Other [facility] 02-16-2023 13:30-0500 Body height 167.64 cm Gypsy Mcmahon Other [facility] 02-16-2023 13:30-0500 Body mass index (BMI) [Ratio] 20.66 kg/m2 Gypsy Mcmahon Other [facility] Other 02-16-2023 13:30-0500 Body weight 58.06 kg Gypsy Mcmahon Other [facility] Other 02-16-2023 13:30-0500 Body weight 58.05 kg MD Jacinto Max Work Phone: [facility] 01-09-2024 13:30-0500 Diastolic blood pressure 68 mm[Hg] Gypsy Mcmahon Other [facility] 02-16-2023 13:30-0500 SaO2% (BldA) [Mass fraction] 96 % Gypsy Mcmahon Other [facility] Other 02-16-2023 13:30-0500 Systolic blood pressure 140 mm[Hg] Gypsy Mcmahon Other [facility] 02-04-2023 09:09-0500 Heart rate 84 /min MALATHI DEB [facility] 02-04-2023 09:09-0500 SaO2% (BldA) [Mass fraction] 95 % MALATHI DEB [facility] 02-04-2023 09:08-0500 Diastolic blood pressure 88 mm[Hg] MALATHI DEB [facility] 02-04-2023 09:08-0500 Mean blood pressure 121 mm[Hg] MAALTHI DEB [facility] 02-04-2023 09:08-0500 Systolic blood pressure 188 mm[Hg] MALATHI DEB [facility] 02-04-2023 09:08-0500 Respiratory rate 20 /min MALATHI DEB [facility] 02-04-2023 09:08-0500 Body temperature 97.7 [degF] MALATHI DEB [facility] 02-03-2023 09:15-0500 Heart rate 77 /min MALATHI DEB [facility] 02-03-2023 09:15-0500 SaO2% (BldA) [Mass fraction] 97 % MALATHI DEB [facility] 02-03-2023 09:14-0500 Respiratory rate 18 /min MALATHI DEB [facility] 02-03-2023 09:14-0500 Diastolic blood pressure 97 mm[Hg] MALATHI DEB [facility] 02-03-2023 09:14-0500 Mean blood pressure 130 mm[Hg] MALATHI DEB [facility] 02-03-2023 09:14-0500 Systolic blood pressure 197 mm[Hg] MALATHI DEB [facility] 02-03-2023 09:13-0500 Body temperature 98.06 [degF] MALATHI DEB [facility] 02-02-2023 09:10-0500 Heart rate 75 /min MALATHI DEB [facility] 02-02-2023 09:10-0500 SaO2% (BldA) [Mass fraction] 93 % MALATHI DEB [facility] 02-02-2023 09:09-0500 Respiratory rate 20 /min MALATHI DEB [facility] 02-02-2023 09:08-0500 Diastolic blood pressure 87 mm[Hg] MALATHI DEB [facility] 02-02-2023 09:08-0500 Mean blood pressure 123 mm[Hg] MALATHI DEB [facility] 02-02-2023 09:08-0500 Systolic blood pressure 194 mm[Hg] MALATHI DEB [facility] 02-02-2023 09:08-0500 Body temperature 97.7 [degF] MALATHI DEB [facility] 02-01-2023 09:50-0500 Heart rate 77 /min MALATHI DEB [facility] 02-01-2023 09:50-0500 Mean blood pressure 115 mm[Hg] MALATHI DEB [facility] 02-01-2023 09:10-0500 Heart rate 84 /min MALATHI DEB [facility] 01-29-2023 11:26-0500 Heart rate 75 /min MALATHI DEB [facility] 01-29-2023 11:26-0500 SaO2% (BldA) [Mass fraction] 95 % MALATHI DEB [facility] 01-29-2023 11:26-0500 Respiratory rate 16 /min MALATHI DEB [facility] 01-29-2023 11:25-0500 Diastolic blood pressure 83 mm[Hg] MALATHI DEB [facility] 01-29-2023 11:25-0500 Mean blood pressure 108 mm[Hg] MALATHI DEB [facility] 01-29-2023 11:25-0500 Systolic blood pressure 158 mm[Hg] MALATHI DEB [facility] 01-29-2023 11:25-0500 Body temperature 98.06 [degF] MALATHI DEB [facility] 01-29-2023 10:54-0500 Heart rate 74 /min MALATHI DEB [facility] 01-29-2023 10:54-0500 SaO2% (BldA) [Mass fraction] 97 % MALATHI DEB [facility] 01-29-2023 10:54-0500 Respiratory rate 16 /min MALATHI VIEIRA [facility] 01-29-2023 10:53-0500 Body temperature 97.52 [degF] MALATHI VIEIRA [facility] 01-29-2023 10:53-0500 Diastolic blood pressure 84 mm[Hg] MALATHI VIEIRA [facility] 01-29-2023 10:53-0500 Mean blood pressure 104 mm[Hg] MALATHI VIEIRA [facility] 01-29-2023 10:53-0500 Systolic blood pressure 146 mm[Hg] MALATHI VIEIRA [facility] 01-12-2023 13:30-0500 Body height 167.64 cm Hunter Brown Other [facility] Other 01-12-2023 13:30-0500 Body mass index (BMI) [Ratio] 22 kg/m2 Hunter Brown Other [facility] Other 01-12-2023 13:30-0500 Body weight 61.83 kg Hunter Brown Other [facility] Other 01-12-2023 13:30-0500 Diastolic blood pressure 60 mm[Hg] Hunter Brown Other [facility] Other 01-12-2023 13:30-0500 Systolic blood pressure 137 mm[Hg] Hunter Brown Other [facility] Other 01-05-2023 11:30-0500 Body height 167.64 cm Gypsy Mcmahon Other [facility] Other 01-05-2023 11:30-0500 Body mass index (BMI) [Ratio] 21.63 kg/m2 Gypsy Mcmahon Other [facility] Other 01-05-2023 11:30-0500 Body weight 60.78 kg Gypsy Mcmahon Other [facility] Other 01-05-2023 11:30-0500 Diastolic blood pressure 72 mm[Hg] Gypsy Mcmahon Other [facility] Other 01-05-2023 11:30-0500 Systolic blood pressure 162 mm[Hg] Gypsy Mcmahon Other [facility] Other 12-28-2022 13:30-0500 Body height 167.64 cm Malathi Velázquez Other [facility] Other 12-28-2022 13:30-0500 Body mass index (BMI) [Ratio] 19.98 kg/m2 Malathi Velázquez Other [facility] Other 12-28-2022 13:30-0500 Body weight 56.16 kg Malathi Velázquez Other [facility] Other 12-28-2022 13:30-0500 Diastolic blood pressure 78 mm[Hg] Malathi Velázquez Other [facility] Other 12-28-2022 13:30-0500 Systolic blood pressure 146 mm[Hg] Malathi Velázquez Other [facility] Other 12-15-2022 11:15-0500 Body height 167.64 cm Gypsy Mcmahon Other [facility] Other 12-15-2022 11:15-0500 Body mass index (BMI) [Ratio] 21.53 kg/m2 Gypsy Mcmahon Other [facility] Other 12-15-2022 11:15-0500 Body weight 60.51 kg Gypsy Mcmahon Other [facility] Other 12-15-2022 11:15-0500 Diastolic blood pressure 73 mm[Hg] Gypsy Mcmahon Other [facility] Other 12-15-2022 11:15-0500 Systolic blood pressure 178 mm[Hg] Gypsy Mcmahon Other [facility] Other 09-22-2022 14:14-0400 Blood Pressure Location MALATHI GUERRERORY [facility] 09-22-2022 14:14-0400 Diastolic blood pressure 90 mm[Hg] MALATHI DEB [facility] 09-22-2022 14:14-0400 Heart rate 78 /min MALATHI DEB [facility] 09-22-2022 14:14-0400 Systolic blood pressure 142 mm[Hg] MALATHI DEB [facility] 09-01-2022 14:15-0400 Body height 167.64 cm Gypsy Mcmahon Other [facility] Other 09-01-2022 14:15-0400 Body mass index (BMI) [Ratio] 21.14 kg/m2 Gypsy Mcmahon Other [facility] Other 09-01-2022 14:15-0400 Body weight 59.42 kg Gypsy Mcmahon Other [facility] Other 09-01-2022 14:15-0400 Diastolic blood pressure 56 mm[Hg] Gypsy Mcmahon Other [facility] Other 09-01-2022 14:15-0400 Systolic blood pressure 132 mm[Hg] Gypsy Mcmahon Other [facility] Other 06-09-2022 13:42-0400 Diastolic blood pressure 71 mm[Hg] Marvin MSI [facility] 06-09-2022 13:42-0400 Heart rate 59 /min Marvin MSI [facility] 06-09-2022 13:42-0400 Systolic blood pressure 183 mm[Hg] Marvin KWON [facility] 04-24-2022 11:30-0400 Body height 167.64 cm Hunter Brown Other [facility] Other 04-24-2022 11:30-0400 Body mass index (BMI) [Ratio] 22.11 kg/m2 Hunter Brown Other [facility] Other 04-24-2022 11:30-0400 Body weight 62.14 kg Hunter Brown Other [facility] Other 04-24-2022 11:30-0400 Diastolic blood pressure 70 mm[Hg] Hunter Brown Other [facility] Other 04-24-2022 11:30-0400 Systolic blood pressure 159 mm[Hg] Hunter Brown Other [facility] Other 04-07-2022 14:15-0500 Body height 167.64 cm Gypsy Mcmahon Other [facility] Other 04-07-2022 14:15-0500 Body mass index (BMI) [Ratio] 21.79 kg/m2 Gypsy Mcmahon Other [facility] Other 04-07-2022 14:15-0500 Body weight 61.24 kg Gypsy Mcmahon Other [facility] Other 04-07-2022 14:15-0500 Diastolic blood pressure 62 mm[Hg] Gypsy Mcmahon Other [facility] Other 04-07-2022 14:15-0500 Systolic blood pressure 130 mm[Hg] Gypsy Mcmahon Other [facility] Other 03-11-2022 13:35-0500 Body temperature 97.5 [degF] MD Gypsy Mcmahon Work Phone: [facility] 03-11-2022 13:35-0500 Diastolic blood pressure 61 mm[Hg] MD Gypsy Mcmahon Work Phone: [facility] 03-11-2022 13:35-0500 Heart rate 60 /min MD Gypsy Mcmahon Work Phone: [facility] 03-11-2022 13:35-0500 Respiratory rate 18 /min MD Gypsy Mcmahon Work Phone: [facility] 03-11-2022 13:35-0500 SaO2% (BldA) [Mass fraction] 96 % MD Gpysy Mcmahon Work Phone: [facility] 03-11-2022 13:35-0500 Systolic blood pressure 135 mm[Hg] MD Gypsy Mcmahon Work Phone: [facility] 02-16-2022 10:45-0500 Body height 167.64 cm Gypsy Mcmahon Other [facility] Other 02-16-2022 10:45-0500 Body mass index (BMI) [Ratio] 21.46 kg/m2 Gypsy Mcmahon Other [facility] Other 02-16-2022 10:45-0500 Body weight 60.33 kg Gypsy Mcmahon Other [facility] Other 02-16-2022 10:45-0500 Diastolic blood pressure 70 mm[Hg] Gypsy Mcmahon Other [facility] Other 02-16-2022 10:45-0500 Systolic blood pressure 120 mm[Hg] Gypsy Mcmahon Other [facility] Other 02-11-2022 12:00-0500 Body height 172.72 cm Hunter Brown Other [facility] Other 02-11-2022 12:00-0500 Body mass index (BMI) [Ratio] 20.83 kg/m2 Hunter Brown Other [facility] Other 02-11-2022 12:00-0500 Body weight 62.14 kg Hunter Brown Other [facility] Other 02-11-2022 12:00-0500 Diastolic blood pressure 68 mm[Hg] Hunter Brown Other [facility] Other 02-11-2022 12:00-0500 Systolic blood pressure 144 mm[Hg] Hunter Brown Other [facility] Other 01-05-2022 10:30-0500 Body height 172.72 cm Hunter Brown Other [facility] Other 01-05-2022 10:30-0500 Body mass index (BMI) [Ratio] 22.04 kg/m2 Hunter Brown Other [facility] Other 01-05-2022 10:30-0500 Body weight 65.77 kg Hunter Brown Other [facility] Other 01-05-2022 10:30-0500 Diastolic blood pressure 78 mm[Hg] Hunter Brown Other [facility] Other 01-05-2022 10:30-0500 Systolic blood pressure 166 mm[Hg] Hunter Brown Other [facility] Other 03-27-2021 12:00-0500 Body height 172.72 cm Giana Griffiths Other [facility] Other 03-27-2021 12:00-0500 Body mass index (BMI) [Ratio] 22.96 kg/m2 Giana Griffiths Other [facility] Other 03-27-2021 12:00-0500 Body weight 68.49 kg Giana Rhoadeskes Other [facility] Other 01-27-2021 10:45-0500 Body height 172.72 cm Giana Rhoadeskes Other [facility] Other 01-27-2021 10:45-0500 Body mass index (BMI) [Ratio] 24.48 kg/m2 Giana Rhoadeskes Other [facility] Other 01-27-2021 10:45-0500 Body weight 73.03 kg Giana Griffiths Other [facility] Other Encounters Encounter Date Encounter Type Care Provider Facility Start: 06-23-2023 End: 06-24-2023 ambulatory [facility] Start: 06-17-2023 End: 06-17-2023 ambulatory [facility] Start: 06-15-2023 End: 06-16-2023 ambulatory MALATHI VIEIRA Facility:[facility] Start: 06-15-2023 End: 06-15-2023 Patient encounter procedure MALATHI VIEIRA [facility] Start: 05-28-2023 End: 05-28-2023 ambulatory Monie Wallace Facility:[facility] Start: 05-28-2023 End: 05-28-2023 ambulatory MD Gypsy Mcmahon Work Phone: [facility] Work Phone: Start: 05-28-2023 End: 05-28-2023 Patient encounter procedure MD Gypsy Mcmahon Work Phone: [facility]-CT Scan [facility] [place] Work Phone: Start: 05-25-2023 Non-patient / Non-visit MD Gypsy Mcmahon Work Phone: [facility] Work Phone: Start: 05-24-2023 End: 05-24-2023 Patient encounter procedure MD Gypsy Mcmahon Work Phone: [facility] Infectious Disease Work Phone: Start: 05-21-2023 End: 05-21-2023 Patient encounter procedure MD Gypsy Mcmahon Work Phone: [facility] Work Phone: Start: 05-06-2023 Non-patient / Non-visit MD Gypsy Mcmahon Work Phone: [facility] Work Phone: Start: 05-05-2023 End: 05-05-2023 Emergency department patient visit Marvin Garcia Facility:[facility] Start: 05-05-2023 End: 05-05-2023 Emergency department patient visit MD Jacinto Max Work Phone: [facility]-Emergency Room Work Phone: Start: 05-01-2023 Non-patient / Non-visit MD Jacinto Max Work Phone: [facility] Work Phone: Start: 04-15-2023 End: 04-15-2023 Patient encounter procedure MD Jacinto Max Work Phone: [facility] Infectious Disease Work Phone: Start: 04-06-2023 Non-patient / Non-visit MD Jacinto Max Work Phone: [facility] Work Phone: Start: 03-12-2023 End: 03-12-2023 ambulatory Jacinto Max Other [facility] Other Start: 03-12-2023 Telephone encounter Jacinto Bustamante Infect[facility] Start: 03-11-2023 End: 03-11-2023 ambulatory Jacinto Max Other [facility] Other Start: 03-11-2023 Telephone encounter Jacinto Bustamante Infect[facility] Start: 03-02-2023 End: 03-02-2023 ambulatory Gypsy Mcmahon Other [facility] Other Start: 03-02-2023 Telephone encounter Gypsy Mcmahon [facility] Start: 02-26-2023 End: 02-26-2023 Patient encounter procedure MD Jacinto Max Work Phone: [facility]- Start: 02-25-2023 End: 02-25-2023 ambulatory Jacinto Max Facility:[facility] Start: 02-25-2023 End: 02-25-2023 ambulatory MD Jacinto Max Work Phone: [facility] Work Phone: Start: 02-25-2023 End: 02-25-2023 Discharged Recurring MD Jacinto Max Work Phone: [facility]-Infusion Therapy - O/P Work Phone: Start: 02-18-2023 End: 02-18-2023 ambulatory Jacinto Max Other [facility] Other Start: 02-18-2023 Office outpatient ne w 45 minutes Jacinto Max [facility] Infectious Disease Start: 02-18-2023 End: 02-18-2023 Patient encounter procedure MD Jacinto Max Work Phone: [facility] Infectious Disease Work Phone: Start: 02-16-2023 End: 02-16-2023 ambulatory Gypsy Mcmahon Other [facility] Other Start: 02-16-2023 Office outpatient visit 15 minutes Gypsy Mcmahon [facility] Start: 02-16-2023 End: 02-16-2023 Patient encounter procedure MD Jacinto Max Work Phone: [facility] Work Phone: Start: 01-29-2023 End: 05-06-2023 ambulatory MALATHI VIEIRA Facility:[facility] Start: 01-29-2023 End: 01-29-2023 Patient encounter procedure MALATHI VIEIRA [facility] Start: 01-29-2023 End: 05-05-[address] [facility] Start: 01-26-2023 End: 01-26-2023 Patient encounter procedure MALATHISAM VIEIRA [facility] Start: 01-26-2023 End: 01-27-2023 ambulatory MALATHI VIEIRA [facility] Other Start: 01-26-2023 Telephone encounter Hunter brady [facility] Start: 01-20-2023 End: 01-20-2023 ambulatory Hunter Brown Other [facility] Other Start: 01-20-2023 Telephone encounter Hunter brady [facility] Start: 01-12-2023 End: 01-12-2023 ambulatory Hunter Brown Other [facility] Other Start: 01-12-2023 Office outpatient visit 25 minutes Hunter Brown [facility] Start: 01-12-2023 End: 01-12-2023 Patient encounter procedure MD Jacinto Max Work Phone: [facility] Work Phone: Start: 01-11-2023 End: 01-11-2023 ambulatory Gypsy Mcmahon Other [facility] Other Start: 01-11-2023 Telephone encounter Gypsy Mcmahon [facility] Start: 01-05-2023 End: 01-05-2023 ambulatory Gypsy Mcmahon Other [facility] Other Start: 01-05-2023 Telephone encounter Gypsy Mcmahon [facility] Start: 01-05-2023 Transitional care manage srvc 14 day discharge Gypsy Mcmahon [facility] Start: 01-05-2023 End: 01-05-2023 Patient encounter procedure MD Jacinto Max Work Phone: [facility] Work Phone: Start: 12-30-2022 End: 12-30-2022 ambulatory Malathi Velázquez Other [facility] Other Start: 12-30-2022 Telephone encounter Malathi arias [facility] Start: 12-28-2022 End: 12-28-2022 ambulatory Malathi Velázqeuz Other [facility] Other Start: 12-28-2022 Office outpatient visit 15 minutes Malathi Hoodcelestinaelisa [facility] Start: 12-28-2022 End: 12-28-2022 Patient encounter procedure MD Jacinto Max Work Phone: [facility] Work Phone: Start: 12-15-2022 End: 12-15-2022 ambulatory Gypsy Mcmahon Other [facility] Other Start: 12-15-2022 Office outpatient visit 15 minutes Gypsy Mcmahon [facility] Start: 12-15-2022 Telephone encounter Gypsy Mcmahon [facility] Start: 12-15-2022 End: 12-15-2022 Patient encounter procedure MD Jacinto Max Work Phone: [facility] Work Phone: Start: 11-11-2022 End: 11-11-2022 ambulatory AB [facility] Start: 10-29-2022 End: 10-29-2022 ambulatory Hunter Brown Facility:[facility] Start: 09-22-2022 End: 09-23-2022 ambulatory MALATHI VIEIRA Facility:[facility] Start: 09-22-2022 End: 09-22-2022 Patient encounter procedure MALATHI VIEIRA [facility] Start: 09-10-2022 End: 09-10-2022 ambulatory Jose G Ellington Other [facility] Other Start: 09-10-2022 Nursing evaluation o f patient and report Jose G Ellington [facility] Start: 09-08-2022 End: 09-08-2022 ambulatory Hunter Brown Other [facility] Other Start: 09-08-2022 Telephone encounter Hunter Palomo [facility] Gastroenter[facility] Start: 09-01-2022 End: 09-01-2022 ambulatory Gypsy Mcmahon Other [facility] Other Start: 09-01-2022 Office outpatient visit 15 minutes Gypsy Mcmahon [facility] Start: 08-27-2022 End: 08-27-2022 ambulatory Gypsy Mcmahon Other [facility] Other Start: 08-27-2022 Telephone encounter Gypsy Mcmahon [facility] Start: 06-30-2022 End: 06-30-2022 ambulatory [facility] Start: 06-09-2022 End: 06-09-2022 Patient encounter procedure Marvin KWON [facility] [place] Start: 05-27-2022 End: 05-28-2022 ambulatory MALATHI VIEIRA Facility:[facility] Start: 05-19-2022 End: 05-19-2022 Patient encounter procedure MALATHI VIEIRA [facility] Start: 05-14-2022 End: 05-14-2022 ambulatory Gypsy Mcmahon Other [facility] Other Start: 05-14-2022 Telephone encounter Gypsy Mcmahon [facility] Start: 05-11-2022 End: 05-12-[address] GYPSY MCMAHON Facility:[facility] Start: 05-01-2022 (Televisit) Televisit [facility] Start: 05-01-2022 End: 05-01-2022 ambulatory Gypsy Mcmahon Other [facility] Other Start: 05-01-2022 Telephone encounter Gypsy Mcmahon [facility] Start: 04-28-2022 End: 04-29-[address] GYPSY MCMAHON Facility:[facility] Start: 04-24-2022 End: 04-24-2022 ambulatory Hunter Brown Other [facility] Other Start: 04-24-2022 Office outpatient visit 15 minutes Hunter Brown [facility] Gastroenter[facility] Start: 04-16-2022 End: 04-16-2022 ambulatory Gypsy Mcmahon Other [facility] Other Start: 04-16-2022 Telephone encounter Gypsy Mcmahon [facility] Start: 04-14-2022 End: 04-14-[address] GYPSY MCMAHON Facility:[facility] Start: 04-07-2022 End: 04-07-2022 ambulatory Gypsy Mcmahon Other [facility] Other Start: 04-07-2022 Office outpatient visit 15 minutes Gypsy Mcmahon [facility] Start: 04-03-2022 End: 04-03-2022 ambulatory Gypsy Mcmahon Other [facility] Other Start: 04-03-2022 Telephone encounter Gypsy Mcmahon [facility] Start: 03-30-2022 End: 03-30-2022 Departed Referred MD Gypsy Mcmahon Work Phone: [facility] [place] Work Phone: Start: 03-30-2022 End: 03-30-2022 ambulatory MD Gypsy Mcmahon Work Phone: [facility] Work Phone: Start: 03-30-2022 Nursing evaluation o f patient and report Gypsy Mcmahon [facility] Start: 03-20-2022 End: 03-21-[address] GYPSY MCMAHON Facility:[facility] Start: 03-19-2022 End: 03-19-2022 ambulatory Hunter Brown Other [facility] Other Start: 03-19-2022 Telephone encounter Hunter brady [facility] Start: 03-11-2022 Registered Recurring MD Gypsy Mcmahon Work Phone: [facility] Work Phone: Start: 02-23-2022 End: 02-24-[address] GYPSY MCMAHON Facility:[facility] Start: 02-19-2022 End: 02-19-2022 ambulatory Gypsy Mcmahon Other [facility] Other Start: 02-19-2022 Telephone encounter Gypsy Mcmahon [facility] Start: 02-17-2022 End: 02-18-[address] GYPSY MCMAHON Facility:[facility] Start: 02-16-2022 End: 02-16-2022 ambulatory Gypsy Mcmahon Other [facility] Other Start: 02-16-2022 Office outpatient visit 15 minutes Gypsy Mcmahon [facility] Start: 02-16-2022 End: 02-16-2022 Departed Referred MD Gypsy Mcmahon Work Phone: [facility] [place] Work Phone: Start: 02-11-2022 End: 02-11-2022 ambulatory Hunter Brown Other [facility] Other Start: 02-11-2022 Office outpatient visit 15 minutes Hunter Brown [facility] Start: 02-11-2022 Telephone encounter Hunter brady [facility] Start: 01-26-2022 End: 01-27-[address] GYPSY MCMAHON Facility:[facility] Start: 01-15-2022 End: 01-16-[address] GYPSY MCMAHON Facility:[facility] Start: 01-06-2022 End: 01-06-2022 ambulatory Hunter Brown Other [facility] Other Start: 01-06-2022 Telephone encounter Hunter brady [facility] Start: 01-05-2022 End: 01-06-2022 ambulatory CLAU Shrestha [facility] Other Start: 01-05-2022 Office outpatient visit 25 minutes Hunter Brown [facility] Start: 12-27-2021 End: 12-27-[address] REY MONTGOMERY Facility:[facility] Start: 12-18-2021 End: 12-19-2021 ambulatory CLAU NASCIMENTO Facility:[facility] Start: 12-08-2021 End: 12-09-[address] GYPSY MCMAHON Facility:[facility] Start: 11-18-2021 End: 11-18-2021 ambulatory Hunter Brown Other [facility] Other Start: 11-18-2021 Telephone encounter Hunter brady [...] 08-18-2021 End: 08-18-2021 ambulatory Giana Griffiths Other [facility] Other Start: 08-18-2021 Telephone encounter Giana Griffiths [facility] Gastroenter[facility] Start: 08-12-2021 End: 08-12-[address] GYPSY MCMAHON Facility: Start: 04-22-2021 End: 04-22-2021 ambulatory Giana Griffiths Other [facility] Other Start: 04-22-2021 Telephone encounter Giana Griffiths [facility] G[facility] Start: 03-27-2021 End: 03-27-2021 ambulatory Giana Griffiths Other [facility] Other Start: 03-27-2021 Office outpatient visit 25 minutes Giana Griffiths [facility] Gastroenter[facility] Start: 01-27-2021 End: 01-27-2021 ambulatory Giana Griffiths Other [facility] Other Start: 01-27-2021 Office outpatient visit 25 minutes Giana Griffiths [facility] Gastroenter[facility] Start: 01-27-2021 Telephone encounter Giana Griffiths [facility] Gastroenter[facility] Procedures Date Procedure Procedure [...] MALATHI VIEIRA Start: 07-25-2009 Urodynamic studies CAMMY RAYRAY VIEIRA Bilateral cataracts (disorder) MALATHI VIEIRA Coronary artery bypa ss grafts x 4 MALATHI VIEIRA Excision of sphincte r of anus MALATHI VIEIRA Gallbladder structur e (body structure) MALATHI VIEIRA History of total hysterectomy MALATHI VIEIRA Knee region structur e (body structure) MALATHI VIEIRA Plan of Treatment Date Care Activity Detail Author Start: 03-30-2022 Bacteria identified in Urine by Culture [facility] Bacteria identified in Stool by Culture [facility] Bacteria identified in Urine by Culture [facility] Elastase.pancreatic [Mass/mass] in Stool [facility] Patient referral [facility] Work Phone: [facility] Immunizations Immunization Date Immunization Notes Care Provider Bob henry 02-16-2022 Shingrix 50 MCG/0.5M L; 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: [Shingrix 50 MCG/0.5ML] Hunter Brown Other [facility] Other 01-15-2022 influenza virus vaccine, unspecified formulation MALATHI VIEIRA [facility] 01-15-2022 SARS-CoV-2 (COVID-19 ) [id number] MALATHI VIEIRA [facility] 01-23-2021 SARS-CoV-2 (COVID-19 ) mRNA BNT-162b2 vax MALATHI VIEIRA [facility] 01-06-2021 influenza virus vaccine, unspecified formulation MALATHI DEB [facility] 03-27-2020 SARS-CoV-2 (COVID-19 ) mRNA BNT-162b2 vax MALATHI DEB [facility] 03-04-2020 SARS-CoV-2 (COVID-19 ) mRNA BNT-162b2 vax MALATHI DEB [facility] 12-06-2019 influenza virus vaccine, unspecified formulation MALATHI DEB [facility] 12-14-2018 influenza virus vaccine, unspecified formulation MALATHI DEB [facility] 02-02-2018 influenza virus vaccine, unspecified formulation MALATHI DEB [facility] 11-08-2017 pneumococcal polysaccharide vaccine, 23 valent MALATHI DEB [facility] 11-02-2017 influenza virus vaccine, unspecified formulation MALATHI DEB [facility] 12-09-2016 influenza virus vaccine, unspecified formulation MALATHI DEB [facility] 12-02-2016 influenza virus vaccine, unspecified formulation MALATHI DEB [facility] 12-17-2015 influenza virus vaccine, unspecified formulation MALATHI DEB [facility] 10-10-2015 influenza virus vaccine, unspecified formulation MALATHI DEB [facility] 11-19-2014 influenza virus vaccine, unspecified formulation MALATHI VIEIRA [facility] 11-09-2014 pneumococcal polysaccharide vaccine, 23 valent MALATHI VIEIRA [facility] NEGATED: Highlighted row has not occurred!01-26-2023 influenza virus vaccine, unspecified formulation MALATHI VIEIRA [facility] Payers Date Payer Category Payer Self-pay [id number] 1958 [facility] [id number] 1958 Medicare [id number] 2.1 [id number] 1936 Unknown [id number] 2.16.84 0.1.971993.3.579.2.593 1936 Unknown [id number] 2.16.84 0.1.414730.3.579.2.593 1936 Unknown [id number] 2.16.84 0.1.926880.3.579.2.593 1936 Unknown [id number] 2.16.84 0.1.663155.3.579.2.593 1936 Unknown [id number] 2.16.84 0.1.372409.3.579.2.593 1936 Unknown [id number] 2.16.84 0.1.564674.3.579.2.593 1936 Unknown [id number] 2.16.84 0.1.621663.3.579.2.593 1936 Unknown [id number] 2.16.84 0.1.869178.3.579.2.593 1936 Unknown [id number] 2.16.84 0.1.359991.3.579.2.593 1936 Unknown [id number] 2.16.84 0.1.132232.3.579.2.593 1936 Unknown [id number] 2.16.84 0.1.142568.3.579.2.593 1936 Unknown [id number] 2.16.84 0.1.450118.3.579.2.593 1936 Unknown [id number] 2.16.84 0.1.213463.3.579.2.593 1936 Unknown [id number] 2.16.84 0.1.477202.3.579.2.593 1936 Unknown [id number] 2.16.84 0.1.796950.3.579.2.593 1936 Unknown [id number] 2.16.84 0.1.952515.3.579.2.593 1936 Unknown [id number] 2.16.84 0.1.761749.3.579.2.593 1936 Unknown [id number] 2.16.84 0.1.224774.3.579.2.593 1936 Unknown [id number] 2.16.84 0.1.062077.3.579.2.593 1936 Unknown [id number] 2.16.84 0.1.201853.3.579.2.593 1936 Unknown [id number] 2.16.84 0.1.142661.3.579.2.593 1936 Unknown [id number] 2.16.8 40.1.564164.3.579.2.727 1936 Unknown [id number] 2.16.8 40.1.216045.3.579.2.727 1936 Unknown [id number] 2.16.8 40.1.995692.3.579.2.727 1936 Unknown [id number] 2.16.8 40.1.732572.3.579.2.727 1936 Unknown [id number] 2.16.8 40.1.357052.3.579.2.1286 1936 Unknown [id number] 2.16.8 40.1.509882.3.579.2.1286 Unknown [id number] 2.16.8 40.1.415751.3.579.2.531 Unknown [id number] 2.16.8 40.1.815437.3.579.2.531 Social History Date Type Detail Facility Unknown if ever smoked [facility] Other Sex Assigned At [facility] Start: 1935 Sex Assigned At Female F [facility] Start: 05-19-2022 End: 06-09-2022 Tobacco smoking status Ex-smoker (finding) [facility] Start: 09-22-2022 Tobacco smoking status Never [facility] Start: 05-05-2023 Tobacco smoking stat [facility] Never smoked tobacco (finding) [facility] Functional Status Date Assessment Result Facility 01-26-2023 Functional Status N/A [facility] 09-22-2022 Functional Status N/A [facility] 06-09-2022 Functional Status N/A [facility] 05-19-2022 Functional Status N/A [facility] Clinical Notes 01-27-2021 to 03-12-2023 Note Date & Type Note Facility 03-12-2023 Evaluation note Encounter Date Diagnosis Assessment Notes Mar, 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 Preventative measures were discussed. Vitamin C zvux-wqh-brdodsj recommended as well as topical Thera workx [...] n due to immunosuppression (ICD-10 - Z91.89) [facility] Other 01-09-2024 Evaluation note* Encounter Date Diagnosis [...] pain. Feb, Pain, unspecified (ICD-10 - R52) [facility] Other 12-19-2023 Hospital Discharge instructions Patient Education 01/26/2023 16:05:17 Urinary Tract Infection, Adult, Vqyc-ob-Yzcn Urinary Tract Infection, Adult A urinary tract [...] Follow these instructions at home: Medicines Take bkie-hwl-emskggk and prescription medicines only as told by [...] provider. Document Revised: 09/06/2020 Document Reviewed: 09/06/2020 [employer] Patient Education 2022 [employer] Follow Up Care 06/09/2022 14:50:19 With:MALATHI VIEIRA PA-C, URL Address: [address] [place] [address] [phone] When: Unknown Comments:f/u in [place] [facility] 12-13-2023 Evaluation note* Encounter Date Diagnosis Assessment Notes Treatment Notes Treatment Clinical Notes Jan, Diarrhea (ICD-10 - R19.7) [facility] Other 12-05-2023 Evaluation note* Encounter Date Diagnosis [...] a day, we will re-test for C-diff [facility] Other 11-28-2023 Evaluation note* Encounter Date Diagnosis Assessment Notes Treatment Notes Treatment Clinical Notes Dec, Clostridium difficile colitis (ICD-10 - A04.72) Finish meds as prescribed. (cipro, Flagyl) Followup w Dr. Brown as scheduled. Understands the c diff could recur. Followup as needed Discussed good nutrition and healthy diet. [facility] Other 11-20-2023 Evaluation note* Encounter Date Diagnosis Assessment Notes Treatment Notes Treatment Clinical Notes Dec, Diarrhea, unspecified type (ICD-10 - R19.7) Pt appears to be having secondary from viral infection. There is no abdominal pain on exam and pt is afebrile which is reassuring. C. diff infection is a possibility as she was recently treated [facility]ics for a UTI, will check [...] Pt understands and agrees with the plan. [facility] Other 11-07-2023 Evaluation note* Encounter Date Diagnosis Assessment Notes Treatment Notes Treatment Clinical Notes Dec, Frequent UTI (ICD-10 - N39.0) [facility] Other 11-07-2023 Evaluation note* Encounter Date Diagnosis [...] w Dr. Licea today. Consider PT at [facility] [...] veins Hypertension - Uncon (more content not included)...[facility]08-15-2023 Hospital Discharge instructions Patient Education 09/22/2022 15:32:53 Urinary Tract Infection, Adult, Cfsd-rs-Nmlh Urinary Tract Infection, Adult A urinary tract [...] Follow these instructions at home: Medicines Take nxqc-tkw-vjqfwbo and prescription medicines only as told by [...] provider. Document Revised: 09/06/2020 Document Reviewed: 09/06/2020 [employer] Patient Education 2022 [employer] Follow Up Care 09/22/2022 10:38:22 With:MALATHI VIEIRA PA-C, URL Address: [address] [facility] [place] [address] When: Unknown [facility] 08-03-2023 Evaluation note* Encounter Date Diagnosis Assessment Notes Treatment Notes Treatment Clinical Notes Sep, Dysuria (ICD-10 - R30.0) [facility] Other 08-01-2023 Evaluation note* Encounter Date Diagnosis Assessment Notes Treatment Notes Treatment Clinical Notes Sep, Microscopic colitis, unspecified microscopic colitis type (ICD-10 - K52.839) [facility] Other 07-25-2023 Evaluation note* Encounter Date Diagnosis Assessment Notes Treatment Notes Treatment Clinical Notes Aug, Frequent UTI (ICD-10 - N39.0) Continue estrogen cream. Review with Urology on her followup appt. Discussed causes of UTIs Aug, Lymphocytic colitis (ICD-10 - K52.832) Improved with GI at [facility]. 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 Barry. Reviewed medications and explained their purpose. 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 Depending on the risk-benefit ratio will consider starting 1 or the other. She is on Zocor which is not ideal. If her cholesterol is not controlled, would suggest switching her to 40 mg of Lipitor or 20 mg of Crestor. Follow-up in 6 months or sooner should problems arise or her stress test revealed ischemia Jake Barry MD, MPH, FACC, [facility], [facility] Interventional Cardiology Pager Email: [email or web address] Hospital Discharge instructions Patient Education 06/09/2022 14:15:56 Urinary Tract Infection, Adult, Tkxc-fi-Nvox Urinary Tract Infection, Adult A urinary tract [...] Follow these instructions at home: Medicines Take jsdw-yjo-zjrbjek and prescription medicines only as told by [...] provider. Document Revised: 09/06/2020 Document Reviewed: 09/06/2020 [employer] Patient Education 2022 [employer] Follow Up Care 06/01/2022 10:03:13 With:CHER KRISHNAN, Marvin Camacho, URL Address: [facility] [address] [place] [address]- [phone] When:10/10/2022 [facility] 04-11-2023 Hospital Discharge instructions Patient Education [...] Treatment for this condition includes: Antibiotic medicine. Fgmx-brm-aycdpgo medicines to treat discomfort. Drinking enough water [...] Follow these instructions at home: Medicines Take wpsf-clf-kvkkrne and prescription medicines only as told by [...] 11/04/2005 Document Revised: 01/12/2019 Document Reviewed: 08/04/2018 [employer] Patient Education 2020 [employer] Follow Up Care 04/20/2022 10:50:51 With:MALATHI VIEIRA PA-C, URL Address: [address] [place], [place] [address] [place] [address] When: Unknown [facility] 04-06-2023 Evaluation note* Encounter Date Diagnosis Assessment Notes Treatment Notes Treatment Clinical Notes May, Frequent UTI (ICD-10 - N39.0) [facility] Other 03-24-2023 Evaluation note* Encounter Date Diagnosis [...] back this morning. antibiotic at her pharmacy. [facility] Other 03-17-2023 Evaluation note* Encounter Date Diagnosis Assessment Notes Treatment Notes Treatment Clinical Notes Apr, Lymphocytic colitis (ICD-10 - K52.832) Continue Entyvio as directed Continue Lotronex 0.5 mg 1/2 tablet daily Rto 4 months [facility] Other 03-09-2023 Evaluation note* Encounter Date Diagnosis Assessment Notes Treatment Notes Treatment Clinical Notes Apr, Acute cystitis without hematuria (ICD-10 - N30.00) [facility] Other 02-28-2023 Evaluation note* Encounter Date Diagnosis Assessment Notes Treatment Notes Treatment Clinical Notes Mar, Recurrent UTI (ICD-10 - N39.0) Discussed options. Will try estrogen cream for vaginal health. Denies personal history of female cancers. Will also set up w Urology Mar, Colitis (ICD-10 - K52.9) Further treatment with Dr. Manny freed appt on 04/24 [facility] Other 02-20-2023 Evaluation note* Encounter Date Diagnosis Assessment Notes Treatment Notes Treatment Clinical Notes Mar, Dysuria (ICD-10 - R30.0) [facility] Other 01-09-2023 Evaluation note* Encounter Date Diagnosis Assessment Notes Treatment Notes Treatment Clinical Notes Feb, Acute cystitis without hematuria (ICD-10 - N30.00) Sent to [facility] for urine culture - will treat based on results. Feb, Encounter for immunization (ICD-10 - Z23) Feb, Microscopic colitis, unspecified microscopic colitis type (ICD-10 - K52.839) Keep appt w Dr. Brown. Discussed boost or other supplement to gain weight Feb, Gastric ulcer (ICD-10 - K25.9) Encouraged her to continue pantoprazole [facility] Other 01-04-2023 Evaluation note* Encounter Date Diagnosis Assessment Notes Treatment Notes Treatment Clinical Notes Feb, Lymphocytic colitis (ICD-10 - K52.832) Start Entyvio infusions every 8 weeks Continue Budesonide, Alosetron, Imodium, and Pepto for now until starting Entyvio. Pt to keep record of bowel movements - how many and consistency Follow up in 2 months Feb, Fecal incontinence (ICD-10 - R15.9) [facility] Other 11-28-2022 Evaluation note* Encounter Date Diagnosis [...] Pantoprazole as prescribed Okay to stop Sucralfate [facility] Other 09-25-2022 NoteOPERATIVE NOTE OPERATION DATE: 11/04/2021 [...] was taken to PACU in good condition.[facility] 03-27-2021 Evaluation note* Encounter Date Diagnosis Assessment Notes Treatment Notes Treatment Clinical Notes Mar, Microscopic colitis, unspecified microscopic colitis type (ICD-10 - K52.839) INCREASE COLESTIPOL TO 4 TABS AT LUNCHTIME DAILY IF NOT IMPROVED ON HIGHER DOSE PT TO CALL ON 03/31 FOR ALTERNATIVE PLAN Mar, Irritable bowel syndrome with diarrhea (ICD-10 - K58.0) [facility] Other 12-20-2021 Evaluation note* Encounter Date Diagnosis Assessment Notes Treatment Notes Treatment Clinical Notes Jan, Microscopic colitis, unspecified microscopic colitis type (ICD-10 - K52.839) START COLESIPOL 2 PO DAILY CONTINUE BUDESONIDE WITHOUT CHANGE 3 PO Q AM AND MAYBE CONSIDERING STOP THIS IF COLESTIPOL IS WORKING ENOUGH TO CONTROL HER SYMPTOMS [facility] Other 12-20-2021 Evaluation note* Encounter Date Diagnosis Assessment Notes Treatment Notes Treatment Clinical Notes Jan, Microscopic colitis, unspecified microscopic colitis type (ICD-10 - K52.839) [facility] Other Evaluation + Plan note No data available for this section [facility] evaluation + Plan note Future Appointments Appointment Date:10/27/2022 01:00:00 PM Scheduled Provider:MALATHI VIEIRA PA-C Location:[facility] Appointment Type:URO Office Visit [facility] Evaluation + Plan note Future Appointments Appointment Date:12/29/2022 01:00:00 PM Scheduled Provider:MALATHI VIEIRA PA-C Location:[facility] Appointment Type:URO Office Visit [facility] evaluation + Plan note Future Appointments Appointment Date:06/15/2023 02:00:00 PM Scheduled Provider:MALATHI VIEIRA PA-C Location:[facility] Appointment Type:URO Office Visit [facility] evaluation + Plan note Future Appointments Appointment Date:01/30/2023 10:30:00 AM Scheduled Provider: Location:[facility] Appointment Type:ASU IV Antibiotic (FT) Appointment Date:01/31/2023 10:30:00 AM Scheduled Provider: Location:[facility] Appointment Type:ASU IV Antibiotic (FT) Appointment Date:02/01/2023 10:30:00 AM Scheduled Provider: [facility] Appointment Type:ASU IV Antibiotic (FT) Appointment Date:02/02/2023 10:30:00 AM Scheduled Provider: Location:[facility] Appointment Type:ASU IV Antibiotic (FT) Appointment Date:02/03/2023 10:30:00 AM Scheduled Provider: Location:[facility] Appointment Type:ASU IV Antibiotic (FT) Appointment Date:02/04/2023 10:30:00 AM Scheduled Provider: Location:[facility] Appointment Type:ASU IV Antibiotic (FT) Appointment Date:06/15/2023 02:00:00 PM Scheduled Provider:MALATHI VIEIRA PA-C Location:[facility] Appointment Type:URO Office Visit [facility] noteNo [facility] [employer] Other Evaluation noteNo assessment information available [facility] Work Phone: Evaluation note* Diagnosis Onset Date Resolution Status Recurrent Clostridioides difficile diarrhea acute [facility] Work Phone: Evaluation note* Diagnosis Onset Date Resolution Status Recurrent Clostridioides difficile diarrhea acute Diarrhea acute Microscopic colitis acute Recurrent Clostridioides difficile diarrhea acute Recurrent UTI acute [facility] Work Phone: Hiszmjz general Narrative - Reported* Type Description Date Medical History HTN Medical History hyperlipidemia Medical History microscopic colitis Surgical History T&A Surgical History Quad by-pass Surgical History total hysterectomy Surgical History gall bladder Surgical History Cataracts Surgical History Right Knee Scope Surgical History Sphincterectomy Surgical History Left Rotator Scope Surgical History Hernia Repair 03/24/2012 Hospitalization History See Surgical Hx [employer] Other Hisiyhj general Narrative - Reported* Type Description Date [...] See Surgical Hx Hospitalization History TB 12/2022 [facility] Other [employer] general Narrative - Reported* Type Description Date [...] See Surgical Hx Hospitalization History TB 12/2022 [facility] Other [employer] general Narrative - Reported* Type Description Date [...] Hospitalization History See Surgical Hx Hospitalization History [facility] 12/2022 [employer] Other History general Narrative - Reported* Type [...] Hospitalization History See Surgical Hx Hospitalization History [facility] 12/2022 [facility] Other Hospital Discharge instructions No data available for this section [facility] No data available for this section [facility] [employer] Summary Purpose Family History No Family History [...] 2017 10:57am Hospital Course Note [facility] Clinical Discharge Summary PERSON INFORMATION Name DELICIA HSU Age 83 Years 1935 Sex FEMALE Language Kazakh PCP Lisandro KRISHNAN, Gypsy Olvera Marital Status Med Service Med/Surg Acct# Arrival 09/25/2019 06:52:00 Visit Reason SURGERY - LEFT TOTAL HIP Acuity LOS Address: [address] [place] [address] Comment: PROVIDER INFORMATION VITALS INFORMATION Vital Sign [...] Recurrent UTI Reason for Referral Reason DUPLICATE [place] office - frequent UTIs. Diagnosis 1 Frequent UTI (N39.0) Referral Organization [facility] Referring Provider First Name Gypsy Referring Provider Last Name Lisandro Referring Provider [facility] [employer] [facility] Referred Provider Beau Hernandez Referred Address [address],[place],[address] Referred Provider Specialty Urology Referral Priority Routine General Notes Tatyana Bojorquez 01:56:52 PM >received today Tatyana Bojorquez 05/14/2022 02:02:41 PM >attachments made, notes locked, referral faxed Tatyana Bojorquez 05/14/2022 03:25:50 PM >DUPLICATE REFERRAL Reason *FU 04/28 [place] office - recurrent UTIs. Diagnosis 1 Recurrent UTI (N39.0 ) Referral Organization [facility] [employer] jah Referring Provider First Name Gypsy Referring Provider Last Name Lisandro Referring Provider [facility] Referred Provider Gerson Juárez Referred Address [address],[place],[address] Referred Provider Specialty Urology Referral Priority Routine General Notes Tatyana Bojorquez 03:40:45 PM >received today, attachments made, waiting for notes to be locked Tatyana Bojorquez 04/10/2022 08:38:22 AM >notes locked, referral faxed Tatyana Bojorquez 04/20/2022 07:51:15 AM >faxed first attempt letter [place] Tatyana 04/21/2022 07:46:20 AM >received fax that referral was never received. refaxed at this time. Additional Source Comments INFORMATION SOURCE (unrecogn ized section and content) DATE CREATED AUTHOR 09/17/2018 [facility] DATE CREATED AUTHOR AUTHOR'S ORGANIZ ATION 10/30/2019 [facility] DATE CREATED AUTHOR AUTHOR'S ORGANIZ ATION [facility]/31/2022 [facility] DATE CREATED AUTHOR AUTHOR'S ORGANIZ ATION 11/15/2022 [facility] DATE CREATED AUTHOR AUTHOR'S ORGANIZ ATION 05/30/2023 [facility] DATE CREATED AUTHOR AUTHOR'S ORGANIZ ATION 06/17/2023 [facility] DATE CREATED AUTHOR AUTHOR'S ORGANIZ ATION [facility]19/20[facility] DATE CREATED AUTHOR AUTHOR'S ORGANIZ ATION 06/26/2023 [facility] REASON FOR VISIT (unrecogniz ed [...] on alosetron, Patient was recently inpatient at [facility] and was diagnosed with gastric ulcerPRESCRIPTIONPATIENT [...] 2023 End: May 21, 2023 Monie Wallace DO Attending Provider Active St art: May 21, [...] Team Status: Inactive Member Role Status Valdemar Mcmaohn MD Primary Care Provider Active Start: May 28, 2023 End: May 28, 2023 Monie Wallace DO Attending Provider Active St art: May 28, 2023 End: May 28, 2023 Team Status: Inactive Member Role Status Valdemar Mcmahon MD Attending Provider Active Team Status: Inactive Member Role Status Valdemar Mcmahon MD Primary Care Provider, Attending Leonarda griffiths Active Team Status: Active Member Role Status Valdemar Mcmahon , MD Primary Care Provider Active Hunter Brown MD Attending Provider Active Team Status: Inactive Member Role Status Dates Gypsy Mcmahon MD Attending Provider Active St art: December 15, 2022 End: December 15, 2022 Team Status: Inactive Member Role Status Dates Malathi Velázquez APRN [employer] Attending Provider Act jamar Start: December 28, [...] BE BASED ON THE PRIMARY CLINICAL RECORDS. [employer] [facility]. provides no warranty or guarantee of the accuracy or completeness of information in this document.
--- NOTE | 2023-07-25 19:14 | ED_ITS ---
HPI HPI - General Adult General Chief complaint: Urogenital-Female Stated complaint: UTI SYMPTOMS Time Seen by Provider: 07/25/23 19:03 Source: patient Mode of arrival: Wheelchair Limitations: altered mental status History of Present Illness HPI narrative: 87-year-old female presents to the ER with her daughter for evaluation of possible UTI and increased confusion. No reported fever. Patient has a history of microscopic colitis And has recently been under the care of a chief sales officer in [place] for treatment of chronic diarrhea. Patient recently has been taking Pepto-Bismol multiple times a day prescribed for her symptoms, she recently ran out and had return of diarrhea, daughter expressed concerns of possible UTI and she did give a sample on Wednesday, they have not yet heard of results. It appears the JODY is still pending with Klebsiella 80,000 as predominantly infectious cause. The patient denies any chest pain or shortness of breath, she denies any abdominal pain. They have been weaning her off of budesonide slowly for her abdominal symptoms. Patient appears in no distress.She is alert and oriented to person place and daughter at bedside. She does not know the date or the month. Does live at home with her son. Onset (ago): day(s) Radiation: Reports non-radiation Related Data Home Medications ?Medication ?Instructions ?Recorded ?Confirmed clopidogrel 75 mg tablet (Plavix) 75 mg PO DAILY 09/27/22 07/25/23 metoprolol succinate 50 mg 50 mg PO DAILY 09/27/22 07/25/23 tablet,extended release 24 hr simvastatin 40 mg tablet 40 mg PO DAILY 09/27/22 07/25/23 spironolactone 25 mg tablet 25 mg PO DAILY 09/27/22 07/25/23 acetaminophen 500 mg tablet 1,000 mg PO Q6H PRN pain 12/29/22 07/25/23 alosetron 0.5 mg tablet 0.5 mg PO DAILY PRN diarrhea 12/29/22 07/25/23 budesonide 3 mg 3 mg PO BID 12/29/22 07/25/23 capsule,delayed,extended release cholecalciferol (vitamin D3) 50 50 mcg PO DAILY 12/29/22 07/25/23 mcg (2,000 unit) tablet (D3 DOTS) estradiol 0.01% (0.1 mg/gram) 1 g vaginal .TWICE A WEEK 12/29/22 07/25/23 vaginal cream (Estrace) loperamide 2 mg capsule (Imodium 2 mg PO Q4H 12/29/22 07/25/23 A-D) melatonin 5 mg tablet 5 mg PO DAILY 12/29/22 12/29/22 zinc gluconate 50 mg tablet 50 mg PO DAILY 12/29/22 07/25/23 dehlja-[id number]-usrrcgo 2 cap PO QID 07/25/23 07/25/23 36,000-114,000-180,000 unit capsule,delay rel (Creon) pantoprazole 20 mg tablet,delayed 20 mg PO DAILY 07/25/23 07/25/23 release Previous Rx's ?Medication ?Instructions ?Recorded Lactobacillus acidophilus, 1 packet PO BID 30 days #60 ea 01/01/23 bulgar[place] 100 million cell granules packet (Floranex) ciprofloxacin HCl 250 mg tablet 250 mg PO BID 3 days #6 tabs 07/25/23 (Cipro) Allergies Allergy/AdvReac Type Severity Reaction Status Date / Time levofloxacin AdvReac Severe Drowsy Verified 07/25/23 19:05 Penicillins AdvReac Severe Verified 07/25/23 19:05 Antihistamines - Alkylamine AdvReac Intermediate Verified 07/25/23 19:05 phenergen Allergy Severe Agitated Uncoded 07/25/23 19:05 Opioid HPI Opioid Management Most Recent Opioid Data: Last Pain Scale 0 12/31/22 01:53 Review of Systems ROS Status of ROS unobtainable due to mental status Constitutional Denies: fever or chills Cardiovascular Denies: chest pain or palpitations Respiratory Denies: shortness of breath or cough Gastrointestinal Reports: diarrhea; Denies: abdominal pain, nausea or vomiting [facility] Medical History (Updated 07/25/23 @ 20:56 by TIFFANIE Rodriguez) Cataracts, bilateral ?H26.9 - Unspecified cataract (ICD-10) HTN (hypertension) ?I10 - Essential (primary) hypertension (ICD-10) Hypomagnesemia ?E83.42 - Hypomagnesemia (ICD-10) Peripheral edema ?R60.0 - Localized edema (ICD-10) GERD (gastroesophageal reflux disease) ?K21.9 - Gastro-esophageal reflux disease without esophagitis (ICD-10) IBD (inflammatory bowel disease) ?K52.9 - Noninfective gastroenteritis and colitis, unspecified (ICD-10) CAD (coronary artery disease) ?I25.10 - Atherosclerotic heart disease of [place] coronary artery without angina pectoris (ICD-10) 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 (ICD-10) Cholecystectomy planned Cataract ?H26.9 - Unspecified cataract (ICD-10) Acute hypokalemia ?E87.6 - Hypokalemia (ICD-10) Clostridium difficile colitis ?A04.72 - Enterocolitis due to Clostridium difficile, not specified as recurrent (ICD-10) Acute dehydration ?E86.0 - Dehydration (ICD-10) Acute pain of right shoulder ?M25.511 - Pain in right shoulder (ICD-10) Acute hyponatremia ?E87.1 - Hypo-osmolality and hyponatremia (ICD-10) Urinary tract infection ?N39.0 - Urinary tract infection, site not specified (ICD-10) Altered mental status ?R41.82 - Altered mental status, unspecified (ICD-10) Surgical History (Updated 07/25/23 @ 19:48 by Arcadio Rowland) History of hysterectomy ?Z90.710 - Acquired absence of both cervix and uterus (ICD-10) 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 - Presence of aortocoronary bypass graft (ICD-10) History of left hip replacement ?Z96.642 - Presence of left artificial hip joint (ICD-10) S/P CABG x 5 ?Z95.1 - Presence of aortocoronary bypass graft (ICD-10) Family History (Updated 12/29/22 @ 14:40 by Melissa Britt) Father Family history of CHF (congestive heart failure) Family history of hypertension Brother Family history of cancer Sister Family history of cancer Family history of myocardial infarction Mother Family history of hypertension Family history of stroke Social History (Updated 12/29/22 @ 14:41 by Melissa Britt) Within the past year, how often did you have a drink containing alcohol: monthly or less Within the past year, how many standard drinks containing alcohol did you have on a typical day: 1 or 2 Within the past year, how often did you have six or more drinks on one occasion: never Total score: 0 Score interpretation: A score less than 3 is consistent with normal alcohol consumption. Smoking status: Never smoker Non-prescribed substance use: denies use Highest level of school completed/degree received: 9th grade Are you now , , , , never or living with a partner: In a typical week, how many times do you talk on the telephone with family, friends, or neighbors: twice per week How often do you get together with friends or relatives: twice per week How often do you attend oriental orthodox or temple services: never Do you belong to any clubs or organizations such as oriental orthodox groups unions, fraternal or athletic groups, or school groups: no Total score: 1 Score interpretation: A score of less than or equal to 1 indicates the most socially isolated. Exam Narrative Exam Narrative: Nurses notes and vital signs reviewed and patient is not hypoxic. General: The patient appears well and in no apparent distress. Patient is resting comfortably on cart. Skin: Warm, dry, no pallor noted. Head: Normocephalic, atraumatic Neck: Supple, trachea mid-line, no tenderness, no lymphadenopathy Eye: Pupils are equal, round and reactive to light, EOMI Ears, Nose, Mouth, and Throat: TM are clear, normal light reflex, oral mucosa is moist, no posterior oropharynx erythema or hypertrophy, uvula is mid-line Cardiovascular: Regular Rate and Rhythm Respiratory: Patient is in no distress, no accessory muscle use, lungs are clear to auscultation, no wheezing, rales or rhonchi. Chest Wall: no tenderness Back: non-tender, no CVA tenderness Musculoskeletal: normal ROM, no tenderness, 1 +dependent edema bilateral legs GI: Normal bowel sounds, no tenderness to palpation, no masses appreciated. No rebound, guarding, or rigidity noted. Neurological: A&O person, place and family at bedside Psychiatric: Cooperative Constitutional Vital Signs, click to edit/add: Last Vital Signs Temp 98.0 F 07/25/23 18:58 Pulse 71 07/25/23 18:58 Resp 18 07/25/23 18:58 BP 191/77 H 07/25/23 20:31 Pulse Ox 99 07/25/23 20:31 O2 Del Method Room Air 07/25/23 18:58 Course Vital Signs Vital signs: Vital Signs Temperature 98.0 F 07/25/23 18:58 Pulse Rate 71 07/25/23 18:58 Respiratory Rate 18 07/25/23 18:58 Blood Pressure 169/75 H 07/25/23 18:58 Pulse Oximetry 95 07/25/23 18:58 Oxygen Delivery Method Room Air 07/25/23 18:58 Temperature 98.0 F 07/25/23 18:58 Pulse Rate 71 07/25/23 18:58 Respiratory Rate 18 07/25/23 18:58 Blood Pressure 191/77 H 07/25/23 20:31 Pulse Oximetry 99 07/25/23 20:31 Oxygen Delivery Method Room Air 07/25/23 18:58 Medical Decision Making MDM Narrative Medical decision making narrative: Patient hydrated 1 L IV fluids, she is able to tolerate p.o. fluids. We discussed her mentation. Electrolytes within normal limits calcium minimally elevated but should improve with hydration. Patient's daughter Chiefly concerned about UTI and that she has not yet received a phone call. Her straight cath urine today does show evidence of infection and we will start with ciprofloxacin 250 mg given her renal function for a 3-day prescription pending the JODY from her prior urine sample and from today's. Daughter agreeable to treatment plan. The patient is to followup with primary care physician in next 2-3 days or to return to the emergency department should any of the signs or symptoms worsen or new symptoms develop. Patient had questions answered. The patient agrees with the following Diagnosis and Treatment plan and the patient will be discharged home. SHARED APC VISIT, PHYSICIAN ATTESTATION: [id number] I performed a substantive part of the MDM during the patient?s E/M visit. I personally evaluated and examined the patient. I personally made or approved the documented management plan and acknowledge its risk of complications. My (EKG/X-Ray/US/CT) interpretation . Management/test interpretation discussed with . Medical Records Medical records reviewed: Yes I reviewed the patient's medical records Medical records narrative: Contacted the lab, noted patient's JODY cannot yet back showing Klebsiella oxytocin at 80,000. Lab Data Lab results reviewed: Yes I reviewed the patient's lab results Labs: Lab Results 07/25/23 07/25/23 Range/Units 19:26 20:30 WBC 9.5 (4.0-11.0) 10^3/uL RBC 3.84 L (4.20-5.40) 10^6/uL Hgb 12.5 (12.0-16.0) g/dL Hct 38.1 (36.0-48.0) % MCV 99.2 H (81.0-99.0) fL MCH 32.6 (26.7-34.0) pg MCHC 32.8 (29.9-35.2) g/dL RDW 14.1 (11.0-15.0) % Plt Count 288 (150-450) 10^3/uL MPV 9.4 L (9.5-13.5) fL Neut % (Auto) 74.0 (43.0-75.0) % Lymph % (Auto) 12.4 L (20.5-60.0) % [place] % (Auto) 12.3 H (1.7-12.0) % Eos % (Auto) 0.6 L (0.9-7.0) % Baso % (Auto) 0.5 (0.2-2.0) % Neut # (Auto) 7.0 H (1.4-6.5) 10^3/uL Lymph # (Auto) 1.2 (1.2-3.8) 10^3/uL [place] # (Auto) 1.2 H (0.3-0.8) 10^3/uL Eos # (Auto) 0.1 (0.0-0.7) 10^3/uL Baso # (Auto) 0.1 (0.0-0.1) 10^3/uL Abs Immat Gran (auto) 0.02 (0.00-0.03) 10^3/uL Imm/Tot Granulo (auto) 0.2 (0.0-0.5) % Sodium 140 (136-145) mmol/L Potassium 4.0 (3.5-5.1) mmol/L Chloride 106 (98-107) mmol/L Carbon Dioxide 27.8 (21.0-32.0) mmol/L Anion Gap 10.2 BUN 26.0 H (7.0-18.0) mg/dL Creatinine 1.40 H (0.55-1.02) mg/dL Est GFR ( Amer) 43 L (>=60) Est GFR (Non-Af Amer) 36 L (>=60) BUN/Creatinine Ratio 18.6 Glucose 101 (74-106) mg/dL Calcium 10.5 H (8.5-10.1) mg/dL Total Bilirubin 0.7 (0.2-1.0) mg/dL AST 23 (15-37) U/L ALT 29 (14-59) U/L Alkaline Phosphatase 33 L (46-116) U/L Total Protein 7.2 (6.4-8.2) g/dL Albumin 3.5 (3.4-5.0) g/dL Globulin 3.7 g/dL Albumin/Globulin Ratio 0.9 Urine Color Yellow (YELLOW) Urine Clarity Clear (CLEAR) Urine pH 5.5 (5.0-9.0) Ur Specific [place] >=1.030 A (1.005-1.025) Urine Protein Negative (NEG/TRACE) mg/dL Urine Glucose (UA) Negative (NEGATIVE) mg/dL Urine Ketones Negative (NEGATIVE) mg/dL Urine Occult Blood Trace-i (NEGATIVE) Urine Nitrite Positive A (NEGATIVE) Urine Bilirubin Negative (NEGATIVE) Urine Urobilinogen 0.2 (0.2-1.0) EU/dL Ur Leukocyte Esterase Small A (NEGATIVE) Urine RBC 0-2 (0-2) #/HPF Urine WBC 5-10 A (NONE SEEN) #/HPF Ur Squamous Epith Cells Few A (NONE/RARE) #/LPF Urine Crystals Seen A (None Seen) #/HPF Amorphous Sediment Many Urine Bacteria Moderate A (NONE SEEN) #/HPF Urine Casts None seen (NONE SEEN) #/LPF Urine Mucus Small A (NONE SEEN) Ur Culture Indicated? Yes Salicylates <2.8 (<=19.9) mg/dL Discharge Plan Discharge Stand Alone Forms: Portal Instructions Chief Complaint: Urogenital-Female Clinical Impression: Urinary tract infection Patient Disposition: Home, Self-Care Time of Disposition Decision: 20:55 Condition: Good Prescriptions / Home Meds: New ciprofloxacin HCl [Cipro] 250 mg tablet 250 mg PO BID 3 Days Qty: 6 0RF No Action metoprolol succinate 50 mg tablet extended release 24 hr 50 mg PO DAILY simvastatin 40 mg tablet 40 mg PO DAILY spironolactone 25 mg tablet 25 mg PO DAILY clopidogrel [Plavix] 75 mg tablet 75 mg PO DAILY alosetron 0.5 mg tablet 0.5 mg PO DAILY PRN (Reason: diarrhea) acetaminophen 500 mg tablet 1,000 mg PO Q6H PRN (Reason: pain) budesonide 3 mg capsule,delayed,extend.release 3 mg PO BID zinc gluconate 50 mg tablet 50 mg PO DAILY cholecalciferol (vitamin D3) [D3 DOTS] 50 mcg (2,000 unit) tablet 50 mcg PO DAILY melatonin 5 mg tablet 5 mg PO DAILY loperamide [Imodium A-D] 2 mg capsule 2 mg PO Q4H Hold Instructions: Resume on 01/05/23. Rx Instructions: administer after each loose stool until symptoms controlled; do not exceed 8 mg per 24 hrs estradiol [Estrace] 0.01 % (0.1 mg/gram) cream 1 g vaginal .TWICE A WEEK Lactobacillus acidoph-L.bulgar [Floranex] 100 million cell Granules In Packet 1 packet PO BID 30 Days Qty: 60 11RF Creon 36,000-114,000- 180,000 unit capsule,delayed release(DR/EC) 2 cap PO QID pantoprazole 20 mg tablet,delayed release (DR/EC) 20 mg PO DAILY Print Language: Armenian Instructions: Urinary Tract Infection in Women (ED) Additional Instructions: Urine culture from Wednesday should be resulted tomorrow per lab. Please be in contact with Dr. Vergara. Advised of today's visit, tx with cippro 250mg po twice a day for 3 days Referrals: Shirlene Vergara MD [Primary Care Provider] - 1 week
[2023-07-25] MEDS: 0.9 % SODIUM CHLORIDE 1,000 ML 999 ML IV (19:34)
[2023-07-25 19:37] LABS: Basophils Absolute Auto 0.1 10^3/uL (0.0-0.1); Basophils Percent Auto 0.5 % (0.2-2.0); Eosinophils Absolute Auto 0.1 10^3/uL (0.0-0.7); Eosinophils Percent Auto 0.6 % (0.9-7.0); Hematocrit 38.1 % (36.0-48.0); Hemoglobin 12.5 g/dL (12.0-16.0); Immature Granulocytes Abs Auto 0.02 10^3/uL (0.00-0.03); Immature Granulocytes Pct Auto 0.2 % (0.0-0.5); Lymphocytes Absolute Auto 1.2 10^3/uL (1.2-3.8); Lymphocytes Percent Auto 12.4 % (20.5-60.0); Mean Corpuscular HGB Conc 32.8 g/dL (29.9-35.2); Mean Corpuscular Hemoglobin 32.6 pg (26.7-34.0); Mean Corpuscular Volume 99.2 fL (81.0-99.0); Mean Platelet Volume 9.4 fL (9.5-13.5); Monocytes Absolute Auto 1.2 10^3/uL (0.3-0.8); Monocytes Percent Auto 12.3 % (1.7-12.0); Platelet Count 288 10^3/uL (150-450); Red Blood Count 3.84 10^6/uL (4.20-5.40); Red Cell Distribution Width 14.1 % (11.0-15.0); White Blood Count 9.5 10^3/uL (4.0-11.0)
[2023-07-25 19:55] LABS: Alanine Aminotransferase 29 U/L (14-59); Albumin Globulin Ratio 0.9; Albumin Level 3.5 g/dL (3.4-5.0); Alkaline Phosphatase 33 U/L (46-116); Anion Gap 10.2; Aspartate Amino Transferase 23 U/L (15-37); BUN Creatinine Ratio 18.6; Bilirubin Total 0.7 mg/dL (0.2-1.0); Calcium 10.5 mg/dL (8.5-10.1); Carbon Dioxide 27.8 mmol/L (21.0-32.0); Chloride 106 mmol/L (98-107); Estimated GFR (African America 43 (>=60); Estimated GFR (Non-African Ame 36 (>=60); Globulin 3.7 g/dL; Glucose 101 mg/dL (74-106); Salicylate <2.8 mg/dL (<=19.9); Sodium 140 mmol/L (136-145); Total Protein 7.2 g/dL (6.4-8.2)
[2023-07-25 20:35] LABS: Bilirubin Urine NEGATIVE (NEGATIVE); Blood Urine TRACE-I (NEGATIVE); Clarity Urine CLEAR (CLEAR); Color Urine YELLOW (YELLOW); Glucose Urine UA NEGATIVE (NEGATIVE); Ketones Urine NEGATIVE (NEGATIVE); Leukocyte Esterase Urine SMALL (NEGATIVE); Nitrite Urine POSITIVE (NEGATIVE); Protein Urine NEGATIVE (NEG/TRACE); Specific Gravity Urine >=1.030 (1.005-1.025); Urobilinogen Urine 0.2 EU/dL (0.2-1.0); pH Urine 5.5 (5.0-9.0)
[2023-07-25 20:41] LABS: Bacteria Urine MODERATE #/HPF (NONE SEEN); Crystals Seen? Seen #/HPF (None Seen); Mucus Urine SMALL (NONE SEEN); RBC Urine 0-2 #/HPF (0-2); Squamous Epithelial Cell Urine FEW #/LPF (NONE/RARE); Urine Microscopic Indicated YES
[2023-07-25 20:42] LABS: Amorphous Sediment Urine MANY; Cast Seen? NONE SEEN #/LPF (NONE SEEN); Urine Culture Indicated YES
[2023-07-25] MEDS: CIPROFLOXACIN HCL 500 MG TABLET 250 MG PO (21:11)
== END 2023-07-25 21:20 | disposition home or self-care (01) ==
PROVIDERS: Personal Emergency Response Attendant; Emergency Provider Emergency Medicine; PCP Family Medicine
DX: N39.0 Urinary tract infection, site not specified (principal)
CPT/HCPCS: 36415; 80053; 80179; 81001; 85025; 87086; 87150; 87186; 96360; 96361; 99284

== ENCOUNTER 2023-08-10 12:43 | Outpatient (OUT) | payer MEDICARE, BC, SELFPAY ==
--- OUTSIDE RECORDS SUMMARY | 2023-08-10 12:57 | XMS_ITS | CCD ---
Author Organization [facility] Care Team Providers Care Police [employer] Name Role Phone Giana Griffiths Unavailable Hunter Brown Unavailable MD Gypsy Mcmahon [...] e VALENTINA, DR REY Bustamante Consulting Unavailabl beba MONTGOMERY, DR REY Bustamante Admitting Unavailabl e MCMAHON, [...] Unavailable CLAU NASCIMENTO Attending Unavailable LISANDRO, DR GYPYS Olvera Primary Care Unavailable MANNY, DR Nirav [...] Care Unavailable VALENTINA, DR REY Bustamante Admitting Unavailjhonatan e REINECK, DR REY Bustamante Attending Unavailabl e REINECK, DR REY Bustamante Consulting Unavailabl e MCMAHON, DR GYPSY Olvera Primary Care Unavailable MCMAHON, DR GYPSY Olevra Primary Care Unavailable ANNALISA .EMILIE Consulting Unavailable [...] Primary Care Unavailable Jose G Ellington Unavailable [facility] Attending Unavailable [place], [facility] Attending Unavailable Malathi Velázquez Unavailable MD Jacinto Max Attending Provider MD Jacinto Max Referring Provider MD Gypsy Mcmahon Primary Care Provider Jacinto Max Unavailable MD Jacinto Max Attending Provider MD Jacinto Max Referring Provider MD Gypsy Mcmahon Primary Care Provider TuDO Marvin moreno Emergency Provider MD Gypsy Mcmahon Primary Care Provider Ly, DO Monie Gastelum Attending Provider Jacinto Max Admitting Unavailable Jacinto Max Attending Unavailable Jacinto Max Referring Unavailable Gypsy Mcmahon Primary Care Unavailable Ly, Monie Gastelum Attending Unavailable Ly, Monie Gastelum Admitting Unavailable Gypsy Mcmahon E Primary Care Unavailable Tupa, Marvin Yancey Admitting Unavailable TupaMarvin Attending Unavailable Gypsy Mcmahon E Primary Care Unavailable Hunter Brown Admitting UnavailHunter Grimes Attending Unavailabl e Mcmahon Gypsy E Primary Care Unavailable ROYAL, MOHAMED F Attending Unavailable MCMAHON, GYPSY E Referring Unavailable MCMAHON, GYPSY E Primary Care Unavailable ROYAL, MOHAMED F Attending Unavailable ROYAL, MOHAMED F Referring Unavailable MCMAHON, GYPSY E Primary Care Unavailable DEBMALATHI RUBIO E Attending Unavailable DEB, MALATHI E Attending Unavailable DEB, MALATHI E Referring Unavailable DEB, MALATHI E Admitting Unavailable DEB, MALATHI E Attending Unavailable DEB, MALATHI E Attending Unavailable Allergies Allergy Classification Reported Allergen(s) Allergy Type Date of Onset Reaction(s) Facility (20 sources) Promethazine; 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: [promethazine] Drug Allergy 02-04-20 13 anaphylaxis, Anaphylaxis (disorder) [facility] (20 sources) histamines Drug allergy Unknown Relive Other (9 sources) Histamine H2 Inhibitors; 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: [Histamine H2 Inhibitors] Allergy to substance 07-16-19 13 Unknown Reaction [facility] (20 sources) levoFLOXacin; 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: [levofloxacin] Drug Allergy 07-01-19 23 Tremor (finding) [facility] (1 source) diphenhydrAMINE Drug Allergy 04-20-19 [facility] (1 source) ezetimibe Drug Allergy 04-20-19 20 [facility] (1 source) Gemfibrozil Drug Allergy 04-20-19 [facility] (2 sources) Levamisole; 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: [Phenergan] Drug Allergy 07-16-19 13 [facility] (1 source) NSAIDs Drug allergy (disorder) 04-20-19 [facility] (1 source) Nasal Decongestant Drug allergy (disorder) 04-20-19 [facility] (1 source) Darvocet-N 100 Drug allergy (disorder) 04-20-19 [facility] (11 sources) diphenhydrAMINE; 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: [diphenhydramine] Drug Allergy jumpy,, Unknown [facility] (14 sources) Penicillin; 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: [penicillin] Drug Allergy Eruption of skin (disorder) [facility] (1 source) Histamine; 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: [HISTAMINE] Drug Allergy 02-04-20 13 [facility] Repository (4 sources) Penicillins; 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: [Penicillins] Propensity to adverse reactions 02-25-19 24 Rash [facility] (2 sources) Antihistamines Allergy to substance 02-26-19 Unknown Reaction [facility] (1 source) Promethazine Drug Allergy 12-07-19 18 [facility] Repository Medications Current Medications Medication Drug Class(es) [...] capsule (2 sources) Start: 04-15-2023 lactobacillus acidophilus [id number] unt oral tablet (2 sources) take 1 [...] procedure, # 2 cap(s), Refills(s) 0, Pharmacy: [facility]/pharmacy #[id number], 178, cm, 05/19/22 13:31:00 EDT, [...] Start: 01-26-2023 take 1 capsule by mo [facility] every twenty-four hours Vancomycin HCl 250 MG [...] disease (20 sources) Atherosclerotic heart disease of [place] coronary artery without angina pectoris; 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: [Coronary [...] 02-04-2022 Chronic Other aftercare (1 source) Other correction (current) drug therapy; 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: [OTH ASSISTED CURRENT DRUG THERAPY] Onset: 03-24-2022 Episodic Other [...] and visceral atherosclerosis (16 sources) 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; 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: [Atherosclerosis of [place] arteries of left leg with ulceration of [...] 11-02-2021 Episodic Other aftercare (1 source) 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; 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: [ASSISTED CURRENT [...] Value Interpretation Reference Range Facility [facility] 07-27-2023 Lab Reports [id number]#1.00TIFF Normal [facility] Lab Reports [id number]#1.00TIFF Normal [facility] Blood Urea Nitrogenon 2023 Urea nitrogen [Mass/Vol] 16 mg/dL Normal 7-25 [facility] Comment on above: Order Comment: STAT FOR CT Performed By: #### B ANNE MARIE SHARMA #### [place] [id number] [facility] CT abdomen pelvis w conon CT abdomen pelvis w con [facility] Main [place] [id number] Scan Report Signed Patient: Vincent Hsu MR#: [id number] 4 : 1935 Acct:[id number] Age/Sex: 87 / F ADM Date: 05/28/23 Loc: CT Room: Type: [facility] Attending Dr: Monie Wallace DO Copies to: [...] hernia. Impression dictated by: Jm Yen Jr., D.ORylee05/28/2023 1:34 PM Dictation Location: RADIO-PC-12 Transcribed By: IZABELA 05/28/23 1334 Dictated By: Jm Yen Jr, 05/28/23 1331 Signed By: 05/28/23 1334 Normal [facility] Creatinineon 05-28-2023 Creatinine [Mass/Vol] 1.07 mg/dL Normal 0.60-1.20 [facility] Comment on above: Order Comment: STAT FOR CT Performed By: #### B UN, CREAT #### [facility] [address] [place] [address] [place] GFR/1.73 sq M.predicted MDRD (S/P/Bld) [Vol rate/Area] 50.587 mL/min/{1.73_m2} Normal [facility] Comment on above: Order Comment: STAT FOR CT Result Comment: PERF ORMED BY: [place] [address] PATHOLOGIST DIRECTOR OF RESIDENTIAL SERVICES TIEN VELASQUEZ M.D. Performed By: #### B UN, CREAT #### [facility] [address] [place] [address] Creatinine [Mass/volume] in Serum or PlasmaOrdered By: Monie Wallace on 05-28-2023 Creatinine [Mass/Vol] 1.07 mg/dL 0.60-1.20 [facility] No Panel InformationOrdered By: Monie Wallace on 05-28-2023 Estimated GFR (CKD-EPI) 50.587 mL/Min [facility] Creatinine Clearance (Chem N/A [facility] Urea nitrogen [Mass/volume] in Serum or PlasmaOrdered By: Monie Wallace on 05-28-2023 Urea nitrogen [Mass/Vol] 16 mg/dL 7-25 [facility] No Panel InformationOrdered By: Gypsy Mcmahon on 05-25-2023 E coli Shiga Toxin EIA [facility] Salmonella/Shigella Screen [facility] IgA [Mass/volume] in Serum o r Plasmaon 05-24-2023 IgA [Mass/Vol] 64 mg/dL 64-422 [facility] Comment on above: Performed at: JONEL baron [address] [id number] Director: Salomon Mcarthur PhD, Phone: [phone] No Panel Informationon 05-23 Endomysial IgA Antibody Negative Negative [facility] Serum gliadin peptide IgA an tibody assay (units/volume)on 05-24-2023 Gliadin peptide IgA Qn (S) 4 units 0-19 [facility] Comment on above: Negative 0 - 19 Weak Positive 20 - 30 Moderate to Strong Positive >30 Serum gliadin peptide IgG an tibody assay (units/volume)on 05-24-2023 Gliadin peptide IgG Qn (S) 2 units 0-19 [facility] Comment on above: Negative 0 - 19 Weak Positive 20 - 30 Moderate to Strong Positive >30 Serum tissue transglutaminas e (tTG) IgA antibody assay (units/volume)on 05-24-2023 tTG IgA Qn (S) <2 U/mL 0-3 [facility] Comment on above: Negative 0 - 3 Weak Positive 4 - 10 Positive >10 Tissue Transglutaminase (tTG) has been identified as the endomysial antigen. Studies have demonstr- ated that endomysial IgA antibodies have over 99% specificity for gluten sensitive enteropathy. Serum tissue transglutaminas e (tTG) IgG antibody assay (units/volume)on 05-24-2023 tTG IgG Qn (S) <2 U/mL 0-5 [facility] Comment on above: Negative 0 - 5 Weak Positive 6 - 9 Positive >9 [facility] 05-10-2023 Lab Reports [id number]#1.00TIFF Normal [facility] Lab Reports [id number]#1.00TIFF Normal [facility] Lab Reports [id number]#1.00TIFF Normal [facility] Automated urine specific gra vity by refractometryon 05-06-2023 Specific gravity Refractometry automated (U) [Rel density] 1.025 1.005-1.02 5 [facility] Bilirubin Auto test strip (U ) [Mass/Vol]on 05-06-2023 Bilirubin (U) [Mass/Vol] Negative NEGATIVE [facility] Color Auto (U)on 05-06-2023 Color (U) YELLOW YELLOW [facility] Ketones Auto test strip (U) [Mass/Vol]on 05-06-2023 Ketones (U) [Mass/Vol] Negative NEGATIVE [facility] Lab Reportson 05-06-2023 Lab Reports [id number]#1.00TIFF Normal [facility] - Microbiology an d Antimicrobial susceptibilityOrdered By: Gypsy Mcmahon on 05-06-2023 Bacteria identified Cx Nom (U) [facility] Protein Auto test strip (U) [Mass/Vol]on 05-06-2023 Protein (U) [Mass/Vol] Negative NEG/TRACE [facility] Specific gravity Auto test s trip (U) [Rel density]on 05-06-2023 Specific gravity (U) [Rel density] CLEAR CLEAR [facility] Urine glucose measurement by test strip (mass/volume)on 05-06-2023 Glucose Test strip (U) [Mass/Vol] Negative NEGATIVE [facility] Urine hemoglobin detection b y automated test stripon 05-06-2023 Hemoglobin Auto test strip Ql (U) TRACE-I NEGATIVE [facility] Urine nitrite detection by a utomated test stripon 05-06-2023 Nitrite Auto test strip Ql (U) SMALL NEGATIVE [facility] Nitrite Auto test strip Ql (U) Positive NEGATIVE [facility] Urobilinogen Auto test strip (U) [Mass/Vol]on 05-06-2023 Urobilinogen Qn (U) 0.2 {Gen'U}/dL 0.2-1.0 [facility] pH Auto test strip (U)on pH (U) 5.5 [pH] 5.0-9.0 [facility] No Panel Informationon 04-30 Clostridium difficile (PCR)(LAB) Negative NEGATIVE [facility] No Panel Informationon 04-06 Clostridium difficile (PCR)(LAB) Positive Negative [facility] Comment on above: Toxigenic C difficil e: PositiveEpidemic Strain Bl/NAP1/027: Presumptive NegativePerformed at: CB - [facility] [address] [place], [place] [id number] Director: Salomon Mcarthur PhD, Phone: [phone] IntraOperative Documentson 0 02-12-2023 IntraOperative Documents [id number]#1.00TIFF Normal [facility] Physician Orderon 02-12-2023 Physician Order [id number]#1.00TIFF Normal [facility] Physician Order [id number]#1.00TIFF Normal [facility] ED Note-Physicianon 02-05-20 ED Note-Physician [id number]#1.00TIFF Normal [facility] Lab Reportson 02-04-2023 Lab Reports [id number]#1.00TIFF Normal [facility] Lab Reports [id number]#1.00TIFF Normal [facility] Lab Reports [id number]#1.00TIFF Normal [facility] Consent for Treatmenton 01-09 Consent for Treatment [id number]#1.00TIFF Normal [facility] Retail - Clinical Noteon Retail - Clinical Note [id number]#1.00TIFF Normal [facility] Lab Reportson 01-28-2023 Lab Reports [id number]#1.00TIFF Normal [facility] Physician Orderon 01-28-2023 Physician Order [id number]#1.00TIFF Normal [facility] Urology Office/Clinic Noteon 01-27-2023 [...] Urnls Dip Stick Auto w/o Microscopy POC 56614 2. 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 he agrees w above plan. 3. [...] the risks of side effects etc. Orders: [id number] Measure Post Void residual urine and/or bladder capacity by US- non-imaging Total time spent reviewing previous notes/results/external documents, preparing the chart, conducting the encounter with the patient and family, ordering tests/medications, and documenting the encounter was 40 minutes. Follow-up With When Contact Information MALATHI VIEIRA PA-C, URL [address] [place] [address] [phone] Additional Instructions: f/u in Spring Patient Education Urinary Tract Infection, Adult, Bzme-yj-Syzh Documentation recorded by the scribe Caprice Stratton accurately reflects the services(s) I performed and decisions made by me. Authenticated by Malathi Vieira PA-C on 01/27/2023 13:56:47. I, Caprice Stratton, personally scribed for Malathi Vieira PA-C on (more content not included)... Normal [facility] Comment on above: Result Comment: Elec tronically Signed By: MALATHI VIEIRA PA-C\.br\Date and Time Signed: 01/27/23 13:57 EST\.br\Electronically Co-Signed By: Caprice Stratton\.br\Date and Time Co-Signed: 01/26/23 16:09 EST Ambulatory Visit Summaryon 1 03-29-2022 Ambulatory Visit Summary VINCENT HSU :1935 Visit Date:01/26/2023 Ambulatory Visit Instructions Your Diagnosis Recurrent UTI Feeling of incomplete bladder emptying Colitis Tests Performed Urnls Dip Stick Auto w/o Microscopy POC 61762 Your Care Team Attending Physician - MALATHI [...] ZAZUETA, MALATHI Olvera Where: [facility] Patient Educationon 01-27-20 Patient [...] these instructions at home: Medicines ? Take vuis-btb-nwjsiyy and prescription medicines only as told by [...] provider. Document Revised: 09/06/2020 Document Reviewed: 09/06/2020 [employer] Patient Education ? 2022 [employer]. [facility] Lab Reportson 01-25-2023 Lab Reports [id number]#1.00TIFF [facility] Lab Reports [id number]#1.00TIFF [facility] Lab Reports [id number]#1.00TIFF [facility] Lab Reportson 12-03-2022 Lab Reports [id number]#1.00TIFF [facility] Physician Orderon 12-01-2022 Physician Order [id number]#1.00TIFF [facility] Office Visiton 11-11-2022 Follow-up visit [id number] Vincent Hsu 1935 F Date Provider Department Center 11/11/2022 Kulwinder-JAKE BARRY CARD [facility] Family History Problem Relation Age of Onset Aneurysm Mother Heart attack Father Family Status - Relation Status Age at Mother Father Level of Service:06830 CO OFFICE/OUTPATIENT ESTABLISHED LOW MDM 20-29 MIN Normal [facility] Lab Reportson 09-25-2022 Lab Reports [id number]#1.00CD:12 7 Normal [facility] Lab Reports [id number]#1.00CD:12 7 Normal [facility] Physician Orderon 09-23-2022 Physician Order [id number]#1.00CD:12 7 Normal [facility] Screenson 09-23-2022 Screens [id number]#1.00CD:12 7 Normal [facility] Ambulatory Visit Summaryon 0 09-22-2022 Ambulatory Visit Summary VINCENT HSU :1935 Visit Date:09/22/2022 Ambulatory Visit Instructions [...] Appointments Wednesday 1:00 PM EST With: DEB PA-C, MALATHI E Where: [facility] Normal [facility] Patient Educationon 09-23-19 Patient Education [...] these instructions at home: Medicines ? Take mghn-fec-oxushwl and prescription medicines only as told by [...] Reviewed: 09/06/2020 Else[employer] Patient Education ? 2022 [employer] [facility] Urology Office/Clinic Noteon 09-22-2022 Urology Office/Clinic [...] symptoms not resolved. C&S this morning at [facility] ( not finalized) UTI symptoms Memory issues, [...] resolved per daughter. C&S this morning at [facility] (not finalized) - will call pt w/ [...] up having to send a U.Cx to [facility] so we can review the results. [...] When Contact Information MALATHI VIEIRA PA-C, URL [address] [address] Additional Instructions: Patient Education Urinary Tract Infection, Adult, Jaaq-yy-Npws IJazlyn, personally scribed for Malathi Vieira PA-C [...] 3 mg (more content not included)... Normal [facility] Comment on above: Result Comment: Elec tronically Signed By: MALATHI VIEIRA PA-C\.br\Date and Time Signed: 09/22/22 16:16 EDT\.br\Electronically Co-Signed By: Jazlyn Lucero\.br\Date and Time Co-Signed: 09/22/22 15:38 EDT Office Visiton 06-30-2022 Follow-up visit [id number] Vincent Hsu 1935 F Date Provider Department Center 06/30/2022 Kulwinder-JAKE BARRY CARD [facility] Family History Problem Relation Age of Onset Aneurysm Mother Heart attack Father Family Status - Relation Status Age at Mother Father Level of Service:41617 CO OFFICE/OUTPATIENT NEW MODERATE MDM 45-59 MINUTES Normal [facility] CT ABD/PELVIS WO CONon 05-27 CT [...] MI NUÑEZ Date: 2022-05-27 10:34 Normal [facility] CULTURE URINEon 05-14-2022 [...] Trimethoprim/Sulfamethoxa zole <=20 S F Normal [facility] Comment on above: Performed By: #### U RCX #### [facility] [address] [place], [place] [address] Dr. Anthony Bonilla UA RANDOMon 05-11-2022 Bilirubin Ql (U) Negative Normal NEGATIVE [facility] Comment on above: Performed By: #### U RCX #### [facility] [address] [place], [place] [address] Dr. Anthony Bonilla Clarity (U) SL CLOUDY Abnormal CLEAR [facility] Comment on above: Performed By: #### U RCX #### [facility] [address] [address] [address] Anthony Bonilla Color (U) LT. YELLOW Normal YELLOW [facility] Comment on above: Performed By: #### U RCX #### [facility] [address] [address] [address] Anthony Bonilla Glucose Ql (U) Negative Normal NEGATIVE The [facility] Comment on above: Performed By: #### U RCX #### [facility] [address] [place] [address] Dr. Anthony Bonilla Hemoglobin Ql (U) Negative Normal NEGATIVE [facility] Comment on above: Performed By: #### U RCX #### [facility] [address] [place] [address] Dr. Anthony Bonilla Ketones Ql (U) Negative Normal NEGATIVE [facility] Comment on above: Performed By: #### U RCX #### [facility] [address] [place] [address] Dr. Anthony Bonilla LEUKOCYTES MODERATE Abnormal NEGATIVE [facility] Comment on above: Performed By: #### U RCX #### [facility] [address] [address] [address] Anthony Bonilla Nitrite Ql (U) Negative Normal NEGATIVE [facility] Comment on above: Performed By: #### U RCX #### [facility] [address] [place] [address] Dr. Anthony Bonilla pH (U) 5.5 [pH] Normal 5-9 [facility] Comment on above: Performed By: #### U RCX #### [facility] [address] [place] [address] Dr. Anthony Bonilla SPEC GRAVITY 1.020 Normal 1.005-<=1. 025 [facility] Comment on above: Performed By: #### U RCX #### [facility] [address] [place] [address] Dr. Anthony Bonilla UA PROTEIN Negative Normal NEGATIVE/ TRACE [facility] Comment on above: Performed By: #### U RCX #### [facility] [address] [place] [address] Dr. Anthony Bonilla Urobilinogen Qn (U) 0.2 {Gen'U}/dL Normal 0.2 - 1. 0 [facility] Comment on above: Performed By: #### U RCX #### [facility] [address] [place] [address] Dr. Anthony Bonilla CULTURE URINEon 05-01-2022 CULTURE [...] Trimethoprim/Sulfamethoxa zole <=20 S F Normal [facility] Comment on above: Performed By: #### U RCX #### [facility] [address] [place] [address] Dr. Anthony Bonilla CULTURE URINEon 04-16-2022 CULTURE [...] F Nitrofurantoin 64 I F Normal [facility] Comment on above: Performed By: #### U RCX #### [facility] [address] [place] [address] Dr. Anthony Bonilla UA RANDOMon 04-14-2022 Bilirubin Ql (U) Negative Normal NEGATIVE [facility] Comment on above: Performed By: #### U RCX #### [facility] [address] [place] [address] Dr. Anthony Bonilla Clarity (U) CLEAR Normal CLEAR [facility] Comment on above: Performed By: #### U RCX #### [facility] [address] [place] [address] Dr. Anthony Bonilla Color (U) LT. YELLOW Normal YELLOW [facility] Comment on above: Performed By: #### U RCX #### [facility] [address] [place] [address] Dr. Anthony Bonilla Glucose Ql (U) Negative Normal NEGATIVE [facility] Comment on above: Performed By: #### U RCX #### [facility] [address] [place] [address] Dr. Anthony Bonilla Hemoglobin Ql (U) Negative Normal NEGATIVE [facility] Comment on above: Performed By: #### U RCX #### [facility] [address] [place] [address] Dr. Anthony Bonilla Ketones Ql (U) Negative Normal NEGATIVE [facility] Comment on above: Performed By: #### U RCX #### [facility] [address] [place] [address] Dr. Anthony Bonilla LEUKOCYTES MODERATE Abnormal NEGATIVE [facility] Comment on above: Performed By: #### U RCX #### [facility] [address] [place] [address] Dr. Anthony Bonilla Nitrite Ql (U) Negative Normal NEGATIVE [facility] Comment on above: Performed By: #### U RCX #### [facility] [address] [address] [address] Anthony Bonilla pH (U) 5.5 [pH] Normal 5-9 [facility] Comment on above: Performed By: #### U RCX #### [facility] [address] [address] [address] Anthony Bonilla SPEC GRAVITY 1.020 Normal 1.005-<=1. 025 [facility] Comment on above: Performed By: #### U RCX #### [facility] [address] [address] [address] Anthony Bonilla UA PROTEIN Negative Normal NEGATIVE/ TRACE [facility] Comment on above: Performed By: #### U RCX #### [facility] [address] [address] [address] Anthony Bonilla Urobilinogen Qn (U) 0.2 {Gen'U}/dL Normal 0.2 - 1. 0 [facility] Comment on above: Performed By: #### U RCX #### [facility] [address] [address] [address] Anthony Bonilla Urinalysis - DIPSTICKon 03-12 Appearance (U) clear [employer] Code Other Bilirubin Ql (U) [employer] Other Color (U) dark yellow [employer] Other Glucose Ql (U) Negative Dress Code Other Hemoglobin Ql (U) Negative [employer] Other Ketones Ql (U) trace Dress Code Other Leukocyte esterase Test strip Ql (U) [employer] Other Nitrite Ql (U) Negative [employer] Other pH (U) 5.0 [pH] [employer] Other Protein Ql (U) Negative [employer] Other Specific gravity (U) [Rel density] 1.015 [facility] [employer] Other Urobilinogen (U) [Mass/Vol] 0.2 mg/dL [employer] Other Urinalysis - DIPSTICK [employer] Other Urine Cultureon 03-30-2022 Urine Culture 10,000 [facility] [employer] Other Bacteria identified Cx Nom (U) [facility] [employer] Other CULTURE URINEon 03-23-2022 CULTURE URINE Isolate 1 Pseudomonas aeruginosa >100,000 cfu/mL of ORGANISM 1 Pseudomonas aeruginosa ANTIBIOTIC M.I.C RX STATUS Piperacillin/Tazobactam 8 S F Ceftazidime 4 S F Imipenem 1 S F Amikacin <=2 S F Gentamicin <=1 S F Tobramycin <=1 S F Ciprofloxacin <=0.25 S F Levofloxacin 0.5 S F Normal [facility] Comment on above: Performed By: #### U RCX #### [facility] [address] [address] [address] Anthony Bonilla CARDIAC DARWIN ADMITon 023 CK [Catalytic activity/Vol] 137 U/L Normal 26-192 [facility] Comment on above: Performed By: #### U RCX #### [facility] [address] [address] [address] Anthony Bonilla CK.MB [Mass/Vol] 1.05 ng/mL Normal <=3.60 [facility] Comment on above: Performed By: #### U RCX #### [facility] [address] [address] [address] Anthony Bonilla HSTROP 17.6 pg/mL Normal 4.0-51.3 [facility] Comment on above: Result Comment: CUT- OFF POINTS HAVE BEEN ESTABLISHED BASED ON THE FOURTH UNIVERSAL DEFINITIONS OF MYOCARDIAL INFARCTION. THE UPPER REFERENCE LIMIT (URL) OF TROPONIN, DEFINED THE 99TH PERCENTILE OF cTnI DISTRIBUTION IN A REFERENCE POPULATION, HAS BEEN CONFIRMED THE DECISION THRESHOLD FOR NE DIAGNOSIS. Performed By: #### U RCX #### [facility] [address] [address] [address] Anthony Bonilla CANDIDA 72 ng/mL Normal 9-82 [facility] Comment on above: Performed By: #### U RCX #### [facility] [address] [place] [address] Dr. Anthony Bonilla CBC AUTO DIFFon 03-20-2022 BASO # 0.0 103/ul Normal 0.0-0.1 [facility] Comment on above: Performed By: #### C BC #### [facility] [address] [place] [address] Dr. Anthony Bonilla Basophils/100 WBC (Bld) 0.3 % Normal 0.2-2.0 [facility] Comment on above: Performed By: #### C BC #### [facility] [address] [place] [address] Dr. Anthony Bonilla EO # 0.0 103/ul Normal 0.0-0.7 [facility] Comment on above: Performed By: #### C BC #### [facility] [address] [place] [address] Dr. Anthony Bonilla Eosinophils/100 WBC (Bld) 0.1 % Critically low 0.9-7.0 [facility] Comment on above: Performed By: #### C BC #### [facility] [address] [place] [address] Dr. Anthony Bonilla Erythrocyte distribution width (RBC) [Ratio] 15.9 % Critically high 11.0-15.0 [facility] Comment on above: Performed By: #### C BC #### [facility] [address] [place] [address] Dr. Anthony Bonilla Hematocrit (Bld) [Volume fraction] 33.6 % Critically low 36.0-48.0 [facility] Comment on above: Performed By: #### C BC #### [facility] [address] [place] [address] Dr. Anthony Bonilla Hemoglobin (Bld) [Mass/Vol] 11.2 g/dL Critically low 12.0-16.0 [facility] Comment on above: Performed By: #### C BC #### [facility] [address] [address] [address] Anthony Bonilla IG # 0.04 10e3/ul Critically high 0.00-0.03 [facility] Comment on above: Performed By: #### C BC #### [facility] [address] [address] [address] Anthony Bonilla IG % 0.3 % Normal 0.0-0.5 [facility] Comment on above: Performed By: #### C BC #### [facility] [address] [place] [address] Dr. Anthony Bonilla LYMPH # 0.8 103/ul Critically low 1.2-3.8 [facility] Comment on above: Performed By: #### C BC #### [facility] [address] [place] [address] Dr. Anthony Bonilla Lymphocytes/100 WBC (Bld) 6.4 % Critically low 20.5-60.0 [facility] Comment on above: Performed By: #### C BC #### [facility] [address] [place] [address] Dr. Anthony Bonilla MANUAL DIFF REQ NO Normal [facility] Comment on above: Performed By: #### C BC #### [facility] [address] [place] [address] Dr. Anthony Bonilla MCH (RBC) [Entitic mass] 28.9 pg Normal 26.7-34.0 [facility] Comment on above: Performed By: #### C BC #### [facility] [address] [place] [address] Dr. Anthony Bonilla MCHC (RBC) [Mass/Vol] 33.3 g/dL Normal 29.9-35.2 [facility] Comment on above: Performed By: #### C BC #### [facility] [address] [place] [address] Dr. Anthony Bonilla MCV (RBC) [Entitic vol] 86.8 fL Normal 81.0-99.0 [facility] Comment on above: Performed By: #### C BC #### [facility] [address] [place] [address] Dr. Anthony Bonilla MONO # 1.1 103/ul Critically high 0.3-0.8 [facility] Comment on above: Performed By: #### C BC #### [facility] [address] [place] [address] Dr. Anthony Bonilla Monocytes/100 WBC (Bld) 8.3 % Normal 1.7-12.0 [facility] Comment on above: Performed By: #### C BC #### [facility] [address] [place] [address] Dr. Anthony Bonilla NEUT # 11.2 103/ul Critically high 1.4-6.5 [facility] Comment on above: Performed By: #### C BC #### [facility] [address] [place] [address] Dr. Anthony Bonilla Neutrophils/100 WBC (Bld) 84.6 % Critically high 43.0-75.0 [facility] Comment on above: Performed By: #### C BC #### [facility] [address] [place] [address] Dr. Anthony Bonilla Platelet mean volume (Bld) [Entitic vol] 9.7 fL Normal 9.5-13.5 [facility] Comment on above: Performed By: #### C BC #### [facility] [address] [place] [address] Dr. Anthony Bonilla PLT 274 103/ul Normal 150-450 [facility] Comment on above: Performed By: #### C BC #### [facility] [address] [place] [address] Dr. Anthony Bonilla RBC 3.87 106/ul Critically low 4.20-5.40 [facility] Comment on above: Performed By: #### C BC #### [facility] [address] [place] [address] Dr. Anthony Bonilla WBC 13.2 103/ul Critically high 4.0-11.0 [facility] Comment on above: Performed By: #### C BC #### [facility] [address] [place] [address] HEAD WO CONon [...] CLAU SHAH Date: 2022-03-20 20:30 Normal [facility] URINE PROFILEon 3 Bilirubin Ql (U) Negative Normal NEGATIVE [facility] Comment on above: Performed By: #### C BC #### [facility] [address] [place] [address] Dr. Anthony Bonilla Clarity (U) CLEAR Normal CLEAR [facility] Comment on above: Performed By: #### C BC #### [facility] [address] [place] [address] Dr. Anthony Bonilla Color (U) LT. YELLOW Normal YELLOW [facility] Comment on above: Performed By: #### C BC #### [facility] [address] [place] [address] Dr. Anthony BANGURA A micrscopic examina tion will be performed if indicated. Normal [facility] Comment on above: Performed By: #### C BC #### [facility] [address] [place] [address] Dr. Anthony Bonilla Glucose Ql (U) Negative Normal NEGATIVE [facility] Comment on above: Performed By: #### C BC #### [facility] [address] [place] [address] Dr. Anthony Bonilla Hemoglobin Ql (U) LARGE Abnormal NEGATIVE [facility] Comment on above: Performed By: #### C BC #### [facility] [address] [place] [address] Dr. Anthony Bonilla Ketones Ql (U) Negative Normal NEGATIVE [facility] Comment on above: Performed By: #### C BC #### [facility] [address] [place] [address] Dr. Anthony Bonilla LEUKOCYTES SMALL Abnormal NEGATIVE [facility] Comment on above: Performed By: #### C BC #### [facility] [address] [place] [address] Dr. Anthony Bonilla Nitrite Ql (U) Positive Abnormal NEGATIVE [facility] Comment on above: Performed By: #### C BC #### [facility] [address] [place] [address] Dr. Anthony Bonilla pH (U) 7.0 [pH] Normal 5-9 [facility] Comment on above: Performed By: #### C BC #### [facility] [address] [place] [address] Dr. Anthony Bonilla Protein (U) [Mass/Vol] 30 mg/dL Abnormal NEGAT JAMAR/ TRACE [facility] Comment on above: Performed By: #### C BC #### [facility] [address] [place] [address] Dr. Anthony Bonilla SPEC GRAVITY 1.015 Normal 1.005-<=1. 025 [facility] Comment on above: Performed By: #### C BC #### [facility] [address] [place] [address] Dr. Anthony Bonilla UR MICRO IND INDICATED Normal [facility] Comment on above: Performed By: #### C BC #### [facility] [address] [place] [address] Dr. Anthony Bonilla Urobilinogen Qn (U) 1.0 {Gen'U}/dL Normal 0.2 - 1. 0 [facility] Comment on above: Performed By: #### C BC #### [facility] [address] [place] [address] Dr. Anthony Bonilla PROF 14(COMP METB)on 023 Albumin [Mass/Vol] 3.4 g/dL Normal 3.4-5.0 [facility] Comment on above: Performed By: #### U RCX #### [facility] [address] [place] [address] Dr. Anthony Bonilla Albumin/Globulin [Mass ratio] 1.2 {ratio} Normal [facility] Comment on above: Performed By: #### U RCX #### [facility] [address] [place] [address] Dr. Anthony Bonilla ALP [Catalytic activity/Vol] 26 U/L Critically low 46-116 [facility] Comment on above: Performed By: #### U RCX #### [facility] [address] [place] [address] Dr. Anthony Bonilla ALT [Catalytic activity/Vol] 21 U/L Normal 14-59 [facility] Comment on above: Performed By: #### U RCX #### [facility] [address] [place] [address] Dr. Anthony Bonilla Anion gap [Moles/Vol] 13.7 mmol/L Normal Th e [facility] Comment on above: Performed By: #### U RCX #### [facility] [address] [place] [address] Dr. Anthony Bonilla AST [Catalytic activity/Vol] 20 U/L Normal 15-37 [facility] Comment on above: Performed By: #### U RCX #### [facility] [address] [place] [address] Dr. Anthony Bonilla Bilirubin [Mass/Vol] 1.2 mg/dL Critically high 0.2-1.0 [facility] Comment on above: Performed By: #### U RCX #### [facility] [address] [place] [address] Dr. Anthony Bonilla Calcium [Mass/Vol] 9.4 mg/dL Normal 8.5-10.1 [facility] Comment on above: Performed By: #### U RCX #### [facility] [address] [address] [address] Anthony Bonilla Chloride [Moles/Vol] 99 mmol/L Normal 98-107 [facility] Comment on above: Performed By: #### U RCX #### [facility] [address] [place] [address] Dr. Anthony Bonilla CO2 [Moles/Vol] 29.1 mmol/L Normal 21.0-32.0 [facility] Comment on above: Performed By: #### U RCX #### [facility] [address] [place] [address] Dr. Anthony Bonilla Creatinine [Mass/Vol] 1.02 mg/dL Normal 0.55-1.02 [facility] Comment on above: Performed By: #### U RCX #### [facility] [address] [place] [address] Dr. Anthony Bonilla EGFR-AF SOUTH [place]FR[place] >60 Normal >=60 [facility] Comment on above: Performed By: #### U RCX #### [facility] [address] [place] [address] Dr. Anthony Bonilla EGFR-NON AF S[place]TH [place]FR[place] 52 mL/min/1.73m2 Critically low >=60 [facility] Comment on above: Performed By: #### U RCX #### [facility] [address] [address] [address] Anthony Bonilla Globulin (S) [Mass/Vol] 2.9 g/dL Normal [facility] Comment on above: Performed By: #### U RCX #### [facility] [address] [place] [address] Dr. Anthony Bonilla Glucose [Mass/Vol] 98 mg/dL Normal 74-106 [facility] Comment on above: Performed By: #### U RCX #### [facility] [address] [place] [address] Dr. Anthony Bonilla Potassium [Moles/Vol] 3.8 mmol/L Normal 3.5-5.1 [facility] Comment on above: Performed By: #### U RCX #### [facility] [address] [place] [address] Dr. Anthony Bonilla Protein [Mass/Vol] 6.3 g/dL Critically low 6.4-8.2 [facility] Comment on above: Performed By: #### U RCX #### [facility] [address] [place] [address] Dr. Anthony Bonilla Sodium [Moles/Vol] 138 mmol/L Normal 136-145 [facility] Comment on above: Performed By: #### U RCX #### [facility] [address] [place] [address] Dr. Anthony Bonilla Urea nitrogen [Mass/Vol] 16.0 mg/dL Normal 7.0-18.0 [facility] Comment on above: Performed By: #### U RCX #### [facility] [address] [place] [address] Dr. Anthony Bnoilla Urea nitrogen/Creatinine [Mass ratio] 15.7 mg/mg Normal [facility] Comment on above: Performed By: #### U RCX #### [facility] [address] [place] [address] Dr. Anthony Bonilla URINE MICROSCOPIC ONLYon BACTERIA LARGE Abnormal NONE SEEN [facility] Comment on above: Performed By: #### C BC #### [facility] [address] [place] [address] Dr. Anthony Bonilla Bacteria identified Cx Nom (U) INDICATED Normal [facility] Comment on above: Performed By: #### C BC #### [facility] [address] [place] [address] Dr. Anthony Bonilla CAST NONE SEEN Normal NONE SEEN [facility] Comment on above: Performed By: #### C BC #### [facility] [address] [place] [address] Dr. Anthony Bonilla Crystals LM Nom (Urine sed) NONE SEEN Normal NONE SEEN [facility] Comment on above: Performed By: #### C BC #### [facility] [address] [place] [address] Dr. Anthony Bonilla Epithelial cells LM Ql (Urine sed) FEW Abnormal NONE SEEN /RARE [facility] Comment on above: Performed By: #### C BC #### [facility] [address] [place] [address] Dr. Anthony Bonilla MUCOUS NONE SEEN Normal NONE SEEN [facility] Comment on above: Performed By: #### C BC #### [facility] [address] [place] [address] Dr. Anthony Bonilla RBC 10-20 Abnormal 0-2 [facility] Comment on above: Performed By: #### C BC #### [facility] [address] [place] [address] Dr. Anthony Bonilla WBC 50-75 Abnormal NONE SEEN [facility] Comment on above: Performed By: #### C BC #### [facility] [address] [place] [address] Dr. Anthony Bonilla CALPROTECTIN, FECALon 2022 Calprotectin, Fecal 416 ug/g Critically high 0-120 [facility] Comment on above: Result Comment: Conc entration Interpretation Follow-Up <16 - 50 ug/g Normal None >50 -120 ug/g Borderline Re-evaluate in 4-6 weeks >120 ug/g Abnormal Repeat as clinically indicated Performed By: #### U RCX #### [facility] [address] [place] [address] Dr. Anthony Bonilla QUANTIFERON TB GOLD PLUSon 0 02-19-2022 QuantiFERON Criteria Comment Normal [facility] Comment on above: Result Comment: Butch tiFERON-TB [...] test. Performed By: #### U RCX #### [facility] [address] [place] [address] Dr. Anthony Bonlila QuantiFERON Incubation Incubation performed. Normal [facility] Comment on above: Performed By: #### U RCX #### [facility] [address] [place] [address] Dr. Anthony Bonilla QuantiFERON Mitogen Value >10.00 Normal [facility] Comment on above: Performed By: #### U RCX #### [facility] [address] [place] [address] Dr. Anthony Bonilla QuantiFERON Nil Value 0.07 IU/mL Normal [facility] Comment on above: Performed By: #### U RCX #### [facility] [address] [place] [address] Dr. Anthony Bonilla QuantiFERON TB1 Ag Value 0.08 IU/mL Normal [facility] Comment on above: Performed By: #### U RCX #### [facility] [address] [place] [address] Dr. Anthony Bonilla QuantiFERON TB2 Ag Value 0.07 IU/mL Normal [facility] Comment on above: Performed By: #### U RCX #### [facility] [address] [place] [address] Dr. Anthony Bonilla QuantiFERON-TB Gold Plus Negative Normal Negative [facility] Comment on above: Result Comment: No r esponse to M tuberculosis antigens detected. Infection with M tuberculosis is unlikely, but high risk individuals should be considered for additional testing (ATS/IDSA/CDC Clinical Practice Guidelines, 2017). The reference range is an Antigen minus Nil result of <0.35 IU/mL. Chemiluminescence immunoassay methodology Performed By: #### U RCX #### [facility] [address] [place] [address] Dr. Anthony Bonilla HEP B SURFACE ANTIGEN SCREEN on 02-18-2022 HBsAg Screen Negative Normal Negative [facility] Comment on above: Performed By: #### U RCX #### [facility] [address] [place] [address] Dr. Anthony Bonilla HEPATITIS B CORE, IgMon 02-08 Hep B Core Ab, IgM Negative Normal Negative [facility] Comment on above: Performed By: #### U RCX #### [facility] [address] [place] [address] Dr. Anthony Bonilla HEPATITIS B SURFACE ANTIBODY , QUANTon 02-18-2022 Hepatitis B Surf AB Quant <3.1 Critically low Immunity>9 .9 [facility] Comment on above: Result Comment: Stat us of Immunity Anti-HBs Level Inconsistent with Immunity 0.0 - 9.9 Consistent with Immunity >9.9 Performed By: #### C BC #### [facility] [address] [place] [address] Dr. Anthony Bonilla CBC AUTO DIFFon 02-17-2022 BASO # 0.0 103/ul Normal 0.0-0.1 [facility] Comment on above: Performed By: #### U RCX #### [facility] [address] [place] [address] Dr. Anthony Bonilla Basophils/100 WBC (Bld) 0.4 % Normal 0.2-2.0 [facility] Comment on above: Performed By: #### U RCX #### [facility] [address] [place] [address] Dr. Anthony Bonilla EO # 0.0 103/ul Normal 0.0-0.7 [facility] Comment on above: Performed By: #### U RCX #### [facility] [address] [place] [address] Dr. Anthony Bonilla Eosinophils/100 WBC (Bld) 0.5 % Critically low 0.9-7.0 [facility] Comment on above: Performed By: #### U RCX #### [facility] [address] [place] [address] Dr. Anthony Bonilla Erythrocyte distribution width (RBC) [Ratio] 14.7 % Normal 11.0-15.0 [facility] Comment on above: Performed By: #### U RCX #### [facility] [address] [address] [address] Anthony Bonilla Hematocrit (Bld) [Volume fraction] 33.2 % Critically low 36.0-48.0 [facility] Comment on above: Performed By: #### U RCX #### [facility] [address] [address] [address] Anthony Bonilla Hemoglobin (Bld) [Mass/Vol] 11.0 g/dL Critically low 12.0-16.0 [facility] Comment on above: Performed By: #### U RCX #### [facility] [address] [address] [address] Anthony Bonilla IG # 0.02 10e3/ul Normal 0.00-0.03 [facility] Comment on above: Performed By: #### U RCX #### [facility] [address] [place] [address] Dr. Anthony Bonilla IG % 0.2 % Normal 0.0-0.5 [facility] Comment on above: Performed By: #### U RCX #### [facility] [address] [place] [address] Dr. Anthony Bonilla LYMPH # 1.3 103/ul Normal 1.2-3.8 [facility] Comment on above: Performed By: #### U RCX #### [facility] [address] [place] [address] Dr. Anthony Bonilla Lymphocytes/100 WBC (Bld) 14.8 % Critically low 20.5-60.0 [facility] Comment on above: Performed By: #### U RCX #### [facility] [address] [place] [address] Dr. Anthony Bonilla MANUAL DIFF REQ NO Normal [facility] Comment on above: Performed By: #### U RCX #### [facility] [address] [place], [place] [address] Dr. Anthony Bonilla MCH (RBC) [Entitic mass] 29.0 pg Normal 26.7-34.0 [facility] Comment on above: Performed By: #### U RCX #### [facility] [address] [address] [address] Anthony Bonilla MCHC (RBC) [Mass/Vol] 33.1 g/dL Normal 29.9-35.2 [facility] Comment on above: Performed By: #### U RCX #### [facility] [address] [address] [address] Anthony Bonilla MCV (RBC) [Entitic vol] 87.6 fL Normal 81.0-99.0 [facility] Comment on above: Performed By: #### U RCX #### [facility] [address] [address] [address] Anthony Bonilla MONO # 0.8 103/ul Normal 0.3-0.8 [facility] Comment on above: Performed By: #### U RCX #### [facility] [address] [place] [address] Dr. Anthony Bonilla Monocytes/100 WBC (Bld) 9.6 % Normal 1.7-12.0 [facility] Comment on above: Performed By: #### U RCX #### [facility] [address] [place] [address] Dr. Anthony Bonilla NEUT # 6.3 103/ul Normal 1.4-6.5 [facility] Comment on above: Performed By: #### U RCX #### [facility] [address] [place] [address] Dr. Anthony Bonilla Neutrophils/100 WBC (Bld) 74.5 % Normal 43.0-75.0 [facility] Comment on above: Performed By: #### U RCX #### [facility] [address] [place] [address] Dr. Anthony Bonilla Platelet mean volume (Bld) [Entitic vol] 9.8 fL Normal 9.5-13.5 [facility] Comment on above: Performed By: #### U RCX #### [facility] [address] [place] [address] Dr. Anthony Bonilla PLT 318 103/ul Normal 150-450 [facility] Comment on above: Performed By: #### U RCX #### [facility] [address] [address] [address] Anthony Bonilla RBC 3.79 106/ul Critically low 4.20-5.40 [facility] Comment on above: Performed By: #### U RCX #### [facility] [address] [address] [address] Anthony Bonilla WBC 8.5 103/ul Normal 4.0-11.0 [facility] Comment on above: Performed By: #### U RCX #### [facility] [address] [place] [address] Dr. Anthony Bonilla PROF 14(COMP METB)on 023 Albumin [Mass/Vol] 3.6 g/dL Normal 3.4-5.0 [facility] Comment on above: Performed By: #### U RCX #### [facility] [address] [place] [address] Dr. Anthony Bonilla Albumin/Globulin [Mass ratio] 1.2 {ratio} Normal [facility] Comment on above: Performed By: #### U RCX #### [facility] [address] [address] [address] Anthony Bonilla ALP [Catalytic activity/Vol] 27 U/L Critically low 46-116 [facility] Comment on above: Performed By: #### U RCX #### [facility] [address] [place] [address] Dr. Anthony Bonilla ALT [Catalytic activity/Vol] 21 U/L Normal 14-59 [facility] Comment on above: Performed By: #### U RCX #### [facility] [address] [address] [address] Anthony Bonilla Anion gap [Moles/Vol] 13.5 mmol/L Normal [facility] Comment on above: Performed By: #### U RCX #### [facility] [address] [place] [address] Dr. Anthony Bonilla AST [Catalytic activity/Vol] 19 U/L Normal 15-37 [facility] Comment on above: Performed By: #### U RCX #### [facility] [address] [address] [address] Anthony Bonilla Bilirubin [Mass/Vol] 0.6 mg/dL Normal 0.2-1.0 [facility] Comment on above: Performed By: #### U RCX #### [facility] [address] [address] [address] Anthony Bonilla Calcium [Mass/Vol] 9.2 mg/dL Normal 8.5-10.1 [facility] Comment on above: Performed By: #### U RCX #### [facility] [address] [address] [address] Anthony Bonilla Chloride [Moles/Vol] 104 mmol/L Normal 98-107 [facility] Comment on above: Performed By: #### U RCX #### [facility] [address] [address] [address] Anthony Bonilla CO2 [Moles/Vol] 28.9 mmol/L Normal 21.0-32.0 [facility] Comment on above: Performed By: #### U RCX #### [facility] [address] [address] [address] Anthony Bonilla Creatinine [Mass/Vol] 1.21 mg/dL Critically high 0.55-1.02 [facility] Comment on above: Performed By: #### U RCX #### [facility] [address] [address] [address] Anthony Bonilla EGFR-AF SOUTH AFRICAN 51 mL/min/1.73m2 Critically low >=60 [facility] Comment on above: Performed By: #### U RCX #### [facility] [address] [address] [address] Anthony Bonilla EGFR-NON AF SOUTH AFR[place] 42 mL/min/1.73m2 Critically low >=60 [facility] Comment on above: Performed By: #### U RCX #### [facility] [address] [address] [address] Anthony Bonilla Globulin (S) [Mass/Vol] 3.1 g/dL Normal [facility] Comment on above: Performed By: #### U RCX #### [facility] [address] [address] [address] Anthony Bonilla Glucose [Mass/Vol] 107 mg/dL Critically high 74-106 [facility] Comment on above: Performed By: #### U RCX #### [facility] [address] [address] [address] Anthony Bonilla Potassium [Moles/Vol] 3.4 mmol/L Critically low 3.5-5.1 [facility] Comment on above: Performed By: #### U RCX #### [facility] [address] [address] [address] Anthony Bonilla Protein [Mass/Vol] 6.7 g/dL Normal 6.4-8.2 [facility] Comment on above: Performed By: #### U RCX #### [facility] [address] [address] [address] Anthony Bonilla Sodium [Moles/Vol] 143 mmol/L Normal 136-145 [facility] Comment on above: Performed By: #### U RCX #### [facility] [address] [address] [address] Anthony Bonilla Urea nitrogen [Mass/Vol] 22.0 mg/dL Critically high 7.0-18.0 [facility] Comment on above: Performed By: #### U RCX #### [facility] [address] [address] [address] Anthony Bonilla Urea nitrogen/Creatinine [Mass ratio] 18.2 mg/mg Normal [facility] Comment on above: Performed By: #### U RCX #### [facility] [address] [address] [address] Anthony Bonilla Automated erythrocytes count in urine sediment (number/area)Ordered By: Gypsy Mcmahon on 02-16-2022 RBC Auto (Urine sed) [#/Area] 0-1 [HPF] 0-4 [facility] Automated leukocytes count i n urine sediment (number/area)Ordered By: Gypsy Mcmahon on 02-16-2022 WBC Auto (Urine sed) [#/Area] 20-49 [HPF] 0-4 [facility] Bilirubin Test strip Ql (U)O rdered By: Gypsy Mcmahon on 02-16-2022 Bilirubin Ql (U) Negative Negative [facility] Color Auto (U)Ordered By: Nicole Mcmahon on 02-16-2022 Color (U) Yellow Yellow [facility] Ketones Auto test strip (U) [Mass/Vol]Ordered By: Gypsy Mcmahon on 02-16-2022 Ketones (U) [Mass/Vol] Trace Negative [facility] - UrinalysisOrder ed By: Gypsy Mcmahon on 02-16-2022 Hyaline casts LM Ql (Urine sed) 9-19 [LPF] 0-8 [facility] Nitrite Test strip Ql (U)Ord ered By: Gypsy Mcmahon on 02-16-2022 Nitrite Ql (U) Positive Negative [facility] Protein Auto test strip (U) [Mass/Vol]Ordered By: Gypsy Mcmahon on 02-16-2022 Protein (U) [Mass/Vol] Negative Negative [facility] Specific gravity Auto test s trip (U) [Rel density]Ordered By: Gypsy Mcmahon on 02-16-2022 Specific gravity (U) [Rel density] 1.018 1.001-1.03 0 [facility] Squamous epithelial cells de tection in urine sediment by light microscopyOrdered By: Gypsy Mcmahon on 02-16-2022 Epithelial cells.squamous LM Ql (Urine sed) 5-9 [HPF] 0-2 [facility] Urine Cultureon 02-16-2022 Urine Culture >100,000 Relive Other Urine Culture <16 Susceptible Dress Code Other Urine Culture <8/4 Susceptible Dress Code Other Urine Culture <4 Susceptible Dress Code Other Urine Culture <2 Susceptible Dress Code Other Urine Culture <1 Susceptible Dress Code Other Urine Culture <0.25 Susceptible Dress Code Other Urine Culture <0.5 Susceptible Dress Code Other Urine Culture <32 Susceptible Dress Code Other Urine Culture <0.5/9.5 Susceptible Dress Code Other Urine bacteria detection by automated methodOrdered By: Gypsy Mcmahon on 02-16-2022 Bacteria Auto Ql (U) 2+ None Seen [facility] Urine clarity by refractomet ry automatedOrdered By: Gypsy Mcmahon on 02-16-2022 Clarity Refractometry automated (U) Cloudy Clear [facility] Urine culture routineOrdered By: Gypsy Mcmahon on 02-16-2022 Bacteria identified Cx Nom (U) Klebsiella variicola [facility] Urine glucose measurement by automated test strip (mass/volume)Ordered By: Gypsy Mcmahon on 02-16-2022 Glucose Auto test strip (U) [Mass/Vol] Normal mg/dL Normal [facility] Urine hemoglobin detection b y automated test stripOrdered By: Gypsy Mcmahon on 02-16-2022 Hemoglobin Auto test strip Ql (U) Negative Negative [facility] Urine leukocyte esterase det ection by automated test stripOrdered By: yGpsy Mcmahon on 02-16-2022 Leukocyte esterase Auto test strip Ql (U) 2+ Negative [facility] Urobilinogen Auto test strip (U) [Mass/Vol]Ordered By: Gypsy Mcmahon on 02-16-2022 Urobilinogen (U) [Mass/Vol] Normal mg/dL Normal [facility] pH Auto test strip (U)Ordere d By: Gypsy Mcmahon on 02-16-2022 pH (U) 5.5 [pH] 5.0-9.0 [facility] CBC AUTO DIFFon 01-15-2022 BASO # 0.0 103/ul Normal 0.0-0.1 [facility] Comment on above: Performed By: #### C BC #### [facility] [address] [address] [address] Anthony Bonilla Basophils/100 WBC (Bld) 0.5 % Normal 0.2-2.0 [facility] Comment on above: Performed By: #### C BC #### [facility] [address] [place] [address] Dr. Anthony Bonilla EO # 0.1 103/ul Normal 0.0-0.7 [facility] Comment on above: Performed By: #### C BC #### [facility] [address] [place] [address] Dr. Anthony Bonilla Eosinophils/100 WBC (Bld) 0.9 % Normal 0.9-7.0 [facility] Comment on above: Performed By: #### C BC #### [facility] [address] [place] [address] Dr. Anthony Bonilla Erythrocyte distribution width (RBC) [Ratio] 14.8 % Normal 11.0-15.0 [facility] Comment on above: Performed By: #### C BC #### [facility] [address] [place] [address] Dr. Anthony Bonilla Hematocrit (Bld) [Volume fraction] 30.3 % Critically low 36.0-48.0 [facility] Comment on above: Performed By: #### C BC #### [facility] [address] [place] [address] Dr. Anthony Bonilla Hemoglobin (Bld) [Mass/Vol] 9.8 g/dL Critically low 12.0-16.0 [facility] Comment on above: Performed By: #### C BC #### [facility] [address] [place] [address] Dr. Anthony Bonilla IG # 0.03 10e3/ul Normal 0.00-0.03 [facility] Comment on above: Performed By: #### C BC #### [facility] [address] [place] [address] Dr. Anthony Bonilla IG % 0.3 % Normal 0.0-0.5 [facility] Comment on above: Performed By: #### C BC #### [facility] [address] [place] [address] Dr. Anthony Bonilla LYMPH # 1.4 103/ul Normal 1.2-3.8 [facility] Comment on above: Performed By: #### C BC #### [facility] [address] [place] [address] Dr. Anthony Bonilla Lymphocytes/100 WBC (Bld) 15.7 % Critically low 20.5-60.0 [facility] Comment on above: Performed By: #### C BC #### [facility] [address] [place] [address] Dr. Anthony Bonilla MANUAL DIFF REQ NO Normal [facility] Comment on above: Performed By: #### C BC #### [facility] [address] [place] [address] Dr. Anthony Bonilla MCH (RBC) [Entitic mass] 30.0 pg Normal 26.7-34.0 [facility] Comment on above: Performed By: #### C BC #### [facility] [address] [place] [address] Dr. Anthony Bonilla MCHC (RBC) [Mass/Vol] 32.3 g/dL Normal 29.9-35.2 [facility] Comment on above: Performed By: #### C BC #### [facility] [address] [place] [address] Dr. Anthony Bonilla MCV (RBC) [Entitic vol] 92.7 fL Normal 81.0-99.0 [facility] Comment on above: Performed By: #### C BC #### [facility] [address] [place] [address] Dr. Anthony Bonilla MONO # 1.1 103/ul Critically high 0.3-0.8 [facility] Comment on above: Performed By: #### C BC #### [facility] [address] [place] [address] Dr. Anthony Bonilla Monocytes/100 WBC (Bld) 12.0 % Normal 1.7-12.0 [facility] Comment on above: Performed By: #### C BC #### [facility] [address] [place] [address] Dr. Anthony Bonilla NEUT # 6.2 103/ul Normal 1.4-6.5 [facility] Comment on above: Performed By: #### C BC #### [facility] [address] [place] [address] Dr. Anthony Bonilla Neutrophils/100 WBC (Bld) 70.6 % Normal 43.0-75.0 [facility] Comment on above: Performed By: #### C BC #### [facility] [address] [place] [address] Dr. Anthony Bonilla Platelet mean volume (Bld) [Entitic vol] 9.8 fL Normal 9.5-13.5 [facility] Comment on above: Performed By: #### C BC #### [facility] [address] [place] [address] Dr. Anthony Bonilla PLT 305 103/ul Normal 150-450 [facility] Comment on above: Performed By: #### C BC #### [facility] [address] [place] [address] Dr. Anthony Bonilla RBC 3.27 106/ul Critically low 4.20-5.40 [facility] Comment on above: Performed By: #### C BC #### [facility] [address] [place] [address] Dr. Anthony Bonilla WBC 8.7 103/ul Normal 4.0-11.0 [facility] Comment on above: Performed By: #### C BC #### [facility] [address] [place] [address] Dr. Anthony Bonilla PROF CHEM 8 (BAS METB)on Anion gap [Moles/Vol] 12.2 mmol/L Normal [facility] Comment on above: Performed By: #### U RCX #### [facility] [address] [place] [address] Dr. Anthony Bonilla Calcium [Mass/Vol] 9.1 mg/dL Normal 8.5-10.1 [facility] Comment on above: Performed By: #### U RCX #### [facility] [address] [place] [address] Dr. Anthony Bonilla Chloride [Moles/Vol] 104 mmol/L Normal 98-107 [facility] Comment on above: Performed By: #### U RCX #### [facility] [address] [place] [address] Dr. Anthony Bonilla CO2 [Moles/Vol] 24.4 mmol/L Normal 21.0-32.0 [facility] Comment on above: Performed By: #### U RCX #### [facility] [address] [address] [address] Anthony Bonilla Creatinine [Mass/Vol] 1.20 mg/dL Critically high 0.55-1.02 [facility] Comment on above: Performed By: #### U RCX #### [facility] [address] [address] [address] Anthony Bonilla EGFR-AF S[place]TH AFR[place] 52 mL/min/1.73m2 Critically low >=60 [facility] Comment on above: Performed By: #### U RCX #### [facility] [address] [address] [address] Anthony Bonilla EGFR-NON AF [place] 43 mL/min/1.73m2 Critically low >=60 [facility] Comment on above: Performed By: #### U RCX #### [facility] [address] [address] [address] Anthony Bonilla Glucose [Mass/Vol] 81 mg/dL Normal 74-106 [facility] Comment on above: Performed By: #### U RCX #### [facility] [address] [address] [address] Anthony Bonilla Potassium [Moles/Vol] 3.6 mmol/L Normal 3.5-5.1 [facility] Comment on above: Performed By: #### U RCX #### [facility] [address] [address] [address] Anthony Bonilla Sodium [Moles/Vol] 137 mmol/L Normal 136-145 [facility] Comment on above: Performed By: #### U RCX #### [facility] [address] [address] [address] Anthony Bonilla Urea nitrogen [Mass/Vol] 21.0 mg/dL Critically high 7.0-18.0 [facility] Comment on above: Performed By: #### U RCX #### [facility] [address] [address] [address] Anthony Bonilla Urea nitrogen/Creatinine [Mass ratio] 17.5 mg/mg Normal [facility] Comment on above: Performed By: #### U RCX #### [facility] [address] [place] [address] Dr. Anthony Bonilla CULTURE URINEon 12-29-2021 CULTURE [...] Trimethoprim/Sulfamethoxa zole <=20 S F Normal [facility] Comment on above: Performed By: #### U RCX #### [facility] [address] [place] [address] Dr. Anthony Bonilla ER URINE PROFILEon 2 Bilirubin Ql (U) SMALL Abnormal NEGATIVE [facility] Comment on above: Performed By: #### C BC #### [facility] [address] [place] [address] Dr. Anthony Bonilla Clarity (U) SL CLOUDY Abnormal CLEAR [facility] Comment on above: Performed By: #### C BC #### [facility] [address] [place] [address] Dr. Anthony Bonilla Color (U) YELLOW Normal YELLOW [facility] Comment on above: Performed By: #### C BC #### [facility] [address] [place] [address] Dr. Anthony BANGURA A micrscopic examina tion will be performed if indicated. Normal [facility] Comment on above: Performed By: #### C BC #### [facility] [address] [place] [address] Dr. Anthony Bonilla Glucose Ql (U) Negative Normal NEGATIVE [facility] Comment on above: Performed By: #### C BC #### [facility] [address] [place] [address] Dr. Anthony Bonilla Hemoglobin Ql (U) Negative Normal NEGATIVE [facility] Comment on above: Performed By: #### C BC #### [facility] [address] [place] [address] Dr. Anthony Bonilla Ketones Ql (U) TRACE Abnormal NEGATIVE [facility] Comment on above: Performed By: #### C BC #### [facility] [address] [place] [address] Dr. Anthony Bonilla LEUKOCYTES MODERATE Abnormal NEGATIVE [facility] Comment on above: Performed By: #### C BC #### [facility] [address] [place] [address] Dr. Anthony Bonilla Nitrite Ql (U) Positive Abnormal NEGATIVE [facility] Comment on above: Performed By: #### C BC #### [facility] [address] [place] [address] Dr. Anthony Bonilla pH (U) 7.5 [pH] Normal 5-9 [facility] Comment on above: Performed By: #### C BC #### [facility] [address] [place] [address] Dr. Anthony Bonilla Protein (U) [Mass/Vol] 30 mg/dL Abnormal NEGAT JAMAR/ TRACE [facility] Comment on above: Performed By: #### C BC #### [facility] [address] [place] [address] Dr. Anthony Bonilla SPEC GRAVITY 1.020 Normal 1.005-<=1. 025 [facility] Comment on above: Performed By: #### C BC #### [facility] [address] [place] [address] Dr. Anthony Bonilla UR MICRO IND INDICATED Normal [facility] Comment on above: Performed By: #### C BC #### [facility] [address] [place] [address] Dr. Anthony Bonilla Urobilinogen Qn (U) 0.2 {Gen'U}/dL Normal 0.2 - 1. 0 [facility] Comment on above: Performed By: #### C BC #### [facility] [address] [place] [address] Dr. Anthony Bonilla URINE MICROSCOPIC ONLYon BACTERIA TRACE Abnormal NONE SEEN [facility] Comment on above: Performed By: #### C BC #### [facility] [address] [place] [address] Dr. Anthony Bonilla Bacteria identified Cx Nom (U) INDICATED Normal [facility] Comment on above: Performed By: #### C BC #### [facility] [address] [place] [address] Dr. Anthony Bonilla CAST NONE SEEN Normal NONE SEEN [facility] Comment on above: Performed By: #### C BC #### [facility] [address] [place] [address] Dr. Anthony Bonilla Crystals LM Nom (Urine sed) NONE SEEN Normal NONE SEEN [facility] Comment on above: Performed By: #### C BC #### [facility] [address] [place] [address] Dr. Anthony Bonilla Epithelial cells LM Ql (Urine sed) FEW Abnormal NONE SEEN /RARE [facility] Comment on above: Performed By: #### C BC #### [facility] [address] [place] [address] Dr. Anthony Bonilla MUCOUS NONE SEEN Normal NONE SEEN [facility] Comment on above: Performed By: #### C BC #### [facility] [address] [place] [address] Dr. Anthony Bonilla RBC 0-2 Normal 0-2 [facility] Comment on above: Performed By: #### C BC #### [facility] [address] [place] [address] Dr. Anthony Bonilla WBC 5-10 Abnormal NONE SEEN [facility] Comment on above: Performed By: #### C BC #### [facility] [address] [place] [address] Dr. Anthony Bonilla PRBC LEUKOREDUCEDon 11-20-19 PRBC LEUKOREDUCED Cross Match Result Compatible Unit Blood Type A Pos Unit Number [id number] Status Information Transfused Product ID Red Blood Cells Product Code [id number] Normal [facility] Comment on above: Performed By: #### P RBC #### [facility] [address] [place] [address] Dr. Anthony Bonilla CBC AUTO DIFFon 11-10-2021 BASO # 0.0 103/ul Normal 0.0-0.1 [facility] Comment on above: Performed By: #### C BC #### [facility] [address] [place] [address] Dr. Anthony Bonilla Basophils/100 WBC (Bld) 0.7 % Normal 0.2-2.0 [facility] Comment on above: Performed By: #### C BC #### [facility] [address] [place] [address] Dr. Anthony Bonilla EO # 0.2 103/ul Normal 0.0-0.7 [facility] Comment on above: Performed By: #### C BC #### [facility] [address] [place] [address] Dr. Anthony Bonilla Eosinophils/100 WBC (Bld) 2.7 % Normal 0.9-7.0 [facility] Comment on above: Performed By: #### C BC #### [facility] [address] [place] [address] Dr. Anthony Bonilla Erythrocyte distribution width (RBC) [Ratio] 16.3 % Critically high 11.0-15.0 [facility] Comment on above: Performed By: #### C BC #### [facility] [address] [place] [address] Dr. Anthony Bonilla Hematocrit (Bld) [Volume fraction] 29.0 % Critically low 36.0-48.0 [facility] Comment on above: Performed By: #### C BC #### [facility] [address] [place] [address] Dr. Anthony Bonilla Hemoglobin (Bld) [Mass/Vol] 9.4 g/dL Critically low 12.0-16.0 [facility] Comment on above: Performed By: #### C BC #### [facility] [address] [place] [address] Dr. Anthony Bonilla IG # 0.04 10e3/ul Critically high 0.00-0.03 [facility] Comment on above: Performed By: #### C BC #### [facility] [address] [place] [address] Dr. Anthony Bonilla IG % 0.7 % Critically high 0.0-0.5 [facility] Comment on above: Performed By: #### C BC #### [facility] [address] [place] [address] Dr. Anthony Bonilla LYMPH # 1.2 103/ul Normal 1.2-3.8 [facility] Comment on above: Performed By: #### C BC #### [facility] [address] [place] [address] Dr. Anthony Bonilla Lymphocytes/100 WBC (Bld) 21.5 % Normal 20.5-60.0 [facility] Comment on above: Performed By: #### C BC #### [facility] [address] [place] [address] Dr. Anthony Bonilla MANUAL DIFF REQ NO Normal [facility] Comment on above: Performed By: #### C BC #### [facility] [address] [place] [address] Dr. Anthony Bonilla MCH (RBC) [Entitic mass] 32.3 pg Normal 26.7-34.0 [facility] Comment on above: Performed By: #### C BC #### [facility] [address] [place] [address] Dr. Anthony Bonilla MCHC (RBC) [Mass/Vol] 32.4 g/dL Normal 29.9-35.2 [facility] Comment on above: Performed By: #### C BC #### [facility] [address] [place] [address] Dr. Anthony Bonilla MCV (RBC) [Entitic vol] 99.7 fL Critically high 81.0-99.0 [facility] Comment on above: Performed By: #### C BC #### [facility] [address] [place] [address] Dr. Anthony Bonilla MONO # 0.7 103/ul Normal 0.3-0.8 [facility] Comment on above: Performed By: #### C BC #### [facility] [address] [place] [address] Dr. Anthony Bonilla Monocytes/100 WBC (Bld) 12.6 % Critically high 1.7-12.0 [facility] Comment on above: Performed By: #### C BC #### [facility] [address] [place] [address] Dr. Anthony Bonilla NEUT # 3.4 103/ul Normal 1.4-6.5 [facility] Comment on above: Performed By: #### C BC #### [facility] [address] [place] [address] Dr. Anthony Bonilla Neutrophils/100 WBC (Bld) 61.8 % Normal 43.0-75.0 [facility] Comment on above: Performed By: #### C BC #### [facility] [address] [place] [address] Dr. Anthony Bonilla Platelet mean volume (Bld) [Entitic vol] 9.0 fL Critically low 9.5-13.5 [facility] Comment on above: Performed By: #### C BC #### [facility] [address] [place] [address] Dr. Anthony Bonilla PLT 429 103/ul Normal 150-450 [facility] Comment on above: Performed By: #### C BC #### [facility] [address] [place] [address] Dr. Anthony Bonilla RBC 2.91 106/ul Critically low 4.20-5.40 [facility] Comment on above: Performed By: #### C BC #### [facility] [address] [place] [address] Dr. Anthony Bonilla WBC 5.5 103/ul Normal 4.0-11.0 [facility] Comment on above: Performed By: #### C BC #### [facility] [address] [place] [address] Dr. Anthony Bonilla PROF CHEM 8 (BAS METB)on Anion gap [Moles/Vol] 11.0 mmol/L Normal [facility] Comment on above: Performed By: #### B MP #### [facility] [address] [place] [address] Dr. Anthony Bonilla Calcium [Mass/Vol] 9.2 mg/dL Normal 8.5-10.1 [facility] Comment on above: Performed By: #### B MP #### [facility] [address] [place] [address] Dr. Anthony Bonilla Chloride [Moles/Vol] 107 mmol/L Normal 98-107 [facility] Comment on above: Performed By: #### B MP #### [facility] [address] [place] [address] Dr. Anthony Bonilla CO2 [Moles/Vol] 27.4 mmol/L Normal 21.0-32.0 [facility] Comment on above: Performed By: #### B MP #### [facility] [address] [place] [address] Dr. Anthony Bonilla Creatinine [Mass/Vol] 1.12 mg/dL Critically high 0.55-1.02 [facility] Comment on above: Performed By: #### B MP #### [facility] [address] [place] [address] Dr. Anthony Bonilla EGFR-AF S[place]FR[place] 56 mL/min/1.73m2 Critically low >=60 [facility] Comment on above: Performed By: #### B MP #### [facility] [address] [place] [address] Dr. Anthony Bonilla EGFR-NON AF [place] 46 mL/min/1.73m2 Critically low >=60 [facility] Comment on above: Performed By: #### B MP #### [facility] [address] [place] [address] Dr. Anthony Bonilla Glucose [Mass/Vol] 89 mg/dL Normal 74-106 [facility] Comment on above: Performed By: #### B MP #### [facility] [address] [place] [address] Dr. Anthony Bonilla Potassium [Moles/Vol] 4.4 mmol/L Normal 3.5-5.1 [facility] Comment on above: Performed By: #### B MP #### [facility] [address] [place] [address] Dr. Anthony Bonilla Sodium [Moles/Vol] 141 mmol/L Normal 136-145 [facility] Comment on above: Performed By: #### B MP #### [facility] [address] [place] [address] Dr. Anthony Bonilla Urea nitrogen [Mass/Vol] 18.0 mg/dL Normal 7.0-18.0 [facility] Comment on above: Performed By: #### B MP #### [facility] [address] [place] [address] Dr. Anthony Bonilla Urea nitrogen/Creatinine [Mass ratio] 16.1 mg/mg Normal [facility] Comment on above: Performed By: #### B MP #### [facility] [address] [place] [address] Dr. Anthony Bonilla CBC AUTO DIFFon 11-04-2021 BASO # 0.0 103/ul Normal 0.0-0.1 [facility] Comment on above: Performed By: #### C BC #### [facility] [address] [place] [address] Dr. Anthony Bonilla Basophils/100 WBC (Bld) 0.2 % Normal 0.2-2.0 [facility] Comment on above: Performed By: #### C BC #### [facility] [address] [place] [address] Dr. Anthony Bonilla EO # 0.1 103/ul Normal 0.0-0.7 [facility] Comment on above: Performed By: #### C BC #### [facility] [address] [place] [address] Dr. Anthony Bonilla Eosinophils/100 WBC (Bld) 0.8 % Critically low 0.9-7.0 [facility] Comment on above: Performed By: #### C BC #### [facility] [address] [place] [address] Dr. Anthony Bonilla Erythrocyte distribution width (RBC) [Ratio] 16.7 % Critically high 11.0-15.0 [facility] Comment on above: Performed By: #### C BC #### [facility] [address] [place] [address] Dr. Anthony Bonilla Hematocrit (Bld) [Volume fraction] 25.6 % Critically low 36.0-48.0 [facility] Comment on above: Performed By: #### C BC #### [facility] [address] [place] [address] Dr. Anthony Bonilla Hemoglobin (Bld) [Mass/Vol] 8.5 g/dL Critically low 12.0-16.0 [facility] Comment on above: Performed By: #### C BC #### [facility] [address] [place] [address] Dr. Anthony Bonilla IG # 0.05 10e3/ul Critically high 0.00-0.03 [facility] Comment on above: Performed By: #### C BC #### [facility] [address] [place] [address] Dr. Anthony Bonilla IG % 0.5 % Normal 0.0-0.5 [facility] Comment on above: Performed By: #### C BC #### [facility] [address] [place] [address] Dr. Anthony Bonilla LYMPH # 0.6 103/ul Critically low 1.2-3.8 [facility] Comment on above: Performed By: #### C BC #### [facility] [address] [place] [address] Dr. Anthony Bonilla Lymphocytes/100 WBC (Bld) 6.2 % Critically low 20.5-60.0 [facility] Comment on above: Performed By: #### C BC #### [facility] [address] [place] [address] Dr. Anthony Bonilla MANUAL DIFF REQ NO Normal [facility] Comment on above: Performed By: #### C BC #### [facility] [address] [place] [address] Dr. Anthony Bonilla MCH (RBC) [Entitic mass] 31.6 pg Normal 26.7-34.0 [facility] Comment on above: Performed By: #### C BC #### [facility] [address] [place] [address] Dr. Anthony Bonlila MCHC (RBC) [Mass/Vol] 33.2 g/dL Normal 29.9-35.2 [facility] Comment on above: Performed By: #### C BC #### [facility] [address] [place] [address] Dr. Anthony Bonilla MCV (RBC) [Entitic vol] 95.2 fL Normal 81.0-99.0 [facility] Comment on above: Performed By: #### C BC #### [facility] [address] [place] [address] Dr. Anthony Bonilla MONO # 0.6 103/ul Normal 0.3-0.8 [facility] Comment on above: Performed By: #### C BC #### [facility] [address] [place] [address] Dr. Anthony Bonilla Monocytes/100 WBC (Bld) 6.1 % Normal 1.7-12.0 [facility] Comment on above: Performed By: #### C BC #### [facility] [address] [place] [address] Dr. Anthony Bonilla NEUT # 8.8 103/ul Critically high 1.4-6.5 [facility] Comment on above: Performed By: #### C BC #### [facility] [address] [place] [address] Dr. Anthony Bonilla Neutrophils/100 WBC (Bld) 86.2 % Critically high 43.0-75.0 [facility] Comment on above: Performed By: #### C BC #### [facility] [address] [place] [address] Dr. Anthony Bonilla Platelet mean volume (Bld) [Entitic vol] 9.8 fL Normal 9.5-13.5 [facility] Comment on above: Performed By: #### C BC #### [facility] [address] [place] [address] Dr. Anthony Bonilla PLT 156 103/ul Normal 150-450 [facility] Comment on above: Performed By: #### C BC #### [facility] [address] [place] [address] Dr. Anthony Bonilla RBC 2.69 106/ul Critically low 4.20-5.40 [facility] Comment on above: Performed By: #### C BC #### [facility] [address] [place] [address] Dr. Anthony Bonilla WBC 10.3 103/ul Normal 4.0-11.0 [facility] Comment on above: Performed By: #### C BC #### [facility] [address] [place] [address] Dr. Anthony Bonilla CULTURE URINEon 11-04-2021 CULTURE [...] F Trimethoprim/Sulfamethoxa zole <=20 S F Normal [facility] Comment on above: Performed By: #### U RCX #### [facility] [address] [place] [address] Dr. Anthony Bonilla PROF CHEM 8 (BAS METB)on Anion gap [Moles/Vol] 12.9 mmol/L Normal [facility] Comment on above: Performed By: #### U RCX #### [facility] [address] [address] [address] Anthony Bonilla Calcium [Mass/Vol] 8.6 mg/dL Normal 8.5-10.1 [facility] Comment on above: Performed By: #### U RCX #### [facility] [address] [address] [address] Anthony Bonilla Chloride [Moles/Vol] 108 mmol/L Critically high 98-107 [facility] Comment on above: Performed By: #### U RCX #### [facility] [address] [place] [address] Dr. Anthony Bonilla CO2 [Moles/Vol] 23.1 mmol/L Normal 21.0-32.0 [facility] Comment on above: Performed By: #### U RCX #### [facility] [address] [address] [address] Anthony Bonilla Creatinine [Mass/Vol] 0.98 mg/dL Normal 0.55-1.02 [facility] Comment on above: Performed By: #### U RCX #### [facility] [address] [place] [address] Dr. Anthony Bonilla EGFR-AF [place] >60 Normal >=60 [facility] Comment on above: Performed By: #### U RCX #### [facility] [address] [address] [address] Anthony Bonilla EGFR-NON AF [place] 54 mL/min/1.73m2 Critically low >=60 [facility] Comment on above: Performed By: #### U RCX #### [facility] [address] [address] [address] Anthony Bonilla Glucose [Mass/Vol] 86 mg/dL Normal 74-106 [facility] Comment on above: Performed By: #### U RCX #### [facility] [address] [place] [address] Dr. Anthony Bonilla Potassium [Moles/Vol] 4.0 mmol/L Normal 3.5-5.1 [facility] Comment on above: Performed By: #### U RCX #### [facility] [address] [place] [address] Dr. Anthony Bonilla Sodium [Moles/Vol] 140 mmol/L Normal 136-145 [facility] Comment on above: Performed By: #### U RCX #### [facility] [address] [place] [address] Dr. Anthony Bonilla Urea nitrogen [Mass/Vol] 31.0 mg/dL Critically high 7.0-18.0 [facility] Comment on above: Performed By: #### U RCX #### [facility] [address] [place] [address] Dr. Anthony Bonilla Urea nitrogen/Creatinine [Mass ratio] 31.6 mg/mg Normal [facility] Comment on above: Performed By: #### U RCX #### [facility] [address] [place] [address] Dr. Anthony Bonilla CBC AUTO DIFFon 11-03-2021 BASO # 0.0 103/ul Normal 0.0-0.1 [facility] Comment on above: Performed By: #### C BC #### [facility] [address] [place] [address] Dr. Anthony Bonilla Basophils/100 WBC (Bld) 0.3 % Normal 0.2-2.0 [facility] Comment on above: Performed By: #### C BC #### [facility] [address] [place] [address] Dr. Anthony Bonilla EO # 0.1 103/ul Normal 0.0-0.7 [facility] Comment on above: Performed By: #### C BC #### [facility] [address] [place] [address] Dr. Anthony Bonilla Eosinophils/100 WBC (Bld) 0.6 % Critically low 0.9-7.0 [facility] Comment on above: Performed By: #### C BC #### [facility] [address] [place] [address] Dr. Anthony Bonilla Erythrocyte distribution width (RBC) [Ratio] 14.0 % Normal 11.0-15.0 [facility] Comment on above: Performed By: #### C BC #### [facility] [address] [place] [address] Dr. Anthony Bonilla Hematocrit (Bld) [Volume fraction] 23.1 % Critically low 36.0-48.0 [facility] Comment on above: Result Comment: Flui ds given Performed By: #### C BC #### [facility] [address] [place] [address] Dr. Anthony Bonilla Hemoglobin (Bld) [Mass/Vol] 7.6 g/dL Critically low 12.0-16.0 [facility] Comment on above: Performed By: #### C BC #### [facility] [address] [place] [address] Dr. Anthony Bonilla IG # 0.07 10e3/ul Critically high 0.00-0.03 [facility] Comment on above: Performed By: #### C BC #### [facility] [address] [place] [address] Dr. Anthony Bonilla IG % 0.6 % Critically high 0.0-0.5 [facility] Comment on above: Performed By: #### C BC #### [facility] [address] [place] [address] Dr. Anthony Bonilla LYMPH # 0.7 103/ul Critically low 1.2-3.8 [facility] Comment on above: Performed By: #### C BC #### [facility] [address] [place] [address] Dr. Anthony Bonilla Lymphocytes/100 WBC (Bld) 5.7 % Critically low 20.5-60.0 [facility] Comment on above: Performed By: #### C BC #### [facility] [address] [place] [address] Dr. Anthony Bonilla MANUAL DIFF REQ NO Normal [facility] Comment on above: Performed By: #### C BC #### [facility] [address] [place] [address] Dr. Anthony Bonilla MCH (RBC) [Entitic mass] 32.6 pg Normal 26.7-34.0 [facility] Comment on above: Performed By: #### C BC #### [facility] [address] [address] [address] Anthony Bonilla MCHC (RBC) [Mass/Vol] 32.9 g/dL Normal 29.9-35.2 [facility] Comment on above: Performed By: #### C BC #### [facility] [address] [address] [address] Anthony Bonilla MCV (RBC) [Entitic vol] 99.1 fL Critically high 81.0-99.0 [facility] Comment on above: Performed By: #### C BC #### [facility] [address] [place] [address] Dr. Anthony Bonilla MONO # 0.8 103/ul Normal 0.3-0.8 [facility] Comment on above: Performed By: #### C BC #### [facility] [address] [place] [address] Dr. Anthony Bonilla Monocytes/100 WBC (Bld) 6.8 % Normal 1.7-12.0 [facility] Comment on above: Performed By: #### C BC #### [facility] [address] [place] [address] Dr. Anthony Bonilla NEUT # 9.8 103/ul Critically high 1.4-6.5 [facility] Comment on above: Performed By: #### C BC #### [facility] [address] [place] [address] Dr. Anthony Bonilla Neutrophils/100 WBC (Bld) 86.0 % Critically high 43.0-75.0 [facility] Comment on above: Performed By: #### C BC #### [facility] [address] [address] [address] Anthony Bonilla Platelet mean volume (Bld) [Entitic vol] 9.5 fL Normal 9.5-13.5 [facility] Comment on above: Performed By: #### C BC #### [facility] [address] [place] [address] Dr. Anthony Bonilla PLT 160 103/ul Normal 150-450 [facility] Comment on above: Performed By: #### C BC #### [facility] [address] [place] [address] Dr. Anthony Bonilla RBC 2.33 106/ul Critically low 4.20-5.40 [facility] Comment on above: Performed By: #### C BC #### [facility] [address] [address] [address] Anthony Bonilla WBC 11.4 103/ul Critically high 4.0-11.0 [facility] Comment on above: Performed By: #### C BC #### [facility] [address] [place] [address] Dr. Anthony Bonilla HEMOGLOBIN AND HEMATOCRITon 11-03-2021 Hematocrit (Bld) [Volume fraction] 27.0 % Critically low 36.0-48.0 [facility] Comment on above: Performed By: #### U RCX #### [facility] [address] [place] [address] Dr. Anthony Bonilla Hemoglobin (Bld) [Mass/Vol] 9.1 g/dL Critically low 12.0-16.0 [facility] Comment on above: Performed By: #### U RCX #### [facility] [address] [place] [address] Dr. Anthony Bonilla OCC BLD IMMUNO SCREENon 10-10 OCCULT BLOOD Positive Abnormal NEGATIVE [facility] Comment on above: Performed By: #### C BC #### [facility] [address] [place] [address] Dr. Anthony Bonilla PROF CHEM 8 (BAS METB)on Anion gap [Moles/Vol] 10.7 mmol/L Normal [facility] Comment on above: Performed By: #### C BC #### [facility] [address] [place] [address] Dr. Anthony Bonilla Calcium [Mass/Vol] 8.6 mg/dL Normal 8.5-10.1 [facility] Comment on above: Performed By: #### C BC #### [facility] [address] [address] [address] Anthony Bonilla Chloride [Moles/Vol] 107 mmol/L Normal 98-107 [facility] Comment on above: Performed By: #### C BC #### [facility] [address] [address] [address] Anthony Bonilla CO2 [Moles/Vol] 24.4 mmol/L Normal 21.0-32.0 [facility] Comment on above: Performed By: #### C BC #### [facility] [address] [address] [address] Anthony Bonilla Creatinine [Mass/Vol] 0.98 mg/dL Normal 0.55-1.02 [facility] Comment on above: Performed By: #### C BC #### [facility] [address] [place] [address] Dr. Anthony Bonilla EGFR-AF [place] >60 Normal >=60 [facility] Comment on above: Performed By: #### C BC #### [facility] [address] [place] [address] Dr. Anthony Bonilla EGFR-NON AF [place] 54 mL/min/1.73m2 Critically low >=60 [facility] Comment on above: Performed By: #### C BC #### [facility] [address] [place] [address] Dr. Antohny Bonilla Glucose [Mass/Vol] 98 mg/dL Normal 74-106 [facility] Comment on above: Performed By: #### C BC #### [facility] [address] [place] [address] Dr. Anthony Bonilla Potassium [Moles/Vol] 4.1 mmol/L Normal 3.5-5.1 [facility] Comment on above: Performed By: #### C BC #### [facility] [address] [place] [address] Dr. Anthony Bonilla Sodium [Moles/Vol] 138 mmol/L Normal 136-145 [facility] Comment on above: Performed By: #### C BC #### [facility] [address] [place] [address] Dr. Anthony Bonilla Urea nitrogen [Mass/Vol] 43.0 mg/dL Critically high 7.0-18.0 [facility] Comment on above: Performed By: #### C BC #### [facility] [address] [place] [address] Dr. Anthony Bonilla Urea nitrogen/Creatinine [Mass ratio] 43.9 mg/mg Normal [facility] Comment on above: Performed By: #### C BC #### [facility] [address] [place] [address] Dr. Anthony Bonilla TYPE AND SCREENon 11-03-2021 TYPE AND SCREEN Negative Normal [facility] Comment on above: Performed By: #### C BC #### [facility] [address] [place] [address] Dr. Anthony Bonilla CBC AUTO DIFFon 11-02-2021 BASO # 0.0 103/ul Normal 0.0-0.1 [facility] Comment on above: Performed By: #### U RCX #### [facility] [address] [place] [address] Dr. Anthony Bonilla Basophils/100 WBC (Bld) 0.3 % Normal 0.2-2.0 [facility] Comment on above: Performed By: #### U RCX #### [facility] [address] [place] [address] Dr. Anthony Bonilla EO # 0.0 103/ul Normal 0.0-0.7 [facility] Comment on above: Performed By: #### U RCX #### [facility] [address] [place] [address] Dr. Anthony Bonilla Eosinophils/100 WBC (Bld) 0.1 % Critically low 0.9-7.0 [facility] Comment on above: Performed By: #### U RCX #### [facility] [address] [place] [address] Dr. Anthony Bonilla Erythrocyte distribution width (RBC) [Ratio] 13.9 % Normal 11.0-15.0 [facility] Comment on above: Performed By: #### U RCX #### [facility] [address] [address] [address] Anthony Bonilla Hematocrit (Bld) [Volume fraction] 31.8 % Critically low 36.0-48.0 [facility] Comment on above: Performed By: #### U RCX #### [facility] [address] [address] [address] Anthony Bonilla Hemoglobin (Bld) [Mass/Vol] 10.5 g/dL Critically low 12.0-16.0 [facility] Comment on above: Performed By: #### U RCX #### [facility] [address] [address] [address] Anthony Bonilla IG # 0.07 10e3/ul Critically high 0.00-0.03 [facility] Comment on above: Performed By: #### U RCX #### [facility] [address] [place] [address] Dr. Anthony Bonilla IG % 0.5 % Normal 0.0-0.5 [facility] Comment on above: Performed By: #### U RCX #### [facility] [address] [address] [address] Anthony Bonilla LYMPH # 0.9 103/ul Critically low 1.2-3.8 [facility] Comment on above: Performed By: #### U RCX #### [facility] [address] [place] [address] Dr. Anthony Bonilla Lymphocytes/100 WBC (Bld) 6.1 % Critically low 20.5-60.0 [facility] Comment on above: Performed By: #### U RCX #### [facility] [address] [address] [address] Anthony Bonilla MANUAL DIFF REQ NO Normal [facility] Comment on above: Performed By: #### U RCX #### [facility] [address] [address] [address] Anthony Bonilla MCH (RBC) [Entitic mass] 32.7 pg Normal 26.7-34.0 [facility] Comment on above: Performed By: #### U RCX #### [facility] [address] [address] [address] Anthony Bonilla MCHC (RBC) [Mass/Vol] 33.0 g/dL Normal 29.9-35.2 [facility] Comment on above: Performed By: #### U RCX #### [facility] [address] [address] [address] Anthony Bonilla MCV (RBC) [Entitic vol] 99.1 fL Critically high 81.0-99.0 [facility] Comment on above: Performed By: #### U RCX #### [facility] [address] [address] [address] Anthony Bonilla MONO # 1.0 103/ul Critically high 0.3-0.8 [facility] Comment on above: Performed By: #### U RCX #### [facility] [address] [place] [address] Dr. Anthony Bonilla Monocytes/100 WBC (Bld) 6.8 % Normal 1.7-12.0 [facility] Comment on above: Performed By: #### U RCX #### [facility] [address] [address] [address] Anthony Bonilla NEUT # 12.1 103/ul Critically high 1.4-6.5 [facility] Comment on above: Performed By: #### U RCX #### [facility] [address] [address] [address] Anthony Bonilla Neutrophils/100 WBC (Bld) 86.2 % Critically high 43.0-75.0 [facility] Comment on above: Performed By: #### U RCX #### [facility] [address] [address] [address] Anthony Bonilla Platelet mean volume (Bld) [Entitic vol] 9.8 fL Normal 9.5-13.5 [facility] Comment on above: Performed By: #### U RCX #### [facility] [address] [address] [address] Anthony Bonilla PLT 175 103/ul Normal 150-450 [facility] Comment on above: Performed By: #### U RCX #### [facility] [address] [address] [address] Anthony Bonilla RBC 3.21 106/ul Critically low 4.20-5.40 [facility] Comment on above: Performed By: #### U RCX #### [facility] [id number] Anthony Bonilla WBC 14.0 103/ul Critically high 4.0-11.0 [facility] Comment on above: Performed By: #### U RCX #### [facility] [address] [place], [place] [id number] Dr. Anthony Bonilla CT HEAD WO CONon [...] HERNANDO HAMLIN Date: 2021-11-01 22:36 Normal [facility] PROF CHEM 8 (BAS METB)on Anion gap [Moles/Vol] 12.2 mmol/L Normal [facility] Comment on above: Performed By: #### C BC #### [facility] [address] [place] [address] Dr. Anthony Bonilla Calcium [Mass/Vol] 8.7 mg/dL Normal 8.5-10.1 [facility] Comment on above: Performed By: #### C BC #### [facility] [address] [place] [address] Dr. Anthony Bonilla Chloride [Moles/Vol] 103 mmol/L Normal 98-107 [facility] Comment on above: Performed By: #### C BC #### [facility] [address] [address] [address] Anthony Bonilla CO2 [Moles/Vol] 25.7 mmol/L Normal 21.0-32.0 [facility] Comment on above: Performed By: #### C BC #### [facility] [address] [address] [address] Anthony Bonilla Creatinine [Mass/Vol] 1.08 mg/dL Critically high 0.55-1.02 [facility] Comment on above: Performed By: #### C BC #### [facility] [address] [place] [address] Dr. Anthony Bonilla EGFR-AF SOUTH AFRICAN 58 mL/min/1.73m2 Critically low >=60 [facility] Comment on above: Performed By: #### C BC #### [facility] [address] [place] [address] Dr. Anthony Bonilla EGFR-NON AF SOUTH AFRICAN 48 mL/min/1.73m2 Critically low >=60 [facility] Comment on above: Performed By: #### C BC #### [facility] [address] [place] [address] Dr. Anthony Bonilla Glucose [Mass/Vol] 84 mg/dL Normal 74-106 [facility] Comment on above: Performed By: #### C BC #### [facility] [address] [place] [address] Dr. Anthony Bonilla Potassium [Moles/Vol] 4.9 mmol/L Normal 3.5-5.1 [facility] Comment on above: Performed By: #### C BC #### [facility] [address] [address] [address] Anthony Bonilla Sodium [Moles/Vol] 136 mmol/L Normal 136-145 [facility] Comment on above: Performed By: #### C BC #### [facility] [address] [address] [address] Anthony Bonilla Urea nitrogen [Mass/Vol] 33.0 mg/dL Critically high 7.0-18.0 [facility] Comment on above: Performed By: #### C BC #### [facility] [address] [address] [address] Anthony Bonilla Urea nitrogen/Creatinine [Mass ratio] 30.6 mg/mg Normal [facility] Comment on above: Performed By: #### C BC #### [facility] [id number] Anthony Bonilla XR CHEST 1 Von [...] GIANA HOLLY Date: 2021-11-01 22:05 Normal [facility] CARDIAC DARWIN ADMITon 022 CK [Catalytic activity/Vol] 92 U/L Normal 26-192 [facility] Comment on above: Performed By: #### C BC #### [facility] [address] [place] [address] Dr. Anthony Bonilla CK.MB [Mass/Vol] 1.73 ng/mL Normal <=3.60 [facility] Comment on above: Performed By: #### C BC #### [facility] [address] [place] [address] Dr. Anthony Bonilla HSTROP 20.0 pg/mL Normal 4.0-51.3 [facility] Comment on above: Result Comment: CUT- OFF POINTS HAVE BEEN ESTABLISHED BASED ON THE FOURTH UNIVERSAL DEFINITIONS OF MYOCARDIAL INFARCTION. THE UPPER REFERENCE LIMIT (URL) OF TROPONIN, DEFINED THE 99TH PERCENTILE OF cTnI DISTRIBUTION IN A REFERENCE POPULATION, HAS BEEN CONFIRMED THE DECISION THRESHOLD FOR NE DIAGNOSIS. Performed By: #### C BC #### [facility] [address] [place] [address] Dr. Anthony Bonilla CANDIDA 58 ng/mL Normal 9-82 [facility] Comment on above: Performed By: #### C BC #### [facility] [address] [address] [address] Anthony Bonilla CBC AUTO DIFFon 11-01-2021 BASO # 0.0 103/ul Normal 0.0-0.1 [facility] Comment on above: Performed By: #### U RCX #### [facility] [address] [address] [address] Anthony Bonilla Basophils/100 WBC (Bld) 0.2 % Normal 0.2-2.0 [facility] Comment on above: Performed By: #### U RCX #### [facility] [address] [place] [address] Dr. Anthony Bonilla EO # 0.0 103/ul Normal 0.0-0.7 [facility] Comment on above: Performed By: #### U RCX #### [facility] [address] [place] [address] Dr. Anthony Bonilla Eosinophils/100 WBC (Bld) 0.0 % Critically low 0.9-7.0 [facility] Comment on above: Performed By: #### U RCX #### [facility] [address] [place] [address] Dr. Anthony Bonilla Erythrocyte distribution width (RBC) [Ratio] 14.1 % Normal 11.0-15.0 [facility] Comment on above: Performed By: #### U RCX #### [facility] [address] [place] [address] Dr. Anthony Bonilla Hematocrit (Bld) [Volume fraction] 36.0 % Normal 36.0-48.0 [facility] Comment on above: Performed By: #### U RCX #### [facility] [address] [address] [address] Anthony Bonilla Hemoglobin (Bld) [Mass/Vol] 12.1 g/dL Normal 12.0-16.0 [facility] Comment on above: Performed By: #### U RCX #### [facility] [address] [place] [address] Dr. Anthony Bonilla IG # 0.11 10e3/ul Critically high 0.00-0.03 [facility] Comment on above: Performed By: #### U RCX #### [facility] [address] [address] [address] Anthony Bonilla IG % 0.5 % Normal 0.0-0.5 [facility] Comment on above: Performed By: #### U RCX #### [facility] [address] [address] [address] Anthony Bonilla LYMPH # 0.7 103/ul Critically low 1.2-3.8 [facility] Comment on above: Performed By: #### U RCX #### [facility] [address] [address] [address] Anthony Bonilla Lymphocytes/100 WBC (Bld) 3.2 % Critically low 20.5-60.0 [facility] Comment on above: Performed By: #### U RCX #### [facility] [address] [address] [address] Anthony Bonilla MANUAL DIFF REQ NO Normal [facility] Comment on above: Performed By: #### U RCX #### [facility] [address] [address] [address] Anthony Bonilla MCH (RBC) [Entitic mass] 33.0 pg Normal 26.7-34.0 [facility] Comment on above: Performed By: #### U RCX #### [facility] [address] [address] [address] Anthony Bonilla MCHC (RBC) [Mass/Vol] 33.6 g/dL Normal 29.9-35.2 [facility] Comment on above: Performed By: #### U RCX #### [facility] [address] [address] [address] Anthony Bonilla MCV (RBC) [Entitic vol] 98.1 fL Normal 81.0-99.0 [facility] Comment on above: Performed By: #### U RCX #### [facility] [address] [address] [address] Anthony Bonilla MONO # 1.1 103/ul Critically high 0.3-0.8 [facility] Comment on above: Performed By: #### U RCX #### [facility] [address] [place] [address] Dr. Anthony Bonilla Monocytes/100 WBC (Bld) 4.8 % Normal 1.7-12.0 [facility] Comment on above: Performed By: #### U RCX #### [facility] [address] [place] [address] Dr. Anthony Bonilla NEUT # 20.3 103/ul Critically high 1.4-6.5 [facility] Comment on above: Performed By: #### U RCX #### [facility] [address] [place] [address] Dr. Anthony Bonilla Neutrophils/100 WBC (Bld) 91.3 % Critically high 43.0-75.0 [facility] Comment on above: Performed By: #### U RCX #### [facility] [address] [place] [address] Dr. Anthony Bonilla Platelet mean volume (Bld) [Entitic vol] 10.8 fL Normal 9.5-13.5 [facility] Comment on above: Performed By: #### U RCX #### [facility] [address] [place] [address] Dr. Anthony Bonilla PLT 179 103/ul Normal 150-450 [facility] Comment on above: Performed By: #### U RCX #### [facility] [address] [place] [address] Dr. Anthony Bonilla RBC 3.67 106/ul Critically low 4.20-5.40 [facility] Comment on above: Performed By: #### U RCX #### [facility] [address] [place] [address] Dr. Anthony Bonilla WBC 22.2 103/ul Critically high 4.0-11.0 [facility] Comment on above: Performed By: #### U RCX #### [facility] [address] [place] [address] Dr. Anthony Bonilla CULTURE BLOODon 11-01-2021 Microscopic examination of blood, culture Culture Observations: NO GROWTH AT 5 DAYS. Normal [facility] Comment on above: Performed By: #### B [id number] #### [facility] [address] [place] [address] Dr. Anthony Bonilla Performed By: #### C BC #### [facility] [address] [place] [address] Dr. Anthony Bonilla Covid-19 PCR ([facility])on 10-10 SARS-CoV-2 (COVID-19) RNA OH+probe Ql (Unsp spec) Detected Critically abnormal NOT DETECTED [facility] Comment on above: Result Comment: This test is not yet approved or cleared by the [place] FDA. When there are no FDA-approved or cleared tests available, and other criteria are met, FDA can make tests available under an emergency access mechanism called an Emergency Use Authorization (EUA). The EUA for this test is supported by the [employer] of Health and Human Service's declaration that [...] used). Performed By: #### C BC #### [facility] [address] [place] [address] Dr. Anthony Bonilla ER URINE PROFILEon Bilirubin Ql (U) Negative Normal NEGATIVE [facility] Comment on above: Performed By: #### U RCX #### [facility] [address] [place] [address] Dr. Anthony Bonilla Clarity (U) CLEAR Normal CLEAR [facility] Comment on above: Performed By: #### U RCX #### [facility] [address] [place] [address] Dr. Anthony Bonilla Color (U) LT. YELLOW Normal YELLOW [facility] Comment on above: Performed By: #### U RCX #### [facility] [address] [place] [address] Dr. Anthony Bonilla ERUAHD A micrscopic examina tion will be performed if indicated. Normal [facility] Comment on above: Performed By: #### U RCX #### [facility] [address] [place] [address] Dr. Anthony Bonilla Glucose Ql (U) Negative Normal NEGATIVE [facility] Comment on above: Performed By: #### U RCX #### [facility] [address] [place] [address] Dr. Anthony Bonilla Hemoglobin Ql (U) TRACE-INTACT Abnormal NEGATIVE [facility] Comment on above: Performed By: #### U RCX #### [facility] [address] [place] [address] Dr. Anthony Bonilla Ketones Ql (U) Negative Normal NEGATIVE [facility] Comment on above: Performed By: #### U RCX #### [facility] [address] [place] [address] Dr. Anthony Bonilla LEUKOCYTES Negative Normal NEGATIVE [facility] Comment on above: Performed By: #### U RCX #### [facility] [address] [place] [address] Dr. Anthony Bonilla Nitrite Ql (U) Negative Normal NEGATIVE [facility] Comment on above: Performed By: #### U RCX #### [facility] [address] [place] [address] Dr. Anthony Bonilla pH (U) 6.0 [pH] Normal 5-9 [facility] Comment on above: Performed By: #### U RCX #### [facility] [address] [place] [address] Dr. Anthony Bonilla SPEC GRAVITY 1.020 Normal 1.005-<=1. 025 [facility] Comment on above: Performed By: #### U RCX #### [facility] [address] [place] [address] Dr. Anthony Bonilla UA PROTEIN Negative Normal NEGATIVE/ TRACE [facility] Comment on above: Performed By: #### U RCX #### [facility] [address] [place] [address] Dr. Anthony Bonilla UR MICRO IND INDICATED Normal [facility] Comment on above: Performed By: #### U RCX #### [facility] [address] [place] [address] Dr. Anthony Bonilla Urobilinogen Qn (U) 1.0 {Gen'U}/dL Normal 0.2 - 1. 0 [facility] Comment on above: Performed By: #### U RCX #### [facility] [address] [place] [address] Dr. Anthony Bonilla LACTATE/LACTIC ACIDon 2021 Lactate [Moles/Vol] 1.6 mmol/L Normal 0.4-1.9 [facility] Comment on above: Performed By: #### C BC #### [facility] [address] [place] [address] Dr. Anthony Bonilla PROF 14(COMP METB)on 022 Albumin [Mass/Vol] 3.2 g/dL Critically low 3.4-5.0 [facility] Comment on above: Performed By: #### C BC #### [facility] [address] [place] [address] Dr. Anthony Bonilla Albumin/Globulin [Mass ratio] 0.9 {ratio} Normal [facility] Comment on above: Performed By: #### C BC #### [facility] [address] [place] [address] Dr. Anthony Bonilla ALP [Catalytic activity/Vol] 26 U/L Critically low 46-116 [facility] Comment on above: Performed By: #### C BC #### [facility] [address] [place] [address] Dr. Anthony Bonilla ALT [Catalytic activity/Vol] 32 U/L Normal 14-59 [facility] Comment on above: Performed By: #### C BC #### [facility] [address] [place] [address] Dr. Anthony Bonilla Anion gap [Moles/Vol] 11.5 mmol/L Normal [facility] Comment on above: Performed By: #### C BC #### [facility] [address] [place] [address] Dr. Anthony Bonilla AST [Catalytic activity/Vol] 16 U/L Normal 15-37 [facility] Comment on above: Performed By: #### C BC #### [facility] [address] [address] [address] Anthony Bonilla Bilirubin [Mass/Vol] 1.2 mg/dL Critically high 0.2-1.0 [facility] Comment on above: Performed By: #### C BC #### [facility] [address] [address] [address] Anthony Bonilla Calcium [Mass/Vol] 9.0 mg/dL Normal 8.5-10.1 [facility] Comment on above: Performed By: #### C BC #### [facility] [address] [address] [address] Anthony Bonilla Chloride [Moles/Vol] 102 mmol/L Normal 98-107 [facility] Comment on above: Performed By: #### C BC #### [facility] [address] [address] [address] Anthony Bonilla CO2 [Moles/Vol] 25.2 mmol/L Normal 21.0-32.0 [facility] Comment on above: Performed By: #### C BC #### [facility] [address] [address] [address] Anthony Bonilla Creatinine [Mass/Vol] 1.25 mg/dL Critically high 0.55-1.02 [facility] Comment on above: Performed By: #### C BC #### [facility] [address] [address] [address] Anthony Bonilla EGFR-AF SOUTH AFRICAN 49 mL/min/1.73m2 Critically low >=60 [facility] Comment on above: Performed By: #### C BC #### [facility] [address] [address] [address] Anthony Bonilla EGFR-NON AF SOUTH AFR[place] 41 mL/min/1.73m2 Critically low >=60 [facility] Comment on above: Performed By: #### C BC #### [facility] [address] [address] [address] Anthony Bonilla Globulin (S) [Mass/Vol] 3.4 g/dL Normal [facility] Comment on above: Performed By: #### C BC #### [facility] [address] [address] [address] Anthony Bonilla Glucose [Mass/Vol] 102 mg/dL Normal 74-106 [facility] Comment on above: Performed By: #### C BC #### [facility] [address] [address] [address] Anthony Bonilla Potassium [Moles/Vol] 4.7 mmol/L Normal 3.5-5.1 [facility] Comment on above: Performed By: #### C BC #### [facility] [address] [address] [address] Anthony Bonilla Protein [Mass/Vol] 6.6 g/dL Normal 6.4-8.2 [facility] Comment on above: Performed By: #### C BC #### [facility] [address] [address] [address] Anthony Bonilla Sodium [Moles/Vol] 134 mmol/L Critically low 136-145 [facility] Comment on above: Performed By: #### C BC #### [facility] [address] [address] [address] Anthony Bonilla Urea nitrogen [Mass/Vol] 33.0 mg/dL Critically high 7.0-18.0 [facility] Comment on above: Performed By: #### C BC #### [facility] [address] [address] [address] Anthony Bonilla Urea nitrogen/Creatinine [Mass ratio] 26.4 mg/mg Normal [facility] Comment on above: Performed By: #### C BC #### [facility] [address] [address] [address] Anthony Bonilla PROTIMEon 11-01-2021 INR Coag (PPP) [Relative time] 0.97 {INR} Normal [facility] Comment on above: Performed By: #### U RCX #### [facility] [address] [address] [address] Anthony Bonilla INR GUIDELINES SEE BELOW Normal [facility] Comment on above: Result Comment: MEGAN RED INR: 2.0 - 3.0 CONDITIONS NOT LISTED BELOW 2.5 - 3.5 FOR PROSTHETIC HEART VALVE REPLACEMENT 2.5 - 3.5 RECURRENT THROMBOSIS Performed By: #### U RCX #### [facility] [address] [place] [address] Dr. Anthony Bonilla PT Coag (PPP) [Time] 10.5 s Normal 9.0-11.6 [facility] Comment on above: Performed By: #### U RCX #### [facility] [address] [place] [address] Dr. Anthony Bonilla PTTon 11-01-2021 aPTT Coag (Bld) [Time] 27.8 s Normal 22.3-36.2 [facility] Comment on above: Performed By: #### U RCX #### [facility] [address] [place] [address] Dr. Anthony Bonilla TSHon 11-01-2021 TSH 1.011 uIU/mL Normal 0.358-3.74 0 [facility] Comment on above: Performed By: #### C BC #### [facility] [address] [place] [address] Dr. Anthony Bonilla URINE MICROSCOPIC ONLYon BACTERIA LARGE Abnormal NONE SEEN [facility] Comment on above: Performed By: #### U RCX #### [facility] [address] [place] [address] Dr. Anthony Bonilla Bacteria identified Cx Nom (U) INDICATED Normal [facility] Comment on above: Performed By: #### U RCX #### [facility] [address] [place] [address] Dr. Anthony Bonilla CAST NONE SEEN Normal NONE SEEN [facility] Comment on above: Performed By: #### U RCX #### [facility] [address] [place] [address] Dr. Anthony Bonilla Crystals LM Nom (Urine sed) NONE SEEN Normal NONE SEEN [facility] Comment on above: Performed By: #### U RCX #### [facility] Laboratory [address] [place] [address] Dr. Anthony Bonilla Epithelial cells LM Ql (Urine sed) FEW Abnormal NONE SEEN /RARE [facility] Comment on above: Performed By: #### U RCX #### [facility] Laboratory [address] [place] [address] Dr. Anthony Bonilla MUCOUS NONE SEEN Normal NONE SEEN [facility] Comment on above: Performed By: #### U RCX #### [facility] [address] [place] [address] Dr. Anthony Bonilla RBC 2-5 Abnormal 0-2 [facility] Comment on above: Performed By: #### U RCX #### [facility] [address] [place] [address] Dr. Anthony Bonilla WBC 0-2 Abnormal NONE SEEN [facility] Comment on above: Performed By: #### U RCX #### [facility] [address] [place] [address] Dr. Anthony Bonilla Covid-19 PCR (CVDTBH)on SARS-CoV-2 (COVID-19) RNA [place]+probe Ql (Unsp spec) Detected Critically abnormal NOT DETECTED [facility] Comment on above: Result Comment: This test is not yet approved or cleared by the [place] FDA. When there are no FDA-approved or cleared tests available, and other criteria are met, FDA can make tests available under an emergency access mechanism called an Emergency Use Authorization (EUA). The EUA for this test is supported by the [employer] Erector of Health and Human Service's declaration that [...] used). Performed By: #### C BC #### [facility] Laboratory [address] [place] [address] Dr. Anthony Bonilla Covid-19 PCR (CVDTBH)on SARS-CoV-2 (COVID-19) RNA [place]+probe Ql (Unsp spec) Not detected Normal NOT DETECTED [facility] Comment on above: Result Comment: This test is not yet approved or cleared by the [place] FDA. When there are no FDA-approved or cleared tests available, and other criteria are met, FDA can make tests available under an emergency access mechanism called an Emergency Use Authorization (EUA). The EUA for this test is supported by the [employer] Erector of Health and Human Service's (HHS's) declaration [...] SARS-CoV-2. Performed By: #### U RCX #### [facility] [address] [place] [address] Dr. 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 However, the narrative phrase printed from the coding software may appear abbreviated, or result in slightly different terminology. Revised Coded By: Ambar Manley Revised Date Saved: 10/19/2019 05:41 am [facility] Coding Queryon 10-02-2019 Coding Query HIM CODING QUERY FOR Accurate coding and billing requires that the principal diagnosis, secondary diagnosis and procedures be supported by physician documentation and that this documentation be reflected in the discharge summary (if required for patient type). Any time this information is not complete, it is the hearing care professional?s responsibility to query the physician. Based on [...] timely attention to this matter. Ambar Manley Pacs Administrator Ext [phone] [Electronically Signed on: 10/18/2019 21:40 EDT] Mi Licea DO [Verified on: 10/18/2019 21:40 EDT] Mi Licea DO [Transcribed on: 10/02/2019 11:06 EDT] [facility] Consent Formson 09-29-2019 Consent Forms [id number]#1.00OTGTI FF [facility] Medication Managementon 09-09 Medication Management [id number]#1.00OTGTI [place] Outside Recordson 09-29-2019 Outside Records [id number]#1.00OTGTI [place] Outside Records [id number][facility]erson [facility]-29-2019 Provider Orders [id number]#[facility] Telemetry Stripson 0 Telemetry Strips [id number][facility] 1on 2019 Auto [place] % 11 % Normal -12 [facility] Comment on above: Performed By: #### 1 [id number], [id number], [id number] #### [facility] (DEFAULT) [address] [place] [address] 93281 Baso Abs# 0.0 x10 Normal 0.0-0.2 [facility] Comment on above: Performed By: #### 1 [id number], [id number], [id number] #### [facility] (DEFAULT) [address] [place] [address] 26890 Basophils/100 WBC (Bld) 0.1 % Low 0.2-2.0 [facility] Comment on above: Performed By: #### 1 [id number], [id number], [id number] #### [facility] (DEFAULT) [address] [place] [address] 96228 Eos Abs# 0.2 x10 Normal 0.0-0.4 [facility] Comment on above: Performed By: #### 1 [id number], [id number], [id number] #### [facility] (DEFAULT) [address] [place] [address] 19663 Eosinophils/100 WBC (Bld) 2.2 % Normal 0.9-4.0 [facility] Comment on above: Performed By: #### 1 [id number], [id number], [id number] #### [facility] (DEFAULT) [address] [place] [address] Lymphocytes (Bld) [#/Vol] 0.6 x10 Low 1.3-2.9 [facility] Comment on above: Performed By: #### 1 [id number], [id number], [id number] #### [facility] (DEFAULT) [address] [place] [address] Lymphocytes/100 WBC (Bld) 6 % Low 14-48 [facility] Comment on above: Performed By: #### 1 [id number], [id number], [id number] #### [facility] (DEFAULT) [address] [place] [address] [place] Abs# 1.0 x10 High 0.0-0.8 [facility] Comment on above: Performed By: #### 1 [id number], [id number], [id number] #### [facility] (DEFAULT) [address] [place] [address] Neut Abs# 7.2 x10 Normal 1.5-9.2 [facility] Comment on above: Performed By: #### 1 [id number], [id number], [id number] #### [facility] (DEFAULT) [address] [place] [address] Neutrophils/100 WBC (Bld) 80 % Normal 44-88 [facility] Comment on above: Performed By: #### 1 [id number], [id number], [id number] #### [facility] (DEFAULT) [address] [place] [address] CBC w/ Auto Diffon 202 0 Erythrocyte distribution width (RBC) [Ratio] 14.4 % Normal 11.5-15.0 [facility] Comment on above: Performed By: #### 1 [id number], [id number], [id number] #### [facility] (DEFAULT) [address] [place] [address] Hematocrit (Bld) [Volume fraction] 36.2 % Normal 33.7-40.4 [facility] Comment on above: Performed By: #### 1 [id number], [id number], [id number] #### [facility] (DEFAULT) [address] [place] [address] 29543 Hemoglobin (Bld) [Mass/Vol] 11.9 g/dL Normal 11.3-15.9 [facility] Comment on above: Performed By: #### 1 [id number], [id number], [id number] #### [facility] (DEFAULT) [address] [place] [address] 56447 Man Diff? Auto Normal [facility] Comment on above: Performed By: #### 1 [id number], [id number], [id number] #### [facility] (DEFAULT) [address] [place] [address] 26083 MCH (RBC) [Entitic mass] 33 pg Normal 24-34 [facility] Comment on above: Performed By: #### 1 [id number], [id number], [id number] #### [facility] (DEFAULT) [address] [place] [address] 58227 MCHC (RBC) [Mass/Vol] 33 g/dL Normal 26-37 [facility] Comment on above: Performed By: #### 1 [id number], [id number], [id number] #### [facility] (DEFAULT) [address] [place] [address] 81347 MCV (RBC) [Entitic vol] 100 fL Normal 81-100 [facility] Comment on above: Performed By: #### 1 [id number], [id number], 5490239 #### [facility] (DEFAULT) [address] [place] [address] 56201 Platelet mean volume (Bld) [Entitic vol] 9.6 fL Normal 6.3-10.2 [facility] Comment on above: Performed By: #### 1 [id number], [id number], 5496660 #### [facility] (DEFAULT) [address] [place] [address] 36751 Platelets (Bld) [#/Vol] 286 x10 Normal 138-427 [facility] Comment on above: Performed By: #### 1 [id number], 78539453, 7212430 #### [facility] (DEFAULT) [address] [place] [address] RBC (Bld) [#/Vol] 3.61 x10 Low 3.70-5.30 [facility] Comment on above: Performed By: #### 1 [id number], [id number], 0687684 #### [facility] (DEFAULT) [address] [place] [address] 93616 WBC (Bld) [#/Vol] 9.0 x10 [facility] Comment on above: Performed By: #### 1 [id number], [id number], [id number] #### [facility] (DEFAULT) [address] [place] [address] 23772 Education Noteon 2019 Education Note Education Materials [...] rule of a DVT. Normal [facility] Extra Greenon 2019 Tube Collected Yes [facility] Comment on above: Performed By: #### 1 [id number], [id number], [id number] #### [facility] (DEFAULT) [address] [place] [address] 59690 Inpatient Patient Summaryon 2019 Inpatient Patient Summary [address] [address] Patient Discharge Instructions Name: VINCENT HSU : 1935 Patient Address: [address] [place] [address] Primary Care Provider: Name: Gypsy Mcmahon MD After you are discharged if you find you have any questions, please, call [phone] ext [phone] to speak to a nurse. Discharge Diagnosis: [...] drug addiction problems; contact the [facility] 31/08 Crisis Hotline -Text 4HBBY to 538701. If you received any narcotics, sedation, or [...] or sign any legal documents [facility] would like to thank you for allowing us to assist you with your healthcare needs. The following includes patient education materials and information regarding your injury/illness. HSU VINCENT Evangelista has been given the following list of follow-up instructions, prescriptions, and patient education materials: Follow-up Instructions With: Address: When: Mi Licea [address] [place] [address] [address] [place] [address] Business (2) 10/03/2019 8:30 AM With: Address: When: Gypsy Mcmahon [address] [place] [address] [place] [address] Business (1) Medications During the course of your visit, your medication list was updated with the most current information. The details of those changes are reflected below: New Medications Other Medications cefuroxime (cefuroxime 250 mg oral tablet) 1 tab(s) Oral 2 times a day for 7 Days. Medications That Were Updated - Follow Below [...] for Disease Control and Prevention October 2013 [facility] Progress Note - Nurseon 09-09 [facility] Pt[facility] transferred to bed times [...] on: 2019 11:52 EDT] Pan Regalado RN [facility] Progress Note - Nurse Pt. reports interm ittent left upper inner thigh grabbing pain. Pt. moans during these episodes. Tramadol given. Pt. repostioned for comfort. No change in the muscle spasms. Dr. Chacko informed in person. No orders received. [Electronically Signed on: 2019 09:32 EDT] Pan Regalado RN [Verified on: 2019 09:32 EDT] Pan Regalado RN [facility] Progress Note-Physicianon Progress Note-Physician DATE OF POSTOPERATIVE [...] PROGNOSIS: Good. Devorah Redd DO JOB #: [id number] [Electronically Signed on: 2019 13:04 EDT] DEVORAH REDD DO [Verified on: 2019 13:04 EDT] DEVORAH REDD DO [Transcribed on: 2019 11:05 EDT] GDU Normal [facility] .Auto Diff 1on 09-27-2019 Auto [place] % 9 % Normal 1-12 [facility] Comment on above: Performed By: #### 1 [id number], [id number], [id number] #### [facility] (DEFAULT) [address] [place] [address] 45718 Baso Abs# 0.0 x10 Normal 0.0-0.2 [facility] Comment on above: Performed By: #### 1 [id number], [id number], [id number] #### [facility] (DEFAULT) [address] [place] [address] 29078 Basophils/100 WBC (Bld) 0.1 % Low 0.2-2.0 [facility] Comment on above: Performed By: #### 1 [id number], [id number], [id number] #### [facility] (DEFAULT) [address] [place] [address] 46044 Eos Abs# 0.2 x10 Normal 0.0-0.4 [facility] Comment on above: Performed By: #### 1 [id number], [id number], 6485718 #### [facility] (DEFAULT) [address] [place] [address] 27356 Eosinophils/100 WBC (Bld) 1.6 % Normal 0.9-4.0 [facility] Comment on above: Performed By: #### 1 [id number], [id number], [id number] #### [facility] (DEFAULT) [address] [place] [address] 00094 Lymphocytes (Bld) [#/Vol] 0.5 x10 Low 1.3-2.9 [facility] Comment on above: Performed By: #### 1 [id number], [id number], 3340425 #### [facility] (DEFAULT) [address] [place] [address] 28983 Lymphocytes/100 WBC (Bld) 4 % Low 14-48 [facility] Comment on above: Performed By: #### 1 [id number], [id number], 6127341 #### [facility] (DEFAULT) [address] [place] [address] 30941 [place] Abs# 1.2 x10 High 0.0-0.8 [facility] Comment on above: Performed By: #### 1 [id number], [id number], 5669025 #### [facility] (DEFAULT) [address] [place] [address] 11794 Neut Abs# 11.5 x10 High 1.5-9.2 [facility] Comment on above: Performed By: #### 1 [id number], [id number], [id number] #### [facility] (DEFAULT) [address] [place] [address] 09587 Neutrophils/100 WBC (Bld) 86 % Normal 44-88 [facility] Comment on above: Performed By: #### 1 [id number], [id number], 7586727 #### [facility] (DEFAULT) [address] [place] [address] C Urineon 09-27-2019 C Urine Urine Culture [...] Tri/Sulf S <=2/38 Verified Normal [facility] Comment on above: Performed By: #### 7 [id number], [id number], [id number] #### [facility] (DEFAULT) [address] [place] [address] CBC w/ Auto Diffon 0 Erythrocyte distribution width (RBC) [Ratio] 14.5 % Normal 11.5-15.0 [facility] Comment on above: Performed By: #### 1 [id number], [id number], [id number] #### [facility] (DEFAULT) [address] [place] [address] Hematocrit (Bld) [Volume fraction] 39.2 % Normal 33.7-40.4 [facility] Comment on above: Performed By: #### 1 [id number], 74581736, 5795999 #### [facility] (DEFAULT) [address] [place] [address] Hemoglobin (Bld) [Mass/Vol] 12.8 g/dL Normal 11.3-15.9 [facility] Comment on above: Performed By: #### 1 [id number], [id number], 1071437 #### [facility] (DEFAULT) [address] [place] [address] 43714 Man Diff? Auto Normal [facility] Comment on above: Performed By: #### 1 [id number], [id number], [id number] #### [facility] (DEFAULT) [address] [place] [address] 87053 MCH (RBC) [Entitic mass] 33 pg Normal 24-34 [facility] Comment on above: Performed By: #### 1 [id number], [id number], [id number] #### [facility] (DEFAULT) [address] [place] [address] 29202 MCHC (RBC) [Mass/Vol] 33 g/dL Normal 26-37 [facility] Comment on above: Performed By: #### 1 [id number], [id number], [id number] #### [facility] (DEFAULT) [address] [place] [address] MCV (RBC) [Entitic vol] 101 fL High 81-100 [facility] Comment on above: Performed By: #### 1 [id number], [id number], [id number] #### [facility] (DEFAULT) [address] [place] [address] 93310 Platelet mean volume (Bld) [Entitic vol] 9.8 fL Normal 6.3-10.2 [facility] Comment on above: Performed By: #### 1 [id number], [id number], 5408731 #### [facility] (DEFAULT) [address] [place] [address] 37881 Platelets (Bld) [#/Vol] 266 x10 Normal 138-427 [facility] Comment on above: Performed By: #### 1 [id number], [id number], 8382097 #### [facility] (DEFAULT) [address] [place] [address] 10783 RBC (Bld) [#/Vol] 3.89 x10 Normal 3.70-5.30 [facility] Comment on above: Performed By: #### 1 [id number], [id number], 4110407 #### [facility] (DEFAULT) [address] [place] [address] WBC (Bld) [#/Vol] 13.4 x10 [facility] Comment on above: Result Comment: Slid e Reviewed Performed By: #### 1 [id number], [id number], [id number] #### [facility] (DEFAULT) [address] [place] [address] Coding Summaryon 09-27-2019 Coding Summary CODING DATE: 020 FINAL [facility] STATUS: Home PAYOR: Medicare ADMIT DX: [...] Marisela Lawrence Date Saved: 09/27/2019 11:11 am [facility] Extra Greenon 09-27-2019 Tube Collected Yes [facility] Comment on above: Performed By: #### 1 [id number], [id number], [id number] #### [facility] (DEFAULT) [address] [place] [address] 66789 Nutrition Noteon 09-27-2019 Nutrition Note Pt eating poorly, av g less than 30% of meals per intake records. Supplements also taken sporadically. Suspect pain and constipation may be playing a role. No new wts. Last BM 09/23. Possible discharge later today. Will continue to follow and monitor need to adjust supplements ie. offer to make into a milkshake, [facility] Pharmacy Noteon 09-27-2019 Pharmacy Note I have [...] [Verified on: 09/27/2019 14:01 EDT] Virgie Santos [facility] Progress Note - Nurseon 08- Progress Note - Nurse 1800 one dulcolax suppository administered, will continue to monitor. [Electronically Signed on: 09/27/2019 18:03 EDT] Luli Mclain RN [Verified on: 09/27/2019 18:03 EDT] Luli Mclain RN [facility] Progress Note - Nurse 1710 tramadol 50mg po administered for #10 left upper thigh pain , will continue to monitor. [Electronically Signed on: 09/27/2019 17:09 EDT] Luli Mclain RN [Verified on: 09/27/2019 17:09 EDT] Luli Mclain RN [facility] Progress Note-Physicianon Progress Note-Physician DATE OF POSTOPERATIVE [...] PROGNOSIS: Good. Devorah Redd DO JOB #: [id number] [Electronically Signed on: 2019 10:28 EDT] DEVORAH REDD DO [Verified on: 2019 10:28 EDT] DEVORAH REDD DO [Transcribed on: 09/27/2019 13:52 EDT] [facility] .Auto Diff 09-26-2019 Auto [place] % 9 % Normal 1-12 [facility] Comment on above: Performed By: #### 1 [id number], [id number], [id number] #### [facility] (DEFAULT) [address] [place] [address] Baso Abs# 0.0 x10 Normal 0.0-0.2 [facility] Comment on above: Performed By: #### 1 [id number], [id number], [id number] #### [facility] (DEFAULT) [address] [place] [address] Basophils/100 WBC (Bld) 0.1 % Low 0.2-2.0 [facility] Comment on above: Performed By: #### 1 [id number], [id number], [id number] #### [facility] (DEFAULT) [address] [place] [address] Eos Abs# 0.2 x10 Normal 0.0-0.4 [facility] Comment on above: Performed By: #### 1 [id number], [id number], [id number] #### [facility] (DEFAULT) [address] [place] [address] 64102 Eosinophils/100 WBC (Bld) 2.0 % Normal 0.9-4.0 [facility] Comment on above: Performed By: #### 1 [id number], [id number], 2885026 #### [facility] (DEFAULT) [address] [place] [address] 43620 Lymphocytes (Bld) [#/Vol] 0.6 x10 Low 1.3-2.9 [facility] Comment on above: Performed By: #### 1 [id number], [id number], [id number] #### [facility] (DEFAULT) [address] [place] [address] 04331 Lymphocytes/100 WBC (Bld) 6 % Low 14-48 [facility] Comment on above: Performed By: #### 1 [id number], [id number], 0527250 #### [facility] (DEFAULT) [address] [place] [address] [place] Abs# 0.9 x10 High 0.0-0.8 [facility] Comment on above: Performed By: #### 1 [id number], [id number], 4897549 #### [facility] (DEFAULT) [address] [place] [address] Neut Abs# 8.3 x10 Normal 1.5-9.2 [facility] Comment on above: Performed By: #### 1 [id number], [id number], [id number] #### [facility] (DEFAULT) [address] [place] [address] Neutrophils/100 WBC (Bld) 83 % Normal 44-88 [facility] Comment on above: Performed By: #### 1 [id number], [id number], [id number] #### [facility] (DEFAULT) [address] [place] [address] Standardon 09-26-2019 eGFR Non AA 48 mL/min/1.73m2 [facility] Comment on above: Performed By: #### 1 [id number], [id number], [id number] #### [facility] (DEFAULT) [address] [place] [address] eGFR AA 58 mL/min/1.73m2 [facility] Comment on above: Result Comment: Senior Compensation Consultant kody Kidney disease could be indicated at eGFRs of less than 60 ml/min/1.73m2. Kidney Failure is indicated at less than 15 ml/min/1.73m2 Performed By: #### 1 [id number], [id number], [id number] #### [facility] (DEFAULT) [address] [place] [address] 31801 Anion gap [Moles/Vol] 10.0 mmol/L Normal 5.0-19.0 [facility] Comment on above: Performed By: #### 1 [id number], [id number], [id number] #### [facility] (DEFAULT) [address] [place] [address] 09919 Calcium [Mass/Vol] 8.8 mg/dL Low 8.9-10.3 [facility] Comment on above: Performed By: #### 1 [id number], [id number], [id number] #### [facility] (DEFAULT) [address] [place] [address] 79028 Chloride [Moles/Vol] 103 mmol/L Normal 101-111 [facility] Comment on above: Performed By: #### 1 [id number], [id number], [id number] #### [facility] (DEFAULT) [address] [place] [address] 43991 CO2 [Moles/Vol] 28 mmol/L Normal 21-32 [facility] Comment on above: Performed By: #### 1 [id number], [id number], [id number] #### [facility] (DEFAULT) [address] [place] [address] 31740 Creatinine [Mass/Vol] 1.09 mg/dL Normal 0.60-1.30 [facility] Comment on above: Performed By: #### 1 [id number], [id number], [id number] #### [facility] (DEFAULT) [address] [place] [address] 10532 Glucose [Mass/Vol] 94.0 mg/dL Normal 74.0-118.0 [facility] Comment on above: Performed By: #### 1 [id number], [id number], [id number] #### [facility] (DEFAULT) [address] [place] [address] 06897 Osmolality [Osmolality] 276 mOsm/L [facility] Comment on above: Performed By: #### 1 [id number], [id number], [id number] #### [facility] (DEFAULT) [address] [place] [address] 75812 Potassium [Moles/Vol] 4.4 mmol/L Normal 3.6-5.1 [facility] Comment on above: Performed By: #### 1 [id number], [id number], [id number] #### [facility] (DEFAULT) [address] [place] [address] 44056 Sodium [Moles/Vol] 137.0 mmol/L Normal 136.0-144 . 0 [facility] Comment on above: Performed By: #### 1 [id number], [id number], [id number] #### [facility] (DEFAULT) [address] [place] [address] 48738 Urea nitrogen [Mass/Vol] 19 mg/dL Normal 8-26 [facility] Comment on above: Performed By: #### 1 [id number], [id number], [id number] #### [facility] (DEFAULT) [address] [place] [address] 37637 Urea nitrogen/Creatinine [Mass ratio] 17.0 mg/mg High 4.6-16.2 [facility] Comment on above: Performed By: #### 1 [id number], [id number], [id number] #### [facility] (DEFAULT) [address] [place] [address] 25055 CBC w/ Auto Diffon 0 Erythrocyte distribution width (RBC) [Ratio] 14.4 % Normal 11.5-15.0 [facility] Comment on above: Performed By: #### 1 [id number], [id number], [id number] #### [facility] (DEFAULT) [address] [place] [address] Hematocrit (Bld) [Volume fraction] 35.5 % Normal 33.7-40.4 [facility] Comment on above: Performed By: #### 1 [id number], [id number], [id number] #### [facility] (DEFAULT) [address] [place] [address] 08611 Hemoglobin (Bld) [Mass/Vol] 11.6 g/dL Normal 11.3-15.9 [facility] Comment on above: Performed By: #### 1 [id number], [id number], [id number] #### [facility] (DEFAULT) [address] [place] [address] 18472 Man Diff? Auto Normal [facility] [place] Comment on above: Performed By: #### 1 [id number], [id number], [id number] #### [facility] (DEFAULT) [address] [place] [address] 59734 MCH (RBC) [Entitic mass] 33 pg Normal 24-34 [facility] Comment on above: Performed By: #### 1 [id number], [id number], [id number] #### [facility] (DEFAULT) [address] [place] [address] 16676 MCHC (RBC) [Mass/Vol] 33 g/dL Normal 26-37 [facility] Comment on above: Performed By: #### 1 [id number], [id number], [id number] #### [facility] (DEFAULT) [address] [place] [address] MCV (RBC) [Entitic vol] 102 fL High 81-100 [facility] Comment on above: Performed By: #### 1 [id number], [id number], [id number] #### [facility] (DEFAULT) [address] [place] [address] Platelet mean volume (Bld) [Entitic vol] 9.8 fL Normal 6.3-10.2 [facility] Comment on above: Performed By: #### 1 [id number], [id number], [id number] #### [facility] (DEFAULT) [address] [place] [address] Platelets (Bld) [#/Vol] 236 x10 Normal 138-427 [facility] [place] Comment on above: Performed By: #### 1 [id number], [id number], [id number] #### [facility] (DEFAULT) [address] [place] [address] 43884 RBC (Bld) [#/Vol] 3.49 x10 Low 3.70-5.30 [facility] Comment on above: Performed By: #### 1 [id number], 81329305, 7293596 #### [facility] (DEFAULT) [address] [place] [address] 94403 WBC (Bld) [#/Vol] 10.0 x10 [facility] Comment on above: Performed By: #### 1 [id number], [id number], [id number] #### [facility] (DEFAULT) [address] [place] [address] Consent Formson 09-26-2019 Consent Forms [id number]#1.00OTGTI FF [facility] Consultation/Specialist Note on 09-26-2019 Consultation/Specialis t Note Patient: VINCENT HSU Age: 83 years Sex: FEMALE : [...] SUDHEER PIKE [Verified on: 09/26/2019 07:35 EDT] RIDDHISUDHEER HOLLOWAY [facility] Progress Note - Nurseon 09-08 Progress Note [...] on: 09/26/2019 07:45 EDT] Twila Cruz RN [facility] .Auto Diff 1on 09-25-2019 Auto [place] % 8 % Normal -12 [facility] Comment on above: Performed By: #### 1 [id number], [id number], [id number] #### [facility] (DEFAULT) [address] [place] [address] 91329 Baso Abs# 0.0 x10 Normal 0.0-0.2 [facility] Comment on above: Performed By: #### 1 [id number], 62333104, [id number] #### [facility] (DEFAULT) [address] [place] [address] 05822 Basophils/100 WBC (Bld) 0.2 % Normal 0.2-2.0 [facility] Comment on above: Performed By: #### 1 [id number], [id number], 4359800 #### [facility] (DEFAULT) [address] [place] [address] 46165 Eos Abs# 0.1 x10 Normal 0.0-0.4 [facility] Comment on above: Performed By: #### 1 [id number], 55248980, [id number] #### [facility] (DEFAULT) [address] [place] [address] 82893 Eosinophils/100 WBC (Bld) 0.5 % Low 0.9-4.0 [facility] Comment on above: Performed By: #### 1 [id number], 59001142, 7233982 #### [facility] (DEFAULT) [address] [place] [address] 69160 Lymphocytes (Bld) [#/Vol] 1.1 x10 Low 1.3-2.9 [facility] Comment on above: Performed By: #### 1 [id number], 66269638, 3728406 #### [facility] (DEFAULT) [address] [place] [address] 70380 Lymphocytes/100 WBC (Bld) 9 % Low 14-48 [facility] Comment on above: Performed By: #### 1 [id number], [id number], 6417911 #### [facility] (DEFAULT) [address] [place] [address] 23358 [place] Abs# 1.0 x10 High 0.0-0.8 [facility] Comment on above: Performed By: #### 1 [id number], 35124763, 3982100 #### [facility] (DEFAULT) [address] [place] [address] 96936 Neut Abs# 9.6 x10 High 1.5-9.2 [facility] Comment on above: Performed By: #### 1 [id number], [id number], 6244272 #### [facility] (DEFAULT) [address] [place] [address] 76629 Neutrophils/100 WBC (Bld) 82 % Normal 44-88 [facility] Comment on above: Performed By: #### 1 [id number], 43573598, 5500061 #### [facility] (DEFAULT) [address] [place] [address] 19068 ABORhon 09-25-2019 ABO and Rh group Nom (Bld) Hx Check: Not Found Anti-A: 4+ Anti-B: 0 Anti-D: 4+ DCon: NT A1: 0 B: 4+ ABORh Interp: A POS [facility] Comment on above: Performed By: #### 7 [id number], [id number], [id number] #### [facility] (DEFAULT) [address] [place] [address] 73883 ABORh Retypeon 09-25-2019 ABO and Rh group Nom (Bld) Ordered by Discern. Anti-A: 4+ Anti-B: 0 Anti-D: 4+ DCon: NT A1: 0 B: 4+ ABORh Retype: A [facility] Comment on above: Performed By: #### 7 [id number], [id number], [id number] #### [facility] (DEFAULT) [address] [place] [address] 30675 ABSC Gelon 09-25-2019 ABSC Gel Negative Normal [facility] Comment on above: Performed By: #### 7 [id number], 90181467, [id number] #### [facility] (DEFAULT) [address] [place] [address] 93590 Anesthesia Noteon 09-25-2019 Anesthesia Note Patient: DONTAE [...] risk of pressure sore / SNOMED CT 023927326 / Confirmed CAD (coronary artery disease) / SNOMED CT 90125124 / Confirmed Hyperlipidemia / SNOMED CT 65871969 / Confirmed Hypertension / SNOMED CT 2540016897 / Confirmed Skin cancer / SNOMED CT 4373936246 / Confirmed Osteoporosis / SNOMED CT 473067741 / Confirmed Restless leg syndrome / SNOMED CT 97133950 / Confirmed Resolved: GERD (gastroesophageal reflux disease) / SNOMED CT 981934762 Histories Family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 [id number] #### [facility] (DEFAULT) [address] [place] [address] 68564 RBC (Bld) [#/Vol] 3.82 x10 Normal 3.70-5.30 [facility] Comment on above: Performed By: #### 7 013366, [id number], [id number] #### [facility] (DEFAULT) [address] [place] [address] 09493 WBC (Bld) [#/Vol] 10.1 x10 Normal 3.5-10.5 [facility] Comment on above: Performed By: #### 7 503389, 39024696, [id number] #### [facility] (DEFAULT) [address] [place] [address] UA Aiprl4gh 09-01-2019 RBC (U) [#/Vol] None Seen [facility] Comment on above: Order Comment: Urina lysis Microscopic order added on by [employer] Rules system. Performed By: #### 1 [id number], [id number], [id number] #### [facility] (DEFAULT) [address] [place] [address] UA Amorph. 1+ [facility] [place] Comment on above: Order Comment: Urina lysis Microscopic order added on by [employer] Rules system. Performed By: #### 1 [id number], [id number], [id number] #### [facility] (DEFAULT) [address] [place] [address] UA Bacteria 4+ [facility] [place] Comment on above: Order Comment: Urina lysis Microscopic order added on by [employer] Rules system. Performed By: #### 1 [id number], [id number], [id number] #### [facility] (DEFAULT) [address] [place] [address] UA Squam Epi Moderate [facility] [place] Comment on above: Order Comment: Urina lysis Microscopic order added on by [employer] Expert Rules system. Performed By: #### 1 [id number], [id number], [id number] #### [facility] (DEFAULT) [address] [place] [address] UA WBC 15-20 [facility] [place] Comment on above: Order Comment: Urina lysis Microscopic order added on by [employer] Expert Rules system. Performed By: #### 1 [id number], [id number], [id number] #### [facility] (DEFAULT) [address] [place] [address] UA w Culture if Ind Standard on 09-01-2019 Breakpoint UA [facility] [place] Comment on above: Performed By: #### 1 [id number], [id number], [id number] #### [facility] (DEFAULT) [address] [place] [address] Color (U) Yellow [facility] Comment on above: Performed By: #### 1 [id number], [id number], [id number] #### [facility] (DEFAULT) [address] [place] [address] 03895 Culture? Yes Normal [facility] [place] Comment on above: Performed By: #### 1 [id number], [id number], [id number] #### [facility] (DEFAULT) [address] [place] [address] 73141 Glucose (U) [Mass/Vol] Negative Normal [facility] Comment on above: Performed By: #### 1 [id number], [id number], [id number] #### [facility] (DEFAULT) [address] [place] [address] 98126 Ketones Ql (U) Negative Normal [facility] [place] Comment on above: Performed By: #### 1 [id number], [id number], [id number] #### [facility] (DEFAULT) [address] [place] [address] 74602 Micro? Indicated [facility] [place] Comment on above: Performed By: #### 1 [id number], [id number], [id number] #### [facility] (DEFAULT) [address] [place] [address] 24533 UA Bilirubin Negative Normal [facility] [place] Comment on above: Performed By: #### 1 [id number], [id number], [id number] #### [facility] (DEFAULT) [address] [place] [address] 41852 UA Blood TRACE Abnormal NEGATIVE [facility] [place] Comment on above: Performed By: #### 1 [id number], [id number], [id number] #### [facility] (DEFAULT) [address] [place] [address] 38250 UA Clarity CLEAR Normal CLEAR [facility] [place] Comment on above: Performed By: #### 1 [id number], [id number], [id number] #### [facility] (DEFAULT) [address] [place] [address] 74685 UA Leuk Est MODERATE Abnormal NEGATIVE [facility] [place] Comment on above: Performed By: #### 1 [id number], [id number], [id number] #### [facility] (DEFAULT) [address] [place] [address] 51269 UA Nitrite Positive Abnormal NEGATIVE [facility] [place] Comment on above: Performed By: #### 1 [id number], [id number], [id number] #### [facility] (DEFAULT) [address] [place] [address] 91286 UA pH 5.5 Normal 5-8 [facility] [place] Comment on above: Performed By: #### 1 [id number], [id number], [id number] #### [facility] (DEFAULT) [address] [place] [address] 64327 UA Protein Negative Normal NEGATIVE [facility] [place] Comment on above: Performed By: #### 1 [id number], [id number], [id number] #### [facility] (DEFAULT) [address] [place] [address] 73160 UA Spec Grav 1.025 Normal 1.001-1.[address] [place] [address] Comment on above: Performed By: #### 1 [id number], [id number], [id number] #### [facility] (DEFAULT) [address] [place] [address] 31081 UA Urobilinogen 0.2 mg/dL Normal 0.2-1.0 [facility] [place] Comment on above: Performed By: #### 1 [id number], [id number], [id number] #### [facility] (DEFAULT) [address] [place] [address] 06405 Urine Source Clean Catch Normal [facility] Comment on above: Performed By: #### 1 [id number], [id number], [id number] #### [facility] (DEFAULT) [address] [place] [address] 73706 JOINT PAIN INJECTION 09-06 JOINT PAIN INJECTION [facility] Department of Radiology [address] [place] [address] Patient Name: VINCENT HSU : 1935 Sex: F Age: Race: White Pt. Location: Patient Status: D Ordered Date: 08/08/2018 3:50:00 PM Completed Date: 09/06/2018 03:43 PM Requesting Provider: HERMELINDO HILLMAN Attending Provider: HERMELINDO HILLMAN Report Copy To: GYPSY MCMAHON Signs & Symptoms: M16.12 Unilateral primary osteoarthritis, left hip I10 History: [place] Comments: , Dr. Ochoa , Body Part: [...] guidance. Electronically signed by:Christy Ochoa. Transcribed by: [email or web address], User Resident: Electronically Signed by: CHRISTY OCHOA @ 09/09/2018 05:57 PM Normal [facility] Comment on above: Order Comment: , Dr. Ochoa , Body Part: Hip , Side: LEFT , Dr. Ochoa , Body Part: Hip , Side: LEFT , , , Ordering Provider - HERMELINDO HILLMAN MD , CT 3D LOWER EXTREMITY WO CON TRAST LEFTon 08-02-2018 CT 3D LOWER EXTREMITY WO CONTRAST LEFT [facility] Department of Radiology [address] [place] [id number] Patient Name: VINCENT HSU : 1935 Sex: F Age: Race: White Pt. 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 MEDICARE NO PC REQ [...] arthritis. Electronically signed by:Coy Jerome. Transcribed by: [email or web address], User Resident: Electronically Signed by: COY JEROME @ 08/08/2018 02:20 PM Normal [facility] Comment on above: Order Comment: , Jessie perkins left hip healing HIP LEFT 1 OR 2 VWS WITH PEL VISon 03-18-2018 HIP LEFT 1 OR 2 VWS WITH PELVIS [facility] Department of Radiology [address] [place] [address] Patient Name: VINCENT HSU : 1935 Sex: F Age: Race: White Pt. 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 Transcribed by: [email or web address], User Resident: Electronically Signed by: COY JEROME @ 03/18/2018 02:19 PM Normal [facility] Comment on above: Order Comment: , , = ========= , Ordering Provider - MIRTHA VELÁSQUEZ PA-C , HIP LEFT 1 OR 2 VWS WITH PEL VISon 01-10-2018 HIP LEFT 1 OR 2 VWS WITH PELVIS [facility] Department of Radiology [address] [place] [id number] Patient Name: VINCENT HSU : 1935 Sex: F Age: Race: White Pt. 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 Electronically signed by:Manjit Whatley. Transcribed by: [email or web address], User Resident: Electronically Signed by: MANJIT WHATLEY @ 01/10/2018 04:38 PM Normal [facility] Comment on above: Order Comment: , Carmella ws (X-RAY, HIP): Radiologic Protocol , Views (X-RAY, HIP): Radiologic Protocol , , , Ordering Rebeka VELÁSQUEZ PA-C , HIP LEFT 1 OR 2 VWS WITH PEL VISon 11-01-2017 HIP LEFT 1 OR 2 VWS WITH PELVIS [facility] Department of Radiology [address] [place] [id number] Patient Name: VINCENT HSU : 1935 Sex: F Age: Race: White Pt. 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 Electronically signed by:Gerson Rodriguez. Transcribed by: [email or web address], User Resident: Electronically Signed by: GERSON RODRIGUEZ @ 11/01/2017 03:25 PM Normal [facility] Comment on above: Order Comment: , Elanae ws (X-RAY, HIP): Radiologic Protocol , Views (X-RAY, HIP): Radiologic Protocol , , , Ordering Provider - MIRTHA VELÁSQUEZ PA-C , HIP LEFT 1 OR 2 VWS WITH PEL VISon 09-21-2017 HIP LEFT 1 OR 2 VWS WITH PELVIS [facility] Department of Radiology [address] [place] [address] Patient Name: VINCENT HSU : 1935 Sex: F Age: Race: [...] fracture Electronically signed by:Coy Jerome. Transcribed by: [email or web address], User Resident: Electronically Signed by: COY JEROME @ 09/21/2017 03:27 PM Normal [facility] Comment on above: Order Comment: , , = ========= , Ordering Rebeka MORENO-C , Vital Signs Date Time Vital Sign Value Performing Clinician Facility 05-24-2023 13:35-0400 Body height 177.8 cm MD Gypsy Mcmahon Work Phone: [facility] 05-24-2023 13:35-0400 Body mass index (BMI) [Ratio] 18.8 kg/m2 MD Gypsy Mcmahon Work Phone: [facility] 05-24-2023 13:35-0400 Body temperature 97.7 [degF] MD Gypsy Mcmahon Work Phone: [facility] 05-24-2023 13:35-0400 Body weight 59.42 kg MD Gypsy Mcmahon Work Phone: [facility] 05-24-2023 13:35-0400 Diastolic blood pressure 54 mm[Hg] MD Gypsy Mcmahon Work Phone: [facility] 05-24-2023 13:35-0400 Heart rate 63 /min MD Gypsy Mcmahon Work Phone: [facility] 05-24-2023 13:35-0400 Systolic blood pressure 127 mm[Hg] MD Gypsy Mcmahon Work Phone: [facility] 05-21-2023 10:26-0400 Body height 177.8 cm MD Gypsy Mcmahon Work Phone: [facility] 05-21-2023 09:54-0400 Body mass index (BMI) [Ratio] 18.6 kg/m2 MD Gypsy Mcmahon Work Phone: [facility] 05-21-2023 09:54-0400 Body weight 58.96 kg MD Gypsy Mcmahon Work Phone: [facility] 05-05-2023 16:40-0400 Diastolic blood pressure 71 mm[Hg] MD Jacinto Max Work Phone: [facility] 05-05-2023 16:40-0400 Systolic blood pressure 170 mm[Hg] MD Jacinto Max Work Phone: [facility] 05-05-2023 16:36-0400 Body height 177.8 cm MD Jacinto Max Work Phone: [facility] 05-05-2023 16:36-0400 Body temperature 98.1 [degF] MD Jacinto Max Work Phone: [facility] 05-05-2023 16:36-0400 Body weight 59.87 kg MD Jacinto Max Work Phone: [facility] 05-05-2023 16:36-0400 Heart rate 71 /min MD Jacinto Max Work Phone: [facility] 05-05-2023 16:36-0400 Respiratory rate 18 /min MD Jacinto Max Work Phone: [facility] 05-05-2023 16:36-0400 SaO2% (BldA) [Mass fraction] 98 % MD Jacinto Max Work Phone: [facility] 04-15-2023 13:30-0500 Body height 167.64 cm MD Jacinto Max Work Phone: [facility] 04-15-2023 13:30-0500 Body mass index (BMI) [Ratio] 20.8 kg/m2 MD Jacinto Max Work Phone: [facility] 04-15-2023 13:30-0500 Body temperature 97.2 [degF] MD Jacinto Max Work Phone: [facility] 04-15-2023 13:30-0500 Body weight 58.57 kg MD Jacinto Max Work Phone: [facility] 04-15-2023 13:30-0500 Diastolic blood pressure 75 mm[Hg] MD Jacinto Max Work Phone: [facility] 04-15-2023 13:30-0500 Heart rate 60 /min MD Jacinto Max Work Phone: [facility] 04-15-2023 13:30-0500 Systolic blood pressure 165 mm[Hg] MD Jacinto Max Work Phone: [facility] 02-26-2023 10:00-0500 Body height 167.64 cm MD Jacinto Max Work Phone: [facility] 02-26-2023 10:00-0500 Diastolic blood pressure 76 mm[Hg] MD Jacinto Max Work Phone: [facility] 02-26-2023 10:00-0500 Systolic blood pressure 156 mm[Hg] MD Jacinto Max Work Phone: [facility] 02-25-2023 10:15-0500 Body height 175.26 cm MD Jacinto Max Work Phone: [facility] 02-25-2023 10:15-0500 Body weight 59.1 kg MD Jacinto Max Work Phone: [facility] 02-25-2023 10:02-0500 Diastolic blood pressure 74 mm[Hg] MD Jacinto Max Work Phone: [facility] 02-25-2023 10:02-0500 Heart rate 67 /min MD Jacinto Max Work Phone: [facility] 02-25-2023 10:02-0500 Systolic blood pressure 157 mm[Hg] MD Jacinto Max Work Phone: [facility] 02-18-2023 14:00-0500 Body height 167.64 cm Jacinto Mxa Other [facility] 02-18-2023 14:00-0500 Body mass index (BMI) [Ratio] 20.66 kg/m2 Jacinto Max Other [facility] Other 02-18-2023 14:00-0500 Body temperature 97.2 [degF] Jacinto Max Other [facility] Other 02-18-2023 14:00-0500 Body weight 58.06 kg Jacinto Max Other [facility] Other 02-18-2023 14:00-0500 Body weight 58.05 kg MD Jacinto Max Work Phone: [facility] 02-18-2023 14:00-0500 Diastolic blood pressure 66 mm[Hg] Jacinto Max Other [facility] 02-18-2023 14:00-0500 Systolic blood pressure 150 mm[Hg] Jacinto Max Other [facility] 02-16-2023 13:30-0500 Body height 167.64 cm Gypsy Mcmahon Other [facility] 02-16-2023 13:30-0500 Body mass index (BMI) [Ratio] 20.66 kg/m2 Gypsy Mcmahon Other [facility] Other 02-16-2023 13:30-0500 Body weight 58.06 kg Gypsy Mcmahon Other [facility] Other 02-16-2023 13:30-0500 Body weight 58.05 kg MD Jacinto Max Work Phone: [facility] 02-16-2023 13:30-0500 Diastolic blood pressure 68 mm[Hg] Gypsy Mcmahon Other [facility] 02-16-2023 13:30-0500 SaO2% (BldA) [Mass fraction] 96 % Gypsy Mcmahon Other [facility] Other 02-16-2023 13:30-0500 Systolic blood pressure 140 mm[Hg] Gypsy Mcmahon Other [facility] 02-04-2023 09:09-0500 Heart rate 84 /min MALATHI DEB [facility] 02-04-2023 09:09-0500 SaO2% (BldA) [Mass fraction] 95 % MALATHI DEB [facility] 02-04-2023 09:08-0500 Diastolic blood pressure 88 mm[Hg] MALATHI DEB [facility] 02-04-2023 09:08-0500 Mean blood pressure 121 mm[Hg] MALATHI DEB [facility] 02-04-2023 09:08-0500 Systolic blood pressure 188 mm[Hg] MALATHI DEB [facility] 02-04-2023 09:08-0500 Respiratory rate 20 /min MALATHI DEB [facility] 02-04-2023 09:08-0500 Body temperature 97.7 [degF] MALATHI DEB [facility] 02-03-2023 09:15-0500 Heart rate 77 /min MALATHI DEB [facility] 02-03-2023 09:15-0500 SaO2% (BldA) [Mass fraction] 97 % MALATHI DEB [facility] 02-03-2023 09:14-0500 Respiratory rate 18 /min MALATHI DEB [facility] 02-03-2023 09:14-0500 Diastolic blood pressure 97 mm[Hg] MALATHI DEB [facility] 02-03-2023 09:14-0500 Mean blood pressure 130 mm[Hg] MALATHI DEB [facility] 02-03-2023 09:14-0500 Systolic blood pressure 197 mm[Hg] MALATHI DEB [facility] 02-03-2023 09:13-0500 Body temperature 98.06 [degF] MALATHI DEB [facility] 02-02-2023 09:10-0500 Heart rate 75 /min MALATHI DEB [facility] 02-02-2023 09:10-0500 SaO2% (BldA) [Mass fraction] 93 % MALATHI DEB [facility] 02-02-2023 09:09-0500 Respiratory rate 20 /min MALATHI DEB [facility] 02-02-2023 09:08-0500 Diastolic blood pressure 87 mm[Hg] MALATHI DEB [facility] 02-02-2023 09:08-0500 Mean blood pressure 123 mm[Hg] MALATHI DEB [facility] 02-02-2023 09:08-0500 Systolic blood pressure 194 mm[Hg] MALATHI DEB [facility] 02-02-2023 09:08-0500 Body temperature 97.7 [degF] MALATHI DEB [facility] 02-01-2023 09:50-0500 Heart rate 77 /min MALATHI DEB [facility] 02-01-2023 09:50-0500 Mean blood pressure 115 mm[Hg] MALATHI DEB [facility] 02-01-2023 09:10-0500 Heart rate 84 /min MALATHI DEB [facility] 01-29-2023 11:26-0500 Heart rate 75 /min MALATHI DEB [facility] 01-29-2023 11:26-0500 SaO2% (BldA) [Mass fraction] 95 % MALATHI DEB [facility] 01-29-2023 11:26-0500 Respiratory rate 16 /min MALATHI DEB [facility] 01-29-2023 11:25-0500 Diastolic blood pressure 83 mm[Hg] MALATHI DEB [facility] 01-29-2023 11:25-0500 Mean blood pressure 108 mm[Hg] MALATHI DEB [facility] 01-29-2023 11:25-0500 Systolic blood pressure 158 mm[Hg] MALATHI DEB [facility] 01-29-2023 11:25-0500 Body temperature 98.06 [degF] MALATHI DEB [facility] 01-29-2023 10:54-0500 Heart rate 74 /min MALATHI DEB [facility] 01-29-2023 10:54-0500 SaO2% (BldA) [Mass fraction] 97 % MALATHI DEB [facility] 01-29-2023 10:54-0500 Respiratory rate 16 /min MALATHI VIEIRA [facility] 01-29-2023 10:53-0500 Body temperature 97.52 [degF] MALATHI VIEIRA [facility] 01-29-2023 10:53-0500 Diastolic blood pressure 84 mm[Hg] MALATHI VIEIRA [facility] 01-29-2023 10:53-0500 Mean blood pressure 104 mm[Hg] MALATHI VIEIRA [facility] 01-29-2023 10:53-0500 Systolic blood pressure 146 mm[Hg] MALATHI VIEIRA [facility] 01-12-2023 13:30-0500 Body height 167.64 cm Hunter Brown Other [facility] Other 01-12-2023 13:30-0500 Body mass index (BMI) [Ratio] 22 kg/m2 Hunter Brown Other [facility] Other 01-12-2023 13:30-0500 Body weight 61.83 kg Hunter Brwon Other [facility] Other 01-12-2023 13:30-0500 Diastolic blood pressure 60 mm[Hg] Hunter Brown Other [facility] Other 01-12-2023 13:30-0500 Systolic blood pressure 137 mm[Hg] Hunter Brown Other [facility] Other 01-05-2023 11:30-0500 Body height 167.64 cm Gypsy Mcmahon Other [facility] Other 01-05-2023 11:30-0500 Body mass index (BMI) [Ratio] 21.63 kg/m2 Gypsy Mcmahon Other [facility] Other 01-05-2023 11:30-0500 Body weight 60.78 kg Gypsy Mcmahon Other [facility] Other 01-05-2023 11:30-0500 Diastolic blood pressure 72 mm[Hg] Gypsy Mcmahon Other [facility] Other 01-05-2023 11:30-0500 Systolic blood pressure 162 mm[Hg] Gypsy Mcmahon Other [facility] Other 12-28-2022 13:30-0500 Body height 167.64 cm Malathi Velázquez Other [facility] Other 12-28-2022 13:30-0500 Body mass index (BMI) [Ratio] 19.98 kg/m2 Malathi Velázquez Other [facility] Other 12-28-2022 13:30-0500 Body weight 56.16 kg Malathi Velázquez Other [facility] Other 12-28-2022 13:30-0500 Diastolic blood pressure 78 mm[Hg] Malathi Velázquez Other [facility] Other 12-28-2022 13:30-0500 Systolic blood pressure 146 mm[Hg] Malathi Velázquez Other [facility] Other 12-15-2022 11:15-0500 Body height 167.64 cm Gypsy Mcmahon Other [facility] Other 12-15-2022 11:15-0500 Body mass index (BMI) [Ratio] 21.53 kg/m2 Gypsy Mcmahon Other [facility] Other 12-15-2022 11:15-0500 Body weight 60.51 kg Gypsy Mcmahon Other [facility] Other 12-15-2022 11:15-0500 Diastolic blood pressure 73 mm[Hg] Gypsy Mcmahon Other [facility] Other 12-15-2022 11:15-0500 Systolic blood pressure 178 mm[Hg] Gypsy Mcmahon Other [facility] Other 09-22-2022 14:14-0400 Blood Pressure Location MALATHI DEB [facility] 09-22-2022 14:14-0400 Diastolic blood pressure 90 mm[Hg] MALATHI DEB [facility] 09-22-2022 14:14-0400 Heart rate 78 /min MALATHI DEB [facility] 09-22-2022 14:14-0400 Systolic blood pressure 142 mm[Hg] MALATHI DEB [facility] 09-01-2022 14:15-0400 Body height 167.64 cm Gypsy Mcmahon Other [facility] Other 09-01-2022 14:15-0400 Body mass index (BMI) [Ratio] 21.14 kg/m2 Gypsy Mcmahon Other [facility] Other 09-01-2022 14:15-0400 Body weight 59.42 kg Gypsy Mcmahon Other [facility] Other 09-01-2022 14:15-0400 Diastolic blood pressure 56 mm[Hg] Gypsy Mcmahon Other [facility] Other 09-01-2022 14:15-0400 Systolic blood pressure 132 mm[Hg] Gypsy Mcmahon Other [place] Other 06-09-2022 13:42-0400 Diastolic blood pressure 71 mm[Hg] Marvin SNAPP' [facility] 06-09-2022 13:42-0400 Heart rate 59 /min Soweso [facility] 06-09-2022 13:42-0400 Systolic blood pressure 183 mm[Hg] Marvin KWON [facility] 04-24-2022 11:30-0400 Body height 167.64 cm Hunter Brown Other [facility] Other 04-24-2022 11:30-0400 Body mass index (BMI) [Ratio] 22.11 kg/m2 Hunter Brown Other [facility] Other 04-24-2022 11:30-0400 Body weight 62.14 kg Hunter Brown Other [facility] Other 04-24-2022 11:30-0400 Diastolic blood pressure 70 mm[Hg] Hunter Brown Other [facility] Other 04-24-2022 11:30-0400 Systolic blood pressure 159 mm[Hg] Hunter Brown Other [facility] Other 04-07-2022 14:15-0500 Body height 167.64 cm Gypsy Mcmahon Other [facility] Other 04-07-2022 14:15-0500 Body mass index (BMI) [Ratio] 21.79 kg/m2 Gypsy Mcmahon Other [facility] Other 04-07-2022 14:15-0500 Body weight 61.24 kg Gypsy Mcmahon Other [facility] Other 04-07-2022 14:15-0500 Diastolic blood pressure 62 mm[Hg] Gypsy Mcmahon Other [facility] Other 04-07-2022 14:15-0500 Systolic blood pressure 130 mm[Hg] Gypsy Mcmahon Other [facility] Other 03-11-2022 13:35-0500 Body temperature 97.5 [degF] MD Gypsy Mcmahon Work Phone: [facility] 03-11-2022 13:35-0500 Diastolic blood pressure 61 mm[Hg] MD Gypsy Mcmahon Work Phone: [facility] 03-11-2022 13:35-0500 Heart rate 60 /min MD Gypsy Mcmahon Work Phone: [facility] 03-11-2022 13:35-0500 Respiratory rate 18 /min MD Gypsy Mcmahon Work Phone: [facility] 03-11-2022 13:35-0500 SaO2% (BldA) [Mass fraction] 96 % MD Gypsy Mcmahon Work Phone: [facility] 03-11-2022 13:35-0500 Systolic blood pressure 135 mm[Hg] MD Gypsy Mcmahon Work Phone: [facility] 02-16-2022 10:45-0500 Body height 167.64 cm Gypsy Mcmahon Other [facility] Other 02-16-2022 10:45-0500 Body mass index (BMI) [Ratio] 21.46 kg/m2 Gypsy Mcmahon Other [facility] Other 02-16-2022 10:45-0500 Body weight 60.33 kg Gypsy Mcmahon Other [facility] Other 02-16-2022 10:45-0500 Diastolic blood pressure 70 mm[Hg] Gypsy Mcmahon Other [facility] Other 02-16-2022 10:45-0500 Systolic blood pressure 120 mm[Hg] Gypsy Mcmahon Other [facility] Other 02-11-2022 12:00-0500 Body height 172.72 cm Hunter Brown Other [facility] Other 02-11-2022 12:00-0500 Body mass index (BMI) [Ratio] 20.83 kg/m2 Hunter Brown Other [facility] Other 02-11-2022 12:00-0500 Body weight 62.14 kg Hunter Brown Other [facility] Other 02-11-2022 12:00-0500 Diastolic blood pressure 68 mm[Hg] Hunter Brown Other [facility] Other 02-11-2022 12:00-0500 Systolic blood pressure 144 mm[Hg] Hunter Brown Other [facility] Other 01-05-2022 10:30-0500 Body height 172.72 cm Hunter Brown Other [facility] Other 01-05-2022 10:30-0500 Body mass index (BMI) [Ratio] 22.04 kg/m2 Hunter Brown Other [facility] Other 01-05-2022 10:30-0500 Body weight 65.77 kg Hunter Brown Other [facility] Other 01-05-2022 10:30-0500 Diastolic blood pressure 78 mm[Hg] Hunter Brown Other [facility] Other 01-05-2022 10:30-0500 Systolic blood pressure 166 mm[Hg] Hunter Brown Other [facility] Other 03-27-2021 12:00-0500 Body height 172.72 cm Giana Griffiths Other [facility] Other 03-27-2021 12:00-0500 Body mass index (BMI) [Ratio] 22.96 kg/m2 Giana Rhoadeskes Other [facility] Other 03-27-2021 12:00-0500 Body weight 68.49 kg Giana Jfkes Other [facility] Other 01-27-2021 10:45-0500 Body height 172.72 cm Giana Jfkes Other [facility] Other 01-27-2021 10:45-0500 Body mass index (BMI) [Ratio] 24.48 kg/m2 Giana Jfkes Other [facility] Other 01-27-2021 [id number] Body weight 73.03 kg Giana Griffiths Other [facility] Other Encounters Encounter Date Encounter Type Care Provider Facility Start: 06-23-2023 End: 06-24-2023 ambulatory [facility] Start: 06-17-2023 End: 06-17-2023 ambulatory [facility] Start: 06-15-2023 End: 06-15-2023 ambulatory MALATHI VIEIRA Facility: [facility] Start: 06-15-2023 End: 06-15-2023 Patient encounter procedure MALATHI VIEIRA [facility] Start: 05-28-2023 End: 05-28-2023 ambulatory Monie L Ly Facility:[facility] Start: 05-28-2023 End: 05-28-2023 ambulatory MD Gypsy Mcmahon Work Phone: [facility] Work Phone: Start: 05-28-2023 End: 05-28-2023 Patient encounter procedure MD Gypsy Mcmahon Work Phone: [facility]-CT Scan [facility] [place] Work Phone: Start: 05-25-2023 Non-patient / Non-visit MD Gypsy Mcmahon Work Phone: [facility] Work Phone: Start: 05-24-2023 End: 05-24-2023 Patient encounter procedure MD Gypsy Mcmahon Work Phone: [facility]ious Disease Work Phone: Start: 05-21-2023 End: 05-21-2023 Patient encounter procedure MD Gypsy Mcmahon Work Phone: [facility] Gastroenterology Work Phone: Start: 05-06-2023 Non-patient / Non-visit MD Gypsy Mcmahon Work Phone: [facility] Work Phone: Start: 05-05-2023 End: 05-05-2023 Emergency department patient visit Marvin Garcia Facility:[facility] Start: 05-05-2023 End: 05-05-2023 Emergency department patient visit MD Jacinto Max Work Phone: [facility] Work Phone: Start: 05-01-2023 Non-patient / Non-visit MD Jacinto Max Work Phone: [facility] Work Phone: Start: 04-15-2023 End: 04-15-2023 Patient encounter procedure MD Jacinto Max Work Phone: [facility] Infectious Disease Work Phone: Start: 04-06-2023 Non-patient / Non-visit MD Jacinto Max Work Phone: [facility] Work Phone: Start: 03-12-2023 End: 03-12-2023 ambulatory Jacinto Max Other [facility] Other Start: 03-12-2023 Telephone encounter Jacinto BA G Infectious Disease Start: 03-11-2023 End: 03-11-2023 ambulatory Jacinto Max Other [facility] Other Start: 03-11-2023 Telephone encounter Jacinto Bustamante Infectious Disease Start: 03-02-2023 End: 03-02-2023 ambulatory Gypsy Mcmahon Other [facility] Other Start: 03-02-2023 Telephone encounter Gypsy Mcmahon [facility] Start: 02-26-2023 End: 02-26-2023 Patient encounter procedure MD Jacinto Max Work Phone: [facility]- Start: 02-25-2023 End: 02-25-2023 ambulatory Jacinto Max Facility:[facility] Start: 02-25-2023 End: 02-25-2023 ambulatory MD Jacinto Max Work Phone: [facility] Work Phone: Start: 02-25-2023 End: 02-25-2023 Discharged Recurring MD Jacinto Max Work Phone: [facility]Infusion Therapy - O/P Work Phone: Start: 02-18-2023 End: 02-18-2023 ambulatory Jacinto Max Other [facility] Other Start: 02-18-2023 Office outpatient ne w 45 minutes Jacinto Max [facility] Infectious Disease Start: 02-18-2023 End: 02-18-2023 Patient encounter procedure MD Jacinto Max Work Phone: [facility] Infectious Disease Work Phone: Start: 02-16-2023 End: 02-16-2023 ambulatory Gypsy Mcmahon Other [facility] Other Start: 02-16-2023 Office outpatient visit 15 minutes Gypsy Mcmahon [facility] Start: 02-16-2023 End: 02-16-2023 Patient encounter procedure MD Jacinto Max Work Phone: [facility] Work Phone: Start: 01-29-2023 End: 05-05-2023 ambulatory MALATHI VIEIRA Facility:[facility] Start: 01-29-2023 End: 01-29-2023 Patient encounter procedure MALATHI VIEIRA [facility] Start: 01-29-2023 End: 05-05-2023 Recurring MALATHI VIEIRA [facility] Start: 01-26-2023 End: 01-26-2023 Patient encounter procedure MALATHI VIEIRA [facility] [place] Start: 01-26-2023 End: 01-26-2023 ambulatory MALATHI VIEIRA [facility] [employer] Other Start: 01-26-2023 Telephone encounter Hunter brady [facility] Start: 01-20-2023 End: 01-20-2023 ambulatory Hunter Brown Other [facility] Other Start: 01-20-2023 Telephone encounter Hunter brady [facility] Start: 01-12-2023 End: 01-12-2023 ambulatory Hunter Brown Other [facility] Other Start: 01-12-2023 Office outpatient visit 25 minutes Hunter Brown [facility] Start: 01-12-2023 End: 01-12-2023 Patient encounter procedure MD Jacinto Max Work Phone: [facility] Work Phone: Start: 01-11-2023 End: 01-11-2023 ambulatory Gypsy Mcmahon Other [facility] Other Start: 01-11-2023 Telephone encounter Gypsy Mcmahon [facility] Start: 01-05-2023 End: 01-05-2023 ambulatory Gypsy Mcmahon Other [facility] Other Start: 01-05-2023 Telephone encounter Gypsy Mcmahon [facility] Start: 01-05-2023 Transitional care manage srvc 14 day discharge Gypsy Mcmahon [facility] Start: 01-05-2023 End: 01-05-2023 Patient encounter procedure MD Jacinto Max Work Phone: [facility] Work Phone: Start: 12-30-2022 End: 12-30-2022 ambulatory Malathi Hoodmadelinedoug Other [facility] Other Start: 12-30-2022 Telephone encounter Malathi arias [facility] Start: 12-28-2022 End: 12-28-2022 ambulatory Malathi Melania Other [facility] Other Start: 12-28-2022 Office outpatient visit 15 minutes Malathi Melania [facility] Start: 12-28-2022 End: 12-28-2022 Patient encounter procedure MD Jacinto Max Work Phone: [facility] Work Phone: Start: 12-15-2022 End: 12-15-2022 ambulatory Gypsy Mcmahon Other [facility] Other Start: 12-15-2022 Office outpatient visit 15 minutes Gypsy Mcmahon [facility] Start: 12-15-2022 Telephone encounter Gypsy Mcmahon [facility] Start: 12-15-2022 End: 12-15-2022 Patient encounter procedure MD Jacinto Max Work Phone: [facility] Work Phone: Start: 11-11-2022 End: 11-11-2022 ambulatory [facility] Start: 10-29-2022 End: 10-29-2022 ambulatory Hunter Brown Facility:[facility] Start: 09-22-2022 End: 09-22-2022 ambulatory MALATHI VIEIRA Facility:[facility] Start: 09-22-2022 End: 09-22-2022 Patient encounter procedure MALATHI VIEIRA [facility] Start: 09-10-2022 End: 09-10-2022 ambulatory Jose G Ellington Other [facility] Other Start: 09-10-2022 Nursing evaluation o f patient and report Jose G Ellington [facility] Start: 09-08-2022 End: 09-08-2022 ambulatory Hunter Galoormack Other [facility] Other Start: 09-08-2022 Telephone encounter Hunter [facility] Start: 09-01-2022 End: 09-01-2022 ambulatory Gypsy Mcmahon Other [facility] Other Start: 09-01-2022 Office outpatient visit 15 minutes Gypsy Mcmahon [facility] Start: 08-27-2022 End: 08-27-2022 ambulatory Gypsy Mcmahon Other [facility] Other Start: 08-27-2022 Telephone encounter Gypsy Mcmahon [facility] Start: 06-30-2022 End: 06-30-2022 ambulatory AB [facility] Start: 06-09-2022 End: 06-09-2022 Patient encounter procedure Marvin Doug KWON [facility] Start: 05-27-2022 End: 05-28-2022 ambulatory MALATHI VIEIRA Facility: Start: 05-19-2022 End: 05-19-2022 Patient encounter procedure MALATHI VIEIRA [facility] [place] Start: 05-14-2022 End: 05-14-2022 ambulatory Gypsy Mcmahon Other [facility] Other Start: 05-14-2022 Telephone encounter Gypsy Mcmahon [facility] Start: 05-11-2022 End: 05-12-[address] GYPSY MCMAHON Facility:[facility] Start: 05-01-2022 (Televisit) Televisit Gypsy Evangelista [facility] Start: 05-01-2022 End: 05-01-2022 ambulatory Gypsy Mcmahon Other [facility] Other Start: 05-01-2022 Telephone encounter Gypsy Mcmahon [facility] Start: 04-28-2022 End: 04-29-[address] GYPSY MCMAHON Facility:[facility] Start: 04-24-2022 End: 04-24-2022 ambulatory Hunter Brown Other [facility] Other Start: 04-24-2022 Office outpatient visit 15 minutes Hunter Brown [facility] Start: 04-16-2022 End: 04-16-2022 ambulatory Gypsy Mcmahon Other [facility] Other Start: 04-16-2022 Telephone encounter Gypsy Mcmahon [facility] Start: 04-14-2022 End: 04-14-[address] GYPSY MCMAHON Facility:[facility] Start: 04-07-2022 End: 04-07-2022 ambulatory Gypsy Mcmahon Other [facility] Other Start: 04-07-2022 Office outpatient visit 15 minutes Gypsy Mcmahon [facility] Start: 04-03-2022 End: 04-03-2022 ambulatory Gypsy Mcmahon Other [facility] Other Start: 04-03-2022 Telephone encounter Gypsy Mcmahon [facility] Start: 03-30-2022 End: 03-30-2022 Departed Referred MD Gypsy Mcmahon Work Phone: [facility] [place] Work Phone: Start: 03-30-2022 End: 03-30-2022 ambulatory MD Gypsy Mcmahon Work Phone: [facility] Work Phone: Start: 03-30-2022 Nursing evaluation o f patient and report Gypsy Mcmahon [facility] Start: 03-20-2022 End: 03-21-[address] GYPSY MCMAHON Facility:[facility] Start: 03-19-2022 End: 03-19-2022 ambulatory Hunter Brown Other [facility] Other Start: 03-19-2022 Telephone encounter Hunter brady [facility] Start: 03-11-2022 Registered Recurring MD Gypsy Mcmahon Work Phone: [facility] Work Phone: Start: 02-23-2022 End: 02-24-[address] GYPSY MCMAHON Facility:[facility] Start: 02-19-2022 End: 02-19-2022 ambulatory Gypsy Mcmahon Other [facility] Other Start: 02-19-2022 Telephone encounter Gypsy Mcmahon [facility] Start: 02-17-2022 End: 02-18-[address] GYPSY MCMAHON Facility:[facility] Start: 02-16-2022 End: 02-16-2022 ambulatory Gypsy Mcmahon Other [facility] Other Start: 02-16-2022 Office outpatient visit 15 minutes Gypsy Mcmahon [facility] Start: 02-16-2022 End: 02-16-2022 Departed Referred MD Gypsy Mcmahon Work Phone: [facility] [place] Work Phone: Start: 02-11-2022 End: 02-11-2022 ambulatory Hunter Brown Other [facility] Other Start: 02-11-2022 Office outpatient visit 15 minutes Hunter Brown [facility] Start: 02-11-2022 Telephone encounter Hunter brady [facility] Start: 01-26-2022 End: 01-27-[address] GYPSY MCMAHON Facility:[facility] Start: 01-15-2022 End: 01-16-[address] GYPSY MCMAHON Facility:[facility] Start: 01-06-2022 End: 01-06-2022 ambulatory Hunter Brown Other [facility] Other Start: 01-06-2022 Telephone encounter Hunter brady [facility] Start: 01-05-2022 End: 01-06-2022 ambulatory CLAU Shrestha [facility] [employer] Other Start: 01-05-2022 Office outpatient visit 25 minutes Hunter Brown [facility] Start: 12-27-2021 End: 12-27-[address] REY MONTGOMERY Facility:[facility] Start: 12-18-2021 End: 12-19-2021 ambulatory CLAU NASCIMENTO Facility:[facility] Start: 12-08-2021 End: 12-09-[address] GYPSY MCMAHON Facility:[facility] Start: 11-18-2021 End: 11-18-2021 ambulatory Hunter Brown Other [facility] Other Start: 11-18-2021 Telephone encounter Hunter brady [...] 08-18-2021 End: 08-18-2021 ambulatory Giana Griffiths Other [facility] Other Start: 08-18-2021 Telephone encounter Giana Griffiths [facility] G[facility] Start: 08-12-2021 End: 08-12-[address] GYPSY MCMAHON Facility: Start: 04-22-2021 End: 04-22-2021 ambulatory Giana Jfluis Other Rel[facility] Other Start: 04-22-2021 Telephone encounter Giana Jfluis [facility] Start: 03-27-2021 End: 03-27-2021 ambulatory Giana Jian Other [facility] Other Start: 03-27-2021 Office outpatient visit 25 minutes Giana Jfluis [facility] Start: 01-27-2021 End: 01-27-2021 ambulatory Giana Jfluis Other Rel[facility] Other Start: 01-27-2021 Office outpatient visit 25 minutes Giana Jian [facility] Start: 01-27-2021 Telephone encounter Giana Griffiths [facility] Procedures Date Procedure Procedure [...] 03-30-2022 Bacteria identified in Urine by Culture [facility] Bacteria identified in Stool by Culture [facility] Bacteria identified in Urine by Culture [facility] Elastase.pancreatic [Mass/mass] in Stool [facility] Patient referral [facility] Work Phone: [facility] Immunizations Immunization Date Immunization Notes Care Provider Bob henry 02-16-2022 Shingrix 50 MCG/0.5M L; Translations: [Shingrix 50 MCG/0.5ML] Hunter Brown Other [facility] Other 01-15-2022 influenza virus vaccine, unspecified formulation MALATHI VIEIRA [facility] 01-15-2022 SARS-CoV-2 (COVID-19 ) [id number] MALATHI VIEIRA [facility] 01-23-2021 SARS-CoV-2 (COVID-19 ) mRNA BNT-162b2 vax MALATHI DEB [facility] 01-06-2021 influenza virus vaccine, unspecified formulation MALATHI DEB [facility] 03-27-2020 SARS-CoV-2 (COVID-19 ) mRNA BNT-162b2 vax MALATHI DEB [facility] 03-04-2020 SARS-CoV-2 (COVID-19 ) mRNA BNT-162b2 vax MALATHI DEB [facility] 12-06-2019 influenza virus vaccine, unspecified formulation MALATHI DEB [facility] 12-14-2018 influenza virus vaccine, unspecified formulation MALATHI DEB [facility] 02-02-2018 influenza virus vaccine, unspecified formulation MALATHI DEB [facility] 11-08-2017 pneumococcal polysaccharide vaccine, 23 valent MALATHI DEB [facility] 11-02-2017 influenza virus vaccine, unspecified formulation MALATHI DEB [facility] 12-09-2016 influenza virus vaccine, unspecified formulation MALATHI DEB [facility] 12-02-2016 influenza virus vaccine, unspecified formulation MALATHI DEB [facility] 12-17-2015 influenza virus vaccine, unspecified formulation MALATHI DEB [facility] 10-10-2015 influenza virus vaccine, unspecified formulation MALATHI VIEIRA [facility] 11-19-2014 influenza virus vaccine, unspecified formulation MALATHI VIEIRA [facility] 11-09-2014 pneumococcal polysaccharide vaccine, 23 valent MALATHI VIEIRA [facility] NEGATED: Highlighted row has not occurred!01-26-2023 influenza virus vaccine, unspecified formulation MALATHI VIEIRA [facility] Payers Date Payer Category Payer Self-pay [id number] 1958 [facility] [id number] 1958 Medicare [id number] 2.1 [id number] 1936 Unknown [id number] 2.16.84 0.1.596215.3.579.2.593 1936 Unknown [id number] 2.16.84 0.1.514171.3.579.2.593 1936 Unknown [id number] 2.16.84 0.1.421917.3.579.2.593 1936 Unknown [id number] 2.16.84 0.1.116543.3.579.2.593 1936 Unknown [id number] 2.16.84 0.1.098936.3.579.2.593 1936 Unknown [id number] 2.16.84 0.1.943970.3.579.2.593 1936 Unknown [id number] 2.16.84 0.1.386967.3.579.2.593 1936 Unknown [id number] 2.16.84 0.1.018074.3.579.2.593 1936 Unknown [id number] 2.16.84 0.1.604545.3.579.2.593 1936 Unknown [id number] 2.16.84 0.1.200604.3.579.2.593 1936 Unknown [id number] 2.16.84 0.1.752322.3.579.2.593 1936 Unknown [id number] 2.16.84 0.1.591855.3.579.2.593 1936 Unknown [id number] 2.16.84 0.1.335471.3.579.2.593 1936 Unknown [id number] 2.16.84 0.1.845876.3.579.2.593 1936 Unknown [id number] 2.16.84 0.1.578330.3.579.2.593 1936 Unknown [id number] 2.16.84 0.1.170192.3.579.2.593 1936 Unknown [id number] 2.16.84 0.1.665727.3.579.2.593 1936 Unknown [id number] 2.16.84 0.1.124477.3.579.2.593 1936 Unknown [id number] 2.16.84 0.1.029785.3.579.2.593 1936 Unknown [id number] 2.16.84 0.1.756897.3.579.2.593 1936 Unknown [id number] 2.16.84 0.1.456082.3.579.2.593 1936 Unknown [id number] 2.16.8 40.1.468587.3.579.2.1286 1936 Unknown [id number] 2.16.8 40.1.945491.3.579.2.1286 1936 Unknown [id number] 2.16.8 40.1.954696.3.579.2.727 1936 Unknown [id number] 2.16.8 40.1.055213.3.579.2.727 1936 Unknown [id number] 2.16.8 40.1.917054.3.579.2.727 1936 Unknown [id number] 2.16.8 40.1.454539.3.579.2.727 Unknown [id number] 2.16.8 40.1.918814.3.579.2.531 Unknown [id number] 2.16.8 40.1.540414.3.579.2.531 Social History Date Type Detail Facility Unknown if ever smoked [facility] Other Sex Assigned At [facility] Start: 1935 Sex Assigned At Female F [facility] Start: 05-19-2022 End: 06-09-2022 Tobacco smoking status Ex-smoker (finding) [facility] Start: 09-22-2022 Tobacco smoking status Never [facility] Start: 05-05-2023 Tobacco smoking stat [facility] Never smoked tobacco (finding) [facility] Functional Status Date Assessment Result Facility 01-26-2023 Functional Status N/A [facility] 09-22-2022 Functional Status N/A [facility] 06-09-2022 Functional Status N/A [facility] 05-19-2022 Functional Status N/A [facility] Clinical Notes 01-27-2021 to 03-12-2023 Note Date & Type Note Facility 03-12-2023 Evaluation note Encounter Date Diagnosis Assessment Notes Mar, 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 Preventative measures were discussed. Vitamin C blxf-cgf-eivmylp recommended as well as topical Thera workx [...] n due to immunosuppression (ICD-10 - Z91.89) [facility] Other 01-09-2024 Evaluation note* Encounter Date Diagnosis [...] pain. Feb, Pain, unspecified (ICD-10 - R52) [facility] Other 12-19-2023 Hospital Discharge instructions Patient Education 01/26/2023 16:05:17 Urinary Tract Infection, Adult, Mcxz-ez-Lrnj Urinary Tract Infection, Adult A urinary tract [...] Follow these instructions at home: Medicines Take aoog-hcq-zeehfyd and prescription medicines only as told by [...] provider. Document Revised: 09/06/2020 Document Reviewed: 09/06/2020 [employer] Patient Education 2022 [employer]. Follow Up Care 06/09/2022 14:50:19 With:MALATHI VIEIRA PA-C, URL Address: [address] [place] [phone] When: Unknown Comments:f/u in Spring [facility] [place] 12-13-2023 Evaluation note* Encounter Date Diagnosis Assessment Notes Treatment Notes Treatment Clinical Notes Jan, Diarrhea (ICD-10 - R19.7) [facility] Other 12-05-2023 Evaluation note* Encounter Date Diagnosis [...] a day, we will re-test for C-diff [facility] Other 11-28-2023 Evaluation note* Encounter Date Diagnosis Assessment Notes Treatment Notes Treatment Clinical Notes Dec, Clostridium difficile colitis (ICD-10 - A04.72) Finish meds as prescribed. (cipro, Flagyl) Followup w Dr. Brown as scheduled. Understands the c diff could recur. Followup as needed Discussed good nutrition and healthy diet. [facility] Other 11-20-2023 Evaluation note* Encounter Date Diagnosis Assessment Notes Treatment Notes Treatment Clinical Notes Dec, Diarrhea, unspecified type (ICD-10 - R19.7) Pt appears to be having secondary from viral infection. There is no abdominal pain on exam and pt is afebrile which is reassuring. C. diff infection is a possibility as she was recently treated [facility] antibitics for a UTI, will check [...] Pt understands and agrees with the plan. [facility] Other 11-07-2023 Evaluation note* Encounter Date Diagnosis Assessment Notes Treatment Notes Treatment Clinical Notes Dec, Frequent UTI (ICD-10 - N39.0) [facility] Other 11-07-2023 Evaluation note* Encounter Date Diagnosis [...] w Dr. Licea today. Consider PT at [facility] or [facility] Chief Complaint: Patient here for 6 mo follow up CAD, hypertension, and dyslipidemia. She had stress test in July 2022. Labs and ECG were done in Sep 2022. Lipid profile was not completed since last visit. She denies chest pain and SOB. Hasn't been checking her BP at home. HPI: Vincent Hsu is a 87 y.o. female With [...] Rfl: miscellaneous medical supply (Blood Pressure Cuff[place] [facility] 1 kit in the morning and at [...] veins Hypertension - Uncon (more content not included)...[facility]08-15-2023 Hospital Discharge instructions Patient Education 09/22/2022 15:32:53 Urinary Tract Infection, Adult, Wnrs-zk-Tugu Urinary Tract Infection, Adult A urinary tract [...] Follow these instructions at home: Medicines Take zhfw-rfq-lkyvgyx and prescription medicines only as told by [...] provider. Document Revised: 09/06/2020 Document Reviewed: 09/06/2020 [employer] Patient Education 2022 [employer]. Follow Up Care 09/22/2022 10:38:22 With:DEB ZAZUETA, MALATHI Olvera, URL Address: [address] [place] [id number] When: Unknown [facility] 08-03-2023 Evaluation note* Encounter Date Diagnosis Assessment Notes Treatment Notes Treatment Clinical Notes Sep, Dysuria (ICD-10 - R30.0) [facility] Other 08-01-2023 Evaluation note* Encounter Date Diagnosis Assessment Notes Treatment Notes Treatment Clinical Notes Sep, Microscopic colitis, unspecified microscopic colitis type (ICD-10 - K52.839) [facility] Other 07-25-2023 Evaluation note* Encounter Date Diagnosis Assessment Notes Treatment Notes Treatment Clinical Notes Aug, Frequent UTI (ICD-10 - N39.0) Continue estrogen cream. Review with Urology on her followup appt. Discussed causes of UTIs Aug, Lymphocytic colitis (ICD-10 - K52.832) Improved with GI at [facility]. 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 Barry. Reviewed medications and explained their purpose. [facility] Other 07-20-2023 Evaluation note* Encounter Date Diagnosis Assessment Notes Treatment Notes Treatment Clinical Notes Aug, Recurrent UTI (ICD-10 - N39.0) [facility] Chief Complaint: New patient here to establish care for CAD. She has hx of CABG x4 back in 1998. Denies chest pain and SOB. C/o LE edema and leaking . Had MITCH's in Oct 2021. HPI: Vincent Hsu is a 86 y.o. 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 Depending on the risk-benefit ratio will consider starting 1 or the other. She is on Zocor which is not ideal. If her cholesterol is not controlled, would suggest switching her to 40 mg of Lipitor or 20 mg of Crestor. Follow-up in 6 months or sooner should problems arise or her stress test revealed ischemia Jake Barry MD, MPH, [facility], [facility], [facility] Interventional Cardiology Pager Email: [email or web address]05-02-2023 Hospital Discharge instructions Patient Education 06/09/2022 14:15:56 Urinary Tract Infection, Adult, Lvit-xo-Dfcj Urinary Tract Infection, Adult A urinary tract [...] Follow these instructions at home: Medicines Take ilen-koc-qbvappk and prescription medicines only as told by [...] provider. Document Revised: 09/06/2020 Document Reviewed: 09/06/2020 [employer] Patient Education 2022 [employer]. Follow Up Care 06/01/2022 10:03:13 With:CHER KRISHNAN, Marvin Camacho, URL Address: [facility] [address] [place] [phone] When:10/10/2022 [facility] 04-11-2023 Hospital Discharge instructions Patient Education [...] Treatment for this condition includes: Antibiotic medicine. Iiej-sfl-srlxqob medicines to treat discomfort. Drinking enough water [...] Follow these instructions at home: Medicines Take gcwl-ikl-qiizpzc and prescription medicines only as told by [...] 11/04/2005 Document Revised: 01/12/2019 Document Reviewed: 08/04/2018 [employer] Patient Education 2020 [employer]. Follow Up Care 04/20/2022 10:50:51 With:MALATHI VIEIRA PA-C, URL Address: [address] [place] [address] When: Unknown [facility] 04-[facility] Evaluation note* Encounter Date Diagnosis Assessment Notes Treatment Notes Treatment Clinical Notes May, Frequent UTI (ICD-10 - N39.0) [facility] Other 03-24-2023 Evaluation note* Encounter Date Diagnosis [...] back this morning. antibiotic at her pharmacy. [facility] Other 03-17-2023 Evaluation note* Encounter Date Diagnosis Assessment Notes Treatment Notes Treatment Clinical Notes Apr, Lymphocytic colitis (ICD-10 - K52.832) Continue Entyvio as directed Continue Lotronex 0.5 mg 1/2 tablet daily Rto 4 months [facility] Other 03-09-2023 Evaluation note* Encounter Date Diagnosis Assessment Notes Treatment Notes Treatment Clinical Notes Apr, Acute cystitis without hematuria (ICD-10 - N30.00) [facility] Other 02-28-2023 Evaluation note* Encounter Date Diagnosis Assessment Notes Treatment Notes Treatment Clinical Notes Mar, Recurrent UTI (ICD-10 - N39.0) Discussed options. Will try estrogen cream for vaginal health. Denies personal history of female cancers. Will also set up w Urology Mar, Colitis (ICD-10 - K52.9) Further treatment with Dr. Manny freed appt on 04/24 [facility] Other 02-20-2023 Evaluation note* Encounter Date Diagnosis Assessment Notes Treatment Notes Treatment Clinical Notes Mar, Dysuria (ICD-10 - R30.0) [facility] Other 01-09-2023 Evaluation note* Encounter Date Diagnosis Assessment Notes Treatment Notes Treatment Clinical Notes Feb, Acute cystitis without hematuria (ICD-10 - N30.00) Sent to [facility] for urine culture - will treat based on results. Feb, Encounter for immunization (ICD-10 - Z23) Feb, Microscopic colitis, unspecified microscopic colitis type (ICD-10 - K52.839) Keep appt w Dr. Brown. Discussed boost or other supplement to gain weight Feb, Gastric ulcer (ICD-10 - K25.9) Encouraged her to continue pantoprazole [facility] Other 01-04-2023 Evaluation note* Encounter Date Diagnosis Assessment Notes Treatment Notes Treatment Clinical Notes Feb, Lymphocytic colitis (ICD-10 - K52.832) Start Entyvio infusions every 8 weeks Continue Budesonide, Alosetron, Imodium, and Pepto for now until starting Entyvio. Pt to keep record of bowel movements - how many and consistency Follow up in 2 months Feb, Fecal incontinence (ICD-10 - R15.9) [facility] Other 11-28-2022 Evaluation note* Encounter Date Diagnosis [...] Pantoprazole as prescribed Okay to stop Sucralfate Relive Other 09-25-2022 NoteOPERATIVE NOTE OPERATION DATE: 11/04/2021 [...] was taken to PACU in good condition.[facility] 03-27-2021 Evaluation note* Encounter Date Diagnosis Assessment Notes Treatment Notes Treatment Clinical Notes Mar, Microscopic colitis, unspecified microscopic colitis type (ICD-10 - K52.839) INCREASE COLESTIPOL TO 4 TABS AT LUNCHTIME DAILY IF NOT IMPROVED ON HIGHER DOSE PT TO CALL ON 03/31 FOR ALTERNATIVE PLAN Mar, Irritable bowel syndrome with diarrhea (ICD-10 - K58.0) [facility] [employer] Other 12-20-2021 Evaluation note* Encounter Date Diagnosis Assessment Notes Treatment Notes Treatment Clinical Notes Jan, Microscopic colitis, unspecified microscopic colitis type (ICD-10 - K52.839) START COLESIPOL 2 PO DAILY CONTINUE BUDESONIDE WITHOUT CHANGE 3 PO Q AM AND MAYBE CONSIDERING STOP THIS IF COLESTIPOL IS WORKING ENOUGH TO CONTROL HER SYMPTOMS Relive Other 12-20-2021 Evaluation note* Encounter Date Diagnosis Assessment Notes Treatment Notes Treatment Clinical Notes Jan, Microscopic colitis, unspecified microscopic colitis type (ICD-10 - K52.839) Relive Other Evaluation + Plan note No data available for this section [facility] evaluation + Plan note Future Appointments Appointment Date:10/27/2022 01:00:00 PM Scheduled Provider:MALATHI VIEIRA PA-C Location:[facility] Appointment Type:URO Office Visit [facility] Evaluation + Plan note Future Appointments Appointment Date:12/29/2022 01:00:00 PM Scheduled Provider:MALATHI VIEIRA PA-C Location:[facility] Appointment Type:URO Office Visit [facility] evaluation + Plan note Future Appointments Appointment Date:06/15/2023 02:00:00 PM Scheduled Provider:MALATHI VIEIRA PA-C Location:[facility] Appointment Type:URO Office Visit [facility] evaluation + Plan note Future Appointments Appointment Date:01/30/2023 10:30:00 AM Scheduled Provider: Location:[facility] Appointment Type:ASU IV Antibiotic (FT) Appointment Date:01/31/2023 10:30:00 AM Scheduled Provider: Location:[facility] Appointment Type:ASU IV Antibiotic (FT) Appointment Date:02/01/2023 10:30:00 AM Scheduled Provider: [facility] Appointment Type:ASU IV Antibiotic (FT) Appointment Date:02/02/2023 10:30:00 AM Scheduled Provider: Location:[facility] Appointment Type:ASU IV Antibiotic (FT) Appointment Date:02/03/2023 10:30:00 AM Scheduled Provider: Location:[facility] Appointment Type:ASU IV Antibiotic (FT) Appointment Date:02/04/2023 10:30:00 AM Scheduled Provider: Location:[facility] Appointment Type:ASU IV Antibiotic (FT) Appointment Date:06/15/2023 02:00:00 PM Scheduled Provider:MALATHI VIEIRA PA-C Location:[facility] Appointment Type:URO Office Visit [facility] noteNo InformationNorth [place] Other Evaluation noteNo assessment information available [facility] Work Phone: Evaluation note* Diagnosis Onset Date Resolution Status Recurrent Clostridioides difficile diarrhea acute [facility] Work Phone: Evaluation note* Diagnosis Onset Date Resolution Status Recurrent Clostridioides difficile diarrhea acute Diarrhea acute Microscopic colitis acute Recurrent Clostridioides difficile diarrhea acute Recurrent UTI acute [facility] Work Phone: Hisjhhe general Narrative - Reported* Type Description Date Medical History HTN Medical History hyperlipidemia Medical History microscopic colitis Surgical History T&A Surgical History Quad by-pass Surgical History total hysterectomy Surgical History gall bladder Surgical History Cataracts Surgical History Right Knee Scope Surgical History Sphincterectomy Surgical History Left Rotator Scope Surgical History Hernia Repair 03/24/2012 Hospitalization History See Surgical Hx Relive Other [facility] general Narrative - Reported* Type Description Date [...] Hospitalization History See Surgical Hx Hospitalization History [facility] 12/2022 Relive Other [facility] general Narrative - Reported* Type Description Date [...] Hospitalization History See Surgical Hx Hospitalization History [facility] 12/2022 Relive Other [facility] general Narrative - Reported* Type Description Date [...] Hospitalization History See Surgical Hx Hospitalization History [facility] 12/2022 Relive Other History general Narrative - Reported* Type [...] Hospitalization History See Surgical Hx Hospitalization History [facility] 12/2022 Relive Other Hospital Discharge instructions No data available for this section [facility] No data available for this section [facility] Summary Purpose Family History No Family History [...] November 22, 2017 10:57am Hospital Course Note [facility] Discharge Summary PERSON INFORMATION Name VINCENT HSU Age 83 Years 1935 Sex FEMALE Language Mohawk PCP Lisandro KRISHNAN, Gypsy Olvera Marital Status Med Service Med/Surg Acct# Arrival 09/25/2019 06:52:00 Visit Reason SURGERY - LEFT TOTAL HIP Acuity LOS Address: [address] [place] [address] Comment: PROVIDER INFORMATION VITALS INFORMATION Vital Sign [...] cholecalcifero (more content not included)... Note Patient: VINCENT HSU Age: 83 years Sex: FEMALE : [...] Enrike Mora MD Procedure Findings Note Patient: VINCENT HSU Age: 83 years Sex: FEMALE : [...] Recurrent UTI Reason for Referral Reason DUPLICATE [place] office - frequent UTIs. Diagnosis 1 Frequent UTI (N39.0) Referral Organization [facility] Referring Provider First Name Gypsy Referring Provider Last Name Lisandro Referring Provider [facility] kubo financiero Referred [facility] Referred Provider Beau Hernandez Ref[place] Address [address],[place], [place],[address] Referred Provider Specialty Urology Referral Priority Routine General Notes Tatyana Bojorquez 01:56:52 PM >received today Tatyana Bojorquez 05/14/2022 02:02:41 PM >attachments made, notes locked, referral faxed Tatyana Bojorquez 05/14/2022 03:25:50 PM >DUPLICATE REFERRAL Reason *FU 04/28 [place] office - recurrent UTIs. Diagnosis 1 Recurrent UTI (N39.0 ) Referral Organization [facility] Referring Provider First Name Gypsy Referring Provider Last Name Lisandro Referring Provider [facility] kubo financiero [facility] Referred Provider Gerson Juárez Referred Address [address] [place],[address] Referred Provider Specialty Urology Referral Priority Routine General Notes Tatyana Bojorquez 03:40:45 PM >received today, attachments made, waiting for notes to be locked Tatyana Bojorquez 04/10/2022 08:38:22 AM >notes locked, referral faxed Jerome Bojorquezya 04/20/2022 07:51:15 AM >faxed first attempt letter Mekhisaadiayun Tatyana 04/21/2022 07:46:20 AM >received fax that referral was never received. refaxed at this time. Additional Source Comments INFORMATION SOURCE (unrecogn ized section and content) DATE CREATED AUTHOR 09/17/2018 [facility] DATE CREATED AUTHOR AUTHOR'S ORGANIZ ATION 10/30/2019 [facility] DATE CREATED AUTHOR AUTHOR'S ORGANIZ ATION 05/31/2022 [facility] DATE CREATED AUTHOR AUTHOR'S ORGANIZ ATION 11/15/2022 [facility] DATE CREATED AUTHOR AUTHOR'S ORGANIZ ATION 05/30/2023 [facility] DATE CREATED AUTHOR AUTHOR'S ORGANIZ ATION 06/19/2023 [facility] DATE CREATED AUTHOR AUTHOR'S ORGANIZ ATION [facility]20[facility] DATE CREATED AUTHOR AUTHOR'S ORGANIZ ATION 07/29/2023 [facility] REASON FOR VISIT (unrecogniz ed section [...] on alosetron, Patient was recently inpatient at [facility] and was diagnosed with gastric ulcerPRESCRIPTIONPATIENT HERE FOR 1 MONTH FOLLOW UP LYMPHOCYTIC COLITIS.No InformationEntyvioCheck upREFILLUANo Informationurine cultureDISCUSSIONurine culturereferralPATIENT HERE FOR 2 MONTH FOLLOW UPupset stomach, vomiting and diarrheautiurine culturerefillmedication discussREFILLSUA-ConfusionRefillTBHNot Feeling WellUpdateTCWestchester [facility] follow uprecent admissionPatient here for 3 month follow upClinicalC.DiffLegsdizzyNo InformationNo InformationNo Information Care Teams (unrecognized sec tion and content) Team Status: Active Member Role Status Dates Gypsy Mcmahon MD Primary Care Provider Active Team Status: Active Member Role Status Dates Gypsy Mcmahon MD Primary Care Provide r, Attending Provider Active Start: April 06, 2023 Team Status: Inactive Member Role Status Dates Gypsy Mcmahon MD Primary Care Provider Active Start: April 15, 2023 End: April 15, 2023 Jacinto Max MD Attending Provider Active Sta rt: April 15, 2023 End: April 15, 2023 Team Status: Active Member Role Status Dates Gypsy Mcmahon MD Primary Care Provide r, Attending Provider Active Start: May 01, 2023 Team Status: Inactive Member Role Status Valdemar Mcmahon MD Primary Care Provider Active Start: May 05, 2023 End: May 05, 2023 Marvin Garcia DO Emergency Provider Active St art: May 05, 2023 End: May 05, 2023 Team Status: Active Member Role Status Dates Gypsy Mcmahon MD Primary Care Provide r, Attending [...] 2023 Team Status: Active Member Role Status Dates Gypsy Mcmahon MD Primary Care Provide r, Attending [...] Member Role Status Dates Malathi Velázquez APRN INDUSTRIAL MAINTENANCE REPAIRER-C Attending Provider Act jamar Start: December 28, [...] BE BASED ON THE PRIMARY CLINICAL RECORDS. [facility] [employer] [facility]. provides no warranty or guarantee of the accuracy or completeness of information in this document.
[2023-08-10 13:10] LABS: Bilirubin Urine NEGATIVE (NEGATIVE); Blood Urine NEGATIVE (NEGATIVE); Clarity Urine CLEAR (CLEAR); Color Urine LT. YELLOW (YELLOW); Glucose Urine UA NEGATIVE (NEGATIVE); Ketones Urine NEGATIVE (NEGATIVE); Leukocyte Esterase Urine TRACE (NEGATIVE); Nitrite Urine POSITIVE (NEGATIVE); Protein Urine NEGATIVE (NEG/TRACE); Specific Gravity Urine 1.015 (1.005-1.025); Urobilinogen Urine 0.2 EU/dL (0.2-1.0); pH Urine 5.5 (5.0-9.0)
== END 2023-08-10 12:44 | disposition home or self-care (01) ==
LOC: LAB 12:45
PROVIDERS: PCP Family Medicine; Visit Provider Internal Medicine Infectious Disease
DX: N39.0 Urinary tract infection, site not specified (principal)
CPT/HCPCS: 81003; 87086; 87150; 87186

== ENCOUNTER 2023-08-16 04:44 | Emergency (ER) | payer MEDICARE, BC, SELFPAY ==
[2023-08-16 04:48] VITALS: BP 196/71; PULSE 67; TEMP 36.8; O2SAT 96; BMI 18.8
--- OUTSIDE RECORDS SUMMARY | 2023-08-16 04:51 | XMS_ITS | CCD ---
Author Organization [facility] Care Team Providers Care Dispatcher Maintenance Name Role Phone Giana Griffiths Unavailable Hunter Brown Unavailable [phone] MD Gypsy Mcmahon Primary Care Provider [...] GYPSY Olvera Admitting Unavailable MCMAHON, DR GYPSY Olevra Attending Unavailable MCMAHON, DR GYPSY Olvera Consulting [...] REINECK, DR REY Bustamante Consulting Unavailabl e MCMHAON, DR GYPSY Olvera Primary Care Unavailable MCMAHON, [...] Primary Care Unavailable Jose G Ellington Unavailable [facility] Attending Unavailable [place] Attending Unavailable Malathi Velázquez Unavailable MD Jacinto Max Attending Provider MD Jacinto Max Referring Provider MD Gypsy Mcmahon Primary Care Provider [phone] Jacinto Max Unavailable MD Jacinto Max Attending Provider [phone] MD Jacinto Max Referring Provider [phone] MD Gypsy Mcmahon Primary Care Provider TuDO Marvin moreno Emergency Provider MD Gypsy Mcmahon Primary Care Provider [phone] Ly, DO Monie Gastelum Attending Provider [phone] Jacinto Max Admitting Unavailable Jacinto Max Attending [...] Unavailable MCMAHON, GYPSY E Primary Care Unavailable DEBAMLATHI RUBIO E Attending Unavailable DEB, MALATHI E Attending Unavailable DEB, MALATHI E Referring Unavailable DEB, MALATHI E Admitting Unavailable DEB, MALATHI E Attending Unavailable DEB, MALATHI E Attending Unavailable Allergies Allergy Classification Reported Allergen(s) Allergy Type Date of Onset Reaction(s) Facility (20 sources) Promethazine; Translations: [promethazine] Drug Allergy 02-04-20 13 anaphylaxis, Anaphylaxis (disorder) [facility] (20 sources) histamines Drug allergy Unknown curated.by Other (9 sources) Histamine H2 Inhibitors; Translations: [Histamine H2 Inhibitors] Allergy to substance 07-16-19 13 Unknown Reaction [facility] (20 sources) levoFLOXacin; Translations: [levofloxacin] Drug Allergy 07-01-19 23 Tremor (finding) [facility] (1 source) diphenhydrAMINE Drug Allergy 04-20-19 [facility] (1 source) ezetimibe Drug Allergy 04-20-19 20 [facility] (1 source) Gemfibrozil Drug Allergy 04-20-19 [facility] (2 sources) Levamisole; Translations: [Phenergan] Drug Allergy 07-16-19 13 [facility] (1 source) NSAIDs Drug allergy (disorder) 04-20-19 [facility] (1 source) Nasal Decongestant Drug allergy (disorder) 04-20-19 [facility] (1 source) Darvocet-N 100 Drug allergy (disorder) 04-20-19 [facility] (11 sources) diphenhydrAMINE; Translations: [diphenhydramine] Drug Allergy jumpy,, Unknown [facility] (14 sources) Penicillin; Translations: [penicillin] Drug Allergy Eruption of skin (disorder) [facility] (1 source) Histamine; Translations: [HISTAMINE] Drug Allergy 02-04-20 13 [facility] Repository (4 sources) Penicillins; Translations: [Penicillins] Propensity to adverse reactions 02-25-19 24 Rash [facility] (2 sources) Antihistamines Allergy to substance 02-26-19 Unknown Reaction [facility] (1 source) Promethazine Drug Allergy 12-07-19 18 [facility] Medications Current Medications Medication Drug Class(es) [...] capsule (2 sources) Start: 04-15-2023 lactobacillus acidophilus [id number] unt oral tablet (2 sources) take 1 [...] procedure, # 2 cap(s), Refills(s) 0, Pharmacy: [facility]/pharmacy #[id number], 178, cm, 05/19/22 [...] disease (20 sources) 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; Translations: [Coronary [...] 02-04-2022 Chronic Other aftercare (1 source) Other senior living (current) drug therapy; Translations: [OTH [facility] CURRENT DRUG THERAPY] Onset: 03-24-2022 Episodic Other [...] and visceral atherosclerosis (16 sources) 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; Translations: [Atherosclerosis of y[place] de[place] arteries of left leg with ulceration of [...] Onset: 11-02-2021 Episodic Other aftercare (1 source) 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 Comment on above: Order Comment: STAT FOR CT Performed By: #### B ANNE MARIE SHARMA #### [place] [id number] [facility] CT abdomen pelvis w conon CT abdomen pelvis w con [facility] Main [place] [id number] Scan Report Signed Patient: Vincent Hsu MR#: [id number] 4 : 1935 Acct:[id number] Age/Sex: 87 / F ADM Date: 05/28/23 Loc: CT Room: Type: [facility] Attending Dr: Monie Wallace DO Copies to: [...] 1331 Signed By: 05/28/[address] [facility] Creatinineon 05-28-2023 Creatinine [Mass/Vol] 1.07 mg/dL Normal 0.60-1.[address] [facility] Comment on above: Order Comment: STAT FOR CT Performed By: #### B UN, CREAT #### [facility] [address] [place] [address] [place] GFR/1.73 sq M.predicted MDRD (S/P/Bld) [Vol rate/Area] 50.587 mL/min/{1.73_m2} Normal [facility] Comment on above: Order Comment: STAT FOR CT Result Comment: PERF ORMED BY: [place] [address] PATHOLOGIST EXPLOSIVES ENGINEER TIEN VELASQUEZ M.D. Performed By: #### B UN, CREAT #### [facility] [address] [place] [address] Creatinine [Mass/volume] in Serum or PlasmaOrdered By: Monie Wallace on 05-28-2023 Creatinine [Mass/Vol] 1.07 mg/dL 0.60-1.20 [facility] No Panel InformationOrdered By: Monie Wallace on 05-28-2023 Estimated GFR (CKD-EPI) 50.587 mL/Min [facility] Creatinine Clearance (Chem N/A [facility] Urea nitrogen [Mass/volume] in Serum or PlasmaOrdered By: Monie Wallace on 05-28-2023 Urea nitrogen [Mass/Vol] 16 mg/dL 7-25 [facility] No Panel InformationOrdered By: Gypsy Mcmahon on 05-25-2023 E coli Shiga Toxin EIA [facility] Salmonella/Shigella Screen [facility] IgA [Mass/volume] in Serum o r Plasmaon 05-24-2023 IgA [Mass/Vol] 64 mg/dL 64-422 [facility] Comment on above: Performed at: JONEL baron [address] [id number] Director: Salomon Mcarthur PhD, Phone: [phone] No Panel Informationon 05-23 Endomysial IgA Antibody Negative Negative [facility] Serum gliadin peptide IgA an tibody assay (units/volume)on 05-24-2023 Gliadin peptide IgA Qn (S) 4 units 0-19 [facility] Comment on above: Negative 0 - 19 Weak Positive 20 - 30 Moderate to Strong Positive >30 Serum gliadin peptide IgG an tibody assay (units/volume)on 05-24-2023 Gliadin peptide IgG Qn (S) 2 units 0-19 [facility] Comment on above: Negative 0 - 19 Weak Positive 20 - 30 Moderate to Strong Positive >30 Serum tissue transglutaminas e (tTG) IgA antibody assay (units/volume)on 05-24-2023 tTG IgA Qn (S) <2 U/mL 0-3 [facility] Comment on above: Negative 0 - 3 Weak Positive 4 - 10 Positive >10 Tissue Transglutaminase (tTG) has been identified as the endomysial antigen. Studies have demonstr- ated that endomysial IgA antibodies have over 99% specificity for gluten sensitive enteropathy. Serum tissue transglutaminas e (tTG) IgG antibody assay (units/volume)on 05-24-2023 tTG IgG Qn (S) <2 U/mL 0-5 [facility] Comment on above: Negative 0 - 5 Weak Positive 6 - 9 Positive >9 [facility] 05-10-2023 Lab Reports [id number]#1.00TIFF Normal [facility] Lab Reports [id number]#1.00TIFF Normal [facility] Lab Reports [id number]#1.00TIFF Normal [facility] Automated urine specific gra vity by refractometryon 05-06-2023 Specific gravity Refractometry automated (U) [Rel density] 1.025 1.005-1.02 5 [facility] Bilirubin Auto test strip (U ) [Mass/Vol]on 05-06-2023 Bilirubin (U) [Mass/Vol] Negative NEGATIVE [facility] Color Auto (U)on 05-06-2023 Color (U) YELLOW YELLOW [facility] Ketones Auto test strip (U) [Mass/Vol]on 05-06-2023 Ketones (U) [Mass/Vol] Negative NEGATIVE Fi [facility] Lab Reportson 05-06-2023 Lab Reports [id number]#1.00TIFF Normal [facility] - Microbiology an d Antimicrobial susceptibilityOrdered By: Gypsy Mcmahon on 05-06-2023 Bacteria identified Cx Nom (U) [facility] Protein Auto test strip (U) [Mass/Vol]on 05-06-2023 Protein (U) [Mass/Vol] Negative NEG/TRACE Fi [facility] Specific gravity Auto test s trip (U) [Rel density]on 05-06-2023 Specific gravity (U) [Rel density] CLEAR CLEAR [facility] Urine glucose measurement by test strip (mass/volume)on 05-06-2023 Glucose Test strip (U) [Mass/Vol] Negative NEGATIVE [facility] Urine hemoglobin detection b y automated test stripon 05-06-2023 Hemoglobin Auto test strip Ql (U) TRACE-I NEGATIVE [facility] Urine nitrite detection by a utomated test stripon 05-06-2023 Nitrite Auto test strip Ql (U) SMALL NEGATIVE [facility] Nitrite Auto test strip Ql (U) Positive NEGATIVE [facility] Urobilinogen Auto test strip (U) [Mass/Vol]on 05-06-2023 Urobilinogen Qn (U) 0.2 {Gen'U}/dL 0.2-1.0 [facility] pH Auto test strip (U)on pH (U) 5.5 [pH] 5.0-9.0 [facility] No Panel Informationon 04-30 Clostridium difficile (PCR)(LAB) Negative NEGATIVE [facility] No Panel Informationon 04-06 Clostridium difficile (PCR)(LAB) Positive Negative [facility] Comment on above: Toxigenic C difficil e: PositiveEpidemic Strain Bl/NAP1/027: Presumptive NegativePerformed at: CB - [facility] [address] [place], [place] [id number] Director: Salomon Mcarthur PhD, Phone: [phone] IntraOperative Documentson 0 02-12-2023 IntraOperative Documents [id number]#1.00TIFF Normal [facility] Physician Orderon 02-12-2023 Physician Order [id number]#1.00TIFF Normal [facility] Physician Order [id number]#1.00TIFF Normal [facility] ED Note-Physicianon 02-05-20 ED Note-Physician [id number]#1.00TIFF Normal [facility] Lab Reportson 02-04-2023 Lab Reports [id number]#1.00TIFF Normal [facility] Lab Reports [id number]#1.00TIFF Normal [facility] Lab Reports [id number]#1.00TIFF Normal [facility] Consent for Treatmenton 01-09 Consent for Treatment [id number]#1.00TIFF Normal [facility] Retail - Clinical Noteon Retail - Clinical Note [id number]#1.00TIFF Normal [facility] Report[facility] 01-28-2023 Lab Reports [id number]#1.00TIFF Normal [facility] Physician Orderon 01-28-2023 Physician Order [id number]#1.00TIFF Normal [facility] Urology Office/Clinic Noteon 01-27-2023 Urology [...] Urnls Dip Stick Auto w/o Microscopy POC 94543 2. 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 Case discussed w GI, Dr Brown's PHARMACY MANAGER Katie. he agrees w above plan. 3. [...] the risks of side effects etc. Orders: [id number] Measure Post Void residual urine and/or bladder capacity by US- non-imaging Total time spent reviewing previous notes/results/external documents, preparing the chart, conducting the encounter with the patient and family, ordering tests/medications, and documenting the encounter was 40 minutes. Follow-up With When Contact Information MALATHI VIEIRA PA-C, URL [address] [address] [phone] Additional Instructions: f/u in Spring Patient Education Urinary Tract Infection, Adult, Oupa-tz-Ulct Documentation recorded by the scribe Caprice Stratton accurately reflects the services(s) I performed and decisions made by me. Authenticated by Malathi Vieira PA-C on 01/27/2023 13:56:47. I, Caprice Stratton, personally scribed for Malathi Vieira PA-C on (more content not included)... Normal [facility] Comment on above: Result Comment: [...] Urnls Dip Stick Auto w/o Microscopy POC 40961 Your Care Team Attending Physician - MALATHI [...] ZAZUETA, MALATHI Olvera Where: [facility] Patient Educationon 01-27-20 Patient Education Obstetrics [...] these instructions at home: Medicines ? Take rhhg-hfi-lfregge and prescription medicines only as told by [...] provider. Document Revised: 09/06/2020 Document Reviewed: 09/06/2020 [employer] Patient Education ? 2022 [employer]. [facility] Lab Reportson 01-25-2023 Lab Reports [id number]#1.00TIFF [facility] Lab Reports [id number]#1.00TIFF [facility] Lab Reports [id number]#1.00TIFF [facility] Lab Reportson 12-03-2022 Lab Reports [id number]#1.00TIFF [facility] Physician Orderon 12-01-2022 Physician Order [id number]#1.00TIFF [facility] Office Visiton 11-11-2022 Follow-up visit [id number] Vincent Hsu 1935 F Date Provider Department Center 11/11/2022 Kulwinder-JAKE [facility] Family History Problem Relation Age of Onset Aneurysm Mother Heart attack Father Family Status - Relation Status Age at Mother Father Level of Service:38842 SC OFFICE/OUTPATIENT ESTABLISHED LOW MDM 20-29 MIN Normal [facility] Lab Reportson 09-25-2022 Lab Reports [id number]#1.00CD:12 7 Normal [facility] Lab Reports [id number]#1.00CD:12 7 Normal [facility] Physician Orderon 09-23-2022 Physician Order [id number]#1.00CD:12 7 Normal [facility] Screenson 09-23-2022 Screens [id number]#1.00CD:12 7 Normal [facility] Ambulatory Visit Summaryon 0 09-22-2022 [...] PA-C, MALATHI E Where: [facility] [place] [facility] Normal [facility] Patient Educationon 09-23-19 Patient Education [...] these instructions at home: Medicines ? Take gwmx-llr-jfxjerh and prescription medicines only as told by [...] Reviewed: 09/06/2020 Elsevier Patient Education ? 2022 [employer] [facility] Urology Office/Clinic Noteon 09-22-2022 Urology Office/Clinic Note [...] symptoms not resolved. C&S this morning at [facility] ( not finalized) UTI symptoms [...] resolved per daughter. C&S this morning at [facility] (not finalized) - will call [...] up having to send a U.Cx to [facility] so we can review the [...] When Contact Information MALATHI VIEIRA PA-C, URL [address] [place] [address] Additional Instructions: Patient Education Urinary Tract Infection, Adult, Sxjm-ji-Uica IJazlyn, personally scribed for Malathi Vieira PA-C [...] 3 mg (more content not included)... Normal [facility] Comment on above: Result Comment: Elec tronically Signed By: MALATHI VIEIRA PA-C\.br\Date and Time Signed: 09/22/22 16:16 EDT\.br\Electronically Co-Signed By: Jazlyn Lucero\.br\Date and Time Co-Signed: 09/22/22 15:38 EDT Office Visiton 06-30-2022 Follow-up visit [id number] Vincent Hsu 1935 F Date Provider Department Center 06/30/2022 Kulwinder-JA[facility] Family History Problem Relation Age of Onset Aneurysm Mother Heart attack Father Family Status - Relation Status Age at Mother Father Level of Service:20627 SC OFFICE/OUTPATIENT NEW MODERATE MDM 45-59 MINUTES Normal [facility] CT ABD/PELVIS WO CONon 05-27 CT [...] MI NUÑEZ Date: 2022-05-27 10:34 Normal [facility] CULTURE URINEon 05-14-2022 CULTURE URINE [...] Trimethoprim/Sulfamethoxa zole <=20 S F Normal [facility] Comment on above: Performed By: #### U RCX #### [facility] [address] [place], [place] [address] Dr. Anthony Bonilla UA RANDOMon 05-11-2022 Bilirubin Ql (U) Negative Normal NEGATIVE [facility] Comment on above: Performed By: #### U RCX #### [facility] [address] [place], [place] [address] Dr. Anthony Bonilla Clarity (U) SL CLOUDY Abnormal CLEAR [facility] Comment on above: Performed By: #### U RCX #### [facility] [address] [place] [address] [address] Anthony Bonilla Color (U) LT. YELLOW Normal YELLOW [facility] Comment on above: Performed By: #### U RCX #### [facility] [address] [place] [address] [address] Anthony Bonilla Glucose Ql (U) Negative Normal NEGATIVE [facility] Comment on above: Performed By: #### U RCX #### [facility] [address] [place] [address] Dr. Anthony Bonilla Hemoglobin Ql (U) Negative Normal NEGATIVE [facility] Comment on above: Performed By: #### U RCX #### [facility] [address] [place] [address] Dr. Anthony Bonilla Ketones Ql (U) Negative Normal NEGATIVE [facility] Comment on above: Performed By: #### U RCX #### [facility] [address] [place] [address] Dr. Anthony Bonilla LEUKOCYTES MODERATE Abnormal NEGATIVE [facility] Comment on above: Performed By: #### U RCX #### [facility] [address] [place] [address] [address] Anthony Bonilla Nitrite Ql (U) Negative Normal NEGATIVE [facility] Comment on above: Performed By: #### U RCX #### [facility] [address] [place] [address] Dr. Anthony Bonilla pH (U) 5.5 [pH] Normal 5-9 [facility] Comment on above: Performed By: #### U RCX #### [facility] [address] [place] [address] Dr. Anthony Bonilla SPEC GRAVITY 1.020 Normal 1.005-<=1. 025 [facility] Comment on above: Performed By: #### U RCX #### [facility] [address] [place] [address] Dr. Anthony Bonilla UA PROTEIN Negative Normal NEGATIVE/ TRACE [facility] Comment on above: Performed By: #### U RCX #### [facility] [address] [place] [address] Dr. Anthony Bonilla Urobilinogen Qn (U) 0.2 {Gen'U}/dL Normal 0.2 - 1. 0 [facility] Comment on above: Performed By: #### U RCX #### [facility] [address] [place] [address] Dr. Anthony Bonilla CULTURE URINEon 05-01-2022 CULTURE [...] Trimethoprim/Sulfamethoxa zole <=20 S F Normal [facility] Comment on above: Performed By: #### U RCX #### [facility] [address] [place] [address] Dr. Anthony Bonilla CULTURE URINEon 04-16-2022 CULTURE [...] F Nitrofurantoin 64 I F Normal [facility] Comment on above: Performed By: #### U RCX #### [facility] [address] [place] [address] Dr. Anthony Bonilla UA RANDOMon 04-14-2022 Bilirubin Ql (U) Negative Normal NEGATIVE [facility] Comment on above: Performed By: #### U RCX #### [facility] [address] [place] [address] Dr. Anthony Bonilla Clarity (U) CLEAR Normal CLEAR [facility] Comment on above: Performed By: #### U RCX #### [facility] [address] [place] [address] Dr. Anthony Bonilla Color (U) LT. YELLOW Normal YELLOW [facility] Comment on above: Performed By: #### U RCX #### [facility] [address] [place] [address] Dr. Anthony Bonilla Glucose Ql (U) Negative Normal NEGATIVE [facility] Comment on above: Performed By: #### U RCX #### [facility] [address] [place] [address] Dr. Anthony Bonilla Hemoglobin Ql (U) Negative Normal NEGATIVE [facility] Comment on above: Performed By: #### U RCX #### [facility] [address] [place] [address] Dr. Anthony Bonilla Ketones Ql (U) Negative Normal NEGATIVE [facility] Comment on above: Performed By: #### U RCX #### [facility] [address] [place] [address] Dr. Anthony Bonilla LEUKOCYTES MODERATE Abnormal NEGATIVE [facility] Comment on above: Performed By: #### U RCX #### [facility] [address] [place] [address] Dr. Anthony Bonilla Nitrite Ql (U) Negative Normal NEGATIVE [facility] Comment on above: Performed By: #### U RCX #### [facility] [address] [address] [address] Anthony Bonilla pH (U) 5.5 [pH] Normal 5-9 [facility] Comment on above: Performed By: #### U RCX #### [facility] [address] [address] [address] Anthony Bonilla SPEC GRAVITY 1.020 Normal 1.005-<=1. 025 [facility] Comment on above: Performed By: #### U RCX #### [facility] [address] [address] [address] Anthony Bonilla UA PROTEIN Negative Normal NEGATIVE/ TRACE [facility] Comment on above: Performed By: #### U RCX #### [facility] [address] [address] [address] Anthony Bonilla Urobilinogen Qn (U) 0.2 {Gen'U}/dL Normal 0.2 - 1. 0 [facility] Comment on above: Performed By: #### U RCX #### [facility] [address] [address] [address] Anthony Bonilla Urinalysis - DIPSTICKon 03-12 Appearance (U) clear [employer] Other Bilirubin Ql (U) [employer] Other Color (U) dark yellow curated.by Other Glucose Ql (U) Negative [employer] Other Hemoglobin Ql (U) Negative Tier 3 Other Ketones Ql (U) trace [employer] Other Leukocyte esterase Test strip Ql (U) [employer] Other Nitrite Ql (U) Negative [employer] Other pH (U) 5.0 [pH] curated.by Other Protein Ql (U) Negative [employer] Other Specific gravity (U) [Rel density] 1.015 Bib + [facility] [employer] Other Urobilinogen (U) [Mass/Vol] 0.2 mg/dL curated.by Other Urinalysis - DIPSTICK [employer] Other Urine Cultureon 03-30-2022 Urine Culture 10,000 Bib + [facility] Medicine [employer] Other Bacteria identified Cx Nom (U) Bib + [facility] [employer] Other CULTURE URINEon 03-23-2022 CULTURE URINE Isolate 1 Pseudomonas aeruginosa >100,000 cfu/mL of ORGANISM 1 Pseudomonas aeruginosa ANTIBIOTIC M.I.C RX STATUS Piperacillin/Tazobactam 8 S F Ceftazidime 4 S F Imipenem 1 S F Amikacin <=2 S F Gentamicin <=1 S F Tobramycin <=1 S F Ciprofloxacin <=0.25 S F Levofloxacin 0.5 S F Normal [facility] Comment on above: Performed By: #### U RCX #### [facility] [address] [address] [address] Anthony Bonilla CARDIAC DARWIN ADMITon 023 CK [Catalytic activity/Vol] 137 U/L Normal 26-192 [facility] Comment on above: Performed By: #### U RCX #### [facility] [address] [address] [address] Anthony Bonilla CK.MB [Mass/Vol] 1.05 ng/mL Normal <=3.60 [facility] Comment on above: Performed By: #### U RCX #### [facility] [address] [address] [address] Anthony Bonilla HSTROP 17.6 pg/mL Normal 4.0-51.3 [facility] Comment on above: Result Comment: CUT- OFF POINTS HAVE BEEN ESTABLISHED BASED ON THE FOURTH UNIVERSAL DEFINITIONS OF MYOCARDIAL INFARCTION. THE UPPER REFERENCE LIMIT (URL) OF TROPONIN, DEFINED THE 99TH PERCENTILE OF cTnI DISTRIBUTION IN A REFERENCE POPULATION, HAS BEEN CONFIRMED THE DECISION THRESHOLD FOR MA DIAGNOSIS. Performed By: #### U RCX #### [facility] [address] [address] [address] Anthony Bonilla CANDIDA 72 ng/mL Normal 9-82 [facility] Comment on above: Performed By: #### U RCX #### [facility] [address] [place] [address] Dr. Anthony Bonilla CBC AUTO DIFFon 03-20-2022 BASO # 0.0 103/ul Normal 0.0-0.1 [facility] Comment on above: Performed By: #### C BC #### [facility] [address] [place] [address] Dr. Anthony Bonilla Basophils/100 WBC (Bld) 0.3 % Normal 0.2-2.0 [facility] Comment on above: Performed By: #### C BC #### [facility] [address] [place] [address] Dr. Anthony Bonilla EO # 0.0 103/ul Normal 0.0-0.7 [facility] Comment on above: Performed By: #### C BC #### [facility] [address] [place] [address] Dr. Anthony Bonilla Eosinophils/100 WBC (Bld) 0.1 % Critically low 0.9-7.0 [facility] Comment on above: Performed By: #### C BC #### [facility] [address] [place] [address] Dr. Anthony Bonilla Erythrocyte distribution width (RBC) [Ratio] 15.9 % Critically high 11.0-15.0 [facility] Comment on above: Performed By: #### C BC #### [facility] [address] [place] [address] Dr. Anthony Bonilla Hematocrit (Bld) [Volume fraction] 33.6 % Critically low 36.0-48.0 [facility] Comment on above: Performed By: #### C BC #### [facility] [address] [place] [address] Dr. Anthony Bonilla Hemoglobin (Bld) [Mass/Vol] 11.2 g/dL Critically low 12.0-16.0 [facility] Comment on above: Performed By: #### C BC #### [facility] [address] [address] [address] Anthony Bonilla IG # 0.04 10e3/ul Critically high 0.00-0.03 [facility] Comment on above: Performed By: #### C BC #### [facility] [address] [address] [address] Anthony Bonilla IG % 0.3 % Normal 0.0-0.5 [facility] Comment on above: Performed By: #### C BC #### [facility] [address] [place] [address] Dr. Anthony Bonilla LYMPH # 0.8 103/ul Critically low 1.2-3.8 [facility] Comment on above: Performed By: #### C BC #### [facility] [address] [place] [address] Dr. Anthony Bonilla Lymphocytes/100 WBC (Bld) 6.4 % Critically low 20.5-60.0 [facility] Comment on above: Performed By: #### C BC #### [facility] [address] [place] [address] Dr. Anthony Bonilla MANUAL DIFF REQ NO Normal [facility] Comment on above: Performed By: #### C BC #### [facility] [address] [place] [address] Dr. Anthony Bonilla MCH (RBC) [Entitic mass] 28.9 pg Normal 26.7-34.0 [facility] Comment on above: Performed By: #### C BC #### [facility] [address] [place] [address] Dr. Anthony Bonilla MCHC (RBC) [Mass/Vol] 33.3 g/dL Normal 29.9-35.2 [facility] Comment on above: Performed By: #### C BC #### [facility] [address] [place] [address] Dr. Anthony Bonilla MCV (RBC) [Entitic vol] 86.8 fL Normal 81.0-99.0 [facility] Comment on above: Performed By: #### C BC #### [facility] [address] [place] [address] Dr. Anthony Bonilla MONO # 1.1 103/ul Critically high 0.3-0.8 [facility] Comment on above: Performed By: #### C BC #### [facility] [address] [place] [address] Dr. Anthony Bonilla Monocytes/100 WBC (Bld) 8.3 % Normal 1.7-12.0 [facility] Comment on above: Performed By: #### C BC #### [facility] [address] [place] [address] Dr. Anthony Bonilla NEUT # 11.2 103/ul Critically high 1.4-6.5 [facility] Comment on above: Performed By: #### C BC #### [facility] [address] [place] [address] Dr. Anthony Bonilla Neutrophils/100 WBC (Bld) 84.6 % Critically high 43.0-75.0 [facility] Comment on above: Performed By: #### C BC #### [facility] [address] [place] [address] Dr. Anthony Bonilla Platelet mean volume (Bld) [Entitic vol] 9.7 fL Normal 9.5-13.5 [facility] Comment on above: Performed By: #### C BC #### [facility] [address] [place] [address] Dr. Anthony Bonilla PLT 274 103/ul Normal 150-450 [facility] Comment on above: Performed By: #### C BC #### [facility] [address] [place] [address] Dr. Anthony Bonilla RBC 3.87 106/ul Critically low 4.20-5.40 [facility] Comment on above: Performed By: #### C BC #### [facility] [address] [place] [address] Dr. Anthony Bonilla WBC 13.2 103/ul Critically high 4.0-11.0 [facility] Comment on above: Performed By: #### C BC #### [facility] [address] [place] [address] HEAD WO CONon [...] CLAU SHAH Date: 2022-03-20 20:30 Normal [facility] ER URINE PROFILEon 3 Bilirubin Ql (U) Negative Normal NEGATIVE [facility] Comment on above: Performed By: #### C BC #### [facility] [address] [place] [address] Dr. Anthony Bonilla Clarity (U) CLEAR Normal CLEAR [facility] Comment on above: Performed By: #### C BC #### [facility] [address] [place] [address] Dr. Anthony Bonilla Color (U) LT. YELLOW Normal YELLOW [facility] Comment on above: Performed By: #### C BC #### [facility] [address] [place] [address] Dr. Anthony BANGURA A micrscopic examina tion will be performed if indicated. Normal [facility] Comment on above: Performed By: #### C BC #### [facility] [address] [place] [address] Dr. Anthony Bonilla Glucose Ql (U) Negative Normal NEGATIVE [facility] Comment on above: Performed By: #### C BC #### [facility] [address] [place] [address] Dr. Anthony Bonilla Hemoglobin Ql (U) LARGE Abnormal NEGATIVE [facility] Comment on above: Performed By: #### C BC #### [facility] [address] [place] [address] Dr. Anthony Bonilla Ketones Ql (U) Negative Normal NEGATIVE [facility] Comment on above: Performed By: #### C BC #### [facility] [address] [place] [address] Dr. Anthony Bonilla LEUKOCYTES SMALL Abnormal NEGATIVE [facility] Comment on above: Performed By: #### C BC #### [facility] [address] [place] [address] Dr. Anthony Bonilla Nitrite Ql (U) Positive Abnormal NEGATIVE [facility] Comment on above: Performed By: #### C BC #### [facility] [address] [place] [address] Dr. Anthony Bonilla pH (U) 7.0 [pH] Normal 5-9 [facility] Comment on above: Performed By: #### C BC #### [facility] [address] [place] [address] Dr. Anthony Bonilla Protein (U) [Mass/Vol] 30 mg/dL Abnormal NEGAT JAMAR/ TRACE [facility] Comment on above: Performed By: #### C BC #### [facility] [address] [place] [address] Dr. Anthony Bonilla SPEC GRAVITY 1.015 Normal 1.005-<=1. 025 [facility] Comment on above: Performed By: #### C BC #### [facility] [address] [place] [address] Dr. Anthony Bonilla UR MICRO IND INDICATED Normal [facility] Comment on above: Performed By: #### C BC #### [facility] [address] [place] [address] Dr. Anthony Bonilla Urobilinogen Qn (U) 1.0 {Gen'U}/dL Normal 0.2 - 1. 0 [facility] Comment on above: Performed By: #### C BC #### [facility] [address] [place] [address] Dr. Anthony Bonilla PROF 14(COMP METB)on 023 Albumin [Mass/Vol] 3.4 g/dL Normal 3.4-5.0 [facility] Comment on above: Performed By: #### U RCX #### [facility] [address] [place] [address] Dr. Anthony Bonilla Albumin/Globulin [Mass ratio] 1.2 {ratio} Normal [facility] Comment on above: Performed By: #### U RCX #### [facility] [address] [place] [address] Dr. Anthony Bonilla ALP [Catalytic activity/Vol] 26 U/L Critically low 46-116 [facility] Comment on above: Performed By: #### U RCX #### [facility] [address] [place] [address] Dr. Anthony Bonilla ALT [Catalytic activity/Vol] 21 U/L Normal 14-59 [facility] Comment on above: Performed By: #### U RCX #### [facility] [address] [place] [address] Dr. Anthony Bonilla Anion gap [Moles/Vol] 13.7 mmol/L Normal [facility] Comment on above: Performed By: #### U RCX #### [facility] [address] [place] [address] Dr. Anthony Bonilla AST [Catalytic activity/Vol] 20 U/L Normal 15-37 [facility] Comment on above: Performed By: #### U RCX #### [facility] [address] [place] [address] Dr. Anthony Bonilla Bilirubin [Mass/Vol] 1.2 mg/dL Critically high 0.2-1.0 [facility] Comment on above: Performed By: #### U RCX #### [facility] [address] [place] [address] Dr. Anthony Boinlla Calcium [Mass/Vol] 9.4 mg/dL Normal 8.5-10.1 [facility] Comment on above: Performed By: #### U RCX #### [facility] [address] [address] [address] Anthony Bonilla Chloride [Moles/Vol] 99 mmol/L Normal 98-107 [facility] Comment on above: Performed By: #### U RCX #### [facility] [address] [place] [address] Dr. Anthony Bonilla CO2 [Moles/Vol] 29.1 mmol/L Normal 21.0-32.0 [facility] Comment on above: Performed By: #### U RCX #### [facility] [address] [place] [address] Dr. Anthony Bonilla Creatinine [Mass/Vol] 1.02 mg/dL Normal 0.55-1.02 [facility] Comment on above: Performed By: #### U RCX #### [facility] [address] [place] [address] Dr. Anthony Bonilla EGFR-AF MICRONESIAN >60 Normal >=60 [facility] Comment on above: Performed By: #### U RCX #### [facility] [address] [place] [address] Dr. Anthony Bonilla EGFR-NON AF MICRONESIAN 52 mL/min/1.73m2 Critically low >=60 [facility] Comment on above: Performed By: #### U RCX #### [facility] [address] [address] [address] Anthony Bonilla Globulin (S) [Mass/Vol] 2.9 g/dL Normal [facility] Comment on above: Performed By: #### U RCX #### [facility] [address] [place] [address] Dr. Anthony Bonilla Glucose [Mass/Vol] 98 mg/dL Normal 74-106 [facility] Comment on above: Performed By: #### U RCX #### [facility] [address] [place] [address] Dr. Anthony Bonilla Potassium [Moles/Vol] 3.8 mmol/L Normal 3.5-5.1 [facility] Comment on above: Performed By: #### U RCX #### [facility] [address] [place] [address] Dr. Anthony Bonilla Protein [Mass/Vol] 6.3 g/dL Critically low 6.4-8.2 [facility] Comment on above: Performed By: #### U RCX #### [facility] [address] [place] [address] Dr. Anthony Bonilla Sodium [Moles/Vol] 138 mmol/L Normal 136-145 [facility] Comment on above: Performed By: #### U RCX #### [facility] [address] [place] [address] Dr. Anthony Bonilla Urea nitrogen [Mass/Vol] 16.0 mg/dL Normal 7.0-18.0 [facility] Comment on above: Performed By: #### U RCX #### [facility] [address] [place] [address] Dr. Anthony Bonilla Urea nitrogen/Creatinine [Mass ratio] 15.7 mg/mg Normal [facility] Comment on above: Performed By: #### U RCX #### [facility] [address] [place] [address] Dr. Anthony Bonilla URINE MICROSCOPIC ONLYon BACTERIA LARGE Abnormal NONE SEEN [facility] Comment on above: Performed By: #### C BC #### [facility] [address] [place] [address] Dr. Anthony Bonilla Bacteria identified Cx Nom (U) INDICATED Normal [facility] Comment on above: Performed By: #### C BC #### [facility] [address] [place] [address] Dr. Anthony Bonilla CAST NONE SEEN Normal NONE SEEN [facility] Comment on above: Performed By: #### C BC #### [facility] [address] [place] [address] Dr. Anthony Bonilla Crystals LM Nom (Urine sed) NONE SEEN Normal NONE SEEN [facility] Comment on above: Performed By: #### C BC #### [facility] [address] [place] [address] Dr. Anthony Bonilla Epithelial cells LM Ql (Urine sed) FEW Abnormal NONE SEEN /RARE [facility] Comment on above: Performed By: #### C BC #### [facility] [address] [place] [address] Dr. Anthony Bonilla MUCOUS NONE SEEN Normal NONE SEEN [facility] Comment on above: Performed By: #### C BC #### [facility] [address] [place] [address] Dr. Anthony Bonilla RBC 10-20 Abnormal 0-2 [facility] Comment on above: Performed By: #### C BC #### [facility] [address] [place] [address] Dr. Anthony Bonilla WBC 50-75 Abnormal NONE SEEN [facility] Comment on above: Performed By: #### C BC #### [facility] [address] [place] [address] Dr. Anthony Bonilla CALPROTECTIN, FECALon 2022 Calprotectin, Fecal 416 ug/g Critically high 0-120 [facility] Comment on above: Result Comment: Conc entration Interpretation Follow-Up <16 - 50 ug/g Normal None >50 -120 ug/g Borderline Re-evaluate in 4-6 weeks >120 ug/g Abnormal Repeat as clinically indicated Performed By: #### U RCX #### [facility] [address] [place] [address] Dr. Anthony Bonilla QUANTIFERON TB GOLD PLUSon 0 02-19-2022 QuantiFERON Criteria Comment Normal [facility] Comment on above: Result [...] test. Performed By: #### U RCX #### [facility] [address] [place] [address] Dr. Anthony Bonilla QuantiFERON Incubation Incubation performed. Normal [facility] Comment on above: Performed By: #### U RCX #### [facility] [address] [place] [address] Dr. Anthony Bonilla QuantiFERON Mitogen Value >10.00 Normal [facility] Comment on above: Performed By: #### U RCX #### [facility] [address] [place] [address] Dr. Anthony Bonilla QuantiFERON Nil Value 0.07 IU/mL Normal [facility] Comment on above: Performed By: #### U RCX #### [facility] [address] [place] [address] Dr. Anthony Bonilla QuantiFERON TB1 Ag Value 0.08 IU/mL Normal [facility] Comment on above: Performed By: #### U RCX #### [facility] [address] [place] [address] Dr. Anthony Bonilla QuantiFERON TB2 Ag Value 0.07 IU/mL Normal [facility] Comment on above: Performed By: #### U RCX #### [facility] [address] [place] [address] Dr. Anthony Bonilla QuantiFERON-TB Gold Plus Negative Normal Negative [facility] Comment on above: Result Comment: No r esponse to M tuberculosis antigens detected. Infection with M tuberculosis is unlikely, but high risk individuals should be considered for additional testing (ATS/IDSA/CDC Clinical Practice Guidelines, 2017). The reference range is an Antigen minus Nil result of <0.35 IU/mL. Chemiluminescence immunoassay methodology Performed By: #### U RCX #### [facility] [address] [place] [address] Dr. Anthony Bonilla HEP B SURFACE ANTIGEN SCREEN on 02-18-2022 HBsAg Screen Negative Normal Negative [facility] Comment on above: Performed By: #### U RCX #### [facility] [address] [place] [address] Dr. Anthony Bonilla HEPATITIS B CORE, IgMon 02-08 Hep B Core Ab, IgM Negative Normal Negative [facility] Comment on above: Performed By: #### U RCX #### [facility] [address] [place] [address] Dr. Anthony Bonilla HEPATITIS B SURFACE ANTIBODY , QUANTon 02-18-2022 Hepatitis B Surf AB Quant <3.1 Critically low Immunity>9 .9 [facility] Comment on above: Result Comment: Stat us of Immunity Anti-HBs Level Inconsistent with Immunity 0.0 - 9.9 Consistent with Immunity >9.9 Performed By: #### C BC #### [facility] [address] [place] [address] Dr. Anthony Bonilla CBC AUTO DIFFon 02-17-2022 BASO # 0.0 103/ul Normal 0.0-0.1 [facility] Comment on above: Performed By: #### U RCX #### [facility] [address] [place] [address] Dr. Anthony Bonilla Basophils/100 WBC (Bld) 0.4 % Normal 0.2-2.0 [facility] Comment on above: Performed By: #### U RCX #### [facility] [address] [place] [address] Dr. Anthony Bonilla EO # 0.0 103/ul Normal 0.0-0.7 [facility] Comment on above: Performed By: #### U RCX #### [facility] [address] [place] [address] Dr. Anthony Bonilla Eosinophils/100 WBC (Bld) 0.5 % Critically low 0.9-7.0 [facility] Comment on above: Performed By: #### U RCX #### [facility] [address] [place] [address] Dr. Anthony Bonilla Erythrocyte distribution width (RBC) [Ratio] 14.7 % Normal 11.0-15.0 [facility] Comment on above: Performed By: #### U RCX #### [facility] [address] [address] [address] Anthony Bonilla Hematocrit (Bld) [Volume fraction] 33.2 % Critically low 36.0-48.0 [facility] Comment on above: Performed By: #### U RCX #### [facility] [address] [address] [address] Anthony Bonilla Hemoglobin (Bld) [Mass/Vol] 11.0 g/dL Critically low 12.0-16.0 [facility] Comment on above: Performed By: #### U RCX #### [facility] [address] [address] [address] Anthony Bonilla IG # 0.02 10e3/ul Normal 0.00-0.03 [facility] Comment on above: Performed By: #### U RCX #### [facility] [address] [place] [address] Dr. Anthony Bonilla IG % 0.2 % Normal 0.0-0.5 [facility] Comment on above: Performed By: #### U RCX #### [facility] [address] [place] [address] Dr. Anthony Bonilla LYMPH # 1.3 103/ul Normal 1.2-3.8 [facility] Comment on above: Performed By: #### U RCX #### [facility] [address] [place] [address] Dr. Anthony Bonilla Lymphocytes/100 WBC (Bld) 14.8 % Critically low 20.5-60.0 [facility] Comment on above: Performed By: #### U RCX #### [facility] [address] [place] [address] Dr. Anthony Bonilla MANUAL DIFF REQ NO Normal [facility] Comment on above: Performed By: #### U RCX #### [facility] [address] [place] [address] Dr. Anthony Bonilla MCH (RBC) [Entitic mass] 29.0 pg Normal 26.7-34.0 [facility] Comment on above: Performed By: #### U RCX #### [facility] [address] [address] [address] Anthony Bonilla MCHC (RBC) [Mass/Vol] 33.1 g/dL Normal 29.9-35.2 [facility] Comment on above: Performed By: #### U RCX #### [facility] [address] [address] [address] Anthony Bonilla MCV (RBC) [Entitic vol] 87.6 fL Normal 81.0-99.0 [facility] Comment on above: Performed By: #### U RCX #### [facility] [address] [address] [address] Anthony Bonilla MONO # 0.8 103/ul Normal 0.3-0.8 [facility] Comment on above: Performed By: #### U RCX #### [facility] [address] [place] [address] Dr. Anthony Bonilla Monocytes/100 WBC (Bld) 9.6 % Normal 1.7-12.0 [facility] Comment on above: Performed By: #### U RCX #### [facility] [address] [place] [address] Dr. Anthony Bonilla NEUT # 6.3 103/ul Normal 1.4-6.5 [facility] Comment on above: Performed By: #### U RCX #### [facility] [address] [place] [address] Dr. Anthony Bonilla Neutrophils/100 WBC (Bld) 74.5 % Normal 43.0-75.0 [facility] Comment on above: Performed By: #### U RCX #### [facility] [address] [place] [address] Dr. Anthony Bonilla Platelet mean volume (Bld) [Entitic vol] 9.8 fL Normal 9.5-13.5 [facility] Comment on above: Performed By: #### U RCX #### [facility] [address] [place] [address] Dr. Anthony Bonilla PLT 318 103/ul Normal 150-450 [facility] Comment on above: Performed By: #### U RCX #### [facility] [address] [address] [address] Anthony Bonilla RBC 3.79 106/ul Critically low 4.20-5.40 [facility] Comment on above: Performed By: #### U RCX #### [facility] [address] [address] [address] Anthony Bonilla WBC 8.5 103/ul Normal 4.0-11.0 [facility] Comment on above: Performed By: #### U RCX #### [facility] [address] [place] [address] Dr. Anthony Bonilla PROF 14(COMP METB)on 023 Albumin [Mass/Vol] 3.6 g/dL Normal 3.4-5.0 [facility] Comment on above: Performed By: #### U RCX #### [facility] [address] [place] [address] Dr. Anthony Bonilla Albumin/Globulin [Mass ratio] 1.2 {ratio} Normal [facility] Comment on above: Performed By: #### U RCX #### [facility] [address] [address] [address] Anthony Bonilla ALP [Catalytic activity/Vol] 27 U/L Critically low 46-116 [facility] Comment on above: Performed By: #### U RCX #### [facility] [address] [place] [address] Dr. Anthony Bonilla ALT [Catalytic activity/Vol] 21 U/L Normal 14-59 [facility] Comment on above: Performed By: #### U RCX #### [facility] [address] [address] [address] Anthony Bonilla Anion gap [Moles/Vol] 13.5 mmol/L Normal [facility] Comment on above: Performed By: #### U RCX #### [facility] [address] [place] [address] Dr. Anthony Bonilla AST [Catalytic activity/Vol] 19 U/L Normal 15-37 [facility] Comment on above: Performed By: #### U RCX #### [facility] [address] [address] [address] Anthony Bonilla Bilirubin [Mass/Vol] 0.6 mg/dL Normal 0.2-1.0 [facility] Comment on above: Performed By: #### U RCX #### [facility] [address] [address] [address] Anthony Bonilla Calcium [Mass/Vol] 9.2 mg/dL Normal 8.5-10.1 [facility] Comment on above: Performed By: #### U RCX #### [facility] [address] [address] [address] Anthony Bonilla Chloride [Moles/Vol] 104 mmol/L Normal 98-107 [facility] Comment on above: Performed By: #### U RCX #### [facility] [address] [address] [address] Anthony Bonilla CO2 [Moles/Vol] 28.9 mmol/L Normal 21.0-32.0 [facility] Comment on above: Performed By: #### U RCX #### [facility] [address] [address] [address] Anthony Bonilla Creatinine [Mass/Vol] 1.21 mg/dL Critically high 0.55-1.02 [facility] Comment on above: Performed By: #### U RCX #### [facility] [address] [address] [address] Anthony Bonilla EGFR-AF MICRONESIAN 51 mL/min/1.73m2 Critically low >=60 [facility] Comment on above: Performed By: #### U RCX #### [facility] [address] [address] [address] Anthony Bonilla EGFR-NON AF MICRONESIAN 42 mL/min/1.73m2 Critically low >=60 [facility] Comment on above: Performed By: #### U RCX #### [facility] [address] [address] [address] Anthony Bonilla Globulin (S) [Mass/Vol] 3.1 g/dL Normal [facility] Comment on above: Performed By: #### U RCX #### [facility] [address] [address] [address] Anthony Bonilla Glucose [Mass/Vol] 107 mg/dL Critically high 74-106 T [facility] Comment on above: Performed By: #### U RCX #### [facility] [address] [address] [address] Anthony Bonilla Potassium [Moles/Vol] 3.4 mmol/L Critically low 3.5-5.1 [facility] Comment on above: Performed By: #### U RCX #### [facility] [address] [address] [address] Anthony Bonilla Protein [Mass/Vol] 6.7 g/dL Normal 6.4-8.2 [facility] Comment on above: Performed By: #### U RCX #### [facility] [address] [address] [address] Anthony Bonilla Sodium [Moles/Vol] 143 mmol/L Normal 136-145 [facility] Comment on above: Performed By: #### U RCX #### [facility] [address] [address] [address] Anthony Bonilla Urea nitrogen [Mass/Vol] 22.0 mg/dL Critically high 7.0-18.0 [facility] Comment on above: Performed By: #### U RCX #### [facility] [address] [address] [address] Anthony Bonilla Urea nitrogen/Creatinine [Mass ratio] 18.2 mg/mg Normal [facility] Comment on above: Performed By: #### U RCX #### [facility] [address] [address] [address] Anthony Bonilla Automated erythrocytes count in urine sediment (number/area)Ordered By: Gypsy Mcmahon on 02-16-2022 RBC Auto (Urine sed) [#/Area] 0-1 [HPF] 0-4 [facility] Automated leukocytes count i n urine sediment (number/area)Ordered By: Gypsy Mcmahon on 02-16-2022 WBC Auto (Urine sed) [#/Area] 20-49 [HPF] 0-4 [facility] Bilirubin Test strip Ql (U)O rdered By: Gypsy Mcmahon on 02-16-2022 Bilirubin Ql (U) Negative Negative [facility] Color Auto (U)Ordered By: Nicole Mcmahon on 02-16-2022 Color (U) Yellow Yellow [facility] Ketones Auto test strip (U) [Mass/Vol]Ordered By: Gypsy Mcmahon on 02-16-2022 Ketones (U) [Mass/Vol] Trace Negative [facility] - UrinalysisOrder ed By: Gypsy Mcmahon on 02-16-2022 Hyaline casts LM Ql (Urine sed) 9-19 [LPF] 0-8 [facility] Nitrite Test strip Ql (U)Ord ered By: Gypsy Mcmahon on 02-16-2022 Nitrite Ql (U) Positive Negative [facility] Protein Auto test strip (U) [Mass/Vol]Ordered By: Gypsy Mcmahon on 02-16-2022 Protein (U) [Mass/Vol] Negative Negative [facility] Specific gravity Auto test s trip (U) [Rel density]Ordered By: Gypsy Mcmahon on 02-16-2022 Specific gravity (U) [Rel density] 1.018 1.001-1.03 0 [facility] Squamous epithelial cells de tection in urine sediment by light microscopyOrdered By: Gypsy Mcmahon on 02-16-2022 Epithelial cells.squamous LM Ql (Urine sed) 5-9 [HPF] 0-2 [facility] Urine Cultureon 02-16-2022 Urine Culture >100,000 curated.by Other Urine Culture <16 Susceptible BYOM! Other Urine Culture <8/4 Susceptible BYOM! Other Urine Culture <4 Susceptible BYOM! Other Urine Culture <2 Susceptible BYOM! Other Urine Culture <1 Susceptible BYOM! Other Urine Culture <0.25 Susceptible BYOM! Other Urine Culture <0.5 Susceptible BYOM! Other Urine Culture <32 Susceptible BYOM! Other Urine Culture <0.5/9.5 Susceptible BYOM! Other Urine bacteria detection by automated methodOrdered By: Gypsy Mcmahon on 02-16-2022 Bacteria Auto Ql (U) 2+ None Seen [facility] Urine clarity by refractomet ry automatedOrdered By: Gypsy Mcmahon on 02-16-2022 Clarity Refractometry automated (U) Cloudy Clear [facility] Urine culture routineOrdered By: Gypsy Mcmahon on 02-16-2022 Bacteria identified Cx Nom (U) Klebsiella variicola [facility] Urine glucose measurement by automated test strip (mass/volume)Ordered By: Gypsy Mcmahon on 02-16-2022 Glucose Auto test strip (U) [Mass/Vol] Normal mg/dL Normal [facility] Urine hemoglobin detection b y automated test stripOrdered By: Gypsy Mcmahon on 02-16-2022 Hemoglobin Auto test strip Ql (U) Negative Negative [facility] Urine leukocyte esterase det ection by automated test stripOrdered By: Gypsy Mcmahon on 02-16-2022 Leukocyte esterase Auto test strip Ql (U) 2+ Negative [facility] Urobilinogen Auto test strip (U) [Mass/Vol]Ordered By: Gypsy Mcmahon on 02-16-2022 Urobilinogen (U) [Mass/Vol] Normal mg/dL Normal [facility] pH Auto test strip (U)Ordere d By: Gypsy Mcmahon on 02-16-2022 pH (U) 5.5 [pH] 5.0-9.0 [facility] CBC AUTO DIFFon 01-15-2022 BASO # 0.0 103/ul Normal 0.0-0.1 [facility] Comment on above: Performed By: #### C BC #### [facility] [address] [address] [address] Anthony Bonilla Basophils/100 WBC (Bld) 0.5 % Normal 0.2-2.0 [facility] Comment on above: Performed By: #### C BC #### [facility] [address] [place] [address] Dr. Anthony Bonilla EO # 0.1 103/ul Normal 0.0-0.7 [facility] Comment on above: Performed By: #### C BC #### [facility] [address] [place] [address] Dr. Anthony Bonilla Eosinophils/100 WBC (Bld) 0.9 % Normal 0.9-7.0 [facility] Comment on above: Performed By: #### C BC #### [facility] [address] [place] [address] Dr. Anthony Bonilla Erythrocyte distribution width (RBC) [Ratio] 14.8 % Normal 11.0-15.0 [facility] Comment on above: Performed By: #### C BC #### [facility] [address] [place] [address] Dr. Anthoyn Bonilla Hematocrit (Bld) [Volume fraction] 30.3 % Critically low 36.0-48.0 [facility] Comment on above: Performed By: #### C BC #### [facility] [address] [place] [address] Dr. Anthony Bonilla Hemoglobin (Bld) [Mass/Vol] 9.8 g/dL Critically low 12.0-16.0 [facility] Comment on above: Performed By: #### C BC #### [facility] [address] [place] [address] Dr. Anthony Bonilla IG # 0.03 10e3/ul Normal 0.00-0.03 [facility] Comment on above: Performed By: #### C BC #### [facility] [address] [place] [address] Dr. Anthony Bonilla IG % 0.3 % Normal 0.0-0.5 [facility] Comment on above: Performed By: #### C BC #### [facility] [address] [place] [address] Dr. Anthony Bonilla LYMPH # 1.4 103/ul Normal 1.2-3.8 [facility] Comment on above: Performed By: #### C BC #### [facility] [address] [place] [address] Dr. Anthony Bonilla Lymphocytes/100 WBC (Bld) 15.7 % Critically low 20.5-60.0 [facility] Comment on above: Performed By: #### C BC #### [facility] [address] [place] [address] Dr. Anthony Bonilla MANUAL DIFF REQ NO Normal [facility] Comment on above: Performed By: #### C BC #### [facility] [address] [place] [address] Dr. Anthony Bonilla MCH (RBC) [Entitic mass] 30.0 pg Normal 26.7-34.0 [facility] Comment on above: Performed By: #### C BC #### [facility] [address] [place] [address] Dr. Anthony Bonilla MCHC (RBC) [Mass/Vol] 32.3 g/dL Normal 29.9-35.2 [facility] Comment on above: Performed By: #### C BC #### [facility] [address] [place] [address] Dr. Anthony Bonilla MCV (RBC) [Entitic vol] 92.7 fL Normal 81.0-99.0 [facility] Comment on above: Performed By: #### C BC #### [facility] [address] [place] [address] Dr. Anthony Bonilla MONO # 1.1 103/ul Critically high 0.3-0.8 [facility] Comment on above: Performed By: #### C BC #### [facility] [address] [place] [address] Dr. Anthony Bonilla Monocytes/100 WBC (Bld) 12.0 % Normal 1.7-12.0 [facility] Comment on above: Performed By: #### C BC #### [facility] [address] [place] [address] Dr. Anthony Bonilla NEUT # 6.2 103/ul Normal 1.4-6.5 [facility] Comment on above: Performed By: #### C BC #### [facility] [address] [place] [address] Dr. Anthony Bonilla Neutrophils/100 WBC (Bld) 70.6 % Normal 43.0-75.0 [facility] Comment on above: Performed By: #### C BC #### [facility] [address] [place] [address] Dr. Anthony Bonilla Platelet mean volume (Bld) [Entitic vol] 9.8 fL Normal 9.5-13.5 [facility] Comment on above: Performed By: #### C BC #### [facility] [address] [place] [address] Dr. Anthony Bonilla PLT 305 103/ul Normal 150-450 [facility] Comment on above: Performed By: #### C BC #### [facility] [address] [place] [address] Dr. Anthony Bonilla RBC 3.27 106/ul Critically low 4.20-5.40 [facility] Comment on above: Performed By: #### C BC #### [facility] [address] [place] [address] Dr. Anthony Bonilla WBC 8.7 103/ul Normal 4.0-11.0 [facility] Comment on above: Performed By: #### C BC #### [facility] [address] [place] [address] Dr. Anthony Bonilla PROF CHEM 8 (BAS METB)on Anion gap [Moles/Vol] 12.2 mmol/L Normal [facility] Comment on above: Performed By: #### U RCX #### [facility] [address] [place] [address] Dr. Anthony Bonilla Calcium [Mass/Vol] 9.1 mg/dL Normal 8.5-10.1 [facility] Comment on above: Performed By: #### U RCX #### [facility] [address] [place] [address] Dr. Anthony Bonilla Chloride [Moles/Vol] 104 mmol/L Normal 98-107 [facility] Comment on above: Performed By: #### U RCX #### [facility] [address] [place] [address] Dr. Anthony Bonilla CO2 [Moles/Vol] 24.4 mmol/L Normal 21.0-32.0 [facility] Comment on above: Performed By: #### U RCX #### [facility] [address] [address] [address] Anthony Bonilla Creatinine [Mass/Vol] 1.20 mg/dL Critically high 0.55-1.02 [facility] Comment on above: Performed By: #### U RCX #### [facility] [address] [address] [address] Anthony Bonilla EGFR-AF MICRONESIAN 52 mL/min/1.73m2 Critically low >=60 [facility] Comment on above: Performed By: #### U RCX #### [facility] [address] [address] [address] Anthony Bonilla EGFR-NON AF MICRONESIAN 43 mL/min/1.73m2 Critically low >=60 [facility] Comment on above: Performed By: #### U RCX #### [facility] [address] [address] [address] Anthony Bonilla Glucose [Mass/Vol] 81 mg/dL Normal 74-106 [facility] Comment on above: Performed By: #### U RCX #### [facility] [address] [address] [address] Anthony Bonilla Potassium [Moles/Vol] 3.6 mmol/L Normal 3.5-5.1 [facility] Comment on above: Performed By: #### U RCX #### [facility] [address] [address] [address] Anthony Bonilla Sodium [Moles/Vol] 137 mmol/L Normal 136-145 [facility] Comment on above: Performed By: #### U RCX #### [facility] [address] [address] [address] Anthony Bonilla Urea nitrogen [Mass/Vol] 21.0 mg/dL Critically high 7.0-18.0 [facility] Comment on above: Performed By: #### U RCX #### [facility] [address] [address] [address] Anthony Bonilla Urea nitrogen/Creatinine [Mass ratio] 17.5 mg/mg Normal [facility] Comment on above: Performed By: #### U RCX #### [facility] [address] [place] [address] Dr. Anthony Bonilla CULTURE URINEon 12-29-2021 CULTURE [...] Trimethoprim/Sulfamethoxa zole <=20 S F Normal [facility] Comment on above: Performed By: #### U RCX #### [facility] [address] [place] [address] Dr. Anthony Bonilla ER URINE PROFILEon 2 Bilirubin Ql (U) SMALL Abnormal NEGATIVE [facility] Comment on above: Performed By: #### C BC #### [facility] [address] [place] [address] Dr. Anthony Bonilla Clarity (U) SL CLOUDY Abnormal CLEAR [facility] Comment on above: Performed By: #### C BC #### [facility] [address] [place] [address] Dr. Anthony Bonilla Color (U) YELLOW Normal YELLOW [facility] Comment on above: Performed By: #### C BC #### [facility] [address] [place] [address] Dr. Anthony BANGURA A micrscopic examina tion will be performed if indicated. Normal [facility] Comment on above: Performed By: #### C BC #### [facility] [address] [place] [address] Dr. Anthony Bonilla Glucose Ql (U) Negative Normal NEGATIVE [facility] Comment on above: Performed By: #### C BC #### [facility] [address] [place] [address] Dr. Anthony Bonilla Hemoglobin Ql (U) Negative Normal NEGATIVE [facility] Comment on above: Performed By: #### C BC #### [facility] [address] [place] [address] Dr. Anthony Bonilla Ketones Ql (U) TRACE Abnormal NEGATIVE [facility] Comment on above: Performed By: #### C BC #### [facility] [address] [place] [address] Dr. Anthony Bonilla LEUKOCYTES MODERATE Abnormal NEGATIVE [facility] Comment on above: Performed By: #### C BC #### [facility] [address] [place] [address] Dr. Anthony Bonilla Nitrite Ql (U) Positive Abnormal NEGATIVE [facility] Comment on above: Performed By: #### C BC #### [facility] [address] [place] [address] Dr. Anthony Bonilla pH (U) 7.5 [pH] Normal 5-9 [facility] Comment on above: Performed By: #### C BC #### [facility] [address] [place] [address] Dr. Anthony Bonilla Protein (U) [Mass/Vol] 30 mg/dL Abnormal NEGAT JAMAR/ TRACE [facility] Comment on above: Performed By: #### C BC #### [facility] [address] [place] [address] Dr. Anthony Bonilla SPEC GRAVITY 1.020 Normal 1.005-<=1. 025 [facility] Comment on above: Performed By: #### C BC #### [facility] [address] [place] [address] Dr. Anthony Bonilla UR MICRO IND INDICATED Normal [facility] Comment on above: Performed By: #### C BC #### [facility] [address] [place] [address] Dr. Anthony Bonilla Urobilinogen Qn (U) 0.2 {Gen'U}/dL Normal 0.2 - 1. 0 [facility] Comment on above: Performed By: #### C BC #### [facility] [address] [place] [address] Dr. Anthony Bonilla URINE MICROSCOPIC ONLYon BACTERIA TRACE Abnormal NONE SEEN [facility] Comment on above: Performed By: #### C BC #### [facility] [address] [place] [address] Dr. Anthony Bonilla Bacteria identified Cx Nom (U) INDICATED Normal [facility] Comment on above: Performed By: #### C BC #### [facility] [address] [place] [address] Dr. Anthony Bonilla CAST NONE SEEN Normal NONE SEEN [facility] Comment on above: Performed By: #### C BC #### [facility] [address] [place] [address] Dr. Anthony Bonilla Crystals LM Nom (Urine sed) NONE SEEN Normal NONE SEEN [facility] Comment on above: Performed By: #### C BC #### [facility] [address] [place] [address] Dr. Anthony Bonilla Epithelial cells LM Ql (Urine sed) FEW Abnormal NONE SEEN /RARE [facility] Comment on above: Performed By: #### C BC #### [facility] [address] [place] [address] Dr. Anthony Bonilla MUCOUS NONE SEEN Normal NONE SEEN [facility] Comment on above: Performed By: #### C BC #### [facility] [address] [place] [address] Dr. Anthony Bonilla RBC 0-2 Normal 0-2 [facility] Comment on above: Performed By: #### C BC #### [facility] [address] [place] [address] Dr. Anthony Bonilla WBC 5-10 Abnormal NONE SEEN [facility] Comment on above: Performed By: #### C BC #### [facility] [address] [place] [address] Dr. Anthony Bonilla PRBC LEUKOREDUCEDon 11-20-19 PRBC LEUKOREDUCED Cross Match Result Compatible Unit Blood Type A Pos Unit Number [id number] Status Information Transfused Product ID Red Blood Cells Product Code [id number] Normal [facility] Comment on above: Performed By: #### P RBC #### [facility] [address] [place] [address] Dr. Anthony Bonilla CBC AUTO DIFFon 11-10-2021 BASO # 0.0 103/ul Normal 0.0-0.1 [facility] Comment on above: Performed By: #### C BC #### [facility] [address] [place] [address] Dr. Anthony Bonilla Basophils/100 WBC (Bld) 0.7 % Normal 0.2-2.0 [facility] Comment on above: Performed By: #### C BC #### [facility] [address] [place] [address] Dr. Anthony Bonilla EO # 0.2 103/ul Normal 0.0-0.7 [facility] Comment on above: Performed By: #### C BC #### [facility] [address] [place] [address] Dr. Anthony Bonilla Eosinophils/100 WBC (Bld) 2.7 % Normal 0.9-7.0 [facility] Comment on above: Performed By: #### C BC #### [facility] [address] [place] [address] Dr. Anthony Bonilla Erythrocyte distribution width (RBC) [Ratio] 16.3 % Critically high 11.0-15.0 [facility] Comment on above: Performed By: #### C BC #### [facility] [address] [place] [address] Dr. Anthony Bonilla Hematocrit (Bld) [Volume fraction] 29.0 % Critically low 36.0-48.0 [facility] Comment on above: Performed By: #### C BC #### [facility] [address] [place] [address] Dr. Anthony Bonilla Hemoglobin (Bld) [Mass/Vol] 9.4 g/dL Critically low 12.0-16.0 [facility] Comment on above: Performed By: #### C BC #### [facility] [address] [place] [address] Dr. Anthony Bonilla IG # 0.04 10e3/ul Critically high 0.00-0.03 [facility] Comment on above: Performed By: #### C BC #### [facility] [address] [place] [address] Dr. Anthony Bonilla IG % 0.7 % Critically high 0.0-0.5 [facility] Comment on above: Performed By: #### C BC #### [facility] [address] [place] [address] Dr. Anthony Bonilla LYMPH # 1.2 103/ul Normal 1.2-3.8 [facility] Comment on above: Performed By: #### C BC #### [facility] [address] [place] [address] Dr. Anthony Bonilla Lymphocytes/100 WBC (Bld) 21.5 % Normal 20.5-60.0 [facility] Comment on above: Performed By: #### C BC #### [facility] [address] [place] [address] Dr. Anthony Bonilla MANUAL DIFF REQ NO Normal [facility] Comment on above: Performed By: #### C BC #### [facility] [address] [place] [address] Dr. Anthony Bonilla MCH (RBC) [Entitic mass] 32.3 pg Normal 26.7-34.0 [facility] Comment on above: Performed By: #### C BC #### [facility] [address] [place] [address] Dr. Anthony Bonilla MCHC (RBC) [Mass/Vol] 32.4 g/dL Normal 29.9-35.2 [facility] Comment on above: Performed By: #### C BC #### [facility] [address] [place] [address] Dr. Anthony Bonilla MCV (RBC) [Entitic vol] 99.7 fL Critically high 81.0-99.0 [facility] Comment on above: Performed By: #### C BC #### [facility] [address] [place] [address] Dr. Anthony Bonilla MONO # 0.7 103/ul Normal 0.3-0.8 [facility] Comment on above: Performed By: #### C BC #### [facility] [address] [place] [address] Dr. Anthony Bonilla Monocytes/100 WBC (Bld) 12.6 % Critically high 1.7-12.0 [facility] Comment on above: Performed By: #### C BC #### [facility] [address] [place] [address] Dr. Anthony Bonilla NEUT # 3.4 103/ul Normal 1.4-6.5 [facility] Comment on above: Performed By: #### C BC #### [facility] [address] [place] [address] Dr. Anthony Bonilla Neutrophils/100 WBC (Bld) 61.8 % Normal 43.0-75.0 [facility] Comment on above: Performed By: #### C BC #### [facility] [address] [place] [address] Dr. Anthony Bonilla Platelet mean volume (Bld) [Entitic vol] 9.0 fL Critically low 9.5-13.5 [facility] Comment on above: Performed By: #### C BC #### [facility] [address] [place] [place] [address] Dr. Anthony Bonilla PLT 429 103/ul Normal 150-450 [facility] Comment on above: Performed By: #### C BC #### [facility] [address] [place] [address] Dr. Anthony Bonilla RBC 2.91 106/ul Critically low 4.20-5.40 [facility] Comment on above: Performed By: #### C BC #### [facility] [address] [place] [address] Dr. Anthony Bonilla WBC 5.5 103/ul Normal 4.0-11.0 [facility] Comment on above: Performed By: #### C BC #### [facility] [address] [place] [address] Dr. Anthony Bonilla PROF CHEM 8 (BAS METB)on Anion gap [Moles/Vol] 11.0 mmol/L Normal [facility] Comment on above: Performed By: #### B MP #### [facility] [address] [place] [address] Dr. Anthony Bonilla Calcium [Mass/Vol] 9.2 mg/dL Normal 8.5-10.1 [facility] Comment on above: Performed By: #### B MP #### [facility] [address] [place] [address] Dr. Anthony Bnoilla Chloride [Moles/Vol] 107 mmol/L Normal 98-107 [facility] Comment on above: Performed By: #### B MP #### [facility] [address] [place] [address] Dr. Anthony Bonilla CO2 [Moles/Vol] 27.4 mmol/L Normal 21.0-32.0 [facility] Comment on above: Performed By: #### B MP #### [facility] [address] [place] [address] Dr. Anthony Bonilla Creatinine [Mass/Vol] 1.12 mg/dL Critically high 0.55-1.02 [facility] Comment on above: Performed By: #### B MP #### [facility] [address] [place] [address] Dr. Anthony Bonilla EGFR-AF MICRONESIAN 56 mL/min/1.73m2 Critically low >=60 [facility] Comment on above: Performed By: #### B MP #### [facility] [address] [place] [address] Dr. Anthony Bonilla EGFR-NON AF MICRONESIAN 46 mL/min/1.73m2 Critically low >=60 [facility] Comment on above: Performed By: #### B MP #### [facility] [address] [place] [address] Dr. Anthony Bonilla Glucose [Mass/Vol] 89 mg/dL Normal 74-106 [facility] Comment on above: Performed By: #### B MP #### [facility] [address] [place] [address] Dr. Anthony Bonilla Potassium [Moles/Vol] 4.4 mmol/L Normal 3.5-5.1 [facility] Comment on above: Performed By: #### B MP #### [facility] [address] [place] [address] Dr. Anthony Bonilla Sodium [Moles/Vol] 141 mmol/L Normal 136-145 [facility] Comment on above: Performed By: #### B MP #### [facility] [address] [place] [address] Dr. Anthony Bonilla Urea nitrogen [Mass/Vol] 18.0 mg/dL Normal 7.0-18.0 [facility] Comment on above: Performed By: #### B MP #### [facility] [address] [place] [address] Dr. Anthony Bonilla Urea nitrogen/Creatinine [Mass ratio] 16.1 mg/mg Normal [facility] Comment on above: Performed By: #### B MP #### [facility] [address] [place] [address] Dr. Anthony Bonilla CBC AUTO DIFFon 11-04-2021 BASO # 0.0 103/ul Normal 0.0-0.1 [facility] Comment on above: Performed By: #### C BC #### [facility] [address] [place] [address] Dr. Anthony Bonilla Basophils/100 WBC (Bld) 0.2 % Normal 0.2-2.0 [facility] Comment on above: Performed By: #### C BC #### [facility] [address] [place] [address] Dr. Anthony Bonilla EO # 0.1 103/ul Normal 0.0-0.7 [facility] Comment on above: Performed By: #### C BC #### [facility] [address] [place] [address] Dr. Anthony Bonilla Eosinophils/100 WBC (Bld) 0.8 % Critically low 0.9-7.0 [facility] Comment on above: Performed By: #### C BC #### [facility] [address] [place] [address] Dr. Anthony Bonilla Erythrocyte distribution width (RBC) [Ratio] 16.7 % Critically high 11.0-15.0 [facility] Comment on above: Performed By: #### C BC #### [facility] [address] [place] [address] Dr. Anthony Bonilla Hematocrit (Bld) [Volume fraction] 25.6 % Critically low 36.0-48.0 [facility] Comment on above: Performed By: #### C BC #### [facility] [address] [place] [address] Dr. Anthony Bonilla Hemoglobin (Bld) [Mass/Vol] 8.5 g/dL Critically low 12.0-16.0 [facility] Comment on above: Performed By: #### C BC #### [facility] [address] [place] [address] Dr. Anthony Bonilla IG # 0.05 10e3/ul Critically high 0.00-0.03 [facility] Comment on above: Performed By: #### C BC #### [facility] [address] [place] [address] Dr. Anthony Bonilla IG % 0.5 % Normal 0.0-0.5 [facility] Comment on above: Performed By: #### C BC #### [facility] [address] [place] [address] Dr. Anthony Bonilla LYMPH # 0.6 103/ul Critically low 1.2-3.8 [facility] Comment on above: Performed By: #### C BC #### [facility] [address] [place] [address] Dr. Anthony Bonilla Lymphocytes/100 WBC (Bld) 6.2 % Critically low 20.5-60.0 [facility] Comment on above: Performed By: #### C BC #### [facility] [address] [place] [address] Dr. Anthony Bonilla MANUAL DIFF REQ NO Normal [facility] Comment on above: Performed By: #### C BC #### [facility] [address] [place] [address] Dr. Anthony Bonilla MCH (RBC) [Entitic mass] 31.6 pg Normal 26.7-34.0 [facility] Comment on above: Performed By: #### C BC #### [facility] [address] [place] [address] Dr. Anthony Bonilla MCHC (RBC) [Mass/Vol] 33.2 g/dL Normal 29.9-35.2 [facility] Comment on above: Performed By: #### C BC #### [facility] [address] [place] [address] Dr. Anthony Bonilla MCV (RBC) [Entitic vol] 95.2 fL Normal 81.0-99.0 [facility] Comment on above: Performed By: #### C BC #### [facility] [address] [place] [address] Dr. Anthony Bonilla MONO # 0.6 103/ul Normal 0.3-0.8 [facility] Comment on above: Performed By: #### C BC #### [facility] [address] [place] [address] Dr. Anthony Bonilla Monocytes/100 WBC (Bld) 6.1 % Normal 1.7-12.0 [facility] Comment on above: Performed By: #### C BC #### [facility] [address] [place] [address] Dr. Anthony Bonilla NEUT # 8.8 103/ul Critically high 1.4-6.5 [facility] Comment on above: Performed By: #### C BC #### [facility] [address] [place] [address] Dr. Anthony Bonilla Neutrophils/100 WBC (Bld) 86.2 % Critically high 43.0-75.0 [facility] Comment on above: Performed By: #### C BC #### [facility] [address] [place] [address] Dr. Anthony Bonilla Platelet mean volume (Bld) [Entitic vol] 9.8 fL Normal 9.5-13.5 [facility] Comment on above: Performed By: #### C BC #### [facility] [address] [place] [address] Dr. Anthony Bonilla PLT 156 103/ul Normal 150-450 [facility] Comment on above: Performed By: #### C BC #### [facility] [address] [place] [address] Dr. Anthony Bonilla RBC 2.69 106/ul Critically low 4.20-5.40 [facility] Comment on above: Performed By: #### C BC #### [facility] [address] [place] [address] Dr. Anthony Bonilla WBC 10.3 103/ul Normal 4.0-11.0 [facility] Comment on above: Performed By: #### C BC #### [facility] [address] [place] [address] Dr. Anthony Bonilla CULTURE URINEon 11-04-2021 CULTURE [...] F Trimethoprim/Sulfamethoxa zole <=20 S F Normal [facility] Comment on above: Performed By: #### U RCX #### [facility] [address] [place] [address] Dr. Anthony Bonilla PROF CHEM 8 (BAS METB)on Anion gap [Moles/Vol] 12.9 mmol/L Normal [facility] Comment on above: Performed By: #### U RCX #### [facility] [address] [address] [address] Anthony Bonilla Calcium [Mass/Vol] 8.6 mg/dL Normal 8.5-10.1 [facility] Comment on above: Performed By: #### U RCX #### [facility] [address] [address] [address] Anthony Bonilla Chloride [Moles/Vol] 108 mmol/L Critically high 98-107 [facility] Comment on above: Performed By: #### U RCX #### [facility] [address] [place] [address] Dr. Anthony Bonilla CO2 [Moles/Vol] 23.1 mmol/L Normal 21.0-32.0 [facility] Comment on above: Performed By: #### U RCX #### [facility] [address] [address] [address] Anthony Bonilla Creatinine [Mass/Vol] 0.98 mg/dL Normal 0.55-1.02 [facility] Comment on above: Performed By: #### U RCX #### [facility] [address] [place] [address] Dr. Anthony Bonilla EGFR-AF MICRONESIAN >60 Normal >=60 [facility] Comment on above: Performed By: #### U RCX #### [facility] [address] [address] [address] Anthony Bonilla EGFR-NON AF MICRONESIAN 54 mL/min/1.73m2 Critically low >=60 [facility] Comment on above: Performed By: #### U RCX #### [facility] [address] [address] [address] Anthony Bonilla Glucose [Mass/Vol] 86 mg/dL Normal 74-106 [facility] Comment on above: Performed By: #### U RCX #### [facility] [address] [place] [address] Dr. Anthony Bonilla Potassium [Moles/Vol] 4.0 mmol/L Normal 3.5-5.1 [facility] Comment on above: Performed By: #### U RCX #### [facility] [address] [place] [address] Dr. Anthony Bonilla Sodium [Moles/Vol] 140 mmol/L Normal 136-145 [facility] Comment on above: Performed By: #### U RCX #### [facility] [address] [place] [address] Dr. Anthony Bonilla Urea nitrogen [Mass/Vol] 31.0 mg/dL Critically high 7.0-18.0 [facility] Comment on above: Performed By: #### U RCX #### [facility] [address] [place] [address] Dr. Anthony Bonilla Urea nitrogen/Creatinine [Mass ratio] 31.6 mg/mg Normal [facility] Comment on above: Performed By: #### U RCX #### [facility] [address] [place] [address] Dr. Anthony Bonilla CBC AUTO DIFFon 11-03-2021 BASO # 0.0 103/ul Normal 0.0-0.1 [facility] Comment on above: Performed By: #### C BC #### [facility] [address] [place] [address] Dr. Anthony Bonilla Basophils/100 WBC (Bld) 0.3 % Normal 0.2-2.0 [facility] Comment on above: Performed By: #### C BC #### [facility] [address] [place] [address] Dr. Anthony Bonilla EO # 0.1 103/ul Normal 0.0-0.7 [facility] Comment on above: Performed By: #### C BC #### [facility] [address] [place] [address] Dr. Anthony Bonilla Eosinophils/100 WBC (Bld) 0.6 % Critically low 0.9-7.0 [facility] Comment on above: Performed By: #### C BC #### [facility] [address] [place] [address] Dr. Anthony Bonilla Erythrocyte distribution width (RBC) [Ratio] 14.0 % Normal 11.0-15.0 [facility] Comment on above: Performed By: #### C BC #### [facility] [address] [place] [address] Dr. Anthony Bonilla Hematocrit (Bld) [Volume fraction] 23.1 % Critically low 36.0-48.0 [facility] Comment on above: Result Comment: Flui ds given Performed By: #### C BC #### [facility] [address] [place] [address] Dr. Anthony Bonilla Hemoglobin (Bld) [Mass/Vol] 7.6 g/dL Critically low 12.0-16.0 [facility] Comment on above: Performed By: #### C BC #### [facility] [address] [place] [address] Dr. Anthony Bonilla IG # 0.07 10e3/ul Critically high 0.00-0.03 [facility] Comment on above: Performed By: #### C BC #### [facility] [address] [place] [address] Dr. Anthony Bonilla IG % 0.6 % Critically high 0.0-0.5 [facility] Comment on above: Performed By: #### C BC #### [facility] [address] [place] [address] Dr. Anthony Bonilla LYMPH # 0.7 103/ul Critically low 1.2-3.8 [facility] Comment on above: Performed By: #### C BC #### [facility] [address] [place] [address] Dr. Anthony Bonilla Lymphocytes/100 WBC (Bld) 5.7 % Critically low 20.5-60.0 [facility] Comment on above: Performed By: #### C BC #### [facility] [address] [place] [address] Dr. Anthony Bonilla MANUAL DIFF REQ NO Normal [facility] Comment on above: Performed By: #### C BC #### [facility] [address] [place] [address] Dr. Anthony Bonilla MCH (RBC) [Entitic mass] 32.6 pg Normal 26.7-34.0 [facility] Comment on above: Performed By: #### C BC #### [facility] [address] [address] [address] Anthony Bonilla MCHC (RBC) [Mass/Vol] 32.9 g/dL Normal 29.9-35.2 [facility] Comment on above: Performed By: #### C BC #### [facility] [address] [address] [address] Anthony Bonilla MCV (RBC) [Entitic vol] 99.1 fL Critically high 81.0-99.0 [facility] Comment on above: Performed By: #### C BC #### [facility] [address] [place] [address] Dr. Anhtony Bonilla MONO # 0.8 103/ul Normal 0.3-0.8 [facility] Comment on above: Performed By: #### C BC #### [facility] [address] [place] [address] Dr. Anthony Bonilla Monocytes/100 WBC (Bld) 6.8 % Normal 1.7-12.0 [facility] Comment on above: Performed By: #### C BC #### [facility] [address] [place] [address] Dr. Anthony Bonilla NEUT # 9.8 103/ul Critically high 1.4-6.5 [facility] Comment on above: Performed By: #### C BC #### [facility] [address] [place] [address] Dr. Anthony Bonilla Neutrophils/100 WBC (Bld) 86.0 % Critically high 43.0-75.0 [facility] Comment on above: Performed By: #### C BC #### [facility] [address] [address] [address] Anthony Bonilla Platelet mean volume (Bld) [Entitic vol] 9.5 fL Normal 9.5-13.5 [facility] Comment on above: Performed By: #### C BC #### [facility] [address] [place] [address] Dr. Anthony Bonilla PLT 160 103/ul Normal 150-450 [facility] Comment on above: Performed By: #### C BC #### [facility] [address] [place] [address] Dr. Anthony Bonilla RBC 2.33 106/ul Critically low 4.20-5.40 [facility] Comment on above: Performed By: #### C BC #### [facility] [address] [address] [address] Anthony Bonilla WBC 11.4 103/ul Critically high 4.0-11.0 [facility] Comment on above: Performed By: #### C BC #### [facility] [address] [place] [address] Dr. Anthony Bonilla HEMOGLOBIN AND HEMATOCRITon 11-03-2021 Hematocrit (Bld) [Volume fraction] 27.0 % Critically low 36.0-48.0 [facility] Comment on above: Performed By: #### U RCX #### [facility] [address] [place] [address] Dr. Anthony Bonilla Hemoglobin (Bld) [Mass/Vol] 9.1 g/dL Critically low 12.0-16.0 [facility] Comment on above: Performed By: #### U RCX #### [facility] [address] [place] [address] Dr. Anthony Bonilla OCC BLD IMMUNO SCREENon 10-10 OCCULT BLOOD Positive Abnormal NEGATIVE [facility] Comment on above: Performed By: #### C BC #### [facility] [address] [place] [address] Dr. Anthony Bonilla PROF CHEM 8 (BAS METB)on Anion gap [Moles/Vol] 10.7 mmol/L Normal [facility] Comment on above: Performed By: #### C BC #### [facility] [address] [place] [address] Dr. Anthony Bonilla Calcium [Mass/Vol] 8.6 mg/dL Normal 8.5-10.1 [facility] Comment on above: Performed By: #### C BC #### [facility] [address] [address] [address] Anthony Bonilla Chloride [Moles/Vol] 107 mmol/L Normal 98-107 [facility] Comment on above: Performed By: #### C BC #### [facility] [address] [address] [address] Anthony Bonilla CO2 [Moles/Vol] 24.4 mmol/L Normal 21.0-32.0 [facility] Comment on above: Performed By: #### C BC #### [facility] [address] [address] [address] Anthony Bonilla Creatinine [Mass/Vol] 0.98 mg/dL Normal 0.55-1.02 [facility] Comment on above: Performed By: #### C BC #### [facility] [address] [place] [address] Dr. Anthony Bonilla EGFR-AF MICRONESIAN >60 Normal >=60 [facility] Comment on above: Performed By: #### C BC #### [facility] [address] [place] [address] Dr. Anthony Bonilla EGFR-NON AF MICRONESIAN 54 mL/min/1.73m2 Critically low >=60 [facility] Comment on above: Performed By: #### C BC #### [facility] [address] [place] [address] Dr. Anthony Bonilla Glucose [Mass/Vol] 98 mg/dL Normal 74-106 [facility] Comment on above: Performed By: #### C BC #### [facility] [address] [place] [address] Dr. Anthony Bonilla Potassium [Moles/Vol] 4.1 mmol/L Normal 3.5-5.1 [facility] Comment on above: Performed By: #### C BC #### [facility] [address] [place] [address] Dr. Anthony Bonilla Sodium [Moles/Vol] 138 mmol/L Normal 136-145 [facility] Comment on above: Performed By: #### C BC #### [facility] [address] [place] [address] Dr. Anthony Bonilla Urea nitrogen [Mass/Vol] 43.0 mg/dL Critically high 7.0-18.0 [facility] Comment on above: Performed By: #### C BC #### [facility] [address] [place] [address] Dr. Anthony Bonilla Urea nitrogen/Creatinine [Mass ratio] 43.9 mg/mg Normal [facility] Comment on above: Performed By: #### C BC #### [facility] [address] [place] [address] Dr. Anthony Bonilla TYPE AND SCREENon 11-03-2021 TYPE AND SCREEN Negative Normal [facility] Comment on above: Performed By: #### C BC #### [facility] [address] [place] [address] Dr. Anthony Bonilla CBC AUTO DIFFon 11-02-2021 BASO # 0.0 103/ul Normal 0.0-0.1 [facility] Comment on above: Performed By: #### U RCX #### [facility] [address] [place] [address] Dr. Anthony Bonilla Basophils/100 WBC (Bld) 0.3 % Normal 0.2-2.0 [facility] Comment on above: Performed By: #### U RCX #### [facility] [address] [place] [address] Dr. Anthony Bonilla EO # 0.0 103/ul Normal 0.0-0.7 [facility] Comment on above: Performed By: #### U RCX #### [facility] [address] [place] [address] Dr. Anthony Bonilla Eosinophils/100 WBC (Bld) 0.1 % Critically low 0.9-7.0 [facility] Comment on above: Performed By: #### U RCX #### [facility] [address] [place] [address] Dr. Anthony Bonilla Erythrocyte distribution width (RBC) [Ratio] 13.9 % Normal 11.0-15.0 [facility] Comment on above: Performed By: #### U RCX #### [facility] [address] [address] [address] Anthony Bonilla Hematocrit (Bld) [Volume fraction] 31.8 % Critically low 36.0-48.0 [facility] Comment on above: Performed By: #### U RCX #### [facility] [address] [address] [address] Anthony Bonilla Hemoglobin (Bld) [Mass/Vol] 10.5 g/dL Critically low 12.0-16.0 [facility] Comment on above: Performed By: #### U RCX #### [facility] [address] [address] [address] Anthony Bonilla IG # 0.07 10e3/ul Critically high 0.00-0.03 [facility] Comment on above: Performed By: #### U RCX #### [facility] [address] [place] [address] Dr. Anthony Bonilla IG % 0.5 % Normal 0.0-0.5 [facility] Comment on above: Performed By: #### U RCX #### [facility] [address] [address] [address] Anthony Bonilla LYMPH # 0.9 103/ul Critically low 1.2-3.8 [facility] Comment on above: Performed By: #### U RCX #### [facility] [address] [place] [address] Dr. Anthony Bonilla Lymphocytes/100 WBC (Bld) 6.1 % Critically low 20.5-60.0 [facility] Comment on above: Performed By: #### U RCX #### [facility] [address] [address] [address] Anthony Bonilla MANUAL DIFF REQ NO Normal [facility] Comment on above: Performed By: #### U RCX #### [facility] [address] [address] [address] Anthony Bonilla MCH (RBC) [Entitic mass] 32.7 pg Normal 26.7-34.0 [facility] Comment on above: Performed By: #### U RCX #### [facility] [address] [address] [address] Anthony Bonilla MCHC (RBC) [Mass/Vol] 33.0 g/dL Normal 29.9-35.2 [facility] Comment on above: Performed By: #### U RCX #### [facility] [address] [address] [address] Anthony Bonilla MCV (RBC) [Entitic vol] 99.1 fL Critically high 81.0-99.0 [facility] Comment on above: Performed By: #### U RCX #### [facility] [address] [address] [address] Anthony Bonilla MONO # 1.0 103/ul Critically high 0.3-0.8 [facility] Comment on above: Performed By: #### U RCX #### [facility] [address] [place] [address] Dr. Anthony Bonilla Monocytes/100 WBC (Bld) 6.8 % Normal 1.7-12.0 [facility] Comment on above: Performed By: #### U RCX #### [facility] [address] [address] [address] Anthony Bonilla NEUT # 12.1 103/ul Critically high 1.4-6.5 [facility] Comment on above: Performed By: #### U RCX #### [facility] [address] [address] [address] Anthony Bonilla Neutrophils/100 WBC (Bld) 86.2 % Critically high 43.0-75.0 [facility] Comment on above: Performed By: #### U RCX #### [facility] [address] [address] [address] Anthony Bonilla Platelet mean volume (Bld) [Entitic vol] 9.8 fL Normal 9.5-13.5 [facility] Comment on above: Performed By: #### U RCX #### [facility] [address] [address] [address] Anthony Bonilla PLT 175 103/ul Normal 150-450 [facility] Comment on above: Performed By: #### U RCX #### [facility] [address] [address] [address] Anthony Bonilla RBC 3.21 106/ul Critically low 4.20-5.40 [facility] Comment on above: Performed By: #### U RCX #### [facility] [address] [place] [id number] Dr. Anthony Bonilla WBC 14.0 103/ul Critically high 4.0-11.0 [facility] Comment on above: Performed By: #### U RCX #### [facility] [address] [place], [place] [id number] Dr. Anthony Bonilla CT HEAD WO CONon [...] HERNANDO HAMLIN Date: 2021-11-01 22:36 Normal [facility] PROF CHEM 8 (BAS METB)on Anion gap [Moles/Vol] 12.2 mmol/L Normal [facility] Comment on above: Performed By: #### C BC #### [facility] [address] [place] [address] Dr. Anthony Bonilla Calcium [Mass/Vol] 8.7 mg/dL Normal 8.5-10.1 [facility] Comment on above: Performed By: #### C BC #### [facility] [address] [place] [address] Dr. Anthony Bonilla Chloride [Moles/Vol] 103 mmol/L Normal 98-107 [facility] Comment on above: Performed By: #### C BC #### [facility] [address] [address] [address] Anthony Bonilla CO2 [Moles/Vol] 25.7 mmol/L Normal 21.0-32.0 [facility] Comment on above: Performed By: #### C BC #### [facility] [address] [address] [address] Anthony Bonilla Creatinine [Mass/Vol] 1.08 mg/dL Critically high 0.55-1.02 [facility] Comment on above: Performed By: #### C BC #### [facility] [address] [place] [address] Dr. Anthony Bonilla EGFR-AF MICRONESIAN 58 mL/min/1.73m2 Critically low >=60 [facility] Comment on above: Performed By: #### C BC #### [facility] [address] [place] [address] Dr. Anthony Bonilla EGFR-NON AF MICRONESIAN 48 mL/min/1.73m2 Critically low >=60 [facility] Comment on above: Performed By: #### C BC #### [facility] [address] [place] [address] Dr. Anthony Bonilal Glucose [Mass/Vol] 84 mg/dL Normal 74-106 [facility] Comment on above: Performed By: #### C BC #### [facility] [address] [place] [address] Dr. Anthony Bonilla Potassium [Moles/Vol] 4.9 mmol/L Normal 3.5-5.1 [facility] Comment on above: Performed By: #### C BC #### [facility] [address] [address] [address] Anthony Bonilla Sodium [Moles/Vol] 136 mmol/L Normal 136-145 [facility] Comment on above: Performed By: #### C BC #### [facility] [address] [address] [address] Anthony Bonilla Urea nitrogen [Mass/Vol] 33.0 mg/dL Critically high 7.0-18.0 [facility] Comment on above: Performed By: #### C BC #### [facility] [address] [address] [address] Anthony Bonilla Urea nitrogen/Creatinine [Mass ratio] 30.6 mg/mg Normal [facility] Comment on above: Performed By: #### C BC #### [facility] [id number] Anthony Bonilla XR CHEST 1 Von [...] GIANA HOLLY Date: 2021-11-01 22:05 Normal [facility] CARDIAC DARWIN ADMITon 022 CK [Catalytic activity/Vol] 92 U/L Normal 26-192 [facility] Comment on above: Performed By: #### C BC #### [facility] [address] [place] [address] Dr. Anthony Bonilla CK.MB [Mass/Vol] 1.73 ng/mL Normal <=3.60 [facility] Comment on above: Performed By: #### C BC #### [facility] [address] [place] [address] Dr. Anthony Bonilla HSTROP 20.0 pg/mL Normal 4.0-51.3 [facility] Comment on above: Result Comment: CUT- OFF POINTS HAVE BEEN ESTABLISHED BASED ON THE FOURTH UNIVERSAL DEFINITIONS OF MYOCARDIAL INFARCTION. THE UPPER REFERENCE LIMIT (URL) OF TROPONIN, DEFINED THE 99TH PERCENTILE OF cTnI DISTRIBUTION IN A REFERENCE POPULATION, HAS BEEN CONFIRMED THE DECISION THRESHOLD FOR MA DIAGNOSIS. Performed By: #### C BC #### [facility] [address] [place] [address] Dr. Anthony Bonilla CANDIDA 58 ng/mL Normal 9-82 [facility] Comment on above: Performed By: #### C BC #### [facility] [address] [address] [address] Anthony Bonilla CBC AUTO DIFFon 11-01-2021 BASO # 0.0 103/ul Normal 0.0-0.1 [facility] Comment on above: Performed By: #### U RCX #### [facility] [address] [address] [address] Anthony Bonilla Basophils/100 WBC (Bld) 0.2 % Normal 0.2-2.0 [facility] Comment on above: Performed By: #### U RCX #### [facility] [address] [place] [address] Dr. Anthony Bonilla EO # 0.0 103/ul Normal 0.0-0.7 [facility] Comment on above: Performed By: #### U RCX #### [facility] [address] [place] [address] Dr. Anthony Bonilla Eosinophils/100 WBC (Bld) 0.0 % Critically low 0.9-7.0 [facility] Comment on above: Performed By: #### U RCX #### [facility] [address] [place] [address] Dr. Anthony oBnilla Erythrocyte distribution width (RBC) [Ratio] 14.1 % Normal 11.0-15.0 [facility] Comment on above: Performed By: #### U RCX #### [facility] [address] [place] [address] Dr. Anthony Bonilla Hematocrit (Bld) [Volume fraction] 36.0 % Normal 36.0-48.0 [facility] Comment on above: Performed By: #### U RCX #### [facility] [address] [address] [address] Anthony Bonilla Hemoglobin (Bld) [Mass/Vol] 12.1 g/dL Normal 12.0-16.0 [facility] Comment on above: Performed By: #### U RCX #### [facility] [address] [place] [address] Dr. Anthony Bonilla IG # 0.11 10e3/ul Critically high 0.00-0.03 [facility] Comment on above: Performed By: #### U RCX #### [facility] [address] [address] [address] Anthony Bonilla IG % 0.5 % Normal 0.0-0.5 [facility] Comment on above: Performed By: #### U RCX #### [facility] [address] [address] [address] Anthony Bonilla LYMPH # 0.7 103/ul Critically low 1.2-3.8 [facility] Comment on above: Performed By: #### U RCX #### [facility] [address] [address] [address] Anthony Bonilla Lymphocytes/100 WBC (Bld) 3.2 % Critically low 20.5-60.0 [facility] Comment on above: Performed By: #### U RCX #### [facility] [address] [address] [address] Anthony Bonilla MANUAL DIFF REQ NO Normal [facility] Comment on above: Performed By: #### U RCX #### [facility] [address] [address] [address] Anthony Bonilla MCH (RBC) [Entitic mass] 33.0 pg Normal 26.7-34.0 [facility] Comment on above: Performed By: #### U RCX #### [facility] [address] [address] [address] Anthony Bonilla MCHC (RBC) [Mass/Vol] 33.6 g/dL Normal 29.9-35.2 [facility] Comment on above: Performed By: #### U RCX #### [facility] [address] [address] [address] Anthony Bonilla MCV (RBC) [Entitic vol] 98.1 fL Normal 81.0-99.0 [facility] Comment on above: Performed By: #### U RCX #### [facility] [address] [address] [address] Anthony Bonilla MONO # 1.1 103/ul Critically high 0.3-0.8 [facility] Comment on above: Performed By: #### U RCX #### [facility] [address] [place] [address] Dr. Anthony Bonilla Monocytes/100 WBC (Bld) 4.8 % Normal 1.7-12.0 [facility] Comment on above: Performed By: #### U RCX #### [facility] [address] [place] [address] Dr. Anthony Bonilla NEUT # 20.3 103/ul Critically high 1.4-6.5 [facility] Comment on above: Performed By: #### U RCX #### [facility] [address] [place] [address] Dr. Anthony Bonilla Neutrophils/100 WBC (Bld) 91.3 % Critically high 43.0-75.0 [facility] Comment on above: Performed By: #### U RCX #### [facility] [address] [place] [address] Dr. Anthony Bonilla Platelet mean volume (Bld) [Entitic vol] 10.8 fL Normal 9.5-13.5 [facility] Comment on above: Performed By: #### U RCX #### [facility] [address] [place] [address] Dr. Anthony Bonilla PLT 179 103/ul Normal 150-450 [facility] Comment on above: Performed By: #### U RCX #### [facility] [address] [place] [address] Dr. Anthony Bonilla RBC 3.67 106/ul Critically low 4.20-5.40 [facility] Comment on above: Performed By: #### U RCX #### [facility] [address] [place] [address] Dr. Anthony Bonilla WBC 22.2 103/ul Critically high 4.0-11.0 [facility] Comment on above: Performed By: #### U RCX #### [facility] [address] [place] [address] Dr. Anthony Bonilla CULTURE BLOODon 11-01-2021 Microscopic examination of blood, culture Culture Observations: NO GROWTH AT 5 DAYS. Normal [facility] Comment on above: Performed By: #### B LDCX2 #### [facility] [address] [place] [address] Dr. Anthony Bonilla Performed By: #### C BC #### [facility] [address] [place] [address] Dr. Anthony Bonilla Covid-19 PCR ([facility])on 10-10 SARS-CoV-2 (COVID-19) RNA OH+probe Ql (Unsp spec) Detected Critically abnormal NOT DETECTED [facility] Comment on above: Result Comment: This test is not yet approved or cleared by the [place] FDA. When there are no FDA-approved or cleared tests available, and other criteria are met, FDA can make tests available under an emergency access mechanism called an Emergency Use Authorization (EUA). The EUA for this test is supported by the Resource Protection Specialist of Health and Human Service's declaration that [...] used). Performed By: #### C BC #### [facility] [address] [place] [address] Dr. Anthony Bonilla ER URINE PROFILEon Bilirubin Ql (U) Negative Normal NEGATIVE [facility] Comment on above: Performed By: #### U RCX #### [facility] [address] [place] [address] Dr. Anthony Bonilla Clarity (U) CLEAR Normal CLEAR [facility] Comment on above: Performed By: #### U RCX #### [facility] [address] [place] [address] Dr. Anthony Bonilla Color (U) LT. YELLOW Normal YELLOW [facility] Comment on above: Performed By: #### U RCX #### [facility] [address] [place] [address] Dr. Anthony Bonilla ERUAHD A micrscopic examina tion will be performed if indicated. Normal [facility] Comment on above: Performed By: #### U RCX #### [facility] [address] [place] [address] Dr. Anthony Bonilla Glucose Ql (U) Negative Normal NEGATIVE [facility] Comment on above: Performed By: #### U RCX #### [facility] [address] [place] [address] Dr. Anthony Bonilla Hemoglobin Ql (U) TRACE-INTACT Abnormal NEGATIVE [facility] Comment on above: Performed By: #### U RCX #### [facility] [address] [place] [address] Dr. Anthony Bonilla Ketones Ql (U) Negative Normal NEGATIVE [facility] Comment on above: Performed By: #### U RCX #### [facility] [address] [place] [address] Dr. Anthony Bonilla LEUKOCYTES Negative Normal NEGATIVE [facility] Comment on above: Performed By: #### U RCX #### [facility] [address] [place] [address] Dr. Anthony Bonilla Nitrite Ql (U) Negative Normal NEGATIVE [facility] Comment on above: Performed By: #### U RCX #### [facility] [address] [place] [address] Dr. Anthony Bonilla pH (U) 6.0 [pH] Normal 5-9 [facility] Comment on above: Performed By: #### U RCX #### [facility] [address] [place] [address] Dr. Anthony Bonilla SPEC GRAVITY 1.020 Normal 1.005-<=1. 025 [facility] Comment on above: Performed By: #### U RCX #### [facility] [address] [place] [address] Dr. Anthony Bonilla UA PROTEIN Negative Normal NEGATIVE/ TRACE [facility] Comment on above: Performed By: #### U RCX #### [facility] [address] [place] [address] Dr. Anthony Bonilla UR MICRO IND INDICATED Normal [facility] Comment on above: Performed By: #### U RCX #### [facility] [address] [place] [address] Dr. Anthony Bonilla Urobilinogen Qn (U) 1.0 {Gen'U}/dL Normal 0.2 - 1. 0 [facility] Comment on above: Performed By: #### U RCX #### [facility] [address] [place] [address] Dr. Anthony Bonilla LACTATE/LACTIC ACIDon 2021 Lactate [Moles/Vol] 1.6 mmol/L Normal 0.4-1.9 [facility] Comment on above: Performed By: #### C BC #### [facility] [address] [place] [address] Dr. Anthony Bonilla PROF 14(COMP METB)on 022 Albumin [Mass/Vol] 3.2 g/dL Critically low 3.4-5.0 [facility] Comment on above: Performed By: #### C BC #### [facility] [address] [place] [address] Dr. Anthony Bonilla Albumin/Globulin [Mass ratio] 0.9 {ratio} Normal [facility] Comment on above: Performed By: #### C BC #### [facility] [address] [place] [address] Dr. Anthony Bonilla ALP [Catalytic activity/Vol] 26 U/L Critically low 46-116 [facility] Comment on above: Performed By: #### C BC #### [facility] [address] [place] [address] Dr. Anthony Bonilla ALT [Catalytic activity/Vol] 32 U/L Normal 14-59 [facility] Comment on above: Performed By: #### C BC #### [facility] [address] [place] [address] Dr. Anthony Bonilla Anion gap [Moles/Vol] 11.5 mmol/L Normal [facility] Comment on above: Performed By: #### C BC #### [facility] [address] [place] [address] Dr. Anthony Bonilla AST [Catalytic activity/Vol] 16 U/L Normal 15-37 [facility] Comment on above: Performed By: #### C BC #### [facility] [address] [address] [address] Anthony Bonilla Bilirubin [Mass/Vol] 1.2 mg/dL Critically high 0.2-1.0 [facility] Comment on above: Performed By: #### C BC #### [facility] [address] [address] [address] Anthony Bonilla Calcium [Mass/Vol] 9.0 mg/dL Normal 8.5-10.1 [facility] Comment on above: Performed By: #### C BC #### [facility] [address] [address] [address] Anthony Bonilla Chloride [Moles/Vol] 102 mmol/L Normal 98-107 [facility] Comment on above: Performed By: #### C BC #### [facility] [address] [address] [address] Anthony Bonilla CO2 [Moles/Vol] 25.2 mmol/L Normal 21.0-32.0 [facility] Comment on above: Performed By: #### C BC #### [facility] [address] [address] [address] Anthony Bonilla Creatinine [Mass/Vol] 1.25 mg/dL Critically high 0.55-1.02 [facility] Comment on above: Performed By: #### C BC #### [facility] [address] [address] [address] Anthony Bonilla EGFR-AF MICRONESIAN 49 mL/min/1.73m2 Critically low >=60 [facility] Comment on above: Performed By: #### C BC #### [facility] [address] [address] [address] Anthony Bonilla EGFR-NON AF MICRONESIAN 41 mL/min/1.73m2 Critically low >=60 [facility] Comment on above: Performed By: #### C BC #### [facility] [address] [address] [address] Anthony Bonilla Globulin (S) [Mass/Vol] 3.4 g/dL Normal [facility] Comment on above: Performed By: #### C BC #### [facility] [address] [address] [address] Anthony Bonilla Glucose [Mass/Vol] 102 mg/dL Normal 74-106 [facility] Comment on above: Performed By: #### C BC #### [facility] [address] [address] [address] Anthony Bonilla Potassium [Moles/Vol] 4.7 mmol/L Normal 3.5-5.1 [facility] Comment on above: Performed By: #### C BC #### [facility] [address] [address] [address] Anthony Bonilla Protein [Mass/Vol] 6.6 g/dL Normal 6.4-8.2 [facility] Comment on above: Performed By: #### C BC #### [facility] [address] [address] [address] Anthony Bonilla Sodium [Moles/Vol] 134 mmol/L Critically low 136-145 [facility] Comment on above: Performed By: #### C BC #### [facility] [address] [address] [address] Anthony Bonilla Urea nitrogen [Mass/Vol] 33.0 mg/dL Critically high 7.0-18.0 [facility] Comment on above: Performed By: #### C BC #### [facility] [address] [address] [address] Anthony Bonilla Urea nitrogen/Creatinine [Mass ratio] 26.4 mg/mg Normal [facility] Comment on above: Performed By: #### C BC #### [facility] [address] [address] [address] Anthony Bonilla PROTIMEon 11-01-2021 INR Coag (PPP) [Relative time] 0.97 {INR} Normal [facility] Comment on above: Performed By: #### U RCX #### [facility] [address] [address] [address] Anthony Bonilla INR GUIDELINES SEE BELOW Normal [facility] Comment on above: Result Comment: MEGAN RED INR: 2.0 - 3.0 CONDITIONS NOT LISTED BELOW 2.5 - 3.5 FOR PROSTHETIC HEART VALVE REPLACEMENT 2.5 - 3.5 RECURRENT THROMBOSIS Performed By: #### U RCX #### [facility] [address] [place] [address] Dr. Anthony Bonilla PT Coag (PPP) [Time] 10.5 s Normal 9.0-11.6 [facility] Comment on above: Performed By: #### U RCX #### [facility] [address] [place] [address] Dr. Anthony Bonilla PTTon 11-01-2021 aPTT Coag (Bld) [Time] 27.8 s Normal 22.3-36.2 [facility] Comment on above: Performed By: #### U RCX #### [facility] [address] [place] [address] Dr. Anthony Bonilla TSHon 11-01-2021 TSH 1.011 uIU/mL Normal 0.358-3.74 0 [facility] Comment on above: Performed By: #### C BC #### [facility] [address] [place] [address] Dr. Anthony Bonilla URINE MICROSCOPIC ONLYon BACTERIA LARGE Abnormal NONE SEEN [facility] Comment on above: Performed By: #### U RCX #### [facility] [address] [place] [address] Dr. Anthony Bonilla Bacteria identified Cx Nom (U) INDICATED Normal [facility] Comment on above: Performed By: #### U RCX #### [facility] [address] [place] [address] Dr. Anthony Bonilla CAST NONE SEEN Normal NONE SEEN [facility] Comment on above: Performed By: #### U RCX #### [facility] [address] [place] [address] Dr. Anthony Bonilla Crystals LM Nom (Urine sed) NONE SEEN Normal NONE SEEN [facility] Comment on above: Performed By: #### U RCX #### [facility] [address] [place] [address] Dr. Anthony Bonilla Epithelial cells LM Ql (Urine sed) FEW Abnormal NONE SEEN /RARE [facility] Comment on above: Performed By: #### U RCX #### [facility] [address] [place] [address] Dr. Anthony Bonilla MUCOUS NONE SEEN Normal NONE SEEN [facility] Comment on above: Performed By: #### U RCX #### [facility] [address] [place] [address] Dr. Anthony Bonilla RBC 2-5 Abnormal 0-2 [facility] Comment on above: Performed By: #### U RCX #### [facility] [address] [place] [address] Dr. Anthony Bonilla WBC 0-2 Abnormal NONE SEEN [facility] Comment on above: Performed By: #### U RCX #### [facility] [address] [place] [address] Dr. Anthony Bonilla Covid-19 PCR ([facility])on SARS-CoV-2 (COVID-19) RNA OH+probe Ql (Unsp spec) Detected Critically abnormal NOT DETECTED [facility] Comment on above: Result Comment: This test is not yet approved or cleared by the [place] FDA. When there are no FDA-approved or cleared tests available, and other criteria are met, FDA can make tests available under an emergency access mechanism called an Emergency Use Authorization (EUA). The EUA for this test is supported by the Resource Protection Specialist of Health and Human Service's declaration that [...] used). Performed By: #### C BC #### [facility] [address] [place] [address] Dr. Anthony Bonilla Covid-19 PCR ([facility])on SARS-CoV-2 (COVID-19) RNA OH+probe Ql (Unsp spec) Not detected Normal NOT DETECTED [facility] Comment on above: Result Comment: This test is not yet approved or cleared by the [place] FDA. When there are no FDA-approved or cleared tests available, and other criteria are met, FDA can make tests available under an emergency access mechanism called an Emergency Use Authorization (EUA). The EUA for this test is supported by the Resource Protection Specialist of Health and Human Service's (HHS's) declaration [...] SARS-CoV-2. Performed By: #### U RCX #### [facility] [address] [place] [address] Dr. 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 Any time this information is not complete, it is the cashier wrapper?s responsibility to query the physician. Based on [...] timely attention to this matter. Ambar Manley Supervisor [employer] Ext [phone] [Electronically Signed on: 10/18/2019 21:40 EDT] Mi Licea DO [Verified on: 10/18/2019 21:40 EDT] Mi Licea DO [Transcribed on: 10/02/2019 11:06 EDT] [facility] Consent Formson 09-29-2019 Consent Forms [id number]#1.00OTGTI FF [facility] Medication Managementon 09-09 Medication Management [id number]#1.00OTGTI [facility] Outside Recordson 09-29-2019 Outside Records [id number]#1.00OTGTI [facility] Outside Records [id number]#[facility] 09-29-2019 Provider Orders [id number]#1.[facility] Telemetry Stripson 0 Telemetry Strips [id number]#1.00[facility] .Auto Diff 1on 2019 Auto [place] % 11 % Normal -12 [facility] [facility] Comment on above: Performed By: #### 1 [id number], [id number], [id number] #### [facility] (DEFAULT) [address] [place] [address] 59203 Baso Abs# 0.0 x10 Normal 0.0-0.2 [facility] Comment on above: Performed By: #### 1 [id number], [id number], [id number] #### [facility] (DEFAULT) [address] [place] [address] 52575 Basophils/100 WBC (Bld) 0.1 % Low 0.2-2.0 [facility] Comment on above: Performed By: #### 1 [id number], [id number], 8096439 #### [facility] (DEFAULT) [address] [place] [address] 22536 Eos Abs# 0.2 x10 Normal 0.0-0.4 [facility] Comment on above: Performed By: #### 1 [id number], [id number], 8675932 #### [facility] (DEFAULT) [address] [place] [address] 01658 Eosinophils/100 WBC (Bld) 2.2 % Normal 0.9-4.0 [facility] Comment on above: Performed By: #### 1 [id number], 73546266, 3982624 #### [facility] (DEFAULT) [address] [place] [address] Lymphocytes (Bld) [#/Vol] 0.6 x10 Low 1.3-2.9 [facility] Comment on above: Performed By: #### 1 [id number], [id number], 4177316 #### [facility] (DEFAULT) [address] [place] [address] Lymphocytes/100 WBC (Bld) 6 % Low 14-48 [facility] Comment on above: Performed By: #### 1 [id number], [id number], 4688352 #### [facility] (DEFAULT) [address] [place] [address] Inyo Abs# 1.0 x10 High 0.0-0.8 [facility] Comment on above: Performed By: #### 1 [id number], [id number], 2880085 #### [facility] (DEFAULT) [address] [place] [address] Neut Abs# 7.2 x10 Normal 1.5-9.2 [facility] Comment on above: Performed By: #### 1 [id number], 34592314, 9742940 #### [facility] (DEFAULT) [address] [place] [address] Neutrophils/100 WBC (Bld) 80 % Normal 44-88 [facility] Comment on above: Performed By: #### 1 [id number], [id number], 0274952 #### [facility] (DEFAULT) [address] [place] [address] CBC w/ Auto Diffon 202 0 Erythrocyte distribution width (RBC) [Ratio] 14.4 % Normal 11.5-15.0 [facility] Comment on above: Performed By: #### 1 [id number], 61740635, 6789487 #### [facility] (DEFAULT) [address] [place] [address] Hematocrit (Bld) [Volume fraction] 36.2 % Normal 33.7-40.4 [facility] Comment on above: Performed By: #### 1 [id number], 29265669, 1235485 #### [facility] (DEFAULT) [address] [place] [address] 70933 Hemoglobin (Bld) [Mass/Vol] 11.9 g/dL Normal 11.3-15.9 [facility] Comment on above: Performed By: #### 1 [id number], 25623667, 8375164 #### [facility] (DEFAULT) [address] [place] [address] 38359 Man Diff? Auto Normal [facility] Comment on above: Performed By: #### 1 [id number], 74964729, 9587030 #### [facility] (DEFAULT) [address] [place] [address] 34136 MCH (RBC) [Entitic mass] 33 pg Normal 24-34 [facility] Comment on above: Performed By: #### 1 [id number], 77575626, 3207599 #### [facility] (DEFAULT) [address] [place] [address] 44456 MCHC (RBC) [Mass/Vol] 33 g/dL Normal 26-37 [facility] Comment on above: Performed By: #### 1 [id number], 29822834, 3643249 #### [facility] (DEFAULT) [address] [place] [address] 70521 MCV (RBC) [Entitic vol] 100 fL Normal 81-100 [facility] Comment on above: Performed By: #### 1 [id number], 05648139, 4241330 #### [facility] (DEFAULT) [address] [place] [address] 75168 Platelet mean volume (Bld) [Entitic vol] 9.6 fL Normal 6.3-10.2 [facility] Comment on above: Performed By: #### 1 [id number], 09982970, 8687614 #### [facility] (DEFAULT) [address] [place] [address] 66766 Platelets (Bld) [#/Vol] 286 x10 Normal 138-427 [facility] Comment on above: Performed By: #### 1 [id number], 96054047, 9745902 #### [facility] (DEFAULT) [address] [place] [address] RBC (Bld) [#/Vol] 3.61 x10 Low 3.70-5.30 [facility] Comment on above: Performed By: #### 1 [id number], 64112162, 3171926 #### [facility] (DEFAULT) [address] [place] [address] 40956 WBC (Bld) [#/Vol] 9.0 x10 [facility] Comment on above: Performed By: #### 1 [id number], 76026187, 2545294 #### [facility] (DEFAULT) [address] [place] [address] 79575 Education Noteon 2019 Education Note Education Materials [...] done to rule of a DVT. Normal [facility] Extra Greenon 2019 Tube Collected Yes [facility] Comment on above: Performed By: #### 1 [id number], [id number], 2600935 #### [facility] (DEFAULT) [address] [place] [address] 50955 Inpatient Patient Summaryon 2019 Inpatient Patient Summary [address] [address] Patient Discharge Instructions Name: VINCENT HSU : 1935 Patient Address: [address] [place] [address] Primary Care Provider: Name: Gypsy Mcmahon MD After you are discharged if you find you have any questions, please, call [phone] ext [phone] to speak to a nurse. Discharge Diagnosis: Primary localized osteoarthritis of left hip Prescription Information: If you have been given a prescription for narcotics, seek immediate medical attention if you have any difficulty breathing or any sudden status changes such as confusion and sleepiness. If you or anyone you know is experiencing suicidal thoughts, mental health, alcohol and/or drug addiction problems; contact the [facility] 31/08 Crisis Hotline -Text 4HQFN to 269480. If you received any narcotics, sedation, or [...] business decisions or sign any legal documents [facility] would like to thank you for allowing us to assist you with your healthcare needs. The following includes patient education materials and information regarding your injury/illness. HSU VINCENT Evangelista has been given the following list of follow-up instructions, prescriptions, and patient education materials: Follow-up Instructions With: Address: When: Mi Licea [address] [place] [address] [address] [place] [address] Business (2) 10/03/2019 8:30 AM With: Address: When: Gypsy cMmahon [address] [place] [address] [place] [address] Business (1) Medications During the [...] for Disease Control and Prevention October 2013 [facility] Progress Note - Nurseon 09-09 [facility] Pt. [facility] [...] room. [Electronically Signed on: 2019 11:52 EDT] aPn Regalado RN [Verified on: 2019 11:52 EDT] Pan Regalado RN [facility] Progress Note - Nurse Pt. reports interm ittent left upper inner thigh grabbing pain. Pt. moans during these episodes. Tramadol given. Pt. repostioned for comfort. No change in the muscle spasms. Dr. Chacko informed in person. No orders received. [Electronically Signed on: 2019 09:32 EDT] Pan Regalado RN [Verified on: 2019 09:32 EDT] Pan Regalado RN [facility] Progress Note-Physicianon Progress Note-Physician DATE [...] PROGNOSIS: Good. Devorah Redd DO JOB #: [id number] [Electronically Signed on: 2019 13:04 EDT] DEVORAH REDD DO [Verified on: 2019 13:04 EDT] DEVORAH REDD DO [Transcribed on: 2019 11:05 EDT] GDU Normal [facility] .Auto Diff 1on 09-27-2019 Auto In[place] % 9 % Normal 1-12 [facility] Comment on above: Performed By: #### 1 [id number], [id number], 2858596 #### [facility] (DEFAULT) [address] [place] [address] 11520 Baso Abs# 0.0 x10 Normal 0.0-0.2 [facility] Comment on above: Performed By: #### 1 [id number], 51048178, 2897083 #### [facility] (DEFAULT) [address] [place] [address] 64764 Basophils/100 WBC (Bld) 0.1 % Low 0.2-2.0 [facility] Comment on above: Performed By: #### 1 [id number], [id number], 4810774 #### [facility] (DEFAULT) [address] [place] [address] 97189 Eos Abs# 0.2 x10 Normal 0.0-0.4 [facility] Comment on above: Performed By: #### 1 [id number], 49992993, 1833897 #### [facility] (DEFAULT) [address] [place] [address] 34760 Eosinophils/100 WBC (Bld) 1.6 % Normal 0.9-4.0 [facility] Comment on above: Performed By: #### 1 [id number], 80754958, 7610787 #### [facility] (DEFAULT) [address] [place] [address] 53217 Lymphocytes (Bld) [#/Vol] 0.5 x10 Low 1.3-2.9 [facility] Comment on above: Performed By: #### 1 [id number], 27796108, 2814805 #### [facility] (DEFAULT) [address] [place] [address] 98504 Lymphocytes/100 WBC (Bld) 4 % Low 14-48 [facility] Comment on above: Performed By: #### 1 [id number], 18476111, 6023818 #### [facility] (DEFAULT) [address] [place] [address] 40503 In[place] Abs# 1.2 x10 High 0.0-0.8 [facility] Comment on above: Performed By: #### 1 [id number], 65842413, 6216430 #### [facility] (DEFAULT) [address] [place] [address] 03709 Neut Abs# 11.5 x10 High 1.5-9.2 [facility] Comment on above: Performed By: #### 1 [id number], 06572740, 2701551 #### [facility] (DEFAULT) [address] [place] [address] 16703 Neutrophils/100 WBC (Bld) 86 % Normal 44-88 [facility] Comment on above: Performed By: #### 1 [id number], 89020040, 1022876 #### [facility] (DEFAULT) [address] [place] [address] C Urineon 09-27-2019 C Urine Urine Culture [...] <=4 Verified Tri/Sulf S <=2/38 Verified Normal [facility] Comment on above: Performed By: #### 7 [id number], [id number], [id number] #### [facility] (DEFAULT) [address] [place] [address] CBC w/ Auto Diffon 0 Erythrocyte distribution width (RBC) [Ratio] 14.5 % Normal 11.5-15.0 [facility] Comment on above: Performed By: #### 1 [id number], 20864552, 0186208 #### [facility] (DEFAULT) [address] [place] [address] Hematocrit (Bld) [Volume fraction] 39.2 % Normal 33.7-40.4 [facility] Comment on above: Performed By: #### 1 [id number], 29153421, 2405377 #### [facility] (DEFAULT) [address] [place] [address] Hemoglobin (Bld) [Mass/Vol] 12.8 g/dL Normal 11.3-15.9 [facility] Comment on above: Performed By: #### 1 [id number], 22520578, 2862966 #### [facility] (DEFAULT) [address] [place] [address] 63071 Man Diff? Auto Normal [facility] Comment on above: Performed By: #### 1 [id number], 01465769, 5305399 #### [facility] (DEFAULT) [address] [place] [address] 36792 MCH (RBC) [Entitic mass] 33 pg Normal 24-34 [facility] Comment on above: Performed By: #### 1 [id number], 12910773, 3334160 #### [facility] (DEFAULT) [address] [place] [address] 79930 MCHC (RBC) [Mass/Vol] 33 g/dL Normal 26-37 [facility] Comment on above: Performed By: #### 1 [id number], 88548085, 4230117 #### [facility] (DEFAULT) [address] [place] [address] MCV (RBC) [Entitic vol] 101 fL High 81-100 [facility] Comment on above: Performed By: #### 1 [id number], 95034601, 3630431 #### [facility] (DEFAULT) [address] [place] [address] 59507 Platelet mean volume (Bld) [Entitic vol] 9.8 fL Normal 6.3-10.2 [facility] Comment on above: Performed By: #### 1 [id number], 82406327, 8327590 #### [facility] (DEFAULT) [address] [place] [address] 78728 Platelets (Bld) [#/Vol] 266 x10 Normal 138-427 [facility] Comment on above: Performed By: #### 1 [id number], 15075898, 2371590 #### [facility] (DEFAULT) [address] [place] [address] 37451 RBC (Bld) [#/Vol] 3.89 x10 Normal 3.70-5.30 [facility] Comment on above: Performed By: #### 1 [id number], 66742803, 4118191 #### [facility] (DEFAULT) [address] [place] [address] WBC (Bld) [#/Vol] 13.4 x10 [facility] Comment on above: Result Comment: Slid e Reviewed Performed By: #### 1 [id number], 95888104, 5452012 #### [facility] (DEFAULT) [address] [place] [address] Coding Summaryon 09-27-2019 Coding Summary CODING DATE: 020 FINAL [facility] STATUS: Home PAYOR: Medicare ADMIT DX: REASON [...] Marisela Lawrence Date Saved: 09/27/2019 11:11 am [facility] Extra Greenon 09-27-2019 Tube Collected Yes [facility] Comment on above: Performed By: #### 1 [id number], [id number], 4761234 #### [facility] (DEFAULT) [address] [place] [address] 40895 Nutrition Noteon 09-27-2019 Nutrition Note Pt eating poorly, av g less than 30% of meals per intake records. Supplements also taken sporadically. Suspect pain and constipation may be playing a role. No new wts. Last BM 09/23. Possible discharge later today. Will continue to follow and monitor need to adjust supplements ie. offer to make into a milkshake, [facility] Pharmacy Noteon 09-27-2019 Pharmacy Note [...] [Verified on: 09/27/2019 14:01 EDT] Virgie Santos [facility] Progress Note - Nurseon 08- Progress Note - Nurse 1800 one dulcolax suppository administered, will continue to monitor. [Electronically Signed on: 09/27/2019 18:03 EDT] Luli Mclain RN [Verified on: 09/27/2019 18:03 EDT] Luli Mclain RN [facility] Progress Note - Nurse 1710 tramadol 50mg po administered for #10 left upper thigh pain , will continue to monitor. [Electronically Signed on: 09/27/2019 17:09 EDT] Luli Mclain RN [Verified on: 09/27/2019 17:09 EDT] Luli Mclain RN [facility] Progress Note-Physicianon Progress Note-Physician DATE [...] PROGNOSIS: Good. Devorah Redd DO JOB #: [id number] [Electronically Signed on: 2019 10:28 EDT] DEVORAH REDD DO [Verified on: 2019 10:28 EDT] DEVORAH REDD DO [Transcribed on: 09/27/2019 13:52 EDT] [facility] .Auto Diff 09-26-2019 Auto In[place] % 9 % Normal 1-12 [facility] Comment on above: Performed By: #### 1 [id number], 21422385, 7593843 #### [facility] (DEFAULT) [address] [place] [address] Baso Abs# 0.0 x10 Normal 0.0-0.2 [facility] Comment on above: Performed By: #### 1 [id number], 34912317, 3729593 #### [facility] (DEFAULT) [address] [place] [address] Basophils/100 WBC (Bld) 0.1 % Low 0.2-2.0 [facility] Comment on above: Performed By: #### 1 [id number], 51129294, 4378720 #### [facility] (DEFAULT) [address] [place] [address] Eos Abs# 0.2 x10 Normal 0.0-0.4 [facility] Comment on above: Performed By: #### 1 [id number], 64121470, 5986028 #### [facility] (DEFAULT) [address] [place] [address] 32610 Eosinophils/100 WBC (Bld) 2.0 % Normal 0.9-4.0 [facility] Comment on above: Performed By: #### 1 [id number], 75942432, 0126790 #### [facility] (DEFAULT) [address] [place] [address] 56795 Lymphocytes (Bld) [#/Vol] 0.6 x10 Low 1.3-2.9 [facility] Comment on above: Performed By: #### 1 [id number], 36110029, 6023913 #### [facility] (DEFAULT) [address] [place] [address] 19065 Lymphocytes/100 WBC (Bld) 6 % Low 14-48 [facility] Comment on above: Performed By: #### 1 [id number], 80954665, 4606003 #### [facility] (DEFAULT) [address] [place] [address] [place] Abs# 0.9 x10 High 0.0-0.8 [facility] Comment on above: Performed By: #### 1 [id number], 36042618, 4619024 #### [facility] (DEFAULT) [address] [place] [address] Neut Abs# 8.3 x10 Normal 1.5-9.2 [facility] Comment on above: Performed By: #### 1 [id number], 69402695, 9445346 #### [facility] (DEFAULT) [address] [place] [address] Neutrophils/100 WBC (Bld) 83 % Normal 44-88 [facility] Comment on above: Performed By: #### 1 [id number], 60179278, 9745301 #### [facility] (DEFAULT) [address] [place] [address] Standardon 09-26-2019 eGFR Non AA 48 mL/min/1.73m2 [facility] Comment on above: Performed By: #### 1 [id number], 96309528, 0881683 #### [facility] (DEFAULT) [address] [place] [address] eGFR AA 58 mL/min/1.73m2 [facility] Comment on above: Result Comment: Medical Affairs Manager kody Kidney disease could be indicated at eGFRs of less than 60 ml/min/1.73m2. Kidney Failure is indicated at less than 15 ml/min/1.73m2 Performed By: #### 1 [id number], 46312950, 9264921 #### [facility] (DEFAULT) [address] [place] [address] 81224 Anion gap [Moles/Vol] 10.0 mmol/L Normal 5.0-19.0 [facility] Comment on above: Performed By: #### 1 [id number], 16114198, 6348154 #### [facility] (DEFAULT) [address] [place] [address] 23895 Calcium [Mass/Vol] 8.8 mg/dL Low 8.9-10.3 [facility] Comment on above: Performed By: #### 1 [id number], 77384065, 4980727 #### [facility] (DEFAULT) [address] [place] [address] 10351 Chloride [Moles/Vol] 103 mmol/L Normal 101-111 [facility] Comment on above: Performed By: #### 1 [id number], 38060010, 7835111 #### [facility] (DEFAULT) [address] [place] [address] 20604 CO2 [Moles/Vol] 28 mmol/L Normal 21-32 [facility] Comment on above: Performed By: #### 1 [id number], 12688099, 3271712 #### [facility] (DEFAULT) [address] [place] [address] 46681 Creatinine [Mass/Vol] 1.09 mg/dL Normal 0.60-1.30 [facility] Comment on above: Performed By: #### 1 [id number], 38202043, 5752044 #### [facility] (DEFAULT) [address] [place] [address] 72903 Glucose [Mass/Vol] 94.0 mg/dL Normal 74.0-118.0 [facility] Comment on above: Performed By: #### 1 [id number], 97427741, 9918432 #### [facility] (DEFAULT) [address] [place] [address] 02815 Osmolality [Osmolality] 276 mOsm/L [facility] Comment on above: Performed By: #### 1 [id number], 62789206, 8672516 #### [facility] (DEFAULT) [address] [place] [address] 05978 Potassium [Moles/Vol] 4.4 mmol/L Normal 3.6-5.1 [facility] Comment on above: Performed By: #### 1 [id number], 77089487, 8754113 #### [facility] (DEFAULT) [address] [place] [address] 78049 Sodium [Moles/Vol] 137.0 mmol/L Normal 136.0-144 . 0 [facility] Comment on above: Performed By: #### 1 [id number], 53679556, 7701507 #### [facility] (DEFAULT) [address] [place] [address] 21037 Urea nitrogen [Mass/Vol] 19 mg/dL Normal 8-26 [facility] Comment on above: Performed By: #### 1 [id number], 14023183, 3275407 #### [facility] (DEFAULT) [address] [place] [address] 71155 Urea nitrogen/Creatinine [Mass ratio] 17.0 mg/mg High 4.6-16.2 [facility] Comment on above: Performed By: #### 1 [id number], 71638991, 5057300 #### [facility] (DEFAULT) [address] [place] [address] 31700 CBC w/ Auto Diffon 0 Erythrocyte distribution width (RBC) [Ratio] 14.4 % Normal 11.5-15.0 [facility] Comment on above: Performed By: #### 1 [id number], 32652678, 9962443 #### [facility] (DEFAULT) [address] [place] [address] Hematocrit (Bld) [Volume fraction] 35.5 % Normal 33.7-40.4 [facility] Comment on above: Performed By: #### 1 [id number], 59299699, 2913198 #### [facility] (DEFAULT) [address] [place] [address] 48356 Hemoglobin (Bld) [Mass/Vol] 11.6 g/dL Normal 11.3-15.9 [facility] Comment on above: Performed By: #### 1 [id number], 17415545, 6288340 #### [facility] (DEFAULT) [address] [place] [address] 38178 Man Diff? Auto Normal [facility] Comment on above: Performed By: #### 1 [id number], 07405451, 3314297 #### [facility] (DEFAULT) [address] [place] [address] 12699 MCH (RBC) [Entitic mass] 33 pg Normal 24-34 [facility] Comment on above: Performed By: #### 1 [id number], 41753287, 8016007 #### [facility] (DEFAULT) [address] [place] [address] 71804 MCHC (RBC) [Mass/Vol] 33 g/dL Normal 26-37 [facility] Comment on above: Performed By: #### 1 [id number], 35468064, 6521250 #### [facility] (DEFAULT) [address] [place] [address] MCV (RBC) [Entitic vol] 102 fL High 81-100 [facility] Comment on above: Performed By: #### 1 [id number], 91826989, 5896008 #### [facility] (DEFAULT) [address] [place] [address] Platelet mean volume (Bld) [Entitic vol] 9.8 fL Normal 6.3-10.2 [facility] Comment on above: Performed By: #### 1 [id number], 59440706, 8395396 #### [facility] (DEFAULT) [address] [place] [address] Platelets (Bld) [#/Vol] 236 x10 Normal 138-427 [facility] Comment on above: Performed By: #### 1 [id number], 98336933, 9279843 #### [facility] (DEFAULT) [address] [place] [address] 91990 RBC (Bld) [#/Vol] 3.49 x10 Low 3.70-5.30 [facility] Comment on above: Performed By: #### 1 [id number], 26037826, 9694801 #### [facility] (DEFAULT) [address] [place] [address] 89696 WBC (Bld) [#/Vol] 10.0 x10 [facility] Comment on above: Performed By: #### 1 [id number], 43604847, 7813829 #### [facility] (DEFAULT) [address] [place] [address] Consent Formson 09-26-2019 Consent Forms [id number] [facility] Consultation/Specialist Note on 09-26-2019 Consultation/Specialis t Note [...] [Verified on: 09/26/2019 07:35 EDT] RIDDHISUDHEER HOLLOWAY [facility] Progress Note - Nurseon 09-08 [...] on: 09/26/2019 07:45 EDT] Twila Cruz RN [facility] .Auto Diff 1on 09-25-2019 Auto [place] % 8 % Normal -12 [facility] Comment on above: Performed By: #### 1 [id number], 66456433, 8300597 #### [facility] (DEFAULT) [address] [place] [address] 13286 Baso Abs# 0.0 x10 Normal 0.0-0.2 [facility] Comment on above: Performed By: #### 1 [id number], 42491157, 7909329 #### [facility] (DEFAULT) [address] [place] [address] 79309 Basophils/100 WBC (Bld) 0.2 % Normal 0.2-2.0 [facility] Comment on above: Performed By: #### 1 [id number], 40745319, 0810323 #### [facility] (DEFAULT) [address] [place] [address] 47912 Eos Abs# 0.1 x10 Normal 0.0-0.4 [facility] Comment on above: Performed By: #### 1 [id number], 81764564, 2584902 #### [facility] (DEFAULT) [address] [place] [address] 85256 Eosinophils/100 WBC (Bld) 0.5 % Low 0.9-4.0 [facility] Comment on above: Performed By: #### 1 [id number], 64516972, 4348811 #### [facility] (DEFAULT) [address] [place] [address] 30101 Lymphocytes (Bld) [#/Vol] 1.1 x10 Low 1.3-2.9 [facility] Comment on above: Performed By: #### 1 [id number], [id number], [id number] #### [facility] (DEFAULT) [address] [place] [address] 24170 Lymphocytes/100 WBC (Bld) 9 % Low 14-48 [facility] Comment on above: Performed By: #### 1 [id number], [id number], [id number] #### [facility] (DEFAULT) [address] [place] [address] 13756 [place] Abs# 1.0 x10 High 0.0-0.8 [facility] Comment on above: Performed By: #### 1 [id number], [id number], [id number] #### [facility] (DEFAULT) [address] [place] [address] 67159 Neut Abs# 9.6 x10 High 1.5-9.2 [facility] Comment on above: Performed By: #### 1 [id number], [id number], [id number] #### [facility] (DEFAULT) [address] [place] [address] 89657 Neutrophils/100 WBC (Bld) 82 % Normal 44-88 [facility] Comment on above: Performed By: #### 1 [id number], [id number], [id number] #### [facility] (DEFAULT) [address] [place] [address] 32490 ABORhon 09-25-2019 ABO and Rh group Nom (Bld) Hx Check: Not Found Anti-A: 4+ Anti-B: 0 Anti-D: 4+ DCon: NT A1: 0 B: 4+ ABORh Interp: A POS [facility] Comment on above: Performed By: #### 7 [id number], [id number], [id number] #### [facility] (DEFAULT) [address] [place] [address] 52281 ABORh Retypeon 09-25-2019 ABO and Rh group Nom (Bld) Ordered by Discern. Anti-A: 4+ Anti-B: 0 Anti-D: 4+ DCon: NT A1: 0 B: 4+ ABORh Retype: A [facility] Comment on above: Performed By: #### 7 [id number], [id number], [id number] #### [facility] (DEFAULT) [address] [place] [address] 69093 ABSC Gelon 09-25-2019 ABSC Gel Negative Normal [facility] Comment on above: Performed By: #### 7 [id number], [id number], [id number] #### [facility] (DEFAULT) [address] [place] [address] 75506 Anesthesia Noteon 09-25-2019 Anesthesia Note Patient: DONTAE [...] risk of pressure sore / SNOMED CT 417860819 / Confirmed CAD (coronary artery disease) / SNOMED CT 65347271 / Confirmed Hyperlipidemia / SNOMED CT 85699118 / Confirmed Hypertension / SNOMED CT 4295948041 / Confirmed Skin cancer / SNOMED CT 6320543830 / Confirmed Osteoporosis / SNOMED CT 711111872 / Confirmed Restless leg syndrome / SNOMED CT 14234472 / Confirmed Resolved: GERD (gastroesophageal reflux disease) / SNOMED CT 992278943 Histories Family History: Cancer Sister Brother Aneurysm Mother CHF - Congestive heart failure Father MA (myocardial infarction) Sister Procedure history: Umbilical hernia (7327684988). Arthroscopy (08631980). Comments: 08/29/2019 12:57 Dionne Mccarty RN arthroscopy of knee Cholecystectomy (59550689). Hysterectomy (381417099). Cataract (450826479). Shoulder (73497104). Comments: 08/29/2019 12:58 EDT - Dionne Yun RN arthroscopy CABG (Coronary artery bypass grafting) planned (722997807). Colonoscopy (757801543). EGD - Esophagogastroduodenoscop y (7111831184). Meniscectomy (341621205). Hip arthroplasty (140900258). Social History Electronic Cigarette/Vaping Assessment Electronic Cigarette [...] axis dev, LAFB, RV conduction delay. Plan [place] [employer]esthesiologists#(ASA) physical status classification: Class III. Anesthetic Preoperative Plan Anesthesia: Regional Spinal. Anesthetic plan, risks, benefits, and alternatives discussed with the patient and/or family. Patient verbalized understanding. Informed consent was given. Consent was signed by the patient. [Electronically Signed on: 09/25/2019 10:10 EDT] Enrike Mora MD [Verified on: 09/25/2019 10:10 EDT] Enrike Mora MD Normal [facility] Blood Bank IDon 09-25-2019 Blood Bank ID BBID: [id number] [facility] Comment on above: Performed By: #### 7 [id number], [id number], [id number] #### [facility] (DEFAULT) [address] [place] [address] 75005 CBC w/ Auto Diffon 0 Erythrocyte distribution width (RBC) [Ratio] 14.4 % Normal 11.5-15.0 [facility] Comment on above: Performed By: #### 1 [id number], [id number], [id number] #### [facility] (DEFAULT) [address] [place] [address] 20857 Hematocrit (Bld) [Volume fraction] 39.2 % Normal 33.7-40.4 [facility] Comment on above: Performed By: #### 1 [id number], 12030651, 3578715 #### [facility] (DEFAULT) [address] [place] [address] 77542 Hemoglobin (Bld) [Mass/Vol] 12.8 g/dL Normal 11.3-15.9 [facility] Comment on above: Performed By: #### 1 [id number], 15646846, [id number] #### [facility] (DEFAULT) [address] [place] [address] 49709 Man Diff? Auto Normal [facility] Comment on above: Performed By: #### 1 [id number], 38410884, [id number] #### [facility] (DEFAULT) [address] [place] [address] 00999 MCH (RBC) [Entitic mass] 33 pg Normal 24-34 [facility] Comment on above: Performed By: #### 1 [id number], 36878918, [id number] #### [facility] (DEFAULT) [address] [place] [address] 88980 MCHC (RBC) [Mass/Vol] 33 g/dL Normal 26-37 [facility] Comment on above: Performed By: #### 1 [id number], 04756294, [id number] #### [facility] (DEFAULT) [address] [place] [address] 57769 MCV (RBC) [Entitic vol] 102 fL High 81-100 [facility] Comment on above: Performed By: #### 1 [id number], 16925923, 3881306 #### [facility] (DEFAULT) [address] [place] [address] 19947 Platelet mean volume (Bld) [Entitic vol] 9.4 fL Normal 6.3-10.2 [facility] Comment on above: Performed By: #### 1 [id number], 23593401, 1480732 #### [facility] (DEFAULT) [address] [place] [address] 04327 Platelets (Bld) [#/Vol] 272 x10 Normal 138-427 [facility] Comment on above: Performed By: #### 1 [id number], 86479773, [id number] #### [facility] (DEFAULT) [address] [place] [address] 24929 RBC (Bld) [#/Vol] 3.85 x10 Normal 3.70-5.30 [facility] Comment on above: Performed By: #### 1 [id number], 33445019, 9969415 #### [facility] (DEFAULT) [address] [place] [address] 23596 WBC (Bld) [#/Vol] 11.7 x10 High 3.5-10.5 [facility] Comment on above: Performed By: #### 1 [id number], 31776883, 3596922 #### [facility] (DEFAULT) [address] [place] [address] 01380 Extra [place] 09-25-2019 Tube Collected Yes [facility] Comment on above: Performed By: #### 7 411124, 25264259, [id number] #### [facility] (DEFAULT) [address] [place] [address] 80433 H&Hon 09-25-2019 Hematocrit (Bld) [Volume fraction] 39.9 % Normal 33.7-40.4 [facility] Comment on above: Performed By: #### 7 290698, 42260100, [id number] #### [facility] (DEFAULT) [address] [place] [address] 17549 Hemoglobin (Bld) [Mass/Vol] 12.7 g/dL Normal 11.3-15.9 [facility] Comment on above: Performed By: #### 7 598268, 96351790, [id number] #### [facility] (DEFAULT) [address] [place] [address] History and Physicalon 09-24 History and Physical [id number] FF Normal [facility] MAGR Intraoperative Recordon 09-25-2019 MAGR Intraoperative Record MAGR Intra-Op Record Summary Primary Physician: Mi Licea DO Finalized Date/Time: 09/25/19 15:04:11 Pt. Name: VINCENT HSU Jean Carlos Cha/Sex: 1935 FEMALE Med Rec #: [id number] Physician: Mi Licea DO Financial #: [id number] Pt. Type: I Room/Bed: [facility] Admit/Disch: 09/25/19 06:52:00 - Institution: Case Times [...] Role Performed Surgeon - Primary Anesthesiologist of Corn Lab Technician Record Time In 09/25/19 09:37:00 09/25/19 09:37:00 09/25/19 09:37:00 Time Out 09/25/19 11:50:00 09/25/19 11:50:00 09/25/19 11:50:00 Procedure Arthroplasty Total Arthroplasty Total Arthroplasty Total Hip(Left) Hip(Left) Hip(Left) Last Modified By: Marj Sullivan RN, Stephanie RN Sauer, Stephanie RN 09/25/19 12:54:58 09/25/19 12:54:58 09/25/19 12:54:58 Entry 4 Entry 5 Entry 6 Case Attendee Montrell MCKEON, Shantal Moreira Leigh-Ann CST Role Performed Scrub Personnel Shovel Handle Assembler Shovel Handle Assembler Time In 09/25/19 09:37:00 09/25/19 09:37:00 09/25/19 [...] 50MM 6.5 X 30MM 6.5 X 15MM Hose Mender DEPUY DEPUY DEPUY Catalog # Lot Number [id number] Expiration Date 05/08/24 03/10/29 01/07/29 Serial Number [id number] REF 1217-30-500 REF 1217-15-500 Device Identifier Human Readable EDDA Machine Readable EDDA MR Class Implant Usage Data Site Hip L Hip L Hip L Quantity 1 1 1 Reason for Explant Reason Not Retained Explant Disposition Ribbon Tier Sterility External Indicator Result Internal Indicator Results [...] BOYD Size 6.5 X 15MM 50MM PS Hose Mender DEPUY DEPUY DEPUY Catalog # Lot Number [id number] Expiration Date 11/07/28 04/07/29 04/07/29 Serial Number REF 1217-15-500 REF [id number] REF 1246-03-000 Device Identifier Human Readable EDDA Machine Readable EDDA MR Class Implant Usage Data Site Hip L Hip L Hip L Quantity 1 1 1 Reason for Explant Reason Not Retained Explant Disposition Ribbon Tier Sterility External Indicator Result Internal Indicator Results [...] SHORT NECK COLLAR 01/21 TAPER SIZE 11 Hose Mender DEPUY DEPUY Catalog # Lot Number [id number] Expiration Date 02/08/24 02/08/24 Serial Number REF [id number] REF 1365-22-000 Device Identifier Human Readable EDDA Machine Readable EDDA MR Class Implant Usage Data Site Hip L Hip L Quantity 1 1 Reason for Explant Reason Not Retained Explant Disposition Ribbon Tier Sterility External Indicator Result Internal Indicator Results [...] Unfinalizing 09/25/19 15:04 MHFRANCISCO Modify Pick List [facility] MAGR PACU Recordon 0 MAGR PACU Record MAGR PACU Record Sum vincent Primary Physician: Mi Licea DO Finalized Date/Time: 09/25/19 12:53:39 Pt. Name: VINCENT HSU/Sex: 1935 FEMALE Med Rec #: [id number] Physician: Mi Licea DO Financial #: [id number] Pt. Type: I Room/Bed: [facility] Admit/Disch: 09/25/19 06:52:00 - Institution: PACU Case Times MAGR Entry 1 In PACU I 09/25/19 11:50:00 Discharge from PACU 09/25/19 12:40:00 I Last Modified By: Dionne Yun RN 09/25/19 12:53:35 Finalized By: Dionne Yun RN Document Signatures Signed By: Dionne Yun RN 09/25/19 12:53 [facility] MAGR Preoperative Recordon 0 09-25-2019 MAGR Preoperative Record MAGR Pre-Op Record Summary Primary Physician: Mi Licea DO Finalized Date/Time: 09/25/19 11:58:52 Pt. Name: VINCENT HSU/Sex: 1935 FEMALE Med Rec #: [id number] Physician: Mi Licea DO Financial #: [id number] Pt. Type: I Room/Bed: 221/1 Admit/Disch: 09/25/19 [...] Signed By: Dionne Yun RN 09/25/19 11:58 [facility] Nutrition Noteon 09-25-2019 Nutrition Note Pt admitted for sche duled Lt total hip sx; placed on a Regular diet as tolerated w/ post op supplements BID along w/ usual vitamin/mineral supplementation. Nutritional supplements adjusted to what's available in house. Per vascular ultrasound technician assessment, Pt reports wt loss of 2-13lb, [...] associates to offer prunes/prune alfred q am. [facility] Operative Report - Surgeon/P hung [...] [Electronically Signed on: 10/18/2019 21:39 EDT] Mi iLcea DO [facility] Pharmacy Noteon 09-25-2019 Pharmacy Note [...] [Verified on: 09/25/2019 13:26 EDT] Virgie Santos [facility] Pharmacy Note I have personally [...] [Verified on: 09/25/2019 13:04 EDT] Marj Mccall [facility] Progress Note - Nurseon 08- TSH Qn Pt states that she i s having pain in her lt hip and neck #8 on the scale. Pt also complains of freezing . Temp 97.8. Pt given a warm blanket and medicated with Morphine 2mg IVP as ordered. 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 Performed By: #### 7 [id number], [id number], [id number] #### [facility] (DEFAULT) [address] [place] [address] UA Bacteria 4+ [facility] Comment on above: Order Comment: Urina lysis Microscopic order added on by [employer] Expert Rules system. Performed By: #### 7 [id number], [id number], [id number] #### [facility] (DEFAULT) [address] [place] [address] 93740 UA Squam Epi Rare [facility] Comment on above: Order Comment: Urina lysis Microscopic order added on by [employer] Expert Rules system. Performed By: #### 7 693469, [id number], [id number] #### [facility] (DEFAULT) [address] [place] [address] UA WBC 0-2 [facility] Comment on above: Order Comment: Urina lysis Microscopic order added on by [employer] Expert Rules system. Performed By: #### 7 293662, 16940032, [id number] #### [facility] (DEFAULT) [address] [place] [address] 90909 UA w Culture if Ind Standard on 09-25-2019 Breakpoint UA [facility] Comment on above: Order Comment: sim insert Performed By: #### 7 [id number], 06650229, [id number] #### [facility] (DEFAULT) [address] [place] [address] 96240 Color (U) Yellow [facility] Comment on above: Order Comment: sim insert Performed By: #### 7 214437, 99705519, [id number] #### [facility] (DEFAULT) [address] [place] [address] 67781 Culture? Indicated [facility] Comment on above: Order Comment: sim insert Performed By: #### 7 568426, 44788280, [id number] #### [facility] (DEFAULT) [address] [place] [address] 90924 Glucose (U) [Mass/Vol] Negative [facility] Comment on above: Order Comment: sim insert Performed By: #### 7 016677, 74317471, [id number] #### [facility] (DEFAULT) [address] [place] [address] Ketones Ql (U) Negative [facility] Comment on above: Order Comment: sim insert Performed By: #### 7 561501, 95562250, [id number] #### [facility] (DEFAULT) [address] [place] [address] 91454 Micro? Indicated [facility] Comment on above: Order Comment: sim insert Performed By: #### 7 936393, 03791026, [id number] #### [facility] (DEFAULT) [address] [place] [address] UA Bilirubin Negative [facility] Comment on above: Order Comment: sim insert Performed By: #### 7 373914, 33401043, [id number] #### [facility] (DEFAULT) [address] [place] [address] 74743 UA Blood Negative Normal NEGATIVE [facility] Comment on above: Order Comment: sim insert Performed By: #### 7 414726, 01699391, [id number] #### [facility] (DEFAULT) [address] [place] [address] 74244 UA Clarity CLEAR Normal CLEAR [facility] Comment on above: Order Comment: sim insert Performed By: #### 7 440763, 07616052, [id number] #### [facility] (DEFAULT) [address] [place] [address] 11565 UA Leuk Est SMALL Abnormal NEGATIVE [facility] Comment on above: Order Comment: sim insert Performed By: #### 7 660328, 76032802, [id number] #### [facility] (DEFAULT) [address] [place] [address] 43842 UA Nitrite Positive Abnormal NEGATIVE [facility] Comment on above: Order Comment: sim insert Performed By: #### 7 002369, 77810059, [id number] #### [facility] (DEFAULT) [address] [place] [address] 91962 UA pH 7.0 Normal 5-8 [facility] Comment on above: Order Comment: sim insert Performed By: #### 7 986333, 77756254, [id number] #### [facility] (DEFAULT) [address] [place] [address] 23377 UA Protein Negative Normal NEGATIVE [facility] Comment on above: Order Comment: sim insert Performed By: #### 7 463144, 37149448, [id number] #### [facility] (DEFAULT) [address] [place] [address] 98698 UA Spec Grav 1.020 Normal 1.001-1.[address] [place] [address] Comment on above: Order Comment: sim insert Performed By: #### 7 701113, 60386164, [id number] #### [facility] (DEFAULT) [address] [place] [address] 31611 UA Urobilinogen 0.2 mg/dL Normal 0.2-1.0 [facility] Comment on above: Order Comment: sim insert Performed By: #### 7 664724, 56233194, [id number] #### [facility] (DEFAULT) [address] [place] [address] Urine Source Clean Catch [facility] Comment on above: Order Comment: sim insert Performed By: #### 7 362192, 16705712, [id number] #### [facility] (DEFAULT) [address] [place] [address] XR Hip Complete Lefton 09-24 XR Hip [...] MD 09/25/19 3:55 pm Technologist: OCHOA NAZARIO [facility] Patient Handouton 09-24-2019 Patient Handout [facility] Progress Note - Nurseon 09-08 Progress Note - Nurse Spoke with pt reggonzález rding arrival time of 0700 and NPO status. Verbalized understanding. [Electronically Signed on: 09/22/2019 09:47 EDT] Kimberley Holden RN [Verified on: 09/22/2019 09:47 EDT] Kimberley Holden RN [facility] SARS-CoV-2 (COVID-19) PCRon 09-22-2019 COVID-19 PCR Not Detected Normal Not Detected [facility] Comment on above: Performed By: #### 7 447595, 64863349, [id number] #### [facility] (DEFAULT) [address] [place] [address] 51758 Employed in healthcare? Unknown [facility] Comment on above: Performed By: #### 7 760600, 28273902, [id number] #### [facility] (DEFAULT) [address] [place] [address] 88593 Group care resident? Unknown [facility] Comment on above: Performed By: #### 7 157629, 92748934, [id number] #### [facility] (DEFAULT) [address] [place] [address] Hospitalized due to COVID-19? Unknown [facility] Comment on above: Performed By: #### 7 503323, 64110806, [id number] #### [facility] (DEFAULT) [address] [place] [address] 37038 In ICU? Unknown [facility] Comment on above: Performed By: #### 7 854198, 27609588, [id number] #### [facility] (DEFAULT) [address] [place] [address] 41388 status? Unknown [facility] Comment on above: Performed By: #### 7 911207, 74740289, [id number] #### [facility] (DEFAULT) [address] [place] [address] 38048 Symptomatic as defined by CDC? 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 FINAL DX: PRINCIPAL: Z01.818 Encounter for other preprocedural examination SECONDARY: I10 Essential (primary) hypertension 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 K21.9 Gastro-esophageal [...] Marisela Lawrence Date Saved: 09/13/2019 09:18 am [facility] Coding Summaryon 09-06-2019 Coding Summary CODING DATE: 020 [facility] STATUS: Home PAYOR: Medicare APC DESCRIPTION 5733 Level 3 Minor Procedures ADMIT DX: REASON FOR VISIT DX: Z01.818 Encounter for other preprocedural examination I10 Essential (primary) hypertension 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 FINAL DX: PRINCIPAL: Z01.818 Encounter for other preprocedural examination SECONDARY: I10 Essential (primary) hypertension 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 However, the narrative phrase printed from the coding software may appear abbreviated, or result in slightly different terminology. Coded By: Marisela Lawrence Date Saved: 09/06/2019 09:20 am [facility] Progress Note - Nurseon 08-09 Progress Note - Nurse chart reviewed per Dr Akbar anesthesiologist, and cleared for surgery on 09/25/2019 [Electronically Signed on: 09/04/2019 14:30 EDT] Nimco Albarado RN [Verified on: 09/04/2019 14:30 EDT] Nimco Albarado RN [facility] Progress Note - Nurse Xin at Dr Aydin rosario notified that pt has positive urine culture. [Electronically Signed on: 09/04/2019 13:37 EDT] Dionne Yun RN [Verified on: 09/04/2019 13:37 EDT] Dionne Yun RN [facility] Provider Orderson 09-04-2019 Provider Orders [id number] FF [facility] C Urineon 09-03-2019 C Urine [...] S <=4 Verified Tri/Sulf S <=2/38 Verified [facility] Comment on above: Performed By: #### 1 [id number], [id number], [id number] #### [facility] (DEFAULT) [address] [place] [address] 59533 C MRSA Screenon 09-02-2019 C MRSA Screen Negative Normal [facility] Comment on above: Performed By: #### 1 [id number] #### [facility] (DEFAULT) [address] [place] [address] 48202 .Auto Diff 1on 09-01-2019 Auto [place] % 10 % Normal 1-12 [facility] Comment on above: Performed By: #### 7 773589, 99631939, [id number] #### [facility] (DEFAULT) [address] [place] [address] 53189 Baso Abs# 0.0 x10 Normal 0.0-0.2 [facility] Comment on above: Performed By: #### 7 913756, 12709444, [id number] #### [facility] (DEFAULT) [address] [place] [address] 61169 Basophils/100 WBC (Bld) 0.3 % Normal 0.2-2.0 [facility] Comment on above: Performed By: #### 7 388158, 81492707, [id number] #### [facility] (DEFAULT) [address] [place] [address] Eos Abs# 0.1 x10 Normal 0.0-0.4 [facility] Comment on above: Performed By: #### 7 091330, 36615973, [id number] #### [facility] (DEFAULT) [address] [place] [address] 05901 Eosinophils/100 WBC (Bld) 0.9 % Normal 0.9-4.0 [facility] Comment on above: Performed By: #### 7 208444, 00349087, [id number] #### [facility] (DEFAULT) [address] [place] [address] 42717 Lymphocytes (Bld) [#/Vol] 1.0 x10 Low 1.3-2.9 [facility] Comment on above: Performed By: #### 7 638808, 02721484, [id number] #### [facility] (DEFAULT) [address] [place] [address] 20890 Lymphocytes/100 WBC (Bld) 10 % Low 14-48 [facility] Comment on above: Performed By: #### 7 356554, 67657244, [id number] #### [facility] (DEFAULT) [address] [place] [address] [place] Abs# 1.0 x10 High 0.0-0.8 [facility] Comment on above: Performed By: #### 7 840648, 36725081, [id number] #### [facility] (DEFAULT) [address] [place] [address] Neut Abs# 8.0 x10 Normal 1.5-9.2 [facility] Comment on above: Performed By: #### 7 [id number], [id number], [id number] #### [facility] (DEFAULT) [address] [place] [address] Neutrophils/100 WBC (Bld) 79 % Normal 44-88 [facility] Comment on above: Performed By: #### 7 [id number], [id number], [id number] #### [facility] (DEFAULT) [address] [place] [address] Standardon 09-01-2019 eGFR Non AA 44 mL/min/1.73m2 [facility] Comment on above: Performed By: #### 7 [id number], [id number], [id number] #### [facility] (DEFAULT) [address] [place] [address] eGFR AA 54 mL/min/1.73m2 [facility] Comment on above: Result Comment: Medical Affairs Manager kody Kidney disease could be indicated at eGFRs of less than 60 ml/min/1.73m2. Kidney Failure is indicated at less than 15 ml/min/1.73m2 Performed By: #### 7 [id number], [id number], [id number] #### [facility] (DEFAULT) [address] [place] [address] Anion gap [Moles/Vol] 15.0 mmol/L Normal 5.0-19.0 [facility] Comment on above: Performed By: #### 7 [id number], [id number], [id number] #### [facility] (DEFAULT) [address] [place] [address] 31113 Calcium [Mass/Vol] 9.2 mg/dL Normal 8.9-10.3 [facility] Comment on above: Performed By: #### 7 [id number], [id number], [id number] #### [facility] (DEFAULT) [address] [place] [address] 00590 Chloride [Moles/Vol] 101 mmol/L Normal 101-111 [facility] Comment on above: Performed By: #### 7 [id number], [id number], [id number] #### [facility] (DEFAULT) [address] [place] [address] 04593 CO2 [Moles/Vol] 25 mmol/L Normal 21-32 [facility] Comment on above: Performed By: #### 7 [id number], [id number], [id number] #### [facility] (DEFAULT) [address] [place] [address] 40938 Creatinine [Mass/Vol] 1.17 mg/dL Normal 0.60-1.30 [facility] Comment on above: Performed By: #### 7 420384, [id number], [id number] #### [facility] (DEFAULT) [address] [place] [address] 77281 Glucose [Mass/Vol] 94.0 mg/dL Normal 74.0-118.0 [facility] Comment on above: Performed By: #### 7 [id number], [id number], [id number] #### [facility] (DEFAULT) [address] [place] [address] 17137 Osmolality [Osmolality] 276 mOsm/L [facility] Comment on above: Performed By: #### 7 097586, [id number], [id number] #### [facility] (DEFAULT) [address] [place] [address] 04564 Potassium [Moles/Vol] 4.0 mmol/L Normal 3.6-5.1 [facility] [place] Comment on above: Performed By: #### 7 721033, [id number], [id number] #### [facility] (DEFAULT) [address] [place] [address] Sodium [Moles/Vol] 137.0 mmol/L Normal 136.0-144 . 0 [facility] Comment on above: Performed By: #### 7 443746, [id number], [id number] #### [facility] (DEFAULT) [address] [place] [address] Urea nitrogen [Mass/Vol] 20 mg/dL Normal 8-26 [facility] Comment on above: Performed By: #### 7 194941, [id number], [id number] #### [facility] (DEFAULT) [address] [place] [address] Urea nitrogen/Creatinine [Mass ratio] 17.0 mg/mg High 4.6-16.2 [facility] Comment on above: Performed By: #### 7 [id number], [id number], [id number] #### [facility] (DEFAULT) [address] [place] [address] CBC w/ Auto Diffon 0 Erythrocyte distribution width (RBC) [Ratio] 13.9 % Normal 11.5-15.0 [facility] Comment on above: Performed By: #### 7 [id number], [id number], [id number] #### [facility] (DEFAULT) [address] [place] [address] Hematocrit (Bld) [Volume fraction] 38.5 % Normal 33.7-40.4 [facility] Comment on above: Performed By: #### 7 585677, [id number], [id number] #### [facility] (DEFAULT) [address] [place] [address] Hemoglobin (Bld) [Mass/Vol] 12.6 g/dL Normal 11.3-15.9 [facility] Comment on above: Performed By: #### 7 [id number], [id number], [id number] #### [facility] (DEFAULT) [address] [place] [address] Man Diff? Auto Normal [facility] Comment on above: Performed By: #### 7 712653, [id number], [id number] #### [facility] (DEFAULT) [address] [place] [address] 62983 MCH (RBC) [Entitic mass] 33 pg Normal 24-34 [facility] Comment on above: Performed By: #### 7 859043, [id number], [id number] #### [facility] (DEFAULT) [address] [place] [address] 10745 MCHC (RBC) [Mass/Vol] 33 g/dL Normal 26-37 [facility] [place] Comment on above: Performed By: #### 7 584541, [id number], [id number] #### [facility] (DEFAULT) [address] [place] [address] 82207 MCV (RBC) [Entitic vol] 101 fL High 81-100 [facility] Comment on above: Performed By: #### 7 650480, [id number], [id number] #### [facility] (DEFAULT) [address] [place] [address] 89157 Platelet mean volume (Bld) [Entitic vol] 9.5 fL Normal 6.3-10.2 [facility] Comment on above: Performed By: #### 7 977563, [id number], [id number] #### [facility] (DEFAULT) [address] [place] [address] 21085 Platelets (Bld) [#/Vol] 292 x10 Normal 138-427 [facility] Comment on above: Performed By: #### 7 595722, [id number], [id number] #### [facility] (DEFAULT) [address] [place] [address] 15344 RBC (Bld) [#/Vol] 3.82 x10 Normal 3.70-5.30 [facility] Comment on above: Performed By: #### 7 063506, [id number], [id number] #### [facility] (DEFAULT) [address] [place] [address] 07867 WBC (Bld) [#/Vol] 10.1 x10 Normal 3.5-10.5 [facility] Comment on above: Performed By: #### 7 766027, [id number], [id number] #### [facility] (DEFAULT) [address] [place] [address] UA Eepin2fg 09-01-2019 RBC (U) [#/Vol] None Seen [facility] Comment on above: Order Comment: Urina lysis Microscopic order added on by [employer] Expert Rules system. Performed By: #### 1 [id number], [id number], [id number] #### [facility] (DEFAULT) [address] [place] [address] UA Amorph. 1+ [facility] Comment on above: Order Comment: Urina lysis Microscopic order added on by [employer] Rules system. Performed By: #### 1 [id number], [id number], [id number] #### [facility] (DEFAULT) [address] [place] [address] UA Bacteria 4+ [facility] Comment on above: Order Comment: Urina lysis Microscopic order added on by [employer] Rules system. Performed By: #### 1 [id number], [id number], [id number] #### [facility] (DEFAULT) [address] [place] [address] UA Squam Epi Moderate [facility] Comment on above: Order Comment: Urina lysis Microscopic order added on by [employer] Expert Rules system. Performed By: #### 1 [id number], [id number], [id number] #### [facility] (DEFAULT) [address] [place] [address] UA WBC 15-20 [facility] Comment on above: Order Comment: Urina lysis Microscopic order added on by [employer] Expert Rules system. Performed By: #### 1 [id number], [id number], [id number] #### [facility] (DEFAULT) [address] [place] [address] UA w Culture if Ind Standard on 09-01-2019 Breakpoint UA [facility] Comment on above: Performed By: #### 1 [id number], [id number], [id number] #### [facility] (DEFAULT) [address] [place] [address] Color (U) Yellow [facility] Comment on above: Performed By: #### 1 [id number], [id number], [id number] #### [facility] (DEFAULT) [address] [place] [address] 43406 Culture? Yes Normal [facility] Comment on above: Performed By: #### 1 [id number], [id number], [id number] #### [facility] (DEFAULT) [address] [place] [address] 45887 Glucose (U) [Mass/Vol] Negative Normal [facility] Comment on above: Performed By: #### 1 [id number], [id number], [id number] #### [facility] (DEFAULT) [address] [place] [address] 94123 Ketones Ql (U) Negative Normal [facility] Comment on above: Performed By: #### 1 [id number], [id number], [id number] #### [facility] (DEFAULT) [address] [place] [address] 33321 Micro? Indicated [facility] Comment on above: Performed By: #### 1 [id number], [id number], [id number] #### [facility] (DEFAULT) [address] [place] [address] 33295 UA Bilirubin Negative Normal [facility] Comment on above: Performed By: #### 1 [id number], [id number], [id number] #### [facility] (DEFAULT) [address] [place] [address] 96699 UA Blood TRACE Abnormal NEGATIVE [facility] Comment on above: Performed By: #### 1 [id number], [id number], [id number] #### [facility] (DEFAULT) [address] [place] [address] 21120 UA Clarity CLEAR Normal CLEAR [facility] Comment on above: Performed By: #### 1 [id number], [id number], [id number] #### [facility] (DEFAULT) [address] [place] [address] 38031 UA Leuk Est MODERATE Abnormal NEGATIVE [facility] Comment on above: Performed By: #### 1 [id number], [id number], [id number] #### [facility] (DEFAULT) [address] [place] [address] 07265 UA Nitrite Positive Abnormal NEGATIVE [facility] Comment on above: Performed By: #### 1 [id number], [id number], [id number] #### [facility] (DEFAULT) [address] [place] [address] 96276 UA pH 5.5 Normal 5-8 [facility] Comment on above: Performed By: #### 1 [id number], [id number], [id number] #### [facility] (DEFAULT) [address] [place] [address] 57762 UA Protein Negative Normal NEGATIVE [facility] Comment on above: Performed By: #### 1 [id number], [id number], [id number] #### [facility] (DEFAULT) [address] [place] [address] 80756 UA Spec Grav 1.025 Normal 1.001-1.[address] [place] [address] Comment on above: Performed By: #### 1 [id number], [id number], [id number] #### [facility] (DEFAULT) [address] [place] [address] 41194 UA Urobilinogen 0.2 mg/dL Normal 0.2-1.0 [facility] Comment on above: Performed By: #### 1 [id number], [id number], [id number] #### [facility] (DEFAULT) [address] [place] [address] 38024 Urine Source Clean Catch Normal [facility] Comment on above: Performed By: #### 1 [id number], [id number], [id number] #### [facility] (DEFAULT) [address] [place] [address] 70555 JOINT PAIN INJECTION 09-06 JO[address]JE[address] [facility] Department of Radiology [address] [place] [address] Patient Name: VINCENT HSU : 1935 Sex: F Age: Race: White Pt. Location: Patient Status: D Ordered Date: 08/08/2018 3:50:00 PM Completed Date: 09/06/2018 03:43 PM Requesting Provider: HERMELINDO HILLMAN Attending Provider: HERMELINDO HILLMAN Report Copy To: GYPSY MCMAHON Signs & Symptoms: M16.12 Unilateral primary osteoarthritis, left hip I10 History: Riesel Comments: , Dr. Ochoa , Body Part: [...] guidance. Electronically signed by:Christy Ochoa. Transcribed by: [email or web address], User Resident: Electronically Signed by: CHRISTY OCHOA [...] [facility] Department of Radiology [address] [place] [id number] Patient Name: VINCENT HSU : 1935 Sex: F Age: Race: White Pt. 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 MEDICARE NO PC REQ [...] arthritis. Electronically signed by:Coy Jerome. Transcribed by: [email or web address], User Resident: Electronically Signed by: COY JEROME @ 08/08/2018 02:20 PM Normal [facility] Comment on above: Order Comment: , Jessie perkins left hip healing HIP LEFT 1 OR 2 VWS WITH PEL VISon 03-18-2018 HIP LEFT 1 OR 2 VWS WITH PELVIS [facility] Department of Radiology [address] [place] [address] Patient Name: VINCENT HSU : 1935 Sex: F Age: Race: White Pt. 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 Transcribed by: [email or web address], User Resident: Electronically Signed by: COY JEROME @ 03/18/2018 02:19 PM Normal [facility] Comment on above: Order Comment: , , = ========= , Ordering Provider - MIRTHA VELÁSQUEZ PA-C , HIP LEFT 1 OR 2 VWS WITH PEL VISon 01-10-2018 HIP LEFT 1 OR 2 VWS WITH PELVIS [facility] Department of Radiology [address] [place] [id number] Patient Name: VINCENT HSU : 1935 Sex: F Age: Race: White Pt. 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 Electronically signed by:Manjit Whatley. Transcribed by: [email or web address], User Resident: Electronically Signed by: MANJIT WHATLEY [...] [facility] Department of Radiology [address] [place] [id number] Patient Name: VINCENT HSU : 1935 Sex: F Age: Race: White Pt. 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 Electronically signed by:Gerson Rodriguez. Transcribed by: [email or web address], User Resident: Electronically Signed by: GERSON RODRIGUEZ [...] [facility] [address] [place] [address] Patient Name: VICNENT HSU : 1935 Sex: F Age: Race: [...] fracture Electronically signed by:Coy Jerome. Transcribed by: [email or web address], User Resident: Electronically Signed by: COY JEROME @ 09/21/2017 03:27 PM Normal [facility] Comment on above: Order Comment: , , = ========= , Ordering Rebeka MORENO-C , Vital Signs Date Time Vital Sign Value Performing Clinician Facility 05-24-2023 13:35-0400 Body height 177.8 cm MD Gypsy Mcmahon Work Phone: [facility] 05-24-2023 13:35-0400 Body mass index (BMI) [Ratio] 18.8 kg/m2 MD Gypsy Mcmahon Work Phone: [facility] 05-24-2023 13:35-0400 Body temperature 97.7 [degF] MD Gypsy Mcmahon Work Phone: [facility] 05-24-2023 13:35-0400 Body weight 59.42 kg MD Gypsy Mcmahon Work Phone: [facility] 05-24-2023 13:35-0400 Diastolic blood pressure 54 mm[Hg] MD Gypsy Mcmahon Work Phone: [facility] 05-24-2023 13:35-0400 Heart rate 63 /min MD Gypsy Mcmahon Work Phone: [facility] 05-24-2023 13:35-0400 Systolic blood pressure 127 mm[Hg] MD Gypsy Mcmahon Work Phone: [facility] 05-21-2023 10:26-0400 Body height 177.8 cm MD Gpysy Mcmahon Work Phone: [facility] 05-21-2023 09:54-0400 Body mass index (BMI) [Ratio] 18.6 kg/m2 MD Gypsy Mcmahon Work Phone: [facility] 05-21-2023 09:54-0400 Body weight 58.96 kg MD Gypsy Mcmahon Work Phone: [facility] 05-05-2023 16:40-0400 Diastolic blood pressure 71 mm[Hg] MD Jacinto Max Work Phone: [facility] 05-05-2023 16:40-0400 Systolic blood pressure 170 mm[Hg] MD Jacinto Max Work Phone: [facility] 05-05-2023 16:36-0400 Body height 177.8 cm MD Jacinto Max Work Phone: [facility] 05-05-2023 16:36-0400 Body temperature 98.1 [degF] MD Jacinto Max Work Phone: [facility] 05-05-2023 16:36-0400 Body weight 59.87 kg MD Jacinto Max Work Phone: [facility] 05-05-2023 16:36-0400 Heart rate 71 /min MD Jacinto Max Work Phone: [facility] 05-05-2023 16:36-0400 Respiratory rate 18 /min MD Jacinto Max Work Phone: [facility] 05-05-2023 16:36-0400 SaO2% (BldA) [Mass fraction] 98 % MD Jacinto Max Work Phone: [facility] 04-15-2023 13:30-0500 Body height 167.64 cm MD Jacinto Max Work Phone: [facility] 04-15-2023 13:30-0500 Body mass index (BMI) [Ratio] 20.8 kg/m2 MD Jacinto Max Work Phone: [facility] 04-15-2023 13:30-0500 Body temperature 97.2 [degF] MD Jacinto Max Work Phone: [facility] 04-15-2023 13:30-0500 Body weight 58.57 kg MD Jacinto Max Work Phone: [facility] 04-15-2023 13:30-0500 Diastolic blood pressure 75 mm[Hg] MD Jacinto Max Work Phone: [facility] 04-15-2023 13:30-0500 Heart rate 60 /min MD Jacinto Max Work Phone: [facility] 04-15-2023 13:30-0500 Systolic blood pressure 165 mm[Hg] MD Jacinto Max Work Phone: [facility] 02-26-2023 10:00-0500 Body height 167.64 cm MD Jacinto Max Work Phone: [facility] 02-26-2023 10:00-0500 Diastolic blood pressure 76 mm[Hg] MD Jacinto Max Work Phone: [facility] 02-26-2023 10:00-0500 Systolic blood pressure 156 mm[Hg] MD Jacinto Max Work Phone: [facility] 02-25-2023 10:15-0500 Body height 175.26 cm MD Jacinto Max Work Phone: [facility] 02-25-2023 10:15-0500 Body weight 59.1 kg MD Jacinto Max Work Phone: [facility] 02-25-2023 10:02-0500 Diastolic blood pressure 74 mm[Hg] MD Jacinto Max Work Phone: [facility] 02-25-2023 10:02-0500 Heart rate 67 /min MD Jacinto Max Work Phone: [facility] 02-25-2023 10:02-0500 Systolic blood pressure 157 mm[Hg] MD Jacinto Max Work Phone: [facility] 02-18-2023 14:00-0500 Body height 167.64 cm Jacinto Max Other [facility] 02-18-2023 14:00-0500 Body mass index (BMI) [Ratio] 20.66 kg/m2 Jacinto Max Other [facility] [employer] Other 02-18-2023 14:00-0500 Body temperature 97.2 [degF] Jacinto Max Other [facility] [employer] Other 02-18-2023 14:00-0500 Body weight 58.06 kg Jacinto Max Other [facility] [employer] Other 02-18-2023 14:00-0500 Body weight 58.05 kg MD Jacinto Max Work Phone: [facility] 02-18-2023 14:00-0500 Diastolic blood pressure 66 mm[Hg] Jacinto Max Other [facility] 02-18-2023 14:00-0500 Systolic blood pressure 150 mm[Hg] Jacinto Max Other [facility] 02-16-2023 13:30-0500 Body height 167.64 cm Gypsy Mcmahon Other [facility] 02-16-2023 13:30-0500 Body mass index (BMI) [Ratio] 20.66 kg/m2 Gypsy Mcmahon Other [facility] [employer] Other 02-16-2023 13:30-0500 Body weight 58.06 kg Gypsy Mcmahon Other [facility] [employer] Other 02-16-2023 13:30-0500 Body weight 58.05 kg MD Jacinto Max Work Phone: [facility] 02-16-2023 13:30-0500 Diastolic blood pressure 68 mm[Hg] Gypsy Mcmahon Other [facility] 02-16-2023 13:30-0500 SaO2% (BldA) [Mass fraction] 96 % Gypsy Mcmahon Other [facility] [employer] Other 02-16-2023 13:30-0500 Systolic blood pressure 140 mm[Hg] Gypsy Mcmahon Other [facility] 02-04-2023 09:09-0500 Heart rate 84 /min MALATHI DEB [facility] 02-04-2023 09:09-0500 SaO2% (BldA) [Mass fraction] 95 % MALATHI DEB [facility] 02-04-2023 09:08-0500 Diastolic blood pressure 88 mm[Hg] MALATHI DEB [facility] 02-04-2023 09:08-0500 Mean blood pressure 121 mm[Hg] MALATHI DEB [facility] 02-04-2023 09:08-0500 Systolic blood pressure 188 mm[Hg] MALATHI DEB [facility] 02-04-2023 09:08-0500 Respiratory rate 20 /min MALATHI DEB [facility] 02-04-2023 09:08-0500 Body temperature 97.7 [degF] MALATHI DEB [facility] 02-03-2023 09:15-0500 Heart rate 77 /min MALATHI DBE [facility] 02-03-2023 09:15-0500 SaO2% (BldA) [Mass fraction] 97 % MALATHI DEB [facility] 02-03-2023 09:14-0500 Respiratory rate 18 /min MALATHI DEB [facility] 02-03-2023 09:14-0500 Diastolic blood pressure 97 mm[Hg] MALATHI DEB [facility] 02-03-2023 09:14-0500 Mean blood pressure 130 mm[Hg] MALATHI DEB [facility] 02-03-2023 09:14-0500 Systolic blood pressure 197 mm[Hg] MALATHI DEB [facility] 02-03-2023 09:13-0500 Body temperature 98.06 [degF] MALATHI DEB [facility] 02-02-2023 09:10-0500 Heart rate 75 /min MALATHI DEB [facility] 02-02-2023 09:10-0500 SaO2% (BldA) [Mass fraction] 93 % MALATHI DEB [facility] 02-02-2023 09:09-0500 Respiratory rate 20 /min MALATHI DEB [facility] 02-02-2023 09:08-0500 Diastolic blood pressure 87 mm[Hg] MALATHI DEB [facility] 02-02-2023 09:08-0500 Mean blood pressure 123 mm[Hg] MALATHI DEB [facility] 02-02-2023 09:08-0500 Systolic blood pressure 194 mm[Hg] MALATHI DEB [facility] 02-02-2023 09:08-0500 Body temperature 97.7 [degF] MALATHI DEB [facility] 02-01-2023 09:50-0500 Heart rate 77 /min MALATHI DEB [facility] 02-01-2023 09:50-0500 Mean blood pressure 115 mm[Hg] MALATHI DEB [facility] 02-01-2023 09:10-0500 Heart rate 84 /min MALATHI DEB [facility] 01-29-2023 11:26-0500 Heart rate 75 /min MALATHI DEB [facility] 01-29-2023 11:26-0500 SaO2% (BldA) [Mass fraction] 95 % MALATHI DEB [facility] 01-29-2023 11:26-0500 Respiratory rate 16 /min MALATHI DEB [facility] 01-29-2023 11:25-0500 Diastolic blood pressure 83 mm[Hg] MALATHI DEB [facility] 01-29-2023 11:25-0500 Mean blood pressure 108 mm[Hg] MALATHI DEB [facility] 01-29-2023 11:25-0500 Systolic blood pressure 158 mm[Hg] MALATHI DEB [facility] 01-29-2023 11:25-0500 Body temperature 98.06 [degF] MALATHI DEB [facility] 01-29-2023 10:54-0500 Heart rate 74 /min MALATHI DEB [facility] 01-29-2023 10:54-0500 SaO2% (BldA) [Mass fraction] 97 % MALATHI DEB [facility] 01-29-2023 10:54-0500 Respiratory rate 16 /min MALATHI VIEIRA [facility] 01-29-2023 10:53-0500 Body temperature 97.52 [degF] MALATHI VIEIRA [facility] 01-29-2023 10:53-0500 Diastolic blood pressure 84 mm[Hg] MALATHI VIEIRA [facility] 01-29-2023 10:53-0500 Mean blood pressure 104 mm[Hg] MALATHI VIEIRA [facility] 01-29-2023 10:53-0500 Systolic blood pressure 146 mm[Hg] MALATHI VIEIRA [facility] 01-12-2023 13:30-0500 Body height 167.64 cm Hunter Brown Other [facility] [employer] Other 01-12-2023 13:30-0500 Body mass index (BMI) [Ratio] 22 kg/m2 Hunter Brown Other [employer] Other 01-12-2023 13:30-0500 Body weight 61.83 kg Hunter Brown Other [employer] Other 01-12-2023 13:30-0500 Diastolic blood pressure 60 mm[Hg] Hunter Brown Other [employer] Other 01-12-2023 13:30-0500 Systolic blood pressure 137 mm[Hg] Hunter Brown Other [employer] Other 01-05-2023 11:30-0500 Body height 167.64 cm Gypsy Mcmahon Other [employer] Other 01-05-2023 11:30-0500 Body mass index (BMI) [Ratio] 21.63 kg/m2 Gypsy Mcmahon Other [employer] Other 01-05-2023 11:30-0500 Body weight 60.78 kg Gypsy Mcmahon Other [employer] Other 01-05-2023 11:30-0500 Diastolic blood pressure 72 mm[Hg] Gypsy Mcmahon Other [employer] Other 01-05-2023 11:30-0500 Systolic blood pressure 162 mm[Hg] Gypsy Mcmahon Other [employer] Other 12-28-2022 13:30-0500 Body height 167.64 cm Malathi Velázquez Other [employer] Other 12-28-2022 13:30-0500 Body mass index (BMI) [Ratio] 19.98 kg/m2 Malathi Velázquez Other [employer] Other 12-28-2022 13:30-0500 Body weight 56.16 kg Malathi Velázquez Other [employer] Other 12-28-2022 13:30-0500 Diastolic blood pressure 78 mm[Hg] Malathi Velázquez Other [employer] Other 12-28-2022 13:30-0500 Systolic blood pressure 146 mm[Hg] Malathi Velázquez Other [employer] Other 12-15-2022 11:15-0500 Body height 167.64 cm Gypsy Mcmahon Other [employer] Other 12-15-2022 11:15-0500 Body mass index (BMI) [Ratio] 21.53 kg/m2 Gypsy Mcamhon Other [employer] Other 12-15-2022 11:15-0500 Body weight 60.51 kg Gypsy Mcmahon Other [employer] Other 12-15-2022 11:15-0500 Diastolic blood pressure 73 mm[Hg] Gypsy Mcamhon Other [employer] Other 12-15-2022 11:15-0500 Systolic blood pressure 178 mm[Hg] Gypsy Mcmahon Other [employer] Other 09-22-2022 14:14-0400 Blood Pressure Location MALATHI DEB [facility] 09-22-2022 14:14-0400 Diastolic blood pressure 90 mm[Hg] MALATHI DEB [facility] 09-22-2022 14:14-0400 Heart rate 78 /min MALATHI DEB [facility] 09-22-2022 14:14-0400 Systolic blood pressure 142 mm[Hg] MALATHI DEB [facility] 09-01-2022 14:15-0400 Body height 167.64 cm Gypsy Mcmahon Other [employer] Other 09-01-2022 14:15-0400 Body mass index (BMI) [Ratio] 21.14 kg/m2 Gypsy Mcmahon Other [employer] Other 09-01-2022 14:15-0400 Body weight 59.42 kg Gypsy Mcmahon Other [employer] Other 09-01-2022 14:15-0400 Diastolic blood pressure 56 mm[Hg] Gypsy Mcmahon Other [employer] Other 09-01-2022 14:15-0400 Systolic blood pressure 132 mm[Hg] Gypsy Mcmahon Other [employer] Other 06-09-2022 13:42-0400 Diastolic blood pressure 71 mm[Hg] Marvin [facility] 06-09-2022 13:42-0400 Heart rate 59 /min [employer] [facility] 06-09-2022 13:42-0400 Systolic blood pressure 183 mm[Hg] Marvin KWON [facility] 04-24-2022 11:30-0400 Body height 167.64 cm Hunter Brown Other [employer] Other 04-24-2022 11:30-0400 Body mass index (BMI) [Ratio] 22.11 kg/m2 Hunter Brown Other [employer] Other 04-24-2022 11:30-0400 Body weight 62.14 kg Hunter Brown Other [employer] Other 04-24-2022 11:30-0400 Diastolic blood pressure 70 mm[Hg] Hunter Brown Other [employer] Other 04-24-2022 11:30-0400 Systolic blood pressure 159 mm[Hg] Hunter Brown Other [employer] Other 04-07-2022 14:15-0500 Body height 167.64 cm Gypsy Mcmahon Other [employer] Other 04-07-2022 14:15-0500 Body mass index (BMI) [Ratio] 21.79 kg/m2 Gypsy Mcmahon Other [employer] Other 04-07-2022 14:15-0500 Body weight 61.24 kg Gypsy Mcmahon Other [employer] Other 04-07-2022 14:15-0500 Diastolic blood pressure 62 mm[Hg] Gypsy Mcmahon Other [employer] Other 04-07-2022 14:15-0500 Systolic blood pressure 130 mm[Hg] Gypsy Mcmahon Other [employer] Other 03-11-2022 13:35-0500 Body temperature 97.5 [degF] MD Gypsy Mcmahon Work Phone: [facility] 03-11-2022 13:35-0500 Diastolic blood pressure 61 mm[Hg] MD Gypsy Mcmahon Work Phone: [facility] 03-11-2022 13:35-0500 Heart rate 60 /min MD Gypsy Mcmahon Work Phone: [facility] 03-11-2022 13:35-0500 Respiratory rate 18 /min MD Gypsy Mcmahon Work Phone: [facility] 03-11-2022 13:35-0500 SaO2% (BldA) [Mass fraction] 96 % MD Gypsy Mcmahon Work Phone: [facility] 03-11-2022 13:35-0500 Systolic blood pressure 135 mm[Hg] MD Gypsy Mcmahon Work Phone: [facility] 02-16-2022 10:45-0500 Body height 167.64 cm Gypsy Mcmahon Other [employer] Other 02-16-2022 10:45-0500 Body mass index (BMI) [Ratio] 21.46 kg/m2 Gypsy Mcmahon Other [employer] Other 02-16-2022 10:45-0500 Body weight 60.33 kg Gypsy Mcmahon Other [employer] Other 02-16-2022 10:45-0500 Diastolic blood pressure 70 mm[Hg] Gypsy Mcmahon Other [employer] Other 02-16-2022 10:45-0500 Systolic blood pressure 120 mm[Hg] Gypsy Mcmahon Other [employer] Other 02-11-2022 12:00-0500 Body height 172.72 cm Hunter Brown Other [employer] Other 02-11-2022 12:00-0500 Body mass index (BMI) [Ratio] 20.83 kg/m2 Hunter Brown Other [employer] Other 02-11-2022 12:00-0500 Body weight 62.14 kg Hunter Brown Other [employer] Other 02-11-2022 12:00-0500 Diastolic blood pressure 68 mm[Hg] Hunter Brown Other [employer] Other 02-11-2022 12:00-0500 Systolic blood pressure 144 mm[Hg] Hunter Brown Other [employer] Other 01-05-2022 10:30-0500 Body height 172.72 cm Hunter Brown Other [employer] Other 01-05-2022 10:30-0500 Body mass index (BMI) [Ratio] 22.04 kg/m2 Hunter Brown Other [employer] Other 01-05-2022 10:30-0500 Body weight 65.77 kg Hunter Brown Other [employer] Other 01-05-2022 10:30-0500 Diastolic blood pressure 78 mm[Hg] Hunter Brown Other [employer] Other 01-05-2022 10:30-0500 Systolic blood pressure 166 mm[Hg] Hunter Brown Other [employer] Other 03-27-2021 12:00-0500 Body height 172.72 cm Giana Griffiths Other [employer] Other 03-27-2021 12:00-0500 Body mass index (BMI) [Ratio] 22.96 kg/m2 Giana Rhoadeskes Other [employer] Other 03-27-2021 12:00-0500 Body weight 68.49 kg Giana Jfkes Other [employer] Other 01-27-2021 10:45-0500 Body height 172.72 cm Giana Jfkes Other [employer] Other 01-27-2021 10:45-0500 Body mass index (BMI) [Ratio] 24.48 kg/m2 Giana Jfkes Other [employer] Other 01-27-2021 10:94-3112 Body weight 73.03 kg Giana Griffiths Other [facility] [employer] Other Encounters Encounter Date Encounter Type Care Provider Facility Start: 06-23-2023 End: 06-24-2023 ambulatory [facility] Start: 06-17-2023 End: 06-17-2023 ambulatory [facility] Start: 06-15-2023 End: 06-15-2023 ambulatory MALATHI VIEIRA Facility: [facility] Start: 06-15-2023 End: 06-15-2023 Patient encounter procedure MALATHI VIEIRA [facility] Start: 05-28-2023 End: 05-28-2023 ambulatory Monie L Ly Facility:[facility] Start: 05-28-2023 End: 05-28-2023 ambulatory MD Gypsy Mcmahon Work Phone: [facility] Work Phone: Start: 05-28-2023 End: 05-28-2023 Patient encounter procedure MD Gypsy Mcmahon Work Phone: [facility]-CT Scan [facility] Work Phone: Start: 05-25-2023 Non-patient / Non-visit MD Gypsy Mcmahon Work Phone: [facility] Work Phone: Start: 05-24-2023 End: 05-24-2023 Patient encounter procedure MD Gypsy Mcmahon Work Phone: [facility] Work Phone: Start: 05-21-2023 End: 05-21-2023 Patient encounter procedure MD Gypsy Mcmahon Work Phone: [facility] Work Phone: Start: 05-06-2023 Non-patient / Non-visit MD Gypsy Mcmahon Work Phone: [facility] Work Phone: Start: 05-05-2023 End: 05-05-2023 Emergency department patient visit Marvin Garcia Facility:[facility] Start: 05-05-2023 End: 05-05-2023 Emergency department patient visit MD Jacinto Max Work Phone: [facility] Work Phone: Start: 05-01-2023 Non-patient / Non-visit MD Jacinto Max Work Phone: [facility] Work Phone: Start: 04-15-2023 End: 04-15-2023 Patient encounter procedure MD Jacinto Max Work Phone: [facility] Infectious Disease Work Phone: Start: 04-06-2023 Non-patient / Non-visit MD Jacinto Max Work Phone: [facility] Work Phone: Start: 03-12-2023 End: 03-12-2023 ambulatory Jacinto Max Other [facility] [employer] Other Start: 03-12-2023 Telephone encounter Jacinto BA G Infectious Disease Start: 03-11-2023 End: 03-11-2023 ambulatory Jacinto Max Other [facility] [employer] Other Start: 03-11-2023 Telephone encounter Jacinto Bustamante Infect[facility] Start: 03-02-2023 End: 03-02-2023 ambulatory Gypsy Mcmahon Other [facility] [employer] Other Start: 03-02-2023 Telephone encounter Gypsy Mcmahon [facility] Start: 02-26-2023 End: 02-26-2023 Patient encounter procedure MD Jacinto Max Work Phone: [facility]- Start: 02-25-2023 End: 02-25-2023 ambulatory Jacinto Max Facility:[facility] Start: 02-25-2023 End: 02-25-2023 ambulatory MD Jacinto Max Work Phone: [facility] Work Phone: Start: 02-25-2023 End: 02-25-2023 Discharged Recurring MD Jacinto Max Work Phone: [facility]-Infusion Therapy - [facility] Work Phone: Start: 02-18-2023 End: 02-18-2023 ambulatory Jacinto Max Other [employer] Other Start: 02-18-2023 Office outpatient ne w 45 minutes Jacinto Max [facility] Infectious Disease Start: 02-18-2023 End: 02-18-2023 Patient encounter procedure MD Jacinto Max Work Phone: [facility] Infectious Disease Work Phone: Start: 02-16-2023 End: 02-16-2023 ambulatory Gypsy Mcmahon Other [employer] Other Start: 02-16-2023 Office outpatient visit 15 minutes Gypsy Mcmahon [facility] Start: 02-16-2023 End: 02-16-2023 Patient encounter procedure MD Jacinto Max Work Phone: [facility] Work Phone: Start: 01-29-2023 End: 05-05-2023 ambulatory MALATHI VIEIRA Facility:[facility] Start: 01-29-2023 End: 01-29-2023 Patient encounter procedure MALATHI VIEIRA [facility] Start: 01-29-2023 End: 05-05-2023 Recurring MALATHI VIEIRA [facility] Start: 01-26-2023 End: 01-26-2023 Patient encounter procedure MALATHI VIEIRA [facility] Start: 01-26-2023 End: 01-26-2023 ambulatory MALATHI VIEIRA [facility] [employer] Other Start: 01-26-2023 Telephone encounter Hunter brady [facility] Start: 01-20-2023 End: 01-20-2023 ambulatory Hunter Brown Other [employer] Other Start: 01-20-2023 Telephone encounter Hunter brady [facility] Start: 01-12-2023 End: 01-12-2023 ambulatory Hunter Brown Other [employer] Other Start: 01-12-2023 Office outpatient visit 25 minutes Hunter Brown [facility] Start: 01-12-2023 End: 01-12-2023 Patient encounter procedure MD Jacinto Max Work Phone: [facility] Gastroenterology Work Phone: Start: 01-11-2023 End: 01-11-2023 ambulatory Gypsy Mcmahon Other [employer] Other Start: 01-11-2023 Telephone encounter Gypsy Mcmahon [facility] Start: 01-05-2023 End: 01-05-2023 ambulatory Gypsy Mcmahon Other [employer] Other Start: 01-05-2023 Telephone encounter Gypsy Mcmahon [facility] Start: 01-05-2023 Transitional care manage srvc 14 day discharge Gypsy Mcmahon [facility] Start: 01-05-2023 End: 01-05-2023 Patient encounter procedure MD Jacinto Max Work Phone: [facility] Work Phone: Start: 12-30-2022 End: 12-30-2022 ambulatory Malathi Hoodmadelinedoug Other [employer] Other Start: 12-30-2022 Telephone encounter Malathi arias [facility] Start: 12-28-2022 End: 12-28-2022 ambulatory Malathi Melania Other [employer] Other Start: 12-28-2022 Office outpatient visit 15 minutes Malathi Melania [facility] Start: 12-28-2022 End: 12-28-2022 Patient encounter procedure MD Jacinto Max Work Phone: [facility] Work Phone: Start: 12-15-2022 End: 12-15-2022 ambulatory Gypsy Mcmahon Other [employer] Other Start: 12-15-2022 Office outpatient visit 15 minutes Gypsy Mcmahon [facility] Start: 12-15-2022 Telephone encounter Gypsy Mcmahon [facility] Start: 12-15-2022 End: 12-15-2022 Patient encounter procedure MD Jacinto Max Work Phone: [facility] Work Phone: Start: 11-11-2022 End: 11-11-2022 ambulatory EHAB [facility] Start: 10-29-2022 End: 10-29-2022 ambulatory Hunter Brown Facility:[facility] Start: 09-22-2022 End: 09-22-2022 ambulatory MALATHI VIEIRA Facility:[facility] Start: 09-22-2022 End: 09-22-2022 Patient encounter procedure MALATHI VIEIRA [facility] Start: 09-10-2022 End: 09-10-2022 ambulatory Jose G Ellington Other [employer] Other Start: 09-10-2022 Nursing evaluation o f patient and report Jose G Ellington [facility] Start: 09-08-2022 End: 09-08-2022 ambulatory Hunter Galoormack Other [employer] Other Start: 09-08-2022 Telephone encounter Hunter Palomo [facility] Start: 09-01-2022 End: 09-01-2022 ambulatory Gypsy Mcmahon Other [employer] Other Start: 09-01-2022 Office outpatient visit 15 minutes Gypsy Mcmahon [facility] Start: 08-27-2022 End: 08-27-2022 ambulatory Gypsy Mcmahon Other [employer] Other Start: 08-27-2022 Telephone encounter Gypsy Mcmahon [facility] Start: 06-30-2022 End: 06-30-2022 ambulatory AB [facility] Start: 06-09-2022 End: 06-09-2022 Patient encounter procedure Marvin Doug KWON [facility] [place] Start: 05-27-2022 End: 05-28-2022 ambulatory MALATHI VIEIRA Facility: Start: 05-19-2022 End: 05-19-2022 Patient encounter procedure MALATHI VIEIRA [facility] [place] [place] Start: 05-14-2022 End: 05-14-2022 ambulatory Gypsy Mcmahon Other [employer] Other Start: 05-14-2022 Telephone encounter Gypsy Mcmahon [facility] Start: 05-11-2022 End: 05-12-[address] GYPSY MCMAHON Facility:[facility] Start: 05-01-2022 (Televisit) Televisit Gypsy Evangelista [facility] Start: 05-01-2022 End: 05-01-2022 ambulatory Gypsy Mcmahon Other [employer] Other Start: 05-01-2022 Telephone encounter Gypsy Mcmahon [facility] Start: 04-28-2022 End: 04-29-[address] GYPSY MCMAHON Facility:[facility] Start: 04-24-2022 End: 04-24-2022 ambulatory Hunter Brown Other [employer] Other Start: 04-24-2022 Office outpatient visit 15 minutes Hunter Brown [facility] Gastroenter[facility] Start: 04-16-2022 End: 04-16-2022 ambulatory Gypsy Mcmahon Other [employer] Other Start: 04-16-2022 Telephone encounter Gypsy Mcmahon [facility] Start: 04-14-2022 End: 04-14-[address] GYPSY MCMAHON Facility:[facility] Start: 04-07-2022 End: 04-07-2022 ambulatory Gypsy Mcmahon Other [employer] Other Start: 04-07-2022 Office outpatient visit 15 minutes Gypsy Mcmahon [facility] Start: 04-03-2022 End: 04-03-2022 ambulatory Gypsy Mcmahon Other [employer] Other Start: 04-03-2022 Telephone encounter Gypsy Mcmahon [facility] Start: 03-30-2022 End: 03-30-2022 Departed Referred MD Gypsy Mcmahon Work Phone: [facility] Work Phone: Start: 03-30-2022 End: 03-30-2022 ambulatory MD Gypsy Mcmahon Work Phone: [facility] Work Phone: Start: 03-30-2022 Nursing evaluation o f patient and report Gypsy Mcmahon [facility] Start: 03-20-2022 End: 03-21-[address] GYPSY MCMAHON Facility:[facility] Start: 03-19-2022 End: 03-19-2022 ambulatory Hunter Brown Other [employer] Other Start: 03-19-2022 Telephone encounter Hunter brady [facility] Start: 03-11-2022 Registered Recurring MD Gypsy Mcmahon Work Phone: [facility]Infusion Therapy - [facility] Work Phone: Start: 02-23-2022 End: 02-24-[address] GYPSY MCMAHON Facility:[facility] Start: 02-19-2022 End: 02-19-2022 ambulatory Gypsy Mcmahon Other [employer] Other Start: 02-19-2022 Telephone encounter Gypsy Mcmahon [facility] Start: 02-17-2022 End: 02-18-[address] GYPSY MCMAHON Facility:[facility] Start: 02-16-2022 End: 02-16-2022 ambulatory Gypsy Mcmahon Other [employer] Other Start: 02-16-2022 Office outpatient visit 15 minutes Gypsy Mcmahon [facility] Start: 02-16-2022 End: 02-16-2022 Departed Referred MD Gypsy Mcmahon Work Phone: [facility] Work Phone: Start: 02-11-2022 End: 02-11-2022 ambulatory Hunter Brown Other [employer] Other Start: 02-11-2022 Office outpatient visit 15 minutes Hunter Brown [facility] Start: 02-11-2022 Telephone encounter Hunter brady [facility] Start: 01-26-2022 End: 01-27-[address] GYPSY MCMAHON Facility:[facility] Start: 01-15-2022 End: 01-16-[address] GYPSY MCMAHON Facility:[facility] Start: 01-06-2022 End: 01-06-2022 ambulatory Hunter Brown Other [employer] Other Start: 01-06-2022 Telephone encounter Hunter brady [facility] Start: 01-05-2022 End: 01-06-2022 ambulatory CLAU Shrestha [facility] [employer] Other Start: 01-05-2022 Office outpatient visit 25 minutes Hunter Brown [facility] Start: 12-27-2021 End: 12-27-[address] REY MONTGOMERY Facility:[facility] Start: 12-18-2021 End: 12-19-2021 ambulatory CLAU NASCIMENTO Facility:[facility] Start: 12-08-2021 End: 12-09-[address] GYPSY MCMAHON Facility:[facility] Start: 11-18-2021 End: 11-18-2021 ambulatory Hunter Brown Other [employer] Other Start: 11-18-2021 Telephone encounter Hunter brady [...] 08-18-2021 End: 08-18-2021 ambulatory Giana Griffiths Other [employer] Other Start: 08-18-2021 Telephone encounter Giana Griffiths [facility] Gastroenterology Start: 08-12-2021 End: 08-12-[address] GYPSY MCMAHON Facility: Start: 04-22-2021 End: 04-22-2021 ambulatory Giana Jfluis Other [employer] Other Start: 04-22-2021 Telephone encounter Giana Jfluis [facility] Gastroenter[facility] Start: 03-27-2021 End: 03-27-2021 ambulatory Giana Jian Other [employer] Other Start: 03-27-2021 Office outpatient visit 25 minutes Giana Jfluis [facility] G[facility] Start: 01-27-2021 End: 01-27-2021 ambulatory Giana Jfluis Other [employer] Other Start: 01-27-2021 Office outpatient visit 25 minutes Giana Jian [facility] Start: 01-27-2021 Telephone encounter Giana Griffiths [facility] G[facility] Procedures Date Procedure Procedure Detail Performing [...] 03-30-2022 Bacteria identified in Urine by Culture [facility] Bacteria identified in Stool by Culture [facility] Bacteria identified in Urine by Culture [facility] Elastase.pancreatic [Mass/mass] in Stool [facility] Patient referral [facility] Work Phone: [facility] Immunizations Immunization Date Immunization Notes Care Provider Bob henry 02-16-2022 Shingrix 50 MCG/0.5M L; Translations: [Shingrix 50 MCG/0.5ML] Hunter Brown Other [employer] Other 01-15-2022 influenza virus vaccine, unspecified formulation MALATHI VIEIRA [facility] 01-15-2022 SARS-CoV-2 (COVID-19 ) [id number] MALATHI VIEIRA [facility] 01-23-2021 SARS-CoV-2 (COVID-19 ) mRNA BNT-162b2 vax MALATHI DEB [facility] 01-06-2021 influenza virus vaccine, unspecified formulation MALATHI DEB [facility] 03-27-2020 SARS-CoV-2 (COVID-19 ) mRNA BNT-162b2 vax MALATHI DEB [facility] 03-04-2020 SARS-CoV-2 (COVID-19 ) mRNA BNT-162b2 vax MALATHI DEB [facility] 12-06-2019 influenza virus vaccine, unspecified formulation MALATHI DEB [facility] 12-14-2018 influenza virus vaccine, unspecified formulation MALATHI DEB [facility] 02-02-2018 influenza virus vaccine, unspecified formulation MALATHI DEB [facility] 11-08-2017 pneumococcal polysaccharide vaccine, 23 valent MALATHI DEB [facility] 11-02-2017 influenza virus vaccine, unspecified formulation MALATHI DEB [facility] 12-09-2016 influenza virus vaccine, unspecified formulation MALATHI DEB [facility] 12-02-2016 influenza virus vaccine, unspecified formulation MALATHI DEB [facility] 12-17-2015 influenza virus vaccine, unspecified formulation MALATHI DEB [facility] 10-10-2015 influenza virus vaccine, unspecified formulation MALATHI VIEIRA [facility] 11-19-2014 influenza virus vaccine, unspecified formulation MALATHI VIEIRA [facility] 11-09-2014 pneumococcal polysaccharide vaccine, 23 valent MALATHI VIEIRA [facility] NEGATED: Highlighted row has not occurred!01-26-2023 influenza virus vaccine, unspecified formulation MALATHI VIEIRA [facility] Payers Date Payer Category Payer Self-pay [id number] 1958 [facility] [id number] 1958 Medicare [id number] 2.1 [id number] 1936 Unknown [id number] 2.16.84 0.1.843400.3.579.2.593 1936 Unknown [id number] 2.16.84 0.1.394751.3.579.2.593 1936 Unknown [id number] 2.16.84 0.1.640900.3.579.2.593 1936 Unknown [id number] 2.16.84 0.1.530118.3.579.2.593 1936 Unknown [id number] 2.16.84 0.1.778852.3.579.2.593 1936 Unknown [id number] 2.16.84 0.1.782234.3.579.2.593 1936 Unknown [id number] 2.16.84 0.1.530207.3.579.2.593 1936 Unknown [id number] 2.16.84 0.1.106177.3.579.2.593 1936 Unknown [id number] 2.16.84 0.1.821641.3.579.2.593 1936 Unknown [id number] 2.16.84 0.1.312470.3.579.2.593 1936 Unknown [id number] 2.16.84 0.1.301731.3.579.2.593 1936 Unknown [id number] 2.16.84 0.1.463335.3.579.2.593 1936 Unknown [id number] 2.16.84 0.1.288543.3.579.2.593 1936 Unknown [id number] 2.16.84 0.1.775839.3.579.2.593 1936 Unknown [id number] 2.16.84 0.1.793874.3.579.2.593 1936 Unknown [id number] 2.16.84 0.1.975270.3.579.2.593 1936 Unknown [id number] 2.16.84 0.1.024714.3.579.2.593 1936 Unknown [id number] 2.16.84 0.1.164555.3.579.2.593 1936 Unknown [id number] 2.16.84 0.1.076642.3.579.2.593 1936 Unknown [id number] 2.16.84 0.1.585112.3.579.2.593 1936 Unknown [id number] 2.16.84 0.1.205065.3.579.2.593 1936 Unknown [id number] 2.16.8 40.1.283925.3.579.2.1286 1936 Unknown [id number] 2.16.8 40.1.760334.3.579.2.1286 1936 Unknown [id number] 2.16.8 40.1.176364.3.579.2.727 1936 Unknown [id number] 2.16.8 40.1.835206.3.579.2.727 1936 Unknown [id number] 2.16.8 40.1.546982.3.579.2.727 1936 Unknown [id number] 2.16.8 40.1.402180.3.579.2.727 Unknown [id number] 2.16.8 40.1.235479.3.579.2.531 Unknown [id number] 2.16.8 40.1.906404.3.579.2.531 Social History Date Type Detail Facility Unknown if ever smoked [facility] Other Sex Assigned At [facility] Start: 1935 Sex Assigned At Female F [facility] Start: 05-19-2022 End: 06-09-2022 Tobacco smoking status Ex-smoker (finding) [facility] Start: 09-22-2022 Tobacco smoking status Never [facility] Start: 05-05-2023 Tobacco smoking stat [facility] Never smoked tobacco (finding) [facility] Functional Status Date Assessment Result Facility 01-26-2023 Functional Status N/A [facility] 09-22-2022 Functional Status N/A [facility] 06-09-2022 Functional Status N/A [facility] 05-19-2022 Functional Status N/A 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 Preventative measures were discussed. Vitamin C wbvt-xkk-cbwwleh recommended as well as topical Thera workx [...] n due to immunosuppression (ICD-10 - Z91.89) curated.by Other 01-09-2024 Evaluation note* Encounter Date Diagnosis [...] pain. Feb, Pain, unspecified (ICD-10 - R52) curated.by Other 12-19-2023 Hospital Discharge instructions Patient Education 01/26/2023 16:05:17 Urinary Tract Infection, Adult, Txtn-kv-Zflp Urinary Tract Infection, Adult A urinary tract [...] Follow these instructions at home: Medicines Take ndwr-zhw-qbnywmm and prescription medicines only as told by [...] provider. Document Revised: 09/06/2020 Document Reviewed: 09/06/2020 [employer] Patient Education 2022 [email or web address]. Follow Up Care 06/09/2022 14:50:19 With:MALATHI VIEIRA PA-C, URL Address: [address] [place] [address] [phone] When: Unknown Comments:f/u in Spring [facility] [place] 12-13-2023 Evaluation note* Encounter Date Diagnosis Assessment Notes Treatment Notes Treatment Clinical Notes Jan, Diarrhea (ICD-10 - R19.7) curated.by Other 12-05-2023 Evaluation note* Encounter Date Diagnosis [...] a day, we will re-test for C-diff curated.by Other 11-28-2023 Evaluation note* Encounter Date Diagnosis Assessment Notes Treatment Notes Treatment Clinical Notes Dec, Clostridium difficile colitis (ICD-10 - A04.72) Finish meds as prescribed. (cipro, Flagyl) Followup w Dr. Brown as scheduled. Understands the c diff could recur. Followup as needed Discussed good nutrition and healthy diet. curated.by Other 11-20-2023 Evaluation note* Encounter Date Diagnosis Assessment Notes Treatment Notes Treatment Clinical Notes Dec, Diarrhea, unspecified type (ICD-10 - R19.7) Pt appears to be having secondary from viral infection. There is no abdominal pain on exam and pt is afebrile which is reassuring. C. diff infection is a possibility as she was recently treated [facility] for a UTI, will check [...] Pt understands and agrees with the plan. curated.by Other 11-07-2023 Evaluation note* Encounter Date Diagnosis Assessment Notes Treatment Notes Treatment Clinical Notes Dec, Frequent UTI (ICD-10 - N39.0) curated.by Other 11-07-2023 Evaluation note* Encounter Date Diagnosis [...] w Dr. Licea today. Consider PT at [facility] or [facility] [place]. curated.by Other [facility] [...] Rfl: miscellaneous medical supply (Blood Pressure Cuff) [facility], 1 kit in the morning and at [...] Education 09/22/2022 15:32:53 Urinary Tract Infection, Adult, Knxr-bu-Kdoh Urinary Tract Infection, Adult A urinary tract [...] Follow these instructions at home: Medicines Take tpzi-jhp-kpltbkv and prescription medicines only as told by [...] provider. Document Revised: 09/06/2020 Document Reviewed: 09/06/2020 [employer] Patient Education 2022 [email or web address]. Follow Up Care 09/22/2022 10:38:22 With:DEB ZAZUETA, MALATHI Olvera, URL Address: [address] [place] [phone] When: Unknown [facility] 08-03-2023 Evaluation note* Encounter Date Diagnosis Assessment Notes Treatment Notes Treatment Clinical Notes Sep, Dysuria (ICD-10 - R30.0) curated.by Other 08-01-2023 Evaluation note* Encounter Date Diagnosis Assessment Notes Treatment Notes Treatment Clinical Notes Sep, Microscopic colitis, unspecified microscopic colitis type (ICD-10 - K52.839) curated.by Other 07-25-2023 Evaluation note* Encounter Date Diagnosis Assessment Notes Treatment Notes Treatment Clinical Notes Aug, Frequent UTI (ICD-10 - N39.0) Continue estrogen cream. Review with Urology on her followup appt. Discussed causes of UTIs Aug, Lymphocytic colitis (ICD-10 - K52.832) Improved with GI at [facility]. 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 Barry. Reviewed medications and explained their purpose. curated.by Other 07-20-2023 Evaluation note* Encounter Date Diagnosis Assessment Notes Treatment Notes Treatment Clinical Notes Aug, Recurrent UTI (ICD-10 - N39.0) curated.by Other [facility] Chief Complaint: New patient [...] asked her to discuss this with her nsh teacher. Depending on the risk-benefit ratio will consider starting 1 or the other. She is on Zocor which is not ideal. If her cholesterol is not controlled, would suggest switching her to 40 mg of Lipitor or 20 mg of Crestor. Follow-up in 6 months or sooner should problems arise or her stress test revealed ischemia Jake Barry MD, MPH, [facility], [facility], [facility] Interventional Cardiology Pager Email: [email or web address]05-02-2023 Hospital Discharge instructions Patient Education 06/09/2022 14:15:56 Urinary Tract Infection, Adult, Pnon-be-Xqbg Urinary Tract Infection, Adult A urinary tract [...] Follow these instructions at home: Medicines Take jude-snu-vxdmecx and prescription medicines only as told by [...] provider. Document Revised: 09/06/2020 Document Reviewed: 09/06/2020 [employer] Patient Education 2022 [email or web address]. Follow Up Care 06/01/2022 10:03:13 With:CHER KRISHNAN, Marvin Camacho, URL Address: [facility] [address] [place] [address]- [phone] When:10/10/2022 [facility] 04-11-2023 Hospital Discharge instructions Patient Education 05/19/2022 [...] Treatment for this condition includes: Antibiotic medicine. Dcqj-ckp-wrrubci medicines to treat discomfort. Drinking enough water [...] Follow these instructions at home: Medicines Take exaf-phy-jvuurwy and prescription medicines only as told by [...] 11/04/2005 Document Revised: 01/12/2019 Document Reviewed: 08/04/2018 [employer] Patient Education 2020 [email or web address]. Follow Up Care 04/20/2022 10:50:51 With:MALATHI VIEIRA PA-C, URL Address: [address] [place] [address] When: Unknown [facility] Evaluation note* Encounter Date Diagnosis Assessment Notes Treatment Notes Treatment Clinical Notes May, Frequent UTI (ICD-10 - N39.0) curated.by Other 03-24-2023 Evaluation note* Encounter Date Diagnosis [...] back this morning. antibiotic at her pharmacy. curated.by Other 03-17-2023 Evaluation note* Encounter Date Diagnosis Assessment Notes Treatment Notes Treatment Clinical Notes Apr, Lymphocytic colitis (ICD-10 - K52.832) Continue Entyvio as directed Continue Lotronex 0.5 mg 1/2 tablet daily Rto 4 months curated.by Other 03-09-2023 Evaluation note* Encounter Date Diagnosis Assessment Notes Treatment Notes Treatment Clinical Notes Apr, Acute cystitis without hematuria (ICD-10 - N30.00) curated.by Other 02-28-2023 Evaluation note* Encounter Date Diagnosis Assessment Notes Treatment Notes Treatment Clinical Notes Mar, Recurrent UTI (ICD-10 - N39.0) Discussed options. Will try estrogen cream for vaginal health. Denies personal history of female cancers. Will also set up w Urology Mar, Colitis (ICD-10 - K52.9) Further treatment with Dr. Manny freed appt on 04/24 curated.by Other 02-20-2023 Evaluation note* Encounter Date Diagnosis Assessment Notes Treatment Notes Treatment Clinical Notes Mar, Dysuria (ICD-10 - R30.0) curated.by Other 01-09-2023 Evaluation note* Encounter Date Diagnosis Assessment Notes Treatment Notes Treatment Clinical Notes Feb, Acute cystitis without hematuria (ICD-10 - N30.00) Sent to [facility] for urine culture - will treat based on results. Feb, Encounter for immunization (ICD-10 - Z23) Feb, Microscopic colitis, unspecified microscopic colitis type (ICD-10 - K52.839) Keep appt w Dr. Brown. Discussed boost or other supplement to gain weight Feb, Gastric ulcer (ICD-10 - K25.9) Encouraged her to continue pantoprazole curated.by Other 01-04-2023 Evaluation note* Encounter Date Diagnosis Assessment Notes Treatment Notes Treatment Clinical Notes Feb, Lymphocytic colitis (ICD-10 - K52.832) Start Entyvio infusions every 8 weeks Continue Budesonide, Alosetron, Imodium, and Pepto for now until starting Entyvio. Pt to keep record of bowel movements - how many and consistency Follow up in 2 months Feb, Fecal incontinence (ICD-10 - R15.9) curated.by Other 11-28-2022 Evaluation note* Encounter Date Diagnosis [...] Pantoprazole as prescribed Okay to stop Sucralfate curated.by Other 09-25-2022 NoteOPERATIVE NOTE OPERATION DATE: 11/04/2021 [...] was taken to PACU in good condition.[facility] 03-27-2021 Evaluation note* Encounter Date Diagnosis Assessment Notes Treatment Notes Treatment Clinical Notes Mar, Microscopic colitis, unspecified microscopic colitis type (ICD-10 - K52.839) INCREASE COLESTIPOL TO 4 TABS AT LUNCHTIME DAILY IF NOT IMPROVED ON HIGHER DOSE PT TO CALL ON 03/31 FOR ALTERNATIVE PLAN Mar, Irritable bowel syndrome with diarrhea (ICD-10 - K58.0) [facility] [employer] Other 12-20-2021 Evaluation note* Encounter Date Diagnosis Assessment Notes Treatment Notes Treatment Clinical Notes Jan, Microscopic colitis, unspecified microscopic colitis type (ICD-10 - K52.839) START COLESIPOL 2 PO DAILY CONTINUE BUDESONIDE WITHOUT CHANGE 3 PO Q AM AND MAYBE CONSIDERING STOP THIS IF COLESTIPOL IS WORKING ENOUGH TO CONTROL HER SYMPTOMS curated.by Other 12-20-2021 Evaluation note* Encounter Date Diagnosis Assessment Notes Treatment Notes Treatment Clinical Notes Jan, Microscopic colitis, unspecified microscopic colitis type (ICD-10 - K52.839) curated.by Other Evaluation + Plan note No data available for this section [facility] evaluation + Plan note Future Appointments Appointment Date:10/27/2022 01:00:00 PM Scheduled Provider:MALATHI VIEIRA PA-C Location:[facility] Appointment Type:URO Office Visit [facility] Evaluation + Plan note Future Appointments Appointment Date:12/29/2022 01:00:00 PM Scheduled Provider:MALATHI VIEIRA PA-C Location:[facility] Appointment Type:URO Office Visit [facility] evaluation + Plan note Future Appointments Appointment Date:06/15/2023 02:00:00 PM Scheduled Provider:MALATHI VIEIRA PA-C Location:[facility] Appointment Type:URO Office Visit [facility] evaluation + Plan note Future Appointments Appointment Date:01/30/2023 10:30:00 AM Scheduled Provider: Location:[facility] Appointment Type:ASU IV Antibiotic (FT) Appointment Date:01/31/2023 10:30:00 AM Scheduled Provider: Location:[facility] Appointment Type:ASU IV Antibiotic (FT) Appointment Date:02/01/2023 10:30:00 AM Scheduled Provider: [facility] Appointment Type:ASU IV Antibiotic (FT) Appointment Date:02/02/2023 10:30:00 AM Scheduled Provider: Location:[facility] Appointment Type:ASU IV Antibiotic (FT) Appointment Date:02/03/2023 10:30:00 AM Scheduled Provider: Location:[facility] Appointment Type:ASU IV Antibiotic (FT) Appointment Date:02/04/2023 10:30:00 AM Scheduled Provider: Location:[facility] Appointment Type:ASU IV Antibiotic (FT) Appointment Date:06/15/2023 02:00:00 PM Scheduled Provider:MALATHI VIEIRA PA-C Location:[facility] Appointment Type:URO Office Visit [facility] noteNo InformationNorth Teamly Other Evaluation noteNo assessment information available [facility] Work Phone: Evaluation note* Diagnosis Onset Date Resolution Status Recurrent Clostridioides difficile diarrhea acute [facility] Work Phone: Evaluation note* Diagnosis Onset Date Resolution Status Recurrent Clostridioides difficile diarrhea acute Diarrhea acute Microscopic colitis acute Recurrent Clostridioides difficile diarrhea acute Recurrent UTI acute [facility] Work Phone: Histsbc general Narrative - Reported* Type Description Date Medical History HTN Medical History hyperlipidemia Medical History microscopic colitis Surgical History T&A Surgical History Quad by-pass Surgical History total hysterectomy Surgical History gall bladder Surgical History Cataracts Surgical History Right Knee Scope Surgical History Sphincterectomy Surgical History Left Rotator Scope Surgical History Hernia Repair 03/24/2012 Hospitalization History See Surgical Hx curated.by Other Hisjqff general Narrative - Reported* Type Description Date [...] Hospitalization History See Surgical Hx Hospitalization History [facility] 12/2022 curated.by Other Histcqw general Narrative - Reported* Type Description Date [...] Hospitalization History See Surgical Hx Hospitalization History [facility] 12/2022 curated.by Other Hisrsvu general Narrative - Reported* Type Description Date [...] Hospitalization History See Surgical Hx Hospitalization History [facility] 12/2022 curated.by Other History general Narrative - Reported* Type [...] Hospitalization History See Surgical Hx Hospitalization History [facility] 12/2022 curated.by Other Hospital Discharge instructions No data available for this section [facility] No data available for this section [facility] Summary Purpose Family History No Family History [...] November 22, 2017 10:57am Hospital Course Note [facility] Clinical Discharge Summary PERSON INFORMATION Name VINCENT HSU Age 83 Years 1935 Sex FEMALE Language Polish PCP Lisandro KRISHNAN, Gypsy Olvera Marital Status Med Service Med/Surg Acct# Arrival 09/25/2019 06:52:00 Visit Reason SURGERY - LEFT TOTAL HIP Acuity [facility] Address: [address] [place] [address] Comment: PROVIDER INFORMATION VITALS INFORMATION Vital Sign [...] MD [Verified on: 09/25/2019 11:54 EDT] Enrike oMra MD Procedure Findings Note Patient: VINCENT HSU [...] Recurrent UTI Reason for Referral Reason DUPLICATE [place] office - frequent UTIs. Diagnosis 1 Frequent UTI (N39.0) Referral Organization [facility] [employer] [facility] Referring Provider First Name Gypsy Referring Provider Last Name Lisandro Referring Provider [facility] [employer] Referred [facility] Referred Provider Beau Hernandez Referred Address [address],[place], [place],[address] Referred Provider Specialty Urology Referral Priority Routine General Notes Tatyana Bojorquez 01:56:52 PM >received today Tatyana Bojorquez 05/14/2022 02:02:41 PM >attachments made, notes locked, referral faxed Tatyana Bojorquez 05/14/2022 03:25:50 PM >DUPLICATE REFERRAL Reason *FU 04/28 [place] office - recurrent UTIs. Diagnosis 1 Recurrent UTI (N39.0 ) Referral Organization [facility] [employer] jah Referring Provider First Name Gypsy Referring Provider Last Name Lisandro Referring Provider [facility] [employer] [facility] Referred Provider Gerson Juárez Referred Address [address] [place],[address] Referred Provider Specialty Urology Referral Priority Routine [...] and content) DATE CREATED AUTHOR 09/17/2018 [facility] DATE CREATED AUTHOR AUTHOR'S ORGANIZ ATION 10/30/2019 [facility] DATE CREATED AUTHOR AUTHOR'S ORGANIZ ATION 05/31/2022 [facility] DATE CREATED AUTHOR AUTHOR'S ORGANIZ ATION 11/15/2022 [facility] DATE CREATED AUTHOR AUTHOR'S ORGANIZ ATION 05/30/2023 [facility] DATE CREATED AUTHOR AUTHOR'S ORGANIZ ATION 06/19/2023 [facility] DATE CREATED AUTHOR AUTHOR'S ORGANIZ ATION [facility]2023 [facility] DATE CREATED AUTHOR AUTHOR'S ORGANIZ ATION 07/29/2023 [facility] REASON FOR VISIT (unrecogniz ed section [...] on alosetron, Patient was recently inpatient at [facility] and was diagnosed with gastric ulcerPRESCRIPTIONPATIENT HERE FOR 1 MONTH FOLLOW UP LYMPHOCYTIC COLITIS.No InformationEntyvioCheck upREFILLUANo Informationurine cultureDISCUSSIONurine culturereferralPATIENT HERE FOR 2 MONTH FOLLOW UPupset stomach, vomiting and diarrheautiurine culturerefillmedication discussREFILLSUA-ConfusionRefillTBHNot Feeling WellUpdateTCHerkimer [facility] follow uprecent admissionPatient here for 3 month [...] Member Role Status Dates Malathi Velázquez APRN PHARMACY MANAGER-C Attending Provider Act jamar Start: December 28, [...] BE BASED ON THE PRIMARY CLINICAL RECORDS. [facility]. provides no warranty or guarantee of the accuracy or completeness of information in this document.
--- NOTE | 2023-08-16 05:21 | ED_ITS ---
HPI HPI - Extremity Injury (Lower) General Chief Complaint: Extremity Injury, Lower Stated Complaint: CUTS ON BOTH FEET Time Seen by Provider: 08/16/23 04:47 Source: patient Mode of arrival: walk-in Limitations: no limitations History of Present Illness HPI Narrative: 87-year-old female presents for bloody feet. She was at home and woke up this way and there is no history of any trauma and there was not a broken glass. Her family member accompanies her and gives most of the history. Her feet were covered in blood and they brought her here. It has been a very long time since she has had a tetanus shot. Related Data Home Medications ?Medication ?Instructions ?Recorded ?Confirmed clopidogrel 75 mg tablet (Plavix) 75 mg PO DAILY 09/27/22 07/25/23 metoprolol succinate 50 mg 50 mg PO DAILY 09/27/22 07/25/23 tablet,extended release 24 hr simvastatin 40 mg tablet 40 mg PO DAILY 09/27/22 07/25/23 spironolactone 25 mg tablet 25 mg PO DAILY 09/27/22 07/25/23 acetaminophen 500 mg tablet 1,000 mg PO Q6H PRN pain 12/29/22 07/25/23 alosetron 0.5 mg tablet 0.5 mg PO DAILY PRN diarrhea 12/29/22 07/25/23 budesonide 3 mg 3 mg PO BID 12/29/22 07/25/23 capsule,delayed,extended release cholecalciferol (vitamin D3) 50 50 mcg PO DAILY 12/29/22 07/25/23 mcg (2,000 unit) tablet (D3 DOTS) estradiol 0.01% (0.1 mg/gram) 1 g vaginal .TWICE A WEEK 12/29/22 07/25/23 vaginal cream (Estrace) loperamide 2 mg capsule (Imodium 2 mg PO Q4H 12/29/22 07/25/23 A-D) melatonin 5 mg tablet 5 mg PO DAILY 12/29/22 12/29/22 zinc gluconate 50 mg tablet 50 mg PO DAILY 12/29/22 07/25/23 fbenmg-hecwlcnt-zcilycp 2 cap PO QID 07/25/23 07/25/23 36,000-114,000-180,000 unit capsule,delay rel (Creon) pantoprazole 20 mg tablet,delayed 20 mg PO DAILY 07/25/23 07/25/23 release Previous Rx's ?Medication ?Instructions ?Recorded Lactobacillus acidophilus, 1 packet PO BID 30 days #60 ea 01/01/23 [place] 100 million cell granules packet (Floranex) ciprofloxacin HCl 250 mg tablet 250 mg PO BID 3 days #6 tabs 07/25/23 (Cipro) Allergies Allergy/AdvReac Type Severity Reaction Status Date / Time levofloxacin AdvReac Severe Drowsy Verified 08/16/23 04:57 Penicillins AdvReac Severe Unknown Verified 08/16/23 04:57 Antihistamines - Alkylamine AdvReac Intermediate Unknown Verified 08/16/23 04:57 phenergen Allergy Severe Agitated Uncoded 08/16/23 04:57 Opioid HPI Opioid Management Most Recent Pain and Opioid Data: Last Pain Scale 0 12/31/22 01:53 Review of Systems ROS Narrative A ten point review of systems is negative except as noted above. [facility] Medical History (Updated 08/16/23 @ 05:20 by Suraj Whyte MD) Cataracts, bilateral ?H26.9 - Unspecified cataract (ICD-10) HTN (hypertension) ?I10 - Essential (primary) hypertension (ICD-10) Hypomagnesemia ?E83.42 - Hypomagnesemia (ICD-10) Peripheral edema ?R60.0 - Localized edema (ICD-10) GERD (gastroesophageal reflux disease) ?K21.9 - Gastro-esophageal reflux disease without esophagitis (ICD-10) IBD (inflammatory bowel disease) ?K52.9 - Noninfective gastroenteritis and colitis, unspecified (ICD-10) CAD (coronary artery disease) ?I25.10 - Atherosclerotic heart disease of [place] coronary artery without angina pectoris (ICD-10) 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 (ICD-10) Cholecystectomy planned Cataract ?H26.9 - Unspecified cataract (ICD-10) Acute hypokalemia ?E87.6 - Hypokalemia (ICD-10) Clostridium difficile colitis ?A04.72 - Enterocolitis due to Clostridium difficile, not specified as recurrent (ICD-10) Acute dehydration ?E86.0 - Dehydration (ICD-10) Acute pain of right shoulder ?M25.511 - Pain in right shoulder (ICD-10) Acute hyponatremia ?E87.1 - Hypo-osmolality and hyponatremia (ICD-10) Urinary tract infection ?N39.0 - Urinary tract infection, site not specified (ICD-10) Altered mental status ?R41.82 - Altered mental status, unspecified (ICD-10) Surgical History (Updated 07/25/23 @ 19:48 by Arcadio Rowlnad) History of hysterectomy ?Z90.710 - Acquired absence of both cervix and uterus (ICD-10) 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 - Presence of aortocoronary bypass graft (ICD-10) History of left hip replacement ?Z96.642 - Presence of left artificial hip joint (ICD-10) S/P CABG x 5 ?Z95.1 - Presence of aortocoronary bypass graft (ICD-10) Family History (Updated 12/29/22 @ 14:40 by Melissa Britt) Father Family history of CHF (congestive heart failure) Family history of hypertension Brother Family history of cancer Sister Family history of cancer Family history of myocardial infarction Mother Family history of hypertension Family history of stroke Social History (Updated 12/29/22 @ 14:41 by Melissa Britt) Within the past year, how often did you have a drink containing alcohol: monthly or less Within the past year, how many standard drinks containing alcohol did you have on a typical day: 1 or 2 Within the past year, how often did you have six or more drinks on one occasion: never Total score: 0 Score interpretation: A score less than 3 is consistent with normal alcohol consumption. Smoking status: Never smoker Non-prescribed substance use: denies use Highest level of school completed/degree received: 9th grade Are you now , , , , never or living with a partner: In a typical week, how many times do you talk on the telephone with family, friends, or neighbors: twice per week How often do you get together with friends or relatives: twice per week How often do you attend catholic or hoahaoism services: never Do you belong to any clubs or organizations such as catholic groups unions, fraternal or athletic groups, or school groups: no Total score: 1 Score interpretation: A score of less than or equal to 1 indicates the most socially isolated. Exam Narrative Exam Narrative: Nurses note and vital signs reviewed and patient is not hypoxic. General: The patient appears well and in no apparent distress. Patient is resting comfortably on cart. Skin: Warm, dry, no pallor noted. There is no rash noted. Head: Normocephalic, atraumatic Eye: Normal conjunctiva, no drainage Ears, Nose, Mouth, and Throat: oral mucosa is moist. Nares patent. Cardiovascular: Regular Rate and Rhythm Respiratory: Patient is in no distress, no accessory muscle use, lungs are c lear to auscultation, no wheezing, rales or rhonchi Back: non-tender, no CVA tenderness bilaterally to percussion. GI: Soft and nontender Musculoskeletal: Both feet were covered in blood upon arrival. Upon cleaning the blood off we found no wound at all on the left foot. She has 2 superficial lacerations which are not deep on the right foot, medial side. No other wound is found. Her left great toenail is sharp. Neurological: A&O x4, normal speech Psychiatric: Cooperative Constitutional Vital Signs, click to edit/add: Last Vital Signs Temp 98.2 F 08/16/23 04:48 Pulse 67 08/16/23 04:48 Resp 18 08/16/23 04:48 BP 196/71 H 08/16/23 04:48 Pulse Ox 96 08/16/23 04:48 O2 Del Method Room Air 08/16/23 04:48 Course Vital Signs Vital signs: Vital Signs Temperature 98.2 F 08/16/23 04:48 Pulse Rate 67 08/16/23 04:48 Respiratory Rate 18 08/16/23 04:48 Blood Pressure 196/71 H 08/16/23 04:48 Pulse Oximetry 96 08/16/23 04:48 Oxygen Delivery Method Room Air 08/16/23 04:48 Temperature 98.2 F 08/16/23 04:48 Pulse Rate 67 08/16/23 04:48 Respiratory Rate 18 08/16/23 04:48 Blood Pressure 196/71 H 08/16/23 04:48 Pulse Oximetry 96 08/16/23 04:48 Oxygen Delivery Method Room Air 08/16/23 04:48 MDM - Extremity Injury (Lower) MDM Narrative Medical decision making narrative: The patient had not been up or walking around when this happened. My impression is that this was caused by her left great toenail. Tetanus is updated. We talked about antibiotic but the patient has strong propensity for C. difficile we will avoid the antibiotic. The wounds were cleansed and dressed. Treatment diagnosis and follow-up were discussed with the patient and her family. Differential Diagnosis Differential diagnosis: Likely other (Abrasion, laceration) Discharge Plan Discharge Stand Alone Forms: Portal Instructions Chief Complaint: Extremity Injury, Lower Clinical Impression: Laceration of foot, right Patient Disposition: Home, Self-Care Time of Disposition Decision: 05:20 Condition: Good Mode of Transportation: Private Vehicle Prescriptions / Home Meds: No Action metoprolol succinate 50 mg tablet extended release 24 hr 50 mg PO DAILY simvastatin 40 mg tablet 40 mg PO DAILY spironolactone 25 mg tablet 25 mg PO DAILY clopidogrel [Plavix] 75 mg tablet 75 mg PO DAILY alosetron 0.5 mg tablet 0.5 mg PO DAILY PRN (Reason: diarrhea) acetaminophen 500 mg tablet 1,000 mg PO Q6H PRN (Reason: pain) budesonide 3 mg capsule,delayed,extend.release 3 mg PO BID zinc gluconate 50 mg tablet 50 mg PO DAILY cholecalciferol (vitamin D3) [D3 DOTS] 50 mcg (2,000 unit) tablet 50 mcg PO DAILY melatonin 5 mg tablet 5 mg PO DAILY loperamide [Imodium A-D] 2 mg capsule 2 mg PO Q4H Hold Instructions: Resume on 01/05/23. Rx Instructions: administer after each loose stool until symptoms controlled; do not exceed 8 mg per 24 hrs estradiol [Estrace] 0.01 % (0.1 mg/gram) cream 1 g vaginal .TWICE A WEEK Lactobacillus acidoph-L.bulgar [Floranex] 100 million cell Granules In Packet 1 packet PO BID 30 Days Qty: 60 11RF Creon 36,000-114,000- 180,000 unit capsule,delayed release(DR/EC) 2 cap PO QID pantoprazole 20 mg tablet,delayed release (DR/EC) 20 mg PO DAILY ciprofloxacin HCl [Cipro] 250 mg tablet 250 mg PO BID 3 Days Qty: 6 0RF Print Language: Sen[place]alese Instructions: Laceration Without Closure (ED) Referrals: Shirlene Vergara MD [Primary Care Provider] - 1 week
[2023-08-16] MEDS: ADACEL DIPH,PERTUSS(ACELL),TET VAC/PF 0.5 ML ADULT SYRINGE IM (05:47)
[2023-08-16] MEDS: SURGIFOAM GEL SPONGE SIZE 100 1 EACH TOPICAL (06:10)
== END 2023-08-16 06:12 | disposition home or self-care (01) ==
PROVIDERS: Emergency Provider Emergency Medicine; PCP Family Medicine
DX: S91.311A Laceration without foreign body, right foot, initial encounter (principal); X58.XXXA Exposure to other specified factors, initial encounter; Z23 Encounter for immunization; I87.311 Chronic venous hypertension (idiopathic) with ulcer of right lower extremity; L97.812 Non-pressure chronic ulcer of other part of right lower leg with fat layer exposed; L97.911 Non-pressure chronic ulcer of unspecified part of right lower leg limited to breakdown of skin; L97.411 Non-pressure chronic ulcer of right heel and midfoot limited to breakdown of skin
CPT/HCPCS: 90471; 90715; 99284; G0463

== ENCOUNTER 2023-08-16 16:10 | Outpatient (OUT) | payer MEDICARE, BC, SELFPAY | END 2023-08-16 16:11 | disposition home or self-care (01) | LOC: WC 16:10 | PROVIDERS: PCP Family Medicine; Visit Provider Physician Assistant | DX: I87.311 Chronic venous hypertension (idiopathic) with ulcer of right lower extremity (principal); L97.812 Non-pressure chronic ulcer of other part of right lower leg with fat layer exposed; L97.911 Non-pressure chronic ulcer of unspecified part of right lower leg limited to breakdown of skin; L97.411 Non-pressure chronic ulcer of right heel and midfoot limited to breakdown of skin | CPT/HCPCS: G0463 ==

== ENCOUNTER 2023-08-30 15:52 | Outpatient (OUT) | payer MEDICARE, BC, SELFPAY ==
--- OUTSIDE RECORDS SUMMARY | 2023-08-30 16:15 | XMS_ITS | CCD ---
Author Organization [facility] Care Team Providers Care Relief Mate Name Role Phone Giana Griffiths Unavailable Hunter Brown Unavailable [phone] MD Gypsy Mcmahon Primary Care Provider [phone] MD Gypsy Mcmahon Attending Provider MD Hunter Brown Attending Provider Gypsy Mcmahon Unavailable GYPSY MCMAHNO Primary Care Physician LISANDRO, DR GYPSY Olvera [...] GYPSY Olvera Primary Care Unavailable LISANDRO, DR GYSPY Olvera Primary Care Unavailable CLAU NASCIMENTO Attending Unavailable CLAU NASCIEMNTO Admitting Unavailable LISANDRO, DR GYPSY Olvera Primary [...] MCMAHON, DR GYPSY Olvera Primary Care Unavailable DBE, MALATHI Admitting Unavailable MCMAHON, DR GYPSY Olvera [...] Primary Care Unavailable Jose G Ellington Unavailable [facility] Attending Unavailable [place] Attending Unavailable Malathi Velázquez Unavailable [phone] MD Jacinto Max Attending Provider MD Jacinto Max Referring Provider MD Gypsy Mcmahon Primary Care Provider Jacinto Max Unavailable MD Jacinto Max Attending Provider MD Jacinto Max Referring Provider MD Gypsy Mcmahon Primary Care Provider TuDO Marvin moreno Emergency Provider [phone] MD Gypsy Mcmahon Primary Care Provider [phone] Ly, DO Monie Gastelum Attending Provider Jacinto [...] 02-04-20 13 anaphylaxis, Anaphylaxis (disorder) [facility] (20 sources) histamines Drug allergy Unknown [facility] Other (9 sources) Histamine H2 Inhibitors; Translations: [Histamine H2 Inhibitors] Allergy to substance 07-16-19 13 Unknown Reaction [facility] (20 sources) levoFLOXacin; Translations: [levofloxacin] Drug Allergy 07-01-19 23 Tremor (finding) [facility] (1 source) diphenhydrAMINE Drug Allergy 04-20-19 [facility] (1 source) ezetimibe Drug Allergy 04-20-19 20 [facility] (1 source) Gemfibrozil Drug Allergy 04-20-19 [facility] (2 sources) Levamisole; Translations: [Phenergan] Drug Allergy 07-16-19 13 [facility] (1 source) NSAIDs Drug allergy (disorder) 04-20-19 [facility] (1 source) Nasal Decongestant Drug allergy (disorder) 04-20-19 [facility] (1 source) Darvocet-N 100 Drug allergy (disorder) 04-20-19 [facility] (11 sources) diphenhydrAMINE; Translations: [diphenhydramine] Drug Allergy jumpy,, Unknown [facility] (14 sources) Penicillin; Translations: [penicillin] Drug Allergy Eruption of skin (disorder) [facility] (1 source) Histamine; Translations: [HISTAMINE] Drug Allergy 02-04-20 13 [facility] Rep[facility] (4 sources) Penicillins; Translations: [Penicillins] Propensity to adverse reactions 02-25-19 24 Rash [facility] (2 sources) Antihistamines Allergy to substance 02-26-19 Unknown Reaction [facility] (1 source) Promethazine Drug Allergy 12-07-19 18 [facility] Rep[facility] Medications Current Medications Medication Drug [...] capsule (2 sources) Start: 04-15-2023 lactobacillus acidophilus [id number] unt oral tablet (2 sources) take 1 [...] procedure, # 2 cap(s), Refills(s) 0, Pharmacy: [facility]/pharmacy #[id number], 178, cm, 05/19/22 13:31:00 EDT, [...] Start: 01-26-2023 take 1 capsule by mo [facility] every twenty-four hours Vancomycin HCl 250 [...] disease (20 sources) Atherosclerotic heart disease of [place] coronary artery without angina pectoris; Translations: [Coronary [...] 02-04-2022 Chronic Other aftercare (1 source) 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; Translations: [[facility] [...] and visceral atherosclerosis (16 sources) 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; Translations: [Atherosclerosis of [place] arteries of left leg with ulceration of [...] Onset: 11-02-2021 Episodic Other aftercare (1 source) USP (current) 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; 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] Onset: 11-10-2021 Episodic [...] Range Facility [facility] 07-27-2023 Lab Reports [id number]#1.00TIFF Normal [facility] Lab Reports [id number]#1.00TIFF Normal [facility] Blood Urea Nitrogenon 2023 Urea nitrogen [Mass/Vol] 16 mg/dL Normal 7-25 [facility] Comment on above: Order Comment: STAT FOR CT Performed By: #### B ANNE MARIE SHARMA #### [place] [id number] [facility] CT abdomen pelvis w conon CT abdomen pelvis w con [facility] Main [place] [id number] Scan Report Signed Patient: Vincent Hsu MR#: [id number] 4 : 1935 Acct:[id number] Age/Sex: 87 / F ADM Date: 05/28/23 Loc: CT Room: Type: [facility] Attending Dr: Monie Wallace DO Copies [...] 1331 Signed By: 05/28/23 1334 Normal [facility] Creatinineon 05-28-2023 Creatinine [Mass/Vol] 1.07 mg/dL Normal 0.60-1.20 [facility] Comment on above: Order Comment: STAT FOR CT Performed By: #### B UN, CREAT #### [facility] [address] [place] [address] [place] GFR/1.73 sq M.predicted MDRD (S/P/Bld) [Vol rate/Area] 50.587 mL/min/{1.73_m2} Normal [facility] Comment on above: Order Comment: STAT FOR CT Result Comment: PERF ORMED BY: [place] [id number] PATHOLOGIST [employer] TIEN VELASQUEZ M.D. Performed By: #### B UN, CREAT #### [facility] [address] [place] [address] Creatinine [Mass/volume] in Serum or PlasmaOrdered By: Monie Wallace on 05-28-2023 Creatinine [Mass/Vol] 1.07 mg/dL 0.60-1.20 [facility] No Panel InformationOrdered By: Monie Wallace on 05-28-2023 Estimated GFR (CKD-EPI) 50.587 mL/Min [facility] Creatinine Clearance (Chem N/A [facility] Urea nitrogen [Mass/volume] in Serum or PlasmaOrdered By: Monie Wallace on 05-28-2023 Urea nitrogen [Mass/Vol] 16 mg/dL 7-25 [facility] No Panel InformationOrdered By: Gypsy Mcmahon on 05-25-2023 E coli Shiga Toxin EIA [facility] Salmonella/Shigella Screen [facility] IgA [Mass/volume] in Serum o r Plasmaon 05-24-2023 IgA [Mass/Vol] 64 mg/dL 64-422 [facility] Comment on above: Performed at: [facility]ON[facility] baron [address] [id number] Director: Salomon Mcarthur PhD, Phone: [phone] No Panel Informationon 05-23 Endomysial IgA Antibody Negative Negative [facility] Serum gliadin peptide IgA an tibody assay (units/volume)on 05-24-2023 Gliadin peptide IgA Qn (S) 4 units 0-19 [facility] Comment on above: Negative 0 - 19 Weak Positive 20 - 30 Moderate to Strong Positive >30 Serum gliadin peptide IgG an tibody assay (units/volume)on 05-24-2023 Gliadin peptide IgG Qn (S) 2 units 0-19 [facility] Comment on above: Negative 0 - 19 Weak Positive 20 - 30 Moderate to Strong Positive >30 Serum tissue transglutaminas e (tTG) IgA antibody assay (units/volume)on 05-24-2023 tTG IgA Qn (S) <2 U/mL 0-3 [facility] Comment on above: Negative 0 - 3 Weak Positive 4 - 10 Positive >10 Tissue Transglutaminase (tTG) has been identified as the endomysial antigen. Studies have demonstr- ated that endomysial IgA antibodies have over 99% specificity for gluten sensitive enteropathy. Serum tissue transglutaminas e (tTG) IgG antibody assay (units/volume)on 05-24-2023 tTG IgG Qn (S) <2 U/mL 0-5 [facility] Comment on above: Negative 0 - 5 Weak Positive 6 - 9 Positive >9 [facility] 05-10-2023 Lab Reports [id number]#1.00TIFF Normal [facility] Reports [id number]#1.00TIFF Normal [facility] Reports [id number]#1.00TIFF Normal [facility] Automated urine specific gra vity by refractometryon 05-06-2023 Specific gravity Refractometry automated (U) [Rel density] 1.025 1.005-1.02 5 [facility] Bilirubin Auto test strip (U ) [Mass/Vol]on 05-06-2023 Bilirubin (U) [Mass/Vol] Negative NEGATIVE [facility] Color Auto (U)on 05-06-2023 Color (U) YELLOW YELLOW [facility] Ketones Auto test strip (U) [Mass/Vol]on 05-06-2023 Ketones (U) [Mass/Vol] Negative NEGATIVE Fi [facility] Lab Reportson 05-06-2023 Lab Reports [id number]#1.00TIFF Normal [facility] Laboratory - Microbiology an d Antimicrobial susceptibilityOrdered By: Gypsy Mcmahon on 05-06-2023 Bacteria identified Cx Nom (U) [facility] Protein Auto test strip (U) [Mass/Vol]on 05-06-2023 Protein (U) [Mass/Vol] Negative NEG/TRACE Fi [facility] Specific gravity Auto test s trip (U) [Rel density]on 05-06-2023 Specific gravity (U) [Rel density] CLEAR CLEAR [facility] Urine glucose measurement by test strip (mass/volume)on 05-06-2023 Glucose Test strip (U) [Mass/Vol] Negative NEGATIVE [facility] Urine hemoglobin detection b y automated test stripon 05-06-2023 Hemoglobin Auto test strip Ql (U) TRACE-I NEGATIVE [facility] Urine nitrite detection by a utomated test stripon 05-06-2023 Nitrite Auto test strip Ql (U) SMALL NEGATIVE [facility] Nitrite Auto test strip Ql (U) Positive NEGATIVE [facility] Urobilinogen Auto test strip (U) [Mass/Vol]on 05-06-2023 Urobilinogen Qn (U) 0.2 {Gen'U}/dL 0.2-1.0 [facility] pH Auto test strip (U)on pH (U) 5.5 [pH] 5.0-9.0 [facility] No Panel Informationon 04-30 Clostridium difficile (PCR)(LAB) Negative NEGATIVE [facility] No Panel Informationon 04-06 Clostridium difficile (PCR)(LAB) Positive Negative [facility] Comment on above: Toxigenic C difficil e: PositiveEpidemic Strain Bl/NAP1/027: Presumptive NegativePerformed at: CB - [facility] [address] [place], [place] [id number] Director: Salomon Mcarthur PhD, Phone: [phone] IntraOperative Documentson 0 02-12-2023 IntraOperative Documents [id number]#1.00TIFF Normal [facility] Physician Orderon 02-12-2023 Physician Order [id number]#1.00TIFF Normal [facility] Physician Order [id number]#1.00TIFF Normal [facility] ED Note-Physicianon 02-05-20 ED Note-Physician [id number]#1.00TIFF Normal [facility] 02-04-2023 Lab Reports [id number]#1.00TIFF [facility] Lab Reports [id number]#1.00TIFF [facility] Lab Reports [id number]#1.00TIFF [facility] Consent for Treatmenton 01-09 Consent for Treatment [id number]#1.00TIFF Normal [facility] Retail - Clinical Noteon Retail - Clinical Note [id number]#1.00TIFF [facility] 01-28-2023 Lab Reports [id number]#1.00TIFF [facility] Physician Orderon 01-28-2023 Physician Order [id number]#1.00TIFF Normal [facility] Urology Office/Clinic Noteon 01-27-2023 Urology Office/Clinic [...] Urnls Dip Stick Auto w/o Microscopy POC 70655 2. 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 Case discussed w GI, Dr Brown's [employer]CE[employer] CAP[employer] Katie. he agrees w above plan. 3. [...] the risks of side effects etc. Orders: 16714 Measure Post Void residual urine and/or bladder capacity by US- non-imaging Total time spent reviewing previous notes/results/external documents, preparing the chart, conducting the encounter with the patient and family, ordering tests/medications, and documenting the encounter was 40 minutes. Follow-up With When Contact Information MALATHI VIEIRA PA-C, URL [address] [place] [address] [phone] Additional Instructions: f/u in Spring Patient Education Urinary Tract Infection, Adult, Jblg-qb-Yvue Documentation recorded by the scribe Caprice Stratton [...] Urnls Dip Stick Auto w/o Microscopy POC 97442 Your Care Team Attending Physician - MALATHI [...] ZAZUETA, MALATHI Olvera Where: [facility] Patient Educationon 01-27-20 Patient Education Obstetrics and [...] these instructions at home: Medicines ? Take iwnt-pec-cbfngfs and prescription medicines only as told by [...] provider. Document Revised: 09/06/2020 Document Reviewed: 09/06/2020 [employer] Patient Education ? 2022 [employer]. [facility] Report[facility] 01-25-2023 Lab Reports [id number]#1.00TIFF [facility] Lab Reports [id number]#1.00TIFF [facility] Lab Reports [id number]#1.00TIFF [facility] 12-03-2022 Lab Reports [id number]#1.00TIFF [facility] Physician Orderon 12-01-2022 Physician Order [id number]#1.00TIFF [facility] Office Visiton 11-11-2022 Follow-up visit [id number] Vincent Hsu 1935 F Date Provider Department Center 11/11/2022 Kulwinder-JAKE [facility]Y [facility] Family History Problem Relation Age of Onset Aneurysm Mother Heart attack Father Family Status - Relation Status Age at Mother Father Level of Service:51385 ME OFFICE/OUTPATIENT ESTABLISHED LOW MDM 20-29 MIN Normal [facility] Report[facility] 09-25-2022 Lab Reports [id number]#1.00CD:12 7 Normal [facility] Lab Reports [id number]#1.00CD:12 7 Normal [facility] Physician Orderon 09-23-2022 Physician Order [id number]#1.00CD:12 7 Normal [facility] Screenson 09-23-2022 Screens [id number]#1.00CD:12 7 Normal [facility] Ambulatory Visit Summaryon 0 09-22-2022 Ambulatory [...] PA-C, MALATHI E Where: [facility] Tatyana Normal [facility] Patient Educationon 09-23-19 Patient Education Obstetrics and [...] these instructions at home: Medicines ? Take lxpz-ssq-rchtwtc and prescription medicines only as told by [...] Reviewed: 09/06/2020 Elsevier Patient Education ? 2022 [employer] [facility] Urology Office/Clinic Noteon 09-22-2022 Urology Office/Clinic Note [...] up having to send a U.Cx to [facility] so we can review the results. [...] When Contact Information MALATHI VIEIRA PA-C, URL [address] [place] [address] Additional Instructions: Patient Education Urinary Tract Infection, Adult, Kwmp-ck-Abet IJazlyn, personally scribed for Malathi Vieira PA-C [...] 15:38 EDT Office Visiton 06-30-2022 Follow-up visit [id number] Vincent Hsu 1935 F Date Provider Department Center 06/30/2022 Kulwinder-JAKE [facility] Family History Problem Relation Age of Onset Aneurysm Mother Heart attack Father Family Status - Relation Status Age at Mother Father Level of Service:19582 ME OFFICE/OUTPATIENT NEW MODERATE MDM 45-59 MINUTES Normal [facility] CT ABD/PELVIS WO CONon 05-27 CT [...] MI NUÑEZ Date: 2022-05-27 10:34 Normal [facility] CULTURE URINEon 05-14-2022 CULTURE URINE [...] Trimethoprim/Sulfamethoxa zole <=20 S F Normal [facility] Comment on above: Performed By: #### U RCX #### [facility] [address] [place], [place] [address] Dr. Anthony Bonilla UA RANDOMon 05-11-2022 Bilirubin Ql (U) Negative Normal NEGATIVE [facility] Comment on above: Performed By: #### U RCX #### [facility] [address] [place], [place] [address] Dr. Anthony Bonilla Clarity (U) SL CLOUDY Abnormal CLEAR [facility] Comment on above: Performed By: #### U RCX #### [facility] [address] [place] [address] [address] Anthony Bonilla Color (U) LT. YELLOW Normal YELLOW [facility] Comment on above: Performed By: #### U RCX #### [facility] [address] [place] [address] [address] Anthony Bonilla Glucose Ql (U) Negative Normal NEGATIVE [facility] Comment on above: Performed By: #### U RCX #### [facility] [address] [place] [address] Dr. Anthony Bonilla Hemoglobin Ql (U) Negative Normal NEGATIVE [facility] Comment on above: Performed By: #### U RCX #### [facility] [address] [place] [address] Dr. Anthony Bonilla Ketones Ql (U) Negative Normal NEGATIVE [facility] Comment on above: Performed By: #### U RCX #### [facility] [address] [place] [address] Dr. Anthony Bonilla LEUKOCYTES MODERATE Abnormal NEGATIVE [facility] Comment on above: Performed By: #### U RCX #### [facility] [address] [place] [address] [address] Anthony Bonilla Nitrite Ql (U) Negative Normal NEGATIVE [facility] Comment on above: Performed By: #### U RCX #### [facility] [address] [place] [address] Dr. Anthony Bonilla pH (U) 5.5 [pH] Normal 5-9 [facility] Comment on above: Performed By: #### U RCX #### [facility] [address] [place] [address] Dr. Anthony Bonilla SPEC GRAVITY 1.020 Normal 1.005-<=1. 025 [facility] Comment on above: Performed By: #### U RCX #### [facility] [address] [place] [address] Dr. Anthony Bonilla UA PROTEIN Negative Normal NEGATIVE/ TRACE [facility] Comment on above: Performed By: #### U RCX #### [facility] [address] [place] [address] Dr. Anthony Bonilla Urobilinogen Qn (U) 0.2 {Gen'U}/dL Normal 0.2 - 1. 0 [facility] Comment on above: Performed By: #### U RCX #### [facility] [address] [place] [address] Dr. Anhtony Bonilla CULTURE URINEon 05-01-2022 CULTURE URINE Isolate [...] Trimethoprim/Sulfamethoxa zole <=20 S F Normal [facility] Comment on above: Performed By: #### U RCX #### [facility] [address] [place] [address] Dr. Anthony Bonilla CULTURE URINEon 04-16-2022 CULTURE [...] F Nitrofurantoin 64 I F Normal [facility] Comment on above: Performed By: #### U RCX #### [facility] [address] [place] [address] Dr. Anthony Bonilla UA RANDOMon 04-14-2022 Bilirubin Ql (U) Negative Normal NEGATIVE [facility] Comment on above: Performed By: #### U RCX #### [facility] [address] [place] [address] Dr. Anthony Bonilla Clarity (U) CLEAR Normal CLEAR [facility] Comment on above: Performed By: #### U RCX #### [facility] [address] [place] [address] Dr. Anthony Bonilla Color (U) LT. YELLOW Normal YELLOW [facility] Comment on above: Performed By: #### U RCX #### [facility] [address] [place] [address] Dr. Anthony Bonilla Glucose Ql (U) Negative Normal NEGATIVE [facility] Comment on above: Performed By: #### U RCX #### [facility] [address] [place] [address] Dr. Anthony Bonilla Hemoglobin Ql (U) Negative Normal NEGATIVE [facility] Comment on above: Performed By: #### U RCX #### [facility] [address] [place] [address] Dr. Anthony Bonilla Ketones Ql (U) Negative Normal NEGATIVE [facility] Comment on above: Performed By: #### U RCX #### [facility] [address] [place] [address] Dr. Anthony Bonilla LEUKOCYTES MODERATE Abnormal NEGATIVE [facility] Comment on above: Performed By: #### U RCX #### [facility] [address] [place] [address] Dr. Anthony Bonilla Nitrite Ql (U) Negative Normal NEGATIVE [facility] Comment on above: Performed By: #### U RCX #### [facility] [address] [place] [address] [address] Anthony Bonilla pH (U) 5.5 [pH] Normal 5-9 [facility] Comment on above: Performed By: #### U RCX #### [facility] [address] [place] [address] [address] Anthony Bonilla SPEC GRAVITY 1.020 Normal 1.005-<=1. 025 [facility] Comment on above: Performed By: #### U RCX #### [facility] [address] [place] [address] [address] Anthony Bonilla UA PROTEIN Negative Normal NEGATIVE/ TRACE [facility] Comment on above: Performed By: #### U RCX #### [facility] [address] [place] [address] [address] Anthony Bonilla Urobilinogen Qn (U) 0.2 {Gen'U}/dL Normal 0.2 - 1. 0 [facility] Comment on above: Performed By: #### U RCX #### [facility] [address] [place] [address] [address] Anthony Bonilla Urinalysis - DIPSTICKon 03-12 Appearance (U) clear [employer] Other Bilirubin Ql (U) Urge Other Color (U) dark yellow [employer] Other Glucose Ql (U) Negative [employer] Other Hemoglobin Ql (U) Negative [employer] Other Ketones Ql (U) trace [employer] Other Leukocyte esterase Test strip Ql (U) [employer] Other Nitrite Ql (U) Negative [employer] Other pH (U) 5.0 [pH] [employer] Other Protein Ql (U) Negative [employer] Other Specific gravity (U) [Rel density] 1.015 [employer] [facility] [employer] Other Urobilinogen (U) [Mass/Vol] 0.2 mg/dL [employer] Other Urinalysis - DIPSTICK Nor [employer] Other Urine Cultureon 03-30-2022 Urine Culture 10,000 [employer] [facility] [employer] Other Bacteria identified Cx Nom (U) [employer] [facility] [employer] Other CULTURE URINEon 03-23-2022 CULTURE URINE Isolate 1 Pseudomonas aeruginosa >100,000 cfu/mL of ORGANISM 1 Pseudomonas aeruginosa ANTIBIOTIC M.I.C RX STATUS Piperacillin/Tazobactam 8 S F Ceftazidime 4 S F Imipenem 1 S F Amikacin <=2 S F Gentamicin <=1 S F Tobramycin <=1 S F Ciprofloxacin <=0.25 S F Levofloxacin 0.5 S F Normal [facility] Comment on above: Performed By: #### U RCX #### [facility] [address] [address] [address] Anthony Bonilla CARDIAC DARWIN ADMITon 023 CK [Catalytic activity/Vol] 137 U/L Normal 26-192 [facility] Comment on above: Performed By: #### U RCX #### [facility] [address] [address] [address] Anthony Bonilla CK.MB [Mass/Vol] 1.05 ng/mL Normal <=3.60 [facility] Comment on above: Performed By: #### U RCX #### [facility] [address] [address] [address] Anthony Bonilla HSTROP 17.6 pg/mL Normal 4.0-51.3 The [facility] Comment on above: Result Comment: CUT- OFF POINTS HAVE BEEN ESTABLISHED BASED ON THE FOURTH UNIVERSAL DEFINITIONS OF MYOCARDIAL INFARCTION. THE UPPER REFERENCE LIMIT (URL) OF TROPONIN, DEFINED THE 99TH PERCENTILE OF cTnI DISTRIBUTION IN A REFERENCE POPULATION, HAS BEEN CONFIRMED THE DECISION THRESHOLD FOR MO DIAGNOSIS. Performed By: #### U RCX #### [facility] [address] [address] [address] Anthony Bonilla CANDIDA 72 ng/mL Normal 9-82 The [facility] Comment on above: Performed By: #### U RCX #### [facility] [address] [place] [address] Dr. Anthony Bonilla CBC AUTO DIFFon 03-20-2022 BASO # 0.0 103/ul Normal 0.0-0.1 [facility] Comment on above: Performed By: #### C BC #### [facility] [address] [place] [address] Dr. Anthony Bonilla Basophils/100 WBC (Bld) 0.3 % Normal 0.2-2.0 [facility] Comment on above: Performed By: #### C BC #### [facility] [address] [place] [address] Dr. Anthony Bonilla EO # 0.0 103/ul Normal 0.0-0.7 [facility] Comment on above: Performed By: #### C BC #### [facility] [address] [place] [address] Dr. Anthony Bonilla Eosinophils/100 WBC (Bld) 0.1 % Critically low 0.9-7.0 [facility] Comment on above: Performed By: #### C BC #### [facility] [address] [place] [address] Dr. Anthony Bonilla Erythrocyte distribution width (RBC) [Ratio] 15.9 % Critically high 11.0-15.0 The [facility] Comment on above: Performed By: #### C BC #### [facility] [address] [place] [address] Dr. Anthony Bonilla Hematocrit (Bld) [Volume fraction] 33.6 % Critically low 36.0-48.0 The [facility] Comment on above: Performed By: #### C BC #### [facility] [address] [place] [address] Dr. Anthony Bonilla Hemoglobin (Bld) [Mass/Vol] 11.2 g/dL Critically low 12.0-16.0 The [facility] Comment on above: Performed By: #### C BC #### [facility] [address] [address] [address] Anthony Bonilla IG # 0.04 10e3/ul Critically high 0.00-0.03 [facility] Comment on above: Performed By: #### C BC #### [facility] [address] [address] [address] Anthony Bonilla IG % 0.3 % Normal 0.0-0.5 [facility] Comment on above: Performed By: #### C BC #### [facility] [address] [place] [address] Dr. Anthony Bonilla LYMPH # 0.8 103/ul Critically low 1.2-3.8 [facility] Comment on above: Performed By: #### C BC #### [facility] [address] [place] [address] Dr. Anthony Bonilla Lymphocytes/100 WBC (Bld) 6.4 % Critically low 20.5-60.0 [facility] Comment on above: Performed By: #### C BC #### [facility] [address] [place] [address] Dr. Anthony Bonilla MANUAL DIFF REQ NO Normal [facility] Comment on above: Performed By: #### C BC #### [facility] [address] [place] [address] Dr. Anthony Bonilla MCH (RBC) [Entitic mass] 28.9 pg Normal 26.7-34.0 [facility] Comment on above: Performed By: #### C BC #### [facility] [address] [place] [address] Dr. Anthony Bonilla MCHC (RBC) [Mass/Vol] 33.3 g/dL Normal 29.9-35.2 [facility] Comment on above: Performed By: #### C BC #### [facility] [address] [place] [address] Dr. Anthony Bonilla MCV (RBC) [Entitic vol] 86.8 fL Normal 81.0-99.0 [facility] Comment on above: Performed By: #### C BC #### [facility] [address] [place] [address] Dr. Anthony Bonilla MONO # 1.1 103/ul Critically high 0.3-0.8 [facility] Comment on above: Performed By: #### C BC #### [facility] [address] [place] [address] Dr. Anthony Bonilla Monocytes/100 WBC (Bld) 8.3 % Normal 1.7-12.0 The [facility] Comment on above: Performed By: #### C BC #### [facility] [address] [place] [address] Dr. Anthony Bonilla NEUT # 11.2 103/ul Critically high 1.4-6.5 [facility] Comment on above: Performed By: #### C BC #### [facility] [address] [place] [address] Dr. Anthony Bonilla Neutrophils/100 WBC (Bld) 84.6 % Critically high 43.0-75.0 The [facility] Comment on above: Performed By: #### C BC #### [facility] [address] [place] [address] Dr. Anthony Bonilla Platelet mean volume (Bld) [Entitic vol] 9.7 fL Normal 9.5-13.5 [facility] Comment on above: Performed By: #### C BC #### [facility] [address] [place] [address] Dr. Anthony Bonilla PLT 274 103/ul Normal 150-450 [facility] Comment on above: Performed By: #### C BC #### [facility] [address] [place] [address] Dr. Anthony Bonilla RBC 3.87 106/ul Critically low 4.20-5.40 [facility] Comment on above: Performed By: #### C BC #### [facility] [address] [place] [address] Dr. Anthony Bonilla WBC 13.2 103/ul Critically high 4.0-11.0 [facility] Comment on above: Performed By: #### C BC #### [facility] [address] [place] [address] HEAD WO CONon [...] Bilirubin Ql (U) Negative Normal NEGATIVE [facility] Comment on above: Performed By: #### C BC #### [facility] [address] [place] [address] Dr. Anthony Bonilla Clarity (U) CLEAR Normal CLEAR The [facility] Comment on above: Performed By: #### C BC #### [facility] [address] [place] [address] Dr. Anthony Bonilla Color (U) LT. YELLOW Normal YELLOW [facility] Comment on above: Performed By: #### C BC #### [facility] [address] [place] [address] Dr. Anthony BANGURA A micrscopic examina tion will be performed if indicated. Normal The [facility] Comment on above: Performed By: #### C BC #### [facility] [address] [place] [address] Dr. Anthony Bonilla Glucose Ql (U) Negative Normal NEGATIVE [facility] Comment on above: Performed By: #### C BC #### [facility] [address] [place] [address] Dr. Anthony Bonilla Hemoglobin Ql (U) LARGE Abnormal NEGATIVE [facility] Comment on above: Performed By: #### C BC #### [facility] [address] [place] [address] Dr. Anthony Bonilla Ketones Ql (U) Negative Normal NEGATIVE [facility] Comment on above: Performed By: #### C BC #### [facility] [address] [place] [address] Dr. Anthony Bonilla LEUKOCYTES SMALL Abnormal NEGATIVE [facility] Comment on above: Performed By: #### C BC #### [facility] [address] [place] [address] Dr. Anthony Bonilla Nitrite Ql (U) Positive Abnormal NEGATIVE [facility] Comment on above: Performed By: #### C BC #### [facility] [address] [place] [address] Dr. Anthony Bonilla pH (U) 7.0 [pH] Normal 5-9 [facility] Comment on above: Performed By: #### C BC #### [facility] [address] [place] [address] Dr. Anthony Bonilla Protein (U) [Mass/Vol] 30 mg/dL Abnormal NEGAT JAMAR/ TRACE The [facility] Comment on above: Performed By: #### C BC #### [facility] [address] [place] [address] Dr. Anthony Bonilla SPEC GRAVITY 1.015 Normal 1.005-<=1. 025 [facility] Comment on above: Performed By: #### C BC #### [facility] [address] [place] [address] Dr. Anthony Bonilla UR MICRO IND INDICATED Normal [facility] Comment on above: Performed By: #### C BC #### [facility] [address] [place] [address] Dr. Anthony Bonilla Urobilinogen Qn (U) 1.0 {Gen'U}/dL Normal 0.2 - 1. 0 [facility] Comment on above: Performed By: #### C BC #### [facility] [address] [place] [address] Dr. Anthony Bonilla PROF 14(COMP METB)on 023 Albumin [Mass/Vol] 3.4 g/dL Normal 3.4-5.0 [facility] Comment on above: Performed By: #### U RCX #### [facility] [address] [place] [address] Dr. Anthony Bonilla Albumin/Globulin [Mass ratio] 1.2 {ratio} Normal [facility] Comment on above: Performed By: #### U RCX #### [facility] [address] [place] [address] Dr. Anthony Bonilla ALP [Catalytic activity/Vol] 26 U/L Critically low 46-116 [facility] Comment on above: Performed By: #### U RCX #### [facility] [address] [place] [address] Dr. Anthony Bonilla ALT [Catalytic activity/Vol] 21 U/L Normal 14-59 [facility] Comment on above: Performed By: #### U RCX #### [facility] [address] [place] [address] Dr. Anthony Bonilla Anion gap [Moles/Vol] 13.7 mmol/L Normal Th e [facility] Comment on above: Performed By: #### U RCX #### [facility] [address] [place] [address] Dr. Anthony Bonilla AST [Catalytic activity/Vol] 20 U/L Normal 15-37 [facility] Comment on above: Performed By: #### U RCX #### [facility] [address] [place] [address] Dr. Anthony Bonilla Bilirubin [Mass/Vol] 1.2 mg/dL Critically high 0.2-1.0 [facility] Comment on above: Performed By: #### U RCX #### [facility] [address] [place] [address] Dr. Anthony Bonilla Calcium [Mass/Vol] 9.4 mg/dL Normal 8.5-10.1 [facility] Comment on above: Performed By: #### U RCX #### [facility] [address] [address] [address] Anthony Bonilla Chloride [Moles/Vol] 99 mmol/L Normal 98-107 [facility] Comment on above: Performed By: #### U RCX #### [facility] [address] [place] [address] Dr. Anthony Bonilla CO2 [Moles/Vol] 29.1 mmol/L Normal 21.0-32.0 [facility] Comment on above: Performed By: #### U RCX #### [facility] [address] [place] [address] Dr. Anthony Bonilla Creatinine [Mass/Vol] 1.02 mg/dL Normal 0.55-1.02 [facility] Comment on above: Performed By: #### U RCX #### [facility] [address] [place] [address] Dr. Anthony Bonilla EGFR-AF BRAZILIAN >60 Normal >=60 [facility] Comment on above: Performed By: #### U RCX #### [facility] [address] [place] [address] Dr. Anthony Bonilla EGFR-NON AF BRAZILIAN 52 mL/min/1.73m2 Critically low >=60 [facility] Comment on above: Performed By: #### U RCX #### [facility] [address] [address] [address] Anthony Bonilla Globulin (S) [Mass/Vol] 2.9 g/dL Normal [facility] Comment on above: Performed By: #### U RCX #### [facility] [address] [place] [address] Dr. Anthony Bonilla Glucose [Mass/Vol] 98 mg/dL Normal 74-106 [facility] Comment on above: Performed By: #### U RCX #### [facility] [address] [place] [address] Dr. Anthony Bonilla Potassium [Moles/Vol] 3.8 mmol/L Normal 3.5-5.1 [facility] Comment on above: Performed By: #### U RCX #### [facility] [address] [place] [address] Dr. Anthony Bonilla Protein [Mass/Vol] 6.3 g/dL Critically low 6.4-8.2 [facility] Comment on above: Performed By: #### U RCX #### [facility] [address] [place] [address] Dr. Anthony Bonilla Sodium [Moles/Vol] 138 mmol/L Normal 136-145 [facility] Comment on above: Performed By: #### U RCX #### [facility] [address] [place] [address] Dr. Anthony Bonilla Urea nitrogen [Mass/Vol] 16.0 mg/dL Normal 7.0-18.0 [facility] Comment on above: Performed By: #### U RCX #### [facility] [address] [place] [address] Dr. Anthony Bonilla Urea nitrogen/Creatinine [Mass ratio] 15.7 mg/mg Normal [facility] Comment on above: Performed By: #### U RCX #### [facility] [address] [place] [address] Dr. Anthony Bonilla URINE MICROSCOPIC ONLYon BACTERIA LARGE Abnormal NONE SEEN [facility] Comment on above: Performed By: #### C BC #### [facility] [address] [place] [address] Dr. Anthony Bonilla Bacteria identified Cx Nom (U) INDICATED Normal [facility] Comment on above: Performed By: #### C BC #### [facility] [address] [place] [address] Dr. Anthony Bonilla CAST NONE SEEN Normal NONE SEEN [facility] Comment on above: Performed By: #### C BC #### [facility] [address] [place] [address] Dr. Anthony Bonilla Crystals LM Nom (Urine sed) NONE SEEN Normal NONE SEEN The [facility] Comment on above: Performed By: #### C BC #### [facility] [address] [place] [address] Dr. Anthony Bonilla Epithelial cells LM Ql (Urine sed) FEW Abnormal NONE SEEN /RARE The [facility] Comment on above: Performed By: #### C BC #### [facility] [address] [place] [address] Dr. Anthony Bonilla MUCOUS NONE SEEN Normal NONE SEEN The [facility] Comment on above: Performed By: #### C BC #### [facility] [address] [place] [address] Dr. Anthony Bonilla RBC 10-20 Abnormal 0-2 [facility] Comment on above: Performed By: #### C BC #### [facility] [address] [place] [address] Dr. Anthony Bonilla WBC 50-75 Abnormal NONE SEEN The [facility] Comment on above: Performed By: #### C BC #### [facility] [address] [place] [address] Dr. Anthony Bonilla CALPROTECTIN, FECALon 2022 Calprotectin, [...] [facility] [address] [place] [address] Dr. Anthony Bonilla QUANTIFERON TB GOLD PLUSon 0 02-19-2022 QuantiFERON Criteria Comment Normal [facility] [address] [place] [address] Dr. Anthony Bonilla QuantiFERON Incubation Incubation performed. Normal [facility] Comment on above: Performed By: #### U RCX #### [facility] [address] [place] [address] Dr. Anthony Bonilla QuantiFERON Mitogen Value >10.00 Normal [facility] Comment on above: Performed By: #### U RCX #### [facility] [address] [place] [address] Dr. Anthony Bonilla QuantiFERON Nil Value 0.07 IU/mL Normal [facility] Comment on above: Performed By: #### U RCX #### [facility] [address] [place] [address] Dr. Anthony Bonilla QuantiFERON TB1 Ag Value 0.08 IU/mL Normal [facility] Comment on above: Performed By: #### U RCX #### [facility] [address] [place] [address] Dr. Anthony Bonilla QuantiFERON TB2 Ag Value 0.07 IU/mL Normal [facility] Comment on above: Performed By: #### U RCX #### [facility] [address] [place] [address] Dr. Anthony Bonilla QuantiFERON-TB Gold Plus Negative Normal Negative [facility] Comment on above: [...] [facility] [address] [place] [address] Dr. Anthony Bonilla HEP B SURFACE ANTIGEN SCREEN on 02-18-2022 HBsAg Screen Negative Normal Negative [facility] Comment on above: Performed By: #### U RCX #### [facility] [address] [place] [address] Dr. Anthony Bonilla HEPATITIS B CORE, IgMon 02-08 Hep B Core Ab, IgM Negative Normal Negative [facility] Comment on above: Performed By: #### U RCX #### [facility] [address] [place] [address] Dr. Anthony Bonilla HEPATITIS B SURFACE ANTIBODY , QUANTon 02-18-2022 Hepatitis B Surf AB Quant <3.1 Critically low Immunity>9 .9 [facility] Comment on above: Result Comment: Stat us of Immunity Anti-HBs Level Inconsistent with Immunity 0.0 - 9.9 Consistent with Immunity >9.9 Performed By: #### C BC #### [facility] [address] [place] [address] Dr. Anthony Bonilla CBC AUTO DIFFon 02-17-2022 BASO # 0.0 103/ul Normal 0.0-0.1 [facility] Comment on above: Performed By: #### U RCX #### [facility] [address] [place] [address] Dr. Anthony Bonilla Basophils/100 WBC (Bld) 0.4 % Normal 0.2-2.0 [facility] Comment on above: Performed By: #### U RCX #### [facility] [address] [place] [address] Dr. Anthony Bonilla EO # 0.0 103/ul Normal 0.0-0.7 [facility] Comment on above: Performed By: #### U RCX #### [facility] [address] [place] [address] Dr. Anthony Bonilla Eosinophils/100 WBC (Bld) 0.5 % Critically low 0.9-7.0 [facility] Comment on above: Performed By: #### U RCX #### [facility] [address] [place] [address] Dr. Anthony Bonilla Erythrocyte distribution width (RBC) [Ratio] 14.7 % Normal 11.0-15.0 [facility] Comment on above: Performed By: #### U RCX #### [facility] [address] [address] [address] Anthony Bonilla Hematocrit (Bld) [Volume fraction] 33.2 % Critically low 36.0-48.0 [facility] Comment on above: Performed By: #### U RCX #### [facility] [address] [address] [address] Anthony Bonilla Hemoglobin (Bld) [Mass/Vol] 11.0 g/dL Critically low 12.0-16.0 [facility] Comment on above: Performed By: #### U RCX #### [facility] [address] [address] [address] Anthony Bonilla IG # 0.02 10e3/ul Normal 0.00-0.03 [facility] Comment on above: Performed By: #### U RCX #### [facility] [address] [place] [address] Dr. Anthony Bonilla IG % 0.2 % Normal 0.0-0.5 [facility] Comment on above: Performed By: #### U RCX #### [facility] [address] [place] [address] Dr. Anthony Bonilla LYMPH # 1.3 103/ul Normal 1.2-3.8 [facility] Comment on above: Performed By: #### U RCX #### [facility] [address] [place] [address] Dr. Anthony Bonilla Lymphocytes/100 WBC (Bld) 14.8 % Critically low 20.5-60.0 [facility] Comment on above: Performed By: #### U RCX #### [facility] [address] [place] [address] Dr. Anthony Bonilla MANUAL DIFF REQ NO Normal [facility] Comment on above: Performed By: #### U RCX #### [facility] [address] [place] [address] Dr. Anthony Bonilla MCH (RBC) [Entitic mass] 29.0 pg Normal 26.7-34.0 [facility] Comment on above: Performed By: #### U RCX #### [facility] [address] [address] [address] Anthony Bonilla MCHC (RBC) [Mass/Vol] 33.1 g/dL Normal 29.9-35.2 [facility] Comment on above: Performed By: #### U RCX #### [facility] [address] [place] [address] [address] Anthony Bonilla MCV (RBC) [Entitic vol] 87.6 fL Normal 81.0-99.0 [facility] Comment on above: Performed By: #### U RCX #### [facility] [address] [address] [address] Anthony Bonilla MONO # 0.8 103/ul Normal 0.3-0.8 [facility] Comment on above: Performed By: #### U RCX #### [facility] [address] [place] [address] Dr. Anthony Bonilla Monocytes/100 WBC (Bld) 9.6 % Normal 1.7-12.0 [facility] Comment on above: Performed By: #### U RCX #### [facility] [address] [place] [address] Dr. Anthony Bonilla NEUT # 6.3 103/ul Normal 1.4-6.5 [facility] Comment on above: Performed By: #### U RCX #### [facility] [address] [place] [address] Dr. Anthony Bonilla Neutrophils/100 WBC (Bld) 74.5 % Normal 43.0-75.0 [facility] Comment on above: Performed By: #### U RCX #### [facility] [address] [place] [address] Dr. Anthony Bonilla Platelet mean volume (Bld) [Entitic vol] 9.8 fL Normal 9.5-13.5 [facility] Comment on above: Performed By: #### U RCX #### [facility] [address] [place] [address] Dr. Anthony Bonilla PLT 318 103/ul Normal 150-450 [facility] Comment on above: Performed By: #### U RCX #### [facility] [address] [address] [address] Anthony Bonilla RBC 3.79 106/ul Critically low 4.20-5.40 [facility] Comment on above: Performed By: #### U RCX #### [facility] [address] [address] [address] Anthony Bonilla WBC 8.5 103/ul Normal 4.0-11.0 [facility] Comment on above: Performed By: #### U RCX #### [facility] [address] [place] [address] Dr. Anthony Bonilla PROF 14(COMP METB)on 023 Albumin [Mass/Vol] 3.6 g/dL Normal 3.4-5.0 [facility] Comment on above: Performed By: #### U RCX #### [facility] [address] [place] [address] Dr. Anthony Bonilla Albumin/Globulin [Mass ratio] 1.2 {ratio} Normal [facility] Comment on above: Performed By: #### U RCX #### [facility] [address] [address] [address] Anthony Bonilla ALP [Catalytic activity/Vol] 27 U/L Critically low 46-116 [facility] Comment on above: Performed By: #### U RCX #### [facility] [address] [place] [address] Dr. Anthony Bonilla ALT [Catalytic activity/Vol] 21 U/L Normal 14-59 [facility] Comment on above: Performed By: #### U RCX #### [facility] [address] [address] [address] Anthony Bonilla Anion gap [Moles/Vol] 13.5 mmol/L Normal [facility] Comment on above: Performed By: #### U RCX #### [facility] [address] [place] [address] Dr. Anthony Bonilla AST [Catalytic activity/Vol] 19 U/L Normal 15-37 [facility] Comment on above: Performed By: #### U RCX #### [facility] [address] [address] [address] Anthony Bonilla Bilirubin [Mass/Vol] 0.6 mg/dL Normal 0.2-1.0 [facility] Comment on above: Performed By: #### U RCX #### [facility] [address] [address] [address] Anthony Bonilla Calcium [Mass/Vol] 9.2 mg/dL Normal 8.5-10.1 [facility] Comment on above: Performed By: #### U RCX #### [facility] [address] [address] [address] Anthony Bonilla Chloride [Moles/Vol] 104 mmol/L Normal 98-107 [facility] Comment on above: Performed By: #### U RCX #### [facility] [address] [address] [address] Anthony Bonilla CO2 [Moles/Vol] 28.9 mmol/L Normal 21.0-32.0 [facility] Comment on above: Performed By: #### U RCX #### [facility] [address] [address] [address] Anthony Bonilla Creatinine [Mass/Vol] 1.21 mg/dL Critically high 0.55-1.02 [facility] Comment on above: Performed By: #### U RCX #### [facility] [address] [address] [address] Anthony Bonilla EGFR-AF BRAZILIAN 51 mL/min/1.73m2 Critically low >=60 [facility] Comment on above: Performed By: #### U RCX #### [facility] [address] [address] [address] Anthony Bonilla EGFR-NON AF BRAZILIAN 42 mL/min/1.73m2 Critically low >=60 [facility] Comment on above: Performed By: #### U RCX #### [facility] [address] [address] [address] Anthony Bonilla Globulin (S) [Mass/Vol] 3.1 g/dL Normal [facility] Comment on above: Performed By: #### U RCX #### [facility] [address] [address] [address] Anthony Bonilla Glucose [Mass/Vol] 107 mg/dL Critically high 74-106 [facility] Comment on above: Performed By: #### U RCX #### [facility] [address] [address] [address] Anthony Bonilla Potassium [Moles/Vol] 3.4 mmol/L Critically low 3.5-5.1 [facility] Comment on above: Performed By: #### U RCX #### [facility] [address] [address] [address] Anthony Bonilla Protein [Mass/Vol] 6.7 g/dL Normal 6.4-8.2 [facility] Comment on above: Performed By: #### U RCX #### [facility] [address] [address] [address] Anthony Bonilla Sodium [Moles/Vol] 143 mmol/L Normal 136-145 [facility] Comment on above: Performed By: #### U RCX #### [facility] [address] [address] [address] Anthony Bonilla Urea nitrogen [Mass/Vol] 22.0 mg/dL Critically high 7.0-18.0 [facility] Comment on above: Performed By: #### U RCX #### [facility] [address] [address] [address] Anthony Bonilla Urea nitrogen/Creatinine [Mass ratio] 18.2 mg/mg Normal [facility] Comment on above: Performed By: #### U RCX #### [facility] [address] [address] [address] Anthony Bonilla Automated erythrocytes count in urine sediment (number/area)Ordered By: Gypsy Mcmahon on 02-16-2022 RBC Auto (Urine sed) [#/Area] 0-1 [HPF] 0-4 [facility] Automated leukocytes count i n urine sediment (number/area)Ordered By: Gypsy Mcmahon on 02-16-2022 WBC Auto (Urine sed) [#/Area] 20-49 [HPF] 0-4 [facility] Bilirubin Test strip Ql (U)O rdered By: Gypsy Mcmahon on 02-16-2022 Bilirubin Ql (U) Negative Negative [facility] Color Auto (U)Ordered By: Nicole Mcmahon on 02-16-2022 Color (U) Yellow Yellow [facility] Ketones Auto test strip (U) [Mass/Vol]Ordered By: Gypsy Mcmahon on 02-16-2022 Ketones (U) [Mass/Vol] Trace Negative [facility] - UrinalysisOrder ed By: Gypsy Mcmahon on 02-16-2022 Hyaline casts LM Ql (Urine sed) 9-19 [LPF] 0-8 [facility] Nitrite Test strip Ql (U)Ord ered By: Gypsy Mcmahon on 02-16-2022 Nitrite Ql (U) Positive Negative [facility] Protein Auto test strip (U) [Mass/Vol]Ordered By: Gypsy Mcmahon on 02-16-2022 Protein (U) [Mass/Vol] Negative Negative [facility] Specific gravity Auto test s trip (U) [Rel density]Ordered By: Gypsy Mcmahon on 02-16-2022 Specific gravity (U) [Rel density] 1.018 1.001-1.03 0 [facility] Squamous epithelial cells de tection in urine sediment by light microscopyOrdered By: Gypsy Mcmahon on 02-16-2022 Epithelial cells.squamous LM Ql (Urine sed) 5-9 [HPF] 0-2 [facility] Urine Cultureon 02-16-2022 Urine Culture >100,000 [employer] Other Urine Culture <16 Susceptible [employer] Other Urine Culture <8/4 Susceptible [employer] Other Urine Culture <4 Susceptible [employer] Other Urine Culture <2 Susceptible [employer] Other Urine Culture <1 Susceptible [employer] Other Urine Culture <0.25 Susceptible [employer] Other Urine Culture <0.5 Susceptible [employer] Other Urine Culture <32 Susceptible [employer] Other Urine Culture <0.5/9.5 Susceptible [employer] Other Urine bacteria detection by automated methodOrdered By: Gypsy Mcmahon on 02-16-2022 Bacteria Auto Ql (U) 2+ None Seen [facility] Urine clarity by refractomet ry automatedOrdered By: Gypsy Mcmahon on 02-16-2022 Clarity Refractometry automated (U) Cloudy Clear [facility] Urine culture routineOrdered By: Gypsy Mcmahon on 02-16-2022 Bacteria identified Cx Nom (U) Klebsiella variicola [facility] Urine glucose measurement by automated test strip (mass/volume)Ordered By: Gypsy Mcmahon on 02-16-2022 Glucose Auto test strip (U) [Mass/Vol] Normal mg/dL Normal [facility] Urine hemoglobin detection b y automated test stripOrdered By: Gypsy Mcmahon on 02-16-2022 Hemoglobin Auto test strip Ql (U) Negative Negative [facility] Urine leukocyte esterase det ection by automated test stripOrdered By: Gypsy Mcmahon on 02-16-2022 Leukocyte esterase Auto test strip Ql (U) 2+ Negative [facility] Urobilinogen Auto test strip (U) [Mass/Vol]Ordered By: Gypsy Mcmahon on 02-16-2022 Urobilinogen (U) [Mass/Vol] Normal mg/dL Normal [facility] pH Auto test strip (U)Ordere d By: Gypsy Mcmahon on 02-16-2022 pH (U) 5.5 [pH] 5.0-9.0 [facility] CBC AUTO DIFFon 01-15-2022 BASO # 0.0 103/ul Normal 0.0-0.1 [facility] Comment on above: Performed By: #### C BC #### [facility] [address] [address] [address] Anthony Bonilla Basophils/100 WBC (Bld) 0.5 % Normal 0.2-2.0 [facility] Comment on above: Performed By: #### C BC #### [facility] [address] [place] [address] Dr. Anthony Bonilla EO # 0.1 103/ul Normal 0.0-0.7 [facility] Comment on above: Performed By: #### C BC #### [facility] [address] [place] [address] Dr. Anthony Bonilla Eosinophils/100 WBC (Bld) 0.9 % Normal 0.9-7.0 [facility] Comment on above: Performed By: #### C BC #### [facility] [address] [place] [address] Dr. Anthony Bonilla Erythrocyte distribution width (RBC) [Ratio] 14.8 % Normal 11.0-15.0 [facility] Comment on above: Performed By: #### C BC #### [facility] [address] [place] [address] Dr. Anthony Bonilla Hematocrit (Bld) [Volume fraction] 30.3 % Critically low 36.0-48.0 [facility] Comment on above: Performed By: #### C BC #### [facility] [address] [place] [address] Dr. Anthony Bonilla Hemoglobin (Bld) [Mass/Vol] 9.8 g/dL Critically low 12.0-16.0 [facility] Comment on above: Performed By: #### C BC #### [facility] [address] [place] [address] Dr. Anthony Bonilla IG # 0.03 10e3/ul Normal 0.00-0.03 [facility] Comment on above: Performed By: #### C BC #### [facility] [address] [place] [address] Dr. Anthony Bonilla IG % 0.3 % Normal 0.0-0.5 [facility] Comment on above: Performed By: #### C BC #### [facility] [address] [place] [address] Dr. Anthony Bonilla LYMPH # 1.4 103/ul Normal 1.2-3.8 [facility] Comment on above: Performed By: #### C BC #### [facility] [address] [place] [address] Dr. Anthony Bonilla Lymphocytes/100 WBC (Bld) 15.7 % Critically low 20.5-60.0 [facility] Comment on above: Performed By: #### C BC #### [facility] [address] [place] [address] Dr. Anthony Bonilla MANUAL DIFF REQ NO Normal [facility] Comment on above: Performed By: #### C BC #### [facility] [address] [place] [address] Dr. Anthony Bonilla MCH (RBC) [Entitic mass] 30.0 pg Normal 26.7-34.0 [facility] Comment on above: Performed By: #### C BC #### [facility] [address] [place] [address] Dr. Anthony Bonilla MCHC (RBC) [Mass/Vol] 32.3 g/dL Normal 29.9-35.2 [facility] Comment on above: Performed By: #### C BC #### [facility] [address] [place] [address] Dr. Anthony Bonilla MCV (RBC) [Entitic vol] 92.7 fL Normal 81.0-99.0 [facility] Comment on above: Performed By: #### C BC #### [facility] [address] [place] [address] Dr. Anthony Bonilla MONO # 1.1 103/ul Critically high 0.3-0.8 [facility] Comment on above: Performed By: #### C BC #### [facility] [address] [place] [address] Dr. Anthony Bonilla Monocytes/100 WBC (Bld) 12.0 % Normal 1.7-12.0 [facility] Comment on above: Performed By: #### C BC #### [facility] [address] [place] [address] Dr. Anthony Bonilla NEUT # 6.2 103/ul Normal 1.4-6.5 [facility] Comment on above: Performed By: #### C BC #### [facility] [address] [place] [address] Dr. Anthony Bonilla Neutrophils/100 WBC (Bld) 70.6 % Normal 43.0-75.0 [facility] Comment on above: Performed By: #### C BC #### [facility] [address] [place] [address] Dr. Anthony Bonilla Platelet mean volume (Bld) [Entitic vol] 9.8 fL Normal 9.5-13.5 [facility] Comment on above: Performed By: #### C BC #### [facility] [address] [place] [address] Dr. Antohny Bonilla PLT 305 103/ul Normal 150-450 [facility] Comment on above: Performed By: #### C BC #### [facility] [address] [place] [address] Dr. Anthony Bonilla RBC 3.27 106/ul Critically low 4.20-5.40 [facility] Comment on above: Performed By: #### C BC #### [facility] [address] [place] [address] Dr. Anthony Bonilla WBC 8.7 103/ul Normal 4.0-11.0 [facility] Comment on above: Performed By: #### C BC #### [facility] [address] [place] [address] Dr. Anthony Bonilla PROF CHEM 8 (BAS METB)on Anion gap [Moles/Vol] 12.2 mmol/L Normal [facility] Comment on above: Performed By: #### U RCX #### [facility] [address] [place] [address] Dr. Anthony Bonilla Calcium [Mass/Vol] 9.1 mg/dL Normal 8.5-10.1 [facility] Comment on above: Performed By: #### U RCX #### [facility] [address] [place] [address] Dr. Anthony Bonilla Chloride [Moles/Vol] 104 mmol/L Normal 98-107 [facility] Comment on above: Performed By: #### U RCX #### [facility] [address] [place] [address] Dr. Anthony Bonilla CO2 [Moles/Vol] 24.4 mmol/L Normal 21.0-32.0 [facility] Comment on above: Performed By: #### U RCX #### [facility] [address] [address] [address] Anthony Bonilla Creatinine [Mass/Vol] 1.20 mg/dL Critically high 0.55-1.02 [facility] Comment on above: Performed By: #### U RCX #### [facility] [address] [address] [address] Anthoyn Bonilla EGFR-AF BRAZILIAN 52 mL/min/1.73m2 Critically low >=60 [facility] Comment on above: Performed By: #### U RCX #### [facility] [address] [address] [address] Anthony Bonilla EGFR-NON AF BRAZILIAN 43 mL/min/1.73m2 Critically low >=60 [facility] Comment on above: Performed By: #### U RCX #### [facility] [address] [address] [address] Anthony Bonilla Glucose [Mass/Vol] 81 mg/dL Normal 74-106 [facility] Comment on above: Performed By: #### U RCX #### [facility] [address] [address] [address] Anthony Bonilla Potassium [Moles/Vol] 3.6 mmol/L Normal 3.5-5.1 [facility] Comment on above: Performed By: #### U RCX #### [facility] [address] [address] [address] Anthony Bonilla Sodium [Moles/Vol] 137 mmol/L Normal 136-145 [facility] Comment on above: Performed By: #### U RCX #### [facility] [address] [address] [address] Anthony Bonilla Urea nitrogen [Mass/Vol] 21.0 mg/dL Critically high 7.0-18.0 [facility] Comment on above: Performed By: #### U RCX #### [facility] [address] [address] [address] Anthony Bonilla Urea nitrogen/Creatinine [Mass ratio] 17.5 mg/mg Normal [facility] Comment on above: Performed By: #### U RCX #### [facility] [address] [place] [address] Dr. Anthony Bonilla CULTURE URINEon 12-29-2021 CULTURE [...] Trimethoprim/Sulfamethoxa zole <=20 S F Normal [facility] Comment on above: Performed By: #### U RCX #### [facility] [address] [place] [address] Dr. Anthony Bonilla ER URINE PROFILEon 2 Bilirubin Ql (U) SMALL Abnormal NEGATIVE [facility] Comment on above: Performed By: #### C BC #### [facility] [address] [place] [address] Dr. Anthony Bonilla Clarity (U) SL CLOUDY Abnormal CLEAR [facility] Comment on above: Performed By: #### C BC #### [facility] [address] [place] [address] Dr. Anthony Bonilla Color (U) YELLOW Normal YELLOW [facility] Comment on above: Performed By: #### C BC #### [facility] [address] [place] [address] Dr. Anthony BANGURA A micrscopic examina tion will be performed if indicated. Normal [facility] Comment on above: Performed By: #### C BC #### [facility] [address] [place] [address] Dr. Anthony Bonilla Glucose Ql (U) Negative Normal NEGATIVE [facility] Comment on above: Performed By: #### C BC #### [facility] [address] [place] [address] Dr. Anthony Bonilla Hemoglobin Ql (U) Negative Normal NEGATIVE [facility] Comment on above: Performed By: #### C BC #### [facility] [address] [place] [address] Dr. Anthony Bonilla Ketones Ql (U) TRACE Abnormal NEGATIVE [facility] Comment on above: Performed By: #### C BC #### [facility] [address] [place] [address] Dr. Anthony Bonilla LEUKOCYTES MODERATE Abnormal NEGATIVE [facility] Comment on above: Performed By: #### C BC #### [facility] [address] [place] [address] Dr. Anthony Bonilla Nitrite Ql (U) Positive Abnormal NEGATIVE [facility] Comment on above: Performed By: #### C BC #### [facility] [address] [place] [address] Dr. Anthony Bonilla pH (U) 7.5 [pH] Normal 5-9 [facility] Comment on above: Performed By: #### C BC #### [facility] [address] [place] [address] Dr. Anthony Bonilla Protein (U) [Mass/Vol] 30 mg/dL Abnormal NEGAT JAMAR/ TRACE [facility] Comment on above: Performed By: #### C BC #### [facility] [address] [place] [address] Dr. Anthony Bonilla SPEC GRAVITY 1.020 Normal 1.005-<=1. 025 [facility] Comment on above: Performed By: #### C BC #### [facility] [address] [place] [address] Dr. Anthony Bonilla UR MICRO IND INDICATED Normal [facility] Comment on above: Performed By: #### C BC #### [facility] [address] [place] [address] Dr. Anthony Bonilla Urobilinogen Qn (U) 0.2 {Gen'U}/dL Normal 0.2 - 1. 0 [facility] Comment on above: Performed By: #### C BC #### [facility] [address] [place] [address] Dr. Anthony Bonilla URINE MICROSCOPIC ONLYon BACTERIA TRACE Abnormal NONE SEEN [facility] Comment on above: Performed By: #### C BC #### [facility] [address] [place] [address] Dr. Anthony Bonilla Bacteria identified Cx Nom (U) INDICATED Normal [facility] Comment on above: Performed By: #### C BC #### [facility] [address] [place] [address] Dr. Anthony Bonilla CAST NONE SEEN Normal NONE SEEN [facility] Comment on above: Performed By: #### C BC #### [facility] [address] [place] [address] Dr. Anthony Bonilla Crystals LM Nom (Urine sed) NONE SEEN Normal NONE SEEN [facility] Comment on above: Performed By: #### C BC #### [facility] [address] [place] [address] Dr. Anthony Bonilla Epithelial cells LM Ql (Urine sed) FEW Abnormal NONE SEEN /RARE [facility] Comment on above: Performed By: #### C BC #### [facility] [address] [place] [address] Dr. Anthony Bonilla MUCOUS NONE SEEN Normal NONE SEEN [facility] Comment on above: Performed By: #### C BC #### [facility] [address] [place] [address] Dr. Anthony Bonilla RBC 0-2 Normal 0-2 [facility] Comment on above: Performed By: #### C BC #### [facility] [address] [place] [address] Dr. Anthony Bonilla WBC 5-10 Abnormal NONE SEEN [facility] Comment on above: Performed By: #### C BC #### [facility] [address] [place] [address] Dr. Anthony Bonilla PRBC LEUKOREDUCEDon 11-20-19 PRBC LEUKOREDUCED Cross Match Result Compatible Unit Blood Type A Pos Unit Number [id number] Status Information Transfused Product ID Red Blood Cells Product Code [id number] Normal [facility] Comment on above: Performed By: #### P RBC #### [facility] [address] [place] [address] Dr. Anthony Bonilla CBC AUTO DIFFon 11-10-2021 BASO # 0.0 103/ul Normal 0.0-0.1 [facility] Comment on above: Performed By: #### C BC #### [facility] [address] [place] [address] Dr. Anthony Bonilla Basophils/100 WBC (Bld) 0.7 % Normal 0.2-2.0 [facility] Comment on above: Performed By: #### C BC #### [facility] [address] [place] [address] Dr. Anthony Bonilla EO # 0.2 103/ul Normal 0.0-0.7 [facility] Comment on above: Performed By: #### C BC #### [facility] [address] [place] [address] Dr. Anthony Bonilla Eosinophils/100 WBC (Bld) 2.7 % Normal 0.9-7.0 [facility] Comment on above: Performed By: #### C BC #### [facility] [address] [place] [address] Dr. Anthony Bonilla Erythrocyte distribution width (RBC) [Ratio] 16.3 % Critically high 11.0-15.0 [facility] Comment on above: Performed By: #### C BC #### [facility] [address] [place] [address] Dr. Anthony Bonilla Hematocrit (Bld) [Volume fraction] 29.0 % Critically low 36.0-48.0 [facility] Comment on above: Performed By: #### C BC #### [facility] [address] [place] [address] Dr. Anthony Bonilla Hemoglobin (Bld) [Mass/Vol] 9.4 g/dL Critically low 12.0-16.0 [facility] Comment on above: Performed By: #### C BC #### [facility] [address] [place] [address] Dr. Anthony Bonilla IG # 0.04 10e3/ul Critically high 0.00-0.03 [facility] Comment on above: Performed By: #### C BC #### [facility] [address] [place] [address] Dr. Anthony Bonilla IG % 0.7 % Critically high 0.0-0.5 [facility] Comment on above: Performed By: #### C BC #### [facility] [address] [place] [address] Dr. Anthony Bonilla LYMPH # 1.2 103/ul Normal 1.2-3.8 [facility] Comment on above: Performed By: #### C BC #### [facility] [address] [place] [address] Dr. Anthony Bonilla Lymphocytes/100 WBC (Bld) 21.5 % Normal 20.5-60.0 [facility] Comment on above: Performed By: #### C BC #### [facility] [address] [place] [address] Dr. Anthony Bonilla MANUAL DIFF REQ NO Normal [facility] Comment on above: Performed By: #### C BC #### [facility] [address] [place] [address] Dr. Anthony Bonilla MCH (RBC) [Entitic mass] 32.3 pg Normal 26.7-34.0 [facility] Comment on above: Performed By: #### C BC #### [facility] [address] [place] [address] Dr. Anthony Bonilla MCHC (RBC) [Mass/Vol] 32.4 g/dL Normal 29.9-35.2 [facility] Comment on above: Performed By: #### C BC #### [facility] [address] [place] [address] Dr. Anthony Bonilla MCV (RBC) [Entitic vol] 99.7 fL Critically high 81.0-99.0 [facility] Comment on above: Performed By: #### C BC #### [facility] [address] [place] [address] Dr. Anthony Bonilla MONO # 0.7 103/ul Normal 0.3-0.8 [facility] Comment on above: Performed By: #### C BC #### [facility] [address] [place] [address] Dr. Anthony Bonilla Monocytes/100 WBC (Bld) 12.6 % Critically high 1.7-12.0 [facility] Comment on above: Performed By: #### C BC #### [facility] [address] [place] [address] Dr. Anthony Bonilla NEUT # 3.4 103/ul Normal 1.4-6.5 [facility] Comment on above: Performed By: #### C BC #### [facility] [address] [place] [address] Dr. Anthony Bonilla Neutrophils/100 WBC (Bld) 61.8 % Normal 43.0-75.0 [facility] Comment on above: Performed By: #### C BC #### [facility] [address] [place] [address] Dr. Anthony Bonilla Platelet mean volume (Bld) [Entitic vol] 9.0 fL Critically low 9.5-13.5 [facility] Comment on above: Performed By: #### C BC #### [facility] [address] [place] [address] Dr. Anthony Bonilla PLT 429 103/ul Normal 150-450 [facility] Comment on above: Performed By: #### C BC #### [facility] [address] [place] [address] Dr. Anthony Bonilla RBC 2.91 106/ul Critically low 4.20-5.40 [facility] Comment on above: Performed By: #### C BC #### [facility] [address] [place] [address] Dr. Anthony Bonilla WBC 5.5 103/ul Normal 4.0-11.0 [facility] Comment on above: Performed By: #### C BC #### [facility] [address] [place] [address] Dr. Anthony Bonilla PROF CHEM 8 (BAS METB)on Anion gap [Moles/Vol] 11.0 mmol/L Normal [facility] Comment on above: Performed By: #### B MP #### [facility] [address] [place] [address] Dr. Anthony Bonilla Calcium [Mass/Vol] 9.2 mg/dL Normal 8.5-10.1 [facility] Comment on above: Performed By: #### B MP #### [facility] [address] [place] [address] Dr. Anthony Bonilla Chloride [Moles/Vol] 107 mmol/L Normal 98-107 [facility] Comment on above: Performed By: #### B MP #### [facility] [address] [place] [address] Dr. Anthony Bonilla CO2 [Moles/Vol] 27.4 mmol/L Normal 21.0-32.0 [facility] Comment on above: Performed By: #### B MP #### [facility] [address] [place] [address] Dr. Anthony Bonilla Creatinine [Mass/Vol] 1.12 mg/dL Critically high 0.55-1.02 [facility] Comment on above: Performed By: #### B MP #### [facility] [address] [place] [address] Dr. Anthony Bonilla EGFR-AF BRAZILIAN 56 mL/min/1.73m2 Critically low >=60 [facility] Comment on above: Performed By: #### B MP #### [facility] [address] [place] [address] Dr. Anthony Bonilla EGFR-NON AF BRAZILIAN 46 mL/min/1.73m2 Critically low >=60 [facility] Comment on above: Performed By: #### B MP #### [facility] [address] [place] [address] Dr. Anthony Bonilla Glucose [Mass/Vol] 89 mg/dL Normal 74-106 [facility] Comment on above: Performed By: #### B MP #### [facility] [address] [place] [address] Dr. Anthony Bonilla Potassium [Moles/Vol] 4.4 mmol/L Normal 3.5-5.1 [facility] Comment on above: Performed By: #### B MP #### [facility] [address] [place] [address] Dr. Anthony Bonilla Sodium [Moles/Vol] 141 mmol/L Normal 136-145 [facility] Comment on above: Performed By: #### B MP #### [facility] [address] [place] [address] Dr. Anthony Bonilla Urea nitrogen [Mass/Vol] 18.0 mg/dL Normal 7.0-18.0 [facility] Comment on above: Performed By: #### B MP #### [facility] [address] [place] [address] Dr. Anthony Bonilla Urea nitrogen/Creatinine [Mass ratio] 16.1 mg/mg Normal [facility] Comment on above: Performed By: #### B MP #### [facility] [address] [place] [address] Dr. Anthony Bonilla CBC AUTO DIFFon 11-04-2021 BASO # 0.0 103/ul Normal 0.0-0.1 [facility] Comment on above: Performed By: #### C BC #### [facility] [address] [place] [address] Dr. Anthony Bonilla Basophils/100 WBC (Bld) 0.2 % Normal 0.2-2.0 [facility] Comment on above: Performed By: #### C BC #### [facility] [address] [place] [address] Dr. Anthony Bonilla EO # 0.1 103/ul Normal 0.0-0.7 [facility] Comment on above: Performed By: #### C BC #### [facility] [address] [place] [address] Dr. Anthony Bonilla Eosinophils/100 WBC (Bld) 0.8 % Critically low 0.9-7.0 [facility] Comment on above: Performed By: #### C BC #### [facility] [address] [place] [address] Dr. Anthony Bonilla Erythrocyte distribution width (RBC) [Ratio] 16.7 % Critically high 11.0-15.0 [facility] Comment on above: Performed By: #### C BC #### [facility] [address] [place] [address] Dr. Anthony Bonilla Hematocrit (Bld) [Volume fraction] 25.6 % Critically low 36.0-48.0 [facility] Comment on above: Performed By: #### C BC #### [facility] [address] [place] [address] Dr. Anthony Bonilla Hemoglobin (Bld) [Mass/Vol] 8.5 g/dL Critically low 12.0-16.0 [facility] Comment on above: Performed By: #### C BC #### [facility] [address] [place] [address] Dr. Anthony Bonilla IG # 0.05 10e3/ul Critically high 0.00-0.03 [facility] Comment on above: Performed By: #### C BC #### [facility] [address] [place] [address] Dr. Anthony Bonilla IG % 0.5 % Normal 0.0-0.5 [facility] Comment on above: Performed By: #### C BC #### [facility] [address] [place] [address] Dr. Anthony Bonilla LYMPH # 0.6 103/ul Critically low 1.2-3.8 [facility] Comment on above: Performed By: #### C BC #### [facility] [address] [place] [address] Dr. Anthony Bonilla Lymphocytes/100 WBC (Bld) 6.2 % Critically low 20.5-60.0 [facility] Comment on above: Performed By: #### C BC #### [facility] [address] [place] [address] Dr. Anthony Bonilla MANUAL DIFF REQ NO Normal [facility] Comment on above: Performed By: #### C BC #### [facility] [address] [place] [address] Dr. Anthony Bonilla MCH (RBC) [Entitic mass] 31.6 pg Normal 26.7-34.0 [facility] Comment on above: Performed By: #### C BC #### [facility] [address] [place] [address] Dr. Anthony Bonilla MCHC (RBC) [Mass/Vol] 33.2 g/dL Normal 29.9-35.2 [facility] Comment on above: Performed By: #### C BC #### [facility] [address] [place] [address] Dr. Anthony Bonilla MCV (RBC) [Entitic vol] 95.2 fL Normal 81.0-99.0 [facility] Comment on above: Performed By: #### C BC #### [facility] [address] [place] [address] Dr. Anthony Bonilla MONO # 0.6 103/ul Normal 0.3-0.8 [facility] Comment on above: Performed By: #### C BC #### [facility] [address] [place] [address] Dr. Anthony Bonilla Monocytes/100 WBC (Bld) 6.1 % Normal 1.7-12.0 [facility] Comment on above: Performed By: #### C BC #### [facility] [address] [place] [address] Dr. Anthony Bonilla NEUT # 8.8 103/ul Critically high 1.4-6.5 [facility] Comment on above: Performed By: #### C BC #### [facility] [address] [place] [address] Dr. Anthony Bonilla Neutrophils/100 WBC (Bld) 86.2 % Critically high 43.0-75.0 [facility] Comment on above: Performed By: #### C BC #### [facility] [address] [place] [address] Dr. Anthony Bonilla Platelet mean volume (Bld) [Entitic vol] 9.8 fL Normal 9.5-13.5 [facility] Comment on above: Performed By: #### C BC #### [facility] [address] [place] [address] Dr. Anthony Bonilla PLT 156 103/ul Normal 150-450 [facility] Comment on above: Performed By: #### C BC #### [facility] [address] [place] [address] Dr. Anthony Bonilla RBC 2.69 106/ul Critically low 4.20-5.40 [facility] Comment on above: Performed By: #### C BC #### [facility] [address] [place] [address] Dr. Anthony Bonilla WBC 10.3 103/ul Normal 4.0-11.0 [facility] Comment on above: Performed By: #### C BC #### [facility] [address] [place] [address] Dr. Anthony Bonilla CULTURE URINEon 11-04-2021 CULTURE [...] F Trimethoprim/Sulfamethoxa zole <=20 S F Normal [facility] Comment on above: Performed By: #### U RCX #### [facility] [address] [place] [address] Dr. Anthony Bonilla PROF CHEM 8 (BAS METB)on Anion gap [Moles/Vol] 12.9 mmol/L Normal [facility] Comment on above: Performed By: #### U RCX #### [facility] [address] [address] [address] Anthony Bonilla Calcium [Mass/Vol] 8.6 mg/dL Normal 8.5-10.1 [facility] Comment on above: Performed By: #### U RCX #### [facility] [address] [address] [address] Anthony Bonilla Chloride [Moles/Vol] 108 mmol/L Critically high 98-107 [facility] Comment on above: Performed By: #### U RCX #### [facility] [address] [place] [address] Dr. Anthony Bonilla CO2 [Moles/Vol] 23.1 mmol/L Normal 21.0-32.0 [facility] Comment on above: Performed By: #### U RCX #### [facility] [address] [address] [address] Anthony Bonilla Creatinine [Mass/Vol] 0.98 mg/dL Normal 0.55-1.02 [facility] Comment on above: Performed By: #### U RCX #### [facility] [address] [place] [address] Dr. Anthony Bonilla EGFR-AF BRAZILIAN >60 Normal >=60 [facility] Comment on above: Performed By: #### U RCX #### [facility] [address] [address] [address] Anthony Bonilla EGFR-NON AF BRAZILIAN 54 mL/min/1.73m2 Critically low >=60 [facility] Comment on above: Performed By: #### U RCX #### [facility] [address] [address] [address] Anthony Bonilla Glucose [Mass/Vol] 86 mg/dL Normal 74-106 [facility] Comment on above: Performed By: #### U RCX #### [facility] [address] [place] [address] Dr. Anthony Bonilla Potassium [Moles/Vol] 4.0 mmol/L Normal 3.5-5.1 [facility] Comment on above: Performed By: #### U RCX #### [facility] [address] [place] [address] Dr. Anthony Bonilla Sodium [Moles/Vol] 140 mmol/L Normal 136-145 [facility] Comment on above: Performed By: #### U RCX #### [facility] [address] [place] [address] Dr. Anthony Bonilla Urea nitrogen [Mass/Vol] 31.0 mg/dL Critically high 7.0-18.0 [facility] Comment on above: Performed By: #### U RCX #### [facility] [address] [place] [address] Dr. Anthony Bonilla Urea nitrogen/Creatinine [Mass ratio] 31.6 mg/mg Normal [facility] Comment on above: Performed By: #### U RCX #### [facility] [address] [place] [address] Dr. Anthony Bonilla CBC AUTO DIFFon 11-03-2021 BASO # 0.0 103/ul Normal 0.0-0.1 [facility] Comment on above: Performed By: #### C BC #### [facility] [address] [place] [address] Dr. Anthony Bonilla Basophils/100 WBC (Bld) 0.3 % Normal 0.2-2.0 [facility] Comment on above: Performed By: #### C BC #### [facility] [address] [place] [address] Dr. Anthony Bonilla EO # 0.1 103/ul Normal 0.0-0.7 [facility] Comment on above: Performed By: #### C BC #### [facility] [address] [place] [address] Dr. Anthony Bonilla Eosinophils/100 WBC (Bld) 0.6 % Critically low 0.9-7.0 [facility] Comment on above: Performed By: #### C BC #### [facility] [address] [place] [address] Dr. Anthony Bonilla Erythrocyte distribution width (RBC) [Ratio] 14.0 % Normal 11.0-15.0 [facility] Comment on above: Performed By: #### C BC #### [facility] [address] [place] [address] Dr. Anthony Bonilla Hematocrit (Bld) [Volume fraction] 23.1 % Critically low 36.0-48.0 [facility] Comment on above: Result Comment: Flui ds given Performed By: #### C BC #### [facility] [address] [place] [address] Dr. Anthony Bonilla Hemoglobin (Bld) [Mass/Vol] 7.6 g/dL Critically low 12.0-16.0 [facility] Comment on above: Performed By: #### C BC #### [facility] [address] [place] [address] Dr. Anthony Bonilla IG # 0.07 10e3/ul Critically high 0.00-0.03 [facility] Comment on above: Performed By: #### C BC #### [facility] [address] [place] [address] Dr. Anthony Bonilla IG % 0.6 % Critically high 0.0-0.5 [facility] Comment on above: Performed By: #### C BC #### [facility] [address] [place] [address] Dr. Anthony Bonilla LYMPH # 0.7 103/ul Critically low 1.2-3.8 [facility] Comment on above: Performed By: #### C BC #### [facility] [address] [place] [address] Dr. Anthony Bonilla Lymphocytes/100 WBC (Bld) 5.7 % Critically low 20.5-60.0 [facility] Comment on above: Performed By: #### C BC #### [facility] [address] [place] [address] Dr. Anthony Bonilla MANUAL DIFF REQ NO Normal [facility] Comment on above: Performed By: #### C BC #### [facility] [address] [place] [address] Dr. Anthony Bonilla MCH (RBC) [Entitic mass] 32.6 pg Normal 26.7-34.0 [facility] Comment on above: Performed By: #### C BC #### [facility] [address] [address] [address] Anthony Bonilla MCHC (RBC) [Mass/Vol] 32.9 g/dL Normal 29.9-35.2 [facility] Comment on above: Performed By: #### C BC #### [facility] [address] [address] [address] Anthony Bonilla MCV (RBC) [Entitic vol] 99.1 fL Critically high 81.0-99.0 [facility] Comment on above: Performed By: #### C BC #### [facility] [address] [place] [address] Dr. Anthony Bonilla MONO # 0.8 103/ul Normal 0.3-0.8 [facility] Comment on above: Performed By: #### C BC #### [facility] [address] [place] [address] Dr. Anthony Bonilla Monocytes/100 WBC (Bld) 6.8 % Normal 1.7-12.0 [facility] Comment on above: Performed By: #### C BC #### [facility] [address] [place] [address] Dr. Anthony Bonilla NEUT # 9.8 103/ul Critically high 1.4-6.5 [facility] Comment on above: Performed By: #### C BC #### [facility] [address] [place] [address] Dr. Anthony Bonilla Neutrophils/100 WBC (Bld) 86.0 % Critically high 43.0-75.0 [facility] Comment on above: Performed By: #### C BC #### [facility] [facility] [address] [address] [address] Anthony Bonilla Platelet mean volume (Bld) [Entitic vol] 9.5 fL Normal 9.5-13.5 [facility] Comment on above: Performed By: #### C BC #### [facility] [address] [place] [address] Dr. Anthony Bonilla PLT 160 103/ul Normal 150-450 [facility] Comment on above: Performed By: #### C BC #### [facility] [address] [place] [address] Dr. Anthony Bonilla RBC 2.33 106/ul Critically low 4.20-5.40 [facility] Comment on above: Performed By: #### C BC #### [facility] [address] [address] [address] Anthony Bonilla WBC 11.4 103/ul Critically high 4.0-11.0 [facility] Comment on above: Performed By: #### C BC #### [facility] [address] [place] [address] Dr. Anthony Bonilla HEMOGLOBIN AND HEMATOCRITon 11-03-2021 Hematocrit (Bld) [Volume fraction] 27.0 % Critically low 36.0-48.0 [facility] Comment on above: Performed By: #### U RCX #### [facility] [address] [place] [address] Dr. Anthony Bonilla Hemoglobin (Bld) [Mass/Vol] 9.1 g/dL Critically low 12.0-16.0 [facility] Comment on above: Performed By: #### U RCX #### [facility] [address] [place] [address] Dr. Anthony Bonilla OCC BLD IMMUNO SCREENon 10-10 OCCULT BLOOD Positive Abnormal NEGATIVE [facility] Comment on above: Performed By: #### C BC #### [facility] [address] [place] [address] Dr. Anthony Bonilla PROF CHEM 8 (BAS METB)on Anion gap [Moles/Vol] 10.7 mmol/L Normal [facility] Comment on above: Performed By: #### C BC #### [facility] [address] [place] [address] Dr. Anthony Bonilla Calcium [Mass/Vol] 8.6 mg/dL Normal 8.5-10.1 [facility] Comment on above: Performed By: #### C BC #### [facility] [address] [address] [address] Anthony Bonilla Chloride [Moles/Vol] 107 mmol/L Normal 98-107 [facility] Comment on above: Performed By: #### C BC #### [facility] [address] [address] [address] Anthony Bonilla CO2 [Moles/Vol] 24.4 mmol/L Normal 21.0-32.0 [facility] Comment on above: Performed By: #### C BC #### [facility] [address] [address] [address] Anthony Bonilla Creatinine [Mass/Vol] 0.98 mg/dL Normal 0.55-1.02 [facility] Comment on above: Performed By: #### C BC #### [facility] [address] [place] [address] Dr. Anthony Bonilla EGFR-AF BRAZILIAN >60 Normal >=60 [facility] Comment on above: Performed By: #### C BC #### [facility] [address] [place] [address] Dr. Anthony Bonilla EGFR-NON AF BRAZILIAN 54 mL/min/1.73m2 Critically low >=60 [facility] Comment on above: Performed By: #### C BC #### [facility] [address] [place] [address] Dr. Anthony Bonilla Glucose [Mass/Vol] 98 mg/dL Normal 74-106 [facility] Comment on above: Performed By: #### C BC #### [facility] [address] [place] [address] Dr. Anthony Bonilla Potassium [Moles/Vol] 4.1 mmol/L Normal 3.5-5.1 [facility] Comment on above: Performed By: #### C BC #### [facility] [address] [place] [address] Dr. Anthony Bonilla Sodium [Moles/Vol] 138 mmol/L Normal 136-145 [facility] Comment on above: Performed By: #### C BC #### [facility] [address] [place] [address] Dr. Anthony Bonilla Urea nitrogen [Mass/Vol] 43.0 mg/dL Critically high 7.0-18.0 [facility] Comment on above: Performed By: #### C BC #### [facility] [address] [place] [address] Dr. Anthony Bonilla Urea nitrogen/Creatinine [Mass ratio] 43.9 mg/mg Normal [facility] Comment on above: Performed By: #### C BC #### [facility] [address] [place] [address] Dr. Anthony Bonilla TYPE AND SCREENon 11-03-2021 TYPE AND SCREEN Negative Normal [facility] Comment on above: Performed By: #### C BC #### [facility] [address] [place] [address] Dr. Anthony Bonilla CBC AUTO DIFFon 11-02-2021 BASO # 0.0 103/ul Normal 0.0-0.1 [facility] Comment on above: Performed By: #### U RCX #### [facility] [address] [place] [address] Dr. Anthony Bonilla Basophils/100 WBC (Bld) 0.3 % Normal 0.2-2.0 [facility] Comment on above: Performed By: #### U RCX #### [facility] [address] [place] [address] Dr. Anthony Bonilla EO # 0.0 103/ul Normal 0.0-0.7 [facility] Comment on above: Performed By: #### U RCX #### [facility] [address] [place] [address] Dr. Anthony Bonilla Eosinophils/100 WBC (Bld) 0.1 % Critically low 0.9-7.0 [facility] Comment on above: Performed By: #### U RCX #### [facility] [address] [place] [address] Dr. Anthony Bonilla Erythrocyte distribution width (RBC) [Ratio] 13.9 % Normal 11.0-15.0 [facility] Comment on above: Performed By: #### U RCX #### [facility] [address] [address] [address] Anthony Bonilla Hematocrit (Bld) [Volume fraction] 31.8 % Critically low 36.0-48.0 [facility] Comment on above: Performed By: #### U RCX #### [facility] [address] [address] [address] Anthony Bonilla Hemoglobin (Bld) [Mass/Vol] 10.5 g/dL Critically low 12.0-16.0 [facility] Comment on above: Performed By: #### U RCX #### [facility] [address] [address] [address] Anthony Bonilla IG # 0.07 10e3/ul Critically high 0.00-0.03 [facility] Comment on above: Performed By: #### U RCX #### [facility] [address] [place] [address] Dr. Anthony Bonilla IG % 0.5 % Normal 0.0-0.5 [facility] Comment on above: Performed By: #### U RCX #### [facility] [address] [address] [address] Anthony Bonilla LYMPH # 0.9 103/ul Critically low 1.2-3.8 [facility] Comment on above: Performed By: #### U RCX #### [facility] [address] [place] [address] Dr. Anthony Bonilla Lymphocytes/100 WBC (Bld) 6.1 % Critically low 20.5-60.0 [facility] Comment on above: Performed By: #### U RCX #### [facility] [address] [address] [address] Anthony Bonilla MANUAL DIFF REQ NO Normal [facility] Comment on above: Performed By: #### U RCX #### [facility] [address] [address] [address] Anthony Bonilla MCH (RBC) [Entitic mass] 32.7 pg Normal 26.7-34.0 [facility] Comment on above: Performed By: #### U RCX #### [facility] [address] [address] [address] Anthony Bonilla MCHC (RBC) [Mass/Vol] 33.0 g/dL Normal 29.9-35.2 [facility] Comment on above: Performed By: #### U RCX #### [facility] [address] [address] [address] Anthony Bonilla MCV (RBC) [Entitic vol] 99.1 fL Critically high 81.0-99.0 [facility] Comment on above: Performed By: #### U RCX #### [facility] [address] [address] [address] Anthony Bonilla MONO # 1.0 103/ul Critically high 0.3-0.8 [facility] Comment on above: Performed By: #### U RCX #### [facility] [address] [place] [address] Dr. Anthony Bonilla Monocytes/100 WBC (Bld) 6.8 % Normal 1.7-12.0 [facility] Comment on above: Performed By: #### U RCX #### [facility] [address] [address] [address] Anthony Bonilla NEUT # 12.1 103/ul Critically high 1.4-6.5 [facility] Comment on above: Performed By: #### U RCX #### [facility] [address] [address] [address] Anthony Bonilla Neutrophils/100 WBC (Bld) 86.2 % Critically high 43.0-75.0 [facility] Comment on above: Performed By: #### U RCX #### [facility] [address] [address] [address] Anthony Bonilla Platelet mean volume (Bld) [Entitic vol] 9.8 fL Normal 9.5-13.5 [facility] Comment on above: Performed By: #### U RCX #### [facility] [address] [address] [address] Anhtony Bonilla PLT 175 103/ul Normal 150-450 [facility] Comment on above: Performed By: #### U RCX #### [facility] [address] [address] [address] Anthony Bonilla RBC 3.21 106/ul Critically low 4.20-5.40 [facility] Comment on above: Performed By: #### U RCX #### [facility] [id number] Anthony Bonilla WBC 14.0 103/ul Critically high 4.0-11.0 [facility] Comment on above: Performed By: #### U RCX #### [facility] [address] [place], [place] [id number] Dr. Anthony Bonilla CT HEAD WO CONon [...] METB)on Anion gap [Moles/Vol] 12.2 mmol/L Normal [facility] Comment on above: Performed By: #### C BC #### [facility] [address] [place] [address] Dr. Anthony Bonilla Calcium [Mass/Vol] 8.7 mg/dL Normal 8.5-10.1 [facility] Comment on above: Performed By: #### C BC #### [facility] [address] [place] [address] Dr. Anthony Bonilla Chloride [Moles/Vol] 103 mmol/L Normal 98-107 [facility] Comment on above: Performed By: #### C BC #### [facility] [address] [address] [address] Anthony Bonilla CO2 [Moles/Vol] 25.7 mmol/L Normal 21.0-32.0 [facility] Comment on above: Performed By: #### C BC #### [facility] [address] [address] [address] Anthony Bonilla Creatinine [Mass/Vol] 1.08 mg/dL Critically high 0.55-1.02 [facility] Comment on above: Performed By: #### C BC #### [facility] [address] [place] [address] Dr. Anthony Bonilla EGFR-AF BRAZILIAN 58 mL/min/1.73m2 Critically low >=60 [facility] Comment on above: Performed By: #### C BC #### [facility] [address] [place] [address] Dr. Anthony Bonilla EGFR-NON AF BRAZILIAN 48 mL/min/1.73m2 Critically low >=60 [facility] Comment on above: Performed By: #### C BC #### [facility] [address] [place] [address] Dr. Anthony Bonilla Glucose [Mass/Vol] 84 mg/dL Normal 74-106 [facility] Comment on above: Performed By: #### C BC #### [facility] [address] [place] [address] Dr. Anthony Bonilla Potassium [Moles/Vol] 4.9 mmol/L Normal 3.5-5.1 [facility] Comment on above: Performed By: #### C BC #### [facility] [address] [address] [address] Anthony Bonilla Sodium [Moles/Vol] 136 mmol/L Normal 136-145 [facility] Comment on above: Performed By: #### C BC #### [facility] [address] [address] [address] Anthony Bonilla Urea nitrogen [Mass/Vol] 33.0 mg/dL Critically high 7.0-18.0 [facility] Comment on above: Performed By: #### C BC #### [facility] [address] [address] [address] Anthony Bonilla Urea nitrogen/Creatinine [Mass ratio] 30.6 mg/mg Normal [facility] Comment on above: Performed By: #### C BC #### [facility] [id number] Anthony Bonilla XR CHEST 1 Von [...] No acute cardiopulmonary abnormality. Electronically authenticated by: GIAAN HOLLY Date: 2021-11-01 22:05 Normal [facility] CARDIAC DARWIN ADMITon 022 CK [Catalytic activity/Vol] 92 U/L Normal 26-192 [facility] Comment on above: Performed By: #### C BC #### [facility] [address] [place] [address] Dr. Anthony Bonilla CK.MB [Mass/Vol] 1.73 ng/mL Normal <=3.60 [facility] Comment on above: Performed By: #### C BC #### [facility] [address] [place] [address] Dr. Anthony Bonilla HSTROP 20.0 pg/mL Normal 4.0-51.3 [facility] Comment on above: Result Comment: CUT- OFF POINTS HAVE BEEN ESTABLISHED BASED ON THE FOURTH UNIVERSAL DEFINITIONS OF MYOCARDIAL INFARCTION. THE UPPER REFERENCE LIMIT (URL) OF TROPONIN, DEFINED THE 99TH PERCENTILE OF cTnI DISTRIBUTION IN A REFERENCE POPULATION, HAS BEEN CONFIRMED THE DECISION THRESHOLD FOR MO DIAGNOSIS. Performed By: #### C BC #### [facility] [address] [place] [address] Dr. Anthony Bonilla CANDIDA 58 ng/mL Normal 9-82 [facility] Comment on above: Performed By: #### C BC #### [facility] [address] [address] [address] Anthony Bonilla CBC AUTO DIFFon 11-01-2021 BASO # 0.0 103/ul Normal 0.0-0.1 [facility] Comment on above: Performed By: #### U RCX #### [facility] [address] [address] [address] Anthony Bonilla Basophils/100 WBC (Bld) 0.2 % Normal 0.2-2.0 [facility] Comment on above: Performed By: #### U RCX #### [facility] [address] [place] [address] Dr. Anthony Bonilla EO # 0.0 103/ul Normal 0.0-0.7 [facility] Comment on above: Performed By: #### U RCX #### [facility] [address] [place] [address] Dr. Anthony Bonilla Eosinophils/100 WBC (Bld) 0.0 % Critically low 0.9-7.0 [facility] Comment on above: Performed By: #### U RCX #### [facility] [address] [place] [address] Dr. Anthony Bonilla Erythrocyte distribution width (RBC) [Ratio] 14.1 % Normal 11.0-15.0 [facility] Comment on above: Performed By: #### U RCX #### [facility] [address] [place] [address] Dr. Anthony Bonilla Hematocrit (Bld) [Volume fraction] 36.0 % Normal 36.0-48.0 [facility] Comment on above: Performed By: #### U RCX #### [facility] [address] [address] [address] Anthony Bonilla Hemoglobin (Bld) [Mass/Vol] 12.1 g/dL Normal 12.0-16.0 [facility] Comment on above: Performed By: #### U RCX #### [facility] [address] [place] [address] Dr. Anthony Bonilla IG # 0.11 10e3/ul Critically high 0.00-0.03 [facility] Comment on above: Performed By: #### U RCX #### [facility] [address] [address] [address] Anthony Bonilla IG % 0.5 % Normal 0.0-0.5 [facility] Comment on above: Performed By: #### U RCX #### [facility] [address] [address] [address] Anthony Bonilla LYMPH # 0.7 103/ul Critically low 1.2-3.8 [facility] Comment on above: Performed By: #### U RCX #### [facility] [address] [address] [address] Anthony Bonilla Lymphocytes/100 WBC (Bld) 3.2 % Critically low 20.5-60.0 [facility] Comment on above: Performed By: #### U RCX #### [facility] [address] [address] [address] Anthony Bonilla MANUAL DIFF REQ NO Normal [facility] Comment on above: Performed By: #### U RCX #### [facility] [address] [address] [address] Anthony Bonilla MCH (RBC) [Entitic mass] 33.0 pg Normal 26.7-34.0 [facility] Comment on above: Performed By: #### U RCX #### [facility] [address] [address] [address] Anthony Bonilla MCHC (RBC) [Mass/Vol] 33.6 g/dL Normal 29.9-35.2 [facility] Comment on above: Performed By: #### U RCX #### [facility] [address] [address] [address] Anthony Bonilla MCV (RBC) [Entitic vol] 98.1 fL Normal 81.0-99.0 [facility] Comment on above: Performed By: #### U RCX #### [facility] [address] [address] [address] Anthony Bonilla MONO # 1.1 103/ul Critically high 0.3-0.8 [facility] Comment on above: Performed By: #### U RCX #### [facility] [address] [place] [address] Dr. Anthony Bonilla Monocytes/100 WBC (Bld) 4.8 % Normal 1.7-12.0 [facility] Comment on above: Performed By: #### U RCX #### [facility] [address] [place] [address] Dr. Anthony Bonilla NEUT # 20.3 103/ul Critically high 1.4-6.5 [facility] Comment on above: Performed By: #### U RCX #### [facility] [address] [place] [address] Dr. Anthony Bonilla Neutrophils/100 WBC (Bld) 91.3 % Critically high 43.0-75.0 [facility] Comment on above: Performed By: #### U RCX #### [facility] [address] [place] [address] Dr. Anthony Bonilla Platelet mean volume (Bld) [Entitic vol] 10.8 fL Normal 9.5-13.5 [facility] Comment on above: Performed By: #### U RCX #### [facility] [address] [place] [address] Dr. Anthony Bonilla PLT 179 103/ul Normal 150-450 [facility] Comment on above: Performed By: #### U RCX #### [facility] [address] [place] [address] Dr. Anthony Bonilla RBC 3.67 106/ul Critically low 4.20-5.40 [facility] Comment on above: Performed By: #### U RCX #### [facility] [address] [place] [address] Dr. Anthony Bonilla WBC 22.2 103/ul Critically high 4.0-11.0 [facility] Comment on above: Performed By: #### U RCX #### [facility] [address] [place] [address] Dr. Anthony Bonilla CULTURE BLOODon 11-01-2021 Microscopic examination of blood, culture Culture Observations: NO GROWTH AT 5 DAYS. Normal [facility] Comment on above: Performed By: #### B LDCX2 #### [facility] [address] [place] [address] Dr. Anthony Bonilla Performed By: #### C BC #### [facility] [address] [place] [address] Dr. Anthony Bonilla Covid-19 PCR ([facility])on 10-10 SARS-CoV-2 (COVID-19) RNA OH+probe Ql [...] for this test is supported by the [place] of Health and Human Service's declaration that [...] [facility] [address] [place] [address] Dr. Anthony Bonilla ER URINE PROFILEon Bilirubin Ql (U) Negative Normal NEGATIVE [facility] Comment on above: Performed By: #### U RCX #### [facility] [address] [place] [address] Dr. Anthony Bonilla Clarity (U) CLEAR Normal CLEAR [facility] Comment on above: Performed By: #### U RCX #### [facility] [address] [place] [address] Dr. Anthony Bonilla Color (U) LT. YELLOW Normal YELLOW [facility] Comment on above: Performed By: #### U RCX #### [facility] [address] [place] [address] Dr. Anthony Bonilla ERUAHD A micrscopic examina tion will be performed if indicated. Normal [facility] Comment on above: Performed By: #### U RCX #### [facility] [address] [place] [address] Dr. Anthony Bonilla Glucose Ql (U) Negative Normal NEGATIVE [facility] Comment on above: Performed By: #### U RCX #### [facility] [address] [place] [address] Dr. Anthony Bonilla Hemoglobin Ql (U) TRACE-INTACT Abnormal NEGATIVE [facility] Comment on above: Performed By: #### U RCX #### [facility] [address] [place] [address] Dr. Anthony Bonilla Ketones Ql (U) Negative Normal NEGATIVE [facility] Comment on above: Performed By: #### U RCX #### [facility] [address] [place] [address] Dr. Anthony Bonilla LEUKOCYTES Negative Normal NEGATIVE [facility] Comment on above: Performed By: #### U RCX #### [facility] [address] [place] [address] Dr. Anthony Bonilla Nitrite Ql (U) Negative Normal NEGATIVE [facility] Comment on above: Performed By: #### U RCX #### [facility] [address] [place] [address] Dr. Anthnoy Bonilla pH (U) 6.0 [pH] Normal 5-9 [facility] Comment on above: Performed By: #### U RCX #### [facility] [facility] [address] [place] [address] Dr. Anthony Bonilla SPEC GRAVITY 1.020 Normal 1.005-<=1. 025 [facility] Comment on above: Performed By: #### U RCX #### [facility] [address] [place] [address] Dr. Anthony Bonilla UA PROTEIN Negative Normal NEGATIVE/ TRACE [facility] Comment on above: Performed By: #### U RCX #### [facility] [address] [place] [address] Dr. Anthony Bonilla UR MICRO IND INDICATED Normal [facility] Comment on above: Performed By: #### U RCX #### [facility] [address] [place] [address] Dr. Anthony Bonilla Urobilinogen Qn (U) 1.0 {Gen'U}/dL Normal 0.2 - 1. 0 [facility] Comment on above: Performed By: #### U RCX #### [facility] [address] [place] [address] Dr. Anthony Bonilla LACTATE/LACTIC ACIDon 2021 Lactate [Moles/Vol] 1.6 mmol/L Normal 0.4-1.9 [facility] Comment on above: Performed By: #### C BC #### [facility] [address] [place] [address] Dr. Anthony Bonilla PROF 14(COMP METB)on 022 Albumin [Mass/Vol] 3.2 g/dL Critically low 3.4-5.0 [facility] Comment on above: Performed By: #### C BC #### [facility] [address] [place] [address] Dr. Anthony Bonilla Albumin/Globulin [Mass ratio] 0.9 {ratio} Normal [facility] Comment on above: Performed By: #### C BC #### [facility] [address] [place] [address] Dr. Anthony Bonilla ALP [Catalytic activity/Vol] 26 U/L Critically low 46-116 [facility] Comment on above: Performed By: #### C BC #### [facility] [address] [place] [address] Dr. Anthony Bonilla ALT [Catalytic activity/Vol] 32 U/L Normal 14-59 [facility] Comment on above: Performed By: #### C BC #### [facility] [address] [place] [address] Dr. Anthony Bonilla Anion gap [Moles/Vol] 11.5 mmol/L Normal [facility] Comment on above: Performed By: #### C BC #### [facility] [address] [place] [address] Dr. Anthony Bonilla AST [Catalytic activity/Vol] 16 U/L Normal 15-37 [facility] Comment on above: Performed By: #### C BC #### [facility] [address] [address] [address] Anthony Bonilla Bilirubin [Mass/Vol] 1.2 mg/dL Critically high 0.2-1.0 [facility] Comment on above: Performed By: #### C BC #### [facility] [address] [address] [address] Anthony Bonilla Calcium [Mass/Vol] 9.0 mg/dL Normal 8.5-10.1 [facility] Comment on above: Performed By: #### C BC #### [facility] [address] [address] [address] Anthony Bonilla Chloride [Moles/Vol] 102 mmol/L Normal 98-107 [facility] Comment on above: Performed By: #### C BC #### [facility] [address] [address] [address] Anthony Bonilla CO2 [Moles/Vol] 25.2 mmol/L Normal 21.0-32.0 [facility] Comment on above: Performed By: #### C BC #### [facility] [address] [address] [address] Anthony Bonilla Creatinine [Mass/Vol] 1.25 mg/dL Critically high 0.55-1.02 [facility] Comment on above: Performed By: #### C BC #### [facility] [address] [address] [address] Anthony Bonilla EGFR-AF BRAZILIAN 49 mL/min/1.73m2 Critically low >=60 [facility] Comment on above: Performed By: #### C BC #### [facility] [address] [address] [address] Anthony Bonilla EGFR-NON AF BRAZILIAN 41 mL/min/1.73m2 Critically low >=60 [facility] Comment on above: Performed By: #### C BC #### [facility] [address] [address] [address] Anthony Bonilla Globulin (S) [Mass/Vol] 3.4 g/dL Normal [facility] Comment on above: Performed By: #### C BC #### [facility] [address] [address] [address] Anthony Bonilla Glucose [Mass/Vol] 102 mg/dL Normal 74-106 [facility] Comment on above: Performed By: #### C BC #### [facility] [address] [address] [address] Anthony Bonilla Potassium [Moles/Vol] 4.7 mmol/L Normal 3.5-5.1 [facility] Comment on above: Performed By: #### C BC #### [facility] [address] [address] [address] Anthony Bonilla Protein [Mass/Vol] 6.6 g/dL Normal 6.4-8.2 [facility] Comment on above: Performed By: #### C BC #### [facility] [address] [address] [address] Anthony Bonilla Sodium [Moles/Vol] 134 mmol/L Critically low 136-145 [facility] Comment on above: Performed By: #### C BC #### [facility] [address] [address] [address] Anthony Bonilla Urea nitrogen [Mass/Vol] 33.0 mg/dL Critically high 7.0-18.0 [facility] Comment on above: Performed By: #### C BC #### [facility] [address] [address] [address] Anthony Bonilla Urea nitrogen/Creatinine [Mass ratio] 26.4 mg/mg Normal [facility] Comment on above: Performed By: #### C BC #### [facility] [address] [address] [address] Anthony Bonilla PROTIMEon 11-01-2021 INR Coag (PPP) [Relative time] 0.97 {INR} Normal [facility] Comment on above: Performed By: #### U RCX #### [facility] [address] [address] [address] Anthony Bonilla INR GUIDELINES SEE BELOW Normal [facility] Comment on above: Result Comment: MEGAN RED INR: 2.0 - 3.0 CONDITIONS NOT LISTED BELOW 2.5 - 3.5 FOR PROSTHETIC HEART VALVE REPLACEMENT 2.5 - 3.5 RECURRENT THROMBOSIS Performed By: #### U RCX #### [facility] [address] [place] [address] Dr. Anthony Bonilla PT Coag (PPP) [Time] 10.5 s Normal 9.0-11.6 [facility] Comment on above: Performed By: #### U RCX #### [facility] [address] [place] [address] Dr. Anthony Bonilla PTTon 11-01-2021 aPTT Coag (Bld) [Time] 27.8 s Normal 22.3-36.2 [facility] Comment on above: Performed By: #### U RCX #### [facility] [address] [place] [address] Dr. Anthony Bonilla TSHon 11-01-2021 TSH 1.011 uIU/mL Normal 0.358-3.74 0 [facility] Comment on above: Performed By: #### C BC #### [facility] [address] [place] [address] Dr. Anthony Bonilla URINE MICROSCOPIC ONLYon BACTERIA LARGE Abnormal NONE SEEN [facility] Comment on above: Performed By: #### U RCX #### [facility] [address] [place] [address] Dr. Anthony Bonilla Bacteria identified Cx Nom (U) INDICATED Normal [facility] Comment on above: Performed By: #### U RCX #### [facility] [address] [place] [address] Dr. Anthony Bonilla CAST NONE SEEN Normal NONE SEEN [facility] Comment on above: Performed By: #### U RCX #### [facility] [address] [place] [address] Dr. Anthony Bonilla Crystals LM Nom (Urine sed) NONE SEEN Normal NONE SEEN [facility] Comment on above: Performed By: #### U RCX #### [facility] [address] [place] [address] Dr. Anthony Bonilla Epithelial cells LM Ql (Urine sed) FEW Abnormal NONE SEEN /RARE [facility] Comment on above: Performed By: #### U RCX #### [facility] [address] [place] [address] Dr. Antohny Bonilla MUCOUS NONE SEEN Normal NONE SEEN [facility] Comment on above: Performed By: #### U RCX #### [facility] [address] [place] [address] Dr. Anthony Bonilla RBC 2-5 Abnormal 0-2 [facility] Comment on above: Performed By: #### U RCX #### [facility] [address] [place] [address] Dr. Anthony Bonilla WBC 0-2 Abnormal NONE SEEN [facility] Comment on above: Performed By: #### U RCX #### [facility] [address] [place] [address] Dr. Anthony Bonilla Covid-19 PCR (CVDTBH)on SARS-CoV-2 [...] for this test is supported by the [place] of Health and Human Service's declaration that [...] [facility] [address] [place] [address] Dr. Anthony Bonilla Covid-19 PCR (CVDTBH)on SARS-CoV-2 [...] for this test is supported by the [employer] Inspector of Health and Human Service's (HHS's) declaration [...] [facility] [address] [place] [address] Dr. 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 Any time this information is not complete, it is the culinary director?s responsibility to query the physician. Based on [...] timely attention to this matter. Ambar Manley Passport Support Associate Ext [phone] [Electronically Signed on: 10/18/2019 21:40 EDT] Mi Licea DO [Verified on: 10/18/2019 21:40 EDT] Mi Licea DO [Transcribed on: 10/02/2019 11:06 EDT] [facility] Consent Formson 09-29-2019 Consent Forms [id number]#1.00OTGTI FF [facility] Medication Managementon 09-09 Medication Management [id number]#1.00OTGTI [facility] Outside Recordson 09-29-2019 Outside Records [id number]#1.00OTGTI [facility] Outside Records [id number][facility]erson 09-29-2019 Provider Orders [id number]#[facility] Telemetry Stripson 0 Telemetry Strips [id number]#[facility] .Auto Diff 1on 2019 Auto [place] % 11 % Normal -12 [facility] Comment on above: Performed By: #### 1 [id number], [id number], [id number] #### [facility] (DEFAULT) [address] [place] [address] 20907 Baso Abs# 0.0 x10 Normal 0.0-0.2 [facility] Comment on above: Performed By: #### 1 [id number], [id number], [id number] #### [facility] (DEFAULT) [address] [place] [address] 86681 Basophils/100 WBC (Bld) 0.1 % Low 0.2-2.0 [facility] Comment on above: Performed By: #### 1 [id number], [id number], [id number] #### [facility] (DEFAULT) [address] [place] [address] 58690 Eos Abs# 0.2 x10 Normal 0.0-0.4 [facility] Comment on above: Performed By: #### 1 [id number], [id number], 6674040 #### [facility] (DEFAULT) [address] [place] [address] 33558 Eosinophils/100 WBC (Bld) 2.2 % Normal 0.9-4.0 [facility] Comment on above: Performed By: #### 1 [id number], 70432985, 2193691 #### [facility] (DEFAULT) [address] [place] [address] Lymphocytes (Bld) [#/Vol] 0.6 x10 Low 1.3-2.9 [facility] Comment on above: Performed By: #### 1 [id number], [id number], 2417622 #### [facility] (DEFAULT) [address] [place] [address] Lymphocytes/100 WBC (Bld) 6 % Low 14-48 [facility] Comment on above: Performed By: #### 1 [id number], 80907306, 9171526 #### [facility] (DEFAULT) [address] [place] [address] Talbot Abs# 1.0 x10 High 0.0-0.8 [facility] Comment on above: Performed By: #### 1 [id number], [id number], [id number] #### [facility] (DEFAULT) [address] [place] [address] Neut Abs# 7.2 x10 Normal 1.5-9.2 [facility] Comment on above: Performed By: #### 1 [id number], 84180810, 1578473 #### [facility] (DEFAULT) [address] [place] [address] Neutrophils/100 WBC (Bld) 80 % Normal 44-88 [facility] Comment on above: Performed By: #### 1 [id number], 55167871, 8424156 #### [facility] (DEFAULT) [address] [place] [address] CBC w/ Auto Diffon 202 0 Erythrocyte distribution width (RBC) [Ratio] 14.4 % Normal 11.5-15.0 [facility] Comment on above: Performed By: #### 1 [id number], [id number], 1967943 #### [facility] (DEFAULT) [address] [place] [address] Hematocrit (Bld) [Volume fraction] 36.2 % Normal 33.7-40.4 [facility] Comment on above: Performed By: #### 1 [id number], 19349803, 8810662 #### [facility] (DEFAULT) [address] [place] [address] 50344 Hemoglobin (Bld) [Mass/Vol] 11.9 g/dL Normal 11.3-15.9 [facility] Comment on above: Performed By: #### 1 [id number], 09186981, 6122460 #### [facility] (DEFAULT) [address] [place] [address] 04498 Man Diff? Auto Normal [facility] Comment on above: Performed By: #### 1 [id number], 32143542, 2836852 #### [facility] (DEFAULT) [address] [place] [address] 55702 MCH (RBC) [Entitic mass] 33 pg Normal 24-34 [facility] Comment on above: Performed By: #### 1 [id number], 22483355, 9925625 #### [facility] (DEFAULT) [address] [place] [address] 44775 MCHC (RBC) [Mass/Vol] 33 g/dL Normal 26-37 [facility] Comment on above: Performed By: #### 1 [id number], 06597989, 2840147 #### [facility] (DEFAULT) [address] [place] [address] 66898 MCV (RBC) [Entitic vol] 100 fL Normal 81-100 [facility] Comment on above: Performed By: #### 1 [id number], 23753923, 1402288 #### [facility] (DEFAULT) [address] [place] [address] 47566 Platelet mean volume (Bld) [Entitic vol] 9.6 fL Normal 6.3-10.2 [facility] Comment on above: Performed By: #### 1 [id number], 76821332, 8893823 #### [facility] (DEFAULT) [address] [place] [address] 20115 Platelets (Bld) [#/Vol] 286 x10 Normal 138-427 [facility] Comment on above: Performed By: #### 1 [id number], 63075961, 9176016 #### [facility] (DEFAULT) [address] [place] [address] RBC (Bld) [#/Vol] 3.61 x10 Low 3.70-5.30 [facility] Comment on above: Performed By: #### 1 [id number], 53682897, 1139764 #### [facility] (DEFAULT) [address] [place] [address] 51845 WBC (Bld) [#/Vol] 9.0 x10 [facility] Comment on above: Performed By: #### 1 [id number], 93230984, 9336009 #### [facility] (DEFAULT) [address] [place] [address] 29935 Education Noteon 2019 Education Note Education Materials [...] done to rule of a DVT. Normal [facility] Extra Greenon [address] [facility] Comment on above: Performed By: #### 1 [id number], 21459743, 2958057 #### [facility] (DEFAULT) [address] [place] [address] 13534 Inpatient Patient Summaryon 2019 Inpatient Patient Summary [address] [address] Patient Discharge Instructions Name: VINCENT HSU : 1935 Patient Address: [address] [place] [address] Primary Care Provider: Name: Gypsy Mcmahon MD After you are discharged if you find you have any questions, please, call [phone] ext [phone] to speak to a nurse. Discharge Diagnosis: Primary localized osteoarthritis of left hip Prescription Information: If you have been given a prescription for narcotics, seek immediate medical attention if you have any difficulty breathing or any sudden status changes such as confusion and sleepiness. If you or anyone you know is experiencing suicidal thoughts, mental health, alcohol and/or drug addiction problems; contact the [facility] 31/08 Crisis Hotline -Text 4HMKS to 930175. If you received any narcotics, sedation, or [...] business decisions or sign any legal documents [facility] would like to thank you for allowing us to assist you with your healthcare needs. The following includes patient education materials and information regarding your injury/illness. HSU VINCENT Evangelista has been given the following list of follow-up instructions, prescriptions, and patient education materials: Follow-up Instructions With: Address: When: Mi Licea [address] [place] [address] [address] [place] [address] Business (2) 10/03/2019 8:30 AM With: Address: When: Gypsy Mcmahon [address] [place] [address] [place] [address] Business (1) Medications During the [...] for Disease Control and Prevention October 2013 [facility] Progress Note - Nurseon 09-09 [facility] Pt. [facility] to bed times [...] on: 2019 11:52 EDT] Pan Regalado RN [facility] Progress Note - Nurse Pt. reports interm ittent left upper inner thigh grabbing pain. Pt. moans during these episodes. Tramadol given. Pt. repostioned for comfort. No change in the muscle spasms. Dr. Chacko informed in person. No orders received. [Electronically Signed on: 2019 09:32 EDT] Pan Regalado RN [Verified on: 2019 09:32 EDT] Pan Regalado RN [facility] Progress Note-Physicianon Progress Note-Physician DATE [...] PROGNOSIS: Good. Devorah Redd DO JOB #: [id number] [Electronically Signed on: 2019 13:04 EDT] DEVORAH REDD DO [Verified on: 2019 13:04 EDT] DEVORAH REDD DO [Transcribed on: 2019 11:05 EDT] GDU Normal [facility] .Auto Diff 1on 09-27-2019 Auto Talbot % 9 % Normal 1-12 [facility] Comment on above: Performed By: #### 1 [id number], [id number], 6129570 #### [facility] (DEFAULT) [address] [place] [address] 10669 Baso Abs# 0.0 x10 Normal 0.0-0.2 [facility] Comment on above: Performed By: #### 1 [id number], [id number], 7318557 #### [facility] (DEFAULT) [address] [place] [address] 42878 Basophils/100 WBC (Bld) 0.1 % Low 0.2-2.0 [facility] Comment on above: Performed By: #### 1 [id number], 40165966, 1949116 #### [facility] (DEFAULT) [address] [place] [address] 19752 Eos Abs# 0.2 x10 Normal 0.0-0.4 [facility] Comment on above: Performed By: #### 1 [id number], 86036777, 2840306 #### [facility] (DEFAULT) [address] [place] [address] 50272 Eosinophils/100 WBC (Bld) 1.6 % Normal 0.9-4.0 [facility] Comment on above: Performed By: #### 1 [id number], 45097239, 6873041 #### [facility] (DEFAULT) [address] [place] [address] 74921 Lymphocytes (Bld) [#/Vol] 0.5 x10 Low 1.3-2.9 [facility] Comment on above: Performed By: #### 1 [id number], 70275592, 4880937 #### [facility] (DEFAULT) [address] [place] [address] 82964 Lymphocytes/100 WBC (Bld) 4 % Low 14-48 [facility] Comment on above: Performed By: #### 1 [id number], 56184310, 1599560 #### [facility] (DEFAULT) [address] [place] [address] 67894 Talbot Abs# 1.2 x10 High 0.0-0.8 [facility] Comment on above: Performed By: #### 1 [id number], 90015410, 4228127 #### [facility] (DEFAULT) [address] [place] [address] 31258 Neut Abs# 11.5 x10 High 1.5-9.2 [facility] Comment on above: Performed By: #### 1 [id number], 50690102, 3079727 #### [facility] (DEFAULT) [address] [place] [address] 80686 Neutrophils/100 WBC (Bld) 86 % Normal 44-88 [facility] Comment on above: Performed By: #### 1 [id number], 68188833, 3670866 #### [facility] (DEFAULT) [address] [place] [address] C Urineon 09-27-2019 C Urine Urine Culture [...] <=4 Verified Tri/Sulf S <=2/[address] [facility] Comment on above: Performed By: #### 7 [id number], [id number], [id number] #### [facility] (DEFAULT) [address] [place] [address] CBC w/ Auto Diffon 0 Erythrocyte distribution width (RBC) [Ratio] 14.5 % Normal 11.5-15.0 [facility] Comment on above: Performed By: #### 1 [id number], 71770112, 1973093 #### [facility] (DEFAULT) [address] [place] [address] Hematocrit (Bld) [Volume fraction] 39.2 % Normal 33.7-40.4 [facility] Comment on above: Performed By: #### 1 [id number], 21548113, 9868582 #### [facility] (DEFAULT) [address] [place] [address] Hemoglobin (Bld) [Mass/Vol] 12.8 g/dL Normal 11.3-15.9 [facility] Comment on above: Performed By: #### 1 [id number], 37874568, 1053595 #### [facility] (DEFAULT) [address] [place] [address] 61814 Man Diff? Auto Normal [facility] Comment on above: Performed By: #### 1 [id number], 95609159, 2355735 #### [facility] (DEFAULT) [address] [place] [address] 65648 MCH (RBC) [Entitic mass] 33 pg Normal 24-34 [facility] Comment on above: Performed By: #### 1 [id number], 08380627, 3722252 #### [facility] (DEFAULT) [address] [place] [address] 17797 MCHC (RBC) [Mass/Vol] 33 g/dL Normal 26-37 [facility] Comment on above: Performed By: #### 1 [id number], 29972040, 6006205 #### [facility] (DEFAULT) [address] [place] [address] MCV (RBC) [Entitic vol] 101 fL High 81-100 [facility] Comment on above: Performed By: #### 1 [id number], 63648693, 1626418 #### [facility] (DEFAULT) [address] [place] [address] 73216 Platelet mean volume (Bld) [Entitic vol] 9.8 fL Normal 6.3-10.2 [facility] Comment on above: Performed By: #### 1 [id number], 56542752, 5946319 #### [facility] (DEFAULT) [address] [place] [address] 50902 Platelets (Bld) [#/Vol] 266 x10 Normal 138-427 [facility] Comment on above: Performed By: #### 1 [id number], [id number], [id number] #### [facility] (DEFAULT) [address] [place] [address] 27047 RBC (Bld) [#/Vol] 3.89 x10 Normal 3.70-5.30 [facility] Comment on above: Performed By: #### 1 [id number], 63536942, 4271584 #### [facility] (DEFAULT) [address] [place] [address] WBC (Bld) [#/Vol] 13.4 x10 [facility] Comment on above: Result Comment: Slid e Reviewed Performed By: #### 1 [id number], [id number], [id number] #### [facility] (DEFAULT) [address] [place] [address] Coding Summaryon 09-27-2019 Coding Summary CODING DATE: 020 FINAL [facility] STATUS: Home PAYOR: Medicare ADMIT DX: REASON [...] Marisela Lawrence Date Saved: 09/27/2019 11:11 am [facility] Extra Greenon 09-27-[address] [facility] Comment on above: Performed By: #### 1 [id number], [id number], [id number] #### [facility] (DEFAULT) [address] [place] [address] 57650 Nutrition Noteon 09-27-2019 Nutrition Note Pt eating poorly, av g less than 30% of meals per intake records. Supplements also taken sporadically. Suspect pain and constipation may be playing a role. No new wts. Last BM 09/23. Possible discharge later today. Will continue to follow and monitor need to adjust supplements ie. offer to make into a milkshake, [facility] Pharmacy Noteon 09-27-2019 Pharmacy Note [...] [Verified on: 09/27/2019 14:01 EDT] Virgie Santos [facility] Progress Note - Nurseon 08- Progress Note - Nurse 1800 one dulcolax suppository administered, will continue to monitor. [Electronically Signed on: 09/27/2019 18:03 EDT] Luli Mclain RN [Verified on: 09/27/2019 18:03 EDT] Luli Mclain RN [facility] Progress Note - Nurse 1710 tramadol 50mg po administered for #10 left upper thigh pain , will continue to monitor. [Electronically Signed on: 09/27/2019 17:09 EDT] Luli Mclain RN [Verified on: 09/27/2019 17:09 EDT] Luli Mclain RN [facility] Progress Note-Physicianon Progress Note-Physician DATE [...] PROGNOSIS: Good. Devorah Redd DO JOB #: [id number] [Electronically Signed on: 2019 10:28 EDT] DEVORAH REDD DO [Verified on: 2019 10:28 EDT] DEVORAH REDD DO [Transcribed on: 09/27/2019 13:52 EDT] [facility] .Auto Diff 09-26-2019 Auto Talbot % 9 % Normal 1-12 [facility] Comment on above: Performed By: #### 1 [id number], [id number], [id number] #### [facility] (DEFAULT) [address] [place] [address] Baso Abs# 0.0 x10 Normal 0.0-0.2 [facility] Comment on above: Performed By: #### 1 [id number], 68399526, [id number] #### [facility] (DEFAULT) [address] [place] [address] Basophils/100 WBC (Bld) 0.1 % Low 0.2-2.0 [facility] Comment on above: Performed By: #### 1 [id number], 05093378, 6355470 #### [facility] (DEFAULT) [address] [place] [address] Eos Abs# 0.2 x10 Normal 0.0-0.4 [facility] Comment on above: Performed By: #### 1 [id number], 87855773, 8502006 #### [facility] (DEFAULT) [address] [place] [address] 98595 Eosinophils/100 WBC (Bld) 2.0 % Normal 0.9-4.0 [facility] Comment on above: Performed By: #### 1 [id number], 66781526, 5949760 #### [facility] (DEFAULT) [address] [place] [address] 51539 Lymphocytes (Bld) [#/Vol] 0.6 x10 Low 1.3-2.9 [facility] Comment on above: Performed By: #### 1 [id number], 34364951, 8504274 #### [facility] (DEFAULT) [address] [place] [address] 25508 Lymphocytes/100 WBC (Bld) 6 % Low 14-48 [facility] Comment on above: Performed By: #### 1 [id number], 10506080, 5331706 #### [facility] (DEFAULT) [address] [place] [address] Talbot Abs# 0.9 x10 High 0.0-0.8 [facility] Comment on above: Performed By: #### 1 [id number], 52851219, 1707047 #### [facility] (DEFAULT) [address] [place] [address] Neut Abs# 8.3 x10 Normal 1.5-9.2 [facility] Comment on above: Performed By: #### 1 [id number], 11699675, 6117064 #### [facility] (DEFAULT) [address] [place] [address] Neutrophils/100 WBC (Bld) 83 % Normal 44-88 [facility] Comment on above: Performed By: #### 1 [id number], 02768959, 3853084 #### [facility] (DEFAULT) [address] [place] [address] Standardon 09-26-2019 eGFR Non AA 48 mL/min/1.73m2 [facility] Comment on above: Performed By: #### 1 [id number], 70024639, 6984349 #### [facility] (DEFAULT) [address] [place] [address] eGFR AA 58 mL/min/1.73m2 [facility] Comment on above: Result Comment: Configuration Manager kody Kidney disease could be indicated at eGFRs of less than 60 ml/min/1.73m2. Kidney Failure is indicated at less than 15 ml/min/1.73m2 Performed By: #### 1 [id number], 80971406, 4075586 #### [facility] (DEFAULT) [address] [place] [address] 78510 Anion gap [Moles/Vol] 10.0 mmol/L Normal 5.0-19.0 [facility] Comment on above: Performed By: #### 1 [id number], 56867746, 1587954 #### [facility] (DEFAULT) [address] [place] [address] 87172 Calcium [Mass/Vol] 8.8 mg/dL Low 8.9-10.[address] [facility] Comment on above: Performed By: #### 1 [id number], 84034937, 6884363 #### [facility] (DEFAULT) [address] [place] [address] 46473 Chloride [Moles/Vol] 103 mmol/L Normal 101-111 [facility] Comment on above: Performed By: #### 1 [id number], 06325158, 6803073 #### [facility] (DEFAULT) [address] [place] [address] 98510 CO2 [Moles/Vol] 28 mmol/L Normal 21-32 [facility] Comment on above: Performed By: #### 1 [id number], 08204188, 5055641 #### [facility] (DEFAULT) [address] [place] [address] 66317 Creatinine [Mass/Vol] 1.09 mg/dL Normal 0.60-1.30 [facility] Comment on above: Performed By: #### 1 [id number], 25321717, 4487620 #### [facility] (DEFAULT) [address] [place] [address] 51821 Glucose [Mass/Vol] 94.0 mg/dL Normal 74.0-118.[address] [facility] Comment on above: Performed By: #### 1 [id number], 41790902, 6286704 #### [facility] (DEFAULT) [address] [place] [address] 64753 Osmolality [Osmolality] 276 mOsm/L [facility] Comment on above: Performed By: #### 1 [id number], 72805950, 1059193 #### [facility] (DEFAULT) [address] [place] [address] 93852 Potassium [Moles/Vol] 4.4 mmol/L Normal 3.6-5.1 [facility] Comment on above: Performed By: #### 1 [id number], 14256595, 7855909 #### [facility] (DEFAULT) [address] [place] [address] 40622 Sodium [Moles/Vol] 137.0 mmol/L Normal 136.0-[address] [facility] Comment on above: Performed By: #### 1 [id number], 73212554, 2244026 #### [facility] (DEFAULT) [address] [place] [address] 53912 Urea nitrogen [Mass/Vol] 19 mg/dL Normal 8-26 [facility] Comment on above: Performed By: #### 1 [id number], 59671830, 0924237 #### [facility] (DEFAULT) [address] [place] [address] 08740 Urea nitrogen/Creatinine [Mass ratio] 17.0 mg/mg High 4.6-16.2 [facility] Comment on above: Performed By: #### 1 [id number], 35031536, 7611400 #### [facility] (DEFAULT) [address] [place] [address] 83464 CBC w/ Auto Diffon 0 Erythrocyte distribution width (RBC) [Ratio] 14.4 % Normal 11.5-15.0 [facility] Comment on above: Performed By: #### 1 [id number], 02978712, 1432106 #### [facility] (DEFAULT) [address] [place] [address] Hematocrit (Bld) [Volume fraction] 35.5 % Normal 33.7-40.4 [facility] Comment on above: Performed By: #### 1 [id number], 39498181, 8123487 #### [facility] (DEFAULT) [address] [place] [address] 57491 Hemoglobin (Bld) [Mass/Vol] 11.6 g/dL Normal 11.3-15.9 [facility] Comment on above: Performed By: #### 1 [id number], 16051899, 9567063 #### [facility] (DEFAULT) [address] [place] [address] 35079 Man Diff? Auto Normal [facility] Comment on above: Performed By: #### 1 [id number], 37092727, 8160410 #### [facility] (DEFAULT) [address] [place] [address] 32661 MCH (RBC) [Entitic mass] 33 pg Normal 24-34 [facility] Comment on above: Performed By: #### 1 [id number], 03917154, 8459145 #### [facility] (DEFAULT) [address] [place] [address] 55266 MCHC (RBC) [Mass/Vol] 33 g/dL Normal 26-37 [facility] Comment on above: Performed By: #### 1 [id number], 36171015, 7797851 #### [facility] (DEFAULT) [address] [place] [address] MCV (RBC) [Entitic vol] 102 fL High 81-100 [facility] Comment on above: Performed By: #### 1 [id number], 79558915, 8491116 #### [facility] (DEFAULT) [address] [place] [address] Platelet mean volume (Bld) [Entitic vol] 9.8 fL Normal 6.3-10.2 [facility] Comment on above: Performed By: #### 1 [id number], 04257090, 8891787 #### [facility] (DEFAULT) [address] [place] [address] Platelets (Bld) [#/Vol] 236 x10 Normal 138-427 [facility] Comment on above: Performed By: #### 1 [id number], 13960227, 3627374 #### [facility] (DEFAULT) [address] [place] [address] 86415 RBC (Bld) [#/Vol] 3.49 x10 Low 3.70-5.30 [facility] Comment on above: Performed By: #### 1 [id number], 29879996, 5376505 #### [facility] (DEFAULT) [address] [place] [address] 86394 WBC (Bld) [#/Vol] 10.0 x10 [facility] Comment on above: Performed By: #### 1 [id number], 97199956, 2374861 #### [facility] (DEFAULT) [address] [place] [address] Consent Formson 09-26-2019 Consent Forms [id number] FF [facility] Consultation/Specialist Note on 09-26-2019 Consultation/Specialis [...] [Verified on: 09/26/2019 07:35 EDT] RIDDHISUDHEER HOLLOWAY [facility] Progress Note - Nurseon 09-08 [...] on: 09/26/2019 07:45 EDT] Twila Cruz RN [facility] .Auto Diff 1on 09-25-2019 Auto Talbot % 8 % Normal -12 [facility] Comment on above: Performed By: #### 1 [id number], 14762835, 1112064 #### [facility] (DEFAULT) [address] [place] [address] 29017 Baso Abs# 0.0 x10 Normal 0.0-0.2 [facility] Comment on above: Performed By: #### 1 [id number], 26494912, 2038977 #### [facility] (DEFAULT) [address] [place] [address] 80281 Basophils/100 WBC (Bld) 0.2 % Normal 0.2-2.0 [facility] Comment on above: Performed By: #### 1 [id number], 46165718, 5527308 #### [facility] (DEFAULT) [address] [place] [address] 17565 Eos Abs# 0.1 x10 Normal 0.0-0.4 [facility] Comment on above: Performed By: #### 1 [id number], 29241719, 1083591 #### [facility] (DEFAULT) [address] [place] [address] 30572 Eosinophils/100 WBC (Bld) 0.5 % Low 0.9-4.0 [facility] Comment on above: Performed By: #### 1 [id number], 34230279, 2013724 #### [facility] (DEFAULT) [address] [place] [address] 65253 Lymphocytes (Bld) [#/Vol] 1.1 x10 Low 1.3-2.9 [facility] Comment on above: Performed By: #### 1 [id number], 41460448, 5069621 #### [facility] (DEFAULT) [address] [place] [address] 88009 Lymphocytes/100 WBC (Bld) 9 % Low 14-48 [facility] Comment on above: Performed By: #### 1 [id number], 87158220, 4030280 #### [facility] (DEFAULT) [address] [place] [address] 28975 Talbot Abs# 1.0 x10 High 0.0-0.8 [facility] Comment on above: Performed By: #### 1 [id number], 15029985, 1095152 #### [facility] (DEFAULT) [address] [place] [address] 79143 Neut Abs# 9.6 x10 High 1.5-9.2 [facility] Comment on above: Performed By: #### 1 990496261, 36877673, 4092344 #### [facility] (DEFAULT) [address] [place] [address] 80055 Neutrophils/100 WBC (Bld) 82 % Normal 44-88 [facility] Comment on above: Performed By: #### 1 [id number], 70107760, 5601525 #### [facility] (DEFAULT) [address] [place] [address] 18261 ABORhon 09-25-2019 ABO and Rh group Nom (Bld) Hx Check: Not Found Anti-A: 4+ Anti-B: 0 Anti-D: 4+ DCon: NT A1: 0 B: 4+ ABORh Interp: A POS [facility] Comment on above: Performed By: #### 7 [id number], 15828974, [id number] #### [facility] (DEFAULT) [address] [place] [address] 42297 ABORh Retypeon 09-25-2019 ABO and Rh group Nom (Bld) Ordered by Discern. Anti-A: 4+ Anti-B: 0 Anti-D: 4+ DCon: NT A1: 0 B: 4+ ABORh Retype: A [facility] Comment on above: Performed By: #### 7 [id number], 28286921, [id number] #### [facility] (DEFAULT) [address] [place] [address] 09594 ABSC Gelon 09-25-[address] Normal [facility] Comment on above: Performed By: #### 7 [id number], 75878194, [id number] #### [facility] (DEFAULT) [address] [place] [address] 09060 Anesthesia Noteon 09-25-2019 Anesthesia Note Patient: DONTAE [...] risk of pressure sore / SNOMED CT 085202147 / Confirmed CAD (coronary artery disease) / SNOMED CT 84906212 / Confirmed Hyperlipidemia / SNOMED CT 92836966 / Confirmed Hypertension / SNOMED CT 6450854403 / Confirmed Skin cancer / SNOMED CT 9427234038 / Confirmed Osteoporosis / SNOMED CT 629912181 / Confirmed Restless leg syndrome / SNOMED CT 01001790 / Confirmed Resolved: GERD (gastroesophageal reflux disease) / SNOMED CT 806325205 Histories Family History: Cancer Sister Brother Aneurysm Mother CHF - Congestive heart failure Father MO (myocardial infarction) Sister Procedure history: Umbilical hernia (7146646136). Arthroscopy (46655694). Comments: 08/29/2019 12:57 Dionne Mccarty RN arthroscopy of knee Cholecystectomy (64166548). Hysterectomy (649588463). Cataract (930427004). Shoulder (51018341). Comments: 08/29/2019 12:58 EDT - Dionne Yun RN arthroscopy CABG (Coronary artery bypass grafting) planned (707602369). Colonoscopy (848434945). EGD - Esophagogastroduodenoscop y (6961671493). Meniscectomy (497808723). Hip arthroplasty (331728803). Social History Electronic Cigarette/Vaping Assessment Electronic Cigarette [...] 09/25/2019 10:10 EDT] Enrike Mora MD Normal [facility] Blood Bank IDon 09-25-2019 Blood Bank ID BBID: [id number] [facility] Comment on above: Performed By: #### 7 [id number], 50377154, [id number] #### [facility] (DEFAULT) [address] [place] [address] 98050 CBC w/ Auto Diffon 0 Erythrocyte distribution width (RBC) [Ratio] 14.4 % Normal 11.5-15.0 [facility] Comment on above: Performed By: #### 1 417229059, 80270651, 8188519 #### [facility] (DEFAULT) [address] [place] [address] 01684 Hematocrit (Bld) [Volume fraction] 39.2 % Normal 33.7-40.4 [facility] Comment on above: Performed By: #### 1 386544706, 50299103, 7732256 #### [facility] (DEFAULT) [address] [place] [address] 12387 Hemoglobin (Bld) [Mass/Vol] 12.8 g/dL Normal 11.3-15.9 [facility] Comment on above: Performed By: #### 1 667370645, 53362787, 1626205 #### [facility] (DEFAULT) [address] [place] [address] 11906 Man Diff? Auto Normal [facility] Comment on above: Performed By: #### 1 [id number], 62036445, 3820224 #### [facility] (DEFAULT) [address] [place] [address] 77420 MCH (RBC) [Entitic mass] 33 pg Normal 24-34 [facility] Comment on above: Performed By: #### 1 485100927, 01696610, 5605431 #### [facility] (DEFAULT) [address] [place] [address] 69005 MCHC (RBC) [Mass/Vol] 33 g/dL Normal 26-37 [facility] Comment on above: Performed By: #### 1 664482729, 83672673, 7983020 #### [facility] (DEFAULT) [address] [place] [address] 87756 MCV (RBC) [Entitic vol] 102 fL High 81-100 [facility] Comment on above: Performed By: #### 1 635202209, 20080341, 6986428 #### [facility] (DEFAULT) [address] [place] [address] 05619 Platelet mean volume (Bld) [Entitic vol] 9.4 fL Normal 6.3-10.2 [facility] Comment on above: Performed By: #### 1 114815250, 82136985, 7186861 #### [facility] (DEFAULT) [address] [place] [address] 17273 Platelets (Bld) [#/Vol] 272 x10 Normal 138-427 [facility] Comment on above: Performed By: #### 1 334661150, 72796413, 4875920 #### [facility] (DEFAULT) [address] [place] [address] 05636 RBC (Bld) [#/Vol] 3.85 x10 Normal 3.70-5.30 [facility] Comment on above: Performed By: #### 1 077647235, 20620503, 2090623 #### [facility] (DEFAULT) [address] [place] [address] 08119 WBC (Bld) [#/Vol] 11.7 x10 High 3.5-10.5 [facility] Comment on above: Performed By: #### 1 [id number], 85046367, 4910566 #### [facility] (DEFAULT) [address] [place] [address] 13324 Extra Chauncey 09-25-[address] [facility] Comment on above: Performed By: #### 7 948360, 76051188, [id number] #### [facility] (DEFAULT) [address] [place] [address] 73043 H&Hon 09-25-2019 Hematocrit (Bld) [Volume fraction] 39.9 % Normal 33.7-40.4 [facility] Comment on above: Performed By: #### 7 440340, 80925412, [id number] #### [facility] (DEFAULT) [address] [place] [address] 24204 Hemoglobin (Bld) [Mass/Vol] 12.7 g/dL Normal 11.3-15.9 [facility] Comment on above: Performed By: #### 7 [id number], 80566513, [id number] #### [facility] (DEFAULT) [address] [place] [address] History and Physicalon 09-24 History and Physical [id number] FF Normal [facility] MAGR Intraoperative Recordon 09-25-2019 MAGR Intraoperative Record MAGR Intra-Op Record Summary Primary Physician: Mi Licea DO Finalized Date/Time: 09/25/19 15:04:11 Pt. Name: VINCENT HSU Jean Carlos Cha/Sex: 1935 FEMALE Med Rec #: [id number] Physician: Mi Licea DO Financial #: [id number] Pt. Type: I Room/Bed: [facility] Admit/Disch: 09/25/19 06:52:00 - Institution: Case [...] Role Performed Surgeon - Primary Anesthesiologist of Gas Plant Dispatcher Record Time In 09/25/19 09:37:00 09/25/19 09:37:00 09/25/19 09:37:00 Time Out 09/25/19 11:50:00 09/25/19 11:50:00 09/25/19 11:50:00 Procedure Arthroplasty Total Arthroplasty Total Arthroplasty Total Hip(Left) Hip(Left) Hip(Left) Last Modified By: Marj Sullivan RN, Stephanie RN Sauer, Stephanie RN 09/25/19 12:54:58 09/25/19 12:54:58 09/25/19 12:54:58 Entry 4 Entry 5 Entry 6 Case Attendee Montrell MCKEON, Shantal Moreira Leigh-Ann CST Role Performed Scrub Personnel Sole Seamer Sole Seamer Time In 09/25/19 09:37:00 09/25/19 09:37:00 09/25/19 [...] 50MM 6.5 X 30MM 6.5 X 15MM 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 DEPUY DEPUY DEPUY Catalog # Lot Number [id number] Expiration Date 05/08/24 03/10/29 01/07/29 Serial Number [id number] REF 1217-30-500 REF 1217-15-500 Device Identifier Human Readable EDDA Machine Readable EDDA MR Class Implant Usage Data Site Hip L Hip L Hip L Quantity 1 1 1 Reason for Explant Reason Not Retained Explant Disposition Ct Scan Tech Sterility External Indicator Result Internal Indicator Results [...] BOYD Size 6.5 X 15MM 50MM PS 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 DEPUY DEPUY DEPUY Catalog # Lot Number [id number] Expiration Date 11/07/28 04/07/29 04/07/29 Serial Number REF 1217-15-500 REF [id number] REF 1246-03-000 Device Identifier Human Readable EDDA Machine Readable EDDA MR Class Implant Usage Data Site Hip L Hip L Hip L Quantity 1 1 1 Reason for Explant Reason Not Retained Explant Disposition Ct Scan Tech Sterility External Indicator Result Internal Indicator Results [...] SHORT NECK COLLAR 01/21 TAPER SIZE 11 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 DEPUY DEPUY Catalog # Lot Number [id number] Expiration Date 02/08/24 02/08/24 Serial Number REF [id number] REF 1365-22-000 Device Identifier Human Readable EDDA Machine Readable EDDA MR Class Implant Usage Data Site Hip L Hip L Quantity 1 1 Reason for Explant Reason Not Retained Explant Disposition Ct Scan Tech Sterility External Indicator Result Internal Indicator Results [...] Unfinalizing 09/25/19 15:04 MHFRANCISCO Modify Pick List [facility] MAGR PACU Recordon 0 MAGR PACU Record MAGR PACU Record Sum vincent Primary Physician: Mi Licea DO Finalized Date/Time: 09/25/19 12:53:39 Pt. Name: VINCENT HSU/Sex: 1935 FEMALE Med Rec #: [id number] Physician: Mi Licea DO Financial #: [id number] Pt. Type: I Room/Bed: [facility] Admit/Disch: 09/25/19 06:52:00 - Institution: PACU Case Times MAGR Entry 1 In PACU I 09/25/19 11:50:00 Discharge from PACU 09/25/19 12:40:00 I Last Modified By: Dionne Yun RN 09/25/19 12:53:35 Finalized By: Dionne Yun RN Document Signatures Signed By: Dionne Yun RN 09/25/19 12:53 [facility] MAGR Preoperative Recordon 0 09-25-2019 MAGR Preoperative Record MAGR Pre-Op Record Summary Primary Physician: Mi Licea DO Finalized Date/Time: 09/25/19 11:58:52 Pt. Name: VINCENT HSU/Sex: 1935 FEMALE Med Rec #: [id number] Physician: Mi Licea DO Financial #: [id number] Pt. Type: I Room/Bed: 221/1 Admit/Disch: 09/25/19 [...] Signed By: Dionne Yun RN 09/25/19 11:58 [facility] Nutrition Noteon 09-25-2019 Nutrition Note Pt admitted for sche duled Lt total hip sx; placed on a Regular diet as tolerated w/ post op supplements BID along w/ usual vitamin/mineral supplementation. Nutritional supplements adjusted to what's available in house. 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 Performed By: #### 7 [id number], [id number], [id number] #### [facility] (DEFAULT) [address] [place] [address] UA Bacteria 4+ [facility] Comment on above: Order Comment: Urina lysis Microscopic order added on by [employer] Expert Rules system. Performed By: #### 7 [id number], [id number], [id number] #### [facility] (DEFAULT) [address] [place] [address] 42811 UA Squam Epi Rare [facility] Comment on above: Order Comment: Urina lysis Microscopic order added on by [employer] Expert Rules system. Performed By: #### 7 138569, [id number], [id number] #### [facility] (DEFAULT) [address] [place] [address] UA WBC 0-2 [facility] Comment on above: Order Comment: Urina lysis Microscopic order added on by [employer] Expert Rules system. Performed By: #### 7 698752, [id number], [id number] #### [facility] (DEFAULT) [address] [place] [address] 44090 UA w Culture if Ind Standard on 09-25-2019 Breakpoint UA [facility] Comment on above: Order Comment: sim insert Performed By: #### 7 615653, [id number], [id number] #### [facility] (DEFAULT) [address] [place] [address] 79381 Color (U) Yellow [facility] Comment on above: Order Comment: sim insert Performed By: #### 7 419478, [id number], [id number] #### [facility] (DEFAULT) [address] [place] [address] 45106 Culture? Indicated [facility] Comment on above: Order Comment: sim insert Performed By: #### 7 867777, [id number], [id number] #### [facility] (DEFAULT) [address] [place] [address] 80407 Glucose (U) [Mass/Vol] Negative [facility] Comment on above: Order Comment: sim insert Performed By: #### 7 768045, 35121828, [id number] #### [facility] (DEFAULT) [address] [place] [address] Ketones Ql (U) Negative [facility] Comment on above: Order Comment: sim insert Performed By: #### 7 749071, 14607084, [id number] #### [facility] (DEFAULT) [address] [place] [address] 98295 Micro? Indicated [facility] Comment on above: Order Comment: sim insert Performed By: #### 7 634722, 78295622, [id number] #### [facility] (DEFAULT) [address] [place] [address] UA Bilirubin Negative [facility] Comment on above: Order Comment: sim insert Performed By: #### 7 828935, 71579358, [id number] #### [facility] (DEFAULT) [address] [place] [address] 94987 UA Blood Negative Normal NEGATIVE [facility] Comment on above: Order Comment: sim insert Performed By: #### 7 718451, 34864171, [id number] #### [facility] (DEFAULT) [address] [place] [address] 20341 UA Clarity CLEAR Normal CLEAR [facility] Comment on above: Order Comment: sim insert Performed By: #### 7 957647, 12588503, [id number] #### [facility] (DEFAULT) [address] [place] [address] 82689 UA Leuk Est SMALL Abnormal NEGATIVE [facility] Comment on above: Order Comment: sim insert Performed By: #### 7 818308, 93905616, [id number] #### [facility] (DEFAULT) [address] [place] [address] 22071 UA Nitrite Positive Abnormal NEGATIVE [facility] Comment on above: Order Comment: sim insert Performed By: #### 7 378098, 42907158, [id number] #### [facility] (DEFAULT) [address] [place] [address] 97959 UA pH 7.0 Normal 5-8 [facility] Comment on above: Order Comment: sim insert Performed By: #### 7 892309, 58213574, [id number] #### [facility] (DEFAULT) [address] [place] [address] 01381 UA Protein Negative Normal NEGATIVE [facility] Comment on above: Order Comment: sim insert Performed By: #### 7 334368, 59031823, [id number] #### [facility] (DEFAULT) [address] [place] [address] 66740 UA Spec Grav 1.020 Normal 1.001-1.[address] [place] [address] Comment on above: Order Comment: sim insert Performed By: #### 7 444874, 61445810, [id number] #### [facility] (DEFAULT) [address] [place] [address] 81400 UA Urobilinogen 0.2 mg/dL Normal 0.2-1.0 [facility] Comment on above: Order Comment: sim insert Performed By: #### 7 304320, 50026201, [id number] #### [facility] (DEFAULT) [address] [place] [address] Urine Source Clean Catch [facility] Comment on above: Order Comment: sim insert Performed By: #### 7 167149, 80985924, [id number] #### [facility] (DEFAULT) [address] [place] [address] XR Hip Complete Lefton 09-24 XR Hip [...] up as needed. Final Dictated by: Bandar nOeill MD Dictated DT/TM: 09/25/19 2:34 Signed (Electronic Signature): Bandar Oneill MD 09/25/19 3:55 pm Technologist: OCHOA NAZARIO [facility] Patient Handouton 09-24-2019 Patient Handout [facility] Progress Note - Nurseon 09-08 Progress Note - Nurse Spoke with pt reggonzález rding arrival time of 0700 and NPO status. Verbalized understanding. [Electronically Signed on: 09/22/2019 09:47 EDT] Kimberley Holden RN [Verified on: 09/22/2019 09:47 EDT] Kimberley Holden RN [facility] SARS-CoV-2 (COVID-19) PCRon 09-22-2019 COVID-19 PCR Not Detected Normal Not Detected [facility] Comment on above: Performed By: #### 7 759496, [id number], [id number] #### [facility] (DEFAULT) [address] [place] [address] 58907 Employed in healthcare? Unknown [facility] Comment on above: Performed By: #### 7 282403, 90564262, [id number] #### [facility] (DEFAULT) [address] [place] [address] 18863 Group care resident? Unknown [facility] Comment on above: Performed By: #### 7 078295, 36294466, [id number] #### [facility] (DEFAULT) [address] [place] [address] Hospitalized due to COVID-19? Unknown [facility] Comment on above: Performed By: #### 7 043803, 77495756, [id number] #### [facility] (DEFAULT) [address] [place] [address] 82745 In ICU? Unknown [facility] Comment on above: Performed By: #### 7 074371, 66500447, [id number] #### [facility] (DEFAULT) [address] [place] [address] 65551 status? Unknown [facility] Comment on above: Performed By: #### 7 083406, 30310378, [id number] #### [facility] (DEFAULT) [address] [place] [address] 15675 Symptomatic as defined by CDC? Unknown [facility] Comment on above: Performed By: #### 7 769844, 36175008, [id number] #### [facility] (DEFAULT) [address] [place] [address] 67928 Coding Summaryon 09-13-2019 Coding Summary CODING DATE: 020 FINAL [facility] STATUS: Home PAYOR: Medicare APC DESCRIPTION 5733 Level 3 Minor Procedures ADMIT DX: REASON FOR VISIT DX: Z01.818 Encounter for other preprocedural examination I10 Essential (primary) hypertension I25.10 Atherosclerotic heart disease of [place] coronary artery without angina pectoris FINAL DX: PRINCIPAL: Z01.818 Encounter for other preprocedural examination SECONDARY: I10 Essential (primary) hypertension I25.10 Atherosclerotic heart disease of [place] coronary artery without angina pectoris K21.9 Gastro-esophageal [...] Marisela Lawrence Date Saved: 09/13/2019 09:18 am [facility] Coding Summaryon 09-06-2019 Coding Summary CODING DATE: 020 [facility] STATUS: Home PAYOR: Medicare APC DESCRIPTION 5733 Level 3 Minor Procedures ADMIT DX: REASON FOR VISIT DX: Z01.818 Encounter for other preprocedural examination I10 Essential (primary) hypertension I25.10 Atherosclerotic heart disease of [place] coronary artery without angina pectoris FINAL DX: PRINCIPAL: Z01.818 Encounter for other preprocedural examination SECONDARY: I10 Essential (primary) hypertension I25.10 Atherosclerotic heart disease of [place] coronary artery without angina pectoris K21.9 Gastro-esophageal reflux disease without esophagitis PYMT PROC APC STAT DESCRIPTION DOCTOR NAME DATE NOTE: The code number assigned matches the documented diagnosis and / or procedure in the patient's chart. However, the narrative phrase printed from the coding software may appear abbreviated, or result in slightly different terminology. Coded By: Marisela Lawrence Date Saved: 09/06/2019 09:20 am [facility] Progress Note - Nurseon 08-09 Progress Note - Nurse chart reviewed per Dr Akbar anesthesiologist, and cleared for surgery on 09/25/2019 [Electronically Signed on: 09/04/2019 14:30 EDT] Nimco Albarado RN [Verified on: 09/04/2019 14:30 EDT] Nimco Albarado RN [facility] Progress Note - Nurse Xin at Dr Aydin rosario notified that pt has positive urine culture. [Electronically Signed on: 09/04/2019 13:37 EDT] Dionne Yun RN [Verified on: 09/04/2019 13:37 EDT] Dionne Yun RN [facility] Provider Orderson 09-04-2019 Provider Orders [id number] FF [facility] C Urineon 09-03-2019 C Urine [...] S <=4 Verified Tri/Sulf S <=2/38 Verified [facility] Comment on above: Performed By: #### 1 [id number], [id number], [id number] #### [facility] (DEFAULT) [address] [place] [address] 80687 C MRSA Screenon 09-02-2019 C MRSA Screen Negative Normal [facility] Comment on above: Performed By: #### 1 [id number] #### [facility] (DEFAULT) [address] [place] [address] 60067 .Auto Diff 1on 09-01-2019 Auto Talbot % 10 % Normal 1-12 [facility] Comment on above: Performed By: #### 7 835878, 87650766, [id number] #### [facility] (DEFAULT) [address] [place] [address] 52092 Baso Abs# 0.0 x10 Normal 0.0-0.2 [facility] Comment on above: Performed By: #### 7 567381, 34835921, [id number] #### [facility] (DEFAULT) [address] [place] [address] 45956 Basophils/100 WBC (Bld) 0.3 % Normal 0.2-2.0 [facility] Comment on above: Performed By: #### 7 973717, 68438773, [id number] #### [facility] (DEFAULT) [address] [place] [address] Eos Abs# 0.1 x10 Normal 0.0-0.4 [facility] Comment on above: Performed By: #### 7 552002, 07844702, [id number] #### [facility] (DEFAULT) [address] [place] [address] 66061 Eosinophils/100 WBC (Bld) 0.9 % Normal 0.9-4.0 [facility] Comment on above: Performed By: #### 7 772522, 56271189, [id number] #### [facility] (DEFAULT) [address] [place] [address] 30331 Lymphocytes (Bld) [#/Vol] 1.0 x10 Low 1.3-2.9 [facility] Comment on above: Performed By: #### 7 445716, 90162082, [id number] #### [facility] (DEFAULT) [address] [place] [address] 78889 Lymphocytes/100 WBC (Bld) 10 % Low 14-48 [facility] Comment on above: Performed By: #### 7 780186, 30737027, [id number] #### [facility] (DEFAULT) [address] [place] [address] [place]bot Abs# 1.0 x10 High 0.0-0.8 [facility] Comment on above: Performed By: #### 7 609611, 23971856, [id number] #### [facility] (DEFAULT) [address] [place] [address] Neut Abs# 8.0 x10 Normal 1.5-9.2 [facility] Comment on above: Performed By: #### 7 614557, 61136855, [id number] #### [facility] (DEFAULT) [address] [place] [address] Neutrophils/100 WBC (Bld) 79 % Normal 44-88 [facility] Comment on above: Performed By: #### 7 283577, 61913357, [id number] #### [facility] (DEFAULT) [address] [place] [address] Standardon 09-01-2019 eGFR Non AA 44 mL/min/1.73m2 [facility] Comment on above: Performed By: #### 7 440644, 55123370, [id number] #### [facility] (DEFAULT) [address] [place] [address] eGFR AA 54 mL/min/1.73m2 [facility] Comment on above: Result Comment: Configuration Manager kody Kidney disease could be indicated at eGFRs of less than 60 ml/min/1.73m2. Kidney Failure is indicated at less than 15 ml/min/1.73m2 Performed By: #### 7 900783, 55176548, [id number] #### [facility] (DEFAULT) [address] [place] [address] Anion gap [Moles/Vol] 15.0 mmol/L Normal 5.0-19.0 [facility] Comment on above: Performed By: #### 7 973783, 98000327, [id number] #### [facility] (DEFAULT) [address] [place] [address] 66459 Calcium [Mass/Vol] 9.2 mg/dL Normal 8.9-10.[address] [facility] Comment on above: Performed By: #### 7 951100, 44353881, [id number] #### [facility] (DEFAULT) [address] [place] [address] 18562 Chloride [Moles/Vol] 101 mmol/L Normal 101-111 [facility] Comment on above: Performed By: #### 7 665422, 92137425, [id number] #### [facility] (DEFAULT) [address] [place] [address] 74534 CO2 [Moles/Vol] 25 mmol/L Normal 21-32 [facility] Comment on above: Performed By: #### 7 738260, 72475480, 6127445403 #### [facility] (DEFAULT) [address] [place] [address] 26403 Creatinine [Mass/Vol] 1.17 mg/dL Normal 0.60-1.30 [facility] Comment on above: Performed By: #### 7 313230, 91452010, [id number] #### [facility] (DEFAULT) [address] [place] [address] 78074 Glucose [Mass/Vol] 94.0 mg/dL Normal 74.0-118.[address] [facility] Comment on above: Performed By: #### 7 160869, 55813219, [id number] #### [facility] (DEFAULT) [address] [place] [address] 82520 Osmolality [Osmolality] 276 mOsm/L [facility] Comment on above: Performed By: #### 7 986344, 37632104, [id number] #### [facility] (DEFAULT) [address] [place] [address] 27758 Potassium [Moles/Vol] 4.0 mmol/L Normal 3.6-5.1 [facility] Comment on above: Performed By: #### 7 558023, 08125050, [id number] #### [facility] (DEFAULT) [address] [place] [address] Sodium [Moles/Vol] 137.0 mmol/L Normal 136.0-[address] [facility] Comment on above: Performed By: #### 7 461849, 59052964, [id number] #### [facility] (DEFAULT) [address] [place] [address] Urea nitrogen [Mass/Vol] 20 mg/dL Normal 8-26 [facility] Comment on above: Performed By: #### 7 100030, 82668688, [id number] #### [facility] (DEFAULT) [address] [place] [address] Urea nitrogen/Creatinine [Mass ratio] 17.0 mg/mg High 4.6-16.2 [facility] Comment on above: Performed By: #### 7 265773, 15035986, 7235655055 #### [facility] (DEFAULT) [address] [place] [address] CBC w/ Auto Diffon 0 Erythrocyte distribution width (RBC) [Ratio] 13.9 % Normal 11.5-15.0 [facility] Comment on above: Performed By: #### 7 602437, 02085474, [id number] #### [facility] (DEFAULT) [address] [place] [address] Hematocrit (Bld) [Volume fraction] 38.5 % Normal 33.7-40.4 [facility] Comment on above: Performed By: #### 7 690797, 79321669, 0782243086 #### [facility] (DEFAULT) [address] [place] [address] Hemoglobin (Bld) [Mass/Vol] 12.6 g/dL Normal 11.3-15.9 [facility] Comment on above: Performed By: #### 7 375709, 59754926, 5694968373 #### [facility] (DEFAULT) [address] [place] [address] Man Diff? Auto Normal [facility] Comment on above: Performed By: #### 7 032352, 23018165, [id number] #### [facility] (DEFAULT) [address] [place] [address] 54464 MCH (RBC) [Entitic mass] 33 pg Normal 24-34 [facility] Comment on above: Performed By: #### 7 117065, 94066892, [id number] #### [facility] (DEFAULT) [address] [place] [address] 95524 MCHC (RBC) [Mass/Vol] 33 g/dL Normal 26-37 [facility] Comment on above: Performed By: #### 7 729848, 56126608, 1598151239 #### [facility] (DEFAULT) [address] [place] [address] 03029 MCV (RBC) [Entitic vol] 101 fL High 81-100 [facility] Comment on above: Performed By: #### 7 409058, 52214326, [id number] #### [facility] (DEFAULT) [address] [place] [address] 58432 Platelet mean volume (Bld) [Entitic vol] 9.5 fL Normal 6.3-10.2 [facility] Comment on above: Performed By: #### 7 616523, 16154018, [id number] #### [facility] (DEFAULT) [address] [place] [address] 66657 Platelets (Bld) [#/Vol] 292 x10 Normal 138-427 [facility] Comment on above: Performed By: #### 7 627015, 46999875, 3379759189 #### [facility] (DEFAULT) [address] [place] [address] 06048 RBC (Bld) [#/Vol] 3.82 x10 Normal 3.70-5.30 [facility] Comment on above: Performed By: #### 7 208330, 07813852, [id number] #### [facility] (DEFAULT) [address] [place] [address] 18076 WBC (Bld) [#/Vol] 10.1 x10 Normal 3.5-10.5 [facility] Comment on above: Performed By: #### 7 409944, 44041507, [id number] #### [facility] (DEFAULT) [address] [place] [address] UA [id number] 09-01-2019 RBC (U) [#/Vol] None Seen [facility] Comment on above: Order Comment: Urina lysis Microscopic order added on by [employer] Rules system. Performed By: #### 1 [id number], 90219892, [id number] #### [facility] (DEFAULT) [address] [place] [address] UA Amorph. 1+ [facility] Comment on above: Order Comment: Urina lysis Microscopic order added on by [employer] Rules system. Performed By: #### 1 [id number], 30217153, 6478000 #### [facility] (DEFAULT) [address] [place] [address] UA Bacteria 4+ [facility] Comment on above: Order Comment: Urina lysis Microscopic order added on by [employer] Rules system. Performed By: #### 1 [id number], 38724217, 8460583 #### [facility] (DEFAULT) [address] [place] [address] UA Squam Epi Moderate [facility] Comment on above: Order Comment: Urina lysis Microscopic order added on by [employer] Expert Rules system. Performed By: #### 1 [id number], 31599009, 1121109 #### [facility] (DEFAULT) [address] [place] [address] UA WBC 15-20 [facility] Comment on above: Order Comment: Urina lysis Microscopic order added on by [employer] Expert Rules system. Performed By: #### 1 [id number], 76232060, 8437098 #### [facility] (DEFAULT) [address] [place] [address] UA w Culture if Ind Standard on 09-01-2019 Breakpoint UA [facility] Comment on above: Performed By: #### 1 [id number], 65790275, 0703487 #### [facility] (DEFAULT) [address] [place] [address] Color (U) Yellow [facility] Comment on above: Performed By: #### 1 495012721, 92257608, 7555295 #### [facility] (DEFAULT) [address] [place] [address] 43561 Culture? Yes Normal [facility] Comment on above: Performed By: #### 1 035976877, 33365720, 8487672 #### [facility] (DEFAULT) [address] [place] [address] 53084 Glucose (U) [Mass/Vol] Negative Normal [facility] Comment on above: Performed By: #### 1 257487610, 05407251, 6269025 #### [facility] (DEFAULT) [address] [place] [address] 72525 Ketones Ql (U) Negative Normal [facility] Comment on above: Performed By: #### 1 586779686, 32775070, 3717491 #### [facility] (DEFAULT) [address] [place] [address] 19491 Micro? Indicated [facility] Comment on above: Performed By: #### 1 225890698, 16077149, 5523589 #### [facility] (DEFAULT) [address] [place] [address] 31843 UA Bilirubin Negative Normal [facility] Comment on above: Performed By: #### 1 707591141, 39429305, 1177731 #### [facility] (DEFAULT) [address] [place] [address] 56712 UA Blood TRACE Abnormal NEGATIVE [facility] Comment on above: Performed By: #### 1 595410396, 93064692, 9565757 #### [facility] (DEFAULT) [address] [place] [address] 43898 UA Clarity CLEAR Normal CLEAR [facility] Comment on above: Performed By: #### 1 [id number], 83113145, 5090625 #### [facility] (DEFAULT) [address] [place] [address] 89898 UA Leuk Est MODERATE Abnormal NEGATIVE [facility] Comment on above: Performed By: #### 1 898725424, 81474629, 4339714 #### [facility] (DEFAULT) [address] [place] [address] 88062 UA Nitrite Positive Abnormal NEGATIVE [facility] Comment on above: Performed By: #### 1 197953246, 43111117, 2452588 #### [facility] (DEFAULT) [address] [place] [address] 90684 UA pH 5.5 Normal 5-8 [facility] Comment on above: Performed By: #### 1 011339260, 81911864, 5344951 #### [facility] (DEFAULT) [address] [place] [address] 48261 UA Protein Negative Normal NEGATIVE [facility] Comment on above: Performed By: #### 1 308402133, 56790954, 1531209 #### [facility] (DEFAULT) [address] [place] [address] 35905 UA Spec Grav 1.025 Normal 1.001-1.[address] [place] [address] Comment on above: Performed By: #### 1 081563905, 55823152, 5726187 #### [facility] (DEFAULT) [address] [place] [address] 81918 UA Urobilinogen 0.2 mg/dL Normal 0.2-1.0 [facility] Comment on above: Performed By: #### 1 255693156, 04680710, 7691598 #### [facility] (DEFAULT) [address] [place] [address] 02621 Urine Source Clean Catch Normal [facility] Comment on above: Performed By: #### 1 [id number], 36500704, 8467732 #### [facility] (DEFAULT) [address] [place] [address] 18508 JOINT PAIN INJECTION 09-06 JOINT PAIN INJECTION [facility] Department of Radiology [address] [place] [address] Patient Name: VINCENT HSU : [...] guidance. Electronically signed by:Christy Ochoa. Transcribed by: [email or web address], User Resident: Electronically Signed by: CHRISTY OCHOA @ 09/09/2018 05:57 PM Normal [facility] Comment on above: Order Comment: , Dr. Ochoa , Body Part: Hip , Side: LEFT , Dr. Ochoa , Body Part: Hip , Side: LEFT , , , Ordering Provider - HERMELINDO HILLMAN MD , CT 3D LOWER EXTREMITY WO CON TRAST LEFTon 08-02-2018 CT 3D LOWER EXTREMITY WO CONTRAST LEFT [facility] Department of Radiology [address] [place] [id number] Patient Name: VINCENT HSU : 1935 Sex: F Age: Race: White Pt. 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 MEDICARE NO PC REQ [...] arthritis. Electronically signed by:Coy Jerome. Transcribed by: [email or web address], User Resident: Electronically Signed by: COY JEROME @ 08/08/2018 02:20 PM Normal [facility] Comment on above: Order Comment: , Jessie perkins left hip healing HIP LEFT 1 OR 2 VWS WITH PEL VISon 03-18-2018 HIP LEFT 1 OR 2 VWS WITH PELVIS [facility] Department of Radiology [address] [place] [address] Patient Name: VINCENT HSU : [...] study Electronically signed by:Coy Jerome. Transcribed by: [email or web address], User Resident: Electronically Signed by: COY JEROME @ 03/18/2018 02:19 PM Normal [facility] Comment on above: Order Comment: , , = ========= , Ordering Provider - MIRTHA VELÁSQUEZ PA-C , HIP LEFT 1 OR 2 VWS WITH PEL VISon 01-10-2018 HIP LEFT 1 OR 2 VWS WITH PELVIS [facility] Department of Radiology [address] [place] [id number] Patient Name: VINCENT HSU : 1935 [...] arthritis. Electronically signed by:Manjit Whatley. Transcribed by: [email or web address], User Resident: Electronically Signed by: MANJIT WHATLEY @ 01/10/2018 04:38 PM Normal [facility] Comment on above: Order Comment: , Carmella ws (X-RAY, HIP): Radiologic Protocol , Views (X-RAY, HIP): Radiologic Protocol , , , Ordering Rebeka VELÁSQUEZ PA-C , HIP LEFT 1 OR 2 VWS WITH PEL VISon 11-01-2017 HIP LEFT 1 OR 2 VWS WITH PELVIS [facility] Department of Radiology [address] [place] [id number] Patient Name: VINCENT HSU : 1935 Sex: F Age: Race: White Pt. 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 Electronically signed by:Gerson Rodriguez. Transcribed by: [email or web address], User Resident: Electronically Signed by: GERSON RODRIGUEZ @ 11/01/2017 03:25 PM Normal [facility] Comment on above: Order Comment: , lEanae ws (X-RAY, HIP): Radiologic Protocol , Views (X-RAY, HIP): Radiologic Protocol , , , Ordering Provider - MIRTHA VELÁSQUEZ PA-C , HIP LEFT 1 OR 2 VWS WITH PEL VISon 09-21-2017 HIP LEFT 1 OR 2 VWS WITH PELVIS [facility] Department of Radiology [address] [place] [address] Patient Name: VINCENT HSU : [...] fracture Electronically signed by:Coy Jerome. Transcribed by: [email or web address], User Resident: Electronically Signed by: COY JEROME @ 09/21/2017 03:27 PM Normal [facility] Comment on above: Order Comment: , , = ========= , Ordering Rebeka MORENO-C , Vital Signs Date Time Vital Sign Value Performing Clinician Facility 05-24-2023 13:35-0400 Body height 177.8 cm MD Gypsy Mcmahon Work Phone: [facility] 05-24-2023 13:35-0400 Body mass index (BMI) [Ratio] 18.8 kg/m2 MD Gypsy Mcmahon Work Phone: [facility] 05-24-2023 13:35-0400 Body temperature 97.7 [degF] MD Gypsy Mcmahon Work Phone: [facility] 05-24-2023 13:35-0400 Body weight 59.42 kg MD Gypsy Mcmahon Work Phone: [facility] 05-24-2023 13:35-0400 Diastolic blood pressure 54 mm[Hg] MD Gypsy Mcmahon Work Phone: [facility] 05-24-2023 13:35-0400 Heart rate 63 /min MD Gypsy Mcmahon Work Phone: [facility] 05-24-2023 13:35-0400 Systolic blood pressure 127 mm[Hg] MD Gypsy Mcmahon Work Phone: [facility] 05-21-2023 10:26-0400 Body height 177.8 cm MD Gypsy Mcmahon Work Phone: [facility] 05-21-2023 09:54-0400 Body mass index (BMI) [Ratio] 18.6 kg/m2 MD Gypsy Mcmahon Work Phone: [facility] 05-21-2023 09:54-0400 Body weight 58.96 kg MD Gypsy Mcamhon Work Phone: [facility] 05-05-2023 16:40-0400 Diastolic blood pressure 71 mm[Hg] MD Jacinto Max Work Phone: [facility] 05-05-2023 16:40-0400 Systolic blood pressure 170 mm[Hg] MD Jacinto Max Work Phone: [facility] 05-05-2023 16:36-0400 Body height 177.8 cm MD Jacinto Max Work Phone: [facility] 05-05-2023 16:36-0400 Body temperature 98.1 [degF] MD Jacinto Max Work Phone: [facility] 05-05-2023 16:36-0400 Body weight 59.87 kg MD Jacinto aMx Work Phone: [facility] 05-05-2023 16:36-0400 Heart rate 71 /min MD Jacinto Max Work Phone: [facility] 05-05-2023 16:36-0400 Respiratory rate 18 /min MD Jacinto Max Work Phone: [facility] 05-05-2023 16:36-0400 SaO2% (BldA) [Mass fraction] 98 % MD Jacinto Max Work Phone: [facility] 04-15-2023 13:30-0500 Body height 167.64 cm MD Jacinto Max Work Phone: [facility] 04-15-2023 13:30-0500 Body mass index (BMI) [Ratio] 20.8 kg/m2 MD Jacinto Max Work Phone: [facility] 04-15-2023 13:30-0500 Body temperature 97.2 [degF] MD Jacinto Max Work Phone: [facility] 04-15-2023 13:30-0500 Body weight 58.57 kg MD Jacinto Max Work Phone: [facility] 04-15-2023 13:30-0500 Diastolic blood pressure 75 mm[Hg] MD Jacinto Max Work Phone: [facility] 04-15-2023 13:30-0500 Heart rate 60 /min MD Jacinto Max Work Phone: [facility] 04-15-2023 13:30-0500 Systolic blood pressure 165 mm[Hg] MD Jacinto Max Work Phone: [facility] 02-26-2023 10:00-0500 Body height 167.64 cm MD Jacinto Max Work Phone: [facility] 02-26-2023 10:00-0500 Diastolic blood pressure 76 mm[Hg] MD Jacinto Max Work Phone: [facility] 02-26-2023 10:00-0500 Systolic blood pressure 156 mm[Hg] MD Jacinto Max Work Phone: [facility] 02-25-2023 10:15-0500 Body height 175.26 cm MD Jacinto Max Work Phone: [facility] 02-25-2023 10:15-0500 Body weight 59.1 kg MD Jacinto Max Work Phone: [facility] 02-25-2023 10:02-0500 Diastolic blood pressure 74 mm[Hg] MD Jacinto Max Work Phone: [facility] 02-25-2023 10:02-0500 Heart rate 67 /min MD Jacinto Max Work Phone: [facility] 02-25-2023 10:02-0500 Systolic blood pressure 157 mm[Hg] MD Jacinto Max Work Phone: [facility] 02-18-2023 14:00-0500 Body height 167.64 cm Jacinto Max Other [facility] 02-18-2023 14:00-0500 Body mass index (BMI) [Ratio] 20.66 kg/m2 Jacinto Max Other [facility] Other 02-18-2023 14:00-0500 Body temperature 97.2 [degF] Jacinto Max Other [facility] Other 02-18-2023 14:00-0500 Body weight 58.06 kg Jacinto Max Other [facility] Other 02-18-2023 14:00-0500 Body weight 58.05 kg MD Jacinto Max Work Phone: [facility] 02-18-2023 14:00-0500 Diastolic blood pressure 66 mm[Hg] Jacinto Max Other [facility] 02-18-2023 14:00-0500 Systolic blood pressure 150 mm[Hg] Jacinto Max Other [facility] 02-16-2023 13:30-0500 Body height 167.64 cm Gypsy Mcmahon Other [facility] 02-16-2023 13:30-0500 Body mass index (BMI) [Ratio] 20.66 kg/m2 Gypsy Mcmahon Other [facility] Other 02-16-2023 13:30-0500 Body weight 58.06 kg Gypsy Mcmahon Other [facility] Other 02-16-2023 13:30-0500 Body weight 58.05 kg MD Jacinto Max Work Phone: [facility] 02-16-2023 13:30-0500 Diastolic blood pressure 68 mm[Hg] Gypsy Mcmahon Other [facility] 02-16-2023 13:30-0500 SaO2% (BldA) [Mass fraction] 96 % Gypsy Mcmahon Other [facility] Other 02-16-2023 13:30-0500 Systolic blood pressure 140 mm[Hg] Gypsy Mcmahon Other [facility] 02-04-2023 09:09-0500 Heart rate 84 /min MALATHI DEB [facility] 02-04-2023 09:09-0500 SaO2% (BldA) [Mass fraction] 95 % MALATHI DEB [facility] 02-04-2023 09:08-0500 Diastolic blood pressure 88 mm[Hg] MALATHI DEB [facility] 02-04-2023 09:08-0500 Mean blood pressure 121 mm[Hg] MALATHI DEB [facility] 02-04-2023 09:08-0500 Systolic blood pressure 188 mm[Hg] MALATHI DEB [facility] 02-04-2023 09:08-0500 Respiratory rate 20 /min MALATHI DEB [facility] 02-04-2023 09:08-0500 Body temperature 97.7 [degF] MALATHI DEB [facility] 02-03-2023 09:15-0500 Heart rate 77 /min MALATHI DEB [facility] 02-03-2023 09:15-0500 SaO2% (BldA) [Mass fraction] 97 % MALATHI DEB [facility] 02-03-2023 09:14-0500 Respiratory rate 18 /min MALATHI DEB [facility] 02-03-2023 09:14-0500 Diastolic blood pressure 97 mm[Hg] MALATHI DEB [facility] 02-03-2023 09:14-0500 Mean blood pressure 130 mm[Hg] MALATHI DEB [facility] 02-03-2023 09:14-0500 Systolic blood pressure 197 mm[Hg] MALATHI DEB [facility] 02-03-2023 09:13-0500 Body temperature 98.06 [degF] MALATHI DEB [facility] 02-02-2023 09:10-0500 Heart rate 75 /min MALATHI DEB [facility] 02-02-2023 09:10-0500 SaO2% (BldA) [Mass fraction] 93 % MALATHI DEB [facility] 02-02-2023 09:09-0500 Respiratory rate 20 /min MALATHI DEB [facility] 02-02-2023 09:08-0500 Diastolic blood pressure 87 mm[Hg] MALATHI DEB [facility] 02-02-2023 09:08-0500 Mean blood pressure 123 mm[Hg] MALATHI DEB [facility] 02-02-2023 09:08-0500 Systolic blood pressure 194 mm[Hg] MALATHI DEB [facility] 02-02-2023 09:08-0500 Body temperature 97.7 [degF] MALATHI DEB [facility] 02-01-2023 09:50-0500 Heart rate 77 /min MALATHI DEB [facility] 02-01-2023 09:50-0500 Mean blood pressure 115 mm[Hg] MALATHI DEB [facility] 02-01-2023 09:10-0500 Heart rate 84 /min MALATHI DEB [facility] 01-29-2023 11:26-0500 Heart rate 75 /min MALATHI DEB [facility] 01-29-2023 11:26-0500 SaO2% (BldA) [Mass fraction] 95 % MALATHI DEB [facility] 01-29-2023 11:26-0500 Respiratory rate 16 /min MALATHI DEB [facility] 01-29-2023 11:25-0500 Diastolic blood pressure 83 mm[Hg] MALATHI DEB [facility] 01-29-2023 11:25-0500 Mean blood pressure 108 mm[Hg] MALATHI DEB [facility] 01-29-2023 11:25-0500 Systolic blood pressure 158 mm[Hg] MALATHI DEB [facility] 01-29-2023 11:25-0500 Body temperature 98.06 [degF] MALATHI DEB [facility] 01-29-2023 10:54-0500 Heart rate 74 /min MALATHI DEB [facility] 01-29-2023 10:54-0500 SaO2% (BldA) [Mass fraction] 97 % MALATHI DEB [facility] 01-29-2023 10:54-0500 Respiratory rate 16 /min MALATHI VIEIRA [facility] 01-29-2023 10:53-0500 Body temperature 97.52 [degF] MALATHI VIEIRA [facility] 01-29-2023 10:53-0500 Diastolic blood pressure 84 mm[Hg] MALATHI VIEIRA [facility] 01-29-2023 10:53-0500 Mean blood pressure 104 mm[Hg] MALATHI VIEIRA [facility] 01-29-2023 10:53-0500 Systolic blood pressure 146 mm[Hg] MALATHI VIEIRA [facility] 01-12-2023 13:30-0500 Body height 167.64 cm Hunter Brown Other [employer] [facility] Other 01-12-2023 13:30-0500 Body mass index (BMI) [Ratio] 22 kg/m2 Hunter Brown Other [facility] Other 01-12-2023 13:30-0500 Body weight 61.83 kg Hunter Brown Other [facility] Other 01-12-2023 13:30-0500 Diastolic blood pressure 60 mm[Hg] Hunter Brown Other [facility] Other 01-12-2023 13:30-0500 Systolic blood pressure 137 mm[Hg] Hunter Brown Other [facility] Other 01-05-2023 11:30-0500 Body height 167.64 cm Gypsy Mcmahon Other [facility] Other 01-05-2023 11:30-0500 Body mass index (BMI) [Ratio] 21.63 kg/m2 Gypsy Mcmahon Other [facility] Other 01-05-2023 11:30-0500 Body weight 60.78 kg Gypsy Mcmahon Other [facility] Other 01-05-2023 11:30-0500 Diastolic blood pressure 72 mm[Hg] Gypsy Mcmahon Other [facility] Other 01-05-2023 11:30-0500 Systolic blood pressure 162 mm[Hg] Gypsy Mcmahon Other [facility] Other 12-28-2022 13:30-0500 Body height 167.64 cm Malathi Velázquez Other [facility] Other 12-28-2022 13:30-0500 Body mass index (BMI) [Ratio] 19.98 kg/m2 Malathi Velázquez Other [facility] Other 12-28-2022 13:30-0500 Body weight 56.16 kg Malathi Velázquez Other [facility] Other 12-28-2022 13:30-0500 Diastolic blood pressure 78 mm[Hg] Malahti Velázquez Other [facility] Other 12-28-2022 13:30-0500 Systolic blood pressure 146 mm[Hg] Malathi Velázquez Other [facility] Other 12-15-2022 11:15-0500 Body height 167.64 cm Gypsy Mcmahon Other [facility] Other 12-15-2022 11:15-0500 Body mass index (BMI) [Ratio] 21.53 kg/m2 Gypsy Mcmahon Other [facility] Other 12-15-2022 11:15-0500 Body weight 60.51 kg Gypsy Mcmahon Other [facility] Other 12-15-2022 11:15-0500 Diastolic blood pressure 73 mm[Hg] Gypsy Mcmahon Other [facility] Other 12-15-2022 11:15-0500 Systolic blood pressure 178 mm[Hg] Gypsy Mcmahon Other [facility] Other 09-22-2022 14:14-0400 Blood Pressure Location MALATHI DEB [facility] 09-22-2022 14:14-0400 Diastolic blood pressure 90 mm[Hg] MALATHI DEB [facility] 09-22-2022 14:14-0400 Heart rate 78 /min MALATHI DEB [facility] 09-22-2022 14:14-0400 Systolic blood pressure 142 mm[Hg] MALATHI DEB [facility] 09-01-2022 14:15-0400 Body height 167.64 cm Gypsy Mcmahon Other [facility] Other 09-01-2022 14:15-0400 Body mass index (BMI) [Ratio] 21.14 kg/m2 Gypsy Mcmahon Other [facility] Other 09-01-2022 14:15-0400 Body weight 59.42 kg Gypsy Mcmahon Other [facility] Other 09-01-2022 14:15-0400 Diastolic blood pressure 56 mm[Hg] Gypsy Mcmahon Other [facility] Other 09-01-2022 14:15-0400 Systolic blood pressure 132 mm[Hg] Gypsy Mcmahon Other [facility] [employer] Other 06-09-2022 13:42-0400 Diastolic blood pressure 71 mm[Hg] Marvin Cup[facility]ia [facility] 06-09-2022 13:42-0400 Heart rate 59 /min [employer] [facility] 06-09-2022 13:42-0400 Systolic blood pressure 183 mm[Hg] Marvin KWON [facility] 04-24-2022 11:30-0400 Body height 167.64 cm Hunter Brown Other [facility] Other 04-24-2022 11:30-0400 Body mass index (BMI) [Ratio] 22.11 kg/m2 Hunter Brown Other [facility] Other 04-24-2022 11:30-0400 Body weight 62.14 kg Hunter Brown Other [facility] Other 04-24-2022 11:30-0400 Diastolic blood pressure 70 mm[Hg] Hunter Brown Other [facility] Other 04-24-2022 11:30-0400 Systolic blood pressure 159 mm[Hg] Hunter Brown Other [facility] Other 04-07-2022 14:15-0500 Body height 167.64 cm Gypsy Mcmahon Other [facility] Other 04-07-2022 14:15-0500 Body mass index (BMI) [Ratio] 21.79 kg/m2 Gypsy Mcmahon Other [facility] Other 04-07-2022 14:15-0500 Body weight 61.24 kg Gypsy Mcmahon Other [facility] Other 04-07-2022 14:15-0500 Diastolic blood pressure 62 mm[Hg] Gypsy Mcmahon Other [facility] Other 04-07-2022 14:15-0500 Systolic blood pressure 130 mm[Hg] Gypsy Mcmahon Other [facility] Other 03-11-2022 13:35-0500 Body temperature 97.5 [degF] MD Gypsy Mcmahon Work Phone: [facility] 03-11-2022 13:35-0500 Diastolic blood pressure 61 mm[Hg] MD Gypsy Mcmahon Work Phone: [facility] 03-11-2022 13:35-0500 Heart rate 60 /min MD Gypsy Mcmahon Work Phone: [facility] 03-11-2022 13:35-0500 Respiratory rate 18 /min MD Gypsy Mcmahon Work Phone: [facility] 03-11-2022 13:35-0500 SaO2% (BldA) [Mass fraction] 96 % MD Gypsy Mcmahon Work Phone: [facility] 03-11-2022 13:35-0500 Systolic blood pressure 135 mm[Hg] MD Gypsy Mcmahon Work Phone: [facility] 02-16-2022 10:45-0500 Body height 167.64 cm Gypsy Mcmahon Other [facility] Other 02-16-2022 10:45-0500 Body mass index (BMI) [Ratio] 21.46 kg/m2 Gypsy Mcmahon Other [facility] Other 02-16-2022 10:45-0500 Body weight 60.33 kg Gypsy Mcmahon Other [facility] Other 02-16-2022 10:45-0500 Diastolic blood pressure 70 mm[Hg] Gypsy Mcmahon Other [facility] Other 02-16-2022 10:45-0500 Systolic blood pressure 120 mm[Hg] Gypsy Mcmahon Other [facility] Other 02-11-2022 12:00-0500 Body height 172.72 cm Hunter Brown Other [facility] Other 02-11-2022 12:00-0500 Body mass index (BMI) [Ratio] 20.83 kg/m2 Hunter Brown Other [facility] Other 02-11-2022 12:00-0500 Body weight 62.14 kg Hunter Brown Other [facility] Other 02-11-2022 12:00-0500 Diastolic blood pressure 68 mm[Hg] Hunter Brown Other [facility] Other 02-11-2022 12:00-0500 Systolic blood pressure 144 mm[Hg] Hunter Brown Other [facility] Other 01-05-2022 10:30-0500 Body height 172.72 cm Hunter Brown Other [facility] Other 01-05-2022 10:30-0500 Body mass index (BMI) [Ratio] 22.04 kg/m2 Hunter Brown Other [facility] Other 01-05-2022 10:30-0500 Body weight 65.77 kg Hunter Brown Other [facility] Other 01-05-2022 10:30-0500 Diastolic blood pressure 78 mm[Hg] Hunter Brown Other [facility] Other 01-05-2022 10:30-0500 Systolic blood pressure 166 mm[Hg] Hunter Brown Other [facility] Other 03-27-2021 12:00-0500 Body height 172.72 cm Giana Griffiths Other [facility] Other 03-27-2021 12:00-0500 Body mass index (BMI) [Ratio] 22.96 kg/m2 Giana Rhoadeskes Other [facility] Other 03-27-2021 12:00-0500 Body weight 68.49 kg Giana Jfkes Other [facility] Other 01-27-2021 10:45-0500 Body height 172.72 cm Giana Jfkes Other [facility] Other 01-27-2021 10:45-0500 Body mass index (BMI) [Ratio] 24.48 kg/m2 Giana Jfkes Other [facility] Other 01-27-2021 10:04-4488 Body weight 73.03 kg Giana Griffiths Other [facility] Other Encounters Encounter Date Encounter Type Care Provider Facility Start: 06-23-2023 End: 06-24-2023 ambulatory [facility] Start: 06-17-2023 End: 06-17-2023 ambulatory [facility] Start: 06-15-2023 End: 06-15-2023 ambulatory MALATHI VIEIRA Facility: [facility] Start: 06-15-2023 End: 06-15-2023 Patient encounter procedure MALATHI VIEIRA [facility] Start: 05-28-2023 End: 05-28-2023 ambulatory Monie L Ly Facility:[facility] Start: 05-28-2023 End: 05-28-2023 ambulatory MD Gypsy Mcmahon Work Phone: [facility] Work Phone: Start: 05-28-2023 End: 05-28-2023 Patient encounter procedure MD Gypsy Mcmahon Work Phone: [facility]-CT Scan [facility] [place] Work Phone: Start: 05-25-2023 Non-patient / Non-visit MD Gypsy Mcmahon Work Phone: [facility] Work Phone: Start: 05-24-2023 End: 05-24-2023 Patient encounter procedure MD Gypsy Mcmahon Work Phone: [facility] Work Phone: Start: 05-21-2023 End: 05-21-2023 Patient encounter procedure MD Gypsy Mcmahon Work Phone: [facility] Work Phone: Start: 05-06-2023 Non-patient / Non-visit MD Gypsy Mcmahon Work Phone: [facility] Work Phone: Start: 05-05-2023 End: 05-05-2023 Emergency department patient visit Marvin Garcia Facility:[facility] Start: 05-05-2023 End: 05-05-2023 Emergency department patient visit MD Jacinto Max Work Phone: [facility]Emer[facility] Work Phone: Start: 05-01-2023 Non-patient / Non-visit MD Jacinto Max Work Phone: [facility] Work Phone: Start: 04-15-2023 End: 04-15-2023 Patient encounter procedure MD Jacinto Max Work Phone: [facility] Infect[facility] Disease Work Phone: Start: 04-06-2023 Non-patient / Non-visit MD Jacinto Max Work Phone: [facility] Work Phone: Start: 03-12-2023 End: 03-12-2023 ambulatory Jacinto Max Other [facility] Other Start: 03-12-2023 Telephone encounter Jacinto BA G Infectious Disease Start: 03-11-2023 End: 03-11-2023 ambulatory Jacinto Max Other [facility] Other Start: 03-11-2023 Telephone encounter Jacinto Bustamante Infectious Disease Start: 03-02-2023 End: 03-02-2023 ambulatory Gypsy Mcmahon Other [facility] Other Start: 03-02-2023 Telephone encounter Gypsy Mcmahon [facility] Start: 02-26-2023 End: 02-26-2023 Patient encounter procedure MD Jacinto Max Work Phone: [facility] Start: 02-25-2023 End: 02-25-2023 ambulatory Jacinto Max Facility:[facility] Start: 02-25-2023 End: 02-25-2023 ambulatory MD Jacinto Max Work Phone: [facility] Work Phone: Start: 02-25-2023 End: 02-25-2023 Discharged Recurring MD Jacinto Max Work Phone: [facility]-Infusion Therapy - O/P Work Phone: Start: 02-18-2023 End: 02-18-2023 ambulatory Jacinto Max Other [facility] Other Start: 02-18-2023 Office outpatient ne w 45 minutes Jacinto Max [facility] Infectious Disease Start: 02-18-2023 End: 02-18-2023 Patient encounter procedure MD Jacinto Max Work Phone: [facility] Infectious Disease Work Phone: Start: 02-16-2023 End: 02-16-2023 ambulatory Gypsy Mcmahon Other [facility] Other Start: 02-16-2023 Office outpatient visit 15 minutes Gypsy Mcmahon [facility] Start: 02-16-2023 End: 02-16-2023 Patient encounter procedure MD Jacinto Max Work Phone: [facility] Work Phone: Start: 01-29-2023 End: 05-05-2023 ambulatory MALATHI VIEIRA Facility:[facility] Start: 01-29-2023 End: 01-29-2023 Patient encounter procedure MALATHI VIEIRA [facility] Start: 01-29-2023 End: 05-05-2023 Recurring MALATHI VIEIRA [facility] Start: 01-26-2023 End: 01-26-2023 Patient encounter procedure MALATHI VIEIRA [facility] Start: 01-26-2023 End: 01-26-2023 ambulatory MALATHI VIEIRA [facility] [employer] Other Start: 01-26-2023 Telephone encounter Hunter brady [facility] Start: 01-20-2023 End: 01-20-2023 ambulatory Hunter Brown Other [facility] Other Start: 01-20-2023 Telephone encounter Hunter brady [facility] Start: 01-12-2023 End: 01-12-2023 ambulatory Hunter Brown Other [facility] Other Start: 01-12-2023 Office outpatient visit 25 minutes Hunter Brown [facility] Start: 01-12-2023 End: 01-12-2023 Patient encounter procedure MD Jacinto aMx Work Phone: [facility] Gastroenterology Work Phone: Start: 01-11-2023 End: 01-11-2023 ambulatory Gypsy Mcmahon Other [employer] Other Start: 01-11-2023 Telephone encounter Gypsy Mcmahon [facility] Start: 01-05-2023 End: 01-05-2023 ambulatory Gypsy Mcmahon Other [employer] Other Start: 01-05-2023 Telephone encounter Gypsy Mcmahon [facility] Start: 01-05-2023 Transitional care manage srvc 14 day discharge Gypsy Mcmahon [facility] Start: 01-05-2023 End: 01-05-2023 Patient encounter procedure MD Jacinto Max Work Phone: [facility] Work Phone: Start: 12-30-2022 End: 12-30-2022 ambulatory Malathi Hoodmadelinedoug Other [employer] Other Start: 12-30-2022 Telephone encounter Malathi arias [facility] Start: 12-28-2022 End: 12-28-2022 ambulatory Malathi Melania Other [employer] Other Start: 12-28-2022 Office outpatient visit 15 minutes Malathi Melania [facility] Start: 12-28-2022 End: 12-28-2022 Patient encounter procedure MD Jacinto Max Work Phone: [facility] Work Phone: Start: 12-15-2022 End: 12-15-2022 ambulatory Gypsy Mcmahon Other [employer] Other Start: 12-15-2022 Office outpatient visit 15 minutes Gypsy Mcmahon [facility] Start: 12-15-2022 Telephone encounter Gypsy Mcmahon [facility] Start: 12-15-2022 End: 12-15-2022 Patient encounter procedure MD Jacinto Max Work Phone: [facility] Work Phone: Start: 11-11-2022 End: 11-11-2022 ambulatory EHAB [facility] Start: 10-29-2022 End: 10-29-2022 ambulatory Hunter Brown Facility:[facility] Start: 09-22-2022 End: 09-22-2022 ambulatory MALATHI VIEIRA Facility:[facility] Start: 09-22-2022 End: 09-22-2022 Patient encounter procedure MALATHI VIEIRA [facility] Start: 09-10-2022 End: 09-10-2022 ambulatory Jose G Ellington Other [facility] Other Start: 09-10-2022 Nursing evaluation o f patient and report Jose G Ellington [facility] Start: 09-08-2022 End: 09-08-2022 ambulatory Hunter Galoormack Other [facility] Other Start: 09-08-2022 Telephone encounter Hunter Palomo [facility] Start: 09-01-2022 End: 09-01-2022 ambulatory Gypsy Mcmahon Other [facility] Other Start: 09-01-2022 Office outpatient visit 15 minutes Gypsy Mcmahon [facility] Start: 08-27-2022 End: 08-27-2022 ambulatory Gypsy Mcmahon Other [facility] Other Start: 08-27-2022 Telephone encounter Gypsy Mcmahon [facility] Start: 06-30-2022 End: 06-30-2022 ambulatory AB [facility] Start: 06-09-2022 End: 06-09-2022 Patient encounter procedure Marvin Doug KWON [facility] Start: 05-27-2022 End: 05-28-2022 ambulatory MALATHI VIEIRA Facility: Start: 05-19-2022 End: 05-19-2022 Patient encounter procedure MALATHI VIEIRA [facility] Start: 05-14-2022 End: 05-14-2022 ambulatory Gypsy Mcmahon Other [facility] Other Start: 05-14-2022 Telephone encounter Gypsy Mcmahon [facility] Start: 05-11-2022 End: 05-12-[address] GYPSY MCMAHON Facility:[facility] Start: 05-01-2022 (Televisit) Televisit Gypsy Evangelista [facility] Start: 05-01-2022 End: 05-01-2022 ambulatory Gypsy Mcmahon Other [facility] Other Start: 05-01-2022 Telephone encounter Gypsy Mcmahon [facility] Start: 04-28-2022 End: 04-29-[address] GYPSY MCMAHON Facility:[facility] Start: 04-24-2022 End: 04-24-2022 ambulatory Hunter Brown Other [facility] Other Start: 04-24-2022 Office outpatient visit 15 minutes Hunter Brown [facility] Start: 04-16-2022 End: 04-16-2022 ambulatory Gypsy Mcmahon Other [facility] Other Start: 04-16-2022 Telephone encounter Gypsy Mcmahon [facility] Start: 04-14-2022 End: 04-14-[address] GYPSY MCMAHON Facility:[facility] Start: 04-07-2022 End: 04-07-2022 ambulatory Gypsy Mcmahon Other [facility] Other Start: 04-07-2022 Office outpatient visit 15 minutes Gypsy Mcmahon [facility] Start: 04-03-2022 End: 04-03-2022 ambulatory Gypsy Mcmahon Other [facility] Other Start: 04-03-2022 Telephone encounter Gypsy Mcmahon [facility] Start: 03-30-2022 End: 03-30-2022 Departed Referred MD Gypsy Mcmahon Work Phone: [facility] [place] Work Phone: Start: 03-30-2022 End: 03-30-2022 ambulatory MD Gypsy Mcmahon Work Phone: [facility] Work Phone: Start: 03-30-2022 Nursing evaluation o f patient and report Gypsy Mcmahon [facility] Start: 03-20-2022 End: 03-21-[address] GYPSY MCMAHON Facility:[facility] Start: 03-19-2022 End: 03-19-2022 ambulatory Hunter Brown Other [facility] Other Start: 03-19-2022 Telephone encounter Hunter brady [facility] Start: 03-11-2022 Registered Recurring MD Gypsy Mcmahon Work Phone: [facility] Work Phone: Start: 02-23-2022 End: 02-24-[address] GYPSY MCMAHON Facility:[facility] Start: 02-19-2022 End: 02-19-2022 ambulatory Gypsy Mcmahon Other [facility] Other Start: 02-19-2022 Telephone encounter Gypsy Mcmahon [facility] Start: 02-17-2022 End: 02-18-[address] GYPSY MCMAHON Facility:[facility] Start: 02-16-2022 End: 02-16-2022 ambulatory Gypsy Mcmahon Other [facility] Other Start: 02-16-2022 Office outpatient visit 15 minutes Gypsy Mcmahon [facility] Start: 02-16-2022 End: 02-16-2022 Departed Referred MD Gypsy Mcmahon Work Phone: [facility] [place] Work Phone: Start: 02-11-2022 End: 02-11-2022 ambulatory Hunter Brown Other [facility] Other Start: 02-11-2022 Office outpatient visit 15 minutes Hunter Brown [facility] Start: 02-11-2022 Telephone encounter Hunter brady [facility] Start: 01-26-2022 End: 01-27-[address] GYPSY MCMAHON Facility:[facility] Start: 01-15-2022 End: 01-16-[address] GYPSY MCMAHON Facility:[facility] Start: 01-06-2022 End: 01-06-2022 ambulatory Hunter Brown Other [facility] Other Start: 01-06-2022 Telephone encounter Hunter brady [facility] Start: 01-05-2022 End: 01-06-2022 ambulatory CLAU Shrestha [facility] [employer] Other Start: 01-05-2022 Office outpatient visit 25 minutes Hunter Brown [facility] Start: 12-27-2021 End: 12-27-[address] REY MONTGOMERY Facility:[facility] Start: 12-18-2021 End: 12-19-2021 ambulatory CLAU NASCIMENTO Facility:[facility] Start: 12-08-2021 End: 12-09-[address] GYPSY MCMAHON Facility:[facility] Start: 11-18-2021 End: 11-18-2021 ambulatory Hunter Brown Other [facility] Other Start: 11-18-2021 Telephone encounter Hunter brady [...] 08-18-2021 End: 08-18-2021 ambulatory Giana Griffiths Other [facility] Other Start: 08-18-2021 Telephone encounter Giana Griffiths [facility] Start: 08-12-2021 End: 08-12-[address] GYPSY MCMAHON Facility: Start: 04-22-2021 End: 04-22-2021 ambulatory Giana Jfluis Other [facility] Other Start: 04-22-2021 Telephone encounter Giana Jfluis [facility] Start: 03-27-2021 End: 03-27-2021 ambulatory Giana Jian Other [facility] Other Start: 03-27-2021 Office outpatient visit 25 minutes Giana Jfluis [facility] Start: 01-27-2021 End: 01-27-2021 ambulatory Giana Jfluis Other [facility] Other Start: 01-27-2021 Office outpatient visit 25 minutes Giana Jian [facility] Start: 01-27-2021 Telephone encounter Giana Griffiths [facility] Procedures Date Procedure Procedure Detail Performing [...] tape MALATHI VIEIRA Start: 07-25-2009 Urodynamic studies CMAMY VIEIRA Bilateral cataracts (disorder) MALATHI VIEIRA Coronary artery bypa ss grafts x 4 MALATHI VIEIRA Excision of sphincte r of anus MALATHI VIEIRA Gallbladder structur e (body structure) MALATHI VIEIRA History of total hysterectomy MALATHI VIEIRA Knee region structur e (body structure) MALATHI VIEIRA Plan of Treatment Date Care Activity Detail Author Start: 03-30-2022 Bacteria identified in Urine by Culture [facility] Bacteria identified in Stool by Culture [facility] Bacteria identified in Urine by Culture [facility] Elastase.pancreatic [Mass/mass] in Stool [facility] Patient referral [facility] Work Phone: [facility] Immunizations Immunization Date Immunization Notes Care Provider Bob henry 02-16-2022 Shingrix 50 MCG/0.5M L; Translations: [Shingrix 50 MCG/0.5ML] Hunter Brown Other [facility] Other 01-15-2022 influenza virus vaccine, unspecified formulation MALATHI VIEIRA [facility] 01-15-2022 SARS-CoV-2 (COVID-19 ) [id number] MALATHI VIEIRA [facility] 01-23-2021 SARS-CoV-2 (COVID-19 ) mRNA BNT-162b2 vax MALATHI DEB [facility] 01-06-2021 influenza virus vaccine, unspecified formulation MALATHI DEB [facility] 03-27-2020 SARS-CoV-2 (COVID-19 ) mRNA BNT-162b2 vax MALATHI DEB [facility] 03-04-2020 SARS-CoV-2 (COVID-19 ) mRNA BNT-162b2 vax MALATHI DEB [facility] 12-06-2019 influenza virus vaccine, unspecified formulation MALATHI DEB [facility] 12-14-2018 influenza virus vaccine, unspecified formulation MALATHI DEB [facility] 02-02-2018 influenza virus vaccine, unspecified formulation MALATHI DEB [facility] 11-08-2017 pneumococcal polysaccharide vaccine, 23 valent MALATHI DEB [facility] 11-02-2017 influenza virus vaccine, unspecified formulation MALATHI DEB [facility] 12-09-2016 influenza virus vaccine, unspecified formulation MALATHI DEB [facility] 12-02-2016 influenza virus vaccine, unspecified formulation MALATHI DEB [facility] 12-17-2015 influenza virus vaccine, unspecified formulation MALATHI DEB [facility] 10-10-2015 influenza virus vaccine, unspecified formulation MALATHI VIEIRA [facility] 11-19-2014 influenza virus vaccine, unspecified formulation MALATHI VIEIRA [facility] 11-09-2014 pneumococcal polysaccharide vaccine, 23 valent MALATHI VIEIRA [facility] NEGATED: Highlighted row has not occurred!01-26-2023 influenza virus vaccine, unspecified formulation MALATHI VIEIRA [facility] Payers Date Payer Category Payer Self-pay [id number] 1958 [facility] [id number] 1958 Medicare [id number] 2.1 [id number] 1936 Unknown [id number] 2.16.84 0.1.687622.3.579.2.593 1936 Unknown [id number] 2.16.84 0.1.037490.3.579.2.593 1936 Unknown [id number] 2.16.84 0.1.174620.3.579.2.593 1936 Unknown [id number] 2.16.84 0.1.595059.3.579.2.593 1936 Unknown [id number] 2.16.84 0.1.471162.3.579.2.593 1936 Unknown [id number] 2.16.84 0.1.797080.3.579.2.593 1936 Unknown [id number] 2.16.84 0.1.360785.3.579.2.593 1936 Unknown [id number] 2.16.84 0.1.040046.3.579.2.593 1936 Unknown [id number] 2.16.84 0.1.998764.3.579.2.593 1936 Unknown [id number] 2.16.84 0.1.630836.3.579.2.593 1936 Unknown [id number] 2.16.84 0.1.383658.3.579.2.593 1936 Unknown [id number] 2.16.84 0.1.195931.3.579.2.593 1936 Unknown [id number] 2.16.84 0.1.447084.3.579.2.593 1936 Unknown [id number] 2.16.84 0.1.222370.3.579.2.593 1936 Unknown [id number] 2.16.84 0.1.155557.3.579.2.593 1936 Unknown [id number] 2.16.84 0.1.207305.3.579.2.593 1936 Unknown [id number] 2.16.84 0.1.664262.3.579.2.593 1936 Unknown [id number] 2.16.84 0.1.431575.3.579.2.593 1936 Unknown [id number] 2.16.84 0.1.184018.3.579.2.593 1936 Unknown [id number] 2.16.84 0.1.384152.3.579.2.593 1936 Unknown [id number] 2.16.84 0.1.260931.3.579.2.593 1936 Unknown [id number] 2.16.8 40.1.961570.3.579.2.1286 1936 Unknown [id number] 2.16.8 40.1.866948.3.579.2.1286 1936 Unknown [id number] 2.16.8 40.1.079819.3.579.2.727 1936 Unknown [id number] 2.16.8 40.1.651931.3.579.2.727 1936 Unknown [id number] 2.16.8 40.1.916544.3.579.2.727 1936 Unknown [id number] 2.16.8 40.1.479640.3.579.2.727 Unknown [id number] 2.16.8 40.1.791836.3.579.2.531 Unknown [id number] 2.16.8 40.1.339827.3.579.2.531 Social History Date Type Detail Facility Unknown if ever smoked [facility] Other Sex Assigned At [facility] Start: 1935 Sex Assigned At Female F [facility] Start: 05-19-2022 End: 06-09-2022 Tobacco smoking status Ex-smoker (finding) [facility] Start: 09-22-2022 Tobacco smoking status Never [facility] Start: 05-05-2023 Tobacco smoking stat [facility] Never smoked tobacco (finding) [facility] Functional Status Date Assessment Result Facility 01-26-2023 Functional Status N/A [facility] 09-22-2022 Functional Status N/A [facility] 06-09-2022 Functional Status N/A [facility] 05-19-2022 Functional Status N/A [facility] Clinical Notes 01-27-2021 to 03-12-2023 Note Date & Type Note Facility 03-12-2023 Evaluation note Encounter Date Diagnosis Assessment Notes Mar, 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 Preventative measures were discussed. Vitamin C lguo-sgl-assqjha recommended as well as topical Thera workx [...] n due to immunosuppression (ICD-10 - Z91.89) [facility] Other 01-09-2024 Evaluation note* Encounter Date Diagnosis [...] pain. Feb, Pain, unspecified (ICD-10 - R52) [facility] Other 12-19-2023 Hospital Discharge instructions Patient Education 01/26/2023 16:05:17 Urinary Tract Infection, Adult, Tcxa-ke-Yreu Urinary Tract Infection, Adult A urinary tract [...] Follow these instructions at home: Medicines Take uysb-rau-fgmxdsc and prescription medicines only as told by [...] provider. Document Revised: 09/06/2020 Document Reviewed: 09/06/2020 [email or web address] Patient Education 2022 [employer]. Follow Up Care 06/09/2022 14:50:19 With:MALATHI VIEIRA PA-C, URL Address: [address] [place] [address] [phone] When: Unknown Comments:f/u in [place] [facility] Tatyana 12-13-2023 Evaluation note* Encounter Date Diagnosis Assessment Notes Treatment Notes Treatment Clinical Notes Jan, Diarrhea (ICD-10 - R19.7) [facility] Other 12-05-2023 Evaluation note* Encounter Date Diagnosis [...] a day, we will re-test for C-diff [facility] Other 11-28-2023 Evaluation note* Encounter Date Diagnosis Assessment Notes Treatment Notes Treatment Clinical Notes Dec, Clostridium difficile colitis (ICD-10 - A04.72) Finish meds as prescribed. (cipro, Flagyl) Followup w Dr. Brown as scheduled. Understands the c diff could recur. Followup as needed Discussed good nutrition and healthy diet. [facility] Other 11-20-2023 Evaluation note* Encounter Date Diagnosis Assessment Notes Treatment Notes Treatment Clinical Notes Dec, Diarrhea, unspecified type (ICD-10 - R19.7) Pt appears to be having secondary from viral infection. There is no abdominal pain on exam and pt is afebrile which is reassuring. C. diff infection is a possibility as she was recently treated [facility] antibitics for a UTI, will check stool [...] Pt understands and agrees with the plan. [facility] Other 11-07-2023 Evaluation note* Encounter Date Diagnosis Assessment Notes Treatment Notes Treatment Clinical Notes Dec, Frequent UTI (ICD-10 - N39.0) [facility] Other 11-07-2023 Evaluation note* Encounter Date Diagnosis [...] w Dr. Licea today. Consider PT at [facility] or the [place]. [facility] [...] Rfl: miscellaneous medical supply (Blood Pressure Cuff) [facility], 1 kit in the morning and at [...] - Uncon (more content not included)...[facility]08-15-2023 Hospital Discharge instructions Patient Education 09/22/2022 15:32:53 Urinary Tract Infection, Adult, Yjoi-wv-Zdye Urinary Tract Infection, Adult A urinary tract [...] Follow these instructions at home: Medicines Take rmjb-oov-smaohjv and prescription medicines only as told by [...] provider. Document Revised: 09/06/2020 Document Reviewed: 09/06/2020 [email or web address] Patient Education 2022 [employer]iahe. Follow Up Care 09/22/2022 10:38:22 With:DEB ZAZUETA, MALATHI Olvera, URL Address: [address] [place] [phone] When: Unknown [facility] 08-03-2023 Evaluation note* Encounter Date Diagnosis Assessment Notes Treatment Notes Treatment Clinical Notes Sep, Dysuria (ICD-10 - R30.0) [facility] Other 08-01-2023 Evaluation note* Encounter Date Diagnosis Assessment Notes Treatment Notes Treatment Clinical Notes Sep, Microscopic colitis, unspecified microscopic colitis type (ICD-10 - K52.839) [facility] Other 07-25-2023 Evaluation note* Encounter Date Diagnosis Assessment Notes Treatment Notes Treatment Clinical Notes Aug, Frequent UTI (ICD-10 - N39.0) Continue estrogen cream. Review with Urology on her followup appt. Discussed causes of UTIs Aug, Lymphocytic colitis (ICD-10 - K52.832) Improved with GI at [facility]. 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 Barry. Reviewed medications and explained their purpose. [facility] Other 07-20-2023 Evaluation note* Encounter Date Diagnosis Assessment Notes Treatment Notes Treatment Clinical Notes Aug, Recurrent UTI (ICD-10 - N39.0) [facility] Chief Complaint: [...] asked her to discuss this with her vascular technologist. Depending on the risk-benefit ratio will consider starting 1 or the other. She is on Zocor which is not ideal. If her cholesterol is not controlled, would suggest switching her to 40 mg of Lipitor or 20 mg of Crestor. Follow-up in 6 months or sooner should problems arise or her stress test revealed ischemia Jake Barry MD, MPH, [facility], [facility], [facility] Interventional Cardiology Pager Email: [email or web address]05-02-2023 Hospital Discharge instructions Patient Education 06/09/2022 14:15:56 Urinary Tract Infection, Adult, Mhdu-rk-Fsjv Urinary Tract Infection, Adult A urinary tract [...] Follow these instructions at home: Medicines Take odyv-njz-xmrgzwe and prescription medicines only as told by [...] provider. Document Revised: 09/06/2020 Document Reviewed: 09/06/2020 [email or web address] Patient Education 2022 Jiahe. Follow Up Care 06/01/2022 10:03:13 With:CHER KRISHNAN, Marvin Camacho, URL Address: [facility] [address] [place] [phone] When:10/10/2022 [facility] 04-11-2023 Hospital Discharge instructions Patient Education [...] Treatment for this condition includes: Antibiotic medicine. Oion-tms-shwwypg medicines to treat discomfort. Drinking enough water [...] Follow these instructions at home: Medicines Take uajr-gpy-gktvpgd and prescription medicines only as told by [...] 11/04/2005 Document Revised: 01/12/2019 Document Reviewed: 08/04/2018 [email or web address] Patient Education 2020 Jiahe. Follow Up Care 04/20/2022 10:50:51 With:MALATHI VIEIRA PA-C, URL Address: [address] [place] [address] When: Unknown [facility] Evaluation note* Encounter Date Diagnosis Assessment Notes Treatment Notes Treatment Clinical Notes May, Frequent UTI (ICD-10 - N39.0) [facility] Other 03-24-2023 Evaluation note* Encounter Date Diagnosis [...] back this morning. antibiotic at her pharmacy. [facility] Other 03-17-2023 Evaluation note* Encounter Date Diagnosis Assessment Notes Treatment Notes Treatment Clinical Notes Apr, Lymphocytic colitis (ICD-10 - K52.832) Continue Entyvio as directed Continue Lotronex 0.5 mg 1/2 tablet daily Rto 4 months [facility] Other 03-09-2023 Evaluation note* Encounter Date Diagnosis Assessment Notes Treatment Notes Treatment Clinical Notes Apr, Acute cystitis without hematuria (ICD-10 - N30.00) [facility] Other 02-28-2023 Evaluation note* Encounter Date Diagnosis Assessment Notes Treatment Notes Treatment Clinical Notes Mar, Recurrent UTI (ICD-10 - N39.0) Discussed options. Will try estrogen cream for vaginal health. Denies personal history of female cancers. Will also set up w Urology Mar, Colitis (ICD-10 - K52.9) Further treatment with Dr. Manny freed appt on 04/24 [facility] Other 02-20-2023 Evaluation note* Encounter Date Diagnosis Assessment Notes Treatment Notes Treatment Clinical Notes Mar, Dysuria (ICD-10 - R30.0) [facility] Other 01-09-2023 Evaluation note* Encounter Date Diagnosis Assessment Notes Treatment Notes Treatment Clinical Notes Feb, Acute cystitis without hematuria (ICD-10 - N30.00) Sent to [facility] for urine culture - will treat based on results. Feb, Encounter for immunization (ICD-10 - Z23) Feb, Microscopic colitis, unspecified microscopic colitis type (ICD-10 - K52.839) Keep appt w Dr. Brown. Discussed boost or other supplement to gain weight Feb, Gastric ulcer (ICD-10 - K25.9) Encouraged her to continue pantoprazole [facility] Other 01-04-2023 Evaluation note* Encounter Date Diagnosis Assessment Notes Treatment Notes Treatment Clinical Notes Feb, Lymphocytic colitis (ICD-10 - K52.832) Start Entyvio infusions every 8 weeks Continue Budesonide, Alosetron, Imodium, and Pepto for now until starting Entyvio. Pt to keep record of bowel movements - how many and consistency Follow up in 2 months Feb, Fecal incontinence (ICD-10 - R15.9) [facility] Other 11-28-2022 Evaluation note* Encounter Date Diagnosis [...] Pantoprazole as prescribed Okay to stop Sucralfate [facility] Other 09-25-2022 NoteOPERATIVE NOTE OPERATION DATE: 11/04/2021 [...] bowel syndrome with diarrhea (ICD-10 - K58.0) [employer] [facility] [employer] Other 12-20-2021 Evaluation note* Encounter Date Diagnosis Assessment Notes Treatment Notes Treatment Clinical Notes Jan, Microscopic colitis, unspecified microscopic colitis type (ICD-10 - K52.839) START COLESIPOL 2 PO DAILY CONTINUE BUDESONIDE WITHOUT CHANGE 3 PO Q AM AND MAYBE CONSIDERING STOP THIS IF COLESTIPOL IS WORKING ENOUGH TO CONTROL HER SYMPTOMS [facility] Other 12-20-2021 Evaluation note* Encounter Date Diagnosis Assessment Notes Treatment Notes Treatment Clinical Notes Jan, Microscopic colitis, unspecified microscopic colitis type (ICD-10 - K52.839) [facility] Other Evaluation + Plan note No data available for this section [facility] evaluation + Plan note Future Appointments Appointment Date:10/27/2022 01:00:00 PM Scheduled Provider:MALATHI VIEIRA PA-C Location:[facility] Appointment Type:URO Office Visit [facility] Evaluation + Plan note Future Appointments Appointment Date:12/29/2022 01:00:00 PM Scheduled Provider:MALATHI VIEIRA PA-C Location:[facility] Appointment Type:URO Office Visit [facility] evaluation + Plan note Future Appointments Appointment Date:06/15/2023 02:00:00 PM Scheduled Provider:MALATHI VIEIRA PA-C Location:[facility] Appointment Type:URO Office Visit [facility] evaluation + Plan note Future Appointments Appointment Date:01/30/2023 10:30:00 AM Scheduled Provider: Location:[facility] Appointment Type:ASU IV Antibiotic (FT) Appointment Date:01/31/2023 10:30:00 AM Scheduled Provider: Location:[facility] Appointment Type:ASU IV Antibiotic (FT) Appointment Date:02/01/2023 10:30:00 AM Scheduled Provider[facility] App[facility] Type:ASU IV Antibiotic (FT) Appointment Date:02/02/2023 10:30:00 AM Scheduled Provider: Location:[facility] Appointment Type:ASU IV Antibiotic (FT) Appointment Date:02/03/2023 10:30:00 AM Scheduled Provider: Location:[facility] Appointment Type:ASU IV Antibiotic (FT) Appointment Date:02/04/2023 10:30:00 AM Scheduled Provider: Location:[facility] Appointment Type:ASU IV Antibiotic (FT) Appointment Date:06/15/2023 02:00:00 PM Scheduled Provider:MALATHI VIEIRA PA-C Location:[facility] Appointment Type:URO Office Visit [facility] noteNo InformationNorth [employer] Other Evaluation noteNo assessment information available [facility] Work Phone: Evaluation note* Diagnosis Onset Date Resolution Status Recurrent Clostridioides difficile diarrhea acute [facility] Work Phone: Evaluation note* Diagnosis Onset Date Resolution Status Recurrent Clostridioides difficile diarrhea acute Diarrhea acute Microscopic colitis acute Recurrent Clostridioides difficile diarrhea acute Recurrent UTI acute [facility] Work Phone: Hismrwk general Narrative - Reported* Type Description Date Medical History HTN Medical History hyperlipidemia Medical History microscopic colitis Surgical History T&A Surgical History Quad by-pass Surgical History total hysterectomy Surgical History gall bladder Surgical History Cataracts Surgical History Right Knee Scope Surgical History Sphincterectomy Surgical History Left Rotator Scope Surgical History Hernia Repair 03/24/2012 Hospitalization History See Surgical Hx [facility] Other Hisoxuv general Narrative - Reported* Type Description Date [...] Hospitalization History See Surgical Hx Hospitalization History [facility] 12/2022 [facility] Other Hisswlx general Narrative - Reported* Type Description Date [...] Hospitalization History See Surgical Hx Hospitalization History [facility] 12/2022 [facility] Other Hisoapo general Narrative - Reported* Type Description Date [...] Hospitalization History See Surgical Hx Hospitalization History [facility] 12/2022 [facility] Other History general Narrative - Reported* Type [...] Hospitalization History See Surgical Hx Hospitalization History [facility] 12/2022 [facility] Other Hospital Discharge instructions No data available for this section [facility] data available for this section [facility] Summary Purpose Family History No Family History [...] November 22, 2017 10:57am Hospital Course Note [facility]charge Summary PERSON INFORMATION Name VINCENT HSU Age 83 Years 1935 Sex FEMALE Language Setswana PCP Lisandro KRISHNAN, Gypsy Olvera Marital Status Med Service Med/Surg Acct# Arrival 09/25/2019 06:52:00 Visit Reason SURGERY - LEFT TOTAL HIP Acuity [facility] Address: [address] [place] [address] Comment: PROVIDER INFORMATION VITALS INFORMATION Vital Sign [...] Recurrent UTI Reason for Referral Reason DUPLICATE [place] office - frequent UTIs. Diagnosis 1 Frequent UTI (N39.0) Referral Organization [facility] Referring Provider First Name Gypsy Referring Provider Last Name Lisandro Referring Provider [facility] [employer] Referred [facility] Referred Provider Beau Hernandez Referred Address [address],[place], [place],[address] Referred Provider Specialty Urology Referral Priority Routine General Notes Tatyana Bojorquez 01:56:52 PM >received today Tatyana Bojorquez 05/14/2022 02:02:41 PM >attachments made, notes locked, referral faxed Tatyana Bojorquez 05/14/2022 03:25:50 PM >DUPLICATE REFERRAL Reason *FU 04/28 [place] office - recurrent UTIs. Diagnosis 1 Recurrent UTI (N39.0 ) Referral Organization [facility] jah Referring Provider First Name Gypsy Referring Provider Last Name Lisandro Referring Provider [facility] [employer] [facility] Referred Provider Gerson Juárez Referred Address [address] [place],[address] Referred Provider Specialty Urology Referral Priority Routine [...] and content) DATE CREATED AUTHOR 09/17/2018 [facility] DATE CREATED AUTHOR AUTHOR'S ORGANIZ ATION 10/30/2019 [facility] DATE CREATED AUTHOR AUTHOR'S ORGANIZ ATION 05/31/2022 [facility] DATE CREATED AUTHOR AUTHOR'S ORGANIZ ATION 11/15/2022 [facility] DATE CREATED AUTHOR AUTHOR'S ORGANIZ ATION 05/30/2023 [facility] DATE CREATED AUTHOR AUTHOR'S ORGANIZ ATION 06/19/2023 [facility] DATE CREATED AUTHOR AUTHOR'S ORGANIZ ATION [facility]2023 [facility] DATE CREATED AUTHOR AUTHOR'S ORGANIZ ATION 07/29/2023 [facility] REASON FOR VISIT (unrecogniz ed section [...] on alosetron, Patient was recently inpatient at [facility] and was diagnosed with gastric ulcerPRESCRIPTIONPATIENT HERE FOR 1 MONTH FOLLOW UP LYMPHOCYTIC COLITIS.No InformationEntyvioCheck upREFILLUANo Informationurine cultureDISCUSSIONurine culturereferralPATIENT HERE FOR 2 MONTH FOLLOW UPupset stomach, vomiting and diarrheautiurine culturerefillmedication discussREFILLSUA-ConfusionRefillTBHNot Feeling WellUpdateTCHelen [facility] follow uprecent admissionPatient here for 3 [...] Member Role Status Dates Malathi Velázquez APRN [employer]-C Attending Provider Act jamar Start: December 28, [...] BE BASED ON THE PRIMARY CLINICAL RECORDS. [facility] [employer] [facility]. provides no warranty or guarantee of the accuracy or completeness of information in this document.
== END 2023-08-30 15:53 | disposition home or self-care (01) ==
LOC: WC 15:54
PROVIDERS: PCP Family Medicine; Visit Provider Physician Assistant
DX: I87.311 Chronic venous hypertension (idiopathic) with ulcer of right lower extremity (principal); L97.812 Non-pressure chronic ulcer of other part of right lower leg with fat layer exposed; L97.911 Non-pressure chronic ulcer of unspecified part of right lower leg limited to breakdown of skin; L97.411 Non-pressure chronic ulcer of right heel and midfoot limited to breakdown of skin
CPT/HCPCS: G0463

== ENCOUNTER 2023-09-03 13:03 | Outpatient (OUT) | payer MEDICARE, BC, SELFPAY ==
[2023-09-03 13:49] LABS: Anion Gap 13.2; BUN Creatinine Ratio 20.4; Calcium 9.8 mg/dL (8.5-10.1); Carbon Dioxide 27.8 mmol/L (21.0-32.0); Chloride 106 mmol/L (98-107); Estimated GFR (African America 42 (>=60); Estimated GFR (Non-African Ame 35 (>=60); Glucose 94 mg/dL (74-106); Sodium 143 mmol/L (136-145)
[2023-09-04 04:08] LABS: Vitamin B12 357 pg/mL (232-1245)
[2023-09-05 11:07] LABS: PTH, Intact 31 pg/mL (15-65)
== END 2023-09-03 13:04 | disposition home or self-care (01) ==
LOC: LAB 13:05
PROVIDERS: PCP Family Medicine; Visit Provider Family Medicine
DX: E83.52 Hypercalcemia (principal); D64.9 Anemia, unspecified
CPT/HCPCS: 36415; 80048; 82607; 82746; 83970

== ENCOUNTER 2023-09-10 11:42 | Outpatient (OUT) | payer MEDICARE, BC, SELFPAY ==
--- NOTE | 2023-09-10 | XR_ITS ---
The [address] [address] Patient Name: SAGE HSU MRN: [id number] date: 1935 Sex: F Assigned Patient Location: Current Patient Location: Accession/Order Number: [id number] Exam Date: 09/10/2023 12:20 Report Date: 09/11/2023 06:07 At the request of: CLAU NASCIMENTO Procedure: XR ankle RT min 3V PROCEDURE: XR ankle RT min 3V HISTORY: RIGHT ANKLE PAIN ; stress fracture? COMPARISON: None. FINDINGS: BONES:No fracture, acute abnormality, or significant arthropathy. SOFT TISSUES:Mild soft tissue swelling surrounding the ankle. EFFUSION:None visible. OTHER: Negative. XR/XR ankle RT min 3V IMPRESSION: 1. No acute bone abnormality or evidence of stress fracture. Electronically authenticated by: NICOLA ALEXANDER Date: 09/11/2023 06:07
== END 2023-09-10 11:43 | disposition home or self-care (01) ==
LOC: WC 11:42
PROVIDERS: PCP Family Medicine; Visit Provider Podiatrist Foot & Ankle Surgery
DX: M25.571 Pain in right ankle and joints of right foot (principal); I87.311 Chronic venous hypertension (idiopathic) with ulcer of right lower extremity; L97.812 Non-pressure chronic ulcer of other part of right lower leg with fat layer exposed; L97.911 Non-pressure chronic ulcer of unspecified part of right lower leg limited to breakdown of skin; L97.411 Non-pressure chronic ulcer of right heel and midfoot limited to breakdown of skin
CPT/HCPCS: 73610; G0463

== ENCOUNTER 2023-09-15 13:24 | Outpatient (REF) | payer MEDICARE, BC, SELFPAY ==
[2023-09-15 13:48] LABS: Bilirubin Urine NEGATIVE (NEGATIVE); Blood Urine NEGATIVE (NEGATIVE); Clarity Urine SL CLOUDY (CLEAR); Color Urine YELLOW (YELLOW); Glucose Urine UA NEGATIVE (NEGATIVE); Ketones Urine NEGATIVE (NEGATIVE); Leukocyte Esterase Urine NEGATIVE (NEGATIVE); Nitrite Urine NEGATIVE (NEGATIVE); Protein Urine NEGATIVE (NEG/TRACE); Specific Gravity Urine 1.025 (1.005-1.025); Urobilinogen Urine 0.2 EU/dL (0.2-1.0); pH Urine 5.5 (5.0-9.0)
== END 2023-09-15 13:25 | disposition home or self-care (01) ==
LOC: LAB 13:24
PROVIDERS: PCP Family Medicine; Visit Provider Internal Medicine Infectious Disease
DX: N39.0 Urinary tract infection, site not specified (principal)
CPT/HCPCS: 81003

== ENCOUNTER 2023-09-16 09:51 | Outpatient (OUT) | payer MEDICARE, BC, SELFPAY ==
--- NOTE | 2023-09-16 09:58 | US_ITS ---
The [address] [address] Patient Name: SAGE HSU MRN: [id number] date: 1935 Sex: F Assigned Patient Location: [place] Current Patient Location: [place] Accession/Order Number: [id number] Exam Date: 09/16/2023 10:00 Report Date: 09/16/2023 12:32 At the request of: CLAU NASCIMENTO Procedure: US arterial duplex LE BI EXAM: US arterial duplex LE BI. HISTORY: Ulcer, Peripheral Artery Disease. COMPARISON: None. TECHNIQUE: Alcantar-scale, color Doppler, spectral Doppler waveform analysis was used to evaluate the bilateral lower extremity arteries. FINDINGS: Plaque was noted bilaterally. Color-flow was seen. Waveforms are monophasic. Right lower extremity: No significant velocity elevations were seen to suggest a significant stenosis. Left lower extremity: Elevated velocity was seen within the mid and distal left superficial femoral artery suggesting a significant stenosis. No flow is visualized within the midportion of the left anterior tibial artery. US/US arterial duplex LE BI IMPRESSION: 1. Calcified plaque bilaterally. 2. Monophasic waveforms throughout. Inflow disease cannot be excluded. 3. 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 4. Probable significant stenosis within the mid and distal left superficial femoral artery as evidenced by elevated velocity. Electronically authenticated by: Fernando ALVA Date: 09/16/2023 12:32
--- OUTSIDE RECORDS SUMMARY | 2023-09-16 09:59 | XMS_ITS | CCD ---
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 Name Role Phone Giana Griffiths Unavailable Hunter Brown Unavailable MD Gypsy Mcmahon Primary Care Provider MD Gypsy Mcmahon Attending Provider [phone] MD Hunter Brown Attending Provider [phone] Gypsy Mcmahon Unavailable GYPSY MCMAHON Primary Care [...] Primary Care Unavailable Jose G Ellington Unavailable [facility] Attending Unavailable [place] Attending Unavailable Malathi Velázquez Unavailable MD Jacinto Max Attending Provider [phone] MD Jacinto Max Referring Provider [phone] MD Gypsy Mcmahon Primary Care Provider Jacinto Max Unavailable MD Jacinto Max Attending Provider MD Jacinto Max Referring Provider [phone] MD Gypsy Mcmahon Primary Care Provider TuDO [...] Drug Allergy 02-04-20 13 anaphylaxis, Anaphylaxis (disorder) [facility] (20 sources) histamines Drug allergy Unknown [employer] Other (9 sources) Histamine H2 Inhibitors; Translations: [Histamine H2 Inhibitors] Allergy to substance 07-16-19 13 Unknown Reaction [facility] (20 sources) levoFLOXacin; Translations: [levofloxacin] Drug Allergy 07-01-19 23 Tremor (finding) [facility] (1 source) diphenhydrAMINE Drug Allergy 04-20-19 [facility] (1 source) ezetimibe Drug Allergy 04-20-19 20 [facility] (1 source) Gemfibrozil Drug Allergy 04-20-19 [facility] (2 sources) Levamisole; Translations: [Phenergan] Drug Allergy 07-16-19 13 [facility] (1 source) NSAIDs Drug allergy (disorder) 04-20-19 [facility] (1 source) Nasal Decongestant Drug allergy (disorder) 04-20-19 [facility] (1 source) Darvocet-N 100 Drug allergy (disorder) 04-20-19 [facility] (11 sources) diphenhydrAMINE; Translations: [diphenhydramine] Drug Allergy jumpy,, Unknown [facility] (14 sources) Penicillin; Translations: [penicillin] Drug Allergy Eruption of skin (disorder) [facility] (1 source) Histamine; Translations: [HISTAMINE] Drug Allergy 02-04-20 13 [facility] (4 sources) Penicillins; Translations: [Penicillins] Propensity to adverse reactions 02-25-19 24 Rash [facility] (2 sources) Antihistamines Allergy to substance 02-26-19 Unknown Reaction [facility] (1 source) Promethazine Drug Allergy 12-07-19 18 [facility] Medications Current Medications Medication Drug Class(es) [...] capsule (2 sources) Start: 04-15-2023 lactobacillus acidophilus [id number] unt oral tablet (2 sources) take 1 [...] procedure, # 2 cap(s), Refills(s) 0, Pharmacy: [facility]/pharmacy #[id number], 178, cm, 05/19/22 13:31:00 [...] Start: 01-26-2023 take 1 capsule by mo [facility] every twenty-four hours Vancomycin HCl 250 MG [...] disease (20 sources) Atherosclerotic heart disease of [place] coronary artery without angina pectoris; Translations: [Coronary [...] 02-04-2022 Chronic Other aftercare (1 source) 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; Translations: [OTH JAIL CURRENT DRUG THERAPY] Onset: 03-24-2022 Episodic Other [...] and visceral atherosclerosis (16 sources) 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; Translations: [Atherosclerosis of [place] arteries of left leg with ulceration of [...] Onset: 11-02-2021 Episodic Other aftercare (1 source) 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; Translations: [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] Onset: 11-10-2021 Episodic [...] Range Facility [facility] 07-27-2023 Lab Reports [id number]#1.00TIFF Normal [facility] Lab Reports [id number]#1.00TIFF Normal [facility] Blood Urea Nitrogenon 2023 Urea nitrogen [Mass/Vol] 16 mg/dL Normal 7-25 [facility] Comment on above: Order Comment: STAT FOR CT Performed By: #### B ANNE MARIE SHARMA #### [place] [id number] [facility] CT abdomen pelvis w conon CT abdomen pelvis w con [facility] Main [place] [id number] Scan Report Signed Patient: Vincent Hsu MR#: [id number] 4 : 1935 Acct:[id number] Age/Sex: 87 / F ADM Date: 05/28/23 Loc: CT Room: Type: [facility] Attending Dr: Monie Wallace DO Copies [...] Signed By: 05/28/23 1334 Normal [facility] Creatinineon 05-28-2023 Creatinine [Mass/Vol] 1.07 mg/dL Normal 0.60-1.20 [facility] Comment on above: Order Comment: STAT FOR CT Performed By: #### B UN, CREAT #### [facility] [address] [place] [address] [place] GFR/1.73 sq M.predicted MDRD (S/P/Bld) [Vol rate/Area] 50.587 mL/min/{1.73_m2} Normal [facility] Comment on above: Order Comment: STAT FOR CT Result Comment: PERF ORMED BY: [place] [address] PATHOLOGIST MATHEMATICS TECHNICIAN TIEN VELASQUEZ M.D. Performed By: #### B UN, CREAT #### [facility] [address] [place] [address] Creatinine [Mass/volume] in Serum or PlasmaOrdered By: Monie Wallace on 05-28-2023 Creatinine [Mass/Vol] 1.07 mg/dL 0.60-1.20 [facility] No Panel InformationOrdered By: Monie Wallace on 05-28-2023 Estimated GFR (CKD-EPI) 50.587 mL/Min [facility] Creatinine Clearance (Chem N/A [facility] Urea nitrogen [Mass/volume] in Serum or PlasmaOrdered By: Monie Wallace on 05-28-2023 Urea nitrogen [Mass/Vol] 16 mg/dL 7-25 [facility] No Panel InformationOrdered By: Gypsy Mcmahon on 05-25-2023 E coli Shiga Toxin EIA [facility] Salmonella/Shigella Screen [facility] IgA [Mass/volume] in Serum o r Plasmaon 05-24-2023 IgA [Mass/Vol] 64 mg/dL 64-422 [facility] Comment on above: Performed at: JONEL baron [address] [id number] Director: Salomon Mcarthur PhD, Phone: [phone] No Panel Informationon 05-23 Endomysial IgA Antibody Negative Negative [facility] Serum gliadin peptide IgA an tibody assay (units/volume)on 05-24-2023 Gliadin peptide IgA Qn (S) 4 units 0-19 [facility] Comment on above: Negative 0 - 19 Weak Positive 20 - 30 Moderate to Strong Positive >30 Serum gliadin peptide IgG an tibody assay (units/volume)on 05-24-2023 Gliadin peptide IgG Qn (S) 2 units 0-19 [facility] Comment on above: Negative 0 - 19 Weak Positive 20 - 30 Moderate to Strong Positive >30 Serum tissue transglutaminas e (tTG) IgA antibody assay (units/volume)on 05-24-2023 tTG IgA Qn (S) <2 U/mL 0-3 [facility] Comment on above: Negative 0 - 3 Weak Positive 4 - 10 Positive >10 Tissue Transglutaminase (tTG) has been identified as the endomysial antigen. Studies have demonstr- ated that endomysial IgA antibodies have over 99% specificity for gluten sensitive enteropathy. Serum tissue transglutaminas e (tTG) IgG antibody assay (units/volume)on 05-24-2023 tTG IgG Qn (S) <2 U/mL 0-5 [facility] Comment on above: Negative 0 - 5 Weak Positive 6 - 9 Positive >9 [facility] 05-10-2023 Lab Reports [id number]#1.00TIFF Normal [facility] Lab Reports [id number]#1.00TIFF Normal [facility] Lab Reports [id number]#1.00TIFF Normal [facility] Automated urine specific gra vity by refractometryon 05-06-2023 Specific gravity Refractometry automated (U) [Rel density] 1.025 1.005-1.02 5 [facility] Bilirubin Auto test strip (U ) [Mass/Vol]on 05-06-2023 Bilirubin (U) [Mass/Vol] Negative NEGATIVE [facility] Color Auto (U)on 05-06-2023 Color (U) YELLOW YELLOW [facility] Ketones Auto test strip (U) [Mass/Vol]on 05-06-2023 Ketones (U) [Mass/Vol] Negative NEGATIVE [facility] Lab Reportson 05-06-2023 Lab Reports [id number]#1.00TIFF Normal [place] [facility] - Microbiology an d Antimicrobial susceptibilityOrdered By: Gypsy Mcmahon on 05-06-2023 Bacteria identified Cx Nom (U) [facility] Protein Auto test strip (U) [Mass/Vol]on 05-06-2023 Protein (U) [Mass/Vol] Negative NEG/TRACE [facility] Specific gravity Auto test s trip (U) [Rel density]on 05-06-2023 Specific gravity (U) [Rel density] CLEAR CLEAR [facility] Urine glucose measurement by test strip (mass/volume)on 05-06-2023 Glucose Test strip (U) [Mass/Vol] Negative NEGATIVE [facility] Urine hemoglobin detection b y automated test stripon 05-06-2023 Hemoglobin Auto test strip Ql (U) TRACE-I NEGATIVE [facility] Urine nitrite detection by a utomated test stripon 05-06-2023 Nitrite Auto test strip Ql (U) SMALL NEGATIVE [facility] Nitrite Auto test strip Ql (U) Positive NEGATIVE [facility] Urobilinogen Auto test strip (U) [Mass/Vol]on 05-06-2023 Urobilinogen Qn (U) 0.2 {Gen'U}/dL 0.2-1.0 [facility] pH Auto test strip (U)on pH (U) 5.5 [pH] 5.0-9.0 [facility] No Panel Informationon 04-30 Clostridium difficile (PCR)(LAB) Negative NEGATIVE [facility] No Panel Informationon 04-06 Clostridium difficile (PCR)(LAB) Positive Negative [facility] Comment on above: Toxigenic C difficil e: PositiveEpidemic Strain Bl/NAP1/027: Presumptive NegativePerformed at: CB - [facility] [address] [place], [place] [id number] Director: Salomon Mcarthur PhD, Phone: [phone] IntraOperative Documentson 0 02-12-2023 IntraOperative Documents [id number]#1.00TIFF Normal [facility] Physician Orderon 02-12-2023 Physician Order [id number]#1.00TIFF Normal [facility] Physician Order [id number]#1.00TIFF Normal [facility] ED Note-Physicianon 02-05-20 ED Note-Physician [id number]#1.00TIFF Normal [facility] Lab Report[facility] 02-04-2023 Lab Reports [id number]#1.00TIFF Normal [facility] Lab Reports [id number]#1.00TIFF Normal [facility] Lab Reports [id number]#1.00TIFF Normal [facility] Consent for Treatmenton 01-09 Consent for Treatment [id number]#1.00TIFF Normal [facility] Retail - Clinical Noteon Retail - Clinical Note [id number]#1.00TIFF Normal [facility] Report[facility] 01-28-2023 Lab Reports [id number]#1.00TIFF Normal [facility] Physician Orderon 01-28-2023 Physician Order [id number]#1.00TIFF Normal [facility] Urology Office/Clinic Noteon 01-27-2023 Urology Office/Clinic [...] Urnls Dip Stick Auto w/o Microscopy POC 90316 2. 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 Case discussed w GI, Dr Brown's MANUFACTURING QUALITY ENGINEER Katie. he agrees w above plan. 3. [...] the risks of side effects etc. Orders: 11313 Measure Post Void residual urine and/or bladder capacity by US- non-imaging Total time spent reviewing previous notes/results/external documents, preparing the chart, conducting the encounter with the patient and family, ordering tests/medications, and documenting the encounter was 40 minutes. Follow-up With When Contact Information MALATHI VIEIRA PA-C, URL [address] [place] [address] [phone] Additional Instructions: f/u in Spring Patient Education Urinary Tract Infection, Adult, Mybv-yx-Shnn Documentation recorded by the scribe Caprice Stratton accurately reflects the services(s) I performed and decisions made by me. Authenticated by Malathi Vieira PA-C on 01/27/2023 13:56:47. I, Caprice Stratton, personally scribed for Malathi Vieira PA-C on (more content not included)... Normal [facility] Comment on above: Result Comment: Elec [...] Urnls Dip Stick Auto w/o Microscopy POC 38077 Your Care Team Attending Physician - MALATHI [...] ZAZUETA, MALATHI Olvera Where: [facility] Patient Educationon 01-27-20 Patient Education Obstetrics [...] these instructions at home: Medicines ? Take cyeo-ubd-jvutwvc and prescription medicines only as told by [...] provider. Document Revised: 09/06/2020 Document Reviewed: 09/06/2020 [employer] Patient Education ? 2022 [employer] [facility] Lab Report[facility] 01-25-2023 Lab Reports [id number]#1.00TIFF [facility] Lab Reports [id number]#1.00TIFF [facility] Lab Reports [id number]#1.00TIFF [facility] Report[facility] 12-03-2022 Lab Reports [id number]#1.00TIFF [facility] Physician Orderon 12-01-2022 Physician Order [id number]#1.00TIFF [facility] Office Visiton 11-11-2022 Follow-up visit [id number] Vincent Hsu 1935 F Date Provider Department Center 11/11/2022 Kulwinder-JAKE [facility]Y [facility] Family History Problem Relation Age of Onset Aneurysm Mother Heart attack Father Family Status - Relation Status Age at Mother Father Level of Service:21116 MI OFFICE/OUTPATIENT ESTABLISHED LOW MDM 20-29 MIN Normal [facility] Lab Reportson 09-25-2022 Lab Reports [id number]#1.00CD:12 7 Normal [facility] Lab Reports [id number]#1.00CD:12 7 Normal [facility] Physician Orderon 09-23-2022 Physician Order [id number]#1.00CD:12 7 Normal [facility] Screenson 09-23-2022 Screens [id number]#1.00CD:12 7 Normal [facility] Ambulatory Visit Summaryon 0 09-22-2022 Ambulatory [...] PA-C, MALATHI E Where: [facility] [place] Normal [facility] Patient Educationon 09-23-19 Patient Education Obstetrics [...] these instructions at home: Medicines ? Take cipd-pcy-psivqri and prescription medicines only as told by [...] Reviewed: 09/06/2020 Elsevier Patient Education ? 2022 [employer] [facility] Urology Office/Clinic Noteon 09-22-2022 Urology Office/Clinic [...] symptoms not resolved. C&S this morning at [facility] ( not finalized) UTI symptoms Memory [...] resolved per daughter. C&S this morning at [facility] (not finalized) - will call pt [...] up having to send a U.Cx to [facility] so we can review the results. [...] When Contact Information MALATHI VIEIRA PA-C, URL [address] [place] [address] Additional Instructions: Patient Education Urinary Tract Infection, Adult, Trvd-yo-Aojo IJazlyn, personally scribed for Malathi Vieira PA-C [...] 3 mg (more content not included)... Normal [facility] Comment on above: Result Comment: Elec tronically Signed By: MALATHI VIEIRA PA-C\.br\Date and Time Signed: 09/22/22 16:16 EDT\.br\Electronically Co-Signed By: Jazlyn Lucero\.br\Date and Time Co-Signed: 09/22/22 15:38 EDT Office Visiton 06-30-2022 Follow-up visit [id number] Vincent Hsu 1935 F Date Provider Department Center 06/30/2022 Kulwinder-JAKE BARRY C[facility] [place] [facility] Family History Problem Relation Age of Onset Aneurysm Mother Heart attack Father Family Status - Relation Status Age at Mother Father Level of Service:89544 MI OFFICE/OUTPATIENT NEW MODERATE MDM 45-59 MINUTES Normal [facility] CT ABD/PELVIS WO CONon 05-27 CT [...] MI NUÑEZ Date: 2022-05-27 10:34 Normal [facility] CULTURE URINEon 05-14-2022 CULTURE [...] Trimethoprim/Sulfamethoxa zole <=20 S F Normal [facility] Comment on above: Performed By: #### U RCX #### [facility] [address] [place], [place] [address] Dr. Anthony Bonilla UA RANDOMon 05-11-2022 Bilirubin Ql (U) Negative Normal NEGATIVE [facility] Comment on above: Performed By: #### U RCX #### [facility] [address] [place], [place] [address] Dr. Anthony Bonilla Clarity (U) SL CLOUDY Abnormal CLEAR [facility] Comment on above: Performed By: #### U RCX #### [facility] [address] [place] [address] [address] Anthony Bonilla Color (U) LT. YELLOW Normal YELLOW [facility] Comment on above: Performed By: #### U RCX #### [facility] [address] [address] [address] Anthony Bonilla Glucose Ql (U) Negative Normal NEGATIVE [facility] Comment on above: Performed By: #### U RCX #### [facility] [address] [place] [address] Dr. Anthony Bonilla Hemoglobin Ql (U) Negative Normal NEGATIVE [facility] Comment on above: Performed By: #### U RCX #### [facility] [address] [place] [address] Dr. Anthony Bonilla Ketones Ql (U) Negative Normal NEGATIVE [facility] Comment on above: Performed By: #### U RCX #### [facility] [address] [place] [address] Dr. Anthony Bonilla LEUKOCYTES MODERATE Abnormal NEGATIVE [facility] Comment on above: Performed By: #### U RCX #### [facility] [address] [address] [address] Anthony Bonilla Nitrite Ql (U) Negative Normal NEGATIVE [facility] Comment on above: Performed By: #### U RCX #### [facility] [address] [place] [address] Dr. Anthony Bonilla pH (U) 5.5 [pH] Normal 5-9 [facility] Comment on above: Performed By: #### U RCX #### [facility] [address] [place] [address] Dr. Anthony Bonilla SPEC GRAVITY 1.020 Normal 1.005-<=1. 025 [facility] Comment on above: Performed By: #### U RCX #### [facility] [address] [place] [address] Dr. Anthony Bonilla UA PROTEIN Negative Normal NEGATIVE/ TRACE [facility] Comment on above: Performed By: #### U RCX #### [facility] [address] [place] [address] Dr. Anthony Bonilla Urobilinogen Qn (U) 0.2 {Gen'U}/dL Normal 0.2 - 1. 0 [facility] Comment on above: Performed By: #### U RCX #### [facility] [address] [place] [address] Dr. Anthony Bonilla CULTURE URINEon 05-01-2022 CULTURE [...] Trimethoprim/Sulfamethoxa zole <=20 S F Normal [facility] Comment on above: Performed By: #### U RCX #### [facility] [address] [place] [address] Dr. Anthony Bonilla CULTURE URINEon 04-16-2022 CULTURE [...] F Nitrofurantoin 65 I F Normal [facility] Comment on above: Performed By: #### U RCX #### [facility] [address] [place] [address] Dr. Anthony Bonilla UA RANDOMon 04-14-2022 Bilirubin Ql (U) Negative Normal NEGATIVE [facility] Comment on above: Performed By: #### U RCX #### [facility] [address] [place] [address] Dr. Anthony Bonilla Clarity (U) CLEAR Normal CLEAR [facility] Comment on above: Performed By: #### U RCX #### [facility] [address] [place] [address] Dr. Anthony Bonilla Color (U) LT. YELLOW Normal YELLOW [facility] Comment on above: Performed By: #### U RCX #### [facility] [address] [place] [address] Dr. Anthony Bonilla Glucose Ql (U) Negative Normal NEGATIVE [facility] Comment on above: Performed By: #### U RCX #### [facility] [address] [place] [address] Dr. Anthony Bonilla Hemoglobin Ql (U) Negative Normal NEGATIVE [facility] Comment on above: Performed By: #### U RCX #### [facility] [address] [place] [address] Dr. Anthony Bonilla Ketones Ql (U) Negative Normal NEGATIVE [facility] Comment on above: Performed By: #### U RCX #### [facility] [address] [place] [address] Dr. Anthony Bonilla LEUKOCYTES MODERATE Abnormal NEGATIVE [facility] Comment on above: Performed By: #### U RCX #### [facility] [address] [place] [address] Dr. Anthony Bonilla Nitrite Ql (U) Negative Normal NEGATIVE [facility] Comment on above: Performed By: #### U RCX #### [facility] [address] [address] [address] Anthony Bonilla pH (U) 5.5 [pH] Normal 5-9 [facility] Comment on above: Performed By: #### U RCX #### [facility] [address] [address] [address] Anthony Bonilla SPEC GRAVITY 1.020 Normal 1.005-<=1. 025 [facility] Comment on above: Performed By: #### U RCX #### [facility] [address] [place] [address] [address] Anthony Bonilla UA PROTEIN Negative Normal NEGATIVE/ TRACE [facility] Comment on above: Performed By: #### U RCX #### [facility] [address] [address] [address] Anthony Bonilla Urobilinogen Qn (U) 0.2 {Gen'U}/dL Normal 0.2 - 1. 0 [facility] Comment on above: Performed By: #### U RCX #### [facility] [address] [address] [address] Anthony Bonilla Urinalysis - DIPSTICKon 03-12 Appearance (U) clear [employer] Other Bilirubin Ql (U) [employer] Other Color (U) dark yellow [employer] Other Glucose Ql (U) Negative [employer] Other Hemoglobin Ql (U) Negative [employer] Other Ketones Ql (U) trace [employer] Other Leukocyte esterase Test strip Ql (U) [employer] Other Nitrite Ql (U) Negative [employer] Other pH (U) 5.0 [pH] [employer] Other Protein Ql (U) Negative [employer] Other Specific gravity (U) [Rel density] 1.015 Embly [facility] [employer] Other Urobilinogen (U) [Mass/Vol] 0.2 mg/dL [employer] Other Urinalysis - DIPSTICK [employer] Other Urine Cultureon 03-30-2022 Urine Culture 10,000 Embly [facility] [employer] Other Bacteria identified Cx Nom (U) Embly [facility] [employer] Other CULTURE URINEon 03-23-2022 CULTURE URINE Isolate 1 Pseudomonas aeruginosa >100,000 cfu/mL of ORGANISM 1 Pseudomonas aeruginosa ANTIBIOTIC M.I.C RX STATUS Piperacillin/Tazobactam 8 S F Ceftazidime 4 S F Imipenem 1 S F Amikacin <=2 S F Gentamicin <=1 S F Tobramycin <=1 S F Ciprofloxacin <=0.25 S F Levofloxacin 0.5 S F Normal [facility] Comment on above: Performed By: #### U RCX #### [facility] [address] [address] [address] Anthony Bonilla CARDIAC DARWIN ADMITon 023 CK [Catalytic activity/Vol] 137 U/L Normal 26-192 [facility] Comment on above: Performed By: #### U RCX #### [facility] [address] [address] [address] Anthony Bonilla CK.MB [Mass/Vol] 1.05 ng/mL Normal <=3.60 [facility] Comment on above: Performed By: #### U RCX #### [facility] [address] [place] [address] Dr. Anthony Bonilla HSTROP 17.6 pg/mL Normal 4.0-51.3 [facility] Comment on above: Result Comment: CUT- OFF POINTS HAVE BEEN ESTABLISHED BASED ON THE FOURTH UNIVERSAL DEFINITIONS OF MYOCARDIAL INFARCTION. THE UPPER REFERENCE LIMIT (URL) OF TROPONIN, DEFINED THE 99TH PERCENTILE OF cTnI DISTRIBUTION IN A REFERENCE POPULATION, HAS BEEN CONFIRMED THE DECISION THRESHOLD FOR MS DIAGNOSIS. Performed By: #### U RCX #### [facility] [address] [address] [address] Anthony Bonilla CANDIDA 72 ng/mL Normal 9-82 [facility] Comment on above: Performed By: #### U RCX #### [facility] [address] [place] [address] Dr. Anthony Bonilla CBC AUTO DIFFon 03-20-2022 BASO # 0.0 103/ul Normal 0.0-0.1 [facility] Comment on above: Performed By: #### C BC #### [facility] [address] [place] [address] Dr. Anthony Bonilla Basophils/100 WBC (Bld) 0.3 % Normal 0.2-2.0 [facility] Comment on above: Performed By: #### C BC #### [facility] [address] [place] [address] Dr. Anthony Bonilla EO # 0.0 103/ul Normal 0.0-0.7 [facility] Comment on above: Performed By: #### C BC #### [facility] [address] [place] [address] Dr. Anthony Bonilla Eosinophils/100 WBC (Bld) 0.1 % Critically low 0.9-7.0 [facility] Comment on above: Performed By: #### C BC #### [facility] [address] [place] [address] Dr. Anthony Bonilla Erythrocyte distribution width (RBC) [Ratio] 15.9 % Critically high 11.0-15.0 [facility] Comment on above: Performed By: #### C BC #### [facility] [address] [place] [address] Dr. Anthony Bonilla Hematocrit (Bld) [Volume fraction] 33.6 % Critically low 36.0-48.0 [facility] Comment on above: Performed By: #### C BC #### [facility] [address] [place] [address] Dr. Anthony Bonilla Hemoglobin (Bld) [Mass/Vol] 11.2 g/dL Critically low 12.0-16.0 [facility] Comment on above: Performed By: #### C BC #### [facility] [address] [address] [address] Anthony Bonilla IG # 0.04 10e3/ul Critically high 0.00-0.03 [facility] Comment on above: Performed By: #### C BC #### [facility] [address] [address] [address] Anthony Bonilla IG % 0.3 % Normal 0.0-0.5 [facility] Comment on above: Performed By: #### C BC #### [facility] [address] [place] [address] Dr. Anthony Bonilla LYMPH # 0.8 103/ul Critically low 1.2-3.8 [facility] Comment on above: Performed By: #### C BC #### [facility] [address] [place] [address] Dr. Anthony Bonilla Lymphocytes/100 WBC (Bld) 6.4 % Critically low 20.5-60.0 [facility] Comment on above: Performed By: #### C BC #### [facility] [address] [place] [address] Dr. Anthony Bonilla MANUAL DIFF REQ NO Normal [facility] Comment on above: Performed By: #### C BC #### [facility] [address] [place] [address] Dr. Anthony Bonilla MCH (RBC) [Entitic mass] 28.9 pg Normal 26.7-34.0 [facility] Comment on above: Performed By: #### C BC #### [facility] [address] [place] [address] Dr. Anthony Bonilla MCHC (RBC) [Mass/Vol] 33.3 g/dL Normal 29.9-35.2 [facility] Comment on above: Performed By: #### C BC #### [facility] [address] [place] [address] Dr. Anthony Bonilla MCV (RBC) [Entitic vol] 86.8 fL Normal 81.0-99.0 [facility] Comment on above: Performed By: #### C BC #### [facility] [address] [place] [address] Dr. Anthony Bonilla MONO # 1.1 103/ul Critically high 0.3-0.8 [facility] Comment on above: Performed By: #### C BC #### [facility] [address] [place] [address] Dr. Anthony Bonilla Monocytes/100 WBC (Bld) 8.3 % Normal 1.7-12.0 [facility] Comment on above: Performed By: #### C BC #### [facility] [address] [place] [address] Dr. Anthony Bonilla NEUT # 11.2 103/ul Critically high 1.4-6.5 [facility] Comment on above: Performed By: #### C BC #### [facility] [address] [place] [address] Dr. Anthony Bonilla Neutrophils/100 WBC (Bld) 84.6 % Critically high 43.0-75.0 [facility] Comment on above: Performed By: #### C BC #### [facility] [address] [place] [address] Dr. Anthony Bonilla Platelet mean volume (Bld) [Entitic vol] 9.7 fL Normal 9.5-13.5 [facility] Comment on above: Performed By: #### C BC #### [facility] [address] [place] [address] Dr. Anthony Bonilla PLT 274 103/ul Normal 150-450 [facility] Comment on above: Performed By: #### C BC #### [facility] [address] [place] [address] Dr. Anthony Bonilla RBC 3.87 106/ul Critically low 4.20-5.40 [facility] Comment on above: Performed By: #### C BC #### [facility] [address] [place] [address] Dr. Anthony Bonilla WBC 13.2 103/ul Critically high 4.0-11.0 [facility] Comment on above: Performed By: #### C BC #### [facility] [address] [place] [address] HEAD WO CONon [...] CLAU SHAH Date: 2022-03-20 20:30 Normal [facility] ER URINE PROFILEon 3 Bilirubin Ql (U) Negative Normal NEGATIVE [facility] Comment on above: Performed By: #### C BC #### [facility] [address] [place] [address] Dr. Anthony Bonilla Clarity (U) CLEAR Normal CLEAR [facility] Comment on above: Performed By: #### C BC #### [facility] [address] [place] [address] Dr. Anthony Bonilla Color (U) LT. YELLOW Normal YELLOW [facility] Comment on above: Performed By: #### C BC #### [facility] [address] [place] [address] Dr. Anthony BANGURA A micrscopic examina tion will be performed if indicated. Normal [facility] Comment on above: Performed By: #### C BC #### [facility] [address] [place] [address] Dr. Anthony Bonilla Glucose Ql (U) Negative Normal NEGATIVE [facility] Comment on above: Performed By: #### C BC #### [facility] [address] [place] [address] Dr. Anthony Bonilla Hemoglobin Ql (U) LARGE Abnormal NEGATIVE [facility] Comment on above: Performed By: #### C BC #### [facility] [address] [place] [address] Dr. Anthony Bonilla Ketones Ql (U) Negative Normal NEGATIVE [facility] Comment on above: Performed By: #### C BC #### [facility] [address] [place] [address] Dr. Anthony Bonilla LEUKOCYTES SMALL Abnormal NEGATIVE [facility] Comment on above: Performed By: #### C BC #### [facility] [address] [place] [address] Dr. Anthony Bonilla Nitrite Ql (U) Positive Abnormal NEGATIVE [facility] Comment on above: Performed By: #### C BC #### [facility] [address] [place] [address] Dr. Anthony Bonilla pH (U) 7.0 [pH] Normal 5-9 [facility] Comment on above: Performed By: #### C BC #### [facility] [address] [place] [address] Dr. Anthony Bonilla Protein (U) [Mass/Vol] 30 mg/dL Abnormal NEGAT JAMAR/ TRACE [facility] Comment on above: Performed By: #### C BC #### [facility] [address] [place] [address] Dr. Anthony Bonilla SPEC GRAVITY 1.015 Normal 1.005-<=1. 025 [facility] Comment on above: Performed By: #### C BC #### [facility] [address] [place] [address] Dr. Anthony Bonilla UR MICRO IND INDICATED Normal [facility] Comment on above: Performed By: #### C BC #### [facility] [address] [place] [address] Dr. Anthony Bonilla Urobilinogen Qn (U) 1.0 {Gen'U}/dL Normal 0.2 - 1. 0 [facility] Comment on above: Performed By: #### C BC #### [facility] [address] [place] [address] Dr. Anthony Bonilla PROF 14(COMP METB)on 023 Albumin [Mass/Vol] 3.4 g/dL Normal 3.4-5.0 [facility] Comment on above: Performed By: #### U RCX #### [facility] [address] [place] [address] Dr. Anthony Bonilla Albumin/Globulin [Mass ratio] 1.2 {ratio} Normal [facility] Comment on above: Performed By: #### U RCX #### [facility] [address] [place] [address] Dr. Anthony Bonilla ALP [Catalytic activity/Vol] 26 U/L Critically low 46-116 [facility] Comment on above: Performed By: #### U RCX #### [facility] [address] [place] [address] Dr. Anthony Bonilla ALT [Catalytic activity/Vol] 21 U/L Normal 14-59 [facility] Comment on above: Performed By: #### U RCX #### [facility] [address] [place] [address] Dr. Anthony Bonilla Anion gap [Moles/Vol] 13.7 mmol/L Normal [facility] Comment on above: Performed By: #### U RCX #### [facility] [address] [place] [address] Dr. Anthony Bonilla AST [Catalytic activity/Vol] 20 U/L Normal 15-37 [facility] Comment on above: Performed By: #### U RCX #### [facility] [address] [place] [address] Dr. Anthony Bonilla Bilirubin [Mass/Vol] 1.2 mg/dL Critically high 0.2-1.0 [facility] Comment on above: Performed By: #### U RCX #### [facility] [address] [place] [address] Dr. Anthony Bonilla Calcium [Mass/Vol] 9.4 mg/dL Normal 8.5-10.1 [facility] Comment on above: Performed By: #### U RCX #### [facility] [address] [address] [address] Anthony Bonilla Chloride [Moles/Vol] 99 mmol/L Normal 98-107 [facility] Comment on above: Performed By: #### U RCX #### [facility] [address] [place] [address] Dr. Anthony Bonilla CO2 [Moles/Vol] 29.1 mmol/L Normal 21.0-32.0 [facility] Comment on above: Performed By: #### U RCX #### [facility] [address] [place] [address] Dr. Anthony Bonilla Creatinine [Mass/Vol] 1.02 mg/dL Normal 0.55-1.02 [facility] Comment on above: Performed By: #### U RCX #### [facility] [address] [place] [address] Dr. Anthony Bonilla EGFR-AF [place]IZ[place] >60 Normal >=60 [facility] Comment on above: Performed By: #### U RCX #### [facility] [address] [place] [address] Dr. Anthony Bonilla EGFR-NON AF CITIZEN [place] 52 mL/min/1.73m2 Critically low >=60 [facility] Comment on above: Performed By: #### U RCX #### [facility] [address] [address] [address] Anthony Bonilla Globulin (S) [Mass/Vol] 2.9 g/dL Normal [facility] Comment on above: Performed By: #### U RCX #### [facility] [address] [place] [address] Dr. Anthony Bonilla Glucose [Mass/Vol] 98 mg/dL Normal 74-106 [facility] Comment on above: Performed By: #### U RCX #### [facility] [address] [place] [address] Dr. Anthony Bonilla Potassium [Moles/Vol] 3.8 mmol/L Normal 3.5-5.1 [facility] Comment on above: Performed By: #### U RCX #### [facility] [address] [place] [address] Dr. Anthony Bonilla Protein [Mass/Vol] 6.3 g/dL Critically low 6.4-8.2 [facility] Comment on above: Performed By: #### U RCX #### [facility] [address] [place] [address] Dr. Anthony Bonilla Sodium [Moles/Vol] 138 mmol/L Normal 136-145 [facility] Comment on above: Performed By: #### U RCX #### [facility] [address] [place] [address] Dr. Anthony Bonilla Urea nitrogen [Mass/Vol] 16.0 mg/dL Normal 7.0-18.0 [facility] Comment on above: Performed By: #### U RCX #### [facility] [address] [place] [address] Dr. Anthony Bonilla Urea nitrogen/Creatinine [Mass ratio] 15.7 mg/mg Normal [facility] Comment on above: Performed By: #### U RCX #### [facility] [address] [place] [address] Dr. Anthony Bonilla URINE MICROSCOPIC ONLYon BACTERIA LARGE Abnormal NONE SEEN [facility] Comment on above: Performed By: #### C BC #### [facility] [address] [place] [address] Dr. Anthony Bonilla Bacteria identified Cx Nom (U) INDICATED Normal [facility] Comment on above: Performed By: #### C BC #### [facility] [address] [place] [address] Dr. Anthony Bonilla CAST NONE SEEN Normal NONE SEEN [facility] Comment on above: Performed By: #### C BC #### [facility] [address] [place] [address] Dr. Anthony Bonilla Crystals LM Nom (Urine sed) NONE SEEN Normal NONE SEEN [facility] Comment on above: Performed By: #### C BC #### [facility] [address] [place] [address] Dr. nAthony Bonilla Epithelial cells LM Ql (Urine sed) FEW Abnormal NONE SEEN /RARE [facility] Comment on above: Performed By: #### C BC #### [facility] [address] [place] [address] Dr. Anthony Bonilla MUCOUS NONE SEEN Normal NONE SEEN [facility] Comment on above: Performed By: #### C BC #### [facility] [address] [place] [address] Dr. Anthony Bonilla RBC 10-20 Abnormal 0-2 [facility] Comment on above: Performed By: #### C BC #### [facility] [address] [place] [address] Dr. Anthony Bonilla WBC 50-75 Abnormal NONE SEEN [facility] Comment on above: Performed By: #### C BC #### [facility] [address] [place] [address] Dr. Anthony Bonilla CALPROTECTIN, FECALon 2022 Calprotectin, Fecal 416 ug/g Critically high 0-120 [facility] Comment on above: Result Comment: Conc entration Interpretation Follow-Up <16 - 50 ug/g Normal None >50 -120 ug/g Borderline Re-evaluate in 4-6 weeks >120 ug/g Abnormal Repeat as clinically indicated Performed By: #### U RCX #### [facility] [address] [place] [address] Dr. Anthony Bonilla QUANTIFERON TB GOLD PLUSon 0 02-19-2022 QuantiFERON Criteria Comment Normal [facility] Comment on above: Result Comment: Butch [...] test. Performed By: #### U RCX #### [facility] [address] [place] [address] Dr. Anthony Bonilla QuantiFERON Incubation Incubation performed. Normal [facility] Comment on above: Performed By: #### U RCX #### [facility] [address] [place] [address] Dr. Anthony Bonilla QuantiFERON Mitogen Value >10.00 Normal [facility] Comment on above: Performed By: #### U RCX #### [facility] [address] [place] [address] Dr. Anthony Bonilla QuantiFERON Nil Value 0.07 IU/mL Normal [facility] Comment on above: Performed By: #### U RCX #### [facility] [address] [place] [address] Dr. Anthony Bonilla QuantiFERON TB1 Ag Value 0.08 IU/mL Normal [facility] Comment on above: Performed By: #### U RCX #### [facility] [address] [place] [address] Dr. Anthony Bonilla QuantiFERON TB2 Ag Value 0.07 IU/mL Normal [facility] Comment on above: Performed By: #### U RCX #### [facility] [address] [place] [address] Dr. Anthony Bonilla QuantiFERON-TB Gold Plus Negative Normal Negative [facility] Comment on above: Result Comment: No r esponse to M tuberculosis antigens detected. Infection with M tuberculosis is unlikely, but high risk individuals should be considered for additional testing (ATS/IDSA/CDC Clinical Practice Guidelines, 2017). The reference range is an Antigen minus Nil result of <0.35 IU/mL. Chemiluminescence immunoassay methodology Performed By: #### U RCX #### [facility] [address] [place] [address] Dr. Anthony Bonilla HEP B SURFACE ANTIGEN SCREEN on 02-18-2022 HBsAg Screen Negative Normal Negative [facility] Comment on above: Performed By: #### U RCX #### [facility] [address] [place] [address] Dr. Anthony Bonilla HEPATITIS B CORE, IgMon 02-08 Hep B Core Ab, IgM Negative Normal Negative [facility] Comment on above: Performed By: #### U RCX #### [facility] [address] [place] [address] Dr. Anthony Bonilla HEPATITIS B SURFACE ANTIBODY , QUANTon 02-18-2022 Hepatitis B Surf AB Quant <3.1 Critically low Immunity>9 .9 [facility] Comment on above: Result Comment: Stat us of Immunity Anti-HBs Level Inconsistent with Immunity 0.0 - 9.9 Consistent with Immunity >9.9 Performed By: #### C BC #### [facility] [address] [place] [address] Dr. Anthony Bonilla CBC AUTO DIFFon 02-17-2022 BASO # 0.0 103/ul Normal 0.0-0.1 [facility] Comment on above: Performed By: #### U RCX #### [facility] [address] [place] [address] Dr. Anthony Bonilla Basophils/100 WBC (Bld) 0.4 % Normal 0.2-2.0 [facility] Comment on above: Performed By: #### U RCX #### [facility] [address] [place] [address] Dr. Anthony Bonilla EO # 0.0 103/ul Normal 0.0-0.7 [facility] Comment on above: Performed By: #### U RCX #### [facility] [address] [place] [address] Dr. Anthony Bonilla Eosinophils/100 WBC (Bld) 0.5 % Critically low 0.9-7.0 [facility] Comment on above: Performed By: #### U RCX #### [facility] [address] [place] [address] Dr. Anthony Bonilla Erythrocyte distribution width (RBC) [Ratio] 14.7 % Normal 11.0-15.0 [facility] Comment on above: Performed By: #### U RCX #### [facility] [address] [address] [address] Anthony Bonilla Hematocrit (Bld) [Volume fraction] 33.2 % Critically low 36.0-48.0 [facility] Comment on above: Performed By: #### U RCX #### [facility] [address] [address] [address] Anthony Bonilla Hemoglobin (Bld) [Mass/Vol] 11.0 g/dL Critically low 12.0-16.0 [facility] Comment on above: Performed By: #### U RCX #### [facility] [address] [address] [address] Anthony Bonilla IG # 0.02 10e3/ul Normal 0.00-0.03 [facility] Comment on above: Performed By: #### U RCX #### [facility] [address] [place] [address] Dr. Anthony Bonilla IG % 0.2 % Normal 0.0-0.5 [facility] Comment on above: Performed By: #### U RCX #### [facility] [address] [place] [address] Dr. Anthony Bonilla LYMPH # 1.3 103/ul Normal 1.2-3.8 [facility] Comment on above: Performed By: #### U RCX #### [facility] [address] [place] [address] Dr. Anthony Bonilla Lymphocytes/100 WBC (Bld) 14.8 % Critically low 20.5-60.0 [facility] Comment on above: Performed By: #### U RCX #### [facility] [address] [place] [address] Dr. Anthony Bonilla MANUAL DIFF REQ NO Normal [facility] Comment on above: Performed By: #### U RCX #### [facility] [address] [place] [address] Dr. Anthony Bonilla MCH (RBC) [Entitic mass] 29.0 pg Normal 26.7-34.0 [facility] Comment on above: Performed By: #### U RCX #### [facility] [address] [address] [address] Anthony Bonilla MCHC (RBC) [Mass/Vol] 33.1 g/dL Normal 29.9-35.2 [facility] Comment on above: Performed By: #### U RCX #### [facility] [address] [address] [address] Anthony Bonilla MCV (RBC) [Entitic vol] 87.6 fL Normal 81.0-99.0 [facility] Comment on above: Performed By: #### U RCX #### [facility] [address] [address] [address] Anthony Bonilla MONO # 0.8 103/ul Normal 0.3-0.8 [facility] Comment on above: Performed By: #### U RCX #### [facility] [address] [place] [address] Dr. Anthony Bonilla Monocytes/100 WBC (Bld) 9.6 % Normal 1.7-12.0 [facility] Comment on above: Performed By: #### U RCX #### [facility] [address] [place] [address] Dr. Anthony Bonilla NEUT # 6.3 103/ul Normal 1.4-6.5 [facility] Comment on above: Performed By: #### U RCX #### [facility] [address] [place] [address] Dr. Anthony Bonilla Neutrophils/100 WBC (Bld) 74.5 % Normal 43.0-75.0 [facility] Comment on above: Performed By: #### U RCX #### [facility] [address] [place] [address] Dr. Anthony Bonilla Platelet mean volume (Bld) [Entitic vol] 9.8 fL Normal 9.5-13.5 [facility] Comment on above: Performed By: #### U RCX #### [facility] [address] [place] [address] Dr. Anthony Bonilla PLT 318 103/ul Normal 150-450 [facility] Comment on above: Performed By: #### U RCX #### [facility] [address] [address] [address] Anthony Bonilal RBC 3.79 106/ul Critically low 4.20-5.40 [facility] Comment on above: Performed By: #### U RCX #### [facility] [address] [address] [address] Anthony Bonilla WBC 8.5 103/ul Normal 4.0-11.0 [facility] Comment on above: Performed By: #### U RCX #### [facility] [address] [place] [address] Dr. Anthony Bonilla PROF 14(COMP METB)on 023 Albumin [Mass/Vol] 3.6 g/dL Normal 3.4-5.0 [facility] Comment on above: Performed By: #### U RCX #### [facility] [address] [place] [address] Dr. Anthony Bonilla Albumin/Globulin [Mass ratio] 1.2 {ratio} Normal [facility] Comment on above: Performed By: #### U RCX #### [facility] [address] [address] [address] Anthony Bonilla ALP [Catalytic activity/Vol] 27 U/L Critically low 46-116 [facility] Comment on above: Performed By: #### U RCX #### [facility] [address] [place] [address] Dr. Anthony Bonilla ALT [Catalytic activity/Vol] 21 U/L Normal 14-59 [facility] Comment on above: Performed By: #### U RCX #### [facility] [address] [address] [address] Anthony Bonilla Anion gap [Moles/Vol] 13.5 mmol/L Normal [facility] Comment on above: Performed By: #### U RCX #### [facility] [address] [place] [address] Dr. Anthony Bonilla AST [Catalytic activity/Vol] 19 U/L Normal 15-37 [facility] Comment on above: Performed By: #### U RCX #### [facility] [address] [address] [address] Anthony Bonilla Bilirubin [Mass/Vol] 0.6 mg/dL Normal 0.2-1.0 [facility] Comment on above: Performed By: #### U RCX #### [facility] [address] [address] [address] Anthony Bonilla Calcium [Mass/Vol] 9.2 mg/dL Normal 8.5-10.1 [facility] Comment on above: Performed By: #### U RCX #### [facility] [address] [address] [address] Anthony Bonilla Chloride [Moles/Vol] 104 mmol/L Normal 98-107 [facility] Comment on above: Performed By: #### U RCX #### [facility] [address] [address] [address] Anthony Bonilla CO2 [Moles/Vol] 28.9 mmol/L Normal 21.0-32.0 [facility] Comment on above: Performed By: #### U RCX #### [facility] [address] [address] [address] Anthony Bonilla Creatinine [Mass/Vol] 1.21 mg/dL Critically high 0.55-1.02 [facility] Comment on above: Performed By: #### U RCX #### [facility] [address] [address] [address] Anthony Bonilla EGFR-AF [place]IZ[place] 51 mL/min/1.73m2 Critically low >=60 [facility] Comment on above: Performed By: #### U RCX #### [facility] [address] [address] [address] Anthony Bonilla EGFR-NON AF CITIZEN [place] 42 mL/min/1.73m2 Critically low >=60 [facility] Comment on above: Performed By: #### U RCX #### [facility] [address] [address] [address] Anthony Bonilla Globulin (S) [Mass/Vol] 3.1 g/dL Normal [facility] Comment on above: Performed By: #### U RCX #### [facility] [address] [address] [address] Anthony Bonilla Glucose [Mass/Vol] 107 mg/dL Critically high 74-106 [facility] Comment on above: Performed By: #### U RCX #### [facility] [address] [address] [address] Anthony Bonilla Potassium [Moles/Vol] 3.4 mmol/L Critically low 3.5-5.1 [facility] Comment on above: Performed By: #### U RCX #### [facility] [address] [address] [address] Anthony Bonilla Protein [Mass/Vol] 6.7 g/dL Normal 6.4-8.2 [facility] Comment on above: Performed By: #### U RCX #### [facility] [address] [address] [address] Anthony Bonilla Sodium [Moles/Vol] 143 mmol/L Normal 136-145 [facility] Comment on above: Performed By: #### U RCX #### [facility] [address] [address] [address] Anthony Bonilla Urea nitrogen [Mass/Vol] 22.0 mg/dL Critically high 7.0-18.0 [facility] Comment on above: Performed By: #### U RCX #### [facility] [address] [address] [address] Anthony Bonilla Urea nitrogen/Creatinine [Mass ratio] 18.2 mg/mg Normal [facility] Comment on above: Performed By: #### U RCX #### [facility] [address] [address] [address] Anthony Bonilla Automated erythrocytes count in urine sediment (number/area)Ordered By: Gypsy Mcmahon on 02-16-2022 RBC Auto (Urine sed) [#/Area] 0-1 [HPF] 0-4 [facility] Automated leukocytes count i n urine sediment (number/area)Ordered By: Gypsy Mcmahon on 02-16-2022 WBC Auto (Urine sed) [#/Area] 20-49 [HPF] 0-4 [facility] Bilirubin Test strip Ql (U)O rdered By: Gypsy Mcmahon on 02-16-2022 Bilirubin Ql (U) Negative Negative [facility] Color Auto (U)Ordered By: Nicole Mcmahon on 02-16-2022 Color (U) Yellow Yellow [facility] Ketones Auto test strip (U) [Mass/Vol]Ordered By: Gypsy Mcmahon on 02-16-2022 Ketones (U) [Mass/Vol] Trace Negative [facility] - UrinalysisOrder ed By: Gypsy Mcmahon on 02-16-2022 Hyaline casts LM Ql (Urine sed) 9-19 [LPF] 0-8 [facility] Nitrite Test strip Ql (U)Ord ered By: Gypsy Mcmahon on 02-16-2022 Nitrite Ql (U) Positive Negative [facility] Protein Auto test strip (U) [Mass/Vol]Ordered By: Gypsy Mcmahon on 02-16-2022 Protein (U) [Mass/Vol] Negative Negative [facility] Specific gravity Auto test s trip (U) [Rel density]Ordered By: Gypsy Mcmahon on 02-16-2022 Specific gravity (U) [Rel density] 1.018 1.001-1.03 0 [facility] Squamous epithelial cells de tection in urine sediment by light microscopyOrdered By: Gypsy Mcmahon on 02-16-2022 Epithelial cells.squamous LM Ql (Urine sed) 5-9 [HPF] 0-2 [facility] Urine Cultureon 02-16-2022 Urine Culture >100,000 [employer] Other Urine Culture <16 Susceptible [employer] Other Urine Culture <8/4 Susceptible [employer] Other Urine Culture <4 Susceptible [employer] Other Urine Culture <2 Susceptible [employer] Other Urine Culture <1 Susceptible [employer] Other Urine Culture <0.25 Susceptible [employer] Other Urine Culture <0.5 Susceptible [employer] Other Urine Culture <32 Susceptible [employer] Other Urine Culture <0.5/9.5 Susceptible [employer] Other Urine bacteria detection by automated methodOrdered By: Gypsy Mcmahon on 02-16-2022 Bacteria Auto Ql (U) 2+ None Seen [facility] Urine clarity by refractomet ry automatedOrdered By: Gypsy Mcmahon on 02-16-2022 Clarity Refractometry automated (U) Cloudy Clear [facility] Urine culture routineOrdered By: Gypsy Mcmahon on 02-16-2022 Bacteria identified Cx Nom (U) Klebsiella variicola [facility] Urine glucose measurement by automated test strip (mass/volume)Ordered By: Gypsy Mcmahon on 02-16-2022 Glucose Auto test strip (U) [Mass/Vol] Normal mg/dL Normal [facility] Urine hemoglobin detection b y automated test stripOrdered By: Gypsy Mcmahon on 02-16-2022 Hemoglobin Auto test strip Ql (U) Negative Negative [facility] Urine leukocyte esterase det ection by automated test stripOrdered By: Gypsy Mcmahon on 02-16-2022 Leukocyte esterase Auto test strip Ql (U) 2+ Negative [facility] Urobilinogen Auto test strip (U) [Mass/Vol]Ordered By: Gypsy Mcmahon on 02-16-2022 Urobilinogen (U) [Mass/Vol] Normal mg/dL Normal [facility] pH Auto test strip (U)Ordere d By: Gypsy Mcmahon on 02-16-2022 pH (U) 5.5 [pH] 5.0-9.0 [facility] CBC AUTO DIFFon 01-15-2022 BASO # 0.0 103/ul Normal 0.0-0.1 [facility] Comment on above: Performed By: #### C BC #### [facility] [address] [address] [address] Anthony Bonilla Basophils/100 WBC (Bld) 0.5 % Normal 0.2-2.0 [facility] Comment on above: Performed By: #### C BC #### [facility] [address] [place] [address] Dr. Anthony Bonilla EO # 0.1 103/ul Normal 0.0-0.7 [facility] Comment on above: Performed By: #### C BC #### [facility] [address] [place] [address] Dr. Anthony Bonilla Eosinophils/100 WBC (Bld) 0.9 % Normal 0.9-7.0 [facility] Comment on above: Performed By: #### C BC #### [facility] [address] [place] [address] Dr. Anthony Bonilla Erythrocyte distribution width (RBC) [Ratio] 14.8 % Normal 11.0-15.0 [facility] Comment on above: Performed By: #### C BC #### [facility] [address] [place] [address] Dr. Anthony Bonilla Hematocrit (Bld) [Volume fraction] 30.3 % Critically low 36.0-48.0 [facility] Comment on above: Performed By: #### C BC #### [facility] [address] [place] [address] Dr. Anthony Bonilla Hemoglobin (Bld) [Mass/Vol] 9.8 g/dL Critically low 12.0-16.0 [facility] Comment on above: Performed By: #### C BC #### [facility] [address] [place] [address] Dr. Anthony Bonilla IG # 0.03 10e3/ul Normal 0.00-0.03 [facility] Comment on above: Performed By: #### C BC #### [facility] [address] [place] [address] Dr. Anthony Bonilla IG % 0.3 % Normal 0.0-0.5 [facility] Comment on above: Performed By: #### C BC #### [facility] [address] [place] [address] Dr. Anthony Bonilla LYMPH # 1.4 103/ul Normal 1.2-3.8 [facility] Comment on above: Performed By: #### C BC #### [facility] [address] [place] [address] Dr. Anthony Bonilla Lymphocytes/100 WBC (Bld) 15.7 % Critically low 20.5-60.0 [facility] Comment on above: Performed By: #### C BC #### [facility] [address] [place] [address] Dr. Anthony Bonilla MANUAL DIFF REQ NO Normal [facility] Comment on above: Performed By: #### C BC #### [facility] [address] [place] [address] Dr. Anthony Bonilla MCH (RBC) [Entitic mass] 30.0 pg Normal 26.7-34.0 [facility] Comment on above: Performed By: #### C BC #### [facility] [address] [place] [address] Dr. Anthony Bonilla MCHC (RBC) [Mass/Vol] 32.3 g/dL Normal 29.9-35.2 [facility] Comment on above: Performed By: #### C BC #### [facility] [address] [place] [address] Dr. Anthony Bonilla MCV (RBC) [Entitic vol] 92.7 fL Normal 81.0-99.0 [facility] Comment on above: Performed By: #### C BC #### [facility] [address] [place] [address] Dr. Anthony Bonilla MONO # 1.1 103/ul Critically high 0.3-0.8 [facility] Comment on above: Performed By: #### C BC #### [facility] [address] [place] [address] Dr. Anthony Bonilla Monocytes/100 WBC (Bld) 12.0 % Normal 1.7-12.0 [facility] Comment on above: Performed By: #### C BC #### [facility] [address] [place] [address] Dr. Anthony Bonilla NEUT # 6.2 103/ul Normal 1.4-6.5 [facility] Comment on above: Performed By: #### C BC #### [facility] [address] [place] [address] Dr. Anthony Bonilla Neutrophils/100 WBC (Bld) 70.6 % Normal 43.0-75.0 [facility] Comment on above: Performed By: #### C BC #### [facility] [address] [place] [address] Dr. Anthony Bonilla Platelet mean volume (Bld) [Entitic vol] 9.8 fL Normal 9.5-13.5 [facility] Comment on above: Performed By: #### C BC #### [facility] [address] [place] [address] Dr. Anthony Bonilla PLT 305 103/ul Normal 150-450 [facility] Comment on above: Performed By: #### C BC #### [facility] [address] [place] [address] Dr. Anthony Bonilla RBC 3.27 106/ul Critically low 4.20-5.40 [facility] Comment on above: Performed By: #### C BC #### [facility] [address] [place] [address] Dr. Anthony Bonilla WBC 8.7 103/ul Normal 4.0-11.0 [facility] Comment on above: Performed By: #### C BC #### [facility] [address] [place] [address] Dr. Anthony Bonilla PROF CHEM 8 (BAS METB)on Anion gap [Moles/Vol] 12.2 mmol/L Normal [facility] Comment on above: Performed By: #### U RCX #### [facility] [address] [place] [address] Dr. Anthony Bonilla Calcium [Mass/Vol] 9.1 mg/dL Normal 8.5-10.1 [facility] Comment on above: Performed By: #### U RCX #### [facility] [address] [place] [address] Dr. Atnhony Bonilla Chloride [Moles/Vol] 104 mmol/L Normal 98-107 [facility] Comment on above: Performed By: #### U RCX #### [facility] [address] [place] [address] Dr. Anthony Bonilla CO2 [Moles/Vol] 24.4 mmol/L Normal 21.0-32.0 [facility] Comment on above: Performed By: #### U RCX #### [facility] [address] [address] [address] Anthony Bonilla Creatinine [Mass/Vol] 1.20 mg/dL Critically high 0.55-1.02 [facility] Comment on above: Performed By: #### U RCX #### [facility] [address] [address] [address] Anthony Bonilla EGFR-AF [place] 52 mL/min/1.73m2 Critically low >=60 [facility] Comment on above: Performed By: #### U RCX #### [facility] [address] [address] [address] Anthony Bonilla EGFR-NON AF [place]IZ[place] 43 mL/min/1.73m2 Critically low >=60 [facility] Comment on above: Performed By: #### U RCX #### [facility] [address] [address] [address] Anthony Bonilla Glucose [Mass/Vol] 81 mg/dL Normal 74-106 [facility] Comment on above: Performed By: #### U RCX #### [facility] [address] [address] [address] Anthony Bonilla Potassium [Moles/Vol] 3.6 mmol/L Normal 3.5-5.1 [facility] Comment on above: Performed By: #### U RCX #### [facility] [address] [address] [address] Anthony Bonilla Sodium [Moles/Vol] 137 mmol/L Normal 136-145 [facility] Comment on above: Performed By: #### U RCX #### [facility] [address] [address] [address] Anthony Bonilla Urea nitrogen [Mass/Vol] 21.0 mg/dL Critically high 7.0-18.0 [facility] Comment on above: Performed By: #### U RCX #### [facility] [address] [address] [address] Anthony Bonilla Urea nitrogen/Creatinine [Mass ratio] 17.5 mg/mg Normal [facility] Comment on above: Performed By: #### U RCX #### [facility] [address] [place] [address] Dr. Anthony Bonilla CULTURE URINEon 12-29-2021 CULTURE [...] Trimethoprim/Sulfamethoxa zole <=20 S F Normal [facility] Comment on above: Performed By: #### U RCX #### [facility] [address] [place] [address] Dr. Anthony Bonilla ER URINE PROFILEon 2 Bilirubin Ql (U) SMALL Abnormal NEGATIVE [facility] Comment on above: Performed By: #### C BC #### [facility] [address] [place] [address] Dr. Anthony Bonilla Clarity (U) SL CLOUDY Abnormal CLEAR [facility] Comment on above: Performed By: #### C BC #### [facility] [address] [place] [address] Dr. Anthony Bonilla Color (U) YELLOW Normal YELLOW [facility] Comment on above: Performed By: #### C BC #### [facility] [address] [place] [address] Dr. Anthony BANGURA A micrscopic examina tion will be performed if indicated. Normal [facility] Comment on above: Performed By: #### C BC #### [facility] [address] [place] [address] Dr. Anthony Bonilla Glucose Ql (U) Negative Normal NEGATIVE [facility] Comment on above: Performed By: #### C BC #### [facility] [address] [place] [address] Dr. Anthony Bonilla Hemoglobin Ql (U) Negative Normal NEGATIVE [facility] Comment on above: Performed By: #### C BC #### [facility] [address] [place] [address] Dr. Anthony Bonilla Ketones Ql (U) TRACE Abnormal NEGATIVE [facility] Comment on above: Performed By: #### C BC #### [facility] [address] [place] [address] Dr. Anthony Bonilla LEUKOCYTES MODERATE Abnormal NEGATIVE [facility] Comment on above: Performed By: #### C BC #### [facility] [address] [place] [address] Dr. Anthony Bonilla Nitrite Ql (U) Positive Abnormal NEGATIVE [facility] Comment on above: Performed By: #### C BC #### [facility] [address] [place] [address] Dr. Anthony Bonilla pH (U) 7.5 [pH] Normal 5-9 [facility] Comment on above: Performed By: #### C BC #### [facility] [address] [place] [address] Dr. Anthony Bonilla Protein (U) [Mass/Vol] 30 mg/dL Abnormal NEGAT JAMAR/ TRACE [facility] Comment on above: Performed By: #### C BC #### [facility] [address] [place] [address] Dr. Anthony Bonilla SPEC GRAVITY 1.020 Normal 1.005-<=1. 025 [facility] Comment on above: Performed By: #### C BC #### [facility] [address] [place] [address] Dr. Anthony Bonilla UR MICRO IND INDICATED Normal [facility] Comment on above: Performed By: #### C BC #### [facility] [address] [place] [address] Dr. Anthony Bonilla Urobilinogen Qn (U) 0.2 {Gen'U}/dL Normal 0.2 - 1. 0 [facility] Comment on above: Performed By: #### C BC #### [facility] [address] [place] [address] Dr. Anthony Bonilla URINE MICROSCOPIC ONLYon BACTERIA TRACE Abnormal NONE SEEN [facility] Comment on above: Performed By: #### C BC #### [facility] [address] [place] [address] Dr. Anthony Bonilla Bacteria identified Cx Nom (U) INDICATED Normal [facility] Comment on above: Performed By: #### C BC #### [facility] [address] [place] [address] Dr. Anthony Bonilla CAST NONE SEEN Normal NONE SEEN [facility] Comment on above: Performed By: #### C BC #### [facility] [address] [place] [address] Dr. Anthony Bonilla Crystals LM Nom (Urine sed) NONE SEEN Normal NONE SEEN [facility] Comment on above: Performed By: #### C BC #### [facility] [address] [place] [address] Dr. Anthony Bonilla Epithelial cells LM Ql (Urine sed) FEW Abnormal NONE SEEN /RARE [facility] Comment on above: Performed By: #### C BC #### [facility] [address] [place] [address] Dr. Anthony Bonilla MUCOUS NONE SEEN Normal NONE SEEN [facility] Comment on above: Performed By: #### C BC #### [facility] [address] [place] [address] Dr. Anthony Bonilla RBC 0-2 Normal 0-2 [facility] Comment on above: Performed By: #### C BC #### [facility] [address] [place] [address] Dr. Anthony Bonilla WBC 5-10 Abnormal NONE SEEN [facility] Comment on above: Performed By: #### C BC #### [facility] [address] [place] [address] Dr. Anthony Bonilla PRBC LEUKOREDUCEDon 11-20-19 PRBC LEUKOREDUCED Cross Match Result Compatible Unit Blood Type A Pos Unit Number [id number] Status Information Transfused Product ID Red Blood Cells Product Code [id number] Normal [facility] Comment on above: Performed By: #### P RBC #### [facility] [address] [place] [address] Dr. Anthony Bonilla CBC AUTO DIFFon 11-10-2021 BASO # 0.0 103/ul Normal 0.0-0.1 [facility] Comment on above: Performed By: #### C BC #### [facility] [address] [place] [address] Dr. Anthony Bonilla Basophils/100 WBC (Bld) 0.7 % Normal 0.2-2.0 [facility] Comment on above: Performed By: #### C BC #### [facility] [address] [place] [address] Dr. Anthony Bonilla EO # 0.2 103/ul Normal 0.0-0.7 [facility] Comment on above: Performed By: #### C BC #### [facility] [address] [place] [address] Dr. Anthony Bonilla Eosinophils/100 WBC (Bld) 2.7 % Normal 0.9-7.0 [facility] Comment on above: Performed By: #### C BC #### [facility] [address] [place] [address] Dr. Anthony Bonilla Erythrocyte distribution width (RBC) [Ratio] 16.3 % Critically high 11.0-15.0 [facility] Comment on above: Performed By: #### C BC #### [facility] [address] [place] [address] Dr. Anthony Bonilla Hematocrit (Bld) [Volume fraction] 29.0 % Critically low 36.0-48.0 [facility] Comment on above: Performed By: #### C BC #### [facility] [address] [place] [address] Dr. Anthony Bonilla Hemoglobin (Bld) [Mass/Vol] 9.4 g/dL Critically low 12.0-16.0 [facility] Comment on above: Performed By: #### C BC #### [facility] [address] [place] [address] Dr. Anthony Bonilla IG # 0.04 10e3/ul Critically high 0.00-0.03 [facility] Comment on above: Performed By: #### C BC #### [facility] [address] [place] [address] Dr. Anthony Bonilla IG % 0.7 % Critically high 0.0-0.5 [facility] Comment on above: Performed By: #### C BC #### [facility] [address] [place] [address] Dr. Anthony Bonilla LYMPH # 1.2 103/ul Normal 1.2-3.8 [facility] Comment on above: Performed By: #### C BC #### [facility] [address] [place] [address] Dr. Anthony Bonilla Lymphocytes/100 WBC (Bld) 21.5 % Normal 20.5-60.0 [facility] Comment on above: Performed By: #### C BC #### [facility] [address] [place] [address] Dr. Anthony Bonilla MANUAL DIFF REQ NO Normal [facility] Comment on above: Performed By: #### C BC #### [facility] [address] [place] [address] Dr. Anthony Bonilla MCH (RBC) [Entitic mass] 32.3 pg Normal 26.7-34.0 [facility] Comment on above: Performed By: #### C BC #### [facility] [address] [place] [address] Dr. Anthony Bonilla MCHC (RBC) [Mass/Vol] 32.4 g/dL Normal 29.9-35.2 [facility] Comment on above: Performed By: #### C BC #### [facility] [address] [place] [address] Dr. Anthony Bonilla MCV (RBC) [Entitic vol] 99.7 fL Critically high 81.0-99.0 [facility] Comment on above: Performed By: #### C BC #### [facility] [address] [place] [address] Dr. Anthony Bonilla MONO # 0.7 103/ul Normal 0.3-0.8 [facility] Comment on above: Performed By: #### C BC #### [facility] [address] [place] [address] Dr. Anthony Bonilla Monocytes/100 WBC (Bld) 12.6 % Critically high 1.7-12.0 [facility] Comment on above: Performed By: #### C BC #### [facility] [address] [place] [address] Dr. Anthony Bonilla NEUT # 3.4 103/ul Normal 1.4-6.5 [facility] Comment on above: Performed By: #### C BC #### [facility] [address] [place] [address] Dr. Anthony Bonilla Neutrophils/100 WBC (Bld) 61.8 % Normal 43.0-75.0 [facility] Comment on above: Performed By: #### C BC #### [facility] [address] [place] [address] Dr. Anthony Bonilla Platelet mean volume (Bld) [Entitic vol] 9.0 fL Critically low 9.5-13.5 [facility] Comment on above: Performed By: #### C BC #### [facility] [address] [place] [address] Dr. Anthony Bonilla PLT 429 103/ul Normal 150-450 [facility] Comment on above: Performed By: #### C BC #### [facility] [address] [place] [address] Dr. Anthony Boinlla RBC 2.91 106/ul Critically low 4.20-5.40 [facility] Comment on above: Performed By: #### C BC #### [facility] [address] [place] [address] Dr. Anthony Bonilla WBC 5.5 103/ul Normal 4.0-11.0 [facility] Comment on above: Performed By: #### C BC #### [facility] [address] [place] [address] Dr. Anthony Bonilla PROF CHEM 8 (BAS METB)on Anion gap [Moles/Vol] 11.0 mmol/L Normal [facility] Comment on above: Performed By: #### B MP #### [facility] [address] [place] [address] Dr. Anthony Bonilla Calcium [Mass/Vol] 9.2 mg/dL Normal 8.5-10.1 [facility] Comment on above: Performed By: #### B MP #### [facility] [address] [place] [address] Dr. Anthony Bonilla Chloride [Moles/Vol] 107 mmol/L Normal 98-107 [facility] Comment on above: Performed By: #### B MP #### [facility] [address] [place] [address] Dr. Anthony Bonilla CO2 [Moles/Vol] 27.4 mmol/L Normal 21.0-32.0 [facility] Comment on above: Performed By: #### B MP #### [facility] [address] [place] [address] Dr. Anthony Bonilla Creatinine [Mass/Vol] 1.12 mg/dL Critically high 0.55-1.02 [facility] Comment on above: Performed By: #### B MP #### [facility] [address] [place] [address] Dr. Anthony Bonilla EGFR-AF CITIZEN [place] 56 mL/min/1.73m2 Critically low >=60 [facility] Comment on above: Performed By: #### B MP #### [facility] [address] [place] [address] Dr. Anthony Bonilla EGFR-NON AF CITIZEN [place] 46 mL/min/1.73m2 Critically low >=60 [facility] Comment on above: Performed By: #### B MP #### [facility] [address] [place] [address] Dr. Anthony Bonilla Glucose [Mass/Vol] 89 mg/dL Normal 74-106 [facility] Comment on above: Performed By: #### B MP #### [facility] [address] [place] [address] Dr. Anthony Bonilla Potassium [Moles/Vol] 4.4 mmol/L Normal 3.5-5.1 [facility] Comment on above: Performed By: #### B MP #### [facility] [address] [place] [address] Dr. Anthony Bonilla Sodium [Moles/Vol] 141 mmol/L Normal 136-145 [facility] Comment on above: Performed By: #### B MP #### [facility] [address] [place] [address] Dr. Anthony Bonilla Urea nitrogen [Mass/Vol] 18.0 mg/dL Normal 7.0-18.0 [facility] Comment on above: Performed By: #### B MP #### [facility] [address] [place] [address] Dr. Anthony Bonilla Urea nitrogen/Creatinine [Mass ratio] 16.1 mg/mg Normal [facility] Comment on above: Performed By: #### B MP #### [facility] [address] [place] [address] Dr. Anthony Bonilla CBC AUTO DIFFon 11-04-2021 BASO # 0.0 103/ul Normal 0.0-0.1 [facility] Comment on above: Performed By: #### C BC #### [facility] [address] [place] [address] Dr. Anthony Bonilla Basophils/100 WBC (Bld) 0.2 % Normal 0.2-2.0 [facility] Comment on above: Performed By: #### C BC #### [facility] [address] [place] [address] Dr. Anthony Bonilla EO # 0.1 103/ul Normal 0.0-0.7 [facility] Comment on above: Performed By: #### C BC #### [facility] [address] [place] [address] Dr. Anthony Bonilla Eosinophils/100 WBC (Bld) 0.8 % Critically low 0.9-7.0 [facility] Comment on above: Performed By: #### C BC #### [facility] [address] [place] [address] Dr. Anthony Bonilla Erythrocyte distribution width (RBC) [Ratio] 16.7 % Critically high 11.0-15.0 [facility] Comment on above: Performed By: #### C BC #### [facility] [address] [place] [address] Dr. Anthony Bonilla Hematocrit (Bld) [Volume fraction] 25.6 % Critically low 36.0-48.0 [facility] Comment on above: Performed By: #### C BC #### [facility] [address] [place] [address] Dr. Anthony Bonilla Hemoglobin (Bld) [Mass/Vol] 8.5 g/dL Critically low 12.0-16.0 [facility] Comment on above: Performed By: #### C BC #### [facility] [address] [place] [address] Dr. Anthony Bonilla IG # 0.05 10e3/ul Critically high 0.00-0.03 [facility] Comment on above: Performed By: #### C BC #### [facility] [address] [place] [address] Dr. Anthony Bonilla IG % 0.5 % Normal 0.0-0.5 [facility] Comment on above: Performed By: #### C BC #### [facility] [address] [place] [address] Dr. Anthony Bonilla LYMPH # 0.6 103/ul Critically low 1.2-3.8 [facility] Comment on above: Performed By: #### C BC #### [facility] [address] [place] [address] Dr. Anthony Bonilla Lymphocytes/100 WBC (Bld) 6.2 % Critically low 20.5-60.0 [facility] Comment on above: Performed By: #### C BC #### [facility] [address] [place] [address] Dr. Anthony Bonilla MANUAL DIFF REQ NO Normal [facility] Comment on above: Performed By: #### C BC #### [facility] [address] [place] [address] Dr. Anthony Bonilla MCH (RBC) [Entitic mass] 31.6 pg Normal 26.7-34.0 [facility] Comment on above: Performed By: #### C BC #### [facility] [address] [place] [address] Dr. Anthony Bonilla MCHC (RBC) [Mass/Vol] 33.2 g/dL Normal 29.9-35.2 [facility] Comment on above: Performed By: #### C BC #### [facility] [address] [place] [address] Dr. Anthony Bonilla MCV (RBC) [Entitic vol] 95.2 fL Normal 81.0-99.0 [facility] Comment on above: Performed By: #### C BC #### [facility] [address] [place] [address] Dr. Anthony Bonilla MONO # 0.6 103/ul Normal 0.3-0.8 [facility] Comment on above: Performed By: #### C BC #### [facility] [address] [place] [address] Dr. Anthony Bonilla Monocytes/100 WBC (Bld) 6.1 % Normal 1.7-12.0 [facility] Comment on above: Performed By: #### C BC #### [facility] [address] [place] [address] Dr. Anthony Bonilla NEUT # 8.8 103/ul Critically high 1.4-6.5 [facility] Comment on above: Performed By: #### C BC #### [facility] [address] [place] [address] Dr. Anthony Bonilla Neutrophils/100 WBC (Bld) 86.2 % Critically high 43.0-75.0 [facility] Comment on above: Performed By: #### C BC #### [facility] [address] [place] [address] Dr. Anthony Bonilla Platelet mean volume (Bld) [Entitic vol] 9.8 fL Normal 9.5-13.5 [facility] Comment on above: Performed By: #### C BC #### [facility] [address] [place] [address] Dr. Anthony Bonilla PLT 156 103/ul Normal 150-450 [facility] Comment on above: Performed By: #### C BC #### [facility] [address] [place] [address] Dr. Anthony Bonilla RBC 2.69 106/ul Critically low 4.20-5.40 [facility] Comment on above: Performed By: #### C BC #### [facility] [address] [place] [address] Dr. Anthony Bonilla WBC 10.3 103/ul Normal 4.0-11.0 [facility] Comment on above: Performed By: #### C BC #### [facility] [address] [place] [address] Dr. Anthony Bonilla CULTURE URINEon 11-04-2021 CULTURE [...] F Trimethoprim/Sulfamethoxa zole <=20 S F Normal [facility] Comment on above: Performed By: #### U RCX #### [facility] [address] [place] [address] Dr. Anthony Bonilla PROF CHEM 8 (BAS METB)on Anion gap [Moles/Vol] 12.9 mmol/L Normal [facility] Comment on above: Performed By: #### U RCX #### [facility] [address] [address] [address] Anthony Bonilla Calcium [Mass/Vol] 8.6 mg/dL Normal 8.5-10.1 [facility] Comment on above: Performed By: #### U RCX #### [facility] [address] [address] [address] Anthony Bonilla Chloride [Moles/Vol] 108 mmol/L Critically high 98-107 [facility] Comment on above: Performed By: #### U RCX #### [facility] [address] [place] [address] Dr. Anthony Bonilla CO2 [Moles/Vol] 23.1 mmol/L Normal 21.0-32.0 [facility] Comment on above: Performed By: #### U RCX #### [facility] [address] [address] [address] Anthony Bonilla Creatinine [Mass/Vol] 0.98 mg/dL Normal 0.55-1.02 [facility] Comment on above: Performed By: #### U RCX #### [facility] [address] [place] [address] Dr. Anthony Bonilla EGFR-AF [place]IZ[place] >60 Normal >=60 [facility] Comment on above: Performed By: #### U RCX #### [facility] [address] [address] [address] Anthony Bonilla EGFR-NON AF [place]IZ[place] 54 mL/min/1.73m2 Critically low >=60 [facility] Comment on above: Performed By: #### U RCX #### [facility] [address] [address] [address] Anthony Bonilla Glucose [Mass/Vol] 86 mg/dL Normal 74-106 [facility] Comment on above: Performed By: #### U RCX #### [facility] [address] [place] [address] Dr. Anthony Bonilla Potassium [Moles/Vol] 4.0 mmol/L Normal 3.5-5.1 [facility] Comment on above: Performed By: #### U RCX #### [facility] [address] [place] [address] Dr. Anthony Bonilla Sodium [Moles/Vol] 140 mmol/L Normal 136-145 [facility] Comment on above: Performed By: #### U RCX #### [facility] [address] [place] [address] Dr. Anthony Bonilla Urea nitrogen [Mass/Vol] 31.0 mg/dL Critically high 7.0-18.0 [facility] Comment on above: Performed By: #### U RCX #### [facility] [address] [place] [address] Dr. Anthony Bonilla Urea nitrogen/Creatinine [Mass ratio] 31.6 mg/mg Normal [facility] Comment on above: Performed By: #### U RCX #### [facility] [address] [place] [address] Dr. Anthony Bonilla CBC AUTO DIFFon 11-03-2021 BASO # 0.0 103/ul Normal 0.0-0.1 [facility] Comment on above: Performed By: #### C BC #### [facility] [address] [place] [address] Dr. Anthony Bonilla Basophils/100 WBC (Bld) 0.3 % Normal 0.2-2.0 [facility] Comment on above: Performed By: #### C BC #### [facility] [address] [place] [address] Dr. Anthony Bonilla EO # 0.1 103/ul Normal 0.0-0.7 [facility] Comment on above: Performed By: #### C BC #### [facility] [address] [place] [address] Dr. Anthony Bonilla Eosinophils/100 WBC (Bld) 0.6 % Critically low 0.9-7.0 [facility] Comment on above: Performed By: #### C BC #### [facility] [address] [place] [address] Dr. Anthony Bonilla Erythrocyte distribution width (RBC) [Ratio] 14.0 % Normal 11.0-15.0 [facility] Comment on above: Performed By: #### C BC #### [facility] [address] [place] [address] Dr. Anthony Bonilla Hematocrit (Bld) [Volume fraction] 23.1 % Critically low 36.0-48.0 [facility] Comment on above: Result Comment: Flui ds given Performed By: #### C BC #### [facility] [address] [place] [address] Dr. Anthony Bonilla Hemoglobin (Bld) [Mass/Vol] 7.6 g/dL Critically low 12.0-16.0 [facility] Comment on above: Performed By: #### C BC #### [facility] [address] [place] [address] Dr. Anthony Bonilla IG # 0.07 10e3/ul Critically high 0.00-0.03 [facility] Comment on above: Performed By: #### C BC #### [facility] [address] [place] [address] Dr. Anthony Bonilla IG % 0.6 % Critically high 0.0-0.5 [facility] Comment on above: Performed By: #### C BC #### [facility] [address] [place] [address] Dr. Anthony Bonilla LYMPH # 0.7 103/ul Critically low 1.2-3.8 [facility] Comment on above: Performed By: #### C BC #### [facility] [address] [place] [address] Dr. Anthony Bonilla Lymphocytes/100 WBC (Bld) 5.7 % Critically low 20.5-60.0 [facility] Comment on above: Performed By: #### C BC #### [facility] [address] [place] [address] Dr. Anthony Bonilla MANUAL DIFF REQ NO Normal [facility] Comment on above: Performed By: #### C BC #### [facility] [address] [place] [address] Dr. Anthony Bonilla MCH (RBC) [Entitic mass] 32.6 pg Normal 26.7-34.0 [facility] Comment on above: Performed By: #### C BC #### [facility] [address] [address] [address] Anthony Bonilla MCHC (RBC) [Mass/Vol] 32.9 g/dL Normal 29.9-35.2 [facility] Comment on above: Performed By: #### C BC #### [facility] [address] [address] [address] Anthony Bonilla MCV (RBC) [Entitic vol] 99.1 fL Critically high 81.0-99.0 [facility] Comment on above: Performed By: #### C BC #### [facility] [address] [place] [address] Dr. Anthony Bonilla MONO # 0.8 103/ul Normal 0.3-0.8 [facility] Comment on above: Performed By: #### C BC #### [facility] [address] [place] [address] Dr. Anthony Bonilla Monocytes/100 WBC (Bld) 6.8 % Normal 1.7-12.0 [facility] Comment on above: Performed By: #### C BC #### [facility] [address] [place] [address] Dr. Anthony Bonilla NEUT # 9.8 103/ul Critically high 1.4-6.5 [facility] Comment on above: Performed By: #### C BC #### [facility] [address] [place] [address] Dr. Anthony Bonilla Neutrophils/100 WBC (Bld) 86.0 % Critically high 43.0-75.0 [facility] Comment on above: Performed By: #### C BC #### [facility] [address] [address] [address] Anthony Bonilla Platelet mean volume (Bld) [Entitic vol] 9.5 fL Normal 9.5-13.5 [facility] Comment on above: Performed By: #### C BC #### [facility] [address] [place] [address] Dr. Anthony Bonilla PLT 160 103/ul Normal 150-450 [facility] Comment on above: Performed By: #### C BC #### [facility] [address] [place] [address] Dr. Anthony Bonilla RBC 2.33 106/ul Critically low 4.20-5.40 [facility] Comment on above: Performed By: #### C BC #### [facility] [address] [address] [address] Anthony Bonilla WBC 11.4 103/ul Critically high 4.0-11.0 [facility] Comment on above: Performed By: #### C BC #### [facility] [address] [place] [address] Dr. Anthony Bonilla HEMOGLOBIN AND HEMATOCRITon 11-03-2021 Hematocrit (Bld) [Volume fraction] 27.0 % Critically low 36.0-48.0 [facility] Comment on above: Performed By: #### U RCX #### [facility] [address] [place] [address] Dr. Anthony Bonilla Hemoglobin (Bld) [Mass/Vol] 9.1 g/dL Critically low 12.0-16.0 [facility] Comment on above: Performed By: #### U RCX #### [facility] [address] [place] [address] Dr. Anthony Bonilla OCC BLD IMMUNO SCREENon 10-10 OCCULT BLOOD Positive Abnormal NEGATIVE [facility] Comment on above: Performed By: #### C BC #### [facility] [address] [place] [address] Dr. Anthony Bonilla PROF CHEM 8 (BAS METB)on Anion gap [Moles/Vol] 10.7 mmol/L Normal [facility] Comment on above: Performed By: #### C BC #### [facility] [address] [place] [address] Dr. Anthony Bonilla Calcium [Mass/Vol] 8.6 mg/dL Normal 8.5-10.1 [facility] Comment on above: Performed By: #### C BC #### [facility] [address] [address] [address] Anthony Bonilla Chloride [Moles/Vol] 107 mmol/L Normal 98-107 [facility] Comment on above: Performed By: #### C BC #### [facility] [address] [address] [address] Anthony Bonilla CO2 [Moles/Vol] 24.4 mmol/L Normal 21.0-32.0 [facility] Comment on above: Performed By: #### C BC #### [facility] [address] [address] [address] Anthony Bonilla Creatinine [Mass/Vol] 0.98 mg/dL Normal 0.55-1.02 [facility] Comment on above: Performed By: #### C BC #### [facility] [address] [place] [address] Dr. Anthony Bonilla EGFR-AF [place]IZ[place] >60 Normal >=60 [facility] Comment on above: Performed By: #### C BC #### [facility] [address] [place] [address] Dr. Anthony Bonilla EGFR-NON AF [place]IZ[place] 54 mL/min/1.73m2 Critically low >=60 [facility] Comment on above: Performed By: #### C BC #### [facility] [address] [place] [address] Dr. Anthony Bonilla Glucose [Mass/Vol] 98 mg/dL Normal 74-106 [facility] Comment on above: Performed By: #### C BC #### [facility] [address] [place] [address] Dr. Anthony Bonilla Potassium [Moles/Vol] 4.1 mmol/L Normal 3.5-5.1 [facility] Comment on above: Performed By: #### C BC #### [facility] [address] [place] [address] Dr. Anthony Bonilla Sodium [Moles/Vol] 138 mmol/L Normal 136-145 [facility] Comment on above: Performed By: #### C BC #### [facility] [address] [place] [address] Dr. Anthony Bonilla Urea nitrogen [Mass/Vol] 43.0 mg/dL Critically high 7.0-18.0 [facility] Comment on above: Performed By: #### C BC #### [facility] [address] [place] [address] Dr. Anthony Bonilla Urea nitrogen/Creatinine [Mass ratio] 43.9 mg/mg Normal [facility] Comment on above: Performed By: #### C BC #### [facility] [address] [place] [address] Dr. Anthony Bonilla TYPE AND SCREENon 11-03-2021 TYPE AND SCREEN Negative Normal [facility] Comment on above: Performed By: #### C BC #### [facility] [address] [place] [address] Dr. Anthony Bonilla CBC AUTO DIFFon 11-02-2021 BASO # 0.0 103/ul Normal 0.0-0.1 [facility] Comment on above: Performed By: #### U RCX #### [facility] [address] [place] [address] Dr. Anthony Bonilla Basophils/100 WBC (Bld) 0.3 % Normal 0.2-2.0 [facility] Comment on above: Performed By: #### U RCX #### [facility] [address] [place] [address] Dr. Anthony Bonilla EO # 0.0 103/ul Normal 0.0-0.7 [facility] Comment on above: Performed By: #### U RCX #### [facility] [address] [place] [address] Dr. Anthony Bonilla Eosinophils/100 WBC (Bld) 0.1 % Critically low 0.9-7.0 [facility] Comment on above: Performed By: #### U RCX #### [facility] [address] [place] [address] Dr. Anthony Bonilla Erythrocyte distribution width (RBC) [Ratio] 13.9 % Normal 11.0-15.0 [facility] Comment on above: Performed By: #### U RCX #### [facility] [address] [address] [address] Anthony Bonilla Hematocrit (Bld) [Volume fraction] 31.8 % Critically low 36.0-48.0 [facility] Comment on above: Performed By: #### U RCX #### [facility] [address] [address] [address] Anthony Bonilla Hemoglobin (Bld) [Mass/Vol] 10.5 g/dL Critically low 12.0-16.0 [facility] Comment on above: Performed By: #### U RCX #### [facility] [address] [address] [address] Anthony Bonilla IG # 0.07 10e3/ul Critically high 0.00-0.03 [facility] Comment on above: Performed By: #### U RCX #### [facility] [address] [place] [address] Dr. Anthony Bonilla IG % 0.5 % Normal 0.0-0.5 [facility] Comment on above: Performed By: #### U RCX #### [facility] [address] [address] [address] Anthony Bonilla LYMPH # 0.9 103/ul Critically low 1.2-3.8 [facility] Comment on above: Performed By: #### U RCX #### [facility] [address] [place] [address] Dr. Anthony Bonilla Lymphocytes/100 WBC (Bld) 6.1 % Critically low 20.5-60.0 [facility] Comment on above: Performed By: #### U RCX #### [facility] [address] [address] [address] Anthony Bonilla MANUAL DIFF REQ NO Normal [facility] Comment on above: Performed By: #### U RCX #### [facility] [address] [address] [address] Anthony Bonilla MCH (RBC) [Entitic mass] 32.7 pg Normal 26.7-34.0 [facility] Comment on above: Performed By: #### U RCX #### [facility] [address] [address] [address] Anthony Bonilla MCHC (RBC) [Mass/Vol] 33.0 g/dL Normal 29.9-35.2 [facility] Comment on above: Performed By: #### U RCX #### [facility] [address] [address] [address] Anthony Bonilla MCV (RBC) [Entitic vol] 99.1 fL Critically high 81.0-99.0 [facility] Comment on above: Performed By: #### U RCX #### [facility] [address] [address] [address] Anthony Bonilla MONO # 1.0 103/ul Critically high 0.3-0.8 [facility] Comment on above: Performed By: #### U RCX #### [facility] [address] [place] [address] Dr. Anthony Bonilla Monocytes/100 WBC (Bld) 6.8 % Normal 1.7-12.0 [facility] Comment on above: Performed By: #### U RCX #### [facility] [address] [address] [address] Anthony Bonilla NEUT # 12.1 103/ul Critically high 1.4-6.5 [facility] Comment on above: Performed By: #### U RCX #### [facility] [address] [address] [address] Anthony Bonilla Neutrophils/100 WBC (Bld) 86.2 % Critically high 43.0-75.0 [facility] Comment on above: Performed By: #### U RCX #### [facility] [address] [address] [address] Anthony Bonilla Platelet mean volume (Bld) [Entitic vol] 9.8 fL Normal 9.5-13.5 [facility] Comment on above: Performed By: #### U RCX #### [facility] [address] [address] [address] Anthony Bonilla PLT 175 103/ul Normal 150-450 [facility] Comment on above: Performed By: #### U RCX #### [facility] [address] [address] [address] Anthony Bonilla RBC 3.21 106/ul Critically low 4.20-5.40 [facility] Comment on above: Performed By: #### U RCX #### [facility] [id number] Anthony Bonilla WBC 14.0 103/ul Critically high 4.0-11.0 [facility] Comment on above: Performed By: #### U RCX #### [facility] [address] [place], [place] [id number] Dr. Anthony Bonilla CT HEAD WO CONon [...] HERNANDO HAMLIN Date: 2021-11-01 22:36 Normal [facility] PROF CHEM 8 (BAS METB)on Anion gap [Moles/Vol] 12.2 mmol/L Normal [facility] Comment on above: Performed By: #### C BC #### [facility] [address] [place] [address] Dr. Anthony Bonilla Calcium [Mass/Vol] 8.7 mg/dL Normal 8.5-10.1 [facility] Comment on above: Performed By: #### C BC #### [facility] [address] [place] [address] Dr. Anthony Bonilla Chloride [Moles/Vol] 103 mmol/L Normal 98-107 [facility] Comment on above: Performed By: #### C BC #### [facility] [address] [address] [address] Anthony Bonilla CO2 [Moles/Vol] 25.7 mmol/L Normal 21.0-32.0 [facility] Comment on above: Performed By: #### C BC #### [facility] [address] [address] [address] Anthony Bonilla Creatinine [Mass/Vol] 1.08 mg/dL Critically high 0.55-1.02 [facility] Comment on above: Performed By: #### C BC #### [facility] [address] [place] [address] Dr. Anthony Bonilla EGFR-AF CITIZEN [place] 58 mL/min/1.73m2 Critically low >=60 [facility] Comment on above: Performed By: #### C BC #### [facility] [address] [place] [address] Dr. Anthony Bonilla EGFR-NON AF CITIZEN OF [place] 48 mL/min/1.73m2 Critically low >=60 [facility] Comment on above: Performed By: #### C BC #### [facility] [address] [place] [address] Dr. Anthony Bonilla Glucose [Mass/Vol] 84 mg/dL Normal 74-106 [facility] Comment on above: Performed By: #### C BC #### [facility] [address] [place] [address] Dr. Anthony Bonilla Potassium [Moles/Vol] 4.9 mmol/L Normal 3.5-5.1 [facility] Comment on above: Performed By: #### C BC #### [facility] [address] [address] [address] Anthony Bonilla Sodium [Moles/Vol] 136 mmol/L Normal 136-145 [facility] Comment on above: Performed By: #### C BC #### [facility] [address] [address] [address] Anthony Bonilla Urea nitrogen [Mass/Vol] 33.0 mg/dL Critically high 7.0-18.0 [facility] Comment on above: Performed By: #### C BC #### [facility] [address] [address] [address] Anthony Bonilla Urea nitrogen/Creatinine [Mass ratio] 30.6 mg/mg Normal [facility] Comment on above: Performed By: #### C BC #### [facility] [id number] Anthony Bonilla XR CHEST 1 Von [...] GIANA HOLLY Date: 2021-11-01 22:05 Normal [facility] CARDIAC DARWIN ADMITon 022 CK [Catalytic activity/Vol] 92 U/L Normal 26-192 [facility] Comment on above: Performed By: #### C BC #### [facility] [address] [place] [address] Dr. Anthony Bonilla CK.MB [Mass/Vol] 1.73 ng/mL Normal <=3.60 [facility] Comment on above: Performed By: #### C BC #### [facility] [address] [place] [address] Dr. Anthony Bonilla HSTROP 20.0 pg/mL Normal 4.0-51.3 [facility] Comment on above: Result Comment: CUT- OFF POINTS HAVE BEEN ESTABLISHED BASED ON THE FOURTH UNIVERSAL DEFINITIONS OF MYOCARDIAL INFARCTION. THE UPPER REFERENCE LIMIT (URL) OF TROPONIN, DEFINED THE 99TH PERCENTILE OF cTnI DISTRIBUTION IN A REFERENCE POPULATION, HAS BEEN CONFIRMED THE DECISION THRESHOLD FOR MS DIAGNOSIS. Performed By: #### C BC #### [facility] [address] [place] [address] Dr. Anthony Bonilla CANDIDA 58 ng/mL Normal 9-82 [facility] Comment on above: Performed By: #### C BC #### [facility] [address] [address] [address] Anthony Bonilla CBC AUTO DIFFon 11-01-2021 BASO # 0.0 103/ul Normal 0.0-0.1 [facility] Comment on above: Performed By: #### U RCX #### [facility] [address] [address] [address] Anthony Bonilal Basophils/100 WBC (Bld) 0.2 % Normal 0.2-2.0 [facility] Comment on above: Performed By: #### U RCX #### [facility] [address] [place] [address] Dr. Anthony Bonilla EO # 0.0 103/ul Normal 0.0-0.7 [facility] Comment on above: Performed By: #### U RCX #### [facility] [address] [place] [address] Dr. Anthony Bonilla Eosinophils/100 WBC (Bld) 0.0 % Critically low 0.9-7.0 [facility] Comment on above: Performed By: #### U RCX #### [facility] [address] [place] [address] Dr. Anthony Bonilla Erythrocyte distribution width (RBC) [Ratio] 14.1 % Normal 11.0-15.0 [facility] Comment on above: Performed By: #### U RCX #### [facility] [address] [place] [address] Dr. Anthony Bonilla Hematocrit (Bld) [Volume fraction] 36.0 % Normal 36.0-48.0 [facility] Comment on above: Performed By: #### U RCX #### [facility] [address] [address] [address] Anthony Bonilla Hemoglobin (Bld) [Mass/Vol] 12.1 g/dL Normal 12.0-16.0 [facility] Comment on above: Performed By: #### U RCX #### [facility] [address] [place] [address] Dr. Anthony Bonilla IG # 0.11 10e3/ul Critically high 0.00-0.03 [facility] Comment on above: Performed By: #### U RCX #### [facility] [address] [address] [address] Anthony Bonilla IG % 0.5 % Normal 0.0-0.5 [facility] Comment on above: Performed By: #### U RCX #### [facility] [address] [address] [address] Anthony Bonilla LYMPH # 0.7 103/ul Critically low 1.2-3.8 [facility] Comment on above: Performed By: #### U RCX #### [facility] [address] [address] [address] Anthony Bonilla Lymphocytes/100 WBC (Bld) 3.2 % Critically low 20.5-60.0 [facility] Comment on above: Performed By: #### U RCX #### [facility] [address] [address] [address] Anthony Bonilla MANUAL DIFF REQ NO Normal [facility] Comment on above: Performed By: #### U RCX #### [facility] [address] [address] [address] Anthony Bonilla MCH (RBC) [Entitic mass] 33.0 pg Normal 26.7-34.0 [facility] Comment on above: Performed By: #### U RCX #### [facility] [address] [address] [address] Anthony Bonilla MCHC (RBC) [Mass/Vol] 33.6 g/dL Normal 29.9-35.2 [facility] Comment on above: Performed By: #### U RCX #### [facility] [address] [address] [address] Anthony Bonilla MCV (RBC) [Entitic vol] 98.1 fL Normal 81.0-99.0 [facility] Comment on above: Performed By: #### U RCX #### [facility] [address] [address] [address] Anthony Bonilla MONO # 1.1 103/ul Critically high 0.3-0.8 [facility] Comment on above: Performed By: #### U RCX #### [facility] [address] [place] [address] Dr. Anthony Bonilla Monocytes/100 WBC (Bld) 4.8 % Normal 1.7-12.0 [facility] Comment on above: Performed By: #### U RCX #### [facility] [address] [place] [address] Dr. Anthony Bonilla NEUT # 20.3 103/ul Critically high 1.4-6.5 [facility] Comment on above: Performed By: #### U RCX #### [facility] [address] [place] [address] Dr. Anthony Bonilla Neutrophils/100 WBC (Bld) 91.3 % Critically high 43.0-75.0 [facility] Comment on above: Performed By: #### U RCX #### [facility] [address] [place] [address] Dr. Anthony Bonilla Platelet mean volume (Bld) [Entitic vol] 10.8 fL Normal 9.5-13.5 [facility] Comment on above: Performed By: #### U RCX #### [facility] [address] [place] [address] Dr. Anthony Bonilla PLT 179 103/ul Normal 150-450 [facility] Comment on above: Performed By: #### U RCX #### [facility] [address] [place] [address] Dr. Anthony Bonilla RBC 3.67 106/ul Critically low 4.20-5.40 [facility] Comment on above: Performed By: #### U RCX #### [facility] [address] [place] [address] Dr. Anthony Bonilla WBC 22.2 103/ul Critically high 4.0-11.0 [facility] Comment on above: Performed By: #### U RCX #### [facility] [address] [place] [address] Dr. Anthony Bonilla CULTURE BLOODon 11-01-2021 Microscopic examination of blood, culture Culture Observations: NO GROWTH AT 5 DAYS. Normal [facility] Comment on above: Performed By: #### B LDCX2 #### [facility] [address] [place] [address] Dr. Anthony Bonilla Performed By: #### C BC #### [facility] [address] [place] [address] Dr. Anthony Bonilla Covid-19 PCR ([facility])on 10-10 SARS-CoV-2 (COVID-19) RNA OH+probe Ql (Unsp spec) Detected Critically abnormal NOT DETECTED [facility] Comment on above: Result Comment: This test is not yet approved or cleared by the [place] FDA. When there are no FDA-approved or cleared tests available, and other criteria are met, FDA can make tests available under an emergency access mechanism called an Emergency Use Authorization (EUA). The EUA for this test is supported by the [place] of Health and Human Service's declaration that [...] used). Performed By: #### C BC #### [facility] [address] [place] [address] Dr. Anthony Bonilla ER URINE PROFILEon Bilirubin Ql (U) Negative Normal NEGATIVE [facility] Comment on above: Performed By: #### U RCX #### [facility] [address] [place] [address] Dr. Anthony Bonilla Clarity (U) CLEAR Normal CLEAR [facility] Comment on above: Performed By: #### U RCX #### [facility] [address] [place] [address] Dr. Anthony Bonilla Color (U) LT. YELLOW Normal YELLOW [facility] Comment on above: Performed By: #### U RCX #### [facility] [address] [place] [address] Dr. Anthony Bonilla ERUAHD A micrscopic examina tion will be performed if indicated. Normal [facility] Comment on above: Performed By: #### U RCX #### [facility] [address] [place] [address] Dr. Anthony Bonilla Glucose Ql (U) Negative Normal NEGATIVE [facility] Comment on above: Performed By: #### U RCX #### [facility] [address] [place] [address] Dr. Anthony Bonilla Hemoglobin Ql (U) TRACE-INTACT Abnormal NEGATIVE [facility] Comment on above: Performed By: #### U RCX #### [facility] [address] [place] [address] Dr. Anthony Bonilla Ketones Ql (U) Negative Normal NEGATIVE [facility] Comment on above: Performed By: #### U RCX #### [facility] [address] [place] [address] Dr. Anthony Bonilla LEUKOCYTES Negative Normal NEGATIVE [facility] Comment on above: Performed By: #### U RCX #### [facility] [address] [place] [address] Dr. Anthony Bonilla Nitrite Ql (U) Negative Normal NEGATIVE [facility] Comment on above: Performed By: #### U RCX #### [facility] [address] [place] [address] Dr. Anthony Bonilla pH (U) 6.0 [pH] Normal 5-9 [facility] Comment on above: Performed By: #### U RCX #### [facility] [address] [place] [address] Dr. Anthony Bonilla SPEC GRAVITY 1.020 Normal 1.005-<=1. 025 [facility] Comment on above: Performed By: #### U RCX #### [facility] [address] [place] [address] Dr. Anthony Bonilla UA PROTEIN Negative Normal NEGATIVE/ TRACE [facility] Comment on above: Performed By: #### U RCX #### [facility] [address] [place] [address] Dr. Anthony Bonilla UR MICRO IND INDICATED Normal [facility] Comment on above: Performed By: #### U RCX #### [facility] [address] [place] [address] Dr. Anthony Bonilla Urobilinogen Qn (U) 1.0 {Gen'U}/dL Normal 0.2 - 1. 0 [facility] Comment on above: Performed By: #### U RCX #### [facility] [address] [place] [address] Dr. Anthony Bonilla LACTATE/LACTIC ACIDon 2021 Lactate [Moles/Vol] 1.6 mmol/L Normal 0.4-1.9 [facility] Comment on above: Performed By: #### C BC #### [facility] [address] [place] [address] Dr. Anthony Bonilla PROF 14(COMP METB)on 022 Albumin [Mass/Vol] 3.2 g/dL Critically low 3.4-5.0 [facility] Comment on above: Performed By: #### C BC #### [facility] [address] [place] [address] Dr. Anthony Bonilla Albumin/Globulin [Mass ratio] 0.9 {ratio} Normal [facility] Comment on above: Performed By: #### C BC #### [facility] [address] [place] [address] Dr. Anthony Bonilla ALP [Catalytic activity/Vol] 26 U/L Critically low 46-116 [facility] Comment on above: Performed By: #### C BC #### [facility] [address] [place] [address] Dr. Anthony Bonilla ALT [Catalytic activity/Vol] 32 U/L Normal 14-59 [facility] Comment on above: Performed By: #### C BC #### [facility] [address] [place] [address] Dr. Anthony Bonilla Anion gap [Moles/Vol] 11.5 mmol/L Normal [facility] Comment on above: Performed By: #### C BC #### [facility] [address] [place] [address] Dr. Anthony Bonilla AST [Catalytic activity/Vol] 16 U/L Normal 15-37 [facility] Comment on above: Performed By: #### C BC #### [facility] [address] [address] [address] Anthony Bonilla Bilirubin [Mass/Vol] 1.2 mg/dL Critically high 0.2-1.0 [facility] Comment on above: Performed By: #### C BC #### [facility] [address] [address] [address] Anthony Bonilla Calcium [Mass/Vol] 9.0 mg/dL Normal 8.5-10.1 [facility] Comment on above: Performed By: #### C BC #### [facility] [address] [address] [address] Anthony Bonilla Chloride [Moles/Vol] 102 mmol/L Normal 98-107 [facility] Comment on above: Performed By: #### C BC #### [facility] [address] [address] [address] Anthony Bonilla CO2 [Moles/Vol] 25.2 mmol/L Normal 21.0-32.0 [facility] Comment on above: Performed By: #### C BC #### [facility] [address] [address] [address] Anthony Bonilla Creatinine [Mass/Vol] 1.25 mg/dL Critically high 0.55-1.02 [facility] Comment on above: Performed By: #### C BC #### [facility] [address] [address] [address] Anthony Bonilla EGFR-AF [place]IZ[place] 49 mL/min/1.73m2 Critically low >=60 [facility] Comment on above: Performed By: #### C BC #### [facility] [address] [address] [address] Anthony Bonilla EGFR-NON AF [place]IZ[place] 41 mL/min/1.73m2 Critically low >=60 [facility] Comment on above: Performed By: #### C BC #### [facility] [address] [address] [address] Anthony Bonilla Globulin (S) [Mass/Vol] 3.4 g/dL Normal [facility] Comment on above: Performed By: #### C BC #### [facility] [address] [address] [address] Anthony Bonilla Glucose [Mass/Vol] 102 mg/dL Normal 74-106 [facility] Comment on above: Performed By: #### C BC #### [facility] [address] [address] [address] Anthony Bonilla Potassium [Moles/Vol] 4.7 mmol/L Normal 3.5-5.1 [facility] Comment on above: Performed By: #### C BC #### [facility] [address] [address] [address] Anthony Bonilla Protein [Mass/Vol] 6.6 g/dL Normal 6.4-8.2 [facility] Comment on above: Performed By: #### C BC #### [facility] [address] [address] [address] Anthony Bonilla Sodium [Moles/Vol] 134 mmol/L Critically low 136-145 [facility] Comment on above: Performed By: #### C BC #### [facility] [address] [address] [address] Anthony Bonilla Urea nitrogen [Mass/Vol] 33.0 mg/dL Critically high 7.0-18.0 [facility] Comment on above: Performed By: #### C BC #### [facility] [address] [address] [address] Anthony Bonilla Urea nitrogen/Creatinine [Mass ratio] 26.4 mg/mg Normal [facility] Comment on above: Performed By: #### C BC #### [facility] [address] [address] [address] Anthony Bonilla PROTIMEon 11-01-2021 INR Coag (PPP) [Relative time] 0.97 {INR} Normal [facility] Comment on above: Performed By: #### U RCX #### [facility] [address] [address] [address] Anthony Bonilla INR GUIDELINES SEE BELOW Normal [facility] Comment on above: Result Comment: MEGAN RED INR: 2.0 - 3.0 CONDITIONS NOT LISTED BELOW 2.5 - 3.5 FOR PROSTHETIC HEART VALVE REPLACEMENT 2.5 - 3.5 RECURRENT THROMBOSIS Performed By: #### U RCX #### [facility] [address] [place] [address] Dr. Anthony Bonilla PT Coag (PPP) [Time] 10.5 s Normal 9.0-11.6 [facility] Comment on above: Performed By: #### U RCX #### [facility] [address] [place] [address] Dr. Anthony Bonilla PTTon 11-01-2021 aPTT Coag (Bld) [Time] 27.8 s Normal 22.3-36.2 [facility] Comment on above: Performed By: #### U RCX #### [facility] [address] [place] [address] Dr. Anthony Bonilla TSHon 11-01-2021 TSH 1.011 uIU/mL Normal 0.358-3.74 0 [facility] Comment on above: Performed By: #### C BC #### [facility] [address] [place] [address] Dr. Anthony Bonilla URINE MICROSCOPIC ONLYon BACTERIA LARGE Abnormal NONE SEEN [facility] Comment on above: Performed By: #### U RCX #### [facility] [address] [place] [address] Dr. Anthony Bonilla Bacteria identified Cx Nom (U) INDICATED Normal [facility] Comment on above: Performed By: #### U RCX #### [facility] [address] [place] [address] Dr. Anthony Bonilla CAST NONE SEEN Normal NONE SEEN [facility] Comment on above: Performed By: #### U RCX #### [facility] [address] [place] [address] Dr. Anthony Bonilla Crystals LM Nom (Urine sed) NONE SEEN Normal NONE SEEN [facility] Comment on above: Performed By: #### U RCX #### [facility] [address] [place] [address] Dr. Anthony Bonilla Epithelial cells LM Ql (Urine sed) FEW Abnormal NONE SEEN /RARE [facility] Comment on above: Performed By: #### U RCX #### [facility] [address] [place] [address] Dr. Anthony Bonilla MUCOUS NONE SEEN Normal NONE SEEN [facility] Comment on above: Performed By: #### U RCX #### [facility] [address] [place] [address] Dr. Anthony Bonilla RBC 2-5 Abnormal 0-2 [facility] Comment on above: Performed By: #### U RCX #### [facility] [address] [place] [address] Dr. Anthony Bonilla WBC 0-2 Abnormal NONE SEEN [facility] Comment on above: Performed By: #### U RCX #### [facility] [address] [place] [address] Dr. Anthony Bonilla Covid-19 PCR ([facility])on SARS-CoV-2 (COVID-19) RNA OH+probe Ql (Unsp spec) Detected Critically abnormal NOT DETECTED [facility] Comment on above: Result Comment: This test is not yet approved or cleared by the [place] FDA. When there are no FDA-approved or cleared tests available, and other criteria are met, FDA can make tests available under an emergency access mechanism called an Emergency Use Authorization (EUA). The EUA for this test is supported by the [place] of Health and Human Service's declaration that [...] used). Performed By: #### C BC #### [facility] [address] [place] [address] Dr. Anthony Bonilla Covid-19 PCR ([facility])on SARS-CoV-2 (COVID-19) RNA OH+probe Ql (Unsp spec) Not detected Normal NOT DETECTED [facility] Comment on above: Result Comment: This test is not yet approved or cleared by the [place] FDA. When there are no FDA-approved or cleared tests available, and other criteria are met, FDA can make tests available under an emergency access mechanism called an Emergency Use Authorization (EUA). The EUA for this test is supported by the [place] of Health and Human Service's (HHS's) declaration [...] SARS-CoV-2. Performed By: #### U RCX #### [facility] [address] [place] [address] Dr. 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 Any time this information is not complete, it is the try out person?s responsibility to query the physician. Based on [...] timely attention to this matter. Ambar Manley [employer] Ext [id number] [Electronically Signed on: 10/18/2019 21:40 EDT] Mi Licea DO [Verified on: 10/18/2019 21:40 EDT] Mi Licea DO [Transcribed on: 10/02/2019 11:06 EDT] [facility] Consent Formson 09-29-2019 Consent Forms [id number]#1.00OTGTI FF [facility] Medication Managementon 09-09 Medication Management [id number]#1.00OTGTI [facility] Outside Recordson 09-29-2019 Outside Records [id number]#1.00OTGTI [facility] Outside Records [id number]#[facility] Provider Orderson 09-29-2019 Provider Orders [id number]#1.00[facility] Telemetry Stripson 0 Telemetry Strips [id number][facility] Diff 1on 2019 Auto Garrard % 11 % Normal -12 [facility] Comment on above: Performed By: #### 1 [id number], 56946740, 8149544 #### [facility] (DEFAULT) [address] [place] [address] 03215 Baso Abs# 0.0 x10 Normal 0.0-0.2 [facility] Comment on above: Performed By: #### 1 [id number], 52418896, 4054131 #### [facility] (DEFAULT) [address] [place] [address] 42514 Basophils/100 WBC (Bld) 0.1 % Low 0.2-2.0 [facility] Comment on above: Performed By: #### 1 [id number], 90041171, 6323451 #### [facility] (DEFAULT) [address] [place] [address] 68163 Eos Abs# 0.2 x10 Normal 0.0-0.4 [facility] Comment on above: Performed By: #### 1 [id number], 07624329, 5485546 #### [facility] (DEFAULT) [address] [place] [address] 96131 Eosinophils/100 WBC (Bld) 2.2 % Normal 0.9-4.0 [facility] Comment on above: Performed By: #### 1 [id number], 60041450, 5650833 #### [facility] (DEFAULT) [address] [place] [address] Lymphocytes (Bld) [#/Vol] 0.6 x10 Low 1.3-2.9 [facility] Comment on above: Performed By: #### 1 [id number], 86242418, 1864532 #### [facility] (DEFAULT) [address] [place] [address] Lymphocytes/100 WBC (Bld) 6 % Low 14-48 [facility] Comment on above: Performed By: #### 1 [id number], 38386120, 3348093 #### [facility] (DEFAULT) [address] [place] [address] Garrard Abs# 1.0 x10 High 0.0-0.8 [facility] Comment on above: Performed By: #### 1 [id number], 35513541, 7237289 #### [facility] (DEFAULT) [address] [place] [address] Neut Abs# 7.2 x10 Normal 1.5-9.2 [facility] Comment on above: Performed By: #### 1 [id number], 50725226, 1540915 #### [facility] (DEFAULT) [address] [place] [address] Neutrophils/100 WBC (Bld) 80 % Normal 44-88 [facility] Comment on above: Performed By: #### 1 [id number], 73335069, 9088663 #### [facility] (DEFAULT) [address] [place] [address] CBC w/ Auto Diffon 202 0 Erythrocyte distribution width (RBC) [Ratio] 14.4 % Normal 11.5-15.0 [facility] Comment on above: Performed By: #### 1 [id number], 91616973, 3358864 #### [facility] (DEFAULT) [address] [place] [address] Hematocrit (Bld) [Volume fraction] 36.2 % Normal 33.7-40.4 [facility] Comment on above: Performed By: #### 1 [id number], 70640635, 9241721 #### [facility] (DEFAULT) [address] [place] [address] 88835 Hemoglobin (Bld) [Mass/Vol] 11.9 g/dL Normal 11.3-15.9 [facility] Comment on above: Performed By: #### 1 [id number], 45635753, 8311312 #### [facility] (DEFAULT) [address] [place] [address] 80466 Man Diff? Auto Normal [facility] Comment on above: Performed By: #### 1 [id number], 15126107, 4790255 #### [facility] (DEFAULT) [address] [place] [address] 32841 MCH (RBC) [Entitic mass] 33 pg Normal 24-34 [facility] Comment on above: Performed By: #### 1 [id number], 71274866, 0931410 #### [facility] (DEFAULT) [address] [place] [address] 11914 MCHC (RBC) [Mass/Vol] 33 g/dL Normal 26-37 [facility] Comment on above: Performed By: #### 1 [id number], 20259065, 4704745 #### [facility] (DEFAULT) [address] [place] [address] 42119 MCV (RBC) [Entitic vol] 100 fL Normal 81-100 [facility] Comment on above: Performed By: #### 1 [id number], 41278553, 5307607 #### [facility] (DEFAULT) [address] [place] [address] 76324 Platelet mean volume (Bld) [Entitic vol] 9.6 fL Normal 6.3-10.2 [facility] Comment on above: Performed By: #### 1 [id number], 95774352, 6804672 #### [facility] (DEFAULT) [address] [place] [address] 95851 Platelets (Bld) [#/Vol] 286 x10 Normal 138-427 [facility] Comment on above: Performed By: #### 1 [id number], 02900470, 6858664 #### [facility] (DEFAULT) [address] [place] [address] RBC (Bld) [#/Vol] 3.61 x10 Low 3.70-5.30 [facility] Comment on above: Performed By: #### 1 [id number], 63297171, 9989471 #### [facility] (DEFAULT) [address] [place] [address] 49508 WBC (Bld) [#/Vol] 9.0 x10 [facility] Comment on above: Performed By: #### 1 [id number], 20568024, 8383566 #### [facility] (DEFAULT) [address] [place] [address] 34387 Education Noteon 2019 Education Note Education Materials [...] done to rule of a DVT. Normal [facility] Extra Greenon 2019 Tube Collected Yes [facility] Comment on above: Performed By: #### 1 [id number], 99322609, 0465927 #### [facility] (DEFAULT) [address] [place] [address] 13223 Inpatient Patient Summaryon 2019 Inpatient Patient Summary [address] [address] Patient Discharge Instructions Name: VINCENT HSU : 1935 Patient Address: [address] [place] [address] Primary Care Provider: Name: Gypsy Mcmahon MD After you are discharged if you find you have any questions, please, call [phone] ext [phone] to speak to a nurse. Discharge Diagnosis: Primary localized osteoarthritis of left hip Prescription Information: If you have been given a prescription for narcotics, seek immediate medical attention if you have any difficulty breathing or any sudden status changes such as confusion and sleepiness. If you or anyone you know is experiencing suicidal thoughts, mental health, alcohol and/or drug addiction problems; contact the [facility] 31/08 Crisis Hotline -Text 4HDSK to 088693. If you received any narcotics, sedation, or [...] business decisions or sign any legal documents [facility] would like to thank you for allowing us to assist you with your healthcare needs. The following includes patient education materials and information regarding your injury/illness. HSU VINCENT Evangelista has been given the following list of follow-up instructions, prescriptions, and patient education materials: Follow-up Instructions With: Address: When: Mi Licea [address] [place] [address] [address] [place] [address] Business (2) 10/03/2019 8:30 AM With: Address: When: Gypsy Mcmahon [address] [place] [address] [place] [address] Business (1) Medications During the [...] for Disease Control and Prevention October 2013 [facility] Progress Note - Nurseon 09-09 [facility] Pt. transferred to bed times one [...] on: 2019 11:52 EDT] Pan Regalado RN [facility] Progress Note - Nurse Pt. reports interm ittent left upper inner thigh grabbing pain. Pt. moans during these episodes. Tramadol given. Pt. repostioned for comfort. No change in the muscle spasms. Dr. Chacko informed in person. No orders received. [Electronically Signed on: 2019 09:32 EDT] Pan Regalado RN [Verified on: 2019 09:32 EDT] Pan Regalado RN [facility] Progress Note-Physicianon Progress Note-Physician DATE OF [...] PROGNOSIS: Good. Devorah Redd DO JOB #: [id number] bk [Electronically Signed on: 2019 13:04 EDT] DEVORAH REDD DO [Verified on: 2019 13:04 EDT] DEVORAH REDD DO [Transcribed on: 2019 11:05 EDT] GDU Normal [facility] .Auto Diff 1on 09-27-2019 Auto Garrard % 9 % Normal 1-12 [facility] Comment on above: Performed By: #### 1 [id number], [id number], 0725815 #### [facility] (DEFAULT) [address] [place] [address] 58010 Baso Abs# 0.0 x10 Normal 0.0-0.2 [facility] Comment on above: Performed By: #### 1 [id number], 01052522, 5930893 #### [facility] (DEFAULT) [address] [place] [address] 18141 Basophils/100 WBC (Bld) 0.1 % Low 0.2-2.0 [facility] Comment on above: Performed By: #### 1 [id number], 18404182, 3280814 #### [facility] (DEFAULT) [address] [place] [address] 31829 Eos Abs# 0.2 x10 Normal 0.0-0.4 [facility] Comment on above: Performed By: #### 1 [id number], 92688001, 3873578 #### [facility] (DEFAULT) [address] [place] [address] 16392 Eosinophils/100 WBC (Bld) 1.6 % Normal 0.9-4.0 [facility] Comment on above: Performed By: #### 1 [id number], 03819588, 9600756 #### [facility] (DEFAULT) [address] [place] [address] 89220 Lymphocytes (Bld) [#/Vol] 0.5 x10 Low 1.3-2.9 [facility] Comment on above: Performed By: #### 1 [id number], 67157055, 4614646 #### [facility] (DEFAULT) [address] [place] [address] 22446 Lymphocytes/100 WBC (Bld) 4 % Low 14-48 [facility] Comment on above: Performed By: #### 1 [id number], 85053828, 3133971 #### [facility] (DEFAULT) [address] [place] [address] 38716 Garrard Abs# 1.2 x10 High 0.0-0.8 [facility] Comment on above: Performed By: #### 1 [id number], 56725980, 0047802 #### [facility] (DEFAULT) [address] [place] [address] 92663 Neut Abs# 11.5 x10 High 1.5-9.2 [facility] Comment on above: Performed By: #### 1 [id number], 92020962, 1164004 #### [facility] (DEFAULT) [address] [place] [address] 81691 Neutrophils/100 WBC (Bld) 86 % Normal 44-88 [facility] Comment on above: Performed By: #### 1 [id number], 88735265, 8516402 #### [facility] (DEFAULT) [address] [place] [address] C Urineon 09-27-2019 C Urine Urine Culture [...] <=4 Verified Tri/Sulf S <=2/38 Verified Normal [facility] Comment on above: Performed By: #### 7 [id number], 88053272, [id number] #### [facility] (DEFAULT) [address] [place] [address] CBC w/ Auto Diffon 0 Erythrocyte distribution width (RBC) [Ratio] 14.5 % Normal 11.5-15.0 [facility] Comment on above: Performed By: #### 1 [id number], 83000833, 5364472 #### [facility] (DEFAULT) [address] [place] [address] Hematocrit (Bld) [Volume fraction] 39.2 % Normal 33.7-40.4 [facility] Comment on above: Performed By: #### 1 [id number], 62629998, 6101227 #### [facility] (DEFAULT) [address] [place] [address] Hemoglobin (Bld) [Mass/Vol] 12.8 g/dL Normal 11.3-15.9 [facility] Comment on above: Performed By: #### 1 [id number], 99754774, 3773303 #### [facility] (DEFAULT) [address] [place] [address] 81940 Man Diff? Auto Normal [facility] Comment on above: Performed By: #### 1 [id number], 69218382, 0672401 #### [facility] (DEFAULT) [address] [place] [address] 04924 MCH (RBC) [Entitic mass] 33 pg Normal 24-34 [facility] Comment on above: Performed By: #### 1 [id number], 56555537, 8728433 #### [facility] (DEFAULT) [address] [place] [address] 77455 MCHC (RBC) [Mass/Vol] 33 g/dL Normal 26-37 [facility] Comment on above: Performed By: #### 1 [id number], 16529582, 8534048 #### [facility] (DEFAULT) [address] [place] [address] MCV (RBC) [Entitic vol] 101 fL High 81-100 [facility] Comment on above: Performed By: #### 1 [id number], 70352961, 0137879 #### [facility] (DEFAULT) [address] [place] [address] 41493 Platelet mean volume (Bld) [Entitic vol] 9.8 fL Normal 6.3-10.2 [facility] Comment on above: Performed By: #### 1 [id number], 29508225, 2489249 #### [facility] (DEFAULT) [address] [place] [address] 05001 Platelets (Bld) [#/Vol] 266 x10 Normal 138-427 [facility] Comment on above: Performed By: #### 1 [id number], 39400841, 9066773 #### [facility] (DEFAULT) [address] [place] [address] 09531 RBC (Bld) [#/Vol] 3.89 x10 Normal 3.70-5.30 [facility] Comment on above: Performed By: #### 1 [id number], 65296760, 9923775 #### [facility] (DEFAULT) [address] [place] [address] WBC (Bld) [#/Vol] 13.4 x10 [facility] Comment on above: Result Comment: Slid e Reviewed Performed By: #### 1 [id number], 88862010, 6292745 #### [facility] (DEFAULT) [address] [place] [address] Coding Summaryon 09-27-2019 Coding Summary CODING DATE: 020 FINAL [facility] STATUS: Home PAYOR: Medicare ADMIT DX: REASON [...] Marisela Lawrence Date Saved: 09/27/2019 11:11 am [facility] Extra Greenon 09-27-2019 Tube Collected Yes [facility] Comment on above: Performed By: #### 1 [id number], 20541747, 3001225 #### [facility] (DEFAULT) [address] [place] [address] 32765 Nutrition Noteon 09-27-2019 Nutrition Note Pt eating poorly, av g less than 30% of meals per intake records. Supplements also taken sporadically. Suspect pain and constipation may be playing a role. No new wts. Last BM 09/23. Possible discharge later today. Will continue to follow and monitor need to adjust supplements ie. offer to make into a milkshake, [facility] Pharmacy Noteon 09-27-2019 Pharmacy Note I [...] [Verified on: 09/27/2019 14:01 EDT] Virgie Santos [facility] Progress Note - Nurseon 08- Progress Note - Nurse 1800 one dulcolax suppository administered, will continue to monitor. [Electronically Signed on: 09/27/2019 18:03 EDT] Luli Mclain RN [Verified on: 09/27/2019 18:03 EDT] Luli Mclain RN [facility] Progress Note - Nurse 1710 tramadol 50mg po administered for #10 left upper thigh pain , will continue to monitor. [Electronically Signed on: 09/27/2019 17:09 EDT] Luli Mclain RN [Verified on: 09/27/2019 17:09 EDT] Luli Mclain RN [facility] Progress Note-Physicianon Progress Note-Physician DATE OF [...] PROGNOSIS: Good. Devorah Redd DO JOB #: [id number] bk [Electronically Signed on: 2019 10:28 EDT] DEVORAH REDD DO [Verified on: 2019 10:28 EDT] DEVORAH REDD DO [Transcribed on: 09/27/2019 13:52 EDT] [facility] .Auto Diff 09-26-2019 Auto Garrard % 9 % Normal 1-12 [facility] Comment on above: Performed By: #### 1 [id number], 12746989, 8717209 #### [facility] (DEFAULT) [address] [place] [address] Baso Abs# 0.0 x10 Normal 0.0-0.2 [facility] Comment on above: Performed By: #### 1 [id number], 97318357, 9490200 #### [facility] (DEFAULT) [address] [place] [address] Basophils/100 WBC (Bld) 0.1 % Low 0.2-2.0 [facility] Comment on above: Performed By: #### 1 [id number], 65673408, 9110929 #### [facility] (DEFAULT) [address] [place] [address] Eos Abs# 0.2 x10 Normal 0.0-0.4 [facility] Comment on above: Performed By: #### 1 [id number], 46359942, 9825871 #### [facility] (DEFAULT) [address] [place] [address] 23039 Eosinophils/100 WBC (Bld) 2.0 % Normal 0.9-4.0 [facility] Comment on above: Performed By: #### 1 [id number], 36401502, 2143359 #### [facility] (DEFAULT) [address] [place] [address] 83505 Lymphocytes (Bld) [#/Vol] 0.6 x10 Low 1.3-2.9 [facility] Comment on above: Performed By: #### 1 [id number], 06958114, 8116930 #### [facility] (DEFAULT) [address] [place] [address] 98710 Lymphocytes/100 WBC (Bld) 6 % Low 14-48 [facility] Comment on above: Performed By: #### 1 [id number], 45192878, 5723746 #### [facility] (DEFAULT) [address] [place] [address] Garrard Abs# 0.9 x10 High 0.0-0.8 [facility] Comment on above: Performed By: #### 1 [id number], 59591480, 1509850 #### [facility] (DEFAULT) [address] [place] [address] Neut Abs# 8.3 x10 Normal 1.5-9.2 [facility] Comment on above: Performed By: #### 1 [id number], 83815094, 9534871 #### [facility] (DEFAULT) [address] [place] [address] Neutrophils/100 WBC (Bld) 83 % Normal 44-88 [facility] Comment on above: Performed By: #### 1 [id number], 48028950, 0333659 #### [facility] (DEFAULT) [address] [place] [address] Standardon 09-26-2019 eGFR Non AA 48 mL/min/1.73m2 [facility] Comment on above: Performed By: #### 1 [id number], 02037325, 7179582 #### [facility] (DEFAULT) [address] [place] [address] eGFR AA 58 mL/min/1.73m2 [facility] Comment on above: Result Comment: Sales Associate Key Holder kody Kidney disease could be indicated at eGFRs of less than 60 ml/min/1.73m2. Kidney Failure is indicated at less than 15 ml/min/1.73m2 Performed By: #### 1 [id number], 40496875, 2097316 #### [facility] (DEFAULT) [address] [place] [address] 11992 Anion gap [Moles/Vol] 10.0 mmol/L Normal 5.0-19.0 [facility] Comment on above: Performed By: #### 1 [id number], 99722894, 9120163 #### [facility] (DEFAULT) [address] [place] [address] 86811 Calcium [Mass/Vol] 8.8 mg/dL Low 8.9-10.3 [facility] Comment on above: Performed By: #### 1 [id number], 66081803, 3221142 #### [facility] (DEFAULT) [address] [place] [address] 88766 Chloride [Moles/Vol] 103 mmol/L Normal 101-111 [facility] Comment on above: Performed By: #### 1 [id number], 18533385, 8654954 #### [facility] (DEFAULT) [address] [place] [address] 13200 CO2 [Moles/Vol] 28 mmol/L Normal 21-32 [facility] Comment on above: Performed By: #### 1 [id number], 23095454, 3686610 #### [facility] (DEFAULT) [address] [place] [address] 28330 Creatinine [Mass/Vol] 1.09 mg/dL Normal 0.60-1.30 [facility] Comment on above: Performed By: #### 1 [id number], 12447544, 9956246 #### [facility] (DEFAULT) [address] [place] [address] 68737 Glucose [Mass/Vol] 94.0 mg/dL Normal 74.0-118.0 [facility] Comment on above: Performed By: #### 1 [id number], 46117030, 6355064 #### [facility] (DEFAULT) [address] [place] [address] 07240 Osmolality [Osmolality] 276 mOsm/L [facility] Comment on above: Performed By: #### 1 [id number], 96050546, 2788797 #### [facility] (DEFAULT) [address] [place] [address] 90421 Potassium [Moles/Vol] 4.4 mmol/L Normal 3.6-5.1 [facility] Comment on above: Performed By: #### 1 [id number], 08882315, 7342484 #### [facility] (DEFAULT) [address] [place] [address] 94062 Sodium [Moles/Vol] 137.0 mmol/L Normal 136.0-144 . 0 [facility] Comment on above: Performed By: #### 1 [id number], 45102940, 5105551 #### [facility] (DEFAULT) [address] [place] [address] 26159 Urea nitrogen [Mass/Vol] 19 mg/dL Normal 8-26 [facility] Comment on above: Performed By: #### 1 [id number], 35952911, 2370781 #### [facility] (DEFAULT) [address] [place] [address] 83697 Urea nitrogen/Creatinine [Mass ratio] 17.0 mg/mg High 4.6-16.2 [facility] Comment on above: Performed By: #### 1 [id number], 01304857, 7429532 #### [facility] (DEFAULT) [address] [place] [address] 26459 CBC w/ Auto Diffon 0 Erythrocyte distribution width (RBC) [Ratio] 14.4 % Normal 11.5-15.0 [facility] Comment on above: Performed By: #### 1 [id number], 99163409, 2885505 #### [facility] (DEFAULT) [address] [place] [address] Hematocrit (Bld) [Volume fraction] 35.5 % Normal 33.7-40.4 [facility] Comment on above: Performed By: #### 1 [id number], 51855649, 9104812 #### [facility] (DEFAULT) [address] [place] [address] 92383 Hemoglobin (Bld) [Mass/Vol] 11.6 g/dL Normal 11.3-15.9 [facility] Comment on above: Performed By: #### 1 [id number], 63102320, 1682059 #### [facility] (DEFAULT) [address] [place] [address] 67969 Man Diff? Auto Normal [facility] Comment on above: Performed By: #### 1 [id number], 27245089, 3563401 #### [facility] (DEFAULT) [address] [place] [address] 87928 MCH (RBC) [Entitic mass] 33 pg Normal 24-34 [facility] Comment on above: Performed By: #### 1 [id number], 52436810, 8363543 #### [facility] (DEFAULT) [address] [place] [address] 62740 MCHC (RBC) [Mass/Vol] 33 g/dL Normal 26-37 [facility] Comment on above: Performed By: #### 1 [id number], 99011038, 9920436 #### [facility] (DEFAULT) [address] [place] [address] MCV (RBC) [Entitic vol] 102 fL High 81-100 [facility] Comment on above: Performed By: #### 1 [id number], 31153438, 2877595 #### [facility] (DEFAULT) [address] [place] [address] Platelet mean volume (Bld) [Entitic vol] 9.8 fL Normal 6.3-10.2 [facility] Comment on above: Performed By: #### 1 [id number], 33274154, 8743055 #### [facility] (DEFAULT) [address] [place] [address] Platelets (Bld) [#/Vol] 236 x10 Normal 138-427 [facility] Comment on above: Performed By: #### 1 [id number], 06654688, 9952415 #### [facility] (DEFAULT) [address] [place] [address] 08036 RBC (Bld) [#/Vol] 3.49 x10 Low 3.70-5.30 [facility] Comment on above: Performed By: #### 1 [id number], 14333498, 4732663 #### [facility] (DEFAULT) [address] [place] [address] 37036 WBC (Bld) [#/Vol] 10.0 x10 [facility] Comment on above: Performed By: #### 1 [id number], 74070656, 3681695 #### [facility] (DEFAULT) [address] [place] [address] Consent Formson 09-26-2019 Consent Forms [id number] FF [facility] Consultation/Specialist Note on 09-26-2019 Consultation/Specialis t [...] [Verified on: 09/26/2019 07:35 EDT] RIDDHISUDHEER HOLLOWAY [facility] Progress Note - Nurseon 09-08 Progress [...] met. [Electronically Signed on: 09/26/2019 07:45 EDT] wTila Cruz RN [facility] .Auto Diff 1on 09-25-2019 Auto Garrard % 8 % Normal -12 [facility] Comment on above: Performed By: #### 1 [id number], 50347825, 4774536 #### [facility] (DEFAULT) [address] [place] [address] 70836 Baso Abs# 0.0 x10 Normal 0.0-0.2 [facility] Comment on above: Performed By: #### 1 [id number], 20481642, 2877665 #### [facility] (DEFAULT) [address] [place] [address] 63126 Basophils/100 WBC (Bld) 0.2 % Normal 0.2-2.0 [facility] Comment on above: Performed By: #### 1 [id number], 34597625, 9317124 #### [facility] (DEFAULT) [address] [place] [address] 42807 Eos Abs# 0.1 x10 Normal 0.0-0.4 [facility] Comment on above: Performed By: #### 1 [id number], 61557047, 9346294 #### [facility] (DEFAULT) [address] [place] [address] 23041 Eosinophils/100 WBC (Bld) 0.5 % Low 0.9-4.0 [facility] Comment on above: Performed By: #### 1 [id number], 70859913, 0294363 #### [facility] (DEFAULT) [address] [place] [address] 28399 Lymphocytes (Bld) [#/Vol] 1.1 x10 Low 1.3-2.9 [facility] Comment on above: Performed By: #### 1 [id number], 86062632, 4916217 #### [facility] (DEFAULT) [address] [place] [address] 24614 Lymphocytes/100 WBC (Bld) 9 % Low 14-48 [facility] Comment on above: Performed By: #### 1 [id number], [id number], [id number] #### [facility] (DEFAULT) [address] [place] [address] 30633 G[place]ard Abs# 1.0 x10 High 0.0-0.8 [facility] Comment on above: Performed By: #### 1 [id number], [id number], [id number] #### [facility] (DEFAULT) [address] [place] [address] 31012 Neut Abs# 9.6 x10 High 1.5-9.2 [facility] Comment on above: Performed By: #### 1 [id number], [id number], [id number] #### [facility] (DEFAULT) [address] [place] [address] [id number] Neutrophils/100 WBC (Bld) 82 % Normal 44-88 [facility] Comment on above: Performed By: #### 1 [id number], [id number], [id number] #### [facility] [facility] ([facility] [address] [place] [address] 34196 ABORhon 09-25-2019 ABO and Rh group Nom (Bld) Hx Check: Not Found Anti-A: 4+ Anti-B: 0 Anti-D: 4+ DCon: NT A1: 0 B: 4+ ABORh Interp: A POS [facility] Comment on above: Performed By: #### 7 [id number], [id number], [id number] #### [facility] (DEFAULT) [address] [place] [address] 14862 ABORh Retypeon 09-25-2019 ABO and Rh group Nom (Bld) Ordered by Discern. Anti-A: 4+ Anti-B: 0 Anti-D: 4+ DCon: NT A1: 0 B: 4+ ABORh Retype: A [facility] Comment on above: Performed By: #### 7 [id number], [id number], [id number] #### [facility] (DEFAULT) [address] [place] [address] 69951 ABSC Gelon 09-25-2019 ABSC Gel Negative Normal [facility] Comment on above: Performed By: #### 7 031691, [id number], [id number] #### [facility] (DEFAULT) [address] [place] [address] 72351 Anesthesia Noteon 09-25-2019 Anesthesia Note Patient: DONTAE [...] risk of pressure sore / SNOMED CT 825266228 / Confirmed CAD (coronary artery disease) / SNOMED CT 74292286 / Confirmed Hyperlipidemia / SNOMED CT 47389861 / Confirmed Hypertension / SNOMED CT 3995145191 / Confirmed Skin cancer / SNOMED CT 0100080791 / Confirmed Osteoporosis / SNOMED CT 141967597 / Confirmed Restless leg syndrome / SNOMED CT 10276681 / Confirmed Resolved: GERD (gastroesophageal reflux disease) / SNOMED CT 886104353 Histories Family History: Cancer Sister Brother Aneurysm Mother CHF - Congestive heart failure Father MS (myocardial infarction) Sister Procedure history: Umbilical hernia (6804453164). Arthroscopy (77209211). Comments: 08/29/2019 12:57 Dionne Mccarty RN arthroscopy of knee Cholecystectomy (58521159). Hysterectomy (259206935). Cataract (036543201). Shoulder (58139387). Comments: 08/29/2019 12:58 EDT - Dionne Yun RN arthroscopy CABG (Coronary artery bypass grafting) planned (112228424). Colonoscopy (151512811). EGD - Esophagogastroduodenoscop y (4344357743). Meniscectomy (414019875). Hip arthroplasty (925362254). Social History Electronic Cigarette/Vaping Assessment Electronic Cigarette [...] axis dev, LAFB, RV conduction delay. Plan [place] [employer] Anesthesiologists#(ASA) physical status classification: Class III. Anesthetic Preoperative Plan Anesthesia: Regional Spinal. Anesthetic plan, risks, benefits, and alternatives discussed with the patient and/or family. Patient verbalized understanding. Informed consent was given. Consent was signed by the patient. [Electronically Signed on: 09/25/2019 10:10 EDT] Enrike Mora MD [Verified on: 09/25/2019 10:10 EDT] Enrike Mora MD Normal [facility] Blood Bank IDon 09-25-2019 Blood Bank ID BBID: [id number] [facility] Comment on above: Performed By: #### 7 [id number], [id number], [id number] #### [facility] (DEFAULT) [address] [place] [address] 26767 CBC w/ Auto Diffon 0 Erythrocyte distribution width (RBC) [Ratio] 14.4 % Normal 11.5-15.0 [facility] Comment on above: Performed By: #### 1 [id number], [id number], [id number] #### [facility] (DEFAULT) [address] [place] [address] 78085 Hematocrit (Bld) [Volume fraction] 39.2 % Normal 33.7-40.4 [facility] Comment on above: Performed By: #### 1 [id number], [id number], [id number] #### [facility] (DEFAULT) [address] [place] [address] 87948 Hemoglobin (Bld) [Mass/Vol] 12.8 g/dL Normal 11.3-15.9 [facility] Comment on above: Performed By: #### 1 [id number], [id number], [id number] #### [facility] (DEFAULT) [address] [place] [address] 97143 Man Diff? Auto Normal [facility] Comment on above: Performed By: #### 1 [id number], 44163045, 5151901 #### [facility] (DEFAULT) [address] [place] [address] 20421 MCH (RBC) [Entitic mass] 33 pg Normal 24-34 [facility] Comment on above: Performed By: #### 1 [id number], 47516781, 2945036 #### [facility] (DEFAULT) [address] [place] [address] 73108 MCHC (RBC) [Mass/Vol] 33 g/dL Normal 26-37 [facility] Comment on above: Performed By: #### 1 [id number], 45605086, [id number] #### [facility] (DEFAULT) [address] [place] [address] 56267 MCV (RBC) [Entitic vol] 102 fL High 81-100 [facility] Comment on above: Performed By: #### 1 [id number], 40406810, 4819663 #### [facility] (DEFAULT) [address] [place] [address] 98848 Platelet mean volume (Bld) [Entitic vol] 9.4 fL Normal 6.3-10.2 [facility] Comment on above: Performed By: #### 1 [id number], 33106356, [id number] #### [facility] (DEFAULT) [address] [place] [address] 88389 Platelets (Bld) [#/Vol] 272 x10 Normal 138-427 [facility] Comment on above: Performed By: #### 1 [id number], 67702469, [id number] #### [facility] (DEFAULT) [address] [place] [address] 43362 RBC (Bld) [#/Vol] 3.85 x10 Normal 3.70-5.30 [facility] Comment on above: Performed By: #### 1 [id number], 24453644, 4340430 #### [facility] (DEFAULT) [address] [place] [address] 52476 WBC (Bld) [#/Vol] 11.7 x10 High 3.5-10.5 [facility] Comment on above: Performed By: #### 1 [id number], [id number], [id number] #### [facility] (DEFAULT) [address] [place] [address] 81550 Extra [place] 09-25-2019 Tube Collected Yes [facility] Comment on above: Performed By: #### 7 921506, 48665931, [id number] #### [facility] (DEFAULT) [address] [place] [address] 22388 H&Hon 09-25-2019 Hematocrit (Bld) [Volume fraction] 39.9 % Normal 33.7-40.4 [facility] Comment on above: Performed By: #### 7 794367, 66577548, [id number] #### [facility] (DEFAULT) [address] [place] [address] 01493 Hemoglobin (Bld) [Mass/Vol] 12.7 g/dL Normal 11.3-15.9 [facility] Comment on above: Performed By: #### 7 513414, 59064317, [id number] #### [facility] (DEFAULT) [address] [place] [address] History and Physicalon 09-24 History and Physical [id number] FF Normal [facility] MAGR Intraoperative Recordon 09-25-2019 MAGR Intraoperative Record MAGR Intra-Op Record Summary Primary Physician: Mi Licea DO Finalized Date/Time: 09/25/19 15:04:11 Pt. Name: VINCENT HSU Jean Carlos Cha/Sex: 1935 FEMALE Med Rec #: [id number] Physician: Mi Licea DO Financial #: [id number] Pt. Type: I Room/Bed: [facility] Admit/Disch: 09/25/19 06:52:00 - Institution: Case [...] Role Performed Surgeon - Primary Anesthesiologist of Belt Sander Stone Record Time In 09/25/19 09:37:00 09/25/19 09:37:00 09/25/19 09:37:00 Time Out 09/25/19 11:50:00 09/25/19 11:50:00 09/25/19 11:50:00 Procedure Arthroplasty Total Arthroplasty Total Arthroplasty Total Hip(Left) Hip(Left) Hip(Left) Last Modified By: Marj Sullivan RN, Stephanie RN Sauer, Stephanie RN 09/25/19 12:54:58 09/25/19 12:54:58 09/25/19 12:54:58 Entry 4 Entry 5 Entry 6 Case Attendee Montrell MCKEON, Shantal Moreira Leigh-Ann CST Role Performed Scrub Personnel Manager Bench Manager Bench Time In 09/25/19 09:37:00 09/25/19 09:37:00 09/25/19 [...] 50MM 6.5 X 30MM 6.5 X 15MM Procedure Tech DEPUY DEPUY DEPUY Catalog # Lot Number [id number] Expiration Date 05/08/24 03/10/29 01/07/29 Serial Number 1221-32-050 REF 1217-30-500 REF 1217-15-500 Device Identifier Human Readable EDDA Machine Readable EDDA MR Class Implant Usage Data Site Hip L Hip L Hip L Quantity 1 1 1 Reason for Explant Reason Not Retained 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 Sterility External Indicator Result Internal Indicator Results [...] BOYD Size 6.5 X 15MM 50MM PS Procedure Tech DEPUY DEPUY DEPUY Catalog # Lot Number [id number] Expiration Date 11/07/28 04/07/29 04/07/29 Serial Number REF 1217-15-500 REF [id number] REF 1246-03-000 Device Identifier Human Readable EDDA Machine Readable EDDA MR Class Implant Usage Data Site Hip L Hip L Hip L Quantity 1 1 1 Reason for Explant Reason Not Retained 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 Sterility External Indicator Result Internal Indicator Results [...] 10:50:00 Date/Time Implanted/Explanted Mi Licea James By: Eduadro BOYD Eduardo DO Size 135 SHORT NECK COLLAR 01/21 TAPER SIZE 11 Procedure Tech DEPUY DEPUY Catalog # Lot Number [id number] Expiration Date 02/08/24 02/08/24 Serial Number REF [id number] REF 1365-22-000 Device Identifier Human Readable EDDA Machine Readable EDDA MR Class Implant Usage Data Site Hip L Hip L Quantity 1 1 Reason for Explant Reason Not Retained Explant 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 Name: VINCENT HSU/Sex: 1935 FEMALE Med Rec #: [id number] Physician: Mi Licea DO Financial #: [id number] Pt. Type: I Room/Bed: [facility] Admit/Disch: 09/25/19 06:52:00 - Institution: PACU Case Times MAGR Entry 1 In PACU I 09/25/19 11:50:00 Discharge from PACU 09/25/19 12:40:00 I Last Modified By: Dionne Yun RN 09/25/19 12:53:35 Finalized By: Dionne Yun RN Document Signatures Signed By: Dionne Yun RN 09/25/19 12:53 [facility] MAGR Preoperative Recordon 0 09-25-2019 MAGR Preoperative Record MAGR Pre-Op Record Summary Primary Physician: Mi Licea DO Finalized Date/Time: 09/25/19 11:58:52 Pt. Name: VINCENT HSU/Sex: 1935 FEMALE Med Rec #: [id number] Physician: Mi Licea DO Financial #: [id number] Pt. Type: I Room/Bed: 221/1 Admit/Disch: 09/25/19 [...] Signed By: Dionne Yun RN 09/25/19 11:58 [facility] Nutrition Noteon 09-25-2019 Nutrition Note Pt admitted for sche duled Lt total hip sx; placed on a Regular diet as tolerated w/ post op supplements BID along w/ usual vitamin/mineral supplementation. Nutritional supplements adjusted to what's available in house. Per portable grinding machine operator assessment, Pt reports wt loss of 2-13lb, [...] associates to offer prunes/prune alfred q am. 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 Performed By: #### 7 528901, [id number], [id number] #### [facility] (DEFAULT) [address] [place] [address] UA Bacteria 4+ [facility] Comment on above: Order Comment: Urina lysis Microscopic order added on by Hydrelis Expert Rules system. Performed By: #### 7 073330, [id number], [id number] #### [facility] (DEFAULT) [address] [place] [address] 85534 UA Squam Epi Rare [facility] Comment on above: Order Comment: Urina lysis Microscopic order added on by Hydrelis Expert Rules system. Performed By: #### 7 830616, 41402877, [id number] #### [facility] (DEFAULT) [address] [place] [address] UA WBC 0-2 [facility] Comment on above: Order Comment: Urina lysis Microscopic order added on by Hydrelis Expert Rules system. Performed By: #### 7 840648, 32351497, [id number] #### [facility] (DEFAULT) [address] [place] [address] 28772 UA w Culture if Ind Standard on 09-25-2019 Breakpoint UA [facility] Comment on above: Order Comment: sim insert Performed By: #### 7 252367, 13250360, [id number] #### [facility] (DEFAULT) [address] [place] [address] 88910 Color (U) Yellow [facility] Comment on above: Order Comment: sim insert Performed By: #### 7 114521, 58737575, [id number] #### [facility] (DEFAULT) [address] [place] [address] 16817 Culture? Indicated [facility] Comment on above: Order Comment: sim insert Performed By: #### 7 812847, 29399537, [id number] #### [facility] (DEFAULT) [address] [place] [address] 92290 Glucose (U) [Mass/Vol] Negative [facility] Comment on above: Order Comment: sim insert Performed By: #### 7 391769, 95086380, [id number] #### [facility] (DEFAULT) [address] [place] [address] Ketones Ql (U) Negative [facility] Comment on above: Order Comment: sim insert Performed By: #### 7 143133, 92128200, [id number] #### [facility] (DEFAULT) [address] [place] [address] 69965 Micro? Indicated [facility] Comment on above: Order Comment: sim insert Performed By: #### 7 142841, 25322148, [id number] #### [facility] (DEFAULT) [address] [place] [address] UA Bilirubin Negative [facility] Comment on above: Order Comment: sim insert Performed By: #### 7 303103, 74040622, [id number] #### [facility] (DEFAULT) [address] [place] [address] 00657 UA Blood Negative Normal NEGATIVE [facility] Comment on above: Order Comment: sim insert Performed By: #### 7 429081, 86418485, [id number] #### [facility] (DEFAULT) [address] [place] [address] 58408 UA Clarity CLEAR Normal CLEAR [facility] Comment on above: Order Comment: sim insert Performed By: #### 7 185081, 89386354, [id number] #### [facility] (DEFAULT) [address] [place] [address] 28493 UA Leuk Est SMALL Abnormal NEGATIVE [facility] Comment on above: Order Comment: sim insert Performed By: #### 7 073232, 40004335, [id number] #### [facility] (DEFAULT) [address] [place] [address] 33607 UA Nitrite Positive Abnormal NEGATIVE [facility] Comment on above: Order Comment: sim insert Performed By: #### 7 211702, 58633348, [id number] #### [facility] (DEFAULT) [address] [place] [address] 60429 UA pH 7.0 Normal 5-8 [facility] Comment on above: Order Comment: sim insert Performed By: #### 7 894269, 41819973, [id number] #### [facility] (DEFAULT) [address] [place] [address] 48939 UA Protein Negative Normal NEGATIVE [facility] Comment on above: Order Comment: sim insert Performed By: #### 7 279284, 81921352, [id number] #### [facility] (DEFAULT) [address] [place] [address] 19714 UA Spec Grav 1.020 Normal 1.001-1.[address] [place] [address] Comment on above: Order Comment: sim insert Performed By: #### 7 319183, 45163379, [id number] #### [facility] (DEFAULT) [address] [place] [address] 07299 UA Urobilinogen 0.2 mg/dL Normal 0.2-1.0 [facility] Comment on above: Order Comment: sim insert Performed By: #### 7 567984, 67742293, [id number] #### [facility] (DEFAULT) [address] [place] [address] Urine Source Clean Catch [facility] Comment on above: Order Comment: sim insert Performed By: #### 7 868648, 66288005, [id number] #### [facility] (DEFAULT) [address] [place] [address] XR Hip Complete Lefton 09-24 XR Hip [...] MD 09/25/19 3:55 pm Technologist: OCHOA NAZARIO [facility] Patient Handouton 09-24-2019 Patient Handout [facility] Progress Note - Nurseon 09-08 Progress Note - Nurse Spoke with pt reggonzález rding arrival time of 0700 and NPO status. Verbalized understanding. [Electronically Signed on: 09/22/2019 09:47 EDT] Kimberley Holden RN [Verified on: 09/22/2019 09:47 EDT] Kimberley Holden RN [facility] SARS-CoV-2 (COVID-19) PCRon 09-22-2019 COVID-19 PCR Not Detected Normal Not Detected [facility] Comment on above: Performed By: #### 7 160568, 54496915, [id number] #### [facility] (DEFAULT) [address] [place] [address] 23152 Employed in healthcare? Unknown [facility] Comment on above: Performed By: #### 7 137870, 78470587, [id number] #### [facility] (DEFAULT) [address] [place] [address] 31637 Group care resident? Unknown [facility] Comment on above: Performed By: #### 7 906525, 67070515, [id number] #### [facility] (DEFAULT) [address] [place] [address] Hospitalized due to COVID-19? Unknown [facility] Comment on above: Performed By: #### 7 082031, 98653593, [id number] #### [facility] (DEFAULT) [address] [place] [address] 21797 In ICU? Unknown [facility] Comment on above: Performed By: #### 7 038899, 29911411, [id number] #### [facility] (DEFAULT) [address] [place] [address] 36999 status? Unknown [facility] Comment on above: Performed By: #### 7 860749, 06219160, [id number] #### [facility] (DEFAULT) [address] [place] [address] 80124 Symptomatic as defined by CDC? Unknown [facility] Comment on above: Performed By: #### 7 460110, 64080204, [id number] #### [facility] (DEFAULT) [address] [place] [address] 26692 Coding Summaryon 09-13-2019 Coding Summary CODING DATE: 020 FINAL [facility] STATUS: Home PAYOR: Medicare APC DESCRIPTION 5733 Level 3 Minor Procedures ADMIT DX: REASON FOR VISIT DX: Z01.818 Encounter for other preprocedural examination I10 Essential (primary) hypertension I25.10 Atherosclerotic heart disease of [place] coronary artery without angina pectoris FINAL DX: PRINCIPAL: Z01.818 Encounter for other preprocedural examination SECONDARY: I10 Essential (primary) hypertension I25.10 Atherosclerotic heart disease of [place] coronary artery without angina pectoris K21.9 Gastro-esophageal [...] Marisela Lawrence Date Saved: 09/13/2019 09:18 am [facility] Coding Summaryon 09-06-2019 Coding Summary CODING DATE: 020 [facility] STATUS: Home PAYOR: Medicare APC DESCRIPTION 5733 Level 3 Minor Procedures ADMIT DX: REASON FOR VISIT DX: Z01.818 Encounter for other preprocedural examination I10 Essential (primary) hypertension I25.10 Atherosclerotic heart disease of [place] coronary artery without angina pectoris FINAL DX: PRINCIPAL: Z01.818 Encounter for other preprocedural examination SECONDARY: I10 Essential (primary) hypertension I25.10 Atherosclerotic heart disease of [place] coronary artery without angina pectoris K21.9 Gastro-esophageal reflux disease without esophagitis PYMT PROC APC STAT DESCRIPTION DOCTOR NAME DATE NOTE: The code number assigned matches the documented diagnosis and / or procedure in the patient's chart. However, the narrative phrase printed from the coding software may appear abbreviated, or result in slightly different terminology. Coded By: Marisela Lawrence Date Saved: 09/06/2019 09:20 am [facility] Progress Note - Nurseon 08-09 Progress Note - Nurse chart reviewed per Dr Akbar anesthesiologist, and cleared for surgery on 09/25/2019 [Electronically Signed on: 09/04/2019 14:30 EDT] Nimco Albarado RN [Verified on: 09/04/2019 14:30 EDT] Nimco Albarado RN [facility] Progress Note - Nurse Xin at Dr Aydin rosario notified that pt has positive urine culture. [Electronically Signed on: 09/04/2019 13:37 EDT] Dionne Yun RN [Verified on: 09/04/2019 13:37 EDT] Dionne Yun RN [facility] Provider Orderson 09-04-2019 Provider Orders [id number] FF [facility] C Urineon 09-03-2019 C Urine Urine [...] S <=4 Verified Tri/Sulf S <=2/38 Verified [facility] Comment on above: Performed By: #### 1 [id number], [id number], [id number] #### [facility] (DEFAULT) [address] [place] [address] 49538 C MRSA Screenon 09-02-2019 C MRSA Screen Negative Normal [facility] Comment on above: Performed By: #### 1 [id number] #### [facility] (DEFAULT) [address] [place] [address] 76437 .Auto Diff 1on 09-01-2019 Auto [place] % 10 % Normal 1-12 [facility] Comment on above: Performed By: #### 7 541584, 02624902, [id number] #### [facility] (DEFAULT) [address] [place] [address] 22670 Baso Abs# 0.0 x10 Normal 0.0-0.2 [facility] Comment on above: Performed By: #### 7 340584, 09373758, [id number] #### [facility] (DEFAULT) [address] [place] [address] 04460 Basophils/100 WBC (Bld) 0.3 % Normal 0.2-2.0 [facility] Comment on above: Performed By: #### 7 084748, [id number], [id number] #### [facility] (DEFAULT) [address] [place] [address] Eos Abs# 0.1 x10 Normal 0.0-0.4 [facility] Comment on above: Performed By: #### 7 008798, 50000613, [id number] #### [facility] (DEFAULT) [address] [place] [address] 19912 Eosinophils/100 WBC (Bld) 0.9 % Normal 0.9-4.0 [facility] Comment on above: Performed By: #### 7 172819, 97379898, [id number] #### [facility] (DEFAULT) [address] [place] [address] 30551 Lymphocytes (Bld) [#/Vol] 1.0 x10 Low 1.3-2.9 [facility] Comment on above: Performed By: #### 7 867930, 29644820, [id number] #### [facility] (DEFAULT) [address] [place] [address] 33274 Lymphocytes/100 WBC (Bld) 10 % Low 14-48 [facility] Comment on above: Performed By: #### 7 094373, 84315760, [id number] #### [facility] (DEFAULT) [address] [place] [address] [place]ard Abs# 1.0 x10 High 0.0-0.8 [facility] Comment on above: Performed By: #### 7 932419, 41153303, [id number] #### [facility] (DEFAULT) [address] [place] [address] Neut Abs# 8.0 x10 Normal 1.5-9.2 [facility] Comment on above: Performed By: #### 7 343969, 12309569, [id number] #### [facility] (DEFAULT) [address] [place] [address] Neutrophils/100 WBC (Bld) 79 % Normal 44-88 [facility] Comment on above: Performed By: #### 7 173565, 63045527, [id number] #### [facility] (DEFAULT) [address] [place] [address] Standardon 09-01-2019 eGFR Non AA 44 mL/min/1.73m2 [facility] Comment on above: Performed By: #### 7 264878, 25510379, [id number] #### [facility] (DEFAULT) [address] [place] [address] eGFR AA 54 mL/min/1.73m2 [facility] Comment on above: Result Comment: Sales Associate Key Holder okdy Kidney disease could be indicated at eGFRs of less than 60 ml/min/1.73m2. Kidney Failure is indicated at less than 15 ml/min/1.73m2 Performed By: #### 7 897717, 08126545, [id number] #### [facility] (DEFAULT) [address] [place] [address] Anion gap [Moles/Vol] 15.0 mmol/L Normal 5.0-19.0 [facility] Comment on above: Performed By: #### 7 094312, 18101317, [id number] #### [facility] (DEFAULT) [address] [place] [address] 87535 Calcium [Mass/Vol] 9.2 mg/dL Normal 8.9-10.3 [facility] Comment on above: Performed By: #### 7 849167, 88675660, [id number] #### [facility] (DEFAULT) [address] [place] [address] 10483 Chloride [Moles/Vol] 101 mmol/L Normal 101-111 [facility] Comment on above: Performed By: #### 7 919326, 87196002, [id number] #### [facility] (DEFAULT) [address] [place] [address] 25649 CO2 [Moles/Vol] 25 mmol/L Normal 21-32 [facility] Comment on above: Performed By: #### 7 197085, 87334047, [id number] #### [facility] (DEFAULT) [address] [place] [address] 77939 Creatinine [Mass/Vol] 1.17 mg/dL Normal 0.60-1.30 [facility] Comment on above: Performed By: #### 7 737890, 14190213, [id number] #### [facility] (DEFAULT) [address] [place] [address] 08100 Glucose [Mass/Vol] 94.0 mg/dL Normal 74.0-118.0 [facility] Comment on above: Performed By: #### 7 420364, 68160916, [id number] #### [facility] (DEFAULT) [address] [place] [address] 62934 Osmolality [Osmolality] 276 mOsm/L [facility] Comment on above: Performed By: #### 7 917774, 55556202, [id number] #### [facility] (DEFAULT) [address] [place] [address]90[address] Potassium [Moles/Vol] 4.0 mmol/L Normal 3.6-5.1 [facility] Comment on above: Performed By: #### 7 [id number], [id number], [id number] #### [facility] (DEFAULT) [address] [place] [address] Sodium [Moles/Vol] 137.0 mmol/L Normal 136.0-144 . 0 [facility] Comment on above: Performed By: #### 7 [id number], [id number], [id number] #### [facility] (DEFAULT) [address] [place] [address] Urea nitrogen [Mass/Vol] 20 mg/dL Normal 8-26 [facility] Comment on above: Performed By: #### 7 [id number], [id number], [id number] #### [facility] (DEFAULT) [address] [place] [address] Urea nitrogen/Creatinine [Mass ratio] 17.0 mg/mg High 4.6-16.2 [facility] Comment on above: Performed By: #### 7 [id number], [id number], [id number] #### [facility] (DEFAULT) [address] [place] [address] CBC w/ Auto Diffon 0 Erythrocyte distribution width (RBC) [Ratio] 13.9 % Normal 11.5-15.0 [facility] Comment on above: Performed By: #### 7 [id number], [id number], [id number] #### [facility] (DEFAULT) [address] [place] [address] Hematocrit (Bld) [Volume fraction] 38.5 % Normal 33.7-40.4 [facility] Comment on above: Performed By: #### 7 [id number], [id number], [id number] #### [facility] (DEFAULT) [address] [place] [address] Hemoglobin (Bld) [Mass/Vol] 12.6 g/dL Normal 11.3-15.9 [facility] Comment on above: Performed By: #### 7 [id number], [id number], [id number] #### [facility] (DEFAULT) [address] [place] [address] Man Diff? Auto Normal [facility] Comment on above: Performed By: #### 7 [id number], [id number], [id number] #### [facility] (DEFAULT) [address] [place] [address] 10797 MCH (RBC) [Entitic mass] 33 pg Normal 24-34 [facility] Comment on above: Performed By: #### 7 [id number], [id number], [id number] #### [facility] (DEFAULT) [address] [place] [address] 95552 MCHC (RBC) [Mass/Vol] 33 g/dL Normal 26-37 [facility] Comment on above: Performed By: #### 7 [id number], [id number], [id number] #### [facility] (DEFAULT) [address] [place] [address] 06907 MCV (RBC) [Entitic vol] 101 fL High 81-100 [facility] Comment on above: Performed By: #### 7 [id number], [id number], [id number] #### [facility] (DEFAULT) [address] [place] [address] 42071 Platelet mean volume (Bld) [Entitic vol] 9.5 fL Normal 6.3-10.2 [facility] Comment on above: Performed By: #### 7 [id number], [id number], [id number] #### [facility] (DEFAULT) [address] [place] [address] 93728 Platelets (Bld) [#/Vol] 292 x10 Normal 138-427 [facility] Comment on above: Performed By: #### 7 [id number], [id number], [id number] #### [facility] (DEFAULT) [address] [place] [address] 65789 RBC (Bld) [#/Vol] 3.82 x10 Normal 3.70-5.30 [facility] Comment on above: Performed By: #### 7 [id number], [id number], [id number] #### [facility] (DEFAULT) [address] [place] [address] 63692 WBC (Bld) [#/Vol] 10.1 x10 Normal 3.5-10.5 [facility] Comment on above: Performed By: #### 7 [id number], [id number], [id number] #### [facility] (DEFAULT) [address] [place] [address] UA [id number] 09-01-2019 RBC (U) [#/Vol] None Seen [facility] Comment on above: Order Comment: Urina lysis Microscopic order added on by Dis[employer] Expert Rules system. Performed By: #### 1 [id number], [id number], [id number] #### [facility] (DEFAULT) [address] [place] [address] UA Amorph. 1+ [facility] Comment on above: Order Comment: Urina lysis Microscopic order added on by [employer] Rules system. Performed By: #### 1 [id number], [id number], [id number] #### [facility] (DEFAULT) [address] [place] [address] UA Bacteria 4+ [facility] Comment on above: Order Comment: Urina lysis Microscopic order added on by [employer] system. Performed By: #### 1 [id number], [id number], [id number] #### [facility] (DEFAULT) [address] [place] [address] UA Squam Epi Moderate [facility] Comment on above: Order Comment: Urina lysis Microscopic order added on by Hydrelis [employer] Rules system. Performed By: #### 1 [id number], [id number], [id number] #### [facility] (DEFAULT) [address] [place] [address] UA WBC 15-20 [facility] Comment on above: Order Comment: Urina lysis Microscopic order added on by Hy[employer] Rules system. Performed By: #### 1 [id number], [id number], [id number] #### [facility] (DEFAULT) [address] [place] [address] UA w Culture if Ind Standard on 09-01-2019 Breakpoint UA [facility] Comment on above: Performed By: #### 1 [id number], [id number], [id number] #### [facility] (DEFAULT) [address] [place] [address] Color (U) Yellow [facility] Comment on above: Performed By: #### 1 [id number], [id number], [id number] #### [facility] (DEFAULT) [address] [place] [address] 99459 Culture? Yes Normal [facility] Comment on above: Performed By: #### 1 [id number], [id number], [id number] #### [facility] (DEFAULT) [address] [place] [address] 84067 Glucose (U) [Mass/Vol] Negative Normal [facility] Comment on above: Performed By: #### 1 [id number], [id number], [id number] #### [facility] (DEFAULT) [address] [place] [address] 38183 Ketones Ql (U) Negative Normal [facility] Comment on above: Performed By: #### 1 [id number], [id number], [id number] #### [facility] (DEFAULT) [address] [place] [address] 43257 Micro? Indicated [facility] Comment on above: Performed By: #### 1 [id number], [id number], [id number] #### [facility] (DEFAULT) [address] [place] [address] 03378 UA Bilirubin Negative Normal [facility] Comment on above: Performed By: #### 1 [id number], [id number], [id number] #### [facility] (DEFAULT) [address] [place] [address] 63535 UA Blood TRACE Abnormal NEGATIVE [facility] Comment on above: Performed By: #### 1 [id number], [id number], [id number] #### [facility] (DEFAULT) [address] [place] [address] 75009 UA Clarity CLEAR Normal CLEAR [facility] Comment on above: Performed By: #### 1 [id number], [id number], [id number] #### [facility] (DEFAULT) [address] [place] [address] 72236 UA Leuk Est MODERATE Abnormal NEGATIVE [facility] Comment on above: Performed By: #### 1 [id number], [id number], [id number] #### [facility] (DEFAULT) [address] [place] [address] 71388 UA Nitrite Positive Abnormal NEGATIVE [facility] Comment on above: Performed By: #### 1 [id number], [id number], [id number] #### [facility] (DEFAULT) [address] [place] [address] 74358 UA pH 5.5 Normal 5-8 [facility] Comment on above: Performed By: #### 1 [id number], [id number], [id number] #### [facility] (DEFAULT) [address] [place] [address] 69673 UA Protein Negative Normal NEGATIVE [facility] Comment on above: Performed By: #### 1 [id number], [id number], [id number] #### [facility] (DEFAULT) [address] [place] [address] 44913 UA Spec Grav 1.025 Normal 1.001-1.[address] [place] [address] Comment on above: Performed By: #### 1 [id number], [id number], [id number] #### [facility] (DEFAULT) [address] [place] [address] 82823 UA Urobilinogen 0.2 mg/dL Normal 0.2-1.0 [facility] Comment on above: Performed By: #### 1 [id number], [id number], [id number] #### [facility] (DEFAULT) [address] [place] [address] 47729 Urine Source Clean Catch Normal [facility] Comment on above: Performed By: #### 1 [id number], [id number], [id number] #### [facility] (DEFAULT) [address] [place] [address] 36923 JOINT PAIN INJECTION 09-06 JOINT PAIN INJECTION [facility] Department of Radiology [address] [place] [address] Patient Name: VINCENT HSU : 1935 Sex: F Age: Race: White Pt. Location: Patient Status: D Ordered Date: 08/08/2018 3:50:00 PM Completed Date: 09/06/2018 03:43 PM Requesting Provider: HERMELINDO HILLMAN Attending Provider: HERMELINDO HILLMAN Report Copy To: GYPSY MCMAHON Signs & Symptoms: M16.12 Unilateral primary osteoarthritis, left hip I10 History: [place] Comments: , Dr. Ochoa , Body Part: [...] guidance. Electronically signed by:Christy Ochoa. Transcribed by: [email or web address], User Resident: Electronically Signed by: CHRISTY OCHOA @ 09/09/2018 05:57 PM Normal [facility] Comment on above: Order Comment: , Dr. Ochoa , Body Part: Hip , Side: LEFT , Dr. Ochoa , Body Part: Hip , Side: LEFT , , , Ordering Provider - HERMELINDO HILLMAN MD , CT 3D LOWER EXTREMITY WO CON TRAST LEFTon 08-02-2018 CT 3D LOWER EXTREMITY WO CONTRAST LEFT [facility] Department of Radiology [address] [place] [id number] Patient Name: VINCENT HSU : 1935 Sex: F Age: Race: White Pt. 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 MEDICARE NO PC REQ [...] arthritis. Electronically signed by:Coy Jerome. Transcribed by: [email or web address], User Resident: Electronically Signed by: COY JEROME @ 08/08/2018 02:20 PM Normal [facility] Comment on above: Order Comment: , Jessie perkins left hip healing HIP LEFT 1 OR 2 VWS WITH PEL VISon 03-18-2018 HIP LEFT 1 OR 2 VWS WITH PELVIS [facility] Department of Radiology [address] [place] [address] Patient Name: VINCENT HSU : [...] study Electronically signed by:Coy Jerome. Transcribed by: [email or web address], User Resident: Electronically Signed by: COY JEROME @ 03/18/2018 02:19 PM Normal [facility] Comment on above: Order Comment: , , = ========= , Ordering Provider - MIRTHA VELÁSQUEZ PA-C , HIP LEFT 1 OR 2 VWS WITH PEL VISon 01-10-2018 HIP LEFT 1 OR 2 VWS WITH PELVIS [facility] Department of Radiology [address] [place] [id number] Patient Name: VINCENT HSU : 1935 Sex: F Age: Race: White Pt. 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 Electronically signed by:Manjit Whatley. Transcribed by: [email or web address], User Resident: Electronically Signed by: MANJIT WHATLEY @ 01/10/2018 04:38 PM Normal [facility] Comment on above: Order Comment: , Carmella ws (X-RAY, HIP): Radiologic Protocol , Views (X-RAY, HIP): Radiologic Protocol , , , Ordering Rebeka VELÁSQUEZ PA-C , HIP LEFT 1 OR 2 VWS WITH PEL VISon 11-01-2017 HIP LEFT 1 OR 2 VWS WITH PELVIS [facility] Department of Radiology [address] [place] [id number] Patient Name: VINCENT HSU : 1935 Sex: F Age: Race: White Pt. 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 Electronically signed by:Gerson Rodriguez. Transcribed by: [email or web address], User Resident: Electronically Signed by: GERSON RODRIGUEZ @ 11/01/2017 03:25 PM Normal [facility] Comment on above: Order Comment: , Elanae ws (X-RAY, HIP): Radiologic Protocol , Views (X-RAY, HIP): Radiologic Protocol , , , Ordering Provider - MIRTHA VELÁSQUEZ PA-C , HIP LEFT 1 OR 2 VWS WITH PEL VISon 09-21-2017 HIP LEFT 1 OR 2 VWS WITH PELVIS [facility] Department of Radiology [address] [place] [address] Patient Name: VINCENT HSU : [...] fracture Electronically signed by:Coy Jerome. Transcribed by: [email or web address], User Resident: Electronically Signed by: COY JEROME @ 09/21/2017 03:27 PM Normal [facility] Comment on above: Order Comment: , , = ========= , Ordering Rebeka MORENO-C , Vital Signs Date Time Vital Sign Value Performing Clinician Facility 05-24-2023 13:35-0400 Body height 177.8 cm MD Gypsy Mcmahon Work Phone: [facility] 05-24-2023 13:35-0400 Body mass index (BMI) [Ratio] 18.8 kg/m2 MD Gypsy Mcmahon Work Phone: [facility] 05-24-2023 13:35-0400 Body temperature 97.7 [degF] MD Gypsy Mcmahon Work Phone: [facility] 05-24-2023 13:35-0400 Body weight 59.42 kg MD Gypsy Mcmahon Work Phone: [facility] 05-24-2023 13:35-0400 Diastolic blood pressure 54 mm[Hg] MD Gypsy Mcmahon Work Phone: [facility] 05-24-2023 13:35-0400 Heart rate 63 /min MD Gypsy cMmahon Work Phone: [facility] 05-24-2023 13:35-0400 Systolic blood pressure 127 mm[Hg] MD Gypsy Mcmahon Work Phone: [facility] 05-21-2023 10:26-0400 Body height 177.8 cm MD Gypsy Mcmahon Work Phone: [facility] 05-21-2023 09:54-0400 Body mass index (BMI) [Ratio] 18.6 kg/m2 MD Gypsy Mcmahon Work Phone: [facility] 05-21-2023 09:54-0400 Body weight 58.96 kg MD Gypsy Mcmahon Work Phone: [facility] 05-05-2023 16:40-0400 Diastolic blood pressure 71 mm[Hg] MD Jacinto Max Work Phone: [facility] 05-05-2023 16:40-0400 Systolic blood pressure 170 mm[Hg] MD Jacinto Max Work Phone: [facility] 05-05-2023 16:36-0400 Body height 177.8 cm MD Jacinto Max Work Phone: [facility] 05-05-2023 16:36-0400 Body temperature 98.1 [degF] MD Jacinto Max Work Phone: [facility] 05-05-2023 16:36-0400 Body weight 59.87 kg MD Jacinto Max Work Phone: [facility] 05-05-2023 16:36-0400 Heart rate 71 /min MD Jacinto Max Work Phone: [facility] 05-05-2023 16:36-0400 Respiratory rate 18 /min MD Jacinto Max Work Phone: [facility] 05-05-2023 16:36-0400 SaO2% (BldA) [Mass fraction] 98 % MD Jacinto Max Work Phone: [facility] 04-15-2023 13:30-0500 Body height 167.64 cm MD Jacinto Max Work Phone: [facility] 04-15-2023 13:30-0500 Body mass index (BMI) [Ratio] 20.8 kg/m2 MD Jacinto Max Work Phone: [facility] 04-15-2023 13:30-0500 Body temperature 97.2 [degF] MD Jacinto Max Work Phone: [facility] 04-15-2023 13:30-0500 Body weight 58.57 kg MD Jacinto Max Work Phone: [facility] 04-15-2023 13:30-0500 Diastolic blood pressure 75 mm[Hg] MD Jacinto Max Work Phone: [facility] 04-15-2023 13:30-0500 Heart rate 60 /min MD Jacinto Max Work Phone: [facility] 04-15-2023 13:30-0500 Systolic blood pressure 165 mm[Hg] MD Jacinto Max Work Phone: [facility] 02-26-2023 10:00-0500 Body height 167.64 cm MD Jacinto Max Work Phone: [facility] 02-26-2023 10:00-0500 Diastolic blood pressure 76 mm[Hg] MD Jacinto Max Work Phone: [facility] 02-26-2023 10:00-0500 Systolic blood pressure 156 mm[Hg] MD Jacinto Max Work Phone: [facility] 02-25-2023 10:15-0500 Body height 175.26 cm MD Jacinto Max Work Phone: [facility] 02-25-2023 10:15-0500 Body weight 59.1 kg MD Jacinto Max Work Phone: [facility] 02-25-2023 10:02-0500 Diastolic blood pressure 74 mm[Hg] MD Jacinto Max Work Phone: [facility] 02-25-2023 10:02-0500 Heart rate 67 /min MD Jacinto Max Work Phone: [facility] 02-25-2023 10:02-0500 Systolic blood pressure 157 mm[Hg] MD Jacinto Max Work Phone: [facility] 02-18-2023 14:00-0500 Body height 167.64 cm Jacinto Max Other [facility] 02-18-2023 14:00-0500 Body mass index (BMI) [Ratio] 20.66 kg/m2 Jacinto Max Other [facility] [employer] Other 02-18-2023 14:00-0500 Body temperature 97.2 [degF] Jacinto Max Other [facility] [employer] Other 02-18-2023 14:00-0500 Body weight 58.06 kg Jacinto Max Other [facility] [employer] Other 02-18-2023 14:00-0500 Body weight 58.05 kg MD Jacinto Max Work Phone: [facility] 02-18-2023 14:00-0500 Diastolic blood pressure 66 mm[Hg] Jacinto Max Other [facility] 02-18-2023 14:00-0500 Systolic blood pressure 150 mm[Hg] Jacinto Max Other [facility] 02-16-2023 13:30-0500 Body height 167.64 cm Gypsy Mcmahon Other [facility] 02-16-2023 13:30-0500 Body mass index (BMI) [Ratio] 20.66 kg/m2 Gypsy Mcmahon Other [facility] [employer] Other 02-16-2023 13:30-0500 Body weight 58.06 kg Gypsy Mcmahon Other [facility] [employer] Other 02-16-2023 13:30-0500 Body weight 58.05 kg MD Jacinto Max Work Phone: [facility] 02-16-2023 13:30-0500 Diastolic blood pressure 68 mm[Hg] Gypsy Mcmahon Other [facility] 02-16-2023 13:30-0500 SaO2% (BldA) [Mass fraction] 96 % Gypsy Mcmahon Other [facility] [employer] Other 02-16-2023 13:30-0500 Systolic blood pressure 140 mm[Hg] Gypsy Mcmahon Other [facility] 02-04-2023 09:09-0500 Heart rate 84 /min MALATHI DEB [facility] 02-04-2023 09:09-0500 SaO2% (BldA) [Mass fraction] 95 % MALATHI DEB [facility] 02-04-2023 09:08-0500 Diastolic blood pressure 88 mm[Hg] MALATHI DEB [facility] 02-04-2023 09:08-0500 Mean blood pressure 121 mm[Hg] MALATHI DEB [facility] 02-04-2023 09:08-0500 Systolic blood pressure 188 mm[Hg] MALAHTI DEB [facility] 02-04-2023 09:08-0500 Respiratory rate 20 /min MALATHI DEB [facility] 02-04-2023 09:08-0500 Body temperature 97.7 [degF] MALATHI DEB [facility] 02-03-2023 09:15-0500 Heart rate 77 /min MALATHI DEB [facility] 02-03-2023 09:15-0500 SaO2% (BldA) [Mass fraction] 97 % MALATHI DEB [facility] 02-03-2023 09:14-0500 Respiratory rate 18 /min MALATHI DEB [facility] 02-03-2023 09:14-0500 Diastolic blood pressure 97 mm[Hg] MALATHI DEB [facility] 02-03-2023 09:14-0500 Mean blood pressure 130 mm[Hg] MALATHI DEB [facility] 02-03-2023 09:14-0500 Systolic blood pressure 197 mm[Hg] MALATHI DEB [facility] 02-03-2023 09:13-0500 Body temperature 98.06 [degF] MALATHI DEB [facility] 02-02-2023 09:10-0500 Heart rate 75 /min MALATHI DEB [facility] 02-02-2023 09:10-0500 SaO2% (BldA) [Mass fraction] 93 % MALATHI DEB [facility] 02-02-2023 09:09-0500 Respiratory rate 20 /min MALATHI DEB [facility] 02-02-2023 09:08-0500 Diastolic blood pressure 87 mm[Hg] MALATHI DEB [facility] 02-02-2023 09:08-0500 Mean blood pressure 123 mm[Hg] MALATHI DEB [facility] 02-02-2023 09:08-0500 Systolic blood pressure 194 mm[Hg] MALATHI EDB [facility] 02-02-2023 09:08-0500 Body temperature 97.7 [degF] MALATHI DEB [facility] 02-01-2023 09:50-0500 Heart rate 77 /min MALATHI DEB [facility] 02-01-2023 09:50-0500 Mean blood pressure 115 mm[Hg] MALATHI DEB [facility] 02-01-2023 09:10-0500 Heart rate 84 /min MALATHI DEB [facility] 01-29-2023 11:26-0500 Heart rate 75 /min MALATHI DEB [facility] 01-29-2023 11:26-0500 SaO2% (BldA) [Mass fraction] 95 % MALATHI DEB [facility] 01-29-2023 11:26-0500 Respiratory rate 16 /min MALATHI DEB [facility] 01-29-2023 11:25-0500 Diastolic blood pressure 83 mm[Hg] MALATHI DEB [facility] 01-29-2023 11:25-0500 Mean blood pressure 108 mm[Hg] MALATHI DEB [facility] 01-29-2023 11:25-0500 Systolic blood pressure 158 mm[Hg] MALATHI DEB [facility] 01-29-2023 11:25-0500 Body temperature 98.06 [degF] MALATHI DEB [facility] 01-29-2023 10:54-0500 Heart rate 74 /min MALATHI DEB [facility] 01-29-2023 10:54-0500 SaO2% (BldA) [Mass fraction] 97 % MALATHI DEB [facility] 01-29-2023 10:54-0500 Respiratory rate 16 /min MALATHI VIEIRA [facility] 01-29-2023 10:53-0500 Body temperature 97.52 [degF] MALATHI VIEIRA [facility] 01-29-2023 10:53-0500 Diastolic blood pressure 84 mm[Hg] MALATHI VIEIRA [facility] 01-29-2023 10:53-0500 Mean blood pressure 104 mm[Hg] MALATHI VIEIRA [facility] 01-29-2023 10:53-0500 Systolic blood pressure 146 mm[Hg] MALATHI VIEIRA [facility] 01-12-2023 13:30-0500 Body height 167.64 cm Hunter Brown Other [facility] [employer] Other 01-12-2023 13:30-0500 Body mass index (BMI) [Ratio] 22 kg/m2 Hunter Brown Other [employer] Other 01-12-2023 13:30-0500 Body weight 61.83 kg Hunter Brown Other [employer] Other 01-12-2023 13:30-0500 Diastolic blood pressure 60 mm[Hg] Hunter Brown Other [employer] Other 01-12-2023 13:30-0500 Systolic blood pressure 137 mm[Hg] Hunter Brown Other [employer] Other 01-05-2023 11:30-0500 Body height 167.64 cm Gypsy Mcmahon Other [employer] Other 01-05-2023 11:30-0500 Body mass index (BMI) [Ratio] 21.63 kg/m2 Gypsy Mcmahon Other [employer] Other 01-05-2023 11:30-0500 Body weight 60.78 kg Gypsy Mcmahon Other [employer] Other 01-05-2023 11:30-0500 Diastolic blood pressure 72 mm[Hg] Gypsy Mcmahon Other [employer] Other 01-05-2023 11:30-0500 Systolic blood pressure 162 mm[Hg] Gpysy Mcmahon Other [employer] Other 12-28-2022 13:30-0500 Body height 167.64 cm Malathi Velázquez Other [employer] Other 12-28-2022 13:30-0500 Body mass index (BMI) [Ratio] 19.98 kg/m2 Malathi Velázquez Other [employer] Other 12-28-2022 13:30-0500 Body weight 56.16 kg Malathi Velázquez Other [employer] Other 12-28-2022 13:30-0500 Diastolic blood pressure 78 mm[Hg] Malathi Velázquez Other [employer] Other 12-28-2022 13:30-0500 Systolic blood pressure 146 mm[Hg] Malathi Velázquez Other [employer] Other 12-15-2022 11:15-0500 Body height 167.64 cm Gypsy Mcmahon Other [employer] Other 12-15-2022 11:15-0500 Body mass index (BMI) [Ratio] 21.53 kg/m2 Gypsy Mcmahon Other [employer] Other 12-15-2022 11:15-0500 Body weight 60.51 kg Gypsy Mcmahon Other [employer] Other 12-15-2022 11:15-0500 Diastolic blood pressure 73 mm[Hg] Gypsy Mcmahon Other [employer] Other 12-15-2022 11:15-0500 Systolic blood pressure 178 mm[Hg] Gypsy Mcmahon Other [employer] Other 09-22-2022 14:14-0400 Blood Pressure Location MALATHI DEB [facility] 09-22-2022 14:14-0400 Diastolic blood pressure 90 mm[Hg] MALATHI DEB [facility] 09-22-2022 14:14-0400 Heart rate 78 /min MALATHI DEB [facility] 09-22-2022 14:14-0400 Systolic blood pressure 142 mm[Hg] MALATHI DEB [facility] 09-01-2022 14:15-0400 Body height 167.64 cm Gypsy Mcmahon Other [employer] Other 09-01-2022 14:15-0400 Body mass index (BMI) [Ratio] 21.14 kg/m2 Gypsy Mcmahon Other [employer] Other 09-01-2022 14:15-0400 Body weight 59.42 kg Gypsy Mcmahon Other [employer] Other 09-01-2022 14:15-0400 Diastolic blood pressure 56 mm[Hg] Gypsy Mcmahon Other [employer] Other 09-01-2022 14:15-0400 Systolic blood pressure 132 mm[Hg] Gypsy Mcmahon Other [employer] Other 06-09-2022 13:42-0400 Diastolic blood pressure 71 mm[Hg] Marvin [employer] [facility] 06-09-2022 13:42-0400 Heart rate 59 /min [employer] [facility] 06-09-2022 13:42-0400 Systolic blood pressure 183 mm[Hg] Marvin [employer] [facility] 04-24-2022 11:30-0400 Body height 167.64 cm Hunter Brown Other [employer] Other 04-24-2022 11:30-0400 Body mass index (BMI) [Ratio] 22.11 kg/m2 Hunter Brown Other [employer] Other 04-24-2022 11:30-0400 Body weight 62.14 kg Hunter Brown Other [employer] Other 04-24-2022 11:30-0400 Diastolic blood pressure 70 mm[Hg] Hunter Brown Other [employer] Other 04-24-2022 11:30-0400 Systolic blood pressure 159 mm[Hg] Hunter Brown Other [employer] Other 04-07-2022 14:15-0500 Body height 167.64 cm Gypsy Mcmahon Other [employer] Other 04-07-2022 14:15-0500 Body mass index (BMI) [Ratio] 21.79 kg/m2 Gypsy Mcmahon Other [employer] Other 04-07-2022 14:15-0500 Body weight 61.24 kg Gypsy Mcmahon Other [employer] Other 04-07-2022 14:15-0500 Diastolic blood pressure 62 mm[Hg] Gypsy Mcmahon Other [employer] Other 04-07-2022 14:15-0500 Systolic blood pressure 130 mm[Hg] Gypsy Mcmahon Other [employer] Other 03-11-2022 13:35-0500 Body temperature 97.5 [degF] MD Gypsy Mcmahon Work Phone: [facility] 03-11-2022 13:35-0500 Diastolic blood pressure 61 mm[Hg] MD Gypsy Mcmahon Work Phone: [facility] 03-11-2022 13:35-0500 Heart rate 60 /min MD Gypsy Mcmahon Work Phone: [facility] 03-11-2022 13:35-0500 Respiratory rate 18 /min MD Gypsy Mcmahon Work Phone: [facility] 03-11-2022 13:35-0500 SaO2% (BldA) [Mass fraction] 96 % MD Gypsy Mcmahon Work Phone: [facility] 03-11-2022 13:35-0500 Systolic blood pressure 135 mm[Hg] MD Gypsy Mcmahon Work Phone: [facility] 02-16-2022 10:45-0500 Body height 167.64 cm Gypsy Mcmahon Other [employer] Other 02-16-2022 10:45-0500 Body mass index (BMI) [Ratio] 21.46 kg/m2 Gypsy Mcmahon Other [employer] Other 02-16-2022 10:45-0500 Body weight 60.33 kg Gypsy Mcmahon Other [employer] Other 02-16-2022 10:45-0500 Diastolic blood pressure 70 mm[Hg] Gypsy Mcmahon Other [employer] Other 02-16-2022 10:45-0500 Systolic blood pressure 120 mm[Hg] Gypsy Mcmahon Other [employer] Other 02-11-2022 12:00-0500 Body height 172.72 cm Hunter Brown Other [employer] Other 02-11-2022 12:00-0500 Body mass index (BMI) [Ratio] 20.83 kg/m2 Hunter Brown Other [employer] Other 02-11-2022 12:00-0500 Body weight 62.14 kg Hunter Brown Other [employer] Other 02-11-2022 12:00-0500 Diastolic blood pressure 68 mm[Hg] Hunter Brown Other [employer] Other 02-11-2022 12:00-0500 Systolic blood pressure 144 mm[Hg] Hunter Brown Other [employer] Other 01-05-2022 10:30-0500 Body height 172.72 cm Hunter Brown Other [employer] Other 01-05-2022 10:30-0500 Body mass index (BMI) [Ratio] 22.04 kg/m2 Hunter Brown Other [employer] Other 01-05-2022 10:30-0500 Body weight 65.77 kg Hunter Brown Other [employer] Other 01-05-2022 10:30-0500 Diastolic blood pressure 78 mm[Hg] Hunter Brown Other [employer] Other 01-05-2022 10:30-0500 Systolic blood pressure 166 mm[Hg] Hunter Brown Other [employer] Other 03-27-2021 12:00-0500 Body height 172.72 cm Giana Griffiths Other [employer] Other 03-27-2021 12:00-0500 Body mass index (BMI) [Ratio] 22.96 kg/m2 Giana Rhoadeskes Other [employer] Other 03-27-2021 12:00-0500 Body weight 68.49 kg Giana Jfkes Other [employer] Other 01-27-2021 10:45-0500 Body height 172.72 cm Giana Jfkes Other [employer] Other 01-27-2021 10:45-0500 Body mass index (BMI) [Ratio] 24.48 kg/m2 Giana Jfkes Other [employer] Other 01-27-2021 10:47-9973 Body weight 73.03 kg Giana Griffiths Other [facility] [employer] Other Encounters Encounter Date Encounter Type Care Provider Facility Start: 06-23-2023 End: 06-24-2023 ambulatory [facility] Start: 06-17-2023 End: 06-17-2023 ambulatory [facility] Start: 06-15-2023 End: 06-15-2023 ambulatory MALATHI VIEIRA Facility: [facility] Start: 06-15-2023 End: 06-15-2023 Patient encounter procedure MALATHI VIEIRA [facility] Start: 05-28-2023 End: 05-28-2023 ambulatory Monie L Ly Facility:[facility] Start: 05-28-2023 End: 05-28-2023 ambulatory MD Gypsy Mcmahon Work Phone: [facility] Work Phone: Start: 05-28-2023 End: 05-28-2023 Patient encounter procedure MD Gypsy Mcmahon Work Phone: [facility]-CT Scan [facility] [place] Work Phone: Start: 05-25-2023 Non-patient / Non-visit MD Gypsy Mcmahon Work Phone: [facility] Work Phone: Start: 05-24-2023 End: 05-24-2023 Patient encounter procedure MD Gypsy Mcmahon Work Phone: [facility] Work Phone: Start: 05-21-2023 End: 05-21-2023 Patient encounter procedure MD Gypsy Mcmahon Work Phone: [facility] Work Phone: Start: 05-06-2023 Non-patient / Non-visit MD Gypsy Mcmahon Work Phone: [facility] Work Phone: Start: 05-05-2023 End: 05-05-2023 Emergency department patient visit Marvin Garcia Facility:[facility] Start: 05-05-2023 End: 05-05-2023 Emergency department patient visit MD Jacinto Max Work Phone: [facility] Work Phone: Start: 05-01-2023 Non-patient / Non-visit MD Jacinto Max Work Phone: [facility] Work Phone: Start: 04-15-2023 End: 04-15-2023 Patient encounter procedure MD Jacitno Max Work Phone: [facility] Infectious Disease Work Phone: Start: 04-06-2023 Non-patient / Non-visit MD Jacinto Max Work Phone: [facility] Work Phone: Start: 03-12-2023 End: 03-12-2023 ambulatory Jacinto Max Other [facility] [employer] Other Start: 03-12-2023 Telephone encounter Jacinto BA G Infectious Disease Start: 03-11-2023 End: 03-11-2023 ambulatory Jacinto Max Other [facility] [employer] Other Start: 03-11-2023 Telephone encounter Jacinto Bustamante Infectious Disease Start: 03-02-2023 End: 03-02-2023 ambulatory Gypsy Mcmahon Other [facility] [employer] Other Start: 03-02-2023 Telephone encounter Gypsy Mcmahon [facility] Start: 02-26-2023 End: 02-26-2023 Patient encounter procedure MD Jacinto Max Work Phone: [facility]- Start: 02-25-2023 End: 02-25-2023 ambulatory Jacinto Max Facility:[facility] Start: 02-25-2023 End: 02-25-2023 ambulatory MD Jacinto Max Work Phone: [facility] Work Phone: Start: 02-25-2023 End: 02-25-2023 Discharged Recurring MD Jacinto Max Work Phone: [facility]-Infusion Therapy - O/P Work Phone: Start: 02-18-2023 End: 02-18-2023 ambulatory Jacinto Max Other [employer] Other Start: 02-18-2023 Office outpatient ne w 45 minutes Jacinto Max [facility] Infectious Disease Start: 02-18-2023 End: 02-18-2023 Patient encounter procedure MD Jacinto Max Work Phone: [facility] Infectious Disease Work Phone: Start: 02-16-2023 End: 02-16-2023 ambulatory Gypsy Mcmahon Other [employer] Other Start: 02-16-2023 Office outpatient visit 15 minutes Gypsy Mcmhaon [facility] Start: 02-16-2023 End: 02-16-2023 Patient encounter procedure MD Jacinto Max Work Phone: [facility] Work Phone: Start: 01-29-2023 End: 05-05-2023 ambulatory MALATHI VIEIRA Facility:[facility] Start: 01-29-2023 End: 01-29-2023 Patient encounter procedure MALATHI VIEIRA [facility] Start: 01-29-2023 End: 05-05-2023 Recurring MALATHI VIEIRA [facility] Start: 01-26-2023 End: 01-26-2023 Patient encounter procedure MALATHI VIEIRA [facility] Start: 01-26-2023 End: 01-26-2023 ambulatory MALATHI VIEIRA [facility] [employer] Other Start: 01-26-2023 Telephone encounter Hunter brady [facility] Start: 01-20-2023 End: 01-20-2023 ambulatory Hunter Brown Other [employer] Other Start: 01-20-2023 Telephone encounter Hunter brady [facility] Start: 01-12-2023 End: 01-12-2023 ambulatory Hunter Brown Other [employer] Other Start: 01-12-2023 Office outpatient visit 25 minutes Hunter Brown [facility] Start: 01-12-2023 End: 01-12-2023 Patient encounter procedure MD Jacinto Max Work Phone: [facility] Gastroenterology Work Phone: Start: 01-11-2023 End: 01-11-2023 ambulatory Gypsy Mcmahon Other [employer] Other Start: 01-11-2023 Telephone encounter Gypsy Mcmahon [facility] Start: 01-05-2023 End: 01-05-2023 ambulatory Gypsy Mcmahon Other [employer] Other Start: 01-05-2023 Telephone encounter Gypsy Mcmahon [facility] Start: 01-05-2023 Transitional care manage srvc 14 day discharge Gypsy Mcmahon [facility] Start: 01-05-2023 End: 01-05-2023 Patient encounter procedure MD Jacinto Max Work Phone: [facility] Work Phone: Start: 12-30-2022 End: 12-30-2022 ambulatory Malathi Hoodmadelinedoug Other [employer] Other Start: 12-30-2022 Telephone encounter Malathi arias [facility] Start: 12-28-2022 End: 12-28-2022 ambulatory Malathi Melania Other [employer] Other Start: 12-28-2022 Office outpatient visit 15 minutes Malathi Melania [facility] Start: 12-28-2022 End: 12-28-2022 Patient encounter procedure MD Jacinto Max Work Phone: [facility] Work Phone: Start: 12-15-2022 End: 12-15-2022 ambulatory Gypsy Mcmahon Other [employer] Other Start: 12-15-2022 Office outpatient visit 15 minutes Gypsy Mcmahon [facility] Start: 12-15-2022 Telephone encounter Gypsy Mcmahon [facility] Start: 12-15-2022 End: 12-15-2022 Patient encounter procedure MD Jacinto Max Work Phone: [facility] Work Phone: Start: 11-11-2022 End: 11-11-2022 ambulatory EHAB [facility] Start: 10-29-2022 End: 10-29-2022 ambulatory Hunter Brown Facility:[facility] Start: 09-22-2022 End: 09-22-2022 ambulatory MALATHI VIEIRA Facility:[facility] Start: 09-22-2022 End: 09-22-2022 Patient encounter procedure MALATHI VIEIRA [facility] Start: 09-10-2022 End: 09-10-2022 ambulatory Jose G Ellington Other [employer] Other Start: 09-10-2022 Nursing evaluation o f patient and report Jose G Ellington [facility] Start: 09-08-2022 End: 09-08-2022 ambulatory Hunter Galoormack Other [employer] Other Start: 09-08-2022 Telephone encounter Hunter Palomo [facility] Gastroenterology Start: 09-01-2022 End: 09-01-2022 ambulatory Gypsy Mcmahon Other [employer] Other Start: 09-01-2022 Office outpatient visit 15 minutes Gypsy Mcmahon [facility] Start: 08-27-2022 End: 08-27-2022 ambulatory Gypsy Mcmahon Other [employer] Other Start: 08-27-2022 Telephone encounter Gypsy Mcmahon [facility] Start: 06-30-2022 End: 06-30-2022 ambulatory AB [facility] Start: 06-09-2022 End: 06-09-2022 Patient encounter procedure Marvin Doug KWON [facility] Start: 05-27-2022 End: 05-28-2022 ambulatory MALATHI VIEIRA Facility: Start: 05-19-2022 End: 05-19-2022 Patient encounter procedure MALATHI VIEIRA [facility] Start: 05-14-2022 End: 05-14-2022 ambulatory Gypsy Mcmahon Other [employer] Other Start: 05-14-2022 Telephone encounter Gypsy Mcmahon [facility] Start: 05-11-2022 End: 05-12-[address] GYPSY MCMAHON Facility:[facility] Start: 05-01-2022 (Televisit) Televisit Gypsy Evangelista [facility] Start: 05-01-2022 End: 05-01-2022 ambulatory Gypsy Mcmahon Other [employer] Other Start: 05-01-2022 Telephone encounter Gypsy Mcmahon [facility] Start: 04-28-2022 End: 04-29-[address] GYPSY MCMAHON Facility:[facility] Start: 04-24-2022 End: 04-24-2022 ambulatory Hunter Brown Other [employer] Other Start: 04-24-2022 Office outpatient visit 15 minutes Hunter Brown [facility] Gastroenterology Start: 04-16-2022 End: 04-16-2022 ambulatory Gypsy Mcmahon Other [employer] Other Start: 04-16-2022 Telephone encounter Gypsy Mcmahon [facility] Start: 04-14-2022 End: 04-14-[address] GYPSY MCMAHON Facility:[facility] Start: 04-07-2022 End: 04-07-2022 ambulatory Gypsy Mcmahon Other [employer] Other Start: 04-07-2022 Office outpatient visit 15 minutes Gypsy Mcmahon [facility] Start: 04-03-2022 End: 04-03-2022 ambulatory Gypsy Mcmahon Other [employer] Other Start: 04-03-2022 Telephone encounter Gypsy Mcmahon [facility] Start: 03-30-2022 End: 03-30-2022 Departed Referred MD Gypsy Mcmahon Work Phone: [facility]-Lab [facility] [place] Work Phone: Start: 03-30-2022 End: 03-30-2022 ambulatory MD Gypsy Mcmahon Work Phone: [facility] Work Phone: Start: 03-30-2022 Nursing evaluation o f patient and report Gypsy Mcmahon [facility] Start: 03-20-2022 End: 03-21-[address] GYPSY MCMAHON Facility:[facility] Start: 03-19-2022 End: 03-19-2022 ambulatory Hunter Brown Other [employer] Other Start: 03-19-2022 Telephone encounter Hunter brady [facility] Start: 03-11-2022 Registered Recurring MD Gypsy Mcmahon Work Phone: [facility]-Infusion Therapy - O/P Work Phone: Start: 02-23-2022 End: 02-24-[address] GYPSY MCMAHON Facility:[facility] Start: 02-19-2022 End: 02-19-2022 ambulatory Gypsy Mcmahon Other [employer] Other Start: 02-19-2022 Telephone encounter Gypsy Mcmahon [facility] Start: 02-17-2022 End: 02-18-[address] GYPSY MCMAHON Facility:[facility] Start: 02-16-2022 End: 02-16-2022 ambulatory Gypsy Mcmahon Other [employer] Other Start: 02-16-2022 Office outpatient visit 15 minutes Gypsy Mcmahon [facility] Start: 02-16-2022 End: 02-16-2022 Departed Referred MD Gypsy Mcmahon Work Phone: [facility] [place] Work Phone: Start: 02-11-2022 End: 02-11-2022 ambulatory Hunter Brown Other [employer] Other Start: 02-11-2022 Office outpatient visit 15 minutes Hunter Brown [facility] Start: 02-11-2022 Telephone encounter Hunter brady [facility] Start: 01-26-2022 End: 01-27-[address] GYPSY MCMAHON Facility:[facility] Start: 01-15-2022 End: 01-16-[address] GYPSY MCMAHON Facility:[facility] Start: 01-06-2022 End: 01-06-2022 ambulatory uHnter Brown Other [employer] Other Start: 01-06-2022 Telephone encounter Hunter brady [facility] Start: 01-05-2022 End: 01-06-2022 ambulatory CLAU Shrestha [facility] [employer] Other Start: 01-05-2022 Office outpatient visit 25 minutes Hunter Brown [facility] Start: 12-27-2021 End: 12-27-[address] REY MONTGOMERY Facility:[facility] Start: 12-18-2021 End: 12-19-2021 ambulatory CLAU NASCIMENTO Facility:[facility] Start: 12-08-2021 End: 12-09-[address] GYPSY MCMAHON Facility:[facility] Start: 11-18-2021 End: 11-18-2021 ambulatory Hunter Brown Other [employer] Other Start: 11-18-2021 Telephone encounter Hunter brady [...] 08-18-2021 End: 08-18-2021 ambulatory Giana Griffiths Other [employer] Other Start: 08-18-2021 Telephone encounter Giana Griffiths [facility] Gastroenterology Start: 08-12-2021 End: 08-12-[address] GYPSY MCMAHON Facility: Start: 04-22-2021 End: 04-22-2021 ambulatory Giana Jfluis Other [employer] Other Start: 04-22-2021 Telephone encounter Giana Jfluis [facility] Gastroenterology Start: 03-27-2021 End: 03-27-2021 ambulatory Giana Jian Other [employer] Other Start: 03-27-2021 Office outpatient visit 25 minutes Giana Jfluis [facility] Gastroenterology Start: 01-27-2021 End: 01-27-2021 ambulatory Giana Jfluis Other [employer] Other Start: 01-27-2021 Office outpatient visit 25 minutes Giana Jian [facility] Gastroenterology Start: 01-27-2021 Telephone encounter Giana Griffiths [facility] Gastroenterology Procedures Date Procedure Procedure [...] 03-30-2022 Bacteria identified in Urine by Culture [facility] Bacteria identified in Stool by Culture [facility] Bacteria identified in Urine by Culture [facility] Elastase.pancreatic [Mass/mass] in Stool [facility] Patient referral [facility] Work Phone: [facility] Immunizations Immunization Date Immunization Notes Care Provider Bob henry 02-16-2022 Shingrix 50 MCG/0.5M L; Translations: [Shingrix 50 MCG/0.5ML] Hunter Brown Other [employer] Other 01-15-2022 influenza virus vaccine, unspecified formulation MALATHI VIEIRA [facility] 01-15-2022 SARS-CoV-2 (COVID-19 ) [id number] MALATHI VIEIRA [facility] 01-23-2021 SARS-CoV-2 (COVID-19 ) mRNA BNT-162b2 vax MALATHI DEB [facility] 01-06-2021 influenza virus vaccine, unspecified formulation MALATHI DEB [facility] 03-27-2020 SARS-CoV-2 (COVID-19 ) mRNA BNT-162b2 vax MALATHI DEB [facility] 03-04-2020 SARS-CoV-2 (COVID-19 ) mRNA BNT-162b2 vax MALATHI DEB [facility] 12-06-2019 influenza virus vaccine, unspecified formulation MALATHI DEB [facility] 12-14-2018 influenza virus vaccine, unspecified formulation MALATHI DEB [facility] 02-02-2018 influenza virus vaccine, unspecified formulation MALATHI DEB [facility] 11-08-2017 pneumococcal polysaccharide vaccine, 23 valent MALATHI DEB [facility] 11-02-2017 influenza virus vaccine, unspecified formulation MALATHI DEB [facility] 12-09-2016 influenza virus vaccine, unspecified formulation MALATHI DEB [facility] 12-02-2016 influenza virus vaccine, unspecified formulation MALATHI DEB [facility] 12-17-2015 influenza virus vaccine, unspecified formulation MALATHI DEB [facility] 10-10-2015 influenza virus vaccine, unspecified formulation MALATHI VIEIRA [facility] 11-19-2014 influenza virus vaccine, unspecified formulation MALATHI VIEIRA [facility] 11-09-2014 pneumococcal polysaccharide vaccine, 23 valent MALATHI VIEIRA [facility] NEGATED: Highlighted row has not occurred!01-26-2023 influenza virus vaccine, unspecified formulation MALATHI VIEIRA [facility] Payers Date Payer Category Payer Self-pay [id number] 1958 [facility] [id number] 1958 Medicare [id number] 2.1 [id number] 1936 Unknown [id number] 2.16.84 0.1.941569.3.579.2.593 1936 Unknown [id number] 2.16.84 0.1.448709.3.579.2.593 1936 Unknown [id number] 2.16.84 0.1.873260.3.579.2.593 1936 Unknown [id number] 2.16.84 0.1.172210.3.579.2.593 1936 Unknown [id number] 2.16.84 0.1.763439.3.579.2.593 1936 Unknown [id number] 2.16.84 0.1.717192.3.579.2.593 1936 Unknown [id number] 2.16.84 0.1.426933.3.579.2.593 1936 Unknown [id number] 2.16.84 0.1.095467.3.579.2.593 1936 Unknown [id number] 2.16.84 0.1.073647.3.579.2.593 1936 Unknown [id number] 2.16.84 0.1.420693.3.579.2.593 1936 Unknown [id number] 2.16.84 0.1.912232.3.579.2.593 1936 Unknown [id number] 2.16.84 0.1.845092.3.579.2.593 1936 Unknown [id number] 2.16.84 0.1.506360.3.579.2.593 1936 Unknown [id number] 2.16.84 0.1.409336.3.579.2.593 1936 Unknown [id number] 2.16.84 0.1.239431.3.579.2.593 1936 Unknown [id number] 2.16.84 0.1.494238.3.579.2.593 1936 Unknown [id number] 2.16.84 0.1.555146.3.579.2.593 1936 Unknown [id number] 2.16.84 0.1.859687.3.579.2.593 1936 Unknown [id number] 2.16.84 0.1.517266.3.579.2.593 1936 Unknown [id number] 2.16.84 0.1.717946.3.579.2.593 1936 Unknown [id number] 2.16.84 0.1.609487.3.579.2.593 1936 Unknown [id number] 2.16.8 40.1.657987.3.579.2.1286 1936 Unknown [id number] 2.16.8 40.1.966321.3.579.2.1286 1936 Unknown [id number] 2.16.8 40.1.083415.3.579.2.727 1936 Unknown [id number] 2.16.8 40.1.343361.3.579.2.727 1936 Unknown [id number] 2.16.8 40.1.447922.3.579.2.727 1936 Unknown [id number] 2.16.8 40.1.481840.3.579.2.727 Unknown [id number] 2.16.8 40.1.969112.3.579.2.531 Unknown [id number] 2.16.8 40.1.448387.3.579.2.531 Social History Date Type Detail Facility Unknown if ever smoked [employer] Other Sex Assigned At [facility] Start: 1935 Sex Assigned At Female F [facility] Start: 05-19-2022 End: 06-09-2022 Tobacco smoking status Ex-smoker (finding) [facility] Start: 09-22-2022 Tobacco smoking status Never [facility] Start: 05-05-2023 Tobacco smoking stat [facility] Never smoked tobacco (finding) [facility] Functional Status Date Assessment Result Facility 01-26-2023 Functional Status N/A [facility] 09-22-2022 Functional Status N/A [facility] 06-09-2022 Functional Status N/A [facility] 05-19-2022 Functional Status N/A [facility] Clinical Notes 01-27-2021 to 03-12-2023 Note Date & Type Note Facility 03-12-2023 Evaluation note Encounter Date Diagnosis Assessment Notes Mar, 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 Preventative measures were discussed. Vitamin C [id number] recommended as well as topical Thera workx [...] n due to immunosuppression (ICD-10 - Z91.89) [employer] Other 01-09-2024 Evaluation note* Encounter Date Diagnosis [...] pain. Feb, Pain, unspecified (ICD-10 - R52) [employer] Other 12-19-2023 Hospital Discharge instructions Patient Education 01/26/2023 16:05:17 Urinary Tract Infection, Adult, Hstp-sl-Wybk Urinary Tract Infection, Adult A urinary tract [...] Follow these instructions at home: Medicines Take [id number]-bwvdmvx and prescription medicines only as told by [...] provider. Document Revised: 09/06/2020 Document Reviewed: 09/06/2020 [place] Patient Education 2022 [employer]. Follow Up Care 06/09/2022 14:50:19 With:MALATHI VIEIRA PA-C, URL Address: [address] [place] [address] [phone] When: Unknown Comments:f/u in [place] [facility] Tatyana 12-13-2023 Evaluation note* Encounter Date Diagnosis Assessment Notes Treatment Notes Treatment Clinical Notes Jan, Diarrhea (ICD-10 - R19.7) [employer] Other 12-05-2023 Evaluation note* Encounter Date Diagnosis [...] a day, we will re-test for C-diff [employer] [facility] Other 11-28-2023 Evaluation note* Encounter Date Diagnosis Assessment Notes Treatment Notes Treatment Clinical Notes Dec, Clostridium difficile colitis (ICD-10 - A04.72) Finish meds as prescribed. (cipro, Flagyl) Followup w Dr. Brown as scheduled. Understands the c diff could recur. Followup as needed Discussed good nutrition and healthy diet. [employer] Other 11-20-2023 Evaluation note* Encounter Date Diagnosis Assessment Notes Treatment Notes Treatment Clinical Notes Dec, Diarrhea, unspecified type (ICD-10 - R19.7) Pt appears to be having secondary from viral infection. There is no abdominal pain on exam and pt is afebrile which is reassuring. C. diff infection is a possibility as she was [facility] antibitics for a UTI, will check [...] Pt understands and agrees with the plan. [employer] Other 11-07-2023 Evaluation note* Encounter Date Diagnosis Assessment Notes Treatment Notes Treatment Clinical Notes Dec, Frequent UTI (ICD-10 - N39.0) [employer] Other 11-07-2023 Evaluation note* Encounter Date Diagnosis [...] w Dr. Licea today. Consider PT at [facility] or the [facility]. [employer] [facility] [...] Rfl: miscellaneous medical supply (Blood Pressure Cuff) [facility] [place], 1 kit in the morning and at [...] veins Hypertension - Uncon (more content not included)...[facility]08-15-2023 Hospital Discharge instructions Patient Education 09/22/2022 15:32:53 Urinary Tract Infection, Adult, Dqvx-gl-Ggia Urinary Tract Infection, Adult A urinary tract [...] Follow these instructions at home: Medicines Take ldgt-fgc-oanwkvl and prescription medicines only as told by [...] provider. Document Revised: 09/06/2020 Document Reviewed: 09/06/2020 [place] Patient Education 2022 [employer]. Follow Up Care 09/22/2022 10:38:22 With:DEB ZAZUETA, MALATHI Olvera, URL Address: [address] [place] [phone] When: Unknown [facility] 08-03-2023 Evaluation note* Encounter Date Diagnosis Assessment Notes Treatment Notes Treatment Clinical Notes Sep, Dysuria (ICD-10 - R30.0) [employer] Other 08-01-2023 Evaluation note* Encounter Date Diagnosis Assessment Notes Treatment Notes Treatment Clinical Notes Sep, Microscopic colitis, unspecified microscopic colitis type (ICD-10 - K52.839) [employer] Other 07-25-2023 Evaluation note* Encounter Date Diagnosis Assessment Notes Treatment Notes Treatment Clinical Notes Aug, Frequent UTI (ICD-10 - N39.0) Continue estrogen cream. Review with Urology on her followup appt. Discussed causes of UTIs Aug, Lymphocytic colitis (ICD-10 - K52.832) Improved with GI at [facility]. 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 Barry. Reviewed medications and explained their purpose. [employer] Other 07-20-2023 Evaluation note* Encounter Date Diagnosis Assessment Notes Treatment Notes Treatment Clinical Notes Aug, Recurrent UTI (ICD-10 - N39.0) [employer] [facility] Chief Complaint: New [...] asked her to discuss this with her resource agent. Depending on the risk-benefit ratio will consider starting 1 or the other. She is on Zocor which is not ideal. If her cholesterol is not controlled, would suggest switching her to 40 mg of Lipitor or 20 mg of Crestor. Follow-up in 6 months or sooner should problems arise or her stress test revealed ischemia Jake Barry MD, MPH, [facility], [facility], [facility] Interventional Cardiology Pager Email: [email or web address]05-02-2023 Hospital Discharge instructions Patient Education 06/09/2022 14:15:56 Urinary Tract Infection, Adult, Toqw-hi-Jcai Urinary Tract Infection, Adult A urinary tract [...] Follow these instructions at home: Medicines Take jwqa-lsr-mzacnap and prescription medicines only as told by [...] provider. Document Revised: 09/06/2020 Document Reviewed: 09/06/2020 [employer] Patient Education 2022 [employer]. Follow Up Care 06/01/2022 10:03:13 With:CHER KRISHNAN, Marvin Camacho, URL Address: [facility] [address] [place] [phone] When:10/10/2022 [facility] 04-11-2023 Hospital Discharge instructions Patient [...] Treatment for this condition includes: Antibiotic medicine. Cacr-bez-gejeeed medicines to treat discomfort. Drinking enough water [...] Follow these instructions at home: Medicines Take rjcd-egx-cwogfet and prescription medicines only as told by [...] 11/04/2005 Document Revised: 01/12/2019 Document Reviewed: 08/04/2018 [employer] Patient Education 2020 [employer]. Follow Up Care 04/20/2022 10:50:51 With:MALATHI VIEIRA PA-C, URL Address: [address] [place] [address] When: Unknown [facility] Evaluation note* Encounter Date Diagnosis Assessment Notes Treatment Notes Treatment Clinical Notes May, Frequent UTI (ICD-10 - N39.0) [employer] Other 03-24-2023 Evaluation note* Encounter Date Diagnosis [...] back this morning. antibiotic at her pharmacy. [employer] Other 03-17-2023 Evaluation note* Encounter Date Diagnosis Assessment Notes Treatment Notes Treatment Clinical Notes Apr, Lymphocytic colitis (ICD-10 - K52.832) Continue Entyvio as directed Continue Lotronex 0.5 mg 1/2 tablet daily Rto 4 months [employer] Other 03-09-2023 Evaluation note* Encounter Date Diagnosis Assessment Notes Treatment Notes Treatment Clinical Notes Apr, Acute cystitis without hematuria (ICD-10 - N30.00) [employer] Other 02-28-2023 Evaluation note* Encounter Date Diagnosis Assessment Notes Treatment Notes Treatment Clinical Notes Mar, Recurrent UTI (ICD-10 - N39.0) Discussed options. Will try estrogen cream for vaginal health. Denies personal history of female cancers. Will also set up w Urology Mar, Colitis (ICD-10 - K52.9) Further treatment with Dr. Manny freed appt on 04/24 [employer] Other 02-20-2023 Evaluation note* Encounter Date Diagnosis Assessment Notes Treatment Notes Treatment Clinical Notes Mar, Dysuria (ICD-10 - R30.0) [employer] Other 01-09-2023 Evaluation note* Encounter Date Diagnosis Assessment Notes Treatment Notes Treatment Clinical Notes Feb, Acute cystitis without hematuria (ICD-10 - N30.00) Sent to [facility] for urine culture - will treat based on results. Feb, Encounter for immunization (ICD-10 - Z23) Feb, Microscopic colitis, unspecified microscopic colitis type (ICD-10 - K52.839) Keep appt w Dr. Brown. Discussed boost or other supplement to gain weight Feb, Gastric ulcer (ICD-10 - K25.9) Encouraged her to continue pantoprazole [employer] Other 01-04-2023 Evaluation note* Encounter Date Diagnosis Assessment Notes Treatment Notes Treatment Clinical Notes Feb, Lymphocytic colitis (ICD-10 - K52.832) Start Entyvio infusions every 8 weeks Continue Budesonide, Alosetron, Imodium, and Pepto for now until starting Entyvio. Pt to keep record of bowel movements - how many and consistency Follow up in 2 months Feb, Fecal incontinence (ICD-10 - R15.9) [employer] Other 11-28-2022 Evaluation note* Encounter Date Diagnosis [...] Pantoprazole as prescribed Okay to stop Sucralfate [employer] Other 09-25-2022 NoteOPERATIVE NOTE OPERATION DATE: 11/04/2021 [...] was taken to PACU in good condition.[facility] 03-27-2021 Evaluation note* Encounter Date Diagnosis Assessment Notes Treatment Notes Treatment Clinical Notes Mar, Microscopic colitis, unspecified microscopic colitis type (ICD-10 - K52.839) INCREASE COLESTIPOL TO 4 TABS AT LUNCHTIME DAILY IF NOT IMPROVED ON HIGHER DOSE PT TO CALL ON 03/31 FOR ALTERNATIVE PLAN Mar, Irritable bowel syndrome with diarrhea (ICD-10 - K58.0) [facility] [employer] Other 12-20-2021 Evaluation note* Encounter Date Diagnosis Assessment Notes Treatment Notes Treatment Clinical Notes Jan, Microscopic colitis, unspecified microscopic colitis type (ICD-10 - K52.839) START COLESIPOL 2 PO DAILY CONTINUE BUDESONIDE WITHOUT CHANGE 3 PO Q AM AND MAYBE CONSIDERING STOP THIS IF COLESTIPOL IS WORKING ENOUGH TO CONTROL HER SYMPTOMS [employer] Other 12-20-2021 Evaluation note* Encounter Date Diagnosis Assessment Notes Treatment Notes Treatment Clinical Notes Jan, Microscopic colitis, unspecified microscopic colitis type (ICD-10 - K52.839) [employer] Other Evaluation + Plan note No data available for this section [facility] evaluation + Plan note Future Appointments Appointment Date:10/27/2022 01:00:00 PM Scheduled Provider:MALATHI VIEIRA PA-C Location:[facility] Appointment Type:URO Office Visit [facility] Evaluation + Plan note Future Appointments Appointment Date:12/29/2022 01:00:00 PM Scheduled Provider:MALATHI VIEIRA PA-C Location:[facility] Appointment Type:URO Office Visit [facility] evaluation + Plan note Future Appointments Appointment Date:06/15/2023 02:00:00 PM Scheduled Provider:MALATHI VIEIRA PA-C Location:[facility] Appointment Type:URO Office Visit [facility] evaluation + Plan note Future Appointments Appointment Date:01/30/2023 10:30:00 AM Scheduled Provider: Location:[facility] Appointment Type:ASU IV Antibiotic (FT) Appointment Date:01/31/2023 10:30:00 AM Scheduled Provider: Location:[facility] Appointment Type:ASU IV Antibiotic (FT) Appointment Date:02/01/2023 10:30:00 AM Scheduled Provider: [facility] App[facility] Type:ASU IV Antibiotic (FT) Appointment Date:02/02/2023 10:30:00 AM Scheduled Provider: Location:[facility] Appointment Type:ASU IV Antibiotic (FT) Appointment Date:02/03/2023 10:30:00 AM Scheduled Provider: Location:[facility] Appointment Type:ASU IV Antibiotic (FT) Appointment Date:02/04/2023 10:30:00 AM Scheduled Provider: Location:[facility] Appointment Type:ASU IV Antibiotic (FT) Appointment Date:06/15/2023 02:00:00 PM Scheduled Provider:MALATHI VIEIRA PA-C Location:[facility] Appointment Type:URO Office Visit [facility] noteNo InformationNorth Denator Other Evaluation noteNo assessment information available [facility] Work Phone: Evaluation note* Diagnosis Onset Date Resolution Status Recurrent Clostridioides difficile diarrhea acute [facility] Work Phone: Evaluation note* Diagnosis Onset Date Resolution Status Recurrent Clostridioides difficile diarrhea acute Diarrhea acute Microscopic colitis acute Recurrent Clostridioides difficile diarrhea acute Recurrent UTI acute [facility] Work Phone: Hismqyi general Narrative - Reported* Type Description Date Medical History HTN Medical History hyperlipidemia Medical History microscopic colitis Surgical History T&A Surgical History Quad by-pass Surgical History total hysterectomy Surgical History gall bladder Surgical History Cataracts Surgical History Right Knee Scope Surgical History Sphincterectomy Surgical History Left Rotator Scope Surgical History Hernia Repair 03/24/2012 Hospitalization History See Surgical Hx [employer] Other Hisfzuu general Narrative - Reported* Type Description Date [...] Hospitalization History See Surgical Hx Hospitalization History [facility] 12/2022 [employer] Other Hisvgop general Narrative - Reported* Type Description Date [...] Hospitalization History See Surgical Hx Hospitalization History [facility] 12/2022 [employer] Other Hisocog general Narrative - Reported* Type Description Date [...] Hospitalization History See Surgical Hx Hospitalization History [facility] 12/2022 [employer] Other History general Narrative - Reported* Type [...] Hospitalization History See Surgical Hx Hospitalization History [facility] 12/2022 [employer] Other Hospital Discharge instructions No data available for this section [facility] No data available for this section [facility] Summary Purpose Family History No Family History [...] November 22, 2017 10:57am Hospital Course Note [facility] Clinical Discharge Summary PERSON INFORMATION Name VINCENT HSU Age 83 Years 1935 Sex FEMALE Language Georgian PCP Lisandro KRISHNAN, Gypsy Olvera Marital Status Med Service Med/Surg Acct# Arrival 09/25/2019 06:52:00 Visit Reason SURGERY - LEFT TOTAL HIP [facility] Address: [address] [place] [address] Comment: PROVIDER INFORMATION VITALS INFORMATION Vital Sign [...] Recurrent UTI Reason for Referral Reason DUPLICATE [facility] office - frequent UTIs. Diagnosis 1 Frequent UTI (N39.0) Referral Organization [facility] [employer] [facility] Referring Provider First Name Gypsy Referring Provider Last Name Lisandro Referring Provider [facility] [employer] Referred [facility] Referred Provider Beau Hernandez Referred Address [address],[place], [place],[address] Referred Provider Specialty Urology Referral Priority Routine General Notes Tatyana Bojorquez 01:56:52 PM >received today Tatynaa Bojorquez 05/14/2022 02:02:41 PM >attachments made, notes locked, referral faxed Tatyana Bojorquez 05/14/2022 03:25:50 PM >DUPLICATE REFERRAL Reason *FU 04/28 [facility] office - recurrent UTIs. Diagnosis 1 Recurrent UTI (N39.0 ) Referral Organization [facility] [employer] jah Referring Provider First Name Gypsy Referring Provider Last Name Lisandro Referring Provider [facility] [employer] [facility] Referred Provider Gerson Juárez Referred Address [address] [place],[address] Referred Provider Specialty Urology Referral Priority Routine [...] CREATED AUTHOR AUTHOR'S ORGANIZ ATION 05/31/2022 [facility] DATE CREATED AUTHOR AUTHOR'S ORGANIZ ATION 11/15/[address] [facility] DATE CREATED AUTHOR AUTHOR'S ORGANIZ ATION 05/30/2023 [facility] DATE CREATED AUTHOR AUTHOR'S ORGANIZ ATION 06/19/2023 [facility] DATE CREATED AUTHOR AUTHOR'S ORGANIZ ATION 06/26/2023 [facility] DATE CREATED AUTHOR AUTHOR'S ORGANIZ ATION 07/29/2023 [facility] REASON FOR VISIT (unrecogniz [...] on alosetron, Patient was recently inpatient at [facility] and was diagnosed with gastric ulcerPRESCRIPTIONPATIENT HERE FOR 1 MONTH FOLLOW UP LYMPHOCYTIC COLITIS.No InformationEntyvioCheck upREFILLUANo Informationurine cultureDISCUSSIONurine culturereferralPATIENT HERE FOR 2 MONTH FOLLOW UPupset stomach, vomiting and diarrheautiurine culturerefillmedication discussREFILLSUA-ConfusionRefillTBHNot Feeling WellUpdateTCE.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 [facility] [employer] [facility]. provides no warranty or guarantee of the accuracy or completeness of information in this document.
== END 2023-09-16 09:52 | disposition home or self-care (01) ==
LOC: US 09:51
PROVIDERS: PCP Family Medicine; Visit Provider Podiatrist Foot & Ankle Surgery
DX: I73.9 Peripheral vascular disease, unspecified (principal)
CPT/HCPCS: 93925

== ENCOUNTER 2023-09-27 10:00 | Outpatient (OUT) | payer MEDICARE, BC, SELFPAY | END 2023-09-27 10:01 | disposition home or self-care (01) | LOC: WC 09-28 11:39 | PROVIDERS: PCP Family Medicine; Visit Provider Physician Assistant | DX: L97.911 Non-pressure chronic ulcer of unspecified part of right lower leg limited to breakdown of skin (principal); L97.411 Non-pressure chronic ulcer of right heel and midfoot limited to breakdown of skin; I87.312 Chronic venous hypertension (idiopathic) with ulcer of left lower extremity; L97.822 Non-pressure chronic ulcer of other part of left lower leg with fat layer exposed | CPT/HCPCS: G0463 ==

== ENCOUNTER 2023-10-26 17:27 | Outpatient (REF) | payer MEDICARE, BC, SELFPAY ==
[2023-10-26 18:02] LABS: Bilirubin Urine NEGATIVE (NEGATIVE); Blood Urine NEGATIVE (NEGATIVE); Clarity Urine CLEAR (CLEAR); Color Urine LT. YELLOW (YELLOW); Glucose Urine UA NEGATIVE (NEGATIVE); Ketones Urine NEGATIVE (NEGATIVE); Leukocyte Esterase Urine SMALL (NEGATIVE); Nitrite Urine POSITIVE (NEGATIVE); Protein Urine NEGATIVE (NEG/TRACE); Specific Gravity Urine 1.025 (1.005-1.025); Urobilinogen Urine 0.2 EU/dL (0.2-1.0)
== END 2023-10-26 17:28 | disposition home or self-care (01) ==
LOC: LAB 17:27
PROVIDERS: PCP Family Medicine; Visit Provider Internal Medicine Infectious Disease
DX: N39.0 Urinary tract infection, site not specified (principal)
CPT/HCPCS: 81003; 87086; 87186

== ENCOUNTER 2023-11-03 15:27 | Outpatient (OUT) | payer MEDICARE, BC, SELFPAY ==
--- OUTSIDE RECORDS SUMMARY | 2023-11-03 15:36 | XMS_ITS | CCD ---
Author Organization [facility] Care Team Providers Care Advocacy Director Name Role Phone Giana Villar Unavailable Hunter Brown Unavailable [phone] MD Gypsy Mcmahon Primary Care Provider MD Gypsy Mcmahon Attending Provider [phone] MD Hunter Brown Attending Provider [phone] Gypsy Mcmahon Unavailable GYPSY MCMAHON Primary Care Physician DR GYPSY MCMAHON Admitting Unavailable MCMAHON, DR GYPSY Olvera Consulting Unavailable MCMAHON, DR GYPSY Olvera Attending Unavailable MCMAHON, DR GYPSY Olvera Primary Care Unavailable VALENTINA, DR REY Bustamante Attending Unavailjhonatan MONTGOMERY, DR REY Bustamante Consulting Unavailjhonatan MONTGOMERY, DR REY Bustamante Admitting Unavailabl e MCMAHON, DR GYPSY Olvera Primary Care Unavailable KAREN ., TIFFANIE VALLES Consulting Unavailjhonatan e MCMAHON, [...] Primary Care Unavailable CLAU NASCIMENTO Attending Unavailable PILY, CLAU Shrestha Admitting Unavailable LISANDRO, DR GYPSY Olvera Primary [...] G Ell[place] Unavailable [facility] Attending [facility] Attending Unavailable Malathi Velázquez Unavailable MD Jacinto Max Attending Provider MD Jacinto Max Referring Provider MD Gypsy Mcmahon Primary Care Provider Jacinto Max Unavailable MD Jacinto Max Attending Provider MD Jacinto Max Referring Provider MD Gypsy Mcmahon Primary Care Provider TuDO Marvin moreno Emergency Provider [phone] MD Gypsy Mcmahon Primary Care Provider [phone] [place], DO Monie Gastelum Attending Provider Jacinto Max Admitting Unavailable Jacinto Max Attending Unavailable Jacinto Max Referring Unavailable Gypsy Mcmahon Primary Care Unavailable Madison, Monie Gastelum Attending Unavailable Monei Wallace Admitting Unavailable Mcmahon, Gypsy E Primary Care Unavailable Tupa, Marvin Yancey Admitting Unavailable Marvin Garcia Attending Unavailable Lisandro, Gypsy E Primary Care Unavailable Hunter Brown Admitting Unavailjhonatan e Hunter Brown Attending Unavailabl e Mcmahon, Gypsy E Primary Care Unavailable ROYAL, MOHAMED F Attending Unavailable MCMAHON, GYPSY E Referring Unavailable MCMAHON, GYPSY E Primary Care Unavailable DEBMALATHI RUBIO E Attending Unavailable DEB, MALATHI Olvera Attending Unavailable DEB, MALATHI E Referring Unavailable DEB, MALATHI E Admitting Unavailable DEB, MALATHI E Attending Unavailable DEB, MALATHI E Attending Unavailable ROYAL, MOHAMED F Attending Unavailable ROYAL, MOHAMED F Referring Unavailable MCMAHON, GYPSY E Primary Care Unavailable ROYAL, MOHAMED F Attending Unavailable ROYAL, MOHAMED F Referring Unavailable MCMAHON, GYPSY E Primary Care Unavailable ROAYL, MOHAMED F Referring Unavailable MCMAHON, GYPSY E Primary Care Unavailable MCMAHON, GYPSY E Referring Unavailable MCMAHON, GYPSY E Primary Care Unavailable Allergies Allergy Classification Reported Allergen(s) Allergy Type Date of Onset Reaction(s) Facility (20 sources) Promethazine; Translations: [promethazine] Drug Allergy 02-04-20 13 anaphylaxis, Anaphylaxis (disorder) [facility] (20 sources) histamines Drug allergy Unknown [facility] Other (10 sources) Histamine H2 Inhibitors; Translations: [Histamine H2 Inhibitors] Allergy to substance 07-16-19 13 Unknown Reaction [facility] (20 sources) levoFLOXacin; Translations: [levofloxacin] Drug Allergy 07-01-19 23 Tremor (finding) [facility] (1 source) diphenhydrAMINE Drug Allergy 04-20-19 [facility] (1 source) ezetimibe Drug Allergy 04-20-19 [facility] (1 source) Gemfibrozil Drug Allergy 04-20-19 [facility] (2 sources) Levamisole; Translations: [Phenergan] Drug Allergy 07-16-19 13 [facility] (3 sources) NSAIDs; Translations: [NSAIDS (NON-STEROIDAL ANTI-INFLAMMATORY DRUG)] Drug allergy (disorder) 04-20-19 [facility] (1 source) Nasal Decongestant Drug allergy (disorder) 04-20-19 [facility] (1 source) Darvocet-N 100 Drug allergy (disorder) 04-20-19 20 [facility] (11 sources) diphenhydrAMINE; Translations: [diphenhydramine] Drug Allergy jumpy,, Unknown [facility] (14 sources) Penicillin; Translations: [penicillin] Drug Allergy Eruption of skin (disorder) [facility] (1 source) Histamine; Translations: [HISTAMINE] Drug Allergy 02-04-20 13 [facility] (6 sources) Penicillins; Translations: [Penicillins] Propensity to adverse reactions 02-25-19 Rash [facility] (2 sources) Antihistamines Allergy to substance 02-26-19 Unknown Reaction [facility] (1 source) Promethazine Drug Allergy 12-07-19 18 [facility] (2 sources) diphenhydrAMINE; Translations: [DIPHENHYDRAMINE HCL] Drug Allergy 10-14-19 [facility] (2 sources) ezetimibe; Translations: [EZETIMIBE] Drug Allergy 10-14-19 [facility] (2 sources) Gemfibrozil; Translations: [GEMFIBROZIL] Drug Allergy 10-14-19 [facility] (2 sources) ANTIHISTAMINE 12 HOUR; Translations: [ANTIHISTAMINE 12 HOUR] Propensity to adverse reactions to drug (disorder) 05-21-19 [facility] (2 sources) PROPOXYPHENE N-ACETAMINOPHEN; Translations: [PROPOXYPHENE N-ACETAMINOPHEN] Propensity to adverse reactions to drug (disorder) 10-14-19 [facility] Medications Current Medications Medication Drug Class(es) [...] capsule (2 sources) Start: 04-15-2023 lactobacillus acidophilus [id number] unt oral tablet (2 sources) take 1 [...] Ordered Start: 05-14-2022 take 1 capsule by [facility] every twelve hours Macrobid 100 MG 1 [...] # 2 cap(s), Refills(s) 0, Pharmacy: [facility]/pharmacy #[id number], 178, cm, 05/19/22 13:31:00 [...] Tromethamine Discontinued 1 PACKET PO Once 1 1 May 07, 2023 12:00am May 21, [...] 125 MG PO Four times daily 56 14 April 12, 2023 1:00am April 22, 2023 3:48pm Start: 01-26-2023 Vancomycin HCl 250 MG 1 capsule four times a day for 14 days, then 1 capsule twice a day for 14 days Orally as directed for 28 days PLEASE CHECK ALLERGIES Jan, Active Start: 01-26-2023 take 1 capsule by hi ut every twenty-four hours Vancomycin HCl 250 MG [...] abdominal pain] Episodic Chronic ulcer of skin (5 sources) Non-pressure chronic ulcer of other part [...] disease (20 sources) Atherosclerotic heart disease of [place] coronary artery without angina pectoris; Translations: [Coronary [...] [Essential (primary) hypertension] Onset: 01-15-2022 05-14-2022 Chronic Gangrene (1 source) Atherosclerosis of [place] arteries of extremities with gangrene, right leg; Translations: [Atherosclerosis of [place] arteries of extremities with gangrene, right leg] Onset: 10-25-2023 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) [...] 02-04-2022 Chronic Other aftercare (1 source) Other shelter (current) drug therapy; Translations: [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] Onset: 03-24-2022 Episodic Other aftercare (1 source) Encounter for therapeutic drug level monitoring; Translations: [Encounter for therapeutic drug level monitoring] Onset: 10-27-2023 Episodic Other connective tissue disease (1 source) [...] and visceral atherosclerosis (16 sources) Atherosclerosis of [place] arteries of right leg with ulceration of other part of lower leg; Translations: [Atherosclerosis of [place] arteries of left leg with ulceration of [...] infection, site not specified] Onset: 03-24-2022 Episodic Varicose veins of lower extremity (1 source) 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; Translations: [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] Onset: 10-14-2023 Episodic Viral infection (2 sources) COVID-19; Translations: [...] Episodic Other aftercare (1 source) 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; Translations: [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 ASSISTANT CURRENT USE OF ASPIRIN] Onset: 11-10-2021 Episodic Other diseases of veins and lymphatics (1 source) Venous insufficiency (chronic) (peripheral); Translations: [VENOUS INSUFF CHRONIC PERIPHERAL] Onset: 11-10-2021 Episodic Unclassified (7 sources) Finding of sensation of bladder 05-19-2022 Unclassified (1 source) CONTACT W/AND (SUSP) EXPOS COVID-19; Translations: [CONTACT W/AND (SUSP) EXPOS COVID-19] Onset: 08-12-2021 Results Test Name Value Interpretation Reference Range Facility BASIC METABOLIC PANLon 10-26 Anion gap [Moles/Vol] 11 mmol/L Normal 5-15 [facility] Comment on above: Performed By: #### P INR, 85352-4 #### [facility] ([id number]) [address] [place] [address] 54542 #### CBCA, BMP #### [facility] ([id number]) [address], [address] [place] [address] Calcium [Mass/Vol] 9.9 mg/dL Normal 8.5-10.5 [facility] Comment on above: Performed By: #### P INR, 36799-3 #### [facility] ([id number]) [address] [place] [address] 73205 #### CBCA, BMP #### [facility] ([id number]) [address], [address] [place] [address] Chloride [Moles/Vol] 103 mmol/L Normal 98-109 [facility] Comment on above: Performed By: #### P INR, 74418-3 #### [facility] ([id number]) [address] [place] [address] 81734 #### CBCA, BMP #### [facility] ([id number]) [address], [address] [place] [address] CO2 [Moles/Vol] 27 mmol/L Normal 22-32 [facility] Comment on above: Performed By: #### P INR, 15277-8 #### [facility] ([id number]) [address] [place] [address] 17180 #### CBCA, BMP #### [facility] ([id number]) [address], [address] [place] [address] Creatinine [Mass/Vol] 1.15 mg/dL High 0.40-1.00 [facility] Comment on above: Result Comment: METH OD TRACEABLE TO IDMS STANDARD Performed By: #### P INR, 46863-3 #### [facility] ([id number]) [address] [place] [address] 20270 #### CBCA, BMP #### [facility] ([id number]) [address], [address] [place] [address] GFR/1.73 sq M.predicted among non-blacks MDRD (S/P/Bld) [Vol rate/Area] 46 mL/min/{1.73_m2} Low >59 [facility] Comment on above: Result Comment: Reported eGFR is based on the CKD-EPI 2020 equation that does not use a race coefficient. Performed By: #### P INR, 73124-1 #### [facility] ([id number]) [address] [place] [address] 70791 #### CBCA, BMP #### [facility] ([id number]) [address], [address] [place] [address] Glucose [Mass/Vol] 70 mg/dL Normal 65-99 [facility] Comment on above: Performed By: #### P INR, 88369-8 #### [facility] ([id number]) [address] [place] [address] 78818 #### CBCA, BMP #### [facility] ([id number]) [address], [address] [place] [address] Potassium [Moles/Vol] 4.1 mmol/L Normal 3.5-5.0 [facility] Comment on above: Performed By: #### P INR, 20885-5 #### [facility] ([id number]) [address] [place] [address] 07760 #### CBCA, BMP #### [facility] ([id number]) [address], [address] [place] [address] Sodium [Moles/Vol] 141 mmol/L Normal 134-146 [facility] Comment on above: Performed By: #### P INR, 94925-5 #### [facility] ([id number]) [address] [place] [address] 73923 #### CBCA, BMP #### [facility] ([id number]) [address] [place] [address] Urea nitrogen [Mass/Vol] 24 mg/dL Normal 5-27 [facility] Comment on above: Performed By: #### P INR, 69573-9 #### [facility] ([id number]) [address] [place] [address] 82844 #### CBCA, BMP #### [facility] ([id number]) [address], [address] [place] [address] CBC AND AUTO DIFFon 10-27-19 24 ABSOLUTE BASOPHIL 0.0 X10E9/L Normal 0.0-0.2 [facility] Comment on above: Performed By: #### P INR, 56085-8 #### [facility] ([id number]) [address] [place] [address] 78942 #### CBCA, BMP #### [facility] ([id number]) [address], [address] [place] [address] ABSOLUTE NEUTROPHIL 5.5 X10E9/L Normal 1.5-6.6 [facility] Comment on above: Performed By: #### P INR, 78340-3 #### [facility] ([id number]) [address] [place] [address] 40836 #### CBCA, BMP #### [facility] ([id number]) [address] [place] [address] Basophils/100 WBC (Bld) 0.4 % Normal [facility] Comment on above: Performed By: #### P INR, 87525-6 #### [facility] ([id number]) [address] [place] [address] 02872 #### CBCA, BMP #### [facility] ([id number]) [address], [address] [place] [address] Eosinophils (Bld) [#/Vol] 0.0 10*3/uL Normal 0.0-0.4 [facility] Comment on above: Performed By: #### P INR, 54034-2 #### [facility] ([id number]) [address] [place] [address] 47442 #### CBCA, BMP #### [facility] ([id number]) [address], [address] [place] [address] Eosinophils/100 WBC (Bld) 0.6 % Normal [facility] Comment on above: Performed By: #### P INR, 86252-9 #### [facility] ([id number]) [address] [place] [address] 30787 #### CBCA, BMP #### [facility] ([id number]) [address] [place] [address] Erythrocyte distribution width (RBC) [Ratio] 14.7 % Normal 11.5-15.0 [facility] Comment on above: Performed By: #### P INR, 69937-9 #### [facility] ([id number]) [address] [place] [address] 95666 #### CBCA, BMP #### [facility] ([id number]) [address] [facility] [place] [address] Hematocrit (Bld) [Volume fraction] 35.1 % Normal 35-47 [facility] Comment on above: Performed By: #### P INR, 97581-3 #### [facility] ([id number]) [address] [place] [address] 18803 #### CBCA, BMP #### [facility] ([id number]) [address] [facility] [place] [address] Hemoglobin (Bld) [Mass/Vol] 11.7 g/dL Normal 11.7-15.5 [facility] Comment on above: Performed By: #### P INR, 29054-0 #### [facility] ([id number]) [address] [place] [address] 37296 #### CBCA, BMP #### [facility] ([id number]) [address] [place] [address] Lymphocytes (Bld) [#/Vol] 1.1 10*3/uL Normal 1.0-3.5 [facility] Comment on above: Performed By: #### P INR, 34163-1 #### [facility] ([id number]) [address] [place] [address] 43475 #### CBCA, BMP #### [facility] ([id number]) [address] [place] [address] Lymphocytes/100 WBC (Bld) 14.7 % Normal [facility] Comment on above: Performed By: #### P INR, 62874-3 #### [facility] ([id number]) [address] [place] [address] 56263 #### CBCA, BMP #### [facility] ([id number]) [address] [facility] [place] [address] MCH (RBC) [Entitic mass] 32.5 pg Normal 27-34 [facility] Comment on above: Performed By: #### P INR, 04082-2 #### [facility] ([id number]) [address] [place] [address] 20495 #### CBCA, BMP #### [facility] ([id number]) [address] [facility] [place] [address] MCHC (RBC) [Mass/Vol] 33.3 g/dL Normal 32-36 [facility] Comment on above: Performed By: #### P INR, 67303-4 #### [facility] ([id number]) [address] [place] [address] 15320 #### CBCA, BMP #### [facility] ([id number]) [address] [facility] [place] [address] MCV (RBC) [Entitic vol] 98 fL Normal 80-100 [facility] Comment on above: Performed By: #### P INR, 54136-7 #### [facility] ([id number]) [address] [place] [address] 55306 #### CBCA, BMP #### [facility] ([id number]) [address], [address] [place] [address] Monocytes (Bld) [#/Vol] 1.1 10*3/uL High 0-0.9 [facility] Comment on above: Performed By: #### P INR, 97479-8 #### [facility] ([id number]) [address] [place] [address] 40155 #### CBCA, BMP #### [facility] ([id number]) [address] [place] [address] Monocytes/100 WBC (Bld) 13.8 % Normal [facility] Comment on above: Performed By: #### P INR, 95129-9 #### [facility] ([id number]) [address] [place] [address] 68937 #### CBCA, BMP #### [facility] ([id number]) [address] [place] [address] Neutrophils/100 WBC (Bld) 70.5 % Normal [facility] Comment on above: Performed By: #### P INR, 86536-6 #### [facility] ([id number]) [address] [place] [address] 33264 #### CBCA, BMP #### [facility] ([id number]) [address] [place] [address] Platelet mean volume (Bld) [Entitic vol] 7.6 fL Normal 7-12 [facility] Comment on above: Performed By: #### P INR, 46684-0 #### [facility] ([id number]) [address] [place] [address] 10769 #### CBCA, BMP #### [facility] ([id number]) [address] [place] [address] Platelets (Bld) [#/Vol] 321 10*3/uL Normal 150-450 [facility] Comment on above: Performed By: #### P INR, 68054-7 #### [facility] ([id number]) [address] [place] [address] 93206 #### CBCA, BMP #### [facility] ([id number]) [address] [facility] [place] [address] RBC COUNT 3.59 X10E12/L Low 3.80-5.20 [facility] Comment on above: Performed By: #### P INR, 88000-3 #### [facility] ([id number]) [address] [place] [address] 64537 #### CBCA, BMP #### [facility] ([id number]) [address] [facility] [place] [address] WBC (Bld) [#/Vol] 7.8 10*3/uL Normal 4.0-11.0 [facility] Comment on above: Performed By: #### P INR, 20089-7 #### [facility] ([id number]) [address] [place] [address] 05905 #### CBCA, BMP #### [facility] ([id number]) [address] [facility] [place] [address] PROTIME AND INRon 10-27-2023 INR Coag (PPP) [Relative time] 1.1 {INR} Normal 0.8-1.1 [facility] Comment on above: Performed By: #### P INR, 09078-1 #### [facility] ([id number]) [address] [place] [address] 07476 #### CBCA, BMP #### [facility] ([id number]) [address] [facility] [place] [address] PT Coag (PPP) [Time] 12.3 s Normal 9.8-13.2 [facility] Comment on above: Result Comment: NEW REFERENCE RANGE Performed By: #### P INR, 56374-4 #### [facility] ([id number]) [address] [place] [address] #### CBCA, BMP #### [facility] ([id number]) [address] [facility], [address] [place] [address] aPTT Coag (PPP) [Time]on aPTT Coag (Bld) [Time] 36 s Normal 26-37 [facility] Comment on above: Result Comment: NEW REFERENCE RANGE Performed By: #### P INR, 44139-0 #### [facility] ([id number]) [address] [place] [address] 90937 #### CBCA, BMP #### [facility] ([id number]) [address] [facility] [address] [place] [address] Lab Reportson 07-27-2023 Lab Reports [id number] Normal [facility] Lab Reports [id number] Normal [facility] Blood Urea Nitrogenon 2023 Urea nitrogen [Mass/Vol] 16 mg/dL Normal 7-25 [facility] Comment on above: Order Comment: STAT FOR CT Performed By: #### B UN, CREAT #### [facility] [address] abdomen pelvis w conon CT abdomen pelvis w [facility] [place] [address] [place] [address] CT Scan Report Signed Patient: Vincent Hsu MR#: [id number] 4 : 1935 Acct:[id number] Age/Sex: 87 / F ADM Date: 05/28/23 Loc: CT Room: Type: [facility] Attending Dr: Monie Wallace DO Copies to: [...] Yen Jr., D.ORylee05/28/2023 1:34 PM Dictation Location: [place] [address] Transcribed By: [facility] 05/28/23 1334 Dictated By: Jm Yen Jr, DO 05/28/23 1331 Signed By: 05/28/23 1334 Normal [facility] Creatinineon 05-28-2023 Creatinine [Mass/Vol] 1.07 mg/dL Normal 0.60-1.20 [facility] Comment on above: Order Comment: STAT FOR CT Performed By: #### B UN, CREAT #### [facility] [address] [place] [id number] [place] GFR/1.73 sq M.predicted MDRD (S/P/Bld) [Vol rate/Area] 50.587 mL/min/{1.73_m2} Normal [facility] Comment on above: Order Comment: STAT FOR CT Result Comment: PERF ORMED BY: [facility] [address] [place] [address] PATHOLOGIST TIRE CENTER MANAGER TIEN VELASQUEZ M.D. Performed By: #### B UN, CREAT #### [facility] [address] [place] [id number] [facility] Creatinine [Mass/volume] in Serum or PlasmaOrdered By: Monie Wallace on 05-28-2023 Creatinine [Mass/Vol] 1.07 mg/dL 0.60-1.20 [facility] No Panel InformationOrdered By: Monie Wallace on 05-28-2023 Estimated GFR (CKD-EPI) 50.587 mL/Min [facility] Creatinine Clearance (Chem N/A [facility] Urea nitrogen [Mass/volume] in Serum or PlasmaOrdered By: Monie Wallace on 05-28-2023 Urea nitrogen [Mass/Vol] 16 mg/dL 7-25 [facility] No Panel InformationOrdered By: Gypsy Mcmahon on 05-25-2023 E coli Shiga Toxin EIA [facility] Salmonella/Shigella Screen [facility] IgA [Mass/volume] in Serum o r Plasmaon 05-24-2023 IgA [Mass/Vol] 64 mg/dL 64-422 [facility] Comment on above: Performed at: [address] [id number] Director: Salomon Mcarthur PhD, Phone: [phone] No Panel Informationon 05-23 Endomysial IgA Antibody Negative Negative [facility] Serum gliadin peptide IgA an tibody assay (units/volume)on 05-24-2023 Gliadin peptide IgA Qn (S) 4 units 0-19 [facility] Comment on above: Negative 0 - 19 Weak Positive 20 - 30 Moderate to Strong Positive >30 Serum gliadin peptide IgG an tibody assay (units/volume)on 05-24-2023 Gliadin peptide IgG Qn (S) 2 units 0-19 [facility] Comment on above: Negative 0 - 19 Weak Positive 20 - 30 Moderate to Strong Positive >30 Serum tissue transglutaminas e (tTG) IgA antibody assay (units/volume)on 05-24-2023 tTG IgA Qn (S) <2 U/mL 0-3 [facility] [facility] Comment on above: Negative 0 - 3 Weak Positive 4 - 10 Positive >10 Tissue Transglutaminase (tTG) has been identified as the endomysial antigen. Studies have demonstr- ated that endomysial IgA antibodies have over 99% specificity for gluten sensitive enteropathy. Serum tissue transglutaminas e (tTG) IgG antibody assay (units/volume)on 05-24-2023 tTG IgG Qn (S) <2 U/mL 0-5 [facility] Comment on above: Negative 0 - 5 Weak Positive 6 - 9 Positive >9 Lab Reportson 05-10-2023 Lab Reports [id number]#1.00TIFF Normal [facility] Lab Reports [id number]#1.00TIFF Normal [facility] Lab Reports [id number]#1.00TIFF Normal [facility] Automated urine specific gra vity by refractometryon 05-06-2023 Specific gravity Refractometry automated (U) [Rel density] 1.025 1.005-1.02 5 [facility] Bilirubin Auto test strip (U ) [Mass/Vol]on 05-06-2023 Bilirubin (U) [Mass/Vol] Negative NEGATIVE [facility] Color Auto (U)on 05-06-2023 Color (U) YELLOW YELLOW [facility] Ketones Auto test strip (U) [Mass/Vol]on 05-06-2023 Ketones (U) [Mass/Vol] Negative NEGATIVE [facility] Lab Reportson 05-06-2023 Lab Reports [id number]#1.00TIFF Normal [facility] Laboratory - Microbiology an d Antimicrobial susceptibilityOrdered By: Gypsy Mcmahon on 05-06-2023 Bacteria identified Cx Nom (U) [facility] Protein Auto test strip (U) [Mass/Vol]on 05-06-2023 Protein (U) [Mass/Vol] Negative [facility] Specific gravity Auto test s trip (U) [Rel density]on 05-06-2023 Specific gravity (U) [Rel density] CLEAR CLEAR [facility] Urine glucose measurement by test strip (mass/volume)on 05-06-2023 Glucose Test strip (U) [Mass/Vol] Negative NEGATIVE [facility] Urine hemoglobin detection b y automated test stripon 05-06-2023 Hemoglobin Auto test strip Ql (U) TRACE-I NEGATIVE [facility] Urine nitrite detection by a utomated test stripon 05-06-2023 Nitrite Auto test strip Ql (U) SMALL NEGATIVE [facility] Nitrite Auto test strip Ql (U) Positive NEGATIVE [facility] Urobilinogen Auto test strip (U) [Mass/Vol]on 05-06-2023 Urobilinogen Qn (U) 0.2 {Gen'U}/dL 0.2-1.0 [facility] pH Auto test strip (U)on pH (U) 5.5 [pH] 5.0-9.0 [facility] No Panel Informationon 04-30 Clostridium difficile (PCR)(LAB) Negative NEGATIVE [facility] No Panel Informationon 04-06 Clostridium difficile (PCR)(LAB) Positive Negative [facility] Comment on above: Toxigenic C difficil e: PositiveEpidemic Strain Bl/NAP1/027: Presumptive NegativePerformed at: [facility] [id number] Director: Salomon Mcarthur PhD, Phone: [phone] IntraOperative Documentson 0 02-12-2023 IntraOperative Documents [id number]#1.00TIFF Normal [facility] Physician Orderon 02-12-2023 Physician Order [id number]#1.00TIFF Normal [facility] Physician Order [id number]#1.00TIFF Normal [facility] ED Note-Physicianon 02-05-20 ED Note-Physician [id number]#1.00TIFF Normal [facility] Lab Reportson 02-04-2023 Lab Reports [id number]#1.00TIFF Normal [facility] Lab Reports [id number]#1.00TIFF Normal [facility] Lab Reports [id number]#1.00TIFF [facility] Consent for Treatmenton 01-09 Consent for Treatment [id number]#1.00TIFF [facility] Retail - Clinical Noteon Retail - Clinical Note [id number]#1.00TIFF [facility] Lab Reportson 01-28-2023 Lab Reports [id number]#1.00TIFF Normal [facility] Physician Orderon 01-28-2023 Physician Order [id number]#1.00TIFF [facility] Urology Office/Clinic Noteon 01-27-2023 Urology Office/Clinic [...] Urnls Dip Stick Auto w/o Microscopy POC 80635 2. 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 Case discussed w GI, Dr Brown's [employer] Katie. he agrees w above plan. 3. [...] the risks of side effects etc. Orders: [id number] Measure Post Void residual urine and/or bladder capacity by US- non-imaging Total time spent reviewing previous notes/results/external documents, preparing the chart, conducting the encounter with the patient and family, ordering tests/medications, and documenting the encounter was 40 minutes. Follow-up With When Contact Information MALATHI VIEIRA PA-C, URL [address] [place] [address] [phone] Additional Instructions: f/u in [place] Patient Education Urinary Tract Infection, Adult, Evtf-ku-Oocd Documentation recorded by the scribe Caprice Stratton accurately reflects the services(s) I performed and decisions made by me. Authenticated by Malathi Vieira PA-C on 01/27/2023 13:56:47. I, Caprice Stratton, personally scribed for Malathi Vieira PA-C on (more content not included)... Normal [facility] Comment on above: Result Comment: [...] Urnls Dip Stick Auto w/o Microscopy POC 28917 Your Care Team Attending Physician - MALATHI VIEIRA PA-C Primary Care Physician - GYPSY MCMAOHN MD This Is Your Medications List Contact [...] MALATHI VIEIRA PA-C Where: [facility] Patient Educationon 01-27-20 Patient Education Obstetrics and [...] these instructions at home: Medicines ? Take pvle-mqm-xsnbmvi and prescription medicines only as told by [...] Reviewed: 09/06/2020 Else[employer] Patient Education ? 2022 [employer] [facility] Lab Reportson 01-25-2023 Lab Reports [id number]#1.00TIFF [facility] Lab Reports [id number]#1.00TIFF [facility] Lab Reports [id number]#1.00TIFF [facility] Lab Reportson 12-03-2022 Lab Reports [id number]#1.00TIFF [facility] Physician Orderon 12-01-2022 Physician Order [id number]#1.00TIFF [facility] Office Visiton 11-11-2022 Follow-up visit [id number] Vincent Hsu Jean Carlos 1935 F Date Provider Department [place] 11/11/2022 JAKE PAK [facility] Family History Problem Relation Age of Onset Aneurysm Mother Heart attack Father Family Status - Relation Status Age at Mother Father Level of Service:48217 [place] OFFICE/OUTPATIENT ESTABLISHED LOW MDM 20-29 MIN Normal [facility] Lab Reportson 09-25-2022 Lab Reports [id number]#1.00CD:12 7 [facility] Lab Reports [id number]#1.00CD:12 7 [facility] Physician Orderon 09-23-2022 Physician Order [id number]#1.00CD:12 7 [facility] [place] 09-23-2022 Screens [id number]#1.00CD:12 7 [facility] Ambulatory Visit Summaryon 0 09-22-2022 Ambulatory [...] MALATHI VIEIRA PA-C Where: [facility] Patient Educationon 09-23-19 23 Patient Education Obstetrics [...] these instructions at home: Medicines ? Take fiow-gbz-vtapljm and prescription medicines only as told by [...] provider. Document Revised: 09/06/2020 Document Reviewed: 09/06/2020 [employer] Patient Education ? 2022 [employer] [facility] Urology Office/Clinic Noteon 09-22-2022 Urology Office/Clinic [...] symptoms not resolved. C&S this morning at [facility] ( not finalized) UTI symptoms Memory [...] resolved per daughter. C&S this morning at [facility] (not finalized) - will call pt [...] having to send a U.Cx to [facility] so we can review the results. [...] When Contact Information MALATHI VIEIRA PA-C, URL [address] [place] [address] Additional Instructions: Patient Education Urinary Tract Infection, Adult, Hxya-gn-Zerv IJazlyn, personally scribed for Malathi Vieira PA-C [...] mg (more content not included)... Normal [facility] Comment on above: Result Comment: Elec tronically Signed By: MALATHI VIEIRA PA-C\.br\Date and Time Signed: 09/22/22 16:16 EDT\.br\Electronically Co-Signed By: Jazlyn Lucero\.br\Date and Time Co-Signed: 09/22/22 15:38 EDT Office Visiton 06-30-2022 Follow-up visit [id number] Vincent Hsu 1935 F Date Provider Department [facility] 06/30/2022 Kulwinder-JAKE BARRY [facility] Family History Problem Relation Age of Onset Aneurysm Mother Heart attack Father Family Status - Relation Status Age at Mother Father Level of Service:16357 [place] OFFICE/OUTPATIENT NEW MODERATE MDM 45-59 MINUTES Normal [facility] CT ABD/PELVIS WO CONon 05-27 CT [...] MI NUÑEZ Date: 2022-05-27 10:34 Normal [facility] CULTURE URINEon 05-14-2022 CULTURE URINE Culture [...] Trimethoprim/Sulfamethoxa zole <=20 S F Normal [facility] Comment on above: Performed By: #### U RCX #### [facility] [address] [place] [address] Dr. Anthony Bonilla UA RANDOMon 05-11-2022 Bilirubin Ql (U) Negative Normal NEGATIVE [facility] Comment on above: Performed By: #### U RCX #### [facility] [address] [place] [address] Dr. Anthony Bonilla Clarity (U) SL CLOUDY Abnormal CLEAR [facility] Comment on above: Performed By: #### U RCX #### [facility] [address] [place] [address] Dr. Anthony Bonilla Color (U) LT. YELLOW Normal YELLOW [facility] Comment on above: Performed By: #### U RCX #### [facility] [address] [place] [address] Dr. Anthony Bonilla Glucose Ql (U) Negative Normal NEGATIVE [facility] Comment on above: Performed By: #### U RCX #### [facility] [address] [place] [address] Dr. Anthony Bonilla Hemoglobin Ql (U) Negative Normal NEGATIVE [facility] Comment on above: Performed By: #### U RCX #### [facility] [address] [place] [address] Dr. Anthony Bonilla Ketones Ql (U) Negative Normal NEGATIVE [facility] Comment on above: Performed By: #### U RCX #### [facility] [address] [place] [address] Dr. Anthony Bonilla LEUKOCYTES MODERATE Abnormal NEGATIVE [facility] Comment on above: Performed By: #### U RCX #### [facility] [address] [place] [address] Dr. Anthony Bonilla Nitrite Ql (U) Negative Normal NEGATIVE [facility] Comment on above: Performed By: #### U RCX #### [facility] [address] [place] [address] Dr. Anthony Bonilla pH (U) 5.5 [pH] Normal 5-9 [facility] Comment on above: Performed By: #### U RCX #### [facility] [address] [place] [address] Dr. Anthony Bonilla SPEC GRAVITY 1.020 Normal 1.005-<=1. 025 [facility] Comment on above: Performed By: #### U RCX #### [facility] [address] [place] [address] Dr. Anthony Bonilla UA PROTEIN Negative Normal NEGATIVE/ TRACE [facility] Comment on above: Performed By: #### U RCX #### [facility] [address] [place] [address] Dr. Anthony Bonilla Urobilinogen Qn (U) 0.2 {Gen'U}/dL Normal 0.2 - 1. 0 [facility] Comment on above: Performed By: #### U RCX #### [facility] [address] [place] [address] Dr. Anthony Bonilla CULTURE URINEon 03-24-2023 CULTURE URINE Isolate 1 Klebsiella pneumoniae >100,000 [...] F Trimethoprim/Sulfamethoxa zole <=20 S F Normal [facility] Comment on above: Performed By: #### U RCX #### [facility] [address] [place] [address] Dr. Anthony oBnilla CULTURE URINEon 04-16-2022 CULTURE URINE Isolate 1 [...] R F Nitrofurantoin 64 I F Normal [facility] Comment on above: Performed By: #### U RCX #### [facility] [address] [place] [address] Dr. Anthony Bonilla UA RANDOMon 04-14-2022 Bilirubin Ql (U) Negative Normal NEGATIVE [facility] Comment on above: Performed By: #### U RCX #### [facility] [address] [place] [address] Dr. Anthony Bonilla Clarity (U) CLEAR Normal CLEAR [facility] Comment on above: Performed By: #### U RCX #### [facility] [address] [address] [address] Anthony Bonilla Color (U) LT. YELLOW Normal YELLOW [facility] Comment on above: Performed By: #### U RCX #### [facility] [address] [place] [address] Dr. Anthony Bonilla Glucose Ql (U) Negative Normal NEGATIVE [facility] Comment on above: Performed By: #### U RCX #### [facility] [address] [place] [address] Dr. Anthony Bonilla Hemoglobin Ql (U) Negative Normal NEGATIVE [facility] Comment on above: Performed By: #### U RCX #### [facility] [address] [place] [address] Dr. Anthony Bonilla Ketones Ql (U) Negative Normal NEGATIVE [facility] Comment on above: Performed By: #### U RCX #### [facility] [address] [place] [address] Dr. Anthony Bonilla LEUKOCYTES MODERATE Abnormal NEGATIVE [facility] Comment on above: Performed By: #### U RCX #### [facility] [address] [place] [address] Dr. Anthony Bonilla Nitrite Ql (U) Negative Normal NEGATIVE [facility] Comment on above: Performed By: #### U RCX #### [facility] [address] [place] [address] Dr. Anthony Bonilla pH (U) 5.5 [pH] Normal 5-9 [facility] Comment on above: Performed By: #### U RCX #### [facility] [address] [place] [address] Dr. Anthony Bonilla SPEC GRAVITY 1.020 Normal 1.005-<=1. 025 [facility] Comment on above: Performed By: #### U RCX #### [facility] [address] [address] [address] Anthony Bonilla UA PROTEIN Negative Normal NEGATIVE/ TRACE [facility] Comment on above: Performed By: #### U RCX #### [facility] [address] [address] [address] Anthony Bonilla Urobilinogen Qn (U) 0.2 {Gen'U}/dL Normal 0.2 - 1. 0 [facility] Comment on above: Performed By: #### U RCX #### [facility] [address] [place] [address] Dr. Anthony Bonilla Urinalysis - DIPSTICKon 03-12 Appearance (U) clear [employer] Other Bilirubin Ql (U) [employer] Other Color (U) dark yellow [facility] Other Glucose Ql (U) Negative [facility] [employer] [facility] Other Hemoglobin Ql (U) Negative [facility] Other Ketones Ql (U) trace [employer] Other Leukocyte esterase Test strip Ql (U) [employer] Other Nitrite Ql (U) Negative [facility] [employer] [facility] Other pH (U) 5.0 [pH] [facility] Other Protein Ql (U) Negative [employer] [facility] Other Specific gravity (U) [Rel density] 1.015 [facility] Other Urobilinogen (U) [Mass/Vol] 0.2 mg/dL [facility] Other Urinalysis - DIPSTICK [employer] Other Urine Cultureon 03-30-2022 Urine Culture 10,000 [employer] [facility] [employer] Other Bacteria identified Cx Nom (U) [facility] Other CULTURE URINEon 03-23-2022 CULTURE URINE Isolate 1 Pseudomonas aeruginosa >100,000 cfu/mL of ORGANISM 1 Pseudomonas aeruginosa ANTIBIOTIC M.I.C RX STATUS Piperacillin/Tazobactam 8 S F Ceftazidime 4 S F Imipenem 1 S F Amikacin <=2 S F Gentamicin <=1 S F Tobramycin <=1 S F Ciprofloxacin <=0.25 S F Levofloxacin 0.5 S F Normal [facility] Comment on above: Performed By: #### U RCX #### [facility] [address] [place] [address] Dr. Anthony Bonilla CARDIAC DARWIN ADMITon 023 CK [Catalytic activity/Vol] 137 U/L Normal 26-192 [facility] Comment on above: Performed By: #### U RCX #### [facility] [address] [place] [address] Dr. Anthony Bonilla CK.MB [Mass/Vol] 1.05 ng/mL Normal <=3.60 [facility] Comment on above: Performed By: #### U RCX #### [facility] [address] [place] [address] Dr. Anthony Bonilla HSTROP 17.6 pg/mL Normal 4.0-51.3 [facility] Comment on above: Result Comment: CUT- OFF POINTS HAVE BEEN ESTABLISHED BASED ON THE FOURTH UNIVERSAL DEFINITIONS OF MYOCARDIAL INFARCTION. THE UPPER REFERENCE LIMIT (URL) OF TROPONIN, DEFINED THE 99TH PERCENTILE OF cTnI DISTRIBUTION IN A REFERENCE POPULATION, HAS BEEN CONFIRMED THE DECISION THRESHOLD FOR CA DIAGNOSIS. Performed By: #### U RCX #### [facility] [address] [place] [address] Dr. Anthony Bonilla CANDIDA 72 ng/mL Normal 9-82 [facility] Comment on above: Performed By: #### U RCX #### [facility] [address] [place] [address] Dr. Anthony Bonilla CBC AUTO DIFFon 03-20-2022 BASO # 0.0 103/ul Normal 0.0-0.1 [facility] Comment on above: Performed By: #### C BC #### [facility] [address] [place] [address] Dr. Anthony Bonilla Basophils/100 WBC (Bld) 0.3 % Normal 0.2-2.0 [facility] Comment on above: Performed By: #### C BC #### [facility] [address] [place] [address] Dr. Anthony Bonilla EO # 0.0 103/ul Normal 0.0-0.7 [facility] Comment on above: Performed By: #### C BC #### [facility] [address] [place] [address] Dr. Anthony Bonilla Eosinophils/100 WBC (Bld) 0.1 % Critically low 0.9-7.0 [facility] Comment on above: Performed By: #### C BC #### [facility] [address] [place] [address] Dr. Anthony Bonilla Erythrocyte distribution width (RBC) [Ratio] 15.9 % Critically high 11.0-15.0 [facility] Comment on above: Performed By: #### C BC #### [facility] [address] [place] [address] Dr. Anthony Bonilla Hematocrit (Bld) [Volume fraction] 33.6 % Critically low 36.0-48.0 [facility] Comment on above: Performed By: #### C BC #### [facility] [address] [place] [address] Dr. Anthony Bonilla Hemoglobin (Bld) [Mass/Vol] 11.2 g/dL Critically low 12.0-16.0 [facility] Comment on above: Performed By: #### C BC #### [facility] [address] [place] [address] Dr. Anthony Bonilla IG # 0.04 10e3/ul Critically high 0.00-0.03 [facility] Comment on above: Performed By: #### C BC #### [facility] [address] [place] [address] Dr. Anthony Bonilla IG % 0.3 % Normal 0.0-0.5 [facility] Comment on above: Performed By: #### C BC #### [facility] [address] [place] [address] Dr. Anthony Bonilla LYMPH # 0.8 103/ul Critically low 1.2-3.8 [facility] Comment on above: Performed By: #### C BC #### [facility] [address] [place] [address] Dr. Anthony Bonilla Lymphocytes/100 WBC (Bld) 6.4 % Critically low 20.5-60.0 [facility] Comment on above: Performed By: #### C BC #### [facility] [address] [place] [address] Dr. Anthony Bonilla MANUAL DIFF REQ NO Normal [facility] Comment on above: Performed By: #### C BC #### [facility] [address] [place] [address] Dr. Anthony Bonilla MCH (RBC) [Entitic mass] 28.9 pg Normal 26.7-34.0 [facility] Comment on above: Performed By: #### C BC #### [facility] [address] [place] [address] Dr. Anthony Bonilla MCHC (RBC) [Mass/Vol] 33.3 g/dL Normal 29.9-35.2 [facility] Comment on above: Performed By: #### C BC #### [facility] [address] [place] [address] Dr. Anthony Bonilla MCV (RBC) [Entitic vol] 86.8 fL Normal 81.0-99.0 [facility] Comment on above: Performed By: #### C BC #### [facility] [address] [place] [address] Dr. Anthony Bonilla MONO # 1.1 103/ul Critically high 0.3-0.8 [facility] Comment on above: Performed By: #### C BC #### [facility] [address] [place] [address] Dr. Anthony Bonilla Monocytes/100 WBC (Bld) 8.3 % Normal 1.7-12.0 [facility] Comment on above: Performed By: #### C BC #### [facility] [address] [place] [address] Dr. Anthony Bonilla NEUT # 11.2 103/ul Critically high 1.4-6.5 [facility] Comment on above: Performed By: #### C BC #### [facility] [address] [place] [address] Dr. Anthony Bonilla Neutrophils/100 WBC (Bld) 84.6 % Critically high 43.0-75.0 [facility] Comment on above: Performed By: #### C BC #### [facility] [address] [place] [address] Dr. Anthony Bonilla Platelet mean volume (Bld) [Entitic vol] 9.7 fL Normal 9.5-13.5 [facility] Comment on above: Performed By: #### C BC #### [facility] [address] [place] [address] Dr. Anthony Bonilla PLT 274 103/ul Normal 150-450 [facility] Comment on above: Performed By: #### C BC #### [facility] [address] [place] [address] Dr. Anthony Bonilla RBC 3.87 106/ul Critically low 4.20-5.40 [facility] Comment on above: Performed By: #### C BC #### [facility] [address] [place] [address] Dr. Anthony Bonilla WBC 13.2 103/ul Critically high 4.0-11.0 [facility] Comment on above: Performed By: #### C BC #### [facility] [address] [place] [address] HEAD WO CONon [...] by: CLAU SHAH Date: 2022-03-20 20:30 Normal [facility] URINE PROFILEon 3 Bilirubin Ql (U) Negative Normal NEGATIVE [facility] Comment on above: Performed By: #### C BC #### [facility] [address] [place] [address] Dr. Anthony Bonilla Clarity (U) CLEAR Normal CLEAR [facility] Comment on above: Performed By: #### C BC #### [facility] [address] [place] [address] Dr. Anthony Bonilla Color (U) LT. YELLOW Normal YELLOW [facility] Comment on above: Performed By: #### C BC #### [facility] [address] [place] [address] Dr. Anthony Bonilla ERUCARMINA A micrscopic examina tion will be performed if indicated. Normal [facility] Comment on above: Performed By: #### C BC #### [facility] [address] [place] [address] Dr. Anthony Bonilla Glucose Ql (U) Negative Normal NEGATIVE [facility] Comment on above: Performed By: #### C BC #### [facility] [address] [place] [address] Dr. Anthony Bonilla Hemoglobin Ql (U) LARGE Abnormal NEGATIVE [facility] Comment on above: Performed By: #### C BC #### [facility] [address] [place] [address] Dr. Anthony Bonilla Ketones Ql (U) Negative Normal NEGATIVE [facility] Comment on above: Performed By: #### C BC #### [facility] [address] [place] [address] Dr. Anthony Bonilla LEUKOCYTES SMALL Abnormal NEGATIVE [facility] Comment on above: Performed By: #### C BC #### [facility] [address] [place] [address] Dr. Anthony Bonilla Nitrite Ql (U) Positive Abnormal NEGATIVE [facility] Comment on above: Performed By: #### C BC #### [facility] [address] [place] [address] Dr. Anthony Bonilla pH (U) 7.0 [pH] Normal 5-9 [facility] Comment on above: Performed By: #### C BC #### [facility] [address] [place] [address] Dr. Anthony Bonilla Protein (U) [Mass/Vol] 30 mg/dL Abnormal NEGAT JAMAR/ TRACE [facility] Comment on above: Performed By: #### C BC #### [facility] [address] [place] [address] Dr. Anthony Bonilla SPEC GRAVITY 1.015 Normal 1.005-<=1. 025 [facility] Comment on above: Performed By: #### C BC #### [facility] [address] [place] [address] Dr. Anthony Bonilla UR MICRO IND INDICATED Normal [facility] Comment on above: Performed By: #### C BC #### [facility] [address] [place] [address] Dr. Anthony Bonilla Urobilinogen Qn (U) 1.0 {Gen'U}/dL Normal 0.2 - 1. 0 [facility] Comment on above: Performed By: #### C BC #### [facility] [address] [address] [address] Anthony Bonilla PROF 14(COMP METB)on 023 Albumin [Mass/Vol] 3.4 g/dL Normal 3.4-5.0 [facility] Comment on above: Performed By: #### U RCX #### [facility] [address] [address] [address] Anthony Bonilla Albumin/Globulin [Mass ratio] 1.2 {ratio} Normal [facility] Comment on above: Performed By: #### U RCX #### [facility] [address] [address] [address] Anthony Bonilla ALP [Catalytic activity/Vol] 26 U/L Critically low 46-116 [facility] Comment on above: Performed By: #### U RCX #### [facility] [address] [address] [address] Anthony Bonilla ALT [Catalytic activity/Vol] 21 U/L Normal 14-59 [facility] Comment on above: Performed By: #### U RCX #### [facility] [address] [address] [address] Anthony Bonilla Anion gap [Moles/Vol] 13.7 mmol/L Normal [facility] Comment on above: Performed By: #### U RCX #### [facility] [address] [address] [address] Anthony Bonilla AST [Catalytic activity/Vol] 20 U/L Normal 15-37 [facility] Comment on above: Performed By: #### U RCX #### [facility] [address] [address] [address] Anthony Bonilla Bilirubin [Mass/Vol] 1.2 mg/dL Critically high 0.2-1.0 [facility] Comment on above: Performed By: #### U RCX #### [facility] [address] [address] [address] Anthony Bonilla Calcium [Mass/Vol] 9.4 mg/dL Normal 8.5-10.1 [facility] Comment on above: Performed By: #### U RCX #### [facility] [address] [address] [address] Anthony Bonilla Chloride [Moles/Vol] 99 mmol/L Normal 98-107 [facility] Comment on above: Performed By: #### U RCX #### [facility] [address] [address] [address] Anthony Bonilla CO2 [Moles/Vol] 29.1 mmol/L Normal 21.0-32.0 [facility] Comment on above: Performed By: #### U RCX #### [facility] [address] [address] [address] Anthony Bonilla Creatinine [Mass/Vol] 1.02 mg/dL Normal 0.55-1.02 [facility] Comment on above: Performed By: #### U RCX #### [facility] [address] [address] [address] Anthony Bonilla EGFR-AF THAI >60 Normal >=60 [facility] Comment on above: Performed By: #### U RCX #### [facility] [address] [address] [address] Anthony Bonilla EGFR-NON AF THAI 52 mL/min/1.73m2 Critically low >=60 [facility] Comment on above: Performed By: #### U RCX #### [facility] [address] [address] [address] Anthony Bonilla Globulin (S) [Mass/Vol] 2.9 g/dL Normal [facility] Comment on above: Performed By: #### U RCX #### [facility] [address] [address] [address] Anthony Bonilla Glucose [Mass/Vol] 98 mg/dL Normal 74-106 [facility] Comment on above: Performed By: #### U RCX #### [facility] [address] [address] [address] Anthony Bonilla Potassium [Moles/Vol] 3.8 mmol/L Normal 3.5-5.1 [facility] Comment on above: Performed By: #### U RCX #### [facility] [address] [address] [address] Anthony Bonilla Protein [Mass/Vol] 6.3 g/dL Critically low 6.4-8.2 [facility] Comment on above: Performed By: #### U RCX #### [facility] [address] [address] [address] Anthony Bonilla Sodium [Moles/Vol] 138 mmol/L Normal 136-145 [facility] Comment on above: Performed By: #### U RCX #### [facility] [address] [address] [address] Anthony Bonilla Urea nitrogen [Mass/Vol] 16.0 mg/dL Normal 7.0-18.0 [facility] Comment on above: Performed By: #### U RCX #### [facility] [address] [place] [address] Dr. Anthony Bonilla Urea nitrogen/Creatinine [Mass ratio] 15.7 mg/mg Normal [facility] Comment on above: Performed By: #### U RCX #### [facility] [address] [place] [address] Dr. Anthony Bonilla URINE MICROSCOPIC ONLYon BACTERIA LARGE Abnormal NONE SEEN [facility] Comment on above: Performed By: #### C BC #### [facility] [address] [place] [address] Dr. Anthony Bonilla Bacteria identified Cx Nom (U) INDICATED Normal [facility] Comment on above: Performed By: #### C BC #### [facility] [address] [place] [address] Dr. Anthony Bonilla CAST NONE SEEN Normal NONE SEEN [facility] Comment on above: Performed By: #### C BC #### [facility] [address] [place] [address] Dr. Anthony Bonilla Crystals LM Nom (Urine sed) NONE SEEN Normal NONE SEEN [facility] Comment on above: Performed By: #### C BC #### [facility] [address] [place] [address] Dr. Anthony Bonilla Epithelial cells LM Ql (Urine sed) FEW Abnormal NONE SEEN /RARE [facility] Comment on above: Performed By: #### C BC #### [facility] [address] [address] [address] Anthony Bonilla MUCOUS NONE SEEN Normal NONE SEEN [facility] Comment on above: Performed By: #### C BC #### [facility] [address] [place] [address] Dr. Anthony Bonilla RBC 10-20 Abnormal 0-2 [facility] Comment on above: Performed By: #### C BC #### [facility] [address] [place] [address] Dr. Anthony Bonilla WBC 50-75 Abnormal NONE SEEN [facility] Comment on above: Performed By: #### C BC #### [facility] [address] [place] [address] Dr. Anthony Bonilla CALPROTECTIN, FECALon 2022 Calprotectin, Fecal 416 ug/g Critically high 0-120 [facility] Comment on above: Result Comment: Conc entration Interpretation Follow-Up <16 - 50 ug/g Normal None >50 -120 ug/g Borderline Re-evaluate in 4-6 weeks >120 ug/g Abnormal Repeat as clinically indicated Performed By: #### U RCX #### [facility] [address] [place] [address] Dr. Anthony Bonilla QUANTIFERON TB GOLD PLUSon 0 02-19-2022 QuantiFERON Criteria Comment Normal [facility] Comment on above: Result Comment: Butch tiFERON-TB [...] test. Performed By: #### U RCX #### [facility] [address] [place] [address] Dr. Anthony Bonilla QuantiFERON Incubation Incubation performed. Normal [facility] Comment on above: Performed By: #### U RCX #### [facility] [address] [place] [address] Dr. Anthony Bonilla QuantiFERON Mitogen Value >10.00 Normal [facility] Comment on above: Performed By: #### U RCX #### [facility] [address] [place] [address] Dr. Anthony Bonilla QuantiFERON Nil Value 0.07 IU/mL Normal [facility] Comment on above: Performed By: #### U RCX #### [facility] [address] [place] [address] Dr. Anthony Bonilla QuantiFERON TB1 Ag Value 0.08 IU/mL Normal [facility] Comment on above: Performed By: #### U RCX #### [facility] [address] [place] [address] Dr. Anthony Bonilla QuantiFERON TB2 Ag Value 0.07 IU/mL Normal [facility] Comment on above: Performed By: #### U RCX #### [facility] [address] [place] [address] Dr. Anthony Bonilla QuantiFERON-TB Gold Plus Negative Normal Negative [facility] Comment on above: Result Comment: No r esponse to M tuberculosis antigens detected. Infection with M tuberculosis is unlikely, but high risk individuals should be considered for additional testing (ATS/IDSA/CDC Clinical Practice Guidelines, 2017). The reference range is an Antigen minus Nil result of <0.35 IU/mL. Chemiluminescence immunoassay methodology Performed By: #### U RCX #### [facility] [address] [place] [address] Dr. Anthony Bonilla HEP B SURFACE ANTIGEN SCREEN on 02-18-2022 HBsAg Screen Negative Normal Negative [facility] Comment on above: Performed By: #### U RCX #### [facility] [address] [place] [address] Dr. Anthony Bonilla HEPATITIS B CORE, IgMon 02-08 Hep B Core Ab, IgM Negative Normal Negative [facility] Comment on above: Performed By: #### U RCX #### [facility] [address] [place] [address] Dr. Anthony Bonilla HEPATITIS B SURFACE ANTIBODY , QUANTon 01-11-2023 Hepatitis B Surf AB Quant <3.1 Critically low Immunity>9 .9 [facility] Comment on above: Result Comment: Stat us of Immunity Anti-HBs Level Inconsistent with Immunity 0.0 - 9.9 Consistent with Immunity >9.9 Performed By: #### C BC #### [facility] [address] [place] [address] Dr. Anthony Bonilla CBC AUTO DIFFon 02-17-2022 BASO # 0.0 103/ul Normal 0.0-0.1 [facility] Comment on above: Performed By: #### U RCX #### [facility] [address] [place] [address] Dr. Anthony Bonilla Basophils/100 WBC (Bld) 0.4 % Normal 0.2-2.0 [facility] Comment on above: Performed By: #### U RCX #### [facility] [address] [place] [address] Dr. Anthony Bonilla EO # 0.0 103/ul Normal 0.0-0.7 [facility] Comment on above: Performed By: #### U RCX #### [facility] [address] [place] [address] Dr. Anthony Bonilla Eosinophils/100 WBC (Bld) 0.5 % Critically low 0.9-7.0 [facility] Comment on above: Performed By: #### U RCX #### [facility] [address] [place] [address] Dr. Anthony Bonilla Erythrocyte distribution width (RBC) [Ratio] 14.7 % Normal 11.0-15.0 [facility] Comment on above: Performed By: #### U RCX #### [facility] [address] [place] [address] Dr. Anthony Bonilla Hematocrit (Bld) [Volume fraction] 33.2 % Critically low 36.0-48.0 [facility] Comment on above: Performed By: #### U RCX #### [facility] [address] [place] [address] Dr. Anthony Bonilla Hemoglobin (Bld) [Mass/Vol] 11.0 g/dL Critically low 12.0-16.0 [facility] Comment on above: Performed By: #### U RCX #### [facility] [address] [place] [address] Dr. Anthony Bonilla IG # 0.02 10e3/ul Normal 0.00-0.03 [facility] Comment on above: Performed By: #### U RCX #### [facility] [address] [place] [address] Dr. Anthony Bonilla IG % 0.2 % Normal 0.0-0.5 [facility] Comment on above: Performed By: #### U RCX #### [facility] [address] [place] [address] Dr. Anthony Bonilla LYMPH # 1.3 103/ul Normal 1.2-3.8 [facility] Comment on above: Performed By: #### U RCX #### [facility] [address] [place] [address] Dr. Anthony Bonilla Lymphocytes/100 WBC (Bld) 14.8 % Critically low 20.5-60.0 [facility] Comment on above: Performed By: #### U RCX #### [facility] [address] [place] [address] Dr. Anthony Bonilla MANUAL DIFF REQ NO Normal [facility] Comment on above: Performed By: #### U RCX #### [facility] [address] [place] [address] Dr. Anthony Bonilla MCH (RBC) [Entitic mass] 29.0 pg Normal 26.7-34.0 [facility] Comment on above: Performed By: #### U RCX #### [facility] [address] [place] [address] Dr. Anthony Bnoilla MCHC (RBC) [Mass/Vol] 33.1 g/dL Normal 29.9-35.2 [facility] Comment on above: Performed By: #### U RCX #### [facility] [address] [place] [address] Dr. Anthony Bonilla MCV (RBC) [Entitic vol] 87.6 fL Normal 81.0-99.0 [facility] Comment on above: Performed By: #### U RCX #### [facility] [address] [place] [address] Dr. Anthony Bonilla MONO # 0.8 103/ul Normal 0.3-0.8 [facility] Comment on above: Performed By: #### U RCX #### [facility] [address] [place] [address] Dr. Anthony Bonilla Monocytes/100 WBC (Bld) 9.6 % Normal 1.7-12.0 [facility] Comment on above: Performed By: #### U RCX #### [facility] [address] [place] [address] Dr. Anthony Bonilla NEUT # 6.3 103/ul Normal 1.4-6.5 [facility] Comment on above: Performed By: #### U RCX #### [facility] [address] [place] [address] Dr. Anthony Bonilla Neutrophils/100 WBC (Bld) 74.5 % Normal 43.0-75.0 [facility] Comment on above: Performed By: #### U RCX #### [facility] [address] [place] [address] Dr. Anthony Bonilla Platelet mean volume (Bld) [Entitic vol] 9.8 fL Normal 9.5-13.5 [facility] Comment on above: Performed By: #### U RCX #### [facility] [address] [place] [address] Dr. Anthony Bonilla PLT 318 103/ul Normal 150-450 [facility] Comment on above: Performed By: #### U RCX #### [facility] [address] [place] [address] Dr. Anthony Bonilla RBC 3.79 106/ul Critically low 4.20-5.40 [facility] Comment on above: Performed By: #### U RCX #### [facility] [address] [place] [address] Dr. Anthony Bonilla WBC 8.5 103/ul Normal 4.0-11.0 [facility] Comment on above: Performed By: #### U RCX #### [facility] [address] [place] [address] Dr. Anthony Bonilla PROF 14(COMP METB)on 023 Albumin [Mass/Vol] 3.6 g/dL Normal 3.4-5.0 [facility] Comment on above: Performed By: #### U RCX #### [facility] [address] [place] [address] Dr. Anthony Bonilla Albumin/Globulin [Mass ratio] 1.2 {ratio} Normal [facility] Comment on above: Performed By: #### U RCX #### [facility] [address] [place] [address] Dr. Anthony Bonilla ALP [Catalytic activity/Vol] 27 U/L Critically low 46-116 [facility] Comment on above: Performed By: #### U RCX #### [facility] [address] [place] [address] Dr. Anthony Bonilla ALT [Catalytic activity/Vol] 21 U/L Normal 14-59 [facility] Comment on above: Performed By: #### U RCX #### [facility] [address] [place] [address] Dr. Anthony Bonilla Anion gap [Moles/Vol] 13.5 mmol/L Normal [facility] Comment on above: Performed By: #### U RCX #### [facility] [address] [place] [address] Dr. Anthony Bonilla AST [Catalytic activity/Vol] 19 U/L Normal 15-37 [facility] Comment on above: Performed By: #### U RCX #### [facility] [address] [place] [address] Dr. Anthony Bonilla Bilirubin [Mass/Vol] 0.6 mg/dL Normal 0.2-1.0 [facility] Comment on above: Performed By: #### U RCX #### [facility] [address] [place] [address] Dr. Anthony Bonilla Calcium [Mass/Vol] 9.2 mg/dL Normal 8.5-10.1 [facility] Comment on above: Performed By: #### U RCX #### [facility] [address] [place] [address] Dr. Anthony Bonilla Chloride [Moles/Vol] 104 mmol/L Normal 98-107 [facility] Comment on above: Performed By: #### U RCX #### [facility] [address] [place] [address] Dr. Anthony Bonilla CO2 [Moles/Vol] 28.9 mmol/L Normal 21.0-32.0 [facility] Comment on above: Performed By: #### U RCX #### [facility] [address] [place] [address] Dr. Anthony Bonilla Creatinine [Mass/Vol] 1.21 mg/dL Critically high 0.55-1.02 [facility] Comment on above: Performed By: #### U RCX #### [facility] [address] [place] [address] Dr. Anthony Bonilla EGFR-AF THAI 51 mL/min/1.73m2 Critically low >=60 [facility] Comment on above: Performed By: #### U RCX #### [facility] [address] [place] [address] Dr. Anthony Bonilla EGFR-NON AF THAI 42 mL/min/1.73m2 Critically low >=60 [facility] Comment on above: Performed By: #### U RCX #### [facility] [address] [place] [address] Dr. Anthony Bonilla Globulin (S) [Mass/Vol] 3.1 g/dL Normal [facility] Comment on above: Performed By: #### U RCX #### [facility] [address] [place] [address] Dr. Anthony Bonilla Glucose [Mass/Vol] 107 mg/dL Critically high 74-106 [facility] Comment on above: Performed By: #### U RCX #### [facility] [address] [place] [address] Dr. Anthony Bonilla Potassium [Moles/Vol] 3.4 mmol/L Critically low 3.5-5.1 [facility] Comment on above: Performed By: #### U RCX #### [facility] [address] [address] [address] Anthony Bonilla Protein [Mass/Vol] 6.7 g/dL Normal 6.4-8.2 [facility] Comment on above: Performed By: #### U RCX #### [facility] [address] [address] [address] Anthony Bonilla Sodium [Moles/Vol] 143 mmol/L Normal 136-145 [facility] Comment on above: Performed By: #### U RCX #### [facility] [address] [place] [address] Dr. Anthony Bonilla Urea nitrogen [Mass/Vol] 22.0 mg/dL Critically high 7.0-18.0 [facility] Comment on above: Performed By: #### U RCX #### [facility] [address] [address] [address] Anthony Bonilla Urea nitrogen/Creatinine [Mass ratio] 18.2 mg/mg Normal [facility] Comment on above: Performed By: #### U RCX #### [facility] [address] [place] [address] Dr. Anthony Bonilla Automated erythrocytes count in urine sediment (number/area)Ordered By: Gypsy Mcmahon on 02-16-2022 RBC Auto (Urine sed) [#/Area] 0-1 [HPF] 0-4 [facility] Automated leukocytes count i n urine sediment (number/area)Ordered By: Gypsy Mcmahon on 02-16-2022 WBC Auto (Urine sed) [#/Area] 20-49 [HPF] 0-4 [facility] Bilirubin Test strip Ql (U)O rdered By: Gypsy Mcmahon on 02-16-2022 Bilirubin Ql (U) Negative Negative [facility] Color Auto (U)Ordered By: Nicole Mcmahon on 02-16-2022 Color (U) Yellow Yellow [facility] Ketones Auto test strip (U) [Mass/Vol]Ordered By: Gypsy Mcmahon on 02-16-2022 Ketones (U) [Mass/Vol] Trace Negative [facility] - UrinalysisOrder ed By: Gypsy Mcmahon on 02-16-2022 Hyaline casts LM Ql (Urine sed) 9-19 [LPF] 0-8 [facility] Nitrite Test strip Ql (U)Ord ered By: Gypsy Mcmahon on 02-16-2022 Nitrite Ql (U) Positive Negative [facility] Protein Auto test strip (U) [Mass/Vol]Ordered By: Gypsy Mcmahon on 02-16-2022 Protein (U) [Mass/Vol] Negative Negative [facility] Specific gravity Auto test s trip (U) [Rel density]Ordered By: Gypsy Mcmahon on 02-16-2022 Specific gravity (U) [Rel density] 1.018 1.001-1.03 0 [facility] Squamous epithelial cells de tection in urine sediment by light microscopyOrdered By: Gypsy Mcmahon on 02-16-2022 Epithelial cells.squamous LM Ql (Urine sed) 5-9 [HPF] 0-2 [facility] Urine Cultureon 02-16-2022 Urine Culture >100,000 [facility] Other Urine Culture <16 Susceptible Double the Donation Other Urine Culture <8/4 Susceptible Double the Donation Other Urine Culture <4 Susceptible Double the Donation Other Urine Culture <2 Susceptible [facility] the Donation Other Urine Culture <1 Susceptible [facility] the Donation Other Urine Culture <0.25 Susceptible [facility] Don[facility] Other Urine Culture <0.5 Susceptible [facility] Don[facility] Other Urine Culture <32 Susceptible [facility] the Donation Other Urine Culture <0.5/9.5 Susceptible [facility]ation Other Urine bacteria detection by automated methodOrdered By: Gypsy Mcmahon on 02-16-2022 Bacteria Auto Ql (U) 2+ None Seen [facility] Urine clarity by refractomet ry automatedOrdered By: Gypsy Mcmahon on 02-16-2022 Clarity Refractometry automated (U) Cloudy Clear [facility] Urine culture routineOrdered By: Gypsy Mcmahon on 02-16-2022 Bacteria identified Cx Nom (U) Klebsiella variicola [facility] Urine glucose measurement by automated test strip (mass/volume)Ordered By: Gypsy Mcmahon on 02-16-2022 Glucose Auto test strip (U) [Mass/Vol] Normal mg/dL Normal [facility] Urine hemoglobin detection b y automated test stripOrdered By: Gypsy Mcmahon on 02-16-2022 Hemoglobin Auto test strip Ql (U) Negative Negative [facility] Urine leukocyte esterase det ection by automated test stripOrdered By: Gypsy Mcmahon on 02-16-2022 Leukocyte esterase Auto test strip Ql (U) 2+ Negative [facility] Urobilinogen Auto test strip (U) [Mass/Vol]Ordered By: Gypsy Mcmahon on 02-16-2022 Urobilinogen (U) [Mass/Vol] Normal mg/dL Normal [facility] pH Auto test strip (U)Ordere d By: Gypsy Mcmahon on 02-16-2022 pH (U) 5.5 [pH] 5.0-9.0 [facility] CBC AUTO DIFFon 01-15-2022 BASO # 0.0 103/ul Normal 0.0-0.1 [facility] Comment on above: Performed By: #### C BC #### [facility] [address] [place] [address] Dr. Anthony Bonilla Basophils/100 WBC (Bld) 0.5 % Normal 0.2-2.0 [facility] Comment on above: Performed By: #### C BC #### [facility] [address] [address] [address] Anthony Bonilla EO # 0.1 103/ul Normal 0.0-0.7 [facility] Comment on above: Performed By: #### C BC #### [facility] [address] [place] [address] Dr. Anthony Bonilla Eosinophils/100 WBC (Bld) 0.9 % Normal 0.9-7.0 [facility] Comment on above: Performed By: #### C BC #### [facility] [address] [place] [address] Dr. Anthony Bonilla Erythrocyte distribution width (RBC) [Ratio] 14.8 % Normal 11.0-15.0 [facility] Comment on above: Performed By: #### C BC #### [facility] [address] [place] [address] Dr. Anthony Bonilla Hematocrit (Bld) [Volume fraction] 30.3 % Critically low 36.0-48.0 [facility] Comment on above: Performed By: #### C BC #### [facility] [address] [place] [address] Dr. Anthony Bonilla Hemoglobin (Bld) [Mass/Vol] 9.8 g/dL Critically low 12.0-16.0 [facility] Comment on above: Performed By: #### C BC #### [facility] [address] [place] [address] Dr. Anthony Bonilla IG # 0.03 10e3/ul Normal 0.00-0.03 [facility] Comment on above: Performed By: #### C BC #### [facility] [address] [place] [address] Dr. Anthony Bonilla IG % 0.3 % Normal 0.0-0.5 [facility] Comment on above: Performed By: #### C BC #### [facility] [address] [place] [address] Dr. Anthony Bonilla LYMPH # 1.4 103/ul Normal 1.2-3.8 [facility] Comment on above: Performed By: #### C BC #### [facility] [address] [place] [address] Dr. Anthony Bonilla Lymphocytes/100 WBC (Bld) 15.7 % Critically low 20.5-60.0 [facility] Comment on above: Performed By: #### C BC #### [facility] [address] [place] [address] Dr. Anthony Bonilla MANUAL DIFF REQ NO Normal [facility] Comment on above: Performed By: #### C BC #### [facility] [address] [address] [address] Anthony Bonilla MCH (RBC) [Entitic mass] 30.0 pg Normal 26.7-34.0 [facility] Comment on above: Performed By: #### C BC #### [facility] [address] [address] [address] Anthony Bonilla MCHC (RBC) [Mass/Vol] 32.3 g/dL Normal 29.9-35.2 [facility] Comment on above: Performed By: #### C BC #### [facility] [address] [address] [address] Anthony Bonilla MCV (RBC) [Entitic vol] 92.7 fL Normal 81.0-99.0 [facility] Comment on above: Performed By: #### C BC #### [facility] [address] [place] [address] Dr. Anthony Bonilla MONO # 1.1 103/ul Critically high 0.3-0.8 [facility] Comment on above: Performed By: #### C BC #### [facility] [address] [place] [address] Dr. Anthony Bonilla Monocytes/100 WBC (Bld) 12.0 % Normal 1.7-12.0 [facility] Comment on above: Performed By: #### C BC #### [facility] [address] [place] [address] Dr. Anthony Bonilla NEUT # 6.2 103/ul Normal 1.4-6.5 [facility] Comment on above: Performed By: #### C BC #### [facility] [address] [place] [address] Dr. Anthony Bonilla Neutrophils/100 WBC (Bld) 70.6 % Normal 43.0-75.0 [facility] Comment on above: Performed By: #### C BC #### [facility] [address] [place] [address] Dr. Anthony Bonilla Platelet mean volume (Bld) [Entitic vol] 9.8 fL Normal 9.5-13.5 [facility] Comment on above: Performed By: #### C BC #### [facility] [address] [address] [address] Anthony Bonilla PLT 305 103/ul Normal 150-450 [facility] Comment on above: Performed By: #### C BC #### [facility] [address] [address] [address] Anthony Bonilla RBC 3.27 106/ul Critically low 4.20-5.40 [facility] Comment on above: Performed By: #### C BC #### [facility] [address] [address] [address] Anthony Bonilla WBC 8.7 103/ul Normal 4.0-11.0 [facility] Comment on above: Performed By: #### C BC #### [facility] [address] [address] [address] Anthony Bonilla PROF CHEM 8 (BAS METB)on Anion gap [Moles/Vol] 12.2 mmol/L Normal [facility] Comment on above: Performed By: #### U RCX #### [facility] [address] [address] [address] Anthony Bonilla Calcium [Mass/Vol] 9.1 mg/dL Normal 8.5-10.1 [facility] Comment on above: Performed By: #### U RCX #### [facility] [address] [address] [address] Anthony Bonilla Chloride [Moles/Vol] 104 mmol/L Normal 98-107 [facility] Comment on above: Performed By: #### U RCX #### [facility] [address] [address] [address] Anthony Bonilla CO2 [Moles/Vol] 24.4 mmol/L Normal 21.0-32.0 [facility] Comment on above: Performed By: #### U RCX #### [facility] [address] [address] [address] Anthony Bonilla Creatinine [Mass/Vol] 1.20 mg/dL Critically high 0.55-1.02 [facility] Comment on above: Performed By: #### U RCX #### [facility] [address] [address] [address] Anthony Bonilla EGFR-AF THAI 52 mL/min/1.73m2 Critically low >=60 [facility] Comment on above: Performed By: #### U RCX #### [facility] [address] [address] [address] Anthony Bonilla EGFR-NON AF THAI 43 mL/min/1.73m2 Critically low >=60 [facility] Comment on above: Performed By: #### U RCX #### [facility] [address] [address] [address] Anthony Bonilla Glucose [Mass/Vol] 81 mg/dL Normal 74-106 [facility] Comment on above: Performed By: #### U RCX #### [facility] [address] [address] [address] Anthony Bonilla Potassium [Moles/Vol] 3.6 mmol/L Normal 3.5-5.1 [facility] Comment on above: Performed By: #### U RCX #### [facility] [address] [address] [address] Anthony Bonilla Sodium [Moles/Vol] 137 mmol/L Normal 136-145 [facility] Comment on above: Performed By: #### U RCX #### [facility] [address] [address] [address] Anthony Bonilla Urea nitrogen [Mass/Vol] 21.0 mg/dL Critically high 7.0-18.0 [facility] Comment on above: Performed By: #### U RCX #### [facility] [address] [address] [address] Anthony Bonilla Urea nitrogen/Creatinine [Mass ratio] 17.5 mg/mg Normal [facility] Comment on above: Performed By: #### U RCX #### [facility] [address] [address] [address] Anthony Bonilla CULTURE URINEon 12-29-2021 CULTURE [...] Trimethoprim/Sulfamethoxa zole <=20 S F Normal [facility] Comment on above: Performed By: #### U RCX #### [facility] [address] [place] [address] Dr. Anthony Bonilla ER URINE PROFILEon 2 Bilirubin Ql (U) SMALL Abnormal NEGATIVE [facility] Comment on above: Performed By: #### C BC #### [facility] [address] [place] [address] Dr. Anthony Bonilla Clarity (U) SL CLOUDY Abnormal CLEAR [facility] Comment on above: Performed By: #### C BC #### [facility] [address] [place] [address] Dr. Anthony Bonilla Color (U) YELLOW Normal YELLOW [facility] Comment on above: Performed By: #### C BC #### [facility] [address] [place] [address] Dr. Anthony Bonilla ERUAHD A micrscopic examina tion will be performed if indicated. Normal [facility] Comment on above: Performed By: #### C BC #### [facility] [address] [address] [address] Anthony Bonilla Glucose Ql (U) Negative Normal NEGATIVE [facility] Comment on above: Performed By: #### C BC #### [facility] [address] [address] [address] Anthony Bonilla Hemoglobin Ql (U) Negative Normal NEGATIVE [facility] Comment on above: Performed By: #### C BC #### [facility] [address] [place] [address] Dr. Anthony Bonilla Ketones Ql (U) TRACE Abnormal NEGATIVE [facility] Comment on above: Performed By: #### C BC #### [facility] [address] [place] [address] Dr. Anthony Bonilla LEUKOCYTES MODERATE Abnormal NEGATIVE [facility] Comment on above: Performed By: #### C BC #### [facility] [address] [place] [address] Dr. Anthony Bonilla Nitrite Ql (U) Positive Abnormal NEGATIVE [facility] Comment on above: Performed By: #### C BC #### [facility] [address] [place] [address] Dr. Anthony Bonilla pH (U) 7.5 [pH] Normal 5-9 [facility] Comment on above: Performed By: #### C BC #### [facility] [address] [place] [address] Dr. Anthony Bonilla Protein (U) [Mass/Vol] 30 mg/dL Abnormal NEGAT JAMAR/ TRACE [facility] Comment on above: Performed By: #### C BC #### [facility] [address] [place] [address] Dr. Anthony Bonilla SPEC GRAVITY 1.020 Normal 1.005-<=1. 025 [facility] Comment on above: Performed By: #### C BC #### [facility] [address] [place] [address] Dr. Anthony Bonilla UR MICRO IND INDICATED Normal [facility] Comment on above: Performed By: #### C BC #### [facility] [address] [place] [address] Dr. Anthony Bonilla Urobilinogen Qn (U) 0.2 {Gen'U}/dL Normal 0.2 - 1. 0 [facility] Comment on above: Performed By: #### C BC #### [facility] [address] [place] [address] Dr. Anthony Bonilla URINE MICROSCOPIC ONLYon BACTERIA TRACE Abnormal NONE SEEN [facility] Comment on above: Performed By: #### C BC #### [facility] [address] [place] [address] Dr. Anthony Bonilla Bacteria identified Cx Nom (U) INDICATED Normal [facility] Comment on above: Performed By: #### C BC #### [facility] [address] [place] [address] Dr. Anthony Bonilla CAST NONE SEEN Normal NONE SEEN [facility] Comment on above: Performed By: #### C BC #### [facility] [address] [place] [address] Dr. Anthony Bonilla Crystals LM Nom (Urine sed) NONE SEEN Normal NONE SEEN [facility] Comment on above: Performed By: #### C BC #### [facility] [address] [place] [address] Dr. Anthony Bonilla Epithelial cells LM Ql (Urine sed) FEW Abnormal NONE SEEN /RARE [facility] Comment on above: Performed By: #### C BC #### [facility] [address] [place] [address] Dr. Anthony Bonilla MUCOUS NONE SEEN Normal NONE SEEN [facility] Comment on above: Performed By: #### C BC #### [facility] [address] [place] [address] Dr. Anthony Bonilla RBC 0-2 Normal 0-2 [facility] Comment on above: Performed By: #### C BC #### [facility] [address] [place] [address] Dr. Anthony Bonilla WBC 5-10 Abnormal NONE SEEN [facility] Comment on above: Performed By: #### C BC #### [facility] [address] [place] [address] Dr. Anthony Bonilla PRBC LEUKOREDUCEDon 11-20-19 PRBC LEUKOREDUCED Cross Match Result Compatible Unit Blood Type A Pos Unit Number [id number] Status Information Transfused Product ID Red Blood Cells Product Code [id number] Normal [facility] Comment on above: Performed By: #### P RBC #### [facility] [address] [place] [address] Dr. Anthony Bonilla CBC AUTO DIFFon 11-10-2021 BASO # 0.0 103/ul Normal 0.0-0.1 [facility] Comment on above: Performed By: #### C BC #### [facility] [address] [place] [address] Dr. Anthony Bonilla Basophils/100 WBC (Bld) 0.7 % Normal 0.2-2.0 [facility] Comment on above: Performed By: #### C BC #### [facility] [address] [place] [address] Dr. Anthony Bonilla EO # 0.2 103/ul Normal 0.0-0.7 [facility] Comment on above: Performed By: #### C BC #### [facility] [address] [place] [address] Dr. Anthony Bonilla Eosinophils/100 WBC (Bld) 2.7 % Normal 0.9-7.0 [facility] Comment on above: Performed By: #### C BC #### [facility] [address] [place] [address] Dr. Anthony Bonilla Erythrocyte distribution width (RBC) [Ratio] 16.3 % Critically high 11.0-15.0 [facility] Comment on above: Performed By: #### C BC #### [facility] [address] [place] [address] Dr. Anthony Bonilla Hematocrit (Bld) [Volume fraction] 29.0 % Critically low 36.0-48.0 [facility] Comment on above: Performed By: #### C BC #### [facility] [address] [place] [address] Dr. Anthony Bonilla Hemoglobin (Bld) [Mass/Vol] 9.4 g/dL Critically low 12.0-16.0 [facility] Comment on above: Performed By: #### C BC #### [facility] [address] [place] [address] Dr. Anthony Bonilla IG # 0.04 10e3/ul Critically high 0.00-0.03 [facility] Comment on above: Performed By: #### C BC #### [facility] [address] [place] [address] Dr. Anthony Bonilla IG % 0.7 % Critically high 0.0-0.5 [facility] Comment on above: Performed By: #### C BC #### [facility] [address] [place] [address] Dr. Anthony Bonilla LYMPH # 1.2 103/ul Normal 1.2-3.8 [facility] Comment on above: Performed By: #### C BC #### [facility] [address] [place] [address] Dr. Anthony Bonilla Lymphocytes/100 WBC (Bld) 21.5 % Normal 20.5-60.0 [facility] Comment on above: Performed By: #### C BC #### [facility] [address] [place] [address] Dr. Anthony Bonilla MANUAL DIFF REQ NO Normal [facility] Comment on above: Performed By: #### C BC #### [facility] [address] [place] [address] Dr. Anthony Bonilla MCH (RBC) [Entitic mass] 32.3 pg Normal 26.7-34.0 [facility] Comment on above: Performed By: #### C BC #### [facility] [address] [place] [address] Dr. Anthony Bonilla MCHC (RBC) [Mass/Vol] 32.4 g/dL Normal 29.9-35.2 [facility] Comment on above: Performed By: #### C BC #### [facility] [address] [place] [address] Dr. Anthony Bonilla MCV (RBC) [Entitic vol] 99.7 fL Critically high 81.0-99.0 [facility] Comment on above: Performed By: #### C BC #### [facility] [address] [address] [address] Anthony Bonilla MONO # 0.7 103/ul Normal 0.3-0.8 [facility] Comment on above: Performed By: #### C BC #### [facility] [address] [address] [address] Anthony Bonilla Monocytes/100 WBC (Bld) 12.6 % Critically high 1.7-12.0 [facility] Comment on above: Performed By: #### C BC #### [facility] [address] [address] [address] Anthony Bonilla NEUT # 3.4 103/ul Normal 1.4-6.5 [facility] Comment on above: Performed By: #### C BC #### [facility] [address] [place] [address] Dr. Anthony Bonilla Neutrophils/100 WBC (Bld) 61.8 % Normal 43.0-75.0 [facility] Comment on above: Performed By: #### C BC #### [facility] [address] [address] [address] Anthony Bonilla Platelet mean volume (Bld) [Entitic vol] 9.0 fL Critically low 9.5-13.5 [facility] Comment on above: Performed By: #### C BC #### [facility] [address] [place] [address] Dr. Anthony Bonilla PLT 429 103/ul Normal 150-450 [facility] Comment on above: Performed By: #### C BC #### [facility] [address] [address] [address] Anthony Bonilla RBC 2.91 106/ul Critically low 4.20-5.40 [facility] Comment on above: Performed By: #### C BC #### [facility] [address] [address] [address] Anthony Bonilla WBC 5.5 103/ul Normal 4.0-11.0 [facility] Comment on above: Performed By: #### C BC #### [facility] [address] [address] [address] Anthony Bonilla PROF CHEM 8 (BAS METB)on Anion gap [Moles/Vol] 11.0 mmol/L Normal [facility] Comment on above: Performed By: #### B MP #### [facility] [address] [address] [address] Anthony Bonilla Calcium [Mass/Vol] 9.2 mg/dL Normal 8.5-10.1 [facility] Comment on above: Performed By: #### B MP #### [facility] [address] [address] [address] Anthony Bonilla Chloride [Moles/Vol] 107 mmol/L Normal 98-107 [facility] Comment on above: Performed By: #### B MP #### [facility] [address] [address] [address] Anthony Bonilla CO2 [Moles/Vol] 27.4 mmol/L Normal 21.0-32.0 [facility] Comment on above: Performed By: #### B MP #### [facility] [address] [address] [address] Anthony Bonilla Creatinine [Mass/Vol] 1.12 mg/dL Critically high 0.55-1.02 [facility] Comment on above: Performed By: #### B MP #### [facility] [address] [address] [address] Anthony Bonilla EGFR-AF THAI 56 mL/min/1.73m2 Critically low >=60 [facility] Comment on above: Performed By: #### B MP #### [facility] [address] [address] [address] Anthony Bonilla EGFR-NON AF THAI 46 mL/min/1.73m2 Critically low >=60 [facility] Comment on above: Performed By: #### B MP #### [facility] [address] [address] [address] Anthony Bonilla Glucose [Mass/Vol] 89 mg/dL Normal 74-106 [facility] Comment on above: Performed By: #### B MP #### [facility] [address] [address] [address] Anthony Bonilla Potassium [Moles/Vol] 4.4 mmol/L Normal 3.5-5.1 [facility] Comment on above: Performed By: #### B MP #### [facility] [address] [place] [address] Dr. Anthony Bonilla Sodium [Moles/Vol] 141 mmol/L Normal 136-145 [facility] Comment on above: Performed By: #### B MP #### [facility] [address] [place] [address] Dr. Anthony Bonilla Urea nitrogen [Mass/Vol] 18.0 mg/dL Normal 7.0-18.0 [facility] Comment on above: Performed By: #### B MP #### [facility] [address] [place] [address] Dr. Anthony Bonilla Urea nitrogen/Creatinine [Mass ratio] 16.1 mg/mg Normal [facility] Comment on above: Performed By: #### B MP #### [facility] [address] [place] [address] Dr. Anthony Bonilla CBC AUTO DIFFon 11-04-2021 BASO # 0.0 103/ul Normal 0.0-0.1 [facility] Comment on above: Performed By: #### C BC #### [facility] [address] [place] [address] Dr. Anthony Bonilla Basophils/100 WBC (Bld) 0.2 % Normal 0.2-2.0 [facility] Comment on above: Performed By: #### C BC #### [facility] [address] [place] [address] Dr. Anthony Bonilla EO # 0.1 103/ul Normal 0.0-0.7 [facility] Comment on above: Performed By: #### C BC #### [facility] [address] [place] [address] Dr. Anthony Bonilla Eosinophils/100 WBC (Bld) 0.8 % Critically low 0.9-7.0 [facility] Comment on above: Performed By: #### C BC #### [facility] [address] [address] [address] Anthony Bonilla Erythrocyte distribution width (RBC) [Ratio] 16.7 % Critically high 11.0-15.0 [facility] Comment on above: Performed By: #### C BC #### [facility] [address] [place] [address] Dr. Anthony Bonilla Hematocrit (Bld) [Volume fraction] 25.6 % Critically low 36.0-48.0 [facility] Comment on above: Performed By: #### C BC #### [facility] [address] [place] [address] Dr. Anthony Bonilla Hemoglobin (Bld) [Mass/Vol] 8.5 g/dL Critically low 12.0-16.0 [facility] Comment on above: Performed By: #### C BC #### [facility] [address] [place] [address] Dr. Anthony Bonilla IG # 0.05 10e3/ul Critically high 0.00-0.03 [facility] Comment on above: Performed By: #### C BC #### [facility] [address] [place] [address] Dr. Anthony Bonilla IG % 0.5 % Normal 0.0-0.5 [facility] Comment on above: Performed By: #### C BC #### [facility] [address] [place] [address] Dr. Anthony Bonilla LYMPH # 0.6 103/ul Critically low 1.2-3.8 [facility] Comment on above: Performed By: #### C BC #### [facility] [address] [place] [address] Dr. Anthony Bonilla Lymphocytes/100 WBC (Bld) 6.2 % Critically low 20.5-60.0 [facility] Comment on above: Performed By: #### C BC #### [facility] [address] [place] [address] Dr. Anthony Bonilla MANUAL DIFF REQ NO Normal [facility] Comment on above: Performed By: #### C BC #### [facility] [address] [address] [address] Anthony Bonilla MCH (RBC) [Entitic mass] 31.6 pg Normal 26.7-34.0 [facility] Comment on above: Performed By: #### C BC #### [facility] [address] [place] [address] Dr. Anthony Bonilla MCHC (RBC) [Mass/Vol] 33.2 g/dL Normal 29.9-35.2 [facility] Comment on above: Performed By: #### C BC #### [facility] [address] [place] [address] Dr. Anthony Bonilla MCV (RBC) [Entitic vol] 95.2 fL Normal 81.0-99.0 [facility] Comment on above: Performed By: #### C BC #### [facility] [address] [place] [address] Dr. Anthony Bonilla MONO # 0.6 103/ul Normal 0.3-0.8 [facility] Comment on above: Performed By: #### C BC #### [facility] [address] [place] [address] Dr. Anthony Bonilla Monocytes/100 WBC (Bld) 6.1 % Normal 1.7-12.0 [facility] Comment on above: Performed By: #### C BC #### [facility] [address] [place] [address] Dr. Anthony Bonilla NEUT # 8.8 103/ul Critically high 1.4-6.5 [facility] Comment on above: Performed By: #### C BC #### [facility] [address] [place] [address] Dr. Anthony Bonilla Neutrophils/100 WBC (Bld) 86.2 % Critically high 43.0-75.0 [facility] Comment on above: Performed By: #### C BC #### [facility] [address] [place] [address] Dr. Anthony Bonilla Platelet mean volume (Bld) [Entitic vol] 9.8 fL Normal 9.5-13.5 [facility] [facility] Comment on above: Performed By: #### C BC #### [facility] [address], [place] [address] Dr. Anthony Bonilla PLT 156 103/ul Normal 150-450 [facility] Comment on above: Performed By: #### C BC #### [facility] [address], [place] [address] Dr. Anthony Bonilla RBC 2.69 106/ul Critically low 4.20-5.40 [facility] Comment on above: Performed By: #### C BC #### [facility] [id number] Anthony Bonilla WBC 10.3 103/ul Normal 4.0-11.0 [facility] Comment on above: Performed By: #### C BC #### [facility] [address] [place] [address] Dr. Anthony Bonilla CULTURE URINEon 11-04-2021 CULTURE [...] F Trimethoprim/Sulfamethoxa zole <=20 S F Normal [facility] Comment on above: Performed By: #### U RCX #### [facility] [address] [place] [address] Dr. Anthony Bonilla PROF CHEM 8 (BAS METB)on Anion gap [Moles/Vol] 12.9 mmol/L Normal [facility] Comment on above: Performed By: #### U RCX #### [facility] [address] [place] [address] Dr. Anthony Bonilla Calcium [Mass/Vol] 8.6 mg/dL Normal 8.5-10.1 [facility] Comment on above: Performed By: #### U RCX #### [facility] [address] [place] [address] [address] Anthony Bonilla Chloride [Moles/Vol] 108 mmol/L Critically high 98-107 [facility] Comment on above: Performed By: #### U RCX #### [facility] [address] [place] [address] [address] Anthony Bonilla CO2 [Moles/Vol] 23.1 mmol/L Normal 21.0-32.0 [facility] Comment on above: Performed By: #### U RCX #### [facility] [address] [place] [address] [address] Anthony Bonilla Creatinine [Mass/Vol] 0.98 mg/dL Normal 0.55-1.02 [facility] Comment on above: Performed By: #### U RCX #### [facility] [address] [address] [address] Anthony Bonilla EGFR-AF THAI >60 Normal >=60 [facility] Comment on above: Performed By: #### U RCX #### [facility] [address] [address] [address] Anthony Bonilla EGFR-NON AF THAI 54 mL/min/1.73m2 Critically low >=60 [facility] Comment on above: Performed By: #### U RCX #### [facility] [address] [address] [address] Anthony Bonilla Glucose [Mass/Vol] 86 mg/dL Normal 74-106 [facility] Comment on above: Performed By: #### U RCX #### [facility] [address] [place] [address] [address] Anthony Bonilla Potassium [Moles/Vol] 4.0 mmol/L Normal 3.5-5.1 [facility] Comment on above: Performed By: #### U RCX #### [facility] [address] [place] [address] [address] Anthony Bonilla Sodium [Moles/Vol] 140 mmol/L Normal 136-145 [facility] Comment on above: Performed By: #### U RCX #### [facility] [address] [address] [address] Anthony Bonilla Urea nitrogen [Mass/Vol] 31.0 mg/dL Critically high 7.0-18.0 [facility] Comment on above: Performed By: #### U RCX #### [facility] [address] [place] [address] Dr. Anthony Bonilla Urea nitrogen/Creatinine [Mass ratio] 31.6 mg/mg Normal [facility] Comment on above: Performed By: #### U RCX #### [facility] [address] [place] [address] Dr. Anthony Bonilla CBC AUTO DIFFon 11-03-2021 BASO # 0.0 103/ul Normal 0.0-0.1 [facility] Comment on above: Performed By: #### C BC #### [facility] [address] [place] [address] Dr. Anthony Bonilla Basophils/100 WBC (Bld) 0.3 % Normal 0.2-2.0 [facility] Comment on above: Performed By: #### C BC #### [facility] [address] [place] [address] Dr. Anthony Bonilla EO # 0.1 103/ul Normal 0.0-0.7 [facility] Comment on above: Performed By: #### C BC #### [facility] [address] [place] [address] Dr. Anthony Bonilla Eosinophils/100 WBC (Bld) 0.6 % Critically low 0.9-7.0 [facility] Comment on above: Performed By: #### C BC #### [facility] [address] [place] [address] Dr. Anthony Bonilla Erythrocyte distribution width (RBC) [Ratio] 14.0 % Normal 11.0-15.0 [facility] Comment on above: Performed By: #### C BC #### [facility] [address] [place] [address] Dr. Anthony Bonilla Hematocrit (Bld) [Volume fraction] 23.1 % Critically low 36.0-48.0 [facility] Comment on above: Result Comment: Flui ds given Performed By: #### C BC #### [facility] [address] [place] [address] Dr. Anthony Bonilla Hemoglobin (Bld) [Mass/Vol] 7.6 g/dL Critically low 12.0-16.0 [facility] Comment on above: Performed By: #### C BC #### [facility] [address] [place] [address] Dr. Anthony Bonilla IG # 0.07 10e3/ul Critically high 0.00-0.03 [facility] Comment on above: Performed By: #### C BC #### [facility] [address] [place] [address] Dr. Anthony Bonilla IG % 0.6 % Critically high 0.0-0.5 [facility] Comment on above: Performed By: #### C BC #### [facility] [address] [place] [address] Dr. Anthony Bonilla LYMPH # 0.7 103/ul Critically low 1.2-3.8 [facility] Comment on above: Performed By: #### C BC #### [facility] [address] [place] [address] Dr. Anthony Bonilla Lymphocytes/100 WBC (Bld) 5.7 % Critically low 20.5-60.0 [facility] Comment on above: Performed By: #### C BC #### [facility] [address] [place] [address] Dr. Anthony Bonilla MANUAL DIFF REQ NO Normal [facility] Comment on above: Performed By: #### C BC #### [facility] [address] [place] [address] Dr. Anthony Bonilla MCH (RBC) [Entitic mass] 32.6 pg Normal 26.7-34.0 [facility] Comment on above: Performed By: #### C BC #### [facility] [address] [place] [address] Dr. Anthony Bonilla MCHC (RBC) [Mass/Vol] 32.9 g/dL Normal 29.9-35.2 [facility] Comment on above: Performed By: #### C BC #### [facility] [address] [place] [address] Dr. Anthony Bonilla MCV (RBC) [Entitic vol] 99.1 fL Critically high 81.0-99.0 [facility] Comment on above: Performed By: #### C BC #### [facility] [address] [place] [address] Dr. Anthony Bonilla MONO # 0.8 103/ul Normal 0.3-0.8 [facility] Comment on above: Performed By: #### C BC #### [facility] [address] [place] [address] Dr. Anthony Bonilla Monocytes/100 WBC (Bld) 6.8 % Normal 1.7-12.0 [facility] Comment on above: Performed By: #### C BC #### [facility] [address] [place] [address] Dr. Anthony Bonilla NEUT # 9.8 103/ul Critically high 1.4-6.5 [facility] Comment on above: Performed By: #### C BC #### [facility] [address] [place] [address] Dr. Anthony Bonilla Neutrophils/100 WBC (Bld) 86.0 % Critically high 43.0-75.0 [facility] Comment on above: Performed By: #### C BC #### [facility] [address] [place] [address] Dr. Anthony Bonilla Platelet mean volume (Bld) [Entitic vol] 9.5 fL Normal 9.5-13.5 [facility] Comment on above: Performed By: #### C BC #### [facility] [address] [place] [address] Dr. Anthony Bonilla PLT 160 103/ul Normal 150-450 [facility] Comment on above: Performed By: #### C BC #### [facility] [address] [place] [address] Dr. Anthony Bonilla RBC 2.33 106/ul Critically low 4.20-5.40 [facility] Comment on above: Performed By: #### C BC #### [facility] [address] [place] [address] Dr. Anthony Bonilla WBC 11.4 103/ul Critically high 4.0-11.0 [facility] Comment on above: Performed By: #### C BC #### [facility] [address] [place] [address] Dr. Anthony Bonilla HEMOGLOBIN AND HEMATOCRITon 11-03-2021 Hematocrit (Bld) [Volume fraction] 27.0 % Critically low 36.0-48.0 [facility] Comment on above: Performed By: #### U RCX #### [facility] [address] [place] [address] Dr. Anthony Bonilla Hemoglobin (Bld) [Mass/Vol] 9.1 g/dL Critically low 12.0-16.0 [facility] Comment on above: Performed By: #### U RCX #### [facility] [address] [place] [address] Dr. Anthony Bonilla OCC BLD IMMUNO SCREENon 10-10 OCCULT BLOOD Positive Abnormal NEGATIVE [facility] Comment on above: Performed By: #### C BC #### [facility] [address] [place] [address] Dr. Anthony Bonilla PROF CHEM 8 (BAS METB)on Anion gap [Moles/Vol] 10.7 mmol/L Normal [facility] Comment on above: Performed By: #### C BC #### [facility] [address] [place] [address] Dr. Anthony Bonilla Calcium [Mass/Vol] 8.6 mg/dL Normal 8.5-10.1 [facility] Comment on above: Performed By: #### C BC #### [facility] [address] [place] [address] Dr. Anthony Bonilla Chloride [Moles/Vol] 107 mmol/L Normal 98-107 [facility] Comment on above: Performed By: #### C BC #### [facility] [address] [place] [address] Dr. Anthony Bonilla CO2 [Moles/Vol] 24.4 mmol/L Normal 21.0-32.0 [facility] Comment on above: Performed By: #### C BC #### [facility] [address] [place] [address] [address] Anthony Bonilla Creatinine [Mass/Vol] 0.98 mg/dL Normal 0.55-1.02 [facility] Comment on above: Performed By: #### C BC #### [facility] [address] [place] [address] [address] Anthony Bonilla EGFR-AF THAI >60 Normal >=60 [facility] Comment on above: Performed By: #### C BC #### [facility] [address] [place] [address] Dr. Anthony Bonilla EGFR-NON AF THAI 54 mL/min/1.73m2 Critically low >=60 [facility] Comment on above: Performed By: #### C BC #### [facility] [address] [place] [address] Dr. Anthony Bonilla Glucose [Mass/Vol] 98 mg/dL Normal 74-106 [facility] Comment on above: Performed By: #### C BC #### [facility] [address] [place] [address] Dr. Anthony Bonilla Potassium [Moles/Vol] 4.1 mmol/L Normal 3.5-5.1 [facility] Comment on above: Performed By: #### C BC #### [facility] [address] [place] [address] Dr. Anthony Bonilla Sodium [Moles/Vol] 138 mmol/L Normal 136-145 [facility] Comment on above: Performed By: #### C BC #### [facility] [address] [place] [address] Dr. Anthony Bonilla Urea nitrogen [Mass/Vol] 43.0 mg/dL Critically high 7.0-18.0 [facility] Comment on above: Performed By: #### C BC #### [facility] [address] [place] [address] Dr. Anthony Bonilla Urea nitrogen/Creatinine [Mass ratio] 43.9 mg/mg Normal [facility] Comment on above: Performed By: #### C BC #### [facility] [address] [place] [address] Dr. Anthony Bonilla TYPE AND SCREENon 11-03-2021 TYPE AND SCREEN Negative Normal [facility] Comment on above: Performed By: #### C BC #### [facility] [address] [place] [address] Dr. Anthony Bonilla CBC AUTO DIFFon 11-02-2021 BASO # 0.0 103/ul Normal 0.0-0.1 [facility] Comment on above: Performed By: #### U RCX #### [facility] [address] [place] [address] Dr. Anthony Bonilla Basophils/100 WBC (Bld) 0.3 % Normal 0.2-2.0 [facility] Comment on above: Performed By: #### U RCX #### [facility] [address] [place] [address] Dr. Anthony Bonilla EO # 0.0 103/ul Normal 0.0-0.7 [facility] Comment on above: Performed By: #### U RCX #### [facility] [address] [place] [address] Dr. Anthony Bonilla Eosinophils/100 WBC (Bld) 0.1 % Critically low 0.9-7.0 [facility] Comment on above: Performed By: #### U RCX #### [facility] [address] [place] [address] Dr. Anthony Bonilla Erythrocyte distribution width (RBC) [Ratio] 13.9 % Normal 11.0-15.0 [facility] Comment on above: Performed By: #### U RCX #### [facility] [address] [place] [address] Dr. Anthony Bonilla Hematocrit (Bld) [Volume fraction] 31.8 % Critically low 36.0-48.0 [facility] Comment on above: Performed By: #### U RCX #### [facility] [address] [place] [address] Dr. Anthony Bonilla Hemoglobin (Bld) [Mass/Vol] 10.5 g/dL Critically low 12.0-16.0 [facility] Comment on above: Performed By: #### U RCX #### [facility] [address] [place] [address] Dr. Anthony Bonilla IG # 0.07 10e3/ul Critically high 0.00-0.03 [facility] Comment on above: Performed By: #### U RCX #### [facility] [address] [place] [address] Dr. Anthony Bonilla IG % 0.5 % Normal 0.0-0.5 [facility] Comment on above: Performed By: #### U RCX #### [facility] [address] [place] [address] Dr. Anthony Bonilla LYMPH # 0.9 103/ul Critically low 1.2-3.8 [facility] Comment on above: Performed By: #### U RCX #### [facility] [address] [place] [address] Dr. Anthony Bonilla Lymphocytes/100 WBC (Bld) 6.1 % Critically low 20.5-60.0 [facility] Comment on above: Performed By: #### U RCX #### [facility] [address] [place] [address] Dr. Anthony Bonilla MANUAL DIFF REQ NO Normal [facility] Comment on above: Performed By: #### U RCX #### [facility] [address] [place] [address] Dr. Anthony Bonilla MCH (RBC) [Entitic mass] 32.7 pg Normal 26.7-34.0 [facility] Comment on above: Performed By: #### U RCX #### [facility] [address] [place] [address] Dr. Anthony Bonilla MCHC (RBC) [Mass/Vol] 33.0 g/dL Normal 29.9-35.2 [facility] Comment on above: Performed By: #### U RCX #### [facility] [address] [place] [address] Dr. Anthony Bonilla MCV (RBC) [Entitic vol] 99.1 fL Critically high 81.0-99.0 [facility] Comment on above: Performed By: #### U RCX #### [facility] [address] [place] [address] [address] Anthony Bonilla MONO # 1.0 103/ul Critically high 0.3-0.8 [facility] Comment on above: Performed By: #### U RCX #### [facility] [address] [place] [address] [address] Anthony Bonilla Monocytes/100 WBC (Bld) 6.8 % Normal 1.7-12.0 [facility] Comment on above: Performed By: #### U RCX #### [facility] [address] [place] [address] Dr. Anthony Bonilla NEUT # 12.1 103/ul Critically high 1.4-6.5 [facility] Comment on above: Performed By: #### U RCX #### [facility] [address] [place] [address] Dr. Anthony Bonilla Neutrophils/100 WBC (Bld) 86.2 % Critically high 43.0-75.0 [facility] Comment on above: Performed By: #### U RCX #### [facility] [address] [place] [address] Dr. Anthony Bonilla Platelet mean volume (Bld) [Entitic vol] 9.8 fL Normal 9.5-13.5 [facility] Comment on above: Performed By: #### U RCX #### [facility] [address] [place] [address] Dr. Anthony Bonilla PLT 175 103/ul Normal 150-450 [facility] Comment on above: Performed By: #### U RCX #### [facility] [address] [place] [address] Dr. Anthony Bonilla RBC 3.21 106/ul Critically low 4.20-5.40 [facility] Comment on above: Performed By: #### U RCX #### [facility] [address] [place] [address] Dr. Anthony Bonilla WBC 14.0 103/ul Critically high 4.0-11.0 [facility] Comment on above: Performed By: #### U RCX #### [facility] [address] [address] [address] HEAD WO CONon [...] HERNANDO HAMLIN Date: 2021-11-01 22:36 Normal [facility] PROF CHEM 8 (BAS METB)on Anion gap [Moles/Vol] 12.2 mmol/L Normal [facility] Comment on above: Performed By: #### C BC #### [facility] [address] [place] [address] Dr. Anthony Bonilla Calcium [Mass/Vol] 8.7 mg/dL Normal 8.5-10.1 [facility] Comment on above: Performed By: #### C BC #### [facility] [address] [place] [address] [address] Anthony Bonilla Chloride [Moles/Vol] 103 mmol/L Normal 98-107 [facility] Comment on above: Performed By: #### C BC #### [facility] [address] [place] [address] [address] Anthony Bonilla CO2 [Moles/Vol] 25.7 mmol/L Normal 21.0-32.0 [facility] Comment on above: Performed By: #### C BC #### [facility] [address] [place] [address] [address] Anthony Bonilla Creatinine [Mass/Vol] 1.08 mg/dL Critically high 0.55-1.02 [facility] Comment on above: Performed By: #### C BC #### [facility] [address] [place] [address] [address] Anthony Bonilla EGFR-AF THAI 58 mL/min/1.73m2 Critically low >=60 [facility] Comment on above: Performed By: #### C BC #### [facility] [address] [place] [address] [address] Anthony Bonilla EGFR-NON AF THAI 48 mL/min/1.73m2 Critically low >=60 [facility] Comment on above: Performed By: #### C BC #### [facility] [address] [place] [address] [address] Anthony Bonilla Glucose [Mass/Vol] 84 mg/dL Normal 74-106 [facility] Comment on above: Performed By: #### C BC #### [facility] [address] [address] [address] Anthony Bonilla Potassium [Moles/Vol] 4.9 mmol/L Normal 3.5-5.1 [facility] Comment on above: Performed By: #### C BC #### [facility] [address] [place] [address] [address] Anthony Bonilla Sodium [Moles/Vol] 136 mmol/L Normal 136-145 [facility] Comment on above: Performed By: #### C BC #### [facility] [address] [address] [address] Anthony Bonilla Urea nitrogen [Mass/Vol] 33.0 mg/dL Critically high 7.0-18.0 [facility] Comment on above: Performed By: #### C BC #### [facility] [address] [place] [address] [address] Anthony Bonilla Urea nitrogen/Creatinine [Mass ratio] 30.6 mg/mg Normal [facility] Comment on above: Performed By: #### C BC #### [facility] [address] [place] [address] [address] Anthony Bonilla XR CHEST 1 Von [...] GIANA HOLLY Date: 2021-11-01 22:05 Normal [facility] CARDIAC DARWIN ADMITon 022 CK [Catalytic activity/Vol] 92 U/L Normal 26-192 [facility] Comment on above: Performed By: #### C BC #### [facility] [address] [place] [address] Dr. Anthony Bonilla CK.MB [Mass/Vol] 1.73 ng/mL Normal <=3.60 [facility] Comment on above: Performed By: #### C BC #### [facility] [address] [place] [address] Dr. Anthony Bonilla HSTROP 20.0 pg/mL Normal 4.0-51.3 [facility] Comment on above: Result Comment: CUT- OFF POINTS HAVE BEEN ESTABLISHED BASED ON THE FOURTH UNIVERSAL DEFINITIONS OF MYOCARDIAL INFARCTION. THE UPPER REFERENCE LIMIT (URL) OF TROPONIN, DEFINED THE 99TH PERCENTILE OF cTnI DISTRIBUTION IN A REFERENCE POPULATION, HAS BEEN CONFIRMED THE DECISION THRESHOLD FOR CA DIAGNOSIS. Performed By: #### C BC #### [facility] [address] [address] [address] Anthony Bonilla CANDIDA 58 ng/mL Normal 9-82 [facility] Comment on above: Performed By: #### C BC #### [facility] [address] [place] [address] Dr. Anthony Bonilla CBC AUTO DIFFon 11-01-2021 BASO # 0.0 103/ul Normal 0.0-0.1 [facility] Comment on above: Performed By: #### U RCX #### [facility] [address] [address] [address] Anthony Bonilla Basophils/100 WBC (Bld) 0.2 % Normal 0.2-2.0 [facility] Comment on above: Performed By: #### U RCX #### [facility] [address] [place] [address] Dr. Anthony Bonilla EO # 0.0 103/ul Normal 0.0-0.7 [facility] Comment on above: Performed By: #### U RCX #### [facility] [address] [place] [address] Dr. Anthony Bonilla Eosinophils/100 WBC (Bld) 0.0 % Critically low 0.9-7.0 [facility] Comment on above: Performed By: #### U RCX #### [facility] [address] [place] [address] Dr. Anthony Bonilla Erythrocyte distribution width (RBC) [Ratio] 14.1 % Normal 11.0-15.0 [facility] Comment on above: Performed By: #### U RCX #### [facility] [address] [place] [address] Dr. Anthony Bonilla Hematocrit (Bld) [Volume fraction] 36.0 % Normal 36.0-48.0 [facility] Comment on above: Performed By: #### U RCX #### [facility] [address] [place] [address] Dr. Anthony Bonilla Hemoglobin (Bld) [Mass/Vol] 12.1 g/dL Normal 12.0-16.0 [facility] Comment on above: Performed By: #### U RCX #### [facility] [address] [place] [address] Dr. Anthony Bonilla IG # 0.11 10e3/ul Critically high 0.00-0.03 [facility] Comment on above: Performed By: #### U RCX #### [facility] [address] [place] [address] Dr. Anthony Bonilla IG % 0.5 % Normal 0.0-0.5 [facility] Comment on above: Performed By: #### U RCX #### [facility] [address] [address] [address] Anthony Bonilla LYMPH # 0.7 103/ul Critically low 1.2-3.8 [facility] Comment on above: Performed By: #### U RCX #### [facility] [address] [address] [address] Anthony Bonilla Lymphocytes/100 WBC (Bld) 3.2 % Critically low 20.5-60.0 [facility] Comment on above: Performed By: #### U RCX #### [facility] [address] [address] [address] Anthony Bonilla MANUAL DIFF REQ NO Normal [facility] Comment on above: Performed By: #### U RCX #### [facility] [address] [place] [address] Dr. Anthony Bonilla MCH (RBC) [Entitic mass] 33.0 pg Normal 26.7-34.0 [facility] Comment on above: Performed By: #### U RCX #### [facility] [address] [address] [address] Anthony Bonilla MCHC (RBC) [Mass/Vol] 33.6 g/dL Normal 29.9-35.2 [facility] Comment on above: Performed By: #### U RCX #### [facility] [address] [place] [address] Dr. Anthony Bonilla MCV (RBC) [Entitic vol] 98.1 fL Normal 81.0-99.0 [facility] Comment on above: Performed By: #### U RCX #### [facility] [address] [address] [address] Anthony Bonilla MONO # 1.1 103/ul Critically high 0.3-0.8 [facility] Comment on above: Performed By: #### U RCX #### [facility] [address] [address] [address] Anthony Bonilla Monocytes/100 WBC (Bld) 4.8 % Normal 1.7-12.0 [facility] Comment on above: Performed By: #### U RCX #### [facility] [address] [place] [address] Dr. Anthony Bonilla NEUT # 20.3 103/ul Critically high 1.4-6.5 [facility] Comment on above: Performed By: #### U RCX #### [facility] [address] [place] [address] Dr. Anthony Bonilla Neutrophils/100 WBC (Bld) 91.3 % Critically high 43.0-75.0 [facility] Comment on above: Performed By: #### U RCX #### [facility] [address] [place] [address] Dr. Anthony Bonilla Platelet mean volume (Bld) [Entitic vol] 10.8 fL Normal 9.5-13.5 [facility] Comment on above: Performed By: #### U RCX #### [facility] [address] [place] [address] Dr. Anthony Bonilla PLT 179 103/ul Normal 150-450 [facility] Comment on above: Performed By: #### U RCX #### [facility] [address] [place] [address] Dr. Anthony Bonilla RBC 3.67 106/ul Critically low 4.20-5.40 [facility] Comment on above: Performed By: #### U RCX #### [facility] [address] [place] [address] Dr. Anthony Bonilla WBC 22.2 103/ul Critically high 4.0-11.0 [facility] Comment on above: Performed By: #### U RCX #### [facility] [address] [place] [address] Dr. Anthony Bonilla CULTURE BLOODon 11-01-2021 Microscopic examination of blood, culture Culture Observations: NO GROWTH AT 5 DAYS. Normal [facility] Comment on above: Performed By: #### B LDCX2 #### [facility] [address] [place] [address] Dr. Anthony Bonilla Performed By: #### C BC #### [facility] [address] [place] [address] Dr. Anthony Bonilla Covid-19 PCR (CVDTBH)on 10-10 SARS-CoV-2 (COVID-19) RNA OH+probe Ql (Unsp spec) Detected Critically abnormal NOT DETECTED [facility] Comment on above: Result Comment: This test is not yet approved or cleared by the [place] FDA. When there are no FDA-approved or cleared tests available, and other criteria are met, FDA can make tests available under an emergency access mechanism called an Emergency Use Authorization (EUA). The EUA for this test is supported by the [place] of Health and Human Service's declaration that [...] used). Performed By: #### C BC #### [facility] [address] [place] [address] Dr. Anthony Bonilla ER URINE PROFILEon 2 Bilirubin Ql (U) Negative Normal NEGATIVE [facility] Comment on above: Performed By: #### U RCX #### [facility] [address] [place] [address] Dr. Anthony Bonilla Clarity (U) CLEAR Normal CLEAR [facility] Comment on above: Performed By: #### U RCX #### [facility] [address] [place] [address] Dr. Anthony Bonilla Color (U) LT. YELLOW Normal YELLOW [facility] Comment on above: Performed By: #### U RCX #### [facility] [address] [place] [address] Dr. Anthony Bonilla ERUAHD A micrscopic examina tion will be performed if indicated. Normal [facility] Comment on above: Performed By: #### U RCX #### [facility] [address] [place] [address] Dr. Anthony Bonilla Glucose Ql (U) Negative Normal NEGATIVE [facility] Comment on above: Performed By: #### U RCX #### [facility] [address] [address] [address] Anthony Bonilla Hemoglobin Ql (U) TRACE-INTACT Abnormal NEGATIVE [facility] Comment on above: Performed By: #### U RCX #### [facility] [address] [address] [address] Anthony Bonilla Ketones Ql (U) Negative Normal NEGATIVE [facility] Comment on above: Performed By: #### U RCX #### [facility] [address] [place] [address] Dr. Anthony Bonilla LEUKOCYTES Negative Normal NEGATIVE [facility] Comment on above: Performed By: #### U RCX #### [facility] [address] [place] [address] Dr. Anthony Bonilla Nitrite Ql (U) Negative Normal NEGATIVE [facility] Comment on above: Performed By: #### U RCX #### [facility] [address] [place] [address] Dr. Anthony Bonilla pH (U) 6.0 [pH] Normal 5-9 [facility] Comment on above: Performed By: #### U RCX #### [facility] [address] [place] [address] Dr. Anthony Bonilla SPEC GRAVITY 1.020 Normal 1.005-<=1. 025 [facility] Comment on above: Performed By: #### U RCX #### [facility] [address] [place] [address] Dr. Anthony Bonilla UA PROTEIN Negative Normal NEGATIVE/ TRACE [facility] Comment on above: Performed By: #### U RCX #### [facility] [address] [place] [address] Dr. Anthony Bonilla UR MICRO IND INDICATED Normal [facility] Comment on above: Performed By: #### U RCX #### [facility] [address] [place] [address] Dr. Anthony Boinlla Urobilinogen Qn (U) 1.0 {Gen'U}/dL Normal 0.2 - 1. 0 [facility] Comment on above: Performed By: #### U RCX #### [facility] [address] [place] [address] Dr. Anthony Bonilla LACTATE/LACTIC ACIDon 2021 Lactate [Moles/Vol] 1.6 mmol/L Normal 0.4-1.9 [facility] Comment on above: Performed By: #### C BC #### [facility] [address] [place] [address] Dr. Anthony Bonilla PROF 14(COMP METB)on 022 Albumin [Mass/Vol] 3.2 g/dL Critically low 3.4-5.0 [facility] Comment on above: Performed By: #### C BC #### [facility] [address] [place] [address] Dr. Anthony Bonilla Albumin/Globulin [Mass ratio] 0.9 {ratio} Normal [facility] Comment on above: Performed By: #### C BC #### [facility] [address] [place] [address] Dr. Anthony Bonilla ALP [Catalytic activity/Vol] 26 U/L Critically low 46-116 [facility] Comment on above: Performed By: #### C BC #### [facility] [address] [place] [address] Dr. Anthony Bonilla ALT [Catalytic activity/Vol] 32 U/L Normal 14-59 [facility] Comment on above: Performed By: #### C BC #### [facility] [address] [place] [address] Dr. Anthony Bonilla Anion gap [Moles/Vol] 11.5 mmol/L Normal [facility] Comment on above: Performed By: #### C BC #### [facility] [address] [place] [address] Dr. Anthony Bonilla AST [Catalytic activity/Vol] 16 U/L Normal 15-37 [facility] Comment on above: Performed By: #### C BC #### [facility] [address] [place] [address] Dr. Anthony Bonilla Bilirubin [Mass/Vol] 1.2 mg/dL Critically high 0.2-1.0 [facility] Comment on above: Performed By: #### C BC #### [facility] [address] [address] [address] Anthony Bonilla Calcium [Mass/Vol] 9.0 mg/dL Normal 8.5-10.1 [facility] Comment on above: Performed By: #### C BC #### [facility] [address] [address] [address] Anthony Bonilla Chloride [Moles/Vol] 102 mmol/L Normal 98-107 [facility] Comment on above: Performed By: #### C BC #### [facility] [address] [address] [address] Anthony Bonilla CO2 [Moles/Vol] 25.2 mmol/L Normal 21.0-32.0 [facility] Comment on above: Performed By: #### C BC #### [facility] [address] [address] [address] Anthony Bonilla Creatinine [Mass/Vol] 1.25 mg/dL Critically high 0.55-1.02 [facility] Comment on above: Performed By: #### C BC #### [facility] [address] [address] [address] Anthony Bonilla EGFR-AF THAI 49 mL/min/1.73m2 Critically low >=60 [facility] Comment on above: Performed By: #### C BC #### [facility] [address] [address] [address] Anthony Bonilla EGFR-NON AF THAI 41 mL/min/1.73m2 Critically low >=60 [facility] Comment on above: Performed By: #### C BC #### [facility] [address] [address] [address] Anthony Bonilla Globulin (S) [Mass/Vol] 3.4 g/dL Normal [facility] Comment on above: Performed By: #### C BC #### [facility] [address] [address] [address] Anthony Bonilla Glucose [Mass/Vol] 102 mg/dL Normal 74-106 [facility] Comment on above: Performed By: #### C BC #### [facility] [address] [address] [address] Anthony Bonilla Potassium [Moles/Vol] 4.7 mmol/L Normal 3.5-5.1 [facility] Comment on above: Performed By: #### C BC #### [facility] [address] [address] [address] Anthony Bonilla Protein [Mass/Vol] 6.6 g/dL Normal 6.4-8.2 [facility] Comment on above: Performed By: #### C BC #### [facility] [address] [address] [address] Anthony Bonilla Sodium [Moles/Vol] 134 mmol/L Critically low 136-145 [facility] Comment on above: Performed By: #### C BC #### [facility] [address] [place] [address] Dr. Anthony Bonilla Urea nitrogen [Mass/Vol] 33.0 mg/dL Critically high 7.0-18.0 [facility] Comment on above: Performed By: #### C BC #### [facility] [address] [address] [address] Anthony Bonilla Urea nitrogen/Creatinine [Mass ratio] 26.4 mg/mg Normal [facility] Comment on above: Performed By: #### C BC #### [facility] [address] [place] [address] Dr. Anthony Bonilla PROTIMEon 11-01-2021 INR Coag (PPP) [Relative time] 0.97 {INR} Normal [facility] Comment on above: Performed By: #### U RCX #### [facility] [address] [place] [address] Dr. Anthony Bonilla INR GUIDELINES SEE BELOW Normal [facility] Comment on above: Result Comment: MEGAN RED INR: 2.0 - 3.0 CONDITIONS NOT LISTED BELOW 2.5 - 3.5 FOR PROSTHETIC HEART VALVE REPLACEMENT 2.5 - 3.5 RECURRENT THROMBOSIS Performed By: #### U RCX #### [facility] [address] [address] [address] Anthony Bonilla PT Coag (PPP) [Time] 10.5 s Normal 9.0-11.6 [facility] Comment on above: Performed By: #### U RCX #### [facility] [address] [place] [address] Dr. Anthony Bonilla PTTon 11-01-2021 aPTT Coag (Bld) [Time] 27.8 s Normal 22.3-36.2 [facility] Comment on above: Performed By: #### U RCX #### [facility] [address] [place] [address] Dr. Anthony Bonilla TSHon 11-01-2021 TSH 1.011 uIU/mL Normal 0.358-3.74 0 [facility] Comment on above: Performed By: #### C BC #### [facility] [address] [place] [address] Dr. Anthony Bonilla URINE MICROSCOPIC ONLYon BACTERIA LARGE Abnormal NONE SEEN [facility] Comment on above: Performed By: #### U RCX #### [facility] [address] [place] [address] Dr. Anthony Bonilla Bacteria identified Cx Nom (U) INDICATED Normal [facility] Comment on above: Performed By: #### U RCX #### [facility] [address] [place] [address] Dr. Anthony Bonilla CAST NONE SEEN Normal NONE SEEN [facility] Comment on above: Performed By: #### U RCX #### [facility] [address] [place] [address] Dr. Anthony Bonilla Crystals LM Nom (Urine sed) NONE SEEN Normal NONE SEEN [facility] Comment on above: Performed By: #### U RCX #### [facility] [address] [place] [address] Dr. Anthony Bonilla Epithelial cells LM Ql (Urine sed) FEW Abnormal NONE SEEN /RARE [facility] Comment on above: Performed By: #### U RCX #### [facility] [address] [place] [address] Dr. Anthony Bonilla MUCOUS NONE SEEN Normal NONE SEEN [facility] Comment on above: Performed By: #### U RCX #### [facility] [address] [place] [address] Dr. Anthony Bonilla RBC 2-5 Abnormal 0-2 [facility] Comment on above: Performed By: #### U RCX #### [facility] [address] [place] [address] Dr. Anthony Bonilla WBC 0-2 Abnormal NONE SEEN [facility] Comment on above: Performed By: #### U RCX #### [facility] [address] [place] [address] Dr. Anthony Bonilla Covid-19 PCR (CVDTBH)on SARS-CoV-2 (COVID-19) RNA OH+probe Ql (Unsp spec) Detected Critically abnormal NOT DETECTED [facility] Comment on above: Result Comment: This test is not yet approved or cleared by the [place] FDA. When there are no FDA-approved or cleared tests available, and other criteria are met, FDA can make tests available under an emergency access mechanism called an Emergency Use Authorization (EUA). The EUA for this test is supported by the [place] of Health and Human Service's declaration that [...] used). Performed By: #### C BC #### [facility] [address] [place] [address] Dr. Anthony Bonilla Covid-19 PCR (CVDTBH)on SARS-CoV-2 (COVID-19) RNA OH+probe Ql (Unsp spec) Not detected Normal NOT DETECTED [facility] Comment on above: Result Comment: This test is not yet approved or cleared by the [place] FDA. When there are no FDA-approved or cleared tests available, and other criteria are met, FDA can make tests available under an emergency access mechanism called an Emergency Use Authorization (EUA). The EUA for this test is supported by the Complaint Supervisor of Health and Human Service's (HHS's) declaration [...] SARS-CoV-2. Performed By: #### U RCX #### [facility] [address] [address] [address] 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 Any time this information is not complete, it is the field human resources manager?s responsibility to query the physician. Based on [...] timely attention to this matter. Ambar Manley [employer] Chain Planner Ext [phone] [Electronically Signed on: 10/18/2019 21:40 EDT] Mi Licea DO [Verified on: 10/18/2019 21:40 EDT] Mi Licea DO [Transcribed on: 10/02/2019 11:06 EDT] [facility] Consent Formson 09-29-2019 Consent Forms [id number]#1.00OTGTI [facility] Medication Managementon 09-09 Medication Management [id number]#1.00OTGTI [facility] Outside Recordson 09-29-2019 Outside Records [id number]#1.00OTGTI [facility] Outside Records [id number]#1.00OTGTI [facility] Provider Orderson 09-29-2019 Provider Orders [id number]#1.00OTGTI [facility] Telemetry Stripson 0 Telemetry Strips [id number]#1.00OTI [facility] .Auto Diff 1on 2019 Auto [place] % 11 % Normal -12 [facility] Comment on above: Performed By: #### 1 [id number], [id number], [id number] #### [facility] (DEFAULT) [address] [place] [address] Baso Abs# 0.0 x10 Normal 0.0-0.2 [facility] Comment on above: Performed By: #### 1 [id number], [id number], [id number] #### [facility] (DEFAULT) [address] [place] [address] Basophils/100 WBC (Bld) 0.1 % Low 0.2-2.0 [facility] Comment on above: Performed By: #### 1 [id number], [id number], [id number] #### [facility] (DEFAULT) [address] [place] [address]184 Eos Abs# 0.2 x10 Normal 0.0-0.4 [facility] Comment on above: Performed By: #### 1 [id number], [id number], [id number] #### [facility] (DEFAULT) [address] [place] [address] Eosinophils/100 WBC (Bld) 2.2 % Normal 0.9-4.0 [facility] Comment on above: Performed By: #### 1 [id number], [id number], [id number] #### [facility] (DEFAULT) [address] [place] [address] Lymphocytes (Bld) [#/Vol] 0.6 x10 Low 1.3-2.9 [facility] Comment on above: Performed By: #### 1 [id number], [id number], [id number] #### [facility] (DEFAULT) [address] [place] [address] Lymphocytes/100 WBC (Bld) 6 % Low 14-48 [facility] Comment on above: Performed By: #### 1 [id number], [id number], [id number] #### [facility] (DEFAULT) [address] [place] [address] [place] Abs# 1.0 x10 High 0.0-0.8 [facility] Comment on above: Performed By: #### 1 [id number], [id number], [id number] #### [facility] (DEFAULT) [address] [place] [address] Neut Abs# 7.2 x10 Normal 1.5-9.2 [facility] Comment on above: Performed By: #### 1 [id number], [id number], [id number] #### [facility] (DEFAULT) [address] [place] [address] Neutrophils/100 WBC (Bld) 80 % Normal 44-88 [facility] Comment on above: Performed By: #### 1 [id number], [id number], [id number] #### [facility] (DEFAULT) [address] [place] [address] CBC w/ Auto Diffon [id number] Erythrocyte distribution width (RBC) [Ratio] 14.4 % Normal 11.5-15.0 [facility] Comment on above: Performed By: #### 1 [id number], [id number], [id number] #### [facility] (DEFAULT) [address] [place] [address] Hematocrit (Bld) [Volume fraction] 36.2 % Normal 33.7-40.4 [facility] Comment on above: Performed By: #### 1 [id number], [id number], [id number] #### [facility] (DEFAULT) [address] [place] [address] Hemoglobin (Bld) [Mass/Vol] 11.9 g/dL Normal 11.3-15.9 [facility] Comment on above: Performed By: #### 1 [id number], [id number], [id number] #### [facility] (DEFAULT) [address] [place] [address] Man Diff? Auto Normal [facility] Comment on above: Performed By: #### 1 [id number], [id number], [id number] #### [facility] (DEFAULT) [address] [place] [address] MCH (RBC) [Entitic mass] 33 pg Normal 24-34 [facility] Comment on above: Performed By: #### 1 [id number], [id number], 8598904 #### [facility] (DEFAULT) [address] [place] [address] MCHC (RBC) [Mass/Vol] 33 g/dL Normal 26-37 [facility] Comment on above: Performed By: #### 1 [id number], [id number], [id number] #### [facility] (DEFAULT) [address] [place] [address] MCV (RBC) [Entitic vol] 100 fL Normal 81-100 [facility] Comment on above: Performed By: #### 1 [id number], [id number], [id number] #### [facility] (DEFAULT) [address] [place] [address] Platelet mean volume (Bld) [Entitic vol] 9.6 fL Normal 6.3-10.2 [facility] Comment on above: Performed By: #### 1 [id number], [id number], 9392043 #### [facility] (DEFAULT) [address] [place] [address] Platelets (Bld) [#/Vol] 286 x10 Normal 138-427 [facility] Comment on above: Performed By: #### 1 [id number], [id number], [id number] #### [facility] (DEFAULT) [address] [place] [address] RBC (Bld) [#/Vol] 3.61 x10 Low 3.70-5.30 [facility] Comment on above: Performed By: #### 1 [id number], [id number], [id number] #### [facility] (DEFAULT) [address] [place] [address] WBC (Bld) [#/Vol] 9.0 x10 [facility] Comment on above: Performed By: #### 1 [id number], [id number], [id number] #### [facility] (DEFAULT) [address] [place] [address] Education Noteon 2019 Education Note Education Materials [...] done to rule of a DVT. Normal [facility] Extra Greenon 2019 Tube Collected Yes [facility] Comment on above: Performed By: #### 1 [id number], [id number], [id number] #### [facility] (DEFAULT) [address] [place] [address] Inpatient Patient Summaryon 2019 Inpatient Patient Summary [address] [address] Patient Discharge Instructions Name: VINCENT HSU : 1935 Patient Address: [address] [place] [address] Primary Care Provider: Name: Gypsy Mcmahon MD After you are discharged if you find you have any questions, please, call [phone] ext [phone] to speak to a nurse. Discharge Diagnosis: [...] drug addiction problems; contact the [facility] 31/08 Crisis Hotline -Text 4HOPE to 519498. If you received any narcotics, sedation, or [...] business decisions or sign any legal documents [facility] would like to thank you for allowing us to assist you with your healthcare needs. The following includes patient education materials and information regarding your injury/illness. HSUVINCENT CALDERON has been given the following list of follow-up instructions, prescriptions, and patient education materials: Follow-up Instructions With: Address: When: Mi Licea [address], [address] [place] [address] Business (2) 10/03/2019 8:30 AM With: Address: When: Gypsy Mcmahon [address] [place] [address], [facility] [place] [address] Business (1) Medications During the course of your visit, your medication list was updated with the most current information. The details of those changes are reflected below: New Medications Other Medications cefuroxime (cefuroxime 250 mg oral tablet) 1 tab(s) Oral 2 times a day for 7 Days. [facility]. Medications That Were Updated - Follow [...] for Disease Control and Prevention October 2013 [facility] Progress Note - Nurseon 09-09 [facility] [Entitic mass] Pt. transferred to bed times [...] on: 2019 11:52 EDT] Pan Regalado RN [facility] Progress Note - Nurse Pt. reports interm ittent left upper inner thigh grabbing pain. Pt. moans during these episodes. Tramadol given. Pt. repostioned for comfort. No change in the muscle spasms. Dr. Chacko informed in person. No orders received. [Electronically Signed on: 2019 09:32 EDT] Pan Regalado RN [Verified on: 2019 09:32 EDT] Pan Regalado RN [facility] Progress Note-Physicianon Progress Note-Physician DATE OF [...] up with Dr. Licea. PROGNOSIS: Good. Devorah DO Ivania JOB #: [id number] [Electronically Signed on: 2019 13:04 EDT] DEVORAH REDD DO [Verified on: 2019 13:04 EDT] DEVORAH REDD DO [Transcribed on: 2019 11:05 EDT] U Normal [facility] .Auto Diff 1on 09-27-2019 Auto [place] % 9 % Normal 1-12 [facility] Comment on above: Performed By: #### 1 [id number], 37099721, 6485036 #### [facility] (DEFAULT) [address] [place] [address] 49425 Baso Abs# 0.0 x10 Normal 0.0-0.2 [facility] Comment on above: Performed By: #### 1 [id number], 86608658, 0764407 #### [facility] (DEFAULT) [address] [place] [address] 78506 Basophils/100 WBC (Bld) 0.1 % Low 0.2-2.0 [facility] Comment on above: Performed By: #### 1 [id number], 71421127, 6739439 #### [facility] (DEFAULT) [address] [place] [address] 99399 Eos Abs# 0.2 x10 Normal 0.0-0.4 [facility] Comment on above: Performed By: #### 1 [id number], 54249957, 4417996 #### [facility] (DEFAULT) [address] [place] [address] 12931 Eosinophils/100 WBC (Bld) 1.6 % Normal 0.9-4.0 [facility] Comment on above: Performed By: #### 1 [id number], 59903073, 8325897 #### [facility] (DEFAULT) [address] [place] [address] Lymphocytes (Bld) [#/Vol] 0.5 x10 Low 1.3-2.9 [facility] Comment on above: Performed By: #### 1 [id number], 66817026, 7125245 #### [facility] (DEFAULT) [address] [place] [address] 37342 Lymphocytes/100 WBC (Bld) 4 % Low 14-48 [facility] Comment on above: Performed By: #### 1 [id number], 79131281, 0337104 #### [facility] (DEFAULT) [address] [place] [address] [place] Abs# 1.2 x10 High 0.0-0.8 [facility] Comment on above: Performed By: #### 1 [id number], 20504649, 9244768 #### [facility] (DEFAULT) [address] [place] [address] Neut Abs# 11.5 x10 High 1.5-9.2 [facility] Comment on above: Performed By: #### 1 [id number], 31223714, 7470510 #### [facility] (DEFAULT) [address] [place] [address] Neutrophils/100 WBC (Bld) 86 % Normal 44-88 [facility] Comment on above: Performed By: #### 1 [id number], 60599137, 2690246 #### [facility] (DEFAULT) [address] [place] [address] C Urineon 09-27-2019 C Urine Urine Culture [...] Verified Tobra S <=4 Verified Tri/Sulf S <=/38 Verified Normal [facility] Comment on above: Performed By: #### 7 [id number], 72203756, [id number] #### [facility] (DEFAULT) [address] [place] [address] CBC w/ Auto Diffon 0 Erythrocyte distribution width (RBC) [Ratio] 14.5 % Normal 11.5-15.0 [facility] Comment on above: Performed By: #### 1 [id number], 51579193, 5092820 #### [facility] (DEFAULT) [address] [place] [address] Hematocrit (Bld) [Volume fraction] 39.2 % Normal 33.7-40.4 [facility] Comment on above: Performed By: #### 1 [id number], 41072083, 3604982 #### [facility] (DEFAULT) [address] [place] [address] Hemoglobin (Bld) [Mass/Vol] 12.8 g/dL Normal 11.3-15.9 [facility] Comment on above: Performed By: #### 1 [id number], 38780681, 4229068 #### [facility] (DEFAULT) [address] [place] [address] Man Diff? Auto Normal [facility] Comment on above: Performed By: #### 1 [id number], 38625311, 2513299 #### [facility] (DEFAULT) [address] [place] [address] 97758 MCH (RBC) [Entitic mass] 33 pg Normal 24-34 [facility] Comment on above: Performed By: #### 1 [id number], 31111484, 0254395 #### [facility] (DEFAULT) [address] [place] [address] 10906 MCHC (RBC) [Mass/Vol] 33 g/dL Normal 26-37 [facility] Comment on above: Performed By: #### 1 [id number], 67066257, 3660887 #### [facility] (DEFAULT) [address] [place] [address] 82108 MCV (RBC) [Entitic vol] 101 fL High 81-100 [facility] Comment on above: Performed By: #### 1 [id number], 54773767, 4038662 #### [facility] (DEFAULT) [address] [place] [address] Platelet mean volume (Bld) [Entitic vol] 9.8 fL Normal 6.3-10.2 [facility] Comment on above: Performed By: #### 1 [id number], 07208680, 7975766 #### [facility] (DEFAULT) [address] [place] [address] 76177 Platelets (Bld) [#/Vol] 266 x10 Normal 138-427 [facility] Comment on above: Performed By: #### 1 [id number], 21010599, 7405615 #### [facility] (DEFAULT) [address] [place] [address] 31949 RBC (Bld) [#/Vol] 3.89 x10 Normal 3.70-5.30 [facility] Comment on above: Performed By: #### 1 [id number], 14687816, 9691610 #### [facility] (DEFAULT) [address] [place] [address] 85818 WBC (Bld) [#/Vol] 13.4 x10 [facility] Comment on above: Result Comment: Slid e Reviewed Performed By: #### 1 [id number], 52976660, 5347848 #### [facility] (DEFAULT) [address] [place] [address] Coding Summaryon 09-27-2019 Coding Summary CODING DATE: 020 [facility] STATUS: Home PAYOR: Medicare ADMIT DX: REASON [...] Marisela Lawrence Date Saved: 09/27/2019 11:11 am [facility] Extra Greenon 09-27-2019 Tube Collected Yes [facility] Comment on above: Performed By: #### 1 [id number], 84746349, 9980564 #### [facility] (DEFAULT) [address] [place] [address] 11144 Nutrition Noteon 09-27-2019 Nutrition Note Pt eating poorly, av g less than 30% of meals per intake records. Supplements also taken sporadically. Suspect pain and constipation may be playing a role. No new wts. Last BM 09/23. Possible discharge later today. Will continue to follow and monitor need to adjust supplements ie. offer to make into a milkshake, [facility] Pharmacy Noteon 09-27-2019 Pharmacy Note I [...] [Verified on: 09/27/2019 14:01 EDT] Virgie Santos [facility] Progress Note - Nurseon 09-08 Progress Note - Nurse 1800 one dulcolax suppository administered, will continue to monitor. [Electronically Signed on: 09/27/2019 18:03 EDT] Luli Mclain RN [Verified on: 09/27/2019 18:03 EDT] Luli Mclain RN [facility] Progress Note - Nurse 1710 tramadol 50mg po administered for #10 left upper thigh pain , will continue to monitor. [Electronically Signed on: 09/27/2019 17:09 EDT] Luli Mclain RN [Verified on: 09/27/2019 17:09 EDT] Luli Mclain RN [facility] Progress Note-Physicianon Progress Note-Physician DATE OF [...] PROGNOSIS: Good. Devorah Redd DO JOB #: [id number] [Electronically Signed on: 2019 10:28 EDT] DEVORAH REDD DO [Verified on: 2019 10:28 EDT] DEVORAH REDD DO [Transcribed on: 09/27/2019 13:52 EDT] U Normal [facility] .Auto Diff 1on 09-26-2019 Auto [place] % 9 % Normal 12 [facility] Comment on above: Performed By: #### 1 [id number], 30345680, 7695542 #### [facility] (DEFAULT) [address] [place] [address] Baso Abs# 0.0 x10 Normal 0.0-0.2 [facility] Comment on above: Performed By: #### 1 [id number], 51148677, 3915128 #### [facility] (DEFAULT) [address] [place] [address] 20030 Basophils/100 WBC (Bld) 0.1 % Low 0.2-2.0 [facility] Comment on above: Performed By: #### 1 [id number], 67791368, 7701445 #### [facility] (DEFAULT) [address] [place] [address] 14763 Eos Abs# 0.2 x10 Normal 0.0-0.4 [facility] Comment on above: Performed By: #### 1 [id number], 24793812, 4835553 #### [facility] (DEFAULT) [address] [place] [address] 48578 Eosinophils/100 WBC (Bld) 2.0 % Normal 0.9-4.0 [facility] Comment on above: Performed By: #### 1 [id number], 28163195, 9124278 #### [facility] (DEFAULT) [address] [place] [address] 51818 Lymphocytes (Bld) [#/Vol] 0.6 x10 Low 1.3-2.9 [facility] Comment on above: Performed By: #### 1 [id number], 45385525, 0839539 #### [facility] (DEFAULT) [address] [place] [address] 79831 Lymphocytes/100 WBC (Bld) 6 % Low 14-48 [facility] Comment on above: Performed By: #### 1 [id number], 73150860, 3595955 #### [facility] (DEFAULT) [address] [place] [address] 63800 [place] Abs# 0.9 x10 High 0.0-0.8 [facility] Comment on above: Performed By: #### 1 [id number], 29123724, 8049589 #### [facility] (DEFAULT) [address] [place] [address] 05867 Neut Abs# 8.3 x10 Normal 1.5-9.2 [facility] Comment on above: Performed By: #### 1 [id number], 83978390, 4046357 #### [facility] (DEFAULT) [address] [place] [address] Neutrophils/100 WBC (Bld) 83 % Normal 44-88 [facility] Comment on above: Performed By: #### 1 [id number], 38554363, 8209886 #### [facility] (DEFAULT) [address] [place] [address] Standardon 09-26-2019 eGFR Non AA 48 mL/min/1.73m2 [facility] Comment on above: Performed By: #### 1 [id number], 07494667, 3651271 #### [facility] (DEFAULT) [address] [place] [address] eGFR AA 58 mL/min/1.73m2 [facility] Comment on above: Result Comment: Typewriter Aligner kody Kidney disease could be indicated at eGFRs of less than 60 ml/min/1.73m2. Kidney Failure is indicated at less than 15 ml/min/1.73m2 Performed By: #### 1 [id number], 37766468, 2112245 #### [facility] (DEFAULT) [address] [place] [address] 17324 Anion gap [Moles/Vol] 10.0 mmol/L Normal 5.0-19.0 [facility] Comment on above: Performed By: #### 1 [id number], 43608751, 7550094 #### [facility] (DEFAULT) [address] [place] [address] 09503 Calcium [Mass/Vol] 8.8 mg/dL Low 8.9-10.3 [facility] Comment on above: Performed By: #### 1 [id number], 84818723, 3435330 #### [facility] (DEFAULT) [address] [place] [address] 52058 Chloride [Moles/Vol] 103 mmol/L Normal 101-111 [facility] Comment on above: Performed By: #### 1 [id number], 71099641, 8734558 #### [facility] (DEFAULT) [address] [place] [address] 47616 CO2 [Moles/Vol] 28 mmol/L Normal 21-32 [facility] Comment on above: Performed By: #### 1 [id number], 57749230, 6569765 #### [facility] (DEFAULT) [address] [place] [address] 18526 Creatinine [Mass/Vol] 1.09 mg/dL Normal 0.60-1.30 [facility] Comment on above: Performed By: #### 1 [id number], 94994140, 7186498 #### [facility] (DEFAULT) [address] [place] [address] 10979 Glucose [Mass/Vol] 94.0 mg/dL Normal 74.0-118.0 [facility] Comment on above: Performed By: #### 1 [id number], 44676839, 2603674 #### [facility] (DEFAULT) [address] [place] [address] 57175 Osmolality [Osmolality] 276 mOsm/L [facility] Comment on above: Performed By: #### 1 [id number], 46559997, 5498506 #### [facility] (DEFAULT) [address] [place] [address] 68698 Potassium [Moles/Vol] 4.4 mmol/L Normal 3.6-5.1 [facility] Comment on above: Performed By: #### 1 601188183, 15970600, 1443402 #### [facility] (DEFAULT) [address] [place] [address] 08316 Sodium [Moles/Vol] 137.0 mmol/L Normal 136.0-144 . 0 [facility] Comment on above: Performed By: #### 1 [id number], 60028789, 3955563 #### [facility] (DEFAULT) [address] [place] [address] 99694 Urea nitrogen [Mass/Vol] 19 mg/dL Normal 8-26 [facility] Comment on above: Performed By: #### 1 [id number], 22988158, 1040865 #### [facility] (DEFAULT) [address] [place] [address] Urea nitrogen/Creatinine [Mass ratio] 17.0 mg/mg High 4.6-16.2 [facility] Comment on above: Performed By: #### 1 [id number], 12261825, 6924525 #### [facility] (DEFAULT) [address] [place] [address] CBC w/ Auto Diffon 0 Erythrocyte distribution width (RBC) [Ratio] 14.4 % Normal 11.5-15.0 [facility] Comment on above: Performed By: #### 1 [id number], 88354925, 7087947 #### [facility] (DEFAULT) [address] [place] [address] Hematocrit (Bld) [Volume fraction] 35.5 % Normal 33.7-40.4 [facility] Comment on above: Performed By: #### 1 [id number], 57678116, 3984034 #### [facility] (DEFAULT) [address] [place] [address] Hemoglobin (Bld) [Mass/Vol] 11.6 g/dL Normal 11.3-15.9 [facility] Comment on above: Performed By: #### 1 560933037, 04551659, 4099757 #### [facility] (DEFAULT) [address] [place] [address] Man Diff? Auto Normal [facility] Comment on above: Performed By: #### 1 [id number], 94227046, 4900758 #### [facility] (DEFAULT) [address] [place] [address] MCH (RBC) [Entitic mass] 33 pg Normal 24-34 [facility] Comment on above: Performed By: #### 1 612937967, 16233817, 8195861 #### [facility] (DEFAULT) [address] [place] [address] MCHC (RBC) [Mass/Vol] 33 g/dL Normal 26-37 [facility] Comment on above: Performed By: #### 1 [id number], 50248917, 0184699 #### [facility] (DEFAULT) [address] [place] [address] 48357 MCV (RBC) [Entitic vol] 102 fL High 81-100 [facility] Comment on above: Performed By: #### 1 850522355, 91484848, 2322717 #### [facility] (DEFAULT) [address] [place] [address] 02949 Platelet mean volume (Bld) [Entitic vol] 9.8 fL Normal 6.3-10.2 [facility] Comment on above: Performed By: #### 1 710882460, 03675669, 2777985 #### [facility] (DEFAULT) [address] [place] [address] 03341 Platelets (Bld) [#/Vol] 236 x10 Normal 138-427 [facility] Comment on above: Performed By: #### 1 236941389, 77271076, 5510834 #### [facility] (DEFAULT) [address] [place] [address] 89892 RBC (Bld) [#/Vol] 3.49 x10 Low 3.70-5.30 [facility] Comment on above: Performed By: #### 1 472175724, 66429658, 1375882 #### [facility] (DEFAULT) [address] [place] [address] 80018 WBC (Bld) [#/Vol] 10.0 x10 [facility] Comment on above: Performed By: #### 1 [id number], 96043431, 6360638 #### [facility] (DEFAULT) [address] [place] [address] 06901 Consent Formson 09-26-2019 Consent Forms [id number]#[id number] FF [facility] Consultation/Specialist Note on 09-26-2019 Consultation/Specialis t [...] [Verified on: 09/26/2019 07:35 EDT] SUDHEER PIKE [facility] Progress Note - Nurseon 08-1 Progress Note - Nurse On 09/25/2019 this [...] 09/26/2019 07:45 EDT] Twila Cruz RN Normal [facility] .Auto Diff 1on 09-25-2019 Auto [place] % 8 % Normal 1-12 [facility] Comment on above: Performed By: #### 1 [id number], 89462179, 3352086 #### [facility] (DEFAULT) [address] [place] [address] Baso Abs# 0.0 x10 Normal 0.0-0.2 [facility] Comment on above: Performed By: #### 1 [id number], 97241131, 3218451 #### [facility] (DEFAULT) [address] [place] [address] Basophils/100 WBC (Bld) 0.2 % Normal 0.2-2.0 [facility] Comment on above: Performed By: #### 1 [id number], 41692669, 6200613 #### [facility] (DEFAULT) [address] [place] [address] Eos Abs# 0.1 x10 Normal 0.0-0.4 [facility] Comment on above: Performed By: #### 1 [id number], 14850836, 4378872 #### [facility] (DEFAULT) [address] [place] [address] 04843 Eosinophils/100 WBC (Bld) 0.5 % Low 0.9-4.0 [facility] Comment on above: Performed By: #### 1 743297633, 34281205, 8355400 #### [facility] (DEFAULT) [address] [place] [address] Lymphocytes (Bld) [#/Vol] 1.1 x10 Low 1.3-2.9 [facility] Comment on above: Performed By: #### 1 390476991, 95154057, 1823886 #### [facility] (DEFAULT) [address] [place] [address] Lymphocytes/100 WBC (Bld) 9 % Low 14-48 [facility] Comment on above: Performed By: #### 1 [id number], 51850517, 6469264 #### [facility] (DEFAULT) [address] [place] [address] [place] Abs# 1.0 x10 High 0.0-0.8 [facility] Comment on above: Performed By: #### 1 [id number], 75854907, 3455316 #### [facility] (DEFAULT) [address] [place] [address] Neut Abs# 9.6 x10 High 1.5-9.2 [facility] Comment on above: Performed By: #### 1 957324549, 95141343, 9256317 #### [facility] (DEFAULT) [address] [place] [address] Neutrophils/100 WBC (Bld) 82 % Normal 44-88 [facility] Comment on above: Performed By: #### 1 636304090, 93128529, 1935477 #### [facility] (DEFAULT) [address] [place] [address] ABORhon 09-25-2019 ABO and Rh group Nom (Bld) Hx Check: Not Found Anti-A: 4+ Anti-B: 0 Anti-D: 4+ DCon: NT A1: 0 B: 4+ ABORh Interp: A POS [facility] Comment on above: Performed By: #### 7 [id number], 83224034, [id number] #### [facility] (DEFAULT) [address] [place] [address] 90779 ABORh Retypeon 09-25-2019 ABO and Rh group Nom (Bld) Ordered by Discern. Anti-A: 4+ Anti-B: 0 Anti-D: 4+ DCon: NT A1: 0 B: 4+ ABORh Retype: A POS [facility] Comment on above: Performed By: #### 7 [id number], 67650229, [id number] #### [facility] (DEFAULT) [address] [place] [address] 91494 ABSC Gelon 09-25-2019 ABSC Gel Negative Normal [facility] Comment on above: Performed By: #### 7 [id number], 98390509, [id number] #### [facility] (DEFAULT) [address] [place] [address] 00616 Anesthesia Noteon 09-25-2019 Anesthesia Note Patient: DONTAE [...] risk of pressure sore / SNOMED CT 045656911 / Confirmed CAD (coronary artery disease) / SNOMED CT 70349762 / Confirmed Hyperlipidemia / SNOMED CT 72129424 / Confirmed Hypertension / SNOMED CT 3122553112 / Confirmed Skin cancer / SNOMED CT 3927685840 / Confirmed Osteoporosis / SNOMED CT 702358888 / Confirmed Restless leg syndrome / SNOMED CT 36919675 / Confirmed Resolved: GERD (gastroesophageal reflux disease) / SNOMED CT 846508870 Histories Family History: Cancer Sister Brother Aneurysm Mother CHF - Congestive heart failure Father CA (myocardial infarction) Sister Procedure history: Umbilical hernia (0821903987). Arthroscopy (54249506). Comments: 08/29/2019 12:57 Dionne Mccarty RN arthroscopy of knee Cholecystectomy (31597688). Hysterectomy (088473189). Cataract (384758090). Shoulder (86729735). Comments: 08/29/2019 12:58 Dionne Mccarty RN arthroscopy CABG (Coronary artery bypass grafting) planned (178383418). Colonoscopy (717488095). EGD - Esophagogastroduodenoscop y (7234888071). Meniscectomy (449550315). Hip arthroplasty (246407263). Social History Electronic Cigarette/Vaping Assessment Electronic Cigarette [...] axis dev, LAFB, RV conduction delay. Plan [place] [employer]#(ASA) physical status classification: Class III. Anesthetic Preoperative Plan Anesthesia: Regional Spinal. Anesthetic plan, risks, benefits, and alternatives discussed with the patient and/or family. Patient verbalized understanding. Informed consent was given. Consent was signed by the patient. [Electronically Signed on: 09/25/2019 10:10 EDT] Enrike Mora MD [Verified on: 09/25/2019 10:10 EDT] Enrike Mora MD [facility] Blood Bank IDon 09-25-2019 Blood Bank ID BBID: [id number] [facility] Comment on above: Performed By: #### 7 [id number], 26928784, [id number] #### [facility] (DEFAULT) [address] [place] [address] 55654 CBC w/ Auto Diffon 0 Erythrocyte distribution width (RBC) [Ratio] 14.4 % Normal 11.5-15.0 [facility] Comment on above: Performed By: #### 1 [id number], 79974775, 2318601 #### [facility] (DEFAULT) [address] [place] [address] Hematocrit (Bld) [Volume fraction] 39.2 % Normal 33.7-40.4 [facility] Comment on above: Performed By: #### 1 788023189, 37165359, 2437579 #### [facility] (DEFAULT) [address] [place] [address] Hemoglobin (Bld) [Mass/Vol] 12.8 g/dL Normal 11.3-15.9 [facility] Comment on above: Performed By: #### 1 696805796, 38072830, 9647099 #### [facility] (DEFAULT) [address] [place] [address] Man Diff? Auto Normal [facility] Comment on above: Performed By: #### 1 008459246, 33097383, 5531200 #### [facility] (DEFAULT) [address] [place] [address] 52251 MCH (RBC) [Entitic mass] 33 pg Normal 24-34 [facility] Comment on above: Performed By: #### 1 089223247, 04567902, 8704576 #### [facility] (DEFAULT) [address] [place] [address] 32208 MCHC (RBC) [Mass/Vol] 33 g/dL Normal 26-37 [facility] Comment on above: Performed By: #### 1 975586446, 06695746, 9496485 #### [facility] (DEFAULT) [address] [place] [address] 28969 MCV (RBC) [Entitic vol] 102 fL High 81-100 [facility] Comment on above: Performed By: #### 1 [id number], 26141675, 4121191 #### [facility] (DEFAULT) [address] [place] [address] 88350 Platelet mean volume (Bld) [Entitic vol] 9.4 fL Normal 6.3-10.2 [facility] Comment on above: Performed By: #### 1 419666440, 30073606, 7401126 #### [facility] (DEFAULT) [address] [place] [address] 73088 Platelets (Bld) [#/Vol] 272 x10 Normal 138-427 [facility] Comment on above: Performed By: #### 1 504309668, 76165105, 6985991 #### [facility] (DEFAULT) [address] [place] [address] 21718 RBC (Bld) [#/Vol] 3.85 x10 Normal 3.70-5.30 [facility] Comment on above: Performed By: #### 1 286156974, 48206363, 0570752 #### [facility] (DEFAULT) [address] [place] [address] 08740 WBC (Bld) [#/Vol] 11.7 x10 High 3.5-10.5 [facility] Comment on above: Performed By: #### 1 [id number], 62900472, 6961049 #### [facility] (DEFAULT) [address] [place] [address] 98397 Extra Chauncey 09-25-2019 Tube Collected Yes [facility] Comment on above: Performed By: #### 7 862608, 76663503, [id number] #### [facility] (DEFAULT) [address] [place] [address] 05404 H&Hon 09-25-2019 Hematocrit (Bld) [Volume fraction] 39.9 % Normal 33.7-40.4 [facility] Comment on above: Performed By: #### 7 635675, 68302182, [id number] #### [facility] (DEFAULT) [address] [place] [address] 00701 Hemoglobin (Bld) [Mass/Vol] 12.7 g/dL Normal 11.3-15.9 [facility] Comment on above: Performed By: #### 7 033917, 10731972, [id number] #### [facility] (DEFAULT) [address] [place] [address] History and Physicalon 09-24 History and Physical [id number] FF Normal [facility] MAGR Intraoperative Recordon 09-25-2019 MAGR Intraoperative Record MAGR Intra-Op Record Summary Primary Physician: Mi Licea DO Finalized Date/Time: 09/25/19 15:04:11 Pt. Name: VINCENT HSU Jean Carlos Crisostomo/Sex: 1935 FEMALE Med Rec #: [id number] Physician: Mi Licea DO Financial #: [id number] Pt. Type: I Room/Bed: [facility] Admit/Disch: 09/25/19 06:52:00 - Institution: Case Times [...] Role Performed Surgeon - Primary Anesthesiologist of Proofreader Record Time In 09/25/19 09:37:00 09/25/19 09:37:00 09/25/19 09:37:00 Time Out 09/25/19 11:50:00 09/25/19 11:50:00 09/25/19 11:50:00 Procedure Arthroplasty Total Arthroplasty Total Arthroplasty Total Hip(Left) Hip(Left) Hip(Left) Last Modified By: Marj Sullivan RN, Stephanie RN Sauer, Stephanie RN 09/25/19 12:54:58 09/25/19 12:54:58 09/25/19 12:54:58 Entry 4 Entry 5 Entry 6 Case Attendee Montrell MCKEON, Shantal Moreira Leigh-Ann CST Role Performed Scrub Personnel Cuff Setter Overlock Cuff Setter Overlock Time In 09/25/19 09:37:00 09/25/19 09:37:00 09/25/19 [...] Primary Procedure Yes Primary Surgeon Mi Licea Eduardo DO Surgeon Comment LEFT TOTAL HIP [...] Implant Information Implant/Explant 09/25/19 10:50:00 09/25/19 10:50:00 08/17/20 10:50:00 Date/Time Implanted/Explanted Mi Licea James Huddleston, James By: Eduardo Schultzlourdes Vallejo DO Size 32MM 50MM 6.5 X 30MM 6.5 X 15MM Outdoor Adventure Instructor DEPUY DEPUY DEPUY Catalog # Lot Number [id number] Expiration Date 05/08/24 03/10/29 01/07/29 Serial Number [id number] REF 1217-30-500 REF 1217-15-500 Device Identifier Human Readable EDDA Machine Readable EDDA MR Class Implant Usage Data Site Hip L Hip L Hip L Quantity 1 1 1 Reason for Explant Reason Not Retained Explant Disposition Pipe Testing Technician Sterility External Indicator Result Internal Indicator Results [...] DO Size 6.5 X 15MM 50MM PS Outdoor Adventure Instructor DEPUY DEPUY DEPUY Catalog # Lot Number [id number] Expiration Date 11/07/28 04/07/29 04/07/29 Serial Number REF 1217-15-500 REF 1217-32-050 REF 1246-03-000 Device Identifier Human Readable EDDA Machine Readable EDDA MR Class Implant Usage Data Site Hip L Hip L Hip L Quantity 1 1 1 Reason for Explant Reason Not Retained Explant Disposition Pipe Testing Technician Sterility External Indicator Result Internal Indicator Results [...] SHORT NECK COLLAR 01/21 TAPER SIZE 11 Outdoor Adventure Instructor DEPUY DEPUY Catalog # Lot Number [id number] Expiration Date 02/08/24 02/08/24 Serial Number REF [id number] REF 1365-22-000 Device Identifier Human Readable EDDA Machine Readable EDDA MR Class Implant Usage Data Site Hip L Hip L Quantity 1 1 Reason for Explant Reason Not Retained Explant Disposition Pipe Testing Technician Sterility External Indicator Result Internal Indicator Results [...] Unfinalizing 09/25/19 15:04 MARSHA Modify Pick List [facility] MAGR PACU Recordon 0 MAGR PACU Record MAGR PACU Record Sum vincent Primary Physician: Mi Licea DO Finalized Date/Time: 09/25/19 12:53:39 Pt. Name: ARACELIS VINCENT Cha/Sex: 1935 FEMALE Med Rec #: [id number] Physician: Mi Licea DO Financial #: [id number] Pt. Type: I Room/Bed: 221/1 Admit/Disch: 09/25/19 06:52:00 - Institution: PACU Case Times MAGR Entry 1 In PACU I 09/25/19 11:50:00 Discharge from PACU 09/25/19 12:40:00 I Last Modified By: Dionne Yun RN 09/25/19 12:53:35 Finalized By: Dionne Yun RN Document Signatures Signed By: Dionne Yun RN 09/25/19 12:53 [facility] MAGR Preoperative Recordon 0 09-25-2019 MAGR Preoperative Record MAGR Pre-Op Record Summary Primary Physician: Mi Licea DO Finalized Date/Time: 09/25/19 11:58:52 Pt. Name: ARACELIS VINCENT Cha/Sex: 1935 FEMALE Med Rec #: [id number] Physician: Mi Licea DO Financial #: [id number] Pt. Type: I Room/Bed: 221/1 Admit/Disch: 09/25/19 [...] Signed By: Dionne Yun RN 09/25/19 11:58 [facility] Nutrition Noteon 09-25-2019 Nutrition Note Pt admitted for sche duled Lt total hip sx; placed on a Regular diet as tolerated w/ post op supplements BID along w/ usual vitamin/mineral supplementation. Nutritional supplements adjusted to what's available in house. Per major gifts officer assessment, Pt reports wt loss of 2-13lb, [...] associates to offer prunes/prune alfred q am. 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 [Electronically Signed on: 09/25/2019 19:51 EDT] Nancy KAYLYNNTwila [Verified on: 09/25/2019 19:51 EDT] Twila Cruz RN [facility] UA [id number] 09-25-2019 RBC (U) [#/Vol] 0-2 [facility] Comment on above: Order Comment: Urina lysis Microscopic order added on by CytoVale Expert Rules system. Performed By: #### 7 [id number], [id number], [id number] #### [facility] (DEFAULT) [address] [place] [address] UA Bacteria 4+ [facility] Comment on above: Order Comment: Urina lysis Microscopic order added on by [employer] Expert Rules system. Performed By: #### 7 342005, [id number], [id number] #### [facility] (DEFAULT) [address] [place] [address] UA Squam Epi Rare [facility] Comment on above: Order Comment: Urina lysis Microscopic order added on by [employer] Expert Rules system. Performed By: #### 7 076535, [id number], [id number] #### [facility] (DEFAULT) [address] [place] [address] UA WBC 0-2 [facility] Comment on above: Order Comment: Urina lysis Microscopic order added on by [employer] Expert Rules system. Performed By: #### 7 599097, [id number], [id number] #### [facility] (DEFAULT) [address] [place] [address] UA w Culture if Ind Standard on 09-25-2019 Breakpoint UA [facility] Comment on above: Order Comment: sim insert Performed By: #### 7 882263, [id number], [id number] #### [facility] (DEFAULT) [address] [place] [address] 14521 Color (U) Yellow Normal [facility] Comment on above: Order Comment: sim insert Performed By: #### 7 438627, [id number], [id number] #### [facility] (DEFAULT) [address] [place] [address] 12750 Culture? Indicated [facility] Comment on above: Order Comment: sim insert Performed By: #### 7 754254, [id number], [id number] #### [facility] (DEFAULT) [address] [place] [address] 00318 Glucose (U) [Mass/Vol] Negative Normal [facility] Comment on above: Order Comment: sim insert Performed By: #### 7 431674, [id number], [id number] #### [facility] (DEFAULT) [address] [place] [address] 55419 Ketones Ql (U) Negative Normal [facility] Comment on above: Order Comment: sim insert Performed By: #### 7 148829, [id number], [id number] #### [facility] (DEFAULT) [address] [place] [address] 24824 Micro? Indicated [facility] Comment on above: Order Comment: sim insert Performed By: #### 7 712304, [id number], [id number] #### [facility] (DEFAULT) [address] [place] [address] 44466 UA Bilirubin Negative Normal [facility] Comment on above: Order Comment: sim insert Performed By: #### 7 831989, [id number], [id number] #### [facility] (DEFAULT) [address] [place] [address] 51497 UA Blood Negative Normal NEGATIVE [facility] Comment on above: Order Comment: sim insert Performed By: #### 7 514641, [id number], [id number] #### [facility] (DEFAULT) [address] [place] [address] 53267 UA Clarity CLEAR Normal CLEAR [facility] Comment on above: Order Comment: sim insert Performed By: #### 7 578562, [id number], [id number] #### [facility] (DEFAULT) [address] [place] [address] 74566 UA Leuk Est SMALL Abnormal NEGATIVE [facility] Comment on above: Order Comment: sim insert Performed By: #### 7 319661, 79786917, [id number] #### [facility] (DEFAULT) [address] [place] [address] 07020 UA Nitrite Positive Abnormal NEGATIVE [facility] Comment on above: Order Comment: sim insert Performed By: #### 7 279129, 28159715, [id number] #### [facility] (DEFAULT) [address] [place] [address] 01009 UA pH 7.0 Normal 5-8 [facility] Comment on above: Order Comment: sim insert Performed By: #### 7 541697, [id number], [id number] #### [facility] (DEFAULT) [address] [place] [address] 82698 UA Protein Negative Normal NEGATIVE [facility] Comment on above: Order Comment: sim insert Performed By: #### 7 251514, [id number], [id number] #### [facility] (DEFAULT) [address] [place] [address] 61650 UA Spec Grav 1.020 Normal 1.001-1.[address] [place] [address] Comment on above: Order Comment: sim insert Performed By: #### 7 989856, 15861570, [id number] #### [facility] (DEFAULT) [address] [place] [address] 43982 UA Urobilinogen 0.2 mg/dL Normal 0.2-1.0 [facility] Comment on above: Order Comment: sim insert Performed By: #### 7 232601, 73846630, [id number] #### [facility] (DEFAULT) [address] [place] [address] 97344 Urine Source Clean Catch Normal [facility] Comment on above: Order Comment: sim insert Performed By: #### 7 347884, 22328076, [id number] #### [facility] (DEFAULT) [address] [place] [address] [place] [address] XR Hip Complete Lefton 09-24 XR Hip [...] MD 09/25/19 3:55 pm Technologist: OCHOA NAZARIO [facility] Patient Handouton 09-24-2019 Patient Handout [facility] Progress Note - Nurseon 09-08 Progress Note - Nurse Spoke with pt esthelagonzález rding arrival time of 0700 and NPO status. Verbalized understanding. [Electronically Signed on: 09/22/2019 09:47 EDT] Kimberley Holden RN [Verified on: 09/22/2019 09:47 EDT] Kimberley Holden RN [facility] SARS-CoV-2 (COVID-19) PCRon 09-22-2019 COVID-19 PCR Not Detected Normal Not Detected [facility] Comment on above: Performed By: #### 7 268003, [id number], [id number] #### [facility] (DEFAULT) [address] [place] [address] 34229 Employed in healthcare? Unknown [facility] Comment on above: Performed By: #### 7 829641, 87048895, [id number] #### [facility] (DEFAULT) [address] [place] [address] 60544 Group care resident? Unknown [facility] Comment on above: Performed By: #### 7 173722, 95725085, [id number] #### [facility] (DEFAULT) [address] [place] [address] 75399 Hospitalized due to COVID-19? Unknown [facility] Comment on above: Performed By: #### 7 245962, 57696708, [id number] #### [facility] (DEFAULT) [address] [place] [address] 19263 In ICU? Unknown [facility] Comment on above: Performed By: #### 7 319595, 63132462, [id number] #### [facility] (DEFAULT) [address] [place] [address] 85287 status? Unknown [facility] Comment on above: Performed By: #### 7 797364, [id number], [id number] #### [facility] (DEFAULT) [address] [place] [address] 03473 Symptomatic as defined by CDC? Unknown [facility] Comment on above: Performed By: #### 7 533509, [id number], [id number] #### [facility] (DEFAULT) [address] [place] [address] 66411 Coding Summaryon 09-13-2019 Coding Summary CODING DATE: 020 FINAL [facility] STATUS: Home PAYOR: Medicare APC DESCRIPTION 5733 Level 3 Minor Procedures ADMIT DX: REASON FOR VISIT DX: Z01.818 Encounter for other preprocedural examination I10 Essential (primary) hypertension I25.10 Atherosclerotic heart disease of [place] coronary artery without angina pectoris FINAL DX: PRINCIPAL: Z01.818 Encounter for other preprocedural examination SECONDARY: I10 Essential (primary) hypertension I25.10 Atherosclerotic heart disease of [place] coronary artery without angina pectoris K21.9 Gastro-esophageal [...] Marisela Lawrence Date Saved: 09/13/2019 09:18 am [facility] Coding Summaryon 09-06-2019 Coding Summary CODING DATE: 020 [facility] STATUS: Home PAYOR: Medicare APC DESCRIPTION 5733 Level 3 Minor Procedures ADMIT DX: REASON FOR VISIT DX: Z01.818 Encounter for other preprocedural examination I10 Essential (primary) hypertension I25.10 Atherosclerotic heart disease of [place] coronary artery without angina pectoris FINAL DX: PRINCIPAL: Z01.818 Encounter for other preprocedural examination SECONDARY: I10 Essential (primary) hypertension I25.10 Atherosclerotic heart disease of [place] coronary artery without angina pectoris K21.9 Gastro-esophageal reflux disease without esophagitis PYMT PROC APC STAT DESCRIPTION DOCTOR NAME DATE NOTE: The code number assigned matches the documented diagnosis and / or procedure in the patient's chart. However, the narrative phrase printed from the coding software may appear abbreviated, or result in slightly different terminology. Coded By: Marisela Lawrence Date Saved: 09/06/2019 09:20 am [facility] Progress Note - Nurseon 08-09 Progress Note - Nurse chart reviewed per Dr Akbar anesthesiologist, and cleared for surgery on 09/25/2019 [Electronically Signed on: 09/04/2019 14:30 EDT] Nimco Albarado RN [Verified on: 09/04/2019 14:30 EDT] Nimco Albarado RN [facility] Progress Note - Nurse Xin at Dr Aydin rosario notified that pt has positive urine culture. [Electronically Signed on: 09/04/2019 13:37 EDT] Dionne Yun RN [Verified on: 09/04/2019 13:37 EDT] Dionne Yun RN [facility] Provider Orderson 09-04-2019 Provider Orders [id number] [facility] C Urineon 09-03-2019 C Urine Urine [...] S <=4 Verified Tri/Sulf S <=2/38 Verified [facility] Comment on above: Performed By: #### 1 [id number], [id number], [id number] #### [facility] (DEFAULT) [address] [place] [address] C MRSA Screenon 09-02-2019 C MRSA Screen Negative [facility] Comment on above: Performed By: #### 1 [id number] #### [facility] (DEFAULT) [address] [place] [address] .Auto Diff 1on 09-01-2019 Auto [place] % 10 % Normal 1-12 [facility] Comment on above: Performed By: #### 7 513259, [id number], [id number] #### [facility] (DEFAULT) [address] [place] [address] 30042 Baso Abs# 0.0 x10 Normal 0.0-0.2 [facility] Comment on above: Performed By: #### 7 430330, 63253376, [id number] #### [facility] (DEFAULT) [address] [place] [address] 59348 Basophils/100 WBC (Bld) 0.3 % Normal 0.2-2.0 [facility] Comment on above: Performed By: #### 7 713024, 32710080, [id number] #### [facility] (DEFAULT) [address] [place] [address] 53206 Eos Abs# 0.1 x10 Normal 0.0-0.4 [facility] Comment on above: Performed By: #### 7 410840, 79775073, [id number] #### [facility] (DEFAULT) [address] [place] [address] 89391 Eosinophils/100 WBC (Bld) 0.9 % Normal 0.9-4.0 [facility] Comment on above: Performed By: #### 7 128015, 27892308, [id number] #### [facility] (DEFAULT) [address] [place] [address] 52869 Lymphocytes (Bld) [#/Vol] 1.0 x10 Low 1.3-2.9 [facility] Comment on above: Performed By: #### 7 353180, 32283629, [id number] #### [facility] (DEFAULT) [address] [place] [address] 51469 Lymphocytes/100 WBC (Bld) 10 % Low 14-48 [facility] Comment on above: Performed By: #### 7 608093, 02423963, [id number] #### [facility] (DEFAULT) [address] [place] [address] 41668 [place] Abs# 1.0 x10 High 0.0-0.8 [facility] Comment on above: Performed By: #### 7 900077, 33430379, [id number] #### [facility] (DEFAULT) [address] [place] [address] Neut Abs# 8.0 x10 Normal 1.5-9.2 [facility] Comment on above: Performed By: #### 7 940815, 09108023, [id number] #### [facility] (DEFAULT) [address] [place] [address] Neutrophils/100 WBC (Bld) 79 % Normal 44-88 [facility] Comment on above: Performed By: #### 7 890917, 51467883, [id number] #### [facility] (DEFAULT) [address] [place] [address] Standardon 09-01-2019 eGFR Non AA 44 mL/min/1.73m2 [facility] Comment on above: Performed By: #### 7 078963, [id number], [id number] #### [facility] (DEFAULT) [address] [place] [address] eGFR AA 54 mL/min/1.73m2 [facility] Comment on above: Result Comment: Typewriter Aligner kody Kidney disease could be indicated at eGFRs of less than 60 ml/min/1.73m2. Kidney Failure is indicated at less than 15 ml/min/1.73m2 Performed By: #### 7 801158, 56820329, [id number] #### [facility] (DEFAULT) [address] [place] [address] 29890 Anion gap [Moles/Vol] 15.0 mmol/L Normal 5.0-19.0 [facility] Comment on above: Performed By: #### 7 248939, 11843243, [id number] #### [facility] (DEFAULT) [address] [place] [address] Calcium [Mass/Vol] 9.2 mg/dL Normal 8.9-10.3 [facility] Comment on above: Performed By: #### 7 093640, 44989034, [id number] #### [facility] (DEFAULT) [address] [place] [address] 07793 Chloride [Moles/Vol] 101 mmol/L Normal 101-111 [facility] Comment on above: Performed By: #### 7 142734, 06186790, [id number] #### [facility] (DEFAULT) [address] [place] [address] 78823 CO2 [Moles/Vol] 25 mmol/L Normal 21-32 [facility] Comment on above: Performed By: #### 7 674475, 80375066, [id number] #### [facility] (DEFAULT) [address] [place] [address] 11134 Creatinine [Mass/Vol] 1.17 mg/dL Normal 0.60-1.30 [facility] Comment on above: Performed By: #### 7 450218, 40233487, [id number] #### [facility] (DEFAULT) [address] [place] [address] 75326 Glucose [Mass/Vol] 94.0 mg/dL Normal 74.0-118.0 [facility] Comment on above: Performed By: #### 7 733195, 15682555, [id number] #### [facility] (DEFAULT) [address] [place] [address] 97226 Osmolality [Osmolality] 276 mOsm/L [facility] Comment on above: Performed By: #### 7 856260, 77401614, [id number] #### [facility] (DEFAULT) [address] [place] [address] 73803 Potassium [Moles/Vol] 4.0 mmol/L Normal 3.6-5.1 [facility] Comment on above: Performed By: #### 7 614856, 98988911, [id number] #### [facility] (DEFAULT) [address] [place] [address] 01583 Sodium [Moles/Vol] 137.0 mmol/L Normal 136.0-144 . 0 [facility] Comment on above: Performed By: #### 7 611788, 30800158, [id number] #### [facility] (DEFAULT) [address] [place] [address] 62481 Urea nitrogen [Mass/Vol] 20 mg/dL Normal 8-26 [facility] Comment on above: Performed By: #### 7 077511, 09068563, [id number] #### [facility] (DEFAULT) [address] [place] [address] 49456 Urea nitrogen/Creatinine [Mass ratio] 17.0 mg/mg High 4.6-16.2 [facility] Comment on above: Performed By: #### 7 098902, 21361658, [id number] #### [facility] (DEFAULT) [address] [place] [address] 61688 CBC w/ Auto Diffon 0 Erythrocyte distribution width (RBC) [Ratio] 13.9 % Normal 11.5-15.0 [facility] Comment on above: Performed By: #### 7 883318, 31444402, [id number] #### [facility] (DEFAULT) [address] [place] [address] Hematocrit (Bld) [Volume fraction] 38.5 % Normal 33.7-40.4 [facility] Comment on above: Performed By: #### 7 010832, 15862940, [id number] #### [facility] (DEFAULT) [address] [place] [address] 17274 Hemoglobin (Bld) [Mass/Vol] 12.6 g/dL Normal 11.3-15.9 [facility] Comment on above: Performed By: #### 7 169500, 13980835, [id number] #### [facility] (DEFAULT) [address] [place] [address] 08483 Man Diff? Auto Normal [facility] Comment on above: Performed By: #### 7 253198, 40489959, [id number] #### [facility] (DEFAULT) [address] [place] [address] 95989 MCH (RBC) [Entitic mass] 33 pg Normal 24-34 [facility] Comment on above: Performed By: #### 7 023491, 29282261, [id number] #### [facility] (DEFAULT) [address] [place] [address] 10245 MCHC (RBC) [Mass/Vol] 33 g/dL Normal 26-37 [facility] Comment on above: Performed By: #### 7 084655, 16314512, [id number] #### [facility] (DEFAULT) [address] [place] [address] 74839 MCV (RBC) [Entitic vol] 101 fL High 81-100 [facility] Comment on above: Performed By: #### 7 509731, 87679282, [id number] #### [facility] (DEFAULT) [address] [place] [address] 92564 Platelet mean volume (Bld) [Entitic vol] 9.5 fL Normal 6.3-10.2 [facility] Comment on above: Performed By: #### 7 676479, 30122222, [id number] #### [facility] (DEFAULT) [address] [place] [address] 81778 Platelets (Bld) [#/Vol] 292 x10 Normal 138-427 [facility] Comment on above: Performed By: #### 7 602223, 18029819, [id number] #### [facility] (DEFAULT) [address] [place] [address] 71034 RBC (Bld) [#/Vol] 3.82 x10 Normal 3.70-5.30 [facility] Comment on above: Performed By: #### 7 562993, 64040033, [id number] #### [facility] (DEFAULT) [address] [place] [address] 43633 WBC (Bld) [#/Vol] 10.1 x10 Normal 3.5-10.5 [facility] Comment on above: Performed By: #### 7 911435, 64672535, [id number] #### [facility] (DEFAULT) [address] [place] [address] 25965 UA Wihes8ix 09-01-2019 RBC (U) [#/Vol] None Seen Normal [facility] Comment on above: Order Comment: Urina lysis Microscopic order added on by Discern Expert Rules system. Performed By: #### 1 [id number], [id number], [id number] #### [facility] (DEFAULT) [address] [place] [address] UA Amorph. 1+ [facility] Comment on above: Order Comment: Urina lysis Microscopic order added on by Discern Expert Rules system. Performed By: #### 1 [id number], 16048609, [id number] #### [facility] (DEFAULT) [address] [place] [address] UA Bacteria 4+ [facility] Comment on above: Order Comment: Urina lysis Microscopic order added on by Discern Expert Rules system. Performed By: #### 1 [id number], 12104840, [id number] #### [facility] (DEFAULT) [address] [place] [address] UA Squam Epi Moderate [facility] Comment on above: Order Comment: Urina lysis Microscopic order added on by Discern Expert Rules system. Performed By: #### 1 [id number], 12282219, [id number] #### [facility] (DEFAULT) [address] [place] [address] UA WBC 15-20 [facility] Comment on above: Order Comment: Urina lysis Microscopic order added on by [employer] Expert Rules system. Performed By: #### 1 [id number], 91350806, [id number] #### [facility] (DEFAULT) [address] [place] [address] UA w Culture if Ind Standard on 09-01-2019 Breakpoint UA [facility] Comment on above: Performed By: #### 1 [id number], [id number], [id number] #### [facility] (DEFAULT) [address] [place] [address] 91777 Color (U) Yellow [facility] Comment on above: Performed By: #### 1 [id number], 35287480, [id number] #### [facility] (DEFAULT) [address] [place] [address] 25740 Culture? Yes [facility] Comment on above: Performed By: #### 1 [id number], 79867587, [id number] #### [facility] (DEFAULT) [address] [place] [address] Glucose (U) [Mass/Vol] Negative Normal [facility] Comment on above: Performed By: #### 1 [id number], 83102980, 7893882 #### [facility] (DEFAULT) [address] [place] [address] 47283 Ketones Ql (U) Negative Normal [facility] Comment on above: Performed By: #### 1 [id number], [id number] #### [facility] (DEFAULT) [address] [place] [address] Micro? Indicated [facility] Comment on above: Performed By: #### 1 [id number], [id number] #### [facility] (DEFAULT) [address] [place] [address] UA Bilirubin Negative Normal [facility] Comment on above: Performed By: #### 1 [id number], [id number] #### [facility] (DEFAULT) [address] [place] [address] UA Blood TRACE Abnormal NEGATIVE [facility] Comment on above: Performed By: #### 1 [id number], [id number] #### [facility] (DEFAULT) [address] [place] [address] UA Clarity CLEAR Normal CLEAR [facility] Comment on above: Performed By: #### 1 [id number], [id number], [id number] #### [facility] (DEFAULT) [address] [place] [address] UA Leuk Est MODERATE Abnormal NEGATIVE [facility] Comment on above: Performed By: #### 1 [id number], [id number], [id number] #### [facility] (DEFAULT) [address] [place] [address]24 UA Nitrite Positive Abnormal NEGATIVE [facility] Comment on above: Performed By: #### 1 [id number], [id number] #### [facility] (DEFAULT) [address] [place] [address] UA pH 5.5 Normal 5-8 [facility] Comment on above: Performed By: #### 1 [id number], [id number], [id number] #### [facility] (DEFAULT) [address] [place] [address] UA Protein Negative Normal NEGATIVE [facility] Comment on above: Performed By: #### 1 [id number], [id number] #### [facility] (DEFAULT) [address] [place] [address]80 UA Spec Grav 1.025 Normal 1.001-1.03 5 [facility] Comment on above: Performed By: #### 1 [id number], [id number], [id number] #### [facility] (DEFAULT) [address] [place] [address] UA Urobilinogen 0.2 mg/dL Normal 0.2-1.0 [facility] Comment on above: Performed By: #### 1 [id number], [id number] #### [facility] (DEFAULT) [address] [place] [address]652 Urine Source Clean Catch Normal [facility] Comment on above: Performed By: #### 1 [id number], [id number], [id number] #### [facility] (DEFAULT) [address] [place] [address] JOINT PAIN INJECTIONon 09-06 JOINT PAIN INJECTION [facility] Department of Radiology [address] [place] [phone] Patient Name: VINCENT HSU : 1935 [...] guidance. Electronically signed by:Christy Ochoa. Transcribed by: [email or web address], User Resident: Electronically Signed by: CHRISTY OCHOA @ 09/09/2018 05:57 PM Normal [facility] Comment on above: Order Comment: , Dr. Ochoa , Body Part: Hip , Side: LEFT , Dr. Ochoa , Body Part: Hip , Side: LEFT , , , Ordering Provider - HERMELINDO HILLMAN MD , CT 3D LOWER EXTREMITY WO CON TRAST LEFTon 08-02-2018 CT 3D LOWER EXTREMITY WO CONTRAST LEFT [facility] Department of Radiology [address] [place] [phone] Patient Name: VINCENT HSU : 1935 Sex: F Age: Race: White Pt. 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 MEDICARE NO PC REQ [...] arthritis. Electronically signed by:Coy Jerome. Transcribed by: [email or web address], User Resident: Electronically Signed by: COY JEROME @ 08/08/2018 02:20 PM Normal [facility] Comment on above: Order Comment: , Jessie perkins left hip healing HIP LEFT 1 OR 2 VWS WITH PEL VISon 03-18-2018 HIP LEFT 1 OR 2 VWS WITH PELVIS [facility] Department of Radiology [address] [place] [phone] Patient Name: VINCENT HSU : 1935 [...] study Electronically signed by:Coy Jerome. Transcribed by: [email or web address], User Resident: Electronically Signed by: COY JEROME @ 03/18/2018 02:19 PM Normal [facility] Comment on above: Order Comment: , , = ========= , Ordering Rebeka VELÁSQUEZ PA-C , HIP LEFT 1 OR 2 VWS WITH PEL VISon 01-10-2018 HIP LEFT 1 OR 2 VWS WITH PELVIS [facility] Department of Radiology [address] [place] [phone] Patient Name: VINCENT HSU : 1935 [...] arthritis. Electronically signed by:Manjit Whatley. Transcribed by: [email or web address], User Resident: Electronically Signed by: MANJIT WHATLEY @ 01/10/2018 04:38 PM Normal [facility] Comment on above: Order Comment: , Carmella ws (X-RAY, HIP): Radiologic Protocol , Views (X-RAY, HIP): Radiologic Protocol , , , Ordering Rebeka MORENO-C , HIP LEFT 1 OR 2 VWS WITH PEL VISon 11-01-2017 HIP LEFT 1 OR 2 VWS WITH PELVIS [facility] Department of Radiology [address] [place] [phone] Patient Name: VINCENT HSU : 1935 Sex: F Age: Race: White Pt. 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 Electronically signed by:Gerson Rodriguez. Transcribed by: [email or web address], User Resident: Electronically Signed by: GERSON RODRIGUEZ @ 11/01/2017 03:25 PM Normal [facility] Comment on above: Order Comment: , Carmella ws (X-RAY, HIP): Radiologic Protocol , Views (X-RAY, HIP): Radiologic Protocol , , , Ordering Provider - MIRTHA DIDIER PA-C , HIP LEFT 1 OR 2 VWS WITH PEL VISon 09-21-2017 HIP LEFT 1 OR 2 VWS WITH PELVIS [facility] Department of Radiology [address] [place] [phone] Patient Name: VINCENT HSU : 1935 Sex: F Age: Race: White Pt. 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 Transcribed by: [email or web address], User Resident: Electronically Signed by: COY JEROME @ 09/21/2017 03:27 PM Normal [facility] Comment on above: Order Comment: , , = ========= , Ordering Provider - MIRTHA VELÁSQUEZ PA-C , Vital Signs Date Time Vital Sign Value Performing Clinician Facility 05-24-2023 13:35-0400 Body height 177.8 cm MD Gypsy Mcmahon Work Phone: [facility] 05-24-2023 13:35-0400 Body mass index (BMI) [Ratio] 18.8 kg/m2 MD Gypsy Mcmahon Work Phone: [facility] 05-24-2023 13:35-0400 Body temperature 97.7 [degF] MD Gypsy Mcmahon Work Phone: [facility] 05-24-2023 13:35-0400 Body weight 59.42 kg MD Gypsy Mcmahon Work Phone: [facility] 05-24-2023 13:35-0400 Diastolic blood pressure 54 mm[Hg] MD Gypsy Mcmahon Work Phone: [facility] 05-24-2023 13:35-0400 Heart rate 63 /min MD Gypsy Mcmahon Work Phone: [facility] 05-24-2023 13:35-0400 Systolic blood pressure 127 mm[Hg] MD Gypsy Mcmahon Work Phone: [facility] 05-21-2023 10:26-0400 Body height 177.8 cm MD Gypsy Mcmahon Work Phone: [facility] 05-21-2023 09:54-0400 Body mass index (BMI) [Ratio] 18.6 kg/m2 MD Gypsy Mcmahon Work Phone: [facility] 05-21-2023 09:54-0400 Body weight 58.96 kg MD Gypsy Mcmahon Work Phone: [facility] 05-05-2023 16:40-0400 Diastolic blood pressure 71 mm[Hg] MD Jacinto Max Work Phone: [facility] 05-05-2023 16:40-0400 Systolic blood pressure 170 mm[Hg] MD Jacinto Max Work Phone: [facility] 05-05-2023 16:36-0400 Body height 177.8 cm MD Jacinto Max Work Phone: [facility] 05-05-2023 16:36-0400 Body temperature 98.1 [degF] MD Jacinto Max Work Phone: [facility] 05-05-2023 16:36-0400 Body weight 59.87 kg MD Jacinto Max Work Phone: [facility] 05-05-2023 16:36-0400 Heart rate 71 /min MD Jacinto Max Work Phone: [facility] 05-05-2023 16:36-0400 Respiratory rate 18 /min MD Jacinto Max Work Phone: [facility] 05-05-2023 16:36-0400 SaO2% (BldA) [Mass fraction] 98 % MD Jacinto Max Work Phone: [facility] 04-15-2023 13:30-0500 Body height 167.64 cm MD Jacinto Max Work Phone: [facility] 04-15-2023 13:30-0500 Body mass index (BMI) [Ratio] 20.8 kg/m2 MD Jacinto Max Work Phone: [facility] 04-15-2023 13:30-0500 Body temperature 97.2 [degF] MD Jacinto Max Work Phone: [facility] 04-15-2023 13:30-0500 Body weight 58.57 kg MD Jacinto Max Work Phone: [facility] 04-15-2023 13:30-0500 Diastolic blood pressure 75 mm[Hg] MD Jacinto Max Work Phone: [facility] 04-15-2023 13:30-0500 Heart rate 60 /min MD Jacinto Max Work Phone: [facility] 04-15-2023 13:30-0500 Systolic blood pressure 165 mm[Hg] MD Jacinto Max Work Phone: [facility] 02-26-2023 10:00-0500 Body height 167.64 cm MD Jacinto Max Work Phone: [facility] 02-26-2023 10:00-0500 Diastolic blood pressure 76 mm[Hg] MD Jacinto Max Work Phone: [facility] 02-26-2023 10:00-0500 Systolic blood pressure 156 mm[Hg] MD Jacinto Max Work Phone: [facility] 02-25-2023 10:15-0500 Body height 175.26 cm MD Jacinto Max Work Phone: [facility] 02-25-2023 10:15-0500 Body weight 59.1 kg MD Jacinto Max Work Phone: [facility] 02-25-2023 10:02-0500 Diastolic blood pressure 74 mm[Hg] MD Jacinto Max Work Phone: [facility] 02-25-2023 10:02-0500 Heart rate 67 /min MD Jacinto Max Work Phone: [facility] 02-25-2023 10:02-0500 Systolic blood pressure 157 mm[Hg] MD Jacinto Max Work Phone: [facility] 02-18-2023 14:00-0500 Body height 167.64 cm Jacinto Max Other [facility] 02-18-2023 14:00-0500 Body mass index (BMI) [Ratio] 20.66 kg/m2 Jacinto Max Other [facility] [employer] Other 02-18-2023 14:00-0500 Body temperature 97.2 [degF] Jacinto Max Other [facility] Other 02-18-2023 14:00-0500 Body weight 58.06 kg Jacinto Max Other [facility] Other 02-18-2023 14:00-0500 Body weight 58.05 kg MD Jacinto Max Work Phone: [facility] 02-18-2023 14:00-0500 Diastolic blood pressure 66 mm[Hg] Jacinto Max Other [facility] 02-18-2023 14:00-0500 Systolic blood pressure 150 mm[Hg] Jacinto Max Other [facility] 02-16-2023 13:30-0500 Body height 167.64 cm Gypsy Mcmahon Other [facility] 02-16-2023 13:30-0500 Body mass index (BMI) [Ratio] 20.66 kg/m2 Gypsy Mcmahon Other [facility] [employer] Other 02-16-2023 13:30-0500 Body weight 58.06 kg Gypsy Mcmahon Other [employer] [facility] [employer] Other 02-16-2023 13:30-0500 Body weight 58.05 kg MD Jacinto Max Work Phone: [facility] 02-16-2023 13:30-0500 Diastolic blood pressure 68 mm[Hg] Gypsy Mcmahon Other [facility] 02-16-2023 13:30-0500 SaO2% (BldA) [Mass fraction] 96 % Gypsy Mcmahon Other [facility] [employer] Other 02-16-2023 13:30-0500 Systolic blood pressure 140 mm[Hg] Gypsy Mcmahon Other [facility] 02-04-2023 09:09-0500 Heart rate 84 /min MALATHI DEB [facility] 02-04-2023 09:09-0500 SaO2% (BldA) [Mass fraction] 95 % MALATHI DEB [facility] 02-04-2023 09:08-0500 Diastolic blood pressure 88 mm[Hg] MALATHI DEB [facility] 02-04-2023 09:08-0500 Mean blood pressure 121 mm[Hg] MALATHI DEB [facility] 02-04-2023 09:08-0500 Systolic blood pressure 188 mm[Hg] MALATHI DEB [facility] 02-04-2023 09:08-0500 Respiratory [...] Systolic blood pressure 194 mm[Hg] MALATHI DEB [facility] 02-02-2023 09:08-0500 Body temperature [...] 10:54-0500 Respiratory rate 16 /min MALATHI DEB [facility] 01-29-2023 10:53-0500 Body temperature 97.52 [degF] MALATHI DEB [facility] 01-29-2023 10:53-0500 Diastolic blood pressure 84 mm[Hg] MALATHI VIEIRA [facility] 01-29-2023 10:53-0500 Mean blood pressure 104 mm[Hg] MALATHI VIEIRA [facility] 01-29-2023 10:53-0500 Systolic blood pressure 146 mm[Hg] MALATHI VIEIRA [facility] 01-12-2023 13:30-0500 Body height 167.64 cm Hunter Brown Other [facility] [employer] Other 01-12-2023 13:30-0500 Body mass index (BMI) [Ratio] 22 kg/m2 Hunter Bronw Other [facility] Other 01-12-2023 13:30-0500 Body weight 61.83 kg Hunter Brown Other [facility] Other 01-12-2023 13:30-0500 Diastolic blood pressure 60 mm[Hg] Hunter Brown Other [facility] Other 01-12-2023 13:30-0500 Systolic blood pressure 137 mm[Hg] Hunter Brown Other [facility] Other 01-05-2023 11:30-0500 Body height 167.64 cm Gypsy Mcmahon Other [facility] Other 01-05-2023 11:30-0500 Body mass index (BMI) [Ratio] 21.63 kg/m2 Gypsy Mcmahon Other [facility] Other 11-28-2023 11:30-0500 Body weight 60.78 kg Gypsy Mcmahon Other [facility] Other 01-05-2023 11:30-0500 Diastolic blood pressure 72 mm[Hg] Gypsy Mcmahon Other [facility] Other 01-05-2023 11:30-0500 Systolic blood pressure 162 mm[Hg] Gypsy Mcmahon Other [facility] Other 12-28-2022 13:30-0500 Body height 167.64 cm Malathi Velázquez Other [facility] Other 12-28-2022 13:30-0500 Body mass index (BMI) [Ratio] 19.98 kg/m2 Malathi Velázquez Other [facility] Other 12-28-2022 13:30-0500 Body weight 56.16 kg Malathi Velázquez Other [facility] Other 12-28-2022 13:30-0500 Diastolic blood pressure 78 mm[Hg] Malathi Velázquez Other [facility] Other 12-28-2022 13:30-0500 Systolic blood pressure 146 mm[Hg] Malathi Velázquez Other [facility] Other 12-15-2022 11:15-0500 Body height 167.64 cm Gypsy Mcmahon Other [facility] Other 12-15-2022 11:15-0500 Body mass index (BMI) [Ratio] 21.53 kg/m2 Gypsy Mcmahon Other [facility] Other 12-15-2022 11:15-0500 Body weight 60.51 kg Gypsy Mcmahon Other [facility] Other 12-15-2022 11:15-0500 Diastolic blood pressure 73 mm[Hg] Gypsy Mcmahon Other [facility] Other 12-15-2022 11:15-0500 Systolic blood pressure 178 mm[Hg] Gypsy Mcmahon Other [facility] Other 09-22-2022 14:14-0400 Blood Pressure Location MALATHI DEB [facility] 09-22-2022 14:14-0400 Diastolic blood pressure 90 mm[Hg] MALATHI DEB [facility] 09-22-2022 14:14-0400 Heart rate 78 /min MALATHI DEB [facility] 09-22-2022 14:14-0400 Systolic blood pressure 142 mm[Hg] MALATHI DEB [facility] 09-01-2022 14:15-0400 Body height 167.64 cm Gypsy Mcmahon Other [employer] [facility] [employer] Other 09-01-2022 14:15-0400 Body mass index (BMI) [Ratio] 21.14 kg/m2 Gypsy Mcmahon Other [facility] Other 09-01-2022 14:15-0400 Body weight 59.42 kg Gypsy Mcmahon Other [facility] Other 09-01-2022 14:15-0400 Diastolic blood pressure 56 mm[Hg] Gypsy Mcmahon Other [facility] Other 09-01-2022 14:15-0400 Systolic blood pressure 132 mm[Hg] Gypsy Mcmahon Other [facility] Other 06-09-2022 13:42-0400 Diastolic blood pressure 71 mm[Hg] Marvin KWON [facility] 06-09-2022 13:42-0400 Heart rate 59 /min Marvin KWON [facility] 06-09-2022 13:42-0400 Systolic blood pressure 183 mm[Hg] Marvin KWON [facility] 04-24-2022 11:30-0400 Body height 167.64 cm Hunter Brown Other [facility] Other 04-24-2022 11:30-0400 Body mass index (BMI) [Ratio] 22.11 kg/m2 Hunter Brown Other [facility] Other 04-24-2022 11:30-0400 Body weight 62.14 kg Hunter Brown Other [facility] Other 04-24-2022 11:30-0400 Diastolic blood pressure 70 mm[Hg] Hunter Brown Other [facility] Other 04-24-2022 11:30-0400 Systolic blood pressure 159 mm[Hg] Hunter Brown Other [facility] Other 04-07-2022 14:15-0500 Body height 167.64 cm Gypsy Mcmahon Other [facility] Other 04-07-2022 14:15-0500 Body mass index (BMI) [Ratio] 21.79 kg/m2 Gypsy Mcmahon Other [facility] [employer] Other 04-07-2022 14:15-0500 Body weight 61.24 kg Gypsy Mcmahon Other [facility] [employer] Other 04-07-2022 14:15-0500 Diastolic blood pressure 62 mm[Hg] Gypsy Mcmahon Other [facility] [employer] Other 04-07-2022 14:15-0500 Systolic blood pressure 130 mm[Hg] Gypsy Mcmahon Other [facility] [employer] Other 03-11-2022 13:35-0500 Body temperature 97.5 [degF] MD Gypsy Mcmahon Work Phone: [facility] 03-11-2022 13:35-0500 Diastolic blood pressure 61 mm[Hg] MD Gypsy Mcmahon Work Phone: [facility] 03-11-2022 13:35-0500 Heart rate 60 /min MD Gypsy Mcmahon Work Phone: [facility] 03-11-2022 13:35-0500 Respiratory rate 18 /min MD Gypsy Mcmahon Work Phone: [facility] 03-11-2022 13:35-0500 SaO2% (BldA) [Mass fraction] 96 % MD Gypsy Mcmahon Work Phone: [facility] 03-11-2022 13:35-0500 Systolic blood pressure 135 mm[Hg] MD Gypsy Mcmahon Work Phone: [facility] 02-16-2022 10:45-0500 Body height 167.64 cm Gypsy Mcmahon Other [facility] [employer] Other 02-16-2022 10:45-0500 Body mass index (BMI) [Ratio] 21.46 kg/m2 Gypsy Mcmahon Other [facility] Other 02-16-2022 10:45-0500 Body weight 60.33 kg Gypsy Mcmhaon Other [facility] Other 02-16-2022 10:45-0500 Diastolic blood pressure 70 mm[Hg] Gypsy Mcmahon Other [facility] Other 02-16-2022 10:45-0500 Systolic blood pressure 120 mm[Hg] Gypsy Mcmahon Other [facility] Other 02-11-2022 12:00-0500 Body height 172.72 cm Hunter Brown Other [facility] Other 02-11-2022 12:00-0500 Body mass index (BMI) [Ratio] 20.83 kg/m2 Hunter Brown Other [facility] Other 02-11-2022 12:00-0500 Body weight 62.14 kg Hunter Brown Other [facility] Other 02-11-2022 12:00-0500 Diastolic blood pressure 68 mm[Hg] Hunter Brown Other [facility] Other 02-11-2022 12:00-0500 Systolic blood pressure 144 mm[Hg] Hunter Brown Other [facility] Other 01-05-2022 10:30-0500 Body height 172.72 cm Hunter Brown Other [facility] Other 01-05-2022 10:30-0500 Body mass index (BMI) [Ratio] 22.04 kg/m2 Hunter Brown Other [facility] Other 01-05-2022 10:30-0500 Body weight 65.77 kg Hunter Brown Other [facility] Other 01-05-2022 10:30-0500 Diastolic blood pressure 78 mm[Hg] Hunter Brown Other [facility] Other 01-05-2022 10:30-0500 Systolic blood pressure 166 mm[Hg] Hunter Brown Other [facility] Other 03-27-2021 12:00-0500 Body height 172.72 cm Giana Villar Other [facility] Other 03-27-2021 12:00-0500 Body mass index (BMI) [Ratio] 22.96 kg/m2 Giana Villar Other [facility] Other 03-27-2021 12:00-0500 Body weight 68.49 kg Giana Jfkes Other [facility] Other 01-27-2021 10:45-0500 Body height 172.72 cm Giana Jfkes Other [facility] Other 01-27-2021 10:45-0500 Body mass index (BMI) [Ratio] 24.48 kg/m2 Giana Rhoadeskes Other [facility] Other 01-27-2021 10:45-0500 Body weight 73.03 kg Giana Hykes Other [facility] Other Encounters Encounter Date Encounter Type Care Provider Facility Start: 10-27-2023 End: 10-27-2023 Evaluation and management of inpatient GYPSY MCMAHON [facility] Start: 10-27-2023 End: 10-27-2023 ambulatory [facility] Start: 10-20-2023 End: 10-20-2023 ambulatory [facility] Start: 06-23-2023 End: 06-23-2023 ambulatory [facility] Start: 06-17-2023 End: 06-17-2023 ambulatory [facility] Start: 06-15-2023 End: 06-15-2023 ambulatory MALATHI VIEIRA Facility:[facility] Start: 06-15-2023 End: 06-15-2023 Patient encounter procedure MALATHI VIEIRA [facility] Start: 05-28-2023 End: 05-28-2023 ambulatory Monie L Ly Facility:[facility] Start: 05-28-2023 End: 05-28-2023 ambulatory MD Gypsy Mcmahon Work Phone: [facility] Work Phone: Start: 05-28-2023 End: 05-28-2023 Patient encounter procedure MD Gypsy Mcmahon Work Phone: [facility]-CT Scan [facility] [place] Work Phone: Start: 05-25-2023 Non-patient / Non-visit MD Gypsy Mcmahon Work Phone: [facility] Work Phone: Start: 05-24-2023 End: 05-24-2023 Patient encounter procedure MD Gypsy Mcmahon Work Phone: [facility] Infectious Disease Work Phone: Start: 05-21-2023 End: 05-21-2023 Patient encounter procedure MD Gypsy Mcmahon Work Phone: [facility] Gastroenterology Work Phone: Start: 05-06-2023 Non-patient / Non-visit MD Gypsy Mcmahon Work Phone: [facility] Work Phone: Start: 05-05-2023 End: 05-05-2023 Emergency department patient visit Marvin Garcia Facility:[facility] Start: 05-05-2023 End: 05-05-2023 Emergency department patient visit MD Jacinto Max Work Phone: [facility]Emergency Room Work Phone: Start: 05-01-2023 Non-patient / Non-visit MD Jacinto Max Work Phone: [facility] Work Phone: Start: 04-15-2023 End: 04-15-2023 Patient encounter procedure MD Jacinto Max Work Phone: [facility] Infectious Disease Work Phone: Start: 04-06-2023 Non-patient / Non-visit MD Jacinto Max Work Phone: [facility] Work Phone: Start: 03-12-2023 End: 03-12-2023 ambulatory Jacinto Max Other [facility] [employer] Other Start: 03-12-2023 Telephone encounter Jacinto BA [facility] Start: 03-11-2023 End: 03-11-2023 ambulatory Jacinto Max Other [facility] [employer] Other Start: 03-11-2023 Telephone encounter Jacinto Bustamante Infectious Disease Start: 03-02-2023 End: 03-02-2023 ambulatory Gypsy Mcmahon Other [facility] [employer] Other Start: 03-02-2023 Telephone encounter Gypsy Mcmahon [facility] Start: 02-26-2023 End: 02-26-2023 Patient encounter procedure MD Jacinto Max Work Phone: [facility]- Start: 02-25-2023 End: 02-25-2023 ambulatory Jacinto Max Facility:[facility] Start: 02-25-2023 End: 02-25-2023 ambulatory MD Jacinto Max Work Phone: [facility] Work Phone: Start: 02-25-2023 End: 02-25-2023 Discharged Recurring MD Jacinto Max Work Phone: [facility]Infusion Therapy - O/P Work Phone: Start: 02-18-2023 End: 02-18-2023 ambulatory Jacinto Max [facility] Other Start: 02-18-2023 Office outpatient ne w 45 minutes Jacinto Max [facility] Infectious Disease Start: 02-18-2023 End: 02-18-2023 Patient encounter procedure MD Jacinto Max Work Phone: [facility] Work Phone: Start: 02-16-2023 End: 02-16-2023 ambulatory Gypsy Mcmahon [facility] Other Start: 02-16-2023 Office outpatient visit 15 minutes Gypsy Mcmahon [facility] Start: 02-16-2023 End: 02-16-2023 Patient encounter procedure MD Jacinto Max Work Phone: [facility] Work Phone: Start: 01-29-2023 End: 05-05-2023 ambulatory MALATHI VIEIRA Facility:[facility] Start: 01-29-2023 End: 01-29-2023 Patient encounter procedure MALATHI VIEIRA [facility] Start: 01-29-2023 End: 05-05-2023 Recurring MALATHI VIEIRA [facility] Start: 01-26-2023 End: 01-26-2023 Patient encounter procedure MALATHI VIEIRA [facility] Start: 01-26-2023 End: 01-26-2023 ambulatory MALATHI VIEIRA [facility] [employer] Other Start: 01-26-2023 Telephone encounter Hunter brady [facility] Start: 01-20-2023 End: 01-20-2023 ambulatory Hunter Brown Other [facility] Other Start: 01-20-2023 Telephone encounter Hunter brady [facility] Start: 01-12-2023 End: 01-12-2023 ambulatory Hunter Brown [facility] Other Start: 01-12-2023 Office outpatient visit 25 minutes Hunter Brown [facility] Start: 01-12-2023 End: 01-12-2023 Patient encounter procedure MD Jacinto Max Work Phone: [facility] Work Phone: Start: 01-11-2023 End: 01-11-2023 ambulatory Gypsy Mcmahon [facility] Other Start: 01-11-2023 Telephone encounter Gypsy Mcmahon [facility] Start: 01-05-2023 End: 01-05-2023 ambulatory Gypsy Mcmahon [facility] Other Start: 01-05-2023 Telephone encounter Gypsy Mcmahon [facility] Start: 01-05-2023 Transitional care manage srvc 14 day discharge Gypsy Mcmahon [facility] Start: 01-05-2023 End: 01-05-2023 Patient encounter procedure MD Jacinto Max Work Phone[facility] Start: 12-30-2022 End: 12-30-2022 ambulatory Malathi Hoodmadelinejareth [facility] Other Start: 12-30-2022 Telephone encounter Malathi arias [facility] Start: 12-28-2022 End: 12-28-2022 ambulatory Malathi Melania [facility] Other Start: 12-28-2022 Office outpatient visit 15 minutes Malathi Melania [facility] Start: 12-28-2022 End: 12-28-2022 Patient encounter procedure MD Jacinto Max Work Phone: [facility] Work Phone: Start: 12-15-2022 End: 12-15-2022 ambulatory Gypsy Mcmahon [facility] Other Start: 12-15-2022 Office outpatient visit 15 minutes Gyspy Mcmahon [facility] Start: 12-15-2022 Telephone encounter Gypsy Mcmahon [facility] Start: 12-15-2022 End: 12-15-2022 Patient encounter procedure MD Jacinto Max Work Phone: [facility] Work Phone: Start: 11-11-2022 End: 11-11-2022 ambulatory EHAB [facility] Start: 10-29-2022 End: 10-29-2022 ambulatory Hunter Brown Facility:[facility] Start: 09-22-2022 End: 09-22-2022 ambulatory MALATHI VIEIRA Facility:[facility] Start: 09-22-2022 End: 09-22-2022 Patient encounter procedure MALATHI VIEIRA [facility] Start: 09-10-2022 End: 09-10-2022 ambulatory Jose G Ellington [facility] Other Start: 09-10-2022 Nursing evaluation o f patient and report Jose G Ellington [facility] Start: 09-08-2022 End: 09-08-2022 ambulatory Hunter Brown [facility] Other Start: 09-08-2022 Telephone encounter Hunter Palomo [facility] Start: 09-01-2022 End: 09-01-2022 ambulatory Gypsy Mcmahon [facility] Other Start: 09-01-2022 Office outpatient visit 15 minutes Gypsy Mcmahon [facility] Start: 08-27-2022 End: 08-27-2022 ambulatory Gypsy Mcmahon [facility] Other Start: 08-27-2022 Telephone encounter Gypsy Mcmahon [facility] Start: 06-30-2022 End: 06-30-2022 ambulatory AB [facility] Start: 06-09-2022 End: 06-09-2022 Patient encounter procedure Marvin KWON [facility] [place] Start: 05-27-2022 End: 05-28-2022 ambulatory MALATHI VIEIRA Facility: Start: 05-19-2022 End: 05-19-2022 Patient encounter procedure MALATHI VIEIRA [facility] Start: 05-14-2022 End: 05-14-2022 ambulatory Gypsy Mcmahon [facility] Other Start: 05-14-2022 Telephone encounter Gypsy Mcmahon [facility] Start: 05-11-2022 End: 05-12-[address] GYPSY MCMAHON Facility:[facility] Start: 05-01-2022 (Televisit) Televisit Gypsy Mcmahon [facility] Start: 05-01-2022 End: 05-01-2022 ambulatory Gypsy Mcmahon [facility] Other Start: 05-01-2022 Telephone encounter Gypsy Mcmahon [facility] Start: 04-28-2022 End: 04-29-[address] GYPSY MCMAHON Facility:[facility] Start: 04-24-2022 End: 04-24-2022 ambulatory Hunter Brown [facility] Other Start: 04-24-2022 Office outpatient visit 15 minutes Hunter Brown [facility] Gastroenter[facility] Start: 04-16-2022 End: 04-16-2022 ambulatory Gypsy Mcmahon [facility] Other Start: 04-16-2022 Telephone encounter Gypsy Mcmahon [facility] Start: 04-14-2022 End: 04-14-[address] GYPSY MCMAHON Facility:[facility] Start: 04-07-2022 End: 04-07-2022 ambulatory Gypsy Mcmahon [facility] Other Start: 04-07-2022 Office outpatient visit 15 minutes Gypsy Mcmahon [facility] Start: 04-03-2022 End: 04-03-2022 ambulatory Gypsy Mcmahon [facility] Other Start: 04-03-2022 Telephone encounter Gypsy Mcmahon [facility] Start: 03-30-2022 End: 03-30-2022 Departed Referred MD Gypsy Mcmahon Work Phone: [facility] [place] Work Phone: Start: 03-30-2022 End: 03-30-2022 ambulatory MD Gypsy Mcmahon Work Phone: [facility] Work Phone: Start: 03-30-2022 Nursing evaluation o f patient and report Gypsy Mcmahon [facility] Start: 03-20-2022 End: 03-21-[address] GYPSY MCMAHON Facility:[facility] Start: 03-19-2022 End: 03-19-2022 ambulatory Hunter Brown [facility] Other Start: 03-19-2022 Telephone encounter Hunter brady [facility] Start: 03-11-2022 Registered Recurring MD Gypsy Mcmahon Work Phone: [facility] Work Phone: Start: 02-23-2022 End: 02-24-[address] GYPSY MCMAHON Facility:[facility] Start: 02-19-2022 End: 02-19-2022 ambulatory Gypsy Mcmahon [facility] Other Start: 02-19-2022 Telephone encounter Gypsy Mcmahon [facility] Start: 02-17-2022 End: 02-18-[address] GYPSY MCMAHON Facility:[facility] Start: 02-16-2022 End: 02-16-2022 ambulatory Gypsy Mcmahon [facility] Other Start: 02-16-2022 Office outpatient visit 15 minutes Gypsy Mcmahon [facility] Start: 02-16-2022 End: 02-16-2022 Departed Referred MD Gypsy Mcmahon Work Phone: [facility] [place] Work Phone: Start: 02-11-2022 End: 02-11-2022 ambulatory Hunter Brown [facility] Other Start: 02-11-2022 Office outpatient visit 15 minutes Hunter Brown [facility] Start: 02-11-2022 Telephone encounter Hunter brady [facility] Start: 01-26-2022 End: 01-27-[address] GYPSY MCMAHON Facility:[facility] Start: 01-15-2022 End: 01-16-[address] GYPSY MCMAHON Facility:[facility] Start: 01-06-2022 End: 01-06-2022 ambulatory Hunter Brown [facility] Other Start: 01-06-2022 Telephone encounter Hunter brady [facility] Start: 01-05-2022 End: 01-06-2022 ambulatory CLAU Shrestha [facility] [employer] Other Start: 01-05-2022 Office outpatient visit 25 minutes Hunter Brown [facility] Start: 12-27-2021 End: 12-27-[address] REY MONTGOMERY Facility:[facility] Start: 12-18-2021 End: 12-19-2021 ambulatory CLAU NASCIMENTO Facility:[facility] Start: 12-08-2021 End: 12-09-[address] GYPSY MCMAHON Facility:[facility] Start: 11-18-2021 End: 11-18-2021 ambulatory Hunter Brown [facility] Other Start: 11-18-2021 Telephone encounter Hunter brady [facility] Start: 11-17-2021 End: 11-18-[address] GYPSY MCMAHON Facility:[facility] Start: 11-10-2021 End: 11-11-[address] GYPSY MCMAHON Facility:[facility] Start: 11-02-2021 End: 11-04-2021 ambulatory SHAIKH Nasreen CHAPMAN Facility:[facility] Start: 10-31-2021 End: 11-01-[address] GYPSY MCMAHON Facility:[facility] Start: 10-27-2021 End: 10-28-2021 ambulatory [facility] Start: 10-16-2021 End: 10-16-[address] REY MONTGOMERY Facility:[facility] Start: 10-16-2021 End: 10-17-[address] GYPSY MCMAHON Facility:[facility] Start: 08-18-2021 End: 08-18-2021 ambulatory Giana Villar Other [employer] Other Start: 08-18-2021 Telephone encounter Giana Villar [facility] Start: 08-12-2021 End: 08-12-[address] GYPSY MCMAHON Facility: Start: 04-22-2021 End: 04-22-2021 ambulatory Giana Villar [facility] Other Start: 04-22-2021 Telephone encounter Giana Villar [facility] Start: 03-27-2021 End: 03-27-2021 ambulatory Giana Villar [facility] Other Start: 03-27-2021 Office outpatient visit 25 minutes Giana Villar [facility] Start: 01-27-2021 End: 01-27-2021 ambulatory Giana Villar [facility] Other Start: 01-27-2021 Office outpatient visit 25 minutes Giana Villar [facility] Start: 01-27-2021 Telephone encounter Giana Villar [facility] Gastroenter[facility] Procedures Date Procedure Procedure [...] 03-30-2022 Bacteria identified in Urine by Culture [facility] Bacteria identified in Stool by Culture [facility] Bacteria identified in Urine by Culture [facility] Elastase.pancreatic [Mass/mass] in Stool [facility] Patient referral [facility] Work Phone: [facility] Immunizations Immunization Date Immunization Notes Care Provider Bob henry 02-16-2022 Shingrix 50 MCG/0.5M L; Translations: [Shingrix 50 MCG/0.5ML] Hunter Brown Other [facility] Other 01-15-2022 influenza virus vaccine, unspecified formulation MALATHI VIEIRA [facility] 01-15-2022 SARS-CoV-2 (COVID-19 ) [id number] MLAATHI VIEIRA [facility] 01-23-2021 SARS-CoV-2 (COVID-19 ) mRNA BNT-162b2 vax MALATHI DEB [facility] 01-06-2021 influenza virus vaccine, unspecified formulation MALATHI DEB [facility] 03-27-2020 SARS-CoV-2 (COVID-19 ) mRNA BNT-162b2 vax MALATHI DEB [facility] 03-04-2020 SARS-CoV-2 (COVID-19 ) mRNA BNT-162b2 vax MALATHI DEB [facility] 12-06-2019 influenza virus vaccine, unspecified formulation MALATHI DEB [facility] 12-14-2018 influenza virus vaccine, unspecified formulation MALATHI DEB [facility] 02-02-2018 influenza virus vaccine, unspecified formulation MALATHI DEB [facility] 11-08-2017 pneumococcal polysaccharide vaccine, 23 valent MALATHI DEB [facility] 11-02-2017 influenza virus vaccine, unspecified formulation MALATHI DEB [facility] 12-09-2016 influenza virus vaccine, unspecified formulation MALATHI DEB [facility] 12-02-2016 influenza virus vaccine, unspecified formulation MALATHI DEB [facility] 12-17-2015 influenza virus vaccine, unspecified formulation MALATHI DEB [facility] 10-10-2015 influenza virus vaccine, unspecified formulation MALATHI VIEIRA [facility] 11-19-2014 influenza virus vaccine, unspecified formulation MALATHI VIEIRA [facility] 11-09-2014 pneumococcal polysaccharide vaccine, 23 valent MALATHI VIEIRA [facility] NEGATED: Highlighted row has not occurred!01-26-2023 influenza virus vaccine, unspecified formulation MALATHI VIEIRA [facility] Payers Date Payer Category Payer Self-pay [id number] 1958 [employer] [id number] 1958 Medicare [id number] 2.1 [id number] 1936 Unknown [id number] 2.16.84 0.1.828736.3.579.2.593 1936 Unknown [id number] 2.16.84 0.1.164289.3.579.2.593 1936 Unknown [id number] 2.16.84 0.1.084791.3.579.2.593 1936 Unknown [id number] 2.16.84 0.1.580916.3.579.2.593 1936 Unknown [id number] 2.16.84 0.1.696808.3.579.2.593 1936 Unknown [id number] 2.16.84 0.1.885124.3.579.2.593 1936 Unknown [id number] 2.16.84 0.1.201500.3.579.2.593 1936 Unknown [id number] 2.16.84 0.1.374752.3.579.2.593 1936 Unknown [id number] 2.16.84 0.1.955240.3.579.2.593 1936 Unknown [id number] 2.16.84 0.1.938620.3.579.2.593 1936 Unknown [id number] 2.16.84 0.1.004819.3.579.2.593 1936 Unknown [id number] 2.16.84 0.1.981791.3.579.2.593 1936 Unknown [id number] 2.16.84 0.1.798737.3.579.2.593 1936 Unknown [id number] 2.16.84 0.1.271871.3.579.2.593 1936 Unknown [id number] 2.16.84 0.1.224138.3.579.2.593 1936 Unknown [id number] 2.16.84 0.1.504476.3.579.2.593 1936 Unknown [id number] 2.16.84 0.1.769368.3.579.2.593 1936 Unknown [id number] 2.16.84 0.1.784341.3.579.2.593 1936 Unknown [id number] 2.16.84 0.1.149703.3.579.2.593 1936 Unknown [id number] 2.16.84 0.1.007105.3.579.2.593 1936 Unknown [id number] 2.16.84 0.1.696416.3.579.2.593 1936 Unknown [id number] 2.16.8 40.1.663693.3.579.2.1286 1936 Unknown [id number] 2.16.8 40.1.362378.3.579.2.727 1936 Unknown [id number] 2.16.8 40.1.495425.3.579.2.727 1936 Unknown [id number] 2.16.8 40.1.139182.3.579.2.727 1936 Unknown [id number] 2.16.8 40.1.447634.3.579.2.727 1936 Unknown [id number] 2.16.8 40.1.226023.3.579.2.128 1936 Unknown [id number] 2.16.8 40.1.955460.3.579.2.1286 1936 Unknown [id number] 2.16.8 40.1.498686.3.579.2.128 1936 Unknown [id number] 2.16.8 40.1.228804.3.579.2.1286 Unknown [id number] 2.16.8 40.1.283275.3.579.2.531 Unknown [id number] 2.16.8 40.1.695373.3.579.2.531 Social History Date Type Detail Facility Unknown if ever smoked [facility] Other Sex Assigned At [facility] Start: 1935 Sex Assigned At Female F [facility] Start: 05-19-2022 End: 06-09-2022 Tobacco smoking status Ex-smoker (finding) [facility] Start: 09-22-2022 Tobacco smoking status Never [facility] Start: 05-05-2023 [facility] Functional Status Date Assessment Result Facility 01-26-2023 Functional Status N/A [facility] 09-22-2022 Functional Status N/A [facility] 06-09-2022 Functional Status N/A [facility] [place] 05-19-2022 Functional Status N/A [facility] Clinical Notes 01-27-2021 to 03-12-2023 Note Date & Type Note Facility 03-12-2023 Evaluation note Encounter Date Diagnosis Assessment Notes Mar, 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 Preventative measures were discussed. Vitamin C ulxq-qlf-xdirhjz recommended as well as topical Thera workx [...] n due to immunosuppression (ICD-10 - Z91.89) [facility] Other 01-09-2024 Evaluation note* Encounter Date Diagnosis [...] pain. Feb, Pain, unspecified (ICD-10 - R52) [facility] Other 12-19-2023 Hospital Discharge instructions Patient Education 01/26/2023 16:05:17 Urinary Tract Infection, Adult, Qaat-ez-Nsjo Urinary Tract Infection, Adult A urinary tract [...] Follow these instructions at home: Medicines Take toza-hxk-tqdmcoo and prescription medicines only as told by [...] provider. Document Revised: 09/06/2020 Document Reviewed: 09/06/2020 [employer] Patient Education 2022 [employer]. Follow Up Care 06/09/2022 14:50:19 With:MALATHI VIEIRA PA-C, URL Address: [address] [place] [address] [phone] When: Unknown Comments:f/u in [place] [facility] 12-13-2023 Evaluation note* Encounter Date Diagnosis Assessment Notes Treatment Notes Treatment Clinical Notes Jan, Diarrhea (ICD-10 - R19.7) [facility] Other 12-05-2023 Evaluation note* Encounter Date Diagnosis [...] a day, we will re-test for C-diff [facility] Other 11-28-2023 Evaluation note* Encounter Date Diagnosis Assessment Notes Treatment Notes Treatment Clinical Notes Dec, Clostridium difficile colitis (ICD-10 - A04.72) Finish meds as prescribed. (cipro, Flagyl) Followup w Dr. Brown as scheduled. Understands the c diff could recur. Followup as needed Discussed good nutrition and healthy diet. [facility] Other 11-20-2023 Evaluation note* Encounter Date Diagnosis [...] Pt understands and agrees with the plan. [facility] Other 11-07-2023 Evaluation note* Encounter Date Diagnosis Assessment Notes Treatment Notes Treatment Clinical Notes Dec, Frequent UTI (ICD-10 - N39.0) [facility] Other 11-07-2023 Evaluation note* Encounter Date Diagnosis [...] Dr. Licea today. Consider PT at [facility] or the [facility]. [facility] [...] Rfl: miscellaneous medical supply (Blood Pressure Cuff) [facility] 1 kit in the morning and at [...] veins Hypertension - Uncon (more content not included)...[facility]08-15-2023 Hospital Discharge instructions Patient Education 09/22/2022 15:32:53 Urinary Tract Infection, Adult, Dehj-lm-Cqhk Urinary Tract Infection, Adult A urinary tract [...] Follow these instructions at home: Medicines Take pylc-kab-xvcngmi and prescription medicines only as told by [...] provider. Document Revised: 09/06/2020 Document Reviewed: 09/06/2020 [employer] Patient Education 2022 [employer]. Follow Up Care 09/22/2022 10:38:22 With:MALATHI VIEIRA PA-C, URL Address: [address] [place] [address] When: Unknown [facility] 08-03-2023 Evaluation note* Encounter Date Diagnosis Assessment Notes Treatment Notes Treatment Clinical Notes Sep, Dysuria (ICD-10 - R30.0) [facility] Other 08-01-2023 Evaluation note* Encounter Date Diagnosis Assessment Notes Treatment Notes Treatment Clinical Notes Sep, Microscopic colitis, unspecified microscopic colitis type (ICD-10 - K52.839) [facility] Other 07-25-2023 Evaluation note* Encounter Date Diagnosis Assessment Notes Treatment Notes Treatment Clinical Notes Aug, Frequent UTI (ICD-10 - N39.0) Continue estrogen cream. Review with Urology on her followup appt. Discussed causes of UTIs Aug, Lymphocytic colitis (ICD-10 - K52.832) Improved with GI at [facility]. 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 Barry. Reviewed medications and explained their purpose. [facility] Other 07-20-2023 Evaluation note* Encounter Date Diagnosis Assessment Notes Treatment Notes Treatment Clinical Notes Aug, Recurrent UTI (ICD-10 - N39.0) [facility] [...] asked her to discuss this with her cnmt. Depending on the risk-benefit ratio will consider starting 1 or the other. She is on Zocor which is not ideal. If her cholesterol is not controlled, would suggest switching her to 40 mg of Lipitor or 20 mg of Crestor. Follow-up in 6 months or sooner should problems arise or her stress test revealed ischemia Jake Barry MD, MPH, FACC, [facility], [facility] Interventional Cardiology Pager Email: [email or web address] Hospital Discharge instructions Patient Education 06/09/2022 14:15:56 Urinary Tract Infection, Adult, Cetc-di-Eemh Urinary Tract Infection, Adult A urinary tract [...] Follow these instructions at home: Medicines Take nrmn-qui-nlxxgfo and prescription medicines only as told by [...] provider. Document Revised: 09/06/2020 Document Reviewed: 09/06/2020 [employer] Patient Education 2022 [employer]. Follow Up Care 06/01/2022 10:03:13 With:CHER KRISHNAN, Marvin Camacho, URL Address: [facility] [address] [place] [phone] When:10/10/2022 [facility] 04-11-2023 Hospital Discharge instructions Patient Education [...] Treatment for this condition includes: Antibiotic medicine. Rbme-pmu-sjvujxm medicines to treat discomfort. Drinking enough water [...] Follow these instructions at home: Medicines Take uifq-jao-rboxrly and prescription medicines only as told by [...] 11/04/2005 Document Revised: 01/12/2019 Document Reviewed: 08/04/2018 [employer] Patient Education 2020 [employer] Follow Up Care 04/20/2022 10:50:51 With:MALATHI VIEIRA PA-C, URL Address: [address] [place] [address] When: Unknown [facility] 04-06-2023 Evaluation note* Encounter Date Diagnosis Assessment Notes Treatment Notes Treatment Clinical Notes May, Frequent UTI (ICD-10 - N39.0) [facility] Other 03-24-2023 Evaluation note* Encounter Date Diagnosis [...] back this morning. antibiotic at her pharmacy. [facility] Other 03-17-2023 Evaluation note* Encounter Date Diagnosis Assessment Notes Treatment Notes Treatment Clinical Notes Apr, Lymphocytic colitis (ICD-10 - K52.832) Continue Entyvio as directed Continue Lotronex 0.5 mg 1/2 tablet daily Rto 4 months [facility] Other 03-09-2023 Evaluation note* Encounter Date Diagnosis Assessment Notes Treatment Notes Treatment Clinical Notes Apr, Acute cystitis without hematuria (ICD-10 - N30.00) [facility] Other 02-28-2023 Evaluation note* Encounter Date Diagnosis Assessment Notes Treatment Notes Treatment Clinical Notes Mar, Recurrent UTI (ICD-10 - N39.0) Discussed options. Will try estrogen cream for vaginal health. Denies personal history of female cancers. Will also set up w Urology Mar, Colitis (ICD-10 - K52.9) Further treatment with Dr. Brown w appt on 04/24 [facility] Other 02-20-2023 Evaluation note* Encounter Date Diagnosis Assessment Notes Treatment Notes Treatment Clinical Notes Mar, Dysuria (ICD-10 - R30.0) [facility] [facility] Other 01-09-2023 Evaluation note* Encounter Date Diagnosis Assessment Notes Treatment Notes Treatment Clinical Notes Feb, Acute cystitis without hematuria (ICD-10 - N30.00) Sent to [facility] for urine culture - will treat based on results. Feb, Encounter for immunization (ICD-10 - Z23) Feb, Microscopic colitis, unspecified microscopic colitis type (ICD-10 - K52.839) Keep appt w Dr. Brown. Discussed boost or other supplement to gain weight Feb, Gastric ulcer (ICD-10 - K25.9) Encouraged her to continue pantoprazole [facility] Other 01-04-2023 Evaluation note* Encounter Date Diagnosis Assessment Notes Treatment Notes Treatment Clinical Notes Feb, Lymphocytic colitis (ICD-10 - K52.832) Start Entyvio infusions every 8 weeks Continue Budesonide, Alosetron, Imodium, and Pepto for now until starting Entyvio. Pt to keep record of bowel movements - how many and consistency Follow up in 2 months Feb, Fecal incontinence (ICD-10 - R15.9) [facility] Other 11-28-2022 Evaluation note* Encounter Date Diagnosis [...] Pantoprazole as prescribed Okay to stop Sucralfate [facility] Other 09-25-2022 NoteOPERATIVE NOTE OPERATION DATE: 11/04/2021 [...] was taken to PACU in good condition.[facility] 03-27-2021 Evaluation note* Encounter Date Diagnosis Assessment Notes Treatment Notes Treatment Clinical Notes Mar, Microscopic colitis, unspecified microscopic colitis type (ICD-10 - K52.839) INCREASE COLESTIPOL TO 4 TABS AT LUNCHTIME DAILY IF NOT IMPROVED ON HIGHER DOSE PT TO CALL ON 03/31 FOR ALTERNATIVE PLAN Mar, Irritable bowel syndrome with diarrhea (ICD-10 - K58.0) [facility] Other 12-20-2021 Evaluation note* Encounter Date Diagnosis Assessment Notes Treatment Notes Treatment Clinical Notes Jan, Microscopic colitis, unspecified microscopic colitis type (ICD-10 - K52.839) START COLESIPOL 2 PO DAILY CONTINUE BUDESONIDE WITHOUT CHANGE 3 PO Q AM AND MAYBE CONSIDERING STOP THIS IF COLESTIPOL IS WORKING ENOUGH TO CONTROL HER SYMPTOMS [employer] [facility] [employer] Other 12-20-2021 Evaluation note* Encounter Date Diagnosis Assessment Notes Treatment Notes Treatment Clinical Notes Jan, Microscopic colitis, unspecified microscopic colitis type (ICD-10 - K52.839) [facility] [employer] Other Evaluation + Plan note No data available for this section [facility] evaluation + Plan note Future Appointments Appointment Date:10/27/2022 01:00:00 PM Scheduled Provider:MALATHI VIEIRA PA-C Location:[facility] Appointment Type:URO Office Visit [facility] evaluation + Plan note Future Appointments Appointment Date:12/29/2022 01:00:00 PM Scheduled Provider:MALATHI VIEIRA PA-C Location:[facility] Appointment Type:URO Office Visit [facility] evaluation + Plan note Future Appointments Appointment Date:06/15/2023 02:00:00 PM Scheduled Provider:MALATHI VIEIRA PA-C Location:[facility] Appointment Type:URO Office Visit [facility] evaluation + Plan note Future Appointments Appointment Date:01/30/2023 10:30:00 AM Scheduled Provider: Location:[facility] Appointment Type:ASU IV Antibiotic (FT) Appointment Date:01/31/2023 10:30:00 AM Scheduled Provider: Location:[facility] Appointment Type:ASU IV Antibiotic (FT) Appointment Date:02/01/2023 10:30:00 AM Scheduled Provider: Location:[facility] Appointment Type:ASU IV Antibiotic (FT) Appointment Date:02/02/2023 10:30:00 AM Scheduled Provider: Location:[facility] Appointment Type:ASU IV Antibiotic (FT) Appointment Date:02/03/2023 10:30:00 AM Scheduled Provider: Location:[facility] Appointment Type:ASU IV Antibiotic (FT) Appointment Date:02/04/2023 10:30:00 AM Scheduled Provider: Location:[facility] Appointment Type:ASU IV Antibiotic (FT) Appointment Date:06/15/2023 02:00:00 PM Scheduled Provider:MALATHI VIEIRA PA-C Location:[facility] InformationNort Fort[facility] Other Evaluation noteNo assessment information available [facility] Work Phone: evaluation note* Diagnosis Onset Date Resolution Status Recurrent Clostridioides difficile diarrhea acute [facility] Work Phone: [facility] note* Diagnosis Onset Date Resolution Status Recurrent Clostridioides difficile diarrhea acute Diarrhea acute Microscopic colitis acute Recurrent Clostridioides difficile diarrhea acute Recurrent UTI acute [facility] Work Phone: Hiswoxk general Narrative - Reported* Type Description Date Medical History HTN Medical History hyperlipidemia Medical History microscopic colitis Surgical History T&A Surgical History Quad by-pass Surgical History total hysterectomy Surgical History gall bladder Surgical History Cataracts Surgical History Right Knee Scope Surgical History Sphincterectomy Surgical History Left Rotator Scope Surgical History Hernia Repair 03/24/2012 Hospitalization History See Surgical Hx [facility] Other [facility] general Narrative - Reported* Type Description Date [...] See Surgical Hx Hospitalization History [facility] 12/2022 [facility] Other history general Narrative - Reported* Type Description Date [...] History See Surgical Hx Hospitalization History [facility] 12/2022 [facility] Other History general Narrative - Reported* Type [...] History See Surgical Hx Hospitalization History [facility] 12/2022 [facility] Other History general Narrative - Reported* Type [...] History See Surgical Hx Hospitalization History [facility] 12/2022 [facility] Other Hospital Discharge instructions No data available for this section [facility] No data available for this section [facility] Summary Purpose Family History No Family History [...] November 22, 2017 10:57am Hospital Course Note [facility] Clinical Discharge Summary PERSON INFORMATION Name VINCENT HSU Age 83 Years 1935 Sex FEMALE Language Mongolian PCP Lisandro KRISHNAN, Gypsy Olvera Marital Status Med Service Med/Surg Acct# Arrival 09/25/2019 06:52:00 Visit Reason SURGERY - LEFT TOTAL HIP Acuity LOS Address: [address] [place], [place] [id number] Comment: PROVIDER INFORMATION VITALS INFORMATION Vital Sign [...] Recurrent UTI Reason for Referral Reason DUPLICATE [facility] office - frequent UTIs. Diagnosis 1 Frequent UTI (N39.0) Referral Organization [facility] jah Referring Provider First Name Gypsy Referring Provider Last Name Lisandro Referring Provider Specialty Family [facility] Referred Organization [facility] Referred Provider Beau Hernandez Referred Address [address],[place], [place],[address] Referred Provider Specialty Urology Referral Priority Routine General Notes Tatyana Bojorquez 01:56:52 PM >received today Tatyana Bojorquez 05/14/2022 02:02:41 PM >attachments made, notes locked, referral faxed Tatyana Bojorquez 05/14/2022 03:25:50 PM >DUPLICATE REFERRAL Reason *FU 04/28 [facility] office - recurrent UTIs. Diagnosis 1 Recurrent UTI (N39.0 ) Referral Organization [facility] Referring Provider First Name Gypsy Referring Provider Last Name Lisandro Referring Provider Specialty Family [facility] Referred Organization [facility] Referred Provider Gerson Juárez Referred Address [address],[place], [place],[address] Referred Provider Specialty Urology Referral Priority Routine [...] and content) DATE CREATED AUTHOR 09/17/2018 [facility] DATE CREATED AUTHOR AUTHOR'S ORGANIZ ATION 10/30/2019 [facility] DATE CREATED AUTHOR AUTHOR'S ORGANIZ ATION 05/31/2022 [facility] DATE CREATED AUTHOR AUTHOR'S ORGANIZ ATION 11/15/2022 [facility] DATE CREATED AUTHOR AUTHOR'S ORGANIZ ATION 05/30/2023 [facility] DATE CREATED AUTHOR AUTHOR'S ORGANIZ ATION 06/19/2023 [facility] DATE CREATED AUTHOR AUTHOR'S ORGANIZ ATION 07/29/2023 [facility] DATE CREATED AUTHOR AUTHOR'S ORGANIZ ATION 10/29/2023 [facility] DATE CREATED AUTHOR AUTHOR'S ORGANIZ ATION 10/29/2023 [facility] REASON FOR VISIT (unrecogniz ed section and content) PT HERE WITH COMPLAINTS OF D IARRHEA ( PREVIOUS DR SOSA PATIENT)No InformationPATIENT HERE FOR 8 WEEK FOLLOW UP VISIT, SHE HAS ONE DIARRHEA/ LOOSE STOOL DAILY AND AT LEAST ONCE A WEEK SHE HAS URGENCY WITH ACCIDENTNo InformationNo InformationClinical Acute IllnessPrevious tunde patient here for complaints of diarrhea. patient was started on alosetron, Patient was recently inpatient at [facility] and was diagnosed with gastric ulcerPRESCRIPTIONPATIENT [...] April 15, 2023 End: April 15, 2023 Jacinot Max MD Attending Provider Active Sta rt: [...] Member Role Status Dates Malathi Velázquez APRN [employer] DIRECT[employer]-C Attending Provider Act jamar Start: December 28, 2022 End: December 28, 2022 Team Status: Inactive Member Role Status Valdemar Mcmahon MD Attending Provider Active St art: January 05, 2023 End: January 05, 2023 Team Status: Inactive Member Role Status Valdemar Brown MD Attending Provider Active Start: January [...] BE BASED ON THE PRIMARY CLINICAL RECORDS. [facility]. provides no warranty or guarantee of the accuracy or completeness of information in this document.
== END 2023-11-03 15:28 | disposition home or self-care (01) ==
LOC: WC 15:28
PROVIDERS: PCP Family Medicine; Visit Provider Podiatrist Foot & Ankle Surgery
DX: I87.331 Chronic venous hypertension (idiopathic) with ulcer and inflammation of right lower extremity (principal); L97.812 Non-pressure chronic ulcer of other part of right lower leg with fat layer exposed
CPT/HCPCS: G0463

== ENCOUNTER 2023-11-09 10:25 | Outpatient (OUT) | payer MEDICARE, BC, SELFPAY ==
--- OUTSIDE RECORDS SUMMARY | 2023-11-09 10:30 | XMS_ITS | CCD ---
Author Organization [facility] Care Team Providers Care Executive Business Coach Name Role Phone Giana Griffiths Unavailable Hunter Brown Unavailable MD Gypsy Mcmahon Primary Care Provider MD Gypsy Mcmahon Attending Provider [phone] MD Hunter Brown Attending Provider Gypsy Mcmahon [...] Care Unavailable KAREN ., TIFFANIE VALLES Consulting Unavailjhonaatn e MCMAHON, DR GYPSY Olvera Admitting Unavailable [...] G Ellington Unavailable [place] Attending [facility] Att[facility] Unavailable Malathi Velázquez Unavailable [phone] MD Jacinto Max Attending Provider MD Jacinto Max Referring Provider [phone] MD Gypsy Mcmahon Primary Care Provider Jacinto Max Unavailable MD Jacinto Max Attending Provider [phone] MD Jacinto Max Referring Provider MD Gypsy Mcmahon Primary Care Provider [phone] TuDO Marvin moreno Emergency Provider [phone] MD Gypsy Mcmahon Primary Care Provider DO Monie Wallace Attending Provider [phone] Jacinto Max Admitting Unavailable Jacinto Max Attending Unavailable Jacinto Max Referring Unavailable Gypsy Mcmahon Primary Care Unavailable Madison, Monie Gastelum Attending Unavailable Monie Wallace Admitting Unavailable Mcmahon, Gypsy E Primary Care Unavailable Tupa, Marvin Yancey Admitting Unavailable Marvin Garcia Attending Unavailable Lisandro, Gypsy E Primary Care Unavailable Hunter Brown Admitting UnavailHunter Grimes Attending Unavailabl e Mcmaohn, Gypsy E Primary Care Unavailable ROYAL, MOHAMED F Attending Unavailable MCMAHON, GYPSY E Referring Unavailable MCMAHON, GYPSY E Primary Care Unavailable DEBMALATHI RUBIO Attending Unavailable DEB, MALATHI Olvera Attending Unavailable DEB, MALATHI Olvera Referring Unavailable DBE, MALATHI E Admitting Unavailable DEB, MALATHI E Attending Unavailable DEB, MALATHI E Attending Unavailable ROYAL, MOHAMED F Attending Unavailable ROYAL, MOHAMED F Referring Unavailable MCMAHON, GYPSY E Primary Care Unavailable ROYAL, MOHAMED F Attending Unavailable ROYAL, MOHAMED F Referring Unavailable MCMAHON, GYPSY E Primary Care Unavailable ROYAL, MOHAMED F Referring Unavailable MCMAHON, GYPSY E Primary Care Unavailable MCMAHON, GYPSY E Referring Unavailable MCMAHON, GYPSY E Primary Care Unavailable ROYAL, MOHAMED F Admitting Unavailable ROYAL, MOHAMED F Attending Unavailable MCMAHON, GYPSY E Primary Care Unavailable Allergies Allergy Classification Reported Allergen(s) Allergy Type Date of Onset Reaction(s) Facility (20 sources) Promethazine; Translations: [promethazine] Drug Allergy 02-04-20 13 anaphylaxis, Anaphylaxis (disorder) [facility] (20 sources) histamines Drug allergy Unknown [facility] Other (10 sources) Histamine H2 Inhibitors; Translations: [Histamine H2 Inhibitors] Allergy to substance 07-16-19 13 Unknown Reaction [facility] (20 sources) levoFLOXacin; Translations: [levofloxacin] Drug Allergy 07-01-19 23 Tremor (finding) [facility] (1 source) diphenhydrAMINE Drug Allergy 04-20-19 [facility] (1 source) ezetimibe Drug Allergy 04-20-19 [facility] (1 source) Gemfibrozil Drug Allergy 04-20-19 [facility] (2 sources) Levamisole; Translations: [Phenergan] Drug Allergy 07-16-19 13 [facility] (3 sources) NSAIDs; Translations: [NSAIDS (NON-STEROIDAL ANTI-INFLAMMATORY DRUG)] Drug allergy (disorder) 04-20-19 20 [facility] Rep[facility] (1 source) Nasal Decongestant Drug allergy (disorder) 04-20-19 [facility] (1 source) Darvocet-N 100 Drug allergy (disorder) 04-20-19 [facility] (11 sources) diphenhydrAMINE; Translations: [diphenhydramine] Drug Allergy jumpy,, Unknown [facility] (14 sources) Penicillin; Translations: [penicillin] Drug Allergy Eruption of skin (disorder) [facility] (1 source) Histamine; Translations: [HISTAMINE] Drug Allergy 02-04-20 13 [facility] Repository (6 sources) Penicillins; Translations: [Penicillins] Propensity to adverse reactions 02-25-19 Rash [facility] (2 sources) Antihistamines Allergy to substance 02-26-19 Unknown Reaction [facility] (1 source) Promethazine Drug Allergy 12-07-19 18 [facility] Repository (2 sources) diphenhydrAMINE; Translations: [DIPHENHYDRAMINE HCL] [...] capsule (2 sources) Start: 04-15-2023 lactobacillus acidophilus [id number] unt oral tablet (2 sources) take 1 [...] Ordered Start: 05-14-2022 take 1 capsule by [facility] twelve hours Macrobid 100 MG [...] procedure, # 2 cap(s), Refills(s) 0, Pharmacy: [facility]/pharmacy #[id number], 178, cm, 05/19/22 13:31:00 [...] Start: 01-26-2023 take 1 capsule by mo uth every twenty-four hours Vancomycin HCl 250 MG [...] disease (20 sources) Atherosclerotic heart disease of [place] coronary artery without angina pectoris; Translations: [Coronary [...] (primary) hypertension] Onset: 01-15-2022 05-14-2022 Chronic Gangrene (2 sources) Atherosclerosis of [place] arteries of extremities with gangrene, right leg; Translations: [Atherosclerosis of [place] arteries of extremities with gangrene, right leg] [...] 02-04-2022 Chronic Other aftercare (1 source) 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; Translations: [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] Onset: 03-24-2022 Episodic Other [...] and visceral atherosclerosis (16 sources) 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; Translations: [Atherosclerosis of [place] arteries of left leg with ulceration of [...] 10-29-2022 Unclassified (1 source) PAD Onset: 06-17-2023 Unclassified (1 source) 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 Onset: 11-05-2023 Urinary tract infections (20 sources) Acute cystitis [...] Onset: 11-02-2021 Episodic Other aftercare (1 source) 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; Translations: [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 CURRENT USE OF ASPIRIN] Onset: 11-10-2021 Episodic Other diseases of veins and lymphatics (1 source) Venous insufficiency (chronic) (peripheral); Translations: [VENOUS INSUFF CHRONIC PERIPHERAL] Onset: 11-10-2021 Episodic Unclassified (7 sources) Finding of sensation of bladder 05-19-2022 Unclassified (1 source) CONTACT W/AND (SUSP) EXPOS COVID-19; Translations: [CONTACT W/AND (SUSP) EXPOS COVID-19] Onset: 08-12-2021 Results Test Name Value Interpretation Reference Range Facility POC BUN CREATon 11-05-2023 Creatinine [Mass/Vol] 1.6 mg/dL High 0.4-1.0 [facility] Comment on above: Result Comment: METH OD TRACEABLE TO IDMS STANDARD Performed By: #### I BC #### [facility] ([id number]) [address] [place] [address] GFR/1.73 sq M.predicted among non-blacks MDRD (S/P/Bld) [Vol rate/Area] 31 mL/min/{1.73_m2} Low >59 [facility] Comment on above: Result Comment: Reported eGFR is based on the CKD-EPI 2020 equation that does not use a race coefficient. Performed By: #### I BC #### [facility] ([id number]) [address] [place] [address] Urea nitrogen [Mass/Vol] 25 mg/dL Normal 6-27 [facility] Comment on above: Performed By: #### I BC #### [facility] ([id number]) [address] [place] [address] BASIC METABOLIC PANLon 10-26 Anion gap [Moles/Vol] 11 mmol/L Normal 5-15 [facility] Comment on above: Performed By: #### P INR, 35393-9 #### [facility] ([id number]) [address] [place] [address] #### CBCA, BMP #### [facility] ([id number]) [address], [address] [place] [address] Calcium [Mass/Vol] 9.9 mg/dL Normal 8.5-10.5 [facility] Comment on above: Performed By: #### P INR, 10147-8 #### [facility] ([id number]) [address] [place] [address] #### CBCA, BMP #### [facility] ([id number]) [address] [place] [address] Chloride [Moles/Vol] 103 mmol/L Normal 98-109 [facility] Comment on above: Performed By: #### P INR, 67332-6 #### [facility] ([id number]) [address] [place] [address] #### CBCA, BMP #### [facility] ([id number]) [address] [place] [address] CO2 [Moles/Vol] 27 mmol/L Normal 22-32 [facility] Comment on above: Performed By: #### P INR, 45401-3 #### [facility] ([id number]) [address] [place] [address] 06[address] #### CBCA, BMP #### [facility] ([id number]) [address], [address] [place] [address] Creatinine [Mass/Vol] 1.15 mg/dL High 0.40-1.00 [facility] Comment on above: Result Comment: METH OD TRACEABLE TO IDMS STANDARD Performed By: #### P INR, 12389-7 #### [facility] ([id number]) [address] [place] [address] 055[address] #### CBCA, BMP #### [facility] ([id number]) [address] [address] GFR/1.73 sq M.predicted among non-blacks MDRD (S/P/Bld) [Vol rate/Area] 46 mL/min/{1.73_m2} Low >59 [facility] Comment on above: Result Comment: Reported eGFR is based on the CKD-EPI 2020 equation that does not use a race coefficient. Performed By: #### P INR, 63430-4 #### [facility] ([id number]) [address] [place] [address] #### CBCA, BMP #### [facility] ([id number]) [address] [place] [address] Glucose [Mass/Vol] 70 mg/dL Normal 65-99 [facility] Comment on above: Performed By: #### P INR, 32330-8 #### [facility] ([id number]) [address] [place] [address] 40150 #### CBCA, BMP #### [facility] ([id number]) [address], [address] [place] [address] Potassium [Moles/Vol] 4.1 mmol/L Normal 3.5-5.0 [facility] Comment on above: Performed By: #### P INR, 73244-9 #### [facility] ([id number]) [address] [place] [address] 39459 #### CBCA, BMP #### [facility] ([id number]) [address] [facility] [place] [address] Sodium [Moles/Vol] 141 mmol/L Normal 134-146 [facility] Comment on above: Performed By: #### P INR, 35911-8 #### [facility] ([id number]) [address] [place] [address] 12316 #### CBCA, BMP #### [facility] ([id number]) [address] [facility] [place] [address] Urea nitrogen [Mass/Vol] 24 mg/dL Normal 5-27 [facility] Comment on above: Performed By: #### P INR, 86190-7 #### [facility] ([id number]) [address] [place] [address] 38399 #### CBCA, BMP #### [facility] ([id number]) [address] [facility] [place] [address] CBC AND AUTO DIFFon 10-27-19 24 ABSOLUTE BASOPHIL 0.0 X10E9/L Normal 0.0-0.2 [facility] Comment on above: Performed By: #### P INR, 00896-4 #### [facility] ([id number]) [address] [place] [address] 38693 #### CBCA, BMP #### [facility] ([id number]) [address] [facility] [place] [address] ABSOLUTE NEUTROPHIL 5.5 X10E9/L Normal 1.5-6.6 [facility] Comment on above: Performed By: #### P INR, 36743-7 #### [facility] ([id number]) [address] [place] [address] 77453 #### CBCA, BMP #### [facility] ([id number]) [address] [facility] [address] [place] [address] Basophils/100 WBC (Bld) 0.4 % Normal [facility] Comment on above: Performed By: #### P INR, 87610-8 #### [facility] ([id number]) [address] [place] [address] 13867 #### CBCA, BMP #### [facility] ([id number]) [address] [facility] [address] [place] [address] Eosinophils (Bld) [#/Vol] 0.0 10*3/uL Normal 0.0-0.4 [facility] Comment on above: Performed By: #### P INR, 68400-9 #### [facility] ([id number]) [address] [place] [address] 05564 #### CBCA, BMP #### [facility] ([id number]) [address] [place] [address] Eosinophils/100 WBC (Bld) 0.6 % Normal [facility] Comment on above: Performed By: #### P INR, 56631-5 #### [facility] ([id number]) [address] [place] [address] 62424 #### CBCA, BMP #### [facility] ([id number]) [address] [facility] [address] [place] [address] Erythrocyte distribution width (RBC) [Ratio] 14.7 % Normal 11.5-15.0 [facility] Comment on above: Performed By: #### P INR, 02420-6 #### [facility] ([id number]) [address] [place] [address] 67696 #### CBCA, BMP #### [facility] ([id number]) [address] [place] [address] Hematocrit (Bld) [Volume fraction] 35.1 % Normal 35-47 [facility] Comment on above: Performed By: #### P INR, 74518-5 #### [facility] ([id number]) [address] [place] [address] 84033 #### CBCA, BMP #### [facility] ([id number]) [address], [address] [place] [address] Hemoglobin (Bld) [Mass/Vol] 11.7 g/dL Normal 11.7-15.5 [facility] Comment on above: Performed By: #### P INR, 37738-6 #### [facility] ([id number]) [address] [place] [address] 54305 #### CBCA, BMP #### [facility] ([id number]) [address] [facility] [place] [address] Lymphocytes (Bld) [#/Vol] 1.1 10*3/uL Normal 1.0-3.5 [facility] Comment on above: Performed By: #### P INR, 59819-5 #### [facility] ([id number]) [address] [place] [address] 17617 #### CBCA, BMP #### [facility] ([id number]) [address], [address] [place] [address] Lymphocytes/100 WBC (Bld) 14.7 % Normal [facility] Comment on above: Performed By: #### P INR, 51203-9 #### [facility] ([id number]) [address] [place] [address] 66122 #### CBCA, BMP #### [facility] ([id number]) [address] [place] [address] MCH (RBC) [Entitic mass] 32.5 pg Normal 27-34 [facility] Comment on above: Performed By: #### P INR, 77958-2 #### [facility] ([id number]) [address] [place] [address] 64355 #### CBCA, BMP #### [facility] ([id number]) [address], [address] [place] [address] MCHC (RBC) [Mass/Vol] 33.3 g/dL Normal 32-36 [facility] Comment on above: Performed By: #### P INR, 75927-7 #### [facility] ([id number]) [address] [place] [address] 72839 #### CBCA, BMP #### [facility] ([id number]) [address], [address] [place] [address] MCV (RBC) [Entitic vol] 98 fL Normal 80-100 [facility] Comment on above: Performed By: #### P INR, 89798-3 #### [facility] ([id number]) [address] [place] [address] 85053 #### CBCA, BMP #### [facility] ([id number]) [address], [address] [place] [address] Monocytes (Bld) [#/Vol] 1.1 10*3/uL High 0-0.9 [facility] Comment on above: Performed By: #### P INR, 37484-4 #### [facility] ([id number]) [address] [place] [address] 95065 #### CBCA, BMP #### [facility] ([id number]) [address] [place] [address] Monocytes/100 WBC (Bld) 13.8 % Normal [facility] Comment on above: Performed By: #### P INR, 96342-8 #### [facility] ([id number]) [address] [place] [address] 90165 #### JUANJOSE, BMP #### [facility] ([id number]) [address] [place] [address] Neutrophils/100 WBC (Bld) 70.5 % Normal [facility] Comment on above: Performed By: #### P INR, 71659-9 #### [facility] ([id number]) [address] [place] [address] 87474 #### CBCLavonne, BMP #### [facility] ([id number]) [address] [place] [address] Platelet mean volume (Bld) [Entitic vol] 7.6 fL Normal 7-12 [facility] Comment on above: Performed By: #### P INR, 71209-5 #### [facility] ([id number]) [address] [place] [address] 25042 #### JUANJOSE, BMP #### [facility] ([id number]) [address] [place] [address] Platelets (Bld) [#/Vol] 321 10*3/uL Normal 150-450 [facility] Comment on above: Performed By: #### P INR, 04915-2 #### [facility] ([id number]) [address] [place] [address] 77812 #### CBCA, BMP #### [facility] ([id number]) [address] [place] [address] RBC COUNT 3.59 X10E12/L Low 3.80-5.20 [facility] Comment on above: Performed By: #### P INR, 36058-2 #### [facility] ([id number]) [address] [place] [address] #### JUANJOSE, BMP #### [facility] ([id number]) [address] [place] [address] WBC (Bld) [#/Vol] 7.8 10*3/uL Normal 4.0-11.0 [facility] Comment on above: Performed By: #### P INR, 12003-9 #### [facility] ([id number]) [address] [place] [address] 27834 #### JUANJOSE, BMP #### [facility] ([id number]) [address] [facility] [place] [address] PROTIME AND INRon 10-27-2023 INR Coag (PPP) [Relative time] 1.1 {INR} Normal 0.8-1.1 [facility] Comment on above: Performed By: #### P INR, 94629-0 #### [facility] ([id number]) [address] [place] [address] 77549 #### OSIELA, BMP #### [facility] ([id number]) [address] [facility] [place] [address] PT Coag (PPP) [Time] 12.3 s Normal 9.8-13.2 [facility] Comment on above: Result Comment: NEW REFERENCE RANGE Performed By: #### P INR, 56652-9 #### [facility] ([id number]) [address] [place] [address] 13460 #### CBCA, BMP #### [facility] ([id number]) [address] [place] [address] aPTT Coag (PPP) [Time]on aPTT Coag (Bld) [Time] 36 s Normal 26-37 [facility] Comment on above: Result Comment: NEW REFERENCE RANGE Performed By: #### P INR, 10058-2 #### [facility] ([id number]) [address] [facility], [place] [address] #### CBCA, BMP #### [facility] ([id number]) [address] [facility] [place] [address] Lab Reportson 07-27-2023 Lab Reports [id number]#1.00TIFF Normal [facility] Lab Reports [id number]#[id number] Normal [facility] Blood Urea Nitrogenon 2023 Urea nitrogen [Mass/Vol] 16 mg/dL Normal 7-25 [facility] Comment on above: Order Comment: STAT FOR CT Performed By: #### B EDITH, ANNE MARIE #### [address] abdomen pelvis w conon CT abdomen pelvis w con [facility] [place] [address] [place] [address] CT Scan Report Signed Patient: Vincent Hsu MR#: [id number] 4 : 1935 Acct:[id number] Age/Sex: 87 / F ADM Date: 05/28/23 Loc: CT Room: Type: [facility] Attending Dr: Monie Wallace DO Copies [...] hernia. Impression dictated by: Jm Yen Jr., KranthiORylee05/28/2023 1:34 PM Dictation Location: [place] [address] Transcribed By: [facility] 05/28/23 1334 Dictated By: Jm Yen Jr, DO 05/28/23 1331 Signed By: 05/28/23 1334 Normal [facility] Creatinineon 05-28-2023 Creatinine [Mass/Vol] 1.07 mg/dL Normal 0.60-1.20 [facility] Comment on above: Order Comment: STAT FOR CT Performed By: #### B UN, CREAT #### [facility] [address] [place] [address] GFR/1.73 sq M.predicted MDRD (S/P/Bld) [Vol rate/Area] 50.587 mL/min/{1.73_m2} Normal [facility] Comment on above: Order Comment: STAT FOR CT Result Comment: PERF ORMED BY: [place] [address] PATHOLOGIST PUMP REBUILDER TIEN VELASQUEZ M.D. Performed By: #### B UN, CREAT #### [facility] [address] [place] [address] Creatinine [Mass/volume] in Serum or PlasmaOrdered By: Monie Wallace on 05-28-2023 Creatinine [Mass/Vol] 1.07 mg/dL 0.60-1.[address] [facility] No Panel InformationOrdered By: Monie Wallace on 05-28-2023 Estimated GFR (CKD-EPI) 50.587 mL/Min [facility] Creatinine Clearance (Chem N/A [facility] Urea nitrogen [Mass/volume] in Serum or PlasmaOrdered By: Monie Wallace on 05-28-2023 Urea nitrogen [Mass/Vol] 16 mg/dL 7-25 [facility] No Panel InformationOrdered By: Gypsy Mcmahon on 05-25-2023 E coli Shiga Toxin EIA [facility] Salmonella/Shigella Screen [facility] IgA [Mass/volume] in Serum o r Plasmaon 05-24-2023 IgA [Mass/Vol] 64 mg/dL 64-422 [facility] Comment on above: Performed at: [place] [id number] Director: Salomon Mcarthur PhD, Phone: [phone] No Panel Informationon 05-23 Endomysial IgA Antibody Negative Negative [facility] Serum gliadin peptide IgA an tibody assay (units/volume)on 05-24-2023 Gliadin peptide IgA Qn (S) 4 units 0- [facility] Comment on above: Negative 0 - 19 Weak Positive 20 - 30 Moderate to Strong Positive >30 Serum gliadin peptide IgG an tibody assay (units/volume)on 05-24-2023 Gliadin peptide IgG Qn (S) 2 units 0- [facility] Comment on above: Negative 0 - 19 Weak Positive 20 - 30 Moderate to Strong Positive >30 Serum tissue transglutaminas e (tTG) IgA antibody assay (units/volume)on 05-24-2023 tTG IgA Qn (S) <2 U/mL 0-3 [facility] Comment on above: Negative 0 - 3 Weak Positive 4 - 10 Positive >10 Tissue Transglutaminase (tTG) has been identified as the endomysial antigen. Studies have demonstr- ated that endomysial IgA antibodies have over 99% specificity for gluten sensitive enteropathy. Serum tissue transglutaminas e (tTG) IgG antibody assay (units/volume)on 05-24-2023 tTG IgG Qn (S) <2 U/mL 0-5 [facility] Comment on above: Negative 0 - 5 Weak Positive 6 - 9 Positive >9 [facility] Report[facility] 05-10-2023 Lab Reports [id number]#1.00TIFF Normal [facility] Lab Reports [id number]#1.00TIFF Normal [facility] Lab Reports [id number]#1.00TIFF Normal [facility] [facility] Autom[facility] urine specific gra vity by refractometryon 05-06-2023 Specific gravity Refractometry automated (U) [Rel density] 1.025 1.005-1.02 5 [facility] Bilirubin Auto test strip (U ) [Mass/Vol]on 05-06-2023 Bilirubin (U) [Mass/Vol] Negative NEGATIVE [facility] Color Auto (U)on 05-06-2023 Color (U) YELLOW YELLOW [facility] Ketones Auto test strip (U) [Mass/Vol]on 05-06-2023 Ketones (U) [Mass/Vol] Negative NEGATIVE [facility] Lab Reportson 05-06-2023 Lab Reports [id number]#1.00TIFF Normal [facility] - Microbiology an d Antimicrobial susceptibilityOrdered By: Gypsy Mcmahon on 05-06-2023 Bacteria identified Cx Nom (U) [facility] Protein Auto test strip (U) [Mass/Vol]on 05-06-2023 Protein (U) [Mass/Vol] Negative NEG/TRACE [facility] Specific gravity Auto test s trip (U) [Rel density]on 05-06-2023 Specific gravity (U) [Rel density] CLEAR CLEAR [facility] Urine glucose measurement by test strip (mass/volume)on 05-06-2023 Glucose Test strip (U) [Mass/Vol] Negative NEGATIVE [facility] Urine hemoglobin detection b y automated test stripon 05-06-2023 Hemoglobin Auto test strip Ql (U) TRACE-I NEGATIVE [facility] Urine nitrite detection by a utomated test stripon 05-06-2023 Nitrite Auto test strip Ql (U) SMALL NEGATIVE [facility] Nitrite Auto test strip Ql (U) Positive NEGATIVE [facility] Urobilinogen Auto test strip (U) [Mass/Vol]on 05-06-2023 Urobilinogen Qn (U) 0.2 {Gen'U}/dL 0.2-1.0 [facility] pH Auto test strip (U)on pH (U) 5.5 [pH] 5.0-9.0 [facility] No Panel Informationon 04-30 Clostridium difficile (PCR)(LAB) Negative NEGATIVE [facility] No Panel Informationon 04-06 Clostridium difficile (PCR)(LAB) Positive Negative [facility] Comment on above: Toxigenic C difficil e: PositiveEpidemic Strain Bl/NAP1/027: Presumptive NegativePerformed at: [facility] Lab[address] [id number] Director: Salomon Mcarthur PhD, Phone: [phone] IntraOperative Documentson 0 02-12-2023 IntraOperative Documents [id number]#1.00TIFF Normal [facility] Physician Orderon 02-12-2023 Physician Order [id number]#1.00TIFF Normal [facility] Physician Order [id number]#1.00TIFF Normal [facility] ED Note-Physicianon 02-05-20 ED Note-Physician [id number]#1.00TIFF Normal [facility] Lab Reportson 02-04-2023 Lab Reports [id number]#1.00TIFF Normal [facility] Lab Reports [id number]#1.00TIFF Normal [facility] Lab Reports [id number]#1.00TIFF [facility] Consent for Treatmenton 01-09 Consent for Treatment [id number]#1.00TIFF Normal [facility] Retail - Clinical Noteon Retail - Clinical Note [id number]#1.00TIFF Normal [facility] Lab Reportson 01-28-2023 Lab Reports [id number]#1.00TIFF Normal [facility] Physician Orderon 01-28-2023 Physician Order [id number]#1.00TIFF [facility] Urology Office/Clinic Noteon 01-27-2023 Urology Office/Clinic [...] Urnls Dip Stick Auto w/o Microscopy POC 82936 2. 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 Case discussed w GI, Dr Brown's ENGINEERING GEOLOGIST Katie. he agrees w above plan. 3. [...] the risks of side effects etc. Orders: 68571 Measure Post Void residual urine and/or bladder capacity by US- non-imaging Total time spent reviewing previous notes/results/external documents, preparing the chart, conducting the encounter with the patient and family, ordering tests/medications, and documenting the encounter was 40 minutes. Follow-up With When Contact Information MALATHI VIEIRA PA-C, URL [address] [place] [address] [phone] Additional Instructions: f/u in Spring Patient Education Urinary Tract Infection, Adult, Hfnx-bw-Erpn Documentation recorded by the scribe Caprice Stratton accurately reflects the services(s) I performed and decisions made by me. Authenticated by Malathi Vieira PA-C on 01/27/2023 13:56:47. I, Caprice Stratton, personally scribed for Malathi Vieira PA-C on (more content not included)... [facility] Comment on above: Result Comment: Elec [...] Urnls Dip Stick Auto w/o Microscopy POC 19807 Your Care Team Attending Physician - MALATHI [...] Wednesday. 2023 2:00 PM EDT With: MALATHI VIIERA PA-C Where: [facility] Patient Educationon 01-27-20 23 Patient Education Obstetrics [...] these instructions at home: Medicines ? Take igtz-zni-sgptvga and prescription medicines only as told by [...] provider. Document Revised: 09/06/2020 Document Reviewed: 09/06/2020 [employer] Patient Education ? 2022 [employer] [facility] Lab Reportson 01-25-2023 Lab Reports [id number]#1.00TIFF Normal [facility] Lab Reports [id number]#1.00TIFF [facility] Lab Reports [id number]#1.00TIFF Normal [facility] Lab Reportson 12-03-2022 Lab Reports [id number]#1.00TIFF Normal [facility] Physician Orderon 12-01-2022 Physician Order [id number]#1.00TIFF [facility] Office Visiton 11-11-2022 Follow-up visit [id number] Vincent Hsu 1935 F Date Provider Department Center 11/11/2022 [facility] Family History Problem Relation Age of Onset Aneurysm Mother Heart attack Father Family Status - Relation Status Age at Mother Father Level of Service:89442 NE OFFICE/OUTPATIENT ESTABLISHED LOW MDM 20-29 MIN Normal [facility] Lab Reportson 09-25-2022 Lab Reports [id number]#1.00CD:12 7 [facility] Lab Reports [id number]#1.00CD:12 7 [facility] Physician Orderon 09-23-2022 Physician Order [id number]#1.00CD:12 7 [facility] Screenson 09-23-2022 Screens [id number]#1.00CD:12 7 [facility] Ambulatory Visit Summaryon 0 09-22-2022 Ambulatory [...] ZAZUETA, MALATHI Olvera Where: [facility] Patient Educationon 09-23-19 23 Patient Education [...] these instructions at home: Medicines ? Take aato-yxu-akrzycn and prescription medicines only as told by [...] provider. Document Revised: 09/06/2020 Document Reviewed: 09/06/2020 [employer] Patient Education ? 2022 [email or web address] [facility] Urology Office/Clinic Noteon 09-22-2022 Urology Office/Clinic [...] symptoms not resolved. C&S this morning at [facility] ( not finalized) UTI symptoms Memory issues, [...] resolved per daughter. C&S this morning at [facility] (not finalized) - will call pt w/ [...] up having to send a U.Cx to [facility] so we can review the results. [...] When Contact Information MALATHI VIEIRA PA-C, URL [address] [place] [address] Additional Instructions: Patient Education Urinary Tract Infection, Adult, Uayn-pe-Uzgo I, Jazlyn Lucero, personally scribed for Malathi [...] 3 mg (more content not included)... [facility] Comment on above: Result Comment: Elec tronically Signed By: MALATHI VIEIRA PA-C\.br\Date and Time Signed: 09/22/22 16:16 EDT\.br\Electronically Co-Signed By: Jazlyn Lucerobr\Date and Time Co-Signed: 09/22/22 15:38 EDT Office Visiton 06-30-2022 Follow-up visit [id number] Vincent Hsu 1935 F Date Provider Department Center 06/30/2022 [id number] [facility] Family History Problem Relation Age of Onset Aneurysm Mother Heart attack Father Family Status - Relation Status Age at Mother Father Level of Service:48883 NE OFFICE/OUTPATIENT NEW MODERATE MDM 45-59 MINUTES Normal [facility] CT ABD/PELVIS WO CONon 05-27 CT [...] by: MI NUÑEZ Date: 2022-05-27 10:[address] [facility] CULTURE URINEon 05-14-2022 CULTURE URINE Culture [...] Trimethoprim/Sulfamethoxa zole <=20 S F Normal [facility] Comment on above: Performed By: #### U RCX #### [facility] Laboratory [address] [place] [address] Dr. Anthony Bonilla UA RANDOMon 05-11-2022 Bilirubin Ql (U) Negative Normal NEGATIVE [facility] Comment on above: Performed By: #### U RCX #### [facility] Laboratory [address] [place] [address] Dr. Anthony Bonilla Clarity (U) SL CLOUDY Abnormal CLEAR [facility] Comment on above: Performed By: #### U RCX #### [facility] Laboratory [address] [place] [address] Dr. Anthony Bonilla Color (U) LT. YELLOW Normal YELLOW [facility] Comment on above: Performed By: #### U RCX #### [facility] Laboratory [address] [place] [address] Dr. Anthony Bonilla Glucose Ql (U) Negative Normal NEGATIVE [facility] Comment on above: Performed By: #### U RCX #### [facility] Laboratory [address] [place] [address] Dr. Anthony Bonilla Hemoglobin Ql (U) Negative Normal NEGATIVE [facility] Comment on above: Performed By: #### U RCX #### [facility] Laboratory [address] [place] [address] Dr. Anthony Bonilla Ketones Ql (U) Negative Normal NEGATIVE [facility] Comment on above: Performed By: #### U RCX #### [facility] [address] [place] [address] Dr. Anthony Bonilla LEUKOCYTES MODERATE Abnormal NEGATIVE [facility] Comment on above: Performed By: #### U RCX #### [facility] Laboratory [address] [address] [address] Anthony Bonilla Nitrite Ql (U) Negative Normal NEGATIVE [facility] Comment on above: Performed By: #### U RCX #### [facility] Laboratory [address] [place] [address] Dr. Atnhony Bonilla pH (U) 5.5 [pH] Normal 5-9 [facility] Comment on above: Performed By: #### U RCX #### [facility] Laboratory [address] [address] [address] Anthony Bonilla SPEC GRAVITY 1.020 Normal 1.005-<=1. [address] [facility] Comment on above: Performed By: #### U RCX #### [facility] Laboratory [address] [place] [address] Dr. Anthony Bonilla UA PROTEIN Negative Normal NEGATIVE/ TRACE [facility] Comment on above: Performed By: #### U RCX #### [facility] [address] [place] [address] Dr. Anthony Bonilla Urobilinogen Qn (U) 0.2 {Gen'U}/dL Normal 0.2 - 1. [address] [facility] Comment on above: Performed By: #### U RCX #### [facility] Laboratory [address] [place] [address] Dr. Anthony Bonilla CULTURE URINEon 05-01-2022 CULTURE [...] Trimethoprim/Sulfamethoxa zole <=20 S F Normal [facility] Comment on above: Performed By: #### U RCX #### [facility] [address] [place] [address] Dr. Anthony Bonilla CULTURE URINEon 04-16-2022 CULTURE [...] R F Nitrofurantoin 64 I F Normal [facility] Comment on above: Performed By: #### U RCX #### [facility] Laboratory [address] [place] [address] Dr. Anthony Bonilla UA RANDOMon 04-14-2022 Bilirubin Ql (U) Negative Normal NEGATIVE [facility] Comment on above: Performed By: #### U RCX #### [facility] Laboratory [address] [place] [address] Dr. Anthony Bonilla Clarity (U) CLEAR Normal CLEAR [facility] Comment on above: Performed By: #### U RCX #### [facility] [address] [place] [address] Dr. Anthony Bonilla Color (U) LT. YELLOW Normal YELLOW [facility] Comment on above: Performed By: #### U RCX #### [facility] Laboratory [address] [place], [place] [id number] Dr. Anthony Bonilla Glucose Ql (U) Negative Normal NEGATIVE [facility] Comment on above: Performed By: #### U RCX #### [facility] Laboratory [address] [place] [address] Dr. Anthony Bonilla Hemoglobin Ql (U) Negative Normal NEGATIVE [facility] Comment on above: Performed By: #### U RCX #### [facility] Laboratory [address] [place] [address] Dr. Anthony Bonilla Ketones Ql (U) Negative Normal NEGATIVE [facility] Comment on above: Performed By: #### U RCX #### [facility] [address] [place] [address] Dr. Anthony Bonilla LEUKOCYTES MODERATE Abnormal NEGATIVE [facility] Comment on above: Performed By: #### U RCX #### [facility] [address] [place] [address] Dr. Anthony Bonilla Nitrite Ql (U) Negative Normal NEGATIVE [facility] Comment on above: Performed By: #### U RCX #### [facility] Laboratory [address] [place] [address] Dr. Anthony Bonilla pH (U) 5.5 [pH] Normal 5-[address] [facility] Comment on above: Performed By: #### U RCX #### [facility] Laboratory [address] [place] [address] Dr. Anthony Bonilla SPEC GRAVITY 1.020 Normal 1.005-<=1. [address] [facility] Comment on above: Performed By: #### U RCX #### [facility] Laboratory [address] [place] [address] Dr. Anthony Bonilla UA PROTEIN Negative Normal NEGATIVE/ TRACE [facility] Comment on above: Performed By: #### U RCX #### [facility] [address] [place] [address] Dr. Anthony Bonlila Urobilinogen Qn (U) 0.2 {Gen'U}/dL Normal 0.2 - 1. [address] [facility] Comment on above: Performed By: #### U RCX #### [facility] Laboratory [address] [place], [place] [id number] Dr. Anthony Bonilla Urinalysis - DIPSTICKon 03-12 Appearance (U) clear [employer] Other Bilirubin Ql (U) small [employer] Other Color (U) dark yellow [employer] Other Glucose Ql (U) Negative [employer] Other Hemoglobin Ql (U) Negative [employer] Other Ketones Ql (U) trace [employer] Other Leukocyte esterase Test strip Ql (U) small [employer] Other Nitrite Ql (U) Negative [employer] Other pH (U) 5.0 [pH] [employer] Other Protein Ql (U) Negative [employer] Other Specific gravity (U) [Rel density] 1.015 [employer] Other Urobilinogen (U) [Mass/Vol] 0.2 mg/dL [employer] Other Urinalysis - DIPSTICK Nor [employer] Other Urine Cultureon 03-30-2022 Urine Culture 10,000 [employer] Other Bacteria identified Cx Nom (U) [employer] Other CULTURE URINEon 03-23-2022 CULTURE URINE Isolate 1 Pseudomonas aeruginosa >100,000 cfu/mL of ORGANISM 1 Pseudomonas aeruginosa ANTIBIOTIC M.I.C RX STATUS Piperacillin/Tazobactam 8 S F Ceftazidime 4 S F Imipenem 1 S F Amikacin <=2 S F Gentamicin <=1 S F Tobramycin <=1 S F Ciprofloxacin <=0.25 S F Levofloxacin 0.[address] S F [address] [facility] Comment on above: Performed By: #### U RCX #### [facility] Laboratory [address] [place] [address] Dr. Anthony Bonilla CARDIAC DARWIN ADMITon 023 CK [Catalytic activity/Vol] 137 U/L Normal 26-192 [facility] Comment on above: Performed By: #### U RCX #### [facility] Laboratory [address] [place] [address] Dr. Anthony Bonilla CK.MB [Mass/Vol] 1.05 ng/mL Normal <=3.60 [facility] Comment on above: Performed By: #### U RCX #### [facility] Laboratory [address] [place] [address] Dr. Anthony Bonilla HSTROP 17.6 pg/mL Normal 4.0-51.3 [facility] Comment on above: Result Comment: CUT- OFF POINTS HAVE BEEN ESTABLISHED BASED ON THE FOURTH UNIVERSAL DEFINITIONS OF MYOCARDIAL INFARCTION. THE UPPER REFERENCE LIMIT (URL) OF TROPONIN, DEFINED THE 99TH PERCENTILE OF cTnI DISTRIBUTION IN A REFERENCE POPULATION, HAS BEEN CONFIRMED THE DECISION THRESHOLD FOR [place] DIAGNOSIS. Performed By: #### U RCX #### [facility] Laboratory [address] [place] [address] Dr. Anthony Bonilla CANDIDA 72 ng/mL Normal 9-82 [facility] Comment on above: Performed By: #### U RCX #### [facility] Laboratory [address] [place] [address] Dr. Anthony Bonilla CBC AUTO DIFFon 03-20-2022 BASO # 0.0 103/ul Normal 0.0-0.1 [facility] Comment on above: Performed By: #### C BC #### [facility] Laboratory [address] [place] [address] Dr. Anthony Bonilla Basophils/100 WBC (Bld) 0.3 % Normal 0.2-2.0 [facility] Comment on above: Performed By: #### C BC #### [facility] Laboratory [address] [place] [address] Dr. Anthony Bonilla EO # 0.0 103/ul Normal 0.0-0.7 [facility] Comment on above: Performed By: #### C BC #### [facility] Laboratory [address] [place] [address] Dr. Anthony Bonilla Eosinophils/100 WBC (Bld) 0.1 % Critically low 0.9-7.[address] [facility] Comment on above: Performed By: #### C BC #### [facility] Laboratory [address] [place] [address] Dr. Anthony Bonilla Erythrocyte distribution width (RBC) [Ratio] 15.9 % Critically high 11.0-15.[address] [facility] Comment on above: Performed By: #### C BC #### [facility] Laboratory [address] [place] [address] Dr. Anthony Bonilla Hematocrit (Bld) [Volume fraction] 33.6 % Critically low 36.0-48.[address] [facility] Comment on above: Performed By: #### C BC #### [facility] Laboratory [address] [place] [address] Dr. Anthony Bonilla Hemoglobin (Bld) [Mass/Vol] 11.2 g/dL Critically low 12.0-16.[address] [facility] Comment on above: Performed By: #### C BC #### [facility] Laboratory [address] [place] [address] Dr. Anthony Bonilla IG # 0.04 10e3/ul Critically high 0.00-0.03 [facility] Comment on above: Performed By: #### C BC #### [facility] Laboratory [address] [place] [address] Dr. Anthony Bonilla IG % 0.3 % Normal 0.0-0.5 [facility] Comment on above: Performed By: #### C BC #### [facility] Laboratory [address] [place] [address] Dr. Anthony Bonilla LYMPH # 0.8 103/ul Critically low 1.2-3.8 [facility] Comment on above: Performed By: #### C BC #### [facility] Laboratory [address] [place] [address] Dr. Anthony Bonilla Lymphocytes/100 WBC (Bld) 6.4 % Critically low 20.5-60.[address] [facility] Comment on above: Performed By: #### C BC #### [facility] Laboratory [address] [place] [address] Dr. Anthony Bonilla MANUAL DIFF REQ NO Normal [facility] Comment on above: Performed By: #### C BC #### [facility] Laboratory [address] [place] [address] Dr. Anthony Bonilla MCH (RBC) [Entitic mass] 28.9 pg Normal 26.7-34.[address] [facility] Comment on above: Performed By: #### C BC #### [facility] Laboratory [address] [place] [address] Dr. Anthony Bonilla MCHC (RBC) [Mass/Vol] 33.3 g/dL Normal 29.9-35.2 [facility] Comment on above: Performed By: #### C BC #### [facility] Laboratory [address] [place] [address] Dr. Anthony Bonilla MCV (RBC) [Entitic vol] 86.8 fL Normal 81.0-99.0 [facility] Comment on above: Performed By: #### C BC #### [facility] Laboratory [address] [place] [address] Dr. Anthony Bonilla MONO # 1.1 103/ul Critically high 0.3-0.8 [facility] Comment on above: Performed By: #### C BC #### [facility] Laboratory [address] [place] [address] Dr. Anthony Bonilla Monocytes/100 WBC (Bld) 8.3 % Normal 1.7-12.0 [facility] Comment on above: Performed By: #### C BC #### [facility] Laboratory [address] [place] [address] Dr. Anthony Bonilla NEUT # 11.2 103/ul Critically high 1.4-6.5 [facility] Comment on above: Performed By: #### C BC #### [facility] Laboratory [address] [place] [address] Dr. Anthony Bonilla Neutrophils/100 WBC (Bld) 84.6 % Critically high 43.0-75.0 [facility] Comment on above: Performed By: #### C BC #### [facility] Laboratory [address] [place] [address] Dr. Anthony Bonilla Platelet mean volume (Bld) [Entitic vol] 9.7 fL Normal 9.5-13.[address] [facility] Comment on above: Performed By: #### C BC #### [facility] Laboratory [address] [place] [address] Dr. Anthony Bonilla PLT 274 103/ul Normal 150-450 [facility] Comment on above: Performed By: #### C BC #### [facility] Laboratory [address] [address] [address] Anthony Bonilla RBC 3.87 106/ul Critically low 4.20-5.40 [facility] Comment on above: Performed By: #### C BC #### [facility] Laboratory [address] [place] [address] Dr. Anthony Bonilla WBC 13.2 103/ul Critically high 4.0-11.0 [facility] Comment on above: Performed By: #### C BC #### [facility] Laboratory [address] [place] [address] Dr. Anthony Bonilla CT HEAD WO CONon [...] CLAU SHAH Date: 2022-03-20 20:30 Normal [facility] ER URINE PROFILEon 3 Bilirubin Ql (U) Negative Normal NEGATIVE [facility] Comment on above: Performed By: #### C BC #### [facility] Laboratory [address] [place] [address] Dr. Anthony Bonilla Clarity (U) CLEAR Normal CLEAR [facility] Comment on above: Performed By: #### C BC #### [facility] [address] [place] [address] Dr. Anthony Bonilla Color (U) LT. YELLOW Normal YELLOW [facility] Comment on above: Performed By: #### C BC #### [facility] [address] [place] [address] Dr. Anthony Bonilla ERUAHD A micrscopic examina tion will be performed if indicated. Normal [facility] Comment on above: Performed By: #### C BC #### [facility] [address] [place] [address] Dr. Anthony Bonilla Glucose Ql (U) Negative Normal NEGATIVE The [facility] Comment on above: Performed By: #### C BC #### [facility] [address] [place] [address] Dr. Anthony Bonilla Hemoglobin Ql (U) LARGE Abnormal NEGATIVE The [facility] Comment on above: Performed By: #### C BC #### [facility] [address] [place] [address] Dr. Anthony Bonilla Ketones Ql (U) Negative Normal NEGATIVE [facility] Comment on above: Performed By: #### C BC #### [facility] [address] [place] [address] Dr. Anthony Bonilla LEUKOCYTES SMALL Abnormal NEGATIVE [facility] Comment on above: Performed By: #### C BC #### [facility] [address] [place] [address] Dr. Anthony Bonilla Nitrite Ql (U) Positive Abnormal NEGATIVE [facility] Comment on above: Performed By: #### C BC #### [facility] [address] [place] [address] Dr. Anthony Bonilla pH (U) 7.0 [pH] Normal 5-[address] [facility] Comment on above: Performed By: #### C BC #### [facility] [address] [place] [address] Dr. Anthony Bonilla Protein (U) [Mass/Vol] 30 mg/dL Abnormal NEGAT JAMAR/ TRACE [facility] Comment on above: Performed By: #### C BC #### [facility] [address] [place] [address] Dr. Anthony Bonilla SPEC GRAVITY 1.015 Normal 1.005-<=1. [address] [facility] Comment on above: Performed By: #### C BC #### [facility] [address] [place] [address] Dr. Anthony Bonilla UR MICRO IND INDICATED Normal [facility] Comment on above: Performed By: #### C BC #### [facility] [address] [place] [address] Dr. Anthony Bonilla Urobilinogen Qn (U) 1.0 {Gen'U}/dL Normal 0.2 - 1. [address] [facility] Comment on above: Performed By: #### C BC #### [facility] [address] [place] [address] Dr. Anthony Bonilla PROF 14(COMP METB)on 023 Albumin [Mass/Vol] 3.4 g/dL Normal 3.4-5.0 [facility] Comment on above: Performed By: #### U RCX #### [facility] [address] [place] [address] Dr. Anthony Bonilla Albumin/Globulin [Mass ratio] 1.2 {ratio} Normal [facility] Comment on above: Performed By: #### U RCX #### [facility] [address] [place] [address] Dr. Anthony Bonilla ALP [Catalytic activity/Vol] 26 U/L Critically low 46-[address] [facility] Comment on above: Performed By: #### U RCX #### [facility] [address] [place] [address] Dr. Anthony Bonilla ALT [Catalytic activity/Vol] 21 U/L Normal 14-[address] [facility] Comment on above: Performed By: #### U RCX #### [facility] Laboratory [address] [address] [address] Anthony Bonilla Anion gap [Moles/Vol] 13.7 mmol/L Normal Th [facility] Comment on above: Performed By: #### U RCX #### [facility] [address] [place] [address] Dr. Anthony Bonilla AST [Catalytic activity/Vol] 20 U/L Normal 15-[address] [facility] Comment on above: Performed By: #### U RCX #### [facility] [address] [place] [address] Dr. Anthony Bonilla Bilirubin [Mass/Vol] 1.2 mg/dL Critically high 0.2-1.[address] [facility] Comment on above: Performed By: #### U RCX #### [facility] [address] [place] [address] Dr. Anthony Bonilla Calcium [Mass/Vol] 9.4 mg/dL Normal 8.5-10.1 [facility] Comment on above: Performed By: #### U RCX #### [facility] [address] [place] [address] Dr. Anthony Bonilla Chloride [Moles/Vol] 99 mmol/L Normal 98-[address] [facility] Comment on above: Performed By: #### U RCX #### [facility] [address] [address] [address] Anthony Bonilla CO2 [Moles/Vol] 29.1 mmol/L Normal 21.0-32.0 [facility] Comment on above: Performed By: #### U RCX #### [facility] [address] [address] [address] Anthony Bonilla Creatinine [Mass/Vol] 1.02 mg/dL Normal 0.55-1.[address] [facility] Comment on above: Performed By: #### U RCX #### [facility] [address] [address] [address] Anthony Bonilla EGFR-AF GEORGIAN >60 Normal >=60 [facility] Comment on above: Performed By: #### U RCX #### [facility] [address] [address] [address] Anthony Bonilla EGFR-NON AF GEORGIAN 52 mL/min/1.73m2 Critically low >=[address] [facility] Comment on above: Performed By: #### U RCX #### [facility] [address] [address] [address] Anthony Bonilla Globulin (S) [Mass/Vol] 2.9 g/dL Normal [facility] Comment on above: Performed By: #### U RCX #### [facility] [address] [address] [address] Anthony Bonilla Glucose [Mass/Vol] 98 mg/dL Normal 74-106 [facility] Comment on above: Performed By: #### U RCX #### [facility] [address] [address] [address] Anthony Bonilla Potassium [Moles/Vol] 3.8 mmol/L Normal 3.5-5.[address] [facility] Comment on above: Performed By: #### U RCX #### [facility] [address] [address] [address] Anthony Bonilla Protein [Mass/Vol] 6.3 g/dL Critically low 6.4-8.2 Th [facility] Comment on above: Performed By: #### U RCX #### [facility] [address] [address] [address] Anthony Bonilla Sodium [Moles/Vol] 138 mmol/L Normal 136-145 [facility] Comment on above: Performed By: #### U RCX #### [facility] [address] [address] [address] Anthony Bonilla Urea nitrogen [Mass/Vol] 16.0 mg/dL Normal 7.0-18.[address] [facility] Comment on above: Performed By: #### U RCX #### [facility] [address] [place] [address] Dr. Anthony Bonilla Urea nitrogen/Creatinine [Mass ratio] 15.7 mg/mg Normal [facility] Comment on above: Performed By: #### U RCX #### [facility] [address] [place] [address] Dr. Anthony Bonilla URINE MICROSCOPIC ONLYon BACTERIA LARGE Abnormal NONE SEEN [facility] Comment on above: Performed By: #### C BC #### [facility] [address] [place] [address] Dr. Anthony Bonilla Bacteria identified Cx Nom (U) INDICATED Normal [facility] Comment on above: Performed By: #### C BC #### [facility] [address] [place] [address] Dr. Anthony Bonilla CAST NONE SEEN Normal NONE SEEN [facility] Comment on above: Performed By: #### C BC #### [facility] [address] [place] [address] Dr. Anthony Bonilla Crystals LM Nom (Urine sed) NONE SEEN Normal NONE SEEN [facility] Comment on above: Performed By: #### C BC #### [facility] [address] [place] [address] Dr. Anthony Bonilla Epithelial cells LM Ql (Urine sed) FEW Abnormal NONE SEEN /RARE [facility] Comment on above: Performed By: #### C BC #### [facility] [address] [place] [address] Dr. Anthony Bonilla MUCOUS NONE SEEN Normal NONE SEEN [facility] Comment on above: Performed By: #### C BC #### [facility] [address] [place] [address] Dr. Anthony Bonilla RBC 10-20 Abnormal 0-2 [facility] Comment on above: Performed By: #### C BC #### [facility] [address] [place] [address] Dr. Anthony Bonilla WBC 50-75 Abnormal NONE SEEN [facility] Comment on above: Performed By: #### C BC #### [facility] [address] [place] [address] Dr. Anthony Bonilla CALPROTECTIN, FECALon 2022 Calprotectin, Fecal 416 ug/g Critically high 0-120 [facility] Comment on above: Result Comment: Conc entration Interpretation Follow-Up <16 - 50 ug/g Normal None >50 -120 ug/g Borderline Re-evaluate in 4-6 weeks >120 ug/g Abnormal Repeat as clinically indicated Performed By: #### U RCX #### [facility] [address] [place] [address] Dr. Anthony Bonilla QUANTIFERON TB GOLD PLUSon 0 02-19-2022 QuantiFERON Criteria Comment Normal [facility] Comment on above: Result Comment: Butch [...] test. Performed By: #### U RCX #### [facility] [address] [place] [address] Dr. Anthony Bonilla QuantiFERON Incubation Incubation performed. Normal [facility] Comment on above: Performed By: #### U RCX #### [facility] [address] [place] [address] Dr. Anthony Bonilla QuantiFERON Mitogen Value >10.00 Normal [facility] Comment on above: Performed By: #### U RCX #### [facility] [address] [place] [address] Dr. Anthony Bonilla QuantiFERON Nil Value 0.07 IU/mL Normal [facility] Comment on above: Performed By: #### U RCX #### [facility] [address] [place] [address] Dr. Anthony Bonilla QuantiFERON TB1 Ag Value 0.08 IU/mL Normal [facility] Comment on above: Performed By: #### U RCX #### [facility] [address] [place] [address] Dr. Anthony Bonilla QuantiFERON TB2 Ag Value 0.07 IU/mL Normal [facility] Comment on above: Performed By: #### U RCX #### [facility] [address] [place] [address] Dr. Anthony Bonilla QuantiFERON-TB Gold Plus Negative Normal Negative [facility] Comment on above: Result Comment: No r esponse to M tuberculosis antigens detected. Infection with M tuberculosis is unlikely, but high risk individuals should be considered for additional testing (ATS/IDSA/CDC Clinical Practice Guidelines, 2017). The reference range is an Antigen minus Nil result of <0.35 IU/mL. Chemiluminescence immunoassay methodology Performed By: #### U RCX #### [facility] [address] [place] [address] Dr. Anthony Bonilla HEP B SURFACE ANTIGEN SCREEN on 02-18-2022 HBsAg Screen Negative Normal Negative [facility] Comment on above: Performed By: #### U RCX #### [facility] [address] [place] [address] Dr. Anthony Bonilla HEPATITIS B CORE, IgMon 02-08 Hep B Core Ab, IgM Negative Normal Negative [facility] Comment on above: Performed By: #### U RCX #### [facility] [address] [place] [address] Dr. Anthony Bonilla HEPATITIS B SURFACE ANTIBODY , QUANTon 02-18-2022 Hepatitis B Surf AB Quant <3.1 Critically low Immunity>[address] [facility] Comment on above: Result Comment: Stat us of Immunity Anti-HBs Level Inconsistent with Immunity 0.0 - 9.9 Consistent with Immunity >9.9 Performed By: #### C BC #### [facility] [address] [place] [address] Dr. Anthony Bonilla CBC AUTO DIFFon 02-17-2022 BASO # 0.0 103/ul Normal 0.0-0.[address] [facility] Comment on above: Performed By: #### U RCX #### [facility] [address] [address] [address] Anthony Bonilla Basophils/100 WBC (Bld) 0.4 % Normal 0.2-2.0 [facility] Comment on above: Performed By: #### U RCX #### [facility] [address] [place] [address] Dr. Anthony Bonilla EO # 0.0 103/ul Normal 0.0-0.7 [facility] Comment on above: Performed By: #### U RCX #### [facility] [address] [place] [address] Dr. Anthony Bonilla Eosinophils/100 WBC (Bld) 0.5 % Critically low 0.9-7.0 [facility] Comment on above: Performed By: #### U RCX #### [facility] [address] [place] [address] Dr. Anthony Bonilla Erythrocyte distribution width (RBC) [Ratio] 14.7 % Normal 11.0-15.[address] [facility] Comment on above: Performed By: #### U RCX #### [facility] [address] [place] [address] Dr. Anthony Bonilla Hematocrit (Bld) [Volume fraction] 33.2 % Critically low 36.0-48.[address] [facility] Comment on above: Performed By: #### U RCX #### [facility] [address] [place] [address] Dr. Anthony Bonilla Hemoglobin (Bld) [Mass/Vol] 11.0 g/dL Critically low 12.0-16.0 [facility] Comment on above: Performed By: #### U RCX #### [facility] [address] [place] [address] Dr. Anthony Bonilla IG # 0.02 10e3/ul Normal 0.00-0.03 [facility] Comment on above: Performed By: #### U RCX #### [facility] [address] [place] [address] Dr. Anthony Bonilla IG % 0.2 % Normal 0.0-0.5 [facility] Comment on above: Performed By: #### U RCX #### [facility] [address] [address] [address] Anthony Bonilla LYMPH # 1.3 103/ul Normal 1.2-3.8 [facility] Comment on above: Performed By: #### U RCX #### [facility] [address] [address] [address] Anthony Bonilla Lymphocytes/100 WBC (Bld) 14.8 % Critically low 20.5-60.0 [facility] Comment on above: Performed By: #### U RCX #### [facility] [address] [address] [address] Anthony Bonilla MANUAL DIFF REQ NO Normal [facility] Comment on above: Performed By: #### U RCX #### [facility] [address] [place] [address] Dr. Anthony Bonilla MCH (RBC) [Entitic mass] 29.0 pg Normal 26.7-34.0 [facility] Comment on above: Performed By: #### U RCX #### [facility] [address] [address] [address] Anthony Bonilla MCHC (RBC) [Mass/Vol] 33.1 g/dL Normal 29.9-35.2 [facility] Comment on above: Performed By: #### U RCX #### [facility] [address] [address] [address] Anthony Bonilla MCV (RBC) [Entitic vol] 87.6 fL Normal 81.0-99.0 [facility] Comment on above: Performed By: #### U RCX #### [facility] [address] [address] [address] Anthony Bonilla MONO # 0.8 103/ul Normal 0.3-0.8 [facility] Comment on above: Performed By: #### U RCX #### [facility] [address] [address] [address] Anthony Bonilla Monocytes/100 WBC (Bld) 9.6 % Normal 1.7-12.0 [facility] Comment on above: Performed By: #### U RCX #### [facility] [address] [address] [address] Anthony Bonilla NEUT # 6.3 103/ul Normal 1.4-6.5 [facility] Comment on above: Performed By: #### U RCX #### [facility] [address] [address] [address] Anthony Bonilla Neutrophils/100 WBC (Bld) 74.5 % Normal 43.0-75.[address] [facility] Comment on above: Performed By: #### U RCX #### [facility] [address] [address] [address] Anthony Bonilla Platelet mean volume (Bld) [Entitic vol] 9.8 fL Normal 9.5-13.5 [facility] Comment on above: Performed By: #### U RCX #### [facility] [address] [address] [address] Anthony Bonilla PLT 318 103/ul Normal 150-[address] [facility] Comment on above: Performed By: #### U RCX #### [facility] [address] [address] [address] Anthony Bonilla RBC 3.79 106/ul Critically low 4.20-5.40 [facility] Comment on above: Performed By: #### U RCX #### [facility] [address] [address] [address] Anthony Bonilla WBC 8.5 103/ul Normal 4.0-11.[address] [facility] Comment on above: Performed By: #### U RCX #### [facility] [address] [address] [address] Anthony Bonilla PROF 14(COMP METB)on 023 Albumin [Mass/Vol] 3.6 g/dL Normal 3.4-5.0 [facility] Comment on above: Performed By: #### U RCX #### [facility] [address] [place] [address] Dr. Anthony Bonilla Albumin/Globulin [Mass ratio] 1.2 {ratio} Normal [facility] Comment on above: Performed By: #### U RCX #### [facility] [address] [address] [address] Anthony Bonilla ALP [Catalytic activity/Vol] 27 U/L Critically low 46-[address] [facility] Comment on above: Performed By: #### U RCX #### [facility] [address] [address] [address] Anthony Bonilla ALT [Catalytic activity/Vol] 21 U/L Normal 14-[address] [facility] Comment on above: Performed By: #### U RCX #### [facility] [address] [address] [address] Anthony Bonilla Anion gap [Moles/Vol] 13.5 mmol/L Normal Th [facility] Comment on above: Performed By: #### U RCX #### [facility] [address] [address] [address] Anthony Bonilla AST [Catalytic activity/Vol] 19 U/L Normal 15-[address] [facility] Comment on above: Performed By: #### U RCX #### [facility] [address] [address] [address] Anthony Bonilla Bilirubin [Mass/Vol] 0.6 mg/dL Normal 0.2-1.[address] [facility] Comment on above: Performed By: #### U RCX #### [facility] [address] [place] [address] Dr. Anthony Bonilla Calcium [Mass/Vol] 9.2 mg/dL Normal 8.5-10.1 [facility] Comment on above: Performed By: #### U RCX #### [facility] [address] [address] [address] Anthony Bonilla Chloride [Moles/Vol] 104 mmol/L Normal 98-[address] [facility] Comment on above: Performed By: #### U RCX #### [facility] [address] [address] [address] Anthony Bonilla CO2 [Moles/Vol] 28.9 mmol/L Normal 21.0-32.0 [facility] Comment on above: Performed By: #### U RCX #### [facility] [address] [address] [address] Anthony Bonilla Creatinine [Mass/Vol] 1.21 mg/dL Critically high 0.55-1.[address] [facility] Comment on above: Performed By: #### U RCX #### [facility] [address] [address] [address] Anthony Bonilla EGFR-AF GEORGIAN 51 mL/min/1.73m2 Critically low >=[address] [facility] Comment on above: Performed By: #### U RCX #### [facility] [address] [address] [address] Anthony Bonilla EGFR-NON AF GEORGIAN 42 mL/min/1.73m2 Critically low >=[address] [facility] Comment on above: Performed By: #### U RCX #### [facility] [address] [address] [address] Anthony Bonilla Globulin (S) [Mass/Vol] 3.1 g/dL Normal [facility] Comment on above: Performed By: #### U RCX #### [facility] [address] [address] [address] Anthony Bonilla Glucose [Mass/Vol] 107 mg/dL Critically high 74-106 [facility] Comment on above: Performed By: #### U RCX #### [facility] [address] [address] [address] Anthony Bonilla Potassium [Moles/Vol] 3.4 mmol/L Critically low 3.5-5.[address] [facility] Comment on above: Performed By: #### U RCX #### [facility] [address] [address] [address] Anthony Bonilla Protein [Mass/Vol] 6.7 g/dL Normal 6.4-8.2 [facility] Comment on above: Performed By: #### U RCX #### [facility] [address] [address] [address] Anthony Bonilla Sodium [Moles/Vol] 143 mmol/L Normal 136-145 [facility] Comment on above: Performed By: #### U RCX #### [facility] [address] [address] [address] Anthony Bonilla Urea nitrogen [Mass/Vol] 22.0 mg/dL Critically high 7.0-18.[address] [facility] Comment on above: Performed By: #### U RCX #### [facility] [address] [address] [address] Anthony Bonilla Urea nitrogen/Creatinine [Mass ratio] 18.2 mg/mg Normal [facility] Comment on above: Performed By: #### U RCX #### [facility] [address] [address] [address] Anthony Bonilla Automated erythrocytes count in urine sediment (number/area)Ordered By: Gypsy Mcmahon on 02-16-2022 RBC Auto (Urine sed) [#/Area] 0-1 [HPF] 0-4 [facility] Automated leukocytes count i n urine sediment (number/area)Ordered By: Gypsy Mcmahon on 02-16-2022 WBC Auto (Urine sed) [#/Area] 20-49 [HPF] 0-4 [facility] Bilirubin Test strip Ql (U)O rdered By: Gypsy Mcmahon on 02-16-2022 Bilirubin Ql (U) Negative Negative [facility] Color Auto (U)Ordered By: Nicole Mcmahon on 02-16-2022 Color (U) Yellow Yellow [facility] Ketones Auto test strip (U) [Mass/Vol]Ordered By: Gypsy Mcmahon on 02-16-2022 Ketones (U) [Mass/Vol] Trace Negative [facility] - UrinalysisOrder ed By: Gypsy Mcmahon on 02-16-2022 Hyaline casts LM Ql (Urine sed) 9-19 [LPF] 0-8 [facility] Nitrite Test strip Ql (U)Ord ered By: Gypsy Mcmahon on 02-16-2022 Nitrite Ql (U) Positive Negative [facility] Protein Auto test strip (U) [Mass/Vol]Ordered By: Gypsy Mcmahon on 02-16-2022 Protein (U) [Mass/Vol] Negative Negative [facility] Specific gravity Auto test s trip (U) [Rel density]Ordered By: Gypsy Mcmahon on 02-16-2022 Specific gravity (U) [Rel density] 1.018 1.001-1.03 0 [facility] Squamous epithelial cells de tection in urine sediment by light microscopyOrdered By: Gypsy Mcmahon on 02-16-2022 Epithelial cells.squamous LM Ql (Urine sed) 5-9 [HPF] 0-2 [facility] Urine Cultureon 02-16-2022 Urine Culture >100,000 [employer] Other Urine Culture <16 Susceptible [facility] Other Urine Culture <8/4 Susceptible [facility] Other Urine Culture <4 Susceptible [facility] Other Urine Culture <2 Susceptible [employer] Other Urine Culture <1 Susceptible [employer] Other Urine Culture <0.25 Susceptible [employer] Other Urine Culture <0.5 Susceptible [employer] Other Urine Culture <32 Susceptible [employer] Other Urine Culture <0.5/9.5 Susceptible [employer] Other Urine bacteria detection by automated methodOrdered By: Gypsy Mcmahon on 02-16-2022 Bacteria Auto Ql (U) 2+ None Seen [facility] Urine clarity by refractomet ry automatedOrdered By: Gypsy Mcmahon on 02-16-2022 Clarity Refractometry automated (U) Cloudy Clear [facility] Urine culture routineOrdered By: Gypsy Mcmahon on 02-16-2022 Bacteria identified Cx Nom (U) Klebsiella variicola [facility] Urine glucose measurement by automated test strip (mass/volume)Ordered By: Gypsy Mcmahon on 02-16-2022 Glucose Auto test strip (U) [Mass/Vol] Normal mg/dL Normal [facility] Urine hemoglobin detection b y automated test stripOrdered By: Gypsy Mcmahon on 02-16-2022 Hemoglobin Auto test strip Ql (U) Negative Negative [facility] Urine leukocyte esterase det ection by automated test stripOrdered By: Gypsy Mcmahon on 02-16-2022 Leukocyte esterase Auto test strip Ql (U) 2+ Negative [facility] Urobilinogen Auto test strip (U) [Mass/Vol]Ordered By: Gypsy Mcmahon on 02-16-2022 Urobilinogen (U) [Mass/Vol] Normal mg/dL Normal [facility] pH Auto test strip (U)Ordere d By: Gypsy Mcmahon on 02-16-2022 pH (U) 5.5 [pH] 5.0-9.0 [facility] CBC AUTO DIFFon 01-15-2022 BASO # 0.0 103/ul Normal 0.0-0.[address] [facility] Comment on above: Performed By: #### C BC #### [facility] [address] [place] [address] Dr. Anthony Bonilla Basophils/100 WBC (Bld) 0.5 % Normal 0.2-2.[address] [facility] Comment on above: Performed By: #### C BC #### [facility] [address] [place] [address] Dr. Anthony Bonilla EO # 0.1 103/ul Normal 0.0-0.[address] [facility] Comment on above: Performed By: #### C BC #### [facility] [address] [place] [address] Dr. Anthony Bonilla Eosinophils/100 WBC (Bld) 0.9 % Normal 0.9-7.[address] [facility] Comment on above: Performed By: #### C BC #### [facility] [address] [place] [address] Dr. Anthony Bonilla Erythrocyte distribution width (RBC) [Ratio] 14.8 % Normal 11.0-15.[address] [facility] Comment on above: Performed By: #### C BC #### [facility] [address] [place] [address] Dr. Anthony Bonilla Hematocrit (Bld) [Volume fraction] 30.3 % Critically low 36.0-48.[address] [facility] Comment on above: Performed By: #### C BC #### [facility] [address] [place] [address] Dr. Anthony Bonilla Hemoglobin (Bld) [Mass/Vol] 9.8 g/dL Critically low 12.0-16.[address] [facility] Comment on above: Performed By: #### C BC #### [facility] [address] [place] [address] Dr. Anthony Bonilla IG # 0.03 10e3/ul Normal 0.00-0.[address] [facility] Comment on above: Performed By: #### C BC #### [facility] [address] [place] [address] Dr. Anthony Bonilla IG % 0.3 % Normal 0.0-0.[address] [facility] Comment on above: Performed By: #### C BC #### [facility] [address] [place] [address] Dr. Anthony Bonilla LYMPH # 1.4 103/ul Normal 1.2-3.[address] [facility] Comment on above: Performed By: #### C BC #### [facility] [address] [place] [address] Dr. Anthony Bonilla Lymphocytes/100 WBC (Bld) 15.7 % Critically low 20.5-60.[address] [facility] Comment on above: Performed By: #### C BC #### [facility] [address] [place] [address] Dr. Anthony Bonilla MANUAL DIFF REQ NO Normal [facility] Comment on above: Performed By: #### C BC #### [facility] [address] [place] [address] Dr. Anthony Bonilla MCH (RBC) [Entitic mass] 30.0 pg Normal 26.7-34.[address] [facility] Comment on above: Performed By: #### C BC #### [facility] [address] [place] [address] Dr. Anthony Bonilla MCHC (RBC) [Mass/Vol] 32.3 g/dL Normal 29.9-35.[address] [facility] Comment on above: Performed By: #### C BC #### [facility] [address] [place] [address] Dr. Anthony Bonilla MCV (RBC) [Entitic vol] 92.7 fL Normal 81.0-99.[address] [facility] Comment on above: Performed By: #### C BC #### [facility] [address] [place] [address] Dr. Anthony Bonilla MONO # 1.1 103/ul Critically high 0.3-0.8 [facility] Comment on above: Performed By: #### C BC #### [facility] [address] [place] [address] Dr. Anthony Bonilla Monocytes/100 WBC (Bld) 12.0 % Normal 1.7-12.[address] [facility] Comment on above: Performed By: #### C BC #### [facility] [address] [place] [address] Dr. Anthony Bonilla NEUT # 6.2 103/ul Normal 1.4-6.[address] [facility] Comment on above: Performed By: #### C BC #### [facility] [address] [place] [address] Dr. Anthony Bonilla Neutrophils/100 WBC (Bld) 70.6 % Normal 43.0-75.0 [facility] Comment on above: Performed By: #### C BC #### [facility] [address] [place] [address] Dr. Anthony Bonilla Platelet mean volume (Bld) [Entitic vol] 9.8 fL Normal 9.5-13.5 [facility] Comment on above: Performed By: #### C BC #### [facility] [address] [place] [address] Dr. Anthony Bonilla PLT 305 103/ul Normal 150-450 [facility] Comment on above: Performed By: #### C BC #### [facility] [address] [place], [place] [id number] Dr. Anthony Bonilla RBC 3.27 106/ul Critically low 4.20-5.40 [facility] Comment on above: Performed By: #### C BC #### [facility] [address] [place] [address] Dr. Anthony Bonilla WBC 8.7 103/ul Normal 4.0-11.0 [facility] Comment on above: Performed By: #### C BC #### [facility] [address] [address] [address] Anthony Bonilla PROF CHEM 8 (BAS METB)on Anion gap [Moles/Vol] 12.2 mmol/L Normal Th [facility] Comment on above: Performed By: #### U RCX #### [facility] [address] [place] [address] Dr. Anthony Bonilla Calcium [Mass/Vol] 9.1 mg/dL Normal 8.5-10.1 [facility] Comment on above: Performed By: #### U RCX #### [facility] [address] [place] [address] Dr. Anthony Bonilla Chloride [Moles/Vol] 104 mmol/L Normal 98-[address] [facility] Comment on above: Performed By: #### U RCX #### [facility] [address] [place] [address] Dr. Anthony Bonilla CO2 [Moles/Vol] 24.4 mmol/L Normal 21.0-32.0 [facility] Comment on above: Performed By: #### U RCX #### [facility] [address] [place] [address] Dr. Anthony Bonilla Creatinine [Mass/Vol] 1.20 mg/dL Critically high 0.55-1.[address] [facility] Comment on above: Performed By: #### U RCX #### [facility] [address] [place] [address] Dr. Anthony Bonilla EGFR-AF GEORGIAN 52 mL/min/1.73m2 Critically low >=60 [facility] Comment on above: Performed By: #### U RCX #### [facility] [address] [place] [address] Dr. Anthony Bonilla EGFR-NON AF GEORGIAN 43 mL/min/1.73m2 Critically low >=[address] [facility] Comment on above: Performed By: #### U RCX #### [facility] [address] [place] [address] Dr. Anthony Bonilla Glucose [Mass/Vol] 81 mg/dL Normal 74-106 [facility] Comment on above: Performed By: #### U RCX #### [facility] [address] [place] [address] Dr. Anthony Bonilla Potassium [Moles/Vol] 3.6 mmol/L Normal 3.5-5.[address] [facility] Comment on above: Performed By: #### U RCX #### [facility] [address] [place] [address] Dr. Anthony Bonilla Sodium [Moles/Vol] 137 mmol/L Normal 136-145 [facility] Comment on above: Performed By: #### U RCX #### [facility] [address] [place] [address] Dr. Anthony Bonilla Urea nitrogen [Mass/Vol] 21.0 mg/dL Critically high 7.0-18.[address] [facility] Comment on above: Performed By: #### U RCX #### [facility] [address] [place] [address] Dr. Anthony Bonilla Urea nitrogen/Creatinine [Mass ratio] 17.5 mg/mg Normal [facility] Comment on above: Performed By: #### U RCX #### [facility] [address] [place] [address] Dr. Anthony Bonilla CULTURE URINEon 12-29-2021 CULTURE [...] Trimethoprim/Sulfamethoxa zole <=20 S F Normal [facility] Comment on above: Performed By: #### U RCX #### [facility] [address] [place] [address] Dr. Anthony Bonilla ER URINE PROFILEon 2 Bilirubin Ql (U) SMALL Abnormal NEGATIVE [facility] Comment on above: Performed By: #### C BC #### [facility] [address] [place] [address] Dr. Anthony Bonilla Clarity (U) SL CLOUDY Abnormal CLEAR [facility] Comment on above: Performed By: #### C BC #### [facility] [address] [place] [address] Dr. Anthony Bonilla Color (U) YELLOW Normal YELLOW [facility] Comment on above: Performed By: #### C BC #### [facility] [address] [place] [address] Dr. Anthony BANGURA A micrscopic examina tion will be performed if indicated. Normal [facility] Comment on above: Performed By: #### C BC #### [facility] [address] [place] [address] Dr. Anthony Bonilla Glucose Ql (U) Negative Normal NEGATIVE [facility] Comment on above: Performed By: #### C BC #### [facility] [address] [place] [address] Dr. Anthony Bonilla Hemoglobin Ql (U) Negative Normal NEGATIVE [facility] Comment on above: Performed By: #### C BC #### [facility] [address] [place] [address] Dr. Anthony Bonilla Ketones Ql (U) TRACE Abnormal NEGATIVE [facility] Comment on above: Performed By: #### C BC #### [facility] [address] [place] [address] Dr. Anthony Bonilla LEUKOCYTES MODERATE Abnormal NEGATIVE [facility] Comment on above: Performed By: #### C BC #### [facility] [address] [place] [address] Dr. Anthony Bonilla Nitrite Ql (U) Positive Abnormal NEGATIVE [facility] Comment on above: Performed By: #### C BC #### [facility] [address] [place] [address] Dr. Anthony Bonilla pH (U) 7.5 [pH] Normal 5-[address] [facility] Comment on above: Performed By: #### C BC #### [facility] [address] [place] [address] Dr. Anthony Bonilla Protein (U) [Mass/Vol] 30 mg/dL Abnormal NEGAT JAMAR/ TRACE [facility] Comment on above: Performed By: #### C BC #### [facility] [address] [place] [address] Dr. Anthony Bonilla SPEC GRAVITY 1.020 Normal 1.005-<=1. [address] [facility] Comment on above: Performed By: #### C BC #### [facility] [address] [place] [address] Dr. Anthony Bonilla UR MICRO IND INDICATED Normal [facility] Comment on above: Performed By: #### C BC #### [facility] [address] [place] [address] Dr. Anthony Bonilla Urobilinogen Qn (U) 0.2 {Gen'U}/dL Normal 0.2 - 1. [address] [facility] Comment on above: Performed By: #### C BC #### [facility] [address] [place] [address] Dr. Anthony Bonilla URINE MICROSCOPIC ONLYon BACTERIA TRACE Abnormal NONE SEEN [facility] Comment on above: Performed By: #### C BC #### [facility] [address] [place] [address] Dr. Anthony Bonilla Bacteria identified Cx Nom (U) INDICATED Normal [facility] Comment on above: Performed By: #### C BC #### [facility] [address] [place] [address] Dr. Anthony Bonilla CAST NONE SEEN Normal NONE SEEN [facility] Comment on above: Performed By: #### C BC #### [facility] [address] [place] [address] Dr. Anthony Bonilla Crystals LM Nom (Urine sed) NONE SEEN Normal NONE SEEN [facility] Comment on above: Performed By: #### C BC #### [facility] [address] [place] [address] Dr. Anthony Bonilla Epithelial cells LM Ql (Urine sed) FEW Abnormal NONE SEEN /RARE [facility] Comment on above: Performed By: #### C BC #### [facility] [address] [place] [address] Dr. Anthony Bonilla MUCOUS NONE SEEN Normal NONE SEEN [facility] Comment on above: Performed By: #### C BC #### [facility] [address] [place] [address] Dr. Anthony Bonilla RBC 0-2 Normal 0-[address] [facility] Comment on above: Performed By: #### C BC #### [facility] [address] [place] [address] Dr. Anthony Bonilla WBC 5-10 Abnormal NONE SEEN [facility] Comment on above: Performed By: #### C BC #### [facility] [address] [place] [address] Dr. Anthony Bonilla PRBC LEUKOREDUCEDon 11-20-19 PRBC LEUKOREDUCED Cross Match Result Compatible Unit Blood Type A Pos Unit Number [id number] Status Information Transfused Product ID Red Blood Cells Product Code [id number] Normal [facility] Comment on above: Performed By: #### P RBC #### [facility] [address] [place] [address] Dr. Anthony Bonilla CBC AUTO DIFFon 11-10-2021 BASO # 0.0 103/ul Normal 0.0-0.[address] [facility] Comment on above: Performed By: #### C BC #### [facility] [address] [place] [address] Dr. Anthony Bonilla Basophils/100 WBC (Bld) 0.7 % Normal 0.2-2.[address] [facility] Comment on above: Performed By: #### C BC #### [facility] [address] [place] [address] Dr. Anthony Bonilla EO # 0.2 103/ul Normal 0.0-0.[address] [facility] Comment on above: Performed By: #### C BC #### [facility] [address] [place] [address] Dr. Anthony Bonilla Eosinophils/100 WBC (Bld) 2.7 % Normal 0.9-7.[address] [facility] Comment on above: Performed By: #### C BC #### [facility] [address] [place] [address] Dr. Anthony Bonilla Erythrocyte distribution width (RBC) [Ratio] 16.3 % Critically high 11.0-15.[address] [facility] Comment on above: Performed By: #### C BC #### [facility] [address] [place] [address] Dr. Anthony Bonilla Hematocrit (Bld) [Volume fraction] 29.0 % Critically low 36.0-48.[address] [facility] Comment on above: Performed By: #### C BC #### [facility] [address] [place] [address] Dr. Anthony Bonilla Hemoglobin (Bld) [Mass/Vol] 9.4 g/dL Critically low 12.0-16.[address] [facility] Comment on above: Performed By: #### C BC #### [facility] [address] [place] [address] Dr. Anthony Bonilla IG # 0.04 10e3/ul Critically high 0.00-0.03 [facility] Comment on above: Performed By: #### C BC #### [facility] [address] [place] [address] Dr. Anthony Bonilla IG % 0.7 % Critically high 0.0-0.5 [facility] Comment on above: Performed By: #### C BC #### [facility] [address] [place] [address] Dr. Anthony Bonilla LYMPH # 1.2 103/ul Normal 1.2-3.[address] [facility] Comment on above: Performed By: #### C BC #### [facility] [address] [place] [address] Dr. Anthony Bonilla Lymphocytes/100 WBC (Bld) 21.5 % Normal 20.5-60.[address] [facility] Comment on above: Performed By: #### C BC #### [facility] [address] [place] [address] Dr. Anthony Bonilla MANUAL DIFF REQ NO Normal [facility] Comment on above: Performed By: #### C BC #### [facility] [address] [place] [address] Dr. Anthony Bonilla MCH (RBC) [Entitic mass] 32.3 pg Normal 26.7-34.[address] [facility] Comment on above: Performed By: #### C BC #### [facility] [address] [place] [address] Dr. Anthony Bonilla MCHC (RBC) [Mass/Vol] 32.4 g/dL Normal 29.9-35.[address] [facility] Comment on above: Performed By: #### C BC #### [facility] [address] [place] [address] Dr. Anthony Bonilla MCV (RBC) [Entitic vol] 99.7 fL Critically high 81.0-99.[address] [facility] Comment on above: Performed By: #### C BC #### [facility] [address] [place] [address] Dr. Anthony Bonilla MONO # 0.7 103/ul Normal 0.3-0.8 [facility] Comment on above: Performed By: #### C BC #### [facility] [address] [place] [address] Dr. Anthony Bonilla Monocytes/100 WBC (Bld) 12.6 % Critically high 1.7-12.[address] [facility] Comment on above: Performed By: #### C BC #### [facility] [address] [place] [address] Dr. Anthony Bonilla NEUT # 3.4 103/ul Normal 1.4-6.[address] [facility] Comment on above: Performed By: #### C BC #### [facility] [address] [place] [address] Dr. Anthony Bonilla Neutrophils/100 WBC (Bld) 61.8 % Normal 43.0-75.[address] [facility] Comment on above: Performed By: #### C BC #### [facility] [address] [place] [address] Dr. Anthony Bonilla Platelet mean volume (Bld) [Entitic vol] 9.0 fL Critically low 9.5-13.[address] [facility] Comment on above: Performed By: #### C BC #### [facility] [address] [place] [address] Dr. Anthony Bonilla PLT 429 103/ul Normal 150-[address] [facility] Comment on above: Performed By: #### C BC #### [facility] [address] [place] [address] Dr. Anthony Bonilla RBC 2.91 106/ul Critically low 4.20-5.40 [facility] Comment on above: Performed By: #### C BC #### [facility] [address] [place] [address] Dr. Anthony Bonilla WBC 5.5 103/ul Normal 4.0-11.[address] [facility] Comment on above: Performed By: #### C BC #### [facility] [address] [place] [address] Dr. Anthony Bonilla PROF CHEM 8 (BAS METB)on Anion gap [Moles/Vol] 11.0 mmol/L Normal [facility] Comment on above: Performed By: #### B MP #### [facility] [address] [place] [address] Dr. Anthony Bonilla Calcium [Mass/Vol] 9.2 mg/dL Normal 8.5-10.1 [facility] Comment on above: Performed By: #### B MP #### [facility] [address] [place] [address] Dr. Anthony Bonilla Chloride [Moles/Vol] 107 mmol/L Normal 98-[address] [facility] Comment on above: Performed By: #### B MP #### [facility] [address] [address] [address] Anthony Bonilla CO2 [Moles/Vol] 27.4 mmol/L Normal 21.0-32.0 [facility] Comment on above: Performed By: #### B MP #### [facility] [address] [address] [address] Anthony Bonilla Creatinine [Mass/Vol] 1.12 mg/dL Critically high 0.55-1.[address] [facility] Comment on above: Performed By: #### B MP #### [facility] [address] [place] [address] Dr. Anthony Bonilla EGFR-AF GEORGIAN 56 mL/min/1.73m2 Critically low >=[address] [facility] Comment on above: Performed By: #### B MP #### [facility] [address] [place] [address] Dr. Anthony Bonilla EGFR-NON AF GEORGIAN 46 mL/min/1.73m2 Critically low >=[address] [facility] Comment on above: Performed By: #### B MP #### [facility] [address] [place] [address] Dr. Anthony Bonilla Glucose [Mass/Vol] 89 mg/dL Normal 74-106 [facility] Comment on above: Performed By: #### B MP #### [facility] [address] [address] [address] Anthony Bonilla Potassium [Moles/Vol] 4.4 mmol/L Normal 3.5-5.[address] [facility] Comment on above: Performed By: #### B MP #### [facility] [address] [address] [address] Anthony Bonilla Sodium [Moles/Vol] 141 mmol/L Normal 136-145 [facility] Comment on above: Performed By: #### B MP #### [facility] [address] [address] [address] Anthony Bonilla Urea nitrogen [Mass/Vol] 18.0 mg/dL Normal 7.0-18.[address] [facility] Comment on above: Performed By: #### B MP #### [facility] [address] [place] [address] Dr. Anthony Bonilla Urea nitrogen/Creatinine [Mass ratio] 16.1 mg/mg Normal [facility] Comment on above: Performed By: #### B MP #### [facility] [address] [place] [address] Dr. Anthony Bonilla CBC AUTO DIFFon 11-04-2021 BASO # 0.0 103/ul Normal 0.0-0.[address] [facility] Comment on above: Performed By: #### C BC #### [facility] [address] [place] [address] Dr. Anthony Bonilla Basophils/100 WBC (Bld) 0.2 % Normal 0.2-2.[address] [facility] Comment on above: Performed By: #### C BC #### [facility] [address] [place] [address] Dr. Anthony Bonilla EO # 0.1 103/ul Normal 0.0-0.[address] [facility] Comment on above: Performed By: #### C BC #### [facility] [address] [place] [address] Dr. Anthony Bonilla Eosinophils/100 WBC (Bld) 0.8 % Critically low 0.9-7.[address] [facility] Comment on above: Performed By: #### C BC #### [facility] [address] [place] [address] Dr. Anthony Bonilla Erythrocyte distribution width (RBC) [Ratio] 16.7 % Critically high 11.0-15.[address] [facility] Comment on above: Performed By: #### C BC #### [facility] [address] [place] [address] Dr. Anthony Bonilla Hematocrit (Bld) [Volume fraction] 25.6 % Critically low 36.0-48.[address] [facility] Comment on above: Performed By: #### C BC #### [facility] [address] [place] [address] Dr. Anthony Bonilla Hemoglobin (Bld) [Mass/Vol] 8.5 g/dL Critically low 12.0-16.[address] [facility] Comment on above: Performed By: #### C BC #### [facility] [address] [place] [address] Dr. Anthony Bonilla IG # 0.05 10e3/ul Critically high 0.00-0.03 [facility] Comment on above: Performed By: #### C BC #### [facility] [address] [place] [address] Dr. Anthony Bonilla IG % 0.5 % Normal 0.0-0.[address] [facility] Comment on above: Performed By: #### C BC #### [facility] [address] [place] [address] Dr. Anthony Bonilla LYMPH # 0.6 103/ul Critically low 1.2-3.8 [facility] Comment on above: Performed By: #### C BC #### [facility] [address] [place] [address] Dr. Anthony Bonilla Lymphocytes/100 WBC (Bld) 6.2 % Critically low 20.5-60.[address] [facility] Comment on above: Performed By: #### C BC #### [facility] [address] [place] [address] Dr. Anthony Bonilla MANUAL DIFF REQ NO Normal [facility] Comment on above: Performed By: #### C BC #### [facility] [address] [place] [address] Dr. Anthony Bonilla MCH (RBC) [Entitic mass] 31.6 pg Normal 26.7-34.[address] [facility] Comment on above: Performed By: #### C BC #### [facility] [address] [place] [address] Dr. Anthony Bonilla MCHC (RBC) [Mass/Vol] 33.2 g/dL Normal 29.9-35.[address] [facility] Comment on above: Performed By: #### C BC #### [facility] [address] [place] [address] Dr. Anthony Bonilla MCV (RBC) [Entitic vol] 95.2 fL Normal 81.0-99.[address] [facility] Comment on above: Performed By: #### C BC #### [facility] [address] [place] [address] Dr. Anthony Bonilla MONO # 0.6 103/ul Normal 0.3-0.[address] [facility] Comment on above: Performed By: #### C BC #### [facility] [address] [place] [address] Dr. Anthony Bonilla Monocytes/100 WBC (Bld) 6.1 % Normal 1.7-12.[address] [facility] Comment on above: Performed By: #### C BC #### [facility] [address] [place] [address] Dr. Anthony Bonilla NEUT # 8.8 103/ul Critically high 1.4-6.5 [facility] Comment on above: Performed By: #### C BC #### [facility] [address] [place] [address] Dr. Anthony Bonilla Neutrophils/100 WBC (Bld) 86.2 % Critically high 43.0-75.[address] [facility] Comment on above: Performed By: #### C BC #### [facility] [address] [place] [address] Dr. Anthony Bonilla Platelet mean volume (Bld) [Entitic vol] 9.8 fL Normal 9.5-13.[address] [facility] Comment on above: Performed By: #### C BC #### [facility] [address] [place] [address] Dr. Anthony Bonilla PLT 156 103/ul Normal 150-450 [facility] Comment on above: Performed By: #### C BC #### [facility] [address] [place] [address] Dr. Anthony Bonilla RBC 2.69 106/ul Critically low 4.20-5.40 [facility] Comment on above: Performed By: #### C BC #### [facility] [address] [place] [address] Dr. Anthony Bonilla WBC 10.3 103/ul Normal 4.0-11.[address] [facility] Comment on above: Performed By: #### C BC #### [facility] [address] [place] [address] Dr. Anthony Bonilla CULTURE URINEon 11-04-2021 CULTURE [...] F Trimethoprim/Sulfamethoxa zole <=20 S F Normal [facility] Comment on above: Performed By: #### U RCX #### [facility] [address] [place] [address] Dr. Anthony Bonilla PROF CHEM 8 (BAS METB)on Anion gap [Moles/Vol] 12.9 mmol/L Normal [facility] Comment on above: Performed By: #### U RCX #### [facility] [address] [place] [address] Dr. Anthony Bonilla Calcium [Mass/Vol] 8.6 mg/dL Normal 8.5-10.1 [facility] Comment on above: Performed By: #### U RCX #### [facility] [address] [place] [address] Dr. Anthony Bonilla Chloride [Moles/Vol] 108 mmol/L Critically high 98-[address] [facility] Comment on above: Performed By: #### U RCX #### [facility] [address] [place] [address] Dr. Anthony Bonilla CO2 [Moles/Vol] 23.1 mmol/L Normal 21.0-32.0 [facility] Comment on above: Performed By: #### U RCX #### [facility] [address] [place] [address] Dr. Anthony Bonilla Creatinine [Mass/Vol] 0.98 mg/dL Normal 0.55-1.[address] [facility] Comment on above: Performed By: #### U RCX #### [facility] [address] [address] [address] Anthony Bonilla EGFR-AF GEORGIAN >60 Normal >=60 [facility] Comment on above: Performed By: #### U RCX #### [facility] [address] [address] [address] Anthony Bonilla EGFR-NON AF GEORGIAN 54 mL/min/1.73m2 Critically low >=[address] [facility] Comment on above: Performed By: #### U RCX #### [facility] [address] [place] [address] Dr. Anthony Bonilla Glucose [Mass/Vol] 86 mg/dL Normal 74-106 [facility] Comment on above: Performed By: #### U RCX #### [facility] [address] [place] [address] Dr. Anthony Bonilla Potassium [Moles/Vol] 4.0 mmol/L Normal 3.5-5.[address] [facility] Comment on above: Performed By: #### U RCX #### [facility] [address] [place] [address] Dr. Anthony Bonilla Sodium [Moles/Vol] 140 mmol/L Normal 136-145 [facility] Comment on above: Performed By: #### U RCX #### [facility] [address] [place] [address] Dr. Anthony Bonilla Urea nitrogen [Mass/Vol] 31.0 mg/dL Critically high 7.0-18.[address] [facility] Comment on above: Performed By: #### U RCX #### [facility] [address] [place] [address] Dr. Anthony Bonilla Urea nitrogen/Creatinine [Mass ratio] 31.6 mg/mg Normal [facility] Comment on above: Performed By: #### U RCX #### [facility] [address] [place] [address] Dr. Anthony Bonilla CBC AUTO DIFFon 11-03-2021 BASO # 0.0 103/ul Normal 0.0-0.[address] [facility] Comment on above: Performed By: #### C BC #### [facility] [address] [place] [address] Dr. Anthony Bonilla Basophils/100 WBC (Bld) 0.3 % Normal 0.2-2.[address] [facility] Comment on above: Performed By: #### C BC #### [facility] [address] [place] [address] Dr. Anthony Bonilla EO # 0.1 103/ul Normal 0.0-0.[address] [facility] Comment on above: Performed By: #### C BC #### [facility] [address] [place] [address] Dr. Anthony Bonilla Eosinophils/100 WBC (Bld) 0.6 % Critically low 0.9-7.[address] [facility] Comment on above: Performed By: #### C BC #### [facility] [address] [place] [address] Dr. Anthony Bonilla Erythrocyte distribution width (RBC) [Ratio] 14.0 % Normal 11.0-15.[address] [facility] Comment on above: Performed By: #### C BC #### [facility] [address] [place] [address] Dr. Anthony Bonilla Hematocrit (Bld) [Volume fraction] 23.1 % Critically low 36.0-48.[address] [facility] Comment on above: Result Comment: Flui ds given Performed By: #### C BC #### [facility] [address] [place] [address] Dr. Anthony Bonilla Hemoglobin (Bld) [Mass/Vol] 7.6 g/dL Critically low 12.0-16.[address] [facility] Comment on above: Performed By: #### C BC #### [facility] [address] [place] [address] Dr. Anthony Bonilla IG # 0.07 10e3/ul Critically high 0.00-0.03 [facility] Comment on above: Performed By: #### C BC #### [facility] [address] [place] [address] Dr. Anthony Bonilla IG % 0.6 % Critically high 0.0-0.5 [facility] Comment on above: Performed By: #### C BC #### [facility] [address] [place] [address] Dr. Anthony Bonilla LYMPH # 0.7 103/ul Critically low 1.2-3.8 [facility] Comment on above: Performed By: #### C BC #### [facility] [address] [place] [address] Dr. Anthony Bonilla Lymphocytes/100 WBC (Bld) 5.7 % Critically low 20.5-60.[address] [facility] Comment on above: Performed By: #### C BC #### [facility] [address] [place] [address] Dr. Anthony Bonilla MANUAL DIFF REQ NO Normal [facility] Comment on above: Performed By: #### C BC #### [facility] [address] [place] [address] Dr. Anthony Bonilla MCH (RBC) [Entitic mass] 32.6 pg Normal 26.7-34.[address] [facility] Comment on above: Performed By: #### C BC #### [facility] [address] [place] [address] Dr. Anthony Bonilla MCHC (RBC) [Mass/Vol] 32.9 g/dL Normal 29.9-35.2 [facility] Comment on above: Performed By: #### C BC #### [facility] [address] [place] [address] Dr. Anthony Bonilla MCV (RBC) [Entitic vol] 99.1 fL Critically high 81.0-99.[address] [facility] Comment on above: Performed By: #### C BC #### [facility] [address] [place] [address] Dr. Anthony Bonilla MONO # 0.8 103/ul Normal 0.3-0.8 [facility] Comment on above: Performed By: #### C BC #### [facility] [address] [place] [address] Dr. Anthony Bonilla Monocytes/100 WBC (Bld) 6.8 % Normal 1.7-12.0 [facility] Comment on above: Performed By: #### C BC #### [facility] [address] [place] [address] Dr. Anthony Bonilla NEUT # 9.8 103/ul Critically high 1.4-6.5 [facility] Comment on above: Performed By: #### C BC #### [facility] [address] [place] [address] Dr. Anthony Bonilla Neutrophils/100 WBC (Bld) 86.0 % Critically high 43.0-75.0 [facility] Comment on above: Performed By: #### C BC #### [facility] [address] [place] [address] Dr. Anthony Bonilla Platelet mean volume (Bld) [Entitic vol] 9.5 fL Normal 9.5-13.5 [facility] Comment on above: Performed By: #### C BC #### [facility] [address] [place] [address] Dr. Anthony Bonilla PLT 160 103/ul Normal 150-450 [facility] Comment on above: Performed By: #### C BC #### [facility] [address] [place] [address] Dr. Anthony Bonilla RBC 2.33 106/ul Critically low 4.20-5.40 [facility] Comment on above: Performed By: #### C BC #### [facility] [address] [place] [address] Dr. Anthony Bonilla WBC 11.4 103/ul Critically high 4.0-11.0 [facility] Comment on above: Performed By: #### C BC #### [facility] [address] [place] [address] Dr. Anthony Bonilla HEMOGLOBIN AND HEMATOCRITon 11-03-2021 Hematocrit (Bld) [Volume fraction] 27.0 % Critically low 36.0-48.[address] [facility] Comment on above: Performed By: #### U RCX #### [facility] [address] [place] [address] Dr. Anthony Bonilla Hemoglobin (Bld) [Mass/Vol] 9.1 g/dL Critically low 12.0-16.[address] [facility] Comment on above: Performed By: #### U RCX #### [facility] [address] [place] [address] Dr. Anthony Bonilla OCC BLD IMMUNO SCREENon 10-10 OCCULT BLOOD Positive Abnormal NEGATIVE [facility] Comment on above: Performed By: #### C BC #### [facility] [address] [place] [address] Dr. Anthony Bonilla PROF CHEM 8 (BAS METB)on Anion gap [Moles/Vol] 10.7 mmol/L Normal [facility] Comment on above: Performed By: #### C BC #### [facility] [address] [place] [address] Dr. Anthony Bonilla Calcium [Mass/Vol] 8.6 mg/dL Normal 8.5-10.1 [facility] Comment on above: Performed By: #### C BC #### [facility] [address] [place] [address] Dr. Anthony Bonilla Chloride [Moles/Vol] 107 mmol/L Normal 98-[address] [facility] Comment on above: Performed By: #### C BC #### [facility] [address] [place] [address] Dr. Anthony Bonilla CO2 [Moles/Vol] 24.4 mmol/L Normal 21.0-32.0 [facility] Comment on above: Performed By: #### C BC #### [facility] [address] [place] [address] Dr. Anthony Bonilla Creatinine [Mass/Vol] 0.98 mg/dL Normal 0.55-1.[address] [facility] Comment on above: Performed By: #### C BC #### [facility] [address] [place] [address] Dr. Anthony Bonilla EGFR-AF GEORGIAN >60 Normal >=60 [facility] Comment on above: Performed By: #### C BC #### [facility] [address] [address] [address] Anthony Bonilla EGFR-NON AF GEORGIAN 54 mL/min/1.73m2 Critically low >=60 [facility] Comment on above: Performed By: #### C BC #### [facility] [address] [address] [address] Anthony Bonilla Glucose [Mass/Vol] 98 mg/dL Normal 74-106 [facility] Comment on above: Performed By: #### C BC #### [facility] [address] [address] [address] Anthony Bonilla Potassium [Moles/Vol] 4.1 mmol/L Normal 3.5-5.[address] [facility] Comment on above: Performed By: #### C BC #### [facility] [address] [place] [address] Dr. Anthony Bonilla Sodium [Moles/Vol] 138 mmol/L Normal 136-145 [facility] Comment on above: Performed By: #### C BC #### [facility] [address] [place] [address] Dr. Anthony Bonilla Urea nitrogen [Mass/Vol] 43.0 mg/dL Critically high 7.0-18.[address] [facility] Comment on above: Performed By: #### C BC #### [facility] [address] [place] [address] Dr. Anthony Bonilla Urea nitrogen/Creatinine [Mass ratio] 43.9 mg/mg Normal [facility] Comment on above: Performed By: #### C BC #### [facility] [address] [address] [address] Anthony Bonilla TYPE AND SCREENon 11-03-2021 TYPE AND SCREEN Negative Normal [facility] Comment on above: Performed By: #### C BC #### [facility] [address] [place] [address] Dr. Anthony Bonilla CBC AUTO DIFFon 11-02-2021 BASO # 0.0 103/ul Normal 0.0-0.[address] [facility] Comment on above: Performed By: #### U RCX #### [facility] [address] [place] [address] Dr. Anthony Bonilla Basophils/100 WBC (Bld) 0.3 % Normal 0.2-2.[address] [facility] Comment on above: Performed By: #### U RCX #### [facility] [address] [place] [address] Dr. Anthony Bonilla EO # 0.0 103/ul Normal 0.0-0.7 [facility] Comment on above: Performed By: #### U RCX #### [facility] [address] [place] [address] Dr. Anthony Bonilla Eosinophils/100 WBC (Bld) 0.1 % Critically low 0.9-7.[address] [facility] Comment on above: Performed By: #### U RCX #### [facility] [address] [place] [address] Dr. Anthony Bonilla Erythrocyte distribution width (RBC) [Ratio] 13.9 % Normal 11.0-15.[address] [facility] Comment on above: Performed By: #### U RCX #### [facility] [address] [place] [address] Dr. Anthony Bonilla Hematocrit (Bld) [Volume fraction] 31.8 % Critically low 36.0-48.[address] [facility] Comment on above: Performed By: #### U RCX #### [facility] [address] [place] [address] Dr. Anthony Bonilla Hemoglobin (Bld) [Mass/Vol] 10.5 g/dL Critically low 12.0-16.[address] [facility] Comment on above: Performed By: #### U RCX #### [facility] [address] [place] [address] Dr. Anthony Bonilla IG # 0.07 10e3/ul Critically high 0.00-0.03 [facility] Comment on above: Performed By: #### U RCX #### [facility] [address] [place] [address] Dr. Anthony Bonilla IG % 0.5 % Normal 0.0-0.[address] [facility] Comment on above: Performed By: #### U RCX #### [facility] [address] [address] [address] Anthony Bonilla LYMPH # 0.9 103/ul Critically low 1.2-3.8 [facility] Comment on above: Performed By: #### U RCX #### [facility] [address] [address] [address] Anthony Bonilla Lymphocytes/100 WBC (Bld) 6.1 % Critically low 20.5-60.0 [facility] Comment on above: Performed By: #### U RCX #### [facility] [address] [address] [address] Anthony Bonilla MANUAL DIFF REQ NO Normal [facility] Comment on above: Performed By: #### U RCX #### [facility] [address] [address] [address] Anthony Bonilla MCH (RBC) [Entitic mass] 32.7 pg Normal 26.7-34.0 [facility] Comment on above: Performed By: #### U RCX #### [facility] [address] [address] [address] Anthony Bonilla MCHC (RBC) [Mass/Vol] 33.0 g/dL Normal 29.9-35.2 [facility] Comment on above: Performed By: #### U RCX #### [facility] [address] [address] [address] Anthony Bonilla MCV (RBC) [Entitic vol] 99.1 fL Critically high 81.0-99.0 [facility] Comment on above: Performed By: #### U RCX #### [facility] [address] [address] [address] Anthony Bonilla MONO # 1.0 103/ul Critically high 0.3-0.8 [facility] Comment on above: Performed By: #### U RCX #### [facility] [address] [address] [address] Anthony Bonilla Monocytes/100 WBC (Bld) 6.8 % Normal 1.7-12.0 [facility] Comment on above: Performed By: #### U RCX #### [facility] [address] [address] [address] Anthony Bonilla NEUT # 12.1 103/ul Critically high 1.4-6.5 [facility] Comment on above: Performed By: #### U RCX #### [facility] [address] [address] [address] Anthony Bonilla Neutrophils/100 WBC (Bld) 86.2 % Critically high 43.0-75.0 [facility] Comment on above: Performed By: #### U RCX #### [facility] [address] [address] [address] Anthony Bonilla Platelet mean volume (Bld) [Entitic vol] 9.8 fL Normal 9.5-13.5 [facility] Comment on above: Performed By: #### U RCX #### [facility] [address] [place] [address] Dr. Anthony Bonilla PLT 175 103/ul Normal 150-450 [facility] Comment on above: Performed By: #### U RCX #### [facility] [address] [place] [address] Dr. Anthony Bonilla RBC 3.21 106/ul Critically low 4.20-5.40 [facility] Comment on above: Performed By: #### U RCX #### [facility] [address] [place], [place] [id number] Dr. Anthony Bonilla WBC 14.0 103/ul Critically high 4.0-11.0 [facility] Comment on above: Performed By: #### U RCX #### [facility] [address] [place] [address] HEAD WO CONon [...] HERNANDO HAMLIN Date: 2021-11-01 22:36 Normal [facility] PROF CHEM 8 (BAS METB)on Anion gap [Moles/Vol] 12.2 mmol/L Normal [facility] Comment on above: Performed By: #### C BC #### [facility] [address] [place] [address] Dr. Anthony Bonilla Calcium [Mass/Vol] 8.7 mg/dL Normal 8.5-10.1 [facility] Comment on above: Performed By: #### C BC #### [facility] [address] [place] [address] Dr. Anthony Bonilla Chloride [Moles/Vol] 103 mmol/L Normal 98-[address] [facility] Comment on above: Performed By: #### C BC #### [facility] [address] [place] [address] Dr. Anthony Bonilla CO2 [Moles/Vol] 25.7 mmol/L Normal 21.0-32.0 [facility] Comment on above: Performed By: #### C BC #### [facility] [address] [address] [address] Anthony Bonilla Creatinine [Mass/Vol] 1.08 mg/dL Critically high 0.55-1.[address] [facility] Comment on above: Performed By: #### C BC #### [facility] [address] [place] [address] Dr. Anthony Bonilla EGFR-AF GEORGIAN 58 mL/min/1.73m2 Critically low >=[address] [facility] Comment on above: Performed By: #### C BC #### [facility] [address] [place] [address] Dr. Anthony Bonilla EGFR-NON AF GEORGIAN 48 mL/min/1.73m2 Critically low >=[address] [facility] Comment on above: Performed By: #### C BC #### [facility] [address] [address] [address] Anthony Bonilla Glucose [Mass/Vol] 84 mg/dL Normal 74-106 [facility] Comment on above: Performed By: #### C BC #### [facility] [address] [address] [address] Anthony Bonilla Potassium [Moles/Vol] 4.9 mmol/L Normal 3.5-5.[address] [facility] Comment on above: Performed By: #### C BC #### [facility] [address] [address] [address] Anthony Bonilla Sodium [Moles/Vol] 136 mmol/L Normal 136-145 [facility] Comment on above: Performed By: #### C BC #### [facility] [address] [address] [address] Anthony Bonilla Urea nitrogen [Mass/Vol] 33.0 mg/dL Critically high 7.0-18.[address] [facility] Comment on above: Performed By: #### C BC #### [facility] [address] [address] [address] Anthony Bonilla Urea nitrogen/Creatinine [Mass ratio] 30.6 mg/mg Normal [facility] Comment on above: Performed By: #### C BC #### [facility] [address] [address] [address] Anthony Bonilla XR CHEST 1 Von [...] GIANA HOLLY Date: 2021-11-01 22:05 Normal [facility] CARDIAC DARWIN ADMITon 022 CK [Catalytic activity/Vol] 92 U/L Normal 26-[address] [facility] Comment on above: Performed By: #### C BC #### [facility] [address] [place] [address] Dr. Anthony Bonilla CK.MB [Mass/Vol] 1.73 ng/mL Normal <=3.60 [facility] Comment on above: Performed By: #### C BC #### [facility] [address] [place] [address] Dr. Anthony Bonilla HSTROP 20.0 pg/mL Normal 4.0-51.3 [facility] Comment on above: Result Comment: CUT- OFF POINTS HAVE BEEN ESTABLISHED BASED ON THE FOURTH UNIVERSAL DEFINITIONS OF MYOCARDIAL INFARCTION. THE UPPER REFERENCE LIMIT (URL) OF TROPONIN, DEFINED THE 99TH PERCENTILE OF cTnI DISTRIBUTION IN A REFERENCE POPULATION, HAS BEEN CONFIRMED THE DECISION THRESHOLD FOR [place] DIAGNOSIS. Performed By: #### C BC #### [facility] [address] [place] [address] Dr. Anthony Bonilla CANDIDA 58 ng/mL Normal 9-[address] [facility] Comment on above: Performed By: #### C BC #### [facility] [address] [place] [address] Dr. Anthony Bonilla CBC AUTO DIFFon 11-01-2021 BASO # 0.0 103/ul Normal 0.0-0.[address] [facility] Comment on above: Performed By: #### U RCX #### [facility] [address] [place] [address] Dr. Anthony Bonilla Basophils/100 WBC (Bld) 0.2 % Normal 0.2-2.0 [facility] Comment on above: Performed By: #### U RCX #### [facility] [address] [place] [address] Dr. Anthony Bonilla EO # 0.0 103/ul Normal 0.0-0.7 [facility] Comment on above: Performed By: #### U RCX #### [facility] [address] [place] [address] Dr. Anthony Bonilla Eosinophils/100 WBC (Bld) 0.0 % Critically low 0.9-7.0 [facility] Comment on above: Performed By: #### U RCX #### [facility] [address] [address] [address] Anthony Bonilla Erythrocyte distribution width (RBC) [Ratio] 14.1 % Normal 11.0-15.[address] [facility] Comment on above: Performed By: #### U RCX #### [facility] [address] [place] [address] Dr. Anthony Bonilla Hematocrit (Bld) [Volume fraction] 36.0 % Normal 36.0-48.[address] [facility] Comment on above: Performed By: #### U RCX #### [facility] [address] [place] [address] Dr. Anthony Bonilla Hemoglobin (Bld) [Mass/Vol] 12.1 g/dL Normal 12.0-16.[address] [facility] Comment on above: Performed By: #### U RCX #### [facility] [address] [place] [address] Dr. Anthony Bonilla IG # 0.11 10e3/ul Critically high 0.00-0.03 [facility] Comment on above: Performed By: #### U RCX #### [facility] [address] [place] [address] Dr. Anthony Bonilla IG % 0.5 % Normal 0.0-0.[address] [facility] Comment on above: Performed By: #### U RCX #### [facility] [address] [place] [address] Dr. Anthony Bonilla LYMPH # 0.7 103/ul Critically low 1.2-3.8 [facility] Comment on above: Performed By: #### U RCX #### [facility] [address] [address] [address] Anthony Bonilla Lymphocytes/100 WBC (Bld) 3.2 % Critically low 20.5-60.[address] [facility] Comment on above: Performed By: #### U RCX #### [facility] [address] [place] [address] Dr. Anthony Bonilla MANUAL DIFF REQ NO Normal [facility] Comment on above: Performed By: #### U RCX #### [facility] [address] [address] [address] Anthony Bonilla MCH (RBC) [Entitic mass] 33.0 pg Normal 26.7-34.0 [facility] Comment on above: Performed By: #### U RCX #### [facility] [address] [address] [address] Anthony Bonilla MCHC (RBC) [Mass/Vol] 33.6 g/dL Normal 29.9-35.2 [facility] Comment on above: Performed By: #### U RCX #### [facility] [address] [address] [address] Anthony Bonilla MCV (RBC) [Entitic vol] 98.1 fL Normal 81.0-99.0 [facility] Comment on above: Performed By: #### U RCX #### [facility] [address] [place] [address] Dr. Anthony Bonilla MONO # 1.1 103/ul Critically high 0.3-0.8 [facility] Comment on above: Performed By: #### U RCX #### [facility] [address] [address] [address] Anthony Bonilla Monocytes/100 WBC (Bld) 4.8 % Normal 1.7-12.0 [facility] Comment on above: Performed By: #### U RCX #### [facility] [address] [place] [address] Dr. Anthony Bonilla NEUT # 20.3 103/ul Critically high 1.4-6.5 [facility] Comment on above: Performed By: #### U RCX #### [facility] [address] [address] [address] Anthony Bonilla Neutrophils/100 WBC (Bld) 91.3 % Critically high 43.0-75.0 [facility] Comment on above: Performed By: #### U RCX #### [facility] [address] [place] [address] Dr. Anthony Bonilla Platelet mean volume (Bld) [Entitic vol] 10.8 fL Normal 9.5-13.5 [facility] Comment on above: Performed By: #### U RCX #### [facility] [address] [address] [address] Anthony Bonilla PLT 179 103/ul Normal 150-450 [facility] Comment on above: Performed By: #### U RCX #### [facility] [address] [place] [address] Dr. Anthony Bonilla RBC 3.67 106/ul Critically low 4.20-5.40 [facility] Comment on above: Performed By: #### U RCX #### [facility] [address] [address] [address] Anthony Bonilla WBC 22.2 103/ul Critically high 4.0-11.0 [facility] Comment on above: Performed By: #### U RCX #### [facility] [address] [place] [address] Dr. Anthony Bonilla CULTURE BLOODon 11-01-2021 Microscopic examination of blood, culture Culture Observations: NO GROWTH AT 5 DAYS. Normal [facility] Comment on above: Performed By: #### B LDCX2 #### [facility] [address] [place] [address] Dr. Anthony Bonilla Performed By: #### C BC #### [facility] [address] [place] [address] Dr. Anthony Bonilla [facility]10 SARS-CoV-2 (COVID-19) RNA OH+probe Ql (Unsp spec) Detected Critically abnormal NOT DETECTED [facility] Comment on above: Result Comment: This test is not yet approved or cleared by the [place] FDA. When there are no FDA-approved or cleared tests available, and other criteria are met, FDA can make tests available under an emergency access mechanism called an Emergency Use Authorization (EUA). The EUA for this test is supported by the Direct Entry Midwife of Health and Human Service's declaration that [...] used). Performed By: #### C BC #### [facility] [address] [place] [address] Dr. Anthony LEYVA URINE PROFILEon 2 Bilirubin Ql (U) Negative Normal NEGATIVE [facility] Comment on above: Performed By: #### U RCX #### [facility] [address] [place] [address] Dr. Anthony Bonilla Clarity (U) CLEAR Normal CLEAR [facility] Comment on above: Performed By: #### U RCX #### [facility] [address] [place] [address] Dr. Anthony Bonilla Color (U) LT. YELLOW Normal YELLOW [facility] Comment on above: Performed By: #### U RCX #### [facility] [address] [place] [address] Dr. Anthony Bonilla ERUAHD A micrscopic examina tion will be performed if indicated. Normal [facility] Comment on above: Performed By: #### U RCX #### [facility] [address] [place] [address] Dr. Anthony Bonilla Glucose Ql (U) Negative Normal NEGATIVE [facility] Comment on above: Performed By: #### U RCX #### [facility] [address] [place] [address] Dr. Anthony Bonilla Hemoglobin Ql (U) TRACE-INTACT Abnormal NEGATIVE [facility] Comment on above: Performed By: #### U RCX #### [facility] [address] [place] [address] Dr. Anthony Bonilla Ketones Ql (U) Negative Normal NEGATIVE [facility] Comment on above: Performed By: #### U RCX #### [facility] [address] [place] [address] Dr. Anthony Bonilla LEUKOCYTES Negative Normal NEGATIVE [facility] Comment on above: Performed By: #### U RCX #### [facility] [address] [place] [address] Dr. Anthony Bonilla Nitrite Ql (U) Negative Normal NEGATIVE [facility] Comment on above: Performed By: #### U RCX #### [facility] [address] [place] [address] Dr. Anthony Bonilla pH (U) 6.0 [pH] Normal 5-[address] [facility] Comment on above: Performed By: #### U RCX #### [facility] [address] [place] [address] Dr. Anthony Bonilla SPEC GRAVITY 1.020 Normal 1.005-<=1. [address] [facility] Comment on above: Performed By: #### U RCX #### [facility] [address] [place] [address] Dr. Anthony Bonilla UA PROTEIN Negative Normal NEGATIVE/ TRACE [facility] Comment on above: Performed By: #### U RCX #### [facility] [address] [place] [address] Dr. Anthony Bonilla UR MICRO IND INDICATED Normal [facility] Comment on above: Performed By: #### U RCX #### [facility] [address] [place] [address] Dr. Anthony Bonilla Urobilinogen Qn (U) 1.0 {Gen'U}/dL Normal 0.2 - 1. [address] [facility] Comment on above: Performed By: #### U RCX #### [facility] [address] [place] [address] Dr. Anthony Bonilla LACTATE/LACTIC ACIDon 2021 Lactate [Moles/Vol] 1.6 mmol/L Normal 0.4-1.9 [facility] Comment on above: Performed By: #### C BC #### [facility] [address] [place] [address] Dr. Anthony Bonilla PROF 14(COMP METB)on 022 Albumin [Mass/Vol] 3.2 g/dL Critically low 3.4-5.0 [facility] Comment on above: Performed By: #### C BC #### [facility] [address] [place] [address] Dr. Anthony Bonilla Albumin/Globulin [Mass ratio] 0.9 {ratio} Normal [facility] Comment on above: Performed By: #### C BC #### [facility] [address] [address] [address] Anthony Bonilla ALP [Catalytic activity/Vol] 26 U/L Critically low 46-[address] [facility] Comment on above: Performed By: #### C BC #### [facility] [address] [address] [address] Anthony Bonilla ALT [Catalytic activity/Vol] 32 U/L Normal 14-[address] [facility] Comment on above: Performed By: #### C BC #### [facility] [address] [address] [address] Anthony Bonilla Anion gap [Moles/Vol] 11.5 mmol/L Normal Th [facility] Comment on above: Performed By: #### C BC #### [facility] [address] [address] [address] Anthony Bonilla AST [Catalytic activity/Vol] 16 U/L Normal 15-[address] [facility] Comment on above: Performed By: #### C BC #### [facility] [address] [address] [address] Anthony Bonilla Bilirubin [Mass/Vol] 1.2 mg/dL Critically high 0.2-1.[address] [facility] Comment on above: Performed By: #### C BC #### [facility] [address] [address] [address] Anthony Bonilla Calcium [Mass/Vol] 9.0 mg/dL Normal 8.5-10.1 [facility] Comment on above: Performed By: #### C BC #### [facility] [address] [address] [address] Anthoyn Bonilla Chloride [Moles/Vol] 102 mmol/L Normal 98-[address] [facility] Comment on above: Performed By: #### C BC #### [facility] [address] [address] [address] Anthony Bonilla CO2 [Moles/Vol] 25.2 mmol/L Normal 21.0-32.0 [facility] Comment on above: Performed By: #### C BC #### [facility] [address] [address] [address] Anthony Bonilla Creatinine [Mass/Vol] 1.25 mg/dL Critically high 0.55-1.[address] [facility] Comment on above: Performed By: #### C BC #### [facility] [address] [address] [address] Anthony Bonilla EGFR-AF GEORGIAN 49 mL/min/1.73m2 Critically low >=[address] [facility] Comment on above: Performed By: #### C BC #### [facility] [address] [address] [address] Anthony Bonilla EGFR-NON AF GEORGIAN 41 mL/min/1.73m2 Critically low >=[address] [facility] Comment on above: Performed By: #### C BC #### [facility] [address] [address] [address] Anthony Bonilla Globulin (S) [Mass/Vol] 3.4 g/dL Normal [facility] Comment on above: Performed By: #### C BC #### [facility] [address] [address] [address] Anthony Bonilla Glucose [Mass/Vol] 102 mg/dL Normal 74-106 [facility] Comment on above: Performed By: #### C BC #### [facility] [address] [address] [address] Anthony Bonilla Potassium [Moles/Vol] 4.7 mmol/L Normal 3.5-5.[address] [facility] Comment on above: Performed By: #### C BC #### [facility] [address] [address] [address] Anthony Bonilla Protein [Mass/Vol] 6.6 g/dL Normal 6.4-8.2 [facility] Comment on above: Performed By: #### C BC #### [facility] [address] [address] [address] Anthony Bonilla Sodium [Moles/Vol] 134 mmol/L Critically low 136-145 [facility] Comment on above: Performed By: #### C BC #### [facility] [address] [place] [address] Dr. Anthony Bonilla Urea nitrogen [Mass/Vol] 33.0 mg/dL Critically high 7.0-18.[address] [facility] Comment on above: Performed By: #### C BC #### [facility] [address] [place] [address] Dr. Anthony Bonilla Urea nitrogen/Creatinine [Mass ratio] 26.4 mg/mg Normal [facility] Comment on above: Performed By: #### C BC #### [facility] [address] [place] [address] Dr. Anthony Bonilla PROTIMEon 11-01-2021 INR Coag (PPP) [Relative time] 0.97 {INR} Normal [facility] Comment on above: Performed By: #### U RCX #### [facility] [address] [place] [address] Dr. Anthony Bonilla INR GUIDELINES SEE BELOW Normal [facility] Comment on above: Result Comment: MEGAN RED INR: 2.0 - 3.0 CONDITIONS NOT LISTED BELOW 2.5 - 3.5 FOR PROSTHETIC HEART VALVE REPLACEMENT 2.5 - 3.5 RECURRENT THROMBOSIS Performed By: #### U RCX #### [facility] [address] [place] [address] Dr. Anthony Bonilla PT Coag (PPP) [Time] 10.5 s Normal 9.0-11.[address] [facility] Comment on above: Performed By: #### U RCX #### [facility] [address] [place] [address] Dr. Anthony Bonilla PTTon 11-01-2021 aPTT Coag (Bld) [Time] 27.8 s Normal 22.3-36.2 Th [facility] Comment on above: Performed By: #### U RCX #### [facility] [address] [place] [address] Dr. Anthony Bonilla TSHon 11-01-2021 TSH 1.011 uIU/mL Normal 0.358-3.[address] [facility] Comment on above: Performed By: #### C BC #### [facility] [address] [place] [address] Dr. Anthony Bonilla URINE MICROSCOPIC ONLYon BACTERIA LARGE Abnormal NONE SEEN [facility] Comment on above: Performed By: #### U RCX #### [facility] [address] [place] [address] Dr. Anthony Bonilla Bacteria identified Cx Nom (U) INDICATED Normal [facility] Comment on above: Performed By: #### U RCX #### [facility] [address] [place] [address] Dr. Anthony Bonilla CAST NONE SEEN Normal NONE SEEN [facility] Comment on above: Performed By: #### U RCX #### [facility] [address] [place] [address] Dr. Anthony Bonilla Crystals LM Nom (Urine sed) NONE SEEN Normal NONE SEEN [facility] Comment on above: Performed By: #### U RCX #### [facility] [address] [place] [address] Dr. Anthony Bonilla Epithelial cells LM Ql (Urine sed) FEW Abnormal NONE SEEN /RARE [facility] Comment on above: Performed By: #### U RCX #### [facility] [address] [place] [address] Dr. Anthony Bonilla MUCOUS NONE SEEN Normal NONE SEEN [facility] Comment on above: Performed By: #### U RCX #### [facility] [address] [place] [address] Dr. Anthony Bonilla RBC 2-5 Abnormal 0-2 [facility] Comment on above: Performed By: #### U RCX #### [facility] [address] [place] [address] Dr. Anthony Bonilla WBC 0-2 Abnormal NONE SEEN [facility] Comment on above: Performed By: #### U RCX #### [facility] [address] [place] [address] Dr. Anthony Bonilla Covid-19 PCR (CVDTBH)on SARS-CoV-2 (COVID-19) RNA [place]+probe Ql (Unsp spec) Detected Critically abnormal NOT DETECTED [facility] Comment on above: Result Comment: This test is not yet approved or cleared by the [place] FDA. When there are no FDA-approved or cleared tests available, and other criteria are met, FDA can make tests available under an emergency access mechanism called an Emergency Use Authorization (EUA). The EUA for this test is supported by the [place] of Health and Human Service's declaration that [...] used). Performed By: #### C BC #### [facility] [address] [place] [address] Dr. Anthony Bonilla [facility]on SARS-CoV-2 (COVID-19) RNA [place]+probe Ql (Unsp spec) Not detected Normal NOT DETECTED [facility] Comment on above: Result Comment: This test is not yet approved or cleared by the [place] FDA. When there are no FDA-approved or cleared tests available, and other criteria are met, FDA can make tests available under an emergency access mechanism called an Emergency Use Authorization (EUA). The EUA for this test is supported by the [place] of Health and Human Service's (HHS's) declaration [...] SARS-CoV-2. Performed By: #### U RCX #### [facility] [address] [place], [place] [address] Dr. Anthony Bonilla Coding Summaryon 10-19-2019 Coding Summary CODING DATE: 020 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 Any time this information is not complete, it is the foil cutter?s responsibility to query the physician. Based on [...] timely attention to this matter. Ambar Manley Vibration Analyst Ext [phone] [Electronically Signed on: 10/18/2019 21:40 EDT] Mi Licea DO [Verified on: 10/18/2019 21:40 EDT] Mi Licea DO [Transcribed on: 10/02/2019 11:06 EDT] [facility] Consent Formson 09-29-2019 Consent Forms [id number][facility] Medication Management [id number][facility] 09-29-2019 Outside Records [id number][facility] [id number]#[facility] 09-29-2019 Provider Orders [id number][facility] Tele[facility] 0 Telemetry Strips [id number]#1.00[facility] .Auto Diff 1on 2019 Auto [place] % 11 % Normal 02-19 [facility] Comment on above: Performed By: #### 1 [id number], [id number], [id number] #### [facility] (DEFAULT) [address] [place] [address] 04336 Baso Abs# 0.0 x10 Normal 0.0-0.2 [facility] Comment on above: Performed By: #### 1 [id number], [id number], [id number] #### [facility] (DEFAULT) [address] [place] [address] 67474 Basophils/100 WBC (Bld) 0.1 % Low 0.2-2.0 [facility] Comment on above: Performed By: #### 1 [id number], [id number], [id number] #### [facility] (DEFAULT) [address] [place] [address] 18851 Eos Abs# 0.2 x10 Normal 0.0-0.4 [facility] Comment on above: Performed By: #### 1 [id number], [id number], [id number] #### [facility] (DEFAULT) [address] [place] [address] 77741 Eosinophils/100 WBC (Bld) 2.2 % Normal 0.9-4.0 [facility] Comment on above: Performed By: #### 1 [id number], [id number], 0323954 #### [facility] (DEFAULT) [address] [place] [address] 13414 Lymphocytes (Bld) [#/Vol] 0.6 x10 Low 1.3-2.9 [facility] Comment on above: Performed By: #### 1 [id number], [id number], 2048587 #### [facility] (DEFAULT) [address] [place] [address] 35449 Lymphocytes/100 WBC (Bld) 6 % Low 14-48 [facility] Comment on above: Performed By: #### 1 [id number], [id number], 8047614 #### [facility] (DEFAULT) [address] [place] [address] 52703 [place] Abs# 1.0 x10 High 0.0-0.8 [facility] Comment on above: Performed By: #### 1 [id number], [id number], 7982854 #### [facility] (DEFAULT) [address] [place] [address] Neut Abs# 7.2 x10 Normal 1.5-9.2 [facility] Comment on above: Performed By: #### 1 [id number], [id number], 3664894 #### [facility] (DEFAULT) [address] [place] [address] Neutrophils/100 WBC (Bld) 80 % Normal 44-88 [facility] Comment on above: Performed By: #### 1 [id number], [id number], 6417500 #### [facility] (DEFAULT) [address] [place] [address] CBC w/ Auto Diffon 0 Erythrocyte distribution width (RBC) [Ratio] 14.4 % Normal 11.5-15.0 [facility] Comment on above: Performed By: #### 1 [id number], 13760510, 7066910 #### [facility] (DEFAULT) [address] [place] [address] Hematocrit (Bld) [Volume fraction] 36.2 % Normal 33.7-40.4 [facility] Comment on above: Performed By: #### 1 [id number], [id number], 0910337 #### [facility] (DEFAULT) [address] [place] [address] Hemoglobin (Bld) [Mass/Vol] 11.9 g/dL Normal 11.3-15.9 [facility] Comment on above: Performed By: #### 1 [id number], [id number], 8403832 #### [facility] (DEFAULT) [address] [place] [address] Man Diff? Auto Normal [facility] Comment on above: Performed By: #### 1 [id number], [id number], 9650070 #### [facility] (DEFAULT) [address] [place] [address] MCH (RBC) [Entitic mass] 33 pg Normal 24-34 [facility] Comment on above: Performed By: #### 1 [id number], [id number], 3944290 #### [facility] (DEFAULT) [address] [place] [address] MCHC (RBC) [Mass/Vol] 33 g/dL Normal 26-[address] [facility] Comment on above: Performed By: #### 1 [id number], [id number], 1586001 #### [facility] (DEFAULT) [address] [place] [address] MCV (RBC) [Entitic vol] 100 fL Normal 81-100 [facility] Comment on above: Performed By: #### 1 [id number], [id number], 5404972 #### [facility] (DEFAULT) [address] [place] [address] Platelet mean volume (Bld) [Entitic vol] 9.6 fL Normal 6.3-10.2 [facility] Comment on above: Performed By: #### 1 [id number], 98700244, 0650078 #### [facility] (DEFAULT) [address] [place] [address] Platelets (Bld) [#/Vol] 286 x10 Normal 138-427 [facility] Comment on above: Performed By: #### 1 [id number], [id number], [id number] #### [facility] (DEFAULT) [address] [place] [address] 40636 RBC (Bld) [#/Vol] 3.61 x10 Low 3.70-5.30 [facility] Comment on above: Performed By: #### 1 [id number], 48875959, 8516307 #### [facility] (DEFAULT) [address] [place] [address] 93492 WBC (Bld) [#/Vol] 9.0 x10 [facility] Comment on above: Performed By: #### 1 [id number], [id number], 4495201 #### [facility] (DEFAULT) [address] [place] [address] Education Noteon 2019 Education Note Education Materials [...] be done to rule of a DVT. [facility] Greenon 2019 Tube Collected Yes [facility] Comment on above: Performed By: #### 1 [id number], [id number], [id number] #### [facility] (DEFAULT) [address] [place] [address] Inpatient Patient Summaryon 2019 Inpatient Patient Summary [facility] [address] [place] [address] Patient Discharge Instructions Name: VINCENT HSU : 1935 Patient Address: [address] [place] [address] Primary Care Provider: Name: Gypsy Mcmahon MD After you are discharged if you find you have any questions, please, call [phone] ext [phone] to speak to a nurse. Discharge Diagnosis: Primary localized osteoarthritis of left hip Prescription Information: If you have been given a prescription for narcotics, seek immediate medical attention if you have any difficulty breathing or any sudden status changes such as confusion and sleepiness. If you or anyone you know is experiencing suicidal thoughts, mental health, alcohol and/or drug addiction problems; contact the [facility] 31/08 Crisis Hotline -text 4HJIE fu [phone]. If you received any narcotics, sedation, or [...] business decisions or sign any legal documents [facility] would like to thank you for allowing us to assist you with your healthcare needs. The following includes patient education materials and information regarding your injury/illness. VINCENT HSU has been given the following list of follow-up instructions, prescriptions, and patient education materials: Follow-up Instructions With: Address: When: Mi Licea [address] [place] [address], [address] [place] [address] Business (2) 10/03/2019 8:30 AM With: Address: When: Gypsy Mcmahon [address] [place] [address], [address] [place] [id number] Business (1) Medications During the course of [...] Disease Control and Prevention October 2013 [facility] Progress Note - Nurseon 09-09 [...] 2019 11:52 EDT] Pan Regalado RN [facility] Progress Note - Nurse Pt. reports interm ittent left upper inner thigh grabbing pain. Pt. moans during these episodes. Tramadol given. Pt. repostioned for comfort. No change in the muscle spasms. Dr. Chacko informed in person. No orders received. [Electronically Signed on: 2019 09:32 EDT] Pan Regalado RN [Verified on: 2019 09:32 EDT] Pan Regalado RN [facility] Progress Note-Physicianon Progress Note-Physician DATE [...] PROGNOSIS: Good. Devorah Redd DO JOB #: [id number] [Electronically Signed on: 2019 13:04 EDT] DEVORAH REDD DO [Verified on: 2019 13:04 EDT] HERIBERTO DEVORAH [Transcribed on: 2019 11:05 EDT] GDU Normal [facility] .Auto Diff 109-27-2019 Auto [place] % 9 % Normal 1-12 [facility] Comment on above: Performed By: #### 1 [id number], [id number], 3563835 #### [facility] (DEFAULT) [address] [place] [address] 08367 Baso Abs# 0.0 x10 Normal 0.0-0.2 [facility] Comment on above: Performed By: #### 1 [id number], [id number], 9195651 #### [facility] (DEFAULT) [address] [place] [address] 56509 Basophils/100 WBC (Bld) 0.1 % Low 0.2-2.0 [facility] Comment on above: Performed By: #### 1 [id number], [id number], 2539603 #### [facility] (DEFAULT) [address] [place] [address] 20518 Eos Abs# 0.2 x10 Normal 0.0-0.4 [facility] Comment on above: Performed By: #### 1 [id number], 38627397, 0761536 #### [facility] (DEFAULT) [address] [place] [address] 47107 Eosinophils/100 WBC (Bld) 1.6 % Normal 0.9-4.0 [facility] Comment on above: Performed By: #### 1 [id number], 05922298, 9594934 #### [facility] (DEFAULT) [address] [place] [address] 73549 Lymphocytes (Bld) [#/Vol] 0.5 x10 Low 1.3-2.9 [facility] Comment on above: Performed By: #### 1 [id number], 08312913, 9947157 #### [facility] (DEFAULT) [address] [place] [address] 25893 Lymphocytes/100 WBC (Bld) 4 % Low 14-48 [facility] Comment on above: Performed By: #### 1 [id number], 34305336, 2245504 #### [facility] (DEFAULT) [address] [place] [address] [place] Abs# 1.2 x10 High 0.0-0.8 [facility] Comment on above: Performed By: #### 1 [id number], 51105458, 6763888 #### [facility] (DEFAULT) [address] [place] [address] Neut Abs# 11.5 x10 High 1.5-9.2 [facility] Comment on above: Performed By: #### 1 [id number], 57417679, 4281642 #### [facility] (DEFAULT) [address] [place] [address] Neutrophils/100 WBC (Bld) 86 % Normal 44-88 [facility] Comment on above: Performed By: #### 1 [id number], 63931190, 2888746 #### [facility] (DEFAULT) [address] [place] [address] C Urineon 09-27-2019 C Urine Urine Culture [...] <=4 Verified Tri/Sulf S <=2/38 Verified Normal [facility] Comment on above: Performed By: #### 7 [id number], [id number], [id number] #### [facility] (DEFAULT) [address] [place] [address] CBC w/ Auto Diffon 0 Erythrocyte distribution width (RBC) [Ratio] 14.5 % Normal 11.5-15.0 [facility] Comment on above: Performed By: #### 1 [id number], 64154172, 2340079 #### [facility] (DEFAULT) [address] [place] [address] Hematocrit (Bld) [Volume fraction] 39.2 % Normal 33.7-40.4 [facility] Comment on above: Performed By: #### 1 [id number], 90293465, 2364930 #### [facility] (DEFAULT) [address] [place] [address] 56920 Hemoglobin (Bld) [Mass/Vol] 12.8 g/dL Normal 11.3-15.9 [facility] Comment on above: Performed By: #### 1 [id number], 84003392, 6732313 #### [facility] (DEFAULT) [address] [place] [address] Man Diff? Auto Normal [facility] Comment on above: Performed By: #### 1 [id number], 08628595, 7726477 #### [facility] (DEFAULT) [address] [place] [address] 17361 MCH (RBC) [Entitic mass] 33 pg Normal 24-34 [facility] Comment on above: Performed By: #### 1 [id number], 11252269, 4099294 #### [facility] (DEFAULT) [address] [place] [address] 14675 MCHC (RBC) [Mass/Vol] 33 g/dL Normal 26-[address] [facility] Comment on above: Performed By: #### 1 [id number], [id number], 4883583 #### [facility] (DEFAULT) [address] [place] [address] 18216 MCV (RBC) [Entitic vol] 101 fL High 81-100 [facility] Comment on above: Performed By: #### 1 [id number], 83312347, 0669817 #### [facility] (DEFAULT) [address] [place] [address] 39660 Platelet mean volume (Bld) [Entitic vol] 9.8 fL Normal 6.3-10.2 [facility] Comment on above: Performed By: #### 1 [id number], 13108286, 8219324 #### [facility] (DEFAULT) [address] [place] [address] 96866 Platelets (Bld) [#/Vol] 266 x10 Normal 138-427 [facility] Comment on above: Performed By: #### 1 [id number], 19811904, 3655679 #### [facility] (DEFAULT) [address] [place] [address] 39654 RBC (Bld) [#/Vol] 3.89 x10 Normal 3.70-5.30 [facility] Comment on above: Performed By: #### 1 [id number], [id number], 8132013 #### [facility] (DEFAULT) [address] [place] [address] 81630 WBC (Bld) [#/Vol] 13.4 x10 [facility] Comment on above: Result Comment: Slid e Reviewed Performed By: #### 1 [id number], [id number], 4970945 #### [facility] (DEFAULT) [address] [place] [address] 02362 Coding Summaryon 09-27-2019 Coding Summary CODING DATE: 020 [facility] STATUS: Home PAYOR: Medicare ADMIT DX: REASON [...] Lawrence Date Saved: 09/27/2019 11:11 am [facility] Extra Greenon 09-27-2019 Tube Collected Yes [facility] Comment on above: Performed By: #### 1 [id number], [id number], [id number] #### [facility] (DEFAULT) [address] [place] [id number] Nutrition Noteon 09-27-2019 Nutrition Note Pt eating poorly, av g less than 30% of meals per intake records. Supplements also taken sporadically. Suspect pain and constipation may be playing a role. No new wts. Last BM 09/23. Possible discharge later today. Will continue to follow and monitor need to adjust supplements ie. offer to make into a milkshake, [facility] Pharmacy Noteon 09-27-2019 Pharmacy Note [...] on: 09/27/2019 14:01 EDT] Virgie Santos [facility] Progress Note - Nurseon 09-08 Progress Note - Nurse 1800 one dulcolax suppository administered, will continue to monitor. [Electronically Signed on: 09/27/2019 18:03 EDT] Luli Mclain RN [Verified on: 09/27/2019 18:03 EDT] Luli Mclain RN [facility] Progress Note - Nurse 1710 tramadol 50mg po administered for #10 left upper thigh pain , will continue to monitor. [Electronically Signed on: 09/27/2019 17:09 EDT] Luli Mclain RN [Verified on: 09/27/2019 17:09 EDT] Luli Mclain RN [facility] Progress Note-Physicianon Progress Note-Physician DATE [...] PROGNOSIS: Good. Devorah Redd DO JOB #: [id number] [Electronically Signed on: 2019 10:28 EDT] DEVORAH REDD DO [Verified on: 2019 10:28 EDT] DEVORAH REDD DO [Transcribed on: 09/27/2019 13:52 EDT] U Normal [facility] .Auto Diff 1on 09-26-2019 Auto [place] % 9 % Normal 1-12 [facility] Comment on above: Performed By: #### 1 [id number], [id number], 9749415 #### [facility] (DEFAULT) [address] [place] [address] Baso Abs# 0.0 x10 Normal 0.0-0.2 [facility] Comment on above: Performed By: #### 1 [id number], [id number], 8343866 #### [facility] (DEFAULT) [address] [place] [address] Basophils/100 WBC (Bld) 0.1 % Low 0.2-2.0 [facility] Comment on above: Performed By: #### 1 [id number], [id number], 9476544 #### [facility] (DEFAULT) [address] [place] [address] Eos Abs# 0.2 x10 Normal 0.0-0.4 [facility] Comment on above: Performed By: #### 1 [id number], [id number], 9601287 #### [facility] (DEFAULT) [address] [place] [address] 11140 Eosinophils/100 WBC (Bld) 2.0 % Normal 0.9-4.0 [facility] Comment on above: Performed By: #### 1 [id number], [id number], 1515424 #### [facility] (DEFAULT) [address] [place] [address] Lymphocytes (Bld) [#/Vol] 0.6 x10 Low 1.3-2.9 [facility] Comment on above: Performed By: #### 1 [id number], 91853372, 2904741 #### [facility] (DEFAULT) [address] [place] [address] Lymphocytes/100 WBC (Bld) 6 % Low 14-48 [facility] Comment on above: Performed By: #### 1 [id number], [id number], 2723869 #### [facility] (DEFAULT) [address] [place] [address] [place] Abs# 0.9 x10 High 0.0-0.8 [facility] Comment on above: Performed By: #### 1 [id number], [id number], 7066932 #### [facility] (DEFAULT) [address] [place] [address] Neut Abs# 8.3 x10 Normal 1.5-9.2 [facility] Comment on above: Performed By: #### 1 [id number], [id number], 2771362 #### [facility] (DEFAULT) [address] [place] [address] Neutrophils/100 WBC (Bld) 83 % Normal 44-88 [facility] Comment on above: Performed By: #### 1 [id number], [id number], [id number] #### [facility] (DEFAULT) [address] [place] [address] BMP Standardon 09-26-2019 eGFR Non AA 48 mL/min/1.73m2 [facility] Comment on above: Performed By: #### 1 [id number], [id number], [id number] #### [facility] (DEFAULT) [address] [place] [address] 85458 eGFR AA 58 mL/min/1.73m2 [facility] Comment on above: Result Comment: Tool And Production Planner kody Kidney disease could be indicated at eGFRs of less than 60 ml/min/1.73m2. Kidney Failure is indicated at less than 15 ml/min/1.73m2 Performed By: #### 1 [id number], [id number], [id number] #### [facility] (DEFAULT) [address] [place] [address] 66131 Anion gap [Moles/Vol] 10.0 mmol/L Normal 5.0-19.0 [facility] Comment on above: Performed By: #### 1 [id number], [id number], [id number] #### [facility] (DEFAULT) [address] [place] [address] 94188 Calcium [Mass/Vol] 8.8 mg/dL Low 8.9-10.3 [facility] Comment on above: Performed By: #### 1 [id number], [id number], [id number] #### [facility] (DEFAULT) [address] [place] [address] 57950 Chloride [Moles/Vol] 103 mmol/L Normal 101-111 [facility] Comment on above: Performed By: #### 1 [id number], 61080914, [id number] #### [facility] (DEFAULT) [address] [place] [address] 57028 CO2 [Moles/Vol] 28 mmol/L Normal 21-32 [facility] Comment on above: Performed By: #### 1 [id number], [id number], [id number] #### [facility] (DEFAULT) [address] [place] [address] 36874 Creatinine [Mass/Vol] 1.09 mg/dL Normal 0.60-1.[address] [facility] Comment on above: Performed By: #### 1 [id number], [id number], [id number] #### [facility] (DEFAULT) [address] [place] [address] 69679 Glucose [Mass/Vol] 94.0 mg/dL Normal 74.0-118.0 [facility] Comment on above: Performed By: #### 1 [id number], [id number], [id number] #### [facility] (DEFAULT) [address] [place] [address] 99480 Osmolality [Osmolality] 276 mOsm/L [facility] Comment on above: Performed By: #### 1 [id number], [id number], [id number] #### [facility] (DEFAULT) [address] [place] [address] 17165 Potassium [Moles/Vol] 4.4 mmol/L Normal 3.6-5.[address] [facility] Comment on above: Performed By: #### 1 [id number], [id number], [id number] #### [facility] (DEFAULT) [address] [place] [address] 73283 Sodium [Moles/Vol] 137.0 mmol/L Normal 136.0-144 . 0 [facility] Comment on above: Performed By: #### 1 [id number], 17663310, [id number] #### [facility] (DEFAULT) [address] [place] [address] 06518 Urea nitrogen [Mass/Vol] 19 mg/dL Normal 8-26 [facility] Comment on above: Performed By: #### 1 [id number], [id number], [id number] #### [facility] (DEFAULT) [address] [place] [address] 42248 Urea nitrogen/Creatinine [Mass ratio] 17.0 mg/mg High 4.6-16.2 [facility] Comment on above: Performed By: #### 1 [id number], 73020656, [id number] #### [facility] (DEFAULT) [address] [place] [address] 70601 CBC w/ Auto Diffon 0 Erythrocyte distribution width (RBC) [Ratio] 14.4 % Normal 11.5-15.0 [facility] Comment on above: Performed By: #### 1 [id number], 60832467, [id number] #### [facility] (DEFAULT) [address] [place] [address] Hematocrit (Bld) [Volume fraction] 35.5 % Normal 33.7-40.4 [facility] Comment on above: Performed By: #### 1 [id number], 24175826, 5062676 #### [facility] (DEFAULT) [address] [place] [address] Hemoglobin (Bld) [Mass/Vol] 11.6 g/dL Normal 11.3-15.9 [facility] Comment on above: Performed By: #### 1 [id number], 92982314, [id number] #### [facility] (DEFAULT) [address] [place] [address] Man Diff? Auto Normal [facility] Comment on above: Performed By: #### 1 [id number], 00486134, [id number] #### [facility] (DEFAULT) [address] [place] [address] 55955 MCH (RBC) [Entitic mass] 33 pg Normal 24-34 [facility] Comment on above: Performed By: #### 1 [id number], 34880794, 0824540 #### [facility] (DEFAULT) [address] [place] [address] 32733 MCHC (RBC) [Mass/Vol] 33 g/dL Normal 26-[address] [facility] Comment on above: Performed By: #### 1 [id number], 85893716, 3297824 #### [facility] (DEFAULT) [address] [place] [address] 48443 MCV (RBC) [Entitic vol] 102 fL High 81-100 [facility] Comment on above: Performed By: #### 1 [id number], [id number], 8196447 #### [facility] (DEFAULT) [address] [place] [address] 31458 Platelet mean volume (Bld) [Entitic vol] 9.8 fL Normal 6.3-10.2 [facility] Comment on above: Performed By: #### 1 [id number], 51893548, 9465016 #### [facility] (DEFAULT) [address] [place] [address] Platelets (Bld) [#/Vol] 236 x10 Normal 138-427 [facility] Comment on above: Performed By: #### 1 [id number], 75824245, 9485218 #### [facility] (DEFAULT) [address] [place] [address] 92828 RBC (Bld) [#/Vol] 3.49 x10 Low 3.70-5.30 [facility] Comment on above: Performed By: #### 1 [id number], 92647024, 0352296 #### [facility] (DEFAULT) [address] [place] [address] 38881 WBC (Bld) [#/Vol] 10.0 x10 [facility] Comment on above: Performed By: #### 1 [id number], 13060830, 2140150 #### [facility] (DEFAULT) [address] [place] [address] 16561 Consent Formson 09-26-2019 Consent Forms [id number] FF Normal [facility] Consultation/Specialist Note on 09-26-2019 Consultation/Specialis t Note [...] on: 09/26/2019 07:35 EDT] SUDHEER PIKE [facility] Progress Note - Nurseon 08- [...] met. [Electronically Signed on: 09/26/2019 07:45 EDT] Nadeen Cruz RNberly Normal [facility] .Auto Diff 1on 09-25-2019 Auto [place] % 8 % Normal 1-12 [facility] Comment on above: Performed By: #### 1 [id number], 80459509, 3678432 #### [facility] (DEFAULT) [address] [place] [address] 14316 Baso Abs# 0.0 x10 Normal 0.0-0.2 [facility] Comment on above: Performed By: #### 1 [id number], 21820306, 5738772 #### [facility] (DEFAULT) [address] [place] [address] 91309 Basophils/100 WBC (Bld) 0.2 % Normal 0.2-2.0 [facility] Comment on above: Performed By: #### 1 [id number], 46641267, 4120960 #### [facility] (DEFAULT) [address] [place] [address] 77602 Eos Abs# 0.1 x10 Normal 0.0-0.4 [facility] Comment on above: Performed By: #### 1 [id number], 46437261, 5474856 #### [facility] (DEFAULT) [address] [place] [address] 97333 Eosinophils/100 WBC (Bld) 0.5 % Low 0.9-4.0 [facility] Comment on above: Performed By: #### 1 [id number], 06849317, 1931010 #### [facility] (DEFAULT) [address] [place] [address] 95399 Lymphocytes (Bld) [#/Vol] 1.1 x10 Low 1.3-2.9 [facility] Comment on above: Performed By: #### 1 [id number], 74466287, 3447474 #### [facility] (DEFAULT) [address] [place] [address] 43932 Lymphocytes/100 WBC (Bld) 9 % Low 14-48 [facility] Comment on above: Performed By: #### 1 [id number], 32002785, 8863813 #### [facility] (DEFAULT) [address] [place] [address] [place] Abs# 1.0 x10 High 0.0-0.8 [facility] Comment on above: Performed By: #### 1 [id number], 99851964, 9242294 #### [facility] (DEFAULT) [address] [place] [address] Neut Abs# 9.6 x10 High 1.5-9.2 [facility] Comment on above: Performed By: #### 1 [id number], 70498386, 5965783 #### [facility] (DEFAULT) [address] [place] [address] Neutrophils/100 WBC (Bld) 82 % Normal 44-88 [facility] Comment on above: Performed By: #### 1 [id number], 14684315, 7039548 #### [facility] (DEFAULT) [address] [place] [address] ABORhon 09-25-2019 ABO and Rh group Nom (Bld) Hx Check: Not Found Anti-A: 4+ Anti-B: 0 Anti-D: 4+ DCon: NT A1: 0 B: 4+ ABORh Interp: A POS [facility] Comment on above: Performed By: #### 7 [id number], 68203036, [id number] #### [facility] (DEFAULT) [address] [place] [address] ABORh Retypeon 09-25-2019 ABO and Rh group Nom (Bld) Ordered by Discern. Anti-A: 4+ Anti-B: 0 Anti-D: 4+ DCon: NT A1: 0 B: 4+ ABORh Retype: A POS [facility] Comment on above: Performed By: #### 7 [id number], 73425268, [id number] #### [facility] (DEFAULT) [address] [place] [address] 82762 ABSC Gelon 09-25-2019 ABSC Gel Negative Normal [facility] Comment on above: Performed By: #### 7 [id number], 50411788, [id number] #### [facility] (DEFAULT) [address] [place] [address] Anesthesia Noteon 09-25-2019 Anesthesia Note Patient: DONTAE [...] risk of pressure sore / SNOMED CT 399934488 / Confirmed CAD (coronary artery disease) / SNOMED CT 98891879 / Confirmed Hyperlipidemia / SNOMED CT 72894654 / Confirmed Hypertension / SNOMED CT 6775770062 / Confirmed Skin cancer / SNOMED CT 6525034455 / Confirmed Osteoporosis / SNOMED CT 273677607 / Confirmed Restless leg syndrome / SNOMED CT 37211611 / Confirmed Resolved: GERD (gastroesophageal reflux disease) / SNOMED CT 628596884 Histories Family History: Cancer Sister Brother Aneurysm Mother CHF - Congestive heart failure Father [place] (myocardial infarction) Sister Procedure history: Umbilical hernia (1172128743). Arthroscopy (97993019). Comments: 08/29/2019 12:57 Dionne Mccarty RN arthroscopy of knee Cholecystectomy (60155918). Hysterectomy (067525278). Cataract (457225434). Shoulder (12580515). Comments: 08/29/2019 12:58 Dionne Mccarty RN arthroscopy CABG (Coronary artery bypass grafting) planned (617204694). Colonoscopy (308638154). EGD - Esophagogastroduodenoscop y (1857678709). Meniscectomy (366395112). Hip arthroplasty (907745209). Social History Electronic Cigarette/Vaping Assessment Electronic Cigarette [...] axis dev, LAFB, RV conduction delay. Plan Citizen Of [place] Society of Anesthesiologists#(ASA) physical status classification: Class III. Anesthetic Preoperative Plan Anesthesia: Regional Spinal. Anesthetic plan, risks, benefits, and alternatives discussed with the patient and/or family. Patient verbalized understanding. Informed consent was given. Consent was signed by the patient. [Electronically Signed on: 09/25/2019 10:10 EDT] Enrike Mora MD [Verified on: 09/25/2019 10:10 EDT] Enrike Mora MD Normal [facility] Blood Bank IDon 09-25-2019 Blood Bank ID BBID: [id number] [facility] Comment on above: Performed By: #### 7 [id number], 55124559, [id number] #### [facility] (DEFAULT) [address] [place] [address] 22901 CBC w/ Auto Diffon 0 Erythrocyte distribution width (RBC) [Ratio] 14.4 % Normal 11.5-15.0 [facility] Comment on above: Performed By: #### 1 [id number], 97941519, 8001079 #### [facility] (DEFAULT) [address] [place] [address] 51262 Hematocrit (Bld) [Volume fraction] 39.2 % Normal 33.7-40.4 [facility] Comment on above: Performed By: #### 1 425318635, 80266359, 7347357 #### [facility] (DEFAULT) [address] [place] [address] 34722 Hemoglobin (Bld) [Mass/Vol] 12.8 g/dL Normal 11.3-15.9 [facility] Comment on above: Performed By: #### 1 [id number], 48010040, 6996792 #### [facility] (DEFAULT) [address] [place] [address] 61749 Man Diff? Auto Normal [facility] Comment on above: Performed By: #### 1 [id number], 80953341, 4035762 #### [facility] (DEFAULT) [address] [place] [address] 36897 MCH (RBC) [Entitic mass] 33 pg Normal 24-34 [facility] Comment on above: Performed By: #### 1 476055097, 25749486, 3325494 #### [facility] (DEFAULT) [address] [place] [address] 52539 MCHC (RBC) [Mass/Vol] 33 g/dL Normal 26-[address] [facility] Comment on above: Performed By: #### 1 [id number], 04639075, 9859205 #### [facility] (DEFAULT) [address] [place], [place] [address] MCV (RBC) [Entitic vol] 102 fL High 81-100 [facility] Comment on above: Performed By: #### 1 [id number], 30353151, 0258305 #### [facility] (DEFAULT) [address] [place] [address] 01282 Platelet mean volume (Bld) [Entitic vol] 9.4 fL Normal 6.3-10.2 [facility] Comment on above: Performed By: #### 1 [id number], 62755504, 0786347 #### [facility] (DEFAULT) [address] [place] [address] 52902 Platelets (Bld) [#/Vol] 272 x10 Normal 138-427 [facility] Comment on above: Performed By: #### 1 [id number], 53237423, 1920510 #### [facility] (DEFAULT) [address] [place] [address] RBC (Bld) [#/Vol] 3.85 x10 Normal 3.70-5.30 [facility] Comment on above: Performed By: #### 1 505591264, 86755128, 9971050 #### [facility] (DEFAULT) [address] [place] [address] WBC (Bld) [#/Vol] 11.7 x10 High 3.5-10.5 [facility] Comment on above: Performed By: #### 1 [id number], 98634620, 5398254 #### [facility] (DEFAULT) [address] [place] [address] Extra Chauncey 09-25-2019 Tube Collected Yes [facility] Comment on above: Performed By: #### 7 040956, 27836062, [id number] #### [facility] (DEFAULT) [address] [place] [address] H&Hon 09-25-2019 Hematocrit (Bld) [Volume fraction] 39.9 % Normal 33.7-40.4 [facility] Comment on above: Performed By: #### 7 101063, 83908791, [id number] #### [facility] (DEFAULT) [address] [place] [address] Hemoglobin (Bld) [Mass/Vol] 12.7 g/dL Normal 11.3-15.9 [facility] Comment on above: Performed By: #### 7 642670, 03610403, [id number] #### [facility] (DEFAULT) [address] [place] [address] History and Physicalon 09-24 History and Physical [id number] FF Normal [facility] MAGR Intraoperative Recordon 09-25-2019 MAGR Intraoperative Record MAGR Intra-Op Record Summary Primary Physician: Mi Licea DO Finalized Date/Time: 09/25/19 15:04:11 Pt. Name: VINCENT HSU/Sex: 1935 FEMALE Med Rec #: [id number] Physician: Mi Licea DO Financial #: [id number] Pt. Type: I Room/Bed: [facility] Admit/Disch: 09/25/19 06:52:00 - Institution: Case [...] Role Performed Surgeon - Primary Anesthesiologist of Paid Search Specialist Record Time In 09/25/19 09:37:00 09/25/19 09:37:00 09/25/19 09:37:00 Time Out 09/25/19 11:50:00 09/25/19 11:50:00 09/25/19 11:50:00 Procedure Arthroplasty Total Arthroplasty Total Arthroplasty Total Hip(Left) Hip(Left) Hip(Left) Last Modified By: Marj Sullivan RN, Stephanie RN Sauer, Stephanie RN 09/25/19 12:54:58 09/25/19 12:54:58 09/25/19 12:54:58 Entry 4 Entry 5 Entry 6 Case Attendee Montrell MCKEON, Shantal Moreira Leigh-Ann CST Role Performed Scrub Personnel Historian Dramatic Arts Historian Dramatic Arts Time In 09/25/19 09:37:00 09/25/19 09:37:00 09/25/19 09:37:00 Time Out 09/25/19 11:50:00 09/25/19 11:50:00 09/25/19 11:50:00 Procedure Arthroplasty Total Arthroplasty Total Arthroplasty Total Hip(Left) Hip(Left) Hip(Left) Last Modified By: Marj Sullivan RN, Stephanie RN Sauer, Stephanie RN 09/25/19 12:54:58 09/25/19 12:54:58 09/25/19 12:54:58 General Comments: Robel Iram Rep Surgical Procedures MAGR Pre-Care Text: A.20 [...] Yes Eduardo BOYD Last Modified By: Marj Sulliavn RN 09/25/19 11:31:59 Post-Care Text: E.20 Evaluates [...] 50MM 6.5 X 30MM 6.5 X 15MM [employer] DEPUY DEPUY DEPUY Catalog # Lot Number [id number] Expiration Date 05/08/24 03/10/29 01/07/29 Serial Number [id number] REF 1217-30-500 REF 1217-15-500 Device Identifier Human Readable EDDA Machine Readable EDDA MR Class Implant Usage Data Site Hip L Hip L Hip L Quantity 1 1 1 Reason for Explant Reason Not Retained Explant Disposition 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 Sterility External Indicator Result Internal Indicator Results Outcome Met (O.30) Yes Yes Yes Last Modified By: Marj Sullivan RN, Stephanie RN Sauer, Stephanie RN 09/25/19 13:14:13 09/25/19 13:11:26 09/25/19 13:11:26 Entry 4 Entry 5 Entry 6 Procedure Arthroplasty Total Arthroplasty Total Arthroplasty Total Hip(Left) Hip(Left) Hip(Left) Implant Action Implant Implant Implant Description DEPMedCenterDisplay CANCELLOUS BONE DEPUY ACETABULAR SHELL DEPUY APEX HOLE SCREW ELIMINATOR Implant Information Implant/Explant 09/25/19 10:50:00 09/25/19 10:50:00 09/25/19 10:50:00 Date/Time Implanted/Explanted Mi Licea James Huddleston, James By: Eduardo Vallejo DO Size 6.5 X 15MM 50MM PS Gun [employer] Catalog # Lot Number [id number] Expiration Date 11/07/28 04/07/29 04/07/29 Serial Number REF 1217-15-500 REF [id number] REF 1246-03-000 Device Identifier Human Readable EDDA Machine Readable EDDA MR Class Implant Usage Data Site Hip L Hip L Hip L Quantity 1 1 1 Reason for Explant Reason Not Retained Explant Disposition 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 Sterility External Indicator Result Internal Indicator [...] Vallejo DO Size 135 SHORT NECK COLLAR 14 TAPER SIZE 11 Gun [employer] Catalog # Lot Number [id number] Expiration Date 02/08/24 02/08/24 Serial Number REF [id number] REF 1365-22-000 Device Identifier Human Readable EDDA Machine Readable EDDA MR Class Implant Usage Data Site Hip L Hip L Quantity 1 1 Reason for Explant Reason Not Retained Explant Disposition 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 Sterility External Indicator Result Internal Indicator [...] Violeta Malik RN Document Signatures Signed By: Majr Sullivan RN 09/25/19 13:14 Violeta Malik RN 09/25/19 15:04 Unfinalized History Date/Time Username Reason for Unfinalizing Freetext Reason for Unfinalizing 09/25/19 15:04 MARSHA [facility] Record Sum vincent Primary Physician: Mi Licea DO Finalized Date/Time: 09/25/19 12:53:39 Pt. Name: VINCENT HSU Jean Carlos /Sex: 1935 FEMALE Med Rec #: [id number] Physician: Mi Licea DO Financial #: [id number] Pt. Type: I Room/Bed: 221/1 Admit/Disch: 09/25/19 06:52:00 - Institution: PACU Case Times MAGR Entry 1 In PACU I 09/25/19 11:50:00 Discharge from PACU 09/25/19 12:40:00 I Last Modified By: Dionne Yun RN 09/25/19 12:53:35 Finalized By: Dionne Yun RN Document Signatures Signed By: Dionne Yun RN 09/25/19 12:53 Normal [facility] MAGR Preoperative Recordon 0 09-25-2019 MAGR Preoperative Record MAGR Pre-Op Record Summary Primary Physician: Mi Licea DO Finalized Date/Time: 09/25/19 11:58:52 Pt. Name: VINCENT HSU /Sex: 1935 FEMALE Med Rec #: [id number] Physician: Mi Licea DO Financial #: [id number] Pt. Type: I Room/Bed: 221/1 Admit/Disch: 09/25/19 [...] consent correct. General Comments: Pt arrives to w ambulatory. Pt denies any pain, Cp, sob, cough or flu like symptoms. Pt denies pacemaker/defibillator, pt has sleep apnea but does not wear cpap. Finalized By: Dionne Yun RN Document Signatures Signed By: Dionne Yun RN 09/25/19 11:58 [facility] Nutrition Noteon 09-25-2019 Nutrition Note Pt admitted for sche duled Lt total hip sx; placed on a Regular diet as tolerated w/ post op supplements BID along w/ usual vitamin/mineral supplementation. Nutritional supplements adjusted to what's available in house. Per robotic toy inventor assessment, Pt reports wt loss of 2-13lb, [...] to offer prunes/prune alfred q am. [facility] Operative Report - Surgeon/P hugn 09-25-2019 Operative Report - Surgeon/Physician Preoperative diagnosis: [...] 10/18/2019 21:39 EDT] Mi Licea DO [facility] Pharmacy Noteon 09-25-2019 Pharmacy Note [...] on: 09/25/2019 13:26 EDT] Virgie Santos [facility] Pharmacy Note I have personally [...] on: 09/25/2019 13:04 EDT] Marj Mccall [facility] Progress Note - Nurseon 09-08 TSH Qn Pt states that she i s having pain in her lt hip and neck #8 on the scale. Pt also complains of freezing . Temp 97.8. Pt given a warm blanket and medicated with Morphine 2mg IVP as ordered. [Electronically Signed on: 09/25/2019 19:48 EDT] Indy Vidal RN [Verified on: 09/25/2019 19:48 EDT] Indy Vidal RN [facility] Progress Note - Nurse Complaining of cracker off mping in left great toe, states this [...] 09/25/2019 19:51 EDT] Twila Cruz RN [facility] UA [id number] 09-25-2019 RBC (U) [#/Vol] 0-2 [facility] Comment on above: Order Comment: Urina lysis Microscopic order added on by Discern Expert Rules system. Performed By: #### 7 [id number], [id number], [id number] #### [facility] (DEFAULT) [address] [place] [address] 75648 UA Bacteria 4+ [facility] Comment on above: Order Comment: Urina lysis Microscopic order added on by [employer] Expert Rules system. Performed By: #### 7 [id number], [id number], [id number] #### [facility] (DEFAULT) [address] [place] [address] 25465 UA Squam Epi Rare [facility] Comment on above: Order Comment: Urina lysis Microscopic order added on by [employer] Expert Rules system. Performed By: #### 7 [id number], [id number], [id number] #### [facility] (DEFAULT) [address] [place] [address] 35508 UA WBC 0-2 [facility] Comment on above: Order Comment: Urina lysis Microscopic order added on by [employer] Expert Rules system. Performed By: #### 7 103462, [id number], [id number] #### [facility] (DEFAULT) [address] [place] [address] 89760 UA w Culture if Ind Standard on 09-25-2019 Breakpoint UA [facility] Comment on above: Order Comment: sim insert Performed By: #### 7 549151, [id number], [id number] #### [facility] (DEFAULT) [address] [place] [address] 43330 Color (U) Yellow [facility] Comment on above: Order Comment: sim insert Performed By: #### 7 [id number], [id number], [id number] #### [facility] (DEFAULT) [address] [place] [address] 96619 Culture? Indicated [facility] Comment on above: Order Comment: sim insert Performed By: #### 7 [id number], [id number], [id number] #### [facility] (DEFAULT) [address] [place] [address] 96771 Glucose (U) [Mass/Vol] Negative [facility] Comment on above: Order Comment: sim insert Performed By: #### 7 [id number], [id number], [id number] #### [facility] (DEFAULT) [address] [place] [address] 28355 Ketones Ql (U) Negative Normal [facility] Comment on above: Order Comment: sim insert Performed By: #### 7 [id number], [id number], [id number] #### [facility] (DEFAULT) [address] [place] [address] [address] Micro? Indicated [facility] Comment on above: Order Comment: sim insert Performed By: #### 7 [id number], [id number], [id number] #### [facility] (DEFAULT) [address] [place] [address] UA Bilirubin Negative [facility] Comment on above: Order Comment: sim insert Performed By: #### 7 [id number], [id number], [id number] #### [facility] (DEFAULT) [address] [place] [address] 26422 UA Blood Negative Normal [facility] Comment on above: Order Comment: sim insert Performed By: #### 7 [id number], [id number], [id number] #### [facility] (DEFAULT) [address] [place] [address] UA Clarity CLEAR Normal CLEAR [facility] Comment on above: Order Comment: sim insert Performed By: #### 7 [id number], [id number], [id number] #### [facility] (DEFAULT) [address] [place] [address] 47874 UA Leuk Est SMALL Abnormal NEGATIVE [facility] Comment on above: Order Comment: sim insert Performed By: #### 7 455374, [id number], [id number] #### [facility] (DEFAULT) [address] [place] [address] 70631 UA Nitrite Positive Abnormal NEGATIVE [facility] Comment on above: Order Comment: sim insert Performed By: #### 7 [id number], [id number], [id number] #### [facility] (DEFAULT) [address] [place] [address] 06804 UA pH 7.0 Normal 5-8 [facility] Comment on above: Order Comment: sim insert Performed By: #### 7 250712, [id number], [id number] #### [facility] (DEFAULT) [address] [place] [address] 39622 UA Protein Negative Normal NEGATIVE [facility] Comment on above: Order Comment: sim insert Performed By: #### 7 748108, [id number], [id number] #### [facility] (DEFAULT) [address] [place] [address] 66093 UA Spec Grav 1.020 Normal 1.001-1.[address] [place] [address] Comment on above: Order Comment: sim insert Performed By: #### 7 510045, [id number], [id number] #### [facility] (DEFAULT) [address] [place] [address] 19520 UA Urobilinogen 0.2 mg/dL Normal 0.2-1.0 [facility] Comment on above: Order Comment: sim insert Performed By: #### 7 475721, 02471436, [id number] #### [facility] (DEFAULT) [address] [place] [address] 65601 Urine Source Clean Catch Normal [facility] Comment on above: Order Comment: sim insert Performed By: #### 7 449011, [id number], [id number] #### [facility] (DEFAULT) [address] [place] [address] 07549 XR Hip Complete Lefton 09-24 XR Hip [...] Follow up as needed. Final Dictated by: Nino KRISHNAN, Bandar Dominguez Dictated DT/TM: 09/25/19 2:34 Signed (Electronic Signature): Nino KRISHNAN, Bandar S 09/25/19 3:55 pm Technologist: OCHOA NAZARIO [facility] Patient Handouton 09-24-2019 Patient Handout [facility] Progress Note - Nurseon 09-08 Progress Note - Nurse Spoke with pt zach rding arrival time of 0700 and NPO status. Verbalized understanding. [Electronically Signed on: 09/22/2019 09:47 EDT] Kimberley Holden RN [Verified on: 09/22/2019 09:47 EDT] Kimberley Holden RN [facility] SARS-CoV-2 (COVID-19) PCRon 09-22-2019 COVID-19 PCR Not Detected Normal Not Detected [facility] Comment on above: Performed By: #### 7 [id number], [id number], [id number] #### [facility] (DEFAULT) [address] [place] [address] Employed in healthcare? Unknown [facility] Comment on above: Performed By: #### 7 683737, [id number], [id number] #### [facility] (DEFAULT) [address] [place] [address] Group care resident? Unknown [facility] Comment on above: Performed By: #### 7 752471, [id number], [id number] #### [facility] (DEFAULT) [address] [place] [address] Hospitalized due to COVID-19? Unknown [facility] Comment on above: Performed By: #### 7 406812, [id number], [id number] #### [facility] (DEFAULT) [address] [place] [address] In ICU? Unknown [facility] Comment on above: Performed By: #### 7 840398, 42896599, [id number] #### [facility] (DEFAULT) [address] [place] [address] status? Unknown [facility] Comment on above: Performed By: #### 7 396246, 72069403, [id number] #### [facility] (DEFAULT) [address] [place] [address] Symptomatic as defined by CDC? Unknown [facility] Comment on above: Performed By: #### 7 944812, 05324986, [id number] #### [facility] (DEFAULT) [address] [place] [address] Coding Summaryon 09-13-2019 Coding Summary CODING DATE: 020 [facility] STATUS: Home PAYOR: Medicare APC DESCRIPTION 5733 Level 3 Minor Procedures ADMIT DX: REASON FOR VISIT DX: Z01.818 Encounter for other preprocedural examination I10 Essential (primary) hypertension I25.10 Atherosclerotic heart disease of [place] coronary artery without angina pectoris FINAL DX: PRINCIPAL: Z01.818 Encounter for other preprocedural examination SECONDARY: I10 Essential (primary) hypertension I25.10 Atherosclerotic heart disease of [place] coronary artery without angina pectoris K21.9 Gastro-esophageal [...] Lawrence Date Saved: 09/13/2019 09:18 am [facility] Coding Summaryon 09-06-2019 Coding Summary CODING DATE: [facility] STATUS: Home PAYOR: Medicare APC DESCRIPTION 5733 Level 3 Minor Procedures ADMIT DX: REASON FOR VISIT DX: Z01.818 Encounter for other preprocedural examination I10 Essential (primary) hypertension I25.10 Atherosclerotic heart disease of [place] coronary artery without angina pectoris FINAL DX: PRINCIPAL: Z01.818 Encounter for other preprocedural examination SECONDARY: I10 Essential (primary) hypertension I25.10 Atherosclerotic heart disease of [place] coronary artery without angina pectoris K21.9 Gastro-esophageal [...] Lawrence Date Saved: 09/06/2019 09:20 am [facility] Progress Note - Nurseon 08-09 Progress Note - Nurse chart reviewed per Dr Akbar anesthesiologist, and cleared for surgery on 09/25/2019 [Electronically Signed on: 09/04/2019 14:30 EDT] Nimco Albarado RN [Verified on: 09/04/2019 14:30 EDT] Nimco Albarado RN [facility] Progress Note - Nurse Xin at Dr Aydin rosario notified that pt has positive urine culture. [Electronically Signed on: 09/04/2019 13:37 EDT] Dionne Yun RN [Verified on: 09/04/2019 13:37 EDT] Dionne Yun RN [facility] Provider Orderson 09-04-2019 Provider Orders [id number] [facility] C Urineon 09-03-2019 C Urine [...] <=4 Verified Tri/Sulf S <=2/38 Verified Normal [facility] Comment on above: Performed By: #### 1 [id number], [id number], [id number] #### [facility] (DEFAULT) [address] [place] [address] C MRSA Screenon 09-02-2019 C MRSA Screen Negative Normal [facility] Comment on above: Performed By: #### 1 [id number] #### [facility] (DEFAULT) [address] [place] [address] .Auto Diff 1on 09-01-2019 Auto [place] % 10 % Normal -12 [facility] Comment on above: Performed By: #### 7 641810, 23582381, [id number] #### [facility] (DEFAULT) [address] [place] [address] 75224 Baso Abs# 0.0 x10 Normal 0.0-0.2 [facility] Comment on above: Performed By: #### 7 035974, 66650360, [id number] #### [facility] (DEFAULT) [address] [place] [address] Basophils/100 WBC (Bld) 0.3 % Normal 0.2-2.0 [facility] Comment on above: Performed By: #### 7 949924, 28099872, [id number] #### [facility] (DEFAULT) [address] [place] [address] 93439 Eos Abs# 0.1 x10 Normal 0.0-0.4 [facility] Comment on above: Performed By: #### 7 362972, 09393166, [id number] #### [facility] (DEFAULT) [address] [place] [address] 35817 Eosinophils/100 WBC (Bld) 0.9 % Normal 0.9-4.0 [facility] Comment on above: Performed By: #### 7 013163, 80282981, [id number] #### [facility] (DEFAULT) [address] [place] [address] 75827 Lymphocytes (Bld) [#/Vol] 1.0 x10 Low 1.3-2.9 [facility] Comment on above: Performed By: #### 7 595661, 01637991, [id number] #### [facility] (DEFAULT) [address] [place] [address] 35622 Lymphocytes/100 WBC (Bld) 10 % Low 14-48 [facility] Comment on above: Performed By: #### 7 203307, 33712927, [id number] #### [facility] (DEFAULT) [address] [place] [address] 07335 [place] Abs# 1.0 x10 High 0.0-0.8 [facility] Comment on above: Performed By: #### 7 750369, 80503257, [id number] #### [facility] (DEFAULT) [address] [place] [address] 58000 Neut Abs# 8.0 x10 Normal 1.5-9.2 [facility] Comment on above: Performed By: #### 7 844822, 30893412, [id number] #### [facility] (DEFAULT) [address] [place] [address] 26545 Neutrophils/100 WBC (Bld) 79 % Normal 44-88 [facility] Comment on above: Performed By: #### 7 204351, 33459432, [id number] #### [facility] (DEFAULT) [address] [place] [address] 76599 [facility] Standardon 09-01-2019 eGFR Non AA 44 mL/min/1.73m2 [facility] Comment on above: Performed By: #### 7 208663, 75947063, [id number] #### [facility] (DEFAULT) [address] [place] [address] 41054 eGFR AA 54 mL/min/1.73m2 [facility] Comment on above: Result Comment: [employer] kody Kidney disease could be indicated at eGFRs of less than 60 ml/min/1.73m2. Kidney Failure is indicated at less than 15 ml/min/1.73m2 Performed By: #### 7 359074, 66360015, [id number] #### [facility] (DEFAULT) [address] [place] [address] 28768 Anion gap [Moles/Vol] 15.0 mmol/L Normal 5.0-19.0 [facility] Comment on above: Performed By: #### 7 438546, 92324241, [id number] #### [facility] (DEFAULT) [address] [place] [address] 16115 Calcium [Mass/Vol] 9.2 mg/dL Normal 8.9-10.3 [facility] Comment on above: Performed By: #### 7 027141, 85739214, [id number] #### [facility] (DEFAULT) [address] [place] [address] 95494 Chloride [Moles/Vol] 101 mmol/L Normal 101-111 [facility] Comment on above: Performed By: #### 7 505048, 62995286, [id number] #### [facility] (DEFAULT) [address] [place] [address] 75568 CO2 [Moles/Vol] 25 mmol/L Normal 21-32 [facility] Comment on above: Performed By: #### 7 759854, 10223827, [id number] #### [facility] (DEFAULT) [address] [place] [address] 28527 Creatinine [Mass/Vol] 1.17 mg/dL Normal 0.60-1.[address] [facility] Comment on above: Performed By: #### 7 113172, 76298828, [id number] #### [facility] (DEFAULT) [address] [place] [address] 97508 Glucose [Mass/Vol] 94.0 mg/dL Normal 74.0-118.0 [facility] Comment on above: Performed By: #### 7 726238, 69998570, [id number] #### [facility] (DEFAULT) [address] [place] [address] 80967 Osmolality [Osmolality] 276 mOsm/L [facility] Comment on above: Performed By: #### 7 648881, 48084511, [id number] #### [facility] (DEFAULT) [address] [place] [address] 07649 Potassium [Moles/Vol] 4.0 mmol/L Normal 3.6-5.[address] [facility] Comment on above: Performed By: #### 7 501547, 43664533, [id number] #### [facility] (DEFAULT) [address] [place] [address] 63805 Sodium [Moles/Vol] 137.0 mmol/L Normal 136.0-144 . 0 [facility] Comment on above: Performed By: #### 7 874496, 72284219, [id number] #### [facility] (DEFAULT) [address] [place] [address] 63957 Urea nitrogen [Mass/Vol] 20 mg/dL Normal 8-26 [facility] Comment on above: Performed By: #### 7 421853, 83842292, [id number] #### [facility] (DEFAULT) [address] [place] [address] 68353 Urea nitrogen/Creatinine [Mass ratio] 17.0 mg/mg High 4.6-16.2 [facility] Comment on above: Performed By: #### 7 107711, 77443529, [id number] #### [facility] (DEFAULT) [address] [place] [address] 30663 CBC w/ Auto Diffon 0 Erythrocyte distribution width (RBC) [Ratio] 13.9 % Normal 11.5-15.0 [facility] Comment on above: Performed By: #### 7 922331, 61096775, [id number] #### [facility] (DEFAULT) [address] [place] [address] Hematocrit (Bld) [Volume fraction] 38.5 % Normal 33.7-40.4 [facility] Comment on above: Performed By: #### 7 816032, 16578631, [id number] #### [facility] (DEFAULT) [address] [place] [address] 17959 Hemoglobin (Bld) [Mass/Vol] 12.6 g/dL Normal 11.3-15.9 [facility] Comment on above: Performed By: #### 7 772855, 92376861, [id number] #### [facility] (DEFAULT) [address] [place] [address] 30429 Man Diff? Auto Normal [facility] Comment on above: Performed By: #### 7 961040, 81272073, [id number] #### [facility] (DEFAULT) [address] [place] [address] 62983 MCH (RBC) [Entitic mass] 33 pg Normal 24-34 [facility] Comment on above: Performed By: #### 7 312694, 39214958, [id number] #### [facility] (DEFAULT) [address] [place] [address] 74997 MCHC (RBC) [Mass/Vol] 33 g/dL Normal 26-[address] [facility] Comment on above: Performed By: #### 7 242020, 41043472, [id number] #### [facility] (DEFAULT) [address] [place] [address] 35574 MCV (RBC) [Entitic vol] 101 fL High 81-100 [facility] Comment on above: Performed By: #### 7 020917, 20997439, [id number] #### [facility] (DEFAULT) [address] [place] [address] 75892 Platelet mean volume (Bld) [Entitic vol] 9.5 fL Normal 6.3-10.2 [facility] Comment on above: Performed By: #### 7 079558, 43100297, [id number] #### [facility] (DEFAULT) [address] [place] [address] 55506 Platelets (Bld) [#/Vol] 292 x10 Normal 138-427 [facility] Comment on above: Performed By: #### 7 476498, 77325616, [id number] #### [facility] (DEFAULT) [address] [place] [address] RBC (Bld) [#/Vol] 3.82 x10 Normal 3.70-5.30 [facility] Comment on above: Performed By: #### 7 422892, 96299048, [id number] #### [facility] (DEFAULT) [address] [place] [address] WBC (Bld) [#/Vol] 10.1 x10 Normal 3.5-10.5 [facility] Comment on above: Performed By: #### 7 781465, 80609947, [id number] #### [facility] (DEFAULT) [address] [place] [address] UA [id number] 09-01-2019 RBC (U) [#/Vol] None Seen Normal [facility] Comment on above: Order Comment: Urina lysis Microscopic order added on by [employer] system. Performed By: #### 1 [id number], 65938574, 6481887 #### [facility] (DEFAULT) [address] [place] [address] UA Amorph. 1+ Normal [facility] Comment on above: Order Comment: Urina lysis Microscopic order added on by [employer] Rules system. Performed By: #### 1 [id number], 42198190, 5469446 #### [facility] (DEFAULT) [address] [place] [address] UA Bacteria 4+ Normal [facility] Comment on above: Order Comment: Urina lysis Microscopic order added on by [employer] system. Performed By: #### 1 [id number], 43970010, [id number] #### [facility] (DEFAULT) [address] [place] [address] UA Squam Epi Moderate Normal [facility] Comment on above: Order Comment: Urina lysis Microscopic order added on by [employer] system. Performed By: #### 1 [id number], 91094499, [id number] #### [facility] (DEFAULT) [address] [place] [address] 26219 UA WBC 15-20 [facility] Comment on above: Order Comment: Urina lysis Microscopic order added on by [employer] system. Performed By: #### 1 [id number], 81336119, 3793670 #### [facility] (DEFAULT) [address] [place] [address] 88213 UA w Culture if Ind Standard on 09-01-2019 Breakpoint UA [facility] Comment on above: Performed By: #### 1 [id number], 26564033, 8635162 #### [facility] (DEFAULT) [address] [place] [address] 01332 Color (U) Yellow [facility] Comment on above: Performed By: #### 1 [id number], 66543423, 1942213 #### [facility] (DEFAULT) [address] [place] [address] 29139 Culture? Yes [facility] Comment on above: Performed By: #### 1 [id number], 80319588, 1386301 #### [facility] (DEFAULT) [address] [place] [address] 67710 Glucose (U) [Mass/Vol] Negative [facility] Comment on above: Performed By: #### 1 [id number], 21682318, 7364141 #### [facility] (DEFAULT) [address] [place] [address] 77193 Ketones Ql (U) Negative [facility] Comment on above: Performed By: #### 1 [id number], 07327702, [id number] #### [facility] (DEFAULT) [address] [place] [address] 57393 Micro? Indicated [facility] Comment on above: Performed By: #### 1 [id number], 77826070, [id number] #### [facility] (DEFAULT) [address] [place] [address] 34534 UA Bilirubin Negative Normal [facility] Comment on above: Performed By: #### 1 [id number], 05894495, 3404912 #### [facility] (DEFAULT) [address] [place] [address] 36948 UA Blood TRACE Abnormal NEGATIVE [facility] Comment on above: Performed By: #### 1 [id number], [id number], 7769366 #### [facility] (DEFAULT) [address] [place] [address] 19443 UA Clarity CLEAR Normal CLEAR [facility] Comment on above: Performed By: #### 1 [id number], 24966264, 5263644 #### [facility] (DEFAULT) [address] [place] [address] 02418 UA Leuk Est MODERATE Abnormal NEGATIVE [facility] Comment on above: Performed By: #### 1 [id number], 76532163, 7396517 #### [facility] (DEFAULT) [address] [place] [address] 99822 UA Nitrite Positive Abnormal NEGATIVE [facility] Comment on above: Performed By: #### 1 [id number], 56454290, 2264696 #### [facility] (DEFAULT) [address] [place] [address] 41572 UA pH 5.5 Normal 5-8 [facility] Comment on above: Performed By: #### 1 [id number], 55529830, 2676801 #### [facility] (DEFAULT) [address] [place] [address] 81292 UA Protein Negative Normal NEGATIVE [facility] Comment on above: Performed By: #### 1 [id number], 08925116, 5186944 #### [facility] (DEFAULT) [address] [place] [address] 20769 UA Spec Grav 1.025 Normal 1.001-1.[address] [place] [address] Comment on above: Performed By: #### 1 [id number], 96938079, 7232761 #### [facility] (DEFAULT) [address] [place] [address] 14104 UA Urobilinogen 0.2 mg/dL Normal 0.2-1.0 [facility] Comment on above: Performed By: #### 1 [id number], 50270380, [id number] #### [facility] (DEFAULT) [address] [place] [address] 26437 Urine Source Clean Catch Normal [facility] Comment on above: Performed By: #### 1 [id number], 50370356, 3247868 #### [facility] (DEFAULT) [address] [place] [address] 06505 JOINT PAIN INJECTIONon 09-06 JOINT PAIN INJECTION [facility] Department of Radiology [address] [place] [address] Patient Name: VINCENT HSU : 1935 Sex: F Age: Race: White Pt. Location: Patient Status: D Ordered Date: 08/08/2018 3:50:00 PM Completed Date: 09/06/2018 03:43 PM Requesting Provider: HERMELINDO HILLMAN Attending Provider: HERMELINDO HILLMAN Report Copy To: GYPSY MCMAHON Signs & Symptoms: M16.12 Unilateral primary osteoarthritis, left hip I10 History: Bryant Comments: , Dr. Ochoa , Body Part: [...] guidance. Electronically signed by:Christy Ochoa. Transcribed by: [email or web address], User Resident: Electronically Signed by: CHRISTY OCHOA @ 09/09/2018 05:57 PM Normal [facility] Comment on above: Order Comment: , Dr. Ochoa , Body Part: Hip , Side: LEFT , Dr. Ochoa , Body Part: Hip , Side: LEFT , , , Ordering Provider - HERMELINDO HILLMAN MD , CT 3D LOWER EXTREMITY WO CON TRAST LEFTon 08-02-2018 CT 3D LOWER EXTREMITY WO CONTRAST LEFT [facility] Department of Radiology [address] [place], [place] [id number] Patient Name: VINCENT HSU : 1935 Sex: F Age: Race: White Pt. 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 MEDICARE NO PC REQ [...] arthritis. Electronically signed by:Coy Jerome. Transcribed by: [email or web address], User Resident: Electronically Signed by: COY JEROME @ 08/08/2018 02:20 PM Normal [facility] Comment on above: Order Comment: , Jessie perkins left hip healing HIP LEFT 1 OR 2 VWS WITH PEL VISon 03-18-2018 HIP LEFT 1 OR 2 VWS WITH PELVIS [facility] Department of Radiology [address] [place] [id number] Patient Name: VINCENT HSU : 1935 [...] study Electronically signed by:Coy Jerome. Transcribed by: [email or web address], User Resident: Electronically Signed by: COY JEROME @ 03/18/2018 02:19 PM Normal [facility] Comment on above: Order Comment: , , = ========= , Ordering Provider - MIRTHA VELÁSQUEZ PA-C , HIP LEFT 1 OR 2 VWS WITH PEL VISon 01-10-2018 HIP LEFT 1 OR 2 VWS WITH PELVIS [facility] Department of Radiology [address] [place] [phone] Patient Name: VINCENT HSU : 1935 Sex: F Age: Race: White Pt. 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 Electronically signed by:Manjit Whatley. Transcribed by: [email or web address], User Resident: Electronically Signed by: MANJIT WHATLEY @ 01/10/2018 04:38 PM Normal [facility] Comment on above: Order Comment: , Elanae ws (X-RAY, HIP): Radiologic Protocol , Views (X-RAY, HIP): Radiologic Protocol , , , Ordering Provider - MIRTHA VELÁSQUEZ PA-C , HIP LEFT 1 OR 2 VWS WITH PEL VISon 11-01-2017 HIP LEFT 1 OR 2 VWS WITH PELVIS [facility] Department of Radiology [address] [place] [id number] Patient Name: VINCENT HSU : 1935 [...] study. Electronically signed by:Gerson Rodriguez. Transcribed by: [email or web address], User Resident: Electronically Signed by: GERSON RODRIGUEZ @ 11/01/2017 03:25 PM Normal [facility] Comment on above: Order Comment: , Carmella ws (X-RAY, HIP): Radiologic Protocol , Views (X-RAY, HIP): Radiologic Protocol , , , Ordering Provider - MIRTHA MORENO-C , HIP LEFT 1 OR 2 VWS WITH PEL VISon 09-21-2017 HIP LEFT 1 OR 2 VWS WITH PELVIS [facility] Department of Radiology [address] [place] [id number] Patient Name: VINCENT HSU : 1935 [...] fracture Electronically signed by:Coy Jerome. Transcribed by: [email or web address], User Resident: Electronically Signed by: COY JEROME @ 09/21/2017 03:27 PM Normal [facility] Comment on above: Order Comment: , , = ========= , Ordering Rebeka VELÁSQUEZ PA-C , Vital Signs Date Time Vital Sign Value Performing Clinician Facility 05-24-2023 13:35-0400 Body height 177.8 cm MD Gypsy Mcmahon Work Phone: [facility] 05-24-2023 13:35-0400 Body mass index (BMI) [Ratio] 18.8 kg/m2 MD Gypsy Mcmahon Work Phone: [facility] 05-24-2023 13:35-0400 Body temperature 97.7 [degF] MD Gypsy Mcmahon Work Phone: [facility] 05-24-2023 13:35-0400 Body weight 59.42 kg MD Gypsy Mcmahon Work Phone: [facility] 05-24-2023 13:35-0400 Diastolic blood pressure 54 mm[Hg] MD Gypsy Mcmahon Work Phone: [facility] 05-24-2023 13:35-0400 Heart rate 63 /min MD Gypsy Mcmahon Work Phone: [facility] 05-24-2023 13:35-0400 Systolic blood pressure 127 mm[Hg] MD Gypsy Mcmahon Work Phone: [facility] 05-21-2023 10:26-0400 Body height 177.8 cm MD Gypsy Mcmahon Work Phone: [facility] 05-21-2023 09:54-0400 Body mass index (BMI) [Ratio] 18.6 kg/m2 MD Gypsy Mcmahon Work Phone: [facility] 05-21-2023 09:54-0400 Body weight 58.96 kg MD Gypsy Mcmahon Work Phone: [facility] 05-05-2023 16:40-0400 Diastolic blood pressure 71 mm[Hg] MD Jacinto Max Work Phone: [facility] 05-05-2023 16:40-0400 Systolic blood pressure 170 mm[Hg] MD Jacinto Max Work Phone: [facility] 05-05-2023 16:36-0400 Body height 177.8 cm MD Jacinto Max Work Phone: [facility] 05-05-2023 16:36-0400 Body temperature 98.1 [degF] MD Jacinto Max Work Phone: [facility] 05-05-2023 16:36-0400 Body weight 59.87 kg MD Jacinto Max Work Phone: [facility] 05-05-2023 16:36-0400 Heart rate 71 /min MD Jacinto Max Work Phone: [facility] 05-05-2023 16:36-0400 Respiratory rate 18 /min MD Jacinto Max Work Phone: [facility] 05-05-2023 16:36-0400 SaO2% (BldA) [Mass fraction] 98 % MD Jacinto Max Work Phone: [facility] 04-15-2023 13:30-0500 Body height 167.64 cm MD Jacinto Max Work Phone: [facility] 04-15-2023 13:30-0500 Body mass index (BMI) [Ratio] 20.8 kg/m2 MD Jacinto Max Work Phone: [facility] 04-15-2023 13:30-0500 Body temperature 97.2 [degF] MD Jacinto Max Work Phone: [facility] 04-15-2023 13:30-0500 Body weight 58.57 kg MD Jacinto Max Work Phone: [facility] 04-15-2023 13:30-0500 Diastolic blood pressure 75 mm[Hg] MD Jacinto Max Work Phone: [facility] 04-15-2023 13:30-0500 Heart rate 60 /min MD Jacinto Max Work Phone: [facility] 04-15-2023 13:30-0500 Systolic blood pressure 165 mm[Hg] MD Jacinto Max Work Phone: [facility] 02-26-2023 10:00-0500 Body height 167.64 cm MD Jacinto Max Work Phone: [facility] 02-26-2023 10:00-0500 Diastolic blood pressure 76 mm[Hg] MD Jacinto Max Work Phone: [facility] 02-26-2023 10:00-0500 Systolic blood pressure 156 mm[Hg] MD Jacinto Max Work Phone: [facility] 02-25-2023 10:15-0500 Body height 175.26 cm MD Jacinto Max Work Phone: [facility] 02-25-2023 10:15-0500 Body weight 59.1 kg MD Jacinto Max Work Phone: [facility] 02-25-2023 10:02-0500 Diastolic blood pressure 74 mm[Hg] MD Jacinto Max Work Phone: [facility] 02-25-2023 10:02-0500 Heart rate 67 /min MD Jacinto Max Work Phone: [facility] 02-25-2023 10:02-0500 Systolic blood pressure 157 mm[Hg] MD Jacinto Max Work Phone: [facility] 02-18-2023 14:00-0500 Body height 167.64 cm Jacinto Max Other [facility] 02-18-2023 14:00-0500 Body mass index (BMI) [Ratio] 20.66 kg/m2 Jacinto Max Other [facility] [employer] Other 02-18-2023 14:00-0500 Body temperature 97.2 [degF] Jacinto Max Other [employer] Other 02-18-2023 14:00-0500 Body weight 58.06 kg Jacinto Max Other [employer] [facility] [employer] Other 02-18-2023 14:00-0500 Body weight 58.05 kg MD Jacinto Max Work Phone: [facility] 02-18-2023 14:00-0500 Diastolic blood pressure 66 mm[Hg] Jacinto Max Other [facility] 02-18-2023 14:00-0500 Systolic blood pressure 150 mm[Hg] Jacinto Max Other [facility] 02-16-2023 13:30-0500 Body height 167.64 cm Gypsy Mcmahon Other [facility] 02-16-2023 13:30-0500 Body mass index (BMI) [Ratio] 20.66 kg/m2 Gypsy Mcmahon Other [facility] [employer] Other 02-16-2023 13:30-0500 Body weight 58.06 kg Gypsy Mcmahon Other [facility] [employer] Other 02-16-2023 13:30-0500 Body weight 58.05 kg MD Jacinto Max Work Phone: [facility] 02-16-2023 13:30-0500 Diastolic blood pressure 68 mm[Hg] Gypsy Mcmahon Other [facility] 02-16-2023 13:30-0500 SaO2% (BldA) [Mass fraction] 96 % Gypsy Mcmahon Other [facility] [employer] Other 02-16-2023 13:30-0500 Systolic blood pressure 140 mm[Hg] Gypsy Mcmahon Other [facility] 02-04-2023 09:09-0500 Heart rate 84 /min MALATHI VIEIRA [facility] 02-04-2023 09:09-0500 SaO2% (BldA) [Mass fraction] 95 % MALATHI DEB [facility] 02-04-2023 09:08-0500 Diastolic blood pressure 88 mm[Hg] MALATHI DEB [facility] 02-04-2023 09:08-0500 Mean blood pressure 121 mm[Hg] MALATHI DEB [facility] 02-04-2023 09:08-0500 Systolic blood pressure 188 mm[Hg] MALATHI DEB [facility] 02-04-2023 09:08-0500 Respiratory rate 20 /min MALATHI DEB [facility] 02-04-2023 09:08-0500 Body temperature 97.7 [degF] MALATHI DEB [facility] 02-03-2023 09:15-0500 Heart rate 77 /min MALATHI DEB [facility] 02-03-2023 09:15-0500 SaO2% (BldA) [Mass fraction] 97 % MALATHI DEB [facility] 02-03-2023 09:14-0500 Respiratory rate 18 /min MALATHI DEB [facility] 02-03-2023 09:14-0500 Diastolic blood pressure 97 mm[Hg] MALATHI DEB [facility] 02-03-2023 09:14-0500 Mean blood pressure 130 mm[Hg] MALATHI DEB [facility] 02-03-2023 09:14-0500 Systolic blood pressure 197 mm[Hg] MALATHI DEB [facility] 02-03-2023 09:13-0500 Body temperature 98.06 [degF] MALATHI DEB [facility] 02-02-2023 09:10-0500 Heart rate 75 /min MALATHI DEB [facility] 02-02-2023 09:10-0500 SaO2% (BldA) [Mass fraction] 93 % MALATHI DEB [facility] 02-02-2023 09:09-0500 Respiratory rate 20 /min MALATHI DEB [facility] 02-02-2023 09:08-0500 Diastolic blood pressure 87 mm[Hg] MALATHI DEB [facility] 02-02-2023 09:08-0500 Mean blood pressure 123 mm[Hg] MALATHI DEB [facility] 02-02-2023 09:08-0500 Systolic blood pressure 194 mm[Hg] MALATHI DEB [facility] 02-02-2023 09:08-0500 Body temperature 97.7 [degF] MALATHI DEB [facility] 02-01-2023 09:50-0500 Heart rate 77 /min MALATHI DEB [facility] 02-01-2023 09:50-0500 Mean blood pressure 115 mm[Hg] MALATHI DEB [facility] 02-01-2023 09:10-0500 Heart rate 84 /min MALATHI DEB [facility] 01-29-2023 11:26-0500 Heart rate 75 /min MALATHI DEB [facility] 01-29-2023 11:26-0500 SaO2% (BldA) [Mass fraction] 95 % MALATHI DEB [facility] 01-29-2023 11:26-0500 Respiratory rate 16 /min MALATHI DEB [facility] 01-29-2023 11:25-0500 Diastolic blood pressure 83 mm[Hg] MALATHI DEB [facility] 01-29-2023 11:25-0500 Mean blood pressure 108 mm[Hg] MALATHI DEB [facility] 01-29-2023 11:25-0500 Systolic blood pressure 158 mm[Hg] MALATHI DEB [facility] 01-29-2023 11:25-0500 Body temperature 98.06 [degF] MALATHI DEB [facility] 01-29-2023 10:54-0500 Heart rate 74 /min MALATHI DEB [facility] 01-29-2023 10:54-0500 SaO2% (BldA) [Mass fraction] 97 % MALATHI DEB [facility] 01-29-2023 10:54-0500 Respiratory rate 16 /min MALATHI DEB [facility] 01-29-2023 10:53-0500 Body temperature 97.52 [degF] MALATHI DEB [facility] 01-29-2023 10:53-0500 Diastolic blood pressure 84 mm[Hg] MALATHI DEB [facility] 01-29-2023 10:53-0500 Mean blood pressure 104 mm[Hg] MALATHI DEB [facility] 01-29-2023 10:53-0500 Systolic blood pressure 146 mm[Hg] MALATHI DEB [facility] 01-12-2023 13:30-0500 Body height 167.64 cm Hunter Manny [facility] [employer] Other 01-12-2023 13:30-0500 Body mass index (BMI) [Ratio] 22 kg/m2 uHnter Brown Other [employer] Other 01-12-2023 13:30-0500 Body weight 61.83 kg Hunter Brown Other [employer] Other 01-12-2023 13:30-0500 Diastolic blood pressure 60 mm[Hg] Hunter Brown Other [employer] Other 01-12-2023 13:30-0500 Systolic blood pressure 137 mm[Hg] Hunter Brown Other [employer] Other 01-05-2023 11:30-0500 Body height 167.64 cm Gypsy Mcmahon Other [employer] Other 01-05-2023 11:30-0500 Body mass index (BMI) [Ratio] 21.63 kg/m2 Gypsy Mcmahon Other [employer] Other 01-05-2023 11:30-0500 Body weight 60.78 kg Gypsy Mcmahon Other [employer] Other 01-05-2023 11:30-0500 Diastolic blood pressure 72 mm[Hg] Gypsy Mcmahon Other [employer] Other 01-05-2023 11:30-0500 Systolic blood pressure 162 mm[Hg] Gypsy Mcmahon Other [employer] Other 12-28-2022 13:30-0500 Body height 167.64 cm Malathi Velázquez Other [employer] Other 12-28-2022 13:30-0500 Body mass index (BMI) [Ratio] 19.98 kg/m2 Malathi Velázquez Other [employer] Other 12-28-2022 13:30-0500 Body weight 56.16 kg Malathi Melania Other [employer] Other 12-28-2022 13:30-0500 Diastolic blood pressure 78 mm[Hg] Malathi Melania Other [employer] Other 12-28-2022 13:30-0500 Systolic blood pressure 146 mm[Hg] Malathi Melania Other [employer] Other 12-15-2022 11:15-0500 Body height 167.64 cm Gypsy Mcmahon Other [employer] Other 12-15-2022 11:15-0500 Body mass index (BMI) [Ratio] 21.53 kg/m2 Gypsy Mcmahon Other [employer] Other 12-15-2022 11:15-0500 Body weight 60.51 kg Gypsy Mcmahon Other [employer] Other 12-15-2022 11:15-0500 Diastolic blood pressure 73 mm[Hg] Gypsy Mcmahon Other [employer] Other 12-15-2022 11:15-0500 Systolic blood pressure 178 mm[Hg] Gypsy Mcmahon Other [employer] Other 09-22-2022 14:14-0400 Blood Pressure Location MALATHI VIEIRA [facility] 09-22-2022 14:14-0400 Diastolic blood pressure 90 mm[Hg] MALATHI VIEIRA [facility] 09-22-2022 14:14-0400 Heart rate 78 /min MALATHI VIEIRA [facility] 09-22-2022 14:14-0400 Systolic blood pressure 142 mm[Hg] MALATHI VIEIRA [facility] 09-01-2022 14:15-0400 Body height 167.64 cm Gypsy Mcmahon Other [employer] Other 09-01-2022 14:15-0400 Body mass index (BMI) [Ratio] 21.14 kg/m2 Gypsy Mcmahon Other [employer] Other 09-01-2022 14:15-0400 Body weight 59.42 kg Gypsy Mcmahon Other [employer] Other 09-01-2022 14:15-0400 Diastolic blood pressure 56 mm[Hg] Gypsy Mcmahon Other [employer] Other 09-01-2022 14:15-0400 Systolic blood pressure 132 mm[Hg] Gypsy Mcmahon Other [employer] Other 06-09-2022 13:42-0400 Diastolic blood pressure 71 mm[Hg] Marvin KWON [facility] 06-09-2022 13:42-0400 Heart rate 59 /min Marvin KWON [facility] 06-09-2022 13:42-0400 Systolic blood pressure 183 mm[Hg] Marvin KWON [facility] [place] 04-24-2022 11:30-0400 Body height 167.64 cm Hunter Brown Other [employer] Other 04-24-2022 11:30-0400 Body mass index (BMI) [Ratio] 22.11 kg/m2 Hunter Brown Other [employer] Other 04-24-2022 11:30-0400 Body weight 62.14 kg Hunter Brown Other [employer] Other 04-24-2022 11:30-0400 Diastolic blood pressure 70 mm[Hg] Hunter Brown Other [employer] Other 04-24-2022 11:30-0400 Systolic blood pressure 159 mm[Hg] Hunter Brown Other [employer] Other 04-07-2022 14:15-0500 Body height 167.64 cm Gypsy Mcmahon Other [employer] Other 04-07-2022 14:15-0500 Body mass index (BMI) [Ratio] 21.79 kg/m2 Gypsy Mcmahon Other [employer] Other 04-07-2022 14:15-0500 Body weight 61.24 kg Gypsy Mcmahon Other [employer] Other 04-07-2022 14:15-0500 Diastolic blood pressure 62 mm[Hg] Gypsy Mcmahon Other [employer] Other 04-07-2022 14:15-0500 Systolic blood pressure 130 mm[Hg] Gypsy Mcmahon Other [employer] Other 03-11-2022 13:35-0500 Body temperature 97.5 [degF] MD Gypsy Mcmahon Work Phone: [facility] 03-11-2022 13:35-0500 Diastolic blood pressure 61 mm[Hg] MD Gypsy Mcmahon Work Phone: [facility] 03-11-2022 13:35-0500 Heart rate 60 /min MD Gypsy Mcmahon Work Phone: [facility] 03-11-2022 13:35-0500 Respiratory rate 18 /min MD Gypsy Mcmahon Work Phone: [facility] 03-11-2022 13:35-0500 SaO2% (BldA) [Mass fraction] 96 % MD Gypsy Mcmahon Work Phone: [facility] 03-11-2022 13:35-0500 Systolic blood pressure 135 mm[Hg] MD Gypsy Mcmahon Work Phone: [facility] 02-16-2022 10:45-0500 Body height 167.64 cm Gypsy Mcmahon Other [facility] [employer] Other 02-16-2022 10:45-0500 Body mass index (BMI) [Ratio] 21.46 kg/m2 Gypsy Mcmahon Other [employer] [facility] [employer] Other 02-16-2022 10:45-0500 Body weight 60.33 kg Gypsy Mcmahon Other [employer] [facility] [employer] Other 02-16-2022 10:45-0500 Diastolic blood pressure 70 mm[Hg] Gypsy Mcmahon Other [employer] Other 02-16-2022 10:45-0500 Systolic blood pressure 120 mm[Hg] Gypsy Mcmahon Other [employer] Other 02-11-2022 12:00-0500 Body height 172.72 cm Hunter Brown Other [employer] Other 02-11-2022 12:00-0500 Body mass index (BMI) [Ratio] 20.83 kg/m2 Hunter Brown Other [employer] Other 02-11-2022 12:00-0500 Body weight 62.14 kg Hunter Brown Other [employer] Other 02-11-2022 12:00-0500 Diastolic blood pressure 68 mm[Hg] Hunter Brown Other [employer] Other 02-11-2022 12:00-0500 Systolic blood pressure 144 mm[Hg] Hunter Brown Other [employer] Other 01-05-2022 10:30-0500 Body height 172.72 cm Hunter Brown Other [employer] Other 01-05-2022 10:30-0500 Body mass index (BMI) [Ratio] 22.04 kg/m2 Hunter Brown Other [employer] Other 01-05-2022 10:30-0500 Body weight 65.77 kg Hunter Brown Other [employer] Other 01-05-2022 10:30-0500 Diastolic blood pressure 78 mm[Hg] Hunter Manny Other [employer] Other 01-05-2022 10:30-0500 Systolic blood pressure 166 mm[Hg] Hunter Manny Other [employer] Other 03-27-2021 12:00-0500 Body height 172.72 cm Giana Griffiths Other [employer] Other 03-27-2021 12:00-0500 Body mass index (BMI) [Ratio] 22.96 kg/m2 Giana Griffiths Other [employer] Other 03-27-2021 12:00-0500 Body weight 68.49 kg Giana Griffiths Other [employer] Other 01-27-2021 10:45-0500 Body height 172.72 cm Giana Griffiths Other [employer] Other 01-27-2021 10:45-0500 Body mass index (BMI) [Ratio] 24.48 kg/m2 Giana Griffiths Other [employer] Other 01-27-2021 10:45-0500 Body weight 73.03 kg Giana Griffiths Other [employer] Other Encounters Encounter Date Encounter Type Care Provider Facility Start: 11-05-2023 End: 11-05-2023 Evaluation and management of inpatient [facility] Start: 10-27-2023 End: 10-27-2023 Evaluation and management of inpatient GYPSY MCMAHON [facility] Start: 10-27-2023 End: 10-27-[address] [facility] Start: 10-20-2023 End: 10-20-[address] [facility] Start: 06-23-2023 End: 06-23-[address] [facility] Start: 06-17-2023 End: 06-17-2023 ambulatory [facility] Start: 06-15-2023 End: 06-15-2023 ambulatory MALATHI Wade VIEIRA Facility: [place] Start: 06-15-2023 End: 06-15-2023 Patient encounter procedure MALATHI VIEIRA [facility] Start: 05-28-2023 End: 05-28-2023 ambulatory Monie Nirav Wallace Facility:[facility] Start: 05-28-2023 End: 05-28-2023 ambulatory MD Gypsy Mcmahon Work Phone: [facility] Work Phone: Start: 05-28-2023 End: 05-28-2023 Patient encounter procedure MD Gypsy Mcmahon Work Phone: [facility]-CT Scan [facility] [place] Work Phone: Start: 05-25-2023 Non-patient / Non-visit MD Gypsy Mcmahon Work Phone: [facility] Work Phone: Start: 05-24-2023 End: 05-24-2023 Patient encounter procedure MD Gypsy Mcmahon Work Phone: [facility] Work Phone: Start: 05-21-2023 End: 05-21-2023 Patient encounter procedure MD Gypsy Mcmahon Work Phone: [facility] G[facility] Work Phone: Start: 05-06-2023 Non-patient / Non-visit MD Gypsy Mcmahon Work Phone: [facility] Work Phone: Start: 05-05-2023 End: 05-05-2023 Emergency department patient visit Marvin Bc Garcia Facility:[facility] Start: 05-05-2023 End: 05-05-2023 Emergency department patient visit MD Jacinto Max Work Phone: [facility]-Emergency Room Work Phone: Start: 05-01-2023 Non-patient / Non-visit MD Jacinto Max Work Phone: [facility] Work Phone: Start: 04-15-2023 End: 04-15-2023 Patient encounter procedure MD Jacinto Max Work Phone: [facility] Infectious Disease Work Phone: Start: 04-06-2023 Non-patient / Non-visit MD Jacinto Max Work Phone: [facility] Work Phone: Start: 03-12-2023 End: 03-12-2023 ambulatory Jacinto Max Other [facility] [employer] Other Start: 03-12-2023 Telephone encounter Jacinto Bust[facility] Start: 03-11-2023 End: 03-11-2023 ambulatory Jacinto Max Other [facility] [employer] Other Start: 03-11-2023 Telephone encounter Jacinto Bust[facility] Start: 03-02-2023 End: 03-02-2023 ambulatory Gypsy Mcmahon Other [facility] Other Start: 03-02-2023 Telephone encounter Gypsy Mcmahon [facility] Start: 02-26-2023 End: 02-26-2023 Patient encounter procedure MD Jacinto Max Work Phone: [facility]- Start: 02-25-2023 End: 02-25-2023 ambulatory Jacinto Max Facility:[facility] Start: 02-25-2023 End: 02-25-2023 ambulatory MD Jacinto Max Work Phone: [facility] Work Phone: Start: 02-25-2023 End: 02-25-2023 Discharged Recurring MD Jacinto Max Work Phone: [facility]-Infusion Therapy - O/P Work Phone: Start: 02-18-2023 End: 02-18-2023 ambulatory Jacinto Max Other [employer] Other Start: 02-18-2023 Office outpatient ne w 45 minutes Jacinto Max [facility] Infectious Disease Start: 02-18-2023 End: 02-18-2023 Patient encounter procedure MD Jacinto Max Work Phone: [facility] Infectious Disease Work Phone: Start: 02-16-2023 End: 02-16-2023 ambulatory Gypsy Mcmahon Other [employer] Other Start: 02-16-2023 Office outpatient visit 15 minutes Gypsy Mcmahon [facility] Start: 02-16-2023 End: 02-16-2023 Patient encounter procedure MD Jacinto Max Work Phone: [facility] Work Phone: Start: 01-29-2023 End: 05-05-2023 ambulatory MALATHI VIEIRA Facility:[facility] Start: 01-29-2023 End: 01-29-2023 Patient encounter procedure MALATHI VIEIRA [facility] Start: 01-29-2023 End: 05-05-2023 Recurring MALATHI VIEIRA [facility] Start: 01-26-2023 End: 01-26-2023 Patient encounter procedure MALATHI VIEIRA [facility] Start: 01-26-2023 End: 01-26-2023 ambulatory MALATHI VIEIRA [facility] [employer] Other Start: 01-26-2023 Telephone encounter Hunter Palomo ck [facility] Start: 01-20-2023 End: 01-20-2023 ambulatory Hunter Brown Other [employer] Other Start: 01-20-2023 Telephone encounter Hunter brady [facility] Start: 01-12-2023 End: 01-12-2023 ambulatory Hunter Brown Other [employer] Other Start: 01-12-2023 Office outpatient visit 25 minutes Hunter Brown [facility] Start: 01-12-2023 End: 01-12-2023 Patient encounter procedure MD Jacinto Max Work Phone: [facility] Gastroenterology Work Phone: Start: 01-11-2023 End: 01-11-2023 ambulatory Gypsy Mcmahon Other [employer] Other Start: 01-11-2023 Telephone encounter Gypsy Mcmahon [facility] Start: 01-05-2023 End: 01-05-2023 ambulatory Gypsy Mcmahon Other [employer] Other Start: 01-05-2023 Telephone encounter Gypsy Mcmahon [facility] Start: 01-05-2023 Transitional care manage srvc 14 day discharge Gypsy Mcmahon [facility] Start: 01-05-2023 End: 01-05-2023 Patient encounter procedure MD Jacinto Max Work Phone: [facility] Work Phone: Start: 12-30-2022 End: 12-30-2022 ambulatory Malathi Velázquez Other [employer] Other Start: 12-30-2022 Telephone encounter Malathi Boss her [facility] Start: 12-28-2022 End: 12-28-2022 ambulatory Malathi Velázquez Other [employer] Other Start: 12-28-2022 Office outpatient visit 15 minutes Malathi Velázquez [facility] Start: 12-28-2022 End: 12-28-2022 Patient encounter procedure MD Jacinto Max Work Phone: [facility] Work Phone: Start: 12-15-2022 End: 12-15-2022 ambulatory Gypsy Mcmahon Other [employer] Other Start: 12-15-2022 Office outpatient visit 15 minutes Gypsy Mcmahon [facility] Start: 12-15-2022 Telephone encounter Gypsy Mcmahon [facility] Start: 12-15-2022 End: 12-15-2022 Patient encounter procedure MD Jacinto Max Work Phone: [facility] Work Phone: Start: 11-11-2022 End: 11-11-2022 ambulatory AB [facility] Start: 10-29-2022 End: 10-29-2022 ambulatory Hunter Brown Facility:[facility] Start: 09-22-2022 End: 09-22-2022 ambulatory MALATHI VIEIRA Facility:[facility] Start: 09-22-2022 End: 09-22-2022 Patient encounter procedure MALATHI VIEIRA [facility] Start: 09-10-2022 End: 09-10-2022 ambulatory Jose G Ellington Other [employer] Other Start: 09-10-2022 Nursing evaluation o f patient and report Jose G Ellington [facility] [facility] Start: 09-08-2022 End: 09-08-2022 ambulatory Hunter Brown Other [facility] Other Start: 09-08-2022 Telephone encounter Hunter Palomo ck [facility] Start: 09-01-2022 End: 09-01-2022 ambulatory Gypsy Mcmahon Other [facility] Other Start: 09-01-2022 Office outpatient visit 15 minutes Gypsy Mcmahon [facility] Start: 08-27-2022 End: 08-27-2022 ambulatory Gypsy Mcmahon Other [facility] Other Start: 08-27-2022 Telephone encounter Gypsy Mcmahon [facility] Start: 06-30-2022 End: 06-30-2022 ambulatory [facility] Start: 06-09-2022 End: 06-09-2022 Patient encounter procedure Marvin KWON [facility] Start: 05-27-2022 End: 05-28-2022 ambulatory MALATHI VIEIRA Facility:H1 Start: 05-19-2022 End: 05-19-2022 Patient encounter procedure MALATHI VIEIRA [facility] Start: 05-14-2022 End: 05-14-2022 ambulatory Gypsy Mcmahon Other [facility] Other Start: 05-14-2022 Telephone encounter Gypsy Mcmahon [facility] Start: 05-11-2022 End: 05-12-[address] GYPSY MCMAHON Facility:[facility]1 Start: 05-01-2022 (Televisit) Televisit Gypsy Evangelista [facility] Start: 05-01-2022 End: 05-01-2022 ambulatory Gypsy Mcmahon Other [facility] Other Start: 05-01-2022 Telephone encounter Gypsy Mcmahon [facility] Start: 04-28-2022 End: 04-29-[address] GYPSY MCMAHON Facility:[facility]1 Start: 04-24-2022 End: 04-24-2022 ambulatory Hunter Brown Other [facility] Other Start: 04-24-2022 Office outpatient visit 15 minutes Hunter Brown [facility] Start: 04-16-2022 End: 04-16-2022 ambulatory Gypsy Mcmahon Other [facility] Other Start: 04-16-2022 Telephone encounter Gypsy Mcmahon [facility] Start: 04-14-2022 End: 04-14-[address] GYPSY MCMAHON Facility:[facility]1 Start: 04-07-2022 End: 04-07-2022 ambulatory Gypsy Mcmahon Other [facility] Other Start: 04-07-2022 Office outpatient visit 15 minutes Gypsy Mcmahon [facility] Start: 04-03-2022 End: 04-03-2022 ambulatory Gypsy Mcmahon Other [facility] Other Start: 04-03-2022 Telephone encounter Gypsy Mcmahon [facility] Start: 03-30-2022 End: 03-30-2022 Departed Referred MD Gypsy Mcmahon Work Phone: [facility] [place] Work Phone: Start: 03-30-2022 End: 03-30-2022 ambulatory MD Gypsy Mcmahon Work Phone: [facility] Work Phone: Start: 03-30-2022 Nursing evaluation o f patient and report Gypsy Mcmahon [facility] Start: 03-20-2022 End: 03-21-[address] GYPSY MCMAHON Facility:[facility]1 Start: 03-19-2022 End: 03-19-2022 ambulatory Hunter Brown Other [facility] Other Start: 03-19-2022 Telephone encounter Hunter Palomo [facility] Start: 03-11-2022 Registered Recurring MD Gypsy Mcmahon Work Phone: [facility] Work Phone: Start: 02-23-2022 End: 02-24-[address] GYPSY MCMAHON Facility:[facility]1 Start: 02-19-2022 End: 02-19-2022 ambulatory Gypsy Mcmahon Other [facility] Other Start: 02-19-2022 Telephone encounter Gypsy Mcmahon [facility] Start: 02-17-2022 End: 02-18-[address] GYPSY MCMAHON Facility:[facility]1 Start: 02-16-2022 End: 02-16-2022 ambulatory Gypsy Mcmahon Other [facility] Other Start: 02-16-2022 Office outpatient visit 15 minutes Gypsy Mcmahon [facility] Start: 02-16-2022 End: 02-16-2022 Departed Referred MD Gypsy Mcmahon Work Phone: [facility] [place] Work Phone: Start: 02-11-2022 End: 02-11-2022 ambulatory Hunter Brown Other [facility] Other Start: 02-11-2022 Office outpatient visit 15 minutes Hunter Brown [facility] Start: 02-11-2022 Telephone encounter Hunter brady [facility] Start: 01-26-2022 End: 01-27-[address] GYSPY MCMAHON Facility:[facility]1 Start: 01-15-2022 End: 01-16-[address] GYPSY MCMAHON Facility:[facility] Start: 01-06-2022 End: 01-06-2022 ambulatory Hunter Brown Other [facility] Other Start: 01-06-2022 Telephone encounter Hunter brady [facility] Start: 01-05-2022 End: 01-06-2022 ambulatory CLAU NASCIMENTO [facility] [employer] Other Start: 01-05-2022 Office outpatient visit 25 minutes Hunter Brown [facility] Start: 12-27-2021 End: 12-27-[address] REY MONTGOMERY Facility:[facility]1 Start: 12-18-2021 End: 12-19-2021 ambulatory CLAU NASCIMENTO Facility:[facility] Start: 12-08-2021 End: 12-09-[address] GYPSY MCMAHON Facility:[facility] Start: 11-18-2021 End: 11-18-2021 ambulatory Hunter Brown Other [facility] Other Start: 11-18-2021 Telephone encounter Hunter brady [...] 08-18-2021 End: 08-18-2021 ambulatory Giana Griffiths Other [facility] Other Start: 08-18-2021 Telephone encounter Giana Griffiths [facility] Start: 08-12-2021 End: 08-12-[address] GYPSY MCMAHON Facility:[facility] Start: 04-22-2021 End: 04-22-2021 ambulatory Giana Griffiths Other [facility] Other Start: 04-22-2021 Telephone encounter Giana Griffiths [facility] Start: 03-27-2021 End: 03-27-2021 ambulatory Giana Griffiths Other [facility] Other Start: 03-27-2021 Office outpatient visit 25 minutes Giana Griffiths [facility] Start: 01-27-2021 End: 01-27-2021 ambulatory Giana Griffiths Other [facility] Other Start: 01-27-2021 Office outpatient visit 25 minutes Giana Griffiths [facility] Start: 01-27-2021 Telephone encounter Giana Griffiths [facility] Procedures Date Procedure Procedure Detail Performing Clinician Start: 05-28-2023 Computed tomography of abdomen and pelvis with contrast MD Gypsy Mcmahon Work Phone: Start: 05-25-2023 E coli Shiga Toxin EIA MD Gypsy Mcmahon Work Phone: Start: 05-25-2023 Salmonella/Shigella Screen MD Gypsy Mcmahon Work Phone: Start: 05-06-2023 Bacteria identified in Urine by Culture MD Gypsy Mcmahon Work Phone: Start: 06-09-2022 Cystoscopy Marvin EMILI BOB Start: 02-16-2022 Piperacillin/tazobactam Gypsy Mcmahon Other Start: 02-16-2022 Urine culture MD Gypsy Mcmahon Work Phone: Start: 03-24-2012 Hernia of abdominal cavity (disorder) MALATHI VIEIRA Start: 10-07-2009 Cystoscopy MALATHI SPARROW Start: 09-12-2009 Introduction of tens ion free vaginal tape MALATHI VIEIRA Start: 07-25-2009 Urodynamic studies CAMMY GUERRERORY Bilateral cataracts (disorder) MALATHI DEB Coronary artery bypa ss grafts x 4 MALATHI DEB Excision of sphincte r of anus MALATHI VIEIRA Gallbladder structur e (body structure) MALATHI VIEIRA History of total hysterectomy MALATHI VIEIRA Knee region structur e (body structure) MALATHI VIEIRA Plan of Treatment Date Care Activity Detail Author Start: 03-30-2022 Bacteria identified in Urine by Culture [facility] Bacteria identified in Stool by Culture [facility] Bacteria identified in Urine by Culture [facility] Elastase.pancreatic [Mass/mass] in Stool [facility] Patient referral [facility] Work Phone: [facility] Immunizations Immunization Date Immunization Notes Care Provider Bob henry 02-16-2022 Shingrix 50 MCG/0.5M L; Translations: [Shingrix 50 MCG/0.5ML] Hunter Brown Other [facility] Other 01-15-2022 influenza virus vaccine, unspecified formulation MALATHI VIEIRA [facility] 01-15-2022 SARS-CoV-2 (COVID-19 ) [id number] MALATHI VIEIRA [facility] 01-23-2021 SARS-CoV-2 (COVID-19 ) mRNA BNT-162b2 vax MALATHI IVEIRA [facility] 01-06-2021 influenza virus vaccine, unspecified formulation MALATHI VIEIRA [facility] 03-27-2020 SARS-CoV-2 (COVID-19 ) mRNA BNT-162b2 vax MALATHI VIEIRA [facility] 03-04-2020 SARS-CoV-2 (COVID-19 ) mRNA BNT-162b2 vax MALATHI DEB [facility] 12-06-2019 influenza virus vaccine, unspecified formulation MALATHI DEB [facility] 12-14-2018 influenza virus vaccine, unspecified formulation MALATHI DEB [facility] 02-02-2018 influenza virus vaccine, unspecified formulation MALATHI DEB [facility] 11-08-2017 pneumococcal polysaccharide vaccine, 23 valent MALATHI DEB [facility] 11-02-2017 influenza virus vaccine, unspecified formulation MALATHI DEB [facility] 12-09-2016 influenza virus vaccine, unspecified formulation MALATHI DEB [facility] 12-02-2016 influenza virus vaccine, unspecified formulation MALATHI DEB [facility] 12-17-2015 influenza virus vaccine, unspecified formulation MALATHI DEB [facility] 10-10-2015 influenza virus vaccine, unspecified formulation MALATHI DEB [facility] 11-19-2014 influenza virus vaccine, unspecified formulation MALATHI DEB [facility] 11-09-2014 pneumococcal polysaccharide vaccine, 23 valent MALATHI DEB [facility] NEGATED: Highlighted row has not occurred!01-26-2023 influenza virus vaccine, unspecified formulation MALATHI VIEIRA [facility] Payers Date Payer Category Payer Self-pay [id number] [address] [id number] 1958 Medicare [id number] 2.1 [id number] 1936 Unknown [id number] 2.16.84 0.1.583239.3.579.2.593 1936 Unknown [id number] 2.16.84 0.1.083792.3.579.2.593 1936 Unknown [id number] 2.16.84 0.1.021666.3.579.2.593 1936 Unknown [id number] 2.16.84 0.1.749251.3.579.2.593 1936 Unknown [id number] 2.16.84 0.1.386636.3.579.2.593 1936 Unknown [id number] 2.16.84 0.1.415573.3.579.2.593 1936 Unknown [id number] 2.16.84 0.1.080616.3.579.2.593 1936 Unknown [id number] 2.16.84 0.1.886247.3.579.2.593 1936 Unknown [id number] 2.16.84 0.1.150916.3.579.2.593 1936 Unknown [id number] 2.16.84 0.1.244178.3.579.2.593 1936 Unknown [id number] 2.16.84 0.1.506059.3.579.2.593 1936 Unknown [id number] 2.16.84 0.1.340061.3.579.2.593 1936 Unknown [id number] 2.16.84 0.1.588944.3.579.2.593 1936 Unknown [id number] 2.16.84 0.1.441806.3.579.2.593 1936 Unknown [id number] 2.16.84 0.1.878216.3.579.2.593 1936 Unknown [id number] 2.16.84 0.1.819991.3.579.2.593 1936 Unknown [id number] 2.16.84 0.1.600003.3.579.2.593 1936 Unknown [id number] 2.16.84 0.1.452381.3.579.2.593 1936 Unknown [id number] 2.16.84 0.1.622564.3.579.2.593 1936 Unknown [id number] 2.16.84 0.1.950248.3.579.2.593 1936 Unknown [id number] 2.16.84 0.1.960852.3.579.2.593 1936 Unknown [id number] 2.16.8 40.1.736516.3.579.2.1286 1936 Unknown [id number] 2.16.8 40.1.779380.3.579.2.727 1936 Unknown [id number] 2.16.8 40.1.970935.3.579.2.727 1936 Unknown [id number] 2.16.8 40.1.768701.3.579.2.727 1936 Unknown [id number] 2.16.8 40.1.694070.3.579.2.727 1936 Unknown [id number] 2.16.8 40.1.270019.3.579.2.1286 1936 Unknown [id number] 2.16.8 40.1.569931.3.579.2.1286 1936 Unknown [id number] 2.16.8 40.1.830893.3.579.2.1286 1936 Unknown [id number] 2.16.8 40.1.611067.3.579.2.1286 1936 Unknown [id number] 2.16.8 40.1.640967.3.579.2.1286 Unknown [id number] 2.16.8 40.1.586720.3.579.2.531 Unknown [id number] 2.16.8 40.1.197554.3.579.2.531 Social History Date Type Detail Facility Unknown if ever smoked [facility] Other Sex Assigned At [facility] Start: 1935 Sex Assigned At Female F [facility] Start: 05-19-2022 End: 06-09-2022 Tobacco smoking status Ex-smoker (finding) [facility] Start: 09-22-2022 Tobacco smoking status Never [facility] Start: 05-05-2023 Tobacco smoking stat [facility] Never smoked tobacco (finding) [facility] Functional Status Date Assessment Result Facility 01-26-2023 Functional Status N/A [facility] 09-22-2022 Functional Status N/A [facility] 06-09-2022 Functional Status N/A [facility] 05-19-2022 Functional Status N/A [facility] Clinical Notes 01-27-2021 to 03-12-2023 Note Date & Type Note Facility 03-12-2023 Evaluation note Encounter Date Diagnosis Assessment Notes Mar, 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 Preventative measures were discussed. Vitamin C abkj-rla-rmpetle recommended as well as topical Thera workx [...] n due to immunosuppression (ICD-10 - Z91.89) [facility] Other 01-09-2024 Evaluation note* Encounter Date Diagnosis Assessment Notes Treatment Notes Treatment Clinical Notes Feb, C. difficile colitis (ICD-10 - A04.72) Discussed ID appt for frequent UTIs Feb, Acute URI (ICD-10 - J06.9) Recommend OTC meds that she is not sensitive to. 09 Nestor, 2024 Other complications following infusion, transfusion and therapeutic injection, initial encounter (ICD-10 - T80.89XA) pt reports pain after gentamicin. Had multiple injections. Give area time, heat and consider tylenol for pain. Feb, Pain, unspecified (ICD-10 - R52) [facility] Other 12-19-2023 Hospital Discharge instructions Patient Education 01/26/2023 16:05:17 Urinary Tract Infection, Adult, Rahn-yx-Arwl Urinary Tract Infection, Adult A urinary tract [...] Follow these instructions at home: Medicines Take enqy-ecz-wlkmrej and prescription medicines only as told by [...] provider. Document Revised: 09/06/2020 Document Reviewed: 09/06/2020 [employer] Patient Education 2022 [employer]. Follow Up Care 06/09/2022 14:50:19 With:MALATHI VIEIRA PA-C, URL Address: [address] [place] [address] [phone] When: Unknown Comments:f/u in [place] [facility] 12-13-2023 Evaluation note* Encounter Date Diagnosis Assessment Notes Treatment Notes Treatment Clinical Notes Jan, Diarrhea (ICD-10 - R19.7) [facility] Other 12-05-2023 Evaluation note* Encounter Date Diagnosis [...] a day, we will re-test for C-diff [facility] Other 11-28-2023 Evaluation note* Encounter Date Diagnosis Assessment Notes Treatment Notes Treatment Clinical Notes Dec, Clostridium difficile colitis (ICD-10 - A04.72) Finish meds as prescribed. (cipro, Flagyl) Followup w Dr. Brown as scheduled. Understands the c diff could recur. Followup as needed Discussed good nutrition and healthy diet. [facility] Other 11-20-2023 Evaluation note* Encounter Date Diagnosis Assessment Notes Treatment Notes Treatment Clinical Notes Dec, Diarrhea, unspecified type (ICD-10 - R19.7) Pt appears to be having secondary from viral infection. There is no abdominal pain on exam and pt is afebrile which is reassuring. C. diff infection is a possibility as she was recently treated [facility] antibitics for a UTI, will check [...] Pt understands and agrees with the plan. [facility] Other 11-07-2023 Evaluation note* Encounter Date Diagnosis Assessment Notes Treatment Notes Treatment Clinical Notes Dec, Frequent UTI (ICD-10 - N39.0) [facility] Other 11-07-2023 Evaluation note* Encounter Date Diagnosis [...] w Dr. Licea today. Consider PT at [facility] or [facility] [...] Rfl: miscellaneous medical supply (Blood Pressure Cuff) [facility], 1 kit in the morning and at [...] - Uncon (more content not included)...[facility]08-15-2023 Hospital Discharge instructions Patient Education 09/22/2022 15:32:53 Urinary Tract Infection, Adult, Uyir-hm-Mwjt Urinary Tract Infection, Adult A urinary tract [...] Follow these instructions at home: Medicines Take mraz-pnt-pxauxlc and prescription medicines only as told by [...] provider. Document Revised: 09/06/2020 Document Reviewed: 09/06/2020 [employer] Patient Education 2022 [employer]. Follow Up Care 09/22/2022 10:38:22 With:DEB ZAZUETA, MALATHI Olvera, URL Address: [address] [place] [id number] When: Unknown [facility] 08-03-2023 Evaluation note* Encounter Date Diagnosis Assessment Notes Treatment Notes Treatment Clinical Notes Sep, Dysuria (ICD-10 - R30.0) [facility] Other 08-01-2023 Evaluation note* Encounter Date Diagnosis Assessment Notes Treatment Notes Treatment Clinical Notes Sep, Microscopic colitis, unspecified microscopic colitis type (ICD-10 - K52.839) [facility] Other 07-25-2023 Evaluation note* Encounter Date Diagnosis Assessment Notes Treatment Notes Treatment Clinical Notes Aug, Frequent UTI (ICD-10 - N39.0) Continue estrogen cream. Review with Urology on her followup appt. Discussed causes of UTIs Aug, Lymphocytic colitis (ICD-10 - K52.832) Improved with GI at [facility]. 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 Barry. Reviewed medications and explained their purpose. [facility] Other 07-20-2023 Evaluation note* Encounter Date Diagnosis Assessment Notes Treatment Notes Treatment Clinical Notes Aug, Recurrent UTI (ICD-10 - N39.0) [facility] Chief Complaint: New [...] asked her to discuss this with her tree wrapper. Depending on the risk-benefit ratio will consider starting 1 or the other. She is on Zocor which is not ideal. If her cholesterol is not controlled, would suggest switching her to 40 mg of Lipitor or 20 mg of Crestor. Follow-up in 6 months or sooner should problems arise or her stress test revealed ischemia Jake Barry MD, MPH, [facility], [facility], [facility] Interventional Cardiology Pager Email: [email or web address] Hospital Discharge instructions Patient Education 06/09/2022 14:15:56 Urinary Tract Infection, Adult, Wgql-sn-Rjbz Urinary Tract Infection, Adult A urinary tract [...] Follow these instructions at home: Medicines Take fdpm-dex-bqtpuqf and prescription medicines only as told by [...] provider. Document Revised: 09/06/2020 Document Reviewed: 09/06/2020 [employer] Patient Education 2022 [employer]. Follow Up Care 06/01/2022 10:03:13 With:CHER KRISHNAN, Marvin Camacho, URL Address: [facility] [address] [place] [phone] When:10/10/2022 [facility] 04-11-2023 Hospital Discharge instructions Patient Education [...] Treatment for this condition includes: Antibiotic medicine. Hrin-arh-zewmbzy medicines to treat discomfort. Drinking enough water [...] Follow these instructions at home: Medicines Take izms-xlf-yvxntxx and prescription medicines only as told by [...] 11/04/2005 Document Revised: 01/12/2019 Document Reviewed: 08/04/2018 [employer] Patient Education 2020 [employer]. Follow Up Care 04/20/2022 10:50:51 With:MALATHI VIEIRA PA-C, URL Address: [address] [place] [address]. [place] [address] When: Unknown [facility] 04-06-2023 Evaluation note* Encounter Date Diagnosis Assessment Notes Treatment Notes Treatment Clinical Notes May, Frequent UTI (ICD-10 - N39.0) [facility] Other 03-24-2023 Evaluation note* Encounter Date Diagnosis [...] back this morning. antibiotic at her pharmacy. [facility] Other 03-17-2023 Evaluation note* Encounter Date Diagnosis Assessment Notes Treatment Notes Treatment Clinical Notes Apr, Lymphocytic colitis (ICD-10 - K52.832) Continue Entyvio as directed Continue Lotronex 0.5 mg 1/2 tablet daily Rto 4 months [facility] Other 03-09-2023 Evaluation note* Encounter Date Diagnosis Assessment Notes Treatment Notes Treatment Clinical Notes Apr, Acute cystitis without hematuria (ICD-10 - N30.00) [facility] Other 02-28-2023 Evaluation note* Encounter Date Diagnosis Assessment Notes Treatment Notes Treatment Clinical Notes Mar, Recurrent UTI (ICD-10 - N39.0) Discussed options. Will try estrogen cream for vaginal health. Denies personal history of female cancers. Will also set up w Urology Mar, Colitis (ICD-10 - K52.9) Further treatment with Dr. Brown w appt on 04/24 [facility] Other 02-20-2023 Evaluation note* Encounter Date Diagnosis Assessment Notes Treatment Notes Treatment Clinical Notes Mar, Dysuria (ICD-10 - R30.0) [facility] Other 01-09-2023 Evaluation note* Encounter Date Diagnosis Assessment Notes Treatment Notes Treatment Clinical Notes Feb, Acute cystitis without hematuria (ICD-10 - N30.00) Sent to [facility] for urine culture - will treat based on results. Feb, Encounter for immunization (ICD-10 - Z23) Feb, Microscopic colitis, unspecified microscopic colitis type (ICD-10 - K52.839) Keep appt w Dr. Brown. Discussed boost or other supplement to gain weight Feb, Gastric ulcer (ICD-10 - K25.9) Encouraged her to continue pantoprazole [facility] Other 01-04-2023 Evaluation note* Encounter Date Diagnosis Assessment Notes Treatment Notes Treatment Clinical Notes Feb, Lymphocytic colitis (ICD-10 - K52.832) Start Entyvio infusions every 8 weeks Continue Budesonide, Alosetron, Imodium, and Pepto for now until starting Entyvio. Pt to keep record of bowel movements - how many and consistency Follow up in 2 months Feb, Fecal incontinence (ICD-10 - R15.9) [facility] Other 11-28-2022 Evaluation note* Encounter Date Diagnosis [...] Pantoprazole as prescribed Okay to stop Sucralfate [facility] Other 09-25-2022 NoteOPERATIVE NOTE OPERATION DATE: 11/04/2021 [...] was taken to PACU in good condition.[facility] 03-27-2021 Evaluation note* Encounter Date Diagnosis Assessment Notes Treatment Notes Treatment Clinical Notes Mar, Microscopic colitis, unspecified microscopic colitis type (ICD-10 - K52.839) INCREASE COLESTIPOL TO 4 TABS AT LUNCHTIME DAILY IF NOT IMPROVED ON HIGHER DOSE PT TO CALL ON 03/31 FOR ALTERNATIVE PLAN Mar, Irritable bowel syndrome with diarrhea (ICD-10 - K58.0) [facility] Other 12-20-2021 Evaluation note* Encounter Date Diagnosis Assessment Notes Treatment Notes Treatment Clinical Notes Jan, Microscopic colitis, unspecified microscopic colitis type (ICD-10 - K52.839) START COLESIPOL 2 PO DAILY CONTINUE BUDESONIDE WITHOUT CHANGE 3 PO Q AM AND MAYBE CONSIDERING STOP THIS IF COLESTIPOL IS WORKING ENOUGH TO CONTROL HER SYMPTOMS [facility] Other 12-20-2021 Evaluation note* Encounter Date Diagnosis Assessment Notes Treatment Notes Treatment Clinical Notes Jan, Microscopic colitis, unspecified microscopic colitis type (ICD-10 - K52.839) [facility] Other Evaluation + Plan note No data available for this section [facility] evaluation + Plan note Future Appointments Appointment Date:10/27/2022 01:00:00 PM Scheduled Provider:MALATHI VIEIRA PA-C Location:[facility] Appointment Type:URO Office Visit [facility] Evaluation + Plan note Future Appointments Appointment Date:12/29/2022 01:00:00 PM Scheduled Provider:MALATHI VIEIRA PA-C Location:[facility] Appointment Type:URO Office Visit [facility] evaluation + Plan note Future Appointments Appointment Date:06/15/2023 02:00:00 PM Scheduled Provider:MALATHI VIEIRA PA-C Location:[facility] Appointment Type:URO Office Visit [facility] evaluation + Plan note Future Appointments Appointment Date:01/30/2023 10:30:00 AM Scheduled Provider: [facility] Appointment Type:ASU IV Antibiotic (FT) Appointment Date:01/31/2023 10:30:00 AM Scheduled Provider: [facility] Appointment Type:ASU IV Antibiotic (FT) Appointment Date:02/01/2023 10:30:00 AM Scheduled Provider: Location:[facility] Appointment Type:ASU IV Antibiotic (FT) Appointment Date:02/02/2023 10:30:00 AM Scheduled Provider: Location:[facility] Appointment Type:ASU IV Antibiotic (FT) Appointment Date:02/03/2023 10:30:00 AM Scheduled Provider: Location:[facility] Appointment Type:ASU IV Antibiotic (FT) Appointment Date:02/04/2023 10:30:00 AM Scheduled Provider: Location:[facility] Appointment Type:ASU IV Antibiotic (FT) Appointment Date:06/15/2023 02:00:00 PM Scheduled Provider:MALATHI VIEIRA PA-C Location:[facility] Appointment Type:URO Office Visit [facility] noteNo InformationNorth [facility] Other Evaluation noteNo assessment information available [facility] Work Phone: Evaluation note* Diagnosis Onset Date Resolution Status Recurrent Clostridioides difficile diarrhea acute [facility] Work Phone: Evaluation note* Diagnosis Onset Date Resolution Status Recurrent Clostridioides difficile diarrhea acute Diarrhea acute Microscopic colitis acute Recurrent Clostridioides difficile diarrhea acute Recurrent UTI acute [facility] Work Phone: Hisctzq general Narrative - Reported* Type Description Date Medical History HTN Medical History hyperlipidemia Medical History microscopic colitis Surgical History T&A Surgical History Quad by-pass Surgical History total hysterectomy Surgical History gall bladder Surgical History Cataracts Surgical History Right Knee Scope Surgical History Sphincterectomy Surgical History Left Rotator Scope Surgical History Hernia Repair 03/24/2012 Hospitalization History See Surgical Hx [employer] Other [facility] general Narrative - Reported* Type Description Date [...] Hospitalization History See Surgical Hx Hospitalization History [facility] 12/2022 [employer] Other Hiss[facility] general Narrative - Reported* Type Description Date [...] Hospitalization History See Surgical Hx Hospitalization History [facility] 12/2022 [employer] Other Hisqszm general Narrative - Reported* Type Description Date [...] Hospitalization History See Surgical Hx Hospitalization History [facility] 12/2022 [employer] Other History general Narrative - Reported* Type [...] Hospitalization History See Surgical Hx Hospitalization History [facility] 12/2022 [employer] Other Hospital Discharge instructions No data available for this section [facility] data available for this section [facility] Summary Purpose Family History No Family [...] November 22, 2017 10:57am Hospital Course Note [facility] Discharge Summary PERSON INFORMATION Name VINCENT HSU Age 83 Years 1935 Sex FEMALE Language Macedonian PCP Lisandro KRISHNAN, Gypsy Olvera Marital Status Med Service Med/Surg Acct# Arrival 09/25/2019 06:52:00 Visit Reason SURGERY - LEFT TOTAL HIP Acuity [facility] Address: [address] [place] [address] Comment: PROVIDER INFORMATION VITALS INFORMATION Vital Sign [...] Recurrent UTI Reason for Referral Reason DUPLICATE [place] office - frequent UTIs. Diagnosis 1 Frequent UTI (N39.0) Referral Organization [facility] Referring Provider First Name Gypsy Referring Provider Last Name Lisandro Referring Provider [facility] zhiwo Referred [facility] Referred Provider Beau Hernandez Referred Address [address],[place],[address] Referred Provider Specialty Urology Referral Priority Routine General Notes Tatyana Bojorquez 01:56:52 PM >received today Tatyana Bojorquez 05/14/2022 02:02:41 PM >attachments made, notes locked, referral faxed Tatyana Bojorquez 05/14/2022 03:25:50 PM >DUPLICATE REFERRAL Reason *FU 04/28 [place] office - recurrent UTIs. Diagnosis 1 Recurrent UTI (N39.0 ) Referral Organization [facility] ([employer] jah Referring Provider First Name Gypsy Referring Provider Last Name Lisandro Referring Provider [facility]wo [facility] Referred Provider Gerson Juárez Referred Address [address],[place],[address] Referred Provider Specialty Urology Referral Priority Routine General Notes Jerome Bojorquezya 03:40:45 PM >received today, attachments made, waiting for notes to be locked [place] Tatyana 04/10/2022 08:38:22 AM >notes locked, referral faxed [place] Tatyana 04/20/2022 07:51:15 AM >faxed first attempt letter Tatyana Bojorquez 04/21/2022 07:46:20 AM >received fax that referral was never received. refaxed at this time. Additional Source Comments INFORMATION SOURCE (unrecogn ized section and content) DATE CREATED AUTHOR 09/17/2018 [facility] DATE CREATED AUTHOR AUTHOR'S ORGANIZ ATION 10/30/2019 [facility] DATE CREATED AUTHOR AUTHOR'S ORGANIZ ATION 05/31/2022 [facility] DATE CREATED AUTHOR AUTHOR'S ORGANIZ ATION 11/15/2022 [facility] DATE CREATED AUTHOR AUTHOR'S ORGANIZ ATION 05/30/2023 [facility] DATE CREATED AUTHOR AUTHOR'S ORGANIZ ATION 06/19/2023 [facility] DATE CREATED AUTHOR AUTHOR'S ORGANIZ ATION 07/29/2023 [facility] DATE CREATED AUTHOR AUTHOR'S ORGANIZ ATION 10/29/2023 [facility] DATE CREATED AUTHOR AUTHOR'S ORGANIZ ATION 11/08/2023 [facility] REASON FOR VISIT (unrecogniz ed section [...] on alosetron, Patient was recently inpatient at [facility] and was diagnosed with gastric ulcerPRESCRIPTIONPATIENT [...] End: May 21, 2023 Monie Wallace , DO Attending Provider Active St art: [...] 2023 End: May 28, 2023 Monie L Madison , DO Attending Provider Active St art: [...] Member Role Status Dates Malathi Velázquez APRN ENGINEERING GEOLOGIST-C Attending Provider Act jamar Start: December 28, [...] BE BASED ON THE PRIMARY CLINICAL RECORDS. [facility] [employer] provides no warranty or guarantee of the accuracy or completeness of information in this document.
== END 2023-11-09 10:26 | disposition home or self-care (01) ==
LOC: WC 10:26
PROVIDERS: PCP Family Medicine; Visit Provider Physician Assistant
DX: I87.331 Chronic venous hypertension (idiopathic) with ulcer and inflammation of right lower extremity (principal); L97.812 Non-pressure chronic ulcer of other part of right lower leg with fat layer exposed
CPT/HCPCS: G0463

== ENCOUNTER 2023-11-16 07:56 | Outpatient (OUT) | payer MEDICARE, BC, SELFPAY ==
--- NOTE | 2023-11-16 07:56 | CA_ITS ---
Patient Name: SAGE HSU MR#: [id number] : 1935 Exam Date: 11/16/2023 Ordering Doctor: KYREE FLETCHER CNP ECHOCARDIOGRAM REPORT PROCEDURE: CA ECHO DOPPLER COMPLETE INDICATIONS: Hypertension, CAD eval COMPARISON: None. DESCRIPTION: COMPLETE ECHOCARDIOGRAM Real-time transthoracic echocardiography with 2D, M-mode, spectral and color flow Doppler performed. QUALITY: Technical quality was good. LEFT VENTRICLE: Normal chamber size. Moderate concentric left ventricular hypertrophy. LV EF: Global left ventricular systolic function is normal. Calculated left ventricular ejection fraction is 67%. No segmental wall motion abnormalities. DIASTOLIC: Diastolic function is indeterminate. ATRIAL SEPTUM: Inadequately seen. LEFT ATRIUM: Severe dilatation. RIGHT ATRIUM: Severe dilatation. RIGHT VENTRICLE: Normal chamber size. Normal right ventricular systolic function. TRICUSPID VALVE: Normal mobility and thickness. Moderate regurgitation. Mild pulmonary hypertension. RVSP 40mmHg MITRAL VALVE: Normal mobility and thickness. No evidence of mitral valve stenosis. There is no mitral annular calcification. Mild to moderate mitral regurgitation. AORTIC VALVE: Normal trileaflet appearance. Moderately calcified aortic valve. Normal leaflet mobility. No evidence of aortic valve stenosis. No aortic regurgitation. AORTIC ROOT: Normal diameter and appearance. PULMONIC VALVE: Normal thickness and mobility. No stenosis. Trivial regurgitation. PERICARDIUM: No evidence of pericardial effusion. IVC: Collapses with inspirations. Normal size CONCLUSION: 1. Global left ventricular systolic function is normal; visually estimated ejection fraction is 60 to 65% 2. Moderate increased left ventricular wall thickness 3. Normal right ventricular size and systolic function 4. Diastolic function is indeterminate 5. Biatrial dilatation 6. Moderate tricuspid regurgitation 7. Mildly elevated right ventricular systolic pressure; RVSP 40 mmHg 8. Mild to moderate mitral regurgitation Adult Echocardiography Procedure Report Left Ventricle LVEDD (3.7 - 5.6 cm): 4.63 cm LVESD (2.2 - 4.0 cm): 3.25 cm LVIVS thickness (0.6 - 1.2 cm): 1.28 cm LVPW thickness (0.5 - 1.0 cm): 1.31 cm e': 0.10 m/s E - e': 9.70 LVOT Max Gradient: 3.59 mm[Hg] LVOT Area (cm2): 0.95 m/s Peak Velocity (LVOT): 0.95 m/s Mean Velocity (LVOT): 0.64 m/s LVOT Diameter 1.92 cm Left Ventricular Ejection Fraction: 67.12 % Left Atrium LA Volume Index (2D A2C): 52.52 ml/m2 Left Atrium Systolic Dimension: 3.68 cm Mitral Valve MV E to A Ratio: 1.35 Mitral Valve A-Wave Peak Velocity: 0.74 m/s Mitral Valve E-Wave Peak Velocity: 0.99 m/s Right Ventricle RV Internal Diastolic Dimension: 3.49 cm Aorta AO Root Diam: 3.07 cm Ascending Ao Diam: 2.56 cm Aortic Valve AoV Area (Peak Tommy): 1.91 cm2, 1.91 cm2 AoV Area (VTI): 1.97 cm2, 1.97 cm2 Peak Velocity(Antegrade Flow): 1.44 m/s Peak Gradient(Antegrade Flow): 8.30 mm[Hg] Mean Velocity(Antegrade Flow): 0.92 m/s Mean Gradient(Antegrade Flow): 3.93 mm[Hg] Velocity Time Integral: 34.74 cm Tricuspid Valve Peak Velocity (Regurgitant Flow): 2.67 m/s, 2.82 m/s, 3.03 m/s Pulmonic Valve Mean Gradient: 2.00 mm[Hg] Mean Velocity: 0.66 m/s Peak Velocity: 0.93 m/s, 1.01 m/s Peak Gradient: 4.11 mm[Hg], 3.48 mm[Hg] Right Atrium Right Atrium Systolic Pressure: 72.93 ml, 72.93 ml Dictated by: Jake Barry M.D. on 11/17/2023 at 16:18 Approved by: Jake Barry M.D. on 11/17/2023 at 16:37
--- OUTSIDE RECORDS SUMMARY | 2023-11-16 08:05 | XMS_ITS | CCD ---
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 Name Role Phone Jian Giana Unavailable Hunter Brown Unavailable MD Gypsy Mcmahon Primary Care Provider [phone] MD Gypsy Mcmahon Attending Provider MD Hunter Brown Attending Provider Gypsy Mcmahon Unavailable GYPSY MCMAHON Primary Care Physician [phone] DR GYPSY MCMAHON Admitting Unavailable MCMAHON, DR GYPSY Olvera Consulting Unavailable MCMAHON, DR GYPSY Olvera Attending Unavailable MCMAHON, DR GYPSY Olvera Primary Care Unavailable VALENTINA, DR REY Bustamante Attending Unavailabl wade MONTGOMERY, DR REY Bustamante Consulting Unavailjhonatan MONTGOMERY, DR REY Bustamante Admitting Unavailjhonatan e MCMAHON, DR GYPSY Olvera Primary Care [...] GYPSY Olvera Consulting Unavailable MCMAHON, DR GYPSY Olevra Primary Care Unavailable VALENTINA, DR REY Bustamante [...] KANDI Consulting Unavailable YAKELIN, HERNANDO Consulting Unavailable MIKEYWALDO, MCCORD H Consulting Unavailable GIANA HOLLY Consulting Unavailable KIM ., KATIE HOWELL Consulting Unavailable JUNGERMANN, JENNIFER Consulting Unavailable GEMBUS, ROBERT Consulting Unavailable PATRICIA, ANG Consulting Unavailable HIGHLANDER, CLAU Shrestha Attending Unavailable HIGHLANDER, CLAU D Admitting Unavailable MCMAHON, DR GYPSY Olvera Primary Care Unavailable Jose G Ellington Unavailable Malathi Velázquez Unavailable MD Jacinto Max Attending Provider MD Jacinto Max Referring Provider MD Gypsy Mcmahon Primary Care Provider [phone] Jacinto Max Unavailable MD Jacinto Max Attending Provider MD Jacinto Max Referring Provider MD Gypsy Mcmahon Primary Care Provider TuDO Marvin krishnamurthy Emergency Provider MD Gypsy Mcmahon Primary Care Provider DO Monie Wallace Attending Provider Jacinto Max Admitting Unavailable Jacinto Max Attending Unavailable Jacinto Max Referring Unavailable Gypsy Mcmahon E Primary Care Unavailable Madison, Monie Gastelum Attending Unavailable LyMonie Admitting Unavailable Mcmahon, Gypsy E Primary Care Unavailable Marvin Garcia Admitting Unavailable Marvin Garcia Attending Unavailable Mcmahon, Gypsy E Primary Care Unavailable Hunter Brown Admitting UnavailHunter Grimes Attending Unavailabl e Mcmahon, Gypsy E Primary Care Unavailable ROYAL, MOHAMED F Attending Unavailable MCMAHON, GYPSY E Referring Unavailable MCMAHON, GYPSY E Primary Care Unavailable DEBMALATHI Attending Unavailable DEBMALATHI Attending Unavailable DEB, MALATHI Olvera Referring Unavailable DEB, MALATHI Olvera Admitting Unavailable DEB, MALATHI Olvera Attending Unavailable [...] Unavailable MCMAHON, GYPSY E Primary Care Unavailable KYREE FLETCHER Attending Unavailable Allergies Allergy Classification Reported Allergen(s) Allergy Type Date of Onset Reaction(s) Facility (20 sources) Promethazine; Translations: [promethazine] Drug Allergy 02-04-20 13 anaphylaxis, Anaphylaxis (disorder) [facility] (20 sources) histamines Drug allergy Unknown [employer] Other (10 sources) Histamine H2 Inhibitors; Translations: [Histamine H2 Inhibitors] Allergy to substance 07-16-19 13 Unknown Reaction [facility] (20 sources) levoFLOXacin; Translations: [levofloxacin] Drug Allergy 07-01-19 23 Tremor (finding) [facility] (1 source) diphenhydrAMINE Drug Allergy 04-20-19 [facility] (1 source) ezetimibe Drug Allergy 04-20-19 [facility] (1 source) Gemfibrozil Drug Allergy 04-20-19 [facility] (2 sources) Levamisole; Translations: [Phenergan] Drug Allergy 07-16-19 13 [facility] (3 sources) NSAIDs; Translations: [NSAIDS (NON-STEROIDAL ANTI-INFLAMMATORY DRUG)] Drug allergy (disorder) 04-20-19 20 [facility] (1 source) Nasal Decongestant Drug allergy (disorder) 04-20-19 20 [facility] (1 source) Darvocet-N 100 Drug allergy (disorder) 04-20-19 20 [facility] (11 sources) diphenhydrAMINE; Translations: [diphenhydramine] Drug Allergy jumpy,, Unknown [facility] (14 sources) Penicillin; Translations: [penicillin] Drug Allergy Eruption of skin (disorder) [facility] (6 sources) Penicillins; Translations: [Penicillins] Propensity to adverse reactions 02-25-19 Rash [facility] (2 sources) Antihistamines Allergy to substance 02-26-19 Unknown Reaction [facility] (1 source) Promethazine Drug Allergy 12-07-19 [facility] (2 sources) diphenhydrAMINE; Translations: [DIPHENHYDRAMINE [...] reactions to drug (disorder) 10-14-19 [facility] (1 source) Histamine; Translations: [HISTAMINE] Drug Allergy 02-04-20 [facility] Medications Current Medications Medication Drug [...] Status: Ordered take 1 tablet by ad every twenty-four hours Clopidogrel Bisulfate 75 MG [...] capsule (2 sources) Start: 04-15-2023 lactobacillus acidophilus [id number] unt oral tablet (2 sources) take 1 [...] procedure, # 2 cap(s), Refills(s) 0, Pharmacy: [facility]/pharmacy #[id number], 178, cm, 05/19/22 13:31:00 EDT, [...] disease (20 sources) Atherosclerotic heart disease of [place] coronary artery without angina pectoris; Translations: [Coronary [...] 05-14-2022 Chronic Gangrene (2 sources) Atherosclerosis of [place] arteries of extremities with gangrene, right leg; Translations: [Atherosclerosis of [place] arteries of extremities with gangrene, right leg] [...] 02-04-2022 Chronic Other aftercare (1 source) Other alf (current) drug therapy; Translations: [OTH FCI CURRENT [...] and visceral atherosclerosis (16 sources) 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; Translations: [Atherosclerosis of [place] arteries of left leg with ulceration of [...] PNEUMONIAE CAUSE OF DZ CLASS ELSW] Onset: 10-03-2022 Episodic Deficiency and other anemia (1 source) [...] Onset: 11-02-2021 Episodic Other aftercare (1 source) 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; Translations: [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 CURRENT USE OF ASPIRIN] Onset: 11-10-2021 Episodic Other diseases of veins and lymphatics (1 source) Venous insufficiency (chronic) (peripheral); Translations: [VENOUS INSUFF CHRONIC PERIPHERAL] Onset: 11-10-2021 Episodic Unclassified (7 sources) Finding of sensation of bladder 05-19-2022 Unclassified (1 source) CONTACT W/AND (SUSP) EXPOS COVID-19; Translations: [CONTACT W/AND (SUSP) EXPOS COVID-19] Onset: 08-12-2021 Results Test Name Value Interpretation Reference Range Facility Office Visiton 11-09-2023 Follow-up visit [id number] Delicia Hsu 1935 F Date Provider Department Center 11/09/2023 KYREE PANTOJA CARD [facility] Family History Problem Relation Age of Onset Aneurysm Mother Heart attack Father Family Status - Relation Status Age at Mother Father Level of Service:00676 SD OFFICE/OUTPATIENT ESTABLISHED MOD MDM 30 MIN Reason for Visit and Comments: Pre-op Exam [974354] Hypertension [883713] Coronary Artery Disease [187] Normal [facility] POC BUN CREATon 11-05-2023 Creatinine [Mass/Vol] 1.6 mg/dL High 0.4-1.0 [facility] Comment on above: Result Comment: METH OD TRACEABLE TO IDMS STANDARD Performed By: #### I BC #### [facility] ([id number]) [address] [place] [address] GFR/1.73 sq M.predicted among non-blacks MDRD (S/P/Bld) [Vol rate/Area] 31 mL/min/{1.73_m2} Low >59 [facility] Comment on above: Result Comment: Reported eGFR is based on the CKD-EPI 2020 equation that does not use a race coefficient. Performed By: #### I BC #### [facility] ([id number]) [address] [place] [address] Urea nitrogen [Mass/Vol] 25 mg/dL Normal 6-27 [facility] Comment on above: Performed By: #### I BC #### [facility] ([id number]) [address] [place] [address] BASIC METABOLIC PANLon 10-26 Anion gap [Moles/Vol] 11 mmol/L Normal 5-15 [facility] Comment on above: Performed By: #### P INR, 08554-4 #### [facility] ([id number]) [address] [place] [address] #### CBCA, BMP #### [facility] ([id number]) [address], [address] [place] [address] Calcium [Mass/Vol] 9.9 mg/dL Normal 8.5-10.5 [facility] Comment on above: Performed By: #### P INR, 58060-2 #### [facility] ([id number]) [address] [place] [address] #### CBCA, BMP #### [facility] ([id number]) [address], [address] [place] [address] Chloride [Moles/Vol] 103 mmol/L Normal 98-109 [facility] Comment on above: Performed By: #### P INR, 33278-4 #### [facility] ([id number]) [address] [place] [address] [place] [address] #### CBCA, BMP #### [facility] ([id number]) [address], [address] [place] [address] CO2 [Moles/Vol] 27 mmol/L Normal 22-32 [facility] Comment on above: Performed By: #### P INR, 09165-5 #### [facility] ([id number]) [address] [place] [address] #### CBCA, BMP #### [facility] ([id number]) [address], [address] [place] [address] Creatinine [Mass/Vol] 1.15 mg/dL High 0.40-1.00 [facility] Comment on above: Result Comment: METH OD TRACEABLE TO IDMS STANDARD Performed By: #### P INR, 14060-7 #### [facility] ([id number]) [address] [place] [address] #### CBCA, BMP #### [facility] ([id number]) [address], [address] [place] [address] GFR/1.73 sq M.predicted among non-blacks MDRD (S/P/Bld) [Vol rate/Area] 46 mL/min/{1.73_m2} Low >59 [facility] Comment on above: Result Comment: Reported eGFR is based on the CKD-EPI 1 equation that does not use a race coefficient. Performed By: #### P INR, 51244-9 #### [facility] ([id number]) [address] [place] [address] #### CBCA, BMP #### [facility] ([id number]) [address], [address] [place] [address] Glucose [Mass/Vol] 70 mg/dL Normal 65-99 [facility] Comment on above: Performed By: #### P INR, 96375-8 #### [facility] ([id number]) [address] [place] [address] #### CBCA, BMP #### [facility] ([id number]) [address] [facility], [address] [place] [address] Potassium [Moles/Vol] 4.1 mmol/L Normal 3.5-5.0 [facility] Comment on above: Performed By: #### P INR, 73143-8 #### [facility] ([id number]) [address] [place] [address] #### CBCA, BMP #### [facility] ([id number]) [address] [facility], [address] [place] [address] Sodium [Moles/Vol] 141 mmol/L Normal 134-146 [facility] Comment on above: Performed By: #### P INR, 97421-7 #### [facility] ([id number]) [address] [place] [address] #### CBCA, BMP #### [facility] ([id number]) [address] [facility], [address] [place] [address] Urea nitrogen [Mass/Vol] 24 mg/dL Normal 5-27 [facility] Comment on above: Performed By: #### P INR, 92912-7 #### [facility] ([id number]) [address] [place] [address]48[address] #### CBCA, BMP #### [facility] ([id number]) [address] [address], [address] [place] [address] CBC AND AUTO DIFFon 18-20 24 ABSOLUTE BASOPHIL 0.0 X10E9/L Normal 0.0-0.2 [facility] Comment on above: Performed By: #### P INR, 59825-7 #### [facility] ([id number]) [address] [place] [address] #### CBCA, BMP #### [facility] ([id number]) [address], [address] [place] [address] ABSOLUTE NEUTROPHIL 5.5 X10E9/L Normal 1.5-6.6 [facility] Comment on above: Performed By: #### P INR, 47413-1 #### [facility] ([id number]) [address] [place] [address] #### CBCA, BMP #### [facility] ([id number]) [address] [facility] [facility], [address] [place] [address] Basophils/100 WBC (Bld) 0.4 % Normal [facility] Comment on above: Performed By: #### P INR, 29653-6 #### [facility] ([id number]) [address] [place] [address] 98891 #### CBCA, BMP #### [facility] ([id number]) [address], [address] [place] [address] Eosinophils (Bld) [#/Vol] 0.0 10*3/uL Normal 0.0-0.4 [facility] Comment on above: Performed By: #### P INR, 05174-0 #### [facility] ([id number]) [address] [place] [address] 33[address] #### CBCA, BMP #### [facility] ([id number]) [address], [address] [place] [address] Eosinophils/100 WBC (Bld) 0.6 % Normal [facility] Comment on above: Performed By: #### P INR, 74194-8 #### [facility] ([id number]) [address] [place] [address] 72796 #### CBCA, BMP #### [facility] ([id number]) [address] [address], [address] [place] [address] Erythrocyte distribution width (RBC) [Ratio] 14.7 % Normal 11.5-15.0 [facility] Comment on above: Performed By: #### P INR, 66823-6 #### [facility] ([id number]) [address] [place] [address] 81014 #### CBCA, BMP #### [facility] ([id number]) [address] [facility] [facility] [address], [address] [place] [address] Hematocrit (Bld) [Volume fraction] 35.1 % Normal 35-47 [facility] Comment on above: Performed By: #### P INR, 56205-5 #### [facility] ([id number]) [address] [place] [address] 60518 #### CBCA, BMP #### [facility] ([id number]) [address] [facility] [facility], [address] [place] [address] Hemoglobin (Bld) [Mass/Vol] 11.7 g/dL Normal 11.7-15.5 [facility] Comment on above: Performed By: #### P INR, 63741-0 #### [facility] ([id number]) [address] [place] [address] 54481 #### CBCA, BMP #### [facility] ([id number]) [address] [facility], [address] [place] [address] Lymphocytes (Bld) [#/Vol] 1.1 10*3/uL Normal 1.0-3.5 [facility] Comment on above: Performed By: #### P INR, 87991-1 #### [facility] ([id number]) [address] [place] [address] 62895 #### CBCA, BMP #### [facility] ([id number]) [address], [address] [place] [address] Lymphocytes/100 WBC (Bld) 14.7 % Normal [facility] Comment on above: Performed By: #### P INR, 70903-6 #### [facility] ([id number]) [address] [place] [address] 59791 #### CBCA, BMP #### [facility] ([id number]) [address], [address] [place] [address] MCH (RBC) [Entitic mass] 32.5 pg Normal 27-34 [facility] Comment on above: Performed By: #### P INR, 24851-5 #### [facility] ([id number]) [address] [place] [address] 02611 #### CBCA, BMP #### [facility] ([id number]) [address], [address] [place] [address] MCHC (RBC) [Mass/Vol] 33.3 g/dL Normal 32-36 [facility] Comment on above: Performed By: #### P INR, 01018-7 #### [facility] ([id number]) [address] [place] [address] 16572 #### CBCA, BMP #### [facility] ([id number]) [address], [address] [place] [address] MCV (RBC) [Entitic vol] 98 fL Normal 80-100 [facility] Comment on above: Performed By: #### P INR, 07773-5 #### [facility] ([id number]) [address] [place] [address] 37321 #### CBCA, BMP #### [facility] ([id number]) [address], [address] [place] [address] Monocytes (Bld) [#/Vol] 1.1 10*3/uL High 0-0.9 [facility] Comment on above: Performed By: #### P INR, 93820-1 #### [facility] ([id number]) [address] [place] [address] 81843 #### CBCA, BMP #### [facility] ([id number]) [address], [address] [place] [address] Monocytes/100 WBC (Bld) 13.8 % Normal [facility] Comment on above: Performed By: #### P INR, 62541-7 #### [facility] ([id number]) [address] [place] [address] 71105 #### CBCA, BMP #### [facility] ([id number]) [address], [address] [place] [address] Neutrophils/100 WBC (Bld) 70.5 % Normal [facility] Comment on above: Performed By: #### P INR, 82973-0 #### [facility] ([id number]) [address] [place] [address] 84545 #### CBCA, BMP #### [facility] ([id number]) [address], [address] [place] [address] Platelet mean volume (Bld) [Entitic vol] 7.6 fL Normal 7-12 [facility] Comment on above: Performed By: #### P INR, 19497-9 #### [facility] ([id number]) [address] [place] [address] 26595 #### CBCA, BMP #### [facility] ([id number]) [address], [address] [place] [address] Platelets (Bld) [#/Vol] 321 10*3/uL Normal 150-450 [facility] Comment on above: Performed By: #### P INR, 95585-2 #### [facility] ([id number]) [address] [place] [address] 87699 #### CBCA, BMP #### [facility] ([id number]) [address] [facility] [address], [address] [place] [address] RBC COUNT 3.59 X10E12/L Low 3.80-5.20 [facility] Comment on above: Performed By: #### P INR, 62728-7 #### [facility] ([id number]) [address] [place] [address] 61066 #### CBCA, BMP #### [facility] ([id number]) [address] [place] [address], [address] [place] [address] WBC (Bld) [#/Vol] 7.8 10*3/uL Normal 4.0-11.0 [facility] Comment on above: Performed By: #### P INR, 34624-4 #### [facility] ([id number]) [address] [place] [address] 18317 #### CBCA, BMP #### [facility] ([id number]) [address] [place] [address], [address] [address] PROTIME AND INRon 10-27-2023 INR Coag (PPP) [Relative time] 1.1 {INR} Normal 0.8-1.1 [facility] Comment on above: Performed By: #### P INR, 66906-1 #### [facility] ([id number]) [address] [place] [address] 20991 #### CBCA, BMP #### [facility] ([id number]) [address] [place] [address], [address] [place] [address] PT Coag (PPP) [Time] 12.3 s Normal 9.8-13.2 [facility] Comment on above: Result Comment: NEW REFERENCE RANGE Performed By: #### P INR, 18530-9 #### [facility] ([id number]) [address] [place] [address] #### CBCA, BMP #### [facility] ([id number]) [address] [facility], [address] [place] [address] aPTT Coag (PPP) [Time]on aPTT Coag (Bld) [Time] 36 s Normal 26-37 [facility] Comment on above: Result Comment: NEW REFERENCE RANGE Performed By: #### P INR, 91007-1 #### [facility] ([id number]) [address] [place] [address] 22805 #### CBCA, BMP #### [facility] ([id number]) [address] [facility], [address] [place] [address] Lab Reportson 07-27-2023 Lab Reports [id number]#1.00TIFF Normal [facility] Lab Reports [id number]#1.00TIFF Normal [facility] Blood Urea Nitrogenon 2023 Urea nitrogen [Mass/Vol] 16 mg/dL Normal 7-25 [facility] Comment on above: Order Comment: STAT FOR CT Performed By: #### B UN, ANNE MARIE #### [address] abdomen pelvis w conon CT abdomen pelvis w [facility] [place] [address] [place] [address] CT Scan Report Signed Patient: Delicia Hsu MR#: [id number] 4 : 1935 Acct:[id number] Age/Sex: 87 / F ADM Date: 05/28/23 Loc: CT Room: Type: [facility] Attending Dr: Monie Wallace DO Copies to: [...] Yen Jr., D.O.05/28/2023 1:34 PM Dictation Location: [place] [address] Transcribed By: [facility] 05/28/23 1334 Dictated By: Jm Yen Jr, DO 05/28/23 1331 Signed By: 05/28/23 1334 Normal [facility] Creatinineon 05-28-2023 Creatinine [Mass/Vol] 1.07 mg/dL Normal 0.60-1.20 [facility] Comment on above: Order Comment: STAT FOR CT Performed By: #### B ANNE MARIE SHARMA #### [address] GFR/1.73 sq M.predicted MDRD (S/P/Bld) [Vol rate/Area] 50.587 mL/min/{1.73_m2} Normal [facility] Comment on above: Order Comment: STAT FOR CT Result Comment: PERF ORMED BY: [place] [address] PATHOLOGIST [employer] TIEN VELASQUEZ M.D. Performed By: #### B UN, CREAT #### [address] Creatinine [Mass/volume] in Serum or PlasmaOrdered By: Monie Wallace on 05-28-2023 Creatinine [Mass/Vol] 1.07 mg/dL 0.60-1.20 [facility] No Panel InformationOrdered By: Monie Wallace on 05-28-2023 Estimated GFR (CKD-EPI) 50.587 mL/Min [facility] Creatinine Clearance (Chem N/A [facility] Urea nitrogen [Mass/volume] in Serum or PlasmaOrdered By: Monie Wallace on 05-28-2023 Urea nitrogen [Mass/Vol] 16 mg/dL 7-25 [facility] No Panel InformationOrdered By: Gypsy Mcmahon on 05-25-2023 E coli Shiga Toxin EIA [facility] Salmonella/Shigella Screen [facility] IgA [Mass/volume] in Serum o r Plasmaon 05-24-2023 IgA [Mass/Vol] 64 mg/dL 64-422 [facility] Comment on above: Performed at: [place] [id number] Director: Salomon Mcarthur PhD, Phone: [phone] No Panel Informationon 05-23 Endomysial IgA Antibody Negative Negative [facility] Serum gliadin peptide IgA an tibody assay (units/volume)on 05-24-2023 Gliadin peptide IgA Qn (S) 4 units [facility] Comment on above: Negative 0 - 19 Weak Positive 20 - 30 Moderate to Strong Positive >30 Serum gliadin peptide IgG an tibody assay (units/volume)on 05-24-2023 Gliadin peptide IgG Qn (S) 2 units [facility] Comment on above: Negative 0 - 19 Weak Positive 20 - 30 Moderate to Strong Positive >30 Serum tissue transglutaminas e (tTG) IgA antibody assay (units/volume)on 05-24-2023 tTG IgA Qn (S) <2 U/mL 0-3 [facility] Comment on above: Negative 0 - 3 Weak Positive 4 - 10 Positive >10 Tissue Transglutaminase (tTG) has been identified as the endomysial antigen. Studies have demonstr- ated that endomysial IgA antibodies have over 99% specificity for gluten sensitive enteropathy. Serum tissue transglutaminas e (tTG) IgG antibody assay (units/volume)on 05-24-2023 tTG IgG Qn (S) <2 U/mL 0-5 [facility] Comment on above: Negative 0 - 5 Weak Positive 6 - 9 Positive >9 [facility] 05-10-2023 Lab Reports [id number]#1.00TIFF Normal [facility] Lab Reports [id number]#1.00TIFF Normal [facility] Reports [id number]#1.00TIFF Normal [facility] Automated urine specific gra vity by refractometryon 05-06-2023 Specific gravity Refractometry automated (U) [Rel density] 1.025 1.005-1.02 5 [facility] Bilirubin Auto test strip (U ) [Mass/Vol]on 05-06-2023 Bilirubin (U) [Mass/Vol] Negative NEGATIVE [facility] Color Auto (U)on 05-06-2023 Color (U) YELLOW YELLOW [facility] Ketones Auto test strip (U) [Mass/Vol]on 05-06-2023 Ketones (U) [Mass/Vol] Negative NEGATIVE [facility] Lab Reportson 05-06-2023 Lab Reports [id number]#1.00TIFF Normal [facility] - Microbiology an d Antimicrobial susceptibilityOrdered By: Gypsy Mcmahon on 05-06-2023 Bacteria identified Cx Nom (U) [facility] Protein Auto test strip (U) [Mass/Vol]on 05-06-2023 Protein (U) [Mass/Vol] Negative [facility] gravity Auto test s trip (U) [Rel density]on 05-06-2023 Specific gravity (U) [Rel density] CLEAR CLEAR [facility] Urine glucose measurement by test strip (mass/volume)on 05-06-2023 Glucose Test strip (U) [Mass/Vol] Negative NEGATIVE [facility] Urine hemoglobin detection b y automated test stripon 05-06-2023 Hemoglobin Auto test strip Ql (U) TRACE-I NEGATIVE [facility] Urine nitrite detection by a utomated test stripon 05-06-2023 Nitrite Auto test strip Ql (U) SMALL NEGATIVE [facility] Nitrite Auto test strip Ql (U) Positive NEGATIVE [facility] Urobilinogen Auto test strip (U) [Mass/Vol]on 05-06-2023 Urobilinogen Qn (U) 0.2 {Gen'U}/dL 0.2-1.0 [facility] pH Auto test strip (U)on pH (U) 5.5 [pH] 5.0-9.0 [facility] No Panel Informationon 04-30 Clostridium difficile (PCR)(LAB) Negative NEGATIVE [facility] No Panel Informationon 04-06 Clostridium difficile (PCR)(LAB) Positive Negative [facility] Comment on above: Toxigenic C difficil e: PositiveEpidemic Strain Bl/NAP1/027: Presumptive NegativePerformed at: [facility] Lab[address] [id number] Director: Salomon Mcarthur PhD, Phone: [phone] IntraOperative Documentson 0 02-12-2023 IntraOperative Documents [id number]#1.00TIFF Normal [facility] Physician Orderon 02-12-2023 Physician Order [id number]#1.00TIFF Normal [facility] Physician Order [id number]#1.00TIFF Normal [facility] ED Note-Physicianon 02-05-20 ED Note-Physician [id number]#1.00TIFF Normal [facility] Lab Reportson 02-04-2023 Lab Reports [id number]#1.00TIFF Normal [facility] Lab Reports [id number]#1.00TIFF Normal [facility] Lab Reports [id number]#1.00TIFF [facility] Consent for Treatmenton 01-09 Consent for Treatment [id number]#1.00TIFF [facility] Retail - Clinical Noteon Retail - Clinical Note [id number]#1.00TIFF [facility] Lab Reportson 01-28-2023 Lab Reports [id number]#1.00TIFF [facility] Physician Orderon 01-28-2023 Physician Order [id number]#1.00TIFF [facility] Urology Office/Clinic Noteon 01-27-2023 Urology Office/Clinic [...] Urnls Dip Stick Auto w/o Microscopy POC 77597 2. 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 he agrees w above plan. 3. [...] the risks of side effects etc. Orders: 12174 Measure Post Void residual urine and/or bladder capacity by US- non-imaging Total time spent reviewing previous notes/results/external documents, preparing the chart, conducting the encounter with the patient and family, ordering tests/medications, and documenting the encounter was 40 minutes. Follow-up With When Contact Information DEB ZAZUETA, MALATHI Olvera, URL [address] [place] [address] [phone] Additional Instructions: f/u in Spring Patient Education Urinary Tract Infection, Adult, Tfox-ve-Rdkn Documentation recorded by the scribe Caprice Stratton accurately reflects the services(s) I performed and decisions made by me. Authenticated by Malathi Vieira PA-C on 01/27/2023 13:56:47. I, Caprice Stratton, personally scribed for Malathi Vieira PA-C on (more content not included)... Normal [facility] Comment on above: Result Comment: Elec [...] Urnls Dip Stick Auto w/o Microscopy POC 14270 Your Care Team Attending Physician - MALATHI [...] ZAZUETA, MALATHI Olvera Where: [facility] [place] Normal [facility] Patient Educationon 01-27-20 Patient [...] these instructions at home: Medicines ? Take kvkh-lri-snhqzmy and prescription medicines only as told by [...] Reviewed: 09/06/2020 Elsevier Patient Education ? 2022 [employer] [facility] Lab Reportson 01-25-2023 Lab Reports [id number]#1.00TIFF [facility] Lab Reports [id number]#1.00TIFF [facility] Lab Reports [id number]#1.00TIFF [facility] Lab Reportson 12-03-2022 Lab Reports [id number]#1.00TIFF [facility] Physician Orderon 12-01-2022 Physician Order [id number]#1.00TIFF [facility] Lab Reportson 09-25-2022 Lab Reports [id number]#1.00CD:12 7 [facility] Lab Reports [id number]#1.00CD:12 7 [facility] Physician Orderon 09-23-2022 Physician Order [id number]#1.00CD:12 7 [facility] Screenson 09-23-2022 Screens [id number]#1.00CD:12 7 [facility] Ambulatory Visit Summaryon 0 09-22-2022 Ambulatory [...] ZAZUETA, MALATHI Olvera Where: [facility] Patient Educationon 09-23-19 Patient [...] these instructions at home: Medicines ? Take rzpz-jaj-opurstb and prescription medicines only as told by [...] provider. Document Revised: 09/06/2020 Document Reviewed: 09/06/2020 ElseIwebalize Patient Education ? [address] [employer] [facility] Urology Office/Clinic Noteon 09-22-2022 [...] symptoms not resolved. C&S this morning at [facility] ( not finalized) UTI symptoms Memory [...] resolved per daughter. C&S this morning at [facility] (not finalized) - will call pt [...] up having to send a U.Cx to [facility] so we can review the [...] When Contact Information MALATHI VIEIRA PA-C, URL [address] [place] [address] Additional Instructions: Patient Education Urinary Tract Infection, Adult, Tzex-rt-Ugmy I, Jazlyn Lucero, personally scribed for Malathi [...] 3 mg (more content not included)... Normal [facility] Comment on above: Result Comment: Elec tronically Signed By: MALATHI VIEIRA PA-C\.br\Date and Time Signed: 09/22/22 16:16 EDT\.br\Electronically Co-Signed By: Jazlyn Lucero\.br\Date and Time Co-Signed: 09/22/22 15:[address] ABD/PELVIS WO CONon 05-27 CT ABD/PELVIS [...] by: MI NUÑEZ Date: 2022-05-27 10:34 Normal [facility] CULTURE URINEon 05-14-2022 CULTURE URINE [...] Trimethoprim/Sulfamethoxa zole <=20 S F Normal [facility] Comment on above: Performed By: #### U RCX #### [facility] [address] [place] [address] Dr. Anthony Bonilla UA RANDOMon 05-11-2022 Bilirubin Ql (U) Negative Normal NEGATIVE [facility] Comment on above: Performed By: #### U RCX #### [facility] [address] [place] [address] Dr. Anthony Bonilla Clarity (U) SL CLOUDY Abnormal CLEAR [facility] Comment on above: Performed By: #### U RCX #### [facility] [address] [place] [address] Dr. Anthony Bonilla Color (U) LT. YELLOW Normal YELLOW [facility] Comment on above: Performed By: #### U RCX #### [facility] [address] [place] [address] Dr. Anthony Bonilla Glucose Ql (U) Negative Normal NEGATIVE [facility] Comment on above: Performed By: #### U RCX #### [facility] [address] [place] [address] Dr. Anthony Bonilla Hemoglobin Ql (U) Negative Normal NEGATIVE [facility] Comment on above: Performed By: #### U RCX #### [facility] [address] [place] [address] Dr. Anthony Bonilla Ketones Ql (U) Negative Normal NEGATIVE [facility] Comment on above: Performed By: #### U RCX #### [facility] [address] [place] [address] Dr. Anthony Bonilla LEUKOCYTES MODERATE Abnormal NEGATIVE [facility] Comment on above: Performed By: #### U RCX #### [facility] [address] [place] [address] Dr. Anthony Bonilla Nitrite Ql (U) Negative Normal NEGATIVE [facility] Comment on above: Performed By: #### U RCX #### [facility] [address] [place] [address] Dr. Anthony Bonilla pH (U) 5.5 [pH] Normal 5-9 [facility] Comment on above: Performed By: #### U RCX #### [facility] [address] [place] [address] Dr. Anthony Bonilla SPEC GRAVITY 1.020 Normal 1.005-<=1. 025 [facility] Comment on above: Performed By: #### U RCX #### [facility] [address] [place] [address] Dr. Anthony Bonilla UA PROTEIN Negative Normal NEGATIVE/ TRACE [facility] Comment on above: Performed By: #### U RCX #### [facility] [address] [place] [address] Dr. Anthony Bonilla Urobilinogen Qn (U) 0.2 {Gen'U}/dL Normal 0.2 - 1. 0 [facility] Comment on above: Performed By: #### U RCX #### [facility] [address] [place] [address] Dr. Anthony Bonilla CULTURE URINEon 05-01-2022 CULTURE [...] F Trimethoprim/Sulfamethoxa zole <=20 S F Normal [facility] Comment on above: Performed By: #### U RCX #### [facility] [address] [place] [address] Dr. Anthony Bonilla CULTURE URINEon 04-16-2022 CULTURE [...] R F Nitrofurantoin 64 I F Normal [facility] Comment on above: Performed By: #### U RCX #### [facility] [address] [place] [address] Dr. Anthony Bonilla UA RANDOMon 04-14-2022 Bilirubin Ql (U) Negative Normal NEGATIVE [facility] Comment on above: Performed By: #### U RCX #### [facility] [address] [place] [address] Dr. Anthony Bonilla Clarity (U) CLEAR Normal CLEAR [facility] Comment on above: Performed By: #### U RCX #### [facility] [address] [place] [address] Dr. Anthony Bonilla Color (U) LT. YELLOW Normal YELLOW [facility] Comment on above: Performed By: #### U RCX #### [facility] [address] [place] [address] Dr. Anthony Bonilla Glucose Ql (U) Negative Normal NEGATIVE [facility] Comment on above: Performed By: #### U RCX #### [facility] [address] [place] [address] Dr. Anthony Bonilla Hemoglobin Ql (U) Negative Normal NEGATIVE [facility] Comment on above: Performed By: #### U RCX #### [facility] [address] [place] [address] Dr. Anthony Bonilla Ketones Ql (U) Negative Normal NEGATIVE [facility] Comment on above: Performed By: #### U RCX #### [facility] [address] [place] [address] Dr. Anthony Bonilla LEUKOCYTES MODERATE Abnormal NEGATIVE [facility] Comment on above: Performed By: #### U RCX #### [facility] [address] [place] [address] Dr. Anthony Bonilla Nitrite Ql (U) Negative Normal NEGATIVE [facility] Comment on above: Performed By: #### U RCX #### [facility] [address] [place] [address] Dr. Anthony Bonilla pH (U) 5.5 [pH] Normal 5-9 [facility] Comment on above: Performed By: #### U RCX #### [facility] [address] [place] [address] Dr. Anthony Bonilla SPEC GRAVITY 1.020 Normal 1.005-<=1. 025 [facility] Comment on above: Performed By: #### U RCX #### [facility] [address] [place] [address] Dr. Anthony Bonilla UA PROTEIN Negative Normal NEGATIVE/ TRACE [facility] Comment on above: Performed By: #### U RCX #### [facility] [address] [place] [address] Dr. Anthony Bonilla Urobilinogen Qn (U) 0.2 {Gen'U}/dL Normal 0.2 - 1. 0 [facility] Comment on above: Performed By: #### U RCX #### [facility] [address] [place] [address] Dr. Anthony Bonilla Urinalysis - DIPSTICKon 03-12 Appearance (U) clear [employer] Other Bilirubin Ql (U) small [employer] Other Color (U) dark yellow [employer] Other Glucose Ql (U) Negative [employer] Other Hemoglobin Ql (U) Negative [employer] Other Ketones Ql (U) trace [employer] Other Leukocyte esterase Test strip Ql (U) small [employer] Other Nitrite Ql (U) Negative [employer] Other pH (U) 5.0 [pH] [employer] Other Protein Ql (U) Negative [employer] Other Specific gravity (U) [Rel density] 1.015 [employer] Other Urobilinogen (U) [Mass/Vol] 0.2 mg/dL [employer] Other Urinalysis - DIPSTICK [employer] Other Urine Cultureon 03-30-2022 Urine Culture 10,000 [employer] Other Bacteria identified Cx Nom (U) [employer] Other CULTURE URINEon 03-23-2022 CULTURE URINE Isolate 1 Pseudomonas aeruginosa >100,000 cfu/mL of ORGANISM 1 Pseudomonas aeruginosa ANTIBIOTIC M.I.C RX STATUS Piperacillin/Tazobactam 8 S F Ceftazidime 4 S F Imipenem 1 S F Amikacin <=2 S F Gentamicin <=1 S F Tobramycin <=1 S F Ciprofloxacin <=0.25 S F Levofloxacin 0.5 S F Normal [facility] Comment on above: Performed By: #### U RCX #### [facility] [address] [place] [address] Dr. Anthony Bonilla CARDIAC DARWIN ADMITon 023 CK [Catalytic activity/Vol] 137 U/L Normal 26-192 [facility] Comment on above: Performed By: #### U RCX #### [facility] [address] [place] [address] Dr. Anthony Bonilla CK.MB [Mass/Vol] 1.05 ng/mL Normal <=3.60 [facility] Comment on above: Performed By: #### U RCX #### [facility] [address] [place] [address] Dr. Anthony Bonilla HSTROP 17.6 pg/mL Normal 4.0-51.3 [facility] Comment on above: Result Comment: CUT- OFF POINTS HAVE BEEN ESTABLISHED BASED ON THE FOURTH UNIVERSAL DEFINITIONS OF MYOCARDIAL INFARCTION. THE UPPER REFERENCE LIMIT (URL) OF TROPONIN, DEFINED THE 99TH PERCENTILE OF cTnI DISTRIBUTION IN A REFERENCE POPULATION, HAS BEEN CONFIRMED THE DECISION THRESHOLD FOR DC DIAGNOSIS. Performed By: #### U RCX #### [facility] [address] [place] [address] Dr. Anthony Bonilla CANDIDA 72 ng/mL Normal 9-82 [facility] Comment on above: Performed By: #### U RCX #### [facility] [address] [place] [address] Dr. Anthony Bonilla CBC AUTO DIFFon 03-20-2022 BASO # 0.0 103/ul Normal 0.0-0.1 [facility] Comment on above: Performed By: #### C BC #### [facility] [address] [place] [address] Dr. Anthony Bonilla Basophils/100 WBC (Bld) 0.3 % Normal 0.2-2.0 [facility] Comment on above: Performed By: #### C BC #### [facility] [address] [place] [address] Dr. Anthony Bonilla EO # 0.0 103/ul Normal 0.0-0.7 [facility] Comment on above: Performed By: #### C BC #### [facility] [address] [place] [address] Dr. Anthony Bonilla Eosinophils/100 WBC (Bld) 0.1 % Critically low 0.9-7.0 [facility] Comment on above: Performed By: #### C BC #### [facility] [address] [place] [address] Dr. Anthony Bonilla Erythrocyte distribution width (RBC) [Ratio] 15.9 % Critically high 11.0-15.0 [facility] Comment on above: Performed By: #### C BC #### [facility] [address] [place] [address] Dr. Anthony Bonilla Hematocrit (Bld) [Volume fraction] 33.6 % Critically low 36.0-48.0 [facility] Comment on above: Performed By: #### C BC #### [facility] [address] [place] [address] Dr. Anthony Bonilla Hemoglobin (Bld) [Mass/Vol] 11.2 g/dL Critically low 12.0-16.0 [facility] Comment on above: Performed By: #### C BC #### [facility] [address] [place] [address] Dr. Anthony Bonilla IG # 0.04 10e3/ul Critically high 0.00-0.[address] [facility] Comment on above: Performed By: #### C BC #### [facility] [address] [place] [address] Dr. Anthony Bonilla IG % 0.3 % Normal 0.0-0.5 [facility] Comment on above: Performed By: #### C BC #### [facility] [address] [place] [address] Dr. Anthony Bonilla LYMPH # 0.8 103/ul Critically low 1.2-3.8 [facility] Comment on above: Performed By: #### C BC #### [facility] [address] [place] [address] Dr. Anthony Bonilla Lymphocytes/100 WBC (Bld) 6.4 % Critically low 20.5-60.0 [facility] Comment on above: Performed By: #### C BC #### [facility] [address] [place] [address] Dr. Anthony Bonilla MANUAL DIFF REQ NO Normal [facility] Comment on above: Performed By: #### C BC #### [facility] [address] [place] [address] Dr. Anthony Bonilla MCH (RBC) [Entitic mass] 28.9 pg Normal 26.7-34.0 [facility] Comment on above: Performed By: #### C BC #### [facility] [address] [address] [address] Anthony Bonilla MCHC (RBC) [Mass/Vol] 33.3 g/dL Normal 29.9-35.2 [facility] Comment on above: Performed By: #### C BC #### [facility] [address] [address] [address] Anthony Bonilla MCV (RBC) [Entitic vol] 86.8 fL Normal 81.0-99.0 [facility] Comment on above: Performed By: #### C BC #### [facility] [address] [address] [address] Anthony Bonilla MONO # 1.1 103/ul Critically high 0.3-0.8 [facility] Comment on above: Performed By: #### C BC #### [facility] [address] [address] [address] Anthony Bonilla Monocytes/100 WBC (Bld) 8.3 % Normal 1.7-12.0 [facility] Comment on above: Performed By: #### C BC #### [facility] [address] [place] [address] Dr. Anthony Bonilla NEUT # 11.2 103/ul Critically high 1.4-6.5 [facility] Comment on above: Performed By: #### C BC #### [facility] [address] [address] [address] Anthony Bonilla Neutrophils/100 WBC (Bld) 84.6 % Critically high 43.0-75.0 [facility] Comment on above: Performed By: #### C BC #### [facility] [address] [address] [address] Anthony Bonilla Platelet mean volume (Bld) [Entitic vol] 9.7 fL Normal 9.5-13.5 [facility] Comment on above: Performed By: #### C BC #### [facility] [address] [address] [address] Anthony Bonilla PLT 274 103/ul Normal 150-450 [facility] Comment on above: Performed By: #### C BC #### [facility] [address] [place], [place] [address] Dr. Anthony Bonilla RBC 3.87 106/ul Critically low 4.20-5.40 [facility] Comment on above: Performed By: #### C BC #### [facility] [address] [place], [place] [address] Dr. Anthony Bonilla WBC 13.2 103/ul Critically high 4.0-11.0 [facility] Comment on above: Performed By: #### C BC #### [facility] [address] [place], [place] [address] HEAD WO CONon [...] CLAU SHAH Date: 2022-03-20 20:30 Normal [facility] ER URINE PROFILEon 3 Bilirubin Ql (U) Negative Normal NEGATIVE [facility] Comment on above: Performed By: #### C BC #### [facility] [address] [place] [address] Dr. Anthony Bonilla Clarity (U) CLEAR Normal CLEAR [facility] Comment on above: Performed By: #### C BC #### [facility] [address] [address] [address] Anthony Bonilal Color (U) LT. YELLOW Normal YELLOW [facility] Comment on above: Performed By: #### C BC #### [facility] [address] [address] [address] Anthony Bonilla ERUCARMINA A micrscopic examina tion will be performed if indicated. Normal [facility] Comment on above: Performed By: #### C BC #### [facility] [address] [place] [address] Dr. Anthony Bonilla Glucose Ql (U) Negative Normal NEGATIVE [facility] Comment on above: Performed By: #### C BC #### [facility] [facility] [address] [place] [address] Dr. Anthony Bonilla Hemoglobin Ql (U) LARGE Abnormal NEGATIVE The [facility] Comment on above: Performed By: #### C BC #### [facility] [address] [place] [address] Dr. Anthony Bonilla Ketones Ql (U) Negative Normal NEGATIVE The [facility] Comment on above: Performed By: #### C BC #### [facility] [address] [address] [address] Anthony Bonilla LEUKOCYTES SMALL Abnormal NEGATIVE [facility] Comment on above: Performed By: #### C BC #### [facility] [address] [place] [address] Dr. Anthony Bonilla Nitrite Ql (U) Positive Abnormal NEGATIVE The [facility] Comment on above: Performed By: #### C BC #### [facility] [address] [place] [address] Dr. Anthony Bonilla pH (U) 7.0 [pH] Normal 5-9 The [facility] Comment on above: Performed By: #### C BC #### [facility] [address] [place] [address] Dr. Anthony Bonilla Protein (U) [Mass/Vol] 30 mg/dL Abnormal NEGAT JAMAR/ TRACE [facility] Comment on above: Performed By: #### C BC #### [facility] [address] [place] [address] Dr. Anthony Bonilla SPEC GRAVITY 1.015 Normal 1.005-<=1. 025 [facility] Comment on above: Performed By: #### C BC #### [facility] [address] [place] [address] Dr. Anthony Bonilla UR MICRO IND INDICATED Normal [facility] Comment on above: Performed By: #### C BC #### [facility] [address] [place] [address] Dr. Anthony Bonilla Urobilinogen Qn (U) 1.0 {Gen'U}/dL Normal 0.2 - 1. 0 [facility] Comment on above: Performed By: #### C BC #### [facility] [address] [place] [address] Dr. Anthony Bonilla PROF 14(COMP METB)on 023 Albumin [Mass/Vol] 3.4 g/dL Normal 3.4-5.0 [facility] Comment on above: Performed By: #### U RCX #### [facility] [address] [place] [address] Dr. Anthony Bonilla Albumin/Globulin [Mass ratio] 1.2 {ratio} Normal [facility] Comment on above: Performed By: #### U RCX #### [facility] [address] [place] [address] Dr. Anthony Bonilla ALP [Catalytic activity/Vol] 26 U/L Critically low 46-116 [facility] Comment on above: Performed By: #### U RCX #### [facility] [address] [place] [address] Dr. Anthony Bonilla ALT [Catalytic activity/Vol] 21 U/L Normal 14-59 [facility] Comment on above: Performed By: #### U RCX #### [facility] [address] [address] [address] Anthony Bonilla Anion gap [Moles/Vol] 13.7 mmol/L Normal [facility] Comment on above: Performed By: #### U RCX #### [facility] [address] [address] [address] Anthony Bonilla AST [Catalytic activity/Vol] 20 U/L Normal 15-37 [facility] Comment on above: Performed By: #### U RCX #### [facility] [address] [address] [address] Anthony Bonilla Bilirubin [Mass/Vol] 1.2 mg/dL Critically high 0.2-1.0 [facility] Comment on above: Performed By: #### U RCX #### [facility] [address] [place] [address] Dr. Anthony Bonilla Calcium [Mass/Vol] 9.4 mg/dL Normal 8.5-10.1 [facility] Comment on above: Performed By: #### U RCX #### [facility] [address] [address] [address] Anthony Bonilla Chloride [Moles/Vol] 99 mmol/L Normal 98-107 [facility] Comment on above: Performed By: #### U RCX #### [facility] [address] [address] [address] Anthony Bonilla CO2 [Moles/Vol] 29.1 mmol/L Normal 21.0-32.0 [facility] Comment on above: Performed By: #### U RCX #### [facility] [address] [address] [address] Anthony Bonilla Creatinine [Mass/Vol] 1.02 mg/dL Normal 0.55-1.02 [facility] Comment on above: Performed By: #### U RCX #### [facility] [address] [address] [address] Anthony Bonilla EGFR-AF BAHAMIAN >60 Normal >=60 The [facility] Comment on above: Performed By: #### U RCX #### [facility] [address] [address] [address] Anthony Bonilla EGFR-NON AF BAHAMIAN 52 mL/min/1.73m2 Critically low >=60 [facility] Comment on above: Performed By: #### U RCX #### [facility] [address] [address] [address] Anthony Bonilla Globulin (S) [Mass/Vol] 2.9 g/dL Normal [facility] Comment on above: Performed By: #### U RCX #### [facility] [address] [address] [address] Anthony Bonilla Glucose [Mass/Vol] 98 mg/dL Normal 74-106 [facility] Comment on above: Performed By: #### U RCX #### [facility] [address] [address] [address] Anthony Bonilla Potassium [Moles/Vol] 3.8 mmol/L Normal 3.5-5.1 [facility] Comment on above: Performed By: #### U RCX #### [facility] [address] [address] [address] Anthony Bonilla Protein [Mass/Vol] 6.3 g/dL Critically low 6.4-8.2 [facility] Comment on above: Performed By: #### U RCX #### [facility] [address] [address] [address] Anthony Bonilla Sodium [Moles/Vol] 138 mmol/L Normal 136-145 [facility] Comment on above: Performed By: #### U RCX #### [facility] [address] [address] [address] Anthony Bonilla Urea nitrogen [Mass/Vol] 16.0 mg/dL Normal 7.0-18.0 [facility] Comment on above: Performed By: #### U RCX #### [facility] [address] [address] [address] Anthony Bonilla Urea nitrogen/Creatinine [Mass ratio] 15.7 mg/mg Normal [facility] Comment on above: Performed By: #### U RCX #### [facility] [address] [place] [address] Dr. Anthony Bonilla URINE MICROSCOPIC ONLYon BACTERIA LARGE Abnormal NONE SEEN The [facility] Comment on above: Performed By: #### C BC #### [facility] [address] [place] [address] Dr. Anthony Bonilla Bacteria identified Cx Nom (U) INDICATED Normal The [facility] Comment on above: Performed By: #### C BC #### [facility] [address] [place] [address] Dr. Anthony Bonilla CAST NONE SEEN Normal NONE SEEN The [facility] Comment on above: Performed By: #### C BC #### [facility] [address] [place] [address] Dr. Anthony Bonilla Crystals LM Nom (Urine sed) NONE SEEN Normal NONE SEEN The [facility] Comment on above: Performed By: #### C BC #### [facility] [address] [place] [address] Dr. Anthony Bonilla Epithelial cells LM Ql (Urine sed) FEW Abnormal NONE SEEN /RARE The [facility] Comment on above: Performed By: #### C BC #### [facility] [address] [place] [address] Dr. Anthony Bonilla MUCOUS NONE SEEN Normal NONE SEEN The [facility] Comment on above: Performed By: #### C BC #### [facility] [address] [place] [address] Dr. Anthony Bonilla RBC 10-20 Abnormal 0-2 The [facility] Comment on above: Performed By: #### C BC #### [facility] [address] [place] [address] Dr. Anthony Bonilla WBC 50-75 Abnormal NONE SEEN The [facility] Comment on above: Performed By: #### C BC #### [facility] [address] [place] [address] Dr. Anthony Bonilla CALPROTECTIN, FECALon 2022 Calprotectin, Fecal 416 ug/g Critically high 0-120 The [facility] Comment on above: Result Comment: Conc entration Interpretation Follow-Up <16 - 50 ug/g Normal None >50 -120 ug/g Borderline Re-evaluate in 4-6 weeks >120 ug/g Abnormal Repeat as clinically indicated Performed By: #### U RCX #### [facility] [address] [place] [address] Dr. Anthony Bonilla QUANTIFERON TB GOLD PLUSon 0 02-19-2022 QuantiFERON Criteria Comment Normal [facility] Comment on [...] test. Performed By: #### U RCX #### [facility] [address] [place] [address] Dr. Anthony Bonilla QuantiFERON Incubation Incubation performed. Normal [facility] Comment on above: Performed By: #### U RCX #### [facility] [address] [place] [address] Dr. Anthony Bonilla QuantiFERON Mitogen Value >10.00 Normal [facility] Comment on above: Performed By: #### U RCX #### [facility] [address] [place] [address] Dr. Anthony Bonilla QuantiFERON Nil Value 0.07 IU/mL Normal [facility] Comment on above: Performed By: #### U RCX #### [facility] [address] [place] [address] Dr. Anthony Bonilla QuantiFERON TB1 Ag Value 0.08 IU/mL Normal [facility] Comment on above: Performed By: #### U RCX #### [facility] [address] [place] [address] Dr. Anthony Bonilla QuantiFERON TB2 Ag Value 0.07 IU/mL Normal [facility] Comment on above: Performed By: #### U RCX #### [facility] [address] [place] [address] Dr. Anthony Bonilla QuantiFERON-TB Gold Plus Negative Normal Negative [facility] Comment on above: Result Comment: No r esponse to M tuberculosis antigens detected. Infection with M tuberculosis is unlikely, but high risk individuals should be considered for additional testing (ATS/IDSA/CDC Clinical Practice Guidelines, 2017). The reference range is an Antigen minus Nil result of <0.35 IU/mL. Chemiluminescence immunoassay methodology Performed By: #### U RCX #### [facility] [address] [place] [address] Dr. Anthony Bonilla HEP B SURFACE ANTIGEN SCREEN on 02-18-2022 HBsAg Screen Negative Normal Negative [facility] Comment on above: Performed By: #### U RCX #### [facility] [address] [place] [address] Dr. Anthony Bonilla HEPATITIS B CORE, IgMon 02-08 Hep B Core Ab, IgM Negative Normal Negative [facility] Comment on above: Performed By: #### U RCX #### [facility] [address] [place] [address] Dr. Anthony Bonilla HEPATITIS B SURFACE ANTIBODY , QUANTon 02-18-2022 Hepatitis B Surf AB Quant <3.1 Critically low Immunity>9 .9 [facility] Comment on above: Result Comment: Stat us of Immunity Anti-HBs Level Inconsistent with Immunity 0.0 - 9.9 Consistent with Immunity >9.9 Performed By: #### C BC #### [facility] [address] [place] [address] Dr. Anthony Bonilla CBC AUTO DIFFon 02-17-2022 BASO # 0.0 103/ul Normal 0.0-0.1 [facility] Comment on above: Performed By: #### U RCX #### [facility] [address] [place] [address] Dr. Anthony Bonilla Basophils/100 WBC (Bld) 0.4 % Normal 0.2-2.0 [facility] Comment on above: Performed By: #### U RCX #### [facility] [address] [place] [address] Dr. Anthony Bonilla EO # 0.0 103/ul Normal 0.0-0.7 [facility] Comment on above: Performed By: #### U RCX #### [facility] [address] [place] [address] Dr. Anthony Bonilla Eosinophils/100 WBC (Bld) 0.5 % Critically low 0.9-7.0 [facility] Comment on above: Performed By: #### U RCX #### [facility] [address] [place] [address] Dr. Anthony Bonilla Erythrocyte distribution width (RBC) [Ratio] 14.7 % Normal 11.0-15.0 [facility] Comment on above: Performed By: #### U RCX #### [facility] [address] [place] [address] Dr. Anthony Bonilla Hematocrit (Bld) [Volume fraction] 33.2 % Critically low 36.0-48.0 [facility] Comment on above: Performed By: #### U RCX #### [facility] [address] [place] [address] Dr. Anthony Bonilla Hemoglobin (Bld) [Mass/Vol] 11.0 g/dL Critically low 12.0-16.0 [facility] Comment on above: Performed By: #### U RCX #### [facility] [address] [place] [address] Dr. Anthony Bonilla IG # 0.02 10e3/ul Normal 0.00-0.03 The [facility] Comment on above: Performed By: #### U RCX #### [facility] [address] [place] [address] Dr. Anthony Bonilla IG % 0.2 % Normal 0.0-0.5 The [facility] Comment on above: Performed By: #### U RCX #### [facility] [address] [place] [address] Dr. Anthony Bonilla LYMPH # 1.3 103/ul Normal 1.2-3.8 The [facility] Comment on above: Performed By: #### U RCX #### [facility] [address] [place] [address] Dr. Anthony Bonilla Lymphocytes/100 WBC (Bld) 14.8 % Critically low 20.5-60.0 [facility] Comment on above: Performed By: #### U RCX #### [facility] [address] [place] [address] Dr. Anthony Bonilla MANUAL DIFF REQ NO Normal [facility] Comment on above: Performed By: #### U RCX #### [facility] [address] [place] [address] Dr. Anthony Bonilla MCH (RBC) [Entitic mass] 29.0 pg Normal 26.7-34.0 [facility] Comment on above: Performed By: #### U RCX #### [facility] [address] [place] [address] Dr. Anthony Bonilla MCHC (RBC) [Mass/Vol] 33.1 g/dL Normal 29.9-35.2 [facility] Comment on above: Performed By: #### U RCX #### [facility] [address] [place] [address] Dr. Anthony Bonilla MCV (RBC) [Entitic vol] 87.6 fL Normal 81.0-99.0 [facility] Comment on above: Performed By: #### U RCX #### [facility] [address] [place] [address] Dr. Anthony Bonilla MONO # 0.8 103/ul Normal 0.3-0.8 [facility] Comment on above: Performed By: #### U RCX #### [facility] [address] [place] [address] Dr. Anthony Bonilla Monocytes/100 WBC (Bld) 9.6 % Normal 1.7-12.0 [facility] Comment on above: Performed By: #### U RCX #### [facility] [address] [place] [address] Dr. Anthony Bonilla NEUT # 6.3 103/ul Normal 1.4-6.5 [facility] Comment on above: Performed By: #### U RCX #### [facility] [address] [place] [address] Dr. Anthony Bonilla Neutrophils/100 WBC (Bld) 74.5 % Normal 43.0-75.0 [facility] Comment on above: Performed By: #### U RCX #### [facility] [address] [place] [address] Dr. Anthony Bonilla Platelet mean volume (Bld) [Entitic vol] 9.8 fL Normal 9.5-13.5 [facility] Comment on above: Performed By: #### U RCX #### [facility] [address] [place] [address] Dr. Anthony Bonilla PLT 318 103/ul Normal 150-450 The [facility] Comment on above: Performed By: #### U RCX #### [facility] [address] [place] [address] Dr. Anthony Bonilla RBC 3.79 106/ul Critically low 4.20-5.40 The [facility] Comment on above: Performed By: #### U RCX #### [facility] [address] [place] [address] Dr. Anthony Bonilla WBC 8.5 103/ul Normal 4.0-11.0 The [facility] Comment on above: Performed By: #### U RCX #### [facility] [address] [place] [address] Dr. Anthony Bonilla PROF 14(COMP METB)on 023 Albumin [Mass/Vol] 3.6 g/dL Normal 3.4-5.0 [facility] Comment on above: Performed By: #### U RCX #### [facility] [address] [place] [address] Dr. Anthony Bonilla Albumin/Globulin [Mass ratio] 1.2 {ratio} Normal [facility] Comment on above: Performed By: #### U RCX #### [facility] [address] [place] [address] Dr. Anthony Bonilla ALP [Catalytic activity/Vol] 27 U/L Critically low 46-116 [facility] Comment on above: Performed By: #### U RCX #### [facility] [address] [place] [address] Dr. Anthony Bonilla ALT [Catalytic activity/Vol] 21 U/L Normal 14-59 [facility] Comment on above: Performed By: #### U RCX #### [facility] [address] [place] [address] Dr. Anthony Bonilla Anion gap [Moles/Vol] 13.5 mmol/L Normal Th e [facility] Comment on above: Performed By: #### U RCX #### [facility] [address] [address] [address] Anthony Bonilla AST [Catalytic activity/Vol] 19 U/L Normal 15-37 [facility] Comment on above: Performed By: #### U RCX #### [facility] [address] [place] [address] Dr. Anthony Bonilla Bilirubin [Mass/Vol] 0.6 mg/dL Normal 0.2-1.0 [facility] Comment on above: Performed By: #### U RCX #### [facility] [address] [place] [address] Dr. Anthony Bonilla Calcium [Mass/Vol] 9.2 mg/dL Normal 8.5-10.1 [facility] Comment on above: Performed By: #### U RCX #### [facility] [address] [place] [address] Dr. Anthony Bonilla Chloride [Moles/Vol] 104 mmol/L Normal 98-107 [facility] Comment on above: Performed By: #### U RCX #### [facility] [address] [place] [address] Dr. Anthony Bonilla CO2 [Moles/Vol] 28.9 mmol/L Normal 21.0-32.0 [facility] Comment on above: Performed By: #### U RCX #### [facility] [address] [place] [address] Dr. Anthony Bonilla Creatinine [Mass/Vol] 1.21 mg/dL Critically high 0.55-1.02 [facility] Comment on above: Performed By: #### U RCX #### [facility] [address] [place] [address] Dr. Anthony Bonilla EGFR-AF BAHAMIAN 51 mL/min/1.73m2 Critically low >=60 [facility] Comment on above: Performed By: #### U RCX #### [facility] [address] [address] [address] Anthony Bonilla EGFR-NON AF BAHAMIAN 42 mL/min/1.73m2 Critically low >=60 [facility] Comment on above: Performed By: #### U RCX #### [facility] [address] [address] [address] Anthony Bonilla Globulin (S) [Mass/Vol] 3.1 g/dL Normal [facility] Comment on above: Performed By: #### U RCX #### [facility] [address] [place] [address] Dr. Anthony Bonilla Glucose [Mass/Vol] 107 mg/dL Critically high 74-106 [facility] Comment on above: Performed By: #### U RCX #### [facility] [address] [place] [address] Dr. Anthony Bonilla Potassium [Moles/Vol] 3.4 mmol/L Critically low 3.5-5.1 [facility] Comment on above: Performed By: #### U RCX #### [facility] [address] [place] [address] Dr. Anthony Bonilla Protein [Mass/Vol] 6.7 g/dL Normal 6.4-8.2 [facility] Comment on above: Performed By: #### U RCX #### [facility] [address] [place] [address] Dr. Anthony Bonilla Sodium [Moles/Vol] 143 mmol/L Normal 136-145 [facility] Comment on above: Performed By: #### U RCX #### [facility] [address] [address] [address] Anthony Bonilla Urea nitrogen [Mass/Vol] 22.0 mg/dL Critically high 7.0-18.0 [facility] Comment on above: Performed By: #### U RCX #### [facility] [address] [place] [address] Dr. Anthony Bonilla Urea nitrogen/Creatinine [Mass ratio] 18.2 mg/mg Normal [facility] Comment on above: Performed By: #### U RCX #### [facility] Laboratory [address] [address] [address] Anthony Bonilla Automated erythrocytes count in urine sediment (number/area)Ordered By: Gypsy Mcmahon on 02-16-2022 RBC Auto (Urine sed) [#/Area] 0-1 [HPF] 0-4 [facility] Automated leukocytes count i n urine sediment (number/area)Ordered By: Gypsy Mcmahon on 02-16-2022 WBC Auto (Urine sed) [#/Area] 20-49 [HPF] 0-4 [facility] Bilirubin Test strip Ql (U)O rdered By: Gypsy Mcmahon on 02-16-2022 Bilirubin Ql (U) Negative Negative [facility] Color Auto (U)Ordered By: Nicole Mcmahon on 02-16-2022 Color (U) Yellow Yellow [facility] Ketones Auto test strip (U) [Mass/Vol]Ordered By: Gypsy Mcmahon on 02-16-2022 Ketones (U) [Mass/Vol] Trace Negative [facility] Laboratory - UrinalysisOrder ed By: Gypsy Mcmahon on 02-16-2022 Hyaline casts LM Ql (Urine sed) 9-19 [LPF] 0-8 [facility] Nitrite Test strip Ql (U)Ord ered By: Gypsy Mcmahon on 02-16-2022 Nitrite Ql (U) Positive Negative [facility] Protein Auto test strip (U) [Mass/Vol]Ordered By: Gypsy Mcmahon on 02-16-2022 Protein (U) [Mass/Vol] Negative Negative [facility] Specific gravity Auto test s trip (U) [Rel density]Ordered By: Gypsy Mcmahon on 02-16-2022 Specific gravity (U) [Rel density] 1.018 1.001-1.03 0 [facility] Squamous epithelial cells de tection in urine sediment by light microscopyOrdered By: Gypsy Mcmahon on 02-16-2022 Epithelial cells.squamous LM Ql (Urine sed) 5-9 [HPF] 0-2 [facility] Urine Cultureon 02-16-2022 Urine Culture >100,000 [employer] Other Urine Culture <16 Susceptible [employer] Other Urine Culture <8/4 Susceptible [employer] Other Urine Culture <4 Susceptible [employer] Other Urine Culture <2 Susceptible [employer] Other Urine Culture <1 Susceptible [employer] Other Urine Culture <0.25 Susceptible [employer] Other Urine Culture <0.5 Susceptible [employer] Other Urine Culture <32 Susceptible [employer] Other Urine Culture <0.5/9.5 Susceptible [employer] Other Urine bacteria detection by automated methodOrdered By: Gypsy Mcmahon on 02-16-2022 Bacteria Auto Ql (U) 2+ None Seen [facility] Urine clarity by refractomet ry automatedOrdered By: Gypsy Mcmahon on 02-16-2022 Clarity Refractometry automated (U) Cloudy Clear [facility] Urine culture routineOrdered By: Gypsy Mcmahon on 02-16-2022 Bacteria identified Cx Nom (U) Klebsiella variicola [facility] Urine glucose measurement by automated test strip (mass/volume)Ordered By: Gypsy Mcmahon on 02-16-2022 Glucose Auto test strip (U) [Mass/Vol] Normal mg/dL Normal [facility] Urine hemoglobin detection b y automated test stripOrdered By: Gypsy Mcmahon on 02-16-2022 Hemoglobin Auto test strip Ql (U) Negative Negative [facility] Urine leukocyte esterase det ection by automated test stripOrdered By: Gypsy Mcmahon on 02-16-2022 Leukocyte esterase Auto test strip Ql (U) 2+ Negative [facility] Urobilinogen Auto test strip (U) [Mass/Vol]Ordered By: Gypsy Mcmahon on 02-16-2022 Urobilinogen (U) [Mass/Vol] Normal mg/dL Normal [facility] pH Auto test strip (U)Ordere d By: Gypsy Mcmahon on 02-16-2022 pH (U) 5.5 [pH] 5.0-9.0 [facility] CBC AUTO DIFFon 01-15-2022 BASO # 0.0 103/ul Normal 0.0-0.1 [facility] Comment on above: Performed By: #### C BC #### [facility] [address] [address] [address] Anthony Bonilla Basophils/100 WBC (Bld) 0.5 % Normal 0.2-2.0 [facility] Comment on above: Performed By: #### C BC #### [facility] [address] [address] [address] Anthony Bonilal EO # 0.1 103/ul Normal 0.0-0.7 [facility] Comment on above: Performed By: #### C BC #### [facility] [address] [address] [address] Anthony Bonilla Eosinophils/100 WBC (Bld) 0.9 % Normal 0.9-7.0 [facility] Comment on above: Performed By: #### C BC #### [facility] [address] [address] [address] Anthony Bonilla Erythrocyte distribution width (RBC) [Ratio] 14.8 % Normal 11.0-15.0 [facility] Comment on above: Performed By: #### C BC #### [facility] [address] [address] [address] Anthony Bonilla Hematocrit (Bld) [Volume fraction] 30.3 % Critically low 36.0-48.0 [facility] Comment on above: Performed By: #### C BC #### [facility] [address] [address] [address] Anthony Bonilla Hemoglobin (Bld) [Mass/Vol] 9.8 g/dL Critically low 12.0-16.0 [facility] Comment on above: Performed By: #### C BC #### [facility] [address] [address] [address] Anthony Bonilla IG # 0.03 10e3/ul Normal 0.00-0.03 [facility] Comment on above: Performed By: #### C BC #### [facility] [address] [place] [address] Dr. Anthony Bonilla IG % 0.3 % Normal 0.0-0.5 [facility] Comment on above: Performed By: #### C BC #### [facility] [address] [place] [address] Dr. Anthony Bonilla LYMPH # 1.4 103/ul Normal 1.2-3.8 [facility] Comment on above: Performed By: #### C BC #### [facility] [address] [place] [address] Dr. Anthony Bonilla Lymphocytes/100 WBC (Bld) 15.7 % Critically low 20.5-60.0 [facility] Comment on above: Performed By: #### C BC #### [facility] [address] [place] [address] Dr. Anthony Bonilla MANUAL DIFF REQ NO Normal [facility] Comment on above: Performed By: #### C BC #### [facility] [address] [place] [address] Dr. Anthony Bonilla MCH (RBC) [Entitic mass] 30.0 pg Normal 26.7-34.0 [facility] Comment on above: Performed By: #### C BC #### [facility] [address] [place] [address] Dr. Anthony Bonilla MCHC (RBC) [Mass/Vol] 32.3 g/dL Normal 29.9-35.2 [facility] Comment on above: Performed By: #### C BC #### [facility] [address] [place] [address] Dr. Anthony Bonilla MCV (RBC) [Entitic vol] 92.7 fL Normal 81.0-99.0 [facility] Comment on above: Performed By: #### C BC #### [facility] [address] [place] [address] Dr. Anthony Bonilla MONO # 1.1 103/ul Critically high 0.3-0.8 [facility] Comment on above: Performed By: #### C BC #### [facility] [address] [address] [address] Anthony Bonilla Monocytes/100 WBC (Bld) 12.0 % Normal 1.7-12.0 [facility] Comment on above: Performed By: #### C BC #### [facility] [address] [place] [address] Dr. Anthony Bonilla NEUT # 6.2 103/ul Normal 1.4-6.5 [facility] Comment on above: Performed By: #### C BC #### [facility] [address] [place] [address] Dr. Anthony Bonilla Neutrophils/100 WBC (Bld) 70.6 % Normal 43.0-75.0 [facility] Comment on above: Performed By: #### C BC #### [facility] [address] [place] [address] Dr. Anthony Bonilla Platelet mean volume (Bld) [Entitic vol] 9.8 fL Normal 9.5-13.5 [facility] Comment on above: Performed By: #### C BC #### [facility] [address] [place] [address] Dr. Anthony Bonilla PLT 305 103/ul Normal 150-450 [facility] Comment on above: Performed By: #### C BC #### [facility] [address] [place] [address] Dr. Anthony Bonilla RBC 3.27 106/ul Critically low 4.20-5.40 [facility] Comment on above: Performed By: #### C BC #### [facility] [address] [place] [address] Dr. Anthony Bonilla WBC 8.7 103/ul Normal 4.0-11.0 [facility] Comment on above: Performed By: #### C BC #### [facility] [address] [place] [address] Dr. Anthony Bonilla PROF CHEM 8 (BAS METB)on Anion gap [Moles/Vol] 12.2 mmol/L Normal [facility] Comment on above: Performed By: #### U RCX #### [facility] [address] [address] [address] Anthony Bonilla Calcium [Mass/Vol] 9.1 mg/dL Normal 8.5-10.1 [facility] Comment on above: Performed By: #### U RCX #### [facility] [address] [address] [address] Anthony Bonilla Chloride [Moles/Vol] 104 mmol/L Normal 98-107 [facility] Comment on above: Performed By: #### U RCX #### [facility] [address] [address] [address] Anthony Bonilla CO2 [Moles/Vol] 24.4 mmol/L Normal 21.0-32.0 [facility] Comment on above: Performed By: #### U RCX #### [facility] [address] [address] [address] Anthony Bonilla Creatinine [Mass/Vol] 1.20 mg/dL Critically high 0.55-1.02 [facility] Comment on above: Performed By: #### U RCX #### [facility] [address] [address] [address] Anthony Bonilla EGFR-AF BAHAMIAN 52 mL/min/1.73m2 Critically low >=60 [facility] Comment on above: Performed By: #### U RCX #### [facility] [address] [address] [address] Anthony Bonilla EGFR-NON AF BAHAMIAN 43 mL/min/1.73m2 Critically low >=60 [facility] Comment on above: Performed By: #### U RCX #### [facility] [address] [address] [address] Anthony Bonilla Glucose [Mass/Vol] 81 mg/dL Normal 74-106 [facility] Comment on above: Performed By: #### U RCX #### [facility] [address] [address] [address] Anthony Bonilla Potassium [Moles/Vol] 3.6 mmol/L Normal 3.5-5.1 [facility] Comment on above: Performed By: #### U RCX #### [facility] [address] [address] [address] Anthony Bonilla Sodium [Moles/Vol] 137 mmol/L Normal 136-145 [facility] Comment on above: Performed By: #### U RCX #### [facility] [address] [address] [address] Anthony Bonilla Urea nitrogen [Mass/Vol] 21.0 mg/dL Critically high 7.0-18.0 [facility] Comment on above: Performed By: #### U RCX #### [facility] [address] [address] [address] Anthony Bonilla Urea nitrogen/Creatinine [Mass ratio] 17.5 mg/mg Normal [facility] Comment on above: Performed By: #### U RCX #### [facility] [address] [address] [address] Anthony Bonilla CULTURE URINEon 12-29-2021 CULTURE [...] Trimethoprim/Sulfamethoxa zole <=20 S F Normal [facility] Comment on above: Performed By: #### U RCX #### [facility] [address] [place] [address] Dr. Anthony LEYVA URINE PROFILEon 2 Bilirubin Ql (U) SMALL Abnormal NEGATIVE [facility] Comment on above: Performed By: #### C BC #### [facility] [address] [place] [address] Dr. Anthony Bonilla Clarity (U) SL CLOUDY Abnormal CLEAR [facility] Comment on above: Performed By: #### C BC #### [facility] [address] [place] [address] Dr. Anthony Bonilla Color (U) YELLOW Normal YELLOW [facility] Comment on above: Performed By: #### C BC #### [facility] [address] [place] [address] Dr. Anthony Bonilla ERUAHD A micrscopic examina tion will be performed if indicated. Normal [facility] Comment on above: Performed By: #### C BC #### [facility] [address] [place] [address] Dr. Anthony Bonilla Glucose Ql (U) Negative Normal NEGATIVE The [facility] Comment on above: Performed By: #### C BC #### [facility] [address] [place] [address] Dr. Anthony Bonilla Hemoglobin Ql (U) Negative Normal NEGATIVE [facility] Comment on above: Performed By: #### C BC #### [facility] [address] [place] [address] Dr. Anthony Bonilla Ketones Ql (U) TRACE Abnormal NEGATIVE The [facility] Comment on above: Performed By: #### C BC #### [facility] [address] [place] [address] Dr. Anthony Bonilla LEUKOCYTES MODERATE Abnormal NEGATIVE [facility] Comment on above: Performed By: #### C BC #### [facility] [address] [place] [address] Dr. Anthony Bonilla Nitrite Ql (U) Positive Abnormal NEGATIVE [facility] Comment on above: Performed By: #### C BC #### [facility] [address] [place] [address] Dr. Anthony Bonilla pH (U) 7.5 [pH] Normal 5-9 [facility] Comment on above: Performed By: #### C BC #### [facility] [address] [place] [address] Dr. Anthony Bonilla Protein (U) [Mass/Vol] 30 mg/dL Abnormal NEGAT JAMAR/ TRACE [facility] Comment on above: Performed By: #### C BC #### [facility] [address] [place] [address] Dr. Anthony Bonilla SPEC GRAVITY 1.020 Normal 1.005-<=1. 025 [facility] Comment on above: Performed By: #### C BC #### [facility] [address] [place] [address] Dr. Anthony Bonilla UR MICRO IND INDICATED Normal [facility] Comment on above: Performed By: #### C BC #### [facility] [address] [place] [address] Dr. Anthony Bonilla Urobilinogen Qn (U) 0.2 {Gen'U}/dL Normal 0.2 - 1. 0 [facility] Comment on above: Performed By: #### C BC #### [facility] [address] [place] [address] Dr. Anthony Bonilla URINE MICROSCOPIC ONLYon BACTERIA TRACE Abnormal NONE SEEN The [facility] Comment on above: Performed By: #### C BC #### [facility] [address] [place] [address] Dr. Anthony Bonilla Bacteria identified Cx Nom (U) INDICATED Normal [facility] Comment on above: Performed By: #### C BC #### [facility] [address] [place] [address] Dr. Anthony Bonilla CAST NONE SEEN Normal NONE SEEN [facility] Comment on above: Performed By: #### C BC #### [facility] [address] [place] [address] Dr. Anthony Bonilla Crystals LM Nom (Urine sed) NONE SEEN Normal NONE SEEN [facility] Comment on above: Performed By: #### C BC #### [facility] [address] [place] [address] Dr. Anthony Bonilla Epithelial cells LM Ql (Urine sed) FEW Abnormal NONE SEEN /RARE [facility] Comment on above: Performed By: #### C BC #### [facility] [address] [place] [address] Dr. Anthony Bonilla MUCOUS NONE SEEN Normal NONE SEEN The [facility] Comment on above: Performed By: #### C BC #### [facility] [address] [place] [address] Dr. Anthony Bonilla RBC 0-2 Normal 0-2 [facility] Comment on above: Performed By: #### C BC #### [facility] [address] [place] [address] Dr. Anthony Bonilla WBC 5-10 Abnormal NONE SEEN The [facility] Comment on above: Performed By: #### C BC #### [facility] [address] [place] [address] Dr. Anthony Bonilla PRBC LEUKOREDUCEDon 11-20-19 PRBC LEUKOREDUCED Cross Match Result Compatible Unit Blood Type A Pos Unit Number [id number] Status Information Transfused Product ID Red Blood Cells Product Code [id number] Normal [facility] Comment on above: Performed By: #### P RBC #### [facility] [address] [place] [address] Dr. Anthony Bonilla CBC AUTO DIFFon 11-10-2021 BASO # 0.0 103/ul Normal 0.0-0.1 [facility] Comment on above: Performed By: #### C BC #### [facility] [address] [place] [address] Dr. Anthony Bonilla Basophils/100 WBC (Bld) 0.7 % Normal 0.2-2.0 [facility] Comment on above: Performed By: #### C BC #### [facility] [address] [place] [address] Dr. Anthony Bonilla EO # 0.2 103/ul Normal 0.0-0.7 [facility] Comment on above: Performed By: #### C BC #### [facility] [address] [address] [address] Anthony Bonilla Eosinophils/100 WBC (Bld) 2.7 % Normal 0.9-7.0 [facility] Comment on above: Performed By: #### C BC #### [facility] [address] [place] [address] Dr. Anthony Bonilla Erythrocyte distribution width (RBC) [Ratio] 16.3 % Critically high 11.0-15.0 [facility] Comment on above: Performed By: #### C BC #### [facility] [address] [place] [address] Dr. Anthony Bonilla Hematocrit (Bld) [Volume fraction] 29.0 % Critically low 36.0-48.0 [facility] Comment on above: Performed By: #### C BC #### [facility] [address] [place] [address] Dr. Anthony Bonilla Hemoglobin (Bld) [Mass/Vol] 9.4 g/dL Critically low 12.0-16.0 [facility] Comment on above: Performed By: #### C BC #### [facility] [address] [place] [address] Dr. Anthony Bonilla IG # 0.04 10e3/ul Critically high 0.00-0.[address] [facility] Comment on above: Performed By: #### C BC #### [facility] [address] [place] [address] Dr. Anthony Bonilla IG % 0.7 % Critically high 0.0-0.5 [facility] Comment on above: Performed By: #### C BC #### [facility] [address] [place] [address] Dr. Anthony Bonilla LYMPH # 1.2 103/ul Normal 1.2-3.8 [facility] Comment on above: Performed By: #### C BC #### [facility] [address] [place] [address] Dr. Anthony Bonilla Lymphocytes/100 WBC (Bld) 21.5 % Normal 20.5-60.0 [facility] Comment on above: Performed By: #### C BC #### [facility] [address] [place] [address] Dr. Anthony Bonilla MANUAL DIFF REQ NO Normal [facility] Comment on above: Performed By: #### C BC #### [facility] [address] [place] [address] Dr. Anthony Bonilla MCH (RBC) [Entitic mass] 32.3 pg Normal 26.7-34.0 [facility] Comment on above: Performed By: #### C BC #### [facility] [address] [place] [address] Dr. Anthony Bonilla MCHC (RBC) [Mass/Vol] 32.4 g/dL Normal 29.9-35.2 [facility] Comment on above: Performed By: #### C BC #### [facility] [address] [place] [address] Dr. Anthony Bonilla MCV (RBC) [Entitic vol] 99.7 fL Critically high 81.0-99.0 [facility] Comment on above: Performed By: #### C BC #### [facility] [address] [place] [address] Dr. Anthony Bonilla MONO # 0.7 103/ul Normal 0.3-0.8 [facility] Comment on above: Performed By: #### C BC #### [facility] [address] [place] [address] Dr. Anthony Bonilla Monocytes/100 WBC (Bld) 12.6 % Critically high 1.7-12.0 [facility] Comment on above: Performed By: #### C BC #### [facility] [address] [place] [address] Dr. Anthony Bonilla NEUT # 3.4 103/ul Normal 1.4-6.5 [facility] Comment on above: Performed By: #### C BC #### [facility] [address] [place] [address] Dr. Anthony Bonilla Neutrophils/100 WBC (Bld) 61.8 % Normal 43.0-75.0 [facility] Comment on above: Performed By: #### C BC #### [facility] [address] [address] [address] Anthony Bonilla Platelet mean volume (Bld) [Entitic vol] 9.0 fL Critically low 9.5-13.5 [facility] Comment on above: Performed By: #### C BC #### [facility] [address] [address] [address] Anthony Bonilla PLT 429 103/ul Normal 150-450 [facility] Comment on above: Performed By: #### C BC #### [facility] [address] [address] [address] Anthony Bonilla RBC 2.91 106/ul Critically low 4.20-5.40 [facility] Comment on above: Performed By: #### C BC #### [facility] [address] [place] [address] Dr. Anthony Bon[place] WBC 5.5 103/ul Normal 4.0-11.0 [facility] Comment on above: Performed By: #### C BC #### [facility] [address] [address] [address] Anthony Bonilla PROF CHEM 8 (BAS METB)on Anion gap [Moles/Vol] 11.0 mmol/L Normal [facility] Comment on above: Performed By: #### B MP #### [facility] [address] [place] [address] Dr. Anthony Bonilla Calcium [Mass/Vol] 9.2 mg/dL Normal 8.5-10.1 [facility] Comment on above: Performed By: #### B MP #### [facility] [address] [place] [address] Dr. Anthony Bonilla Chloride [Moles/Vol] 107 mmol/L Normal 98-107 [facility] Comment on above: Performed By: #### B MP #### [facility] [address] [place] [address] Dr. Anthony Bonilla CO2 [Moles/Vol] 27.4 mmol/L Normal 21.0-32.0 [facility] Comment on above: Performed By: #### B MP #### [facility] [address] [address] [address] Anthony Bonilla Creatinine [Mass/Vol] 1.12 mg/dL Critically high 0.55-1.02 [facility] Comment on above: Performed By: #### B MP #### [facility] [address] [address] [address] Anthony Bonilla EGFR-AF BAHAMIAN 56 mL/min/1.73m2 Critically low >=60 [facility] Comment on above: Performed By: #### B MP #### [facility] [address] [address] [address] Anthony Bonilla EGFR-NON AF BAHAMIAN 46 mL/min/1.73m2 Critically low >=60 [facility] Comment on above: Performed By: #### B MP #### [facility] [address] [address] [address] Anthony Bonilla Glucose [Mass/Vol] 89 mg/dL Normal 74-106 [facility] Comment on above: Performed By: #### B MP #### [facility] [address] [address] [address] Anthony Bonilla Potassium [Moles/Vol] 4.4 mmol/L Normal 3.5-5.1 [facility] Comment on above: Performed By: #### B MP #### [facility] [address] [address] [address] Anthony Bonilla Sodium [Moles/Vol] 141 mmol/L Normal 136-145 [facility] Comment on above: Performed By: #### B MP #### [facility] [address] [address] [address] Anthony Bonilla Urea nitrogen [Mass/Vol] 18.0 mg/dL Normal 7.0-18.0 [facility] Comment on above: Performed By: #### B MP #### [facility] [address] [address] [address] Anthony Bonilla Urea nitrogen/Creatinine [Mass ratio] 16.1 mg/mg Normal [facility] Comment on above: Performed By: #### B MP #### [facility] [address] [address] [address] Anthony Bonilla CBC AUTO DIFFon 11-04-2021 BASO # 0.0 103/ul Normal 0.0-0.1 [facility] Comment on above: Performed By: #### C BC #### [facility] [address] [place] [address] Dr. Anthony Bonilla Basophils/100 WBC (Bld) 0.2 % Normal 0.2-2.0 [facility] Comment on above: Performed By: #### C BC #### [facility] [address] [place] [address] Dr. Anthony Bonilla EO # 0.1 103/ul Normal 0.0-0.7 [facility] Comment on above: Performed By: #### C BC #### [facility] [address] [place] [address] Dr. Anthony Bonilla Eosinophils/100 WBC (Bld) 0.8 % Critically low 0.9-7.0 [facility] Comment on above: Performed By: #### C BC #### [facility] [address] [place] [address] Dr. Anthony Bonilla Erythrocyte distribution width (RBC) [Ratio] 16.7 % Critically high 11.0-15.0 [facility] Comment on above: Performed By: #### C BC #### [facility] [address] [place] [address] Dr. Anthony Bonilla Hematocrit (Bld) [Volume fraction] 25.6 % Critically low 36.0-48.0 [facility] Comment on above: Performed By: #### C BC #### [facility] [address] [place] [address] Dr. Anthony Bonilla Hemoglobin (Bld) [Mass/Vol] 8.5 g/dL Critically low 12.0-16.0 [facility] Comment on above: Performed By: #### C BC #### [facility] [address] [place] [address] Dr. Anthony Bonilla IG # 0.05 10e3/ul Critically high 0.00-0.[address] [facility] Comment on above: Performed By: #### C BC #### [facility] [address] [address] [address] Anthony Bonilla IG % 0.5 % Normal 0.0-0.5 [facility] Comment on above: Performed By: #### C BC #### [facility] [address] [place] [address] Dr. Anthony Bonilla LYMPH # 0.6 103/ul Critically low 1.2-3.8 [facility] Comment on above: Performed By: #### C BC #### [facility] [address] [place] [address] Dr. Anthony Bonilla Lymphocytes/100 WBC (Bld) 6.2 % Critically low 20.5-60.0 [facility] Comment on above: Performed By: #### C BC #### [facility] [address] [place] [address] Dr. Anthony Bonilla MANUAL DIFF REQ NO Normal [facility] Comment on above: Performed By: #### C BC #### [facility] [address] [place] [address] Dr. Anthony Bonilla MCH (RBC) [Entitic mass] 31.6 pg Normal 26.7-34.0 [facility] Comment on above: Performed By: #### C BC #### [facility] [address] [place] [address] Dr. Anthony Bonilla MCHC (RBC) [Mass/Vol] 33.2 g/dL Normal 29.9-35.2 [facility] Comment on above: Performed By: #### C BC #### [facility] [address] [place] [address] Dr. Anthony Bonilla MCV (RBC) [Entitic vol] 95.2 fL Normal 81.0-99.0 [facility] Comment on above: Performed By: #### C BC #### [facility] [address] [place] [address] Dr. Anthony Bonilla MONO # 0.6 103/ul Normal 0.3-0.8 [facility] Comment on above: Performed By: #### C BC #### [facility] [address] [address] [address] Anthony Bonilla Monocytes/100 WBC (Bld) 6.1 % Normal 1.7-12.0 [facility] Comment on above: Performed By: #### C BC #### [facility] [address] [address] [address] Anthony Bonilla NEUT # 8.8 103/ul Critically high 1.4-6.5 [facility] Comment on above: Performed By: #### C BC #### [facility] [address] [address] [address] Anthony Bonilla Neutrophils/100 WBC (Bld) 86.2 % Critically high 43.0-75.0 [facility] Comment on above: Performed By: #### C BC #### [facility] [address] [place] [address] Dr. Anthony Bonilla Platelet mean volume (Bld) [Entitic vol] 9.8 fL Normal 9.5-13.5 [facility] Comment on above: Performed By: #### C BC #### [facility] [address] [address] [address] Anthony Bonilla PLT 156 103/ul Normal 150-450 [facility] Comment on above: Performed By: #### C BC #### [facility] [address] [address] [address] Anthony Bonilla RBC 2.69 106/ul Critically low 4.20-5.40 [facility] Comment on above: Performed By: #### C BC #### [facility] [address] [place] [address] Dr. Anthony Bonilla WBC 10.3 103/ul Normal 4.0-11.0 [facility] Comment on above: Performed By: #### C BC #### [facility] [address] [place] [address] Dr. Anthony Bonilla CULTURE URINEon 11-04-2021 CULTURE [...] F Trimethoprim/Sulfamethoxa zole <=20 S F Normal [facility] Comment on above: Performed By: #### U RCX #### [facility] [address] [place] [address] Dr. Anthony Bonilla PROF CHEM 8 (BAS METB)on Anion gap [Moles/Vol] 12.9 mmol/L Normal [facility] Comment on above: Performed By: #### U RCX #### [facility] [address] [place] [address] Dr. Anthony Bonilla Calcium [Mass/Vol] 8.6 mg/dL Normal 8.5-10.1 [facility] Comment on above: Performed By: #### U RCX #### [facility] [address] [place] [address] Dr. Anthony Bonilla Chloride [Moles/Vol] 108 mmol/L Critically high 98-107 [facility] Comment on above: Performed By: #### U RCX #### [facility] [address] [address] [address] Anthony Bonilla CO2 [Moles/Vol] 23.1 mmol/L Normal 21.0-32.0 [facility] Comment on above: Performed By: #### U RCX #### [facility] [address] [place] [address] Dr. Anthony Bonilla Creatinine [Mass/Vol] 0.98 mg/dL Normal 0.55-1.02 [facility] Comment on above: Performed By: #### U RCX #### [facility] [address] [place] [address] Dr. Anthony Bonilla EGFR-AF BAHAMIAN >60 Normal >=60 [facility] Comment on above: Performed By: #### U RCX #### [facility] [address] [address] [address] Anthony Bonilla EGFR-NON AF BAHAMIAN 54 mL/min/1.73m2 Critically low >=60 [facility] Comment on above: Performed By: #### U RCX #### [facility] [address] [address] [address] Anthony Bonilla Glucose [Mass/Vol] 86 mg/dL Normal 74-106 [facility] Comment on above: Performed By: #### U RCX #### [facility] [address] [address] [address] Anthony Bonilla Potassium [Moles/Vol] 4.0 mmol/L Normal 3.5-5.1 [facility] Comment on above: Performed By: #### U RCX #### [facility] [address] [address] [address] Anthony Bonilla Sodium [Moles/Vol] 140 mmol/L Normal 136-145 [facility] Comment on above: Performed By: #### U RCX #### [facility] [address] [address] [address] Anthony Bonilla Urea nitrogen [Mass/Vol] 31.0 mg/dL Critically high 7.0-18.0 [facility] Comment on above: Performed By: #### U RCX #### [facility] [address] [address] [address] Anthony Bonilla Urea nitrogen/Creatinine [Mass ratio] 31.6 mg/mg Normal [facility] Comment on above: Performed By: #### U RCX #### [facility] [address] [address] [address] Anthony Bonilla CBC AUTO DIFFon 11-03-2021 BASO # 0.0 103/ul Normal 0.0-0.1 [facility] Comment on above: Performed By: #### C BC #### [facility] [address] [address] [address] Anthony Bonilla Basophils/100 WBC (Bld) 0.3 % Normal 0.2-2.0 [facility] Comment on above: Performed By: #### C BC #### [facility] [address] [address] [address] Anthony Bonilla EO # 0.1 103/ul Normal 0.0-0.7 [facility] Comment on above: Performed By: #### C BC #### [facility] [address] [place] [address] Dr. Anthony Bonilla Eosinophils/100 WBC (Bld) 0.6 % Critically low 0.9-7.0 [facility] Comment on above: Performed By: #### C BC #### [facility] [address] [place] [address] Dr. Anthony Bonilla Erythrocyte distribution width (RBC) [Ratio] 14.0 % Normal 11.0-15.0 [facility] Comment on above: Performed By: #### C BC #### [facility] [address] [place] [address] Dr. Anthony Bonilla Hematocrit (Bld) [Volume fraction] 23.1 % Critically low 36.0-48.0 [facility] Comment on above: Result Comment: Flui ds given Performed By: #### C BC #### [facility] [address] [place] [address] Dr. Anthony Bonilla Hemoglobin (Bld) [Mass/Vol] 7.6 g/dL Critically low 12.0-16.0 [facility] Comment on above: Performed By: #### C BC #### [facility] [address] [place] [address] Dr. Anthony Bonilla IG # 0.07 10e3/ul Critically high 0.00-0.[address] [facility] Comment on above: Performed By: #### C BC #### [facility] [address] [place] [address] Dr. Anthony Bonilla IG % 0.6 % Critically high 0.0-0.5 [facility] Comment on above: Performed By: #### C BC #### [facility] [address] [place] [address] Dr. Anthony Bonilla LYMPH # 0.7 103/ul Critically low 1.2-3.8 [facility] Comment on above: Performed By: #### C BC #### [facility] [address] [place] [address] Dr. Anthony Bonilla Lymphocytes/100 WBC (Bld) 5.7 % Critically low 20.5-60.0 [facility] Comment on above: Performed By: #### C BC #### [facility] [address] [place] [address] Dr. Anthony Bonilla MANUAL DIFF REQ NO Normal [facility] Comment on above: Performed By: #### C BC #### [facility] [address] [place] [address] Dr. Anthony Bonilla MCH (RBC) [Entitic mass] 32.6 pg Normal 26.7-34.0 [facility] Comment on above: Performed By: #### C BC #### [facility] [address] [place] [address] Dr. Anthony Bonilla MCHC (RBC) [Mass/Vol] 32.9 g/dL Normal 29.9-35.2 [facility] Comment on above: Performed By: #### C BC #### [facility] [address] [place] [address] Dr. Anthony Bonilla MCV (RBC) [Entitic vol] 99.1 fL Critically high 81.0-99.0 [facility] Comment on above: Performed By: #### C BC #### [facility] [address] [place] [address] Dr. Anthony Bonilla MONO # 0.8 103/ul Normal 0.3-0.8 [facility] Comment on above: Performed By: #### C BC #### [facility] [address] [place] [address] Dr. Anthony Bonilla Monocytes/100 WBC (Bld) 6.8 % Normal 1.7-12.0 [facility] Comment on above: Performed By: #### C BC #### [facility] [address] [place] [address] Dr. Anthony Bonilla NEUT # 9.8 103/ul Critically high 1.4-6.5 [facility] Comment on above: Performed By: #### C BC #### [facility] [address] [address] [address] Anthony Bonilla Neutrophils/100 WBC (Bld) 86.0 % Critically high 43.0-75.0 [facility] Comment on above: Performed By: #### C BC #### [facility] [address] [address] [address] Anthony Bonilla Platelet mean volume (Bld) [Entitic vol] 9.5 fL Normal 9.5-13.5 [facility] Comment on above: Performed By: #### C BC #### [facility] [address] [address] [address] Anthony Bonilla PLT 160 103/ul Normal 150-450 [facility] Comment on above: Performed By: #### C BC #### [facility] [address] [place] [address] Dr. Anthony Bonilla RBC 2.33 106/ul Critically low 4.20-5.40 [facility] Comment on above: Performed By: #### C BC #### [facility] [address] [address] [address] Anthony Bonilla WBC 11.4 103/ul Critically high 4.0-11.0 [facility] Comment on above: Performed By: #### C BC #### [facility] [address] [address] [address] Anthony Bonilla HEMOGLOBIN AND HEMATOCRITon 11-03-2021 Hematocrit (Bld) [Volume fraction] 27.0 % Critically low 36.0-48.0 [facility] Comment on above: Performed By: #### U RCX #### [facility] [address] [address] [address] Anthony Bonilla Hemoglobin (Bld) [Mass/Vol] 9.1 g/dL Critically low 12.0-16.0 [facility] Comment on above: Performed By: #### U RCX #### [facility] [address] [address] [address] Anthony Bonilla OCC BLD IMMUNO SCREENon 10-10 OCCULT BLOOD Positive Abnormal NEGATIVE [facility] Comment on above: Performed By: #### C BC #### [facility] [address] [place] [address] Dr. Anthony Bonilla PROF CHEM 8 (BAS METB)on Anion gap [Moles/Vol] 10.7 mmol/L Normal [facility] Comment on above: Performed By: #### C BC #### [facility] [address] [address] [address] Anthony Bonilla Calcium [Mass/Vol] 8.6 mg/dL Normal 8.5-10.1 [facility] Comment on above: Performed By: #### C BC #### [facility] [address] [place] [address] Dr. Anthony Bonilla Chloride [Moles/Vol] 107 mmol/L Normal 98-107 [facility] Comment on above: Performed By: #### C BC #### [facility] [address] [place] [address] Dr. Anthony Bonilla CO2 [Moles/Vol] 24.4 mmol/L Normal 21.0-32.0 [facility] Comment on above: Performed By: #### C BC #### [facility] [address] [place] [address] Dr. Anthony Bonilla Creatinine [Mass/Vol] 0.98 mg/dL Normal 0.55-1.02 [facility] Comment on above: Performed By: #### C BC #### [facility] [address] [place] [address] Dr. Anthony Bonilla EGFR-AF BAHAMIAN >60 Normal >=60 [facility] Comment on above: Performed By: #### C BC #### [facility] [address] [place] [address] Dr. Anthony Bonilla EGFR-NON AF BAHAMIAN 54 mL/min/1.73m2 Critically low >=60 [facility] Comment on above: Performed By: #### C BC #### [facility] [address] [place] [address] Dr. Anthony Bonilla Glucose [Mass/Vol] 98 mg/dL Normal 74-106 [facility] Comment on above: Performed By: #### C BC #### [facility] [address] [address] [address] Anthony Bonilla Potassium [Moles/Vol] 4.1 mmol/L Normal 3.5-5.1 [facility] Comment on above: Performed By: #### C BC #### [facility] [address] [address] [address] Anthony Bonilla Sodium [Moles/Vol] 138 mmol/L Normal 136-145 [facility] Comment on above: Performed By: #### C BC #### [facility] [address] [address] [address] Anthony Bonilla Urea nitrogen [Mass/Vol] 43.0 mg/dL Critically high 7.0-18.0 [facility] Comment on above: Performed By: #### C BC #### [facility] [address] [address] [address] Anthony Bonilla Urea nitrogen/Creatinine [Mass ratio] 43.9 mg/mg Normal [facility] Comment on above: Performed By: #### C BC #### [facility] [address] [address] [address] Anthony Bonilla TYPE AND SCREENon 11-03-2021 TYPE AND SCREEN Negative Normal [facility] Comment on above: Performed By: #### C BC #### [facility] [address] [address] [address] Anthony Bonilla CBC AUTO DIFFon 11-02-2021 BASO # 0.0 103/ul Normal 0.0-0.1 [facility] Comment on above: Performed By: #### U RCX #### [facility] [address] [address] [address] Anthony Bonilla Basophils/100 WBC (Bld) 0.3 % Normal 0.2-2.0 [facility] Comment on above: Performed By: #### U RCX #### [facility] [address] [address] [address] Anthony Bonilla EO # 0.0 103/ul Normal 0.0-0.7 [facility] Comment on above: Performed By: #### U RCX #### [facility] [address] [place] [address] Dr. Anthony Bonilla Eosinophils/100 WBC (Bld) 0.1 % Critically low 0.9-7.0 [facility] Comment on above: Performed By: #### U RCX #### [facility] [address] [place] [address] Dr. Anthony Bonilla Erythrocyte distribution width (RBC) [Ratio] 13.9 % Normal 11.0-15.0 [facility] Comment on above: Performed By: #### U RCX #### [facility] [address] [place] [address] Dr. Anthony Bonilla Hematocrit (Bld) [Volume fraction] 31.8 % Critically low 36.0-48.0 [facility] Comment on above: Performed By: #### U RCX #### [facility] [address] [place] [address] Dr. Anthony Bonilla Hemoglobin (Bld) [Mass/Vol] 10.5 g/dL Critically low 12.0-16.0 [facility] Comment on above: Performed By: #### U RCX #### [facility] [address] [place] [address] Dr. Anthony Bonilla IG # 0.07 10e3/ul Critically high 0.00-0.[address] [facility] Comment on above: Performed By: #### U RCX #### [facility] [address] [place] [address] Dr. Anthony Bonilla IG % 0.5 % Normal 0.0-0.5 [facility] Comment on above: Performed By: #### U RCX #### [facility] [address] [place] [address] Dr. Anthony Bonilla LYMPH # 0.9 103/ul Critically low 1.2-3.8 [facility] Comment on above: Performed By: #### U RCX #### [facility] [address] [place] [address] Dr. Anthony Bonilla Lymphocytes/100 WBC (Bld) 6.1 % Critically low 20.5-60.0 [facility] Comment on above: Performed By: #### U RCX #### [facility] [address] [place] [address] Dr. Anthony Bonilla MANUAL DIFF REQ NO Normal [facility] Comment on above: Performed By: #### U RCX #### [facility] [address] [place] [address] Dr. Anthony Bonilla MCH (RBC) [Entitic mass] 32.7 pg Normal 26.7-34.0 [facility] Comment on above: Performed By: #### U RCX #### [facility] [address] [place] [address] Dr. Anthony Bonilla MCHC (RBC) [Mass/Vol] 33.0 g/dL Normal 29.9-35.2 [facility] Comment on above: Performed By: #### U RCX #### [facility] [address] [place] [address] Dr. Anthony Bonilla MCV (RBC) [Entitic vol] 99.1 fL Critically high 81.0-99.0 [facility] Comment on above: Performed By: #### U RCX #### [facility] [address] [place] [address] Dr. Anthony Bonilla MONO # 1.0 103/ul Critically high 0.3-0.8 [facility] Comment on above: Performed By: #### U RCX #### [facility] [address] [place] [address] Dr. Anthony Bonilla Monocytes/100 WBC (Bld) 6.8 % Normal 1.7-12.0 The [facility] Comment on above: Performed By: #### U RCX #### [facility] [address] [place] [address] Dr. Anthony Bonilla NEUT # 12.1 103/ul Critically high 1.4-6.5 [facility] Comment on above: Performed By: #### U RCX #### [facility] [address] [place] [address] Dr. Anthony Bonilla Neutrophils/100 WBC (Bld) 86.2 % Critically high 43.0-75.0 [facility] Comment on above: Performed By: #### U RCX #### [facility] [address] [place] [address] Dr. Anthony Bonilla Platelet mean volume (Bld) [Entitic vol] 9.8 fL Normal 9.5-13.5 [facility] Comment on above: Performed By: #### U RCX #### [facility] [address] [place] [address] Dr. Anthony Bonilla PLT 175 103/ul Normal 150-450 [facility] Comment on above: Performed By: #### U RCX #### [facility] [address] [place] [address] Dr. Anthony Bonilla RBC 3.21 106/ul Critically low 4.20-5.40 [facility] Comment on above: Performed By: #### U RCX #### [facility] [address] [place] [address] Dr. Anthony Bonilla WBC 14.0 103/ul Critically high 4.0-11.0 [facility] Comment on above: Performed By: #### U RCX #### [facility] [address] [place] [address] HEAD WO CONon [...] HERNANDO HAMLIN Date: 2021-11-01 22:36 Normal The [facility] PROF CHEM 8 (BAS METB)on Anion gap [Moles/Vol] 12.2 mmol/L Normal [facility] Comment on above: Performed By: #### C BC #### [facility] [address] [address] [address] Anthony Bonilla Calcium [Mass/Vol] 8.7 mg/dL Normal 8.5-10.1 [facility] Comment on above: Performed By: #### C BC #### [facility] [address] [address] [address] Anthony Bonilla Chloride [Moles/Vol] 103 mmol/L Normal 98-107 [facility] Comment on above: Performed By: #### C BC #### [facility] [address] [address] [address] Anthony Bonilla CO2 [Moles/Vol] 25.7 mmol/L Normal 21.0-32.0 [facility] Comment on above: Performed By: #### C BC #### [facility] [address] [address] [address] Anthony Bonilla Creatinine [Mass/Vol] 1.08 mg/dL Critically high 0.55-1.02 [facility] Comment on above: Performed By: #### C BC #### [facility] [address] [address] [address] Anthony Bonilla EGFR-AF BAHAMIAN 58 mL/min/1.73m2 Critically low >=60 The [facility] Comment on above: Performed By: #### C BC #### [facility] [address] [address] [address] Anthony Bonilla EGFR-NON AF BAHAMIAN 48 mL/min/1.73m2 Critically low >=60 The [facility] Comment on above: Performed By: #### C BC #### [facility] [address] [address] [address] Anthony Bonilla Glucose [Mass/Vol] 84 mg/dL Normal 74-106 [facility] Comment on above: Performed By: #### C BC #### [facility] [address] [address] [address] Anthony Bonilla Potassium [Moles/Vol] 4.9 mmol/L Normal 3.5-5.1 [facility] Comment on above: Performed By: #### C BC #### [facility] [address] [address] [address] Anthony Bonilla Sodium [Moles/Vol] 136 mmol/L Normal 136-145 [facility] Comment on above: Performed By: #### C BC #### [facility] [address] [address] [address] Anthony Bonilla Urea nitrogen [Mass/Vol] 33.0 mg/dL Critically high 7.0-18.0 [facility] Comment on above: Performed By: #### C BC #### [facility] [address] [address] [address] Anthony Bonilla Urea nitrogen/Creatinine [Mass ratio] 30.6 mg/mg Normal [facility] Comment on above: Performed By: #### C BC #### [facility] [address] [address] [address] Anthony Bonilla XR CHEST 1 Von [...] GIANA HOLLY Date: 2021-11-01 22:05 Normal The [facility] CARDIAC DARWIN ADMITon 022 CK [Catalytic activity/Vol] 92 U/L Normal 26-192 The [facility] Comment on above: Performed By: #### C BC #### [facility] [address] [address] [address] Anthony Bonilla CK.MB [Mass/Vol] 1.73 ng/mL Normal <=3.60 [facility] Comment on above: Performed By: #### C BC #### [facility] [address] [place] [address] Dr. Anthony Bonilla HSTROP 20.0 pg/mL Normal 4.0-51.3 The [facility] Comment on above: Result Comment: CUT- OFF POINTS HAVE BEEN ESTABLISHED BASED ON THE FOURTH UNIVERSAL DEFINITIONS OF MYOCARDIAL INFARCTION. THE UPPER REFERENCE LIMIT (URL) OF TROPONIN, DEFINED THE 99TH PERCENTILE OF cTnI DISTRIBUTION IN A REFERENCE POPULATION, HAS BEEN CONFIRMED THE DECISION THRESHOLD FOR DC DIAGNOSIS. Performed By: #### C BC #### [facility] [address] [place] [address] Dr. Anthony Bonilla CANDIDA 58 ng/mL Normal 9-82 The [facility] Comment on above: Performed By: #### C BC #### [facility] [address] [place] [address] Dr. Anthony Bonilla CBC AUTO DIFFon 11-01-2021 BASO # 0.0 103/ul Normal 0.0-0.1 [facility] Comment on above: Performed By: #### U RCX #### [facility] [address] [place] [address] Dr. Anthony Bonilla Basophils/100 WBC (Bld) 0.2 % Normal 0.2-2.0 The [facility] Comment on above: Performed By: #### U RCX #### [facility] [address] [place] [address] Dr. Anthony Bonilla EO # 0.0 103/ul Normal 0.0-0.7 The [facility] Comment on above: Performed By: #### U RCX #### [facility] [address] [place] [address] Dr. Anthony Bonilla Eosinophils/100 WBC (Bld) 0.0 % Critically low 0.9-7.0 The [facility] Comment on above: Performed By: #### U RCX #### [facility] [address] [place] [address] Dr. Anthony Bonilla Erythrocyte distribution width (RBC) [Ratio] 14.1 % Normal 11.0-15.0 The [facility] Comment on above: Performed By: #### U RCX #### [facility] [address] [address] [address] Anthony Bonilla Hematocrit (Bld) [Volume fraction] 36.0 % Normal 36.0-48.0 [facility] Comment on above: Performed By: #### U RCX #### [facility] [address] [place] [address] Dr. Anthony Bonilla Hemoglobin (Bld) [Mass/Vol] 12.1 g/dL Normal 12.0-16.0 [facility] Comment on above: Performed By: #### U RCX #### [facility] [address] [address] [address] Anthony Bonilla IG # 0.11 10e3/ul Critically high 0.00-0.[address] [facility] Comment on above: Performed By: #### U RCX #### [facility] [address] [place] [address] Dr. Anthony Bonilla IG % 0.5 % Normal 0.0-0.5 [facility] Comment on above: Performed By: #### U RCX #### [facility] [address] [place] [address] Dr. Anthony Bonilla LYMPH # 0.7 103/ul Critically low 1.2-3.8 [facility] Comment on above: Performed By: #### U RCX #### [facility] [address] [place] [address] Dr. Anthony Bonilla Lymphocytes/100 WBC (Bld) 3.2 % Critically low 20.5-60.0 [facility] Comment on above: Performed By: #### U RCX #### [facility] [address] [place] [address] Dr. Anthony Bonilla MANUAL DIFF REQ NO Normal [facility] Comment on above: Performed By: #### U RCX #### [facility] [address] [place] [address] Dr. Anthony Bonilla MCH (RBC) [Entitic mass] 33.0 pg Normal 26.7-34.0 [facility] Comment on above: Performed By: #### U RCX #### [facility] [address] [place] [address] Dr. Anthony Bonilla MCHC (RBC) [Mass/Vol] 33.6 g/dL Normal 29.9-35.2 The [facility] Comment on above: Performed By: #### U RCX #### [facility] [address] [address] [address] Anthony Bonilla MCV (RBC) [Entitic vol] 98.1 fL Normal 81.0-99.0 The [facility] Comment on above: Performed By: #### U RCX #### [facility] [address] [address] [address] Anthony Bonilla MONO # 1.1 103/ul Critically high 0.3-0.8 The [facility] Comment on above: Performed By: #### U RCX #### [facility] [address] [address] [address] Anthony Bonilla Monocytes/100 WBC (Bld) 4.8 % Normal 1.7-12.0 The [facility] Comment on above: Performed By: #### U RCX #### [facility] [address] [address] [address] Anthony Bonilla NEUT # 20.3 103/ul Critically high 1.4-6.5 [facility] Comment on above: Performed By: #### U RCX #### [facility] [address] [address] [address] Anthony Bonilla Neutrophils/100 WBC (Bld) 91.3 % Critically high 43.0-75.0 The [facility] Comment on above: Performed By: #### U RCX #### [facility] [address] [address] [address] Anthony Bonilla Platelet mean volume (Bld) [Entitic vol] 10.8 fL Normal 9.5-13.5 The [facility] Comment on above: Performed By: #### U RCX #### [facility] [address] [address] [address] Anthony Bonilla PLT 179 103/ul Normal 150-450 The [facility] Comment on above: Performed By: #### U RCX #### [facility] [address] [place] [address] Dr. Anthony Bonilla RBC 3.67 106/ul Critically low 4.20-5.40 The [facility] Comment on above: Performed By: #### U RCX #### [facility] [address] [place] [address] Dr. Anthony Bonilla WBC 22.2 103/ul Critically high 4.0-11.0 [facility] Comment on above: Performed By: #### U RCX #### [facility] [address] [place] [address] Dr. Anthony Bonilla CULTURE BLOODon 11-01-2021 Microscopic examination of blood, culture Culture Observations: NO GROWTH AT 5 DAYS. Normal The [facility] Comment on above: Performed By: #### B LDCX2 #### [facility] [address] [place] [address] Dr. Anthony Bonilla Performed By: #### C BC #### [facility] [address] [place] [address] Dr. Anthony Bonilla Covid-19 PCR (CVDTB)on 10-10 SARS-CoV-2 (COVID-19) RNA OH+probe Ql (Unsp spec) Detected Critically abnormal NOT DETECTED The [facility] Comment on above: Result Comment: This test is not yet approved or cleared by the [place] FDA. When there are no FDA-approved or cleared tests available, and other criteria are met, FDA can make tests available under an emergency access mechanism called an Emergency Use Authorization (EUA). The EUA for this test is supported by the [employer] of Health and Human Service's declaration that [...] used). Performed By: #### C BC #### [facility] [address] [place] [address] Dr. Anthony Bonilla ER URINE PROFILEon Bilirubin Ql (U) Negative Normal NEGATIVE [facility] Comment on above: Performed By: #### U RCX #### [facility] [address] [address] [address] Anthony Bonilla Clarity (U) CLEAR Normal CLEAR [facility] Comment on above: Performed By: #### U RCX #### [facility] [address] [address] [address] Anthony Bonilla Color (U) LT. YELLOW Normal YELLOW [facility] Comment on above: Performed By: #### U RCX #### [facility] [address] [address] [address] Anthony Bonilla ERUAHD A micrscopic examina tion will be performed if indicated. Normal [facility] Comment on above: Performed By: #### U RCX #### [facility] [address] [place] [address] Dr. Anthony Bonilla Glucose Ql (U) Negative Normal NEGATIVE [facility] Comment on above: Performed By: #### U RCX #### [facility] [address] [place] [address] Dr. Anthony Bonilla Hemoglobin Ql (U) TRACE-INTACT Abnormal NEGATIVE [facility] Comment on above: Performed By: #### U RCX #### [facility] [address] [address] [address] Anthoyn Bonilla Ketones Ql (U) Negative Normal NEGATIVE [facility] Comment on above: Performed By: #### U RCX #### [facility] [address] [address] [address] Anthony Bonilla LEUKOCYTES Negative Normal NEGATIVE [facility] Comment on above: Performed By: #### U RCX #### [facility] [address] [address] [address] Anthony Bonilla Nitrite Ql (U) Negative Normal NEGATIVE [facility] Comment on above: Performed By: #### U RCX #### [facility] [address] [place] [address] Dr. Anthony Bonilla pH (U) 6.0 [pH] Normal 5-9 [facility] Comment on above: Performed By: #### U RCX #### [facility] [address] [place] [address] Dr. Anthony Bonilla SPEC GRAVITY 1.020 Normal 1.005-<=1. 025 [facility] Comment on above: Performed By: #### U RCX #### [facility] [address] [place] [address] Dr. Anthony Bonilla UA PROTEIN Negative Normal NEGATIVE/ TRACE [facility] Comment on above: Performed By: #### U RCX #### [facility] [address] [place] [address] Dr. Anthony Bonilla UR MICRO IND INDICATED Normal [facility] Comment on above: Performed By: #### U RCX #### [facility] [address] [place] [address] Dr. Anthony Bonilla Urobilinogen Qn (U) 1.0 {Gen'U}/dL Normal 0.2 - 1. 0 [facility] Comment on above: Performed By: #### U RCX #### [facility] [address] [place] [address] Dr. Anthony Bonilla LACTATE/LACTIC ACIDon 2021 Lactate [Moles/Vol] 1.6 mmol/L Normal 0.4-1.9 [facility] Comment on above: Performed By: #### C BC #### [facility] [address] [place] [address] Dr. Anthony Bonilla PROF 14(COMP METB)on 022 Albumin [Mass/Vol] 3.2 g/dL Critically low 3.4-5.0 [facility] Comment on above: Performed By: #### C BC #### [facility] [address] [place] [address] Dr. Anthony Bonilla Albumin/Globulin [Mass ratio] 0.9 {ratio} Normal [facility] Comment on above: Performed By: #### C BC #### [facility] [address] [place] [address] Dr. Anthony Bonilla ALP [Catalytic activity/Vol] 26 U/L Critically low 46-116 [facility] Comment on above: Performed By: #### C BC #### [facility] [address] [address] [address] Anthony Bonilla ALT [Catalytic activity/Vol] 32 U/L Normal 14-59 [facility] Comment on above: Performed By: #### C BC #### [facility] [address] [address] [address] Anthony Bonilla Anion gap [Moles/Vol] 11.5 mmol/L Normal Th e [facility] Comment on above: Performed By: #### C BC #### [facility] [address] [address] [address] Anthony Bonilla AST [Catalytic activity/Vol] 16 U/L Normal 15-37 [facility] Comment on above: Performed By: #### C BC #### [facility] [address] [place] [address] Dr. Anthony Bonilla Bilirubin [Mass/Vol] 1.2 mg/dL Critically high 0.2-1.0 [facility] Comment on above: Performed By: #### C BC #### [facility] [address] [place] [address] Dr. Anthony Bonilla Calcium [Mass/Vol] 9.0 mg/dL Normal 8.5-10.1 [facility] Comment on above: Performed By: #### C BC #### [facility] [address] [place] [address] Dr. Anthony Bonilla Chloride [Moles/Vol] 102 mmol/L Normal 98-107 [facility] Comment on above: Performed By: #### C BC #### [facility] [address] [place] [address] Dr. Anthony Bonilla CO2 [Moles/Vol] 25.2 mmol/L Normal 21.0-32.0 [facility] Comment on above: Performed By: #### C BC #### [facility] [address] [place] [address] Dr. Anthony Bonilla Creatinine [Mass/Vol] 1.25 mg/dL Critically high 0.55-1.02 [facility] Comment on above: Performed By: #### C BC #### [facility] [address] [address] [address] Anthony Bonilla EGFR-AF BAHAMIAN 49 mL/min/1.73m2 Critically low >=60 [facility] Comment on above: Performed By: #### C BC #### [facility] [address] [address] [address] Anthony Bonilla EGFR-NON AF BAHAMIAN 41 mL/min/1.73m2 Critically low >=60 [facility] Comment on above: Performed By: #### C BC #### [facility] [address] [address] [address] Anthony Bonilla Globulin (S) [Mass/Vol] 3.4 g/dL Normal [facility] Comment on above: Performed By: #### C BC #### [facility] [address] [address] [address] Anthony Bonilla Glucose [Mass/Vol] 102 mg/dL Normal 74-106 [facility] Comment on above: Performed By: #### C BC #### [facility] [address] [address] [address] Anthony Bonilla Potassium [Moles/Vol] 4.7 mmol/L Normal 3.5-5.1 [facility] Comment on above: Performed By: #### C BC #### [facility] [address] [address] [address] Anthony Bonilla Protein [Mass/Vol] 6.6 g/dL Normal 6.4-8.2 [facility] Comment on above: Performed By: #### C BC #### [facility] [address] [address] [address] Anthony Bonilla Sodium [Moles/Vol] 134 mmol/L Critically low 136-145 [facility] Comment on above: Performed By: #### C BC #### [facility] [address] [address] [address] Anthony Bonilla Urea nitrogen [Mass/Vol] 33.0 mg/dL Critically high 7.0-18.0 [facility] Comment on above: Performed By: #### C BC #### [facility] [address] [place] [address] Dr. Anthony Bonilla Urea nitrogen/Creatinine [Mass ratio] 26.4 mg/mg Normal [facility] Comment on above: Performed By: #### C BC #### [facility] [address] [place] [address] Dr. Anthony Bonilla PROTIMEon 11-01-2021 INR Coag (PPP) [Relative time] 0.97 {INR} Normal [facility] Comment on above: Performed By: #### U RCX #### [facility] [address] [place] [address] Dr. Anthony Bonilla INR GUIDELINES SEE BELOW Normal [facility] Comment on above: Result Comment: MEGAN RED INR: 2.0 - 3.0 CONDITIONS NOT LISTED BELOW 2.5 - 3.5 FOR PROSTHETIC HEART VALVE REPLACEMENT 2.5 - 3.5 RECURRENT THROMBOSIS Performed By: #### U RCX #### [facility] [address] [place] [address] Dr. Anthony Bonilla PT Coag (PPP) [Time] 10.5 s Normal 9.0-11.6 [facility] Comment on above: Performed By: #### U RCX #### [facility] [address] [place] [address] Dr. Anthony Bonilla PTTon 11-01-2021 aPTT Coag (Bld) [Time] 27.8 s Normal 22.3-36.2 [facility] Comment on above: Performed By: #### U RCX #### [facility] [address] [place] [address] Dr. Anthony Bonilla TSHon 11-01-2021 TSH 1.011 uIU/mL Normal 0.358-3.74 0 [facility] Comment on above: Performed By: #### C BC #### [facility] [address] [place] [address] Dr. Anthony Bonilla URINE MICROSCOPIC ONLYon BACTERIA LARGE Abnormal NONE SEEN [facility] Comment on above: Performed By: #### U RCX #### [facility] [address] [place] [address] Dr. Anthony Bonilla Bacteria identified Cx Nom (U) INDICATED Normal [facility] Comment on above: Performed By: #### U RCX #### [facility] [address] [place] [address] Dr. Anthony Bonilla CAST NONE SEEN Normal NONE SEEN [facility] Comment on above: Performed By: #### U RCX #### [facility] [address] [place] [address] Dr. Anthony Bonilla Crystals LM Nom (Urine sed) NONE SEEN Normal NONE SEEN [facility] Comment on above: Performed By: #### U RCX #### [facility] [address] [place] [address] Dr. Anthony Bonilla Epithelial cells LM Ql (Urine sed) FEW Abnormal NONE SEEN /RARE [facility] Comment on above: Performed By: #### U RCX #### [facility] [address] [place] [address] Dr. Anthony Bonilla MUCOUS NONE SEEN Normal NONE SEEN [facility] Comment on above: Performed By: #### U RCX #### [facility] [address] [place] [address] Dr. Anthony Bonilla RBC 2-5 Abnormal 0-2 [facility] Comment on above: Performed By: #### U RCX #### [facility] [address] [place] [address] Dr. Anthony Bonilla WBC 0-2 Abnormal NONE SEEN [facility] Comment on above: Performed By: #### U RCX #### [facility] [address] [place] [address] Dr. Anthony Bonilla Covid-19 PCR (CVDTB)on SARS-CoV-2 (COVID-19) RNA [place]+probe Ql (Unsp spec) Detected Critically abnormal NOT DETECTED [facility] Comment on above: Result Comment: This test is not yet approved or cleared by the [place] FDA. When there are no FDA-approved or cleared tests available, and other criteria are met, FDA can make tests available under an emergency access mechanism called an Emergency Use Authorization (EUA). The EUA for this test is supported by the [place] of Health and Human Service's declaration that [...] used). Performed By: #### C BC #### [facility] [address] [place], [place] [address] Dr. Anthony Bonilla Covid-19 PCR ([facility])on SARS-CoV-2 (COVID-19) RNA [place]+probe Ql (Unsp spec) Not detected Normal NOT DETECTED [facility] Comment on above: Result Comment: This test is not yet approved or cleared by the [place] FDA. When there are no FDA-approved or cleared tests available, and other criteria are met, FDA can make tests available under an emergency access mechanism called an Emergency Use Authorization (EUA). The EUA for this test is supported by the [place] of Health and Human Service's (HHS's) declaration [...] SARS-CoV-2. Performed By: #### U RCX #### [facility] [address] [place], [place] [address] Dr. Anthony Bonilla Coding Summaryon 10-19-2019 Coding Summary CODING DATE: 020 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 Coding Queryon 10-02-2019 Coding Query HIM CODING QUERY FOR Accurate coding and billing requires that the principal diagnosis, secondary diagnosis and procedures be supported by physician documentation and that this documentation be reflected in the discharge summary (if required for patient type). Any time this information is not complete, it is the raisin washer?s responsibility to query the physician. Based on [...] timely attention to this matter. [employer] Ext [phone] [Electronically Signed on: 10/18/2019 21:40 EDT] Mi Licea DO [Verified on: 10/18/2019 21:40 EDT] Mi Licea DO [Transcribed on: 10/02/2019 11:06 EDT] [facility] Consent Formson 09-29-2019 Consent Forms [id number]#1.[facility] Med[facility] Managementon 09-09 Medication Management [id number]#1.00[facility] Outside Recordson 09-29-2019 Outside Records [id number]#1.00[facility] Outside Records [id number]#1.00[facility] Provider Orderson 09-29-2019 Provider Orders [id number]#1.00[facility] Telemetry Stripson 0 Telemetry Strips [id number]#1.00[facility] .Auto Diff 1on 2019 Auto [place] % 11 % Normal 12 [facility] Comment on above: Performed By: #### 1 [id number], [id number], [id number] #### [facility] (DEFAULT) [address] [place] [address] 18444 Baso Abs# 0.0 x10 Normal 0.0-0.2 [facility] Comment on above: Performed By: #### 1 [id number], [id number], [id number] #### [facility] (DEFAULT) [address] [place] [address] 16897 Basophils/100 WBC (Bld) 0.1 % Low 0.2-2.0 [facility] Comment on above: Performed By: #### 1 [id number], [id number], [id number] #### [facility] (DEFAULT) [address] [place] [address] 58962 Eos Abs# 0.2 x10 Normal 0.0-0.4 [facility] Comment on above: Performed By: #### 1 [id number], [id number], [id number] #### [facility] (DEFAULT) [address] [place] [address] 93574 Eosinophils/100 WBC (Bld) 2.2 % Normal 0.9-4.0 [facility] Comment on above: Performed By: #### 1 [id number], [id number], 4641885 #### [facility] (DEFAULT) [address] [place] [address] 21519 Lymphocytes (Bld) [#/Vol] 0.6 x10 Low 1.3-2.9 [facility] Comment on above: Performed By: #### 1 [id number], 84995383, 7289168 #### [facility] (DEFAULT) [address] [place] [address] 17130 Lymphocytes/100 WBC (Bld) 6 % Low 14-48 [facility] Comment on above: Performed By: #### 1 [id number], [id number], 5260580 #### [facility] (DEFAULT) [address] [place] [address] 16163 [place] Abs# 1.0 x10 High 0.0-0.8 [facility] Comment on above: Performed By: #### 1 [id number], [id number], 2837945 #### [facility] (DEFAULT) [address] [place] [address] 39184 Neut Abs# 7.2 x10 Normal 1.5-9.2 [facility] Comment on above: Performed By: #### 1 [id number], [id number], 6715807 #### [facility] (DEFAULT) [address] [place] [address] 07973 Neutrophils/100 WBC (Bld) 80 % Normal 44-88 [facility] Comment on above: Performed By: #### 1 [id number], 90066073, 1813844 #### [facility] (DEFAULT) [address] [place] [address] CBC w/ Auto Diffon 0 Erythrocyte distribution width (RBC) [Ratio] 14.4 % Normal 11.5-15.0 [facility] Comment on above: Performed By: #### 1 [id number], 86571029, 6379534 #### [facility] (DEFAULT) [address] [place] [address] Hematocrit (Bld) [Volume fraction] 36.2 % Normal 33.7-40.4 [facility] Comment on above: Performed By: #### 1 [id number], [id number], 6448993 #### [facility] (DEFAULT) [address] [place] [address] Hemoglobin (Bld) [Mass/Vol] 11.9 g/dL Normal 11.3-15.9 [facility] Comment on above: Performed By: #### 1 [id number], 03737555, 2603614 #### [facility] (DEFAULT) [address] [place] [address] Man Diff? Auto Normal [facility] Comment on above: Performed By: #### 1 [id number], 21494508, 8986678 #### [facility] (DEFAULT) [address] [place] [address] 21853 MCH (RBC) [Entitic mass] 33 pg Normal 24-34 [facility] Comment on above: Performed By: #### 1 [id number], 06429558, 1481088 #### [facility] (DEFAULT) [address] [place] [address] 76537 MCHC (RBC) [Mass/Vol] 33 g/dL Normal 26-37 [facility] Comment on above: Performed By: #### 1 [id number], 71325599, 5107257 #### [facility] (DEFAULT) [address] [place] [address] MCV (RBC) [Entitic vol] 100 fL Normal 81-100 [facility] Comment on above: Performed By: #### 1 [id number], 76566153, 2381071 #### [facility] (DEFAULT) [address] [place] [address] 63128 Platelet mean volume (Bld) [Entitic vol] 9.6 fL Normal 6.3-10.2 [facility] Comment on above: Performed By: #### 1 [id number], 31245055, 1585974 #### [facility] (DEFAULT) [address] [place] [address] 00106 Platelets (Bld) [#/Vol] 286 x10 Normal 138-427 [facility] Comment on above: Performed By: #### 1 [id number], 43325112, 6603015 #### [facility] (DEFAULT) [address] [place] [address] 90829 RBC (Bld) [#/Vol] 3.61 x10 Low 3.70-5.30 [facility] Comment on above: Performed By: #### 1 [id number], 19607673, 1030978 #### [facility] (DEFAULT) [address] [place] [address] 10559 WBC (Bld) [#/Vol] 9.0 x10 [facility] Comment on above: Performed By: #### 1 [id number], 03614652, 8913806 #### [facility] (DEFAULT) [address] [place] [address] 47558 Education Noteon 2019 Education Note Education Materials [...] done to rule of a DVT. Normal [facility] Extra Green 2019 Tube Collected Yes [facility] Comment on above: Performed By: #### 1 [id number], [id number], [id number] #### [facility] (DEFAULT) [address] [place] [address] Inpatient Patient Summaryon 2019 Inpatient Patient Summary [facility] [address] [place] [address] Patient Discharge Instructions Name: DELICIA HSU : 1935 Patient Address: [address] [place] [address] Primary Care Provider: Name: Gypsy Mcmahon MD After you are discharged if you find you have any questions, please, call [phone] ext [phone] to speak to a nurse. Discharge Diagnosis: Primary localized osteoarthritis of left hip Prescription Information: If you have been given a prescription for narcotics, seek immediate medical attention if you have any difficulty breathing or any sudden status changes such as confusion and sleepiness. If you or anyone you know is experiencing suicidal thoughts, mental health, alcohol and/or drug addiction problems; contact the [facility] 31/08 Crisis Hotline -text 4HAXW ck 994980. If you received any narcotics, sedation, or [...] business decisions or sign any legal documents [facility] would like to thank you for allowing us to assist you with your healthcare needs. The following includes patient education materials and information regarding your injury/illness. DELICIA HSU has been given the following list of follow-up instructions, prescriptions, and patient education materials: Follow-up Instructions With: Address: When: Mi Licea [address] [place] [address] [address] [place] [address] Business (2) 10/03/2019 8:30 AM With: Address: When: Gypsy Mcmahon [address] [place] [address] [place] [address] Business (1) Medications During the [...] Control and Prevention October [address] [facility] Progress Note - Nurseon 09-09 [facility] Pt. transferred to bed times [...] 11:52 EDT] Pan Regalado RN [facility] Progress Note - Nurse Pt. reports interm ittent left upper inner thigh grabbing pain. Pt. moans during these episodes. Tramadol given. Pt. repostioned for comfort. No change in the muscle spasms. Dr. Chacko informed in person. No orders received. [Electronically Signed on: 2019 09:32 EDT] Pan Regalado RN [Verified on: 2019 09:32 EDT] Pan Regalado RN [facility] Progress Note-Physicianon Progress Note-Physician DATE [...] PROGNOSIS: Good. Devorah Redd DO JOB #: [id number] bk [Electronically Signed on: 2019 13:04 EDT] DEVORAH REDD DO [Verified on: 2019 13:04 EDT] DEVORAH REDD DO [Transcribed on: 2019 11:05 EDT] [facility] .Auto Diff 1on 09-27-2019 Auto [place] % 9 % Normal 02-19 [facility] Comment on above: Performed By: #### 1 [id number], [id number], [id number] #### [facility] (DEFAULT) [address] [place] [address] 62443 Baso Abs# 0.0 x10 Normal 0.0-0.2 [facility] Comment on above: Performed By: #### 1 [id number], 30384161, 3056164 #### [facility] (DEFAULT) [address] [place] [address] 48771 Basophils/100 WBC (Bld) 0.1 % Low 0.2-2.0 [facility] Comment on above: Performed By: #### 1 [id number], 92359022, 3479959 #### [facility] (DEFAULT) [address] [place] [address] 11459 Eos Abs# 0.2 x10 Normal 0.0-0.4 [facility] Comment on above: Performed By: #### 1 [id number], [id number], 5000450 #### [facility] (DEFAULT) [address] [place] [address] 74223 Eosinophils/100 WBC (Bld) 1.6 % Normal 0.9-4.0 [facility] Comment on above: Performed By: #### 1 [id number], 84682227, 5146767 #### [facility] (DEFAULT) [address] [place] [address] 62543 Lymphocytes (Bld) [#/Vol] 0.5 x10 Low 1.3-2.9 [facility] Comment on above: Performed By: #### 1 [id number], 39189947, 8992495 #### [facility] (DEFAULT) [address] [place] [address] 53535 Lymphocytes/100 WBC (Bld) 4 % Low 14-48 [facility] Comment on above: Performed By: #### 1 [id number], 72526905, 6233872 #### [facility] (DEFAULT) [address] [place] [address] 17333 [place] Abs# 1.2 x10 High 0.0-0.8 [facility] Comment on above: Performed By: #### 1 [id number], 25898600, 5554035 #### [facility] (DEFAULT) [address] [place] [address] Neut Abs# 11.5 x10 High 1.5-9.2 [facility] Comment on above: Performed By: #### 1 [id number], 29750291, 8086377 #### [facility] (DEFAULT) [address] [place] [address] 89572 Neutrophils/100 WBC (Bld) 86 % Normal 44-88 [facility] Comment on above: Performed By: #### 1 [id number], 14639581, 1395409 #### [facility] (DEFAULT) [address] [place] [address] 24684 C Urineon 09-27-2019 C Urine Urine Culture [...] <=4 Verified Tri/Sulf S <=2/38 Verified Normal [facility] Comment on above: Performed By: #### 7 [id number], [id number], [id number] #### [facility] (DEFAULT) [address] [place] [address] 98352 CBC w/ Auto Diffon 0 Erythrocyte distribution width (RBC) [Ratio] 14.5 % Normal 11.5-15.0 [facility] Comment on above: Performed By: #### 1 [id number], 04844699, 2996446 #### [facility] (DEFAULT) [address] [place] [address] Hematocrit (Bld) [Volume fraction] 39.2 % Normal 33.7-40.4 [facility] Comment on above: Performed By: #### 1 [id number], 46419152, 9578386 #### [facility] (DEFAULT) [address] [place] [address] Hemoglobin (Bld) [Mass/Vol] 12.8 g/dL Normal 11.3-15.9 [facility] Comment on above: Performed By: #### 1 [id number], 23893717, 0401988 #### [facility] (DEFAULT) [address] [place] [address] Man Diff? Auto Normal [facility] Comment on above: Performed By: #### 1 [id number], 33068787, 2881203 #### [facility] (DEFAULT) [address] [place] [address] 86732 MCH (RBC) [Entitic mass] 33 pg Normal 24-34 [facility] Comment on above: Performed By: #### 1 [id number], 23628273, 6735633 #### [facility] (DEFAULT) [address] [place] [address] 44551 MCHC (RBC) [Mass/Vol] 33 g/dL Normal 26-37 [facility] Comment on above: Performed By: #### 1 [id number], 13732838, 3461633 #### [facility] (DEFAULT) [address] [place] [address] 03068 MCV (RBC) [Entitic vol] 101 fL High 81-100 [facility] Comment on above: Performed By: #### 1 [id number], 25698381, 0600853 #### [facility] (DEFAULT) [address] [place] [address] 19438 Platelet mean volume (Bld) [Entitic vol] 9.8 fL Normal 6.3-10.2 [facility] Comment on above: Performed By: #### 1 [id number], 85552042, 0260521 #### [facility] (DEFAULT) [address] [place] [address] 50941 Platelets (Bld) [#/Vol] 266 x10 Normal 138-427 [facility] Comment on above: Performed By: #### 1 [id number], [id number], 7345711 #### [facility] (DEFAULT) [address] [place] [address] 06061 RBC (Bld) [#/Vol] 3.89 x10 Normal 3.70-5.30 [facility] Comment on above: Performed By: #### 1 [id number], 05602236, 4220754 #### [facility] (DEFAULT) [address] [place] [address] 88603 WBC (Bld) [#/Vol] 13.4 x10 [facility] Comment on above: Result Comment: Slid e Reviewed Performed By: #### 1 [id number], [id number], [id number] #### [facility] (DEFAULT) [address] [place] [address] 36631 Coding Summaryon 09-27-2019 Coding Summary CODING DATE: 020 [facility] STATUS: Home PAYOR: Medicare ADMIT DX: [...] Lawrence Date Saved: 09/27/2019 11:11 am Normal [facility] Extra Greenon 09-27-2019 Tube Collected Yes [facility] Comment on above: Performed By: #### 1 [id number], [id number], 3552263 #### [facility] (DEFAULT) [address] [place] [address] 94723 Nutrition Noteon 09-27-2019 Nutrition Note Pt eating poorly, av g less than 30% of meals per intake records. Supplements also taken sporadically. Suspect pain and constipation may be playing a role. No new wts. Last BM 09/23. Possible discharge later today. Will continue to follow and monitor need to adjust supplements ie. offer to make into a milkshake, [facility] Pharmacy Noteon 09-27-2019 Pharmacy Note [...] 09/27/2019 14:01 EDT] Virgie Santos [facility] Progress Note - Nurseon 08- Progress Note - Nurse 1800 one dulcolax suppository administered, will continue to monitor. [Electronically Signed on: 09/27/2019 18:03 EDT] Luli Mclain RN [Verified on: 09/27/2019 18:03 EDT] Mclain, Luli RN [facility] Progress Note - Nurse 1710 tramadol 50mg po administered for #10 left upper thigh pain , will continue to monitor. [Electronically Signed on: 09/27/2019 17:09 EDT] Luli Mclain RN [Verified on: 09/27/2019 17:09 EDT] Luli Mclain RN [facility] Progress Note-Physicianon Progress Note-Physician DATE [...] PROGNOSIS: Good. Devorah Redd DO JOB #: [id number] [Electronically Signed on: 2019 10:28 EDT] HERIBERTO DEVORAH BOYD [Verified on: 2019 10:28 EDT] DEVORAH REDD [Transcribed on: 09/27/2019 13:52 EDT] GDU Normal [facility] .Auto Diff 1on 09-26-2019 Auto [place] % 9 % Normal 1-12 [facility] Comment on above: Performed By: #### 1 [id number], [id number], [id number] #### [facility] (DEFAULT) [address] [place] [address] Baso Abs# 0.0 x10 Normal 0.0-0.2 [facility] Comment on above: Performed By: #### 1 [id number], 17403802,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 Atherosclerotic heart disease of [place] coronary artery without angina pectoris FINAL DX: PRINCIPAL: Z01.818 Encounter for other preprocedural examination SECONDARY: I10 Essential (primary) hypertension I25.10 Atherosclerotic heart disease of [place] coronary artery without angina pectoris K21.9 Gastro-esophageal [...] Date Saved: 09/13/2019 09:[address] [facility] Coding Summaryon 09-06-2019 Coding Summary CODING DATE: [facility] STATUS: Home PAYOR: Medicare APC DESCRIPTION 5733 Level 3 Minor Procedures ADMIT DX: REASON FOR VISIT DX: Z01.818 Encounter for other preprocedural examination I10 Essential (primary) hypertension I25.10 Atherosclerotic heart disease of [place] coronary artery without angina pectoris FINAL DX: PRINCIPAL: Z01.818 Encounter for other preprocedural examination SECONDARY: I10 Essential (primary) hypertension I25.10 Atherosclerotic heart disease of [place] coronary artery without angina pectoris K21.9 Gastro-esophageal [...] Date Saved: 09/06/2019 09:[address] [facility] Progress Note - Nurseon - Progress Note - Nurse chart reviewed per Dr Akbar anesthesiologist, and cleared for surgery on 09/25/2019 [Electronically Signed on: 09/04/2019 14:30 EDT] Nimco Albarado RN [Verified on: 09/04/2019 14:30 EDT] Nimco Albarado RN [facility] Progress Note - Nurse Xin at Dr Aydin rosario notified that pt has positive urine culture. [Electronically Signed on: 09/04/2019 13:37 EDT] Dionne Yun RN [Verified on: 09/04/2019 13:37 EDT] Dionne Yun RN [facility] Provider Orderson 09-04-2019 Provider Orders [id number] [facility] C Urineon 09-03-2019 C Urine Urine [...] <=4 Verified Tri/Sulf S <=2/38 Verified Normal [facility] Comment on above: Performed By: #### 1 [id number], [id number], [id number] #### [facility] (DEFAULT) [address] [place] [address] C MRSA Screenon 09-02-2019 C MRSA Screen Negative Normal [facility] Comment on above: Performed By: #### 1 [id number] #### [facility] (DEFAULT) [address] [place] [address] .Auto Diff 1on 09-01-2019 Auto [place] % 10 % Normal 1-12 [facility] Comment on above: Performed By: #### 7 [id number], [id number], [id number] #### [facility] (DEFAULT) [address] [place] [address] Baso Abs# 0.0 x10 Normal 0.0-0.2 [facility] Comment on above: Performed By: #### 7 [id number], [id number], [id number] #### [facility] (DEFAULT) [address] [place] [address] Basophils/100 WBC (Bld) 0.3 % Normal 0.2-2.0 [facility] Comment on above: Performed By: #### 7 [id number], [id number], [id number] #### [facility] (DEFAULT) [address] [place] [address] Eos Abs# 0.1 x10 Normal 0.0-0.4 [facility] Comment on above: Performed By: #### 7 824397, [id number], [id number] #### [facility] (DEFAULT) [address] [place] [address] Eosinophils/100 WBC (Bld) 0.9 % Normal 0.9-4.0 [facility] Comment on above: Performed By: #### 7 740784, [id number], [id number] #### [facility] (DEFAULT) [address] [place] [address] Lymphocytes (Bld) [#/Vol] 1.0 x10 Low 1.3-2.9 [facility] Comment on above: Performed By: #### 7 467276, [id number], [id number] #### [facility] (DEFAULT) [address] [place] [address] Lymphocytes/100 WBC (Bld) 10 % Low 14-48 [facility] Comment on above: Performed By: #### 7 074021, [id number], [id number] #### [facility] (DEFAULT) [address] [place] [address] [place] Abs# 1.0 x10 High 0.0-0.8 [facility] Comment on above: Performed By: #### 7 536632, [id number], [id number] #### [facility] (DEFAULT) [address] [place] [address] Neut Abs# 8.0 x10 Normal 1.5-9.2 [facility] Comment on above: Performed By: #### 7 361646, [id number], [id number] #### [facility] (DEFAULT) [address] [place] [address] Neutrophils/100 WBC (Bld) 79 % Normal 44-88 [facility] Comment on above: Performed By: #### 7 460245, [id number], [id number] #### [facility] (DEFAULT) [address] [place] [address] BMP Standardon 09-01-2019 eGFR Non AA 44 mL/min/1.73m2 [facility] Comment on above: Performed By: #### 7 165812, [id number], [id number] #### [facility] (DEFAULT) [address] [place] [address] eGFR AA 54 mL/min/1.73m2 [facility] Comment on above: Result Comment: Unemployment Insurance Director kody Kidney disease could be indicated at eGFRs of less than 60 ml/min/1.73m2. Kidney Failure is indicated at less than 15 ml/min/1.73m2 Performed By: #### 7 408839, [id number], [id number] #### [facility] (DEFAULT) [address] [place] [address] 95409 Anion gap [Moles/Vol] 15.0 mmol/L Normal 5.0-19.0 [facility] Comment on above: Performed By: #### 7 843021, [id number], [id number] #### [facility] (DEFAULT) [address] [place] [address] 92519 Calcium [Mass/Vol] 9.2 mg/dL Normal 8.9-10.3 [facility] Comment on above: Performed By: #### 7 172042, [id number], [id number] #### [facility] (DEFAULT) [address] [place] [address] 92793 Chloride [Moles/Vol] 101 mmol/L Normal 101-111 [facility] Comment on above: Performed By: #### 7 792711, [id number], [id number] #### [facility] (DEFAULT) [address] [place] [address] 65757 CO2 [Moles/Vol] 25 mmol/L Normal 21-32 [facility] Comment on above: Performed By: #### 7 242854, 85654556, [id number] #### [facility] (DEFAULT) [address] [place] [address] 86111 Creatinine [Mass/Vol] 1.17 mg/dL Normal 0.60-1.30 [facility] Comment on above: Performed By: #### 7 300023, [id number], [id number] #### [facility] (DEFAULT) [address] [place] [address] 31374 Glucose [Mass/Vol] 94.0 mg/dL Normal 74.0-118.0 [facility] Comment on above: Performed By: #### 7 896416, [id number], [id number] #### [facility] (DEFAULT) [address] [place] [address] Osmolality [Osmolality] 276 mOsm/L [facility] Comment on above: Performed By: #### 7 173149, 51799309, [id number] #### [facility] (DEFAULT) [address] [place] [address] 10753 Potassium [Moles/Vol] 4.0 mmol/L Normal 3.6-5.1 [facility] Comment on above: Performed By: #### 7 768623, [id number], [id number] #### [facility] (DEFAULT) [address] [place] [address] Sodium [Moles/Vol] 137.0 mmol/L Normal 136.0-144 . 0 [facility] Comment on above: Performed By: #### 7 694397, [id number], [id number] #### [facility] (DEFAULT) [address] [place] [address] Urea nitrogen [Mass/Vol] 20 mg/dL Normal 8-26 [facility] Comment on above: Performed By: #### 7 174787, [id number], [id number] #### [facility] (DEFAULT) [address] [place] [address] Urea nitrogen/Creatinine [Mass ratio] 17.0 mg/mg High 4.6-16.2 [facility] Comment on above: Performed By: #### 7 298074, [id number], [id number] #### [facility] (DEFAULT) [address] [place] [address] 49688 CBC w/ Auto Diffon 0 Erythrocyte distribution width (RBC) [Ratio] 13.9 % Normal 11.5-15.0 [facility] Comment on above: Performed By: #### 7 781860, 97726329, [id number] #### [facility] (DEFAULT) [address] [place] [address] Hematocrit (Bld) [Volume fraction] 38.5 % Normal 33.7-40.4 [facility] Comment on above: Performed By: #### 7 367998, 94112662, [id number] #### [facility] (DEFAULT) [address] [place] [address] Hemoglobin (Bld) [Mass/Vol] 12.6 g/dL Normal 11.3-15.9 [facility] Comment on above: Performed By: #### 7 201659, [id number], [id number] #### [facility] (DEFAULT) [address] [place] [address] 32567 Man Diff? Auto Normal [facility] Comment on above: Performed By: #### 7 043799, [id number], [id number] #### [facility] (DEFAULT) [address] [place] [address] 41174 MCH (RBC) [Entitic mass] 33 pg Normal 24-34 [facility] Comment on above: Performed By: #### 7 336698, 18622410, [id number] #### [facility] (DEFAULT) [address] [place] [address] 39918 MCHC (RBC) [Mass/Vol] 33 g/dL Normal 26-37 [facility] Comment on above: Performed By: #### 7 719608, 16425863, [id number] #### [facility] (DEFAULT) [address] [place] [address] MCV (RBC) [Entitic vol] 101 fL High 81-100 [facility] Comment on above: Performed By: #### 7 615767, 45060208, [id number] #### [facility] (DEFAULT) [address] [place] [address] 73357 Platelet mean volume (Bld) [Entitic vol] 9.5 fL Normal 6.3-10.2 [facility] Comment on above: Performed By: #### 7 880898, 85115892, [id number] #### [facility] (DEFAULT) [address] [place] [address] 63925 Platelets (Bld) [#/Vol] 292 x10 Normal 138-427 [facility] Comment on above: Performed By: #### 7 493882, 59321685, [id number] #### [facility] (DEFAULT) [address] [place] [address] 42279 RBC (Bld) [#/Vol] 3.82 x10 Normal 3.70-5.30 [facility] Comment on above: Performed By: #### 7 841180, 28608081, [id number] #### [facility] (DEFAULT) [address] [place] [address] 54167 WBC (Bld) [#/Vol] 10.1 x10 Normal 3.5-10.5 [facility] Comment on above: Performed By: #### 7 573877, 37777246, [id number] #### [facility] (DEFAULT) [address] [place] [address] UA [id number] 09-01-2019 RBC (U) [#/Vol] None Seen [facility] Comment on above: Order Comment: Urina lysis Microscopic order added on by Dis[employer] Expert Rules system. Performed By: #### 1 [id number], [id number], [id number] #### [facility] (DEFAULT) [address] [place] [address] 87915 UA Amorph. 1+ [facility] Comment on above: Order Comment: Urina lysis Microscopic order added on by [employer] Rules system. Performed By: #### 1 [id number], [id number], [id number] #### [facility] (DEFAULT) [address] [place] [address] 43400 UA Bacteria 4+ Normal [facility] Comment on above: Order Comment: Urina lysis Microscopic order added on by [employer] Rules system. Performed By: #### 1 [id number], 19190986, [id number] #### [facility] (DEFAULT) [address] [place] [address] 70436 UA Squam Epi Moderate Normal [facility] Comment on above: Order Comment: Urina lysis Microscopic order added on by [employer] Rules system. Performed By: #### 1 [id number], [id number], [id number] #### [facility] (DEFAULT) [address] [place] [address] 36742 UA WBC 15-[address] [facility] Comment on above: Order Comment: Urina lysis Microscopic order added on by [employer] Rules system. Performed By: #### 1 [id number], [id number], [id number] #### [facility] (DEFAULT) [address] [place] [address] 00448 UA w Culture if Ind Standard on 09-01-2019 Breakpoint UA Normal [facility] Comment on above: Performed By: #### 1 [id number], 34032346, [id number] #### [facility] (DEFAULT) [address] [place] [address] 73654 Color (U) Yellow Normal [facility] Comment on above: Performed By: #### 1 [id number], 11689197, [id number] #### [facility] (DEFAULT) [address] [place] [address] Culture? Yes Normal [facility] Comment on above: Performed By: #### 1 [id number], 39181366, [id number] #### [facility] (DEFAULT) [address] [place] [address] 71076 Glucose (U) [Mass/Vol] Negative Normal [facility] Comment on above: Performed By: #### 1 [id number], 94861267, 8245314 #### [facility] (DEFAULT) [address] [place] [address] 91208 Ketones Ql (U) Negative [facility] Comment on above: Performed By: #### 1 [id number], 18790976, 2979901 #### [facility] (DEFAULT) [address] [place] [address] 29185 Micro? Indicated [facility] Comment on above: Performed By: #### 1 [id number], 91643422, [id number] #### [facility] (DEFAULT) [address] [place] [address] 38674 UA Bilirubin Negative Normal [facility] Comment on above: Performed By: #### 1 [id number], 63944749, 5840783 #### [facility] (DEFAULT) [address] [place] [address] 26207 UA Blood TRACE Abnormal NEGATIVE [facility] Comment on above: Performed By: #### 1 [id number], 06536344, [id number] #### [facility] (DEFAULT) [address] [place] [address] 43010 UA Clarity CLEAR Normal CLEAR [facility] Comment on above: Performed By: #### 1 [id number], [id number], [id number] #### [facility] (DEFAULT) [address] [place] [address] 43634 UA Leuk Est MODERATE Abnormal NEGATIVE [facility] Comment on above: Performed By: #### 1 [id number], [id number], 7602309 #### [facility] (DEFAULT) [address] [place] [address] 24402 UA Nitrite Positive Abnormal NEGATIVE [facility] Comment on above: Performed By: #### 1 [id number], 86448140, [id number] #### [facility] (DEFAULT) [address] [place] [address] 27118 UA pH 5.5 Normal 5-8 [facility] Comment on above: Performed By: #### 1 [id number], 71512616, 1405538 #### [facility] (DEFAULT) [address] [place] [address] 95498 UA Protein Negative Normal NEGATIVE [facility] Comment on above: Performed By: #### 1 [id number], 46864864, [id number] #### [facility] (DEFAULT) [address] [place] [address] 24536 UA Spec Grav 1.025 Normal 1.001-1.[address] [place] [address] Comment on above: Performed By: #### 1 [id number], 74699330, 4363942 #### [facility] (DEFAULT) [address] [place] [address] 80001 UA Urobilinogen 0.2 mg/dL Normal 0.2-1.0 [facility] Comment on above: Performed By: #### 1 [id number], 08447201, [id number] #### [facility] (DEFAULT) [address] [place] [address] 05596 Urine Source Clean Catch Normal [facility] Comment on above: Performed By: #### 1 [id number], [id number], [id number] #### [facility] ([facility]) [address] [place] [address] JOINT PAIN INJECTIONon 09-06 JOINT PAIN INJECTION [facility] Department of Radiology [address] [place] [address] Patient Name: DELICIA HSU : [...] guidance. Electronically signed by:Christy Ochoa. Transcribed by: [email or web address], User Resident: Electronically Signed by: CHRISTY OCHOA @ 09/09/2018 05:57 PM Normal [facility] Comment on above: Order Comment: , Dr. Ochoa , Body Part: Hip , Side: LEFT , Dr. Ochoa , Body Part: Hip , Side: LEFT , , , Ordering Provider - HERMELINDO HILLMAN MD , CT 3D LOWER EXTREMITY WO CON TRAST LEFTon 08-02-2018 CT 3D LOWER EXTREMITY WO CONTRAST LEFT [facility] Department of Radiology [address] [place] [phone] Patient Name: DELICIA HSU : 1935 Sex: F Age: Race: White Pt. 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 MEDICARE NO PC REQ [...] arthritis. Electronically signed by:Coy Jerome. Transcribed by: [email or web address], User Resident: Electronically Signed by: COY JEROME @ 08/08/2018 02:20 PM Normal [facility] Comment on above: Order Comment: , Jessie perkins left hip healing HIP LEFT 1 OR 2 VWS WITH PEL VISon 03-18-2018 HIP LEFT 1 OR 2 VWS WITH PELVIS [facility] Department of Radiology [address] [place] [id number] Patient Name: DELICIA HSU : 1935 [...] study Electronically signed by:Coy Jerome. Transcribed by: [email or web address], User Resident: Electronically Signed by: COY JEROME @ 03/18/2018 02:19 PM Normal [facility] Comment on above: Order Comment: , , = ========= , Ordering Provider - MIRTHA VELÁSQUEZ PA-C , HIP LEFT 1 OR 2 VWS WITH PEL VISon 01-10-2018 HIP LEFT 1 OR 2 VWS WITH PELVIS [facility] Department of Radiology [address] [place] [phone] Patient Name: DELICIA HSU : 1935 Sex: F Age: Race: White Pt. 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 Electronically signed by:Manjit Whatley. Transcribed by: [email or web address], User Resident: Electronically Signed by: MANJIT WHATLEY @ 01/10/2018 04:38 PM Normal [facility] Comment on above: Order Comment: , Carmella ws (X-RAY, HIP): Radiologic Protocol , Views (X-RAY, HIP): Radiologic Protocol , , , Ordering Provider - MIRTHA VELÁSQUEZ PA-C , HIP LEFT 1 OR 2 VWS WITH PEL VISon 11-01-2017 HIP LEFT 1 OR 2 VWS WITH PELVIS [facility] Department of Radiology [address] [place] [phone] Patient Name: DELICIA HSU : 1935 [...] study. Electronically signed by:Gerson Rodriguez. Transcribed by: [email or web address], User Resident: Electronically Signed by: GERSON RODRIGUEZ @ 11/01/2017 03:25 PM Normal [facility] Comment on above: Order Comment: , Carmella ws (X-RAY, HIP): Radiologic Protocol , Views (X-RAY, HIP): Radiologic Protocol , , , Ordering Provider - MIRTHA VELÁSQUEZ PA-C , HIP LEFT 1 OR 2 VWS WITH PEL VISon 09-21-2017 HIP LEFT 1 OR 2 VWS WITH PELVIS [facility] Department of Radiology [address] [place] [phone] Patient Name: DELICIA HSU : 1935 Sex: F Age: Race: White Pt. 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 Transcribed by: [email or web address], User Resident: Electronically Signed by: COY JEROME @ 09/21/2017 03:27 PM Normal [facility] Comment on above: Order Comment: , , = ========= , Ordering Provider - MIRTHA DIDIER PA-C , Vital Signs Date Time Vital Sign Value Performing Clinician Facility 05-24-2023 13:35-0400 Body height 177.8 cm MD Gypsy Mcmahon Work Phone: [facility] 05-24-2023 13:35-0400 Body mass index (BMI) [Ratio] 18.8 kg/m2 MD Gypsy Mcmahon Work Phone: [facility] 05-24-2023 13:35-0400 Body temperature 97.7 [degF] MD Gypsy Mcmahon Work Phone: [facility] 05-24-2023 13:35-0400 Body weight 59.42 kg MD Gypsy Mcmahon Work Phone: [facility] 05-24-2023 13:35-0400 Diastolic blood pressure 54 mm[Hg] MD Gypsy Mcmahon Work Phone: [facility] 05-24-2023 13:35-0400 Heart rate 63 /min MD Gypsy Mcmahon Work Phone: [facility] 05-24-2023 13:35-0400 Systolic blood pressure 127 mm[Hg] MD Gypsy Mcmahon Work Phone: [facility] 05-21-2023 10:26-0400 Body height 177.8 cm MD Gypsy Mcmahon Work Phone: [facility] 05-21-2023 09:54-0400 Body mass index (BMI) [Ratio] 18.6 kg/m2 MD Gypsy Mcmahon Work Phone: [facility] 05-21-2023 09:54-0400 Body weight 58.96 kg MD Gypsy Mcmahon Work Phone: [facility] 05-05-2023 16:40-0400 Diastolic blood pressure 71 mm[Hg] MD Jacinto Max Work Phone: [facility] 05-05-2023 16:40-0400 Systolic blood pressure 170 mm[Hg] MD Jacinto Max Work Phone: [facility] 05-05-2023 16:36-0400 Body height 177.8 cm MD Jacinto Max Work Phone: [facility] 05-05-2023 16:36-0400 Body temperature 98.1 [degF] MD Jacinto Max Work Phone: [facility] 05-05-2023 16:36-0400 Body weight 59.87 kg MD Jacinto Max Work Phone: [facility] 05-05-2023 16:36-0400 Heart rate 71 /min MD Jacinto Max Work Phone: [facility] 05-05-2023 16:36-0400 Respiratory rate 18 /min MD Jacinto Max Work Phone: [facility] 05-05-2023 16:36-0400 SaO2% (BldA) [Mass fraction] 98 % MD Jacinto Max Work Phone: [facility] 04-15-2023 13:30-0500 Body height 167.64 cm MD Jacinto Max Work Phone: [facility] 04-15-2023 13:30-0500 Body mass index (BMI) [Ratio] 20.8 kg/m2 MD Jacinto Max Work Phone: [facility] 04-15-2023 13:30-0500 Body temperature 97.2 [degF] MD Jacinto Max Work Phone: [facility] 04-15-2023 13:30-0500 Body weight 58.57 kg MD Jacinto Max Work Phone: [facility] 04-15-2023 13:30-0500 Diastolic blood pressure 75 mm[Hg] MD Jacinto Max Work Phone: [facility] 04-15-2023 13:30-0500 Heart rate 60 /min MD Jacinto Max Work Phone: [facility] 04-15-2023 13:30-0500 Systolic blood pressure 165 mm[Hg] MD Jacinto Mxa Work Phone: [facility] 02-26-2023 10:00-0500 Body height 167.64 cm MD Jacinto Max Work Phone: [facility] 02-26-2023 10:00-0500 Diastolic blood pressure 76 mm[Hg] MD Jacinto Max Work Phone: [facility] 02-26-2023 10:00-0500 Systolic blood pressure 156 mm[Hg] MD Jacinto Max Work Phone: [facility] 02-25-2023 10:15-0500 Body height 175.26 cm MD Jacinto Max Work Phone: [facility] 02-25-2023 10:15-0500 Body weight 59.1 kg MD Jacinto Max Work Phone: [facility] 02-25-2023 10:02-0500 Diastolic blood pressure 74 mm[Hg] MD Jacinto Max Work Phone: [facility] 02-25-2023 10:02-0500 Heart rate 67 /min MD Jacinto Max Work Phone: [facility] 02-25-2023 10:02-0500 Systolic blood pressure 157 mm[Hg] MD Jacinto Max Work Phone: [facility] 02-18-2023 14:00-0500 Body height 167.64 cm Jacinto Max Other [facility] 02-18-2023 14:00-0500 Body mass index (BMI) [Ratio] 20.66 kg/m2 Jacinto Max Other Located [facility] [employer] Other 02-18-2023 14:00-0500 Body temperature 97.2 [degF] Jacinto Max Other [employer] [facility] [employer] Other 02-18-2023 14:00-0500 Body weight 58.06 kg Jacinto Max Other [facility] [employer] Other 02-18-2023 14:00-0500 Body weight 58.05 kg MD Jacinto Max Work Phone: [facility] 02-18-2023 14:00-0500 Diastolic blood pressure 66 mm[Hg] Jacinto Max Other [facility] 02-18-2023 14:00-0500 Systolic blood pressure 150 mm[Hg] Jacinto Max Other [facility] 02-16-2023 13:30-0500 Body height 167.64 cm Gypsy Mcmahon Other [facility] 02-16-2023 13:30-0500 Body mass index (BMI) [Ratio] 20.66 kg/m2 Gypsy Mcmahon Other Located Within [facility] [employer] Other 02-16-2023 13:30-0500 Body weight 58.06 kg Gypsy Mcmahon Other [facility] [employer] Other 02-16-2023 13:30-0500 Body weight 58.05 kg MD Jacinto Max Work Phone: [facility] 02-16-2023 13:30-0500 Diastolic blood pressure 68 mm[Hg] Gypsy Mcmahon Other [facility] 02-16-2023 13:30-0500 SaO2% (BldA) [Mass fraction] 96 % Gypsy Mcmahon Other [facility] [employer] Other 02-16-2023 13:30-0500 Systolic blood pressure 140 mm[Hg] Gypsy Mcmahon Other [facility] 02-04-2023 09:09-0500 Heart rate 84 /min MALATHI DEB [facility] 02-04-2023 09:09-0500 SaO2% (BldA) [Mass fraction] 95 % MALATHI DEB [facility] 02-04-2023 09:08-0500 Diastolic blood pressure 88 mm[Hg] MALATHI DEB [facility] 02-04-2023 09:08-0500 Mean blood pressure 121 mm[Hg] MALATHI DEB [facility] 02-04-2023 09:08-0500 Systolic blood pressure 188 mm[Hg] MALATHI DEB [facility] 02-04-2023 09:08-0500 Respiratory rate 20 /min MALATHI DEB [facility] 02-04-2023 09:08-0500 Body temperature 97.7 [degF] MALATHI DEB [facility] 02-03-2023 09:15-0500 Heart rate 77 /min MALATHI DEB [facility] 02-03-2023 09:15-0500 SaO2% (BldA) [Mass fraction] 97 % MALATHI DEB [facility] 02-03-2023 09:14-0500 Respiratory rate 18 /min MALATHI DEB [facility] 02-03-2023 09:14-0500 Diastolic blood pressure 97 mm[Hg] MALATHI DEB [facility] 02-03-2023 09:14-0500 Mean blood pressure 130 mm[Hg] MALATHI DEB [facility] 02-03-2023 09:14-0500 Systolic blood pressure 197 mm[Hg] MALATHI DEB [facility] 02-03-2023 09:13-0500 Body temperature 98.06 [degF] MALATHI DEB [facility] 02-02-2023 09:10-0500 Heart rate 75 /min MALATHI DEB [facility] 02-02-2023 09:10-0500 SaO2% (BldA) [Mass fraction] 93 % MALATHI DEB [facility] 02-02-2023 09:09-0500 Respiratory rate 20 /min MALATHI DEB [facility] 02-02-2023 09:08-0500 Diastolic blood pressure 87 mm[Hg] MALATHI DEB [facility] 02-02-2023 09:08-0500 Mean blood pressure 123 mm[Hg] MALATHI DEB [facility] 02-02-2023 09:08-0500 Systolic blood pressure 194 mm[Hg] MALATHI DEB [facility] 02-02-2023 09:08-0500 Body temperature 97.7 [degF] MALATHI DEB [facility] 02-01-2023 09:50-0500 Heart rate 77 /min MALATHI DEB [facility] 02-01-2023 09:50-0500 Mean blood pressure 115 mm[Hg] MALATHI DEB [facility] 02-01-2023 09:10-0500 Heart rate 84 /min MALATHI DEB [facility] 01-29-2023 11:26-0500 Heart rate 75 /min MALATHI DEB [facility] 01-29-2023 11:26-0500 SaO2% (BldA) [Mass fraction] 95 % MALATHI DEB [facility] 01-29-2023 11:26-0500 Respiratory rate 16 /min MALATHI DEB [facility] 01-29-2023 11:25-0500 Diastolic blood pressure 83 mm[Hg] MALATHI DEB [facility] 01-29-2023 11:25-0500 Mean blood pressure 108 mm[Hg] MALATHI DEB [facility] 01-29-2023 11:25-0500 Systolic blood pressure 158 mm[Hg] MALATHI DEB [facility] 01-29-2023 11:25-0500 Body temperature 98.06 [degF] MALATHI DEB [facility] 01-29-2023 10:54-0500 Heart rate 74 /min MALATHI DEB [facility] 01-29-2023 10:54-0500 SaO2% (BldA) [Mass fraction] 97 % MALATHI DEB [facility] 01-29-2023 10:54-0500 Respiratory rate 16 /min MALATHI DEB [facility] 01-29-2023 10:53-0500 Body temperature 97.52 [degF] MALATHI DEB [facility] 01-29-2023 10:53-0500 Diastolic blood pressure 84 mm[Hg] MALATHI DEB [facility] 01-29-2023 10:53-0500 Mean blood pressure 104 mm[Hg] MALATHI DEB [facility] 01-29-2023 10:53-0500 Systolic blood pressure 146 mm[Hg] MALATHI DEB [facility] 01-12-2023 13:30-0500 Body height 167.64 cm Hunter Brown Other [employer] Other 01-12-2023 13:30-0500 Body mass index (BMI) [Ratio] 22 kg/m2 Hunter Brown Other [employer] Other 01-12-2023 13:30-0500 Body weight 61.83 kg Hunter Brown Other [employer] Other 01-12-2023 13:30-0500 Diastolic blood pressure 60 mm[Hg] Hunter Brown Other [employer] Other 01-12-2023 13:30-0500 Systolic blood pressure 137 mm[Hg] Hunter Brown Other [employer] Other 01-05-2023 11:30-0500 Body height 167.64 cm Gypsy Mcmahon Other [employer] Other 01-05-2023 11:30-0500 Body mass index (BMI) [Ratio] 21.63 kg/m2 Gypsy Mcmahon Other [employer] Other 01-05-2023 11:30-0500 Body weight 60.78 kg Gypsy Mcmahon Other [employer] Other 01-05-2023 11:30-0500 Diastolic blood pressure 72 mm[Hg] Gypsy Mcmahon Other [employer] Other 01-05-2023 11:30-0500 Systolic blood pressure 162 mm[Hg] Gypsy Mcmahon Other [employer] Other 12-28-2022 13:30-0500 Body height 167.64 cm Malathi Velázquez Other [employer] Other 12-28-2022 13:30-0500 Body mass index (BMI) [Ratio] 19.98 kg/m2 Malathi Velázquez Other [employer] Other 12-28-2022 13:30-0500 Body weight 56.16 kg Malathi Melania Other [employer] Other 12-28-2022 13:30-0500 Diastolic blood pressure 78 mm[Hg] Malathi Melania Other [employer] Other 12-28-2022 13:30-0500 Systolic blood pressure 146 mm[Hg] Malathi Melania Other [employer] Other 12-15-2022 11:15-0500 Body height 167.64 cm Gypsy Mcmahon Other [employer] Other 12-15-2022 11:15-0500 Body mass index (BMI) [Ratio] 21.53 kg/m2 Gypsy Mcmahon Other [employer] Other 12-15-2022 11:15-0500 Body weight 60.51 kg Gypsy Mcmahon Other [employer] Other 12-15-2022 11:15-0500 Diastolic blood pressure 73 mm[Hg] Gypsy Mcmahon Other [employer] Other 12-15-2022 11:15-0500 Systolic blood pressure 178 mm[Hg] Gypsy Mcmahon Other [employer] Other 09-22-2022 14:14-0400 Blood Pressure Location MALATHI VIEIRA [facility] 09-22-2022 14:14-0400 Diastolic blood pressure 90 mm[Hg] MALATHI GUERRERORY [facility] 09-22-2022 14:14-0400 Heart rate 78 /min MALATHI VIEIRA [facility] 09-22-2022 14:14-0400 Systolic blood pressure 142 mm[Hg] MALATHI VIEIRA [facility] 09-01-2022 14:15-0400 Body height 167.64 cm Gypsy Mcmahon Other [employer] Other 09-01-2022 14:15-0400 Body mass index (BMI) [Ratio] 21.14 kg/m2 Gypsy Mcmahon Other [employer] Other 09-01-2022 14:15-0400 Body weight 59.42 kg Gypsy Mcmahon Other [employer] Other 09-01-2022 14:15-0400 Diastolic blood pressure 56 mm[Hg] Gypsy Mcmahon Other [employer] Other 09-01-2022 14:15-0400 Systolic blood pressure 132 mm[Hg] Gypsy Mcmahon Other [employer] Other 06-09-2022 13:42-0400 Diastolic blood pressure 71 mm[Hg] Marvin KWON [facility] 06-09-2022 13:42-0400 Heart rate 59 /min Marvin KWON [facility] 06-09-2022 13:42-0400 Systolic blood pressure 183 mm[Hg] Marvin KWON [facility] 04-24-2022 11:30-0400 Body height 167.64 cm Hunter Brown Other [employer] Other 04-24-2022 11:30-0400 Body mass index (BMI) [Ratio] 22.11 kg/m2 Hunter Brown Other [employer] Other 04-24-2022 11:30-0400 Body weight 62.14 kg Hunter Brown Other [employer] Other 04-24-2022 11:30-0400 Diastolic blood pressure 70 mm[Hg] Hunter Brown Other [employer] Other 04-24-2022 11:30-0400 Systolic blood pressure 159 mm[Hg] Hunter Brown Other [employer] Other 04-07-2022 14:15-0500 Body height 167.64 cm Gypsy Mcmahon Other [employer] Other 04-07-2022 14:15-0500 Body mass index (BMI) [Ratio] 21.79 kg/m2 Gypsy Mcmahon Other [employer] Other 04-07-2022 14:15-0500 Body weight 61.24 kg Gypsy Mcmahon Other [employer] Other 04-07-2022 14:15-0500 Diastolic blood pressure 62 mm[Hg] Gypsy Mcmahon Other [employer] Other 04-07-2022 14:15-0500 Systolic blood pressure 130 mm[Hg] Gypsy Mcmahon Other [employer] Other 03-11-2022 13:35-0500 Body temperature 97.5 [degF] MD Gypsy Mcmahon Work Phone: [facility] 03-11-2022 13:35-0500 Diastolic blood pressure 61 mm[Hg] MD Gypsy Mcmahon Work Phone: [facility] 03-11-2022 13:35-0500 Heart rate 60 /min MD Gypsy Mcmahon Work Phone: [facility] 03-11-2022 13:35-0500 Respiratory rate 18 /min MD Gypsy Mcmahon Work Phone: [facility] 03-11-2022 13:35-0500 SaO2% (BldA) [Mass fraction] 96 % MD Gypsy Mcmahon Work Phone: [facility] 03-11-2022 13:35-0500 Systolic blood pressure 135 mm[Hg] MD Gypsy Mcmahon Work Phone: [facility] 02-16-2022 10:45-0500 Body height 167.64 cm Gypsy Mcmahon Other [facility] [employer] Other 02-16-2022 10:45-0500 Body mass index (BMI) [Ratio] 21.46 kg/m2 Gypsy Mcmahon Other [employer] [facility] [employer] Other 02-16-2022 10:45-0500 Body weight 60.33 kg Gypsy Mcmahon Other [employer] Other 02-16-2022 10:45-0500 Diastolic blood pressure 70 mm[Hg] Gypsy Mcmahon Other [employer] Other 02-16-2022 10:45-0500 Systolic blood pressure 120 mm[Hg] Gypsy Mcmahon Other [employer] Other 02-11-2022 12:00-0500 Body height 172.72 cm Hunter Brown Other [employer] Other 02-11-2022 12:00-0500 Body mass index (BMI) [Ratio] 20.83 kg/m2 Hunter Brown Other [employer] Other 02-11-2022 12:00-0500 Body weight 62.14 kg Hunter Brown Other [employer] Other 02-11-2022 12:00-0500 Diastolic blood pressure 68 mm[Hg] Hunter Brown Other [employer] Other 02-11-2022 12:00-0500 Systolic blood pressure 144 mm[Hg] Hunter Brown Other [employer] Other 01-05-2022 10:30-0500 Body height 172.72 cm Hunter Brown Other [employer] Other 01-05-2022 10:30-0500 Body mass index (BMI) [Ratio] 22.04 kg/m2 Hunter Brown Other [employer] Other 01-05-2022 10:30-0500 Body weight 65.77 kg Hunter Brown Other [employer] Other 01-05-2022 10:30-0500 Diastolic blood pressure 78 mm[Hg] Hunter Brown Other [employer] Other 01-05-2022 10:30-0500 Systolic blood pressure 166 mm[Hg] Hunter Brown Other [employer] Other 03-27-2021 12:00-0500 Body height 172.72 cm Giana Griffiths Other [employer] Other 03-27-2021 12:00-0500 Body mass index (BMI) [Ratio] 22.96 kg/m2 Giana Griffiths Other [employer] Other 03-27-2021 12:00-0500 Body weight 68.49 kg Giana Griffiths Other [employer] Other 01-27-2021 10:45-0500 Body height 172.72 cm Giana Griffiths Other [employer] Other 01-27-2021 10:45-0500 Body mass index (BMI) [Ratio] 24.48 kg/m2 Giana Griffiths Other [employer] Other 01-27-2021 10:45-0500 Body weight 73.03 kg Giana Griffiths Other [employer] Other Encounters Encounter Date Encounter Type Care Provider Facility Start: 11-09-2023 End: 11-09-2023 ambulatory [facility] Start: 11-09-2023 End: 11-09-2023 Encounter for other preprocedural examination [facility] Start: 11-05-2023 End: 11-05-2023 Evaluation and management of inpatient [facility] Start: 10-27-2023 End: 10-27-2023 Evaluation and management of inpatient GYPSY MCMAHON [facility] Start: 10-27-2023 End: 10-27-2023 ambulatory [facility] Start: 10-20-2023 End: 10-20-2023 ambulatory [facility] Start: 06-23-2023 End: 06-23-2023 ambulatory [facility] Start: 06-17-2023 End: 06-17-2023 ambulatory [facility] Start: 06-15-2023 End: 06-15-2023 ambulatory MALATHI VIEIRA Facility:[facility] Start: 06-15-2023 End: 06-15-2023 Patient encounter procedure MALATHI VIEIRA [facility] Start: 05-28-2023 End: 05-28-2023 ambulatory Monie Gastelum [place] Facility:[facility] Start: 05-28-2023 End: 05-28-2023 ambulatory MD Gypsy Mcmahon Work Phone: [facility] Work Phone: Start: 05-28-2023 End: 05-28-2023 Patient encounter procedure MD Gypsy Mcmahon Work Phone: [facility]-CT Scan Main [place] Work Phone: Start: 05-25-2023 Non-patient / Non-visit MD Dontae Mcmahon Work Phone: [facility] [employer] Work Phone: Start: 05-24-2023 End: 05-24-2023 Patient encounter procedure MD Gypsy Mcmahon Work Phone: [facility] Work Phone: Start: 05-21-2023 End: 05-21-2023 Patient encounter procedure MD Gypsy Mcmahon Work Phone: [facility] G[facility] Work Phone: Start: 05-06-2023 Non-patient / Non-visit MD Dontae Mcmahon Work Phone: [facility] Work Phone: Start: 05-05-2023 End: 05-05-2023 Emergency department patient visit Marvin Garcia Facility:[facility] Start: 05-05-2023 End: 05-05-2023 Emergency department patient visit MD Jacinto Max Work Phone: [facility]-Emergency Room Work Phone: Start: 05-01-2023 Non-patient / Non-visit MD Jody Max Work Phone: [facility] [employer] Work Phone: Start: 04-15-2023 End: 04-15-2023 Patient encounter procedure MD Jacinto Max Work Phone: [facility] Infectious Disease Work Phone: Start: 04-06-2023 Non-patient / Non-visit MD Jody Max Work Phone: [facility] [employer] Work Phone: Start: 03-12-2023 End: 03-12-2023 ambulatory Jaicnto Max Other [employer] Other Start: 03-12-2023 Telephone encounter Jacinto BA [facility] Start: 03-11-2023 End: 03-11-2023 ambulatory Jacinto Max Other [employer] Other Start: 03-11-2023 Telephone encounter Jacinto Bustamante [facility] Start: 03-02-2023 End: 03-02-2023 ambulatory Gypsy Mcmahon Other [employer] Other Start: 03-02-2023 Telephone encounter Gypsy Mcmahon [facility] Start: 02-26-2023 End: 02-26-2023 Patient encounter procedure MD Jacinto Max Work Phone: [facility]- Start: 02-25-2023 End: 02-25-2023 ambulatory Jacinto Max Facility:[facility] Start: 02-25-2023 End: 02-25-2023 ambulatory MD Jacinto Max Work Phone: [facility] Work Phone: Start: 02-25-2023 End: 02-25-2023 Discharged Recurring MD Jacinto Max Work Phone: [facility]-Infusion Therapy - O/P Work Phone: Start: 02-18-2023 End: 02-18-2023 ambulatory Jacinto Max Other [employer] Other Start: 02-18-2023 Office outpatient ne w 45 minutes Jacinto Max [facility] Infectious Disease Start: 02-18-2023 End: 02-18-2023 Patient encounter procedure MD Jacinto Max Work Phone: [facility] Infectious Disease Work Phone: Start: 02-16-2023 End: 02-16-2023 ambulatory Gypsy Mcmahon Other [employer] Other Start: 02-16-2023 Office outpatient vi sit 15 minutes Gypsy Mcmahon [facility] Start: 02-16-2023 End: 02-16-2023 Patient encounter procedure MD Jacinto Max Work Phone: [facility] Work Phone: Start: 01-29-2023 End: 05-05-2023 ambulatory MALATHI GUERRERORY Facility:[facility] Start: 01-29-2023 End: 01-29-2023 Patient encounter procedure MALATHI Olvera DEB [facility] Start: 01-29-2023 End: 05-05-2023 Recurring MALATHI Wade GUERRERORY [facility] Start: 01-26-2023 End: 01-26-2023 Patient encounter procedure MALATHI Wade DEB [facility] Start: 01-26-2023 End: 01-26-2023 ambulatory MALATHI E DEB Loc[facility] [employer] Other Start: 01-26-2023 Telephone encounter Hunter brady [facility] Gastroenterology Start: 01-20-2023 End: 01-20-2023 ambulatory Hunter Brown Other [employer] Other Start: 01-20-2023 Telephone encounter Hunter Palomo [facility] Gastroenterology Start: 01-12-2023 End: 01-12-2023 ambulatory Hunter Brown Other [employer] Other Start: 01-12-2023 Office outpatient vi sit 25 minutes Hunter Brown [facility] Gastroenterology Start: 01-12-2023 End: 01-12-2023 Patient encounter procedure MD [facility] Gastroenterology Work Phone: Start: 01-11-2023 End: 01-11-2023 ambulatory Gypsy Mcmahon Other [employer] Other Start: 01-11-2023 Telephone encounter Gypsy Mcmahon [facility] Start: 01-05-2023 End: 01-05-2023 ambulatory Gypsy Mcmahon Other [employer] Other Start: 01-05-2023 Telephone encounter Gypsy Mcmahon [facility] Start: 01-05-2023 Transitional care manage srvc 14 day discharge Gypsy Mcmahon [facility] Start: 01-05-2023 End: 01-05-2023 Patient encounter procedure MD Jacinto Max Work Phone: [facility] Work Phone: Start: 12-30-2022 End: 12-30-2022 ambulatory Malathi Velázquez Other [employer] Other Start: 12-30-2022 Telephone encounter Malathi Boss [facility] Start: 12-28-2022 End: 12-28-2022 ambulatory Malathi Velázquez Other [employer] Other Start: 12-28-2022 Office outpatient vi sit 15 minutes Malathi Velázquez [facility] Start: 12-28-2022 End: 12-28-2022 Patient encounter procedure MD Jacinto Max Work Phone: [facility] Work Phone: Start: 12-15-2022 End: 12-15-2022 ambulatory Gypsy Mcmahon Other [employer] Other Start: 12-15-2022 Office outpatient vi sit 15 minutes Gypsy Mcmahon [facility] Start: 12-15-2022 Telephone encounter Gypsy Mcmahon [facility] Start: 12-15-2022 End: 12-15-2022 Patient encounter procedure MD Jacinto Max Work Phone: [facility] Work Phone: Start: 10-29-2022 End: 10-29-2022 ambulatory Hunter Brown Facility[facility] Start: 09-22-2022 End: 09-22-2022 ambulatory MALATHI VIEIRA Facility:[facility] Start: 09-22-2022 End: 09-22-2022 Patient encounter procedure MALATHI VIEIRA [facility] Start: 09-10-2022 End: 09-10-2022 ambulatory Jose G Ellington Other [employer] Other Start: 09-10-2022 Nursing evaluation o f patient and report Jose G Ellington [facility] Start: 09-08-2022 End: 09-08-2022 ambulatory Hunter Brown Other [employer] Other Start: 09-08-2022 Telephone encounter Hunter Palomo [facility] Start: 09-01-2022 End: 09-01-2022 ambulatory Gypsy Mcmahon Other [employer] Other Start: 09-01-2022 Office outpatient vi sit 15 minutes Gypsy Mcmahon [facility] Start: 08-27-2022 End: 08-27-2022 ambulatory Gypsy Mcmahon Other [employer] Other Start: 08-27-2022 Telephone encounter Gypsy Mcmahon [facility] Start: 06-09-2022 End: 06-09-2022 Patient encounter procedure Marvin KWON [facility] Start: 05-27-2022 End: 05-28-2022 ambulatory MALATHIALMAZ VIEIRA Facility:[facility] Start: 05-19-2022 End: 05-19-2022 Patient encounter procedure MALATHI VIEIRA [facility] Start: 05-14-2022 End: 05-14-2022 ambulatory Gypsy Mcmhaon Other [employer] Other Start: 05-14-2022 Telephone encounter Gypsy Mcmahon [facility] Start: 05-11-2022 End: 05-12-[address] GYPSY MCMAHON Facility:[facility] Start: 05-01-2022 (Televisit) Televisit Gypsy Mcmahon [facility] Start: 05-01-2022 End: 05-01-2022 ambulatory Gypsy Mcmahon Other [employer] Other Start: 05-01-2022 Telephone encounter Gypsy cMmahon [facility] Start: 04-28-2022 End: 04-29-[address] GYPSY MCMAHON Facility:[facility] Start: 04-24-2022 End: 04-24-2022 ambulatory Hunter Brown Other [employer] Other Start: 04-24-2022 Office outpatient vi sit 15 minutes Hunter Brown [facility] Gastroenterology Start: 04-16-2022 End: 04-16-2022 ambulatory Gypsy Mcmahon Other [employer] Other Start: 04-16-2022 Telephone encounter Gypsy Mcmahon [facility] Start: 04-14-2022 End: 04-14-[address] GYPSY MCMAHON Facility:[facility] Start: 04-07-2022 End: 04-07-2022 ambulatory Gypsy Mcmahon Other [employer] Other Start: 04-07-2022 Office outpatient vi sit 15 minutes Gypsy Mcmahon [facility] Start: 04-03-2022 End: 04-03-2022 ambulatory Gypsy Mcmahon Other [employer] Other Start: 04-03-2022 Telephone encounter Gypsy Mcmahon [facility] Start: 03-30-2022 End: 03-30-2022 Departed Referred MD Gypsy Mcmahon Work Phone: [facility]-Lab Main [place] Work Phone: Start: 03-30-2022 End: 03-30-2022 ambulatory MD Gypsy Mcmahon Work Phone: [facility] Work Phone: Start: 03-30-2022 Nursing evaluation o f patient and report Gypsy Mcmahon [facility] Start: 03-20-2022 End: 03-21-[address] GYPSY MCMAHON Facility:[facility] Start: 03-19-2022 End: 03-19-2022 ambulatory Hunter Brown Other [employer] Other Start: 03-19-2022 Telephone encounter Hunter Palomo [facility] Gastroenterology Start: 03-11-2022 Registered Recurring MD Gypsy Mcmahon Work Phone: [facility]-Infusion Therapy - O/P Work Phone: Start: 02-23-2022 End: 02-24-[address] GYPSY MCMAHON Facility:[facility] Start: 02-19-2022 End: 02-19-2022 ambulatory Gypsy Mcmahon Other [employer] Other Start: 02-19-2022 Telephone encounter Gypsy Mcmahon [facility] Start: 02-17-2022 End: 02-18-[address] GYPSY MCMAHON Facility:[facility] Start: 02-16-2022 End: 02-16-2022 ambulatory Gypsy Mcmahon Other [employer] Other Start: 02-16-2022 Office outpatient vi sit 15 minutes Gypsy Mcmahon [facility] Start: 02-16-2022 End: 02-16-2022 Departed Referred MD Gypsy Mcmahon Work Phone: [facility]-Lab Main [place] Work Phone: Start: 02-11-2022 End: 02-11-2022 ambulatory Hunter Brown Other [employer] Other Start: 02-11-2022 Office outpatient vi sit 15 minutes Hunter Brown [facility] Start: 02-11-2022 Telephone encounter Hunter brady [facility] Start: 01-26-2022 End: 01-27-[address] GYPSY MCMAHON Facility:[facility] Start: 01-15-2022 End: 01-16-[address] GYPSY MCMAHON Facility:H1 Start: 01-06-2022 End: 01-06-2022 ambulatory Hunter Brown Other [employer] Other Start: 01-06-2022 Telephone encounter Hunter brady [facility] Start: 01-05-2022 End: 01-06-2022 ambulatory CLAU NASCIMENTO Located Within [facility] [employer] Other Start: 01-05-2022 Office outpatient vi sit 25 minutes Hunter Brown [facility] Start: 12-27-2021 End: 12-27-[address] REY MONTGOMERY Facility:[facility] Start: 12-18-2021 End: 12-19-2021 ambulatory CLAU NASCIMENTO Facility:[facility] Start: 12-08-2021 End: 12-09-[address] GYPSY MCMAHON Facility:[facility] Start: 11-18-2021 End: 11-18-2021 ambulatory Hunter Brown Other [employer] Other Start: 11-18-2021 Telephone encounter Hunter Palomo [...] 08-18-2021 End: 08-18-2021 ambulatory Giana Griffiths Other [employer] Other Start: 08-18-2021 Telephone encounter Giana Griffiths [facility] Start: 08-12-2021 End: 08-12-[address] GYPSY MCMAHON Facility:[facility] Start: 04-22-2021 End: 04-22-2021 ambulatory Giana Griffiths Other [employer] Other Start: 04-22-2021 Telephone encounter Giana Griffiths [facility] Start: 03-27-2021 End: 03-27-2021 ambulatory Giana Griffiths Other [employer] Other Start: 03-27-2021 Office outpatient vi sit 25 minutes Giana Griffiths [facility] Start: 01-27-2021 End: 01-27-2021 ambulatory Giana Griffiths Other [employer] Other Start: 01-27-2021 Office outpatient vi sit 25 minutes Giana Rhoadesluis [facility] Start: 01-27-2021 [...] 03-30-2022 Bacteria identified in Urine by Culture [facility] Bacteria identified in Stool by Culture [facility] Bacteria identified in Urine by Culture [facility] Elastase.pancreatic [Mass/mass] in Stool [facility] Patient referral [facility] Work Phone: [facility] Immunizations Immunization Date Immunization Notes Care Provider Fa elaine 02-16-2022 Shingrix 50 MCG/0.5M L; Translations: [Shingrix 50 MCG/0.5ML] Hunter Brown Other [employer] Other 01-15-2022 influenza virus vaccine, unspecified formulation MALATHI VIEIRA [facility] 01-15-2022 SARS-CoV-2 (COVID-19 ) [id number] MALATHI VIEIRA [facility] 01-23-2021 SARS-CoV-2 (COVID-19 ) mRNA BNT-162b2 vax MALATHI DEB [facility] 01-06-2021 influenza virus vaccine, unspecified formulation MALATHI DEB [facility] 03-27-2020 SARS-CoV-2 (COVID-19 ) mRNA BNT-162b2 vax MALATHI DEB [facility] 03-04-2020 SARS-CoV-2 (COVID-19 ) mRNA BNT-162b2 vax MALATHI DEB [facility] 12-06-2019 influenza virus vaccine, unspecified formulation MALATHI DEB [facility] 12-14-2018 influenza virus vaccine, unspecified formulation MALATHI DEB [facility] 02-02-2018 influenza virus vaccine, unspecified formulation MALATHI DEB [facility] 11-08-2017 pneumococcal polysaccharide vaccine, 23 valent MALATHI DEB [facility] 11-02-2017 influenza virus vaccine, unspecified formulation MALATHI DEB [facility] 12-09-2016 influenza virus vaccine, unspecified formulation MALATHI DEB [facility] 12-02-2016 influenza virus vaccine, unspecified formulation MALATHI DEB [facility] 12-17-2015 influenza virus vaccine, unspecified formulation MALATHI DEB [facility] 10-10-2015 influenza virus vaccine, unspecified formulation MALATHI DEB [facility] 11-19-2014 influenza virus vaccine, unspecified formulation MALATHI DEB [facility] 11-09-2014 pneumococcal polysaccharide vaccine, 23 valent MALATHI DEB [facility] NEGATED: Highlighted row has not occurred!01-26-2023 influenza virus vaccine, unspecified formulation MALATHI DEB [facility] Payers Date Payer Category Payer Self-pay [id number] 1958 [facility]92 [id number] 1958 Medicare [id number] 2.1 [id number] 1936 Unknown [id number] 2.16.84 0.1.680845.3.579.2.593 1936 Unknown [id number] 2.16.84 0.1.469309.3.579.2.593 1936 Unknown [id number] 2.16.84 0.1.496468.3.579.2.593 1936 Unknown [id number] 2.16.84 0.1.298128.3.579.2.593 1936 Unknown [id number] 2.16.84 0.1.323462.3.579.2.593 1936 Unknown [id number] 2.16.84 0.1.495587.3.579.2.593 1936 Unknown [id number] 2.16.84 0.1.674621.3.579.2.593 1936 Unknown [id number] 2.16.84 0.1.268031.3.579.2.593 1936 Unknown [id number] 2.16.84 0.1.265469.3.579.2.593 1936 Unknown [id number] 2.16.84 0.1.537957.3.579.2.593 1936 Unknown [id number] 2.16.84 0.1.989533.3.579.2.593 1936 Unknown [id number] 2.16.84 0.1.284246.3.579.2.593 1936 Unknown [id number] 2.16.84 0.1.579622.3.579.2.593 1936 Unknown [id number] 2.16.84 0.1.783389.3.579.2.593 1936 Unknown [id number] 2.16.84 0.1.794726.3.579.2.593 1936 Unknown [id number] 2.16.84 0.1.876280.3.579.2.593 1936 Unknown [id number] 2.16.84 0.1.199667.3.579.2.593 1936 Unknown [id number] 2.16.84 0.1.535215.3.579.2.593 1936 Unknown [id number] 2.16.84 0.1.399602.3.579.2.593 1936 Unknown [id number] 2.16.84 0.1.383736.3.579.2.593 1936 Unknown [id number] 2.16.84 0.1.199366.3.579.2.593 1936 Unknown [id number] 2.16.8 40.1.695480.3.579.2.1286 1936 Unknown [id number] 2.16.8 40.1.740963.3.579.2.727 1936 Unknown [id number] 2.16.8 40.1.009137.3.579.2.727 1936 Unknown [id number] 2.16.8 40.1.283614.3.579.2.727 1936 Unknown [id number] 2.16.8 40.1.658708.3.579.2.727 1936 Unknown [id number] 2.16.8 40.1.242762.3.579.2.1286 1936 Unknown [id number] 2.16.8 40.1.684103.3.579.2.1286 1936 Unknown [id number] 2.16.8 40.1.560036.3.579.2.1286 1936 Unknown [id number] 2.16.8 40.1.268346.3.579.2.1286 1936 Unknown [id number] 2.16.8 40.1.476424.3.579.2.1286 Unknown [id number] 2.16.8 40.1.318829.3.579.2.531 Unknown [id number] 2.16.8 40.1.925851.3.579.2.531 Social History Date Type Detail Facility Unknown if ever smoked [employer] Other Sex Assigned At [facility] Start: 1935 Sex Assigned At Female [facility] Start: 05-19-2022 End: 06-09-2022 Tobacco smoking status Ex-smoker (finding) [facility] Start: 09-22-2022 Tobacco smoking status Never [facility] Start: 05-05-2023 Tobacco smoking stat [facility] Never smoked tobacco (finding) [facility] Functional Status Date Assessment Result Facility 01-26-2023 Functional Status N/A [facility] 09-22-2022 Functional Status N/A [facility] 06-09-2022 Functional Status N/A [facility] 05-19-2022 Functional Status N/A [facility] Clinical Notes 01-27-2021 to 11-09-2023 Note Date & Type Note Facility 11-09-2023 Note Pt here for a one ye ar follow up. Pt denies sob, chest pain, palpatations. Review of Systems Cardiovascular: Positive for leg swelling. Gastrointestinal: Positive for diarrhea. All other systems reviewed and are negative. [facility] 11-09-2023 Note Cardiovascular Medic ine [facility] SUBJECTIVE Chief Complaint Patient presents with Pre-op Exam Hypertension Coronary Artery Disease Delicia Hsu is a 88 y.o. female here for follow-up. HPI PMHx: CAD s/p CABG 1998, HTN, HLD She has been doing well since last seen. She is pending a vascular procedure with Dr. Kirkland. She may need femoral bypass surgery. She has some leg swelling but this is stable. Denies c/o CP, dyspnea, orthopnea, PND, dizziness/LH, palpitations, syncope. Patient Active Problem List Diagnosis Closed fracture of neck of femur (CMS/HCC) Osteoarthritis of hip PAD (peripheral artery disease) (CMS/HCC) Arthritis of right knee Internal derangement of right knee Complete tear of right rotator cuff Coronary artery disease with angina pectoris (CMS/HCC) Essential hypertension Hip bursitis, left Other abnormalities of gait and mobility Venous insufficiency (chronic) (peripheral) Anemia C. 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 Gastrointestinal: Positive for diarrhea. All other systems reviewed and are negative. OBJECTIVE Visit Vitals BP 164/66 Pulse 55 Ht 1.778 m (5' 10 ) Wt 62.1 kg (137 lb) SpO2 99% BMI 19.66 kg/m??? Smoking Status Former BSA 1.75 m??? Medications: Current Outpatient Medications: budesonide EC (Entocort EC) 3 mg 24 hr capsule, budesonide DR - ER 3 mg capsule,delayed,extended release, Disp: , Rfl: cholecalciferol, vitamin D3, 50 mcg (2,000 unit) capsule, Take 1 tablet by mouth in the morning., Disp: , Rfl: clopidogrel (Plavix) 75 mg tablet, TAKE 1 TABLET BY MOUTH ONCE DAILY DIRECTED, Disp: 90 tablet, Rfl: 3 pantoprazole (ProtoNix) 40 mg EC tablet, Take 40 mg by mouth in the morning., Disp: , Rfl: simvastatin (Zocor) 40 mg tablet, simvastatin 40 mg tablet, Disp: , Rfl: spironolactone (Aldactone) 50 mg tablet, Take 50 mg by mouth in the morning., Disp: , Rfl: miscellaneous medical supply (Blood Pressure Cuff) [facility], 1 kit in the morning and at bedtime. (Patient not taking: Reported on 11/09/2023), Disp: 1 each, Rfl: 0 nebivolol (Bystolic) 5 mg tablet, Take 1 tablet (5 mg) by mouth in the morning., Disp: 30 tablet, Rfl: 11 Physical Exam Vitals reviewed. Constitutional: Appearance: Normal appearance. She is normal weight. HENT: Head: Normocephalic and atraumatic. Right Ear: External ear normal. Left Ear: External ear normal. Eyes: Extraocular Movements: Extraocular movements intact. Conjunctiva/sclera: Conjunctivae normal. Pupils: Pupils are equal, round, and reactive to light. Neck: Vascular: No carotid bruit. Cardiovascular: Rate and Rhythm: Normal rate and regular rhythm. Pulses: Normal pulses. Heart sounds: Normal heart sounds. Pulmonary: Effort: Pulmonary effort is normal. Breath sounds: Normal breath sounds. Abdominal: General: Bowel sounds are normal. Palpations: Abdomen is soft. Musculoskeletal: Cervical back: Neck supple. Right lower leg: Edema present. Left lower leg: Edema present. Comments: +1 BLE edema Skin: General: Skin is warm and dry. Neurological: General: No focal deficit present. Mental Status: She is alert and oriented to person, place, and time. Psychiatric: Mood and Affect: Mood normal. Behavior: Behavior normal. Thought Content: Thought content normal. Judgment: Judgment normal. Labs: 10/27/2023 Sodium 134 - 146 mmol/L 141 Potassium, Bld 3.5 - 5.0 mmol/L 4.1 Chloride 98 - 109 mmol/L 103 CO2 22 - 32 mmol/L 27 Anion gap 5 - 15 mmol/L 11 BUN 5 - 27 mg/dL 24 Creatinine 0.40 - 1.00 mg/dL 1.15 High Comment: METHOD TRACEABLE TO IDMS STANDARD Glucose 65 - 99 mg/dL 70 Calcium 8.5 - 10.5 mg/dL 9.9 eGFR (CKD-EPI)non-race dependent >59 ml/min/1.73sq.m 46 Low 10/27/2023 Component Ref Range & Units 13 d ago White Blood Cells 4.0 - 11.0 X10E9/L 7.8 RBC count 3.80 - 5.20 X10E12/L 3.59 Low Hemoglobin 11.7 - 15.5 g/dL 11.7 Hematocrit 35 - 47 % 35.1 MCV 80 - 100 fL 98 MCH 27 - 34 pg 32.5 MCHC 32 - 36 g/dL 33.3 RDW 11.5 - 15.0 % 14.7 Platelets 150 - 450 X10E9/L 321 MPV 7 - 12 fL 7.6 % neutrophils % 70.5 % lymphocytes % 14.7 % monocy (more content not included)... 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 Preventative measures were discussed. Vitamin C kvha-chb-gvwuoqq recommended as well as topical Thera workx [...] n due to immunosuppression (ICD-10 - Z91.89) [employer] Other 01-09-2024 Evaluation note* Encounter Date Diagnosis [...] pain. Feb, Pain, unspecified (ICD-10 - R52) [employer] Other 12-19-2023 Hospital Discharge instructions Patient Education 01/26/2023 16:05:17 Urinary Tract Infection, Adult, Hkvj-th-Bfnu Urinary Tract Infection, Adult A urinary tract [...] Follow these instructions at home: Medicines Take rmph-ngz-shipmki and prescription medicines only as told by [...] provider. Document Revised: 09/06/2020 Document Reviewed: 09/06/2020 [employer] Patient Education 2022 [employer]. Follow Up Care 06/09/2022 14:50:19 With:DEB ZAZUETA, MALATHI Olvera, URL Address: [address] [facility] [place] [address] [phone] When: Unknown Comments:f/u in [place] [facility] Antibody 12-13-2023 Evaluation note* Encounter Date Diagnosis Assessment Notes Treatment Notes Treatment Clinical Notes Jan, Diarrhea (ICD-10 - R19.7) [employer] Other 12-05-2023 Evaluation note* Encounter Date Diagnosis [...] a day, we will re-test for C-diff [employer] Other 11-28-2023 Evaluation note* Encounter Date Diagnosis Assessment Notes Treatment Notes Treatment Clinical Notes Dec, Clostridium difficile colitis (ICD-10 - A04.72) Finish meds as prescribed. (divyaro, Rosalio) Followup w Dr. Brown as scheduled. Understands the c diff could recur. Followup as needed Discussed good nutrition and healthy diet. [employer] Other 11-20-2023 Evaluation note* Encounter Date Diagnosis Assessment Notes Treatment Notes Treatment Clinical Notes Dec, Diarrhea, unspecified type (ICD-10 - R19.7) Pt appears to be having secondary from viral infection. There is no abdominal pain on exam and pt is afebrile which is reassuring. C. diff infection is a possibility as she was recently treated [facility] antibitics for a UTI, will check [...] Pt understands and agrees with the plan. [employer] Other 11-07-2023 Evaluation note* Encounter Date Diagnosis Assessment Notes Treatment Notes Treatment Clinical Notes Dec, Frequent UTI (ICD-10 - N39.0) [employer] Other 11-07-2023 Evaluation note* Encounter Date Diagnosis [...] w Dr. Licea today. Consider PT at [facility] or [facility]. [employer] Other 08-15-2023 Hospital Discharge instructions Patient Education 09/22/2022 15:32:53 Urinary Tract Infection, Adult, Fdmp-bd-Negp Urinary Tract Infection, Adult A urinary tract [...] Follow these instructions at home: Medicines Take ivuk-dat-htsrfpz and prescription medicines only as told by [...] provider. Document Revised: 09/06/2020 Document Reviewed: 09/06/2020 [employer] Patient Education 2022 [employer]. Follow Up Care 09/22/2022 10:38:22 With:DEB ZAZUETA, MALATHI Olvera, URL Address: [address] [place] [address]. [place] [address] When: Unknown [facility] 08-03-2023 Evaluation note* Encounter Date Diagnosis Assessment Notes Treatment Notes Treatment Clinical Notes Sep, Dysuria (ICD-10 - R30.0) [employer] Other 08-01-2023 Evaluation note* Encounter Date Diagnosis Assessment Notes Treatment Notes Treatment Clinical Notes Sep, Microscopic colitis, unspecified microscopic colitis type (ICD-10 - K52.839) [employer] Other 07-25-2023 Evaluation note* Encounter Date Diagnosis Assessment Notes Treatment Notes Treatment Clinical Notes Aug, Frequent UTI (ICD-10 - N39.0) Continue estrogen cream. Review with Urology on her followup appt. Discussed causes of UTIs Aug, Lymphocytic colitis (ICD-10 - K52.832) Improved with GI at [facility]. 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 Barry. Reviewed medications and explained their purpose. [employer] Other 07-20-2023 Evaluation note* Encounter Date Diagnosis Assessment Notes Treatment Notes Treatment Clinical Notes Aug, Recurrent UTI (ICD-10 - N39.0) [employer] Other 05-02-2023 Hospital Discharge instructions Patient Education 06/09/2022 14:15:56 Urinary Tract Infection, Adult, Fqte-da-Zrfc Urinary Tract Infection, Adult A urinary tract [...] Follow these instructions at home: Medicines Take zcxy-fjp-cmmcbsx and prescription medicines only as told by [...] 09/06/2020 Document Reviewed: 09/06/2020 Elsevier Patient Education 2022 [employer]. Follow Up Care 06/01/2022 10:03:13 With:CHER KRISHNAN, JEFF Webb Address: [facility] [address] [place] [address] [phone] When:10/10/2022 [facility] 04-11-2023 Hospital Discharge instructions Patient Education [...] Treatment for this condition includes: Antibiotic medicine. Pmqi-zgr-epeeanz medicines to treat discomfort. Drinking enough water [...] Follow these instructions at home: Medicines Take tnwy-cel-vgyynsq and prescription medicines only as told by [...] 11/04/2005 Document Revised: 01/12/2019 Document Reviewed: 08/04/2018 [employer] Patient Education [employer]. Follow Up Care 04/20/2022 10:50:51 With:DEB ZAZUETA, MALATHI Olvera, URL Address: [address] [place] [phone] When: Unknown [facility] 04-06-2023 Evaluation note* Encounter Date Diagnosis Assessment Notes Treatment Notes Treatment Clinical Notes May, Frequent UTI (ICD-10 - N39.0) [employer] Other 03-24-2023 Evaluation note* Encounter Date Diagnosis [...] back this morning. antibiotic at her pharmacy. [employer] Other 03-17-2023 Evaluation note* Encounter Date Diagnosis Assessment Notes Treatment Notes Treatment Clinical Notes Apr, Lymphocytic colitis (ICD-10 - K52.832) Continue Entyvio as directed Continue Lotronex 0.5 mg 1/2 tablet daily Rto 4 months [employer] Other 03-09-2023 Evaluation note* Encounter Date Diagnosis Assessment Notes Treatment Notes Treatment Clinical Notes Apr, Acute cystitis without hematuria (ICD-10 - N30.00) [employer] Other 02-28-2023 Evaluation note* Encounter Date Diagnosis Assessment Notes Treatment Notes Treatment Clinical Notes Mar, Recurrent UTI (ICD-10 - N39.0) Discussed options. Will try estrogen cream for vaginal health. Denies personal history of female cancers. Will also set up w Urology Mar, Colitis (ICD-10 - K52.9) Further treatment with Dr. Brown w appt on 04/24 [employer] Other 02-20-2023 Evaluation note* Encounter Date Diagnosis Assessment Notes Treatment Notes Treatment Clinical Notes Mar, Dysuria (ICD-10 - R30.0) [employer] Other 01-09-2023 Evaluation note* Encounter Date Diagnosis Assessment Notes Treatment Notes Treatment Clinical Notes Feb, Acute cystitis without hematuria (ICD-10 - N30.00) Sent to [facility] for urine culture - will treat based on results. Feb, Encounter for immunization (ICD-10 - Z23) Feb, Microscopic colitis, unspecified microscopic colitis type (ICD-10 - K52.839) Keep appt w Dr. Brown. Discussed boost or other supplement to gain weight Feb, Gastric ulcer (ICD-10 - K25.9) Encouraged her to continue pantoprazole [employer] Other 01-04-2023 Evaluation note* Encounter Date Diagnosis Assessment Notes Treatment Notes Treatment Clinical Notes Feb, Lymphocytic colitis (ICD-10 - K52.832) Start Entyvio infusions every 8 weeks Continue Budesonide, Alosetron, Imodium, and Pepto for now until starting Entyvio. Pt to keep record of bowel movements - how many and consistency Follow up in 2 months Feb, Fecal incontinence (ICD-10 - R15.9) [employer] Other 11-28-2022 Evaluation note* Encounter Date Diagnosis [...] Pantoprazole as prescribed Okay to stop Sucralfate [employer] Other 09-25-2022 NoteOPERATIVE NOTE OPERATION DATE: 11/04/2021 [...] was taken to PACU in good condition.[facility] 03-27-2021 Evaluation note* Encounter Date Diagnosis Assessment Notes Treatment Notes Treatment Clinical Notes Mar, Microscopic colitis, unspecified microscopic colitis type (ICD-10 - K52.839) INCREASE COLESTIPOL TO 4 TABS AT LUNCHTIME DAILY IF NOT IMPROVED ON HIGHER DOSE PT TO CALL ON 03/31 FOR ALTERNATIVE PLAN Mar, Irritable bowel syndrome with diarrhea (ICD-10 - K58.0) [employer] Other 12-20-2021 Evaluation note* Encounter Date Diagnosis Assessment Notes Treatment Notes Treatment Clinical Notes Jan, Microscopic colitis, unspecified microscopic colitis type (ICD-10 - K52.839) START COLESIPOL 2 PO DAILY CONTINUE BUDESONIDE WITHOUT CHANGE 3 PO Q AM AND MAYBE CONSIDERING STOP THIS IF COLESTIPOL IS WORKING ENOUGH TO CONTROL HER SYMPTOMS [employer] Other 12-20-2021 Evaluation note* Encounter Date Diagnosis Assessment Notes Treatment Notes Treatment Clinical Notes Jan, Microscopic colitis, unspecified microscopic colitis type (ICD-10 - K52.839) [employer] [facility] [employer] Other Evaluation + Plan note No data available for this section [facility] evaluation + Plan note Future Appointments Appointment Date:10/27/2022 01:00:00 PM Scheduled Provider:MALATHI VIEIRA PA-C Location:[facility] Appointment Type:URO Office Visit [facility] Evaluation + Plan note Future Appointments Appointment Date:12/29/2022 01:00:00 PM Scheduled Provider:MALATHI VIEIRA PA-C Location:[facility] Appointment Type:URO Office Visit [facility] evaluation + Plan note Future Appointments Appointment Date:06/15/2023 02:00:00 PM Scheduled Provider:MALATHI VIEIRA PA-C Location:[facility] Appointment Type:URO Office Visit [facility] evaluation + Plan note Future Appointments Appointment Date:01/30/2023 10:30:00 AM Scheduled Provider: Location:[facility] Appointment Type:ASU IV Antibiotic (FT) Appointment Date:01/31/2023 10:30:00 AM Scheduled Provider: Location:[facility] Appointment Type:ASU IV Antibiotic (FT) Appointment Date:02/01/2023 10:30:00 AM Scheduled Provider: Location:[facility] Appointment Type:ASU IV Antibiotic (FT) Appointment Date:02/02/2023 10:30:00 AM Scheduled Provider: Location:[facility] Appointment Type:ASU IV Antibiotic (FT) Appointment Date:02/03/2023 10:30:00 AM Scheduled Provider: Location:[facility] Appointment Type:ASU IV Antibiotic (FT) Appointment Date:02/04/2023 10:30:00 AM Scheduled Provider: Location:[facility] Appointment Type:ASU IV Antibiotic (FT) Appointment Date:06/15/2023 02:00:00 PM Scheduled Provider:MALATHI VIEIRA PA-C Location:[facility] [place] Appointment Type:URO [facility] note[facility] InformationNort [place] Other Evaluation noteNo assessment information available [facility] Work Phone: Evaluation note* Diagnosis Onset Date Resolution Status Recurrent Clostridioides difficile diarrhea acute [facility] Work Phone: Evaluation note* Diagnosis Onset Date Resolution Status Recurrent Clostridioides difficile diarrhea acute Diarrhea acute Microscopic colitis acute Recurrent Clostridioides difficile diarrhea acute Recurrent UTI acute [facility] Work Phone: History general Narrative - Reported* Type Description Date Medical History HTN Medical History hyperlipidemia Medical History microscopic colitis Surgical History T&A Surgical History Quad by-pass Surgical History total hysterectomy Surgical History gall bladder Surgical History Cataracts Surgical History Right Knee Scope Surgical History Sphincterectomy Surgical History Left Rotator Scope Surgical History Hernia Repair 03/24/2012 Hospitalization History See Surgical Hx [employer] Other [employer] general Narrative - Reported* Type Description Date [...] See Surgical Hx Hospitalization History [facility] 12/2022 [employer] Other [employer] general Narrative - Reported* Type Description Date [...] Hospitalization History See Surgical Hx Hospitalization History [facility] 12/2022 [employer] Other [employer] general Narrative - Reported* Type Description Date [...] Hospitalization History See Surgical Hx Hospitalization History [facility] 12/2022 [employer] Other history general Narrative - Reported* Type [...] Hospitalization History See Surgical Hx Hospitalization History [facility] 12/2022 [employer] Other Hospital Discharge instructions No data available for this section [facility] No data available for this section [facility] Summary Purpose Family History No Family [...] 10:57am Hospital Course Note [facility] 2SOUT Clinical Discharge Summary PERSON INFORMATION Name DELICIA HSU Age 83 Years 1935 Sex FEMALE Language Occitan PCP Lisandro KRISHNAN, Gypsy Olvera Marital Status Med Service Med/Surg Acct# Arrival 09/25/2019 06:52:00 Visit Reason SURGERY - LEFT TOTAL HIP [facility] LOS Address: [address] [place] [address] Comment: PROVIDER INFORMATION VITALS INFORMATION Vital Sign [...] Recurrent UTI Reason for Referral Reason DUPLICATE [place] office - frequent UTIs. Diagnosis 1 Frequent UTI (N39.0) Referral Organization [facility] [employer] Referring Provider First Name Gypsy Referring Provider Last Name Lisandro Referring Provider [facility] [employer] Referred Organization [employer] [facility] Referred Provider eBau Hernandez Referred Address [address],[place],[address] Referred Provider Specialty Urology Referral Priority Routine General Notes Tatyana Bojorquez 01:56:52 PM >received today Tatyana Bojorquez 05/14/2022 02:02:41 PM >attachments made, notes locked, referral faxed Tatyana Bojorquez 05/14/2022 03:25:50 PM >DUPLICATE REFERRAL Reason *FU 04/28 [place] office - recurrent UTIs. Diagnosis 1 Recurrent UTI (N39.0 ) Referral Organization [facility] [employer] jah Referring Provider First Name Gypsy Referring Provider Last Name Lisandro Referring Provider [facility] [employer] Referred [facility] [employer] [facility] Referred Provider Gerson Juárez Referred Address [address],[place],[address] Referred Provider Specialty Urology Referral Priority Routine [...] and content) DATE CREATED AUTHOR 09/17/2018 [facility] DATE CREATED AUTHOR AUTHOR'S ORGANIZ ATION 10/30/2019 [facility] DATE CREATED AUTHOR AUTHOR'S ORGANIZ ATION 05/31/2022 [facility] DATE CREATED AUTHOR AUTHOR'S ORGANIZ ATION 05/30/2023 [facility] DATE CREATED AUTHOR AUTHOR'S ORGANIZ ATION 06/19/2023 [facility] DATE CREATED AUTHOR AUTHOR'S ORGANIZ ATION 07/29/2023 [facility] DATE CREATED AUTHOR AUTHOR'S ORGANIZ ATION 10/29/2023 [facility] DATE CREATED AUTHOR AUTHOR'S ORGANIZ ATION 11/08/2023 [facility] DATE CREATED AUTHOR AUTHOR'S ORGANIZ ATION 11/12/2023 [facility] REASON FOR VISIT (unrecogniz ed section and content) PT HERE WITH COMPLAINTS OF D IARRHEA ( PREVIOUS DR SOAS PATIENT)No InformationPATIENT HERE FOR 8 WEEK FOLLOW UP VISIT, SHE HAS ONE DIARRHEA/ LOOSE STOOL DAILY AND AT LEAST ONCE A WEEK SHE HAS URGENCY WITH ACCIDENTNo InformationNo InformationClinical Acute IllnessPrevious dr. griffiths patient here for complaints of diarrhea. 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 [employer] provides no warranty or guarantee of the accuracy or completeness of information in this document.
== END 2023-11-16 07:57 | disposition home or self-care (01) ==
LOC: CARD 07:56
PROVIDERS: PCP Family Medicine; Visit Provider Nurse Practitioner Family
DX: Z01.818 Encounter for other preprocedural examination (principal); I10 Essential (primary) hypertension; I25.10 Atherosclerotic heart disease of native coronary artery without angina pectoris
CPT/HCPCS: 93306

== ENCOUNTER 2023-11-30 14:10 | Outpatient (OUT) | payer MEDICARE, BC, SELFPAY | END 2023-11-30 14:11 | disposition home or self-care (01) | LOC: WC 14:10 | PROVIDERS: PCP Family Medicine; Visit Provider Physician Assistant | DX: I87.331 Chronic venous hypertension (idiopathic) with ulcer and inflammation of right lower extremity (principal); L97.812 Non-pressure chronic ulcer of other part of right lower leg with fat layer exposed | CPT/HCPCS: G0463 ==

== ENCOUNTER 2023-12-18 19:05 | Emergency (ER) | payer MEDICARE, BC, SELFPAY ==
--- OUTSIDE RECORDS SUMMARY | 2023-12-18 19:13 | XMS_ITS | CCD ---
Author Organization [facility] In[facility] Care Team Providers Care Guillotine Operator Name Role Phone Jian Giana Unavailable Hunter Brown Unavailable MD Gypsy Mcmahon Primary Care Provider [phone] MD Gypsy Mcmahon Attending Provider MD Hunter Brown Attending Provider Gypsy Mcmahon Unavailable GYPSY MCMAHON Primary Care Physician DR GYPSY MCMAHON Admitting Unavailable MCMAHON, DR GYPSY Olvera Consulting Unavailable MCMAHON, DR GYPSY Olvera Attending Unavailable MCMAHON, DR GYPSY Olvera Primary Care Unavailable VALENTINA, DR REY Bustamante Attending Unavailabl beba MONTGOMERY, DR REY Bustamante Consulting Unavailjhonatan MONTGOMERY, [...] GYPSY Olvera Primary Care Unavailable MCMAHON, DR GPYSY Olvera Admitting Unavailable MCMAHON, DR GYPSY Olvera Attending Unavailable MCMAHON, DR GYPSY Olvera Consulting Unavailable MCMAHON, DR GYPSY Olvera Primary Care Unavailable VALENTINA, DR ERY Bustamante Admitting Unavailabl e REINECK, DR REY [...] Jose G Ellington Unavailable Malathi Velázquez Unavailable [phone] MD Jacinto Max Attending Provider MD Jacinto Max Referring Provider [phone] MD Gypsy Mcmahon Primary Care Provider [phone] Jacinto Max Unavailable MD Jacinto Max Attending Provider [phone] MD Jacinto Max Referring Provider [phone] MD Gypsy Mcmahon Primary Care Provider DO Marvin Garcia Emergency Provider MD Gypsy Mcmahon Primary Care Provider [phone] DO Monie Wallace Attending Provider Jacinto Max Admitting Unavailable Jacinto Max Attending Unavailable Jacinto Max Referring Unavailable Gypsy Mcmahon E Primary Care Unavailable Madison, Monie Gastelum Attending Unavailable Monie Wallace Admitting Unavailable Mcmahon, Gypsy E Primary Care Unavailable Marvin Garcia Admitting Unavailable Marvin Garcia Attending Unavailable Lisandro, Gypsy E Primary Care Unavailable Hunter Brown Admitting UnavailHunter Grimes Attending Unavailabl e McmahonGypsy E Primary Care Unavailable ROYAL, MOHAMED F Attending Unavailable LISANDRO GYPSY E Referring Unavailable MCMAHON, GYPSY E Primary Care Unavailable DEBMALATHI RUBIO Attending Unavailable DEBMALATHI RUBIO Attending Unavailable DEB, MALATHI Olvera Referring Unavailable DEBMALATHI RUBIO Admitting Unavailable DEB, [...] Admitting Unavailable ROYAL, MOHAMED F Attending Unavailable LISANDRO, GYPSY E Primary Care Unavailable MCMAHON, GYPSY E Referring Unavailable MCMAHON, GYPSY E Primary Care Unavailable ROYAL, MOHAMED F Admitting Unavailable ROYAL, MOHAMED F Attending Unavailable MCMAHON, GYPSY E Primary Care Unavailable Gypsy Mcmahon MD Primary Care Provider Gypsy Mcmahon MD Primary Care Provider [phone] SUNNY INGRAM Attending Unavailable SUNNY INGRAM Referring Unavailable KYREE FLETCHER Attending Unavailable Allergies Allergy Classification Reported Allergen(s) Allergy Type Date of Onset Reaction(s) Facility (20 sources) Promethazine; Translations: [promethazine] Drug Allergy 02-04-20 13 anaphylaxis, Anaphylaxis (disorder), Anxiety, Unknown, Other [facility] (20 sources) histamines Drug allergy Unknown [facility] Other (14 sources) Histamine H2 Inhibitors; Translations: [Histamine H2 Inhibitors] Allergy to substance 07-16-19 13 Other (See Comments) [facility] (20 sources) levoFLOXacin; Translations: [levofloxacin] Drug Allergy 07-01-19 23 Tremor (finding), Other (See Comments) [facility] (1 source) diphenhydrAMINE Drug Allergy 04-20-19 20 [facility] (1 source) ezetimibe Drug Allergy 04-20-19 20 [facility] (1 source) Gemfibrozil Drug Allergy 04-20-19 20 [facility] (2 sources) Levamisole; Translations: [Phenergan] Drug Allergy 07-16-19 13 [facility] (4 sources) NSAIDs; Translations: [NSAIDS (NON-STEROIDAL ANTI-INFLAMMATORY DRUG)] Drug allergy (disorder) 04-20-19 20 [facility] (1 source) Nasal Decongestant Drug allergy (disorder) 04-20-19 20 [facility] (1 source) Darvocet-N 100 Drug allergy (disorder) 04-20-19 20 [facility] (11 sources) diphenhydrAMINE; Translations: [diphenhydramine] Drug Allergy jumpy,, Unknown [facility] (14 sources) Penicillin; Translations: [penicillin] Drug Allergy Eruption of skin (disorder) [facility] (9 sources) Penicillins; Translations: [Penicillins] Propensity to adverse reactions 02-25-19 24 Rash [facility] (2 sources) Antihistamines Allergy to substance 02-26-19 Unknown Reaction [facility] (1 source) Promethazine Drug Allergy 12-07-19 [facility] (6 sources) diphenhydrAMINE; Translations: [DIPHENHYDRAMINE HCL] Drug Allergy 10-14-19 Other (See Comments) [facility] (7 sources) ezetimibe; Translations: [EZETIMIBE] Drug Allergy 07-19-19 Other (See Comments), Unknown [facility] (7 sources) Gemfibrozil; Translations: [GEMFIBROZIL] Drug Allergy 07-19-19 Other (See Comments), Unknown [facility] (6 sources) ANTIHISTAMINE 12 HOUR; Translations: [ANTIHISTAMINE 12 HOUR] Propensity to adverse reactions to drug (disorder) 05-21-19 Other (See Comments) [facility] (6 sources) PROPOXYPHENE N-ACETAMINOPHEN; Translations: [PROPOXYPHENE N-ACETAMINOPHEN] Propensity to adverse reactions to drug (disorder) 10-14-19 Other (See Comments) [facility] (3 sources) Non-steroidal anti-inflammatory agent Propensity to adverse reactions to drug 10-14-19 Other (See Comments) [facility] (1 source) diphenhydrAMINE Drug Allergy 07-19-19 Unknown [facility] (2 sources) Histamine; Translations: [HISTAMINE] Drug Allergy 02-04-20 13 [facility] (1 source) Histamine H>2< antagonist Drug Intolerance 11-22-19 22 [facility] (1 source) Non-steroidal anti-inflammatory agent Drug Allergy 07-19-19 23 Unknown [facility] (1 source) Propoxyphene Drug Allergy 07-19-19 23 Unknown [facility] Medications Current Medications Medication Drug Class(es) Dates Sig (Normalized) Sig (Original) acetaminophen 500 mg oral tablet (5 sources) Start: 01-07-2022 take 2 tablets by mouth every six hours as needed for pain acetaminophen (TYLENOL EXTRA STRENGTH) 500 mg tablet Take 2 tablets (1,000 mg total) by mouth every 6 (six) hours as needed for pain. 30 tablet 01/07/2022 Active acetaminophen (T ylenol) 325 MG tablet every 6 (six) hours. Active acetaminophen 300 mg / codeine phosphate 60 mg oral tablet (3 sources) Opioid Agonist take 1 tablet by mouth every six hours as needed for pain acetaminophen-codeine (TYLENOL with CODEINE #4) 300-60 mg per tablet Indications: pain Take 1 tablet by mouth every 6 (six) hours as needed for pain Indications: pain. Active amoxicillin 500 mg oral capsule (3 sources) Penicillin-class Antibacterial Start: 2022 take 1 capsule by mouth every twelve hours Amoxicillin 500 MG 1 capsule Orally Twice a day for 7 days Apr, Active ascorbic acid 250 mg oral tablet (3 sources) Vitamin C take 1 tablet by mouth in the morning, then take 1 tablet by mouth at bedtime ascorbic acid, vitamin C, (VITAMIN C) 250 mg tablet Take 1 tablet (250 mg total) by mouth in the morning and 1 tablet (250 mg total) before bedtime. Active aspirin 81 mg delayed release oral tablet (13 sources) Platelet Aggregation Inhibitor, Nonsteroidal Anti-inflammatory Drug Start: 2023 End: 2023 take 1 tablet by mouth in the morning aspirin 81 mg Take 1 tablet (81 mg total) by mouth in the morning for 30 days. 30 tablet 11/19/2023 12/19/2023 Active Start: 12-06-2017 End: 04-15-2023 take 1 tablet by mouth once daily Aspirin (Aspir-81) 81 mg Tablet,Delayed Release (Dr/Ec) Discontinued 81 MG PO Daily December 06, 2017 12:00am April 15, 2023 2:36pm Aspirin 81 Activ e bismuth subsalicylate 17.5 mg/ml oral suspension (20 sources) Bismuth Start: 05-21-2023 Bismuth Subsal icylate (Pepto-Bismol) 262 mg/15 mL suspension Active 524 MG PO every 30 to 60 minutes May 21, 2023 12:00am do not exceed 8 doses in a 24 hour period Start: 09-22-2022 Pepto-Bismol R efills(s) 0 Start Date: 09/22/22 Status: Ordered Start: 09-22-2022 take 3 tablets by mo uth once daily as needed, then take 3 tablets by mouth once daily as needed bismuth subsalicylate (PEPTO-BISMOL ORAL) daily as needed. TAKES 3 TABS MORNING AND 3 TABS NIGHTLY 09/22/2022 Active bismuth subsalic ylate (Pepto Bismol) 262 MG chewable tablet Chew 524 mg in the morning and 524 mg at noon and 524 mg in the evening and 524 mg before bedtime. Chew before meals. Active Pepto-Bismol Act jamar budesonide 3 mg delayed [...] 06, 2017 12:00am May 21, 2023 10:14am take 1 capsule by [facility] every twenty-four hours in the morning budesonide EC (ENTOCORT EC) 3 mg 24 hr capsule Take 1 capsule (3 mg total) by mouth in the morning. Active cholecalciferol 0.05 mg oral tablet (6 sources) Vitamin D Start: 12-06-2017 take 1 tablet by mouth once daily Cholecalciferol (Vitamin D3) (Vitamin D3) 2,000 unit Tablet Active 2000 UNIT PO Daily December 06, 2017 12:00am take 1 tablet by mouth in the mo [facility] cholecalciferol (Vitamin D-3) 50 MCG (2000 UT) capsule Take 1 tablet by mouth in the morning. Active cholecalciferol, vitamin D3, (D3-50 CHOLECALCIFEROL ORAL) (3 sources) take 1 tablet by mouth in the morning cholecalciferol, vitamin D3, (D3-50 CHOLECALCIFEROL ORAL) Take 1 tablet by mouth in the morning. Active Cholestyramine Resin (1 source) Bile Acid Sequestrant Start: 024 take 1 dose by mouth twice daily Cholestyramine (With Sugar) (Questran) 4 gram powder Active 4 GM PO Twice daily 348.6 May 21, 2023 12:00am administer w/meal; avoid other meds within 1hr before or 4-6hr after dose ciprofloxacin 500 mg oral tablet (2 sources) Quinolone Antimicrobial Start: End: take 1 tablet by mouth every twelve hours Ciprofloxacin HCl 500 MG 1 tablet Orally every 12 hrs for 7 day(s) Feb, Active clopidogrel 75 mg oral tablet (20 sources) P2Y12 Platelet Inhibitor Start: take 1 tablet by mouth in the morning clopidogreL (PLAVIX) 75 mg tablet Indications: myocardial infarction prevention Take 1 tablet (75 mg total) by mouth in the morning. Indications: treatment to prevent a heart attack. 04/01/2023 Active Start: 09-22-2022 clopidogrel Or al, Refills(s) 0 [...] a day for 90 days Jan, Active estradiol 0.1 mg/ml vaginal cream (20 sources) Estrogen Start: 05-03-2023 estradioL (ESTRACE) 0.01 % (0.1 mg/gram) vaginal cream as needed. 05/03/2023 Active Start: 04-26-2023 Estradiol Acti ve 0 .ROUTE .COMPLEX 42.5 April 26, 2023 10:03am INSERT 1 GRAM VAGINALLY TWICE WEEKLY DIRECTED Start: 06-14-2022 End: 04-26-2023 Estradiol Discontinued 1 GM VAGINAL [...] Orally daily for 7 days Mar, Active sodium hypochlorite 1.25 mg/ml topical solution (3 sources) Start: 11-03-2023 H-CHLOR 12 0.1 25 % solution external solution APPLY TO RIGHT LOWER LEG WOUND DAILY 11/03/2023 Active L. Acidophilus/Bifid. Animalis (Daily Probiotic) 2.5 billion cell capsule (2 sources) Start: 04-15-2023 lactobacillus acidophilus [id number] unt oral tablet (2 sources) take 1 tablet by mouth every twelve hours Lactobacillus - 1 tablet twice a day Active lactobacillus acidophilus 0.05 mg / lactobacillus bulgaricus 0.05 mg oral tablet (4 sources) take 1 tablet by mouth every twelve hours Lactobacillus - 1 tablet twice a day Active lactobacillus acidophilus [id number] unt / pectin 100 mg oral tablet (3 sources) take 1 tablet by mouth once daily at breakfast acidophilus-pectin, citrus 25 million cell -100 mg tablet Take 1 tablet by mouth daily with breakfast. Active loperamide hydrochloride 2 mg oral capsule [...] 06, 2017 12:00am April 15, 2023 2:38pm take 1 tablet by ad th once as needed loperamide (IMODIUM A-D) 2 mg tablet Take 2 tablets (4 mg total) by mouth as needed. Active loperamide (Imod ium A-D) 2 MG tablet Take by mouth 4 (four) times a day as needed for diarrhea. Active Imodium A-D prn Active Imodium A-D Acti ve Magnesium (6 sources) Magnesium 400 MG 1 tablet twice a day Active magnesium oxide 400 mg oral tablet (3 sources) take 1 tablet by mouth every twenty-four hours Magnesium Oxide 400 MG 1 tablet as needed Orally Once a day Active melatonin 10 mg oral tablet (4 sources) take 1 tablet by mouth once daily melatonin 10 mg tablet Take 1 tablet by mouth nightly. Active menthol 0.04 mg/mg topical gel (1 source) Menthol, Topical Analgesic, (Biofreeze) 4 % gel Biofreeze Active metroNIDAZOLE 500 mg oral tablet (8 [...] For Her - as directed Orally Active Multiple Vitamins-Minerals (multivitamin with minerals) tablet (1 source) take 1 tablet by mouth in the morning Multiple Vitamins-Minerals (multivitamin with minerals) tablet Take 1 tablet by mouth in the morning. Active Multivitamin (Daily Multi-Vitamin) tablet (2 sources) Start: 04-15-19 24 take 1 tablet by mouth once daily Multivitamin (Daily Multi-Vitamin) tablet Active 1 TAB PO Daily April 15, 2023 1:00am Multivitamin preparation (7 sources) Start: 05-20-19 23 multivitamin Daily, Refill(s) 0 Start Date: 05/19/22 Status: Ordered mupirocin 0.02 mg/mg topical ointment (3 sources) RNA Synthetase Inhibitor Antibacterial Start: 08-30-19 24 mupirocin (BACTROBAN) 2 % ointment APPLY TO LEG WOUND DAILY 08/30/2023 Active naloxone (NARCAN) 4 mg/actuation spray,non-aerosol nasal spray (2 sources) Start: 11-19-19 24 naloxone (NARCAN) 4 mg/actuation spray,non-aerosol nasal spray Administer 1 spray (4 mg total) into alternating nostrils as needed for opioid reversal for up to 2 doses. 2 each 11/19/2023 Active Nature's Bounty Probiotic (4 sources) Start: 01-27-20 23 Nature's Bounty Probiotic Oral, Daily Start Date: 01/26/23 Status: Ordered nebivolol 5 mg oral tablet (3 sources) Start: 11-09-19 take 1 tablet by mouth in the morning nebivoloL (BYSTOLIC) 5 mg tablet Take 1 tablet (5 mg total) by mouth in the morning. 11/09/2023 Active nitrofurantoin, macrocrystals 25 mg / nitrofurantoin, monohydrate 75 mg oral capsule (3 sources) Nitrofuran Antibacterial Start: 05-20-19 take 1 mg by mouth twice daily Macrobid 100 mg Cap mg cap(s), Oral, BID, Refills(s) 0 Start Date: 05/19/22 Status: Ordered Start: 05-14-2022 take 1 capsule by [facility] every twelve hours Macrobid 100 MG 1 capsule with food Orally every 12 hrs for 7 days May, Active oxyCODONE hydrochloride 5 mg oral tablet (2 sources) Opioid Agonist Start: 11-19-2023 take 1 tablet by mouth every six hours as needed for pain oxyCODONE (ROXICODONE) 5 mg immediate release tablet Indications: 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 Max Daily Amount: 20 mg 4 tablet 11/19/2023 Active pantoprazole 20 mg delayed release oral tablet (20 sources) Proton Pump Inhibitor Start: 05-21-2023 take 20 mg by mouth once daily Pantoprazole Active 20 MG PO Daily May 21, 2023 12:00am Start: 11-04-2021 pantoprazole ( PROTONIX) 40 mg EC tablet Indications: gastroesophageal reflux disease Take 20 mg by mouth in the morning. Indications: gastroesophageal reflux disease. 11/04/2021 Active Start: 11-04-2021 End: 05-21-[address] Atkinson Re fills(s) 0 Start Date: 05/14/22 Status: Ordered simvastatin 40 mg oral tablet (20 sources) HMG-CoA Reductase Inhibitor Start: 05-10-2023 take 1 tablet by mouth once daily Simvastatin Active 0 .ROUTE .COMPLEX 90 May 10, 2023 4:20pm TAKE 1 TABLET BY MOUTH DAILY Start: 12-06-2017 End: 05-10-2023 simvastatin 40 mg Tab Refill s(s) 0 Start Date: 05/14/22 Status: Ordered spironolactone 25 mg oral tablet (20 sources) Aldosterone Antagonist Start: 05-14-2022 spironolactone 25 mg Tab Refills(s) 0 Start Date: 05/14/22 Status: Ordered take 2 tablets by mouth in the m orning spironolactone (ALDACTONE) 25 mg tablet Indications: hypertension Take 2 tablets (50 mg total) by mouth in the morning. Indications: high blood pressure. Active Spironolactone A ctive sulfamethoxazole 800 mg / trimethoprim 160 mg oral tablet (3 sources) Dihydrofolate Reductase Inhibitor Antibacterial, Sulfonamide Antimicrobial Start: 09-10-2022 take 1 tablet by mouth every twelve hours Bactrim DS 800-160 MG 1 tablet Orally Twice a day for 5 days Sep, Active Entyvio (20 sources) Integrin Receptor Antagonist Start: 05-19-2022 Entyvio mg, IV, Refills(s) 0 Start Date: 05/19/22 Status: Ordered Vedolizumab (ENT YVIO IV) Infuse into a venous catheter. Active Entyvio Active Vitamin D 1000 UNIT (6 [...] Refills(s) 0 Start Date: 05/19/22 Status: Ordered take 1 tablet by mouth in the mo rning zinc 50 MG tablet Take 50 mg by mouth in the morning. Active take 1 tablet by mouth in the mo rning zinc 50 mg tablet tablet Take 1 tablet (50 mg total) by mouth in the morning. Active Zinc Active Completed/Discontinued Medications Medication Drug Class(es) [...] take 0.5 tablet by mouth once daily atropine sulfate 0.025 mg / diphenoxylate hydrochloride [...] 19, 2023 12:00am May 24, 2023 1:33pm collagenase 0.25 unt/mg topical ointment (1 source) Collagen-specific Enzyme Start: 10-06-2023 End: 11-16-2023 SantyL ointment APPLY DAILY TO WOUND BED FOR 30 DAYS 10/06/2023 11/16/2023 Discontinued (Therapy completed) Cranberry preparation (10 sources) Non-Standardized Food Allergenic [...] procedure, # 2 cap(s), Refills(s) 0, Pharmacy: [facility]/pharmacy #[id number], 178, cm, 05/19/22 13:31:00 [...] 0 Start Date: 05/19/22 Status: Ordered Start: 09-24-2021 End: 11-16-2023 take 1 tablet by mouth every twenty-four hours in the morning metoprolol succinate XL (Toprol-XL) 50 MG 24 hr tablet Take 50 mg by mouth in the morning. 09/24/2021 Active Start: 12-06-2017 End: 04-15-2023 take 1 tablet [...] Start: 01-26-2023 take 1 capsule by mo [facility] every twenty-four hours Vancomycin HCl 250 [...] abdominal pain] Episodic Chronic ulcer of skin (15 sources) Non-pressure chronic ulcer of other part of right lower leg limited to breakdown of skin; Translations: [Non-pressure chronic ulcer of other part of left lower leg limited to breakdown of skin] Onset: 11-10-2021 12-09-2023 Chronic Complications of surgical procedures or medical care (1 source) Other complications following infusion, transfusion and therapeutic injection, initial encounter Episodic Coronary atherosclerosis and other heart disease (20 sources) Atherosclerotic heart disease of [place] coronary artery without angina pectoris; Translations: [Coronary arteriosclerosis] Onset: 03-03-2022 Chronic Coronary atherosclerosis and other heart disease (1 source) Presence of aortocoronary bypass graft; Translations: [PRESENCE AORTOCORONARY BYPASS GRAFT] Onset: 03-24-2022 Episodic Deficiency and other anemia (2 sources) Anemia; Translations: [Anemia, unspecified] Onset: 11-09-2023 11-18-2023 Episodic Disorders of lipid metabolism (10 sources) Hyperlipidemia; Translations: [Pure hypercholesterolemia, unspecified] Onset: 03-24-2022 05-14-2022 Chronic Diverticulosis and diverticulitis (20 sources) Diverticulum of large intestine without hemorrhage; Translations: [Diverticulosis of large intestine without perforation or abscess without bleeding] Chronic Esophageal disorders (3 sources) Gastro-esophageal reflux disease without esophagitis; Translations: [Gastroesophageal reflux disease] Onset: 03-24-2022 11-18-2023 Chronic Essential hypertension (20 sources) Hypertensive disorder; Translations: [Essential (primary) hypertension] Onset: 01-15-2022 05-14-2022 Chronic Gangrene (8 sources) Atherosclerosis of [place] arteries of extremities with gangrene, right leg; Translations: [Critical lower limb ischemia ] Onset: 10-14-2023 11-12-2023 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) Gastric ulcer; Translations: [Gastric ulcer, unspecified as acute or chronic, without hemorrhage or perforation] Onset: 11-10-2021 Chronic Genitourinary symptoms and ill-defined conditions (5 sources) Urge incontinence of urine; Translations: [Urge incontinence] Onset: 11-09-2023 01-27-2023 Chronic Genitourinary symptoms and ill-defined conditions (20 sources) Dysuria; Translations: [Sensation as if bladder still full] Onset: 12-27-2021 Episodic Headache; including migraine (4 sources) Headache; including migraine; Translations: [HEADACHE UNSPECIFIED] Onset: 03-20-2022 Immunity disorders (2 sources) Patient immunocompromised; Translations: [Immunodeficiency, unspecified] Onset: 11-18-2023 11-18-2023 Chronic Immunizations and screening for infectious disease (1 source) Encounter for immunization Episodic Intestinal infection (16 sources) Enterocolitis due to Clostridium difficile, not specified as recurrent; Translations: [Clostridium difficile colitis] Onset: 11-09-2023 Episodic Joint disorders and dislocations; trauma-related (3 sources) Derangement of right knee; Translations: [Unspecified internal derangement of right knee] Onset: 11-02-2022 11-18-2023 Chronic Nausea and vomiting (1 source) Nausea with [...] LOW LEG SEQ] Onset: 03-03-2022 Episodic Osteoarthritis (9 sources) Unspecified osteoarthritis, unspecified site; Translations: [Arthritis of right knee] Onset: 03-24-2022 11-18-2023 Chronic Osteoporosis (1 source) Age-related osteoporosis without current pathological fracture; Translations: [AGE-REL OSTEOPOR W/O CURR PATH FX] Onset: 02-04-2022 Chronic Other aftercare (1 source) Other nursing home (current) drug therapy; Translations: [OTH SKILLED NURSING CURRENT DRUG THERAPY] Onset: 03-24-2022 Episodic Other aftercare (1 source) Encounter for therapeutic drug level monitoring; Translations: [Encounter for therapeutic drug level monitoring] Onset: 10-27-2023 Episodic Other aftercare (1 source) Patient encounter status; Translations: [Encounter for therapeutic drug level monitoring] Onset: 12-15-2023 12-15-2023 Episodic Other circulatory disease (2 sources) Critical lower limb ischemia 12-09-2023 Episodic Other connective tissue disease (1 source) [...] ADAM LW EXT] Onset: 11-06-2021 Chronic Other diseases of veins and lymphatics (1 source) Chronic venous hypertension (idiopathic) with ulcer of unspecified lower extremity; Translations: [Chronic venous hypertension (idiopathic) with ulcer of unspecified lower extremity] Onset: 11-18-2023 Chronic Other diseases of veins and lymphatics (2 sources) 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; Translations: [Chronic venous hypertension (idiopathic) with ulcer of unspecified lower extremity] Onset: 11-18-2023 11-18-2023 Chronic Other gastrointestinal disorders (20 sources) Irritable bowel syndrome with diarrhea; Translations: [Irritable bowel syndrome with diarrhea] Chronic Other gastrointestinal disorders (1 source) Irritable bowel syndrome with diarrhea Onset: 03-27-2021 Resolved: 03-27-2021 Chronic Other gastrointestinal disorders (20 sources) Diarrhea; Translations: [Diarrhea, unspecified] Onset: 11-09-2023 04-06-2023 Episodic Other gastrointestinal disorders (20 sources) [...] Episodic Other nutritional; endocrine; and metabolic disorders (2 sources) Hypercalcemia; Translations: [Hypercalcemia] Onset: 11-09-2023 11-18-2023 Chronic Other nutritional; endocrine; and metabolic disorders (1 source) Abnormal weight loss; Translations: [Abnormal weight loss] Onset: 05-28-2023 Episodic Other skin disorders (1 source) Disorder of the skin and subcutaneous tissue, unspecified; Translations: [DISORDER SKIN AND SUBQ TISSUE UNS] Onset: 03-03-2022 Episodic Other skin disorders (5 sources) Ingrowing nail; Translations: [INGROWING NAIL] Onset: 12-18-2021 Episodic Other skin disorders (2 sources) Ingrowing nail; Translations: [Ingrowing nail] Onset: 11-18-2023 11-18-2023 Episodic Other upper respiratory infections (1 source) Chronic sinusitis, unspecified; Translations: [CHRONIC SINUSITIS UNSPECIFIED] Onset: 03-24-2022 Chronic Other upper respiratory infections (4 sources) Acute pharyngitis, unspecified; Translations: [Acute upper respiratory infection, unspecified] Onset: 10-16-2021 Episodic Otitis media and related conditions (1 source) Unspecified mastoiditis, right ear; Translations: [UNSPECIFIED MASTOIDITIS RIGHT EAR] Onset: 03-24-2022 Episodic Peripheral and visceral atherosclerosis (20 sources) Atherosclerosis of [place] arteries of right leg with ulceration of other part of lower leg; Translations: [Atherosclerosis of [place] arteries of left leg with ulceration of [...] 03-24-2022 Episodic Varicose veins of lower extremity (10 sources) 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; Translations: [Varicose veins of lower extremities with ulcer] Onset: 10-14-2023 10-14-2023 Episodic Viral infection (2 sources) COVID-19; [...] source) Dehydration; Translations: [DEHYDRATION] Onset: 11-10-2021 Episodic Fracture of neck of femur (hip) (3 sources) Closed fracture of neck of femur; Translations: [Fracture of unspecified part of neck of unspecified femur, initial encounter for closed fracture] Onset: 06-07-2017 11-18-2023 Episodic Gastritis and duodenitis (1 source) Gastritis, unspecified, without bleeding; Translations: [GASTRITIS UNS WITHOUT BLEEDING] Onset: 11-10-2021 Episodic Gastrointestinal hemorrhage (2 sources) Melena; Translations: [Gastrointestinal hemorrhage, unspecified] Onset: 11-10-2021 Episodic Malaise and fatigue (4 sources) Weakness; Translations: [WEAKNESS] Onset: 11-02-2021 Episodic Mood disorders (2 sources) Mood disorders Onset: 11-18-2023 11-18-2023 Other aftercare (1 source) halfway (current) 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; Translations: [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 ASPIRIN] Onset: 11-10-2021 Episodic Other connective tissue disease (3 sources) Full thickness rotator cuff tear; Translations: [Complete rotator cuff tear or rupture of right shoulder, not specified as traumatic] Onset: 11-02-2022 11-18-2023 Episodic Other connective tissue disease (3 sources) Bursitis of left hip; Translations: [Other bursitis of hip, left hip] Onset: 11-02-2022 11-18-2023 Episodic Other diseases of veins and lymphatics (1 source) Venous insufficiency (chronic) (peripheral); Translations: [VENOUS INSUFF CHRONIC PERIPHERAL] Onset: 11-10-2021 Episodic Other diseases of veins and lymphatics (2 sources) Peripheral venous insufficiency; Translations: [Venous insufficiency (chronic) (peripheral)] Onset: 11-11-2022 11-18-2023 Episodic Other nervous system disorders (3 sources) Finding related to ability to move; Translations: [Other abnormalities of gait and mobility] Onset: 11-02-2022 11-18-2023 Episodic Unclassified (7 sources) Finding of sensation of bladder 05-19-2022 Unclassified (1 source) CONTACT W/AND (SUSP) EXPOS COVID-19; Translations: [CONTACT W/AND (SUSP) EXPOS COVID-19] Onset: 08-12-2021 Results Test Name Value Interpretation Reference Range Facility 36on 12-16-2023 36 Spoke with patient's daughter Joanna. She said Vincent's BP is still all over the place. She's trying to get her mother to take her meds at the same time everyday, but this doesn't always happen. Bystolic 10mg daily was sent into [facility] on 12/01 so she will double the 5mg tablets for now. I asked her to make sure her mother is checking BP/HR 2 hours after medications. I told her I'd call back in 2 weeks or so to check on her numbers. She verbalized understanding. Normal [facility] 36on 11-30-2023 36 Please have her incr ease nebivolol to 10mg daily. Follow-up BP/HR phone call in 1-2 weeks. Please make sure she is checking her BP 2 hours after medications. Her ECHO showed normal pumping function. Some moderate left sided enlargement from elevated blood pressure. Also noted some moderately leaky tricuspid valve, and mild to mod leaky mitral valve that we will just monitor with routine ECHOs. Thanks! Normal [facility] BASIC METABOLIC PANLon 11-18 Anion gap [Moles/Vol] 9 mmol/L Normal 5-15 [facility] Comment on above: Performed By: #### B MP, CBC #### [facility] ([id number]) [address], [address] [place] [address] Calcium [Mass/Vol] 9.3 mg/dL Normal 8.5-10.5 [facility] Comment on above: Performed By: #### B MP, CBC #### [facility] ([id number]) [address], [address] [place] [address] Chloride [Moles/Vol] 106 mmol/L Normal 98-109 [facility] Comment on above: Performed By: #### B THERESA, CBC #### [facility] ([id number]) [address], [address] [place] [address] CO2 [Moles/Vol] 22 mmol/L Normal 22-32 [facility] Comment on above: Performed By: #### Freedom CARDENAS, CBC #### [facility] ([id number]) [address], [address] [place] [address] Creatinine [Mass/Vol] 1.14 mg/dL High 0.40-1.00 [facility] Comment on above: Result Comment: METH OD TRACEABLE TO IDMS STANDARD Performed By: #### Freedom CARDENAS, CBC #### [facility] ([id number]) [address], [address] [place] [address] GFR/1.73 sq M.predicted among non-blacks MDRD (S/P/Bld) [Vol rate/Area] 47 mL/min/{1.73_m2} Low >59 [facility] Comment on above: Result Comment: Reported eGFR is based on the CKD-EPI 2020 equation that does not use a race coefficient. Performed By: #### Freedom CARDENAS, CBC #### [facility] ([id number]) [address], [address] [place] [address] Glucose [Mass/Vol] 125 mg/dL High 65-99 [facility] Comment on above: Performed By: #### Freedom CARDENAS, CBC #### [facility] ([id number]) [address], [address] [place] [address] Potassium [Moles/Vol] 5.7 mmol/L High 3.5-5.0 [facility] Comment on above: Performed By: #### Freedom CARDENAS, CBC #### [facility] ([id number]) [address], [address] [place] [address] Sodium [Moles/Vol] 137 mmol/L Normal 134-146 [facility] Comment on above: Performed By: #### B MP, CBC #### [facility] ([id number]) [address], [address] [place] [address] Urea nitrogen [Mass/Vol] 32 mg/dL High 5-27 [facility] Comment on above: Performed By: #### B MP, CBC #### [facility] ([id number]) [address], [address] [place] [address] COMPLETE BLOOD COUNTon 11-18 Erythrocyte distribution width (RBC) [Ratio] 15.0 % Normal 11.5-15.0 [facility] Comment on above: Performed By: #### B MP, CBC #### [facility] ([id number]) [address], [address] [place] [address] Hematocrit (Bld) [Volume fraction] 33.0 % Low 35-47 [facility] Comment on above: Performed By: #### B MP, CBC #### [facility] ([id number]) [address], [address] [place] [address] Hemoglobin (Bld) [Mass/Vol] 11.6 g/dL Low 11.7-15.5 [facility] Comment on above: Performed By: #### B MP, CBC #### [facility] ([id number]) [address], [address] [place] [address] MCH (RBC) [Entitic mass] 34.4 pg High 27-34 [facility] Comment on above: Performed By: #### B MP, CBC #### [facility] ([id number]) [address], [address] [place] [address] MCHC (RBC) [Mass/Vol] 35.1 g/dL Normal 32-36 [facility] Comment on above: Performed By: #### B MP, CBC #### [facility] ([id number]) [address] [address] [place] [address] MCV (RBC) [Entitic vol] 98 fL Normal 80-100 [facility] Comment on above: Performed By: #### B MP, CBC #### [facility] ([id number]) [address] [address] [place] [address] Platelet mean volume (Bld) [Entitic vol] 8.4 fL Normal 7-12 [facility] Comment on above: Performed By: #### B MP, CBC #### [facility] ([id number]) [address] [address] Platelets (Bld) [#/Vol] 227 10*3/uL Normal 150-450 [facility] Comment on above: Performed By: #### B MP, CBC #### [facility] ([id number]) [address] [address] [place] [address] RBC COUNT 3.36 X10E12/L Low 3.80-5.20 [facility] Comment on above: Performed By: #### B MP, CBC #### [facility] ([id number]) [address] [address] WBC (Bld) [#/Vol] 6.1 10*3/uL Normal 4.0-11.0 [facility] Comment on above: Performed By: #### B MP, CBC #### [facility] ([id number]) [address] [address] POC BUN CREATon 11-18-2023 Creatinine [Mass/Vol] 1.3 mg/dL High 0.4-1.0 [facility] Comment on above: Result Comment: METH OD TRACEABLE TO IDMS STANDARD Performed By: #### I BC #### [facility] ([id number]) [address] [place] [address] GFR/1.73 sq M.predicted among non-blacks MDRD (S/P/Bld) [Vol rate/Area] 40 mL/min/{1.73_m2} Low >59 [facility] Comment on above: Result Comment: Reported eGFR is based on the CKD-EPI 2020 equation that does not use a race coefficient. Performed By: #### I BC #### [facility] ([id number]) [address] [place] [address] Urea nitrogen [Mass/Vol] 32 mg/dL High 6-27 [facility] Comment on above: Performed By: #### I BC #### [facility] ([id number]) [address] [place] [address] RAPID CARDIACon 11-18-2023 AKILAH'S TEST Normal [facility] Comment on above: Performed By: #### A FAB5 #### [facility] ([id number]) [address] [place] [address] BASE,DEFICIT 1.2 MMOL/L Normal 0.0-2.0 [facility] Comment on above: Performed By: #### A FAB5 #### [facility] ([id number]) [address] [place] [address] Body temperature 98.6 [degF] Normal 37.0 [facility] Comment on above: Performed By: #### A FAB5 #### [facility] ([id number]) [address] [place] [address] Glucose [Mass/Vol] 96 mg/dL Normal 65-99 [facility] Comment on above: Performed By: #### A FAB5 #### [facility] ([id number]) [address] [place] [address] HCO3 (Bld) [Moles/Vol] 23.5 mmol/L Normal 22-26 [facility] Comment on above: Performed By: #### A FAB5 #### [facility] ([id number]) [address] [place] [address] Hematocrit (Bld) [Volume fraction] 31 % Low 35-47 [facility] Comment on above: Performed By: #### A FAB5 #### [facility] ([id number]) [address] [place] [address] Hemoglobin (Bld) [Mass/Vol] 10.2 g/dL Low 11.7-15.5 [facility] Comment on above: Performed By: #### A FAB5 #### [facility] ([id number]) [address] [place] [address] INSP. O2 CONC. 100 % Normal [facility] Comment on above: Performed By: #### A FAB5 #### [facility] ([id number]) [address] [place] [address] IONIZED CALCIUM 5.2 mg/dL Normal 4.5-5.3 [facility] Comment on above: Performed By: #### A FAB5 #### [facility] ([id number]) [address] [place] [address] Oxygen (Bld) [Partial pressure] 270 mm[Hg] High 80-100 [facility] Comment on above: Performed By: #### A FAB5 #### [facility] ([id number]) [address] [place] [address] Oxygen saturation in Blood 100.2 % Normal >90 [facility] Comment on above: Performed By: #### A FAB5 #### [facility] ([id number]) [address] [place] [address] PCO2 37.2 MMHG Normal 35-45 [facility] Comment on above: Performed By: #### A FAB5 #### [facility] ([id number]) [address] [place] [address] pH (Bld) 7.408 [pH] Normal 7.350-7.45 0 [facility] Comment on above: Performed By: #### A FAB5 #### [facility] ([id number]) [address] [place] [address] Potassium [Moles/Vol] 4.3 mmol/L Normal 3.5-5.0 [facility] Comment on above: Performed By: #### A FAB5 #### [facility] ([id number]) [address] [place] [address] SAMPLE SITE SABA Normal [facility] Comment on above: Performed By: #### A FAB5 #### [facility] ([id number]) [address] [place] [address] SAMPLE TYPE Arterial Normal [facility] Comment on above: Performed By: #### A FAB5 #### [facility] ([id number]) [address] [place] [address] Office Visiton 11-09-2023 Follow-up visit [id number] Langley 1935 Provider Department Center 11/09/2023 KYREE PANTOJA ROSA ISELA Hunt Family History Problem Relation Age of Onset Aneurysm Mother Heart attack Father Family Status - Relation Status Age at Mother Father Level of Service:95492 PA OFFICE/OUTPATIENT ESTABLISHED MOD MDM 30 MIN Reason for Visit and Comments: Pre-op Exam [032555] Hypertension [635835] Coronary Artery Disease [187] Normal [facility] Telephoneon 11-09-2023 Telephone [id number] Langley 1935 Provider Department Center 11/09/2023 NATALIYA ERNST ROSA ISELA Hunt Family History Problem Relation Age of Onset Aneurysm Mother Heart attack Father Family Status - Relation Status Age at Mother Father Normal [facility] POC BUN CREATon 11-05-2023 Creatinine [Mass/Vol] 1.6 mg/dL High 0.4-1.0 [facility] Comment on above: Result Comment: METH OD TRACEABLE TO IDMS STANDARD Performed By: #### I BC #### [facility] ([id number]) [address] [place] [address] GFR/1.73 sq M.predicted among non-blacks MDRD (S/P/Bld) [Vol rate/Area] 31 mL/min/{1.73_m2} Low >59 [facility] Comment on above: Result Comment: Reported eGFR is based on the CKD-EPI 2020 equation that does not use a race coefficient. Performed By: #### I BC #### [facility] ([id number]) [address] [place] [address] Urea nitrogen [Mass/Vol] 25 mg/dL Normal 6-27 [facility] Comment on above: Performed By: #### I BC #### [facility] ([id number]) [address] [place] [address] BASIC METABOLIC PANLon 10-26 Anion gap [Moles/Vol] 11 mmol/L Normal 5-15 [facility] Comment on above: Performed By: #### P INR, 65888-1 #### [facility] ([id number]) [address] [place] [address] #### CBCA, BMP #### [facility] ([id number]) [address], [address] [place] [address] Calcium [Mass/Vol] 9.9 mg/dL Normal 8.5-10.5 [facility] Comment on above: Performed By: #### P INR, 57096-4 #### [facility] ([id number]) [address] [place] [address] #### CBCA, BMP #### [facility] ([id number]) [address] [place] [address] Chloride [Moles/Vol] 103 mmol/L Normal 98-109 [facility] Comment on above: Performed By: #### P INR, 52908-8 #### [facility] ([id number]) [address] [place] [address] #### CBCA, BMP #### [facility] ([id number]) [address] [facility] [place] [address] CO2 [Moles/Vol] 27 mmol/L Normal 22-32 [facility] Comment on above: Performed By: #### P INR, 37186-4 #### [facility] ([id number]) [address] [place] [address] #### CBCA, BMP #### [facility] ([id number]) [address] [facility], [address] [place] [address] Creatinine [Mass/Vol] 1.15 mg/dL High 0.40-1.00 [facility] Comment on above: Result Comment: METH OD TRACEABLE TO IDMS STANDARD Performed By: #### P INR, 56530-3 #### [facility] ([id number]) [address] [place] [address] #### CBCA, BMP #### [facility] ([id number]) [address] [facility], [address] [place] [address] GFR/1.73 sq M.predicted among non-blacks MDRD (S/P/Bld) [Vol rate/Area] 46 mL/min/{1.73_m2} Low >59 [facility] Comment on above: Result Comment: Reported eGFR is based on the CKD-EPI 1 equation that does not use a race coefficient. Performed By: #### P INR, 62557-3 #### [facility] ([id number]) [address] [place] [address] #### CBCA, BMP #### [facility] ([id number]) [address] [place] [address] Glucose [Mass/Vol] 70 mg/dL Normal 65-99 [facility] Comment on above: Performed By: #### P INR, 44039-0 #### [facility] ([id number]) [address] [place] [address] #### CBCA, BMP #### [facility] ([id number]) [address] [place] [address] Potassium [Moles/Vol] 4.1 mmol/L Normal 3.5-5.0 [facility] Comment on above: Performed By: #### P INR, 66733-2 #### [facility] ([id number]) [address] [place] [address] #### CBCA, BMP #### [facility] ([id number]) [address], [address] [place] [address] Sodium [Moles/Vol] 141 mmol/L Normal 134-146 [facility] Comment on above: Performed By: #### P INR, 35997-1 #### [facility] ([id number]) [address] [place] [address] #### CBCA, BMP #### [facility] ([id number]) [address] [place] [address] Urea nitrogen [Mass/Vol] 24 mg/dL Normal 5-27 [facility] Comment on above: Performed By: #### P INR, 33890-1 #### [facility] ([id number]) [address] [place] [address] #### CBCA, BMP #### [facility] ([id number]) [address] [place] [address] CBC AND AUTO DIFFon 10-27-19 24 ABSOLUTE BASOPHIL 0.0 X10E9/L Normal 0.0-0.2 [facility] Comment on above: Performed By: #### P INR, 21333-6 #### [facility] ([id number]) [address] [place] [address] #### CBCA, BMP #### [facility] ([id number]) [address], [address] [place] [address] ABSOLUTE NEUTROPHIL 5.5 X10E9/L Normal 1.5-6.6 [facility] Comment on above: Performed By: #### P INR, 43644-1 #### [facility] ([id number]) [address] [place] [address] #### CBCA, BMP #### [facility] ([id number]) [address], [address] [place] [address] Basophils/100 WBC (Bld) 0.4 % Normal [facility] Comment on above: Performed By: #### P INR, 59302-7 #### [facility] ([id number]) [address] [place] [address] #### CBCA, BMP #### [facility] ([id number]) [address], [address] [place] [address] Eosinophils (Bld) [#/Vol] 0.0 10*3/uL Normal 0.0-0.4 [facility] Comment on above: Performed By: #### P INR, 38704-6 #### [facility] ([id number]) [address] [place] [address] #### CBCA, BMP #### [facility] ([id number]) [address], [address] [place] [address] Eosinophils/100 WBC (Bld) 0.6 % Normal [facility] Comment on above: Performed By: #### P INR, 52782-4 #### [facility] ([id number]) [address] [place] [address] #### CBCA, BMP #### [facility] ([id number]) [address] [place] [address] Erythrocyte distribution width (RBC) [Ratio] 14.7 % Normal 11.5-15.0 [facility] Comment on above: Performed By: #### P INR, 86477-0 #### [facility] ([id number]) [address] [place] [address] #### CBCA, BMP #### [facility] ([id number]) [address], [address] [place] [address] Hematocrit (Bld) [Volume fraction] 35.1 % Normal 35-47 [facility] Comment on above: Performed By: #### P INR, 40042-5 #### [facility] ([id number]) [address] [place] [address] #### CBCA, BMP #### [facility] ([id number]) [address], [address] [place] [address] Hemoglobin (Bld) [Mass/Vol] 11.7 g/dL Normal 11.7-15.5 [facility] Comment on above: Performed By: #### P INR, 85021-4 #### [facility] ([id number]) [address] [place] [address] #### CBCA, BMP #### [facility] ([id number]) [address], [address] [place] [address] Lymphocytes (Bld) [#/Vol] 1.1 10*3/uL Normal 1.0-3.5 [facility] Comment on above: Performed By: #### P INR, 55865-9 #### [facility] ([id number]) [address] [place] [address] #### CBCA, BMP #### [facility] ([id number]) [address] [place] [address] Lymphocytes/100 WBC (Bld) 14.7 % Normal [facility] Comment on above: Performed By: #### P INR, 61195-9 #### [facility] ([id number]) [address] [place] [address] #### CBCA, BMP #### [facility] ([id number]) [address], [address] [place] [address] MCH (RBC) [Entitic mass] 32.5 pg Normal 27-34 [facility] Comment on above: Performed By: #### P INR, 17852-2 #### [facility] ([id number]) [address] [place] [address] #### CBCA, BMP #### [facility] ([id number]) [address] [place] [address] MCHC (RBC) [Mass/Vol] 33.3 g/dL Normal 32-36 [facility] Comment on above: Performed By: #### P INR, 06080-0 #### [facility] ([id number]) [address] [place] [address] #### CBCA, BMP #### [facility] ([id number]) [address], [address] [place] [address] MCV (RBC) [Entitic vol] 98 fL Normal 80-100 [facility] Comment on above: Performed By: #### P INR, 11728-1 #### [facility] ([id number]) [address] [place] [address] #### CBCA, BMP #### [facility] ([id number]) [address] [place] [address] Monocytes (Bld) [#/Vol] 1.1 10*3/uL High 0-0.9 [facility] Comment on above: Performed By: #### P INR, 26661-8 #### [facility] ([id number]) [address] [place] [address] #### CBCA, BMP #### [facility] ([id number]) [address] [place] [address] Monocytes/100 WBC (Bld) 13.8 % Normal [facility] Comment on above: Performed By: #### P INR, 22220-8 #### [facility] ([id number]) [address] [place] [address] 288[address] #### CBCA, BMP #### [facility] ([id number]) [address], [address] [place] [address] Neutrophils/100 WBC (Bld) 70.5 % Normal [facility] Comment on above: Performed By: #### P INR, 88941-9 #### [facility] ([id number]) [address] [place] [id number] #### CBCA, BMP #### [facility] ([id number]) [address], [address] [place] [address] Platelet mean volume (Bld) [Entitic vol] 7.6 fL Normal 7-12 [facility] Comment on above: Performed By: #### P INR, 75645-4 #### [facility] [facility] ([id number]) [address] [place] [address] #### CBCA, BMP #### [facility] ([id number]) [address] [place] [address], [address] [place] [address] Platelets (Bld) [#/Vol] 321 10*3/uL Normal 150-450 [facility] Comment on above: Performed By: #### P INR, 64055-2 #### [facility] ([id number]) [address] [place] [address] #### CBCA, BMP #### [facility] ([id number]) [address] [place] [address], [address] [place] [address] RBC COUNT 3.59 X10E12/L Low 3.80-5.20 [facility] Comment on above: Performed By: #### P INR, 57611-3 #### [facility] ([id number]) [address] [place] [address] #### CBCA, BMP #### [facility] ([id number]) [address] [place] [address], [address] [place] [address] WBC (Bld) [#/Vol] 7.8 10*3/uL Normal 4.0-11.0 [facility] Comment on above: Performed By: #### P INR, 99815-8 #### [facility] ([id number]) [address] [place] [address] #### CBCA, BMP #### [facility] ([id number]) [address] [place] [address], [address] [place] [address] PROTIME AND INRon 10-27-2023 INR Coag (PPP) [Relative time] 1.1 {INR} Normal 0.8-1.1 [facility] Comment on above: Performed By: #### P INR, 10550-5 #### [facility] ([id number]) [address] [place] [address] #### CBCA, BMP #### [facility] ([id number]) [address] [facility], [address] [place] [address] PT Coag (PPP) [Time] 12.3 s Normal 9.8-13.2 [facility] Comment on above: Result Comment: NEW REFERENCE RANGE Performed By: #### P INR, 54039-1 #### [facility] ([id number]) [address] [place] [address] #### CBCA, BMP #### [facility] ([id number]) [address] [facility], [address] [place] [address] aPTT Coag (PPP) [Time]on aPTT Coag (Bld) [Time] 36 s Normal 26-37 [facility] Comment on above: Result Comment: NEW REFERENCE RANGE Performed By: #### P INR, 87755-2 #### [facility] ([id number]) [address] [place] [address] #### CBCA, BMP #### [facility] ([id number]) [address] [facility], [address] [place] [address] Lab Reportson 07-27-2023 Lab Reports [id number]#1.00TIFF Normal [facility] Lab Reports [id number]#1.00TIFF Normal [facility] Blood Urea Nitrogenon 2023 Urea nitrogen [Mass/Vol] 16 mg/dL Normal 7-25 [facility] Comment on above: Order Comment: STAT FOR CT Performed By: #### B ANNE MARIE SHARMA #### [address] abdomen pelvis w conon CT abdomen pelvis w [facility] [place] [address] [place] [address] CT Scan Report Signed Patient: Vincent Hsu MR#: [id number] 4 : 1935 Acct:[id number] Age/Sex: 87 / F ADM Date: 05/28/23 Loc: CT Room: Type: [facility] Attending Dr: Monie Wallace DO Copies [...] Yen Jr., D.ORylee05/28/2023 1:34 PM Dictation Location: [place] [address] Transcribed By: [facility] 05/28/23 1334 Dictated By: Jm Yen Jr, DO 05/28/23 1331 Signed By: 05/28/23 1334 Normal [facility] Creatinineon 05-28-2023 Creatinine [Mass/Vol] 1.07 mg/dL Normal 0.60-1.20 [facility] Comment on above: Order Comment: STAT FOR CT Performed By: #### B UN, CREAT #### [facility] [address] [place] [address] [place] GFR/1.73 sq M.predicted MDRD (S/P/Bld) [Vol rate/Area] 50.587 mL/min/{1.73_m2} Normal [facility] Comment on above: Order Comment: STAT FOR CT Result Comment: PERF ORMED BY: [facility] [address] [place] [address] PATHOLOGIST [employer] CH[employer] CAREGIVER TIEN VELASQUEZ M.D. Performed By: #### B UN, CREAT #### [facility] [address] Creatinine [Mass/volume] in Serum or PlasmaOrdered By: Monie Wallace on 05-28-2023 Creatinine [Mass/Vol] 1.07 mg/dL 0.60-1.20 [facility] No Panel InformationOrdered By: Monie Wallace on 05-28-2023 Estimated GFR (CKD-EPI) 50.587 mL/Min [facility] Creatinine Clearance (Chem N/A [facility] Urea nitrogen [Mass/volume] in Serum or PlasmaOrdered By: Monie Wallace on 05-28-2023 Urea nitrogen [Mass/Vol] 16 mg/dL 7-25 [facility] No Panel InformationOrdered By: Gypsy Mcmahon on 05-25-2023 E coli Shiga Toxin EIA Fi [facility] Salmonella/Shigella Screen [facility] IgA [Mass/volume] in Serum o r Plasmaon 05-24-2023 IgA [Mass/Vol] 64 mg/dL 64-422 [facility] Comment on above: Performed at: [address] [id number] Director: Salomon Mcarthur PhD, Phone: [phone] No Panel Informationon 05-23 Endomysial IgA Antibody Negative Negative [facility] Serum gliadin peptide IgA an tibody assay (units/volume)on 05-24-2023 Gliadin peptide IgA Qn (S) 4 units 0-19 [facility] Comment on above: Negative 0 - 19 Weak Positive 20 - 30 Moderate to Strong Positive >30 Serum gliadin peptide IgG an tibody assay (units/volume)on 05-24-2023 Gliadin peptide IgG Qn (S) 2 units 0-19 [facility] Comment on above: Negative 0 - 19 Weak Positive 20 - 30 Moderate to Strong Positive >30 Serum tissue transglutaminas e (tTG) IgA antibody assay (units/volume)on 05-24-2023 tTG IgA Qn (S) <2 U/mL 0-3 [facility] Comment on above: Negative 0 - 3 Weak Positive 4 - 10 Positive >10 Tissue Transglutaminase (tTG) has been identified as the endomysial antigen. Studies have demonstr- ated that endomysial IgA antibodies have over 99% specificity for gluten sensitive enteropathy. Serum tissue transglutaminas e (tTG) IgG antibody assay (units/volume)on 05-24-2023 tTG IgG Qn (S) <2 U/mL 0-5 [facility] Comment on above: Negative 0 - 5 Weak Positive 6 - 9 Positive >9 [facility] 05-10-2023 Lab Reports [id number]#1.00TIFF Normal [facility] Lab Reports [id number]#1.00TIFF Normal [facility] Lab Reports [id number]#1.00TIFF Normal [facility] Automated urine specific gra vity by refractometryon 05-06-2023 Specific gravity Refractometry automated (U) [Rel density] 1.025 1.005-1.02 5 [facility] Bilirubin Auto test strip (U ) [Mass/Vol]on 05-06-2023 Bilirubin (U) [Mass/Vol] Negative NEGATIVE [facility] Color Auto (U)on 05-06-2023 Color (U) YELLOW YELLOW [facility] Ketones Auto test strip (U) [Mass/Vol]on 05-06-2023 Ketones (U) [Mass/Vol] Negative NEGATIVE [facility] Lab Reportson 05-06-2023 Lab Reports [id number]#1.00TIFF Normal [facility] Laboratory - Microbiology an d Antimicrobial susceptibilityOrdered By: Gypsy Mcmahon on 05-06-2023 Bacteria identified Cx Nom (U) [facility] Protein Auto test strip (U) [Mass/Vol]on 05-06-2023 Protein (U) [Mass/Vol] Negative NEG/TRACE Fi [facility] Specific gravity Auto test s trip (U) [Rel density]on 05-06-2023 Specific gravity (U) [Rel density] CLEAR CLEAR [facility] Urine glucose measurement by test strip (mass/volume)on 05-06-2023 Glucose Test strip (U) [Mass/Vol] Negative NEGATIVE [facility] Urine hemoglobin detection b y automated test stripon 05-06-2023 Hemoglobin Auto test strip Ql (U) TRACE-I NEGATIVE [facility] Urine nitrite detection by a utomated test stripon 05-06-2023 Nitrite Auto test strip Ql (U) SMALL NEGATIVE [facility] Nitrite Auto test strip Ql (U) Positive NEGATIVE [facility] Urobilinogen Auto test strip (U) [Mass/Vol]on 05-06-2023 Urobilinogen Qn (U) 0.2 {Gen'U}/dL 0.2-1.0 [facility] pH Auto test strip (U)on pH (U) 5.5 [pH] 5.0-9.0 [facility] No Panel Informationon 04-30 Clostridium difficile (PCR)(LAB) Negative NEGATIVE [facility] No Panel Informationon 04-06 Clostridium difficile (PCR)(LAB) Positive Negative [facility] Comment on above: Toxigenic C difficil e: PositiveEpidemic Strain Bl/NAP1/027: Presumptive NegativePerformed at: - Labco[address] [id number] Director: Salomon Mcarthur PhD, Phone: [phone] IntraOperative Documentson 0 02-12-2023 IntraOperative Documents [id number]#1.00TIFF Normal [facility] Physician Orderon 02-12-2023 Physician Order [id number]#1.00TIFF Normal [facility] Physician Order [id number]#1.00TIFF Normal [facility] ED Note-Physicianon 02-05-20 ED Note-Physician [id number]#1.00TIFF Normal [facility] Lab Reportson 02-04-2023 Lab Reports [id number]#1.00TIFF Normal [facility] Lab Reports [id number]#1.00TIFF [facility] Lab Reports [id number]#1.00TIFF [facility] Consent for Treatmenton 01-09 Consent for Treatment [id number]#1.00TIFF Normal [facility] Retail - Clinical Noteon Retail - Clinical Note [id number]#1.00TIFF [facility] Lab Reportson 01-28-2023 Lab Reports [id number]#1.00TIFF Normal [facility] Physician Orderon 01-28-2023 Physician Order [id number]#1.00TIFF [facility] Urology Office/Clinic Noteon 01-27-2023 Urology Office/Clinic [...] Urnls Dip Stick Auto w/o Microscopy POC 14177 2. 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 Case discussed w GI, Dr Brown's [employer] Katie. he agrees w above plan. 3. [...] the risks of side effects etc. Orders: [id number] Measure Post Void residual urine and/or bladder capacity by US- non-imaging Total time spent reviewing previous notes/results/external documents, preparing the chart, conducting the encounter with the patient and family, ordering tests/medications, and documenting the encounter was 40 minutes. Follow-up With When Contact Information MALATHI VIEIRA PA-C, URL [address] [place] [address] [phone] Additional Instructions: f/u in Spring Patient Education Urinary Tract Infection, Adult, Qrfb-je-Tbyo Documentation recorded by the scribe Caprice Stratton accurately reflects the services(s) I performed and decisions made by me. Authenticated by Malathi Vieira PA-C on 01/27/2023 13:56:47. I, Caprice Stratton, personally scribed for Malathi Vieira PA-C on (more content not included)... Normal [facility] Comment on above: Result [...] Urnls Dip Stick Auto w/o Microscopy POC 57213 Your Care Team Attending Physician - MALATHI [...] MALATHI VIEIRA PA-C Where: [facility] Patient Educationon 01-27-20 Patient Education Obstetrics [...] these instructions at home: Medicines ? Take jqfc-epj-urchqre and prescription medicines only as told by [...] provider. Document Revised: 09/06/2020 Document Reviewed: 09/06/2020 [employer] Patient Education ? 2022 [employer] [facility] Lab Reportson 01-25-2023 Lab Reports [id number]#1.00TIFF [facility] Lab Reports [id number]#1.00TIFF [facility] Lab Reports [id number]#1.00TIFF [facility] Lab Reportson 12-03-2022 Lab Reports [id number]#1.00TIFF [facility] Physician Orderon 12-01-2022 Physician Order [id number]#1.00TIFF [facility] Lab Reportson 09-25-2022 Lab Reports [id number]#1.00CD:12 7 [facility] Lab Reports [id number]#1.00CD:12 7 [facility] Physician Orderon 09-23-2022 Physician Order [id number]#1.00CD:12 7 [facility] Screenson 09-23-2022 Screens [id number]#1.00CD:12 7 [facility] Ambulatory Visit Summaryon 0 09-22-2022 Ambulatory [...] MALATHI VIEIRA PA-C Where: [facility] Patient Educationon 09-23-19 23 Patient Education [...] these instructions at home: Medicines ? Take wemx-srh-lqcaruv and prescription medicines only as told by [...] provider. Document Revised: 09/06/2020 Document Reviewed: 09/06/2020 [employer] Patient Education ? 2022 [employer]. Normal [facility] Urology Office/Clinic Noteon 09-22-2022 [...] symptoms not resolved. C&S this morning at [facility] ( not finalized) UTI symptoms Memory [...] resolved per daughter. C&S this morning at [facility] (not finalized) - will call pt [...] When Contact Information MALATHI VIEIRA PA-C, URL [address] [place] [address] Additional Instructions: Patient Education Urinary Tract Infection, Adult, Bvbz-sj-Bdrt I, Jazlyn Lucero, personally scribed for Malathi Vieira PA-C on 09/22/2022 15:36:00. . Documentation recorded by the rafaelibbeba Lucero accurately reflects the services(s) I performed [...] 3 mg (more content not included)... Normal [facility] Comment on above: Result [...] by: MI NUÑEZ Date: 2022-05-27 10:34 Normal [facility] CULTURE URINEon 05-14-2022 CULTURE URINE [...] Trimethoprim/Sulfamethoxa zole <=20 S F Normal The [facility] Comment on above: Performed By: #### U RCX #### [facility] [address] [place] [address] Dr. Anthony Bonilla UA RANDOMon 05-11-2022 Bilirubin Ql (U) Negative Normal NEGATIVE [facility] Comment on above: Performed By: #### U RCX #### [facility] [address] [place] [address] Dr. Anthony Bonilla Clarity (U) SL CLOUDY Abnormal CLEAR [facility] Comment on above: Performed By: #### U RCX #### [facility] [address] [place] [address] Dr. Anthony Bonilla Color (U) LT. YELLOW Normal YELLOW [facility] Comment on above: Performed By: #### U RCX #### [facility] [address] [place] [address] [address] Anthony Bonilla Glucose Ql (U) Negative Normal NEGATIVE [facility] Comment on above: Performed By: #### U RCX #### [facility] [address] [place] [address] [address] Anthony Bonilla Hemoglobin Ql (U) Negative Normal NEGATIVE [facility] Comment on above: Performed By: #### U RCX #### [facility] [address] [place] [address] [address] Anthony Bonilla Ketones Ql (U) Negative Normal NEGATIVE [facility] Comment on above: Performed By: #### U RCX #### [facility] [address] [place] [address] Dr. Anthony Bonilla LEUKOCYTES MODERATE Abnormal NEGATIVE [facility] Comment on above: Performed By: #### U RCX #### [facility] [address] [place] [address] Dr. Anthony Bonilla Nitrite Ql (U) Negative Normal NEGATIVE [facility] Comment on above: Performed By: #### U RCX #### [facility] [address] [place] [address] Dr. Anthony Bonilla pH (U) 5.5 [pH] Normal 5-9 [facility] Comment on above: Performed By: #### U RCX #### [facility] [address] [place] [address] Dr. Anthony Bonilla SPEC GRAVITY 1.020 Normal 1.005-<=1. 025 [facility] Comment on above: Performed By: #### U RCX #### [facility] [address] [place] [address] Dr. Anthony Bonilla UA PROTEIN Negative Normal NEGATIVE/ TRACE [facility] Comment on above: Performed By: #### U RCX #### [facility] [address] [place] [address] Dr. Anthony Bonilla Urobilinogen Qn (U) 0.2 {Gen'U}/dL Normal 0.2 - 1. 0 [facility] Comment on above: Performed By: #### U RCX #### [facility] [address] [place] [address] Dr. Anthony Bonilla CULTURE URINEon 05-01-2022 CULTURE [...] F Trimethoprim/Sulfamethoxa zole <=20 S F Normal [facility] Comment on above: Performed By: #### U RCX #### [facility] [address] [place] [address] Dr. Anthony Bonilla CULTURE URINEon 04-16-2022 CULTURE [...] R F Nitrofurantoin 64 I F Normal [facility] Comment on above: Performed By: #### U RCX #### [facility] [address] [place] [address] Dr. Anthony Bonilla UA RANDOMon 04-14-2022 Bilirubin Ql (U) Negative Normal NEGATIVE [facility] Comment on above: Performed By: #### U RCX #### [facility] [address] [place] [address] Dr. Anthony Bonilla Clarity (U) CLEAR Normal CLEAR [facility] Comment on above: Performed By: #### U RCX #### [facility] [address] [place] [address] Dr. Anthony Bonilla Color (U) LT. YELLOW Normal YELLOW [facility] Comment on above: Performed By: #### U RCX #### [facility] [address] [place] [address] Dr. Anthony Bonilla Glucose Ql (U) Negative Normal NEGATIVE [facility] Comment on above: Performed By: #### U RCX #### [facility] [address] [place] [address] [address] Anthony Bonilla Hemoglobin Ql (U) Negative [facility] Comment on above: Performed By: #### U RCX #### [facility] [address] [place] [address] Dr. Anthony Bonilla Ketones Ql (U) Negative Normal NEGATIVE [facility] Comment on above: Performed By: #### U RCX #### [facility] [address] [place] [address] [address] Anthony Bonilla LEUKOCYTES MODERATE Abnormal NEGATIVE [facility] Comment on above: Performed By: #### U RCX #### [facility] [address] [place] [address] Dr. Anthony Bonilla Nitrite Ql (U) Negative Normal NEGATIVE [facility] Comment on above: Performed By: #### U RCX #### [facility] [address] [place] [address] [address] Anthony Bonilla pH (U) 5.5 [pH] Normal 5-9 [facility] Comment on above: Performed By: #### U RCX #### [facility] [address] [place] [address] Dr. Anthony Bonilla SPEC GRAVITY 1.020 Normal 1.005-<=1. 025 [facility] Comment on above: Performed By: #### U RCX #### [facility] [address] [place] [address] [address] Anthony Bonilla UA PROTEIN Negative Normal NEGATIVE/ TRACE [facility] Comment on above: Performed By: #### U RCX #### [facility] [address] [place] [address] [address] Anthony Bonilla Urobilinogen Qn (U) 0.2 {Gen'U}/dL Normal 0.2 - 1. 0 [facility] Comment on above: Performed By: #### U RCX #### [facility] [address] [place] [address] Dr. Anthony Bonilla Urinalysis - DIPSTICKon 03-12 Appearance (U) clear [employer] Other Bilirubin Ql (U) small [place] [facility] [employer] Other Color (U) dark yellow [employer] Other Glucose Ql (U) Negative [employer] Other Hemoglobin Ql (U) Negative [place] [employer] Other Ketones Ql (U) trace [employer] Other Leukocyte esterase Test strip Ql (U) small [employer] Other Nitrite Ql (U) Negative [employer] Other pH (U) 5.0 [pH] [employer] Other Protein Ql (U) Negative [employer] Other Specific gravity (U) [Rel density] 1.015 [employer] Other Urobilinogen (U) [Mass/Vol] 0.2 mg/dL [employer] Other Urinalysis - DIPSTICK [employer] Other Urine Cultureon 03-30-2022 Urine Culture 10,000 [employer] Other Bacteria identified Cx Nom (U) [employer] Other CULTURE URINEon 03-23-2022 CULTURE URINE Isolate 1 Pseudomonas aeruginosa >100,000 cfu/mL of ORGANISM 1 Pseudomonas aeruginosa ANTIBIOTIC M.I.C RX STATUS Piperacillin/Tazobactam 8 S F Ceftazidime 4 S F Imipenem 1 S F Amikacin <=2 S F Gentamicin <=1 S F Tobramycin <=1 S F Ciprofloxacin <=0.25 S F Levofloxacin 0.5 S F Normal [facility] Comment on above: Performed By: #### U RCX #### [facility] [address] [place] [address] Dr. Anthony Bonilla CARDIAC DARWIN ADMITon 023 CK [Catalytic activity/Vol] 137 U/L Normal 26-192 [facility] Comment on above: Performed By: #### U RCX #### [facility] [address] [place] [address] Dr. Anthony Bonilla CK.MB [Mass/Vol] 1.05 ng/mL Normal <=3.60 [facility] Comment on above: Performed By: #### U RCX #### [facility] [address] [place] [address] Dr. Anthony Bonilla HSTROP 17.6 pg/mL Normal 4.0-51.3 [facility] Comment on above: Result Comment: CUT- OFF POINTS HAVE BEEN ESTABLISHED BASED ON THE FOURTH UNIVERSAL DEFINITIONS OF MYOCARDIAL INFARCTION. THE UPPER REFERENCE LIMIT (URL) OF TROPONIN, DEFINED THE 99TH PERCENTILE OF cTnI DISTRIBUTION IN A REFERENCE POPULATION, HAS BEEN CONFIRMED THE DECISION THRESHOLD FOR ND DIAGNOSIS. Performed By: #### U RCX #### [facility] [address] [place] [address] Dr. Anthony Bonilla CANDIDA 72 ng/mL Normal 9-82 [facility] Comment on above: Performed By: #### U RCX #### [facility] [address] [place] [address] Dr. Anthony Bonilla CBC AUTO DIFFon 03-20-2022 BASO # 0.0 103/ul Normal 0.0-0.1 [facility] Comment on above: Performed By: #### C BC #### [facility] [address] [place] [address] Dr. Anthony Bonilla Basophils/100 WBC (Bld) 0.3 % Normal 0.2-2.0 [facility] Comment on above: Performed By: #### C BC #### [facility] [address] [place] [address] Dr. Anthony Bonilla EO # 0.0 103/ul Normal 0.0-0.7 [facility] Comment on above: Performed By: #### C BC #### [facility] [address] [place] [address] Dr. Anthony Bonilla Eosinophils/100 WBC (Bld) 0.1 % Critically low 0.9-7.0 [facility] Comment on above: Performed By: #### C BC #### [facility] [address] [place] [address] Dr. Anthony Bonilla Erythrocyte distribution width (RBC) [Ratio] 15.9 % Critically high 11.0-15.0 [facility] Comment on above: Performed By: #### C BC #### [facility] [address] [place] [address] Dr. Anthony Bonilla Hematocrit (Bld) [Volume fraction] 33.6 % Critically low 36.0-48.0 [facility] Comment on above: Performed By: #### C BC #### [facility] [address] [place] [address] Dr. Anthony Bonilla Hemoglobin (Bld) [Mass/Vol] 11.2 g/dL Critically low 12.0-16.0 [facility] Comment on above: Performed By: #### C BC #### [facility] [address] [place] [address] Dr. Anthony Bonilla IG # 0.04 10e3/ul Critically high 0.00-0.03 [facility] [facility] Comment on above: Performed By: #### C BC #### [facility] [address] [place] [address] Dr. Anthony Bonilla IG % 0.3 % Normal 0.0-0.5 [facility] Comment on above: Performed By: #### C BC #### [facility] [address] [place] [address] Dr. Anthony Bonilla LYMPH # 0.8 103/ul Critically low 1.2-3.8 [facility] Comment on above: Performed By: #### C BC #### [facility] [address] [place] [address] Dr. Anthony Bonilla Lymphocytes/100 WBC (Bld) 6.4 % Critically low 20.5-60.0 [facility] Comment on above: Performed By: #### C BC #### [facility] [address] [place] [address] Dr. Anthony Bonilla MANUAL DIFF REQ NO Normal [facility] Comment on above: Performed By: #### C BC #### [facility] [address] [place] [address] Dr. Anthony Bonilla MCH (RBC) [Entitic mass] 28.9 pg Normal 26.7-34.0 [facility] Comment on above: Performed By: #### C BC #### [facility] [address] [place] [address] Dr. Anthony Bonilla MCHC (RBC) [Mass/Vol] 33.3 g/dL Normal 29.9-35.2 [facility] Comment on above: Performed By: #### C BC #### [facility] [address] [place] [address] Dr. Anthony Bonilla MCV (RBC) [Entitic vol] 86.8 fL Normal 81.0-99.0 [facility] Comment on above: Performed By: #### C BC #### [facility] [address] [place] [address] Dr. Anthony Bonilla MONO # 1.1 103/ul Critically high 0.3-0.8 [facility] Comment on above: Performed By: #### C BC #### [facility] [address] [place] [address] Dr. Anthony Bonilla Monocytes/100 WBC (Bld) 8.3 % Normal 1.7-12.0 [facility] Comment on above: Performed By: #### C BC #### [facility] [address] [place] [address] Dr. Anthony Bonilla NEUT # 11.2 103/ul Critically high 1.4-6.5 [facility] Comment on above: Performed By: #### C BC #### [facility] [address] [place] [address] Dr. Anthony Bonilla Neutrophils/100 WBC (Bld) 84.6 % Critically high 43.0-75.0 [facility] Comment on above: Performed By: #### C BC #### [facility] [address] [place] [address] Dr. Anthony Bonilla Platelet mean volume (Bld) [Entitic vol] 9.7 fL Normal 9.5-13.5 [facility] Comment on above: Performed By: #### C BC #### [facility] [address] [place], [place] [address] Dr. Anthony Bonilla PLT 274 103/ul Normal 150-450 [facility] Comment on above: Performed By: #### C BC #### [facility] [address] [place], [place] [address] Dr. Anthony Bonilla RBC 3.87 106/ul Critically low 4.20-5.40 [facility] Comment on above: Performed By: #### C BC #### [facility] [address] [place], [place] [address] Dr. Anthony Bonilla WBC 13.2 103/ul Critically high 4.0-11.0 [facility] Comment on above: Performed By: #### C BC #### [facility] [address] [place], [place] [address] HEAD WO CONon [...] CLAU SHAH Date: 2022-03-20 20:30 Normal [facility] URINE PROFILEon 3 Bilirubin Ql (U) Negative Normal NEGATIVE [facility] Comment on above: Performed By: #### C BC #### [facility] [address] [place] [address] Dr. Anthony Bonilla Clarity (U) CLEAR Normal CLEAR [facility] Comment on above: Performed By: #### C BC #### [facility] [address] [place] [address] Dr. Anthony Bonilla Color (U) LT. YELLOW Normal YELLOW [facility] Comment on above: Performed By: #### C BC #### [facility] [address] [place] [address] Dr. Anthony Bonilla ERUAHD A micrscopic examina tion will be performed if indicated. Normal [facility] Comment on above: Performed By: #### C BC #### [facility] [address] [place] [address] Dr. Anthony Bonilla Glucose Ql (U) Negative Normal NEGATIVE [facility] Comment on above: Performed By: #### C BC #### [facility] [address] [place] [address] Dr. Anthony Bonilla Hemoglobin Ql (U) LARGE Abnormal NEGATIVE [facility] Comment on above: Performed By: #### C BC #### [facility] [address] [place] [address] Dr. Anthony Bonilla Ketones Ql (U) Negative Normal NEGATIVE [facility] Comment on above: Performed By: #### C BC #### [facility] [address] [place] [address] Dr. Anthony Bonilla LEUKOCYTES SMALL Abnormal NEGATIVE [facility] Comment on above: Performed By: #### C BC #### [facility] [address] [place] [address] Dr. Anthony Bonilla Nitrite Ql (U) Positive Abnormal NEGATIVE [facility] Comment on above: Performed By: #### C BC #### [facility] [address] [place] [address] Dr. Anthony Bonilla pH (U) 7.0 [pH] Normal 5-9 [facility] Comment on above: Performed By: #### C BC #### [facility] [address] [place] [address] [address] Anthony Bonilla Protein (U) [Mass/Vol] 30 mg/dL Abnormal NEGAT JAMAR/ TRACE [facility] Comment on above: Performed By: #### C BC #### [facility] [address] [place] [address] Dr. Anthony Bonilla SPEC GRAVITY 1.015 Normal 1.005-<=1. 025 [facility] Comment on above: Performed By: #### C BC #### [facility] [address] [place] [address] Dr. Anthony Bonilla UR MICRO IND INDICATED Normal [facility] Comment on above: Performed By: #### C BC #### [facility] [address] [place] [address] Dr. Anthony Bonilla Urobilinogen Qn (U) 1.0 {Gen'U}/dL Normal 0.2 - 1. 0 [facility] Comment on above: Performed By: #### C BC #### [facility] [address] [place] [address] Dr. Anthony Bonilla PROF 14(COMP METB)on 023 Albumin [Mass/Vol] 3.4 g/dL Normal 3.4-5.0 [facility] Comment on above: Performed By: #### U RCX #### [facility] [address] [place] [address] Dr. Anthony Bonilla Albumin/Globulin [Mass ratio] 1.2 {ratio} Normal [facility] Comment on above: Performed By: #### U RCX #### [facility] [address] [place] [address] Dr. Anthony Bonilla ALP [Catalytic activity/Vol] 26 U/L Critically low 46-116 [facility] Comment on above: Performed By: #### U RCX #### [facility] [address] [place] [address] [address] Anthony Bonilla ALT [Catalytic activity/Vol] 21 U/L Normal 14-59 [facility] Comment on above: Performed By: #### U RCX #### [facility] [address] [place] [address] [address] Anthony Bonilla Anion gap [Moles/Vol] 13.7 mmol/L Normal [facility] Comment on above: Performed By: #### U RCX #### [facility] [address] [place] [address] [address] Anthony Bonilla AST [Catalytic activity/Vol] 20 U/L Normal 15-37 [facility] Comment on above: Performed By: #### U RCX #### [facility] [address] [place] [address] [address] Anthony Bonilla Bilirubin [Mass/Vol] 1.2 mg/dL Critically high 0.2-1.0 [facility] Comment on above: Performed By: #### U RCX #### [facility] [address] [place] [address] [address] Anthony Bonilla Calcium [Mass/Vol] 9.4 mg/dL Normal 8.5-10.1 [facility] Comment on above: Performed By: #### U RCX #### [facility] [address] [place] [address] [address] Anthony Bonilla Chloride [Moles/Vol] 99 mmol/L Normal 98-107 [facility] Comment on above: Performed By: #### U RCX #### [facility] [address] [place] [address] [address] Anthony Bonilla CO2 [Moles/Vol] 29.1 mmol/L Normal 21.0-32.0 [facility] Comment on above: Performed By: #### U RCX #### [facility] [address] [place] [address] [address] Anthony Bonilla Creatinine [Mass/Vol] 1.02 mg/dL Normal 0.55-1.02 [facility] Comment on above: Performed By: #### U RCX #### [facility] [address] [place] [address] [address] Anthony oBnilla EGFR-AF [place] >60 Normal >=60 [facility] Comment on above: Performed By: #### U RCX #### [facility] [address] [place] [address] [address] Anthony Bonilla EGFR-NON AF [place] 52 mL/min/1.73m2 Critically low >=60 [facility] Comment on above: Performed By: #### U RCX #### [facility] [address] [place] [address] [address] Anthony Bonilla Globulin (S) [Mass/Vol] 2.9 g/dL Normal [facility] Comment on above: Performed By: #### U RCX #### [facility] [address] [place] [address] [address] Anthony Bonilla Glucose [Mass/Vol] 98 mg/dL Normal 74-106 [facility] Comment on above: Performed By: #### U RCX #### [facility] [address] [place] [address] [address] Anthony Bonilla Potassium [Moles/Vol] 3.8 mmol/L Normal 3.5-5.1 [facility] Comment on above: Performed By: #### U RCX #### [facility] [address] [place] [address] [address] Anthony Bonilla Protein [Mass/Vol] 6.3 g/dL Critically low 6.4-8.2 [facility] Comment on above: Performed By: #### U RCX #### [facility] [address] [place] [address] [address] Anthony Bonilla Sodium [Moles/Vol] 138 mmol/L Normal 136-145 [facility] Comment on above: Performed By: #### U RCX #### [facility] [address] [place] [address] [address] Anthony Bonilla Urea nitrogen [Mass/Vol] 16.0 mg/dL Normal 7.0-18.0 [facility] Comment on above: Performed By: #### U RCX #### [facility] [address] [place] [address] Dr. Anthony Bonilla Urea nitrogen/Creatinine [Mass ratio] 15.7 mg/mg Normal [facility] Comment on above: Performed By: #### U RCX #### [facility] [address] [place] [address] Dr. Anthony Bonilla URINE MICROSCOPIC ONLYon BACTERIA LARGE Abnormal NONE SEEN [facility] Comment on above: Performed By: #### C BC #### [facility] [address] [place] [address] Dr. Anthony Bonilla Bacteria identified Cx Nom (U) INDICATED Normal [facility] Comment on above: Performed By: #### C BC #### [facility] [address] [place] [address] Dr. Anthony Bonilla CAST NONE SEEN Normal NONE SEEN [facility] Comment on above: Performed By: #### C BC #### [facility] [address] [place] [address] Dr. Anthony Bonilla Crystals LM Nom (Urine sed) NONE SEEN Normal NONE SEEN [facility] Comment on above: Performed By: #### C BC #### [facility] [address] [place] [address] Dr. Anthony Bonilla Epithelial cells LM Ql (Urine sed) FEW Abnormal NONE SEEN /RARE [facility] Comment on above: Performed By: #### C BC #### [facility] [address] [place] [address] Dr. Anthony Bonilla MUCOUS NONE SEEN Normal NONE SEEN [facility] Comment on above: Performed By: #### C BC #### [facility] [address] [place] [address] Dr. Anthony Bonilla RBC 10-20 Abnormal 0-2 [facility] Comment on above: Performed By: #### C BC #### [facility] [address] [place] [address] Dr. Anthony Bonilla WBC 50-75 Abnormal NONE SEEN [facility] Comment on above: Performed By: #### C BC #### [facility] [address] [place] [address] Dr. Anthony Bonilla CALPROTECTIN, FECALon 2022 Calprotectin, Fecal 416 ug/g Critically high 0-120 [facility] Comment on above: Result Comment: Conc entration Interpretation Follow-Up <16 - 50 ug/g Normal None >50 -120 ug/g Borderline Re-evaluate in 4-6 weeks >120 ug/g Abnormal Repeat as clinically indicated Performed By: #### U RCX #### [facility] [address] [place] [address] Dr. Anthony Bonilla QUANTIFERON TB GOLD PLUSon 0 02-19-2022 QuantiFERON Criteria Comment Normal [facility] Comment on above: Result Comment: [...] test. Performed By: #### U RCX #### [facility] [address] [place] [address] Dr. Anthony Bonilla QuantiFERON Incubation Incubation performed. Normal [facility] Comment on above: Performed By: #### U RCX #### [facility] [address] [place] [address] Dr. Anthony Bonilla QuantiFERON Mitogen Value >10.00 Normal [facility] Comment on above: Performed By: #### U RCX #### [facility] [address] [place] [address] Dr. Anthony Bonilla QuantiFERON Nil Value 0.07 IU/mL Normal [facility] Comment on above: Performed By: #### U RCX #### [facility] [address] [place] [address] Dr. Anthony Bonilla QuantiFERON TB1 Ag Value 0.08 IU/mL Normal [facility] Comment on above: Performed By: #### U RCX #### [facility] [address] [place] [address] Dr. Anthony Bonilla QuantiFERON TB2 Ag Value 0.07 IU/mL Normal [facility] Comment on above: Performed By: #### U RCX #### [facility] [address] [place] [address] [address] Anthony Bonilla QuantiFERON-TB Gold Plus Negative Normal Negative [facility] Comment on above: Result Comment: No r esponse to M tuberculosis antigens detected. Infection with M tuberculosis is unlikely, but high risk individuals should be considered for additional testing (ATS/IDSA/CDC Clinical Practice Guidelines, 2017). The reference range is an Antigen minus Nil result of <0.35 IU/mL. Chemiluminescence immunoassay methodology Performed By: #### U RCX #### [facility] [address] [place] [address] [address] Anthony Bonilla HEP B SURFACE ANTIGEN SCREEN on 02-18-2022 HBsAg Screen Negative Normal Negative [facility] Comment on above: Performed By: #### U RCX #### [facility] [address] [place] [address] Dr. Anthony Bonilla HEPATITIS B CORE, IgMon 02-08 Hep B Core Ab, IgM Negative Normal Negative [facility] Comment on above: Performed By: #### U RCX #### [facility] [address] [place] [address] Dr. Anthony Bonilla HEPATITIS B SURFACE ANTIBODY , QUANTon 02-18-2022 Hepatitis B Surf AB Quant <3.1 Critically low Immunity>9 .9 [facility] Comment on above: Result Comment: Stat us of Immunity Anti-HBs Level Inconsistent with Immunity 0.0 - 9.9 Consistent with Immunity >9.9 Performed By: #### C BC #### [facility] [address] [place] [address] Dr. Anthony Bonilla CBC AUTO DIFFon 02-17-2022 BASO # 0.0 103/ul Normal 0.0-0.1 [facility] Comment on above: Performed By: #### U RCX #### [facility] [address] [place] [address] Dr. Anthony Bonilla Basophils/100 WBC (Bld) 0.4 % Normal 0.2-2.0 [facility] Comment on above: Performed By: #### U RCX #### [facility] [address] [place] [address] Dr. Anthony Bonilla EO # 0.0 103/ul Normal 0.0-0.7 [facility] Comment on above: Performed By: #### U RCX #### [facility] [address] [place] [address] Dr. Anthony Bonilla Eosinophils/100 WBC (Bld) 0.5 % Critically low 0.9-7.0 [facility] Comment on above: Performed By: #### U RCX #### [facility] [address] [place] [address] Dr. Anthony Bonilla Erythrocyte distribution width (RBC) [Ratio] 14.7 % Normal 11.0-15.0 [facility] Comment on above: Performed By: #### U RCX #### [facility] [address] [place] [address] Dr. Anthony Bonilla Hematocrit (Bld) [Volume fraction] 33.2 % Critically low 36.0-48.0 [facility] Comment on above: Performed By: #### U RCX #### [facility] [address] [place] [address] Dr. Anthony Bonilla Hemoglobin (Bld) [Mass/Vol] 11.0 g/dL Critically low 12.0-16.0 [facility] Comment on above: Performed By: #### U RCX #### [facility] [address] [place] [address] Dr. Anthony Bonilla IG # 0.02 10e3/ul Normal 0.00-0.03 [facility] Comment on above: Performed By: #### U RCX #### [facility] [address] [place] [address] Dr. Anthony Bonilla IG % 0.2 % Normal 0.0-0.5 [facility] Comment on above: Performed By: #### U RCX #### [facility] [address] [place] [address] Dr. Anthony Bonilla LYMPH # 1.3 103/ul Normal 1.2-3.8 [facility] Comment on above: Performed By: #### U RCX #### [facility] [address] [place] [address] Dr. Anthony Bonilla Lymphocytes/100 WBC (Bld) 14.8 % Critically low 20.5-60.0 [facility] Comment on above: Performed By: #### U RCX #### [facility] [address] [place] [address] Dr. Anthony Bonilla MANUAL DIFF REQ NO Normal [facility] Comment on above: Performed By: #### U RCX #### [facility] [address] [place] [address] Dr. Anthony Bonilla MCH (RBC) [Entitic mass] 29.0 pg Normal 26.7-34.0 [facility] Comment on above: Performed By: #### U RCX #### [facility] [address] [place] [address] Dr. Anthony Bonilla MCHC (RBC) [Mass/Vol] 33.1 g/dL Normal 29.9-35.2 [facility] Comment on above: Performed By: #### U RCX #### [facility] [address] [place] [address] Dr. Anthony Bonilla MCV (RBC) [Entitic vol] 87.6 fL Normal 81.0-99.0 [facility] Comment on above: Performed By: #### U RCX #### [facility] [address] [place] [address] Dr. Anthony Bonilla MONO # 0.8 103/ul Normal 0.3-0.8 [facility] Comment on above: Performed By: #### U RCX #### [facility] [address] [place] [address] Dr. Anthony Bonilla Monocytes/100 WBC (Bld) 9.6 % Normal 1.7-12.0 [facility] Comment on above: Performed By: #### U RCX #### [facility] [address] [place] [address] Dr. Anthony Bonilla NEUT # 6.3 103/ul Normal 1.4-6.5 [facility] Comment on above: Performed By: #### U RCX #### [facility] [address] [place] [address] Dr. Anthony Bonilla Neutrophils/100 WBC (Bld) 74.5 % Normal 43.0-75.0 [facility] Comment on above: Performed By: #### U RCX #### [facility] [address] [place] [address] [address] Anthony Bonilla Platelet mean volume (Bld) [Entitic vol] 9.8 fL Normal 9.5-13.5 [facility] Comment on above: Performed By: #### U RCX #### [facility] [address] [place] [address] Dr. Anthony Bonilla PLT 318 103/ul Normal 150-450 [facility] Comment on above: Performed By: #### U RCX #### [facility] [address] [place] [address] Dr. Anthony Bonilla RBC 3.79 106/ul Critically low 4.20-5.40 [facility] Comment on above: Performed By: #### U RCX #### [facility] [address] [place] [address] Dr. Anthony Bonilla WBC 8.5 103/ul Normal 4.0-11.0 [facility] Comment on above: Performed By: #### U RCX #### [facility] [address] [place] [address] Dr. Anthony Bonilla PROF 14(COMP METB)on 023 Albumin [Mass/Vol] 3.6 g/dL Normal 3.4-5.0 [facility] Comment on above: Performed By: #### U RCX #### [facility] [address] [place] [address] Dr. Anthony Bonilla Albumin/Globulin [Mass ratio] 1.2 {ratio} Normal [facility] Comment on above: Performed By: #### U RCX #### [facility] [address] [place] [address] Dr. Antohny Bonilla ALP [Catalytic activity/Vol] 27 U/L Critically low 46-116 [facility] Comment on above: Performed By: #### U RCX #### [facility] [address] [place] [address] [address] Anthony Bonilla ALT [Catalytic activity/Vol] 21 U/L Normal 14-59 [facility] Comment on above: Performed By: #### U RCX #### [facility] [address] [place] [address] [address] Anthony Bonilla Anion gap [Moles/Vol] 13.5 mmol/L Normal Th [facility] Comment on above: Performed By: #### U RCX #### [facility] [address] [place] [address] Dr. Anthony Bonilla AST [Catalytic activity/Vol] 19 U/L Normal 15-37 [facility] Comment on above: Performed By: #### U RCX #### [facility] [address] [place] [address] [address] Anthony Bonilla Bilirubin [Mass/Vol] 0.6 mg/dL Normal 0.2-1.0 [facility] Comment on above: Performed By: #### U RCX #### [facility] [address] [place] [address] Dr. Anthony Bonilla Calcium [Mass/Vol] 9.2 mg/dL Normal 8.5-10.1 [facility] Comment on above: Performed By: #### U RCX #### [facility] [address] [address] [address] Anthony Bonilla Chloride [Moles/Vol] 104 mmol/L Normal 98-107 [facility] Comment on above: Performed By: #### U RCX #### [facility] [address] [place] [address] [address] Anthony Bonilla CO2 [Moles/Vol] 28.9 mmol/L Normal 21.0-32.0 [facility] Comment on above: Performed By: #### U RCX #### [facility] [address] [place] [address] Dr. Anthony Bonilla Creatinine [Mass/Vol] 1.21 mg/dL Critically high 0.55-1.02 [facility] Comment on above: Performed By: #### U RCX #### [facility] [address] [place] [address] [address] Anthony Bonilla EGFR-AF [place] 51 mL/min/1.73m2 Critically low >=60 [facility] Comment on above: Performed By: #### U RCX #### [facility] [address] [address] [address] Anthony Bonilla EGFR-NON AF [place] 42 mL/min/1.73m2 Critically low >=60 [facility] Comment on above: Performed By: #### U RCX #### [facility] [address] [place] [address] Dr. Anthony Bonilla Globulin (S) [Mass/Vol] 3.1 g/dL Normal [facility] Comment on above: Performed By: #### U RCX #### [facility] [address] [address] [address] Anthony Bonilla Glucose [Mass/Vol] 107 mg/dL Critically high 74-106 T [facility] Comment on above: Performed By: #### U RCX #### [facility] [address] [place] [address] Dr. Anthony Bonilla Potassium [Moles/Vol] 3.4 mmol/L Critically low 3.5-5.1 [facility] Comment on above: Performed By: #### U RCX #### [facility] [address] [address] [address] Anthony Bonilla Protein [Mass/Vol] 6.7 g/dL Normal 6.4-8.2 [facility] Comment on above: Performed By: #### U RCX #### [facility] [address] [place] [address] Dr. Anthony Bonilla Sodium [Moles/Vol] 143 mmol/L Normal 136-145 [facility] Comment on above: Performed By: #### U RCX #### [facility] [address] [address] [address] Anthony Bonilla Urea nitrogen [Mass/Vol] 22.0 mg/dL Critically high 7.0-18.0 [facility] Comment on above: Performed By: #### U RCX #### [facility] [address] [address] [address] Anthony Bonilla Urea nitrogen/Creatinine [Mass ratio] 18.2 mg/mg Normal [facility] Comment on above: Performed By: #### U RCX #### [facility] [address] [address] [address] Anthony Bonilla Automated erythrocytes count in urine sediment (number/area)Ordered By: Gypsy Mcmahon on 02-16-2022 RBC Auto (Urine sed) [#/Area] 0-1 [HPF] 0-4 [facility] Automated leukocytes count i n urine sediment (number/area)Ordered By: Gypsy Mcmahon on 02-16-2022 WBC Auto (Urine sed) [#/Area] 20-49 [HPF] 0-4 [facility] Bilirubin Test strip Ql (U)O rdered By: Gypsy Mcmahon on 02-16-2022 Bilirubin Ql (U) Negative Negative [facility] Color Auto (U)Ordered By: Nicole Mcmahon on 02-16-2022 Color (U) Yellow Yellow [facility] Ketones Auto test strip (U) [Mass/Vol]Ordered By: Gypsy Mcmahon on 02-16-2022 Ketones (U) [Mass/Vol] Trace Negative [facility] - UrinalysisOrder ed By: Gypsy Mcmahon on 02-16-2022 Hyaline casts LM Ql (Urine sed) 9-19 [LPF] 0-8 [facility] Nitrite Test strip Ql (U)Ord ered By: Gypsy Mcmahon on 02-16-2022 Nitrite Ql (U) Positive Negative [facility] Protein Auto test strip (U) [Mass/Vol]Ordered By: Gypsy Mcmahon on 02-16-2022 Protein (U) [Mass/Vol] Negative Negative [facility] Specific gravity Auto test s trip (U) [Rel density]Ordered By: Gypsy Mcmahon on 02-16-2022 Specific gravity (U) [Rel density] 1.018 1.001-1.03 0 [facility] Squamous epithelial cells de tection in urine sediment by light microscopyOrdered By: Gypsy Mcmahon on 02-16-2022 Epithelial cells.squamous LM Ql (Urine sed) 5-9 [HPF] 0-2 [facility] Urine Cultureon 02-16-2022 Urine Culture >100,000 [facility] Other Urine Culture <16 Susceptible Taodyne Other Urine Culture <8/4 Susceptible Taodyne Other Urine Culture <4 Susceptible Taodyne Other Urine Culture <2 Susceptible Taodyne Other Urine Culture <1 Susceptible Taodyne Other Urine Culture <0.25 Susceptible Taodyne Other Urine Culture <0.5 Susceptible Taodyne Other Urine Culture <32 Susceptible Taodyne Other Urine Culture <0.5/9.5 Susceptible Taodyne Other Urine bacteria detection by automated methodOrdered By: Gypsy Mcmahon on 02-16-2022 Bacteria Auto Ql (U) 2+ None Seen [facility] Urine clarity by refractomet ry automatedOrdered By: Gypsy Mcmahon on 02-16-2022 Clarity Refractometry automated (U) Cloudy Clear [facility] Urine culture routineOrdered By: Gypsy Mcmahon on 02-16-2022 Bacteria identified Cx Nom (U) Klebsiella variicola [facility] Urine glucose measurement by automated test strip (mass/volume)Ordered By: Gypsy Mcmahon on 02-16-2022 Glucose Auto test strip (U) [Mass/Vol] Normal mg/dL Normal [facility] Urine hemoglobin detection b y automated test stripOrdered By: Gypsy Mcmahon on 02-16-2022 Hemoglobin Auto test strip Ql (U) Negative Negative [facility] Urine leukocyte esterase det ection by automated test stripOrdered By: Gypsy Mcmahon on 02-16-2022 Leukocyte esterase Auto test strip Ql (U) 2+ Negative [facility] Urobilinogen Auto test strip (U) [Mass/Vol]Ordered By: Gypsy Mcmahon on 02-16-2022 Urobilinogen (U) [Mass/Vol] Normal mg/dL Normal [facility] pH Auto test strip (U)Ordere d By: Gypsy Mcmahon on 02-16-2022 pH (U) 5.5 [pH] 5.0-9.0 [facility] CBC AUTO DIFFon 01-15-2022 BASO # 0.0 103/ul Normal 0.0-0.1 [facility] Comment on above: Performed By: #### C BC #### [facility] [address] [place] [address] Dr. Anthony Bonilla Basophils/100 WBC (Bld) 0.5 % Normal 0.2-2.0 [facility] Comment on above: Performed By: #### C BC #### [facility] [address] [place] [address] Dr. Anthony Bonilla EO # 0.1 103/ul Normal 0.0-0.7 [facility] Comment on above: Performed By: #### C BC #### [facility] [address] [place] [address] Dr. Anthony Bonilla Eosinophils/100 WBC (Bld) 0.9 % Normal 0.9-7.0 [facility] Comment on above: Performed By: #### C BC #### [facility] [address] [place] [address] Dr. Anthony Bonilla Erythrocyte distribution width (RBC) [Ratio] 14.8 % Normal 11.0-15.0 [facility] Comment on above: Performed By: #### C BC #### [facility] [address] [place] [address] Dr. Anthony Bonilla Hematocrit (Bld) [Volume fraction] 30.3 % Critically low 36.0-48.0 [facility] Comment on above: Performed By: #### C BC #### [facility] [address] [place] [address] Dr. Anthony Bonilla Hemoglobin (Bld) [Mass/Vol] 9.8 g/dL Critically low 12.0-16.0 [facility] Comment on above: Performed By: #### C BC #### [facility] [address] [place] [address] Dr. Anthony Bonilla IG # 0.03 10e3/ul Normal 0.00-0.03 [facility] Comment on above: Performed By: #### C BC #### [facility] [address] [place] [address] Dr. Anthony Bonilla IG % 0.3 % Normal 0.0-0.5 [facility] Comment on above: Performed By: #### C BC #### [facility] [address] [place] [address] Dr. Anthony Bonilla LYMPH # 1.4 103/ul Normal 1.2-3.8 [facility] Comment on above: Performed By: #### C BC #### [facility] [address] [place] [address] Dr. Anthony Bonilla Lymphocytes/100 WBC (Bld) 15.7 % Critically low 20.5-60.0 [facility] Comment on above: Performed By: #### C BC #### [facility] [address] [place] [address] Dr. Anthony Bonilla MANUAL DIFF REQ NO Normal [facility] Comment on above: Performed By: #### C BC #### [facility] [address] [place] [address] Dr. Anthony Bonilla MCH (RBC) [Entitic mass] 30.0 pg Normal 26.7-34.0 [facility] Comment on above: Performed By: #### C BC #### [facility] [address] [place] [address] Dr. nAthony Bonilla MCHC (RBC) [Mass/Vol] 32.3 g/dL Normal 29.9-35.2 [facility] Comment on above: Performed By: #### C BC #### [facility] [address] [place] [address] Dr. Anthony Bonilla MCV (RBC) [Entitic vol] 92.7 fL Normal 81.0-99.0 [facility] Comment on above: Performed By: #### C BC #### [facility] [address] [address] [address] Anthony Bonilla MONO # 1.1 103/ul Critically high 0.3-0.8 [facility] Comment on above: Performed By: #### C BC #### [facility] [address] [address] [address] Anthony Bonilla Monocytes/100 WBC (Bld) 12.0 % Normal 1.7-12.0 [facility] Comment on above: Performed By: #### C BC #### [facility] [address] [address] [address] Anthony Bonilla NEUT # 6.2 103/ul Normal 1.4-6.5 [facility] Comment on above: Performed By: #### C BC #### [facility] [address] [place] [address] Dr. Anthony Bonilla Neutrophils/100 WBC (Bld) 70.6 % Normal 43.0-75.0 [facility] Comment on above: Performed By: #### C BC #### [facility] [address] [address] [address] Anthony Bonilla Platelet mean volume (Bld) [Entitic vol] 9.8 fL Normal 9.5-13.5 [facility] Comment on above: Performed By: #### C BC #### [facility] [address] [address] [address] Anthony Bonilla PLT 305 103/ul Normal 150-450 [facility] Comment on above: Performed By: #### C BC #### [facility] [address] [address] [address] Anthony Bonilla RBC 3.27 106/ul Critically low 4.20-5.40 [facility] Comment on above: Performed By: #### C BC #### [facility] [address] [address] [address] Anthony Bonilla WBC 8.7 103/ul Normal 4.0-11.0 [facility] Comment on above: Performed By: #### C BC #### [facility] [address] [address] [address] Anthony Bonilla PROF CHEM 8 (BAS METB)on Anion gap [Moles/Vol] 12.2 mmol/L Normal Th [facility] Comment on above: Performed By: #### U RCX #### [facility] [address] [address] [address] Anthony Bonilla Calcium [Mass/Vol] 9.1 mg/dL Normal 8.5-10.1 [facility] Comment on above: Performed By: #### U RCX #### [facility] [address] [address] [address] Anthony Bonilla Chloride [Moles/Vol] 104 mmol/L Normal 98-107 [facility] Comment on above: Performed By: #### U RCX #### [facility] [address] [place] [address] Dr. Anthony Bonilla CO2 [Moles/Vol] 24.4 mmol/L Normal 21.0-32.0 [facility] Comment on above: Performed By: #### U RCX #### [facility] [address] [address] [address] Anthony Bonilla Creatinine [Mass/Vol] 1.20 mg/dL Critically high 0.55-1.02 [facility] Comment on above: Performed By: #### U RCX #### [facility] [address] [address] [address] Anthony Bonilla EGFR-AF [place] 52 mL/min/1.73m2 Critically low >=60 [facility] Comment on above: Performed By: #### U RCX #### [facility] [address] [address] [address] Anthony Bonilla EGFR-NON AF [place] 43 mL/min/1.73m2 Critically low >=60 [facility] Comment on above: Performed By: #### U RCX #### [facility] [address] [address] [address] Anthony Bonilla Glucose [Mass/Vol] 81 mg/dL Normal 74-106 [facility] Comment on above: Performed By: #### U RCX #### [facility] [address] [address] [address] Anthony Bonilla Potassium [Moles/Vol] 3.6 mmol/L Normal 3.5-5.1 [facility] Comment on above: Performed By: #### U RCX #### [facility] [address] [address] [address] Anthony Bonilla Sodium [Moles/Vol] 137 mmol/L Normal 136-145 [facility] Comment on above: Performed By: #### U RCX #### [facility] [address] [address] [address] Anthony Bonilla Urea nitrogen [Mass/Vol] 21.0 mg/dL Critically high 7.0-18.0 [facility] Comment on above: Performed By: #### U RCX #### [facility] [address] [address] [address] Anthony Bonilla Urea nitrogen/Creatinine [Mass ratio] 17.5 mg/mg Normal [facility] Comment on above: Performed By: #### U RCX #### [facility] [address] [address] [address] Anthony Bonilla CULTURE URINEon 12-29-2021 CULTURE [...] F Trimethoprim/Sulfamethoxa zole <=20 S F Normal [facility] Comment on above: Performed By: #### U RCX #### [facility] [address] [place] [address] Dr. Anthony Bonilla ER URINE PROFILEon 2 Bilirubin Ql (U) SMALL Abnormal NEGATIVE [facility] Comment on above: Performed By: #### C BC #### [facility] [address] [place] [address] Dr. Anthony Bonilla Clarity (U) SL CLOUDY Abnormal CLEAR [facility] Comment on above: Performed By: #### C BC #### [facility] [address] [place] [address] Dr. Anthony Bonilla Color (U) YELLOW Normal YELLOW [facility] Comment on above: Performed By: #### C BC #### [facility] [address] [place] [address] Dr. Anthony BANGURA A micrscopic examina tion will be performed if indicated. Normal [facility] Comment on above: Performed By: #### C BC #### [facility] [address] [place] [address] Dr. Anthony Bonilla Glucose Ql (U) Negative Normal NEGATIVE [facility] Comment on above: Performed By: #### C BC #### [facility] [address] [place] [address] Dr. Anthony Bonilla Hemoglobin Ql (U) Negative Normal NEGATIVE [facility] Comment on above: Performed By: #### C BC #### [facility] [address] [place] [address] Dr. Anthony Bonilla Ketones Ql (U) TRACE Abnormal NEGATIVE [facility] Comment on above: Performed By: #### C BC #### [facility] [address] [place] [address] Dr. Anthony Bonilla LEUKOCYTES MODERATE Abnormal NEGATIVE [facility] Comment on above: Performed By: #### C BC #### [facility] [address] [place] [address] Dr. Anthony Bonilla Nitrite Ql (U) Positive Abnormal NEGATIVE [facility] Comment on above: Performed By: #### C BC #### [facility] [address] [place] [address] Dr. Anthony Bonilla pH (U) 7.5 [pH] Normal 5-9 [facility] Comment on above: Performed By: #### C BC #### [facility] [address] [place] [address] Dr. Antohny Bonilla Protein (U) [Mass/Vol] 30 mg/dL Abnormal NEGAT JAMAR/ TRACE [facility] Comment on above: Performed By: #### C BC #### [facility] [address] [place] [address] Dr. Atnhony Bonilla SPEC GRAVITY 1.020 Normal 1.005-<=1. 025 [facility] Comment on above: Performed By: #### C BC #### [facility] [address] [place] [address] Dr. Anthony Bonilla UR MICRO IND INDICATED Normal [facility] Comment on above: Performed By: #### C BC #### [facility] [address] [place] [address] Dr. Anthony Bonilla Urobilinogen Qn (U) 0.2 {Gen'U}/dL Normal 0.2 - 1. 0 [facility] Comment on above: Performed By: #### C BC #### [facility] [address] [place] [address] Dr. Anthony Bonilla URINE MICROSCOPIC ONLYon BACTERIA TRACE Abnormal NONE SEEN [facility] Comment on above: Performed By: #### C BC #### [facility] [address] [place] [address] Dr. Anthony Bonilla Bacteria identified Cx Nom (U) INDICATED Normal [facility] Comment on above: Performed By: #### C BC #### [facility] [address] [place] [address] Dr. Anthony Bonilla CAST NONE SEEN Normal NONE SEEN [facility] Comment on above: Performed By: #### C BC #### [facility] [address] [place] [address] Dr. Anthony Bonilla Crystals LM Nom (Urine sed) NONE SEEN Normal NONE SEEN [facility] Comment on above: Performed By: #### C BC #### [facility] [address] [place] [address] Dr. Anthony Bonilla Epithelial cells LM Ql (Urine sed) FEW Abnormal NONE SEEN /RARE [facility] Comment on above: Performed By: #### C BC #### [facility] [address] [place] [address] Dr. Anthony Bonilla MUCOUS NONE SEEN Normal NONE SEEN [facility] Comment on above: Performed By: #### C BC #### [facility] [address] [place] [address] Dr. Anthony Bonilla RBC 0-2 Normal 0-2 [facility] Comment on above: Performed By: #### C BC #### [facility] [address] [place] [address] Dr. Anthony Bonilla WBC 5-10 Abnormal NONE SEEN [facility] Comment on above: Performed By: #### C BC #### [facility] [address] [place] [address] Dr. Anthony oBnilla PRBC LEUKOREDUCEDon 11-20-19 PRBC LEUKOREDUCED Cross Match Result Compatible Unit Blood Type A Pos Unit Number [id number] Status Information Transfused Product ID Red Blood Cells Product Code [id number] Normal [facility] Comment on above: Performed By: #### P RBC #### [facility] [address] [place] [address] Dr. Anthony Bonilla CBC AUTO DIFFon 11-10-2021 BASO # 0.0 103/ul Normal 0.0-0.1 [facility] Comment on above: Performed By: #### C BC #### [facility] [address] [place] [address] Dr. Anthony Bonilla Basophils/100 WBC (Bld) 0.7 % Normal 0.2-2.0 [facility] Comment on above: Performed By: #### C BC #### [facility] [address] [place] [address] Dr. Anthony Bonilla EO # 0.2 103/ul Normal 0.0-0.7 [facility] Comment on above: Performed By: #### C BC #### [facility] [address] [place] [address] Dr. Anthony Bonilla Eosinophils/100 WBC (Bld) 2.7 % Normal 0.9-7.0 [facility] Comment on above: Performed By: #### C BC #### [facility] [address] [place] [address] Dr. Anthony Bonilla Erythrocyte distribution width (RBC) [Ratio] 16.3 % Critically high 11.0-15.0 [facility] Comment on above: Performed By: #### C BC #### [facility] [address] [place] [address] Dr. Anthony Bonilla Hematocrit (Bld) [Volume fraction] 29.0 % Critically low 36.0-48.0 [facility] Comment on above: Performed By: #### C BC #### [facility] [address] [place] [address] Dr. Anthony Bonilla Hemoglobin (Bld) [Mass/Vol] 9.4 g/dL Critically low 12.0-16.0 [facility] Comment on above: Performed By: #### C BC #### [facility] [address] [place] [address] Dr. Anthony Bonilla IG # 0.04 10e3/ul Critically high 0.00-0.03 [facility] Comment on above: Performed By: #### C BC #### [facility] [address] [place] [address] Dr. Anthony Bonilla IG % 0.7 % Critically high 0.0-0.5 [facility] Comment on above: Performed By: #### C BC #### [facility] [address] [place] [address] Dr. Anthony Bonilla LYMPH # 1.2 103/ul Normal 1.2-3.8 [facility] Comment on above: Performed By: #### C BC #### [facility] [address] [place] [address] Dr. Anthony Bonilla Lymphocytes/100 WBC (Bld) 21.5 % Normal 20.5-60.0 [facility] Comment on above: Performed By: #### C BC #### [facility] [address] [place] [address] Dr. Anthony Bonilla MANUAL DIFF REQ NO Normal [facility] Comment on above: Performed By: #### C BC #### [facility] [address] [place] [address] Dr. Anthony Bonilla MCH (RBC) [Entitic mass] 32.3 pg Normal 26.7-34.0 [facility] Comment on above: Performed By: #### C BC #### [facility] [address] [place] [address] Dr. Anthony Bonilla MCHC (RBC) [Mass/Vol] 32.4 g/dL Normal 29.9-35.2 [facility] Comment on above: Performed By: #### C BC #### [facility] [address] [place] [address] Dr. Anthony Bonilla MCV (RBC) [Entitic vol] 99.7 fL Critically high 81.0-99.0 [facility] Comment on above: Performed By: #### C BC #### [facility] [address] [place] [address] Dr. Anthony Bonilla MONO # 0.7 103/ul Normal 0.3-0.8 [facility] Comment on above: Performed By: #### C BC #### [facility] [address] [place] [address] Dr. Anthony Bonilla Monocytes/100 WBC (Bld) 12.6 % Critically high 1.7-12.0 [facility] Comment on above: Performed By: #### C BC #### [facility] [address] [place] [address] Dr. Anthony Bonilla NEUT # 3.4 103/ul Normal 1.4-6.5 [facility] Comment on above: Performed By: #### C BC #### [facility] [address] [address] [address] Anthony Bonilla Neutrophils/100 WBC (Bld) 61.8 % Normal 43.0-75.0 [facility] Comment on above: Performed By: #### C BC #### [facility] [address] [address] [address] Anthony Bonilla Platelet mean volume (Bld) [Entitic vol] 9.0 fL Critically low 9.5-13.5 [facility] Comment on above: Performed By: #### C BC #### [facility] [address] [address] [address] Anthony Bonilla PLT 429 103/ul Normal 150-450 [facility] Comment on above: Performed By: #### C BC #### [facility] [address] [address] [address] Anthony Bonilla RBC 2.91 106/ul Critically low 4.20-5.40 [facility] Comment on above: Performed By: #### C BC #### [facility] [address] [address] [address] Anthony Bonilla WBC 5.5 103/ul Normal 4.0-11.0 [facility] Comment on above: Performed By: #### C BC #### [facility] [address] [address] [address] Anthony Bonilla PROF CHEM 8 (BAS METB)on Anion gap [Moles/Vol] 11.0 mmol/L Normal [facility] Comment on above: Performed By: #### B MP #### [facility] [address] [address] [address] Anthony Bonilla Calcium [Mass/Vol] 9.2 mg/dL Normal 8.5-10.1 [facility] Comment on above: Performed By: #### B MP #### [facility] [address] [address] [address] Anthony Bonilla Chloride [Moles/Vol] 107 mmol/L Normal 98-107 [facility] Comment on above: Performed By: #### B MP #### [facility] [address] [address] [address] Anthony Bonilla CO2 [Moles/Vol] 27.4 mmol/L Normal 21.0-32.0 [facility] Comment on above: Performed By: #### B MP #### [facility] [address] [address] [address] Anthony Bonilla Creatinine [Mass/Vol] 1.12 mg/dL Critically high 0.55-1.02 [facility] Comment on above: Performed By: #### B MP #### [facility] [address] [address] [address] Anthony Bonilla EGFR-AF [place] 56 mL/min/1.73m2 Critically low >=60 [facility] Comment on above: Performed By: #### B MP #### [facility] [address] [address] [address] Anthony Bonilla EGFR-NON AF [place] 46 mL/min/1.73m2 Critically low >=60 [facility] Comment on above: Performed By: #### B MP #### [facility] [address] [address] [address] Anthony Bonilla Glucose [Mass/Vol] 89 mg/dL Normal 74-106 [facility] Comment on above: Performed By: #### B MP #### [facility] [address] [address] [address] Anthony Bonilla Potassium [Moles/Vol] 4.4 mmol/L Normal 3.5-5.1 [facility] Comment on above: Performed By: #### B MP #### [facility] [address] [address] [address] Anthony Bonilla Sodium [Moles/Vol] 141 mmol/L Normal 136-145 [facility] Comment on above: Performed By: #### B MP #### [facility] [address] [address] [address] Anthony Bonilla Urea nitrogen [Mass/Vol] 18.0 mg/dL Normal 7.0-18.0 [facility] Comment on above: Performed By: #### B MP #### [facility] [address] [place] [address] Dr. Anthony Bonilla Urea nitrogen/Creatinine [Mass ratio] 16.1 mg/mg Normal [facility] Comment on above: Performed By: #### B MP #### [facility] [address] [place] [address] Dr. Anthony Bonilla CBC AUTO DIFFon 11-04-2021 BASO # 0.0 103/ul Normal 0.0-0.1 [facility] Comment on above: Performed By: #### C BC #### [facility] [address] [place] [address] Dr. Anthony Bonilla Basophils/100 WBC (Bld) 0.2 % Normal 0.2-2.0 [facility] Comment on above: Performed By: #### C BC #### [facility] [address] [place] [address] Dr. Anthony Bonilla EO # 0.1 103/ul Normal 0.0-0.7 [facility] Comment on above: Performed By: #### C BC #### [facility] [address] [place] [address] Dr. Anthony Bonilla Eosinophils/100 WBC (Bld) 0.8 % Critically low 0.9-7.0 [facility] Comment on above: Performed By: #### C BC #### [facility] [address] [place] [address] Dr. Anthony Bonilla Erythrocyte distribution width (RBC) [Ratio] 16.7 % Critically high 11.0-15.0 [facility] Comment on above: Performed By: #### C BC #### [facility] [address] [place] [address] Dr. Anthony Bonilla Hematocrit (Bld) [Volume fraction] 25.6 % Critically low 36.0-48.0 [facility] Comment on above: Performed By: #### C BC #### [facility] [address] [place] [address] Dr. Anthony Bonilla Hemoglobin (Bld) [Mass/Vol] 8.5 g/dL Critically low 12.0-16.0 [facility] Comment on above: Performed By: #### C BC #### [facility] [address] [address] [address] Anthony Bonilla IG # 0.05 10e3/ul Critically high 0.00-0.03 [facility] Comment on above: Performed By: #### C BC #### [facility] [address] [address] [address] Anthony Bonilla IG % 0.5 % Normal 0.0-0.5 [facility] Comment on above: Performed By: #### C BC #### [facility] [address] [address] [address] Anthony Bonilla LYMPH # 0.6 103/ul Critically low 1.2-3.8 [facility] Comment on above: Performed By: #### C BC #### [facility] [address] [place] [address] Dr. Anthony Bonilla Lymphocytes/100 WBC (Bld) 6.2 % Critically low 20.5-60.0 [facility] Comment on above: Performed By: #### C BC #### [facility] [address] [address] [address] Anthony Bonilla MANUAL DIFF REQ NO Normal [facility] Comment on above: Performed By: #### C BC #### [facility] [address] [place] [address] Dr. Anthony Bonilla MCH (RBC) [Entitic mass] 31.6 pg Normal 26.7-34.0 [facility] Comment on above: Performed By: #### C BC #### [facility] [address] [place] [address] Dr. Anthony Bonilla MCHC (RBC) [Mass/Vol] 33.2 g/dL Normal 29.9-35.2 [facility] Comment on above: Performed By: #### C BC #### [facility] [address] [place] [address] Dr. Anthony Bonilla MCV (RBC) [Entitic vol] 95.2 fL Normal 81.0-99.0 [facility] Comment on above: Performed By: #### C BC #### [facility] [address] [address] [address] Anthony Bonilla MONO # 0.6 103/ul Normal 0.3-0.8 [facility] Comment on above: Performed By: #### C BC #### [facility] [address] [address] [address] Anthony Bonilla Monocytes/100 WBC (Bld) 6.1 % Normal 1.7-12.0 [facility] Comment on above: Performed By: #### C BC #### [facility] [address] [place] [address] Dr. Anthony Bonilla NEUT # 8.8 103/ul Critically high 1.4-6.5 [facility] Comment on above: Performed By: #### C BC #### [facility] [address] [place] [address] Dr. Anthony Bonilla Neutrophils/100 WBC (Bld) 86.2 % Critically high 43.0-75.0 [facility] Comment on above: Performed By: #### C BC #### [facility] [address] [place] [address] Dr. Anthony Bonilla Platelet mean volume (Bld) [Entitic vol] 9.8 fL Normal 9.5-13.5 [facility] Comment on above: Performed By: #### C BC #### [facility] [address] [place] [address] Dr. Anthony Bonilla PLT 156 103/ul Normal 150-450 [facility] Comment on above: Performed By: #### C BC #### [facility] [address] [place] [address] Dr. Anthony Bonilla RBC 2.69 106/ul Critically low 4.20-5.40 [facility] Comment on above: Performed By: #### C BC #### [facility] [address] [place] [address] Dr. Anthony Bonilla WBC 10.3 103/ul Normal 4.0-11.0 [facility] Comment on above: Performed By: #### C BC #### [facility] [address] [place] [address] Dr. Anthony Bonilla CULTURE URINEon 11-04-2021 CULTURE [...] F Trimethoprim/Sulfamethoxa zole <=20 S F Normal [facility] Comment on above: Performed By: #### U RCX #### [facility] [address] [place] [address] Dr. Anthony Bonilla PROF CHEM 8 (BAS METB)on Anion gap [Moles/Vol] 12.9 mmol/L Normal [facility] Comment on above: Performed By: #### U RCX #### [facility] [address] [place] [address] Dr. Anthony Bonilla Calcium [Mass/Vol] 8.6 mg/dL Normal 8.5-10.1 [facility] Comment on above: Performed By: #### U RCX #### [facility] [address] [place] [address] Dr. Anthony Bonilla Chloride [Moles/Vol] 108 mmol/L Critically high 98-107 [facility] Comment on above: Performed By: #### U RCX #### [facility] [address] [place] [address] Dr. Anthony Bonilla CO2 [Moles/Vol] 23.1 mmol/L Normal 21.0-32.0 [facility] Comment on above: Performed By: #### U RCX #### [facility] [address] [place] [address] Dr. Anthony Bonilla Creatinine [Mass/Vol] 0.98 mg/dL Normal 0.55-1.02 [facility] Comment on above: Performed By: #### U RCX #### [facility] [address] [address] [address] Anthony Bonilla EGFR-AF [place] >60 Normal >=60 [facility] Comment on above: Performed By: #### U RCX #### [facility] [address] [address] [address] Anthony Bonilla EGFR-NON AF [place] 54 mL/min/1.73m2 Critically low >=60 [facility] Comment on above: Performed By: #### U RCX #### [facility] [address] [address] [address] Anthony Bonilla Glucose [Mass/Vol] 86 mg/dL Normal 74-106 [facility] Comment on above: Performed By: #### U RCX #### [facility] [address] [address] [address] Anthony Bonilla Potassium [Moles/Vol] 4.0 mmol/L Normal 3.5-5.1 [facility] Comment on above: Performed By: #### U RCX #### [facility] [address] [address] [address] Anthony Bonilla Sodium [Moles/Vol] 140 mmol/L Normal 136-145 [facility] Comment on above: Performed By: #### U RCX #### [facility] [address] [address] [address] Anthony Bonilla Urea nitrogen [Mass/Vol] 31.0 mg/dL Critically high 7.0-18.0 [facility] Comment on above: Performed By: #### U RCX #### [facility] [address] [address] [address] Anthony Bonilla Urea nitrogen/Creatinine [Mass ratio] 31.6 mg/mg Normal [facility] Comment on above: Performed By: #### U RCX #### [facility] [address] [address] [address] Anthony Bonilla CBC AUTO DIFFon 11-03-2021 BASO # 0.0 103/ul Normal 0.0-0.1 [facility] Comment on above: Performed By: #### C BC #### [facility] [address] [place] [address] Dr. Anthony Bonilla Basophils/100 WBC (Bld) 0.3 % Normal 0.2-2.0 [facility] Comment on above: Performed By: #### C BC #### [facility] [address] [place] [address] Dr. Anthony Bonilla EO # 0.1 103/ul Normal 0.0-0.7 [facility] Comment on above: Performed By: #### C BC #### [facility] [address] [place] [address] Dr. Anthony Bonilla Eosinophils/100 WBC (Bld) 0.6 % Critically low 0.9-7.0 [facility] Comment on above: Performed By: #### C BC #### [facility] [address] [place] [address] Dr. Anthony Bonilla Erythrocyte distribution width (RBC) [Ratio] 14.0 % Normal 11.0-15.0 [facility] Comment on above: Performed By: #### C BC #### [facility] [address] [place] [address] Dr. Anthony Bonilla Hematocrit (Bld) [Volume fraction] 23.1 % Critically low 36.0-48.0 [facility] Comment on above: Result Comment: Flui ds given Performed By: #### C BC #### [facility] [address] [place] [address] Dr. Anthony Bonilla Hemoglobin (Bld) [Mass/Vol] 7.6 g/dL Critically low 12.0-16.0 [facility] Comment on above: Performed By: #### C BC #### [facility] [address] [place] [address] Dr. Anthony Bonilla IG # 0.07 10e3/ul Critically high 0.00-0.03 [facility] Comment on above: Performed By: #### C BC #### [facility] [address] [place] [address] Dr. Anthony Bonilla IG % 0.6 % Critically high 0.0-0.5 [facility] Comment on above: Performed By: #### C BC #### [facility] [address] [place] [address] Dr. Anthony Bonilla LYMPH # 0.7 103/ul Critically low 1.2-3.8 [facility] Comment on above: Performed By: #### C BC #### [facility] [address] [place] [address] Dr. Anthony Bonilla Lymphocytes/100 WBC (Bld) 5.7 % Critically low 20.5-60.0 [facility] Comment on above: Performed By: #### C BC #### [facility] [address] [place] [address] Dr. Anthony Bonilla MANUAL DIFF REQ NO Normal [facility] Comment on above: Performed By: #### C BC #### [facility] [address] [place] [address] Dr. Anthony Bonilla MCH (RBC) [Entitic mass] 32.6 pg Normal 26.7-34.0 [facility] Comment on above: Performed By: #### C BC #### [facility] [address] [place] [address] Dr. Anthony Bonilla MCHC (RBC) [Mass/Vol] 32.9 g/dL Normal 29.9-35.2 [facility] Comment on above: Performed By: #### C BC #### [facility] [address] [place] [address] Dr. Anthony Bonilla MCV (RBC) [Entitic vol] 99.1 fL Critically high 81.0-99.0 [facility] Comment on above: Performed By: #### C BC #### [facility] [address] [place] [address] Dr. Anthony Bonilla MONO # 0.8 103/ul Normal 0.3-0.8 [facility] Comment on above: Performed By: #### C BC #### [facility] [address] [place] [address] Dr. Anthony Bonilla Monocytes/100 WBC (Bld) 6.8 % Normal 1.7-12.0 [facility] Comment on above: Performed By: #### C BC #### [facility] [address] [address] [address] Anthony Bonilla NEUT # 9.8 103/ul Critically high 1.4-6.5 [facility] Comment on above: Performed By: #### C BC #### [facility] [address] [address] [address] Anthony Bonilla Neutrophils/100 WBC (Bld) 86.0 % Critically high 43.0-75.0 [facility] Comment on above: Performed By: #### C BC #### [facility] [address] [place] [address] Dr. Anthony Bonilla Platelet mean volume (Bld) [Entitic vol] 9.5 fL Normal 9.5-13.5 [facility] Comment on above: Performed By: #### C BC #### [facility] [address] [place] [address] Dr. Anthony Bonilla PLT 160 103/ul Normal 150-450 [facility] Comment on above: Performed By: #### C BC #### [facility] [address] [place] [address] Dr. Anthony Bonilla RBC 2.33 106/ul Critically low 4.20-5.40 [facility] Comment on above: Performed By: #### C BC #### [facility] [address] [place] [address] Dr. Anthony Bonilla WBC 11.4 103/ul Critically high 4.0-11.0 [facility] Comment on above: Performed By: #### C BC #### [facility] [address] [place] [address] Dr. Anthony Bonilla HEMOGLOBIN AND HEMATOCRITon 11-03-2021 Hematocrit (Bld) [Volume fraction] 27.0 % Critically low 36.0-48.0 [facility] Comment on above: Performed By: #### U RCX #### [facility] [address] [place] [address] Dr. Anthony Bonilla Hemoglobin (Bld) [Mass/Vol] 9.1 g/dL Critically low 12.0-16.0 [facility] Comment on above: Performed By: #### U RCX #### [facility] [address] [place] [address] Dr. Anthony Bonilla OCC BLD IMMUNO SCREENon 10-10 OCCULT BLOOD Positive Abnormal NEGATIVE [facility] Comment on above: Performed By: #### C BC #### [facility] [address] [place] [address] Dr. Anthony Bonilla PROF CHEM 8 (BAS METB)on Anion gap [Moles/Vol] 10.7 mmol/L Normal [facility] Comment on above: Performed By: #### C BC #### [facility] [address] [place] [address] Dr. Anthony Bonilla Calcium [Mass/Vol] 8.6 mg/dL Normal 8.5-10.1 [facility] Comment on above: Performed By: #### C BC #### [facility] [address] [place] [address] Dr. Anthony Bonilla Chloride [Moles/Vol] 107 mmol/L Normal 98-107 [facility] Comment on above: Performed By: #### C BC #### [facility] [address] [place] [address] Dr. Anthony Bonilla CO2 [Moles/Vol] 24.4 mmol/L Normal 21.0-32.0 [facility] Comment on above: Performed By: #### C BC #### [facility] [address] [place] [address] Dr. Anthony Bonilla Creatinine [Mass/Vol] 0.98 mg/dL Normal 0.55-1.02 [facility] Comment on above: Performed By: #### C BC #### [facility] [address] [place] [address] Dr. Anthony Bonilla EGFR-AF [place] >60 Normal >=60 [facility] Comment on above: Performed By: #### C BC #### [facility] [address] [place] [address] Dr. Anthony Bonilla EGFR-NON AF [place] 54 mL/min/1.73m2 Critically low >=60 [facility] Comment on above: Performed By: #### C BC #### [facility] [address] [address] [address] Anthony Bonilla Glucose [Mass/Vol] 98 mg/dL Normal 74-106 [facility] Comment on above: Performed By: #### C BC #### [facility] [address] [address] [address] Anthony Bonilla Potassium [Moles/Vol] 4.1 mmol/L Normal 3.5-5.1 [facility] Comment on above: Performed By: #### C BC #### [facility] [address] [place] [address] Dr. Anthony Bonilla Sodium [Moles/Vol] 138 mmol/L Normal 136-145 [facility] Comment on above: Performed By: #### C BC #### [facility] [address] [place] [address] Dr. Anthony Bonilla Urea nitrogen [Mass/Vol] 43.0 mg/dL Critically high 7.0-18.0 [facility] Comment on above: Performed By: #### C BC #### [facility] [address] [place] [address] Dr. Anthony Bonilla Urea nitrogen/Creatinine [Mass ratio] 43.9 mg/mg Normal [facility] Comment on above: Performed By: #### C BC #### [facility] [address] [place] [address] Dr. Anthony Bonilla TYPE AND SCREENon 11-03-2021 TYPE AND SCREEN Negative Normal [facility] Comment on above: Performed By: #### C BC #### [facility] [address] [place] [address] Dr. Anthony Bonilla CBC AUTO DIFFon 11-02-2021 BASO # 0.0 103/ul Normal 0.0-0.1 [facility] Comment on above: Performed By: #### U RCX #### [facility] [address] [place] [address] Dr. Anthony Bonilla Basophils/100 WBC (Bld) 0.3 % Normal 0.2-2.0 [facility] Comment on above: Performed By: #### U RCX #### [facility] [address] [place] [address] Dr. Anthony Bonilla EO # 0.0 103/ul Normal 0.0-0.7 [facility] Comment on above: Performed By: #### U RCX #### [facility] [address] [place] [address] Dr. Anthony Bonilla Eosinophils/100 WBC (Bld) 0.1 % Critically low 0.9-7.0 [facility] Comment on above: Performed By: #### U RCX #### [facility] [address] [place] [address] Dr. Anthony Bonilla Erythrocyte distribution width (RBC) [Ratio] 13.9 % Normal 11.0-15.0 [facility] Comment on above: Performed By: #### U RCX #### [facility] [address] [place] [address] Dr. Anthony Bonilla Hematocrit (Bld) [Volume fraction] 31.8 % Critically low 36.0-48.0 [facility] Comment on above: Performed By: #### U RCX #### [facility] [address] [place] [address] Dr. Anthony Bonilla Hemoglobin (Bld) [Mass/Vol] 10.5 g/dL Critically low 12.0-16.0 [facility] Comment on above: Performed By: #### U RCX #### [facility] [address] [place] [address] Dr. Anthony Bonilla IG # 0.07 10e3/ul Critically high 0.00-0.03 [facility] Comment on above: Performed By: #### U RCX #### [facility] [address] [place] [address] Dr. Anthony Bonilla IG % 0.5 % Normal 0.0-0.5 [facility] Comment on above: Performed By: #### U RCX #### [facility] [address] [place] [address] Dr. Anthony Bonilla LYMPH # 0.9 103/ul Critically low 1.2-3.8 [facility] Comment on above: Performed By: #### U RCX #### [facility] [address] [place] [address] Dr. Anthony Bonilla Lymphocytes/100 WBC (Bld) 6.1 % Critically low 20.5-60.0 [facility] Comment on above: Performed By: #### U RCX #### [facility] [address] [address] [address] Anthony Bonilla MANUAL DIFF REQ NO Normal [facility] Comment on above: Performed By: #### U RCX #### [facility] [address] [place] [address] Dr. Anthony Bonilla MCH (RBC) [Entitic mass] 32.7 pg Normal 26.7-34.0 [facility] Comment on above: Performed By: #### U RCX #### [facility] [address] [place] [address] Dr. Anthony Bonilla MCHC (RBC) [Mass/Vol] 33.0 g/dL Normal 29.9-35.2 [facility] Comment on above: Performed By: #### U RCX #### [facility] [address] [place] [address] Dr. Anthony Bonilla MCV (RBC) [Entitic vol] 99.1 fL Critically high 81.0-99.0 [facility] Comment on above: Performed By: #### U RCX #### [facility] [address] [place] [address] Dr. Anthony Bonilla MONO # 1.0 103/ul Critically high 0.3-0.8 [facility] Comment on above: Performed By: #### U RCX #### [facility] [address] [place] [address] Dr. Anthony Bonilla Monocytes/100 WBC (Bld) 6.8 % Normal 1.7-12.0 [facility] Comment on above: Performed By: #### U RCX #### [facility] [address] [place] [address] Dr. Anthony Bonilla NEUT # 12.1 103/ul Critically high 1.4-6.5 [facility] Comment on above: Performed By: #### U RCX #### [facility] [address] [place] [address] Dr. Anthony Bonilla Neutrophils/100 WBC (Bld) 86.2 % Critically high 43.0-75.0 [facility] Comment on above: Performed By: #### U RCX #### [facility] [address] [place] [address] Dr. Anthony Bonilla Platelet mean volume (Bld) [Entitic vol] 9.8 fL Normal 9.5-13.5 [facility] Comment on above: Performed By: #### U RCX #### [facility] [address] [place] [address] Dr. Anthony Bonilla PLT 175 103/ul Normal 150-450 [facility] Comment on above: Performed By: #### U RCX #### [facility] [address] [place] [address] Dr. Anthony Bonilla RBC 3.21 106/ul Critically low 4.20-5.40 [facility] Comment on above: Performed By: #### U RCX #### [facility] [address] [place] [address] Dr. Anthony Bonilla WBC 14.0 103/ul Critically high 4.0-11.0 [facility] Comment on above: Performed By: #### U RCX #### [facility] [address] [place] [address] HEAD WO CONon [...] by: HERNANDO HAMLIN Date: 2021-11-01 22:36 Normal [facility] PROF CHEM 8 (BAS METB)on Anion gap [Moles/Vol] 12.2 mmol/L Normal [facility] Comment on above: Performed By: #### C BC #### [facility] [address] [address] [address] Anthony Bonilla Calcium [Mass/Vol] 8.7 mg/dL Normal 8.5-10.1 [facility] Comment on above: Performed By: #### C BC #### [facility] [address] [address] [address] Anthony Bonilla Chloride [Moles/Vol] 103 mmol/L Normal 98-107 [facility] Comment on above: Performed By: #### C BC #### [facility] [address] [address] [address] Anthony Bonilla CO2 [Moles/Vol] 25.7 mmol/L Normal 21.0-32.0 [facility] Comment on above: Performed By: #### C BC #### [facility] [address] [address] [address] Anthony Bonilla Creatinine [Mass/Vol] 1.08 mg/dL Critically high 0.55-1.02 [facility] Comment on above: Performed By: #### C BC #### [facility] [address] [address] [address] Anthony Bonilla EGFR-AF [place]IZ[place] 58 mL/min/1.73m2 Critically low >=60 [facility] Comment on above: Performed By: #### C BC #### [facility] [address] [address] [address] Anthony Bonilla EGFR-NON AF [place] 48 mL/min/1.73m2 Critically low >=60 [facility] Comment on above: Performed By: #### C BC #### [facility] [address] [address] [address] Anthony Bonilla Glucose [Mass/Vol] 84 mg/dL Normal 74-106 [facility] Comment on above: Performed By: #### C BC #### [facility] [address] [address] [address] Anthony Bonilla Potassium [Moles/Vol] 4.9 mmol/L Normal 3.5-5.1 [facility] Comment on above: Performed By: #### C BC #### [facility] [address] [address] [address] Anthony Bonilla Sodium [Moles/Vol] 136 mmol/L Normal 136-145 [facility] Comment on above: Performed By: #### C BC #### [facility] [address] [address] [address] Anthony Bonilla Urea nitrogen [Mass/Vol] 33.0 mg/dL Critically high 7.0-18.0 [facility] Comment on above: Performed By: #### C BC #### [facility] [address] [address] [address] Anthony Bonilla Urea nitrogen/Creatinine [Mass ratio] 30.6 mg/mg Normal [facility] Comment on above: Performed By: #### C BC #### [facility] [address] [address] [address] Anthony Bonilla XR CHEST 1 Von [...] GIANA HOLLY Date: 2021-11-01 22:05 Normal [facility] CARDIAC DARWIN ADMITon 022 CK [Catalytic activity/Vol] 92 U/L Normal 26-192 [facility] Comment on above: Performed By: #### C BC #### [facility] [address] [place] [address] Dr. Anthony Bonilla CK.MB [Mass/Vol] 1.73 ng/mL Normal <=3.60 [facility] Comment on above: Performed By: #### C BC #### [facility] [address] [place] [address] Dr. Anthony Bonilla HSTROP 20.0 pg/mL Normal 4.0-51.3 [facility] Comment on above: Result Comment: CUT- OFF POINTS HAVE BEEN ESTABLISHED BASED ON THE FOURTH UNIVERSAL DEFINITIONS OF MYOCARDIAL INFARCTION. THE UPPER REFERENCE LIMIT (URL) OF TROPONIN, DEFINED THE 99TH PERCENTILE OF cTnI DISTRIBUTION IN A REFERENCE POPULATION, HAS BEEN CONFIRMED THE DECISION THRESHOLD FOR ND DIAGNOSIS. Performed By: #### C BC #### [facility] [address] [place] [address] Dr. Anthony Bonilla CANDIDA 58 ng/mL Normal 9-82 [facility] Comment on above: Performed By: #### C BC #### [facility] [address] [place] [address] Dr. Anthony Bonilla CBC AUTO DIFFon 11-01-2021 BASO # 0.0 103/ul Normal 0.0-0.1 [facility] Comment on above: Performed By: #### U RCX #### [facility] [address] [place] [address] Dr. Anthony Bonilla Basophils/100 WBC (Bld) 0.2 % Normal 0.2-2.0 [facility] Comment on above: Performed By: #### U RCX #### [facility] [address] [place] [address] Dr. Anthony Bonilla EO # 0.0 103/ul Normal 0.0-0.7 [facility] Comment on above: Performed By: #### U RCX #### [facility] [address] [place] [address] Dr. Anthony Bonilla Eosinophils/100 WBC (Bld) 0.0 % Critically low 0.9-7.0 [facility] Comment on above: Performed By: #### U RCX #### [facility] [address] [address] [address] Anthony Bonilla Erythrocyte distribution width (RBC) [Ratio] 14.1 % Normal 11.0-15.0 [facility] Comment on above: Performed By: #### U RCX #### [facility] [address] [place] [address] Dr. Anthony Bonilla Hematocrit (Bld) [Volume fraction] 36.0 % Normal 36.0-48.0 [facility] Comment on above: Performed By: #### U RCX #### [facility] [address] [place] [address] Dr. Anthony Bonilla Hemoglobin (Bld) [Mass/Vol] 12.1 g/dL Normal 12.0-16.0 [facility] Comment on above: Performed By: #### U RCX #### [facility] [address] [place] [address] Dr. Anthony Bonilla IG # 0.11 10e3/ul Critically high 0.00-0.03 [facility] Comment on above: Performed By: #### U RCX #### [facility] [address] [place] [address] Dr. Anthony Bonilla IG % 0.5 % Normal 0.0-0.5 [facility] Comment on above: Performed By: #### U RCX #### [facility] [address] [place] [address] Dr. Anthony Bonilla LYMPH # 0.7 103/ul Critically low 1.2-3.8 [facility] Comment on above: Performed By: #### U RCX #### [facility] [address] [place] [address] Dr. Anthony Bonilla Lymphocytes/100 WBC (Bld) 3.2 % Critically low 20.5-60.0 [facility] Comment on above: Performed By: #### U RCX #### [facility] [address] [place] [address] Dr. Anthony Bonilla MANUAL DIFF REQ NO Normal [facility] Comment on above: Performed By: #### U RCX #### [facility] [address] [address] [address] Anthony Bonilla MCH (RBC) [Entitic mass] 33.0 pg Normal 26.7-34.0 [facility] Comment on above: Performed By: #### U RCX #### [facility] [address] [place] [address] Dr. Anthony Bonilla MCHC (RBC) [Mass/Vol] 33.6 g/dL Normal 29.9-35.2 [facility] Comment on above: Performed By: #### U RCX #### [facility] [address] [place] [address] Dr. Anthony Bonilla MCV (RBC) [Entitic vol] 98.1 fL Normal 81.0-99.0 [facility] Comment on above: Performed By: #### U RCX #### [facility] [address] [place] [address] Dr. Anthony Bonilla MONO # 1.1 103/ul Critically high 0.3-0.8 [facility] Comment on above: Performed By: #### U RCX #### [facility] [address] [place] [address] Dr. Anthony Bonilla Monocytes/100 WBC (Bld) 4.8 % Normal 1.7-12.0 [facility] Comment on above: Performed By: #### U RCX #### [facility] [address] [place] [address] Dr. Anthony Bonilla NEUT # 20.3 103/ul Critically high 1.4-6.5 [facility] Comment on above: Performed By: #### U RCX #### [facility] [address] [place] [address] Dr. Anthony Bonilla Neutrophils/100 WBC (Bld) 91.3 % Critically high 43.0-75.0 [facility] Comment on above: Performed By: #### U RCX #### [facility] [address] [place] [address] Dr. Anthony Bonilla Platelet mean volume (Bld) [Entitic vol] 10.8 fL Normal 9.5-13.5 [facility] Comment on above: Performed By: #### U RCX #### [facility] [address] [place] [address] Dr. Anthony Bonilla PLT 179 103/ul Normal 150-450 [facility] Comment on above: Performed By: #### U RCX #### [facility] [address] [place] [address] Dr. Anthony Bonilla RBC 3.67 106/ul Critically low 4.20-5.40 [facility] Comment on above: Performed By: #### U RCX #### [facility] [address] [place] [address] Dr. Anthony Bonilla WBC 22.2 103/ul Critically high 4.0-11.0 [facility] Comment on above: Performed By: #### U RCX #### [facility] [address] [place] [address] Dr. Anthony Bonilla CULTURE BLOODon 11-01-2021 Microscopic examination of blood, culture Culture Observations: NO GROWTH AT 5 DAYS. Normal [facility] Comment on above: Performed By: #### B [id number] #### [facility] [address] [place] [address] Dr. Anthony Bonilla Performed By: #### C BC #### [facility] [address] [place] [address] Dr. Anthony Bonilla Covid-19 PCR (CVDTB)on 10-10 SARS-CoV-2 (COVID-19) RNA OH+probe Ql (Unsp spec) Detected Critically abnormal NOT DETECTED [facility] Comment on above: Result Comment: This test is not yet approved or cleared by the [place] FDA. When there are no FDA-approved or cleared tests available, and other criteria are met, FDA can make tests available under an emergency access mechanism called an Emergency Use Authorization (EUA). The EUA for this test is supported by the [place] of Health and Human Service's declaration that [...] used). Performed By: #### C BC #### [facility] [address] [address] [address] Anthony Bonilla ER URINE PROFILEon 2 Bilirubin Ql (U) Negative Normal NEGATIVE [facility] Comment on above: Performed By: #### U RCX #### [facility] [address] [place] [address] Dr. Anthony Bonilla Clarity (U) CLEAR Normal CLEAR [facility] Comment on above: Performed By: #### U RCX #### [facility] [address] [place] [address] Dr. Anthony Bonilla Color (U) LT. YELLOW Normal YELLOW [facility] Comment on above: Performed By: #### U RCX #### [facility] [address] [place] [address] Dr. Anthony Bonilla ERUAHD A micrscopic examina tion will be performed if indicated. Normal [facility] Comment on above: Performed By: #### U RCX #### [facility] [address] [place] [address] Dr. Anthony Bonilla Glucose Ql (U) Negative Normal NEGATIVE [facility] Comment on above: Performed By: #### U RCX #### [facility] [address] [place] [address] Dr. Anthony Bonilla Hemoglobin Ql (U) TRACE-INTACT Abnormal NEGATIVE [facility] Comment on above: Performed By: #### U RCX #### [facility] [address] [place] [address] Dr. Anthony Bonilla Ketones Ql (U) Negative Normal NEGATIVE [facility] Comment on above: Performed By: #### U RCX #### [facility] [address] [place] [address] Dr. Anthony Bonilla LEUKOCYTES Negative Normal NEGATIVE [facility] Comment on above: Performed By: #### U RCX #### [facility] [address] [place] [address] Dr. Anthony Bonilla Nitrite Ql (U) Negative Normal NEGATIVE [facility] Comment on above: Performed By: #### U RCX #### [facility] [address] [place] [address] Dr. Anthony Bonilla pH (U) 6.0 [pH] Normal 5-9 [facility] Comment on above: Performed By: #### U RCX #### [facility] [address] [place] [address] Dr. Anthony Bonilla SPEC GRAVITY 1.020 Normal 1.005-<=1. 025 [facility] Comment on above: Performed By: #### U RCX #### [facility] [address] [place] [address] Dr. Anthony Bonilla UA PROTEIN Negative Normal NEGATIVE/ TRACE [facility] Comment on above: Performed By: #### U RCX #### [facility] [address] [place] [address] Dr. Anthony Bonilla UR MICRO IND INDICATED Normal [facility] Comment on above: Performed By: #### U RCX #### [facility] [address] [place] [address] Dr. Anthony Bonilla Urobilinogen Qn (U) 1.0 {Gen'U}/dL Normal 0.2 - 1. 0 [facility] Comment on above: Performed By: #### U RCX #### [facility] [address] [place] [address] Dr. Anthony Bonilla LACTATE/LACTIC ACIDon 2021 Lactate [Moles/Vol] 1.6 mmol/L Normal 0.4-1.9 [facility] Comment on above: Performed By: #### C BC #### [facility] [address] [place] [address] Dr. Anthony Bonilla PROF 14(COMP METB)on 022 Albumin [Mass/Vol] 3.2 g/dL Critically low 3.4-5.0 [facility] Comment on above: Performed By: #### C BC #### [facility] [address] [place] [address] Dr. Anthony Bonilla Albumin/Globulin [Mass ratio] 0.9 {ratio} Normal [facility] Comment on above: Performed By: #### C BC #### [facility] [address] [address] [address] Anthony Bonilla ALP [Catalytic activity/Vol] 26 U/L Critically low 46-116 [facility] Comment on above: Performed By: #### C BC #### [facility] [address] [address] [address] Anthony Bonilla ALT [Catalytic activity/Vol] 32 U/L Normal 14-59 [facility] Comment on above: Performed By: #### C BC #### [facility] [address] [address] [address] Anthony Bonilla Anion gap [Moles/Vol] 11.5 mmol/L Normal Th [facility] Comment on above: Performed By: #### C BC #### [facility] [address] [place] [address] Dr. Anthony Bonilla AST [Catalytic activity/Vol] 16 U/L Normal 15-37 [facility] Comment on above: Performed By: #### C BC #### [facility] [address] [address] [address] Anthony Bonilla Bilirubin [Mass/Vol] 1.2 mg/dL Critically high 0.2-1.0 [facility] Comment on above: Performed By: #### C BC #### [facility] [address] [place] [address] Dr. Anthony Bonilla Calcium [Mass/Vol] 9.0 mg/dL Normal 8.5-10.1 [facility] Comment on above: Performed By: #### C BC #### [facility] [address] [address] [address] Anthony Bonilla Chloride [Moles/Vol] 102 mmol/L Normal 98-107 [facility] Comment on above: Performed By: #### C BC #### [facility] [address] [address] [address] Anthony Bonilla CO2 [Moles/Vol] 25.2 mmol/L Normal 21.0-32.0 [facility] Comment on above: Performed By: #### C BC #### [facility] [address] [address] [address] Anthony Bonilla Creatinine [Mass/Vol] 1.25 mg/dL Critically high 0.55-1.02 [facility] Comment on above: Performed By: #### C BC #### [facility] [address] [address] [address] Anthony Bonilla EGFR-AF [place] 49 mL/min/1.73m2 Critically low >=60 [facility] Comment on above: Performed By: #### C BC #### [facility] [address] [address] [address] Anthony Bonilla EGFR-NON AF [place] 41 mL/min/1.73m2 Critically low >=60 [facility] Comment on above: Performed By: #### C BC #### [facility] [address] [address] [address] Anthony Bonilla Globulin (S) [Mass/Vol] 3.4 g/dL Normal [facility] Comment on above: Performed By: #### C BC #### [facility] [address] [address] [address] Anthony Bonilla Glucose [Mass/Vol] 102 mg/dL Normal 74-106 [facility] Comment on above: Performed By: #### C BC #### [facility] [address] [address] [address] Anthony Bonilla Potassium [Moles/Vol] 4.7 mmol/L Normal 3.5-5.1 [facility] Comment on above: Performed By: #### C BC #### [facility] [address] [address] [address] Anthony Bonilla Protein [Mass/Vol] 6.6 g/dL Normal 6.4-8.2 [facility] Comment on above: Performed By: #### C BC #### [facility] [address] [address] [address] Anthony Bonilla Sodium [Moles/Vol] 134 mmol/L Critically low 136-145 Th [facility] Comment on above: Performed By: #### C BC #### [facility] [address] [place] [address] Dr. Anthony Bonilla Urea nitrogen [Mass/Vol] 33.0 mg/dL Critically high 7.0-18.0 [facility] Comment on above: Performed By: #### C BC #### [facility] [address] [place] [address] Dr. Anthony Bonilla Urea nitrogen/Creatinine [Mass ratio] 26.4 mg/mg Normal [facility] Comment on above: Performed By: #### C BC #### [facility] [address] [place] [address] Dr. Anthony Bonilla PROTIMEon 11-01-2021 INR Coag (PPP) [Relative time] 0.97 {INR} Normal [facility] Comment on above: Performed By: #### U RCX #### [facility] [address] [place] [address] Dr. Anthony Bonilla INR GUIDELINES SEE BELOW Normal [facility] Comment on above: Result Comment: MEGAN RED INR: 2.0 - 3.0 CONDITIONS NOT LISTED BELOW 2.5 - 3.5 FOR PROSTHETIC HEART VALVE REPLACEMENT 2.5 - 3.5 RECURRENT THROMBOSIS Performed By: #### U RCX #### [facility] [address] [place] [address] Dr. Anthony Bonilla PT Coag (PPP) [Time] 10.5 s Normal 9.0-11.6 [facility] Comment on above: Performed By: #### U RCX #### [facility] [address] [place] [address] Dr. Anthony Bonilla PTTon 11-01-2021 aPTT Coag (Bld) [Time] 27.8 s Normal 22.3-36.2 Th [facility] Comment on above: Performed By: #### U RCX #### [facility] [address] [place] [address] Dr. Anthony Bonilla TSHon 11-01-2021 TSH 1.011 uIU/mL Normal 0.358-3.74 0 [facility] Comment on above: Performed By: #### C BC #### [facility] [address] [place] [address] Dr. Anthony Bonilla URINE MICROSCOPIC ONLYon BACTERIA LARGE Abnormal NONE SEEN [facility] Comment on above: Performed By: #### U RCX #### [facility] [address] [place] [address] Dr. Anthony Bonilla Bacteria identified Cx Nom (U) INDICATED Normal [facility] Comment on above: Performed By: #### U RCX #### [facility] [address] [place] [address] Dr. Anthony Bonilla CAST NONE SEEN Normal NONE SEEN [facility] Comment on above: Performed By: #### U RCX #### [facility] [address] [place] [address] Dr. Anthony Bonilla Crystals LM Nom (Urine sed) NONE SEEN Normal NONE SEEN [facility] Comment on above: Performed By: #### U RCX #### [facility] [address] [place] [address] Dr. Anthony Bonilla Epithelial cells LM Ql (Urine sed) FEW Abnormal NONE SEEN /RARE [facility] Comment on above: Performed By: #### U RCX #### [facility] [address] [place] [address] Dr. Anthony Bonilla MUCOUS NONE SEEN Normal NONE SEEN [facility] Comment on above: Performed By: #### U RCX #### [facility] [address] [place] [address] Dr. Anthony Bonilla RBC 2-5 Abnormal 0-2 [facility] Comment on above: Performed By: #### U RCX #### [facility] [address] [place] [address] Dr. Anthony Bonilla WBC 0-2 Abnormal NONE SEEN [facility] Comment on above: Performed By: #### U RCX #### [facility] [address] [place] [address] Dr. Anthony Bonilla Covid-19 PCR ([facility])on SARS-CoV-2 (COVID-19) RNA OH+probe Ql (Unsp spec) Detected Critically abnormal NOT DETECTED [facility] Comment on above: Result Comment: This test is not yet approved or cleared by the [place] FDA. When there are no FDA-approved or cleared tests available, and other criteria are met, FDA can make tests available under an emergency access mechanism called an Emergency Use Authorization (EUA). The EUA for this test is supported by the [place] of Health and Human Service's declaration that [...] used). Performed By: #### C BC #### [facility] [address] [place] [address] Dr. Anthony Bonilla Covid-19 PCR ([facility])on SARS-CoV-2 (COVID-19) RNA OH+probe Ql (Unsp spec) Not detected Normal NOT DETECTED [facility] Comment on above: Result Comment: This test is not yet approved or cleared by the [place] FDA. When there are no FDA-approved or cleared tests available, and other criteria are met, FDA can make tests available under an emergency access mechanism called an Emergency Use Authorization (EUA). The EUA for this test is supported by the [place] of Health and Human Service's (HHS's) declaration [...] SARS-CoV-2. Performed By: #### U RCX #### [facility] [address] [place] [address] [id number] [address] 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 Any time this information is not complete, it is the fan mail clerk?s responsibility to query the physician. Based on [...] timely attention to this matter. Ambar Manley Agricultural Technical Officer Ext [phone] [Electronically Signed on: 10/18/2019 21:40 EDT] Mi Licea DO [Verified on: 10/18/2019 21:40 EDT] Mi Licea DO [Transcribed on: 10/02/2019 11:06 EDT] [facility] Consent Formson 09-29-2019 Consent Forms [id number]#[facility] Med[facility] Managementon 09-09 Medication Management [id number]#[facility] Outside Recordson 09-29-2019 Outside Records [id number]#[facility] Outside Records [id number]#1.[facility] Provider Orderson 09-29-2019 Provider Orders [id number]#1.00[facility] Telemetry Stripson 0 Telemetry Strips [id number]#1.00[facility] .Auto Diff 1on 2019 Auto [place] % 11 % Normal 02-19 [facility] Comment on above: Performed By: #### 1 [id number] #### [facility] (DEFAULT) [address] [place] [address] Baso Abs# 0.0 x10 Normal 0.0-0.2 [facility] Comment on above: Performed By: #### 1 [id number] #### [facility] (DEFAULT) [address] [place] [address] Basophils/100 WBC (Bld) 0.1 % Low 0.2-2.0 [facility] Comment on above: Performed By: #### 1 [id number] #### [facility] (DEFAULT) [address] [place] [address] Eos Abs# 0.2 x10 Normal 0.0-0.4 [facility] Comment on above: Performed By: #### 1 [id number] #### [facility] (DEFAULT) [address] [place] [address] Eosinophils/100 WBC (Bld) 2.2 % Normal 0.9-4.0 [facility] Comment on above: Performed By: #### 1 [id number], [id number], [id number] #### [facility] (DEFAULT) [address] [place] [address] [address] Lymphocytes (Bld) [#/Vol] 0.6 x10 Low 1.3-2.9 [facility] Comment on above: Performed By: #### 1 [id number], [id number], [id number] #### [facility] (DEFAULT) [address] [place] [address] 35566 Lymphocytes/100 WBC (Bld) 6 % Low 14-48 [facility] Comment on above: Performed By: #### 1 [id number], [id number], [id number] #### [facility] (DEFAULT) [address] [place] [address] 19004 Hardee Abs# 1.0 x10 High 0.0-0.8 [facility] Comment on above: Performed By: #### 1 [id number], [id number], [id number] #### [facility] (DEFAULT) [address] [place] [address] 69053 Neut Abs# 7.2 x10 Normal 1.5-9.2 [facility] Comment on above: Performed By: #### 1 [id number], [id number], [id number] #### [facility] (DEFAULT) [address] [place] [address] Neutrophils/100 WBC (Bld) 80 % Normal 44-88 [facility] Comment on above: Performed By: #### 1 [id number], [id number], 2680639 #### [facility] (DEFAULT) [address] [place] [address] CBC w/ Auto Diffon 0 Erythrocyte distribution width (RBC) [Ratio] 14.4 % Normal 11.5-15.0 [facility] Comment on above: Performed By: #### 1 [id number], [id number], 0112497 #### [facility] (DEFAULT) [address] [place] [address] Hematocrit (Bld) [Volume fraction] 36.2 % Normal 33.7-40.4 [facility] Comment on above: Performed By: #### 1 [id number], [id number], 3760608 #### [facility] (DEFAULT) [address] [place] [address] Hemoglobin (Bld) [Mass/Vol] 11.9 g/dL Normal 11.3-15.9 [facility] Comment on above: Performed By: #### 1 [id number], 69338643, 1462655 #### [facility] (DEFAULT) [address] [place] [address] Man Diff? Auto Normal [facility] Comment on above: Performed By: #### 1 [id number], [id number], [id number] #### [facility] (DEFAULT) [address] [place] [address] MCH (RBC) [Entitic mass] 33 pg Normal 24-34 [facility] Comment on above: Performed By: #### 1 [id number], [id number], 4982747 #### [facility] (DEFAULT) [address] [place] [address] MCHC (RBC) [Mass/Vol] 33 g/dL Normal 26-37 [facility] Comment on above: Performed By: #### 1 [id number], 63600769, 4410087 #### [facility] (DEFAULT) [address] [place] [address] 75651 MCV (RBC) [Entitic vol] 100 fL Normal 81-100 [facility] Comment on above: Performed By: #### 1 [id number], 96535534, 7468807 #### [facility] (DEFAULT) [address] [place] [address] 32262 Platelet mean volume (Bld) [Entitic vol] 9.6 fL Normal 6.3-10.2 [facility] Comment on above: Performed By: #### 1 [id number], [id number], 0613548 #### [facility] (DEFAULT) [address] [place] [address] 91855 Platelets (Bld) [#/Vol] 286 x10 Normal 138-427 [facility] Comment on above: Performed By: #### 1 [id number], 76383618, 4260647 #### [facility] (DEFAULT) [address] [place] [address] 07121 RBC (Bld) [#/Vol] 3.61 x10 Low 3.70-5.30 [facility] Comment on above: Performed By: #### 1 [id number], 57267972, 8829374 #### [facility] (DEFAULT) [address] [place] [address] 89062 WBC (Bld) [#/Vol] 9.0 x10 [facility] Comment on above: Performed By: #### 1 [id number], [id number], 4561616 #### [facility] (DEFAULT) [address] [place] [address] Education Noteon 2019 Education Note Education Materials [...] DVT. Normal [facility] Extra [facility] 2019 Tube Collected Yes [facility] Comment on above: Performed By: #### 1 [id number], [id number], [id number] #### [facility] (DEFAULT) [address] [place] [address] Inpatient Patient Summaryon 2019 Inpatient Patient Summary [facility] [address] [place] [address] Patient Discharge Instructions Name: VINCENT HSU : 1935 Patient Address: [address] [place] [address] Primary Care Provider: Name: Gypsy Mcmahon MD After you are discharged if you find you have any questions, please, call [phone] ext [phone] to speak to a nurse. Discharge Diagnosis: Primary localized osteoarthritis of left hip Prescription Information: If you have been given a prescription for narcotics, seek immediate medical attention if you have any difficulty breathing or any sudden status changes such as confusion and sleepiness. If you or anyone you know is experiencing suicidal thoughts, mental health, alcohol and/or drug addiction problems; contact the [facility] 31/08 Crisis Hotline -text 4hope to [phone]. [...] Follow-up Instructions With: Address: When: Mi Licea [address] [place] [address] [address] [place] [address] Business (2) 10/03/2019 8:30 AM With: Address: When: Gypsy Mcmahon [address] [place] [address] Business (1) Medications During the course of [...] for Disease Control and Prevention October 2013 [facility] Progress Note - Nurseon 09-09 [...] on: 2019 11:52 EDT] Pan Regalado RN [facility] Progress Note - Nurse Pt. reports interm ittent left upper inner thigh grabbing pain. Pt. moans during these episodes. Tramadol given. Pt. repostioned for comfort. No change in the muscle spasms. Dr. Chacko informed in person. No orders received. [Electronically Signed on: 2019 09:32 EDT] aPn Regalado RN [Verified on: 2019 09:32 EDT] Pan Regalado RN [facility] Progress Note-Physicianon Progress Note-Physician DATE [...] PROGNOSIS: Good. Devorah Redd DO JOB #: [id number] [Electronically Signed on: 2019 13:04 EDT] DEVORAH REDD DO [Verified on: 2019 13:04 EDT] KRESGE, DEVORAH DO [Transcribed on: 2019 11:05 EDT] GDU Normal [facility] .Auto Diff 109-27-2019 Auto Hardee % 9 % Normal 1-12 [facility] Comment on above: Performed By: #### 1 [id number], [id number], 5268762 #### [facility] (DEFAULT) [address] [place] [address] Baso Abs# 0.0 x10 Normal 0.0-0.2 [facility] Comment on above: Performed By: #### 1 [id number], [id number], 4474733 #### [facility] (DEFAULT) [address] [place] [address] Basophils/100 WBC (Bld) 0.1 % Low 0.2-2.0 [facility] Comment on above: Performed By: #### 1 [id number], 77816657, 5361141 #### [facility] (DEFAULT) [address] [place] [address] Eos Abs# 0.2 x10 Normal 0.0-0.4 [facility] Comment on above: Performed By: #### 1 [id number], [id number], 0136287 #### [facility] (DEFAULT) [address] [place] [address] Eosinophils/100 WBC (Bld) 1.6 % Normal 0.9-4.0 [facility] Comment on above: Performed By: #### 1 [id number], 18294296, 2288206 #### [facility] (DEFAULT) [address] [place] [address] 55864 Lymphocytes (Bld) [#/Vol] 0.5 x10 Low 1.3-2.9 [facility] Comment on above: Performed By: #### 1 [id number], 73586620, 8249150 #### [facility] (DEFAULT) [address] [place] [address] 64546 Lymphocytes/100 WBC (Bld) 4 % Low 14-48 [facility] Comment on above: Performed By: #### 1 [id number], 04003332, 2387595 #### [facility] (DEFAULT) [address] [place] [address] 16927 Hardee Abs# 1.2 x10 High 0.0-0.8 [facility] Comment on above: Performed By: #### 1 [id number], [id number], 6760800 #### [facility] (DEFAULT) [address] [place] [address] 73090 Neut Abs# 11.5 x10 High 1.5-9.2 [facility] Comment on above: Performed By: #### 1 [id number], 41133332, 4754147 #### [facility] (DEFAULT) [address] [place] [address] Neutrophils/100 WBC (Bld) 86 % Normal 44-88 [facility] Comment on above: Performed By: #### 1 [id number], 75543937, 5483711 #### [facility] (DEFAULT) [address] [place] [address] C Urineon 09-27-2019 C Urine Urine Culture [...] Comment on above: Performed By: #### 7 [id number], [id number], [id number] #### [facility] (DEFAULT) [address] [place] [address] 80663 CBC w/ Auto Diffon 0 Erythrocyte distribution width (RBC) [Ratio] 14.5 % Normal 11.5-15.0 [facility] Comment on above: Performed By: #### 1 [id number], 97206188, 6631417 #### [facility] (DEFAULT) [address] [place] [address] Hematocrit (Bld) [Volume fraction] 39.2 % Normal 33.7-40.4 [facility] Comment on above: Performed By: #### 1 [id number], 63711935, 9665590 #### [facility] (DEFAULT) [address] [place] [address] Hemoglobin (Bld) [Mass/Vol] 12.8 g/dL Normal 11.3-15.9 [facility] Comment on above: Performed By: #### 1 [id number], 19382934, 4678567 #### [facility] (DEFAULT) [address] [place] [address] Man Diff? Auto Normal [facility] Comment on above: Performed By: #### 1 [id number], 49563733, 4386320 #### [facility] (DEFAULT) [address] [place] [address] 06286 MCH (RBC) [Entitic mass] 33 pg Normal 24-34 [facility] Comment on above: Performed By: #### 1 [id number], 32239554, 1381512 #### [facility] (DEFAULT) [address] [place] [address] 21189 MCHC (RBC) [Mass/Vol] 33 g/dL Normal 26-37 [facility] Comment on above: Performed By: #### 1 [id number], 79447384, 0883954 #### [facility] (DEFAULT) [address] [place] [address] 87651 MCV (RBC) [Entitic vol] 101 fL High 81-100 [facility] Comment on above: Performed By: #### 1 [id number], 15686837, 8354518 #### [facility] (DEFAULT) [address] [place] [address] 67974 Platelet mean volume (Bld) [Entitic vol] 9.8 fL Normal 6.3-10.2 [facility] Comment on above: Performed By: #### 1 [id number], 85922538, 9270788 #### [facility] (DEFAULT) [address] [place] [address] 20641 Platelets (Bld) [#/Vol] 266 x10 Normal 138-427 [facility] Comment on above: Performed By: #### 1 [id number], 16513167, 4670256 #### [facility] (DEFAULT) [address] [place] [address] 07888 RBC (Bld) [#/Vol] 3.89 x10 Normal 3.70-5.30 [facility] Comment on above: Performed By: #### 1 [id number], 44224380, 6584323 #### [facility] (DEFAULT) [address] [place] [address] 24173 WBC (Bld) [#/Vol] 13.4 x10 [facility] Comment on above: Result Comment: Slid e Reviewed Performed By: #### 1 [id number], [id number], 8548829 #### [facility] (DEFAULT) [address] [place] [address] 58318 Coding Summaryon 09-27-2019 Coding Summary CODING DATE: 020 [facility] STATUS: Home PAYOR: Medicare ADMIT DX: [...] Lawrence Date Saved: 09/27/2019 11:11 am Normal [facility] Extra Greenon 09-27-2019 Tube Collected Yes [facility] Comment on above: Performed By: #### 1 [id number], 99231855, 5862398 #### [facility] (DEFAULT) [address] [place] [address] Nutrition Noteon 09-27-2019 Nutrition Note Pt eating poorly, av g less than 30% of meals per intake records. Supplements also taken sporadically. Suspect pain and constipation may be playing a role. No new wts. Last BM 09/23. Possible discharge later today. Will continue to follow and monitor need to adjust supplements ie. offer to make into a milkshake, [facility] Pharmacy Noteon 09-27-2019 Pharmacy Note [...] [Verified on: 09/27/2019 14:01 EDT] Virgie Santos [facility] Progress Note - Nurseon 09-08 Progress Note - Nurse 1800 one dulcolax suppository administered, will continue to monitor. [Electronically Signed on: 09/27/2019 18:03 EDT] Luli Mclain RN [Verified on: 09/27/2019 18:03 EDT] Luli Mclain RN [facility] Progress Note - Nurse 1710 tramadol 50mg po administered for #10 left upper thigh pain , will continue to monitor. [Electronically Signed on: 09/27/2019 17:09 EDT] Luli Mclain RN [Verified on: 09/27/2019 17:09 EDT] Luli Mclain RN [facility] Progress Note-Physicianon Progress Note-Physician DATE [...] PROGNOSIS: Good. Devorah Redd DO JOB #: [id number] [Electronically Signed on: 2019 10:28 EDT] DEVORAH REDD DO [Verified on: 2019 10:28 EDT] DEVORAH REDD DO [Transcribed on: 09/27/2019 13:52 EDT] GDU Normal [facility] .Auto Diff 1on 09-26-2019 Auto Hardee % 9 % Normal 1-12 [facility] Comment on above: Performed By: #### 1 [id number], [id number], 8037227 #### [facility] (DEFAULT) [address] [place] [address] Baso Abs# 0.0 x10 Normal 0.0-0.2 [facility] Comment on above: Performed By: #### 1 [id number], 75608664, 1583021 #### [facility] (DEFAULT) [address] [place] [address] Basophils/100 WBC (Bld) 0.1 % Low 0.2-2.0 [facility] Comment on above: Performed By: #### 1 [id number], 66316951, 8649707 #### [facility] (DEFAULT) [address] [place] [address] Eos Abs# 0.2 x10 Normal 0.0-0.4 [facility] Comment on above: Performed By: #### 1 [id number], 27453574, 6330075 #### [facility] (DEFAULT) [address] [place] [address] Eosinophils/100 WBC (Bld) 2.0 % Normal 0.9-4.0 [facility] Comment on above: Performed By: #### 1 [id number], 06341287, 6244616 #### [facility] (DEFAULT) [address] [place] [address] Lymphocytes (Bld) [#/Vol] 0.6 x10 Low 1.3-2.9 [facility] Comment on above: Performed By: #### 1 [id number], 47408082, 5871700 #### [facility] (DEFAULT) [address] [place] [address] Lymphocytes/100 WBC (Bld) 6 % Low 14-48 [facility] Comment on above: Performed By: #### 1 [id number], 52742090, 6877747 #### [facility] (DEFAULT) [address] [place] [address] Hardee Abs# 0.9 x10 High 0.0-0.8 [facility] Comment on above: Performed By: #### 1 [id number], 16834904, 1625621 #### [facility] (DEFAULT) [address] [place] [address] Neut Abs# 8.3 x10 Normal 1.5-9.2 [facility] Comment on above: Performed By: #### 1 [id number], 41657112, 8932334 #### [facility] (DEFAULT) [address] [place] [address] Neutrophils/100 WBC (Bld) 83 % Normal 44-88 [facility] Comment on above: Performed By: #### 1 [id number], 78896474, 8603681 #### [facility] (DEFAULT) [address] [place] [address] BMP Standardon 09-26-2019 eGFR Non AA 48 mL/min/1.73m2 [facility] Comment on above: Performed By: #### 1 [id number], 66105761, 5998465 #### [facility] (DEFAULT) [address] [place] [address] 70655 eGFR AA 58 mL/min/1.73m2 [facility] Comment on above: Result Comment: [employer] kody Kidney disease could be indicated at eGFRs of less than 60 ml/min/1.73m2. Kidney Failure is indicated at less than 15 ml/min/1.73m2 Performed By: #### 1 [id number], 60985959, 9327476 #### [facility] (DEFAULT) [address] [place] [address] 65862 Anion gap [Moles/Vol] 10.0 mmol/L Normal 5.0-19.0 [facility] Comment on above: Performed By: #### 1 [id number], 36874014, 6616918 #### [facility] (DEFAULT) [address] [place] [address] 90338 Calcium [Mass/Vol] 8.8 mg/dL Low 8.9-10.[address] [facility] Comment on above: Performed By: #### 1 [id number], 88606296, 0543241 #### [facility] (DEFAULT) [address] [place] [address] 45438 Chloride [Moles/Vol] 103 mmol/L Normal 101-111 [facility] Comment on above: Performed By: #### 1 [id number], 94332312, 2023880 #### [facility] (DEFAULT) [address] [place] [address] 43648 CO2 [Moles/Vol] 28 mmol/L Normal 21-32 [facility] Comment on above: Performed By: #### 1 [id number], 75110894, 8751894 #### [facility] (DEFAULT) [address] [place] [address] 44891 Creatinine [Mass/Vol] 1.09 mg/dL Normal 0.60-1.30 [facility] Comment on above: Performed By: #### 1 [id number], 70432033, 4367947 #### [facility] (DEFAULT) [address] [place] [address] 81529 Glucose [Mass/Vol] 94.0 mg/dL Normal 74.0-118.[address] [facility] Comment on above: Performed By: #### 1 [id number], 36593674, 9610558 #### [facility] (DEFAULT) [address] [place] [address] 80001 Osmolality [Osmolality] 276 mOsm/L [facility] Comment on above: Performed By: #### 1 [id number], 87491557, 7633636 #### [facility] (DEFAULT) [address] [place] [address] 75480 Potassium [Moles/Vol] 4.4 mmol/L Normal 3.6-5.1 [facility] Comment on above: Performed By: #### 1 [id number], 52434214, 6207389 #### [facility] (DEFAULT) [address] [place] [address] Sodium [Moles/Vol] 137.0 mmol/L Normal 136.0-144 . 0 [facility] Comment on above: Performed By: #### 1 [id number], 77773230, 7088262 #### [facility] (DEFAULT) [address] [place] [address] Urea nitrogen [Mass/Vol] 19 mg/dL Normal 8-26 [facility] Comment on above: Performed By: #### 1 [id number], 08142892, 1664732 #### [facility] (DEFAULT) [address] [place] [address] Urea nitrogen/Creatinine [Mass ratio] 17.0 mg/mg High 4.6-16.2 [facility] Comment on above: Performed By: #### 1 [id number], 90829642, 7058516 #### [facility] (DEFAULT) [address] [place] [address] 04272 CBC w/ Auto Diffon 0 Erythrocyte distribution width (RBC) [Ratio] 14.4 % Normal 11.5-15.0 [facility] Comment on above: Performed By: #### 1 [id number], 90406092, 0815517 #### [facility] (DEFAULT) [address] [place] [address] Hematocrit (Bld) [Volume fraction] 35.5 % Normal 33.7-40.4 [facility] Comment on above: Performed By: #### 1 [id number], 55253724, 2234923 #### [facility] (DEFAULT) [address] [place] [address] 79650 Hemoglobin (Bld) [Mass/Vol] 11.6 g/dL Normal 11.3-15.9 [facility] Comment on above: Performed By: #### 1 [id number], 09970504, 8265934 #### [facility] (DEFAULT) [address] [place] [address] 31986 Man Diff? Auto Normal [facility] Comment on above: Performed By: #### 1 [id number], 80999929, 8851599 #### [facility] (DEFAULT) [address] [place] [address] 41304 MCH (RBC) [Entitic mass] 33 pg Normal 24-34 [facility] Comment on above: Performed By: #### 1 [id number], 83143143, 1607309 #### [facility] (DEFAULT) [address] [place] [address] 74135 MCHC (RBC) [Mass/Vol] 33 g/dL Normal 26-37 [facility] Comment on above: Performed By: #### 1 [id number], 76674273, 1755619 #### [facility] (DEFAULT) [address] [place] [address] 89151 MCV (RBC) [Entitic vol] 102 fL High 81-100 [facility] Comment on above: Performed By: #### 1 [id number], 63045035, 2948309 #### [facility] (DEFAULT) [address] [place] [address] 87880 Platelet mean volume (Bld) [Entitic vol] 9.8 fL Normal 6.3-10.2 [facility] Comment on above: Performed By: #### 1 [id number], 80939808, 0909855 #### [facility] (DEFAULT) [address] [place] [address] 02784 Platelets (Bld) [#/Vol] 236 x10 Normal 138-427 [facility] Comment on above: Performed By: #### 1 [id number], 41552594, 1416363 #### [facility] (DEFAULT) [address] [place] [address] RBC (Bld) [#/Vol] 3.49 x10 Low 3.70-5.30 [facility] Comment on above: Performed By: #### 1 [id number], 68867937, 3901137 #### [facility] (DEFAULT) [address] [place] [address] WBC (Bld) [#/Vol] 10.0 x10 [facility] Comment on above: Performed By: #### 1 [id number], 71247083, 3878415 #### [facility] (DEFAULT) [address] [place] [address] 16809 Consent Formson 09-26-2019 Consent Forms [id number] FF Normal [facility] Consultation/Specialist Note on 09-26-2019 Consultation/Specialis t [...] [Verified on: 09/26/2019 07:35 EDT] SUDHEER PIKE [facility] Progress Note - Nurseon 09-08 [...] 09/26/2019 07:45 EDT] Nancy CHAIDEZ, Twila Normal [facility] .Auto Diff 09-25-2019 Auto Hardee % 8 % Normal 1-12 [facility] Comment on above: Performed By: #### 1 [id number], 77392449, 0200715 #### [facility] (DEFAULT) [address] [place] [address] 58938 Baso Abs# 0.0 x10 Normal 0.0-0.2 [facility] Comment on above: Performed By: #### 1 [id number], 33049574, 3290425 #### [facility] (DEFAULT) [address] [place] [address] 81669 Basophils/100 WBC (Bld) 0.2 % Normal 0.2-2.0 [facility] Comment on above: Performed By: #### 1 [id number], 77059329, 9049242 #### [facility] (DEFAULT) [address] [place] [address] 47823 Eos Abs# 0.1 x10 Normal 0.0-0.4 [facility] Comment on above: Performed By: #### 1 [id number], 57741149, 7852660 #### [facility] (DEFAULT) [address] [place] [address] 64385 Eosinophils/100 WBC (Bld) 0.5 % Low 0.9-4.0 [facility] Comment on above: Performed By: #### 1 [id number], 44238238, 8610477 #### [facility] (DEFAULT) [address] [place] [address] 83413 Lymphocytes (Bld) [#/Vol] 1.1 x10 Low 1.3-2.9 [facility] Comment on above: Performed By: #### 1 [id number], 70289797, 0097130 #### [facility] (DEFAULT) [address] [place] [address] 44014 Lymphocytes/100 WBC (Bld) 9 % Low 14-48 [facility] Comment on above: Performed By: #### 1 [id number], 63918383, 2587313 #### [facility] (DEFAULT) [address] [place] [address] Hardee Abs# 1.0 x10 High 0.0-0.8 [facility] Comment on above: Performed By: #### 1 [id number], 95657667, 1830215 #### [facility] (DEFAULT) [address] [place] [address] Neut Abs# 9.6 x10 High 1.5-9.2 [facility] Comment on above: Performed By: #### 1 [id number], 55829457, 6802109 #### [facility] (DEFAULT) [address] [place] [address] Neutrophils/100 WBC (Bld) 82 % Normal 44-88 [facility] Comment on above: Performed By: #### 1 [id number], [id number], [id number] #### [facility] (DEFAULT) [address] [place] [address] ABORhon 09-25-2019 ABO and Rh group Nom (Bld) Hx Check: Not Found Anti-A: 4+ Anti-B: 0 Anti-D: 4+ DCon: NT A1: 0 B: 4+ ABORh Interp: A POS [facility] Comment on above: Performed By: #### 7 [id number], [id number], [id number] #### [facility] (DEFAULT) [address] [place] [address] ABORh Retypeon 09-25-2019 ABO and Rh group Nom (Bld) Ordered by Discern. Anti-A: 4+ Anti-B: 0 Anti-D: 4+ DCon: NT A1: 0 B: 4+ ABORh Retype: A POS [facility] Comment on above: Performed By: #### 7 [id number], [id number], [id number] #### [facility] (DEFAULT) [address] [place] [address] ABSC Gelon 09-25-2019 ABSC Gel Negative Normal [facility] Comment on above: Performed By: #### 7 [id number], [id number], [id number] #### [facility] (DEFAULT) [address] [place] [address] Anesthesia Noteon 09-25-2019 Anesthesia Note Patient: DONTAE [...] risk of pressure sore / SNOMED CT 968733887 / Confirmed CAD (coronary artery disease) / SNOMED CT 31774362 / Confirmed Hyperlipidemia / SNOMED CT 73127548 / Confirmed Hypertension / SNOMED CT 2594973331 / Confirmed Skin cancer / SNOMED CT 8613518510 / Confirmed Osteoporosis / SNOMED CT 849556091 / Confirmed Restless leg syndrome / SNOMED CT 50713159 / Confirmed Resolved: GERD (gastroesophageal reflux disease) / SNOMED CT 740708718 Histories Family History: Cancer Sister Brother Aneurysm Mother CHF - Congestive heart failure Father ND (myocardial infarction) Sister Procedure history: Umbilical hernia (2599998356). Arthroscopy (01715043). Comments: 08/29/2019 12:57 Dionne Mccarty RN arthroscopy of knee Cholecystectomy (30266403). Hysterectomy (288612646). Cataract (218903218). Shoulder (09077973). Comments: 08/29/2019 12:58 Dionne Mccarty RN arthroscopy CABG (Coronary artery bypass grafting) planned (249294061). Colonoscopy (857668227). EGD - Esophagogastroduodenoscop y (9535131619). Meniscectomy (155259726). Hip arthroplasty (842050693). Social History Electronic Cigarette/Vaping Assessment Electronic Cigarette [...] axis dev, LAFB, RV conduction delay. Plan [place] [employer] Anesthesiologists#(ASA) physical status classification: Class [...] Bank IDon 09-25-2019 Blood Bank ID BBID: [id number] [facility] Comment on above: Performed By: #### 7 [id number], [id number], [id number] #### [facility] (DEFAULT) [address] [place] [address] 93595 CBC w/ Auto Diffon 0 Erythrocyte distribution width (RBC) [Ratio] 14.4 % Normal 11.5-15.0 [facility] Comment on above: Performed By: #### 1 [id number], [id number], [id number] #### [facility] (DEFAULT) [address] [place] [address] 11199 Hematocrit (Bld) [Volume fraction] 39.2 % Normal 33.7-40.4 [facility] Comment on above: Performed By: #### 1 [id number], [id number], [id number] #### [facility] (DEFAULT) [address] [place] [address] 26772 Hemoglobin (Bld) [Mass/Vol] 12.8 g/dL Normal 11.3-15.9 [facility] Comment on above: Performed By: #### 1 [id number], [id number], [id number] #### [facility] (DEFAULT) [address] [place] [address] 10703 Man Diff? Auto Normal [facility] Comment on above: Performed By: #### 1 [id number], [id number], [id number] #### [facility] (DEFAULT) [address] [place] [address] 37221 MCH (RBC) [Entitic mass] 33 pg Normal 24-34 [facility] Comment on above: Performed By: #### 1 [id number], [id number], [id number] #### [facility] (DEFAULT) [address] [place] [address] 71535 MCHC (RBC) [Mass/Vol] 33 g/dL Normal 26-37 [facility] Comment on above: Performed By: #### 1 [id number], 74093942, [id number] #### [facility] (DEFAULT) [address] [place] [address] 44664 MCV (RBC) [Entitic vol] 102 fL High 81-100 [facility] Comment on above: Performed By: #### 1 [id number], 75091163, [id number] #### [facility] (DEFAULT) [address] [place] [address] 25791 Platelet mean volume (Bld) [Entitic vol] 9.4 fL Normal 6.3-10.2 [facility] Comment on above: Performed By: #### 1 [id number], [id number], [id number] #### [facility] (DEFAULT) [address] [place] [address] 08645 Platelets (Bld) [#/Vol] 272 x10 Normal 138-427 [facility] Comment on above: Performed By: #### 1 [id number], [id number], [id number] #### [facility] (DEFAULT) [address] [place] [address] 41407 RBC (Bld) [#/Vol] 3.85 x10 Normal 3.70-5.30 [facility] Comment on above: Performed By: #### 1 [id number], [id number], [id number] #### [facility] (DEFAULT) [address] [place] [address] 34090 WBC (Bld) [#/Vol] 11.7 x10 High 3.5-10.5 [facility] Comment on above: Performed By: #### 1 [id number], [id number], [id number] #### [facility] (DEFAULT) [address] [place] [address] 68691 Extra [place] 09-25-2019 Tube Collected Yes [facility] Comment on above: Performed By: #### 7 955694, [id number], [id number] #### [facility] (DEFAULT) [address] [place] [address] 99608 H&Hon 09-25-2019 Hematocrit (Bld) [Volume fraction] 39.9 % Normal 33.7-40.4 [facility] Comment on above: Performed By: #### 7 254797, 71171661, [id number] #### [facility] (DEFAULT) [address] [place] [address] 94179 Hemoglobin (Bld) [Mass/Vol] 12.7 g/dL Normal 11.3-15.9 [facility] Comment on above: Performed By: #### 7 592286, 36441889, [id number] #### [facility] (DEFAULT) [address] [place] [address] History and Physicalon 09-24 History and Physical [id number] FF Normal [facility] MAGR Intraoperative Recordon 09-25-2019 MAGR Intraoperative Record MAGR Intra-Op Record Summary Primary Physician: Mi Licea DO Finalized Date/Time: 09/25/19 15:04:11 Pt. Name: VINCENT HSU D.O.B./Sex: 1935 FEMALE Med Rec #: [id number] Physician: Mi Licea DO Financial #: [id number] Pt. Type: I Room/Bed: [facility]/ Admit/Disch: 09/25/19 06:52:00 - Institution: [...] Role Performed Surgeon - Primary Anesthesiologist of Executive Business Coach Record Time In 09/25/19 09:37:00 09/25/19 09:37:00 09/25/19 09:37:00 Time Out 09/25/19 11:50:00 09/25/19 11:50:00 09/25/19 11:50:00 Procedure Arthroplasty Total Arthroplasty Total Arthroplasty Total Hip(Left) Hip(Left) Hip(Left) Last Modified By: Marj Sullivan RN, Stephanie RN Sauer, Stephanie RN 09/25/19 12:54:58 09/25/19 12:54:58 09/25/19 12:54:58 Entry 4 Entry 5 Entry 6 Case Attendee Montrell MCKEON, Shantal Moreira Leigh-Ann CST Role Performed Scrub Personnel Facility Engineer Facility Engineer Time In 09/25/19 09:37:00 09/25/19 09:37:00 [...] Primary Procedure Yes Primary Surgeon Mi Licea Zoey Clark DO Surgeon Comment LEFT TOTAL HIP Start [...] Mi Licea Outcome Met (O.130) Yes Eduardo Last Modified By: Marj Sullivan RN 09/25/19 [...] 50MM 6.5 X 30MM 6.5 X 15MM Cane Flume Watchman DEPUY DEPUY DEPUY Catalog # Lot Number [id number] Expiration Date 05/08/24 03/10/29 01/07/29 Serial Number [id number] REF 1217-30-500 REF 1217-15-500 Device Identifier Human Readable EDDA Machine Readable EDDA MR Class Implant Usage Data Site Hip L Hip L Hip L Quantity 1 1 1 Reason for Explant Reason Not Retained Explant Disposition Fund Accounting Manager Sterility External Indicator Result Internal Indicator Results Outcome Met (O.30) Yes Yes Yes Last Modified By: Marj Sullivan RN, Stephanie RN Sauer, Stephanie RN 09/25/19 13:14:13 09/25/19 13:11:26 09/25/19 13:11:26 Entry 4 Entry 5 Entry 6 Procedure Arthroplasty Total Arthroplasty Total Arthroplasty Total Hip(Left) Hip(Left) Hip(Left) Implant Action Implant Implant Implant Description [employer] CANCELLOUS BONE DEPUY ACETABULAR SHELL DEPUY APEX HOLE SCREW ELIMINATOR Implant Information Implant/Explant 09/25/19 10:50:00 09/25/19 10:50:00 09/25/19 10:50:00 Date/Time Implanted/Explanted Mi Licea James Huddleston, James By: Eduardo Vallejo DO Size 6.5 X 15MM 50MM PS Cane Flume Watchman [employer] Top TV Catalog # Lot Number [id number] Expiration Date 11/07/28 04/07/29 04/07/29 Serial Number REF 1217-15-500 REF [id number] REF 1246-03-000 Device Identifier Human Readable EDDA Machine Readable EDDA MR Class Implant Usage Data Site Hip L Hip L Hip L Quantity 1 1 1 Reason for Explant Reason Not Retained Explant Disposition Fund Accounting Manager Sterility External Indicator Result Internal Indicator Results [...] SHORT NECK COLLAR 12/14 TAPER SIZE 11 Cane Flume Watchman DEPUY DEPUY Catalog # Lot Number [id number] Expiration Date 02/08/24 02/08/24 Serial Number REF [id number] REF 1365-22-000 Device Identifier Human Readable EDDA Machine Readable EDDA MR Class Implant Usage Data Site Hip L Hip L Quantity 1 1 Reason for Explant Reason Not Retained Explant Disposition Fund Accounting Manager Sterility External Indicator Result Internal Indicator Results [...] 09/25/19 15:04 MARSHA [facility] Record MAGR PACU Record [facility] vincent Primary Physician: Mi Licea DO Finalized Date/Time: 09/25/19 12:53:39 Pt. Name: VINCENT HSU /Sex: 1935 FEMALE Med Rec #: [id number] Physician: Mi Licea DO Financial #: [id number] Pt. Type: I Room/Bed: 221/1 Admit/Disch: 09/25/19 06:52:00 - Institution: PACU Case Times MAGR Entry 1 In PACU I 09/25/19 11:50:00 Discharge from PACU 09/25/19 12:40:00 I Last Modified By: Dionne Yun RN 09/25/19 12:53:35 Finalized By: Dionne Yun RN Document Signatures Signed By: Dionne Yun RN 09/25/19 12:53 [facility] MAGR Preoperative Recordon 0 09-25-2019 MAGR Preoperative Record MAGR Pre-Op Record Summary Primary Physician: Mi Licea DO Finalized Date/Time: 09/25/19 11:58:52 Pt. Name: VINCENT HSU /Sex: 1935 FEMALE Med Rec #: [id number] Physician: Mi Licea DO Financial #: [id number] Pt. Type: I Room/Bed: 221/1 Admit/Disch: 09/25/19 [...] Signed By: Dionne Yun RN 09/25/19 11:58 [facility] Nutrition Noteon 09-25-2019 Nutrition Note Pt admitted for sche duled Lt total hip sx; placed on a Regular diet as tolerated w/ post op supplements BID along w/ usual vitamin/mineral supplementation. Nutritional supplements adjusted to what's available in house. Per [place] police lieutenant assessment, Pt reports wt loss of 2-13lb, [...] associates to offer prunes/prune alfred q am. [facility] Operative Report - Surgeon/P hnug 09-25-2019 Operative Report - Surgeon/Physician Preoperative diagnosis: [...] on: 10/18/2019 21:39 EDT] Mi Licea DO [facility] Pharmacy Noteon 09-25-2019 Pharmacy Note [...] [Verified on: 09/25/2019 13:26 EDT] Virgie Santos [facility] Pharmacy Note I have personally [...] [Verified on: 09/25/2019 13:04 EDT] Marj Mccall [facility] Progress Note - Nursejessi 08-1 TSH Qn Pt states that she i s having pain in her lt hip and neck #8 on the scale. Pt also complains of freezing . Temp 97.8. Pt given a warm blanket and medicated with Morphine 2mg IVP as ordered. 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 Performed By: #### 7 [id number], [id number], [id number] #### [facility] (DEFAULT) [address] [place] [address] 96428 UA Bacteria 4+ [facility] Comment on above: Order Comment: Urina lysis Microscopic order added on by Discern Expert Rules system. Performed By: #### 7 [id number], [id number], [id number] #### [facility] (DEFAULT) [address] [place] [address] 17801 UA Squam Epi Rare [facility] Comment on above: Order Comment: Urina lysis Microscopic order added on by Discern Expert Rules system. Performed By: #### 7 [id number], [id number], [id number] #### [facility] (DEFAULT) [address] [place] [address] 92527 UA WBC 0-2 [facility] Comment on above: Order Comment: Urina lysis Microscopic order added on by Discern Expert Rules system. Performed By: #### 7 083574, [id number], [id number] #### [facility] (DEFAULT) [address] [place] [address] 55629 UA w Culture if Ind Standard on 09-25-2019 Breakpoint UA [facility] Comment on above: Order Comment: sim insert Performed By: #### 7 233961, [id number], [id number] #### [facility] (DEFAULT) [address] [place] [address] 16740 Color (U) Yellow [facility] Comment on above: Order Comment: sim insert Performed By: #### 7 [id number], [id number], [id number] #### [facility] (DEFAULT) [address] [place] [address] 00893 Culture? Indicated [facility] Comment on above: Order Comment: sim insert Performed By: #### 7 078842, [id number], [id number] #### [facility] (DEFAULT) [address] [place] [address] 60658 Glucose (U) [Mass/Vol] Negative [facility] Comment on above: Order Comment: sim insert Performed By: #### 7 925941, 65565036, [id number] #### [facility] (DEFAULT) [address] [place] [address] 17296 Ketones Ql (U) Negative Normal [facility] Comment on above: Order Comment: sim insert Performed By: #### 7 704186, [id number], [id number] #### [facility] (DEFAULT) [address] [place] [address] 39715 Micro? Indicated [facility] Comment on above: Order Comment: sim insert Performed By: #### 7 004049, [id number], [id number] #### [facility] (DEFAULT) [address] [place] [address] 34665 UA Bilirubin Negative Normal [facility] Comment on above: Order Comment: sim insert Performed By: #### 7 219713, [id number], [id number] #### [facility] (DEFAULT) [address] [place] [address] 00328 UA Blood Negative Normal NEGATIVE [facility] Comment on above: Order Comment: sim insert Performed By: #### 7 523299, [id number], [id number] #### [facility] (DEFAULT) [address] [place] [address] 22094 UA Clarity CLEAR Normal CLEAR [facility] Comment on above: Order Comment: sim insert Performed By: #### 7 483771, [id number], [id number] #### [facility] (DEFAULT) [address] [place] [address] 19061 UA Leuk Est SMALL Abnormal NEGATIVE [facility] Comment on above: Order Comment: sim insert Performed By: #### 7 422789, [id number], [id number] #### [facility] (DEFAULT) [address] [place] [address] 10533 UA Nitrite Positive Abnormal NEGATIVE [facility] Comment on above: Order Comment: sim insert Performed By: #### 7 508176, [id number], [id number] #### [facility] (DEFAULT) [address] [place] [address] 00556 UA pH 7.0 Normal 5-8 [facility] Comment on above: Order Comment: sim insert Performed By: #### 7 [id number], [id number], [id number] #### [facility] (DEFAULT) [address] [place] [address] 31086 UA Protein Negative Normal NEGATIVE [facility] Comment on above: Order Comment: sim insert Performed By: #### 7 810764, 37762453, [id number] #### [facility] (DEFAULT) [address] [place] [address] 48899 UA Spec Grav 1.020 Normal 1.001-1.03 5 [facility] Comment on above: Order Comment: sim insert Performed By: #### 7 856127, [id number], [id number] #### [facility] (DEFAULT) [address] [place] [address] 97582 UA Urobilinogen 0.2 mg/dL Normal 0.2-1.0 [facility] Comment on above: Order Comment: sim insert Performed By: #### 7 985060, [id number], [id number] #### [facility] (DEFAULT) [address] [place] [address] 27981 Urine Source Clean Catch Normal [facility] Comment on above: Order Comment: sim insert Performed By: #### 7 270577, [id number], [id number] #### [facility] (DEFAULT) [address] [place] [address] 41221 XR Hip Complete Lefton 09-24 XR Hip [...] MD 09/25/19 3:55 pm Technologist: OCHOA NAZARIO [facility] Patient Handouton 09-24-2019 Patient Handout [facility] Progress Note - Nurseon 09-08 Progress Note - Nurse Spoke with pt zach colladoing arrival time of 0700 and NPO status. Verbalized understanding. [Electronically Signed on: 09/22/2019 09:47 EDT] Kimberley Holden RN [Verified on: 09/22/2019 09:47 EDT] Kimberley Holden RN [facility] SARS-CoV-2 (COVID-19) PCRon 09-22-2019 COVID-19 PCR Not Detected Normal Not Detected [facility] Comment on above: Performed By: #### 7 396687, 05023734, [id number] #### [facility] (DEFAULT) [address] [place] [address] Employed in healthcare? Unknown [facility] Comment on above: Performed By: #### 7 830107, 51435087, [id number] #### [facility] (DEFAULT) [address] [place] [address] Group care resident? Unknown [facility] Comment on above: Performed By: #### 7 333026, 55541782, [id number] #### [facility] (DEFAULT) [address] [place] [address] Hospitalized due to COVID-19? Unknown [facility] Comment on above: Performed By: #### 7 315939, 64266584, [id number] #### [facility] (DEFAULT) [address] [place] [address] In ICU? Unknown [facility] Comment on above: Performed By: #### 7 536985, 72400457, [id number] #### [facility] (DEFAULT) [facility] [place] [address] status? Unknown [facility] Comment on above: Performed By: #### 7 430329, 53935709, [id number] #### [facility] (DEFAULT) [address] [place] [address] Symptomatic as defined by CDC? Unknown [facility] Comment on above: Performed By: #### 7 350164, 87391258, [id number] #### [facility] (DEFAULT) [address] [place] [address] Coding Summaryon 09-13-2019 Coding Summary CODING DATE: 020 [facility] STATUS: Home PAYOR: Medicare APC DESCRIPTION 5733 Level 3 Minor Procedures ADMIT DX: REASON FOR VISIT DX: Z01.818 Encounter for other preprocedural examination I10 Essential (primary) hypertension I25.10 Atherosclerotic heart disease of [place] coronary artery without angina pectoris FINAL DX: PRINCIPAL: Z01.818 Encounter for other preprocedural examination SECONDARY: I10 Essential (primary) hypertension I25.10 Atherosclerotic heart disease of [place] coronary artery without angina pectoris K21.9 Gastro-esophageal [...] Marisela Lawrence Date Saved: 09/13/2019 09:18 am [facility] Coding Summaryon 09-06-2019 Coding Summary CODING DATE: [facility] STATUS: Home PAYOR: Medicare APC DESCRIPTION 5733 Level 3 Minor Procedures ADMIT DX: REASON FOR VISIT DX: Z01.818 Encounter for other preprocedural examination I10 Essential (primary) hypertension I25.10 Atherosclerotic heart disease of [place] coronary artery without angina pectoris FINAL DX: PRINCIPAL: Z01.818 Encounter for other preprocedural examination SECONDARY: I10 Essential (primary) hypertension I25.10 Atherosclerotic heart disease of [place] coronary artery without angina pectoris K21.9 Gastro-esophageal reflux disease without esophagitis PYMT PROC APC STAT DESCRIPTION DOCTOR NAME DATE NOTE: The code number assigned matches the documented diagnosis and / or procedure in the patient's chart. However, the narrative phrase printed from the coding software may appear abbreviated, or result in slightly different terminology. Coded By: Marisela Lawrence Date Saved: 09/06/2019 09:20 am [facility] Progress Note - Nurseon - Progress Note - Nurse chart reviewed per Dr Akbar anesthesiologist, and cleared for surgery on 09/25/2019 [Electronically Signed on: 09/04/2019 14:30 EDT] Nimco Albarado RN [Verified on: 09/04/2019 14:30 EDT] Nimco Albarado RN [facility] Progress Note - Nurse Xin at Dr Aydin rosario notified that pt has positive urine culture. [Electronically Signed on: 09/04/2019 13:37 EDT] Dionne Yun RN [Verified on: 09/04/2019 13:37 EDT] Dionne Yun RN [facility] Provider Orderson 09-04-2019 Provider Orders [id number] FF [facility] C Urineon 09-03-2019 C Urine [...] Comment on above: Performed By: #### 1 [id number], [id number], [id number] #### [facility] (DEFAULT) [address] [place] [address] C MRSA Screenon 09-02-2019 C MRSA Screen Negative [facility] Comment on above: Performed By: #### 1 [id number] #### [facility] (DEFAULT) [address] [place] [address] .Auto Diff 1on 09-01-2019 Auto [place] % 10 % Normal 1-12 [facility] Comment on above: Performed By: #### 7 [id number], [id number], [id number] #### [facility] (DEFAULT) [address] [place] [address] Baso Abs# 0.0 x10 Normal 0.0-0.2 [facility] Comment on above: Performed By: #### 7 258846, 12452935, [id number] #### [facility] (DEFAULT) [address] [place] [address] Basophils/100 WBC (Bld) 0.3 % Normal 0.2-2.0 [facility] Comment on above: Performed By: #### 7 803976, 23552609, [id number] #### [facility] (DEFAULT) [address] [place] [address] 71915 Eos Abs# 0.1 x10 Normal 0.0-0.4 [facility] Comment on above: Performed By: #### 7 158456, [id number], [id number] #### [facility] (DEFAULT) [address] [place] [address] 84478 Eosinophils/100 WBC (Bld) 0.9 % Normal 0.9-4.0 [facility] Comment on above: Performed By: #### 7 549375, 86152784, [id number] #### [facility] (DEFAULT) [address] [place] [address] 32458 Lymphocytes (Bld) [#/Vol] 1.0 x10 Low 1.3-2.9 [facility] Comment on above: Performed By: #### 7 437266, [id number], [id number] #### [facility] (DEFAULT) [address] [place] [address] 64360 Lymphocytes/100 WBC (Bld) 10 % Low 14-48 [facility] Comment on above: Performed By: #### 7 830880, [id number], [id number] #### [facility] (DEFAULT) [address] [place] [address] 52285 [place] Abs# 1.0 x10 High 0.0-0.8 [facility] Comment on above: Performed By: #### 7 123744, [id number], [id number] #### [facility] (DEFAULT) [address] [place] [address] 48400 Neut Abs# 8.0 x10 Normal 1.5-9.2 [facility] Comment on above: Performed By: #### 7 804389, [id number], [id number] #### [facility] (DEFAULT) [address] [place] [address] 71280 Neutrophils/100 WBC (Bld) 79 % Normal 44-88 [facility] Comment on above: Performed By: #### 7 [id number], [id number], [id number] #### [facility] (DEFAULT) [address] [place] [address] 76248 [facility] 09-01-2019 eGFR Non AA 44 mL/min/1.73m2 [facility] Comment on above: Performed By: #### 7 [id number], [id number], [id number] #### [facility] (DEFAULT) [address] [place] [address] 30689 eGFR AA 54 mL/min/1.73m2 [facility] Comment on above: Result Comment: [employer] kody Kidney disease could be indicated at eGFRs of less than 60 ml/min/1.73m2. Kidney Failure is indicated at less than 15 ml/min/1.73m2 Performed By: #### 7 [id number], [id number], [id number] #### [facility] (DEFAULT) [address] [place] [address] 90413 Anion gap [Moles/Vol] 15.0 mmol/L Normal 5.0-19.0 [facility] Comment on above: Performed By: #### 7 [id number], [id number], [id number] #### [facility] (DEFAULT) [address] [place] [address] 80918 Calcium [Mass/Vol] 9.2 mg/dL Normal 8.9-10.[address] [facility] Comment on above: Performed By: #### 7 [id number], [id number], [id number] #### [facility] (DEFAULT) [address] [place] [address] 82665 Chloride [Moles/Vol] 101 mmol/L Normal 101-111 [facility] Comment on above: Performed By: #### 7 [id number], [id number], [id number] #### [facility] (DEFAULT) [address] [place] [address] 04868 CO2 [Moles/Vol] 25 mmol/L Normal 21-32 [facility] Comment on above: Performed By: #### 7 [id number], [id number], [id number] #### [facility] (DEFAULT) [address] [place] [address] 50971 Creatinine [Mass/Vol] 1.17 mg/dL Normal 0.60-1.30 [facility] Comment on above: Performed By: #### 7 [id number], [id number], [id number] #### [facility] (DEFAULT) [address] [place] [address] 32441 Glucose [Mass/Vol] 94.0 mg/dL Normal 74.0-118.[address] [facility] Comment on above: Performed By: #### 7 [id number], [id number], [id number] #### [facility] (DEFAULT) [address] [place] [address] 46738 Osmolality [Osmolality] 276 mOsm/L [facility] Comment on above: Performed By: #### 7 [id number], [id number], [id number] #### [facility] (DEFAULT) [address] [place] [address] 61635 Potassium [Moles/Vol] 4.0 mmol/L Normal 3.6-5.1 [facility] Comment on above: Performed By: #### 7 865568, [id number], [id number] #### [facility] (DEFAULT) [address] [place] [address] 14558 Sodium [Moles/Vol] 137.0 mmol/L Normal 136.0-144 . 0 [facility] Comment on above: Performed By: #### 7 512042, [id number], [id number] #### [facility] (DEFAULT) [address] [place] [address] 81694 Urea nitrogen [Mass/Vol] 20 mg/dL Normal 8-26 [facility] Comment on above: Performed By: #### 7 274236, [id number], [id number] #### [facility] (DEFAULT) [address] [place] [address] Urea nitrogen/Creatinine [Mass ratio] 17.0 mg/mg High 4.6-16.2 [facility] Comment on above: Performed By: #### 7 444609, [id number], [id number] #### [facility] (DEFAULT) [address] [place] [address] 79670 CBC w/ Auto Diffon 0 Erythrocyte distribution width (RBC) [Ratio] 13.9 % Normal 11.5-15.0 [facility] Comment on above: Performed By: #### 7 904717, [id number], [id number] #### [facility] (DEFAULT) [address] [place] [address] Hematocrit (Bld) [Volume fraction] 38.5 % Normal 33.7-40.4 [facility] Comment on above: Performed By: #### 7 950324, [id number], [id number] #### [facility] (DEFAULT) [address] [place] [address] Hemoglobin (Bld) [Mass/Vol] 12.6 g/dL Normal 11.3-15.9 [facility] Comment on above: Performed By: #### 7 958698, [id number], [id number] #### [facility] (DEFAULT) [address] [place] [address] Man Diff? Auto Normal [facility] Comment on above: Performed By: #### 7 228891, [id number], [id number] #### [facility] (DEFAULT) [address] [place] [address] MCH (RBC) [Entitic mass] 33 pg Normal 24-34 [facility] Comment on above: Performed By: #### 7 188092, [id number], [id number] #### [facility] (DEFAULT) [address] [place] [address] MCHC (RBC) [Mass/Vol] 33 g/dL Normal 26-37 [facility] Comment on above: Performed By: #### 7 [id number], [id number], [id number] #### [facility] (DEFAULT) [address] [place] [address] MCV (RBC) [Entitic vol] 101 fL High 81-100 [facility] Comment on above: Performed By: #### 7 612443, [id number], [id number] #### [facility] (DEFAULT) [address] [place] [address] Platelet mean volume (Bld) [Entitic vol] 9.5 fL Normal 6.3-10.2 [facility] Comment on above: Performed By: #### 7 [id number], [id number], [id number] #### [facility] (DEFAULT) [address] [place] [address] 62405 Platelets (Bld) [#/Vol] 292 x10 Normal 138-427 [facility] Comment on above: Performed By: #### 7 862531, [id number], [id number] #### [facility] (DEFAULT) [address] [place] [address] 16096 RBC (Bld) [#/Vol] 3.82 x10 Normal 3.70-5.30 [facility] Comment on above: Performed By: #### 7 [id number], [id number], [id number] #### [facility] (DEFAULT) [address] [place] [address] 90722 WBC (Bld) [#/Vol] 10.1 x10 Normal 3.5-10.5 [facility] Comment on above: Performed By: #### 7 786397, [id number], [id number] #### [facility] (DEFAULT) [address] [place] [address] 31156 UA [id number] 09-01-2019 RBC (U) [#/Vol] None Seen [facility] Comment on above: Order Comment: Urina lysis Microscopic order added on by [employer] system. Performed By: #### 1 [id number], [id number], [id number] #### [facility] (DEFAULT) [address] [place] [address] 39482 UA Amorph. 1+ Normal [facility] Comment on above: Order Comment: Urina lysis Microscopic order added on by [employer] system. Performed By: #### 1 [id number], [id number], [id number] #### [facility] (DEFAULT) [address] [place] [address] 38018 UA Bacteria 4+ Normal [facility] Comment on above: Order Comment: Urina lysis Microscopic order added on by [employer] system. Performed By: #### 1 [id number], [id number], [id number] #### [facility] (DEFAULT) [address] [place] [address] 19438 UA Squam Epi Moderate Normal [facility] Comment on above: Order Comment: Urina lysis Microscopic order added on by [employer] system. Performed By: #### 1 [id number], [id number], [id number] #### [facility] (DEFAULT) [address] [place] [address] 97051 UA WBC 15-20 Normal [facility] Comment on above: Order Comment: Urina lysis Microscopic order added on by [employer] system. Performed By: #### 1 [id number], [id number], [id number] #### [facility] (DEFAULT) [address] [place] [address] UA w Culture if Ind Standard on 09-01-2019 Breakpoint UA Normal [facility] Comment on above: Performed By: #### 1 [id number], [id number], [id number] #### [facility] (DEFAULT) [address] [place] [address] Color (U) Yellow Normal [facility] Comment on above: Performed By: #### 1 [id number], [id number], [id number] #### [facility] (DEFAULT) [address] [place] [address] Culture? Yes Normal [facility] Comment on above: Performed By: #### 1 [id number], [id number], [id number] #### [facility] (DEFAULT) [address] [place] [address] 29605 Glucose (U) [Mass/Vol] Negative [facility] Comment on above: Performed By: #### 1 [id number], [id number], [id number] #### [facility] (DEFAULT) [address] [place] [address] 27891 Ketones Ql (U) Negative [facility] Comment on above: Performed By: #### 1 [id number], [id number], [id number] #### [facility] (DEFAULT) [address] [place] [address] 90588 Micro? Indicated [facility] Comment on above: Performed By: #### 1 [id number], [id number], [id number] #### [facility] (DEFAULT) [address] [place] [address] 36896 UA Bilirubin Negative Normal [facility] Comment on above: Performed By: #### 1 [id number], [id number], [id number] #### [facility] (DEFAULT) [address] [place] [address] 67866 UA Blood TRACE Abnormal NEGATIVE [facility] Comment on above: Performed By: #### 1 [id number], [id number], [id number] #### [facility] (DEFAULT) [address] [place] [address] 85570 UA Clarity CLEAR Normal CLEAR [facility] Comment on above: Performed By: #### 1 [id number], [id number], [id number] #### [facility] (DEFAULT) [address] [place] [address] 27418 UA Leuk Est MODERATE Abnormal NEGATIVE [facility] Comment on above: Performed By: #### 1 [id number], [id number], [id number] #### [facility] (DEFAULT) [address] [place] [address] 54417 UA Nitrite Positive Abnormal NEGATIVE [facility] Comment on above: Performed By: #### 1 [id number], [id number], [id number] #### [facility] (DEFAULT) [address] [place] [address] 91531 UA pH 5.5 Normal 5-8 [facility] Comment on above: Performed By: #### 1 [id number], [id number], [id number] #### [facility] (DEFAULT) [address] [place] [address] 13948 UA Protein Negative Normal NEGATIVE [facility] Comment on above: Performed By: #### 1 [id number], [id number], [id number] #### [facility] (DEFAULT) [address] [place] [address] 05642 UA Spec Grav 1.025 Normal 1.001-1.[address] [place] [address] Comment on above: Performed By: #### 1 [id number], [id number], [id number] #### [facility] (DEFAULT) [address] [place] [address] 55408 UA Urobilinogen 0.2 mg/dL Normal 0.2-1.0 [facility] Comment on above: Performed By: #### 1 [id number], [id number], [id number] #### [facility] (DEFAULT) [address] [place] [address] 93496 Urine Source Clean Catch Normal [facility] Comment on above: Performed By: #### 1 [id number], [id number], [id number] #### [facility] (DEFAULT) [address] [place] [address] 39101 JOINT PAIN INJECTIONon 09-06 JOINT PAIN INJECTION [facility] Department of Radiology [address] [place] [address] Patient Name: VINCENT HSU : 1935 Sex: F Age: Race: White Pt. Location: Patient Status: D Ordered Date: 08/08/2018 3:50:00 PM Completed Date: 09/06/2018 03:43 PM Requesting Provider: HERMELINDO HILLMAN Attending Provider: HERMELINDO HILLMAN Report Copy To: GYPSY MCMAHON Signs & Symptoms: M16.12 Unilateral primary osteoarthritis, left hip I10 History: Tennyson Comments: , Dr. Ochoa , Body Part: [...] guidance. Electronically signed by:Christy Ochoa. Transcribed by: [email or web address], User Resident: Electronically Signed by: CHRISTY OCHOA @ 09/09/2018 05:57 PM Normal [facility] Comment on above: Order Comment: , Dr. Ochoa , Body Part: Hip , Side: LEFT , Dr. Ochoa , Body Part: Hip , Side: LEFT , , , Ordering Provider - HERMELINDO HILLMAN MD , CT 3D LOWER EXTREMITY WO CON TRAST LEFTon 08-02-2018 CT 3D LOWER EXTREMITY WO CONTRAST LEFT [facility] Department of Radiology [address] [place] [id number] Patient Name: VINCENT SHU : 1935 Sex: F Age: Race: White Pt. Location: Patient Status: D Ordered Date: 07/22/2018 9:55:00 AM Completed Date: 08/02/2018 09:41 AM Requesting Provider: MIRTHA VELÁSQUEZ Attending Provider: MIRTHA VELÁSQUEZ Report Copy To: GYPSY MCMAHON Signs & Symptoms: S72.045D Nondisp fx of base of nk of l femr, 7thD I10 History: Faina, PHONE:[phone] OR [phone],*NEEDS ORTHO F/U APPT. MEDICARE NO PC REQ [...] arthritis. Electronically signed by:Coy Jerome. Transcribed by: [email or web address], User Resident: Electronically Signed by: COY JEROME @ 08/08/2018 02:20 PM Normal [facility] Comment on above: Order Comment: , Jessie perkins left hip healing HIP LEFT 1 OR 2 VWS WITH PEL VISon 03-18-2018 HIP LEFT 1 OR 2 VWS WITH PELVIS [facility] Department of Radiology [address] [place] [phone] Patient Name: VINCENT HSU : 1935 Sex: F Age: Race: White Pt. Location: Patient Status: Ordered Date: 03/18/2018 1:20:00 PM Completed Date: 03/18/2018 01:54 PM Requesting Provider: MIRTHA VELÁSQUEZ Attending Provider: Report Copy To: Signs & Symptoms: S72.045D Nondisp fx of base of nk of l femr, 7thD I10 History: Tennyson Comments: , , , Ordering Provider - [...] THE RADIOLOGIST: , , , Ordering Provider Brennan VELÁSQUEZ PA-C , PROTOCOL: AP(PA) and Lateral views were obtained. COMPARISON: January 10, 2018 FINDINGS: Soft tissues: No change Bones: No change Joints: No change IMPRESSION: Left femoral neck fracture with screw fixation superimposed upon senescent and degenerative skeleton similar to prior study Electronically signed by:Coy Jerome. Transcribed by: [email or web address], User Resident: Electronically Signed by: COY JEROME @ 03/18/2018 02:19 PM Normal [facility] Comment on above: Order Comment: , , = ========= , Ordering Provider Brennan VELÁSQUEZ PA-C , HIP LEFT 1 OR 2 VWS WITH PEL VISon 01-10-2018 HIP LEFT 1 OR 2 VWS WITH PELVIS [facility] Department of Radiology [address] [place] [id number] Patient Name: VINCENT HSU : 1935 [...] arthritis. Electronically signed by:Manjit Whatley. Transcribed by: [email or web address], User Resident: Electronically Signed by: MANJIT WHATLEY @ 01/10/2018 04:38 PM Normal [facility] Comment on above: Order Comment: , Vie ws (X-RAY, HIP): Radiologic Protocol , Views (X-RAY, HIP): Radiologic Protocol , , , Ordering Provider - MIRTHA VELÁSQUEZ PA-C , HIP LEFT 1 OR 2 VWS WITH PEL VISon 11-01-2017 HIP LEFT 1 OR 2 VWS WITH PELVIS [facility] Department of Radiology [address] [place] [phone] Patient Name: VINCENT HSU : 1935 Sex: F Age: Race: White Pt. Location: Patient Status: Ordered Date: 11/01/2017 3:00:00 PM Completed Date: 11/01/2017 03:00 PM Requesting Provider: MIRTHA VELÁSQUEZ Attending Provider: Report Copy To: Signs & Symptoms: S72.045D Nondisp fx of base of nk of l femr, 7thD I10 History: Tennyson Comments: , Views (X-RAY, HIP): Radiologic Protocol [...] study. Electronically signed by:Gerson Rodriguez. Transcribed by: [email or web address], User Resident: Electronically Signed by: GERSON RODRIGUEZ @ 11/01/2017 03:25 PM Normal [facility] Comment on above: Order Comment: , Carmella ws (X-RAY, HIP): Radiologic Protocol , Views (X-RAY, HIP): Radiologic Protocol , , , Ordering Rebeka VELÁSQUEZ PA-C , HIP LEFT 1 OR 2 VWS WITH PEL VISon 09-21-2017 HIP LEFT 1 OR 2 VWS WITH PELVIS [facility] Department of Radiology [address] [place] [phone] Patient Name: VINCENT HSU : 1935 [...] fracture Electronically signed by:Coy Jerome. Transcribed by: [email or web address], User Resident: Electronically Signed by: COY JEROME @ 09/21/2017 03:27 PM [facility] Comment on above: Order Comment: , , = ========= , Ordering Rebeka VELÁSQUEZ PA-C , Vital Signs Date Time Vital Sign Value Performing Clinician Facility 12-09-2023 10: Body height 177.8 cm Deuce Kirkland MD Work Phone: [facility] 12-09-2023 10:02-0400 Body mass index (BMI) [Ratio] 19.66 kg/m2 Deuce Kirkland MD Work Phone: [facility] 12-09-2023 10:02-0400 Body temperature 97.3 [degF] Deuce Kirkland MD Work Phone: [facility] 12-09-2023 10:02-0400 Body weight 62.14 kg Deuce Kirkland MD Work Phone: [facility] 12-09-2023 10:02-0400 Diastolic blood pressure 72 mm[Hg] Deuce Kirkland MD Work Phone: [facility] 12-09-2023 10:02-0400 Heart rate 78 /min Deuce Kirkland MD Work Phone: [facility] 12-09-2023 10:02-0400 SaO2% (BldA) [Mass fraction] 98 % Deuce Kirkland MD Work Phone: [facility] 12-09-2023 10:02-0400 Systolic blood pressure 172 mm[Hg] Deuce Kirkland MD Work Phone: [facility] 11-16-2023 09:04-0400 Body height 175.3 cm [facility] 11-16-2023 09:04-0400 Body mass index (BMI) [Ratio] 19.94 kg/m2 [facility] 11-16-2023 09:04-0400 Body weight 61.24 kg [facility] 05-24-2023 13:35-0400 Body height 177.8 cm MD Gypsy Mcmahon Work Phone: [facility] 05-24-2023 13:35-0400 Body mass index (BMI) [Ratio] 18.8 kg/m2 MD Gypsy Mcmahon Work Phone: [facility] 05-24-2023 13:35-0400 Body temperature 97.7 [degF] MD Gypsy Mcmahon Work Phone: [facility] 05-24-2023 13:35-0400 Body weight 59.42 kg MD Gypsy Mcmahon Work Phone: [facility] 05-24-2023 13:35-0400 Diastolic blood pressure 54 mm[Hg] MD Gypsy Mcmahon Work Phone: [facility] 05-24-2023 13:35-0400 Heart rate 63 /min MD Gypsy Mcmahon Work Phone: [facility] 05-24-2023 13:35-0400 Systolic blood pressure 127 mm[Hg] MD Gypsy Mcmahon Work Phone: [facility] 05-21-2023 10:26-0400 Body height 177.8 cm MD Gypsy Mcmahon Work Phone: [facility] 05-21-2023 09:54-0400 Body mass index (BMI) [Ratio] 18.6 kg/m2 MD Gypsy Mcmahon Work Phone: [facility] 05-21-2023 09:54-0400 Body weight 58.96 kg MD Gypsy Mcmahon Work Phone: [facility] 05-05-2023 16:40-0400 Diastolic blood pressure 71 mm[Hg] MD Jacinto Max Work Phone: [facility] 05-05-2023 16:40-0400 Systolic blood pressure 170 mm[Hg] MD Jacinto Max Work Phone: [facility] 05-05-2023 16:36-0400 Body height 177.8 cm MD Jacinto Max Work Phone: [facility] 05-05-2023 16:36-0400 Body temperature 98.1 [degF] MD Jacinto Max Work Phone: [facility] 05-05-2023 16:36-0400 Body weight 59.87 kg MD Jacinto Max Work Phone: [facility] 05-05-2023 16:36-0400 Heart rate 71 /min MD Jacinto Max Work Phone: [facility] 05-05-2023 16:36-0400 Respiratory rate 18 /min MD Jacinto Max Work Phone: [facility] 05-05-2023 16:36-0400 SaO2% (BldA) [Mass fraction] 98 % MD Jacinto Max Work Phone: [facility] 04-15-2023 13:30-0500 Body height 167.64 cm MD Jacinto Max Work Phone: [facility] 04-15-2023 13:30-0500 Body mass index (BMI) [Ratio] 20.8 kg/m2 MD Jacinto Max Work Phone: [facility] 04-15-2023 13:30-0500 Body temperature 97.2 [degF] MD Jacinto Max Work Phone: [facility] 04-15-2023 13:30-0500 Body weight 58.57 kg MD Jacinto Max Work Phone: [facility] 04-15-2023 13:30-0500 Diastolic blood pressure 75 mm[Hg] MD Jacinto Max Work Phone: [facility] 04-15-2023 13:30-0500 Heart rate 60 /min MD Jacinto Max Work Phone: [facility] 04-15-2023 13:30-0500 Systolic blood pressure 165 mm[Hg] MD Jacinto Max Work Phone: [facility] 02-26-2023 10:00-0500 Body height 167.64 cm MD Jacinto Max Work Phone: [facility] 02-26-2023 10:00-0500 Diastolic blood pressure 76 mm[Hg] MD Jacinto Max Work Phone: [facility] 02-26-2023 10:00-0500 Systolic blood pressure 156 mm[Hg] MD Jacinto Max Work Phone: [facility] 02-25-2023 10:15-0500 Body height 175.26 cm MD Jacinto Max Work Phone: [facility] 02-25-2023 10:15-0500 Body weight 59.1 kg MD Jacinto Max Work Phone: [facility] 02-25-2023 10:02-0500 Diastolic blood pressure 74 mm[Hg] MD Jacinto Max Work Phone: [facility] 02-25-2023 10:02-0500 Heart rate 67 /min MD Jacinto Max Work Phone: [facility] 02-25-2023 10:02-0500 Systolic blood pressure 157 mm[Hg] MD Jacinto Max Work Phone: [facility] 02-18-2023 14:00-0500 Body height 167.64 cm Jacinto Max Other [facility] 02-18-2023 14:00-0500 Body mass index (BMI) [Ratio] 20.66 kg/m2 Jacinto Max Other [facility] [employer] Other 02-18-2023 14:00-0500 Body temperature 97.2 [degF] Jacinto Max Other [facility] [employer] Other 02-18-2023 14:00-0500 Body weight 58.06 kg Jacinto Max Other [facility] [employer] Other 02-18-2023 14:00-0500 Body weight 58.05 kg MD Jacinto Max Work Phone: [facility] 02-18-2023 14:00-0500 Diastolic blood pressure 66 mm[Hg] Jacinto Max Other [facility] 02-18-2023 14:00-0500 Systolic blood pressure 150 mm[Hg] Jacinto Max Other [facility] 02-16-2023 13:30-0500 Body height 167.64 cm Gypsy Mcmahon Other [facility] 02-16-2023 13:30-0500 Body mass index (BMI) [Ratio] 20.66 kg/m2 Gypsy Mcmahon Other [facility] [employer] Other 02-16-2023 13:30-0500 Body weight 58.06 kg Gypsy Mcmahon Other [facility] [employer] Other 02-16-2023 13:30-0500 Body weight 58.05 kg MD Jacinto Max Work Phone: [facility] 02-16-2023 13:30-0500 Diastolic blood pressure 68 mm[Hg] Gypsy Mcmahon Other [facility] 02-16-2023 13:30-0500 SaO2% (BldA) [Mass fraction] 96 % Gypsy Mcmahon Other [facility] [employer] Other 02-16-2023 13:30-0500 Systolic blood pressure 140 mm[Hg] Gypsy Mcmahon Other [facility] 02-04-2023 09:09-0500 Heart rate 84 /min MALATHI DEB [facility] 02-04-2023 09:09-0500 SaO2% (BldA) [Mass fraction] 95 % MALATHI DEB [facility] 02-04-2023 09:08-0500 Diastolic blood pressure 88 mm[Hg] MALATHI DEB [facility] 02-04-2023 09:08-0500 Mean blood pressure 121 mm[Hg] MALATHI DEB [facility] 02-04-2023 09:08-0500 Systolic blood pressure 188 mm[Hg] MALATHI DEB [facility] 02-04-2023 09:08-0500 Respiratory rate 20 /min MALATHI DEB [facility] 02-04-2023 09:08-0500 Body temperature 97.7 [degF] MALATHI DEB [facility] 02-03-2023 09:15-0500 Heart rate 77 /min MALATHI DEB [facility] 02-03-2023 09:15-0500 SaO2% (BldA) [Mass fraction] 97 % MALATHI DEB [facility] 02-03-2023 09:14-0500 Respiratory rate 18 /min MALATHI DEB [facility] 02-03-2023 09:14-0500 Diastolic blood pressure 97 mm[Hg] MALATHI DEB [facility] 02-03-2023 09:14-0500 Mean blood pressure 130 mm[Hg] MALATHI DEB [facility] [facility] 02-03-2023 09:14-0500 Systolic blood pressure 197 mm[Hg] MALATHI DEB [facility] 02-03-2023 09:13-0500 Body temperature 98.06 [degF] MALATHI DEB [facility] 02-02-2023 09:10-0500 Heart rate 75 /min MALATHI DEB [facility] 02-02-2023 09:10-0500 SaO2% (BldA) [Mass fraction] 93 % MALATHI DEB [facility] 02-02-2023 09:09-0500 Respiratory rate 20 /min MALATHI DEB [facility] 02-02-2023 09:08-0500 Diastolic blood pressure 87 mm[Hg] MALATHI DEB [facility] 02-02-2023 09:08-0500 Mean blood pressure 123 mm[Hg] MALATHI DEB [facility] 02-02-2023 09:08-0500 Systolic blood pressure 194 mm[Hg] MALATHI DEB [facility] 02-02-2023 09:08-0500 Body temperature 97.7 [degF] MALATHI DEB [facility] 02-01-2023 09:50-0500 Heart rate 77 /min MALATHI DEB [facility] 02-01-2023 09:50-0500 Mean blood pressure 115 mm[Hg] MALATHI DEB [facility] 02-01-2023 09:10-0500 Heart rate 84 /min MALATHI DEB [facility] 01-29-2023 11:26-0500 Heart rate 75 /min MALATHI DEB [facility] 01-29-2023 11:26-0500 SaO2% (BldA) [Mass fraction] 95 % MALATHI DEB [facility] 01-29-2023 11:26-0500 Respiratory rate 16 /min MALATHI DEB [facility] 01-29-2023 11:25-0500 Diastolic blood pressure 83 mm[Hg] MALATHI DEB [facility] 01-29-2023 11:25-0500 Mean blood pressure 108 mm[Hg] MALATHI DEB [facility] 01-29-2023 11:25-0500 Systolic blood pressure 158 mm[Hg] MALATHI DEB [facility] 01-29-2023 11:25-0500 Body temperature 98.06 [degF] MALATHI DEB [facility] 01-29-2023 10:54-0500 Heart rate 74 /min MALATHI DEB [facility] 01-29-2023 10:54-0500 SaO2% (BldA) [Mass fraction] 97 % MALATHI DEB [facility] 01-29-2023 10:54-0500 Respiratory rate 16 /min MALATHI DEB [facility] 01-29-2023 10:53-0500 Body temperature 97.52 [degF] MALATHI DEB [facility] 01-29-2023 10:53-0500 Diastolic blood pressure 84 mm[Hg] MALATHI DEB [facility] 01-29-2023 10:53-0500 Mean blood pressure 104 mm[Hg] MALATHI DEB [facility] 01-29-2023 10:53-0500 Systolic blood pressure 146 mm[Hg] MALATHI DEB [facility] 01-12-2023 13:30-0500 Body height 167.64 cm Hunter Brown Other [facility] Other 01-12-2023 13:30-0500 Body mass index (BMI) [Ratio] 22 kg/m2 Hunter Brown Other [facility] Other 01-12-2023 13:30-0500 Body weight 61.83 kg Hunter Brown Other [facility] Other 01-12-2023 13:30-0500 Diastolic blood pressure 60 mm[Hg] Hunter Manny Other [facility] Other 01-12-2023 13:30-0500 Systolic blood pressure 137 mm[Hg] Hunter Manny Other [facility] Other 01-05-2023 11:30-0500 Body height 167.64 cm Gypsy Mcmahon Other [facility] Other 01-05-2023 11:30-0500 Body mass index (BMI) [Ratio] 21.63 kg/m2 Gypsy Mcmahon Other [facility] Other 01-05-2023 11:30-0500 Body weight 60.78 kg Gypsy Mcmahon Other [facility] Other 01-05-2023 11:30-0500 Diastolic blood pressure 72 mm[Hg] Gypsy Mcmahon Other [facility] Other 01-05-2023 11:30-0500 Systolic blood pressure 162 mm[Hg] Gypsy Mcmahon Other [facility] Other 12-28-2022 13:30-0500 Body height 167.64 cm Malathi Velázquez Other [facility] Other 12-28-2022 13:30-0500 Body mass index (BMI) [Ratio] 19.98 kg/m2 Malathi Velázquez Other [facility] Other 12-28-2022 13:30-0500 Body weight 56.16 kg Malathi Velázquez Other [facility] Other 12-28-2022 13:30-0500 Diastolic blood pressure 78 mm[Hg] Malathi Velázquez Other [facility] Other 12-28-2022 13:30-0500 Systolic blood pressure 146 mm[Hg] Malathi Velázquez Other [facility] Other 12-15-2022 11:15-0500 Body height 167.64 cm Gypsy Mcmahon Other [facility] Other 12-15-2022 11:15-0500 Body mass index (BMI) [Ratio] 21.53 kg/m2 Gypsy Mcmahon Other [facility] Other 12-15-2022 11:15-0500 Body weight 60.51 kg Gypsy Mcmahon Other [facility] Other 12-15-2022 11:15-0500 Diastolic blood pressure 73 mm[Hg] Gypsy Mcmahon Other [facility] Other 12-15-2022 11:15-0500 Systolic blood pressure 178 mm[Hg] Gypsy Mcmahon Other [facility] Other 09-22-2022 14:14-0400 Blood Pressure Location MALATHI VIEIRA [facility] 09-22-2022 14:14-0400 Diastolic blood pressure 90 mm[Hg] MALATHI VIEIRA [facility] 09-22-2022 14:14-0400 Heart rate 78 /min MALATHI VIEIRA [facility] 09-22-2022 14:14-0400 Systolic blood pressure 142 mm[Hg] MALATHI VIEIRA [facility] 09-01-2022 14:15-0400 Body height 167.64 cm Gypsy Mcmahon Other [facility] Other 09-01-2022 14:15-0400 Body mass index (BMI) [Ratio] 21.14 kg/m2 Gypsy Mcmahon Other [facility] Other 09-01-2022 14:15-0400 Body weight 59.42 kg Gypsy Mcmahon Other [facility] Other 09-01-2022 14:15-0400 Diastolic blood pressure 56 mm[Hg] Gypsy Mcmahon Other [facility] Other 09-01-2022 14:15-0400 Systolic blood pressure 132 mm[Hg] Gypsy Mcmahon Other [facility] Other 06-09-2022 13:42-0400 Diastolic blood pressure 71 mm[Hg] Marvin KWON [facility] 06-09-2022 13:42-0400 Heart rate 59 /min Marvin KWON [facility] 06-09-2022 13:42-0400 Systolic blood pressure 183 mm[Hg] Marvin KWON [facility] 04-24-2022 11:30-0400 Body height 167.64 cm Hunter Brown Other [facility] Other 04-24-2022 11:30-0400 Body mass index (BMI) [Ratio] 22.11 kg/m2 Hunter Brown Other [facility] Other 04-24-2022 11:30-0400 Body weight 62.14 kg Hunter Brown Other [facility] Other 04-24-2022 11:30-0400 Diastolic blood pressure 70 mm[Hg] Hunter Brown Other [facility] Other 04-24-2022 11:30-0400 Systolic blood pressure 159 mm[Hg] Hunter Brown Other [facility] Other 04-07-2022 14:15-0500 Body height 167.64 cm Gypsy Mcmahon Other [facility] Other 04-07-2022 14:15-0500 Body mass index (BMI) [Ratio] 21.79 kg/m2 Gypsy Mcmahon Other [facility] Other 04-07-2022 14:15-0500 Body weight 61.24 kg Gypsy Mcmahon Other [facility] Other 04-07-2022 14:15-0500 Diastolic blood pressure 62 mm[Hg] Gypsy Mcmahon Other [facility] Other 04-07-2022 14:15-0500 Systolic blood pressure 130 mm[Hg] Gypsy Mcmahon Other [facility] Other 03-11-2022 13:35-0500 Body temperature 97.5 [degF] MD Gypsy Mcmahon Work Phone: [facility] 03-11-2022 13:35-0500 Diastolic blood pressure 61 mm[Hg] MD Gypsy Mcmahon Work Phone: [facility] 03-11-2022 13:35-0500 Heart rate 60 /min MD Gypsy Mcmahon Work Phone: [facility] 03-11-2022 13:35-0500 Respiratory rate 18 /min MD Gypsy Mcmahon Work Phone: [facility] 03-11-2022 13:35-0500 SaO2% (BldA) [Mass fraction] 96 % MD Gypsy Mcmahon Work Phone: [facility] 03-11-2022 13:35-0500 Systolic blood pressure 135 mm[Hg] MD Gypsy Mcmahon Work Phone: [facility] 02-16-2022 10:45-0500 Body height 167.64 cm Gypsy Mcmahon Other [facility] [employer] Other 02-16-2022 10:45-0500 Body mass index (BMI) [Ratio] 21.46 kg/m2 Gypsy Mcmahon Other [facility] Other 02-16-2022 10:45-0500 Body weight 60.33 kg Gypsy Mcmahon Other [facility] Other 02-16-2022 10:45-0500 Diastolic blood pressure 70 mm[Hg] Gypsy Mcmahon Other [facility] Other 02-16-2022 10:45-0500 Systolic blood pressure 120 mm[Hg] Gypsy Mcmahon Other [facility] Other 02-11-2022 12:00-0500 Body height 172.72 cm Hunter Brown Other [facility] Other 02-11-2022 12:00-0500 Body mass index (BMI) [Ratio] 20.83 kg/m2 Hunter Brown Other [facility] Other 02-11-2022 12:00-0500 Body weight 62.14 kg Hunter Brown Other [facility] Other 02-11-2022 12:00-0500 Diastolic blood pressure 68 mm[Hg] Hunter Brown Other [facility] Other 02-11-2022 12:00-0500 Systolic blood pressure 144 mm[Hg] Hunter Brown Other [facility] Other 01-05-2022 10:30-0500 Body height 172.72 cm Hunter Brown Other [facility] Other 01-05-2022 10:30-0500 Body mass index (BMI) [Ratio] 22.04 kg/m2 Hunter Brown Other [facility] Other 01-05-2022 10:30-0500 Body weight 65.77 kg Hunter Brown Other [facility] Other 01-05-2022 10:30-0500 Diastolic blood pressure 78 mm[Hg] Hunter Brown Other [facility] Other 01-05-2022 10:30-0500 Systolic blood pressure 166 mm[Hg] Hunter Brown Other [facility] Other 03-27-2021 12:00-0500 Body height 172.72 cm Giana Villar Other [facility] Other 03-27-2021 12:00-0500 Body mass index (BMI) [Ratio] 22.96 kg/m2 Giana Villar Other [facility] Other 03-27-2021 12:00-0500 Body weight 68.49 kg Giana Villar Other [facility] Other 01-27-2021 10:45-0500 Body height 172.72 cm Giana Villar Other [facility] Other 01-27-2021 10:45-0500 Body mass index (BMI) [Ratio] 24.48 kg/m2 Giana Villar Other [facility] Other 01-27-2021 10:45-0500 Body weight 73.03 kg Giana Villar Other [facility] Other Encounters Encounter Date Encounter Type Care Provider Facility Start: 12-15-2023 End: 12-15-2023 Orders Only [facility] Comment on above: Venous ulcer of ankl e, right ([facility]-HCC) (Primary Dx) Start: 12-14-2023 End: 12-14-2023 Bamboo flowsheet Sunny Ingram [employer] Work Phone: [facility] Start: 12-14-2023 End: 12-14-2023 Bamboo flowsheet Sunny Ingram [employer] Work Phone: [facility] Start: 12-14-2023 End: 12-14-2023 ambulatory SUNNY INGRAM Not Available Start: 12-09-2023 End: 12-09-2023 Office outpatient visit 25 minutes Deuce Kirkland MD Work Phone: [facility] Comment on above: 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 Elinor Phone Call Provider 1 Madeline Becerra [facility] Start: 11-09-2023 End: 11-09-2023 ambulatory [facility] Start: 11-09-2023 End: 11-09-2023 Encounter for other preprocedural examination [facility] Start: 11-05-2023 End: 11-05-2023 Evaluation and management of inpatient [facility] Start: 10-27-2023 End: 10-27-2023 Evaluation and management of inpatient [facility] MCMAHON [facility] Start: 10-27-2023 End: 10-27-2023 ambulatory [facility] Start: 10-20-2023 End: 10-20-2023 ambulatory [facility] Start: 06-23-2023 End: 06-23-2023 ambulatory [facility] Start: 06-17-2023 End: 06-17-2023 ambulatory [facility] Start: 06-15-2023 End: 06-15-2023 ambulatory MALATHI VIEIRA Facility:[facility] Start: 06-15-2023 End: 06-15-2023 Patient encounter procedure MALATHI VIEIRA [facility] Start: 05-28-2023 End: 05-28-2023 ambulatory Monie Wallace Facility:[facility] Start: 05-28-2023 End: 05-28-2023 ambulatory MD Gypsy Mcmahon Work Phone: [facility] Work Phone: Start: 05-28-2023 End: 05-28-2023 Patient encounter procedure MD Gypsy Mcmahon Work Phone: [facility] [place] Work Phone: Start: 05-25-2023 Non-patient / Non-visit MD Dontae Mcmahon Work Phone: [facility] Work Phone: Start: 05-24-2023 End: 05-24-2023 Patient encounter procedure MD Gypsy Mcmahon Work Phone: [facility] Work Phone: Start: 05-21-2023 End: 05-21-2023 Patient encounter procedure MD Gypsy Mcmahon Work Phone: [facility] Work Phone: Start: 05-06-2023 Non-patient / Non-visit MD Dontae Mcmahon Work Phone: [facility] Work Phone: Start: 05-05-2023 End: 05-05-2023 Emergency department patient visit Marvin Garcia Facility:[facility] Start: 05-05-2023 End: 05-05-2023 Emergency department patient visit MD Jacinto Max Work Phone: [facility]Emergency [facility] Work Phone: Start: 05-01-2023 Non-patient / Non-visit MD Jody Max Work Phone: [facility] Work Phone: Start: 04-15-2023 End: 04-15-2023 Patient encounter procedure MD Jacinto Max Work Phone: [facility] Infectious Disease Work Phone: Start: 04-06-2023 Non-patient / Non-visit MD Jody Max Work Phone: [facility] Work Phone: Start: 03-12-2023 End: 03-12-2023 ambulatory Jacinto Max Other [facility] Other Start: 03-12-2023 Telephone encounter Jacinto [facility] Start: 03-11-2023 End: 03-11-2023 ambulatory Jacinto Max Other [facility] Other Start: 03-11-2023 Telephone encounter Jacinto [facility] Start: 03-02-2023 End: 03-02-2023 ambulatory Gypsy Mcmahon Other [facility] Other Start: 03-02-2023 Telephone encounter Gypsy EUGENE [facility] Start: 02-26-2023 End: 02-26-2023 Patient encounter procedure MD Jacinto Max Work Phone: [facility]- Start: 02-25-2023 End: 02-25-2023 ambulatory Jacinto Max Facility:[facility] Start: 02-25-2023 End: 02-25-2023 ambulatory MD Jacinto Max Work Phone: [facility] Work Phone: Start: 02-25-2023 End: 02-25-2023 Discharged Recurring MD Jacinto Max Work Phone: [facility]-Infusion Therapy - O/P Work Phone: Start: 02-18-2023 End: 02-18-2023 ambulatory Jacinto Max Other [facility] Other Start: 02-18-2023 Office outpatient ne w 45 minutes Jacinto EGUENE [facility] Start: 02-18-2023 End: 02-18-2023 Patient encounter procedure MD Jacinto Max Work Phone: [facility] Work Phone: Start: 02-16-2023 End: 02-16-2023 ambulatory Gypsy Mcmahon Other [facility] Other Start: 02-16-2023 Office outpatient vi sit 15 minutes Gypsy Mcmahon [facility] Start: 02-16-2023 End: 02-16-2023 Patient encounter procedure MD Jacinto Max Work Phone: [facility] Work Phone: Start: 01-29-2023 End: 05-05-2023 ambulatory MALATHI VIEIRA Facility:[facility] Start: 01-29-2023 End: 01-29-2023 Patient encounter procedure MALATHI VIEIRA [facility] Start: 01-29-2023 End: 05-05-2023 Recurring MALATHI VIEIRA [facility] Start: 01-26-2023 End: 01-26-2023 Patient encounter procedure MALATHI VIEIRA [facility] Start: 01-26-2023 End: 01-26-2023 ambulatory MALATHI VIEIRA [facility] [employer] Other Start: 01-26-2023 Telephone encounter Hunter brady [facility] Start: 01-20-2023 End: 01-20-2023 ambulatory Hunter Brown Other [facility] Other Start: 01-20-2023 Telephone encounter Hunter brady [facility] Start: 01-12-2023 End: 01-12-2023 ambulatory Hunter Brown Other [facility] Other Start: 01-12-2023 Office outpatient vi sit 25 minutes Hunter Brown [facility] Start: 01-12-2023 End: 01-12-2023 Patient encounter procedure MD Jacinto Max Work Phone: [facility] Work Phone: Start: 01-11-2023 End: 01-11-2023 ambulatory Gypsy Mcmahon Other [facility] Other Start: 01-11-2023 Telephone encounter Gypsyenedina Mcmahon [facility] Start: 01-05-2023 End: 01-05-2023 ambulatory Gypsy Mcmahon Other [facility] Other Start: 01-05-2023 Telephone encounter Gypsy Mcmahon [facility] Start: 01-05-2023 Transitional care manage srvc 14 day discharge Gypsy Mcmahon [facility] Start: 01-05-2023 End: 01-05-2023 Patient encounter procedure MD Jacinto Max Work Phone: [facility] Work Phone: Start: 12-30-2022 End: 12-30-2022 ambulatory Malathi Velázquez Other [facility] Other Start: 12-30-2022 Telephone encounter Malathi arias [facility] Start: 12-28-2022 End: 12-28-2022 ambulatory Malathi Velázquez Other [facility] Other Start: 12-28-2022 Office outpatient vi sit 15 minutes Malathi Velázquez [facility] Start: 12-28-2022 End: 12-28-2022 Patient encounter procedure MD Jacinto Max Work Phone: [facility] Work Phone: Start: 12-15-2022 End: 12-15-2022 ambulatory Gypsy Mcmahon Other [facility] Other Start: 12-15-2022 Office outpatient vi sit 15 minutes Gypsy Mcmahon [facility] Start: 12-15-2022 Telephone encounter Gypsy Mcmahon [facility] Start: 12-15-2022 End: 12-15-2022 Patient encounter procedure MD Jacinto Max Work Phone: [facility] Work Phone: Start: 10-29-2022 End: 10-29-2022 ambulatory Hunter Brown Facility:[facility] Start: 09-22-2022 End: 09-22-2022 ambulatory MALATHI VIEIRA Facility:[facility] Start: 09-22-2022 End: 09-22-2022 Patient encounter procedure MALATHI GUERRERORY [facility] Start: 09-10-2022 End: 09-10-2022 ambulatory Jose G Ellington Other [facility] Other Start: 09-10-2022 Nursing evaluation o f patient and report Jose G [facility] Start: 09-08-2022 End: 09-08-2022 ambulatory Hunter Brown Other [facility] Other Start: 09-08-2022 Telephone encounter Hunter Palomo [facility]astroenter[facility] Start: 09-01-2022 End: 09-01-2022 ambulatory Gypsy Mcmahon Other [facility] Other Start: 09-01-2022 Office outpatient vi sit 15 minutes Gypsy Mcmahon [facility] Start: 08-27-2022 End: 08-27-2022 ambulatory Gypsy Mcmahon Other [facility] Other Start: 08-27-2022 Telephone encounter Gypsy Mcmahon [facility] Start: 06-09-2022 End: 06-09-2022 Patient encounter procedure Marvin KWON [facility] Start: 05-27-2022 End: 05-28-2022 ambulatory MALATHI VIEIRA Facility:[facility] Start: 05-19-2022 End: 05-19-2022 Patient encounter procedure MALATHI VIEIRA [facility] Start: 05-14-2022 End: 05-14-2022 ambulatory Gypsy Mcmahon Other [facility] Other Start: 05-14-2022 Telephone encounter Gypsy Mcmahon [facility] Start: 05-11-2022 End: 05-12-[address] GYPSY MCMAHON Facility:[facility] Start: 05-01-2022 (Televisit) Televisit Gypsy Evangelista [facility] Start: 05-01-2022 End: 05-01-2022 ambulatory Gypsy Mcmahon Other [facility] Other Start: 05-01-2022 Telephone encounter Gypsy Mcmahon [facility] Start: 04-28-2022 End: 04-29-[address] GYPSY MCMAHON Facility:[facility] Start: 04-24-2022 End: 04-24-2022 ambulatory Hunter Brown Other [facility] Other Start: 04-24-2022 Office outpatient vi sit 15 minutes Hunter Brown [facility] G[facility] Start: 04-16-2022 End: 04-16-2022 ambulatory Gypsy Mcmahon Other [facility] Other Start: 04-16-2022 Telephone encounter Gypsy Mcmahon [facility] Start: 04-14-2022 End: 04-14-[address] GYPSY MCMAHON Facility:[facility] Start: 04-07-2022 End: 04-07-2022 ambulatory Gypsy Mcmahon Other [facility] Other Start: 04-07-2022 Office outpatient vi sit 15 minutes Gypsy Mcmahon [facility] Start: 04-03-2022 End: 04-03-2022 ambulatory Gypsy Mcmahon Other [facility] Other Start: 04-03-2022 Telephone encounter Gypsy Mcmahon [facility] Start: 03-30-2022 End: 03-30-2022 Departed Referred MD Gypsy Mcmahon Work Phone: [facility] [place] Work Phone: Start: 03-30-2022 End: 03-30-2022 ambulatory MD Gypsy Mcmahon Work Phone: [facility] Work Phone: Start: 03-30-2022 Nursing evaluation o f patient and report Gypsy Mcmahon [facility] Start: 03-20-2022 End: 03-21-[address] GYPSY MCMAHON Facility:[facility] Start: 03-19-2022 End: 03-19-2022 ambulatory Hunter Brown Other [facility] Other Start: 03-19-2022 Telephone encounter Hunter Palomo [facility] Gastroenter[facility] Start: 03-11-2022 Registered Recurring MD Gypsy Mcmahon Work Phone: [facility]-Infusion Therapy - O/P Work Phone: Start: 02-23-2022 End: 02-24-[address] GYPSY MCMAHON Facility:[facility] Start: 02-19-2022 End: 02-19-2022 ambulatory Gypsy Mcmahon Other [facility] Other Start: 02-19-2022 Telephone encounter Gypsy Mcmahon [facility] Start: 02-17-2022 End: 02-18-[address] GYPSY MCMAHON Facility:[facility] Start: 02-16-2022 End: 02-16-2022 ambulatory Gypsy Mcmahon Other [facility] Other Start: 02-16-2022 Office outpatient vi sit 15 minutes Gypsy Mcmahon [facility] Start: 02-16-2022 End: 02-16-2022 Departed Referred MD Gypsy Mcmahon Work Phone: [facility] [place] Work Phone: Start: 02-11-2022 End: 02-11-2022 ambulatory Hunter Brown Other [facility] Other Start: 02-11-2022 Office outpatient vi sit 15 minutes Hunter Brown [facility] Start: 02-11-2022 Telephone encounter Hunter brady [facility] Start: 01-26-2022 End: 01-27-[address] GYPSY MCMAHON Facility:[facility] Start: 01-15-2022 End: 01-16-[address] GYPSY MCMAHON Facility:[facility] Start: 01-06-2022 End: 01-06-2022 ambulatory Hunter Brown Other [facility] Other Start: 01-06-2022 Telephone encounter Hunter brady [facility] Start: 01-05-2022 End: 01-06-2022 ambulatory CLAU NASCIMENTO [facility] [employer] Other Start: 01-05-2022 Office outpatient vi sit 25 minutes Hunter Brown [facility] Start: 12-27-2021 End: 12-27-[address] REY MONTGOMERY Facility:[facility] Start: 12-18-2021 End: 12-19-2021 ambulatory CLAU NASCIMENTO Facility:[facility] Start: 12-08-2021 End: 12-09-[address] GYPSY MCMAHON Facility:[facility] Start: 11-18-2021 End: 11-18-2021 ambulatory Hunter Brown Other [facility] Other Start: 11-18-2021 Telephone encounter Hunter brady [facility] Start: 11-17-2021 End: 11-18-[address] GYPSY MCMAHON Facility:[facility] Start: 11-10-2021 End: 11-11-[address] GYPSY MCMAHON Facility:[facility] Start: 11-02-2021 End: 11-04-2021 ambulatory MCCORD Nasreen ARI Facility:[facility] Start: 10-31-2021 End: 11-01-[address] GYPSY MCMAHON Facility:[facility] Start: 10-27-2021 End: 10-28-2021 ambulatory CLAU Shrestha DEACONESTELITA Facility:[facility] Start: 10-16-2021 End: 10-16-[address] REY MONTGOMERY Facility:[facility] Start: 10-16-2021 End: 10-17-[address] GYPSY MCMAHON Facility:[facility] Start: 08-18-2021 End: 08-18-2021 ambulatory Giana Villar Other [facility] Other Start: 08-18-2021 Telephone encounter Giana Villar [facility] Start: 08-12-2021 End: 08-12-[address] GYPSY MCMAHON Facility:[facility] Start: 04-22-2021 End: 04-22-2021 ambulatory Giana Villar Other [facility] Other Start: 04-22-2021 Telephone encounter Giana Hykes [facility] Start: 03-27-2021 End: 03-27-2021 ambulatory Giana Villar Other [facility] Other Start: 03-27-2021 Office outpatient vi sit 25 minutes Giana Hykes [facility] Start: 01-27-2021 End: 01-27-2021 ambulatory Giana Rhoadeskes Other [facility] Other Start: 01-27-2021 Office outpatient vi sit 25 minutes Giana Hykes [facility] Start: 01-27-2021 Telephone encounter Giana Hykes [facility] Procedures Date Procedure Procedure Detail Performing Clinician Start: 11-18-2023 Adult depression scr eening assessment Deuce Kirkland MD Work Phone: Start: 05-28-2023 Computed tomography of abdomen and [...] Treatment Date Care Activity Detail Author Start: 11-18-2024 Adult BMI Screening Adult BMI Screening [facility] Start: 11-17-2024 Depression Screening Depression Screening [facility] Start: 11-17-2024 Tobacco Screening Tobacco Screening [facility] Start: 11-15-2024 Adult BMI Screening Adult BMI Screening [facility] Start: 11-15-2024 Tobacco Screening Tobacco Screening [facility] Start: 06-29-2024 End: 06-29-2024 Patient encounter procedure 06/29/2024 10:20 AM EDT Office Visit [facility] [address] [place] [phone] Deuce Kirkland MD [address], [address] [place] [address] [facility] Start: 12-29-2023 End: 12-29-2023 Patient encounter procedure 12/29/2023 10:00 AM EST Appointment [facility] [address] [facility] [place] [phone] Deuce Kirkland MD [address], [facility] [address] [place] [address] [facility] Start: 12-24-2023 End: 12-24-2023 ABLATION VENOUS RADIOFREQUENCY ABLATION VENOUS RADIOFREQUENCY Venous ulcer of ankle, right ([facility]) Encounter for therapeutic drug monitoring 12/24/2023 2:00 PM EST [facility] Start: 12-24-2023 End: 12-24-2023 Admission to same day surgery center 12/24/2023 2:00 PM EST - 12/24/2023 3:30 PM EST Surgery [facility] - Surgery [address] [place] [address] Deuce Kirkland MD [address] [place] [address] ABLATION VENOUS RADIOFREQUENCY-GREATER SAPHENOUS VEIN [facility] - Surgery Comment on above: ABLATION VENOUS RADIOFREQUENCY-GREATER S APHENOUS VEIN Start: 12-24-2023 End: 12-24-2023 SCLEROTHERAPY LOWER EXTREMITY SCLEROTHERAPY LOWER EXTREMITY Venous ulcer of ankle, right ([facility]) Encounter for therapeutic drug monitoring 12/24/2023 2:00 PM EST [employer] [facility] Start: 12-24-2023 Subsequent hospital visit by physician 12/24/2023 2:00 PM EST Hospital Encounter [facility] - Surgery [address] [place] [address] Deuce Kirkland MD [address], [address] [address] [facility] Start: 12-23-2023 End: 12-23-2023 ambulatory 12/23/2023 3:00 PM EST Support Visit [facility] - Pre Admit [address] [facility] [place] [address] [facility] - Pre Admit Start: 12-22-2023 End: 12-22-2023 Patient encounter procedure 12/22/2023 3:45 PM EST Appointment [facility] [address] [facility] [place] [address] Deuce Kirkland MD [address], [address] [address] [facility] Start: 12-15-2023 End: 12-14-2024 US.doppler Lower extremity vein - right Vas venous duplex lwr single right Vascular Ultrasound Routine Venous ulcer of ankle, right ([facility]) Expected: 12/15/2023, Expires: 12/14/2024 [facility] Work Phone: Comment on above: Expected: 12/15/2023, Expires: Start: 12-14-2023 End: 12-14-2023 Patient encounter procedure 12/14/2023 1:00 PM EST Office Visit [facility] [address] [place] [address] Sunny Ingram, [employer] [address] [place], [place] [id number] Primary osteoarthritis of left hip; History of left hip replacement [facility] Comment on above: Primary osteoarthritis of left hip; History of left hip replacement Start: 12-09-2023 End: 12-08-2024 US.doppler Extremity arteries - bilateral for physiologic artery study Vas art doppler lwr bilat mult lev/PVR Vascular Ultrasound Routine 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) Venous ulcer of ankle, right (CMS-HCC) Critical limb ischemia of both lower extremities with rest pain ([facility]) Expected: 12/09/2023, Expires: 12/08/2024 [facility] Work Phone: Comment on above: Expected: 12/09/2023, Expires: Start: 12-09-2023 End: 12-09-2023 Patient encounter procedure 12/09/2023 10:00 AM EDT Office Visit [facility] [address] [place] [phone] Deuce Kirkland MD [address], [address] [address] [facility] Start: 11-18-2023 End: 11-18-2023 Admission to same day surgery center 11/18/2023 3:30 PM EDT - 11/18/2023 6:00 PM EDT Surgery [facility] - Special Procedures [address] [place] [address] Deuce Kirkland MD [address], [address] [address] ANGIOPLASTY ILIAC-ILIAC SHOCKWAVE INTRAVASCULAR LITHOTRIPSY & STENTING [71920 (CPT )] [facility] Comment on above: ANGIOPLASTY ILIAC-ILIAC SHOCKWAVE INTRAV ASCULAR LITHOTRIPSY & STENTING [21841 (CPT )] Start: 11-18-2023 End: 11-18-2023 Revascularization iliac artery angiop 1st vsl ANGIOPLASTY ILIAC 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 ([facility]) 11/18/2023 3:30 PM EDT [facility] Start: 11-18-2023 Subsequent hospital visit by physician 11/18/2023 3:30 PM EDT Hospital Encounter [facility] Special Procedures [address] [place] [address] Deuce Kirkland MD [address], [address] [address] [facility] Start: 10-10-2023 COVID-19 Vaccine ( season) COVID-19 Vaccine ( season) [facility] Start: 10-10-2023 Influenza vaccination [facility] Start: 03-30-2022 Bacteria identified in Urine by Culture [facility] Start: 11-08-2018 Pneumococcal Vaccine: 65+ Years (2 of 2 - PCV) Pneumococcal Vaccine: 65+ Years (2 of 2 - PCV) [facility] Start: 2001 Fall Risk Screening Fall Risk Screening [facility] Start: 1986 Administration of varicella zoster vaccine Zoster (Shingles) Vaccine (1 of 2) [facility] Start: 09-29-1955 DTaP,Tdap and Td Vaccines (1 - Tdap) DTaP,Tdap and Td Vaccines (1 - Tdap) [facility] Start: 1948 Depression Screening Depression Screening [facility] Start: 1936 Medicare Annual Wellness Visit Medicare Annual Wellness Visit [facility] Bacteria identified in Stool by Culture [facility] Bacteria identified in Urine by Culture [facility] Elastase.pancreatic [Mass/mass] in Stool [facility] Patient referral [facility] Work Phone: [facility] Immunizations Immunization Date Immunization Notes Care Provider Fa cility 02-16-2023 influenza virus vaccine, unspecified formulation [facility] 1 [facility] 02-16-2022 Shingrix 50 MCG/0.5M L; Translations: [Shingrix 50 MCG/0.5ML] Hunter Brown Other [facility] Other 01-15-2022 influenza virus vaccine, unspecified formulation MALATHI DEB [facility] 01-15-2022 SARS-CoV-2 (COVID-19 ) [id number] MALATHI DEB [facility] 01-23-2021 SARS-CoV-2 (COVID-19 ) mRNA BNT-162b2 vax MALATHI DEB [facility] 01-06-2021 influenza virus vaccine, unspecified formulation MALATHI DEB [facility] 03-27-2020 SARS-CoV-2 (COVID-19 ) mRNA BNT-162b2 vax MALATHI DEB [facility] 03-04-2020 SARS-CoV-2 (COVID-19 ) mRNA [id number] vax MALATHI DEB [facility] 12-06-2019 influenza virus vaccine, unspecified formulation MALATHI DEB [facility] 12-14-2018 influenza virus vaccine, unspecified formulation MALATHI DEB [facility] 02-02-2018 influenza virus vaccine, unspecified formulation MALATHI DEB [facility] 11-08-2017 pneumococcal polysaccharide vaccine, 23 valent MALATHI DEB [facility] 11-02-2017 influenza virus vaccine, unspecified formulation MALATHI DEB [facility] 11-02-2017 influenza, injectabl e, quadrivalent, preservative free Sunny Ingram [employer] Work Phone: [facility] 12-09-2016 influenza virus vaccine, unspecified formulation MALATHI DEB [facility] 12-09-2016 influenza, injectabl e, quadrivalent, preservative free Sunny Ingram [employer] Work Phone: [facility] 12-02-2016 influenza virus vaccine, unspecified formulation MALATHI DEB [facility] 12-17-2015 influenza virus vaccine, unspecified formulation MALATHI DEB [facility] 10-10-2015 influenza virus vaccine, unspecified formulation MALATHI DEB [facility] 10-10-2015 influenza, injectabl e, quadrivalent, preservative free Sunny Ingram [employer] Work Phone: [facility] 11-19-2014 influenza virus vaccine, unspecified formulation MALATHI DEB [facility] 11-09-2014 pneumococcal polysaccharide vaccine, 23 valent MALATHI DEB [facility] NEGATED: Highlighted row has not occurred!01-26-2023 influenza virus vaccine, unspecified formulation MALATHI DEB [facility] Payers Date Payer Category Payer Self-pay [id number] [facility]-2 [id number] 2019 [facility] er [id number] 315 2019 Blue Cross Blue Shie ld Managed Care - Other [place] [id number] 2019 Unknown [facility] HMO/PPO/TRUST [id number] 2019-Present [phone] [address] [place] [address] [id number] [id number] 2001 Medicare [id number] 1.13.42 [id number] 1959 Blue Cross Blue Shield [id number] 2.16.840.1.058814.19 1959 Medicare [id number] 2.16.840.1.825342.19 1936 Unknown [id number] 2.16.840.1.256750.3.57 9.2.593 1936 Unknown [id number] 2.16.840.1.501952.3.57 9.2.593 1936 Unknown [id number] 2.16.840.1.019593.3.57 9.2.593 1936 Unknown [id number] 2.16.840.1.235657.3.57 9.2.593 1936 Unknown [id number] 2.16.840.1.376006.3.57 9.2.593 1936 Unknown [id number] 2.16.840.1.470604.3.57 9.2.593 1936 Unknown [id number] 2.16.840.1.598164.3.57 9.2.593 1936 Unknown [id number] 2.16.840.1.696747.3.57 9.2.593 1936 Unknown [id number] 2.840.1.813334.3.57 9.2.593 1936 Unknown [id number] 2.16840.1.305195.3.57 9.2.593 1936 Unknown [id number] 2.16.840.1.539138.3.57 9.2.593 1936 Unknown [id number] 2.16840.1.569571.3.57 9.2.593 1936 Unknown [id number] 2.16.840.1.740468.3.57 9.2.593 1936 Unknown [id number] 2.16.840.1.310513.3.57 9.2.593 1936 Unknown [id number] 2.16.840.1.558353.3.57 9.2.593 1936 Unknown [id number] 2.16.840.1.387878.3.57 9.2.593 1936 Unknown [id number] 2.16.840.1.833891.3.57 9.2.593 1936 Unknown [id number] 2.16.840.1.979442.3.57 9.2.593 1936 Unknown [id number] 2.16.840.1.038065.3.57 9.2.593 1936 Unknown [id number] 2.16.840.1.008765.3.57 9.2.593 1936 Unknown [id number] 2.16.840.1.585370.3.57 9.2.593 1936 Unknown [id number] 2.16840.1.287249.3.57 9.2.1286 1936 Unknown [id number] 2.840.1.390288.3.57 9.2.727 1936 Unknown [id number] 2.840.1.302371.3.57 9.2.727 1936 Unknown [id number] 2.840.1.934666.3.57 9.2.727 1936 Unknown [id number] 2.840.1.428039.3.57 9.2.727 1936 Unknown [id number] 2.840.1.006053.3.57 9.2.1286 1936 Unknown [id number] 2.840.1.945366.3.57 9.2.1286 1936 Unknown [id number] 2.840.1.480954.3.57 9.2.1286 1936 Unknown [id number] 2.840.1.479112.3.57 9.2.1286 1936 Unknown [id number] 2.16840.1.554483.3.57 9.2.1286 1936 Unknown [id number] 2.16840.1.356335.3.57 9.2.1286 1936 Unknown [id number] 2.16840.1.490989.3.57 9.2.1286 1936 Unknown [id number] 2.16.840.1.036353.3.57 9.2.1259 1936 Unknown [id number] 2.16.840.1.132882.3.57 9.2.1259 Unknown [id number] 2.16.840.1.437333.3.57 9.2.531 Unknown [id number] 2.16.840.1.006077.3.57 9.2.531 Social History Date Type Detail Facility Unknown if ever smoked [employer] Other Start: 03-21-2020 End: 11-16-2023 Sex Assigned At [facility] Start: 1935 Sex Assigned At Female [facility] Start: 05-19-2022 End: 10-27-2023 Tobacco smoking status Ex-smoker (finding) [facility] Start: 09-22-2022 Tobacco smoking status Never [facility] Start: 07-18-2022 End: 05-05-2023 Tobacco smoking status NHIS Never smoked tobacco (finding) [facility] History of tobacco use Current smoker [facility] History of tobacco use Cigarette Smoker P [facility] Start: 07-18-2022 End: 10-27-2023 Tobacco use and exposure Smokeless tobacco non-user [facility] Start: 11-16-2023 End: 11-18-2023 Alcoholic beverage intake Current drinker of alcohol (finding) [facility] Start: 03-21-2020 End: 11-16-2023 Alcoholic beverage intake [facility] Start: 10-27-2023 Tobacco Comment QUIT IN 1989 [facility] Start: 10-27-2023 Alcohol Comment OCC [facility] Start: 1935 Sex assigned at Not on file [facility] Has the [employer], or water [employer] threatened to shut off services in your home in past 12Mo [facility] How often to you hav e a drink containing alcohol? Monthly or less [facility] How many standard drinks containing alcohol do you have on a typical day? 1 or 2 [facility] How often do you hav e 6 or more drinks on 1 occasion? Never [facility] Start: 09-13-2014 Sex Female (finding) [facility] Start: 07-18-2022 Alcohol Comment occasionally a glass of wine [facility] Functional Status Date Assessment Result Facility 01-26-2023 Functional Status N/A [facility] 09-22-2022 Functional Status N/A [facility] 06-09-2022 Functional Status N/A [facility] 05-19-2022 Functional Status N/A [facility] Clinical Notes 01-27-2021 to 12-09-2023 Assessment & Plan Note - Deuce Kirkland MD - 12/09/2023 10:39 AM EDTAssessment & Plan Note - Deuce Kirkland MD - 12/09/2023 10:39 AM EDTMcolumba Kirkland MD - 12/09/2023 10:00 AM EDT Note Date & Type Note Facility 12-09-2023 Evaluation + Plan note Associated Problem(s): 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 I discussed with her that we will get a PVR and she may need bilateral iliofemoral endarterectomy and bilateral lower extremity angiogram intervention is a hybrid procedure to improve the blood flow to her legs. [facility] 12-09-2023 Evaluation + Plan note Associated Problem(s): Venous ulcer of ankle, right (CMS-HCC) Discussed with her doing right GSV ablation and ultrasound-guided injection sclerotherapy For right lower extremity venous ulcer and significant GSV reflux and varicose veins. We will also do Unna boot and wound care. 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 I discussed with her that we will get a PVR and she may need bilateral iliofemoral endarterectomy and bilateral lower extremity angiogram intervention is a hybrid procedure to improve the blood flow to her legs. Associated Problem(s): Venous ulcer of ankle, right (CMS-HCC) Discussed with her doing right GSV ablation and ultrasound-guided injection sclerotherapy For right lower extremity venous ulcer and significant GSV reflux and varicose veins. We will also do Unna boot and wound care. documented in this encounter [facility] 12-09-2023 History of Presen t illness Narrative Images from the original note were not included. To: GYPSY MCMAHON MD HPI: Vincent Hsu is a 88 y.o. female with Bilateral lower extremity multilevel occlusive diseaseAnd venous ulcer in the right lower extremity extremity. Venous ulcer is nonhealing and causing a lot of pain. We did an angiogram of the right lower extremity with common iliac angiogram and shockwave balloon angioplasty. We will get updated PVR to see the blood flow to her leg. In regard to her venous ulcer she needs GSV ablation and injection sclerotherapy and Unna boot and wound care. Review of Systems: Review of Systems Constitutional: Negative. HENT: Negative. Respiratory: Negative. Cardiovascular: Negative. Gastrointestinal: Negative. Endocrine: Negative. Genitourinary: Negative. Musculoskeletal: Negative. Skin: Negative. Neurological: Negative. Hematological: Negative. Medications: Current Outpatient Medications on File Prior to Visit Medication Sig Dispense Refill acetaminophen (TYLENOL EXTRA STRENGTH) 500 mg tablet Take 2 tablets (1,000 mg total) by mouth every 6 (six) hours as needed for pain. 30 tablet 0 acetaminophen-codeine (TYLENOL with CODEINE #4) 300-60 mg per tablet Take 1 tablet by mouth every 6 (six) hours as needed for pain Indications: pain. acidophilus-pectin, citrus 25 million cell -100 mg tablet Take 1 tablet by mouth daily with breakfast. ascorbic acid, vitamin C, (VITAMIN C) 250 mg tablet Take 1 tablet (250 mg total) by mouth in the morning and 1 tablet (250 mg total) before bedtime. aspirin 81 mg Take 1 tablet (81 mg total) by mouth in the morning for 30 days. 30 tablet 0 bismuth subsalicylate (PEPTO-BISMOL ORAL) daily as needed. TAKES 3 TABS MORNING AND 3 TABS NIGHTLY budesonide EC (ENTOCORT EC) 3 mg 24 hr capsule Take 1 capsule (3 mg total) by mouth in the morning. cholecalciferol, vitamin D3, (D3-50 CHOLECALCIFEROL ORAL) Take 1 tablet by mouth in the morning. clopidogreL (PLAVIX) 75 mg tablet Take 1 tablet (75 mg total) by mouth in the morning. Indications: treatment to prevent a heart attack. estradioL (ESTRACE) 0.01 % (0.1 mg/gram) vaginal cream as needed. H-CHLOR 12 0.125 % solution external solution APPLY TO RIGHT LOWER LEG WOUND DAILY loperamide (IMODIUM A-D) 2 mg tablet Take 2 tablets (4 mg total) by mouth as needed. melatonin 10 mg tablet Take 1 tablet by mouth nightly. mupirocin (BACTROBAN) 2 % ointment APPLY TO LEG WOUND DAILY nebivoloL (BYSTOLIC) 5 mg tablet Take 1 tablet (5 mg total) by mouth in the morning. pantoprazole (PROTONIX) 40 mg EC tablet Take 20 mg by mouth in the morning. Indications: gastroesophageal reflux disease. simvastatin (ZOCOR) 40 mg tablet Take 1 tablet (40 mg total) by mouth in the morning. Indications: excessive fat in the blood. spironolactone (ALDACTONE) 25 mg tablet Take 2 tablets (50 mg total) by mouth in the morning. Indications: high blood pressure. vancomycin (VANCOCIN) 125 mg capsule Take 1 capsule (125 mg total) by mouth in the morning. PREVENT UTI. zinc 50 mg tablet tablet Take 1 tablet (50 mg total) by mouth in the morning. naloxone (NARCAN) 4 mg/actuation spray,non-aerosol nasal spray Administer 1 spray (4 mg total) into alternating nostrils as needed for opioid reversal for up to 2 doses. (Patient not taking: Reported on 12/09/2023) 2 each 0 oxyCODONE (ROXICODONE) 5 mg immediate release tablet Take 1 tablet (5 mg total) by mouth every 6 (six) hours as needed for pain for up to 4 doses. Max Daily Amount: 20 mg (Patient not taking: Reported on 12/09/2023) 4 tablet 0 No current facility-administered medications on file prior to visit. Past Medical History: Past Medical History: Diagnosis Date Anesthesia complication 2018 HAD HALLUCINATIONS FOR A FEW DAYS AFTER HIP SURGERY Arrhythmia Arthritis C. difficile diarrhea 12/2022 HOSPITALIZED, 01/2023 Cataract Cholecystitis Chronic kidney disease Colitis Coronary artery disease Dental disease UPPER AND LOWER DENTURE DIAZ (dyspnea on exertion) Fractures 2018 LEFT HIP GERD (gastroesophageal reflux disease) HL (hearing loss) Hyperlipidemia Hypertension PAD (peripheral artery disease) ([facility]) Peptic ulceration BLEEDING ULCER ADMITTED 2018 X13 DAYS TATYANA Rash Skin cancer REMOVED Sleep apnea no cpap Thin skin Urinary tract infection CHRONIC, SEES ID EVERY 3 MONTHS Visual impairment Wound of ankle RIGHT SINCE 07/2023 Past Surgical History: Past Surgical History: Procedure Laterality Date ABDOMINAL SURGERY ANGIOPLASTY ILIAC-ILIAC SHOCKWAVE INTRAVASCULAR LITHOTRIPSY Right 11/18/2023 Performed by Deuce Kirkland MD at [facility] SPECIAL PROC ARTHROSCOPY SHOULDER W/ OPEN ROTATOR CUFF REPAIR Left 2011 CARDIAC SURGERY CATARACT EXTRACTION CHOLECYSTECTOMY N/A 2008 CORONARY ARTERY BYPASS GRAFT 1998 X5 EYE SURGERY HERNIA REPAIR N/A 03/2012 HIP FRACTURE SURGERY Left 05/2017 HYSTERECTOMY N/A JOINT REPLACEMENT lower ext angiogram Bilateral 01/07/2022 Performed by Taryn Belle MD at [facility] CARDIAC CATH LABS TOTAL HIP ARTHROPLASTY Left 2019 VASCULAR SURGERY angiogram Social and Family History: Social History Socioeconomic History Marital status: Spouse name: Not on file Number of children: Not on file Years of education: Not on file Highest education level: Not on file Occupational History Not on file Tobacco Use Smoking status: Former Types: Cigarettes Smokeless tobacco: Never Tobacco comments: QUIT IN 1989 Vaping Use Vaping status: Never Used Substance and Sexual Activity Alcohol use: Yes Alcohol/week: 1.0 standard drink of alcohol Types: 1 Glasses of wine per week Comment: OCC Drug use: Never Sexual activity: Defer Other Topics Concern Not on file Social History Narrative Not on file Social Drivers of Health Financial Resource Strain: Low Risk (11/18/2023) Overall Financial Resource Strain (CARDIA) Difficulty of Paying Living Expenses: Not hard at all Food Insecurity: No Food Insecurity (12/09/2023) Hunger Screening Food Insecurity - Worry: Never True Food Insecurity - Inability: Never True Transportation Needs: No Transportation Needs (11/18/2023) PRAPARE - Transportation Lack of Transportation (Medical): No Lack of Transportation (Non-Medical): No Physical Activity: Not on file Stress: Not on file Social Connections: Not on file Interpersonal Safety: Not At Risk (11/18/2023) Humiliation, Afraid, Rape, and Kick questionnaire Fear of Current or Ex-Partner: No Emotionally Abused: No Physically Abused: No Sexually Abused: No Housing Instability: Low Risk (11/18/2023) Housing Instability Housing Instability: No Family History Problem Relation Age of Onset Anesthesia problems Neg Hx Recent Labs: Recent and relative labs were reviewed and interpreted and contributed to the assessment and plan below. Vitals: BP 172/72 (BP Site: Left Arm, BP Postition: Sitting, BP CUFF SIZE: M (9-13 inches)) Pulse 78 Temp 36.3 C (97.3 F) (Temporal) Ht 177.8 cm (5' 10 ) Wt 62.1 kg (137 lb) SpO2 98% BMI 19.66 kg/m Body mass index is 19.66 kg/m . Physical Exam: Physical Exam Constitutional: Appearance: Normal appearance. HENT: Head: Normocephalic and atraumatic. Mouth/Throat: Mouth: Mucous membranes are moist. Eyes: Extraocular Movements: Extraocular movements intact. Pupils: Pupils are equal, round, and reactive to light. Cardiovascular: Rate and Rhythm: Normal rate and regular rhythm. Pulmonary: Effort: Pulmonary effort is normal. Breath sounds: Normal breath sounds. Abdominal: General: Abdomen is flat. Bowel sounds are normal. Palpations: Abdomen is soft. Musculoskeletal: General: Normal range of motion. Cervical back: Normal range of motion. Skin: General: Skin is warm and dry. Comments: ulcer Neurological: General: No focal deficit present. Mental Status: She is alert and oriented to person, place, and time. Mental status is at baseline. Psychiatric: Mood and Affect: Mood normal. Behavior: Behavior normal. Thought Content: Thought content normal. Judgment: Judgment normal. 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 I discussed with her that we will get a PVR and she may need bilateral iliofemoral endarterectomy and bilateral lower extremity angiogram intervention is a hybrid procedure to improve the blood flow to her legs. Critical limb ischemia of both lower extremities with rest pain (CMS-HCC) Venous ulcer of ankle, right (CMS-HCC) Current Assessment & Plan Discussed with her doing right GSV ablation and ultrasound-guided injection sclerotherapy For right lower extremity venous ulcer and significant GSV reflux and varicose veins Vincent was seen today for acute deep vein thrombosis of left popliteal vein (cms-hcc) and critical limb ischemia of right lower extremity with gangre. 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 While intending to generate a timely document that accurately reflects the content of the visit, no guarantee can be provided that every grammatical or spelling mistake has been or will be identified or corrected. Thank you for your understanding. documented in this encounter [facility] 11-16-2023 Instructions Formatting of th is note might be different from the original. Your surgery/procedure is scheduled at [facility] on 11/18/23 at 1500 Arrival Time 1300 [facility] Address: [address] [place] [address] in [address] located on [facility]. Report to the Entrance B. Check in at the information desk the surgery. The waiting room located on the second floor. If you have any questions prior to surgery, please call Pre-Admission Clinic at [phone] between 7:30 am and 4:30 pm Wednesday through Wednesday. If you have questions the morning of surgery, please call the Pre-op Department at [phone]. Notify your SURGEON if you develop any illness such as a cold, cough, fever, sore throat, vomiting or are hospitalized between now and your surgery. Medication Instructions (Do not stop your medications without consulting the prescribing physician). Take the following medications the morning of surgery with a sip of water: PER DR KIRKLAND Diabetic or Weight loss medications: HOLD N/A LAST DOSE N/A Take inhalers as prescribed the morning of surgery. Due to the risk associated with these medications. If these medications are not held per instruction below, your surgery is at an increased risk for cancellation. SGLT2 Medications- Hold 3 days prior to surgery: Jardiance, Empagliflozin, Farxiga, Dapagliflozin, Invokana, Canagliflozin GLP-1 Medications (Injection or Pill)- If taken daily hold day of surgery. If taken weekly, hold 1 week prior to surgery: Adlyxin, Byetta, Bydureon, Ozempic, Rybelsus,Trulicity, Victoza, Wegovy, Lixisenatide, Exenatide, Semaglutide, Dulaglutide, Liraglutide GIP/GLP-1(Injection or Pill)- If taken daily hold day of surgery. If taken weekly, hold 1 week prior to surgery: Jolie . Blood thinners: Please contact your prescribing physician regarding a stop/hold date for these medications. Medications such as Coumadin, Heparin, Aspirin, Plavix, Eliquis, Pradaxa Diabetics: If you take insulin, contact your prescribing doctor for instructions on how to manage this the night before and the morning of surgery. Non-steriodal Anti-Inflammatory Drugs (NSAIDS)- Hold 3 days prior to surgery unless otherwise directed by your surgeon. Vitamins/Herbal Products: You may continue to take your prescribed vitamins such as potassium, iron, vitamin B, vitamin C, or multivitamin unless specifically instructed by your surgeon to hold. STOP taking all herbal products/teas one week prior to your surgery. Marijuana: Stop marijuana 72 hours prior to surgery, stop CBD oil 48 hours prior to surgery. If you have been given bowel prep instructions by your surgeon, please call the surgeon's office with any questions about these instructions. What do I do the day of Surgery? Age 2 through adult - Stop all solids by midnight, You may have clear liquids up to 2 hours before surgery, unless otherwise instructed by your surgeon. Clear liquids are: water, sports drinks such as Gatorade or G2, or apple juice. You may NOT have: tube feedings, dairy products, alcoholic beverages, orange juice, or any liquids with solids or pulp in it. If applicable, shower again with CHG soap the morning of your surgery. If you received a green plastic bracelet, bring it with you the day of surgery and your nurse will put it on you. In order to help prevent infection post-operatively, you may be asked to use a CHG mouthwash when you arrive to the Pre-op area. Your nurse will provide instruction the morning of. What do I need to do to prepare for surgery? If you will be going home the same day as your surgery, arrange for an adult over [address] Riding in a bus or taxi by yourself is not permitted. You should not smoke or drink alcohol 24 hours before your surgery. Alcohol thins the blood and may cause bleeding problems during surgery. Smoking increases the risk of breathing problems after surgery. Do not use lotions, creams, powders, perfume, make up, cologne or after-shaves day of surgery. Remove ALL jewelry including wedding rings, body piercings (including dermal piercings ,hair extensions that contain metal, nail [place], make-up, and contact lens. You may brush your teeth the morning of surgery, but do not swallow the water. Wear your dentures and partial plates to the hospital (no adhesive). Shower the night the before. If applicable, use the CHG (chlorhexidine gluconate) soap or wipes What should I bring to the hospital? If you received a green plastic bracelet, bring it with you the day of surgery and your nurse will put it on you. Eyeglass or contact lens case If you will be spending the night, please bring personal care items and leave them in the car until you are taken to your room after surgery. Leave ALL valuables at home. If any of these instructions conflict with those you received from the surgeon, please seek clarification from your surgeon's office. DEEP BREATHING EXERCISES This exercise helps promote good air exchange and helps to prevent pneumonia after surgery. Breathe in slowly and deeply through the nose. Hold your breath for a few seconds and then exhale slowly through the mouth. Repeat this three times and then cough.Coughing helps to clear your lungs. If you have had a surgery with an incision into your abdomen or chest, press gently against your incision with a pillow or a folded blanket when you cough. Please be aware - it may not be denney to cough following some types of surgeries involving the eyes, ears, sinuses and throat. Always follow your doctor's instructions. LEG EXERCISE These exercises help promote good circulation and help to prevent blood clots after surgery. Point your toes to the ceiling and then point them to the wall. Do this slowly about 15-20 times. You may also move your feet in circles. Do the exercise that is most comfortable for you. If you have had surgery involving your shoulder or arm, we recommend you move your fingers. PRACTICING We ask that you begin practicing these exercises before your surgery. After surgery try to do both exercises at least every 2 hours during the day and early evening. SURGICAL SITE INFECTION PREVENTION What is a Surgical Site Infection? Infection can happen to the area of the body where surgery is done. This is called a surgical site infection (SSI). A SSI does not happen very often. Can SSIs be treated? Antibiotics are used to treat SSI. Some patients may need another surgery to treat the infection. The doctor will discuss treatment options with you. What are some of the things that hospitals are doing to prevent SSIs? Soap and water or alcohol hand rub are used before and after caring for each patient. Special soap is used to clean surgery workers hands and arms just before the surgery. Masks, gowns, gloves and hair covers are worn during the surgery to keep the area clean. Hair in the surgery area may be removed with clippers (not razors). A special soap that kills germs is used to clean the skin at the surgery site. Antibiotics may be given before the surgery starts. What can you do to prevent SSIs? Before surgery: You may be asked to shower or bathe with a special soap that kills germs the night before and the day of surgery. Use the soap as you were told. If you smoke, stop or cut down. Ask your doctor about ways to quit. Do not shave near where you will have surgery. Shaving can irritate the skin and make it easier to get and infection. After surgery: Be sure that the doctors and nurses clean their hands before and after touching you. Be sure your family and friends clean their hands before and after visiting you. Do not be afraid to remind them. * Care for your wound at home as told by your doctor or nurse * Call your doctor right away if you have fever, redness, increased pain, or drainage at the surgery site. Further questions? Contact the doctor, nurse or the Infection Prevention and Control department if you have any questions. PATIENT RIGHTS AND RESPONSIBILITIES As a patient at [facility], you have the right to: Receive medical care and be informed of who is taking care of you Be treated with dignity and respect Have a family member/independent sales representative of choice and your physician notified of your admission Receive information and actively participate in decisions about your care and treatment Refuse care, treatment and services Decide who may provide your support and speak for you Access restoration and spiritual services Participate in ethical issues and questions about your care Receive private and confidential care Have appropriate assessment and management of your pain Know guest visitation restrictions or limitations Have an advance directive Access protective services Consent or refuse to participate in research studies or production or recordings, films or other images Have resolution of your complaints Receive information of hospital charges and payment methods Patient/patient independent sales representative responsibilities are to: Provide information about health status to facilitate care, treatment and services Follow the treatment, plan, keep appointments and speak up when you do not understand the plan Respect the rights of other patients and healthcare personnel Follow organizational rules and regulations that support quality care and a safe environment Fulfill financial obligations as promptly as possible [facility] 11-16-2023 Miscellaneous Notes CARDIAC CLEARANCE NOTED INTERMEDIATE NON-PROHIBITIVE RISK FOR CARDIOVASCULAR COMPLICATIONS . NOTE FORM KYREE FLETCHER NP 11/10/23 FOUND IN MEDIA Your surgery/procedure is scheduled at [facility] on 11/18/23 at 1500 Arrival Time 1300 [facility] Address: [address] [place] [address]. [place] [address] [address] located on [facility]. Report to the Entrance B. Check in at the information desk the surgery. The waiting room located on the second floor. If you have any questions prior to surgery, please call Pre-Admission Clinic at [phone] between 7:30 am and 4:30 pm Wednesday through Wednesday. If you have questions the morning of surgery, please call the Pre-op Department at [phone]. Notify your SURGEON if you develop any illness such as a cold, cough, fever, sore throat, vomiting or are hospitalized between now and your surgery. Medication Instructions (Do not stop your medications without consulting the prescribing physician). Take the following medications the morning of surgery with a sip of water: PER DR KIRKLAND Diabetic or Weight loss medications: HOLD N/A LAST DOSE N/A Take inhalers as prescribed the morning of surgery. Due to the risk associated with these medications. If these medications are not held per instruction below, your surgery is at an increased risk for cancellation. SGLT2 Medications- Hold 3 days prior to surgery: Jardiance, Empagliflozin, Farxiga, Dapagliflozin, Invokana, Canagliflozin GLP-1 Medications (Injection or Pill)- If taken daily hold day of surgery. If taken weekly, hold 1 week prior to surgery: Adlyxin, Byetta, Bydureon, Ozempic, Rybelsus,Trulicity, Victoza, Wegovy, Lixisenatide, Exenatide, Semaglutide, Dulaglutide, Liraglutide GIP/GLP-1(Injection or Pill)- If taken daily hold day of surgery. If taken weekly, hold 1 week prior to surgery: [place] . Blood thinners: Please contact your prescribing physician regarding a stop/hold date for these medications. Medications such as Coumadin, Heparin, Aspirin, Plavix, Eliquis, Pradaxa Diabetics: If you take insulin, contact your prescribing doctor for instructions on how to manage this the night before and the morning of surgery. Non-steriodal Anti-Inflammatory Drugs (NSAIDS)- Hold 3 days prior to surgery unless otherwise directed by your surgeon. Vitamins/Herbal Products: You may continue to take your prescribed vitamins such as potassium, iron, vitamin B, vitamin C, or multivitamin unless specifically instructed by your surgeon to hold. STOP taking all herbal products/teas one week prior to your surgery. Marijuana: Stop marijuana 72 hours prior to surgery, stop CBD oil 48 hours prior to surgery. If you have been given bowel prep instructions by your surgeon, please call the surgeon's office with any questions about these instructions. What do I do the day of Surgery? Age 2 through adult - Stop all solids by midnight, You may have clear liquids up to 2 hours before surgery, unless otherwise instructed by your surgeon. Clear liquids are: water, sports drinks such as Gatorade or G2, or apple juice. You may NOT have: tube feedings, dairy products, alcoholic beverages, orange juice, or any liquids with solids or pulp in it. If applicable, shower again with CHG soap the morning of your surgery. If you received a green plastic bracelet, bring it with you the day of surgery and your nurse will put it on you. In order to help prevent infection post-operatively, you may be asked to use a CHG mouthwash when you arrive to the Pre-op area. Your nurse will provide instruction the morning of. What do I need to do to prepare for surgery? If you will be going home the same day as your surgery, arrange for an adult over [address] Riding in a bus or taxi by yourself is not permitted. You should not smoke or drink alcohol 24 hours before your surgery. Alcohol thins the blood and may cause bleeding problems during surgery. Smoking increases the risk of breathing problems after surgery. Do not use lotions, creams, powders, perfume, make up, cologne or after-shaves day of surgery. Remove ALL jewelry including wedding rings, body piercings (including dermal piercings ,hair extensions that contain metal, nail [place], make-up, and contact lens. You may brush your teeth the morning of surgery, but do not swallow the water. Wear your dentures and partial plates to the hospital (no adhesive). Shower the night the before. If applicable, use the CHG (chlorhexidine gluconate) soap or wipes What should I bring to the hospital? If you received a green plastic bracelet, bring it with you the day of surgery and your nurse will put it on you. Eyeglass or contact lens case If you will be spending the night, please bring personal care items and leave them in the car until you are taken to your room after surgery. Leave ALL valuables at home. If any of these instructions conflict with those you received from the surgeon, please seek clarification from your surgeon's office. DEEP BREATHING EXERCISES This exercise helps promote good air exchange and helps to prevent pneumonia after surgery. Breathe in slowly and deeply through the nose. Hold your breath for a few seconds and then exhale slowly through the mouth. Repeat this three times and then cough.Coughing helps to clear your lungs. If you have had a surgery with an incision into your abdomen or chest, press gently against your incision with a pillow or a folded blanket when you cough. Please be aware - it may not be denney to cough following some types of surgeries involving the eyes, ears, sinuses and throat. Always follow your doctor's instructions. LEG EXERCISE These exercises help promote good circulation and help to prevent blood clots after surgery. Point your toes to the ceiling and then point them to the wall. Do this slowly about 15-20 times. You may also move your feet in circles. Do the exercise that is most comfortable for you. If you have had surgery involving your shoulder or arm, we recommend you move your fingers. PRACTICING We ask that you begin practicing these exercises before your surgery. After surgery try to do both exercises at least every 2 hours during the day and early evening. SURGICAL SITE INFECTION PREVENTION What is a Surgical Site Infection? Infection can happen to the area of the body where surgery is done. This is called a surgical site infection (SSI). A SSI does not happen very often. Can SSIs be treated? Antibiotics are used to treat SSI. Some patients may need another surgery to treat the infection. The doctor will discuss treatment options with you. What are some of the things that hospitals are doing to prevent SSIs? Soap and water or alcohol hand rub are used before and after caring for each patient. Special soap is used to clean surgery workers hands and arms just before the surgery. Masks, gowns, gloves and hair covers are worn during the surgery to keep the area clean. Hair in the surgery area may be removed with clippers (not razors). A special soap that kills germs is used to clean the skin at the surgery site. Antibiotics may be given before the surgery starts. What can you do to prevent SSIs? Before surgery: You may be asked to shower or bathe with a special soap that kills germs the night before and the day of surgery. Use the soap as you were told. If you smoke, stop or cut down. Ask your doctor about ways to quit. Do not shave near where you will have surgery. Shaving can irritate the skin and make it easier to get and infection. After surgery: Be sure that the doctors and nurses clean their hands before and after touching you. Be sure your family and friends clean their hands before and after visiting you. Do not be afraid to remind them. * Care for your wound at home as told by your doctor or nurse * Call your doctor right away if you have fever, redness, increased pain, or drainage at the surgery site. Further questions? Contact the doctor, nurse or the Infection Prevention and Control department if you have any questions. PATIENT RIGHTS AND RESPONSIBILITIES As a patient at [facility], you have the right to: Receive medical care and be informed of who is taking care of you Be treated with dignity and respect Have a family member/independent sales representative of choice and your physician notified of your admission Receive information and actively participate in decisions about your care and treatment Refuse care, treatment and services Decide who may provide your support and speak for you Access restoration and spiritual services Participate in ethical issues and questions about your care Receive private and confidential care Have appropriate assessment and management of your pain Know guest visitation restrictions or limitations Have an advance directive Access protective services Consent or refuse to participate in research studies or production or recordings, films or other images Have resolution of your complaints Receive information of hospital charges and payment methods Patient/patient independent sales representative responsibilities are to: Provide information about health status to facilitate care, treatment and services Follow the treatment, plan, keep appointments and speak up when you do not understand the plan Respect the rights of other patients and healthcare personnel Follow organizational rules and regulations that support quality care and a safe environment Fulfill financial obligations as promptly as possible documented in this encounter [facility] 11-16-2023 Nurse Note CARDIAC CLEARANCE NOTED INTERMEDIATE NON-PROHIBITIVE RISK FOR CARDIOVASCULAR COMPLICATIONS . NOTE FORM KYREE FLETCHER NP 11/10/23 FOUND IN MEDIA [facility] [employer] [employer] 11-09-2023 Note Pt here for a one ye ar follow up. Pt denies sob, chest pain, palpatations. Review of Systems Cardiovascular: Positive for leg swelling. Gastrointestinal: Positive for diarrhea. All other systems reviewed and are negative. [facility] 11-09-2023 Note Cardiovascular Medic [facility] SUBJECTIVE Chief Complaint Patient presents with Pre-op Exam Hypertension Coronary Artery Disease Vincent Hsu is a 88 y.o. female here [...] 14.7 % monocy (more content not included)... 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 Preventative measures were discussed. Vitamin C [id number] recommended as well as topical Thera workx [...] n due to immunosuppression (ICD-10 - Z91.89) [facility] Other 01-09-2024 Evaluation note* Encounter Date Diagnosis [...] pain. Feb, Pain, unspecified (ICD-10 - R52) [facility] Other 12-19-2023 Hospital Discharge instructions Patient Education 01/26/2023 16:05:17 Urinary Tract Infection, Adult, [id number]-[id number] Urinary Tract Infection, Adult A urinary tract [...] Follow these instructions at home: Medicines Take zkto-hth-hafhmen and prescription medicines only as told by [...] provider. Document Revised: 09/06/2020 Document Reviewed: 09/06/2020 [employer] Patient Education 2022 [employer]. Follow Up Care 06/09/2022 14:50:19 With:MALATHI VIEIRA PA-C, URL Address: [facility] [place] [address] [phone] When: Unknown Comments:f/u in [place] [facility] 12-13-2023 Evaluation note* Encounter Date Diagnosis Assessment Notes Treatment Notes Treatment Clinical Notes Jan, Diarrhea (ICD-10 - R19.7) [facility] Other 12-05-2023 Evaluation note* Encounter Date Diagnosis [...] a day, we will re-test for C-diff [facility] Other 11-28-2023 Evaluation note* Encounter Date Diagnosis Assessment Notes Treatment Notes Treatment Clinical Notes Dec, Clostridium difficile colitis (ICD-10 - A04.72) Finish meds as prescribed. (cipro, Flagyl) Followup w Dr. Brown as scheduled. Understands the c diff could recur. Followup as needed Discussed good nutrition and healthy diet. [facility] Other 11-20-2023 Evaluation note* Encounter Date Diagnosis Assessment Notes Treatment Notes Treatment Clinical Notes Dec, Diarrhea, unspecified type (ICD-10 - R19.7) Pt appears to be having secondary from viral infection. There is no abdominal pain on exam and pt is afebrile which is reassuring. C. diff infection is a possibility as she was recently treated [facility] antibitics for a UTI, will check stool [...] Pt understands and agrees with the plan. [facility] Other 11-07-2023 Evaluation note* Encounter Date Diagnosis Assessment Notes Treatment Notes Treatment Clinical Notes Dec, Frequent UTI (ICD-10 - N39.0) [facility] Other 11-07-2023 Evaluation note* Encounter Date Diagnosis [...] right (ICD-10 - M75.21) Keep scheduled appt lourdes Licea today. Consider PT at [facility] or the [facility]. [facility] Other 08-15-2023 Hospital Discharge instructions Patient Education 09/22/2022 15:32:53 Urinary Tract Infection, Adult, Zfca-jz-Zpiq Urinary Tract Infection, Adult A urinary tract [...] Follow these instructions at home: Medicines Take sxgc-bzj-eswqvah and prescription medicines only as told by [...] provider. Document Revised: 09/06/2020 Document Reviewed: 09/06/2020 [employer] Patient Education 2022 [employer]. Follow Up Care 09/22/2022 10:38:22 With:DEB ZAZUETA, MALATHI Olvera, URL Address: [address] [place] [address] When: Unknown [facility] 08-03-2023 Evaluation note* Encounter Date Diagnosis Assessment Notes Treatment Notes Treatment Clinical Notes Sep, Dysuria (ICD-10 - R30.0) [facility] Other 08-01-2023 Evaluation note* Encounter Date Diagnosis Assessment Notes Treatment Notes Treatment Clinical Notes Sep, Microscopic colitis, unspecified microscopic colitis type (ICD-10 - K52.839) [facility] Other 07-25-2023 Evaluation note* Encounter Date Diagnosis Assessment Notes Treatment Notes Treatment Clinical Notes Aug, Frequent UTI (ICD-10 - N39.0) Continue estrogen cream. Review with Urology on her followup appt. Discussed causes of UTIs Aug, Lymphocytic colitis (ICD-10 - K52.832) Improved with GI at [facility]. 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 Barry. Reviewed medications and explained their purpose. [facility] Other 07-20-2023 Evaluation note* Encounter Date Diagnosis Assessment Notes Treatment Notes Treatment Clinical Notes Aug, Recurrent UTI (ICD-10 - N39.0) [facility] Other 05-02-2023 Hospital Discharge instructions Patient Education 06/09/2022 14:15:56 Urinary Tract Infection, Adult, Wvcz-gl-Ahoc Urinary Tract Infection, Adult A urinary tract [...] Follow these instructions at home: Medicines Take cwkv-zxm-kwlvmzk and prescription medicines only as told by [...] provider. Document Revised: 09/06/2020 Document Reviewed: 09/06/2020 [employer] Patient Education 2022 [employer]. Follow Up Care 06/01/2022 10:03:13 With:CHER KRISHNAN, Marvin Camacho, URL Address: [facility] [address] [place] [phone] When:10/10/2022 [facility] 04-11-2023 Hospital Discharge instructions Patient Education [...] Treatment for this condition includes: Antibiotic medicine. Mobk-rpb-dskwybz medicines to treat discomfort. Drinking enough water [...] Follow these instructions at home: Medicines Take kuvt-maz-zjviibh and prescription medicines only as told by [...] 11/04/2005 Document Revised: 01/12/2019 Document Reviewed: 08/04/2018 [employer] Patient Education 2020 [employer]. Follow Up Care 04/20/2022 10:50:51 With:DEB ZAZUETA, MALATHI Olvera, URL Address: [address] [place] [address] When: Unknown [facility] [employer] 04-06-2023 Evaluation note* Encounter Date Diagnosis Assessment Notes Treatment Notes Treatment Clinical Notes May, Frequent UTI (ICD-10 - N39.0) [facility] Other 03-24-2023 Evaluation note* Encounter Date Diagnosis [...] back this morning. antibiotic at her pharmacy. [facility] Other 03-17-2023 Evaluation note* Encounter Date Diagnosis Assessment Notes Treatment Notes Treatment Clinical Notes Apr, Lymphocytic colitis (ICD-10 - K52.832) Continue Entyvio as directed Continue Lotronex 0.5 mg 1/2 tablet daily Rto 4 months [facility] Other 03-09-2023 Evaluation note* Encounter Date Diagnosis Assessment Notes Treatment Notes Treatment Clinical Notes Apr, Acute cystitis without hematuria (ICD-10 - N30.00) [facility] Other 02-28-2023 Evaluation note* Encounter Date Diagnosis Assessment Notes Treatment Notes Treatment Clinical Notes Mar, Recurrent UTI (ICD-10 - N39.0) Discussed options. Will try estrogen cream for vaginal health. Denies personal history of female cancers. Will also set up w Urology Mar, Colitis (ICD-10 - K52.9) Further treatment with Dr. Brown w appt on 04/24 [facility] Other 02-20-2023 Evaluation note* Encounter Date Diagnosis Assessment Notes Treatment Notes Treatment Clinical Notes Mar, Dysuria (ICD-10 - R30.0) [facility] Other 01-09-2023 Evaluation note* Encounter Date Diagnosis [...] boost or other supplement to gain weight 09 Nestor, 2023 Gastric ulcer (ICD-10 - K25.9) Encouraged her to continue pantoprazole [facility] Other 01-04-2023 Evaluation note* Encounter Date Diagnosis Assessment Notes Treatment Notes Treatment Clinical Notes Feb, Lymphocytic colitis (ICD-10 - K52.832) Start Entyvio infusions every 8 weeks Continue Budesonide, Alosetron, Imodium, and Pepto for now until starting Entyvio. Pt to keep record of bowel movements - how many and consistency Follow up in 2 months Feb, Fecal incontinence (ICD-10 - R15.9) [facility] Other 11-28-2022 Evaluation note* Encounter Date Diagnosis [...] Pantoprazole as prescribed Okay to stop Sucralfate [facility] Other 09-25-2022 NoteOPERATIVE NOTE OPERATION DATE: 11/04/2021 [...] was taken to PACU in good condition.[facility] 03-27-2021 Evaluation note* Encounter Date Diagnosis Assessment Notes Treatment Notes Treatment Clinical Notes Mar, Microscopic colitis, unspecified microscopic colitis type (ICD-10 - K52.839) INCREASE COLESTIPOL TO 4 TABS AT LUNCHTIME DAILY IF NOT IMPROVED ON HIGHER DOSE PT TO CALL ON 03/31 FOR ALTERNATIVE PLAN Mar, Irritable bowel syndrome with diarrhea (ICD-10 - K58.0) [facility] Other 12-20-2021 Evaluation note* Encounter Date Diagnosis Assessment Notes Treatment Notes Treatment Clinical Notes Jan, Microscopic colitis, unspecified microscopic colitis type (ICD-10 - K52.839) START COLESIPOL 2 PO DAILY CONTINUE BUDESONIDE WITHOUT CHANGE 3 PO Q AM AND MAYBE CONSIDERING STOP THIS IF COLESTIPOL IS WORKING ENOUGH TO CONTROL HER SYMPTOMS [facility] Other 12-20-2021 Evaluation note* Encounter Date Diagnosis Assessment Notes Treatment Notes Treatment Clinical Notes Jan, Microscopic colitis, unspecified microscopic colitis type (ICD-10 - K52.839) [facility] Other Evaluation + Plan note No data available for this section [facility] evaluation + Plan note Future Appointments Appointment Date:10/27/2022 01:00:00 PM Scheduled Provider:MALATHI VIEIRA PA-C Location:[facility] Appointment Type:URO Office Visit [facility] Evaluation + Plan note Future Appointments Appointment Date:12/29/2022 01:00:00 PM Scheduled Provider:MALATHI VIEIRA PA-C Location:[facility] Appointment Type:URO Office Visit [facility] evaluation + Plan note Future Appointments Appointment Date:06/15/2023 02:00:00 PM Scheduled Provider:MALATHI VIEIRA PA-C Location:[facility] Appointment Type:URO Office Visit [facility] evaluation + Plan note Future Appointments Appointment Date:01/30/2023 10:30:00 AM Scheduled Provider: Location:[facility] Appointment Type:ASU IV Antibiotic (FT) Appointment Date:01/31/2023 10:30:00 AM Scheduled Provider: [facility] Appoint[facility] Type:ASU IV Antibiotic (FT) Appointment Date:02/01/2023 10:30:00 AM Scheduled Provider: [facility] App[facility] Type:ASU IV Antibiotic (FT) Appointment Date:02/02/2023 10:30:00 AM Scheduled Provider: [facility] Appointment Type:ASU IV Antibiotic (FT) Appointment Date:02/03/2023 10:30:00 AM Scheduled Provider: Location:[facility] Appointment Type:ASU IV Antibiotic (FT) Appointment Date:02/04/2023 10:30:00 AM Scheduled Provider: Location:[facility] Appointment Type:ASU IV Antibiotic (FT) Appointment Date:06/15/2023 02:00:00 PM Scheduled Provider:MALATHI VIEIRA PA-C Location:[facility] Appointment Type:URO [facility] note[facility] InformationNort [employer] Other Evaluation noteNo assessment information available [facility] Work Phone: evaluation note* Diagnosis Onset Date Resolution Status Recurrent Clostridioides difficile diarrhea acute [facility] Work Phone: evaluation note* Diagnosis Onset Date Resolution Status Recurrent Clostridioides difficile diarrhea acute Diarrhea acute Microscopic colitis acute Recurrent Clostridioides difficile diarrhea acute Recurrent UTI acute [facility] Work Phone: evaluation note* Diagnosis 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 ulcer of right leg (CMS-HCC) 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 ulcer of ankle, right (CMS-HCC) Critical limb ischemia of both lower extremities with rest pain (CMS-HCC) documented in this encounter [facility] Diagnosis 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 ulcer of right leg (CMS-HCC) 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 ulcer of ankle, right (CMS-HCC) Critical limb ischemia of both lower extremities with rest pain (CMS-HCC) Encounter for therapeutic drug monitoring- Primary Venous ulcer of ankle, right (CMS-HCC) Venous ulcer of ankle, right (CMS-HCC)- Primary Venous ulcer of ankle, right (CMS-HCC) Encounter for therapeutic drug monitoring [facility] N[facility] - Reported* Type Description Date Medical History HTN Medical History hyperlipidemia Medical History microscopic colitis Surgical History T&A Surgical History Quad by-pass Surgical History total hysterectomy Surgical History gall bladder Surgical History Cataracts Surgical History Right Knee Scope Surgical History Sphincterectomy Surgical History Left Rotator Scope Surgical History Hernia Repair 03/24/2012 Hospitalization History See Surgical Hx [employer] Other [employer] general Narrative - Reported* Type Description Date [...] Hospitalization History [facility] 12/2022 [facility] Other [employer] general Narrative - Reported* Type Description Date [...] Hospitalization History [facility] 12/2022 [facility] Other [employer] general Narrative - Reported* Type Description Date [...] Hospitalization History [facility] 12/2022 [facility] Other history general Narrative - Reported* Type [...] Hospitalization History [facility] 12/2022 [facility] Other Hospital Discharge instructions No data available for this section [facility]InstructionsNot on filedocumented in this encounter [facility] filedocumented in this encounter [facility]InstructionsNot on filedocumented in this encounter [facility] No data available for this section [facility] Summary Purpose Family History No Family History Records Found Relationship Condition Age at Onset Recorded Date/T carolee father Unknown Not Specified Unknown brother Malignant neoplasm Unknown Diabetes mellitus Unknown Advance Directives No Advanced Directives Records Found Advance Directive Response Recorded Date/ Time Advance Directives No November 22, 2017 9:57am Advance Directive Response Recorded Date/ Time Advance Directives No November 22, 2017 10:57am Documents on File Type Date Recorded 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 Healthcare Agents on File Name Relationship Healthcare Agent Relationship Communication Joanna Linkenhoker Daughter First Alterna te Health Care Agent [email or web address] Hospital Course Note [facility] Clinical Discharge Summary PERSON INFORMATION Name VINCENT HSU Age 83 Years 1935 Sex FEMALE Language Amharic PCP Lisandro KRISHNAN, Gypsy Olvera Marital Status Med Service Med/Surg Acct# Arrival 09/25/2019 06:52:00 Visit Reason SURGERY - LEFT TOTAL HIP [facility] Address: [address] [place] [address] Comment: PROVIDER INFORMATION VITALS INFORMATION Vital Sign [...] Recurrent UTI Reason for Referral Reason DUPLICATE [facility] office - frequent UTIs. Diagnosis 1 Frequent UTI (N39.0) Referral Organization [facility] Jumo jah Referring Provider First Name Gypsy Referring Provider Last Name Lisandro Referring Provider Specialty [facility] Referred Organization [facility] Referred Provider Beau Hernandez Referred Address [address],[place], [place],[address] Referred Provider Specialty Urology Referral Priority Routine General Notes Tatyana Bojorquez 01:56:52 PM >received today Tatyana Bojorquez 05/14/2022 02:02:41 PM >attachments made, notes locked, referral faxed Tatyana Bojorquez 05/14/2022 03:25:50 PM >DUPLICATE REFERRAL Reason *FU 04/28 [facility] office - recurrent UTIs. Diagnosis 1 Recurrent UTI (N39.0 ) Referral Organization [facility] Jumo jah Referring Provider First Name Gypsy Referring Provider Last Name Mcmahon Referring Provider Specialty [facility] Referred Organization [facility] Referred Provider Gerson Juárez Referred Address [address],[place], [place],[address] Referred Provider Specialty Urology Referral Priority Routine [...] and content) DATE CREATED AUTHOR 09/17/2018 [facility] DATE CREATED AUTHOR AUTHOR'S ORGANIZ ATION 10/30/2019 [facility] DATE CREATED AUTHOR AUTHOR'S ORGANIZ ATION 05/31/2022 [facility] DATE CREATED AUTHOR AUTHOR'S ORGANIZ ATION 05/30/2023 [facility] DATE CREATED AUTHOR AUTHOR'S ORGANIZ ATION 06/19/2023 [facility] DATE CREATED AUTHOR AUTHOR'S ORGANIZ ATION 07/29/2023 [facility] DATE CREATED AUTHOR AUTHOR'S ORGANIZ ATION 10/29/2023 [facility] DATE CREATED AUTHOR AUTHOR'S ORGANIZ ATION 11/20/2023 [facility] DATE CREATED AUTHOR AUTHOR'S ORGANIZ ATION 12/16/2023 [facility] DATE CREATED AUTHOR AUTHOR'S ORGANIZ ATION 12/18/2023 [facility] REASON FOR VISIT (unrecogniz ed section and content) Reason Comments Acute deep vein thrombosis o f left popliteal vein (CMS-HCC) Critical limb ischemia of ri ght lower extremity with gangre States pain in left lateral thigh. Rates 9\10 sharp pain Care Teams (unrecognized sec tion and content) [...] 15, 2023 End: April 15, 2023 Jacinto aMx MD Attending Provider Active Sta rt: April [...] Member Role Status Dates Malathi Velázquez APRN [employer]-C Attending Provider Act jamar Start: December 28, [...] February 26, 2023 End: February 26, 2023 Guillotine Operator Relationship Specialty Start Date End Date Gypsy Mcmahon MD [address] [place] [id number] PCP - General Family Medicine 04/10/22 Guillotine Operator Relationship Specialty Start Date End Date Gypsy Mcmahon MD [address] [place] [phone] PCP - General Family Medicine 04/10/22 Guillotine Operator Relationship Specialty Start Date End Date Gypsy Mcmahon MD [address] [place] [phone] PCP - General Family Medicine 07/18/22 Guillotine Operator Relationship Specialty Start Date End Date Gypsy Mcmahon MD [address] [place] [phone] PCP - General Family Medicine 04/10/22 Goals (unrecognized section and content) Goals may [...] BE BASED ON THE PRIMARY CLINICAL RECORDS. [facility]. provides no warranty or guarantee of the accuracy or completeness of information in this document.
[2023-12-18 19:26] VITALS: BP 169/73; PULSE 85; TEMP 36.8; O2SAT 98; BMI 19.9
[2023-12-18] MEDS: LIDOCAINE HCL 1%-EPINEPHRINE 1:100,000 20 ML MDV INJ (19:45)
[2023-12-18] MEDS: SURGIFOAM GEL SPONGE SIZE 100 1 EACH TOPICAL (19:45)
--- NOTE | 2023-12-18 19:46 | ED.LOWEXI1 ---
HPI HPI - Extremity Injury (Lower) General Chief Complaint: Extremity Injury, Lower Stated Complaint: WOUND CHECK Time Seen by Provider: 12/18/23 19:45 Source: patient and family Mode of arrival: Wheelchair Limitations: no limitations History of Present Illness HPI Narrative: Patient is an 88-year-old female who presents to the emergency department with her son for evaluation of bleeding from the right leg. She has a chronic venous stasis wound that is managed by vascular surgery. She has home health come into the home to dress the area. She states the dressing was changed yesterday, it was supposed to stay in place until Wednesday. She states tonight after being at a family birthday democr[employer], she went home and noticed bleeding from the dressing. She is on Plavix. She denies any falls or injuries. She has chronic tenderness to the area that is not worse today. Related Data Home Medications ?Medication ?Instructions ?Recorded ?Confirmed clopidogrel 75 mg tablet (Plavix) 75 mg PO DAILY 09/27/22 07/25/23 metoprolol succinate 50 mg 50 mg PO DAILY 09/27/22 07/25/23 tablet,extended release 24 hr simvastatin 40 mg tablet 40 mg PO DAILY 09/27/22 07/25/23 spironolactone 25 mg tablet 25 mg PO DAILY 09/27/22 07/25/23 acetaminophen 500 mg tablet 1,000 mg PO Q6H PRN pain 12/29/22 07/25/23 alosetron 0.5 mg tablet 0.5 mg PO DAILY PRN diarrhea 12/29/22 07/25/23 budesonide 3 mg 3 mg PO BID 12/29/22 07/25/23 capsule,delayed,extended release cholecalciferol (vitamin D3) 50 50 mcg PO DAILY 12/29/22 07/25/23 mcg (2,000 unit) tablet (D3 DOTS) estradiol 0.01% (0.1 mg/gram) 1 g vaginal .TWICE A WEEK 12/29/22 07/25/23 vaginal cream (Estrace) loperamide 2 mg capsule (Imodium 2 mg PO Q4H 12/29/22 07/25/23 A-D) melatonin 5 mg tablet 5 mg PO DAILY 12/29/22 12/29/22 zinc gluconate 50 mg tablet 50 mg PO DAILY 12/29/22 07/25/23 momghp-tirskjom-sboltud 2 cap PO QID 07/25/23 07/25/23 36,000-114,000-180,000 unit capsule,delay rel (Creon) pantoprazole 20 mg tablet,delayed 20 mg PO DAILY 07/25/23 07/25/23 release Previous Rx's ?Medication ?Instructions ?Recorded Lactobacillus acidophilus, 1 packet PO BID 30 days #60 ea 01/01/23 [place] 100 million cell granules packet (Floranex) ciprofloxacin HCl 250 mg tablet 250 mg PO BID 3 days #6 tabs 07/25/23 (Cipro) Allergies Allergy/AdvReac Type Severity Reaction Status Date / Time promethazine (From Phenergan) Allergy Severe Agitated Verified 12/18/23 19:26 levofloxacin AdvReac Severe Drowsy Verified 12/18/23 19:26 Penicillins AdvReac Severe Unknown Verified 12/18/23 19:26 Antihistamines - Alkylamine AdvReac Intermediate Unknown Verified 12/18/23 19:26 Opioid HPI Opioid Management Most Recent Pain and Opioid Data: Last Pain Scale 0 12/31/22 01:53 12/31/22 Review of Systems ROS Constitutional Denies: fever or chills Ears, nose, mouth, and throat Denies: throat pain or nasal congestion Cardiovascular Denies: chest pain Respiratory Denies: shortness of breath Gastrointestinal Denies: nausea or vomiting Musculoskeletal Denies: back pain or neck pain Integumentary/Breast Denies: rash Neurological Denies: numbness in extremities or weakness in extremities Hematologic/Lymphatic Reports: easy bruising and easy bleeding [facility] Medical History (Updated 12/18/23 @ 19:55 by TIFFANIE Richard) Cataracts, bilateral ?H26.9 - Unspecified cataract (ICD-10) HTN (hypertension) ?I10 - Essential (primary) hypertension (ICD-10) Hypomagnesemia ?E83.42 - Hypomagnesemia (ICD-10) Peripheral edema ?R60.0 - Localized edema (ICD-10) GERD (gastroesophageal reflux disease) ?K21.9 - Gastro-esophageal reflux disease without esophagitis (ICD-10) IBD (inflammatory bowel disease) ?K52.9 - Noninfective gastroenteritis and colitis, unspecified (ICD-10) CAD (coronary artery disease) ?I25.10 - Atherosclerotic heart disease of [place] coronary artery without angina pectoris (ICD-10) 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 (ICD-10) Cholecystectomy planned Cataract ?H26.9 - Unspecified cataract (ICD-10) Acute hypokalemia ?E87.6 - Hypokalemia (ICD-10) Clostridium difficile colitis ?A04.72 - Enterocolitis due to Clostridium difficile, not specified as recurrent (ICD-10) Acute dehydration ?E86.0 - Dehydration (ICD-10) Acute pain of right shoulder ?M25.511 - Pain in right shoulder (ICD-10) Acute hyponatremia ?E87.1 - Hypo-osmolality and hyponatremia (ICD-10) Urinary tract infection ?N39.0 - Urinary tract infection, site not specified (ICD-10) Altered mental status ?R41.82 - Altered mental status, unspecified (ICD-10) Surgical History (Updated 07/25/23 @ 19:48 by Arcadio Rowland) History of hysterectomy ?Z90.710 - Acquired absence of both cervix and uterus (ICD-10) 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 - Presence of aortocoronary bypass graft (ICD-10) History of left hip replacement ?Z96.642 - Presence of left artificial hip joint (ICD-10) S/P CABG x 5 ?Z95.1 - Presence of aortocoronary bypass graft (ICD-10) Family History (Updated 12/29/22 @ 14:40 by Melissa Britt) Father Family history of CHF (congestive heart failure) Family history of hypertension Brother Family history of cancer Sister Family history of cancer Family history of myocardial infarction Mother Family history of hypertension Family history of stroke Social History Within the past year, how often did you have a drink containing alcohol: monthly or less Within the past year, how many standard drinks containing alcohol did you have on a typical day: 1 or 2 Within the past year, how often did you have six or more drinks on one occasion: never Total score: 0 Score interpretation: A score less than 3 is consistent with normal alcohol consumption. Smoking status: Never smoker Non-prescribed substance use: denies use Highest level of school completed/degree received: 9th grade Are you now , , , , never or living with a partner: In a typical week, how many times do you talk on the telephone with family, friends, or neighbors: twice per week How often do you get together with friends or relatives: twice per week How often do you attend congregation or church services: never Do you belong to any clubs or organizations such as congregation groups unions, fraternal or athletic groups, or school groups: no Total score: 1 Score interpretation: A score of less than or equal to 1 indicates the most socially isolated. Little interest or pleasure in doing things: not at all Feeling down, depressed, or hopeless: not at all Exam Narrative Exam Narrative: Gen.: Awake, alert, in no distress Head: Normocephalic, atraumatic ENT: Moist mucous membranes Respiratory: No respiratory distress Extremities: 5 cm venous stasis wound noted to the right medial distal calf. Initially no bleeding noted Psych: Normal mood and affect Neuro: No focal neuro deficit Skin: Warm, dry, intact Constitutional Vital Signs, click to edit/add: Last Vital Signs Temp 98.3 F 12/18/23 19:26 Pulse 85 12/18/23 19:26 Resp 18 12/18/23 19:26 BP 169/73 H 12/18/23 19:26 Pulse Ox 98 12/18/23 19:26 O2 Del Method Room Air 12/18/23 19:26 Course Vital Signs Vital signs: Vital Signs Temperature 98.3 F 12/18/23 19:26 Pulse Rate 85 12/18/23 19:26 Respiratory Rate 18 12/18/23 19:26 Blood Pressure 169/73 H 12/18/23 19:26 Pulse Oximetry 98 12/18/23 19:26 Oxygen Delivery Method Room Air 12/18/23 19:26 Temperature 98.3 F 12/18/23 19:26 Pulse Rate 85 12/18/23 19:26 Respiratory Rate 18 12/18/23 19:26 Blood Pressure 169/73 H 12/18/23 19:26 Pulse Oximetry 98 12/18/23 19:26 Oxygen Delivery Method Room Air 12/18/23 19:26 MDM - Extremity Injury (Lower) MDM Narrative Medical decision making narrative: Initially on evaluation, the patient has no bleeding from the area. In investigating the wound, there was a steady pinhole area of bleeding. A tourniquet was applied temporarily to inject 6 cc of 1% lidocaine with epi. 3-0 Ethilon was used to make a [id number] suture with cessation of bleeding. There is no continued arterial or pressured bleeding. The area was dressed with Gelfoam, Kerlix and Erik wrap and the patient remains neurovascularly intact. She was strongly encouraged to keep the area elevated, leave the dressing intact for 48 hours and follow-up with vascular surgery. Return to the ER if symptoms change or worsen SHARED APC VISIT, PHYSICIAN ATTESTATION: [id number] I performed a substantive part of the MDM during the patient?s E/M visit. I personally evaluated and examined the patient. I personally made or approved the documented management plan and acknowledge its risk of complications. Medical Records Attestation: I reviewed the patient's medical records. Discharge Plan Discharge Chief Complaint: Extremity Injury, Lower Clinical Impression: Bleeding from wound Patient Disposition: Home, Self-Care Time of Disposition Decision: 19:55 Condition: Good Prescriptions / Home Meds: No Action metoprolol succinate 50 mg tablet extended release 24 hr 50 mg PO DAILY simvastatin 40 mg tablet 40 mg PO DAILY spironolactone 25 mg tablet 25 mg PO DAILY clopidogrel [Plavix] 75 mg tablet 75 mg PO DAILY alosetron 0.5 mg tablet 0.5 mg PO DAILY PRN (Reason: diarrhea) acetaminophen 500 mg tablet 1,000 mg PO Q6H PRN (Reason: pain) budesonide 3 mg capsule,delayed,extend.release 3 mg PO BID zinc gluconate 50 mg tablet 50 mg PO DAILY cholecalciferol (vitamin D3) [D3 DOTS] 50 mcg (2,000 unit) tablet 50 mcg PO DAILY melatonin 5 mg tablet 5 mg PO DAILY loperamide [Imodium A-D] 2 mg capsule 2 mg PO Q4H Rx Instructions: administer after each loose stool until symptoms controlled; do not exceed 8 mg per 24 hrs estradiol [Estrace] 0.01 % (0.1 mg/gram) cream 1 g vaginal .TWICE A WEEK Lactobacillus acidoph-L.bulgar [Floranex] 100 million cell Granules In Packet 1 packet PO BID 30 Days Qty: 60 11RF Creon 36,000-114,000- 180,000 unit capsule,delayed release(DR/EC) 2 cap PO QID pantoprazole 20 mg tablet,delayed release (DR/EC) 20 mg PO DAILY ciprofloxacin HCl [Cipro] 250 mg tablet 250 mg PO BID 3 Days Qty: 6 0RF Print Language: Hungarian Instructions: Chronic Wounds (ED) Referrals: Shirlene Vergara MD [Primary Care Provider] - 1 week
== END 2023-12-18 20:23 | disposition home or self-care (01) ==
PROVIDERS: Emergency Provider Student in an Organized Health Care Education/Training Program; PCP Family Medicine
DX: R58 Hemorrhage, not elsewhere classified (principal); I87.8 Other specified disorders of veins
CPT/HCPCS: 12001; 99284

== ENCOUNTER 2024-01-27 14:15 | Outpatient (OUT) | payer MEDICARE, BC, SELFPAY | END 2024-01-27 14:16 | disposition home or self-care (01) | LOC: WC 14:15 | PROVIDERS: PCP Family Medicine; Visit Provider Physician Assistant | DX: I87.331 Chronic venous hypertension (idiopathic) with ulcer and inflammation of right lower extremity (principal); L97.812 Non-pressure chronic ulcer of other part of right lower leg with fat layer exposed; L89.610 Pressure ulcer of right heel, unstageable | CPT/HCPCS: 29580; A6213 ==

== ENCOUNTER 2024-02-22 16:29 | Outpatient (OUT) | payer MEDICARE, BC, SELFPAY | END 2024-02-22 16:30 | disposition home or self-care (01) | LOC: WC 16:29 | PROVIDERS: PCP Family Medicine; Visit Provider Physician Assistant | DX: I87.331 Chronic venous hypertension (idiopathic) with ulcer and inflammation of right lower extremity (principal); L97.812 Non-pressure chronic ulcer of other part of right lower leg with fat layer exposed; L89.610 Pressure ulcer of right heel, unstageable | CPT/HCPCS: G0463 ==

== ENCOUNTER 2024-03-14 14:38 | Outpatient (OUT) | payer MEDICARE, BC, SELFPAY | END 2024-03-14 14:39 | disposition home or self-care (01) | LOC: WC 14:39 | PROVIDERS: PCP Family Medicine; Visit Provider Physician Assistant | DX: I87.331 Chronic venous hypertension (idiopathic) with ulcer and inflammation of right lower extremity (principal); L97.812 Non-pressure chronic ulcer of other part of right lower leg with fat layer exposed | CPT/HCPCS: 11042; 29580 ==

== ENCOUNTER 2024-04-04 14:17 | Outpatient (OUT) | payer MEDICARE, BC, SELFPAY | END 2024-04-04 14:18 | disposition home or self-care (01) | LOC: WC 14:17 | PROVIDERS: PCP Family Medicine; Visit Provider Physician Assistant | DX: I87.331 Chronic venous hypertension (idiopathic) with ulcer and inflammation of right lower extremity (principal); L97.812 Non-pressure chronic ulcer of other part of right lower leg with fat layer exposed; L89.610 Pressure ulcer of right heel, unstageable | CPT/HCPCS: G0463 ==

== ENCOUNTER 2024-04-07 22:58 | Emergency (ER) | payer MEDICARE, BC, SELFPAY ==
[2024-04-07 23:13] VITALS: BP 200/63; PULSE 74; TEMP 37.1; O2SAT 100; BMI 20.4
--- OUTSIDE RECORDS SUMMARY | 2024-04-07 23:14 | XMS_ITS | CCD ---
Author Organization [facility] Care Team Providers Care Vice President Of Marketing Name Role Phone Jian Giana Unavailable Hunter Brown Unavailable [phone] MD Gypsy Mcmahon Primary Care Provider MD Gypsy Mcmahon Attending Provider [phone] MD Hunter Brown Attending Provider Gypsy Mcmahon [...] MCMAHON, DR GYPSY Olvera Primary Care Unavailable [facility] ., TIFFANIE VALLES Consulting Unavailjhonatan e MCMAHON, [...] PETER Fady Admitting Unavailable MCMAHON, DR GYPSY Ovlera Primary Care Unavailable HIGHLANDER, CLAU Shrestha Attending [...] EMILIE Attending Unavailable CLAU SHAH Consulting Unavailable SHAIKH Nasreen CHAPMAN Admitting Unavailable ROSE ., MR GIBBONS Consulting Unavailable SHAIKH Nasreen CHAPMAN Attending Unavailable MCMAHON, DR GYPSY Olvera Primary Care Unavailable ANN LEON Consulting Unavailable SAMSA ., KANDI Consulting Unavailable YAKELIN, HERNANDO Consulting Unavailable ARI, SHAIKH Nasreen Consulting Unavailable GIANA HOLLY Consulting Unavailable KIM ., KATIE HOWELL Consulting Unavailable JENNIFER PLATT Consulting Unavailable GEMBUS, ROBERT Consulting Unavailable PATRICIA, ANG Consulting Unavailable PILY, CLAU Shrestha Attending Unavailable [...] Max Attending Unavailable Jacinto Max Referring Unavailable Lisandro, Gypsy E Primary Care Unavailable Madison, Monie Gastelum Attending Unavailable Madison, Monie Gastelum Admitting Unavailable Mcmahon, Gypsy E Primary Care Unavailable Tutiffanie, Marvin Yancey Admitting Unavailable Tutiffanie, Marvin Yancey Attending Unavailable Lisandro, Gypsy E Primary Care Unavailable Hunter Brown Admitting UnavailHunter Grimes Attending Unavailabl e Gypsy Mcmahon E Primary Care Unavailable DEB, MALATHI Olvera Attending Unavailable MALATHI VIEIRA Attending Unavailable MALATHI VIEIRA Referring Unavailable MALATHI VIEIRA Admitting Unavailable MALATHI VIEIRA Attending Unavailable MALATHI VIEIRA Attending Unavailable Gypsy Mcmahon MD Primary Care Provider [phone] ROYAL, MOHAMED F Attending Unavailable LISANDRO GYPSY [...] Unavailable LISANDRO, GYPSY E Primary Care Unavailable ROYAL, MOHAMED F Referring Unavailable MCMAHON, GYPSY E Primary Care Unavailable ROYAL, MOHAMED F Admitting Unavailable ROYAL, MOHAMED F Attending Unavailable MCMAHON, GYPSY E Primary Care Unavailable MARY JANE PATTERSON JR Consulting Unavailable HILDA, ADONIS U Consulting Unavailable GYPSY MCMAHON E Primary Care Unavailable ROYAL, MOHAMED F Attending Unavailable ROYAL, MOHAMED F Referring Unavailable GYPSY MCMAHON E Primary Care Unavailable EMMA, HILDA ANWAR H Attending Unavailable EMMA, HILDA ANWAR H Referring Unavailable GYPSY MCMAHON E Primary Care Unavailable ROYAL, MOHAMED F Referring Unavailable GYPSY MCMAHON E Primary Care Unavailable ROYAL, MOHAMED F Attending Unavailable ROYAL, MOHAMED F Referring Unavailable GYPSY MCMAHON E Primary Care Unavailable ROYAL, MOHAMED F Attending Unavailable ROYAL, MOHAMED F Referring Unavailable GYPSY MCMAHON E Primary Care Unavailable ROYAL, MOHAMED F Referring Unavailable GYPSY MCMAHON E Primary Care Unavailable ROYAL, MOHAMED F Referring Unavailable GYPSY MCMAHON E Primary Care Unavailable ROYAL, MOHAMED F Attending Unavailable ROYAL, MOHAMED F Referring Unavailable GYPSY MCMAHON E Primary Care Unavailable GYPSY MCMAHON E Referring Unavailable GYPSY MCMAHON E Primary Care Unavailable ROYAL, MOHAMED F Admitting Unavailable ROYAL, MOHAMED F Attending Unavailable GYPSY MCMAHON E Primary Care Unavailable CHAPINCITO SUE Attending Unavailable GYPSY MCMAHON Primary Care Unavailable ROYAL, MOHAMED F Referring Unavailable GYPSY MCMAHON E Primary Care Unavailable ROYAL, MOHAMED F Attending Unavailable ROYAL, MOHAMED F Referring Unavailable GYPSY MCMAHON Primary Care Unavailable Gypsy Mcmahon MD Primary Care Provider KYREE FLETCHER Attending Unavailable MIESHA BARRY Attending Unavailable SUNNY INGRAM Attending Unavailable SUNNY INGRAM Referring Unavailable SUNNY INGRAM Attending Unavailable SUNNY INGRAM Referring Unavailable Allergies Allergy Classification Reported Allergen(s) Allergy Type Date of Onset Reaction(s) Facility (20 sources) Promethazine; Translations: [promethazine] Drug Allergy 02-04-20 13 anaphylaxis, Anaphylaxis (disorder), Unknown, Other, Anxiety [facility] (20 sources) histamines Drug allergy Unknown [employer] Other (20 sources) Histamine H2 Inhibitors; Translations: [Histamine H2 Inhibitors] Allergy to substance 07-16-19 13 Other (See Comments) [facility] (20 sources) levoFLOXacin; Translations: [levofloxacin] Drug Allergy 07-01-19 23 Tremor (finding), Other (See Comments) [facility] (1 source) diphenhydrAMINE Drug Allergy 04-20-19 [facility] (1 source) ezetimibe Drug Allergy 04-20-19 [facility] (1 source) Gemfibrozil Drug Allergy 04-20-19 [facility] (2 sources) Levamisole; Translations: [Phenergan] Drug Allergy 07-16-19 13 [facility] (6 sources) NSAIDs; Translations: [NSAIDS (NON-STEROIDAL ANTI-INFLAMMATORY DRUG)] Drug allergy (disorder) 04-20-19 [facility] (1 source) Nasal Decongestant Drug allergy (disorder) 04-20-19 [facility] (1 source) Darvocet-N 100 Drug allergy (disorder) 04-20-19 [facility] (11 sources) diphenhydrAMINE; Translations: [diphenhydramine] Drug Allergy jumpy,, Unknown [facility] (14 sources) Penicillin; Translations: [penicillin] Drug Allergy Eruption of skin (disorder) [facility] (20 sources) Penicillins; Translations: [Penicillins] Propensity to adverse reactions 02-25-19 24 Rash [facility] (3 sources) Antihistamines Allergy to substance 02-26-19 Unknown Reaction [facility] (1 source) Promethazine Drug Allergy 12-07-19 18 [facility] (18 sources) diphenhydrAMINE Drug Allergy 07-19-19 23 Unknown, Other (See Comments) [facility] (12 sources) ezetimibe; Translations: [EZETIMIBE] Drug Allergy 07-19-19 23 Unknown [facility] (12 sources) Gemfibrozil; Translations: [GEMFIBROZIL] Drug Allergy 07-19-19 23 Unknown [facility] (7 sources) Histamine; Translations: [HISTAMINE] Drug Allergy 02-04-20 13 [facility] (6 sources) Histamine H>2< antagonist Drug Intolerance 11-22-19 22 [facility] (6 sources) Non-steroidal anti-inflammatory agent Drug Allergy 07-19-19 Unknown [facility] (7 sources) Propoxyphene Drug Allergy 07-19-19 Unknown [facility] (5 sources) diphenhydrAMINE; Translations: [DIPHENHYDRAMINE HCL] Drug Allergy 10-14-19 [facility] (17 sources) ANTIHISTAMINE 12 HOUR; Translations: [ANTIHISTAMINE 12 HOUR] Propensity to adverse reactions to drug (disorder) 05-21-19 Other (See Comments) [facility] (17 sources) PROPOXYPHENE N-ACETAMINOPHEN; Translations: [PROPOXYPHENE N-ACETAMINOPHEN] Propensity to adverse reactions to drug (disorder) 10-14-19 Other (See Comments) [facility] (12 sources) ezetimibe Drug Allergy 10-14-19 Other (See Comments) [facility] (12 sources) Gemfibrozil Drug Allergy 10-14-19 Other (See Comments) [facility] (12 sources) Non-steroidal anti-inflammatory agent Propensity to adverse reactions to drug 10-14-19 Other (See Comments) [facility] Medications Current Medications Medication Drug Class(es) Dates Sig (Normalized) Sig (Original) acetaminophen 500 mg oral tablet (20 sources) Start: 01-06-2024 End: 01-09-2024 take 1000 mg by mouth every eight hours 1,000 mg, oral, Every 8 hours, First dose (after last modification) on Akiko 01/06/24 at 1730, For 3 days Start: 01-01-2024 End: 01-06-2024 take 1 tablet by mouth every six hours as needed for pain 1,000 mg, oral, Every 6 hours PRN, mild pain - pain scale 1-3, Starting on 01/01/24 at 2300 Start: 01-07-2022 take 2 tablets by [facility] every six hours as needed for pain acetaminophen (TYLENOL EXTRA STRENGTH) 500 mg tablet Take 2 tablets (1,000 mg total) by mouth every 6 (six) hours as needed for pain. 30 tablet 01/07/2022 Active acetaminophen (T ylenol) 325 MG tablet every 6 (six) hours. Active acetic acid 2.5 mg/ml irriga tion solution (6 sources) Start: 01-07-2024 acetic acid 0. 25 % irrigation Irrigate with 20 mL as directed in the morning and 20 mL before bedtime. Use 20 cc per gauze. 500 mL 12 01/07/2024 Active Start: 01-03-2024 20 mL, irrigat ion, 2 times daily, First dose on 01/03/24 at 0915, For irrigation only. Look-alike/sound-alike medication - verify indication for use. amoxicillin 500 mg oral capsule (3 sources) Penicillin-class Antibacterial Start: 04-16-2022 take 1 capsule by mouth every twelve hours Amoxicillin 500 MG 1 capsule Orally Twice a day for 7 days Apr, Active ascorbic acid 250 mg oral tablet (14 sources) Vitamin C Start: 02-21-2024 take 1 tablet by mouth twice daily Ascorbic Acid (Vitamin C) 250 mg tablet Active 250 MG PO Twice daily February 21, 2024 12:00am aspirin 81 mg delayed release oral tablet (20 sources) Platelet Aggregation Inhibitor, Nonsteroidal Anti-inflammatory Drug Start: 11-19-2023 End: 12-19-2023 take 1 tablet by mouth in the morning aspirin 81 mg Take 1 tablet (81 mg total) by mouth in the morning for 30 days. 30 tablet 11/19/2023 12/19/2023 Active Start: 12-06-2017 End: 04-15-2023 take 1 tablet by mouth once daily Aspirin (Aspir-81) 81 mg Tablet,Delayed Release (Dr/Ec) Discontinued 81 MG PO Daily December 05, 2017 11:00pm April 15, 2023 1:36pm Aspirin 81 Activ e bismuth subsalicylate 17.5 mg/ml oral suspension (20 sources) Bismuth Start: 05-21-2023 Bismuth Subsal icylate (Pepto-Bismol) 262 mg/15 mL suspension Active 524 MG PO every 30 to 60 minutes as needed May 20, 2023 11:00pm do not exceed 8 doses in a 24 hour period Start: 09-22-2022 Pepto-Bismol R efills(s) 0 Start Date: 09/22/22 Status: Ordered Start: 09-22-2022 take 3 tablets by mo ut once daily as needed, then take 3 tablets by mouth once daily as needed bismuth subsalicylate (PEPTO-BISMOL ORAL) daily as needed. TAKES 3 TABS MORNING AND 3 TABS NIGHTLY 09/22/2022 Start: 09-22-2022 take 3 tablets by mo uth once daily as needed, then take 3 tablets by mouth once daily as needed bismuth subsalicylate (PEPTO-BISMOL ORAL) daily as needed. TAKES 3 TABS MORNING AND 3 TABS NIGHTLY 09/22/2022 Suspended Start: 09-22-2022 take 3 tablets by mo uth once daily as needed, then take 3 tablets by mouth once daily as needed bismuth subsalicylate (PEPTO-BISMOL ORAL) daily as needed. TAKES 3 TABS MORNING AND 3 TABS NIGHTLY 09/22/2022 Active Start: 09-22-2022 bismuth subsal icylate (PEPTO-BISMOL ORAL) TAKES 3 TABS MORNING AND 3 TABS NIGHTLY 09/22/2022 Active Start: 09-22-2022 bismuth subsal icylate (PEPTO-BISMOL ORAL) Refills(s) 0 09/22/2022 Active bismuth subsalic ylate (Pepto Bismol) 262 MG chewable tablet Chew 524 mg in the morning and 524 mg at noon and 524 mg in the evening and 524 mg before bedtime. Chew before meals. Active Pepto-Bismol Act jamar budesonide 3 mg delayed release oral capsule (20 sources) Corticosteroid Start: 08-18-2023 End: 09-22-2023 take 1 capsule by mouth once daily Budesonide 3 mg capsule,delayed,extend.release Active 3 MG PO Daily September 22, 2023 7:51am Start: 05-21-2023 End: 07-07-2023 take 2 capsules by mouth once daily Budesonide 3 mg capsule,delayed,extend.release Discontinued 6 MG PO Daily May 21, 2023 9:12am July 07, 2023 9:28am Start: 05-21-2023 take 6 mg by mouth o nce daily Budesonide Active 6 MG PO Daily May 202023 10:12am Start: 12-06-2017 End: 05-21-2023 budesonide 3 mg oral delayed release capsule Refills(s) 0 Start Date: 05/14/22 Status: Ordered Start: 12-06-2017 End: 05-21-2023 take 9 mg by mouth once daily Budesonide Discontinued 9 MG PO Daily December 06, 2017 12:00am May 21, 2023 10:14am take 1 capsule by mo ut every twenty-four hours in the morning budesonide EC (ENTOCORT EC) 3 mg 24 hr capsule Take 1 capsule (3 mg total) by mouth in the morning. Active Calcium Gluconate (1 source) Start: 01-01-2024 calcium glucon ate IVPB 1000 mg/50 mL (20 mg/mL premix) cephalexin 500 mg oral capsule (6 sources) Cephalosporin Antibacterial Start: 01-07-2024 End: 01-10-2024 CEPHalexin (KEFLEX) 500 mg capsule Take 1 capsule (500 mg total) by mouth in the morning and 1 capsule (500 mg total) at noon and 1 capsule (500 mg total) in the evening and 1 capsule (500 mg total) before bedtime. Do all this for 10 doses. 10 capsule 01/07/2024 01/10/2024 Active Start: 01-07-2024 500 mg, oral, Every 6 hours scheduled, First dose on Wed01/07/24 at 1200, Patient reportedly has tolerated Keflex multiple times in the past Look-alike/sound-alike medication - verify indication for use., Indication: UTI Start: 08-18-2023 End: 08-23-2023 take 1 capsule by mouth three times daily Cephalexin 500 mg capsule Discontinued 500 MG PO Three times daily August 17, 2023 11:00pm August 23, 2023 12:19pm Start: 05-19-2023 End: 05-24-2023 take 1 capsule by mouth twice daily Cephalexin 500 mg capsule Discontinued 500 MG PO Twice daily May 18, 2023 11:00pm May 24, 2023 12:33pm cholecalciferol 0.05 mg oral tablet (12 sources) Vitamin D Start: 12-06-2017 take 1 tablet by mouth once daily Cholecalciferol (Vitamin D3) (Vitamin D3) 2,000 unit Tablet Active 2000 UNIT PO Daily December 05, 2017 11:00pm take 1 tablet by mouth in the mo rning cholecalciferol (Vitamin D-3) 50 MCG (1999 UT) capsule Take 1 tablet by mouth in the morning. Active cholecalciferol, vitamin D3, (D3-50 CHOLECALCIFEROL ORAL) (14 sources) take 1 tablet by mouth in the morning cholecalciferol, vitamin D3, (D3-50 CHOLECALCIFEROL ORAL) Take 1 tablet by mouth in the morning. take 1 tablet by mouth in the mo rning cholecalciferol, vitamin D3, (D3-50 CHOLECALCIFEROL ORAL) Take 1 tablet by mouth in the morning. Suspended take 1 tablet by mouth in the mo rning cholecalciferol, vitamin D3, (D3-50 CHOLECALCIFEROL ORAL) Take 1 tablet by mouth in the morning. Active ciprofloxacin 500 mg oral tablet (2 sources) Quinolone Antimicrobial Start: 02-19-2022 End: 11-16-2023 take 1 tablet by mouth every twelve hours Ciprofloxacin HCl 500 MG 1 tablet Orally every 12 hrs for 7 day(s) Feb, Active clopidogrel 75 mg oral tablet (20 sources) P2Y12 Platelet Inhibitor Start: 04-01-2023 take 1 tablet by mouth in the [...] as needed. 05/03/2023 Active Start: 04-26-2023 Estradiol 0.01 % (0.1 mg/gram) cream Active 0 .ROUTE .COMPLEX 42.5 April 26, 2023 9:03am INSERT 1 GRAM VAGINALLY TWICE WEEKLY DIRECTED Start: 04-26-2023 Estradiol Acti ve 0 .ROUTE .COMPLEX 42.5 April 26, 2023 10:03am INSERT 1 GRAM VAGINALLY TWICE WEEKLY DIRECTED Start: 06-14-2022 End: 04-26-2023 Estradiol 0.01 % (0.1 mg/gra m) cream Discontinued 1 GM VAGINAL Twice a Week April 15, 2023 12:00am April 26, 2023 9:03am FreeTextSi gram as directed Vaginal Two times [...] Orally daily for 7 days Mar, Active gabapentin 100 mg oral capsule (2 sources) Anti-epileptic Agent Start: 02-21-2024 take 1 capsule by mouth three times daily Gabapentin 100 mg capsule Active 100 MG PO Three times daily February 21, 2024 12:00am Start: 01-02-2024 take 100 mg by mouth three times daily 100 mg, oral, 3 times daily, First dose on 01/02/24 at 1700, Look-alike/sound-alike medication - verify indication for use. glucagon (rdna) 1 mg injection (1 source) Antihypoglycemic Agent Start: 01-01-2024 1 mg, i ntramuscular, As needed, low blood sugar, blood glucose less than 70 mg/dL and unconscious or NPO without IV access., Starting on 01/01/24 at 1858, If conscious and not NPO, immediately follow with meal tray or high protein (7Grams) snack if tray not available. If NPO, initiate IV 5% Dextrose/Water at 100 mL/hr and contact prescriber for additional orders. If blood glucose is not greater than 70 mg/dL after initial treatment, repeat treatment. 50 ml glucose 500 mg/ml prefilled syringe (3 sources) Start: 01-04-2024 25 g, intraven ous, Once as needed, low blood sugar, as needed for Pre-insulin glucose level 150-250 mg/dL, Starting on 01/04/24 at 0909, For 1 dose, VESICANT (RED) Warning: HYPERTONIC solution. Start: 01-01-2024 15 g, oral, As needed, low blood sugar, blood glucose less than 70 mg/dL, Starting on 01/01/24 at 1858, If patient conscious and taking PO. If blood glucose is not greater than 70 mg/dL after initial treatment, repeat treatment. Start: 01-01-2024 25 mL, intrave nous, As needed, low blood sugar, blood glucose less than 70 mg/dL and unconscious or NPO with IV access, Starting on 01/01/24 at 1858, Push over 1-3 minutes STAT. If conscious and not NPO, immediately follow with meal tray or high protein (7 grams) snack if tray not available. If NPO, initiate 5% dextrose in water at 100 mL/hr and contact prescriber for additional orders. If blood glucose is not greater than 70 mg/dL after initial treatment, repeat treatment. VESICANT (RED) Warning: HYPERTONIC solution. 1 ml hydrALAZINE hydrochloride 20 mg/ml injection (2 sources) Arteriolar Vasodilator Start: 01-02-2024 take 20 mg intravenously every six hours as needed 20 mg, intravenous, Every 6 hours PRN, high blood pressure, Starting on 01/02/24 at 0225, For systolic blood pressure greater than 160 mmHg, hold for HR>100 Look-alike/sound-alike medication - verify indication for use. Administer IV doses as a slow IV push; maximum rate: 5 mg/minute. Start: 01-01-2024 End: 01-02-2024 take 10 mg intravenously every six hours as needed 10 mg, intravenous, Every 6 hours PRN, high blood pressure, Starting on 01/01/24 at 1922, For systolic blood pressure greater than 160 mmHg, hold for HR>100 Look-alike/sound-alike medication - verify indication for use. Administer IV doses as a slow IV push; maximum rate: 5 mg/minute. L. Acidophilus/Bifid. Animal is (Daily Probiotic) 2.5 billion cell capsule (3 sources) Start: 04-15-2023 Start: 04-15-2023 labetalol hydrochloride 5 mg/ml injectable solution (1 source) beta-Adrenergic Daryl Start: 01-02-2024 take 20 mg intravenously every six hours as needed 20 mg, intravenous, Every 6 hours PRN, high blood pressure, Starting on 01/02/24 at 0136, For systolic blood pressure greater than 160 mmHg, hold for HR lactobacillus acidophilus [id number] unt oral tablet (2 sources) take 1 tablet by mouth every twelve hours Lactobacillus - 1 tablet twice a day Active lactobacillus acidophilus 0.05 mg / lactobacillus bulgaricus 0.05 mg oral tablet (4 sources) take 1 tablet by mouth every twelve hours Lactobacillus - 1 tablet twice a day Active lactobacillus acidophilus [id number] unt / pectin 100 mg oral tablet (12 sources) take 1 tablet by mouth once daily at breakfast acidophilus-pecti n, citrus 25 million cell -100 mg tablet Take 1 tablet by mouth daily with breakfast. Active Magnesium (6 sources) Magnesium 400 MG 1 tablet twice a day Active magnesium oxide 400 mg oral tablet (3 sources) take 1 tablet by mouth every twenty-four hours Magnesium Oxide 400 MG 1 tablet as needed Orally Once a day Active magnesium sulfate IVPB 2000 mg/50 mL in iso-osmotic water (40 mg/mL premix) (1 source) Start: 01-01-2024 magnesium sulfate IVPB 2000 mg/50 mL in iso-osmotic water (40 mg/mL premix) melatonin 3 mg oral tablet (20 sources) Start: 02-21-2024 take 2 capsules by mouth once daily at bedtime Melatonin 3 mg capsule Active 6 MG PO Daily at bedtime February 21, 2024 12:00am take 1 tablet by mouth once macy y melatonin 10 mg tablet Take 1 tablet by mouth nightly. Active menthol 0.04 mg/mg topical gel (6 sources) Menthol, Topical Analgesic, (Biofreeze) 4 % gel Biofreeze Active methocarbamol 500 mg oral tablet (1 source) Muscle Relaxant Start: 01-06-20 End: 01-09-20 24 take 500 mg by mouth three times daily 500 mg, oral, 3 times daily, First dose on Akiko 01/06/24 at 1730, For 3 days metroNIDAZOLE 500 mg oral tablet (8 sources) [...] Active Multiple Vitamins-Minerals (multivitamin with minerals) tablet (6 sources) take 1 tablet by mouth in the morning Multiple Vitamins-Minerals (multivitamin with minerals) tablet Take 1 tablet by mouth in the morning. Active Multivitamin (Daily Multi-Vitamin) tablet (4 sources) Start: 03-23-2024 take 1 tablet by mouth once daily Multivitamin (Daily Multi-Vitamin) tablet Active 1 TAB PO Daily March 23, 2024 12:00am Start: 04-15-2023 End: 02-21-2024 take 1 tablet by mouth once daily Multivitamin (Daily Multi-Vitamin) tablet Discontinued 1 TAB PO Daily April 15, 2023 12:00am February 21, 2024 1:32pm Start: 04-15-2023 take 1 tablet by ad once daily Multivitamin (Daily Multi-Vitamin) tablet Active 1 TAB PO Daily April 15, 2023 1:00am Multivitamin preparation (7 sources) Start: 05-19-2022 multivitamin D aily, Refill(s) 0 Start Date: 05/19/22 Status: Ordered naloxone (NARCAN) 4 mg/actua tion spray,non-aerosol nasal spray (10 sources) Start: 11-19-2023 naloxone (NARC AN) 4 mg/actuation spray,non-aerosol nasal spray Administer 1 spray (4 mg total) into alternating nostrils as needed for opioid reversal for up to 2 doses. 2 each 11/19/2023 Start: 11-19-2023 naloxone (NARC AN) 4 mg/actuation spray,non-aerosol nasal spray Administer 1 spray (4 mg total) into alternating nostrils as needed for opioid reversal for up to 2 doses. 2 each 11/19/2023 Suspended Start: 11-19-2023 naloxone (NARC AN) 4 mg/actuation spray,non-aerosol nasal spray Administer 1 spray (4 mg total) into alternating nostrils as needed for opioid reversal for up to 2 doses. 2 each 11/19/2023 Active Nature's Bounty Probiotic (4 sources) Start: 01-26-2023 Nature's Bount y Probiotic Oral, Daily Start Date: 01/26/23 Status: Ordered nebivolol 5 mg oral tablet (13 sources) Start: 11-09-2023 take 2 tablets by mouth in the morning nebivoloL (BYSTOLIC) 5 mg tablet Indications: hypertension Take 2 tablets (10 mg total) by mouth in the morning. Indications: high blood pressure. 11/09/2023 Active Start: 11-09-2023 End: 02-21-2024 take 1 tablet by mouth once daily Nebivolol 5 mg tablet Discontinued 5 MG PO Daily November 21, 2023 11:00pm February 21, 2024 1:35pm nitrofurantoin, macrocrystals 25 mg / nitrofurantoin, monohydrate 75 mg oral capsule (3 sources) Nitrofuran Antibacterial Start: 05-19-2022 take 1 mg by mouth twice daily Macrobid 100 mg Cap mg cap(s), Oral, BID, Refills(s) 0 Start Date: 05/19/22 Status: Ordered Start: 05-14-2022 take 1 capsule by [facility] every twelve hours Macrobid 100 MG 1 capsule with food Orally every 12 hrs for 7 days May, Active oxyCODONE (6 sources) Opioid Agonist Start: 01-02-2024 take 1 tablet by mouth every four hours as needed for pain oxyCODONE (ROXICODONE) immediate release tablet 5 mg Start: 01-01-2024 End: 01-02-2024 take 1 tablet by mouth every six hours as needed for pain 5 mg, oral, Every 6 hours PRN, moderate pain - pain scale 4-6, Starting on 01/02/24 at 0410, Look-alike/sound-alike medication - verify indication for use. Immediate release. 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 Max Daily Amount: 20 mg 4 tablet 11/19/2023 12/24/2023 Discontinued (Therapy completed) pantoprazole 40 mg delayed release oral tablet (20 sources) Proton Pump Inhibitor Start: 01-06-2024 40 mg, oral, Every m orning before breakfast, First dose on Akiko 01/06/24 at 1745, Look-alike/sound-alike medication - verify indication for use. If patient is receiving enteral feeding, consider alternative PPI or continue IV pantoprazole until the delayed-release tablet can be taken orally, Indication: GERD Start: 05-21-2023 End: 08-09-2023 take 1 tablet by mouth once daily Pantoprazole 20 mg tablet,delayed release (DR/EC) Active 20 MG PO Daily August 08, 2023 11:00pm Start: 11-04-2021 pantoprazole ( PROTONIX) 40 mg EC tablet Indications: gastroesophageal reflux disease Take 20 mg by mouth in the morning. Indications: gastroesophageal reflux disease. 11/04/2021 Active Start: 11-04-2021 End: 05-21-2023 take 1 tablet by mouth once daily Pantoprazole 40 mg tablet,delayed release (DR/EC) Discontinued 1 TAB PO Daily April 15, 2023 12:00am May 21, 2023 9:16am FreeTextSig: TAKE 1 TABLET BY MOUTH ONCE DAILY; Note: Source Status: Taking; Refills: 3; Qty: 90 Tablet; Provider: Manny Harrison ( ) polyethylene glycol 3350 99163 mg powder for oral solution (1 source) Osmotic Laxative Start: 01-06-2024 17 g, oral, Daily, First dose (after last modification) on [place] 01/06/24 at 1745, Hold for loose stool Look-alike/sound-alike medication - verify indication for use. Dissolve 1 packet (17 gm) in 8 ounces of water, juice, soda, coffee or tea. Potassium Chloride (1 source) Start: 01-01-2024 potassium chloride (K-TAB,KLOR-CON) CR tablet 20-50 mEq potassium chloride IVPB 10 mEq/50 mL in water (0.2 mEq/mL premix) (1 source) Start: 01-01-2024 potassium chloride IVPB 10 mEq/50 mL in water (0.2 mEq/mL premix) prostat (1 source) Start: 02-21-2024 prostat Active PO Twice daily February 21, 2024 12:00am rivaroxaban 2.5 mg oral tablet (7 sources) Factor Xa Inhibitor Start: 01-02-2024 take 1 tablet by mouth in the morning, then take 1 tablet by mouth at bedtime rivaroxaban (XARELTO) 2.5 mg tablet Take 1 tablet (2.5 mg total) by mouth in the morning and 1 tablet (2.5 mg total) before bedtime. 60 tablet 3 01/02/2024 Active simvastatin 40 mg oral tablet (20 sources) HMG-CoA Reductase Inhibitor Start: 08-24-2023 take 1 tablet by mouth once daily Simvastatin 40 mg tablet Active 40 MG PO Daily August 23, 2023 11:00pm Start: 08-23-2023 End: 08-24-2023 take 2 tablets by mouth once daily Simvastatin 40 mg tablet Discontinued 80 MG PO Daily August 23, 2023 12:18pm August 24, 2023 12:49pm Start: 05-10-2023 End: 08-23-2023 take 1 tablet by mouth once daily Simvastatin 40 mg tablet Discontinued 0 .ROUTE .COMPLEX 90 May 10, 2023 3:20pm August 23, 2023 12:19pm TAKE 1 TABLET BY MOUTH DAILY Start: 12-06-2017 End: 05-10-2023 take 1 tablet by mouth once daily in the evening Simvastatin 40 mg Tablet Discontinued 40 MG PO Every evening December 05, 2017 11:00pm May 10, 2023 3:20pm sodium phosphate 20 mmol in sodium chloride 0.9 % 250 mL IVPB (1 source) Start: 01-01-2024 sodium phosphate 20 mmol in sodium chloride 0.9 % 250 mL IVPB spironolactone 50 mg oral tablet (20 sources) Aldosterone Antagonist Start: 10-13-2023 take 1 tablet by mouth once daily Spironolactone 50 mg tablet Active 0 .ROUTE .COMPLEX October 13, 2023 12:25pm TAKE 1 TABLET BY MOUTH ONCE DAILY Start: 08-18-2023 End: 10-13-2023 take 1 tablet by mouth once daily Spironolactone 50 mg tablet Discontinued 50 MG PO Daily August 18, 2023 9:01am October 13, 2023 12:25pm FreeTextSi tablet Orally Once a day; Note: Source Status: Taking; Provider: Lisandro Olvera Start: 05-14-2022 End: 08-18-2023 take 1 tablet by mouth once daily Spironolactone 25 mg tablet Discontinued 25 MG PO Daily April 15, 2023 12:00am August 18, 2023 9:02am FreeTextSi tablet Orally Once a day; Note: Source Status: Taking; Provider: Lisandro Olvera take 2 tablets by [facility] in the morning spironolactone (ALDACTONE) 25 mg tablet Indications: hypertension [...] take [address] [facility] once daily Vitamin D 1000 UNIT 1 [...] [facility] zinc 50 mg tablet tablet Take 1 tablet (50 mg total) by mouth in the morning. take 1 tablet by mouth in the [place] [facility] zinc 50 mg tablet tablet Take 1 tablet (50 mg total) by mouth in the morning. Suspended take 1 tablet by mouth in the mo rning zinc 50 MG tablet Take 50 mg by mouth in the morning. Active take 1 tablet by mouth in the mo rning zinc 50 mg tablet tablet Take 1 tablet (50 mg total) by mouth in the morning. Active Zinc Active zinc acetate 50 mg oral capsule (1 source) Start: 03-23-2024 take 1 capsule by mouth once daily Zinc Acetate (Galzin) 50 mg (zinc) capsule Active 50 MG PO Daily March 23, 2024 12:00am Completed/Discontinued Medications Medication Drug Class(es) Dates Sig (Normalized) Sig (Original) acetaminophen 300 mg / codeine phosphate 60 mg oral tablet (6 sources) Opioid Agonist End: 12-24-2023 take 1 tablet by mouth every six hours as needed for pain acetaminophen-codei ne (TYLENOL with CODEINE #4) 300-60 mg per tablet Indications: pain Take 1 tablet by mouth every 6 (six) hours as needed for pain Indications: pain. 12/24/2023 Discontinued (Therapy completed) take 1 tablet by ad th every four hours as needed for pain acetaminophen-codeine (TYLENOL with CODE INE #4) 300-60 mg per tablet Indications: pain Take 1 tablet by mouth every 4 (four) hours as needed for pain Indications: pain. Active alendronic acid 70 mg oral tablet (6 sources) Bisphosphonate Start: 12-06-2017 End: 04-15-2023 take 1 tablet by mouth every week Alendronate 70 mg tablet Discontinued 70 MG PO every week December 05, 2017 11:00pm April 15, 2023 1:36pm alosetron 0.5 mg oral tablet (20 sources) Serotonin-3 Receptor Antagonist Start: 10-03-2021 End: 10-27-2023 take 1 tablet by mouth once daily as needed alosetron (LOTRONEX) 0.5 MG tablet Take 1 tablet (0.5 mg total) by mouth daily as needed. 12/02/2021 10/27/2023 Discontinued (Therapy completed) amylase [id number] unt / lipase [id number] unt / protease [id number] unt delayed release oral capsule (1 source) Start: 06-02-2023 End: 07-07-2023 take 2 capsules by mouth once daily at mealtime, then take 8 capsules by mouth once daily Xabwhx-Nvpkwwff-Vj ylase (Creon) 36,000-114,000- 180,000 unit capsule,delayed release(DR/EC) Discontinued 0 PO Daily 240 June 01, 2023 11:00pm July 07, 2023 9:35am 2 capsules with meals and 1 capsule with snack. orally daily; Please allow for 3 meals daily and two snack. (8 capsules daily) atropine sulfate 0.025 mg / diphenoxylate hydrochloride 2.5 mg oral tablet (10 sources) Anticholinergic, Cholinergic Muscarinic Antagonist, Antidiarrheal Start: 05-01-2022 take 1 tablet by mouth every six hours Lomotil 2.5-0.025 MG 1 tablet as needed Orally Four times a day for 10 days Apr, Not-Taking calcium chloride 0.0014 meq/ml / potassium chloride 0.004 meq/ml / sodium chloride 0.103 meq/ml / sodium lactate 0.028 meq/ml injectable solution (3 sources) Start: 01-01-2024 End: 01-03-2024 take 100 mL intravenously every hour 100 mL/hr, intravenous, Continuous, Starting on Wed01/02/24 at 2230, For 24 hours cefdinir 300 mg oral capsule (10 sources) Cephalosporin Antibacterial Start: 05-01-2022 Cefdinir 300 MG as directed Orally bid for 7 days Apr, Not-Taking cefTRIAXone (ROCEPHIN) 2,000 mg in sodium chloride 0.9 % 50 mL IVPB-MBP (1 source) Start: 01-06-2024 End: 01-07-2024 take 2000 mg intravenously every twenty-four hours 2,000 mg, intravenous, at 100 mL/hr, Administer over 30 Minutes, Every 24 hours, First dose on [place] 01/06/24 at 1045, ADD-VANTAGE/MBP- Discard 8 hours after activating; dissolve drug prior to administration Look-alike/sound-a like medication - verify indication for use. Do not co-administer with calcium-containing solutions such as Lactated Ringers., Indication: UTI Cholestyramine Resin (2 sources) Bile Acid Sequestrant Start: 05-21-2023 End: 07-07-2023 take 1 dose by mouth twice daily Cholestyramine (With Sugar) (Questran) 4 gram powder Discontinued 4 GM PO Twice daily 348.6 May 20, 2023 11:00pm July 07, 2023 9:29am administer w/meal; avoid other meds within 1hr before or 4-6hr after dose Start: 05-21-2023 take 1 dose by mouth twice daily Cholestyramine (With Sugar) (Questran) 4 gram powder Active 4 GM PO Twice daily 348.6 May 21, 2023 12:00am administer w/meal; avoid other meds within 1hr before or 4-6hr after dose collagenase 0.25 unt/mg topical ointment (3 sources) Collagen-specific Enzyme Start: 02-21-2024 End: 03-23-2024 Collagenase Clostridium Histo. (Santyl) 250 unit/gram ointment Discontinued 1 APPLIC TOPICAL Daily February 21, 2024 12:00am March 23, 2024 2:12pm Start: 10-06-2023 End: 11-16-2023 SantyL ointment APPLY DAILY TO WOUND BED FOR 30 DAYS 10/06/2023 11/16/2023 Discontinued (Therapy completed) cranberry preparation 250 mg oral capsule (11 sources) Non-Standardized Food Allergenic Extract, Non-Standardized Plant Allergenic Extract Start: 04-15-2023 End: 04-15-2023 Cranberry Extract 250 mg tablet Discontinued MG PO April 15, 2023 12:00am April 15, 2023 1:38pm Start: 04-15-2023 End: 04-15-2023 Cranberry Extract Discontinu ed MG PO April 15, 2023 1:00am April 15, 2023 2:38pm Cranberry Extrac t Active docusate sodium 100 mg oral capsule (2 sources) Start: 02-21-2024 End: 03-23-2024 take 1 capsule by mouth twice daily Docusate Sodium (Colace) 100 mg capsule Discontinued 100 MG PO Twice daily February 21, 2024 12:00am March 23, 2024 2:12pm Start: 01-05-2024 take 100 mg by mouth once daily 100 mg, oral, Daily, First dose on Wed01/05/24 at 0900, Look-alike/sound-alike medication - verify indication for use. doxycycline hyclate 100 mg oral capsule (1 source) Tetracycline-class Drug Start: 06-01-2022 take 1 capsule by mouth once daily doxycycline hyclate 100 mg Cap 100 mg = 1 cap(s), Oral, Daily, Take 1 pill the day before the procedure and 1 pill after the procedure, # 2 cap(s), Refills(s) 0, Pharmacy: [facility]/pharmacy #[id number], 178, cm, 05/19/22 13:31:00 EDT, Height/Length Dosing, 61, kg, 05/19/22 13:31:00 EDT, Weigh... Start Date: 06/01/22 Status: Ordered 1 ml fentaNYL 0.05 mg/ml injection (1 source) Opioid Agonist Start: 01-01-2024 End: 01-01-2024 25 mcg, intravenous, Every 15 min PRN, severe pain - pain scale 7-10, moderate pain - pain scale 4-6, Starting on 01/01/24 at 1134, For 4 doses, Pre-op, Look-alike/sound-a like medication - verify indication for use. fidaxomicin 200 mg oral tablet (6 sources) Macrolide Antibacterial Start: 04-22-2023 End: 05-21-2023 take 1 tablet by mouth every other day Fidaxomicin (Dificid) 200 mg tablet Discontinued 200 MG PO every other day 11 27April 22, 2023 2:47pm May 21, 2023 8:58am Start: 04-15-2023 End: 04-22-2023 take 1 tablet by mouth every twelve hours Fidaxomicin (Dificid) 200 mg tablet Discontinued 200 MG PO Every 12 hours 27 11April 15, 2023 12:00am April 22, 2023 2:49pm fosfomycin 3000 mg powder fo r oral solution (3 sources) Start: 08-23-2023 End: 11-01-2023 Fosfomycin Tromethamine 3 gr am packet Discontinued 1 PACKET PO Once 1 August 22, 2023 11:00pm November 01, 2023 2:47pm Start: 05-07-2023 End: 05-21-2023 Fosfomycin Tromethamine 3 gr am packet Discontinued 1 PACKET PO Once 1 May 06, 2023 11:00pm May 21, 2023 8:59am Start: 05-07-2023 End: 05-21-2023 Fosfomycin Tromethamine Disc ontinued 1 PACKET PO Once 1 May 07, 2023 12:00am May 21, 2023 9:59am Fosfomycin Tromethamine 3 gr am packet (2 sources) Start: 11-22-2023 End: 03-23-2024 Fosfomycin Tromethamine 3 gr am packet Discontinued 1 PACKET PO Once 1 November 22, 2023 1:10pm March 23, 2024 2:13pm Start: 11-01-2023 End: 11-22-2023 Fosfomycin Tromethamine 3 gr am packet Discontinued 1 PACKET PO Once 1 November 01, 2023 2:46pm November 22, 2023 1:10pm 500 ml heparin sodium, porcine 50 unt/ml injection (1 source) Unfractionated Heparin, Anti-coagulant Start: 01-02-2024 End: 01-03-2024 500 Units/hr (10 mL/hr), intravenous, Continuous, Starting on 01/02/24 at 0345, 500 flat rate Monitor for signs of bleeding. Look-alike/sound-alike medication - verify indication for use., Indication: Other, Other Indication: PAD, INITIAL Infusion Dose (Units/hr): 500 units/hr hydroCHLOROthiazide 12.5 mg / losartan potassium 50 mg oral tablet (6 sources) Thiazide Diuretic, Angiotensin 2 Receptor Daryl Start: 12-06-2017 End: 04-15-2023 take 1 tablet by mouth once daily Losartan-Hydrochlorothi azide 50-12.5 mg tablet Discontinued 1 TAB PO Daily December 05, 2017 11:00pm April 15, 2023 1:38pm 0.5 ml HYDROmorphone hydrochloride 1 mg/ml prefilled syringe (2 sources) Opioid Agonist Start: 01-03-2024 End: 01-03-2024 take 0.5 mg intravenously once 0.5 mg, intravenous, Once, On 01/03/24 at 0830, For 1 dose, If IV push, administer over over 2 to 3 minutes. Look-alike/sound-alike medication - verify indication for use. Start: 01-02-2024 take 0.5 mg intraven ously every two hours as needed 0.5 mg, intravenous, Every 2 hour PRN, Breakthrough, Starting on 01/02/24 at 2225, If IV push, administer over over 2 to 3 minutes. Look-alike/sound-alike medication - verify indication for use. sodium hypochlorite 1.25 mg/ml topical solution (7 sources) Start: 11-03-2023 End: 01-01-2024 H-CHLOR 12 0.125 % solution external solution APPLY TO RIGHT LOWER LEG WOUND DAILY 11/03/2023 01/01/2024 Discontinued (Therapy completed) Iron (6 sources) Iron Not-Taking levoFLOXacin 250 mg oral tablet (1 source) Quinolone Antimicrobial Start: 08-11-2023 End: 08-18-2023 take 1 tablet by mouth once daily Levofloxacin 250 mg tablet Discontinued 250 MG PO Daily 5 5 August 10, 2023 11:00pm August 18, 2023 8:33am loperamide hydrochloride 2 mg oral capsule (20 sources) Opioid Agonist Start: 05-21-2023 End: 08-18-2023 take 1 capsule by mouth four times daily as needed Loperamide (Imodium A-D) 2 mg capsule Discontinued 2 MG PO Four times daily as needed May 20, 2023 11:00pm August 18, 2023 8:33am Start: 09-22-2022 take 1 mg by mouth once Imodiu m A-D mg, Oral, Refills(s) 0 Start Date: 09/22/22 Status: Ordered Start: 09-22-2022 End: 10-27-2023 loperamide HCl (IMODIUM A-D ORAL) Take by mouth. 09/22/2022 10/27/2023 Discontinued (Therapy completed) Start: 09-22-2022 loperamide HCl (IMODIUM A-D ORAL) Take by mouth. 09/22/2022 Active Start: 12-06-2017 End: 04-15-2023 take 1 capsule by mouth once daily Loperamide 2 mg capsule Discontinued 2 MG PO Daily December 05, 2017 11:00pm April 15, 2023 1:38pm take 1 tablet by ad th once as needed loperamide (IMODIUM A-D) 2 mg tablet Take 2 tablets (4 mg total) by mouth as needed. Active loperamide (Imod ium A-D) 2 MG tablet Take by mouth 4 (four) times a day as needed for diarrhea. Active Imodium A-D prn Active Imodium A-D Acti ve 1 ml methylPREDNISolone acetate 40 mg/ml injection (4 sources) Corticosteroid Start: 02-28-2024 End: 02-28-2024 methylPREDNISolone acetate (DEPO-Medrol) injection 40 mg Start: 02-28-2024 End: 02-28-2024 40 mg, Intra-articular, Once PRN Procedure, Starting on Wed02/28/24 at 1532, For 1 dose 24 hr metoprolol succinate 50 mg extended release oral tablet (20 sources) beta-Adrenergic Daryl Start: 09-02-2023 End: 11-22-2023 take 1 tablet by mouth once daily Metoprolol Succinate 50 mg tablet extended release 24 hr Discontinued 0 .ROUTE .COMPLEX 90 September 02, 2023 10:40am November 22, 2023 12:57pm TAKE 1 TABLET BY MOUTH DAILY Start: 08-17-2023 End: 09-02-2023 take 1 tablet by mouth once daily Metoprolol Succinate 50 mg tablet extended release 24 hr Discontinued 50 MG PO Daily August 16, 2023 11:00pm September 02, 2023 10:40am Start: 04-15-2023 End: 05-21-2023 Metoprolol Succinate (Toprol Xl) 25 mg tablet extended release 24 hr Discontinued 50 MG PO Daily April 15, 2023 9:04am May 21, 2023 8:59am Start: 05-19-2022 metoprolol Ref ills(s) 0 Start [...] Hr Discontinued 25 MG PO Daily December 05, 2017 11:00pm April 15, 2023 9:04am Metoprolol Succi fantasma ER 50 MG TAKE 1 TABLET DAILY Active take 1 tablet by ad th every twelve hours Metoprolol Tartrate 50 MG 1 tablet with food Orally Twice a day Active Metoprolol Tartr ate Active mupirocin 0.02 mg/mg topical ointment (8 sources) RNA Synthetase Inhibitor Antibacterial Start: 08-30-2023 End: 01-01-2024 mupirocin (BACTROBAN) 2 % ointment APPLY TO LEG WOUND DAILY 08/30/2023 01/01/2024 Discontinued (Therapy completed) niCARdipine (CARDENE) infusion 25 mg/50 mL in sodium chloride 0.9% (0.5 mg/mL cmpd premix) (1 source) Start: 01-02-2024 End: 01-03-2024 5-15 mg/hr (10-30 mL/hr), intravenous, Continuous, Starting on 01/02/24 at 0415, Start at 5 mg/hr. Titrate by 2.5 mg/hr every 5 minutes to achieve (SBP 160). Max dose 15 mg/hr. Central line administration preferred. If central line access is not immediately available, only administer through a large peripheral vein (placement of a central line recommended if local site reaction occurs). Peripheral venous irritation may be minimized by changing the site of infusion every 12 hours. Look-alike/sound-a like medication. Verify indication for use. Do not combine or run in the same line as other medications. ondansetron 4 mg oral tablet (10 sources) Serotonin-3 Receptor Antagonist Start: 05-01-2022 take 1 tablet by mouth three times daily as needed Ondansetron HCl 4 MG 1 tablet Orally tid prn for 10 days Apr, Not-Taking Psyllium (6 sources) Metamucil Not-Taking 1000 ml sodium chloride 9 mg/ml injection (1 source) Start: 01-01-2024 End: 01-03-2024 3 mL/hr, intra-arterial, Continuous, Starting on 01/01/24 at 1945, For 5 days sodium zirconium cyclosilicate 42632 mg powder for oral suspension (1 source) Start: 01-03-2024 End: 01-03-2024 10 g, oral, Once, On 01/03/24 at 1100, For 1 dose, Empty entire contents of the packet(s) into a glass with 3 tablespoons (45 mL) or more water. Stir well and drink immediately; if powder remains in the glass, add water, stir and drink immediately; repeat until no powder remains. Administer other oral medications 2 or more hours before or 2 hours after dose. sucralfate 100 mg/ml oral suspension (10 sources) Aluminum Complex take 10 mL by mouth twice daily Sucralfate 1 GM/10ML 10 mL on an empty stomach Orally Twice a day Not-Taking traMADol hydrochloride 50 mg oral tablet (10 sources) Opioid Agonist Start: 01-21-2024 End: 03-23-2024 take 1 tablet by mouth once daily at bedtime as needed for pain Tramadol 50 mg tablet Discontinued 50 MG PO Daily at bedtime as needed for pain March 13, 2024 10:25am March 23, 2024 2:14pm traMADol HCl Not -Taking vancomycin 125 mg oral capsule (20 sources) Glycopeptide Antibacterial Start: 11-22-2023 End: 03-23-2024 Vancomycin 125 mg capsule Discontinued 125 MG PO As Directed November 22, 2023 1:11pm March 23, 2024 2:14pm take 125 mg po qday for 3 days then off for 3 days; repeat for 4 weeks. Start: 11-22-2023 End: 11-22-2023 take 1 capsule by mouth four times daily Vancomycin 125 mg capsule Discontinued 125 MG PO As Directed November 21, 2023 11:00pm November 22, 2023 1:12pm take 125 mg 4 times per day for 10 days; 2 times per day for 7 days; once daily for 7 days; once every 2-3 days for 2-8 weeks Start: 01-26-2023 End: 04-22-2023 take 1 capsule by mouth four times daily Vancomycin 125 mg capsule Discontinued 125 MG PO Four times daily April 12, 2023 12:00am April 22, 2023 2:48pm Start: 01-26-2023 take 1 capsule by [facility] every six hours Vancomycin HCl 125 MG 1 capsule Orally every 6 hrs for 14 days Mar, Active Start: 01-26-2023 Vancomycin HCl 250 MG 1 capsule four times a day for 14 days, then 1 capsule twice a day for 14 days Orally as directed for 28 days PLEASE CHECK ALLERGIES Jan, Active Start: 01-26-2023 take 1 capsule by [facility] every twenty-four hours Vancomycin HCl 250 [...] abdominal pain] Episodic Chronic ulcer of skin (20 sources) Non-pressure chronic ulcer of other part of right lower leg limited to breakdown of skin; Translations: [Non-pressure chronic ulcer of other part of left lower leg limited to breakdown of skin] Onset: 11-10-2021 11-18-2023 Chronic Complications of surgical procedures or medical care (1 source) Other complications following infusion, transfusion and therapeutic injection, initial encounter Episodic Coronary atherosclerosis and other heart disease (20 sources) Atherosclerotic heart disease of [place] coronary artery without angina pectoris; Translations: [Coronary arteriosclerosis] Onset: 03-03-2022 Chronic Coronary atherosclerosis and other heart disease (1 source) Presence of aortocoronary bypass graft; Translations: [PRESENCE AORTOCORONARY BYPASS GRAFT] Onset: 03-24-2022 Episodic Disorders of lipid metabolism (17 sources) Hyperlipidemia; Translations: [Pure hypercholesterolemia, unspecified] Onset: 03-24-2022 05-14-2022 Chronic Diverticulosis and diverticulitis (20 sources) Diverticulum of large intestine without hemorrhage; Translations: [Diverticulosis of large intestine without perforation or abscess without bleeding] Chronic Esophageal disorders (10 sources) Gastro-esophageal reflux disease without esophagitis; Translations: [Gastroesophageal reflux disease] Onset: 03-24-2022 11-18-2023 Chronic Essential hypertension (20 sources) Hypertensive disorder; Translations: [Essential (primary) hypertension] Onset: 01-15-2022 05-14-2022 Chronic Fluid and electrolyte disorders (2 sources) Dehydration; Translations: [Hyperkalemia] Onset: 11-10-2021 Episodic Gangrene (20 sources) Atherosclerosis of [place] arteries of extremities with gangrene, right leg; Translations: [Critical lower limb ischemia ] Onset: 10-14-2023 02-24-2024 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) Gastric ulcer; Translations: [Gastric ulcer, unspecified as acute or chronic, without hemorrhage or perforation] Onset: 11-10-2021 Chronic Genitourinary symptoms and ill-defined conditions (12 sources) Urge incontinence of urine; Translations: [Urge incontinence] Onset: 11-09-2023 01-27-2023 Chronic Genitourinary symptoms and ill-defined conditions (20 sources) Dysuria; Translations: [Sensation as if bladder still full] Onset: 12-27-2021 Episodic Headache; including migraine (4 sources) Headache; including migraine; Translations: [HEADACHE UNSPECIFIED] Onset: 03-20-2022 Immunity disorders (9 sources) Patient immunocompromised; Translations: [Immunodeficiency, unspecified] Onset: 11-18-2023 11-18-2023 Chronic Immunizations and screening for infectious disease (1 source) Encounter for immunization Episodic Joint disorders and dislocations; trauma-related (15 sources) Derangement of right knee; Translations: [Unspecified internal derangement of right knee] Onset: 11-02-2022 11-02-2022 Chronic Nausea and vomiting (1 source) Nausea [...] LOW LEG SEQ] Onset: 03-03-2022 Episodic Osteoarthritis (20 sources) Unspecified osteoarthritis, unspecified site; Translations: [Osteoarthritis of left hip joint] Onset: 03-24-2022 11-02-2022 Chronic Osteoporosis (1 source) Age-related osteoporosis without current pathological fracture; Translations: [AGE-REL OSTEOPOR W/O CURR PATH FX] Onset: 02-04-2022 Chronic Other aftercare (1 source) Other group home (current) drug therapy; Translations: [OTH SKILLED NURSING CURRENT DRUG THERAPY] Onset: 03-24-2022 Episodic Other aftercare (2 sources) Encounter for therapeutic drug level monitoring; Translations: [Encounter for therapeutic drug level monitoring] Onset: 12-15-2023 Episodic Other circulatory disease (6 sources) Critical lower limb ischemia 02-24-2024 Episodic Other connective tissue disease (1 source) Presence of unspecified artificial hip joint; Translations: [PRESENCE UNS ARTIFICIAL HIP JOINT] Onset: 03-24-2022 Chronic Other connective tissue disease (1 source) Presence of left artificial hip joint; Translations: [PRESENCE LEFT ARTIFICIAL HIP JOINT] Onset: 11-10-2021 Chronic Other connective tissue disease (2 sources) History of repair of hip joint; Translations: [Presence of left artificial hip joint] 12-13-2023 Chronic Other connective tissue disease (1 source) Bicipital tendinitis, right shoulder Episodic Other connective tissue disease (2 sources) Trochanteric bursitis of left hip; Translations: [Trochanteric bursitis, left hip] 12-14-2023 Episodic Other connective tissue disease (2 sources) Bursitis of olecranon of right elbow; Translations: [Olecranon bursitis, right elbow] 02-28-2024 Episodic Other diseases of veins and lymphatics [...] Chronic Other diseases of veins and lymphatics (9 sources) Venous ulcer of lower extremity due [...] 03-27-2021 Chronic Other gastrointestinal disorders (20 sources) Swollen abdomen; [...] Translations: [Fecal urgency] Onset: 05-28-2023 Episodic Other nervous system disorders (1 source) Postoperative pain ; Translations: [Other acute postprocedural pain] 01-21-2024 Episodic Other non-epithelial cancer of skin (1 source) Personal history of other malignant neoplasm of skin; Translations: [PERSONAL HX OTH MALIG NEOPLASM SKIN] Onset: 03-24-2022 Episodic Other non-traumatic joint disorders (2 sources) Pain in left knee; Translations: [Pain in joint, lower leg] 02-28-2024 Episodic Other nutritional; endocrine; and metabolic disorders (10 sources) Hypercalcemia; Translations: [Hypercalcemia] Onset: 11-09-2023 11-18-2023 [...] and visceral atherosclerosis (20 sources) Atherosclerosis of lumbee arteries of right leg with ulceration of other part of lower leg; Translations: [Atherosclerosis of lumbee arteries of left leg with ulceration of [...] LOWER EXTRIMITY WITH GANGRENE RIGHT Onset: 11-05-2023 Unclassified (1 source) Venous ulcer of ankle, right ([facility]) [I83.013, L97.319] Onset: 12-24-2023 Viral infection (2 sources) COVID-19; Translations: [COVID-19] [...] Translations: [NUTRITIONAL ANEMIA UNSPECIFIED] Onset: 01-19-2022 Episodic Deficiency and other anemia (10 sources) Anemia; Translations: [Anemia, unspecified] Onset: 11-09-2023 11-18-2023 Episodic Fracture of neck of femur (hip) (15 sources) Closed fracture of neck of femur; Translations: [Fracture of unspecified part of neck of unspecified femur, initial encounter for closed fracture] Onset: 06-07-2017 11-02-2022 Episodic Gastritis and duodenitis (1 source) Gastritis, unspecified, without bleeding; Translations: [GASTRITIS UNS WITHOUT BLEEDING] Onset: 11-10-2021 Episodic Gastrointestinal hemorrhage (2 sources) Melena; Translations: [Gastrointestinal hemorrhage, unspecified] Onset: 11-10-2021 Episodic Intestinal infection (20 sources) Enterocolitis due to Clostridium difficile, not specified as recurrent; Translations: [Clostridium difficile colitis] Onset: 11-09-2023 Episodic Malaise and fatigue (4 sources) Weakness; Translations: [WEAKNESS] Onset: 11-02-2021 Episodic Mood disorders (9 sources) Mood disorders Onset: 11-18-2023 11-18-2023 Other aftercare (1 source) FPC (current) 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; 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] Onset: 11-10-2021 Episodic Other aftercare (9 sources) Patient encounter status; Translations: [Encounter for therapeutic drug level monitoring] Onset: 12-15-2023 12-15-2023 Episodic Other connective tissue disease (15 sources) Bursitis of left hip; Translations: [Other bursitis of hip, left hip] Onset: 11-02-2022 11-02-2022 Episodic Other connective tissue disease (15 sources) Full thickness rotator cuff tear; Translations: [Complete rotator cuff tear or rupture of right shoulder, not specified as traumatic] Onset: 11-02-2022 11-02-2022 Episodic Other diseases of veins and lymphatics (1 source) Venous insufficiency (chronic) (peripheral); Translations: [VENOUS INSUFF CHRONIC PERIPHERAL] Onset: 11-10-2021 Episodic Other diseases of veins and lymphatics (10 sources) Peripheral venous insufficiency; Translations: [Venous insufficiency (chronic) (peripheral)] Onset: 11-11-2022 11-18-2023 Episodic Other gastrointestinal disorders (20 sources) Diarrhea; Translations: [Diarrhea, unspecified] Onset: 11-09-2023 04-06-2023 Episodic Other nervous system disorders (15 sources) Finding related to ability to move; Translations: [Other abnormalities of gait and mobility] Onset: 11-02-2022 11-02-2022 Episodic Other skin disorders (9 sources) Ingrowing nail; Translations: [Ingrowing nail] Onset: 11-18-2023 11-18-2023 Episodic Unclassified (7 sources) Finding of sensation of bladder 05-19-2022 Unclassified (1 source) CONTACT W/AND (SUSP) EXPOS COVID-19; Translations: [CONTACT W/AND (SUSP) EXPOS COVID-19] Onset: 08-12-2021 Urinary tract infections (20 sources) Acute cystitis without hematuria; Translations: [Urinary tract infection, site not specified] Onset: 03-24-2022 Episodic Varicose veins of lower extremity (20 sources) 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; Translations: [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] Onset: 10-14-2023 10-14-2023 Episodic Results Test Name Value Interpretation Reference Range Facility Office Visiton 03-02-2024 Follow-up visit [id number] [facility]suDeli[facility] persaud Jean Carlos 1935 F Date Provider Department Center 03/02/2024 271-ROMAINE, MIESHA CARD [facility] Family History Problem Relation Age of Onset Aneurysm Mother Heart attack Father Family Status - Relation Status Age at Mother Father Level of Service:56529 [place] OFFICE/OUTPATIENT ESTABLISHED LOW MDM 20 MIN Normal [facility] No Panel Informationon 02-27 Sunny Ingram, GENESIS 02/28/2024 3:34 PM L Inj/Asp: L knee on 02/28/2024 3:32 PM Indications: pain Details: 21 G needle, anterolateral approach Medications: 40 mg methylPREDNISolone acetate 40 MG/ML Outcome: tolerated well, no immediate complications Site was cleaned with isopropyl alcohol Procedure, treatment alternatives, risks and benefits explained, specific risks discussed. Consent was given by the patient. 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 Subchondral sclerosis was noted at the medial joint line surfaces as well as the patellofemoral joint. Marginal osteophytic formation was noted medially on poles of patella. There is no evidence of fracture or dislocation. 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 [employer] [facility] Radiology Study observation (narrative) [facility] BASIC METABOLIC PANLon 01-06 Anion gap [Moles/Vol] 8 mmol/L Normal 5-15 [facility] Comment on above: Performed By: #### C BC, BMP #### [facility] ([id number]) [address] [place] [address] Calcium [Mass/Vol] 8.9 mg/dL Normal 8.5-10.5 [facility] Comment on above: Performed By: #### C BC, BMP #### [facility] ([id number]) [address], [address] [place] [address] Chloride [Moles/Vol] 99 mmol/L Normal 98-109 [facility] Comment on above: Performed By: #### C BC, BMP #### [facility] ([id number]) [address], [address] [place] [address] CO2 [Moles/Vol] 28 mmol/L Normal 22-32 [facility] Comment on above: Performed By: #### C TANYA, BMP #### [facility] ([id number]) [address], [address] [place] [address] Creatinine [Mass/Vol] 0.86 mg/dL Normal 0.40-1.00 [facility] Comment on above: Result Comment: METH OD TRACEABLE TO IDMS STANDARD Performed By: #### C TANYA, BMP #### [facility] ([id number]) [address], [address] [place] [address] GFR/1.73 sq M.predicted among non-blacks MDRD (S/P/Bld) [Vol rate/Area] 65 mL/min/{1.73_m2} Normal >59 [facility] Comment on above: Result Comment: Reported eGFR is based on the CKD-EPI 2020 equation that does not use a race coefficient. Performed By: #### C TANYA, BMP #### [facility] ([id number]) [address], [address] [place] [address] Glucose [Mass/Vol] 93 mg/dL Normal 65-99 [facility] Comment on above: Performed By: #### Jeny MARTÍNEZ, BMP #### [facility] ([id number]) [address], [address] [place] [address] Potassium [Moles/Vol] 3.9 mmol/L Normal 3.5-5.0 [facility] Comment on above: Performed By: #### C TANYA, BMP #### [facility] ([id number]) [address], [address] [place] [address] Sodium [Moles/Vol] 135 mmol/L Normal 134-146 [facility] Comment on above: Performed By: #### C TANYA, BMP #### [facility] ([id number]) [address], [address] [place] [address] Urea nitrogen [Mass/Vol] 24 mg/dL Normal 5-27 [facility] Comment on above: Performed By: #### C TANYA, BMP #### [facility] ([id number]) [address], [address] [place] [address] Basic Metabolic Panelon 12-10 Anion gap [Moles/Vol] 8 mmol/L 5 - 15 mmol/L [facility] Calcium [Mass/Vol] 8.9 mg/dL 8.5 - 10. 5 mg/dL [facility] Chloride [Moles/Vol] 99 mmol/L 98 - 10 9 mmol/L [facility] CO2 [Moles/Vol] 28 mmol/L 22 - 32 mmol/L [facility] Creatinine [Mass/Vol] 0.86 mg/dL 0.40 - 1.00 mg/dL [facility] Comment on above: METHOD TRACEABLE TO IDCO STANDARD eGFR (CKD-EPI)non-race dependent 65 - PINF [facility] Comment on above: Reported eGFR is based on the CKD-EPI 2020 equation that does not use a race coefficient. Glucose [Mass/Vol] 93 mg/dL 65 - 99 mg/dL [facility] Potassium [Moles/Vol] 3.9 mmol/L 3.5 - 5.0 mmol/L [facility] Sodium [Moles/Vol] 135 mmol/L 134 - 146 mmol/L [facility] Urea nitrogen [Mass/Vol] 24 mg/dL 5 - 27 mg/dL [facility] CBC AND AUTO DIFFon 01-07-20 ABSOLUTE BASOPHIL 0.1 X10E9/L Normal 0.0-0.2 [facility] Comment on above: Performed By: #### C TANYA, BMP #### [facility] ([id number]) [address] [place] [address] ABSOLUTE NEUTROPHIL 7.3 X10E9/L High 1.5-6.6 [facility] Comment on above: Performed By: #### Jeny MARTÍNEZ, BMP #### [facility] ([id number]) [address] [place] [address] Basophils/100 WBC (Bld) 0.6 % Normal [facility] Comment on above: Performed By: #### C TANYA, BMP #### [facility] ([id number]) [address], [address] [place] [address] Eosinophils (Bld) [#/Vol] 0.0 10*3/uL Normal 0.0-0.4 [facility] Comment on above: Performed By: #### C TANYA, BMP #### [facility] ([id number]) [address], [address] [place] [address] Eosinophils/100 WBC (Bld) 0.5 % Normal [facility] Comment on above: Performed By: #### C TANYA, BMP #### [facility] ([id number]) [address], [facility] [address] [place] [address] Erythrocyte distribution width (RBC) [Ratio] 17.4 % High 11.5-15.0 [facility] Comment on above: Performed By: #### C TANYA, BMP #### [facility] ([id number]) [address], [facility] [address] [place] [address] Hematocrit (Bld) [Volume fraction] 23.7 % Low 35-47 [facility] Comment on above: Performed By: #### C TANYA, BMP #### [facility] ([id number]) [address], [facility] [address] [place] [address] Hemoglobin (Bld) [Mass/Vol] 8.3 g/dL Low 11.7-15.5 [facility] Comment on above: Performed By: #### C TANYA, BMP #### [facility] ([id number]) [address], [facility] [address] [place] [address] Lymphocytes (Bld) [#/Vol] 0.7 10*3/uL Low 1.0-3.5 [facility] Comment on above: Performed By: #### C TANYA, BMP #### [facility] ([id number]) [address], [address] [place] [address] Lymphocytes/100 WBC (Bld) 7.8 % Normal [facility] Comment on above: Performed By: #### C TANYA, BMP #### [facility] ([id number]) [address], [address] [place] [address] MCH (RBC) [Entitic mass] 33.5 pg Normal 27-34 [facility] Comment on above: Performed By: #### C TANYA, BMP #### [facility] ([id number]) [address], [address] [place] [address] MCHC (RBC) [Mass/Vol] 34.9 g/dL Normal 32-36 [facility] Comment on above: Performed By: #### Jeny MARTÍNEZ, BMP #### [facility] ([id number]) [address], [address] [place] [address] MCV (RBC) [Entitic vol] 96 fL Normal 80-100 [facility] Comment on above: Performed By: #### Jeny MARTÍNEZ, BMP #### [facility] ([id number]) [address], [address] [place] [address] Monocytes (Bld) [#/Vol] 1.1 10*3/uL High 0-0.9 [facility] Comment on above: Performed By: #### Jeny MARTÍNEZ, BMP #### [facility] ([id number]) [address], [address] [place] [address] Monocytes/100 WBC (Bld) 11.7 % Normal [facility] Comment on above: Performed By: #### Jeny MARTÍNEZ, BMP #### [facility] ([id number]) [address], [address] [place] [address] Neutrophils/100 WBC (Bld) 79.4 % Normal [facility] Comment on above: Performed By: #### Jeny MARTÍNEZ, BMP #### [facility] ([id number]) [address], [address] [place] [address] Platelet mean volume (Bld) [Entitic vol] 7.4 fL Normal 7-12 [facility] Comment on above: Performed By: #### Jeny MARTÍNEZ, BMP #### [facility] ([id number]) [address], [address] [address] Platelets (Bld) [#/Vol] 326 10*3/uL Normal 150-450 [facility] Comment on above: Performed By: #### Jeny MARTÍNEZ, BMP #### [facility] ([id number]) [address], [address] [address] RBC COUNT 2.47 X10E12/L Low 3.80-5.20 [facility] Comment on above: Performed By: #### Jeny MARTÍNEZ, BMP #### [facility] ([id number]) [address], [address] [address] WBC (Bld) [#/Vol] 9.2 10*3/uL Normal 4.0-11.0 [facility] Comment on above: Performed By: #### Jeny MARTÍNEZ, BMP #### [facility] ([id number]) [address], [address] [address] CBC auto differentialon 12-10 Basophils (Bld) [#/Vol] 0.1 10*3/uL [facility] Basophils/100 WBC (Bld) 0.6 % [facility] Eosinophils (Bld) [#/Vol] 0 10*3/uL [facility] Eosinophils/100 WBC (Bld) 0.5 % [facility] Erythrocyte distribution width (RBC) [Ratio] 17.4 % High 11.5 - 15.0 % [facility] Hematocrit (Bld) [Volume fraction] 23.7 % Low 35 - 47 % [facility] Hemoglobin (Bld) [Mass/Vol] 8.3 g/dL Low 11.7 - 15.5 g/dL [facility] Interpretation and review of laboratory results Abnormal [facility] Lymphocytes (Bld) [#/Vol] 0.7 10*3/uL Low [facility] Lymphocytes/100 WBC (Bld) 7.8 % [facility] MCH (RBC) [Entitic mass] 33.5 pg 27 - 34 pg [facility] MCHC (RBC) [Mass/Vol] 34.9 g/dL 32 - 3 6 g/dL [facility] MCV (RBC) [Entitic vol] 96 fL 80 - 100 fL [facility] Monocytes (Bld) [#/Vol] 1.1 10*3/uL High [facility] Monocytes/100 WBC (Bld) 11.7 % [facility] Neutrophils (Bld) [#/Vol] 7.3 10*3/uL High [facility] Neutrophils/100 WBC (Bld) 79.4 % [facility] Platelet mean volume (Bld) [Entitic vol] 7.4 fL 7 - 12 fL [facility] Platelets (Bld) [#/Vol] 326 10*3/uL [facility] RBC (Bld) [#/Vol] 2.47 10*6/uL Low [facility] WBC corrected for nucl RBC Auto (Bld) [#/Vol] 9.2 [facility] BASIC METABOLIC PANLon 01-05 Anion gap [Moles/Vol] 11 mmol/L Normal 5-15 [facility] Comment on above: Performed By: #### C TANYA, BMP #### [facility] ([id number]) [address], [address] [place] [address] Calcium [Mass/Vol] 8.9 mg/dL Normal 8.5-10.5 [facility] Comment on above: Performed By: #### C BC, BMP #### [facility] ([id number]) [address] [place] [address] Chloride [Moles/Vol] 101 mmol/L Normal 98-109 [facility] Comment on above: Performed By: #### C TANYA, BMP #### [facility] ([id number]) [address], [address] [place] [address] CO2 [Moles/Vol] 24 mmol/L Normal 22-32 [facility] Comment on above: Performed By: #### C TANYA, BMP #### [facility] ([id number]) [address], [address] [place] [address] Creatinine [Mass/Vol] 0.84 mg/dL Normal 0.40-1.00 [facility] Comment on above: Result Comment: METH OD TRACEABLE TO IDMS STANDARD Performed By: #### C TANYA, BMP #### [facility] ([id number]) [address], [address] [place] [address] GFR/1.73 sq M.predicted among non-blacks MDRD (S/P/Bld) [Vol rate/Area] 67 mL/min/{1.73_m2} Normal >59 [facility] Comment on above: Result Comment: Reported eGFR is based on the CKD-EPI 2020 equation that does not use a race coefficient. Performed By: #### C TANYA, BMP #### [facility] ([id number]) [address], [address] [place] [address] Glucose [Mass/Vol] 77 mg/dL Normal 65-99 [facility] Comment on above: Performed By: #### C TANYA, BMP #### [facility] ([id number]) [address], [address] [place] [address] Potassium [Moles/Vol] 4.4 mmol/L Normal 3.5-5.0 [facility] Comment on above: Performed By: #### C TANYA, BMP #### [facility] ([id number]) [address], [address] [place] [address] Sodium [Moles/Vol] 136 mmol/L Normal 134-146 [facility] Comment on above: Performed By: #### C TANYA, BMP #### [facility] ([id number]) [address], [address] [place] [address] Urea nitrogen [Mass/Vol] 20 mg/dL Normal 5-27 [facility] Comment on above: Performed By: #### Jeny MARTÍNEZ, BMP #### [facility] ([id number]) [address], [address] [place] [address] Basic Metabolic Panelon 11- Anion gap [Moles/Vol] 11 mmol/L 5 - 15 mmol/L [facility] Calcium [Mass/Vol] 8.9 mg/dL 8.5 - 10. 5 mg/dL [facility] Chloride [Moles/Vol] 101 mmol/L 98 - 10 9 mmol/L [facility] CO2 [Moles/Vol] 24 mmol/L 22 - 32 mmol/L [facility] Creatinine [Mass/Vol] 0.84 mg/dL 0.40 - 1.00 mg/dL [facility] Comment on above: METHOD TRACEABLE TO [employer]CO STANDARD eGFR (CKD-EPI)non-race dependent 67 - PINF [facility] Comment on above: Reported eGFR is based on the CKD-EPI 2020 equation that does not use a race coefficient. Glucose [Mass/Vol] 77 mg/dL 65 - 99 mg/dL [facility] Potassium [Moles/Vol] 4.4 mmol/L 3.5 - 5.0 mmol/L [facility] Sodium [Moles/Vol] 136 mmol/L 134 - 146 mmol/L [facility] Urea nitrogen [Mass/Vol] 20 mg/dL 5 - 27 mg/dL [facility] CBC AND AUTO DIFFon 01-06-20 ABSOLUTE BASOPHIL 0.0 X10E9/L Normal 0.0-0.2 [facility] Comment on above: Performed By: #### C TANYA, BMP #### [facility] ([id number]) [address], [address] [place] [address] ABSOLUTE NEUTROPHIL 6.7 X10E9/L High 1.5-6.6 [facility] Comment on above: Performed By: #### C TANYA, BMP #### [facility] ([id number]) [address], [address] [place] [address] Basophils/100 WBC (Bld) 0.5 % Normal [facility] Comment on above: Performed By: #### C TANYA, BMP #### [facility] ([id number]) [address], [address] [place] [address] Eosinophils (Bld) [#/Vol] 0.2 10*3/uL Normal 0.0-0.4 [facility] Comment on above: Performed By: #### C TANYA, BMP #### [facility] ([id number]) [address], [address] [place] [address] Eosinophils/100 WBC (Bld) 1.7 % Normal [facility] Comment on above: Performed By: #### C TANYA, BMP #### [facility] ([id number]) [address], [address] [place] [address] Erythrocyte distribution width (RBC) [Ratio] 18.1 % High 11.5-15.0 [facility] Comment on above: Performed By: #### C TANYA, BMP #### [facility] ([id number]) [address], [address] [place] [address] Hematocrit (Bld) [Volume fraction] 25.0 % Low 35-47 [facility] Comment on above: Performed By: #### C TANYA, BMP #### [facility] ([id number]) [address], [address] [place] [address] Hemoglobin (Bld) [Mass/Vol] 8.7 g/dL Low 11.7-15.5 [facility] Comment on above: Performed By: #### C TANYA, BMP #### [facility] ([id number]) [address], [address] [place] [address] Lymphocytes (Bld) [#/Vol] 0.9 10*3/uL Low 1.0-3.5 [facility] Comment on above: Performed By: #### Jeny MARTÍNEZ, BMP #### [facility] ([id number]) [address], [address] [place] [address] Lymphocytes/100 WBC (Bld) 9.9 % Normal [facility] Comment on above: Performed By: #### Jeny MARTÍNEZ, BMP #### [facility] ([id number]) [address], [address] [place] [address] MCH (RBC) [Entitic mass] 33.8 pg Normal 27-34 [facility] Comment on above: Performed By: #### Jeny MARTÍNEZ, BMP #### [facility] ([id number]) [address], [address] [place] [address] MCHC (RBC) [Mass/Vol] 34.6 g/dL Normal 32-36 [facility] Comment on above: Performed By: #### Jeny MARTÍNEZ, BMP #### [facility] ([id number]) [address], [address] [place] [address] MCV (RBC) [Entitic vol] 98 fL Normal 80-100 [facility] Comment on above: Performed By: #### Jeny MARTÍNEZ, BMP #### [facility] ([id number]) [address], [address] [place] [address] Monocytes (Bld) [#/Vol] 1.1 10*3/uL High 0-0.9 [facility] Comment on above: Performed By: #### Jeny MARTÍNEZ, BMP #### [facility] ([id number]) [address], [address] [place] [address] Monocytes/100 WBC (Bld) 12.8 % Normal [facility] Comment on above: Performed By: #### Jeny MARTÍNEZ, BMP #### [facility] ([id number]) [address], [facility] [address] [place] [address] Neutrophils/100 WBC (Bld) 75.1 % Normal [facility] Comment on above: Performed By: #### Jeny MARTÍNEZ, BMP #### [facility] ([id number]) [address], [facility] [address] [place] [address] Platelet mean volume (Bld) [Entitic vol] 7.2 fL Normal 7-12 [facility] Comment on above: Performed By: #### Jeny MARTÍNEZ, BMP #### [facility] ([id number]) [address], [facility] [address] [place] [address] Platelets (Bld) [#/Vol] 300 10*3/uL Normal 150-450 [facility] Comment on above: Performed By: #### Jeny MARTÍNEZ, BMP #### [facility] ([id number]) [address], [facility] [address] [place] [address] RBC COUNT 2.56 X10E12/L Low 3.80-5.20 [facility] Comment on above: Performed By: #### Jeny MARTÍNEZ, BMP #### [facility] ([id number]) [address], [address] [address] WBC (Bld) [#/Vol] 9.0 10*3/uL Normal 4.0-11.0 [facility] Comment on above: Performed By: #### Jeny MARTÍNEZ, BMP #### [facility] ([id number]) [address], [facility] [address] [place] [address] CBC auto differentialon 12-10 Basophils (Bld) [#/Vol] 0 10*3/uL [facility] Basophils/100 WBC (Bld) 0.5 % [facility] Eosinophils (Bld) [#/Vol] 0.2 10*3/uL [facility] Eosinophils/100 WBC (Bld) 1.7 % [facility] Erythrocyte distribution width (RBC) [Ratio] 18.1 % High 11.5 - 15.0 % [facility] Hematocrit (Bld) [Volume fraction] 25 % Low 35 - 47 % [facility] Hemoglobin (Bld) [Mass/Vol] 8.7 g/dL Low 11.7 - 15.5 g/dL [facility] Interpretation and review of laboratory results Abnormal [facility] Lymphocytes (Bld) [#/Vol] 0.9 10*3/uL Low [facility] Lymphocytes/100 WBC (Bld) 9.9 % [facility] MCH (RBC) [Entitic mass] 33.8 pg 27 - 34 pg [facility] MCHC (RBC) [Mass/Vol] 34.6 g/dL 32 - 3 6 g/dL [facility] MCV (RBC) [Entitic vol] 98 fL 80 - 100 fL [facility] Monocytes (Bld) [#/Vol] 1.1 10*3/uL High [facility] Monocytes/100 WBC (Bld) 12.8 % [facility] Neutrophils (Bld) [#/Vol] 6.7 10*3/uL High [facility] Neutrophils/100 WBC (Bld) 75.1 % [facility] Platelet mean volume (Bld) [Entitic vol] 7.2 fL 7 - 12 fL [facility] Platelets (Bld) [#/Vol] 300 10*3/uL [facility] RBC (Bld) [#/Vol] 2.56 10*6/uL Low [facility] WBC corrected for nucl RBC Auto (Bld) [#/Vol] 9 [facility] BASIC METABOLIC PANLon 01-04 Anion gap [Moles/Vol] 11 mmol/L Normal 5-15 [facility] Comment on above: Performed By: #### C BC, BMP #### [facility] ([id number]) [address], [address] [place] [address] Calcium [Mass/Vol] 9.1 mg/dL Normal 8.5-10.5 [facility] Comment on above: Performed By: #### C TANYA, BMP #### [facility] ([id number]) [address], [address] [place] [address] Chloride [Moles/Vol] 101 mmol/L Normal 98-109 [facility] Comment on above: Performed By: #### C TANYA, BMP #### [facility] ([id number]) [address], [address] [place] [address] CO2 [Moles/Vol] 23 mmol/L Normal 22-32 [facility] Comment on above: Performed By: #### C TANYA, BMP #### [facility] ([id number]) [address], [address] [place] [address] Creatinine [Mass/Vol] 0.94 mg/dL Normal 0.40-1.00 [facility] Comment on above: Result Comment: METH OD TRACEABLE TO IDMS STANDARD Performed By: #### C TANYA, BMP #### [facility] ([id number]) [address], [address] [place] [address] GFR/1.73 sq M.predicted among non-blacks MDRD (S/P/Bld) [Vol rate/Area] 59 mL/min/{1.73_m2} Low >59 [facility] Comment on above: Result Comment: Reported eGFR is based on the CKD-EPI 2020 equation that does not use a race coefficient. Performed By: #### C TANYA, BMP #### [facility] ([id number]) [address], [address] [place] [address] Glucose [Mass/Vol] 102 mg/dL High 65-99 [facility] Comment on above: Performed By: #### C TANYA, BMP #### [facility] ([id number]) [address], [address] [place] [address] Potassium [Moles/Vol] 4.4 mmol/L Normal 3.5-5.0 [facility] Comment on above: Performed By: #### C BC, BMP #### [facility] ([id number]) [address], [address] [place] [address] Sodium [Moles/Vol] 135 mmol/L Normal 134-146 [facility] Comment on above: Performed By: #### C BC, BMP #### [facility] ([id number]) [address] [place] [address] Urea nitrogen [Mass/Vol] 21 mg/dL Normal 5-27 [facility] Comment on above: Performed By: #### C TANYA, BMP #### [facility] ([id number]) [address], [address] [place] [address] Bacteria identified Cx Nom ( U)on 01-05-2024 Interpretation and review of laboratory results Abnormal [facility] Service comment (Unsp spec) [Interp] >100,000 ORGANISMS/mL KLEBSIELLA PNEUMONIAE Abnormal [facility] Basic Metabolic Panelon 12-10 Anion gap [Moles/Vol] 11 mmol/L 5 - 15 mmol/L [facility] Calcium [Mass/Vol] 9.1 mg/dL 8.5 - 10. 5 mg/dL [facility] Chloride [Moles/Vol] 101 mmol/L 98 - 10 9 mmol/L [facility] CO2 [Moles/Vol] 23 mmol/L 22 - 32 mmol/L [facility] Creatinine [Mass/Vol] 0.94 mg/dL 0.40 - 1.00 mg/dL [facility] Comment on above: METHOD TRACEABLE TO IDMS STANDARD eGFR (CKD-EPI)non-race dependent 59 Low - PINF [facility] Comment on above: Reported eGFR is based on the CKD-EPI 2020 equation that does not use a race coefficient. Glucose [Mass/Vol] 102 mg/dL High 65 - 99 mg/dL [facility] Interpretation and review of laboratory results Abnormal [facility] Potassium [Moles/Vol] 4.4 mmol/L 3.5 - 5.0 mmol/L [facility] Sodium [Moles/Vol] 135 mmol/L 134 - 146 mmol/L [facility] Urea nitrogen [Mass/Vol] 21 mg/dL 5 - 27 mg/dL [facility] CBC AND AUTO DIFFon 01-05-20 ABSOLUTE BASOPHIL 0.0 X10E9/L Normal 0.0-0.2 [facility] Comment on above: Performed By: #### Jeny MARTÍNEZ, BMP #### [facility] ([id number]) [address], [address] [place] [address] ABSOLUTE NEUTROPHIL 10.5 X10E9/L High 1.5-6.6 [facility] Comment on above: Performed By: #### Jeny MARTÍNEZ, BMP #### [facility] ([id number]) [address], [address] [place] [address] Basophils/100 WBC (Bld) 0.3 % Normal [facility] Comment on above: Performed By: #### Jeny MARTÍNEZ, BMP #### [facility] ([id number]) [address], [address] [place] [address] Eosinophils (Bld) [#/Vol] 0.1 10*3/uL Normal 0.0-0.4 [facility] Comment on above: Performed By: #### Jeny MARTÍNEZ, BMP #### [facility] ([id number]) [address], [address] [place] [address] Eosinophils/100 WBC (Bld) 0.8 % Normal [facility] Comment on above: Performed By: #### Jeny MARTÍNEZ, BMP #### [facility] ([id number]) [address], [address] [place] [address] Erythrocyte distribution width (RBC) [Ratio] 18.4 % High 11.5-15.0 [facility] Comment on above: Performed By: #### Jeny MARTÍNEZ, BMP #### [facility] ([id number]) [address], [address] [place] [address] Hematocrit (Bld) [Volume fraction] 29.2 % Low 35-47 [facility] Comment on above: Performed By: #### C TANYA, BMP #### [facility] ([id number]) [address], [address] [place] [address] Hemoglobin (Bld) [Mass/Vol] 9.9 g/dL Low 11.7-15.5 [facility] Comment on above: Performed By: #### C TANYA, BMP #### [facility] ([id number]) [address], [address] [place] [address] Lymphocytes (Bld) [#/Vol] 0.9 10*3/uL Low 1.0-3.5 [facility] Comment on above: Performed By: #### C TANYA, BMP #### [facility] ([id number]) [address], [address] [place] [address] Lymphocytes/100 WBC (Bld) 7.3 % Normal [facility] Comment on above: Performed By: #### Jeny MARTÍNEZ, BMP #### [facility] ([id number]) [address], [address] [place] [address] MCH (RBC) [Entitic mass] 32.9 pg Normal 27-34 [facility] Comment on above: Performed By: #### C TANYA, BMP #### [facility] ([id number]) [address], [address] [place] [address] MCHC (RBC) [Mass/Vol] 33.8 g/dL Normal 32-36 [facility] Comment on above: Performed By: #### C TANYA, BMP #### [facility] ([id number]) [address], [address] [place] [address] MCV (RBC) [Entitic vol] 97 fL Normal 80-100 [facility] Comment on above: Performed By: #### C TANYA, BMP #### [facility] ([id number]) [address] [place] [address] Monocytes (Bld) [#/Vol] 1.4 10*3/uL High 0-0.9 [facility] Comment on above: Performed By: #### C TANYA, BMP #### [facility] ([id number]) [address], [address] [place] [address] Monocytes/100 WBC (Bld) 10.7 % Normal [facility] Comment on above: Performed By: #### C TANYA, BMP #### [facility] ([id number]) [address] [place] [address] Neutrophils/100 WBC (Bld) 80.9 % Normal [facility] Comment on above: Performed By: #### C TANYA, BMP #### [facility] ([id number]) [address], [address] [place] [address] Platelet mean volume (Bld) [Entitic vol] 7.4 fL Normal 7-12 [facility] Comment on above: Performed By: #### C TANYA, BMP #### [facility] ([id number]) [address], [address] [place] [address] Platelets (Bld) [#/Vol] 309 10*3/uL Normal 150-450 [facility] Comment on above: Performed By: #### C TANYA, BMP #### [facility] ([id number]) [address], [address] [place] [address] RBC COUNT 3.00 X10E12/L Low 3.80-5.20 [facility] Comment on above: Performed By: #### C TANYA, BMP #### [facility] ([id number]) [address], [address] [place] [address] WBC (Bld) [#/Vol] 12.9 10*3/uL High 4.0-11.0 [facility] Comment on above: Performed By: #### C BC, BMP #### [facility] ([id number]) [address] [place] [address] CBC auto differentialon 12-10 Basophils (Bld) [#/Vol] 0 10*3/uL [facility] Basophils/100 WBC (Bld) 0.3 % [facility] Eosinophils (Bld) [#/Vol] 0.1 10*3/uL [facility] Eosinophils/100 WBC (Bld) 0.8 % [facility] Erythrocyte distribution width (RBC) [Ratio] 18.4 % High 11.5 - 15.0 % [facility] Hematocrit (Bld) [Volume fraction] 29.2 % Low 35 - 47 % [facility] Hemoglobin (Bld) [Mass/Vol] 9.9 g/dL Low 11.7 - 15.5 g/dL [facility] Interpretation and review of laboratory results Abnormal [facility] Lymphocytes (Bld) [#/Vol] 0.9 10*3/uL Low [facility] Lymphocytes/100 WBC (Bld) 7.3 % [facility] MCH (RBC) [Entitic mass] 32.9 pg 27 - 34 pg [facility] MCHC (RBC) [Mass/Vol] 33.8 g/dL 32 - 3 6 g/dL [facility] MCV (RBC) [Entitic vol] 97 fL 80 - 100 fL [facility] Monocytes (Bld) [#/Vol] 1.4 10*3/uL High [facility] Monocytes/100 WBC (Bld) 10.7 % [facility] Neutrophils (Bld) [#/Vol] 10.5 10*3/uL High [facility] Neutrophils/100 WBC (Bld) 80.9 % [facility] Platelet mean volume (Bld) [Entitic vol] 7.4 fL 7 - 12 fL [facility] Platelets (Bld) [#/Vol] 309 10*3/uL [facility] RBC (Bld) [#/Vol] 3 10*6/uL [facility] WBC corrected for nucl RBC Auto (Bld) [#/Vol] 12.9 High [facility] Glucose Glucometer (BldC) [M ass/Vol]on 01-05-2024 Glucose [Mass/Vol] 96 mg/dL 65 - 99 mg/dL [facility] Glucose [Mass/Vol] 96 mg/dL Normal 65-99 [facility] BASIC METABOLIC PANLon 01-03 Anion gap [Moles/Vol] 7 mmol/L Normal 5-15 [facility] Comment on above: Performed By: #### Jeny MARTÍNEZ, BMP #### [facility] ([id number]) [address], [address] [place] [address] Calcium [Mass/Vol] 8.6 mg/dL Normal 8.5-10.5 [facility] Comment on above: Performed By: #### Jeny MARTÍNEZ, BMP #### [facility] ([id number]) [address], [address] [place] [address] Chloride [Moles/Vol] 103 mmol/L Normal 98-109 [facility] Comment on above: Performed By: #### Jeny MARTÍNEZ, BMP #### [facility] ([id number]) [address], [address] [place] [address] CO2 [Moles/Vol] 23 mmol/L Normal 22-32 [facility] Comment on above: Performed By: #### Jeny MARTÍNEZ, BMP #### [facility] ([id number]) [address], [address] [place] [address] Creatinine [Mass/Vol] 1.11 mg/dL High 0.40-1.00 [facility] Comment on above: Result Comment: METH OD TRACEABLE TO IDMS STANDARD Performed By: #### Jeny MARTÍNEZ, BMP #### [facility] ([id number]) [address], [address] [place] [address] GFR/1.73 sq M.predicted among non-blacks MDRD (S/P/Bld) [Vol rate/Area] 48 mL/min/{1.73_m2} Low >59 [facility] Comment on above: Result Comment: Reported eGFR is based on the CKD-EPI 2020 equation that does not use a race coefficient. Performed By: #### C TANYA, BMP #### [facility] ([id number]) [address] [place] [address] Glucose [Mass/Vol] 85 mg/dL Normal 65-99 [facility] Comment on above: Performed By: #### C TANYA, BMP #### [facility] ([id number]) [address] [place] [address] Potassium [Moles/Vol] 5.4 mmol/L High 3.5-5.0 [facility] Comment on above: Result Comment: SPEC IMEN HEMOLYZED, RESULTS INCREASED MODERATELY HEMOLYZED Performed By: #### C TANYA, BMP #### [facility] ([id number]) [address] [place] [address] Sodium [Moles/Vol] 133 mmol/L Low 134-146 [facility] Comment on above: Performed By: #### Jeny MARTÍNEZ, BMP #### [facility] ([id number]) [address] [place] [address] Urea nitrogen [Mass/Vol] 21 mg/dL Normal 5-27 [facility] Comment on above: Performed By: #### C TANYA, BMP #### [facility] ([id number]) [address], [address] [place] [address] BLOOD CULTUREon 01-04-2024 Bacteria identified Aer cx Nom (Bld) CULTURE RESULTS NO GROWTH 5 DAYS Normal [facility] Bacteria identified Aer cx Nom (Bld) CULTURE RESULTS NO GROWTH 5 DAYS Normal [facility] Basic Metabolic Panelon 12-10 Anion gap [Moles/Vol] 7 mmol/L 5 - 15 mmol/L [facility] Calcium [Mass/Vol] 8.6 mg/dL 8.5 - 10. 5 mg/dL [facility] Chloride [Moles/Vol] 103 mmol/L 98 - 10 9 mmol/L [facility] CO2 [Moles/Vol] 23 mmol/L 22 - 32 mmol/L [facility] Creatinine [Mass/Vol] 1.11 mg/dL High 0.40 - 1.00 mg/dL [facility] Comment on above: METHOD TRACEABLE TO [facility] STANDARD eGFR (CKD-EPI)non-race dependent 48 Low - PINF [facility] Comment on above: Reported eGFR is based on the CKD-EPI 2020 equation that does not use a race coefficient. Glucose [Mass/Vol] 85 mg/dL 65 - 99 mg/dL [facility] Interpretation and review of laboratory results Abnormal [facility] Potassium [Moles/Vol] 5.4 mmol/L High 3.5 - 5.0 mmol/L [facility] Comment on above: SPECIMEN HEMOLYZED, RESULTS INCREASED MODERATELY HEMOLYZED Sodium [Moles/Vol] 133 mmol/L Low 134 - 146 mmol/L [facility] Urea nitrogen [Mass/Vol] 21 mg/dL 5 - 27 mg/dL [facility] CBC AND AUTO DIFFon 01-04-20 ABSOLUTE BASOPHIL 0.1 X10E9/L Normal 0.0-0.2 [facility] Comment on above: Performed By: #### C TANYA, BMP #### [facility] ([id number]) [address], [address] [place] [address] ABSOLUTE NEUTROPHIL 12.3 X10E9/L High 1.5-6.6 [facility] Comment on above: Performed By: #### C TANYA, BMP #### [facility] ([id number]) [address], [address] [place] [address] Basophils/100 WBC (Bld) 0.4 % Normal [facility] Comment on above: Performed By: #### Jeny MARTÍNEZ, BMP #### [facility] ([id number]) [address], [address] [place] [address] Eosinophils (Bld) [#/Vol] 0.0 10*3/uL Normal 0.0-0.4 [facility] Comment on above: Performed By: #### C TANYA, BMP #### [facility] ([id number]) [address], [facility] [address] [place] [address] Eosinophils/100 WBC (Bld) 0.2 % Normal [facility] Comment on above: Performed By: #### C TANYA, BMP #### [facility] ([id number]) [address] [address] [place] [address] Erythrocyte distribution width (RBC) [Ratio] 18.5 % High 11.5-15.0 [facility] Comment on above: Performed By: #### Jeny MARTÍNEZ, BMP #### [facility] ([id number]) [address] [address] [place] [address] FRAGMENT 1+ Abnormal NONE [facility] Comment on above: Performed By: #### C TANYA, BMP #### [facility] ([id number]) [address], [facility] [address] [place] [address] Hematocrit (Bld) [Volume fraction] 25.8 % Low 35-47 [facility] Comment on above: Performed By: #### C TANYA, BMP #### [facility] ([id number]) [address], [address] [place] [address] Hemoglobin (Bld) [Mass/Vol] 8.8 g/dL Low 11.7-15.5 [facility] Comment on above: Performed By: #### C TANYA, BMP #### [facility] ([id number]) [address] [address] [place] [address] Lymphocytes (Bld) [#/Vol] 1.1 10*3/uL Normal 1.0-3.5 [facility] Comment on above: Performed By: #### Jeny MARTÍNEZ, BMP #### [facility] ([id number]) [address], [address] [place] [address] Lymphocytes/100 WBC (Bld) 7.0 % Normal [facility] Comment on above: Performed By: #### C TANYA, BMP #### [facility] ([id number]) [address], [address] [place] [address] MCH (RBC) [Entitic mass] 32.7 pg Normal 27-34 [facility] Comment on above: Performed By: #### C TANYA, BMP #### [facility] ([id number]) [address], [address] [place] [address] MCHC (RBC) [Mass/Vol] 34.2 g/dL Normal 32-36 [facility] Comment on above: Performed By: #### Jeny MARTÍNEZ, BMP #### [facility] ([id number]) [address], [address] [place] [address] MCV (RBC) [Entitic vol] 96 fL Normal 80-100 [facility] Comment on above: Performed By: #### C TANYA, BMP #### [facility] ([id number]) [address], [address] [place] [address] Monocytes (Bld) [#/Vol] 2.2 10*3/uL High 0-0.9 [facility] Comment on above: Performed By: #### Jeny MARTÍNEZ, BMP #### [facility] ([id number]) [address], [address] [place] [address] Monocytes/100 WBC (Bld) 14.0 % Normal [facility] Comment on above: Performed By: #### Jeny MARTÍNEZ, BMP #### [facility] ([id number]) [address], [address] [place] [address] Neutrophils/100 WBC (Bld) 78.4 % Normal [facility] Comment on above: Performed By: #### C TANYA, BMP #### [facility] ([id number]) [address], [address] [place] [address] OVALOCYTE 1+ Abnormal NONE [facility] Comment on above: Performed By: #### C TANYA, BMP #### [facility] ([id number]) [address], [address] [place] [address] Platelet mean volume (Bld) [Entitic vol] 7.9 fL Normal 7-12 [facility] Comment on above: Performed By: #### C TANYA, BMP #### [facility] ([id number]) [address] [place] [address] Platelets (Bld) [#/Vol] 224 10*3/uL Normal 150-450 [facility] Comment on above: Performed By: #### Jeny MARTÍNEZ, BMP #### [facility] ([id number]) [address], [address] [place] [address] POLYCHROMASIA 1+ Abnormal NONE [facility] Comment on above: Performed By: #### C TANYA, BMP #### [facility] ([id number]) [address] [place] [address] RBC COUNT 2.70 X10E12/L Low 3.80-5.20 [facility] Comment on above: Performed By: #### C TANYA, BMP #### [facility] ([id number]) [address] [place] [address] WBC (Bld) [#/Vol] 15.7 10*3/uL High 4.0-11.0 [place] [facility] Comment on above: Performed By: #### C TANYA, BMP #### [facility] ([id number]) [address], [address] [place] [address] CBC auto differentialon 11-2 Basophils (Bld) [#/Vol] 0.1 10*3/uL [facility] Basophils/100 WBC (Bld) 0.4 % [facility] Eosinophils (Bld) [#/Vol] 0 10*3/uL [facility] Eosinophils/100 WBC (Bld) 0.2 % [facility] Erythrocyte distribution width (RBC) [Ratio] 18.5 % High 11.5 - 15.0 % [facility] Fragments LM Ql (Bld) 1+ Abnormal NONE^NONE [facility] Hematocrit (Bld) [Volume fraction] 25.8 % Low 35 - 47 % [facility] Hemoglobin (Bld) [Mass/Vol] 8.8 g/dL Low 11.7 - 15.5 g/dL [facility] Interpretation and review of laboratory results Abnormal [facility] Lymphocytes (Bld) [#/Vol] 1.1 10*3/uL [facility] Lymphocytes/100 WBC (Bld) 7 % [facility] MCH (RBC) [Entitic mass] 32.7 pg 27 - 34 pg [facility] MCHC (RBC) [Mass/Vol] 34.2 g/dL 32 - 3 6 g/dL [facility] MCV (RBC) [Entitic vol] 96 fL 80 - 100 fL [facility] Monocytes (Bld) [#/Vol] 2.2 10*3/uL High [facility] Monocytes/100 WBC (Bld) 14 % [facility] Neutrophils (Bld) [#/Vol] 12.3 10*3/uL High [facility] Neutrophils/100 WBC (Bld) 78.4 % [facility] Ovalocytes LM Ql (Bld) 1+ Abnormal NONE^NONE [facility] Platelet mean volume (Bld) [Entitic vol] 7.9 fL 7 - 12 fL [facility] Platelets (Bld) [#/Vol] 224 10*3/uL [facility] Polychromasia LM Ql (Bld) 1+ Abnormal NONE^NONE [facility] RBC (Bld) [#/Vol] 2.7 10*6/uL Low [facility] WBC corrected for nucl RBC Auto (Bld) [#/Vol] 15.7 High [facility] CT ABDOMEN AND PELVIS WO CON Ton 01-04-2024 CT ABDOMEN AND PELVIS WO CONT CT ABDOMEN AND PELVIS WO CONT CLINICAL INFORMATION: Sepsis. TECHNIQUE: CT Abdomen and Pelvis without intravenous contrast. All CT scans at this facility use dose modulation, iterative reconstruction, and/or weight based dosing when appropriate to reduce radiation dose to as low as reasonably achievable. COMPARISON: No relevant prior studies available. FINDINGS: CT of the abdomen and pelvis without contrast demonstrate that there are bilateral pleural effusions, greater on the right, that are likely too small to consider thoracentesis. Some patchy airspace disease is present at the left lung base and, to a lesser extent, the right lung base. They are associated with air bronchograms. Coronary artery and arterial calcification is present. Some gas in the subcutaneous tissues of the right lower quadrant may be due to prior injection. 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 The liver, cholecystectomy clips, spleen, pancreas, and adrenal glands are grossly unremarkable. The common bile duct may be enlarged. If clinically indicated, ultrasound may be useful. Dense calcification is present within the iliac vessels. A stent is present within the right superficial femoral artery. There is no free intraperitoneal air, free intraperitoneal fluid, or obvious pelvic abscess.. There are edematous changes within the medial right proximal thigh, which is swollen. Small bubbles of gas are present within the medial swollen muscles. Deep venous thrombosis cannot be assessed. There is no obvious fluid collection. There are bilateral renal cysts, much larger on the left. A small calcification in the right renal hilum measures 2 mm and may be within a vessel. IMPRESSION: * There is swelling of the right thigh with edema or blood within the subcutaneous tissues medially and also swelling and small bubbles of gas within the medial right proximal thigh musculature. Please correlate for hemorrhage from the recent 01/01/2024 vascular surgery procedure. Doppler ultrasound may be useful to exclude deep venous thrombosis in this swollen lower extremity. * There may be enlargement of the common bile duct status post cholecystectomy. If further evaluation is clinically indicated, liver function test and possible right upper quadrant ultrasound may be useful. * There is no obvious abscess or other inflammatory change in the abdomen or pelvis Finalized by Zachary Sampson MD on 01/04/2024 4:21 PM Normal [facility] CT Abdomen and Pelvis WO con traston 01-04-2024 CLINICAL INFORMATION : Sepsis. TECHNIQUE: CT Abdomen and Pelvis without intravenous contrast. All CT scans at this facility use dose modulation, iterative reconstruction, and/or weight based dosing when appropriate to reduce radiation dose to as low as reasonably achievable. COMPARISON: No relevant prior studies available. FINDINGS: CT of the abdomen and pelvis without contrast demonstrate that there are bilateral pleural effusions, greater on the right, that are likely too small to consider thoracentesis. Some patchy airspace disease is present at the left lung base and, to a lesser extent, the right lung base. They are associated with air bronchograms. Coronary artery and arterial calcification is present. Some gas in the subcutaneous tissues of the right lower quadrant may be due to prior injection. 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 The liver, cholecystectomy clips, spleen, pancreas, and adrenal glands are grossly unremarkable. The common bile duct may be enlarged. If clinically indicated, ultrasound may be useful. Dense calcification is present within the iliac vessels. A stent is present within the right superficial femoral artery. There is no free intraperitoneal air, free intraperitoneal fluid, or obvious pelvic abscess.. There are edematous changes within the medial right proximal thigh, which is swollen. Small bubbles of gas are present within the medial swollen muscles. Deep venous thrombosis cannot be assessed. There is no obvious fluid collection. There are bilateral renal cysts, much larger on the left. A small calcification in the right renal hilum measures 2 mm and may be within a vessel. IMPRESSION: * There is swelling of the right thigh with edema or blood within the subcutaneous tissues medially and also swelling and small bubbles of gas within the medial right proximal thigh musculature. Please correlate for hemorrhage from the recent 01/01/2024 vascular surgery procedure. Doppler ultrasound may be useful to exclude deep venous thrombosis in this swollen lower extremity. * There may be enlargement of the common bile duct status post cholecystectomy. If further evaluation is clinically indicated, liver function test and possible right upper quadrant ultrasound may be useful. * There is no obvious abscess or other inflammatory change in the abdomen or pelvis Finalized by Zachary Sampson MD on 01/04/2024 4:21 PM [facility] - 01/04/2024 CLINICAL INFORMATION: Sepsis. TECHNIQUE: CT Abdomen and Pelvis without intravenous contrast. All CT scans at this facility use dose modulation, iterative reconstruction, and/or weight based dosing when appropriate to reduce radiation dose to as low as reasonably achievable. COMPARISON: No relevant prior studies available. FINDINGS: CT of the abdomen and pelvis without contrast demonstrate that there are bilateral pleural effusions, greater on the right, that are likely too small to consider thoracentesis. Some patchy airspace disease is present at the left lung base and, to a lesser extent, the right lung base. They are associated with air bronchograms. Coronary artery and arterial calcification is present. Some gas in the subcutaneous tissues of the right lower quadrant may be due to prior injection. 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 The liver, cholecystectomy clips, spleen, pancreas, and adrenal glands are grossly unremarkable. The common bile duct may be enlarged. If clinically indicated, ultrasound may be useful. Dense calcification is present within the iliac vessels. A stent is present within the right superficial femoral artery. There is no free intraperitoneal air, free intraperitoneal fluid, or obvious pelvic abscess.. There are edematous changes within the medial right proximal thigh, which is swollen. Small bubbles of gas are present within the medial swollen muscles. Deep venous thrombosis cannot be assessed. There is no obvious fluid collection. There are bilateral renal cysts, much larger on the left. A small calcification in the right renal hilum measures 2 mm and may be within a vessel. IMPRESSION: * There is swelling of the right thigh with edema or blood within the subcutaneous tissues medially and also swelling and small bubbles of gas within the medial right proximal thigh musculature. Please correlate for hemorrhage from the recent 01/01/2024 vascular surgery procedure. Doppler ultrasound may be useful to exclude deep venous thrombosis in this swollen lower extremity. * There may be enlargement of the common bile duct status post cholecystectomy. If further evaluation is clinically indicated, liver function test and possible right upper quadrant ultrasound may be useful. * There is no obvious abscess or other inflammatory change in the abdomen or pelvis Finalized by Zachary Sampson MD on 01/04/2024 4:21 PM [facility] Study observation (narrative) [facility] CT Abdomen and Pelvis WO con trastOrdered By: Petar Sampson on 01-04-2024 [facility] Work Phone: ECG 12 leadon 01-04-2024 TRACEMASTERVUE [facility] Glucose Glucometer (BldC) [M ass/Vol]on 01-04-2024 Glucose [Mass/Vol] 140 mg/dL High 65 - 99 mg/dL [facility] Interpretation and review of laboratory results Abnormal [facility] Glucose [Mass/Vol] 140 mg/dL High 65-99 [facility] Glucose [Mass/Vol] 93 mg/dL 65 - 99 mg/dL [facility] Glucose [Mass/Vol] 93 mg/dL Normal 65-99 [facility] Glucose [Mass/Vol] 86 mg/dL 65 - 99 mg/dL [facility] Glucose [Mass/Vol] 86 mg/dL Normal 65-99 [facility] Glucose [Mass/Vol] 94 mg/dL 65 - 99 mg/dL [facility] Glucose [Mass/Vol] 94 mg/dL Normal 65-99 [facility] Glucose [Mass/Vol] 96 mg/dL 65 - 99 mg/dL [facility] Glucose [Mass/Vol] 96 mg/dL Normal 65-99 [facility] POTASSIUMon 01-04-2024 Potassium [Moles/Vol] 4.4 mmol/L Normal 3.5-5.0 [facility] Comment on above: Performed By: #### C BC, BMP #### [facility] ([id number]) [address] [place] [address] Potassiumon 01-04-2024 Potassium [Moles/Vol] 4.4 mmol/L 3.5 - 5.0 mmol/L [facility] Potassium [Moles/Vol]on 12-10 [facility] BASIC METABOLIC PANLon 01-02 Anion gap [Moles/Vol] 10 mmol/L Normal 5-15 [facility] Comment on above: Performed By: #### A FAB5 #### [facility] ([id number]) [address] [place] [address] Calcium [Mass/Vol] 9.0 mg/dL Normal 8.5-10.5 [facility] Comment on above: Performed By: #### A FAB5 #### [facility] ([id number]) [address] [place] [address] Chloride [Moles/Vol] 104 mmol/L Normal 98-109 [facility] Comment on above: Performed By: #### A FAB5 #### [facility] ([id number]) [address] [place] [address] CO2 [Moles/Vol] 23 mmol/L Normal 22-32 [facility] Comment on above: Performed By: #### A FAB5 #### [facility] ([id number]) [address] [place] [address] Creatinine [Mass/Vol] 1.32 mg/dL High 0.40-1.00 [facility] Comment on above: Result Comment: METH OD TRACEABLE TO IDMS STANDARD Performed By: #### A FAB5 #### [facility] ([id number]) [address] [place] [address] GFR/1.73 sq M.predicted among non-blacks MDRD (S/P/Bld) [Vol rate/Area] 39 mL/min/{1.73_m2} Low >59 [facility] Comment on above: Result Comment: Reported eGFR is based on the CKD-EPI 2020 equation that does not use a race coefficient. Performed By: #### A FAB5 #### [facility] ([id number]) [address] [place] [address] Glucose [Mass/Vol] 105 mg/dL High 65-99 [facility] Comment on above: Performed By: #### A FAB5 #### [facility] ([id number]) [address] [place] [address] Potassium [Moles/Vol] 5.1 mmol/L High 3.5-5.0 [facility] Comment on above: Performed By: #### A FAB5 #### [facility] ([id number]) [address] [place] [address] Sodium [Moles/Vol] 137 mmol/L Normal 134-146 [facility] Comment on above: Performed By: #### A FAB5 #### [facility] ([id number]) [address] [place] [address] Urea nitrogen [Mass/Vol] 31 mg/dL High 5-27 [facility] Comment on above: Performed By: #### A FAB5 #### [facility] ([id number]) [address] [place] [address] Basic Metabolic Panelon 11- Anion gap [Moles/Vol] 10 mmol/L 5 - 15 mmol/L [facility] Calcium [Mass/Vol] 9 mg/dL 8.5 - 10. 5 mg/dL [facility] Chloride [Moles/Vol] 104 mmol/L 98 - 10 9 mmol/L [facility] CO2 [Moles/Vol] 23 mmol/L 22 - 32 mmol/L [facility] Creatinine [Mass/Vol] 1.32 mg/dL High 0.40 - 1.00 mg/dL [facility] Comment on above: METHOD TRACEABLE TO [facility] STANDARD eGFR (CKD-EPI)non-race dependent 39 Low - PINF [facility] Comment on above: Reported eGFR is based on the CKD-EPI 2020 equation that does not use a race coefficient. Glucose [Mass/Vol] 105 mg/dL High 65 - 99 mg/dL [facility] Interpretation and review of laboratory results Abnormal [facility] Potassium [Moles/Vol] 5.1 mmol/L High 3.5 - 5.0 mmol/L [facility] Sodium [Moles/Vol] 137 mmol/L 134 - 146 mmol/L [facility] Urea nitrogen [Mass/Vol] 31 mg/dL High 5 - 27 mg/dL [facility] CBC AND AUTO DIFFon 11-25-20 24 ABSOLUTE BASOPHIL 0.0 X10E9/L Normal 0.0-0.2 [facility] Comment on above: Performed By: #### A FAB5 #### [facility] ([id number]) [address] [place] [address] ABSOLUTE NEUTROPHIL 11.7 X10E9/L High 1.5-6.6 [facility] Comment on above: Performed By: #### A FAB5 #### [facility] ([id number]) [address] [place] [address] Basophils/100 WBC (Bld) 0.1 % Normal [facility] Comment on above: Performed By: #### A FAB5 #### [facility] ([id number]) [address] [place] [address] Eosinophils (Bld) [#/Vol] 0.0 10*3/uL Normal 0.0-0.4 [facility] Comment on above: Performed By: #### A FAB5 #### [facility] ([id number]) [address] [place] [address] Eosinophils/100 WBC (Bld) 0.0 % Normal [facility] Comment on above: Performed By: #### A FAB5 #### [facility] ([id number]) [address] [place] [address] Erythrocyte distribution width (RBC) [Ratio] 20.1 % High 11.5-15.0 [facility] Comment on above: Performed By: #### A FAB5 #### [facility] ([id number]) [address] [place] [address] Hematocrit (Bld) [Volume fraction] 27.1 % Low 35-47 [facility] Comment on above: Performed By: #### A FAB5 #### [facility] ([id number]) [address] [place] [address] Hemoglobin (Bld) [Mass/Vol] 9.2 g/dL Low 11.7-15.5 [facility] Comment on above: Performed By: #### A FAB5 #### [facility] ([id number]) [address] [place] [address] Lymphocytes (Bld) [#/Vol] 0.8 10*3/uL Low 1.0-3.5 [facility] Comment on above: Performed By: #### A FAB5 #### [facility] ([id number]) [address] [place] [address] Lymphocytes/100 WBC (Bld) 5.5 % Normal [facility] Comment on above: Performed By: #### A FAB5 #### [facility] ([id number]) [address] [place] [address] MCH (RBC) [Entitic mass] 32.7 pg Normal 27-34 [facility] Comment on above: Performed By: #### A FAB5 #### [facility] ([id number]) [address] [place] [address] MCHC (RBC) [Mass/Vol] 33.9 g/dL Normal 32-36 [facility] Comment on above: Performed By: #### A FAB5 #### [facility] ([id number]) [address] [place] [address] MCV (RBC) [Entitic vol] 97 fL Normal 80-100 [facility] Comment on above: Performed By: #### A FAB5 #### [facility] ([id number]) [address] [place] [address] Monocytes (Bld) [#/Vol] 1.8 10*3/uL High 0-0.9 [facility] Comment on above: Performed By: #### A FAB5 #### [facility] ([id number]) [address] [place] [address] Monocytes/100 WBC (Bld) 12.4 % Normal [facility] Comment on above: Performed By: #### A FAB5 #### [facility] ([id number]) [address] [place] [address] Neutrophils/100 WBC (Bld) 82.0 % Normal [facility] Comment on above: Performed By: #### A FAB5 #### [facility] ([id number]) [address] [place] [address] Platelet mean volume (Bld) [Entitic vol] 7.6 fL Normal 7-12 [facility] Comment on above: Performed By: #### A FAB5 #### [facility] ([id number]) [address] [place] [address] Platelets (Bld) [#/Vol] 303 10*3/uL Normal 150-450 [facility] Comment on above: Performed By: #### A FAB5 #### [facility] ([id number]) [address] [place] [address] RBC COUNT 2.81 X10E12/L Low 3.80-5.20 [facility] Comment on above: Performed By: #### A FAB5 #### [facility] ([id number]) [address] [place] [address] WBC (Bld) [#/Vol] 14.3 10*3/uL High 4.0-11.0 [facility] Comment on above: Performed By: #### A FAB5 #### [facility] ([id number]) [address] [place] [address] CBC auto differentialon 12-10 Basophils (Bld) [#/Vol] 0 10*3/uL [facility] Basophils/100 WBC (Bld) 0.1 % [facility] Eosinophils (Bld) [#/Vol] 0 10*3/uL [facility] Eosinophils/100 WBC (Bld) 0 % [facility] Erythrocyte distribution width (RBC) [Ratio] 20.1 % High 11.5 - 15.0 % [facility] Hematocrit (Bld) [Volume fraction] 27.1 % Low 35 - 47 % [facility] Hemoglobin (Bld) [Mass/Vol] 9.2 g/dL Low 11.7 - 15.5 g/dL [facility] Interpretation and review of laboratory results Abnormal [facility] Lymphocytes (Bld) [#/Vol] 0.8 10*3/uL Low [facility] Lymphocytes/100 WBC (Bld) 5.5 % [facility] MCH (RBC) [Entitic mass] 32.7 pg 27 - 34 pg [facility] MCHC (RBC) [Mass/Vol] 33.9 g/dL 32 - 3 6 g/dL [facility] MCV (RBC) [Entitic vol] 97 fL 80 - 100 fL [facility] Monocytes (Bld) [#/Vol] 1.8 10*3/uL High [facility] Monocytes/100 WBC (Bld) 12.4 % [facility] Neutrophils (Bld) [#/Vol] 11.7 10*3/uL High [facility] Neutrophils/100 WBC (Bld) 82 % [facility] Platelet mean volume (Bld) [Entitic vol] 7.6 fL 7 - 12 fL [facility] Platelets (Bld) [#/Vol] 303 10*3/uL [facility] RBC (Bld) [#/Vol] 2.81 10*6/uL Low [facility] WBC corrected for nucl RBC Auto (Bld) [#/Vol] 14.3 High [facility] Glucose Glucometer (BldC) [M ass/Vol]on 01-03-2024 Glucose [Mass/Vol] 108 mg/dL High 65 - 99 mg/dL [facility] Interpretation and review of laboratory results Abnormal [facility] Glucose [Mass/Vol] 108 mg/dL High 65-99 [facility] Glucose [Mass/Vol] 82 mg/dL 65 - 99 mg/dL [facility] Glucose [Mass/Vol] 82 mg/dL Normal 65-99 [facility] Glucose [Mass/Vol] 93 mg/dL 65 - 99 mg/dL [facility] Glucose [Mass/Vol] 93 mg/dL Normal 65-99 [facility] Glucose [Mass/Vol] 103 mg/dL High 65 - 99 mg/dL [facility] Interpretation and review of laboratory results Abnormal [facility] Glucose [Mass/Vol] 103 mg/dL High 65-99 [facility] POTASSIUMon 01-03-2024 Potassium [Moles/Vol] 5.0 mmol/L Normal 3.5-5.0 [facility] Comment on above: Performed By: #### A FAB5 #### [facility] ([id number]) [address] [place] [address] PROTIME AND INRon 01-03-2024 INR Coag (PPP) [Relative time] 1.0 {INR} Normal 0.8-1.1 [facility] Comment on above: Performed By: #### A FAB5 #### [facility] ([id number]) [address] [place] [address] PT Coag (PPP) [Time] 12.2 s Normal 9.8-13.2 [facility] Comment on above: Performed By: #### A FAB5 #### [facility] ([id number]) [address] [place] [address] Potassiumon 01-03-2024 Potassium [Moles/Vol] 5 mmol/L 3.5 - 5.0 mmol/L [facility] Potassium [Moles/Vol]on 12-10 [facility] Protime & INRon 01-03-2024 INR Coag (PPP) [Relative time] 1 {INR} [facility] PT Coag (PPP) [Time] 12.2 s [facility] URINE CULTUREon 01-03-2024 Bacteria identified Cx Nom (U) CULTURE RESULTS >100,000 ORGANISMS/mL KLEBSIELLA PNEUMONIAE [ S = SUSCEPTIBLE R = RESISTANT I = INTERMEDIATE S-DO = Susceptible-dose dependent NS = Non-suscceptible NO = No Interpretation ] Organism: KLEBSIELLA PNEUMONIAE Antibiotic Interpretation JODY Status AMPICILLIN R >=32 F AMP/SULBACTAM S 4/2 F CEFAZOLIN S <=4 F CEFTRIAXONE S <=0.25 F CIPROFLOXACIN R 1 F GENTAMICIN S <=1 F LEVOFLOXACIN I 1 F NITROFURANTOIN R 128 F PIPERACIL/TAZOBACTAM S <=4 F TOBRAMYCIN S <=1 F TRIMETH/SULFAMETHOXAZOL E S <=1/19 F Susceptible [facility] Comment on above: Performed By: #### C BC, BMP #### [facility] ([id number]) [address], [address] [place] [address] BASIC METABOLIC PANLon 01-01 GFR/1.73 sq M.predicted among non-blacks MDRD (S/P/Bld) [Vol rate/Area] 57 mL/min/{1.73_m2} Low >59 [facility] Comment on above: Result Comment: Reported eGFR is based on the CKD-EPI 2020 equation that does not use a race coefficient. Performed By: #### I BC #### [facility] ([id number]) [address] [place] [address] Anion gap [Moles/Vol] 9 mmol/L Normal 5-15 [facility] Comment on above: Performed By: #### I BC #### [facility] ([id number]) [address] [place] [address] Calcium [Mass/Vol] 8.4 mg/dL Low 8.5-10.5 [facility] Comment on above: Performed By: #### I BC #### [facility] ([id number]) [address] [place] [address] Chloride [Moles/Vol] 106 mmol/L Normal 98-109 [facility] Comment on above: Performed By: #### I BC #### [facility] ([id number]) [address] [place] [address] CO2 [Moles/Vol] 21 mmol/L Low 22-32 [facility] Comment on above: Performed By: #### I BC #### [facility] ([id number]) [address] [place] [address] Creatinine [Mass/Vol] 0.96 mg/dL Normal 0.40-1.00 [facility] Comment on above: Result Comment: METH OD TRACEABLE TO IDMS STANDARD Performed By: #### I BC #### [facility] ([id number]) [address] [place], [place] [address] METHOD TRACEABLE TO IDMS STANDARD Glucose [Mass/Vol] 153 mg/dL High 65-99 [facility] Comment on above: Performed By: #### I BC #### [facility] ([id number]) [address] [place] [address] Potassium [Moles/Vol] 4.7 mmol/L Normal 3.5-5.0 [facility] Comment on above: Performed By: #### I BC #### [facility] ([id number]) [address] [place] [address] Sodium [Moles/Vol] 136 mmol/L Normal 134-146 [facility] Comment on above: Performed By: #### I BC #### [facility] ([id number]) [address] [place] [address] Urea nitrogen [Mass/Vol] 22 mg/dL Normal 5-27 [facility] Comment on above: Performed By: #### I BC #### [facility] ([id number]) [address] [place] [address] Basic Metabolic Panelon - eGFR (CKD-EPI)non-race dependent 57 Low - PINF [facility] Comment on above: Reported eGFR is based on the CKD-EPI 2020 equation that does not use a race coefficient. CBC AND AUTO DIFFon 01-02-20 24 ABSOLUTE BASOPHIL 0.0 X10E9/L Normal 0.0-0.2 [facility] Comment on above: Performed By: #### I BC #### [facility] ([id number]) [address] [place] [address] ABSOLUTE NEUTROPHIL 11.2 X10E9/L High 1.5-6.6 [facility] Comment on above: Performed By: #### I BC #### [facility] ([id number]) [address] [place] [address] Eosinophils (Bld) [#/Vol] 0.0 10*3/uL Normal 0.0-0.4 [facility] Comment on above: Performed By: #### I BC #### [facility] ([id number]) [address] [place] [address] Eosinophils/100 WBC (Bld) 0.0 % Normal [facility] Comment on above: Performed By: #### I BC #### [facility] ([id number]) [address] [place] [address] Erythrocyte distribution width (RBC) [Ratio] 20.0 % High 11.5-15.0 [facility] Comment on above: Performed By: #### I BC #### [facility] ([id number]) [address] [place] [address] RBC COUNT 2.70 X10E12/L Low 3.80-5.20 [facility] Comment on above: Performed By: #### I BC #### [facility] ([id number]) [address] [place] [address] WBC (Bld) [#/Vol] 11.9 10*3/uL High 4.0-11.0 [facility] Comment on above: Performed By: #### I BC #### [facility] ([id number]) [address] [place] [address] Basophils/100 WBC (Bld) 0.1 % Normal [facility] Comment on above: Performed By: #### I BC #### [facility] ([id number]) [address] [place] [address] Hematocrit (Bld) [Volume fraction] 25.6 % Low 35-47 [facility] Comment on above: Performed By: #### I BC #### [facility] ([id number]) [address] [place] [address] Hemoglobin (Bld) [Mass/Vol] 8.8 g/dL Low 11.7-15.5 [facility] Comment on above: Performed By: #### I BC #### [facility] ([id number]) [address] [place] [address] Lymphocytes (Bld) [#/Vol] 0.3 10*3/uL Low 1.0-3.5 [facility] Comment on above: Performed By: #### I BC #### [facility] ([id number]) [address] [place] [address] Lymphocytes/100 WBC (Bld) 2.4 % Normal [facility] Comment on above: Performed By: #### I BC #### [facility] ([id number]) [address] [place] [address] MCH (RBC) [Entitic mass] 32.7 pg Normal 27-34 [facility] Comment on above: Performed By: #### I BC #### [facility] ([id number]) [address] [place] [address] MCHC (RBC) [Mass/Vol] 34.4 g/dL Normal 32-36 [facility] Comment on above: Performed By: #### I BC #### [facility] ([id number]) [address] [place] [address] MCV (RBC) [Entitic vol] 95 fL Normal 80-100 [facility] Comment on above: Performed By: #### I BC #### [facility] ([id number]) [address] [place] [address] Monocytes (Bld) [#/Vol] 0.5 10*3/uL Normal 0-0.9 [facility] Comment on above: Performed By: #### I BC #### [facility] ([id number]) [address] [place] [address] Monocytes/100 WBC (Bld) 3.8 % Normal [facility] Comment on above: Performed By: #### I BC #### [facility] ([id number]) [address] [place] [address] Neutrophils/100 WBC (Bld) 93.7 % Normal [facility] Comment on above: Performed By: #### I BC #### [facility] ([id number]) [address] [place] [address] Platelet mean volume (Bld) [Entitic vol] 7.3 fL Normal 7-12 [facility] Comment on above: Performed By: #### I BC #### [facility] ([id number]) [address] [place] [address] Platelets (Bld) [#/Vol] 285 10*3/uL Normal 150-450 [facility] Comment on above: Performed By: #### I BC #### [facility] ([id number]) [address] [place] [address] CBC auto differentialon 12-10 Basophils (Bld) [#/Vol] 0 10*3/uL [facility] Eosinophils (Bld) [#/Vol] 0 10*3/uL [facility] Eosinophils/100 WBC (Bld) 0 % [facility] Erythrocyte distribution width (RBC) [Ratio] 20 % High 11.5 - 15.0 % [facility] Interpretation and review of laboratory results Abnormal [facility] Neutrophils (Bld) [#/Vol] 11.2 10*3/uL High [facility] RBC (Bld) [#/Vol] 2.7 10*6/uL Low [facility] WBC corrected for nucl RBC Auto (Bld) [#/Vol] 11.9 High [facility] Crossmatch RBC:Number of Uni ts: 1on 01-02-2024 BB Type Barcode 6200 [facility] Blood component type [id number] [facility] Crossmatch Compatible [facility] Expiration Date [facility] Status of unit TRANSFUSED [facility] Unit ABO A [facility] Unit number [id number] [facility] RH Positive [facility] Ionized magnesiumon 01-02-20 Magnesium Ionized ISE (Bld) [Moles/Vol] 0.8 mmol/L High 0.45 - 0.74 mmol/L [facility] Comment on above: NEW REFERENCE RANGE Magnesium Ionized ISE (Bld) [Moles/Vol] 0.25 mmol/L Critically low 0.45 - 0.74 mmol/L [facility] Comment on above: NEW REFERENCE RANGE MAGNESIUMon 01-02-2024 Magnesium [Mass/Vol] 1.3 mg/dL Low 1.8-2.6 [facility] Comment on above: Performed By: #### I BC #### [facility] ([id number]) [address] [place] [address] Magnesium Ionized ISE (Bld) [Moles/Vol]on 01-02-2024 Interpretation and review of laboratory results Abnormal [facility] Magnesium [Moles/Vol] 0.80 mmol/L High 0.45-0.74 [facility] Comment on above: Result Comment: NEW REFERENCE RANGE Performed By: #### A FAB5 #### [facility] ([id number]) [address] [place] [address] Interpretation and review of laboratory results Abnormal [facility] Magnesium [Moles/Vol] 0.25 mmol/L Critically low 0.45-0.74 [facility] Comment on above: Result Comment: NEW REFERENCE RANGE Performed By: #### I BC #### [facility] ([id number]) [address] [place] [address] No Panel Informationon 01-01 Interpretation and review of laboratory results Abnormal [facility] PHOSPHORUSon 01-02-2024 Phosphate [Mass/Vol] 5.0 mg/dL High 2.4-4.9 [facility] Comment on above: Performed By: #### A FAB5 #### [facility] ([id number]) [address] [place] [address] PROTIME AND INRon 01-02-2024 INR Coag (PPP) [Relative time] 1.1 {INR} Normal 0.8-1.1 [facility] Comment on above: Performed By: #### I BC #### [facility] ([id number]) [address] [place] [address] PT Coag (PPP) [Time] 13.2 s Normal 9.8-13.2 [facility] Comment on above: Performed By: #### I BC #### [facility] ([id number]) [address] [place] [address] Phosphoruson 01-02-2024 Phosphate [Mass/Vol] 5 mg/dL High 2.4 - 4 .9 mg/dL [facility] Protime & INRon 01-02-2024 [facility] BASIC METABOLIC PANLon 12-31 Anion gap [Moles/Vol] 7 mmol/L Normal 5-15 [facility] Comment on above: Performed By: #### I BC #### [facility] ([id number]) [address] [place] [address] Calcium [Mass/Vol] 8.4 mg/dL Low 8.5-10.5 [facility] Comment on above: Performed By: #### I BC #### [facility] ([id number]) [address] [place] [address] Chloride [Moles/Vol] 107 mmol/L Normal 98-109 [facility] Comment on above: Performed By: #### I BC #### [facility] ([id number]) [address] [place] [address] CO2 [Moles/Vol] 22 mmol/L Normal 22-32 [facility] Comment on above: Performed By: #### I BC #### [facility] ([id number]) [address] [place] [address] Creatinine [Mass/Vol] 0.97 mg/dL Normal 0.40-1.00 [facility] Comment on above: Result Comment: METH OD TRACEABLE TO IDMS STANDARD Performed By: #### I BC #### [facility] ([id number]) [address] [place] [address] GFR/1.73 sq M.predicted among non-blacks MDRD (S/P/Bld) [Vol rate/Area] 57 mL/min/{1.73_m2} Low >59 [facility] Comment on above: Result Comment: Reported eGFR is based on the CKD-EPI 2020 equation that does not use a race coefficient. Performed By: #### I BC #### [facility] ([id number]) [address] [place] [address] Glucose [Mass/Vol] 143 mg/dL High 65-99 [facility] Comment on above: Performed By: #### I BC #### [facility] ([id number]) [address] [place] [address] Potassium [Moles/Vol] 4.3 mmol/L Normal 3.5-5.0 [facility] Comment on above: Performed By: #### I BC #### [facility] ([id number]) [address] [place] [address] Sodium [Moles/Vol] 136 mmol/L Normal 134-146 [facility] Comment on above: Performed By: #### I BC #### [facility] ([id number]) [address] [place] [address] Urea nitrogen [Mass/Vol] 22 mg/dL Normal 5-27 [facility] Comment on above: Performed By: #### I BC #### [facility] ([id number]) [address] [place] [address] Basic Metabolic Panelon 12-10 Anion gap [Moles/Vol] 7 mmol/L 5 - 15 mmol/L [facility] Calcium [Mass/Vol] 8.4 mg/dL Low 8.5 - 10. 5 mg/dL [facility] Chloride [Moles/Vol] 107 mmol/L 98 - 10 9 mmol/L [facility] CO2 [Moles/Vol] 22 mmol/L 22 - 32 mmol/L [facility] Creatinine [Mass/Vol] 0.97 mg/dL 0.40 - 1.00 mg/dL [facility] Comment on above: METHOD TRACEABLE TO [facility] STANDARD eGFR (CKD-EPI)non-race dependent 57 Low - PINF [facility] Comment on above: Reported eGFR is based on the CKD-EPI 2020 equation that does not use a race coefficient. Glucose [Mass/Vol] 143 mg/dL High 65 - 99 mg/dL [facility] Interpretation and review of laboratory results Abnormal [facility] Potassium [Moles/Vol] 4.3 mmol/L 3.5 - 5.0 mmol/L [facility] Sodium [Moles/Vol] 136 mmol/L 134 - 146 mmol/L [facility] Urea nitrogen [Mass/Vol] 22 mg/dL 5 - 27 mg/dL [facility] CBC AND AUTO DIFFon 01-01-20 ABSOLUTE BASOPHIL 0.0 X10E9/L Normal 0.0-0.2 [facility] Comment on above: Performed By: #### I BC #### [facility] ([id number]) [address] [place] [address] ABSOLUTE NEUTROPHIL 12.4 X10E9/L High 1.5-6.6 [facility] Comment on above: Performed By: #### I BC #### [facility] ([id number]) [address] [place] [address] Basophils/100 WBC (Bld) 0.3 % Normal [facility] Comment on above: Performed By: #### I BC #### [facility] ([id number]) [address] [place] [address] Eosinophils (Bld) [#/Vol] 0.0 10*3/uL Normal 0.0-0.4 [facility] Comment on above: Performed By: #### I BC #### [facility] ([id number]) [address] [place] [address] Eosinophils/100 WBC (Bld) 0.0 % Normal [facility] Comment on above: Performed By: #### I BC #### [facility] ([id number]) [address] [place] [address] Erythrocyte distribution width (RBC) [Ratio] 19.6 % High 11.5-15.0 [facility] Comment on above: Performed By: #### I BC #### [facility] ([id number]) [address] [place] [address] Hematocrit (Bld) [Volume fraction] 25.8 % Low 35-47 [facility] Comment on above: Performed By: #### I BC #### [facility] ([id number]) [address] [place] [address] Hemoglobin (Bld) [Mass/Vol] 8.9 g/dL Low 11.7-15.5 [facility] Comment on above: Performed By: #### I BC #### [facility] ([id number]) [address] [place] [address] Lymphocytes (Bld) [#/Vol] 0.4 10*3/uL Low 1.0-3.5 [facility] Comment on above: Performed By: #### I BC #### [facility] ([id number]) [address] [place] [address] Lymphocytes/100 WBC (Bld) 3.2 % Normal [facility] Comment on above: Performed By: #### I BC #### [facility] ([id number]) [address] [place] [address] MCH (RBC) [Entitic mass] 32.7 pg Normal 27-34 [facility] Comment on above: Performed By: #### I BC #### [facility] ([id number]) [address] [place] [address] MCHC (RBC) [Mass/Vol] 34.4 g/dL Normal 32-36 [facility] Comment on above: Performed By: #### I BC #### [facility] ([id number]) [address] [place] [address] MCV (RBC) [Entitic vol] 95 fL Normal 80-100 [facility] Comment on above: Performed By: #### I BC #### [facility] ([id number]) [address] [place] [address] Monocytes (Bld) [#/Vol] 0.4 10*3/uL Normal 0-0.9 [facility] Comment on above: Performed By: #### I BC #### [facility] ([id number]) [address] [place] [address] Monocytes/100 WBC (Bld) 3.3 % Normal [facility] Comment on above: Performed By: #### I BC #### [facility] ([id number]) [address] [place] [address] Neutrophils/100 WBC (Bld) 93.2 % Normal [facility] Comment on above: Performed By: #### I BC #### [facility] ([id number]) [address] [place] [address] Platelet mean volume (Bld) [Entitic vol] 7.0 fL Normal 7-12 [facility] Comment on above: Performed By: #### I BC #### [facility] ([id number]) [address] [place] [address] Platelets (Bld) [#/Vol] 270 10*3/uL Normal 150-450 [facility] Comment on above: Performed By: #### I BC #### [facility] ([id number]) [address] [place] [address] RBC COUNT 2.72 X10E12/L Low 3.80-5.20 [facility] Comment on above: Performed By: #### I BC #### [facility] ([id number]) [address] [place] [address] WBC (Bld) [#/Vol] 13.3 10*3/uL High 4.0-11.0 [facility] Comment on above: Performed By: #### I BC #### [facility] ([id number]) [address] [place] [address] CBC auto differentialon 12-10 Basophils (Bld) [#/Vol] 0 10*3/uL [facility] Basophils/100 WBC (Bld) 0.3 % [facility] Eosinophils (Bld) [#/Vol] 0 10*3/uL [facility] Eosinophils/100 WBC (Bld) 0 % [facility] Erythrocyte distribution width (RBC) [Ratio] 19.6 % High 11.5 - 15.0 % [facility] Hematocrit (Bld) [Volume fraction] 25.8 % Low 35 - 47 % [facility] Hemoglobin (Bld) [Mass/Vol] 8.9 g/dL Low 11.7 - 15.5 g/dL [facility] Interpretation and review of laboratory results Abnormal [facility] Lymphocytes (Bld) [#/Vol] 0.4 10*3/uL Low [facility] Lymphocytes/100 WBC (Bld) 3.2 % [facility] MCH (RBC) [Entitic mass] 32.7 pg 27 - [facility] MCHC (RBC) [Mass/Vol] 34.4 g/dL 32 - 3 6 g/dL [facility] MCV (RBC) [Entitic vol] 95 fL 80 - 100 fL [facility] Monocytes (Bld) [#/Vol] 0.4 10*3/uL [facility] Monocytes/100 WBC (Bld) 3.3 % [facility] Neutrophils (Bld) [#/Vol] 12.4 10*3/uL High [facility] Neutrophils/100 WBC (Bld) 93.2 % [facility] Platelet mean volume (Bld) [Entitic vol] 7 fL 7 - 12 fL [facility] Platelets (Bld) [#/Vol] 270 10*3/uL [facility] RBC (Bld) [#/Vol] 2.72 10*6/uL Low [facility] WBC corrected for nucl RBC Auto (Bld) [#/Vol] 13.3 High [facility] Lactate (P ibeth) [Moles/Vol]o n 01-01-2024 LACTATE W/REFLEX 0.6 mmol/L Normal 0.4-2.0 [facility] Comment on above: Result Comment: Result did not trigger repeat Lactate, re-order if needed. Performed By: #### I #### [facility] ([id number]) [address] [place] [address] Lactate w/ Reflexon 01-01-20 Lactate (P ibeth) [Moles/Vol] 0.6 mmol/L 0.4 - 2.0 mmol/L [facility] Comment on above: Result did not trigger repeat Lactate, re-order if needed. No Panel Informationon 12-31 [facility] POCT ABG Rapid NA K GLU ICA HHon 01-01-2024 Arterial patency Wrist artery --pre arterial puncture [facility] Base deficit (Bld) [Moles/Vol] 2.6 mmol/L High [facility] Calcium.ionized ISE [Moles/Vol] 5 mg/dL 4.5 - 5.3 mg/dL [facility] CO2 (Bld) [Partial pressure] 39.3 mm[Hg] [facility] Glucose [Mass/Vol] 111 mg/dL High 65 - 99 mg/dL [facility] HCO3 (Bld) [Moles/Vol] 22.7 mmol/L P [facility] Hematocrit (Bld) [Volume fraction] 22 % Low 35 - 47 % [facility] Hemoglobin (Bld) [Mass/Vol] 7.3 g/dL Low 11.7 - 15.5 g/dL [facility] Interpretation and review of laboratory results Abnormal [facility] Oxygen (Bld) [Partial pressure] 195 mm[Hg] High [facility] Oxygen/Inspired gas setting [Volume Fraction] Ventilator 60 % [facility] pH (Bld) 7.37 [pH] 7.350 - 7.450 [facility] Potassium [Moles/Vol] 3.9 mmol/L 3.5 - 5.0 mmol/L [facility] Sodium [Moles/Vol] 140 mmol/L 134 - 146 mmol/L [facility] Specimen site Narrative [facility] Specimen type Nom (Spec) Arterial [facility] PROTIME AND INRon 01-01-2024 INR Coag (PPP) [Relative time] 1.2 {INR} High 0.8-1.1 [facility] Comment on above: Performed By: #### I BC #### [facility] ([id number]) [address] [place] [address] PT Coag (PPP) [Time] 13.7 s High 9.8-13.2 [facility] Comment on above: Performed By: #### I BC #### [facility] ([id number]) [address] [place] [address] Protime & INRon 01-01-2024 INR Coag (PPP) [Relative time] 1.2 {INR} High [facility] Interpretation and review of laboratory results Abnormal [facility] PT Coag (PPP) [Time] 13.7 s High [facility] RAPID CARDIAC W/ NAon 2023 AKILAH'S TEST Normal [facility] Comment on above: Performed By: #### I BC #### [facility] ([id number]) [address] [place] [address] BASE,DEFICIT 2.6 MMOL/L High 0.0-2.0 [facility] Comment on above: Performed By: #### I BC #### [facility] ([id number]) [address] [place] [address] Body temperature 98.6 [degF] Normal 37.0 [facility] Comment on above: Performed By: #### I BC #### [facility] ([id number]) [address] [place] [address] Glucose [Mass/Vol] 111 mg/dL High 65-99 [facility] Comment on above: Performed By: #### I BC #### [facility] ([id number]) [address] [place] [address] HCO3 (Bld) [Moles/Vol] 22.7 mmol/L Normal 22-26 P [facility] Comment on above: Performed By: #### I BC #### [facility] ([id number]) [address] [place] [address] Hematocrit (Bld) [Volume fraction] 22 % Low 35-47 [facility] Comment on above: Performed By: #### I BC #### [facility] ([id number]) [address] [place] [address] Hemoglobin (Bld) [Mass/Vol] 7.3 g/dL Low 11.7-15.5 [facility] Comment on above: Performed By: #### I BC #### [facility] ([id number]) [address] [facility] [place] [address] INSP. O2 CONC. 60 % Normal [facility] Comment on above: Performed By: #### I BC #### [facility] ([id number]) [address] [facility] [place] [address] IONIZED CALCIUM 5.0 mg/dL Normal 4.5-5.3 [facility] Comment on above: Performed By: #### I BC #### [facility] ([id number]) [address] [place] [address] Oxygen (Bld) [Partial pressure] 195 mm[Hg] High 80-100 [facility] Comment on above: Performed By: #### I BC #### [facility] ([id number]) [address] [place] [address] Oxygen saturation in Blood 100.3 % Normal >90 [facility] Comment on above: Performed By: #### I BC #### [facility] ([id number]) [address] [place] [address] PCO2 39.3 MMHG Normal 35-45 [facility] Comment on above: Performed By: #### I BC #### [facility] ([id number]) [address] [place] [address] pH (Bld) 7.370 [pH] Normal 7.350-7.45 0 [facility] Comment on above: Performed By: #### I BC #### [facility] ([id number]) [address] [place] [address] Potassium [Moles/Vol] 3.9 mmol/L Normal 3.5-5.0 [facility] Comment on above: Performed By: #### I BC #### [facility] ([id number]) [address] [place] [address] SAMPLE SITE ASBA Normal [facility] Comment on above: Performed By: #### I BC #### [facility] ([id number]) [address] [facility] [place] [address] SAMPLE TYPE Arterial Normal [facility] Comment on above: Performed By: #### I BC #### [facility] ([id number]) [address] [facility] [place] [address] Sodium [Moles/Vol] 140 mmol/L Normal 134-146 [facility] Comment on above: Performed By: #### I BC #### [facility] ([id number]) [address] [facility] [place] [address] RFA Guidance for vascular ac cess of Vesselon 01-01-2024 Please refer to the vascular OP note for a dictation on this exam. [facility] APTTon 12-31-2023 aPTT Coag (PPP) [Time] 36 s Pr [facility] BASIC METABOLIC PANLon 12-30 Anion gap [Moles/Vol] 13 mmol/L Normal 5-15 [facility] Comment on above: Performed By: #### C BCA, PINR, [id number], BMP #### [facility] ([id number]) [address] [place] [address] Calcium [Mass/Vol] 9.9 mg/dL Normal 8.5-10.5 [facility] Comment on above: Performed By: #### C BCA, PINR, [id number], BMP #### [facility] ([id number]) [address] [place] [address] Chloride [Moles/Vol] 104 mmol/L Normal 98-109 [facility] Comment on above: Performed By: #### C BCA, PINR, [id number], BMP #### [facility] ([id number]) [address] [place] [address] CO2 [Moles/Vol] 22 mmol/L Normal 22-32 [facility] Comment on above: Performed By: #### C BCA, PINR, [id number], BMP #### [facility] ([id number]) [address] [place] [address] Creatinine [Mass/Vol] 1.18 mg/dL High 0.40-1.00 [facility] Comment on above: Result Comment: METH OD TRACEABLE TO IDMS STANDARD Performed By: #### C BCA, PINR, 91183-7, BMP #### [facility] [facility] ([id number]) [address] [address] [place] [address] GFR/1.73 sq M.predicted among non-blacks MDRD (S/P/Bld) [Vol rate/Area] 45 mL/min/{1.73_m2} Low >59 [facility] Comment on above: Result Comment: Reported eGFR is based on the CKD-EPI 2020 equation that does not use a race coefficient. Performed By: #### C BCA, PINR, 67357-0, BMP #### [facility] ([id number]) [address] [address] [place] [address] Glucose [Mass/Vol] 85 mg/dL Normal 65-99 [facility] Comment on above: Performed By: #### C BCA, PINR, 02915-3, BMP #### [facility] ([id number]) [address] [address] [place] [address] Potassium [Moles/Vol] 4.2 mmol/L Normal 3.5-5.0 [facility] Comment on above: Performed By: #### C BCA, PINR, 40778-1, BMP #### [facility] ([id number]) [address] [address] [place] [address] Sodium [Moles/Vol] 139 mmol/L Normal 134-146 [facility] Comment on above: Performed By: #### C BCA, PINR, 80992-5, BMP #### [facility] ([id number]) [address] [address] [place] [address] Urea nitrogen [Mass/Vol] 25 mg/dL Normal 5-27 [facility] Comment on above: Performed By: #### C RAUL LAKHANIR, 51768-3, BMP #### [facility] ([id number]) [address] [place] [address] Basic Metabolic Panelon 11-2 Anion gap [Moles/Vol] 13 mmol/L 5 - 15 mmol/L [facility] Calcium [Mass/Vol] 9.9 mg/dL 8.5 - 10. 5 mg/dL [facility] Chloride [Moles/Vol] 104 mmol/L 98 - 10 9 mmol/L [facility] CO2 [Moles/Vol] 22 mmol/L 22 - 32 mmol/L [facility] Creatinine [Mass/Vol] 1.18 mg/dL High 0.40 - 1.00 mg/dL [facility] Comment on above: METHOD TRACEABLE TO [facility] STANDARD eGFR (CKD-EPI)non-race dependent 45 Low - PINF [facility] Comment on above: Reported eGFR is based on the CKD-EPI 2020 equation that does not use a race coefficient. Glucose [Mass/Vol] 85 mg/dL 65 - 99 mg/dL [facility] Interpretation and review of laboratory results Abnormal [facility] Potassium [Moles/Vol] 4.2 mmol/L 3.5 - 5.0 mmol/L [facility] Sodium [Moles/Vol] 139 mmol/L 134 - 146 mmol/L [facility] Urea nitrogen [Mass/Vol] 25 mg/dL 5 - 27 mg/dL [facility] CBC AND AUTO DIFFon 12-31-19 ABSOLUTE BASOPHIL 0.0 X10E9/L Normal 0.0-0.2 [facility] Comment on above: Performed By: #### C LESVIA PINR, 47857-2, BMP #### [facility] ([id number]) [address] [place] [address] ABSOLUTE NEUTROPHIL 5.3 X10E9/L Normal 1.5-6.6 [facility] Comment on above: Performed By: #### C LESVIA, PINR, 54161-3, BMP #### [facility] ([id number]) [address] [place] [address] Basophils/100 WBC (Bld) 0.7 % Normal [facility] Comment on above: Performed By: #### C LESVIA, PINR, 73693-4, BMP #### [facility] ([id number]) [address] [place] [address] Eosinophils (Bld) [#/Vol] 0.1 10*3/uL Normal 0.0-0.4 [facility] Comment on above: Performed By: #### C LESVIA, PINR, 97448-6, BMP #### [facility] ([id number]) [address] [place] [address] Eosinophils/100 WBC (Bld) 0.9 % Normal [facility] Comment on above: Performed By: #### Jeny LAKHANI, PINR, 30983-3, BMP #### [facility] ([id number]) [address] [place] [address] Erythrocyte distribution width (RBC) [Ratio] 16.7 % High 11.5-15.0 [facility] Comment on above: Performed By: #### Jeny LAKHANI PINR, 32946-1, BMP #### [facility] ([id number]) [address] [place] [address] Hematocrit (Bld) [Volume fraction] 29.8 % Low 35-47 [facility] Comment on above: Performed By: #### C LESVIA, PINR, 67873-4, BMP #### [facility] ([id number]) [address] [place] [address] Hemoglobin (Bld) [Mass/Vol] 10.3 g/dL Low 11.7-15.5 [facility] Comment on above: Performed By: #### C LESVIA PINR, 51999-6, BMP #### [facility] ([id number]) [address] [place] [address] Lymphocytes (Bld) [#/Vol] 1.3 10*3/uL Normal 1.0-3.5 [facility] Comment on above: Performed By: #### C LESVIA PINDoug, 31017-2, BMP #### [facility] ([id number]) [address] [place] [address] Lymphocytes/100 WBC (Bld) 17.3 % Normal [facility] Comment on above: Performed By: #### C LESVIA, PINR, 52434-1, BMP #### [facility] ([id number]) [address] [place] [address] MCH (RBC) [Entitic mass] 34.6 pg High 27-34 [facility] Comment on above: Performed By: #### C LESVIA PINR, 20966-9, BMP #### [facility] ([id number]) [address] [place] [address] MCHC (RBC) [Mass/Vol] 34.5 g/dL Normal 32-36 [facility] Comment on above: Performed By: #### Jeny LAKHANI PINR, 28908-3, BMP #### [facility] ([id number]) [address] [place] [address] MCV (RBC) [Entitic vol] 100 fL Normal 80-100 [facility] Comment on above: Performed By: #### C LESVIA PINR, 00891-0, BMP #### [facility] ([id number]) [address] [place] [address] Monocytes (Bld) [#/Vol] 0.8 10*3/uL Normal 0-0.9 [facility] Comment on above: Performed By: #### C LESVIA, PINR, 75368-8, BMP #### [facility] ([id number]) [address] [place] [address] Monocytes/100 WBC (Bld) 10.3 % Normal [facility] Comment on above: Performed By: #### Jeny LAKHANI, PINR, 13808-2, BMP #### [facility] ([id number]) [address] [place] [address] Neutrophils/100 WBC (Bld) 70.8 % Normal [facility] Comment on above: Performed By: #### Jeny LAKHANI, PINR, 00924-2, BMP #### [facility] ([id number]) [address] [place] [address] Platelet mean volume (Bld) [Entitic vol] 7.6 fL Normal 7-12 [facility] Comment on above: Performed By: #### Jeny LAKHANI, PINR, 59923-5, BMP #### [facility] ([id number]) [address] [place] [address] Platelets (Bld) [#/Vol] 387 10*3/uL Normal 150-450 [facility] Comment on above: Performed By: #### Jeny LAKHANI, PINR, 58926-2, BMP #### [facility] ([id number]) [address] [place] [address] RBC COUNT 2.97 X10E12/L Low 3.80-5.20 [facility] Comment on above: Performed By: #### Jeny LAKHANI, PINR, 00133-9, BMP #### [facility] ([id number]) [address] [place] [address] WBC (Bld) [#/Vol] 7.5 10*3/uL Normal 4.0-11.0 [facility] Comment on above: Performed By: #### C BCA, PINR, 95754-4, BMP #### [facility] ([id number]) [address] [facility] [facility] [address] [place] [address] CBC auto differentialon 12-10 Basophils (Bld) [#/Vol] 0 10*3/uL [facility] Basophils/100 WBC (Bld) 0.7 % [facility] Eosinophils (Bld) [#/Vol] 0.1 10*3/uL [facility] Eosinophils/100 WBC (Bld) 0.9 % [facility] Erythrocyte distribution width (RBC) [Ratio] 16.7 % High 11.5 - 15.0 % [facility] Hematocrit (Bld) [Volume fraction] 29.8 % Low 35 - 47 % [facility] Hemoglobin (Bld) [Mass/Vol] 10.3 g/dL Low 11.7 - 15.5 g/dL [facility] Interpretation and review of laboratory results Abnormal [facility] Lymphocytes (Bld) [#/Vol] 1.3 10*3/uL [facility] Lymphocytes/100 WBC (Bld) 17.3 % [facility] MCH (RBC) [Entitic mass] 34.6 pg High 27 - 34 pg [facility] MCHC (RBC) [Mass/Vol] 34.5 g/dL 32 - 3 6 g/dL [facility] MCV (RBC) [Entitic vol] 100 fL 80 - 100 fL [facility] Monocytes (Bld) [#/Vol] 0.8 10*3/uL [facility] Monocytes/100 WBC (Bld) 10.3 % [facility] Neutrophils (Bld) [#/Vol] 5.3 10*3/uL [facility] Neutrophils/100 WBC (Bld) 70.8 % [facility] Platelet mean volume (Bld) [Entitic vol] 7.6 fL 7 - 12 fL [facility] Platelets (Bld) [#/Vol] 387 10*3/uL [facility] RBC (Bld) [#/Vol] 2.97 10*6/uL Low [facility] WBC corrected for nucl RBC Auto (Bld) [#/Vol] 7.5 [facility] No Panel Informationon 12-30 [facility] PROTIME AND INRon 12-31-2023 INR Coag (PPP) [Relative time] 1.1 {INR} Normal 0.8-1.1 [facility] Comment on above: Performed By: #### C ROSA LAKHANI, 26389-5, BMP #### [facility] ([id number]) [address] [place] [address] PT Coag (PPP) [Time] 12.5 s Normal 9.8-13.2 [facility] Comment on above: Performed By: #### C ROSA LAKHANI, 26257-3, BMP #### [facility] ([id number]) [address] [place] [address] Protime-INRon 12-31-2023 INR Coag (PPP) [Relative time] 1.1 {INR} [facility] PT Coag (PPP) [Time] 12.5 s [facility] Type and screen(includes ind irect chi)on 12-31-2023 ABO A [facility] Rh Nom (Bld) Positive [facility] URINALYSISon 12-31-2023 Bilirubin Ql (U) Negative Normal NEG [facility] Comment on above: Performed By: #### U A #### [facility] ([id number]) [address] [place] [address] BLOOD/HGB Negative Normal NEG [facility] Comment on above: Performed By: #### U A #### [facility] ([id number]) [address] [place] [address] Color (U) YELLOW Normal YELLOW [facility] Comment on above: Performed By: #### U A #### [facility] ([id number]) [address] [place] [address] Glucose Ql (U) Negative Normal NEG [facility] Comment on above: Performed By: #### U A #### [facility] ([id number]) [address] [place] [address] Ketones Ql (U) Negative Normal NEG [facility] Comment on above: Performed By: #### U A #### [facility] ([id number]) [address] [place] [address] Leukocyte esterase Test strip Ql (U) MODERATE Abnormal NEG [facility] Comment on above: Performed By: #### U A #### [facility] ([id number]) [address] [place] [address] MUCOUS PRESENT Abnormal NONE [facility] Comment on above: Performed By: #### U A #### [facility] ([id number]) [address] [place] [address] Nitrite Ql (U) Positive Abnormal NEG [facility] Comment on above: Performed By: #### U A #### [facility] ([id number]) [address] [place] [address] pH (U) 6.0 [pH] Normal 5.0-8.5 [facility] Comment on above: Performed By: #### U A #### [facility] ([id number]) [address] [place] [address] Protein Ql (U) Negative Normal NEG [facility] Comment on above: Performed By: #### U A #### [facility] ([id number]) [address] [place] [address] R.B.CELLS <1 Normal 0-5 [facility] Comment on above: Performed By: #### U A #### [facility] ([id number]) [address] [place] [address] Specific gravity (U) [Rel density] 1.016 Normal 1.003-1.03 5 [facility] Comment on above: Performed By: #### U A #### [facility] ([id number]) [address] [place] [address] SQUAMOUS EPITHELIUM 1 /hpf Normal 0-5 [facility] Comment on above: Performed By: #### U A #### [facility] ([id number]) [address] [place] [address] TURBIDITY CLEAR Normal CLEAR [facility] Comment on above: Performed By: #### U A #### [facility] ([id number]) [address] [place] [address] Urobilinogen (U) [Mass/Vol] mg/dL Normal <1.1 [facility] Comment on above: Performed By: #### U A #### [facility] ([id number]) [address] [place] [address] W.B.CELLS 30 /hpf High 0-5 [facility] Comment on above: Performed By: #### U A #### [facility] ([id number]) [address] [place] [address] Urinalysison 12-31-2023 Bilirubin Ql (U) Negative Negative^N egative [facility] Color (U) YELLOW YELLOW^YEL LOW [facility] Epithelial cells Auto (Urine sed) [#/Area] 1 [facility] Glucose (U) [Mass/Vol] Negative Negat jamar^N egative mg/dL [facility] Hemoglobin Auto test strip Ql (U) Negative Negative^N egative [facility] Interpretation and review of laboratory results Abnormal [facility] Ketones (U) [Mass/Vol] Negative Negat jamar^N egative mg/dL [facility] Leukocyte esterase Auto test strip Ql (U) MODERATE Abnormal Negative^N egative [facility] Mucus Ql (Urine sed) PRESENT Abnormal NONE^NONE [facility] Nitrite Auto test strip Ql (U) Positive Abnormal Negative^N egative [facility] pH (U) 6 [pH] 5.0 - 8.5 [facility] Protein (U) [Mass/Vol] Negative Negat jamar^N egative mg/dL [facility] RBC Auto (Urine sed) [#/Area] [facility] Specific gravity Refractometry automated (U) [Rel density] 1.016 1.003 - 1.035 [facility] Turbidity Ql (U) CLEAR CLEAR^EMMETT R [facility] Urobilinogen Qn (U) NINF [facility] WBC Auto (Urine sed) [#/Area] 30 High [facility] aPTT Coag (PPP) [Time]on aPTT Coag (Bld) [Time] 36 s Normal 26-37 [facility] Comment on above: Performed By: #### C BCA, PINR, 73808-3, BMP #### [facility] ([id number]) [address] [address] [place] [address] BASIC METABOLIC PANLon 12-21 Anion gap [Moles/Vol] 8 mmol/L Normal 5-15 [facility] Comment on above: Performed By: #### P INR, 22552-2 #### [facility] ([id number]) [address] [place] [address] #### BMP, CBC #### [facility] ([id number]) [address] [address] [place] [address] Calcium [Mass/Vol] 9.5 mg/dL Normal 8.5-10.5 [facility] Comment on above: Performed By: #### P INR, 34776-7 #### [facility] ([id number]) [address] [place] [address] #### BMP, CBC #### [facility] ([id number]) [address] [place] [address] Chloride [Moles/Vol] 108 mmol/L Normal 98-109 [facility] Comment on above: Performed By: #### P INR, 76643-5 #### [facility] ([id number]) [address] [place] [address] #### BMP, CBC #### [facility] ([id number]) [address] [place] [address] CO2 [Moles/Vol] 24 mmol/L Normal 22-32 [facility] Comment on above: Performed By: #### P INR, 84100-0 #### [facility] ([id number]) [address] [place] [address] #### BMP, CBC #### [facility] ([id number]) [address] [place] [address] Creatinine [Mass/Vol] 1.26 mg/dL High 0.40-1.00 [facility] Comment on above: Result Comment: METH OD TRACEABLE TO [facility] STANDARD Performed By: #### P INR, 73019-7 #### [facility] ([id number]) [address] [place] [address] #### BMP, CBC #### [facility] ([id number]) [address] [place] [address] GFR/1.73 sq M.predicted among non-blacks MDRD (S/P/Bld) [Vol rate/Area] 41 mL/min/{1.73_m2} Low >59 [facility] Comment on above: Result Comment: Reported eGFR is based on the CKD-EPI 2020 equation that does not use a race coefficient. Performed By: #### P INR, 56367-4 #### [facility] ([id number]) [address] [place] [address] #### BMP, CBC #### [facility] ([id number]) [address] [place] [address] Glucose [Mass/Vol] 96 mg/dL Normal 65-99 [facility] Comment on above: Performed By: #### P INR, 93406-0 #### [facility] ([id number]) [address] [place] [address] #### BMP, CBC #### [facility] ([id number]) [address] [place] [address] Potassium [Moles/Vol] 4.9 mmol/L Normal 3.5-5.0 [facility] Comment on above: Performed By: #### P INR, 45222-5 #### [facility] ([id number]) [address] [place] [address] #### BMP, CBC #### [facility] ([id number]) [address] [place] [address] Sodium [Moles/Vol] 140 mmol/L Normal 134-146 [facility] Comment on above: Performed By: #### P INR, 17660-1 #### [facility] ([id number]) [address] [place] [address] #### BMP, CBC #### [facility] ([id number]) [address] [place] [address] Urea nitrogen [Mass/Vol] 28 mg/dL High 5-27 [facility] Comment on above: Performed By: #### P INR, 99329-1 #### [facility] ([id number]) [address] [place] [address] #### BMP, CBC #### [facility] ([id number]) [address] [place] [address] COMPLETE BLOOD COUNTon 12-21 Erythrocyte distribution width (RBC) [Ratio] 16.8 % High 11.5-15.0 [facility] Comment on above: Performed By: #### P INR, 96437-9 #### [facility] ([id number]) [address] [place] [address] #### BMP, CBC #### [facility] ([id number]) [address] [facility] [address] [place] [address] Hematocrit (Bld) [Volume fraction] 27.2 % Low 35-47 [facility] Comment on above: Performed By: #### P INR, 93964-6 #### [facility] ([id number]) [address] [place] [address] #### BMP, CBC #### [facility] ([id number]) [address] [facility] [facility] [place] [address] Hemoglobin (Bld) [Mass/Vol] 9.3 g/dL Low 11.7-15.5 [facility] Comment on above: Performed By: #### P INR, 65439-2 #### [facility] ([id number]) [address] [place] [address] #### BMP, CBC #### [facility] ([id number]) [address] [place] [address] MCH (RBC) [Entitic mass] 34.7 pg High 27-34 [facility] Comment on above: Performed By: #### P INR, 84109-5 #### [facility] ([id number]) [address] [place] [address] #### BMP, CBC #### [facility] ([id number]) [address] [place] [address] MCHC (RBC) [Mass/Vol] 34.1 g/dL Normal 32-36 [facility] Comment on above: Performed By: #### P INR, 70455-4 #### [facility] ([id number]) [address] [place] [address] #### BMP, CBC #### [facility] ([id number]) [address] [place] [address] MCV (RBC) [Entitic vol] 102 fL High 80-100 [facility] Comment on above: Performed By: #### P INR, 61617-6 #### [facility] ([id number]) [address] [place] [address] #### BMP, CBC #### [facility] ([id number]) [address] [facility] [facility] [place] [address] Platelet mean volume (Bld) [Entitic vol] 8.2 fL Normal 7-12 [facility] Comment on above: Performed By: #### P INR, 48943-9 #### [facility] ([id number]) [address] [place] [address] #### BMP, CBC #### [facility] ([id number]) [address], [address] [place] [address] Platelets (Bld) [#/Vol] 288 10*3/uL Normal 150-450 [facility] Comment on above: Performed By: #### P INR, 09354-6 #### [facility] ([id number]) [address] [place] [address] #### BMP, CBC #### [facility] ([id number]) [address], [address] [place] [address] RBC COUNT 2.67 X10E12/L Low 3.80-5.20 [facility] Comment on above: Performed By: #### P INR, 89261-2 #### [facility] ([id number]) [address] [place] [address] #### BMP, CBC #### [facility] ([id number]) [address], [address] [place] [address] WBC (Bld) [#/Vol] 8.7 10*3/uL Normal 4.0-11.0 [facility] Comment on above: Performed By: #### P INR, 73503-6 #### [facility] ([id number]) [address] [place] [address] #### BMP, CBC #### [facility] [facility] ([id number]) [address], [address] [place] [address] PROTIME AND INRon 12-22-2023 INR Coag (PPP) [Relative time] 1.0 {INR} Normal 0.8-1.1 [facility] Comment on above: Performed By: #### P INR, 13201-6 #### [facility] ([id number]) [address] [place] [address] #### BMP, CBC #### [facility] ([id number]) [address], [address] [place] [address] PT Coag (PPP) [Time] 12.0 s Normal 9.8-13.2 [facility] Comment on above: Result Comment: NEW REFERENCE RANGE Performed By: #### P INR, 70146-8 #### [facility] ([id number]) [address] [place] [address] #### BMP, CBC #### [facility] ([id number]) [address], [address] [place] [address] aPTT Coag (PPP) [Time]on aPTT Coag (Bld) [Time] 28 s Normal 26-[address] [facility] [place] [place] Comment on above: Result Comment: NEW REFERENCE RANGE Performed By: #### P INR, 82381-6 #### [facility] ([id number]) [address] [facility], [place] [address] #### BMP, CBC #### [facility] ([id number]) [address] [facility], [address] [place] [address] XR Hip - left 3 Viewson 12-09 Imaging Result: 12/14/2023: AP and lateral of left hip showed acceptable position and alignment of left total hip arthroplasty. There was no evidence of loosening of the acetabular cup or femoral stem. Femoral head was well centered in the acetabular liner without evidence of asymmetric or accelerated wear. There was no gross evidence of fracture and/or dislocation. Impression: Unremarkable left total hip arthroplasty. Sunny Ingram [employer]IST[employer] [facility] [employer] XR Hip - left 3 ViewsOrdered By: Mi Licea on 12-21-2023 [facility] Work Phone: 36on 12-16-2023 36 Spoke with patient's daughter Joanna. She said Delicia's BP is still all over the place. She's trying to get her mother to take her meds at the same time everyday, but this doesn't always happen. Bystolic 10mg daily was sent into [facility] on 12/01 so she will double the 5mg tablets for now. I asked her to make sure her mother is checking BP/HR 2 hours after medications. I told her I'd call back in 2 weeks or so to check on her numbers. She verbalized understanding. Normal [facility] XR Hip - left 3 View[facility] Radiology Study observation (narrative) [facility] 36on 11-30-2023 36 Please have her increase nebivolol to 10mg daily. Follow-up BP/HR phone call in 1-2 weeks. Please make sure she is checking her BP 2 hours after medications. Her ECHO showed normal pumping function. Some moderate left sided enlargement from elevated blood pressure. Also noted some moderately leaky tricuspid valve, and mild to mod leaky mitral valve that we will just monitor with routine ECHOs. Thanks! Normal [facility] BASIC METABOLIC PANLon 11-18 Anion gap [Moles/Vol] 9 mmol/L Normal 5-15 [facility] Comment on above: Performed By: #### Jeny MARTÍNEZ, BMP #### [facility] ([id number]) [address] [place] [address] Calcium [Mass/Vol] 9.3 mg/dL Normal 8.5-10.5 [facility] Comment on above: Performed By: #### Jeny MARTÍNEZ, BMP #### [facility] ([id number]) [address], [facility] [address] [place] [address] Chloride [Moles/Vol] 106 mmol/L Normal 98-109 [facility] Comment on above: Performed By: #### Jeny MARTÍNEZ, BMP #### [facility] ([id number]) [address], [address] [place] [address] CO2 [Moles/Vol] 22 mmol/L Normal 22-32 [facility] Comment on above: Performed By: #### Jeny MARTÍNEZ, BMP #### [facility] ([id number]) [address], [facility] [address] [place] [address] Creatinine [Mass/Vol] 1.14 mg/dL High 0.40-1.00 [facility] Comment on above: Result Comment: METH OD TRACEABLE TO IDMS STANDARD Performed By: #### Jeny MARTÍNEZ, BMP #### [facility] ([id number]) [address] [address] [place] [address] GFR/1.73 sq M.predicted among non-blacks MDRD (S/P/Bld) [Vol rate/Area] 47 mL/min/{1.73_m2} Low >59 [facility] Comment on above: Result Comment: Reported eGFR is based on the CKD-EPI 2021 equation that does not use a race coefficient. Performed By: #### C TANYA, BMP #### [facility] ([id number]) [address], [address] [place] [address] Glucose [Mass/Vol] 125 mg/dL High 65-99 [facility] Comment on above: Performed By: #### C TANYA, BMP #### [facility] ([id number]) [address], [address] [place] [address] Potassium [Moles/Vol] 5.7 mmol/L High 3.5-5.0 [facility] Comment on above: Performed By: #### C TANYA, BMP #### [facility] ([id number]) [address], [address] [place] [address] Sodium [Moles/Vol] 137 mmol/L Normal 134-146 [facility] Comment on above: Performed By: #### C TANYA, BMP #### [facility] ([id number]) [address], [address] [place] [address] Urea nitrogen [Mass/Vol] 32 mg/dL High 5-27 [facility] Comment on above: Performed By: #### C TANYA, BMP #### [facility] ([id number]) [address], [address] [place] [address] COMPLETE BLOOD COUNTon 11-18 Erythrocyte distribution width (RBC) [Ratio] 15.0 % Normal 11.5-15.0 [facility] Comment on above: Performed By: #### C TANYA, BMP #### [facility] ([id number]) [address], [address] [place] [address] Hematocrit (Bld) [Volume fraction] 33.0 % Low 35-47 [facility] Comment on above: Performed By: #### C TANYA, BMP #### [facility] ([id number]) [address], [address] [place] [address] Hemoglobin (Bld) [Mass/Vol] 11.6 g/dL Low 11.7-15.5 [facility] Comment on above: Performed By: #### C TANYA, BMP #### [facility] ([id number]) [address], [address] [place] [address] MCH (RBC) [Entitic mass] 34.4 pg High 27-34 [facility] Comment on above: Performed By: #### C TANYA, BMP #### [facility] ([id number]) [address], [address] [place] [address] MCHC (RBC) [Mass/Vol] 35.1 g/dL Normal 32-36 [facility] Comment on above: Performed By: #### C TANYA, BMP #### [facility] ([id number]) [address], [address] [place] [address] MCV (RBC) [Entitic vol] 98 fL Normal 80-100 [facility] Comment on above: Performed By: #### Jeny MARTÍNEZ, BMP #### [facility] ([id number]) [address], [address] [place] [address] Platelet mean volume (Bld) [Entitic vol] 8.4 fL Normal 7-12 [facility] Comment on above: Performed By: #### C TANYA, BMP #### [facility] ([id number]) [address], [address] [place] [address] Platelets (Bld) [#/Vol] 227 10*3/uL Normal 150-450 [facility] Comment on above: Performed By: #### C TANYA, BMP #### [facility] ([id number]) [address], [address] [place] [address] RBC COUNT 3.36 X10E12/L Low 3.80-5.20 [facility] Comment on above: Performed By: #### Jeny MARTÍNEZ, BMP #### [facility] ([id number]) [address], [address] [place] [address] WBC (Bld) [#/Vol] 6.1 10*3/uL Normal 4.0-11.0 [facility] Comment on above: Performed By: #### C BC, BMP #### [facility] ([id number]) [address], [address] [place] [address] POC BUN CREATon 11-18-2023 Creatinine [Mass/Vol] 1.3 mg/dL High 0.4-1.0 [facility] Comment on above: Result Comment: METH OD TRACEABLE TO IDMS STANDARD Performed By: #### I BC #### [facility] ([id number]) [address] [place] [address] GFR/1.73 sq M.predicted among non-blacks MDRD (S/P/Bld) [Vol rate/Area] 40 mL/min/{1.73_m2} Low >59 [facility] Comment on above: Result Comment: Reported eGFR is based on the CKD-EPI 2020 equation that does not use a race coefficient. Performed By: #### I BC #### [facility] ([id number]) [address] [place] [address] Urea nitrogen [Mass/Vol] 32 mg/dL High 6-27 [facility] Comment on above: Performed By: #### I BC #### [facility] ([id number]) [address] [place] [address] RAPID CARDIACon 11-18-2023 AKILAH'S TEST Normal [facility] Comment on above: Performed By: #### A FAB5 #### [facility] ([id number]) [address] [place] [address] BASE,DEFICIT 1.2 MMOL/L Normal 0.0-2.0 [facility] Comment on above: Performed By: #### A FAB5 #### [facility] ([id number]) [address] [place] [address] Body temperature 98.6 [degF] Normal 37.0 [facility] Comment on above: Performed By: #### A FAB5 #### [facility] ([id number]) [address] [place] [address] Glucose [Mass/Vol] 96 mg/dL Normal 65-99 [facility] Comment on above: Performed By: #### A FAB5 #### [facility] ([id number]) [address] [place] [address] HCO3 (Bld) [Moles/Vol] 23.5 mmol/L Normal 22-26 [facility] Comment on above: Performed By: #### A FAB5 #### [facility] ([id number]) [address] [place] [address] Hematocrit (Bld) [Volume fraction] 31 % Low 35-47 [facility] Comment on above: Performed By: #### A FAB5 #### [facility] ([id number]) [address] [place] [address] Hemoglobin (Bld) [Mass/Vol] 10.2 g/dL Low 11.7-15.5 [facility] Comment on above: Performed By: #### A FAB5 #### [facility] ([id number]) [address] [place] [address] INSP. O2 CONC. 100 % Normal [facility] Comment on above: Performed By: #### A FAB5 #### [facility] ([id number]) [address] [place] [address] IONIZED CALCIUM 5.2 mg/dL Normal 4.5-5.3 [facility] Comment on above: Performed By: #### A FAB5 #### [facility] ([id number]) [address] [place] [address] Oxygen (Bld) [Partial pressure] 270 mm[Hg] High 80-100 [facility] Comment on above: Performed By: #### A FAB5 #### [facility] ([id number]) [address] [place] [address] Oxygen saturation in Blood 100.2 % Normal >90 [facility] Comment on above: Performed By: #### A FAB5 #### [facility] ([id number]) [address] [place] [address] PCO2 37.2 MMHG Normal 35-45 [facility] Comment on above: Performed By: #### A FAB5 #### [facility] ([id number]) [address] [place] [address] pH (Bld) 7.408 [pH] Normal 7.350-7.45 0 [facility] Comment on above: Performed By: #### A FAB5 #### [facility] ([id number]) [address] [place] [address] Potassium [Moles/Vol] 4.3 mmol/L Normal 3.5-5.0 [facility] Comment on above: Performed By: #### A FAB5 #### [facility] ([id number]) [address] [place] [address] SAMPLE SITE SABA Normal [facility] Comment on above: Performed By: #### A FAB5 #### [facility] ([id number]) [address] [place] [address] SAMPLE TYPE Arterial Normal [facility] Comment on above: Performed By: #### A FAB5 #### [facility] ([id number]) [address] [place] [address] Office Visiton 11-09-2023 Follow-up visit [id number] Delicia Hsu 1935 F Date Provider Department Center 11/09/2023 KYREE PANTOJA [facility] Family History Problem Relation Age of Onset Aneurysm Mother Heart attack Father Family Status - Relation Status Age at Mother Father Level of Service:91027 [place] OFFICE/OUTPATIENT ESTABLISHED MOD MDM 30 MIN Reason for Visit and Comments: Pre-op Exam [197974] Hypertension [736352] Coronary Artery Disease [187] Normal [facility] Telephoneon 11-09-2023 Telephone [id number] Delicia Hsu 1935 F Date Provider Department Center 11/09/2023 NATALIYA ERNST [facility] Family History Problem Relation Age of Onset Aneurysm Mother Heart attack Father Family Status - Relation Status Age at Mother Father Normal [facility] POC BUN CREATon 11-05-2023 Creatinine [Mass/Vol] 1.6 mg/dL High 0.4-1.0 [facility] Comment on above: Result Comment: METH OD TRACEABLE TO IDMS STANDARD Performed By: #### I BC #### [facility] ([id number]) [address] [place] [address] GFR/1.73 sq M.predicted among non-blacks MDRD (S/P/Bld) [Vol rate/Area] 31 mL/min/{1.73_m2} Low >59 [facility] Comment on above: Result Comment: Reported eGFR is based on the CKD-EPI 2020 equation that does not use a race coefficient. Performed By: #### I BC #### [facility] ([id number]) [address] [place] [address] Urea nitrogen [Mass/Vol] 25 mg/dL Normal 6-27 [facility] Comment on above: Performed By: #### I BC #### [facility] ([id number]) [address] [place] [address] BASIC METABOLIC PANLon 10-26 Anion gap [Moles/Vol] 11 mmol/L Normal 5-15 [facility] Comment on above: Performed By: #### C BCA, BMP #### [facility] ([id number]) [address] [facility], [address] [place] [address] #### PINR, [id number] #### [facility] ([id number]) [address] [place] [address] Calcium [Mass/Vol] 9.9 mg/dL Normal 8.5-10.5 [facility] Comment on above: Performed By: #### C BCA, BMP #### [facility] ([id number]) [address] [facility] [facility] [place] [address] #### PINR, [id number] #### [facility] ([id number]) [address] [place] [address] Chloride [Moles/Vol] 103 mmol/L Normal 98-109 [facility] Comment on above: Performed By: #### C BCA, BMP #### [facility] ([id number]) [address] [facility] [facility] [place] [address] #### PINR, [id number] #### [facility] ([id number]) [address] [place] [address] CO2 [Moles/Vol] 27 mmol/L Normal 22-32 [facility] Comment on above: Performed By: #### C BCA, BMP #### [facility] ([id number]) [address] [facility] [facility] [place] [address] #### PINR, [id number] #### [facility] ([id number]) [address] [place] [address] Creatinine [Mass/Vol] 1.15 mg/dL High 0.40-1.00 [facility] Comment on above: Result Comment: METH OD TRACEABLE TO IDMS STANDARD Performed By: #### C BCA, BMP #### [facility] ([id number]) [address] [facility] [facility] [place] [address] #### PINR, [id number] #### [facility] ([id number]) [address] [place] [address] GFR/1.73 sq M.predicted among non-blacks MDRD (S/P/Bld) [Vol rate/Area] 46 mL/min/{1.73_m2} Low >59 [facility] Comment on above: Result Comment: Reported eGFR is based on the CKD-EPI 2020 equation that does not use a race coefficient. Performed By: #### C BCA, BMP #### [facility] ([id number]) [address] [facility] [facility] [place] [address] #### ROSA, [id number] #### [facility] ([id number]) [address] [place] [address] Glucose [Mass/Vol] 70 mg/dL Normal 65-99 [facility] Comment on above: Performed By: #### C BCA, BMP #### [facility] ([id number]) [address] [facility] [facility], [address] [place] [address] #### ROSA, [id number] #### [facility] ([id number]) [address] [place] [address] Potassium [Moles/Vol] 4.1 mmol/L Normal 3.5-5.0 [facility] Comment on above: Performed By: #### C BCA, BMP #### [facility] ([id number]) [address] [facility] [place] [address] #### PINR, [id number] #### [facility] ([id number]) [address] [place] [address] Sodium [Moles/Vol] 141 mmol/L Normal 134-146 [facility] Comment on above: Performed By: #### C BCA, BMP #### [facility] ([id number]) [address] [facility], [address] [place] [address] #### PINR, [id number] #### [facility] ([id number]) [address] [place] [address] Urea nitrogen [Mass/Vol] 24 mg/dL Normal 5-27 [facility] Comment on above: Performed By: #### C BCA, BMP #### [facility] ([id number]) [address] [facility] [address] [place] [address] #### PINR, [id number] #### [facility] ([id number]) [address] [place] [address] CBC AND AUTO DIFFon 10-27-19 24 ABSOLUTE BASOPHIL 0.0 X10E9/L Normal 0.0-0.2 [facility] Comment on above: Performed By: #### C BCA, BMP #### [facility] ([id number]) [address] [address] #### PINR, [id number] #### [facility] ([id number]) [address] [place] [address] ABSOLUTE NEUTROPHIL 5.5 X10E9/L Normal 1.5-6.6 [facility] Comment on above: Performed By: #### C BCA, BMP #### [facility] ([id number]) [address], [address] [address] #### PINR, [id number] #### [facility] ([id number]) [address] [place] [address] Basophils/100 WBC (Bld) 0.4 % Normal [facility] Comment on above: Performed By: #### C BCA, BMP #### [facility] ([id number]) [address] [address] #### PINR, [id number] #### [facility] ([id number]) [address] [place] [address] Eosinophils (Bld) [#/Vol] 0.0 10*3/uL Normal 0.0-0.4 [facility] Comment on above: Performed By: #### C LESVIA, BMP #### [facility] ([id number]) [address] [place] [address] #### ROSA, [id number] #### [facility] ([id number]) [address] [place] [address] Eosinophils/100 WBC (Bld) 0.6 % Normal [facility] Comment on above: Performed By: #### Jeny LAKHANI, BMP #### [facility] ([id number]) [address] [place] [address] #### ROSA, [id number] #### [facility] ([id number]) [address] [place] [address] Erythrocyte distribution width (RBC) [Ratio] 14.7 % Normal 11.5-15.0 [facility] Comment on above: Performed By: #### Jeny LAKHANI, BMP #### [facility] ([id number]) [address], [address] [place] [address] #### ROSA, [id number] #### [facility] ([id number]) [address] [place] [address] Hematocrit (Bld) [Volume fraction] 35.1 % Normal 35-47 [facility] Comment on above: Performed By: #### C LESVIA, BMP #### [facility] ([id number]) [address], [address] [place] [address] #### PINDoug, [id number] #### [facility] ([id number]) [address] [place] [address] Hemoglobin (Bld) [Mass/Vol] 11.7 g/dL Normal 11.7-15.5 [facility] Comment on above: Performed By: #### C BCA, BMP #### [facility] ([id number]) [address] [place] [address] #### PINR, [id number] #### [facility] ([id number]) [address] [place] [address] Lymphocytes (Bld) [#/Vol] 1.1 10*3/uL Normal 1.0-3.5 [facility] Comment on above: Performed By: #### C BCA, BMP #### [facility] ([id number]) [address] [facility], [address] [place] [address] #### PINR, [id number] #### [facility] ([id number]) [address] [place] [address] Lymphocytes/100 WBC (Bld) 14.7 % Normal [facility] Comment on above: Performed By: #### C BCA, BMP #### [facility] ([id number]) [address] [facility], [address] [place] [address] #### PINR, [id number] #### [facility] ([id number]) [address] [place] [address] MCH (RBC) [Entitic mass] 32.5 pg Normal 27-34 [facility] Comment on above: Performed By: #### C BCA, BMP #### [facility] ([id number]) [address] [place] [address] #### PINR, [id number] #### [facility] ([id number]) [address] [place] [address] MCHC (RBC) [Mass/Vol] 33.3 g/dL Normal 32-36 [facility] Comment on above: Performed By: #### C BCA, BMP #### [facility] ([id number]) [address] [place] [address] #### PINDoug, [id number] #### [facility] ([id number]) [address] [place] [address] MCV (RBC) [Entitic vol] 98 fL Normal 80-100 [facility] Comment on above: Performed By: #### C BCA, BMP #### [facility] ([id number]) [address] [place] [address] #### PINDoug, [id number] #### [facility] ([id number]) [address] [place] [address] 03466 Monocytes (Bld) [#/Vol] 1.1 10*3/uL High 0-0.9 [facility] Comment on above: Performed By: #### C BCA, BMP #### [facility] ([id number]) [address] [place] [address] #### PINR, [id number] #### [facility] ([id number]) [address] [place] [address] [id number] Monocytes/100 WBC (Bld) 13.8 % Normal [facility] Comment on above: Performed By: #### C BCA, BMP #### [facility] ([id number]) [address], [address] [place] [address] #### PINR, [id number] #### [facility] ([id number]) [address] [place] [address]12 Neutrophils/100 WBC (Bld) 70.5 % Normal [facility] Comment on above: Performed By: #### C BCA, BMP #### [facility] ([id number]) [address] [facility], [address] [place] [address] #### PINR, [id number] #### [facility] ([id number]) [address] [place] [address] 79075 Platelet mean volume (Bld) [Entitic vol] 7.6 fL Normal 7-12 [facility] Comment on above: Performed By: #### Jeny BCA, BMP #### [facility] ([id number]) [address] [facility], [address] [place] [address] #### PINR, [id number] #### [facility] ([id number]) [address] [place] [address] 49890 Platelets (Bld) [#/Vol] 321 10*3/uL Normal 150-450 [facility] Comment on above: Performed By: #### Jeny BCA, BMP #### [facility] ([id number]) [address] [place] [address], [address] [place] [address] #### PINR, [id number] #### [facility] ([id number]) [address] [place] [address] 25321 RBC COUNT 3.59 X10E12/L Low 3.80-5.20 [facility] Comment on above: Performed By: #### C BCA, BMP #### [facility] ([id number]) [address] [place] [address], [address] [place] [address] #### PINR, [id number] #### [facility] ([id number]) [address] [place] [address]05 WBC (Bld) [#/Vol] 7.8 10*3/uL Normal 4.0-11.0 [facility] Comment on above: Performed By: #### C BCA, BMP #### [facility] ([id number]) [address] [place] [address], [address] [place] [address] #### PINR, [id number] #### [facility] ([id number]) [address] [place] [address] PROTIME AND INRon 10-27-2023 INR Coag (PPP) [Relative time] 1.1 {INR} Normal 0.8-1.1 [facility] Comment on above: Performed By: #### C BCA, BMP #### [facility] ([id number]) [address] [facility], [address] [place] [address] #### PINR, [id number] #### [facility] ([id number]) [address] [place] [address] [phone] PT Coag (PPP) [Time] 12.3 s Normal 9.8-13.2 [facility] Comment on above: Result Comment: NEW REFERENCE RANGE Performed By: #### C BCA, BMP #### [facility] ([id number]) [address] [facility], [address] [place] [address] #### PINR, [id number] #### [facility] ([id number]) [address] [place] [address]004 aPTT Coag (PPP) [Time]on aPTT Coag (Bld) [Time] 36 s Normal 26-[address] [facility] [place] [place] Comment on above: Result Comment: NEW REFERENCE RANGE Performed By: #### C BCA, BMP #### [facility] ([id number]) [address] [facility], [address] [place] [address] #### PINR, [id number] #### [facility] ([id number]) [address] [place] [address] Lab Reportson 07-27-2023 Lab Reports [id number]#1.00TI FF Normal [facility] Lab Reports [id number]#1.00TI FF Normal [facility] Blood Urea Nitrogenon 2023 Urea nitrogen [Mass/Vol] 16 mg/dL Normal 7-25 [facility] Comment on above: Order Comment: STAT FOR CT Performed By: #### B UN, CREAT #### [address] abdomen pelvis w conon CT abdomen pelvis w con [facility] [address] [place] [address] CT Scan Report Signed Patient: Delicia Hsu MR#: [id number] 4 : 1935 Acct:[id number] Age/Sex: 87 / F ADM Date: 05/28/23 Loc: CT Room: Type: [facility] Attending Dr: Monie Wallace DO Copies to: [...] appears to been removed. No adnexal mass.] Peritoneum/Retroperiton eum:No free air, free fluid or lymphadenopathy.[ Abd wall/Bones:Abdominal wall demonstrated no acute findings. Osseous structures demonstrate degenerative change.[ CT/CT abdomen pelvis w con IMPRESSION: 1. No acute findings. 2. Pneumobilia. 3. Small hiatal hernia. Impression dictated by: Jm Yen Jr., D.ORylee05/28/2023 1:34 PM Dictation Location: [place] [address] Transcribed By: [facility] 05/28/23 1334 Dictated By: Jm Yen Jr, DO 05/28/23 1331 Signed By: 05/28/23 1334 Normal [facility] Creatinineon 05-28-2023 Creatinine [Mass/Vol] 1.07 mg/dL Normal 0.60-1.20 [facility] Comment on above: Order Comment: STAT FOR CT Performed By: #### B UN, CREAT #### [facility] [address] [place] [address] [place] GFR/1.73 sq M.predicted MDRD (S/P/Bld) [Vol rate/Area] 50.587 mL/min/{1.73_m2} Normal [facility] Comment on above: Order Comment: STAT FOR CT Result Comment: PERF ORMED BY: [place] [address] PATHOLOGIST MECHANICAL METER TESTER TIEN VELASQUEZ M.D. Performed By: #### B UN, CREAT #### [facility] [address] Creatinine [Mass/volume] in Serum or PlasmaOrdered By: Monie Wallace on 05-28-2023 Creatinine [Mass/Vol] 1.07 mg/dL 0.60-1.[address] [facility] No Panel InformationOrdered By: Monie Wallace on 05-28-2023 Estimated GFR (CKD-EPI) 50.587 mL/Min [facility] Creatinine Clearance (Chem N/A [facility] Urea nitrogen [Mass/volume] in Serum or PlasmaOrdered By: Monie Walalce on 05-28-2023 Urea nitrogen [Mass/Vol] 16 mg/dL 09-01 [facility] No Panel InformationOrdered By: Gypsy Mcmahon on 05-25-2023 E coli Shiga Toxin EIA Fi [facility] Salmonella/Shigella Screen [facility] IgA [Mass/volume] in Serum o r Plasmaon 05-24-2023 IgA [Mass/Vol] 64 mg/dL 64-422 [facility] Comment on above: Performed at: [address] [id number] Director: Salomon Mcarthur PhD, Phone: [phone] No Panel Informationon 05-23 Endomysial IgA Antibody Negative Negative [facility] Serum gliadin peptide IgA an tibody assay (units/volume)on 05-24-2023 Gliadin peptide IgA Qn (S) 4 units 0-19 [facility] Comment on above: Negative 0 - 19 Weak Positive 20 - 30 Moderate to Strong Positive >30 Serum gliadin peptide IgG an tibody assay (units/volume)on 05-24-2023 Gliadin peptide IgG Qn (S) 2 units 0-19 [facility] Comment on above: Negative 0 - 19 Weak Positive 20 - 30 Moderate to Strong Positive >30 Serum tissue transglutaminas e (tTG) IgA antibody assay (units/volume)on 05-24-2023 tTG IgA Qn (S) <2 U/mL 0-3 [facility] Comment on above: Negative 0 - 3 Weak Positive 4 - 10 Positive >10 Tissue Transglutaminase (tTG) has been identified as the endomysial antigen. Studies have demonstr- ated that endomysial IgA antibodies have over 99% specificity for gluten sensitive enteropathy. Serum tissue transglutaminas e (tTG) IgG antibody assay (units/volume)on 05-24-2023 tTG IgG Qn (S) <2 U/mL 0-5 [facility] Comment on above: Negative 0 - 5 Weak Positive 6 - 9 Positive >9 Lab Reportson 05-10-2023 Lab Reports [id number]#1.00T IFF Normal [facility] Lab Reports [id number]#1.00T IFF Normal [facility] Lab Reports [id number]#1.00T IFF Normal [facility] Automated urine specific gra vity by refractometryon 05-06-2023 Specific gravity Refractometry automated (U) [Rel density] 1.025 1.005-1.02 5 [facility] Bilirubin Auto test strip (U ) [Mass/Vol]on 05-06-2023 Bilirubin (U) [Mass/Vol] Negative NEGATIVE [facility] Color Auto (U)on 05-06-2023 Color (U) YELLOW YELLOW [facility] Ketones Auto test strip (U) [Mass/Vol]on 05-06-2023 Ketones (U) [Mass/Vol] Negative NEGATIVE [facility] Lab Reportson 05-06-2023 Lab Reports [id number]#1.00T IFF Normal [facility] Laboratory - Microbiology an d Antimicrobial susceptibilityOrdered By: Gypsy Mcmahon on 05-06-2023 Bacteria identified Cx Nom (U) [facility] Protein Auto test strip (U) [Mass/Vol]on 05-06-2023 Protein (U) [Mass/Vol] Negative NEG/TRACE [facility] Specific gravity Auto test s trip (U) [Rel density]on 05-06-2023 Specific gravity (U) [Rel density] CLEAR CLEAR [facility] Urine glucose measurement by test strip (mass/volume)on 05-06-2023 Glucose Test strip (U) [Mass/Vol] Negative NEGATIVE [facility] Urine hemoglobin detection b y automated test stripon 05-06-2023 Hemoglobin Auto test strip Ql (U) TRACE-I NEGATIVE [facility] Urine nitrite detection by a utomated test stripon 05-06-2023 Nitrite Auto test strip Ql (U) SMALL NEGATIVE [facility] Nitrite Auto test strip Ql (U) Positive NEGATIVE [facility] Urobilinogen Auto test strip (U) [Mass/Vol]on 05-06-2023 Urobilinogen Qn (U) 0.2 {Gen'U}/dL 0.2-1.0 [facility] pH Auto test strip (U)on pH (U) 5.5 [pH] 5.0-9.0 [facility] No Panel Informationon 04-30 Clostridium difficile (PCR)(LAB) Negative NEGATIVE [facility] No Panel Informationon 04-06 Clostridium difficile (PCR)(LAB) Positive Negative [facility] Comment on above: Toxigenic C difficil e: PositiveEpidemic Strain Bl/NAP1/027: Presumptive NegativePerformed at: [address] [id number] Director: Salomon Mcarthur PhD, Phone: [phone] IntraOperative Documentson 0 02-12-2023 IntraOperative Documents [id number]#1.00T IFF Normal [facility] Physician Orderon 02-12-2023 Physician Order [id number]#1.00T IFF Normal [facility] Physician Order [id number]#1.00T IFF Normal [facility] ED Note-Physicianon 02-05-20 ED Note-Physician [id number]#1.00 TIFF Normal [facility] Lab Reportson 02-04-2023 Lab Reports [id number]#1.00T IFF Normal [facility] Lab Reports [id number]#1.00T IFF Normal [facility] Lab Reports [id number]#1.00T IFF Normal [facility] Consent for Treatmenton 01-09 Consent for Treatment [id number]#1.00T IFF Normal [facility] Retail - Clinical Noteon Retail - Clinical Note [id number]#1.00T IFF Normal [facility] Lab Reportson 01-28-2023 Lab Reports [id number]#1.00T IFF Normal [facility] Physician Orderon 01-28-2023 Physician Order [id number]#1.00T IFF Normal [facility] Urology Office/Clinic Noteon 01-27-2023 Urology Office/Clinic [...] Urnls Dip Stick Auto w/o Microscopy POC 33223 2. 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 Case discussed w GI, Dr Brown's 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 Katie. he agrees w above plan. 3. [...] the risks of side effects etc. Orders: 13126 Measure Post Void residual urine and/or bladder capacity by US- non-imaging Total time spent reviewing previous notes/results/external documents, preparing the chart, conducting the encounter with the patient and family, ordering tests/medications, and documenting the encounter was 40 minutes. Follow-up With When Contact Information MALATHI VIEIRA PA-C, URL [address] [facility] [place] [address] [phone] Additional Instructions: f/u in Spring Patient Education Urinary Tract Infection, Adult, [id number] Documentation recorded by the scribe Caprice Stratton accurately reflects the services(s) I performed and decisions made by me. Authenticated by Malathi Vieira PA-C on 01/27/2023 13:56:47. I, Caprice Stratton, personally scribed for Malathi Vieira PA-C on (more content not included)... Normal [facility] Comment on above: Result Comment: Elec [...] Urnls Dip Stick Auto w/o Microscopy POC 86758 Your Care Team Attending Physician - MALATHI VIEIRA PA-C Primary Care Physician - GYPSY MCMAHON MD This Is Your Medications List Contact prescribing physician if questions or concerns alosetron (alosetron 0.5 mg oral tablet) bifidobacterium-lactoba cillus (Nature's Bounty Probiotic) bismuth subsalicylate (Pepto-Bismol) budesonide [...] MALATHI VIEIRA PA-C Where: [facility] Patient Educationon 01-27-20 Patient Education Obstetrics and Gynecology Urinary Tract Infection, Adult A urinary tract [...] these instructions at home: Medicines ? Take cbcd-wne-jlsijnx and prescription medicines only as told by [...] provider. Document Revised: 09/06/2020 Document Reviewed: 09/06/2020 [employer] Patient Education ? 2022 [employer] [facility] Lab Reportson 01-25-2023 Lab Reports [id number]#1.00T IFF [facility] Lab Reports [id number]#1.00T IFF [facility] Lab Reports [id number]#1.00T IFF [facility] Lab Reportson 12-03-2022 Lab Reports [id number]#1.00TI FF [facility] Physician Orderon 12-01-2022 Physician Order [id number]#1.00T IFF [facility] Lab Reportson 09-25-2022 Lab Reports [id number]#1.00C D:127 Normal [facility] Lab Reports [id number]#1.00C D:127 Normal [facility] Physician Orderon 09-23-2022 Physician Order [id number]#1.00C D:127 Normal [facility] Screenson 09-23-2022 Screens [id number]#1.00C D:127 Normal [facility] Ambulatory Visit Summaryon 0 09-22-2022 Ambulatory [...] VIEIRA PA-C Where: [facility] Tatyana Normal [facility] Patient Educationon 09-23-19 Patient Education Obstetrics and Gynecology Urinary Tract Infection, Adult A urinary tract [...] these instructions at home: Medicines ? Take wivs-qgw-iddoddw and prescription medicines only as told by [...] Reviewed: 09/06/2020 [employer] Patient Education ? 2022 [employer] [facility] Urology Office/Clinic Noteon 09-22-2022 Urology [...] symptoms not resolved. C&S this morning at [facility] ( not finalized) UTI symptoms [...] resolved per daughter. C&S this morning at [facility] (not finalized) - will call [...] having to send a U.Cx to [facility] so we can review the results. [...] When Contact Information MALATHI VIEIRA PA-C, URL [address] [place] [address] Additional Instructions: Patient Education Urinary Tract Infection, Adult, Fzha-ij-Gcxf Jazlyn Aviles, personally scribed for Malathi Vieira PA-C on 09/22/2022 15:36:00. . Documentation recorded by the rafaelrobson Lucero accurately reflects the services(s) I performed [...] 3 mg (more content not included)... Normal [facility] Comment on above: Result Comment: Elec [...] MI NUÑEZ Date: 2022-05-27 10:34 Normal [facility] CULTURE URINEon 05-14-2022 CULTURE URINE [...] 0.5 S F Nitrofurantoin 64 I F Trimethoprim/Sulfametho xazole <=20 S F Normal [facility] Comment on above: Performed By: #### U RCX #### [facility] [address] [place] [address] Dr. Anthony Bonilla UA RANDOMon 05-11-2022 Bilirubin Ql (U) Negative Normal NEGATIVE [facility] Comment on above: Performed By: #### U RCX #### [facility] [address] [place] [address] Dr. Anthony Bonilla Clarity (U) SL CLOUDY Abnormal CLEAR [facility] Comment on above: Performed By: #### U RCX #### [facility] [address] [place] [address] Dr. Anthony Bonilla Color (U) LT. YELLOW Normal YELLOW [facility] Comment on above: Performed By: #### U RCX #### [facility] [address] [place] [address] Dr. Anthony Bonilla Glucose Ql (U) Negative Normal NEGATIVE [facility] Comment on above: Performed By: #### U RCX #### [facility] [address] [place] [address] [address] Anthony Bonilla Hemoglobin Ql (U) Negative Normal NEGATIVE [facility] Comment on above: Performed By: #### U RCX #### [facility] [address] [place] [address] Dr. Anthony Bonilla Ketones Ql (U) Negative Normal NEGATIVE [facility] Comment on above: Performed By: #### U RCX #### [facility] [address] [place] [address] [address] Anthony Bonilla LEUKOCYTES MODERATE Abnormal NEGATIVE [facility] Comment on above: Performed By: #### U RCX #### [facility] [address] [place] [address] Dr. Anthony Bonilla Nitrite Ql (U) Negative Normal NEGATIVE [facility] Comment on above: Performed By: #### U RCX #### [facility] [address] [place] [address] [address] Anthony Bonilla pH (U) 5.5 [pH] Normal 5-9 [facility] Comment on above: Performed By: #### U RCX #### [facility] [address] [place] [address] Dr. Anthony Bonilla SPEC GRAVITY 1.020 Normal 1.005-<=1. 025 [facility] Comment on above: Performed By: #### U RCX #### [facility] [address] [place] [address] [address] Anthony Bonilla UA PROTEIN Negative Normal NEGATIVE/ TRACE [facility] Comment on above: Performed By: #### U RCX #### [facility] [address] [place] [address] [address] Anthony Bonilla Urobilinogen Qn (U) 0.2 {Gen'U}/dL Normal 0.2 - 1. 0 [facility] Comment on above: Performed By: #### U RCX #### [facility] [address] [place] [address] Dr. Anthony Bonilal CULTURE URINEon 05-01-2022 CULTURE URINE Isolate 1 [...] <=0.12 S F Nitrofurantoin 32 S F Trimethoprim/Sulfametho xazole <=20 S F ORGANISM 2 Enterobacter aerogenes ANTIBIOTIC M.I.C RX STATUS Piperacillin/Tazobactam <=4 S F Cefazolin <=4 R F Ceftazidime <=1 S F Ceftriaxone <=1 S F Ertapenem <=0.5 S F Imipenem <=0.25 S F Amikacin <=2 S F Gentamicin <=1 S F Tobramycin <=1 S F Ciprofloxacin <=0.25 S F Levofloxacin <=0.12 S F Nitrofurantoin 64 I F Trimethoprim/Sulfametho xazole <=20 S F Normal [facility] Comment on above: Performed By: #### U RCX #### [facility] [address] [place] [address] Dr. Anthony Bonilla CULTURE URINEon 04-16-2022 CULTURE URINE Isolate 1 Enterococcus faecium 20,000 cfu/mL of ORGANISM 1 Enterococcus faecium ANTIBIOTIC M.I.C RX STATUS Beta-Lactamase Neg NEG F Benzylpenicillin <=0.12 S F Ampicillin <=2 S F Gentamicin High Level (synergy) SYN-S S F Streptomycin High Level (synergy) SYN-S S F Ciprofloxacin 1 S F Levofloxacin 2 S F Quinupristin/Dalfoprist in 1 S F Linezolid 2 S F Vancomycin <=0.5 S F Tetracycline >=16 R F Nitrofurantoin 64 I F Normal [facility] Comment on above: Performed By: #### U RCX #### [facility] [address] [place] [address] Dr. Anthony Bonilla UA RANDOMon 04-14-2022 Bilirubin Ql (U) Negative Normal NEGATIVE [facility] Comment on above: Performed By: #### U RCX #### [facility] [address] [place] [address] Dr. Anthony Bonilla Clarity (U) CLEAR Normal CLEAR [facility] Comment on above: Performed By: #### U RCX #### [facility] [address] [place] [address] Dr. Anthony Bonilla Color (U) LT. YELLOW Normal YELLOW [facility] Comment on above: Performed By: #### U RCX #### [facility] [address] [place] [address] Dr. Anthony Bonilla Glucose Ql (U) Negative Normal NEGATIVE [facility] Comment on above: Performed By: #### U RCX #### [facility] [address] [place] [address] Dr. Anthony Bonilla Hemoglobin Ql (U) Negative Normal NEGATIVE [facility] Comment on above: Performed By: #### U RCX #### [facility] [address] [place] [address] Dr. Anthony Bonilla Ketones Ql (U) Negative Normal NEGATIVE [facility] Comment on above: Performed By: #### U RCX #### [facility] [address] [place] [address] Dr. Anthony Bonilla LEUKOCYTES MODERATE Abnormal NEGATIVE [facility] Comment on above: Performed By: #### U RCX #### [facility] [address] [place] [address] Dr. Anthony Bonilla Nitrite Ql (U) Negative Normal NEGATIVE [facility] Comment on above: Performed By: #### U RCX #### [facility] [address] [place] [address] Dr. Anthony Bonilla pH (U) 5.5 [pH] Normal 5-9 [facility] Comment on above: Performed By: #### U RCX #### [facility] [address] [place] [address] Dr. Anthony Bonilla SPEC GRAVITY 1.020 Normal 1.005-<=1. 025 [facility] Comment on above: Performed By: #### U RCX #### [facility] [address] [place] [address] Dr. Anthony Bonilla UA PROTEIN Negative Normal NEGATIVE/ TRACE [facility] Comment on above: Performed By: #### U RCX #### [facility] [address] [place] [address] [address] Anthony Bonilla Urobilinogen Qn (U) 0.2 {Gen'U}/dL Normal 0.2 - 1. 0 [facility] Comment on above: Performed By: #### U RCX #### [facility] [address] [place] [address] Dr. Anthony Bonilla Urinalysis - DIPSTICKon 03-12 Appearance (U) clear [employer] Other Bilirubin Ql (U) [employer] Other Color (U) dark yellow [employer] Other Glucose Ql (U) Negative [employer] Other Hemoglobin Ql (U) Negative [employer] Other Ketones Ql (U) trace [employer] Other Leukocyte esterase Test strip Ql (U) [employer] Other Nitrite Ql (U) Negative [employer] Other pH (U) 5.0 [pH] [employer] Other Protein Ql (U) Negative [employer] Other Specific gravity (U) [Rel density] 1.015 [employer] Other Urobilinogen (U) [Mass/Vol] 0.2 mg/dL [employer] Other Urinalysis - DIPSTICK [employer] Other Urine Cultureon 03-30-2022 Urine Culture 10,[address] [facility] [employer] Other Bacteria identified Cx Nom (U) [employer] Other CULTURE URINEon 03-23-2022 CULTURE URINE Isolate 1 Pseudomonas aeruginosa >100,000 cfu/mL of ORGANISM 1 Pseudomonas aeruginosa ANTIBIOTIC M.I.C RX STATUS Piperacillin/Tazobactam 8 S F Ceftazidime 4 S F Imipenem 1 S F Amikacin <=2 S F Gentamicin <=1 S F Tobramycin <=1 S F Ciprofloxacin <=0.25 S F Levofloxacin 0.5 S F Normal [facility] Comment on above: Performed By: #### U RCX #### [facility] [address] [place] [address] Dr. Anthony Bonilla CARDIAC DARWIN ADMITon 023 CK [Catalytic activity/Vol] 137 U/L Normal 26-192 [facility] Comment on above: Performed By: #### U RCX #### [facility] [address] [place] [address] Dr. Anthony Bonilla CK.MB [Mass/Vol] 1.05 ng/mL Normal <=3.60 [facility] Comment on above: Performed By: #### U RCX #### [facility] [address] [place] [address] Dr. Anthony Bonilla HSTROP 17.6 pg/mL Normal 4.0-51.3 [facility] Comment on above: Result Comment: CUT- OFF POINTS HAVE BEEN ESTABLISHED BASED ON THE FOURTH UNIVERSAL DEFINITIONS OF MYOCARDIAL INFARCTION. THE UPPER REFERENCE LIMIT (URL) OF TROPONIN, DEFINED THE 99TH PERCENTILE OF cTnI DISTRIBUTION IN A REFERENCE POPULATION, HAS BEEN CONFIRMED THE DECISION THRESHOLD FOR NE DIAGNOSIS. Performed By: #### U RCX #### [facility] [address] [place] [address] Dr. Anthony Bonilla CANDIDA 72 ng/mL Normal 9-82 [facility] Comment on above: Performed By: #### U RCX #### [facility] [address] [place] [address] Dr. Anthony Bonilla CBC AUTO DIFFon 03-20-2022 BASO # 0.0 103/ul Normal 0.0-0.1 [facility] Comment on above: Performed By: #### C BC #### [facility] [address] [place] [address] Dr. Anthony Bonilla Basophils/100 WBC (Bld) 0.3 % Normal 0.2-2.0 [facility] Comment on above: Performed By: #### C BC #### [facility] [address] [place] [address] Dr. Anthony Bonilla EO # 0.0 103/ul Normal 0.0-0.7 [facility] Comment on above: Performed By: #### C BC #### [facility] [address] [place] [address] Dr. Anthony Bonilla Eosinophils/100 WBC (Bld) 0.1 % Critically low 0.9-7.0 [facility] Comment on above: Performed By: #### C BC #### [facility] [address] [place] [address] Dr. Anthony Bonilla Erythrocyte distribution width (RBC) [Ratio] 15.9 % Critically high 11.0-15.0 [facility] Comment on above: Performed By: #### C BC #### [facility] [address] [place] [address] Dr. Anthony Bonilla Hematocrit (Bld) [Volume fraction] 33.6 % Critically low 36.0-48.0 [facility] Comment on above: Performed By: #### C BC #### [facility] [address] [place] [address] Dr. Anthony Bonilla Hemoglobin (Bld) [Mass/Vol] 11.2 g/dL Critically low 12.0-16.0 [facility] Comment on above: Performed By: #### C BC #### [facility] [address] [place] [address] Dr. Anthony Bonilla IG # 0.04 10e3/ul Critically high 0.00-0.03 [facility] Comment on above: Performed By: #### C BC #### [facility] [address] [place] [address] Dr. Anthony Bonilla IG % 0.3 % Normal 0.0-0.5 [facility] Comment on above: Performed By: #### C BC #### [facility] [address] [place] [address] Dr. Anthony Bonilla LYMPH # 0.8 103/ul Critically low 1.2-3.8 [facility] Comment on above: Performed By: #### C BC #### [facility] [address] [place] [address] Dr. Anthony Bonilla Lymphocytes/100 WBC (Bld) 6.4 % Critically low 20.5-60.0 [facility] Comment on above: Performed By: #### C BC #### [facility] [address] [place] [address] Dr. Anthony Bonilla MANUAL DIFF REQ NO Normal [facility] Comment on above: Performed By: #### C BC #### [facility] [address] [place] [address] Dr. Anthony Bonilla MCH (RBC) [Entitic mass] 28.9 pg Normal 26.7-34.0 [facility] Comment on above: Performed By: #### C BC #### [facility] [address] [place] [address] Dr. Anthony Bonilla MCHC (RBC) [Mass/Vol] 33.3 g/dL Normal 29.9-35.2 [facility] Comment on above: Performed By: #### C BC #### [facility] [address] [place] [address] Dr. Anthony Bonilla MCV (RBC) [Entitic vol] 86.8 fL Normal 81.0-99.0 [facility] Comment on above: Performed By: #### C BC #### [facility] [address] [place] [address] Dr. Anthony Bonilla MONO # 1.1 103/ul Critically high 0.3-0.8 [facility] Comment on above: Performed By: #### C BC #### [facility] [address] [place] [address] Dr. Anthony Bonilla Monocytes/100 WBC (Bld) 8.3 % Normal 1.7-12.0 [facility] Comment on above: Performed By: #### C BC #### [facility] [address] [place] [address] Dr. Anthony Bonilla NEUT # 11.2 103/ul Critically high 1.4-6.5 [facility] Comment on above: Performed By: #### C BC #### [facility] [address] [place] [address] Dr. Anthony Bonilla Neutrophils/100 WBC (Bld) 84.6 % Critically high 43.0-75.0 [facility] Comment on above: Performed By: #### C BC #### [facility] [address] [place] [address] Dr. Anthony Bonilla Platelet mean volume (Bld) [Entitic vol] 9.7 fL Normal 9.5-13.5 [facility] Comment on above: Performed By: #### C BC #### [facility] [address] [place] [address] Dr. Anthony Bonilla PLT 274 103/ul Normal 150-450 [facility] Comment on above: Performed By: #### C BC #### [facility] [address] [place] [address] Dr. Anthony Bonilla RBC 3.87 106/ul Critically low 4.20-5.40 [facility] Comment on above: Performed By: #### C BC #### [facility] [address] [place] [address] Dr. Anthony Bonilla WBC 13.2 103/ul Critically high 4.0-11.0 [facility] Comment on above: Performed By: #### C BC #### [facility] [address] [place] [address] HEAD WO CONon [...] CLAU SHAH Date: 2022-03-20 20:30 Normal [facility] ER URINE PROFILEon 3 Bilirubin Ql (U) Negative Normal NEGATIVE [facility] Comment on above: Performed By: #### C BC #### [facility] [address] [place] [address] Dr. Anthony Bonilla Clarity (U) CLEAR Normal CLEAR [facility] Comment on above: Performed By: #### C BC #### [facility] [address] [place] [address] Dr. Anthony Bonilla Color (U) LT. YELLOW Normal YELLOW [facility] Comment on above: Performed By: #### C BC #### [facility] [address] [place] [address] Dr. Anthony Bonilla ERUAHD A micrscopic examination will be performed if indicated. Normal [facility] Comment on above: Performed By: #### C BC #### [facility] [address] [place] [address] Dr. Anthony Bonilla Glucose Ql (U) Negative Normal NEGATIVE [facility] Comment on above: Performed By: #### C BC #### [facility] [address] [place] [address] Dr. Anthony Bonilla Hemoglobin Ql (U) LARGE Abnormal NEGATIVE [facility] Comment on above: Performed By: #### C BC #### [facility] [address] [place] [address] Dr. Anthony Bonilla Ketones Ql (U) Negative Normal NEGATIVE [facility] Comment on above: Performed By: #### C BC #### [facility] [address] [place] [address] Dr. Anthony Bonilla LEUKOCYTES SMALL Abnormal NEGATIVE [facility] Comment on above: Performed By: #### C BC #### [facility] [address] [place] [address] Dr. Anthony Bonilla Nitrite Ql (U) Positive Abnormal NEGATIVE [facility] Comment on above: Performed By: #### C BC #### [facility] [address] [place] [address] Dr. Anthony Bonilla pH (U) 7.0 [pH] Normal 5-9 [facility] Comment on above: Performed By: #### C BC #### [facility] [address] [place] [address] Dr. Anthony Bonilla Protein (U) [Mass/Vol] 30 mg/dL Abnormal NEGAT JAMAR/ TRACE [facility] Comment on above: Performed By: #### C BC #### [facility] [address] [place] [address] Dr. Anthony Bonilla SPEC GRAVITY 1.015 Normal 1.005-<=1. 025 [facility] Comment on above: Performed By: #### C BC #### [facility] [address] [place] [address] Dr. Anthony Bonilla UR MICRO IND INDICATED Normal [facility] Comment on above: Performed By: #### C BC #### [facility] [address] [place] [address] Dr. Anthony Bonilla Urobilinogen Qn (U) 1.0 {Gen'U}/dL Normal 0.2 - 1. 0 [facility] Comment on above: Performed By: #### C BC #### [facility] [address] [place] [address] Dr. Anthony Bonilla PROF 14(COMP METB)on 023 Albumin [Mass/Vol] 3.4 g/dL Normal 3.4-5.0 [facility] Comment on above: Performed By: #### U RCX #### [facility] [address] [place] [address] Dr. Anthony Bonilla Albumin/Globulin [Mass ratio] 1.2 {ratio} Normal [facility] Comment on above: Performed By: #### U RCX #### [facility] [address] [place] [address] Dr. Anthony Bonilla ALP [Catalytic activity/Vol] 26 U/L Critically low 46-116 [facility] Comment on above: Performed By: #### U RCX #### [facility] [address] [place] [address] Dr. Anthony Bonilla ALT [Catalytic activity/Vol] 21 U/L Normal 14-59 [facility] Comment on above: Performed By: #### U RCX #### [facility] [address] [place] [address] Dr. Anthony Bonilla Anion gap [Moles/Vol] 13.7 mmol/L Normal [facility] Comment on above: Performed By: #### U RCX #### [facility] [address] [place] [address] Dr. Anthony Bonilla AST [Catalytic activity/Vol] 20 U/L Normal 15-37 [facility] Comment on above: Performed By: #### U RCX #### [facility] [address] [place] [address] Dr. Anthony Bonilla Bilirubin [Mass/Vol] 1.2 mg/dL Critically high 0.2-1.0 [facility] Comment on above: Performed By: #### U RCX #### [facility] [address] [place] [address] Dr. Anthony Bonilla Calcium [Mass/Vol] 9.4 mg/dL Normal 8.5-10.1 [facility] Comment on above: Performed By: #### U RCX #### [facility] [address] [address] [address] Anthony Bonilla Chloride [Moles/Vol] 99 mmol/L Normal 98-107 [facility] Comment on above: Performed By: #### U RCX #### [facility] [address] [address] [address] Anthony Bonilla CO2 [Moles/Vol] 29.1 mmol/L Normal 21.0-32.0 [facility] Comment on above: Performed By: #### U RCX #### [facility] [address] [address] [address] Anthony Bonilla Creatinine [Mass/Vol] 1.02 mg/dL Normal 0.55-1.02 [facility] Comment on above: Performed By: #### U RCX #### [facility] [address] [address] [address] Anthony Bonilla EGFR-AF GRENADIAN >60 Normal >=60 [facility] Comment on above: Performed By: #### U RCX #### [facility] [address] [address] [address] Anthony Bonilla EGFR-NON AF GRENADIAN 52 mL/min/1.73m2 Critically low >=60 [facility] Comment on above: Performed By: #### U RCX #### [facility] [address] [address] [address] Anthony Bonilla Globulin (S) [Mass/Vol] 2.9 g/dL Normal [facility] Comment on above: Performed By: #### U RCX #### [facility] [address] [address] [address] Anthony Bonilla Glucose [Mass/Vol] 98 mg/dL Normal 74-106 [facility] Comment on above: Performed By: #### U RCX #### [facility] [address] [address] [address] Anthony Bonilla Potassium [Moles/Vol] 3.8 mmol/L Normal 3.5-5.1 [facility] Comment on above: Performed By: #### U RCX #### [facility] [address] [address] [address] Anthony Bonilla Protein [Mass/Vol] 6.3 g/dL Critically low 6.4-8.2 [facility] Comment on above: Performed By: #### U RCX #### [facility] [address] [address] [address] Anthony Bonilla Sodium [Moles/Vol] 138 mmol/L Normal 136-145 [facility] Comment on above: Performed By: #### U RCX #### [facility] [address] [place] [address] Dr. Anthony Bonilla Urea nitrogen [Mass/Vol] 16.0 mg/dL Normal 7.0-18.0 [facility] Comment on above: Performed By: #### U RCX #### [facility] [address] [place] [address] Dr. Anthony Bonilla Urea nitrogen/Creatinine [Mass ratio] 15.7 mg/mg Normal [facility] Comment on above: Performed By: #### U RCX #### [facility] [address] [place] [address] Dr. Anthony Bonilla URINE MICROSCOPIC ONLYon BACTERIA LARGE Abnormal NONE SEEN [facility] Comment on above: Performed By: #### C BC #### [facility] [address] [place] [address] Dr. Anthony Bonilla Bacteria identified Cx Nom (U) INDICATED Normal [facility] Comment on above: Performed By: #### C BC #### [facility] [address] [place] [address] Dr. Anthony Bonilla CAST NONE SEEN Normal NONE SEEN [facility] Comment on above: Performed By: #### C BC #### [facility] [address] [place], [place] [id number] Dr. Anthony Bonilla Crystals LM Nom (Urine sed) NONE SEEN Normal NONE SEEN [facility] Comment on above: Performed By: #### C BC #### [facility] [address] [place] [address] Dr. Anthony Bonilla Epithelial cells LM Ql (Urine sed) FEW Abnormal NONE SEEN /RARE [facility] Comment on above: Performed By: #### C BC #### [facility] [address] [place] [address] Dr. Anthony Bonilla MUCOUS NONE SEEN Normal NONE SEEN [facility] Comment on above: Performed By: #### C BC #### [facility] [address] [place] [address] Dr. Anthony Bonilla RBC 10-20 Abnormal 0-2 [facility] Comment on above: Performed By: #### C BC #### [facility] [address] [place] [address] Dr. Anthony Bonilla WBC 50-75 Abnormal NONE SEEN [facility] Comment on above: Performed By: #### C BC #### [facility] [address] [place] [address] Dr. Anthony Bonilla CALPROTECTIN, FECALon 2022 Calprotectin, Fecal 416 ug/g Critically high 0-120 [facility] Comment on above: Result Comment: Conc entration Interpretation Follow-Up <16 - 50 ug/g Normal None >50 -120 ug/g Borderline Re-evaluate in 4-6 weeks >120 ug/g Abnormal Repeat as clinically indicated Performed By: #### U RCX #### [facility] [address] [place] [address] Dr. Anthony Bonilla QUANTIFERON TB GOLD PLUSon 0 02-19-2022 QuantiFERON Criteria Comment Normal [facility] Comment on above: Result Comment: Butch tiFERON-TB [...] test. Performed By: #### U RCX #### [facility] [address] [place] [address] Dr. Anthony Bonilla QuantiFERON Incubation Incubation performed. Normal [facility] Comment on above: Performed By: #### U RCX #### [facility] [address] [place] [address] Dr. Anthony Bonilla QuantiFERON Mitogen Value >10.00 Normal [facility] Comment on above: Performed By: #### U RCX #### [facility] [address] [place] [address] Dr. Anthony Bonilla QuantiFERON Nil Value 0.07 IU/mL Normal [facility] Comment on above: Performed By: #### U RCX #### [facility] [address] [place] [address] Dr. Anthony Bonilla QuantiFERON TB1 Ag Value 0.08 IU/mL Normal [facility] Comment on above: Performed By: #### U RCX #### [facility] [address] [place] [address] Dr. Anthony Bonilla QuantiFERON TB2 Ag Value 0.07 IU/mL Normal [facility] Comment on above: Performed By: #### U RCX #### [facility] [address] [place] [address] Dr. Anthony Bonilla QuantiFERON-TB Gold Plus Negative Normal Negative [facility] Comment on above: Result Comment: No r esponse to M tuberculosis antigens detected. Infection with M tuberculosis is unlikely, but high risk individuals should be considered for additional testing (ATS/IDSA/CDC Clinical Practice Guidelines, 2017). The reference range is an Antigen minus Nil result of <0.35 IU/mL. Chemiluminescence immunoassay methodology Performed By: #### U RCX #### [facility] [address] [place] [address] Dr. Anthony Bonilla HEP B SURFACE ANTIGEN SCREEN on 02-18-2022 HBsAg Screen Negative Normal Negative [facility] Comment on above: Performed By: #### U RCX #### [facility] [address] [place] [address] Dr. Anthony Bonilla HEPATITIS B CORE, IgMon 02-08 Hep B Core Ab, IgM Negative Normal Negative [facility] Comment on above: Performed By: #### U RCX #### [facility] [address] [place] [address] Dr. Anthony Bonilla HEPATITIS B SURFACE ANTIBODY , QUANTon 02-18-2022 Hepatitis B Surf AB Quant <3.1 Critically low Immunity>9 .9 [facility] Comment on above: Result Comment: Stat us of Immunity Anti-HBs Level Inconsistent with Immunity 0.0 - 9.9 Consistent with Immunity >9.9 Performed By: #### C BC #### [facility] [address] [place] [address] Dr. Anthony Bonilla CBC AUTO DIFFon 02-17-2022 BASO # 0.0 103/ul Normal 0.0-0.1 [facility] Comment on above: Performed By: #### U RCX #### [facility] [address] [place] [address] Dr. Anthony Bonilla Basophils/100 WBC (Bld) 0.4 % Normal 0.2-2.0 [facility] Comment on above: Performed By: #### U RCX #### [facility] [address] [place] [address] Dr. Anthony Bonilla EO # 0.0 103/ul Normal 0.0-0.7 [facility] Comment on above: Performed By: #### U RCX #### [facility] [address] [place] [address] Dr. Anthony Bnoilla Eosinophils/100 WBC (Bld) 0.5 % Critically low 0.9-7.0 [facility] Comment on above: Performed By: #### U RCX #### [facility] [address] [place] [address] Dr. Anthony Bonilla Erythrocyte distribution width (RBC) [Ratio] 14.7 % Normal 11.0-15.0 [facility] Comment on above: Performed By: #### U RCX #### [facility] [address] [place] [address] Dr. Anthony Bonilla Hematocrit (Bld) [Volume fraction] 33.2 % Critically low 36.0-48.0 [facility] Comment on above: Performed By: #### U RCX #### [facility] [address] [place] [address] Dr. Anthony Bonilla Hemoglobin (Bld) [Mass/Vol] 11.0 g/dL Critically low 12.0-16.0 [facility] Comment on above: Performed By: #### U RCX #### [facility] [address] [place] [address] Dr. Anthony Bonilla IG # 0.02 10e3/ul Normal 0.00-0.03 [facility] Comment on above: Performed By: #### U RCX #### [facility] [address] [place] [address] Dr. Anthony Bonilla IG % 0.2 % Normal 0.0-0.5 [facility] Comment on above: Performed By: #### U RCX #### [facility] [address] [place] [address] Dr. Anthony Bonilla LYMPH # 1.3 103/ul Normal 1.2-3.8 [facility] Comment on above: Performed By: #### U RCX #### [facility] [address] [place] [address] Dr. Anthony Bonilla Lymphocytes/100 WBC (Bld) 14.8 % Critically low 20.5-60.0 [facility] Comment on above: Performed By: #### U RCX #### [facility] [address] [place] [address] Dr. Anthony Bonilla MANUAL DIFF REQ NO Normal [facility] Comment on above: Performed By: #### U RCX #### [facility] [address] [place] [address] Dr. Anthony Bonilla MCH (RBC) [Entitic mass] 29.0 pg Normal 26.7-34.0 [facility] Comment on above: Performed By: #### U RCX #### [facility] [address] [place] [address] Dr. Anthony Bonilla MCHC (RBC) [Mass/Vol] 33.1 g/dL Normal 29.9-35.2 [facility] Comment on above: Performed By: #### U RCX #### [facility] [address] [place] [address] Dr. Anthony Bonilla MCV (RBC) [Entitic vol] 87.6 fL Normal 81.0-99.0 [facility] Comment on above: Performed By: #### U RCX #### [facility] [address] [place] [address] Dr. Anthony Bonilla MONO # 0.8 103/ul Normal 0.3-0.8 [facility] Comment on above: Performed By: #### U RCX #### [facility] [address] [place] [address] Dr. Anthony Bonilla Monocytes/100 WBC (Bld) 9.6 % Normal 1.7-12.0 [facility] Comment on above: Performed By: #### U RCX #### [facility] [address] [place] [address] Dr. Anthony Bonilla NEUT # 6.3 103/ul Normal 1.4-6.5 [facility] Comment on above: Performed By: #### U RCX #### [facility] [address] [place] [address] Dr. Anthony Bonilla Neutrophils/100 WBC (Bld) 74.5 % Normal 43.0-75.0 [facility] Comment on above: Performed By: #### U RCX #### [facility] [address] [place] [address] Dr. Anthony Bonilla Platelet mean volume (Bld) [Entitic vol] 9.8 fL Normal 9.5-13.5 [facility] Comment on above: Performed By: #### U RCX #### [facility] [address] [place] [address] Dr. Anthony Bonilla PLT 318 103/ul Normal 150-450 [facility] Comment on above: Performed By: #### U RCX #### [facility] [address] [place] [address] Dr. Anthony Bonilla RBC 3.79 106/ul Critically low 4.20-5.40 [facility] Comment on above: Performed By: #### U RCX #### [facility] [address] [place] [address] Dr. Anthony Bonilla WBC 8.5 103/ul Normal 4.0-11.0 [facility] Comment on above: Performed By: #### U RCX #### [facility] [address] [address] [address] Anthony Bonilla PROF 14(COMP METB)on 023 Albumin [Mass/Vol] 3.6 g/dL Normal 3.4-5.0 [facility] Comment on above: Performed By: #### U RCX #### [facility] [address] [address] [address] Anthony Bonilla Albumin/Globulin [Mass ratio] 1.2 {ratio} Normal [facility] Comment on above: Performed By: #### U RCX #### [facility] [address] [place] [address] Dr. Anthony Bonilla ALP [Catalytic activity/Vol] 27 U/L Critically low 46-116 [facility] Comment on above: Performed By: #### U RCX #### [facility] [address] [place] [address] Dr. Anthony Bonilla ALT [Catalytic activity/Vol] 21 U/L Normal 14-59 [facility] Comment on above: Performed By: #### U RCX #### [facility] [address] [place] [address] Dr. Anthony Bonilla Anion gap [Moles/Vol] 13.5 mmol/L Normal [facility] Comment on above: Performed By: #### U RCX #### [facility] [address] [place] [address] Dr. Anthony Bonilla AST [Catalytic activity/Vol] 19 U/L Normal 15-37 [facility] Comment on above: Performed By: #### U RCX #### [facility] [address] [address] [address] Anthony Bonilla Bilirubin [Mass/Vol] 0.6 mg/dL Normal 0.2-1.0 [facility] Comment on above: Performed By: #### U RCX #### [facility] [address] [place] [address] Dr. Anthony Bonilla Calcium [Mass/Vol] 9.2 mg/dL Normal 8.5-10.1 [facility] Comment on above: Performed By: #### U RCX #### [facility] [address] [place] [address] Dr. Anthony Bonilla Chloride [Moles/Vol] 104 mmol/L Normal 98-107 [facility] Comment on above: Performed By: #### U RCX #### [facility] [address] [address] [address] Anthony Bonilla CO2 [Moles/Vol] 28.9 mmol/L Normal 21.0-32.0 [facility] Comment on above: Performed By: #### U RCX #### [facility] [address] [place] [address] Dr. Anthony Bonilla Creatinine [Mass/Vol] 1.21 mg/dL Critically high 0.55-1.02 [facility] Comment on above: Performed By: #### U RCX #### [facility] [address] [place] [address] Dr. Anthony Bonilla EGFR-AF GRENADIAN 51 mL/min/1.73m2 Critically low >=60 [facility] Comment on above: Performed By: #### U RCX #### [facility] [address] [place] [address] Dr. Anthony Bonilla EGFR-NON AF GRENADIAN 42 mL/min/1.73m2 Critically low >=60 [facility] Comment on above: Performed By: #### U RCX #### [facility] [address] [place] [address] Dr. Anthony Bonilla Globulin (S) [Mass/Vol] 3.1 g/dL Normal [facility] Comment on above: Performed By: #### U RCX #### [facility] [address] [place] [address] Dr. Anthony Bonilla Glucose [Mass/Vol] 107 mg/dL Critically high 74-106 [facility] Comment on above: Performed By: #### U RCX #### [facility] [address] [place] [address] Dr. Anthony Bonilla Potassium [Moles/Vol] 3.4 mmol/L Critically low 3.5-5.1 [facility] Comment on above: Performed By: #### U RCX #### [facility] [address] [address] [address] Anthony Bonilla Protein [Mass/Vol] 6.7 g/dL Normal 6.4-8.2 [facility] Comment on above: Performed By: #### U RCX #### [facility] [address] [place] [address] Dr. Anthony Bonilla Sodium [Moles/Vol] 143 mmol/L Normal 136-145 [facility] Comment on above: Performed By: #### U RCX #### [facility] [address] [place] [address] Dr. Anthony Bonilla Urea nitrogen [Mass/Vol] 22.0 mg/dL Critically high 7.0-18.0 [facility] Comment on above: Performed By: #### U RCX #### [facility] [address] [place] [address] Dr. Anthony Bonilla Urea nitrogen/Creatinine [Mass ratio] 18.2 mg/mg Normal [facility] Comment on above: Performed By: #### U RCX #### [facility] [address] [place] [address] Dr. Anthony Bonilla Automated erythrocytes count in urine sediment (number/area)Ordered By: Gypsy Mcmahon on 02-16-2022 RBC Auto (Urine sed) [#/Area] 0-1 [HPF] 0-4 [facility] Automated leukocytes count i n urine sediment (number/area)Ordered By: Gypsy Mcmahon on 02-16-2022 WBC Auto (Urine sed) [#/Area] 20-49 [HPF] 0-4 [facility] Bilirubin Test strip Ql (U)O rdered By: Gypsy Mcmahon on 02-16-2022 Bilirubin Ql (U) Negative Negative [facility] Color Auto (U)Ordered By: Nicole Mcmahon on 02-16-2022 Color (U) Yellow Yellow [facility] Ketones Auto test strip (U) [Mass/Vol]Ordered By: Gypsy Mcmahon on 02-16-2022 Ketones (U) [Mass/Vol] Trace Negative [facility] - UrinalysisOrder ed By: Gypsy Mcmahon on 02-16-2022 Hyaline casts LM Ql (Urine sed) 9-19 [LPF] 0-8 [facility] Nitrite Test strip Ql (U)Ord ered By: Gypsy Mcmahon on 02-16-2022 Nitrite Ql (U) Positive Negative [facility] Protein Auto test strip (U) [Mass/Vol]Ordered By: Gypsy Mcmahon on 02-16-2022 Protein (U) [Mass/Vol] Negative Negative [facility] Specific gravity Auto test s trip (U) [Rel density]Ordered By: Gypsy Mcmahon on 02-16-2022 Specific gravity (U) [Rel density] 1.018 1.001-1.03 0 [facility] Squamous epithelial cells de tection in urine sediment by light microscopyOrdered By: Gypsy Mcmahon on 02-16-2022 Epithelial cells.squamous LM Ql (Urine sed) 5-9 [HPF] 0-2 [facility] Urine Cultureon 02-16-2022 Urine Culture >100,000 [employer] Other Urine Culture <16 [employer] Other Urine Culture <8/4 [employer] Other Urine Culture <4 [employer] Other Urine Culture <2 [employer] Other Urine Culture <1 [employer] Other Urine Culture <0.25 [employer] Other Urine Culture <0.5 [employer] Other Urine Culture <32 [employer] Other Urine Culture <0.5/9.5 [employer] Other Urine bacteria detection by automated methodOrdered By: Gypsy Mcmahon on 02-16-2022 Bacteria Auto Ql (U) 2+ None Seen [facility] Urine clarity by refractomet ry automatedOrdered By: Gypsy Mcmahon on 02-16-2022 Clarity Refractometry automated (U) Cloudy Clear [facility] Urine culture routineOrdered By: Gypsy Mcmahon on 02-16-2022 Bacteria identified Cx Nom (U) Klebsiella variicola [facility] Urine glucose measurement by automated test strip (mass/volume)Ordered By: Gypsy Mcmahon on 02-16-2022 Glucose Auto test strip (U) [Mass/Vol] Normal mg/dL Normal [facility] Urine hemoglobin detection b y automated test stripOrdered By: Gypsy Mcmahon on 02-16-2022 Hemoglobin Auto test strip Ql (U) Negative Negative [facility] Urine leukocyte esterase det ection by automated test stripOrdered By: Gypsy Mcmahon on 02-16-2022 Leukocyte esterase Auto test strip Ql (U) 2+ Negative [facility] Urobilinogen Auto test strip (U) [Mass/Vol]Ordered By: Gypsy Mcmahon on 02-16-2022 Urobilinogen (U) [Mass/Vol] Normal mg/dL Normal [facility] pH Auto test strip (U)Ordere d By: Gypsy Mcmahon on 02-16-2022 pH (U) 5.5 [pH] 5.0-9.0 [facility] CBC AUTO DIFFon 01-15-2022 BASO # 0.0 103/ul Normal 0.0-0.1 [facility] Comment on above: Performed By: #### C BC #### [facility] [address] [place] [address] Dr. Anthony Bonilla Basophils/100 WBC (Bld) 0.5 % Normal 0.2-2.0 [facility] Comment on above: Performed By: #### C BC #### [facility] [address] [address] [address] Anthony Bonilla EO # 0.1 103/ul Normal 0.0-0.7 [facility] Comment on above: Performed By: #### C BC #### [facility] [address] [address] [address] Anthony Bonilla Eosinophils/100 WBC (Bld) 0.9 % Normal 0.9-7.0 [facility] Comment on above: Performed By: #### C BC #### [facility] [address] [place] [address] Dr. Anthony Bonilla Erythrocyte distribution width (RBC) [Ratio] 14.8 % Normal 11.0-15.0 [facility] Comment on above: Performed By: #### C BC #### [facility] [address] [place] [address] Dr. Anthony Bonilla Hematocrit (Bld) [Volume fraction] 30.3 % Critically low 36.0-48.0 [facility] Comment on above: Performed By: #### C BC #### [facility] [address] [place] [address] Dr. Anthony Bonilla Hemoglobin (Bld) [Mass/Vol] 9.8 g/dL Critically low 12.0-16.0 [facility] Comment on above: Performed By: #### C BC #### [facility] [address] [place] [address] Dr. Anthony Bonilla IG # 0.03 10e3/ul Normal 0.00-0.03 [facility] Comment on above: Performed By: #### C BC #### [facility] [address] [place] [address] Dr. Anthony Bonilla IG % 0.3 % Normal 0.0-0.5 [facility] Comment on above: Performed By: #### C BC #### [facility] [address] [place] [address] Dr. Anthony Bonilla LYMPH # 1.4 103/ul Normal 1.2-3.8 [facility] Comment on above: Performed By: #### C BC #### [facility] [address] [place] [address] Dr. Anthony Bonilla Lymphocytes/100 WBC (Bld) 15.7 % Critically low 20.5-60.0 [facility] Comment on above: Performed By: #### C BC #### [facility] [address] [place] [address] Dr. Anthony Bonilla MANUAL DIFF REQ NO Normal [facility] Comment on above: Performed By: #### C BC #### [facility] [address] [address] [address] Anthony Bonilla MCH (RBC) [Entitic mass] 30.0 pg Normal 26.7-34.0 [facility] Comment on above: Performed By: #### C BC #### [facility] [address] [place] [address] Dr. Anthony Bonilla MCHC (RBC) [Mass/Vol] 32.3 g/dL Normal 29.9-35.2 [facility] Comment on above: Performed By: #### C BC #### [facility] [address] [place] [address] Dr. Anthony Bonilla MCV (RBC) [Entitic vol] 92.7 fL Normal 81.0-99.0 [facility] Comment on above: Performed By: #### C BC #### [facility] [address] [place] [address] Dr. Anthony Bonilla MONO # 1.1 103/ul Critically high 0.3-0.8 [facility] Comment on above: Performed By: #### C BC #### [facility] [address] [place] [address] Dr. Anthony Bonilla Monocytes/100 WBC (Bld) 12.0 % Normal 1.7-12.0 [facility] Comment on above: Performed By: #### C BC #### [facility] [address] [place] [address] Dr. Anthony Bonilla NEUT # 6.2 103/ul Normal 1.4-6.5 [facility] Comment on above: Performed By: #### C BC #### [facility] [address] [place] [address] Dr. Anthony Bonilla Neutrophils/100 WBC (Bld) 70.6 % Normal 43.0-75.0 [facility] Comment on above: Performed By: #### C BC #### [facility] [address] [place] [address] Dr. Anthony Bonilla Platelet mean volume (Bld) [Entitic vol] 9.8 fL Normal 9.5-13.5 [facility] Comment on above: Performed By: #### C BC #### [facility] [address] [address] [address] Anthony Bonilla PLT 305 103/ul Normal 150-450 [facility] Comment on above: Performed By: #### C BC #### [facility] [address] [address] [address] Anthony Bonilla RBC 3.27 106/ul Critically low 4.20-5.40 [facility] Comment on above: Performed By: #### C BC #### [facility] [address] [address] [address] Anthony Bonilla WBC 8.7 103/ul Normal 4.0-11.0 [facility] Comment on above: Performed By: #### C BC #### [facility] [address] [place] [address] Dr. Anthony Bonilla PROF CHEM 8 (BAS METB)on Anion gap [Moles/Vol] 12.2 mmol/L Normal [facility] Comment on above: Performed By: #### U RCX #### [facility] [address] [address] [address] Anthony Bonilla Calcium [Mass/Vol] 9.1 mg/dL Normal 8.5-10.1 [facility] Comment on above: Performed By: #### U RCX #### [facility] [address] [place] [address] Dr. Anthony Bonilla Chloride [Moles/Vol] 104 mmol/L Normal 98-107 [facility] Comment on above: Performed By: #### U RCX #### [facility] [address] [address] [address] Anthony Bonilla CO2 [Moles/Vol] 24.4 mmol/L Normal 21.0-32.0 [facility] Comment on above: Performed By: #### U RCX #### [facility] [address] [place] [address] Dr. Anthony Bonilla Creatinine [Mass/Vol] 1.20 mg/dL Critically high 0.55-1.02 [facility] Comment on above: Performed By: #### U RCX #### [facility] [address] [address] [address] Anthony Bonilla EGFR-AF GRENADIAN 52 mL/min/1.73m2 Critically low >=60 [facility] Comment on above: Performed By: #### U RCX #### [facility] [address] [address] [address] Anthony Bonilla EGFR-NON AF GRENADIAN 43 mL/min/1.73m2 Critically low >=60 [facility] Comment on above: Performed By: #### U RCX #### [facility] [address] [address] [address] Anthony Bonilla Glucose [Mass/Vol] 81 mg/dL Normal 74-106 [facility] Comment on above: Performed By: #### U RCX #### [facility] [address] [address] [address] Anthony Bonilla Potassium [Moles/Vol] 3.6 mmol/L Normal 3.5-5.1 [facility] Comment on above: Performed By: #### U RCX #### [facility] [address] [address] [address] Anthony Bonilla Sodium [Moles/Vol] 137 mmol/L Normal 136-145 [facility] Comment on above: Performed By: #### U RCX #### [facility] [address] [address] [address] Anthony Bonilla Urea nitrogen [Mass/Vol] 21.0 mg/dL Critically high 7.0-18.0 [facility] Comment on above: Performed By: #### U RCX #### [facility] [address] [address] [address] Anthony Bonilla Urea nitrogen/Creatinine [Mass ratio] 17.5 mg/mg Normal [facility] Comment on above: Performed By: #### U RCX #### [facility] [address] [address] [address] Anthony Bonilla CULTURE URINEon 12-29-2021 CULTURE [...] <=0.12 S F Nitrofurantoin <=16 S F Trimethoprim/Sulfametho xazole <=20 S F ORGANISM 2 Enterobacter cloacae complex ANTIBIOTIC M.I.C RX STATUS Piperacillin/Tazobactam <=4 S F Cefazolin >=64 R F Ceftazidime <=1 S F Ceftriaxone <=1 S F Ertapenem <=0.5 S F Imipenem <=0.25 S F Amikacin <=2 S F Gentamicin <=1 S F Tobramycin <=1 S F Ciprofloxacin <=0.25 S F Levofloxacin <=0.12 S F Nitrofurantoin 32 S F Trimethoprim/Sulfametho xazole <=20 S F Normal [facility] Comment on above: Performed By: #### U RCX #### [facility] [address] [place] [address] Dr. Anthony Bonilla ER URINE PROFILEon 2 Bilirubin Ql (U) SMALL Abnormal NEGATIVE [facility] Comment on above: Performed By: #### C BC #### [facility] [address] [place] [address] Dr. Anthony Bonilla Clarity (U) SL CLOUDY Abnormal CLEAR [facility] Comment on above: Performed By: #### C BC #### [facility] [address] [place] [address] Dr. Anthony Bonilla Color (U) YELLOW Normal YELLOW [facility] Comment on above: Performed By: #### C BC #### [facility] [address] [place] [address] Dr. Anthony Bonilla ERUCARMINA A micrscopic examination will be performed if indicated. Normal [facility] Comment on above: Performed By: #### C BC #### [facility] [address] [place] [address] Dr. Anthony Bonilla Glucose Ql (U) Negative Normal NEGATIVE [facility] Comment on above: Performed By: #### C BC #### [facility] [address] [place] [address] Dr. Anthony Bonilla Hemoglobin Ql (U) Negative Normal NEGATIVE [facility] Comment on above: Performed By: #### C BC #### [facility] [address] [place] [address] Dr. Anthony Bonilla Ketones Ql (U) TRACE Abnormal NEGATIVE [facility] Comment on above: Performed By: #### C BC #### [facility] [address] [place] [address] Dr. Anthony Bonilla LEUKOCYTES MODERATE Abnormal NEGATIVE [facility] Comment on above: Performed By: #### C BC #### [facility] [address] [place] [address] Dr. Anthony Bonilla Nitrite Ql (U) Positive Abnormal NEGATIVE [facility] Comment on above: Performed By: #### C BC #### [facility] [address] [place] [address] Dr. Anthony Bonilla pH (U) 7.5 [pH] Normal 5-9 [facility] Comment on above: Performed By: #### C BC #### [facility] [address] [place] [address] Dr. Anthony Bonilla Protein (U) [Mass/Vol] 30 mg/dL Abnormal NEGAT JAMAR/ TRACE [facility] Comment on above: Performed By: #### C BC #### [facility] [address] [place] [address] Dr. Anthony Bonilla SPEC GRAVITY 1.020 Normal 1.005-<=1. 025 [facility] Comment on above: Performed By: #### C BC #### [facility] [address] [place] [address] Dr. Anthony Bonilla UR MICRO IND INDICATED Normal [facility] Comment on above: Performed By: #### C BC #### [facility] [address] [place] [address] Dr. Anthony Bonilla Urobilinogen Qn (U) 0.2 {Gen'U}/dL Normal 0.2 - 1. 0 [facility] Comment on above: Performed By: #### C BC #### [facility] [address] [place] [address] Dr. Anthony Bonilla URINE MICROSCOPIC ONLYon BACTERIA TRACE Abnormal NONE SEEN [facility] Comment on above: Performed By: #### C BC #### [facility] [address] [place] [address] Dr. Anthony Bonilla Bacteria identified Cx Nom (U) INDICATED Normal [facility] Comment on above: Performed By: #### C BC #### [facility] [address] [place] [address] Dr. Anthony Bonilla CAST NONE SEEN Normal NONE SEEN [facility] Comment on above: Performed By: #### C BC #### [facility] [address] [place] [address] Dr. Anthony Bonilla Crystals LM Nom (Urine sed) NONE SEEN Normal NONE SEEN [facility] Comment on above: Performed By: #### C BC #### [facility] [address] [place] [address] Dr. Anthony Bonilla Epithelial cells LM Ql (Urine sed) FEW Abnormal NONE SEEN /RARE [facility] Comment on above: Performed By: #### C BC #### [facility] [address] [place] [address] Dr. Anthony Bonilla MUCOUS NONE SEEN Normal NONE SEEN [facility] Comment on above: Performed By: #### C BC #### [facility] [address] [place] [address] Dr. Anthony Bonilla RBC 0-2 Normal 0-2 [facility] Comment on above: Performed By: #### C BC #### [facility] [address] [place] [address] Dr. Anthony Bonilla WBC 5-10 Abnormal NONE SEEN [facility] Comment on above: Performed By: #### C BC #### [facility] [address] [place] [address] Dr. Anthony Bonilla PRBC LEUKOREDUCEDon 11-20-19 PRBC LEUKOREDUCED Cross Match Result Compatible Unit Blood Type A Pos Unit Number [id number] Status Information Transfused Product ID Red Blood Cells Product Code [id number] Normal [facility] Comment on above: Performed By: #### P RBC #### [facility] [address] [place] [address] Dr. Anthony Bonilla CBC AUTO DIFFon 11-10-2021 BASO # 0.0 103/ul Normal 0.0-0.1 [facility] Comment on above: Performed By: #### C BC #### [facility] [address] [address] [address] Anthony Bonilla Basophils/100 WBC (Bld) 0.7 % Normal 0.2-2.0 [facility] Comment on above: Performed By: #### C BC #### [facility] [address] [place] [address] Dr. Anthony Bonilla EO # 0.2 103/ul Normal 0.0-0.7 [facility] Comment on above: Performed By: #### C BC #### [facility] [address] [address] [address] Anthony Bonilla Eosinophils/100 WBC (Bld) 2.7 % Normal 0.9-7.0 [facility] Comment on above: Performed By: #### C BC #### [facility] [address] [place] [address] Dr. Anthony Bonilla Erythrocyte distribution width (RBC) [Ratio] 16.3 % Critically high 11.0-15.0 [facility] Comment on above: Performed By: #### C BC #### [facility] [address] [address] [address] Anthony Bonilla Hematocrit (Bld) [Volume fraction] 29.0 % Critically low 36.0-48.0 [facility] Comment on above: Performed By: #### C BC #### [facility] [address] [place] [address] Dr. Anthony Bonilla Hemoglobin (Bld) [Mass/Vol] 9.4 g/dL Critically low 12.0-16.0 [facility] Comment on above: Performed By: #### C BC #### [facility] [address] [address] [address] Anthony Bonilla IG # 0.04 10e3/ul Critically high 0.00-0.03 [facility] Comment on above: Performed By: #### C BC #### [facility] [address] [address] [address] Anthony Bonilla IG % 0.7 % Critically high 0.0-0.5 [facility] Comment on above: Performed By: #### C BC #### [facility] [address] [address] [address] Anthony Bonilla LYMPH # 1.2 103/ul Normal 1.2-3.8 [facility] Comment on above: Performed By: #### C BC #### [facility] [address] [place] [address] Dr. Anthony Bonilla Lymphocytes/100 WBC (Bld) 21.5 % Normal 20.5-60.0 [facility] Comment on above: Performed By: #### C BC #### [facility] [address] [address] [address] Anthony Bonilla MANUAL DIFF REQ NO Normal [facility] Comment on above: Performed By: #### C BC #### [facility] [address] [place] [address] Dr. Anthony Bonilla MCH (RBC) [Entitic mass] 32.3 pg Normal 26.7-34.0 [facility] Comment on above: Performed By: #### C BC #### [facility] [address] [place] [address] Dr. Anthony Bonilla MCHC (RBC) [Mass/Vol] 32.4 g/dL Normal 29.9-35.2 [facility] Comment on above: Performed By: #### C BC #### [facility] [address] [place] [address] Dr. Anthony Bonilla MCV (RBC) [Entitic vol] 99.7 fL Critically high 81.0-99.0 [facility] Comment on above: Performed By: #### C BC #### [facility] [address] [address] [address] Anthony Bonilla MONO # 0.7 103/ul Normal 0.3-0.8 [facility] Comment on above: Performed By: #### C BC #### [facility] [address] [address] [address] Anthony Bonilla Monocytes/100 WBC (Bld) 12.6 % Critically high 1.7-12.0 [facility] Comment on above: Performed By: #### C BC #### [facility] [address] [address] [address] Anthony Bonilla NEUT # 3.4 103/ul Normal 1.4-6.5 [facility] Comment on above: Performed By: #### C BC #### [facility] [address] [place] [address] Dr. Anthony Bonilla Neutrophils/100 WBC (Bld) 61.8 % Normal 43.0-75.0 [facility] Comment on above: Performed By: #### C BC #### [facility] [address] [place] [address] Dr. Anthony Bonilla Platelet mean volume (Bld) [Entitic vol] 9.0 fL Critically low 9.5-13.5 [facility] Comment on above: Performed By: #### C BC #### [facility] [address] [place] [address] Dr. Anthony Bonilla PLT 429 103/ul Normal 150-450 [facility] Comment on above: Performed By: #### C BC #### [facility] [address] [address] [address] Anthony Bonilla RBC 2.91 106/ul Critically low 4.20-5.40 [facility] Comment on above: Performed By: #### C BC #### [facility] [address] [address] [address] Anthony Bonilla WBC 5.5 103/ul Normal 4.0-11.0 [facility] Comment on above: Performed By: #### C BC #### [facility] [address] [address] [address] Anthony Bonilla PROF CHEM 8 (BAS METB)on Anion gap [Moles/Vol] 11.0 mmol/L Normal [facility] Comment on above: Performed By: #### B MP #### [facility] [address] [address] [address] Anthony Bonilla Calcium [Mass/Vol] 9.2 mg/dL Normal 8.5-10.1 [facility] Comment on above: Performed By: #### B MP #### [facility] [address] [address] [address] Anthony Bonilla Chloride [Moles/Vol] 107 mmol/L Normal 98-107 [facility] Comment on above: Performed By: #### B MP #### [facility] [address] [place] [address] Dr. Anthony Bonilla CO2 [Moles/Vol] 27.4 mmol/L Normal 21.0-32.0 [facility] Comment on above: Performed By: #### B MP #### [facility] [address] [address] [address] Anthony Bonilla Creatinine [Mass/Vol] 1.12 mg/dL Critically high 0.55-1.02 [facility] Comment on above: Performed By: #### B MP #### [facility] [address] [place] [address] Dr. Anthony Bonilla EGFR-AF GRENADIAN 56 mL/min/1.73m2 Critically low >=60 [facility] Comment on above: Performed By: #### B MP #### [facility] [address] [address] [address] Anthony Bonilla EGFR-NON AF GRENADIAN 46 mL/min/1.73m2 Critically low >=60 [facility] Comment on above: Performed By: #### B MP #### [facility] [address] [address] [address] Anthony Bonilla Glucose [Mass/Vol] 89 mg/dL Normal 74-106 [facility] Comment on above: Performed By: #### B MP #### [facility] [address] [address] [address] Anthony Bonilla Potassium [Moles/Vol] 4.4 mmol/L Normal 3.5-5.1 [facility] Comment on above: Performed By: #### B MP #### [facility] [address] [address] [address] Anthony Bonilla Sodium [Moles/Vol] 141 mmol/L Normal 136-145 [facility] Comment on above: Performed By: #### B MP #### [facility] [address] [place] [address] Dr. Anthony Bonilla Urea nitrogen [Mass/Vol] 18.0 mg/dL Normal 7.0-18.0 [facility] Comment on above: Performed By: #### B MP #### [facility] [address] [place] [address] Dr. Anthony Bonilla Urea nitrogen/Creatinine [Mass ratio] 16.1 mg/mg Normal [facility] Comment on above: Performed By: #### B MP #### [facility] [address] [place] [address] Dr. Anthony Bonilla CBC AUTO DIFFon 11-04-2021 BASO # 0.0 103/ul Normal 0.0-0.1 [facility] Comment on above: Performed By: #### C BC #### [facility] [address] [place] [address] Dr. Anthony Bonilla Basophils/100 WBC (Bld) 0.2 % Normal 0.2-2.0 [facility] Comment on above: Performed By: #### C BC #### [facility] [address] [place] [address] Dr. Anthony Bonilla EO # 0.1 103/ul Normal 0.0-0.7 [facility] Comment on above: Performed By: #### C BC #### [facility] [address] [place] [address] Dr. Anthony Bonilla Eosinophils/100 WBC (Bld) 0.8 % Critically low 0.9-7.0 [facility] Comment on above: Performed By: #### C BC #### [facility] [address] [address] [address] Anthony Bonilla Erythrocyte distribution width (RBC) [Ratio] 16.7 % Critically high 11.0-15.0 [facility] Comment on above: Performed By: #### C BC #### [facility] [address] [address] [address] Anthony Bonlila Hematocrit (Bld) [Volume fraction] 25.6 % Critically low 36.0-48.0 [facility] Comment on above: Performed By: #### C BC #### [facility] [address] [place] [address] Dr. Anthony Bonilla Hemoglobin (Bld) [Mass/Vol] 8.5 g/dL Critically low 12.0-16.0 [facility] Comment on above: Performed By: #### C BC #### [facility] [address] [place] [address] Dr. Anthony Bonilla IG # 0.05 10e3/ul Critically high 0.00-0.03 [facility] Comment on above: Performed By: #### C BC #### [facility] [address] [place] [address] Dr. Anthony Bonilla IG % 0.5 % Normal 0.0-0.5 [facility] Comment on above: Performed By: #### C BC #### [facility] [address] [place] [address] Dr. Anthony Bnoilla LYMPH # 0.6 103/ul Critically low 1.2-3.8 [facility] Comment on above: Performed By: #### C BC #### [facility] [address] [place] [address] Dr. Anthony Bonilla Lymphocytes/100 WBC (Bld) 6.2 % Critically low 20.5-60.0 [facility] Comment on above: Performed By: #### C BC #### [facility] [address] [place] [address] Dr. Anthony Bonilla MANUAL DIFF REQ NO Normal [facility] Comment on above: Performed By: #### C BC #### [facility] [address] [address] [address] Anthony Bonilla MCH (RBC) [Entitic mass] 31.6 pg Normal 26.7-34.0 [facility] Comment on above: Performed By: #### C BC #### [facility] [address] [place] [address] Dr. Anthony Bonilla MCHC (RBC) [Mass/Vol] 33.2 g/dL Normal 29.9-35.2 [facility] Comment on above: Performed By: #### C BC #### [facility] [address] [place] [address] Dr. Anthony Bonilla MCV (RBC) [Entitic vol] 95.2 fL Normal 81.0-99.0 [facility] Comment on above: Performed By: #### C BC #### [facility] [address] [place] [address] Dr. Anthony Bonilla MONO # 0.6 103/ul Normal 0.3-0.8 [facility] Comment on above: Performed By: #### C BC #### [facility] [address] [place] [address] Dr. Anthony Bonilla Monocytes/100 WBC (Bld) 6.1 % Normal 1.7-12.0 [facility] Comment on above: Performed By: #### C BC #### [facility] [address] [place] [address] Dr. Anthony Bonilla NEUT # 8.8 103/ul Critically high 1.4-6.5 [facility] Comment on above: Performed By: #### C BC #### [facility] [address] [place] [address] Dr. Anthony Bonilla Neutrophils/100 WBC (Bld) 86.2 % Critically high 43.0-75.0 [facility] Comment on above: Performed By: #### C BC #### [facility] [address] [place] [address] Dr. Anthony Bonilla Platelet mean volume (Bld) [Entitic vol] 9.8 fL Normal 9.5-13.5 [facility] Comment on above: Performed By: #### C BC #### [facility] [address] [address] [address] Anthony Bonilla PLT 156 103/ul Normal 150-450 [facility] Comment on above: Performed By: #### C BC #### [facility] [address] [place] [address] Dr. Anthony Bonilla RBC 2.69 106/ul Critically low 4.20-5.40 [facility] Comment on above: Performed By: #### C BC #### [facility] [address] [place] [address] Dr. Anthony Bonilla WBC 10.3 103/ul Normal 4.0-11.0 [facility] Comment on above: Performed By: #### C BC #### [facility] [address] [place] [address] Dr. Anthony Bonilla CULTURE URINEon 11-04-2021 CULTURE [...] <=0.12 S F Nitrofurantoin 32 S F Trimethoprim/Sulfametho xazole <=20 S F Normal [facility] Comment on above: Performed By: #### U RCX #### [facility] [address] [place] [address] Dr. Anthony Bonilla PROF CHEM 8 (BAS METB)on Anion gap [Moles/Vol] 12.9 mmol/L Normal [facility] [place] Comment on above: Performed By: #### U RCX #### [facility] [address] [place] [address] Dr. Anthony Bonilla Calcium [Mass/Vol] 8.6 mg/dL Normal 8.5-10.1 [facility] Comment on above: Performed By: #### U RCX #### [facility] [address] [address] [address] Anthony Bonilla Chloride [Moles/Vol] 108 mmol/L Critically high 98-107 [facility] Comment on above: Performed By: #### U RCX #### [facility] [address] [address] [address] Anthony Bonilla CO2 [Moles/Vol] 23.1 mmol/L Normal 21.0-32.0 [facility] Comment on above: Performed By: #### U RCX #### [facility] [address] [address] [address] Anthony Bonilla Creatinine [Mass/Vol] 0.98 mg/dL Normal 0.55-1.02 [facility] Comment on above: Performed By: #### U RCX #### [facility] [address] [address] [address] Anthony Bonilla EGFR-AF GRENADIAN >60 Normal >=60 [facility] Comment on above: Performed By: #### U RCX #### [facility] [address] [address] [address] Anthony Bonilla EGFR-NON AF GRENADIAN 54 mL/min/1.73m2 Critically low >=60 [facility] Comment on above: Performed By: #### U RCX #### [facility] [address] [address] [address] Anthony Bonilla Glucose [Mass/Vol] 86 mg/dL Normal 74-106 [facility] Comment on above: Performed By: #### U RCX #### [facility] [address] [address] [address] Anthony Bonilla Potassium [Moles/Vol] 4.0 mmol/L Normal 3.5-5.1 [facility] Comment on above: Performed By: #### U RCX #### [facility] [address] [address] [address] Anthony Bonilla Sodium [Moles/Vol] 140 mmol/L Normal 136-145 [facility] Comment on above: Performed By: #### U RCX #### [facility] [address] [place] [address] Dr. Anthony Bonilla Urea nitrogen [Mass/Vol] 31.0 mg/dL Critically high 7.0-18.0 [facility] Comment on above: Performed By: #### U RCX #### [facility] [address] [place] [address] Dr. Anthony Bonilla Urea nitrogen/Creatinine [Mass ratio] 31.6 mg/mg Normal [facility] Comment on above: Performed By: #### U RCX #### [facility] [address] [place] [address] Dr. Anthony Bonilla CBC AUTO DIFFon 11-03-2021 BASO # 0.0 103/ul Normal 0.0-0.1 [facility] Comment on above: Performed By: #### C BC #### [facility] [address] [place] [address] Dr. Anthony Bonilla Basophils/100 WBC (Bld) 0.3 % Normal 0.2-2.0 [facility] Comment on above: Performed By: #### C BC #### [facility] [address] [place] [address] Dr. Anthony Bonilla EO # 0.1 103/ul Normal 0.0-0.7 [facility] Comment on above: Performed By: #### C BC #### [facility] [address] [place] [address] Dr. Anthony Bonilla Eosinophils/100 WBC (Bld) 0.6 % Critically low 0.9-7.0 [facility] Comment on above: Performed By: #### C BC #### [facility] [address] [place] [address] Dr. Anthony Bonilla Erythrocyte distribution width (RBC) [Ratio] 14.0 % Normal 11.0-15.0 [facility] Comment on above: Performed By: #### C BC #### [facility] [address] [place] [address] Dr. Anthony Bonilla Hematocrit (Bld) [Volume fraction] 23.1 % Critically low 36.0-48.0 [facility] Comment on above: Result Comment: Flui ds given Performed By: #### C BC #### [facility] [address] [address] [address] Anthony Bonilla Hemoglobin (Bld) [Mass/Vol] 7.6 g/dL Critically low 12.0-16.0 [facility] Comment on above: Performed By: #### C BC #### [facility] [address] [address] [address] Anthony Bonilla IG # 0.07 10e3/ul Critically high 0.00-0.03 [facility] Comment on above: Performed By: #### C BC #### [facility] [address] [place] [address] Dr. Anthony Bonilla IG % 0.6 % Critically high 0.0-0.5 [facility] Comment on above: Performed By: #### C BC #### [facility] [address] [place] [address] Dr. Anthony Bonilla LYMPH # 0.7 103/ul Critically low 1.2-3.8 [facility] Comment on above: Performed By: #### C BC #### [facility] [address] [place] [address] Dr. Anthony Bonilla Lymphocytes/100 WBC (Bld) 5.7 % Critically low 20.5-60.0 [facility] Comment on above: Performed By: #### C BC #### [facility] [address] [place] [address] Dr. Anthony Bonilla MANUAL DIFF REQ NO Normal [facility] Comment on above: Performed By: #### C BC #### [facility] [address] [place] [address] Dr. Anthony Bonilla MCH (RBC) [Entitic mass] 32.6 pg Normal 26.7-34.0 [facility] Comment on above: Performed By: #### C BC #### [facility] [address] [place] [address] Dr. Anthony Bonilla MCHC (RBC) [Mass/Vol] 32.9 g/dL Normal 29.9-35.2 [facility] Comment on above: Performed By: #### C BC #### [facility] [address] [address] [address] Anthony Bonilla MCV (RBC) [Entitic vol] 99.1 fL Critically high 81.0-99.0 [facility] Comment on above: Performed By: #### C BC #### [facility] [address] [address] [address] Anthony Bonilla MONO # 0.8 103/ul Normal 0.3-0.8 [facility] Comment on above: Performed By: #### C BC #### [facility] [address] [address] [address] Anthony Bonilla Monocytes/100 WBC (Bld) 6.8 % Normal 1.7-12.0 [facility] Comment on above: Performed By: #### C BC #### [facility] [address] [address] [address] Anthony Bonilla NEUT # 9.8 103/ul Critically high 1.4-6.5 [facility] Comment on above: Performed By: #### C BC #### [facility] [address] [address] [address] Anthony Bonilla Neutrophils/100 WBC (Bld) 86.0 % Critically high 43.0-75.0 [facility] Comment on above: Performed By: #### C BC #### [facility] [address] [address] [address] Anthony Bonilla Platelet mean volume (Bld) [Entitic vol] 9.5 fL Normal 9.5-13.5 [facility] Comment on above: Performed By: #### C BC #### [facility] [address] [address] [address] Anthony Bonilla PLT 160 103/ul Normal 150-450 [facility] Comment on above: Performed By: #### C BC #### [facility] [address] [address] [address] Anthony Bonilla RBC 2.33 106/ul Critically low 4.20-5.40 [facility] Comment on above: Performed By: #### C BC #### [facility] [address] [place] [address] Dr. Anthony Bonilla WBC 11.4 103/ul Critically high 4.0-11.0 [facility] Comment on above: Performed By: #### C BC #### [facility] [address] [place] [address] Dr. Anthony Bonilla HEMOGLOBIN AND HEMATOCRITon 11-03-2021 Hematocrit (Bld) [Volume fraction] 27.0 % Critically low 36.0-48.0 [facility] Comment on above: Performed By: #### U RCX #### [facility] [address] [place] [address] Dr. Anthony Bonilla Hemoglobin (Bld) [Mass/Vol] 9.1 g/dL Critically low 12.0-16.0 [facility] Comment on above: Performed By: #### U RCX #### [facility] [address] [place] [address] Dr. Anthony Bonilla OCC BLD IMMUNO SCREENon 10-10 OCCULT BLOOD Positive Abnormal NEGATIVE [facility] Comment on above: Performed By: #### C BC #### [facility] [address] [place] [address] Dr. Anthony Bonilla PROF CHEM 8 (BAS METB)on Anion gap [Moles/Vol] 10.7 mmol/L Normal [facility] [place] Comment on above: Performed By: #### C BC #### [facility] [address] [place] [address] Dr. Anthony Bonilla Calcium [Mass/Vol] 8.6 mg/dL Normal 8.5-10.1 [facility] Comment on above: Performed By: #### C BC #### [facility] [address] [place] [address] Dr. Anthony Bonilla Chloride [Moles/Vol] 107 mmol/L Normal 98-107 [facility] Comment on above: Performed By: #### C BC #### [facility] [address] [place] [address] Dr. Anthony Bonilla CO2 [Moles/Vol] 24.4 mmol/L Normal 21.0-32.0 [facility] Comment on above: Performed By: #### C BC #### [facility] [address] [address] [address] Anthony Bonilla Creatinine [Mass/Vol] 0.98 mg/dL Normal 0.55-1.02 [facility] Comment on above: Performed By: #### C BC #### [facility] [address] [address] [address] Anthony Bonilla EGFR-AF GRENADIAN >60 Normal >=60 [facility] Comment on above: Performed By: #### C BC #### [facility] [address] [address] [address] Anthony Bonilla EGFR-NON AF GRENADIAN 54 mL/min/1.73m2 Critically low >=60 [facility] Comment on above: Performed By: #### C BC #### [facility] [address] [address] [address] Anthony Bonilla Glucose [Mass/Vol] 98 mg/dL Normal 74-106 [facility] Comment on above: Performed By: #### C BC #### [facility] [address] [address] [address] Anthony Bonilla Potassium [Moles/Vol] 4.1 mmol/L Normal 3.5-5.1 [facility] Comment on above: Performed By: #### C BC #### [facility] [address] [address] [address] Anthony Bonilla Sodium [Moles/Vol] 138 mmol/L Normal 136-145 [facility] Comment on above: Performed By: #### C BC #### [facility] [address] [address] [address] Anthony Bonilla Urea nitrogen [Mass/Vol] 43.0 mg/dL Critically high 7.0-18.0 [facility] Comment on above: Performed By: #### C BC #### [facility] [address] [address] [address] Anthony Bonilla Urea nitrogen/Creatinine [Mass ratio] 43.9 mg/mg Normal [facility] Comment on above: Performed By: #### C BC #### [facility] [address] [address] [address] Anthony Bonilla TYPE AND SCREENon 11-03-2021 TYPE AND SCREEN Negative Normal [facility] Comment on above: Performed By: #### C BC #### [facility] [address] [place] [address] Dr. Anthony Bonilla CBC AUTO DIFFon 11-02-2021 BASO # 0.0 103/ul Normal 0.0-0.1 [facility] Comment on above: Performed By: #### U RCX #### [facility] [address] [place] [address] Dr. Anthony Bonilla Basophils/100 WBC (Bld) 0.3 % Normal 0.2-2.0 [facility] Comment on above: Performed By: #### U RCX #### [facility] [address] [place] [address] Dr. Anthony Bonilla EO # 0.0 103/ul Normal 0.0-0.7 [facility] Comment on above: Performed By: #### U RCX #### [facility] [address] [place] [address] Dr. Anthony Bonilla Eosinophils/100 WBC (Bld) 0.1 % Critically low 0.9-7.0 [facility] Comment on above: Performed By: #### U RCX #### [facility] [address] [place] [address] Dr. Anthony Bonilla Erythrocyte distribution width (RBC) [Ratio] 13.9 % Normal 11.0-15.0 [facility] Comment on above: Performed By: #### U RCX #### [facility] [address] [place] [address] Dr. Anthony Bonilla Hematocrit (Bld) [Volume fraction] 31.8 % Critically low 36.0-48.0 [facility] Comment on above: Performed By: #### U RCX #### [facility] [address] [place] [address] Dr. Anthony Bonilla Hemoglobin (Bld) [Mass/Vol] 10.5 g/dL Critically low 12.0-16.0 [facility] Comment on above: Performed By: #### U RCX #### [facility] [address] [place] [address] Dr. Anthony Bonilla IG # 0.07 10e3/ul Critically high 0.00-0.03 [facility] Comment on above: Performed By: #### U RCX #### [facility] [address] [place] [address] Dr. Anthony Bonilla IG % 0.5 % Normal 0.0-0.5 [facility] Comment on above: Performed By: #### U RCX #### [facility] [address] [place] [address] Dr. Anthony Bonilla LYMPH # 0.9 103/ul Critically low 1.2-3.8 [facility] Comment on above: Performed By: #### U RCX #### [facility] [address] [place] [address] Dr. Anthony Bonilla Lymphocytes/100 WBC (Bld) 6.1 % Critically low 20.5-60.0 [facility] Comment on above: Performed By: #### U RCX #### [facility] [address] [place] [address] Dr. Anthony Bonilla MANUAL DIFF REQ NO Normal [facility] Comment on above: Performed By: #### U RCX #### [facility] [address] [address] [address] Anthony Bonilla MCH (RBC) [Entitic mass] 32.7 pg Normal 26.7-34.0 [facility] Comment on above: Performed By: #### U RCX #### [facility] [address] [place] [address] Dr. Anthony Bonilla MCHC (RBC) [Mass/Vol] 33.0 g/dL Normal 29.9-35.2 [facility] Comment on above: Performed By: #### U RCX #### [facility] [address] [place] [address] Dr. Anthony Bonilla MCV (RBC) [Entitic vol] 99.1 fL Critically high 81.0-99.0 [facility] Comment on above: Performed By: #### U RCX #### [facility] [address] [address] [address] Anthony Bonilla MONO # 1.0 103/ul Critically high 0.3-0.8 [facility] Comment on above: Performed By: #### U RCX #### [facility] [address] [place] [address] Dr. Anthony Bonilla Monocytes/100 WBC (Bld) 6.8 % Normal 1.7-12.0 [facility] Comment on above: Performed By: #### U RCX #### [facility] [address] [place] [address] Dr. Anthony Bonilla NEUT # 12.1 103/ul Critically high 1.4-6.5 [facility] Comment on above: Performed By: #### U RCX #### [facility] [address] [place] [address] Dr. Anthony Bonilla Neutrophils/100 WBC (Bld) 86.2 % Critically high 43.0-75.0 [facility] Comment on above: Performed By: #### U RCX #### [facility] [address] [place] [address] Dr. Anthony Bonilla Platelet mean volume (Bld) [Entitic vol] 9.8 fL Normal 9.5-13.5 [facility] Comment on above: Performed By: #### U RCX #### [facility] [address] [place] [address] Dr. Anthony Bonilla PLT 175 103/ul Normal 150-450 [facility] Comment on above: Performed By: #### U RCX #### [facility] [address] [place] [address] Dr. Anthony Bonilla RBC 3.21 106/ul Critically low 4.20-5.40 [facility] Comment on above: Performed By: #### U RCX #### [facility] [address] [place] [address] Dr. Anthony Bonilla WBC 14.0 103/ul Critically high 4.0-11.0 [facility] Comment on above: Performed By: #### U RCX #### [facility] [address] [address] [address] HEAD WO CONon [...] HERNANDO HAMLIN Date: 2021-11-01 22:36 Normal [facility] PROF CHEM 8 (BAS METB)on Anion gap [Moles/Vol] 12.2 mmol/L Normal [facility] Comment on above: Performed By: #### C BC #### [facility] [address] [place] [address] Dr. Anthony Bonilla Calcium [Mass/Vol] 8.7 mg/dL Normal 8.5-10.1 [facility] Comment on above: Performed By: #### C BC #### [facility] [address] [address] [address] Anthony Bonilla Chloride [Moles/Vol] 103 mmol/L Normal 98-107 [facility] Comment on above: Performed By: #### C BC #### [facility] [address] [place] [address] Dr. Anthony Bonilla CO2 [Moles/Vol] 25.7 mmol/L Normal 21.0-32.0 [facility] Comment on above: Performed By: #### C BC #### [facility] [address] [address] [address] Anthony Bonilla Creatinine [Mass/Vol] 1.08 mg/dL Critically high 0.55-1.02 [facility] Comment on above: Performed By: #### C BC #### [facility] [address] [address] [address] Anthony Bonilla EGFR-AF GRENADIAN 58 mL/min/1.73m2 Critically low >=60 [facility] Comment on above: Performed By: #### C BC #### [facility] [address] [address] [address] Anthony Bonilla EGFR-NON AF GRENADIAN 48 mL/min/1.73m2 Critically low >=60 [facility] Comment on above: Performed By: #### C BC #### [facility] [address] [address] [address] Anthony Bonilla Glucose [Mass/Vol] 84 mg/dL Normal 74-106 [facility] Comment on above: Performed By: #### C BC #### [facility] [address] [address] [address] Anthony Bonilla Potassium [Moles/Vol] 4.9 mmol/L Normal 3.5-5.1 [facility] Comment on above: Performed By: #### C BC #### [facility] [address] [address] [address] Anthony Bonilla Sodium [Moles/Vol] 136 mmol/L Normal 136-145 [facility] Comment on above: Performed By: #### C BC #### [facility] [address] [address] [address] Anthony Bonilla Urea nitrogen [Mass/Vol] 33.0 mg/dL Critically high 7.0-18.0 [facility] Comment on above: Performed By: #### C BC #### [facility] [address] [address] [address] Anthony Bonilla Urea nitrogen/Creatinine [Mass ratio] 30.6 mg/mg Normal [facility] Comment on above: Performed By: #### C BC #### [facility] [address] [address] [address] Anthony Bonilla XR CHEST 1 Von [...] GIANA HOLLY Date: 2021-11-01 22:05 Normal [facility] CARDIAC DARWIN ADMITon 022 CK [Catalytic activity/Vol] 92 U/L Normal 26-192 [facility] Comment on above: Performed By: #### C BC #### [facility] [address] [place] [address] Dr. Anthony Bonilla CK.MB [Mass/Vol] 1.73 ng/mL Normal <=3.60 [facility] Comment on above: Performed By: #### C BC #### [facility] [address] [place] [address] Dr. Anthony Bonilla HSTROP 20.0 pg/mL Normal 4.0-51.3 [facility] Comment on above: Result Comment: CUT- OFF POINTS HAVE BEEN ESTABLISHED BASED ON THE FOURTH UNIVERSAL DEFINITIONS OF MYOCARDIAL INFARCTION. THE UPPER REFERENCE LIMIT (URL) OF TROPONIN, DEFINED THE 99TH PERCENTILE OF cTnI DISTRIBUTION IN A REFERENCE POPULATION, HAS BEEN CONFIRMED THE DECISION THRESHOLD FOR NE DIAGNOSIS. Performed By: #### C BC #### [facility] [address] [address] [address] Anthony Bonilla CANDIDA 58 ng/mL Normal 9-82 [facility] Comment on above: Performed By: #### C BC #### [facility] [address] [place] [address] Dr. Anthony Bonilla CBC AUTO DIFFon 11-01-2021 BASO # 0.0 103/ul Normal 0.0-0.1 [facility] Comment on above: Performed By: #### U RCX #### [facility] [address] [address] [address] Anthony Bonilla Basophils/100 WBC (Bld) 0.2 % Normal 0.2-2.0 [facility] Comment on above: Performed By: #### U RCX #### [facility] [address] [place] [address] Dr. Anthony Bonilla EO # 0.0 103/ul Normal 0.0-0.7 [facility] Comment on above: Performed By: #### U RCX #### [facility] [address] [place] [address] Dr. Anthony Bonilla Eosinophils/100 WBC (Bld) 0.0 % Critically low 0.9-7.0 [facility] Comment on above: Performed By: #### U RCX #### [facility] [address] [place] [address] Dr. Anthony Bonilla Erythrocyte distribution width (RBC) [Ratio] 14.1 % Normal 11.0-15.0 [facility] Comment on above: Performed By: #### U RCX #### [facility] [address] [place] [address] Dr. Anthony Bonilla Hematocrit (Bld) [Volume fraction] 36.0 % Normal 36.0-48.0 [facility] Comment on above: Performed By: #### U RCX #### [facility] [address] [place] [address] Dr. Anthony Bonilla Hemoglobin (Bld) [Mass/Vol] 12.1 g/dL Normal 12.0-16.0 [facility] Comment on above: Performed By: #### U RCX #### [facility] [address] [place] [address] Dr. Anthony Bonilla IG # 0.11 10e3/ul Critically high 0.00-0.03 [facility] Comment on above: Performed By: #### U RCX #### [facility] [address] [place] [address] Dr. Anthony Bonilla IG % 0.5 % Normal 0.0-0.5 [facility] Comment on above: Performed By: #### U RCX #### [facility] [address] [place], [place] [id number] Dr. Anthony Bonilla LYMPH # 0.7 103/ul Critically low 1.2-3.8 [facility] Comment on above: Performed By: #### U RCX #### [facility] [address] [place] [address] Dr. Anthony Bonilla Lymphocytes/100 WBC (Bld) 3.2 % Critically low 20.5-60.0 [facility] Comment on above: Performed By: #### U RCX #### [facility] [address] [place] [address] Dr. Anthony Bonilla MANUAL DIFF REQ NO Normal [facility] Comment on above: Performed By: #### U RCX #### [facility] [address] [place] [address] Dr. Anthony Bonilla MCH (RBC) [Entitic mass] 33.0 pg Normal 26.7-34.0 [facility] Comment on above: Performed By: #### U RCX #### [facility] [address] [place] [address] Dr. Anthony Bonilla MCHC (RBC) [Mass/Vol] 33.6 g/dL Normal 29.9-35.2 [facility] Comment on above: Performed By: #### U RCX #### [facility] [address] [place] [address] Dr. Anthony Bonilla MCV (RBC) [Entitic vol] 98.1 fL Normal 81.0-99.0 [facility] Comment on above: Performed By: #### U RCX #### [facility] [address] [place] [address] Dr. Anthony Bonilla MONO # 1.1 103/ul Critically high 0.3-0.8 [facility] Comment on above: Performed By: #### U RCX #### [facility] [address] [place] [address] Dr. Anthony Bonilla Monocytes/100 WBC (Bld) 4.8 % Normal 1.7-12.0 [facility] Comment on above: Performed By: #### U RCX #### [facility] [address] [address] [address] Anhtony Bonilla NEUT # 20.3 103/ul Critically high 1.4-6.5 [facility] Comment on above: Performed By: #### U RCX #### [facility] [address] [place] [address] Dr. Anthony Bonilla Neutrophils/100 WBC (Bld) 91.3 % Critically high 43.0-75.0 [facility] Comment on above: Performed By: #### U RCX #### [facility] [address] [place] [address] Dr. Anthony Bonilla Platelet mean volume (Bld) [Entitic vol] 10.8 fL Normal 9.5-13.5 [facility] Comment on above: Performed By: #### U RCX #### [facility] [address] [place] [address] Dr. Anthony Bonilla PLT 179 103/ul Normal 150-450 [facility] Comment on above: Performed By: #### U RCX #### [facility] [address] [place] [address] Dr. Anthony Bonilla RBC 3.67 106/ul Critically low 4.20-5.40 [facility] Comment on above: Performed By: #### U RCX #### [facility] [address] [place] [address] Dr. Anthony Bonilla WBC 22.2 103/ul Critically high 4.0-11.0 [facility] Comment on above: Performed By: #### U RCX #### [facility] [address] [place] [address] Dr. Anthony Bonilla CULTURE BLOODon 11-01-2021 Microscopic examination of blood, culture Culture Observations: NO GROWTH AT 5 DAYS. Normal [facility] Comment on above: Performed By: #### B LDCX2 #### [facility] [address] [place] [address] Dr. Anthony Bonilla Performed By: #### C BC #### [facility] [address] [place] [address] Dr. Anthony Bonilla Covid-19 PCR (CVDTB)on 10-10 SARS-CoV-2 (COVID-19) RNA OH+probe Ql (Unsp spec) Detected Critically abnormal NOT DETECTED [facility] Comment on above: Result Comment: This test is not yet approved or cleared by the [place] FDA. When there are no FDA-approved or cleared tests available, and other criteria are met, FDA can make tests available under an emergency access mechanism called an Emergency Use Authorization (EUA). The EUA for this test is supported by the [place] [employer] Service's declaration that [...] used). Performed By: #### C BC #### [facility] [address] [place] [address] Dr. Anthony Bonilla ER URINE PROFILEon Bilirubin Ql (U) Negative Normal NEGATIVE [facility] Comment on above: Performed By: #### U RCX #### [facility] [address] [place] [address] Dr. Anthony Bonilla Clarity (U) CLEAR Normal CLEAR [facility] Comment on above: Performed By: #### U RCX #### [facility] [address] [place] [address] Dr. Anthony Bonilla Color (U) LT. YELLOW Normal YELLOW [facility] Comment on above: Performed By: #### U RCX #### [facility] [address] [place] [address] Dr. Anthony Bonilla ERUAHD A micrscopic examination will be performed if indicated. Normal [facility] Comment on above: Performed By: #### U RCX #### [facility] [address] [place] [address] Dr. Anthony Bonilla Glucose Ql (U) Negative Normal NEGATIVE [facility] Comment on above: Performed By: #### U RCX #### [facility] [address] [place] [address] Dr. Anthony Bonilla Hemoglobin Ql (U) TRACE-INTACT Abnormal NEGATIVE [facility] Comment on above: Performed By: #### U RCX #### [facility] [address] [place] [address] Dr. Anthony Bonilla Ketones Ql (U) Negative Normal NEGATIVE [facility] Comment on above: Performed By: #### U RCX #### [facility] [address] [place] [address] Dr. Anthony Bonilla LEUKOCYTES Negative Normal NEGATIVE [facility] Comment on above: Performed By: #### U RCX #### [facility] [address] [place] [address] Dr. Anthony Bonilla Nitrite Ql (U) Negative Normal NEGATIVE [facility] Comment on above: Performed By: #### U RCX #### [facility] [address] [place] [address] Dr. Anthony Bonilla pH (U) 6.0 [pH] Normal 5-9 [facility] Comment on above: Performed By: #### U RCX #### [facility] [address] [place] [address] Dr. Anthony Bonilla SPEC GRAVITY 1.020 Normal 1.005-<=1. 025 [facility] Comment on above: Performed By: #### U RCX #### [facility] [address] [place] [address] Dr. Anthony Bonilla UA PROTEIN Negative Normal NEGATIVE/ TRACE [facility] Comment on above: Performed By: #### U RCX #### [facility] [address] [address] [address] Anthony Bonilla UR MICRO IND INDICATED Normal [facility] Comment on above: Performed By: #### U RCX #### [facility] [address] [place] [address] Dr. Anthony Bonilla Urobilinogen Qn (U) 1.0 {Gen'U}/dL Normal 0.2 - 1. 0 [facility] Comment on above: Performed By: #### U RCX #### [facility] [address] [place] [address] Dr. Anthony Bonilla LACTATE/LACTIC ACIDon 2021 Lactate [Moles/Vol] 1.6 mmol/L Normal 0.4-1.9 [facility] Comment on above: Performed By: #### C BC #### [facility] [address] [place] [address] Dr. Anthony Bonilla PROF 14(COMP METB)on 022 Albumin [Mass/Vol] 3.2 g/dL Critically low 3.4-5.0 [facility] [place] Comment on above: Performed By: #### C BC #### [facility] [address] [place] [address] Dr. Anthony Bonilla Albumin/Globulin [Mass ratio] 0.9 {ratio} Normal [facility] Comment on above: Performed By: #### C BC #### [facility] [address] [place] [address] Dr. Anthony Bonilla ALP [Catalytic activity/Vol] 26 U/L Critically low 46-116 [facility] Comment on above: Performed By: #### C BC #### [facility] [address] [place] [address] Dr. Anthony Bonilla ALT [Catalytic activity/Vol] 32 U/L Normal 14-59 [facility] Comment on above: Performed By: #### C BC #### [facility] [address] [place] [address] Dr. Anthony Bonilla Anion gap [Moles/Vol] 11.5 mmol/L Normal [facility] Comment on above: Performed By: #### C BC #### [facility] [address] [place] [address] Dr. Anthony Bonilla AST [Catalytic activity/Vol] 16 U/L Normal 15-37 [facility] Comment on above: Performed By: #### C BC #### [facility] [address] [place] [address] Dr. Anthony Bonilla Bilirubin [Mass/Vol] 1.2 mg/dL Critically high 0.2-1.0 [facility] Comment on above: Performed By: #### C BC #### [facility] [address] [place] [address] Dr. Anthony Bonilla Calcium [Mass/Vol] 9.0 mg/dL Normal 8.5-10.1 [facility] Comment on above: Performed By: #### C BC #### [facility] [address] [address] [address] Anthony Bonilla Chloride [Moles/Vol] 102 mmol/L Normal 98-107 [facility] Comment on above: Performed By: #### C BC #### [facility] [address] [address] [address] Anthony Bonilla CO2 [Moles/Vol] 25.2 mmol/L Normal 21.0-32.0 [facility] Comment on above: Performed By: #### C BC #### [facility] [address] [address] [address] Anthony Bonilla Creatinine [Mass/Vol] 1.25 mg/dL Critically high 0.55-1.02 [facility] Comment on above: Performed By: #### C BC #### [facility] [address] [address] [address] Anthony Bonilla EGFR-AF GRENADIAN 49 mL/min/1.73m2 Critically low >=60 [facility] Comment on above: Performed By: #### C BC #### [facility] [address] [place] [address] Dr. Anthony Bonilla EGFR-NON AF GRENADIAN 41 mL/min/1.73m2 Critically low >=60 [facility] Comment on above: Performed By: #### C BC #### [facility] [address] [address] [address] Anthony Bonilla Globulin (S) [Mass/Vol] 3.4 g/dL Normal [facility] Comment on above: Performed By: #### C BC #### [facility] [address] [address] [address] Anthony Bonilla Glucose [Mass/Vol] 102 mg/dL Normal 74-106 [facility] Comment on above: Performed By: #### C BC #### [facility] [address] [place] [address] Dr. Anthony Bonilla Potassium [Moles/Vol] 4.7 mmol/L Normal 3.5-5.1 [facility] Comment on above: Performed By: #### C BC #### [facility] [address] [address] [address] Anthony Bonilla Protein [Mass/Vol] 6.6 g/dL Normal 6.4-8.2 [facility] Comment on above: Performed By: #### C BC #### [facility] [address] [address] [address] Anthony Bonilla Sodium [Moles/Vol] 134 mmol/L Critically low 136-[address] [facility] Comment on above: Performed By: #### C BC #### [facility] [address] [address] [address] Anthony Bonilla Urea nitrogen [Mass/Vol] 33.0 mg/dL Critically high 7.0-18.0 [facility] Comment on above: Performed By: #### C BC #### [facility] [address] [address] [address] Anthony Bonilla Urea nitrogen/Creatinine [Mass ratio] 26.4 mg/mg Normal [facility] Comment on above: Performed By: #### C BC #### [facility] [address] [place] [address] Dr. Anthony Bonilla PROTIMEon 11-01-2021 INR Coag (PPP) [Relative time] 0.97 {INR} Normal [facility] Comment on above: Performed By: #### U RCX #### [facility] [address] [place] [address] Dr. Anthony Bonilla INR GUIDELINES SEE BELOW Normal [facility] Comment on above: Result Comment: MEGAN RED INR: 2.0 - 3.0 CONDITIONS NOT LISTED BELOW 2.5 - 3.5 FOR PROSTHETIC HEART VALVE REPLACEMENT 2.5 - 3.5 RECURRENT THROMBOSIS Performed By: #### U RCX #### [facility] [address] [place] [address] Dr. Anthony Bonilla PT Coag (PPP) [Time] 10.5 s Normal 9.0-11.6 [facility] Comment on above: Performed By: #### U RCX #### [facility] [address] [place] [address] Dr. Anthony Bonilla PTTon 11-01-2021 aPTT Coag (Bld) [Time] 27.8 s Normal 22.3-36.2 Th e [facility] Comment on above: Performed By: #### U RCX #### [facility] [address] [place] [address] Dr. Anthony Bonilla TSHon 11-01-2021 TSH 1.011 uIU/mL Normal 0.358-3.74 0 [facility] Comment on above: Performed By: #### C BC #### [facility] [address] [place] [address] Dr. Anthony Bonilla URINE MICROSCOPIC ONLYon BACTERIA LARGE Abnormal NONE SEEN [facility] Comment on above: Performed By: #### U RCX #### [facility] [address] [place] [address] Dr. Anthony Bonilla Bacteria identified Cx Nom (U) INDICATED Normal [facility] Comment on above: Performed By: #### U RCX #### [facility] [address] [place] [address] Dr. Anthony Bonilla CAST NONE SEEN Normal NONE SEEN [facility] Comment on above: Performed By: #### U RCX #### [facility] [address] [place] [address] Dr. Anthony Bonilla Crystals LM Nom (Urine sed) NONE SEEN Normal NONE SEEN [facility] Comment on above: Performed By: #### U RCX #### [facility] [address] [place] [address] Dr. Anthony Bonilla Epithelial cells LM Ql (Urine sed) FEW Abnormal NONE SEEN /RARE [facility] Comment on above: Performed By: #### U RCX #### [facility] [address] [place] [address] Dr. Anthony Bonilla MUCOUS NONE SEEN Normal NONE SEEN [facility] Comment on above: Performed By: #### U RCX #### [facility] [address] [place] [address] Dr. Anthony Bonilla RBC 2-5 Abnormal 0-2 [facility] Comment on above: Performed By: #### U RCX #### [facility] [address] [address] [address] Anthony Bonilla WBC 0-2 Abnormal NONE SEEN [facility] Comment on above: Performed By: #### U RCX #### [facility] [address] [address] [address] Anthony Bonilla Covid-19 PCR (CVDTBH)on -2021 SARS-CoV-2 (COVID-19) RNA OH+probe Ql (Unsp spec) Detected Critically abnormal NOT DETECTED [facility] Comment on above: Result Comment: This test is not yet approved or cleared by the [place] FDA. When there are no FDA-approved or cleared tests available, and other criteria are met, FDA can make tests available under an emergency access mechanism called an Emergency Use Authorization (EUA). The EUA for this test is supported by the Dog Walker of Health and Human Service's declaration that [...] used). Performed By: #### C BC #### [facility] [address] [address] [address] Anthony Bonilla Covid-19 PCR (CVDTBH)on SARS-CoV-2 (COVID-19) RNA [place]+probe Ql (Unsp spec) Not detected Normal NOT DETECTED [facility] Comment on above: Result Comment: This test is not yet approved or cleared by the [place] FDA. When there are no FDA-approved or cleared tests available, and other criteria are met, FDA can make tests available under an emergency access mechanism called an Emergency Use Authorization (EUA). The EUA for this test is supported by the Dog Walker of Health and Human Service's (HHS's) declaration [...] SARS-CoV-2. Performed By: #### U RCX #### [facility] [address] [place], [place] [address] Dr. 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 Any time this information is not complete, it is the retirement benefits specialist?s responsibility to query the physician. Based on [...] timely attention to this matter. Ambar Manley Emblem Fuser Tender Ext [phone] [Electronically Signed on: 10/18/2019 21:40 EDT] Mi Licea DO [Verified on: 10/18/2019 21:40 EDT] Mi Licea DO [Transcribed on: 10/02/2019 11:06 EDT] [facility] Consent Formson 09-29-2019 Consent Forms [id number]#1.00O [facility] Medication Managementon 09-09 Medication Management [id number]#1.00O [facility] Outside Recordson 09-29-2019 Outside Records [id number]#1.00O [facility] Outside Records [id number]#1.00O [facility] Provider Orderson 09-29-2019 Provider Orders [id number]#1.00O TGTIFF Normal [facility] Telemetry Stripson 0 Telemetry Strips [id number]#1.00O TGTIFF Normal [facility] .Auto Diff 1on 2019 Auto Brown % 11 % Normal 1-12 [facility] Comment on above: Performed By: #### 1 [id number], [id number], [id number] #### [facility] (DEFAULT) [address] [place] [address] Baso Abs# 0.0 x10 Normal 0.0-0.2 [facility] Comment on above: Performed By: #### 1 [id number], [id number], [id number] #### [facility] (DEFAULT) [address] [place] [address] Basophils/100 WBC (Bld) 0.1 % Low 0.2-2.0 [facility] Comment on above: Performed By: #### 1 [id number], [id number], [id number] #### [facility] (DEFAULT) [address] [place] [address] Eos Abs# 0.2 x10 Normal 0.0-0.4 [facility] Comment on above: Performed By: #### 1 [id number], [id number], [id number] #### [facility] (DEFAULT) [address] [place] [address] Eosinophils/100 WBC (Bld) 2.2 % Normal 0.9-4.0 [facility] Comment on above: Performed By: #### 1 [id number], [id number], [id number] #### [facility] (DEFAULT) [address] [place] [address] Lymphocytes (Bld) [#/Vol] 0.6 x10 Low 1.3-2.9 [facility] Comment on above: Performed By: #### 1 [id number], [id number], [id number] #### [facility] (DEFAULT) [address] [place] [address] Lymphocytes/100 WBC (Bld) 6 % Low 14-48 [facility] Comment on above: Performed By: #### 1 [id number], [id number], [id number] #### [facility] (DEFAULT) [address] [place] [address] Brown Abs# 1.0 x10 High 0.0-0.8 [facility] Comment on above: Performed By: #### 1 [id number], [id number], [id number] #### [facility] (DEFAULT) [address] [place] [address] Neut Abs# 7.2 x10 Normal 1.5-9.2 [facility] Comment on above: Performed By: #### 1 [id number], [id number], [id number] #### [facility] (DEFAULT) [address] [place] [address] Neutrophils/100 WBC (Bld) 80 % Normal 44-88 [facility] Comment on above: Performed By: #### 1 [id number], [id number], [id number] #### [facility] (DEFAULT) [address] [place] [address] CBC w/ Auto Diffon 0 Erythrocyte distribution width (RBC) [Ratio] 14.4 % Normal 11.5-15.0 [facility] Comment on above: Performed By: #### 1 [id number], [id number], [id number] #### [facility] (DEFAULT) [address] [place] [address] Hematocrit (Bld) [Volume fraction] 36.2 % Normal 33.7-40.4 [facility] Comment on above: Performed By: #### 1 [id number], [id number], [id number] #### [facility] (DEFAULT) [address] [place] [address] Hemoglobin (Bld) [Mass/Vol] 11.9 g/dL Normal 11.3-15.9 [facility] Comment on above: Performed By: #### 1 [id number], [id number], [id number] #### [facility] (DEFAULT) [address] [place] [address] Man Diff? Auto Normal [facility] Comment on above: Performed By: #### 1 [id number], [id number], [id number] #### [facility] (DEFAULT) [address] [place] [address]67 MCH (RBC) [Entitic mass] 33 pg Normal 24-34 [facility] Comment on above: Performed By: #### 1 [id number], [id number], 0885722 #### [facility] (DEFAULT) [address] [place] [address] 77896 MCHC (RBC) [Mass/Vol] 33 g/dL Normal 26-37 [facility] Comment on above: Performed By: #### 1 [id number], [id number], 7223413 #### [facility] (DEFAULT) [address] [place] [address]1062 MCV (RBC) [Entitic vol] 100 fL Normal 81-100 [facility] Comment on above: Performed By: #### 1 [id number], [id number], [id number] #### [facility] (DEFAULT) [address] [place] [address] 05352 Platelet mean volume (Bld) [Entitic vol] 9.6 fL Normal 6.3-10.2 [facility] Comment on above: Performed By: #### 1 [id number], [id number], [id number] #### [facility] (DEFAULT) [address] [place] [address] Platelets (Bld) [#/Vol] 286 x10 Normal 138-427 [facility] Comment on above: Performed By: #### 1 [id number], [id number], 9360325 #### [facility] (DEFAULT) [address] [place] [address] 44150 RBC (Bld) [#/Vol] 3.61 x10 Low 3.70-5.30 [facility] Comment on above: Performed By: #### 1 [id number], [id number], [id number] #### [facility] (DEFAULT) [address] [place] [address] 477[address] WBC (Bld) [#/Vol] 9.0 x10 [facility] Comment on above: Performed By: #### 1 [id number], [id number], [id number] #### [facility] (DEFAULT) [address] [place] [address] Education Noteon 2019 Education Note Education Materials [...] done to rule of a DVT. Normal [facility] Extra Greenon 2019 Tube Collected Yes [facility] Comment on above: Performed By: #### 1 [id number], [id number], [id number] #### [facility] (DEFAULT) [address] [place] [address] Inpatient Patient Summaryon 2019 Inpatient Patient Summary [address] [address] Patient Discharge Instructions Name: DELICIA HSU : 1935 Patient Address: [address] [place] [address] Primary Care Provider: Name: Gypsy Mcmahon MD After you are discharged if you find you have any questions, please, call [phone] ext [phone] to speak to a nurse. Discharge Diagnosis: Primary localized osteoarthritis of left hip Prescription Information: If you have been given a prescription for narcotics, seek immediate medical attention if you have any difficulty breathing or any sudden status changes such as confusion and sleepiness. If you or anyone you know is experiencing suicidal thoughts, mental health, alcohol and/or drug addiction problems; contact the [facility] 31/08 Crisis Hotline -Text 4HOPE to 295915. If you received any narcotics, sedation, or [...] business decisions or sign any legal documents [facility] would like to thank you for allowing us to assist you with your healthcare needs. The following includes patient education materials and information regarding your injury/illness. DELICIA HSU has been given the following list of follow-up instructions, prescriptions, and patient education materials: Follow-up Instructions With: Address: When: Mi Licea [address] [facility] [address] [place] [address] Business (2) 10/03/2019 8:30 AM With: Address: When: Gypsy Mcmahon [address] [place] [address] [place] [address] Business (1) Medications During the [...] for Disease Control and Prevention October 2013 [facility] Progress Note - Nurseon 09-09 [facility] [Entitic mass] Pt. transferred to bed [...] on: 2019 11:52 EDT] Pan Regalado RN [facility] Progress Note - Nurse Pt. reports intermittent left upper inner thigh grabbing pain. Pt. moans during these episodes. Tramadol given. Pt. repostioned for comfort. No change in the muscle spasms. Dr. Chacko informed in person. No orders received. [Electronically Signed on: 2019 09:32 EDT] Pan Regalado RN [Verified on: 2019 09:32 EDT] Pan Regalado RN [facility] Progress Note-Physicianon Progress Note-Physician DATE OF [...] PROGNOSIS: Good. Devorah Redd DO JOB #: [id number] [Electronically Signed on: 2019 13:04 EDT] DEVORAH REDD DO [Verified on: 2019 13:04 EDT] DEVORAH REDD DO [Transcribed on: 2019 11:05 EDT] U Normal [facility] .Auto Diff 1on 09-27-2019 Auto Brown % 9 % Normal 1-12 [facility] Comment on above: Performed By: #### 1 [id number], [id number], [id number] #### [facility] (DEFAULT) [address] [place] [address] Baso Abs# 0.0 x10 Normal 0.0-0.2 [facility] Comment on above: Performed By: #### 1 [id number], [id number], [id number] #### [facility] (DEFAULT) [address] [place] [address] Basophils/100 WBC (Bld) 0.1 % Low 0.2-2.0 [facility] Comment on above: Performed By: #### 1 [id number], [id number], [id number] #### [facility] (DEFAULT) [address] [place] [address] Eos Abs# 0.2 x10 Normal 0.0-0.4 [facility] Comment on above: Performed By: #### 1 [id number], [id number], 2454818 #### [facility] (DEFAULT) [address] [place] [address] Eosinophils/100 WBC (Bld) 1.6 % Normal 0.9-4.0 [facility] Comment on above: Performed By: #### 1 [id number], [id number], 3415984 #### [facility] (DEFAULT) [address] [place] [address] Lymphocytes (Bld) [#/Vol] 0.5 x10 Low 1.3-2.9 [facility] Comment on above: Performed By: #### 1 [id number], [id number], 3056978 #### [facility] (DEFAULT) [address] [place] [address] Lymphocytes/100 WBC (Bld) 4 % Low 14-48 [facility] Comment on above: Performed By: #### 1 [id number], [id number], 3695307 #### [facility] (DEFAULT) [address] [place] [address] Brown Abs# 1.2 x10 High 0.0-0.8 [facility] Comment on above: Performed By: #### 1 [id number], [id number], [id number] #### [facility] (DEFAULT) [address] [place] [address] Neut Abs# 11.5 x10 High 1.5-9.2 [facility] Comment on above: Performed By: #### 1 [id number], [id number], [id number] #### [facility] (DEFAULT) [address] [place] [address] Neutrophils/100 WBC (Bld) 86 % Normal 44-88 [facility] Comment on above: Performed By: #### 1 [id number], [id number], 2792495 #### [facility] (DEFAULT) [address] [place] [address] C Urineon 09-27-2019 C Urine Urine Culture ordere d as a result of parameters set on specific urine dip and urine microsopic results. >100,000 cfu/ml Escherichia coli ORGANISM EC -- SUSCEPTIBILITY - ORGANISM ID: 1 ANTIBIOTIC INTERPRETATION JODY STATUS [...] <=4 Verified Tri/Sulf S <=2/38 Verified Normal [facility] Comment on above: Performed By: #### 7 [id number], [id number], [id number] #### [facility] (DEFAULT) [address] [place] [address] CBC w/ Auto Diffon 0 Erythrocyte distribution width (RBC) [Ratio] 14.5 % Normal 11.5-15.0 [facility] Comment on above: Performed By: #### 1 [id number], [id number], 2567601 #### [facility] (DEFAULT) [address] [place] [address] Hematocrit (Bld) [Volume fraction] 39.2 % Normal 33.7-40.4 [facility] Comment on above: Performed By: #### 1 [id number], [id number], 1335546 #### [facility] (DEFAULT) [address] [place] [address] Hemoglobin (Bld) [Mass/Vol] 12.8 g/dL Normal 11.3-15.9 [facility] Comment on above: Performed By: #### 1 [id number], [id number], 1122735 #### [facility] (DEFAULT) [address] [place] [address] Man Diff? Auto Normal [facility] Comment on above: Performed By: #### 1 [id number], [id number], 0369446 #### [facility] (DEFAULT) [address] [place] [address] MCH (RBC) [Entitic mass] 33 pg Normal 24-34 [facility] Comment on above: Performed By: #### 1 [id number], 86349309, [id number] #### [facility] (DEFAULT) [address] [place] [address]58 MCHC (RBC) [Mass/Vol] 33 g/dL Normal 26-37 [facility] Comment on above: Performed By: #### 1 [id number], [id number], 3906453 #### [facility] (DEFAULT) [address] [place] [address] 89899 MCV (RBC) [Entitic vol] 101 fL High 81-100 [facility] Comment on above: Performed By: #### 1 [id number], 50939423, 9713269 #### [facility] (DEFAULT) [address] [place] [address] Platelet mean volume (Bld) [Entitic vol] 9.8 fL Normal 6.3-10.2 [facility] Comment on above: Performed By: #### 1 [id number], [id number], 3487928 #### [facility] (DEFAULT) [address] [place] [address]56 Platelets (Bld) [#/Vol] 266 x10 Normal 138-427 [facility] Comment on above: Performed By: #### 1 [id number], 24340376, 0576123 #### [facility] (DEFAULT) [address] [place] [address] 88188 RBC (Bld) [#/Vol] 3.89 x10 Normal 3.70-5.30 [facility] Comment on above: Performed By: #### 1 [id number], [id number], [id number] #### [facility] (DEFAULT) [address] [place] [address] 17365 WBC (Bld) [#/Vol] 13.4 x10 [facility] Comment on above: Result Comment: Slid e Reviewed Performed By: #### 1 [id number], [id number], [id number] #### [facility] (DEFAULT) [address] [place] [address] Coding Summaryon 08-19-2020 Coding Summary CODING DATE: 020 [facility] STATUS: Home PAYOR: Medicare ADMIT [...] Marisela Lawrence Date Saved: 09/27/2019 11:11 am [facility] Extra Greenon 09-27-2019 Tube Collected Yes [facility] Comment on above: Performed By: #### 1 [id number], [id number], [id number] #### [facility] (DEFAULT) [address] [place] [address] Nutrition Noteon 09-27-2019 Nutrition Note Pt eating poorly, av g less than 30% of meals per intake records. Supplements also taken sporadically. Suspect pain and constipation may be playing a role. No new wts. Last BM 09/23. Possible discharge later today. Will continue to follow and monitor need to adjust supplements ie. offer to make into a milkshake, [facility] Pharmacy Noteon 09-27-2019 Pharmacy Note I [...] __ [Electronically Signed on: 09/27/2019 14:01 EDT] Santos, Virgie [Verified on: 09/27/2019 14:01 EDT] Virgie Santos [facility] Progress Note - Nurseon 08- Progress Note - Nurse 1800 one dulcolax suppository administered, will continue to monitor. [Electronically Signed on: 09/27/2019 18:03 EDT] Luli Mclain RN [Verified on: 09/27/2019 18:03 EDT] Luli Mclain RN [facility] Progress Note - Nurse 1710 tramadol 50mg po administered for #10 left upper thigh pain , will continue to monitor. [Electronically Signed on: 09/27/2019 17:09 EDT] Luli Mclain RN [Verified on: 09/27/2019 17:09 EDT] Luli Mclain RN [facility] Progress Note-Physicianon Progress Note-Physician DATE OF [...] PROGNOSIS: Good. Devorah Redd DO JOB #: [id number] bk [Electronically Signed on: 2019 10:28 EDT] DEVORAH REDD DO [Verified on: 2019 10:28 EDT] DEVORAH REDD DO [Transcribed on: 09/27/2019 13:52 EDT] U Normal [facility] .Auto Diff 1on 09-26-2019 Auto Brown % 9 % Normal 12 [facility] Comment on above: Performed By: #### 1 [id number], [id number], [id number] #### [facility] (DEFAULT) [address] [place] [address] Baso Abs# 0.0 x10 Normal 0.0-0.2 [facility] Comment on above: Performed By: #### 1 [id number], [id number], [id number] #### [facility] (DEFAULT) [address] [place] [address]651 Basophils/100 WBC (Bld) 0.1 % Low 0.2-2.0 [facility] Comment on above: Performed By: #### 1 [id number], [id number], 2796615 #### [facility] (DEFAULT) [address] [place] [address]99 Eos Abs# 0.2 x10 Normal 0.0-0.4 [facility] Comment on above: Performed By: #### 1 [id number], [id number], 3285059 #### [facility] (DEFAULT) [address] [place] [address]08 Eosinophils/100 WBC (Bld) 2.0 % Normal 0.9-4.0 [facility] Comment on above: Performed By: #### 1 [id number], [id number], 9471053 #### [facility] (DEFAULT) [address] [place] [address] Lymphocytes (Bld) [#/Vol] 0.6 x10 Low 1.3-2.9 [facility] Comment on above: Performed By: #### 1 [id number], [id number], 1607586 #### [facility] (DEFAULT) [address] [place] [address]3577 Lymphocytes/100 WBC (Bld) 6 % Low 14-48 [facility] Comment on above: Performed By: #### 1 [id number], [id number], 7637821 #### [facility] (DEFAULT) [address] [place] [address] 16557 Brown Abs# 0.9 x10 High 0.0-0.8 [facility] Comment on above: Performed By: #### 1 [id number], [id number], 1958215 #### [facility] (DEFAULT) [address] [place] [address] 43609 Neut Abs# 8.3 x10 Normal 1.5-9.2 [facility] Comment on above: Performed By: #### 1 [id number], [id number], [id number] #### [facility] (DEFAULT) [address] [place] [address] 18102 Neutrophils/100 WBC (Bld) 83 % Normal 44-88 [facility] Comment on above: Performed By: #### 1 [id number], [id number], [id number] #### [facility] (DEFAULT) [address] [place] [address] 88016 [facility] Standardon 09-26-2019 eGFR Non AA 48 mL/min/1.73m2 [facility] Comment on above: Performed By: #### 1 [id number], [id number], [id number] #### [facility] (DEFAULT) [address] [place] [address] 76291 eGFR AA 58 mL/min/1.73m2 [facility] Comment on above: Result Comment: Real Time Analyst kody Kidney disease could be indicated at eGFRs of less than 60 ml/min/1.73m2. Kidney Failure is indicated at less than 15 ml/min/1.73m2 Performed By: #### 1 [id number], [id number], [id number] #### [facility] (DEFAULT) [address] [place] [address] 07163 Anion gap [Moles/Vol] 10.0 mmol/L Normal 5.0-19.0 [facility] Comment on above: Performed By: #### 1 [id number], [id number], [id number] #### [facility] (DEFAULT) [address] [place] [address] 99929 Calcium [Mass/Vol] 8.8 mg/dL Low 8.9-10.3 [facility] Comment on above: Performed By: #### 1 [id number], [id number], [id number] #### [facility] (DEFAULT) [address] [place] [address] 14963 Chloride [Moles/Vol] 103 mmol/L Normal 101-111 [facility] Comment on above: Performed By: #### 1 [id number], [id number], [id number] #### [facility] (DEFAULT) [address] [place] [address] 77817 CO2 [Moles/Vol] 28 mmol/L Normal 21-32 [facility] Comment on above: Performed By: #### 1 [id number], 81065097, [id number] #### [facility] (DEFAULT) [address] [place] [address] 84663 Creatinine [Mass/Vol] 1.09 mg/dL Normal 0.60-1.30 [facility] Comment on above: Performed By: #### 1 [id number], [id number], [id number] #### [facility] (DEFAULT) [address] [place] [address] 70561 Glucose [Mass/Vol] 94.0 mg/dL Normal 74.0-118.0 [facility] Comment on above: Performed By: #### 1 [id number], [id number], [id number] #### [facility] (DEFAULT) [address] [place] [address] 68526 Osmolality [Osmolality] 276 mOsm/L [facility] Comment on above: Performed By: #### 1 [id number], [id number], [id number] #### [facility] (DEFAULT) [address] [place] [address] 48049 Potassium [Moles/Vol] 4.4 mmol/L Normal 3.6-5.1 [facility] Comment on above: Performed By: #### 1 [id number], 19343934, [id number] #### [facility] (DEFAULT) [address] [place] [address] 85552 Sodium [Moles/Vol] 137.0 mmol/L Normal 136.0-144 . 0 [facility] Comment on above: Performed By: #### 1 [id number], 57974055, [id number] #### [facility] (DEFAULT) [address] [place] [address] 20383 Urea nitrogen [Mass/Vol] 19 mg/dL Normal 8-26 [facility] Comment on above: Performed By: #### 1 [id number], 51493738, 4494083 #### [facility] (DEFAULT) [address] [place] [address] 50032 Urea nitrogen/Creatinine [Mass ratio] 17.0 mg/mg High 4.6-16.2 [facility] Comment on above: Performed By: #### 1 [id number], 07698028, 8394504 #### [facility] (DEFAULT) [address] [place] [address] CBC w/ Auto Diffon 0 Erythrocyte distribution width (RBC) [Ratio] 14.4 % Normal 11.5-15.0 [facility] Comment on above: Performed By: #### 1 [id number], 33597151, 7176018 #### [facility] (DEFAULT) [address] [place] [address] Hematocrit (Bld) [Volume fraction] 35.5 % Normal 33.7-40.4 [facility] Comment on above: Performed By: #### 1 [id number], 20081373, 1684801 #### [facility] (DEFAULT) [address] [place] [address] Hemoglobin (Bld) [Mass/Vol] 11.6 g/dL Normal 11.3-15.9 [facility] Comment on above: Performed By: #### 1 [id number], 09557338, 3584141 #### [facility] (DEFAULT) [address] [place] [address] Man Diff? Auto Normal [facility] Comment on above: Performed By: #### 1 [id number], [id number], 0557600 #### [facility] (DEFAULT) [address] [place] [address] MCH (RBC) [Entitic mass] 33 pg Normal 24-34 [facility] Comment on above: Performed By: #### 1 [id number], 02863481, 2657769 #### [facility] (DEFAULT) [address] [place] [address] 70646 MCHC (RBC) [Mass/Vol] 33 g/dL Normal 26-37 [facility] Comment on above: Performed By: #### 1 [id number], 85897048, [id number] #### [facility] (DEFAULT) [address] [place] [address] MCV (RBC) [Entitic vol] 102 fL High 81-100 [facility] Comment on above: Performed By: #### 1 [id number], 56032212, 4631035 #### [facility] (DEFAULT) [address] [place] [address] 56596 Platelet mean volume (Bld) [Entitic vol] 9.8 fL Normal 6.3-10.2 [facility] Comment on above: Performed By: #### 1 [id number], 90143385, 2012872 #### [facility] (DEFAULT) [address] [place] [address] 47252 Platelets (Bld) [#/Vol] 236 x10 Normal 138-427 [facility] Comment on above: Performed By: #### 1 [id number], 86399331, 2689321 #### [facility] (DEFAULT) [address] [place] [address] 36138 RBC (Bld) [#/Vol] 3.49 x10 Low 3.70-5.30 [facility] Comment on above: Performed By: #### 1 [id number], 85849834, 9815884 #### [facility] (DEFAULT) [address] [place] [address] 67967 WBC (Bld) [#/Vol] 10.0 x10 [facility] Comment on above: Performed By: #### 1 [id number], [id number], [id number] #### [facility] (DEFAULT) [address] [place] [address] Consent Formson 09-26-2019 Consent Forms [id number]#1.00O TGTIFF Normal [facility] Consultation/Specialist Note on 09-26-2019 Consultation/Specialis [...] [Verified on: 09/26/2019 07:35 EDT] SUDHEER PIKE [facility] Progress Note - Nurseon 08- Progress [...] 09/26/2019 07:45 EDT] Twila Cruz RN Normal [facility] .Auto Diff 1on 09-25-2019 Auto Brown % 8 % Normal 1-12 [facility] Comment on above: Performed By: #### 1 [id number], 02893874, [id number] #### [facility] (DEFAULT) [address] [place] [address] Baso Abs# 0.0 x10 Normal 0.0-0.2 [facility] Comment on above: Performed By: #### 1 [id number], 80929367, [id number] #### [facility] (DEFAULT) [address] [place] [address] 55657 Basophils/100 WBC (Bld) 0.2 % Normal 0.2-2.0 [facility] Comment on above: Performed By: #### 1 [id number], 38261339, 2080674 #### [facility] (DEFAULT) [address] [place] [address] 41338 Eos Abs# 0.1 x10 Normal 0.0-0.4 [facility] Comment on above: Performed By: #### 1 [id number], 21527868, 0641401 #### [facility] (DEFAULT) [address] [place] [address] Eosinophils/100 WBC (Bld) 0.5 % Low 0.9-4.0 [facility] Comment on above: Performed By: #### 1 [id number], 76013638, 0174024 #### [facility] (DEFAULT) [address] [place] [address] 26018 Lymphocytes (Bld) [#/Vol] 1.1 x10 Low 1.3-2.9 [facility] Comment on above: Performed By: #### 1 [id number], 20179758, 0530530 #### [facility] (DEFAULT) [address] [place] [address] 91763 Lymphocytes/100 WBC (Bld) 9 % Low 14-48 [facility] Comment on above: Performed By: #### 1 [id number], 81477250, 9800071 #### [facility] (DEFAULT) [address] [place] [address] 26836 Brown Abs# 1.0 x10 High 0.0-0.8 [facility] Comment on above: Performed By: #### 1 [id number], 07099417, 5344224 #### [facility] (DEFAULT) [address] [place] [address] 55247 Neut Abs# 9.6 x10 High 1.5-9.2 [facility] Comment on above: Performed By: #### 1 [id number], 04808625, 5335875 #### [facility] (DEFAULT) [address] [place] [address] 40432 Neutrophils/100 WBC (Bld) 82 % Normal 44-88 [facility] Comment on above: Performed By: #### 1 [id number], 07687666, 7332374 #### [facility] (DEFAULT) [address] [place] [address] ABORhon 09-25-2019 ABO and Rh group Nom (Bld) Hx Check: Not Found Anti-A: 4+ Anti-B: 0 Anti-D: 4+ DCon: NT A1: 0 B: 4+ ABORh Interp: A POS [facility] Comment on above: Performed By: #### 7 [id number], 10149826, [id number] #### [facility] (DEFAULT) [address] [place] [address] ABORh Retypeon 09-25-2019 ABO and Rh group Nom (Bld) Ordered by Discern. Anti-A: 4+ Anti-B: 0 Anti-D: 4+ DCon: NT A1: 0 B: 4+ ABORh Retype: A POS [facility] Comment on above: Performed By: #### 7 [id number], 34582754, [id number] #### [facility] (DEFAULT) [address] [place] [address] 57093 ABSC Gelon 09-25-2019 ABSC Gel Negative Normal [facility] Comment on above: Performed By: #### 7 [id number], 54233948, [id number] #### [facility] (DEFAULT) [address] [place] [address] 50089 Anesthesia Noteon 09-25-2019 Anesthesia Note Patient: DONTAE [...] risk of pressure sore / SNOMED CT 629021687 / Confirmed CAD (coronary artery disease) / SNOMED CT 89643348 / Confirmed Hyperlipidemia / SNOMED CT 25139142 / Confirmed Hypertension / SNOMED CT 3769217828 / Confirmed Skin cancer / SNOMED CT 8586075390 / Confirmed Osteoporosis / SNOMED CT 105817193 / Confirmed Restless leg syndrome / SNOMED CT 39684714 / Confirmed Resolved: GERD (gastroesophageal reflux disease) / SNOMED CT 167408519 Histories Family History: Cancer Sister Brother Aneurysm Mother CHF - Congestive heart failure Father NE (myocardial infarction) Sister Procedure history: Umbilical hernia (0561805355). Arthroscopy (95794601). Comments: 08/29/2019 12:57 Dionne Mccarty RN arthroscopy of knee Cholecystectomy (03168118). Hysterectomy (445131453). Cataract (881498786). Shoulder (24298253). Comments: 08/29/2019 12:58 Dionne Mccarty RN arthroscopy CABG (Coronary artery bypass grafting) planned (270347155). Colonoscopy (181591341). EGD - Esophagogastroduodenosc opy (0913353572). Meniscectomy (568997579). Hip arthroplasty (712462719). Social History Electronic Cigarette/Vaping Assessment Electronic Cigarette [...] axis dev, LAFB, RV conduction delay. Plan [place] [employer]hesi[employer]#(ASA) physical status classification: Class III. Anesthetic Preoperative Plan Anesthesia: Regional Spinal. Anesthetic plan, risks, benefits, and alternatives discussed with the patient and/or family. Patient verbalized understanding. Informed consent was given. Consent was signed by the patient. [Electronically Signed on: 09/25/2019 10:10 EDT] Enrike Mora MD [Verified on: 09/25/2019 10:10 EDT] Enrike Mora MD Normal [facility] Blood Bank IDon 09-25-2019 Blood Bank ID BBID: [id number] [facility] Comment on above: Performed By: #### 7 [id number], 51298876, [id number] #### [facility] (DEFAULT) [address] [place] [address] CBC w/ Auto Diffon 0 Erythrocyte distribution width (RBC) [Ratio] 14.4 % Normal 11.5-15.0 [facility] Comment on above: Performed By: #### 1 [id number], 08051268, 5255491 #### [facility] (DEFAULT) [address] [place] [address] Hematocrit (Bld) [Volume fraction] 39.2 % Normal 33.7-40.4 [facility] Comment on above: Performed By: #### 1 [id number], 04709921, 1723653 #### [facility] (DEFAULT) [address] [place] [address] Hemoglobin (Bld) [Mass/Vol] 12.8 g/dL Normal 11.3-15.9 [facility] Comment on above: Performed By: #### 1 [id number], 76233817, 1992792 #### [facility] (DEFAULT) [address] [place] [address] Man Diff? Auto Normal [facility] Comment on above: Performed By: #### 1 [id number], 89133180, 1902864 #### [facility] (DEFAULT) [address] [place] [address] MCH (RBC) [Entitic mass] 33 pg Normal 24-34 [facility] Comment on above: Performed By: #### 1 [id number], 40484717, 4387474 #### [facility] (DEFAULT) [address] [place] [address] MCHC (RBC) [Mass/Vol] 33 g/dL Normal 26-37 [facility] Comment on above: Performed By: #### 1 [id number], 13748781, 6754879 #### [facility] (DEFAULT) [address] [place] [address] MCV (RBC) [Entitic vol] 102 fL High 81-100 [facility] Comment on above: Performed By: #### 1 [id number], 03432074, 0809291 #### [facility] (DEFAULT) [address] [place] [address] Platelet mean volume (Bld) [Entitic vol] 9.4 fL Normal 6.3-10.2 [facility] Comment on above: Performed By: #### 1 [id number], 47742793, 7462188 #### [facility] (DEFAULT) [address] [place] [address] Platelets (Bld) [#/Vol] 272 x10 Normal 138-427 [facility] Comment on above: Performed By: #### 1 [id number], 73020141, 1234341 #### [facility] (DEFAULT) [address] [place] [address] RBC (Bld) [#/Vol] 3.85 x10 Normal 3.70-5.30 [facility] Comment on above: Performed By: #### 1 [id number], 73681224, 1608970 #### [facility] (DEFAULT) [address] [place] [address] WBC (Bld) [#/Vol] 11.7 x10 High 3.5-10.5 [facility] Comment on above: Performed By: #### 1 [id number], 31604986, 2625154 #### [facility] (DEFAULT) [address] [place] [address] Extra [place] 09-25-2019 Tube Collected Yes [facility] Comment on above: Performed By: #### 7 [id number], 13732857, [id number] #### [facility] (DEFAULT) [address] [place] [address] H&Hon 09-25-2019 Hematocrit (Bld) [Volume fraction] 39.9 % Normal 33.7-40.4 [facility] Comment on above: Performed By: #### 7 398162, 30916000, [id number] #### [facility] (DEFAULT) [address] [place] [address] Hemoglobin (Bld) [Mass/Vol] 12.7 g/dL Normal 11.3-15.9 [facility] Comment on above: Performed By: #### 7 113903, 50435422, [id number] #### [facility] (DEFAULT) [address] [place] [address] History and Physicalon 09-24 History and Physical [id number]#1.00O TGTIFF Normal [facility] MAGR Intraoperative Recordon 09-25-2019 MAGR Intraoperative Record MAGR Intra-Op Record Summary Primary Physician: Mi Licea DO Finalized Date/Time: 09/25/19 15:04:11 Pt. Name: DELICIA HSU Jean Carlos Cha/Sex: 1935 FEMALE Med Rec #: [id number] Physician: Mi Licea DO Financial #: [id number] Pt. Type: I Room/Bed: [facility] Admit/Disch: 09/25/19 06:52:00 - Institution: Case Times [...] Role Performed Surgeon - Primary Anesthesiologist of Rigger Third Record Time In 09/25/19 09:37:00 09/25/19 09:37:00 09/25/19 09:37:00 Time Out 09/25/19 11:50:00 09/25/19 11:50:00 09/25/19 11:50:00 Procedure Arthroplasty Total Arthroplasty Total Arthroplasty Total Hip(Left) Hip(Left) Hip(Left) Last Modified By: Marj Sullivan RN, Stephanie RN Sauer, Stephanie RN 09/25/19 12:54:58 09/25/19 12:54:58 09/25/19 12:54:58 Entry 4 Entry 5 Entry 6 Case Attendee Montrell MCKEON, Shantal Moreira Leigh-Ann CST Role Performed Scrub Personnel Potato Chip Sorter Potato Chip Sorter Time In 09/25/19 09:37:00 09/25/19 09:37:00 09/25/19 [...] Count Final Count Status Correct Final Counts Montrell MCKEON, Ange, Performed By Marj Sullivan RN Final Count [...] Entry 1 Device Description TRAY URINE METER BECKMAN Location Bladder Balloon Inflation 10 ML Present [...] Mi Licea James Huddleston, James By: Eduardo DO Eduardo DO Eduardo DO Size 32MM 50MM 6.5 X 30MM 6.5 X 15MM Physician Neonatology DEPUY DEPUY DEPUY Catalog # Lot Number [id number] Expiration Date 05/08/24 03/10/29 01/07/29 Serial Number [id number] REF 1217-30-500 REF 1217-15-500 Device Identifier Human Readable EDDA Machine Readable EDDA MR Class Implant Usage Data Site Hip L Hip L Hip L Quantity 1 1 1 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 Explant 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 External Indicator Result Internal Indicator Results Outcome Met (O.30) Yes Yes Yes Last Modified By: Marj Sullivan RN, Stephanie RN Sauer, Stephanie RN 09/25/19 13:14:13 09/25/19 13:11:26 09/25/19 13:11:26 Entry 4 Entry 5 Entry 6 Procedure Arthroplasty Total Arthroplasty Total Arthroplasty Total Hip(Left) Hip(Left) Hip(Left) Implant Action Implant Implant Implant Description [employer] CANCELLOUS BONE Happy KidzUY ACETABULAR SHELL DEPUY APEX HOLE SCREW ELIMINATOR Implant Information Implant/Explant 09/25/19 10:50:00 09/25/19 10:50:00 09/25/19 10:50:00 Date/Time Implanted/Explanted Mi Licea, Mi Senior By: Eduardo Vallejo DO Eduardo BOYD Size 6.5 X 15MM 50MM PS Physician Neonatology DEPUY DEPUY DEPUY Catalog # Lot Number [id number] Expiration Date 11/07/28 04/07/29 04/07/29 Serial Number REF 1217-15-500 REF [id number] REF 1246-03-000 Device Identifier Human Readable EDDA Machine Readable EDDA MR Class Implant Usage Data Site Hip L Hip L Hip L Quantity 1 1 1 Reason 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 Explant 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 External Indicator Result Internal Indicator Results [...] 10:50:00 09/25/19 10:50:00 Date/Time Implanted/Explanted Mi Licea Mi Licea By: Eduardo Vallejo DO Size 135 SHORT NECK COLLAR 01/21 TAPER SIZE 11 Physician Neonatology DEPUY DEPUY Catalog # Lot Number [id number] Expiration Date 02/08/24 02/08/24 Serial Number REF [id number] REF 1365-22-000 Device Identifier Human Readable EDDA Machine Readable EDDA MR Class Implant Usage Data Site Hip L Hip L Quantity 1 1 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 Name: DELICIA HSU/Sex: 1935 FEMALE Med Rec #: [id number] Physician: Mi Licea DO Financial #: [id number] Pt. Type: I Room/Bed: 221/1 Admit/Disch: 09/25/19 06:52:00 - Institution: PACU Case Times MAGR Entry 1 In PACU I 09/25/19 11:50:00 Discharge from PACU 09/25/19 12:40:00 I Last Modified By: Dionne Yun RN 09/25/19 12:53:35 Finalized By: Dionne Yun RN Document Signatures Signed By: Dionne Yun RN 09/25/19 [facility] 09-25-2019 MAGR Preoperative Record MAGR Pre-Op Record Summary Primary Physician: Mi Licea DO Finalized Date/Time: 09/25/19 11:58:52 Pt. Name: DELICIA HSU/Sex: 1935 FEMALE Med Rec #: [id number] Physician: Mi Licea DO Financial #: [id number] Pt. Type: I Room/Bed: 221/1 Admit/Disch: 09/25/19 [...] Signed By: Dionne Yun RN 09/25/19 11:58 [facility] Nutrition Noteon 09-25-2019 Nutrition Note Pt admitted for scheduled Lt total hip sx; placed on a Regular diet as tolerated w/ post op supplements BID along w/ usual vitamin/mineral supplementation. Nutritional supplements adjusted to what's available in house. Per multi needle machine operator assessment, Pt reports wt loss of 2-13lb, however, exact amt, time frame and etiology unknown at this time. No wt hx available for past 2-3yrs. Full nutrition assessment completed d/t high risk r/t surgery greater than 65y (Pt is 83y). Will monitor wts, intake and labs. Pts last BM noted as 8/15 and takes metamucil daily at home. Will monitor need for additional fiber/issues w/ constipation. [facility] to offer prunes/prune alfred q am. [facility] Operative Report - Surgeon/P hung 09-25-2019 [...] on: 10/18/2019 21:39 EDT] Mi Licea DO [facility] Pharmacy Noteon 09-25-2019 Pharmacy Note I [...] [Verified on: 09/25/2019 13:26 EDT] Virgie Santos [facility] Pharmacy Note I have personally reviewed [...] Comments: [Electronically Signed on: 09/25/2019 13:04 EDT] MedhatMarj hodge [Verified on: 09/25/2019 13:04 EDT] StefanyStevenie [facility] Progress Note - Nurseon 08- TSH [...] on: 09/25/2019 19:48 EDT] Indy Vidal RN [facility] Progress Note - 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 Performed By: #### 7 [id number], [id number], [id number] #### [facility] (DEFAULT) [address] [place] [address] 07539 UA Bacteria 4+ [facility] Comment on above: Order Comment: Urina lysis Microscopic order added on by Discern Expert Rules system. Performed By: #### 7 [id number], [id number], [id number] #### [facility] (DEFAULT) [address] [place] [address] 74376 UA Squam Epi Rare [facility] Comment on above: Order Comment: Urina lysis Microscopic order added on by [employer] Expert Rules system. Performed By: #### 7 [id number], [id number], [id number] #### [facility] (DEFAULT) [address] [place] [address] 27708 UA WBC 0-2 [facility] Comment on above: Order Comment: Urina lysis Microscopic order added on by [employer] Expert Rules system. Performed By: #### 7 [id number], [id number], [id number] #### [facility] (DEFAULT) [address] [place] [address] 10969 UA w Culture if Ind Standard on 09-25-2019 Breakpoint UA [facility] Comment on above: Order Comment: beckman insert Performed By: #### 7 [id number], [id number], [id number] #### [facility] (DEFAULT) [address] [place] [address] Color (U) Yellow Normal [facility] Comment on above: Order Comment: beckman insert Performed By: #### 7 [id number], [id number], [id number] #### [facility] (DEFAULT) [address] [place] [address] 34959 Culture? Indicated [facility] Comment on above: Order Comment: beckman insert Performed By: #### 7 [id number], [id number], [id number] #### [facility] (DEFAULT) [address] [place] [address] 39063 Glucose (U) [Mass/Vol] Negative [facility] Comment on above: Order Comment: beckman insert Performed By: #### 7 [id number], [id number], [id number] #### [facility] (DEFAULT) [address] [place] [address] 60686 Ketones Ql (U) Negative Normal [facility] Comment on above: Order Comment: beckman insert Performed By: #### 7 [id number], [id number], [id number] #### [facility] (DEFAULT) [address] [place] [address] 78598 Micro? Indicated [facility] Comment on above: Order Comment: beckman insert Performed By: #### 7 [id number], [id number], [id number] #### [facility] (DEFAULT) [address] [place], [place] [id number] UA Bilirubin Negative Normal [facility] Comment on above: Order Comment: beckman insert Performed By: #### 7 [id number], [id number], [id number] #### [facility] (DEFAULT) [address] [place] [address] 13563 UA Blood Negative Normal [facility] Comment on above: Order Comment: beckman insert Performed By: #### 7 [id number], [id number], [id number] #### [facility] (DEFAULT) [address] [place] [address] 86407 UA Clarity CLEAR Normal CLEAR [facility] Comment on above: Order Comment: beckman insert Performed By: #### 7 [id number], [id number], [id number] #### [facility] (DEFAULT) [address] [place] [address] 61165 UA Leuk Est SMALL Abnormal NEGATIVE [facility] Comment on above: Order Comment: beckman insert Performed By: #### 7 645385, [id number], [id number] #### [facility] (DEFAULT) [address] [place] [address] 51168 UA Nitrite Positive Abnormal NEGATIVE [facility] Comment on above: Order Comment: beckman insert Performed By: #### 7 254977, [id number], [id number] #### [facility] (DEFAULT) [address] [place] [address] 73037 UA pH 7.0 Normal 5-8 [facility] Comment on above: Order Comment: beckman insert Performed By: #### 7 074082, [id number], [id number] #### [facility] (DEFAULT) [address] [place] [address] 19087 UA Protein Negative Normal NEGATIVE [facility] Comment on above: Order Comment: beckman insert Performed By: #### 7 026370, [id number], [id number] #### [facility] (DEFAULT) [address] [place] [address] 37405 UA Spec Grav 1.020 Normal 1.001-1.[address] [place] [address] Comment on above: Order Comment: beckman insert Performed By: #### 7 824385, [id number], [id number] #### [facility] (DEFAULT) [address] [place] [address] 69286 UA Urobilinogen 0.2 mg/dL Normal 0.2-1.0 [facility] Comment on above: Order Comment: beckman insert Performed By: #### 7 314459, [id number], [id number] #### [facility] (DEFAULT) [address] [place] [address] 47788 Urine Source Clean Catch Normal [facility] Comment on above: Order Comment: beckman insert Performed By: #### 7 850754, [id number], [id number] #### [facility] (DEFAULT) [address] [place] [address] 48922 XR Hip Complete Lefton 09-24 XR Hip [...] MD 09/25/19 3:55 pm Technologist: OCHOA NAZARIO [facility] Patient Handouton 09-24-2019 Patient Handout [facility] Progress Note - Nurseon 09-08 Progress Note - Nurse Spoke with pt rega rding arrival time of 0700 and NPO status. Verbalized understanding. [Electronically Signed on: 09/22/2019 09:47 EDT] Kimberley Holden RN [Verified on: 09/22/2019 09:47 EDT] Kimberley Holden RN Normal [facility] SARS-CoV-2 (COVID-19) PCRon 09-22-2019 COVID-19 PCR Not Detected Normal Not Detected [facility] Comment on above: Performed By: #### 7 [id number], [id number], [id number] #### [facility] (DEFAULT) [address] [place] [address] Employed in healthcare? Unknown [facility] Comment on above: Performed By: #### 7 819079, [id number], [id number] #### [facility] (DEFAULT) [address] [place] [address] Group care resident? Unknown [facility] Comment on above: Performed By: #### 7 264960, [id number], [id number] #### [facility] (DEFAULT) [address] [place] [address] 68525 Hospitalized due to COVID-19? Unknown [facility] Comment on above: Performed By: #### 7 246529, [id number], [id number] #### [facility] (DEFAULT) [address] [place] [address] 26766 In ICU? Unknown [facility] Comment on above: Performed By: #### 7 671468, [id number], [id number] #### [facility] (DEFAULT) [address] [place] [address] 98681 status? Unknown [facility] Comment on above: Performed By: #### 7 157793, [id number], [id number] #### [facility] (DEFAULT) [address] [place] [address] 49448 Symptomatic as defined by CDC? Unknown [facility] Comment on above: Performed By: #### 7 734956, [id number], [id number] #### [facility] (DEFAULT) [address] [place] [address] 76042 Coding Summaryon 09-13-2019 Coding Summary CODING DATE: 020 [facility] STATUS: Home PAYOR: Medicare APC DESCRIPTION 5733 Level 3 Minor Procedures ADMIT DX: REASON FOR VISIT DX: Z01.818 Encounter for other preprocedural examination I10 Essential (primary) hypertension I25.10 Atherosclerotic heart disease of [place] coronary artery without angina pectoris FINAL DX: PRINCIPAL: Z01.818 Encounter for other preprocedural examination SECONDARY: I10 Essential (primary) hypertension I25.10 Atherosclerotic heart disease of [place] coronary artery without angina pectoris K21.9 Gastro-esophageal [...] Marisela Lawrence Date Saved: 09/13/2019 09:18 am [facility] Coding Summaryon 09-06-2019 Coding Summary CODING DATE: 020 [facility] STATUS: Home PAYOR: Medicare APC DESCRIPTION 5733 Level 3 Minor Procedures ADMIT DX: REASON FOR VISIT DX: Z01.818 Encounter for other preprocedural examination I10 Essential (primary) hypertension I25.10 Atherosclerotic heart disease of [place] coronary artery without angina pectoris FINAL DX: PRINCIPAL: Z01.818 Encounter for other preprocedural examination SECONDARY: I10 Essential (primary) hypertension I25.10 Atherosclerotic heart disease of [place] coronary artery without angina pectoris K21.9 Gastro-esophageal reflux disease without esophagitis PYMT PROC APC STAT DESCRIPTION DOCTOR NAME DATE NOTE: The code number assigned matches the documented diagnosis and / or procedure in the patient's chart. However, the narrative phrase printed from the coding software may appear abbreviated, or result in slightly different terminology. Coded By: Marisela Lawrence Date Saved: 09/06/2019 09:20 am [facility] Progress Note - Nurseon 08-09 Progress Note - Nurse chart reviewed per Dr Akbar anesthesiologist, and cleared for surgery on 09/25/2019 [Electronically Signed on: 09/04/2019 14:30 EDT] Nimco Albarado RN [Verified on: 09/04/2019 14:30 EDT] Nimco Albarado RN [facility] Progress Note - Nurse Xin at Dr Aydin rosario notified that pt has positive urine culture. [Electronically Signed on: 09/04/2019 13:37 EDT] Dionne Yun RN [Verified on: 09/04/2019 13:37 EDT] Dionne Yun RN [facility] Provider Orderson 09-04-2019 Provider Orders [id number] TGTIFF [facility] C Urineon 09-03-2019 C Urine Urine Culture ordere d as a result of parameters set on specific urine dip and urine microsopic results. >100,000 cfu/ml Escherichia coli ORGANISM EC -- SUSCEPTIBILITY - ORGANISM ID: 1 ANTIBIOTIC INTERPRETATION JODY STATUS [...] S <=4 Verified Tri/Sulf S <=2/38 Verified [facility] Comment on above: Performed By: #### 1 [id number], [id number], [id number] #### [facility] (DEFAULT) [address] [place] [address] C MRSA Screenon 09-02-2019 C MRSA Screen Negative [facility] Comment on above: Performed By: #### 1 [id number] #### [facility] (DEFAULT) [address] [place] [address] .Auto Diff 1on 09-01-2019 Auto Brown % 10 % Normal 02-19 [facility] Comment on above: Performed By: #### 7 104925, [id number], [id number] #### [facility] (DEFAULT) [address] [place] [address] 93860 Baso Abs# 0.0 x10 Normal 0.0-0.2 [facility] Comment on above: Performed By: #### 7 528649, [id number], [id number] #### [facility] (DEFAULT) [address] [place] [address] 15918 Basophils/100 WBC (Bld) 0.3 % Normal 0.2-2.0 [facility] Comment on above: Performed By: #### 7 854177, 59974443, [id number] #### [facility] (DEFAULT) [address] [place] [address] 38576 Eos Abs# 0.1 x10 Normal 0.0-0.4 [facility] Comment on above: Performed By: #### 7 006552, [id number], [id number] #### [facility] (DEFAULT) [address] [place] [address] Eosinophils/100 WBC (Bld) 0.9 % Normal 0.9-4.0 [facility] Comment on above: Performed By: #### 7 572734, 64545879, [id number] #### [facility] (DEFAULT) [address] [place] [address] 71894 Lymphocytes (Bld) [#/Vol] 1.0 x10 Low 1.3-2.9 [facility] Comment on above: Performed By: #### 7 577806, 49994051, [id number] #### [facility] (DEFAULT) [address] [place] [address] 05299 Lymphocytes/100 WBC (Bld) 10 % Low 14-48 [facility] Comment on above: Performed By: #### 7 805483, 38483613, [id number] #### [facility] (DEFAULT) [address] [place] [address] 20558 Brown Abs# 1.0 x10 High 0.0-0.8 [facility] Comment on above: Performed By: #### 7 548939, [id number], [id number] #### [facility] (DEFAULT) [address] [place] [address] 82095 Neut Abs# 8.0 x10 Normal 1.5-9.2 [facility] Comment on above: Performed By: #### 7 411721, [id number], [id number] #### [facility] (DEFAULT) [address] [place] [address] 53652 Neutrophils/100 WBC (Bld) 79 % Normal 44-88 [facility] Comment on above: Performed By: #### 7 351352, 65818665, [id number] #### [facility] (DEFAULT) [address] [place] [address] 09810 BMP Standardon 09-01-2019 eGFR Non AA 44 mL/min/1.73m2 [facility] Comment on above: Performed By: #### 7 144659, 34155735, [id number] #### [facility] (DEFAULT) [address] [place] [address] 34502 eGFR AA 54 mL/min/1.73m2 [facility] Comment on above: Result Comment: Real Time Analyst kody Kidney disease could be indicated at eGFRs of less than 60 ml/min/1.73m2. Kidney Failure is indicated at less than 15 ml/min/1.73m2 Performed By: #### 7 670356, 48347944, [id number] #### [facility] (DEFAULT) [address] [place] [address] 08895 Anion gap [Moles/Vol] 15.0 mmol/L Normal 5.0-19.0 [facility] Comment on above: Performed By: #### 7 845915, 56048003, [id number] #### [facility] (DEFAULT) [address] [place] [address] 18657 Calcium [Mass/Vol] 9.2 mg/dL Normal 8.9-10.3 [facility] Comment on above: Performed By: #### 7 119591, 91626385, [id number] #### [facility] (DEFAULT) [address] [place] [address] 18654 Chloride [Moles/Vol] 101 mmol/L Normal 101-111 [facility] Comment on above: Performed By: #### 7 203829, 84229677, [id number] #### [facility] (DEFAULT) [address] [place] [address] 79255 CO2 [Moles/Vol] 25 mmol/L Normal 21-32 [facility] Comment on above: Performed By: #### 7 047089, 94685547, [id number] #### [facility] (DEFAULT) [address] [place] [address] 47574 Creatinine [Mass/Vol] 1.17 mg/dL Normal 0.60-1.30 [facility] Comment on above: Performed By: #### 7 856250, [id number], [id number] #### [facility] (DEFAULT) [address] [place] [address] 14476 Glucose [Mass/Vol] 94.0 mg/dL Normal 74.0-118.0 [facility] Comment on above: Performed By: #### 7 485894, 29385357, [id number] #### [facility] (DEFAULT) [address] [place] [address] 43406 Osmolality [Osmolality] 276 mOsm/L [facility] Comment on above: Performed By: #### 7 675266, 00472071, [id number] #### [facility] (DEFAULT) [address] [place] [address] 84021 Potassium [Moles/Vol] 4.0 mmol/L Normal 3.6-5.1 [facility] Comment on above: Performed By: #### 7 372191, 08628089, [id number] #### [facility] (DEFAULT) [address] [place] [address] 61843 Sodium [Moles/Vol] 137.0 mmol/L Normal 136.0-144 . 0 [facility] Comment on above: Performed By: #### 7 063449, 41147486, [id number] #### [facility] (DEFAULT) [address] [place] [address] 50749 Urea nitrogen [Mass/Vol] 20 mg/dL Normal 8-26 [facility] Comment on above: Performed By: #### 7 500151, 91481781, [id number] #### [facility] (DEFAULT) [address] [place] [address] Urea nitrogen/Creatinine [Mass ratio] 17.0 mg/mg High 4.6-16.2 [facility] Comment on above: Performed By: #### 7 672677, 44202359, [id number] #### [facility] (DEFAULT) [address] [place] [address] CBC w/ Auto Diffon 0 Erythrocyte distribution width (RBC) [Ratio] 13.9 % Normal 11.5-15.0 [facility] Comment on above: Performed By: #### 7 066524, 87225243, [id number] #### [facility] (DEFAULT) [address] [place] [address] Hematocrit (Bld) [Volume fraction] 38.5 % Normal 33.7-40.4 [facility] Comment on above: Performed By: #### 7 423724, 53513167, [id number] #### [facility] (DEFAULT) [address] [place] [address] Hemoglobin (Bld) [Mass/Vol] 12.6 g/dL Normal 11.3-15.9 [facility] Comment on above: Performed By: #### 7 799812, 91216603, [id number] #### [facility] (DEFAULT) [address] [place] [address] Man Diff? Auto Normal [facility] Comment on above: Performed By: #### 7 571844, 27478469, [id number] #### [facility] (DEFAULT) [address] [place] [address] 75559 MCH (RBC) [Entitic mass] 33 pg Normal 24-34 [facility] Comment on above: Performed By: #### 7 234719, 94367904, [id number] #### [facility] (DEFAULT) [address] [place] [address] 15725 MCHC (RBC) [Mass/Vol] 33 g/dL Normal 26-37 [facility] Comment on above: Performed By: #### 7 682024, 42931113, [id number] #### [facility] (DEFAULT) [address] [place] [address] 79930 MCV (RBC) [Entitic vol] 101 fL High 81-100 [facility] Comment on above: Performed By: #### 7 246041, 92376953, [id number] #### [facility] (DEFAULT) [address] [place] [address] 49077 Platelet mean volume (Bld) [Entitic vol] 9.5 fL Normal 6.3-10.2 [facility] Comment on above: Performed By: #### 7 148132, 62264307, [id number] #### [facility] (DEFAULT) [address] [place] [address] Platelets (Bld) [#/Vol] 292 x10 Normal 138-427 [facility] Comment on above: Performed By: #### 7 840869, 24255073, [id number] #### [facility] (DEFAULT) [address] [place] [address] 44789 RBC (Bld) [#/Vol] 3.82 x10 Normal 3.70-5.30 [facility] Comment on above: Performed By: #### 7 271127, 32764352, [id number] #### [facility] (DEFAULT) [address] [place] [address] 29480 WBC (Bld) [#/Vol] 10.1 x10 Normal 3.5-10.5 [facility] Comment on above: Performed By: #### 7 420726, 14410394, [id number] #### [facility] (DEFAULT) [address] [place] [address] UA [id number] 09-01-2019 RBC (U) [#/Vol] None Seen Normal [facility] Comment on above: Order Comment: Urina lysis Microscopic order added on by Discern Expert Rules system. Performed By: #### 1 [id number], [id number], [id number] #### [facility] (DEFAULT) [address] [place] [address] UA Amorph. 1+ Normal [facility] Comment on above: Order Comment: Urina lysis Microscopic order added on by Discern Expert Rules system. Performed By: #### 1 [id number], 38892686, [id number] #### [facility] (DEFAULT) [address] [place] [address] 06638 UA Bacteria 4+ [facility] Comment on above: Order Comment: Urina lysis Microscopic order added on by Discern Expert Rules system. Performed By: #### 1 [id number], [id number], [id number] #### [facility] (DEFAULT) [address] [place] [address] 44798 UA Squam Epi Moderate [facility] Comment on above: Order Comment: Urina lysis Microscopic order added on by Discern Expert Rules system. Performed By: #### 1 [id number], [id number], [id number] #### [facility] (DEFAULT) [address] [place] [address] 08017 UA WBC 15-20 [facility] Comment on above: Order Comment: Urina lysis Microscopic order added on by [employer] Expert Rules system. Performed By: #### 1 [id number], 77515668, [id number] #### [facility] (DEFAULT) [address] [place] [address] UA w Culture if Ind Standard on 09-01-2019 Breakpoint UA [facility] Comment on above: Performed By: #### 1 [id number], [id number], [id number] #### [facility] (DEFAULT) [address] [place] [address] 37584 Color (U) Yellow [facility] Comment on above: Performed By: #### 1 [id number], [id number], [id number] #### [facility] (DEFAULT) [address] [place] [address] 13596 Culture? Yes [facility] Comment on above: Performed By: #### 1 [id number], [id number], [id number] #### [facility] (DEFAULT) [address] [place] [address] 96679 Glucose (U) [Mass/Vol] Negative [facility] Comment on above: Performed By: #### 1 [id number], 94799441, [id number] #### [facility] (DEFAULT) [address] [place] [address] 21740 Ketones Ql (U) Negative Normal [facility] Comment on above: Performed By: #### 1 [id number], 14583290, [id number] #### [facility] (DEFAULT) [address] [place] [address] 28042 Micro? Indicated [facility] Comment on above: Performed By: #### 1 [id number], [id number], [id number] #### [facility] (DEFAULT) [address] [place] [address] 51519 UA Bilirubin Negative Normal [facility] Comment on above: Performed By: #### 1 [id number], 15543447, [id number] #### [facility] (DEFAULT) [address] [place] [address] 35049 UA Blood TRACE Abnormal NEGATIVE [facility] Comment on above: Performed By: #### 1 [id number], 82239463, [id number] #### [facility] (DEFAULT) [address] [place] [address] 19420 UA Clarity CLEAR Normal CLEAR [facility] Comment on above: Performed By: #### 1 [id number], [id number], [id number] #### [facility] (DEFAULT) [address] [place] [address] 06536 UA Leuk Est MODERATE Abnormal NEGATIVE [facility] Comment on above: Performed By: #### 1 [id number], 72382839, [id number] #### [facility] (DEFAULT) [address] [place] [address] 27372 UA Nitrite Positive Abnormal NEGATIVE [facility] Comment on above: Performed By: #### 1 [id number], [id number], [id number] #### [facility] (DEFAULT) [address] [place] [address] 58962 UA pH 5.5 Normal 5-8 [facility] Comment on above: Performed By: #### 1 [id number], 88212807, 9140545 #### [facility] (DEFAULT) [address] [place] [address] 30433 UA Protein Negative Normal NEGATIVE [facility] Comment on above: Performed By: #### 1 [id number], 55702400, [id number] #### [facility] (DEFAULT) [address] [place] [address] 82863 UA Spec Grav 1.025 Normal 1.001-1.03 5 [facility] Comment on above: Performed By: #### 1 [id number], 67096357, 0967935 #### [facility] (DEFAULT) [address] [place] [address] 07749 UA Urobilinogen 0.2 mg/dL Normal 0.2-1.0 [facility] Comment on above: Performed By: #### 1 [id number], 37304454, 2428044 #### [facility] (DEFAULT) [address] [place] [address] 88324 Urine Source Clean Catch Normal [facility] Comment on above: Performed By: #### 1 [id number], [id number], [id number] #### [facility] (DEFAULT) [address] [place] [address] 32904 JOINT PAIN INJECTIONon 09-06 JOINT PAIN INJECTION [facility] Department of Radiology [address] [place] [id number] ===== Patient Name: DELICIA HSU : 1935 Sex: F Age: Race: White Pt. Location: Patient Status: D Ordered Date: 08/08/2018 3:50:00 PM Completed Date: 09/06/2018 03:43 PM Requesting Provider: HERMELINDO HILLMAN Attending Provider: HERMELINDO HILLMAN Report Copy To: GYPSY MCMAHON Signs & Symptoms: M16.12 Unilateral primary osteoarthritis, left hip I10 History: [place] Comments: , Dr. Ochoa , Body Part: Hip , Side: LEFT , Dr. Ochoa , Body Part: Hip , Side: LEFT , , , Ordering Provider - HERMELINDO HILLMAN MD , Exam: JOINT PAIN INJECTION ===== LEFT HIP -JOINT PAIN INJECTION 09/06/2018 3:46 [...] guidance. Electronically signed by:Christy Ochoa. Transcribed by: [id number], User Resident: Electronically Signed by: CHRISTY OCHOA @ 09/09/2018 05:57 PM Normal [facility] Comment on above: Order Comment: , Dr. Ochoa , Body Part: Hip , Side: LEFT , Dr. Ochoa , Body Part: Hip , Side: LEFT , , , Ordering Provider - HERMELINDO HILLMAN MD , CT 3D LOWER EXTREMITY WO CON TRAST LEFTon 08-02-2018 CT 3D LOWER EXTREMITY WO CONTRAST LEFT [facility] Department of Radiology [address] [place] [id number] ===== Patient Name: DELICIA HSU : 1935 Sex: F Age: Race: White Pt. Location: Patient Status: D Ordered Date: 07/22/2018 9:55:00 AM Completed Date: 08/02/2018 09:41 AM Requesting Provider: MIRTHA VELÁSQUEZ Attending Provider: MIRTHA VELÁSQUEZ Report Copy To: GYPSY MCMAHON Signs & Symptoms: S72.045D Nondisp fx of base of nk of l femr, 7thD I10 History: [place], PHONE:[phone] OR [phone],*NEEDS ORTHO F/U APPT. MEDICARE NO PC REQ JY Comments: , Evaluate left hip healing Exam: CT 3D LOWER EXTREMITY WO CONTRAST LEFT ===== Addendum Begins Please note a misprint in [...] arthritis. Electronically signed by:Coy Jerome. Transcribed by: [email or web address], User Resident: Electronically Signed by: CYO JEROME @ 08/08/2018 02:20 PM Normal [facility] Comment on above: Order Comment: , Jessie perkins left hip healing HIP LEFT 1 OR 2 VWS WITH PEL VISon 03-18-2018 HIP LEFT 1 OR 2 VWS WITH PELVIS [facility] Department of Radiology [address] [place] [id number] ===== Patient Name: DELICIA HSU : 1935 Sex: F Age: Race: White Pt. Location: 84 Patient Status: Ordered Date: 03/18/2018 1:20:00 PM Completed Date: 03/18/2018 01:54 PM Requesting Provider: MIRTHA VELÁSQUEZ Attending Provider: Report Copy To: Signs & Symptoms: S72.045D Nondisp fx of base of nk of l femr, 7thD I10 History: [place] Comments: , , , Ordering Provider - MIRTHA VELÁSQUEZ PA-C , Exam: HIP LEFT 1 OR 2 VWS WITH PELVIS ===== HIP LEFT 1 OR 2 VWS WITH PELVIS 03/18/2018 1:54 PM EST SIGNS AND SYMPTOMS: S72.045D Nondisp fx of base of nk of l femr, 7thD I10 TECHNOLOGIST COMMENTS: History of left hip surgery 06/04/2017. Ortho follow up. QUESTION FOR THE RADIOLOGIST: , , , Ordering Rebeka - MIRTHA VELÁSQEUZ PA-C , PROTOCOL: AP(PA) and Lateral views were obtained. COMPARISON: January 10, 2018 FINDINGS: Soft tissues: No change Bones: No change Joints: No change IMPRESSION: Left femoral neck fracture with screw fixation superimposed upon senescent and degenerative skeleton similar to prior study Electronically signed by:Coy Jerome. Transcribed by: [email or web address], User Resident: Electronically Signed by: COY JEROME @ 03/18/2018 02:19 PM Normal [facility] Comment on above: Order Comment: , , = ========= , Ordering Provider - MIRTHA VELÁSQUEZ PA-C , HIP LEFT 1 OR 2 VWS WITH PEL VISon 01-10-2018 HIP LEFT 1 OR 2 VWS WITH PELVIS [facility] Department of Radiology [address] [place] [id number] ===== Patient Name: DELICIA HSU : 1935 Sex: F Age: Race: White Pt. Location: 84 Patient Status: Ordered Date: 01/10/2018 1:10:00 PM Completed Date: 01/10/2018 01:10 PM Requesting Provider: MIRTHA VELÁSQUEZ Attending Provider: Report Copy To: Signs & Symptoms: S72.045D Nondisp fx of base of nk of l femr, 7thD I10 History: [place] Comments: , Views (X-RAY, HIP): Radiologic Protocol , Views (X-RAY, HIP): Radiologic Protocol , , , Ordering Provider - MIRTHA VELÁSQUEZ PA-C , Exam: HIP LEFT 1 OR 2 VWS WITH PELVIS ===== HIP LEFT 1 OR 2 VWS WITH [...] arthritis. Electronically signed by:Manjit Whatley. Transcribed by: [email or web address], User Resident: Electronically Signed by: MANJIT WHATLEY @ 01/10/2018 04:38 PM Normal [facility] Comment on above: Order Comment: , Carmella ws (X-RAY, HIP): Radiologic Protocol , Views (X-RAY, HIP): Radiologic Protocol , , , Ordering Provider - MIRTHA VELÁSQUEZ PA-C , HIP LEFT 1 OR 2 VWS WITH PEL VISon 11-01-2017 HIP LEFT 1 OR 2 VWS WITH PELVIS [facility] Department of Radiology [address] [place] [id number] ===== Patient Name: DELICIA HSU : 1935 Sex: [...] LEFT 1 OR 2 VWS WITH PELVIS ===== HIP LEFT 1 OR 2 VWS WITH PELVIS 11/01/2017 3:00 PM EDT SIGNS AND SYMPTOMS: S72.045D Nondisp fx of base of nk of l femr, 7thD I10 TECHNOLOGIST COMMENTS: History of left hip surgery 06/04/2017. Ortho follow up. QUESTION FOR THE RADIOLOGIST: , Views (X-RAY, HIP): Radiologic Protocol , Views (X-RAY, HIP): Radiologic Protocol , , , Ordering Rebeka - MIRTHA [...] study. Electronically signed by:Gerson Rodriguez. Transcribed by: [email or web address], User Resident: Electronically Signed by: GERSON RODRIGUEZ @ 11/01/2017 03:25 PM Normal [facility] Comment on above: Order Comment: , Carmella ws (X-RAY, HIP): Radiologic Protocol , Views (X-RAY, HIP): Radiologic Protocol , , , Ordering Provider - MIRTHA DIDIER PA-C , HIP LEFT 1 OR 2 VWS WITH PEL VISon 09-21-2017 HIP LEFT 1 OR 2 VWS WITH PELVIS [facility] Department of Radiology [address] [place] [phone] ===== Patient Name: DELICIA SHU : 1935 Sex: F Age: Race: White Pt. Location: 84 Patient Status: Ordered Date: 09/21/2017 2:00:00 PM Completed Date: 09/21/2017 01:58 PM Requesting Provider: MIRTHA VELÁSQUEZ Attending Provider: Report Copy To: Signs & Symptoms: S72.045D Nondisp fx of base of nk of l femr, 7thD I10 History: [place] Comments: , , , Ordering Provider - MIRTHA VELÁSQUEZ PA-C , Exam: HIP LEFT 1 OR 2 VWS WITH PELVIS ===== HIP LEFT 1 OR 2 VWS WITH [...] fracture Electronically signed by:Coy Jerome. Transcribed by: [email or web address], User Resident: Electronically Signed by: COY JEROME @ 09/21/2017 03:27 PM Normal [facility] Comment on above: Order Comment: , , = ========= , Ordering Provider - MIRTHA VELÁSQUEZ PA-C , Vital Signs Date Time Vital Sign Value Performing Clinician Facility 03-23-2024 14:07-0500 Body height 177.8 cm [facility] 03-23-2024 14:07-0500 Body mass index (BMI) [Ratio] 20.2 kg/m2 [facility] 03-23-2024 14:07-0500 Body weight 63.95 kg [facility] 03-23-2024 14:07-0500 Diastolic blood pressure 67 mm[Hg] [facility] 03-23-2024 14:07-0500 Heart rate 60 /min [facility] 03-23-2024 14:07-0500 Systolic blood pressure 150 mm[Hg] [facility] 02-24-2024 11:12-0500 Body height 177 cm Deuce Kirkland MD Work Phone: [facility] 02-24-2024 11:12-0500 Body mass index (BMI) [Ratio] 21.72 kg/m2 Deuce Kirkland MD Work Phone: [facility] 02-24-2024 11:12-0500 Body temperature 97.7 [degF] Deuce Kirkland MD Work Phone: [facility] 02-24-2024 11:12-0500 Body weight 68.04 kg Deuce Kirkland MD Work Phone: [facility] 02-24-2024 11:12-0500 Diastolic blood pressure 52 mm[Hg] Deuce Kirkland MD Work Phone: [facility] 02-24-2024 11:12-0500 Heart rate 72 /min Deuce Kirkland MD Work Phone: [facility] 02-24-2024 11:12-0500 Respiratory rate 18 /min Deuce Kirkland MD Work Phone: [facility] 02-24-2024 11:12-0500 Systolic blood pressure 132 mm[Hg] Deuce Kirkland MD Work Phone: [facility] 02-21-2024 13:37-0500 Body height 177.8 cm [facility] 02-21-2024 13:37-0500 Body mass index (BMI) [Ratio] 20.7 kg/m2 [facility] 02-21-2024 13:37-0500 Body weight 65.77 kg [facility] 02-21-2024 13:37-0500 Diastolic blood pressure 49 mm[Hg] [facility] 02-21-2024 13:37-0500 Heart rate 62 /min [facility] 02-21-2024 13:37-0500 Systolic blood pressure 110 mm[Hg] [facility] 01-20-2024 10:39-0500 Body height 177 cm Deuce Kirkland MD Work Phone: [facility] 01-20-2024 10:39-0500 Body mass index (BMI) [Ratio] 21.72 kg/m2 Deuce Kirkland MD Work Phone: [facility] 01-20-2024 10:39-0500 Body temperature 98.4 [degF] Deuce Kirkland MD Work Phone: [facility] 01-20-2024 10:39-0500 Body weight 68.04 kg Deuce Kirkland MD Work Phone: [facility] 01-20-2024 10:39-0500 Diastolic blood pressure 52 mm[Hg] Deuce Kirkland MD Work Phone: [facility] 01-20-2024 10:39-0500 Heart rate 84 /min Deuce Kirkland MD Work Phone: [facility] 01-20-2024 10:39-0500 Respiratory rate 18 /min Deuce Kirkland MD Work Phone: [facility] 01-20-2024 10:39-0500 SaO2% (BldA) [Mass fraction] 98 % Deuce Kirkland MD Work Phone: [facility] 01-20-2024 10:39-0500 Systolic blood pressure 148 mm[Hg] Deuce Kirkland MD Work Phone: [facility] 01-07-2024 11:07-0500 Body temperature 97.5 [degF] Deuce Kirkland MD Work Phone: [facility] 01-07-2024 11:07-0500 Diastolic blood pressure 64 mm[Hg] Deuce Kirkland MD Work Phone: [facility] 01-07-2024 11:07-0500 Heart rate 77 /min Deuce Kirkland MD Work Phone: [facility] 01-07-2024 11:07-0500 Respiratory rate 16 /min Deuce Kirkland MD Work Phone: [facility] 01-07-2024 11:07-0500 SaO2% (BldA) [Mass fraction] 100 % Deuce Kirkland MD Work Phone: [facility] 01-07-2024 11:07-0500 Systolic blood pressure 131 mm[Hg] Deuce Kirkland MD Work Phone: [facility] 01-06-2024 03:22-0500 Body mass index (BMI) [Ratio] 21.54 kg/m2 Deuce Kirkland MD Work Phone: [facility] 01-06-2024 03:22-0500 Body weight 68.1 kg Deuce Kirkland MD Work Phone: [facility] 01-01-2024 18:33-0500 Body height 177.8 cm Deuce Kirkland MD Work Phone: [facility] 01-01-2024 16:38-0500 Body temperature 98.6 [degF] Deuce Kirkland MD Work Phone: [facility] 01-01-2024 16:38-0500 SaO2% (BldA) [Mass fraction] 100.3 % Deuce Kirkland MD Work Phone: [facility] 12-31-2023 09:36-0500 Diastolic blood pressure 80 mm[Hg] [facility] 12-31-2023 09:36-0500 Systolic blood pressure 206 mm[Hg] [facility] 12-31-2023 09:05-0500 Body height 177.8 cm [facility] 12-31-2023 09:05-0500 Body mass index (BMI) [Ratio] 20.69 kg/m2 [facility] 12-31-2023 09:05-0500 Body temperature 96.91 [degF] [facility] 12-31-2023 09:05-0500 Body weight 65.4 kg [facility] 12-31-2023 09:05-0500 Heart rate 56 /min [facility] 12-31-2023 09:05-0500 Respiratory rate 18 /min [facility] 12-31-2023 09:05-0500 SaO2% (BldA) [Mass fraction] 97 % [facility] 12-30-2023 13:07-0500 Body mass index (BMI) [Ratio] 20.23 kg/m2 Deuce Kirkland MD Work Phone: [facility] 12-30-2023 13:07-0500 Body weight 63.96 kg Deuce Kirkland MD Work Phone: [facility] 12-30-2023 13:07-0500 Diastolic blood pressure 68 mm[Hg] Deuce Kirkland MD Work Phone: [facility] 12-30-2023 13:07-0500 Heart rate 65 /min Deuce Kirkland MD Work Phone: [facility] 12-30-2023 13:07-0500 Systolic blood pressure 186 mm[Hg] Deuce Kirkland MD Work Phone: [facility] 12-23-2023 14:27-0500 Body height 177.8 cm [facility] 12-23-2023 14:27-0500 Body mass index (BMI) [Ratio] 19.37 kg/m2 [facility] 12-23-2023 14:27-0500 Body weight 61.24 kg [facility] 12-09-2023 10:02-0400 Body height 177.8 cm Deuce Kirkland MD Work Phone: [facility] 12-09-2023 10:02-0400 Body mass index (BMI) [Ratio] 19.66 kg/m2 Deuce Kirkland MD Work Phone: [facility] 12-09-2023 10:02-0400 Body temperature 97.3 [degF] Deuce Kirkland MD Work Phone: [facility] 12-09-2023 10:02-0400 Body weight 62.14 kg Deuce Kirkland MD Work Phone: [facility] 12-09-2023 10:02-0400 Diastolic blood pressure 72 mm[Hg] Deuce Kirkland MD Work Phone: [facility] 12-09-2023 10:02-0400 Heart rate 78 /min Deuce Kirkland MD Work Phone: [facility] 12-09-2023 10:02-0400 SaO2% (BldA) [Mass fraction] 98 % Deuce Kirkland MD Work Phone: [facility] 12-09-2023 10:02-0400 Systolic blood pressure 172 mm[Hg] Deuce Kirkland MD Work Phone: [facility] 11-16-2023 09:04-0400 Body height 175.3 cm [facility] 11-16-2023 09:04-0400 Body mass index (BMI) [Ratio] 19.94 kg/m2 [facility] 11-16-2023 09:04-0400 Body weight 61.24 kg [facility] 10-27-2023 14:41-0400 Body height 176.5 cm [facility] 10-27-2023 14:41-0400 Body mass index (BMI) [Ratio] 19.8 kg/m2 [facility] 10-27-2023 14:41-0400 Body weight 61.69 kg [facility] 10-14-2023 10:22-0400 Body height 177.8 cm Deuce Kirkland MD Work Phone: [facility] 10-14-2023 10:22-0400 Body mass index (BMI) [Ratio] 19.51 kg/m2 Deuce Kirkland MD Work Phone: [facility] 10-14-2023 10:22-0400 Body weight 61.69 kg Deuce Kirkland MD Work Phone: [facility] 10-14-2023 10:22-0400 Diastolic blood pressure 76 mm[Hg] Deuce Kirkland MD Work Phone: [facility] 10-14-2023 10:22-0400 Heart rate 72 /min Deuce Kirkland MD Work Phone: [facility] 10-14-2023 10:22-0400 SaO2% (BldA) [Mass fraction] 93 % Deuce Kirkland MD Work Phone: [facility] 10-14-2023 10:22-0400 Systolic blood pressure 148 mm[Hg] Deuce Kirkland MD Work Phone: [facility] 06-17-2023 14:00-0400 Diastolic blood pressure 68 mm[Hg] Deuce Kirkland MD Work Phone: [facility] 06-17-2023 14:00-0400 Heart rate 72 /min Deuce Kirkland MD Work Phone: [facility] 06-17-2023 14:00-0400 Systolic blood pressure 124 mm[Hg] Deuce Kirkland MD Work Phone: [facility] 06-17-2023 13:59-0400 Body height 177.8 cm Deuce Kirkland MD Work Phone: [facility] 06-17-2023 13:59-0400 Body mass index (BMI) [Ratio] 19.63 kg/m2 Deuce Kirkland MD Work Phone: [facility] 06-17-2023 13:59-0400 Body weight 62.05 kg Deuce Kirkland MD Work Phone: [facility] 05-24-2023 13:35-0400 Body height 177.8 cm MD Gypsy Mcmahon Work Phone: [facility] 05-24-2023 13:35-0400 Body mass index (BMI) [Ratio] 18.8 kg/m2 MD Gypsy Mcmaohn Work Phone: [facility] 05-24-2023 13:35-0400 Body temperature 97.7 [degF] MD Gypsy Mcmahon Work Phone: [facility] 05-24-2023 13:35-0400 Body weight 59.42 kg MD Gypsy Mcmahon Work Phone: [facility] 05-24-2023 13:35-0400 Diastolic blood pressure 54 mm[Hg] MD Gypsy Mcmahon Work Phone: [facility] 05-24-2023 13:35-0400 Heart rate 63 /min MD Gypsy Mcmahon Work Phone: [facility] 05-24-2023 13:35-0400 Systolic blood pressure 127 mm[Hg] MD Gypsy Mcmahon Work Phone: [facility] 05-21-2023 10:26-0400 Body height 177.8 cm MD Gypsy Mcmahon Work Phone: [facility] 05-21-2023 09:54-0400 Body mass index (BMI) [Ratio] 18.6 kg/m2 MD Gypsy Mcmahon Work Phone: [facility] 05-21-2023 09:54-0400 Body weight 58.96 kg MD Gypsy Mcmahon Work Phone: [facility] 05-05-2023 16:40-0400 Diastolic blood pressure 71 mm[Hg] MD Jacinto Max Work Phone: [facility] 05-05-2023 16:40-0400 Systolic blood pressure 170 mm[Hg] MD Jacinto Max Work Phone: [facility] 05-05-2023 16:36-0400 Body height 177.8 cm MD Jacinto Max Work Phone: [facility] 05-05-2023 16:36-0400 Body temperature 98.1 [degF] MD Jacinto Max Work Phone: [facility] 05-05-2023 16:36-0400 Body weight 59.87 kg MD Jacinto Max Work Phone: [facility] 05-05-2023 16:36-0400 Heart rate 71 /min MD Jacinto Max Work Phone: [facility] 05-05-2023 16:36-0400 Respiratory rate 18 /min MD Jacinto Max Work Phone: [facility] 05-05-2023 16:36-0400 SaO2% (BldA) [Mass fraction] 98 % MD Jacinto Max Work Phone: [facility] 04-15-2023 13:30-0500 Body height 167.64 cm MD Jacinto Max Work Phone: [facility] 04-15-2023 13:30-0500 Body mass index (BMI) [Ratio] 20.8 kg/m2 MD Jacinto Max Work Phone: [facility] 04-15-2023 13:30-0500 Body temperature 97.2 [degF] MD Jacinto Max Work Phone: [facility] 04-15-2023 13:30-0500 Body weight 58.57 kg MD Jacinto Max Work Phone: [facility] 04-15-2023 13:30-0500 Diastolic blood pressure 75 mm[Hg] MD Jacinto Max Work Phone: [facility] 04-15-2023 13:30-0500 Heart rate 60 /min MD Jacinto Max Work Phone: [facility] 04-15-2023 13:30-0500 Systolic blood pressure 165 mm[Hg] MD Jacinto Max Work Phone: [facility] 02-26-2023 10:00-0500 Body height 167.64 cm MD Jacinto Max Work Phone: [facility] 02-26-2023 10:00-0500 Diastolic blood pressure 76 mm[Hg] MD Jacinto Max Work Phone: [facility] 02-26-2023 10:00-0500 Systolic blood pressure 156 mm[Hg] MD Jacinto Max Work Phone: [facility] 02-25-2023 10:15-0500 Body height 175.26 cm MD Jacinto Max Work Phone: [facility] 02-25-2023 10:15-0500 Body weight 59.1 kg MD Jacinto Max Work Phone: [facility] 02-25-2023 10:02-0500 Diastolic blood pressure 74 mm[Hg] MD Jacinto Max Work Phone: [facility] 02-25-2023 10:02-0500 Heart rate 67 /min MD Jacinto Max Work Phone: [facility] 02-25-2023 10:02-0500 Systolic blood pressure 157 mm[Hg] MD Jacinto Max Work Phone: [facility] 02-18-2023 14:00-0500 Body height 167.64 cm Jacinto Max Other [facility] 02-18-2023 14:00-0500 Body mass index (BMI) [Ratio] 20.66 kg/m2 Jacinto Max Other [employer] Other 02-18-2023 14:00-0500 Body temperature 97.2 [degF] Jacinto Max Other [employer] Other 02-18-2023 14:00-0500 Body weight 58.06 kg Jacinto Max Other [employer] Other 02-18-2023 14:00-0500 Body weight 58.05 kg MD Jacinto Max Work Phone: [facility] 02-18-2023 14:00-0500 Diastolic blood pressure 66 mm[Hg] Jacinto Max Other [facility] 02-18-2023 14:00-0500 Systolic blood pressure 150 mm[Hg] Jacinto Max Other [facility] 02-16-2023 13:30-0500 Body height 167.64 cm Gypsy Mcmahon Other [facility] 02-16-2023 13:30-0500 Body mass index (BMI) [Ratio] 20.66 kg/m2 Gypsy Mcmahon Other [facility] [employer] Other 02-16-2023 13:30-0500 Body weight 58.06 kg Gypsy Mcmahon Other [employer] [facility] [employer] Other 02-16-2023 13:30-0500 Body weight 58.05 kg MD Jacinto Max Work Phone: [facility] 02-16-2023 13:30-0500 Diastolic blood pressure 68 mm[Hg] Gypsy Mcmahon Other [facility] 02-16-2023 13:30-0500 SaO2% (BldA) [Mass fraction] 96 % Gypsy Mcmahon Other [employer] [facility] [employer] Other 02-16-2023 13:30-0500 Systolic blood pressure 140 mm[Hg] Gypsy Mcmahon Other [facility] 02-04-2023 09:09-0500 Heart rate 84 /min MALATHI DEB [facility] 02-04-2023 09:09-0500 SaO2% (BldA) [Mass fraction] 95 % MALATHI DEB [facility] 02-04-2023 09:08-0500 Diastolic blood pressure 88 mm[Hg] MALATHI DEB [facility] 02-04-2023 09:08-0500 Mean blood pressure 121 mm[Hg] MALATHI DEB [facility] 02-04-2023 09:08-0500 Systolic blood pressure 188 mm[Hg] MALATHI DEB [facility] 02-04-2023 09:08-0500 Respiratory rate 20 /min MALATHI DEB [facility] 02-04-2023 09:08-0500 Body temperature 97.7 [degF] MALATHI DEB [facility] 02-03-2023 09:15-0500 Heart rate 77 /min MALATHI DEB [facility] 02-03-2023 09:15-0500 SaO2% (BldA) [Mass fraction] 97 % MALATHI DEB [facility] 02-03-2023 09:14-0500 Respiratory rate 18 /min MALATHI DEB [facility] 02-03-2023 09:14-0500 Diastolic blood pressure 97 mm[Hg] MALATHI DEB [facility] 02-03-2023 09:14-0500 Mean blood pressure 130 mm[Hg] MALATHI DEB [facility] 02-03-2023 09:14-0500 Systolic blood pressure 197 mm[Hg] MALATHI DEB [facility] 02-03-2023 09:13-0500 Body temperature 98.06 [degF] MALATHI DEB [facility] 02-02-2023 09:10-0500 Heart rate 75 /min MALATHI DEB [facility] 02-02-2023 09:10-0500 SaO2% (BldA) [Mass fraction] 93 % MALATHI DEB [facility] 02-02-2023 09:09-0500 Respiratory rate 20 /min MALATHI DEB [facility] 02-02-2023 09:08-0500 Diastolic blood pressure 87 mm[Hg] MALATHI EDB [facility] 02-02-2023 09:08-0500 Mean blood pressure 123 mm[Hg] MALATHI DEB [facility] 02-02-2023 09:08-0500 Systolic blood pressure 194 mm[Hg] MALATHI DEB [facility] 02-02-2023 09:08-0500 Body temperature 97.7 [degF] MALATHI DEB [facility] 02-01-2023 09:50-0500 Heart rate 77 /min MALATHI DEB [facility] 02-01-2023 09:50-0500 Mean blood pressure 115 mm[Hg] MALATHI DEB [facility] 02-01-2023 09:10-0500 Heart rate 84 /min MALATHI DEB [facility] 01-29-2023 11:26-0500 Heart rate 75 /min MALATHI DEB [facility] 01-29-2023 11:26-0500 SaO2% (BldA) [Mass fraction] 95 % MALATHI DEB [facility] 01-29-2023 11:26-0500 Respiratory rate 16 /min MALATHI DEB [facility] 01-29-2023 11:25-0500 Diastolic blood pressure 83 mm[Hg] MALATHI DEB [facility] 01-29-2023 11:25-0500 Mean blood pressure 108 mm[Hg] MALATHI DEB [facility] 01-29-2023 11:25-0500 Systolic blood pressure 158 mm[Hg] MALATHI DEB [facility] 01-29-2023 11:25-0500 Body temperature 98.06 [degF] MALATHI DEB [facility] 01-29-2023 10:54-0500 Heart rate 74 /min MALATHI DEB [facility] 01-29-2023 10:54-0500 SaO2% (BldA) [Mass fraction] 97 % MALATHI DEB [facility] 01-29-2023 10:54-0500 Respiratory rate 16 /min MALATHI DEB [facility] 01-29-2023 10:53-0500 Body temperature 97.52 [degF] MALATHI DEB [facility] 01-29-2023 10:53-0500 Diastolic blood pressure 84 mm[Hg] MALATHI VIEIRA [facility] 01-29-2023 10:53-0500 Mean blood pressure 104 mm[Hg] MALATHI VIEIRA [facility] 01-29-2023 10:53-0500 Systolic blood pressure 146 mm[Hg] MALATHI VIEIRA [facility] 01-12-2023 13:30-0500 Body height 167.64 cm Hunter Manny Other [employer] [facility] [employer] Other 01-12-2023 13:30-0500 Body mass index (BMI) [Ratio] 22 kg/m2 Hunter Manny Other [employer] Other 01-12-2023 13:30-0500 Body weight 61.83 kg Hunter Brown Other [employer] Other 01-12-2023 13:30-0500 Diastolic blood pressure 60 mm[Hg] Hunter Brown Other [employer] Other 01-12-2023 13:30-0500 Systolic blood pressure 137 mm[Hg] Hunter Brown Other [employer] Other 01-05-2023 11:30-0500 Body height 167.64 cm Gypsy Mcmahon Other [employer] Other 01-05-2023 11:30-0500 Body mass index (BMI) [Ratio] 21.63 kg/m2 Gypsy Mcmahon Other [employer] Other 01-05-2023 11:30-0500 Body weight 60.78 kg Gypsy Mcmahon Other [employer] Other 01-05-2023 11:30-0500 Diastolic blood pressure 72 mm[Hg] Gypsy Mcmahon Other [employer] [employer] Other 01-05-2023 11:30-0500 Systolic blood pressure 162 mm[Hg] Gypsy Mcmahon Other [employer] Other 12-28-2022 13:30-0500 Body height 167.64 cm Malathi Velázquez Other [employer] Other 12-28-2022 13:30-0500 Body mass index (BMI) [Ratio] 19.98 kg/m2 Malathi Velázquez Other [employer] Other 12-28-2022 13:30-0500 Body weight 56.16 kg Malathi Velázquez Other [employer] Other 12-28-2022 13:30-0500 Diastolic blood pressure 78 mm[Hg] Malathi Velázquez Other [employer] Other 12-28-2022 13:30-0500 Systolic blood pressure 146 mm[Hg] Malathi Velázquez Other [employer] Other 12-15-2022 11:15-0500 Body height 167.64 cm Gypsy Mcmahon Other [employer] Other 12-15-2022 11:15-0500 Body mass index (BMI) [Ratio] 21.53 kg/m2 Gypsy Mcmahon Other [employer] Other 12-15-2022 11:15-0500 Body weight 60.51 kg Gypsy Mcmahon Other [employer] Other 12-15-2022 11:15-0500 Diastolic blood pressure 73 mm[Hg] Gypsy Mcmahon Other [employer] Other 12-15-2022 11:15-0500 Systolic blood pressure 178 mm[Hg] Gypsy Mcmahon Other [employer] Other 09-22-2022 14:14-0400 Blood Pressure Location MALAHTI DEB [facility] 09-22-2022 14:14-0400 Diastolic blood pressure 90 mm[Hg] MALATHI DEB [facility] 09-22-2022 14:14-0400 Heart rate 78 /min MALATHI DEB [facility] 09-22-2022 14:14-0400 Systolic blood pressure 142 mm[Hg] MALATHI DEB [facility] 09-01-2022 14:15-0400 Body height 167.64 cm Gypsy Mcmahon Other [employer] Other 09-01-2022 14:15-0400 Body mass index (BMI) [Ratio] 21.14 kg/m2 Gypsy Mcmahon Other [employer] [facility] [employer] Other 09-01-2022 14:15-0400 Body weight 59.42 kg Gypsy Mcmahon Other [employer] Other 09-01-2022 14:15-0400 Diastolic blood pressure 56 mm[Hg] Gypsy Mcmahon Other [employer] Other 09-01-2022 14:15-0400 Systolic blood pressure 132 mm[Hg] Gypsy Mcmahon Other [facility] [employer] Other 06-09-2022 13:42-0400 Diastolic blood pressure 71 mm[Hg] Marvin KWON [facility] 06-09-2022 13:42-0400 Heart rate 59 /min Marvin KWON [facility] 06-09-2022 13:42-0400 Systolic blood pressure 183 mm[Hg] Marvin KWON [facility] 04-24-2022 11:30-0400 Body height 167.64 cm Hunter Brown Other [employer] Other 04-24-2022 11:30-0400 Body mass index (BMI) [Ratio] 22.11 kg/m2 Hunter Brown Other [employer] Other 04-24-2022 11:30-0400 Body weight 62.14 kg Hunter Brown Other [employer] Other 04-24-2022 11:30-0400 Diastolic blood pressure 70 mm[Hg] Hunter Brown Other [employer] Other 04-24-2022 11:30-0400 Systolic blood pressure 159 mm[Hg] Hunter Brown Other [employer] Other 04-07-2022 14:15-0500 Body height 167.64 cm Gypsy Mcmahon Other [employer] Other 04-07-2022 14:15-0500 Body mass index (BMI) [Ratio] 21.79 kg/m2 Gypsy Mcmahon Other [employer] [facility] [employer] Other 04-07-2022 14:15-0500 Body weight 61.24 kg Gypsy Mcmahon Other [employer] Other 04-07-2022 14:15-0500 Diastolic blood pressure 62 mm[Hg] Gypsy Mcmahon Other [employer] Other 04-07-2022 14:15-0500 Systolic blood pressure 130 mm[Hg] Gypsy Mcmahon Other [employer] Other 03-11-2022 13:35-0500 Body temperature 97.5 [degF] MD Gypsy Mcmahon Work Phone: [facility] 03-11-2022 13:35-0500 Diastolic blood pressure 61 mm[Hg] MD Gypsy Mcmahon Work Phone: [facility] 03-11-2022 13:35-0500 Heart rate 60 /min MD Gypsy Mcmahon Work Phone: [facility] 03-11-2022 13:35-0500 Respiratory rate 18 /min MD Gypsy Mcmahon Work Phone: [facility] 03-11-2022 13:35-0500 SaO2% (BldA) [Mass fraction] 96 % MD Gypsy Mcmahon Work Phone: [facility] 03-11-2022 13:35-0500 Systolic blood pressure 135 mm[Hg] MD Gypsy Mcmahon Work Phone: [facility] 02-16-2022 10:45-0500 Body height 167.64 cm Gypsy Mcmahon Other [employer] [facility] [employer] Other 02-16-2022 10:45-0500 Body mass index (BMI) [Ratio] 21.46 kg/m2 Gypsy Mcmahon Other [employer] Other 02-16-2022 10:45-0500 Body weight 60.33 kg Gypsy Mcmahon Other [employer] Other 02-16-2022 10:45-0500 Diastolic blood pressure 70 mm[Hg] Gypsy Mcmahon Other [employer] Other 02-16-2022 10:45-0500 Systolic blood pressure 120 mm[Hg] Gypsy Mcmahon Other [employer] Other 02-11-2022 12:00-0500 Body height 172.72 cm Hunter Brown Other [employer] Other 02-11-2022 12:00-0500 Body mass index (BMI) [Ratio] 20.83 kg/m2 Hunter Brown Other [employer] Other 02-11-2022 12:00-0500 Body weight 62.14 kg Hunter Brown Other [employer] Other 02-11-2022 12:00-0500 Diastolic blood pressure 68 mm[Hg] Hunter Brown Other [employer] Other 02-11-2022 12:00-0500 Systolic blood pressure 144 mm[Hg] Hunter Brown Other [employer] Other 01-05-2022 10:30-0500 Body height 172.72 cm Hunter Brown Other [employer] Other 01-05-2022 10:30-0500 Body mass index (BMI) [Ratio] 22.04 kg/m2 Hunter Brown Other [employer] Other 01-05-2022 10:30-0500 Body weight 65.77 kg Hunter Brown Other [employer] Other 01-05-2022 10:30-0500 Diastolic blood pressure 78 mm[Hg] Hunter Brown Other [employer] Other 01-05-2022 10:30-0500 Systolic blood pressure 166 mm[Hg] Hunter Brown Other [employer] Other 03-27-2021 12:00-0500 Body height 172.72 cm Giana Villar Other [employer] Other 03-27-2021 12:00-0500 Body mass index (BMI) [Ratio] 22.96 kg/m2 Giana Villra Other [employer] Other 03-27-2021 12:00-0500 Body weight 68.49 kg Giana Villar Other [employer] Other 01-27-2021 10:45-0500 Body height 172.72 cm Giana Villar Other [employer] Other 01-27-2021 10:45-0500 Body mass index (BMI) [Ratio] 24.48 kg/m2 Giana Villar Other [employer] Other 01-27-2021 10:45-0500 Body weight 73.03 kg Giana Villar Other [employer] Other Encounters Encounter Date Encounter Type Care Provider Facility Start: 03-23-2024 End: 04-05-2024 Telephone encounter Deuce Kirkland MD Work Phone: [facility] Start: 03-23-2024 End: 03-23-[address] [facility] Work Phone: Start: 03-23-2024 End: 03-23-2024 Patient encounter procedure [facility] Work Phone: Start: 03-02-2024 End: 03-02-2024 ambulatory [facility] Start: 02-28-2024 End: 02-28-2024 Office outpatient visit 25 minutes Sunny Ingram 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 Work Phone: [facility] Comment on above: Primary osteoarthrit is of left knee (Primary Dx); Left knee pain, unspecified chronicity; Olecranon bursitis, right elbow Start: 02-28-2024 End: 02-28-2024 ambulatory SUNNY INGRAM Not Available Start: 02-28-2024 End: 02-28-2024 Bamboo flowsheet Sunny Ingram 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 Work Phone: [facility] Start: 02-28-2024 End: 02-28-2024 Bamboo flowsheet Sunny Ingram 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 Work Phone: [facility] Start: 02-24-2024 End: 02-24-2024 Office outpatient visit 25 minutes Deuce Kirkland MD [facility] Comment on above: 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); Critical limb ischemia of left lower extremity with rest pain (CMS-HCC) Start: 02-21-2024 End: 02-21-2024 Patient encounter procedure [facility] Work Phone: Start: 02-18-2024 End: 02-18-2024 ambulatory DEUCE KIRKLAND [facility] Start: 01-20-2024 End: 01-20-2024 Postop follow up visit related to original px Deuce Kirkland MD Work Phone: [facility] Surgery Comment on above: 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) Start: 01-18-2024 [facility] Start: 01-10-2024 Non-patient / Non-visit [facility] [place] Work Phone: Start: 01-08-2024 End: 01-08-2024 Evaluation and management of inpatient GYPSY MCMAHON [facility] Start: 01-04-2024 End: 01-08-2024 Evaluation and management of inpatient HILDA SMITH [facility] Start: 01-01-2024 End: 01-08-2024 Evaluation [facility] management of inpatient [facility] Start: 01-01-2024 End: 01-07-2024 Evaluation and management of inpatient [facility] Start: 12-31-2023 End: 12-31-2023 Patient encounter procedure [facility] Comment on above: Critical limb ischem ia of both lower extremities with rest pain (CMS-HCC) (Primary Dx); 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); Venous insufficiency (chronic) (peripheral) Start: 12-30-2023 End: 12-30-2023 ambulatory [facility] Start: 12-27-2023 Non-patient / Non-visit [facility] Work Phone: Start: 12-24-2023 End: 12-24-2023 Evaluation and management of inpatient CHAPINCITO D SUE [facility] Start: 12-24-2023 End: 12-24-2023 Evaluation and management of inpatient [facility] Start: 12-23-2023 End: 12-23-2023 ambulatory GYPSY MCMAHON [facility] Start: 12-22-2023 End: 12-22-2023 ambulatory [facility] Start: 12-15-2023 End: 12-15-2023 Orders Only Marj Kelly [facility] Comment on above: Venous ulcer of ankl e, right (CMS-HCC) (Primary Dx) Start: 12-14-2023 End: 12-14-2023 Bamboo flowsheet Sunny Ingram NP Work Phone: [facility] Start: 12-14-2023 End: 12-14-2023 Bamboo flowsheet Sunny Ingram NP Work Phone: [facility] Start: 12-14-2023 End: 12-14-2023 Office outpatient visit 10 minutes Sunny Ingram NP Work Phone: [facility] Comment on above: Trochanteric bursiti s of left hip (Primary Dx); Primary osteoarthritis of left hip; History of left hip replacement Start: 12-14-2023 End: 12-14-2023 ambulatory SUNNY INGRAM Not Available Start: 12-09-2023 End: 12-09-2023 Office outpatient visit 25 minutes Deuce Kirkland MD Work Phone: 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); Venous ulcer of ankle, right (CMS-HCC); Critical limb ischemia of both lower extremities with rest pain (CMS-HCC) Start: 11-18-2023 End: 11-19-2023 ambulatory [facility] Start: 11-16-2023 End: 11-16-2023 Evaluation and management of inpatient GYPSY MCMAHON [facility] Start: 11-16-2023 End: 11-16-2023 Admission to [facility] Call Provider 1 [facility] Start: 11-09-2023 End: 11-09-2023 ambulatory [facility] Start: 11-09-2023 End: 11-09-2023 Encounter for other preprocedural examination [facility] Start: 11-05-2023 End: 11-05-2023 Evaluation and management of inpatient [facility] Start: 10-27-2023 End: 10-27-2023 Evaluation and management of inpatient GYPSY MCMAHON [facility] Start: 10-27-2023 End: 10-27-2023 Admission to [facility] Phone Call Provider 3 Madeline Becerra [facility] Start: 10-27-2023 End: 10-27-2023 ambulatory [facility] Start: 10-20-2023 End: 10-20-2023 ambulatory [facility] Start: 10-14-2023 End: 10-14-2023 Office outpatient visit 40 minutes Deuce Kirkland MD Work Phone: [facility] Comment on above: 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 ([facility]-HCC) (Primary Dx); Venous ulcer of right leg ([facility]-HCC) Start: 09-01-2023 Patient encounter procedure [facility] Start: 06-23-2023 End: 06-23-2023 ambulatory [facility] Start: 06-17-2023 End: 06-17-2023 Office outpatient visit 25 minutes Deuce Kirkland MD Work Phone: [facility] Comment on above: PAD (peripheral jhonatan ry disease) ([facility]-HCC) (Primary Dx) Start: 06-17-2023 End: 06-17-2023 ambulatory [facility] Start: 06-15-2023 End: 06-15-2023 ambulatory MALATHI GUERRERORY Facility: [facility] Start: 06-15-2023 End: 06-15-2023 Patient encounter procedure MALATHIALMAZ VIEIRA [facility] Start: 05-28-2023 End: 05-28-2023 ambulatory Monie Wallace Facility:[facility] Start: 05-28-2023 End: 05-28-2023 ambulatory MD Gypsy Mcmahon Work Phone: [facility] Work Phone: Start: 05-28-2023 End: 05-28-2023 Patient encounter procedure MD Gypsy Mcmahon Work Phone: [facility]-CT Scan [facility] [place] Work Phone: Start: 05-25-2023 Non-patient / Non-visit MD Dontae Mcmahon Work Phone: [facility] Work Phone: Start: 05-24-2023 End: 05-24-2023 Patient encounter procedure MD Gypsy Mcmahon Work Phone: [facility] Work Phone: Start: 05-21-2023 End: 05-21-2023 Patient encounter procedure MD Gypsy Mcmahon Work Phone: [facility] Work Phone: Start: 05-06-2023 Non-patient / Non-visit MD Dontae Mcmahon Work Phone: [facility] Work Phone: Start: 05-05-2023 End: 05-05-2023 Emergency department patient visit Marvin cB Garcia Facility:[facility] Start: 05-05-2023 End: 05-05-2023 Emergency department patient visit MD Jacinto Max Work Phone: [facility]-Emergency Room Work Phone: Start: 05-01-2023 Non-patient / Non-visit MD Jody Max Work Phone: [facility] Work Phone: Start: 04-15-2023 End: 04-15-2023 Patient encounter procedure MD Jacinto Max Work Phone: [facility] Infectious Disease Work Phone: Start: 04-06-2023 Non-patient / Non-visit MD Jody Max Work Phone: [facility] Work Phone: Start: 03-12-2023 End: 03-12-2023 ambulatory Jacinto Max Other [facility] [employer] Other Start: 03-12-2023 Telephone encounter Jacinto [facility] Start: 03-11-2023 End: 03-11-2023 ambulatory Jacinto aMx Other [facility] [employer] Other Start: 03-11-2023 Telephone encounter Jacinto [facility] Start: 03-02-2023 End: 03-02-2023 ambulatory Gypsy Mcmahon Other [facility] [employer] Other Start: 03-02-2023 Telephone encounter Gypsy Mcmahon [facility] Start: 02-26-2023 End: 02-26-2023 Patient encounter procedure MD Jacinto Max Work Phone: [facility] Start: 02-25-2023 End: 02-25-2023 ambulatory Jacinto Max Facility:[facility] Start: 02-25-2023 End: 02-25-2023 ambulatory MD Jacinto Max Work Phone: [facility] Work Phone: Start: 02-25-2023 End: 02-25-2023 Discharged Recurring MD Jacinto Max Work Phone: [facility]-Infusion Therapy - O/P Work Phone: Start: 02-18-2023 End: 02-18-2023 ambulatory Jacinto Max Other [employer] Other Start: 02-18-2023 Office outpatient ne w 45 minutes Jacinto Max [facility] Infectious Disease Start: 02-18-2023 End: 02-18-2023 Patient encounter procedure MD Jacinto Max Work Phone: [facility] Infectious Disease Work Phone: Start: 02-16-2023 End: 02-16-2023 ambulatory Gypsy Mcmahon Other [employer] Other Start: 02-16-2023 Office outpatient vi sit 15 minutes Gypsy Mcmahon [facility] Start: 02-16-2023 End: 02-16-2023 Patient encounter procedure MD Jacinto Max Work Phone: [facility] Work Phone: Start: 01-29-2023 End: 05-05-2023 ambulatory MALATHI VIEIRA [facility] Start: 01-29-2023 End: 01-29-2023 Patient encounter procedure MALATHI VIEIRA [facility] Start: 01-29-2023 End: 05-05-2023 Recurring MALATHI VIEIRA [facility] Start: 01-26-2023 End: 01-26-2023 Patient encounter procedure MALATHI VIEIRA [facility] Start: 01-26-2023 End: 01-26-2023 ambulatory MALATHI VIEIRA [facility] [employer] Other Start: 01-26-2023 Telephone encounter Hunter Palomo [facility] Start: 01-20-2023 End: 01-20-2023 ambulatory Hunter Brown Other [employer] Other Start: 01-20-2023 Telephone encounter Hunter brady [facility] Start: 01-12-2023 End: 01-12-2023 ambulatory Hunter Brown Other [employer] Other Start: 01-12-2023 Office outpatient vi sit 25 minutes Hunter Brown [facility] Start: 01-12-2023 End: 01-12-2023 Patient encounter procedure MD Jacinto Max [facility] Gastroenterology Work Phone: Start: 01-11-2023 End: 01-11-2023 ambulatory Gypsy Mcmahon Other [employer] Other Start: 01-11-2023 Telephone encounter Gypsy Mcmahon [facility] Start: 01-05-2023 End: 01-05-2023 ambulatory Gypsy Mcmahon Other [employer] Other Start: 01-05-2023 Telephone encounter Gypsy Mcmahon [facility] Start: 01-05-2023 Transitional care manage srvc 14 day discharge Gypsy Mcmahon [facility] Start: 01-05-2023 End: 01-05-2023 Patient encounter procedure MD Jacinto Max Work Phone: [facility] Work Phone: Start: 12-30-2022 End: 12-30-2022 ambulatory Malathi Velázquez Other [employer] Other Start: 12-30-2022 Telephone encounter Malathi Boss her [facility] Start: 12-28-2022 End: 12-28-2022 ambulatory Malathi Velázquez Other [employer] Other Start: 12-28-2022 Office outpatient vi sit 15 minutes Malathi Velázquez [facility] Start: 12-28-2022 End: 12-28-2022 Patient encounter procedure MD Jacinto Max Work Phone: [facility] Work Phone: Start: 12-15-2022 End: 12-15-2022 ambulatory Gypsy Mcmahon Other [employer] Other Start: 12-15-2022 Office outpatient vi sit 15 minutes Gypsy Mcmahon [facility] Start: 12-15-2022 Telephone encounter Gypsy Mcmahon [facility] Start: 12-15-2022 End: 12-15-2022 Patient encounter procedure MD Jacinto Max Work Phone: [facility] Work Phone: Start: 10-29-2022 End: 10-29-2022 ambulatory Hunter Brown Facility:[facility] Start: 09-22-2022 End: 09-22-2022 ambulatory MALATHI VIEIRA Facility:[facility] Start: 09-22-2022 End: 09-22-2022 Patient encounter procedure MALATHI VIEIRA [facility] Start: 09-10-2022 End: 09-10-2022 ambulatory Jose G Ellington Other [employer] Other Start: 09-10-2022 Nursing evaluation o f patient and report Jose G Ellington [facility] Start: 09-08-2022 End: 09-08-2022 ambulatory Hunter Brown Other [employer] Other Start: 09-08-2022 Telephone encounter Hunter Palomo [facility] Start: 09-01-2022 End: 09-01-2022 ambulatory Gypsy Mcmahon Other [employer] Other Start: 09-01-2022 Office outpatient vi sit 15 minutes Gypsy Mcmahon [facility] Start: 08-27-2022 End: 08-27-2022 ambulatory Gypsy Mcmahon Other [employer] Other Start: 08-27-2022 Telephone encounter Gypsy Mcmahon [facility] Start: 06-09-2022 End: 06-09-2022 Patient encounter procedure Marvin KWON [facility] Start: 05-27-2022 End: 05-28-2022 ambulatory MALATHI VIEIRA Facility:[facility] Start: 05-19-2022 End: 05-19-2022 Patient encounter procedure MALATHI VIEIRA [facility] Start: 05-14-2022 End: 05-14-2022 ambulatory Gypsy Mcmahon Other [employer] Other Start: 05-14-2022 Telephone encounter Gypsy Mcmahon [facility] Start: 05-11-2022 End: 05-12-[address] GYPSY MCMAHON Facility:[facility] Start: 05-01-2022 (Televisit) Televisit Gypsy Mcmahon [facility] Start: 05-01-2022 End: 05-01-2022 ambulatory Gypsy Mcmahon Other [employer] Other Start: 05-01-2022 Telephone encounter Gypsy Mcmahon [facility] Start: 04-28-2022 End: 04-29-[address] GYPSY MCMAHON Facility:[facility] Start: 04-24-2022 End: 04-24-2022 ambulatory Hunter Brown Other [employer] Other Start: 04-24-2022 Office outpatient vi sit 15 minutes Hunter Brown [facility] Gastroenterology Start: 04-16-2022 End: 04-16-2022 ambulatory Gypsy Mcmahon Other [employer] Other Start: 04-16-2022 Telephone encounter Gypsy Mcmahon [facility] Start: 04-14-2022 End: 04-14-[address] GYPSY MCMAHON Facility:[facility] Start: 04-07-2022 End: 04-07-2022 ambulatory Gypsy Mcmahon Other [employer] Other Start: 04-07-2022 Office outpatient vi sit 15 minutes Gypsy Mcmahon [facility] Start: 04-03-2022 End: 04-03-2022 ambulatory Gypsy Mcmahon Other [employer] Other Start: 04-03-2022 Telephone encounter Gypsy Mcmahon [facility] Start: 03-30-2022 End: 03-30-2022 Departed Referred MD Gypsy Mcmahon Work Phone: [facility]-Lab [facility] [place] Work Phone: Start: 03-30-2022 End: 03-30-2022 ambulatory MD Gypsy Mcmahon Work Phone: [facility] Work Phone: Start: 03-30-2022 Nursing evaluation o f patient and report Gypsy Mcmahon [facility] Start: 03-20-2022 End: 03-21-[address] GYPSY MCMAHON Facility:[facility] Start: 03-19-2022 End: 03-19-2022 ambulatory Hunter Brown Other [employer] Other Start: 03-19-2022 Telephone encounter Hunter brady [facility] Gastroenterology Start: 03-11-2022 Registered Recurring MD Gypsy Mcmahon Work Phone: [facility]-Infusion Therapy - O/P Work Phone: Start: 02-23-2022 End: 02-24-[address] GYPSY MCMAHON Facility:[facility] Start: 02-19-2022 End: 02-19-2022 ambulatory Gypsy Mcmahon Other [employer] Other Start: 02-19-2022 Telephone encounter Gypsy Mcmahon [facility] Start: 02-17-2022 End: 02-18-[address] GYPSY MCMAHON Facility:H1 Start: 02-16-2022 End: 02-16-2022 ambulatory Gypsy Mcmahon Other [employer] Other Start: 02-16-2022 Office outpatient vi sit 15 minutes Gypsy Mcmahon [facility] Start: 02-16-2022 End: 02-16-2022 Departed Referred MD Gypsy Mcmahon Work Phone: [facility] [place] Work Phone: Start: 02-11-2022 End: 02-11-2022 ambulatory Hunter Brown Other [employer] Other Start: 02-11-2022 Office outpatient vi sit 15 minutes Hunter Brown [facility] Start: 02-11-2022 Telephone encounter Hunter brady [facility] Start: 01-26-2022 End: 01-27-[address] GYPSY MCMAHON Facility:[facility]1 Start: 01-15-2022 End: 01-16-[address] GYPSY MCMAHON Facility:[facility]1 Start: 01-06-2022 End: 01-06-2022 ambulatory Hunter Brown Other [employer] Other Start: 01-06-2022 Telephone encounter Hunter brady [facility] Start: 01-05-2022 End: 01-06-2022 ambulatory CLAU NASCIMENTO [employer] Other Start: 01-05-2022 Office outpatient vi sit 25 minutes Hunter Brown [facility] Start: 12-27-2021 End: 12-27-[address] REY MONTGOMERY Facility:[facility]1 Start: 12-18-2021 End: 12-19-2021 ambulatory CLAU NASCIMENTO Facility:[facility]1 Start: 12-08-2021 End: 12-09-[address] GYPSY MCMAHON Facility:[facility]1 Start: 11-18-2021 End: 11-18-2021 ambulatory Hunter Brown Other [employer] Other Start: 11-18-2021 Telephone encounter Hunter Palomo [...] 08-18-2021 End: 08-18-2021 ambulatory Giana Villar Other [employer] Other Start: 08-18-2021 Telephone encounter Giana Villar [facility] Start: 08-12-2021 End: 08-12-[address] GYPSY MCMAHON Facility:[facility]1 Start: 04-22-2021 End: 04-22-2021 ambulatory Giana Villar Other [employer] Other Start: 04-22-2021 Telephone encounter Giana Villar [facility] Start: 03-27-2021 End: 03-27-2021 ambulatory Giana Villar Other [employer] Other Start: 03-27-2021 Office outpatient vi sit 25 minutes Giana Villar [facility] Start: 01-27-2021 End: 01-27-2021 ambulatory Giana Villar Other [employer] Other Start: 01-27-2021 Office outpatient vi sit 25 minutes Giana Villar [facility] Start: 01-27-2021 Telephone encounter Giana Jfluis [facility] Procedures Date Procedure Procedure Detail Performing Clinician Start: 02-28-2024 Arthrocentesis aspir &/inj major jt/bursa w/o us Sunny Ingram 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 Work Phone: Start: 02-28-2024 Radiologic examinati on knee 1/2 views Sunny Ingram 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 Work Phone: Start: 01-07-2024 Basic metabolic pane l calcium total Konstantin Stout MD Work Phone: Start: 01-06-2024 Basic metabolic pane l calcium total Konstantin Stout MD Work Phone: Start: 01-05-2024 Basic metabolic pane l calcium total Konstantin Stout MD Work Phone: Start: 01-05-2024 Gluc bld gluc mntr d ev cleared fda spec home use Deuce Kirkland MD Work Phone: Start: 01-04-2024 Gluc bld gluc mntr d ev cleared fda spec home use Deuce Kirkland MD Work Phone: Start: 01-04-2024 Ct abdomen & pelvis w/o contrast material Hilda Smith MD Work Phone: Start: 01-04-2024 Gluc bld gluc mntr d ev cleared fda spec home use Deuce Kirkland MD Work Phone: Start: 01-04-2024 End: 01-04-2024 Potassium serum plasma/whole blood Aroldo Burns [employer] ASSISTANT[employer]NAGER [employer] Work Phone: Start: 01-04-2024 End: 01-04-2024 Culture bacterial blood aerobic w/id isolates Hilda Smith MD Work Phone: Start: 01-04-2024 Gluc bld gluc mntr d ev cleared fda spec home use Deuce Kirkland MD Work Phone: Start: 01-04-2024 Ecg routine ecg w/le ast 12 lds trcg only w/o i&r Devorah La MD Work Phone: Start: 01-04-2024 Gluc bld gluc mntr d ev cleared fda spec home use Deuce Kirkland MD Work Phone: Start: 01-04-2024 Basic metabolic pane l calcium total Konstantin Stout MD Work Phone: Start: 01-03-2024 Gluc bld gluc mntr d ev cleared fda spec home use Deuce Kirkland MD Work Phone: Start: 01-03-2024 Gluc bld gluc mntr d ev cleared fda spec home use Deuce Kirkland MD Work Phone: Start: 01-03-2024 Culture bacterial qu anttative colony count urine Anu S Tha PA Work Phone: Start: 01-03-2024 Potassium serum plas ma/whole blood Aroldo Burns [employer] ASSISTANT-MANAGER [employer] Work Phone: Start: 01-03-2024 Gluc bld gluc mntr d ev cleared fda spec home use Deuce Kirkland MD Work Phone: Start: 01-03-2024 Gluc bld gluc mntr d ev cleared fda spec home use Deuce Kirkland MD Work Phone: Start: 01-03-2024 Basic metabolic pane l calcium total Konstantin Stout MD Work Phone: Start: 01-02-2024 End: 01-02-2024 Basic metabolic panel calcium total Konstantin Stout MD Work Phone: Start: 01-02-2024 Assay of magnesium Michael gigi Hernandez MD Work Phone: Start: 01-01-2024 Basic metabolic pane l calcium total Konstantin Stout MD Work Phone: Start: 01-01-2024 RESP ARTERIAL LINE SETUP Deuce Kirkland MD Work Phone: Start: 01-01-2024 Fluoroscopy up to 1 hour physician/qhp time Deuce Kirkland MD Work Phone: Start: 01-01-2024 End: 01-01-2024 TRANSFUSE RED BLOOD CELLS Emerson morin MD Work Phone: Start: 01-01-2024 Calcium ionized Deuce Kirkland MD Work Phone: Start: 01-01-2024 End: 01-01-2024 ENDARTERECTOMY FEMORAL Deuce Shrestha Work Phone: Start: 01-01-2024 End: 01-01-2024 Revascularization iliac artery angiop 1st vsl Deuce Kirkland MD Work Phone: Start: 12-31-2023 Antibody screen [facility] 1 Start: 12-31-2023 Basic metabolic pane l calcium total Deuce Kirkland MD Work Phone: Start: 12-31-2023 Blood typing serologic abo Deuce Kirkland MD Work Phone: Start: 12-31-2023 Urnls dip stick/tabl et rgnt auto w/o microscopy Deuce Kirkland MD Work Phone: Start: 12-30-2023 Follow-up visit Follow-up DEUCE KIRKLAND Start: 12-14-2023 Radex hip unilateral with pelvis 2-3 views Sunny Ingram NP Work Phone: Start: 11-18-2023 Adult depression scr eening assessment [...] grafts x 4 MALATHI VIEIRA Excision of sphincter of anus MALATHI VIEIRA Gallbladder structur e (body structure) MALATHI VIEIRA History of total hysterectomy MALATHI VIEIRA Knee region structur e (body structure) MALATHI VIEIRA Plan of Treatment Date Care Activity Detail Author Start: 12-31-2024 Tobacco Screening Tobacco Screening [facility] Start: 12-23-2024 Tobacco Screening Tobacco Screening [facility] Start: 11-18-2024 Adult BMI Screening Adult BMI Screening [facility] Start: 11-17-2024 Depression Screening Depression Screening [facility] Start: 11-17-2024 Tobacco Screening Tobacco Screening [facility] Start: 11-15-2024 Adult BMI Screening Adult BMI Screening [facility] Start: 11-15-2024 Tobacco Screening Tobacco Screening [facility] Start: 10-26-2024 Adult BMI Screening Adult BMI Screening [facility] Start: 10-26-2024 Tobacco Screening Tobacco Screening [facility] Start: 08-31-2024 End: 08-31-2024 Patient encounter procedure 08/31/2024 9:20 AM EDT Office Visit [facility] [address] [place] [phone] Deuce Kirkland MD [address], [address] [address] [facility] Start: 08-18-2024 End: 08-18-2024 Patient encounter procedure [facility] Start: 06-29-2024 End: 06-29-2024 Patient encounter procedure [facility] Start: 06-16-2024 Adult BMI Screening Adult BMI Screening [facility] Start: 06-16-2024 Tobacco Screening Tobacco Screening [facility] Start: 03-30-2024 End: 03-30-2024 Patient encounter procedure 03/30/2024 1:30 PM EST Office Visit [facility] [address] [place] [address] Sunny Ingram, SELF 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 [address] [place], [place] [phone] [facility] Start: 02-28-2024 End: 02-28-2024 Patient encounter procedure 02/28/2024 2:45 PM EST Office Visit [facility] [address] [place] [phone] Sunny Ingram, S[employer] 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 [address] [place] [address] Left knee pain, unspecified chronicity [facility] Comment on above: Left knee pain, unspecified chronicity Start: 02-24-2024 End: 02-23-2025 US.doppler Extremity arteries - bilateral for physiologic artery study Vas art doppler lwr bilat mult lev/PVR Vascular Ultrasound Routine 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 [email or web address] Comment on above: Expected: 02/24/2024, Expires: Start: 01-20-2024 End: 01-20-2024 Patient encounter procedure 01/20/2024 10:10 AM EST Office Visit [facility] [address] [place] [phone] Deuce Kirkland MD [address], [address] [place] [address] [facility] Start: 01-17-2024 End: 01-17-2024 Patient encounter procedure 01/17/2024 1:00 PM EST Office Visit [facility] [address] [place] [address] Sunny Ingram, GENESIS [address] [place] [address] [facility] Start: 01-01-2024 End: 01-01-2024 Admission to same day surgery center 01/01/2024 12:00 PM EST - 01/01/2024 6:00 PM EST Surgery [facility] [address] [place] [address] Deuce Kirkland MD [address] [place] [address] ENDARTERECTOMY FEMORAL (ILIOFEMORAL ENDARTERECTOMY) [facility] Comment on above: ENDARTERECTOMY FEMORAL (ILIOFEMORAL ENDA RTERECTOMY) Start: 01-01-2024 End: 01-01-2024 ENDARTERECTOMY FEMORAL [facility] Start: 01-01-2024 End: 01-01-2024 Revascularization iliac artery angiop 1st vsl [facility] Start: 01-01-2024 Subsequent hospital visit by physician 01/01/2024 12:00 PM EST Hospital Encounter [facility] [address] [place] [phone] Deuce Kirkland MD [address], [facility] [address] [place] [address] [facility] Start: 12-31-2023 End: 12-31-2023 Patient encounter procedure 12/31/2023 8:30 AM EST Procedure visit [facility] On [address] [phone] [facility] On [facility] Start: 12-30-2023 End: 12-30-2023 Patient encounter procedure 12/30/2023 1:10 PM EST Office Visit [facility] [address] [place] [address] Deuce Kirkland MD [address], [address] [place] [address] [facility] Start: 12-29-2023 End: 12-29-2023 Patient encounter procedure 12/29/2023 10:00 AM EST Appointment [facility] [address] [place] [phone] Deuce Kirkland MD [address], [facility] [address] [place] [address] [facility] Start: 12-24-2023 End: 12-24-2023 ABLATION VENOUS RADIOFREQUENCY [facility] Start: 12-24-2023 End: 12-24-2023 Admission to same day surgery center 12/24/2023 2:00 PM EST - 12/24/2023 3:30 PM EST Surgery [facility] - Surgery [address] [place] [address] Deuce Kirkland MD [address], [address] [place] [address] ABLATION VENOUS RADIOFREQUENCY-GREATER SAPHENOUS VEIN [facility] Comment on above: ABLATION VENOUS RADIOFREQUENCY-GREATER S APHENOUS VEIN Start: 12-24-2023 End: 12-24-2023 SCLEROTHERAPY LOWER EXTREMITY [facility] Start: 12-24-2023 Subsequent hospital visit by physician 12/24/2023 2:00 PM EST Hospital Encounter [facility] [address] [place] [address] Deuce Kirkland MD [address], [address] [place] [address] [facility] Start: 12-23-2023 End: 12-23-2023 ambulatory 12/23/2023 3:00 PM EST Support Visit [facility] - Pre Admit [address] [place] [address] [facility] Start: 12-22-2023 End: 12-22-2023 Patient encounter procedure 12/22/2023 3:45 PM EST Appointment [facility] [address] [place] [address] Deuce Kirkland MD [address], [address] [place] [address] [facility] Start: 12-15-2023 End: 12-14-2024 US.doppler Lower extremity vein - right Vas venous duplex lwr single right Vascular Ultrasound Routine Venous ulcer of ankle, right (CMS-HCC) Expected: 12/15/2023, Expires: 12/14/2024 [employer] Work Phone: Comment on above: Expected: 12/15/2023, Expires: Start: 12-14-2023 End: 12-14-2023 Patient encounter procedure 12/14/2023 1:00 PM EST Office Visit [facility] [address] [place] [address] Sunny Ingram, S[employer] 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 [address] [place], [place] [phone] Primary osteoarthritis of left hip; History of [...] both lower extremities with rest pain (CMS-HCC) Expected: 12/09/2023, Expires: 12/08/2024 [employer] Work Phone: Comment on above: Expected: 12/09/2023, Expires: Start: 12-09-2023 End: 12-09-2023 Patient encounter procedure 12/09/2023 10:00 AM EDT Office Visit [facility] [address] [place] [phone] Deuce Kirkland MD [address], [address] [address] [facility] Start: 11-18-2023 End: 11-18-2023 Admission to same day surgery center 11/18/2023 3:30 PM EDT - 11/18/2023 6:[address] [facility] [address] [place] [address] Deuce Kirkland MD [address], [address] [place] [address] ANGIOPLASTY ILIAC-ILIAC SHOCKWAVE INTRAVASCULAR LITHOTRIPSY & STENTING [69387 (CPT )] 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 [address] [place] [address] Deuce Kirkland MD [address], [address] [place] [address] [facility] Start: 11-18-2023 End: 11-18-2023 Patient encounter procedure 11/18/2023 9:30 AM EDT Office Visit [facility] [address] [place] [phone] Deuce Kirkland MD [address], [address] [place] [address] [facility] Start: 11-05-2023 End: 11-05-2023 Admission to same day surgery center 11/05/2023 1:30 PM EDT - 11/05/2023 3:30 PM EDT Surgery [facility] [address] [facility] [place] [address] Deuce Kirkland MD [address], [address] [place], [place] [phone] ANGIOPLASTY ILIAC Iliac shockwave intravascular lithotripsy and stenting [27341 (CPT )] [facility] Comment on above: ANGIOPLASTY ILIAC Iliac shockwave intrav ascular lithotripsy and stenting [00993 (CPT )] Start: 11-05-2023 End: 11-05-2023 Revascularization iliac artery angiop 1st vsl [facility] Start: 11-05-2023 Subsequent hospital visit by physician 11/05/2023 1:30 PM EDT Hospital Encounter [facility] [address] [place] [phone] Deuce Kirkland MD [address], 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 [employer] Start: 10-10-2023 Influenza vaccination [facility] Start: 06-17-2023 End: 06-16-2024 US.doppler Extremity arteries - bilateral for physiologic artery study Vas art doppler lwr bilat mult lev/PVR Vascular Ultrasound Routine PAD (peripheral artery disease) ([facility]) Expected: 06/17/2023, Expires: 06/16/2024 [facility] [employer] Work Phone: Comment on above: Expected: 06/17/2023, Expires: Start: 03-30-2022 Bacteria identified in Urine by Culture [facility] Start: 11-08-2018 Pneumococcal Vaccine: 65+ Years (2 of 2 - PCV) Pneumococcal Vaccine: 65+ Years (2 of 2 - PCV) [facility] Start: 2001 Fall Risk Screening Fall Risk Screening [facility] Start: 1986 Administration of varicella zoster vaccine Zoster (Shingles) Vaccine (1 of 2) [facility] [email or web address] Start: 09-29-1955 DTaP,Tdap and Td Vaccines (1 - Tdap) DTaP,Tdap and Td Vaccines (1 - Tdap) [facility] Start: 1948 Depression Screening Depression Screening [facility] Start: 1936 Medicare Annual Wellness Visit Medicare Annual Wellness Visit [facility] Bacteria identified in Blood by Aerobe culture [facility] Work Phone: Bacteria identified in Stool by Culture [facility] Bacteria identified in Urine by Culture [facility] Basic metabolic 2000 panel - Serum or Plasma Basic Metabolic Panel Lab Routine Lab max of 3 days, Daily, for lab use only until discontinued starting 01/02/2024, 6 completed [employer] Comment on above: Lab max of 3 days, Daily, for lab use on ly until discontinued starting 01/02/2024, 6 completed End: 01-04-2024 Bedside Glucose *Place/Obtain serum glucose if >500(>600 [facility]) per glucometer. Bedside Glucose *Place/Obtain serum glucose if >500(>600 [facility]) per glucometer. Point of Care Testing Routine Once for 1 Occurrences starting 01/04/2024 until 01/04/2024 [facility] Comment on above: Once for 1 Occurrences starting 01/04/20 until 01/04/2024 CBC W Auto Different ial panel - Blood CBC auto differential Lab Routine Lab max of 3 days, Daily, for lab use only until discontinued starting 01/02/2024, 6 completed [employer] Comment on above: Lab max of 3 days, Daily, for lab use on ly until discontinued starting 01/02/2024, 6 completed Elastase.pancreatic [Mass/mass] in Stool [facility] End: 01-04-2024 Electrocardiogram, 12-lead Electrocardiogram, 12-lead ECG STAT Once for 1 Occurrences starting 01/04/2024 until 01/04/2024 [facility] Work Phone: Comment on above: Once for 1 Occurrences starting 01/04/20 24 until 01/04/2024 Oxygen Therapy - Sandra ntain SpO2: 90%; *MEDICAL RADIATION TECH Guidelines for O2: Yes; Document: \[email or web address]\[email or web address]\ EPIC_Reference\Orders\Resp iratory Care Guidelines\CPG Oxygen 2022.pdf Oxygen Therapy - Maintain SpO2: 90%; *MEDICAL RADIATION TECH Guidelines for O2: Yes; Document: \[email or web address]\ep ic\EPIC_Reference\Order s\Respiratory Care Guidelines\CPG Oxygen 2022.pdf Respiratory Care Routine As Needed until discontinued starting 01/01/2024 [facility] Work Phone: Comment on above: As Needed until discontinued starting Patient referral [facility] Work Phone: [facility] Immunizations Immunization Date Immunization Notes Care Provider Fa cili 11-23-2023 Covid-19, Mrna, Lnp- s, Pf,jose-sucrose,30 Mcg/0.3ml Fall23 Deuce Kirkland MD Work Phone: [facility] 11-23-2023 influenza, high dose seasonal, preservative-free Deuce Kirkland MD Work Phone: [facility] 02-16-2023 Influenza Vaccine, Quadrivalent, Adjuvanted Deuce Kirkland MD Work Phone: [facility] 02-16-2023 influenza virus vaccine, unspecified formulation Deuce Kirkland MD Work Phone: [facility] 02-16-2022 Shingrix 50 MCG/0.5M L; Translations: [Shingrix 50 MCG/0.5ML] Hunter Brown Other [employer] Other 12-08-2022 influenza virus vaccine, unspecified formulation MALATHI DEB [facility] 01-15-2022 Influenza, High-dose , Quadrivalent Deuce Kirkland MD Work Phone: [facility] 01-15-2022 SARS-CoV-2 (COVID-19 ) [id number] MALATHI VIEIRA [facility] 01-23-2021 SARS-CoV-2 (COVID-19 ) mRNA BNT-162b2 vax MALATHI DEB [facility] 01-06-2021 Influenza Vaccine, Quadrivalent, Adjuvanted Deuce Kirkland MD Work Phone: [facility] 01-06-2021 influenza virus vaccine, unspecified formulation MALATHI DEB [facility] 03-27-2020 SARS-CoV-2 (COVID-19 ) mRNA BNT-162b2 vax MALATHI DEB [facility] 03-04-2020 SARS-CoV-2 (COVID-19 ) mRNA BNT-162b2 vax MALATHI DEB [facility] 12-06-2019 influenza virus vaccine, unspecified formulation MALATHI DEB [facility] 12-06-2019 influenza, injectabl e, quadrivalent, preservative free Deuce Kirkland MD Work Phone: [facility] 12-14-2018 influenza virus vaccine, unspecified formulation MALATHI DEB [facility] 12-14-2018 Seasonal trivalent influenza vaccine, adjuvanted, preservative free Deuce Kirkland MD Work Phone: [facility] 02-02-2018 influenza virus vaccine, unspecified formulation MALATHI DEB [facility] 02-02-2018 Seasonal trivalent influenza vaccine, adjuvanted, preservative free Deuce Kirkland MD Work Phone: [facility] 11-08-2017 pneumococcal polysaccharide vaccine, 23 valent MALATHI VIEIRA [facility] 11-02-2017 influenza virus vaccine, unspecified formulation MALATHI DEB [facility] 11-02-2017 influenza, injectabl e, quadrivalent, preservative free Sunny Ingram SEL[employer] 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 Work Phone: [facility] 12-09-2016 influenza virus vaccine, unspecified formulation MALATHI DEB [facility] 12-09-2016 influenza, injectabl e, quadrivalent, preservative free Sunny Ingram SELF 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 Work Phone: [facility] 12-02-2016 influenza virus vaccine, unspecified formulation MALATHI DEB [facility] 12-02-2016 influenza, high dose seasonal, preservative-free Deuce Kirkland MD Work Phone: [facility] 12-17-2015 influenza virus vaccine, unspecified formulation MALATHI DEB [facility] 12-17-2015 influenza, high dose seasonal, preservative-free Deuce Kirkland MD Work Phone: [facility] 10-10-2015 influenza virus vaccine, unspecified formulation MALATHI DEB [facility] 10-10-2015 influenza, injectabl e, quadrivalent, preservative free Sunny Ingram SELF 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 Work Phone: [facility] 11-19-2014 influenza virus vaccine, unspecified formulation MALATHI VIEIRA [facility] 11-19-2014 influenza, high dose seasonal, preservative-free Deuce Kirkland MD [facility] 11-09-2014 pneumococcal polysaccharide vaccine, 23 valent MALATHI VIEIRA [facility] NEGATED: Highlighted row has not occurred!01-26-2023 influenza virus vaccine, unspecified formulation MALATHI VIEIRA [facility] Payers Date Payer Category Payer Self-pay [id number] 2019 [facility] [id number]. 315 2019 [facility] Managed Care - Other [facility] [id number] 2019 Unknown [place]/PPO/TRUST [id number] 2019-Present [phone] [address] [place] [address] [id number] 4.2.7.3.708325.315 2001 Medicare [id number]. 1.13.69 3.2.7.9.865136.483182. 315 1959 Blue Cross Blue Shield [id number] 2.16.840.1.606966.19 1959 Medicare [id number] 2.16.840.1.642962.19 1936 Unknown [id number] 2.16.840.1.037042.3.57 9.2.593 1936 Unknown [id number] 2.16.840.1.362845.3.57 9.2.593 1936 Unknown [id number] 2.16.840.1.118380.3.57 9.2.593 1936 Unknown [id number] 2.16.840.1.082349.3.57 9.2.593 1936 Unknown [id number] 2.16.840.1.495922.3.57 9.2.593 1936 Unknown [id number] 2.16.840.1.576759.3.57 9.2.593 1936 Unknown [id number] 2.16.840.1.300769.3.57 9.2.593 1936 Unknown [id number] 2.16.840.1.094261.3.57 9.2.593 1936 Unknown [id number] 2.16.840.1.743075.3.57 9.2.593 1936 Unknown [id number] 2.16.840.1.272558.3.57 9.2.593 1936 Unknown [id number] 2.16.840.1.443584.3.57 9.2.593 1936 Unknown [id number] 2.16.840.1.455673.3.57 9.2.593 1936 Unknown [id number] 2.16.840.1.453196.3.57 9.2.593 1936 Unknown [id number] 2.16.840.1.363931.3.57 9.2.593 1936 Unknown [id number] 2.16.840.1.343375.3.57 9.2.593 1936 Unknown [id number] 2.840.1.970825.3.57 9.2.593 1936 Unknown [id number] 2.16840.1.395018.3.57 9.2.593 1936 Unknown [id number] 2.16.840.1.383995.3.57 9.2.593 1936 Unknown [id number] 2.16840.1.332034.3.57 9.2.593 1936 Unknown [id number] 2.840.1.395456.3.57 9.2.593 1936 Unknown [id number] 2.16.840.1.038294.3.57 9.2.593 1936 Unknown [id number] 2.16.840.1.435049.3.57 9.2.727 1936 Unknown [id number] 2.16.840.1.593009.3.57 9.2.727 1936 Unknown [id number] 2.16840.1.389565.3.57 9.2.727 1936 Unknown [id number] 2.16.840.1.233165.3.57 9.2.727 1936 Unknown [id number] 2.16.840.1.192011.3.57 9.2.1286 1936 Unknown [id number] 2.840.1.585226.3.57 9.2.1286 1936 Unknown [id number] 2.840.1.580728.3.57 9.2.128 1936 Unknown [id number] 2.840.1.758987.3.57 9.2.128 1936 Unknown [id number] 2.840.1.170956.3.57 9.2.128 1936 Unknown [id number] 2.840.1.028817.3.57 9.2.128 1936 Unknown [id number] 2.840.1.569912.3.57 9.2.128 1936 Unknown [id number] 2.840.1.985029.3.57 9.2.128 1936 Unknown [id number] 2.840.1.110583.3.57 9.2.128 1936 Unknown [id number] 2.840.1.015359.3.57 9.2.128 1936 Unknown [id number] 2.840.1.976272.3.57 9.2.128 1936 Unknown [id number] 2.840.1.709065.3.57 9.2.128 1936 Unknown [id number] 2.840.1.548072.3.57 9.2.128 1936 Unknown [id number] 2.840.1.914259.3.57 9.2.128 1936 Unknown [id number] 2.16.840.1.213499.3.57 9.2.1286 1936 Unknown [id number] 2.0.1.060608.3.57 9.2.128 1936 Unknown [id number] 2.840.1.025774.3.57 9.2.128 1936 Unknown [id number] 2.0.1.232182.3.57 9.2.128 1936 Unknown [id number] .0.1.374121.3.57 9.2.128 1936 Unknown [id number] ..1.352317.3.57 9.2.128 1936 Unknown [id number] 2.0.1.180552.3.57 9.2.128 1936 Unknown [id number] ..1.857897.3.57 9.2.128 1936 Unknown [id number] .0.1.726116.3.57 9.2.128 1936 Unknown [id number] ..1.828513.3.57 9.2.128 1936 Unknown [id number] 03.26.830.1.246051.3.57 9.2.125 1936 Unknown [id number] 03.26.830.1.392011.3.57 9.2.125 1936 Unknown [id number] 03.26.830.1.681547.3.57 9.2.125 1936 Unknown [id number] .0.1.945927.3.57 9.2.1259 Unknown [id number] .840.1.768482.3.57 9.2.531 Unknown [id number] 2.840.1.643121.3.57 9.2.531 Social History Date Type Detail Facility Unknown if ever smoked [employer] Other Start: 03-21-2020 End: 12-15-2022 Sex Assigned At [facility] Start: 1935 Sex Assigned At Female [facility] Start: 05-19-2022 End: 12-31-2023 Tobacco smoking status Ex-smoker (finding) [facility] Start: 09-22-2022 Tobacco smoking status Never [facility] Start: 11-21-2021 End: 05-05-2023 Tobacco smoking status NHIS Never smoked tobacco (finding) [facility] Start: 07-18-2022 End: 12-31-2023 Tobacco use and exposure Smokeless tobacco non-user [facility] Start: 11-05-2023 End: 01-03-2024 Alcoholic beverage intake Current drinker of alcohol (finding) [facility] Start: 03-21-2020 End: 12-15-2022 History of Social function [facility] Start: 07-18-2022 Alcohol Comment occasionally a glass of wine [facility] Start: 1935 Sex assigned at Not on file [facility] End: 12-30-1993 History of tobacco use Current smoker [facility] End: 12-30-1993 History of tobacco use Cigarette Smoker [facility] Has the [employer], [employer], [employer], or water [employer] threatened to shut off services in your home in past 12Mo No [facility] How often to you hav e a drink containing alcohol? Monthly or less [facility] How many standard drinks containing alcohol do you have on a typical day? 1 or 2 [facility] How often do you hav e 6 or more drinks on 1 occasion? Never [facility] Start: 10-27-2023 Tobacco Comment QUIT IN [address] [facility] Start: 12-31-2023 Alcohol Comment monthly [facility] Start: 09-13-2014 End: 03-23-2024 Sex Female (finding) [facility] Start: 06-17-2023 End: 10-14-2023 Alcoholic beverage intake Defer [facility] Start: 10-27-2023 Alcohol Comment OCC [facility] Medical Equipment Procedure Code Equipment Code Equipment Origin al Text Equipment Identifier Dates Graft Vsc 80cm 8 mm [place] Thnwl Propaten Hep Ptfe Rem Rng - [id number] - [id number] Start: 01-01-2024 Comment on above: Description: RIGHT F EMORAL - POPLITEAL ARTERY Incv/Patch Cv 8x .8cm N-Pyrg Tpr End Photofix Decellularized Bvn Rpl [id number] Use [id number] - [id number] Start: 01-01-2024 Comment on above: Description: RIGHT F EMORAL ARTERY Stent 7fr 135cm Vbx Ba Ppm Expandable Cath Hep Vbhn Eprsth 8 Rpl [id number] - [id number] - [id number] Start: 01-01-2024 Comment on above: Description: RIGHT I LIAC ARTERY Goals Date Patient Goal Desired Activity /State Personal health goal Comment on above: Formatting of this n ote might be different from the original. Evaluation of progress towards goal: Functional Status Date Assessment Result Facility 01-26-2023 Functional Status N/A [facility] 09-22-2022 Functional Status N/A [facility] 06-09-2022 Functional Status N/A [facility] 05-19-2022 Functional Status N/A [facility] Mental Status Date Assessment Result Facility [facility] Clinical Notes 01-27-2021 to 03-23-2024 Telephone Encounter - Margo Milton - 03/23/2024 3:49 PM ESTTelephone Encounter - Sravanthi Vieira LPN - 03/23/2024 3:49 PM ESTTelephone Encounter - Marj Kelly - 03/23/2024 3:49 PM EST Note Date & Type Note Facility 03-23-2024 Miscellaneous Notes Kiana with office is calling to see if the patient needs to continue to take Xarelto since the patient is moving around well and at a lower risk for a DVT or if she needs to continue as a routine pos top med for 6 months. Kiana can be reached at [phone] Thank you. Forwarding message to provider. Spoke directly with Dr Kirkland, patient can stop Xeralto since his iliac stent & bypass was in December. Patient to continue asp & Plavix I called Dr Mcmahon's office and spoke to Tammy to give her the update. documented in this encounter [facility] 03-23-2024 Telephone encounter Note Kiana with office is calling to see if the patient needs to continue to take Xarelto since the patient is moving around well and at a lower risk for a DVT or if she needs to continue as a routine pos top med for 6 months. Kiana can be reached at [phone] Thank you. [facility] 03-23-2024 Telephone encounter Note Forwarding message to provider. [facility] 03-23-2024 Telephone encounter Note Spoke directly with Dr Kirkland, patient can stop Xeralto since his iliac stent & bypass was in December. Patient to continue asp & Plavix I called Dr Mcmahon's office and spoke to Tammy to give her the update. [facility] 03-02-2024 Note [facility] Cardiology Clinic Note Chief Complaint: Follow up HPI: Delicia Hsu is a 88 y.o. female With a history of coronary [...] diarrhea as well as significant skin wounds. Update 03/02/2024: Doing well; denies chest pain, shortness of breath, edema, dizziness or palpitations Doing great ! Since I last saw her, she has had a number of procedures for her peripheral arterial disease with Dr. Kirkland of vascular surgery. The most recent in December 2023 including a femoropopliteal bypass. Cardiology ROS: Review of Systems All other systems reviewed and are negative. [...] DAILY DIRECTED, Disp: 90 tablet, Rfl: 3 miscellaneous medical supply (Blood Pressure Cuff) misc, 1 kit in the morning and at bedtime. (Patient not taking: Reported on 11/09/2023), Disp: 1 each, Rfl: 0 nebivolol (Bystolic) 10 mg tablet, Take 1 tablet (10 mg) by mouth once daily as directed., Disp: 90 tablet, Rfl: 3 nebivolol (Bystolic) 5 mg tablet, Take 1 tablet (5 mg) by mouth in the morning., Disp: 30 tablet, Rfl: 11 pantoprazole (ProtoNix) 40 mg EC tablet, Take 40 mg by mouth in the morning., Disp: , Rfl: simvastatin (Zocor) 40 mg tablet, simvastatin 40 mg tablet, Disp: , Rfl: spironolactone (Aldactone) 50 mg tablet, Take 50 mg by mouth in the morning., Disp: , Rfl: Last Recorded Vitals BP 155/66 HR 66 RR 16 Wt 145 O2 99% Physical Examination: GENERAL: alert and oriented x3, [...] PSYCH: appropriate mood, affect, and judgement. Investigations: 07/25/2023 Hgb 12.5, plt 288 Cr 1.4, BUN 26, K 4, eGFR 36, ALT 29, AST 23 Lipid profile 04/2021: Total cholesterol 189, HDL 73, triglycerides 101, LDL 95.8 Testing/Procedures: Segmental leg pressures and pulse volume recordings [...] Calculated ejection fraction is 71%. 3 times da (more content not included)... [facility] 02-28-2024 History of Present illness Narrative Associated Order(s): L Inj/Asp: L knee Post-Procedure Diagnose(s): Primary osteoarthritis of left knee Images from the original note were not included. HISTORY OF PRESENT ILLNESS: Delicia Hsu is an 88 y.o. @ female. (EST PT, NEW PROBLEM) LT KNEE PAIN XRAY TODAY EPIC 02/28/24 PRESENTS IN W/C TODAY, SHE WALKS WITH WALKER WHILE IN PT ONLY DUE TO RT LEG VASCULAR SURGERY. LT KNEE PAIN INTERMITTENTLY. STATES KNEE JUMPS . WORSE WHEN SHE IS IN PT FOR RT LEG. LEFT LEG FEELS UNSTEADY. USES ICE. TAKING TYL, GABAPENTIN, TRAMADOL. PT [facility] SINCE 02/05/24 WHILE RECOVERING FROM VASCULAR SURGERY RT LEG *NEW PROBLEM* LT ELBOW SWELLING SINCE A FALL IN JAN 2024. DENIES REDNESS OR WARMTH. ALLERGIES: Allergies Allergen Reactions Diphenhydramine Unknown Ezetimibe Unknown Gemfibrozil Unknown H2 Antagonists Histamine Other Reaction(s): Other, Other: See Comments it wires me it wires me Levofloxacin Nsaids Unknown Promethazine Unknown and Other Made her shake very badly Propoxyphene Unknown HOME MEDICATIONS: Current Outpatient Medications Medication Instructions acetaminophen (Tylenol) 325 MG tablet Every 6 hours acetaminophen (TYLENOL) 1,000 mg, Oral, Every 6 hours PRN alosetron (Lotronex) 0.5 MG tablet TAKE 1/2 TABLET BY MOUTH EVERYDAY FOR 30 DAYS *HOLD IF CONSTIPATED* bismuth subsalicylate (PEPTO BISMOL) 524 mg, Oral, 4 times daily before meals and nightly budesonide EC (Entocort EC) 3 MG [address] - ER 3 mg capsule,delayed,extended release cholecalciferol (Vitamin D-3) 50 MCG (1999 UT) capsule 1 tablet, Oral, Daily RT estradiol (Estrace) 0.1 MG/GM vaginal cream INSERT 1 GRAM VAGINALLY TWICE A WEEK DIRECTED loperamide (Imodium A-D) 2 MG tablet Oral, 4 times daily PRN melatonin 10 MG tablet 1 tablet, Oral, Nightly Menthol, Topical Analgesic, (Biofreeze) 4 % gel Biofreeze metoprolol succinate XL (TOPROL-XL) 50 mg, Oral, Daily RT Multiple Vitamins-Minerals (multivitamin with minerals) tablet 1 tablet, Oral, Daily pantoprazole (PROTONIX) 40 mg, Oral, Daily RT simvastatin (Zocor) 40 MG tablet take 1 tablet by Oral route every day at bedtime Oral spironolactone (Aldactone) 25 MG tablet spironolactone 25 mg tablet Vedolizumab (ENTYVIO IV) Intravenous zinc 50 mg, Oral, Daily RT REVIEW OF SYSTEMS: General: Denies fever, fatigue or weight loss Skin: Denies rash, sores or skin changes Eyes: Denies visual disturbance or pain GI: Denies indigestion or abdominal pain Neuro: Denies numbness or tingling, denies new onset paralysis Musculoskeletal: ( see note) PHYSICAL EXAM: Left Knee Exam Tenderness The patient is experiencing tenderness in the patella. Range of Motion Extension: 0 Flexion: 110 Tests Varus: negative Valgus: negative Other Erythema: absent Scars: absent Sensation: normal Pulse: present Swelling: mild Right Elbow Exam Tenderness Right elbow tenderness location: olecranon with palpation. Range of Motion Extension: normal Flexion: normal Other Erythema: absent Pulse: present Comments: Moderate sized olecranon bursitis with no signs of infection, erythema or drainage. Vitals: There is no height or weight on file to calculate BMI. IMAGING: XR knee 1 or 2 views left Imaging Result: AP and lateral views of left knee showed decreased joint space of the medial and lateral compartment joint, with bone on bone arthritis of the patellofemoral joint. Subchondral sclerosis was noted at the medial joint line surfaces as well as the patellofemoral joint. Marginal osteophytic formation was noted medially on poles of patella. There is no evidence of fracture or dislocation. 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 Primary osteoarthritis of left knee M17.12 2. Left knee pain, unspecified chronicity M25.562 XR knee 1 or 2 views left 3. Olecranon bursitis, right elbow M70.21 L Inj/Asp: L knee on 02/28/2024 3:32 PM Indications: pain Details: 21 G needle, anterolateral approach Medications: 40 mg methylPREDNISolone acetate 40 MG/ML Outcome: tolerated well, no immediate complications Site was cleaned with isopropyl alcohol Procedure, treatment alternatives, risks and benefits explained, specific risks discussed. Consent was given by the patient. PLAN: I reviewed xray findings of the left knee with the patient and discussed treatment options, answered questions. I discussed with the patient the option of an injection. I advised the patient of risks associated with an injection including a reaction to medication, infection, failure to improve and possible worsening. The patient demonstrated understanding. Patient requesting injection. Skin Cleansed with alcohol swab. Utilizing aseptic technique patient given 40mg Depomedrol was injected. Patient tolerated this well. Neurovasc intact s/p injection. Post injection care instructions discussed. I recommend patient use MCKINLEY wrap and avoid pressure on right elbow as she has olecranon bursitis. She will follow up in 1 month. If no relief consider aspiration with cortisone injection. Questions answered in laymen terms at the bedside. The diagnosis, home exercise plan and any ongoing restrictions/ recommendations reviewed. If unable to be reached in office, I recommend evaluation at nearest Emergency Room if any symptoms worsened or new symptoms develop for requiring urgent evaluation. 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 Risk factors modification.Continue wound care. 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 Risk factors modification.Continue wound care. Associated Problem(s): Critical limb ischemia of left lower extremity with rest pain (CMS-HCC) We will address the left lower extremity if she continues to have pain after the wound heals on the right side. For now she feels like the pain is tolerable she will see me sooner if it is not documented in this encounter [facility] 02-24-2024 Evaluation + Plan note Associated Problem(s): Critical limb ischemia of left lower extremity with rest pain (CMS-HCC) We will address the left lower extremity if she continues to have pain after the wound heals on the right side. For now she feels like the pain is tolerable she will see me sooner if it is not [facility] 02-24-2024 History of Present illness Narrative Images from the original note were not included. To: GYPSY MCMAHON MD HPI: Delicia Hsu is a 88 y.o. female 88-year-old lady with right lower extremity critical limb ischemia with tissue loss status post revascularization. She had iliofemoral endarterectomy iliac stenting and femoropopliteal bypass. Her wounds are healing well she had a heel wound she also she had venous ulcer. Both are healing really well. She has a normal MITCH. She is doing well from the her vascular surgery recovery standpoint. She has pain in the left lower extremity. The pain is more pronounced than before. Noninvasive testing shows moderate severe occlusive disease. We discussed waiting for the wound to the right side to heal and then reassess. We will see her in 3 to 6 months with PVR and duplex ultrasound. Review of Systems: Review of Systems Constitutional: [...] as needed for pain. 30 tablet 0 acetic acid 0.25 % irrigation Irrigate with 20 mL as directed in the morning and 20 mL before bedtime. Use 20 cc per gauze. 500 mL 12 acidophilus-pectin, citrus 25 million cell -100 mg tablet Take 1 tablet by mouth daily with breakfast. ascorbic acid, vitamin C, (VITAMIN C) 250 mg tablet Take 1 tablet (250 mg total) by mouth in the morning and 1 tablet (250 mg total) before bedtime. bismuth subsalicylate (PEPTO-BISMOL ORAL) daily as needed. [...] % (0.1 mg/gram) vaginal cream as needed. loperamide (IMODIUM A-D) 2 mg tablet Take 2 tablets (4 mg total) by mouth as needed. melatonin 10 mg tablet Take 1 tablet by mouth nightly. nebivoloL (BYSTOLIC) 5 mg tablet Take 2 tablets (10 mg total) by mouth in the morning. Indications: high blood pressure. pantoprazole (PROTONIX) 40 mg EC tablet Take 20 mg by mouth in the morning. Indications: gastroesophageal reflux disease. rivaroxaban (XARELTO) 2.5 mg tablet Take 1 tablet (2.5 mg total) by mouth in the morning and 1 tablet (2.5 mg total) before bedtime. 60 tablet 3 simvastatin (ZOCOR) 40 mg tablet Take 1 tablet (40 mg total) by mouth in the morning. Indications: excessive fat in the blood. spironolactone (ALDACTONE) 25 mg tablet Take 2 tablets (50 mg total) by mouth in the morning. Indications: high blood pressure. zinc 50 mg tablet tablet Take 1 tablet (50 mg total) by mouth in the morning. aspirin 81 mg Take 1 tablet (81 mg total) by mouth in the morning. naloxone (NARCAN) 4 mg/actuation spray,non-aerosol nasal spray Administer 1 spray (4 mg total) into alternating nostrils as needed for opioid reversal for up to 2 doses. 2 each 0 vancomycin (VANCOCIN) 125 mg capsule Take 1 capsule (125 mg total) by mouth in the morning. PREVENT UTI. (Patient not taking: Reported on 12/24/2023) No current facility-administered medications on file prior to visit. Past Medical History: Past Medical History: Diagnosis Date Anesthesia complication 2018 HAD HALLUCINATIONS FOR A FEW DAYS AFTER HIP SURGERY Arrhythmia Arthritis C. difficile diarrhea 12/2022 HOSPITALIZED, 01/2023 Cataract Cholecystitis Chronic kidney disease Colitis Coronary artery disease Critical limb ischemia of right lower extremity ([facility]) Dental disease UPPER AND LOWER DENTURE DIAZ (dyspnea on exertion) Fractures 2018 LEFT HIP GERD (gastroesophageal reflux disease) HL (hearing loss) Hyperlipidemia Hypertension Microscopic colitis PAD (peripheral artery disease) ([facility]) Peptic ulceration BLEEDING ULCER ADMITTED 2018 X13 DAYS TATYANA Rash Skin cancer REMOVED Sleep apnea No CPAP Thin skin Urinary tract infection CHRONIC, SEES ID EVERY 3 MONTHS Visual impairment Wound of ankle RIGHT SINCE 07/2023 Past Surgical History: Past Surgical History: Procedure Laterality Date ABDOMINAL SURGERY ANGIOGRAM EXTREMITY LOWER Right 01/01/2024 Performed by Deuce Kirkland MD at [facility] SPECIAL PROC ANGIOPLASTY ILIAC STENT PLACEMENT Right 01/01/2024 Performed by Deuce Kirkland MD at [facility] SPECIAL PROC ANGIOPLASTY ILIAC-ILIAC SHOCKWAVE INTRAVASCULAR LITHOTRIPSY Right 11/18/2023 Performed by Deuce Kirkland MD at [facility] SPECIAL PROC ARTHROSCOPY SHOULDER W/ OPEN ROTATOR CUFF REPAIR Left 2011 BOVINE PATCH ANGIOPLASTY CUTDOWN FEMORAL Right 01/01/2024 Performed by Deuce Kirkland MD at [facility] SPECIAL PROC BOVINE PATCH ANGIOPLASTY ILEOFEMORAL Right 01/01/2024 Performed by Deuce Kirkland MD at [facility] SPECIAL PROC BYPASS ARTERY FEMORAL BELOW KNEE POPLITEAL W/ VEIN PATCH/ HIGH GSV LIGATION AND HARVEST Right 01/01/2024 Performed by Deuce Kirkland MD at [facility] SPECIAL PROC CARDIAC SURGERY CATARACT EXTRACTION CHOLECYSTECTOMY N/A 2008 CORONARY ARTERY BYPASS GRAFT 1998 x 5 ENDARTERECTOMY FEMORAL AND ILIOFEMORAL ENDARTERECTOMY Right 01/01/2024 Performed by Deuce Kirkland MD at [facility] SPECIAL PROC EYE SURGERY HERNIA REPAIR N/A 03/2012 HIP FRACTURE SURGERY Left 05/2017 HYSTERECTOMY N/A JOINT REPLACEMENT lower ext angiogram Bilateral 01/07/2022 Performed by Taryn Belle MD at [facility] CARDIAC CATH LABS SCLEROTHERAPY LOWER EXTREMITY Right 12/24/2023 Performed by Deuce Kirkland MD at [facility] TOTAL HIP ARTHROPLASTY Left 2019 VASCULAR SURGERY Angiogram Social and Family History: Social History Socioeconomic History Marital status: Spouse name: Not on file Number of children: Not on file Years of education: Not on file Highest education level: Not on file Occupational History Not on file Tobacco Use Smoking status: Former Current packs/day: 0.00 Types: Cigarettes Quit date: 12/30/1993 Years since quittin.1 Smokeless tobacco: Never Tobacco comments: QUIT IN 1989 Vaping Use Vaping status: Never Used Substance and Sexual Activity Alcohol use: Yes Alcohol/week: 1.0 standard drink of alcohol Types: 1 Glasses of wine per week Comment: monthly Drug use: Never Sexual activity: Defer Other Topics Concern Not on file Social History Narrative Not on file Social Drivers of Health Financial Resource Strain: Low Risk (11/18/2023) Overall Financial Resource Strain (CARDIA) Difficulty of Paying Living Expenses: Not hard at all Food Insecurity: No Food Insecurity (02/24/2024) Hunger Screening Food Insecurity - Worry: Never True Food Insecurity - Inability: Never True Transportation Needs: No Transportation Needs (01/02/2024) PRAPARE - Transportation Lack of Transportation (Medical): No Lack of Transportation (Non-Medical): No Physical Activity: Not on file Stress: Not on file Social Connections: Not on file Interpersonal Safety: Not At Risk (01/02/2024) Humiliation, Afraid, Rape, and Kick questionnaire Fear of Current or Ex-Partner: No Emotionally Abused: No Physically Abused: No Sexually Abused: No Housing Instability: Low Risk (01/02/2024) Housing Instability Housing Instability: No Family History Problem Relation Age of Onset Cerebral aneurysm Mother Heart failure Father Cancer Sister Cancer Brother Anesthesia problems Neg Hx Recent Labs: Recent and relative labs were reviewed and interpreted and contributed to the assessment and plan below. Vitals: BP 132/52 (BP Site: Left Arm, BP Postition: Sitting, BP CUFF SIZE: M (9-13 inches)) Pulse 72 Temp 36.5 C (97.7 F) (Temporal) Resp 18 Ht 177 cm (5' 9.69 ) Wt 68 kg (150 lb) BMI 21.72 kg/m Body mass index is 21.72 kg/m . Physical Exam: Physical Exam Constitutional: [...] content normal. Judgment: Judgment normal. 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 Risk factors modification.Continue wound care. Critical limb ischemia of left lower extremity with rest pain (CMS-HCC) Current Assessment & Plan We will address the left lower extremity if she continues to have pain after the wound heals on the right side. For now she feels like the pain is tolerable she will see me sooner if it is not Delicia was seen today for art doppler lwr bilat mult lev/pvr completed on 12/21/23. 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 While intending to generate a timely document that accurately reflects the content of the visit, no guarantee can be provided that every grammatical or spelling mistake has been or will be identified or corrected. Thank you for your understanding. documented in this encounter [facility] 02-21-2024 Evaluation note Diagnosis Onset Date Resolution Microscopic colitis acute Janua ry 2024 1:24pm [facility] Work Phone: [phone] History of Present illness Narrative* Deuce Kirkland MD - 01/20/2024 10:10 AM EST VASCULAR SURGERY NOTE HPI Delicia Hsu is a 88 y.o. female comes in for post op evaluation after undergoing right lower extremity revascularization with iliac stenting in the femoral endarterectomy and a fem-pop bypass. She is doing very well. Of note she has venous ulcer in the right lower extremity status post injection s clerotherapy as well. She has not Unna boot. I removed her stitches today in the office.. She is recovering well. On exam , wound is clean, dry and intact. No signs or symptoms of infection. Pain appears we will controlled. Assessment There are no diagnoses linked to this encounter. Plan Plan Delicia Hsu will call with any changes or worsening of symptoms. Follow up in a month with PVR and duplex ultrasound. Also I advised on shinto in the strict follow [facility] of right foot and leg wounds.. [facility] Nurse Note* Eleanor Soto RN - 01/07/2024 5:26 PM EST Report called to Luli Benítez. Name and number provided for any further questions. [facility] Nurse Note* Eleanor Soto RN - 01/07/2024 5:26 PM EST Report called to Luli Benítez. Name and number provided for any further questions. documented [facility] Hospital course Narrative* Aroldo Purvisubowski, GRANTS AND CONTRACTS ASSISTANT-MANAGER COSMETICS - 01/07/2024 1:30 PM EST HOSPITAL DISCHARGE SUMMARY Patient ID: Delicia Hsu Acct: [id number] Patient's PCP: GYPSY MCMAHON MD Admit Date: 01/01/2024 Discharge Date: Length of Stay: 6 Days Admitting Physician: Deuce Kirkland MD Discharge Physician: Deuce Kirkland MD Discharge Diagnoses: Patient Active Problem List Diagnosis Date Noted Encounter for therapeutic drug monitoring 12/15/2023 Venous ulcer of ankle, right ([facility] 12/09/2023 Chronic ulcer of lower extremity ([facility]) 11/18/2023 Non-pressure chronic ulcer of right lower leg, limited to breakdown of skin ([facility]) 11/18/2023 Chronic ulcer of right heel ([facility]) 11/18/2023 Gastroesophageal reflux disease 11/18/2023 Immunocompromised state ([facility]) 11/18/2023 Ingrown nail 11/18/2023 Non-pressure chronic ulcer of calf with fat layer exposed ([facility]) 11/18/2023 Peripheral vascular disease ([facility]) 11/18/2023 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 ([facility]) 11/18/2023 Critical limb ischemia of both lower extremities with rest pain ([facility]) 11/18/2023 Anemia 11/09/2023 C. 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 ([facility]) 10/14/2023 Venous ulcer of right leg ([facility]) 10/14/2023 Venous insufficiency (chronic) (peripheral) 11/11/2022 Arteriosclerosis of coronary artery 11/02/2022 Arthritis of right knee 11/02/2022 Internal derangement of right knee 11/02/2022 Complete tear of right rotator cuff 11/02/2022 Essential hypertension 11/02/2022 Hip bursitis, left 11/02/2022 Primary osteoarthritis of left hip 11/02/2022 Other abnormalities of gait and mobility 11/02/2022 Osteoarthritis of hip 06/30/2022 PAD (peripheral artery disease) ([facility]) 01/06/2022 Closed fracture of neck of femur ([facility]) 06/07/2017 Past Medical History: Diagnosis Date Anesthesia complication 2018 HAD HALLUCINATIONS FOR A FEW DAYS AFTER HIP SURGERY Arrhythmia Arthritis C. difficile diarrhea 12/2022 HOSPITALIZED, 01/2023 Cataract Cholecystitis Chronic kidney disease Colitis Coronary artery disease Critical limb ischemia of right lower extremity ([facility]) Dental disease UPPER AND LOWER DENTURE DIAZ (dyspnea on exertion) Fractures 2018 LEFT HIP GERD (gastroesophageal reflux disease) HL (hearing loss) Hyperlipidemia Hypertension Microscopic colitis PAD (peripheral artery disease) ([facility]) Peptic ulceration BLEEDING ULCER ADMITTED 2017 X13 DAYS TATYANA Rash Skin cancer REMOVED Sleep apnea No CPAP Thin skin Urinary tract infection CHRONIC, SEES ID EVERY 3 MONTHS Visual impairment Wound of ankle RIGHT SINCE 07/2023 The patient was seen and examined on day of discharge and this discharge summary is in conjunction with any daily progress note from day of discharge. Code Status: Code Status Information Code Status Prior Summary of Hospital Course: Delicia Hsu is a 88 y.o. female who has significant past medical history of peripheral vascular disease and venous insufficiency s/p admitted 01/01/2024 s/p right iliofemoral endarterectomy + patch angioplasty + iliac stent + fem-pop bypass 12/31. Postoperative hospital stay was complicated by UTI. She has a Beckman catheter that will remain in place per Urology until her follow up appointment in office with them due to immobility. Infectious Disease was also consulted due to frequent urinary tract infections that are managed by infectious disease doctor outside ofthe hospital. They recommended oral Keflex until 01/10/2024. She will continue daily dressing changes to her open right lower extremity wound with ascitic acid soaked gauze wrapped with Kerlix and Mckinley. She will also continue Adaptic wrapped with Kerlix and Mckinley on her right medial thigh. She will start taking Xarelto 2.5 mg. Patient was accepted at [facility]. Transported set up today for 5:00 p.m. The above is only intended to summarize the hospital course. Please see complete medical record forfurther details. Consults: Infectious Disease ,urology Significant Diagnostic Studies: CT abdomen and pelvis without contrast Result Date: 01/04/2024 Narrative: CLINICAL INFORMATION: Sepsis. TECHNIQUE: CT Abdomen and Pelvis without intravenous contrast. All CT scans at this facility use dose modulation, iterative reconstruction, and/or weight based dosing when appropriate to reduce radiation dose to as low as reasonably achievable. COMPARISON: No relevant prior studies available. FINDINGS: CT of the abdomen and pelvis without contrast demonstrate that there are bilateral pleural effusions, greater on the right, that are likely too small to consider thoracentesis. Some patchy airspace disease is present at the left lung base and, to a lesser extent, the right lung base. They are associated with air bronchograms. Coronary artery and arterial calcification is present. Some gas in the subcutaneous tissues of the right lower quadrant may bedue to prior injection. 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 The liver, cholecystectomy clips, spleen, pancreas, and adrenal glands are grossly unremarkable. The common bile ductmay be enlarged. If clinically indicated, ultrasound may be useful. Dense calcification is present within the iliac vessels. A stent is present within the right superficial femoral artery. There is no free intraperitoneal air, free intraperitoneal fluid, or obvious pelvic abscess.. There are edematous changes within the medial right proximal thigh, which is swollen. Small bubbles of gas are present within the medial swollen muscles. Deep venous thrombosis cannot be assessed. There is no obviousfluid collection. There are bilateral renal cysts, much larger on the left. A small calcification in the right renal hilum measures 2 mm and may be within a vessel. IMPRESSION: * There is swelling ofthe right thigh with edema or blood within the subcutaneous tissues medially and also swelling and small bubbles of gas within the medial right proximal thigh musculature. Please correlate for hemorrhage from the recent 01/01/2024 vascular surgery procedure. Doppler ultrasound may be useful to exclude deep venous thrombosis in this swollen lower extremity. * There may be enlargement of the commonbile duct status post cholecystectomy. If further evaluation is clinically indicated, liver function test and possible right upper quadrant ultrasound may be useful. * There is no obvious abscess or other inflammatory change in the abdomen or pelvis Finalized by Valentina Gabriel 01/04/2024 4:21 PM Fluoroscopy track vascular operative Result Date: 01/01/2024 Narrative: Please refer to the vascular OP note for a dictation on this exam. Vas art doppler lwr bilat mult lev/PVR Result Date: 12/22/2023 Narrative: Previous: Previous lower extremity arterial physiological exam performed: 06/23/2023; Highest TBI: Right: 0.19; Left: 0.24. Evidence of vessel incompressibility. Right: Mildly abnormal thigh, moderately abnormal calf and flatline ankle level PVR waveform contour. No calf waveform augmentation noted. PT MITCH is unobtainable due to absent CW Doppler; DP MITCH is 0.23. TBI is not available due to flatline PPG. Hyperemic common femoral, and Monophasic popliteal and DP CW Doppler waveforms. Absent PT CW Doppler waveforms. Left: Mildly abnormal thigh, moderately abnormal calf and ankle levelPVR waveform contour. No calf waveform augmentation noted. Audible PT and DP arterial Doppler signals despite occlusive cuff pressures exceeding >250mmHg. TBI is not available due to flatline PPG.Hyperemic common femoral, Monophasic popliteal, PT and DP CW Doppler waveforms. Conclusions: BILATERAL: Multilevel arterial disease (common femoral artery or above with femoropopliteal and/or tibioperoneal); MITCH consistent with severe arterial disease.When compared to previous report no significantchanges were noted. X-ray hip left 2-3 views with or without pelvis Result Date: 12/21/2023 Narrative: Imaging Result: 12/14/2023: AP and lateral of left hip showed acceptable position and alignment of left total hip arthroplasty. There was no evidence of loosening of the acetabular cup or femoral stem. Femoral head was well centered in the acetabular liner without evidence of asymmetric or accelerated wear. There was no gross evidence of fracture and/or dislocation. Impression: Unremarkable left total hip arthroplasty. Sunny Ingram APRN-LIS Treatments: As noted above Disposition: Discharge to half-way Discharge Condition: good. Discharge Instructions: Take all medications as prescribed, keep all follow-up appointments Follow Up: cheduled Outpatient Follow Up: Future Appointments Date Time Provider Department Center 01/20/2024 10:10 AM Deuce Kirkland MD [facility] 06/29/2024 10:20 AM De[facility] Kirk[facility] Follow-up Information RUSS YARBROUGH MD Follow up. Specialty: Urology Contact information: [address] [facility] [address] GYPSY MCMAHON MD . Specialty: Family Medicine Contact information: [address] [facility] [address] Scheduled Appointments Jan 20, 2024 10:10 AM (Arrive by 9:55 AM) POST OPERATION VISIT with MD Madeline Frost [facility] Vascular Surgery ([facility]) [address] [place] [phone] At the time of your visit please be aware of the following COVID-19 information: If you develop a new cough, fever, or shortness of breath, please call before your appointment. Please plan to arrive at least 15 minutes earlier than your appointment time as screening and registration may take longer than anticipated. Please consider the [employer]-in to pre-register and make your co-payment before your visit. This will reduce your registration time. Please be aware that the [facility] facility you are visiting may require you to wear a mask. It will not be unusual if you find that masking is required in some locations and not required in other locations. The determination is made based on the amount of COVID transmission and infection rate in the community where the facility is located. Please be prepared to wear a mask if the facility you are visiting requires masking. Masks are available upon entry into the facility; however, it is best to bring your own mask and put it on before entering the facility. If wearing a mask is not possible due to an underlying health condition, please work with your care team on an alternate plan before your scheduled appointment. June 29, 2024 10:20 AM (Arrive by 10:05 AM) ESTABLISHED PATIENT with MD Madeline Frost [facility] Vascular Surgery ([facility]) [address] [place] [phone] At the time of your visit please be aware of the following COVID-19 information: If you develop a new cough, fever, or shortness of breath, please call before your appointment. Please plan to arrive at least 15 minutes earlier than your appointment time as screening and registration may take longer than anticipated. Please consider the [employer]-in to pre-register and make your co-payment before your visit. This will reduce your registration time. Please be aware that [facility] you are [facility] may require you to wear a mask. It will not be unusual if you find that masking is required in some locations and not required in other locations. The determination is made based on the amount of COVID transmission and infection rate in the community where the facility is located. Please be prepared to wear a mask if the facility you are visiting requires masking. Masks are available upon entry into the facility; however, it is best to bring your own mask and put it on before entering the facility. If wearing a mask is not possible due to an underlying health condition, please work with your care team on an alternate plan before your scheduled appointment. With primary care provider, GYPSY MCMAHON MD, as needed Discharge Medications: Medication List START taking these medications Instructions Last Dose Given Next Dose Due acetic acid 0.25 % irrigation Irrigate with 20 mL as directed in the morning and 20 mL before bedtime. Use 20 cc per gauze. CEPHalexin 500 mg capsule Commonly known as: KEFLEX Take 1 capsule (500 mg total) by mouth in the morning and 1 capsule (500 mg total) at noon and 1 capsule (500 mg total) in the evening and 1 capsule (500 mg total) before bedtime. Do all this for 10 doses. rivaroxaban 2.5 mg tablet Commonly known as: XARELTO Take 1 tablet (2.5 mg total) by mouth in the morning and 1 tablet (2.5 mg total) before bedtime. CONTINUE taking these medications Instructions Last Dose Given Next Dose Due acetaminophen 500 mg tablet Commonly known as: TYLENOL EXTRA STRENGTH Take 2 tablets (1,000 mg total) by mouth every 6 (six) hours as needed for pain. acidophilus-pectin, citrus 25 million cell -100 mg tablet Take 1 tablet by mouth daily with breakfast. ascorbic acid (vitamin C) 250 mg tablet Commonly known as: VITAMIN C Take 1 tablet (250 mg total) by mouth in the morning and 1 tablet (250 mg total) before bedtime. aspirin 81 mg Take 1 tablet (81 mg total) by mouth in the morning. budesonide EC 3 mg 24 hr capsule Commonly known as: ENTOCORT EC Take 1 capsule (3 mg total) by mouth in the morning. clopidogreL 75 mg tablet Commonly known as: PLAVIX Take 1 tablet (75 mg total) by mouth in the morning. Indications: treatment to prevent a heart attack. D3-50 CHOLECALCIFEROL ORAL Take 1 tablet by mouth in the morning. estradioL 0.01 % (0.1 mg/gram) vaginal cream Commonly known as: ESTRACE as needed. loperamide 2 mg tablet Commonly known as: IMODIUM A-D Take 2 tablets (4 mg total) by mouth as needed. melatonin 10 mg tablet Take 1 tablet by mouth nightly. naloxone 4 mg/actuation spray,non-aerosol nasal spray Commonly known as: NARCAN Administer 1 spray (4 mg total) into alternating nostrils as needed for opioid reversal for up to 2doses. nebivoloL 5 mg tablet Commonly known as: BYSTOLIC Take 2 tablets (10 mg total) by mouth in the morning. Indications: high blood pressure. pantoprazole 40 mg EC tablet Commonly known as: PROTONIX Take 20 mg by mouth in the morning. Indications: gastroesophageal reflux disease. PEPTO-BISMOL ORAL daily as needed. TAKES 3 TABS MORNING AND 3 TABS NIGHTLY simvastatin 40 mg tablet Commonly known as: ZOCOR Take 1 tablet (40 mg total) by mouth in the morning. Indications: excessive fat in the blood. spironolactone 25 mg tablet Commonly known as: ALDACTONE Take 2 tablets (50 mg total) by mouth in the morning. Indications: high blood pressure. zinc 50 mg tablet tablet Take 1 tablet (50 mg total) by mouth in the morning. ASK your doctor about these medications Instructions Last Dose Given Next Dose Due vancomycin 125 mg capsule Commonly known as: VANCOCIN Take 1 capsule (125 mg total) by mouth in the morning. PREVENT UTI. Where to Get Your Medications These medications were sent to [facility] [address] [facility] [facility] [id number] acetic acid 0.25 % irrigation CEPHalexin 500 mg capsule rivaroxaban 2.5 mg tablet Discharge Activity Level: As tolerated Discharge Diet: Regular texture Physical Exam at Discharge Patient overall is feeling better. She was not appear to be in any acute distress without any acuteevents overnight. She has been afebrile without any signs of significant infection or sepsis. We will continue with her dressing changes. Patient has had a bowel movement. She was overall appropriatefor discharge. Her and her daughter have no further concerns or questions at this time. Patient has a follow up appointment with Dr. Kirkland on 01/20/2024 at 10:10 a.m. Time Spent on discharge is more than 30 minutes in the examination, evaluation, counseling and review of medications and discharge plan. ER Brown 01/07/24 1340 XAVIER Brown 01/07/24 1341 documented in [facility] Plan of care note * Plan of Care - Eleanor Soto RN - 01/07/2024 1:00 PM EST Problem: Pain Goal: Patient goal is pain score less than 4, able to rest, and participant in treatment plan as appropriate Description: INTERVENTIONS: 1. Encourage patient or legal national account representative to report early pain and ask for pain medicine when needed 2. Assess pain using appropriate pain scale and include the scale used when documenting 3. Administer analgesics based on type and severity of pain and evaluate response within appropriate time frame 4. Implement non-pharmacological measures as appropriate and evaluate response 5. Consider cultural and social influences on pain and pain management 6. Notify LIP if interventions ineffective or patient reports new pain 7. Monitor vital signs including pulse ox, end-tidal CO2 based on pain intervention 8. Reassess pain per policy 9. Teach patient or legal national account representative interventions for comforting Outcome: Progressing Note: Evaluation of progress towards goal: Patient rating pain 10/10. PRN pain medication availableupon request. Will continue to monitor. Problem: Safety Goal: Patient will be injury free during hospitalization Description: INTERVENTIONS: 1. Assess patient's risk for falls and implement fall prevention plan of care per policy 2. Provide and maintain a safe environment 3. Proper use of double Identifiers 4. Medication administration using the 5 rights 5. Hand hygiene 6. Specimens are labeled at the bedside 7. Instruct patient/ patient national account representative about use of safety devices 8. Include patient/ patient national account representative in decisions related to safety Outcome: Progressing Note: Evaluation of progress towards goal: Patient free of injury. Fall precautions in place. Call light within reach. Patient alert and oriented. Problem: Infection Goal: Absence of infection during hospitalization Description: Interventions: 1. Assess and monitor for signs and symptoms of infection 2. Monitor lab/diagnostic results 3. Monitor all insertion sites i.e., indwelling lines, tubes and drains 4. Monitor endotracheal (as able) and nasal secretions for changes in amount and color 5. Administer medications as ordered 6. Instruct and encourage patient and family to use good hand hygiene technique 7. Identify and instruct patient/patient national account representative in use of appropriate isolation precautionsfor identified infection/symptoms 8. Provide and discuss with patient/patient national account representative on educational MDRO sheet 9. Encourage and monitor nutritional status daily and consult supervisor loading if indicated 10. Implement neutropenic guidelines as needed 11. Review exposure to history of communicable disease and recent travel history on admission 12. Encourage annual influenza vaccine 13. Encourage pneumonia vaccine Outcome: Progressing Note: Evaluation of progress towards goal: Patient afebrile. Hand hygiene encouraged. WBC WNL. OralKeflex. Will continue to monitor. Problem: Knowledge Deficit Goal: Patient/patient national account representative demonstrates understanding of disease process, treatment plan,medications, and discharge instructions Description: INTERVENTIONS 1. Complete learning assessment and assess knowledge base 2. Provide teaching at level of understanding 3. Provide teaching via preferred learning method(s) Outcome: Progressing Note: Evaluation of progress towards goal: Patient plan for continued wound care per orders. Discharge later today. Problem: Discharge Planning Goal: Discharge to post-acute care, other facility, or home with appropriate resources Description: Patient's goal is: snf INTERVENTIONS 1. Conduct assessment to determine patient/family and health care team treatment goals, and need for post-acute services based on payer coverage, community resources, and patient preferences, and barriers to discharge 2. Coordinate with Social work, Care Navigation, and Utilization Review to arrange appropriate level of services according to patient's needs based on patient preference and payer coverage in collaboration with the physician and health care team 3. Address psychosocial, clinical, and financial barriers to discharge as identified in assessment in conjunction with the patient/family and health care team 4. Consult appropriate ancillary services (i.e.. PT/OT/ST, etc) as needed 5. Communicate with and update the patient/family, physician, and health care team regarding progress on the discharge plan 6. Identify discharge learning needs (meds, wound care, etc). 7. Arrange for needed discharge transportation as appropriate Outcome: Progressing Note: Evaluation of progress towards goal: Patient plans to discharge to SNF later today. Problem: Potential for Compromised Skin Integrity Goal: Skin integrity is maintained or improved Description: Patient's goal is: INTERVENTIONS 1. Perform initial skin assessment on admission and as needed 2. Turn patient every 2 hours and PRN 3. Relieve pressure to bony prominences 4. Avoid shearing 5. Keep skin clean and dry 6. Alternate a full bath with partial baths for elderly 7. Apply lotion/moisturizer on skin 8. Monitor patient's hygiene practices 9. Float heels 10. Collaborate with interdisciplinary team and initiate plans and interventions as needed Outcome: Progressing Note: Evaluation of progress towards goal: wound care per orders. Ambulation and repositioning encouraged. Goal: Patient's nutritional intake is adequate Description: Patient's goal is: INTERVENTIONS 1. Assess and monitor food intake and supplements, patient food preferences, nausea, vomiting, labs, oral cavity (gums, teeth, tongue, mucosa), proper denture fit, and cultural beliefs 2. Monitor for signs of hypoglycemia and hyperglycemia 3. Collaborate with interdisciplinary team and initiate plan and interventions as ordered 4. Monitor patient's weight 5. Assist patient with meals/food selection 6. Assist patient with eating 7. Allow adequate time for meals 8. Provide pleasant environment during mealtime 9. Increase social contact during mealtimes 10. Plan activities to conserve energy 11. Encourage/perform oral hygiene as appropriate 12. Encourage patient to take dietary supplement as ordered 13. Collaborate with clinical supervisor loading 14. Include patient/ patient's national account representative in decisions related to nutrition Outcome: Progressing Note: Evaluation of progress towards goal: Patient intake fair on regular diet. Problem: Urinary Incontinence Goal: Perineal skin integrity is maintained or improved Description: INTERVENTIONS 1. Assess genitourinary system, perineal skin, labs (urinalysis), and history of incontinence to include past management, aggravating, and alleviating factors 2. Keep skin clean and dry 3. Apply skin protectant 4. Develop skin care regimen 5. Provide privacy when changing patients incontinence device to maintain their dignity 6. Consider placing an indwelling catheter 7. Collaborate with interdisciplinary team and initiate plans and interventions as needed Outcome: Progressing Note: Evaluation of progress towards goal: Beckman catheter maintained and patent. Problem: Moderate - High Risk Fall Score Description: Tamayo Fall Score of =/> 25 or indicated by [facility] Assessment Goal: Patient should be free from fall Description: Interventions: 1. Combes to environment 2. Hourly rounds addressing the 4 P's (Pain, Positioning, Possessions, Potty) 3. Clear area of hazards (spills, clutter, electrical cords, unnecessary equipment) 4. Place equipment (bed & TV controls, call light, phone, urinal) within reach 5. Encourage patient to wear glasses and hearing aides as appropriate 6. Maintain bed in lowest position 7. Lock wheels on bed/wheelchair 8. Provide adequate lighting, including night light 9. Assess need for additional bedding, food/fluids, pain med's prior to sleep/routinely 10. Provide gripper slippers or personal non-skid footwear 11. Teach patient and patient national account representative to maintain environment for safety and engage in all aspects of fall prevention program 12. Remind patient to call for help before getting out of bed 13. Initiate bed/chair/exit alarms supportive devices as appropriate, (chair wedge, no-skid floor mat, raised edge mattress, hip protectors) 14. Locate patient bed assignment for optimal visualization 15. Evaluate and identify Safe Patient Handling Equipment needs 16. Provide supervision when out of bed or chair 17. Utilize gait belt as needed to assist with ambulation 18. Place adaptive equipment (cane, walker) within reach 19. Request patient national account representative bring adaptive equipment/mobility aids from home or obtain and provide as needed 20. Consult pharmacy regarding effects of med's affecting mobility, cognition, and alternatives 21. Obtain physician order for PT if risk factors associated with mobility are present 22. Obtain physician order for OT as appropriate 23. Utilize diversional activities 24. Educate patient and patient national account representative how to maintain a safe environment during visitationtimes (notify nurse prior to leaving bedside) 25. Consider appropriateness of medical or non-medical interpreter 26. Set up voiding schedule as appropriate (every 2 hours) Outcome: Progressing Note: Evaluation of progress towards goal: Patient free of fall. Non-slip socks on. Bed locked and lowest position. 2/4 side rails raised. Call light within reach. Patient alert and oriented. Will continue to monitor. [id number] Miscellaneous Notes* Plan of Care - Eleanor Soto RN - 01/07/2024 1:00 PM EST Problem: Pain Goal: Patient goal is pain score less than 4, able to rest, and participant in treatment plan as appropriate Description: INTERVENTIONS: 1. Encourage patient or legal national account representative to report early pain and ask for pain medicine when needed 2. Assess pain using appropriate pain scale and include the scale used when documenting 3. Administer analgesics based on type and severity of pain and evaluate response within appropriate time frame 4. Implement non-pharmacological measures as appropriate and evaluate response 5. Consider cultural and social influences on pain and pain management 6. Notify LIP if interventions ineffective or patient reports new pain 7. Monitor vital signs including pulse ox, end-tidal CO2 based on pain intervention 8. Reassess pain per policy 9. Teach patient or legal national account representative interventions for comforting Outcome: Progressing Note: Evaluation of progress towards goal: Patient rating pain 10/10. PRN pain medication availableupon request. Will continue to monitor. Problem: Safety Goal: Patient will be injury free during hospitalization Description: INTERVENTIONS: 1. Assess patient's risk for falls and implement fall prevention plan of care per policy 2. Provide and maintain a safe environment 3. Proper use of double Identifiers 4. Medication administration using the 5 rights 5. Hand hygiene 6. Specimens are labeled at the bedside 7. Instruct patient/ patient national account representative about use of safety devices 8. Include patient/ patient national account representative in decisions related to safety Outcome: Progressing Note: Evaluation of progress towards goal: Patient free of injury. Fall precautions in place. Call light within reach. Patient alert and oriented. Problem: Infection Goal: Absence of infection during hospitalization Description: Interventions: 1. Assess and monitor for signs and symptoms of infection 2. Monitor lab/diagnostic results 3. Monitor all insertion sites i.e., indwelling lines, tubes and drains 4. Monitor endotracheal (as able) and nasal secretions for changes in amount and color 5. Administer medications as ordered 6. Instruct and encourage patient and family to use good hand hygiene technique 7. Identify and instruct patient/patient national account representative in use of appropriate isolation precautionsfor identified infection/symptoms 8. Provide and discuss with patient/patient national account representative on educational MDRO sheet 9. Encourage and monitor nutritional status daily and consult supervisor loading if indicated 10. Implement neutropenic guidelines as needed 11. Review exposure to history of communicable disease and recent travel history on admission 12. Encourage annual influenza vaccine 13. Encourage pneumonia vaccine Outcome: Progressing Note: Evaluation of progress towards goal: Patient afebrile. Hand hygiene encouraged. WBC WNL. OralKeflex. Will continue to monitor. Problem: Knowledge Deficit Goal: Patient/patient national account representative demonstrates understanding of disease process, treatment plan,medications, and discharge instructions Description: INTERVENTIONS 1. Complete learning assessment and assess knowledge base 2. Provide teaching at level of understanding 3. Provide teaching via preferred learning method(s) Outcome: Progressing Note: Evaluation of progress towards goal: Patient plan for continued wound care per orders. Discharge later today. Problem: Discharge Planning Goal: Discharge to post-acute care, other facility, or home with appropriate resources Description: Patient's goal is: snf INTERVENTIONS 1. Conduct assessment to determine patient/family and health care team treatment goals, and need for post-acute services based on payer coverage, community resources, and patient preferences, and barriers to discharge 2. Coordinate with Social work, Care Navigation, and Utilization Review to arrange appropriate level of services according to patient's needs based on patient preference and payer coverage in collaboration with the physician and health care team 3. Address psychosocial, clinical, and financial barriers to discharge as identified in assessment in conjunction with the patient/family and health care team 4. Consult appropriate ancillary services (i.e.. PT/OT/ST, etc) as needed 5. Communicate with and update the patient/family, physician, and health care team regarding progress on the discharge plan 6. Identify discharge learning needs (meds, wound care, etc). 7. Arrange for needed discharge transportation as appropriate Outcome: Progressing Note: Evaluation of progress towards goal: Patient plans to discharge to SNF later today. Problem: Potential for Compromised Skin Integrity Goal: Skin integrity is maintained or improved Description: Patient's goal is: INTERVENTIONS 1. Perform initial skin assessment on admission and as needed 2. Turn patient every 2 hours and PRN 3. Relieve pressure to bony prominences 4. Avoid shearing 5. Keep skin clean and dry 6. Alternate a full bath with partial baths for elderly 7. Apply lotion/moisturizer on skin 8. Monitor patient's hygiene practices 9. Float heels 10. Collaborate with interdisciplinary team and initiate plans and interventions as needed Outcome: Progressing Note: Evaluation of progress towards goal: wound care per orders. Ambulation and repositioning encouraged. Goal: Patient's nutritional intake is adequate Description: Patient's goal is: INTERVENTIONS 1. Assess and monitor food intake and supplements, patient food preferences, nausea, vomiting, labs, oral cavity (gums, teeth, tongue, mucosa), proper denture fit, and cultural beliefs 2. Monitor for signs of hypoglycemia and hyperglycemia 3. Collaborate with interdisciplinary team and initiate plan and interventions as ordered 4. Monitor patient's weight 5. Assist patient with meals/food selection 6. Assist patient with eating 7. Allow adequate time for meals 8. Provide pleasant environment during mealtime 9. Increase social contact during mealtimes 10. Plan activities to conserve energy 11. Encourage/perform oral hygiene as appropriate 12. Encourage patient to take dietary supplement as ordered 13. Collaborate with clinical supervisor loading 14. Include patient/ patient's national account representative in decisions related to nutrition Outcome: Progressing Note: Evaluation of progress towards goal: Patient intake fair on regular diet. Problem: Urinary Incontinence Goal: Perineal skin integrity is maintained or improved Description: INTERVENTIONS 1. Assess genitourinary system, perineal skin, labs (urinalysis), and history of incontinence to include past management, aggravating, and alleviating factors 2. Keep skin clean and dry 3. Apply skin protectant 4. Develop skin care regimen 5. Provide privacy when changing patients incontinence device to maintain their dignity 6. Consider placing an indwelling catheter 7. Collaborate with interdisciplinary team and initiate plans and interventions as needed Outcome: Progressing Note: Evaluation of progress towards goal: Beckman catheter maintained and patent. Problem: Moderate - High Risk Fall Score Description: Tamayo Fall Score of =/> 25 or indicated by [facility] Assessment Goal: Patient should be free from fall Description: Interventions: 1. Combes to environment 2. Hourly rounds addressing the 4 P's (Pain, Positioning, Possessions, Potty) 3. Clear area of hazards (spills, clutter, electrical cords, unnecessary equipment) 4. Place equipment (bed & TV controls, call light, phone, urinal) within reach 5. Encourage patient to wear glasses and hearing aides as appropriate 6. Maintain bed in lowest position 7. Lock wheels on bed/wheelchair 8. Provide adequate lighting, including night light 9. Assess need for additional bedding, food/fluids, pain med's prior to sleep/routinely 10. Provide gripper slippers or personal non-skid footwear 11. Teach patient and patient national account representative to maintain environment for safety and engage in all aspects of fall prevention program 12. Remind patient to call for help before getting out of bed 13. Initiate bed/chair/exit alarms supportive devices as appropriate, (chair wedge, no-skid floor mat, raised edge mattress, hip protectors) 14. Locate patient bed assignment for optimal visualization 15. Evaluate and identify Safe Patient Handling Equipment needs 16. Provide supervision when out of bed or chair 17. Utilize gait belt as needed to assist with ambulation 18. Place adaptive equipment (cane, walker) within reach 19. Request patient national account representative bring adaptive equipment/mobility aids from home or obtain and provide as needed 20. Consult pharmacy regarding effects of med's affecting mobility, cognition, and alternatives 21. Obtain physician order for PT if risk factors associated with mobility are present 22. Obtain physician order for OT as appropriate 23. Utilize diversional activities 24. Educate patient and patient national account representative how to maintain a safe environment during visitationtimes (notify nurse prior to leaving bedside) 25. Consider appropriateness of medical or non-medical interpreter 26. Set up voiding schedule as appropriate (every 2 hours) Outcome: Progressing Note: Evaluation of progress towards goal: Patient free of fall. Non-slip socks on. Bed locked and lowest position. 2/4 side rails raised. Call light within reach. Patient alert and oriented. Will continue to monitor. * Discharge Planning Note - Ángela Bailey RN - 01/07/2024 12:59 PM EST DISCHARGE PLANNING NOTE [facility] Supervisor met with patient and daughter Joanna at bedside to let them know that [facility] isable to accept today. Joanna stated they were debating transporting the patient themselves, but sheis feeling the patient would be more comfortable with hospital arranged transport. BLS transport has been arranged for 5pm today. Patient's RN, patient, daughter Joanna, and facility have been updated. IMM provided to patient.Transport packet started. Awaiting discharge orders. - Ángela Bailey RN 01/07/24 1:01 PM [facility]. Discharge packet complete and in chart slot. - Ángela Bailey RN 01/07/24 2:01 PM * Discharge Planning Note - Luli Moeller - 01/07/2024 12:26 PM EST DISCHARGE PLANNING NOTE [facility] transport [facility] via ptn confirme for 01/06 at 1700. * PT/OT/OPTICAL STORE MANAGER - Ang Winn PTA - 01/07/2024 11:55 AM EST Physical Therapy Treatment Discharge Recommendations PT Recommendations: Snf Facility SNF/ECF Comments: Recommending SNF as pt is a high fall risk requiring 2 person assist for all bed mobility and transfers. Pt unable to ambulate at this time. 6 Clicks: Basic Mobility Turning from your back to your side while in a flat bed without using bed rails?: A little Moving from lying on your back to sitting on side of flat bed without using bed rails?: A lot Moving to and from bed to a chair (including w/c)?: A lot Standing up from a chair using your arms (e.g. w/c or bedside chair)?: A lot To walk in hospital room?: A lot Climbing 3-5 steps with a railing?: Total Scoring 6 Clicks: Basic Mobility Raw Score: 12 CMS G Code Modifier: CL Patient Response to Treatment: Slow progress, decreased activity tolerance Assessment Patient Assessment Patient Response to Treatment: Slow progress, decreased activity tolerance Visit RN Communication: Yes Medical Record Reviewed: Yes PT Type of Visit: Treatment Precautions Activity: early mobility: pass; ok to see per RN Equipment: Gait belt, RW, ana stedy, bed/chair alarm, O2 via MT, beckman Telemetry/Bioinformatics Engineer: Yes Oxygen Used: 2LO2 via NC. Other: Fall risk, s/p RLE bypass Pain Assessment Pain Assessment: 0-10 Pain Score: 10 Pain Type: Chronic pain Pain Location: Leg Pain Orientation: Left, Right Pain Intervention(s): Repositioned, Ambulation/increased activity Response to Interventions: Pain unchanged Bed Mobility Supine to Sit: Max assist Sit to Supine: Unable to assess (NT, pt left sitting up in bedside chair with light and tray near.) Other: HOB elevated, use of siderail, assist for trunk and BLE movement. Transfers Sit to Stand: Mod assist Stand to Sit: Mod assist Bed to Chair: Min assist Other: cues for proper hand placement. Gait Base of Support: Within Functional Limits Pattern: Decreased farida, Antalgic gait, R Decreased heel strike, R Decreased foot clearance, R Decreased stance time Gait Assistance: Min assist Assistive Device: Rolling walker Gait Distance: 4' bed to chair Limiting Factors to Gait: Fatigue, Weakness, Pain Other: cues for sequencing and safety. Balance Sitting Balance: Static: Fair Sitting Balance: Dynamic: Fair Standing Balance: Static: Fair (-) Standing Balance: Dynamic: Poor (+) Other: Pt sat unsupported for approx. 8 minutes to improve balance. Activity Tolerance Endurance: Tolerates <30 minutes activity WITHOUT vital sign changes Other: rest breaks as needed Plan Physical Therapy Care Plan Physical Therapy Care Plan (Active) Template: PT - Physical Therapy Problem: Bed Mobility Dates: Start: 01/02/24 Disciplines: PT Goal: Patient will perform bed mobility with Modified [place] Dates: Start: 01/02/24 Expected End: 01/08/24 Description: HOB elevated and use of rail as needed Disciplines: PT Outcomes Date/Time User Outcome 01/07/24 1148 Ang Winn PTA Progressing 01/04/24 1142 Fanny Roberts PT Not Progressing Goal Note filed on 01/07/24 1148 by Ang Winn PTA Evaluation of progress towards goal: Problem: Gait Dates: Start: 01/02/24 Disciplines: PT Goal: Patient will perform gait with Modified [place] Dates: Start: 01/02/24 Expected End: 01/08/24 Description: With__RW__,__100__feet Goal Description: to facilitate household ambulation Disciplines: PT Outcomes Date/Time User Outcome 01/07/24 1148 Ang Winn PTA Progressing 01/04/24 1142 Fanny Roberts PT Not Progressing Goal Note filed on 01/07/24 1148 by Ang Winn PTA Evaluation of progress towards goal: Problem: ROM Dates: Start: 01/02/24 Disciplines: PT Goal: Improve ROM Dates: Start: 01/02/24 Expected End: 01/08/24 Description: Of extremity/ location: R knee to 0-90 degrees To facilitate: improved ability to transfer Disciplines: PT Outcomes Date/Time User Outcome 01/07/24 1148 Ang Winn PTA Progressing 01/04/24 1142 Fanny Roberts PT Not Progressing Goal Note filed on 01/07/24 1148 by Ang Winn PTA Evaluation of progress towards goal: Problem: Standing Balance Dates: Start: 01/02/24 Disciplines: PT Goal: Improve balance to good Dates: Start: 01/02/24 Expected End: 01/08/24 Description: Static with RW Dynamic with RW To promote safety with transfers and gait. Disciplines: PT Outcomes Date/Time User Outcome 01/07/24 1148 Ang Winn PTA Progressing 01/04/24 1142 Fanny Roberts PT Not Progressing Goal Note filed on 01/07/24 1148 by Ang Winn PTA Evaluation of progress towards goal: Problem: Strength Dates: Start: 01/02/24 Disciplines: PT Goal: Improve strength Dates: Start: 01/02/24 Expected End: 01/08/24 Description: Pt will perform x15 reps, AROM, of all prescribed LE exercises to improve strength andfacilitate their ability to transfer and ambulate. Disciplines: PT Outcomes Date/Time User Outcome 01/07/24 1148 Ang Winn PTA Progressing 01/04/24 1142 Fanny Roberts PT Not Progressing Goal Note filed on 01/07/24 1148 by Ang Winn PTA Evaluation of progress towards goal: Problem: Transfers Dates: Start: 01/02/24 Disciplines: PT Goal: Patient will perform transfers with Modified [place] Dates: Start: 01/02/24 Expected End: 01/08/24 Description: Goal Description: Using appropriate technique and hand placement for safety at home Disciplines: PT Outcomes Date/Time User Outcome 01/07/24 1148 Ang Winn PTA Progressing 01/04/24 1142 Fanny Alejandra, PT Not Progressing Goal Note filed on 01/07/24 1148 by Ang Winn PTA Evaluation of progress towards goal: Physical Therapy Care Plan (Resolved) There are no resolved problems. 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 * Plan of Care - Laquita Argueta RN - 01/07/2024 4:19 AM EST Problem: Pain Goal: Patient goal is pain score less than 4, able to rest, and participant in treatment plan as appropriate Description: INTERVENTIONS: 1. Encourage patient or legal national account representative to report early pain and ask for pain medicine when needed 2. Assess pain using appropriate pain scale and include the scale used when documenting 3. Administer analgesics based on type and severity of pain and evaluate response within appropriate time frame 4. Implement non-pharmacological measures as appropriate and evaluate response 5. Consider cultural and social influences on pain and pain management 6. Notify LIP if interventions ineffective or patient reports new pain 7. Monitor vital signs including pulse ox, end-tidal CO2 based on pain intervention 8. Reassess pain per policy 9. Teach patient or legal national account representative interventions for comforting Outcome: Progressing Note: Evaluation of progress towards goal: Pt encouraged to monitor one's own pain. PRN pain meds available. Continue to monitor pt. Problem: Safety Goal: Patient will be injury free during hospitalization Description: INTERVENTIONS: 1. Assess patient's risk for falls and implement fall prevention plan of care per policy 2. Provide and maintain a safe environment 3. Proper use of double Identifiers 4. Medication administration using the 5 rights 5. Hand hygiene 6. Specimens are labeled at the bedside 7. Instruct patient/ patient national account representative about use of safety devices 8. Include patient/ patient national account representative in decisions related to safety Outcome: Progressing Note: Evaluation of progress towards goal: Safety measures initiated/maintained. Patient remains safe from injury/falls, continue to monitor. Problem: Infection Goal: Absence of infection during hospitalization Description: Interventions: 1. Assess and monitor for signs and symptoms of infection 2. Monitor lab/diagnostic results 3. Monitor all insertion sites i.e., indwelling lines, tubes and drains 4. Monitor endotracheal (as able) and nasal secretions for changes in amount and color 5. Administer medications as ordered 6. Instruct and encourage patient and family to use good hand hygiene technique 7. Identify and instruct patient/patient national account representative in use of appropriate isolation precautionsfor identified infection/symptoms 8. Provide and discuss with patient/patient national account representative on educational MDRO sheet 9. Encourage and monitor nutritional status daily and consult supervisor loading if indicated 10. Implement neutropenic guidelines as needed 11. Review exposure to history of communicable disease and recent travel history on admission 12. Encourage annual influenza vaccine 13. Encourage pneumonia vaccine Outcome: Progressing Note: Evaluation of progress towards goal: Vitals sign wnl. No sign of infection noted. Problem: Knowledge Deficit Goal: Patient/patient national account representative demonstrates understanding of disease process, treatment plan,medications, and discharge instructions Description: INTERVENTIONS 1. Complete learning assessment and assess knowledge base 2. Provide teaching at level of understanding 3. Provide teaching via preferred learning method(s) Outcome: Progressing Note: Evaluation of progress towards goal: Patient/patient national account representative demonstrates understanding of disease process, treatment plan, medications, and discharge instructions. Problem: Discharge Planning Goal: Discharge to post-acute care, other facility, or home with appropriate resources Description: Patient's goal is: snf INTERVENTIONS 1. Conduct assessment to determine patient/family and health care team treatment goals, and need for post-acute services based on payer coverage, community resources, and patient preferences, and barriers to discharge 2. Coordinate with Social work, Care Navigation, and Utilization Review to arrange appropriate level of services according to patient's needs based on patient preference and payer coverage in collaboration with the physician and health care team 3. Address psychosocial, clinical, and financial barriers to discharge as identified in assessment in conjunction with the patient/family and health care team 4. Consult appropriate ancillary services (i.e.. PT/OT/ST, etc) as needed 5. Communicate with and update the patient/family, physician, and health care team regarding progress on the discharge plan 6. Identify discharge learning needs (meds, wound care, etc). 7. Arrange for needed discharge transportation as appropriate Outcome: Progressing Note: Evaluation of progress towards goal: Discharge to rehab facility, or home with appropriate resources. Problem: Potential for Compromised Skin Integrity Goal: Skin integrity is maintained or improved Description: Patient's goal is: INTERVENTIONS 1. Perform initial skin assessment on admission and as needed 2. Turn patient every 2 hours and PRN 3. Relieve pressure to bony prominences 4. Avoid shearing 5. Keep skin clean and dry 6. Alternate a full bath with partial baths for elderly 7. Apply lotion/moisturizer on skin 8. Monitor patient's hygiene practices 9. Float heels 10. Collaborate with interdisciplinary team and initiate plans and interventions as needed Outcome: Progressing Note: Evaluation of progress towards goal: Skin integrity is maintained. Patient is kept dry. Patient skin is intact. Will continue to monitor. Problem: Urinary Incontinence Goal: Perineal skin integrity is maintained or improved Description: INTERVENTIONS 1. Assess genitourinary system, perineal skin, labs (urinalysis), and history of incontinence to include past management, aggravating, and alleviating factors 2. Keep skin clean and dry 3. Apply skin protectant 4. Develop skin care regimen 5. Provide privacy when changing patients incontinence device to maintain their dignity 6. Consider placing an indwelling catheter 7. Collaborate with interdisciplinary team and initiate plans and interventions as needed Outcome: Progressing Note: Evaluation of progress towards goal: Problem: Moderate - High Risk Fall Score Description: Tamayo Fall Score of =/> 25 or indicated by [facility] Assessment Goal: Patient should be free from fall Description: Interventions: 1. Combes to environment 2. Hourly rounds addressing the 4 P's (Pain, Positioning, Possessions, Potty) 3. Clear area of hazards (spills, clutter, electrical cords, unnecessary equipment) 4. Place equipment (bed & TV controls, call light, phone, urinal) within reach 5. Encourage patient to wear glasses and hearing aides as appropriate 6. Maintain bed in lowest position 7. Lock wheels on bed/wheelchair 8. Provide adequate lighting, including night light 9. Assess need for additional bedding, food/fluids, pain med's prior to sleep/routinely 10. Provide gripper slippers or personal non-skid footwear 11. Teach patient and patient national account representative to maintain environment for safety and engage in all aspects of fall prevention program 12. Remind patient to call for help before getting out of bed 13. Initiate bed/chair/exit alarms supportive devices as appropriate, (chair wedge, no-skid floor mat, raised edge mattress, hip protectors) 14. Locate patient bed assignment for optimal visualization 15. Evaluate and identify Safe Patient Handling Equipment needs 16. Provide supervision when out of bed or chair 17. Utilize gait belt as needed to assist with ambulation 18. Place adaptive equipment (cane, walker) within reach 19. Request patient national account representative bring adaptive equipment/mobility aids from home or obtain and provide as needed 20. Consult pharmacy regarding effects of med's affecting mobility, cognition, and alternatives 21. Obtain physician order for PT if risk factors associated with mobility are present 22. Obtain physician order for OT as appropriate 23. Utilize diversional activities 24. Educate patient and patient national account representative how to maintain a safe environment during visitationtimes (notify nurse prior to leaving bedside) 25. Consider appropriateness of medical or non-medical interpreter 26. Set up voiding schedule as appropriate (every 2 hours) Outcome: Progressing Note: Evaluation of progress towards goal: Area free from hazards, patient call light within reach,will continue to monitor patient for risk of falls. * Plan of Care - Matilda Wilson RN - 01/06/2024 2:13 PM EST Problem: Pain Goal: Patient goal is pain score less than 4, able to rest, and participant in treatment plan as appropriate Description: INTERVENTIONS: 1. Encourage patient or legal national account representative to report early pain and ask for pain medicine when needed 2. Assess pain using appropriate pain scale and include the scale used when documenting 3. Administer analgesics based on type and severity of pain and evaluate response within appropriate time frame 4. Implement non-pharmacological measures as appropriate and evaluate response 5. Consider cultural and social influences on pain and pain management 6. Notify LIP if interventions ineffective or patient reports new pain 7. Monitor vital signs including pulse ox, end-tidal CO2 based on pain intervention 8. Reassess pain per policy 9. Teach patient or legal national account representative interventions for comforting Outcome: Not Progressing Note: Evaluation of progress towards goal: Patient unable to tolerate PRN medications. She becomes confused and refuses to use medication other than Tylenol for pain. Problem: Safety Goal: Patient will be injury free during hospitalization Description: INTERVENTIONS: 1. Assess patient's risk for falls and implement fall prevention plan of care per policy 2. Provide and maintain a safe environment 3. Proper use of double Identifiers 4. Medication administration using the 5 rights 5. Hand hygiene 6. Specimens are labeled at the bedside 7. Instruct patient/ patient national account representative about use of safety devices 8. Include patient/ patient national account representative in decisions related to safety Outcome: Progressing Note: Evaluation of progress towards goal: Family member at bedside. Patient educated to use the call light to call for assistance. Hourly rounding completed to meet patient's needs. Problem: Knowledge Deficit Goal: Patient/patient national account representative demonstrates understanding of disease process, treatment plan,medications, and discharge instructions Description: INTERVENTIONS 1. Complete learning assessment and assess knowledge base 2. Provide teaching at level of understanding 3. Provide teaching via preferred learning method(s) Outcome: Progressing Note: Evaluation of progress towards goal: IV ATBx treatment with Rocephin. ID following patient's case. Problem: Discharge Planning Goal: Discharge to post-acute care, other facility, or home with appropriate resources Description: Patient's goal is: snf INTERVENTIONS 1. Conduct assessment to determine patient/family and health care team treatment goals, and need for post-acute services based on payer coverage, community resources, and patient preferences, and barriers to discharge 2. Coordinate with Social work, Care Navigation, and Utilization Review to arrange appropriate level of services according to patient's needs based on patient preference and payer coverage in collaboration with the physician and health care team 3. Address psychosocial, clinical, and financial barriers to discharge as identified in assessment in conjunction with the patient/family and health care team 4. Consult appropriate ancillary services (i.e.. PT/OT/ST, etc) as needed 5. Communicate with and update the patient/family, physician, and health care team regarding progress on the discharge plan 6. Identify discharge learning needs (meds, wound care, etc). 7. Arrange for needed discharge transportation as appropriate Outcome: Progressing Note: Evaluation of progress towards goal: Patient anticipates d/c to [facility] for rehab therapy. * Plan of Care - Laquita Argueta RN - 01/05/2024 11:47 PM EST Problem: Pain Goal: Patient goal is pain score less than 4, able to rest, and participant in treatment plan as appropriate Description: INTERVENTIONS: 1. Encourage patient or legal national account representative to report early pain and ask for pain medicine when needed 2. Assess pain using appropriate pain scale and include the scale used when documenting 3. Administer analgesics based on type and severity of pain and evaluate response within appropriate time frame 4. Implement non-pharmacological measures as appropriate and evaluate response 5. Consider cultural and social influences on pain and pain management 6. Notify LIP if interventions ineffective or patient reports new pain 7. Monitor vital signs including pulse ox, end-tidal CO2 based on pain intervention 8. Reassess pain per policy 9. Teach patient or legal national account representative interventions for comforting Outcome: Progressing Note: Evaluation of progress towards goal: Pt encouraged to monitor one's own pain. PRN pain meds available. Continue to monitor pt. Problem: Safety Goal: Patient will be injury free during hospitalization Description: INTERVENTIONS: 1. Assess patient's risk for falls and implement fall prevention plan of care per policy 2. Provide and maintain a safe environment 3. Proper use of double Identifiers 4. Medication administration using the 5 rights 5. Hand hygiene 6. Specimens are labeled at the bedside 7. Instruct patient/ patient national account representative about use of safety devices 8. Include patient/ patient national account representative in decisions related to safety Outcome: Progressing Note: Evaluation of progress towards goal: Safety measures initiated/maintained. Patient remains safe from injury/falls, continue to monitor. Problem: Infection Goal: Absence of infection during hospitalization Description: Interventions: 1. Assess and monitor for signs and symptoms of infection 2. Monitor lab/diagnostic results 3. Monitor all insertion sites i.e., indwelling lines, tubes and drains 4. Monitor endotracheal (as able) and nasal secretions for changes in amount and color 5. Administer medications as ordered 6. Instruct and encourage patient and family to use good hand hygiene technique 7. Identify and instruct patient/patient national account representative in use of appropriate isolation precautionsfor identified infection/symptoms 8. Provide and discuss with patient/patient national account representative on educational MDRO sheet 9. Encourage and monitor nutritional status daily and consult supervisor loading if indicated 10. Implement neutropenic guidelines as needed 11. Review exposure to history of communicable disease and recent travel history on admission 12. Encourage annual influenza vaccine 13. Encourage pneumonia vaccine Outcome: Progressing Note: Evaluation of progress towards goal: IV antibiotics continues for infection. Tolerating meds.Vitals within normal limits. Problem: Knowledge Deficit Goal: Patient/patient national account representative demonstrates understanding of disease process, treatment plan,medications, and discharge instructions Description: INTERVENTIONS 1. Complete learning assessment and assess knowledge base 2. Provide teaching at level of understanding 3. Provide teaching via preferred learning method(s) Outcome: Progressing Note: Evaluation of progress towards goal: Patient/patient national account representative demonstrates understanding of disease process, treatment plan, medications, and discharge instructions. Problem: Discharge Planning Goal: Discharge to post-acute care, other facility, or home with appropriate resources Description: Patient's goal is: snf INTERVENTIONS 1. Conduct assessment to determine patient/family and health care team treatment goals, and need for post-acute services based on payer coverage, community resources, and patient preferences, and barriers to discharge 2. Coordinate with Social work, Care Navigation, and Utilization Review to arrange appropriate level of services according to patient's needs based on patient preference and payer coverage in collaboration with the physician and health care team 3. Address psychosocial, clinical, and financial barriers to discharge as identified in assessment in conjunction with the patient/family and health care team 4. Consult appropriate ancillary services (i.e.. PT/OT/ST, etc) as needed 5. Communicate with and update the patient/family, physician, and health care team regarding progress on the discharge plan 6. Identify discharge learning needs (meds, wound care, etc). 7. Arrange for needed discharge transportation as appropriate Outcome: Progressing Note: Evaluation of progress towards goal: Discharge to rehab facility, or home with appropriate resources. Problem: Potential for Compromised Skin Integrity Goal: Skin integrity is maintained or improved Description: Patient's goal is: INTERVENTIONS 1. Perform initial skin assessment on admission and as needed 2. Turn patient every 2 hours and PRN 3. Relieve pressure to bony prominences 4. Avoid shearing 5. Keep skin clean and dry 6. Alternate a full bath with partial baths for elderly 7. Apply lotion/moisturizer on skin 8. Monitor patient's hygiene practices 9. Float heels 10. Collaborate with interdisciplinary team and initiate plans and interventions as needed Outcome: Progressing Note: Evaluation of progress towards goal: Skin integrity is maintained. Patient is kept dry. Patient skin is intact. Will continue to monitor. Problem: Moderate - High Risk Fall Score Description: Tamayo Fall Score of =/> 25 or indicated by [facility] Assessment Goal: Patient should be free from fall Description: Interventions: 1. Combes to environment 2. Hourly rounds addressing the 4 P's (Pain, Positioning, Possessions, Potty) 3. Clear area of hazards (spills, clutter, electrical cords, unnecessary equipment) 4. Place equipment (bed & TV controls, call light, phone, urinal) within reach 5. Encourage patient to wear glasses and hearing aides as appropriate 6. Maintain bed in lowest position 7. Lock wheels on bed/wheelchair 8. Provide adequate lighting, including night light 9. Assess need for additional bedding, food/fluids, pain med's prior to sleep/routinely 10. Provide gripper slippers or personal non-skid footwear 11. Teach patient and patient national account representative to maintain environment for safety and engage in all aspects of fall prevention program 12. Remind patient to call for help before getting out of bed 13. Initiate bed/chair/exit alarms supportive devices as appropriate, (chair wedge, no-skid floor mat, raised edge mattress, hip protectors) 14. Locate patient bed assignment for optimal visualization 15. Evaluate and identify Safe Patient Handling Equipment needs 16. Provide supervision when out of bed or chair 17. Utilize gait belt as needed to assist with ambulation 18. Place adaptive equipment (cane, walker) within reach 19. Request patient national account representative bring adaptive equipment/mobility aids from home or obtain and provide as needed 20. Consult pharmacy regarding effects of med's affecting mobility, cognition, and alternatives 21. Obtain physician order for PT if risk factors associated with mobility are present 22. Obtain physician order for OT as appropriate 23. Utilize diversional activities 24. Educate patient and patient national account representative how to maintain a safe environment during visitationtimes (notify nurse prior to leaving bedside) 25. Consider appropriateness of medical or non-medical interpreter 26. Set up voiding schedule as appropriate (every 2 hours) Outcome: Progressing Note: Evaluation of progress towards goal: Area free from hazards, patient call light within reach,will continue to monitor patient for risk of falls. * Discharge Planning Note - Juan Branch - 01/05/2024 10:11 AM EST DISCHARGE PLANNING NOTE Clinical Updates Sent to [facility] (P# ; F# ) * Discharge Planning Note - IVAN Coles - 01/05/2024 9:56 AM EST DISCHARGE PLANNING NOTE Task to [facility] to send clinical updates to [facility] [place]. Sw to follow. - IVAN Coles 01/05/24 9:56 AM * Plan of Care - Monie Brown RN - 01/05/2024 7:38 AM EST Problem: Pain Goal: Patient goal is pain score less than 4, able to rest, and participant in treatment plan as appropriate Description: INTERVENTIONS: 1. Encourage patient or legal national account representative to report early pain and ask for pain medicine when needed 2. Assess pain using appropriate pain scale and include the scale used when documenting 3. Administer analgesics based on type and severity of pain and evaluate response within appropriate time frame 4. Implement non-pharmacological measures as appropriate and evaluate response 5. Consider cultural and social influences on pain and pain management 6. Notify LIP if interventions ineffective or patient reports new pain 7. Monitor vital signs including pulse ox, end-tidal CO2 based on pain intervention 8. Reassess pain per policy 9. Teach patient or legal national account representative interventions for comforting Outcome: Progressing Note: Evaluation of progress towards goal: Medicated for pain as needed Problem: Safety Goal: Patient will be injury free during hospitalization Description: INTERVENTIONS: 1. Assess patient's risk for falls and implement fall prevention plan of care per policy 2. Provide and maintain a safe environment 3. Proper use of double Identifiers 4. Medication administration using the 5 rights 5. Hand hygiene 6. Specimens are labeled at the bedside 7. Instruct patient/ patient national account representative about use of safety devices 8. Include patient/ patient national account representative in decisions related to safety Outcome: Progressing Note: Evaluation of progress towards goal: Bed low and locked, call light within reach Problem: Infection Goal: Absence of infection during hospitalization Description: Interventions: 1. Assess and monitor for signs and symptoms of infection 2. Monitor lab/diagnostic results 3. Monitor all insertion sites i.e., indwelling lines, tubes and drains 4. Monitor endotracheal (as able) and nasal secretions for changes in amount and color 5. Administer medications as ordered 6. Instruct and encourage patient and family to use good hand hygiene technique 7. Identify and instruct patient/patient national account representative in use of appropriate isolation precautionsfor identified infection/symptoms 8. Provide and discuss with patient/patient national account representative on educational MDRO sheet 9. Encourage and monitor nutritional status daily and consult supervisor loading if indicated 10. Implement neutropenic guidelines as needed 11. Review exposure to history of communicable disease and recent travel history on admission 12. Encourage annual influenza vaccine 13. Encourage pneumonia vaccine Outcome: Progressing Note: Evaluation of progress towards goal: Antibiotics started Problem: Knowledge Deficit Goal: Patient/patient national account representative demonstrates understanding of disease process, treatment plan,medications, and discharge instructions Description: INTERVENTIONS 1. Complete learning assessment and assess knowledge base 2. Provide teaching at level of understanding 3. Provide teaching via preferred learning method(s) Outcome: Progressing Note: Evaluation of progress towards goal: Reviewed plan of care with patient Problem: Discharge Planning Goal: Discharge to post-acute care, other facility, or home with appropriate resources Description: Patient's goal is: snf INTERVENTIONS 1. Conduct assessment to determine patient/family and health care team treatment goals, and need for post-acute services based on payer coverage, community resources, and patient preferences, and barriers to discharge 2. Coordinate with Social work, Care Navigation, and Utilization Review to arrange appropriate level of services according to patient's needs based on patient preference and payer coverage in collaboration with the physician and health care team 3. Address psychosocial, clinical, and financial barriers to discharge as identified in assessment in conjunction with the patient/family and health care team 4. Consult appropriate ancillary services (i.e.. PT/OT/ST, etc) as needed 5. Communicate with and update the patient/family, physician, and health care team regarding progress on the discharge plan 6. Identify discharge learning needs (meds, wound care, etc). 7. Arrange for needed discharge transportation as appropriate Outcome: Progressing Note: Evaluation of progress towards goal: Reviewed plan of care with patient * Plan of Care - Laquita Argueta RN - 01/05/2024 12:01 AM EST Problem: Pain Goal: Patient goal is pain score less than 4, able to rest, and participant in treatment plan as appropriate Description: INTERVENTIONS: 1. Encourage patient or legal national account representative to report early pain and ask for pain medicine when needed 2. Assess pain using appropriate pain scale and include the scale used when documenting 3. Administer analgesics based on type and severity of pain and evaluate response within appropriate time frame 4. Implement non-pharmacological measures as appropriate and evaluate response 5. Consider cultural and social influences on pain and pain management 6. Notify LIP if interventions ineffective or patient reports new pain 7. Monitor vital signs including pulse ox, end-tidal CO2 based on pain intervention 8. Reassess pain per policy 9. Teach patient or legal national account representative interventions for comforting Outcome: Progressing Note: Evaluation of progress towards goal: Pt encouraged to monitor one's own pain. PRN pain meds available. Continue to monitor pt. Problem: Safety Goal: Patient will be injury free during hospitalization Description: INTERVENTIONS: 1. Assess patient's risk for falls and implement fall prevention plan of care per policy 2. Provide and maintain a safe environment 3. Proper use of double Identifiers 4. Medication administration using the 5 rights 5. Hand hygiene 6. Specimens are labeled at the bedside 7. Instruct patient/ patient national account representative about use of safety devices 8. Include patient/ patient national account representative in decisions related to safety Outcome: Progressing Note: Evaluation of progress towards goal: Safety measures initiated/maintained. Patient remains safe from injury/falls, continue to monitor. Problem: Infection Goal: Absence of infection during hospitalization Description: Interventions: 1. Assess and monitor for signs and symptoms of infection 2. Monitor lab/diagnostic results 3. Monitor all insertion sites i.e., indwelling lines, tubes and drains 4. Monitor endotracheal (as able) and nasal secretions for changes in amount and color 5. Administer medications as ordered 6. Instruct and encourage patient and family to use good hand hygiene technique 7. Identify and instruct patient/patient national account representative in use of appropriate isolation precautionsfor identified infection/symptoms 8. Provide and discuss with patient/patient national account representative on educational MDRO sheet 9. Encourage and monitor nutritional status daily and consult supervisor loading if indicated 10. Implement neutropenic guidelines as needed 11. Review exposure to history of communicable disease and recent travel history on admission 12. Encourage annual influenza vaccine 13. Encourage pneumonia vaccine Outcome: Progressing Note: Evaluation of progress towards goal: IV antibiotics continues for infection. Tolerating meds.Vitals within normal limits. Problem: Knowledge Deficit Goal: Patient/patient national account representative demonstrates understanding of disease process, treatment plan,medications, and discharge instructions Description: INTERVENTIONS 1. Complete learning assessment and assess knowledge base 2. Provide teaching at level of understanding 3. Provide teaching via preferred learning method(s) Outcome: Progressing Note: Evaluation of progress towards goal: Patient/patient national account representative demonstrates understanding of disease process, treatment plan, medications, and discharge instructions. Problem: Discharge Planning Goal: Discharge to post-acute care, other facility, or home with appropriate resources Description: Patient's goal is: snf INTERVENTIONS 1. Conduct assessment to determine patient/family and health care team treatment goals, and need for post-acute services based on payer coverage, community resources, and patient preferences, and barriers to discharge 2. Coordinate with Social work, Care Navigation, and Utilization Review to arrange appropriate level of services according to patient's needs based on patient preference and payer coverage in collaboration with the physician and health care team 3. Address psychosocial, clinical, and financial barriers to discharge as identified in assessment in conjunction with the patient/family and health care team 4. Consult appropriate ancillary services (i.e.. PT/OT/ST, etc) as needed 5. Communicate with and update the patient/family, physician, and health care team regarding progress on the discharge plan 6. Identify discharge learning needs (meds, wound care, etc). 7. Arrange for needed discharge transportation as appropriate Outcome: Progressing Note: Evaluation of progress towards goal: Discharge to rehab facility, or home with appropriate resources. Problem: Potential for Compromised Skin Integrity Goal: Skin integrity is maintained or improved Description: Patient's goal is: INTERVENTIONS 1. Perform initial skin assessment on admission and as needed 2. Turn patient every 2 hours and PRN 3. Relieve pressure to bony prominences 4. Avoid shearing 5. Keep skin clean and dry 6. Alternate a full bath with partial baths for elderly 7. Apply lotion/moisturizer on skin 8. Monitor patient's hygiene practices 9. Float heels 10. Collaborate with interdisciplinary team and initiate plans and interventions as needed Outcome: Progressing Note: Evaluation of progress towards goal: Skin integrity is maintained. Patient is kept dry. Patient skin is intact. Will continue to monitor. Problem: Urinary Incontinence Goal: Perineal skin integrity is maintained or improved Description: INTERVENTIONS 1. Assess genitourinary system, perineal skin, labs (urinalysis), and history of incontinence to include past management, aggravating, and alleviating factors 2. Keep skin clean and dry 3. Apply skin protectant 4. Develop skin care regimen 5. Provide privacy when changing patients incontinence device to maintain their dignity 6. Consider placing an indwelling catheter 7. Collaborate with interdisciplinary team and initiate plans and interventions as needed Outcome: Progressing Note: Evaluation of progress towards goal: Problem: Moderate - High Risk Fall Score Description: Tamayo Fall Score of =/> 25 or indicated by [facility] Assessment Goal: Patient should be free from fall Description: Interventions: 1. Combes to environment 2. Hourly rounds addressing the 4 P's (Pain, Positioning, Possessions, Potty) 3. Clear area of hazards (spills, clutter, electrical cords, unnecessary equipment) 4. Place equipment (bed & TV controls, call light, phone, urinal) within reach 5. Encourage patient to wear glasses and hearing aides as appropriate 6. Maintain bed in lowest position 7. Lock wheels on bed/wheelchair 8. Provide adequate lighting, including night light 9. Assess need for additional bedding, food/fluids, pain med's prior to sleep/routinely 10. Provide gripper slippers or personal non-skid footwear 11. Teach patient and patient national account representative to maintain environment for safety and engage in all aspects of fall prevention program 12. Remind patient to call for help before getting out of bed 13. Initiate bed/chair/exit alarms supportive devices as appropriate, (chair wedge, no-skid floor mat, raised edge mattress, hip protectors) 14. Locate patient bed assignment for optimal visualization 15. Evaluate and identify Safe Patient Handling Equipment needs 16. Provide supervision when out of bed or chair 17. Utilize gait belt as needed to assist with ambulation 18. Place adaptive equipment (cane, walker) within reach 19. Request patient national account representative bring adaptive equipment/mobility aids from home or obtain and provide as needed 20. Consult pharmacy regarding effects of med's affecting mobility, cognition, and alternatives 21. Obtain physician order for PT if risk factors associated with mobility are present 22. Obtain physician order for OT as appropriate 23. Utilize diversional activities 24. Educate patient and patient national account representative how to maintain a safe environment during visitationtimes (notify nurse prior to leaving bedside) 25. Consider appropriateness of medical or non-medical interpreter 26. Set up voiding schedule as appropriate (every 2 hours) Outcome: Progressing Note: Evaluation of progress towards goal: Area free from hazards, patient call light within reach,will continue to monitor patient for risk of falls. * Plan of Care - Bhumika Neely RN - 01/04/2024 1:19 PM EST Problem: Pain Goal: Patient goal is pain score less than 4, able to rest, and participant in treatment plan as appropriate Description: INTERVENTIONS: 1. Encourage patient or legal national account representative to report early pain and ask for pain medicine when needed 2. Assess pain using appropriate pain scale and include the scale used when documenting 3. Administer analgesics based on type and severity of pain and evaluate response within appropriate time frame 4. Implement non-pharmacological measures as appropriate and evaluate response 5. Consider cultural and social influences on pain and pain management 6. Notify LIP if interventions ineffective or patient reports new pain 7. Monitor vital signs including pulse ox, end-tidal CO2 based on pain intervention 8. Reassess pain per policy 9. Teach patient or legal national account representative interventions for comforting Outcome: Progressing Note: Evaluation of progress towards goal: PRN pain medications available for comfort, patient states pain well controlled. Pain reassessed per policy. Problem: Safety Goal: Patient will be injury free during hospitalization Description: INTERVENTIONS: 1. Assess patient's risk for falls and implement fall prevention plan of care per policy 2. Provide and maintain a safe environment 3. Proper use of double Identifiers 4. Medication administration using the 5 rights 5. Hand hygiene 6. Specimens are labeled at the bedside 7. Instruct patient/ patient national account representative about use of safety devices 8. Include patient/ patient national account representative in decisions related to safety Outcome: Progressing Note: Evaluation of progress towards goal: Assessed patient's risk for falls and implemented fall prevention plan of care per policy. Provided and maintained a safe environment. Pt remains free from falls and injury during this stay. * PT/OT/OPTICAL STORE MANAGER - Fanny Roberts PT - 01/04/2024 11:42 AM EST Physical Therapy Treatment Discharge Recommendations PT Recommendations: Snf Facility SNF/ECF Comments: Continue to recommend SNF. Pt now requiring 2 person assist for bed mobility and transfers with Anagonzález Byrdnilsa. Increased confusion noted. 6 Clicks: Basic Mobility Turning from your back to your side while in a flat bed without using bed rails?: A little Moving from lying on your back to sitting on side of flat bed without using bed rails?: A lot Moving to and from bed to a chair (including w/c)?: A lot Standing up from a chair using your arms (e.g. w/c or bedside chair)?: A lot To walk in hospital room?: Total Climbing 3-5 steps with a railing?: Total Scoring 6 Clicks: Basic Mobility Raw Score: 11 CMS G Code Modifier: CL PT Treatment/Interventions: Functional transfer training, UE strengthening/ROM, LE strengthening/ROM, Endurance training, Equipment eval/education, Balance, Bed mobility, Gait training, Functional activities PT Frequency: 5-6days/week PT Duration: LOS Patient Response to Treatment: Slow progress, decreased activity tolerance, Slow progress, cognitive deficits Assessment Patient Assessment Therapy Problem List: Decreased ADL status, Decreased balance, Decreased cognition, Decreased endurance, Decreased mobility, Decreased high-level ADLs, Decreased UE strength, Decreased LE strength Patient Response to Treatment: Slow progress, decreased activity tolerance, Slow progress, cognitive deficits Mood/Affect: Appropriate for circumstances Rehab Prognosis: Good, With continued PT status post acute discharge Visit RN Communication: Yes Medical Record Reviewed: Yes PT Type of Visit: Treatment Precautions Activity: early mobility pass -OK to see per RN Equipment: RW, gait belt, Ana Stedy, O2, bed/chair alarm, Bcekman Telemetry/Bioinformatics Engineer: Yes Oxygen Used: 2L via NC Other: Fall risk, confused, s/p RLE bypass Pain Assessment Pain Assessment: 0-10 Pain Score: (Pt unable to rate but groaning/grimacing with activity) Pain Type: Surgical pain Pain Location: Leg Pain Orientation: Right Pain Intervention(s): Ambulation/increased activity, Repositioned Response to Interventions: Pain unchanged, Quiet, Eyes closed Hearing / Speech / Vision Hearing: Hard of hearing/hearing concerns Speech: Within Functional Limits Cognition Overall Cognitive Status: Exceptions to Within Functional Limits Arousal/Alertness: Delayed responses to stimuli Attention Span: Difficulty attending to directions Memory: Decreased recall of recent events Orientation Level: Oriented to person, Oriented to age, Disoriented to situation, Disoriented to place, Disoriented to month, Disoriented to time Following Commands: Follows one step commands with increased time, Follows one step commands with repetition (inconsistent, often requires multiple repititions and verbal cues) Safety Judgment: Decreased awareness of need for assistance, Decreased awareness of need for safety Awareness of Errors: Decreased awareness of errors Insight of Deficits: Decreased awareness of deficits Problem Solving: Assistance required to identify errors made, Assistance required to implement solutions, Assistance required to generate solutions Interfering Components: Attention - sustained, Motor planning, Processing speed, Working memory Other: Pt more confused and lethargic this date. Requires extensive cues and time to process information. RN aware. Sensation Overall Sensation Status: Within Functional Limits Bed Mobility Supine to Sit: Max assist (2 person assist. LImited by decreased cognitition and abilty to follow simple commands as well as generalized weakness and RLE pain. HOB elevated and requires increased time and effort to complete.) Sit to Supine: (Not assessed. Pt up in chair at end of session with call light and needs in reach. Chair alarm on , Dtr in room. RN updated) Transfers Sit to Stand: Mod assist (2 person asist) Stand to Sit: Mod assist (2 person assist) Other: Attempted intial stand with RW but patient unable to complete with max A x 2. Ana Stedy then utilized. Pt required assist for bilat hand placement on SS bar. Mod x 2 required to complete STS d/t generalized weaknss and poor ability to process directions. Marked increased time and effort to complete. Gait Other: Not appopriate to attempt this date d/t confusion and generalized weakness. Balance Sitting Balance: Static: Fair Sitting Balance: Dynamic: Fair Standing Balance: Static: Poor Other: (Pt required CGA with BUE support while seated EOB for safety. Limited ability to chemical process project engineer Ana Stedy.) Activity Tolerance Endurance: Tolerates <30 minutes activity WITHOUT vital sign changes Other: Pt on 2L O2. No signtificant SOB noted and SpO2 maintained >90%. Limited by confusion, generalized weakness and RLE pain. Plan Physical Therapy Care Plan Physical Therapy Care Plan (Active) Template: PT - Physical Therapy Problem: Bed Mobility Dates: Start: 01/02/24 Disciplines: PT Goal: Patient will perform bed mobility with Modified [place] Dates: Start: 01/02/24 Expected End: 01/08/24 Description: HOB elevated and use of rail as needed Disciplines: PT Outcomes Date/Time User Outcome 01/04/24 1142 Fanny Roberts PT Not Progressing Problem: Gait Dates: Start: 01/02/24 Disciplines: PT Goal: Patient will perform gait with Modified [place] Dates: Start: 01/02/24 Expected End: 01/08/24 Description: With__RW__,__100__feet Goal Description: to facilitate household ambulation Disciplines: PT Outcomes Date/Time User Outcome 01/04/24 1142 Fanny Roberts PT Not Progressing Problem: ROM Dates: Start: 01/02/24 Disciplines: PT Goal: Improve ROM Dates: Start: 01/02/24 Expected End: 01/08/24 Description: Of extremity/ location: R knee to 0-90 degrees To facilitate: improved ability to transfer Disciplines: PT Outcomes Date/Time User Outcome 01/04/24 114Brooklynn Fanny Roberts PT Not Progressing Problem: Standing Balance Dates: Start: 01/02/24 Disciplines: PT Goal: Improve balance to good Dates: Start: 01/02/24 Expected End: 01/08/24 Description: Static with RW Dynamic with RW To promote safety with transfers and gait. Disciplines: PT Outcomes Date/Time User Outcome 01/04/24 Tye2 Fanny Roberts PT Not Progressing Problem: Strength Dates: Start: 01/02/24 Disciplines: PT Goal: Improve strength Dates: Start: 01/02/24 Expected End: 01/08/24 Description: Pt will perform x15 reps, AROM, of all prescribed LE exercises to improve strength andfacilitate their ability to transfer and ambulate. Disciplines: PT Outcomes Date/Time User Outcome 01/04/24 1142 Fanny Roberts PT Not Progressing Problem: Transfers Dates: Start: 01/02/24 Disciplines: PT Goal: Patient will perform transfers with Modified [place] Dates: Start: 01/02/24 Expected End: 01/08/24 Description: Goal Description: Using appropriate technique and hand placement for safety at home Disciplines: PT Outcomes Date/Time User Outcome 01/04/24 Tomasa Roberts PT Not Progressing Physical Therapy Care Plan (Resolved) There are no resolved problems. 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 Pt unable to ambulate at this time. 6 Clicks: Daily Activity Putting on and taking off regular lower body clothing?: Total Bathing (including washing, rinsing, drying)?: A lot Toileting, which includes using toilet, bedpan or urinal?: Total Putting on and taking off regular upper body clothing?: A little Taking care of personal grooming such as brushing teeth?: A little Eating meals?: A little Scoring Daily Activity Raw Score: 13 [facility] G Code Modifier: CL Therapy Plan Need for skilled Occupational Therapy to address deficits in ADL independence and functional mobility due to a status decline resulting from planned right iliofemoral endarterectomy, and fem-pop bypass on 12/31. Past Medical History: Diagnosis Date Anesthesia complication 2018 HAD HALLUCINATIONS FOR A FEW DAYS AFTER HIP SURGERY Arrhythmia Arthritis C. difficile diarrhea 12/2022 HOSPITALIZED, 01/2023 Cataract Cholecystitis Chronic kidney disease Colitis Coronary artery disease Critical limb ischemia of right lower extremity ([facility]) Dental disease UPPER AND LOWER DENTURE DIAZ (dyspnea on exertion) Fractures 2018 LEFT HIP GERD (gastroesophageal reflux disease) HL (hearing loss) Hyperlipidemia Hypertension Microscopic colitis PAD (peripheral artery disease) ([facility]) Peptic ulceration BLEEDING ULCER ADMITTED 2018 X13 DAYS TATYANA Rash Skin cancer REMOVED Sleep apnea No CPAP Thin skin Urinary tract infection CHRONIC, SEES ID EVERY 3 MONTHS Visual impairment Wound of ankle RIGHT SINCE 07/2023 Past Surgical History: Procedure Laterality Date ABDOMINAL SURGERY ANGIOGRAM EXTREMITY LOWER Right 01/01/2024 Performed by Deuce Kirkland MD at [facility] SPECIAL PROC ANGIOPLASTY ILIAC STENT PLACEMENT Right 01/01/2024 Performed by Deuce Kirkland MD at [facility] SPECIAL PROC ANGIOPLASTY ILIAC-ILIAC SHOCKWAVE INTRAVASCULAR LITHOTRIPSY Right 11/18/2023 Performed by Deuce Kirkland MD at [facility] SPECIAL PROC ARTHROSCOPY SHOULDER W/ OPEN ROTATOR CUFF REPAIR Left 2011 BOVINE PATCH ANGIOPLASTY CUTDOWN FEMORAL Right 01/01/2024 Performed by Deuce Kirkland MD at [facility] SPECIAL PROC BOVINE PATCH ANGIOPLASTY ILEOFEMORAL Right 01/01/2024 Performed by Deuce Kirkland MD at [facility] SPECIAL PROC BYPASS ARTERY FEMORAL BELOW KNEE POPLITEAL W/ VEIN PATCH/ HIGH GSV LIGATION AND HARVEST Right 01/01/2024 Performed by Deuce Kirkland MD at [facility] SPECIAL PROC CARDIAC SURGERY CATARACT EXTRACTION CHOLECYSTECTOMY N/A 2008 CORONARY ARTERY BYPASS GRAFT 1999 x 5 ENDARTERECTOMY FEMORAL AND ILIOFEMORAL ENDARTERECTOMY Right 01/01/2024 Performed by Deuce Kirkland MD at [facility] SPECIAL PROC EYE SURGERY HERNIA REPAIR N/A 03/2012 HIP FRACTURE SURGERY Left 05/2017 HYSTERECTOMY N/A JOINT REPLACEMENT lower ext angiogram Bilateral 01/07/2022 Performed by Taryn Belle MD at [facility] CARDIAC CATH LABS SCLEROTHERAPY LOWER EXTREMITY Right 12/24/2023 Performed by Deuce Kirkland MD at [facility] TOTAL HIP ARTHROPLASTY Left 2019 VASCULAR SURGERY Angiogram No chief complaint on file. OT Treatment/Interventions: ADL retraining, Functional transfer training, UE strengthening/ROM, LE strengthening/ROM, Endurance training, Cognitive reorientation, Patient/family training, Equipment eval/education, Balance, Bed mobility, Compensatory technique education, Functional activities OT Frequency: 4-5days/week OT Duration: LOS Assessment Patient Assessment Therapy Problem List: Decreased ADL status, Decreased balance, Decreased cognition, Decreased endurance, Decreased high-level ADLs, Decreased mobility, Decreased safe judgement during ADL, Decreased self-care trans, Decreased UE strength, Decreased LE strength Patient Response to Treatment: Tolerated evaluation without adverse reaction Mood/Affect: Appropriate for circumstances Rehab Prognosis: Good, With continued OT status post acute discharge Visit RN Communication: Yes Medical Record Reviewed: Yes OT Type of Visit: Evaluation Precautions Activity: early mobility: pass; ok to see per RN Equipment: Gait belt, RW, ana stedy, bed/chair alarm, O2 via NC, beckman Telemetry/Bioinformatics Engineer: Yes Oxygen Used: 2L via NC Other: Fall risk, confused, s/p RLE bypass Pain Assessment Pain Assessment: 0-10 Pain Score: (did not provide numerical rating but groaning and grimacing with movement) Pain Type: Surgical pain Pain Location: Leg Pain Orientation: Right Pain Intervention(s): Repositioned, Ambulation/increased activity Response to Interventions: Pain unchanged, Quiet, Eyes closed Home Living Type of Home: (Independent living condo) Home Layout: One level Stairs to Enter: 0 Stairs in Home: 0 Bathroom Shower/Tub: Walk-in shower Bathroom Toilet: Raised (with grab bars) Bathroom Equipment: Grab bars in shower, Shower chair, Hand-held shower, Grab bars around toilet Home Equipment: Rolling walker, 4 Wheeled walker, Cane Other : pt uses 4WW/ RW during mobility GAGE MAKER. Prior Function Lives With: Son (lives with pt and IND living but does leave at times to [place] and complete other activites.) Receives Help From: Family (one local dtr that fills in for son when they are not home and 2nd dtr that is semi local and assist as able/needed) Level of Mobility: Independent with ADLs and functional transfers or gait Homemaking Assistance: Needs assistance Cleaning: Total assist (cleaning service) ADL / IADL Hand Dominance: Right Eating Assistance: Min assist Grooming Assistance: Min assist Bathing/Showering Assistance: Max assist Toilet/Commode Assistance: Total assist (beckman) UE Dressing Assistance: Min assist LE Dressing Assistance: Total assist Footwear Assistance: Total assist Other: Limited by lethargy, cognition, pain Home Management - IADL Other: Limited by lethargy, cognition, pain Cognition Overall Cognitive Status: Exceptions to Within Functional Limits Arousal/Alertness: Inconsistent responses to stimuli Attention Span: Difficulty dividing attention, Difficulty attending to directions Orientation Level: Oriented to person, Oriented to age, Disoriented to place, Disoriented to situation, Disoriented to time Following Commands: Follows one step commands with repetition, Follows one step commands with increased time Safety Judgment: Decreased awareness of need for assistance, Decreased awareness of need for safety Awareness of Errors: Decreased awareness of errors Insight of Deficits: Decreased awareness of deficits Problem Solving: Reduced Other: pt confused and lethargic this date. requires extensive time for processing. RN aware. Bed Mobility Supine to Sit: Max assist (x2) Sit to Supine: Unable to assess (pt up in chair at end of session with call light in reach, all needs met. RN present in room. chair alarm on.) Other: pt required max x2 for trunk elevation, BLEs and scooting hips toward EOB. Pt able to initiate bed mobility but unable to achieve sup to sit without max assist. pt demod L sided lateral lean requiring intermittent min A for upright sitting. Transfers Sit to Stand: Mod assist (x2) Stand to Sit: Mod assist (x2) Bed to Chair: Total assist (ana stedy) Other: Pt unable to achieve standing with RW due weakness, pain and cognition. Pt achieved standingwith ana stedy use and mod x2 assist. Pt c/o increasing pain in RLE with standing. Increased bed height and increased time/effort required. Gait Other: not safe to attempt this date Balance Sitting Balance: Static: Fair Sitting Balance: Dynamic: Fair Standing Balance: Static: Poor Standing Balance: Dynamic: Poor Other: Pt demod L lateral lean in sitting with min A to correct. With time, pt demod improved sitting balance. BUE support on ana stedy with mod x2 assist during standing balance. RUE Assessment: (generalized weakness and deconditioning) LUE Assessment: (generalized weakness and deconditioning) Activity Tolerance Endurance: Tolerates <30 minutes activity WITHOUT vital sign changes Other: fair/ poor overall tolerance. Limited by fatigue, weakness, cognition, pain. Plan Occupational Therapy Care Plan Occupational Therapy Care Plan (Active) Template: OT - Occupational Therapy Problem: Activity Tolerance Dates: Start: 01/04/24 Disciplines: OT Goal: Tolerate > 30 minutes of activity WITH rest breaks Dates: Start: 01/04/24 Expected End: 02/01/24 Description: Goal Description: Disciplines: OT Problem: Bathing LB Dates: Start: 01/04/24 Disciplines: OT Goal: Patient will perform bathing LB with Minimum Assist Dates: Start: 01/04/24 Expected End: 02/01/24 Description: Goal Description: Disciplines: OT Problem: Bathing UB Dates: Start: 01/04/24 Disciplines: OT Goal: Patient will perform bathing UB with Minimum Assist Dates: Start: 01/04/24 Expected End: 02/01/24 Description: Goal Description: Disciplines: OT Problem: Bed Mobility Dates: Start: 01/04/24 Disciplines: OT Goal: Patient will perform bed mobility with Minimum Assist Dates: Start: 01/04/24 Expected End: 02/01/24 Description: Goal Description: Disciplines: OT Problem: Cognition Dates: Start: 01/04/24 Disciplines: OT Goal: Improve cognition Dates: Start: 01/04/24 Expected End: 02/01/24 Description: To facilitate: Pt to improve to A&O x4 to return to baseline and improve functional participation in ADL tasks. Disciplines: OT Problem: Dressing LB Dates: Start: 01/04/24 Disciplines: OT Goal: Patient will perform dressing LB with Minimum Assist Dates: Start: 01/04/24 Expected End: 02/01/24 Description: Goal Description: Disciplines: OT Problem: Dressing UB Dates: Start: 01/04/24 Disciplines: OT Goal: Patient will perform dressing UB with Contact Guard Dates: Start: 01/04/24 Expected End: 02/01/24 Description: Goal Description: Disciplines: OT Problem: Functional Mobility Dates: Start: 01/04/24 Disciplines: OT Goal: Patient will perform functional mobility with Minimum Assist Dates: Start: 01/04/24 Expected End: 02/01/24 Description: Goal Description: Disciplines: OT Problem: Grooming Dates: Start: 01/04/24 Disciplines: OT Goal: Patient will perform grooming with Modified [place] Dates: Start: 01/04/24 Expected End: 02/01/24 Description: Goal Description: Disciplines: OT Problem: Sitting Balance Dates: Start: 01/04/24 Disciplines: OT Goal: Improve balance to good Dates: Start: 01/04/24 Expected End: 02/01/24 Description: Static Dynamic Disciplines: OT Problem: Standing Balance Dates: Start: 01/04/24 Disciplines: OT Goal: Improve balance to good Dates: Start: 01/04/24 Expected End: 02/01/24 Description: Static Dynamic Disciplines: OT Problem: Strength Dates: Start: 01/04/24 Disciplines: OT Goal: Improve strength Dates: Start: 01/04/24 Expected End: 02/01/24 Description: Of extremity/ location: Tolerate BUE exercises for improved endurance and strength during ADLs To facilitate: Disciplines: OT Problem: Toilet Transfers Dates: Start: 01/04/24 Disciplines: OT Goal: Patient will perform toilet transfers with Minimum Assist Dates: Start: 01/04/24 Expected End: 02/01/24 Description: Goal Description: Disciplines: OT Problem: Toileting Dates: Start: 01/04/24 Disciplines: OT Goal: Patient will perform toileting with Minimum Assist Dates: Start: 01/04/24 Expected End: 02/01/24 Description: Goal Description: Disciplines: OT Problem: Transfers Dates: Start: 01/04/24 Disciplines: OT Goal: Patient will perform transfers with Contact Guard Dates: Start: 01/04/24 Expected End: 02/01/24 Description: Goal Description: Disciplines: OT Occupational Therapy Care Plan (Resolved) There are no resolved problems. 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 Encourage patient or legal national account representative to report early pain and ask for pain medicine when needed 2. Assess pain using appropriate pain scale and include the scale used when documenting 3. Administer analgesics based on type and severity of pain and evaluate response within appropriate time frame 4. Implement non-pharmacological measures as appropriate and evaluate response 5. Consider cultural and social influences on pain and pain management 6. Notify LIP if interventions ineffective or patient reports new pain 7. Monitor vital signs including pulse ox, end-tidal CO2 based on pain intervention 8. Reassess pain per policy 9. Teach patient or legal national account representative interventions for comforting Outcome: Progressing Note: Evaluation of progress towards goal: Pt states pain is controlled. Will continue to assess. Problem: Safety Goal: Patient will be injury free during hospitalization Description: INTERVENTIONS: 1. Assess patient's risk for falls and implement fall prevention plan of care per policy 2. Provide and maintain a safe environment 3. Proper use of double Identifiers 4. Medication administration using the 5 rights 5. Hand hygiene 6. Specimens are labeled at the bedside 7. Instruct patient/ patient national account representative about use of safety devices 8. Include patient/ patient national account representative in decisions related to safety Outcome: Progressing Note: Evaluation of progress towards goal: Pt free from falls. Safety maintained. Problem: Infection Goal: Absence of infection during hospitalization Description: Interventions: 1. Assess and monitor for signs and symptoms of infection 2. Monitor lab/diagnostic results 3. Monitor all insertion sites i.e., indwelling lines, tubes and drains 4. Monitor endotracheal (as able) and nasal secretions for changes in amount and color 5. Administer medications as ordered 6. Instruct and encourage patient and family to use good hand hygiene technique 7. Identify and instruct patient/patient national account representative in use of appropriate isolation precautionsfor identified infection/symptoms 8. Provide and discuss with patient/patient national account representative on educational MDRO sheet 9. Encourage and monitor nutritional status daily and consult supervisor loading if indicated 10. Implement neutropenic guidelines as needed 11. Review exposure to history of communicable disease and recent travel history on admission 12. Encourage annual influenza vaccine 13. Encourage pneumonia vaccine Outcome: Progressing Note: Evaluation of progress towards goal: Pt free from s/s of infection. Will continue to monitor. Problem: Knowledge Deficit Goal: Patient/patient national account representative demonstrates understanding of disease process, treatment plan,medications, and discharge instructions Description: INTERVENTIONS 1. Complete learning assessment and assess knowledge base 2. Provide teaching at level of understanding 3. Provide teaching via preferred learning method(s) Outcome: Progressing Note: Plan of care reviewed with patient. Questions answered. Will continue to assess. * Discharge Planning Note - Kelly Badillo RN - 01/03/2024 2:43 PM EST Images from the original note were not included. DISCHARGE PLANNING NOTE Chart reviewed, patient unable to stay awake for interaction. Daughter at bedside and discussed discharge planning with her and PT recs for SNF placement. Daughter states that patient is in the independent living portion of [facility] [place] and lives with her son. She states that patient is in agreement with placement and they would like a referrals to [facility] in there residential, tasked referral to be made and they can accept. Daughter is willing to transport her there if patient ismore awake tomorrow otherwise she will need transportation arranged. The plan is for the patient todischarge with [facility]. Services Requested: Services Requested Patient expects to be discharged to:: SNF Discharge Disposition: SNF Patient choice offered: Yes List Provided: Yes Initial DC Assessment Completed: Yes Patient Goals: Patient/Caregiver Goals Patient/Caregiver Goals: Snf Care Skilled Nuring Care: Skilled Care (Short Term) Goals: Goals Daughter stated: Discharge to SNF and then back to independent living with resumption of home care,. (pt-stated) Evaluation of progress towards goal: * Discharge Planning Note - Sabrina Garduno - 01/03/2024 1:41 PM EST DISCHARGE PLANNING NOTE Referral to [facility] (P# ; F# ) * Discharge Planning Note - IVAN Coles - 01/03/2024 12:06 PM EST DISCHARGE PLANNING NOTE Sw attempted to meet with pt to complete assessment and discuss post acute care needs. Staff currently providing care to pt at bedside. Will follow-up again later. - IVAN Coles 01/03/24 12:09 PM * PT/OT/OPTICAL STORE MANAGER - CHRISTOS Yao - 01/03/2024 8:44 AM EST Occupational Therapy OT Type of Visit: Medical deferral (pt with open wounds as she was unable to tolerate dressing paindue to pain. will check back as able.) * Plan of Care - Bhumika Neely RN - 01/03/2024 8:24 AM EST Problem: Pain Goal: Patient goal is pain score less than 4, able to rest, and participant in treatment plan as appropriate Description: INTERVENTIONS: 1. Encourage patient or legal national account representative to report early pain and ask for pain medicine when needed 2. Assess pain using appropriate pain scale and include the scale used when documenting 3. Administer analgesics based on type and severity of pain and evaluate response within appropriate time frame 4. Implement non-pharmacological measures as appropriate and evaluate response 5. Consider cultural and social influences on pain and pain management 6. Notify LIP if interventions ineffective or patient reports new pain 7. Monitor vital signs including pulse ox, end-tidal CO2 based on pain intervention 8. Reassess pain per policy 9. Teach patient or legal national account representative interventions for comforting Outcome: Progressing Note: Evaluation of progress towards goal: PRN pain medications available for comfort and given as scheduled. Pain reassessed per policy. Problem: Safety Goal: Patient will be injury free during hospitalization Description: INTERVENTIONS: 1. Assess patient's risk for falls and implement fall prevention plan of care per policy 2. Provide and maintain a safe environment 3. Proper use of double Identifiers 4. Medication administration using the 5 rights 5. Hand hygiene 6. Specimens are labeled at the bedside 7. Instruct patient/ patient national account representative about use of safety devices 8. Include patient/ patient national account representative in decisions related to safety Outcome: Progressing Note: Evaluation of progress towards goal: Assessed patient's risk for falls and implemented fall prevention plan of care per policy. Provided and maintained a safe environment. Pt remains free from falls and injury during this stay. Problem: Infection Goal: Absence of infection during hospitalization Description: Interventions: 1. Assess and monitor for signs and symptoms of infection 2. Monitor lab/diagnostic results 3. Monitor all insertion sites i.e., indwelling lines, tubes and drains 4. Monitor endotracheal (as able) and nasal secretions for changes in amount and color 5. Administer medications as ordered 6. Instruct and encourage patient and family to use good hand hygiene technique 7. Identify and instruct patient/patient national account representative in use of appropriate isolation precautionsfor identified infection/symptoms 8. Provide and discuss with patient/patient national account representative on educational MDRO sheet 9. Encourage and monitor nutritional status daily and consult supervisor loading if indicated 10. Implement neutropenic guidelines as needed 11. Review exposure to history of communicable disease and recent travel history on admission 12. Encourage annual influenza vaccine 13. Encourage pneumonia vaccine Outcome: Progressing Note: Evaluation of progress towards goal: Patient remains afebrile, no new s/s of infection at this time. Hand hygiene continued per protocol. Will continue to monitor. * Plan of Care - Kodak Clark RN - 01/03/2024 1:21 AM EST Problem: Pain Goal: Patient goal is pain score less than 4, able to rest, and participant in treatment plan as appropriate Description: INTERVENTIONS: 1. Encourage patient or legal national account representative to report early pain and ask for pain medicine when needed 2. Assess pain using appropriate pain scale and include the scale used when documenting 3. Administer analgesics based on type and severity of pain and evaluate response within appropriate time frame 4. Implement non-pharmacological measures as appropriate and evaluate response 5. Consider cultural and social influences on pain and pain management 6. Notify LIP if interventions ineffective or patient reports new pain 7. Monitor vital signs including pulse ox, end-tidal CO2 based on pain intervention 8. Reassess pain per policy 9. Teach patient or legal national account representative interventions for comforting Outcome: Progressing Note: Evaluation of progress towards goal: Pt states pain is controlled. Will continue to assess. Problem: Safety Goal: Patient will be injury free during hospitalization Description: INTERVENTIONS: 1. Assess patient's risk for falls and implement fall prevention plan of care per policy 2. Provide and maintain a safe environment 3. Proper use of double Identifiers 4. Medication administration using the 5 rights 5. Hand hygiene 6. Specimens are labeled at the bedside 7. Instruct patient/ patient national account representative about use of safety devices 8. Include patient/ patient national account representative in decisions related to safety Outcome: Progressing Note: Evaluation of progress towards goal: Pt free from falls. Safety maintained. Problem: Infection Goal: Absence of infection during hospitalization Description: Interventions: 1. Assess and monitor for signs and symptoms of infection 2. Monitor lab/diagnostic results 3. Monitor all insertion sites i.e., indwelling lines, tubes and drains 4. Monitor endotracheal (as able) and nasal secretions for changes in amount and color 5. Administer medications as ordered 6. Instruct and encourage patient and family to use good hand hygiene technique 7. Identify and instruct patient/patient national account representative in use of appropriate isolation precautionsfor identified infection/symptoms 8. Provide and discuss with patient/patient national account representative on educational MDRO sheet 9. Encourage and monitor nutritional status daily and consult supervisor loading if indicated 10. Implement neutropenic guidelines as needed 11. Review exposure to history of communicable disease and recent travel history on admission 12. Encourage annual influenza vaccine 13. Encourage pneumonia vaccine Outcome: Progressing Note: Evaluation of progress towards goal: Pt free from s/s of infection. Will continue to monitor. Problem: Knowledge Deficit Goal: Patient/patient national account representative demonstrates understanding of disease process, treatment plan,medications, and discharge instructions Description: INTERVENTIONS 1. Complete learning assessment and assess knowledge base 2. Provide teaching at level of understanding 3. Provide teaching via preferred learning method(s) Outcome: Progressing Note: Plan of care reviewed with patient. Questions answered. Will continue to assess. * PT/OT/OPTICAL STORE MANAGER - Leif Raymond, PT - 01/02/2024 4:56 PM EST Physical Therapy Evaluation Discharge Recommendations PT Recommendations: Snf Facility SNF/ECF Comments: At this time pt is not safe to return home due to current impairments noted in evaluation. 6 Clicks: Basic Mobility Turning from your back to your side while in a flat bed without using bed rails?: A little Moving from lying on your back to sitting on side of flat bed without using bed rails?: A lot Moving to and from bed to a chair (including w/c)?: A lot Standing up from a chair using your arms (e.g. w/c or bedside chair)?: A lot To walk in hospital room?: A little Climbing 3-5 steps with a railing?: Total Scoring 6 Clicks: Basic Mobility Raw Score: 13 [facility] G Code Modifier: CK Therapy Plan Need for skilled Physical Therapy to address deficits in functional mobility due to a status decline resulting from planned surgery. On 12/31 pt underwent R ENDARTERECTOMY FEMORAL AND ILIOFEMORAL ENDARTERECTOMY, ANGIOPLASTY ILIAC STENT PLACEMENT, BYPASS ARTERY FEMORAL BELOW KNEE POPLITEAL W/ VEIN PATCH/ HIGH GSV LIGATION AND HARVEST, and BOVINE PATCH ANGIOPLASTY ILEOFEMORAL Past Medical History: Diagnosis Date Anesthesia complication 2018 HAD HALLUCINATIONS FOR A FEW DAYS AFTER HIP SURGERY Arrhythmia Arthritis C. difficile diarrhea 12/2022 HOSPITALIZED, 01/2023 Cataract Cholecystitis Chronic kidney disease Colitis Coronary artery disease Critical limb ischemia of right lower extremity ([facility]) Dental disease UPPER AND LOWER DENTURE DIAZ (dyspnea on exertion) Fractures 2018 LEFT HIP GERD (gastroesophageal reflux disease) HL (hearing loss) Hyperlipidemia Hypertension Microscopic colitis PAD (peripheral artery disease) ([facility]) Peptic ulceration BLEEDING ULCER ADMITTED 2018 X13 DAYS TATYANA Rash Skin cancer REMOVED Sleep apnea No CPAP Thin skin Urinary tract infection CHRONIC, SEES ID EVERY 3 MONTHS Visual impairment Wound of ankle RIGHT SINCE 07/2023 Past Surgical History: Procedure Laterality Date ABDOMINAL SURGERY ANGIOPLASTY ILIAC-ILIAC SHOCKWAVE INTRAVASCULAR LITHOTRIPSY Right 11/18/2023 Performed by Deuce Kirkland MD at [facility] SPECIAL PROC ARTHROSCOPY SHOULDER W/ OPEN ROTATOR CUFF REPAIR Left 2011 CARDIAC SURGERY CATARACT EXTRACTION CHOLECYSTECTOMY N/A 2008 CORONARY ARTERY BYPASS GRAFT 1999 x 5 EYE SURGERY HERNIA REPAIR N/A 03/2012 HIP FRACTURE SURGERY Left 05/2017 HYSTERECTOMY N/A JOINT REPLACEMENT lower ext angiogram Bilateral 01/07/2022 Performed by Taryn Belle MD at [facility] CARDIAC CATH LABS SCLEROTHERAPY LOWER EXTREMITY Right 12/24/2023 Performed by Deuce Kirkland MD at [facility] TOTAL HIP ARTHROPLASTY Left 2019 VASCULAR SURGERY Angiogram PT Treatment/Interventions: ADL retraining, Functional transfer training, UE strengthening/ROM, LE strengthening/ROM, Endurance training, Balance, Equipment eval/education, Stair training, Bed mobility, Gait training, Compensatory technique education, Coordination activities, Neuromuscular reeducation PT Frequency: 5-6days/week PT Duration: LOS Patient Response to Treatment: Tolerated evaluation without adverse reaction Assessment Patient Assessment Therapy Problem List: Decreased ADL status, Decreased balance, Decreased endurance, Decreased high-level ADLs, Decreased mobility, Decreased LE ROM, Decreased LE strength, Decreased sensation, Decreased cognition Patient Response to Treatment: Tolerated evaluation without adverse reaction Mood/Affect: Appropriate for circumstances Rehab Prognosis: Good, With continued PT status post acute discharge Visit RN Communication: Yes Medical Record Reviewed: Yes PT Type of Visit: Evaluation Precautions Activity: early mobility pass; okay to see per RN Equipment: RW: gait belt; IV pole Weight Bearing Status: no formal orders Telemetry/Bioinformatics Engineer: Yes Oxygen Used: room air Other: high fall risk, s/p illiofemoral endarectomy and angio plasty Pain Assessment Pain Assessment: 0-10 (never formally rates but appears to be in intense pain on RLE and RN made aware.) Response to Interventions: Pain unchanged (pain remained constent during evalution. cramping pain on RLE) Home Living Type of Home: Other (Comment) ([facility] living) Home Layout: One level Stairs to Enter: none Bathroom Shower/Tub: Walk-in shower Bathroom Toilet: Raised Bathroom Equipment: Grab bars in shower, Shower chair, Hand-held shower, Grab bars around toilet Bathroom Accessibility: Accessible via walker Home Equipment: Rolling walker, 4 Wheeled walker, Cane Other : no recent falls Prior Function Lives With: Son (lives with pt and [facility] living but does leave at times to tyler and complete other activites.) Receives Help From: Family (one local dtr that fills in for son when they are not home and 2nd dtr that is semi local and assist as able/needed) Level of Mobility: Independent with ADLs and functional transfers or gait (with use of RW or 4WW) Homemaking Assistance: Needs assistance Meal Prep: (shares with son) Laundry: Independent Cleaning: Total assist (cleaning service 2x wekk) Other: IND with ambulation with use of RW or 4WW, no recent falls ADL / IADL Hand Dominance: Right Hearing / Speech / Vision Hearing: Hard of hearing/hearing concerns Speech: Within Functional Limits Cognition Overall Cognitive Status: Within Functional Limits Sensation Overall Sensation Status: Within Functional Limits (denies n/t) Bed Mobility Supine to Sit: Mod assist Sit to Supine: (in chair at end of session with needs in reach and RN aware) Other: mod A needed to progress RLE off EOB 2/2 pain as well as to progress trunk to upright sitting. sat EOB 10-12 min for transfer prep and also to allow pain to reduce Transfers Sit to Stand: Mod assist Stand to Sit: Min assist Other: poor hand placement as pt had BL hands on RW to complte transfer. mod A needed to progress to upright sitting and there was a marked increase in time and effort to complete 2/2 pain Gait Base of Support: Within Functional Limits Pattern: Decreased farida, Antalgic gait, R Decreased heel strike, R Decreased foot clearance, R Decreased stance time Gait Assistance: Min assist Assistive Device: Rolling walker Gait Distance: 4' bed to chair Limiting Factors to Gait: Pain Other: ambulation is very slowed and limited by pain. pt requires min A to maintain balance and navigate RW. denies any dizziness or lightheaded feeling. increased verbal cues needed for proper sequence Balance Balance Evaluation: Exceptions to Functional Limits Sitting Balance: Static: Good Sitting Balance: Dynamic: Good Standing Balance: Static: Fair Standing Balance: Dynamic: Fair Other: standing balance limited d/t pain RLE Assessment: (limited d/t pain) LLE Assessment: (gross functional weakness 4/5) Activity Tolerance Endurance: Tolerates 30 minutes activity with rest breaks Other: limited by pain and required multiple breaks throughout. educated on PT purpose and POC and verbalizes understanding Plan Physical Therapy Care Plan Physical Therapy Care Plan (Active) Template: PT - Physical Therapy Problem: Bed Mobility Dates: Start: 01/02/24 Disciplines: PT Goal: Patient will perform bed mobility with Modified [place] Dates: Start: 01/02/24 Expected End: 01/08/24 Description: HOB elevated and use of rail as needed Disciplines: PT Problem: Gait Dates: Start: 01/02/24 Disciplines: PT Goal: Patient will perform gait with Modified [place] Dates: Start: 01/02/24 Expected End: 01/08/24 Description: With__RW__,__100__feet Goal Description: to facilitate household ambulation Disciplines: PT Problem: ROM Dates: Start: 01/02/24 Disciplines: PT Goal: Improve ROM Dates: Start: 01/02/24 Expected End: 01/08/24 Description: Of extremity/ location: R knee to 0-90 degrees To facilitate: improved ability to transfer Disciplines: PT Problem: Standing Balance Dates: Start: 01/02/24 Disciplines: PT Goal: Improve balance to good Dates: Start: 01/02/24 Expected End: 01/08/24 Description: Static with RW Dynamic with RW To promote safety with transfers and gait. Disciplines: PT Problem: Strength Dates: Start: 01/02/24 Disciplines: PT Goal: Improve strength Dates: Start: 01/02/24 Expected End: 01/08/24 Description: Pt will perform x15 reps, AROM, of all prescribed LE exercises to improve strength andfacilitate their ability to transfer and ambulate. Disciplines: PT Problem: Transfers Dates: Start: 01/02/24 Disciplines: PT Goal: Patient will perform transfers with Modified [place] Dates: Start: 01/02/24 Expected End: 01/08/24 Description: Goal Description: Using appropriate technique and hand placement for safety at home Disciplines: PT Physical Therapy Care Plan (Resolved) There are no resolved problems. 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 Encourage patient or legal national account representative to report early pain and ask for pain medicine when needed 2. Assess pain using appropriate pain scale and include the scale used when documenting 3. Administer analgesics based on type and severity of pain and evaluate response within appropriate time frame 4. Implement non-pharmacological measures as appropriate and evaluate response 5. Consider cultural and social influences on pain and pain management 6. Notify LIP if interventions ineffective or patient reports new pain 7. Monitor vital signs including pulse ox, end-tidal CO2 based on pain intervention 8. Reassess pain per policy 9. Teach patient or legal national account representative interventions for comforting Outcome: Progressing Note: Evaluation of progress towards goal: PRN pain medication available per patient request. Will continue to monitor. Problem: Safety Goal: Patient will be injury free during hospitalization Description: INTERVENTIONS: 1. Assess patient's risk for falls and implement fall prevention plan of care per policy 2. Provide and maintain a safe environment 3. Proper use of double Identifiers 4. Medication administration using the 5 rights 5. Hand hygiene 6. Specimens are labeled at the bedside 7. Instruct patient/ patient national account representative about use of safety devices 8. Include patient/ patient national account representative in decisions related to safety Outcome: Progressing Note: Evaluation of progress towards goal: Patient free from hospital injury. Will continue to assess risk for falls throughout shift. Problem: Infection Goal: Absence of infection during hospitalization Description: Interventions: 1. Assess and monitor for signs and symptoms of infection 2. Monitor lab/diagnostic results 3. Monitor all insertion sites i.e., indwelling lines, tubes and drains 4. Monitor endotracheal (as able) and nasal secretions for changes in amount and color 5. Administer medications as ordered 6. Instruct and encourage patient and family to use good hand hygiene technique 7. Identify and instruct patient/patient national account representative in use of appropriate isolation precautionsfor identified infection/symptoms 8. Provide and discuss with patient/patient national account representative on educational MDRO sheet 9. Encourage and monitor nutritional status daily and consult supervisor loading if indicated 10. Implement neutropenic guidelines as needed 11. Review exposure to history of communicable disease and recent travel history on admission 12. Encourage annual influenza vaccine 13. Encourage pneumonia vaccine Outcome: Progressing Note: Evaluation of progress towards goal: Monitor labs and vital signs. Patient afebrile at this time. Problem: Knowledge Deficit Goal: Patient/patient national account representative demonstrates understanding of disease process, treatment plan,medications, and discharge instructions Description: INTERVENTIONS 1. Complete learning assessment and assess knowledge base 2. Provide teaching at level of understanding 3. Provide teaching via preferred learning method(s) Outcome: Progressing Note: Evaluation of progress towards goal: Plan of care reviewed with patient. Medications discussed prior to administration. Problem: Discharge Planning Goal: Discharge to post-acute care, other facility, or home with appropriate resources Description: Patient's goal is: INTERVENTIONS 1. Conduct assessment to determine patient/family and health care team treatment goals, and need for post-acute services based on payer coverage, community resources, and patient preferences, and barriers to discharge 2. Coordinate with Social work, Care Navigation, and Utilization Review to arrange appropriate level of services according to patient's needs based on patient preference and payer coverage in collaboration with the physician and health care team 3. Address psychosocial, clinical, and financial barriers to discharge as identified in assessment in conjunction with the patient/family and health care team 4. Consult appropriate ancillary services (i.e.. PT/OT/ST, etc) as needed 5. Communicate with and update the patient/family, physician, and health care team regarding progress on the discharge plan 6. Identify discharge learning needs (meds, wound care, etc). 7. Arrange for needed discharge transportation as appropriate Outcome: Progressing Note: Evaluation of progress towards goal: Discharge planning and education reviewed with patient. * Op Note - Deuce Kirkland MD - 01/01/2024 1:53 PM EST Patient Name: Delicia Hsu Medical Record: [id number] Date of Operation: 01/02/2024 Preoperative Diagnosis: Right lower extremity critical limb ischemia with rest pain and tissue loss Postoperative Diagnosis: Same Procedure: 1. Right iliofemoral endarterectomy and bovine pericardial patch angioplasty 2. Right GSV harvest and high ligation of the great saphenous vein. 3. Right popliteal endarterectomy in GSV patch angioplasty 4. Right fem-pop bypass using 8 mm ring PTFE and GSV vein patch 5. Aortogram and pelvic angiogram with right common iliac stenting using 8 by 29 VBX covered balloon expandable stent 6. Completion right lower extremity angiogram Surgeon: Deuce Kirkland MD Anesthesia: General anesthesia Estimated Blood Loss: less than 100 mL Complications: None; patient tolerated the procedure well. Implants: 8 mm ring PTFE an 8 x 29 VBX stent Specimens: None Disposition: ICU - extubated and stable. Condition: stable Findings: Heavily calcified atherosclerotic plaque in both the common femoral and the popliteal artery. The GSV was sclerosed and small from the distal thigh down. Was able to use a relatively thick but large proximal GSV for the popliteal patch. I also ligated the GSV high ligation because she hasvenous ulcer that is nonhealing. History: This is a pleasant 88-year-old lady with right lower extremity nonhealing venous ulcer shehas combined arterial and venous insufficiency. She is here for arterial revascularization and highligation of her GSV at the same time. I discussed the procedure risks benefits and alternatives with her in the family informed consent was obtained patient was taken back to the OR. Operative Details: The patient was taken back to the operating room and placed in the supine position. Appropriate cardiopulmonary monitors were set. General anesthesia was induced. The abdomen rightleg and left upper thigh was prepped and draped in the usual sterile surgical fashion. After time-out and safety pause and antibiotics were given longitudinal incision was made on the right groin thecommon femoral external iliac profunda and SFA were all controlled using vessel loops. All brancheswere controlled using vessel loops. I then exposed the popliteal artery [id number]. The angiogram shows that there is constitution [id number]. To my surprise the heavy calcification in the pop liteal segment. I did high ligation of the GSV and harvested the very proximal segment of the GSV. I tunneled the graft of an 8 mm ringed PTFE. Give the patient heparin for an ACT above 250 and did alongitudinal arteriotomy in the common femoral external iliac artery and proximal SFA. Did endarterectomy of the external iliac common femoral proximal SFA in the origin of the profunda femoris artery. The plaque was tacked of the profunda femoral artery origin. Longitudinal arteriotomy was createdheavily calcified plaque was removed. GSV was used to create a patch here. Isn't constructed end-to-side anastomosis between the common femoral patch and the 8 mm ringed PTFE and the popliteal patch distally. We had excellent flow with a strong signals. I then obtained retrograde access in the common femoral in the right side. Placed catheter in the abdominal aorta and did an aortogram pelvic angiogram. There was high-grade stenosis in the common iliac artery that is known to us 8 x 29 VBX covered stent was used to treat this lesion. Of note this was heavily calcified lesion. I went conservative was the A29 to avoid disruption. We had a great result both radiologically and from flow standpoint. Completion angiogram showed wide open flow in the bypass and runoff through the AT down to the foot. Hemostasis was achieved heparin was reversed and the wounds were closed in layers using interru pted 3-0 Vicryl and 2-0 Vicryl followed by Prolene in the groin glue and Steri- Strips and below-knee incision was closed using 2-0 Vicryl and 2-0 Prolene vertical mattress. The GSV high ligation harvest site was closed using 3-0 Vicryl 4-0 Monocryl glue. Patient tolerated the procedure very well and sent to the ICU in good condition. Deuce Kirkland MD, QUENTIN, RPVI, FSVS, FACS [facility] Vascular Surgery * Perioperative Nursing Note - Nancy Rubio RN - 12/31/2023 2:29 PM EST Pre adm labs sent to Dr Kirkland [facility]* Discharge Planning Note - Ángela Bailey RN - 01/07/2024 12:59 PM EST DISCHARGE PLANNING NOTE [facility] Supervisor met with patient and daughter Joanna at bedside to let them know that [facility] isable to accept today. Joanna stated they were debating transporting the patient themselves, but sheis feeling the patient would be more comfortable with hospital arranged transport. S transport has been arranged for 5pm today. Patient's RN, patient, daughter Joanna, and facility have been updated. IMM provided to patient.Transport packet started. Awaiting discharge orders. - Ángela Bailey RN 01/07/24 1:01 PM Community Referral Form/medication reconciliation attached to [facility] for [facility]. HENS completed. Discharge packet complete and in chart slot. - Ángela Bailey RN 01/07/24 2:01 PM [facility] Progress note* Discharge Planning Note - Luli Moeller - 01/07/2024 12:26 PM EST DISCHARGE PLANNING NOTE BLS transport to [facility] via ptn confirme for 01/06 at 1700. [facility] Progress note* PT/OT/OPTICAL STORE MANAGER - Ang Winn PTA - 01/07/2024 11:55 AM EST Physical Therapy Treatment Discharge Recommendations PT Recommendations: Snf Facility SNF/ECF Comments: Recommending SNF as pt is a high fall risk requiring 2 person assist for all bed mobility and transfers. Pt unable to ambulate at this time. 6 Clicks: Basic Mobility Turning from your back to your side while in a flat bed without using bed rails?: A little Moving from lying on your back to sitting on side of flat bed without using bed rails?: A lot Moving to and from bed to a chair (including w/c)?: A lot Standing up from a chair using your arms (e.g. w/c or bedside chair)?: A lot To walk in hospital room?: A lot Climbing 3-5 steps with a railing?: Total Scoring 6 Clicks: Basic Mobility Raw Score: 12 CMS G Code Modifier: CL Patient Response to Treatment: Slow progress, decreased activity tolerance Assessment Patient Assessment Patient Response to Treatment: Slow progress, decreased activity tolerance Visit RN Communication: Yes Medical Record Reviewed: Yes PT Type of Visit: Treatment Precautions Activity: early mobility: pass; ok to see per RN Equipment: Gait belt, RW, ana stedy, bed/chair alarm, O2 via NC, beckman Telemetry/Bioinformatics Engineer: Yes Oxygen Used: 2LO2 via NC. Other: Fall risk, s/p RLE bypass Pain Assessment Pain Assessment: 0-10 Pain Score: 10 Pain Type: Chronic pain Pain Location: Leg Pain Orientation: Left, Right Pain Intervention(s): Repositioned, Ambulation/increased activity Response to Interventions: Pain unchanged Bed Mobility Supine to Sit: Max assist Sit to Supine: Unable to assess (NT, pt left sitting up in bedside chair with light and tray near.) Other: HOB elevated, use of siderail, assist for trunk and BLE movement. Transfers Sit to Stand: Mod assist Stand to Sit: Mod assist Bed to Chair: Min assist Other: cues for proper hand placement. Gait Base of Support: Within Functional Limits Pattern: Decreased farida, Antalgic gait, R Decreased heel strike, R Decreased foot clearance, R Decreased stance time Gait Assistance: Min assist Assistive Device: Rolling walker Gait Distance: 4' bed to chair Limiting Factors to Gait: Fatigue, Weakness, Pain Other: cues for sequencing and safety. Balance Sitting Balance: Static: Fair Sitting Balance: Dynamic: Fair Standing Balance: Static: Fair (-) Standing Balance: Dynamic: Poor (+) Other: Pt sat unsupported for approx. 8 minutes to improve balance. Activity Tolerance Endurance: Tolerates <30 minutes activity WITHOUT vital sign changes Other: rest breaks as needed Plan Physical Therapy Care Plan Physical Therapy Care Plan (Active) Template: PT - Physical Therapy Problem: Bed Mobility Dates: Start: 01/02/24 Disciplines: PT Goal: Patient will perform bed mobility with Modified [place] Dates: Start: 01/02/24 Expected End: 01/08/24 Description: HOB elevated and use of rail as needed Disciplines: PT Outcomes Date/Time User Outcome 01/07/24 1148 Ang Winn PTA Progressing 01/04/24 1142 Fanny Roberts PT Not Progressing Goal Note filed on 01/07/24 1148 by Ang Winn PTA Evaluation of progress towards goal: Problem: Gait Dates: Start: 01/02/24 Disciplines: PT Goal: Patient will perform gait with Modified [place] Dates: Start: 01/02/24 Expected End: 01/08/24 Description: With__RW__,__100__feet Goal Description: to facilitate household ambulation Disciplines: PT Outcomes Date/Time User Outcome 01/07/24 1148 Ang Winn PTA Progressing 01/04/24 1142 Fanny Roberts PT Not Progressing Goal Note filed on 01/07/24 1148 by Ang Winn PTA Evaluation of progress towards goal: Problem: ROM Dates: Start: 01/02/24 Disciplines: PT Goal: Improve ROM Dates: Start: 01/02/24 Expected End: 01/08/24 Description: Of extremity/ location: R knee to 0-90 degrees To facilitate: improved ability to transfer Disciplines: PT Outcomes Date/Time User Outcome 01/07/24 1148 Ang Winn PTA Progressing 01/04/24 1142 Fanny Roberts PT Not Progressing Goal Note filed on 01/07/24 1148 by Ang Winn PTA Evaluation of progress towards goal: Problem: Standing Balance Dates: Start: 01/02/24 Disciplines: PT Goal: Improve balance to good Dates: Start: 01/02/24 Expected End: 01/08/24 Description: Static with RW Dynamic with RW To promote safety with transfers and gait. Disciplines: PT Outcomes Date/Time User Outcome 01/07/24 1148 Ang Winn PTA Progressing 01/04/24 1142 Fanny Roberts PT Not Progressing Goal Note filed on 01/07/24 1148 by Ang Winn PTA Evaluation of progress towards goal: Problem: Strength Dates: Start: 01/02/24 Disciplines: PT Goal: Improve strength Dates: Start: 01/02/24 Expected End: 01/08/24 Description: Pt will perform x15 reps, AROM, of all prescribed LE exercises to improve strength andfacilitate their ability to transfer and ambulate. Disciplines: PT Outcomes Date/Time User Outcome 01/07/24 1148 Ang Winn PTA Progressing 01/04/24 1142 Fanny Roberts PT Not Progressing Goal Note filed on 01/07/24 1148 by Ang Winn PTA Evaluation of progress towards goal: Problem: Transfers Dates: Start: 01/02/24 Disciplines: PT Goal: Patient will perform transfers with Modified [place] Dates: Start: 01/02/24 Expected End: 01/08/24 Description: Goal Description: Using appropriate technique and hand placement for safety at home Disciplines: PT Outcomes Date/Time User Outcome 01/07/24 1148 Ang Winn PTA Progressing 01/04/24 1142 Fanny Roberts PT Not Progressing Goal Note filed on 01/07/24 1148 by Ang Winn PTA Evaluation of progress towards goal: Physical Therapy Care Plan (Resolved) There are no resolved problems. 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 [facility]11-29-2024 History of Present illness Narrative* Hilda Smith MD - 01/07/2024 10:01 AM EST Images from the original note were not included. Delicia Hsu [id number] CONSULTING SERVICE: INFECTIOUS DISEASES REASON FOR CONSULTATION: Suspected urinary tract infection C diff IMPRESSION/ RECOMMENDATIONS: Received steroids 01/01/2024 Fever Leukocytosis, multifactorial Blood cultures remain negative to date Follow serial WBC counts Follow serial temperatures Acute urinary retention Urinary tract infection Urine culture Ampicillin nitrofurantoin and quinolone resistant Klebsiella pneumoniae 01/03/2024 Continue Rocephin day 4 Patient has tolerated Keflex in the past multiple times according to her daughter Keflex p.o. at discharge to be continued till 01/10/2024 Left lower extremity wound Peripheral vascular disease Status post angiography right lower extremity/ Angioplasty and iliac stent placement Bovine patch angioplasty cut down femoral and Iliofemoral right lower extremity / Femoral artery to popliteal artery below-knee bypass with vein patch/ hi GSV ligation and harvest right lower extremity/ Endarterectomy femoral and ileal femoral 01/01/2024 Wound care to follow Reported enlargement of common bile duct status post cholecystectomy Patient asymptomatic Reported right thigh swelling and edema or blood in the subcutaneous tissues medially with swellingand small bubbles of gas likely postoperative in nature Will defer management of rest of the issues mentioned on CT to vascular surgery Patient can follow-up with her Infectious Disease doctor after discharge Will check stool for C diff if diarrhea starts 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, History of Microscopic colitis Chronic kidney disease stage III Cardiac dysrhythmias Coronary artery disease Hypertension Dyslipidemia Peripheral vascular disease Venous insufficiency lower extremities Obstructive sleep apnea Peptic ulcer disease History of GI bleed Fracture left hip 2017 Gastroesophageal reflux disease Sensorineural hearing loss History of skin cancer removal History of angioplasty iliac iliac shockwave intravascular lithotripsy right- sided 11/18/2023 History of left hip fracture surgery 05/2017 History of left total hip arthroplasty 2019 Continue supportive care Defer the rest of the issues to PMD and other consultants Thank you very much for allowing me to participate in this patient care WORKUP REVIEWED: Blood cultures remain negative to date Urine culture quinolone nitrofurantoin and ampicillin resistant Klebsiella pneumoniae 01/03/2024 All pertinent labs reviewed by me as described below Imaging Studies: CT abdomen and pelvis without contrast Result Date: 01/04/2024 CLINICAL INFORMATION: Sepsis. TECHNIQUE: CT Abdomen and Pelvis without intravenous contrast. All CTscans at this facility use dose modulation, iterative reconstruction, and/or weight based dosing when appropriate to reduce radiation dose to as low as reasonably achievable. COMPARISON: No relevant prior studies available. FINDINGS: CT of the abdomen and pelvis without contrast demonstrate that there are bilateral pleural effusions, greater on the right, that are likely too small to consider thoracentesis. Some patchy airspace disease is present at the left lung base and, to a lesser extent, the right lung base. They are associated with air bronchograms. Coronary artery and arterial calcification is present. Some gas in the subcutaneous tissues of the right lower quadrant may be due to prior injection. 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 The liver, cholecystectomy clips, spleen, pancreas, and adrenal glands are grossly unremarkable. The common bile duct may be enlarged. If clinically indicated, ultrasound may be useful. Dense calcification is present within the iliac vessels. A stent is present within the right superficial femoral artery. There is no free intraperitoneal air, free intraperitoneal fluid, or obvious pelvic abscess.. There are edematous changes within the medial right proximal thigh, which is swollen. Small bubbles of gas are present within the medial swollen muscles. Deep venous thrombosis cannot be assessed. There is no obvious fluid collection. There are bilateral renal cysts, much larger on the left. A small calcification in the rightrenal hilum measures 2 mm and may be within a vessel. IMPRESSION: * There is swelling of the right t high with edema or blood within the subcutaneous tissues medially and also swelling and small bubbles of gas within the medial right proximal thigh musculature. Please correlate for hemorrhage from the recent 01/01/2024 vascular surgery procedure. Doppler ultrasound may be useful to exclude deep venous thrombosis in this swollen lower extremity. * There may be enlargement of the common bile duct status post cholecystectomy. If further evaluation is clinically indicated, liver function test and possible right upper quadrant ultrasound may be useful. * There is no obvious abscess or other inflammatory change in the abdomen or pelvis Finalized by Zachary Sampson MD on 01/04/2024 4:21 PM Fluoroscopy track vascular operative Result Date: 01/01/2024 Narrative: Please refer to the vascular OP note for a dictation on this exam. Results from last 7 days Lab Units 01/07/24 03301/06/24 0420 01/05/24 1307 WBC X10E9/L 9.2 9.0 12.9* HEMOGLOBIN g/dL 8.3* 8.7* 9.9* HEMATOCRIT % 23.7* 25.0* 29.2* PLATELETS X10E9/L 326 300 309 Results from last 7 days Lab Units 01/07/24 0331 01/06/24 0420 01/05/24 1307 01/03/24 0459 01/02/24 0200 POTASSIUM mmol/L 3.9 4.4 4.4 < > 4.7 CHLORIDE mmol/L 99 101 101 < > 106 CO2 mmol/L 28 24 23 < > 21* BUN mg/dL 24 20 21 < > 22 CREATININE mg/dL 0.86 0.84 0.94 < > 0.96 EGFR (CKD-EPI)NON-RACE DEPENDENT ml/min/1.73sq.m 65 67 59* < > 57* CALCIUM mg/dL 8.9 8.9 9.1 < > 8.4* MAGNESIUM mg/dL -- -- -- -- 1.3* < > = values in this interval not displayed. Cultures: Microbiology Results Procedure Component Value Units Date/Time Blood Culture [[id number]] Collected: 01/04/241217 Specimen: Blood Updated: 01/06/241307 Culture NO GROWTH 2 DAYS Blood Culture [[id number]] Collected: 01/04/241216 Specimen: Blood Updated: 01/06/24 130 Culture NO GROWTH 2 DAYS Urine culture [[id number]] (Abnormal) (Susceptibility) Collected: 01/03/24 1405 Specimen: Urine Updated: 01/05/24 0955 Culture >100,000 ORGANISMS/mL KLEBSIELLA PNEUMONIAE Susceptibility Klebsiella Pneumoniae JODY METHOD AMP/SULBACTAM 4/2 Susceptible Ampicillin >=32 Resistant Cefazolin <=4 Susceptible Ceftriaxone <=0.25 Susceptible Ciprofloxacin 1 Resistant Gentamicin <=1 Susceptible Levofloxacin 1 Intermediate Nitrofurantoin 128 Resistant PIPERACIL/TAZOBACTAM <=4 Susceptible Tobramycin <=1 Susceptible TRIMETH/SULFAMETHOXAZOLE <=1/19 Susceptible PROBLEMS MANAGED BY OTHERS: Microscopic colitis Chronic kidney disease Stage III Cardiac dysrhythmias Coronary artery disease Hypertension Dyslipidemia Peripheral vascular disease Obstructive sleep apnea Peptic ulcer disease History of GI bleed Fracture left hip 2017 Gastroesophageal reflux disease Sensorineural hearing loss History of skin cancer removal Recurrent C diff in December and January, History of left hip fracture surgery 05/2017 History of left total hip arthroplasty 2019 Angiography right lower extremity 01/01/2024 Angioplasty and iliac stent placement 01/01/2024 Bovine patch angioplasty cut down femoral and Iliofemoral right lower extremity 01/01/2024 Femoral artery to popliteal artery below-knee bypass with vein patch/ hi GSV ligation and harvest right lower extremity 01/01/2024 Endarterectomy femoral and ileal femoral 01/01/2024 History of angioplasty iliac iliac shockwave intravascular lithotripsy right- sided 11/18/2023 Arthroscopy with open rotator cuff repair left sided 2011 History of cataract extraction History of cholecystectomy 2009 History of coronary artery bypass grafting x5 in 1998 History of eye surgery History of hernia repair 03/2012 History of sclerotherapy right lower extremity 12/24/2023 Mid urethral sling placement in the past Reported penicillin allergy causing severe rash Reported Levaquin allergy causing sleeplessness and restless legs Your other diagnosis CHIEF COMPLAINT: Elective admission for right lower extremity revascularization for critical limb ischemia with restpain and tissue loss HISTORY OF PRESENT ILLNESS: 88 y.o. Female admitted to the hospital with above-mentioned reported chief complaints as of 01/01/2024. Past medical history significant for recurrent C diff coronary artery disease cardiac dysrhythmia hypertension dyslipidemia peripheral vascular disease peptic ulcer disease obstructive sleep apnea gastroesophageal reflux disease GI bleed among others. Patient was hospitalized, she underwent Angiography right lower extremity/ Angioplasty and iliac stent placement Bovine patch angioplasty cut down femoral and Iliofemoral right lower extremity / Femoral artery to popliteal artery below-knee bypass with vein patch/ hi GSV ligation and harvest right lower extremity/ Endarterectomy femoral and ileal femoral as of 01/01/2024, patient also has historyof of angioplasty iliac iliac shockwave intravascular lithotripsy right-sided 11/18/2023. She spiked a temperature of 101.3 F as of 01/03/2024. Her white count on the was 7.5, on the patient received a dose of dexamethasone and underwent the above-mentioned procedure. The white count went to 13.3 and then 11.9, 14.3 in 15.7. She received a dose of clindamycin as of 01/01/2024. Patient also developed urinary retention, her urinalysis revealed 30 WBCs 1 squamous epithelial cells positive nitrite and moderate leukocyte esterase, as a result urine cultures were ordered and Urology was consulted. She was described to have C diff in the past, she was also reported to have urinary tract infectionin the past she follows and Infectious Disease doctor at [facility] in [facility]. SUBJECTIVE: Patient reports improvement in symptoms. No nausea vomiting. No new events reported by nursing staff. PHYSICAL EXAMINATION: Seen With NS. GENERAL: Well built, well developed. No distress. Nontoxic. EYES: [place] conjunctivae. HEENT: No thrush. Neck supple. No JVD. CHEST: No use of accessory muscles of respiration. Lungs clear to auscultation without any added sounds air exchange good. Cardiovascular exam: Normal S1-S2. No gallops, rubs, or murmurs. ABDOMEN: Soft, nontender, nondistended. Bowel sounds positive. RENAL: No suprapubic tenderness. Extremities: No clubbing, cyanosis. Positive edema. No peripheral stigmata of infective endocarditis at present. SKIN: IV site looks fine. No rash. Neurological: Alert and responsive. Musculoskeletal: No large joint effusions of the extremities. Right lower extremity and foot in dressing. I have personally reviewed the past medical history, past surgical history, medications, social history, and family history, and I have updated the database accordingly. PAST MEDICAL HISTORY: Past Medical History: Diagnosis Date Anesthesia complication 2018 HAD HALLUCINATIONS FOR A FEW DAYS AFTER HIP SURGERY Arrhythmia Arthritis C. difficile diarrhea 12/2022 HOSPITALIZED, 01/2023 Cataract Cholecystitis Chronic kidney disease Colitis Coronary artery disease Critical limb ischemia of right lower extremity ([facility]) Dental disease UPPER AND LOWER DENTURE DIAZ (dyspnea on exertion) Fractures 2018 LEFT HIP GERD (gastroesophageal reflux disease) HL (hearing loss) Hyperlipidemia Hypertension Microscopic colitis PAD (peripheral artery disease) ([facility]) Peptic ulceration BLEEDING ULCER ADMITTED 2018 X13 DAYS TATYANA Rash Skin cancer REMOVED Sleep apnea No CPAP Thin skin Urinary tract infection CHRONIC, SEES ID EVERY 3 MONTHS Visual impairment Wound of ankle RIGHT SINCE 07/2023 PAST SURGICAL HISTORY: Past Surgical History: Procedure Laterality Date ABDOMINAL SURGERY ANGIOGRAM EXTREMITY LOWER Right 01/01/2024 Performed by Deuce Kirkland MD at [facility] PROC ANGIOPLASTY ILIAC STENT PLACEMENT Right 01/01/2024 Performed by Deuce Kirkland MD at [facility] PROC ANGIOPLASTY ILIAC-ILIAC SHOCKWAVE INTRAVASCULAR LITHOTRIPSY Right 11/18/2023 Performed by Deuce Kirkland MD at [facility] PROC ARTHROSCOPY SHOULDER W/ OPEN ROTATOR CUFF REPAIR Left 2011 BOVINE PATCH ANGIOPLASTY CUTDOWN FEMORAL Right 01/01/2024 Performed by Deuce Kirkland MD at [facility] PROC BOVINE PATCH ANGIOPLASTY ILEOFEMORAL Right 01/01/2024 Performed by Deuce Kirkland MD at [facility] PROC BYPASS ARTERY FEMORAL BELOW KNEE POPLITEAL W/ VEIN PATCH/ HIGH GSV LIGATION AND HARVEST Right 01/01/2024 Performed by Deuce Kirkland MD at [facility] PROC CARDIAC SURGERY CATARACT EXTRACTION CHOLECYSTECTOMY N/A 2008 CORONARY ARTERY BYPASS GRAFT 1998 x 5 ENDARTERECTOMY FEMORAL AND ILIOFEMORAL ENDARTERECTOMY Right 01/01/2024 Performed by Deuce Kirkland MD at [facility] PROC EYE SURGERY HERNIA REPAIR N/A 03/2012 HIP FRACTURE SURGERY Left 05/2017 HYSTERECTOMY N/A JOINT REPLACEMENT lower ext angiogram Bilateral 01/07/2022 Performed by Taryn Belle MD at [facility] CARDIAC CATH LABS SCLEROTHERAPY LOWER EXTREMITY Right 12/24/2023 Performed by Deuce Kirkland MD at [facility] TOTAL HIP ARTHROPLASTY Left 2020 VASCULAR SURGERY Angiogram ALLERGIES: Allergies Allergen Reactions Nsaids (Non-Steroidal Anti-Inflammatory Drug) Other (See Comments) ELEVATED KIDNEY LABS Penicillins Rash Levofloxacin Other (See Comments) Sleeplessness restless legs Antihistamine 12 Hour Other (See Comments) restlessness Diphenhydramine Hcl Other (See Comments) restlessness Ezetimibe Other (See Comments) unknown Gemfibrozil Other (See Comments) unknown Histamine H2 Inhibitors Other (See Comments) restlessness Phenergan [Promethazine] Anxiety JITTERY Propoxyphene N-Acetaminophen Other (See Comments) JITTERY NOT ALLERGIC TO TYLENOL SOCIAL HISTORY: Social History Socioeconomic History Marital status: Tobacco Use Smoking status: Former Current packs/day: 0.00 Types: Cigarettes Quit date: 12/30/1993 Years since quittin.0 Smokeless tobacco: Never Tobacco comments: QUIT IN 1989 Vaping Use Vaping status: Never Used Substance and Sexual Activity Alcohol use: Yes Alcohol/week: 1.0 standard drink of alcohol Types: 1 Glasses of wine per week Comment: monthly Drug use: Never Sexual activity: Defer Social Drivers of Health Financial Resource Strain: Low Risk (11/18/2023) Overall Financial Resource Strain (CARDIA) Difficulty of Paying Living Expenses: Not hard at all Food Insecurity: No Food Insecurity (01/02/2024) Hunger Screening Food Insecurity - Worry: Never True Food Insecurity - Inability: Never True Transportation Needs: No Transportation Needs (01/02/2024) PRAPARE - Transportation Lack of Transportation (Medical): No Lack of Transportation (Non-Medical): No Interpersonal Safety: Not At Risk (01/02/2024) Humiliation, Afraid, Rape, and Kick questionnaire Fear of Current or Ex-Partner: No Emotionally Abused: No Physically Abused: No Sexually Abused: No Housing Instability: Low Risk (01/02/2024) Housing Instability Housing Instability: No FAMILY HISTORY: Family History Problem Relation Age of Onset Cerebral aneurysm Mother Heart failure Father Cancer Sister Cancer Brother Anesthesia problems Neg Hx Note was updated later by me after physical examination and completion of the assessment. Pertinent labs vital signs imaging studies medications all noted. This note was created with the assistance of a speech-recognition program. Although the intention is to generate a document that actually reflects the content of the visit, no guarantees can be provided that every mistake has been identified and corrected by editing. Signed by, Hilda Smith MD. Answering service: Perfect serve: [phone] * Hilda Smith MD - 01/06/2024 10:40 AM EST Images from the original note were not included. Delicia Hsu [id number] CONSULTING SERVICE: INFECTIOUS DISEASES REASON FOR CONSULTATION: Suspected urinary tract infection C diff IMPRESSION/ RECOMMENDATIONS: Received steroids 01/01/2024 Fever Leukocytosis, multifactorial Blood cultures remain negative to date Follow serial WBC counts Follow serial temperatures Acute urinary retention Urinary tract infection Urine culture Ampicillin nitrofurantoin and quinolone resistant Klebsiella pneumoniae 01/03/2024 Discontinue cefepime Start Rocephin Left lower extremity wound Peripheral vascular disease Status post angiography right lower extremity/ Angioplasty and iliac stent placement Bovine patch angioplasty cut down femoral and Iliofemoral right lower extremity / Femoral artery to popliteal artery below-knee bypass with vein patch/ hi GSV ligation and harvest right lower extremity/ Endarterectomy femoral and ileal femoral 01/01/2024 Wound care to follow Reported enlargement of common bile duct status post cholecystectomy Patient asymptomatic Reported right thigh swelling and edema or blood in the subcutaneous tissues medially with swellingand small bubbles of gas likely postoperative in nature Will defer management of rest of the issues mentioned on CT to vascular surgery Patient can follow-up with her Infectious Disease doctor after discharge Will check stool for C diff if diarrhea starts 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, History of Microscopic colitis Chronic kidney disease stage III Cardiac dysrhythmias Coronary artery disease Hypertension Dyslipidemia Peripheral vascular disease Venous insufficiency lower extremities Obstructive sleep apnea Peptic ulcer disease History of GI bleed Fracture left hip 2017 Gastroesophageal reflux disease Sensorineural hearing loss History of skin cancer removal History of angioplasty iliac iliac shockwave intravascular lithotripsy right- sided 11/18/2023 History of left hip fracture surgery 05/2017 History of left total hip arthroplasty 2019 Continue supportive care Defer the rest of the issues to PMD and other consultants Thank you very much for allowing me to participate in this patient care WORKUP REVIEWED: Blood cultures remain negative to date Urine culture quinolone nitrofurantoin and ampicillin resistant Klebsiella pneumoniae 01/03/2024 All pertinent labs reviewed by me as described below Imaging Studies: CT abdomen and pelvis without contrast Result Date: 01/04/2024 CLINICAL INFORMATION: Sepsis. TECHNIQUE: CT Abdomen and Pelvis without intravenous contrast. All CTscans at this facility use dose modulation, iterative reconstruction, and/or weight based dosing when appropriate to reduce radiation dose to as low as reasonably achievable. COMPARISON: No relevant prior studies available. FINDINGS: CT of the abdomen and pelvis without contrast demonstrate that there are bilateral pleural effusions, greater on the right, that are likely too small to consider thoracentesis. Some patchy airspace disease is present at the left lung base and, to a lesser extent, the right lung base. They are associated with air bronchograms. Coronary artery and arterial calcification is present. Some gas in the subcutaneous tissues of the right lower quadrant may be due to prior injection. 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 The liver, cholecystectomy clips, spleen, pancreas, and adrenal glands are grossly unremarkable. The common bile duct may be enlarged. If clinically indicated, ultrasound may be useful. Dense calcification is present within the iliac vessels. A stent is present within the right superficial femoral artery. There is no free intraperitoneal air, free intraperitoneal fluid, or obvious pelvic abscess.. There are edematous changes within the medial right proximal thigh, which is swollen. Small bubbles of gas are present within the medial swollen muscles. Deep venous thrombosis cannot be assessed. There is no obvious fluid collection. There are bilateral renal cysts, much larger on the left. A small calcification in the rightrenal hilum measures 2 mm and may be within a vessel. IMPRESSION: * There is swelling of the right t high with edema or blood within the subcutaneous tissues medially and also swelling and small bubbles of gas within the medial right proximal thigh musculature. Please correlate for hemorrhage from the recent 01/01/2024 vascular surgery procedure. Doppler ultrasound may be useful to exclude deep venous thrombosis in this swollen lower extremity. * There may be enlargement of the common bile duct status post cholecystectomy. If further evaluation is clinically indicated, liver function test and possible right upper quadrant ultrasound may be useful. * There is no obvious abscess or other inflammatory change in the abdomen or pelvis Finalized by Zachary Sampson MD on 01/04/2024 4:21 PM Fluoroscopy track vascular operative Result Date: 01/01/2024 Narrative: Please refer to the vascular OP note for a dictation on this exam. Results from last 7 days Lab Units 01/06/24 0420 01/05/24 1307 01/04/24 0506 WBC X10E9/L 9.0 12.9* 15.7* HEMOGLOBIN g/dL 8.7* 9.9* 8.8* HEMATOCRIT % 25.0* 29.2* 25.8* PLATELETS X10E9/L 300 309 224 Results from last 7 days Lab Units 01/06/24 0420 01/05/24 1307 01/04/24 1218 01/04/24 0506 01/03/24 0459 01/02/24 0200 POTASSIUM mmol/L 4.4 4.4 4.4 5.4* < > 4.7 CHLORIDE mmol/L 101 101 -- 103 < > 106 CO2 mmol/L 24 23 -- 23 < > 21* BUN mg/dL 20 21 -- 21 < > 22 CREATININE mg/dL 0.84 0.94 -- 1.11* < > 0.96 EGFR (CKD-EPI)NON-RACE DEPENDENT ml/min/1.73sq.m 67 59* -- 48* < > 57* CALCIUM mg/dL 8.9 9.1 -- 8.6 < > 8.4* MAGNESIUM mg/dL -- -- -- -- -- 1.3* < > = values in this interval not displayed. Cultures: Microbiology Results Procedure Component Value Units Date/Time Blood Culture [[id number]] Collected: 01/04/24 1218 Specimen: Blood Updated: 01/05/24 1308 Culture NO GROWTH 1 DAY Blood Culture [[id number]] Collected: 01/04/24 1217 Specimen: Blood Updated: 01/05/24 1308 Culture NO GROWTH 1 DAY Urine culture [[id number]] (Abnormal) (Susceptibility) Collected: 01/03/24 1405 Specimen: Urine Updated: 01/05/24 0955 Culture >100,000 ORGANISMS/mL KLEBSIELLA PNEUMONIAE Susceptibility Klebsiella Pneumoniae JODY METHOD AMP/SULBACTAM 4/2 Susceptible Ampicillin >=32 Resistant Cefazolin <=4 Susceptible Ceftriaxone <=0.25 Susceptible Ciprofloxacin 1 Resistant Gentamicin <=1 Susceptible Levofloxacin 1 Intermediate Nitrofurantoin 128 Resistant PIPERACIL/TAZOBACTAM <=4 Susceptible Tobramycin <=1 Susceptible TRIMETH/SULFAMETHOXAZOLE <=/19 Susceptible PROBLEMS MANAGED BY OTHERS: Microscopic colitis Chronic kidney disease Stage III Cardiac dysrhythmias Coronary artery disease Hypertension Dyslipidemia Peripheral vascular disease Obstructive sleep apnea Peptic ulcer disease History of GI bleed Fracture left hip 2017 Gastroesophageal reflux disease Sensorineural hearing loss History of skin cancer removal Recurrent C diff in December and January, History of left hip fracture surgery 05/2017 History of left total hip arthroplasty 2019 Angiography right lower extremity 01/01/2024 Angioplasty and iliac stent placement 01/01/2024 Bovine patch angioplasty cut down femoral and Iliofemoral right lower extremity 01/01/2024 Femoral artery to popliteal artery below-knee bypass with vein patch/ hi GSV ligation and harvest right lower extremity 01/01/2024 Endarterectomy femoral and ileal femoral 01/01/2024 History of angioplasty iliac iliac shockwave intravascular lithotripsy right- sided 11/18/2023 Arthroscopy with open rotator cuff repair left sided 2011 History of cataract extraction History of cholecystectomy 2009 History of coronary artery bypass grafting x5 in 1998 History of eye surgery History of hernia repair 03/2012 History of sclerotherapy right lower extremity 12/24/2023 Mid urethral sling placement in the past Reported penicillin allergy causing severe rash Reported Levaquin allergy causing sleeplessness and restless legs Your other diagnosis CHIEF COMPLAINT: Elective admission for right lower extremity revascularization for critical limb ischemia with restpain and tissue loss HISTORY OF PRESENT ILLNESS: 88 y.o. Female admitted to the hospital with above-mentioned reported chief complaints as of 01/01/2024. Past medical history significant for recurrent C diff coronary artery disease cardiac dysrhythmia hypertension dyslipidemia peripheral vascular disease peptic ulcer disease obstructive sleep apnea gastroesophageal reflux disease GI bleed among others. Patient was hospitalized, she underwent Angiography right lower extremity/ Angioplasty and iliac stent placement Bovine patch angioplasty cut down femoral and Iliofemoral right lower extremity / Femoral artery to popliteal artery below-knee bypass with vein patch/ hi GSV ligation and harvest right lower extremity/ Endarterectomy femoral and ileal femoral as of 01/01/2024, patient also has historyof of angioplasty iliac iliac shockwave intravascular lithotripsy right-sided 11/18/2023. She spiked a temperature of 101.3 F as of 01/03/2024. Her white count on the was 7.5, on the patient received a dose of dexamethasone and underwent the above-mentioned procedure. The white count went to 13.3 and then 11.9, 14.3 in 15.7. She received a dose of clindamycin as of 01/01/2024. Patient also developed urinary retention, her urinalysis revealed 30 WBCs 1 squamous epithelial cells positive nitrite and moderate leukocyte esterase, as a result urine cultures were ordered and Urology was consulted. She was described to have C diff in the past, she was also reported to have urinary tract infectionin the past she follows and Infectious Disease doctor at [facility] in [facility]. SUBJECTIVE: Patient reports improvement in symptoms. No nausea vomiting. No new events reported by nursing staff. PHYSICAL EXAMINATION: Seen With NS. GENERAL: Well built, well developed. No distress. Nontoxic. EYES: [place] conjunctivae. HEENT: No thrush. Neck supple. No JVD. CHEST: No use of accessory muscles of respiration. Lungs clear to auscultation without any added sounds air exchange good. Cardiovascular exam: Normal S1-S2. No gallops, rubs, or murmurs. ABDOMEN: Soft, nontender, nondistended. Bowel sounds positive. RENAL: No suprapubic tenderness. Extremities: No clubbing, cyanosis. Positive edema. No peripheral stigmata of infective endocarditis at present. SKIN: IV site looks fine. No rash. Neurological: Alert and responsive. Musculoskeletal: No large joint effusions of the extremities. Right lower extremity and foot in dressing. I have personally reviewed the past medical history, past surgical history, medications, social history, and family history, and I have updated the database accordingly. PAST MEDICAL HISTORY: Past Medical History: Diagnosis Date Anesthesia complication 2018 HAD HALLUCINATIONS FOR A FEW DAYS AFTER HIP SURGERY Arrhythmia Arthritis C. difficile diarrhea 12/2022 HOSPITALIZED, 01/2023 Cataract Cholecystitis Chronic kidney disease Colitis Coronary artery disease Critical limb ischemia of right lower extremity ([facility]) Dental disease UPPER AND LOWER DENTURE DIAZ (dyspnea on exertion) Fractures 2018 LEFT HIP GERD (gastroesophageal reflux disease) HL (hearing loss) Hyperlipidemia Hypertension Microscopic colitis PAD (peripheral artery disease) ([facility]) Peptic ulceration BLEEDING ULCER ADMITTED 2018 X13 DAYS TATYANA Rash Skin cancer REMOVED Sleep apnea No CPAP Thin skin Urinary tract infection CHRONIC, SEES ID EVERY 3 MONTHS Visual impairment Wound of ankle RIGHT SINCE 07/2023 PAST SURGICAL HISTORY: Past Surgical History: Procedure Laterality Date ABDOMINAL SURGERY ANGIOGRAM EXTREMITY LOWER Right 01/01/2024 Performed by Deuce Kirkland MD at [facility] PROC ANGIOPLASTY ILIAC STENT PLACEMENT Right 01/01/2024 Performed by Deuce Kirkland MD at [facility] PROC ANGIOPLASTY ILIAC-ILIAC SHOCKWAVE INTRAVASCULAR LITHOTRIPSY Right 11/18/2023 Performed by Deuce Kirkland MD at [facility] PROC ARTHROSCOPY SHOULDER W/ OPEN ROTATOR CUFF REPAIR Left 2011 BOVINE PATCH ANGIOPLASTY CUTDOWN FEMORAL Right 01/01/2024 Performed by Deuce Kirkland MD at [facility] PROC BOVINE PATCH ANGIOPLASTY ILEOFEMORAL Right 01/01/2024 Performed by Deuce Kirkland MD at [facility] PROC BYPASS ARTERY FEMORAL BELOW KNEE POPLITEAL W/ VEIN PATCH/ HIGH GSV LIGATION AND HARVEST Right 01/01/2024 Performed by Deuce Kirkland MD at [facility] PROC CARDIAC SURGERY CATARACT EXTRACTION CHOLECYSTECTOMY N/A 2008 CORONARY ARTERY BYPASS GRAFT 1999 x 5 ENDARTERECTOMY FEMORAL AND ILIOFEMORAL ENDARTERECTOMY Right 01/01/2024 Performed by Deuce Kirkland MD at [facility] PROC EYE SURGERY HERNIA REPAIR N/A 03/2012 HIP FRACTURE SURGERY Left 05/2017 HYSTERECTOMY N/A JOINT REPLACEMENT lower ext angiogram Bilateral 01/07/2022 Performed by Taryn Belle MD at [facility] CARDIAC CATH LABS SCLEROTHERAPY LOWER EXTREMITY Right 12/24/2023 Performed by Deuce Kirkland MD at [facility] TOTAL HIP ARTHROPLASTY Left 2019 VASCULAR SURGERY Angiogram ALLERGIES: Allergies Allergen Reactions Nsaids (Non-Steroidal Anti-Inflammatory Drug) Other (See Comments) ELEVATED KIDNEY LABS Penicillins Rash Levofloxacin Other (See Comments) Sleeplessness restless legs Antihistamine 12 Hour Other (See Comments) restlessness Diphenhydramine Hcl Other (See Comments) restlessness Ezetimibe Other (See Comments) unknown Gemfibrozil Other (See Comments) unknown Histamine H2 Inhibitors Other (See Comments) restlessness Phenergan [Promethazine] Anxiety JITTERY Propoxyphene N-Acetaminophen Other (See Comments) JITTERY NOT ALLERGIC TO TYLENOL SOCIAL HISTORY: Social History Socioeconomic History Marital status: Tobacco Use Smoking status: Former Current packs/day: 0.00 Types: Cigarettes Quit date: 12/30/1993 Years since quittin.0 Smokeless tobacco: Never Tobacco comments: QUIT IN 1989 Vaping Use Vaping status: Never Used Substance and Sexual Activity Alcohol use: Yes Alcohol/week: 1.0 standard drink of alcohol Types: 1 Glasses of wine per week Comment: monthly Drug use: Never Sexual activity: Defer Social Drivers of Health Financial Resource Strain: Low Risk (11/18/2023) Overall Financial Resource Strain (CARDIA) Difficulty of Paying Living Expenses: Not hard at all Food Insecurity: No Food Insecurity (01/02/2024) Hunger Screening Food Insecurity - Worry: Never True Food Insecurity - Inability: Never True Transportation Needs: No Transportation Needs (01/02/2024) PRAPARE - Transportation Lack of Transportation (Medical): No Lack of Transportation (Non-Medical): No Interpersonal Safety: Not At Risk (01/02/2024) Humiliation, Afraid, Rape, and Kick questionnaire Fear of Current or Ex-Partner: No Emotionally Abused: No Physically Abused: No Sexually Abused: No Housing Instability: Low Risk (01/02/2024) Housing Instability Housing Instability: No FAMILY HISTORY: Family History Problem Relation Age of Onset Cerebral aneurysm Mother Heart failure Father Cancer Sister Cancer Brother Anesthesia problems Neg Hx Note was updated later by me after physical examination and completion of the assessment. Pertinent labs vital signs imaging studies medications all noted. This note was created with the assistance of a speech-recognition program. Although the intention is to generate a document that actually reflects the content of the visit, no guarantees can be provided that every mistake has been identified and corrected by editing. Signed by, Hilda Smith MD. Answering service: Perfect serve: [phone] * Gracy Lim MD - 01/05/2024 1:00 PM EST Images from the original note were not included. Interval History: No acute events overnight. No new complaints this morning. Objective: Current Medications acetic acid, 20 mL, irrigation, BID albuterol sulfate, 10 mg, nebulization, Once AND sodium chloride 0.9 % (PF), 4 mL, nebulization, Once [COMPLETED] cefepime (MAXIPIME) IV, 1,000 mg, intravenous, Once FOLLOWED BY cefepime (MAXIPIME)IV, 1,000 mg, intravenous, Q12H clopidogreL, 75 mg, oral, Daily docusate sodium, 100 mg, oral, Daily gabapentin, 100 mg, oral, TID rivaroxaban, 2.5 mg, oral, BID with meals Allergies Allergies Allergen Reactions Nsaids (Non-Steroidal Anti-Inflammatory Drug) Other (See Comments) ELEVATED KIDNEY LABS Penicillins Rash Levofloxacin Other (See Comments) Sleeplessness restless legs Antihistamine 12 Hour Other (See Comments) restlessness Diphenhydramine Hcl Other (See Comments) restlessness Ezetimibe Other (See Comments) unknown Gemfibrozil Other (See Comments) unknown Histamine H2 Inhibitors Other (See Comments) restlessness Phenergan [Promethazine] Anxiety JITTERY Propoxyphene N-Acetaminophen Other (See Comments) JITTERY NOT ALLERGIC TO TYLENOL Labs Results from last 7 days Lab Units 01/04/24 0506 01/03/24 0459 01/02/24 0200 01/01/24204412/31/23 0937 WBC X10E9/L 15.7* 14.3* 11.9* 13.3* 7.5 HEMOGLOBIN g/dL 8.8* 9.2* 8.8* 8.9* 10.3* HEMATOCRIT % 25.8* 27.1* 25.6* 25.8* 29.8* PLATELETS X10E9/L 224 303 285 270 387 Results from last 7 days Lab Units 01/05/24 0730 01/04/24 2103 01/04/24 1511 01/04/24 1218 01/04/24 1144 01/04/24 1001 01/04/24 0724 01/04/24 0506 01/03/24 1520 01/03/24 1345 01/03/24 0721 01/03/24 0459 01/02/24 0200 01/01/24 20412/31/23 0937 POTASSIUM mmol/L -- -- -- 4.4 -- -- -- 5.4* -- 5.0 -- 5.1* 4.7 4.3 4.2 CO2 mmol/L -- -- -- -- -- -- -- 23 -- -- -- * 22 22 BUN mg/dL -- -- -- -- -- -- -- 21 -- -- -- 31* 22 22 25 CREATININE mg/dL -- -- -- -- -- -- -- 1.11* -- -- -- 1.32* 0.96 0.97 1.18* BEDSIDE GLUCOSE mg/dL 96 140* 93 -- 86 94 < > -- < > -- < > -- -- -- -- GLUCOSE mg/dL -- -- -- -- -- -- -- 85 -- -- -- 105* 153* 143* 85 < > = values in this interval not displayed. Results from last 7 days Lab Units 01/03/24 0459 01/02/24 0200 01/01/24204412/31/23 0937 INR 1.0 1.1 1.2* 1.1 PROTIME sec 12.2 13.2 13.7* 12.5 APTT sec -- -- -- [address] abdomen and pelvis without contrast Result Date: 01/04/2024 CLINICAL INFORMATION: Sepsis. TECHNIQUE: CT Abdomen and Pelvis without intravenous contrast. All CTscans at this facility use dose modulation, iterative reconstruction, and/or weight based dosing when appropriate to reduce radiation dose to as low as reasonably achievable. COMPARISON: No relevant prior studies available. FINDINGS: CT of the abdomen and pelvis without contrast demonstrate that there are bilateral pleural effusions, greater on the right, that are likely too small to consider thoracentesis. Some patchy airspace disease is present at the left lung base and, to a lesser extent, the right lung base. They are associated with air bronchograms. Coronary artery and arterial calcification is present. Some gas in the subcutaneous tissues of the right lower quadrant may be due to prior injection. 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 The liver, cholecystectomy clips, spleen, pancreas, and adrenal glands are grossly unremarkable. The common bile duct may be enlarged. If clinically indicated, ultrasound may be useful. Dense calcification is present within the iliac vessels. A stent is present within the right superficial femoral artery. There is no free intraperitoneal air, free intraperitoneal fluid, or obvious pelvic abscess.. There are edematous changes within the medial right proximal thigh, which is swollen. Small bubbles of gas are present within the medial swollen muscles. Deep venous thrombosis cannot be assessed. There is no obvious fluid collection. There are bilateral renal cysts, much larger on the left. A small calcification in the rightrenal hilum measures 2 mm and may be within a vessel. IMPRESSION: * There is swelling of the right t high with edema or blood within the subcutaneous tissues medially and also swelling and small bubbles of gas within the medial right proximal thigh musculature. Please correlate for hemorrhage from the recent 01/01/2024 vascular surgery procedure. Doppler ultrasound may be useful to exclude deep venous thrombosis in this swollen lower extremity. * There may be enlargement of the common bile duct status post cholecystectomy. If further evaluation is clinically indicated, liver function test and possible right upper quadrant ultrasound may be useful. * There is no obvious abscess or other inflammatory change in the abdomen or pelvis Finalized by Zachary Sampson MD on 01/04/2024 4:21 PM I/O I/O last 3 completed shifts: In: 2473.9 [P.O.:275; I.V.:2198.9] Out: 2620 [Urine:2620] I/O this shift: In: 120 [P.O.:120] Out: 350 [Urine:350] Vitals Vitals: 01/05/24 1104 BP: 155/51 Pulse: 70 Resp: 18 Temp: 36.8 C (98.3 F) SpO2: 100% Physical Examination Physical Exam HENT: Mouth/Throat: Mouth: Mucous membranes are dry. Pharynx: Oropharynx is clear. Eyes: Pupils: Pupils are equal, round, and reactive to light. Cardiovascular: Pulses: Dorsalis pedis pulses are detected w/ doppler on the right side and detected w/ doppler on the leftside. Posterior tibial pulses are detected w/ doppler on the right side and detected w/ doppler on the left side. Abdominal: General: Bowel sounds are normal. Palpations: Abdomen is soft. Skin: General: Skin is warm and dry. Capillary Refill: Capillary refill takes 2 to 3 seconds. Neurological: General: No focal deficit present. Mental Status: She is alert and oriented to person, place, and time. Vascular: Right Lower Extremity Right lower extremity pulses DP: detected w/ doppler PT: detected w/ doppler Right lower extremity edema: none Left Lower Extremity Left lower extremity pulses DP: detected w/ doppler PT: detected w/ doppler Left lower extremity edema: none Assessment/Plan: Follow up urine cultures Follow up Infectious Disease recommendations Follow up CT scan Xarelto cost analysis sent Continue daily dressing changes Urology following for acute retention issues Beckman catheter in place. Urology will attempt to do a void trial prior to discharge. Continue PT/OT Awaiting dispo for SNF placement Gracy Lim MD General Surgery Resident, PGY-2 Vascular Surgery Cosigned by Lupillo Dempsey MD at 01/06/2024 2:21 PM EST Associated attestation - Lupillo Dempsey MD - 01/06/2024 2:21 PM EST Attending Attestation: I saw the patient. I performed or was present for the critical/alvarado portions of the service. I was directly involved in the management and treatment plan of the patient. I reviewed the resident's note. Additional Notes/Findings: This patient was seen on rounds the vascular surgery team. She has a Beckman catheter in place draining clear urine. Discharge planning is underway. Antibiotics for urinary tract infection have been initiated by Infectious Disease. She has a history of C difficile with previous antibiotic treatment, t jason will follow along for that. Her right lower extremity is gradually healing with slight improvement in its appearance each day. Her pain is much better than it was a few days ago. * Hilda Smith MD - 01/05/2024 10:30 AM EST Images from the original note were not included. Delicia Hsu [id number] CONSULTING SERVICE: INFECTIOUS DISEASES REASON FOR CONSULTATION: Suspected urinary tract infection C diff IMPRESSION/ RECOMMENDATIONS: Received steroids 01/01/2024 Fever Leukocytosis, multifactorial Blood cultures remain negative to date Follow serial WBC counts Follow serial temperatures Acute urinary retention Urinary tract infection Urine culture Ampicillin nitrofurantoin and quinolone resistant Klebsiella pneumoniae 01/03/2024 Start cefepime Urology following Left lower extremity wound Peripheral vascular disease Status post angiography right lower extremity/ Angioplasty and iliac stent placement Bovine patch angioplasty cut down femoral and Iliofemoral right lower extremity / Femoral artery to popliteal artery below-knee bypass with vein patch/ hi GSV ligation and harvest right lower extremity/ Endarterectomy femoral and ileal femoral 01/01/2024 Wound care to follow Reported enlargement of common bile duct status post cholecystectomy Patient asymptomatic Reported right thigh swelling and edema or blood in the subcutaneous tissues medially with swellingand small bubbles of gas likely postoperative in nature Will defer management of rest of the issues mentioned on CT to vascular surgery Patient can follow-up with her Infectious Disease doctor after discharge Will check stool for C diff if diarrhea starts 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, History of Microscopic colitis Chronic kidney disease stage III Cardiac dysrhythmias Coronary artery disease Hypertension Dyslipidemia Peripheral vascular disease Venous insufficiency lower extremities Obstructive sleep apnea Peptic ulcer disease History of GI bleed Fracture left hip 2017 Gastroesophageal reflux disease Sensorineural hearing loss History of skin cancer removal History of angioplasty iliac iliac shockwave intravascular lithotripsy right- sided 11/18/2023 History of left hip fracture surgery 05/2017 History of left total hip arthroplasty 2019 Continue supportive care Defer the rest of the issues to PMD and other consultants Thank you very much for allowing me to participate in this patient care WORKUP REVIEWED: Blood cultures remain negative to date All pertinent labs reviewed by me as described below Imaging Studies: CT abdomen and pelvis without contrast Result Date: 01/04/2024 CLINICAL INFORMATION: Sepsis. TECHNIQUE: CT Abdomen and Pelvis without intravenous contrast. All CTscans at this facility use dose modulation, iterative reconstruction, and/or weight based dosing when appropriate to reduce radiation dose to as low as reasonably achievable. COMPARISON: No relevant prior studies available. FINDINGS: CT of the abdomen and pelvis without contrast demonstrate that there are bilateral pleural effusions, greater on the right, that are likely too small to consider thoracentesis. Some patchy airspace disease is present at the left lung base and, to a lesser extent, the right lung base. They are associated with air bronchograms. Coronary artery and arterial calcification is present. Some gas in the subcutaneous tissues of the right lower quadrant may be due to prior injection. 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 The liver, cholecystectomy clips, spleen, pancreas, and adrenal glands are grossly unremarkable. The common bile duct may be enlarged. If clinically indicated, ultrasound may be useful. Dense calcification is present within the iliac vessels. A stent is present within the right superficial femoral artery. There is no free intraperitoneal air, free intraperitoneal fluid, or obvious pelvic abscess.. There are edematous changes within the medial right proximal thigh, which is swollen. Small bubbles of gas are present within the medial swollen muscles. Deep venous thrombosis cannot be assessed. There is no obvious fluid collection. There are bilateral renal cysts, much larger on the left. A small calcification in the rightrenal hilum measures 2 mm and may be within a vessel. IMPRESSION: * There is swelling of the right t high with edema or blood within the subcutaneous tissues medially and also swelling and small bubbles of gas within the medial right proximal thigh musculature. Please correlate for hemorrhage from the recent 01/01/2024 vascular surgery procedure. Doppler ultrasound may be useful to exclude deep venous thrombosis in this swollen lower extremity. * There may be enlargement of the common bile duct status post cholecystectomy. If further evaluation is clinically indicated, liver function test and possible right upper quadrant ultrasound may be useful. * There is no obvious abscess or other inflammatory change in the abdomen or pelvis Finalized by Zachary Sampson MD on 01/04/2024 4:21 PM Fluoroscopy track vascular operative Result Date: 01/01/2024 Narrative: Please refer to the vascular OP note for a dictation on this exam. Results from last 7 days Lab Units 01/04/24 0506 01/03/24 0459 01/02/24 0200 WBC X10E9/L 15.7* 14.3* 11.9* HEMOGLOBIN g/dL 8.8* 9.2* 8.8* HEMATOCRIT % 25.8* 27.1* 25.6* PLATELETS X10E9/L 224 303 285 Results from last 7 days Lab Units 01/04/24 1218 01/04/24 0506 01/03/24 1345 01/03/24 0459 01/02/24 0200 POTASSIUM mmol/L 4.4 5.4* 5.0 5.1* 4.7 CHLORIDE mmol/L -- 103 -- 104 106 CO2 mmol/L -- 23 -- 23 21* BUN mg/dL -- 21 -- 31* 22 CREATININE mg/dL -- 1.11* -- 1.32* 0.96 EGFR (CKD-EPI)NON-RACE DEPENDENT ml/min/1.73sq.m -- 48* -- 39* 57* CALCIUM mg/dL -- 8.6 -- 9.0 8.4* MAGNESIUM mg/dL -- -- -- -- 1.3* Cultures: Microbiology Results Procedure Component Value Units Date/Time Blood Culture [[id number]] Collected: 11/26/24 1218 Specimen: Blood Updated: 01/05/24 0108 Culture NO GROWTH <24 HRS Blood Culture [[id number]] Collected: 01/04/24 1217 Specimen: Blood Updated: 01/05/24 0108 Culture NO GROWTH <24 HRS Urine culture [[id number]] (Abnormal) (Susceptibility) Collected: 01/03/24 1405 Specimen: Urine Updated: 01/05/24 0955 Culture >100,000 ORGANISMS/mL KLEBSIELLA PNEUMONIAE Susceptibility Klebsiella Pneumoniae JODY METHOD AMP/SULBACTAM 4/2 Susceptible Ampicillin >=32 Resistant Cefazolin <=4 Susceptible Ceftriaxone <=0.25 Susceptible Ciprofloxacin 1 Resistant Gentamicin <=1 Susceptible Levofloxacin 1 Intermediate Nitrofurantoin 128 Resistant PIPERACIL/TAZOBACTAM <=4 Susceptible Tobramycin <=1 Susceptible TRIMETH/SULFAMETHOXAZOLE <=1/19 Susceptible PROBLEMS MANAGED BY OTHERS: Microscopic colitis Chronic kidney disease Stage III Cardiac dysrhythmias Coronary artery disease Hypertension Dyslipidemia Peripheral vascular disease Obstructive sleep apnea Peptic ulcer disease History of GI bleed Fracture left hip 2017 Gastroesophageal reflux disease Sensorineural hearing loss History of skin cancer removal Recurrent C diff in December and January, History of left hip fracture surgery 05/2017 History of left total hip arthroplasty 2019 Angiography right lower extremity 01/01/2024 Angioplasty and iliac stent placement 01/01/2024 Bovine patch angioplasty cut down femoral and Iliofemoral right lower extremity 01/01/2024 Femoral artery to popliteal artery below-knee bypass with vein patch/ hi GSV ligation and harvest right lower extremity 01/01/2024 Endarterectomy femoral and ileal femoral 01/01/2024 History of angioplasty iliac iliac shockwave intravascular lithotripsy right- sided 11/18/2023 Arthroscopy with open rotator cuff repair left sided 2011 History of cataract extraction History of cholecystectomy 2009 History of coronary artery bypass grafting x5 in 1998 History of eye surgery History of hernia repair 03/2012 History of sclerotherapy right lower extremity 12/24/2023 Mid urethral sling placement in the past Reported penicillin allergy causing severe rash Reported Levaquin allergy causing sleeplessness and restless legs Your other diagnosis CHIEF COMPLAINT: Elective admission for right lower extremity revascularization for critical limb ischemia with restpain and tissue loss HISTORY OF PRESENT ILLNESS: 88 y.o. Female admitted to the hospital with above-mentioned reported chief complaints as of 01/01/2024. Past medical history significant for recurrent C diff coronary artery disease cardiac dysrhythmia hypertension dyslipidemia peripheral vascular disease peptic ulcer disease obstructive sleep apnea gastroesophageal reflux disease GI bleed among others. Patient was hospitalized, she underwent Angiography right lower extremity/ Angioplasty and iliac stent placement Bovine patch angioplasty cut down femoral and Iliofemoral right lower extremity / Femoral artery to popliteal artery below-knee bypass with vein patch/ hi GSV ligation and harvest right lower extremity/ Endarterectomy femoral and ileal femoral as of 01/01/2024, patient also has historyof of angioplasty iliac iliac shockwave intravascular lithotripsy right-sided 11/18/2023. She spiked a temperature of 101.3 F as of 01/03/2024. Her white count on the was 7.5, on the patient received a dose of dexamethasone and underwent the above-mentioned procedure. The white count went to 13.3 and then 11.9, 14.3 in 15.7. She received a dose of clindamycin as of 01/01/2024. Patient also developed urinary retention, her urinalysis revealed 30 WBCs 1 squamous epithelial cells positive nitrite and moderate leukocyte esterase, as a result urine cultures were ordered and Urology was consulted. She was described to have C diff in the past, she was also reported to have urinary tract infectionin the past she follows and Infectious Disease doctor at [facility] in [facility]. SUBJECTIVE: Patient reports improvement in symptoms. No nausea vomiting. No new events reported by nursing staff. PHYSICAL EXAMINATION: Seen With NS. GENERAL: Well built, well developed. No distress. Nontoxic. EYES: [place] conjunctivae. HEENT: No thrush. Neck supple. No JVD. CHEST: No use of accessory muscles of respiration. Lungs clear to auscultation without any added sounds air exchange good. Cardiovascular exam: Normal S1-S2. No gallops, rubs, or murmurs. ABDOMEN: Soft, nontender, nondistended. Bowel sounds positive. RENAL: No suprapubic tenderness. Extremities: No clubbing, cyanosis. Positive edema. No peripheral stigmata of infective endocarditis at present. SKIN: IV site looks fine. No rash. Neurological: Alert and responsive. Musculoskeletal: No large joint effusions of the extremities. Right lower extremity and foot in dressing. I have personally reviewed the past medical history, past surgical history, medications, social history, and family history, and I have updated the database accordingly. PAST MEDICAL HISTORY: Past Medical History: Diagnosis Date Anesthesia complication 2018 HAD HALLUCINATIONS FOR A FEW DAYS AFTER HIP SURGERY Arrhythmia Arthritis C. difficile diarrhea 12/2022 HOSPITALIZED, 01/2023 Cataract Cholecystitis Chronic kidney disease Colitis Coronary artery disease Critical limb ischemia of right lower extremity ([facility]) Dental disease UPPER AND LOWER DENTURE DIAZ (dyspnea on exertion) Fractures 2018 LEFT HIP GERD (gastroesophageal reflux disease) HL (hearing loss) Hyperlipidemia Hypertension Microscopic colitis PAD (peripheral artery disease) ([facility]) Peptic ulceration BLEEDING ULCER ADMITTED 2018 X13 DAYS TATYANA Rash Skin cancer REMOVED Sleep apnea No CPAP Thin skin Urinary tract infection CHRONIC, SEES ID EVERY 3 MONTHS Visual impairment Wound of ankle RIGHT SINCE 07/2023 PAST SURGICAL HISTORY: Past Surgical History: Procedure Laterality Date ABDOMINAL SURGERY ANGIOGRAM EXTREMITY LOWER Right 01/01/2024 Performed by Deuce Kirkland MD at [facility] SPECIAL PROC ANGIOPLASTY ILIAC STENT PLACEMENT Right 01/01/2024 Performed by Deuce Kirkland MD at [facility] PROC ANGIOPLASTY ILIAC-ILIAC SHOCKWAVE INTRAVASCULAR LITHOTRIPSY Right 11/18/2023 Performed by Deuce Kirkland MD at [facility] PROC ARTHROSCOPY SHOULDER W/ OPEN ROTATOR CUFF REPAIR Left 2011 BOVINE PATCH ANGIOPLASTY CUTDOWN FEMORAL Right 01/01/2024 Performed by Deuce Kirkland MD at [facility] SPECIAL PROC BOVINE PATCH ANGIOPLASTY ILEOFEMORAL Right 01/01/2024 Performed by Deuce Kirkland MD at [facility] SPECIAL PROC BYPASS ARTERY FEMORAL BELOW KNEE POPLITEAL W/ VEIN PATCH/ HIGH GSV LIGATION AND HARVEST Right 01/01/2024 Performed by Deuce Kirkland MD at [facility] SPECIAL PROC CARDIAC SURGERY CATARACT EXTRACTION CHOLECYSTECTOMY N/A 2008 CORONARY ARTERY BYPASS GRAFT 1998 x 5 ENDARTERECTOMY FEMORAL AND ILIOFEMORAL ENDARTERECTOMY Right 01/01/2024 Performed by Deuce Kirkland MD at [facility] SPECIAL PROC EYE SURGERY HERNIA REPAIR N/A 03/2012 HIP FRACTURE SURGERY Left 05/2017 HYSTERECTOMY N/A JOINT REPLACEMENT lower ext angiogram Bilateral 01/07/2022 Performed by Taryn Belle MD at [facility] CARDIAC CATH LABS SCLEROTHERAPY LOWER EXTREMITY Right 12/24/2023 Performed by Deuce Kirkland MD at [facility] TOTAL HIP ARTHROPLASTY Left 2019 VASCULAR SURGERY Angiogram ALLERGIES: Allergies Allergen Reactions Nsaids (Non-Steroidal Anti-Inflammatory Drug) Other (See Comments) ELEVATED KIDNEY LABS Penicillins Rash Levofloxacin Other (See Comments) Sleeplessness restless legs Antihistamine 12 Hour Other (See Comments) restlessness Diphenhydramine Hcl Other (See Comments) restlessness Ezetimibe Other (See Comments) unknown Gemfibrozil Other (See Comments) unknown Histamine H2 Inhibitors Other (See Comments) restlessness Phenergan [Promethazine] Anxiety JITTERY Propoxyphene N-Acetaminophen Other (See Comments) JITTERY NOT ALLERGIC TO TYLENOL SOCIAL HISTORY: Social History Socioeconomic History Marital status: Tobacco Use Smoking status: Former Current packs/day: 0.00 Types: Cigarettes Quit date: 12/30/1993 Years since quittin.0 Smokeless tobacco: Never Tobacco comments: QUIT IN 1989 Vaping Use Vaping status: Never Used Substance and Sexual Activity Alcohol use: Yes Alcohol/week: 1.0 standard drink of alcohol Types: 1 Glasses of wine per week Comment: monthly Drug use: Never Sexual activity: Defer Social Drivers of Health Financial Resource Strain: Low Risk (11/18/2023) Overall Financial Resource Strain (CARDIA) Difficulty of Paying Living Expenses: Not hard at all Food Insecurity: No Food Insecurity (01/02/2024) Hunger Screening Food Insecurity - Worry: Never True Food Insecurity - Inability: Never True Transportation Needs: No Transportation Needs (01/02/2024) PRAPARE - Transportation Lack of Transportation (Medical): No Lack of Transportation (Non-Medical): No Interpersonal Safety: Not At Risk (01/02/2024) Humiliation, Afraid, Rape, and Kick questionnaire Fear of Current or Ex-Partner: No Emotionally Abused: No Physically Abused: No Sexually Abused: No Housing Instability: Low Risk (01/02/2024) Housing Instability Housing Instability: No FAMILY HISTORY: Family History Problem Relation Age of Onset Cerebral aneurysm Mother Heart failure Father Cancer Sister Cancer Brother Anesthesia problems Neg Hx Note was updated later by me after physical examination and completion of the assessment. Pertinent labs vital signs imaging studies medications all noted. This note was created with the assistance of a speech-recognition program. Although the intention is to generate a document that actually reflects the content of the visit, no guarantees can be provided that every mistake has been identified and corrected by editing. Signed by, Hilda Smith MD. 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 difficile colitis Chronic ulcer of lower extremity ([facility]) Non-pressure chronic ulcer of right lower leg, limited to breakdown of skin ([facility]) Chronic ulcer of right heel ([facility]) Closed fracture of neck of femur ([facility]) Complete tear of right rotator cuff Diarrhea Essential hypertension Gastroesophageal reflux disease Hip bursitis, left Hypercalcemia Hyperlipidemia Immunocompromised state ([facility]) Ingrown nail 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 ([facility]) 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 Other abnormalities of gait and mobility Recurrent Clostridioides difficile diarrhea Recurrent UTI Urge incontinence Venous insufficiency (chronic) (peripheral) 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 ([facility]) Peripheral vascular disease ([facility]) 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 ([facility]) Venous ulcer of right leg ([facility]) Critical limb ischemia of both lower extremities with rest pain ([facility]) Venous ulcer of ankle, right ([facility]) Encounter for therapeutic drug monitoring Past Medical History: Past Medical History: Diagnosis Date Anesthesia complication 2018 HAD HALLUCINATIONS FOR A FEW DAYS AFTER HIP SURGERY Arrhythmia Arthritis C. difficile diarrhea 12/2022 HOSPITALIZED, 01/2023 Cataract Cholecystitis Chronic kidney disease Colitis Coronary artery disease Critical limb ischemia of right lower extremity ([facility]) Dental disease UPPER AND LOWER DENTURE DIAZ (dyspnea on exertion) Fractures 2018 LEFT HIP GERD (gastroesophageal reflux disease) HL (hearing loss) Hyperlipidemia Hypertension Microscopic colitis PAD (peripheral artery disease) ([facility]) Peptic ulceration BLEEDING ULCER ADMITTED 2018 X13 DAYS TATYANA Rash Skin cancer REMOVED Sleep apnea No CPAP Thin skin Urinary tract infection CHRONIC, SEES ID EVERY 3 MONTHS Visual impairment Wound of ankle RIGHT SINCE 07/2023 Past Surgical History: Past Surgical History: Procedure Laterality Date ABDOMINAL SURGERY ANGIOGRAM EXTREMITY LOWER Right 01/01/2024 Performed by Deuce iKrkland MD at [facility] PROC ANGIOPLASTY ILIAC STENT PLACEMENT Right 01/01/2024 Performed by Deuce Kirkland MD at [facility] PROC ANGIOPLASTY ILIAC-ILIAC SHOCKWAVE INTRAVASCULAR LITHOTRIPSY Right 11/18/2023 Performed by Deuce Kirkland MD at [facility] PROC ARTHROSCOPY SHOULDER W/ OPEN ROTATOR CUFF REPAIR Left 2011 BOVINE PATCH ANGIOPLASTY CUTDOWN FEMORAL Right 01/01/2024 Performed by Deuce Kirkland MD at [facility] SPECIAL PROC BOVINE PATCH ANGIOPLASTY ILEOFEMORAL Right 01/01/2024 Performed by Deuce Kirkland MD at [facility] PROC BYPASS ARTERY FEMORAL BELOW KNEE POPLITEAL W/ VEIN PATCH/ HIGH GSV LIGATION AND HARVEST Right 01/01/2024 Performed by Deuce Kirkland MD at [facility] PROC CARDIAC SURGERY CATARACT EXTRACTION CHOLECYSTECTOMY N/A 2008 CORONARY ARTERY BYPASS GRAFT 1999 x 5 ENDARTERECTOMY FEMORAL AND ILIOFEMORAL ENDARTERECTOMY Right 01/01/2024 Performed by Deuce Kirkland MD at [facility] PROC EYE SURGERY HERNIA REPAIR N/A 03/2012 HIP FRACTURE SURGERY Left 05/2017 HYSTERECTOMY N/A JOINT REPLACEMENT lower ext angiogram Bilateral 01/07/2022 Performed by Taryn Belle MD at [facility] CARDIAC CATH LABS SCLEROTHERAPY LOWER EXTREMITY Right 12/24/2023 Performed by Deuce Kirkland MD at [facility] ARTHROPLASTY Left 2019 VASCULAR SURGERY Angiogram Social/ Cognitive/ Economic: Alert and oriented Brief Clinical Summary: Patient presented for planned surgery, Endarterectomy Femoral, for Right Lower Extremity Ischemia. PMHx: includes a non healing ulcer on medial portion of Right lower leg, PVD, Microscopic Colitis, CKD Stage III, CAD, HTN, HLD, GERD and C diff. Biochemical Data, Medical Tests, and Procedures: 12/31 R iliofemoral endarterectomy + patch angioplasty + iliac stent + fem-pop bypass Labs: Results from last 3 days Lab Units 01/04/24 1218 01/04/24 0506 01/03/24 1345 01/03/24 0459 SODIUM mmol/L -- 133* -- 137 POTASSIUM mmol/L 4.4 5.4* 5.0 5.1* CHLORIDE mmol/L -- 103 -- 104 CO2 mmol/L -- 23 -- 23 BUN mg/dL -- 21 -- 31* CREATININE mg/dL -- 1.11* -- 1.32* CALCIUM mg/dL -- 8.6 -- 9.0 Results from last 7 days Lab Units 01/05/24 0730 01/04/24 2103 01/04/24 1511 01/04/24 1144 01/04/24 1001 01/04/24 0724 01/04/24 0506 BEDSIDE GLUCOSE mg/dL 96 140* 93 86 94 96 -- GLUCOSE mg/dL -- -- -- -- -- -- 85 Results from last 3 days Lab Units 01/04/24 0506 01/03/24 0459 WBC X10E9/L 15.7* 14.3* HEMOGLOBIN g/dL 8.8* 9.2* HEMATOCRIT % 25.8* 27.1* PLATELETS X10E9/L 224 303 MCV fL 96 97 Results from last 3 days Lab Units 01/02/24 1000 IONIZED MAGNESIUM mmol/L 0.80* No data from last 3 days. No data from last 3 days. No results found for: HGBA1C No results found for: IRON , TIBC , FERRITIN No results found for: IRONSAT No results found for: CHOL No results found for: CHDL No results found for: HDL No results found for: LDLCALC No results found for: TRIG No results found for: VERYLOWLIP No results found for: [id number] No results found for: FOLATE No results found for: VITD25 Comments (labs): decreased eGFR Medications/ Parenteral: Antibiotics, Colace Medications Prior to Admission Medication Sig Dispense Refill Last Dose/Taking acetaminophen (TYLENOL EXTRA STRENGTH) 500 mg tablet Take 2 tablets (1,000 mg total) by mouth every6 (six) hours as needed for pain. 30 tablet 0 12/31/2023 acidophilus-pectin, citrus 25 million cell -100 mg tablet Take 1 tablet by mouth daily with breakfast. 12/31/2023 ascorbic acid, vitamin C, (VITAMIN C) 250 mg tablet Take 1 tablet (250 mg total) by mouth in the morning and 1 tablet (250 mg total) before bedtime. 12/31/2023 bismuth subsalicylate (PEPTO-BISMOL ORAL) daily as needed. TAKES 3 TABS MORNING AND 3 TABS NIGHTLY Past Week budesonide EC (ENTOCORT EC) 3 mg 24 hr capsule Take 1 capsule (3 mg total) by mouth in the morning.12/31/2023 cholecalciferol, vitamin D3, (D3-50 CHOLECALCIFEROL ORAL) Take 1 tablet by mouth in the morning. 12/31/2023 clopidogreL (PLAVIX) 75 mg tablet Take 1 tablet (75 mg total) by mouth in the morning. Indications:treatment to prevent a heart attack. 12/31/2023 estradioL (ESTRACE) 0.01 % (0.1 mg/gram) vaginal cream as needed. 12/31/2023 loperamide (IMODIUM A-D) 2 mg tablet Take 2 tablets (4 mg total) by mouth as needed. Past Week melatonin 10 mg tablet Take 1 tablet by mouth nightly. 12/31/2023 naloxone (NARCAN) 4 mg/actuation spray,non-aerosol nasal spray Administer 1 spray (4 mg total) intoalternating nostrils as needed for opioid reversal for up to 2 doses. 2 each 0 Other - as prescribed nebivoloL (BYSTOLIC) 5 mg tablet Take 2 tablets (10 mg total) by mouth in the morning. Indications:high blood pressure. 12/31/2023 pantoprazole (PROTONIX) 40 mg EC tablet Take 20 mg by mouth in the morning. Indications: gastroesophageal reflux disease. 01/01/2024 simvastatin (ZOCOR) 40 mg tablet Take 1 tablet (40 mg total) by mouth in the morning. Indications: excessive fat in the blood. 01/01/2024 spironolactone (ALDACTONE) 25 mg tablet Take 2 tablets (50 mg total) by mouth in the morning. Indications: high blood pressure. 12/31/2023 zinc 50 mg tablet tablet Take 1 tablet (50 mg total) by mouth in the morning. 12/31/2023 aspirin 81 mg Take 1 tablet (81 mg total) by mouth in the morning. vancomycin (VANCOCIN) 125 mg capsule Take 1 capsule (125 mg total) by mouth in the morning. PREVENTUTI. (Patient not taking: Reported on 12/24/2023) Current Facility-Administered Medications Medication Dose Route Frequency Provider Last Rate Last Admin acetaminophen (TYLENOL EXTRA STRENGTH) tablet 1,000 mg 1,000 mg oral Q6H PRN Konstantin Stout MD 1,000 mg at 01/05/24 0838 acetic acid 0.25 % irrigation solution 20 mL 20 mL irrigation BID XAVIER Brown 20 mLat 01/04/24 1802 albuterol sulfate (PROVENTIL) nebulizer solution 10 mg 10 mg nebulization Once XAVIER Brown And sodium chloride 0.9 % (PF) injection 4 mL 4 mL nebulization Once XAVIER Brown calcium gluconate IVPB 1000 mg/50 mL (20 mg/mL premix) 1,000 mg intravenous PRN Konstantin Stout MD Or calcium gluconate IVPB 2000 mg/100 mL (20 mg/mL premix) 2,000 mg intravenous PRN Konstantin Stout MD Or calcium gluconate IVPB 1000 mg/50 mL (20 mg/mL premix) 3,000 mg intravenous PRN Konstantin Stout MD cefEPime (MAXIPIME) 1,000 mg in sodium chloride 0.9 % 50 mL IVPB-MBP 1,000 mg intravenous Q12H Brett Smith MD Stopped at 01/05/24 0520 clopidogreL (PLAVIX) tablet 75 mg 75 mg oral Daily Konstantin Stout MD 75 mg at 01/05/24 0838 dextrose (GLUTOSE) 40 % gel 15 g 15 g oral PRN Konstantin Stout MD dextrose 50 % in water (D50W) 50% solution 25 g 25 g intravenous Once PRN XAVIER Brown dextrose 50 % in water (D50W) 50% solution 25 mL 25 mL intravenous PRN Konstantin Stout MD docusate sodium (COLACE) capsule 100 mg 100 mg oral Daily XAVIER Brown 100 mg at 01/05/24 0857 gabapentin (NEURONTIN) capsule 100 mg 100 mg oral TID Devorah La MD 100 mg at 01/05/24 0616 glucagon HCL injection 1 mg 1 mg intramuscular PRN Konstantin Stout MD hydrALAZINE (APRESOLINE) injection 20 mg 20 mg intravenous Q6H PRN Konstantin Stout MD 20 mg at 01/02/24 0342 HYDROmorphone (DILAUDID) injection 0.5 mg 0.5 mg intravenous Q2H PRN Morris Cheung MD 0.5 mg at 01/04/24 0559 labetaloL (NORMODYNE,TRANDATE) injection 20 mg 20 mg intravenous Q6H PRN Konstantin Stout MD 20 mg at 01/02/24 0153 magnesium sulfate IVPB 2000 mg/50 mL in iso-osmotic water (40 mg/mL premix) 2,000 mg intravenous PRN Konstantin Stout MD Or magnesium sulfate IVPB 4000 mg/100 mL in iso-osmotic water (40 mg/mL premix) 4,000 mg intravenous PRN Konstantin Stout MD Stopped at 01/02/24 0534 oxyCODONE (ROXICODONE) immediate release tablet 5 mg 5 mg oral Q4H PRN Devorah La MD 5 mg at 01/05/24 0620 Or oxyCODONE (ROXICODONE) immediate release tablet 10 mg 10 mg oral Q4H PRN Devorah La MD 10 mg at103/04/23 2233 polyethylene glycol (GLYCOLAX) packet 17 g 17 g oral Daily PRN XAVIER Brown potassium chloride (K-TAB,KLOR-CON) CR tablet 20-50 mEq 20-50 mEq oral PRN Konstantin Stout MD Or potassium chloride (KAYCIEL) 20 mEq/15 mL solution 20-50 mEq 20-50 mEq oral PRN Konstantin Stout MD potassium chloride IVPB 10 mEq/50 mL in water (0.2 mEq/mL premix) 10 mEq intravenous PRN Cha Stout MD Or potassium chloride IVPB 10 mEq/100 mL in water (0.1 mEq/mL premix) 10 mEq intravenous PRN Konstantin Stout MD rivaroxaban (XARELTO) tablet 2.5 mg 2.5 mg oral BID with meals XAVIER Brown 2.5 mg at 01/05/24 0838 sodium phosphate 20 mmol in sodium chloride 0.9 % 250 mL IVPB 20 mmol intravenous PRN Konstantin Stout MD Or sodium phosphate 20 mmol in sodium chloride 0.9 % 100 mL IVPB 20 mmol intravenous PRN Konstantin Stout MD Or sod phos di, mono-K phos mono (K-PHOS NEUTRAL) 250 mg tablet 2 tablet 2 tablet oral PRN Konstantin Stout MD Nutrition Focused Physical Findings +wounds (see below), UO:1850, Last BM: 12/29 Extremities, Muscles, and Bones A. Muscle Loss- appears WNL B. Loss of Subcutaneous Fat- appears WNL Skin (per nursing flow sheets): Skin Color: [place] (01/04/241999) Skin Temp: Warm (01/04/241999) Wound (per nursing flow sheets): Wound 11/18/23 Skin Tear Pretibial Right-State of Healing: Healing ridge (01/02/24 0914) Wound 01/01/24 Incision Leg Dorsal-Site Assessment: Unable to assess (wound drssing in place.) (01/04/241999) Wound 11/18/23 Skin Tear Pretibial Right-Site Assessment: Unable to assess (01/04/241999) Wound 12/24/23 Incision Leg Right-Site Assessment: Unable to assess (wound drssing in place.) (01/04/241999) Wound 11/18/23 Incision Groin Right-Site Assessment: Painful; [place]; Fragile (01/04/241999) Wound 01/02/24 Incision Pretibial Proximal;Right-Site Assessment: Unable to assess (wound drssing in place.) (01/04/241999) Gastrointestinal (per nursing flow sheets): Abdomen Assessment: Soft (01/04/241999) Last BM Date: 12/30/23 (01/04/241999) Passing Flatus: Yes (01/04/241999) RUQ Bowel Sounds: Hyperactive (01/04/241999) LUQ Bowel Sounds: Hyperactive (01/04/241999) RLQ Bowel Sounds: Hyperactive (01/04/241999) LLQ Bowel Sounds: Hyperactive (01/04/241999) GI Symptoms: None (01/04/241999) Edema (per nursing flow sheets): RUE Edema: +1 (01/04/24 8840) LUE Edema: +1 (01/04/24 0740) RLE Edema: Unable to assess (01/04/241999) LLE Edema: +1 (01/04/241999) Intake/ Output Last 24 hrs: Intake/Output Summary (Last 24 hours) at 01/05/2024 0921 Last data filed at 01/05/2024 0559 Gross per 24 hour Intake 275 ml Output 1850 ml Net -1575 ml Food/Nutrition Related History: Diet History: Regular, 4-5 meals per day. Choosing balanced meals. No strong food preferences. [employer]. Allergies: Allergies Allergen Reactions Nsaids (Non-Steroidal Anti-Inflammatory Drug) Other (See Comments) [facility] Penicillins Rash Levofloxacin Other (See Comments) Sleeplessness restless legs Antihistamine 12 Hour Other (See Comments) restlessness Diphenhydramine Hcl Other (See Comments) restlessness Ezetimibe Other (See Comments) unknown Gemfibrozil Other (See Comments) unknown Histamine H2 Inhibitors Other (See Comments) restlessness Phenergan [Promethazine] Anxiety JITTERY Propoxyphene N-Acetaminophen Other (See Comments) JITTERY NOT ALLERGIC TO TYLENOL Diet/ Nutrition Order Review: Dietary Orders (From admission, onward) Start Ordered 01/02/24 1146 Adult diet Regular Texture Diet effective now Question: Diet Type: Answer: Regular Texture 01/02/24 1145 Diet Intakes: Percent Meals Eaten (%): 50 (01/04/24 0740) 25-75% intakes per nursing flowsheet (01/01-). Patient and family note decreased appetite after surgery though intakes are improving now. Oral Supplemental Intake/ Acceptance: None ordered Anthropometrics: Ht Readings from Last 1 Encounters: 01/01/24 177.8 cm (5' 10 ) Wt Readings from Last 20 Encounters: 01/05/24 70.8 kg (156 lb 1.4 oz) 12/31/23 65.4 kg (144 lb 2.9 oz) 12/30/23 64 kg (141 lb) 12/24/23 62.1 kg (137 lb) 12/23/23 61.2 kg (135 lb) 12/09/23 62.1 kg (137 lb) 11/19/23 64.6 kg (142 lb 6.7 oz) 11/16/23 61.2 kg (135 lb) 10/27/23 61.7 kg (136 lb) 10/14/23 61.7 kg (136 lb) 06/17/23 62.1 kg (136 lb 12.8 oz) 04/16/22 60.8 kg (134 lb) 01/15/22 63.5 kg (140 lb) 01/07/22 72.6 kg (160 lb) 12/24/21 68.6 kg (151 lb 3.2 oz) 11/21/21 67.6 kg (149 lb) Last 3 Weight Readings 01/03/24 0400 01/03/24 0408 01/05/24 0338 Weight: 69 kg (152 lb 1.9 oz) 70.4 kg (155 lb 3.3 oz) 70.8 kg (156 lb 1.4 oz) Admit Weight: 67 kg (Bed Scale, 12/31) Usual Body Weight: 63 kg [place] Body Weight: 68.2 kg Percent [place] Body Weight: 98% Weight Changes: Stable per patient Body Mass Index: Body mass index is 22.4 kg/m . BMI Category: Normal range (18.50- 24.99) Comparative Standards: Estimated Energy Needs: 9770-5107 kcals daily. Method and weight used: 25-30 kcal/kg IBW Estimated Protein Needs: 82-136 grams daily. Method and weight used: 1.2-2 g protein/kg IBW Estimated Fluid Needs: 0096-0332 ml daily. Method weight used: 25-30 ml/kg IBW Comments: increased needs due to non-healing wounds. Malnutrition Status: Malnutrition Present: No NUTRITION DIAGNOSIS: Intake Diagnosis: Increased nutrient needs Protein/Kcal (NI 5.1) related to increased nutrient demand for healing as evidenced by delayed wound healing. NUTRITION INTERVENTIONS: Meals & snacks: Diet per Team, Encourage intake, nutrient dense, balanced meals. Supplements (medical food, vitamin or mineral): Will send Ky 2x/day. This will aide in wound healing. Recommend that it is used 2x/day for minimum 2-4 weeks. Provides 90 kcal, 2.5 grams of proteinand 7g arginine/glutamine per serving. Coordination of nutrition care: Discussed with RNMonie. GOAL(S): Meet estimated calorie and protein needs. NUTRITION MONITORING AND EVALUATION: PO intakes, supplement acceptance, weight trend, labs, POC andoverall status. Jeanette Ag RD, LD Clinical Dietitian Direct Line: * Aroldo Purvisubowski, GRANTS AND CONTRACTS ASSISTANT-MANAGER COSMETICS - 01/04/2024 1:22 PM EST Images from the original note were not included. Interval History: Delicia Mckee Is an 88 y.o. female with peripheral vascular disease and venous insufficiency s/p admitted 01/01/2024 s/p right iliofemoral endarterectomy + patch angioplasty + iliac stent + fem-pop bypass 12/31. Objective: Current Medications acetic acid, 20 mL, irrigation, BID albuterol sulfate, 10 mg, nebulization, Once AND sodium chloride 0.9 % (PF), 4 mL, nebulization, Once cefepime (MAXIPIME) IV, 1,000 mg, intravenous, Once FOLLOWED BY cefepime (MAXIPIME) IV, 1,000 mg, intravenous, Q12H clopidogreL, 75 mg, oral, Daily gabapentin, 100 mg, oral, TID rivaroxaban, 2.5 mg, oral, BID with meals Allergies Allergies Allergen Reactions Nsaids (Non-Steroidal Anti-Inflammatory Drug) Other (See Comments) [facility] Penicillins Rash Levofloxacin Other (See Comments) Sleeplessness restless legs Antihistamine 12 Hour Other (See Comments) restlessness Diphenhydramine Hcl Other (See Comments) restlessness Ezetimibe Other (See Comments) unknown Gemfibrozil Other (See Comments) unknown Histamine H2 Inhibitors Other (See Comments) restlessness Phenergan [Promethazine] Anxiety JITTERY Propoxyphene N-Acetaminophen Other (See Comments) JITTERY NOT ALLERGIC TO TYLENOL Labs Results from last 7 days Lab Units 01/04/24 0506 01/03/24 0459 01/02/24 0200 01/01/24 2045 12/31/23 0937 WBC X10E9/L 15.7* 14.3* 11.9* 13.3* 7.5 HEMOGLOBIN g/dL 8.8* 9.2* 8.8* 8.9* 10.3* HEMATOCRIT % 25.8* 27.1* 25.6* 25.8* 29.8* PLATELETS X10E9/L 224 303 285 270 387 Results from last 7 days Lab Units 01/04/24 1144 01/04/24 1001 01/04/24 0724 01/04/24 0506 01/03/24 2152 01/03/24 1520 01/03/24 1345 01/03/24 0721 01/03/24 0459 01/02/24 0200 01/01/24204412/31/23 0937 POTASSIUM mmol/L -- -- -- 5.4* -- -- 5.0 -- 5.1* 4.7 4.3 4.2 CO2 mmol/L -- -- -- 23 -- -- -- -- 23 21* 22 22 BUN mg/dL -- -- -- 21 -- -- -- -- 31* 22 22 25 CREATININE mg/dL -- -- -- 1.11* -- -- -- -- 1.32* 0.96 0.97 1.18* BEDSIDE GLUCOSE mg/dL 86 94 96 -- 108* < > -- < > -- -- -- -- GLUCOSE mg/dL -- -- -- 85 -- -- -- -- 105* 153* 143* 85 < > = values in this interval not displayed. Results from last 7 days Lab Units 01/03/24 0459 01/02/24 0200 01/01/24204412/31/23 0937 INR 1.0 1.1 1.2* 1.1 PROTIME sec 12.2 13.2 13.7* 12.5 APTT sec -- -- -- 36 Imaging No results found. I/O I/O last 3 completed shifts: In: 3710.2 [P.O.:100; I.V.:3607.3; IV Piggyback:2.9] Out: 1645 [Urine:1645] No intake/output data recorded. Vitals Vitals: 01/04/24 1121 BP: Pulse: Resp: Temp: 37.2 C (98.9 F) SpO2: Physical Examination Physical Exam HENT: Mouth/Throat: Mouth: Mucous membranes are dry. Pharynx: Oropharynx is clear. Eyes: Pupils: Pupils are equal, round, and reactive to light. Cardiovascular: Pulses: Dorsalis pedis pulses are detected w/ doppler on the right side and detected w/ doppler on the leftside. Posterior tibial pulses are detected w/ doppler on the right side and detected w/ doppler on the left side. Abdominal: General: Bowel sounds are normal. Palpations: Abdomen is soft. Skin: General: Skin is warm and dry. Capillary Refill: Capillary refill takes 2 to 3 seconds. Neurological: General: No focal deficit present. Mental Status: She is alert and oriented to person, place, and time. Vascular: Right Lower Extremity Right lower extremity pulses DP: detected w/ doppler PT: detected w/ doppler Right lower extremity edema: none Left Lower Extremity Left lower extremity pulses DP: detected w/ doppler PT: detected w/ doppler Left lower extremity edema: none Assessment/Plan: Patient has positive UTI per urinalysis. Patient family member and patient state that she has chronic UTIs and sees an infectious disease doctor. She states that she also has frequent bouts of C diffdue to antibiotics for UTI treatment. Urine culture in process Patient potassium still elevated at 5.4 despite Lokelma. Ordered insulin IV 10 units with 1 amp of dextrose. Recheck potassium pending Xarelto cost analysis sent Continue daily dressing changes Urology following for acute retention issues Beckman catheter in place. Urology we will attempt to doa void trial prior to discharge. Continue PT/OT Awaiting dispo for sniff placement XAVIER Francis [facility] [place] Daytime office/After-hours call number: [phone] This note was created with the assistance of a speech-recognition program. Although the intention is to generate a document that actually reflects the content of the visit, no guarantees can be provided that every mistake has been identified and corrected by editing. XAVIER Brown 01/04/24 1323 XAVIER Brown 01/04/24 1334 * TIFFANIE Evans - 01/04/2024 8:11 AM EST Urology Progress Note CC: Urinary retention 3 Subjective: Tolerating beckman catheter, no ambulation yet and no BM since being admitted 12/31 Weight: 70.4 kg (155 lb 3.3 oz) Patient Vitals for the past 24 hrs: BP Temp Temp src Pulse Resp SpO2 01/04/24 0720 150/54 37.7 C (99.8 F) Oral 76 16 97 % 01/04/24 0317 149/53 37.1 C (98.7 F) Oral 79 17 95 % 01/03/24 2342 -- 37.9 C (100.3 F) Oral 76 17 94 % 01/03/24 2253 147/48 37.6 C (99.6 F) Oral 76 19 94 % 01/03/24 2218 161/49 -- -- 90 19 91 % 01/03/24 1900 158/51 (!) 38.5 C (101.3 F) -- 90 19 92 % 01/03/24 1500 156/46 37.1 C (98.7 F) Oral 82 14 96 % 01/03/24 1109 124/43 37.1 C (98.8 F) Oral 68 13 97 % Intake/Output Summary (Last 24 hours) at 01/04/2024 0811 Last data filed at 01/04/2024 0321 Gross per 24 hour Intake 2198.89 ml Output 1245 ml Net 953.89 ml Results from last 7 days Lab Units 01/04/24 0724 01/04/24 0506 01/03/24 1520 01/03/24 1345 01/03/24 0721 01/03/24 0459 01/02/24 0200 POTASSIUM mmol/L -- 5.4* -- 5.0 -- 5.1* 4.7 CHLORIDE mmol/L -- 103 -- -- -- 104 106 CO2 mmol/L -- 23 -- -- -- 23 21* BUN mg/dL -- 21 -- -- -- 31* 22 CREATININE mg/dL -- 1.11* -- -- -- 1.32* 0.96 BEDSIDE GLUCOSE mg/dL 96 -- < > -- < > -- -- GLUCOSE mg/dL -- 85 -- -- -- 105* 153* CALCIUM mg/dL -- 8.6 -- -- -- 9.0 8.4* < > = values in this interval not displayed. Results from last 7 days Lab Units 01/04/24 0506 01/03/24 0459 01/02/24 0200 WBC X10E9/L 15.7* 14.3* 11.9* HEMOGLOBIN g/dL 8.8* 9.2* 8.8* HEMATOCRIT % 25.8* 27.1* 25.6* PLATELETS X10E9/L 224 303 285 Lab Results Component Value Date SPECIFICGRA 1.016 12/31/2023 LEUKOCYTE MODERATE (A) 12/31/2023 GLU 96 01/04/2024 UROBILINOGEN <1.1 12/31/2023 Additional Lab/culture results: Urine cx 01/03/24: pending Physical Exam: Physical Exam Vitals reviewed. HENT: Head: Atraumatic. Mouth/Throat: Mouth: Mucous membranes are dry. Eyes: Conjunctiva/sclera: Conjunctivae normal. Cardiovascular: Rate and Rhythm: Normal rate. Pulmonary: Effort: Pulmonary effort is normal. Abdominal: General: There is no distension. Palpations: Abdomen is soft. Tenderness: There is no abdominal tenderness. Genitourinary: Comments: Beckman in place draining clear yellow urine Neurological: Mental Status: She is alert and oriented to person, place, and time. Interval Imaging Findings: Impression: 88 yof -Urinary retention -Immobility -Constipation -Hx of urethral sling -Hx of recurrent UTI Follow up Plan: -Continue beckman for now, PT/OT to work with her today. -Plan void trial when more ambulatory -Please call closer to discharge to see if she is ready for void trial, [phone] -Discussed with TIFFANIE Longo 01/04/24 0818 Cosigned by Russ Yarbrough MD at 01/04/2024 12:13 PM EST * Coy Gaytan RN - 01/03/2024 10:45 PM EST Images from the original note were not included. FOLLOW-UP: Post-Intensive Care Rounding Note Patient: Delicia Hsu : 1935 Age: 88 y.o. 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 Recorded vital signs are stable and the patient is not noted to be in any apparent distress. Telemetry and monitoring noted. Staff may call with any issues or concerns regarding her clinical presentation or stability. Thank you, Coy Gaytan RN Rapid Response: [facility] * Bonnie Wetzel RN - 01/03/2024 12:35 PM EST Images from the original note were not included. FOLLOW-UP: Post-Intensive Care Rounding Note Patient: Delicia Hsu : 1935 Age: 88 y.o. 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 Recorded vital signs are stable and the patient is not noted to be in any apparent distress. Telemetry and monitoring noted. Staff may call with any issues or concerns regarding her clinical presentation or stability. Thank you, BONNIE WETZEL RN Rapid Response: [facility] * Devorah La MD - 01/03/2024 10:02 AM EST [facility] [place] Vascular Service Progress Note Patient ID: Delicia Hsu, 88 y.o. female Date of Admission: 01/01/2024 10:09 AM MRN; [id number] Referring Physician: Deuce Kirkland MD PCP: GYPSY MCMAHON MD SUBJECTIVE AND INTERVAL HISTORY: Pt seen and examined at bedside. Patient retained greater than 400 mL of urine and a bladder scan overnight. Patient was subsequently straight cath. Patient still has yet to independently void urine. Afebrile. Vital signs stable. Dressing change was performed today. New pictures in the chart. Of the left lower extremity medial lower leg wound there is concern for Pseudomonas so we will do asceticacid wet-to-dry dressing changes. Patient was having pain so 0.5 Dilaudid was given. PAST MEDICAL HISTORY/PROBLEM LIST Patient Active Problem List Diagnosis PAD (peripheral artery disease) ([facility] 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 ([facility]) Venous ulcer of right leg ([facility]) Anemia Arteriosclerosis of coronary artery Arthritis of right knee Internal derangement of right knee C. difficile colitis Chronic ulcer of lower extremity ([facility]) Non-pressure chronic ulcer of right lower leg, limited to breakdown of skin ([facility]) Chronic ulcer of right heel ([facility]) Closed fracture of neck of femur ([facility]) Complete tear of right rotator cuff Diarrhea Essential hypertension Gastroesophageal reflux disease Hip bursitis, left Hypercalcemia Hyperlipidemia Immunocompromised state ([facility]) Ingrown nail 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 ([facility]) 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 Other abnormalities of gait and mobility Recurrent Clostridioides difficile diarrhea Recurrent UTI Urge incontinence Venous insufficiency (chronic) (peripheral) 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 ([facility]) Peripheral vascular disease ([facility]) 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 ([facility]) Venous ulcer of right leg ([facility]) Critical limb ischemia of both lower extremities with rest pain ([facility]) Venous ulcer of ankle, right ([facility]) Encounter for therapeutic drug monitoring OBJECTIVE: Vitals Vital signs: Vitals: 01/03/24 0330 01/03/24 0400 01/03/24 0408 01/03/24 0717 BP: 153/60 146/52 Pulse: 86 79 Resp: 20 16 Temp: 36.6 C (97.9 F) 36.6 C (97.8 F) TempSrc: Oral Oral SpO2: 98% 97% Weight: 69 kg (152 lb 1.9 oz) 70.4 kg (155 lb 3.3 oz) Height: Temperature Range Last 24 Hours : Temp: 36.6 C (97.8 F) Temp Av.3 C (97.4 F) Min: 36.1 C (96.9F) Max: 36.6 C (97.9 F) Admit Weight: 65.3 kg (144 lb) Body mass index is 22.27 kg/m . Last Weights: Wt Readings from Last 3 Encounters: 01/03/24 70.4 kg (155 lb 3.3 oz) 12/31/23 65.4 kg (144 lb 2.9 oz) 12/30/23 64 kg (141 lb) I/O's: Intake/Output Summary (Last 24 hours) at 01/03/2024 1002 Last data filed at 01/03/2024 0408 Gross per 24 hour Intake 1511.28 ml Output 400 ml Net 1111.28 ml Respiratory Source: O2 Device: Nasal cannula PHYSICAL EXAMINATION: General appearance: Awake, alert, O x3 in no acute distress. Lungs: no increased work of breathing Heart: RRR Abdomen: soft, ND, NTTP Lower Extremities: RLE: groin incision intact, some fullness. Dressing CDI, strong doppler DP/PT signal LABS: Results from last 7 days Lab Units 01/03/2445801/02/2419901/01/24204412/31/23 0937 WBC X10E9/L 14.3* 11.9* 13.3* 7.5 HEMOGLOBIN g/dL 9.2* 8.8* 8.9* 10.3* HEMATOCRIT % 27.1* 25.6* 25.8* 29.8* PLATELETS X10E9/L 303 285 270 387 Results from last 7 days Lab Units 01/03/24 0721 01/03/2445801/02/2419901/01/24204412/31/23 0937 SODIUM mmol/L -- 137 136 136 139 POTASSIUM mmol/L -- 5.1* 4.7 4.3 4.2 CO2 mmol/L -- 23 21* 22 22 BUN mg/dL -- 31* 22 22 25 CREATININE mg/dL -- 1.32* 0.96 0.97 1.18* BEDSIDE GLUCOSE mg/dL 103* -- -- -- -- GLUCOSE mg/dL -- 105* 153* 143* 85 Results from last 7 days Lab Units 01/03/24 04501/02/24 0200 01/01/24204412/31/23 0937 INR 1.0 1.1 1.2* 1.1 PROTIME sec 12.2 13.2 13.7* 12.5 APTT sec -- -- -- 36 ASSESSMENT: 88 y.o. female with peripheral vascular disease and venous insufficiency s/p admitted 01/01/2024 s/p right iliofemoral endarterectomy + patch angioplasty + iliac stent + fem-pop bypass 12/31. Doing well postop PLAN/RECOMMENDATIONS: Dressing change performed today. Of the right lower extremity, there was concern for Pseudomonas involvement of the medial lower leg wound. We will do ascetic acid wet-to-dry dressing for this wound, covered by Kerlix and Mckinley wrap. For the right lower extremity upper thigh incision we will do Adaptic covered with Kerlix and Mckinley. If patient is still has not voided by this afternoon then we will consult Urology and consider adding Flomax Consulted social work for sniff placement. Follow up on outpatient Xarelto cost Physical therapy recommending SNF for dispo Continue medical mgmt and supportive care Diet: Regular diet IVF: saline lock now tolerating PO Anticoagulation: hepgtt 500, will transition to xarelto 2.5BID on discharge plavix Wound care: daily dressing change Continue to encourage ambulation, activity, and IS use Devorah La MD PGY-1 Vascular Surgery Cosigned by Lupillo Dempsey MD at 01/03/2024 10:51 AM EST Associated attestation - Lupillo Dempsey MD - 01/03/2024 10:51 AM EST Attending Attestation: I saw the patient. I performed or was present for the critical/alvarado portions of the service. I was directly involved in the management and treatment plan of the patient. I reviewed the resident's note. Additional Notes/Findings: This patient was seen at the bedside on vascular surgery rounds. She had some urinary retention that may still be an issue, we will continue to monitor. If she can not void spontaneously then placement of a Beckman catheter would be appropriate. She was straight cathed overnight last night. Because of concerns of Pseudomonas in her medial calf wound we will initiate ascetic acid for her wet-to-dry dressings. We will continue to monitor as she heals. Dressings with compression would be appropriate to help control edema and promote healing. In addition to her arterial disease she does have some history of venous disease in her calf wound is likely a venous stasis ulcer. * Giana Nunez RN - 01/02/2024 7:42 PM EST Images from the original note were not included. Post-Intensive Care Rounding Note Patient: Delicia Hsu : 1935 Age: 88 y.o. 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 No acute changes noted. Staff encouraged to call with any issues, questions or concerns that may arise regarding the patient throughout the shift. Thank you, Jarod uNnez RN Rapid Response: [facility] * Ron Medellin MD - 01/02/2024 9:49 AM EST [facility] V[facility] [place] Vascular Service Progress Note Patient ID: Delicia Hsu, 88 y.o. female Date of Admission: 01/01/2024 10:09 AM MRN; [id number] Referring Physician: Deuce Kirkland MD PCP: GYPSY MCMAHON MD SUBJECTIVE AND INTERVAL HISTORY: Pt seen and examined at bedside. No acute events overnight per pt and nurse. 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 ([facility]) 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 Other abnormalities of gait and mobility Recurrent Clostridioides difficile diarrhea Recurrent UTI Urge incontinence Venous insufficiency (chronic) (peripheral) 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 ([facility]) Peripheral vascular disease ([facility]) 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 ([facility] Venous ulcer of right leg ([facility]) Critical limb ischemia of both lower extremities with rest pain ([facility]) Venous ulcer of ankle, right ([facility]) Encounter for therapeutic drug monitoring OBJECTIVE: Vitals Vital signs: Vitals: 01/02/24 0815 01/02/24 0900 01/02/24 0913 01/02/24 0932 BP: 128/41 116/41 Pulse: 55 61 60 60 Resp: 16 21 16 13 Temp: TempSrc: SpO2: 98% 99% 100% 94% Weight: Height: Temperature Range Last 24 Hours : Temp: 36.2 C (97.2 F) Temp Av.9 C (96.7 F) Min: 34.4 C (94 F) Max: 36.3 C (97.4 F) Admit Weight: 65.3 kg (144 lb) Body mass index is 21.19 kg/m . Last Weights: Wt Readings from Last 3 Encounters: 01/01/24 67 kg (147 lb 11.3 oz) 12/31/23 65.4 kg (144 lb 2.9 oz) 12/30/23 64 kg (141 lb) I/O's: Intake/Output Summary (Last 24 hours) at 01/02/2024 0949 Last data filed at 01/02/2024 0700 Gross per 24 hour Intake 2974.92 ml Output 1260 ml Net 1714.92 ml Respiratory Source: O2 Device: None (Room air) PHYSICAL EXAMINATION: General appearance: Awake, alert, O x3 in no acute distress. Lungs: no increased work of breathing Heart: RRR Abdomen: soft, ND, NTTP Lower Extremities: RLE: groin incision intact, some fullness. Dressing CDI, strong doppler DP/PT signal LABS: Results from last 7 days Lab Units 01/02/24 0200 01/01/24204412/31/23 0937 WBC X10E9/L 11.9* 13.3* 7.5 HEMOGLOBIN g/dL 8.8* 8.9* 10.3* HEMATOCRIT % 25.6* 25.8* 29.8* PLATELETS X10E9/L 285 270 387 Results from last 7 days Lab Units 01/02/24 0200 01/01/24204412/31/23 0937 SODIUM mmol/L 136 136 139 POTASSIUM mmol/L 4.7 4.3 4.2 CO2 mmol/L 21* 22 22 BUN mg/dL 22 22 25 CREATININE mg/dL 0.96 0.97 1.18* GLUCOSE mg/dL 153* 143* 85 Results from last 7 days Lab Units 01/02/24 02001/01/24204412/31/23 0937 INR 1.1 1.2* 1.1 PROTIME sec 13.2 13.7* 12.5 APTT sec -- -- 36 ASSESSMENT: 88 y.o. female with peripheral vascular disease and venous insufficiency s/p admitted 01/01/2024 s/p right iliofemoral endarterectomy + patch angioplasty + iliac stent + fem-pop bypass 12/31. Doing well postop PLAN/RECOMMENDATIONS: Continue medical mgmt and supportive care Diet: advance to gen diet as tolerated IVF: saline lock now tolerating PO Anticoagulation: hepgtt 500, will transition to xarelto 2.5BID on discharge plavix Wound care: daily dressing change Remove beckman cath DC ART line Continue to encourage ambulation, activity, and IS use Okay for transfer out of ICU PT consult for dispo planning Corey Medellin MD Vascular Surgery Fellow Cosigned by Sabrina Perez MD at 01/04/2024 12:12 PM EST Associated attestation - Sabrina Perez MD - 01/04/2024 12:12 PM EST I saw and evaluated the patient on 01/02/24, participating in the alvarado portions of the service. I reviewed the vascular fellow's note. I agree with the vascular fellow's findings and plan. [facility] of care [facility] * Plan of Care - Laquita Argueta RN - 01/07/2024 4:19 AM EST Problem: Pain Goal: Patient goal is pain score less than 4, able to rest, and participant in treatment plan as appropriate Description: INTERVENTIONS: 1. Encourage patient or legal national account representative to report early pain and ask for pain medicine when needed 2. Assess pain using appropriate pain scale and include the scale used when documenting 3. Administer analgesics based on type and severity of pain and evaluate response within appropriate time frame 4. Implement non-pharmacological measures as appropriate and evaluate response 5. Consider cultural and social influences on pain and pain management 6. Notify LIP if interventions ineffective or patient reports new pain 7. Monitor vital signs including pulse ox, end-tidal CO2 based on pain intervention 8. Reassess pain per policy 9. Teach patient or legal national account representative interventions for comforting Outcome: Progressing Note: Evaluation of progress towards goal: Pt encouraged to monitor one's own pain. PRN pain meds available. Continue to monitor pt. Problem: Safety Goal: Patient will be injury free during hospitalization Description: INTERVENTIONS: 1. Assess patient's risk for falls and implement fall prevention plan of care per policy 2. Provide and maintain a safe environment 3. Proper use of double Identifiers 4. Medication administration using the 5 rights 5. Hand hygiene 6. Specimens are labeled at the bedside 7. Instruct patient/ patient national account representative about use of safety devices 8. Include patient/ patient national account representative in decisions related to safety Outcome: Progressing Note: Evaluation of progress towards goal: Safety measures initiated/maintained. Patient remains safe from injury/falls, continue to monitor. Problem: Infection Goal: Absence of infection during hospitalization Description: Interventions: 1. Assess and monitor for signs and symptoms of infection 2. Monitor lab/diagnostic results 3. Monitor all insertion sites i.e., indwelling lines, tubes and drains 4. Monitor endotracheal (as able) and nasal secretions for changes in amount and color 5. Administer medications as ordered 6. Instruct and encourage patient and family to use good hand hygiene technique 7. Identify and instruct patient/patient national account representative in use of appropriate isolation precautionsfor identified infection/symptoms 8. Provide and discuss with patient/patient national account representative on educational MDRO sheet 9. Encourage and monitor nutritional status daily and consult supervisor loading if indicated 10. Implement neutropenic guidelines as needed 11. Review exposure to history of communicable disease and recent travel history on admission 12. Encourage annual influenza vaccine 13. Encourage pneumonia vaccine Outcome: Progressing Note: Evaluation of progress towards goal: Vitals sign wnl. No sign of infection noted. Problem: Knowledge Deficit Goal: Patient/patient national account representative demonstrates understanding of disease process, treatment plan,medications, and discharge instructions Description: INTERVENTIONS 1. Complete learning assessment and assess knowledge base 2. Provide teaching at level of understanding 3. Provide teaching via preferred learning method(s) Outcome: Progressing Note: Evaluation of progress towards goal: Patient/patient national account representative demonstrates understanding of disease process, treatment plan, medications, and discharge instructions. Problem: Discharge Planning Goal: Discharge to post-acute care, other facility, or home with appropriate resources Description: Patient's goal is: snf INTERVENTIONS 1. Conduct assessment to determine patient/family and health care team treatment goals, and need for post-acute services based on payer coverage, community resources, and patient preferences, and barriers to discharge 2. Coordinate with Social work, Care Navigation, and Utilization Review to arrange appropriate level of services according to patient's needs based on patient preference and payer coverage in collaboration with the physician and health care team 3. Address psychosocial, clinical, and financial barriers to discharge as identified in assessment in conjunction with the patient/family and health care team 4. Consult appropriate ancillary services (i.e.. PT/OT/ST, etc) as needed 5. Communicate with and update the patient/family, physician, and health care team regarding progress on the discharge plan 6. Identify discharge learning needs (meds, wound care, etc). 7. Arrange for needed discharge transportation as appropriate Outcome: Progressing Note: Evaluation of progress towards goal: Discharge to rehab facility, or home with appropriate resources. Problem: Potential for Compromised Skin Integrity Goal: Skin integrity is maintained or improved Description: Patient's goal is: INTERVENTIONS 1. Perform initial skin assessment on admission and as needed 2. Turn patient every 2 hours and PRN 3. Relieve pressure to bony prominences 4. Avoid shearing 5. Keep skin clean and dry 6. Alternate a full bath with partial baths for elderly 7. Apply lotion/moisturizer on skin 8. Monitor patient's hygiene practices 9. Float heels 10. Collaborate with interdisciplinary team and initiate plans and interventions as needed Outcome: Progressing Note: Evaluation of progress towards goal: Skin integrity is maintained. Patient is kept dry. Patient skin is intact. Will continue to monitor. Problem: Urinary Incontinence Goal: Perineal skin integrity is maintained or improved Description: INTERVENTIONS 1. Assess genitourinary system, perineal skin, labs (urinalysis), and history of incontinence to include past management, aggravating, and alleviating factors 2. Keep skin clean and dry 3. Apply skin protectant 4. Develop skin care regimen 5. Provide privacy when changing patients incontinence device to maintain their dignity 6. Consider placing an indwelling catheter 7. Collaborate with interdisciplinary team and initiate plans and interventions as needed Outcome: Progressing Note: Evaluation of progress towards goal: Problem: Moderate - High Risk Fall Score Description: Tamayo Fall Score of =/> 25 or indicated by [facility] Assessment Goal: Patient should be free from fall Description: Interventions: 1. Combes to environment 2. Hourly rounds addressing the 4 P's (Pain, Positioning, Possessions, Potty) 3. Clear area of hazards (spills, clutter, electrical cords, unnecessary equipment) 4. Place equipment (bed & TV controls, call light, phone, urinal) within reach 5. Encourage patient to wear glasses and hearing aides as appropriate 6. Maintain bed in lowest position 7. Lock wheels on bed/wheelchair 8. Provide adequate lighting, including night light 9. Assess need for additional bedding, food/fluids, pain med's prior to sleep/routinely 10. Provide gripper slippers or personal non-skid footwear 11. Teach patient and patient national account representative to maintain environment for safety and engage in all aspects of fall prevention program 12. Remind patient to call for help before getting out of bed 13. Initiate bed/chair/exit alarms supportive devices as appropriate, (chair wedge, no-skid floor mat, raised edge mattress, hip protectors) 14. Locate patient bed assignment for optimal visualization 15. Evaluate and identify Safe Patient Handling Equipment needs 16. Provide supervision when out of bed or chair 17. Utilize gait belt as needed to assist with ambulation 18. Place adaptive equipment (cane, walker) within reach 19. Request patient national account representative bring adaptive equipment/mobility aids from home or obtain and provide as needed 20. Consult pharmacy regarding effects of med's affecting mobility, cognition, and alternatives 21. Obtain physician order for PT if risk factors associated with mobility are present 22. Obtain physician order for OT as appropriate 23. Utilize diversional activities 24. Educate patient and patient national account representative how to maintain a safe environment during visitationtimes (notify nurse prior to leaving bedside) 25. Consider appropriateness of medical or non-medical interpreter 26. Set up voiding schedule as appropriate (every 2 hours) Outcome: Progressing Note: Evaluation of progress towards goal: Area free from hazards, patient call light within reach,will continue to monitor patient for risk of falls. [facility]11-28-2024 Plan of care note* Plan of Care - Matilda Wilson RN - 01/06/2024 2:13 PM EST Problem: Pain Goal: Patient goal is pain score less than 4, able to rest, and participant in treatment plan as appropriate Description: INTERVENTIONS: 1. Encourage patient or legal national account representative to report early pain and ask for pain medicine when needed 2. Assess pain using appropriate pain scale and include the scale used when documenting 3. Administer analgesics based on type and severity of pain and evaluate response within appropriate time frame 4. Implement non-pharmacological measures as appropriate and evaluate response 5. Consider cultural and social influences on pain and pain management 6. Notify LIP if interventions ineffective or patient reports new pain 7. Monitor vital signs including pulse ox, end-tidal CO2 based on pain intervention 8. Reassess pain per policy 9. Teach patient or legal national account representative interventions for comforting Outcome: Not Progressing Note: Evaluation of progress towards goal: Patient unable to tolerate PRN medications. She becomes confused and refuses to use medication other than Tylenol for pain. Problem: Safety Goal: Patient will be injury free during hospitalization Description: INTERVENTIONS: 1. Assess patient's risk for falls and implement fall prevention plan of care per policy 2. Provide and maintain a safe environment 3. Proper use of double Identifiers 4. Medication administration using the 5 rights 5. Hand hygiene 6. Specimens are labeled at the bedside 7. Instruct patient/ patient national account representative about use of safety devices 8. Include patient/ patient national account representative in decisions related to safety Outcome: Progressing Note: Evaluation of progress towards goal: Family member at bedside. Patient educated to use the call light to call for assistance. Hourly rounding completed to meet patient's needs. Problem: Knowledge Deficit Goal: Patient/patient national account representative demonstrates understanding of disease process, treatment plan,medications, and discharge instructions Description: INTERVENTIONS 1. Complete learning assessment and assess knowledge base 2. Provide teaching at level of understanding 3. Provide teaching via preferred learning method(s) Outcome: Progressing Note: Evaluation of progress towards goal: IV ATBx treatment with Rocephin. ID following patient's case. Problem: Discharge Planning Goal: Discharge to post-acute care, other facility, or home with appropriate resources Description: Patient's goal is: snf INTERVENTIONS 1. Conduct assessment to determine patient/family and health care team treatment goals, and need for post-acute services based on payer coverage, community resources, and patient preferences, and barriers to discharge 2. Coordinate with Social work, Care Navigation, and Utilization Review to arrange appropriate level of services according to patient's needs based on patient preference and payer coverage in collaboration with the physician and health care team 3. Address psychosocial, clinical, and financial barriers to discharge as identified in assessment in conjunction with the patient/family and health care team 4. Consult appropriate ancillary services (i.e.. PT/OT/ST, etc) as needed 5. Communicate with and update the patient/family, physician, and health care team regarding progress on the discharge plan 6. Identify discharge learning needs (meds, wound care, etc). 7. Arrange for needed discharge transportation as appropriate Outcome: Progressing Note: Evaluation of progress towards goal: Patient anticipates d/c to [place] for rehab therapy. [id number] Plan of care note* Plan of Care - Laquita Argueta RN - 01/05/2024 11:47 PM EST Problem: Pain Goal: Patient goal is pain score less than 4, able to rest, and participant in treatment plan as appropriate Description: INTERVENTIONS: 1. Encourage patient or legal national account representative to report early pain and ask for pain medicine when needed 2. Assess pain using appropriate pain scale and include the scale used when documenting 3. Administer analgesics based on type and severity of pain and evaluate response within appropriate time frame 4. Implement non-pharmacological measures as appropriate and evaluate response 5. Consider cultural and social influences on pain and pain management 6. Notify LIP if interventions ineffective or patient reports new pain 7. Monitor vital signs including pulse ox, end-tidal CO2 based on pain intervention 8. Reassess pain per policy 9. Teach patient or legal national account representative interventions for comforting Outcome: Progressing Note: Evaluation of progress towards goal: Pt encouraged to monitor one's own pain. PRN pain meds available. Continue to monitor pt. Problem: Safety Goal: Patient will be injury free during hospitalization Description: INTERVENTIONS: 1. Assess patient's risk for falls and implement fall prevention plan of care per policy 2. Provide and maintain a safe environment 3. Proper use of double Identifiers 4. Medication administration using the 5 rights 5. Hand hygiene 6. Specimens are labeled at the bedside 7. Instruct patient/ patient national account representative about use of safety devices 8. Include patient/ patient national account representative in decisions related to safety Outcome: Progressing Note: Evaluation of progress towards goal: Safety measures initiated/maintained. Patient remains safe from injury/falls, continue to monitor. Problem: Infection Goal: Absence of infection during hospitalization Description: Interventions: 1. Assess and monitor for signs and symptoms of infection 2. Monitor lab/diagnostic results 3. Monitor all insertion sites i.e., indwelling lines, tubes and drains 4. Monitor endotracheal (as able) and nasal secretions for changes in amount and color 5. Administer medications as ordered 6. Instruct and encourage patient and family to use good hand hygiene technique 7. Identify and instruct patient/patient national account representative in use of appropriate isolation precautionsfor identified infection/symptoms 8. Provide and discuss with patient/patient national account representative on educational MDRO sheet 9. Encourage and monitor nutritional status daily and consult supervisor loading if indicated 10. Implement neutropenic guidelines as needed 11. Review exposure to history of communicable disease and recent travel history on admission 12. Encourage annual influenza vaccine 13. Encourage pneumonia vaccine Outcome: Progressing Note: Evaluation of progress towards goal: IV antibiotics continues for infection. Tolerating meds.Vitals within normal limits. Problem: Knowledge Deficit Goal: Patient/patient national account representative demonstrates understanding of disease process, treatment plan,medications, and discharge instructions Description: INTERVENTIONS 1. Complete learning assessment and assess knowledge base 2. Provide teaching at level of understanding 3. Provide teaching via preferred learning method(s) Outcome: Progressing Note: Evaluation of progress towards goal: Patient/patient national account representative demonstrates understanding of disease process, treatment plan, medications, and discharge instructions. Problem: Discharge Planning Goal: Discharge to post-acute care, other facility, or home with appropriate resources Description: Patient's goal is: snf INTERVENTIONS 1. Conduct assessment to determine patient/family and health care team treatment goals, and need for post-acute services based on payer coverage, community resources, and patient preferences, and barriers to discharge 2. Coordinate with Social work, Care Navigation, and Utilization Review to arrange appropriate level of services according to patient's needs based on patient preference and payer coverage in collaboration with the physician and health care team 3. Address psychosocial, clinical, and financial barriers to discharge as identified in assessment in conjunction with the patient/family and health care team 4. Consult appropriate ancillary services (i.e.. PT/OT/ST, etc) as needed 5. Communicate with and update the patient/family, physician, and health care team regarding progress on the discharge plan 6. Identify discharge learning needs (meds, wound care, etc). 7. Arrange for needed discharge transportation as appropriate Outcome: Progressing Note: Evaluation of progress towards goal: Discharge to rehab facility, or home with appropriate resources. Problem: Potential for Compromised Skin Integrity Goal: Skin integrity is maintained or improved Description: Patient's goal is: INTERVENTIONS 1. Perform initial skin assessment on admission and as needed 2. Turn patient every 2 hours and PRN 3. Relieve pressure to bony prominences 4. Avoid shearing 5. Keep skin clean and dry 6. Alternate a full bath with partial baths for elderly 7. Apply lotion/moisturizer on skin 8. Monitor patient's hygiene practices 9. Float heels 10. Collaborate with interdisciplinary team and initiate plans and interventions as needed Outcome: Progressing Note: Evaluation of progress towards goal: Skin integrity is maintained. Patient is kept dry. Patient skin is intact. Will continue to monitor. Problem: Moderate - High Risk Fall Score Description: Tamayo Fall Score of =/> 25 or indicated by [facility] Assessment Goal: Patient should be free from fall Description: Interventions: 1. Combes to environment 2. Hourly rounds addressing the 4 P's (Pain, Positioning, Possessions, Potty) 3. Clear area of hazards (spills, clutter, electrical cords, unnecessary equipment) 4. Place equipment (bed & TV controls, call light, phone, urinal) within reach 5. Encourage patient to wear glasses and hearing aides as appropriate 6. Maintain bed in lowest position 7. Lock wheels on bed/wheelchair 8. Provide adequate lighting, including night light 9. Assess need for additional bedding, food/fluids, pain med's prior to sleep/routinely 10. Provide gripper slippers or personal non-skid footwear 11. Teach patient and patient national account representative to maintain environment for safety and engage in all aspects of fall prevention program 12. Remind patient to call for help before getting out of bed 13. Initiate bed/chair/exit alarms supportive devices as appropriate, (chair wedge, no-skid floor mat, raised edge mattress, hip protectors) 14. Locate patient bed assignment for optimal visualization 15. Evaluate and identify Safe Patient Handling Equipment needs 16. Provide supervision when out of bed or chair 17. Utilize gait belt as needed to assist with ambulation 18. Place adaptive equipment (cane, walker) within reach 19. Request patient national account representative bring adaptive equipment/mobility aids from home or obtain and provide as needed 20. Consult pharmacy regarding effects of med's affecting mobility, cognition, and alternatives 21. Obtain physician order for PT if risk factors associated with mobility are present 22. Obtain physician order for OT as appropriate 23. Utilize diversional activities 24. Educate patient and patient national account representative how to maintain a safe environment during visitationtimes (notify nurse prior to leaving bedside) 25. Consider appropriateness of medical or non-medical interpreter 26. Set up voiding schedule as appropriate (every 2 hours) Outcome: Progressing Note: Evaluation of progress towards goal: Area free from hazards, patient call light within reach,will continue to monitor patient for risk of falls. [id number] Progress note* Discharge Planning Note - Juan Branch - 01/05/2024 10:11 AM EST DISCHARGE PLANNING NOTE Clinical Updates Sent to [facility] [place] (P# ; F# ) [facility]11-27-2024 Progress note* Discharge Planning Note - IVAN Coles - 01/05/2024 9:56 AM EST DISCHARGE PLANNING NOTE Task to [facility] to send clinical updates to [facility] [email or web address]. to follow. - IVAN Coles 01/05/24 9:56 AM [facility]11-27-2024 Plan of care note* Plan of Care - Monie Brown RN - 01/05/2024 7:38 AM EST Problem: Pain Goal: Patient goal is pain score less than 4, able to rest, and participant in treatment plan as appropriate Description: INTERVENTIONS: 1. Encourage patient or legal national account representative to report early pain and ask for pain medicine when needed 2. Assess pain using appropriate pain scale and include the scale used when documenting 3. Administer analgesics based on type and severity of pain and evaluate response within appropriate time frame 4. Implement non-pharmacological measures as appropriate and evaluate response 5. Consider cultural and social influences on pain and pain management 6. Notify LIP if interventions ineffective or patient reports new pain 7. Monitor vital signs including pulse ox, end-tidal CO2 based on pain intervention 8. Reassess pain per policy 9. Teach patient or legal national account representative interventions for comforting Outcome: Progressing Note: Evaluation of progress towards goal: Medicated for pain as needed Problem: Safety Goal: Patient will be injury free during hospitalization Description: INTERVENTIONS: 1. Assess patient's risk for falls and implement fall prevention plan of care per policy 2. Provide and maintain a safe environment 3. Proper use of double Identifiers 4. Medication administration using the 5 rights 5. Hand hygiene 6. Specimens are labeled at the bedside 7. Instruct patient/ patient national account representative about use of safety devices 8. Include patient/ patient national account representative in decisions related to safety Outcome: Progressing Note: Evaluation of progress towards goal: Bed low and locked, call light within reach Problem: Infection Goal: Absence of infection during hospitalization Description: Interventions: 1. Assess and monitor for signs and symptoms of infection 2. Monitor lab/diagnostic results 3. Monitor all insertion sites i.e., indwelling lines, tubes and drains 4. Monitor endotracheal (as able) and nasal secretions for changes in amount and color 5. Administer medications as ordered 6. Instruct and encourage patient and family to use good hand hygiene technique 7. Identify and instruct patient/patient national account representative in use of appropriate isolation precautionsfor identified infection/symptoms 8. Provide and discuss with patient/patient national account representative on educational MDRO sheet 9. Encourage and monitor nutritional status daily and consult supervisor loading if indicated 10. Implement neutropenic guidelines as needed 11. Review exposure to history of communicable disease and recent travel history on admission 12. Encourage annual influenza vaccine 13. Encourage pneumonia vaccine Outcome: Progressing Note: Evaluation of progress towards goal: Antibiotics started Problem: Knowledge Deficit Goal: Patient/patient national account representative demonstrates understanding of disease process, treatment plan,medications, and discharge instructions Description: INTERVENTIONS 1. Complete learning assessment and assess knowledge base 2. Provide teaching at level of understanding 3. Provide teaching via preferred learning method(s) Outcome: Progressing Note: Evaluation of progress towards goal: Reviewed plan of care with patient Problem: Discharge Planning Goal: Discharge to post-acute care, other facility, or home with appropriate resources Description: Patient's goal is: snf INTERVENTIONS 1. Conduct assessment to determine patient/family and health care team treatment goals, and need for post-acute services based on payer coverage, community resources, and patient preferences, and barriers to discharge 2. Coordinate with Social work, Care Navigation, and Utilization Review to arrange appropriate level of services according to patient's needs based on patient preference and payer coverage in collaboration with the physician and health care team 3. Address psychosocial, clinical, and financial barriers to discharge as identified in assessment in conjunction with the patient/family and health care team 4. Consult appropriate ancillary services (i.e.. PT/OT/ST, etc) as needed 5. Communicate with and update the patient/family, physician, and health care team regarding progress on the discharge plan 6. Identify discharge learning needs (meds, wound care, etc). 7. Arrange for needed discharge transportation as appropriate Outcome: Progressing Note: Evaluation of progress towards goal: Reviewed plan of care with patient [facility] [id number] Plan of care note* Plan of Care - Laquita Argueta RN - 01/05/2024 12:01 AM EST Problem: Pain Goal: Patient goal is pain score less than 4, able to rest, and participant in treatment plan as appropriate Description: INTERVENTIONS: 1. Encourage patient or legal national account representative to report early pain and ask for pain medicine when needed 2. Assess pain using appropriate pain scale and include the scale used when documenting 3. Administer analgesics based on type and severity of pain and evaluate response within appropriate time frame 4. Implement non-pharmacological measures as appropriate and evaluate response 5. Consider cultural and social influences on pain and pain management 6. Notify LIP if interventions ineffective or patient reports new pain 7. Monitor vital signs including pulse ox, end-tidal CO2 based on pain intervention 8. Reassess pain per policy 9. Teach patient or legal national account representative interventions for comforting Outcome: Progressing Note: Evaluation of progress towards goal: Pt encouraged to monitor one's own pain. PRN pain meds available. Continue to monitor pt. Problem: Safety Goal: Patient will be injury free during hospitalization Description: INTERVENTIONS: 1. Assess patient's risk for falls and implement fall prevention plan of care per policy 2. Provide and maintain a safe environment 3. Proper use of double Identifiers 4. Medication administration using the 5 rights 5. Hand hygiene 6. Specimens are labeled at the bedside 7. Instruct patient/ patient national account representative about use of safety devices 8. Include patient/ patient national account representative in decisions related to safety Outcome: Progressing Note: Evaluation of progress towards goal: Safety measures initiated/maintained. Patient remains safe from injury/falls, continue to monitor. Problem: Infection Goal: Absence of infection during hospitalization Description: Interventions: 1. Assess and monitor for signs and symptoms of infection 2. Monitor lab/diagnostic results 3. Monitor all insertion sites i.e., indwelling lines, tubes and drains 4. Monitor endotracheal (as able) and nasal secretions for changes in amount and color 5. Administer medications as ordered 6. Instruct and encourage patient and family to use good hand hygiene technique 7. Identify and instruct patient/patient national account representative in use of appropriate isolation precautionsfor identified infection/symptoms 8. Provide and discuss with patient/patient national account representative on educational MDRO sheet 9. Encourage and monitor nutritional status daily and consult supervisor loading if indicated 10. Implement neutropenic guidelines as needed 11. Review exposure to history of communicable disease and recent travel history on admission 12. Encourage annual influenza vaccine 13. Encourage pneumonia vaccine Outcome: Progressing Note: Evaluation of progress towards goal: IV antibiotics continues for infection. Tolerating meds.Vitals within normal limits. Problem: Knowledge Deficit Goal: Patient/patient national account representative demonstrates understanding of disease process, treatment plan,medications, and discharge instructions Description: INTERVENTIONS 1. Complete learning assessment and assess knowledge base 2. Provide teaching at level of understanding 3. Provide teaching via preferred learning method(s) Outcome: Progressing Note: Evaluation of progress towards goal: Patient/patient national account representative demonstrates understanding of disease process, treatment plan, medications, and discharge instructions. Problem: Discharge Planning Goal: Discharge to post-acute care, other facility, or home with appropriate resources Description: Patient's goal is: snf INTERVENTIONS 1. Conduct assessment to determine patient/family and health care team treatment goals, and need for post-acute services based on payer coverage, community resources, and patient preferences, and barriers to discharge 2. Coordinate with Social work, Care Navigation, and Utilization Review to arrange appropriate level of services according to patient's needs based on patient preference and payer coverage in collaboration with the physician and health care team 3. Address psychosocial, clinical, and financial barriers to discharge as identified in assessment in conjunction with the patient/family and health care team 4. Consult appropriate ancillary services (i.e.. PT/OT/ST, etc) as needed 5. Communicate with and update the patient/family, physician, and health care team regarding progress on the discharge plan 6. Identify discharge learning needs (meds, wound care, etc). 7. Arrange for needed discharge transportation as appropriate Outcome: Progressing Note: Evaluation of progress towards goal: Discharge to rehab facility, or home with appropriate resources. Problem: Potential for Compromised Skin Integrity Goal: Skin integrity is maintained or improved Description: Patient's goal is: INTERVENTIONS 1. Perform initial skin assessment on admission and as needed 2. Turn patient every 2 hours and PRN 3. Relieve pressure to bony prominences 4. Avoid shearing 5. Keep skin clean and dry 6. Alternate a full bath with partial baths for elderly 7. Apply lotion/moisturizer on skin 8. Monitor patient's hygiene practices 9. Float heels 10. Collaborate with interdisciplinary team and initiate plans and interventions as needed Outcome: Progressing Note: Evaluation of progress towards goal: Skin integrity is maintained. Patient is kept dry. Patient skin is intact. Will continue to monitor. Problem: Urinary Incontinence Goal: Perineal skin integrity is maintained or improved Description: INTERVENTIONS 1. Assess genitourinary system, perineal skin, labs (urinalysis), and history of incontinence to include past management, aggravating, and alleviating factors 2. Keep skin clean and dry 3. Apply skin protectant 4. Develop skin care regimen 5. Provide privacy when changing patients incontinence device to maintain their dignity 6. Consider placing an indwelling catheter 7. Collaborate with interdisciplinary team and initiate plans and interventions as needed Outcome: Progressing Note: Evaluation of progress towards goal: Problem: Moderate - High Risk Fall Score Description: Tamayo Fall [facility] =/> 25 [facility] Goal: Patient should be free from fall Description: Interventions: 1. Combes to environment 2. Hourly rounds addressing the 4 P's (Pain, Positioning, Possessions, Potty) 3. Clear area of hazards (spills, clutter, electrical cords, unnecessary equipment) 4. Place equipment (bed & TV controls, call light, phone, urinal) within reach 5. Encourage patient to wear glasses and hearing aides as appropriate 6. Maintain bed in lowest position 7. Lock wheels on bed/wheelchair 8. Provide adequate lighting, including night light 9. Assess need for additional bedding, food/fluids, pain med's prior to sleep/routinely 10. Provide gripper slippers or personal non-skid footwear 11. Teach patient and patient national account representative to maintain environment for safety and engage in all aspects of fall prevention program 12. Remind patient to call for help before getting out of bed 13. Initiate bed/chair/exit alarms supportive devices as appropriate, (chair wedge, no-skid floor mat, raised edge mattress, hip protectors) 14. Locate patient bed assignment for optimal visualization 15. Evaluate and identify Safe Patient Handling Equipment needs 16. Provide supervision when out of bed or chair 17. Utilize gait belt as needed to assist with ambulation 18. Place adaptive equipment (cane, walker) within reach 19. Request patient national account representative bring adaptive equipment/mobility aids from home or obtain and provide as needed 20. Consult pharmacy regarding effects of med's affecting mobility, cognition, and alternatives 21. Obtain physician order for PT if risk factors associated with mobility are present 22. Obtain physician order for OT as appropriate 23. Utilize diversional activities 24. Educate patient and patient national account representative how to maintain a safe environment during visitationtimes (notify nurse prior to leaving bedside) 25. Consider appropriateness of medical or non-medical interpreter 26. Set up voiding schedule as appropriate (every 2 hours) Outcome: Progressing Note: Evaluation of progress towards goal: Area free from hazards, patient call light within reach,will continue to monitor patient for risk of falls. flaveit [id number] Plan of care note* Plan of Care - Bhumika Neely RN - 01/04/2024 1:19 PM EST Problem: Pain Goal: Patient goal is pain score less than 4, able to rest, and participant in treatment plan as appropriate Description: INTERVENTIONS: 1. Encourage patient or legal national account representative to report early pain and ask for pain medicine when needed 2. Assess pain using appropriate pain scale and include the scale used when documenting 3. Administer analgesics based on type and severity of pain and evaluate response within appropriate time frame 4. Implement non-pharmacological measures as appropriate and evaluate response 5. Consider cultural and social influences on pain and pain management 6. Notify LIP if interventions ineffective or patient reports new pain 7. Monitor vital signs including pulse ox, end-tidal CO2 based on pain intervention 8. Reassess pain per policy 9. Teach patient or legal national account representative interventions for comforting Outcome: Progressing Note: Evaluation of progress towards goal: PRN pain medications available for comfort, patient states pain well controlled. Pain reassessed per policy. Problem: Safety Goal: Patient will be injury free during hospitalization Description: INTERVENTIONS: 1. Assess patient's risk for falls and implement fall prevention plan of care per policy 2. Provide and maintain a safe environment 3. Proper use of double Identifiers 4. Medication administration using the 5 rights 5. Hand hygiene 6. Specimens are labeled at the bedside 7. Instruct patient/ patient national account representative about use of safety devices 8. Include patient/ patient national account representative in decisions related to safety Outcome: Progressing Note: Evaluation of progress towards goal: Assessed patient's risk for falls and implemented fall prevention plan of care per policy. Provided and maintained a safe environment. Pt remains free from falls and injury during this stay. [id number] Progress note* PT/OT/OPTICAL STORE MANAGER - Fanny Roberts, PT - 01/04/2024 11:42 AM EST Physical Therapy Treatment Discharge Recommendations PT Recommendations: Snf Facility SNF/ECF Comments: Continue to recommend SNF. Pt now requiring 2 person assist for bed mobility and transfers with Ana Gordon. Increased confusion noted. 6 Clicks: Basic Mobility Turning from your back to your side while in a flat bed without using bed rails?: A little Moving from lying on your back to sitting on side of flat bed without using bed rails?: A lot Moving to and from bed to a chair (including w/c)?: A lot Standing up from a chair using your arms (e.g. w/c or bedside chair)?: A lot To walk in hospital room?: Total Climbing 3-5 steps with a railing?: Total Scoring 6 Clicks: Basic Mobility Raw Score: 11 CMS G Code Modifier: CL PT Treatment/Interventions: Functional transfer training, UE strengthening/ROM, LE strengthening/ROM, Endurance training, Equipment eval/education, Balance, Bed mobility, Gait training, Functional activities PT Frequency: 5-6days/week PT Duration: LOS Patient Response to Treatment: Slow progress, decreased activity tolerance, Slow progress, cognitive deficits Assessment Patient Assessment Therapy Problem List: Decreased ADL status, Decreased balance, Decreased cognition, Decreased endurance, Decreased mobility, Decreased high-level ADLs, Decreased UE strength, Decreased LE strength Patient Response to Treatment: Slow progress, decreased activity tolerance, Slow progress, cognitive deficits Mood/Affect: Appropriate for circumstances Rehab Prognosis: Good, With continued PT status post acute discharge Visit RN Communication: Yes Medical Record Reviewed: Yes PT Type of Visit: Treatment Precautions Activity: early mobility pass -OK to see per RN Equipment: RW, gait belt, Ana Stedy, O2, bed/chair alarm, Beckman Telemetry/Bioinformatics Engineer: Yes Oxygen Used: 2L via NC Other: Fall risk, confused, s/p RLE bypass Pain Assessment Pain Assessment: 0-10 Pain Score: (Pt unable to rate but groaning/grimacing with activity) Pain Type: Surgical pain Pain Location: Leg Pain Orientation: Right Pain Intervention(s): Ambulation/increased activity, Repositioned Response to Interventions: Pain unchanged, Quiet, Eyes closed Hearing / Speech / Vision Hearing: Hard of hearing/hearing concerns Speech: Within Functional Limits Cognition Overall Cognitive Status: Exceptions to Within Functional Limits Arousal/Alertness: Delayed responses to stimuli Attention Span: Difficulty attending to directions Memory: Decreased recall of recent events Orientation Level: Oriented to person, Oriented to age, Disoriented to situation, Disoriented to place, Disoriented to month, Disoriented to time Following Commands: Follows one step commands with increased time, Follows one step commands with repetition (inconsistent, often requires multiple repititions and verbal cues) Safety Judgment: Decreased awareness of need for assistance, Decreased awareness of need for safety Awareness of Errors: Decreased awareness of errors Insight of Deficits: Decreased awareness of deficits Problem Solving: Assistance required to identify errors made, Assistance required to implement solutions, Assistance required to generate solutions Interfering Components: Attention - sustained, Motor planning, Processing speed, Working memory Other: Pt more confused and lethargic this date. Requires extensive cues and time to process information. RN aware. Sensation Overall Sensation Status: Within Functional Limits Bed Mobility Supine to Sit: Max assist (2 person assist. LImited by decreased cognitition and abilty to follow simple commands as well as generalized weakness and RLE pain. HOB elevated and requires increased time and effort to complete.) Sit to Supine: (Not assessed. Pt up in chair at end of session with call light and needs in reach. Chair alarm on , Dtr in room. RN updated) Transfers Sit to Stand: Mod assist (2 person asist) Stand to Sit: Mod assist (2 person assist) Other: Attempted intial stand with RW but patient unable to complete with max A x 2. Ana Stedy then utilized. Pt required assist for bilat hand placement on SS bar. Mod x 2 required to complete STS d/t generalized weaknss and poor ability to process directions. Marked increased time and effort to complete. Gait Other: Not appopriate to attempt this date d/t confusion and generalized weakness. Balance Sitting Balance: Static: Fair Sitting Balance: Dynamic: Fair Standing Balance: Static: Poor Other: (Pt required CGA with BUE support while seated EOB for safety. Limited ability to chemical process project engineer Ana Stedy.) Activity Tolerance Endurance: Tolerates <30 minutes activity WITHOUT vital sign changes Other: Pt on 2L O2. No signtificant SOB noted and SpO2 maintained >90%. Limited by confusion, generalized weakness and RLE pain. Plan Physical Therapy Care Plan Physical Therapy Care Plan (Active) Template: PT - Physical Therapy Problem: Bed Mobility Dates: Start: 01/02/24 Disciplines: PT Goal: Patient will perform bed mobility with Modified [place] Dates: Start: 01/02/24 Expected End: 01/08/24 Description: HOB elevated and use of rail as needed Disciplines: PT Outcomes Date/Time User Outcome 01/04/24 1142 Fanny Roberts PT Not Progressing Problem: Gait Dates: Start: 01/02/24 Disciplines: PT Goal: Patient will perform gait with Modified [place] Dates: Start: 01/02/24 Expected End: 01/08/24 Description: With__RW__,__100__feet Goal Description: to facilitate household ambulation Disciplines: PT Outcomes Date/Time User Outcome 01/04/24 TyeBrooklynn Roberts PT Not Progressing Problem: ROM Dates: Start: 01/02/24 Disciplines: PT Goal: Improve ROM Dates: Start: 01/02/24 Expected End: 01/08/24 Description: Of extremity/ location: R knee to 0-90 degrees To facilitate: improved ability to transfer Disciplines: PT Outcomes Date/Time User Outcome 01/04/24 Tomasa Roberts PT Not Progressing Problem: Standing Balance Dates: Start: 01/02/24 Disciplines: PT Goal: Improve balance to good Dates: Start: 01/02/24 Expected End: 01/08/24 Description: Static with RW Dynamic with RW To promote safety with transfers and gait. Disciplines: PT Outcomes Date/Time User Outcome 01/04/24 TyeBrooklynn Roberts PT Not Progressing Problem: Strength Dates: Start: 01/02/24 Disciplines: PT Goal: Improve strength Dates: Start: 01/02/24 Expected End: 01/08/24 Description: Pt will perform x15 reps, AROM, of all prescribed LE exercises to improve strength andfacilitate their ability to transfer and ambulate. Disciplines: PT Outcomes Date/Time User Outcome 01/04/24 TyeBrooklynn Roberts PT Not Progressing Problem: Transfers Dates: Start: 01/02/24 Disciplines: PT Goal: Patient will perform transfers with Modified [place] Dates: Start: 01/02/24 Expected End: 01/08/24 Description: Goal Description: Using appropriate technique and hand placement for safety at home Disciplines: PT Outcomes Date/Time User Outcome 01/04/24 1142 Fanny Alejandra, PT Not Progressing Physical Therapy Care Plan (Resolved) There are no resolved problems. 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 Pt unable to ambulate at this time. 6 Clicks: Daily Activity Putting on and taking off regular lower body clothing?: Total Bathing (including washing, rinsing, drying)?: A lot Toileting, which includes using toilet, bedpan or urinal?: Total Putting on and taking off regular upper body clothing?: A little Taking care of personal grooming such as brushing teeth?: A little Eating meals?: A little Scoring Daily Activity Raw Score: 13 [facility] G Code Modifier: CL Therapy Plan Need for skilled Occupational Therapy to address deficits in ADL independence and functional mobility due to a status decline resulting from planned right iliofemoral endarterectomy, and fem-pop bypass on 12/31. Past Medical History: Diagnosis Date Anesthesia complication 2018 HAD HALLUCINATIONS FOR A FEW DAYS AFTER HIP SURGERY Arrhythmia Arthritis C. difficile diarrhea 12/2022 HOSPITALIZED, 01/2023 Cataract Cholecystitis Chronic kidney disease Colitis Coronary artery disease Critical limb ischemia of right lower extremity ([facility]) Dental disease UPPER AND LOWER DENTURE DIAZ (dyspnea on exertion) Fractures 2018 LEFT HIP GERD (gastroesophageal reflux disease) HL (hearing loss) Hyperlipidemia Hypertension Microscopic colitis PAD (peripheral artery disease) ([facility] [place]) Peptic ulceration BLEEDING ULCER ADMITTED 2018 X13 DAYS TATYANA Rash Skin cancer REMOVED Sleep apnea No CPAP Thin skin Urinary tract infection CHRONIC, SEES ID EVERY 3 MONTHS Visual impairment Wound of ankle RIGHT SINCE 07/2023 Past Surgical History: Procedure Laterality Date ABDOMINAL SURGERY ANGIOGRAM EXTREMITY LOWER Right 01/01/2024 Performed by Deuce Kirkland MD at [facility] SPECIAL PROC ANGIOPLASTY ILIAC STENT PLACEMENT Right 01/01/2024 Performed by Deuce Kirkland MD at [facility] SPECIAL PROC ANGIOPLASTY ILIAC-ILIAC SHOCKWAVE INTRAVASCULAR LITHOTRIPSY Right 11/18/2023 Performed by Deuce Kirkland MD at [facility] SPECIAL PROC ARTHROSCOPY SHOULDER W/ OPEN ROTATOR CUFF REPAIR Left 2011 BOVINE PATCH ANGIOPLASTY CUTDOWN FEMORAL Right 01/01/2024 Performed by Deuce Kirkland MD at [facility] SPECIAL PROC BOVINE PATCH ANGIOPLASTY ILEOFEMORAL Right 01/01/2024 Performed by Deuce Kirkland MD at [facility] SPECIAL PROC BYPASS ARTERY FEMORAL BELOW KNEE POPLITEAL W/ VEIN PATCH/ HIGH GSV LIGATION AND HARVEST Right 01/01/2024 Performed by Deuce Kirkland MD at [facility] SPECIAL PROC CARDIAC SURGERY CATARACT EXTRACTION CHOLECYSTECTOMY N/A 2008 CORONARY ARTERY BYPASS GRAFT 1999 x 5 ENDARTERECTOMY FEMORAL AND ILIOFEMORAL ENDARTERECTOMY Right 01/01/2024 Performed by Deuce Kirkland MD at [facility] SPECIAL PROC EYE SURGERY HERNIA REPAIR N/A 03/2012 HIP FRACTURE SURGERY Left 05/2017 HYSTERECTOMY N/A JOINT REPLACEMENT lower ext angiogram Bilateral 01/07/2022 Performed by Taryn Belle MD at [facility] CARDIAC CATH LABS SCLEROTHERAPY LOWER EXTREMITY Right 12/24/2023 Performed by Deuce Kirkland MD at [facility] TOTAL HIP ARTHROPLASTY Left 2019 VASCULAR SURGERY Angiogram No chief complaint on file. OT Treatment/Interventions: ADL retraining, Functional transfer training, UE strengthening/ROM, LE strengthening/ROM, Endurance training, Cognitive reorientation, Patient/family training, Equipment eval/education, Balance, Bed mobility, Compensatory technique education, Functional activities OT Frequency: 4-5days/week OT Duration: LOS Assessment Patient Assessment Therapy Problem List: Decreased ADL status, Decreased balance, Decreased cognition, Decreased endurance, Decreased high-level ADLs, Decreased mobility, Decreased safe judgement during ADL, Decreased self-care trans, Decreased UE strength, Decreased LE strength Patient Response to Treatment: Tolerated evaluation without adverse reaction Mood/Affect: Appropriate for circumstances Rehab Prognosis: Good, With continued OT status post acute discharge Visit RN Communication: Yes Medical Record Reviewed: Yes OT Type of Visit: Evaluation Precautions Activity: early mobility: pass; ok to see per RN Equipment: Gait belt, RW, ana stedy, bed/chair alarm, O2 via NC, beckman Telemetry/Bioinformatics Engineer: Yes Oxygen Used: 2L via NC Other: Fall risk, confused, s/p RLE bypass Pain Assessment Pain Assessment: 0-10 Pain Score: (did not provide numerical rating but groaning and grimacing with movement) Pain Type: Surgical pain Pain Location: Leg Pain Orientation: Right Pain Intervention(s): Repositioned, Ambulation/increased activity Response to Interventions: Pain unchanged, Quiet, Eyes closed Home Living Type of Home: (Independent living condo) Home Layout: One level Stairs to Enter: 0 Stairs in Home: 0 Bathroom Shower/Tub: Walk-in shower Bathroom Toilet: Raised (with grab bars) Bathroom Equipment: Grab bars in shower, Shower chair, Hand-held shower, Grab bars around toilet Home Equipment: Rolling walker, 4 Wheeled walker, Cane Other : pt uses 4WW/ RW during mobility GAGE MAKER. Prior Function Lives With: Son (lives with pt and IND living but does leave at times to tyler and complete other activites.) Receives Help From: Family (one local dtr that fills in for son when they are not home and 2nd dtr that is semi local and assist as able/needed) Level of Mobility: Independent with ADLs and functional transfers or gait Homemaking Assistance: Needs assistance Cleaning: Total assist (cleaning service) ADL / IADL Hand Dominance: Right Eating Assistance: Min assist Grooming Assistance: Min assist Bathing/Showering Assistance: Max assist Toilet/Commode Assistance: Total assist (beckman) UE Dressing Assistance: Min assist LE Dressing Assistance: Total assist Footwear Assistance: Total assist Other: Limited by lethargy, cognition, pain Home Management - IADL Other: Limited by lethargy, cognition, pain Cognition Overall Cognitive Status: Exceptions to Within Functional Limits Arousal/Alertness: Inconsistent responses to stimuli Attention Span: Difficulty dividing attention, Difficulty attending to directions Orientation Level: Oriented to person, Oriented to age, Disoriented to place, Disoriented to situation, Disoriented to time Following Commands: Follows one step commands with repetition, Follows one step commands with increased time Safety Judgment: Decreased awareness of need for assistance, Decreased awareness of need for safety Awareness of Errors: Decreased awareness of errors Insight of Deficits: Decreased awareness of deficits Problem Solving: Reduced Other: pt confused and lethargic this date. requires extensive time for processing. RN aware. Bed Mobility Supine to Sit: Max assist (x2) Sit to Supine: Unable to assess (pt up in chair at end of session with call light in reach, all needs met. RN present in room. chair alarm on.) Other: pt required max x2 for trunk elevation, BLEs and scooting hips toward EOB. Pt able to initiate bed mobility but unable to achieve sup to sit without max assist. pt demod L sided lateral lean requiring intermittent min A for upright sitting. Transfers Sit to Stand: Mod assist (x2) Stand to Sit: Mod assist (x2) Bed to Chair: Total assist (ana stedy) Other: Pt unable to achieve standing with RW due weakness, pain and cognition. Pt achieved standingwith ana stedy use and mod x2 assist. Pt c/o increasing pain in RLE with standing. Increased bed height and increased time/effort required. Gait Other: not safe to attempt this date Balance Sitting Balance: Static: Fair Sitting Balance: Dynamic: Fair Standing Balance: Static: Poor Standing Balance: Dynamic: Poor Other: Pt demod L lateral lean in sitting with min A to correct. With time, pt demod improved sitting balance. BUE support on ana stedy with mod x2 assist during standing balance. RUE Assessment: (generalized weakness and deconditioning) LUE Assessment: (generalized weakness and deconditioning) Activity Tolerance Endurance: Tolerates <30 minutes activity WITHOUT vital sign changes Other: fair/ poor overall tolerance. Limited by fatigue, weakness, cognition, pain. Plan Occupational Therapy Care Plan Occupational Therapy Care Plan (Active) Template: OT - Occupational Therapy Problem: Activity Tolerance Dates: Start: 01/04/24 Disciplines: OT Goal: Tolerate > 30 minutes of activity WITH rest breaks Dates: Start: 01/04/24 Expected End: 02/01/24 Description: Goal Description: Disciplines: OT Problem: Bathing LB Dates: Start: 01/04/24 Disciplines: OT Goal: Patient will perform bathing LB with Minimum Assist Dates: Start: 01/04/24 Expected End: 02/01/24 Description: Goal Description: Disciplines: OT Problem: Bathing UB Dates: Start: 01/04/24 Disciplines: OT Goal: Patient will perform bathing UB with Minimum Assist Dates: Start: 01/04/24 Expected End: 02/01/24 Description: Goal Description: Disciplines: OT Problem: Bed Mobility Dates: Start: 01/04/24 Disciplines: OT Goal: Patient will perform bed mobility with Minimum Assist Dates: Start: 01/04/24 Expected End: 02/01/24 Description: Goal Description: Disciplines: OT Problem: Cognition Dates: Start: 01/04/24 Disciplines: OT Goal: Improve cognition Dates: Start: 01/04/24 Expected End: 02/01/24 Description: To facilitate: Pt to improve to A&O x4 to return to baseline and improve functional participation in ADL tasks. Disciplines: OT Problem: Dressing LB Dates: Start: 01/04/24 Disciplines: OT Goal: Patient will perform dressing LB with Minimum Assist Dates: Start: 01/04/24 Expected End: 02/01/24 Description: Goal Description: Disciplines: OT Problem: Dressing UB Dates: Start: 01/04/24 Disciplines: OT Goal: Patient will perform dressing UB with Contact Guard Dates: Start: 01/04/24 Expected End: 02/01/24 Description: Goal Description: Disciplines: OT Problem: Functional Mobility Dates: Start: 01/04/24 Disciplines: OT Goal: Patient will perform functional mobility with Minimum Assist Dates: Start: 01/04/24 Expected End: 02/01/24 Description: Goal Description: Disciplines: OT Problem: Grooming Dates: Start: 01/04/24 Disciplines: OT Goal: Patient will perform grooming with Modified [place] Dates: Start: 01/04/24 Expected End: 02/01/24 Description: Goal Description: Disciplines: OT Problem: Sitting Balance Dates: Start: 01/04/24 Disciplines: OT Goal: Improve balance to good Dates: Start: 01/04/24 Expected End: 02/01/24 Description: Static Dynamic Disciplines: OT Problem: Standing Balance Dates: Start: 01/04/24 Disciplines: OT Goal: Improve balance to good Dates: Start: 01/04/24 Expected End: 02/01/24 Description: Static Dynamic Disciplines: OT Problem: Strength Dates: Start: 01/04/24 Disciplines: OT Goal: Improve strength Dates: Start: 01/04/24 Expected End: 02/01/24 Description: Of extremity/ location: Tolerate BUE exercises for improved endurance and strength during ADLs To facilitate: Disciplines: OT Problem: Toilet Transfers Dates: Start: 01/04/24 Disciplines: OT Goal: Patient will perform toilet transfers with Minimum Assist Dates: Start: 01/04/24 Expected End: 02/01/24 Description: Goal Description: Disciplines: OT Problem: Toileting Dates: Start: 01/04/24 Disciplines: OT Goal: Patient will perform toileting with Minimum Assist Dates: Start: 01/04/24 Expected End: 02/01/24 Description: Goal Description: Disciplines: OT Problem: Transfers Dates: Start: 01/04/24 Disciplines: OT Goal: Patient will perform transfers with Contact Guard Dates: Start: 01/04/24 Expected End: 02/01/24 Description: Goal Description: Disciplines: OT Occupational Therapy Care Plan (Resolved) There are no resolved problems. 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 Pharmacy will continue to follow the patient's clinical status closely and makethe necessary dosage adjustments if her renal function changes. Thank you for consulting pharmacy. Letty Minor RPh [facility]11-26-2024 Consult note* Letty Minor RPH - 01/04/2024 11:05 AM EST [facility] Department of Pharmacy Pharmacist to Physician Communication The patient will be started on cefepime 1000 mg every 12 hours with a loading dose to be given over30 minutes, followed by a maintenance dose to be given over 4 hours for the treatment of UTI via extended infusion per the [facility] approved renal dosing guidelines, based on an estimated creatinine clearance of 38.6 mL/min. Pharmacy will continue to follow the patient's clinical status closely and makethe necessary dosage adjustments if her renal function changes. Thank you for consulting pharmacy. Letty Minor RPh * Hilda Smith MD - 01/04/2024 10:17 AM EST Images from the original note were not included. Delicia Hsu [id number] 1935 CONSULTING SERVICE: INFECTIOUS DISEASES REASON FOR CONSULTATION: Suspected urinary tract infection C diff IMPRESSION/ RECOMMENDATIONS: Received steroids 01/01/2024 Fever Leukocytosis, multifactorial Blood cultures Follow serial WBC counts Follow serial temperatures Acute urinary retention Urinalysis concerning for urinary tract infection Urine culture pending Start cefepime Urology following Left lower extremity wound Peripheral vascular disease Status post angiography right lower extremity/ Angioplasty and iliac stent placement Bovine patch angioplasty cut down femoral and Iliofemoral right lower extremity / Femoral artery to popliteal artery below-knee bypass with vein patch/ hi GSV ligation and harvest right lower extremity/ Endarterectomy femoral and ileal femoral 01/01/2024 Wound care to follow Patient can follow-up with her Infectious Disease doctor after discharge Will check stool for C diff if diarrhea starts 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, History of Microscopic colitis Chronic kidney disease stage III Cardiac dysrhythmias Coronary artery disease Hypertension Dyslipidemia Peripheral vascular disease Venous insufficiency lower extremities Obstructive sleep apnea Peptic ulcer disease History of GI bleed Fracture left hip 2017 Gastroesophageal reflux disease Sensorineural hearing loss History of skin cancer removal History of angioplasty iliac iliac shockwave intravascular lithotripsy right- sided 11/18/2023 History of left hip fracture surgery 05/2017 History of left total hip arthroplasty 2019 Continue supportive care Defer the rest of the issues to PMD and other consultants Thank you very much for allowing me to participate in this patient care WORKUP REVIEWED: Blood cultures remain negative to date All pertinent labs reviewed by me as described below Imaging Studies: Fluoroscopy track vascular operative Result Date: 01/01/2024 Please refer to the vascular OP note for a dictation on this exam. Results from last 7 days Lab Units 01/04/24 0506 01/03/24 0459 01/02/24 0200 WBC X10E9/L 15.7* 14.3* 11.9* HEMOGLOBIN g/dL 8.8* 9.2* 8.8* HEMATOCRIT % 25.8* 27.1* 25.6* PLATELETS X10E9/L 224 303 285 Results from last 7 days Lab Units 01/04/24 0506 01/03/24 1345 01/03/24 0459 01/02/24 0200 POTASSIUM mmol/L 5.4* 5.0 5.1* 4.7 CHLORIDE mmol/L 103 -- 104 106 CO2 mmol/L -- 23 21* BUN mg/dL 21 -- 31* 22 CREATININE mg/dL 1.11* -- 1.32* 0.96 EGFR (CKD-EPI)NON-RACE DEPENDENT ml/min/1.73sq.m 48* -- 39* 57* CALCIUM mg/dL 8.6 -- 9.0 8.4* MAGNESIUM mg/dL -- -- -- 1.3* Cultures: Microbiology Results Procedure Component Value Units Date/Time Urine culture [[id number]] Resulted: 01/03/24 1547 Specimen: Urine Updated: 01/03/24 1554 PROBLEMS MANAGED BY OTHERS: Microscopic colitis Chronic kidney disease Stage III Cardiac dysrhythmias Coronary artery disease Hypertension Dyslipidemia Peripheral vascular disease Obstructive sleep apnea Peptic ulcer disease History of GI bleed Fracture left hip 2017 Gastroesophageal reflux disease Sensorineural hearing loss History of skin cancer removal Recurrent C diff in December and January, History of left hip fracture surgery 05/2017 History of left total hip arthroplasty 2020 Angiography right lower extremity 01/01/2024 Angioplasty and iliac stent placement 01/01/2024 Bovine patch angioplasty cut down femoral and Iliofemoral right lower extremity 01/01/2024 Femoral artery to popliteal artery below-knee bypass with vein patch/ hi GSV ligation and harvest right lower extremity 01/01/2024 Endarterectomy femoral and ileal femoral 01/01/2024 History of angioplasty iliac iliac shockwave intravascular lithotripsy right- sided 11/18/2023 Arthroscopy with open rotator cuff repair left sided 2011 History of cataract extraction History of cholecystectomy 2009 History of coronary artery bypass grafting x5 in 1998 History of eye surgery History of hernia repair 03/2012 History of sclerotherapy right lower extremity 12/24/2023 Mid urethral sling placement in the past Reported penicillin allergy causing severe rash Reported Levaquin allergy causing sleeplessness and restless legs Your other diagnosis CHIEF COMPLAINT: Elective admission for right lower extremity revascularization for critical limb ischemia with restpain and tissue loss HISTORY OF PRESENT ILLNESS: 88 y.o. Female admitted to the hospital with above-mentioned reported chief complaints as of 01/01/2024. Past medical history significant for recurrent C diff coronary artery disease cardiac dysrhythmia hypertension dyslipidemia peripheral vascular disease peptic ulcer disease obstructive sleep apnea gastroesophageal reflux disease GI bleed among others. Patient was hospitalized, she underwent Angiography right lower extremity/ Angioplasty and iliac stent placement Bovine patch angioplasty cut down femoral and Iliofemoral right lower extremity / Femoral artery to popliteal artery below-knee bypass with vein patch/ hi GSV ligation and harvest right lower extremity/ Endarterectomy femoral and ileal femoral as of 01/01/2024, patient also has historyof of angioplasty iliac iliac shockwave intravascular lithotripsy right-sided 11/18/2023. She spiked a temperature of 101.3 F as of 01/03/2024. Her white count on the was 7.5, on the patient received a dose of dexamethasone and underwent the above-mentioned procedure. The white count went to 13.3 and then 11.9, 14.3 in 15.7. She received a dose of clindamycin as of 01/01/2024. Patient also developed urinary retention, her urinalysis revealed 30 WBCs 1 squamous epithelial cells positive nitrite and moderate leukocyte esterase, as a result urine cultures were ordered and Urology was consulted. She was described to have C diff in the past, she was also reported to have urinary tract infectionin the past she follows and Infectious Disease doctor at [facility] in [facility]. SUBJECTIVE: As above. No new events reported by nursing staff. REVIEW OF SYSTEMS: Otherwise unremarkable except for what is noted above PHYSICAL EXAMINATION: Seen With NS. GENERAL: Well built, well developed. No distress. Nontoxic. EYES: Anicteric sclerae. No conjunctival petechiae. [place] conjunctivae. HEENT: Bilateral pinna without any erythema or swelling. No thrush. Neck supple. No JVD. CHEST: No use of accessory muscles of respiration. Lungs clear to auscultation anteriorly and posteriorly without any added sounds air exchange good. Cardiovascular exam: Normal S1-S2. No gallops, rubs, or murmurs. ABDOMEN: Soft, nontender, nondistended. Bowel sounds positive. RENAL: No renal angle tenderness. No suprapubic tenderness. Extremities: No clubbing, cyanosis. Positive edema. No peripheral stigmata of infective endocarditis at present. SKIN: IV site looks fine. No rash. Skin folds without any intertrigo at present. Coccygeal area: no reported open ulcerations at present.. Neurological: Alert and oriented 3. Musculoskeletal: No large joint effusions of the extremities. Right lower extremity and foot in dressing. I have personally reviewed the past medical history, past surgical history, medications, social history, and family history, and I have updated the database accordingly. PAST MEDICAL HISTORY: Past Medical History: Diagnosis Date Anesthesia complication 2018 HAD HALLUCINATIONS FOR A FEW DAYS AFTER HIP SURGERY Arrhythmia Arthritis C. difficile diarrhea 12/2022 HOSPITALIZED, 01/2023 Cataract Cholecystitis Chronic kidney disease Colitis Coronary artery disease Critical limb ischemia of right lower extremity ([facility]) Dental disease UPPER AND LOWER DENTURE DIAZ (dyspnea on exertion) Fractures 2018 LEFT HIP GERD (gastroesophageal reflux disease) HL (hearing loss) Hyperlipidemia Hypertension Microscopic colitis PAD (peripheral artery disease) ([facility]) Peptic ulceration BLEEDING ULCER ADMITTED 2018 X13 DAYS TATYANA Rash Skin cancer REMOVED Sleep apnea No CPAP Thin skin Urinary tract infection CHRONIC, SEES ID EVERY 3 MONTHS Visual impairment Wound of ankle RIGHT SINCE 07/2023 PAST SURGICAL HISTORY: Past Surgical History: Procedure Laterality Date ABDOMINAL SURGERY ANGIOGRAM EXTREMITY LOWER Right 01/01/2024 Performed by Deuce Kirkland MD at [facility] SPECIAL PROC ANGIOPLASTY ILIAC STENT PLACEMENT Right 01/01/2024 Performed by Deuce Kirkland MD at [facility] PROC ANGIOPLASTY ILIAC-ILIAC SHOCKWAVE INTRAVASCULAR LITHOTRIPSY Right 11/18/2023 Performed by Deuce Kirkland MD at [facility] PROC ARTHROSCOPY SHOULDER W/ OPEN ROTATOR CUFF REPAIR Left 2011 BOVINE PATCH ANGIOPLASTY CUTDOWN FEMORAL Right 01/01/2024 Performed by Deuce Kirkland MD at [facility] SPECIAL PROC BOVINE PATCH ANGIOPLASTY ILEOFEMORAL Right 01/01/2024 Performed by Deuce Kirkland MD at [facility] SPECIAL PROC BYPASS ARTERY FEMORAL BELOW KNEE POPLITEAL W/ VEIN PATCH/ HIGH GSV LIGATION AND HARVEST Right 01/01/2024 Performed by Deuce Kirkland MD at [facility] SPECIAL PROC CARDIAC SURGERY CATARACT EXTRACTION CHOLECYSTECTOMY N/A 2008 CORONARY ARTERY BYPASS GRAFT 1998 x 5 ENDARTERECTOMY FEMORAL AND ILIOFEMORAL ENDARTERECTOMY Right 01/01/2024 Performed by Deuce Kirkland MD at [facility] SPECIAL PROC EYE SURGERY HERNIA REPAIR N/A 03/2012 HIP FRACTURE SURGERY Left 05/2017 HYSTERECTOMY N/A JOINT REPLACEMENT lower ext angiogram Bilateral 01/07/2022 Performed by Taryn Belle MD at [facility] CARDIAC CATH LABS SCLEROTHERAPY LOWER EXTREMITY Right 12/24/2023 Performed by Deuce Kirkland MD at [facility] TOTAL HIP ARTHROPLASTY Left 2019 VASCULAR SURGERY Angiogram ALLERGIES: Allergies Allergen Reactions Nsaids (Non-Steroidal Anti-Inflammatory Drug) Other (See Comments) ELEVATED KIDNEY LABS Penicillins Rash Levofloxacin Other (See Comments) Sleeplessness restless legs Antihistamine 12 Hour Other (See Comments) restlessness Diphenhydramine Hcl Other (See Comments) restlessness Ezetimibe Other (See Comments) unknown Gemfibrozil Other (See Comments) unknown Histamine H2 Inhibitors Other (See Comments) restlessness Phenergan [Promethazine] Anxiety JITTERY Propoxyphene N-Acetaminophen Other (See Comments) JITTERY NOT ALLERGIC TO TYLENOL SOCIAL HISTORY: Social History Socioeconomic History Marital status: Tobacco Use Smoking status: Former Current packs/day: 0.00 Types: Cigarettes Quit date: 12/30/1993 Years since quittin.0 Smokeless tobacco: Never Tobacco comments: QUIT IN 1989 Vaping Use Vaping status: Never Used Substance and Sexual Activity Alcohol use: Yes Alcohol/week: 1.0 standard drink of alcohol Types: 1 Glasses of wine per week Comment: monthly Drug use: Never Sexual activity: Defer Social Drivers of Health Financial Resource Strain: Low Risk (11/18/2023) Overall Financial Resource Strain (CARDIA) Difficulty of Paying Living Expenses: Not hard at all Food Insecurity: No Food Insecurity (01/02/2024) Hunger Screening Food Insecurity - Worry: Never True Food Insecurity - Inability: Never True Transportation Needs: No Transportation Needs (01/02/2024) PRAPARE - Transportation Lack of Transportation (Medical): No Lack of Transportation (Non-Medical): No Interpersonal Safety: Not At Risk (01/02/2024) Humiliation, Afraid, Rape, and Kick questionnaire Fear of Current or Ex-Partner: No Emotionally Abused: No Physically Abused: No Sexually Abused: No Housing Instability: Low Risk (01/02/2024) Housing Instability Housing Instability: No FAMILY HISTORY: Family History Problem Relation Age of Onset Cerebral aneurysm Mother Heart failure Father Cancer Sister Cancer Brother Anesthesia problems Neg Hx Note was updated later by me after physical examination and completion of the assessment. Pertinent labs vital signs imaging studies medications all noted. This note was created with the assistance of a speech-recognition program. Although the intention is to generate a document that actually reflects the content of the visit, no guarantees can be provided that every mistake has been identified and corrected by editing. Signed by, Hilda Smith MD. Answering service: Perfect serve: [phone] * Russ Yarbrough MD - 01/03/2024 12:51 PM ESTAssociated Order(s): IP CONSULT TO UROLOGY Urology Consultation Patient: Delicia Hsu Date of : 1935 CHIEF COMPLAINT: urinary retention HISTORY OF PRESENT ILLNESS: The patient is a 88 y.o. female whom was admitted for right lower extremity ischemia, and underwentright iliofemoral endarterectomy, and fem-pop bypass on 12/31. Urology was consulted as patient didnot void for several hours, and was straight catheterization last night for 400 mL, and indwelling Beckman catheter was recently placed for 400 mL. Denies diarrhea or constipation, minimally ambulatory. Patient is to go to rehab facility upon discharge which is being planned. Patient is seen by [facility], Shaan clifton, history urethral sling in 2009, since that timepatient had had recurrent UTIs, which is managed by infectious disease, which has decreased UTI frequency. Her daughter states she was recently on vancomycin treatment a couple of weeks ago. Patient also being managed chronically for colitis. At baseline patient does not have any incontinence, is able to void on her own, denies gross hematuria. Daughter states she takes in little p.o. intake, therefore voids very infrequently. Patient's old records, notes and chart reviewed and summarized above. Past Medical History: Past Medical History: Diagnosis Date Anesthesia complication 2018 HAD HALLUCINATIONS FOR A FEW DAYS AFTER HIP SURGERY Arrhythmia Arthritis C. difficile diarrhea 12/2022 HOSPITALIZED, 01/2023 Cataract Cholecystitis Chronic kidney disease Colitis Coronary artery disease Critical limb ischemia of right lower extremity ([facility]) Dental disease UPPER AND LOWER DENTURE DIAZ (dyspnea on exertion) Fractures 2018 LEFT HIP GERD (gastroesophageal reflux disease) HL (hearing loss) Hyperlipidemia Hypertension Microscopic colitis PAD (peripheral artery disease) ([facility]) Peptic ulceration BLEEDING ULCER ADMITTED 2018 X13 DAYS TATYANA Rash Skin cancer REMOVED Sleep apnea No CPAP Thin skin Urinary tract infection CHRONIC, SEES ID EVERY 3 MONTHS Visual impairment Wound of ankle RIGHT SINCE 07/2023 Past Surgical History: Past Surgical History: Procedure Laterality Date ABDOMINAL SURGERY ANGIOGRAM EXTREMITY LOWER Right 01/01/2024 Performed by Deuce Kirkland MD at [facility] PROC ANGIOPLASTY ILIAC STENT PLACEMENT Right 01/01/2024 Performed by Deuce Kirkland MD at [facility] PROC ANGIOPLASTY ILIAC-ILIAC SHOCKWAVE INTRAVASCULAR LITHOTRIPSY Right 11/18/2023 Performed by Deuce Kirkland MD at [facility] PROC ARTHROSCOPY SHOULDER W/ OPEN ROTATOR CUFF REPAIR Left 2011 BOVINE PATCH ANGIOPLASTY CUTDOWN FEMORAL Right 01/01/2024 Performed by Deuce Kirkland MD at [facility] SPECIAL PROC BOVINE PATCH ANGIOPLASTY ILEOFEMORAL Right 01/01/2024 Performed by Deuce Kirkland MD at [facility] SPECIAL PROC BYPASS ARTERY FEMORAL BELOW KNEE POPLITEAL W/ VEIN PATCH/ HIGH GSV LIGATION AND HARVEST Right 01/01/2024 Performed by Deuce Kirkland MD at [facility] SPECIAL PROC CARDIAC SURGERY CATARACT EXTRACTION CHOLECYSTECTOMY N/A 2008 CORONARY ARTERY BYPASS GRAFT 1999 x 5 ENDARTERECTOMY FEMORAL AND ILIOFEMORAL ENDARTERECTOMY Right 01/01/2024 Performed by Deuce Kirkland MD at [facility] SPECIAL PROC EYE SURGERY HERNIA REPAIR N/A 03/2012 HIP FRACTURE SURGERY Left 05/2017 HYSTERECTOMY N/A JOINT REPLACEMENT lower ext angiogram Bilateral 01/07/2022 Performed by Taryn Belle MD at [facility] CARDIAC CATH LABS SCLEROTHERAPY LOWER EXTREMITY Right 12/24/2023 Performed by Deuce Kirkland MD at [facility] TOTAL HIP ARTHROPLASTY Left 2019 VASCULAR SURGERY Angiogram Medications: Scheduled Meds: acetic acid, 20 mL, irrigation, BID clopidogreL, 75 mg, oral, Daily gabapentin, 100 mg, oral, TID rivaroxaban, 2.5 mg, oral, BID with meals Continuous Infusions: lactated ringer's, 100 mL/hr, Last Rate: 100 mL/hr (01/03/24 0411) PRN Meds:. acetaminophen calcium gluconate OR calcium gluconate OR calcium gluconate dextrose dextrose 50 % in water (D50W) glucagon (human recombinant) hydrALAZINE HYDROmorphone labetalol magnesium sulfate OR magnesium sulfate oxyCODONE OR oxyCODONE potassium chloride OR potassium chloride potassium chloride in water OR potassium chloride in water sodium phosphate IV OR sodium phosphate IV - central line OR sod phos di, mono-K phos mono Allergies: Nsaids (non-steroidal anti-inflammatory drug), Penicillins, Levofloxacin, Antihistamine 12 hour, Diphenhydramine hcl, Ezetimibe, Gemfibrozil, Histamine h2 inhibitors, Phenergan [promethazine], and Propoxyphene n-acetaminophen Social History: Social History Socioeconomic History Marital status: Spouse name: Not on file Number of children: Not on file Years of education: Not on file Highest education level: Not on file Occupational History Not on file Tobacco Use Smoking status: Former Current packs/day: 0.00 Types: Cigarettes Quit date: 12/30/1993 Years since quittin.0 Smokeless tobacco: Never Tobacco comments: QUIT IN 1989 Vaping Use Vaping status: Never Used Substance and Sexual Activity Alcohol use: Yes Alcohol/week: 1.0 standard drink of alcohol Types: 1 Glasses of wine per week Comment: monthly Drug use: Never Sexual activity: Defer Other Topics Concern Not on file Social History Narrative Not on file Social Drivers of Health Financial Resource Strain: Low Risk (11/18/2023) Overall Financial Resource Strain (CARDIA) Difficulty of Paying Living Expenses: Not hard at all Food Insecurity: No Food Insecurity (01/02/2024) Hunger Screening Food Insecurity - Worry: Never True Food Insecurity - Inability: Never True Transportation Needs: No Transportation Needs (01/02/2024) PRAPARE - Transportation Lack of Transportation (Medical): No Lack of Transportation (Non-Medical): No Physical Activity: Not on file Stress: Not on file Social Connections: Not on file Interpersonal Safety: Not At Risk (01/02/2024) Humiliation, Afraid, Rape, and Kick questionnaire Fear of Current or Ex-Partner: No Emotionally Abused: No Physically Abused: No Sexually Abused: No Housing Instability: Low Risk (01/02/2024) Housing Instability Housing Instability: No Family History: Family History Problem Relation Age of Onset Cerebral aneurysm Mother Heart failure Father Cancer Sister Cancer Brother Anesthesia problems Neg Hx REVIEW OF SYSTEMS: Denies fever chills, tired, as she did not obtain much sleep last night. Denies chest pain or shortness of breath, denies abdominal pain, pain in lower extremities tolerated Review of Systems Physical Exam: This a 88 y.o. female Patient Vitals for the past 24 hrs: BP Temp Temp src Pulse Resp SpO2 Weight 01/03/24 1109 124/43 37.1 C (98.8 F) Oral 68 13 97 % -- 01/03/24 0717 146/52 36.6 C (97.8 F) Oral 79 16 97 % -- 01/03/24 0408 -- -- -- -- -- -- 70.4 kg (155 lb 3.3 oz) 01/03/24 0400 -- -- -- -- -- -- 69 kg (152 lb 1.9 oz) 01/03/24 0330 153/60 36.6 C (97.9 F) Oral 86 20 98 % -- 01/02/24 2344 117/44 36.4 C (97.5 F) Oral 66 13 96 % -- 01/02/242 -- -- -- 68 14 95 % -- 01/02/242012 140/47 36.3 C (97.4 F) Oral 74 20 92 % -- 01/02/24 1604 109/41 36.1 C (97 F) Oral 73 21 93 % -- Constitutional: Patient in no acute distress. Neuro: oriented to person, lethargic Psych: mood and affect normal HEENT negative, vision and hearing grossly intact. Lungs: Respiratory effort is unlabored, on room air Cardiovascular: Normal peripheral pulses, +2/4 bilaterally Abdomen: Soft, non-tender, non-distended with no CVA, flank pain or hepatosplenomegaly. No hernias or masses palpable Lymphatics: No palpable lymphadenopathy. Bladder non-tender and not distended. Beckman with translucent yellow urine output. LABS: Lab Results Component Value Date CREATININE 1.32 (H) 01/03/2024 BUN 31 (H) 01/03/2024 K 5.1 (H) 01/03/2024 CL 104 01/03/2024 CO2 23 01/03/2024 Lab Results Component Value Date WBC 14.3 (H) 01/03/2024 HGB 9.2 (L) 01/03/2024 HCT 27.1 (L) 01/03/2024 MCV 97 01/03/2024 PLT 303 01/03/2024 Urinalysis: 12/31/23 nitrite +, le moderate, wbc 30 Assessment and Plan Impression: 88 yo female with history of urethral sling, possible urinary retention, history of prior frequent urinary tract infections Plan: Check urine culture Will discuss with Dr. Yarbrough. - TIFFANIE OMER 01/03/24 1:04 PM TIFFANIE Omer 01/03/24 1311 I, RUSS YARBROUGH MD, personally performed the face to face evaluation on this patient. I discussed with the patient and confirmed the accuracy and completeness of the aforementioned history prepared by the [place] practice provider, and I personally performed the clinical examination of the patient. I discussed the treatment plan with the patient. Patient to keep her catheter in place until she is ambulatory of a voiding trial . [facility] Consult note* Hilda Smith MD - 01/04/2024 10:17 AM EST Images from the original note were not included. Delicia Hsu [id number] 1935 CONSULTING SERVICE: INFECTIOUS DISEASES REASON FOR CONSULTATION: Suspected urinary tract infection C diff IMPRESSION/ RECOMMENDATIONS: Received steroids 01/01/2024 Fever Leukocytosis, multifactorial Blood cultures Follow serial WBC counts Follow serial temperatures Acute urinary retention Urinalysis concerning for urinary tract infection Urine culture pending Start cefepime Urology following Left lower extremity wound Peripheral vascular disease Status post angiography right lower extremity/ Angioplasty and iliac stent placement Bovine patch angioplasty cut down femoral and Iliofemoral right lower extremity / Femoral artery to popliteal artery below-knee bypass with vein patch/ hi GSV ligation and harvest right lower extremity/ Endarterectomy femoral and ileal femoral 01/01/2024 Wound care to follow Patient can follow-up with her Infectious Disease doctor after discharge Will check stool for C diff if diarrhea starts 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, History of Microscopic colitis Chronic kidney disease stage III Cardiac dysrhythmias Coronary artery disease Hypertension Dyslipidemia Peripheral vascular disease Venous insufficiency lower extremities Obstructive sleep apnea Peptic ulcer disease History of GI bleed Fracture left hip 2017 Gastroesophageal reflux disease Sensorineural hearing loss History of skin cancer removal History of angioplasty iliac iliac shockwave intravascular lithotripsy right- sided 11/18/2023 History of left hip fracture surgery 05/2017 History of left total hip arthroplasty 2019 Continue supportive care Defer the rest of the issues to PMD and other consultants Thank you very much for allowing me to participate in this patient care WORKUP REVIEWED: Blood cultures remain negative to date All pertinent labs reviewed by me as described below Imaging Studies: Fluoroscopy track vascular operative Result Date: 01/01/2024 Please refer to the vascular OP note for a dictation on this exam. Results from last 7 days Lab Units 01/04/24 0506 01/03/24 0459 01/02/24 0200 WBC X10E9/L 15.7* 14.3* 11.9* HEMOGLOBIN g/dL 8.8* 9.2* 8.8* HEMATOCRIT % 25.8* 27.1* 25.6* PLATELETS X10E9/L 224 303 285 Results from last 7 days Lab Units 01/04/24 0506 01/03/24 1345 01/03/24 0459 01/02/24 0200 POTASSIUM mmol/L 5.4* 5.0 5.1* 4.7 CHLORIDE mmol/L 103 -- 104 106 CO2 mmol/L 23 -- 23 21* BUN mg/dL 21 -- 31* 22 CREATININE mg/dL 1.11* -- 1.32* 0.96 EGFR (CKD-EPI)NON-RACE DEPENDENT ml/min/1.73sq.m 48* -- 39* 57* CALCIUM mg/dL 8.6 -- 9.0 8.4* MAGNESIUM mg/dL -- -- -- 1.3* Cultures: Microbiology Results Procedure Component Value Units Date/Time Urine culture [[id number]] Resulted: 01/03/24 1547 Specimen: Urine Updated: 01/03/24 1554 PROBLEMS MANAGED BY OTHERS: Microscopic colitis Chronic kidney disease Stage III Cardiac dysrhythmias Coronary artery disease Hypertension Dyslipidemia Peripheral vascular disease Obstructive sleep apnea Peptic ulcer disease History of GI bleed Fracture left hip 2017 Gastroesophageal reflux disease Sensorineural hearing loss History of skin cancer removal Recurrent C diff in December and January, History of left hip fracture surgery 05/2017 History of left total hip arthroplasty 2019 Angiography right lower extremity 01/01/2024 Angioplasty and iliac stent placement 01/01/2024 Bovine patch angioplasty cut down femoral and Iliofemoral right lower extremity 01/01/2024 Femoral artery to popliteal artery below-knee bypass with vein patch/ hi GSV ligation and harvest right lower extremity 01/01/2024 Endarterectomy femoral and ileal femoral 01/01/2024 History of angioplasty iliac iliac shockwave intravascular lithotripsy right- sided 11/18/2023 Arthroscopy with open rotator cuff repair left sided 2011 History of cataract extraction History of cholecystectomy 2009 History of coronary artery bypass grafting x5 in 1998 History of eye surgery History of hernia repair 03/2012 History of sclerotherapy right lower extremity 12/24/2023 Mid urethral sling placement in the past Reported penicillin allergy causing severe rash Reported Levaquin allergy causing sleeplessness and restless legs Your other diagnosis CHIEF COMPLAINT: Elective admission for right lower extremity revascularization for critical limb ischemia with restpain and tissue loss HISTORY OF PRESENT ILLNESS: 88 y.o. Female admitted to the hospital with above-mentioned reported chief complaints as of 01/01/2024. Past medical history significant for recurrent C diff coronary artery disease cardiac dysrhythmia hypertension dyslipidemia peripheral vascular disease peptic ulcer disease obstructive sleep apnea gastroesophageal reflux disease GI bleed among others. Patient was hospitalized, she underwent Angiography right lower extremity/ Angioplasty and iliac stent placement Bovine patch angioplasty cut down femoral and Iliofemoral right lower extremity / Femoral artery to popliteal artery below-knee bypass with vein patch/ hi GSV ligation and harvest right lower extremity/ Endarterectomy femoral and ileal femoral as of 01/01/2024, patient also has historyof of angioplasty iliac iliac shockwave intravascular lithotripsy right-sided 11/18/2023. She spiked a temperature of 101.3 F as of 01/03/2024. Her white count on the was 7.5, on the patient received a dose of dexamethasone and underwent the above-mentioned procedure. The white count went to 13.3 and then 11.9, 14.3 in 15.7. She received a dose of clindamycin as of 01/01/2024. Patient also developed urinary retention, her urinalysis revealed 30 WBCs 1 squamous epithelial cells positive nitrite and moderate leukocyte esterase, as a result urine cultures were ordered and Urology was consulted. She was described to have C diff in the past, she was also reported to have urinary tract infectionin the past she follows and Infectious Disease doctor at [facility] in [facility]. SUBJECTIVE: As above. No new events reported by nursing staff. REVIEW OF SYSTEMS: Otherwise unremarkable except for what is noted above PHYSICAL EXAMINATION: Seen With NS. GENERAL: Well built, well developed. No distress. Nontoxic. EYES: Anicteric sclerae. No conjunctival petechiae. [place] conjunctivae. HEENT: Bilateral pinna without any erythema or swelling. No thrush. Neck supple. No JVD. CHEST: No use of accessory muscles of respiration. Lungs clear to auscultation anteriorly and posteriorly without any added sounds air exchange good. Cardiovascular exam: Normal S1-S2. No gallops, rubs, or murmurs. ABDOMEN: Soft, nontender, nondistended. Bowel sounds positive. RENAL: No renal angle tenderness. No suprapubic tenderness. Extremities: No clubbing, cyanosis. Positive edema. No peripheral stigmata of infective endocarditis at present. SKIN: IV site looks fine. No rash. Skin folds without any intertrigo at present. Coccygeal area: no reported open ulcerations at present.. Neurological: Alert and oriented 3. Musculoskeletal: No large joint effusions of the extremities. Right lower extremity and foot in dressing. I have personally reviewed the past medical history, past surgical history, medications, social history, and family history, and I have updated the database accordingly. PAST MEDICAL HISTORY: Past Medical History: Diagnosis Date Anesthesia complication 2018 HAD HALLUCINATIONS FOR A FEW DAYS AFTER HIP SURGERY Arrhythmia Arthritis C. difficile diarrhea 12/2022 HOSPITALIZED, 01/2023 Cataract Cholecystitis Chronic kidney disease Colitis Coronary artery disease Critical limb ischemia of right lower extremity ([facility]) Dental disease UPPER AND LOWER DENTURE DIAZ (dyspnea on exertion) Fractures 2018 LEFT HIP GERD (gastroesophageal reflux disease) HL (hearing loss) Hyperlipidemia Hypertension Microscopic colitis PAD (peripheral artery disease) ([facility]) Peptic ulceration BLEEDING ULCER ADMITTED 2018 X13 DAYS [place] Rash Skin cancer REMOVED Sleep apnea No CPAP Thin skin Urinary tract infection CHRONIC, SEES ID EVERY 3 MONTHS Visual impairment Wound of ankle RIGHT SINCE 07/2023 PAST SURGICAL HISTORY: Past Surgical History: Procedure Laterality Date ABDOMINAL SURGERY ANGIOGRAM EXTREMITY LOWER Right 01/01/2024 Performed by Deuce Kirkland MD at [facility] PROC ANGIOPLASTY ILIAC STENT PLACEMENT Right 01/01/2024 Performed by Deuce Kirkland MD at [facility] PROC ANGIOPLASTY ILIAC-ILIAC SHOCKWAVE INTRAVASCULAR LITHOTRIPSY Right 11/18/2023 Performed by Deuce Kirkland MD at [facility] PROC ARTHROSCOPY SHOULDER W/ OPEN ROTATOR CUFF REPAIR Left 2011 BOVINE PATCH ANGIOPLASTY CUTDOWN FEMORAL Right 01/01/2024 Performed by Deuce Kirkland MD at [facility] SPECIAL PROC BOVINE PATCH ANGIOPLASTY ILEOFEMORAL Right 01/01/2024 Performed by Deuce Kirkland MD at [facility] SPECIAL PROC BYPASS ARTERY FEMORAL BELOW KNEE POPLITEAL W/ VEIN PATCH/ HIGH GSV LIGATION AND HARVEST Right 01/01/2024 Performed by Deuce Kirkland MD at [facility] SPECIAL PROC CARDIAC SURGERY CATARACT EXTRACTION CHOLECYSTECTOMY N/A 2008 CORONARY ARTERY BYPASS GRAFT 1998 x 5 ENDARTERECTOMY FEMORAL AND ILIOFEMORAL ENDARTERECTOMY Right 01/01/2024 Performed by Deuce Kirkland MD at [facility] PROC EYE SURGERY HERNIA REPAIR N/A 03/2012 HIP FRACTURE SURGERY Left 05/2017 HYSTERECTOMY N/A JOINT REPLACEMENT lower ext angiogram Bilateral 01/07/2022 Performed by Taryn Belle MD at [facility] CARDIAC CATH LABS SCLEROTHERAPY LOWER EXTREMITY Right 12/24/2023 Performed by Deuce Kirkland MD at [facility] TOTAL HIP ARTHROPLASTY Left 2019 VASCULAR SURGERY Angiogram ALLERGIES: Allergies Allergen Reactions Nsaids (Non-Steroidal Anti-Inflammatory Drug) Other (See Comments) ELEVATED KIDNEY LABS Penicillins Rash Levofloxacin Other (See Comments) Sleeplessness restless legs Antihistamine 12 Hour Other (See Comments) restlessness Diphenhydramine Hcl Other (See Comments) restlessness Ezetimibe Other (See Comments) unknown Gemfibrozil Other (See Comments) unknown Histamine H2 Inhibitors Other (See Comments) restlessness Phenergan [Promethazine] Anxiety JITTERY Propoxyphene N-Acetaminophen Other (See Comments) JITTERY NOT ALLERGIC TO TYLENOL SOCIAL HISTORY: Social History Socioeconomic History Marital status: Tobacco Use Smoking status: Former Current packs/day: 0.00 Types: Cigarettes Quit date: 12/30/1993 Years since quittin.0 Smokeless tobacco: Never Tobacco comments: QUIT IN 1989 Vaping Use Vaping status: Never Used Substance and Sexual Activity Alcohol use: Yes Alcohol/week: 1.0 standard drink of alcohol Types: 1 Glasses of wine per week Comment: monthly Drug use: Never Sexual activity: Defer Social Drivers of Health Financial Resource Strain: Low Risk (11/18/2023) Overall Financial Resource Strain (CARDI) Difficulty of Paying Living Expenses: Not hard at all Food Insecurity: No Food Insecurity (01/02/2024) Hunger Screening Food Insecurity - Worry: Never True Food Insecurity - Inability: Never True Transportation Needs: No Transportation Needs (01/02/2024) PRAPARE - Transportation Lack of Transportation (Medical): No Lack of Transportation (Non-Medical): No Interpersonal Safety: Not At Risk (01/02/2024) Humiliation, Afraid, Rape, and Kick questionnaire Fear of Current or Ex-Partner: No Emotionally Abused: No Physically Abused: No Sexually Abused: No Housing Instability: Low Risk (01/02/2024) Housing Instability Housing Instability: No FAMILY HISTORY: Family History Problem Relation Age of Onset Cerebral aneurysm Mother Heart failure Father Cancer Sister Cancer Brother Anesthesia problems Neg Hx Note was updated later by me after physical examination and completion of the assessment. Pertinent labs vital signs imaging studies medications all noted. This note was created with the assistance of a speech-recognition program. Although the intention is to generate a document that actually reflects the content of the visit, no guarantees can be provided that every mistake has been identified and corrected by editing. Signed by, Hilda Smith MD. Answering service: Perfect serve: [phone] [email or web address] [id number] Plan of care note* Plan of Care - Kodak Clark RN - 01/04/2024 12:13 AM EST Problem: Pain Goal: Patient goal is pain score less than 4, able to rest, and participant in treatment plan as appropriate Description: INTERVENTIONS: 1. Encourage patient or legal national account representative to report early pain and ask for pain medicine when needed 2. Assess pain using appropriate pain scale and include the scale used when documenting 3. Administer analgesics based on type and severity of pain and evaluate response within appropriate time frame 4. Implement non-pharmacological measures as appropriate and evaluate response 5. Consider cultural and social influences on pain and pain management 6. Notify LIP if interventions ineffective or patient reports new pain 7. Monitor vital signs including pulse ox, end-tidal CO2 based on pain intervention 8. Reassess pain per policy 9. Teach patient or legal national account representative interventions for comforting Outcome: Progressing Note: Evaluation of progress towards goal: Pt states pain is controlled. Will continue to assess. Problem: Safety Goal: Patient will be injury free during hospitalization Description: INTERVENTIONS: 1. Assess patient's risk for falls and implement fall prevention plan of care per policy 2. Provide and maintain a safe environment 3. Proper use of double Identifiers 4. Medication administration using the 5 rights 5. Hand hygiene 6. Specimens are labeled at the bedside 7. Instruct patient/ patient national account representative about use of safety devices 8. Include patient/ patient national account representative in decisions related to safety Outcome: Progressing Note: Evaluation of progress towards goal: Pt free from falls. Safety maintained. Problem: Infection Goal: Absence of infection during hospitalization Description: Interventions: 1. Assess and monitor for signs and symptoms of infection 2. Monitor lab/diagnostic results 3. Monitor all insertion sites i.e., indwelling lines, tubes and drains 4. Monitor endotracheal (as able) and nasal secretions for changes in amount and color 5. Administer medications as ordered 6. Instruct and encourage patient and family to use good hand hygiene technique 7. Identify and instruct patient/patient national account representative in use of appropriate isolation precautionsfor identified infection/symptoms 8. Provide and discuss with patient/patient national account representative on educational MDRO sheet 9. Encourage and monitor nutritional status daily and consult supervisor loading if indicated 10. Implement neutropenic guidelines as needed 11. Review exposure to history of communicable disease and recent travel history on admission 12. Encourage annual influenza vaccine 13. Encourage pneumonia vaccine Outcome: Progressing Note: Evaluation of progress towards goal: Pt free from s/s of infection. Will continue to monitor. Problem: Knowledge Deficit Goal: Patient/patient national account representative demonstrates understanding of disease process, treatment plan,medications, and discharge instructions Description: INTERVENTIONS 1. Complete learning assessment and assess knowledge base 2. Provide teaching at level of understanding 3. Provide teaching via preferred learning method(s) Outcome: Progressing Note: Plan of care reviewed with patient. Questions answered. Will continue to assess. [facility]11-25-2024 Progress note* Discharge Planning Note - Kelly Badillo RN - 01/03/2024 2:43 PM EST Images from the original note were not included. DISCHARGE PLANNING NOTE Chart reviewed, patient unable to stay awake for interaction. Daughter at bedside and discussed discharge planning with her and PT recs for SNF placement. Daughter states that patient is in the independent living portion of [facility] [place] and lives with her son. She states that patient is in agreement with placement and they would like a referrals to [facility] in there residential, tasked referral to be made and they can accept. Daughter is willing to transport her there if patient ismore awake tomorrow otherwise she will need transportation arranged. The plan is for the patient todischarge with [facility]. Services Requested: Services Requested Patient expects to be discharged to:: SNF Discharge Disposition: SNF Patient choice offered: Yes List Provided: Yes Initial DC Assessment Completed: Yes Patient Goals: Patient/Caregiver Goals Patient/Caregiver Goals: Snf Care Skilled [place] Care: Skilled Care (Short Term) Goals: Goals Daughter stated: Discharge to SNF and then back to independent living with resumption of home care,. (pt-stated) Evaluation of progress towards goal: [facility]11-25-2024 Progress note* Discharge Planning Note - Sabrina Garduno - 01/03/2024 1:41 PM EST DISCHARGE PLANNING NOTE Referral to [facility] (P# ; F# ) [facility]11-25-2024 Consult note* Russ Yarbrough MD - 01/03/2024 12:51 PM ESTAssociated Order(s): IP CONSULT TO UROLOGY Urology Consultation Patient: Delicia Hsu Date of : 1935 CHIEF COMPLAINT: urinary retention HISTORY OF PRESENT ILLNESS: The patient is a 88 y.o. female whom was admitted for right lower extremity ischemia, and underwentright iliofemoral endarterectomy, and fem-pop bypass on 12/31. Urology was consulted as patient didnot void for several hours, and was straight catheterization last night for 400 mL, and indwelling Beckman catheter was recently placed for 400 mL. Denies diarrhea or constipation, minimally ambulatory. Patient is to go to rehab facility upon discharge which is being planned. Patient is seen by [facility], Shaan clifton, history urethral sling in 2009, since that timepatient had had recurrent UTIs, which is managed by infectious disease, which has decreased UTI frequency. Her daughter states she was recently on vancomycin treatment a couple of weeks ago. Patient also being managed chronically for colitis. At baseline patient does not have any incontinence, is able to void on her own, denies gross hematuria. Daughter states she takes in little p.o. intake, therefore voids very infrequently. Patient's old records, notes and chart reviewed and summarized above. Past Medical History: Past Medical History: Diagnosis Date Anesthesia complication 2018 HAD HALLUCINATIONS FOR A FEW DAYS AFTER HIP SURGERY Arrhythmia Arthritis C. difficile diarrhea 12/2022 HOSPITALIZED, 01/2023 Cataract Cholecystitis Chronic kidney disease Colitis Coronary artery disease Critical limb ischemia of right lower extremity ([facility]) Dental disease UPPER AND LOWER DENTURE DIAZ (dyspnea on exertion) Fractures 2018 LEFT HIP GERD (gastroesophageal reflux disease) HL (hearing loss) Hyperlipidemia Hypertension Microscopic colitis PAD (peripheral artery disease) ([facility]) Peptic ulceration BLEEDING ULCER ADMITTED 2018 X13 DAYS [place] Rash Skin cancer REMOVED Sleep apnea No CPAP Thin skin Urinary tract infection CHRONIC, SEES ID EVERY 3 MONTHS Visual impairment Wound of ankle RIGHT SINCE 07/2023 Past Surgical History: Past Surgical History: Procedure Laterality Date ABDOMINAL SURGERY ANGIOGRAM EXTREMITY LOWER Right 01/01/2024 Performed by Deuce Kirkland MD at [facility] PROC ANGIOPLASTY ILIAC STENT PLACEMENT Right 01/01/2024 Performed by Deuce Kirkland MD at [facility] PROC ANGIOPLASTY ILIAC-ILIAC SHOCKWAVE INTRAVASCULAR LITHOTRIPSY Right 11/18/2023 Performed by Deuce Kirkland MD at [facility] PROC ARTHROSCOPY SHOULDER W/ OPEN ROTATOR CUFF REPAIR Left 2011 BOVINE PATCH ANGIOPLASTY CUTDOWN FEMORAL Right 01/01/2024 Performed by Deuce Kirkland MD at [facility] PROC BOVINE PATCH ANGIOPLASTY ILEOFEMORAL Right 01/01/2024 Performed by Deuce Kirkland MD at [facility] SPECIAL PROC BYPASS ARTERY FEMORAL BELOW KNEE POPLITEAL W/ VEIN PATCH/ HIGH GSV LIGATION AND HARVEST Right 01/01/2024 Performed by Deuce Kirkland MD at [facility] PROC CARDIAC SURGERY CATARACT EXTRACTION CHOLECYSTECTOMY N/A 2008 CORONARY ARTERY BYPASS GRAFT 1999 x 5 ENDARTERECTOMY FEMORAL AND ILIOFEMORAL ENDARTERECTOMY Right 01/01/2024 Performed by Deuce Kirkland MD at [facility] PROC EYE SURGERY HERNIA REPAIR N/A 03/2012 HIP FRACTURE SURGERY Left 05/2017 HYSTERECTOMY N/A JOINT REPLACEMENT lower ext angiogram Bilateral 01/07/2022 Performed by Taryn Belle MD at [facility] CARDIAC CATH LABS SCLEROTHERAPY LOWER EXTREMITY Right 12/24/2023 Performed by Deuce Kirkland MD at [facility] TOTAL HIP ARTHROPLASTY Left 2019 VASCULAR SURGERY Angiogram Medications: Scheduled Meds: acetic acid, 20 mL, irrigation, BID clopidogreL, 75 mg, oral, Daily gabapentin, 100 mg, oral, TID rivaroxaban, 2.5 mg, oral, BID with meals Continuous Infusions: lactated ringer's, 100 mL/hr, Last Rate: 100 mL/hr (01/03/24 0411) PRN Meds:. acetaminophen calcium gluconate OR calcium gluconate OR calcium gluconate dextrose dextrose 50 % in water (D50W) glucagon (human recombinant) hydrALAZINE HYDROmorphone labetalol magnesium sulfate OR magnesium sulfate oxyCODONE OR oxyCODONE potassium chloride OR potassium chloride potassium chloride in water OR potassium chloride in water sodium phosphate IV OR sodium phosphate IV - central line OR sod phos di, mono-K phos mono Allergies: Nsaids (non-steroidal anti-inflammatory drug), Penicillins, Levofloxacin, Antihistamine 12 hour, Diphenhydramine hcl, Ezetimibe, Gemfibrozil, Histamine h2 inhibitors, Phenergan [promethazine], and Propoxyphene n-acetaminophen Social History: Social History Socioeconomic History Marital status: Spouse name: Not on file Number of children: Not on file Years of education: Not on file Highest education level: Not on file Occupational History Not on file Tobacco Use Smoking status: Former Current packs/day: 0.00 Types: Cigarettes Quit date: 12/30/1993 Years since quittin.0 Smokeless tobacco: Never Tobacco comments: QUIT IN 1989 Vaping Use Vaping status: Never Used Substance and Sexual Activity Alcohol use: Yes Alcohol/week: 1.0 standard drink of alcohol Types: 1 Glasses of wine per week Comment: monthly Drug use: Never Sexual activity: Defer Other Topics Concern Not on file Social History Narrative Not on file Social Drivers of Health Financial Resource Strain: Low Risk (11/18/2023) Overall Financial Resource Strain (CARDIA) Difficulty of Paying Living Expenses: Not hard at all Food Insecurity: No Food Insecurity (01/02/2024) Hunger Screening Food Insecurity - Worry: Never True Food Insecurity - Inability: Never True Transportation Needs: No Transportation Needs (01/02/2024) PRAPARE - Transportation Lack of Transportation (Medical): No Lack of Transportation (Non-Medical): No Physical Activity: Not on file Stress: Not on file Social Connections: Not on file Interpersonal Safety: Not At Risk (01/02/2024) Humiliation, Afraid, Rape, and Kick questionnaire Fear of Current or Ex-Partner: No Emotionally Abused: No Physically Abused: No Sexually Abused: No Housing Instability: Low Risk (01/02/2024) Housing Instability Housing Instability: No Family History: Family History Problem Relation Age of Onset Cerebral aneurysm Mother Heart failure Father Cancer Sister Cancer Brother Anesthesia problems Neg Hx REVIEW OF SYSTEMS: Denies fever chills, tired, as she did not obtain much sleep last night. Denies chest pain or shortness of breath, denies abdominal pain, pain in lower extremities tolerated Review of Systems Physical Exam: This a 88 y.o. female Patient Vitals for the past 24 hrs: BP Temp Temp src Pulse Resp SpO2 Weight 01/03/24 1109 124/43 37.1 C (98.8 F) Oral 68 13 97 % -- 01/03/24 0717 146/52 36.6 C (97.8 F) Oral 79 16 97 % -- 01/03/24 0408 -- -- -- -- -- -- 70.4 kg (155 lb 3.3 oz) 01/03/24 0400 -- -- -- -- -- -- 69 kg (152 lb 1.9 oz) 01/03/24 0330 153/60 36.6 C (97.9 F) Oral 86 20 98 % -- 01/02/24 2344 117/44 36.4 C (97.5 F) Oral 66 13 96 % -- 01/02/242321 -- -- -- 68 14 95 % -- 01/02/242012 140/47 36.3 C (97.4 F) Oral 74 20 92 % -- 01/02/24 1604 109/41 36.1 C (97 F) Oral 73 21 93 % -- Constitutional: Patient in no acute distress. Neuro: oriented to person, lethargic Psych: mood and affect normal HEENT negative, vision and hearing grossly intact. Lungs: Respiratory effort is unlabored, on room air Cardiovascular: Normal peripheral pulses, +2/4 bilaterally Abdomen: Soft, non-tender, non-distended with no CVA, flank pain or hepatosplenomegaly. No hernias or masses palpable Lymphatics: No palpable lymphadenopathy. Bladder non-tender and not distended. Beckman with translucent yellow urine output. LABS: Lab Results Component Value Date CREATININE 1.32 (H) 01/03/2024 BUN 31 (H) 01/03/2024 K 5.1 (H) 01/03/2024 CL 104 01/03/2024 CO2 23 01/03/2024 Lab Results Component Value Date WBC 14.3 (H) 01/03/2024 HGB 9.2 (L) 01/03/2024 HCT 27.1 (L) 01/03/2024 MCV 97 01/03/2024 PLT 303 01/03/2024 Urinalysis: 12/31/23 nitrite +, le moderate, wbc 30 Assessment and Plan Impression: 88 yo female with history of urethral sling, possible urinary retention, history of prior frequent urinary tract infections Plan: Check urine culture Will discuss with Dr. Yarbrough. - TIFFANIE OMER 01/03/24 1:04 PM TIFFANIE Omer 01/03/24 1311 I, RUSS YARBROUGH MD, personally performed the face to face evaluation on this patient. I discussed with the patient and confirmed the accuracy and completeness of the aforementioned history prepared by the [place] practice provider, and I personally performed the clinical examination of the patient. I discussed the treatment plan with the patient. Patient to keep her catheter in place until she is ambulatory of a voiding trial . [facility] Work Phone: [phone] Progress note* Discharge Planning Note - IVAN Coles - 01/03/2024 12:06 PM EST DISCHARGE PLANNING NOTE [place] attempted to meet with pt to complete assessment and discuss post acute care needs. Staff currently providing care to pt at bedside. Will follow-up again later. - IVAN Coles 01/03/24 12:09 PM [facility]11-25-2024 Progress note* PT/OT/OPTICAL STORE MANAGER - CHRISTOS Yao - 01/03/2024 8:44 AM EST Occupational Therapy OT Type of Visit: Medical deferral (pt with open wounds as she was unable to tolerate dressing paindue to pain. will check back as able.) [facility]11-25-2024 Plan of care note* Plan of Care - Bhumika Neely RN - 01/03/2024 8:24 AM EST Problem: Pain Goal: Patient goal is pain score less than 4, able to rest, and participant in treatment plan as appropriate Description: INTERVENTIONS: 1. Encourage patient or legal national account representative to report early pain and ask for pain medicine when needed 2. Assess pain using appropriate pain scale and include the scale used when documenting 3. Administer analgesics based on type and severity of pain and evaluate response within appropriate time frame 4. Implement non-pharmacological measures as appropriate and evaluate response 5. Consider cultural and social influences on pain and pain management 6. Notify LIP if interventions ineffective or patient reports new pain 7. Monitor vital signs including pulse ox, end-tidal CO2 based on pain intervention 8. Reassess pain per policy 9. Teach patient or legal national account representative interventions for comforting Outcome: Progressing Note: Evaluation of progress towards goal: PRN pain medications available for comfort and given as scheduled. Pain reassessed per policy. Problem: Safety Goal: Patient will be injury free during hospitalization Description: INTERVENTIONS: 1. Assess patient's risk for falls and implement fall prevention plan of care per policy 2. Provide and maintain a safe environment 3. Proper use of double Identifiers 4. Medication administration using the 5 rights 5. Hand hygiene 6. Specimens are labeled at the bedside 7. Instruct patient/ patient national account representative about use of safety devices 8. Include patient/ patient national account representative in decisions related to safety Outcome: Progressing Note: Evaluation of progress towards goal: Assessed patient's risk for falls and implemented fall prevention plan of care per policy. Provided and maintained a safe environment. Pt remains free from falls and injury during this stay. Problem: Infection Goal: Absence of infection during hospitalization Description: Interventions: 1. Assess and monitor for signs and symptoms of infection 2. Monitor lab/diagnostic results 3. Monitor all insertion sites i.e., indwelling lines, tubes and drains 4. Monitor endotracheal (as able) and nasal secretions for changes in amount and color 5. Administer medications as ordered 6. Instruct and encourage patient and family to use good hand hygiene technique 7. Identify and instruct patient/patient national account representative in use of appropriate isolation precautionsfor identified infection/symptoms 8. Provide and discuss with patient/patient national account representative on educational MDRO sheet 9. Encourage and monitor nutritional status daily and consult supervisor loading if indicated 10. Implement neutropenic guidelines as needed 11. Review exposure to history of communicable disease and recent travel history on admission 12. Encourage annual influenza vaccine 13. Encourage pneumonia vaccine Outcome: Progressing Note: Evaluation of progress towards goal: Patient remains afebrile, no new s/s of infection at this time. Hand hygiene continued per protocol. Will continue to monitor. [facility] [id number] Plan of care note* Plan of Care - Kodak Clark RN - 01/03/2024 1:21 AM EST Problem: Pain Goal: Patient goal is pain score less than 4, able to rest, and participant in treatment plan as appropriate Description: INTERVENTIONS: 1. Encourage patient or legal national account representative to report early pain and ask for pain medicine when needed 2. Assess pain using appropriate pain scale and include the scale used when documenting 3. Administer analgesics based on type and severity of pain and evaluate response within appropriate time frame 4. Implement non-pharmacological measures as appropriate and evaluate response 5. Consider cultural and social influences on pain and pain management 6. Notify LIP if interventions ineffective or patient reports new pain 7. Monitor vital signs including pulse ox, end-tidal CO2 based on pain intervention 8. Reassess pain per policy 9. Teach patient or legal national account representative interventions for comforting Outcome: Progressing Note: Evaluation of progress towards goal: Pt states pain is controlled. Will continue to assess. Problem: Safety Goal: Patient will be injury free during hospitalization Description: INTERVENTIONS: 1. Assess patient's risk for falls and implement fall prevention plan of care per policy 2. Provide and maintain a safe environment 3. Proper use of double Identifiers 4. Medication administration using the 5 rights 5. Hand hygiene 6. Specimens are labeled at the bedside 7. Instruct patient/ patient national account representative about use of safety devices 8. Include patient/ patient national account representative in decisions related to safety Outcome: Progressing Note: Evaluation of progress towards goal: Pt free from falls. Safety maintained. Problem: Infection Goal: Absence of infection during hospitalization Description: Interventions: 1. Assess and monitor for signs and symptoms of infection 2. Monitor lab/diagnostic results 3. Monitor all insertion sites i.e., indwelling lines, tubes and drains 4. Monitor endotracheal (as able) and nasal secretions for changes in amount and color 5. Administer medications as ordered 6. Instruct and encourage patient and family to use good hand hygiene technique 7. Identify and instruct patient/patient national account representative in use of appropriate isolation precautionsfor identified infection/symptoms 8. Provide and discuss with patient/patient national account representative on educational MDRO sheet 9. Encourage and monitor nutritional status daily and consult supervisor loading if indicated 10. Implement neutropenic guidelines as needed 11. Review exposure to history of communicable disease and recent travel history on admission 12. Encourage annual influenza vaccine 13. Encourage pneumonia vaccine Outcome: Progressing Note: Evaluation of progress towards goal: Pt free from s/s of infection. Will continue to monitor. Problem: Knowledge Deficit Goal: Patient/patient national account representative demonstrates understanding of disease process, treatment plan,medications, and discharge instructions Description: INTERVENTIONS 1. Complete learning assessment and assess knowledge base 2. Provide teaching at level of understanding 3. Provide teaching via preferred learning method(s) Outcome: Progressing Note: Plan of care reviewed with patient. Questions answered. Will continue to assess. [employer] [id number] Progress note* PT/OT/OPTICAL STORE MANAGER - Leif Raymond, PT - 01/02/2024 4:56 PM EST Physical Therapy Evaluation Discharge Recommendations PT Recommendations: Snf Facility SNF/ECF Comments: At this time pt is not safe to return home due to current impairments noted in evaluation. 6 Clicks: Basic Mobility Turning from your back to your side while in a flat bed without using bed rails?: A little Moving from lying on your back to sitting on side of flat bed without using bed rails?: A lot Moving to and from bed to a chair (including w/c)?: A lot Standing up from a chair using your arms (e.g. w/c or bedside chair)?: A lot To walk in hospital room?: A little Climbing 3-5 steps with a railing?: Total Scoring 6 Clicks: Basic Mobility Raw Score: 13 [facility] G Code Modifier: CK Therapy Plan Need for skilled Physical Therapy to address deficits in functional mobility due to a status decline resulting from planned surgery. On 12/31 pt underwent R ENDARTERECTOMY FEMORAL AND ILIOFEMORAL ENDARTERECTOMY, ANGIOPLASTY ILIAC STENT PLACEMENT, BYPASS ARTERY FEMORAL BELOW KNEE POPLITEAL W/ VEIN PATCH/ HIGH GSV LIGATION AND HARVEST, and BOVINE PATCH ANGIOPLASTY ILEOFEMORAL Past Medical History: Diagnosis Date Anesthesia complication 2018 HAD HALLUCINATIONS FOR A FEW DAYS AFTER HIP SURGERY Arrhythmia Arthritis C. difficile diarrhea 12/2022 HOSPITALIZED, 01/2023 Cataract Cholecystitis Chronic kidney disease Colitis Coronary artery disease Critical limb ischemia of right lower extremity ([facility]) Dental disease UPPER AND LOWER DENTURE DIAZ (dyspnea on exertion) Fractures 2018 LEFT HIP GERD (gastroesophageal reflux disease) HL (hearing loss) Hyperlipidemia Hypertension Microscopic colitis PAD (peripheral artery disease) ([facility]) Peptic ulceration BLEEDING ULCER ADMITTED 2018 X13 DAYS TATYANA Rash Skin cancer REMOVED Sleep apnea No CPAP Thin skin Urinary tract infection CHRONIC, SEES ID EVERY 3 MONTHS Visual impairment Wound of ankle RIGHT SINCE 07/2023 Past Surgical History: Procedure Laterality Date ABDOMINAL SURGERY ANGIOPLASTY ILIAC-ILIAC SHOCKWAVE INTRAVASCULAR LITHOTRIPSY Right 11/18/2023 Performed by Deuce Kirkland MD at [facility] SPECIAL PROC ARTHROSCOPY SHOULDER W/ OPEN ROTATOR CUFF REPAIR Left 2011 CARDIAC SURGERY CATARACT EXTRACTION CHOLECYSTECTOMY N/A 2008 CORONARY ARTERY BYPASS GRAFT 1998 x 5 EYE SURGERY HERNIA REPAIR N/A 03/2012 HIP FRACTURE SURGERY Left 05/2017 HYSTERECTOMY N/A JOINT REPLACEMENT lower ext angiogram Bilateral 01/07/2022 Performed by Taryn Belle MD at [facility] CARDIAC CATH LABS SCLEROTHERAPY LOWER EXTREMITY Right 12/24/2023 Performed by Deuce Kirkland MD at [facility] TOTAL HIP ARTHROPLASTY Left 2019 VASCULAR SURGERY Angiogram PT Treatment/Interventions: ADL retraining, Functional transfer training, UE strengthening/ROM, LE strengthening/ROM, Endurance training, Balance, Equipment eval/education, Stair training, Bed mobility, Gait training, Compensatory technique education, Coordination activities, Neuromuscular reeducation PT Frequency: 5-6days/week PT Duration: LOS Patient Response to Treatment: Tolerated evaluation without adverse reaction Assessment Patient Assessment Therapy Problem List: Decreased ADL status, Decreased balance, Decreased endurance, Decreased high-level ADLs, Decreased mobility, Decreased LE ROM, Decreased LE strength, Decreased sensation, Decreased cognition Patient Response to Treatment: Tolerated evaluation without adverse reaction Mood/Affect: Appropriate for circumstances Rehab Prognosis: Good, With continued PT status post acute discharge Visit RN Communication: Yes Medical Record Reviewed: Yes PT Type of Visit: Evaluation Precautions Activity: early mobility pass; okay to see per RN Equipment: RW: gait belt; IV pole Weight Bearing Status: no formal orders Telemetry/Bioinformatics Engineer: Yes Oxygen Used: room air Other: high fall risk, s/p illiofemoral endarectomy and angio plasty Pain Assessment Pain Assessment: 0-10 (never formally rates but appears to be in intense pain on RLE and RN made aware.) Response to Interventions: Pain unchanged (pain remained constent during evalution. cramping pain on RLE) Home Living Type of Home: Other (Comment) (IND living) Home Layout: One level Stairs to Enter: none Bathroom Shower/Tub: Walk-in shower Bathroom Toilet: Raised Bathroom Equipment: Grab bars in shower, Shower chair, Hand-held shower, Grab bars around toilet Bathroom Accessibility: Accessible via walker Home Equipment: Rolling walker, 4 Wheeled walker, Cane Other : no recent falls Prior Function Lives With: Son (lives with pt and IND living but does leave at times to tyler and complete other activites.) Receives Help From: Family (one local dtr that fills in for son when they are not home and 2nd dtr that is semi local and assist as able/needed) Level of Mobility: Independent with ADLs and functional transfers or gait (with use of RW or 4WW) Homemaking Assistance: Needs assistance Meal Prep: (shares with son) Laundry: Independent Cleaning: Total assist (cleaning service 2x wekk) Other: IND with ambulation with use of RW or 4WW, no recent falls ADL / IADL Hand Dominance: Right Hearing / Speech / Vision Hearing: Hard of hearing/hearing concerns Speech: Within Functional Limits Cognition Overall Cognitive Status: Within Functional Limits Sensation Overall Sensation Status: Within Functional Limits (denies n/t) Bed Mobility Supine to Sit: Mod assist Sit to Supine: (in chair at end of session with needs in reach and RN aware) Other: mod A needed to progress RLE off EOB 2/2 pain as well as to progress trunk to upright sitting. sat EOB 10-12 min for transfer prep and also to allow pain to reduce Transfers Sit to Stand: Mod assist Stand to Sit: Min assist Other: poor hand placement as pt had BL hands on RW to complte transfer. mod A needed to progress to upright sitting and there was a marked increase in time and effort to complete 2/2 pain Gait Base of Support: Within Functional Limits Pattern: Decreased farida, Antalgic gait, R Decreased heel strike, R Decreased foot clearance, R Decreased stance time Gait Assistance: Min assist Assistive Device: Rolling walker Gait Distance: 4' bed to chair Limiting Factors to Gait: Pain Other: ambulation is very slowed and limited by pain. pt requires min A to maintain balance and navigate RW. denies any dizziness or lightheaded feeling. increased verbal cues needed for proper sequence Balance Balance Evaluation: Exceptions to Functional Limits Sitting Balance: Static: Good Sitting Balance: Dynamic: Good Standing Balance: Static: Fair Standing Balance: Dynamic: Fair Other: standing balance limited d/t pain RLE Assessment: (limited d/t pain) LLE Assessment: (gross functional weakness 4/5) Activity Tolerance Endurance: Tolerates 30 minutes activity with rest breaks Other: limited by pain and required multiple breaks throughout. educated on PT purpose and POC and verbalizes understanding Plan Physical Therapy Care Plan Physical Therapy Care Plan (Active) Template: PT - Physical Therapy Problem: Bed Mobility Dates: Start: 01/02/24 Disciplines: PT Goal: Patient will perform bed mobility with Modified [place] Dates: Start: 01/02/24 Expected End: 01/08/24 Description: HOB elevated and use of rail as needed Disciplines: PT Problem: Gait Dates: Start: 01/02/24 Disciplines: PT Goal: Patient will perform gait with Modified [place] Dates: Start: 01/02/24 Expected End: 01/08/24 Description: With__RW__,__100__feet Goal Description: to facilitate household ambulation Disciplines: PT Problem: ROM Dates: Start: 01/02/24 Disciplines: PT Goal: Improve ROM Dates: Start: 01/02/24 Expected End: 01/08/24 Description: Of extremity/ location: R knee to 0-90 degrees To facilitate: improved ability to transfer Disciplines: PT Problem: Standing Balance Dates: Start: 01/02/24 Disciplines: PT Goal: Improve balance to good Dates: Start: 01/02/24 Expected End: 01/08/24 Description: Static with RW Dynamic with RW To promote safety with transfers and gait. Disciplines: PT Problem: Strength Dates: Start: 01/02/24 Disciplines: PT Goal: Improve strength Dates: Start: 01/02/24 Expected End: 01/08/24 Description: Pt will perform x15 reps, AROM, of all prescribed LE exercises to improve strength andfacilitate their ability to transfer and ambulate. Disciplines: PT Problem: Transfers Dates: Start: 01/02/24 Disciplines: PT Goal: Patient will perform transfers with Modified [place] Dates: Start: 01/02/24 Expected End: 01/08/24 Description: Goal Description: Using appropriate technique and hand placement for safety at home Disciplines: PT Physical Therapy Care Plan (Resolved) There are no resolved problems. 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 Encourage patient or legal national account representative to report early pain and ask for pain medicine when needed 2. Assess pain using appropriate pain scale and include the scale used when documenting 3. Administer analgesics based on type and severity of pain and evaluate response within appropriate time frame 4. Implement non-pharmacological measures as appropriate and evaluate response 5. Consider cultural and social influences on pain and pain management 6. Notify LIP if interventions ineffective or patient reports new pain 7. Monitor vital signs including pulse ox, end-tidal CO2 based on pain intervention 8. Reassess pain per policy 9. Teach patient or legal national account representative interventions for comforting Outcome: Progressing Note: Evaluation of progress towards goal: PRN pain medication available per patient request. Will continue to monitor. Problem: Safety Goal: Patient will be injury free during hospitalization Description: INTERVENTIONS: 1. Assess patient's risk for falls and implement fall prevention plan of care per policy 2. Provide and maintain a safe environment 3. Proper use of double Identifiers 4. Medication administration using the 5 rights 5. Hand hygiene 6. Specimens are labeled at the bedside 7. Instruct patient/ patient national account representative about use of safety devices 8. Include patient/ patient national account representative in decisions related to safety Outcome: Progressing Note: Evaluation of progress towards goal: Patient free from hospital injury. Will continue to assess risk for falls throughout shift. Problem: Infection Goal: Absence of infection during hospitalization Description: Interventions: 1. Assess and monitor for signs and symptoms of infection 2. Monitor lab/diagnostic results 3. Monitor all insertion sites i.e., indwelling lines, tubes and drains 4. Monitor endotracheal (as able) and nasal secretions for changes in amount and color 5. Administer medications as ordered 6. Instruct and encourage patient and family to use good hand hygiene technique 7. Identify and instruct patient/patient national account representative in use of appropriate isolation precautionsfor identified infection/symptoms 8. Provide and discuss with patient/patient national account representative on educational MDRO sheet 9. Encourage and monitor nutritional status daily and consult supervisor loading if indicated 10. Implement neutropenic guidelines as needed 11. Review exposure to history of communicable disease and recent travel history on admission 12. Encourage annual influenza vaccine 13. Encourage pneumonia vaccine Outcome: Progressing Note: Evaluation of progress towards goal: Monitor labs and vital signs. Patient afebrile at this time. Problem: Knowledge Deficit Goal: Patient/patient national account representative demonstrates understanding of disease process, treatment plan,medications, and discharge instructions Description: INTERVENTIONS 1. Complete learning assessment and assess knowledge base 2. Provide teaching at level of understanding 3. Provide teaching via preferred learning method(s) Outcome: Progressing Note: Evaluation of progress towards goal: Plan of care reviewed with patient. Medications discussed prior to administration. Problem: Discharge Planning Goal: Discharge to post-acute care, other facility, or home with appropriate resources Description: Patient's goal is: INTERVENTIONS 1. Conduct assessment to determine patient/family and health care team treatment goals, and need for post-acute services based on payer coverage, community resources, and patient preferences, and barriers to discharge 2. Coordinate with Social work, Care Navigation, and Utilization Review to arrange appropriate level of services according to patient's needs based on patient preference and payer coverage in collaboration with the physician and health care team 3. Address psychosocial, clinical, and financial barriers to discharge as identified in assessment in conjunction with the patient/family and health care team 4. Consult appropriate ancillary services (i.e.. PT/OT/ST, etc) as needed 5. Communicate with and update the patient/family, physician, and health care team regarding progress on the discharge plan 6. Identify discharge learning needs (meds, wound care, etc). 7. Arrange for needed discharge transportation as appropriate Outcome: Progressing Note: Evaluation of progress towards goal: Discharge planning and education reviewed with patient. [facility]11-23-2024 Procedure note* Op Note - Deuce Kirkland MD - 01/01/2024 1:53 PM EST Patient Name: Delicia Hsu Medical Record: [id number] Date of Operation: 01/02/2024 Preoperative Diagnosis: Right lower extremity critical limb ischemia with rest pain and tissue loss Postoperative Diagnosis: Same Procedure: 1. Right iliofemoral endarterectomy and bovine pericardial patch angioplasty 2. Right GSV harvest and high ligation of the great saphenous vein. 3. Right popliteal endarterectomy in GSV patch angioplasty 4. Right fem-pop bypass using 8 mm ring PTFE and GSV vein patch 5. Aortogram and pelvic angiogram with right common iliac stenting using 8 by 29 VBX covered balloon expandable stent 6. Completion right lower extremity angiogram Surgeon: Deuce Kirkland MD Anesthesia: General anesthesia Estimated Blood Loss: less than 100 mL Complications: None; patient tolerated the procedure well. Implants: 8 mm ring PTFE an 8 x 29 VBX stent Specimens: None Disposition: ICU - extubated and stable. Condition: stable Findings: Heavily calcified atherosclerotic plaque in both the common femoral and the popliteal artery. The GSV was sclerosed and small from the distal thigh down. Was able to use a relatively thick but large proximal GSV for the popliteal patch. I also ligated the GSV high ligation because she hasvenous ulcer that is nonhealing. History: This is a pleasant 88-year-old lady with right lower extremity nonhealing venous ulcer shehas combined arterial and venous insufficiency. She is here for arterial revascularization and highligation of her GSV at the same time. I discussed the procedure risks benefits and alternatives with her in the family informed consent was obtained patient was taken back to the OR. Operative Details: The patient was taken back to the operating room and placed in the supine position. Appropriate cardiopulmonary monitors were set. General anesthesia was induced. The abdomen rightleg and left upper thigh was prepped and draped in the usual sterile surgical fashion. After time-out and safety pause and antibiotics were given longitudinal incision was made on the right groin thecommon femoral external iliac profunda and SFA were all controlled using vessel loops. All brancheswere controlled using vessel loops. I then exposed the popliteal artery [id number]. The angiogram shows that there is constitution [id number]. To my surprise the heavy calcification in the pop liteal segment. I did high ligation of the GSV and harvested the very proximal segment of the GSV. I tunneled the graft of an 8 mm ringed PTFE. Give the patient heparin for an ACT above 250 and did alongitudinal arteriotomy in the common femoral external iliac artery and proximal SFA. Did endarterectomy of the external iliac common femoral proximal SFA in the origin of the profunda femoris artery. The plaque was tacked of the profunda femoral artery origin. Longitudinal arteriotomy was createdheavily calcified plaque was removed. GSV was used to create a patch here. Isn't constructed end-to-side anastomosis between the common femoral patch and the 8 mm ringed PTFE and the popliteal patch distally. We had excellent flow with a strong signals. I then obtained retrograde access in the common femoral in the right side. Placed catheter in the abdominal aorta and did an aortogram pelvic angiogram. There was high-grade stenosis in the common iliac artery that is known to us 8 x 29 VBX covered stent was used to treat this lesion. Of note this was heavily calcified lesion. I went conservative was the A29 to avoid disruption. We had a great result both radiologically and from flow standpoint. Completion angiogram showed wide open flow in the bypass and runoff through the AT down to the foot. Hemostasis was achieved heparin was reversed and the wounds were closed in layers using interru pted 3-0 Vicryl and 2-0 Vicryl followed by Prolene in the groin glue and Steri- Strips and below-knee incision was closed using 2-0 Vicryl and 2-0 Prolene vertical mattress. The GSV high ligation harvest site was closed using 3-0 Vicryl 4-0 Monocryl glue. Patient tolerated the procedure very well and sent to the ICU in good condition. Deuce Kirkland MD, QUENTIN, RPVI, FSVS, FACS [facility] Vascular Surgery [facility]11-23-2024 Attending History and physical note* Deuce Kirkland MD - 01/01/2024 12:45 PM EST HISTORY AND PHYSICAL INTERVAL NOTE: Delicia Hsu 1935 [id number] H&P reviewed. The patient was examined and there are no changes to the H&P. Deuce Kirkland MD Source Note - Deuce Kirkland MD - 12/30/2023 1:10 PM EST Summary: MITCH with PVR Images from the original note were not included. To: GYPSY MCMAHON MD HPI: Delicia Hsu is a 88 y.o. 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 She has a venous ulcer. Her MITCH 0.2. She has multilevel occlusive disease. She has significantGSV reflux as well. She mentioned to me that she had open heart surgery in the use her vein in the past. The ultrasound however shows significant GSV reflux in the right. I did ultrasound-guided injection sclerotherapy. I discussed with her doing right iliofemoral endarterectomy fem above-knee pop bypass and iliac stenting. I will ligate the GSV or use it for the bypass. I discussed the risks benefits and alternatives and informed consent was obtained.. Review of Systems: Review of Systems Constitutional: Negative. HENT: Negative. Respiratory: Negative. Cardiovascular: Negative. Gastrointestinal: Negative. Endocrine: Negative. Genitourinary: Negative. Musculoskeletal: Negative. Skin: Negative. Neurological: Negative. Hematological: Negative. Medications: Current Outpatient Medications on File Prior to Visit Medication Sig Dispense Refill acetaminophen (TYLENOL EXTRA STRENGTH) 500 mg tablet Take 2 tablets (1,000 mg total) by mouth every6 (six) hours as needed for pain. 30 tablet 0 acidophilus-pectin, citrus 25 million cell -100 mg tablet Take 1 tablet by mouth daily with breakfast. ascorbic acid, vitamin C, (VITAMIN C) 250 mg tablet Take 1 tablet (250 mg total) by mouth in the morning and 1 tablet (250 mg total) before bedtime. bismuth subsalicylate (PEPTO-BISMOL ORAL) daily as needed. [...] mg total) by mouth in the morning. Indications:treatment to prevent a heart attack. estradioL (ESTRACE) 0.01 % (0.1 mg/gram) vaginal cream as needed. loperamide (IMODIUM A-D) 2 mg tablet Take 2 tablets (4 mg total) by mouth as needed. melatonin 10 mg tablet Take 1 tablet by mouth nightly. nebivoloL (BYSTOLIC) 5 mg tablet Take 2 tablets (10 mg total) by mouth in the morning. [...] in the morning. Indications: high blood pressure. zinc 50 mg tablet tablet Take 1 tablet (50 mg total) by mouth in the morning. aspirin 81 mg Take 1 tablet (81 mg total) by mouth in the morning. H-CHLOR 12 0.125 % solution external solution APPLY TO RIGHT LOWER LEG WOUND DAILY (Patient not taking: Reported on 12/30/2023) mupirocin (BACTROBAN) 2 % ointment APPLY TO LEG WOUND DAILY (Patient not taking: Reported on 12/30/2023) naloxone (NARCAN) 4 mg/actuation spray,non-aerosol nasal spray Administer 1 spray (4 mg total) intoalternating nostrils as needed for opioid reversal for up to 2 doses. (Patient not taking: Reportedon 12/30/2023) 2 each 0 vancomycin (VANCOCIN) 125 mg capsule Take 1 capsule (125 mg total) by mouth in the morning. PREVENTUTI. (Patient not taking: Reported on 12/24/2023) No current facility-administered medications on file prior [...] loss) Hyperlipidemia Hypertension PAD (peripheral artery disease) ([facility]) Peptic ulceration BLEEDING ULCER ADMITTED 2018 X13 DAYS TATYANA Rash Skin cancer REMOVED Sleep apnea no cpap Thin skin Urinary tract infection CHRONIC, SEES ID EVERY 3 MONTHS Visual impairment Wound of ankle RIGHT SINCE 07/2023 Past Surgical History: Past Surgical History: Procedure Laterality Date ABDOMINAL SURGERY ANGIOPLASTY ILIAC-ILIAC SHOCKWAVE INTRAVASCULAR LITHOTRIPSY Right 11/18/2023 Performed by Deuce Kirkland MD at [facility] SPECIAL PROC ARTHROSCOPY SHOULDER W/ OPEN ROTATOR CUFF REPAIR Left 2011 CARDIAC SURGERY CATARACT EXTRACTION CHOLECYSTECTOMY N/A 2008 CORONARY ARTERY BYPASS GRAFT 1998 X5 EYE SURGERY HERNIA REPAIR N/A 03/2012 HIP FRACTURE SURGERY Left 05/2017 HYSTERECTOMY N/A JOINT REPLACEMENT lower ext angiogram Bilateral 01/07/2022 Performed by Taryn Belle MD at [facility] CARDIAC CATH LABS SCLEROTHERAPY LOWER EXTREMITY Right 12/24/2023 Performed by Deuce Kirkland MD at [facility] TOTAL HIP ARTHROPLASTY Left 2020 VASCULAR SURGERY angiogram Social and Family History: [...] the assessment and plan below. Vitals: BP 186/68 Pulse 65 Wt 64 kg (141 lb) BMI 20.23 kg/m Body mass index is 20.23 kg/m . Physical Exam: Physical Exam Constitutional: [...] content normal. Judgment: Judgment normal. 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 Sheis scheduled for Wednesday. Venous insufficiency (chronic) (peripheral) Current Assessment & Plan I did ultrasound-guided injection sclerotherapy. I discussed with her that she will need a right lower extremity revascularization. I might need to use her vein. If I do not use her vein I will do ligation of her GSV. Delicia was seen today for follow-up. 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 While intending to generate a timely document that accurately reflects the content of the visit, no guarantee can be provided that every grammatical or spelling mistake has been or will be identified or corrected. Thank you for your understanding. [facility]11-23-2024 History and physical note* eDuce Kirkland MD - 01/01/2024 12:45 PM EST HISTORY AND PHYSICAL INTERVAL NOTE: Delicia Hsu 1935 [id number] H&P reviewed. The patient was examined and there are no changes to the H&P. Deuce Kirkland MD Source Note - Deuce Kirkland MD - 12/30/2023 1:10 PM EST Summary: MITCH with PVR Images from the original note were not included. To: GYPSY MCMAHON MD HPI: Delicia Hsu is a 88 y.o. 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 She has a venous ulcer. Her MITCH 0.2. She has multilevel occlusive disease. She has significantGSV reflux as well. She mentioned to me that she had open heart surgery in the use her vein in the past. The ultrasound however shows significant GSV reflux in the right. I did ultrasound-guided injection sclerotherapy. I discussed with her doing right iliofemoral endarterectomy fem above-knee pop bypass and iliac stenting. I will ligate the GSV or use it for the bypass. I discussed the risks benefits and alternatives and informed consent was obtained.. Review of Systems: Review of Systems Constitutional: Negative. HENT: Negative. Respiratory: Negative. Cardiovascular: Negative. Gastrointestinal: Negative. Endocrine: Negative. Genitourinary: Negative. Musculoskeletal: Negative. Skin: Negative. Neurological: Negative. Hematological: Negative. Medications: Current Outpatient Medications on File Prior to Visit Medication Sig Dispense Refill acetaminophen (TYLENOL EXTRA STRENGTH) 500 mg tablet Take 2 tablets (1,000 mg total) by mouth every6 (six) hours as needed for pain. 30 tablet 0 acidophilus-pectin, citrus 25 million cell -100 mg tablet Take 1 tablet by mouth daily with breakfast. ascorbic acid, vitamin C, (VITAMIN C) 250 mg tablet Take 1 tablet (250 mg total) by mouth in the morning and 1 tablet (250 mg total) before bedtime. bismuth subsalicylate (PEPTO-BISMOL ORAL) daily as needed. [...] mg total) by mouth in the morning. Indications:treatment to prevent a heart attack. estradioL (ESTRACE) 0.01 % (0.1 mg/gram) vaginal cream as needed. loperamide (IMODIUM A-D) 2 mg tablet Take 2 tablets (4 mg total) by mouth as needed. melatonin 10 mg tablet Take 1 tablet by mouth nightly. nebivoloL (BYSTOLIC) 5 mg tablet Take 2 tablets (10 mg total) by mouth in the morning. [...] in the morning. Indications: high blood pressure. zinc 50 mg tablet tablet Take 1 tablet (50 mg total) by mouth in the morning. aspirin 81 mg Take 1 tablet (81 mg total) by mouth in the morning. H-CHLOR 12 0.125 % solution external solution APPLY TO RIGHT LOWER LEG WOUND DAILY (Patient not taking: Reported on 12/30/2023) mupirocin (BACTROBAN) 2 % ointment APPLY TO LEG WOUND DAILY (Patient not taking: Reported on 12/30/2023) naloxone (NARCAN) 4 mg/actuation spray,non-aerosol nasal spray Administer 1 spray (4 mg total) intoalternating nostrils as needed for opioid reversal for up to 2 doses. (Patient not taking: Reportedon 12/30/2023) 2 each 0 vancomycin (VANCOCIN) 125 mg capsule Take 1 capsule (125 mg total) by mouth in the morning. PREVENTUTI. (Patient not taking: Reported on 12/24/2023) No current facility-administered medications on file prior [...] loss) Hyperlipidemia Hypertension PAD (peripheral artery disease) ([facility]) Peptic ulceration BLEEDING ULCER ADMITTED 2018 X13 DAYS TATYANA Rash Skin cancer REMOVED Sleep apnea no cpap Thin skin Urinary tract infection CHRONIC, SEES ID EVERY 3 MONTHS Visual impairment Wound of ankle RIGHT SINCE 07/2023 Past Surgical History: Past Surgical History: Procedure Laterality Date ABDOMINAL SURGERY ANGIOPLASTY ILIAC-ILIAC SHOCKWAVE INTRAVASCULAR LITHOTRIPSY Right 11/18/2023 Performed by Deuce Kirkland MD at [facility] SPECIAL PROC ARTHROSCOPY SHOULDER W/ OPEN ROTATOR CUFF REPAIR Left 2011 CARDIAC SURGERY CATARACT EXTRACTION CHOLECYSTECTOMY N/A 2008 CORONARY ARTERY BYPASS GRAFT 1998 X5 EYE SURGERY HERNIA REPAIR N/A 03/2012 HIP FRACTURE SURGERY Left 05/2017 HYSTERECTOMY N/A JOINT REPLACEMENT lower ext angiogram Bilateral 01/07/2022 Performed by Taryn Belle MD at [facility] CARDIAC CATH LABS SCLEROTHERAPY LOWER EXTREMITY Right 12/24/2023 Performed by Deuce Kirkland MD at [facility] TOTAL HIP ARTHROPLASTY Left 2019 VASCULAR SURGERY [...] the assessment and plan below. Vitals: BP 186/68 Pulse 65 Wt 64 kg (141 lb) BMI 20.23 kg/m Body mass index is 20.23 kg/m . Physical Exam: Physical Exam Constitutional: [...] content normal. Judgment: Judgment normal. 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 Sheis scheduled for Wednesday. Venous insufficiency (chronic) (peripheral) Current Assessment & Plan I did ultrasound-guided injection sclerotherapy. I discussed with her that she will need a right lower extremity revascularization. I might need to use her vein. If I do not use her vein I will do ligation of her GSV. Delicia was seen today for follow-up. 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 While intending to generate a timely document that accurately reflects the content of the visit, no guarantee can be provided that every grammatical or spelling mistake has been or will be identified or corrected. Thank you for your understanding. [facility] Nurse Note* Perioperative Nursing Note - Nancy Rubio RN - 12/31/2023 2:29 PM EST Pre adm labs sent to Dr Kirkland [facility]11-22-2024 History and physical note* TIFFANIE Ribera - 12/31/2023 8:30 AM EST PRE-ADMISSION TESTING HISTORY AND PHYSICAL EXAM DATE: 12/31/23 PCP: GYPSY MCMAHON MD CHIEF COMPLAINT: Claudication HISTORY OF PRESENT ILLNESS: Delicia Hsu, a 88 y.o. White or female, presents to [facility] for a pre- surgical H&P. Thepatient reports intermittent rest pain and short distance claudication. She also has a non-healing ulcer on the medial portion of her right lower leg. She has had this wound despite following with wound care and frequent dressing changes by home health nurse. She had arterial dopplers on 12/09/2023 demonstrating: Interpretation Summary Previous: Previous lower extremity arterial physiological exam performed: 06/23/2023; Highest TBI: Right: 0.19; Left: 0.24. Evidence of vessel incompressibility. Right: Mildly abnormal thigh, moderately abnormal calf and flatline ankle level PVR waveform contour. No calf waveform augmentation noted. PT MITCH is unobtainable due to absent CW Doppler; DP MITCH is 0.23. TBI is not available due to flatline PPG. Hyperemic common femoral, and Monophasic popliteal and DP CW Doppler waveforms. Absent PT CW Doppler waveforms. Left: Mildly abnormal thigh, moderately abnormal calf and ankle level PVR waveform contour. No calfwaveform augmentation noted. Audible PT and DP arterial Doppler signals despite occlusive cuff pressures exceeding >250mmHg. TBI is not available due to flatline PPG. Hyperemic common femoral, Monophasic popliteal, PT and DP CW Doppler waveforms. Conclusions: BILATERAL: Multilevel arterial disease (common femoral artery or above with femoropopliteal and/or tibioperoneal); MITCH consistent with severe arterial disease.When compared to previous report no significant changes were noted. Signed at 1949 EST Of note, the patient was evaluated 11/09/2023 by Cardiology and placed at intermediate non-prohibitive risk for cardiovascular complications for a high risk surgery. Ms. Hsu denies chest pain, dyspnea, recent illness or fever. PAST MEDICAL HISTORY: Past Medical History: Diagnosis Date Anesthesia complication 2018 HAD HALLUCINATIONS FOR A FEW DAYS AFTER HIP SURGERY Arrhythmia Arthritis C. difficile diarrhea 12/2022 HOSPITALIZED, 01/2023 Cataract Cholecystitis Chronic kidney disease Colitis Coronary artery disease Critical limb ischemia of right lower extremity ([facility]) Dental disease UPPER AND LOWER DENTURE DIAZ (dyspnea on exertion) Fractures 2018 LEFT HIP GERD (gastroesophageal reflux disease) HL (hearing loss) Hyperlipidemia Hypertension Microscopic colitis PAD (peripheral artery disease) ([facility]) Peptic ulceration BLEEDING ULCER ADMITTED 2018 X13 DAYS TATYANA Rash Skin cancer REMOVED Sleep apnea No CPAP Thin skin Urinary tract infection CHRONIC, SEES ID EVERY 3 MONTHS Visual impairment Wound of ankle RIGHT SINCE 07/2023 PAST SURGICAL HISTORY: Past Surgical History: Procedure Laterality Date ABDOMINAL SURGERY ANGIOPLASTY ILIAC-ILIAC SHOCKWAVE INTRAVASCULAR LITHOTRIPSY Right 11/18/2023 Performed by Deuce Kirkland MD at [facility] SPECIAL PROC ARTHROSCOPY SHOULDER W/ OPEN ROTATOR CUFF REPAIR Left 2011 CARDIAC SURGERY CATARACT EXTRACTION CHOLECYSTECTOMY N/A 2008 CORONARY ARTERY BYPASS GRAFT 1999 x 5 EYE SURGERY HERNIA REPAIR N/A 03/2012 HIP FRACTURE SURGERY Left 05/2017 HYSTERECTOMY N/A JOINT REPLACEMENT lower ext angiogram Bilateral 01/07/2022 Performed by Taryn Belle MD at [facility] CARDIAC CATH LABS SCLEROTHERAPY LOWER EXTREMITY Right 12/24/2023 Performed by Deuce Kirkland MD at [facility] TOTAL HIP ARTHROPLASTY Left 2019 VASCULAR SURGERY Angiogram FAMILY HISTORY: Family History Problem Relation Age of Onset Cerebral aneurysm Mother Heart failure Father Cancer Sister Cancer Brother Anesthesia problems Neg Hx SOCIAL HISTORY: The patient reports current alcohol use of about 1.0 standard drink of alcohol per week. She reports that she quit smoking about 30 years ago. Her smoking use included cigarettes. She has never used smokeless tobacco. She reports no history of drug use. ALLERGIES: Allergies Allergen Reactions Nsaids (Non-Steroidal Anti-Inflammatory Drug) Other (See Comments) [facility] Penicillins Rash Levofloxacin Other (See Comments) Sleeplessness restless legs Antihistamine 12 Hour Other (See Comments) restlessness Diphenhydramine Hcl Other (See Comments) restlessness Ezetimibe Other (See Comments) unknown Gemfibrozil Other (See Comments) unknown Histamine H2 Inhibitors Other (See Comments) restlessness Phenergan [Promethazine] Anxiety JITTERY Propoxyphene N-Acetaminophen Other (See Comments) JITTERY NOT ALLERGIC TO TYLENOL MEDICATIONS: Current Outpatient Medications: acetaminophen (TYLENOL EXTRA STRENGTH) 500 mg tablet, Take 2 tablets (1,000 mg total) by mouth every 6 (six) hours as needed for pain., Disp: 30 tablet, Rfl: 0 acidophilus-pectin, citrus 25 million cell -100 mg tablet, Take 1 tablet by mouth daily with breakfast., Disp: , Rfl: ascorbic acid, vitamin C, (VITAMIN C) 250 mg tablet, Take 1 tablet (250 mg total) by mouth in the morning and 1 tablet (250 mg total) before bedtime., Disp: , Rfl: bismuth subsalicylate (PEPTO-BISMOL ORAL), daily as needed. TAKES 3 TABS MORNING AND 3 TABS NIGHTLY, Disp: , Rfl: budesonide EC (ENTOCORT EC) 3 mg 24 hr capsule, Take 1 capsule (3 mg total) by mouth in the morning., Disp: , Rfl: cholecalciferol, vitamin D3, (D3-50 CHOLECALCIFEROL ORAL), Take 1 tablet by mouth in the morning., Disp: , Rfl: clopidogreL (PLAVIX) 75 mg tablet, Take 1 tablet (75 mg total) by mouth in the morning. Indications: treatment to prevent a heart attack., Disp: , Rfl: estradioL (ESTRACE) 0.01 % (0.1 mg/gram) vaginal cream, as needed., Disp: , Rfl: loperamide (IMODIUM A-D) 2 mg tablet, Take 2 tablets (4 mg total) by mouth as needed., Disp: , Rfl: melatonin 10 mg tablet, Take 1 tablet by mouth nightly., Disp: , Rfl: nebivoloL (BYSTOLIC) 5 mg tablet, Take 2 tablets (10 mg total) by mouth in the morning. Indications: high blood pressure., Disp: , Rfl: pantoprazole (PROTONIX) 40 mg EC tablet, Take 20 mg by mouth in the morning. Indications: gastroesophageal reflux disease., Disp: , Rfl: simvastatin (ZOCOR) 40 mg tablet, Take 1 tablet (40 mg total) by mouth in the morning. Indications:excessive fat in the blood., Disp: , Rfl: spironolactone (ALDACTONE) 25 mg tablet, Take 2 tablets (50 mg total) by mouth in the morning. Indications: high blood pressure., Disp: , Rfl: zinc 50 mg tablet tablet, Take 1 tablet (50 mg total) by mouth in the morning., Disp: , Rfl: aspirin 81 mg, Take 1 tablet (81 mg total) by mouth in the morning., Disp: , Rfl: H-CHLOR 12 0.125 % solution external solution, APPLY TO RIGHT LOWER LEG WOUND DAILY (Patient not taking: Reported on 12/30/2023), Disp: , Rfl: mupirocin (BACTROBAN) 2 % ointment, APPLY TO LEG WOUND DAILY (Patient not taking: Reported on 12/30/2023), Disp: , Rfl: naloxone (NARCAN) 4 mg/actuation spray,non-aerosol nasal spray, Administer 1 spray (4 mg total) into alternating nostrils as needed for opioid reversal for up to 2 doses. (Patient not taking: Reported on 12/30/2023), Disp: 2 each, Rfl: 0 vancomycin (VANCOCIN) 125 mg capsule, Take 1 capsule (125 mg total) by mouth in the morning. PREVENT UTI. (Patient not taking: Reported on 12/24/2023), Disp: , Rfl: REVIEW OF SYSTEMS: Review of Systems Constitutional: Negative for fever. HENT: Positive for dental problem (Denture) and hearing loss. Negative for rhinorrhea and sore throat. Eyes: Negative for visual disturbance. Respiratory: Negative for cough, chest tightness and shortness of breath. Cardiovascular: Negative for chest pain, leg swelling and chest discomfort. Gastrointestinal: Positive for diarrhea. Negative for nausea, vomiting, abdominal pain, constipation, blood in stool and abdominal distention. Genitourinary: Negative for dysuria, hematuria and difficulty urinating. Musculoskeletal: Positive for arthralgias. Negative for myalgias, back pain and neck pain. Claudication Skin: Positive for wound (RLE ulcer). Negative for rash. Neurological: Negative for dizziness, seizures and headaches. Hematological: Bruises/bleeds easily (ASA/Plavix). Psychiatric/Behavioral: Negative for agitation, behavioral problems and confusion. VITAL SIGNS: BP (!) 206/80 Pulse 56 Temp 36.1 C (96.9 F) (Temporal) Resp 18 Ht 177.8 cm (5' 10 ) Wt 65.4 kg (144 lb 2.9 oz) SpO2 97% BMI 20.69 kg/m PHYSICAL EXAM: Physical Exam Vitals reviewed. Constitutional: General: She is not in acute distress. Appearance: She is well-developed. HENT: Head: Normocephalic and atraumatic. Right Ear: External ear normal. Left Ear: External ear normal. Nose: No rhinorrhea. Mouth/Throat: Mouth: Mucous membranes are moist. Eyes: General: No scleral icterus. Cardiovascular: Rate and Rhythm: Normal rate and regular rhythm. Heart sounds: Normal heart sounds. No murmur heard. Pulmonary: Effort: Pulmonary effort is normal. Breath sounds: Normal breath sounds. No wheezing or rhonchi. Abdominal: General: Bowel sounds are normal. Palpations: Abdomen is soft. Musculoskeletal: Cervical back: Neck supple. Lymphadenopathy: Cervical: No cervical adenopathy. Skin: General: Skin is warm and dry. Neurological: Mental Status: She is alert and oriented to person, place, and time. Psychiatric: Behavior: Behavior normal. PERTINENT TESTING AVAILABLE IN [facility] (WITHIN THE PAST 2 YEARS): EK11/10/2023 [facility]: *Pending cardiology interpretation* Echo: No results found. Stress test: No results found. Holter: No results found. Cardiac catheterization: No results found. Carotids: No results found. Pulmonary function testing: No results found. RECENT LABS: Lab Results Component Value Date WBC 8.7 12/22/2023 HGB 9.3 (L) 12/22/2023 HCT 27.2 (L) 12/22/2023 PLT 288 12/22/2023 INR 1.0 12/22/2023 PTT 28 12/22/2023 SODIUM 140 12/22/2023 K 4.9 12/22/2023 CL 108 12/22/2023 CO2 24 12/22/2023 CALCIUM 9.5 12/22/2023 GLU 96 12/22/2023 CREATININE 1.26 (H) 12/22/2023 BUN 28 (H) 12/22/2023 GFR 52 (L) 05/27/2016 GFR >60 05/27/2016 EGFR 41 (L) 12/22/2023 *Please note that labs listed above are the most recent lab values available in [facility] at the time the H&P was signed. *Per department policy, chart managers to follow and report testing. ASSESSMENT / DIAGNOSIS: Right Lower Extremity Ischemia, Arterial Occlusive Disease PLAN: Delicia Hsu is scheduled for Endarterectomy Femoral (Iliofemoral Endarterectomy) - Right Angioplasty Iliac - Right Bypass Artery Femoral Popliteal - Right with Dr. Kirkland on 01/01/2024. TIFFANIE Ribera 12/31/23 0955 [facility]11-22-2024 History and physical note* TIFFANIE Ribera - 12/31/2023 8:30 AM EST PRE-ADMISSION TESTING HISTORY AND PHYSICAL EXAM DATE: 12/31/23 PCP: GYPSY MCMAHON MD CHIEF COMPLAINT: Claudication HISTORY OF PRESENT ILLNESS: Delicia Hsu, a 88 y.o. White or female, presents to [facility] for a pre- surgical H&P. Thepatient reports intermittent rest pain and short distance claudication. She also has a non-healing ulcer on the medial portion of her right lower leg. She has had this wound despite following with wound care and frequent dressing changes by home health nurse. She had arterial dopplers on 12/09/2023 demonstrating: Interpretation Summary Previous: Previous lower extremity arterial physiological exam performed: 06/23/2023; Highest TBI: Right: 0.19; Left: 0.24. Evidence of vessel incompressibility. Right: Mildly abnormal thigh, moderately abnormal calf and flatline ankle level PVR waveform contour. No calf waveform augmentation noted. PT MITCH is unobtainable due to absent CW Doppler; DP MITCH is 0.23. TBI is not available due to flatline PPG. Hyperemic common femoral, and Monophasic popliteal and DP CW Doppler waveforms. Absent PT CW Doppler waveforms. Left: Mildly abnormal thigh, moderately abnormal calf and ankle level PVR waveform contour. No calfwaveform augmentation noted. Audible PT and DP arterial Doppler signals despite occlusive cuff pressures exceeding >250mmHg. TBI is not available due to flatline PPG. Hyperemic common femoral, Monophasic popliteal, PT and DP CW Doppler waveforms. Conclusions: BILATERAL: Multilevel arterial disease (common femoral artery or above with femoropopliteal and/or tibioperoneal); MITCH consistent with severe arterial disease.When compared to previous report no significant changes were noted. Signed at 1949 EST Of note, the patient was evaluated 11/09/2023 by Cardiology and placed at intermediate non-prohibitive risk for cardiovascular complications for a high risk surgery. Ms. Hsu denies chest pain, dyspnea, recent illness or fever. PAST MEDICAL HISTORY: Past Medical History: Diagnosis Date Anesthesia complication 2018 HAD HALLUCINATIONS FOR A FEW DAYS AFTER HIP SURGERY Arrhythmia Arthritis C. difficile diarrhea 12/2022 HOSPITALIZED, 01/2023 Cataract Cholecystitis Chronic kidney disease Colitis Coronary artery disease Critical limb ischemia of right lower extremity (CMS-HCC) Dental disease UPPER AND LOWER DENTURE DIAZ (dyspnea on exertion) Fractures 2018 LEFT HIP GERD (gastroesophageal reflux disease) HL (hearing loss) Hyperlipidemia Hypertension Microscopic colitis PAD (peripheral artery disease) ([facility]) Peptic ulceration BLEEDING ULCER ADMITTED 2018 X13 DAYS TATYANA Rash Skin cancer REMOVED Sleep apnea No CPAP Thin skin Urinary tract infection CHRONIC, SEES ID EVERY 3 MONTHS Visual impairment Wound of ankle RIGHT SINCE 07/2023 PAST SURGICAL HISTORY: Past Surgical History: Procedure Laterality Date ABDOMINAL SURGERY ANGIOPLASTY ILIAC-ILIAC SHOCKWAVE INTRAVASCULAR LITHOTRIPSY Right 11/18/2023 Performed by Deuce Kirkland MD at [facility] SPECIAL PROC ARTHROSCOPY SHOULDER W/ OPEN ROTATOR CUFF REPAIR Left 2011 CARDIAC SURGERY CATARACT EXTRACTION CHOLECYSTECTOMY N/A 2008 CORONARY ARTERY BYPASS GRAFT 1998 x 5 EYE SURGERY HERNIA REPAIR N/A 03/2012 HIP FRACTURE SURGERY Left 05/2017 HYSTERECTOMY N/A JOINT REPLACEMENT lower ext angiogram Bilateral 01/07/2022 Performed by Taryn Belle MD at [facility] CARDIAC CATH LABS SCLEROTHERAPY LOWER EXTREMITY Right 12/24/2023 Performed by Deuce Kirkland MD at [facility] TOTAL HIP ARTHROPLASTY Left 2019 VASCULAR SURGERY Angiogram FAMILY HISTORY: Family History Problem Relation Age of Onset Cerebral aneurysm Mother Heart failure Father Cancer Sister Cancer Brother Anesthesia problems Neg Hx SOCIAL HISTORY: The patient reports current alcohol use of about 1.0 standard drink of alcohol per week. She reports that she quit smoking about 30 years ago. Her smoking use included cigarettes. She has never used smokeless tobacco. She reports no history of drug use. ALLERGIES: Allergies Allergen Reactions Nsaids (Non-Steroidal Anti-Inflammatory Drug) Other (See Comments) ELEVATED KIDNEY LABS Penicillins Rash Levofloxacin Other (See Comments) Sleeplessness restless legs Antihistamine 12 Hour Other (See Comments) restlessness Diphenhydramine Hcl Other (See Comments) restlessness Ezetimibe Other (See Comments) unknown Gemfibrozil Other (See Comments) unknown Histamine H2 Inhibitors Other (See Comments) restlessness Phenergan [Promethazine] Anxiety JITTERY Propoxyphene N-Acetaminophen Other (See Comments) JITTERY NOT ALLERGIC TO TYLENOL MEDICATIONS: Current Outpatient Medications: acetaminophen (TYLENOL EXTRA STRENGTH) 500 mg tablet, Take 2 tablets (1,000 mg total) by mouth every 6 (six) hours as needed for pain., Disp: 30 tablet, Rfl: 0 acidophilus-pectin, citrus 25 million cell -100 mg tablet, Take 1 tablet by mouth daily with breakfast., Disp: , Rfl: ascorbic acid, vitamin C, (VITAMIN C) 250 mg tablet, Take 1 tablet (250 mg total) by mouth in the morning and 1 tablet (250 mg total) before bedtime., Disp: , Rfl: bismuth subsalicylate (PEPTO-BISMOL ORAL), daily as needed. TAKES 3 TABS MORNING AND 3 TABS NIGHTLY, Disp: , Rfl: budesonide EC (ENTOCORT EC) 3 mg 24 hr capsule, Take 1 capsule (3 mg total) by mouth in the morning., Disp: , Rfl: cholecalciferol, vitamin D3, (D3-50 CHOLECALCIFEROL ORAL), Take 1 tablet by mouth in the morning., Disp: , Rfl: clopidogreL (PLAVIX) 75 mg tablet, Take 1 tablet (75 mg total) by mouth in the morning. Indications: treatment to prevent a heart attack., Disp: , Rfl: estradioL (ESTRACE) 0.01 % (0.1 mg/gram) vaginal cream, as needed., Disp: , Rfl: loperamide (IMODIUM A-D) 2 mg tablet, Take 2 tablets (4 mg total) by mouth as needed., Disp: , Rfl: melatonin 10 mg tablet, Take 1 tablet by mouth nightly., Disp: , Rfl: nebivoloL (BYSTOLIC) 5 mg tablet, Take 2 tablets (10 mg total) by mouth in the morning. Indications: high blood pressure., Disp: , Rfl: pantoprazole (PROTONIX) 40 mg EC tablet, Take 20 mg by mouth in the morning. Indications: gastroesophageal reflux disease., Disp: , Rfl: simvastatin (ZOCOR) 40 mg tablet, Take 1 tablet (40 mg total) by mouth in the morning. Indications:excessive fat in the blood., Disp: , Rfl: spironolactone (ALDACTONE) 25 mg tablet, Take 2 tablets (50 mg total) by mouth in the morning. Indications: high blood pressure., Disp: , Rfl: zinc 50 mg tablet tablet, Take 1 tablet (50 mg total) by mouth in the morning., Disp: , Rfl: aspirin 81 mg, Take 1 tablet (81 mg total) by mouth in the morning., Disp: , Rfl: H-CHLOR 12 0.125 % solution external solution, APPLY TO RIGHT LOWER LEG WOUND DAILY (Patient not taking: Reported on 12/30/2023), Disp: , Rfl: mupirocin (BACTROBAN) 2 % ointment, APPLY TO LEG WOUND DAILY (Patient not taking: Reported on 12/30/2023), Disp: , Rfl: naloxone (NARCAN) 4 mg/actuation spray,non-aerosol nasal spray, Administer 1 spray (4 mg total) into alternating nostrils as needed for opioid reversal for up to 2 doses. (Patient not taking: Reported on 12/30/2023), Disp: 2 each, Rfl: 0 vancomycin (VANCOCIN) 125 mg capsule, Take 1 capsule (125 mg total) by mouth in the morning. PREVENT UTI. (Patient not taking: Reported on 12/24/2023), Disp: , Rfl: REVIEW OF SYSTEMS: Review of Systems Constitutional: Negative for fever. HENT: Positive for dental problem (Denture) and hearing loss. Negative for rhinorrhea and sore throat. Eyes: Negative for visual disturbance. Respiratory: Negative for cough, chest tightness and shortness of breath. Cardiovascular: Negative for chest pain, leg swelling and chest discomfort. Gastrointestinal: Positive for diarrhea. Negative for nausea, vomiting, abdominal pain, constipation, blood in stool and abdominal distention. Genitourinary: Negative for dysuria, hematuria and difficulty urinating. Musculoskeletal: Positive for arthralgias. Negative for myalgias, back pain and neck pain. Claudication Skin: Positive for wound (RLE ulcer). Negative for rash. Neurological: Negative for dizziness, seizures and headaches. Hematological: Bruises/bleeds easily (ASA/Plavix). Psychiatric/Behavioral: Negative for agitation, behavioral problems and confusion. VITAL SIGNS: BP (!) 206/80 Pulse 56 Temp 36.1 C (96.9 F) (Temporal) Resp 18 Ht 177.8 cm (5' 10 ) Wt 65.4 kg (144 lb 2.9 oz) SpO2 97% BMI 20.69 kg/m PHYSICAL EXAM: Physical Exam Vitals reviewed. Constitutional: General: She is not in acute distress. Appearance: She is well-developed. HENT: Head: Normocephalic and atraumatic. Right Ear: External ear normal. Left Ear: External ear normal. Nose: No rhinorrhea. Mouth/Throat: Mouth: Mucous membranes are moist. Eyes: General: No scleral icterus. Cardiovascular: Rate and Rhythm: Normal rate and regular rhythm. Heart sounds: Normal heart sounds. No murmur heard. Pulmonary: Effort: Pulmonary effort is normal. Breath sounds: Normal breath sounds. No wheezing or rhonchi. Abdominal: General: Bowel sounds are normal. Palpations: Abdomen is soft. Musculoskeletal: Cervical back: Neck supple. Lymphadenopathy: Cervical: No cervical adenopathy. Skin: General: Skin is warm and dry. Neurological: Mental Status: She is alert and oriented to person, place, and time. Psychiatric: Behavior: Behavior normal. PERTINENT TESTING AVAILABLE IN [facility] (WITHIN THE PAST 2 YEARS): EK11/10/2023 [facility]: *Pending cardiology interpretation* Echo: No results found. Stress test: No results found. Holter: No results found. Cardiac catheterization: No results found. Carotids: No results found. Pulmonary function testing: No results found. RECENT LABS: Lab Results Component Value Date WBC 8.7 12/22/2023 HGB 9.3 (L) 12/22/2023 HCT 27.2 (L) 12/22/2023 PLT 288 12/22/2023 INR 1.0 12/22/2023 PTT 28 12/22/2023 SODIUM 140 12/22/2023 K 4.9 12/22/2023 CL 108 12/22/2023 CO2 24 12/22/2023 CALCIUM 9.5 12/22/2023 GLU 96 12/22/2023 CREATININE 1.26 (H) 12/22/2023 BUN 28 (H) 12/22/2023 GFR 52 (L) 05/27/2016 GFR >60 05/27/2016 EGFR 41 (L) 12/22/2023 *Please note that labs listed above are the most recent lab values available in [facility] at the time the H&P was signed. *Per department policy, chart managers to follow and report testing. ASSESSMENT / DIAGNOSIS: Right Lower Extremity Ischemia, Arterial Occlusive Disease PLAN: Delicia Hsu is scheduled for Endarterectomy Femoral (Iliofemoral Endarterectomy) - Right Angioplasty Iliac - Right Bypass Artery Femoral Popliteal - Right with Dr. Kirkland on 01/01/2024. TIFFANIE Ribera 12/31/23 0955 documented in [facility] encounterC[facility] Instructions* Patient Instructions* Chaya Monaco RN - 12/31/2023 8:30 AM EST Your surgery/procedure is scheduled at [facility] on 12/31 at 1200 Arrival Time10:00 [facility] Address: [address] [place] [address]. [place] [address] Park in [address] Parking lot located on [facility]. Report to the Entrance B. Check in at the information desk the surgery. The waiting room located on the second floor. If you have any questions prior to surgery, please call Pre-Admission Clinic at [phone] between 7:30 am and 4:30 pm Wednesday through Wednesday. If you have questions the morning of surgery, please call the Pre-op Department at [phone]. Notify your SURGEON if you develop any illness such as a cold, cough, fever, sore throat, vomiting or are hospitalized between now and your surgery. Medication Instructions (Do not stop your medications without consulting the prescribing physician). Take the following medications the morning of surgery with a sip of water: per office Diabetic or Weight loss medications: N/A Take inhalers as prescribed the morning of surgery. Due to the risk associated with these medications. If these medications are not held per instruction below, your surgery is at an increased risk for cancellation. SGLT2 Medications- Hold 3 days prior to surgery: Jardiance, Empagliflozin, Farxiga, Dapagliflozin, Invokana, Canagliflozin, Trijardy, Synjardy GLP-1 Medications (Injection or Pill)- If taken daily hold day of surgery. If taken weekly, hold 1 week prior to surgery: Adlyxin, Byetta, Bydureon, Ozempic, Rybelsus,Trulicity, Victoza, Wegovy, Lixisenatide, Exenatide, Semaglutide, Dulaglutide, Liraglutide GIP/GLP-1(Injection or Pill)- If taken daily hold day of surgery. If taken weekly, hold 1 week prior to surgery: Mounjaro . Blood thinners: Please contact your prescribing [...] specifically instructed by your surgeon to hold. STOPtaking all herbal products/teas one week prior to [...] piercings ,hair extensions that contain metal, nail samoan, make-up, and contact lens. You may brush [...] items and leave them in the car untilyou are taken to your room after surgery. [...] following some types of surgeries involving the eyes,ears, sinuses and throat. Always follow your doctor's [...] RIGHTS AND RESPONSIBILITIES As a patient at [facility], you have the right to: Receive medical care and be informed of who is taking care of you Be treated with dignity and respect Have a family member/national account representative of choice and your physician notified of your admission Receive information and actively participate in decisions about your care and treatment Refuse care, treatment and services Decide who may provide your support and speak for you Access shinto and spiritual services Participate in ethical issues [...] of hospital charges and payment methods Patient/patient national account representative responsibilities are to: Provide information about health status to facilitate care, treatment and services Follow the treatment, plan, keep appointments and speak up when you do not understand the plan Respect the rights of other patients and healthcare personnel Follow organizational rules and regulations that support quality care and a safe environment Fulfill financial obligations as promptly as possible documented in this encounterC[facility]11-[facility]-2024 Evaluation + Plan note* Assessment & Plan Note - Deuce Kirkland MD - 12/30/2023 1:22 PM EST Associated Problem(s): 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 Sheis scheduled for Wednesday. [facility] Evaluation + Plan note* Assessment & Plan Note - Deuce Kirkland MD - 12/30/2023 1:22 PM ESTAssociated Problem(s): Venous insufficiency (chronic) (peripheral) I did ultrasound-guided injection sclerotherapy. I discussed with her that she will need a right lower extremity revascularization. I might need to use her vein. If I do not use her vein I will do ligation of her GSV. 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 Sheis scheduled for Wednesday. * Assessment & Plan Note - Deuce Kirkland MD - 12/30/2023 1:22 PM EST Associated Problem(s): Venous insufficiency (chronic) (peripheral) I did ultrasound-guided injection sclerotherapy. I discussed with her that she will need a right lower extremity revascularization. I might need to use her vein. If I do not use her vein I will do ligation of her GSV. documented in this encounterC[facility]11-[facility]-2024 History of Present illness Narrative* Deuce Kirkland MD - 12/30/2023 1:10 PM ESTSummary: MITCH with PVR Images from the original note were not included. To: GYPSY MCMAHON MD HPI: Delicia Hsu is a 88 y.o. 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 She has a venous ulcer. Her MITCH 0.2. She has multilevel occlusive disease. She has significantGSV reflux as well. She mentioned to me that she had open heart surgery in the use her vein in the past. The ultrasound however shows significant GSV reflux in the right. I did ultrasound-guided injection sclerotherapy. I discussed with her doing right iliofemoral endarterectomy fem above-knee pop bypass and iliac stenting. I will ligate the GSV or use it for the bypass. I discussed the risks benefits and alternatives and informed consent was obtained.. Review of Systems: Review of Systems Constitutional: Negative. HENT: Negative. Respiratory: Negative. Cardiovascular: Negative. Gastrointestinal: Negative. Endocrine: Negative. Genitourinary: Negative. Musculoskeletal: Negative. Skin: Negative. Neurological: Negative. Hematological: Negative. Medications: Current Outpatient Medications on File Prior to Visit Medication Sig Dispense Refill acetaminophen (TYLENOL EXTRA STRENGTH) 500 mg tablet Take 2 tablets (1,000 mg total) by mouth every6 (six) hours as needed for pain. 30 tablet 0 acidophilus-pectin, citrus 25 million cell -100 mg tablet Take 1 tablet by mouth daily with breakfast. ascorbic acid, vitamin C, (VITAMIN C) 250 mg tablet Take 1 tablet (250 mg total) by mouth in the morning and 1 tablet (250 mg total) before bedtime. bismuth subsalicylate (PEPTO-BISMOL ORAL) daily as needed. [...] mg total) by mouth in the morning. Indications:treatment to prevent a heart attack. estradioL (ESTRACE) 0.01 % (0.1 mg/gram) vaginal cream as needed. loperamide (IMODIUM A-D) 2 mg tablet Take 2 tablets (4 mg total) by mouth as needed. melatonin 10 mg tablet Take 1 tablet by mouth nightly. nebivoloL (BYSTOLIC) 5 mg tablet Take 2 tablets (10 mg total) by mouth in the morning. [...] in the morning. Indications: high blood pressure. zinc 50 mg tablet tablet Take 1 tablet (50 mg total) by mouth in the morning. aspirin 81 mg Take 1 tablet (81 mg total) by mouth in the morning. H-CHLOR 12 0.125 % solution external solution APPLY TO RIGHT LOWER LEG WOUND DAILY (Patient not taking: Reported on 12/30/2023) mupirocin (BACTROBAN) 2 % ointment APPLY TO LEG WOUND DAILY (Patient not taking: Reported on 12/30/2023) naloxone (NARCAN) 4 mg/actuation spray,non-aerosol nasal spray Administer 1 spray (4 mg total) intoalternating nostrils as needed for opioid reversal for up to 2 doses. (Patient not taking: Reportedon 12/30/2023) 2 each 0 vancomycin (VANCOCIN) 125 mg capsule Take 1 capsule (125 mg total) by mouth in the morning. PREVENTUTI. (Patient not taking: Reported on 12/24/2023) No current facility-administered medications on file prior [...] loss) Hyperlipidemia Hypertension PAD (peripheral artery disease) ([facility]) Peptic ulceration BLEEDING ULCER ADMITTED 2018 X13 DAYS TATYANA Rash Skin cancer REMOVED Sleep apnea no cpap Thin skin Urinary tract infection CHRONIC, SEES ID EVERY 3 MONTHS Visual impairment Wound of ankle RIGHT SINCE 07/2023 Past Surgical History: Past Surgical History: Procedure Laterality Date ABDOMINAL SURGERY ANGIOPLASTY ILIAC-ILIAC SHOCKWAVE INTRAVASCULAR LITHOTRIPSY Right 11/18/2023 Performed by Deuce Kirkland MD at [facility] SPECIAL PROC ARTHROSCOPY SHOULDER W/ OPEN ROTATOR CUFF REPAIR Left 2011 CARDIAC SURGERY CATARACT EXTRACTION CHOLECYSTECTOMY N/A 2008 CORONARY ARTERY BYPASS GRAFT 1998 X5 EYE SURGERY HERNIA REPAIR N/A 03/2012 HIP FRACTURE SURGERY Left 05/2017 HYSTERECTOMY N/A JOINT REPLACEMENT lower ext angiogram Bilateral 01/07/2022 Performed by Taryn Belle MD at [facility] CARDIAC CATH LABS SCLEROTHERAPY LOWER EXTREMITY Right 12/24/2023 Performed by Deuce Kirkland MD at [facility] TOTAL HIP ARTHROPLASTY Left 2020 VASCULAR SURGERY angiogram Social and Family History: [...] the assessment and plan below. Vitals: BP 186/68 Pulse 65 Wt 64 kg (141 lb) BMI 20.23 kg/m Body mass index is 20.23 kg/m . Physical Exam: Physical Exam Constitutional: [...] content normal. Judgment: Judgment normal. 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 Sheis scheduled for Wednesday. Venous insufficiency (chronic) (peripheral) Current Assessment & Plan I did ultrasound-guided injection sclerotherapy. I discussed with her that she will need a right lower extremity revascularization. I might need to use her vein. If I do not use her vein I will do ligation of her GSV. Delicia was seen today for follow-up. 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 While intending to generate a timely document that accurately reflects the content of the visit, no guarantee can be provided that every grammatical or spelling mistake has been or will be identified or corrected. Thank you for your understanding. documented in this encounterC[facility]11-14-2024 Miscellaneous Notes* Perioperative Nursing Note - Bushra Cole RN - 12/23/2023 3:00 PM EST Preoperative Education Checklist- General Surgery date: 12/23/14 Surgery time: 1400 Arrival time: 1200 1. Bring a photo ID and your insurance card with you the day of surgery. You will check in at the main lobby of the [facility]- registration desk is straight ahead as soon as you walk in. Tell them you are here for surgery. 2. If you have a Living Will/Durable Power of [employer] for Health Care that is not on file here, please bring a copy the day of surgery. 3. Please shower/bathe the night before surgery with the provided soap or wipes. Do not shower the morning of surgery- you will do use wipes when you arrive here at the hospital before getting into your surgical gown. Do not shave the area of your procedure for 2 days prior to your surgery. 4. NO powder, lotion, perfume/cologne, aftershave, make-up, deodorant, or hair products after you have bathed. 5. NO nail samoan/acrylic on at least one finger. If you are having a hand, wrist or foot surgery then all nail samoan and artificial/acrylic nails must be removed from that hand or foot. 6. Avoid ALL Aspirin and non-steroidal anti-inflammatory drugs and certain vitamins (Ibuprofen, Advil, Aleve, Excedrin, Meloxicam, Celebrex, fish/krill oil, etc.) for 7 days prior to surgery as instructed by your surgeon and/or your prescribing doctor. Tylenol IS ALLOWED. If you are on Ticlid, Xarelto, Eliquis, Pradaxa, Plavix or Coumadin, please check with your prescribing doctor for instructions for when to stop them. 7. If you use an inhaler, continue to use it routinely. 8. Nothing to eat or drink (not even water, gum, mints, or hard candy!) AFTER midnight prior to your surgery. 9. Take only medications that you are instructed to on the morning of surgery with a TINY SIP OF WATER. 10. Choose a responsible adult that will be able to drive you home when you are discharged from your hospital stay for your surgery and can stay with you in your home for 24 hours after your procedure. You must NOT drive any vehicle or operate any machinery for 24 hours after surgery. 11. When you dress for your appointment, please wear loose fitting clothing that is appropriate to accommodate your surgical area procedure. BRING WITH YOU ANY DEVICES YOU MAY NEED: VERONICA hose, ice machine, sling/swath, brace or special shoe, oversized zip-up or button up shirt, CPAP machine if staying overnight. 12. Do NOT wear jewelry, watches, or any piercings or metal for surgery- leave these valuables and money at home. 13. Do NOT wear contact lenses for surgery- glasses are okay if needed. 14. The anesthesiologist will talk with you the day of surgery and will ask you to sign a Consent Form. 15. Refrain from smoking or any type of tobacco use for at least 8 hours and marijuana for 24 hoursprior to arrival for your surgery. 16. If a GREEN BLOOD band is given to you, please bring it with you for the day of surgery. 17. Notify your surgeon if you develop any illness before your surgery. 18. If you are staying overnight, please DO NOT BRING your home medications with you. 19. If you have any questions prior to surgery, please call the Preadmission Testing office at [phone], Mon.-Fri. 7 a.m.-3 p.m. Leave a voicemail if needed. Pre-Surgery Instructions: Medication Instructions acetaminophen (TYLENOL EXTRA STRENGTH) 500 mg tablet Stop taking 0 days prior to procedure acetaminophen-codeine (TYLENOL with CODEINE #4) 300-60 mg per tablet Stop taking 0 days prior to procedure acidophilus-pectin, citrus 25 million cell -100 mg tablet Stop taking 0 days prior to procedure ascorbic acid, vitamin C, (VITAMIN C) 250 mg tablet Stop taking 0 days prior to procedure aspirin 81 mg Stop taking 0 days prior to procedure bismuth subsalicylate (PEPTO-BISMOL ORAL) Stop taking 0 days prior to procedure budesonide EC (ENTOCORT EC) 3 mg 24 hr capsule Stop taking 0 days prior to procedure cholecalciferol, vitamin D3, (D3-50 CHOLECALCIFEROL ORAL) Stop taking 0 days prior to procedure clopidogreL (PLAVIX) 75 mg tablet Check with prescribing doctor for instructions estradioL (ESTRACE) 0.01 % (0.1 mg/gram) vaginal cream Stop taking 0 days prior to procedure H-CHLOR 12 0.125 % solution external solution Stop taking 0 days prior to procedure loperamide (IMODIUM A-D) 2 mg tablet Stop taking 0 days prior to procedure melatonin 10 mg tablet Stop taking 0 days prior to procedure mupirocin (BACTROBAN) 2 % ointment Stop taking 0 days prior to procedure naloxone (NARCAN) 4 mg/actuation spray,non-aerosol nasal spray Stop taking 0 days prior to procedure nebivoloL (BYSTOLIC) 5 mg tablet Take morning of procedure oxyCODONE (ROXICODONE) 5 mg immediate release tablet Stop taking 0 days prior to procedure pantoprazole (PROTONIX) 40 mg EC tablet Take morning of procedure simvastatin (ZOCOR) 40 mg tablet Stop taking 0 days prior to procedure spironolactone (ALDACTONE) 25 mg tablet Stop taking 0 days prior to procedure vancomycin (VANCOCIN) 125 mg capsule Stop taking 0 days prior to procedure zinc 50 mg tablet tablet Stop taking 0 days prior to procedure documented [facility] Nurse Note* Perioperative Nursing Note - Bushra Cole RN - 12/23/2023 3:00 PM EST Preoperative Education Checklist- General Surgery date: 12/23/14 Surgery time: 1400 Arrival time: 1200 1. Bring a photo ID and your insurance card with you the day of surgery. You will check in at the main lobby of the [facility]- registration desk is straight ahead as soon as you walk in. Tell them you are here for surgery. 2. If you have a Living Will/Durable Power of Model Builder for Health Care that is not on file here, please bring a copy the day of surgery. 3. Please shower/bathe the night before surgery with the provided soap or wipes. Do not shower the morning of surgery- you will do use wipes when you arrive here at the hospital before getting into your surgical gown. Do not shave the area of your procedure for 2 days prior to your surgery. 4. NO powder, lotion, perfume/cologne, aftershave, make-up, deodorant, or hair products after you have bathed. 5. NO nail samoan/acrylic on at least one finger. If you are having a hand, wrist or foot surgery then all nail samoan and artificial/acrylic nails must be removed from that hand or foot. 6. Avoid ALL Aspirin and non-steroidal anti-inflammatory drugs and certain vitamins (Ibuprofen, Advil, Aleve, Excedrin, Meloxicam, Celebrex, fish/krill oil, etc.) for 7 days prior to surgery as instructed by your surgeon and/or your prescribing doctor. Tylenol IS ALLOWED. If you are on Ticlid, Xarelto, Eliquis, Pradaxa, Plavix or Coumadin, please check with your prescribing doctor for instructions for when to stop them. 7. If you use an inhaler, continue to use it routinely. 8. Nothing to eat or drink (not even water, gum, mints, or hard candy!) AFTER midnight prior to your surgery. 9. Take only medications that you are instructed to on the morning of surgery with a TINY SIP OF WATER. 10. Choose a responsible adult that will be able to drive you home when you are discharged from your hospital stay for your surgery and can stay with you in your home for 24 hours after your procedure. You must NOT drive any vehicle or operate any machinery for 24 hours after surgery. 11. When you dress for your appointment, please wear loose fitting clothing that is appropriate to accommodate your surgical area procedure. BRING WITH YOU ANY DEVICES YOU MAY NEED: VERONICA hose, ice machine, sling/swath, brace or special shoe, oversized zip-up or button up shirt, CPAP machine if staying overnight. 12. Do NOT wear jewelry, watches, or any piercings or metal for surgery- leave these valuables and money at home. 13. Do NOT wear contact lenses for surgery- glasses are okay if needed. 14. The anesthesiologist will talk with you the day of surgery and will ask you to sign a Consent Form. 15. Refrain from smoking or any type of tobacco use for at least 8 hours and marijuana for 24 hoursprior to arrival for your surgery. 16. If a GREEN BLOOD band is given to you, please bring it with you for the day of surgery. 17. Notify your surgeon if you develop any illness before your surgery. 18. If you are staying overnight, please DO NOT BRING your home medications with you. 19. If you have any questions prior to surgery, please call the Preadmission Testing office at [phone], Mon.-Fri. 7 a.m.-3 p.m. Leave a voicemail if needed. Pre-Surgery Instructions: Medication Instructions acetaminophen (TYLENOL EXTRA STRENGTH) 500 mg tablet Stop taking 0 days prior to procedure acetaminophen-codeine (TYLENOL with CODEINE #4) 300-60 mg per tablet Stop taking 0 days prior to procedure acidophilus-pectin, citrus 25 million cell -100 mg tablet Stop taking 0 days prior to procedure ascorbic acid, vitamin C, (VITAMIN C) 250 mg tablet Stop taking 0 days prior to procedure aspirin 81 mg Stop taking 0 days prior to procedure bismuth subsalicylate (PEPTO-BISMOL ORAL) Stop taking 0 days prior to procedure budesonide EC (ENTOCORT EC) 3 mg 24 hr capsule Stop taking 0 days prior to procedure cholecalciferol, vitamin D3, (D3-50 CHOLECALCIFEROL ORAL) Stop taking 0 days prior to procedure clopidogreL (PLAVIX) 75 mg tablet Check with prescribing doctor for instructions estradioL (ESTRACE) 0.01 % (0.1 mg/gram) vaginal cream Stop taking 0 days prior to procedure H-CHLOR 12 0.125 % solution external solution Stop taking 0 days prior to procedure loperamide (IMODIUM A-D) 2 mg tablet Stop taking 0 days prior to procedure melatonin 10 mg tablet Stop taking 0 days prior to procedure mupirocin (BACTROBAN) 2 % ointment Stop taking 0 days prior to procedure naloxone (NARCAN) 4 mg/actuation spray,non-aerosol nasal spray Stop taking 0 days prior to procedure nebivoloL (BYSTOLIC) 5 mg tablet Take morning of procedure oxyCODONE (ROXICODONE) 5 mg immediate release tablet Stop taking 0 days prior to procedure pantoprazole (PROTONIX) 40 mg EC tablet Take morning of procedure simvastatin (ZOCOR) 40 mg tablet Stop taking 0 days prior to procedure spironolactone (ALDACTONE) 25 mg tablet Stop taking 0 days prior to procedure vancomycin (VANCOCIN) 125 mg capsule Stop taking 0 days prior to procedure zinc 50 mg tablet tablet Stop taking 0 days prior to procedure flaveit [id number] History of Present illness Narrative* Sunny Ingram NP - 12/14/2023 1:00 PM EST Images from the original note were not included. Chief Complaint Patient presents with Left Hip - Follow-up HISTORY OF PRESENT ILLNESS: Delicia Hsu is an 88 y.o. @ female. Left hip: 4 years 2 1/2 months (09/25/19) s/p LT GAYLA with removal of deep hardware. Walking with a walker. States she has been having hip pain, lateral and into groin. Notes there is a bump laterally. She also does have a sore on her RT lower leg, has been favoring it and putting more weight on her LT leg. Taking TYL. Does feel like her hip might give out on her at times. ALLERGIES: Allergies Allergen Reactions Diphenhydramine Unknown Ezetimibe Unknown Gemfibrozil Unknown H2 Antagonists Histamine Other Reaction(s): Other, Other: See Comments it wires me it wires me Levofloxacin Nsaids Unknown Promethazine Unknown and Other Made her shake very badly Propoxyphene Unknown HOME MEDICATIONS: Current Outpatient Medications Medication Instructions acetaminophen (Tylenol) 325 MG tablet Every 6 hours acetaminophen (TYLENOL) 1,000 mg, Oral, Every 6 hours PRN alosetron (Lotronex) 0.5 MG tablet TAKE 1/2 TABLET BY MOUTH EVERYDAY FOR 30 DAYS *HOLD IF CONSTIPATED* bismuth subsalicylate (PEPTO BISMOL) 524 mg, Oral, 4 times daily before meals and nightly budesonide EC (Entocort EC) 3 MG [address] - ER 3 mg capsule,delayed,extended release cholecalciferol (Vitamin D-3) 50 MCG (2000 UT) capsule 1 tablet, Oral, Daily RT estradiol (Estrace) 0.1 MG/GM vaginal cream INSERT 1 GRAM VAGINALLY TWICE A WEEK DIRECTED loperamide (Imodium A-D) 2 MG tablet Oral, 4 times daily PRN melatonin 10 MG tablet 1 tablet, Oral, Nightly Menthol, Topical Analgesic, (Biofreeze) 4 % gel Biofreeze metoprolol succinate XL (TOPROL-XL) 50 mg, Oral, Daily RT Multiple Vitamins-Minerals (multivitamin with minerals) tablet 1 tablet, Oral, Daily pantoprazole (PROTONIX) 40 mg, Oral, Daily RT simvastatin (Zocor) 40 MG tablet take 1 tablet by Oral route every day at bedtime Oral spironolactone (Aldactone) 25 MG tablet spironolactone 25 mg tablet Vedolizumab (ENTYVIO IV) Intravenous zinc 50 mg, Oral, Daily RT PHYSICAL EXAM: Left Hip Exam Tenderness The patient is experiencing tenderness in the lateral. Range of Motion External rotation: 40 Internal rotation: 15 Muscle Strength Abduction: 4/5 Adduction: 4/5 Flexion: 4/5 Other Erythema: absent Sensation: normal Pulse: present Comments: Soft mass felt over greater trochanter that is likely bursa Vitals: There is no height or weight on file to calculate BMI. IMAGING: XR hip left 2 or 3 views Imaging Result: 12/14/2023: AP and lateral of left hip showed acceptable position and alignment of left total hip arthroplasty. There was no evidence of loosening of the acetabular cup or femoral stem. Femoral head was well centered in the acetabular liner without evidence of asymmetric or accelerated wear. There was no gross evidence of fracture and/or dislocation. Impression: Unremarkable left total hip arthroplasty. Sunny Ingram GRANTS AND CONTRACTS ASSISTANT-MANAGER COSMETICS ASSESSMENT: ICD-10-CM 1. Trochanteric bursitis of left hip M70.62 2. Primary osteoarthritis of left hip M16.12 XR hip left 2 or 3 views 3. History of left hip replacement Z96.642 Procedures PLAN: I reviewed xray findings with the patient and her daughter which showed no signs of fracture or loosening of GAYLA. I reviewed exam findings with patient and discussed treatment options, answered questions. I recommend that patient do gentle HEP and follow up in 4 weeks for RCK. If still painful consider CRP, SED rate and bone scan. Questions answered in laymen terms at the bedside. The diagnosis, home exercise plan and any ongoing restrictions/ recommendations reviewed. If unable to be reached in office, I recommend evaluation at nearest Emergency Room if any symptoms worsened or new symptoms develop for requiring urgent evaluation. 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 I discussed with her that we will get a PVR and she may need bilateral iliofemoral endarterectomy and bilateral lower extremity angiogram intervention is a hybrid procedure to improve the blood flow to her legs. [facility]10-[facility] Evaluation + Plan note* Assessment & Plan Note - Deuce Kirkland MD - 12/09/2023 10:39 AM EDTAssociated Problem(s): Venous ulcer of ankle, right (CMS-HCC) Discussed with her doing right GSV ablation and ultrasound-guided injection sclerotherapy For rightlower extremity venous ulcer and significant GSV reflux and varicose veins. We will also do Unna boot and wound care. 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 I discussed with her that we will get a PVR and she may need bilateral iliofemoral endarterectomy and bilateral lower extremity angiogram intervention is a hybrid procedure to improve the blood flow to her legs. * Assessment & Plan Note - Deuce Kirkland MD - 12/09/2023 10:39 AM EDT Associated Problem(s): Venous ulcer of ankle, right ([facility]-HCC) Discussed with her doing right GSV ablation and ultrasound-guided injection sclerotherapy For rightlower extremity venous ulcer and significant GSV reflux and varicose veins. We will also do Unna boot and wound care. documented in this encounterC[facility]10-31-20[facility] History of Present illness Narrative* Deuce Kirkland MD - 12/09/2023 10:00 AM EDT Images from the original note were not included. To: GYPSY MCMAHON MD HPI: Delicia Hsu is a 88 y.o. female with [...] 2 tablets (1,000 mg total) by mouth every6 (six) hours as needed for pain. 30 tablet 0 acetaminophen-codeine (TYLENOL with CODEINE #4) 300-60 mg per tablet Take 1 tablet by mouth every 6(six) hours as needed for pain Indications: pain. [...] mg total) by mouth in the morning. Indications:treatment to prevent a heart attack. estradioL (ESTRACE) [...] mg total) by mouth in the morning. PREVENTUTI. zinc 50 mg tablet tablet Take 1 tablet (50 mg total) by mouth in the morning. naloxone (NARCAN) 4 mg/actuation spray,non-aerosol nasal spray Administer 1 spray (4 mg total) intoalternating nostrils as needed for opioid reversal for up to 2 doses. (Patient not taking: Reportedon 12/09/2023) 2 each 0 oxyCODONE (ROXICODONE) 5 [...] loss) Hyperlipidemia Hypertension PAD (peripheral artery disease) ([facility]) Peptic ulceration BLEEDING ULCER ADMITTED 2018 X13 DAYS TATYANA Rash Skin cancer REMOVED Sleep apnea no cpap Thin skin Urinary tract infection CHRONIC, SEES ID EVERY 3 MONTHS Visual impairment Wound of ankle RIGHT SINCE 07/2023 Past Surgical History: Past Surgical History: Procedure Laterality Date ABDOMINAL SURGERY ANGIOPLASTY ILIAC-ILIAC SHOCKWAVE INTRAVASCULAR LITHOTRIPSY Right 11/18/2023 Performed by Deuce Kirkland MD at [facility] SPECIAL PROC ARTHROSCOPY SHOULDER W/ OPEN ROTATOR CUFF REPAIR Left 2011 CARDIAC SURGERY CATARACT EXTRACTION CHOLECYSTECTOMY N/A 2008 CORONARY ARTERY BYPASS GRAFT 1998 X5 EYE SURGERY HERNIA REPAIR N/A 03/2012 HIP FRACTURE SURGERY Left 05/2017 HYSTERECTOMY N/A JOINT REPLACEMENT lower ext angiogram Bilateral 01/07/2022 Performed by Taryn Belle MD at [facility] CARDIAC CATH LABS TOTAL HIP ARTHROPLASTY Left 2020 VASCULAR SURGERY angiogram Social and Family History: [...] GSV ablation and ultrasound-guided injection sclerotherapy For rightlower extremity venous ulcer and significant GSV reflux and varicose veins Delicia was seen today for acute deep vein thrombosis of left popliteal vein (cms- hcc) and critical limb ischemia of right lower extremity with gangre. 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 While intending to generate a timely document that accurately reflects the content of the visit, no guarantee can be provided that every grammatical or spelling mistake has been or will be identified or corrected. Thank you for your understanding. documented in this encounterBucyrus Community Hospital [id number] Instructions* Pre- Procedure Instructions - Cristine Stone RN - 11/16/2023 8:00 AM EDT Your surgery/procedure is scheduled at [facility] on 11/18/23 at 1500 Arrival Time 1300 [facility] Address: [address] [place] [address] Park in Parking lot located on [facility]. Report to the Entrance B. Check in at the information desk the surgery. The waiting room located on the second floor. If you have any questions prior to surgery, please call Pre-Admission Clinic at [phone] between 7:30 am and 4:30 pm Wednesday through Wednesday. If you have questions the morning of surgery, please call the Pre-op Department at [phone]. Notify your SURGEON if you develop any [...] weekly, hold 1 week prior to surgery: Mounjaro . Blood thinners: Please contact your prescribing [...] specifically instructed by your surgeon to hold. STOPtaking all herbal products/teas one week prior to [...] piercings ,hair extensions that contain metal, nail samoan, make-up, and contact lens. You may brush [...] items and leave them in the car untilyou are taken to your room after surgery. [...] following some types of surgeries involving the eyes,ears, sinuses and throat. Always follow your doctor's [...] RIGHTS AND RESPONSIBILITIES As a patient at [facility], you have the right to: Receive medical care and be informed of who is taking care of you Be treated with dignity and respect Have a family member/national account representative of choice and your physician notified of your admission Receive information and actively participate in decisions about your care and treatment Refuse care, treatment and services Decide who may provide your support and speak for you Access shinto and spiritual services Participate in ethical issues [...] of hospital charges and payment methods Patient/patient national account representative responsibilities are to: Provide information about health status to facilitate care, treatment and services Follow the treatment, plan, keep appointments and speak up when you do not understand the plan Respect the rights of other patients and healthcare personnel Follow organizational rules and regulations that support quality care and a safe environment Fulfill financial obligations as promptly as possible [facility]10-08-[facility] Miscellaneous Notes* Perioperative Nursing Note - Cristine Stone RN - 11/16/2023 8:00 AM EDT CARDIAC CLEARANCE NOTED INTERMEDIATE NON-PROHIBITIVE RISK FOR CARDIOVASCULAR COMPLICATIONS . NOTE FORM KYREE FLETCHER NP 11/10/23 FOUND IN MEDIA * Pre-Procedure Instructions - Cristine Stone RN - 11/16/2023 8:00 AM EDT Your surgery/procedure is scheduled at [facility] on 11/18/23 at 1500 Arrival Time 1300 [facility] Address: [address] [place] [address]. [place] [address] Park in [address] Parking lot located on [facility]. Report to the Entrance B. Check in at the information desk the surgery. The waiting room located on the second floor. If you have any questions prior to surgery, please call Pre-Admission Clinic at [phone] between 7:30 am and 4:30 pm Wednesday through Wednesday. If you have questions the morning of surgery, please call the Pre-op Department at [phone]. Notify your SURGEON if you develop any [...] specifically instructed by your surgeon to hold. STOPtaking all herbal products/teas one week prior to [...] piercings ,hair extensions that contain metal, nail samoan, make-up, and contact lens. You may brush [...] items and leave them in the car untilyou are taken to your room after surgery. [...] following some types of surgeries involving the eyes,ears, sinuses and throat. Always follow your doctor's [...] RIGHTS AND RESPONSIBILITIES As a patient at [facility], you have the right to: Receive medical care and be informed of who is taking care of you Be treated with dignity and respect Have a family member/national account representative of choice and your physician notified of your admission Receive information and actively participate in decisions about your care and treatment Refuse care, treatment and services Decide who may provide your support and speak for you Access shinto and spiritual services Participate in ethical issues [...] of hospital charges and payment methods Patient/patient national account representative responsibilities are to: Provide information about health status to facilitate care, treatment and services Follow the treatment, plan, keep appointments and speak up when you do not understand the plan Respect the rights of other patients and healthcare personnel Follow organizational rules and regulations that support quality care and a safe environment Fulfill financial obligations as promptly as possible documented in this encounterC[facility]10-[facility] Nurse Note* Perioperative Nursing Note - Cristine Stone RN - 11/16/2023 8:00 AM EDT CARDIAC CLEARANCE NOTED INTERMEDIATE NON-PROHIBITIVE RISK FOR CARDIOVASCULAR COMPLICATIONS . NOTE FORM KYREE FLETCHER NP 11/10/[address]IA [facility] Pinocular [id number] NotePt here for a one year follow up. Pt denies sob, chest pain, palpatations. Review of Systems Cardiovascular: Positive for leg swelling. Gastrointestinal: Positive for diarrhea. All other systems reviewed and are negative.[facility] 11-09-2023 NoteCardiovascular Medicine [facility] SUBJECTIVE Chief Complaint Patient presents with Pre-op [...] Rfl: miscellaneous medical supply (Blood Pressure Cuff) [facility] [place], 1 kit in [...] % 14.7 % monocy (more content not included)...[facility] 10-27-2023 Instructions* Pre-Procedure Instructions - Cristine Stone RN - 10/27/2023 12:45 PM EDT Your surgery/procedure is scheduled at [facility] on 11/05/23 at 1:30PM Arrival Time 11:30AM [facility] Address: [address] [place] [address] Park in P1 Parking lot located on [facility]. Report to the Entrance B. Check in at the information desk the surgery. The waiting room located on the second floor. If you have any questions prior to surgery, please call Pre-Admission Clinic at [phone] between 7:30 am and 4:30 pm Wednesday through Wednesday. If you have questions the morning of surgery, please call the Pre-op Department at [phone]. Notify your SURGEON if you develop any [...] weekly, hold 1 week prior to surgery: Mounjaro . Blood thinners: Please contact your prescribing [...] specifically instructed by your surgeon to hold. STOPtaking all herbal products/teas one week prior to [...] piercings ,hair extensions that contain metal, nail samoan, make-up, and contact lens. You may brush [...] items and leave them in the car untilyou are taken to your room after surgery. [...] following some types of surgeries involving the eyes,ears, sinuses and throat. Always follow your doctor's [...] RIGHTS AND RESPONSIBILITIES As a patient at [facility], you have the right to: Receive medical care and be informed of who is taking care of you Be treated with dignity and respect Have a family member/national account representative of choice and your physician notified of your admission Receive information and actively participate in decisions about your care and treatment Refuse care, treatment and services Decide who may provide your support and speak for you Access shinto and spiritual services Participate in ethical issues [...] of hospital charges and payment methods Patient/patient national account representative responsibilities are to: Provide information about health status to facilitate care, treatment and services Follow the treatment, plan, keep appointments and speak up when you do not understand the plan Respect the rights of other patients and healthcare personnel Follow organizational rules and regulations that support quality care and a safe environment Fulfill financial obligations as promptly as possible [facility]09-18-2024 Miscellaneous Notes* Pre-Procedure Instructions - Cristine Stone RN - 10/27/2023 12:45 PM EDT Your surgery/procedure is scheduled at [facility] on 11/05/23 at 1:30PM Arrival Time 11:30AM [facility] Address: [address] [place] [address] Park in [address] Parking lot located on [facility]. Report to the Entrance B. Check in at the information desk the surgery. The waiting room located on the second floor. If you have any questions prior to surgery, please call Pre-Admission Clinic at [phone] between 7:30 am and 4:30 pm Wednesday through Wednesday. If you have questions the morning of surgery, please call the Pre-op Department at [phone]. Notify your SURGEON if you develop any [...] specifically instructed by your surgeon to hold. STOPtaking all herbal products/teas one week prior to [...] piercings ,hair extensions that contain metal, nail samoan, make-up, and contact lens. You may brush [...] items and leave them in the car untilyou are taken to your room after surgery. [...] following some types of surgeries involving the eyes,ears, sinuses and throat. Always follow your doctor's [...] RIGHTS AND RESPONSIBILITIES As a patient at [facility], you have the right to: Receive medical care and be informed of who is taking care of you Be treated with dignity and respect Have a family member/national account representative of choice and your physician notified of your admission Receive information and actively participate in decisions about your care and treatment Refuse care, treatment and services Decide who may provide your support and speak for you Access shinto and spiritual services Participate in ethical issues [...] of hospital charges and payment methods Patient/patient national account representative responsibilities are to: Provide information about health status to facilitate care, treatment and services Follow the treatment, plan, keep appointments and speak up when you do not understand the plan Respect the rights of other patients and healthcare personnel Follow organizational rules and regulations that support quality care and a safe environment Fulfill financial obligations as promptly as possible [facility] + Plan note* Assessment & Plan Note - Deuce Kirkland MD - 10/14/2023 11:20 AM EDT Associated Problem(s): Venous ulcer of right leg ([facility]) We will get venous reflux ultrasound. We will proceed with arterial revascularization followed by venous intervention and Unna boot. [facility] Miscellaneous Notes* Assessment & Plan Note - Deuce Kirkland MD - 10/14/2023 11:20 AM EDTAssociated Problem(s): Venous ulcer of right leg (CMS-HCC) We will get venous reflux ultrasound. We will proceed with arterial revascularization followed by venous intervention and Unna boot. 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 Iliac shockwave intravascular lithotripsy and stenting with Right lower extremity angiogram and intervention. 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 Iliac shockwave intravascular lithotripsy and stenting with Right lower extremity angiogram and intervention. I discussed with her that she may need a femorofemoral bypass with femoral endarterectomy if were not able to cross this lesion.We will get cardiac risk stratification simultaneously because of that [facility] History of Present illness Narrative* Deuce Kirkland MD - 10/14/2023 10:10 AM EDT Images from the original note were not included. To: GYPSY MCMAHON MD HPI: Delicia Hsu is a 88 y.o. female with Multilevel bilateral lower extremity occlusive disease. She has nonhealing venous ulcer on the right side. She has bilateral venous insufficiency. 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 She does have common femoral disease bilaterally. I discussed with her that the ideal operation would be bilateral iliofemoral endarterectomy iliac stenting and right lower extremity angiogram and intervention.Because of her age comorbidities we thought a reasonable option is to start with an angiogram and see if we can optimize her blood flow in the right lower extremity that way.We will get cardiac risk stratification in the meanwhile.If you are not successful at crossing this lesion and that is about 5% to 10% chance because of the nature of the lesion then we will proceed with bilateral iliofemoral endarterectomy and iliac stenting and angiogram after cardiac risk stratification and optimization.. Of note she has combined venous and arterial multilevel disease. These are usually the most complexlimb salvage cases however I do believe she has a Reasonable chance of arterial revascularization venous intervention and healing this wound. Review of Systems: Review of Systems Constitutional: Negative. HENT: Negative. Respiratory: Negative. Cardiovascular: Negative. Gastrointestinal: Negative. Endocrine: Negative. Genitourinary: Negative. Musculoskeletal: Negative. Skin: Negative. Neurological: Negative. Hematological: Negative. Medications: Current Outpatient Medications on File Prior to Visit Medication Sig Dispense Refill acetaminophen-codeine (TYLENOL with CODEINE #4) 300-60 mg per tablet Take 1 tablet by mouth every 4(four) hours as needed for pain Indications: pain. ascorbic acid, vitamin C, (VITAMIN C) 250 mg tablet Take 1 tablet (250 mg total) by mouth in the morning and 1 tablet (250 mg total) before bedtime. bismuth subsalicylate (PEPTO-BISMOL ORAL) Refills(s) 0 budesonide EC (ENTOCORT EC) 3 mg 24 hr capsule Take 1 capsule (3 mg total) by mouth in the morning. cholecalciferol, vitamin D3, (D3-50 CHOLECALCIFEROL ORAL) Take 1 tablet by mouth in the morning. clopidogreL (PLAVIX) 75 mg tablet estradioL (ESTRACE) 0.01 % (0.1 mg/gram) vaginal cream loperamide (IMODIUM A-D) 2 mg tablet Take 2 tablets (4 mg total) by mouth in the morning and at bedtime. melatonin 10 mg tablet Take 1 tablet by mouth nightly. metoprolol succinate XL (TOPROL XL) 50 mg 24 hr tablet Take 1 tablet (50 mg total) by mouth in the morning. pantoprazole (PROTONIX) 40 mg EC tablet Take 1 tablet (40 mg total) by mouth in the morning. simvastatin (ZOCOR) 40 mg tablet Take 1 tablet (40 mg total) by mouth in the morning and 1 tablet (40 mg total) before bedtime. spironolactone (ALDACTONE) 25 mg tablet Take 1 tablet (25 mg total) by mouth in the morning. zinc 50 mg tablet tablet Take 1 tablet (50 mg total) by mouth in the morning. acetaminophen (TYLENOL EXTRA STRENGTH) 500 mg tablet Take 2 tablets (1,000 mg total) by mouth every6 (six) hours as needed for pain. (Patient not taking: Reported on 06/17/2023) 30 tablet 0 alosetron (LOTRONEX) 0.5 MG tablet Take 1 tablet (0.5 mg total) by mouth daily as needed. (Patient not taking: Reported on 06/17/2023) loperamide HCl (IMODIUM A-D ORAL) Take by mouth. (Patient not taking: Reported on 10/14/2023) No current facility-administered medications on file prior to visit. Past Medical History: Past Medical History: Diagnosis Date Cholecystitis Past Surgical History: Past Surgical History: Procedure Laterality Date ARTHROSCOPY SHOULDER W/ OPEN ROTATOR CUFF REPAIR Left 2011 CHOLECYSTECTOMY N/A 2008 HERNIA REPAIR N/A 03/2012 HIP FRACTURE SURGERY Left 05/2017 HYSTERECTOMY N/A lower ext angiogram Bilateral 01/07/2022 Performed by Taryn Belle MD at [facility] CARDIAC CATH LABS TOTAL HIP ARTHROPLASTY 2019 Social and Family History: Social History Socioeconomic History Marital status: Spouse name: Not on file Number of children: Not on file Years of education: Not on file Highest education level: Not on file Occupational History Not on file Tobacco Use Smoking status: Never Smokeless tobacco: Never Vaping Use Vaping status: Never Used Substance and Sexual Activity Alcohol use: Defer Drug use: Defer Sexual activity: Defer Other Topics Concern Not on file Social History Narrative Not on file Social Determinants of Health Financial Resource Strain: Not on file Food Insecurity: No Food Insecurity (10/14/2023) Hunger Screening Food Insecurity - Worry: Never True Food Insecurity - Inability: Never True Transportation Needs: Not on file Physical Activity: Not on file Stress: Not on file Social Connections: Not on file Interpersonal Safety: Unknown (04/01/2023) Received from [facility] Safety & Environment Fear of Current or Ex-Partner: Not on file Emotionally Abused: Not on file Physically Abused: Not on file Sexually Abused: Not on file Physically or Sexually Abused: Not on file Housing Instability: Not on file No family history on file. Recent Labs: Recent and relative labs were reviewed and interpreted and contributed to the assessment and plan below. Vitals: BP 148/76 (BP Site: Left Arm, BP Postition: Sitting, BP CUFF SIZE: M (9-13 inches)) Pulse 72 Ht177.8 cm (5' 10 ) Wt 61.7 kg (136 lb) SpO2 93% BMI 19.51 kg/m Body mass index is 19.51 kg/m . Physical Exam: Physical Exam Constitutional: [...] content normal. Judgment: Judgment normal. 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 Iliac shockwave intravascular lithotripsy and stenting with Right lower extremity angiogram and intervention. I discussed with her that she may need a femorofemoral bypass with femoral endarterectomy if were not able to cross this lesion.We will get cardiac risk stratification simultaneously because of that Venous ulcer of right leg (CMS-HCC) Current Assessment & Plan We will get venous reflux ultrasound. We will proceed with arterial revascularization followed by venous intervention and Unna boot. Delicia was seen today for follow up to go over vascular testing that was completed 2 . 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 While intending to generate a timely document that accurately reflects the content of the visit, no guarantee can be provided that every grammatical or spelling mistake has been or will be identified or corrected. Thank you for your understanding. documented in this encounterC[facility] History of Present illness Narrative* Deuce Kirkland MD - 06/17/2023 1:50 PM EDT Images from the original note were not included. To: GYPSY MCMAHON MD HPI: Delicia Hsu is a 87 y.o. female with Peripheral arterial disease she has significant femoral-popliteal and tibial occlusive disease. She does not have rest pain or tissue loss. She had wound in thepast that healed after revascularization. She does not smoke. She has no rest pain. Her claudication is mild.She is on Plavix.And simvastatin. Review of Systems: Review of Systems Constitutional: Negative. HENT: Negative. Respiratory: Negative. Cardiovascular: Negative. Gastrointestinal: Negative. Endocrine: Negative. Genitourinary: Negative. Musculoskeletal: Negative. Skin: Negative. Neurological: Negative. Hematological: Negative. Medications: Current Outpatient Medications on File Prior to Visit Medication Sig Dispense Refill bismuth subsalicylate (PEPTO-BISMOL ORAL) Refills(s) 0 budesonide EC (ENTOCORT EC) 3 mg 24 hr capsule Take 1 capsule (3 mg total) by mouth in the morning. cholecalciferol, vitamin D3, (D3-50 CHOLECALCIFEROL ORAL) Take 1 tablet by mouth in the morning. clopidogreL (PLAVIX) 75 mg tablet estradioL (ESTRACE) 0.01 % (0.1 mg/gram) vaginal cream loperamide (IMODIUM A-D) 2 mg tablet Take 2 tablets (4 mg total) by mouth in the morning and at bedtime. loperamide HCl (IMODIUM A-D ORAL) Take by mouth. melatonin 10 mg tablet Take 1 tablet by mouth nightly. metoprolol succinate XL (TOPROL XL) 50 mg 24 hr tablet Take 1 tablet (50 mg total) by mouth in the morning. pantoprazole (PROTONIX) 40 mg EC tablet Take 1 tablet (40 mg total) by mouth in the morning. simvastatin (ZOCOR) 40 mg tablet Take 1 tablet (40 mg total) by mouth in the morning and 1 tablet (40 mg total) before bedtime. spironolactone (ALDACTONE) 25 mg tablet Take 1 tablet (25 mg total) by mouth in the morning. zinc 50 mg tablet tablet Take 1 tablet (50 mg total) by mouth in the morning. acetaminophen (TYLENOL EXTRA STRENGTH) 500 mg tablet Take 2 tablets (1,000 mg total) by mouth every6 (six) hours as needed for pain. (Patient not taking: Reported on 06/17/2023) 30 tablet 0 alosetron (LOTRONEX) 0.5 MG tablet Take 1 tablet (0.5 mg total) by mouth daily as needed. (Patient not taking: Reported on 06/17/2023) No current facility-administered medications on file prior to visit. Past Medical History: Past Medical History: Diagnosis Date Cholecystitis Past Surgical History: Past Surgical History: Procedure Laterality Date ARTHROSCOPY SHOULDER W/ OPEN ROTATOR CUFF REPAIR Left 2012 CHOLECYSTECTOMY N/A 2009 HERNIA REPAIR N/A 03/2012 HIP FRACTURE SURGERY Left 05/2017 HYSTERECTOMY N/A lower ext angiogram Bilateral 01/07/2022 Performed by Taryn Belle MD at [facility] CARDIAC CATH LABS TOTAL HIP ARTHROPLASTY 2019 Social and Family History: Social History Socioeconomic History Marital status: Spouse name: Not on file Number of children: Not on file Years of education: Not on file Highest education level: Not on file Occupational History Not on file Tobacco Use Smoking status: Never Smokeless tobacco: Never Vaping Use Vaping status: Never Used Substance and Sexual Activity Alcohol use: Defer Drug use: Defer Sexual activity: Defer Other Topics Concern Not on file Social History Narrative Not on file Social Determinants of Health Financial Resource Strain: Not on file Food Insecurity: No Food Insecurity (06/17/2023) Hunger Screening Food Insecurity - Worry: Never True Food Insecurity - Inability: Never True Transportation Needs: Not on file Physical Activity: Not on file Stress: Not on file Social Connections: Not on file Interpersonal Safety: Unknown (04/01/2023) Received from [facility] Safety & Environment Fear of Current or Ex-Partner: Not on file Emotionally Abused: Not on file Physically Abused: Not on file Sexually Abused: Not on file Physically or Sexually Abused: Not on file Housing Instability: Not on file History reviewed. No pertinent family history. Recent Labs: Recent and relative labs were reviewed and interpreted and contributed to the assessment and plan below. Vitals: BP 124/68 (BP Site: Right Arm, BP Postition: Sitting, BP CUFF SIZE: L (13-17 inches)) Pulse 72 Ht 177.8 cm (5' 10 ) Wt 62.1 kg (136 lb 12.8 oz) BMI 19.63 kg/m Body mass index is 19.63 kg/m . Physical Exam: Physical Exam Constitutional: [...] content normal. Judgment: Judgment normal. Recent testing: PVR Assessment and Plan: Problem List PAD (peripheral artery disease) ([facility]) - Primary Overview Added automatically from request for surgery [id number] Delicia was seen today for pad. Diagnoses and all orders for this visit: PAD (peripheral artery disease) ([facility]) Deuce Kirkland MD, QUENTIN, RPVI, FSVS, FACS [facility] This note was created with the assistance of a speech recognition program. While intending to generate a timely document that accurately reflects the content of the visit, no guarantee can be provided that every grammatical or spelling mistake has been or will be identified or corrected. Thank you for your understanding. 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 Other 02-01-2024 Evaluation note* Encounter Date Diagnosis Assessment Notes Treatment Notes Treatment Clinical Notes Mar, Diarrhea (ICD-10 - R19.7) [employer] Other 01-11-2024 Evaluation note* Encounter Date Diagnosis [...] infections. Preventative measures were discussed. Vitamin C giqx-rgs-isurlrd recommended as well as topical Thera workx [...] n due to immunosuppression (ICD-10 - Z91.89) [employer] Other 01-09-2024 Evaluation note* Encounter Date Diagnosis [...] pain. Feb, Pain, unspecified (ICD-10 - R52) [employer] Other 12-19-2023 Hospital Discharge instructions Patient Education 01/26/2023 16:05:17 Urinary Tract Infection, Adult, Hgos-oy-Dsbu Urinary Tract Infection, Adult A urinary tract [...] Follow these instructions at home: Medicines Take tkmt-ktl-wbsnizy and prescription medicines only as told by [...] provider. Document Revised: 09/06/2020 Document Reviewed: 09/06/2020 [employer] Patient Education 2022 [employer] Follow Up Care 06/09/2022 14:50:19 With:DEB ZAZUETA, MALATHI Olvera, URL Address: [address] [place] [address]. [place] [address] [phone] When: Unknown Comments:f/u in [place] [facility] 12-13-2023 Evaluation note* Encounter Date Diagnosis Assessment Notes Treatment Notes Treatment Clinical Notes Jan, Diarrhea (ICD-10 - R19.7) [employer] Other 12-05-2023 Evaluation note* Encounter Date Diagnosis [...] a day, we will re-test for C-diff [employer] Other 11-28-2023 Evaluation note* Encounter Date Diagnosis Assessment Notes Treatment Notes Treatment Clinical Notes Dec, Clostridium difficile colitis (ICD-10 - A04.72) Finish meds as prescribed. (cipro, Flagyl) Followup w Dr. Brown as scheduled. Understands the c diff could recur. Followup as needed Discussed good nutrition and healthy diet. [employer] Other 11-20-2023 Evaluation note* Encounter Date Diagnosis Assessment Notes Treatment Notes Treatment Clinical Notes Dec, Diarrhea, unspecified type (ICD-10 - R19.7) Pt appears to be having secondary from viral infection. There is no abdominal pain on exam and pt is afebrile which is reassuring. C. diff infection is a possibility as she was recently treated [facility] antibitics for a UTI, will check [...] Pt understands and agrees with the plan. [employer] Other 11-07-2023 Evaluation note* Encounter Date Diagnosis Assessment Notes Treatment Notes Treatment Clinical Notes Dec, Frequent UTI (ICD-10 - N39.0) [employer] Other 11-07-2023 Evaluation note* Encounter Date Diagnosis [...] Dr. Licea today. Consider PT at [facility] or the [employer] Other 08-15-2023 Hospital Discharge instructions Patient Education 09/22/2022 15:32:53 Urinary Tract Infection, Adult, Ybiw-ke-Gquq Urinary Tract Infection, Adult A urinary tract [...] Follow these instructions at home: Medicines Take xbww-njh-nmaudwn and prescription medicines only as told by [...] provider. Document Revised: 09/06/2020 Document Reviewed: 09/06/2020 [employer] Patient Education 2022 [employer]. Follow Up Care 09/22/2022 10:38:22 With:DEB ZAZUETA, MALATHI Olvera, URL Address: [address] [place] [address] When: Unknown [facility] 08-03-2023 Evaluation note* Encounter Date Diagnosis Assessment Notes Treatment Notes Treatment Clinical Notes Sep, Dysuria (ICD-10 - R30.0) [employer] Other 08-01-2023 Evaluation note* Encounter Date Diagnosis Assessment Notes Treatment Notes Treatment Clinical Notes Sep, Microscopic colitis, unspecified microscopic colitis type (ICD-10 - K52.839) [employer] Other 07-25-2023 Evaluation note* Encounter Date Diagnosis Assessment Notes Treatment Notes Treatment Clinical Notes Aug, Frequent UTI (ICD-10 - N39.0) Continue estrogen cream. Review with Urology on her followup appt. Discussed causes of UTIs Aug, Lymphocytic colitis (ICD-10 - K52.832) Improved with GI at [facility]. 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 Barry. Reviewed medications and explained their purpose. [employer] Other 07-20-2023 Evaluation note* Encounter Date Diagnosis Assessment Notes Treatment Notes Treatment Clinical Notes Aug, Recurrent UTI (ICD-10 - N39.0) [employer] Other 05-02-2023 Hospital Discharge instructions Patient Education 06/09/2022 14:15:56 Urinary Tract Infection, Adult, Ldqv-nq-Nwyb Urinary Tract Infection, Adult A urinary tract [...] Follow these instructions at home: Medicines Take hhns-wen-smoqpyv and prescription medicines only as told by [...] provider. Document Revised: 09/06/2020 Document Reviewed: 09/06/2020 [employer] Patient Education 2022 [employer] Follow Up Care 06/01/2022 10:03:13 With:CHER KRISHNAN, Marvin Camacho, URL Address: [facility] [address], [place] [phone] When:10/10/2022 [facility] 04-11-2023 Hospital Discharge instructions Patient Education [...] Treatment for this condition includes: Antibiotic medicine. Zlyf-zrz-paaenvl medicines to treat discomfort. Drinking enough water [...] Follow these instructions at home: Medicines Take semw-cdv-ckjhoyh and prescription medicines only as told by [...] 11/04/2005 Document Revised: 01/12/2019 Document Reviewed: 08/04/2018 [employer] Patient Education 2020 [employer]. Follow Up Care 04/20/2022 10:50:51 With:MALATHI VIEIRA PA-C, URL Address: [address] [facility] [place] [address] When: Unknown [facility] 04-06-2023 Evaluation note* Encounter Date Diagnosis Assessment Notes Treatment Notes Treatment Clinical Notes May, Frequent UTI (ICD-10 - N39.0) [employer] Other 03-24-2023 Evaluation note* Encounter Date Diagnosis [...] back this morning. antibiotic at her pharmacy. [employer] Other 03-17-2023 Evaluation note* Encounter Date Diagnosis Assessment Notes Treatment Notes Treatment Clinical Notes Apr, Lymphocytic colitis (ICD-10 - K52.832) Continue Entyvio as directed Continue Lotronex 0.5 mg 1/2 tablet daily Rto 4 months [employer] Other 03-09-2023 Evaluation note* Encounter Date Diagnosis Assessment Notes Treatment Notes Treatment Clinical Notes Apr, Acute cystitis without hematuria (ICD-10 - N30.00) [employer] Other 02-28-2023 Evaluation note* Encounter Date Diagnosis Assessment Notes Treatment Notes Treatment Clinical Notes Mar, Recurrent UTI (ICD-10 - N39.0) Discussed options. Will try estrogen cream for vaginal health. Denies personal history of female cancers. Will also set up w Urology Mar, Colitis (ICD-10 - K52.9) Further treatment with Dr. Brown w appt on 04/24 [employer] Other 02-20-2023 Evaluation note* Encounter Date Diagnosis Assessment Notes Treatment Notes Treatment Clinical Notes Mar, Dysuria (ICD-10 - R30.0) [employer] Other 01-09-2023 Evaluation note* Encounter Date Diagnosis Assessment Notes Treatment Notes Treatment Clinical Notes Feb, Acute cystitis without hematuria (ICD-10 - N30.00) Sent to [facility] for urine culture - will treat based on results. Feb, Encounter for immunization (ICD-10 - Z23) Feb, Microscopic colitis, unspecified microscopic colitis type (ICD-10 - K52.839) Keep appt w Dr. Brown. Discussed boost or other supplement to gain weight Feb, Gastric ulcer (ICD-10 - K25.9) Encouraged her to continue pantoprazole [employer] Other 01-04-2023 Evaluation note* Encounter Date Diagnosis Assessment Notes Treatment Notes Treatment Clinical Notes Feb, Lymphocytic colitis (ICD-10 - K52.832) Start Entyvio infusions every 8 weeks Continue Budesonide, Alosetron, Imodium, and Pepto for now until starting Entyvio. Pt to keep record of bowel movements - how many and consistency Follow up in 2 months Feb, Fecal incontinence (ICD-10 - R15.9) [employer] Other 11-28-2022 Evaluation note* Encounter Date Diagnosis [...] Pantoprazole as prescribed Okay to stop Sucralfate [employer] Other 09-25-2022 NoteOPERATIVE NOTE OPERATION DATE: 11/04/2021 [...] was taken to PACU in good condition.[facility] 03-27-2021 Evaluation note* Encounter Date Diagnosis Assessment Notes Treatment Notes Treatment Clinical Notes Mar, Microscopic colitis, unspecified microscopic colitis type (ICD-10 - K52.839) INCREASE COLESTIPOL TO 4 TABS AT LUNCHTIME DAILY IF NOT IMPROVED ON HIGHER DOSE PT TO CALL ON 03/31 FOR ALTERNATIVE PLAN Mar, Irritable bowel syndrome with diarrhea (ICD-10 - K58.0) [employer] Other 12-20-2021 Evaluation note* Encounter Date Diagnosis Assessment Notes Treatment Notes Treatment Clinical Notes Jan, Microscopic colitis, unspecified microscopic colitis type (ICD-10 - K52.839) START COLESIPOL 2 PO DAILY CONTINUE BUDESONIDE WITHOUT CHANGE 3 PO Q AM AND MAYBE CONSIDERING STOP THIS IF COLESTIPOL IS WORKING ENOUGH TO CONTROL HER SYMPTOMS [employer] Other 12-20-2021 Evaluation note* Encounter Date Diagnosis Assessment Notes Treatment Notes Treatment Clinical Notes Jan, Microscopic colitis, unspecified microscopic colitis type (ICD-10 - K52.839) [employer] Other Evaluation + Plan note No data available for this section [facility] evaluation + Plan note Future Appointments Appointment Date:10/27/2022 01:00:00 PM Scheduled Provider:MALATHI VIEIRA PA-C Location:[facility] Appointment Type:URO Office Visit [facility] evaluation + Plan note Future Appointments Appointment Date:12/29/2022 01:00:00 PM Scheduled Provider:MALATHI VIEIRA PA-C Location:[facility] Appointment Type:URO Office Visit [facility] evaluation + Plan note Future Appointments Appointment Date:06/15/2023 02:00:00 PM Scheduled Provider:MALATHI VIEIRA PA-C Location:[facility] Appointment Type:URO Office Visit [facility] evaluation + Plan note Future Appointments Appointment Date:01/30/2023 10:30:00 AM Scheduled Provider: Location:[facility] Appointment Type:ASU IV Antibiotic (FT) Appointment Date:01/31/2023 10:30:00 AM Scheduled Provider: Location:[facility] Appointment Type:ASU IV Antibiotic (FT) Appointment Date:02/01/2023 10:30:00 AM Scheduled Provider: [facility] Appointment Type:ASU IV Antibiotic (FT) Appointment Date:02/02/2023 10:30:00 AM Scheduled Provider: Location:[facility] Appointment Type:ASU IV Antibiotic (FT) Appointment Date:02/03/2023 10:30:00 AM Scheduled Provider: Location:[facility] Appointment Type:ASU IV Antibiotic (FT) Appointment Date:02/04/2023 10:30:00 AM Scheduled Provider: Location:[facility] Appointment Type:ASU IV Antibiotic (FT) Appointment Date:06/15/2023 02:00:00 PM Scheduled Provider:MALATHI VIEIRA PA-C Location:[facility] Appointment Type:URO [facility]No [facility] [employer] Other Evaluation noteNo assessment information available [facility] Work Phone: Evaluation note* Diagnosis Onset Date Resolution Status Recurrent Clostridioides difficile diarrhea acute [facility] Work Phone: Evaluation note* Diagnosis Onset Date Resolution Status Recurrent Clostridioides difficile diarrhea acute Diarrhea acute Microscopic colitis acute Recurrent Clostridioides difficile diarrhea acute Recurrent UTI acute [facility] Work Phone: Evaluation note* Diagnosis Trochanteric bursitis of left hip- Primary Primary osteoarthritis of left hip History of left hip replacement documented in this encounter [facility]* Diagnosis 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 ulcer of right leg (CMS-HCC) 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 Diagnosis Primary osteoarthritis of left knee- Primary Left knee pain, unspecified chronicity Olecranon bursitis, right elbow documented in this encounter [facility]* Diagnosis PAD (peripheral artery disease) (CMS-HCC)- Primary Unspecified peripheral vascular disease [facility] this 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 insufficiency (chronic) (peripheral) Unspecified venous (peripheral) insufficiency documented [facility]* Diagnosis 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 ulcer of right leg (CMS-HCC) 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 ulcer of ankle, right (CMS-HCC) Critical limb ischemia of both lower extremities with rest pain (CMS-HCC) 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 insufficiency (chronic) (peripheral) Unspecified venous (peripheral) insufficiency Critical limb ischemia of both lower extremities with rest pain (CMS-HCC)- Primary 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, unspecified ulceration site (CMS-HCC) PAD (peripheral artery disease) (CMS-HCC) Unspecified peripheral vascular disease Encounter for therapeutic drug monitoring documented in this [facility]* Diagnosis 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 ulcer of right leg (CMS-HCC) 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 ulcer of ankle, right (CMS-HCC) Critical limb ischemia of both lower extremities with rest pain (CMS-HCC) 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 insufficiency (chronic) (peripheral) Unspecified venous (peripheral) insufficiency documented in this encounter [facility]* Diagnosis 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 ulcer of right leg (CMS-HCC) 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 ulcer of ankle, right (CMS-HCC) Critical limb ischemia of both lower extremities with rest pain (CMS-HCC) 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 insufficiency (chronic) (peripheral) Unspecified venous (peripheral) insufficiency 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 Other [employer] general Narrative - Reported* Type Description Date [...] History See Surgical Hx Hospitalization History [facility] 12/2022 [employer] Other History general Narrative - Reported* Type [...] History See Surgical Hx Hospitalization History [facility] 12/2022 [employer] Other History general Narrative - Reported* Type [...] History See Surgical Hx Hospitalization History [facility] 12/2022 [employer] Other [employer] general Narrative - Reported* Type Description Date [...] History See Surgical Hx Hospitalization History [facility] 12/2022 [employer] Other Hospital Discharge instructions No data available for this section [facility]* Attachments The following attachments cannot be sent through Care Everywhere. * Peripheral Vascular (Arterial) Disease Discharge Instructions ([place]) * Atherectomy - Angioplasty of a Noncoronary Vessel ([place]) * Gangrene Discharge Instructions ([place]) [facility] SystemInstructionsNot on file documented in [facility] Pinocular SystemInstructionsNot on file documented in this [facility] Pinocular SystemInstructionsNot on file documented in this encounterProThe Surgical Hospital At SouthwoodsKaritKarma SystemInstructionsNot on file documented in this encounterProThe [facility] Southwoodsca Pinocular SystemInstructionsNot on file documented in this encounterProMedica Pinocular SystemInstructionsNot on file documented in this encounterProMediaz Pinocular SystemInstructionsNot on file documented in this encounterPro[facility] Pinocular SystemInstructionsNot on file documented in this encounter[facility] Pinocular SystemInstructionsNot on file documented in this encounterPro[facility] Pinocular SystemInstructionsNot on file documented in this encounterPro[facility] Pinocular SystemInstructionsNot on file documented in this encounterProHenry [facility] SystemProgress note No data available for this section [facility] referral (narrative)* Misc (Routine) - Pending Review Specialty Diagnoses / Procedures Referred By Contac t Referred To Contact Procedures Hygiene Aroldo Burns APRN-CNP [employer] [place] [address] Phone: tel:[phone] fax: Referral ID Status Reason Start Date Expiration Date V isits Requested Visits Authorized [id number] Pending Review 01/07/2024 01/06/2025 1 1 * Misc (Routine) - Pending Review Specialty Diagnoses / Procedures Referred By Contac t Referred To Contact Procedures Wound care (specify) Aroldo Burns APRN-CNP [employer] [place] [address] Phone: tel: fax: Referral ID Status Reason Start Date Expiration Date V isits Requested Visits Authorized [id number] Pending Review 01/07/2024 01/06/2025 1 1 * Misc (Routine) - Pending Review Specialty Diagnoses / Procedures Referred By Contac t Referred To Contact Procedures Wound care (specify) Aroldo Burns APRN-CNP [employer], [address] [place] [address] Phone: tel: fax: Referral ID Status Reason Start Date Expiration Date V isits Requested Visits Authorized [id number] Pending Review 01/07/2024 01/06/2025 1 1 [facility] Narrative* Auth/Cert (Routine) Specialty Diagnoses / Procedures Referred By Contac t Referred To Contact Diagnoses 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, ARTERIAL OCCLUSIVE DISEASE Procedures [place] REVASCULARIZATION ILIAC ARTERY ANGIOP 1ST VSL ENDARTERECTOMY FEMORAL (ILIOFEMORAL ENDARTERECTOMY) ANGIOPLASTY ILIAC BYPASS ARTERY FEMORAL POPLITEAL Deuce Kirkland MD [address], [place] [address] [place] [phone] Phone: tel: fax: Referral ID Status Reason Start Date Expiration Date Visits Re quested Visits Authorized [id number] 1 1 [facility] Summary Purpose Family History Relationship Condition Age at Onset Recorded Date/T carolee father Unknown Not Specified Unknown brother Malignant neoplasm Unknown Diabetes mellitus Unknown Relationship Condition Age at Onset Recorded Date/T carolee father Unknown mother Unknown brother Malignant neoplasm Unknown Diabetes mellitus Unknown Advance Directives Advance Directive Response Recorded Date/ Time Advance Directives No November 22, 2017 9:57am Advance Directive Response Recorded Date/ Time Advance Directives No November 22, 2017 10:57am Documents on File Type Date Recorded 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 Healthcare Agents on File Name Relationship Healthcare Agent Relationship Communication Joanna Linkenhoker Daughter First Charlie chahal Health Care Agent [email or web address] Healthcare Agents on File Name Relationship Healthcare Agent Relationship Communication Joanna Linkenhoker Daughter First Charlie chahal Health Care Agent [email or web address] Agents on File Name Relationship Healthcare Agent Relationship Communication Joanna Linkenhoker Daughter First Charlie te Health Care Agent [email or web address] Activated Date Inactivated Comments 11/19/2023 7:37 AM 11/19/2023 2:11 PM Healthcare Agents on File Name Relationship Healthcare Agent Relationship Communication Joanna Linkenhoker Daughter First Charlie te Health Care Agent [email or web address] Agents on File Name Relationship Healthcare Agent Relationship Communication Joanna Linkenhoker Daughter First Charlie te Health Care Agent [email or web address] Agents on File Name Relationship Healthcare Agent Relationship Communication Joanna Linkenhoker Daughter First Malgorzataa te Health Care Agent [email or web address] Agents on File Name Relationship Healthcare Agent Relationship Communication Joanna Linkenhoker Daughter First Malgorzataa te Health Care Agent [email or web address] Agents on File Name Relationship Healthcare Agent Relationship Communication Joanna Linkenhoker Daughter First Alterna te Health Care Agent [email or web address] Agents on File Name Relationship Healthcare Agent Relationship Communication Joanna Linkenhoker Daughter First Alterna te Health Care Agent [email or web address] Course Note [facility] Clinical Discharge Summary PERSON INFORMATION Name DELICIA HSU Age 83 Years 1935 Sex FEMALE Language [place] PCP Lisandro KRISHNAN, Gypsy Olvera Marital Status Med Service Med/Surg Acct# Arrival 09/25/2019 06:52:00 Visit Reason SURGERY - LEFT TOTAL HIP Acuity LOS Address: [address] [place] [address] Comment: PROVIDER INFORMATION VITALS INFORMATION Vital Sign [...] colitis Recurrent Clostridioides difficile diarrhea Recurrent UTI Chief Complaint Admit Date Amb Documentation December 27, 2023 8:54am half-way visit January 10, 2024 1 1:59pm 4 month follow up February 21, 2024 1 :24pm Correction follow up March 23 1:46pm Reason for Visit Admit Date Microscopic colitis February 21, 2024 1 :24pm Reason for Referral Specialty Diagnoses / Procedures Referred By Contac t Referred To Contact Diagnoses 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) Procedures Vas venous duplex insufficiency lwr Deuce Haider MD [address], [address] [address] Referral ID Status Reason Start Date Expiration Date V isits Requested Visits Authorized [id number] Pending Review 10/14/2023 10/13/2024 1 1 Specialty Diagnoses / Procedures Referred By Christiane t Referred To Contact Diagnoses PAD (peripheral artery disease) ([facility]-HCC) Procedures Vas art doppler lwr bilat mult lev/PVR Deuce Kirkland MD [address], [address] [address] Referral ID Status Reason Start Date Expiration Date V isits Requested Visits Authorized [id number] Pending Review 06/17/2023 06/16/2024 1 1 Reason DUPLICATE [place] [facility] - frequent UTIs. Diagnosis 1 Frequent UTI (N39.0) Referral Organization [facility] [employer] Referring Provider First Name Gypsy Referring Provider Last Name Mcmahon Referring Provider Specialty [facility] [employer] Referred Organization [facility] Referred Provider Beau Hernandez Referred Address [address],[place],[address] Referred Provider Specialty Urology Referral Priority Routine General Notes Tatyana Bojorquez 01:56:52 PM >received today Tatyana Bojorquez 05/14/2022 02:02:41 PM >attachments made, notes locked, referral faxed Tatyana Bojorquez 05/14/2022 03:25:50 PM >DUPLICATE REFERRAL Reason *FU 04/28 [place] [facility] - recurrent UTIs. Diagnosis 1 Recurrent UTI (N39.0 ) Referral Organization [facility] [employer] jha Referring Provider First Name Gypsy Referring Provider Last Name Mcmahon Referring Provider Specialty [facility] [employer] Referred Organization [facility] Referred Provider Gerson Juárez Referred Address [address],[place], [place],[address] Referred Provider Specialty Urology Referral Priority Routine [...] and content) DATE CREATED AUTHOR 09/17/2018 [facility] [place] [facility] DATE CREATED AUTHOR AUTHOR'S ORGANIZ ATION 10/30/2019 [facility] DATE CREATED AUTHOR AUTHOR'S ORGANIZ ATION 05/31/2022 [facility] DATE CREATED AUTHOR AUTHOR'S ORGANIZ ATION 05/30/2023 [facility] DATE CREATED AUTHOR AUTHOR'S ORGANIZ ATION 07/29/2023 Garduno Holmes [facility] DATE CREATED AUTHOR AUTHOR'S ORGANIZ ATION 01/02/2024 [facility] DATE CREATED AUTHOR AUTHOR'S ORGANIZ ATION 01/21/2024 [facility] DATE CREATED AUTHOR AUTHOR'S ORGANIZ ATION 02/23/2024 [facility] DATE CREATED AUTHOR AUTHOR'S ORGANIZ ATION 03/04/2024 [facility] DATE CREATED AUTHOR AUTHOR'S ORGANIZ ATION 03/04/[address] 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 Rates 9\10 sharp pain Reason Comments Follow-up Post op visit- has a wound on on right lower leg Reason Comments rt fem endart-iliac stent & fem pop bypass 01-01-24 Pain to right leg comes and goes rates 6 /10 Care Teams (unrecognized sec tion and content) [...] 2022 Team Status: Inactive Member Role Status CHARIS Lorenz Attending Provider Act jamar Start: December 28, [...] February 26, 2023 End: February 26, 2023 Vice President Of Marketing Relationship Specialty Start Date End Date Gypsy Mcmahon MD [address] [place] [address] [phone] PCP - General Family Medicine 07/18/22 Vice President Of Marketing Relationship Specialty Start Date End Date Gypsy Mcmahon MD [address] [place] [address] [phone] PCP - General Family Medicine 07/18/22 Vice President Of Marketing Relationship Specialty Start Date End Date Gypsy Mcmahon MD [address] [place] [address] [phone] PCP - General Family Medicine 04/10/22 Vice President Of Marketing Relationship Specialty Start Date End Date Gypsy Mcmahon MD [address] [place] [phone] PCP - General Family Medicine 07/18/22 Vice President Of Marketing Relationship Specialty Start Date End Date Gypsy Mcmahon MD [address] [place] [address] [phone] PCP - General Family Medicine 07/18/22 Vice President Of Marketing Relationship Specialty Start Date End Date Gypsy Mcmahon MD [address] [place], [place] [phone] PCP - General Family Medicine 04/10/22 Team Status: Active Member Role Status Dates Gypsy Mcmahon MD Primary Care Provider Active Start: December 27, 2023 Monie Boyer CMA Attending Provider Active Start: December 27, 2023 Team Status: Active Member Role Status Dates Gypsy Mcmahon MD Primary Care Provide r, Attending Provider Active Start: January 10, 2024 Team Status: Inactive Member Role Status Dates Gypsy Mcmahon MD Primary Care Provider Active Start: February 21, 2024 End: February 21, 2024 Monie Wallace DO Attending Provider Active St art: February 21, 2024 End: February 21, 2024 Team Status: Inactive Member Role Status Dates Gypsy Mcmahon MD Primary Care Provide r, Attending Provider Active Start: March 23, 2024 End: March 23, 2024 Vice President Of Marketing Relationship Specialty Start Date End Date Gypsy Mcmahon MD [address] [place] [address] PCP - General Family Medicine 04/10/22 Vice President Of Marketing Relationship Specialty Start Date End Date Gypsy Mcmahon MD [address] [place], [place] [id number] PCP - General Family Medicine 04/10/22 Vice President Of Marketing Relationship Specialty Start Date End Date Gypsy Mcmahon MD [address] [place], [place] [id number] PCP - General Family Medicine 04/10/22 Vice President Of Marketing Relationship Specialty Start Date End Date Gypsy Mcmahon MD [address] [place], [place] [id number] PCP - General Family Medicine 04/10/22 Vice President Of Marketing Relationship Specialty Start Date End Date Gypsy Mcmahon MD [address] [place] [id number] PCP - General Family Medicine 04/10/22 Vice President Of Marketing Relationship Specialty Start Date End Date Gypsy Mcmahon MD [address] [place] [id number] PCP - General Family Medicine 04/10/22 Vice President Of Marketing Relationship Specialty Start Date End Date Gypsy Mcmahon MD [address] [place] [id number] PCP - General Family Medicine 04/10/22 Vice President Of Marketing Relationship Specialty Start Date End Date Gypsy Mcmahon MD [address] [place], [place] [id number] PCP - General Family Medicine 04/10/22 Vice President Of Marketing Relationship Specialty Start Date End Date Gypsy Mcmahon MD [address] [place] [id number] PCP - General Family Medicine 04/10/22 Vice President Of Marketing Relationship Specialty Start Date End Date Gypsy Mcmahon MD [address] [place] [id number] PCP - General Family Medicine 04/10/22 Vice President Of Marketing Relationship Specialty Start Date End Date Gypsy Mcmahon MD [address] [place] [address] [id number] PCP - General Family Medicine 04/10/22 Goals (unrecognized section and content) Goals may be documented in a n alternate section Scheduled Active and Recently Administ ered Medications (unrecognized section and content) Medication Order 01/05/2024 01/06/2024 01/07/2024 acetaminophen (TYLENOL EXTRA STRENGTH) tablet 1,000 mg 1,000 mg, oral, Every 8 hours, First dose (after last modification) on Wed01/06/24 at 1730, For 3 days 1754 (Given - Provider: Matilda Wilson RN)2314 (Given - Provider: Laquita Argueta RN) 0640 (Given - Provider: Mi Saldana RN)1459 (Given - Provider: Eleanor Soto RN)2300 (Due) acetic acid 0.25 % irrigation solution 20 mL 20 mL, irrigation, 2 times daily, First dose on Wed01/03/24 at 0915, For irrigation only. Look-alike/sound-alike medication - verify indication for use. 0900 (Not Given - Provider: Monie Brown RN - Reason: Patient/family refused)1934 (Given - Provider: Monie Brown RN)2100 (Canceled Entry - Provider: Laquita Argueta RN) 0844 (Given - Provider: Matilda Wilson RN)2000 (Given - Provider: Laquita Argueta RN) 1327 (Given - Provider: Eleanor Soto, KAYLYNN)2100 (Due) cefEPime (MAXIPIME) 1,000 mg in sodium chloride 0.9 % 50 mL IVPB-MBP (CANCELED)(Linked Group 1) 1,000 mg, intravenous, at 12.5 mL/hr, Administer over 4 Hours, Every 12 hours, First dose on Wed01/04/24 at 2000, ADD-VANTAGE/MBP- Discard 24 hours after activating; dissolve drug prior to administration. Protect dry powder vial from light., Indication: UTI 0120 (New Bag - Provider: Laquita Argueta RN)0520 (Stop Bag - Provider: Laquita Argueta RN)1324 (New Bag - Provider: Monie Brown RN)1724 (Stop Bag - Provider: Monie Brown RN) 0103 (New Bag - Provider: Laquita Argueta RN)0503 (Stop Bag - Provider: Laquita Argueta RN) cefTRIAXone (ROCEPHIN) 2,000 mg in sodium chloride 0.9 % 50 mL IVPB-MBP (CANCELED) 2,000 mg, intravenous, at 100 mL/hr, Administer over 30 Minutes, Every 24 hours, First dose on Akiko 01/06/24 at 1045, ADD-VANTAGE/MBP- Discard 8 hours after activating; dissolve drug prior to administration Look-alike/sound-alike medication - verify indication for use. Do not co-administer with calcium-containing solutions such as Lactated Ringers., Indication: UTI 1233 (New Bag - Provider: Matilda Wilson RN - Comment: medication not available in pyxis dose filled by pharmacy)1303 (Stop Bag - Provider: Matilda Wilson RN) 1045 (Canceled Entry - Provider: Eleanor Soto RN) CEPHalexin (KEFLEX) capsule 500 mg 500 mg, oral, Every 6 hours scheduled, First dose on Wed01/07/24 at 1200, Patient reportedly has tolerated Keflex multiple times in the past Look-alike/sound-alike medication - verify indication for use., Indication: UTI 1249 (Given - Provider: Eleanor Soto RN)1800 (Due) clopidogreL (PLAVIX) tablet 75 mg 75 mg, oral, Daily, First dose on Wed01/01/24 at 1915, Look-alike/sound-alike medication - verify indication for use. 0838 (Given - Provider: Monie Brown RN) 0801 (Given - Provider: Matilda Wilson RN) 0816 (Given - Provider: Eleanor Soto RN) docusate sodium (COLACE) capsule 100 mg 100 mg, oral, Daily, First dose on Wed01/05/24 at 0900, Look-alike/sound-alike medication - verify indication for use. 0857 (Given - Provider: Monie Brown RN) 0801 (Given - Provider: Matilda Wilson RN) 0816 (Given - Provider: Eleanor Soto RN) gabapentin (NEURONTIN) capsule 100 mg 100 mg, oral, 3 times daily, First dose on Wed01/02/24 at 1700, Look-alike/sound-alike medication - verify indication for use. 0616 (Given - Provider: Laquita Argueta RN)1317 (Given - Provider: Monie Brown RN)2203 (Given - Provider: Laquita Argueta RN) 0514 (Given - Provider: Laquita Argueta RN)1316 (Given - Provider: Matilda Wilson RN)2001 (Given - Provider: Laquita Argueta RN)2200 (Canceled Entry - Provider: Laquita Argueta RN) 0640 (Given - Provider: Mi Saldana RN)1500 (Given - Provider: Eleanor Soto RN)2200 (Due) methocarbamoL (ROBAXIN) tablet 500 mg 500 mg, oral, 3 times daily, First dose on Wed01/06/24 at 1730, For 3 days 2000 (Given - Provider: Laquita Argueta RN)0 (Canceled Entry - Provider: Laquita Argueta RN) 0816 (Given - Provider: Eleanor Soto RN)1500 (Given - Provider: Eleanor Soto RN)2200 (Due) pantoprazole (PROTONIX) EC tablet 40 mg 40 mg, oral, Every morning before breakfast, First dose on Wed01/06/24 at 1745, Look-alike/sound-alike medication - verify indication for use. If patient is receiving enteral feeding, consider alternative PPI or continue IV pantoprazole until the delayed-release tablet can be taken orally, Indication: GERD 2150 (Given - Provider: Laquita Argueta RN) 0817 (Given - Provider: Eleanor Soto RN) polyethylene glycol (GLYCOLAX) packet 17 g 17 g, oral, Daily, First dose (after last modification) on Wed01/06/24 at 1745, Hold for loose stool Look-alike/sound-alike medication - verify indication for use. Dissolve 1 packet (17 gm) in 8 ounces of water, juice, soda, coffee or tea. 0814 (Given - Provider: Eleanor Soto RN)0900 (Canceled Entry - Provider: Eleanor Soto RN) rivaroxaban (XARELTO) tablet 2.5 mg 2.5 mg, oral, 2 times daily with meals, First dose on Wed01/03/24 at 1100, Take/Give with food., Indication: Chronic Coronary Artery Disease/Peripheral Artery Disease 0838 (Given - Provider: Monie Brown RN)1703 (Given - Provider: Monie Brown RN) 0801 (Given - Provider: Matilda Wilson, KAYLYNN)1727 (Given - Provider: Matilda Wilson RN) 0817 (Given - Provider: Eleanor Soto, KAYLYNN)1704 (Given - Provider: Eleanor Soto, KAYLYNN) Continuous Medication Order 01/05/2024 01/06/2024 01/07/2024 lactated ringers infusion 50 mL/hr, intravenous, Continuous, Starting on 01/01/24 at 1930, For 24 hours PRN Medication Order 01/05/2024 01/06/2024 01/07/2024 acetaminophen (TYLENOL EXTRA STRENGTH) tablet 1,000 mg (CANCELED) 1,000 mg, oral, Every 6 hours PRN, mild pain - pain scale 1-3, Starting on 01/01/24 at 2300 0116 (Given - Provider: Laquita Argueta RN)0610 [facility] - Provider: Laquita Argueta RN)0838 (Given - Provider: Monie Brown RN)2203 (Given - Provider: Laquita Argueta RN) 0514 (Given - Provider: Laquita Argueta RN)1119 (Given - Provider: Matilda Wilson RN - Comment: She does not want any stronger pain medication, reports it makes her confused)1716 (Not Given - Provider: Matilda Wilson RN - Reason: Other - Comment: patient wants muscle relaxer) calcium gluconate IVPB 1000 mg/50 mL (20 mg/mL premix)(Linked Group 2) 1,000 mg, intravenous, at 50 mL/hr, Administer over 60 Minutes, As needed, for ionized calcium level 3.5 to 4.4 mg/dL, Starting on 01/01/24 at 1858, Recheck ionized calcium 6 hours after infusion. Hold calcium replacement for phosphorus greater than 5.5 mg/dL. VESICANT (RED) calcium gluconate IVPB 1000 mg/50 mL (20 mg/mL premix)(Linked Group 2) 3,000 mg, intravenous, at 150 mL/hr, Administer over 60 Minutes, As needed, for ionized calcium level less than 3 mg/dL, Starting on 01/01/24 at 1858, CALL PHYSICIAN if this dose is administered. Recheck ionized calcium 6 hours after infusion. Hold calcium replacement for phosphorus greater than 5.5 mg/dL. VESICANT (RED) calcium gluconate IVPB 2000 mg/100 mL (20 mg/mL premix)(Linked Group 2) 2,000 mg, intravenous, at 100 mL/hr, Administer over 60 Minutes, As needed, for ionized calcium level 3 to 3.4 mg/dL, Starting on 01/01/24 at 1858, Recheck ionized calcium 6 hours after infusion. Hold calcium replacement for phosphorus greater than 5.5 mg/dL. VESICANT (RED) dextrose (GLUTOSE) 40 % gel 15 g 15 g, oral, As needed, low blood sugar, blood glucose less than 70 mg/dL, Starting on 01/01/24 at 1858, If patient conscious and taking PO. If blood glucose is not greater than 70 mg/dL after initial treatment, repeat treatment. dextrose 50 % in water (D50W) 50% solution 25 g(Linked Group 3) 25 g, intravenous, Once as needed, low blood sugar, as needed for Pre-insulin glucose level 150-250 mg/dL, Starting on Wed01/04/24 at 0909, For 1 dose, VESICANT (RED) Warning: HYPERTONIC solution. dextrose 50 % in water (D50W) 50% solution 25 mL 25 mL, intravenous, As needed, low blood sugar, blood glucose less than 70 mg/dL and unconscious or NPO with IV access, Starting on 01/01/24 at 1858, Push over 1-3 minutes STAT. If conscious and not NPO, immediately follow with meal tray or high protein (7 grams) snack if tray not available. If NPO, initiate 5% dextrose in water at 100 mL/hr and contact prescriber for additional orders. If blood glucose is not greater than 70 mg/dL after initial treatment, repeat treatment. VESICANT (RED) Warning: HYPERTONIC solution. glucagon HCL injection 1 mg 1 mg, intramuscular, As needed, low blood sugar, blood glucose less than 70 mg/dL and unconscious or NPO without IV access., Starting on 01/01/24 at 1858, If conscious and not NPO, immediately follow with meal tray or high protein (7Grams) snack if tray not available. If NPO, initiate IV 5% Dextrose/Water at 100 mL/hr and contact prescriber for additional orders. If blood glucose is not greater than 70 mg/dL after initial treatment, repeat treatment. hydrALAZINE (APRESOLINE) injection 20 mg 20 mg, intravenous, Every 6 hours PRN, high blood pressure, Starting on 01/02/24 at 0225, For systolic blood pressure greater than 160 mmHg, hold for HR>100 Look-alike/sound-alike medication - verify indication for use. Administer IV doses as a slow IV push; maximum rate: 5 mg/minute. HYDROmorphone (DILAUDID) injection 0.5 mg 0.5 mg, intravenous, Every 2 hour PRN, Breakthrough, Starting on 01/02/24 at 2225, If IV push, administer over over 2 to 3 minutes. Look-alike/sound-alike medication - verify indication for use. labetaloL (NORMODYNE,TRANDATE) injection 20 mg 20 mg, intravenous, Every 6 hours PRN, high blood pressure, Starting on 01/02/24 at 0136, For systolic blood pressure greater than 160 mmHg, hold for HR<60 Look-alike/sound-alike medication - verify indication for use. 1946 (Given - Provider: Laquita Argueta RN) magnesium sulfate IVPB 2000 mg/50 mL in iso-osmotic water (40 mg/mL premix)(Linked Group 4) 2,000 mg, intravenous, at 25 mL/hr, Administer over 120 Minutes, As needed, for magnesium level 1.7 to 1.9 mg/dL or ionized magnesium level 0.45 to 0.5 mmol/L, Starting on 01/01/24 at 1858, Use premix solution. Default to ionized magnesium level in cases where patient has both magnesium and ionized magnesium results. If administered, check ionized magnesium (or total magnesium if ionized magnesium unavailable) level 4 hours after infusion. magnesium sulfate IVPB 4000 mg/100 mL in iso-osmotic water (40 mg/mL premix)(Linked Group 4) 4,000 mg, intravenous, at 25 mL/hr, Administer over 240 Minutes, As needed, for magnesium level 1.6 mg/mL or less, or ionized magnesium level 0.44 mmol/L or less, Starting on 01/01/24 at 1858, Use premix solution. Default to ionized magnesium level in cases where patient has both magnesium and ionized magnesium results. If administered, check ionized magnesium (or total magnesium if ionized magnesium unavailable) level 4 hours after infusion. oxyCODONE (ROXICODONE) immediate release tablet 10 mg 10 mg, oral, Every 4 hours PRN, severe pain - pain scale 7-10, Starting on 01/02/24 at 1349, Look-alike/sound-alike medication - verify indication for use. Immediate release. 0620 (See Alternative - Provider: Laquita Argueta RN)1316 (Given - Provider: Monie Brown RN)1703 (Given - Provider: Monie Brown RN) 1725 (See Alternative - Provider: Matilda Wilosn RN)2314 (See Alternative - Provider: Laquita Argueta RN) 0315 (Given - Provider: Mi Saldana RN)1148 (Given - Provider: Eleanor Soto, KAYLYNN) oxyCODONE (ROXICODONE) immediate release tablet 5 mg 5 mg, oral, Every 4 hours PRN, moderate pain - pain scale 4-6, Starting on 01/02/24 at 1349, Look-alike/sound-alike medication - verify indication for use. Immediate release. 0620 (Given - Provider: Laquita Argueta RN)1316 (See Alternative - Provider: Monie Brown RN)1703 (See Alternative - Provider: Monie Brown RN) 1725 (Not Given - Provider: Matilda Wilson RN - Reason: Other - Comment: orders updated.)2314 (Given - Provider: Laquita Argueta RN) 0315 (See Alternative - Provider: Mi Saldana RN)1148 (See Alternative - Provider: Eleanor Soto, KAYLYNN) potassium chloride (K-TAB,KLOR-CON) CR tablet 20-50 mEq(Linked Group 5) 20-50 mEq, oral, As needed, for potassium replacement, Starting on 01/01/24 at 1858, Progress to oral potassium replacement when patient tolerating oral intake. If dose administered, recheck potassium level 4 hours after last dose. For potassium level 3.4 to 3.8 mmol/L and Serum Creatinine 1.2 or less=30 mEq. For potassium level 3.1 to 3.3 mmol/L and Serum Creatinine 1.2 or less=40 mEq. For potassium level 3 mmol/L or less and Serum Creatinine 1.2 or less=50 mEq. For potassium level 3.4 to 3.8 mmol/L and Serum Creatinine greater than 1.2=20 mEq. For potassium level 3.1 to 3.3 mmol/L and Serum Creatinine greater than 1.2=30 mEq. For potassium level 3 mmol/L or less and Serum Creatinine greater than 1.2=40 mEq. Do not crush or chew. potassium chloride (KAYCIEL) 20 mEq/15 mL solution 20-50 mEq(Linked Group 5) 20-50 mEq, oral, As needed, potassium replacement, Starting on 01/01/24 at 1858, Progress to oral potassium replacement when patient tolerating oral intake. If dose administered, recheck potassium level 4 hours after last dose. For potassium level 3.4 to 3.8 mmol/L and Serum Creatinine 1.2 or less=30 mEq (22.5mL). For potassium level 3.1 to 3.3 mmol/L and Serum Creatinine 1.2 or less=40 mEq (30mL). For potassium level 3 mmol/L or less and Serum Creatinine 1.2 or less=50 mEq (37.5mL). For potassium level 3.4 to 3.8 mmol/L and Serum Creatinine greater than 1.2=20 mEq (15mL). For potassium level 3.1 to 3.3 mmol/L and Serum Creatinine greater than 1.2=30 mEq (22.5mL). For potassium level 3 mmol/L or less and Serum Creatinine greater than 1.2=40 mEq (30mL). Must dilute before use - Mix in 3-8 ounces of water or juice before administration When administering in feeding tube, flush before and after per policy and monitor potassium levels potassium chloride IVPB 10 mEq/100 mL in water (0.1 mEq/mL premix)(Linked Group 6) 10 mEq, intravenous, at 100 mL/hr, Administer over 60 Minutes, As needed, for potassium replacement, Starting on 01/01/24 at 1858, Administer Potassium Chloride IVPB in 10 mEq increments. Maximum infusion rates: Central Line = 20 mEq/hour; Peripheral Line = 10 mEq/hour (10 mEq/100 mL). If dose administered, recheck potassium level 1 hour after infusion complete. For potassium level 3.4 to 3.8 mmol/L and Serum Creatinine 1.2 or less = 30 mEq For potassium level 3.1 to 3.3 mmol/L and Serum Creatinine 1.2 or less = 40 mEq For potassium level 3 mmol/L or less and Serum Creatinine 1.2 or less = 50 mEq For potassium level 3.4 to 3.8 mmol/L and Serum Creatinine greater than 1.2 = 20 mEq For potassium level 3.1 to 3.3 mmol/L and Serum Creatinine greater than 1.2 = 30 mEq For potassium level 3 mmol/L or less and Serum Creatinine greater than 1.2 = 40 mEq VESICANT (YELLOW) Infuse each 10 mEq over a minimum of 1 hour. potassium chloride IVPB 10 mEq/50 mL in water (0.2 mEq/mL premix)(Linked Group 6) 10 mEq, intravenous, at 50 mL/hr, Administer over 1 Hours, As needed, for potassium replacement, Starting on 01/01/24 at 1858, Administer Potassium Chloride IVPB in 10 mEq increments. Maximum infusion rates: Central Line = 20 mEq/hour. Administer via Central Line Only. If dose administered, recheck potassium level 1 hour after infusion complete. For potassium level 3.4 to 3.8 mmol/L and Serum Creatinine 1.2 or less = 30 mEq For potassium level 3.1 to 3.3 mmol/L and Serum Creatinine 1.2 or less = 40 mEq For potassium level 3 mmol/L or less and Serum Creatinine 1.2 or less = 50 mEq For potassium level 3.4 to 3.8 mmol/L and Serum Creatinine greater than 1.2 = 20 mEq For potassium level 3.1 to 3.3 mmol/L and Serum Creatinine greater than 1.2 = 30 mEq For potassium level 3 mmol/L or less and Serum Creatinine greater than 1.2 = 40 mEq VESICANT (YELLOW) sod phos di, mono-K phos mono (K-PHOS NEUTRAL) 250 mg tablet 2 tablet(Linked Group 7) 2 tablet, oral, As needed, for phosphorous level 2.3 mg/dL or less, Starting on 01/01/24 at 1858, If dose administered, recheck phosphorus level 4 hours after last dose. Look-alike/sound-alike medication - verify indication for use. Give with a full glass of water. sodium phosphate 20 mmol in sodium chloride 0.9 % 100 mL IVPB(Linked Group 7) 20 mmol, intravenous, at 26.7 mL/hr, Administer over 4 Hours, As needed, for phosphorous level 2.3 mg/dL or less, Starting on 01/01/24 at 1858, Administer over 4 hours via dedicated line(central line). If administered, recheck phosphorus level 4 hours after infusion complete. Infuse using central line access. sodium phosphate 20 mmol in sodium chloride 0.9 % 250 mL IVPB(Linked Group 7) 20 mmol, intravenous, at 42.8 mL/hr, Administer over 6 Hours, As needed, for phosphorous level 2.3 mg/dL or less, Starting on 01/01/24 at 1858, Administer over 6 hours via dedicated line (peripheral line). If administered, recheck phosphorus level 4 hours after infusion complete. Linked Groups Order Group 1: cefEPime (MAXIPIME) 1,000 mg in sodium chloride 0.9 % 50 mL IVPB-MBP (COMPLETED) 1,000 mg, intravenous, at 100 mL/hr, Administer over 30 Minutes, Once, On Wed01/04/24 at 1200, For 1 dose, ADD-VANTAGE/MBP- Discard 24 hours after activating; dissolve drug prior to administration. Protect dry powder vial from light., Indication: UTI Followed by cefEPime (MAXIPIME) 1,000 mg in sodium chloride 0.9 % 50 mL IVPB-MBP (CANCELED)Jump to med 1,000 mg, intravenous, at 12.5 mL/hr, Administer over 4 Hours, Every 12 hours, First dose on Wed01/04/24 at 2000, ADD-VANTAGE/MBP- Discard 24 hours after activating; dissolve drug prior to administration. Protect dry powder vial from light., Indication: UTI Group 2: calcium gluconate IVPB 1000 mg/50 mL (20 mg/mL premix)Jump to med 1,000 mg, intravenous, at 50 mL/hr, Administer over 60 Minutes, As needed, for ionized calcium level 3.5 to 4.4 mg/dL, Starting on 01/01/24 at 1858, Recheck ionized calcium 6 hours after infusion. Hold calcium replacement for phosphorus greater than 5.5 mg/dL. VESICANT (RED) Or calcium gluconate IVPB 2000 mg/100 mL (20 mg/mL premix)Jump to med 2,000 mg, intravenous, at 100 mL/hr, Administer over 60 Minutes, As needed, for ionized calcium level 3 to 3.4 mg/dL, Starting on 01/01/24 at 1858, Recheck ionized calcium 6 hours after infusion. Hold calcium replacement for phosphorus greater than 5.5 mg/dL. VESICANT (RED) Or calcium gluconate IVPB 1000 mg/50 mL (20 mg/mL premix)Jump to med 3,000 mg, intravenous, at 150 mL/hr, Administer over 60 Minutes, As needed, for ionized calcium level less than 3 mg/dL, Starting on 01/01/24 at 1858, CALL PHYSICIAN if this dose is administered. Recheck ionized calcium 6 hours after infusion. Hold calcium replacement for phosphorus greater than 5.5 mg/dL. VESICANT (RED) Group 3: insulin regular (HumuLIN R,NovoLIN R) injection 10 Units (COMPLETED) 10 Units, intravenous, Once, On Wed01/04/24 at 0915, For 1 dose, Look-alike/sound-alike medication - verify indication for use. Prandial/supplemental insulin. Stable for 28 days at room temperature. And dextrose 50 % in water (D50W) 50% solution 25 gJump to med 25 g, intravenous, Once as needed, low blood sugar, as needed for Pre-insulin glucose level 150-250 mg/dL, Starting on Wed01/04/24 at 0909, For 1 dose, VESICANT (RED) Warning: HYPERTONIC solution. And dextrose 50 % in water (D50W) 50% solution 50 g (COMPLETED) 50 g, intravenous, Once as needed, low blood sugar, as needed for Pre-insulin glucose level less than 150 mg/dL, Starting on Wed01/04/24 at 0909, For 1 dose, VESICANT (RED) Warning: HYPERTONIC solution. Group 4: magnesium sulfate IVPB 2000 mg/50 mL in iso-osmotic water (40 mg/mL premix)Jump to med 2,000 mg, intravenous, at 25 mL/hr, Administer over 120 Minutes, As needed, for magnesium level 1.7 to 1.9 mg/dL or ionized magnesium level 0.45 to 0.5 mmol/L, Starting on 01/01/24 at 1858, Use premix solution. Default to ionized magnesium level in cases where patient has both magnesium and ionized magnesium results. If administered, check ionized magnesium (or total magnesium if ionized magnesium unavailable) level 4 hours after infusion. Or magnesium sulfate IVPB 4000 mg/100 mL in iso-osmotic water (40 mg/mL premix)Jump to med 4,000 mg, intravenous, at 25 mL/hr, Administer over 240 Minutes, As needed, for magnesium level 1.6 mg/mL or less, or ionized magnesium level 0.44 mmol/L or less, Starting on 01/01/24 at 1858, Use premix solution. Default to ionized magnesium level in cases where patient has both magnesium and ionized magnesium results. If administered, check ionized magnesium (or total magnesium if ionized magnesium unavailable) level 4 hours after infusion. Group 5: potassium chloride (K-TAB,KLOR-CON) CR tablet 20-50 mEqJump to med 20-50 mEq, oral, As needed, for potassium replacement, Starting on 01/01/24 at 1858, Progress to oral potassium replacement when patient tolerating oral intake. If dose administered, recheck potassium level 4 hours after last dose. For potassium level 3.4 to 3.8 mmol/L and Serum Creatinine 1.2 or less=30 mEq. For potassium level 3.1 to 3.3 mmol/L and Serum Creatinine 1.2 or less=40 mEq. For potassium level 3 mmol/L or less and Serum Creatinine 1.2 or less=50 mEq. For potassium level 3.4 to 3.8 mmol/L and Serum Creatinine greater than 1.2=20 mEq. For potassium level 3.1 to 3.3 mmol/L and Serum Creatinine greater than 1.2=30 mEq. For potassium level 3 mmol/L or less and Serum Creatinine greater than 1.2=40 mEq. Do not crush or chew. Or potassium chloride (KAYCIEL) 20 mEq/15 mL solution 20-50 mEqJump to med 20-50 mEq, oral, As needed, potassium replacement, Starting on 01/01/24 at 1858, Progress to oral potassium replacement when patient tolerating oral intake. If dose administered, recheck potassium level 4 hours after last dose. For potassium level 3.4 to 3.8 mmol/L and Serum Creatinine 1.2 or less=30 mEq (22.5mL). For potassium level 3.1 to 3.3 mmol/L and Serum Creatinine 1.2 or less=40 mEq (30mL). For potassium level 3 mmol/L or less and Serum Creatinine 1.2 or less=50 mEq (37.5mL). For potassium level 3.4 to 3.8 mmol/L and Serum Creatinine greater than 1.2=20 mEq (15mL). For potassium level 3.1 to 3.3 mmol/L and Serum Creatinine greater than 1.2=30 mEq (22.5mL). For potassium level 3 mmol/L or less and Serum Creatinine greater than 1.2=40 mEq (30mL). Must dilute before use - Mix in 3-8 ounces of water or juice before administration When administering in feeding tube, flush before and after per policy and monitor potassium levels Group 6: potassium chloride IVPB 10 mEq/50 mL in water (0.2 mEq/mL premix)Jump to med 10 mEq, intravenous, at 50 mL/hr, Administer over 1 Hours, As needed, for potassium replacement, Starting on 01/01/24 at 1858, Administer Potassium Chloride IVPB in 10 mEq increments. Maximum infusion rates: Central Line = 20 mEq/hour. Administer via Central Line Only. If dose administered, recheck potassium level 1 hour after infusion complete. For potassium level 3.4 to 3.8 mmol/L and Serum Creatinine 1.2 or less = 30 mEq For potassium level 3.1 to 3.3 mmol/L and Serum Creatinine 1.2 or less = 40 mEq For potassium level 3 mmol/L or less and Serum Creatinine 1.2 or less = 50 mEq For potassium level 3.4 to 3.8 mmol/L and Serum Creatinine greater than 1.2 = 20 mEq For potassium level 3.1 to 3.3 mmol/L and Serum Creatinine greater than 1.2 = 30 mEq For potassium level 3 mmol/L or less and Serum Creatinine greater than 1.2 = 40 mEq VESICANT (YELLOW) Or potassium chloride IVPB 10 mEq/100 mL in water (0.1 mEq/mL premix)Jump to med 10 mEq, intravenous, at 100 mL/hr, Administer over 60 Minutes, As needed, for potassium replacement, Starting on 01/01/24 at 1858, Administer Potassium Chloride IVPB in 10 mEq increments. Maximum infusion rates: Central Line = 20 mEq/hour; Peripheral Line = 10 mEq/hour (10 mEq/100 mL). If dose administered, recheck potassium level 1 hour after infusion complete. For potassium level 3.4 to 3.8 mmol/L and Serum Creatinine 1.2 or less = 30 mEq For potassium level 3.1 to 3.3 mmol/L and Serum Creatinine 1.2 or less = 40 mEq For potassium level 3 mmol/L or less and Serum Creatinine 1.2 or less = 50 mEq For potassium level 3.4 to 3.8 mmol/L and Serum Creatinine greater than 1.2 = 20 mEq For potassium level 3.1 to 3.3 mmol/L and Serum Creatinine greater than 1.2 = 30 mEq For potassium level 3 mmol/L or less and Serum Creatinine greater than 1.2 = 40 mEq VESICANT (YELLOW) Infuse each 10 mEq over a minimum of 1 hour. Group 7: sodium phosphate 20 mmol in sodium chloride 0.9 % 250 mL IVPBJump to med 20 mmol, intravenous, at 42.8 mL/hr, Administer over 6 Hours, As needed, for phosphorous level 2.3 mg/dL or less, Starting on 01/01/24 at 1858, Administer over 6 hours via dedicated line (peripheral line). If administered, recheck phosphorus level 4 hours after infusion complete. Or sodium phosphate 20 mmol in sodium chloride 0.9 % 100 mL IVPBJump to med 20 mmol, intravenous, at 26.7 mL/hr, Administer over 4 Hours, As needed, for phosphorous level 2.3 mg/dL or less, Starting on 01/01/24 at 1858, Administer over 4 hours via dedicated line(central line). If administered, recheck phosphorus level 4 hours after infusion complete. Infuse using central line access. Or sod phos di, mono-K phos mono (K-PHOS NEUTRAL) 250 mg tablet 2 tabletJump to med 2 tablet, oral, As needed, for phosphorous level 2.3 mg/dL or less, Starting on 01/01/24 at 1858, If dose administered, recheck phosphorus level 4 hours after last dose. Look-alike/sound-alike medication - verify indication for use. Give with a full glass of water. FOR RECORDS PERTAINING TO PATIENTS WHO ARE [...] BE BASED ON THE PRIMARY CLINICAL RECORDS. [employer] provides no warranty or guarantee of the accuracy or completeness of information in this document.
--- NOTE | 2024-04-07 23:48 | ED_ITS ---
HPI - Altered Mental Status General Chief Complaint: Altered Mental Status Stated Complaint: confusion Time Seen by Provider: 04/07/24 23:22 Source: family Source comment: Daughter Mode of arrival: Wheelchair Limitations: altered mental status History of Present Illness HPI narrative: Patient is 88-year-old female who is coming to the ER after she according to her daughter was confused, the patient apparently was standing in her where her son also lives with her, the patient son have flu a and his isolated at home with her. According to the son apparently the patient stood at the counter there and she did not remember why she was standing there Upon arrival the patient herself does not have any complain There was no other concern of decreased p.o. intake or any cough or fever, also the patient did had some cough herself in the ER while I was getting the history Related Data Home Medications ?Medication ?Instructions ?Recorded ?Confirmed clopidogrel 75 mg tablet (Plavix) 75 mg PO DAILY 09/27/22 04/07/24 simvastatin 40 mg tablet 40 mg PO DAILY 09/27/22 04/07/24 spironolactone 25 mg tablet 50 mg PO DAILY 09/27/22 04/07/24 acetaminophen 500 mg tablet 1,000 mg PO Q6H PRN pain 12/29/22 04/07/24 budesonide 3 mg 3 mg PO DAILY 12/29/22 04/07/24 capsule,delayed,extended release cholecalciferol (vitamin D3) 50 50 mcg PO DAILY 12/29/22 04/07/24 mcg (2,000 unit) tablet (D3 DOTS) estradiol 0.01% (0.1 mg/gram) 1 g vaginal .TWICE A WEEK 12/29/22 04/07/24 vaginal cream (Estrace) loperamide 2 mg capsule (Imodium 2 mg PO Q4H 12/29/22 04/07/24 A-D) melatonin 5 mg tablet 5 mg PO DAILY 12/29/22 04/07/24 zinc gluconate 50 mg tablet 50 mg PO DAILY 12/29/22 04/07/24 [id number] 2 cap PO QID 07/25/23 07/25/23 36,000-114,000-180,000 unit capsule,delay rel (Creon) pantoprazole 20 mg tablet,delayed 20 mg PO DAILY 06/16/24 02/28/25 release bismuth subsalicylate 262 mg 3 tab PO DAILY 04/07/24 04/07/24 chewable tablet (Bismuth) gabapentin 100 mg capsule 100 mg PO 04/07/24 multivitamin (Daily Multi-Vitamin 1 tab PO DAILY 04/07/24 04/07/24 tablet) nebivolol 10 mg tablet 10 mg PO DAILY 04/07/24 04/07/24 Previous Rx's ?Medication ?Instructions ?Recorded Lactobacillus acidophilus, 1 packet PO BID 30 days #60 ea 01/01/23 [place] 100 million cell granules packet (Floranex) ciprofloxacin HCl 250 mg tablet 250 mg PO BID 3 days #6 tabs 07/25/23 (Cipro) cephalexin 500 mg capsule 500 mg PO Q8H 7 days #21 caps 04/08/24 Allergies Allergy/AdvReac Type Severity Reaction Status Date / Time promethazine (From Phenergan) Allergy Severe Agitated Verified 04/07/24 23:18 levofloxacin AdvReac Severe Drowsy Verified 04/07/24 23:18 Penicillins AdvReac Severe Unknown Verified 04/07/24 23:18 Antihistamines - Alkylamine AdvReac Intermediate Unknown Verified 04/07/24 23:18 Review of Systems ROS Status of ROS 10 or more systems reviewed and unremark able except as noted in history and below [facility] Medical History (Updated 04/08/24 @ 01:36 by Clementina Madera MD) Cataracts, bilateral ?H26.9 - Unspecified cataract (ICD-10) HTN (hypertension) ?I10 - Essential (primary) hypertension (ICD-10) Hypomagnesemia ?E83.42 - Hypomagnesemia (ICD-10) Peripheral edema ?R60.0 - Localized edema (ICD-10) GERD (gastroesophageal reflux disease) ?K21.9 - Gastro-esophageal reflux disease without esophagitis (ICD-10) IBD (inflammatory bowel disease) ?K52.9 - Noninfective gastroenteritis and colitis, unspecified (ICD-10) CAD (coronary artery disease) ?I25.10 - Atherosclerotic heart disease of [place] coronary artery without angina pectoris (ICD-10) 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 (ICD-10) Cholecystectomy planned Cataract ?H26.9 - Unspecified cataract (ICD-10) Acute hypokalemia ?E87.6 - Hypokalemia (ICD-10) Clostridium difficile colitis ?A04.72 - Enterocolitis due to Clostridium difficile, not specified as recurrent (ICD-10) Acute dehydration ?E86.0 - Dehydration (ICD-10) Acute pain of right shoulder ?M25.511 - Pain in right shoulder (ICD-10) Acute hyponatremia ?E87.1 - Hypo-osmolality and hyponatremia (ICD-10) Urinary tract infection ?N39.0 - Urinary tract infection, site not specified (ICD-10) Altered mental status ?R41.82 - Altered mental status, unspecified (ICD-10) Surgical History (Updated 07/25/23 @ 19:48 by Arcadio Rowland) History of hysterectomy ?Z90.710 - Acquired absence of both cervix and uterus (ICD-10) 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 - Presence of aortocoronary bypass graft (ICD-10) History of left hip replacement ?Z96.642 - Presence of left artificial hip joint (ICD-10) S/P CABG x 5 ?Z95.1 - Presence of aortocoronary bypass graft (ICD-10) Family History (Updated 12/29/22 @ 14:40 by Melissa Britt) Father Family history of CHF (congestive heart failure) Family history of hypertension Brother Family history of cancer Sister Family history of cancer Family history of myocardial infarction Mother Family history of hypertension Family history of stroke Social History Within the past year, how often did you have a drink containing alcohol: monthly or less Within the past year, how many standard drinks containing alcohol did you have on a typical day: 1 or 2 Within the past year, how often did you have six or more drinks on one occasion: never Total score: 0 Score interpretation: A score less than 3 is consistent with normal alcohol consumption. Smoking status: Never smoker Non-prescribed substance use: denies use Highest level of school completed/degree received: 9th grade Are you now , , , , never or living with a partner: In a typical week, how many times do you talk on the telephone with family, friends, or neighbors: twice per week How often do you get together with friends or relatives: twice per week How often do you attend quaker or hinduism services: never Do you belong to any clubs or organizations such as quaker groups unions, fraternal or athletic groups, or school groups: no Total score: 1 Score interpretation: A score of less than or equal to 1 indicates the most socially isolated. Little interest or pleasure in doing things: not at all Feeling down, depressed, or hopeless: not at all Exam Narrative Exam Narrative: Nurses notes and vital signs reviewed and patient is not hypoxic. General: Well-appearing and in no apparent distress. Skin: Warm, dry, no pallor noted. No rash. Head: Normocephalic, atraumatic. Neck: Supple, non-tender. Eye: Pupils are equal, round and EOMI. No scleral icterus. Ears, Nose, Mouth, and Throat: TM are clear, no nasal mucosal hypertrophy. Oral mucosa is moist, no posterior oropharynx erythema, uvula is mid-line Cardiovascular: Regular Rate and Rhythm without murmur, gallop or rub. Respiratory: No accessory muscle use or respiratory distress. Lungs are clear to auscultation, no wheezing, rales or rhonchi Chest Wall: no tenderness Back: No midline thoracic or lumbar vertebral tenderness. No CVA tenderness Musculoskeletal: normal ROM, no calf or popliteal tenderness, chronic lower extremity edema. GI: Abdomen is soft, non-distended. Normal bowel sounds. No masses appreciated. No tenderness to palpation. No rebound, guarding, or rigidity noted. Neurological: A&O x3 No cranial nerve dysfunction observed. No truncal ataxia. Moves all extremities. Sensation intact. NIHSS score of 0 Psychiatric: Cooperative and interactive. Normal mood and affect. Constitutional Vital Signs, click to edit/add: Last Vital Signs Temp 100.1 F 04/08/24 01:54 Pulse 67 04/08/24 01:54 Resp 20 04/08/24 01:54 BP 162/50 H 04/08/24 01:54 Pulse Ox 91 L 04/08/24 01:54 O2 Del Method Room Air 04/08/24 01:54 Course Vital Signs Vital signs: Vital Signs Temperature 98.7 F 04/07/24 23:13 Pulse Rate 74 04/07/24 23:13 Respiratory Rate 20 04/07/24 23:13 Blood Pressure 200/63 H 04/07/24 23:13 Pulse Oximetry 100 04/07/24 23:13 Temperature 100.1 F 04/08/24 01:54 Pulse Rate 67 04/08/24 01:54 Respiratory Rate 20 04/08/24 01:54 Blood Pressure 162/50 H 04/08/24 01:54 Pulse Oximetry 91 L 04/08/24 01:54 Oxygen Delivery Method Room Air 04/08/24 01:54 MDM - Altered Mental Status MDM Narrative Medical decision making narrative: The patient EKG in the ER showing sinus rhythm with a heart rate of 79 with a right bundle branch block The CBC showed no acute pathology and the chemistry showed no acute pathology as well The patient already has been exposed to her son at home who had flu a and she did had a temperature in the ER 102.6 the patient chest x-ray showed no acute finding on the prelim reading Urinalysis positive for UTI with the nitrite------ the patient will be covered with Keflex although she have a history of penicillin allergy but she did take Keflex before with no reaction The patient also had a CT head showing no acute pathology Patient had her fever controlled in the ER with Tylenol after which she was feeling better Right now although the patient flu test came negative in the ER but her presentation with a cough and fever is mostly secondary to influenza especially with the fact that her son at home have flu a The daughter at bedside instructed about the importance of monitoring for fever control and hydration well in addition to monitoring for improvement Specially that I did explain to her that the fever mostly secondary to influenza and that her blood workup did not show any leukocytosis or any signs of severe infection but in case of any continuous fever or any new concern the patient to be brought back to the ER The patient is to follow up with primary care physician in next 2-3 days or to return to the emergency department should any of the signs or symptoms worsen or new symptoms develop. The patient agrees with the following Diagnosis and Treatment plan and the patient will be discharged home. Lab Data Labs: Lab Results 04/07/24 04/08/24 Range/Units 23:25 00:55 WBC 8.1 (4.0-11.0) 10^3/uL RBC 3.74 L (4.20-5.40) 10^6/uL Hgb 11.3 L (12.0-16.0) g/dL Hct 34.5 L (36.0-48.0) % MCV 92.2 (81.0-99.0) fL MCH 30.2 (26.7-34.0) pg MCHC 32.8 (29.9-35.2) g/dL RDW 14.1 (11.0-15.0) % Plt Count 287 (150-450) 10^3/uL MPV 9.5 (9.5-13.5) fL Seg Neuts % (Manual) 80.0 H (43.0-75.0) Lymphocytes % (Manual) 9.0 L (20.5-60.0) % Monocytes % (Manual) 11.0 (1.7-12.0) % Eosinophils % (Manual) 0.0 L (0.9-7.0) % Basophils % (Manual) 0.0 L (0.2-2.0) % Neutrophils # (Manual) 6.48 (1.4-6.5) 10^3/uL Lymphocytes # (Manual) 0.72 L (1.20-3.80) 10^3/uL Monocytes # (Manual) 0.89 H (0.30-0.80) 10^3/uL Eosinophils # (Manual) 0.00 (0.00-0.70) 10^3/uL Basophils # (Manual) 0.00 (0.00-0.10) 10^3/uL PT 11.6 (9.0-11.6) sec INR 1.11 Sodium 136 (136-145) mmol/L Potassium 4.3 (3.5-5.1) mmol/L Chloride 103 (98-107) mmol/L Carbon Dioxide 23.7 (21.0-32.0) mmol/L Anion Gap 13.6 BUN 22.0 H (7.0-18.0) mg/dL Creatinine 1.43 H (0.55-1.02) mg/dL Est GFR ( Amer) 42 L (>=60 mL/min/1.73m^2) Est GFR (Non-Af Amer) 35 L (>=60 mL/min/1.73m^2) BUN/Creatinine Ratio 15.4 Glucose 101 (74-106) mg/dL Lactate 1.2 (0.4-2.0) mmol/L Calcium 9.5 (8.5-10.1) mg/dL Total Bilirubin 0.6 (0.2-1.0) mg/dL AST 20 (15-37) U/L ALT 17 (14-59) U/L Alkaline Phosphatase 36 L (46-116) U/L Troponin I High Sens 19.1 (4.0-51.3) pg/mL Total Protein 7.3 (6.4-8.2) g/dL Albumin 3.5 (3.4-5.0) g/dL Globulin 3.8 g/dL Albumin/Globulin Ratio 0.9 Urine Color Lt. yellow (YELLOW) Urine Clarity Clear (CLEAR) Urine pH 5.5 (5.0-9.0) Ur Specific [place] 1.020 (1.005-1.025) Urine Protein Trace (NEG/TRACE) mg/dL Urine Glucose (UA) Negative (NEGATIVE) mg/dL Urine Ketones Negative (NEGATIVE) mg/dL Urine Occult Blood Moderate A (NEGATIVE) Urine Nitrite Positive A (NEGATIVE) Urine Bilirubin Negative (NEGATIVE) Urine Urobilinogen 0.2 (0.2-1.0) EU/dL Ur Leukocyte Esterase Trace A (NEGATIVE) Urine RBC 0-2 (0-2) #/HPF Urine WBC 5-10 A (NONE SEEN) #/HPF Ur Squamous Epith Cells Few A (NONE/RARE) #/LPF Urine Crystals None seen (None Seen) #/HPF Urine Bacteria Small A (NONE SEEN) #/HPF Urine Casts None seen (NONE SEEN) #/LPF Urine Mucus None seen (NONE SEEN) Ur Culture Indicated? Yes-[facility] [place] Influenza Type A Ag Negative Influenza Type B Ag Negative SARS-CoV-2 Ag (CV2AG) Negative (NEGATIVE) Discharge Plan Discharge Chief Complaint: Altered Mental Status Clinical Impression: Exposure to the flu, Fever, Confusion, Acute UTI Patient Disposition: Home, Self-Care Time of Disposition Decision: 01:36 Condition: Good Mode of Transportation: Private Vehicle Prescriptions / Home Meds: New cephalexin 500 mg capsule 500 mg PO Q8H 7 Days Qty: 21 0RF No Action simvastatin 40 mg tablet 40 mg PO DAILY spironolactone 25 mg tablet 50 mg PO DAILY clopidogrel [Plavix] 75 mg tablet 75 mg PO DAILY acetaminophen 500 mg tablet 1,000 mg PO Q6H PRN (Reason: pain) budesonide 3 mg capsule,delayed,extend.release 3 mg PO DAILY zinc gluconate 50 mg tablet 50 mg PO DAILY cholecalciferol (vitamin D3) [D3 DOTS] 50 mcg (2,000 unit) tablet 50 mcg PO DAILY melatonin 5 mg tablet 5 mg PO DAILY loperamide [Imodium A-D] 2 mg capsule 2 mg PO Q4H Rx Instructions: administer after each loose stool until symptoms controlled; do not exceed 8 mg per 24 hrs estradiol [Estrace] 0.01 % (0.1 mg/gram) cream 1 g vaginal .TWICE A WEEK Lactobacillus acidoph-L.bulgar [Floranex] 100 million cell Granules In Packet 1 packet PO BID 30 Days Qty: 60 11RF Creon 36,000-114,000- 180,000 unit capsule,delayed release(DR/EC) 2 cap PO QID pantoprazole 20 mg tablet,delayed release (DR/EC) 20 mg PO DAILY ciprofloxacin HCl [Cipro] 250 mg tablet 250 mg PO BID 3 Days Qty: 6 0RF nebivolol 10 mg tablet 10 mg PO DAILY multivitamin [Daily Multi-Vitamin] Tablet 1 tab PO DAILY gabapentin 100 mg capsule 100 mg PO bismuth subsalicylate [Bismuth] 262 mg tablet,chewable 3 tab PO DAILY Print Language: Nepali Instructions: Influenza (DC), Urinary Tract Infection in Older Adults (ED) Referrals: Shirlene Vergara MD [Primary Care Provider] - 1 week Discharge Date/Time: 04/08/24 02:52
[2024-04-07 23:58] LABS: Hematocrit 34.5 % (36.0-48.0); Hemoglobin 11.3 g/dL (12.0-16.0); Mean Corpuscular HGB Conc 32.8 g/dL (29.9-35.2); Mean Corpuscular Hemoglobin 30.2 pg (26.7-34.0); Mean Corpuscular Volume 92.2 fL (81.0-99.0); Mean Platelet Volume 9.5 fL (9.5-13.5); Platelet Count 287 10^3/uL (150-450); Red Blood Count 3.74 10^6/uL (4.20-5.40); Red Cell Distribution Width 14.1 % (11.0-15.0); White Blood Count 8.1 10^3/uL (4.0-11.0)
[2024-04-08 00:02] LABS: INR 1.11; Prothrombin Time 11.6 sec (9.0-11.6)
[2024-04-08 00:06] VITALS: PULSE 79
--- NOTE | 2024-04-08 00:06 | ECG_ITS ---
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
[2024-04-08 00:07] LABS: Alanine Aminotransferase 17 U/L (14-59); Albumin Globulin Ratio 0.9; Albumin Level 3.5 g/dL (3.4-5.0); Alkaline Phosphatase 36 U/L (46-116); Anion Gap 13.6; Aspartate Amino Transferase 20 U/L (15-37); BUN Creatinine Ratio 15.4; Bilirubin Total 0.6 mg/dL (0.2-1.0); Calcium 9.5 mg/dL (8.5-10.1); Carbon Dioxide 23.7 mmol/L (21.0-32.0); Chloride 103 mmol/L (98-107); Estimated GFR (African America 42 (>=60 mL/min/1.73m^2); Estimated GFR (Non-African Ame 35 (>=60 mL/min/1.73m^2); Globulin 3.8 g/dL; Glucose 101 mg/dL (74-106); Potassium 4.3 mmol/L (3.5-5.1); Sodium 136 mmol/L (136-145); Total Protein 7.3 g/dL (6.4-8.2); Troponin I High Sensitivity 19.1 pg/mL (4.0-51.3)
[2024-04-08 00:09] LABS: Lactate/Lactic Acid 1.2 mmol/L (0.4-2.0)
[2024-04-08 00:16] LABS: Influenza Virus A Antigen Negative; Influenza Virus B Antigen Negative; Internal Control Within Normal Limits; SARS-CoV-2 Ag NEGATIVE (NEGATIVE)
[2024-04-08] MEDS: 0.9 % SODIUM CHLORIDE 1,000 ML 500 ML IV (00:18)
[2024-04-08] MEDS: ACETAMINOPHEN 325 MG TABLET 650 MG PO (00:19)
[2024-04-08 00:27] LABS: Segmented Neut Absolute Manual 6.48 10^3/uL (1.4-6.5)
[2024-04-08 00:28] LABS: Lymphocytes Absolute Manual 0.72 10^3/uL (1.20-3.80); Monocytes Absolute Manual 0.89 10^3/uL (0.30-0.80)
[2024-04-08 01:05] LABS: Bilirubin Urine NEGATIVE (NEGATIVE); Blood Urine MODERATE (NEGATIVE); Clarity Urine CLEAR (CLEAR); Color Urine LT. YELLOW (YELLOW); Glucose Urine UA NEGATIVE (NEGATIVE); Ketones Urine NEGATIVE (NEGATIVE); Leukocyte Esterase Urine TRACE (NEGATIVE); Nitrite Urine POSITIVE (NEGATIVE); Protein Urine TRACE mg/dL (NEG/TRACE); Urobilinogen Urine 0.2 EU/dL (0.2-1.0); pH Urine 5.5 (5.0-9.0)
[2024-04-08 01:08] LABS: Urine Microscopic Indicated YES
[2024-04-08 01:11] LABS: Bacteria Urine SMALL #/HPF (NONE SEEN); Cast Seen? NONE SEEN #/LPF (NONE SEEN); Crystals Seen? None Seen #/HPF (None Seen); Mucus Urine NONE SEEN (NONE SEEN); RBC Urine 0-2 #/HPF (0-2); Squamous Epithelial Cell Urine FEW #/LPF (NONE/RARE); Urine Culture Indicated YES-FRMC
[2024-04-08] MEDS: CEFTRIAXONE 1,000 MG in 0.9 % SODIUM CHLORIDE 50 ML 100 MG IV (01:44)
[2024-04-08 01:54] VITALS: BP 162/50; PULSE 67; TEMP 37.8; O2SAT 91
== END 2024-04-08 02:52 | disposition home or self-care (01) ==
PROVIDERS: Emergency Provider Emergency Medicine; PCP Family Medicine
DX: N39.0 Urinary tract infection, site not specified (principal); R41.0 Disorientation, unspecified; Z90.710 Acquired absence of both cervix and uterus; Z96.642 Presence of left artificial hip joint; Z95.1 Presence of aortocoronary bypass graft; R50.9 Fever, unspecified; Z88.0 Allergy status to penicillin; Z20.828 Contact with and (suspected) exposure to other viral communicable diseases
CPT/HCPCS: 36415; 70450; 71045; 80053; 81001; 83605; 84484; 85007; 85027; 85610; 87086; 87150; 87186; 87804; 87811; 93005; 96361; 96365; 99285; J0696

== ENCOUNTER 2024-04-24 12:47 | Inpatient (IN) | payer MEDICARE, BC, SELFPAY ==
[2024-04-24] VITALS (37 sets, daily range): BP systolic 163–201; BP diastolic 54–90; PULSE 52–74; TEMP 37–37.5; O2SAT 91–100; BMI 20.1; BMI 19.8
--- NOTE | 2024-04-24 13:24 | ECG_ITS ---
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 Measurements Intervals [place] Rate: 55 P: 60 WA: 170 QRS: -81 QRSD: 150 T: 47 QT: 468 QTc: 457 Interpretive Statements 1100 Sinus rhythm 2450 Right bundle branch block 5222 Moderate voltage criteria for LVH, may be normal variant 7200 Abnormal left axis deviation 9150 abnormal ECG Compared to ECG 04/08/2024 00:06:39 Left-axis deviation now present Left anterior fascicular block no longer present Electronically Signed On 04-24-2024 17:39:00 EDT by TYE TEMPLE M.D.
--- NOTE | 2024-04-24 13:26 | ED_ITS ---
HPI HPI - General Adult General Chief complaint: Abdominal Pain Stated complaint: ABDOMINAL PAIN, HYPERTENSION Time Seen by Provider: 04/24/24 13:07 Source: patient and family Mode of arrival: Wheelchair Limitations: no limitations History of Present Illness HPI narrative: Patient is an 88-year-old female who presents to the emergency department from [facility] where she is a resident for evaluation of epigastric abdominal pain that began about 6 hours ago. She has been dry heaving throughout the morning. She has not had any vomiting or diarrhea. She does have a history of acid reflux and ulcers. She is currently on Plavix. Last endoscopy was approximately 10 to 12 years ago. She has had a colonoscopy within the last 10 years. She sees a GI doctor at [facility]. She has had a previous cholecystectomy. She has no flank or back pain. No medications taken prior to arrival for her symptoms. She did not take her regular medications this morning because of the dry heaving and arrives to the ER hypertensive. Related Data Home Medications ?Medication ?Instructions ?Recorded ?Confirmed clopidogrel 75 mg tablet (Plavix) 75 mg PO DAILY 09/27/22 04/07/24 simvastatin 40 mg tablet 40 mg PO DAILY 09/27/22 04/07/24 spironolactone 25 mg tablet 50 mg PO DAILY 09/27/22 04/07/24 acetaminophen 500 mg tablet 1,000 mg PO Q6H PRN pain 12/29/22 04/07/24 budesonide 3 mg 3 mg PO DAILY 12/29/22 04/07/24 capsule,delayed,extended release cholecalciferol (vitamin D3) 50 50 mcg PO DAILY 12/29/22 04/07/24 mcg (2,000 unit) tablet (D3 DOTS) estradiol 0.01% (0.1 mg/gram) 1 g vaginal .TWICE A WEEK 12/29/22 04/07/24 vaginal cream (Estrace) loperamide 2 mg capsule (Imodium 2 mg PO Q4H 12/29/22 04/07/24 A-D) melatonin 5 mg tablet 5 mg PO DAILY 12/29/22 04/07/24 zinc gluconate 50 mg tablet 50 mg PO DAILY 12/29/22 04/07/24 pzdkqk-bhodzewy-[id number] 2 cap PO QID 07/25/23 07/25/23 36,000-114,000-180,000 unit capsule,delay rel (Creon) pantoprazole 20 mg tablet,delayed 20 mg PO DAILY 07/25/23 04/07/24 release bismuth subsalicylate 262 mg 3 tab PO DAILY 04/07/24 04/07/24 chewable tablet (Bismuth) gabapentin 100 mg capsule 100 mg PO 04/07/24 multivitamin (Daily Multi-Vitamin 1 tab PO DAILY 04/07/24 04/07/24 tablet) nebivolol 10 mg tablet 10 mg PO DAILY 04/07/24 04/07/24 Previous Rx's ?Medication ?Instructions ?Recorded Lactobacillus acidophilus, 1 packet PO BID 30 days #60 ea 01/01/23 bulgar[place] 100 million cell granules packet (Floranex) ciprofloxacin HCl 250 mg tablet 250 mg PO BID 3 days #6 tabs 07/25/23 (Cipro) cephalexin 500 mg capsule 500 mg PO Q8H 7 days #21 caps 04/08/24 Allergies Allergy/AdvReac Type Severity Reaction Status Date / Time promethazine (From Phenergan) Allergy Severe Agitated Verified 04/07/24 23:18 levofloxacin AdvReac Severe Drowsy Verified 04/07/24 23:18 Penicillins AdvReac Severe Unknown Verified 04/07/24 23:18 Antihistamines - Alkylamine AdvReac Intermediate Unknown Verified 04/07/24 23:18 Opioid HPI Opioid Management Most Recent Opioid Data: Last Pain Scale 6 04/24/24 16:14 04/24/24 Last APR Pain Assessment 04/24/24 16:14 Review of Systems ROS Constitutional Denies: fever or chills Ears, nose, mouth, and throat Denies: throat pain or nasal congestion Cardiovascular Denies: chest pain Respiratory Denies: shortness of breath or cough Gastrointestinal Reports: abdominal pain and nausea; Denies: vomiting or diarrhea Musculoskeletal Denies: back pain Integumentary/Breast Denies: rash Neurological Denies: headache, numbness in extremities or weakness in extremities Hematologic/Lymphatic Denies: easy bruising or easy bleeding [facility] Medical History (Updated 04/24/24 @ 16:31 by TIFFANIE Richard) Cataracts, bilateral ?H26.9 - Unspecified cataract (ICD-10) HTN (hypertension) ?I10 - Essential (primary) hypertension (ICD-10) Hypomagnesemia ?E83.42 - Hypomagnesemia (ICD-10) Peripheral edema ?R60.0 - Localized edema (ICD-10) GERD (gastroesophageal reflux disease) ?K21.9 - Gastro-esophageal reflux disease without esophagitis (ICD-10) IBD (inflammatory bowel disease) ?K52.9 - Noninfective gastroenteritis and colitis, unspecified (ICD-10) CAD (coronary artery disease) ?I25.10 - Atherosclerotic heart disease of [place] coronary artery without angina pectoris (ICD-10) 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 (ICD-10) Cholecystectomy planned Cataract ?H26.9 - Unspecified cataract (ICD-10) Acute hypokalemia ?E87.6 - Hypokalemia (ICD-10) Clostridium difficile colitis ?A04.72 - Enterocolitis due to Clostridium difficile, not specified as recurrent (ICD-10) Acute dehydration ?E86.0 - Dehydration (ICD-10) Acute pain of right shoulder ?M25.511 - Pain in right shoulder (ICD-10) Acute hyponatremia ?E87.1 - Hypo-osmolality and hyponatremia (ICD-10) Urinary tract infection ?N39.0 - Urinary tract infection, site not specified (ICD-10) Altered mental status ?R41.82 - Altered mental status, unspecified (ICD-10) Surgical History (Updated 07/25/23 @ 19:48 by Arcadio Rowland) History of hysterectomy ?Z90.710 - Acquired absence of both cervix and uterus (ICD-10) 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 - Presence of aortocoronary bypass graft (ICD-10) History of left hip replacement ?Z96.642 - Presence of left artificial hip joint (ICD-10) S/P CABG x 5 ?Z95.1 - Presence of aortocoronary bypass graft (ICD-10) Family History (Updated 12/29/22 @ 14:40 by Melissa Britt) Father Family history of CHF (congestive heart failure) Family history of hypertension Brother Family history of cancer Sister Family history of cancer Family history of myocardial infarction Mother Family history of hypertension Family history of stroke Social History Within the past year, how often did you have a drink containing alcohol: monthly or less Within the past year, how many standard drinks containing alcohol did you have on a typical day: 1 or 2 Within the past year, how often did you have six or more drinks on one occasion: never Total score: 0 Score interpretation: A score less than 3 is consistent with normal alcohol consumption. Smoking status: Never smoker Non-prescribed substance use: denies use Highest level of school completed/degree received: 9th grade Are you now , , , , never or living with a partner: In a typical week, how many times do you talk on the telephone with family, friends, or neighbors: twice per week How often do you get together with friends or relatives: twice per week How often do you attend latter-day or sabianist services: never Do you belong to any clubs or organizations such as latter-day groups unions, [employer] or athletic groups, or school groups: no Total score: 1 Score interpretation: A score of less than or equal to 1 indicates the most socially isolated. Little interest or pleasure in doing things: not at all Feeling down, depressed, or hopeless: not at all Exam Narrative Exam Narrative: Gen.: Awake, alert, in no distress Head: Normocephalic, atraumatic ENT: Moist mucous membranes Respiratory: No respiratory distress, lungs clear bilaterally Cardio: Regular rate and rhythm Gastrointestinal: Abdomen is soft, nondistended tender to palpation with voluntary guarding in the epigastrium Extremities: Moves extremities equally Psych: Normal mood and affect Neuro: No focal neuro deficit Skin: Warm, dry, intact Constitutional Vital Signs, click to edit/add: Last Vital Signs Temp 98.6 F 04/24/24 13:10 Pulse 58 L 04/24/24 16:20 Resp 16 04/24/24 16:20 BP 167/65 H 04/24/24 16:15 Pulse Ox 97 04/24/24 16:20 O2 Del Method Room Air 04/24/24 13:55 Course Vital Signs Vital signs: Vital Signs Temperature 98.6 F 04/24/24 13:10 Pulse Rate 61 04/24/24 13:10 Respiratory Rate 18 04/24/24 13:10 Blood Pressure 192/60 H 04/24/24 13:10 Pulse Oximetry 98 04/24/24 13:10 Oxygen Delivery Method Room Air 04/24/24 13:10 Temperature 98.6 F 04/24/24 13:10 Pulse Rate 58 L 04/24/24 16:20 Respiratory Rate 16 04/24/24 16:20 Blood Pressure 167/65 H 04/24/24 16:15 Pulse Oximetry 97 04/24/24 16:20 Oxygen Delivery Method Room Air 04/24/24 13:55 Medical Decision Making MDM Narrative Medical decision making narrative: Patient was treated with IV Zofran, Protonix and given a GI cocktail for pain. She was still in moderate discomfort was given additional fentanyl. Laboratory studies reviewed and noted showing mild leukocytosis and UTI, otherwise stable lab studies and normal troponin. EKG is unremarkable. CT of the abdomen and pelvis with moderate enteritis. Patient was given IV Cipro for UTI. Blood pressure was labile and she was given Vasotec, hydralazine with some improvement. Discussed outpatient versus admission for management, initially patient wanted to try outpatient management but on going to the bathroom, she had an increase in pain and she and her daughter feel she may be better off being admitted for observation for pain control and nausea control with evalu ation of her blood pressure. She does live alone at independent living. She is stable at time of admission to hospitalist. Blood pressure is 167/65 at time of admission. SUPERVISED APC VISIT, PHYSICIAN ATTESTATION: Based on the medical record the care appears appropriate. ? Medical Records Medical records reviewed: Yes I reviewed the patient's medical records Lab Data Lab results reviewed: Yes I reviewed the patient's lab results Labs: Lab Results 04/24/24 04/24/24 Range/Units 13:29 15:24 WBC 15.2 H (4.0-11.0) 10^3/uL RBC 4.13 L (4.20-5.40) 10^6/uL Hgb 12.1 (12.0-16.0) g/dL Hct 38.0 (36.0-48.0) % MCV 92.0 (81.0-99.0) fL MCH 29.3 (26.7-34.0) pg MCHC 31.8 (29.9-35.2) g/dL RDW 14.3 (11.0-15.0) % Plt Count 430 (150-450) 10^3/uL MPV 9.0 L (9.5-13.5) fL Neut % (Auto) 81.7 H (43.0-75.0) % Lymph % (Auto) 10.6 L (20.5-60.0) % [place] % (Auto) 6.6 (1.7-12.0) % Eos % (Auto) 0.3 L (0.9-7.0) % Baso % (Auto) 0.3 (0.2-2.0) % Neut # (Auto) 12.4 H (1.4-6.5) 10^3/uL Lymph # (Auto) 1.6 (1.2-3.8) 10^3/uL [place] # (Auto) 1.0 H (0.3-0.8) 10^3/uL Eos # (Auto) 0.0 (0.0-0.7) 10^3/uL Baso # (Auto) 0.1 (0.0-0.1) 10^3/uL Abs Immat Gran (auto) 0.07 H (0.00-0.03) 10^3/uL Imm/Tot Granulo (auto) 0.5 (0.0-0.5) % Sodium 138 (136-145) mmol/L Potassium 4.4 (3.5-5.1) mmol/L Chloride 101 (98-107) mmol/L Carbon Dioxide 28.3 (21.0-32.0) mmol/L Anion Gap 13.1 BUN 26.0 H (7.0-18.0) mg/dL Creatinine 1.39 H (0.55-1.02) mg/dL Est GFR ( Amer) 43 L (>=60 mL/min/1.73m^2) Est GFR (Non-Af Amer) 36 L (>=60 mL/min/1.73m^2) BUN/Creatinine Ratio 18.7 Glucose 115 H (74-106) mg/dL Lactate 1.6 (0.4-2.0) mmol/L Calcium 9.9 (8.5-10.1) mg/dL Total Bilirubin 0.7 (0.2-1.0) mg/dL AST 19 (15-37) U/L ALT 14 (14-59) U/L Alkaline Phosphatase 37 L (46-116) U/L Troponin I High Sens 12.3 (4.0-51.3) pg/mL Total Protein 7.5 (6.4-8.2) g/dL Albumin 3.5 (3.4-5.0) g/dL Globulin 4.0 g/dL Albumin/Globulin Ratio 0.9 Lipase 18.0 (16.0-77.0) U/L Urine Color Lt. yellow (YELLOW) Urine Clarity Clear (CLEAR) Urine pH 5.5 (5.0-9.0) Ur Specific Alloy 1.015 (1.005-1.025) Urine Protein Negative (NEG/TRACE) mg/dL Urine Glucose (UA) Negative (NEGATIVE) mg/dL Urine Ketones Negative (NEGATIVE) mg/dL Urine Occult Blood Negative (NEGATIVE) Urine Nitrite Positive A (NEGATIVE) Urine Bilirubin Negative (NEGATIVE) Urine Urobilinogen 0.2 (0.2-1.0) EU/dL Ur Leukocyte Esterase Negative (NEGATIVE) Urine RBC 0-2 (0-2) #/HPF Urine WBC 5-10 A (NONE SEEN) #/HPF Ur Squamous Epith Cells Moderate A (NONE/RARE) #/LPF Urine Crystals None seen (None Seen) #/HPF Urine Bacteria Large A (NONE SEEN) #/HPF Urine Casts None seen (NONE SEEN) #/LPF Urine Mucus None seen (NONE SEEN) Ur Culture Indicated? Yes-[facility] [place] Imaging Data CT scan - abdomen: Attestation: I have reviewed the pertinent imaging results. Radiologist's impression: CT of the abdomen and pelvis with IV contrast: Moderate pelvic enteritis. No bowel obstruction. Inflamed small bowel in the pelvis with adjacent fluid ECG Data Attestation: I personally reviewed and interpreted this ECG as follows: (Normal sinus rhythm at a rate of 55, right bundle branch block with no acute ST elevation or ectopy. EKG reviewed by attending physician) Discharge Plan Discharge Chief Complaint: Abdominal Pain Time of Disposition Decision: 16:32
[2024-04-24 13:39] LABS: Basophils Absolute Auto 0.1 10^3/uL (0.0-0.1); Basophils Percent Auto 0.3 % (0.2-2.0); Eosinophils Percent Auto 0.3 % (0.9-7.0); Hemoglobin 12.1 g/dL (12.0-16.0); Immature Granulocytes Abs Auto 0.07 10^3/uL (0.00-0.03); Immature Granulocytes Pct Auto 0.5 % (0.0-0.5); Lymphocytes Absolute Auto 1.6 10^3/uL (1.2-3.8); Lymphocytes Percent Auto 10.6 % (20.5-60.0); Mean Corpuscular HGB Conc 31.8 g/dL (29.9-35.2); Mean Corpuscular Hemoglobin 29.3 pg (26.7-34.0); Monocytes Percent Auto 6.6 % (1.7-12.0); Neutrophils Absolute Auto 12.4 10^3/uL (1.4-6.5); Neutrophils Percent Auto 81.7 % (43.0-75.0); Platelet Count 430 10^3/uL (150-450); Red Blood Count 4.13 10^6/uL (4.20-5.40); Red Cell Distribution Width 14.3 % (11.0-15.0); White Blood Count 15.2 10^3/uL (4.0-11.0)
[2024-04-24] MEDS: ONDANSETRON PF 4 MG/2 ML VIAL IV (13:47)
[2024-04-24] MEDS: PANTOPRAZOLE SODIUM 40 MG VIAL IV ×2 (13:47→19:55)
[2024-04-24 13:59] LABS: Alanine Aminotransferase 14 U/L (14-59); Albumin Globulin Ratio 0.9; Albumin Level 3.5 g/dL (3.4-5.0); Alkaline Phosphatase 37 U/L (46-116); Anion Gap 13.1; Aspartate Amino Transferase 19 U/L (15-37); BUN Creatinine Ratio 18.7; Bilirubin Total 0.7 mg/dL (0.2-1.0); Calcium 9.9 mg/dL (8.5-10.1); Carbon Dioxide 28.3 mmol/L (21.0-32.0); Chloride 101 mmol/L (98-107); Estimated GFR (African America 43 (>=60 mL/min/1.73m^2); Estimated GFR (Non-African Ame 36 (>=60 mL/min/1.73m^2); Glucose 115 mg/dL (74-106); Lactate/Lactic Acid 1.6 mmol/L (0.4-2.0); Potassium 4.4 mmol/L (3.5-5.1); Sodium 138 mmol/L (136-145); Total Protein 7.5 g/dL (6.4-8.2); Troponin I High Sensitivity 12.3 pg/mL (4.0-51.3)
[2024-04-24] MEDS: ENALAPRILAT DIHYDRATE 1.25 MG/ML VIAL IV (14:07)
[2024-04-24 15:29] LABS: Bilirubin Urine NEGATIVE (NEGATIVE); Blood Urine NEGATIVE (NEGATIVE); Clarity Urine CLEAR (CLEAR); Color Urine LT. YELLOW (YELLOW); Glucose Urine UA NEGATIVE (NEGATIVE); Ketones Urine NEGATIVE (NEGATIVE); Leukocyte Esterase Urine NEGATIVE (NEGATIVE); Nitrite Urine POSITIVE (NEGATIVE); Protein Urine NEGATIVE (NEG/TRACE); Specific Gravity Urine 1.015 (1.005-1.025); Urobilinogen Urine 0.2 EU/dL (0.2-1.0); pH Urine 5.5 (5.0-9.0)
[2024-04-24] MEDS: lidocaine HCL 15 ML, MAG HYDROX/ALUMINUM HYD/SIMETH 30 ML, HYOSCYAMINE SULFATE 0.25 MG PO (15:30)
[2024-04-24] MEDS: HYDRALAZINE HCL 20 MG/ML VIAL 10 MG IVP (15:30)
[2024-04-24 15:44] LABS: Bacteria Urine LARGE #/HPF (NONE SEEN); Mucus Urine NONE SEEN (NONE SEEN); RBC Urine 0-2 #/HPF (0-2); Squamous Epithelial Cell Urine MODERATE #/LPF (NONE/RARE)
[2024-04-24 15:46] LABS: Cast Seen? NONE SEEN #/LPF (NONE SEEN); Crystals Seen? None Seen #/HPF (None Seen); Urine Culture Indicated YES-FRMC
[2024-04-24] MEDS: FENTANYL CITRATE/PF 100 MCG/2 ML VIAL 50 MCG IV (16:14)
[2024-04-24] MEDS: CIPROFLOXACIN IN 5 % DEXTROSE 400 MG/200 ML PREMIX 200 MG IV (16:51)
--- OUTSIDE RECORDS SUMMARY | 2024-04-24 18:16 | XMS_ITS | CCD ---
Author Organization [facility] Inform ion Partnership [facility] Care Team Providers Care Slab Inspector Name Role Phone Jian Giana Unavailable Hunter [...] MONTGOMERY, DR REY Bustamante Admitting Unavailabl e LISNADRO, DR GYPSY Olvera Primary Care Unavailable ÁNGELADARRION [...] Unavailable MILTON ., MR GIBBONS Consulting Unavailable FAWWAD, MCCORD [...] Primary Care Unavailable Jose G Ellington Unavailable Malahti Velázquez Unavailable MD Jacinto Max Attending Provider MD Jacinto Max Referring Provider MD Gypsy Mcmahon Primary Care Provider Jacinto Max Unavailable MD Jacinto Max Attending Provider MD Jacinto Max Referring Provider MD Gypsy Mcmahon Primary Care Provider [phone] DO Marvin Garcia Emergency Provider MD Gypsy Mcmahon Primary Care Provider [phone] DO Monie Wallace Attending Provider [phone] MALATHI VIEIRA Attending Unavailable DEB, MALATHI Olvera Attending Unavailable DEB, MALATHI Olvera Referring Unavailable DEB, MALATHI Olvera Admitting Unavailable DEB, MALATHI Olvera Attending Unavailable DEB, MALATHI Olvera Attending Unavailable Gypsy Mcmahon MD Primary Care Provider [phone] ROYAL, MOHAMED F Attending Unavailable LISANDRO GYPSY E Referring Unavailable MCMAHON, GYPSY E Primary Care Unavailable ROYAL, MOHAMED F Attending Unavailable NEFTALI MCMAHONIA E Referring Unavailable MCMAHON, GYPSY E Primary Care Unavailable MCMAHON, GYPSY E Referring Unavailable MCMAHON, GYPSY E Primary Care Unavailable ROYAL, MOHAMED F Admitting Unavailable ROYAL, MOHAMED F Attending Unavailable LISANDRO GYPSY E Primary Care Unavailable LISANDRO GYPSY E Referring Unavailable MCMAHON, GYPSY E Primary Care Unavailable ROYAL, MOHAMED F Admitting Unavailable ROYAL, MOHAMED F Attending Unavailable LISANDRO GYPSY E Primary Care Unavailable ROYAL, MOHAMED F Referring Unavailable MCMAHON, GYPSY E Primary Care Unavailable ROYAL, MOHAMED F Admitting Unavailable ROYAL, MOHAMED F Attending Unavailable LISANDRO GYPSY E Primary Care Unavailable MARY JANE PATTERSON JR Consulting Unavailable HILDAADONIS U Consulting Unavailable MCMAHON, GYPSY E Primary Care Unavailable ROYAL, MOHAMED F Attending Unavailable ROYAL, MOHAMED F Referring Unavailable LISANDRO, GYPSY E Primary Care Unavailable EMMA, HILDA ANWAR H Attending Unavailable EMMA, HILDA ANWAR H Referring Unavailable LISANDRO, GYPSY E Primary Care Unavailable [...] Unavailable MCMAHON, GYPSY E Primary Care Unavailable CHAPINCITO SUE Attending Unavailable MCMAHON, GYPSY E Primary Care Unavailable ROYAL, MOHAMED F Referring Unavailable MCMAHON, GYPSY E Primary Care Unavailable ROYAL, MOHAMED F Attending Unavailable ROYAL, MOHAMED F Referring Unavailable MCMAHON, GYPSY E Primary Care Unavailable Gypsy Mcmahon MD Primary Care Provider KYREE FLETCHER Attending Unavailable BORISTAMIESHA GARNER Attending Unavailable INGRAM, SUNNY Gonsalves Attending Unavailable INGRAM, SUNNY T Referring Unavailable INGRAM, SUNNY Gonsalves Attending Unavailable INGRAM, SUNNY T Referring Unavailable Diab, Clementina A Admitting Unavailable Diab, Clementina A Attending Unavailable LyMonie Attending Unavailable LyMonie Admitting Unavailable Mcmahon, Gypsy E Primary Care Unavailable Marvin Garcia Attending Unavailable Tupa, Marvin Yancey Admitting Unavailable Mcmahon, Gypsy E Primary Care Unavailable Allergies Allergy Classification Reported Allergen(s) Allergy Type Date of Onset Reaction(s) Facility (20 sources) Promethazine; Translations: [promethazine] Drug Allergy 02-04-20 13 anaphylaxis, Anaphylaxis (disorder), Unknown, Other, Anxiety [facility] (20 sources) histamines Drug allergy Unknown [facility] Other (20 sources) Histamine H2 Inhibitors; Translations: [Histamine H2 Inhibitors] Allergy to substance 07-16-19 13 Other (See Comments) [facility] (20 sources) levoFLOXacin; Translations: [levofloxacin] Drug Allergy 07-01-19 23 Tremor (finding), Other (See Comments) [facility] (1 source) diphenhydrAMINE Drug Allergy 04-20-19 [facility] (1 source) ezetimibe Drug Allergy 04-20-19 [facility] (1 source) Gemfibrozil Drug Allergy 04-20-19 [facility] (2 sources) Levamisole; Translations: [Phenergan] Drug Allergy 07-16-19 13 [facility] (6 sources) NSAIDs; Translations: [NSAIDS (NON-STEROIDAL ANTI-INFLAMMATORY DRUG)] Drug allergy (disorder) 04-20-19 [facility] (1 source) Nasal Decongestant Drug allergy (disorder) 04-20-19 [facility] (1 source) Darvocet-N 100 Drug allergy (disorder) 04-20-19 [facility] (11 sources) diphenhydrAMINE; Translations: [diphenhydramine] Drug Allergy jumpy,, Unknown [facility] (14 sources) Penicillin; Translations: [penicillin] Drug Allergy Eruption of skin (disorder) [facility] (20 sources) Penicillins; Translations: [PENICILLINS] Propensity to adverse reactions 02-25-19 24 Rash [facility] (5 sources) Antihistamines Allergy to substance 02-26-19 Unknown Reaction [facility] (18 sources) diphenhydrAMINE Drug Allergy 07-19-19 23 Unknown, Other (See Comments) [facility] (14 sources) ezetimibe; Translations: [EZETIMIBE] Drug Allergy 07-19-19 23 Unknown [facility] (14 sources) Gemfibrozil; Translations: [GEMFIBROZIL] Drug Allergy 07-19-19 23 Unknown [facility] (7 sources) Histamine; Translations: [HISTAMINE] Drug Allergy 02-04-20 13 [facility] (6 sources) Histamine H>2< antagonist Drug Intolerance 11-22-19 22 [facility] (6 sources) Non-steroidal anti-inflammatory agent Drug Allergy 07-19-19 23 Unknown [facility] (9 sources) Propoxyphene Drug Allergy 07-19-19 23 Unknown [facility] (5 sources) diphenhydrAMINE; Translations: [DIPHENHYDRAMINE HCL] Drug Allergy 10-14-19 [facility] (17 sources) ANTIHISTAMINE 12 HOUR; Translations: [ANTIHISTAMINE 12 HOUR] Propensity to adverse reactions to drug (disorder) 05-21-19 Other (See Comments) [facility] (17 sources) PROPOXYPHENE N-ACETAMINOPHEN; Translations: [PROPOXYPHENE N-ACETAMINOPHEN] Propensity to adverse reactions to drug (disorder) 10-14-19 Other (See Comments) [facility] (12 sources) ezetimibe Drug Allergy 10-14-19 Other (See Comments) [facility] (12 sources) Gemfibrozil Drug Allergy 10-14-19 [facility]See Comments[facility] Non-steroidal anti-inflammatory agent Propensity to adverse reactions to drug 10-14-19 [facility] (See Comments[facility] Medic[facility] Current Medications Medication Drug Class(es) [...] 2300 Start: 01-07-2022 take 2 tablets by [facility] every six hours as needed for pain [...] Active ascorbic acid 250 mg oral tablet (16 sources) Vitamin C Start: 02-21-2024 take 1 tablet by mouth twice daily Ascorbic Acid (Vitamin C) 250 mg tablet Active 250 MG PO Twice daily February 21, 2024 1:00am aspirin 81 mg delayed release oral tablet [...] 30 to 60 minutes as needed May 21, 2023 12:00am do not exceed [...] 3 MG PO Daily September 22, 2023 8:51am Start: 05-21-2023 End: 07-07-2023 take 2 capsules by mouth once daily Budesonide 3 mg capsule,delayed,extend.release Discontinued 6 MG PO Daily May 21, 2023 10:12am July 07, 2023 10:28am Start: 05-21-2023 take 6 mg by mouth o nce daily Budesonide Active 6 MG PO Daily May 202023 10:12am Start: 12-06-2017 End: 05-21-2023 take 3 capsules by mouth once daily Budesonide 3 mg capsule,delayed,extend.release Discontinued 9 MG PO Daily December 06, 2017 12:00am May 21, 2023 10:14am Start: 12-06-2017 End: 05-21-2023 take 9 mg [...] mg/mL premix) cephalexin 500 mg oral capsule (11 sources) Cephalosporin Antibacterial Start: 04-13-2024 take 1 capsule by mouth three times daily Cephalexin 500 mg capsule Active 500 MG PO Three times daily April 13, 2024 1:00am Start: 01-07-2024 End: 01-10-2024 CEPHalexin (KEFLEX) 500 mg c apsule Take 1 capsule (500 mg total) by mouth in the morning and 1 capsule (500 mg total) at noon and 1 capsule (500 mg total) in the evening and 1 capsule (500 mg total) before bedtime. Do all this for 10 doses. 10 capsule 01/07/2024 01/10/2024 Active Start: 08-18-2023 End: 08-23-2023 take 1 capsule by mouth three times daily Cephalexin 500 mg capsule Discontinued 500 MG PO Three times daily August 18, 2023 12:00am August 23, 2023 1:19pm Start: 05-19-2023 End: 05-24-2023 take 1 capsule by mouth twice daily Cephalexin 500 mg capsule Discontinued 500 MG PO Twice daily May 19, 2023 12:00am May 24, 2023 1:33pm cholecalciferol 0.05 mg oral tablet (14 sources) Vitamin D Start: 12-06-2017 take 1 [...] Start: 04-01-2023 take 1 tablet by mouth once daily Clopidogrel 75 mg tablet Active 75 MG PO Daily April 15, [...] VAGINALLY TWICE WEEKLY DIRECTED Start: 04-26-2023 Estradiol 0.01 % (0.1 mg/gram) [...] Mar, Active gabapentin 100 mg oral capsule (6 sources) Anti-epileptic Agent Start: 03-23-2024 take 1 capsule by mouth twice daily Gabapentin 100 mg capsule Active 100 MG PO Twice daily 60 March 23, 2024 4:40pm Start: 02-21-2024 End: 03-23-2024 take 1 capsule by mouth three times daily Gabapentin 100 mg capsule Discontinued 100 MG PO Three times daily February 21, 2024 1:00am March 23, 2024 4:40pm Start: 01-02-2024 take 100 mg by mouth [...] Pre-insulin glucose level 150-250 mg/dL, Starting on Tu01/04/24 at 0909, For 1 dose, VESICANT (RED) [...] is (Daily Probiotic) 2.5 billion cell capsule (5 sources) Start: 04-15-2023 Start: 04-15-2023 labetalol hydrochloride 5 mg/ml injectable solution (1 source) beta-Adrenergic Daryl Start: 01-02-2024 take 20 mg intravenously every six hours as needed 20 mg, intravenous, Every 6 hours PRN, high blood pressure, Starting on 01/02/24 at 0136, For systolic blood pressure greater than 160 mmHg, hold for HR lactobacillus acidophilus [id number] unt oral tablet (2 sources) take 1 tablet by mouth every twelve hours Lactobacillus - 1 tablet twice a day Active lactobacillus acidophilus 0.05 mg / lactobacillus bulgaricus 0.05 mg oral tablet (4 sources) take 1 tablet by mouth every twelve hours Lactobacillus - 1 tablet twice a day Active lactobacillus acidophilus [id number] unt / pectin 100 mg oral tablet [...] PO Daily at bedtime February 21, 2024 1:00am take 1 tablet by mouth once macy y melatonin 10 mg tablet Take 1 tablet by mouth nightly. Active menthol 0.04 mg/mg topical gel (6 sources) Menthol, Topical Analgesic, (Biofreeze) 4 % gel Biofreeze Active methocarbamol 500 mg oral tablet (1 source) Muscle Relaxant Start: 01-06-20 End: 01-09-20 take 500 mg by mouth three times daily 500 mg, oral, 3 times daily, First dose on [facility] 01/06/24 at 1730, For 3 days metroNIDAZOLE [...] the morning. Active Multivitamin (Daily Multi-Vitamin) tablet (8 sources) Start: 03-23-2024 take 1 tablet by mouth once daily Multivitamin (Daily Multi-Vitamin) tablet Active 1 TAB PO Daily March 23, 2024 1:00am Start: 03-23-2024 take 1 tablet by ad th once daily Multivitamin (Daily Multi-Vitamin) tablet Active 1 TAB PO Daily March 23, 2024 12:00am Start: 04-15-2023 End: 02-21-2024 take 1 tablet by mouth once daily Multivitamin (Daily Multi-Vitamin) tablet Discontinued 1 TAB PO Daily April 15, 2023 1:00am February 21, 2024 2:32pm Start: 04-15-2023 End: 02-21-2024 take 1 tablet by mouth once daily Multivitamin (Daily Multi-Vitamin) tablet Discontinued 1 TAB PO Daily April 15, 2023 12:00am February 21, 2024 1:32pm Start: 04-15-2023 take 1 tablet by ad th once daily Multivitamin (Daily Multi-Vitamin) tablet Active [...] Ordered Start: 05-14-2022 take 1 capsule by [facility] every twelve hours Macrobid 100 MG [...] (DR/EC) Active 20 MG PO Daily August 09, 2023 12:00am Start: 11-04-2021 End: 05-21-2023 take 1 tablet by mouth once daily Pantoprazole 40 mg tablet,delayed release (DR/EC) Discontinued 1 TAB PO Daily April 15, 2023 1:00am May 21, 2023 10:16am FreeTextSig: TAKE 1 TABLET BY MOUTH ONCE DAILY; Note: Source Status: Taking; Refills: 3; Qty: 90 Tablet; Provider: Manny Harrison ( ) Start: 11-04-2021 pantoprazole ( PROTONIX) 40 mg EC tablet Indications: gastroesophageal reflux disease Take 20 mg by mouth in the morning. Indications: gastroesophageal reflux disease. 11/04/2021 Active polyethylene glycol 3350 53023 mg powder for oral solution (1 source) Osmotic Laxative Start: 01-06-2024 17 g, oral, D aily, First dose (after last modification) on [facility] 01/06/24 at 1745, Hold for loose stool Look-alike/sound-alike medication - verify indication for use. Dissolve 1 packet (17 gm) in 8 ounces of water, juice, soda, coffee or tea. Potassium Chloride (1 source) Start: 01-01-2024 potassium chlo ride (K-TAB,KLOR-CON) CR tablet 20-50 mEq potassium chloride IVPB 10 mEq/50 mL in water (0.2 mEq/mL premix) (1 source) Start: 01-01-2024 potassium chlo ride IVPB 10 mEq/50 mL in water (0.2 mEq/mL premix) prostat (3 sources) Start: 02-21-2024 prostat Active PO Twice daily February 21, 2024 1:00am Start: 02-21-2024 prostat Active PO Twice daily February 21, 2024 12:00am simvastatin 40 mg oral tablet (20 sources) HMG-CoA Reductase Inhibitor Start: 08-24-2023 take 1 tablet by mouth once daily Simvastatin 40 mg tablet Active 40 MG PO Daily August 24, 2023 12:00am Start: 08-23-2023 End: 08-24-2023 take 2 tablets by mouth once daily Simvastatin 40 mg tablet Discontinued 80 MG PO Daily August 23, 2023 1:18pm August 24, 2023 1:49pm Start: 05-10-2023 End: 08-23-2023 take 1 tablet by mouth once daily Simvastatin 40 mg tablet Discontinued 0 .ROUTE .COMPLEX May 10, 2023 4:20pm August 23, 2023 1:19pm TAKE 1 TABLET BY MOUTH DAILY Start: 12-06-2017 End: 05-10-2023 take 1 tablet by mouth once daily in the evening Simvastatin 40 mg Tablet Discontinued 40 MG PO Every evening December 06, 2017 12:00am May 10, 2023 4:20pm sodium phosphate 20 mmol in sodium chloride 0.9 % 250 mL IVPB (1 source) Start: 01-01-2024 sodium phosphate 20 mmol in sodium chloride 0.9 % 250 mL IVPB spironolactone 50 mg oral tablet (20 sources) Aldosterone Antagonist Start: 10-13-2023 take 1 tablet by mouth once daily Spironolactone 50 mg tablet Active 0 .ROUTE .COMPLEX October 13, 2023 1:25pm TAKE 1 TABLET BY MOUTH ONCE DAILY Start: 08-18-2023 End: 10-13-2023 take 1 tablet by mouth once daily Spironolactone 50 mg tablet Discontinued 50 MG PO Daily August 18, 2023 10:01am October 13, 2023 1:25pm FreeTextSi tablet Orally Once a day; Note: Source Status: Taking; Provider: Lisandro Olvera Start: 05-14-2022 End: 08-18-2023 take 1 tablet by mouth once daily Spironolactone 25 mg tablet Discontinued 25 MG PO Daily April 15, 2023 1:00am August 18, 2023 10:02am FreeTextSi tablet Orally Once a day; Note: Source Status: Taking; Provider: Lisandro Olvera take 2 tablets by [facility] in the morning spironolactone (ALDACTONE) 25 mg [...] UNIT (6 sources) take 1 tablet by [facility] once daily Vitamin D 1000 [...] 1 tablet [facility] 50 mg tablet tablet Take 1 tablet (50 mg total) by mouth in the morning. take 1 tablet by mouth in the [facility] zinc 50 mg tablet tablet Take 1 tablet (50 mg total) by mouth in the morning. Suspended take 1 tablet [facility] 50 MG tablet Take 50 mg by mouth in the morning. Active take 1 tablet by mouth in the mo rning zinc 50 mg tablet tablet Take 1 tablet (50 mg total) by mouth in the morning. Active Zinc Active zinc acetate 50 mg oral capsule (3 sources) Start: 03-23-2024 take 1 capsule by mouth once daily Zinc Acetate (Galzin) 50 mg (zinc) capsule Active 50 MG PO Daily March 23, 2024 1:00am Completed/Discontinued Medications Medication Drug Class(es) Dates Sig [...] Active alendronic acid 70 mg oral tablet (8 sources) Bisphosphonate Start: 12-06-2017 End: 04-15-2023 take 1 tablet by mouth every week Alendronate 70 mg tablet Discontinued 70 MG PO every week December 06, 2017 12:00am April 15, 2023 2:36pm alosetron 0.5 mg oral tablet (20 sources) Serotonin-3 Receptor Antagonist Start: 10-03-2021 End: 10-27-2023 take 0.5 tablet by mouth once daily as needed amylase [id number] unt / lipase 79248 unt / protease [id number] unt delayed release oral capsule (3 sources) Start: 06-02-2023 End: 07-07-2023 take 2 capsules by mouth once daily at mealtime, then take 8 capsules by mouth once daily Zszzrf-Eizklppc-Im ylase (Creon) 36,000-114,000- 180,000 unit capsule,delayed release(DR/EC) Discontinued 0 PO Daily 240 June 02, 2023 12:00am July 07, 2023 10:35am 2 capsules with meals and 1 capsule [...] hour 100 mL/hr, intravenous, Continuous, Starting on 01/02/24 at 2230, For 24 hours cefdinir 300 [...] as Lactated Ringers., Indication: UTI Cholestyramine Resin (4 sources) Bile Acid Sequestrant Start: 05-21-2023 End: 07-07-2023 take 1 dose by mouth twice daily Cholestyramine (With Sugar) (Questran) 4 gram powder Discontinued 4 GM PO Twice daily 348.6 May 21, 2023 12:00am July 07, 2023 10:29am administer w/meal; avoid other meds within 1hr before or 4-6hr after dose Start: 05-21-2023 End: 07-07-2023 take 1 dose [...] after dose collagenase 0.25 unt/mg topical ointment (5 sources) Collagen-specific Enzyme Start: 02-21-2024 End: 03-23-2024 Collagenase Clostridium Histo. (Santyl) 250 unit/gram ointment Discontinued 1 APPLIC TOPICAL Daily February 21, 2024 1:00am March 23, 2024 3:12pm Start: 10-06-2023 End: 11-16-2023 SantyL ointment APPLY DAILY TO WOUND BED FOR 30 DAYS 10/06/2023 11/16/2023 Discontinued (Therapy completed) cranberry preparation 250 mg oral capsule (13 sources) Non-Standardized Food Allergenic Extract, Non-Standardized Plant Allergenic Extract Start: 04-15-2023 End: 04-15-2023 Cranberry Extract 250 mg tablet Discontinued MG PO April 15, 2023 1:00am April 15, 2023 2:38pm Start: 04-15-2023 End: 04-15-2023 Cranberry Extract 250 mg tab let Discontinued MG PO April 15, 2023 12:00am April 15, 2023 1:38pm Start: 04-15-2023 End: 04-15-2023 Cranberry Extract Discontinu ed MG PO April 15, 2023 1:00am April 15, 2023 2:38pm Cranberry Extrac t Active docusate sodium 100 mg oral capsule (4 sources) Start: 02-21-2024 End: 03-23-2024 take 1 capsule by mouth twice daily Docusate Sodium (Colace) 100 mg capsule Discontinued 100 MG PO Twice daily February 21, 2024 1:00am March 23, 2024 3:12pm Start: 01-05-2024 take 100 mg by mouth [...] procedure, # 2 cap(s), Refills(s) 0, Pharmacy: [facility]/pharmacy #[id number], 178, cm, 05/19/22 [...] for use. fidaxomicin 200 mg oral tablet (10 sources) Macrolide Antibacterial Start: 04-22-2023 End: 05-21-2023 [...] 22, 2023 3:49pm fosfomycin 3000 mg powder fo r oral solution (7 sources) Start: 08-23-2023 End: 11-01-2023 Fosfomycin Tromethamine 3 gr am packet Discontinued 1 PACKET PO Once 1 August 23, 2023 12:00am November 01, 2023 3:47pm Start: 05-07-2023 End: 05-21-2023 Fosfomycin Tromethamine 3 gr am packet Discontinued 1 PACKET PO Once 1 May 07, 2023 12:00am May 21, 2023 9:59am Start: 05-07-2023 End: 05-21-2023 Fosfomycin Tromethamine Disc ontinued 1 PACKET PO Once 1 May 07, 2023 12:00am May 21, 2023 9:59am Fosfomycin Tromethamine 3 gr am packet (6 sources) Start: 11-22-2023 End: 03-23-2024 Fosfomycin Tromethamine 3 gr am packet Discontinued 1 PACKET PO Once 1 November 22, 2023 2:10pm March 23, 2024 3:13pm Start: 11-22-2023 End: 03-23-2024 Fosfomycin Tromethamine 3 gr am packet Discontinued 1 PACKET PO Once 1 November 22, 2023 1:10pm March 23, 2024 2:13pm Start: 11-01-2023 End: 11-22-2023 Fosfomycin Tromethamine 3 gr am packet Discontinued 1 PACKET PO Once 1 November 01, 2023 3:46pm November 22, 2023 2:10pm Start: 11-01-2023 End: 11-22-2023 Fosfomycin Tromethamine 3 [...] / losartan potassium 50 mg oral tablet (8 sources) Thiazide Diuretic, Angiotensin 2 Receptor Daryl Start: 12-06-2017 End: 04-15-2023 take 1 tablet by mouth once daily Losartan-Hydrochlorothi azide 50-12.5 mg tablet Discontinued 1 TAB PO Daily December 06, 2017 12:00am April 15, 2023 2:38pm 0.5 ml HYDROmorphone hydrochloride 1 mg/ml prefilled [...] Iron Not-Taking levoFLOXacin 250 mg oral tablet (3 sources) Quinolone Antimicrobial Start: 08-11-2023 End: 08-18-2023 take 1 tablet by mouth once daily Levofloxacin 250 mg tablet Discontinued 250 MG PO Daily 5 August 11, 2023 12:00am August 18, 2023 9:33am loperamide hydrochloride 2 mg oral capsule (20 sources) Opioid Agonist Start: 05-21-2023 End: 08-18-2023 take 1 capsule by mouth four times daily as needed Loperamide (Imodium A-D) 2 mg capsule Discontinued 2 MG PO Four times daily as needed May 21, 2023 12:00am August 18, 2023 9:33am Start: 09-22-2022 take 1 mg by mouth once Imodiu m A-D mg, Oral, Refills(s) 0 Start Date: 09/22/22 Status: Ordered Start: 09-22-2022 End: 10-27-2023 loperamide HCl (IMODIUM A-D ORAL) Take by mouth. 09/22/2022 10/27/2023 Discontinued (Therapy completed) Start: 08-15-2023 loperamide HCl (IMODIUM A-D ORAL) Take by mouth. 09/22/2022 Active Start: 12-06-2017 End: 04-15-2023 take 1 capsule by mouth once daily Loperamide 2 mg capsule Discontinued 2 MG PO Daily December 06, [...] 0 .ROUTE .COMPLEX 90 September 02, 2023 11:40am November 22, 2023 1:57pm TAKE 1 TABLET BY MOUTH DAILY Start: 08-17-2023 End: 09-02-2023 take 1 tablet by mouth once daily Metoprolol Succinate 50 mg tablet extended release 24 hr Discontinued 50 MG PO Daily August 17, 2023 12:00am September 02, 2023 11:40am Start: 04-15-2023 End: 05-21-2023 Metoprolol Succinate (Toprol [...] WOUND DAILY 08/30/2023 01/01/2024 Discontinued (Therapy completed) nebivolol 5 mg oral tablet (17 sources) Start: 11-09-2023 take 2 tablets by mouth once daily Nebivolol 5 mg tablet Active 10 MG PO Daily February 21, 2024 2:32pm Start: 11-09-2023 End: 02-21-2024 take 1 tablet by mouth once daily Nebivolol 5 mg tablet Discontinued 5 MG PO Daily November 22, 2023 12:00am February 21, 2024 2:35pm niCARdipine (CARDENE) infusion 25 mg/50 mL in [...] the site of infusion every 12 hours. Look-alike/sound-alike medication. Verify indication for use. Do not combine or run in the same line as other medications. ondansetron 4 mg oral tablet (10 sources) Serotonin-3 Receptor Antagonist Start: 05-01-2022 take 1 tablet by mouth three times daily as needed Ondansetron HCl 4 MG 1 tablet Orally tid prn for 10 days Apr, Not-Taking Psyllium (6 sources) Metamucil Not-Ta oral rivaroxaban 2.5 mg oral tablet (9 sources) Factor Xa Inhibitor Start: 01-02-2024 End: 04-06-2024 take 1 tablet by mouth twice daily Rivaroxaban (Xarelto) 2.5 mg tablet Discontinued 2.5 MG PO Twice daily February 21, 2024 1:00am April 06, 2024 9:40am 1000 ml sodium chloride 9 mg/ml injection (1 source) Start: 01-01-2024 End: 01-03-2024 3 mL/hr, intra-arterial, Continuous, Starting on 01/01/24 at 1945, For 5 days sodium zirconium cyclosilicate 18446 mg powder for oral suspension (1 source) [...] Not-Taking traMADol hydrochloride 50 mg oral tablet (18 sources) Opioid Agonist Start: 01-21-2024 End: 03-23-2024 take 1 tablet by mouth once daily at bedtime as needed for pain Tramadol 50 mg tablet Discontinued 50 MG PO Daily at bedtime as needed for pain March 13, 2024 11:25am March 23, 2024 3:14pm traMADol HCl Not -Taking vancomycin 125 mg oral capsule (20 sources) Glycopeptide Antibacterial Start: 11-22-2023 End: 03-23-2024 Vancomycin 125 mg capsule Discontinued 125 MG PO As Directed November 22, 2023 2:11pm March 23, 2024 3:14pm take 125 mg po qday for 3 days then off for 3 days; repeat for 4 weeks. Start: 11-22-2023 End: 11-22-2023 take 1 capsule by mouth four times daily Vancomycin 125 mg capsule Discontinued 125 MG PO As Directed November 22, 2023 12:00am November 22, 2023 2:12pm take 125 mg 4 times per day for 10 days; 2 times per day for 7 days; once daily for 7 days; once every 2-3 days for 2-8 weeks Start: 01-26-2023 End: 04-22-2023 take 1 capsule by mouth four times daily Vancomycin 125 mg capsule Discontinued 125 MG PO Four times daily April 12, 2023 1:00am April 22, 2023 3:48pm Start: 01-26-2023 take 1 capsule by mo uth every six hours Vancomycin HCl 125 MG [...] disease (20 sources) Atherosclerotic heart disease of cahto coronary artery without angina pectoris; Translations: [Coronary arteriosclerosis] Onset: 03-03-2022 Chronic Coronary atherosclerosis and other heart disease (1 source) Presence of aortocoronary bypass graft; Translations: [PRESENCE AORTOCORONARY BYPASS GRAFT] Onset: 03-24-2022 Episodic Deficiency and other anemia (12 sources) Anemia; Translations: [Anemia, unspecified] Onset: 11-09-2023 11-18-2023 Episodic Disorders of lipid metabolism (20 sources) Hyperlipidemia; Translations: [Pure hypercholesterolemia, unspecified] Onset: [...] 11-10-2021 Episodic Gangrene (20 sources) Atherosclerosis of cahto arteries of extremities with gangrene, right leg; [...] source) Encounter for immunization Episodic Intestinal infection (20 sources) Enterocolitis due to Clostridium difficile, not specified as recurrent; Translations: [Clostridium difficile colitis] Onset: 11-09-2023 Episodic Joint disorders and dislocations; trauma-related (15 [...] 02-04-2022 Chronic Other aftercare (1 source) Other skilled nursing (current) drug therapy; 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] Onset: 03-24-2022 Episodic Other [...] incontinence of feces] Episodic Other gastrointestinal disorders (2 sources) Other specified symptoms and signs involving the digestive system and abdomen; Translations: [Alternating constipation and diarrhea] Episodic Other nervous system disorders (3 sources) Postoperative pain ; Translations: [Other acute postprocedural pain] 01-21-2024 Episodic Other non-epithelial cancer of skin (1 source) Personal history of other malignant neoplasm of skin; Translations: [PERSONAL HX OTH MALIG NEOPLASM SKIN] Onset: 03-24-2022 Episodic Other non-traumatic joint disorders (2 sources) Pain in left knee; Translations: [Pain in joint, lower leg] 02-28-2024 Episodic Other nutritional; endocrine; and metabolic disorders (12 sources) Hypercalcemia; Translations: [Hypercalcemia] Onset: 11-09-2023 11-18-2023 Chronic Other skin disorders (1 source) Disorder of [...] and visceral atherosclerosis (20 sources) 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..] Onset: 11-18-2023 11-18-2023 Other aftercare (1 source) 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; Translations: [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 ASPIRIN] Onset: 11-10-2021 Episodic [...] Onset: 11-11-2022 11-18-2023 Episodic Other gastrointestinal disorders (3 sources) Full incontinence of feces; Translations: [FULL INCONTINENCE OF FECES] Onset: 02-19-2022 Episodic Other gastrointestinal disorders (6 sources) Diarrhea, unspecified; Translations: [Diarrhea] Onset: 05-28-2023 Episodic Other gastrointestinal disorders (1 source) Fecal urgency; Translations: [Fecal urgency] Onset: 05-28-2023 Episodic Other nervous system disorders (15 sources) Finding related to ability to move; Translations: [Other abnormalities of gait and mobility] Onset: 11-02-2022 11-02-2022 Episodic Other nutritional; endocrine; and metabolic disorders (1 source) Abnormal weight loss; Translations: [Abnormal weight loss] Onset: 05-28-2023 Episodic Other skin disorders (9 sources) Ingrowing nail; Translations: [Ingrowing nail] Onset: 11-18-2023 11-18-2023 Episodic Unclassified (7 sources) Finding of sensation of bladder 05-19-2022 Unclassified (1 source) CONTACT W/AND (SUSP) EXPOS COVID-19; Translations: [CONTACT W/AND (SUSP) EXPOS COVID-19] Onset: 08-12-2021 Varicose veins of lower extremity (20 sources) 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; Translations: [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] Onset: 10-14-2023 10-14-2023 Episodic Results Test Name Value Interpretation Reference Range Facility Laboratory - Chemistry and C hemistry - challengeon 04-08-2024 Bilirubin Ql (U) Negative NEGATIVE [facility] Glucose (U) [Mass/Vol] Negative NEGATIVE [facility] Ketones Ql (U) Negative NEGATIVE [facility] pH (U) 5.5 [pH] 5.0-9.0 [facility] Specific gravity (U) [Rel density] 1.020 1.005-1.02 5 [facility] Urobilinogen Qn (U) 0.2 {Gen'U}/dL 0.2-1.0 [facility] Laboratory - Specimen inform ationon 04-08-2024 Appearance (U) CLEAR CLEAR [facility] Color (U) LT. YELLOW YELLOW [facility] Laboratory - Urinalysison Leukocyte esterase Test strip Ql (U) TRACE Abnormal NEGATIVE [facility] Mucus Ql (Urine sed) NONE SEEN NONE SEEN [facility] Nitrite Ql (U) Positive Abnormal NEGATIVE [facility] Protein Ql (U) TRACE mg/dL NEG/TRACE [facility] No Panel Informationon 04-08 Urine Bacteria SMALL #/HPF Abnormal NONE SEEN [facility] Urine Culture Reflexed YES-[facility] Urine Microscopic Review YES [facility] Urine Occult Blood MODERATE Abnormal NEGATIVE [facility] Urine Other Casts NONE SEEN #/LPF NONE SEEN [facility] Urine Other Crystals None Seen #/HPF None Seen [facility] Urine RBC 0-2 #/HPF 0-2 [facility] Urine Squamous Epithelial Cells FEW #/LPF Abnormal NONE/RARE [facility] Urine WBC 5-10 #/HPF Abnormal NONE SEEN [facility] Urine Cultureon 04-08-2024 Bacteria identified Cx Nom (U) ORGANISM: Klebsiella pneumoniae (O:KLEPNE) [place] Count >100,000 Aerobic JODY Charge (NMIC56) -- SUSCEPTIBILITY - ORGANISM: O:KLEPNE ANTIBIOTIC INTERPRETATION JODY Amikacin S <16 Amoxacillin/K Clavulanate S <8 Ampicillin/Sulbactam S <4 Aztreonam S <4 Cefazolin S <2 Cefepime S <2 Ceftazidime S <1 Ceftazidime/Avibactam S <4 Ceftolozane/Tazobactam S <2 Ceftriaxone S <1 Cefuroxime S <4 Ciprofloxacin S <0.25 Ertapenem S <0.5 Gentamicin S <2 Levofloxacin S <0.5 Meropenem S <1 Meropenem/Vaborbactam S <2 Nitrofurantoin S <32 Piperacillin/Tazobactam S <8 Tetracycline S <4 Tigecycline S <2 Tobramycin S <2 Trimethoprim/Sulfametho xazole S <0.5 S = SUSCEPTIBLE I = [...] RESISTANT TO ALL B-LACTAM DRUGS. PERFORMED BY: [place] [address] [place] [address] PATHOLOGIST HOSPICE BEREAVEMENT COORDINATOR DEUCE HECK M.D. Normal [facility] Comment on above: Performed By: #### C UU #### [address] Basophils/100 WBC Manual cnt (Bld)on 04-07-2024 Basophils/100 WBC (Bld) Basophils/100 leukocytes in Blood by Manual count Low 0.2-2.0 [facility] Eosinophils/100 WBC Manual c nt (Bld)on 04-07-2024 Eosinophils/100 WBC (Bld) Eosinophils/100 leukocytes in Blood by Manual count Low 0.9-7.0 [facility] Estimated glomerular filtrat ion rate (GFR) non- Americanon 04-07-2024 GFR/1.73 sq M.predicted among non-blacks MDRD (S/P/Bld) [Vol rate/Area] Estimated glomerular filtration rate (GFR) non- Low >=60 mL/min/1.7 3m 2 [facility] Globulin Calc (S) [Mass/Vol] on 04-07-2024 Globulin (S) [Mass/Vol] Serum globulin measurement by calculation (mass/volume) [facility] INR in Platelet poor plasma by Coagulation assayon 04-07-2024 INR Coag (PPP) [Relative time] INR in Platelet poor plasma by Coagulation assay [facility] Comment on above: DESIRED INR:2.0-3.0 CONDITIONS NOT LISTED BELOW2.5-3.5 FOR PROSTHETIC HEART VALVE REPLACEMENT2.5-3.5 RECURRENT THROMBOSIS Laboratory - Chemistry and C hemistry - challengeon 04-07-2024 Albumin [Mass/Vol] 3.5 g/dL 3.4-5.0 [facility] ALP [Catalytic activity/Vol] 36 U/L Low 46-116 [facility] ALT [Catalytic activity/Vol] 17 U/L 14-59 [facility] AST [Catalytic activity/Vol] 20 U/L 15-37 [facility] Bilirubin [Mass/Vol] 0.6 mg/dL 0.2-1.0 [facility] Calcium [Mass/Vol] 9.5 mg/dL 8.5-10.1 [facility] Chloride [Moles/Vol] 103 mmol/L 98-107 [facility] CO2 [Moles/Vol] 23.7 mmol/L 21.0-32.0 [facility] Creatinine [Mass/Vol] 1.43 mg/dL High 0.55-1.[address] [facility] GFR/1.73 sq M.predicted MDRD (S/P/Bld) [Vol rate/Area] 42 mL/min/{1.73_m2} Low >=60 mL/min/1.7 3m 2 [facility] Glucose [Mass/Vol] 101 mg/dL 74-106 [facility] Lactate [Moles/Vol] 1.2 mmol/L 0.4-2.0 [facility] Potassium [Moles/Vol] 4.3 mmol/L 3.5-5.[address] [facility] Protein [Mass/Vol] 7.3 g/dL 6.4-8.2 [facility] Sodium [Moles/Vol] 136 mmol/L 136-145 [facility] Urea nitrogen [Mass/Vol] 22.0 mg/dL High 7.0-18.0 [facility] Urea nitrogen/Creatinine [Mass ratio] 15.4 mg/mg [facility] Laboratory - Hematology and Cell countson 04-07-2024 Lymphocytes/100 WBC (Bld) 9.0 % Low 20.5-60.0 [facility] Monocytes/100 WBC (Bld) 11.0 % 1.7-12.0 [facility] Laboratory - Microbiology an d Antimicrobial susceptibilityon 04-07-2024 SARS-CoV-2 (COVID-19) RNA [place]+probe Ql (Unsp spec) Negative NEGATIVE [facility] Comment on above: This test has not be en FDA cleared or approved, but has beenauthorized by the FDA under an Emergency Use Authorization(EUA) for use by authorized laboratories certified underCLIA that meet the requirements to perform moderate or highcomplexity testing. This test has been authorized only forthe detection of proteins from SARS-CoV-2, not for any otherviruses or pathogens. The emergency use of this test isauthorized for the duration of the declaration thatcircumstances exist justifying the authorization ofemergency use of in vitro diagnostic tests for detectionand/or diagnosis of Covid-19 under section 564(b)(1) of theAct, 21 U.S.C. 360bbb-3(b)(1), unless the declaration isterminated or authorization is revoked sooner. No Panel Informationon 04-07 Absolute Basophils (Manual) 0.00 10 3/uL 0.00-0.10 [facility] Bedside Influenza Type A Antigen Negative [facility] Comment on above: Negative for Flu A p rotein antigen. Infection due to Flu Acannot be ruled out. Flu A antigen in the sample may bebelow the detection limit of the test. Bedside Influenza Type B Antigen Negative [facility] Comment on above: Negative for Flu B p rotein antigen. Infection due to Flu Bcannot be ruled out. Flu B antigen in the sample may bebelow the detection limit of the test. Eosinophils # (Manual) 0.00 10 3/uL 0.00-0.70 [facility] Lymphocytes # (Manual) 0.72 10 3/uL Low 1.20-3.80 [facility] Monocytes # (Manual) 0.89 10 3/uL High 0.30-0.80 [facility] Segmented Neutrophils # (Manual) 6.48 10 3/uL 1.4-6.5 [facility] Troponin I High Sensitivity 19.1 pg/mL 4.0-51.3 [facility] Comment on above: CUT-OFF POINTS HAVE BEEN ESTABLISHED BASED ON THE FOURTHUNIVERSAL DEFINITION OF MYOCARDIAL INFARCTION. THE UPPERREFERENCE LIMIT (URL) OF TROPONIN, DEFINED THE 99THPERCENTILE OF cTnI DISTRIBUTION IN A REFERENCE POPULATION,HAS BEEN CONFIRMED THE DECISION THRESHOLD FOR MIDIAGNOSIS.99TH PERCENTILE = 51.4 PG/MLNOTE: HIGH-SENSITIVITY TROPONIN ASSAY IS NOT INTENDED TO BEUSED IN ISOLATION BUT SHOULD BE INTERPRETED IN CONJUNCTIONWITH OTHER DIAGNOSTIC AND CLINICAL INFORMATION. Prothrombin time (PT)on 03-12 PT Coag (PPP) [Time] Prothrombin time (PT) 9.0- 11.6 [facility] Segmented neutrophils/100 WB C Manual cnt (Bld)on 04-07-2024 Segmented neutrophils/100 WBC (Bld) Manual blood segmented neutrophils/100 leukocytes High 43.0-75.0 [facility] Serum or plasma albumin/glob ulin mass ratioon 04-07-2024 Albumin/Globulin [Mass ratio] Serum or plasma albumin/globulin mass ratio [facility] Serum or plasma anion gap de terminationon 04-07-2024 Anion gap [Moles/Vol] Serum or plasma an ion gap determination [facility] Office Visiton 03-02-2024 Follow-up visit [id number] Delicia Hsu 1935 F Date Provider Department Center 03/02/2024 271-MIESHA BARRY [facility] Family History Problem Relation Age of Onset Aneurysm Mother Heart attack Father Family Status - Relation Status Age at Mother Father Level of Service:02136 [place] OFFICE/OUTPATIENT ESTABLISHED LOW MDM 20 MIN Normal [facility] No Panel Informationon 02-27 Sunny Ingram NP 02/28/2024 3:34 PM L Inj/Asp: L knee on 02/28/2024 3:32 PM Indications: pain Details: 21 G needle, anterolateral approach Medications: 40 mg methylPREDNISolone acetate 40 MG/ML Outcome: tolerated well, no immediate complications Site was cleaned with isopropyl alcohol Procedure, treatment alternatives, risks and benefits explained, specific risks discussed. Consent was given by the patient. 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 Comment on above: Performed By: #### C BC, BMP #### [facility] ([id number]) [address], [address] [place] [address] Calcium [Mass/Vol] 8.9 mg/dL Normal 8.5-10.5 [facility] Comment on above: Performed By: #### C TANYA, BMP #### [facility] ([id number]) [address], [address] [place] [address] Chloride [Moles/Vol] 99 mmol/L Normal 98-109 [facility] Comment on above: Performed By: #### C TANYA, BMP #### [facility] ([id number]) [address], [address] [place] [address] CO2 [Moles/Vol] 28 mmol/L Normal 22-32 [facility] Comment on above: Performed By: #### C TANYA, BMP #### [facility] ([id number]) [address] [place] [address] Creatinine [Mass/Vol] 0.86 mg/dL Normal 0.40-1.00 [facility] Comment on above: Result Comment: METH OD TRACEABLE TO IDMS STANDARD Performed By: #### C TANYA, BMP #### [facility] ([id number]) [address] [address] GFR/1.73 sq M.predicted among non-blacks MDRD (S/P/Bld) [Vol rate/Area] 65 mL/min/{1.73_m2} Normal >59 [facility] Comment on above: Result Comment: Reported eGFR is based on the CKD-EPI 2020 equation that does not use a race coefficient. Performed By: #### C TANYA, BMP #### [facility] ([id number]) [address], [address] [place] [address] Glucose [Mass/Vol] 93 mg/dL Normal 65-99 [facility] Comment on above: Performed By: #### C TANYA, BMP #### [facility] ([id number]) [address] [place] [address] Potassium [Moles/Vol] 3.9 mmol/L Normal 3.5-5.0 [facility] Comment on above: Performed By: #### C TANYA, BMP #### [facility] ([id number]) [address] [place] [address] Sodium [Moles/Vol] 135 mmol/L Normal 134-146 [facility] Comment on above: Performed By: #### C TANYA, BMP #### [facility] ([id number]) [address] [place] [address] Urea nitrogen [Mass/Vol] 24 mg/dL Normal 5-27 [facility] Comment on above: Performed By: #### C TANYA, BMP #### [facility] ([id number]) [address], [address] [place] [address] Basic Metabolic Panelon 11-2 Anion gap [Moles/Vol] 8 mmol/L 5 - 15 mmol/L [facility] Calcium [Mass/Vol] 8.9 mg/dL 8.5 - 10. 5 mg/dL [facility] Chloride [Moles/Vol] 99 mmol/L 98 - 10 9 mmol/L [facility] CO2 [Moles/Vol] 28 mmol/L 22 - 32 mmol/L [facility] Creatinine [Mass/Vol] 0.86 mg/dL 0.40 - 1.00 mg/dL [facility] Comment on above: METHOD TRACEABLE TO IDMS STANDARD eGFR (CKD-EPI)non-race dependent 65 - PINF [facility] Comment on above: Reported eGFR is based on the CKD-EPI 2020 equation that does not use a race coefficient. Glucose [Mass/Vol] 93 mg/dL 65 - 99 mg/dL [facility] Potassium [Moles/Vol] 3.9 mmol/L 3.5 - 5.0 mmol/L [facility] Sodium [Moles/Vol] 135 mmol/L 134 - 146 mmol/L [facility] Urea nitrogen [Mass/Vol] 24 mg/dL 5 - 27 mg/dL [facility] CBC AND AUTO DIFFon 01-07-20 ABSOLUTE BASOPHIL 0.1 X10E9/L Normal 0.0-0.2 [facility] Comment on above: Performed By: #### Jeny MARTÍNEZ, BMP #### [facility] ([id number]) [address], [address] [place] [address] ABSOLUTE NEUTROPHIL 7.3 X10E9/L High 1.5-6.6 [facility] Comment on above: Performed By: #### C TANYA, BMP #### [facility] ([id number]) [address], [address] [place] [address] Basophils/100 WBC (Bld) 0.6 % Normal [facility] Comment on above: Performed By: #### Jeny MARTÍNEZ, BMP #### [facility] ([id number]) [address], [address] [place] [address] Eosinophils (Bld) [#/Vol] 0.0 10*3/uL Normal 0.0-0.4 [facility] Comment on above: Performed By: #### Jeny MARTÍNEZ, BMP #### [facility] ([id number]) [address] [place] [address] Eosinophils/100 WBC (Bld) 0.5 % Normal [facility] Comment on above: Performed By: #### Jeny MARTÍNEZ, BMP #### [facility] ([id number]) [address], [address] [place] [address] Erythrocyte distribution width (RBC) [Ratio] 17.4 % High 11.5-15.0 [facility] Comment on above: Performed By: #### Jeny MARTÍNEZ, BMP #### [facility] ([id number]) [address], [address] [place] [address] Hematocrit (Bld) [Volume fraction] 23.7 % Low 35-47 [facility] Comment on above: Performed By: #### Jeny MARTÍNEZ, BMP #### [facility] ([id number]) [address], [address] [place] [address] Hemoglobin (Bld) [Mass/Vol] 8.3 g/dL Low 11.7-15.5 [facility] Comment on above: Performed By: #### C TANYA, BMP #### [facility] ([id number]) [address], [address] [place] [address] Lymphocytes (Bld) [#/Vol] 0.7 10*3/uL Low 1.0-3.5 [facility] Comment on above: Performed By: #### C TANYA, BMP #### [facility] ([id number]) [address], [address] [place] [address] Lymphocytes/100 WBC (Bld) 7.8 % Normal [facility] Comment on above: Performed By: #### C TANYA, BMP #### [facility] ([id number]) [address] [place] [address] MCH (RBC) [Entitic mass] 33.5 pg Normal 27-34 [facility] Comment on above: Performed By: #### C TANYA, BMP #### [facility] ([id number]) [address], [address] [place] [address] MCHC (RBC) [Mass/Vol] 34.9 g/dL Normal 32-36 [facility] Comment on above: Performed By: #### C TANYA, BMP #### [facility] ([id number]) [address], [address] [place] [address] MCV (RBC) [Entitic vol] 96 fL Normal 80-100 [facility] Comment on above: Performed By: #### C TANYA, BMP #### [facility] ([id number]) [address], [address] [place] [address] Monocytes (Bld) [#/Vol] 1.1 10*3/uL High 0-0.9 [facility] Comment on above: Performed By: #### C TANYA, BMP #### [facility] ([id number]) [address], [address] [place] [address] Monocytes/100 WBC (Bld) 11.7 % Normal [facility] Comment on above: Performed By: #### C TANYA, BMP #### [facility] ([id number]) [address], [address] [place] [address] Neutrophils/100 WBC (Bld) 79.4 % Normal [facility] Comment on above: Performed By: #### C TANYA, BMP #### [facility] ([id number]) [address], [address] [place] [address] Platelet mean volume (Bld) [Entitic vol] 7.4 fL Normal 7-12 [facility] Comment on above: Performed By: #### C TANYA, BMP #### [facility] ([id number]) [address], [address] [place] [address] Platelets (Bld) [#/Vol] 326 10*3/uL Normal 150-450 [facility] Comment on above: Performed By: #### C TANYA, BMP #### [facility] ([id number]) [address], [address] [place] [address] RBC COUNT 2.47 X10E12/L Low 3.80-5.20 [facility] Comment on above: Performed By: #### C TANYA, BMP #### [facility] ([id number]) [address], [address] [place] [address] WBC (Bld) [#/Vol] 9.2 10*3/uL Normal 4.0-11.0 [facility] Comment on above: Performed By: #### C TANYA, BMP #### [facility] ([id number]) [address], [address] [place] [address] CBC auto differentialon 12-10 Basophils (Bld) [#/Vol] [...] 8.3 g/dL Low 11.7 - 15.5 g/dL [facility] Interpretation and review of laboratory results Abnormal [facility] Lymphocytes (Bld) [#/Vol] 0.7 10*3/uL Low [facility] Lymphocytes/100 WBC (Bld) 7.8 % [facility] MCH (RBC) [Entitic mass] 33.5 pg 27 - 34 pg [facility] MCHC (RBC) [Mass/Vol] 34.9 g/dL 32 - 3 6 g/dL [facility] MCV (RBC) [Entitic vol] 96 fL 80 - 100 fL [facility] Monocytes (Bld) [#/Vol] 1.1 10*3/uL High [facility] Monocytes/100 WBC (Bld) 11.7 % [facility] Neutrophils (Bld) [#/Vol] 7.3 10*3/uL High [facility] Neutrophils/100 WBC (Bld) 79.4 % [facility] Platelet mean volume (Bld) [Entitic vol] 7.4 fL 7 - 12 fL [facility] Platelets (Bld) [#/Vol] 326 10*3/uL [facility] RBC (Bld) [#/Vol] 2.47 10*6/uL Low [facility] WBC corrected for nucl RBC Auto (Bld) [#/Vol] 9.2 [facility] BASIC METABOLIC PANLon 01-05 Anion gap [Moles/Vol] 11 mmol/L Normal 5-15 [facility] Comment on above: Performed By: #### C TANYA, BMP #### [facility] ([id number]) [address], [address] [place] [address] Calcium [Mass/Vol] 8.9 mg/dL Normal 8.5-10.5 [facility] Comment on above: Performed By: #### C TANYA, BMP #### [facility] [facility] ([id number]) [address], [address] [place] [address] Chloride [Moles/Vol] 101 mmol/L Normal 98-109 [facility] Comment on above: Performed By: #### Jeny MARTÍNEZ, BMP #### [facility] ([id number]) [address], [address] [place] [address] CO2 [Moles/Vol] 24 mmol/L Normal 22-32 [facility] Comment on above: Performed By: #### Jeny MARTÍNEZ, BMP #### [facility] ([id number]) [address] [place] [address] Creatinine [Mass/Vol] 0.84 mg/dL Normal 0.40-1.00 [facility] Comment on above: Result Comment: METH OD TRACEABLE TO IDMS STANDARD Performed By: #### Jeny MARTÍNEZ, BMP #### [facility] ([id number]) [address], [address] [place] [address] GFR/1.73 sq M.predicted among non-blacks MDRD (S/P/Bld) [Vol rate/Area] 67 mL/min/{1.73_m2} Normal >59 [facility] Comment on above: Result Comment: Reported eGFR is based on the CKD-EPI 2020 equation that does not use a race coefficient. Performed By: #### C TANYA, BMP #### [facility] ([id number]) [address], [address] [place] [address] Glucose [Mass/Vol] 77 mg/dL Normal 65-99 [facility] Comment on above: Performed By: #### C TANYA, BMP #### [facility] ([id number]) [address] [place] [address] Potassium [Moles/Vol] 4.4 mmol/L Normal 3.5-5.0 [facility] Comment on above: Performed By: #### C TANYA, BMP #### [facility] ([id number]) [address], [address] [place] [address] Sodium [Moles/Vol] 136 mmol/L Normal 134-146 [facility] Comment on above: Performed By: #### C TANYA, BMP #### [facility] ([id number]) [address], [address] [place] [address] Urea nitrogen [Mass/Vol] 20 mg/dL Normal 5-27 [facility] Comment on above: Performed By: #### C TANYA, BMP #### [facility] ([id number]) [address], [address] [place] [address] Basic Metabolic Panelon 11-2 Anion gap [Moles/Vol] 11 mmol/L 5 - 15 mmol/L [facility] Calcium [Mass/Vol] 8.9 mg/dL 8.5 - 10. 5 mg/dL [facility] Chloride [Moles/Vol] 101 mmol/L 98 - 10 9 mmol/L [facility] CO2 [Moles/Vol] 24 mmol/L 22 - 32 mmol/L [facility] Creatinine [Mass/Vol] 0.84 mg/dL 0.40 - 1.00 mg/dL [facility] Comment on above: METHOD TRACEABLE TO IDMS STANDARD eGFR (CKD-EPI)non-race dependent 67 - PINF [facility] Comment on above: Reported eGFR is based on the CKD-EPI 2020 equation that does not use a race coefficient. Glucose [Mass/Vol] 77 mg/dL 65 - 99 mg/dL [facility] Potassium [Moles/Vol] 4.4 mmol/L 3.5 - 5.0 mmol/L [facility] Sodium [Moles/Vol] 136 mmol/L 134 - 146 mmol/L [facility] Urea nitrogen [Mass/Vol] 20 mg/dL 5 - 27 mg/dL [facility] CBC AND AUTO DIFFon 01-06-20 ABSOLUTE BASOPHIL 0.0 X10E9/L Normal 0.0-0.2 [facility] Comment on above: Performed By: #### C TANYA, BMP #### [facility] ([id number]) [address], [address] [place] [address] ABSOLUTE NEUTROPHIL 6.7 X10E9/L High 1.5-6.6 [facility] Comment on above: Performed By: #### Jeny MARTÍNEZ, BMP #### [facility] ([id number]) [address], [address] [place] [address] Basophils/100 WBC (Bld) 0.5 % Normal [facility] Comment on above: Performed By: #### Jeny MARTÍNEZ, BMP #### [facility] ([id number]) [address], [address] [place] [address] Eosinophils (Bld) [#/Vol] 0.2 10*3/uL Normal 0.0-0.4 [facility] Comment on above: Performed By: #### Jeny MARTÍNEZ, BMP #### [facility] ([id number]) [address], [address] [place] [address] Eosinophils/100 WBC (Bld) 1.7 % Normal [facility] Comment on above: Performed By: #### Jeny MARTÍNEZ, BMP #### [facility] ([id number]) [address], [address] [place] [address] Erythrocyte distribution width (RBC) [Ratio] 18.1 % High 11.5-15.0 [facility] Comment on above: Performed By: #### Jeny MARTÍNEZ, BMP #### [facility] ([id number]) [address], [address] [place] [address] Hematocrit (Bld) [Volume fraction] 25.0 % Low 35-47 [facility] Comment on above: Performed By: #### C TANYA, BMP #### [facility] ([id number]) [address], [address] [place] [address] Hemoglobin (Bld) [Mass/Vol] 8.7 g/dL Low 11.7-15.5 [facility] Comment on above: Performed By: #### C TANYA, BMP #### [facility] ([id number]) [address] [place] [address] Lymphocytes (Bld) [#/Vol] 0.9 10*3/uL Low 1.0-3.5 [facility] Comment on above: Performed By: #### Jeny MARTÍNEZ, BMP #### [facility] ([id number]) [address] [place] [address] Lymphocytes/100 WBC (Bld) 9.9 % Normal [facility] Comment on above: Performed By: #### Jeny MARTÍNEZ, BMP #### [facility] ([id number]) [address], [address] [place] [address] MCH (RBC) [Entitic mass] 33.8 pg Normal 27-34 [facility] Comment on above: Performed By: #### C TANYA, BMP #### [facility] ([id number]) [address], [address] [place] [address] MCHC (RBC) [Mass/Vol] 34.6 g/dL Normal 32-36 [facility] Comment on above: Performed By: #### C TANYA, BMP #### [facility] ([id number]) [address], [address] [place] [address] MCV (RBC) [Entitic vol] 98 fL Normal 80-100 [facility] Comment on above: Performed By: #### C TANYA, BMP #### [facility] ([id number]) [address], [address] [place] [address] Monocytes (Bld) [#/Vol] 1.1 10*3/uL High 0-0.9 [facility] Comment on above: Performed By: #### C TANYA, BMP #### [facility] ([id number]) [address], [address] [place] [address] Monocytes/100 WBC (Bld) 12.8 % Normal [facility] Comment on above: Performed By: #### C TANYA, BMP #### [facility] ([id number]) [address], [address] [place] [address] Neutrophils/100 WBC (Bld) 75.1 % Normal [facility] Comment on above: Performed By: #### Jeny MARTÍNEZ, BMP #### [facility] ([id number]) [address], [address] [place] [address] Platelet mean volume (Bld) [Entitic vol] 7.2 fL Normal 7-12 [facility] Comment on above: Performed By: #### C TANYA, BMP #### [facility] ([id number]) [address], [address] [place] [address] Platelets (Bld) [#/Vol] 300 10*3/uL Normal 150-450 [facility] Comment on above: Performed By: #### C TANYA, BMP #### [facility] ([id number]) [address], [address] [place] [address] RBC COUNT 2.56 X10E12/L Low 3.80-5.20 [facility] Comment on above: Performed By: #### C TANYA, BMP #### [facility] ([id number]) [address], [address] [place] [address] WBC (Bld) [#/Vol] 9.0 10*3/uL Normal 4.0-11.0 [facility] Comment on above: Performed By: #### C TANYA, RAYMUNDO #### [facility] ([id number]) [address], [address] [place] [address] CBC auto differentialon 12-10 Basophils (Bld) [#/Vol] 0 10*3/uL [facility] Basophils/100 WBC (Bld) 0.5 % [facility] Eosinophils (Bld) [#/Vol] 0.2 10*3/uL [facility] Eosinophils/100 WBC (Bld) 1.7 % [facility] Erythrocyte distribution width (RBC) [Ratio] 18.1 % High 11.5 - 15.0 % [facility] Hematocrit (Bld) [Volume fraction] 25 % Low 35 - 47 % [facility] Hemoglobin (Bld) [Mass/Vol] 8.7 g/dL Low 11.7 - 15.5 g/dL [facility] Interpretation and review of laboratory results Abnormal [facility] Lymphocytes (Bld) [#/Vol] 0.9 10*3/uL Low [facility] Lymphocytes/100 WBC (Bld) 9.9 % [facility] MCH (RBC) [Entitic mass] 33.8 pg 27 - 34 pg [facility] MCHC (RBC) [Mass/Vol] 34.6 g/dL 32 - 3 6 g/dL [facility] MCV (RBC) [Entitic vol] 98 fL 80 - 100 fL [facility] Monocytes (Bld) [#/Vol] 1.1 10*3/uL High [facility] Monocytes/100 WBC (Bld) 12.8 % [facility] Neutrophils (Bld) [#/Vol] 6.7 10*3/uL High [facility] Neutrophils/100 WBC (Bld) 75.1 % [facility] Platelet mean volume (Bld) [Entitic vol] 7.2 fL 7 - 12 fL [facility] Platelets (Bld) [#/Vol] 300 10*3/uL [facility] RBC (Bld) [#/Vol] 2.56 10*6/uL Low [facility] WBC corrected for nucl RBC Auto (Bld) [#/Vol] 9 [facility] BASIC METABOLIC PANLon 01-04 Anion gap [Moles/Vol] 11 mmol/L Normal 5-15 [facility] Comment on above: Performed By: #### Jeny MARTÍNEZ, BMP #### [facility] ([id number]) [address], [address] [place] [address] Calcium [Mass/Vol] 9.1 mg/dL Normal 8.5-10.5 [facility] Comment on above: Performed By: #### Jeny MARTÍNEZ, BMP #### [facility] ([id number]) [address], [address] [place] [address] Chloride [Moles/Vol] 101 mmol/L Normal 98-109 [facility] Comment on above: Performed By: #### Jeny MARTÍNEZ, BMP #### [facility] ([id number]) [address], [address] [place] [address] CO2 [Moles/Vol] 23 mmol/L Normal 22-32 [facility] Comment on above: Performed By: #### Jeny MARTÍNEZ, BMP #### [facility] ([id number]) [address], [address] [place] [address] Creatinine [Mass/Vol] 0.94 mg/dL Normal 0.40-1.00 [facility] Comment on above: Result Comment: METH OD TRACEABLE TO IDMS STANDARD Performed By: #### Jeny MARTÍNEZ, BMP #### [facility] ([id number]) [address], [address] [place] [address] GFR/1.73 sq M.predicted among non-blacks MDRD (S/P/Bld) [Vol rate/Area] 59 mL/min/{1.73_m2} Low >59 [facility] Comment on above: Result Comment: Reported eGFR is based on the CKD-EPI 2020 equation that does not use a race coefficient. Performed By: #### Jeny MARTÍNEZ, BMP #### [facility] ([id number]) [address], [address] [place] [address] Glucose [Mass/Vol] 102 mg/dL High 65-99 [facility] Comment on above: Performed By: #### Jeny MARTÍNEZ, BMP #### [facility] ([id number]) [address], [address] [place] [address] Potassium [Moles/Vol] 4.4 mmol/L Normal 3.5-5.0 [facility] Comment on above: Performed By: #### Jeny MARTÍNEZ, BMP #### [facility] ([id number]) [address], [address] [place] [address] Sodium [Moles/Vol] 135 mmol/L Normal 134-146 [facility] Comment on above: Performed By: #### Jeny MARTÍNEZ, BMP #### [facility] ([id number]) [address], [address] [place] [address] Urea nitrogen [Mass/Vol] 21 mg/dL Normal 5-27 [facility] Comment on above: Performed By: #### Jeny MARTÍNEZ, BMP #### [facility] ([id number]) [address], [address] [place] [address] Bacteria identified Cx Nom ( U)on 01-05-2024 Interpretation and review of laboratory results Abnormal [facility] Service comment (Unsp spec) [Interp] >100,000 ORGANISMS/mL KLEBSIELLA PNEUMONIAE Abnormal [facility] Basic Metabolic Panelon 12-10 Anion gap [Moles/Vol] 11 mmol/L 5 - 15 mmol/L [facility] Calcium [Mass/Vol] 9.1 mg/dL 8.5 - 10. 5 mg/dL [facility] Chloride [Moles/Vol] 101 mmol/L 98 - 10 9 mmol/L [facility] CO2 [Moles/Vol] 23 mmol/L 22 - 32 mmol/L [facility] Creatinine [Mass/Vol] 0.94 mg/dL 0.40 - 1.00 mg/dL [facility] Comment on above: METHOD TRACEABLE TO [facility] STANDARD eGFR (CKD-EPI)non-race dependent 59 Low - PINF [facility] Comment on above: Reported eGFR is based on the CKD-EPI 2020 equation that does not use a race coefficient. Glucose [Mass/Vol] 102 mg/dL High 65 - 99 mg/dL [facility] Interpretation and review of laboratory results Abnormal [facility] Potassium [Moles/Vol] 4.4 mmol/L 3.5 - 5.0 mmol/L [facility] Sodium [Moles/Vol] 135 mmol/L 134 - 146 mmol/L [facility] Urea nitrogen [Mass/Vol] 21 mg/dL 5 - 27 mg/dL [facility] CBC AND AUTO DIFFon 01-05-20 ABSOLUTE BASOPHIL 0.0 X10E9/L Normal 0.0-0.2 [facility] Comment on above: Performed By: #### C TANYA, BMP #### [facility] ([id number]) [address], [address] [place] [address] ABSOLUTE NEUTROPHIL 10.5 X10E9/L High 1.5-6.6 [facility] Comment on above: Performed By: #### C TANYA, BMP #### [facility] ([id number]) [address], [address] [place] [address] Basophils/100 WBC (Bld) 0.3 % Normal [facility] Comment on above: Performed By: #### C TANYA, BMP #### [facility] ([id number]) [address], [address] [place] [address] Eosinophils (Bld) [#/Vol] 0.1 10*3/uL Normal 0.0-0.4 [facility] Comment on above: Performed By: #### C TANYA, BMP #### [facility] ([id number]) [address] [place] [address] Eosinophils/100 WBC (Bld) 0.8 % Normal [facility] Comment on above: Performed By: #### C TANYA, BMP #### [facility] ([id number]) [address] [place] [address] Erythrocyte distribution width (RBC) [Ratio] 18.4 % High 11.5-15.0 [facility] Comment on above: Performed By: #### C TANYA, BMP #### [facility] ([id number]) [address] [place] [address] Hematocrit (Bld) [Volume fraction] 29.2 % Low 35-47 [facility] Comment on above: Performed By: #### C TANYA, BMP #### [facility] ([id number]) [address] [facility] [address] Hemoglobin (Bld) [Mass/Vol] 9.9 g/dL Low 11.7-15.5 [facility] Comment on above: Performed By: #### C TANYA, BMP #### [facility] ([id number]) [address] [place] [address] Lymphocytes (Bld) [#/Vol] 0.9 10*3/uL Low 1.0-3.5 [facility] Comment on above: Performed By: #### C TANYA, BMP #### [facility] ([id number]) [address], [address] [place] [address] Lymphocytes/100 WBC (Bld) 7.3 % Normal [facility] Comment on above: Performed By: #### C TANYA, BMP #### [facility] ([id number]) [address] [place] [address] MCH (RBC) [Entitic mass] 32.9 pg Normal 27-34 [facility] Comment on above: Performed By: #### C TANYA, BMP #### [facility] ([id number]) [address] [place] [address] MCHC (RBC) [Mass/Vol] 33.8 g/dL Normal 32-36 [facility] Comment on above: Performed By: #### C TANYA, BMP #### [facility] ([id number]) [address] [place] [address] MCV (RBC) [Entitic vol] 97 fL Normal 80-100 [facility] Comment on above: Performed By: #### C TANYA, BMP #### [facility] ([id number]) [address] [place] [address] Monocytes (Bld) [#/Vol] 1.4 10*3/uL High 0-0.9 [facility] Comment on above: Performed By: #### C TANYA, BMP #### [facility] ([id number]) [address] [place] [address] Monocytes/100 WBC (Bld) 10.7 % Normal [facility] Comment on above: Performed By: #### Jeny MARTÍNEZ, BMP #### [facility] ([id number]) [address] [place] [address] Neutrophils/100 WBC (Bld) 80.9 % Normal [facility] Comment on above: Performed By: #### Jeny MARTÍNEZ, BMP #### [facility] ([id number]) [address] [place] [address] Platelet mean volume (Bld) [Entitic vol] 7.4 fL Normal 7-12 [facility] Comment on above: Performed By: #### C TANYA, BMP #### [facility] ([id number]) [address] [place] [address] Platelets (Bld) [#/Vol] 309 10*3/uL Normal 150-450 [facility] Comment on above: Performed By: #### C TANYA, BMP #### [facility] ([id number]) [address] [place] [address] RBC COUNT 3.00 X10E12/L Low 3.80-5.20 [facility] Comment on above: Performed By: #### Jeny MARTÍNEZ, BMP #### [facility] ([id number]) [address] [place] [address] WBC (Bld) [#/Vol] 12.9 10*3/uL High 4.0-11.0 [facility] Comment on above: Performed By: #### Jeny MARTÍNEZ, BMP #### [facility] ([id number]) [address] [place] [address] CBC auto differentialon 12-10 Basophils (Bld) [#/Vol] 0 10*3/uL [facility] Basophils/100 WBC (Bld) 0.3 % [facility] Eosinophils (Bld) [#/Vol] 0.1 10*3/uL [facility] Eosinophils/100 WBC (Bld) 0.8 % [facility] Erythrocyte distribution width (RBC) [Ratio] 18.4 % High 11.5 - 15.0 % [facility] Hematocrit (Bld) [Volume fraction] 29.2 % Low 35 - 47 % [facility] Hemoglobin (Bld) [Mass/Vol] 9.9 g/dL Low 11.7 - 15.5 g/dL [facility] Interpretation and review of laboratory results Abnormal [facility] Lymphocytes (Bld) [#/Vol] 0.9 10*3/uL Low [facility] Lymphocytes/100 WBC (Bld) 7.3 % [facility] MCH (RBC) [Entitic mass] 32.9 pg 27 - 34 pg [facility] MCHC (RBC) [Mass/Vol] 33.8 g/dL 32 - 3 6 g/dL [facility] MCV (RBC) [Entitic vol] 97 fL 80 - 100 fL [facility] Monocytes (Bld) [#/Vol] 1.4 10*3/uL High [facility] Monocytes/100 WBC (Bld) 10.7 % [facility] Neutrophils (Bld) [#/Vol] 10.5 10*3/uL High [facility] Neutrophils/100 WBC (Bld) 80.9 % [facility] Platelet mean volume (Bld) [Entitic vol] 7.4 fL 7 - 12 fL [facility] Platelets (Bld) [#/Vol] 309 10*3/uL [facility] RBC (Bld) [#/Vol] 3 10*6/uL Low [facility] WBC corrected for nucl RBC Auto (Bld) [#/Vol] 12.9 High [facility] Glucose Glucometer (BldC) [M ass/Vol]on 01-05-2024 Glucose [Mass/Vol] 96 mg/dL 65 - 99 mg/dL [facility] Glucose [Mass/Vol] 96 mg/dL Normal 65-99 [facility] BASIC METABOLIC PANLon 01-03 Anion gap [Moles/Vol] 7 mmol/L Normal 5-15 [facility] Comment on above: Performed By: #### C TANYA, BMP #### [facility] ([id number]) [address] [place] [address] Calcium [Mass/Vol] 8.6 mg/dL Normal 8.5-10.5 [facility] Comment on above: Performed By: #### C TANYA, BMP #### [facility] ([id number]) [address] [place] [address] Chloride [Moles/Vol] 103 mmol/L Normal 98-109 [facility] Comment on above: Performed By: #### C BC, BMP #### [facility] ([id number]) [address] [place] [address] CO2 [Moles/Vol] 23 mmol/L Normal 22-32 [facility] Comment on above: Performed By: #### C TANYA, BMP #### [facility] ([id number]) [address] [place] [address] Creatinine [Mass/Vol] 1.11 mg/dL High 0.40-1.00 [facility] Comment on above: Result Comment: METH OD TRACEABLE TO IDMS STANDARD Performed By: #### C TANYA, BMP #### [facility] ([id number]) [address] [place] [address] GFR/1.73 sq M.predicted among non-blacks MDRD (S/P/Bld) [Vol rate/Area] 48 mL/min/{1.73_m2} Low >59 [facility] Comment on above: Result Comment: Reported eGFR is based on the CKD-EPI 2020 equation that does not use a race coefficient. Performed By: #### C TANYA, BMP #### [facility] ([id number]) [address] [place] [address] Glucose [Mass/Vol] 85 mg/dL Normal 65-99 [facility] Comment on above: Performed By: #### Jeny MARTÍNEZ, BMP #### [facility] ([id number]) [address] [place] [address] Potassium [Moles/Vol] 5.4 mmol/L High 3.5-5.0 [facility] Comment on above: Result Comment: SPEC IMEN HEMOLYZED, RESULTS INCREASED MODERATELY HEMOLYZED Performed By: #### C TANYA, BMP #### [facility] ([id number]) [address] [place] [address] Sodium [Moles/Vol] 133 mmol/L Low 134-146 [facility] Comment on above: Performed By: #### C TANYA, BMP #### [facility] ([id number]) [address] [place] [address] Urea nitrogen [Mass/Vol] 21 mg/dL Normal 5-27 [facility] Comment on above: Performed By: #### C TANYA, RAYMUNDO #### [facility] ([id number]) [address] [place] [address] BLOOD CULTUREon 01-04-2024 Bacteria identified Aer cx Nom (Bld) CULTURE RESULTS NO GROWTH 5 DAYS Normal [facility] Bacteria identified Aer cx Nom (Bld) CULTURE RESULTS NO GROWTH 5 DAYS Normal [facility] Basic Metabolic Panelon 12-10 Anion gap [Moles/Vol] 7 mmol/L 5 - 15 mmol/L [facility] Calcium [Mass/Vol] 8.6 mg/dL 8.5 - 10. 5 mg/dL [facility] Chloride [Moles/Vol] 103 mmol/L 98 - 10 9 mmol/L [facility] CO2 [Moles/Vol] 23 mmol/L 22 - 32 mmol/L [facility] Creatinine [Mass/Vol] 1.11 mg/dL High 0.40 - 1.00 mg/dL [facility] Comment on above: METHOD TRACEABLE TO IDNM STANDARD eGFR (CKD-EPI)non-race dependent 48 Low - PINF [facility] Comment on above: Reported eGFR is based on the CKD-EPI 2020 equation that does not use a race coefficient. Glucose [Mass/Vol] 85 mg/dL 65 - 99 mg/dL [facility] Interpretation and review of laboratory results Abnormal [facility] Potassium [Moles/Vol] 5.4 mmol/L High 3.5 - 5.0 mmol/L [facility] Comment on above: SPECIMEN HEMOLYZED, RESULTS INCREASED MODERATELY HEMOLYZED Sodium [Moles/Vol] 133 mmol/L Low 134 - 146 mmol/L [facility] Urea nitrogen [Mass/Vol] 21 mg/dL 5 - 27 mg/dL [facility] CBC AND AUTO DIFFon 01-04-20 24 ABSOLUTE BASOPHIL 0.1 X10E9/L Normal 0.0-0.2 [facility] Comment on above: Performed By: #### C TANYA, BMP #### [facility] ([id number]) [address], [address] [place] [address] ABSOLUTE NEUTROPHIL 12.3 X10E9/L High 1.5-6.6 [facility] Comment on above: Performed By: #### C TANYA, BMP #### [facility] ([id number]) [address], [address] [place] [address] Basophils/100 WBC (Bld) 0.4 % Normal [facility] Comment on above: Performed By: #### C TANYA, BMP #### [facility] ([id number]) [address], [address] [place] [address] Eosinophils (Bld) [#/Vol] 0.0 10*3/uL Normal 0.0-0.4 [facility] Comment on above: Performed By: #### C TANYA, BMP #### [facility] ([id number]) [address] [place] [address] Eosinophils/100 WBC (Bld) 0.2 % Normal [facility] Comment on above: Performed By: #### C TANYA, BMP #### [facility] ([id number]) [address], [address] [place] [address] Erythrocyte distribution width (RBC) [Ratio] 18.5 % High 11.5-15.0 [facility] Comment on above: Performed By: #### C TANYA, BMP #### [facility] ([id number]) [address], [address] [place] [address] FRAGMENT 1+ Abnormal NONE [facility] Comment on above: Performed By: #### C TANYA, BMP #### [facility] ([id number]) [address], [address] [place] [address] Hematocrit (Bld) [Volume fraction] 25.8 % Low 35-47 [facility] Comment on above: Performed By: #### C BC, BMP #### [facility] ([id number]) [address], [address] [place] [address] Hemoglobin (Bld) [Mass/Vol] 8.8 g/dL Low 11.7-15.5 [facility] Comment on above: Performed By: #### C BC, BMP #### [facility] ([id number]) [address] [place] [address] Lymphocytes (Bld) [#/Vol] 1.1 10*3/uL Normal 1.0-3.5 [facility] Comment on above: Performed By: #### C TANYA, BMP #### [facility] ([id number]) [address], [address] [place] [address] Lymphocytes/100 WBC (Bld) 7.0 % Normal [facility] Comment on above: Performed By: #### C TANYA, BMP #### [facility] ([id number]) [address], [address] [place] [address] MCH (RBC) [Entitic mass] 32.7 pg Normal 27-34 [facility] Comment on above: Performed By: #### C BC, BMP #### [facility] ([id number]) [address] [place] [address] MCHC (RBC) [Mass/Vol] 34.2 g/dL Normal 32-36 [facility] Comment on above: Performed By: #### C BC, BMP #### [facility] ([id number]) [address], [address] [place] [address] MCV (RBC) [Entitic vol] 96 fL Normal 80-100 [facility] Comment on above: Performed By: #### C BC, BMP #### [facility] ([id number]) [address] [place] [address] Monocytes (Bld) [#/Vol] 2.2 10*3/uL High 0-0.9 [facility] Comment on above: Performed By: #### Jeny MARTÍNEZ, BMP #### [facility] ([id number]) [address], [address] [place] [address] Monocytes/100 WBC (Bld) 14.0 % Normal [facility] Comment on above: Performed By: #### Jeny MARTÍNEZ, BMP #### [facility] ([id number]) [address], [address] [place] [address] Neutrophils/100 WBC (Bld) 78.4 % Normal [facility] Comment on above: Performed By: #### Jeny MARTÍNEZ, BMP #### [facility] ([id number]) [address], [address] [place] [address] OVALOCYTE 1+ Abnormal NONE [facility] Comment on above: Performed By: #### Jeny MARTÍNEZ, BMP #### [facility] ([id number]) [address], [address] [place] [address] Platelet mean volume (Bld) [Entitic vol] 7.9 fL Normal 7-12 [facility] Comment on above: Performed By: #### Jeny MARTÍNEZ, BMP #### [facility] ([id number]) [address] [place] [address] Platelets (Bld) [#/Vol] 224 10*3/uL Normal 150-450 [facility] Comment on above: Performed By: #### Jeny MARTÍNEZ, BMP #### [facility] ([id number]) [address], [address] [place] [address] POLYCHROMASIA 1+ Abnormal NONE [facility] Comment on above: Performed By: #### Jeny MARTÍNEZ, BMP #### [facility] ([id number]) [address], [address] [place] [address] RBC COUNT 2.70 X10E12/L Low 3.80-5.20 [facility] Comment on above: Performed By: #### C TANYA, RAYMUNDO #### [facility] ([id number]) [address], [address] [place] [address] WBC (Bld) [#/Vol] 15.7 10*3/uL High 4.0-11.0 [facility] Comment on above: Performed By: #### C TANYA, RAYMUNDO #### [facility] ([id number]) [address] [place] [address] CBC auto differentialon 12-10 Basophils (Bld) [#/Vol] 0.1 10*3/uL [facility] Basophils/100 WBC (Bld) 0.4 % [facility] Eosinophils (Bld) [#/Vol] 0 10*3/uL [facility] Eosinophils/100 WBC (Bld) 0.2 % [facility] Erythrocyte distribution width (RBC) [Ratio] 18.5 % High 11.5 - 15.0 % [facility] Fragments LM Ql (Bld) 1+ Abnormal NONE^NONE [facility] Hematocrit (Bld) [Volume fraction] 25.8 % Low 35 - 47 % [facility] Hemoglobin (Bld) [Mass/Vol] 8.8 g/dL Low 11.7 - 15.5 g/dL [facility] Interpretation and review of laboratory results Abnormal [facility] Lymphocytes (Bld) [#/Vol] 1.1 10*3/uL [facility] Lymphocytes/100 WBC (Bld) 7 % [facility] MCH (RBC) [Entitic mass] 32.7 pg 27 - 34 pg [facility] MCHC (RBC) [Mass/Vol] 34.2 g/dL 32 - 3 6 g/dL [facility] MCV (RBC) [Entitic vol] 96 fL 80 - 100 fL [facility] Monocytes (Bld) [#/Vol] 2.2 10*3/uL High [facility] Monocytes/100 WBC (Bld) 14 % [facility] Neutrophils (Bld) [#/Vol] 12.3 10*3/uL High [facility] Neutrophils/100 WBC (Bld) 78.4 % [facility] Ovalocytes LM Ql (Bld) 1+ Abnormal NONE^NONE [facility] Platelet mean volume (Bld) [Entitic vol] 7.9 fL 7 - 12 fL [facility] Platelets (Bld) [#/Vol] 224 10*3/uL [facility] Polychromasia LM Ql (Bld) 1+ Abnormal NONE^NONE [facility] RBC (Bld) [#/Vol] 2.7 10*6/uL Low [facility] WBC corrected for nucl RBC Auto (Bld) [#/Vol] 15.7 High [facility] CT ABDOMEN AND PELVIS WO CON [...] Sampson MD on 01/04/2024 4:21 PM Normal [facility] CT Abdomen and Pelvis WO con traston [...] Zachary Sampson MD on 01/04/2024 4:21 PM [facility] Petar Sampson MD - 01/04/2024 CLINICAL INFORMATION: Sepsis. TECHNIQUE: [...] Zachary Sampson MD on 01/04/2024 4:21 PM [facility] Radiology Study observation (narrative) [facility] CT Abdomen and Pelvis WO con trastOrdered By: Petar Sampson on 01-04-2024 [facility] Work Phone: ECG 12 leadon 01-04-2024 TRACEMASTERVUE [facility] Glucose Glucometer (BldC) [M ass/Vol]on 01-04-2024 Glucose [Mass/Vol] 140 mg/dL High 65 - 99 mg/dL [facility] Interpretation and review of laboratory results Abnormal [facility] Glucose [Mass/Vol] 140 mg/dL High 65-99 [facility] Glucose [Mass/Vol] 93 mg/dL 65 - 99 mg/dL [facility] Glucose [Mass/Vol] 93 mg/dL Normal 65-99 [facility] Glucose [Mass/Vol] 86 mg/dL 65 - 99 mg/dL [facility] Glucose [Mass/Vol] 86 mg/dL Normal 65-99 [facility] Glucose [Mass/Vol] 94 mg/dL 65 - 99 mg/dL [facility] Glucose [Mass/Vol] 94 mg/dL Normal 65-99 [facility] Glucose [Mass/Vol] 96 mg/dL 65 - 99 mg/dL [facility] Glucose [Mass/Vol] 96 mg/dL Normal 65-99 [facility] POTASSIUMon 01-04-2024 Potassium [Moles/Vol] 4.4 mmol/L Normal 3.5-5.0 [facility] Comment on above: Performed By: #### C BC, BMP #### [facility] ([id number]) [address], [address] [place] [address] Potassiumon 01-04-2024 Potassium [Moles/Vol] 4.4 mmol/L 3.5 - 5.0 mmol/L [facility] Potassium [Moles/Vol]on 12-10 [facility] BASIC METABOLIC PANLon 01-02 Anion gap [Moles/Vol] 10 mmol/L Normal 5-15 [facility] Comment on above: Performed By: #### A FAB5 #### [facility] ([id number]) [address] [place] [address] Calcium [Mass/Vol] 9.0 mg/dL Normal 8.5-10.5 [facility] Comment on above: Performed By: #### A FAB5 #### [facility] ([id number]) [address] [place] [address] Chloride [Moles/Vol] 104 mmol/L Normal 98-109 [facility] Comment on above: Performed By: #### A FAB5 #### [facility] ([id number]) [address] [place] [address] CO2 [Moles/Vol] 23 mmol/L Normal 22-32 [facility] Comment on above: Performed By: #### A FAB5 #### [facility] ([id number]) [address] [place] [address] Creatinine [Mass/Vol] 1.32 mg/dL High 0.40-1.00 [facility] Comment on above: Result Comment: METH OD TRACEABLE TO IDMS STANDARD Performed By: #### A FAB5 #### [facility] ([id number]) [address] [place] [address] GFR/1.73 sq M.predicted among non-blacks MDRD (S/P/Bld) [Vol rate/Area] 39 mL/min/{1.73_m2} Low >59 [facility] Comment on above: Result Comment: Reported eGFR is based on the CKD-EPI 2020 equation that does not use a race coefficient. Performed By: #### A FAB5 #### [facility] ([id number]) [address] [place] [address] Glucose [Mass/Vol] 105 mg/dL High 65-99 [facility] Comment on above: Performed By: #### A FAB5 #### [facility] ([id number]) [address] [place] [address] Potassium [Moles/Vol] 5.1 mmol/L High 3.5-5.0 [facility] Comment on above: Performed By: #### A FAB5 #### [facility] ([id number]) [address] [place] [address] Sodium [Moles/Vol] 137 mmol/L Normal 134-146 [facility] Comment on above: Performed By: #### A FAB5 #### [facility] ([id number]) [address] [place] [address] Urea nitrogen [Mass/Vol] 31 mg/dL High 5-27 [facility] Comment on above: Performed By: #### A FAB5 #### [facility] ([id number]) [address] [place] [address] Basic Metabolic Panelon 11-2 Anion gap [Moles/Vol] 10 mmol/L 5 - 15 mmol/L [facility] Calcium [Mass/Vol] 9 mg/dL 8.5 - 10. 5 mg/dL [facility] Chloride [Moles/Vol] 104 mmol/L 98 - 10 9 mmol/L [facility] CO2 [Moles/Vol] 23 mmol/L 22 - 32 mmol/L [facility] Creatinine [Mass/Vol] 1.32 mg/dL High 0.40 - 1.00 mg/dL [facility] Comment on above: METHOD TRACEABLE TO IDNM STANDARD eGFR (CKD-EPI)non-race dependent 39 Low - PINF [facility] Comment on above: Reported eGFR is based on the CKD-EPI 2020 equation that does not use a race coefficient. Glucose [Mass/Vol] 105 mg/dL High 65 - 99 mg/dL [facility] Interpretation and review of laboratory results Abnormal [facility] Potassium [Moles/Vol] 5.1 mmol/L High 3.5 - 5.0 mmol/L [facility] Sodium [Moles/Vol] 137 mmol/L 134 - 146 mmol/L [facility] Urea nitrogen [Mass/Vol] 31 mg/dL High 5 - 27 mg/dL [facility] CBC AND AUTO DIFFon 01-03-20 ABSOLUTE BASOPHIL 0.0 X10E9/L Normal 0.0-0.2 [facility] Comment on above: Performed By: #### A FAB5 #### [facility] ([id number]) [address] [place] [address] ABSOLUTE NEUTROPHIL 11.7 X10E9/L High 1.5-6.6 [facility] Comment on above: Performed By: #### A FAB5 #### [facility] ([id number]) [address] [place] [address] Basophils/100 WBC (Bld) 0.1 % Normal [facility] Comment on above: Performed By: #### A FAB5 #### [facility] ([id number]) [address] [place] [address] Eosinophils (Bld) [#/Vol] 0.0 10*3/uL Normal 0.0-0.4 [facility] Comment on above: Performed By: #### A FAB5 #### [facility] ([id number]) [address] [place] [address] Eosinophils/100 WBC (Bld) 0.0 % Normal [facility] Comment on above: Performed By: #### A FAB5 #### [facility] ([id number]) [address] [place] [address] Erythrocyte distribution width (RBC) [Ratio] 20.1 % High 11.5-15.0 [facility] Comment on above: Performed By: #### A FAB5 #### [facility] ([id number]) [address] [place] [address] Hematocrit (Bld) [Volume fraction] 27.1 % Low 35-47 [facility] Comment on above: Performed By: #### A FAB5 #### [facility] ([id number]) [address] [place] [address] Hemoglobin (Bld) [Mass/Vol] 9.2 g/dL Low 11.7-15.5 [facility] Comment on above: Performed By: #### A FAB5 #### [facility] ([id number]) [address] [place] [address] Lymphocytes (Bld) [#/Vol] 0.8 10*3/uL Low 1.0-3.5 [facility] Comment on above: Performed By: #### A FAB5 #### [facility] ([id number]) [address] [place] [address] Lymphocytes/100 WBC (Bld) 5.5 % Normal [facility] Comment on above: Performed By: #### A FAB5 #### [facility] ([id number]) [address] [place] [address] MCH (RBC) [Entitic mass] 32.7 pg Normal 27-34 [facility] Comment on above: Performed By: #### A FAB5 #### [facility] ([id number]) [address] [place] [address] MCHC (RBC) [Mass/Vol] 33.9 g/dL Normal 32-36 [facility] Comment on above: Performed By: #### A FAB5 #### [facility] ([id number]) [address] [place] [address] MCV (RBC) [Entitic vol] 97 fL Normal 80-100 [facility] Comment on above: Performed By: #### A FAB5 #### [facility] ([id number]) [address] [place] [address] Monocytes (Bld) [#/Vol] 1.8 10*3/uL High 0-0.9 [facility] Comment on above: Performed By: #### A FAB5 #### [facility] ([id number]) [address] [place] [address] Monocytes/100 WBC (Bld) 12.4 % Normal [facility] Comment on above: Performed By: #### A FAB5 #### [facility] ([id number]) [address] [place] [address] Neutrophils/100 WBC (Bld) 82.0 % Normal [facility] Comment on above: Performed By: #### A FAB5 #### [facility] ([id number]) [address] [place] [address] Platelet mean volume (Bld) [Entitic vol] 7.6 fL Normal 7-12 [facility] Comment on above: Performed By: #### A FAB5 #### [facility] ([id number]) [address] [place] [address] Platelets (Bld) [#/Vol] 303 10*3/uL Normal 150-450 [facility] Comment on above: Performed By: #### A FAB5 #### [facility] ([id number]) [address] [place] [address] RBC COUNT 2.81 X10E12/L Low 3.80-5.20 [facility] Comment on above: Performed By: #### A FAB5 #### [facility] ([id number]) [address] [place] [address] WBC (Bld) [#/Vol] 14.3 10*3/uL High 4.0-11.0 [facility] Comment on above: Performed By: #### A FAB5 #### [facility] ([id number]) [address] [place] [address] CBC auto differentialon 12-10 Basophils (Bld) [#/Vol] 0 10*3/uL [facility] Basophils/100 WBC (Bld) 0.1 % [facility] Eosinophils (Bld) [#/Vol] 0 10*3/uL [facility] Eosinophils/100 WBC (Bld) 0 % [facility] Erythrocyte distribution width (RBC) [Ratio] 20.1 % High 11.5 - 15.0 % [facility] Hematocrit (Bld) [Volume fraction] 27.1 % Low 35 - 47 % [facility] Hemoglobin (Bld) [Mass/Vol] 9.2 g/dL Low 11.7 - 15.5 g/dL [facility] Interpretation and review of laboratory results Abnormal [facility] Lymphocytes (Bld) [#/Vol] 0.8 10*3/uL Low [facility] Lymphocytes/100 WBC (Bld) 5.5 % [facility] MCH (RBC) [Entitic mass] 32.7 pg 27 - 34 pg [facility] MCHC (RBC) [Mass/Vol] 33.9 g/dL 32 - 3 6 g/dL [facility] MCV (RBC) [Entitic vol] 97 fL 80 - 100 fL [facility] Monocytes (Bld) [#/Vol] 1.8 10*3/uL High [facility] Monocytes/100 WBC (Bld) 12.4 % [facility] Neutrophils (Bld) [#/Vol] 11.7 10*3/uL High [facility] Neutrophils/100 WBC (Bld) 82 % [facility] Platelet mean volume (Bld) [Entitic vol] 7.6 fL 7 - 12 fL [facility] Platelets (Bld) [#/Vol] 303 10*3/uL [facility] RBC (Bld) [#/Vol] 2.81 10*6/uL Low [facility] WBC corrected for nucl RBC Auto (Bld) [#/Vol] 14.3 High [facility] Glucose Glucometer (BldC) [M ass/Vol]on 01-03-2024 Glucose [Mass/Vol] 108 mg/dL High 65 - 99 mg/dL [facility] Interpretation and review of laboratory results Abnormal [facility] Glucose [Mass/Vol] 108 mg/dL High 65-99 [facility] Glucose [Mass/Vol] 82 mg/dL 65 - 99 mg/dL [facility] Glucose [Mass/Vol] 82 mg/dL Normal 65-99 [facility] Glucose [Mass/Vol] 93 mg/dL 65 - 99 mg/dL [facility] Glucose [Mass/Vol] 93 mg/dL Normal 65-99 [facility] Glucose [Mass/Vol] 103 mg/dL High 65 - 99 mg/dL [facility] Interpretation and review of laboratory results Abnormal [facility] Glucose [Mass/Vol] 103 mg/dL High 65-99 [facility] POTASSIUMon 01-03-2024 Potassium [Moles/Vol] 5.0 mmol/L Normal 3.5-5.0 [facility] Comment on above: Performed By: #### A FAB5 #### [facility] ([id number]) [address] [place] [address] PROTIME AND INRon 01-03-2024 INR Coag (PPP) [Relative time] 1.0 {INR} Normal 0.8-1.1 [facility] Comment on above: Performed By: #### A FAB5 #### [facility] ([id number]) [address] [place] [address] PT Coag (PPP) [Time] 12.2 s Normal 9.8-13.2 [facility] Comment on above: Performed By: #### A FAB5 #### [facility] ([id number]) [address] [place] [address] Potassiumon 01-03-2024 Potassium [Moles/Vol] 5 mmol/L 3.5 - 5.0 mmol/L [facility] Potassium [Moles/Vol]on 12-10 [facility] Protime & INRon 01-03-2024 INR Coag (PPP) [Relative time] 1 {INR} [facility] PT Coag (PPP) [Time] 12.[address] [facility] URINE CULTUREon 01-03-2024 Bacteria identified Cx Nom [...] F TRIMETH/SULFAMETHOXAZOL E S <=1/19 F Susceptible [facility] Comment on above: Performed By: #### C BC, BMP #### [facility] ([id number]) [address], [address] [place] [address] BASIC METABOLIC PANLon 01-01 GFR/1.73 sq M.predicted among non-blacks MDRD (S/P/Bld) [Vol rate/Area] 57 mL/min/{1.73_m2} Low >59 [facility] Comment on above: Result Comment: Reported eGFR is based on the CKD-EPI 2020 equation that does not use a race coefficient. Performed By: #### I BC #### [facility] ([id number]) [address] [facility] [place] [address] Anion gap [Moles/Vol] 9 mmol/L Normal 5-15 [facility] Comment on above: Performed By: #### I BC #### [facility] ([id number]) [address] [facility] [address] Calcium [Mass/Vol] 8.4 mg/dL Low 8.5-10.5 [facility] Comment on above: Performed By: #### I BC #### [facility] ([id number]) [address] [place] [address] Chloride [Moles/Vol] 106 mmol/L Normal 98-109 [facility] Comment on above: Performed By: #### I BC #### [facility] ([id number]) [address] [place] [address] CO2 [Moles/Vol] 21 mmol/L Low 22-32 [facility] Comment on above: Performed By: #### I BC #### [facility] ([id number]) [address] [place] [address] Creatinine [Mass/Vol] 0.96 mg/dL Normal 0.40-1.00 [facility] Comment on above: Result Comment: METH OD TRACEABLE TO IDMS STANDARD Performed By: #### I BC #### [facility] ([id number]) [address] [place] [address] METHOD TRACEABLE TO IDMS STANDARD Glucose [Mass/Vol] 153 mg/dL High 65-99 [facility] Comment on above: Performed By: #### I BC #### [facility] ([id number]) [address] [place] [address] Potassium [Moles/Vol] 4.7 mmol/L Normal 3.5-5.0 [facility] Comment on above: Performed By: #### I BC #### [facility] ([id number]) [address] [facility] [place] [address] Sodium [Moles/Vol] 136 mmol/L Normal 134-146 [facility] Comment on above: Performed By: #### I BC #### [facility] [facility] ([id number]) [address] [place] [address] Urea nitrogen [Mass/Vol] 22 mg/dL Normal 5-27 [facility] Comment on above: Performed By: #### I BC #### [facility] ([id number]) [address] [place] [address] Basic Metabolic Panelon 11-2 eGFR (CKD-EPI)non-race dependent 57 Low - PINF [facility] Comment on above: Reported eGFR is based on the CKD-EPI 2020 equation that does not use a race coefficient. CBC AND AUTO DIFFon 01-02-20 ABSOLUTE BASOPHIL 0.0 X10E9/L Normal 0.0-0.2 [facility] Comment on above: Performed By: #### I BC #### [facility] ([id number]) [address] [place] [address] ABSOLUTE NEUTROPHIL 11.2 X10E9/L High 1.5-6.6 [facility] Comment on above: Performed By: #### I BC #### [facility] ([id number]) [address] [place] [address] Eosinophils (Bld) [#/Vol] 0.0 10*3/uL Normal 0.0-0.4 [facility] Comment on above: Performed By: #### I BC #### [facility] ([id number]) [address] [place] [address] Eosinophils/100 WBC (Bld) 0.0 % Normal [facility] Comment on above: Performed By: #### I BC #### [facility] ([id number]) [address] [place] [address] Erythrocyte distribution width (RBC) [Ratio] 20.0 % High 11.5-15.0 [facility] Comment on above: Performed By: #### I BC #### [facility] ([id number]) [address] [place] [address] RBC COUNT 2.70 X10E12/L Low 3.80-5.20 [facility] Comment on above: Performed By: #### I BC #### [facility] ([id number]) [address] [place] [address] WBC (Bld) [#/Vol] 11.9 10*3/uL High 4.0-11.0 [facility] Comment on above: Performed By: #### I BC #### [facility] ([id number]) [address] [place] [address] Basophils/100 WBC (Bld) 0.1 % Normal [facility] Comment on above: Performed By: #### I BC #### [facility] ([id number]) [address] [place] [address] Hematocrit (Bld) [Volume fraction] 25.6 % Low 35-47 [facility] Comment on above: Performed By: #### I BC #### [facility] ([id number]) [address] [place] [address] Hemoglobin (Bld) [Mass/Vol] 8.8 g/dL Low 11.7-15.5 [facility] Comment on above: Performed By: #### I BC #### [facility] ([id number]) [address] [place] [address] Lymphocytes (Bld) [#/Vol] 0.3 10*3/uL Low 1.0-3.5 [facility] Comment on above: Performed By: #### I BC #### [facility] ([id number]) [address] [place] [address] Lymphocytes/100 WBC (Bld) 2.4 % Normal [facility] Comment on above: Performed By: #### I BC #### [facility] ([id number]) [address] [place] [address] MCH (RBC) [Entitic mass] 32.7 pg Normal 27-34 [facility] Comment on above: Performed By: #### I BC #### [facility] ([id number]) [address] [place] [address] MCHC (RBC) [Mass/Vol] 34.4 g/dL Normal 32-36 [facility] Comment on above: Performed By: #### I BC #### [facility] ([id number]) [address] [place] [address] MCV (RBC) [Entitic vol] 95 fL Normal 80-100 [facility] Comment on above: Performed By: #### I BC #### [facility] ([id number]) [address] [place] [address] Monocytes (Bld) [#/Vol] 0.5 10*3/uL Normal 0-0.9 [facility] Comment on above: Performed By: #### I BC #### [facility] ([id number]) [address] [place] [address] Monocytes/100 WBC (Bld) 3.8 % Normal [facility] Comment on above: Performed By: #### I BC #### [facility] ([id number]) [address] [place] [address] Neutrophils/100 WBC (Bld) 93.7 % Normal [facility] Comment on above: Performed By: #### I BC #### [facility] ([id number]) [address] [place] [address] Platelet mean volume (Bld) [Entitic vol] 7.3 fL Normal 7-12 [facility] Comment on above: Performed By: #### I BC #### [facility] ([id number]) [address] [place] [address] Platelets (Bld) [#/Vol] 285 10*3/uL Normal 150-450 [facility] Comment on above: Performed By: #### I BC #### [facility] ([id number]) [address] [place] [address] CBC auto differentialon 12-10 Basophils (Bld) [#/Vol] 0 10*3/uL [facility] Eosinophils (Bld) [#/Vol] 0 10*3/uL [facility] Eosinophils/100 WBC (Bld) 0 % [facility] Erythrocyte distribution width (RBC) [Ratio] 20 % High 11.5 - 15.0 % [facility] Interpretation and review of laboratory results Abnormal [facility] Neutrophils (Bld) [#/Vol] 11.2 10*3/uL High [facility] RBC (Bld) [#/Vol] 2.7 10*6/uL Low [facility] WBC corrected for nucl RBC Auto (Bld) [#/Vol] 11.9 High [facility] Crossmatch RBC:Number of Uni ts: 101-02-2024 BB Type Barcode 6200 [facility] Blood component type [id number] [facility] Crossmatch Compatible [facility] Expiration Date [facility] Status of unit TRANSFUSED [facility] Unit ABO A [facility] Unit number [id number] [facility] RH Positive [facility] Ionized magnesiumon 01-02-20 Magnesium Ionized ISE (Bld) [Moles/Vol] 0.8 mmol/L High 0.45 - 0.74 mmol/L [facility] Comment on above: NEW REFERENCE RANGE Magnesium Ionized ISE (Bld) [Moles/Vol] 0.25 mmol/L Critically low 0.45 - 0.74 mmol/L [facility] Comment on above: NEW REFERENCE RANGE MAGNESIUMon 01-02-2024 Magnesium [Mass/Vol] 1.3 mg/dL Low 1.8-2.6 [facility] Comment on above: Performed By: #### I BC #### [facility] ([id number]) [address] [place] [address] Magnesium Ionized ISE (Bld) [Moles/Vol]on 01-02-2024 Interpretation and review of laboratory results Abnormal [facility] Magnesium [Moles/Vol] 0.80 mmol/L High 0.45-0.74 [facility] Comment on above: Result Comment: NEW REFERENCE RANGE Performed By: #### A FAB5 #### [facility] ([id number]) [address] [place] [address] Interpretation and review of laboratory results Abnormal [facility] Magnesium [Moles/Vol] 0.25 mmol/L Critically low 0.45-0.74 [facility] Comment on above: Result Comment: NEW REFERENCE RANGE Performed By: #### I BC #### [facility] ([id number]) [address] [place] [address] No Panel Informationon 01-01 Interpretation and review of laboratory results Abnormal [facility] PHOSPHORUSon 01-02-2024 Phosphate [Mass/Vol] 5.0 mg/dL High 2.4-4.9 [facility] Comment on above: Performed By: #### A FAB5 #### [facility] ([id number]) [address] [place] [address] PROTIME AND INRon 01-02-2024 INR Coag (PPP) [Relative time] 1.1 {INR} Normal 0.8-1.1 [facility] Comment on above: Performed By: #### I BC #### [facility] ([id number]) [address] [place] [address] PT Coag (PPP) [Time] 13.2 s Normal 9.8-13.2 [facility] Comment on above: Performed By: #### I BC #### [facility] ([id number]) [address] [place] [address] Phosphoruson 01-02-2024 Phosphate [Mass/Vol] 5 mg/dL High 2.4 - 4 .9 mg/dL [facility] Protime & INRon 01-02-2024 [facility] BASIC METABOLIC PANLon 12-31 Anion gap [Moles/Vol] 7 mmol/L Normal 5-15 [facility] Comment on above: Performed By: #### I BC #### [facility] ([id number]) [address] [place] [address] Calcium [Mass/Vol] 8.4 mg/dL Low 8.5-10.5 [facility] Comment on above: Performed By: #### I BC #### [facility] ([id number]) [address] [place] [address] Chloride [Moles/Vol] 107 mmol/L Normal 98-109 [facility] Comment on above: Performed By: #### I BC #### [facility] ([id number]) [address] [place] [address] CO2 [Moles/Vol] 22 mmol/L Normal 22-32 [facility] Comment on above: Performed By: #### I BC #### [facility] ([id number]) [address] [place] [address] Creatinine [Mass/Vol] 0.97 mg/dL Normal 0.40-1.00 [facility] Comment on above: Result Comment: METH OD TRACEABLE TO IDMS STANDARD Performed By: #### I BC #### [facility] ([id number]) [address] [place] [address] GFR/1.73 sq M.predicted among non-blacks MDRD (S/P/Bld) [Vol rate/Area] 57 mL/min/{1.73_m2} Low >59 [facility] Comment on above: Result Comment: Reported eGFR is based on the CKD-EPI 2020 equation that does not use a race coefficient. Performed By: #### I BC #### [facility] ([id number]) [address] [place] [address] Glucose [Mass/Vol] 143 mg/dL High 65-99 [facility] Comment on above: Performed By: #### I BC #### [facility] ([id number]) [address] [place] [address] Potassium [Moles/Vol] 4.3 mmol/L Normal 3.5-5.0 [facility] Comment on above: Performed By: #### I BC #### [facility] ([id number]) [address] [place] [address] Sodium [Moles/Vol] 136 mmol/L Normal 134-146 [facility] Comment on above: Performed By: #### I BC #### [facility] ([id number]) [address] [place] [address] Urea nitrogen [Mass/Vol] 22 mg/dL Normal 5-27 [facility] Comment on above: Performed By: #### I BC #### [facility] ([id number]) [address] [place] [address] Basic Metabolic Panelon 11-2 Anion gap [Moles/Vol] 7 mmol/L 5 - 15 mmol/L [facility] Calcium [Mass/Vol] 8.4 mg/dL Low 8.5 - 10. 5 mg/dL [facility] Chloride [Moles/Vol] 107 mmol/L 98 - 10 9 mmol/L [facility] CO2 [Moles/Vol] 22 mmol/L 22 - 32 mmol/L [facility] Creatinine [Mass/Vol] 0.97 mg/dL 0.40 - 1.00 mg/dL [facility] Comment on above: METHOD TRACEABLE TO IDMS STANDARD eGFR (CKD-EPI)non-race dependent 57 Low - PINF [facility] Comment on above: Reported eGFR is based on the CKD-EPI 2020 equation that does not use a race coefficient. Glucose [Mass/Vol] 143 mg/dL High 65 - 99 mg/dL [facility] Interpretation and review of laboratory results Abnormal [facility] Potassium [Moles/Vol] 4.3 mmol/L 3.5 - 5.0 mmol/L [facility] Sodium [Moles/Vol] 136 mmol/L 134 - 146 mmol/L [facility] Urea nitrogen [Mass/Vol] 22 mg/dL 5 - 27 mg/dL [facility] CBC AND AUTO DIFFon 01-01-20 ABSOLUTE BASOPHIL 0.0 X10E9/L Normal 0.0-0.2 [facility] Comment on above: Performed By: #### I BC #### [facility] ([id number]) [address] [place] [address] ABSOLUTE NEUTROPHIL 12.4 X10E9/L High 1.5-6.6 [facility] Comment on above: Performed By: #### I BC #### [facility] ([id number]) [address] [place] [address] Basophils/100 WBC (Bld) 0.3 % Normal [facility] Comment on above: Performed By: #### I BC #### [facility] ([id number]) [address] [place] [address] Eosinophils (Bld) [#/Vol] 0.0 10*3/uL Normal 0.0-0.4 [facility] Comment on above: Performed By: #### I BC #### [facility] ([id number]) [address] [place] [address] Eosinophils/100 WBC (Bld) 0.0 % Normal [facility] Comment on above: Performed By: #### I BC #### [facility] ([id number]) [address] [place] [address] Erythrocyte distribution width (RBC) [Ratio] 19.6 % High 11.5-15.0 [facility] Comment on above: Performed By: #### I BC #### [facility] ([id number]) [address] [place] [address] Hematocrit (Bld) [Volume fraction] 25.8 % Low 35-47 [facility] Comment on above: Performed By: #### I BC #### [facility] ([id number]) [address] [place] [address] Hemoglobin (Bld) [Mass/Vol] 8.9 g/dL Low 11.7-15.5 [facility] Comment on above: Performed By: #### I BC #### [facility] ([id number]) [address] [place] [address] Lymphocytes (Bld) [#/Vol] 0.4 10*3/uL Low 1.0-3.5 [facility] Comment on above: Performed By: #### I BC #### [facility] ([id number]) [address] [place] [address] Lymphocytes/100 WBC (Bld) 3.2 % Normal [facility] Comment on above: Performed By: #### I BC #### [facility] ([id number]) [address] [place] [address] MCH (RBC) [Entitic mass] 32.7 pg Normal 27-34 [facility] Comment on above: Performed By: #### I BC #### [facility] ([id number]) [address] [place] [address] MCHC (RBC) [Mass/Vol] 34.4 g/dL Normal 32-36 [facility] Comment on above: Performed By: #### I BC #### [facility] ([id number]) [address] [place] [address] MCV (RBC) [Entitic vol] 95 fL Normal 80-100 [facility] Comment on above: Performed By: #### I BC #### [facility] ([id number]) [address] [place] [address] Monocytes (Bld) [#/Vol] 0.4 10*3/uL Normal 0-0.9 [facility] Comment on above: Performed By: #### I BC #### [facility] ([id number]) [address] [facility] [place] [address] Monocytes/100 WBC (Bld) 3.3 % Normal [facility] Comment on above: Performed By: #### I BC #### [facility] ([id number]) [address] [facility] [address] Neutrophils/100 WBC (Bld) 93.2 % Normal [facility] Comment on above: Performed By: #### I BC #### [facility] ([id number]) [address] [place] [address] Platelet mean volume (Bld) [Entitic vol] 7.0 fL Normal 7-12 [facility] Comment on above: Performed By: #### I BC #### [facility] ([id number]) [address] [place] [address] Platelets (Bld) [#/Vol] 270 10*3/uL Normal 150-450 [facility] Comment on above: Performed By: #### I BC #### [facility] ([id number]) [address] [place] [address] RBC COUNT 2.72 X10E12/L Low 3.80-5.20 [facility] Comment on above: Performed By: #### I BC #### [facility] ([id number]) [address] [place] [address] WBC (Bld) [#/Vol] 13.3 10*3/uL High 4.0-11.0 [facility] Comment on above: Performed By: #### I BC #### [facility] ([id number]) [address] [facility] [address] CBC auto differentialon 12-10 Basophils (Bld) [#/Vol] 0 10*3/uL [facility] Basophils/100 WBC (Bld) 0.3 % [facility] Eosinophils (Bld) [#/Vol] 0 10*3/uL [facility] Eosinophils/100 WBC (Bld) 0 % [facility] Erythrocyte distribution width (RBC) [Ratio] 19.6 % High 11.5 - 15.0 % [facility] Hematocrit (Bld) [Volume fraction] 25.8 % Low 35 - 47 % [facility] Hemoglobin (Bld) [Mass/Vol] 8.9 g/dL Low 11.7 - 15.5 g/dL [facility] Interpretation and review of laboratory results Abnormal [facility] Lymphocytes (Bld) [#/Vol] 0.4 10*3/uL Low [facility] Lymphocytes/100 WBC (Bld) 3.2 % [facility] MCH (RBC) [Entitic mass] 32.7 pg 27 - 34 pg [facility] MCHC (RBC) [Mass/Vol] 34.4 g/dL 32 - 3 6 g/dL [facility] MCV (RBC) [Entitic vol] 95 fL 80 - 100 fL [facility] Monocytes (Bld) [#/Vol] 0.4 10*3/uL [facility] Monocytes/100 WBC (Bld) 3.3 % [facility] Neutrophils (Bld) [#/Vol] 12.4 10*3/uL High [facility] Neutrophils/100 WBC (Bld) 93.2 % [facility] Platelet mean volume (Bld) [Entitic vol] 7 fL 7 - 12 fL [facility] Platelets (Bld) [#/Vol] 270 10*3/uL [facility] RBC (Bld) [#/Vol] 2.72 10*6/uL Low [facility] WBC corrected for nucl RBC Auto (Bld) [#/Vol] 13.3 High [facility] Lactate (P ibeth) [Moles/Vol]o n 01-01-2024 LACTATE W/REFLEX 0.6 mmol/L Normal 0.4-2.0 [facility] Comment on above: Result Comment: Result did not trigger repeat Lactate, re-order if needed. Performed By: #### I #### [facility] ([id number]) [address] [place] [address] Lactate w/ Reflexon 01-01-20 Lactate (P ibeth) [Moles/Vol] 0.6 mmol/L 0.4 - 2.0 mmol/L [facility] Comment on above: Result did not trigger repeat Lactate, re-order if needed. No Panel Informationon 12-31 [facility] POCT ABG Rapid NA K GLU ICA HHon 01-01-2024 Arterial patency Wrist artery --pre arterial puncture [facility] Base deficit (Bld) [Moles/Vol] 2.6 mmol/L High [facility] Calcium.ionized ISE [Moles/Vol] 5 mg/dL 4.5 - 5.3 mg/dL [facility] CO2 (Bld) [Partial pressure] 39.3 mm[Hg] [facility] Glucose [Mass/Vol] 111 mg/dL High 65 - 99 mg/dL [facility] HCO3 (Bld) [Moles/Vol] 22.7 mmol/L P [facility] Hematocrit (Bld) [Volume fraction] 22 % Low 35 - 47 % [facility] Hemoglobin (Bld) [Mass/Vol] 7.3 g/dL Low 11.7 - 15.5 g/dL [facility] Interpretation and review of laboratory results Abnormal [facility] Oxygen (Bld) [Partial pressure] 195 mm[Hg] High [facility] Oxygen/Inspired gas setting [Volume Fraction] Ventilator 60 % [facility] pH (Bld) 7.37 [pH] 7.350 - 7.450 [facility] Potassium [Moles/Vol] 3.9 mmol/L 3.5 - 5.0 mmol/L [facility] Sodium [Moles/Vol] 140 mmol/L 134 - 146 mmol/L [facility] Specimen site Narrative [facility] Specimen type Nom (Spec) Arterial [facility] PROTIME AND INRon 01-01-2024 INR Coag (PPP) [Relative time] 1.2 {INR} High 0.8-1.1 [facility] Comment on above: Performed By: #### I BC #### [facility] ([id number]) [address] [place] [address] PT Coag (PPP) [Time] 13.7 s High 9.8-13.2 [facility] Comment on above: Performed By: #### I BC #### [facility] ([id number]) [address] [place] [address] Protime & INRon 01-01-2024 INR Coag (PPP) [Relative time] 1.2 {INR} High [facility] Interpretation and review of laboratory results Abnormal [facility] PT Coag (PPP) [Time] 13.[address] [facility] RAPID CARDIAC W/ NAon 2023 AKILAH'S TEST Normal [facility] Comment on above: Performed By: #### I BC #### [facility] ([id number]) [address] [place] [address] BASE,DEFICIT 2.6 MMOL/L High 0.0-2.0 [facility] Comment on above: Performed By: #### I BC #### [facility] ([id number]) [address] [place] [address] Body temperature 98.6 [degF] Normal 37.0 [facility] Comment on above: Performed By: #### I BC #### [facility] ([id number]) [address] [place] [address] Glucose [Mass/Vol] 111 mg/dL High 65-99 [facility] Comment on above: Performed By: #### I BC #### [facility] ([id number]) [address] [place] [address] HCO3 (Bld) [Moles/Vol] 22.7 mmol/L Normal 22-26 P [facility] Comment on above: Performed By: #### I BC #### [facility] ([id number]) [address] [place] [address] Hematocrit (Bld) [Volume fraction] 22 % Low 35-47 [facility] Comment on above: Performed By: #### I BC #### [facility] ([id number]) [address] [place] [address] Hemoglobin (Bld) [Mass/Vol] 7.3 g/dL Low 11.7-15.5 [facility] Comment on above: Performed By: #### I BC #### [facility] ([id number]) [address] [place] [address] INSP. O2 CONC. 60 % Normal [facility] Comment on above: Performed By: #### I BC #### [facility] ([id number]) [address] [place] [address] IONIZED CALCIUM 5.0 mg/dL Normal 4.5-5.3 [facility] Comment on above: Performed By: #### I BC #### [facility] ([id number]) [address] [place] [address] Oxygen (Bld) [Partial pressure] 195 mm[Hg] High 80-100 [facility] Comment on above: Performed By: #### I BC #### [facility] ([id number]) [address] [place] [address] Oxygen saturation in Blood 100.3 % Normal >90 [facility] Comment on above: Performed By: #### I BC #### [facility] ([id number]) [address] [place] [address] PCO2 39.3 MMHG Normal 35-45 [facility] Comment on above: Performed By: #### I BC #### [facility] ([id number]) [address] [place] [address] pH (Bld) 7.370 [pH] Normal 7.350-7.45 0 [facility] Comment on above: Performed By: #### I BC #### [facility] ([id number]) [address] [place] [address] Potassium [Moles/Vol] 3.9 mmol/L Normal 3.5-5.0 [facility] [facility] Comment on above: Performed By: #### I BC #### [facility] ([id number]) [address] [place] [address] SAMPLE SITE SABA Normal [facility] Comment on above: Performed By: #### I BC #### [facility] ([id number]) [address] [place] [address] SAMPLE TYPE Arterial Normal [facility] Comment on above: Performed By: #### I BC #### [facility] ([id number]) [address] [place] [address] Sodium [Moles/Vol] 140 mmol/L Normal 134-146 [facility] Comment on above: Performed By: #### I BC #### [facility] ([id number]) [address] [place] [address] RFA Guidance for vascular ac cess of Vesselon 01-01-2024 Please refer to the vascular OP note for a dictation on this exam. [facility] APTTon 12-31-2023 aPTT Coag (PPP) [Time] 36 s Pr [facility] BASIC METABOLIC PANLon 12-30 Anion gap [Moles/Vol] 13 mmol/L Normal 5-15 [facility] Comment on above: Performed By: #### C BCA, PINR, 21871-1, BMP #### [facility] ([id number]) [address] [place] [address] Calcium [Mass/Vol] 9.9 mg/dL Normal 8.5-10.5 [facility] Comment on above: Performed By: #### C BCA, PINR, 66654-5, BMP #### [facility] ([id number]) [address], [address] [place] [address] Chloride [Moles/Vol] 104 mmol/L Normal 98-109 [facility] Comment on above: Performed By: #### C BCA, PINR, 12264-4, BMP #### [facility] ([id number]) [address], [address] [place] [address] CO2 [Moles/Vol] 22 mmol/L Normal 22-32 [facility] Comment on above: Performed By: #### C BCA, PINR, 43415-5, BMP #### [facility] ([id number]) [address], [address] [place] [address] Creatinine [Mass/Vol] 1.18 mg/dL High 0.40-1.00 [facility] Comment on above: Result Comment: METH OD TRACEABLE TO IDMS STANDARD Performed By: #### C BCA, PINR, 81480-9, BMP #### [facility] ([id number]) [address], [address] [place] [address] GFR/1.73 sq M.predicted among non-blacks MDRD (S/P/Bld) [Vol rate/Area] 45 mL/min/{1.73_m2} Low >59 [facility] Comment on above: Result Comment: Reported eGFR is based on the CKD-EPI 1 equation that does not use a race coefficient. Performed By: #### C BCA, PINR, 11156-5, BMP #### [facility] ([id number]) [address], [address] [place] [address] Glucose [Mass/Vol] 85 mg/dL Normal 65-99 [facility] Comment on above: Performed By: #### C BCA, PINR, 45052-7, BMP #### [facility] ([id number]) [address] [place] [address] Potassium [Moles/Vol] 4.2 mmol/L Normal 3.5-5.0 [facility] Comment on above: Performed By: #### C BCA, PINR, 88367-2, BMP #### [facility] ([id number]) [address] [place] [address] Sodium [Moles/Vol] 139 mmol/L Normal 134-146 [facility] Comment on above: Performed By: #### C BCA, PINR, 86983-1, BMP #### [facility] ([id number]) [address], [address] [place] [address] Urea nitrogen [Mass/Vol] 25 mg/dL Normal 5-27 [facility] Comment on above: Performed By: #### C BCA, PINR, 45885-3, BMP #### [facility] ([id number]) [address], [address] [place] [address] Basic Metabolic Panelon 11-2 Anion gap [Moles/Vol] 13 mmol/L 5 - 15 mmol/L [facility] Calcium [Mass/Vol] 9.9 mg/dL 8.5 - 10. 5 mg/dL [facility] Chloride [Moles/Vol] 104 mmol/L 98 - 10 9 mmol/L [facility] CO2 [Moles/Vol] 22 mmol/L 22 - 32 mmol/L [facility] Creatinine [Mass/Vol] 1.18 mg/dL High 0.40 - 1.00 mg/dL [facility] Comment on above: METHOD TRACEABLE TO IDMS STANDARD eGFR (CKD-EPI)non-race dependent 45 Low - PINF [facility] Comment on above: Reported eGFR is based on the CKD-EPI 2020 equation that does not use a race coefficient. Glucose [Mass/Vol] 85 mg/dL 65 - 99 mg/dL [facility] Interpretation and review of laboratory results Abnormal [facility] Potassium [Moles/Vol] 4.2 mmol/L 3.5 - 5.0 mmol/L [facility] Sodium [Moles/Vol] 139 mmol/L 134 - 146 mmol/L [facility] Urea nitrogen [Mass/Vol] 25 mg/dL 5 - 27 mg/dL [facility] CBC AND AUTO DIFFon 12-31-19 ABSOLUTE BASOPHIL 0.0 X10E9/L Normal 0.0-0.2 [facility] Comment on above: Performed By: #### C LESVIA PINR, 24389-6, BMP #### [facility] ([id number]) [address], [address] [place] [address] ABSOLUTE NEUTROPHIL 5.3 X10E9/L Normal 1.5-6.6 [facility] Comment on above: Performed By: #### C LESVIA PINR, 98825-1, BMP #### [facility] ([id number]) [address], [address] [place] [address] Basophils/100 WBC (Bld) 0.7 % Normal [facility] Comment on above: Performed By: #### Jeny LAKHANI, PINR, 69329-7, BMP #### [facility] ([id number]) [address], [address] [place] [address] Eosinophils (Bld) [#/Vol] 0.1 10*3/uL Normal 0.0-0.4 [facility] Comment on above: Performed By: #### Jeny LAKHANI PINR, 50407-6, BMP #### [facility] ([id number]) [address], [address] [place] [address] Eosinophils/100 WBC (Bld) 0.9 % Normal [facility] Comment on above: Performed By: #### Jeny LAKHANI, PINR, 59794-0, BMP #### [facility] ([id number]) [address], [address] [place] [address] Erythrocyte distribution width (RBC) [Ratio] 16.7 % High 11.5-15.0 [facility] Comment on above: Performed By: #### C ROSA LAKHANI, 00927-6, BMP #### [facility] ([id number]) [address], [address] [place] [address] Hematocrit (Bld) [Volume fraction] 29.8 % Low 35-47 [facility] Comment on above: Performed By: #### C ROSA LAKHANI, 79082-2, BMP #### [facility] ([id number]) [address], [address] [place] [address] Hemoglobin (Bld) [Mass/Vol] 10.3 g/dL Low 11.7-15.5 [facility] Comment on above: Performed By: #### C ROSA LAKHANI, 06512-9, BMP #### [facility] ([id number]) [address] [facility] [address] [place] [address] Lymphocytes (Bld) [#/Vol] 1.3 10*3/uL Normal 1.0-3.5 [facility] Comment on above: Performed By: #### ROSA Fermin BCA, 49933-9, BMP #### [facility] ([id number]) [address], [address] [place] [address] Lymphocytes/100 WBC (Bld) 17.3 % Normal [facility] Comment on above: Performed By: #### ROSA Fermin BCA, 34729-1, BMP #### [facility] ([id number]) [address], [address] [place] [address] MCH (RBC) [Entitic mass] 34.6 pg High 27-34 [facility] Comment on above: Performed By: #### Jeny LAKHANI PINR, 33139-8, BMP #### [facility] ([id number]) [address], [address] [place] [address] MCHC (RBC) [Mass/Vol] 34.5 g/dL Normal 32-36 [facility] Comment on above: Performed By: #### Jeny LAKHANI PINR, 70064-4, BMP #### [facility] ([id number]) [address], [address] [place] [address] MCV (RBC) [Entitic vol] 100 fL Normal 80-100 [facility] Comment on above: Performed By: #### Jeny LAKHANI PINR, 79707-3, BMP #### [facility] ([id number]) [address] [place] [address] Monocytes (Bld) [#/Vol] 0.8 10*3/uL Normal 0-0.9 [facility] Comment on above: Performed By: #### Jeny LAKHANI PINR, 82374-8, BMP #### [facility] ([id number]) [address] [place] [address] Monocytes/100 WBC (Bld) 10.3 % Normal [facility] Comment on above: Performed By: #### Jeny LAKHANI PINR, 81139-6, BMP #### [facility] ([id number]) [address] [place] [address] Neutrophils/100 WBC (Bld) 70.8 % Normal [facility] Comment on above: Performed By: #### Jeny LAKHANI PINR, 34747-7, BMP #### [facility] ([id number]) [address], [address] [place] [address] Platelet mean volume (Bld) [Entitic vol] 7.6 fL Normal 7-12 [facility] Comment on above: Performed By: #### Jeny LAKHANI PINR, 63093-4, BMP #### [facility] ([id number]) [address], [address] [place] [address] Platelets (Bld) [#/Vol] 387 10*3/uL Normal 150-450 [facility] Comment on above: Performed By: #### C LESVIA, PINR, 34269-1, BMP #### [facility] ([id number]) [address], [address] [place] [address] RBC COUNT 2.97 X10E12/L Low 3.80-5.20 [facility] Comment on above: Performed By: #### Jeny LAKHANI, PINR, 09803-0, BMP #### [facility] ([id number]) [address], [address] [place] [address] WBC (Bld) [#/Vol] 7.5 10*3/uL Normal 4.0-11.0 [facility] Comment on above: Performed By: #### Jeny LAKHANI, PINR, 62524-3, BMP #### [facility] ([id number]) [address], [address] [place] [address] CBC auto differentialon 12-10 Basophils (Bld) [#/Vol] 0 10*3/uL [facility] Basophils/100 WBC (Bld) 0.7 % [facility] Eosinophils (Bld) [#/Vol] 0.1 10*3/uL [facility] Eosinophils/100 WBC (Bld) 0.9 % [facility] Erythrocyte distribution width (RBC) [Ratio] 16.7 % High 11.5 - 15.0 % [facility] Hematocrit (Bld) [Volume fraction] 29.8 % Low 35 - 47 % [facility] Hemoglobin (Bld) [Mass/Vol] 10.3 g/dL Low 11.7 - 15.5 g/dL [facility] Interpretation and review of laboratory results Abnormal [facility] Lymphocytes (Bld) [#/Vol] 1.3 10*3/uL [facility] Lymphocytes/100 WBC (Bld) 17.3 % [facility] MCH (RBC) [Entitic mass] 34.6 pg High 27 - 34 pg [facility] MCHC (RBC) [Mass/Vol] 34.5 g/dL 32 - 3 6 g/dL [facility] MCV (RBC) [Entitic vol] 100 fL 80 - 100 fL [facility] Monocytes (Bld) [#/Vol] 0.8 10*3/uL [facility] Monocytes/100 WBC (Bld) 10.3 % [facility] Neutrophils (Bld) [#/Vol] 5.3 10*3/uL [facility] Neutrophils/100 WBC (Bld) 70.8 % [facility] Platelet mean volume (Bld) [Entitic vol] 7.6 fL 7 - 12 fL [facility] Platelets (Bld) [#/Vol] 387 10*3/uL [facility] RBC (Bld) [#/Vol] 2.97 10*6/uL Low [facility] WBC corrected for nucl RBC Auto (Bld) [#/Vol] 7.5 [facility] No Panel Informationon 12-30 [facility] PROTIME AND INRon 12-31-2023 INR Coag (PPP) [Relative time] 1.1 {INR} Normal 0.8-1.1 [facility] Comment on above: Performed By: #### ROSA Fermin BCA, 63088-8, BMP #### [facility] ([id number]) [address], [address] [place] [address] PT Coag (PPP) [Time] 12.5 s Normal 9.8-13.2 [facility] Comment on above: Performed By: #### ROSA Fermin BCA, 92115-6, BMP #### [facility] ([id number]) [address], [address] [place] [address] Protime-INRon 12-31-2023 INR Coag (PPP) [Relative time] 1.1 {INR} [facility] PT Coag (PPP) [Time] 12.5 s [facility] Type and screen(includes ind irect chi)on 12-31-2023 ABO A [facility] Rh Nom (Bld) Positive [facility] URINALYSISon 12-31-2023 Bilirubin Ql (U) Negative Normal NEG [facility] Comment on above: Performed By: #### U A #### [facility] ([id number]) [address] [place] [address] BLOOD/HGB Negative Normal NEG [facility] Comment on above: Performed By: #### U A #### [facility] ([id number]) [address], [address] [place] [address] Color (U) YELLOW Normal YELLOW [facility] Comment on above: Performed By: #### U A #### [facility] ([id number]) [address], [address] [place] [address] Glucose Ql (U) Negative Normal NEG [facility] Comment on above: Performed By: #### U A #### [facility] ([id number]) [address], [address] [place] [address] Ketones Ql (U) Negative Normal NEG [facility] Comment on above: Performed By: #### U A #### [facility] ([id number]) [address] [place] [address] Leukocyte esterase Test strip Ql (U) MODERATE Abnormal NEG [facility] Comment on above: Performed By: #### U A #### [facility] ([id number]) [address], [address] [place] [address] MUCOUS PRESENT Abnormal NONE [facility] Comment on above: Performed By: #### U A #### [facility] ([id number]) [address] [place] [address] Nitrite Ql (U) Positive Abnormal NEG [facility] Comment on above: Performed By: #### U A #### [facility] ([id number]) [address] [place] [address] pH (U) 6.0 [pH] Normal 5.0-8.5 [facility] Comment on above: Performed By: #### U A #### [facility] ([id number]) [address], [address] [place] [address] Protein Ql (U) Negative Normal NEG [facility] Comment on above: Performed By: #### U A #### [facility] ([id number]) [address], [address] [place] [address] R.B.CELLS <1 Normal 0-5 [facility] Comment on above: Performed By: #### U A #### [facility] ([id number]) [address] [facility], [address] [place] [address] Specific gravity (U) [Rel density] 1.016 Normal 1.003-1.03 5 [facility] Comment on above: Performed By: #### U A #### [facility] ([id number]) [address] [facility], [address] [place] [address] SQUAMOUS EPITHELIUM 1 /hpf Normal 0-5 [facility] Comment on above: Performed By: #### U A #### [facility] ([id number]) [address], [address] [place] [address] TURBIDITY CLEAR Normal CLEAR [facility] Comment on above: Performed By: #### U A #### [facility] ([id number]) [address], [address] [place] [address] Urobilinogen (U) [Mass/Vol] mg/dL Normal <1.1 [facility] Comment on above: Performed By: #### U A #### [facility] ([id number]) [address], [address] [place] [address] W.B.CELLS 30 /hpf High 0-5 [facility] Comment on above: Performed By: #### U A #### [facility] ([id number]) [address], [address] [place] [address] Urinalysison 12-31-2023 Bilirubin Ql (U) Negative Negative^N egative [facility] Color (U) YELLOW YELLOW^YEL LOW [facility] Epithelial cells Auto (Urine sed) [#/Area] 1 [facility] Glucose (U) [Mass/Vol] Negative Negat jamar^N egative mg/dL [facility] Hemoglobin Auto test strip Ql (U) Negative Negative^N egative [facility] Interpretation and review of laboratory results Abnormal [facility] Ketones (U) [Mass/Vol] Negative Negat jamar^N egative mg/dL [facility] Leukocyte esterase Auto test strip Ql (U) MODERATE Abnormal Negative^N egative [facility] Mucus Ql (Urine sed) PRESENT Abnormal NONE^NONE [facility] Nitrite Auto test strip Ql (U) Positive Abnormal Negative^N egative [facility] pH (U) 6 [pH] 5.0 - 8.5 [facility] Protein (U) [Mass/Vol] Negative Negat jamar^N egative mg/dL [facility] RBC Auto (Urine sed) [#/Area] [facility] Specific gravity Refractometry automated (U) [Rel density] 1.016 1.003 - 1.035 [facility] Turbidity Ql (U) CLEAR CLEAR^EMMETT R [facility] Urobilinogen Qn (U) NINF [facility] WBC Auto (Urine sed) [#/Area] 30 High [facility] aPTT Coag (PPP) [Time]on aPTT Coag (Bld) [Time] 36 s Normal 26-37 Pr [facility] Comment on above: Performed By: #### C LESVIA, PINR, 73215-4, BMP #### [facility] ([id number]) [address], [address] [place] [address] BASIC METABOLIC PANLon 12-21 Anion gap [Moles/Vol] 8 mmol/L Normal 5-15 [facility] Comment on above: Performed By: #### P INR, 26004-8 #### [facility] ([id number]) [address] [place] [address] #### BMP, CBC #### [facility] ([id number]) [address] [place] [address] Calcium [Mass/Vol] 9.5 mg/dL Normal 8.5-10.5 [facility] Comment on above: Performed By: #### P INR, 13690-5 #### [facility] ([id number]) [address] [place] [address] #### BMP, CBC #### [facility] ([id number]) [address] [place] [address] Chloride [Moles/Vol] 108 mmol/L Normal 98-109 [facility] Comment on above: Performed By: #### P INR, 24109-0 #### [facility] ([id number]) [address] [place] [address] #### BMP, CBC #### [facility] ([id number]) [address] [place] [address] CO2 [Moles/Vol] 24 mmol/L Normal 22-32 [facility] Comment on above: Performed By: #### P INR, 96837-4 #### [facility] ([id number]) [address] [place] [address] #### BMP, CBC #### [facility] ([id number]) [address] [place] [address] Creatinine [Mass/Vol] 1.26 mg/dL High 0.40-1.00 [facility] Comment on above: Result Comment: METH OD TRACEABLE TO IDMS STANDARD Performed By: #### P INR, 59313-3 #### [facility] ([id number]) [address] [place] [address] #### BMP, CBC #### [facility] ([id number]) [address] [place] [address] GFR/1.73 sq M.predicted among non-blacks MDRD (S/P/Bld) [Vol rate/Area] 41 mL/min/{1.73_m2} Low >59 [facility] Comment on above: Result Comment: Reported eGFR is based on the CKD-EPI 2020 equation that does not use a race coefficient. Performed By: #### P INR, 28805-9 #### [facility] ([id number]) [address] [place] [address] #### BMP, CBC #### [facility] ([id number]) [address] [place] [address] Glucose [Mass/Vol] 96 mg/dL Normal 65-99 [facility] Comment on above: Performed By: #### P INR, 86956-5 #### [facility] ([id number]) [address] [place] [address] #### BMP, CBC #### [facility] ([id number]) [address] [place] [address] Potassium [Moles/Vol] 4.9 mmol/L Normal 3.5-5.0 [facility] Comment on above: Performed By: #### P INR, 86483-5 #### [facility] ([id number]) [address] [place] [address] #### BMP, CBC #### [facility] ([id number]) [address] [place] [address] Sodium [Moles/Vol] 140 mmol/L Normal 134-146 [facility] Comment on above: Performed By: #### P INR, 01191-0 #### [facility] ([id number]) [address] [place] [address] #### BMP, CBC #### [facility] ([id number]) [address] [place] [address] Urea nitrogen [Mass/Vol] 28 mg/dL High 5-27 [facility] Comment on above: Performed By: #### P INR, 00613-9 #### [facility] ([id number]) [address] [place] [address] #### BMP, CBC #### [facility] ([id number]) [address] [place] [address] COMPLETE BLOOD COUNTon 12-21 Erythrocyte distribution width (RBC) [Ratio] 16.8 % High 11.5-15.0 [facility] Comment on above: Performed By: #### P INR, 82684-4 #### [facility] ([id number]) [address] [place] [address] #### BMP, CBC #### [facility] ([id number]) [address] [place] [address] Hematocrit (Bld) [Volume fraction] 27.2 % Low 35-47 [facility] Comment on above: Performed By: #### P INR, 92156-2 #### [facility] ([id number]) [address] [place] [address] #### BMP, CBC #### [facility] ([id number]) [address] [place] [address] Hemoglobin (Bld) [Mass/Vol] 9.3 g/dL Low 11.7-15.5 [facility] Comment on above: Performed By: #### P INR, 11820-6 #### [facility] ([id number]) [address] [place] [address] #### BMP, CBC #### [facility] ([id number]) [address] [facility], [address] [place] [address] MCH (RBC) [Entitic mass] 34.7 pg High 27-34 [facility] Comment on above: Performed By: #### P INR, 61107-0 #### [facility] ([id number]) [address] [place] [address] #### BMP, CBC #### [facility] ([id number]) [address] [facility], [address] [place] [address] MCHC (RBC) [Mass/Vol] 34.1 g/dL Normal 32-36 [facility] Comment on above: Performed By: #### P INR, 57807-6 #### [facility] ([id number]) [address] [place] [address] #### BMP, CBC #### [facility] ([id number]) [address] [facility], [address] [place] [address] MCV (RBC) [Entitic vol] 102 fL High 80-100 [facility] Comment on above: Performed By: #### P INR, 70057-6 #### [facility] ([id number]) [address] [place] [address] #### BMP, CBC #### [facility] ([id number]) [address] [facility], [address] [place] [address] Platelet mean volume (Bld) [Entitic vol] 8.2 fL Normal 7-12 [facility] Comment on above: Performed By: #### P INR, 44736-2 #### [facility] ([id number]) [address] [place] [address] #### BMP, CBC #### [facility] ([id number]) [address] [facility] [address] [place] [address] Platelets (Bld) [#/Vol] 288 10*3/uL Normal 150-450 [facility] Comment on above: Performed By: #### P INR, 60509-6 #### [facility] ([id number]) [address] [place] [address] #### BMP, CBC #### [facility] ([id number]) [address] [place] [address] [address] [place] [address] RBC COUNT 2.67 X10E12/L Low 3.80-5.20 [facility] Comment on above: Performed By: #### P INR, 23131-2 #### [facility] ([id number]) [address] [place] [address] #### BMP, CBC #### [facility] ([id number]) [address] [place] [address] [address] [place] [address] WBC (Bld) [#/Vol] 8.7 10*3/uL Normal 4.0-11.0 [facility] Comment on above: Performed By: #### P INR, 60616-0 #### [facility] ([id number]) [address] [place] [address] #### BMP, CBC #### [facility] ([id number]) [address] [place] [address] [address] [place] [address] PROTIME AND INRon 12-22-2023 INR Coag (PPP) [Relative time] 1.0 {INR} Normal 0.8-1.1 [facility] Comment on above: Performed By: #### P INR, 09484-5 #### [facility] ([id number]) [address] [place] [address] #### BMP, CBC #### [facility] ([id number]) [address], [address] [place] [address] PT Coag (PPP) [Time] 12.0 s Normal 9.8-13.2 [facility] Comment on above: Result Comment: NEW REFERENCE RANGE Performed By: #### P INR, 78714-7 #### [facility] ([id number]) [address] [place] [address] #### BMP, CBC #### [facility] ([id number]) [address], [address] [place] [address] aPTT Coag (PPP) [Time]on aPTT Coag (Bld) [Time] 28 s Normal 26-37 Pr [facility] Comment on above: Result Comment: NEW REFERENCE RANGE Performed By: #### P INR, 30499-4 #### [facility] ([id number]) [address] [place] [address] #### BMP, CBC #### [facility] ([id number]) [address], [address] [place] [address] XR Hip - left 3 Viewson 12-09 [...] Unremarkable left total hip arthroplasty. Sunny Ingram [employer] [facility] ([facility] XR Hip - left 3 ViewsOrdered By: Mi Licea on 12-21-2023 Mash[employer] e Work Phone: 36on 12-16-2023 36 Spoke with patient's daughter Joanna. She said Delicia's BP is still all over the place. She's trying to get her mother to take her meds at the same time everyday, but this doesn't always happen. Bystolic 10mg daily was sent into [facility] on 12/01 so she will double the 5mg tablets for now. I asked her to make sure her mother is checking BP/HR 2 hours after medications. I told her I'd call back in 2 weeks or so to check on her numbers. She verbalized understanding. Normal [facility] XR Hip - left 3 Viewson 11-0 Radiology Study observation (narrative) [facility] 36on 11-30-2023 36 Please have her increase [...] just monitor with routine ECHOs. Thanks! Normal [facility] BASIC METABOLIC PANLon 11-18 Anion gap [Moles/Vol] 9 mmol/L Normal 5-[address] [facility] Comment on above: Performed By: #### C BC, BMP #### [facility] ([id number]) [address], [address] [place] [address] Calcium [Mass/Vol] 9.3 mg/dL Normal 8.5-10.5 [facility] Comment on above: Performed By: #### C BC, BMP #### [facility] ([id number]) [address], [address] [place] [address] Chloride [Moles/Vol] 106 mmol/L Normal 98-109 [facility] Comment on above: Performed By: #### C BC, BMP #### [facility] ([id number]) [address], [address] [place] [address] CO2 [Moles/Vol] 22 mmol/L Normal 22-32 [facility] Comment on above: Performed By: #### C BC, BMP #### [facility] ([id number]) [address], [address] [place] [address] Creatinine [Mass/Vol] 1.14 mg/dL High 0.40-1.00 [facility] Comment on above: Result Comment: METH OD TRACEABLE TO IDMS STANDARD Performed By: #### C TANYA, BMP #### [facility] ([id number]) [address], [address] [place] [address] GFR/1.73 sq M.predicted among non-blacks MDRD (S/P/Bld) [Vol rate/Area] 47 mL/min/{1.73_m2} Low >59 [facility] Comment on above: Result Comment: Reported eGFR is based on the CKD-EPI 2020 equation that does not use a race coefficient. Performed By: #### C TANYA, BMP #### [facility] ([id number]) [address], [address] [place] [address] Glucose [Mass/Vol] 125 mg/dL High 65-99 [facility] Comment on above: Performed By: #### C TANYA, BMP #### [facility] ([id number]) [address] [address] [place] [address] Potassium [Moles/Vol] 5.7 mmol/L High 3.5-5.0 [facility] Comment on above: Performed By: #### C TANYA, BMP #### [facility] ([id number]) [address], [address] [place] [address] Sodium [Moles/Vol] 137 mmol/L Normal 134-146 [facility] Comment on above: Performed By: #### C TANYA, BMP #### [facility] ([id number]) [address] [address] [place] [address] Urea nitrogen [Mass/Vol] 32 mg/dL High 5-27 [facility] Comment on above: Performed By: #### C TANYA, BMP #### [facility] ([id number]) [address] [place] [address] COMPLETE BLOOD COUNTon 11-18 Erythrocyte distribution width (RBC) [Ratio] 15.0 % Normal 11.5-15.0 [facility] Comment on above: Performed By: #### C TANYA, BMP #### [facility] ([id number]) [address], [address] [place] [address] Hematocrit (Bld) [Volume fraction] 33.0 % Low 35-47 [facility] Comment on above: Performed By: #### C TANYA, BMP #### [facility] ([id number]) [address] [place] [address] Hemoglobin (Bld) [Mass/Vol] 11.6 g/dL Low 11.7-15.5 [facility] Comment on above: Performed By: #### C TANYA, BMP #### [facility] ([id number]) [address], [address] [place] [address] MCH (RBC) [Entitic mass] 34.4 pg High 27-34 [facility] Comment on above: Performed By: #### C TANYA, BMP #### [facility] ([id number]) [address], [address] [place] [address] MCHC (RBC) [Mass/Vol] 35.1 g/dL Normal 32-36 [facility] Comment on above: Performed By: #### C TANYA, BMP #### [facility] ([id number]) [address], [address] [place] [address] MCV (RBC) [Entitic vol] 98 fL Normal 80-100 [facility] Comment on above: Performed By: #### C TANYA, BMP #### [facility] ([id number]) [address], [address] [place] [address] Platelet mean volume (Bld) [Entitic vol] 8.4 fL Normal 7-12 [facility] Comment on above: Performed By: #### C BC, BMP #### [facility] ([id number]) [address], [address] [place] [address] Platelets (Bld) [#/Vol] 227 10*3/uL Normal 150-450 [facility] Comment on above: Performed By: #### C BC, BMP #### [facility] ([id number]) [address], [address] [place] [address] RBC COUNT 3.36 X10E12/L Low 3.80-5.20 [facility] Comment on above: Performed By: #### C BC, BMP #### [facility] ([id number]) [address], [address] [place] [address] WBC (Bld) [#/Vol] 6.1 10*3/uL Normal 4.0-11.0 [facility] Comment on above: Performed By: #### C BC, BMP #### [facility] ([id number]) [address] [place] [address] POC BUN CREATon 11-18-2023 Creatinine [Mass/Vol] 1.3 mg/dL High 0.4-1.0 [facility] Comment on above: Result Comment: METH OD TRACEABLE TO IDMS STANDARD Performed By: #### I BC #### [facility] ([id number]) [address] [place] [address] GFR/1.73 sq M.predicted among non-blacks MDRD (S/P/Bld) [Vol rate/Area] 40 mL/min/{1.73_m2} Low >59 [facility] Comment on above: Result Comment: Reported eGFR is based on the CKD-EPI 2020 equation that does not use a race coefficient. Performed By: #### I BC #### [facility] ([id number]) [address] [place] [address] Urea nitrogen [Mass/Vol] 32 mg/dL High 6-27 [facility] Comment on above: Performed By: #### I BC #### [facility] ([id number]) [address] [facility] [place] [address] RAPID CARDIACon 11-18-2023 AKILAH'S TEST Normal [facility] Comment on above: Performed By: #### A FAB5 #### [facility] ([id number]) [address] [place] [address] BASE,DEFICIT 1.2 MMOL/L Normal 0.0-2.0 [facility] Comment on above: Performed By: #### A FAB5 #### [facility] ([id number]) [address] [facility] [place] [address] Body temperature 98.6 [degF] Normal 37.0 [facility] Comment on above: Performed By: #### A FAB5 #### [facility] ([id number]) [address] [place] [address] Glucose [Mass/Vol] 96 mg/dL Normal 65-99 [facility] Comment on above: Performed By: #### A FAB5 #### [facility] ([id number]) [address] [place] [address] HCO3 (Bld) [Moles/Vol] 23.5 mmol/L Normal 22-26 [facility] Comment on above: Performed By: #### A FAB5 #### [facility] ([id number]) [address] [facility] [place] [address] Hematocrit (Bld) [Volume fraction] 31 % Low 35-47 [facility] Comment on above: Performed By: #### A FAB5 #### [facility] ([id number]) [address] [facility] [address] Hemoglobin (Bld) [Mass/Vol] 10.2 g/dL Low 11.7-15.5 [facility] Comment on above: Performed By: #### A FAB5 #### [facility] ([id number]) [address] [place] [address] INSP. O2 CONC. 100 % Normal [facility] Comment on above: Performed By: #### A FAB5 #### [facility] ([id number]) [address] [place] [address] IONIZED CALCIUM 5.2 mg/dL Normal 4.5-5.3 [facility] Comment on above: Performed By: #### A FAB5 #### [facility] ([id number]) [address] [place] [address] Oxygen (Bld) [Partial pressure] 270 mm[Hg] High 80-100 [facility] Comment on above: Performed By: #### A FAB5 #### [facility] ([id number]) [address] [place] [address] Oxygen saturation in Blood 100.2 % Normal >90 [facility] Comment on above: Performed By: #### A FAB5 #### [facility] ([id number]) [address] [place] [address] PCO2 37.2 MMHG Normal 35-45 [facility] Comment on above: Performed By: #### A FAB5 #### [facility] ([id number]) [address] [place] [address] pH (Bld) 7.408 [pH] Normal 7.350-7.45 0 [facility] Comment on above: Performed By: #### A FAB5 #### [facility] ([id number]) [address] [place] [address] Potassium [Moles/Vol] 4.3 mmol/L Normal 3.5-5.0 [facility] Comment on above: Performed By: #### A FAB5 #### [facility] ([id number]) [address] [place] [address] SAMPLE SITE SABA Normal [facility] Comment on above: Performed By: #### A FAB5 #### [facility] ([id number]) [address] [place] [address] SAMPLE TYPE Arterial Normal [facility] Comment on above: Performed By: #### A FAB5 #### [facility] ([id number]) [address] [place] [address] Office Visiton 11-09-2023 Follow-up visit [id number] Delicia Hsu 1935 [facility] 11/09/2023 KYREE PANTOJA ROSA ISELA Hunt Family History Problem Relation Age of Onset Aneurysm Mother Heart attack Father Family Status - Relation Status Age at Mother Father Level of Service:87861 IA OFFICE/OUTPATIENT ESTABLISHED MOD MDM 30 MIN Reason for Visit and Comments: Pre-op Exam [815384] Hypertension [173938] Coronary Artery Disease [187] Normal [facility] Telephoneon 11-09-2023 Telephone [id number] Delicia Hsu 1935 [facility] 11/09/2023 NATALIYA ERNST ROSA ISELA Hutn Family History Problem Relation Age of Onset Aneurysm Mother Heart attack Father Family Status - Relation Status Age at Mother Father Normal [facility] POC BUN CREATon 11-05-2023 Creatinine [Mass/Vol] 1.6 mg/dL High 0.4-1.0 [facility] Comment on above: Result Comment: METH OD TRACEABLE TO IDMS STANDARD Performed By: #### I BC #### [facility] ([id number]) [address] [place] [address] GFR/1.73 sq M.predicted among non-blacks MDRD (S/P/Bld) [Vol rate/Area] 31 mL/min/{1.73_m2} Low >59 [facility] Comment on above: Result Comment: Reported eGFR is based on the CKD-EPI 2020 equation that does not use a race coefficient. Performed By: #### I BC #### [facility] ([id number]) [address] [place] [address] Urea nitrogen [Mass/Vol] 25 mg/dL Normal 6-27 [facility] Comment on above: Performed By: #### I BC #### [facility] ([id number]) [address] [place] [address] BASIC METABOLIC PANLon 10-26 Anion gap [Moles/Vol] 11 mmol/L Normal 5-15 [facility] Comment on above: Performed By: #### C BCA, BMP #### [facility] ([id number]) [address] [facility] [place] [address] #### PINDoug, [id number] #### [facility] ([id number]) [address] [place] [address] Calcium [Mass/Vol] 9.9 mg/dL Normal 8.5-10.5 [facility] Comment on above: Performed By: #### C BCA, BMP #### [facility] ([id number]) [address] [facility] [place] [address] #### PINR, [id number] #### [facility] ([id number]) [address] [place] [address] Chloride [Moles/Vol] 103 mmol/L Normal 98-109 [facility] Comment on above: Performed By: #### C BCA, BMP #### [facility] ([id number]) [address] [place] [address] #### PINR, [id number] #### [facility] ([id number]) [address] [place] [address] CO2 [Moles/Vol] 27 mmol/L Normal 22-32 [facility] Comment on above: Performed By: #### C BCA, BMP #### [facility] ([id number]) [address] [address] #### ROSA, [id number] #### [facility] ([id number]) [address] [place] [address] Creatinine [Mass/Vol] 1.15 mg/dL High 0.40-1.00 [facility] Comment on above: Result Comment: METH OD TRACEABLE TO IDMS STANDARD Performed By: #### C LESVIA, BMP #### [facility] ([id number]) [address] [address] #### ROSA [id number] #### [facility] ([id number]) [address] [place] [address] GFR/1.73 sq M.predicted among non-blacks MDRD (S/P/Bld) [Vol rate/Area] 46 mL/min/{1.73_m2} Low >59 [facility] Comment on above: Result Comment: Reported eGFR is based on the CKD-EPI 2020 equation that does not use a race coefficient. Performed By: #### C BCA, BMP #### [facility] ([id number]) [address] [address] #### ROSA, 48921-4 #### [facility] ([id number]) [address] [place] [address] Glucose [Mass/Vol] 70 mg/dL Normal 65-99 [facility] Comment on above: Performed By: #### C BCA, BMP #### [facility] ([id number]) [address] [address] #### PINDoug, [id number] #### [facility] ([id number]) [address] [place] [address] Potassium [Moles/Vol] 4.1 mmol/L Normal 3.5-5.0 [facility] Comment on above: Performed By: #### C BCA, BMP #### [facility] ([id number]) [address] [facility], [address] [place] [address] #### ROSA, 39543-4 #### [facility] ([id number]) [address] [place] [address] Sodium [Moles/Vol] 141 mmol/L Normal 134-146 [facility] Comment on above: Performed By: #### C BCA, BMP #### [facility] ([id number]) [address] [place] [address], [facility] [address] [place] [address] #### PINR, [id number] #### [facility] ([id number]) [address] [place] [address] Urea nitrogen [Mass/Vol] 24 mg/dL Normal 5-27 [facility] Comment on above: Performed By: #### C BCA, BMP #### [facility] ([id number]) [address] [facility] [place] [address] #### PINR, [id number] #### [facility] ([id number]) [address] [place] [address] CBC AND AUTO DIFFon 10-27-19 24 ABSOLUTE BASOPHIL 0.0 X10E9/L Normal 0.0-0.2 [facility] Comment on above: Performed By: #### C BCA, BMP #### [facility] ([id number]) [address] [facility], [address] [place] [address] #### PINR, [id number] #### [facility] ([id number]) [address] [place] [address] ABSOLUTE NEUTROPHIL 5.5 X10E9/L Normal 1.5-6.6 [facility] Comment on above: Performed By: #### C BCA, BMP #### [facility] ([id number]) [address] [place] [address] #### PINR, [id number] #### [facility] ([id number]) [address] [place] [address] Basophils/100 WBC (Bld) 0.4 % Normal [facility] Comment on above: Performed By: #### C BCA, BMP #### [facility] ([id number]) [address] [place] [address] #### PINR, [id number] #### [facility] ([id number]) [address] [place] [address] Eosinophils (Bld) [#/Vol] 0.0 10*3/uL Normal 0.0-0.4 [facility] Comment on above: Performed By: #### C BCA, BMP #### [facility] ([id number]) [address] [place] [address] #### PINR, [id number] #### [facility] ([id number]) [address] [place] [address] Eosinophils/100 WBC (Bld) 0.6 % Normal [facility] Comment on above: Performed By: #### C BCA, BMP #### [facility] ([id number]) [address] [place] [address] #### PINR, [id number] #### [facility] ([id number]) [address] [place] [address] Erythrocyte distribution width (RBC) [Ratio] 14.7 % Normal 11.5-15.0 [facility] Comment on above: Performed By: #### C BCA, BMP #### [facility] ([id number]) [address] [place] [address], [facility] [address] [place] [address] #### PINR, [id number] #### [facility] ([id number]) [address] [place] [address] Hematocrit (Bld) [Volume fraction] 35.1 % Normal 35-47 [facility] Comment on above: Performed By: #### C BCA, BMP #### [facility] ([id number]) [address] [place] [address], [facility] [address] [place] [address] #### PINR, [id number] #### [facility] ([id number]) [address] [place] [address] Hemoglobin (Bld) [Mass/Vol] 11.7 g/dL Normal 11.7-15.5 [facility] Comment on above: Performed By: #### C BCA, BMP #### [facility] ([id number]) [address] [place] [address] #### PINR, [id number] #### [facility] ([id number]) [address] [place] [address] Lymphocytes (Bld) [#/Vol] 1.1 10*3/uL Normal 1.0-3.5 [facility] Comment on above: Performed By: #### C BCA, BMP #### [facility] ([id number]) [address] [place] [address], [facility] [address] [place] [address] #### PINR, [id number] #### [facility] ([id number]) [address] [place] [address] Lymphocytes/100 WBC (Bld) 14.7 % Normal [facility] Comment on above: Performed By: #### C BCA, BMP #### [facility] ([id number]) [address] [place] [address] [address] [place] [address] #### PINR, [id number] #### [facility] ([id number]) [address] [place] [address] MCH (RBC) [Entitic mass] 32.5 pg Normal 27-34 [facility] Comment on above: Performed By: #### C LESVIA, BMP #### [facility] ([id number]) [address] [facility] [place] [address] #### ROSA, 67474-7 #### [facility] ([id number]) [address] [place] [address] MCHC (RBC) [Mass/Vol] 33.3 g/dL Normal 32-36 [facility] Comment on above: Performed By: #### Jeny LAKHANI, BMP #### [facility] ([id number]) [address] [facility] [place] [address] #### ROSA, 85992-6 #### [facility] ([id number]) [address] [place] [address] MCV (RBC) [Entitic vol] 98 fL Normal 80-100 [facility] Comment on above: Performed By: #### Jeny LAKHANI, BMP #### [facility] ([id number]) [address] [facility] [place] [address] #### ROSA, 86163-7 #### [facility] ([id number]) [address] [place] [address] Monocytes (Bld) [#/Vol] 1.1 10*3/uL High 0-0.9 [facility] Comment on above: Performed By: #### Jeny LAKHANI, BMP #### [facility] ([id number]) [address] [facility] [place] [address] #### ROSA, 60786-6 #### [facility] ([id number]) [address] [place] [id number] Monocytes/100 WBC (Bld) 13.8 % Normal [facility] Comment on above: Performed By: #### Jeny BCA, BMP #### [facility] ([id number]) [address] [facility], [address] [place] [id number] #### PINR, [id number] #### [facility] ([id number]) [address] [place] [id number] Neutrophils/100 WBC (Bld) 70.5 % Normal [facility] Comment on above: Performed By: #### Jeny LAKHANI, BMP #### [facility] ([id number]) [address] [facility], [address] [place] [id number] #### PINR, [id number] #### [facility] ([id number]) [address] [place] [id number] Platelet mean volume (Bld) [Entitic vol] 7.6 fL Normal 7-12 [facility] Comment on above: Performed By: #### Jeny LAKHANI, BMP #### [facility] ([id number]) 0 [facility], [address] [address] #### PINR, [id number] #### [facility] ([id number]) [address] [place] [address] Platelets (Bld) [#/Vol] 321 10*3/uL Normal 150-450 [facility] Comment on above: Performed By: #### Jeny LAKHANI, BMP #### [facility] ([id number]) [address] [address] #### PINR, [id number] #### [facility] ([id number]) [address] [place] [address] RBC COUNT 3.59 X10E12/L Low 3.80-5.20 [facility] Comment on above: Performed By: #### C BCA, BMP #### [facility] ([id number]) [address] [place] [address], [address] [place] [address] #### PINR, [id number] #### [facility] ([id number]) [address] [place] [address] WBC (Bld) [#/Vol] 7.8 10*3/uL Normal 4.0-11.0 [facility] Comment on above: Performed By: #### C BCA, BMP #### [facility] ([id number]) [address] [place] [address], [address] [place] [address] #### PINR, [id number] #### [facility] ([id number]) [address] [place] [address] PROTIME AND INRon 10-27-2023 INR Coag (PPP) [Relative time] 1.1 {INR} Normal 0.8-1.1 [facility] Comment on above: Performed By: #### C BCA, BMP #### [facility] ([id number]) [address] [place] [address], [address] [address] #### PINR, [id number] #### [facility] ([id number]) [address] [place] [address] PT Coag (PPP) [Time] 12.3 s Normal 9.8-13.2 [facility] Comment on above: Result Comment: NEW REFERENCE RANGE Performed By: #### C BCA, BMP #### [facility] ([id number]) [address] [place] [address], [address] [place] [address] #### PINR, [id number] #### [facility] ([id number]) [address] [place] [address] aPTT Coag (PPP) [Time]on aPTT Coag (Bld) [Time] 36 s Normal 26-37 [facility] Comment on above: Result Comment: NEW REFERENCE RANGE Performed By: #### C BCA, BMP #### [facility] ([id number]) [address] [facility], [address] [place] [address] #### PINR, [id number] #### [facility] ([id number]) [address] [facility] [address], [place] [address] Lab Reportson 07-27-2023 Lab Reports [id number]#1.00TI FF Normal [facility] Reports [id number]#1.00TI FF Normal [facility] CT abdomen pelvis w conon CT abdomen pelvis w con [facility] Main [address] [address] [address] Scan Report Signed Patient: Delicia Hsu MR#: [id number] 4 : 1935 Acct:[id number] Age/Sex: 87 / F ADM Date: 05/28/23 Loc: CT Room: Type: [facility] Attending Dr: Monie Wallace DO Copies to: [...] Yen Jr., KranthiORylee05/28/2023 1:34 PM Dictation Location: [place] [address] Transcribed By: [facility] 05/28/23 1334 Dictated By: Jm Yen Jr, DO 05/28/23 1331 Signed By: 05/28/23 1334 Normal [facility] Creatinineon 05-28-2023 GFR/1.73 sq M.predicted MDRD (S/P/Bld) [Vol rate/Area] 50.587 mL/min/{1.73_m2} Normal [facility] Comment on above: Order Comment: STAT FOR CT Result Comment: PERF ORMED BY: [place] [address] PATHOLOGIST HOSPICE BEREAVEMENT COORDINATOR TIEN VELASQUEZ M.D. Performed By: #### C GA BUN #### [facility] [address] [place] [address] Creatinine [Mass/volume] in Serum or PlasmaOrdered By: Monie Wallace on 05-28-2023 Creatinine [Mass/Vol] 1.07 mg/dL Normal 0.60-1.[address] [facility] Comment on above: Order Comment: STAT FOR CT Performed By: #### C GA BUN #### [facility] [address] [place] [address] No Panel InformationOrdered By: Monie Wallace on 05-28-2023 Estimated GFR (CKD-EPI) 50.587 mL/Min [facility] Creatinine Clearance (Chem N/A [facility] Urea nitrogen [Mass/volume] in Serum or PlasmaOrdered By: Monie Wallace on 05-28-2023 Urea nitrogen [Mass/Vol] 16 mg/dL Normal 7-25 [facility] Comment on above: Order Comment: STAT FOR CT Performed By: #### C REAT, BUN #### [facility] [address] No Panel InformationOrdered By: Gypsy Mcmahon on 05-25-2023 E coli Shiga Toxin EIA [facility] Salmonella/Shigella Screen [facility] IgA [Mass/volume] in Serum o r Plasmaon 05-24-2023 IgA [Mass/Vol] 64 mg/dL 64-422 [facility] Comment on above: Performed at: [address] Director: Salomon Mcarthur PhD, Phone: [phone] No Panel Informationon 05-23 Endomysial IgA Antibody Negative Negative [facility] Serum gliadin peptide IgA an tibody assay (units/volume)on 05-24-2023 Gliadin peptide IgA Qn (S) 4 units 0-19 [facility] Comment on above: Negative 0 - 19 Weak Positive 20 - 30 Moderate to Strong Positive >30 Serum gliadin peptide IgG an tibody assay (units/volume)on 05-24-2023 Gliadin peptide IgG Qn (S) 2 units 0-19 [facility] Comment on above: Negative 0 - 19 Weak Positive 20 - 30 Moderate to Strong Positive >30 Serum tissue transglutaminas e (tTG) IgA antibody assay (units/volume)on 05-24-2023 tTG IgA Qn (S) <2 U/mL 0-3 [facility] Comment on above: Negative 0 - 3 Weak Positive 4 - 10 Positive >10 Tissue Transglutaminase (tTG) has been identified as the endomysial antigen. Studies have demonstr- ated that endomysial IgA antibodies have over 99% specificity for gluten sensitive enteropathy. Serum tissue transglutaminas e (tTG) IgG antibody assay (units/volume)on 05-24-2023 tTG IgG Qn (S) <2 U/mL 0-5 [facility] Comment on above: Negative 0 - 5 Weak Positive 6 - 9 Positive >9 [facility] Report[facility] 05-10-2023 Lab Reports [id number]#1.00T IFF Normal [facility] Reports [id number]#1.00T IFF Normal [facility] Reports [id number]#1.00T IFF Normal [facility] Automated urine specific gra vity by refractometryon 05-06-2023 Specific gravity Refractometry automated (U) [Rel density] 1.025 1.005-1.02 5 [facility] Bilirubin Auto test strip (U ) [Mass/Vol]on 05-06-2023 Bilirubin (U) [Mass/Vol] Negative NEGATIVE [facility] Color Auto (U)on 05-06-2023 Color (U) YELLOW YELLOW [facility] Ketones Auto test strip (U) [Mass/Vol]on 05-06-2023 Ketones (U) [Mass/Vol] Negative NEGATIVE Fi [facility] Lab Reportson 05-06-2023 Lab Reports [id number]#1.00T IFF Normal [facility] - Microbiology an d Antimicrobial susceptibilityOrdered By: Gypsy Mcmahon on 05-06-2023 Bacteria identified Cx Nom (U) [facility] Protein Auto test strip (U) [Mass/Vol]on 05-06-2023 Protein (U) [Mass/Vol] Negative NEG/TRACE Fi [facility] Specific gravity Auto test s trip (U) [Rel density]on 05-06-2023 Specific gravity (U) [Rel density] CLEAR CLEAR [facility] Urine glucose measurement by test strip (mass/volume)on 05-06-2023 Glucose Test strip (U) [Mass/Vol] Negative NEGATIVE [facility] Urine hemoglobin detection b y automated test stripon 05-06-2023 Hemoglobin Auto test strip Ql (U) TRACE-I NEGATIVE [facility] Urine nitrite detection by a utomated test stripon 05-06-2023 Nitrite Auto test strip Ql (U) SMALL NEGATIVE [facility] Nitrite Auto test strip Ql (U) Positive NEGATIVE [facility] Urobilinogen Auto test strip (U) [Mass/Vol]on 05-06-2023 Urobilinogen Qn (U) 0.2 {Gen'U}/dL 0.2-1.0 [facility] pH Auto test strip (U)on pH (U) 5.5 [pH] 5.0-9.0 [facility] No Panel Informationon 04-30 Clostridium difficile (PCR)(LAB) Negative NEGATIVE [facility] No Panel Informationon 04-06 Clostridium difficile (PCR)(LAB) Positive Negative [facility] Comment on above: Toxigenic C difficil e: PositiveEpidemic Strain Bl/NAP1/027: Presumptive NegativePerformed at: [place] [id number] Director: Salomon Mcarthur PhD, Phone: [phone] IntraOperative Documentson 0 02-12-2023 IntraOperative Documents [id number]#1.00T IFF Normal [facility] Physician Orderon 02-12-2023 Physician Order [id number]#1.00T IFF Normal [facility] Physician Order [id number]#1.00T IFF Normal [facility] ED Note-Physicianon 02-05-20 ED Note-Physician [id number]#1.00 TIFF Normal [facility] Lab Reportson 02-04-2023 Lab Reports [id number]#1.00T IFF Normal [facility] Reports [id number]#1.00T IFF Normal [facility] Reports [id number]#1.00T IFF Normal [facility] Consent for Treatmenton 01-09 Consent for Treatment [id number]#1.00T IFF Normal [facility] Retail - Clinical Noteon Retail - Clinical Note [id number]#1.00T IFF Normal [facility] Lab Reportson 01-28-2023 Lab Reports [id number]#1.00T IFF Normal [facility] Physician Orderon 01-28-2023 Physician Order [id number]#1.00T IFF Normal [facility] Urology Office/Clinic Noteon 01-27-2023 Urology Office/Clinic Note [...] Urnls Dip Stick Auto w/o Microscopy POC 82171 2. 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 Case discussed w GI, Dr Brown's PHYSICIAN RELATIONS MANAGER Katie. he agrees w above plan. [...] the risks of side effects etc. Orders: [id number] Measure Post Void residual urine and/or bladder capacity by US- non-imaging Total time spent reviewing previous notes/results/external documents, preparing the chart, conducting the encounter with the patient and family, ordering tests/medications, and documenting the encounter was 40 minutes. Follow-up With When Contact Information MALATHI VIEIRA PA-C, URL [address] [place] [address] [phone] Additional Instructions: f/u in Spring Patient Education Urinary Tract Infection, Adult, Rkrw-kk-Biry Documentation recorded by the scribe Caprice Stratton accurately reflects the services(s) I performed and decisions made by me. Authenticated by Malathi Vieira PA-C on 01/27/2023 13:56:47. I, Caprice Stratton, personally scribed for Malathi Vieira PA-C on (more content not included)... Normal [facility] Comment on above: Result Comment: Elec tronically Signed By: MALATHI VIEIRA PA-C\.br\Date and Time Signed: 01/27/23 13:57 EST\.br\Electronically Co-Signed By: Caprice Stratton\.br\Date and Time Co-Signed: 01/26/23 16:09 EST Ambulatory Visit Summaryon 1 03-29-2022 Ambulatory Visit Summary DELICIA HSU :1935 Visit Date:01/26/2023 Ambulatory Visit Instructions Your Diagnosis Recurrent UTI Feeling of incomplete bladder emptying Colitis Tests Performed Urnls Dip Stick Auto w/o Microscopy POC 25567 Your Care Team Attending Physician - MALATHI [...] MALATHI VIEIRA PA-C Where: [facility] Patient Educationon 01-27-20 Patient Education Obstetrics [...] these instructions at home: Medicines ? Take ilfy-hln-hrlkwyi and prescription medicines only as told by [...] provider. Document Revised: 09/06/2020 Document Reviewed: 09/06/2020 [employer] Patient Education ? 2022 [place] Leather. Normal [facility] Lab Reportson 01-25-2023 Lab Reports [id number]#1.00T IFF Normal [facility] Reports [id number]#1.00T IFF Normal [facility] Reports [id number]#1.00T IFF Normal [facility] Lab Reportson 12-03-2022 Lab Reports [id number]#1.00TI FF [facility] Physician Orderon 12-01-2022 Physician Order [id number]#1.00T IFF [facility] Lab Reportson 09-25-2022 Lab Reports [id number]#1.00C D:127 [facility] Lab Reports [id number]#1.00C D:127 [facility] Physician Orderon 09-23-2022 Physician Order [id number]#1.00C D:127 [facility] Screenson 09-23-2022 Screens [id number]#1.00C D:127 [facility] Ambulatory Visit [...] MALATHI VIEIRA PA-C Where: [facility] Patient Educationon 09-23-19 Patient Education Obstetrics [...] these instructions at home: Medicines ? Take edes-pdp-xhdaimu and prescription medicines only as told by [...] provider. Document Revised: 09/06/2020 Document Reviewed: 09/06/2020 [employer] Patient Education ? 2022 [place] Leather. [facility] Urology Office/Clinic Noteon 09-22-2022 Urology Office/Clinic Note [...] symptoms not resolved. C&S this morning at [facility] ( not finalized) UTI symptoms Memory issues, [...] resolved per daughter. C&S this morning at [facility] (not finalized) - will call pt w/ [...] up having to send a U.Cx to [facility] so we can review the results. [...] When Contact Information MALATHI VIEIRA PA-C, URL [address] [place] [address] Additional Instructions: Patient Education Urinary Tract Infection, Adult, Gyaq-gp-Ggzh I, Jazlyn Lucero, personally scribed for Malathi [...] 3 mg (more content not included)... Normal [facility] Comment on above: Result Comment: Elec tronically Signed By: MALATHI VIEIRA PA-C\.br\Date and Time Signed: 09/22/22 16:16 EDT\.br\Electronically Co-Signed By: Jazyln Lucero\.br\Date and Time Co-Signed: 09/22/22 15:38 EDT [...] MI NUÑEZ Date: 2022-05-27 10:34 Normal [facility] CULTURE URINEon 05-14-2022 CULTURE URINE Culture Observations [...] Trimethoprim/Sulfametho xazole <=20 S F Normal [facility] Comment on above: Performed By: #### U RCX #### [facility] [address] [place] [address] Dr. Anthony Bonilla UA RANDOMon 05-11-2022 Bilirubin Ql (U) Negative Normal NEGATIVE [facility] Comment on above: Performed By: #### U RCX #### [facility] [address] [place] [address] Dr. Anthony Bonilla Clarity (U) SL CLOUDY Abnormal CLEAR [facility] Comment on above: Performed By: #### U RCX #### [facility] [address] [place] [address] Dr. Anthony Bonilla Color (U) LT. YELLOW Normal YELLOW [facility] Comment on above: Performed By: #### U RCX #### [facility] [address] [place] [address] [address] Anthony Bonilla Glucose Ql (U) Negative Normal NEGATIVE [facility] Comment on above: Performed By: #### U RCX #### [facility] [address] [place] [address] [address] Anthony Bonilla Hemoglobin Ql (U) Negative Normal NEGATIVE [facility] Comment on above: Performed By: #### U RCX #### [facility] [address] [place] [address] Dr. Anthony Bonilla Ketones Ql (U) Negative Normal NEGATIVE [facility] Comment on above: Performed By: #### U RCX #### [facility] [address] [place] [address] Dr. Anthony Bonilla LEUKOCYTES MODERATE Abnormal NEGATIVE [facility] Comment on above: Performed By: #### U RCX #### [facility] [address] [place] [address] Dr. Anthony Bonilla Nitrite Ql (U) Negative Normal NEGATIVE [facility] Comment on above: Performed By: #### U RCX #### [facility] [address] [place] [address] Dr. Anthony Bonilla pH (U) 5.5 [pH] Normal 5-9 [facility] Comment on above: Performed By: #### U RCX #### [facility] [address] [place] [address] Dr. Anthony Bonilla SPEC GRAVITY 1.020 Normal 1.005-<=1. 025 [facility] Comment on above: Performed By: #### U RCX #### [facility] [address] [place] [address] Dr. Anthony Bonilla UA PROTEIN Negative Normal NEGATIVE/ TRACE [facility] Comment on above: Performed By: #### U RCX #### [facility] [address] [place] [address] Dr. Anthony Bonilla Urobilinogen Qn (U) 0.2 {Gen'U}/dL Normal 0.2 - 1. 0 [facility] Comment on above: Performed By: #### U RCX #### [facility] [address] [place] [address] Dr. Anthony Bonilla CULTURE URINEon 05-01-2022 CULTURE [...] Trimethoprim/Sulfametho xazole <=20 S F Normal [facility] Comment on above: Performed By: #### U RCX #### [facility] [address] [place] [address] Dr. Anthony Bonilla CULTURE URINEon 04-16-2022 CULTURE [...] F Nitrofurantoin 64 I F Normal [facility] Comment on above: Performed By: #### U RCX #### [facility] [address] [place] [address] Dr. Anthony Bonilla UA RANDOMon 04-14-2022 Bilirubin Ql (U) Negative Normal NEGATIVE [facility] Comment on above: Performed By: #### U RCX #### [facility] [address] [place] [address] Dr. Anthony Bonilla Clarity (U) CLEAR Normal CLEAR [facility] Comment on above: Performed By: #### U RCX #### [facility] [address] [place] [address] Dr. Anthony Bonilla Color (U) LT. YELLOW Normal YELLOW [facility] Comment on above: Performed By: #### U RCX #### [facility] [address] [place] [address] Dr. Anthony Bonilla Glucose Ql (U) Negative Normal NEGATIVE [facility] Comment on above: Performed By: #### U RCX #### [facility] [address] [place] [address] Dr. Anthony Bonilla Hemoglobin Ql (U) Negative Normal NEGATIVE [facility] Comment on above: Performed By: #### U RCX #### [facility] [address] [place] [address] Dr. Anthony Bonilla Ketones Ql (U) Negative Normal NEGATIVE [facility] Comment on above: Performed By: #### U RCX #### [facility] [address] [place] [address] Dr. Anthony Bonilla LEUKOCYTES MODERATE Abnormal NEGATIVE [facility] Comment on above: Performed By: #### U RCX #### [facility] [address] [place] [address] Dr. Anthony Bonilla Nitrite Ql (U) Negative Normal NEGATIVE [facility] Comment on above: Performed By: #### U RCX #### [facility] [address] [place] [address] Dr. Anthony Bonilla pH (U) 5.5 [pH] Normal 5-9 [facility] Comment on above: Performed By: #### U RCX #### [facility] [address] [place] [address] [address] Anthony Bonilla SPEC GRAVITY 1.020 Normal 1.005-<=1. 025 [facility] Comment on above: Performed By: #### U RCX #### [facility] [address] [place] [address] [address] Anthony Bonilla UA PROTEIN Negative Normal NEGATIVE/ TRACE [facility] Comment on above: Performed By: #### U RCX #### [facility] [address] [place] [address] Dr. Anthony Bonilla Urobilinogen Qn (U) 0.2 {Gen'U}/dL Normal 0.2 - 1. 0 [facility] Comment on above: Performed By: #### U RCX #### [facility] [address] [place] [address] Dr. Anthony Bonilla Urinalysis - DIPSTICKon 03-12 Appearance (U) clear [employer] Other Bilirubin Ql (U) [employer] Other Color (U) dark yellow [employer] Other Glucose Ql (U) Negative [employer] Other Hemoglobin Ql (U) Negative [employer] Other Ketones Ql (U) trace [employer] Other Leukocyte esterase Test strip Ql (U) [employer] Other Nitrite Ql (U) Negative [employer] Other pH (U) 5.0 [pH] [employer] Other Protein Ql (U) Negative [employer] Other Specific gravity (U) [Rel density] 1.015 [employer] Other Urobilinogen (U) [Mass/Vol] 0.2 mg/dL [employer] Other Urinalysis - DIPSTICK [employer] Other Urine Cultureon 03-30-2022 Urine Culture 10,000 [employer] Other Bacteria identified Cx Nom (U) [employer] Other CULTURE URINEon 03-23-2022 CULTURE URINE Isolate 1 Pseudomonas aeruginosa >100,000 cfu/mL of ORGANISM 1 Pseudomonas aeruginosa ANTIBIOTIC M.I.C RX STATUS Piperacillin/Tazobactam 8 S F Ceftazidime 4 S F Imipenem 1 S F Amikacin <=2 S F Gentamicin <=1 S F Tobramycin <=1 S F Ciprofloxacin <=0.25 S F Levofloxacin 0.5 S F Normal [facility] Comment on above: Performed By: #### U RCX #### [facility] [address] [place] [address] Dr. Anthony Bonilla CARDIAC DARWIN ADMITon 023 CK [Catalytic activity/Vol] 137 U/L Normal 26-192 [facility] Comment on above: Performed By: #### U RCX #### [facility] [address] [place] [address] Dr. Anthony Bonilla CK.MB [Mass/Vol] 1.05 ng/mL Normal <=3.60 [facility] Comment on above: Performed By: #### U RCX #### [facility] [address] [place] [address] Dr. Anthony Bonilla HSTROP 17.6 pg/mL Normal 4.0-51.3 [facility] Comment on above: Result Comment: CUT- OFF POINTS HAVE BEEN ESTABLISHED BASED ON THE FOURTH UNIVERSAL DEFINITIONS OF MYOCARDIAL INFARCTION. THE UPPER REFERENCE LIMIT (URL) OF TROPONIN, DEFINED THE 99TH PERCENTILE OF cTnI DISTRIBUTION IN A REFERENCE POPULATION, HAS BEEN CONFIRMED THE DECISION THRESHOLD FOR [place] DIAGNOSIS. Performed By: #### U RCX #### [facility] [address] [place] [address] [address] Anthony Bonilla CANDIDA 72 ng/mL Normal 9-82 [facility] Comment on above: Performed By: #### U RCX #### [facility] [address] [place] [address] [address] Anthony Bonilla CBC AUTO DIFFon 03-20-2022 BASO # 0.0 103/ul Normal 0.0-0.1 [facility] Comment on above: Performed By: #### C BC #### [facility] [address] [place] [address] Dr. Anthony Bonilla Basophils/100 WBC (Bld) 0.3 % Normal 0.2-2.0 [facility] Comment on above: Performed By: #### C BC #### [facility] [address] [place] [address] Dr. Anthony Bonilla EO # 0.0 103/ul Normal 0.0-0.7 [facility] Comment on above: Performed By: #### C BC #### [facility] [address] [place] [address] Dr. Anthony Bonilla Eosinophils/100 WBC (Bld) 0.1 % Critically low 0.9-7.0 [facility] Comment on above: Performed By: #### C BC #### [facility] [address] [place] [address] Dr. Anthony Bonilla Erythrocyte distribution width (RBC) [Ratio] 15.9 % Critically high 11.0-15.0 [facility] Comment on above: Performed By: #### C BC #### [facility] [address] [place] [address] Dr. Anthony Bonilla Hematocrit (Bld) [Volume fraction] 33.6 % Critically low 36.0-48.0 [facility] Comment on above: Performed By: #### C BC #### [facility] [address] [place] [address] Dr. Anthony Bonilla Hemoglobin (Bld) [Mass/Vol] 11.2 g/dL Critically low 12.0-16.0 [facility] Comment on above: Performed By: #### C BC #### [facility] [address] [place] [address] Dr. Anthony Bonilla IG # 0.04 10e3/ul Critically high 0.00-0.03 [facility] Comment on above: Performed By: #### C BC #### [facility] [address] [place] [address] Dr. Anthony Bonilla IG % 0.3 % Normal 0.0-0.5 [facility] Comment on above: Performed By: #### C BC #### [facility] [address] [place] [address] Dr. Anthony Bonilla LYMPH # 0.8 103/ul Critically low 1.2-3.8 [facility] Comment on above: Performed By: #### C BC #### [facility] [address] [place] [address] Dr. Anthony Bonilla Lymphocytes/100 WBC (Bld) 6.4 % Critically low 20.5-60.0 [facility] Comment on above: Performed By: #### C BC #### [facility] [address] [place] [address] Dr. Anthony Bonilla MANUAL DIFF REQ NO Normal [facility] Comment on above: Performed By: #### C BC #### [facility] [address] [place] [address] Dr. Anthony Bonilla MCH (RBC) [Entitic mass] 28.9 pg Normal 26.7-34.0 [facility] Comment on above: Performed By: #### C BC #### [facility] [address] [place] [address] Dr. Anthony Bonilla MCHC (RBC) [Mass/Vol] 33.3 g/dL Normal 29.9-35.2 [facility] Comment on above: Performed By: #### C BC #### [facility] [address] [place] [address] Dr. Anthony Bonilla MCV (RBC) [Entitic vol] 86.8 fL Normal 81.0-99.0 [facility] Comment on above: Performed By: #### C BC #### [facility] [address] [address] [address] Anthony Bonilla MONO # 1.1 103/ul Critically high 0.3-0.8 [facility] Comment on above: Performed By: #### C BC #### [facility] [address] [address] [address] Anthony Bonilla Monocytes/100 WBC (Bld) 8.3 % Normal 1.7-12.0 [facility] Comment on above: Performed By: #### C BC #### [facility] [address] [address] [address] Anthony Bonilla NEUT # 11.2 103/ul Critically high 1.4-6.5 [facility] Comment on above: Performed By: #### C BC #### [facility] [address] [place] [address] Dr. Anthony Bonilla Neutrophils/100 WBC (Bld) 84.6 % Critically high 43.0-75.0 [facility] Comment on above: Performed By: #### C BC #### [facility] [address] [place] [address] Dr. Anthony Bonilla Platelet mean volume (Bld) [Entitic vol] 9.7 fL Normal 9.5-13.5 [facility] Comment on above: Performed By: #### C BC #### [facility] [address] [address] [address] Anthony Bonilla PLT 274 103/ul Normal 150-450 [facility] Comment on above: Performed By: #### C BC #### [facility] [address] [address] [address] Anthony Bonilla RBC 3.87 106/ul Critically low 4.20-5.40 [facility] Comment on above: Performed By: #### C BC #### [facility] [address] [address] [address] Anthony Bonilla WBC 13.2 103/ul Critically high 4.0-11.0 [facility] Comment on above: Performed By: #### C BC #### [facility] [address] [address] [address] HEAD WO CONon [...] CLAU SHAH Date: 2022-03-20 20:30 Normal [facility] URINE PROFILEon 3 Bilirubin Ql (U) Negative Normal NEGATIVE [facility] Comment on above: Performed By: #### C BC #### [facility] [address] [place] [address] Dr. Anthony Bonilla Clarity (U) CLEAR Normal CLEAR [facility] Comment on above: Performed By: #### C BC #### [facility] [address] [place], [place] [id number] Dr. Anthony Bonilla Color (U) LT. YELLOW Normal YELLOW [facility] Comment on above: Performed By: #### C BC #### [facility] [address] [place] [address] Dr. Anthony BANGURA A micrscopic examination will be performed if indicated. Normal [facility] Comment on above: Performed By: #### C BC #### [facility] [address] [place] [address] Dr. Anthony Bonilla Glucose Ql (U) Negative Normal NEGATIVE [facility] Comment on above: Performed By: #### C BC #### [facility] [address] [place] [address] Dr. Anthony Bonilla Hemoglobin Ql (U) LARGE Abnormal NEGATIVE [facility] Comment on above: Performed By: #### C BC #### [facility] [address] [place] [address] Dr. Anthony Bonilla Ketones Ql (U) Negative Normal NEGATIVE [facility] Comment on above: Performed By: #### C BC #### [facility] [address] [place] [address] Dr. Anthony Bonilla LEUKOCYTES SMALL Abnormal NEGATIVE [facility] Comment on above: Performed By: #### C BC #### [facility] [address] [place] [address] Dr. Anthony Bonilla Nitrite Ql (U) Positive Abnormal NEGATIVE [facility] Comment on above: Performed By: #### C BC #### [facility] [address] [place] [address] Dr. Anthony Bonilla pH (U) 7.0 [pH] Normal 5-9 [facility] Comment on above: Performed By: #### C BC #### [facility] [address] [place] [address] Dr. Anthony Bonilla Protein (U) [Mass/Vol] 30 mg/dL Abnormal NEGAT JAMAR/ TRACE [facility] Comment on above: Performed By: #### C BC #### [facility] [address] [place] [address] Dr. Anthony Bonilla SPEC GRAVITY 1.015 Normal 1.005-<=1. 025 [facility] Comment on above: Performed By: #### C BC #### [facility] [address] [place] [address] Dr. Anthony Bonilla UR MICRO IND INDICATED Normal [facility] Comment on above: Performed By: #### C BC #### [facility] [address] [place] [address] Dr. Anthony Bonilla Urobilinogen Qn (U) 1.0 {Gen'U}/dL Normal 0.2 - 1. 0 [facility] Comment on above: Performed By: #### C BC #### [facility] [address] [place] [address] Dr. Anthony Bonilla PROF 14(COMP METB)on 023 Albumin [Mass/Vol] 3.4 g/dL Normal 3.4-5.0 [facility] Comment on above: Performed By: #### U RCX #### [facility] [address] [place] [address] Dr. Anthony Bonilla Albumin/Globulin [Mass ratio] 1.2 {ratio} Normal [facility] Comment on above: Performed By: #### U RCX #### [facility] [address] [place] [address] Dr. Anthony Bonilla ALP [Catalytic activity/Vol] 26 U/L Critically low 46-116 [facility] Comment on above: Performed By: #### U RCX #### [facility] [address] [place] [address] Dr. Anthony Bonilla ALT [Catalytic activity/Vol] 21 U/L Normal 14-59 [facility] Comment on above: Performed By: #### U RCX #### [facility] [address] [place] [address] Dr. Anthony Bonilla Anion gap [Moles/Vol] 13.7 mmol/L Normal [facility] Comment on above: Performed By: #### U RCX #### [facility] [address] [place] [address] Dr. Anthony Bonilla AST [Catalytic activity/Vol] 20 U/L Normal 15-37 [facility] Comment on above: Performed By: #### U RCX #### [facility] [address] [address] [address] Anthony Bonilla Bilirubin [Mass/Vol] 1.2 mg/dL Critically high 0.2-1.0 [facility] Comment on above: Performed By: #### U RCX #### [facility] [address] [address] [address] Anthony Bonilla Calcium [Mass/Vol] 9.4 mg/dL Normal 8.5-10.1 [facility] Comment on above: Performed By: #### U RCX #### [facility] [address] [address] [address] Anthony Bonilla Chloride [Moles/Vol] 99 mmol/L Normal 98-107 [facility] Comment on above: Performed By: #### U RCX #### [facility] [address] [address] [address] Anthony Bonilla CO2 [Moles/Vol] 29.1 mmol/L Normal 21.0-32.0 [facility] Comment on above: Performed By: #### U RCX #### [facility] [address] [address] [address] Anthony Bonilla Creatinine [Mass/Vol] 1.02 mg/dL Normal 0.55-1.02 [facility] Comment on above: Performed By: #### U RCX #### [facility] [address] [place] [address] Dr. Anthony Bonilla EGFR-AF [place] >60 Normal >=60 [facility] Comment on above: Performed By: #### U RCX #### [facility] [address] [address] [address] Anthony Bonilla EGFR-NON AF [place] 52 mL/min/1.73m2 Critically low >=60 [facility] Comment on above: Performed By: #### U RCX #### [facility] [address] [address] [address] Anthony Bonilla Globulin (S) [Mass/Vol] 2.9 g/dL Normal [facility] Comment on above: Performed By: #### U RCX #### [facility] [address] [address] [address] Anthony Bonilla Glucose [Mass/Vol] 98 mg/dL Normal 74-106 [facility] Comment on above: Performed By: #### U RCX #### [facility] [address] [place] [address] Dr. Anthony Bonilla Potassium [Moles/Vol] 3.8 mmol/L Normal 3.5-5.1 [facility] Comment on above: Performed By: #### U RCX #### [facility] [address] [place] [address] Dr. Anthony Bonilla Protein [Mass/Vol] 6.3 g/dL Critically low 6.4-8.2 [facility] Comment on above: Performed By: #### U RCX #### [facility] [address] [place] [address] Dr. Anthony Bonilla Sodium [Moles/Vol] 138 mmol/L Normal 136-145 [facility] Comment on above: Performed By: #### U RCX #### [facility] [address] [place] [address] Dr. Anthony Bonilla Urea nitrogen [Mass/Vol] 16.0 mg/dL Normal 7.0-18.0 [facility] Comment on above: Performed By: #### U RCX #### [facility] [address] [place] [address] Dr. Anthony Bonilla Urea nitrogen/Creatinine [Mass ratio] 15.7 mg/mg Normal [facility] Comment on above: Performed By: #### U RCX #### [facility] [address] [place] [address] Dr. Anthony Bonilla URINE MICROSCOPIC ONLYon BACTERIA LARGE Abnormal NONE SEEN [facility] Comment on above: Performed By: #### C BC #### [facility] [address] [place] [address] Dr. Anthony Bonilla Bacteria identified Cx Nom (U) INDICATED Normal [facility] Comment on above: Performed By: #### C BC #### [facility] [address] [place] [address] Dr. Anthony Bonilla CAST NONE SEEN Normal NONE SEEN [facility] Comment on above: Performed By: #### C BC #### [facility] [address] [address] [address] Anthony Bonilla Crystals LM Nom (Urine sed) NONE SEEN Normal NONE SEEN [facility] Comment on above: Performed By: #### C BC #### [facility] [address] [place] [address] Dr. Anthony Bonilla Epithelial cells LM Ql (Urine sed) FEW Abnormal NONE SEEN /RARE [facility] Comment on above: Performed By: #### C BC #### [facility] [address] [place] [address] Dr. Anthony Bonilla MUCOUS NONE SEEN Normal NONE SEEN [facility] Comment on above: Performed By: #### C BC #### [facility] [address] [place] [address] Dr. Anthony Bonilla RBC 10-20 Abnormal 0-2 [facility] Comment on above: Performed By: #### C BC #### [facility] [address] [place] [address] Dr. Anthony Bonilla WBC 50-75 Abnormal NONE SEEN [facility] Comment on above: Performed By: #### C BC #### [facility] [address] [place] [address] Dr. Anthony Bonilla CALPROTECTIN, FECALon 2022 Calprotectin, Fecal 416 ug/g Critically high 0-120 [facility] Comment on above: Result Comment: Conc entration Interpretation Follow-Up <16 - 50 ug/g Normal None >50 -120 ug/g Borderline Re-evaluate in 4-6 weeks >120 ug/g Abnormal Repeat as clinically indicated Performed By: #### U RCX #### [facility] [address] [place] [address] Dr. Anthony Bonilla QUANTIFERON TB GOLD PLUSon 0 02-19-2022 QuantiFERON Criteria Comment Normal [facility] Comment on above: Result Comment: Butch tiFERON-TB [...] test. Performed By: #### U RCX #### [facility] [address] [place] [address] Dr. Anthony Bonilla QuantiFERON Incubation Incubation performed. Normal [facility] Comment on above: Performed By: #### U RCX #### [facility] [address] [place] [address] Dr. Anthony Bonilla QuantiFERON Mitogen Value >10.00 Normal [facility] Comment on above: Performed By: #### U RCX #### [facility] [address] [place] [address] Dr. Anthony Bonilla QuantiFERON Nil Value 0.07 IU/mL Normal [facility] Comment on above: Performed By: #### U RCX #### [facility] [address] [place] [address] Dr. Anthony Bonilla QuantiFERON TB1 Ag Value 0.08 IU/mL Normal [facility] Comment on above: Performed By: #### U RCX #### [facility] [address] [place] [address] Dr. Anthony Bonilla QuantiFERON TB2 Ag Value 0.07 IU/mL Normal [facility] Comment on above: Performed By: #### U RCX #### [facility] [address] [place] [address] Dr. Anthony Bonilla QuantiFERON-TB Gold Plus Negative Normal Negative [facility] Comment on above: Result Comment: No r esponse to M tuberculosis antigens detected. Infection with M tuberculosis is unlikely, but high risk individuals should be considered for additional testing (ATS/IDSA/CDC Clinical Practice Guidelines, 2017). The reference range is an Antigen minus Nil result of <0.35 IU/mL. Chemiluminescence immunoassay methodology Performed By: #### U RCX #### [facility] [address] [place] [address] Dr. Anthony Bonilla HEP B SURFACE ANTIGEN SCREEN on 02-18-2022 HBsAg Screen Negative Normal Negative [facility] Comment on above: Performed By: #### U RCX #### [facility] [address] [place] [address] Dr. nAthony Bonilla HEPATITIS B CORE, IgMon 02-08 Hep B Core Ab, IgM Negative Normal Negative [facility] Comment on above: Performed By: #### U RCX #### [facility] [address] [place] [address] Dr. Anthony Bonilla HEPATITIS B SURFACE ANTIBODY , QUANTon 02-18-2022 Hepatitis B Surf AB Quant <3.1 Critically low Immunity>9 .9 [facility] Comment on above: Result Comment: Stat us of Immunity Anti-HBs Level Inconsistent with Immunity 0.0 - 9.9 Consistent with Immunity >9.9 Performed By: #### C BC #### [facility] [address] [place] [address] Dr. Anthony Bonilla CBC AUTO DIFFon 02-17-2022 BASO # 0.0 103/ul Normal 0.0-0.1 [facility] Comment on above: Performed By: #### U RCX #### [facility] [address] [place] [address] Dr. Anthony Bonilla Basophils/100 WBC (Bld) 0.4 % Normal 0.2-2.0 [facility] Comment on above: Performed By: #### U RCX #### [facility] [address] [place] [address] Dr. Anthony Bonilla EO # 0.0 103/ul Normal 0.0-0.7 [facility] Comment on above: Performed By: #### U RCX #### [facility] [address] [place] [address] Dr. Anthony Bonilla Eosinophils/100 WBC (Bld) 0.5 % Critically low 0.9-7.0 [facility] Comment on above: Performed By: #### U RCX #### [facility] [address] [place] [address] Dr. Anthony Bonilla Erythrocyte distribution width (RBC) [Ratio] 14.7 % Normal 11.0-15.0 [facility] Comment on above: Performed By: #### U RCX #### [facility] [address] [place] [address] Dr. Anthony Bonilla Hematocrit (Bld) [Volume fraction] 33.2 % Critically low 36.0-48.0 [facility] Comment on above: Performed By: #### U RCX #### [facility] [address] [place] [address] Dr. Anthony Bonilla Hemoglobin (Bld) [Mass/Vol] 11.0 g/dL Critically low 12.0-16.0 [facility] Comment on above: Performed By: #### U RCX #### [facility] [address] [place] [address] Dr. Anthony Bonilla IG # 0.02 10e3/ul Normal 0.00-0.03 [facility] Comment on above: Performed By: #### U RCX #### [facility] [address] [place] [address] Dr. Anthony Bonilla IG % 0.2 % Normal 0.0-0.5 [facility] Comment on above: Performed By: #### U RCX #### [facility] [address] [place] [address] Dr. Anthony Bonilla LYMPH # 1.3 103/ul Normal 1.2-3.8 [facility] Comment on above: Performed By: #### U RCX #### [facility] [address] [place] [address] Dr. Anthony Bonilla Lymphocytes/100 WBC (Bld) 14.8 % Critically low 20.5-60.0 [facility] Comment on above: Performed By: #### U RCX #### [facility] [address] [place] [address] Dr. Anthony Bonilla MANUAL DIFF REQ NO Normal [facility] Comment on above: Performed By: #### U RCX #### [facility] [address] [place] [address] Dr. Anthony Bonilla MCH (RBC) [Entitic mass] 29.0 pg Normal 26.7-34.0 [facility] Comment on above: Performed By: #### U RCX #### [facility] [address] [place] [address] Dr. Anthony Bonilla MCHC (RBC) [Mass/Vol] 33.1 g/dL Normal 29.9-35.2 [facility] Comment on above: Performed By: #### U RCX #### [facility] [address] [place] [address] Dr. Anthony Bonilla MCV (RBC) [Entitic vol] 87.6 fL Normal 81.0-99.0 [facility] Comment on above: Performed By: #### U RCX #### [facility] [address] [place] [address] Dr. Anthony Bonilla MONO # 0.8 103/ul Normal 0.3-0.8 [facility] Comment on above: Performed By: #### U RCX #### [facility] [address] [place] [address] Dr. Anthony Bonilla Monocytes/100 WBC (Bld) 9.6 % Normal 1.7-12.0 [facility] Comment on above: Performed By: #### U RCX #### [facility] [address] [place] [address] Dr. Anthony Bonilla NEUT # 6.3 103/ul Normal 1.4-6.5 [facility] Comment on above: Performed By: #### U RCX #### [facility] [address] [place] [address] Dr. Anthony Bonilla Neutrophils/100 WBC (Bld) 74.5 % Normal 43.0-75.0 [facility] Comment on above: Performed By: #### U RCX #### [facility] [address] [place] [address] Dr. Anthony Bonilla Platelet mean volume (Bld) [Entitic vol] 9.8 fL Normal 9.5-13.5 [facility] Comment on above: Performed By: #### U RCX #### [facility] [address] [place] [address] Dr. Anthony Bonilla PLT 318 103/ul Normal 150-450 [facility] Comment on above: Performed By: #### U RCX #### [facility] [address] [address] [address] Anthony Bonilla RBC 3.79 106/ul Critically low 4.20-5.40 [facility] Comment on above: Performed By: #### U RCX #### [facility] [address] [address] [address] Anthony Bonilla WBC 8.5 103/ul Normal 4.0-11.0 [facility] Comment on above: Performed By: #### U RCX #### [facility] [address] [address] [address] Anthony Bonilla PROF 14(COMP METB)on 023 Albumin [Mass/Vol] 3.6 g/dL Normal 3.4-5.0 [facility] Comment on above: Performed By: #### U RCX #### [facility] [address] [address] [address] Anthony Bonilla Albumin/Globulin [Mass ratio] 1.2 {ratio} Normal [facility] Comment on above: Performed By: #### U RCX #### [facility] [address] [address] [address] Anthony Bonilla ALP [Catalytic activity/Vol] 27 U/L Critically low 46-116 [facility] Comment on above: Performed By: #### U RCX #### [facility] [address] [address] [address] Anthony Bonilla ALT [Catalytic activity/Vol] 21 U/L Normal 14-59 [facility] Comment on above: Performed By: #### U RCX #### [facility] [address] [address] [address] Anthony Bonilla Anion gap [Moles/Vol] 13.5 mmol/L Normal [facility] Comment on above: Performed By: #### U RCX #### [facility] [address] [address] [address] Anthony Bonilla AST [Catalytic activity/Vol] 19 U/L Normal 15-37 [facility] Comment on above: Performed By: #### U RCX #### [facility] [address] [address] [address] Anthony Bonilla Bilirubin [Mass/Vol] 0.6 mg/dL Normal 0.2-1.0 [facility] Comment on above: Performed By: #### U RCX #### [facility] [address] [address] [address] Anthony Bonilla Calcium [Mass/Vol] 9.2 mg/dL Normal 8.5-10.1 [facility] Comment on above: Performed By: #### U RCX #### [facility] [address] [address] [address] Anthony Bonilla Chloride [Moles/Vol] 104 mmol/L Normal 98-107 [facility] Comment on above: Performed By: #### U RCX #### [facility] [address] [address] [address] Anthony Bonilla CO2 [Moles/Vol] 28.9 mmol/L Normal 21.0-32.0 [facility] Comment on above: Performed By: #### U RCX #### [facility] [address] [address] [address] Anthony Bonilla Creatinine [Mass/Vol] 1.21 mg/dL Critically high 0.55-1.02 [facility] Comment on above: Performed By: #### U RCX #### [facility] [address] [address] [address] Anthony Bonilla EGFR-AF [place] 51 mL/min/1.73m2 Critically low >=60 [facility] Comment on above: Performed By: #### U RCX #### [facility] [address] [address] [address] Anthony Bonilla EGFR-NON AF [place] 42 mL/min/1.73m2 Critically low >=60 [facility] Comment on above: Performed By: #### U RCX #### [facility] [address] [address] [address] Anthony Bonilla Globulin (S) [Mass/Vol] 3.1 g/dL Normal [facility] Comment on above: Performed By: #### U RCX #### [facility] [address] [address] [address] Anthony Bonilla Glucose [Mass/Vol] 107 mg/dL Critically high 74-106 [facility] Comment on above: Performed By: #### U RCX #### [facility] [address] [address] [address] Anthony Bonilla Potassium [Moles/Vol] 3.4 mmol/L Critically low 3.5-5.1 [facility] Comment on above: Performed By: #### U RCX #### [facility] [address] [address] [address] Anthony Bonilla Protein [Mass/Vol] 6.7 g/dL Normal 6.4-8.2 [facility] Comment on above: Performed By: #### U RCX #### [facility] [address] [address] [address] Anthony Bonilla Sodium [Moles/Vol] 143 mmol/L Normal 136-145 [facility] Comment on above: Performed By: #### U RCX #### [facility] [address] [address] [address] Anthony Bonilla Urea nitrogen [Mass/Vol] 22.0 mg/dL Critically high 7.0-18.0 [facility] Comment on above: Performed By: #### U RCX #### [facility] [address] [address] [address] Anthony Bonilla Urea nitrogen/Creatinine [Mass ratio] 18.2 mg/mg Normal [facility] Comment on above: Performed By: #### U RCX #### [facility] [address] [address] [address] Anthony Bonilla Automated erythrocytes count in urine sediment (number/area)Ordered By: Gypsy Mcmahon on 02-16-2022 RBC Auto (Urine sed) [#/Area] 0-1 [HPF] 0-4 [facility] Automated leukocytes count i n urine sediment (number/area)Ordered By: Gypsy Mcmahon on 02-16-2022 WBC Auto (Urine sed) [#/Area] 20-49 [HPF] 0-4 [facility] Bilirubin Test strip Ql (U)O rdered By: Gypsy Mcmahon on 02-16-2022 Bilirubin Ql (U) Negative Negative [facility] Color Auto (U)Ordered By: Nicole Mcmahon on 02-16-2022 Color (U) Yellow Yellow [facility] Ketones Auto test strip (U) [Mass/Vol]Ordered By: Gypsy Mcmahon on 02-16-2022 Ketones (U) [Mass/Vol] Trace Negative [facility] - UrinalysisOrder ed By: Gypsy Mcmahon on 02-16-2022 Hyaline casts LM Ql (Urine sed) 9-19 [LPF] 0-8 [facility] Nitrite Test strip Ql (U)Ord ered By: Gypsy Mcmahon on 02-16-2022 Nitrite Ql (U) Positive Negative [facility] Protein Auto test strip (U) [Mass/Vol]Ordered By: Gypsy Mcmahon on 02-16-2022 Protein (U) [Mass/Vol] Negative Negative [facility] Specific gravity Auto test s trip (U) [Rel density]Ordered By: Gypsy Mcmahon on 02-16-2022 Specific gravity (U) [Rel density] 1.018 1.001-1.03 0 [facility] Squamous epithelial cells de tection in urine sediment by light microscopyOrdered By: Gypsy Mcmahon on 02-16-2022 Epithelial cells.squamous LM Ql (Urine sed) 5-9 [HPF] 0-2 [facility] Urine Cultureon 02-16-2022 Urine Culture >100,000 [employer] Other Urine Culture <16 Susceptible [employer] Other Urine Culture <8/4 Susceptible [employer] Other Urine Culture <4 Susceptible [employer] Other Urine Culture <2 Susceptible [employer] Other Urine Culture <1 Susceptible [employer] Other Urine Culture <0.25 Susceptible [employer] Other Urine Culture <0.5 Susceptible [employer] Other Urine Culture <32 Susceptible [employer] Other Urine Culture <0.5/9.5 Susceptible [employer] Other Urine bacteria detection by automated methodOrdered By: Gypsy Mcmahon on 02-16-2022 Bacteria Auto Ql (U) 2+ None Seen [facility] Urine clarity by refractomet ry automatedOrdered By: Gypsy Mcmahon on 02-16-2022 Clarity Refractometry automated (U) Cloudy Clear [facility] Urine culture routineOrdered By: Gypsy Mcmahon on 02-16-2022 Bacteria identified Cx Nom (U) Klebsiella variicola [facility] Urine glucose measurement by automated test strip (mass/volume)Ordered By: Gypsy Mcmahon on 02-16-2022 Glucose Auto test strip (U) [Mass/Vol] Normal mg/dL Normal [facility] Urine hemoglobin detection b y automated test stripOrdered By: Gypsy Mcmahon on 02-16-2022 Hemoglobin Auto test strip Ql (U) Negative Negative [facility] Urine leukocyte esterase det ection by automated test stripOrdered By: Gypsy Mcmahon on 02-16-2022 Leukocyte esterase Auto test strip Ql (U) 2+ Negative [facility] Urobilinogen Auto test strip (U) [Mass/Vol]Ordered By: Gypsy Mcmahon on 02-16-2022 Urobilinogen (U) [Mass/Vol] Normal mg/dL Normal [facility] pH Auto test strip (U)Ordere d By: Gypsy Mcmahon on 02-16-2022 pH (U) 5.5 [pH] 5.0-9.0 [facility] CBC AUTO DIFFon 01-15-2022 BASO # 0.0 103/ul Normal 0.0-0.1 [facility] Comment on above: Performed By: #### C BC #### [facility] [address] [address] [address] Anthony Bonilla Basophils/100 WBC (Bld) 0.5 % Normal 0.2-2.0 [facility] Comment on above: Performed By: #### C BC #### [facility] [address] [place] [address] Dr. Anthony Bonilla EO # 0.1 103/ul Normal 0.0-0.7 [facility] Comment on above: Performed By: #### C BC #### [facility] [address] [place] [address] Dr. Anthony Bonilla Eosinophils/100 WBC (Bld) 0.9 % Normal 0.9-7.0 [facility] Comment on above: Performed By: #### C BC #### [facility] [address] [place] [address] Dr. Anthony Bonilla Erythrocyte distribution width (RBC) [Ratio] 14.8 % Normal 11.0-15.0 [facility] Comment on above: Performed By: #### C BC #### [facility] [address] [place] [address] Dr. Anthony Bonilla Hematocrit (Bld) [Volume fraction] 30.3 % Critically low 36.0-48.0 [facility] Comment on above: Performed By: #### C BC #### [facility] [address] [place] [address] Dr. Anthony Bonilla Hemoglobin (Bld) [Mass/Vol] 9.8 g/dL Critically low 12.0-16.0 [facility] Comment on above: Performed By: #### C BC #### [facility] [address] [place] [address] Dr. Anthony Bonilla IG # 0.03 10e3/ul Normal 0.00-0.03 [facility] Comment on above: Performed By: #### C BC #### [facility] [address] [place] [address] Dr. Anthony Bonilla IG % 0.3 % Normal 0.0-0.5 [facility] Comment on above: Performed By: #### C BC #### [facility] [address] [place] [address] Dr. Anthony Bonilla LYMPH # 1.4 103/ul Normal 1.2-3.8 [facility] Comment on above: Performed By: #### C BC #### [facility] [address] [place] [address] Dr. Anthony Bonilla Lymphocytes/100 WBC (Bld) 15.7 % Critically low 20.5-60.0 [facility] Comment on above: Performed By: #### C BC #### [facility] [address] [place] [address] Dr. Anthony Bonilla MANUAL DIFF REQ NO Normal [facility] Comment on above: Performed By: #### C BC #### [facility] [address] [place] [address] Dr. Anthony Bonilla MCH (RBC) [Entitic mass] 30.0 pg Normal 26.7-34.0 [facility] Comment on above: Performed By: #### C BC #### [facility] [address] [place] [address] Dr. Anthony Bonilla MCHC (RBC) [Mass/Vol] 32.3 g/dL Normal 29.9-35.2 [facility] Comment on above: Performed By: #### C BC #### [facility] [address] [place] [address] Dr. Anthony Bonilla MCV (RBC) [Entitic vol] 92.7 fL Normal 81.0-99.0 [facility] Comment on above: Performed By: #### C BC #### [facility] [address] [place] [address] Dr. Anthony Bonilla MONO # 1.1 103/ul Critically high 0.3-0.8 [facility] Comment on above: Performed By: #### C BC #### [facility] [address] [place] [address] Dr. Anthony Bonilla Monocytes/100 WBC (Bld) 12.0 % Normal 1.7-12.0 [facility] Comment on above: Performed By: #### C BC #### [facility] [address] [place] [address] Dr. Anthony Bonilla NEUT # 6.2 103/ul Normal 1.4-6.5 [facility] Comment on above: Performed By: #### C BC #### [facility] [address] [address] [address] Anthony Bonilla Neutrophils/100 WBC (Bld) 70.6 % Normal 43.0-75.0 [facility] Comment on above: Performed By: #### C BC #### [facility] [address] [address] [address] Anthony Bonilla Platelet mean volume (Bld) [Entitic vol] 9.8 fL Normal 9.5-13.5 [facility] Comment on above: Performed By: #### C BC #### [facility] [address] [address] [address] Anthony Bonilla PLT 305 103/ul Normal 150-450 [facility] Comment on above: Performed By: #### C BC #### [facility] [address] [place] [address] Dr. Anthony Bonilla RBC 3.27 106/ul Critically low 4.20-5.40 [facility] Comment on above: Performed By: #### C BC #### [facility] [address] [address] [address] Anthony Bonilla WBC 8.7 103/ul Normal 4.0-11.0 [facility] Comment on above: Performed By: #### C BC #### [facility] [address] [place] [address] Dr. Anthony Bonilla PROF CHEM 8 (BAS METB)on Anion gap [Moles/Vol] 12.2 mmol/L Normal [facility] Comment on above: Performed By: #### U RCX #### [facility] [address] [address] [address] Anthony Bonilla Calcium [Mass/Vol] 9.1 mg/dL Normal 8.5-10.1 [facility] Comment on above: Performed By: #### U RCX #### [facility] [address] [place] [address] Dr. Anthony Bonilla Chloride [Moles/Vol] 104 mmol/L Normal 98-107 [facility] Comment on above: Performed By: #### U RCX #### [facility] [address] [address] [address] Anthony Bonilla CO2 [Moles/Vol] 24.4 mmol/L Normal 21.0-32.0 [facility] Comment on above: Performed By: #### U RCX #### [facility] [address] [address] [address] Anthony Bonilla Creatinine [Mass/Vol] 1.20 mg/dL Critically high 0.55-1.02 [facility] Comment on above: Performed By: #### U RCX #### [facility] [address] [address] [address] Anthony Bonilla EGFR-AF [place] 52 mL/min/1.73m2 Critically low >=60 [facility] Comment on above: Performed By: #### U RCX #### [facility] [address] [address] [address] Anthony Bonilla EGFR-NON AF [place] 43 mL/min/1.73m2 Critically low >=60 [facility] Comment on above: Performed By: #### U RCX #### [facility] [address] [address] [address] Anthony Bonilla Glucose [Mass/Vol] 81 mg/dL Normal 74-106 [facility] Comment on above: Performed By: #### U RCX #### [facility] [address] [address] [address] Anthony Bonilla Potassium [Moles/Vol] 3.6 mmol/L Normal 3.5-5.1 [facility] Comment on above: Performed By: #### U RCX #### [facility] [address] [address] [address] Anthony Bonilla Sodium [Moles/Vol] 137 mmol/L Normal 136-145 [facility] Comment on above: Performed By: #### U RCX #### [facility] [address] [address] [address] Anthony Bonilla Urea nitrogen [Mass/Vol] 21.0 mg/dL Critically high 7.0-18.0 [facility] Comment on above: Performed By: #### U RCX #### [facility] [address] [address] [address] Anthony Bonilla Urea nitrogen/Creatinine [Mass ratio] 17.5 mg/mg Normal [facility] Comment on above: Performed By: #### U RCX #### [facility] [address] [address] [address] Anthony Bonilla CULTURE URINEon 12-29-2021 CULTURE [...] Trimethoprim/Sulfametho xazole <=20 S F Normal [facility] Comment on above: Performed By: #### U RCX #### [facility] [address] [place] [address] Dr. Anthony Bonilla ER URINE PROFILEon 2 Bilirubin Ql (U) SMALL Abnormal NEGATIVE [facility] Comment on above: Performed By: #### C BC #### [facility] [address] [place] [address] Dr. Anthony Bonilla Clarity (U) SL CLOUDY Abnormal CLEAR [facility] Comment on above: Performed By: #### C BC #### [facility] [address] [place] [address] Dr. Anthony Bonilla Color (U) YELLOW Normal YELLOW [facility] Comment on above: Performed By: #### C BC #### [facility] [address] [place] [address] Dr. Anthony BANGURA A micrscopic examination will be performed if indicated. Normal [facility] Comment on above: Performed By: #### C BC #### [facility] [address] [address] [address] Anthony Bonilla Glucose Ql (U) Negative Normal NEGATIVE [facility] Comment on above: Performed By: #### C BC #### [facility] [address] [place] [address] Dr. Atnhony Bonilla Hemoglobin Ql (U) Negative Normal NEGATIVE [facility] Comment on above: Performed By: #### C BC #### [facility] [address] [place] [address] Dr. Anthony Bonilla Ketones Ql (U) TRACE Abnormal NEGATIVE [facility] Comment on above: Performed By: #### C BC #### [facility] [address] [place] [address] Dr. Anthony Bonilla LEUKOCYTES MODERATE Abnormal NEGATIVE [facility] Comment on above: Performed By: #### C BC #### [facility] [address] [place] [address] Dr. Anthony Bonilla Nitrite Ql (U) Positive Abnormal NEGATIVE [facility] Comment on above: Performed By: #### C BC #### [facility] [address] [place] [address] Dr. Anthony Bonilla pH (U) 7.5 [pH] Normal 5-9 [facility] Comment on above: Performed By: #### C BC #### [facility] [address] [place] [address] Dr. Anthony Bonilla Protein (U) [Mass/Vol] 30 mg/dL Abnormal NEGAT JAMAR/ TRACE [facility] Comment on above: Performed By: #### C BC #### [facility] [address] [place] [address] Dr. Anthony Bonilla SPEC GRAVITY 1.020 Normal 1.005-<=1. 025 [facility] Comment on above: Performed By: #### C BC #### [facility] [address] [place] [address] Dr. Anthony Bonilla UR MICRO IND INDICATED Normal [facility] Comment on above: Performed By: #### C BC #### [facility] [address] [place] [address] Dr. Anthony Bonilla Urobilinogen Qn (U) 0.2 {Gen'U}/dL Normal 0.2 - 1. 0 [facility] Comment on above: Performed By: #### C BC #### [facility] [address] [place] [address] Dr. Anthony Bonilla URINE MICROSCOPIC ONLYon BACTERIA TRACE Abnormal NONE SEEN [facility] Comment on above: Performed By: #### C BC #### [facility] [address] [place] [address] Dr. Anthony Bonilla Bacteria identified Cx Nom (U) INDICATED Normal [facility] Comment on above: Performed By: #### C BC #### [facility] [address] [place] [address] Dr. Anthony Bonilla CAST NONE SEEN Normal NONE SEEN [facility] Comment on above: Performed By: #### C BC #### [facility] [address] [place] [address] Dr. Anthony Bonilla Crystals LM Nom (Urine sed) NONE SEEN Normal NONE SEEN [facility] Comment on above: Performed By: #### C BC #### [facility] [address] [place] [address] Dr. Anthony Bonilla Epithelial cells LM Ql (Urine sed) FEW Abnormal NONE SEEN /RARE [facility] Comment on above: Performed By: #### C BC #### [facility] [address] [place] [address] Dr. Anthony Bonilla MUCOUS NONE SEEN Normal NONE SEEN [facility] Comment on above: Performed By: #### C BC #### [facility] [address] [place] [address] Dr. Anthony Bonilla RBC 0-2 Normal 0-2 [facility] Comment on above: Performed By: #### C BC #### [facility] [address] [place] [address] Dr. Anthony Bonilla WBC 5-10 Abnormal NONE SEEN [facility] Comment on above: Performed By: #### C BC #### [facility] [address] [place] [address] Dr. Anthony Bonilla PRBC LEUKOREDUCEDon 11-20-19 PRBC LEUKOREDUCED Cross Match Result Compatible Unit Blood Type A Pos Unit Number [id number] Status Information Transfused Product ID Red Blood Cells Product Code [id number] Normal [facility] Comment on above: Performed By: #### P RBC #### [facility] [address] [place] [address] Dr. Anthony Bonilla CBC AUTO DIFFon 11-10-2021 BASO # 0.0 103/ul Normal 0.0-0.1 [facility] Comment on above: Performed By: #### C BC #### [facility] [address] [place] [address] Dr. Anthony Bonilla Basophils/100 WBC (Bld) 0.7 % Normal 0.2-2.0 [facility] Comment on above: Performed By: #### C BC #### [facility] [address] [place] [address] Dr. Anthony Bonilla EO # 0.2 103/ul Normal 0.0-0.7 [facility] Comment on above: Performed By: #### C BC #### [facility] [address] [place] [address] Dr. Anthony Bonilla Eosinophils/100 WBC (Bld) 2.7 % Normal 0.9-7.0 [facility] Comment on above: Performed By: #### C BC #### [facility] [address] [place] [address] Dr. Anthony Bonilla Erythrocyte distribution width (RBC) [Ratio] 16.3 % Critically high 11.0-15.0 [facility] Comment on above: Performed By: #### C BC #### [facility] [address] [place] [address] Dr. Anthony Bonilla Hematocrit (Bld) [Volume fraction] 29.0 % Critically low 36.0-48.0 [facility] Comment on above: Performed By: #### C BC #### [facility] [address] [place] [address] Dr. Anthony Bonilla Hemoglobin (Bld) [Mass/Vol] 9.4 g/dL Critically low 12.0-16.0 [facility] Comment on above: Performed By: #### C BC #### [facility] [address] [place] [address] Dr. Anthony Bonilla IG # 0.04 10e3/ul Critically high 0.00-0.03 [facility] Comment on above: Performed By: #### C BC #### [facility] [address] [place] [address] Dr. Anthony Bonilla IG % 0.7 % Critically high 0.0-0.5 [facility] Comment on above: Performed By: #### C BC #### [facility] [address] [place] [address] Dr. Anthony Bonilla LYMPH # 1.2 103/ul Normal 1.2-3.8 [facility] Comment on above: Performed By: #### C BC #### [facility] [address] [place] [address] Dr. Anthony Bonilla Lymphocytes/100 WBC (Bld) 21.5 % Normal 20.5-60.0 [facility] Comment on above: Performed By: #### C BC #### [facility] [address] [place] [address] Dr. Anthony Bonilla MANUAL DIFF REQ NO Normal [facility] Comment on above: Performed By: #### C BC #### [facility] [address] [place] [address] Dr. Anthony Bonilla MCH (RBC) [Entitic mass] 32.3 pg Normal 26.7-34.0 [facility] Comment on above: Performed By: #### C BC #### [facility] [address] [address] [address] Anthony Bonilla MCHC (RBC) [Mass/Vol] 32.4 g/dL Normal 29.9-35.2 [facility] Comment on above: Performed By: #### C BC #### [facility] [address] [address] [address] Anthony Bonilla MCV (RBC) [Entitic vol] 99.7 fL Critically high 81.0-99.0 [facility] Comment on above: Performed By: #### C BC #### [facility] [address] [address] [address] Anthony Bonilla MONO # 0.7 103/ul Normal 0.3-0.8 [facility] Comment on above: Performed By: #### C BC #### [facility] [address] [place] [address] Dr. Anthony Bonilla Monocytes/100 WBC (Bld) 12.6 % Critically high 1.7-12.0 [facility] Comment on above: Performed By: #### C BC #### [facility] [address] [place] [address] Dr. Anthony Bonilla NEUT # 3.4 103/ul Normal 1.4-6.5 [facility] Comment on above: Performed By: #### C BC #### [facility] [address] [place] [address] Dr. Anthony Bonilla Neutrophils/100 WBC (Bld) 61.8 % Normal 43.0-75.0 [facility] Comment on above: Performed By: #### C BC #### [facility] [address] [place] [address] Dr. Anthony Bonilla Platelet mean volume (Bld) [Entitic vol] 9.0 fL Critically low 9.5-13.5 [facility] Comment on above: Performed By: #### C BC #### [facility] [address] [place] [address] Dr. Anthony Bonilla PLT 429 103/ul Normal 150-450 [facility] Comment on above: Performed By: #### C BC #### [facility] [address] [address] [address] Anthony Bonilla RBC 2.91 106/ul Critically low 4.20-5.40 [facility] Comment on above: Performed By: #### C BC #### [facility] [address] [address] [address] Anhtony Bonilla WBC 5.5 103/ul Normal 4.0-11.0 [facility] Comment on above: Performed By: #### C BC #### [facility] [address] [address] [address] Anthony Bonilla PROF CHEM 8 (BAS METB)on Anion gap [Moles/Vol] 11.0 mmol/L Normal [facility] Comment on above: Performed By: #### B MP #### [facility] [address] [place] [address] Dr. Anthony Bonilla Calcium [Mass/Vol] 9.2 mg/dL Normal 8.5-10.1 [facility] Comment on above: Performed By: #### B MP #### [facility] [address] [address] [address] Anthony Bonilla Chloride [Moles/Vol] 107 mmol/L Normal 98-107 [facility] Comment on above: Performed By: #### B MP #### [facility] [address] [place] [address] Dr. Anthony Bonilla CO2 [Moles/Vol] 27.4 mmol/L Normal 21.0-32.0 [facility] Comment on above: Performed By: #### B MP #### [facility] [address] [place] [address] Dr. Anthony Bonilla Creatinine [Mass/Vol] 1.12 mg/dL Critically high 0.55-1.02 [facility] Comment on above: Performed By: #### B MP #### [facility] [address] [place] [address] Dr. Anthony Bonilla EGFR-AF [place] 56 mL/min/1.73m2 Critically low >=60 [facility] Comment on above: Performed By: #### B MP #### [facility] [address] [address] [address] Anthony Bonilla EGFR-NON AF [place] 46 mL/min/1.73m2 Critically low >=60 [facility] Comment on above: Performed By: #### B MP #### [facility] [address] [address] [address] Anthony Bonilla Glucose [Mass/Vol] 89 mg/dL Normal 74-106 [facility] Comment on above: Performed By: #### B MP #### [facility] [address] [address] [address] Anthony Bonilla Potassium [Moles/Vol] 4.4 mmol/L Normal 3.5-5.1 [facility] Comment on above: Performed By: #### B MP #### [facility] [address] [address] [address] Anthony Bonilla Sodium [Moles/Vol] 141 mmol/L Normal 136-145 [facility] Comment on above: Performed By: #### B MP #### [facility] [address] [address] [address] Anthony Bonilla Urea nitrogen [Mass/Vol] 18.0 mg/dL Normal 7.0-18.0 [facility] Comment on above: Performed By: #### B MP #### [facility] [address] [address] [address] Anthony Bonilla Urea nitrogen/Creatinine [Mass ratio] 16.1 mg/mg Normal [facility] Comment on above: Performed By: #### B MP #### [facility] [address] [address] [address] Anthony Bonilla CBC AUTO DIFFon 11-04-2021 BASO # 0.0 103/ul Normal 0.0-0.1 [facility] Comment on above: Performed By: #### C BC #### [facility] [address] [address] [address] Anthony Bonilla Basophils/100 WBC (Bld) 0.2 % Normal 0.2-2.0 [facility] Comment on above: Performed By: #### C BC #### [facility] [address] [address] [address] Anthony Bonilla EO # 0.1 103/ul Normal 0.0-0.7 [facility] Comment on above: Performed By: #### C BC #### [facility] [address] [place] [address] Dr. Anthony Bonilla Eosinophils/100 WBC (Bld) 0.8 % Critically low 0.9-7.0 [facility] Comment on above: Performed By: #### C BC #### [facility] [address] [place] [address] Dr. Anthony Bonilla Erythrocyte distribution width (RBC) [Ratio] 16.7 % Critically high 11.0-15.0 [facility] Comment on above: Performed By: #### C BC #### [facility] [address] [place] [address] Dr. Anthony Bonilla Hematocrit (Bld) [Volume fraction] 25.6 % Critically low 36.0-48.0 [facility] Comment on above: Performed By: #### C BC #### [facility] [address] [place] [address] Dr. Anthony Bonilla Hemoglobin (Bld) [Mass/Vol] 8.5 g/dL Critically low 12.0-16.0 [facility] Comment on above: Performed By: #### C BC #### [facility] [address] [place] [address] Dr. Anthony Bonilla IG # 0.05 10e3/ul Critically high 0.00-0.03 [facility] Comment on above: Performed By: #### C BC #### [facility] [address] [place] [address] Dr. Anthony Bonilla IG % 0.5 % Normal 0.0-0.5 [facility] Comment on above: Performed By: #### C BC #### [facility] [address] [place] [address] Dr. Anthony Bonilla LYMPH # 0.6 103/ul Critically low 1.2-3.8 [facility] Comment on above: Performed By: #### C BC #### [facility] [address] [address] [address] Anthony Bonilla Lymphocytes/100 WBC (Bld) 6.2 % Critically low 20.5-60.0 [facility] Comment on above: Performed By: #### C BC #### [facility] [address] [place] [address] Dr. Anthony Bonilla MANUAL DIFF REQ NO Normal [facility] Comment on above: Performed By: #### C BC #### [facility] [address] [place] [address] Dr. Anthony Bonilla MCH (RBC) [Entitic mass] 31.6 pg Normal 26.7-34.0 [facility] Comment on above: Performed By: #### C BC #### [facility] [address] [place] [address] Dr. Anthony Bonilla MCHC (RBC) [Mass/Vol] 33.2 g/dL Normal 29.9-35.2 [facility] Comment on above: Performed By: #### C BC #### [facility] [address] [place] [address] Dr. Anthony Bonilla MCV (RBC) [Entitic vol] 95.2 fL Normal 81.0-99.0 [facility] Comment on above: Performed By: #### C BC #### [facility] [address] [place] [address] Dr. Anthony Bonilla MONO # 0.6 103/ul Normal 0.3-0.8 [facility] Comment on above: Performed By: #### C BC #### [facility] [address] [place] [address] Dr. Anthony Bonilla Monocytes/100 WBC (Bld) 6.1 % Normal 1.7-12.0 [facility] Comment on above: Performed By: #### C BC #### [facility] [address] [place] [address] Dr. Anthony Bonilla NEUT # 8.8 103/ul Critically high 1.4-6.5 [facility] Comment on above: Performed By: #### C BC #### [facility] [address] [place] [address] Dr. Anthony Bonilla Neutrophils/100 WBC (Bld) 86.2 % Critically high 43.0-75.0 [facility] Comment on above: Performed By: #### C BC #### [facility] [address] [place] [address] Dr. Anthony Bonilla Platelet mean volume (Bld) [Entitic vol] 9.8 fL Normal 9.5-13.5 [facility] Comment on above: Performed By: #### C BC #### [facility] [address] [place] [address] Dr. Anthony Bonilla PLT 156 103/ul Normal 150-450 [facility] Comment on above: Performed By: #### C BC #### [facility] [address] [place] [address] Dr. Anthony Bonilla RBC 2.69 106/ul Critically low 4.20-5.40 [facility] Comment on above: Performed By: #### C BC #### [facility] [address] [place] [address] Dr. Anthony Bonilla WBC 10.3 103/ul Normal 4.0-11.0 [facility] Comment on above: Performed By: #### C BC #### [facility] [address] [place] [address] Dr. Anthony Bonilla CULTURE URINEon 11-04-2021 CULTURE [...] Trimethoprim/Sulfametho xazole <=20 S F Normal [facility] Comment on above: Performed By: #### U RCX #### [facility] [address] [address] [address] Anthony Bonilla PROF CHEM 8 (BAS METB)on Anion gap [Moles/Vol] 12.9 mmol/L Normal [facility] Comment on above: Performed By: #### U RCX #### [facility] [address] [address] [address] Anthony Bonilla Calcium [Mass/Vol] 8.6 mg/dL Normal 8.5-10.1 [facility] Comment on above: Performed By: #### U RCX #### [facility] [address] [address] [address] Anthony Bonilla Chloride [Moles/Vol] 108 mmol/L Critically high 98-107 [facility] Comment on above: Performed By: #### U RCX #### [facility] [address] [place] [address] Dr. Anthony Bonilla CO2 [Moles/Vol] 23.1 mmol/L Normal 21.0-32.0 [facility] Comment on above: Performed By: #### U RCX #### [facility] [address] [address] [address] Anthony Bonilla Creatinine [Mass/Vol] 0.98 mg/dL Normal 0.55-1.02 [facility] Comment on above: Performed By: #### U RCX #### [facility] [address] [address] [address] Anthony Bonilla EGFR-AF [place] >60 Normal >=60 [facility] Comment on above: Performed By: #### U RCX #### [facility] [address] [address] [address] Anthony Bonilla EGFR-NON AF [place] 54 mL/min/1.73m2 Critically low >=60 [facility] Comment on above: Performed By: #### U RCX #### [facility] [address] [address] [address] Anthony Bonilla Glucose [Mass/Vol] 86 mg/dL Normal 74-106 [facility] Comment on above: Performed By: #### U RCX #### [facility] [address] [address] [address] Anthony Bonilla Potassium [Moles/Vol] 4.0 mmol/L Normal 3.5-5.1 [facility] Comment on above: Performed By: #### U RCX #### [facility] [address] [place] [address] Dr. Anthony Bonilla Sodium [Moles/Vol] 140 mmol/L Normal 136-145 [facility] Comment on above: Performed By: #### U RCX #### [facility] [address] [place] [address] Dr. Anthony Bonilla Urea nitrogen [Mass/Vol] 31.0 mg/dL Critically high 7.0-18.0 [facility] Comment on above: Performed By: #### U RCX #### [facility] [address] [place] [address] Dr. Anthony Bonilla Urea nitrogen/Creatinine [Mass ratio] 31.6 mg/mg Normal [facility] Comment on above: Performed By: #### U RCX #### [facility] [address] [place] [address] Dr. Anthony Bonilla CBC AUTO DIFFon 11-03-2021 BASO # 0.0 103/ul Normal 0.0-0.1 [facility] Comment on above: Performed By: #### C BC #### [facility] [address] [place] [address] Dr. Anthony Bonilla Basophils/100 WBC (Bld) 0.3 % Normal 0.2-2.0 [facility] Comment on above: Performed By: #### C BC #### [facility] [address] [place] [address] Dr. Anthony Bonilla EO # 0.1 103/ul Normal 0.0-0.7 [facility] Comment on above: Performed By: #### C BC #### [facility] [address] [place] [address] Dr. Anthony Bonilla Eosinophils/100 WBC (Bld) 0.6 % Critically low 0.9-7.0 [facility] Comment on above: Performed By: #### C BC #### [facility] [address] [place] [address] Dr. Anthony Bonilla Erythrocyte distribution width (RBC) [Ratio] 14.0 % Normal 11.0-15.0 [facility] Comment on above: Performed By: #### C BC #### [facility] [address] [place] [address] Dr. Anthony Bonilla Hematocrit (Bld) [Volume fraction] 23.1 % Critically low 36.0-48.0 [facility] Comment on above: Result Comment: Flui ds given Performed By: #### C BC #### [facility] [address] [place] [address] Dr. Anthony Bonilla Hemoglobin (Bld) [Mass/Vol] 7.6 g/dL Critically low 12.0-16.0 [facility] Comment on above: Performed By: #### C BC #### [facility] [address] [place] [address] Dr. Anthony Bonilla IG # 0.07 10e3/ul Critically high 0.00-0.03 [facility] Comment on above: Performed By: #### C BC #### [facility] [address] [place] [address] Dr. Anthony Bonilla IG % 0.6 % Critically high 0.0-0.5 [facility] Comment on above: Performed By: #### C BC #### [facility] [address] [place] [address] Dr. Anthony Bonilla LYMPH # 0.7 103/ul Critically low 1.2-3.8 [facility] Comment on above: Performed By: #### C BC #### [facility] [address] [place] [address] Dr. Anthony Bonilla Lymphocytes/100 WBC (Bld) 5.7 % Critically low 20.5-60.0 [facility] Comment on above: Performed By: #### C BC #### [facility] [address] [place] [address] Dr. Anthony Bonilla MANUAL DIFF REQ NO Normal [facility] Comment on above: Performed By: #### C BC #### [facility] [address] [address] [address] Anthony Bonilla MCH (RBC) [Entitic mass] 32.6 pg Normal 26.7-34.0 [facility] Comment on above: Performed By: #### C BC #### [facility] [address] [address] [address] Anthony Bonilla MCHC (RBC) [Mass/Vol] 32.9 g/dL Normal 29.9-35.2 [facility] Comment on above: Performed By: #### C BC #### [facility] [address] [address] [address] Anthony Bonilla MCV (RBC) [Entitic vol] 99.1 fL Critically high 81.0-99.0 [facility] Comment on above: Performed By: #### C BC #### [facility] [address] [place] [address] Dr. Anthony Bonilla MONO # 0.8 103/ul Normal 0.3-0.8 [facility] Comment on above: Performed By: #### C BC #### [facility] [address] [place] [address] Dr. Anthony Bonilla Monocytes/100 WBC (Bld) 6.8 % Normal 1.7-12.0 [facility] Comment on above: Performed By: #### C BC #### [facility] [address] [place] [address] Dr. Anthony Bonilla NEUT # 9.8 103/ul Critically high 1.4-6.5 [facility] Comment on above: Performed By: #### C BC #### [facility] [address] [place] [address] Dr. Anthony Bonilla Neutrophils/100 WBC (Bld) 86.0 % Critically high 43.0-75.0 [facility] Comment on above: Performed By: #### C BC #### [facility] [address] [place] [address] Dr. Anthony Bonilla Platelet mean volume (Bld) [Entitic vol] 9.5 fL Normal 9.5-13.5 [facility] Comment on above: Performed By: #### C BC #### [facility] [address] [address] [address] Anthony Bonilla PLT 160 103/ul Normal 150-450 [facility] Comment on above: Performed By: #### C BC #### [facility] [address] [address] [address] Anthony Bonilla RBC 2.33 106/ul Critically low 4.20-5.40 [facility] Comment on above: Performed By: #### C BC #### [facility] [address] [address] [address] Anthony Bonilla WBC 11.4 103/ul Critically high 4.0-11.0 [facility] Comment on above: Performed By: #### C BC #### [facility] [address] [place] [address] Dr. Anthony Bonilla HEMOGLOBIN AND HEMATOCRITon 11-03-2021 Hematocrit (Bld) [Volume fraction] 27.0 % Critically low 36.0-48.0 [facility] Comment on above: Performed By: #### U RCX #### [facility] [address] [address] [address] Anthony Bonilla Hemoglobin (Bld) [Mass/Vol] 9.1 g/dL Critically low 12.0-16.0 [facility] Comment on above: Performed By: #### U RCX #### [facility] [address] [address] [address] Anthony Bonilla OCC BLD IMMUNO SCREENon 10-10 OCCULT BLOOD Positive Abnormal NEGATIVE [facility] Comment on above: Performed By: #### C BC #### [facility] [address] [address] [address] Anthony Bonilla PROF CHEM 8 (BAS METB)on Anion gap [Moles/Vol] 10.7 mmol/L Normal [facility] Comment on above: Performed By: #### C BC #### [facility] [address] [address] [address] Anthony Bonilla Calcium [Mass/Vol] 8.6 mg/dL Normal 8.5-10.1 [facility] Comment on above: Performed By: #### C BC #### [facility] [address] [place] [address] Dr. Anthony Bonilla Chloride [Moles/Vol] 107 mmol/L Normal 98-107 [facility] Comment on above: Performed By: #### C BC #### [facility] [address] [address] [address] Anthony Bonilla CO2 [Moles/Vol] 24.4 mmol/L Normal 21.0-32.0 [facility] Comment on above: Performed By: #### C BC #### [facility] [address] [place] [address] Dr. Anthony Bonilla Creatinine [Mass/Vol] 0.98 mg/dL Normal 0.55-1.02 [facility] Comment on above: Performed By: #### C BC #### [facility] [address] [place] [address] Dr. Anthony Bonilla EGFR-AF [place] >60 Normal >=60 [facility] Comment on above: Performed By: #### C BC #### [facility] [address] [place] [address] Dr. Anthony Bonilla EGFR-NON AF [place] 54 mL/min/1.73m2 Critically low >=60 [facility] Comment on above: Performed By: #### C BC #### [facility] [address] [place] [address] Dr. Anthony Bonilla Glucose [Mass/Vol] 98 mg/dL Normal 74-106 [facility] Comment on above: Performed By: #### C BC #### [facility] [address] [place] [address] Dr. Anthony Bonilla Potassium [Moles/Vol] 4.1 mmol/L Normal 3.5-5.1 [facility] Comment on above: Performed By: #### C BC #### [facility] [address] [place] [address] Dr. Anthony Bonilla Sodium [Moles/Vol] 138 mmol/L Normal 136-145 [facility] Comment on above: Performed By: #### C BC #### [facility] [address] [address] [address] Anthony Bonilla Urea nitrogen [Mass/Vol] 43.0 mg/dL Critically high 7.0-18.0 [facility] Comment on above: Performed By: #### C BC #### [facility] [address] [address] [address] Anthony Bonilla Urea nitrogen/Creatinine [Mass ratio] 43.9 mg/mg Normal [facility] Comment on above: Performed By: #### C BC #### [facility] [address] [place] [address] Dr. Anthony Bonilla TYPE AND SCREENon 11-03-2021 TYPE AND SCREEN Negative Normal [facility] Comment on above: Performed By: #### C BC #### [facility] [address] [place] [address] Dr. Anthony Bonilla CBC AUTO DIFFon 11-02-2021 BASO # 0.0 103/ul Normal 0.0-0.1 [facility] Comment on above: Performed By: #### U RCX #### [facility] [address] [place] [address] Dr. Anthony Bonilla Basophils/100 WBC (Bld) 0.3 % Normal 0.2-2.0 [facility] Comment on above: Performed By: #### U RCX #### [facility] [address] [place] [address] Dr. Anthony Bonilla EO # 0.0 103/ul Normal 0.0-0.7 [facility] Comment on above: Performed By: #### U RCX #### [facility] [address] [place] [address] Dr. Anthony Bonilla Eosinophils/100 WBC (Bld) 0.1 % Critically low 0.9-7.0 [facility] Comment on above: Performed By: #### U RCX #### [facility] [address] [place] [address] Dr. Anthony Bonilla Erythrocyte distribution width (RBC) [Ratio] 13.9 % Normal 11.0-15.0 [facility] Comment on above: Performed By: #### U RCX #### [facility] [address] [address] [address] Anthony Bonilla Hematocrit (Bld) [Volume fraction] 31.8 % Critically low 36.0-48.0 [facility] Comment on above: Performed By: #### U RCX #### [facility] [address] [address] [address] Anthony Bonilla Hemoglobin (Bld) [Mass/Vol] 10.5 g/dL Critically low 12.0-16.0 [facility] Comment on above: Performed By: #### U RCX #### [facility] [address] [address] [address] Anthony Bonilla IG # 0.07 10e3/ul Critically high 0.00-0.03 [facility] Comment on above: Performed By: #### U RCX #### [facility] [address] [address] [address] Anthony Bonilla IG % 0.5 % Normal 0.0-0.5 [facility] Comment on above: Performed By: #### U RCX #### [facility] [address] [address] [address] Anthony Bonilla LYMPH # 0.9 103/ul Critically low 1.2-3.8 [facility] Comment on above: Performed By: #### U RCX #### [facility] [address] [address] [address] Anthony Bonilla Lymphocytes/100 WBC (Bld) 6.1 % Critically low 20.5-60.0 [facility] Comment on above: Performed By: #### U RCX #### [facility] [address] [address] [address] Anthony Bonilla MANUAL DIFF REQ NO Normal [facility] Comment on above: Performed By: #### U RCX #### [facility] [address] [place] [address] Dr. Anthony Bonilla MCH (RBC) [Entitic mass] 32.7 pg Normal 26.7-34.0 [facility] Comment on above: Performed By: #### U RCX #### [facility] [address] [address] [address] Anthony Bonilla MCHC (RBC) [Mass/Vol] 33.0 g/dL Normal 29.9-35.2 [facility] Comment on above: Performed By: #### U RCX #### [facility] [address] [address] [address] Anthony Bonilla MCV (RBC) [Entitic vol] 99.1 fL Critically high 81.0-99.0 [facility] Comment on above: Performed By: #### U RCX #### [facility] [address] [address] [address] Anthony Bonilla MONO # 1.0 103/ul Critically high 0.3-0.8 [facility] Comment on above: Performed By: #### U RCX #### [facility] [address] [place] [address] Dr. Anthony Bonilla Monocytes/100 WBC (Bld) 6.8 % Normal 1.7-12.0 [facility] Comment on above: Performed By: #### U RCX #### [facility] [address] [place] [address] Dr. Anthony Bonilla NEUT # 12.1 103/ul Critically high 1.4-6.5 [facility] Comment on above: Performed By: #### U RCX #### [facility] [address] [place] [address] Dr. Anthony Bonilla Neutrophils/100 WBC (Bld) 86.2 % Critically high 43.0-75.0 [facility] Comment on above: Performed By: #### U RCX #### [facility] [address] [address] [address] Anthony Bonilla Platelet mean volume (Bld) [Entitic vol] 9.8 fL Normal 9.5-13.5 [facility] Comment on above: Performed By: #### U RCX #### [facility] [address] [place] [address] Dr. Anthony Bonilla PLT 175 103/ul Normal 150-450 [facility] Comment on above: Performed By: #### U RCX #### [facility] [address] [address] [address] Anthony Bonilla RBC 3.21 106/ul Critically low 4.20-5.40 [facility] Comment on above: Performed By: #### U RCX #### [facility] [address] [address] [address] Anthony Bonilla WBC 14.0 103/ul Critically high 4.0-11.0 [facility] Comment on above: Performed By: #### U RCX #### [facility] [address] [address] [address] HEAD WO CONon [...] HERNANDO HAMLIN Date: 2021-11-01 22:36 Normal [facility] PROF CHEM 8 (BAS METB)on Anion gap [Moles/Vol] 12.2 mmol/L Normal [facility] Comment on above: Performed By: #### C BC #### [facility] [address] [address] [address] Anthony Bonilla Calcium [Mass/Vol] 8.7 mg/dL Normal 8.5-10.1 [facility] Comment on above: Performed By: #### C BC #### [facility] [address] [address] [address] Anthony Bonilla Chloride [Moles/Vol] 103 mmol/L Normal 98-107 [facility] Comment on above: Performed By: #### C BC #### [facility] [address] [address] [address] Anthony Bonilla CO2 [Moles/Vol] 25.7 mmol/L Normal 21.0-32.0 [facility] Comment on above: Performed By: #### C BC #### [facility] [address] [address] [address] Anthony Bonilla Creatinine [Mass/Vol] 1.08 mg/dL Critically high 0.55-1.02 [facility] Comment on above: Performed By: #### C BC #### [facility] [address] [address] [address] Anthony Bonilla EGFR-AF [place] 58 mL/min/1.73m2 Critically low >=60 [facility] Comment on above: Performed By: #### C BC #### [facility] [address] [address] [address] Anthony Bonilla EGFR-NON AF [place] 48 mL/min/1.73m2 Critically low >=60 [facility] Comment on above: Performed By: #### C BC #### [facility] [address] [address] [address] Anthony Bonilla Glucose [Mass/Vol] 84 mg/dL Normal 74-106 [facility] Comment on above: Performed By: #### C BC #### [facility] [address] [address] [address] Anthony Bonilla Potassium [Moles/Vol] 4.9 mmol/L Normal 3.5-5.1 [facility] Comment on above: Performed By: #### C BC #### [facility] [address] [address] [address] Anthony Bonilla Sodium [Moles/Vol] 136 mmol/L Normal 136-145 [facility] Comment on above: Performed By: #### C BC #### [facility] [address] [address] [address] Anthony Bonilla Urea nitrogen [Mass/Vol] 33.0 mg/dL Critically high 7.0-18.0 [facility] Comment on above: Performed By: #### C BC #### [facility] [address] [address] [address] Anthony Bonilla Urea nitrogen/Creatinine [Mass ratio] 30.6 mg/mg Normal [facility] Comment on above: Performed By: #### C BC #### [facility] [address] [address] [address] Anthony Bonilla XR CHEST 1 Von [...] GIANA HOLLY Date: 2021-11-01 22:05 Normal [facility] CARDIAC DARWIN ADMITon 11-01- 022 CK [Catalytic activity/Vol] 92 U/L Normal 26-192 [facility] Comment on above: Performed By: #### C BC #### [facility] [address] [place] [address] Dr. Anthony Bonilla CK.MB [Mass/Vol] 1.73 ng/mL Normal <=3.60 [facility] Comment on above: Performed By: #### C BC #### [facility] [address] [place] [address] Dr. Anthony Bonilla HSTROP 20.0 pg/mL Normal 4.0-51.3 [facility] Comment on above: Result Comment: CUT- OFF POINTS HAVE BEEN ESTABLISHED BASED ON THE FOURTH UNIVERSAL DEFINITIONS OF MYOCARDIAL INFARCTION. THE UPPER REFERENCE LIMIT (URL) OF TROPONIN, DEFINED THE 99TH PERCENTILE OF cTnI DISTRIBUTION IN A REFERENCE POPULATION, HAS BEEN CONFIRMED THE DECISION THRESHOLD FOR [place] DIAGNOSIS. Performed By: #### C BC #### [facility] [address] [place] [address] Dr. Anthony Bonilla CANDIDA 58 ng/mL Normal 9-82 [facility] Comment on above: Performed By: #### C BC #### [facility] [address] [place] [address] Dr. Anthony Bonilla CBC AUTO DIFFon 11-01-2021 BASO # 0.0 103/ul Normal 0.0-0.1 [facility] Comment on above: Performed By: #### U RCX #### [facility] [address] [place] [address] Dr. Anthony Bonilla Basophils/100 WBC (Bld) 0.2 % Normal 0.2-2.0 [facility] Comment on above: Performed By: #### U RCX #### [facility] [address] [place] [address] Dr. Anthony Bonilla EO # 0.0 103/ul Normal 0.0-0.7 [facility] Comment on above: Performed By: #### U RCX #### [facility] [address] [place] [address] Dr. Anthony Bonilla Eosinophils/100 WBC (Bld) 0.0 % Critically low 0.9-7.0 [facility] Comment on above: Performed By: #### U RCX #### [facility] [address] [place] [address] Dr. Anthony Bonilla Erythrocyte distribution width (RBC) [Ratio] 14.1 % Normal 11.0-15.0 [facility] Comment on above: Performed By: #### U RCX #### [facility] [address] [place] [address] Dr. Anthony Bonilla Hematocrit (Bld) [Volume fraction] 36.0 % Normal 36.0-48.0 [facility] Comment on above: Performed By: #### U RCX #### [facility] [address] [place] [address] Dr. Anthony Bonilla Hemoglobin (Bld) [Mass/Vol] 12.1 g/dL Normal 12.0-16.0 [facility] Comment on above: Performed By: #### U RCX #### [facility] [address] [place] [address] Dr. Anthony Bonilla IG # 0.11 10e3/ul Critically high 0.00-0.03 [facility] Comment on above: Performed By: #### U RCX #### [facility] [address] [place] [address] Dr. Anthony Bonilla IG % 0.5 % Normal 0.0-0.5 [facility] Comment on above: Performed By: #### U RCX #### [facility] [address] [address] [address] Anthony Bonilla LYMPH # 0.7 103/ul Critically low 1.2-3.8 [facility] Comment on above: Performed By: #### U RCX #### [facility] [address] [place] [address] Dr. Anthony Bonilla Lymphocytes/100 WBC (Bld) 3.2 % Critically low 20.5-60.0 [facility] Comment on above: Performed By: #### U RCX #### [facility] [address] [place] [address] Dr. Anthony Bonilla MANUAL DIFF REQ NO Normal [facility] Comment on above: Performed By: #### U RCX #### [facility] [address] [place] [address] Dr. Anthony Bonilla MCH (RBC) [Entitic mass] 33.0 pg Normal 26.7-34.0 [facility] Comment on above: Performed By: #### U RCX #### [facility] [address] [place] [address] Dr. Anthony Bonilla MCHC (RBC) [Mass/Vol] 33.6 g/dL Normal 29.9-35.2 [facility] Comment on above: Performed By: #### U RCX #### [facility] [address] [place] [address] Dr. Anthony Bonilla MCV (RBC) [Entitic vol] 98.1 fL Normal 81.0-99.0 [facility] Comment on above: Performed By: #### U RCX #### [facility] [address] [place] [address] Dr. Anthony Bonilla MONO # 1.1 103/ul Critically high 0.3-0.8 [facility] Comment on above: Performed By: #### U RCX #### [facility] [address] [place] [address] Dr. Anthony Bonilla Monocytes/100 WBC (Bld) 4.8 % Normal 1.7-12.0 [facility] Comment on above: Performed By: #### U RCX #### [facility] [address] [place] [address] Dr. Anthony Bonilla NEUT # 20.3 103/ul Critically high 1.4-6.5 [facility] Comment on above: Performed By: #### U RCX #### [facility] [address] [place] [address] Dr. Anthony Bonilla Neutrophils/100 WBC (Bld) 91.3 % Critically high 43.0-75.0 [facility] Comment on above: Performed By: #### U RCX #### [facility] [address] [place] [address] Dr. Anthony Bonilla Platelet mean volume (Bld) [Entitic vol] 10.8 fL Normal 9.5-13.5 [facility] Comment on above: Performed By: #### U RCX #### [facility] [address] [place] [address] Dr. Anthony Bonilla PLT 179 103/ul Normal 150-450 [facility] Comment on above: Performed By: #### U RCX #### [facility] [address] [place] [address] Dr. Anthony Bonilla RBC 3.67 106/ul Critically low 4.20-5.40 [facility] Comment on above: Performed By: #### U RCX #### [facility] [address] [place] [address] Dr. Anthony Bonilla WBC 22.2 103/ul Critically high 4.0-11.0 [facility] Comment on above: Performed By: #### U RCX #### [facility] [address] [place] [address] Dr. Anthony Bonilla CULTURE BLOODon 11-01-2021 Microscopic examination of blood, culture Culture Observations: NO GROWTH AT 5 DAYS. Normal [facility] Comment on above: Performed By: #### B [id number] #### [facility] [address] [place] [address] Dr. Anthony Bonilla Performed By: #### C BC #### [facility] [address] [place] [address] Dr. Anthony Bonilla Covid-19 PCR ([facility])on 10-10 SARS-CoV-2 (COVID-19) RNA OH+probe Ql (Unsp spec) Detected Critically abnormal NOT DETECTED [facility] Comment on above: Result Comment: This test is not yet approved or cleared by the [place] FDA. When there are no FDA-approved or cleared tests available, and other criteria are met, FDA can make tests available under an emergency access mechanism called an Emergency Use Authorization (EUA). The EUA for this test is supported by the [place] of Health and Human Service's declaration that [...] used). Performed By: #### C BC #### [facility] [address] [place] [address] Dr. Anthony Bonilla ER URINE PROFILEon Bilirubin Ql (U) Negative Normal NEGATIVE [facility] Comment on above: Performed By: #### U RCX #### [facility] [address] [place] [address] Dr. Antohny Bonilla Clarity (U) CLEAR Normal CLEAR [facility] Comment on above: Performed By: #### U RCX #### [facility] [address] [place] [address] Dr. Anthony Bonilla Color (U) LT. YELLOW Normal YELLOW [facility] Comment on above: Performed By: #### U RCX #### [facility] [address] [place] [address] Dr. Anthony BANGURA A micrscopic examination will be performed if indicated. Normal [facility] Comment on above: Performed By: #### U RCX #### [facility] [address] [place] [address] Dr. Anthony Bonilla Glucose Ql (U) Negative Normal NEGATIVE [facility] Comment on above: Performed By: #### U RCX #### [facility] [address] [address] [address] Anthony Bonilla Hemoglobin Ql (U) TRACE-INTACT Abnormal NEGATIVE [facility] Comment on above: Performed By: #### U RCX #### [facility] [address] [place] [address] Dr. Anthony Bonilla Ketones Ql (U) Negative Normal NEGATIVE [facility] Comment on above: Performed By: #### U RCX #### [facility] [address] [place] [address] Dr. Anthony Bonilla LEUKOCYTES Negative Normal NEGATIVE [facility] Comment on above: Performed By: #### U RCX #### [facility] [address] [place] [address] Dr. Anthony Bonilla Nitrite Ql (U) Negative Normal NEGATIVE [facility] Comment on above: Performed By: #### U RCX #### [facility] [address] [place] [address] Dr. Anthony Bonilla pH (U) 6.0 [pH] Normal 5-9 [facility] Comment on above: Performed By: #### U RCX #### [facility] [address] [place] [address] Dr. Anthony Bonilla SPEC GRAVITY 1.020 Normal 1.005-<=1. 025 [facility] Comment on above: Performed By: #### U RCX #### [facility] [address] [place] [address] Dr. Anthony Bonilla UA PROTEIN Negative Normal NEGATIVE/ TRACE [facility] Comment on above: Performed By: #### U RCX #### [facility] [address] [place] [address] Dr. Anthony Bonilla UR MICRO IND INDICATED Normal [facility] Comment on above: Performed By: #### U RCX #### [facility] [address] [place] [address] Dr. Anthony Bonilla Urobilinogen Qn (U) 1.0 {Gen'U}/dL Normal 0.2 - 1. 0 [facility] Comment on above: Performed By: #### U RCX #### [facility] [address] [place] [address] Dr. Anthony Bonilla LACTATE/LACTIC ACIDon 2021 Lactate [Moles/Vol] 1.6 mmol/L Normal 0.4-1.9 [facility] Comment on above: Performed By: #### C BC #### [facility] [address] [place] [address] Dr. Anthony Bonilla PROF 14(COMP METB)on 022 Albumin [Mass/Vol] 3.2 g/dL Critically low 3.4-5.0 [facility] Comment on above: Performed By: #### C BC #### [facility] [address] [place] [address] Dr. Anthony Bonilla Albumin/Globulin [Mass ratio] 0.9 {ratio} Normal [facility] Comment on above: Performed By: #### C BC #### [facility] [address] [place] [address] Dr. Anthony Bonilla ALP [Catalytic activity/Vol] 26 U/L Critically low 46-116 [facility] Comment on above: Performed By: #### C BC #### [facility] [address] [place] [address] Dr. Anthony Bonilla ALT [Catalytic activity/Vol] 32 U/L Normal 14-59 [facility] Comment on above: Performed By: #### C BC #### [facility] [address] [place] [address] Dr. Anthony Bonilla Anion gap [Moles/Vol] 11.5 mmol/L Normal [facility] Comment on above: Performed By: #### C BC #### [facility] [address] [place] [address] Dr. Anthony Bonilla AST [Catalytic activity/Vol] 16 U/L Normal 15-37 [facility] Comment on above: Performed By: #### C BC #### [facility] [address] [address] [address] Anthony Bonilla Bilirubin [Mass/Vol] 1.2 mg/dL Critically high 0.2-1.0 [facility] Comment on above: Performed By: #### C BC #### [facility] [address] [address] [address] Anthony Bonilla Calcium [Mass/Vol] 9.0 mg/dL Normal 8.5-10.1 [facility] Comment on above: Performed By: #### C BC #### [facility] [address] [place] [address] Dr. Anthony Bonilla Chloride [Moles/Vol] 102 mmol/L Normal 98-107 [facility] Comment on above: Performed By: #### C BC #### [facility] [address] [address] [address] Anthony Bonilla CO2 [Moles/Vol] 25.2 mmol/L Normal 21.0-32.0 [facility] Comment on above: Performed By: #### C BC #### [facility] [address] [place] [address] Dr. Anthony Bonilla Creatinine [Mass/Vol] 1.25 mg/dL Critically high 0.55-1.02 [facility] Comment on above: Performed By: #### C BC #### [facility] [address] [place] [address] Dr. Anthony Bonilla EGFR-AF [place] 49 mL/min/1.73m2 Critically low >=60 [facility] Comment on above: Performed By: #### C BC #### [facility] [address] [place] [address] Dr. Anthony Bonilla EGFR-NON AF [place] 41 mL/min/1.73m2 Critically low >=60 [facility] Comment on above: Performed By: #### C BC #### [facility] [address] [place] [address] Dr. Anthony Bonilla Globulin (S) [Mass/Vol] 3.4 g/dL Normal [facility] Comment on above: Performed By: #### C BC #### [facility] [address] [place] [address] Dr. Anthony Bonilla Glucose [Mass/Vol] 102 mg/dL Normal 74-106 [facility] Comment on above: Performed By: #### C BC #### [facility] [address] [place] [address] Dr. Anthony Bonilla Potassium [Moles/Vol] 4.7 mmol/L Normal 3.5-5.1 [facility] Comment on above: Performed By: #### C BC #### [facility] [address] [place] [address] Dr. Anthony Bonilla Protein [Mass/Vol] 6.6 g/dL Normal 6.4-8.2 [facility] Comment on above: Performed By: #### C BC #### [facility] [address] [place] [address] Dr. Anthony Bonilla Sodium [Moles/Vol] 134 mmol/L Critically low 136-145 [facility] Comment on above: Performed By: #### C BC #### [facility] [address] [place] [address] Dr. Anthony Bonilla Urea nitrogen [Mass/Vol] 33.0 mg/dL Critically high 7.0-18.0 [facility] Comment on above: Performed By: #### C BC #### [facility] [address] [place] [address] Dr. Anthony Bonilla Urea nitrogen/Creatinine [Mass ratio] 26.4 mg/mg Normal [facility] Comment on above: Performed By: #### C BC #### [facility] [address] [place] [address] Dr. Anthony Bonilla PROTIMEon 11-01-2021 INR Coag (PPP) [Relative time] 0.97 {INR} Normal [facility] Comment on above: Performed By: #### U RCX #### [facility] [address] [place] [address] Dr. Anthony Bonilla INR GUIDELINES SEE BELOW Normal [facility] Comment on above: Result Comment: MEGAN RED INR: 2.0 - 3.0 CONDITIONS NOT LISTED BELOW 2.5 - 3.5 FOR PROSTHETIC HEART VALVE REPLACEMENT 2.5 - 3.5 RECURRENT THROMBOSIS Performed By: #### U RCX #### [facility] [address] [place] [address] Dr. Anthony Bonilla PT Coag (PPP) [Time] 10.5 s Normal 9.0-11.6 [facility] Comment on above: Performed By: #### U RCX #### [facility] [address] [place] [address] Dr. Anthony Bonilla PTTon 11-01-2021 aPTT Coag (Bld) [Time] 27.8 s Normal 22.3-36.2 [facility] Comment on above: Performed By: #### U RCX #### [facility] [address] [place] [address] Dr. Anthony Bonilla TSHon 11-01-2021 TSH 1.011 uIU/mL Normal 0.358-3.74 0 [facility] Comment on above: Performed By: #### C BC #### [facility] [address] [place] [address] Dr. Anthony Bonilla URINE MICROSCOPIC ONLYon BACTERIA LARGE Abnormal NONE SEEN [facility] Comment on above: Performed By: #### U RCX #### [facility] [address] [place] [address] Dr. Anthony Bonilla Bacteria identified Cx Nom (U) INDICATED Normal [facility] Comment on above: Performed By: #### U RCX #### [facility] [address] [place] [address] Dr. Anthony Bonilla CAST NONE SEEN Normal NONE SEEN [facility] Comment on above: Performed By: #### U RCX #### [facility] [address] [place] [address] Dr. Anthony Bonilla Crystals LM Nom (Urine sed) NONE SEEN Normal NONE SEEN [facility] Comment on above: Performed By: #### U RCX #### [facility] [address] [place] [address] Dr. Anthony Bonilla Epithelial cells LM Ql (Urine sed) FEW Abnormal NONE SEEN /RARE [facility] Comment on above: Performed By: #### U RCX #### [facility] [address] [place] [address] Dr. Anthony Bonilla MUCOUS NONE SEEN Normal NONE SEEN [facility] Comment on above: Performed By: #### U RCX #### [facility] [address] [place] [address] Dr. Anthony Bonilla RBC 2-5 Abnormal 0-2 [facility] Comment on above: Performed By: #### U RCX #### [facility] [address] [place] [address] Dr. Anthony Bonilla WBC 0-2 Abnormal NONE SEEN [facility] Comment on above: Performed By: #### U RCX #### [facility] [address] [place] [address] Dr. Anthony Bonilla Covid-19 PCR ([facility])on SARS-CoV-2 (COVID-19) RNA OH+probe Ql (Unsp spec) Detected Critically abnormal NOT DETECTED [facility] Comment on above: Result Comment: This test is not yet approved or cleared by the [place] FDA. When there are no FDA-approved or cleared tests available, and other criteria are met, FDA can make tests available under an emergency access mechanism called an Emergency Use Authorization (EUA). The EUA for this test is supported by the [place] of Health and Human Service's declaration that [...] used). Performed By: #### C BC #### [facility] [address] [place] [address] Dr. Anthony Bonilla Covid-19 PCR ([facility])on SARS-CoV-2 (COVID-19) RNA OH+probe Ql (Unsp spec) Not detected Normal NOT DETECTED [facility] Comment on above: Result Comment: This test is not yet approved or cleared by the [place] FDA. When there are no FDA-approved or cleared tests available, and other criteria are met, FDA can make tests available under an emergency access mechanism called an Emergency Use Authorization (EUA). The EUA for this test is supported by the [place] of Health and Human Service's (HHS's) declaration [...] SARS-CoV-2. Performed By: #### U RCX #### [facility] [address] [place] [address] Dr. 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 Based on [...] timely attention to this matter. Ambar Manley Access Consultant Ext [id number] [Electronically Signed on: 10/18/2019 21:40 EDT] Mi Licea DO [Verified on: 10/18/2019 21:40 EDT] Mi Licea DO [Transcribed on: 10/02/2019 11:06 EDT] [facility] Consent Formson 09-29-2019 Consent Forms [id number]#1.00O [facility] Medication Managementon 09-09 Medication Management [id number]#1.00O [facility] Outside Recordson 09-29-2019 Outside Records [id number]#1.00O [facility] Outside Records [id number]#1.00O [facility] Provider Orderson 09-29-2019 Provider Orders [id number]#1.00O [facility] Telemetry Stripson 0 Telemetry Strips [id number]#1.00O [facility] .Auto Diff 1on 2019 Auto [place] % 11 % Normal 02-19 [facility] Comment on above: Performed By: #### 1 [id number], [id number], [id number] #### [facility] (DEFAULT) [address] [place] [id number] Baso Abs# 0.0 x10 Normal 0.0-0.2 [facility] Comment on above: Performed By: #### 1 [id number], [id number], [id number] #### [facility] (DEFAULT) [address] [place] [address]131 Basophils/100 WBC (Bld) 0.1 % Low 0.2-2.0 [facility] Comment on above: Performed By: #### 1 [id number], [id number], [id number] #### [facility] (DEFAULT) [address] [place] [address] 25202 Eos Abs# 0.2 x10 Normal 0.0-0.4 [facility] Comment on above: Performed By: #### 1 [id number], [id number], [id number] #### [facility] (DEFAULT) [address] [place] [address] 85197 Eosinophils/100 WBC (Bld) 2.2 % Normal 0.9-4.0 [facility] Comment on above: Performed By: #### 1 [id number], [id number], [id number] #### [facility] (DEFAULT) [address] [place] [address] Lymphocytes (Bld) [#/Vol] 0.6 x10 Low 1.3-2.9 [facility] Comment on above: Performed By: #### 1 [id number], [id number], [id number] #### [facility] (DEFAULT) [address] [place] [address] Lymphocytes/100 WBC (Bld) 6 % Low 14-48 [facility] Comment on above: Performed By: #### 1 [id number], [id number], [id number] #### [facility] (DEFAULT) [address] [place] [address] Sutton Abs# 1.0 x10 High 0.0-0.8 [facility] Comment on above: Performed By: #### 1 [id number], [id number], [id number] #### [facility] (DEFAULT) [address] [place] [address] Neut Abs# 7.2 x10 Normal 1.5-9.2 [facility] Comment on above: Performed By: #### 1 [id number], [id number], [id number] #### [facility] (DEFAULT) [address] [place] [address] Neutrophils/100 WBC (Bld) 80 % Normal 44-88 [facility] Comment on above: Performed By: #### 1 [id number], [id number], [id number] #### [facility] (DEFAULT) [address] [place] [address] CBC w/ Auto Diffon 20-202 0 Erythrocyte distribution width (RBC) [Ratio] 14.4 % Normal 11.5-15.0 [facility] Comment on above: Performed By: #### 1 [id number], [id number], [id number] #### [facility] (DEFAULT) [address] [place] [address] Hematocrit (Bld) [Volume fraction] 36.2 % Normal 33.7-40.4 [facility] Comment on above: Performed By: #### 1 [id number], [id number], [id number] #### [facility] (DEFAULT) [address] [place] [address] 78542 Hemoglobin (Bld) [Mass/Vol] 11.9 g/dL Normal 11.3-15.9 [facility] Comment on above: Performed By: #### 1 [id number], [id number], [id number] #### [facility] (DEFAULT) [address] [place] [address] 22998 Man Diff? Auto Normal [facility] Comment on above: Performed By: #### 1 [id number], [id number], [id number] #### [facility] (DEFAULT) [address] [place] [address] [id number] MCH (RBC) [Entitic mass] 33 pg Normal 24-34 [facility] Comment on above: Performed By: #### 1 [id number], [id number], [id number] #### [facility] (DEFAULT) [address] [place] [address] 99886 MCHC (RBC) [Mass/Vol] 33 g/dL Normal 26-37 [facility] Comment on above: Performed By: #### 1 [id number], [id number], [id number] #### [facility] (DEFAULT) [address] [place] [address] 27016 MCV (RBC) [Entitic vol] 100 fL Normal 81-100 [facility] Comment on above: Performed By: #### 1 [id number], [id number], [id number] #### [facility] (DEFAULT) [address] [place] [address] 17211 Platelet mean volume (Bld) [Entitic vol] 9.6 fL Normal 6.3-10.2 [facility] Comment on above: Performed By: #### 1 [id number], [id number], [id number] #### [facility] (DEFAULT) [address] [place] [address] 15064 Platelets (Bld) [#/Vol] 286 x10 Normal 138-427 [facility] Comment on above: Performed By: #### 1 [id number], [id number], [id number] #### [facility] [facility] ([facility] [address] [place] [address] 54485 RBC (Bld) [#/Vol] 3.61 x10 Low 3.70-5.30 [facility] Comment on above: Performed By: #### 1 [id number], [id number], 7983840 #### [facility] (DEFAULT) [address] [place] [address] 25644 WBC (Bld) [#/Vol] 9.0 x10 [facility] Comment on above: Performed By: #### 1 [id number], 08892740, 3098225 #### [facility] (DEFAULT) [address] [place] [address] 30244 Education Noteon 2019 Education Note Education Materials [...] Normal [facility] 2019 Tube Collected Yes [facility] Comment on above: Performed By: #### 1 [id number], [id number], [id number] #### [facility] (DEFAULT) [address] [place] [address] 56570 Inpatient Patient Summaryon 2019 Inpatient Patient Summary [address] [address] Patient Discharge Instructions Name: DELICIA HSU : 1935 Patient Address: [address] [place] [address] Primary Care Provider: Name: Gypsy Mcmahon MD After you are discharged if you find you have any questions, please, call [phone] ext [phone] to speak to a nurse. Discharge Diagnosis: Primary localized osteoarthritis of left hip Prescription Information: If you have been given a prescription for narcotics, seek immediate medical attention if you have any difficulty breathing or any sudden status changes such as confusion and sleepiness. If you or anyone you know is experiencing suicidal thoughts, mental health, alcohol and/or drug addiction problems; contact the [facility] 31/08 Crisis Hotline -Text 4HZIA qd [phone]. If you received any narcotics, sedation, or [...] Instructions With: Address: When: Mi Licea [address] [facility] [address] [place] [address] Business (2) 10/03/2019 8:30 AM With: Address: When: Gypsy Mcmahon [address] [place] [address] [place] [address] Business (1) Medications During the course of your visit, your medication list was updated with the most current information. The details of those changes are reflected below: New Medications Other Medications cefuroxime (cefuroxime 250 mg oral tablet) 1 tab(s) Oral 2 times a day for 7 Days. [facility] Medications That Were Updated - Follow Below [...] Medical Center Progress Note - Nurseon 09-09 [facility] [...] PROGNOSIS: Good. Devorah Redd DO JOB #: [id number] [Electronically Signed on: 2019 13:04 EDT] DEVORAH REDD DO [Verified on: 2019 13:04 EDT] DEVORAH REDD DO [Transcribed on: 2019 11:05 EDT] GDU Normal [facility] .Auto Diff 1on 09-27-2019 Auto Sutton % 9 % Normal 1-12 [facility] Comment on above: Performed By: #### 1 [id number], [id number], 7094588 #### [facility] (DEFAULT) [address] [place] [address] 29986 Baso Abs# 0.0 x10 Normal 0.0-0.2 [facility] Comment on above: Performed By: #### 1 [id number], 93222490, 8937782 #### [facility] (DEFAULT) [address] [place] [address] 17372 Basophils/100 WBC (Bld) 0.1 % Low 0.2-2.0 [facility] Comment on above: Performed By: #### 1 [id number], 36724121, 8477947 #### [facility] (DEFAULT) [address] [place] [address] 34604 Eos Abs# 0.2 x10 Normal 0.0-0.4 [facility] Comment on above: Performed By: #### 1 [id number], 58405259, 8124191 #### [facility] (DEFAULT) [address] [place] [address] 74172 Eosinophils/100 WBC (Bld) 1.6 % Normal 0.9-4.0 [facility] Comment on above: Performed By: #### 1 [id number], 26072179, 9581256 #### [facility] (DEFAULT) [address] [place] [address] 59281 Lymphocytes (Bld) [#/Vol] 0.5 x10 Low 1.3-2.9 [facility] Comment on above: Performed By: #### 1 [id number], 39236564, 3727465 #### [facility] (DEFAULT) [address] [place] [address] 70878 Lymphocytes/100 WBC (Bld) 4 % Low 14-48 [facility] Comment on above: Performed By: #### 1 [id number], 00331062, 9131240 #### [facility] (DEFAULT) [address] [place] [address] 93478 Sutton Abs# 1.2 x10 High 0.0-0.8 [facility] Comment on above: Performed By: #### 1 [id number], 66840236, 0853042 #### [facility] (DEFAULT) [address] [place] [address] 04631 Neut Abs# 11.5 x10 High 1.5-9.2 [facility] Comment on above: Performed By: #### 1 [id number], 69421608, 4576983 #### [facility] (DEFAULT) [address] [place] [address] 32104 Neutrophils/100 WBC (Bld) 86 % Normal 44-88 [facility] Comment on above: Performed By: #### 1 [id number], 25385491, 1677890 #### [facility] (DEFAULT) [address] [place], [place] [id number] C Urineon 08-19-2020 C Urine Urine Culture ordere d as [...] Comment on above: Performed By: #### 7 [id number], 51309490, [id number] #### [facility] (DEFAULT) [address] [place] [address] CBC w/ Auto Diffon 0 Erythrocyte distribution width (RBC) [Ratio] 14.5 % Normal 11.5-15.0 [facility] Comment on above: Performed By: #### 1 [id number], 69146677, 5139897 #### [facility] (DEFAULT) [address] [place] [address] Hematocrit (Bld) [Volume fraction] 39.2 % Normal 33.7-40.4 [facility] Comment on above: Performed By: #### 1 [id number], 93252887, 8670183 #### [facility] (DEFAULT) [address] [place] [address] Hemoglobin (Bld) [Mass/Vol] 12.8 g/dL Normal 11.3-15.9 [facility] Comment on above: Performed By: #### 1 [id number], 76626678, 2329733 #### [facility] (DEFAULT) [address] [place] [address] 82896 Man Diff? Auto Normal [facility] Comment on above: Performed By: #### 1 [id number], 99498596, 5186450 #### [facility] (DEFAULT) [address] [place] [address] 37389 MCH (RBC) [Entitic mass] 33 pg Normal 24-34 [facility] Comment on above: Performed By: #### 1 [id number], 24561531, 5426013 #### [facility] (DEFAULT) [address] [place] [address] 48860 MCHC (RBC) [Mass/Vol] 33 g/dL Normal 26-37 [facility] Comment on above: Performed By: #### 1 [id number], 89995793, 5283223 #### [facility] (DEFAULT) [address] [place] [address] 29286 MCV (RBC) [Entitic vol] 101 fL High 81-100 [facility] Comment on above: Performed By: #### 1 [id number], 99807134, 6637834 #### [facility] (DEFAULT) [address] [place] [address] 59308 Platelet mean volume (Bld) [Entitic vol] 9.8 fL Normal 6.3-10.2 [facility] Comment on above: Performed By: #### 1 [id number], 91771739, 6820471 #### [facility] (DEFAULT) [address] [place] [address] 33869 Platelets (Bld) [#/Vol] 266 x10 Normal 138-427 [facility] Comment on above: Performed By: #### 1 [id number], 83157798, 3215029 #### [facility] (DEFAULT) [address] [place] [address] 45765 RBC (Bld) [#/Vol] 3.89 x10 Normal 3.70-5.30 [facility] Comment on above: Performed By: #### 1 [id number], 15287875, 5184248 #### [facility] (DEFAULT) [address] [place] [address] WBC (Bld) [#/Vol] 13.4 x10 [facility] Comment on above: Result Comment: Slid e Reviewed Performed By: #### 1 [id number], 40090216, 7367290 #### [facility] (DEFAULT) [address] [place] [address] Coding Summaryon 09-27-2019 Coding Summary CODING DATE: 020 FINAL [facility] STATUS: Home PAYOR: Medicare [...] Marisela Lawrence Date Saved: 09/27/2019 11:11 am [facility] Extra Greenon 09-27-2019 Tube Collected Yes [facility] Comment on above: Performed By: #### 1 [id number], 29049450, 0828597 #### [facility] (DEFAULT) [address] [place] [address] Nutrition Noteon 09-27-2019 Nutrition Note Pt eating poorly, av g less than 30% of meals per intake records. Supplements also taken sporadically. Suspect pain and constipation may be playing a role. No new wts. Last BM 09/23. Possible discharge later today. Will continue to follow and monitor need to adjust supplements ie. offer to make into a milkshake, [facility] Pharmacy Noteon 09-27-2019 Pharmacy Note [...] PROGNOSIS: Good. Devorah Redd DO JOB #: [id number] [Electronically Signed on: 2019 10:28 EDT] DEVORAH REDD DO [Verified on: 2019 10:28 EDT] DEVORAH REDD DO [Transcribed on: 09/27/2019 13:52 EDT] GDU Normal [facility] .Auto Diff on 09-26-2019 Auto Sutton % 9 % Normal 1-12 [facility] Comment on above: Performed By: #### 1 [id number], 34034623, 1110211 #### [facility] (DEFAULT) [address] [place] [address] 47788 Baso Abs# 0.0 x10 Normal 0.0-0.2 [facility] Comment on above: Performed By: #### 1 [id number], 53279563, 6146358 #### [facility] (DEFAULT) [address] [place] [address] 80269 Basophils/100 WBC (Bld) 0.1 % Low 0.2-2.0 [facility] Comment on above: Performed By: #### 1 [id number], 86191918, 1026607 #### [facility] (DEFAULT) [address] [place] [address] 81637 Eos Abs# 0.2 x10 Normal 0.0-0.4 [facility] Comment on above: Performed By: #### 1 [id number], 61853235, 0407485 #### [facility] (DEFAULT) [address] [place] [address] 28727 Eosinophils/100 WBC (Bld) 2.0 % Normal 0.9-4.0 [facility] Comment on above: Performed By: #### 1 [id number], 44452767, 5951803 #### [facility] (DEFAULT) [address] [place] [address] 70553 Lymphocytes (Bld) [#/Vol] 0.6 x10 Low 1.3-2.9 [facility] Comment on above: Performed By: #### 1 [id number], 84977460, 5846630 #### [facility] (DEFAULT) [address] [place] [address] 82354 Lymphocytes/100 WBC (Bld) 6 % Low 14-48 [facility] Comment on above: Performed By: #### 1 [id number], 63577952, 8687221 #### [facility] (DEFAULT) [address] [place] [address] 01796 Sutton Abs# 0.9 x10 High 0.0-0.8 [facility] Comment on above: Performed By: #### 1 [id number], 68493779, 9027716 #### [facility] (DEFAULT) [address] [place] [address] Neut Abs# 8.3 x10 Normal 1.5-9.2 [facility] Comment on above: Performed By: #### 1 [id number], 06265345, 5308896 #### [facility] (DEFAULT) [address] [place] [address] Neutrophils/100 WBC (Bld) 83 % Normal 44-88 [facility] Comment on above: Performed By: #### 1 [id number], 76999672, 4023552 #### [facility] (DEFAULT) [address] [place] [address] Standardon 09-26-2019 eGFR Non AA 48 mL/min/1.73m2 [facility] Comment on above: Performed By: #### 1 [id number], 31248781, 7603349 #### [facility] (DEFAULT) [address] [place] [address] eGFR AA 58 mL/min/1.73m2 [facility] Comment on above: Result Comment: Long Lines Operator kody Kidney disease could be indicated at eGFRs of less than 60 ml/min/1.73m2. Kidney Failure is indicated at less than 15 ml/min/1.73m2 Performed By: #### 1 [id number], 24467291, 7311784 #### [facility] (DEFAULT) [address] [place] [address] 39071 Anion gap [Moles/Vol] 10.0 mmol/L Normal 5.0-19.0 [facility] Comment on above: Performed By: #### 1 [id number], 28772379, 6286392 #### [facility] (DEFAULT) [address] [place] [address] 59955 Calcium [Mass/Vol] 8.8 mg/dL Low 8.9-10.3 [facility] Comment on above: Performed By: #### 1 [id number], 92170292, 8605958 #### [facility] (DEFAULT) [address] [place] [address] 53856 Chloride [Moles/Vol] 103 mmol/L Normal 101-111 [facility] Comment on above: Performed By: #### 1 [id number], 61292730, 1511593 #### [facility] (DEFAULT) [address] [place] [address] 91119 CO2 [Moles/Vol] 28 mmol/L Normal 21-32 [facility] Comment on above: Performed By: #### 1 [id number], 06260926, 4073579 #### [facility] (DEFAULT) [address] [place] [address] 55053 Creatinine [Mass/Vol] 1.09 mg/dL Normal 0.60-1.30 [facility] Comment on above: Performed By: #### 1 [id number], 53100865, 1930739 #### [facility] (DEFAULT) [address] [place] [address] 53564 Glucose [Mass/Vol] 94.0 mg/dL Normal 74.0-118.0 [facility] Comment on above: Performed By: #### 1 [id number], 94125311, 1836900 #### [facility] (DEFAULT) [address] [place] [address] 41435 Osmolality [Osmolality] 276 mOsm/L [facility] Comment on above: Performed By: #### 1 [id number], 98943166, 2288899 #### [facility] (DEFAULT) [address] [place] [address] 03780 Potassium [Moles/Vol] 4.4 mmol/L Normal 3.6-5.1 [facility] Comment on above: Performed By: #### 1 [id number], 08377043, 2691503 #### [facility] (DEFAULT) [address] [place] [address] 94929 Sodium [Moles/Vol] 137.0 mmol/L Normal 136.0-144 . 0 [facility] Comment on above: Performed By: #### 1 [id number], 20672204, 6493885 #### [facility] (DEFAULT) [address] [place] [address] 50414 Urea nitrogen [Mass/Vol] 19 mg/dL Normal 8-26 [facility] Comment on above: Performed By: #### 1 [id number], 82431419, 2585355 #### [facility] (DEFAULT) [address] [place] [address] Urea nitrogen/Creatinine [Mass ratio] 17.0 mg/mg High 4.6-16.2 [facility] Comment on above: Performed By: #### 1 [id number], 46586981, 8816916 #### [facility] (DEFAULT) [address] [place] [address] CBC w/ Auto Diffon 0 Erythrocyte distribution width (RBC) [Ratio] 14.4 % Normal 11.5-15.0 [facility] Comment on above: Performed By: #### 1 [id number], 65126631, 1105962 #### [facility] (DEFAULT) [address] [place] [address] Hematocrit (Bld) [Volume fraction] 35.5 % Normal 33.7-40.4 [facility] Comment on above: Performed By: #### 1 119367094, 28065482, 6994419 #### [facility] (DEFAULT) [address] [place] [address] 56764 Hemoglobin (Bld) [Mass/Vol] 11.6 g/dL Normal 11.3-15.9 [facility] Comment on above: Performed By: #### 1 119066248, 34690770, 6358735 #### [facility] (DEFAULT) [address] [place] [address] 59540 Man Diff? Auto Normal [facility] Comment on above: Performed By: #### 1 [id number], 88866943, 6385167 #### [facility] (DEFAULT) [address] [place] [address] 58657 MCH (RBC) [Entitic mass] 33 pg Normal 24-34 [facility] Comment on above: Performed By: #### 1 [id number], 35693056, 2179155 #### [facility] (DEFAULT) [address] [place] [address] 60395 MCHC (RBC) [Mass/Vol] 33 g/dL Normal 26-37 [facility] Comment on above: Performed By: #### 1 [id number], 28024157, 4049979 #### [facility] (DEFAULT) [address] [place] [address] 80394 MCV (RBC) [Entitic vol] 102 fL High 81-100 [facility] Comment on above: Performed By: #### 1 604016746, 86798162, 1654545 #### [facility] (DEFAULT) [address] [place] [address] Platelet mean volume (Bld) [Entitic vol] 9.8 fL Normal 6.3-10.2 [facility] Comment on above: Performed By: #### 1 [id number], 56347511, 6825414 #### [facility] (DEFAULT) [address] [place] [address] 84221 Platelets (Bld) [#/Vol] 236 x10 Normal 138-427 [facility] Comment on above: Performed By: #### 1 [id number], 93415593, 0890797 #### [facility] (DEFAULT) [address] [place] [address] 75752 RBC (Bld) [#/Vol] 3.49 x10 Low 3.70-5.30 [facility] Comment on above: Performed By: #### 1 890580265, 22515059, 1108896 #### [facility] (DEFAULT) [address] [place] [address] 86145 WBC (Bld) [#/Vol] 10.0 x10 [facility] Comment on above: Performed By: #### 1 [id number], 89202210, 7302124 #### [facility] (DEFAULT) [address] [place] [address] 17235 Consent Formson 09-26-2019 Consent Forms [id number] TGTIFF Normal [facility] [...] [Verified on: 09/26/2019 07:35 EDT] RIDDHISUDHEER HOLLOWAY [facility] Progress Note - [...] Medical Center .Auto Diff 1on 09-25-2019 Auto Sutton % 8 % Normal -12 [facility] Comment on above: Performed By: #### 1 [id number], 12402649, 0972615 #### [facility] (DEFAULT) [address] [place] [address] 62334 Baso Abs# 0.0 x10 Normal 0.0-0.2 [facility] Comment on above: Performed By: #### 1 [id number], 21703259, 5561984 #### [facility] (DEFAULT) [address] [place] [address] 00313 Basophils/100 WBC (Bld) 0.2 % Normal 0.2-2.0 [facility] Comment on above: Performed By: #### 1 [id number], 99619105, 2888996 #### [facility] (DEFAULT) [address] [place] [address] 84721 Eos Abs# 0.1 x10 Normal 0.0-0.4 [facility] Comment on above: Performed By: #### 1 [id number], 47678651, 4112644 #### [facility] (DEFAULT) [address] [place] [address] 11302 Eosinophils/100 WBC (Bld) 0.5 % Low 0.9-4.0 [facility] Comment on above: Performed By: #### 1 050362751, 00748789, 7793957 #### [facility] (DEFAULT) [address] [place] [address] 81589 Lymphocytes (Bld) [#/Vol] 1.1 x10 Low 1.3-2.9 [facility] Comment on above: Performed By: #### 1 [id number], 22322541, 1733345 #### [facility] (DEFAULT) [address] [place] [address] 39647 Lymphocytes/100 WBC (Bld) 9 % Low 14-48 [facility] Comment on above: Performed By: #### 1 [id number], 08046363, 8218935 #### [facility] (DEFAULT) [address] [place] [address] 49068 Sutton Abs# 1.0 x10 High 0.0-0.8 [facility] Comment on above: Performed By: #### 1 [id number], 69301614, 6173579 #### [facility] (DEFAULT) [address] [place] [address] 27231 Neut Abs# 9.6 x10 High 1.5-9.2 [facility] Comment on above: Performed By: #### 1 [id number], 69048261, 4678278 #### [facility] (DEFAULT) [address] [place] [address] 73318 Neutrophils/100 WBC (Bld) 82 % Normal 44-88 [facility] Comment on above: Performed By: #### 1 [id number], 19525384, 3890371 #### [facility] (DEFAULT) [address] [place] [address] 75276 ABORhon 09-25-2019 ABO and Rh group Nom (d) Hx Check: Not Found Anti-A: 4+ Anti-B: 0 Anti-D: 4+ DCon: NT A1: 0 B: 4+ ABORh Interp: A POS [facility] Comment on above: Performed By: #### 7 [id number], 66878761, [id number] #### [facility] (DEFAULT) [address] [place] [address] 98142 ABORh Retypeon 09-25-2019 ABO and Rh group Nom (d) Ordered by Discern. Anti-A: 4+ Anti-B: 0 Anti-D: 4+ DCon: NT A1: 0 B: 4+ ABORh Retype: A [facility] Comment on above: Performed By: #### 7 [id number], 43342565, [id number] #### [facility] (DEFAULT) [address] [place] [address] 86391 ABSC Gelon 09-25-2019 ABSC Gel Negative Normal [facility] Comment on above: Performed By: #### 7 410671, 08555209, [id number] #### [facility] (DEFAULT) [address] [place] [address] 07102 Anesthesia Noteon 09-25-2019 Anesthesia Note Patient: DONTAE [...] risk of pressure sore / SNOMED CT 638245102 / Confirmed CAD (coronary artery disease) / SNOMED CT 00477667 / Confirmed Hyperlipidemia / SNOMED CT 69484105 / Confirmed Hypertension / SNOMED CT 0201222493 / Confirmed Skin cancer / SNOMED CT 4431728968 / Confirmed Osteoporosis / SNOMED CT 107473023 / Confirmed Restless leg syndrome / SNOMED CT 41429860 / Confirmed Resolved: GERD (gastroesophageal reflux disease) / SNOMED CT 319166558 Histories Family History: Cancer Sister Brother Aneurysm Mother CHF - Congestive heart failure Father [place] (myocardial infarction) Sister Procedure history: Umbilical hernia (5347393192). Arthroscopy (13359034). Comments: 08/29/2019 12:57 Dionne Mccarty RN arthroscopy of knee Cholecystectomy (90313886). Hysterectomy (626005299). Cataract (272726145). Shoulder (07519616). Comments: 08/29/2019 12:58 EDT - Dionne Yun RN arthroscopy CABG (Coronary artery bypass grafting) planned (975588924). Colonoscopy (731780790). EGD - Esophagogastroduodenosc opy (8559415814). Meniscectomy (930371143). Hip arthroplasty (148256790). Social History Electronic Cigarette/Vaping Assessment Electronic Cigarette [...] axis dev, LAFB, RV conduction delay. Plan [place] [employer]#(ASA) physical status classification: Class [...] Bank IDon 09-25-2019 Blood Bank ID BBID: [id number] [facility] Comment on above: Performed By: #### 7 [id number], 11347198, [id number] #### [facility] (DEFAULT) [address] [place] [address] 60268 CBC w/ Auto Diffon 0 Erythrocyte distribution width (RBC) [Ratio] 14.4 % Normal 11.5-15.0 [facility] Comment on above: Performed By: #### 1 [id number], 05835850, 1614007 #### [facility] (DEFAULT) [address] [place] [address] 19112 Hematocrit (Bld) [Volume fraction] 39.2 % Normal 33.7-40.4 [facility] Comment on above: Performed By: #### 1 [id number], 53307764, 5255175 #### [facility] (DEFAULT) [address] [place] [address] 80824 Hemoglobin (Bld) [Mass/Vol] 12.8 g/dL Normal 11.3-15.9 [facility] Comment on above: Performed By: #### 1 419963522, 50205196, 6124191 #### [facility] (DEFAULT) [address] [place] [address] 68885 Man Diff? Auto Normal [facility] Comment on above: Performed By: #### 1 [id number], 56752415, 9490138 #### [facility] (DEFAULT) [address] [place] [address] 31807 MCH (RBC) [Entitic mass] 33 pg Normal 24-34 [facility] Comment on above: Performed By: #### 1 [id number], 19279408, 6383459 #### [facility] (DEFAULT) [address] [place] [address] 56036 MCHC (RBC) [Mass/Vol] 33 g/dL Normal 26-37 [facility] Comment on above: Performed By: #### 1 656459574, 87530913, 3556050 #### [facility] (DEFAULT) [address] [place] [address] 67391 MCV (RBC) [Entitic vol] 102 fL High 81-100 [facility] Comment on above: Performed By: #### 1 [id number], 52837413, 5606774 #### [facility] (DEFAULT) [address] [place] [address] 73199 Platelet mean volume (Bld) [Entitic vol] 9.4 fL Normal 6.3-10.2 [facility] Comment on above: Performed By: #### 1 [id number], [id number], [id number] #### [facility] (DEFAULT) [address] [place] [address] 30364 Platelets (Bld) [#/Vol] 272 x10 Normal 138-427 [facility] Comment on above: Performed By: #### 1 [id number], [id number], [id number] #### [facility] (DEFAULT) [address] [place] [address] 17709 RBC (Bld) [#/Vol] 3.85 x10 Normal 3.70-5.30 [facility] Comment on above: Performed By: #### 1 [id number], [id number], [id number] #### [facility] (DEFAULT) [address] [place] [address] 84470 WBC (Bld) [#/Vol] 11.7 x10 High 3.5-10.5 [facility] Comment on above: Performed By: #### 1 [id number], [id number], [id number] #### [facility] (DEFAULT) [address] [place] [address] 07295 Extra Chauncey 09-25-2019 Tube Collected Yes [facility] Comment on above: Performed By: #### 7 [id number], [id number], [id number] #### [facility] (DEFAULT) [address] [place] [address] 18434 H&Hon 09-25-2019 Hematocrit (Bld) [Volume fraction] 39.9 % Normal 33.7-40.4 [facility] Comment on above: Performed By: #### 7 567488, 10413074, [id number] #### [facility] (DEFAULT) [address] [place] [address] 77409 Hemoglobin (Bld) [Mass/Vol] 12.7 g/dL Normal 11.3-15.9 [facility] Comment on above: Performed By: #### 7 031558, [id number], [id number] #### [facility] (DEFAULT) [address] [place] [address] History and Physicalon 09-24 History and Physical [id number] TGTIFF Normal [facility] MAGR Intraoperative Recordon 09-25-2019 MAGR Intraoperative Record MAGR Intra-Op Record Summary Primary Physician: Mi Licea DO Finalized Date/Time: 09/25/19 15:04:11 Pt. Name: DELICIA HSU Jean Carlos Cha/Sex: 1935 FEMALE Med Rec #: [id number] Physician: Mi Licea DO Financial #: [id number] Pt. Type: I Room/Bed: [facility] Admit/Disch: 09/25/19 06:52:00 - Institution: Case Times [...] Role Performed Surgeon - Primary Anesthesiologist of Visual Merchandise Manager Record Time In 09/25/19 09:37:00 09/25/19 09:37:00 09/25/19 09:37:00 Time Out 09/25/19 11:50:00 09/25/19 11:50:00 09/25/19 11:50:00 Procedure Arthroplasty Total Arthroplasty Total Arthroplasty Total Hip(Left) Hip(Left) Hip(Left) Last Modified By: Marj Sullivan RN, Stephanie RN Sauer, Stephanie RN 09/25/19 12:54:58 09/25/19 12:54:58 09/25/19 12:54:58 Entry 4 Entry 5 Entry 6 Case Attendee Montrell MCKEON, Shantal Moreira Leigh-Ann CST Role Performed Scrub Personnel Broke Worker Broke Worker Time In 09/25/19 09:37:00 09/25/19 09:37:00 09/25/19 [...] Final Count Status Correct Final Counts Ange Sotck CST, Performed By Marj Sullivan RN Final [...] Huddleston, James By: Eduardo BOYD Eduardo Eduardo DO Size 32MM 50MM 6.5 X 30MM 6.5 X 15MM Research Laboratory Manager DEPUY DEPUY DEPUY Catalog # Lot Number [id number] Expiration Date 05/08/24 03/10/29 01/07/29 Serial Number [id number] REF 1217-30-500 REF 1217-15-500 Device Identifier Human Readable EDDA Machine Readable EDDA MR Class Implant Usage Data Site Hip L Hip L Hip L Quantity 1 1 1 Reason for Explant Reason Not Retained Explant Disposition Vat Overhauler Sterility External Indicator Result Internal Indicator Results [...] Licea James Huddleston, James By: Eduardo Schultzlourdes BOYD Size 6.5 X 15MM 50MM PS Research Laboratory Manager DEPUY DEPUY DEPUY Catalog # Lot Number [id number] Expiration Date 11/07/28 04/07/29 04/07/29 Serial Number REF 1217-15-500 REF 1217-32-050 REF 1246-03-000 Device Identifier Human Readable EDDA Machine Readable EDDA MR Class Implant Usage Data Site Hip L Hip L Hip L Quantity 1 1 1 Reason for Explant Reason Not Retained Explant Disposition Vat Overhauler Sterility External Indicator Result Internal Indicator Results [...] Eduardo DO Size 135 SHORT NECK COLLAR 14 TAPER SIZE 11 Research Laboratory Manager DEPU[employer] DEPUY Catalog # Lot Number [id number] Expiration Date 02/08/24 02/08/24 Serial Number REF [id number] REF 1365-22-000 Device Identifier Human Readable EDDA Machine Readable EDDA MR Class Implant Usage Data Site Hip L Hip L Quantity 1 1 Reason for Explant Reason Not Retained Explant Disposition Vat Overhauler Sterility External Indicator Result Internal Indicator Results [...] Unfinalizing 09/25/19 15:04 MARSHA Modify Pick List [facility] MAGR PACU Recordon 0 MAGR PACU Record MAGR PACU Record Summary Primary Physician: Mi Licea DO Finalized Date/Time: 09/25/19 12:53:39 Pt. Name: DELICIA HSU/Sex: 1935 FEMALE Med Rec #: [id number] Physician: Mi Licea DO Financial #: [id number] Pt. Type: I Room/Bed: [facility] Admit/Disch: 09/25/19 06:52:00 - Institution: PACU Case Times MAGR Entry 1 In PACU I 09/25/19 11:50:00 Discharge from PACU 09/25/19 12:40:00 I Last Modified By: Dionne Yun RN 09/25/19 12:53:35 Finalized By: Dionne Yun RN Document Signatures Signed By: Dionne Yun RN 09/25/19 [facility] 09-25-2019 MAGR Preoperative Record MAGR Pre-Op Record Summary Primary Physician: Mi Licea DO Finalized Date/Time: 09/25/19 11:58:52 Pt. Name: DELICIA HSU/Sex: 1935 FEMALE Med Rec #: [id number] Physician: Mi Licea DO Financial #: [id number] Pt. Type: I Room/Bed: 221/1 Admit/Disch: 09/25/19 [...] Signed By: Dionne Yun RN 09/25/19 11:58 [facility] Nutrition Noteon 09-25-2019 Nutrition Note Pt admitted for scheduled Lt total hip sx; placed on a Regular diet as tolerated w/ post op supplements BID along w/ usual vitamin/mineral supplementation. Nutritional supplements adjusted to what's available in house. Per corporate intern assessment, Pt reports wt loss of 2-13lb, [...] associates to offer prunes/prune alfred q am. 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 Performed By: #### 7 006039, [id number], [id number] #### [facility] (DEFAULT) [address] [place] [address] UA Bacteria 4+ [facility] Comment on above: Order Comment: Urina lysis Microscopic order added on by [email or web address] Expert Rules system. Performed By: #### 7 322694, [id number], [id number] #### [facility] (DEFAULT) [address] [place] [address] 43807 UA Squam Epi Rare [facility] Comment on above: Order Comment: Urina lysis Microscopic order added on by [email or web address] Expert Rules system. Performed By: #### 7 157122, [id number], [id number] #### [facility] (DEFAULT) [address] [place] [address] 42766 UA WBC 0-2 [facility] Comment on above: Order Comment: Urina lysis Microscopic order added on by [email or web address] Expert Rules system. Performed By: #### 7 558681, [id number], [id number] #### [facility] (DEFAULT) [address] [place] [address] 74633 UA w Culture if Ind Standard on 09-25-2019 Breakpoint UA [facility] Comment on above: Order Comment: beckman insert Performed By: #### 7 266651, 02844526, [id number] #### [facility] (DEFAULT) [address] [place] [address] 90661 Color (U) Yellow [facility] Comment on above: Order Comment: beckman insert Performed By: #### 7 345556, [id number], [id number] #### [facility] (DEFAULT) [address] [place] [address] 54002 Culture? Indicated [facility] Comment on above: Order Comment: beckman insert Performed By: #### 7 553469, [id number], [id number] #### [facility] (DEFAULT) [address] [place] [address] 85804 Glucose (U) [Mass/Vol] Negative [facility] Comment on above: Order Comment: beckman insert Performed By: #### 7 461275, 60731751, [id number] #### [facility] (DEFAULT) [address] [place] [address] Ketones Ql (U) Negative [facility] Comment on above: Order Comment: beckman insert Performed By: #### 7 588468, 87599170, [id number] #### [facility] (DEFAULT) [address] [place] [address] 53045 Micro? Indicated [facility] Comment on above: Order Comment: beckman insert Performed By: #### 7 517315, 14855687, [id number] #### [facility] (DEFAULT) [address] [place] [address] 15238 UA Bilirubin Negative [facility] Comment on above: Order Comment: beckman insert Performed By: #### 7 849440, 94765818, [id number] #### [facility] (DEFAULT) [address] [place] [address] 54590 UA Blood Negative Normal NEGATIVE [facility] Comment on above: Order Comment: beckman insert Performed By: #### 7 093797, 38774171, [id number] #### [facility] (DEFAULT) [address] [place] [address] 75821 UA Clarity CLEAR Normal CLEAR [facility] Comment on above: Order Comment: beckman insert Performed By: #### 7 048668, [id number], [id number] #### [facility] (DEFAULT) [address] [place] [address] 49780 UA Leuk Est SMALL Abnormal NEGATIVE [facility] Comment on above: Order Comment: beckman insert Performed By: #### 7 333949, 39197786, [id number] #### [facility] (DEFAULT) [address] [place] [address] 43077 UA Nitrite Positive Abnormal NEGATIVE [facility] Comment on above: Order Comment: beckman insert Performed By: #### 7 934433, 61663265, [id number] #### [facility] (DEFAULT) [address] [place] [address] 33667 UA pH 7.0 Normal 5-8 [facility] Comment on above: Order Comment: beckman insert Performed By: #### 7 684626, 52381769, [id number] #### [facility] (DEFAULT) [address] [place] [address] UA Protein Negative Normal NEGATIVE [facility] Comment on above: Order Comment: beckman insert Performed By: #### 7 498072, 13657624, [id number] #### [facility] (DEFAULT) [address] [place] [address] 63555 UA Spec Grav 1.020 Normal 1.001-1.[address] [place] [address] Comment on above: Order Comment: beckman insert Performed By: #### 7 067055, 79765976, [id number] #### [facility] (DEFAULT) [address] [place] [address] 54873 UA Urobilinogen 0.2 mg/dL Normal 0.2-1.0 [facility] Comment on above: Order Comment: beckman insert Performed By: #### 7 853256, 37604267, [id number] #### [facility] (DEFAULT) [address] [place] [address] Urine Source Clean Catch [facility] Comment on above: Order Comment: beckman insert Performed By: #### 7 859739, 04241104, [id number] #### [facility] (DEFAULT) [address] [place] [address] XR Hip Complete Lefton 09-24 XR Hip [...] on: 09/22/2019 09:47 EDT] Kimberley Holden RN [facility] SARS-CoV-2 (COVID-19) PCRon 09-22-2019 COVID-19 PCR Not Detected Normal Not Detected [facility] Comment on above: Performed By: #### 7 130338, 12068868, [id number] #### [facility] (DEFAULT) [address] [place] [address] 48215 Employed in healthcare? Unknown [facility] Comment on above: Performed By: #### 7 424294, 60455876, [id number] #### [facility] (DEFAULT) [address] [place] [address] 16249 Group care resident? Unknown [facility] Comment on above: Performed By: #### 7 350479, 32895874, [id number] #### [facility] (DEFAULT) [address] [place] [address] 31457 Hospitalized due to COVID-19? Unknown [facility] Comment on above: Performed By: #### 7 288814, 88365206, [id number] #### [facility] (DEFAULT) [address] [place] [address] 11644 In ICU? Unknown [facility] Comment on above: Performed By: #### 7 976048, 73800513, [id number] #### [facility] (DEFAULT) [address] [place] [address] 49459 status? Unknown [facility] Comment on above: Performed By: #### 7 457320, 41572232, [id number] #### [facility] (DEFAULT) [address] [place] [address] 34163 Symptomatic as defined by CDC? Unknown [facility] Comment on above: Performed By: #### 7 452206, 56532660, [id number] #### [facility] (DEFAULT) [address] [place] [address] 00400 Coding Summaryon 09-13-2019 Coding Summary CODING DATE: 020 FINAL [facility] STATUS: Home PAYOR: Medicare APC DESCRIPTION 5733 Level 3 Minor Procedures ADMIT DX: REASON FOR VISIT DX: Z01.818 Encounter for other preprocedural examination I10 Essential (primary) hypertension I25.10 Atherosclerotic heart disease of cahto coronary artery without angina pectoris FINAL DX: PRINCIPAL: Z01.818 Encounter for other preprocedural examination SECONDARY: I10 Essential (primary) hypertension I25.10 Atherosclerotic heart disease of cahto coronary artery without angina pectoris K21.9 Gastro-esophageal [...] Summaryon 09-06-2019 Coding Summary CODING DATE: 020 [facility] STATUS: Home PAYOR: Medicare APC DESCRIPTION 5733 Level 3 Minor Procedures ADMIT DX: REASON FOR VISIT DX: Z01.818 Encounter for other preprocedural examination I10 Essential (primary) hypertension I25.10 Atherosclerotic heart disease of cahto coronary artery without angina pectoris FINAL DX: PRINCIPAL: Z01.818 Encounter for other preprocedural examination SECONDARY: I10 Essential (primary) hypertension I25.10 Atherosclerotic heart disease of cahto coronary artery without angina pectoris K21.9 Gastro-esophageal [...] [facility] Center Provider Orderson 09-04-2019 Provider Orders [id number]#[id number] TGTIFF [facility] C Urineon 09-03-2019 C [...] S <=4 Verified Tri/Sulf S <=2/38 Verified [facility] Comment on above: Performed By: #### 1 [id number], [id number], [id number] #### [facility] (DEFAULT) [address] [place] [address] 98096 C MRSA Screenon 09-02-2019 C MRSA Screen Negative Normal [facility] Comment on above: Performed By: #### 1 [id number] #### [facility] (DEFAULT) [address] [place] [address] 12277 .Auto Diff 1on 09-01-2019 Auto Sutton % 10 % Normal 1-12 [facility] Comment on above: Performed By: #### 7 970147, 60237275, [id number] #### [facility] (DEFAULT) [address] [place] [address] 69661 Baso Abs# 0.0 x10 Normal 0.0-0.2 [facility] Comment on above: Performed By: #### 7 173662, 35813002, [id number] #### [facility] (DEFAULT) [address] [place] [address] 41589 Basophils/100 WBC (Bld) 0.3 % Normal 0.2-2.0 [facility] Comment on above: Performed By: #### 7 574797, 35600678, [id number] #### [facility] (DEFAULT) [address] [place] [address] Eos Abs# 0.1 x10 Normal 0.0-0.4 [facility] Comment on above: Performed By: #### 7 708869, 53558567, [id number] #### [facility] (DEFAULT) [address] [place] [address] 03845 Eosinophils/100 WBC (Bld) 0.9 % Normal 0.9-4.0 [facility] Comment on above: Performed By: #### 7 520871, 83404122, [id number] #### [facility] (DEFAULT) [address] [place] [address] 81767 Lymphocytes (Bld) [#/Vol] 1.0 x10 Low 1.3-2.9 [facility] Comment on above: Performed By: #### 7 956182, 76867461, [id number] #### [facility] (DEFAULT) [address] [place] [address] 68957 Lymphocytes/100 WBC (Bld) 10 % Low 14-48 [facility] Comment on above: Performed By: #### 7 594691, 47188488, [id number] #### [facility] (DEFAULT) [address] [place] [address] Sutton Abs# 1.0 x10 High 0.0-0.8 [facility] Comment on above: Performed By: #### 7 517326, 96394430, [id number] #### [facility] (DEFAULT) [address] [place] [address] Neut Abs# 8.0 x10 Normal 1.5-9.2 [facility] Comment on above: Performed By: #### 7 122741, 88155809, [id number] #### [facility] (DEFAULT) [address] [place] [address] Neutrophils/100 WBC (Bld) 79 % Normal 44-88 [facility] Comment on above: Performed By: #### 7 601770, 90160638, [id number] #### [facility] (DEFAULT) [address] [place] [address] Standardon 09-01-2019 eGFR Non AA 44 mL/min/1.73m2 [facility] Comment on above: Performed By: #### 7 425090, 98737446, [id number] #### [facility] (DEFAULT) [address] [place] [address] eGFR AA 54 mL/min/1.73m2 [facility] Comment on above: Result Comment: Long Lines Operator kody Kidney disease could be indicated at eGFRs of less than 60 ml/min/1.73m2. Kidney Failure is indicated at less than 15 ml/min/1.73m2 Performed By: #### 7 661905, 66279263, [id number] #### [facility] (DEFAULT) [address] [place] [address] Anion gap [Moles/Vol] 15.0 mmol/L Normal 5.0-19.0 [facility] Comment on above: Performed By: #### 7 296120, 50915166, [id number] #### [facility] (DEFAULT) [address] [place] [address] 39938 Calcium [Mass/Vol] 9.2 mg/dL Normal 8.9-10.3 [facility] Comment on above: Performed By: #### 7 484319, 43589516, [id number] #### [facility] (DEFAULT) [address] [place] [address] 69411 Chloride [Moles/Vol] 101 mmol/L Normal 101-111 [facility] Comment on above: Performed By: #### 7 253892, 27090434, [id number] #### [facility] (DEFAULT) [address] [place] [address] 34525 CO2 [Moles/Vol] 25 mmol/L Normal 21-32 [facility] Comment on above: Performed By: #### 7 181483, 97074697, [id number] #### [facility] (DEFAULT) [address] [place] [address] 74852 Creatinine [Mass/Vol] 1.17 mg/dL Normal 0.60-1.30 [facility] Comment on above: Performed By: #### 7 462309, 21930256, [id number] #### [facility] (DEFAULT) [address] [place] [address] 13806 Glucose [Mass/Vol] 94.0 mg/dL Normal 74.0-118.0 [facility] Comment on above: Performed By: #### 7 162674, 53126363, [id number] #### [facility] (DEFAULT) [address] [place] [address] 21837 Osmolality [Osmolality] 276 mOsm/L [facility] Comment on above: Performed By: #### 7 167816, 31537888, [id number] #### [facility] (DEFAULT) [address] [place] [address] 51855 Potassium [Moles/Vol] 4.0 mmol/L Normal 3.6-5.1 [facility] Comment on above: Performed By: #### 7 176038, 82485858, [id number] #### [facility] (DEFAULT) [address] [place] [address] Sodium [Moles/Vol] 137.0 mmol/L Normal 136.0-144 . 0 [facility] Comment on above: Performed By: #### 7 095460, 11552807, [id number] #### [facility] (DEFAULT) [address] [place] [address] Urea nitrogen [Mass/Vol] 20 mg/dL Normal 8-26 [facility] Comment on above: Performed By: #### 7 114125, 49075434, [id number] #### [facility] (DEFAULT) [address] [place] [address] Urea nitrogen/Creatinine [Mass ratio] 17.0 mg/mg High 4.6-16.2 [facility] Comment on above: Performed By: #### 7 157702, 22052738, [id number] #### [facility] (DEFAULT) [address] [place] [address] CBC w/ Auto Diffon 0 Erythrocyte distribution width (RBC) [Ratio] 13.9 % Normal 11.5-15.0 [facility] Comment on above: Performed By: #### 7 465943, 77751268, [id number] #### [facility] (DEFAULT) [address] [place] [address] Hematocrit (Bld) [Volume fraction] 38.5 % Normal 33.7-40.4 [facility] Comment on above: Performed By: #### 7 019711, 70307459, [id number] #### [facility] (DEFAULT) [address] [place] [address] Hemoglobin (Bld) [Mass/Vol] 12.6 g/dL Normal 11.3-15.9 [facility] Comment on above: Performed By: #### 7 527289, 57133880, [id number] #### [facility] (DEFAULT) [address] [place] [address] Man Diff? Auto Normal [facility] Comment on above: Performed By: #### 7 507121, 48179428, [id number] #### [facility] (DEFAULT) [address] [place] [address] 92745 MCH (RBC) [Entitic mass] 33 pg Normal 24-34 [facility] Comment on above: Performed By: #### 7 438657, 17790118, [id number] #### [facility] (DEFAULT) [address] [place] [address] 74862 MCHC (RBC) [Mass/Vol] 33 g/dL Normal 26-37 [facility] Comment on above: Performed By: #### 7 853715, 66855624, [id number] #### [facility] (DEFAULT) [address] [place] [address] 55809 MCV (RBC) [Entitic vol] 101 fL High 81-100 [facility] Comment on above: Performed By: #### 7 879961, 89066195, [id number] #### [facility] (DEFAULT) [address] [place] [address] 74099 Platelet mean volume (Bld) [Entitic vol] 9.5 fL Normal 6.3-10.2 [facility] Comment on above: Performed By: #### 7 052356, 35139614, [id number] #### [facility] (DEFAULT) [address] [place] [address] 03630 Platelets (Bld) [#/Vol] 292 x10 Normal 138-427 [facility] Comment on above: Performed By: #### 7 270875, 86034837, [id number] #### [facility] (DEFAULT) [address] [place] [address] 09210 RBC (Bld) [#/Vol] 3.82 x10 Normal 3.70-5.30 [facility] Comment on above: Performed By: #### 7 981040, 04675504, [id number] #### [facility] (DEFAULT) [address] [place] [address] 24246 WBC (Bld) [#/Vol] 10.1 x10 Normal 3.5-10.5 [facility] Comment on above: Performed By: #### 7 759234, 31746608, [id number] #### [facility] (DEFAULT) [address] [place] [address] UA [id number] 09-01-2019 RBC (U) [#/Vol] None Seen [facility] Comment on above: Order Comment: Urina lysis Microscopic order added on by [employer] system. Performed By: #### 1 [id number], 69377624, [id number] #### [facility] (DEFAULT) [address] [place] [address] UA Amorph. 1+ [facility] Comment on above: Order Comment: Urina lysis Microscopic order added on by [employer] system. Performed By: #### 1 [id number], 90793802, [id number] #### [facility] (DEFAULT) [address] [place] [address] UA Bacteria 4+ [facility] Comment on above: Order Comment: Urina lysis Microscopic order added on by [employer] system. Performed By: #### 1 [id number], 55105937, [id number] #### [facility] (DEFAULT) [address] [place] [address] UA Squam Epi Moderate [facility] Comment on above: Order Comment: Urina lysis Microscopic order added on by [email or web address] system. Performed By: #### 1 [id number], 74458438, [id number] #### [facility] [facility] (DEFAULT) [address] [place] [address] UA WBC 15-20 [facility] Comment on above: Order Comment: Urina lysis Microscopic order added on by [email or web address] Expert Rules system. Performed By: #### 1 [id number], [id number] #### [facility] (DEFAULT) [address] [place] [address] UA w Culture if Ind Standard on 09-01-2019 Breakpoint UA [facility] Comment on above: Performed By: #### 1 [id number], [id number], [id number] #### [facility] (DEFAULT) [address] [place] [address] Color (U) Yellow [facility] Comment on above: Performed By: #### 1 [id number], [id number], [id number] #### [facility] (DEFAULT) [address] [place] [id number] Culture? Yes Normal [facility] Comment on above: Performed By: #### 1 [id number], [id number], [id number] #### [facility] (DEFAULT) [address] [place] [address] Glucose (U) [Mass/Vol] Negative Normal [facility] Comment on above: Performed By: #### 1 [id number], [id number], [id number] #### [facility] (DEFAULT) [address] [place] [address] Ketones Ql (U) Negative Normal [facility] Comment on above: Performed By: #### 1 [id number], [id number], [id number] #### [facility] (DEFAULT) [address] [place] [address]77 Micro? Indicated [facility] Comment on above: Performed By: #### 1 [id number], [id number], [id number] #### [facility] (DEFAULT) [address] [place] [address] 02976 UA Bilirubin Negative Normal [facility] Comment on above: Performed By: #### 1 [id number], [id number] #### [facility] (DEFAULT) [address] [place] [address] UA Blood TRACE Abnormal NEGATIVE [facility] Comment on above: Performed By: #### 1 [id number], [id number], [id number] #### [facility] (DEFAULT) [address] [place] [address] UA Clarity CLEAR Normal CLEAR [facility] Comment on above: Performed By: #### 1 [id number], [id number] #### [facility] (DEFAULT) [address] [place] [address]87[address] UA Leuk Est MODERATE Abnormal NEGATIVE [facility] Comment on above: Performed By: #### 1 [id number], [id number], [id number] #### [facility] (DEFAULT) [address] [place] [address] UA Nitrite Positive Abnormal NEGATIVE [facility] Comment on above: Performed By: #### 1 [id number], [id number], [id number] #### [facility] (DEFAULT) [address] [place] [address] UA pH 5.5 Normal 5-8 [facility] Comment on above: Performed By: #### 1 [id number], [id number], [id number] #### [facility] (DEFAULT) [address] [place] [address] UA Protein Negative Normal NEGATIVE [facility] Comment on above: Performed By: #### 1 [id number], [id number], [id number] #### [facility] (DEFAULT) [address] [place] [address]995 UA Spec Grav 1.025 Normal 1.001-1.[address] [place] [address] Comment on above: Performed By: #### 1 [id number], [id number] #### [facility] (DEFAULT) [address] [place] [address]563 UA Urobilinogen 0.2 mg/dL Normal 0.2-1.0 [facility] Comment on above: Performed By: #### 1 [id number], [id number], [id number] #### [facility] (DEFAULT) [address] [place] [address] 73710 Urine Source Clean Catch Normal [facility] Comment on above: Performed By: #### 1 [id number], [id number], [id number] #### [facility] (DEFAULT) [address] [place] [address] JOINT PAIN INJECTION 09-06 JOINT PAIN INJECTION [facility] Department of Radiology [address] [place] [address] ===== Patient Name: DELICIA HSU [...] guidance. Electronically signed by:Christy Ochoa. Transcribed by: [email or web address], User Resident: Electronically Signed by: CHRISTY OCHOA @ 09/09/2018 05:57 PM Normal [facility] Comment on above: Order Comment: , Dr. Ochoa , Body Part: Hip , Side: LEFT , Dr. Ochoa , Body Part: Hip , Side: LEFT , , , Ordering Provider - HERMELINDO HILLMAN MD , CT 3D LOWER EXTREMITY WO CON TRAST LEFTon 08-02-2018 CT 3D LOWER EXTREMITY WO CONTRAST LEFT [facility] Department of Radiology [address] [place] [id number] ===== Patient Name: DELICIA HSU : 1935 Sex: F Age: Race: White Pt. 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 MEDICARE NO PC REQ [...] arthritis. Electronically signed by:Coy Jerome. Transcribed by: [email or web address], User Resident: Electronically Signed by: COY JEROME @ 08/08/2018 02:20 PM Normal [facility] Comment on above: Order Comment: , Jessie perkins left hip healing HIP LEFT 1 OR 2 VWS WITH PEL VISon 03-18-2018 HIP LEFT 1 OR 2 VWS WITH PELVIS [facility] Department of Radiology [address] [place] [address] ===== Patient Name: DELICIA HSU : 1935 Sex: F Age: Race: White Pt. 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 Transcribed by: [email or web address], User Resident: Electronically Signed by: COY JEROME @ 03/18/2018 02:19 PM Normal [facility] Comment on above: Order Comment: , , = ========= , Ordering Provider - MIRTHA VELÁSQUEZ PA-C , HIP LEFT 1 OR 2 VWS WITH PEL VISon 01-10-2018 HIP LEFT 1 OR 2 VWS WITH PELVIS [facility] Department of Radiology [address] [place] [id number] ===== Patient Name: DELICIA HSU : 1935 Sex: F Age: Race: White Pt. 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 Electronically signed by:Manjit Whatley. Transcribed by: [email or web address], User Resident: Electronically Signed by: MANJIT WHATLEY @ 01/10/2018 04:38 PM Normal [facility] Comment on above: Order Comment: , Carmella ws (X-RAY, HIP): Radiologic Protocol , Views (X-RAY, HIP): Radiologic Protocol , , , Ordering Rebeka VELÁSQUEZ PA-C , HIP LEFT 1 OR 2 VWS WITH PEL VISon 11-01-2017 HIP LEFT 1 OR 2 VWS WITH PELVIS [facility] Department of Radiology [address] [place] [id number] ===== Patient Name: DELICIA HSU : [...] study. Electronically signed by:Gerson Rodriguez. Transcribed by: [email or web address], User Resident: Electronically Signed by: GERSON RODRIGUEZ @ 11/01/2017 03:25 PM Normal [facility] Comment on above: Order Comment: , Elanae ws (X-RAY, HIP): Radiologic Protocol , Views (X-RAY, HIP): Radiologic Protocol , , , Ordering Provider - MIRTHA VELÁSQUEZ PA-C , HIP LEFT 1 OR 2 VWS WITH PEL VISon 09-21-2017 HIP LEFT 1 OR 2 VWS WITH PELVIS [facility] Department of Radiology [address] [place] [address] ===== Patient Name: DELICIA HSU : 1935 Sex: F Age: Race: White Pt. 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 Transcribed by: [email or web address], User Resident: Electronically Signed by: COY JEROME @ 09/21/2017 03:27 PM Normal [facility] Comment on above: Order Comment: , , = ========= , Ordering Rebeka VELÁSQUEZ PA-C , Vital Signs Date Time Vital Sign Value Performing Clinician Facility 04-13-2024 14:57-0500 Body height 177.8 cm [facility] 04-13-2024 14:57-0500 Body mass index (BMI) [Ratio] 20.2 kg/m2 [facility] 04-13-2024 14:57-0500 Body temperature 97.5 [degF] [facility] 04-13-2024 14:57-0500 Body weight 63.95 kg [facility] 04-13-2024 14:57-0500 Diastolic blood pressure 61 mm[Hg] [facility] 04-13-2024 14:57-0500 Heart rate 51 /min [facility] 04-13-2024 14:57-0500 Systolic blood pressure 162 mm[Hg] [facility] 03-23-2024 14:07-0500 Body height 177.8 cm [facility] 03-23-2024 14:07-0500 Body mass index (BMI) [Ratio] 20.2 kg/m2 [facility] 03-23-2024 14:07-0500 Body weight 63.95 kg [facility] 03-23-2024 14:07-0500 Diastolic blood pressure 67 mm[Hg] [facility] 03-23-2024 14:07-0500 Heart rate 60 /min [facility] 03-23-2024 14:07-0500 Systolic blood pressure 150 mm[Hg] [facility] 02-24-2024 11:12-0500 Body height 177 cm Deuce Kirkland MD Work Phone: [facility] 02-24-2024 11:12-0500 Body mass index (BMI) [Ratio] 21.72 kg/m2 Deuce Kirkland MD Work Phone: [facility] 02-24-2024 11:12-0500 Body temperature 97.7 [degF] Deuce Kirkland MD Work Phone: [facility] 02-24-2024 11:12-0500 Body weight 68.04 kg Deuce Kirkland MD Work Phone: [facility] 02-24-2024 11:12-0500 Diastolic blood pressure 52 mm[Hg] Deuce Kirkland MD Work Phone: [facility] 02-24-2024 11:12-0500 Heart rate 72 /min Deuce Kirkland MD Work Phone: [facility] 02-24-2024 11:12-0500 Respiratory rate 18 /min Deuce Kirkland MD Work Phone: [facility] 02-24-2024 11:12-0500 Systolic blood pressure 132 mm[Hg] Deuce Kirkland MD Work Phone: [facility] 02-21-2024 13:37-0500 Body height 177.8 cm [facility] 02-21-2024 13:37-0500 Body mass index (BMI) [Ratio] 20.7 kg/m2 [facility] 02-21-2024 13:37-0500 Body weight 65.77 kg [facility] 02-21-2024 13:37-0500 Diastolic blood pressure 49 mm[Hg] [facility] 02-21-2024 13:37-0500 Heart rate 62 /min [facility] 02-21-2024 13:37-0500 Systolic blood pressure 110 mm[Hg] [facility] 01-20-2024 10:39-0500 Body height 177 cm Deuce Kirkland MD Work Phone: [facility] 01-20-2024 10:39-0500 Body mass index (BMI) [Ratio] 21.72 kg/m2 Deuce Kirkland MD Work Phone: [facility] 01-20-2024 10:39-0500 Body temperature 98.4 [degF] Deuce Kirkland MD Work Phone: [facility] 01-20-2024 10:39-0500 Body weight 68.04 kg Deuce Kirkland MD Work Phone: [facility] 01-20-2024 10:39-0500 Diastolic blood pressure 52 mm[Hg] Deuce Kirkland MD Work Phone: [facility] 01-20-2024 10:39-0500 Heart rate 84 /min Deuce Kirkland MD Work Phone: [facility] 01-20-2024 10:39-0500 Respiratory rate 18 /min Deuce Kirkland MD Work Phone: [facility] 01-20-2024 10:39-0500 SaO2% (BldA) [Mass fraction] 98 % Deuce Kirkland MD Work Phone: [facility] 01-20-2024 10:39-0500 Systolic blood pressure 148 mm[Hg] Deuce Kirkland MD Work Phone: [facility] 01-07-2024 11:07-0500 Body temperature 97.5 [degF] Deuce Kirkland MD Work Phone: [facility] 01-07-2024 11:07-0500 Diastolic blood pressure 64 mm[Hg] Deuce Kirkland MD Work Phone: [facility] 01-07-2024 11:07-0500 Heart rate 77 /min Deuce Kirkland MD Work Phone: [facility] 01-07-2024 11:07-0500 Respiratory rate 16 /min Deuce Kirkland MD Work Phone: [facility] 01-07-2024 11:07-0500 SaO2% (BldA) [Mass fraction] 100 % Deuce Kirkland MD Work Phone: [facility] 01-07-2024 11:07-0500 Systolic blood pressure 131 mm[Hg] Deuce Kirkland MD Work Phone: [facility] 01-06-2024 03:22-0500 Body mass index (BMI) [Ratio] 21.54 kg/m2 Deuce Kirkland MD Work Phone: [facility] 01-06-2024 03:22-0500 Body weight 68.1 kg Deuce Kirkland MD Work Phone: [facility] 01-01-2024 18:33-0500 Body height 177.8 cm Deuce Kirkland MD Work Phone: [facility] 01-01-2024 16:38-0500 Body temperature 98.6 [degF] Deuce Kirkland MD Work Phone: [facility] 01-01-2024 16:38-0500 SaO2% (BldA) [Mass fraction] 100.3 % Deuce Kirkland MD Work Phone: [facility] 12-31-2023 09:36-0500 Diastolic blood pressure 80 mm[Hg] [facility] 12-31-2023 09:36-0500 Systolic blood pressure 206 mm[Hg] [facility] 12-31-2023 09:05-0500 Body height 177.8 cm [facility] 12-31-2023 09:05-0500 Body mass index (BMI) [Ratio] 20.69 kg/m2 [facility] 12-31-2023 09:05-0500 Body temperature 96.91 [degF] [facility] 12-31-2023 09:05-0500 Body weight 65.4 kg [facility] 12-31-2023 09:05-0500 Heart rate 56 /min [facility] 12-31-2023 09:05-0500 Respiratory rate 18 /min [facility] 12-31-2023 09:05-0500 SaO2% (BldA) [Mass fraction] 97 % [facility] 12-30-2023 13:07-0500 Body mass index (BMI) [Ratio] 20.23 kg/m2 Deuce Kirkland MD Work Phone: [facility] 12-30-2023 13:07-0500 Body weight 63.96 kg Deuce Kirkland MD Work Phone: [facility] 12-30-2023 13:07-0500 Diastolic blood pressure 68 mm[Hg] Deuce Kirkland MD Work Phone: [facility] 12-30-2023 13:07-0500 Heart rate 65 /min Deuce Kirkland MD Work Phone: [facility] 12-30-2023 13:07-0500 Systolic blood pressure 186 mm[Hg] Deuce Kirkland MD Work Phone: [facility] 12-23-2023 14:27-0500 Body height 177.8 cm [facility] 12-23-2023 14:27-0500 Body mass index (BMI) [Ratio] 19.37 kg/m2 [facility] 12-23-2023 14:27-0500 Body weight 61.24 kg [facility] 12-09-2023 10:02-0400 Body height 177.8 cm Deuce Kirkland MD Work Phone: [facility] 12-09-2023 10:02-0400 Body mass index (BMI) [Ratio] 19.66 kg/m2 Deuce Kirkland MD Work Phone: [facility] 12-09-2023 10:02-0400 Body temperature 97.3 [degF] Deuce Kirkland MD Work Phone: [facility] 12-09-2023 10:020400 Body weight 62.14 kg Deuce Kirkland MD Work Phone: [facility] 12-09-2023 10:02-0400 Diastolic blood pressure 72 mm[Hg] Deuce Kirkland MD Work Phone: [facility] 12-09-2023 10:02-0400 Heart rate 78 /min Deuce Kirkland MD Work Phone: [facility] 12-09-2023 10:02-0400 SaO2% (BldA) [Mass fraction] 98 % Deuce Kirkland MD Work Phone: [facility] 12-09-2023 10:02-0400 Systolic blood pressure 172 mm[Hg] Deuce Kirkland MD Work Phone: [facility] 11-16-2023 09:04-0400 Body height 175.3 cm [facility] 11-16-2023 09:04-0400 Body mass index (BMI) [Ratio] 19.94 kg/m2 [facility] 11-16-2023 09:04-0400 Body weight 61.24 kg [facility] 10-27-2023 14:41-0400 Body height 176.5 cm [facility] 10-27-2023 14:41-0400 Body mass index (BMI) [Ratio] 19.8 kg/m2 [facility] 10-27-2023 14:41-0400 Body weight 61.69 kg [facility] 10-14-2023 10:22-0400 Body height 177.8 cm Deuce Kirkland MD Work Phone: [facility] 10-14-2023 10:22-0400 Body mass index (BMI) [Ratio] 19.51 kg/m2 Deuce Kirkland MD Work Phone: [facility] 10-14-2023 10:22-0400 Body weight 61.69 kg Deuce Kirkland MD Work Phone: [facility] 10-14-2023 10:22-0400 Diastolic blood pressure 76 mm[Hg] Deuce Kirkland MD Work Phone: [facility] 10-14-2023 10:22-0400 Heart rate 72 /min Deuce Kirkland MD Work Phone: [facility] 10-14-2023 10:22-0400 SaO2% (BldA) [Mass fraction] 93 % Deuce Kirkland MD Work Phone: [facility] 10-14-2023 10:22-0400 Systolic blood pressure 148 mm[Hg] Deuce Kirkland MD Work Phone: [facility] 06-17-2023 14:00-0400 Diastolic blood pressure 68 mm[Hg] Deuce Kirkland MD Work Phone: [facility] 06-17-2023 14:00-0400 Heart rate 72 /min Deuce Kirkland MD Work Phone: [facility] 06-17-2023 14:00-0400 Systolic blood pressure 124 mm[Hg] Deuce Kirkland MD Work Phone: [facility] 06-17-2023 13:59-0400 Body height 177.8 cm Deuce Kirkland MD Work Phone: [facility] 06-17-2023 13:59-0400 Body mass index (BMI) [Ratio] 19.63 kg/m2 Deuce Kirkland MD Work Phone: [facility] 06-17-2023 13:59-0400 Body weight 62.05 kg Deuce Kirkland MD Work Phone: [facility] 05-24-2023 13:35-0400 Body height 177.8 cm MD Gypsy Mcmahon Work Phone: [facility] 05-24-2023 13:35-0400 Body mass index (BMI) [Ratio] 18.8 kg/m2 MD Gypsy Mcmahon Work Phone: [facility] 05-24-2023 13:35-0400 Body temperature 97.7 [degF] MD Gypsy Mcmahon Work Phone: [facility] 05-24-2023 13:35-0400 Body weight 59.42 kg MD Gypsy Mcmahon Work Phone: [facility] 05-24-2023 13:35-0400 Diastolic blood pressure 54 mm[Hg] MD Gypsy Mcmahon Work Phone: [facility] 05-24-2023 13:35-0400 Heart rate 63 /min MD Gypsy Mcmahon Work Phone: [facility] 05-24-2023 13:35-0400 Systolic blood pressure 127 mm[Hg] MD Gypsy Mcmahon Work Phone: [facility] 05-21-2023 10:26-0400 Body height 177.8 cm MD Gypsy Mcmahon Work Phone: [facility] 05-21-2023 09:54-0400 Body mass index (BMI) [Ratio] 18.6 kg/m2 MD Gypsy Mcmahon Work Phone: [facility] 05-21-2023 09:54-0400 Body weight 58.96 kg MD Gypsy Mcmahon Work Phone: [facility] 05-05-2023 16:40-0400 Diastolic blood pressure 71 mm[Hg] MD Jacinto Max Work Phone: [facility] 05-05-2023 16:40-0400 Systolic blood pressure 170 mm[Hg] MD Jacinto Max Work Phone: [facility] 05-05-2023 16:36-0400 Body height 177.8 cm MD Jacinto Max Work Phone: [facility] 05-05-2023 16:36-0400 Body temperature 98.1 [degF] MD Jacinto Max Work Phone: [facility] 05-05-2023 16:36-0400 Body weight 59.87 kg MD Jacinto Max Work Phone: [facility] 05-05-2023 16:36-0400 Heart rate 71 /min MD Jacinto Max Work Phone: [facility] 05-05-2023 16:36-0400 Respiratory rate 18 /min MD Jacinto Max Work Phone: [facility] 05-05-2023 16:36-0400 SaO2% (BldA) [Mass fraction] 98 % MD Jacinto Max Work Phone: [facility] 04-15-2023 13:30-0500 Body height 167.64 cm MD Jacinto Max Work Phone: [facility] 04-15-2023 13:30-0500 Body mass index (BMI) [Ratio] 20.8 kg/m2 MD Jacinto Max Work Phone: [facility] 04-15-2023 13:30-0500 Body temperature 97.2 [degF] MD Jacinto Max Work Phone: [facility] 04-15-2023 13:30-0500 Body weight 58.57 kg MD Jacinto Max Work Phone: [facility] 04-15-2023 13:30-0500 Diastolic blood pressure 75 mm[Hg] MD Jacinto Max Work Phone: [facility] 04-15-2023 13:30-0500 Heart rate 60 /min MD Jacinto Max Work Phone: [facility] 04-15-2023 13:30-0500 Systolic blood pressure 165 mm[Hg] MD Jacinto Max Work Phone: [facility] 02-26-2023 10:00-0500 Body height 167.64 cm MD Jacinto Max Work Phone: [facility] 02-26-2023 10:00-0500 Diastolic blood pressure 76 mm[Hg] MD Jacinto Max Work Phone: [facility] 02-26-2023 10:00-0500 Systolic blood pressure 156 mm[Hg] MD Jacinto Max Work Phone: [facility] 02-25-2023 10:15-0500 Body height 175.26 cm MD Jacinto Max Work Phone: [facility] 02-25-2023 10:15-0500 Body weight 59.1 kg MD Jacinto Max Work Phone: [facility] 02-25-2023 10:02-0500 Diastolic blood pressure 74 mm[Hg] MD Jacinto Max Work Phone: [facility] 02-25-2023 10:02-0500 Heart rate 67 /min MD Jacinto Max Work Phone: [facility] 02-25-2023 10:02-0500 Systolic blood pressure 157 mm[Hg] MD Jacinto Max Work Phone: [facility] 02-18-2023 14:00-0500 Body height 167.64 cm Jacinto Max Other [facility] 02-18-2023 14:00-0500 Body mass index (BMI) [Ratio] 20.66 kg/m2 Jacinto Max Other [facility] [employer] Other 02-18-2023 14:00-0500 Body temperature 97.2 [degF] Jacinto Max Other [employer] [facility] [employer] Other 02-18-2023 14:00-0500 Body weight 58.06 kg Jacinto Max Other [facility] [employer] Other 02-18-2023 14:00-0500 Body weight 58.05 kg MD Jacinto Max Work Phone: [facility] 02-18-2023 14:00-0500 Diastolic blood pressure 66 mm[Hg] Jacinto Max Other [facility] 02-18-2023 14:00-0500 Systolic blood pressure 150 mm[Hg] Jacinto Max Other [facility] 02-16-2023 13:30-0500 Body height 167.64 cm Gypsy Mcmahon Other [facility] 02-16-2023 13:30-0500 Body mass index (BMI) [Ratio] 20.66 kg/m2 Gypsy Mcmahon Other [facility] [employer] Other 02-16-2023 13:30-0500 Body weight 58.06 kg Gypsy Mcmahon Other [facility] [employer] Other 02-16-2023 13:30-0500 Body weight 58.05 kg MD Jacinto Max Work Phone: [facility] 02-16-2023 13:30-0500 Diastolic blood pressure 68 mm[Hg] Gypsy Mcmahon Other [facility] 02-16-2023 13:30-0500 SaO2% (BldA) [Mass fraction] 96 % Gypsy Mcmahon Other [facility] [employer] Other 02-16-2023 13:30-0500 Systolic blood pressure 140 mm[Hg] Gypsy Mcmahon Other [facility] 02-04-2023 09:09-0500 Heart rate 84 /min MALATHI DEB [facility] 02-04-2023 09:09-0500 SaO2% (BldA) [Mass fraction] 95 % MALATHI DEB [facility] 02-04-2023 09:08-0500 Diastolic blood pressure 88 mm[Hg] MALATHI DEB [facility] 02-04-2023 09:08-0500 Mean blood pressure 121 mm[Hg] MALATHI DEB [facility] 02-04-2023 09:08-0500 Systolic blood pressure 188 mm[Hg] MALATHI DEB [facility] 02-04-2023 09:08-0500 Respiratory rate 20 /min MALATHI DEB [facility] 02-04-2023 09:08-0500 Body temperature 97.7 [degF] MALATHI DEB [facility] 02-03-2023 09:15-0500 Heart rate 77 /min MALATHI DEB [facility] 02-03-2023 09:15-0500 SaO2% (BldA) [Mass fraction] 97 % MALATHI DEB [facility] 02-03-2023 09:14-0500 Respiratory rate 18 /min MALATHI DEB [facility] 02-03-2023 09:14-0500 Diastolic blood pressure 97 mm[Hg] MALATHI DEB [facility] 02-03-2023 09:14-0500 Mean blood pressure 130 mm[Hg] MALATHI DEB [facility] 02-03-2023 09:14-0500 Systolic blood pressure 197 mm[Hg] MALATHI DEB [facility] 02-03-2023 09:13-0500 Body temperature 98.06 [degF] MALATHI DEB [facility] 02-02-2023 09:10-0500 Heart rate 75 /min MALATHI DEB [facility] 02-02-2023 09:10-0500 SaO2% (BldA) [Mass fraction] 93 % MALATHI DEB [facility] 02-02-2023 09:09-0500 Respiratory rate 20 /min MALATHI DEB [facility] 02-02-2023 09:08-0500 Diastolic blood pressure 87 mm[Hg] MALATHI DEB [facility] 02-02-2023 09:08-0500 Mean blood pressure 123 mm[Hg] MALATHI DEB [facility] 02-02-2023 09:08-0500 Systolic blood pressure 194 mm[Hg] MALATHI DEB [facility] 02-02-2023 09:08-0500 Body temperature 97.7 [degF] MALATHI DEB [facility] 02-01-2023 09:50-0500 Heart rate 77 /min MALATHI DEB [facility] 02-01-2023 09:50-0500 Mean blood pressure 115 mm[Hg] MALATHI DEB [facility] 02-01-2023 09:10-0500 Heart rate 84 /min MALATHI DEB [facility] 01-29-2023 11:26-0500 Heart rate 75 /min MALATHI DEB [facility] 01-29-2023 11:26-0500 SaO2% (BldA) [Mass fraction] 95 % MALATHI DEB [facility] 01-29-2023 11:26-0500 Respiratory rate 16 /min MALATHI DEB [facility] 01-29-2023 11:25-0500 Diastolic blood pressure 83 mm[Hg] MALATHI DEB [facility] 01-29-2023 11:25-0500 Mean blood pressure 108 mm[Hg] MALATHI DEB [facility] 01-29-2023 11:25-0500 Systolic blood pressure 158 mm[Hg] MALATHI DEB [facility] 01-29-2023 11:25-0500 Body temperature 98.06 [degF] MALATHI DEB [facility] 01-29-2023 10:54-0500 Heart rate 74 /min MALATHI DEB [facility] 01-29-2023 10:54-0500 SaO2% (BldA) [Mass fraction] 97 % MALATHI DEB [facility] 01-29-2023 10:54-0500 Respiratory rate 16 /min MALATHI DEB [facility] 01-29-2023 10:53-0500 Body temperature 97.52 [degF] MALATHI DEB [facility] 01-29-2023 10:53-0500 Diastolic blood pressure 84 mm[Hg] MALATHI DEB [facility] 01-29-2023 10:53-0500 Mean blood pressure 104 mm[Hg] MALATHI DEB [facility] 01-29-2023 10:53-0500 Systolic blood pressure 146 mm[Hg] MALATHI DEB [facility] 01-12-2023 13:30-0500 Body height 167.64 cm Hunter Brown Other [facility] Other 01-12-2023 13:30-0500 Body mass index (BMI) [Ratio] 22 kg/m2 Hunter Brown Other [facility] Other 01-12-2023 13:30-0500 Body weight 61.83 kg Hunter Brown Other [facility] Other 01-12-2023 13:30-0500 Diastolic blood pressure 60 mm[Hg] Hunter Brown Other [facility] Other 01-12-2023 13:30-0500 Systolic blood pressure 137 mm[Hg] Hunter Brown Other [facility] Other 01-05-2023 11:30-0500 Body height 167.64 cm Gypsy Mcmahon Other [facility] Other 01-05-2023 11:30-0500 Body mass index (BMI) [Ratio] 21.63 kg/m2 Gypsy Mcmahon Other [facility] Other 01-05-2023 11:30-0500 Body weight 60.78 kg Gypsy Mcmahon Other [facility] Other 01-05-2023 11:30-0500 Diastolic blood pressure 72 mm[Hg] Gypsy Mcmahon Other [facility] Other 01-05-2023 11:30-0500 Systolic blood pressure 162 mm[Hg] Gypsy Mcmahon Other [facility] Other 12-28-2022 13:30-0500 Body height 167.64 cm Malathi Velázquez Other [facility] Other 12-28-2022 13:30-0500 Body mass index (BMI) [Ratio] 19.98 kg/m2 Malathi Velázquez Other [facility] Other 12-28-2022 13:30-0500 Body weight 56.16 kg Malathi Melania Other [facility] Other 12-28-2022 13:30-0500 Diastolic blood pressure 78 mm[Hg] Malathi Melania Other [facility] Other 12-28-2022 13:30-0500 Systolic blood pressure 146 mm[Hg] Malathi Melania Other [facility] Other 12-15-2022 11:15-0500 Body height 167.64 cm Gypsy Mcmahon Other [facility] Other 12-15-2022 11:15-0500 Body mass index (BMI) [Ratio] 21.53 kg/m2 Gypsy Mcmahon Other [facility] Other 12-15-2022 11:15-0500 Body weight 60.51 kg Gypsy Mcmahon Other [facility] Other 12-15-2022 11:15-0500 Diastolic blood pressure 73 mm[Hg] Gypsy Mcmahon Other [facility] Other 12-15-2022 11:15-0500 Systolic blood pressure 178 mm[Hg] Gypsy Mcmahon Other [facility] Other 09-22-2022 14:14-0400 Blood Pressure Location MALATHI VIEIRA [facility] 09-22-2022 14:14-0400 Diastolic blood pressure 90 mm[Hg] MALATHI VIEIRA [facility] 09-22-2022 14:14-0400 Heart rate 78 /min MALATHI VIEIRA [facility] 09-22-2022 14:14-0400 Systolic blood pressure 142 mm[Hg] MALATHI VIEIRA [facility] 09-01-2022 14:15-0400 Body height 167.64 cm Gypsy Mcmahon Other [facility] Other 09-01-2022 14:15-0400 Body mass index (BMI) [Ratio] 21.14 kg/m2 Gypsy Mcmahon Other [facility] Other 09-01-2022 14:15-0400 Body weight 59.42 kg Gypsy Mcmahon Other [facility] Other 09-01-2022 14:15-0400 Diastolic blood pressure 56 mm[Hg] Gypsy Mcmahon Other [facility] Other 09-01-2022 14:15-0400 Systolic blood pressure 132 mm[Hg] Gypsy Mcmahon Other [facility] Other 06-09-2022 13:42-0400 Diastolic blood pressure 71 mm[Hg] Marvin KWON [facility] 06-09-2022 13:42-0400 Heart rate 59 /min Marvin KWON [facility] 06-09-2022 13:42-0400 Systolic blood pressure 183 mm[Hg] Marvin KWON [facility] 04-24-2022 11:30-0400 Body height 167.64 cm Hunter Brown Other [facility] Other 04-24-2022 11:30-0400 Body mass index (BMI) [Ratio] 22.11 kg/m2 Hunter Brown Other [facility] Other 04-24-2022 11:30-0400 Body weight 62.14 kg Hunter Brown Other [facility] Other 04-24-2022 11:30-0400 Diastolic blood pressure 70 mm[Hg] Hunter Brown Other [facility] Other 04-24-2022 11:30-0400 Systolic blood pressure 159 mm[Hg] Hunter Brown Other [facility] Other 04-07-2022 14:15-0500 Body height 167.64 cm Gypsy Mcmahon Other [facility] Other 04-07-2022 14:15-0500 Body mass index (BMI) [Ratio] 21.79 kg/m2 Gypsy Mcmahon Other [facility] Other 04-07-2022 14:15-0500 Body weight 61.24 kg Gypsy Mcmahon Other [facility] Other 04-07-2022 14:15-0500 Diastolic blood pressure 62 mm[Hg] Gypsy Mcmahon Other [facility] Other 04-07-2022 14:15-0500 Systolic blood pressure 130 mm[Hg] Gypsy Mcmahon Other [facility] Other 03-11-2022 13:35-0500 Body temperature 97.5 [degF] MD Gypsy Mcmahon Work Phone: [facility] 03-11-2022 13:35-0500 Diastolic blood pressure 61 mm[Hg] MD Gypsy Mcmahon Work Phone: [facility] 03-11-2022 13:35-0500 Heart rate 60 /min MD Gypsy Mcmahon Work Phone: [facility] 03-11-2022 13:35-0500 Respiratory rate 18 /min MD Gypsy Mcmahon Work Phone: [facility] 03-11-2022 13:35-0500 SaO2% (BldA) [Mass fraction] 96 % MD Gypsy Mcmahon Work Phone: [facility] 03-11-2022 13:35-0500 Systolic blood pressure 135 mm[Hg] MD Gypsy Mcmahon Work Phone: [facility] 02-16-2022 10:45-0500 Body height 167.64 cm Gypsy Mcmahon Other [facility] [employer] Other 02-16-2022 10:45-0500 Body mass index (BMI) [Ratio] 21.46 kg/m2 Gypsy Mcmahon Other [employer] [facility] [employer] Other 02-16-2022 10:45-0500 Body weight 60.33 kg Gypsy Mcmahon Other [facility] Other 02-16-2022 10:45-0500 Diastolic blood pressure 70 mm[Hg] Gypsy Mcmahon Other [facility] Other 02-16-2022 10:45-0500 Systolic blood pressure 120 mm[Hg] Gypsy Mcmahon Other [facility] Other 02-11-2022 12:00-0500 Body height 172.72 cm Hunter Brown Other [facility] Other 02-11-2022 12:00-0500 Body mass index (BMI) [Ratio] 20.83 kg/m2 Hunter Brown Other [facility] Other 02-11-2022 12:00-0500 Body weight 62.14 kg Hunter Brown Other [facility] Other 02-11-2022 12:00-0500 Diastolic blood pressure 68 mm[Hg] Hunter Brown Other [facility] Other 02-11-2022 12:00-0500 Systolic blood pressure 144 mm[Hg] Hunter Brown Other [facility] Other 01-05-2022 10:30-0500 Body height 172.72 cm Hunter Brown Other [facility] Other 01-05-2022 10:30-0500 Body mass index (BMI) [Ratio] 22.04 kg/m2 Hunter Brown Other [facility] Other 01-05-2022 10:30-0500 Body weight 65.77 kg Hunter Brown Other [facility] Other 01-05-2022 10:30-0500 Diastolic blood pressure 78 mm[Hg] Hunter Brown Other [facility] Other 01-05-2022 10:30-0500 Systolic blood pressure 166 mm[Hg] Hunter Brown Other [facility] Other 03-27-2021 12:00-0500 Body height 172.72 cm Giana Villar Other [facility] Other 02-17-2022 12:00-0500 Body mass index (BMI) [Ratio] 22.96 kg/m2 Giana Villar Other [facility] Other 03-27-2021 12:00-0500 Body weight 68.49 kg Giana Villar Other [facility] Other 01-27-2021 10:45-0500 Body height 172.72 cm Giana Villar Other [facility] Other 01-27-2021 10:45-0500 Body mass index (BMI) [Ratio] 24.48 kg/m2 Giana Villar Other [facility] Other 01-27-2021 10:45-0500 Body weight 73.03 kg Giana Villar Other [facility] Other Encounters Encounter Date Encounter Type Care Provider Facility Start: 04-13-2024 End: 04-13-2024 ambulatory [facility] Work Phone: Start: 04-13-2024 End: 04-13-2024 Patient encounter procedure [facility] Physician [facility] Work Phone: Start: 04-10-2024 Non-patient / Non-visit [facility] Work Phone: Start: 04-08-2024 End: 04-08-2024 ambulatory Clementina A Diab Facility:[facility] Start: 04-08-2024 Non-patient / [facility] Work Phone: Start: 04-07-2024 Non-patient / Non-visit [facility] Work Phone: Start: 03-23-2024 End: 04-05-2024 Telephone encounter Deuce Kirkland MD Work Phone: [facility] Start: 03-23-2024 End: 03-23-2024 ambulatory [facility] Work Phone: Start: 03-23-2024 End: 03-23-2024 Patient encounter procedure [facility] Work Phone: Start: 03-02-2024 End: 03-02-2024 ambulatory [facility] Start: 02-28-2024 End: 02-28-2024 Office outpatient visit 25 minutes Sunny Ingram PHYSICIAN RELATIONS MANAGER Work Phone: [facility] Comment on above: Primary osteoarthrit is of left knee (Primary Dx); Left knee pain, unspecified chronicity; Olecranon bursitis, right elbow Start: 02-28-2024 End: 02-28-2024 ambulatory SUNNY INGRAM Not Available Start: 02-28-2024 End: 02-28-2024 Bamboo flowsheet Sunny Ingram PHYSICIAN RELATIONS MANAGER Work Phone: [facility] Start: 02-28-2024 End: 02-28-2024 Bamboo flowsheet Sunny Ingram PHYSICIAN RELATIONS MANAGER Work Phone: [facility] Start: 02-24-2024 End: 02-24-2024 Office outpatient visit 25 minutes Deuce Kirkland MD Work Phone: [facility] Comment on above: 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); Critical limb ischemia of left lower extremity with rest pain (CMS-HCC) Start: 02-21-2024 End: 02-21-2024 Patient encounter procedure [facility] Work Phone: Start: 02-18-2024 End: 02-18-2024 ambulatory DEUCE KIRKLAND [facility] Start: 01-20-2024 End: 01-20-2024 Postop follow up visit related to original px Deuce Kirkland MD Work Phone: [facility] Comment on above: 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) Start: 01-18-2024 ambulatory [facility] Start: 01-10-2024 Non-patient / Non-visit [facility] [place] Work Phone: Start: 01-08-2024 End: 01-08-2024 Evaluation and management of inpatient GYPSY MCMAHON [facility] Start: 01-04-2024 End: 01-08-2024 Evaluation and management of inpatient HILDA SMITH [facility] Start: 01-01-2024 End: 01-08-2024 Evaluation and management of inpatient [facility] Start: 01-01-2024 End: 01-07-2024 Evaluation and management of inpatient 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, unspecified ulceration site (CMS-HCC); PAD (peripheral artery disease) (CMS-HCC); Encounter for therapeutic drug monitoring Start: 12-31-2023 End: 12-31-2023 ambulatory [facility] Start: 12-30-2023 End: 12-30-2023 Office outpatient visit 25 minutes Deuce Kirkland MD Work Phone: [facility] Comment on above: 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); Venous insufficiency (chronic) (peripheral) Start: 12-30-2023 End: 12-30-2023 ambulatory [facility] Start: 12-27-2023 Non-patient / Non-visit [facility] Work Phone: Start: 12-24-2023 End: 12-24-2023 Evaluation and management of inpatient CHAPINCITO SUE [facility] Start: 12-24-2023 End: 12-24-2023 Evaluation and management of inpatient [facility] Start: 12-23-2023 End: 12-23-2023 ambulatory GYPSY MCMAHON [facility] Start: 12-22-2023 End: 12-22-2023 ambulatory [facility] Start: 12-15-2023 End: 12-15-2023 Orders Only Marj Kelly [facility] Comment on above: Venous ulcer of ankl e, right ([facility]-HCC) (Primary Dx) Start: 12-14-2023 End: 12-14-2023 Bamboo flowsheet Sunny Ingram NP Work Phone: [facility] Start: 12-14-2023 End: 12-14-2023 Bamboo flowsheet Sunny Ingram NP Work Phone: [facility] Start: 12-14-2023 End: 12-14-2023 Office outpatient visit 10 minutes Sunny Ingram NP Work Phone: [facility] Comment on above: Trochanteric bursiti s of left hip (Primary Dx); Primary osteoarthritis of left hip; History of left hip replacement Start: 12-14-2023 End: 12-14-2023 ambulatory SUNNY INGRAM Not Available Start: 12-09-2023 End: 12-09-2023 Office outpatient visit 25 minutes Deuce Kirkland MD Work Phone: [facility] Comment on above: 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 ([facility]-HCC) (Primary Dx); Venous ulcer of ankle, right (CMS-HCC); Critical limb ischemia of both lower extremities with rest pain (CMS-HCC) Start: 11-18-2023 End: 11-19-2023 ambulatory [facility] Start: 11-16-2023 End: 11-16-2023 Evaluation and management of inpatient GYPSY MCMAHON [facility] Start: 11-16-2023 End: 11-16-2023 Admission to [facility] Call Provider 1 [facility] [place] Start: 11-09-2023 End: 11-09-2023 ambulatory [facility] Start: 11-09-2023 End: 11-09-2023 Encounter for other preprocedural examination [facility] Start: 11-05-2023 End: 11-05-2023 Evaluation and management of inpatient [facility] Start: 10-27-2023 End: 10-27-2023 Evaluation and management of inpatient GYPSY MCMAHON [facility] Start: 10-27-2023 End: 10-27-2023 Admission to [facility] Pat Phone Call Provider 3 Madeline [facility] Start: 10-27-2023 End: 10-27-2023 ambulatory [facility] Start: 10-20-2023 End: 10-20-2023 ambulatory [facility] Start: 10-14-2023 End: 10-14-2023 Office outpatient visit 40 minutes Deuce Kirkland MD Work Phone: 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 ([facility]-HCC) (Primary Dx); Venous ulcer of right leg ([facility]-HCC) Start: 09-01-2023 Patient encounter procedure [facility] Start: 06-23-2023 End: 06-23-2023 ambulatory [facility] Start: 06-17-2023 End: 06-17-2023 Office outpatient visit 25 minutes Deuce Kirkland MD Work Phone: [facility] Comment on above: PAD (peripheral jhonatan ry disease) ([facility]-HCC) (Primary Dx) Start: 06-17-2023 End: 06-17-2023 ambulatory [facility] Start: 06-15-2023 End: 06-15-2023 ambulatory MALATHISAM VIEIRA Facility:[facility] Start: 06-15-2023 End: 06-15-2023 Patient encounter procedure MALATHI VIEIRA [facility] Start: 05-28-2023 End: 05-28-2023 Patient encounter procedure MD Gypsy Mcmahon Work Phone: [facility] [employer] Work Phone: Start: 05-28-2023 End: 05-28-2023 ambulatory MD Gypsy Mcmahon Work Phone: [facility] Work Phone: Start: 05-25-2023 Non-patient / Non-visit MD Dontae Mcmahon Work Phone: [facility] Work Phone: Start: 05-24-2023 End: 05-24-2023 Patient encounter procedure MD Gypsy Mcmahon Work Phone: [facility] Work Phone: Start: 05-21-2023 End: 05-21-2023 Patient encounter procedure MD Gypsy Mcmahon Work Phone: [facility] Work Phone: Start: 05-06-2023 Non-patient / Non-visit MD Dontae Mcmahon Work Phone: [facility] Work Phone: Start: 05-05-2023 End: 05-05-2023 Emergency department patient visit MD Jacinto Max Work Phone: [facility]-Emergency Room Work Phone: Start: 05-01-2023 Non-patient / Non-visit MD Jody Max Work Phone: [facility] Work Phone: Start: 04-15-2023 End: 04-15-2023 Patient encounter procedure MD Jacinto Max Work Phone: [facility] Infectious Disease Work Phone: Start: 04-06-2023 Non-patient / Non-visit MD Jody Max Work Phone: [facility] [employer] Work Phone: Start: 03-12-2023 End: 03-12-2023 ambulatory Jacinto Max Other [facility] Other Start: 03-12-2023 Telephone encounter Jacinto BA [facility] Start: 03-11-2023 End: 03-11-2023 ambulatory Jacinto Max Other [facility] Other Start: 03-11-2023 Telephone encounter Jacinto BA [facility] Start: 03-02-2023 End: 03-02-2023 ambulatory Gypsy Mcmahon Other [facility] Other Start: 03-02-2023 Telephone encounter Gypsy Mcmahon [facility] Start: 02-26-2023 End: 02-26-2023 Patient encounter procedure MD Jacinto Max Work Phone: [facility]- Start: 02-25-2023 End: 02-25-2023 ambulatory MD Jacinto Max Work Phone: [facility] Work Phone: Start: 02-25-2023 End: 02-25-2023 Discharged Recurring MD Jacinto Max Work Phone: [facility]-Infusion Therapy - O/P Work Phone: Start: 02-18-2023 End: 02-18-2023 ambulatory Jacinto Max Other [facility] Other Start: 02-18-2023 Office outpatient ne w 45 minutes Jacinto EUGEN[facility] Start: 02-18-2023 End: 02-18-2023 Patient encounter procedure MD Jacinto Max Work Phone: [facility] Physician [facility] Infectious Disease Work Phone: Start: 02-16-2023 End: 02-16-2023 ambulatory Gypsy Mcmahon Other [facility] Other Start: 02-16-2023 Office outpatient vi sit 15 minutes Gypsy Mcmahon [facility] Start: 02-16-2023 End: 02-16-2023 Patient encounter procedure MD Jacinto Max Work Phone: [facility] Work Phone: Start: 01-29-2023 End: 05-05-2023 ambulatory MALATHI VIEIRA Facility:[facility] Start: 01-29-2023 End: 01-29-2023 Patient encounter procedure MALATHI GUERRERORY [facility] Start: 01-29-2023 End: 05-05-2023 Recurring MALATHI Wade VIEIRA [facility] Start: 01-26-2023 End: 01-26-2023 Patient encounter procedure MALATHI Olvera DEB [facility] Start: 01-26-2023 End: 01-26-2023 ambulatory MALATHI E DEB [facility] [employer] Other Start: 01-26-2023 Telephone encounter Hunter brady [facility] Start: 01-20-2023 End: 01-20-2023 ambulatory Hunter Brown Other [facility] Other Start: 01-20-2023 Telephone encounter Hunter brady [facility] Start: 01-12-2023 End: 01-12-2023 ambulatory Hunter Brown Other [facility] Other Start: 01-12-2023 Office outpatient vi sit 25 minutes Hunter Brown [facility] G[facility] Start: 01-12-2023 End: 01-12-2023 Patient encounter procedure MD Jacinto Max Work Phone: [facility] Phys[facility] Gastroenterology Work Phone: Start: 01-11-2023 End: 01-11-2023 ambulatory Gypsyenedina Mcmahon Other [facility] Other Start: 01-11-2023 Telephone encounter Gypsy Mcmahon [facility] Start: 01-05-2023 End: 01-05-2023 ambulatory Gypsyenedina Mcmahon Other [facility] Other Start: 01-05-2023 Telephone encounter Gypsy Mcmahon [facility] Start: 01-05-2023 Transitional care manage srvc 14 day discharge Gypsy Mcmahon [facility] Start: 01-05-2023 End: 01-05-2023 Patient encounter procedure MD Jacinto Max Work Phone: [facility] Physician [facility] Work Phone: Start: 12-30-2022 End: 12-30-2022 ambulatory Malathi Velázquez Other [facility] Other Start: 12-30-2022 Telephone encounter Malathi arias [facility] Start: 12-28-2022 End: 12-28-2022 ambulatory Malathi Velázquez Other [facility] Other Start: 12-28-2022 Office outpatient vi sit 15 minutes Malathi Velázquez [facility] Start: 12-28-2022 End: 12-28-2022 Patient encounter procedure MD Jacinto Max Work Phone: [facility] Work Phone: Start: 12-15-2022 End: 12-15-2022 ambulatory Gypsy Mcmahon Other [facility] Other Start: 12-15-2022 Office outpatient vi sit 15 minutes Gypsy Mcmahon [facility] Start: 12-15-2022 Telephone encounter Gypsy Mcmahon [facility] Start: 12-15-2022 End: 12-15-2022 Patient encounter procedure MD Jacinto Max Work Phone: [facility] Work Phone: Start: 09-22-2022 End: 09-22-2022 ambulatory MALATHI GUERRERORY Facility:[facility] Start: 09-22-2022 End: 09-22-2022 Patient encounter procedure MALATHI VIEIRA [facility] Start: 09-10-2022 End: 09-10-2022 ambulatory Jose G Ellington Other [facility] Other Start: 09-10-2022 Nursing evaluation o f patient and report Jose G Ellington [facility] Start: 09-08-2022 End: 09-08-2022 ambulatory Hunter Brown Other [employer] Other Start: 09-08-2022 Telephone encounter Hunter Palomo [facility] Start: 09-01-2022 End: 09-01-2022 ambulatory Gypsy Mcmahon Other [facility] Other Start: 09-01-2022 Office outpatient vi sit 15 minutes Gypsy Mcmahon [facility] Start: 08-27-2022 End: 08-27-2022 ambulatory Gypsy Mcmahon Other [employer] Other Start: 08-27-2022 Telephone encounter Gypsy Mcmahon [facility] Start: 06-09-2022 End: 06-09-2022 Patient encounter procedure Marvin KWON [facility] Start: 05-27-2022 End: 05-28-2022 ambulatory MALATHI VIEIRA Facility:H1 Start: 05-19-2022 End: 05-19-2022 Patient encounter procedure MALATHI VIEIRA [facility] Tatyana Start: 05-14-2022 End: 05-14-2022 ambulatory Gypsy Mcmahon Other [facility] Other Start: 05-14-2022 Telephone encounter Gypsy Mcmahon [facility] Start: 05-11-2022 End: 05-12-[address] GYPSY MCMAHON Facility:H1 Start: 05-01-2022 (Televisit) Televisit Gypsy Mcmahon [facility] Start: 05-01-2022 End: 05-01-2022 ambulatory yGpsy Mcmahon Other [facility] Other Start: 05-01-2022 Telephone encounter Gypsy Mcmahon [facility] Start: 04-28-2022 End: 04-29-[address] GYPSY MCMAHON Facility:H1 Start: 04-24-2022 End: 04-24-2022 ambulatory Hunter Brown Other [facility] Other Start: 04-24-2022 Office outpatient vi sit 15 minutes Hunter Brown [facility] Start: 04-16-2022 End: 04-16-2022 ambulatory Gypsy Mcmahon Other [employer] Other Start: 04-16-2022 Telephone encounter Gypsy Mcmahon [facility] Start: 04-14-2022 End: 04-14-[address] GYPSY MCMAHON Facility:H1 Start: 04-07-2022 End: 04-07-2022 ambulatory Gypsy Mcmahon Other [employer] Other Start: 04-07-2022 Office outpatient vi sit 15 minutes Gypsy Mcmahon [facility] Start: 04-03-2022 End: 04-03-2022 ambulatory Gypsy Mcmahno Other [employer] Other Start: 04-03-2022 Telephone encounter Gypsy Mcmahon [facility] Start: 03-30-2022 End: 03-30-2022 Departed Referred MD Gypsy Mcmahon Work Phone: [facility] Work Phone: Start: 03-30-2022 End: 03-30-2022 ambulatory MD Gypsy Mcmahon Work Phone: [facility] Work Phone: Start: 03-30-2022 Nursing evaluation o f patient and report Gypsy Mcmahon [facility] Start: 03-20-2022 End: 03-21-[address] GYPSY MCMAHON Facility:H1 Start: 03-19-2022 End: 03-19-2022 ambulatory Hunter Brown Other [facility] Other Start: 03-19-2022 Telephone encounter Hunter Palomo [facility] Start: 03-11-2022 Registered Recurring MD Gypsy Mcmahon Work Phone: [facility] Work Phone: Start: 02-23-2022 End: 02-24-[address] GYPSY MCMAHON Facility:H1 Start: 02-19-2022 End: 02-19-2022 ambulatory Gypsy Mcmahon Other [facility] Other Start: 02-19-2022 Telephone encounter Gypsy Mcmahon [facility] Start: 02-17-2022 End: 02-18-[address] GYPSY MCMAHON Facility:H1 Start: 02-16-2022 End: 02-16-2022 ambulatory Gypsy Mcmahon Other [facility] Other Start: 02-16-2022 Office outpatient vi sit 15 minutes Gypsy Mcmahon [facility] Start: 02-16-2022 End: 02-16-2022 Departed Referred MD Gypsy Mcmahon Work Phone: [facility] Work Phone: Start: 02-11-2022 End: 02-11-2022 ambulatory Hunter Brown Other [facility] Other Start: 02-11-2022 Office outpatient vi sit 15 minutes Hunter Brown [facility] Start: 02-11-2022 Telephone encounter Hunter brady [facility] Start: 01-26-2022 End: 01-27-[address] GYPSY MCMAHON Facility:H1 Start: 01-15-2022 End: 01-16-[address] GYPSY MCMAHON Facility:H1 Start: 01-06-2022 End: 01-06-2022 ambulatory Hunter Brown Other [facility] Other Start: 01-06-2022 Telephone encounter Hunter brady [facility] Start: 01-05-2022 End: 01-06-2022 ambulatory CLAU NASCIMENTO [facility] [employer] Other Start: 01-05-2022 Office outpatient vi sit 25 minutes Hunter Brown [facility] Start: 12-27-2021 End: 12-27-[address] REY MONTGOMERY Facility:H1 Start: 12-18-2021 End: 12-19-2021 ambulatory CLAU NASCIMENTO Facility:H1 Start: 12-08-2021 End: 12-09-[address] GYPSY MCMAHON Facility:H1 Start: 11-18-2021 End: 11-18-2021 ambulatory Hunetr Brown Other [facility] Other Start: 11-18-2021 Telephone encounter Hunter Palomo ck [facility] Start: 11-17-2021 End: 11-18-[address] GYPSY MCMAHON Facility:H1 Start: 11-10-2021 End: 11-11-[address] GYPSY MCMAHON Facility:H1 Start: 11-02-2021 End: 11-04-2021 ambulatory SHAIKH Nasreen ARI Facility:H1 Start: 10-31-2021 End: 11-01-[address] GYPSY MCMAHON Facility:H1 Start: 10-27-2021 End: 10-28-2021 ambulatory CLAU NASCIMENTO Facility:H1 Start: 10-16-2021 End: 10-16-[address] REY MONTGOMERY Facility:H1 Start: 10-16-2021 End: 10-17-[address] GYPSY MCMAHON Facility:H1 Start: 08-18-2021 End: 08-18-2021 ambulatory Giana Villar Other [facility] Other Start: 08-18-2021 Telephone encounter Giana Villar [facility] Start: 08-12-2021 End: 08-12-[address] GYPSY MCMAHON Facility:H1 Start: 04-22-2021 End: 04-22-2021 ambulatory Giana Villar Other [facility] Other Start: 04-22-2021 Telephone encounter Giana Villar [facility] Start: 03-27-2021 End: 03-27-2021 ambulatory Giana Villar Other [facility] Other Start: 03-27-2021 Office outpatient vi sit 25 minutes Giana Villar [facility] Start: 01-27-2021 End: 01-27-2021 ambulatory Giana Villar Other [facility] Other Start: 01-27-2021 Office outpatient vi sit 25 minutes Giana Villar [facility] Start: 01-27-2021 Telephone encounter Giana Villar [facility] Procedures Date Procedure Procedure Detail Performing Clinician Start: 02-28-2024 Arthrocentesis aspir &/inj major jt/bursa w/o us Sunny Ingram PHYSICIAN RELATIONS MANAGER Work Phone: Start: 02-28-2024 Radiologic examinati on knee 1/2 views Sunny Ingram PHYSICIAN RELATIONS MANAGER Work Phone: Start: 01-07-2024 Basic metabolic pane l calcium total Konstantin Stout MD Work Phone: Start: 01-06-2024 Basic metabolic pane l calcium total Konstantinjaylon Stout MD Work Phone: Start: 01-05-2024 Basic [...] 01-04-2024 Potassium serum plasma/whole blood Aroldo Burns MUD TRUCKER-ROOMING HOUSE OPERATOR Work Phone: Start: 01-04-2024 End: 01-04-2024 Culture [...] bacterial qu anttative colony count urine Anu Angelica Tha PA Work Phone: Start: 01-03-2024 Potassium serum plas ma/whole blood Aroldo Burns MUD TRUCKER-ROOMING HOUSE OPERATOR Work Phone: Start: 01-03-2024 Gluc bld gluc [...] Author Start: 12-31-2024 Tobacco Screening Tobacco Screening [facility] Start: 12-23-2024 Tobacco Screening Tobacco Screening [facility] Start: 11-18-2024 Adult BMI Screening Adult BMI Screening [facility] Start: 11-17-2024 Depression Screening Depression Screening [facility] Start: 11-17-2024 Tobacco Screening Tobacco Screening [facility] Start: 11-15-2024 Adult BMI Screening Adult BMI Screening [facility] Start: 11-15-2024 Tobacco Screening Tobacco Screening [facility] Start: 10-26-2024 Adult BMI Screening Adult BMI Screening [facility] Start: 10-26-2024 Tobacco Screening Tobacco Screening [facility] Start: 08-31-2024 End: 08-31-2024 Patient encounter procedure 08/31/2024 9:20 AM EDT Office Visit [facility] [address] [place] [phone] Deuce Kirkland MD [address], [address] [address] [facility] V[facility] Surgery Start: 08-18-2024 End: 08-18-2024 Patient encounter procedure [facility] - V[facility] Start: 06-29-2024 End: 06-29-[address] [facility] Surgery Start: 06-16-2024 Adult BMI Screening Adult BMI Screening [facility] Start: 06-16-2024 Tobacco Screening Tobacco Screening [facility] Start: 04-08-2024 Urine culture [facility] Start: 03-30-2024 End: 03-30-2024 Patient encounter procedure 03/30/2024 1:30 PM EST Office Visit [facility] [address] [place] [phone] Sunny Ingram, PHYSICIAN RELATIONS MANAGER [address] [place] [address] [facility] Start: 02-28-2024 End: 02-28-2024 Patient encounter procedure 02/28/2024 2:45 PM EST Office Visit [facility] [address] [place] [phone] Sunny Ingram, PHYSICIAN RELATIONS MANAGER [address] [place] [address] Left knee pain, unspecified chronicity [facility] Comment on above: Left knee pain, unspecified chronicity Start: 02-24-2024 End: 02-23-2025 US.doppler Extremity arteries - bilateral for physiologic artery study Vas art doppler lwr bilat mult lev/PVR Vascular Ultrasound Routine 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) Critical limb ischemia of left lower extremity with rest pain (CMS-HCC) Expected: 02/24/2024, Expires: 02/23/2025 Se Work Phone: Comment on above: Expected: 02/24/2024, Expires: Start: 02-24-2024 End: 02-23-2025 US.doppler Lower extremity artery - bilateral Vas art duplex lwr graft scan bilat Vascular Ultrasound Routine 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 Vascular Surgery Start: 01-17-2024 End: 01-17-2024 Patient encounter procedure 01/17/2024 1:00 PM EST Office Visit [facility] [address] [facility] [place] [address] Sunny Ingram, PHYSICIAN RELATIONS MANAGER [address] [place] [address] [facility] Start: 01-01-2024 End: 01-01-2024 Admission to same day surgery center 01/01/2024 12:00 PM EST - 01/01/2024 6:00 PM EST Surgery [facility] - Special Procedures [address] [place] [address] Deuce Kirkland MD [address], [address] [place] [address] ENDARTERECTOMY FEMORAL (ILIOFEMORAL ENDARTERECTOMY) [facility] - Special Procedures Comment on above: ENDARTERECTOMY FEMORAL (ILIOFEMORAL ENDA RTERECTOMY) Start: 01-01-2024 End: 01-01-2024 ENDARTERECTOMY FEMORAL [facility] Start: 01-01-2024 End: 01-01-2024 Revascularization iliac artery angiop 1st vsl [facility] SPECIAL PROC Start: 01-01-2024 Subsequent hospital visit by physician 01/01/2024 12:00 PM EST Hospital Encounter [facility] Special Procedures [address] [place] [address] Deuce Kirkland MD [address], [facility] [address] [place] [address] [facility] Special Procedures Start: 12-31-2023 End: 12-31-2023 Patient encounter procedure 12/31/2023 8:30 AM EST Procedure visit [facility] On [address] [phone] [facility] On [facility] Start: 12-30-2023 End: 12-30-2023 Patient encounter procedure 12/30/2023 1:10 PM EST Office Visit [facility] [place] [address] Deuce Kirkland MD [address], [facility] [address] [place] [address] [facility] Start: 12-29-2023 End: 12-29-2023 Patient encounter procedure 12/29/2023 10:00 AM EST Appointment [facility] [address] [place] [address] Deuce Kirkland MD [address], [facility] [address] [place] [address] [facility] Vascular Start: 12-24-2023 End: 12-24-2023 ABLATION VENOUS RADIOFREQUENCY [facility] Start: 12-24-2023 End: 12-24-2023 Admission to same day surgery center 12/24/2023 2:00 PM EST - 12/24/2023 3:30 PM EST Surgery [facility] - Surgery [address] [place] [address] Deuce Kirkland MD [address], [facility] [address] [place] [address] ABLATION VENOUS RADIOFREQUENCY-GREATER SAPHENOUS VEIN [facility] Comment on above: ABLATION VENOUS RADIOFREQUENCY-GREATER S APHENOUS VEIN Start: 12-24-2023 End: 12-24-2023 SCLEROTHERAPY LOWER EXTREMITY [facility] Start: 12-24-2023 Subsequent hospital visit by physician 12/24/2023 2:00 PM EST Hospital Encounter [facility] - Surgery [address] [place] [address] Deuce Kirkland MD [address], [facility] [address] [place] [address] [facility] - Surgery Start: 12-23-2023 End: 12-23-2023 ambulatory 12/23/2023 3:00 PM EST Support Visit [facility] - Pre Admit [address] [place] [address] [facility] - Pre Admit Start: 12-22-2023 End: 12-22-2023 Patient encounter procedure 12/22/2023 3:45 PM EST Appointment [facility] - Vascular [address] [place] [address] Deuce Kirkland MD [address], [facility] [address] [place] [address] [facility] - Vascular Start: 12-15-2023 End: 12-14-2024 US.doppler Lower extremity vein - right Vas venous duplex lwr single right Vascular Ultrasound Routine Venous ulcer of ankle, right ([facility]) Expected: 12/15/2023, Expires: 12/14/2024 Se Work Phone: Comment on above: Expected: 12/15/2023, Expires: Start: 12-14-2023 End: 12-14-2023 Patient encounter procedure 12/14/2023 1:00 PM EST Office Visit [facility] [address] [place] [phone] Sunny Ingram, PHYSICIAN RELATIONS MANAGER [address] [place], [place] [phone] Primary osteoarthritis of left hip; History of left hip replacement [facility] Comment on above: Primary osteoarthritis of [...] rest pain (CMS-HCC) Expected: 12/09/2023, Expires: 12/08/2024 [facility] Work Phone: Comment on above: Expected: 12/09/2023, Expires: Start: 12-09-2023 End: 12-09-2023 Patient encounter procedure 12/09/2023 10:00 AM EDT Office Visit [facility] [address] [place] [phone] Deuce Kirkland MD [address], [facility] [address] [place] [address] [facility] Start: 11-18-2023 End: 11-18-2023 Admission to same day surgery center 11/18/2023 3:30 PM EDT - 11/18/2023 6:00 PM EDT Surgery [facility] - Special Procedures [address] [place] [address] Deuce Kirkland MD [address], [address] [place] [address] ANGIOPLASTY ILIAC-ILIAC SHOCKWAVE INTRAVASCULAR LITHOTRIPSY & STENTING [05748 (CPT )] [facility] Special Procedures Comment on above: ANGIOPLASTY ILIAC-ILIAC SHOCKWAVE INTRAV ASCULAR LITHOTRIPSY & STENTING [18969 (CPT )] Start: 11-18-2023 End: 11-18-2023 Revascularization iliac artery angiop 1st vsl ANGIOPLASTY ILIAC 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 ([facility]) 11/18/2023 3:30 PM EDT [facility] SPECIAL PROC Start: 11-18-2023 Subsequent hospital visit by physician 11/18/2023 3:30 PM EDT Hospital Encounter [facility] Special Procedures [address] [place] [phone] Deuce Kirkland MD [address], [address] [place] [address] (Work) [facility] Special Procedures Start: 11-18-2023 End: 11-18-2023 Patient encounter procedure 11/18/2023 9:30 AM EDT Office Visit [facility] [address] [place] [phone] Deuce Kirkland MD [address], [address] [place] [address] [facility] Start: 11-05-2023 End: 11-05-2023 Admission to same day surgery center 11/05/2023 1:30 PM EDT - 11/05/2023 3:30 PM EDT Surgery [facility] Surgery [address] [place] [address]. [place] [phone] Deuce Kirkland MD [address] [place] [address] ANGIOPLASTY ILIAC Iliac shockwave intravascular lithotripsy and stenting [61922 (CPT )] [facility] - [facility] Comment on above: ANGIOPLASTY ILIAC Iliac shockwave intrav ascular lithotripsy and stenting [24804 (CPT )] Start: 11-05-2023 End: 11-05-2023 Revascularization iliac artery angiop 1st vsl [facility] Start: 11-05-2023 Subsequent hospital visit by physician 11/05/2023 1:30 PM EDT Hospital Encounter [facility] Surgery [address] [facility] [address] 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 Start: 06-17-2023 End: 06-16-2024 US.doppler Extremity arteries - bilateral for physiologic artery study Vas art doppler lwr bilat mult lev/PVR Vascular Ultrasound Routine PAD (peripheral artery disease) ([facility]) Expected: 06/17/2023, Expires: 06/16/2024 [employer] Work Phone: Comment on above: Expected: 06/17/2023, Expires: 5 Start: 03-30-2022 Bacteria identified in Urine by Culture [facility] Start: 11-08-2018 Pneumococcal Vaccine: 65+ Years (2 of 2 - PCV) Pneumococcal Vaccine: 65+ Years (2 of 2 - PCV) [facility] Start: 08-21-2002 Fall Risk Screening Fall Risk Screening [employer] Start: 1986 Administration of varicella zoster vaccine Zoster (Shingles) Vaccine (1 of 2) [employer] Start: 09-29-1955 DTaP,Tdap and Td Vaccines (1 - Tdap) DTaP,Tdap and Td Vaccines (1 - Tdap) [employer] Start: 1948 Depression Screening Depression Screening [employer] Start: 1936 Medicare Annual Wellness Visit Medicare Annual Wellness Visit [employer] Bacteria identified in Blood by [employer] culture [employer] Work Phone: Bacteria identified in Stool by Culture [facility] Bacteria identified in Urine by Culture [facility] Basic metabolic 2000 panel - Serum or Plasma Basic Metabolic Panel Lab Routine Lab max of 3 days, Daily, for lab use only until discontinued starting 01/02/2024, 6 completed [employer] Comment on above: Lab max of 3 days, Daily, for lab use on ly until discontinued starting 01/02/2024, 6 completed End: 01-04-2024 Bedside Glucose *Place/Obtain serum glucose if >500(>600 [facility]) per glucometer. Bedside Glucose *Place/Obtain serum glucose if >500(>600 [facility]) per glucometer. Point of Care Testing Routine Once for 1 Occurrences starting 01/04/2024 until 01/04/2024 [employer] Comment on above: Once for 1 Occurrences starting 01/04/20 until 01/04/2024 CBC W Auto Different ial panel - Blood CBC auto differential Lab Routine Lab max of 3 days, Daily, for lab use only until discontinued starting 01/02/2024, 6 completed [employer] Comment on above: Lab max of 3 days, Daily, for lab use on ly until discontinued starting 01/02/2024, 6 completed Comprehensive metabo lic 2000 panel - Serum or Plasma [facility] Elastase.pancreatic [Mass/mass] in Stool [facility] End: 01-04-2024 Electrocardiogram, 12-lead Electrocardiogram, 12-lead ECG STAT Once for 1 Occurrences starting 01/04/2024 until 01/04/2024 [employer] Work Phone: Comment on above: Once for 1 Occurrences starting 01/04/20 until 01/04/2024 Oxygen Therapy - Sandra ntain SpO2: 90%; *STOCKROOM INVENTORY CLERK Guidelines for O2: Yes; Document: \[email or web address]\[email or web address]\ EPIC_Reference\Orders\Resp iratory Care Guidelines\CPG Oxygen 2022.pdf Oxygen Therapy - Maintain SpO2: 90%; *STOCKROOM INVENTORY CLERK Guidelines for O2: Yes; Document: \[email or web address]\ep ic\EPIC_Reference\Order s\Respiratory Care Guidelines\CPG Oxygen 2022.pdf Respiratory Care Routine As Needed until discontinued starting 01/01/2024 [facility] Work Phone: Comment on above: As Needed until discontinued starting Patient referral [facility] Work Phone: Urine culture [facility] Immunizations Immunization Date Immunization Notes Care Provider Fa cili 11-23-2023 Covid-19, Mrna, Lnp- s, Pf,jose-sucrose,30 Mcg/0.3ml Deuce Kirkland MD Work Phone: [facility] 11-23-2023 influenza, high dose seasonal, preservative-free Deuce Kirkland MD Work Phone: [facility] 02-16-2023 Influenza Vaccine, Quadrivalent, Adjuvanted Deuce Kirkland MD Work Phone: [facility] 02-16-2023 influenza virus vaccine, unspecified formulation Deuce Kirkland MD Work Phone: [facility] 02-16-2022 Shingrix 50 MCG/0.5M L; Translations: [Shingrix 50 MCG/0.5ML] Hunter Brown Other [employer] Other 01-15-2022 influenza virus vaccine, unspecified formulation MALATHI VIEIRA [facility] 01-15-2022 Influenza, High-dose , Quadrivalent Deuce Kirkland MD Work Phone: [facility] 01-15-2022 SARS-CoV-2 (COVID-19 ) [id number] MALATHI VIEIRA [facility] 01-23-2021 SARS-CoV-2 (COVID-19 ) mRNA BNT-162b2 vax MALATHI DEB [facility] 01-06-2021 Influenza Vaccine, Quadrivalent, Adjuvanted Deuce Kirkland MD Work Phone: [facility] 01-06-2021 influenza virus vaccine, unspecified formulation MALATHI DEB [facility] 03-27-2020 SARS-CoV-2 (COVID-19 ) mRNA BNT-162b2 vax MALATHI DEB [facility] 03-04-2020 SARS-CoV-2 (COVID-19 ) mRNA BNT-162b2 vax MALATHI DEB [facility] 12-06-2019 influenza virus vaccine, unspecified formulation MALATHI DEB [facility] 12-06-2019 influenza, injectabl e, quadrivalent, preservative free Deuce Kirkland MD Work Phone: [facility] 12-14-2018 influenza virus vaccine, unspecified formulation MALATHI DEB [facility] 12-14-2018 Seasonal trivalent influenza vaccine, adjuvanted, preservative free Deuce Kirkland MD Work Phone: [facility] 02-02-2018 influenza virus vaccine, unspecified formulation MALATHI DEB [facility] 02-02-2018 Seasonal trivalent influenza vaccine, adjuvanted, preservative free Deuce Kirkland MD Work Phone: [facility] 11-08-2017 pneumococcal polysaccharide vaccine, 23 valent MALATHI DEB [facility] 11-02-2017 influenza virus vaccine, unspecified formulation MALATHI DEB [facility] 11-02-2017 influenza, injectabl e, quadrivalent, preservative free Sunny Ingram PHYSICIAN RELATIONS MANAGER Work Phone: [facility] 12-09-2016 influenza virus vaccine, unspecified formulation MALATHI DEB [facility] 12-09-2016 influenza, injectabl e, quadrivalent, preservative free Sunny Ingram PHYSICIAN RELATIONS MANAGER Work Phone: [facility] 12-02-2016 influenza virus vaccine, unspecified formulation MALATHI DEB [facility] 12-02-2016 influenza, high dose seasonal, preservative-free Deuce Kirkland MD Work Phone: [facility] 12-17-2015 influenza virus vaccine, unspecified formulation MALATHI DEB [facility] 12-17-2015 influenza, high dose seasonal, preservative-free Deuce Kirkland MD Work Phone: [facility] 10-10-2015 influenza virus vaccine, unspecified formulation MALATHI DEB [facility] 10-10-2015 influenza, injectabl e, quadrivalent, preservative free Sunny Ingram PHYSICIAN RELATIONS MANAGER Work Phone: [facility] 11-19-2014 influenza virus vaccine, unspecified formulation MALATHI DEB [facility] 11-19-2014 influenza, high dose seasonal, preservative-free Deuce Kirkland MD Work Phone: [employer] 11-09-2014 pneumococcal polysaccharide vaccine, 23 valent MALATHI VIEIRA [facility] NEGATED: Highlighted row has not occurred!01-26-2023 influenza virus vaccine, unspecified formulation MALATHI VIEIRA [facility] Payers Date Payer Category Payer [facility] er [id number] 315 2019 [facility] Managed Care - Other [facility] [id number] 2019 Unknown [facility] HMO/PPO/TRUST [id number] 2019-Present [phone] [address] [place] [address] [id number] 4.2.7.3.492566.315 2001 Medicare 1.2.840.389228. 1.13.69 3.2.7.9.264479.046246. 315 1959 [facility]92 [id number] 2.16.840.1.651605.19 1959 Medicare [id number] 2.16.840.1.388932.19 1936 Unknown [id number] 2.16.840.1.055999.3.57 9.2.593 1936 Unknown [id number] 2.16.840.1.448570.3.57 9.2.593 1936 Unknown [id number] 2.16.840.1.131329.3.57 9.2.593 1936 Unknown [id number] 2.16.840.1.491603.3.57 9.2.593 1936 Unknown [id number] 2.16.840.1.424104.3.57 9.2.593 1936 Unknown [id number] 2.16.840.1.549865.3.57 9.2.593 1936 Unknown [id number] 2.16.840.1.440961.3.57 9.2.593 1936 Unknown [id number] 2.16.840.1.544653.3.57 9.2.593 1936 Unknown [id number] 2.16.840.1.280715.3.57 9.2.593 1936 Unknown [id number] 2.16.840.1.779363.3.57 9.2.593 1936 Unknown [id number] 2.16.840.1.669659.3.57 9.2.593 1936 Unknown [id number] 2.16.840.1.525101.3.57 9.2.593 1936 Unknown [id number] 2.16.840.1.878312.3.57 9.2.593 1936 Unknown [id number] 2.16.840.1.272337.3.57 9.2.593 1936 Unknown [id number] 2.16.840.1.727560.3.57 9.2.593 1936 Unknown [id number] 2.16.840.1.330210.3.57 9.2.593 1936 Unknown [id number] 2.16.840.1.575933.3.57 9.2.593 1936 Unknown [id number] 2.16.840.1.065791.3.57 9.2.593 1936 Unknown [id number] 2.840.1.948234.3.57 9.2.593 1936 Unknown [id number] 2.840.1.080829.3.57 9.2.593 1936 Unknown [id number] 2.840.1.654626.3.57 9.2.593 1936 Unknown [id number] 2.16840.1.235950.3.57 9.2.727 1936 Unknown [id number] 2.16840.1.546210.3.57 9.2.727 1936 Unknown [id number] 2.16840.1.745996.3.57 9.2.727 1936 Unknown [id number] 2.16.840.1.453315.3.57 9.2.727 1936 Unknown [id number] 2.16.840.1.628874.3.57 9.2.1286 1936 Unknown [id number] 2.16.840.1.684062.3.57 9.2.1286 7 Unknown [id number] 2.840.1.186692.3.57 9.2.128 1936 Unknown [id number] 2.840.1.774975.3.57 9.2.128 1936 Unknown [id number] 2.840.1.792103.3.57 9.2.128 1936 Unknown [id number] 2.840.1.535029.3.57 9.2.128 1936 Unknown [id number] 2.0.1.940488.3.57 9.2.1285 1936 Unknown [id number] 2.840.1.277099.3.57 9.2.1285 1936 Unknown [id number] 2.0.1.706946.3.57 9.2.1285 1936 Unknown [id number] 2.0.1.143630.3.57 9.2.128 1936 Unknown [id number] 2.0.1.627614.3.57 9.2.1285 1936 Unknown [id number] 2.0.1.951461.3.57 9.2.1285 1936 Unknown [id number] 2.0.1.005152.3.57 9.2.1285 1936 Unknown [id number] 2.840.1.857000.3.57 9.2.128 1936 Unknown [id number] 2.0.1.003086.3.57 9.2.1285 1936 Unknown [id number] 2.840.1.400359.3.57 9.2.128 1936 Unknown [id number] 2.840.1.326638.3.57 9.2.128 1936 Unknown [id number] 2.16.840.1.946538.3.57 9.2.1286 1936 Unknown [id number] 2.16.840.1.801183.3.57 9.2.1286 1936 Unknown [id number] 2.16.840.1.454379.3.57 9.2.1286 1936 Unknown [id number] 2.16.840.1.680689.3.57 9.2.1286 1936 Unknown [id number] 2.16.840.1.873699.3.57 9.2.1286 1936 Unknown [id number] 2.16.840.1.876214.3.57 9.2.1286 1936 Unknown [id number] 2.16.840.1.504725.3.57 9.2.1286 1936 Unknown [id number] 2.16.840.1.444737.3.57 9.2.1259 1936 Unknown [id number] 2.16.840.1.989950.3.57 9.2.1259 1936 Unknown [id number] 2.16.840.1.162912.3.57 9.2.1259 1936 Unknown [id number] 2.16.840.1.177959.3.57 9.2.1259 Self-pay Self Pay [id number] [facility] [id number] Social History Date Type Detail Facility Unknown if ever smoked [facility] Other Start: 03-21-2020 End: 12-15-2022 Sex Assigned At [facility] Start: 1935 Sex Assigned At Female [facility] Start: 05-19-2022 End: 04-13-2024 Tobacco smoking status Ex-smoker (finding) [facility] Start: 09-22-2022 Tobacco smoking status Never [facility] Start: 11-21-2021 End: 05-05-2023 Tobacco smoking status NHIS Never smoked tobacco (finding) [facility] Start: 07-18-2022 End: 12-31-2023 Tobacco use and exposure Smokeless tobacco non-user [facility] Start: 11-05-2023 End: 01-03-2024 Alcoholic beverage intake Current drinker of alcohol (finding) [facility] Start: 03-21-2020 End: 12-15-2022 History of Social function [facility] Start: 07-18-2022 Alcohol Comment occasionally a glass of wine [facility] Start: 1935 Sex assigned at Not on file [facility] End: 12-30-1993 History of tobacco use Current smoker [facility] End: 12-30-1993 History of tobacco use Cigarette Smoker [facility] Has the [employer], [employer], or [employer] threatened to shut off services in your home in past 12Mo No [facility] How often to you hav e a drink containing alcohol? Monthly or less [facility] How many standard drinks containing alcohol do you have on a typical day? 1 or 2 [facility] How often do you hav e 6 or more drinks on 1 occasion? Never [facility] Start: 10-27-2023 Tobacco Comment QUIT IN 1989 [facility] Start: 12-31-2023 Alcohol Comment monthly [facility] Start: 09-13-2014 End: 04-13-2024 [facility] Start: 06-17-2023 End: 10-14-2023 Alcoholic beverage intake Defer [facility] Start: 10-27-2023 Alcohol Comment OCC [facility] Medical Equipment Procedure Code Equipment Code Equipment Origin al Text Equipment Identifier Dates Graft Vsc 80cm 8 mm [place] Thnwl Propaten Hep Ptfe Rem Rng - [id number] - [id number] Start: 01-01-2024 Comment on above: Description: RIGHT F EMORAL - POPLITEAL ARTERY Incv/Patch Cv 8x .8cm N-Pyrg Tpr End Photofix Decellularized Bvn Rpl [id number] Use [id number] - [id number] Start: 01-01-2024 Comment on above: Description: RIGHT F EMORAL ARTERY Stent 7fr 135cm Vbx Ba Ppm Expandable Cath Hep Vbhn Eprsth 8 Rpl [id number] - [id number] - [id number] Start: 01-01-2024 Comment on above: Description: RIGHT I LIAC ARTERY Goals Date Patient Goal Desired Activity /State Personal health goal Comment on above: Formatting of this n ote might be different from the original. Evaluation of progress towards goal: Functional Status Date Assessment Result Facility 01-26-2023 Functional Status N/A [facility] 09-22-2022 Functional Status N/A [facility] 06-09-2022 Functional Status N/A [facility] 05-19-2022 Functional Status N/A [facility] Mental Status Date Assessment Result Facility [facility] Clinical Notes 01-27-2021 to 03-23-2024 Telephone [...] 6 months. Kiana can be reached at [phone] Thank you. Forwarding message to provider. Spoke directly with Dr Kirkland, patient can stop Xeralto since his iliac stent & bypass was in December. Patient to continue asp & Plavix I called Dr Mcmahon's office and spoke to Tammy to give her the update. [facility] encounter Note Kiana with office is calling to see if the patient needs to continue to take Xarelto since the patient is moving around well and at a lower risk for a DVT or if she needs to continue as a routine pos top med for 6 months. Kiana can be reached at [phone] Thank you. [facility] 03-23-2024 Telephone encounter Note Forwarding message to provider. [facility] 03-23-2024 Telephone encounter Note Spoke directly with Dr Kirkland, patient can stop Xeralto since his iliac stent & bypass was in December. Patient to continue asp & Plavix I called Dr Mcmahon's office and spoke to Tammy to give her the update. [facility]24 Note [facility] Note Chief Complaint: Follow up [...] 3 miscellaneous medical supply (Blood Pressure Cuff) mis, [...] 3 times da (more content not included)... [facility] 02-28-2024 History of Present illness Narrative Associated [...] TAKING TYL, GABAPENTIN, TRAMADOL. 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 Primary osteoarthritis of left [...] develop for requiring urgent evaluation. Sunny Ingram MUD TRUCKER-ROOMING HOUSE OPERATOR documented in this encounter 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 Risk factors modification.Continue wound care. [facility] 02-24-2024 Miscellaneous Notes Associated Problem(s): Critical [...] it is not documented in this encounter [facility] 02-24-2024 Evaluation + Plan note Associated Problem(s): Critical limb ischemia of left lower extremity with rest pain (CMS-HCC) We will address the left lower extremity if she continues to have pain after the wound heals on the right side. For now she feels like the pain is tolerable she will see me sooner if it is not [facility] 02-24-2024 History of Present illness Narrative [...] Critical limb ischemia of right lower extremity ([facility]) Dental disease UPPER AND LOWER DENTURE DIAZ (dyspnea on exertion) Fractures 2018 LEFT HIP GERD (gastroesophageal reflux disease) HL (hearing loss) Hyperlipidemia Hypertension Microscopic colitis PAD (peripheral artery disease) ([facility]) Peptic ulceration BLEEDING ULCER ADMITTED 2018 X13 DAYS TATYANA Rash Skin cancer REMOVED Sleep apnea No CPAP Thin skin Urinary tract infection CHRONIC, SEES ID EVERY 3 MONTHS Visual impairment Wound of ankle RIGHT SINCE 07/2023 Past Surgical History: Past Surgical History: Procedure Laterality Date ABDOMINAL SURGERY ANGIOGRAM EXTREMITY LOWER Right 01/01/2024 Performed by Deuce Kirkland MD at [facility] SPECIAL PROC ANGIOPLASTY ILIAC STENT PLACEMENT Right 01/01/2024 Performed by Deuce Kirkland MD at [facility] SPECIAL PROC ANGIOPLASTY ILIAC-ILIAC SHOCKWAVE INTRAVASCULAR LITHOTRIPSY Right 11/18/2023 Performed by Deuce Kirkland MD at [facility] SPECIAL PROC ARTHROSCOPY SHOULDER W/ OPEN ROTATOR CUFF REPAIR Left 2011 BOVINE PATCH ANGIOPLASTY CUTDOWN FEMORAL Right 01/01/2024 Performed by Deuce Kirkland MD at [facility] SPECIAL PROC BOVINE PATCH ANGIOPLASTY ILEOFEMORAL Right 01/01/2024 Performed by Deuce Kirkland MD at [facility] SPECIAL PROC BYPASS ARTERY FEMORAL BELOW KNEE POPLITEAL W/ VEIN PATCH/ HIGH GSV LIGATION AND HARVEST Right 01/01/2024 Performed by Deuce Kirkland MD at [facility] SPECIAL PROC CARDIAC SURGERY CATARACT EXTRACTION CHOLECYSTECTOMY N/A 2008 CORONARY ARTERY BYPASS GRAFT 1998 x 5 ENDARTERECTOMY FEMORAL AND ILIOFEMORAL ENDARTERECTOMY Right 01/01/2024 Performed by Deuce Kirkland MD at [facility] SPECIAL PROC EYE SURGERY HERNIA REPAIR N/A 03/2012 HIP FRACTURE SURGERY Left 05/2017 HYSTERECTOMY N/A JOINT REPLACEMENT lower ext angiogram Bilateral 01/07/2022 Performed by Taryn Belle MD at [facility] CARDIAC CATH LABS SCLEROTHERAPY LOWER EXTREMITY Right 12/24/2023 Performed by Deuce Kirkland MD at [facility] TOTAL HIP ARTHROPLASTY Left 2019 VASCULAR [...] Deuce Kirkland MD, QUENTIN, RPVI, FSVS, FACS [facility] [facility] This note was created with the assistance of a speech recognition program. While intending to generate a timely document that accurately reflects the content of the visit, no guarantee can be provided that every grammatical or spelling mistake has been or will be identified or corrected. Thank you for your understanding. [facility] Evaluation note Diagnosis Onset Date Resolution Microscopic colitis acute 2024 1:24pm [facility] Work Phone: 1(710) 912-966901-13-2025 Evaluation note* Diagnosis Onset Date Resolution Status Admit Date Microscopic colitis acute 2024 1:24pm Arterial vascular disease acute February 13th, 2025 1:46pm Hyperlipidemia acute March 112024 1:46pm Hypertension acute March 1:46pm [facility] Work Phone: 1(283) 440-888201-13-2025 Evaluation note* Diagnosis Onset Date Resolution Status Admit Date Microscopic colitis acute Janua ry 2024 1:24pm Arterial vascular disease acute March 23, 2024 1:46pm Hyperlipidemia acute March 112024 1:46pm Hypertension acute March 1:46pm Recurrent UTI acute April 13, 2024 2:36pm [facility] Work Phone: 1(955) 811-602712-12-2024 History of Present illness Narrative* Deuce Kirkland [...] and duplex ultrasound. Also I advised on roman catholic in the strict follow up with the [facility] for management of right foot and leg wounds.. [id number] Nurse Note* Eleanor Soto RN - 01/07/2024 5:26 PM EST Report called to Luli Benítez. Name and number provided for any further questions. [facility] [id number] Nurse Note* Eleanor Soto RN - 01/07/2024 5:26 PM EST Report called to Luli Benítez. Name and number provided for any further questions. [facility] Hospital course Narrative* Aroldo Burns APRN-LIS - 01/07/2024 1:30 PM EST HOSPITAL DISCHARGE SUMMARY Patient ID: Delicia Hsu Acct: [id number] Patient's PCP: GYPSY MCMAHON MD Admit Date: 01/01/2024 Discharge Date: Length of Stay: 6 Days Admitting Physician: Deuce Kirkland MD Discharge Physician: Deuce Kirkland MD Discharge Diagnoses: Patient Active Problem List Diagnosis Date Noted Encounter for therapeutic drug monitoring 12/15/2023 Venous ulcer of ankle, right ([facility]) 12/09/2023 Chronic ulcer of lower extremity ([facility]) 11/18/2023 Non-pressure chronic ulcer of right lower leg, limited to breakdown of skin ([facility]) 11/18/2023 Chronic ulcer of right heel ([facility]) 11/18/2023 Gastroesophageal reflux disease 11/18/2023 Immunocompromised state ([facility]) 11/18/2023 Ingrown nail 11/18/2023 Non-pressure chronic ulcer of calf with fat layer exposed ([facility]) 11/18/2023 Peripheral vascular disease ([facility]) 11/18/2023 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 ([facility]) 11/18/2023 Critical limb ischemia of both lower extremities with rest pain ([facility]) 11/18/2023 Anemia 11/09/2023 C. 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 ([facility]) 10/14/2023 Venous ulcer of right leg ([facility]) 10/14/2023 Venous insufficiency (chronic) (peripheral) 11/11/2022 Arteriosclerosis of coronary artery 11/02/2022 Arthritis of right knee 11/02/2022 Internal derangement of right knee 11/02/2022 Complete tear of right rotator cuff 11/02/2022 Essential hypertension 11/02/2022 Hip bursitis, left 11/02/2022 Primary osteoarthritis of left hip 11/02/2022 Other abnormalities of gait and mobility 11/02/2022 Osteoarthritis of hip 06/30/2022 PAD (peripheral artery disease) ([facility]) 01/06/2022 Closed fracture of neck of femur ([facility]) 06/07/2017 Past Medical History: Diagnosis Date Anesthesia complication 2018 HAD HALLUCINATIONS FOR A FEW DAYS AFTER HIP SURGERY Arrhythmia Arthritis C. difficile diarrhea 12/2022 HOSPITALIZED, 01/2023 Cataract Cholecystitis Chronic kidney disease Colitis Coronary artery disease Critical limb ischemia of right lower extremity ([facility]) Dental disease UPPER AND LOWER DENTURE DIAZ (dyspnea on exertion) Fractures 2018 LEFT HIP GERD (gastroesophageal reflux disease) HL (hearing loss) Hyperlipidemia Hypertension Microscopic colitis PAD (peripheral artery disease) ([facility]) Peptic ulceration BLEEDING ULCER ADMITTED 2017 X13 [...] Xarelto 2.5 mg. Patient was accepted at [facility]. Transported set up today for 5:00 p.m. [...] Unremarkable left total hip arthroplasty. 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 Discharge Instructions: Take all medications as prescribed, keep all follow-up appointments Follow Up: cheduled Outpatient Follow Up: Future Appointments Date Time Provider Department Center 01/20/2024 10:10 AM MD VANESSA Frost [facility] 06/29/2024 10:20 AM MD VANESSA Frost [facility] Follow-up Information RUSS YARBROUGH MD Follow up. Specialty: Urology Contact information: [address] [facility] [address] GYPSY MCMAHON MD . Specialty: Family Medicine Contact information: [facility] [place] [phone] Scheduled Appointments Jan 20, 2024 10:10 AM (Arrive by 9:55 AM) POST OPERATION VISIT with MD Madeline Frost [facility] ([facility]) [address] [place] [phone] At the time of your visit please be aware of the following COVID-19 information: If you develop a new cough, fever, or shortness of breath, please call before your appointment. Please plan to arrive at least 15 minutes earlier than your appointment time as screening and registration may take longer than anticipated. Please consider the [employer] eCheck-in to pre-register and make your co-payment before your visit. This will reduce your registration time. Please be aware that [facility] may require you [...] 10:05 AM) ESTABLISHED PATIENT with MD Madeline Frostt [facility] [address] [facility] [address] At the time of your visit please be aware of the following COVID-19 information: If you develop a new cough, fever, or shortness of breath, please call before your appointment. Please plan to arrive at least 15 minutes earlier than your appointment time as screening and registration may take longer than anticipated. Please consider the [employer] eCheck-in to pre-register and make your co-payment before your visit. This will reduce your registration time. Please be aware that [facility] may require you [...] Your Medications These medications were sent to [facility] - [place], [place] - [address] [facility] [id number] acetic acid 0.25 % irrigation CEPHalexin 500 [...] XAVIER Brown 01/07/24 1341 [facility] Plan of care note * Plan of Care - Eleanor Soto RN - 01/07/2024 1:00 PM EST Problem: Pain Goal: Patient goal is pain score less than 4, able to rest, and participant in treatment plan as appropriate Description: INTERVENTIONS: 1. Encourage patient or legal corporate sales representative to report early pain and ask [...] per policy 9. Teach patient or legal corporate sales representative interventions for comforting Outcome: Progressing Note: [...] at the bedside 7. Instruct patient/ patient corporate sales representative about use of safety devices 8. Include patient/ patient corporate sales representative in decisions related to safety Outcome: [...] hygiene technique 7. Identify and instruct patient/patient corporate sales representative in use of appropriate isolation precautionsfor identified infection/symptoms 8. Provide and discuss with patient/patient corporate sales representative on educational MDRO sheet 9. Encourage and monitor nutritional status daily and consult associate dean of students if indicated 10. Implement neutropenic guidelines as needed 11. Review exposure to history of communicable disease and recent travel history on admission 12. Encourage annual influenza vaccine 13. Encourage pneumonia vaccine Outcome: Progressing Note: Evaluation of progress towards goal: Patient afebrile. Hand hygiene encouraged. WBC WNL. OralKeflex. Will continue to monitor. Problem: Knowledge Deficit Goal: Patient/patient corporate sales representative demonstrates understanding of disease process, treatment [...] supplement as ordered 13. Collaborate with clinical associate dean of students 14. Include patient/ patient's corporate sales representative in decisions related to nutrition Outcome: [...] Moderate - High Risk Fall Score Description: Raymond Fall Score of =/> 25 or indicated by [facility] Assessment Goal: Patient should be free from fall Description: Interventions: 1. [place] to environment 2. Hourly rounds addressing the [...] non-skid footwear 11. Teach patient and patient corporate sales representative to maintain environment for safety and [...] (cane, walker) within reach 19. Request patient corporate sales representative bring adaptive equipment/mobility aids from home or obtain and provide as needed 20. Consult pharmacy regarding effects of med's affecting mobility, cognition, and alternatives 21. Obtain physician order for PT if risk factors associated with mobility are present 22. Obtain physician order for OT as appropriate 23. Utilize diversional activities 24. Educate patient and patient corporate sales representative how to maintain a safe environment during visitationtimes (notify nurse prior to leaving bedside) 25. Consider appropriateness of medical or non-medical officer 26. Set up voiding schedule as appropriate (every 2 hours) Outcome: Progressing Note: Evaluation of progress towards goal: Patient free of fall. Non-slip socks on. Bed locked and lowest position. 2/4 side rails raised. Call light within reach. Patient alert and oriented. Will continue to monitor. [id number] Miscellaneous Notes* Plan of Care - Eleanor Soto RN - 01/07/2024 1:00 PM EST Problem: Pain Goal: Patient goal is pain score less than 4, able to rest, and participant in treatment plan as appropriate Description: INTERVENTIONS: 1. Encourage patient or legal corporate sales representative to report early pain and ask [...] per policy 9. Teach patient or legal corporate sales representative interventions for comforting Outcome: Progressing Note: [...] at the bedside 7. Instruct patient/ patient corporate sales representative about use of safety devices 8. Include patient/ patient corporate sales representative in decisions related to safety Outcome: [...] hygiene technique 7. Identify and instruct patient/patient corporate sales representative in use of appropriate isolation precautionsfor identified infection/symptoms 8. Provide and discuss with patient/patient corporate sales representative on educational MDRO sheet 9. Encourage and monitor nutritional status daily and consult associate dean of students if indicated 10. Implement neutropenic guidelines as needed 11. Review exposure to history of communicable disease and recent travel history on admission 12. Encourage annual influenza vaccine 13. Encourage pneumonia vaccine Outcome: Progressing Note: Evaluation of progress towards goal: Patient afebrile. Hand hygiene encouraged. WBC WNL. OralKeflex. Will continue to monitor. Problem: Knowledge Deficit Goal: Patient/patient corporate sales representative demonstrates understanding of disease process, treatment [...] supplement as ordered 13. Collaborate with clinical associate dean of students 14. Include patient/ patient's corporate sales representative in decisions related to nutrition Outcome: [...] be free from fall Description: Interventions: 1. [place] to environment 2. Hourly rounds addressing the [...] non-skid footwear 11. Teach patient and patient corporate sales representative to maintain environment for safety and [...] (cane, walker) within reach 19. Request patient corporate sales representative bring adaptive equipment/mobility aids from home or obtain and provide as needed 20. Consult pharmacy regarding effects of med's affecting mobility, cognition, and alternatives 21. Obtain physician order for PT if risk factors associated with mobility are present 22. Obtain physician order for OT as appropriate 23. Utilize diversional activities 24. Educate patient and patient corporate sales representative how to maintain a safe environment during visitationtimes (notify nurse prior to leaving bedside) 25. Consider appropriateness of medical or non-medical officer 26. Set up voiding schedule as appropriate (every 2 hours) Outcome: Progressing Note: Evaluation of progress towards goal: Patient free of fall. Non-slip socks on. Bed locked and lowest position. 2/4 side rails raised. Call light within reach. Patient alert and oriented. Will continue to monitor. * Discharge Planning Note - Ángela Bailey RN - 01/07/2024 12:59 PM EST DISCHARGE PLANNING NOTE Damage Assessor met with patient and daughter Joanna at bedside to let them know that [facility] isable to accept today. Joanna stated they [...] PM Community Referral Form/medication reconciliation attached to [facility] [place]. HENS completed. Discharge packet complete and in chart slot. - Ángela Bailey RN 01/07/24 2:01 PM * Discharge Planning Note - Luli Moeller - 01/07/2024 12:26 PM EST DISCHARGE PLANNING NOTE BLS transport to [facility] via ptn confirme for 01/06 at 1700. * PT/OT/SUPERINTENDENT TRACK - Ang Winn PTA - 01/07/2024 11:55 AM EST Physical Therapy Treatment Discharge Recommendations PT Recommendations: [facility] SNF/ECF Comments: Recommending SNF as pt [...] stedy, bed/chair alarm, O2 via NC, beckman Telemetry/Library Services Coordinator: Yes Oxygen Used: 2LO2 via NC. Other: [...] Patient will perform bed mobility with Modified [place] Dates: Start: 01/02/24 Expected End: 01/08/24 Description: HOB elevated and use of rail as needed Disciplines: PT Outcomes Date/Time User Outcome 01/07/24 1148 Ang Winn PTA Progressing 01/04/24 1142 Fanny Roberts, PT Not Progressing Goal Note filed on 01/07/24 1148 by Ang Winn PTA Evaluation of progress towards goal: Problem: Gait Dates: Start: 01/02/24 Disciplines: PT Goal: Patient will perform gait with Modified [place] Dates: Start: 01/02/24 Expected End: 01/08/24 Description: [...] Goal: Patient will perform transfers with Modified [place] Dates: Start: 01/02/24 Expected End: 01/08/24 Description: Goal Description: Using appropriate technique and hand placement for safety at home Disciplines: PT Outcomes Date/Time User Outcome 01/07/24 1148 Ang Winn PTA Progressing 01/04/24 1142 Fanny Roberts, PT Not Progressing Goal Note filed on 01/07/24 1148 by Ang Winn PTA Evaluation of progress towards goal: Physical Therapy Care Plan (Resolved) There are no resolved problems. 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 Encourage patient or legal corporate sales representative to report early pain and ask [...] per policy 9. Teach patient or legal corporate sales representative interventions for comforting Outcome: Progressing Note: [...] at the bedside 7. Instruct patient/ patient corporate sales representative about use of safety devices 8. Include patient/ patient corporate sales representative in decisions related to safety Outcome: [...] hygiene technique 7. Identify and instruct patient/patient corporate sales representative in use of appropriate isolation precautionsfor identified infection/symptoms 8. Provide and discuss with patient/patient corporate sales representative on educational MDRO sheet 9. Encourage and monitor nutritional status daily and consult associate dean of students if indicated 10. Implement neutropenic guidelines as needed 11. Review exposure to history of communicable disease and recent travel history on admission 12. Encourage annual influenza vaccine 13. Encourage pneumonia vaccine Outcome: Progressing Note: Evaluation of progress towards goal: Vitals sign wnl. No sign of infection noted. 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 Complete learning assessment and assess knowledge base 2. Provide teaching at level of understanding 3. Provide teaching via preferred learning method(s) Outcome: Progressing Note: Evaluation of progress towards goal: Patient/patient corporate sales representative demonstrates understanding of disease process, treatment [...] Score of =/> 25 or indicated by [facility] Assessment Goal: Patient should be free from fall Description: Interventions: 1. [place] to environment 2. Hourly rounds addressing the [...] non-skid footwear 11. Teach patient and patient corporate sales representative to maintain environment for safety and [...] (cane, walker) within reach 19. Request patient corporate sales representative bring adaptive equipment/mobility aids from home or obtain and provide as needed 20. Consult pharmacy regarding effects of med's affecting mobility, cognition, and alternatives 21. Obtain physician order for PT if risk factors associated with mobility are present 22. Obtain physician order for OT as appropriate 23. Utilize diversional activities 24. Educate patient and patient corporate sales representative how to maintain a safe environment during visitationtimes (notify nurse prior to leaving bedside) 25. Consider appropriateness of medical or non-medical officer 26. Set up voiding schedule as appropriate [...] Description: INTERVENTIONS: 1. Encourage patient or legal corporate sales representative to report early pain and ask [...] per policy 9. Teach patient or legal corporate sales representative interventions for comforting Outcome: Not Progressing [...] at the bedside 7. Instruct patient/ patient corporate sales representative about use of safety devices 8. Include patient/ patient corporate sales representative in decisions related to safety Outcome: Progressing Note: Evaluation of progress towards goal: Family member at bedside. Patient educated to use the call light to call for assistance. Hourly rounding completed to meet patient's needs. Problem: Knowledge Deficit Goal: Patient/patient corporate sales representative demonstrates understanding of disease process, treatment [...] progress towards goal: Patient anticipates d/c to [facility] for rehab therapy. * Plan of Care - Laquita Argueta RN - 01/05/2024 11:47 PM EST Problem: Pain Goal: Patient goal is pain score less than 4, able to rest, and participant in treatment plan as appropriate Description: INTERVENTIONS: 1. Encourage patient or legal corporate sales representative to report early pain and ask [...] per policy 9. Teach patient or legal corporate sales representative interventions for comforting Outcome: Progressing Note: [...] at the bedside 7. Instruct patient/ patient corporate sales representative about use of safety devices 8. Include patient/ patient corporate sales representative in decisions related to safety Outcome: [...] hygiene technique 7. Identify and instruct patient/patient corporate sales representative in use of appropriate isolation precautionsfor identified infection/symptoms 8. Provide and discuss with patient/patient corporate sales representative on educational MDRO sheet 9. Encourage and monitor nutritional status daily and consult associate dean of students if indicated 10. Implement neutropenic guidelines as needed 11. Review exposure to history of communicable disease and recent travel history on admission 12. Encourage annual influenza vaccine 13. Encourage pneumonia vaccine Outcome: Progressing Note: Evaluation of progress towards goal: IV antibiotics continues for infection. Tolerating meds.Vitals within normal limits. 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 Complete learning assessment and assess knowledge base 2. Provide teaching at level of understanding 3. Provide teaching via preferred learning method(s) Outcome: Progressing Note: Evaluation of progress towards goal: Patient/patient corporate sales representative demonstrates understanding of disease process, treatment [...] Score of =/> 25 or indicated by [facility] Assessment Goal: Patient should be free from fall Description: Interventions: 1. [place] to environment 2. Hourly rounds addressing the [...] non-skid footwear 11. Teach patient and patient corporate sales representative to maintain environment for safety and [...] (cane, walker) within reach 19. Request patient corporate sales representative bring adaptive equipment/mobility aids from home or obtain and provide as needed 20. Consult pharmacy regarding effects of med's affecting mobility, cognition, and alternatives 21. Obtain physician order for PT if risk factors associated with mobility are present 22. Obtain physician order for OT as appropriate 23. Utilize diversional activities 24. Educate patient and patient corporate sales representative how to maintain a safe environment during visitationtimes (notify nurse prior to leaving bedside) 25. Consider appropriateness of medical or non-medical officer 26. Set up voiding schedule as appropriate (every 2 hours) Outcome: Progressing Note: Evaluation of progress towards goal: Area free from hazards, patient call light within reach,will continue to monitor patient for risk of falls. * Discharge Planning Note - Juan Branch - 01/05/2024 10:11 AM EST DISCHARGE PLANNING NOTE Clinical Updates Sent to [facility] [place] (P# ; F# ) * Discharge Planning Note - IVAN Coles - 01/05/2024 9:56 AM EST DISCHARGE PLANNING NOTE Task to [facility] to send clinical updates to [facility] [place]. Sw to follow. - IVAN Coles 01/05/24 9:56 AM * Plan of Care - Monie Brown RN - 01/05/2024 7:38 AM EST Problem: Pain Goal: Patient goal is pain score less than 4, able to rest, and participant in treatment plan as appropriate Description: INTERVENTIONS: 1. Encourage patient or legal corporate sales representative to report early pain and ask [...] per policy 9. Teach patient or legal corporate sales representative interventions for comforting Outcome: Progressing Note: [...] at the bedside 7. Instruct patient/ patient corporate sales representative about use of safety devices 8. Include patient/ patient corporate sales representative in decisions related to safety Outcome: [...] hygiene technique 7. Identify and instruct patient/patient corporate sales representative in use of appropriate isolation precautionsfor identified infection/symptoms 8. Provide and discuss with patient/patient corporate sales representative on educational MDRO sheet 9. Encourage and monitor nutritional status daily and consult associate dean of students if indicated 10. Implement neutropenic guidelines as needed 11. Review exposure to history of communicable disease and recent travel history on admission 12. Encourage annual influenza vaccine 13. Encourage pneumonia vaccine Outcome: Progressing Note: Evaluation of progress towards goal: Antibiotics started Problem: Knowledge Deficit Goal: Patient/patient corporate sales representative demonstrates understanding of disease process, treatment [...] Description: INTERVENTIONS: 1. Encourage patient or legal corporate sales representative to report early pain and ask [...] per policy 9. Teach patient or legal corporate sales representative interventions for comforting Outcome: Progressing Note: [...] at the bedside 7. Instruct patient/ patient corporate sales representative about use of safety devices 8. Include patient/ patient corporate sales representative in decisions related to safety Outcome: [...] hygiene technique 7. Identify and instruct patient/patient corporate sales representative in use of appropriate isolation precautionsfor identified infection/symptoms 8. Provide and discuss with patient/patient corporate sales representative on educational MDRO sheet 9. Encourage and monitor nutritional status daily and consult associate dean of students if indicated 10. Implement neutropenic guidelines as needed 11. Review exposure to history of communicable disease and recent travel history on admission 12. Encourage annual influenza vaccine 13. Encourage pneumonia vaccine Outcome: Progressing Note: Evaluation of progress towards goal: IV antibiotics continues for infection. Tolerating meds.Vitals within normal limits. 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 Complete learning assessment and assess knowledge base 2. Provide teaching at level of understanding 3. Provide teaching via preferred learning method(s) Outcome: Progressing Note: Evaluation of progress towards goal: Patient/patient corporate sales representative demonstrates understanding of disease process, treatment [...] Score of =/> 25 or indicated by [facility] Assessment Goal: Patient should be free from fall Description: Interventions: 1. [place] to environment 2. Hourly rounds addressing the [...] non-skid footwear 11. Teach patient and patient corporate sales representative to maintain environment for safety and [...] (cane, walker) within reach 19. Request patient corporate sales representative bring adaptive equipment/mobility aids from home or obtain and provide as needed 20. Consult pharmacy regarding effects of med's affecting mobility, cognition, and alternatives 21. Obtain physician order for PT if risk factors associated with mobility are present 22. Obtain physician order for OT as appropriate 23. Utilize diversional activities 24. Educate patient and patient corporate sales representative how to maintain a safe environment during visitationtimes (notify nurse prior to leaving bedside) 25. Consider appropriateness of medical or non-medical officer 26. Set up voiding schedule as appropriate [...] Description: INTERVENTIONS: 1. Encourage patient or legal corporate sales representative to report early pain and ask [...] per policy 9. Teach patient or legal corporate sales representative interventions for comforting Outcome: Progressing Note: [...] at the bedside 7. Instruct patient/ patient corporate sales representative about use of safety devices 8. Include patient/ patient corporate sales representative in decisions related to safety Outcome: Progressing Note: Evaluation of progress towards goal: Assessed patient's risk for falls and implemented fall prevention plan of care per policy. Provided and maintained a safe environment. Pt remains free from falls and injury during this stay. * PT/OT/SUPERINTENDENT TRACK - Fanny Roberts, PT - 01/04/2024 11:42 AM EST Physical Therapy Treatment Discharge Recommendations PT Recommendations: [facility] SNF/ECF Comments: Continue to recommend SNF. Pt now requiring 2 person assist for bed mobility and transfers with Ana Heidi. Increased confusion noted. 6 Clicks: Basic Mobility [...] belt, Ana Stedy, O2, bed/chair alarm, [place] Telemetry/Library Services Coordinator: Yes Oxygen Used: 2L via NC Other: [...] seated EOB for safety. Limited ability to [place] Ana Stedy.) Activity Tolerance Endurance: Tolerates <30 [...] Patient will perform bed mobility with Modified [place] Dates: Start: 01/02/24 Expected End: 01/08/24 Description: HOB elevated and use of rail as needed Disciplines: PT Outcomes Date/Time User Outcome 01/04/24 1142 Fanny Roberts PT Not Progressing Problem: Gait Dates: Start: 01/02/24 Disciplines: PT Goal: Patient will perform gait with Modified [place] Dates: Start: 01/02/24 Expected End: 01/08/24 Description: [...] Tye2 Fanny Roberts PT Not Progressing Problem: Standing Balance Dates: Start: 01/02/24 Disciplines: PT Goal: Improve balance to good Dates: Start: 01/02/24 Expected End: 01/08/24 Description: Static with RW Dynamic with RW To promote safety with transfers and gait. Disciplines: PT Outcomes Date/Time User Outcome 01/04/24 1142 Fanny Roberts PT Not Progressing Problem: Strength Dates: Start: 01/02/24 Disciplines: PT Goal: Improve strength Dates: Start: 01/02/24 Expected End: 01/08/24 Description: Pt will perform x15 reps, AROM, of all prescribed LE exercises to improve strength andfacilitate their ability to transfer and ambulate. Disciplines: PT Outcomes Date/Time User Outcome 01/04/24 Tomasa Roberts PT Not Progressing Problem: Transfers Dates: Start: 01/02/24 Disciplines: PT Goal: Patient will perform transfers with Modified [place] Dates: Start: 01/02/24 Expected End: 01/08/24 Description: Goal Description: Using appropriate technique and hand placement for safety at home Disciplines: PT Outcomes Date/Time User Outcome 01/04/24 1142 Fanny Roberts PT Not Progressing Physical Therapy Care Plan (Resolved) There are no resolved problems. 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 ([facility]) * PT/OT/SUPERINTENDENT TRACK - Lila Nguyen OTR/L - 01/04/2024 11:38 AM EST Occupational Therapy Evaluation Discharge Recommendations OT Recommendations : [facility] Facility SNF/ECF Comments: Recommending SNF as pt [...] little Scoring Daily Activity Raw Score: 13 [facility] G Code Modifier: CL Therapy Plan Need [...] Critical limb ischemia of right lower extremity ([facility]) Dental disease UPPER AND LOWER DENTURE DIAZ (dyspnea on exertion) Fractures 2018 LEFT HIP GERD (gastroesophageal reflux disease) HL (hearing loss) Hyperlipidemia Hypertension Microscopic colitis PAD (peripheral artery disease) ([facility]) Peptic ulceration BLEEDING ULCER ADMITTED 2018 X13 DAYS TATYANA Rash Skin cancer REMOVED Sleep apnea No CPAP Thin skin Urinary tract infection CHRONIC, SEES ID EVERY 3 MONTHS Visual impairment Wound of ankle RIGHT SINCE 07/2023 Past Surgical History: Procedure Laterality Date ABDOMINAL SURGERY ANGIOGRAM EXTREMITY LOWER Right 01/01/2024 Performed by Deuce Kirkland MD at [facility] SPECIAL PROC ANGIOPLASTY ILIAC STENT PLACEMENT Right 01/01/2024 Performed by Deuce Kirkland MD at [facility] SPECIAL PROC ANGIOPLASTY ILIAC-ILIAC SHOCKWAVE INTRAVASCULAR LITHOTRIPSY Right 11/18/2023 Performed by Deuce Kirkland MD at [facility] SPECIAL PROC ARTHROSCOPY SHOULDER W/ OPEN ROTATOR CUFF REPAIR Left 2011 BOVINE PATCH ANGIOPLASTY CUTDOWN FEMORAL Right 01/01/2024 Performed by Deuce Kirkland MD at [facility] SPECIAL PROC BOVINE PATCH ANGIOPLASTY ILEOFEMORAL Right 01/01/2024 Performed by Deuce Kirkland MD at [facility] SPECIAL PROC BYPASS ARTERY FEMORAL BELOW KNEE POPLITEAL W/ VEIN PATCH/ HIGH GSV LIGATION AND HARVEST Right 01/01/2024 Performed by Deuce Kirkland MD at [facility] SPECIAL PROC CARDIAC SURGERY CATARACT EXTRACTION CHOLECYSTECTOMY N/A 2008 CORONARY ARTERY BYPASS GRAFT 1999 x 5 ENDARTERECTOMY FEMORAL AND ILIOFEMORAL ENDARTERECTOMY Right 01/01/2024 Performed by Deuce Kirkland MD at [facility] SPECIAL PROC EYE SURGERY HERNIA REPAIR N/A 03/2012 HIP FRACTURE SURGERY Left 05/2017 HYSTERECTOMY N/A JOINT REPLACEMENT lower ext angiogram Bilateral 01/07/2022 Performed by Taryn Belle MD at [facility] CARDIAC CATH LABS SCLEROTHERAPY LOWER EXTREMITY Right 12/24/2023 Performed by Deuce Kirkland MD at [facility]IP ARTHROPLASTY Left 2019 VASCULAR [...] stedy, bed/chair alarm, O2 via NC, beckman Telemetry/Library Services Coordinator: Yes Oxygen Used: 2L via [place] Other: [...] : 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 Prior Function Lives With: Son (lives with [...] Reduced Other: pt confused and lethargic this . requires extensive time for processing. RN aware. [...] Gait Other: not safe to attempt this Balance Sitting Balance: Static: Fair Sitting Balance: [...] Goal: Patient will perform grooming with Modified [place] Dates: Start: 01/04/24 Expected End: 02/01/24 Description: [...] ischemia of right lower extremity with gangrene ([facility]) * Plan of Care - Kodak Clark RN - 01/04/2024 12:13 AM EST Problem: Pain Goal: Patient goal is pain score less than 4, able to rest, and participant in treatment plan as appropriate Description: INTERVENTIONS: 1. Encourage patient or legal corporate sales representative to report early pain and ask [...] per policy 9. Teach patient or legal corporate sales representative interventions for comforting Outcome: Progressing Note: [...] at the bedside 7. Instruct patient/ patient corporate sales representative about use of safety devices 8. Include patient/ patient corporate sales representative in decisions related to safety Outcome: [...] hygiene technique 7. Identify and instruct patient/patient corporate sales representative in use of appropriate isolation precautionsfor identified infection/symptoms 8. Provide and discuss with patient/patient corporate sales representative on educational MDRO sheet 9. Encourage and monitor nutritional status daily and consult associate dean of students if indicated 10. Implement neutropenic guidelines as needed 11. Review exposure to history of communicable disease and recent travel history on admission 12. Encourage annual influenza vaccine 13. Encourage pneumonia vaccine Outcome: Progressing Note: Evaluation of progress towards goal: Pt free from s/s of infection. Will continue to monitor. Problem: Knowledge Deficit Goal: Patient/patient corporate sales representative demonstrates understanding of disease process, treatment [...] is in the independent living portion of [facility] and lives with her son. She states that patient is in agreement with placement and they would like a referrals to [facility], tasked referral to be made and they [...] Yes Patient Goals: Patient/Caregiver Goals Patient/Caregiver Goals: Jail Care Skilled [place] Care: Skilled Care (Short Term) Goals: Goals Daughter stated: Discharge to SNF and then back to independent living with resumption of home care,. (pt-stated) Evaluation of progress towards goal: * Discharge Planning Note - Sabrina Garduno - 01/03/2024 1:41 PM EST DISCHARGE PLANNING NOTE Referral to [facility] (P# ; F# ) * Discharge Planning Note - IVAN Coles - 01/03/2024 12:06 PM EST DISCHARGE PLANNING NOTE Sw attempted to meet with pt to complete assessment and discuss post acute care needs. Staff currently providing care to pt at bedside. Will follow-up again later. - IVAN Coles 01/03/24 12:09 PM * PT/OT/SUPERINTENDENT TRACK - CHRISTOS Yao - 01/03/2024 8:44 AM [...] Description: INTERVENTIONS: 1. Encourage patient or legal corporate sales representative to report early pain and ask [...] per policy 9. Teach patient or legal corporate sales representative interventions for comforting Outcome: Progressing Note: [...] at the bedside 7. Instruct patient/ patient corporate sales representative about use of safety devices 8. Include patient/ patient corporate sales representative in decisions related to safety Outcome: [...] hygiene technique 7. Identify and instruct patient/patient corporate sales representative in use of appropriate isolation precautionsfor identified infection/symptoms 8. Provide and discuss with patient/patient corporate sales representative on educational MDRO sheet 9. Encourage and monitor nutritional status daily and consult associate dean of students if indicated 10. Implement neutropenic guidelines as [...] Description: INTERVENTIONS: 1. Encourage patient or legal corporate sales representative to report early pain and ask [...] per policy 9. Teach patient or legal corporate sales representative interventions for comforting Outcome: Progressing Note: [...] at the bedside 7. Instruct patient/ patient corporate sales representative about use of safety devices 8. Include patient/ patient corporate sales representative in decisions related to safety Outcome: [...] hygiene technique 7. Identify and instruct patient/patient corporate sales representative in use of appropriate isolation precautionsfor identified infection/symptoms 8. Provide and discuss with patient/patient corporate sales representative on educational MDRO sheet 9. Encourage and monitor nutritional status daily and consult associate dean of students if indicated 10. Implement neutropenic guidelines as needed 11. Review exposure to history of communicable disease and recent travel history on admission 12. Encourage annual influenza vaccine 13. Encourage pneumonia vaccine Outcome: Progressing Note: Evaluation of progress towards goal: Pt free from s/s of infection. Will continue to monitor. 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 Complete learning assessment and assess knowledge base 2. Provide teaching at level of understanding 3. Provide teaching via preferred learning method(s) Outcome: Progressing Note: Plan of care reviewed with patient. Questions answered. Will continue to assess. * PT/OT/SUPERINTENDENT TRACK - Leif Raymond, PT - 01/02/2024 4:56 PM EST Physical Therapy Evaluation Discharge Recommendations PT Recommendations: Jail Facility SNF/ECF Comments: At this time pt [...] 6 Clicks: Basic Mobility Raw Score: 13 [facility] G Code Modifier: CK Therapy Plan Need [...] Critical limb ischemia of right lower extremity ([facility]) Dental disease UPPER AND LOWER DENTURE DIAZ (dyspnea on exertion) Fractures 2018 LEFT HIP GERD (gastroesophageal reflux disease) HL (hearing loss) Hyperlipidemia Hypertension Microscopic colitis PAD (peripheral artery disease) ([facility]) Peptic ulceration BLEEDING ULCER ADMITTED 2018 X13 DAYS TATYANA Rash Skin cancer REMOVED Sleep apnea No CPAP Thin skin Urinary tract infection CHRONIC, SEES ID EVERY 3 MONTHS Visual impairment Wound of ankle RIGHT SINCE 07/2023 Past Surgical History: Procedure Laterality Date ABDOMINAL SURGERY ANGIOPLASTY ILIAC-ILIAC SHOCKWAVE INTRAVASCULAR LITHOTRIPSY Right 11/18/2023 Performed by Deuce Kirkland MD at [facility] SPECIAL PROC ARTHROSCOPY SHOULDER W/ OPEN ROTATOR CUFF REPAIR Left 2011 CARDIAC SURGERY CATARACT EXTRACTION CHOLECYSTECTOMY N/A 2008 CORONARY ARTERY BYPASS GRAFT 1999 x 5 EYE SURGERY HERNIA REPAIR N/A 03/2012 HIP FRACTURE SURGERY Left 05/2017 HYSTERECTOMY N/A JOINT REPLACEMENT lower ext angiogram Bilateral 01/07/2022 Performed by Taryn Belle MD at [facility] CARDIAC CATH LABS SCLEROTHERAPY LOWER EXTREMITY Right 12/24/2023 Performed by Deuce Kirkland MD at [facility] TOTAL HIP ARTHROPLASTY Left 2019 VASCULAR [...] pole Weight Bearing Status: no formal orders Telemetry/Library Services Coordinator: Yes Oxygen Used: room air Other: high [...] Patient will perform bed mobility with Modified [place] Dates: Start: 01/02/24 Expected End: 01/08/24 Description: HOB elevated and use of rail as needed Disciplines: PT Problem: Gait Dates: Start: 01/02/24 Disciplines: PT Goal: Patient will perform gait with Modified [place] Dates: Start: 01/02/24 Expected End: 01/08/24 Description: [...] Goal: Patient will perform transfers with Modified [place] Dates: Start: 01/02/24 Expected End: 01/08/24 Description: Goal Description: Using appropriate technique and hand placement for safety at home Disciplines: PT Physical Therapy Care Plan (Resolved) There are no resolved problems. 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 Encourage patient or legal corporate sales representative to report early pain and ask [...] per policy 9. Teach patient or legal corporate sales representative interventions for comforting Outcome: Progressing Note: [...] at the bedside 7. Instruct patient/ patient corporate sales representative about use of safety devices 8. Include patient/ patient corporate sales representative in decisions related to safety Outcome: [...] hygiene technique 7. Identify and instruct patient/patient corporate sales representative in use of appropriate isolation precautionsfor identified infection/symptoms 8. Provide and discuss with patient/patient corporate sales representative on educational MDRO sheet 9. Encourage and monitor nutritional status daily and consult associate dean of students if indicated 10. Implement neutropenic guidelines as needed 11. Review exposure to history of communicable disease and recent travel history on admission 12. Encourage annual influenza vaccine 13. Encourage pneumonia vaccine Outcome: Progressing Note: Evaluation of progress towards goal: Monitor labs and vital signs. Patient afebrile at this time. Problem: Knowledge Deficit Goal: Patient/patient corporate sales representative demonstrates understanding of disease process, treatment [...] EST Patient Name: Delicia Hsu Medical Record: [id number] Date of Operation: 01/02/2024 Preoperative Diagnosis: Right [...] loops. I then exposed the popliteal artery [id number]. The angiogram shows that there is constitution [id number]. To my surprise the heavy calcification in [...] sent to Dr Kirkland [facility]* Discharge Planning Note - Ángela Bailey RN - 01/07/2024 12:59 PM EST DISCHARGE PLANNING NOTE Damage Assessor met with patient and daughter Joanna at bedside to let them know that [facility] isable to accept today. Joanna stated they [...] Referral Form/medication reconciliation attached to [facility] for [facility]. HENS completed. Discharge packet complete and in chart slot. - Ángela Bailey RN 01/07/24 2:01 PM [facility] Progress note* Discharge Planning Note - Luli Moeller - 01/07/2024 12:26 PM EST DISCHARGE PLANNING NOTE BLS transport to [facility] via ptn confirme for 01/06 at 1700. [facility] Progress note* PT/OT/SUPERINTENDENT TRACK - Ang Winn PTA - 01/07/2024 11:55 AM EST Physical Therapy Treatment Discharge Recommendations PT Recommendations: Jail Facility SNF/ECF Comments: Recommending SNF as pt [...] stedy, bed/chair alarm, O2 via NC, beckman Telemetry/Library Services Coordinator: Yes Oxygen Used: 2LO2 via NC. Other: [...] Patient will perform bed mobility with Modified [place] Dates: Start: 01/02/24 Expected End: 01/08/24 Description: HOB elevated and use of rail as needed Disciplines: PT Outcomes Date/Time User Outcome 01/07/24 1148 Ang Winn PTA Progressing 01/04/24 1142 Fanny Roberts, PT Not Progressing Goal Note filed on 01/07/24 1148 by Ang Winn PTA Evaluation of progress towards goal: Problem: Gait Dates: Start: 01/02/24 Disciplines: PT Goal: Patient will perform gait with Modified [place] Dates: Start: 01/02/24 Expected End: 01/08/24 Description: With__RW__,__100__feet Goal Description: to facilitate household ambulation Disciplines: PT Outcomes Date/Time User Outcome 01/07/24 1148 Ang Winn PTA Progressing 01/04/24 1142 Fanny Roberts, PT Not Progressing Goal Note filed on [...] Goal: Patient will perform transfers with Modified [place] Dates: Start: 01/02/24 Expected End: 01/08/24 Description: [...] ischemia of right lower extremity with gangrene ([facility]) Cosigned by Christina Muro PT at 01/07/2024 3:30 PM EST Associated attestation - Christina Muro PT - 01/07/2024 3:30 PM EST I have reviewed and agree with this note and education documentation for this visit. [id number] History of Present illness Narrative* Hilda Smith MD - 01/07/2024 10:01 AM EST Images from the original note were not included. Delicia Hsu [id number] 1935 CONSULTING SERVICE: INFECTIOUS DISEASES REASON FOR [...] History of GI bleed Fracture left hip 2018 Gastroesophageal reflux disease Sensorineural hearing loss History [...] Units 01/07/24 0331 01/06/24 0420 01/05/24 1307 WBC X10E9/L 9.2 9.0 [...] Procedure Component Value Units Date/Time Blood Culture [[id number]] Collected: 01/04/24 1218 Specimen: Blood Updated: 01/06/24 1308 Culture NO GROWTH 2 DAYS Blood Culture [[id number]] Collected: 01/04/24 1217 Specimen: Blood Updated: 01/06/24 1308 Culture NO GROWTH 2 DAYS Urine culture [[id number]] (Abnormal) (Susceptibility) Collected: 01/03/24 1405 Specimen: Urine [...] she follows and Infectious Disease doctor at [facility] in [facility]. SUBJECTIVE: Patient reports improvement in symptoms. No nausea vomiting. No new events reported by nursing staff. PHYSICAL EXAMINATION: Seen With NS. GENERAL: Well built, well developed. No distress. Nontoxic. EYES: [place] conjunctivae. HEENT: No thrush. Neck supple. No [...] Critical limb ischemia of right lower extremity ([facility]) Dental disease UPPER AND LOWER DENTURE DIAZ (dyspnea on exertion) Fractures 2018 LEFT HIP GERD (gastroesophageal reflux disease) HL (hearing loss) Hyperlipidemia Hypertension Microscopic colitis PAD (peripheral artery disease) ([facility]) Peptic ulceration BLEEDING ULCER ADMITTED 2018 X13 DAYS T[place]NA Rash Skin cancer REMOVED Sleep apnea No CPAP Thin skin Urinary tract infection CHRONIC, SEES ID EVERY 3 MONTHS Visual impairment Wound of ankle RIGHT SINCE 07/2023 PAST SURGICAL HISTORY: Past Surgical History: Procedure Laterality Date ABDOMINAL SURGERY ANGIOGRAM EXTREMITY LOWER Right 01/01/2024 Performed by Deuce Kirkland MD at [facility] SPECIAL PROC ANGIOPLASTY ILIAC STENT PLACEMENT Right 01/01/2024 Performed by Deuce Kirkland MD at [facility] SPECIAL PROC ANGIOPLASTY ILIAC-ILIAC SHOCKWAVE INTRAVASCULAR LITHOTRIPSY Right 11/18/2023 Performed by Deuce Kirkland MD at [facility] SPECIAL PROC ARTHROSCOPY SHOULDER W/ OPEN ROTATOR CUFF REPAIR Left 2011 BOVINE PATCH ANGIOPLASTY CUTDOWN FEMORAL Right 01/01/2024 Performed by Deuce Kirkland MD at [facility] SPECIAL PROC BOVINE PATCH ANGIOPLASTY ILEOFEMORAL Right 01/01/2024 Performed by Deuce Kirkland MD at [facility] SPECIAL PROC BYPASS ARTERY FEMORAL BELOW KNEE POPLITEAL W/ VEIN PATCH/ HIGH GSV LIGATION AND HARVEST Right 01/01/2024 Performed by Deuce Kirkland MD at [facility] SPECIAL PROC CARDIAC SURGERY CATARACT EXTRACTION CHOLECYSTECTOMY N/A 2008 CORONARY ARTERY BYPASS GRAFT 1998 x 5 ENDARTERECTOMY FEMORAL AND ILIOFEMORAL ENDARTERECTOMY Right 01/01/2024 Performed by Deuce Kirkland MD at [facility] SPECIAL PROC EYE SURGERY HERNIA REPAIR N/A 03/2012 HIP FRACTURE SURGERY Left 05/2017 HYSTERECTOMY N/A JOINT REPLACEMENT lower ext angiogram Bilateral 01/07/2022 Performed by Taryn Belle MD at [facility] CARDIAC CATH LABS SCLEROTHERAPY LOWER EXTREMITY Right 12/24/2023 Performed by Deuce Kirkland MD at [facility] TOTAL HIP ARTHROPLASTY 2019 VASCULAR SURGERY Angiogram ALLERGIES: Allergies Allergen [...] Hilda Smith MD. Answering service: Perfect serve: [phone] * Hilda Smith MD - 01/06/2024 10:40 AM EST Images from the original note were not included. Delicia Hsu [id number] 1935 CONSULTING SERVICE: INFECTIOUS DISEASES REASON FOR [...] Procedure Component Value Units Date/Time Blood Culture [[id number]] Collected: 01/04/241217 Specimen: Blood Updated: 01/05/24 130 Culture NO GROWTH 1 DAY Blood Culture [[id number]] Collected: 01/04/24 121 Specimen: Blood Updated: 01/05/24 1308 Culture NO GROWTH 1 DAY Urine culture [[id number]] (Abnormal) (Susceptibility) Collected: 01/03/24 1405 Specimen: Urine [...] she follows and Infectious Disease doctor at [facility] in [facility]. SUBJECTIVE: Patient reports improvement in symptoms. No nausea vomiting. No new events reported by nursing staff. PHYSICAL EXAMINATION: Seen With NS. GENERAL: Well built, well developed. No distress. Nontoxic. EYES: [place] conjunctivae. HEENT: No thrush. Neck supple. No [...] Critical limb ischemia of right lower extremity ([facility]) Dental disease UPPER AND LOWER DENTURE DIAZ (dyspnea on exertion) Fractures 2018 LEFT HIP GERD (gastroesophageal reflux disease) HL (hearing loss) Hyperlipidemia Hypertension Microscopic colitis PAD (peripheral artery disease) ([facility]) Peptic ulceration BLEEDING ULCER ADMITTED 2018 X13 DAYS [place] Rash Skin cancer REMOVED Sleep apnea No CPAP Thin skin Urinary tract infection CHRONIC, SEES ID EVERY 3 MONTHS Visual impairment Wound of ankle RIGHT SINCE 07/2023 PAST SURGICAL HISTORY: Past Surgical History: Procedure Laterality Date ABDOMINAL SURGERY ANGIOGRAM EXTREMITY LOWER Right 01/01/2024 Performed by Deuce Kirkland MD at [facility] SPECIAL PROC ANGIOPLASTY ILIAC STENT PLACEMENT Right 01/01/2024 Performed by Deuce Kirkland MD at [facility] SPECIAL PROC ANGIOPLASTY ILIAC-ILIAC SHOCKWAVE INTRAVASCULAR LITHOTRIPSY Right 11/18/2023 Performed by Deuce Kirkland MD at [facility] SPECIAL PROC ARTHROSCOPY SHOULDER W/ OPEN ROTATOR CUFF REPAIR Left 2011 BOVINE PATCH ANGIOPLASTY CUTDOWN FEMORAL Right 01/01/2024 Performed by Deuce Kirkland MD at [facility] SPECIAL PROC BOVINE PATCH ANGIOPLASTY ILEOFEMORAL Right 01/01/2024 Performed by Deuce Kirkland MD at [facility] SPECIAL PROC BYPASS ARTERY FEMORAL BELOW KNEE POPLITEAL W/ VEIN PATCH/ HIGH GSV LIGATION AND HARVEST Right 01/01/2024 Performed by Deuce Kirkland MD at [facility] SPECIAL PROC CARDIAC SURGERY CATARACT EXTRACTION CHOLECYSTECTOMY N/A 2008 CORONARY ARTERY BYPASS GRAFT 1999 x 5 ENDARTERECTOMY FEMORAL AND ILIOFEMORAL ENDARTERECTOMY Right 01/01/2024 Performed by Deuce Kirkland MD at [facility] SPECIAL PROC EYE SURGERY HERNIA REPAIR N/A 03/2012 HIP FRACTURE SURGERY Left 05/2017 HYSTERECTOMY N/A JOINT REPLACEMENT lower ext angiogram Bilateral 01/07/2022 Performed by Taryn Belle MD at [facility] CARDIAC CATH LABS SCLEROTHERAPY LOWER EXTREMITY Right 12/24/2023 Performed by Deuce Kirkland MD at [facility] TOTAL HIP ARTHROPLASTY Left 2019 VASCULAR SURGERY [...] Hilda Smith MD. Answering service: Perfect serve: [phone] * Gracy Lim MD - 01/05/2024 1:00 [...] 01/03/24 0721 01/03/24 0459 01/02/24 0200 01/01/24 2045 12/31/23 0937 POTASSIUM mmol/L -- -- -- 4.4 -- -- -- 5.4* -- 5.0 -- 5.1* 4.7 4.3 4.2 CO2 mmol/L -- -- -- -- -- -- -- 23 -- -- -- 23 21* 22 22 [...] C difficile with previous antibiotic treatment, t marcely will follow along for that. Her right lower extremity is gradually healing with slight improvement in its appearance each day. Her pain is much better than it was a few days ago. * Hilda Smith MD - 01/05/2024 10:30 AM EST Images from the original note were not included. Delicia Hsu [id number] 1935 CONSULTING SERVICE: INFECTIOUS DISEASES REASON FOR [...] Procedure Component Value Units Date/Time Blood Culture [[id number]] Collected: 01/04/24 1218 Specimen: Blood Updated: 01/05/24107 Culture NO GROWTH <24 HRS Blood Culture [[id number]] Collected: 01/04/24 1217 Specimen: Blood Updated: 01/05/24107 Culture NO GROWTH <24 HRS Urine culture [[id number]] (Abnormal) (Susceptibility) Collected: 01/03/24 1405 Specimen: Urine [...] of coronary artery bypass grafting x5 in 1999 History of eye surgery History of hernia [...] she follows and Infectious Disease doctor at [facility] in [facility]. SUBJECTIVE: Patient reports improvement in symptoms. No nausea vomiting. No new events reported by nursing staff. PHYSICAL EXAMINATION: Seen With NS. GENERAL: Well built, well developed. No distress. Nontoxic. EYES: [place] conjunctivae. HEENT: No thrush. Neck supple. No [...] Critical limb ischemia of right lower extremity ([facility]) Dental disease UPPER AND LOWER DENTURE DIAZ (dyspnea on exertion) Fractures 2018 LEFT HIP GERD (gastroesophageal reflux disease) HL (hearing loss) Hyperlipidemia Hypertension Microscopic colitis PAD (peripheral artery disease) ([facility]) Peptic ulceration BLEEDING ULCER ADMITTED 2018 X13 DAYS [place] Rash Skin cancer REMOVED Sleep apnea No CPAP Thin skin Urinary tract infection CHRONIC, SEES ID EVERY 3 MONTHS Visual impairment Wound of ankle RIGHT SINCE 07/2023 PAST SURGICAL HISTORY: Past Surgical History: Procedure Laterality Date ABDOMINAL SURGERY ANGIOGRAM EXTREMITY LOWER Right 01/01/2024 Performed by Deuce Kirkland MD at [facility] SPECIAL PROC ANGIOPLASTY ILIAC STENT PLACEMENT Right 01/01/2024 Performed by Deuce Kirkland MD at [facility] SPECIAL PROC ANGIOPLASTY ILIAC-ILIAC SHOCKWAVE INTRAVASCULAR LITHOTRIPSY Right 11/18/2023 Performed by Deuce Kirkland MD at [facility] SPECIAL PROC ARTHROSCOPY SHOULDER W/ OPEN ROTATOR CUFF REPAIR Left 2011 BOVINE PATCH ANGIOPLASTY CUTDOWN FEMORAL Right 01/01/2024 Performed by Deuce Kirkland MD at [facility] SPECIAL PROC BOVINE PATCH ANGIOPLASTY ILEOFEMORAL Right 01/01/2024 Performed by Deuce Kirkland MD at [facility] SPECIAL PROC BYPASS ARTERY FEMORAL BELOW KNEE POPLITEAL W/ VEIN PATCH/ HIGH GSV LIGATION AND HARVEST Right 01/01/2024 Performed by Deuce Kirkland MD at [facility] SPECIAL PROC CARDIAC SURGERY CATARACT EXTRACTION CHOLECYSTECTOMY N/A 2008 CORONARY ARTERY BYPASS GRAFT 1998 x 5 ENDARTERECTOMY FEMORAL AND ILIOFEMORAL ENDARTERECTOMY Right 01/01/2024 Performed by Deuce Kirkland MD at [facility] SPECIAL PROC EYE SURGERY HERNIA REPAIR N/A 03/2012 HIP FRACTURE SURGERY Left 05/2017 HYSTERECTOMY N/A JOINT REPLACEMENT lower ext angiogram Bilateral 01/07/2022 Performed by Taryn Belle MD at [facility] CARDIAC CATH LABS SCLEROTHERAPY LOWER EXTREMITY Right 12/24/2023 Performed by Deuce Kirkland MD at [facility] TOTAL HIP ARTHROPLASTY Left 2019 VASCULAR SURGERY [...] Hilda Smith MD. 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 difficile colitis Chronic ulcer of lower extremity ([facility]) Non-pressure chronic ulcer of right lower leg, limited to breakdown of skin ([facility]) Chronic ulcer of right heel ([facility]) Closed fracture of neck of femur ([facility]) Complete tear of right rotator cuff Diarrhea Essential hypertension Gastroesophageal reflux disease Hip bursitis, left Hypercalcemia Hyperlipidemia Immunocompromised state ([facility]) Ingrown nail 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 ([facility]) 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 Other abnormalities of gait and mobility Recurrent Clostridioides difficile diarrhea Recurrent UTI Urge incontinence Venous insufficiency (chronic) (peripheral) 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) Peripheral vascular disease ([facility]) 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 ([facility]) Venous ulcer of right leg ([facility]) Critical limb ischemia of both lower extremities with rest pain ([facility]) Venous ulcer of ankle, right ([facility]) Encounter for therapeutic drug monitoring Past Medical History: Past Medical History: Diagnosis Date Anesthesia complication 2018 HAD HALLUCINATIONS FOR A FEW DAYS AFTER HIP SURGERY Arrhythmia Arthritis C. difficile diarrhea 12/2022 HOSPITALIZED, 01/2023 Cataract Cholecystitis Chronic kidney disease Colitis Coronary artery disease Critical limb ischemia of right lower extremity ([facility]) Dental disease UPPER AND LOWER DENTURE DIAZ (dyspnea on exertion) Fractures 2018 LEFT HIP GERD (gastroesophageal reflux disease) HL (hearing loss) Hyperlipidemia Hypertension Microscopic colitis PAD (peripheral artery disease) ([facility]) Peptic ulceration BLEEDING ULCER ADMITTED 2018 X13 DAYS TATYANA Rash Skin cancer REMOVED Sleep apnea No CPAP Thin skin Urinary tract infection CHRONIC, SEES ID EVERY 3 MONTHS Visual impairment Wound of ankle RIGHT SINCE 07/2023 Past Surgical History: Past Surgical History: Procedure Laterality Date ABDOMINAL SURGERY ANGIOGRAM EXTREMITY LOWER Right 01/01/2024 Performed by Deuce Kirkland MD at [facility] SPECIAL PROC ANGIOPLASTY ILIAC STENT PLACEMENT Right 01/01/2024 Performed by Deuce Kirkland MD at [facility] SPECIAL PROC ANGIOPLASTY ILIAC-ILIAC SHOCKWAVE INTRAVASCULAR LITHOTRIPSY Right 11/18/2023 Performed by Deuce Kirkland MD at [facility] SPECIAL PROC ARTHROSCOPY SHOULDER W/ OPEN ROTATOR CUFF REPAIR Left 2011 BOVINE PATCH ANGIOPLASTY CUTDOWN FEMORAL Right 01/01/2024 Performed by Deuce Kirkland MD at [facility] SPECIAL PROC BOVINE PATCH ANGIOPLASTY ILEOFEMORAL Right 01/01/2024 Performed by Deuce Kirkland MD at [facility] SPECIAL PROC BYPASS ARTERY FEMORAL BELOW KNEE POPLITEAL W/ VEIN PATCH/ HIGH GSV LIGATION AND HARVEST Right 01/01/2024 Performed by Deuce Kirkland MD at [facility] SPECIAL PROC CARDIAC SURGERY CATARACT EXTRACTION CHOLECYSTECTOMY N/A 2008 CORONARY ARTERY BYPASS GRAFT 1998 x 5 ENDARTERECTOMY FEMORAL AND ILIOFEMORAL ENDARTERECTOMY Right 01/01/2024 Performed by Deuce Kirkland MD at [facility] SPECIAL PROC EYE SURGERY HERNIA REPAIR N/A 03/2012 HIP FRACTURE SURGERY Left 05/2017 HYSTERECTOMY N/A JOINT REPLACEMENT lower ext angiogram Bilateral 01/07/2022 Performed by Taryn Belle MD at [facility] CARDIAC CATH LABS SCLEROTHERAPY LOWER EXTREMITY Right 12/24/2023 Performed by Deuce Kirkland MD at [facility]IP ARTHROPLASTY Left 2019 VASCULAR [...] found for: VERYLOWLIP No results found for: [id number] No results found for: FOLATE No results [...] 100 mg 100 mg oral TID Devorah aL MD 100 mg at 01/05/24 0616 glucagon [...] 10 mg 10 mg oral Q4H PRN Devoarh La MD 10 mg at103/04/23 2233 polyethylene glycol (GLYCOLAX) packet 17 g 17 g oral Daily PRN Aroldo Burns APRN-LIS potassium chloride (K-TAB,KLOR-CON) CR tablet 20-50 mEq [...] mg 2.5 mg oral BID with meals Aroldo Burns APRN-ROOMING HOUSE OPERATOR 2.5 mg at 01/05/24 0838 sodium phosphate [...] Skin (per nursing flow sheets): Skin Color: [place] (01/04/241999) Skin Temp: Warm (01/04/241999) Wound (per [...] Wound 11/18/23 Incision Groin Right-Site Assessment: Painful; [place]; Fragile (01/04/241999) Wound 01/02/24 Incision Pretibial Proximal;Right-Site [...] nursing flow sheets): RUE Edema: +1 (01/04/24 0740) LUE Edema: +1 (01/04/24 0740) RLE Edema: [...] balanced meals. No strong food preferences. 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 Allergies: Allergies Allergen Reactions Nsaids (Non-Steroidal Anti-Inflammatory [...] (01/04/24 0740) 25-75% intakes per nursing flowsheet (). Patient and family note decreased appetite after [...] Scale, 12/31) Usual Body Weight: 63 kg [place] Body Weight: 68.2 kg Percent [place] Body Weight: 98% Weight Changes: Stable per patient Body Mass Index: Body mass index is 22.4 kg/m . BMI Category: Normal range (18.50- 24.99) Comparative Standards: Estimated Energy Needs: 8122-0943 kcals daily. Method and weight used: 25-30 kcal/kg IBW Estimated Protein Needs: 82-136 grams daily. Method and weight used: 1.2-2 g protein/kg IBW Estimated Fluid Needs: 7908-9404 ml daily. Method weight used: 25-30 ml/kg [...] LD Clinical Dietitian Direct Line: * Aroldo Yancey Grant, MUD TRUCKER-ROOMING HOUSE OPERATOR - 01/04/2024 1:22 PM EST Images from [...] last 7 days Lab Units 01/04/24 0506 11/25/45801/02/2419901/01/24204412/31/23 0937 WBC X10E9/L 15.7* 14.3* 11.9* 13.3* 7.5 HEMOGLOBIN g/dL 8.8* 9.2* 8.8* 8.9* 10.3* HEMATOCRIT % 25.8* 27.1* 25.6* 25.8* 29.8* PLATELETS X10E9/L 224 303 285 270 387 Results from last 7 days Lab Units 01/04/24 1144 01/04/24 1001 01/04/2472301/04/24 0506 01/03/24 2152 01/03/24 1520 01/03/24 1345 01/03/2421 01/03/2445801/02/2419901/01/24204412/31/23 0937 POTASSIUM mmol/L -- -- -- 5.4* [...] last 7 days Lab Units 01/03/2445801/02/2419901/01/24204412/31/23 0937 INR 1.0 1.1 1.2* 1.1 PROTIME [...] Awaiting dispo for sniff placement XAVIER Francis [facility] [place] Daytime office/After-hours call number: [phone] This note was created with the assistance of a speech-recognition program. Although the intention is to generate a document that actually reflects the content of the visit, no guarantees can be provided that every mistake has been identified and corrected by editing. XAVIER Brown 01/04/24 1322 XAVIER Brown 01/04/24 1334 * TIFFANIE Evans [...] if she is ready for void trial, [phone] -Discussed with TIFFANIE Longo 01/04/24 3113 Cosigned by Russ Yarbrough MD at 01/04/2024 12:13 PM EST * Coy Gaytan RN - 01/03/2024 10:45 PM EST Images from the original note were not included. FOLLOW-UP: Post-Intensive Care Rounding Note Patient: Delicia Hsu : 1935 Age: 88 y.o. 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 Recorded vital signs are stable and the patient is not noted to be in any apparent distress. Telemetry and monitoring noted. Staff may call with any issues or concerns regarding her clinical presentation or stability. Thank you, Coy Gaytan RN Rapid Response: [facility] * Bonnie Wetzel RN - 01/03/2024 12:35 PM EST Images from the original note were not included. FOLLOW-UP: Post-Intensive Care Rounding Note Patient: Delicia Hsu : 1935 Age: 88 y.o. 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 Recorded vital signs are stable and the patient is not noted to be in any apparent distress. Telemetry and monitoring noted. Staff may call with any issues or concerns regarding her clinical presentation or stability. Thank you, BONNIE WETZEL RN Rapid Response: [facility] * Devorah La MD - 01/03/2024 10:02 AM EST [facility] [place] Vascular Service Progress Note Patient ID: Delicia Hsu, 88 y.o. 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 difficile colitis Chronic ulcer of lower extremity ([facility]) Non-pressure chronic ulcer of right lower leg, limited to breakdown of skin ([facility]) Chronic ulcer of right heel ([facility]) Closed fracture of neck of femur ([facility]) Complete tear of right rotator cuff Diarrhea Essential hypertension Gastroesophageal reflux disease Hip bursitis, left Hypercalcemia Hyperlipidemia Immunocompromised state ([facility]) Ingrown nail 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 ([facility]) 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 Other abnormalities of gait and mobility Recurrent Clostridioides difficile diarrhea Recurrent UTI Urge incontinence Venous insufficiency (chronic) (peripheral) 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 ([facility]) Peripheral vascular disease ([facility]) 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 ([facility] Venous ulcer of right leg ([facility]) Critical limb ischemia of both lower extremities with rest pain ([facility]) Venous ulcer of ankle, right ([facility]) Encounter for therapeutic drug monitoring OBJECTIVE: Vitals [...] Units 01/03/24 0459 01/02/24 0200 01/01/24204412/31/23 0937 WBC X10E9/L 14.3* 11.9* 13.3* 7.5 HEMOGLOBIN g/dL 9.2* 8.8* 8.9* 10.3* HEMATOCRIT % 27.1* 25.6* 25.8* 29.8* PLATELETS X10E9/L 303 285 270 387 Results from last 7 days Lab Units 01/03/24 0721 01/03/24 0459 01/02/24 0200 01/01/24204412/31/23 0937 SODIUM mmol/L -- 137 136 136 139 POTASSIUM mmol/L -- 5.1* 4.7 4.3 4.2 CO2 mmol/L -- 23 21* 22 22 BUN mg/dL -- 31* 22 22 25 CREATININE mg/dL -- 1.32* 0.96 0.97 1.18* BEDSIDE GLUCOSE mg/dL 103* -- -- -- -- GLUCOSE mg/dL -- 105* 153* 143* 85 Results from last 7 days Lab Units 01/03/24 0459 01/02/24 0200 01/01/24 2045 12/31/23 0937 INR 1.0 1.1 1.2* 1.1 PROTIME [...] ischemia of right lower extremity with gangrene ([facility]) [I70.261] Rapid response rounding on patient after transfer out of ICU. No acute changes noted. Staff encouraged to call with any issues, questions or concerns that may arise regarding the patient throughout the shift. Thank you, Jarod Nunez RN Rapid Response: [facility] * Ron Medellin MD - 01/02/2024 9:49 AM EST [facility] [place] [facility] Progress Note Patient ID: Delicia Hsu, 88 y.o. female Date of Admission: 01/01/2024 10:09 AM MRN; [id number] Referring Physician: Deuce Kirklnad MD PCP: GYPSY MCMAHON MD SUBJECTIVE AND INTERVAL HISTORY: Pt seen and examined at bedside. No acute events overnight per pt and nurse. 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 difficile colitis Chronic ulcer of lower extremity ([facility]) Non-pressure chronic ulcer of right lower leg, limited to breakdown of skin ([facility]) Chronic ulcer of right heel ([facility]) Closed fracture of neck of femur ([facility]) Complete tear of right rotator cuff Diarrhea Essential hypertension Gastroesophageal reflux disease Hip bursitis, left Hypercalcemia Hyperlipidemia Immunocompromised state ([facility]) Ingrown nail 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 ([facility]) 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 Other abnormalities of gait and mobility Recurrent Clostridioides difficile diarrhea Recurrent UTI Urge incontinence Venous insufficiency (chronic) (peripheral) 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 ([facility]) Peripheral vascular disease ([facility]) 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 ([facility] Venous ulcer of right leg ([facility]) Critical limb ischemia of both lower extremities with rest pain ([facility]) Venous ulcer of ankle, right ([facility]) Encounter for therapeutic drug monitoring OBJECTIVE: Vitals [...] days Lab Units 01/02/24 0200 01/01/24204412/31/23 0937 INR 1.1 1.2* 1.1 PROTIME sec [...] fellow's findings and plan. [facility] care [facility] * Plan of Care - Laquita Argueta RN - 01/07/2024 4:19 AM EST Problem: Pain Goal: Patient goal is pain score less than 4, able to rest, and participant in treatment plan as appropriate Description: INTERVENTIONS: 1. Encourage patient or legal corporate sales representative to report early pain and ask [...] per policy 9. Teach patient or legal corporate sales representative interventions for comforting Outcome: Progressing Note: [...] at the bedside 7. Instruct patient/ patient corporate sales representative about use of safety devices 8. Include patient/ patient corporate sales representative in decisions related to safety Outcome: [...] hygiene technique 7. Identify and instruct patient/patient corporate sales representative in use of appropriate isolation precautionsfor identified infection/symptoms 8. Provide and discuss with patient/patient corporate sales representative on educational MDRO sheet 9. Encourage and monitor nutritional status daily and consult associate dean of students if indicated 10. Implement neutropenic guidelines as needed 11. Review exposure to history of communicable disease and recent travel history on admission 12. Encourage annual influenza vaccine 13. Encourage pneumonia vaccine Outcome: Progressing Note: Evaluation of progress towards goal: Vitals sign wnl. No sign of infection noted. 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 Complete learning assessment and assess knowledge base 2. Provide teaching at level of understanding 3. Provide teaching via preferred learning method(s) Outcome: Progressing Note: Evaluation of progress towards goal: Patient/patient corporate sales representative demonstrates understanding of disease process, treatment [...] Score of =/> 25 or indicated by [facility] Assessment Goal: Patient should be free from fall Description: Interventions: 1. [place] to environment 2. Hourly rounds addressing the [...] non-skid footwear 11. Teach patient and patient corporate sales representative to maintain environment for safety and [...] (cane, walker) within reach 19. Request patient corporate sales representative bring adaptive equipment/mobility aids from home or obtain and provide as needed 20. Consult pharmacy regarding effects of med's affecting mobility, cognition, and alternatives 21. Obtain physician order for PT if risk factors associated with mobility are present 22. Obtain physician order for OT as appropriate 23. Utilize diversional activities 24. Educate patient and patient corporate sales representative how to maintain a safe environment during visitationtimes (notify nurse prior to leaving bedside) 25. Consider appropriateness of medical or non-medical officer 26. Set up voiding schedule as appropriate (every 2 hours) Outcome: Progressing Note: Evaluation of progress towards goal: Area free from hazards, patient call light within reach,will continue to monitor patient for risk of falls. [facility] Plan of care note* Plan of Care - Matilda Wilson RN - 01/06/2024 2:13 PM EST Problem: Pain Goal: Patient goal is pain score less than 4, able to rest, and participant in treatment plan as appropriate Description: INTERVENTIONS: 1. Encourage patient or legal corporate sales representative to report early pain and ask [...] per policy 9. Teach patient or legal corporate sales representative interventions for comforting Outcome: Not Progressing [...] at the bedside 7. Instruct patient/ patient corporate sales representative about use of safety devices 8. Include patient/ patient corporate sales representative in decisions related to safety Outcome: Progressing Note: Evaluation of progress towards goal: Family member at bedside. Patient educated to use the call light to call for assistance. Hourly rounding completed to meet patient's needs. Problem: Knowledge Deficit Goal: Patient/patient corporate sales representative demonstrates understanding of disease process, treatment [...] progress towards goal: Patient anticipates d/c to [place] for rehab therapy. [facility]11-27-2024 Plan of care note* Plan of Care - Laquita Argueta RN - 01/05/2024 11:47 PM EST Problem: Pain Goal: Patient goal is pain score less than 4, able to rest, and participant in treatment plan as appropriate Description: INTERVENTIONS: 1. Encourage patient or legal corporate sales representative to report early pain and ask [...] per policy 9. Teach patient or legal corporate sales representative interventions for comforting Outcome: Progressing Note: [...] at the bedside 7. Instruct patient/ patient corporate sales representative about use of safety devices 8. Include patient/ patient corporate sales representative in decisions related to safety Outcome: [...] hygiene technique 7. Identify and instruct patient/patient corporate sales representative in use of appropriate isolation precautionsfor identified infection/symptoms 8. Provide and discuss with patient/patient corporate sales representative on educational MDRO sheet 9. Encourage and monitor nutritional status daily and consult associate dean of students if indicated 10. Implement neutropenic guidelines as needed 11. Review exposure to history of communicable disease and recent travel history on admission 12. Encourage annual influenza vaccine 13. Encourage pneumonia vaccine Outcome: Progressing Note: Evaluation of progress towards goal: IV antibiotics continues for infection. Tolerating meds.Vitals within normal limits. 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 Complete learning assessment and assess knowledge base 2. Provide teaching at level of understanding 3. Provide teaching via preferred learning method(s) Outcome: Progressing Note: Evaluation of progress towards goal: Patient/patient corporate sales representative demonstrates understanding of disease process, treatment [...] be free from fall Description: Interventions: 1. [place] to environment 2. Hourly rounds addressing the [...] non-skid footwear 11. Teach patient and patient corporate sales representative to maintain environment for safety and [...] (cane, walker) within reach 19. Request patient corporate sales representative bring adaptive equipment/mobility aids from home or obtain and provide as needed 20. Consult pharmacy regarding effects of med's affecting mobility, cognition, and alternatives 21. Obtain physician order for PT if risk factors associated with mobility are present 22. Obtain physician order for OT as appropriate 23. Utilize diversional activities 24. Educate patient and patient corporate sales representative how to maintain a safe environment during visitationtimes (notify nurse prior to leaving bedside) 25. Consider appropriateness of medical or non-medical officer 26. Set up voiding schedule as appropriate (every 2 hours) Outcome: Progressing Note: Evaluation of progress towards goal: Area free from hazards, patient call light within reach,will continue to monitor patient for risk of falls. [facility] [employer]11-27-2024 Progress note* Discharge Planning Note - Juan Branch - 01/05/2024 10:11 AM EST DISCHARGE PLANNING NOTE Clinical Updates Sent to [facility] [place] (P# ; F# ) [facility] Progress note* Discharge Planning Note - IVAN Coles - 01/05/2024 9:56 AM EST DISCHARGE PLANNING NOTE Task to [facility] to follow. - IVAN Coles 01/05/24 9:56 AM [facility] Plan of care note* Plan of Care - Monie Brown RN - 01/05/2024 7:38 AM EST Problem: Pain Goal: Patient goal is pain score less than 4, able to rest, and participant in treatment plan as appropriate Description: INTERVENTIONS: 1. Encourage patient or legal corporate sales representative to report early pain and ask [...] per policy 9. Teach patient or legal corporate sales representative interventions for comforting Outcome: Progressing Note: [...] at the bedside 7. Instruct patient/ patient corporate sales representative about use of safety devices 8. Include patient/ patient corporate sales representative in decisions related to safety Outcome: [...] hygiene technique 7. Identify and instruct patient/patient corporate sales representative in use of appropriate isolation precautionsfor identified infection/symptoms 8. Provide and discuss with patient/patient corporate sales representative on educational MDRO sheet 9. Encourage and monitor nutritional status daily and consult associate dean of students if indicated 10. Implement neutropenic guidelines as needed 11. Review exposure to history of communicable disease and recent travel history on admission 12. Encourage annual influenza vaccine 13. Encourage pneumonia vaccine Outcome: Progressing Note: Evaluation of progress towards goal: Antibiotics started Problem: Knowledge Deficit Goal: Patient/patient corporate sales representative demonstrates understanding of disease process, treatment [...] goal: Reviewed plan of care with patient [facility] Plan of care note* Plan of Care - Laquita Argueta RN - 01/05/2024 12:01 AM EST Problem: Pain Goal: Patient goal is pain score less than 4, able to rest, and participant in treatment plan as appropriate Description: INTERVENTIONS: 1. Encourage patient or legal corporate sales representative to report early pain and ask [...] per policy 9. Teach patient or legal corporate sales representative interventions for comforting Outcome: Progressing Note: [...] at the bedside 7. Instruct patient/ patient corporate sales representative about use of safety devices 8. Include patient/ patient corporate sales representative in decisions related to safety Outcome: [...] hygiene technique 7. Identify and instruct patient/patient corporate sales representative in use of appropriate isolation precautionsfor identified infection/symptoms 8. Provide and discuss with patient/patient corporate sales representative on educational MDRO sheet 9. Encourage and monitor nutritional status daily and consult associate dean of students if indicated 10. Implement neutropenic guidelines as needed 11. Review exposure to history of communicable disease and recent travel history on admission 12. Encourage annual influenza vaccine 13. Encourage pneumonia vaccine Outcome: Progressing Note: Evaluation of progress towards goal: IV antibiotics continues for infection. Tolerating meds.Vitals within normal limits. 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 Complete learning assessment and assess knowledge base 2. Provide teaching at level of understanding 3. Provide teaching via preferred learning method(s) Outcome: Progressing Note: Evaluation of progress towards goal: Patient/patient corporate sales representative demonstrates understanding of disease process, treatment [...] Score of =/> 25 or indicated by [facility] Assessment Goal: Patient should be free from fall Description: Interventions: 1. [place] to environment 2. Hourly rounds addressing the [...] non-skid footwear 11. Teach patient and patient corporate sales representative to maintain environment for safety and [...] (cane, walker) within reach 19. Request patient corporate sales representative bring adaptive equipment/mobility aids from home or obtain and provide as needed 20. Consult pharmacy regarding effects of med's affecting mobility, cognition, and alternatives 21. Obtain physician order for PT if risk factors associated with mobility are present 22. Obtain physician order for OT as appropriate 23. Utilize diversional activities 24. Educate patient and patient corporate sales representative how to maintain a safe environment during visitationtimes (notify nurse prior to leaving bedside) 25. Consider appropriateness of medical or non-medical officer 26. Set up voiding schedule as appropriate (every 2 hours) Outcome: Progressing Note: Evaluation of progress towards goal: Area free from hazards, patient call light within reach,will continue to monitor patient for risk of falls. [facility] [employer] [id number] Plan of care note* Plan of Care - Bhumika Neely RN - 01/04/2024 1:19 PM EST Problem: Pain Goal: Patient goal is pain score less than 4, able to rest, and participant in treatment plan as appropriate Description: INTERVENTIONS: 1. Encourage patient or legal corporate sales representative to report early pain and ask [...] per policy 9. Teach patient or legal corporate sales representative interventions for comforting Outcome: Progressing Note: [...] at the bedside 7. Instruct patient/ patient corporate sales representative about use of safety devices 8. Include patient/ patient corporate sales representative in decisions related to safety Outcome: Progressing Note: Evaluation of progress towards goal: Assessed patient's risk for falls and implemented fall prevention plan of care per policy. Provided and maintained a safe environment. Pt remains free from falls and injury during this stay. [employer]11-26-2024 Progress note* PT/OT/SUPERINTENDENT TRACK - Fanny Ericksonman, PT - 01/04/2024 11:42 AM EST Physical Therapy Treatment Discharge Recommendations PT Recommendations: [facility] SNF/ECF Comments: Continue to recommend SNF. Pt now requiring 2 person assist for bed mobility and transfers with Ana Stedy. Increased confusion noted. 6 Clicks: Basic Mobility [...] belt, Ana Stedy, O2, bed/chair alarm, [place] Telemetry/Library Services Coordinator: Yes Oxygen Used: 2L via [place] Other: [...] complete with max A x 2. Ana Heidi then utilized. Pt required assist for bilat [...] seated EOB for safety. Limited ability to ka[place] koh[place] reo Ana Stedy.) Activity Tolerance Endurance: Tolerates <30 [...] Patient will perform bed mobility with Modified [place] Dates: Start: 01/02/24 Expected End: 01/08/24 Description: HOB elevated and use of rail as needed Disciplines: PT Outcomes Date/Time User Outcome 01/04/24 1142 Fanny Roberts PT Not Progressing Problem: Gait Dates: Start: 01/02/24 Disciplines: PT Goal: Patient will perform gait with Modified [place] Dates: Start: 01/02/24 Expected End: 01/08/24 Description: With__RW__,__100__feet Goal Description: to facilitate household ambulation Disciplines: PT Outcomes Date/Time User Outcome 01/04/24 Tomasa Roberts PT Not Progressing Problem: ROM Dates: Start: 01/02/24 Disciplines: PT Goal: Improve ROM Dates: Start: 01/02/24 Expected End: 01/08/24 Description: Of extremity/ location: R knee to 0-90 degrees To facilitate: improved ability to transfer Disciplines: PT Outcomes Date/Time User Outcome 01/04/24 1142 Fanny Roberts PT Not Progressing Problem: Standing Balance Dates: Start: 01/02/24 Disciplines: PT Goal: Improve balance to good Dates: Start: 01/02/24 Expected End: 01/08/24 Description: Static with RW Dynamic with RW To promote safety with transfers and gait. Disciplines: PT Outcomes Date/Time User Outcome 01/04/24 1142 Fanny Roberts PT Not Progressing Problem: Strength Dates: Start: 01/02/24 Disciplines: PT Goal: Improve strength Dates: Start: 01/02/24 Expected End: 01/08/24 Description: Pt will perform x15 reps, AROM, of all prescribed LE exercises to improve strength andfacilitate their ability to transfer and ambulate. Disciplines: PT Outcomes Date/Time User Outcome 01/04/24 114Brooklynn Roberts PT Not Progressing Problem: Transfers Dates: Start: 01/02/24 Disciplines: PT Goal: Patient will perform transfers with Modified [place] Dates: Start: 01/02/24 Expected End: 01/08/24 Description: Goal Description: Using appropriate technique and hand placement for safety at home Disciplines: PT Outcomes Date/Time User Outcome 01/04/24 1142 Fanny Roberts PT Not Progressing Physical Therapy Care Plan (Resolved) There are no resolved problems. 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 ([facility]) [employer] Work Phone: [phone]) 976-360511-26-2024 Progress note* PT/OT/SUPERINTENDENT TRACK - Lila Nguyen OTR/L - 01/04/2024 11:38 AM EST Occupational Therapy Evaluation Discharge Recommendations OT Recommendations : [facility] SNF/ECF Comments: Recommending SNF as pt [...] little Scoring Daily Activity Raw Score: 13 [facility] G Code Modifier: CL Therapy Plan Need [...] Critical limb ischemia of right lower extremity ([facility]) Dental disease UPPER AND LOWER DENTURE DIAZ (dyspnea on exertion) Fractures 2018 LEFT HIP GERD (gastroesophageal reflux disease) HL (hearing loss) Hyperlipidemia Hypertension Microscopic colitis PAD (peripheral artery disease) ([facility]) Peptic ulceration BLEEDING ULCER ADMITTED 2018 X13 DAYS TATYANA Rash Skin cancer REMOVED Sleep apnea No CPAP Thin skin Urinary tract infection CHRONIC, SEES ID EVERY 3 MONTHS Visual impairment Wound of ankle RIGHT SINCE 07/2023 Past Surgical History: Procedure Laterality Date ABDOMINAL SURGERY ANGIOGRAM EXTREMITY LOWER Right 01/01/2024 Performed by Deuce Kirkland MD at [facility] SPECIAL PROC ANGIOPLASTY ILIAC STENT PLACEMENT Right 01/01/2024 Performed by Deuce Kirkland MD at [facility] SPECIAL PROC ANGIOPLASTY ILIAC-ILIAC SHOCKWAVE INTRAVASCULAR LITHOTRIPSY Right 11/18/2023 Performed by Deuce Kirkland MD at [facility] SPECIAL PROC ARTHROSCOPY SHOULDER W/ OPEN ROTATOR CUFF REPAIR Left 2011 BOVINE PATCH ANGIOPLASTY CUTDOWN FEMORAL Right 01/01/2024 Performed by Deuce Kirkland MD at [facility] SPECIAL PROC BOVINE PATCH ANGIOPLASTY ILEOFEMORAL Right 01/01/2024 Performed by Deuce Kirkland MD at [facility] SPECIAL PROC BYPASS ARTERY FEMORAL BELOW KNEE POPLITEAL W/ VEIN PATCH/ HIGH GSV LIGATION AND HARVEST Right 01/01/2024 Performed by Deuce Kirkland MD at [facility] SPECIAL PROC CARDIAC SURGERY CATARACT EXTRACTION CHOLECYSTECTOMY N/A 2008 CORONARY ARTERY BYPASS GRAFT 1999 x 5 ENDARTERECTOMY FEMORAL AND ILIOFEMORAL ENDARTERECTOMY Right 01/01/2024 Performed by Deuce Kirkland MD at [facility] SPECIAL PROC EYE SURGERY HERNIA REPAIR N/A 03/2012 HIP FRACTURE SURGERY Left 05/2017 HYSTERECTOMY N/A JOINT REPLACEMENT lower ext angiogram Bilateral 01/07/2022 Performed by Taryn Belle MD at [facility] CARDIAC CATH LABS SCLEROTHERAPY LOWER EXTREMITY Right 12/24/2023 Performed by Deuce Kirkland MD at [facility] TOTAL HIP ARTHROPLASTY Left 2019 VASCULAR [...] stedy, bed/chair alarm, O2 via NC, [place] Telemetry/Library Services Coordinator: Yes Oxygen Used: 2L via [place] Other: [...] : 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 Prior Function Lives With: Son (lives with [...] Reduced Other: pt confused and lethargic this . requires extensive time for processing. RN aware. [...] Gait Other: not safe to attempt this Balance Sitting Balance: Static: Fair Sitting Balance: [...] Goal: Patient will perform grooming with Modified [place] Dates: Start: 01/04/24 Expected End: 02/01/24 Description: [...] ischemia of right lower extremity with gangrene ([facility]) [facility]11-26-2024 Consult note* Letty Minor RPH - 01/04/2024 11:05 AM EST [facility] Department of Pharmacy Pharmacist to Physician Communication The patient will be started on cefepime 1000 mg every 12 hours with a loading dose to be given over30 minutes, followed by a maintenance dose to be given over 4 hours for the treatment of UTI via extended infusion per the [facility] approved renal dosing guidelines, based on an estimated creatinine clearance of 38.6 mL/min. Pharmacy will continue to follow the patient's clinical status closely and makethe necessary dosage adjustments if her renal function changes. Thank you for consulting pharmacy. Letty Minor RPh [facility]11-26-2024 Consult note* Letty Minor RPH - 01/04/2024 11:05 AM EST [facility] Department of Pharmacy Pharmacist to Physician Communication The patient will be started on cefepime 1000 mg every 12 hours with a loading dose to be given over30 minutes, followed by a maintenance dose to be given over 4 hours for the treatment of UTI via extended infusion per the [facility] approved renal dosing guidelines, based on an estimated creatinine clearance of 38.6 mL/min. Pharmacy will continue to follow the patient's clinical status closely and makethe necessary dosage adjustments if her renal function changes. Thank you for consulting pharmacy. Letty Minor RPh * Hilda Smith MD - 01/04/2024 10:17 AM EST Images from the original note were not included. Delicia Hsu [id number] CONSULTING SERVICE: INFECTIOUS DISEASES REASON FOR [...] Procedure Component Value Units Date/Time Urine culture [[id number]] Resulted: 01/03/24 1547 Specimen: Urine Updated: 01/03/24 155 PROBLEMS MANAGED BY OTHERS: Microscopic colitis Chronic [...] she follows and Infectious Disease doctor at [facility] in [facility]. SUBJECTIVE: As above. No new events reported by nursing staff. REVIEW OF SYSTEMS: Otherwise unremarkable except for what is noted above PHYSICAL EXAMINATION: Seen With NS. GENERAL: Well built, well developed. No distress. Nontoxic. EYES: Anicteric sclerae. No conjunctival petechiae. [place] conjunctivae. HEENT: Bilateral pinna without any erythema [...] Critical limb ischemia of right lower extremity ([facility]) Dental disease UPPER AND LOWER DENTURE DIAZ (dyspnea on exertion) Fractures 2018 LEFT HIP GERD (gastroesophageal reflux disease) HL (hearing loss) Hyperlipidemia Hypertension Microscopic colitis PAD (peripheral artery disease) ([facility]) Peptic ulceration BLEEDING ULCER ADMITTED 2018 X13 DAYS TATYANA Rash Skin cancer REMOVED Sleep apnea No CPAP Thin skin Urinary tract infection CHRONIC, SEES ID EVERY 3 MONTHS Visual impairment Wound of ankle RIGHT SINCE 07/2023 PAST SURGICAL HISTORY: Past Surgical History: Procedure Laterality Date ABDOMINAL SURGERY ANGIOGRAM EXTREMITY LOWER Right 01/01/2024 Performed by Deuce Kirkland MD at [facility] SPECIAL PROC ANGIOPLASTY ILIAC STENT PLACEMENT Right 01/01/2024 Performed by Deuce Kirkland MD at [facility] SPECIAL PROC ANGIOPLASTY ILIAC-ILIAC SHOCKWAVE INTRAVASCULAR LITHOTRIPSY Right 11/18/2023 Performed by Deuce Kirkland MD at [facility] SPECIAL PROC ARTHROSCOPY SHOULDER W/ OPEN ROTATOR CUFF REPAIR Left 2011 BOVINE PATCH ANGIOPLASTY CUTDOWN FEMORAL Right 01/01/2024 Performed by Deuce Kirkland MD at [facility] SPECIAL PROC BOVINE PATCH ANGIOPLASTY ILEOFEMORAL Right 01/01/2024 Performed by Deuce Kirkland MD at [facility] SPECIAL PROC BYPASS ARTERY FEMORAL BELOW KNEE POPLITEAL W/ VEIN PATCH/ HIGH GSV LIGATION AND HARVEST Right 01/01/2024 Performed by Deuce Kirkland MD at [facility] SPECIAL PROC CARDIAC SURGERY CATARACT EXTRACTION CHOLECYSTECTOMY N/A 2008 CORONARY ARTERY BYPASS GRAFT 1999 x 5 ENDARTERECTOMY FEMORAL AND ILIOFEMORAL ENDARTERECTOMY Right 01/01/2024 Performed by Deuce Kirkland MD at [facility] SPECIAL PROC EYE SURGERY HERNIA REPAIR N/A 03/2012 HIP FRACTURE SURGERY Left 05/2017 HYSTERECTOMY N/A JOINT REPLACEMENT lower ext angiogram Bilateral 01/07/2022 Performed by Taryn Belle MD at [facility] CARDIAC CATH LABS SCLEROTHERAPY LOWER EXTREMITY Right 12/24/2023 Performed by Deuce Kirkland MD at [facility] TOTAL HIP ARTHROPLASTY Left 2019 VASCULAR SURGERY [...] Hilda Smith MD. Answering service: Perfect serve: [phone] * Russ Yarbrough MD - 01/03/2024 12:51 [...] being planned. Patient is seen by [facility], history urethral sling in 2009, since that [...] Critical limb ischemia of right lower extremity ([facility]) Dental disease UPPER AND LOWER DENTURE DIAZ (dyspnea on exertion) Fractures 2018 LEFT HIP GERD (gastroesophageal reflux disease) HL (hearing loss) Hyperlipidemia Hypertension Microscopic colitis PAD (peripheral artery disease) ([facility]) Peptic ulceration BLEEDING ULCER ADMITTED 2018 X13 DAYS TATYANA Rash Skin cancer REMOVED Sleep apnea No CPAP Thin skin Urinary tract infection CHRONIC, SEES ID EVERY 3 MONTHS Visual impairment Wound of ankle RIGHT SINCE 07/2023 Past Surgical History: Past Surgical History: Procedure Laterality Date ABDOMINAL SURGERY ANGIOGRAM EXTREMITY LOWER Right 01/01/2024 Performed by Deuce Kirkland MD at [facility] SPECIAL PROC ANGIOPLASTY ILIAC STENT PLACEMENT Right 01/01/2024 Performed by Duece Kirkland MD at [facility] SPECIAL PROC ANGIOPLASTY ILIAC-ILIAC SHOCKWAVE INTRAVASCULAR LITHOTRIPSY Right 11/18/2023 Performed by Deuce Kirkland MD at [facility] SPECIAL PROC ARTHROSCOPY SHOULDER W/ OPEN ROTATOR CUFF REPAIR Left 2011 BOVINE PATCH ANGIOPLASTY CUTDOWN FEMORAL Right 01/01/2024 Performed by Deuce Kirkland MD at [facility] SPECIAL PROC BOVINE PATCH ANGIOPLASTY ILEOFEMORAL Right 01/01/2024 Performed by Deuce Kirkland MD at [facility] SPECIAL PROC BYPASS ARTERY FEMORAL BELOW KNEE POPLITEAL W/ VEIN PATCH/ HIGH GSV LIGATION AND HARVEST Right 01/01/2024 Performed by Deuce Kirkland MD at [facility] SPECIAL PROC CARDIAC SURGERY CATARACT EXTRACTION CHOLECYSTECTOMY N/A 2008 CORONARY ARTERY BYPASS GRAFT 1998 x 5 ENDARTERECTOMY FEMORAL AND ILIOFEMORAL ENDARTERECTOMY Right 01/01/2024 Performed by Deuce Kirkland MD at [facility] SPECIAL PROC EYE SURGERY HERNIA REPAIR N/A 03/2012 HIP FRACTURE SURGERY Left 05/2017 HYSTERECTOMY N/A JOINT REPLACEMENT lower ext angiogram Bilateral 01/07/2022 Performed by Taryn Belle MD at [facility] CARDIAC CATH LABS SCLEROTHERAPY LOWER EXTREMITY Right 12/24/2023 Performed by Deuce Kirkland MD at [facility] TOTAL HIP ARTHROPLASTY 2019 VASCULAR SURGERY Angiogram Medications: Scheduled Meds: [...] F) Oral 66 13 96 % -- 01/02/24 2322 -- -- -- 68 14 95 % [...] of the aforementioned history prepared by the [place] practice provider, and I personally performed the clinical examination of the patient. I discussed the treatment plan with the patient. Patient to keep her catheter in place until she is ambulatory of a voiding trial . [facility] Consult note* Hilda Smith MD - 01/04/2024 10:17 AM EST Images from the original note were not included. Delicia Hsu [id number] 1935 CONSULTING SERVICE: INFECTIOUS DISEASES REASON FOR [...] Procedure Component Value Units Date/Time Urine culture [[id number]] Resulted: 01/03/24 1547 Specimen: Urine Updated: 01/03/24 [...] she follows and Infectious Disease doctor at [facility] in [facility]. SUBJECTIVE: As above. No new events reported by nursing staff. REVIEW OF SYSTEMS: Otherwise unremarkable except for what is noted above PHYSICAL EXAMINATION: Seen With NS. GENERAL: Well built, well developed. No distress. Nontoxic. EYES: Anicteric sclerae. No conjunctival petechiae. [place] conjunctivae. HEENT: Bilateral pinna without any erythema [...] Critical limb ischemia of right lower extremity ([facility]) Dental disease UPPER AND LOWER DENTURE DIAZ (dyspnea on exertion) Fractures 2018 LEFT HIP GERD (gastroesophageal reflux disease) HL (hearing loss) Hyperlipidemia Hypertension Microscopic colitis PAD (peripheral artery disease) ([facility]) Peptic ulceration BLEEDING ULCER ADMITTED 2018 X13 DAYS TATYANA Rash Skin cancer REMOVED Sleep apnea No CPAP Thin skin Urinary tract infection CHRONIC, SEES ID EVERY 3 MONTHS Visual impairment Wound of ankle RIGHT SINCE 07/2023 PAST SURGICAL HISTORY: Past Surgical History: Procedure Laterality Date ABDOMINAL SURGERY ANGIOGRAM EXTREMITY LOWER Right 01/01/2024 Performed by Deuce Kirkland MD at [facility] SPECIAL PROC ANGIOPLASTY ILIAC STENT PLACEMENT Right 01/01/2024 Performed by Deuce Kirkland MD at [facility] SPECIAL PROC ANGIOPLASTY ILIAC-ILIAC SHOCKWAVE INTRAVASCULAR LITHOTRIPSY Right 11/18/2023 Performed by Deuce Kirkland MD at [facility] SPECIAL PROC ARTHROSCOPY SHOULDER W/ OPEN ROTATOR CUFF REPAIR Left 2011 BOVINE PATCH ANGIOPLASTY CUTDOWN FEMORAL Right 01/01/2024 Performed by Deuce Kirkland MD at [facility] SPECIAL PROC BOVINE PATCH ANGIOPLASTY ILEOFEMORAL Right 01/01/2024 Performed by Deuce Kirkland MD at [facility] SPECIAL PROC BYPASS ARTERY FEMORAL BELOW KNEE POPLITEAL W/ VEIN PATCH/ HIGH GSV LIGATION AND HARVEST Right 01/01/2024 Performed by Deuce Kirkland MD at [facility] SPECIAL PROC CARDIAC SURGERY CATARACT EXTRACTION CHOLECYSTECTOMY N/A 2008 CORONARY ARTERY BYPASS GRAFT 1998 x 5 ENDARTERECTOMY FEMORAL AND ILIOFEMORAL ENDARTERECTOMY Right 01/01/2024 Performed by Deuce Kirkland MD at [facility] SPECIAL PROC EYE SURGERY HERNIA REPAIR N/A 03/2012 HIP FRACTURE SURGERY Left 05/2017 HYSTERECTOMY N/A JOINT REPLACEMENT lower ext angiogram Bilateral 01/07/2022 Performed by Taryn Belle MD at [facility] CARDIAC CATH LABS SCLEROTHERAPY LOWER EXTREMITY Right 12/24/2023 Performed by Deuce Kirkland MD at [facility] TOTAL HIP ARTHROPLASTY Left 2019 VASCULAR [...] Signed by, Hilda Smith MD. Answering service: Angelo serve: [phone] [facility] [id number] Plan of care note* Plan of Care - Kodak Clark RN - 01/04/2024 12:13 AM EST Problem: Pain Goal: Patient goal is pain score less than 4, able to rest, and participant in treatment plan as appropriate Description: INTERVENTIONS: 1. Encourage patient or legal corporate sales representative to report early pain and ask [...] per policy 9. Teach patient or legal corporate sales representative interventions for comforting Outcome: Progressing Note: [...] at the bedside 7. Instruct patient/ patient corporate sales representative about use of safety devices 8. Include patient/ patient corporate sales representative in decisions related to safety Outcome: [...] hygiene technique 7. Identify and instruct patient/patient corporate sales representative in use of appropriate isolation precautionsfor identified infection/symptoms 8. Provide and discuss with patient/patient corporate sales representative on educational MDRO sheet 9. Encourage and monitor nutritional status daily and consult associate dean of students if indicated 10. Implement neutropenic guidelines as needed 11. Review exposure to history of communicable disease and recent travel history on admission 12. Encourage annual influenza vaccine 13. Encourage pneumonia vaccine Outcome: Progressing Note: Evaluation of progress towards goal: Pt free from s/s of infection. Will continue to monitor. 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 Complete learning assessment and assess knowledge base 2. Provide teaching at level of understanding 3. Provide teaching via preferred learning method(s) Outcome: Progressing Note: Plan of care reviewed with patient. Questions answered. Will continue to assess. [facility] [id number] Progress note* Discharge Planning Note - Kelly Badillo RN - 01/03/2024 2:43 PM EST Images from the original note were not included. DISCHARGE PLANNING NOTE Chart reviewed, patient unable to stay awake for interaction. Daughter at bedside and discussed discharge planning with her and PT recs for SNF placement. Daughter states that patient is in the independent living portion of [facility] and lives with her son. She states that patient is in agreement with placement and they would like a referrals to [facility] in [facility] prison, tasked referral to be made and they [...] Yes Patient Goals: Patient/Caregiver Goals Patient/Caregiver Goals: Jail Care Skilled [place] Care: Skilled Care (Short Term) Goals: Goals Daughter stated: Discharge to SNF and then back to independent living with resumption of home care,. (pt-stated) Evaluation of progress towards goal: [facility]11-25-20[facility] Progress note* Discharge Planning Note - Sabrina Shaan - 01/03/2024 1:41 PM EST DISCHARGE PLANNING NOTE Referral to [facility] [place] (P# ; F# ) [facility]11-[facility] Consult note* Russ Yarbrough MD - [...] is being planned. Patient is seen [facility] [place] [facility], history urethral sling in 2009, since that [...] Critical limb ischemia of right lower extremity ([facility]) Dental disease UPPER AND LOWER DENTURE DIAZ (dyspnea on exertion) Fractures 2018 LEFT HIP GERD (gastroesophageal reflux disease) HL (hearing loss) Hyperlipidemia Hypertension Microscopic colitis PAD (peripheral artery disease) ([facility] [facility]) Peptic ulceration BLEEDING ULCER ADMITTED 2018 X13 DAYS TATYANA Rash Skin cancer REMOVED Sleep apnea No CPAP Thin skin Urinary tract infection CHRONIC, SEES ID EVERY 3 MONTHS Visual impairment Wound of ankle RIGHT SINCE 07/2023 Past Surgical History: Past Surgical History: Procedure Laterality Date ABDOMINAL SURGERY ANGIOGRAM EXTREMITY LOWER Right 01/01/2024 Performed by Deuce Kirkland MD at [facility] SPECIAL PROC ANGIOPLASTY ILIAC STENT PLACEMENT Right 01/01/2024 Performed by Deuce Kirkland MD at [facility] SPECIAL PROC ANGIOPLASTY ILIAC-ILIAC SHOCKWAVE INTRAVASCULAR LITHOTRIPSY Right 11/18/2023 Performed by Deuce Kirkland MD at [facility] SPECIAL PROC ARTHROSCOPY SHOULDER W/ OPEN ROTATOR CUFF REPAIR Left 2011 BOVINE PATCH ANGIOPLASTY CUTDOWN FEMORAL Right 01/01/2024 Performed by Deuce Kirkland MD at [facility] SPECIAL PROC BOVINE PATCH ANGIOPLASTY ILEOFEMORAL Right 01/01/2024 Performed by Deuce Kirkland MD at [facility] SPECIAL PROC BYPASS ARTERY FEMORAL BELOW KNEE POPLITEAL W/ VEIN PATCH/ HIGH GSV LIGATION AND HARVEST Right 01/01/2024 Performed by Deuce Kirkland MD at [facility] SPECIAL PROC CARDIAC SURGERY CATARACT EXTRACTION CHOLECYSTECTOMY N/A 2008 CORONARY ARTERY BYPASS GRAFT 1998 x 5 ENDARTERECTOMY FEMORAL AND ILIOFEMORAL ENDARTERECTOMY Right 01/01/2024 Performed by Deuce Kirkland MD at [facility] SPECIAL PROC EYE SURGERY HERNIA REPAIR N/A 03/2012 HIP FRACTURE SURGERY Left 05/2017 HYSTERECTOMY N/A JOINT REPLACEMENT lower ext angiogram Bilateral 01/07/2022 Performed by Taryn Belle MD at [facility] CARDIAC CATH LABS SCLEROTHERAPY LOWER EXTREMITY Right 12/24/2023 Performed by Deuce Kirkland MD at [facility] TOTAL HIP ARTHROPLASTY Left 2019 VASCULAR [...] F) Oral 66 13 96 % -- 01/02/24 2322 -- -- -- 68 14 95 % [...] of the aforementioned history prepared by the [place] practice provider, and I personally performed the clinical examination of the patient. I discussed the treatment plan with the patient. Patient to keep her catheter in place until she is ambulatory of a voiding trial . [employer] Work Phone: 1(546) 250-163611-25-2024 Progress note* Discharge Planning Note - IVAN Coles - 01/03/2024 12:06 PM EST DISCHARGE PLANNING NOTE Sw attempted to meet with pt to complete assessment and discuss post acute care needs. Staff currently providing care to pt at bedside. Will follow-up again later. - IVAN Coles 01/03/24 12:09 PM [facility]11-25-2024 Progress note* PT/OT/SUPERINTENDENT TRACK - Lila Nguyen OTR/L - 01/03/2024 8:44 AM EST Occupational Therapy OT Type of Visit: Medical deferral (pt with open wounds as she was unable to tolerate dressing paindue to pain. will check back as able.) [facility]11-25-2024 Plan of care note* Plan of Care - Bhumika Neely RN - 01/03/2024 8:24 AM EST Problem: Pain Goal: Patient goal is pain score less than 4, able to rest, and participant in treatment plan as appropriate Description: INTERVENTIONS: 1. Encourage patient or legal corporate sales representative to report early pain and ask [...] per policy 9. Teach patient or legal corporate sales representative interventions for comforting Outcome: Progressing Note: [...] at the bedside 7. Instruct patient/ patient corporate sales representative about use of safety devices 8. Include patient/ patient corporate sales representative in decisions related to safety Outcome: [...] hygiene technique 7. Identify and instruct patient/patient corporate sales representative in use of appropriate isolation precautionsfor identified infection/symptoms 8. Provide and discuss with patient/patient corporate sales representative on educational MDRO sheet 9. Encourage and monitor nutritional status daily and consult associate dean of students if indicated 10. Implement neutropenic guidelines as needed 11. Review exposure to history of communicable disease and recent travel history on admission 12. Encourage annual influenza vaccine 13. Encourage pneumonia vaccine Outcome: Progressing Note: Evaluation of progress towards goal: Patient remains afebrile, no new s/s of infection at this time. Hand hygiene continued per protocol. Will continue to monitor. [facility]11-25-2024 Plan of care note* Plan of Care - Kodak Clark RN - 01/03/2024 1:21 AM EST Problem: Pain Goal: Patient goal is pain score less than 4, able to rest, and participant in treatment plan as appropriate Description: INTERVENTIONS: 1. Encourage patient or legal corporate sales representative to report early pain and ask [...] per policy 9. Teach patient or legal corporate sales representative interventions for comforting Outcome: Progressing Note: [...] at the bedside 7. Instruct patient/ patient corporate sales representative about use of safety devices 8. Include patient/ patient corporate sales representative in decisions related to safety Outcome: [...] hygiene technique 7. Identify and instruct patient/patient corporate sales representative in use of appropriate isolation precautionsfor identified infection/symptoms 8. Provide and discuss with patient/patient corporate sales representative on educational MDRO sheet 9. Encourage and monitor nutritional status daily and consult associate dean of students if indicated 10. Implement neutropenic guidelines as needed 11. Review exposure to history of communicable disease and recent travel history on admission 12. Encourage annual influenza vaccine 13. Encourage pneumonia vaccine Outcome: Progressing Note: Evaluation of progress towards goal: Pt free from s/s of infection. Will continue to monitor. 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 Complete learning assessment and assess knowledge base 2. Provide teaching at level of understanding 3. Provide teaching via preferred learning method(s) Outcome: Progressing Note: Plan of care reviewed with patient. Questions answered. Will continue to assess. [employer]11-24-2024 Progress note* PT/OT/SUPERINTENDENT TRACK - Leif Raymond, PT - 01/02/2024 4:56 PM EST Physical Therapy Evaluation Discharge Recommendations PT Recommendations: Jail Facility SNF/ECF Comments: At this time pt [...] 6 Clicks: Basic Mobility Raw Score: 13 CMS G Code Modifier: CK Therapy Plan Need [...] Critical limb ischemia of right lower extremity ([facility]) Dental disease UPPER AND LOWER DENTURE DIAZ (dyspnea on exertion) Fractures 2018 LEFT HIP GERD (gastroesophageal reflux disease) HL (hearing loss) Hyperlipidemia Hypertension Microscopic colitis PAD (peripheral artery disease) ([facility]) Peptic ulceration BLEEDING ULCER ADMITTED 2018 X13 DAYS TATYANA Rash Skin cancer REMOVED Sleep apnea No CPAP Thin skin Urinary tract infection CHRONIC, SEES ID EVERY 3 MONTHS Visual impairment Wound of ankle RIGHT SINCE 07/2023 Past Surgical History: Procedure Laterality Date ABDOMINAL SURGERY ANGIOPLASTY ILIAC-ILIAC SHOCKWAVE INTRAVASCULAR LITHOTRIPSY Right 11/18/2023 Performed by Deuce Kirkland MD at [facility] SPECIAL PROC ARTHROSCOPY SHOULDER W/ OPEN ROTATOR CUFF REPAIR Left 2011 CARDIAC SURGERY CATARACT EXTRACTION CHOLECYSTECTOMY N/A 2008 CORONARY ARTERY BYPASS GRAFT 1998 x 5 EYE SURGERY HERNIA REPAIR N/A 03/2012 HIP FRACTURE SURGERY Left 05/2017 HYSTERECTOMY N/A JOINT REPLACEMENT lower ext angiogram Bilateral 01/07/2022 Performed by Taryn Belle MD at [facility] CARDIAC CATH LABS SCLEROTHERAPY LOWER EXTREMITY Right 12/24/2023 Performed by Deuce Kirkland MD at [facility] TOTAL HIP ARTHROPLASTY Left 2019 VASCULAR [...] pole Weight Bearing Status: no formal orders Telemetry/Library Services Coordinator: Yes Oxygen Used: room air Other: high [...] Patient will perform bed mobility with Modified [place] Dates: Start: 01/02/24 Expected End: 01/08/24 Description: HOB elevated and use of rail as needed Disciplines: PT Problem: Gait Dates: Start: 01/02/24 Disciplines: PT Goal: Patient will perform gait with Modified [place] Dates: Start: 01/02/24 Expected End: 01/08/24 Description: [...] Goal: Patient will perform transfers with Modified [place] Dates: Start: 01/02/24 Expected End: 01/08/24 Description: Goal Description: Using appropriate technique and hand placement for safety at home Disciplines: PT Physical Therapy Care Plan (Resolved) There are no resolved problems. 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 Encourage patient or legal corporate sales representative to report early pain and ask [...] per policy 9. Teach patient or legal corporate sales representative interventions for comforting Outcome: Progressing Note: [...] at the bedside 7. Instruct patient/ patient corporate sales representative about use of safety devices 8. Include patient/ patient corporate sales representative in decisions related to safety Outcome: [...] hygiene technique 7. Identify and instruct patient/patient corporate sales representative in use of appropriate isolation precautionsfor identified infection/symptoms 8. Provide and discuss with patient/patient corporate sales representative on educational MDRO sheet 9. Encourage and monitor nutritional status daily and consult associate dean of students if indicated 10. Implement neutropenic guidelines as needed 11. Review exposure to history of communicable disease and recent travel history on admission 12. Encourage annual influenza vaccine 13. Encourage pneumonia vaccine Outcome: Progressing Note: Evaluation of progress towards goal: Monitor labs and vital signs. Patient afebrile at this time. Problem: Knowledge Deficit Goal: Patient/patient corporate sales representative demonstrates understanding of disease process, treatment [...] Discharge planning and education reviewed with patient. [facility]11-23-2024 Procedure note* Op Note - Deuce Kirkland MD - 01/01/2024 1:53 PM EST Patient Name: Delicia Hsu Medical Record: [id number] Date of Operation: 01/02/2024 Preoperative Diagnosis: Right [...] loops. I then exposed the popliteal artery [id number]. The angiogram shows that there is constitution [id number]. To my surprise the heavy calcification in [...] QUENTIN, RPVI, FSVS, FACS JOBST Vascular Surgery [facility]11-23-2024 Attending History and physical note* Deuce Kirkland MD - 01/01/2024 12:45 PM EST HISTORY AND PHYSICAL INTERVAL NOTE: Delicia Hsu 1935 [id number] H&P reviewed. The patient was examined and [...] loss) Hyperlipidemia Hypertension PAD (peripheral artery disease) ([facility]) Peptic ulceration BLEEDING ULCER ADMITTED 2018 X13 DAYS TATYANA Rash Skin cancer REMOVED Sleep apnea no cpap Thin skin Urinary tract infection CHRONIC, SEES ID EVERY 3 MONTHS Visual impairment Wound of ankle RIGHT SINCE 07/2023 Past Surgical History: Past Surgical History: Procedure Laterality Date ABDOMINAL SURGERY ANGIOPLASTY ILIAC-ILIAC SHOCKWAVE INTRAVASCULAR LITHOTRIPSY Right 11/18/2023 Performed by Deuce Kirkland MD at [facility] SPECIAL PROC ARTHROSCOPY SHOULDER W/ OPEN ROTATOR CUFF REPAIR Left 2011 CARDIAC SURGERY CATARACT EXTRACTION CHOLECYSTECTOMY N/A 2008 CORONARY ARTERY BYPASS GRAFT 1998 X5 EYE SURGERY HERNIA REPAIR N/A 03/2012 HIP FRACTURE SURGERY Left 05/2017 HYSTERECTOMY N/A JOINT REPLACEMENT lower ext angiogram Bilateral 01/07/2022 Performed by Taryn Belle MD at [facility] CARDIAC CATH LABS SCLEROTHERAPY LOWER EXTREMITY Right 12/24/2023 Performed by Deuce Kirkland MD at [facility] TOTAL HIP ARTHROPLASTY Left 2019 VASCULAR [...] Deuce Kirkland MD, QUENTIN, RPVI, FSVS, FACS [facility] This note was created with the assistance of a speech recognition program. While intending to generate a timely document that accurately reflects the content of the visit, no guarantee can be provided that every grammatical or spelling mistake has been or will be identified or corrected. Thank you for your understanding. [facility]11-23-2024 History and physical note* Deuce Kirkland MD - 01/01/2024 12:45 PM EST HISTORY AND PHYSICAL INTERVAL NOTE: Delicia Hsu 1935 [id number] H&P reviewed. The patient was examined and [...] loss) Hyperlipidemia Hypertension PAD (peripheral artery disease) ([facility]) Peptic ulceration BLEEDING ULCER ADMITTED 2018 X13 DAYS TATYANA Rash Skin cancer REMOVED Sleep apnea no cpap Thin skin Urinary tract infection CHRONIC, SEES ID EVERY 3 MONTHS Visual impairment Wound of ankle RIGHT SINCE 07/2023 Past Surgical History: Past Surgical History: Procedure Laterality Date ABDOMINAL SURGERY ANGIOPLASTY ILIAC-ILIAC SHOCKWAVE INTRAVASCULAR LITHOTRIPSY Right 11/18/2023 Performed by Deuce Kirkland MD at [facility] SPECIAL PROC ARTHROSCOPY SHOULDER W/ OPEN ROTATOR CUFF REPAIR Left 2011 CARDIAC SURGERY CATARACT EXTRACTION CHOLECYSTECTOMY N/A 2008 CORONARY ARTERY BYPASS GRAFT 1998 X5 EYE SURGERY HERNIA REPAIR N/A 03/2012 HIP FRACTURE SURGERY Left 05/2017 HYSTERECTOMY N/A JOINT REPLACEMENT lower ext angiogram Bilateral 01/07/2022 Performed by Taryn Belle MD at [facility] CARDIAC CATH LABS SCLEROTHERAPY LOWER EXTREMITY Right 12/24/2023 Performed by Deuce Kirkland MD at [facility] TOTAL HIP ARTHROPLASTY Left 2019 VASCULAR [...] Deuce Kirkland MD, QUENTIN, RPVI, FSVS, FACS [facility] This note was created with the assistance of a speech recognition program. While intending to generate a timely document that accurately reflects the content of the visit, no guarantee can be provided that every grammatical or spelling mistake has been or will be identified or corrected. Thank you for your understanding. [facility] Nurse Note* Perioperative Nursing Note - Nancy Rubio RN - 12/31/2023 2:29 PM EST Pre adm labs sent to Dr Kirkland [facility]11-22-2024 History and physical note* TIFFANIE Ribera - 12/31/2023 8:30 AM EST PRE-ADMISSION TESTING HISTORY AND PHYSICAL EXAM DATE: 12/31/23 PCP: GYPSY MCMAHON MD CHIEF COMPLAINT: Claudication HISTORY OF PRESENT ILLNESS: Delicia Hsu, a 88 y.o. White or female, presents to [facility] for a pre- surgical H&P. Thepatient reports [...] Hypertension Microscopic colitis PAD (peripheral artery disease) ([facility]) Peptic ulceration BLEEDING ULCER ADMITTED 2018 X13 DAYS TATYANA Rash Skin cancer REMOVED Sleep apnea No CPAP Thin skin Urinary tract infection CHRONIC, SEES ID EVERY 3 MONTHS Visual impairment Wound of ankle RIGHT SINCE 07/2023 PAST SURGICAL HISTORY: Past Surgical History: Procedure Laterality Date ABDOMINAL SURGERY ANGIOPLASTY ILIAC-ILIAC SHOCKWAVE INTRAVASCULAR LITHOTRIPSY Right 11/18/2023 Performed by Deuce Kirkland MD at [facility] SPECIAL PROC ARTHROSCOPY SHOULDER W/ OPEN ROTATOR CUFF REPAIR Left 2011 CARDIAC SURGERY CATARACT EXTRACTION CHOLECYSTECTOMY N/A 2008 CORONARY ARTERY BYPASS GRAFT 1998 x 5 EYE SURGERY HERNIA REPAIR N/A 03/2012 HIP FRACTURE SURGERY Left 05/2017 HYSTERECTOMY N/A JOINT REPLACEMENT lower ext angiogram Bilateral 01/07/2022 Performed by Taryn Belle MD at [facility] CARDIAC CATH LABS SCLEROTHERAPY LOWER EXTREMITY Right 12/24/2023 Performed by Deuce Kirkland MD at [facility] TOTAL HIP ARTHROPLASTY Left 2019 VASCULAR [...] Behavior: Behavior normal. PERTINENT TESTING AVAILABLE IN [facility] (WITHIN THE PAST 2 YEARS): EK11/10/2023 [facility]: *Pending cardiology interpretation* Echo: No results found. [...] the most recent lab values available in [facility] at the time the H&P was signed. *Per department policy, chart managers to follow and report testing. ASSESSMENT / DIAGNOSIS: Right Lower Extremity Ischemia, Arterial Occlusive Disease PLAN: Delicia Hsu is scheduled for Endarterectomy Femoral (Iliofemoral Endarterectomy) - Right Angioplasty Iliac - Right Bypass Artery Femoral Popliteal - Right with Dr. Kirkland on 01/01/2024. TIFFANIE Ribera 12/31/23 0955 [facility]11-22-2024 History and physical note* TIFFANIE Ribera - 12/31/2023 8:30 AM EST PRE-ADMISSION TESTING HISTORY AND PHYSICAL EXAM DATE: 12/31/23 PCP: GYPSY MCMAHON MD CHIEF COMPLAINT: Claudication HISTORY OF PRESENT ILLNESS: Delicia Hsu, a 88 y.o. White or female, presents to [facility] for a pre- surgical H&P. Thepatient reports [...] Critical limb ischemia of right lower extremity ([facility]) Dental disease UPPER AND LOWER DENTURE DIAZ (dyspnea on exertion) Fractures 2018 LEFT HIP GERD (gastroesophageal reflux disease) HL (hearing loss) Hyperlipidemia Hypertension Microscopic colitis PAD (peripheral artery disease) ([facility]) Peptic ulceration BLEEDING ULCER ADMITTED 2018 X13 DAYS TATYANA Rash Skin cancer REMOVED Sleep apnea No CPAP Thin skin Urinary tract infection CHRONIC, SEES ID EVERY 3 MONTHS Visual impairment Wound of ankle RIGHT SINCE 07/2023 PAST SURGICAL HISTORY: Past Surgical History: Procedure Laterality Date ABDOMINAL SURGERY ANGIOPLASTY ILIAC-ILIAC SHOCKWAVE INTRAVASCULAR LITHOTRIPSY Right 11/18/2023 Performed by Deuce Kirkland MD at [facility] SPECIAL PROC ARTHROSCOPY SHOULDER W/ OPEN ROTATOR CUFF REPAIR Left 2011 CARDIAC SURGERY CATARACT EXTRACTION CHOLECYSTECTOMY N/A 2008 CORONARY ARTERY BYPASS GRAFT 1998 x 5 EYE SURGERY HERNIA REPAIR N/A 03/2012 HIP FRACTURE SURGERY Left 05/2017 HYSTERECTOMY N/A JOINT REPLACEMENT lower ext angiogram Bilateral 01/07/2022 Performed by Taryn Belle MD at [facility] CARDIAC CATH LABS SCLEROTHERAPY LOWER EXTREMITY Right 12/24/2023 Performed by Deuce Kirkland MD at [facility] TOTAL HIP ARTHROPLASTY Left 2019 VASCULAR [...] Behavior: Behavior normal. PERTINENT TESTING AVAILABLE IN [facility] (WITHIN THE PAST 2 YEARS): EK11/10/2023 [facility]: *Pending cardiology interpretation* Echo: No results found. [...] the most recent lab values available in [facility] at the time the H&P was signed. *Per department policy, chart managers to follow and report testing. ASSESSMENT / DIAGNOSIS: Right Lower Extremity Ischemia, Arterial Occlusive Disease PLAN: Delicia Hsu is scheduled for Endarterectomy Femoral (Iliofemoral Endarterectomy) - Right Angioplasty Iliac - Right Bypass Artery Femoral Popliteal - Right with Dr. Kirkland on 01/01/2024. TIFFANIE Ribera 12/31/23 0955 documented in this encounterOhio State [facility]ing [facility]11-[facility]24 Instructions* Patient Instructions* Chaya Monaco RN - 12/31/2023 8:30 AM EST Your surgery/procedure is scheduled at [facility] on 12/31 at [address] Time10:00 [facility] Address: [address] [place] [address] Park in [address] Parking lot located on [facility]. Report to the Entrance B. Check in at the information desk the surgery. The waiting room located on the second floor. If you have any questions prior to surgery, please call Pre-Admission Clinic at [phone] between 7:30 am and 4:30 pm Wednesday through Wednesday. If you have questions the morning of surgery, please call the Pre-op Department at [phone]. Notify your SURGEON if you develop any [...] piercings ,hair extensions that contain metal, nail croatian, make-up, and contact lens. You may brush [...] RIGHTS AND RESPONSIBILITIES As a patient at [facility], you have the right to: Receive medical care and be informed of who is taking care of you Be treated with dignity and respect Have a family member/corporate sales representative of choice and your physician notified of your admission Receive information and actively participate in decisions about your care and treatment Refuse care, treatment and services Decide who may provide your support and speak for you Access roman catholic and spiritual services Participate in ethical issues [...] of hospital charges and payment methods Patient/patient corporate sales representative responsibilities are to: Provide information [...] as promptly as possible documented in this encounterOhio State [facility]ing Hospital11-[facility]24 Evaluation + Plan note* Assessment & Plan Note - Deuce Kirkland MD - 12/30/2023 1:22 PM EST Associated Problem(s): 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 Sheis scheduled for Wednesday. [facility] Evaluation + Plan note* Assessment & Plan Note - Deuce Kirkland MD - 12/30/2023 1:22 PM ESTAssociated Problem(s): Venous insufficiency (chronic) (peripheral) I did ultrasound-guided injection sclerotherapy. I discussed with her that she will need a right lower extremity revascularization. I might need to use her vein. If I do not use her vein I will do ligation of her GSV. 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 documented in this encounterOhio State [facility]ing Hospital11-21-2024 History of Present illness Narrative* Deuce [...] loss) Hyperlipidemia Hypertension PAD (peripheral artery disease) ([facility]) Peptic ulceration BLEEDING ULCER ADMITTED 2018 X13 DAYS TATYANA Rash Skin cancer REMOVED Sleep apnea no cpap Thin skin Urinary tract infection CHRONIC, SEES ID EVERY 3 MONTHS Visual impairment Wound of ankle RIGHT SINCE 07/2023 Past Surgical History: Past Surgical History: Procedure Laterality Date ABDOMINAL SURGERY ANGIOPLASTY ILIAC-ILIAC SHOCKWAVE INTRAVASCULAR LITHOTRIPSY Right 11/18/2023 Performed by Deuce Kirkland MD at [facility] SPECIAL PROC ARTHROSCOPY SHOULDER W/ OPEN ROTATOR CUFF REPAIR Left 2011 CARDIAC SURGERY CATARACT EXTRACTION CHOLECYSTECTOMY N/A 2008 CORONARY ARTERY BYPASS GRAFT 1998 X5 EYE SURGERY HERNIA REPAIR N/A 03/2012 HIP FRACTURE SURGERY Left 05/2017 HYSTERECTOMY N/A JOINT REPLACEMENT lower ext angiogram Bilateral 01/07/2022 Performed by Taryn Belle MD at [facility] CARDIAC CATH LABS SCLEROTHERAPY LOWER EXTREMITY Right 12/24/2023 Performed by Deuce Kirkland MD at [facility] TOTAL HIP ARTHROPLASTY Left 2020 VASCULAR [...] you for your understanding. documented in this encounterMiddletown HospitalVideobot Harper University [id number] Miscellaneous Notes* Perioperative Nursing Note - Bushra Cole RN - 12/23/2023 3:00 PM EST Preoperative Education Checklist- General Surgery date: 12/23/14 Surgery time: 1400 Arrival time: 1200 1. Bring a photo ID and your insurance card with you the day of surgery. You will check in at the main lobby of the [facility]- registration desk is straight ahead as soon as you walk in. Tell them you are here for surgery. 2. If you have a Living Will/Durable Power of [employer] for Health Care that is not on [...] after you have bathed. 5. NO nail croatian/acrylic on at least one finger. If you are having a hand, wrist or foot surgery then all nail croatian and artificial/acrylic nails must be removed from [...] please call the Preadmission Testing office at [phone], Mon.-Fri. 7 a.m.-3 p.m. Leave a voicemail [...] days prior to procedure documented in this encounterOhio [facility]11-14-[facility]24 Nurse Note* Perioperative Nursing Note - Bushra Cole RN - 12/23/2023 3:00 PM EST Preoperative Education Checklist- General Surgery date: 12/23/14 Surgery time: 1400 Arrival time: 1200 1. Bring a photo ID and your insurance card with you the day of surgery. You will check in at the main lobby of the [facility]- registration desk is straight ahead as soon as you walk in. Tell them you are here for surgery. 2. If you have a Living Will/Durable Power of [place] [employer] for Health Care that is not on [...] after you have bathed. 5. NO nail croatian/acrylic on at least one finger. If you are having a hand, wrist or foot surgery then all nail croatian and artificial/acrylic nails must be removed from [...] please call the Preadmission Testing office at [phone], Mon.-Fri. 7 a.m.-3 p.m. Leave a voicemail [...] Stop taking 0 days prior to procedure [facility]11-05[facility] History of Present illness Narrative* Sunny Ingram, GENESIS - 12/14/2023 1:00 PM EST Images from [...] Unremarkable left total hip arthroplasty. 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 Trochanteric bursitis of left [...] develop for requiring urgent evaluation. 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 I discussed with her that we will get a PVR and she may need bilateral iliofemoral endarterectomy and bilateral lower extremity angiogram intervention is a hybrid procedure to improve the blood flow to her legs. [facility]10-[facility] Evaluation + Plan note* Assessment & Plan Note - Deuce Kirkland MD - 12/09/2023 10:39 AM EDTAssociated Problem(s): Venous ulcer of ankle, right (CMS-HCC) Discussed with her doing right GSV ablation and ultrasound-guided injection sclerotherapy For rightlower extremity venous ulcer and significant GSV reflux and varicose veins. We will also do Unna boot and wound care. [facility]10-[facility] Miscellaneous Notes* Assessment & Plan Note [...] boot and wound care. documented in this [facility]10-31-2024 History of Present illness Narrative* Deuce Kirkland [...] loss) Hyperlipidemia Hypertension PAD (peripheral artery disease) ([facility]) Peptic ulceration BLEEDING ULCER ADMITTED 2018 X13 DAYS TATYANA Rash Skin cancer REMOVED Sleep apnea no cpap Thin skin Urinary tract infection CHRONIC, SEES ID EVERY 3 MONTHS Visual impairment Wound of ankle RIGHT SINCE 07/2023 Past Surgical History: Past Surgical History: Procedure Laterality Date ABDOMINAL SURGERY ANGIOPLASTY ILIAC-ILIAC SHOCKWAVE INTRAVASCULAR LITHOTRIPSY Right 11/18/2023 Performed by Deuce Kirkland MD at [facility] SPECIAL PROC ARTHROSCOPY SHOULDER W/ OPEN ROTATOR CUFF REPAIR Left 2011 CARDIAC SURGERY CATARACT EXTRACTION CHOLECYSTECTOMY N/A 2008 CORONARY ARTERY BYPASS GRAFT 1998 X5 EYE SURGERY HERNIA REPAIR N/A 03/2012 HIP FRACTURE SURGERY Left 05/2017 HYSTERECTOMY N/A JOINT REPLACEMENT lower ext angiogram Bilateral 01/07/2022 Performed by Taryn Belle MD at [facility] CARDIAC CATH LABS TOTAL HIP ARTHROPLASTY Left [...] Deuce Kirkland MD, QUENTIN, RPVI, FSVS, FACS [facility] [employer] This note was created with the assistance of a speech recognition program. While intending to generate a timely document that accurately reflects the content of the visit, no guarantee can be provided that every grammatical or spelling mistake has been or will be identified or corrected. Thank you for your understanding. documented in this encounterOhio State Harding Hospital10-08-2024 Instructions* Pre- Procedure Instructions - Cristine Stone RN - 11/16/2023 8:00 AM EDT Your surgery/procedure is scheduled at [facility] on 11/18/23 at [address] [facility] Address: [address] [place] [address]. [place] [address] Park in [address] Parking lot located on [facility]. Report to the Entrance B. Check in at the information desk the surgery. The waiting room located on the second floor. If you have any questions prior to surgery, please call Pre-Admission Clinic at [phone] between 7:30 am and 4:30 pm Wednesday through Wednesday. If you have questions the morning of surgery, please call the Pre-op Department at [phone]. Notify your SURGEON if you develop any [...] piercings ,hair extensions that contain metal, nail croatian, make-up, and contact lens. You may brush [...] RIGHTS AND RESPONSIBILITIES As a patient at [facility], you have the right to: Receive medical care and be informed of who is taking care of you Be treated with dignity and respect Have a family member/corporate sales representative of choice and your physician notified of your admission Receive information and actively participate in decisions about your care and treatment Refuse care, treatment and services Decide who may provide your support and speak for you Access roman catholic and spiritual services Participate in ethical issues [...] of hospital charges and payment methods Patient/patient corporate sales representative responsibilities are to: Provide information about health status to facilitate care, treatment and services Follow the treatment, plan, keep appointments and speak up when you do not understand the plan Respect the rights of other patients and healthcare personnel Follow organizational rules and regulations that support quality care and a safe environment Fulfill financial obligations as promptly as possible [facility]10-08-2024 Miscellaneous Notes* Perioperative Nursing Note - Cristine Stone RN - 11/16/2023 8:00 AM EDT CARDIAC CLEARANCE NOTED INTERMEDIATE NON-PROHIBITIVE RISK FOR CARDIOVASCULAR COMPLICATIONS . NOTE FORM KYREE FLETCHER NP 11/10/23 FOUND IN MEDIA * Pre-Procedure Instructions - Cristine Stone RN - 11/16/2023 8:00 AM EDT Your surgery/procedure is scheduled at [facility] on 11/18/23 at [address] [facility] Address: [address] [place] [address] Park in P1 Parking lot located on [facility]. Report to the Entrance B. Check in at the information desk the surgery. The waiting room located on the second floor. If you have any questions prior to surgery, please call Pre-Admission Clinic at [phone] between 7:30 am and 4:30 pm Wednesday through Wednesday. If you have questions the morning of surgery, please call the Pre-op Department at [phone]. Notify your SURGEON if you develop any [...] piercings ,hair extensions that contain metal, nail croatian, make-up, and contact lens. You may brush [...] RIGHTS AND RESPONSIBILITIES As a patient at [facility], you have the right to: Receive medical care and be informed of who is taking care of you Be treated with dignity and respect Have a family member/corporate sales representative of choice and your physician notified of your admission Receive information and actively participate in decisions about your care and treatment Refuse care, treatment and services Decide who may provide your support and speak for you Access roman catholic and spiritual services Participate in ethical issues [...] of hospital charges and payment methods Patient/patient corporate sales representative responsibilities are to: Provide information [...] as promptly as possible documented in this encounterMiddletown HospitalCloud [facility]aceuticals10-08-2024 Nurse Note* Perioperative Nursing Note - Cristine Stone RN - 11/16/2023 8:00 AM EDT CARDIAC CLEARANCE NOTED INTERMEDIATE NON-PROHIBITIVE RISK FOR CARDIOVASCULAR COMPLICATIONS . NOTE FORM KYREE FLETCHER NP 11/10/23 FOUND IN MEDIA [facility] [id number] NotePt here for a one year follow up. Pt denies sob, chest pain, palpatations. Review of Systems Cardiovascular: Positive for leg swelling. Gastrointestinal: Positive for diarrhea. All other systems reviewed and are negative.[facility] 11-09-2023 NoteCardiovascular Medicine [facility] SUBJECTIVE Chief Complaint Patient presents with [...] % 14.7 % monocy (more content not included)...[facility] 10-27-2023 Instructions* Pre-Procedure Instructions - Cristine Stone RN - 10/27/2023 12:45 PM EDT Your surgery/procedure is scheduled at [facility] on 11/05/23 at 1:30PM Arrival Time 11:30AM [facility] Address: [address] [place] [address]. [place] [address] Park in [address] Parking lot located on [facility]. Report to the Entrance B. Check in at the information desk the surgery. The waiting room located on the second floor. If you have any questions prior to surgery, please call Pre-Admission Clinic at [phone] between 7:30 am and 4:30 pm Wednesday through Wednesday. If you have questions the morning of surgery, please call the Pre-op Department at [phone]. Notify your SURGEON if you develop any [...] piercings ,hair extensions that contain metal, nail croatian, make-up, and contact lens. You may brush [...] RIGHTS AND RESPONSIBILITIES As a patient at [facility], you have the right to: Receive medical care and be informed of who is taking care of you Be treated with dignity and respect Have a family member/corporate sales representative of choice and your physician notified of your admission Receive information and actively participate in decisions about your care and treatment Refuse care, treatment and services Decide who may provide your support and speak for you Access roman catholic and spiritual services Participate in ethical issues [...] of hospital charges and payment methods Patient/patient corporate sales representative responsibilities are to: Provide information about health status to facilitate care, treatment and services Follow the treatment, plan, keep appointments and speak up when you do not understand the plan Respect the rights of other patients and healthcare personnel Follow organizational rules and regulations that support quality care and a safe environment Fulfill financial obligations as promptly as possible [facility]09-18-2024 Miscellaneous Notes* Pre-Procedure Instructions - Cristine Stone RN - 10/27/2023 12:45 PM EDT Your surgery/procedure is scheduled at [facility] on 11/05/23 at 1:30PM Arrival Time 11:30AM [facility] Address: [address] [place] [address]. [place] [address] Park in [address] Parking lot located on [facility]. Report to the Entrance B. Check in at the information desk the surgery. The waiting room located on the second floor. If you have any questions prior to surgery, please call Pre-Admission Clinic at [phone] between 7:30 am and 4:30 pm Wednesday through Wednesday. If you have questions the morning of surgery, please call the Pre-op Department at [phone]. Notify your SURGEON if you develop any [...] piercings ,hair extensions that contain metal, nail croatian, make-up, and contact lens. You may brush [...] RIGHTS AND RESPONSIBILITIES As a patient at [facility], you have the right to: Receive medical care and be informed of who is taking care of you Be treated with dignity and respect Have a family member/corporate sales representative of choice and your physician notified of your admission Receive information and actively participate in decisions about your care and treatment Refuse care, treatment and services Decide who may provide your support and speak for you Access roman catholic and spiritual services Participate in ethical issues [...] of hospital charges and payment methods Patient/patient corporate sales representative responsibilities are to: Provide information [...] as promptly as possible documented in this encounterOhio State Harding Hospital09-05-2024 Evaluation + Plan note* Assessment & Plan Note - Deuce Kirkland MD - 10/14/2023 11:20 AM EDT Associated Problem(s): Venous ulcer of right leg (CMS-HCC) We will get venous reflux ultrasound. We will proceed with arterial revascularization followed by venous intervention and Unna boot. [facility]09-05-[facility] Miscellaneous Notes* Assessment & Plan Note [...] simultaneously because of that documented in this encounterOhio State Harding Hospital09-05-2024 Evaluation + Plan note* Assessment & [...] cardiac risk stratification simultaneously because of that [facility]09-[facility] History of Present illness Narrative* Deuce [...] ROTATOR CUFF REPAIR Left 2011 CHOLECYSTECTOMY N/A 2009 HERNIA REPAIR N/A 03/2012 HIP FRACTURE SURGERY Left 05/2017 HYSTERECTOMY N/A lower ext angiogram Bilateral 01/07/2022 Performed by Taryn Belle MD at [facility] CARDIAC CATH LABS TOTAL HIP ARTHROPLASTY 2019 [...] Interpersonal Safety: Unknown (04/01/2023) Received from [facility] Safety & Environment Fear of Current or [...] you for your understanding. documented in this encounterMiddletown HospitalVideobot Harper University [id number] History of Present illness Narrative* Deuce Kirkland [...] 01/07/2022 Performed by Taryn Belle MD at [facility] CARDIAC CATH LABS TOTAL HIP ARTHROPLASTY 2019 [...] Interpersonal Safety: Unknown (04/01/2023) Received from [facility] [place] Safety & Environment Fear of Current or [...] Plan: Problem List PAD (peripheral artery disease) ([facility]) - Primary Overview Added automatically from request for surgery [id number] Delicia was seen today for pad. Diagnoses and all orders for this visit: PAD (peripheral artery disease) ([facility]) Deuce Kirkland MD, QUENTIN, RPVI, FSVS, FACS [...] you for your understanding. 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 Preventative measures were discussed. Vitamin C eltf-xca-dyohxso recommended as well as topical Thera workx [...] n due to immunosuppression (ICD-10 - Z91.89) [facility] Other 01-09-2024 Evaluation note* Encounter Date Diagnosis [...] pain. Feb, Pain, unspecified (ICD-10 - R52) [facility] Other 12-19-2023 Hospital Discharge instructions Patient Education 01/26/2023 16:05:17 Urinary Tract Infection, Adult, Ozxx-ng-Csct Urinary Tract Infection, Adult A urinary tract [...] Follow these instructions at home: Medicines Take wdaq-lhs-igsymna and prescription medicines only as told by [...] provider. Document Revised: 09/06/2020 Document Reviewed: 09/06/2020 [employer] Patient Education 2022 [employer]. Follow Up Care 06/09/2022 14:50:19 With:DEB ZAZUETA, MALATHI Olvera, URL Address: [address] [place] [address]. [place] [address] [phone] When: Unknown Comments:f[facility] [place] [facility] Evaluation note* Encounter Date Diagnosis Assessment Notes Treatment Notes Treatment Clinical Notes Jan, Diarrhea (ICD-10 - R19.7) [facility] Other 12-05-2023 Evaluation note* Encounter Date Diagnosis [...] a day, we will re-test for C-diff [facility] Other 11-28-2023 Evaluation note* Encounter Date Diagnosis Assessment Notes Treatment Notes Treatment Clinical Notes Dec, Clostridium difficile colitis (ICD-10 - A04.72) Finish meds as prescribed. (cipro, Flagyl) Followup w Dr. Brown as scheduled. Understands the c diff could recur. Followup as needed Discussed good nutrition and healthy diet. [facility] Other 11-20-2023 Evaluation note* Encounter Date Diagnosis Assessment Notes Treatment Notes Treatment Clinical Notes Dec, Diarrhea, unspecified type (ICD-10 - R19.7) Pt appears to be having secondary from viral infection. There is no abdominal pain on exam and pt is afebrile which is reassuring. C. diff infection is a possibility as she [facility], [...] Pt understands and agrees with the plan. [facility] Other 11-07-2023 Evaluation note* Encounter Date Diagnosis Assessment Notes Treatment Notes Treatment Clinical Notes Dec, Frequent UTI (ICD-10 - N39.0) [facility] Other 11-07-2023 Evaluation note* Encounter Date Diagnosis [...] w Dr. Licea today. Consider PT at [facility] or the [facility] Other 08-15-2023 Hospital Discharge instructions Patient Education 09/22/2022 15:32:53 Urinary Tract Infection, Adult, Cyxy-yp-Pyfw Urinary Tract Infection, Adult A urinary tract [...] Follow these instructions at home: Medicines Take poav-ffv-fbecimm and prescription medicines only as told by [...] provider. Document Revised: 09/06/2020 Document Reviewed: 09/06/2020 [employer] Patient Education 2022 [employer]. Follow Up Care 09/22/2022 10:38:22 With:MALATHI VIEIRA PA-C, JEFF Address: [address] [place] [address] When: Unknown [facility] 08-03-2023 Evaluation note* Encounter Date Diagnosis Assessment Notes Treatment Notes Treatment Clinical Notes Sep, Dysuria (ICD-10 - R30.0) [facility] Other 08-01-2023 Evaluation note* Encounter Date Diagnosis Assessment Notes Treatment Notes Treatment Clinical Notes Sep, Microscopic colitis, unspecified microscopic colitis type (ICD-10 - K52.839) [facility] Other 07-25-2023 Evaluation note* Encounter Date Diagnosis Assessment Notes Treatment Notes Treatment Clinical Notes Aug, Frequent UTI (ICD-10 - N39.0) Continue estrogen cream. Review with Urology on her followup appt. Discussed causes of UTIs Aug, Lymphocytic colitis (ICD-10 - K52.832) Improved with GI at [facility]. 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 Barry. Reviewed medications and explained their purpose. [facility] Other 07-20-2023 Evaluation note* Encounter Date Diagnosis Assessment Notes Treatment Notes Treatment Clinical Notes Aug, Recurrent UTI (ICD-10 - N39.0) [facility] Other 05-02-2023 Hospital Discharge instructions Patient Education 06/09/2022 14:15:56 Urinary Tract Infection, Adult, Rgie-fb-Yonv Urinary Tract Infection, Adult A urinary tract [...] Follow these instructions at home: Medicines Take jjtu-eil-vzwllqk and prescription medicines only as told by [...] provider. Document Revised: 09/06/2020 Document Reviewed: 09/06/2020 [employer] Patient Education 2022 [employer] [employer]. Follow Up Care 06/01/2022 10:03:13 With:CHER KRISHNAN, Marvin Camacho, URL Address: [facility] [address] , [place] [address] [phone] When:10/10/2022 [facility] 04-11-2023 Hospital Discharge instructions Patient Education [...] Treatment for this condition includes: Antibiotic medicine. Fvay-syk-oooospv medicines to treat discomfort. Drinking enough water [...] Follow these instructions at home: Medicines Take nemb-mtu-wrwceoe and prescription medicines only as told by [...] 11/04/2005 Document Revised: 01/12/2019 Document Reviewed: 08/04/2018 [employer] Patient Education 2019 [employer]. Follow Up Care 04/20/2022 10:50:51 With:DEB ZAZUETA, MALATHI Olvera, URL Address: [facility] [place] [address] When: Unknown [facility] 04-06-2023 Evaluation note* Encounter Date Diagnosis Assessment Notes Treatment Notes Treatment Clinical Notes May, Frequent UTI (ICD-10 - N39.0) [facility] Other 03-24-2023 Evaluation note* Encounter Date Diagnosis [...] back this morning. antibiotic at her pharmacy. [facility] Other 03-17-2023 Evaluation note* Encounter Date Diagnosis Assessment Notes Treatment Notes Treatment Clinical Notes Apr, Lymphocytic colitis (ICD-10 - K52.832) Continue Entyvio as directed Continue Lotronex 0.5 mg 1/2 tablet daily Rto 4 months [facility] Other 03-09-2023 Evaluation note* Encounter Date Diagnosis Assessment Notes Treatment Notes Treatment Clinical Notes Apr, Acute cystitis without hematuria (ICD-10 - N30.00) [facility] Other 02-28-2023 Evaluation note* Encounter Date Diagnosis Assessment Notes Treatment Notes Treatment Clinical Notes Mar, Recurrent UTI (ICD-10 - N39.0) Discussed options. Will try estrogen cream for vaginal health. Denies personal history of female cancers. Will also set up w Urology Mar, Colitis (ICD-10 - K52.9) Further treatment with Dr. Brown w appt on 04/24 [facility] Other 02-20-2023 Evaluation note* Encounter Date Diagnosis Assessment Notes Treatment Notes Treatment Clinical Notes Mar, Dysuria (ICD-10 - R30.0) [facility] Other 01-09-2023 Evaluation note* Encounter Date Diagnosis Assessment Notes Treatment Notes Treatment Clinical Notes Feb, Acute cystitis without hematuria (ICD-10 - N30.00) Sent to [facility] for urine culture - will treat based on results. Feb, Encounter for immunization (ICD-10 - Z23) Feb, Microscopic colitis, unspecified microscopic colitis type (ICD-10 - K52.839) Keep appt w Dr. Brown. Discussed boost or other supplement to gain weight Feb, Gastric ulcer (ICD-10 - K25.9) Encouraged her to continue pantoprazole [facility] Other 01-04-2023 Evaluation note* Encounter Date Diagnosis Assessment Notes Treatment Notes Treatment Clinical Notes Feb, Lymphocytic colitis (ICD-10 - K52.832) Start Entyvio infusions every 8 weeks Continue Budesonide, Alosetron, Imodium, and Pepto for now until starting Entyvio. Pt to keep record of bowel movements - how many and consistency Follow up in 2 months Feb, Fecal incontinence (ICD-10 - R15.9) [facility] Other 11-28-2022 Evaluation note* Encounter Date Diagnosis [...] Pantoprazole as prescribed Okay to stop Sucralfate [facility] Other 09-25-2022 NoteOPERATIVE NOTE OPERATION DATE: 11/04/2021 [...] was taken to PACU in good condition.[facility] 03-27-2021 Evaluation note* Encounter Date Diagnosis Assessment Notes Treatment Notes Treatment Clinical Notes Mar, Microscopic colitis, unspecified microscopic colitis type (ICD-10 - K52.839) INCREASE COLESTIPOL TO 4 TABS AT LUNCHTIME DAILY IF NOT IMPROVED ON HIGHER DOSE PT TO CALL ON 03/31 FOR ALTERNATIVE PLAN Mar, Irritable bowel syndrome with diarrhea (ICD-10 - K58.0) [facility] Other 12-20-2021 Evaluation note* Encounter Date Diagnosis Assessment Notes Treatment Notes Treatment Clinical Notes Jan, Microscopic colitis, unspecified microscopic colitis type (ICD-10 - K52.839) START COLESIPOL 2 PO DAILY CONTINUE BUDESONIDE WITHOUT CHANGE 3 PO Q AM AND MAYBE CONSIDERING STOP THIS IF COLESTIPOL IS WORKING ENOUGH TO CONTROL HER SYMPTOMS [facility] Other 12-20-2021 Evaluation note* Encounter Date Diagnosis Assessment Notes Treatment Notes Treatment Clinical Notes Jan, Microscopic colitis, unspecified microscopic colitis type (ICD-10 - K52.839) [employer] Other Evaluation + Plan note No data available for this section [facility] evaluation + Plan note Future Appointments Appointment Date:10/27/2022 01:00:00 PM Scheduled Provider:MALATHI VIEIRA PA-C Location:[facility] Appointment Type:URO Office Visit [facility] Evaluation + Plan note Future Appointments Appointment Date:12/29/2022 01:00:00 PM Scheduled Provider:MALATHI VIEIRA PA-C Location:[facility] Appointment Type:URO Office Visit [facility] evaluation + Plan note Future Appointments Appointment Date:06/15/2023 02:00:00 PM Scheduled Provider:MALATHI VIEIRA PA-C Location:[facility] Appointment Type:URO Office Visit [facility] evaluation + Plan note Future Appointments Appointment Date:01/30/2023 10:30:00 AM Scheduled Provider: Location:[facility] Appointment Type:ASU IV Antibiotic (FT) Appointment Date:01/31/2023 10:30:00 AM Scheduled Provider: [facility] Appointment Type:ASU IV Antibiotic (FT) Appointment Date:02/01/2023 10:30:00 AM Scheduled Provider: Location:[facility] Appointment Type:ASU IV Antibiotic (FT) Appointment Date:02/02/2023 10:30:00 AM Scheduled Provider: [facility] Appointment Type:ASU IV Antibiotic (FT) Appointment Date:02/03/2023 10:30:00 AM Scheduled Provider: Location:[facility] Appointment Type:ASU IV Antibiotic (FT) Appointment Date:02/04/2023 10:30:00 AM Scheduled Provider: [facility] Appointment Type:ASU IV Antibiotic (FT) Appointment Date:06/15/2023 02:00:00 PM Scheduled Provider:MALATHI VIEIRA PA-C Location:[facility] Appointment Type:URO [facility] [employer] [employer] Other Evaluation noteNo assessment information available [facility] Work Phone: Evaluation note* Diagnosis Onset Date Resolution Status Recurrent Clostridioides difficile diarrhea acute [facility] Work Phone: Evaluation note* Diagnosis Onset Date Resolution Status Recurrent Clostridioides difficile diarrhea acute Diarrhea acute Microscopic colitis acute Recurrent Clostridioides difficile diarrhea acute Recurrent UTI acute [facility] Work Phone: Evaluation note* Diagnosis Trochanteric bursitis of left hip- Primary Primary osteoarthritis of left hip History of left hip replacement documented in this encounter [facility] HealthcareEvaluation note* Diagnosis Critical limb ischemia [...] rest pain (CMS-HCC) documented in [facility] System[facility]* Diagnosis Primary osteoarthritis of left knee- Primary Left knee pain, unspecified chronicity Olecranon bursitis, right elbow documented in this encounter [facility] HealthcareEvaluation note* Diagnosis PAD (peripheral artery disease) (CMS-HCC)- Primary Unspecified peripheral vascular disease [facility] Diagnosis 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 ulcer of right leg (CMS-HCC) [facility] Diagnosis 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 ulcer of right leg (CMS-HCC) 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 ulcer of ankle, right (CMS-HCC) Critical limb ischemia of both lower extremities with rest pain (CMS-HCC) documented in this encounter [facility] SystemEvaluation note* Diagnosis Critical limb ischemia of [...] therapeutic drug monitoring documented in this encounter [facility] SystemEvaluation note* Diagnosis Critical limb ischemia of [...] venous (peripheral) insufficiency documented in this encounter [facility] SystemEvaluation note* Diagnosis Critical limb ischemia of [...] with rest pain (CMS-HCC)- Primary 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, unspecified ulceration site (CMS-HCC) PAD (peripheral artery disease) (CMS-HCC) Unspecified peripheral vascular disease Encounter for therapeutic drug monitoring documented in this encounter [facility] SystemEvaluation note* Diagnosis Critical limb ischemia of [...] venous (peripheral) insufficiency documented in this encounter [facility] SystemEvaluation note* Diagnosis Critical limb ischemia of [...] gangrene (CMS-HCC)- Primary [facility] - [facility]* Type Description Date Medical History HTN Medical History hyperlipidemia Medical History microscopic colitis Surgical History T&A Surgical History Quad by-pass Surgical History total hysterectomy Surgical History gall bladder Surgical History Cataracts Surgical History Right Knee Scope Surgical History Sphincterectomy Surgical History Left Rotator Scope Surgical History Hernia Repair 03/24/2012 Hospitalization History See Surgical Hx [facility] Other History general Narrative - Reported* Type [...] See Surgical Hx Hospitalization History [facility] 12/2022 [facility] Other History general Narrative - Reported* Type [...] Hospitalization History See Surgical Hx Hospitalization History [facility] 12/2022 [facility] Other History general Narrative - Reported* Type [...] Hospitalization History See Surgical Hx Hospitalization History [facility] 12/2022 [facility] Other [facility] general Narrative - Reported* Type Description Date [...] Hospitalization History See Surgical Hx Hospitalization History [facility] 12/2022 [facility] Other Hospital Discharge instructions No data available for this [facility] Attachments The following attachments cannot be sent through Care Everywhere. * Peripheral Vascular (Arterial) Disease Discharge Instructions (Faroese) * Atherectomy - Angioplasty of a Noncoronary Vessel (Faroese) * Gangrene Discharge Instructions (Faroese) [facility]Not [facility] System[facility]ructionsNot on file documented in [facility] SystemInstructionsNot on file documented in [facility] SystemInstructionsNot on file documented in this [facility] SystemInstructionsNot on file documented in [facility] SystemInstructionsNot on file documented in this [facility]Pro[facility] SystemInstructionsNot on file documented in this [facility]Pro[facility] SystemInstructionsNot on file documented in this encounterPro[facility] SystemInstructionsNot on file documented in this encounterPro[facility] Health SystemInstructionsNot on file documented in this encounterProMedica Health SystemInstructionsNot on file documented in this encounterProMedica Health SystemProgress note No data available for this section [facility] reason for referral (narrative)* Misc (Routine) - Pending Review Specialty Diagnoses / Procedures Referred By Contac t Referred To Contact Procedures Hygiene Aroldo Burns APRN-CNP [employer] [employer] [address] [place] [address] Phone: tel: fax: Referral ID Status Reason Start Date Expiration Date V isits Requested Visits Authorized [id number] Pending Review 01/07/2024 01/06/2025 1 1 * Misc (Routine) - Pending Review Specialty Diagnoses / Procedures Referred By Contac t Referred To Contact Procedures Wound care (specify) Aroldo Burns APRN-CNP [facility] [address] [place] [address] Phone: tel: fax: Referral ID Status Reason Start Date Expiration Date V isits Requested Visits Authorized [id number] Pending Review 01/07/2024 01/06/2025 1 1 * Misc (Routine) - Pending Review Specialty Diagnoses / Procedures Referred By Contac t Referred To Contact Procedures Wound care (specify) Aroldo Burns APRN-CNP [facility] [address] [place] [address] Phone: tel: fax: Referral ID Status Reason Start Date Expiration Date V isits Requested Visits Authorized [id number] Pending Review 01/07/2024 01/06/2025 1 1 [facility] for visit Narrative* Auth/Cert (Routine) Specialty Diagnoses / Procedures Referred By Contac t Referred To Contact Diagnoses 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, ARTERIAL OCCLUSIVE DISEASE Procedures IA REVASCULARIZATION ILIAC ARTERY ANGIOP 1ST VSL ENDARTERECTOMY FEMORAL (ILIOFEMORAL ENDARTERECTOMY) ANGIOPLASTY ILIAC BYPASS ARTERY FEMORAL POPLITEAL Deuce Kirkland MD [address], [place] [address] Phone: tel: fax: Referral ID Status Reason Start Date Expiration Date Visits Re quested Visits Authorized [id number] 1 1 [facility] Summary Purpose Family History Relationship Condition [...] Documents on File Type Date Recorded Patient 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 Experience Coordinator Expl anation Living Will 11/05/2023 11:42 AM Date Activated Date Inactivated Comments 11/19/2023 7:37 AM 11/19/2023 2:11 PM Healthcare Agents on File Name Relationship Healthcare Agent Relationship Communication Joanna Linkenhoker Daughter First Charlie chahal Health Care Agent [email or web address] Documents on File Type Date Recorded 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 Healthcare Agents on File Name Relationship Healthcare Agent Relationship Communication Joanna Linkenhoker Daughter First Alterna te Health Care Agent [email or web address] Healthcare Agents on File Name Relationship Healthcare Agent Relationship Communication Joanna Linkenhoker Daughter First Charlie te Health Care Agent [email or web address] Healthcare Agents on File Name Relationship Healthcare Agent Relationship Communication Joanna Linkenhoker Daughter First Charlie te Health Care Agent [email or web address] Activated Date Inactivated Comments 11/19/2023 7:37 AM 11/19/2023 2:11 PM Healthcare Agents on File Name Relationship Healthcare Agent Relationship Communication Jaonna Linkenhoker Daughter First Charlie te Health Care Agent [email or web address] Healthcare Agents on File Name Relationship Healthcare Agent Relationship Communication Joanna Linkenhoker Daughter First Charlie te Health Care Agent [email or web address] Healthcare Agents on File Name Relationship Healthcare Agent Relationship Communication Joanna Linkenhoker Daughter First Charlie te Health Care Agent [email or web address] Agents on File Name Relationship Healthcare Agent Relationship Communication Joanna Linkenhoker Daughter First Charlie te Health Care Agent [email or web address] Agents on File Name Relationship Healthcare Agent Relationship Communication Joanna Linkenhoker Daughter First Charlie te Health Care Agent [email or web address] Agents on File Name Relationship Healthcare Agent Relationship Communication Joanna Linkenhoker Daughter First Charlie te Health Care Agent [email or web address] Advance Directive Response Recorded Date/ Time Advance Directives No April 13 9:53am Hospital Course Note [facility] Clinical Discharge Summary PERSON INFORMATION Name DELICIA HSU Age 83 Years 1935 Sex FEMALE Language Faroese PCP Lisandro KRISHNAN, Gypsy Olvera Marital Status Med Service Med/Surg Acct# Arrival 09/25/2019 06:52:00 Visit Reason SURGERY - LEFT TOTAL HIP Acuity LOS Address: [address] [place] [address] Comment: PROVIDER INFORMATION VITALS INFORMATION Vital Sign [...] Date Amb Documentation December 27, 2023 8:54am alf visit January 10, 2024 1 1:59pm 4 month follow up February 21, 2024 1 :24pm Custodial follow up March 23 1:46pm Reason for Visit Admit Date Microscopic colitis February 21, 2024 1 :24pm Chief Complaint Admit Date alf visit January 10, 2024 1 1:59pm 4 month follow up February 21, 2024 1 :24pm Custodial follow up March 23 1:46pm Reason for Visit Admit Date Microscopic colitis February 21, 2024 1 :24pm Arterial vascular disease March 23, 2024 1:46pm Hyperlipidemia March 23, 2024 1:46pm Hypertension March 23, 2024 1:46pm Chief Complaint Admit Date 4 month follow up February 21, 2024 1 :24pm Custodial follow up March 23 1:46pm Amb Documentation April 10, 2024 8:54 am [facility], UTI April 13, 2024 2:36 pm Reason for Visit Admit Date Microscopic colitis February 21, 2024 1 :24pm Arterial vascular disease March 23, 2024 1:46pm Hyperlipidemia March 23, 2024 1:46pm Hypertension March 23, 2024 1:46pm Recurrent UTI April 13, 2024 2:36 pm Reason for Referral Specialty Diagnoses / Procedures Referred By Contac t Referred To Contact Diagnoses 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 ([facility]) Venous ulcer of right leg ([facility]) Procedures Vas venous duplex insufficiency lwr bi Deuce Kirkland MD [address], [address] [address] Referral ID Status Reason Start Date Expiration Date V isits Requested Visits Authorized [id number] Pending Review 10/14/2023 10/13/2024 1 1 Specialty Diagnoses / Procedures Referred By Contac t Referred To Contact Diagnoses PAD (peripheral artery disease) ([facility]) Procedures Vas art doppler lwr bilat mult lev/PVR Deuce Kirkland MD [address], [address] [address] Referral ID Status Reason Start Date Expiration Date V isits Requested Visits Authorized [id number] Pending Review 06/17/2023 06/16/2024 1 1 Reason DUPLICATE [place] office - frequent UTIs. Diagnosis 1 Frequent UTI (N39.0) Referral Organization [facility] Medical Jeny tyson Referring Provider First Name Gypsy Referring Provider Last Name Lisandro Referring Provider Specialty Family [facility] cine Referred Organization [facility] Referred Provider Beau Hernandez Referred Address [address],[place],[address] Referred Provider Specialty Urology Referral Priority Routine General Notes Tatyana Bojorquez 01:56:52 PM >received today Tatyana Bojorquez 05/14/2022 02:02:41 PM >attachments made, notes locked, referral faxed Tatyana Bojorquez 05/14/2022 03:25:50 PM >DUPLICATE REFERRAL Reason *FU 04/28 [place] office - recurrent UTIs. Diagnosis 1 Recurrent UTI (N39.0 ) Referral Organization [facility] Referring Provider First Name Gypsy Referring Provider Last Name Lisandro Referring Provider Specialty Family [facility] Referred Organization [facility] Referred Provider Gerson Juárez Referred Address [address],[place],[address] Referred Provider Specialty Urology Referral Priority Routine [...] and content) DATE CREATED AUTHOR 09/17/2018 [facility] DATE CREATED AUTHOR AUTHOR'S ORGANIZ ATION 10/30/2019 [facility] DATE CREATED AUTHOR AUTHOR'S ORGANIZ ATION 05/31/2022 [facility] DATE CREATED AUTHOR AUTHOR'S ORGANIZ ATION 07/29/2023 [facility] DATE CREATED AUTHOR AUTHOR'S ORGANIZ ATION 01/02/2024 [facility] DATE CREATED AUTHOR AUTHOR'S ORGANIZ ATION 01/21/2024 [facility] DATE CREATED AUTHOR AUTHOR'S ORGANIZ ATION 02/23/2024 [facility] DATE CREATED AUTHOR AUTHOR'S ORGANIZ ATION 03/04/2024 [facility] DATE CREATED AUTHOR AUTHOR'S ORGANIZ ATION 03/04/2024 [facility] DATE CREATED AUTHOR AUTHOR'S ORGANIZ ATION 04/12/2024 [facility] REASON FOR VISIT (unrecogniz ed section and content) Reason Comments Follow-up Reason Comments art doppler lwr bilat mult l ev/PVR completed on 12/21/23 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) Reason Comments Pain Reason Comments PAD Reason Comments follow up to go over vascula r testing that was completed 2 Ulceration to right ankle 8/ Reason Comments Acute deep vein thrombosis o [...] 2024 Team Status: Inactive Member Role Status Valdemar Mcmahon MD Primary Care Provide r, Attending Provider Active Start: March 23, 2024 End: March 23, 2024 Team Status: Active Member Role Status Dates Gypsy Mcmahon MD Primary Care Provide r, Attending Provider Active Start: April 07, 2024 Team Status: Active Member Role Status Dates Gypsy Mcmahon MD Primary Care Provider Active Start: April 08, 2024 Clementina Madera MD Attending Provider Active Sta rt: April 08, 2024 Team Status: Active Member Role Status Dates Monie Boyer CMA Attending Provider Active Start: April 10, 2024 Team Status: Inactive Member Role Status Dates Gypsy Mcmahon MD Primary Care Provide r, Attending Provider Active Start: April 13, 2024 End: April 13, 2024 Team Status: Active Member Role Status Dates [...] 2023 End: May 28, 2023 Monie Wallace , DO Attending Provider [...] Member Role Status Dates Malathi Velázquez APRN PHYSICIAN RELATIONS MANAGER-C Attending Provider Act jamar Start: December [...] February 26, 2023 End: February 26, 2023 Slab Inspector Relationship Specialty Start Date End Date Gypsy Mcmahon MD [address] [place] [address] [phone] PCP - General Family Medicine 07/18/22 Slab Inspector Relationship Specialty [place] [address] [place] [address] [phone] PCP - General Family Medicine 07/18/22 Slab Inspector Relationship Specialty Start Date End Date Gypsy Mcmahon MD [address] [place] [phone] PCP - General Family Medicine 04/10/22 Slab Inspector Relationship Specialty [place] [address] [place] [address] [phone] PCP - General Family Medicine 07/18/22 Slab Inspector Relationship Specialty Start Date End Date Gypsy Mcmahon MD [address] [place], [place] [phone] PCP - General Family Medicine 07/18/22 Slab Inspector Relationship Specialty Start Date End Date Gypsy Mcmahon MD [address] [place], [place] [phone] PCP - General Family Medicine 04/10/22 Team [...] March 23, 2024 End: March 23, 2024 Slab Inspector Relationship Specialty Start Date End Date Gypsy Mcmahon MD [address] [place], [place] [phone] PCP - General Family Medicine 04/10/22 Slab Inspector Relationship Specialty Start Date End Date Gypsy Mcmahon MD [address] [place] [address] [phone] PCP - General Family Medicine 04/10/22 Slab Inspector Relationship Specialty Start Date End Date Gypys Mcmahon MD [address] [place] [address] [phone] PCP - General Family Medicine 04/10/22 Slab Inspector Relationship Specialty Start Date End Date Gypsy Mcmahon MD [address] [place] [phone] PCP - General Family Medicine 04/10/22 Slab Inspector Relationship Specialty Start Date End Date Gypsy Mcmahon MD [address] [place] [phone] PCP - General Family Medicine 04/10/22 Slab Inspector Relationship Specialty Start Date End Date Gypsy Mcmahon MD [address] [place] [phone] PCP - General Family Medicine 04/10/22 Slab Inspector Relationship Specialty Start Date End Date Gypsy Mcmahon MD [address] [place] [phone] PCP - General Family Medicine 04/10/22 Slab Inspector Relationship Specialty Start Date End Date Gypsy Mcmahon MD [address] [place] [phone] PCP - General Family Medicine 04/10/22 Slab Inspector Relationship Specialty Start Date End Date Gypsy Mcmahon MD [address] [place] [phone] PCP - General Family Medicine 04/10/22 Slab Inspector Relationship Specialty Start Date End Date Gypsy Mcmahon MD [address] [place] [phone] PCP - General Family Medicine 04/10/22 Slab Inspector Relationship Specialty Start Date End Date Gypsy Mcmahon MD [address] [place] [phone] PCP - General Family Medicine 04/10/22 Team Status: Active Member Role Status Dates Gypsy Mcmahon MD Primary Care Provide r, Attending Provider Active Start: April 07, 2024 Team Status: Active Member Role Status Dates Gypsy Mcmahon MD Primary Care Provider Active Start: April 08, 2024 Clementina Madera MD Attending Provider Active Sta rt: April 08, 2024 Team Status: Active Member Role Status Dates Monie Boyer CMA Attending Provider Active Start: April 10, 2024 Team Status: Inactive Member Role Status Dates Gypsy Mcmahon MD Primary Care Provide r, Attending Provider Active Start: April 13, 2024 End: April 13, 2024 Goals (unrecognized section and content) Goals may be documented in a n alternate section Scheduled Active and Recently Administ ered Medications (unrecognized section and content) Medication Order 01/05/2024 01/06/2024 01/07/2024 acetaminophen (TYLENOL EXTRA STRENGTH) tablet 1,000 mg 1,000 mg, oral, Every 8 hours, First dose (after last modification) on Akiko 01/06/24 at 1730, For 3 days 1754 (Given - Provider: Matilda Wilson, KAYLYNN)2314 (Given - Provider: Laquita Argueta, KAYLYNN) 0640 (Given - Provider: Mi Saldana RN)1459 (Given - Provider: Eleanor Soto, RN)2300 (Due) acetic acid 0.25 % irrigation solution 20 mL 20 mL, irrigation, 2 times daily, First dose on 01/03/24 at 0915, For irrigation only. Look-alike/sound-alike medication - verify indication for use. 0900 (Not Given - Provider: Monie Brown RN - Reason: Patient/family refused)1934 (Given - Provider: Monie Brown RN)2100 (Canceled Entry - Provider: Laquita Argueta, KAYLYNN) 0844 (Given - Provider: Matilda Wilson RN)1999 (Given - Provider: Laquita Argueta, KAYLYNN) 1327 (Given - Provider: Eleanor Soto, RN)2100 (Due) cefEPime (MAXIPIME) 1,000 mg in sodium [...] Minutes, Every 24 hours, First dose on Wed01/06/24 at 1045, ADD-VANTAGE/MBP- Discard 8 hours after [...] Wilson RN) 0816 (Given - Provider: Eleanor Soto, KAYLYNN) docusate sodium (COLACE) capsule 100 mg 100 [...] days 2000 (Given - Provider: Laquita Argueta RN)2200 (Canceled [...] tablet can be taken orally, Indication: GERD 0 (Given - Provider: Laquita Argueta RN) 0817 (Given - Provider: Eleanor Soto, KAYLYNN) polyethylene glycol (GLYCOLAX) packet 17 g 17 [...] times daily with meals, First dose on 01/03/24 at 1100, Take/Give with food., Indication: Chronic Coronary Artery Disease/Peripheral Artery Disease 0838 (Given - Provider: Monie Brown RN)1703 (Given - Provider: Monie Brown RN) 0801 (Given - Provider: Matilda Wilson RN)1727 (Given - Provider: Matilda Wilson, KAYLYNN) 0817 (Given - Provider: Eleanor Soto, KAYLYNN)1704 [...] - Provider: Laquita Argueta RN)0610 (Return to Cabinet - Provider: Laquita Argueta RN)0838 (Given - [...] Look-alike/sound-alike medication - verify indication for use. 1947 (Given - Provider: Laquita Argueta RN) magnesium [...] RN) 1725 (See Alternative - Provider: Matilda Wilson RN)2314 (See Alternative - Provider: Laquita Argueta RN) 0315 (Given - Provider: Mi Saldana RN)1148 (Given - Provider: Eleanor Soto RN) oxyCODONE (ROXICODONE) immediate release tablet 5 mg 5 mg, oral, Every 4 hours PRN, moderate pain - pain scale 4-6, Starting on 01/02/24 at 1349, Look-alike/sound-alike medication - verify indication for use. Immediate release. 0620 (Given - Provider: Laquita Argueta, RN)1316 (See Alternative - Provider: Monie Brown, RN)1703 (See Alternative - Provider: Monie Brown, KAYLYNN) 1725 (Not Given - Provider: Matilda Wilson RN - Reason: Other - Comment: orders updated.)2314 (Given - Provider: Laquita Argueta, RN) 0315 (See Alternative - Provider: Mi Saldana RN)1148 (See Alternative - Provider: Eleanor Soto RN) potassium chloride (K-TAB,KLOR-CON) CR tablet 20-50 mEq(Linked [...] level 0.45 to 0.5 mmol/L, Starting on Wed01/01/24 at 1858, Use premix solution. Default to [...] BE BASED ON THE PRIMARY CLINICAL RECORDS. [employer]. provides no warranty or guarantee of the accuracy or completeness of information in this document.
[2024-04-24] MEDS: LACTATED RINGER'S SOLUTION 1,000 ML 50 ML IV (19:55)
[2024-04-24] MEDS: GABAPENTIN 100 MG CAPSULE PO (19:55)
[2024-04-24] MEDS: MORPHINE SULFATE 2 MG/ML SYRINGE IV (20:12)
[2024-04-24] MEDS: [UNRECOGNIZED DRUG - OTHER] 14 CAP PO (21:12)
[2024-04-24] MEDS: ATORVASTATIN CALCIUM 20 MG TABLET PO (21:12)
[2024-04-25] VITALS (21 sets, daily range): BP systolic 135–176; BP diastolic 51–70; PULSE 55–212; TEMP 36.8–37.2; O2SAT 90–97
[2024-04-25] MEDS: MORPHINE SULFATE 2 MG/ML SYRINGE IV ×2 (01:24→08:53)
[2024-04-25] MEDS: CIPROFLOXACIN IN 5 % DEXTROSE 400 MG/200 ML PREMIX 200 MG IV ×2 (05:10→16:52)
[2024-04-25 05:27] LABS: Basophils Percent Auto 0.3 % (0.2-2.0); Eosinophils Absolute Auto 0.1 10^3/uL (0.0-0.7); Eosinophils Percent Auto 0.4 % (0.9-7.0); Hematocrit 34.7 % (36.0-48.0); Hemoglobin 11.3 g/dL (12.0-16.0); Immature Granulocytes Abs Auto 0.03 10^3/uL (0.00-0.03); Immature Granulocytes Pct Auto 0.2 % (0.0-0.5); Lymphocytes Absolute Auto 0.8 10^3/uL (1.2-3.8); Lymphocytes Percent Auto 6.6 % (20.5-60.0); Mean Corpuscular HGB Conc 32.6 g/dL (29.9-35.2); Mean Corpuscular Hemoglobin 29.7 pg (26.7-34.0); Mean Corpuscular Volume 91.1 fL (81.0-99.0); Mean Platelet Volume 8.8 fL (9.5-13.5); Monocytes Absolute Auto 1.2 10^3/uL (0.3-0.8); Monocytes Percent Auto 9.7 % (1.7-12.0); Neutrophils Absolute Auto 10.4 10^3/uL (1.4-6.5); Neutrophils Percent Auto 82.8 % (43.0-75.0); Platelet Count 365 10^3/uL (150-450); Red Blood Count 3.81 10^6/uL (4.20-5.40); Red Cell Distribution Width 14.4 % (11.0-15.0); White Blood Count 12.6 10^3/uL (4.0-11.0)
[2024-04-25 05:45] LABS: Alanine Aminotransferase 15 U/L (14-59); Albumin Globulin Ratio 0.9; Alkaline Phosphatase 31 U/L (46-116); Anion Gap 12.4; Aspartate Amino Transferase 17 U/L (15-37); BUN Creatinine Ratio 16.4; Bilirubin Total 0.8 mg/dL (0.2-1.0); Carbon Dioxide 27.2 mmol/L (21.0-32.0); Chloride 102 mmol/L (98-107); Estimated GFR (African America 45 (>=60 mL/min/1.73m^2); Estimated GFR (Non-African Ame 37 (>=60 mL/min/1.73m^2); Globulin 3.4 g/dL; Glucose 95 mg/dL (74-106); Potassium 4.6 mmol/L (3.5-5.1); Sodium 137 mmol/L (136-145); Total Protein 6.4 g/dL (6.4-8.2)
[2024-04-25 05:55] LABS: Calcium 9.3 mg/dL (8.5-10.1)
--- NOTE | 2024-04-25 08:17 | PM.HP ---
HPI H&P: HPI History of Present Illness Chief complaint: ABDOMINAL PAIN, HYPERTENSION UTI ENTEROTIS Narrative: This is an 88-year-old female patient with a past medical history of recurrent UTIs, IBD following with GI as an outpatient and chronic intermittent diarrhea, CAD status post CABG x5, and GERD; who presented to the ED last night with epigastric abdominal pain, nausea and vomiting. She denied diarrhea, fever or chills. This morning she notes pain is improved but still present in the epigastric region and she did require some Morphine today. She has been tolerating clear liquid diet. She has been afebrile. ER findings: WBC's 15.2, HB 11.3, Cr 1.39, lipase 18, UA positive (recent culture positive for Klebsiella pneumoniae); CT of the Ab/pelvis showed: moderate enteritis. Patient was given GI cocktail and Fentanyl for pain, and Cipro for UTI and admitted to the hospitalist service for further plan of care. Opioid HPI Opioid Management Most Recent Pain and Opioid Data: Last Pain Scale 2 04/25/24 10:00 04/25/24 Last Pain Assessment 04/25/24 12:00 Last MAR Pain Assessment 04/25/24 09:53 Last ORT Total Score 0 04/24/24 18:17 04/24/24 Last ORT Risk Category Low Risk 04/24/24 18:17 04/24/24 Review of Systems ROS Narrative ROS: a complete review of systems were reviewed with patient and are positive as below or listed in History of Chief Complaint. General: no fever, chills, night sweats Head: no headache, trauma, visual changes, nausea or vomiting Skin: no reported rashes, itching or sores Eyes: no blurriness of vision Ears: no reported hearing loss, vertigo, earache, or tinnitus Throat: no sore throat, hoarseness, swelling of neck, or tongue pain Heart: no chest pain Lungs: no shortness of breath or cough GI: no diarrhea but vomiting/nausea and abdominal pain Urinary: no urinary urgency, frequency or pain Neuro: no numbness or tingling HEM: no bleeding issues or bruising ENDO: no thyroid problems Psych: no anxiety or depression PFSH [facility] Medical History (Updated 04/25/24 @ 08:27 by Jeanette Moseley DO) Cataracts, bilateral ?H26.9 - Unspecified cataract (ICD-10) HTN (hypertension) ?I10 - Essential (primary) hypertension (ICD-10) Hypomagnesemia ?E83.42 - Hypomagnesemia (ICD-10) Peripheral edema ?R60.0 - Localized edema (ICD-10) GERD (gastroesophageal reflux disease) ?K21.9 - Gastro-esophageal reflux disease without esophagitis (ICD-10) IBD (inflammatory bowel disease) ?K52.9 - Noninfective gastroenteritis and colitis, unspecified (ICD-10) CAD (coronary artery disease) ?I25.10 - Atherosclerotic heart disease of [place] coronary artery without angina pectoris (ICD-10) 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 (ICD-10) Cholecystectomy planned Cataract ?H26.9 - Unspecified cataract (ICD-10) Acute hypokalemia ?E87.6 - Hypokalemia (ICD-10) Clostridium difficile colitis ?A04.72 - Enterocolitis due to Clostridium difficile, not specified as recurrent (ICD-10) Acute dehydration ?E86.0 - Dehydration (ICD-10) Acute pain of right shoulder ?M25.511 - Pain in right shoulder (ICD-10) Acute hyponatremia ?E87.1 - Hypo-osmolality and hyponatremia (ICD-10) Urinary tract infection ?N39.0 - Urinary tract infection, site not specified (ICD-10) Altered mental status ?R41.82 - Altered mental status, unspecified (ICD-10) Surgical History Hx of cholecystectomy ?Z90.49 - Acquired absence of other specified parts of digestive tract (ICD-10) History of ERCP ?Z98.890 - Other specified postprocedural states (ICD-10) S/P femoral-femoral bypass surgery ?Z95.828 - Presence of other vascular implants and grafts (ICD-10) History of hysterectomy ?Z90.710 - Acquired absence of both cervix and uterus (ICD-10) 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 - Presence of aortocoronary bypass graft (ICD-10) History of left hip replacement ?Z96.642 - Presence of left artificial hip joint (ICD-10) S/P CABG x 5 ?Z95.1 - Presence of aortocoronary bypass graft (ICD-10) Family History Father Family history of CHF (congestive heart failure) Family history of hypertension Brother Family history of cancer Sister Family history of cancer Family history of myocardial infarction Mother Family history of hypertension Family history of stroke Social History Within the past year, how often did you have a drink containing alcohol: monthly or less Within the past year, how many standard drinks containing alcohol did you have on a typical day: 1 or 2 Within the past year, how often did you have six or more drinks on one occasion: never Total score: 0 Score interpretation: A score less than 3 is consistent with normal alcohol consumption. Smoking status: Never smoker Non-prescribed substance use: denies use Highest level of school completed/degree received: 10th grade Are you now , , , , never or living with a partner: In a typical week, how many times do you talk on the telephone with family, friends, or neighbors: twice per week How often do you get together with friends or relatives: twice per week How often do you attend gnosticist or jehovah's witness services: never Do you belong to any clubs or organizations such as gnosticist groups unions, fraternal or athletic groups, or school groups: no Total score: 1 Score interpretation: A score of less than or equal to 1 indicates the most socially isolated. Little interest or pleasure in doing things: not at all Feeling down, depressed, or hopeless: not at all Meds Home Medications and Allergies Home Medications ?Medication ?Instructions ?Recorded ?Confirmed ?Type simvastatin 40 mg tablet 40 mg PO DAILY 09/27/22 04/24/24 History acetaminophen 500 mg tablet 1,000 mg PO Q6H PRN pain 12/29/22 04/24/24 History budesonide 3 mg 3 mg PO DAILY 12/29/22 04/24/24 History capsule,delayed,extended release cholecalciferol (vitamin D3) 50 50 mcg PO DAILY 12/29/22 04/24/24 History mcg (2,000 unit) tablet (D3 DOTS) loperamide 2 mg capsule (Imodium 2 mg PO Q4H 12/29/22 04/24/24 History A-D) melatonin 5 mg tablet 5 mg PO DAILY 12/29/22 04/24/24 History zinc gluconate 50 mg tablet 50 mg PO DAILY 12/29/22 04/24/24 History Lactobacillus acidophilus, 1 packet PO BID 30 days #60 ea 01/01/23 04/24/24 Rx bulgaricus 100 million cell granules packet (Floranex) pantoprazole 20 mg tablet,delayed 20 mg PO DAILY 07/25/23 04/24/24 History release bismuth subsalicylate 262 mg 3 tab PO DAILY 04/07/24 04/24/24 History chewable tablet (Bismuth) gabapentin 100 mg capsule 100 mg PO Q12H 04/07/24 04/24/24 History multivitamin (Daily Multi-Vitamin 1 tab PO DAILY 04/07/24 04/24/24 History tablet) nebivolol 10 mg tablet 10 mg PO DAILY 04/07/24 04/24/24 History clopidogrel 75 mg tablet 75 mg PO DAILY 04/25/24 04/25/24 History spironolactone 50 mg tablet 50 mg PO DAILY 04/25/24 04/25/24 History Allergies Allergy/AdvReac Type Severity Reaction Status Date / Time promethazine (From Phenergan) Allergy Severe Agitated Verified 04/07/24 23:18 levofloxacin AdvReac Severe Drowsy Verified 04/07/24 23:18 Penicillins AdvReac Severe Unknown Verified 04/07/24 23:18 Antihistamines - Alkylamine AdvReac Intermediate Unknown Verified 04/07/24 23:18 Exam Narrative Exam Narrative: General: Patient is alert, and oriented to person, place and time with normal affect, proper hygiene Skin: no visible rashes, or ulcers Head: atraumatic, acephalic Eyes: PERRLA, no nystagmus present, conjunctiva clear, no scleral icterus Ears: normal Tympanic Membrane, normal gross auditory acuity Nose: symmetric, no discharge, no maxillary or frontal sinus tenderness Mouth/Throat: no erythema, exudate, or tonsillar enlargement, normal dentition Neck: no masses palpated, normal thyroid, no JVD or audible carotid bruits Heart: Normal rate and rhythm, no murmurs/rubs/gallops Lungs: no audible wheezes, crackles and normal breath sounds all lung chavez Abdomen: Normal audible bowel sounds, pain with palpation of the epigastric region Musculoskeletal: no swelling bilateral lower extremities Neuro: CN II-X grossly intact Constitutional Vital Signs, click to edit/add: Last Vital Signs Temp 98.2 F 04/25/24 07:58 Pulse 59 L 04/25/24 07:58 Resp 18 04/25/24 07:58 BP 175/69 H 04/25/24 07:58 Pulse Ox 93 L 04/25/24 07:58 O2 Del Method Room Air 04/25/24 07:58 O2 Flow Rate 1 04/25/24 04:51 Results Labs Labs: Short CBC 04/24/24 04/25/24 Range/Units 13:29 05:20 WBC 15.2 H 12.6 H (4.0-11.0) 10^3/uL Hgb 12.1 11.3 L (12.0-16.0) g/dL Hct 38.0 34.7 L (36.0-48.0) % Plt Count 430 365 (150-450) 10^3/uL BMP 04/24/24 04/25/24 13:29 05:20 Sodium 138 137 Potassium 4.4 4.6 Chloride 101 102 Carbon Dioxide 28.3 27.2 BUN 26.0 H 22.0 H Creatinine 1.39 H 1.34 H Glucose 115 H 95 Calcium 9.9 9.3 Liver Function 04/24/24 04/25/24 Range/Units 13:29 05:20 Total Bilirubin 0.7 0.8 (0.2-1.0) mg/dL AST 19 17 (15-37) U/L ALT 14 15 (14-59) U/L Alkaline Phosphatase 37 L 31 L (46-116) U/L Albumin 3.5 3.0 L (3.4-5.0) g/dL Urine 04/24/24 Range/Units 15:24 Urine Color Lt. yellow (YELLOW) Urine Clarity Clear (CLEAR) Urine pH 5.5 (5.0-9.0) Ur Specific [place] 1.015 (1.005-1.025) Urine Protein Negative (NEG/TRACE) mg/dL Urine Glucose (UA) Negative (NEGATIVE) mg/dL Assessment and Plan Assessment and Plan (1) Acute UTI: Assessment and Plan: urine culture pending, but from 04/08/24 she grew Klebsiella Pneumoniae that was sensitive to the Cipro IV, continue this which will also help with the enteritis. (2) Enteritis: Assessment and Plan: Patient was placed on clear liquid diet and proved pain control, zofran as needed. Patient does have history of C diff. If able to give stool sample, will check again for this. WBC's elevated at 15.2, patient has been afebrile. (3) HTN (hypertension): Assessment and Plan: continue nebivolol, PRN hydralazine. Patient with bradycardia at baseline. Qualifiers: Hypertension type: primary hypertension Qualified Code(s): I10 - Essential (primary) hypertension (4) GERD (gastroesophageal reflux disease): Assessment and Plan: placed on IV protonix. H&H stable. Qualifiers: Esophagitis presence: esophagitis presence not specified Qualified Code(s): K21.9 - Gastro-esophageal reflux disease without esophagitis (5) IBD (inflammatory bowel disease): Assessment and Plan: does get imodium daily, probiotics (6) CAD (coronary artery disease): Assessment and Plan: continue statin Qualifiers: Associated angina: without angina Coronary Disease-Associated Artery/Lesion type: [place] artery [place] vs. transplanted heart: [place] heart Qualified Code(s): I25.10 - Atherosclerotic heart disease of [place] coronary artery without angina pectoris Plan Patient is a full code continue SCD's for DVT prophylaxis Patient was placed Observation status but made inpatient status today with continued pain and anorexia and is expected to cross 2 midnights
[2024-04-25] MEDS: ENOXAPARIN SODIUM 40 MG/0.4 ML SYRINGE SUBQ (08:52)
[2024-04-25] MEDS: PANTOPRAZOLE SODIUM 40 MG VIAL IV ×2 (08:53→21:16)
[2024-04-25] MEDS: BUDESONIDE 3 MG 3 EACH PO (08:53)
[2024-04-25] MEDS: GABAPENTIN 100 MG CAPSULE PO ×2 (08:53→21:03)
[2024-04-25] MEDS: NEBIVOLOL HCL 5 MG TABLET 10 MG PO (08:53)
--- NOTE | 2024-04-25 11:21 | CM.NOTE ---
Rounds made with Dr. Moseley, pt continues with epigastric and upper abdominal pain. No discharge today. Pt will change to inpatient status. Attempt to advance diet today if pt able to tolerate.
--- NOTE | 2024-04-25 14:12 | CM.NOTE ---
Spoke with Nilsa for update on pt. Pt is independent living at [place], will send updates on pt.
[2024-04-25] MEDS: ONDANSETRON PF 4 MG/2 ML VIAL IV (14:20)
--- NOTE | 2024-04-25 14:52 | DIETREC ---
Recommend 237 mL Ensure Original BID d/t inadequate meal intakes. [place] text to Dr. Jeanette Moseley.
[2024-04-25] MEDS: SUCRALFATE 1 GM TABLET PO ×2 (16:52→21:03)
[2024-04-25] MEDS: LACTATED RINGER'S SOLUTION 1,000 ML 50 ML IV (18:04)
[2024-04-25] MEDS: ENSURE ORIGINAL 237 ML BOTTLE PO (21:03)
[2024-04-25] MEDS: ATORVASTATIN CALCIUM 20 MG TABLET PO (21:03)
[2024-04-25] MEDS: FAMOTIDINE 20 MG TABLET PO (21:03)
[2024-04-26] VITALS (18 sets, daily range): BP systolic 124–156; BP diastolic 57–69; PULSE 60–74; TEMP 36.5–36.9; O2SAT 87–93
[2024-04-26] MEDS: MORPHINE SULFATE 2 MG/ML SYRINGE IV (03:54)
[2024-04-26] MEDS: ONDANSETRON PF 4 MG/2 ML VIAL IV (03:54)
[2024-04-26] MEDS: CIPROFLOXACIN IN 5 % DEXTROSE 400 MG/200 ML PREMIX 200 MG IV (04:01)
[2024-04-26] MEDS: ENOXAPARIN SODIUM 40 MG/0.4 ML SYRINGE SUBQ (08:41)
[2024-04-26] MEDS: BUDESONIDE 3 MG 3 EACH PO (08:42)
[2024-04-26] MEDS: FAMOTIDINE 20 MG TABLET PO (08:42)
[2024-04-26] MEDS: NEBIVOLOL HCL 5 MG TABLET 10 MG PO (08:42)
[2024-04-26] MEDS: GABAPENTIN 100 MG CAPSULE PO ×2 (08:42→21:15)
[2024-04-26] MEDS: SUCRALFATE 1 GM TABLET PO ×4 (08:42→21:15)
[2024-04-26] MEDS: PANTOPRAZOLE SODIUM 40 MG VIAL IV ×2 (08:42→21:15)
[2024-04-26] MEDS: SPIRONOLACTONE 25 MG TABLET 50 MG PO (08:42)
--- NOTE | 2024-04-26 08:52 | PM.PN ---
Progress Note: Subjective Subjective Interval history: This morning, patient is sitting up in the chair. Her nausea has improved. She reports belching but no flatulence. She has eaten toast which is staying down. Discussed that she sees Dr. Wallace GI at [facility] for microcytic colitis. She was recently started on Aspirin in addition to her plavix. Discussed the possibility of ulcer formation but that I am treating her accordingly for this. Her daughter agreed that improvement today but patient is still very weak. Will get OT/PT input today. They are amendable to outpatient follow up with Dr. Wallace Exam Narrative Exam Narrative: General: Patient is alert, and oriented to person, place and time with normal affect, proper hygiene Skin: no visible rashes, or ulcers Head: atraumatic, acephalic Eyes: PERRLA, no nystagmus present, conjunctiva clear, no scleral icterus Ears: normal gross auditory acuity Heart: Normal rate and rhythm, no murmurs/rubs/gallops Lungs: no audible wheezes, crackles and normal breath sounds all lung chavez Abdomen: hypoactive bowel sounds, pain with palpation of the epigastric region Musculoskeletal: no swelling bilateral lower extremities Neuro: CN II-X grossly intact Constitutional Vital Signs, click to edit/add: Last Vital Signs Temp 98.2 F 04/26/24 08:00 Pulse 71 04/26/24 08:00 Resp 20 04/26/24 08:00 BP 124/58 04/26/24 08:00 Pulse Ox 93 L 04/26/24 08:00 O2 Del Method Room Air 04/26/24 08:00 O2 Flow Rate 2 04/26/24 04:49 Progress Note: A&P Assessment and Plan (1) Acute UTI: Assessment and Plan: continue Cipro, urine culture pending (2) Enteritis: Assessment and Plan: most likely exacerbation of her underlying microcytic colitis. Will stop the bumetinide PO an start some IV solumedrol. Added Flagyl today with Cipro due to WBC's up to 13.3 today from 12.8. Symptoms improving slowly. (3) HTN (hypertension): Assessment and Plan: continue nebivolol, PRN hydralazine. Patient with bradycardia at baseline. Qualifiers: Hypertension type: primary hypertension Qualified Code(s): I10 - Essential (primary) hypertension (4) GERD (gastroesophageal reflux disease): Assessment and Plan: placed on IV protonix, pepcid and carafate, concern that this may also be ulcer, hold aspirin and plavix. monitor H&H but stable today. Qualifiers: Esophagitis presence: esophagitis presence not specified Qualified Code(s): K21.9 - Gastro-esophageal reflux disease without esophagitis (5) IBD (inflammatory bowel disease): Assessment and Plan: does get imodium daily, probiotics (6) Colitis: Assessment and Plan: chronic, may be causing the enteritis (7) CAD (coronary artery disease): Assessment and Plan: continue statin, holding aspirin and plavix due to stomach pain/inflammation Qualifiers: Associated angina: without angina Coronary Disease-Associated Artery/Lesion type: [place] artery [place] vs. transplanted heart: [place] heart Qualified Code(s): I25.10 - Atherosclerotic heart disease of [place] coronary artery without angina pectoris (8) Weakness: Assessment and Plan: will get PT/OT evaluations today Plan Patient is a full code continue SCD's for DVT prophylaxis Patient will most likely need 1-2 more days of hospital necessary care
[2024-04-26 08:55] LABS: Basophils Absolute Auto 0.1 10^3/uL (0.0-0.1); Basophils Percent Auto 0.4 % (0.2-2.0); Eosinophils Percent Auto 0.2 % (0.9-7.0); Hematocrit 39.3 % (36.0-48.0); Hemoglobin 12.7 g/dL (12.0-16.0); Immature Granulocytes Abs Auto 0.05 10^3/uL (0.00-0.03); Immature Granulocytes Pct Auto 0.4 % (0.0-0.5); Lymphocytes Absolute Auto 0.8 10^3/uL (1.2-3.8); Mean Corpuscular HGB Conc 32.3 g/dL (29.9-35.2); Mean Corpuscular Hemoglobin 29.5 pg (26.7-34.0); Mean Corpuscular Volume 91.2 fL (81.0-99.0); Mean Platelet Volume 8.9 fL (9.5-13.5); Monocytes Absolute Auto 1.2 10^3/uL (0.3-0.8); Monocytes Percent Auto 9.4 % (1.7-12.0); Neutrophils Absolute Auto 11.1 10^3/uL (1.4-6.5); Neutrophils Percent Auto 83.6 % (43.0-75.0); Platelet Count 431 10^3/uL (150-450); Red Blood Count 4.31 10^6/uL (4.20-5.40); Red Cell Distribution Width 14.3 % (11.0-15.0); White Blood Count 13.3 10^3/uL (4.0-11.0)
[2024-04-26 09:17] LABS: Alanine Aminotransferase 10 U/L (14-59); Albumin Globulin Ratio 0.8; Alkaline Phosphatase 36 U/L (46-116); Anion Gap 11.1; Aspartate Amino Transferase 21 U/L (15-37); BUN Creatinine Ratio 13.5; Bilirubin Total 0.8 mg/dL (0.2-1.0); Calcium 9.4 mg/dL (8.5-10.1); Carbon Dioxide 27.9 mmol/L (21.0-32.0); Chloride 99 mmol/L (98-107); Estimated GFR (African America 33 (>=60 mL/min/1.73m^2); Estimated GFR (Non-African Ame 27 (>=60 mL/min/1.73m^2); Globulin 3.7 g/dL; Glucose 115 mg/dL (74-106); Magnesium 1.6 mg/dL (1.8-2.4); Sodium 133 mmol/L (136-145); Total Protein 6.7 g/dL (6.4-8.2)
--- NOTE | 2024-04-26 09:20 | SWNOTE1 ---
Pt is from [facility] independent living and may need skilled at discharge. CAROLANN sent updates to David at [facility] and will send PT/OT evals once completed.
--- NOTE | 2024-04-26 10:00 | CM.NOTE ---
Rounds made with Dr. Moseley, pt continues to c/o epigastric and upper abdominal pain. No discharge today. PT and OT will evaluate pt today for increased weakness. Dr. Moseley will start IV steroids and also discussed lab results.
[2024-04-26] MEDS: METRONIDAZOLE/SODIUM CHLORIDE 500 MG/100 ML PREMIX 100 MG IV ×2 (10:17→17:15)
[2024-04-26] MEDS: METHYLPREDNISOLONE SOD SUCC PF 40 MG/ML VIAL IVP ×3 (10:59→21:40)
[2024-04-26] MEDS: LACTATED RINGER'S SOLUTION 1,000 ML 50 ML IV (13:43)
--- NOTE | 2024-04-26 13:44 | SWNOTE1 ---
CAROLANN did look over PT/OT note and only recommendation of home health. CAROLANN let Nilsa at [facility] know. CAROLANN spoke to Nilsa about having the [facility] therapy team come over and see her. They can do that unless pt needs usp as well, then it would have to be a [employer] company.
--- NOTE | 2024-04-26 14:06 | CM.NOTE ---
Addendum entered by Letty Bangura 04/26/24 14:28: Also discussed HH services, pt has had [facility] in the past and interested in going back with [facility]. Updated SW Original Note: Important Message From Medicare discussed with pt's daughter. Pt sleeping at this time, daughter verbalizes understanding and signs paper. Original given to pt and copy placed in pt's chart.
--- NOTE | 2024-04-26 14:26 | SWNOTE1 ---
SW spoke to case management and pt and daughter would like to use [facility] once returning to independent living at [place]. Referral sent to [facility]. Referral included face sheet, ED note, H&P, provider notes, case management report, and PT/OT notes.
--- NOTE | 2024-04-26 16:07 | SWNOTE1 ---
CAROLANN called [facility] and they are able to accept. CAROLANN let nurse know.
[2024-04-26] MEDS: ATORVASTATIN CALCIUM 20 MG TABLET PO (21:14)
[2024-04-27] VITALS (21 sets, daily range): BP systolic 131–168; BP diastolic 58–73; PULSE 56–69; TEMP 36.4–36.6; O2SAT 88–95
[2024-04-27] MEDS: METRONIDAZOLE/SODIUM CHLORIDE 500 MG/100 ML PREMIX 100 MG IV (01:59)
[2024-04-27] MEDS: METHYLPREDNISOLONE SOD SUCC PF 40 MG/ML VIAL IVP ×4 (04:43→21:51)
[2024-04-27] MEDS: CIPROFLOXACIN IN 5 % DEXTROSE 400 MG/200 ML PREMIX 200 MG IV (04:45)
[2024-04-27 06:03] LABS: Basophils Percent Auto 0.1 % (0.2-2.0); Hematocrit 33.7 % (36.0-48.0); Hemoglobin 11.2 g/dL (12.0-16.0); Immature Granulocytes Abs Auto 0.03 10^3/uL (0.00-0.03); Immature Granulocytes Pct Auto 0.3 % (0.0-0.5); Lymphocytes Absolute Auto 0.4 10^3/uL (1.2-3.8); Lymphocytes Percent Auto 5.1 % (20.5-60.0); Mean Corpuscular HGB Conc 33.2 g/dL (29.9-35.2); Mean Corpuscular Hemoglobin 29.6 pg (26.7-34.0); Mean Corpuscular Volume 88.9 fL (81.0-99.0); Mean Platelet Volume 9.5 fL (9.5-13.5); Monocytes Absolute Auto 0.1 10^3/uL (0.3-0.8); Monocytes Percent Auto 1.3 % (1.7-12.0); Neutrophils Absolute Auto 8.1 10^3/uL (1.4-6.5); Neutrophils Percent Auto 93.2 % (43.0-75.0); Platelet Count 442 10^3/uL (150-450); Red Blood Count 3.79 10^6/uL (4.20-5.40); Red Cell Distribution Width 14.2 % (11.0-15.0); White Blood Count 8.7 10^3/uL (4.0-11.0)
[2024-04-27 06:30] LABS: Alanine Aminotransferase 18 U/L (14-59); Albumin Globulin Ratio 0.8; Albumin Level 2.9 g/dL (3.4-5.0); Alkaline Phosphatase 29 U/L (46-116); Anion Gap 15.9; Aspartate Amino Transferase 18 U/L (15-37); Bilirubin Total 0.6 mg/dL (0.2-1.0); Calcium 9.2 mg/dL (8.5-10.1); Carbon Dioxide 22.3 mmol/L (21.0-32.0); Chloride 96 mmol/L (98-107); Estimated GFR (African America 24 (>=60 mL/min/1.73m^2); Estimated GFR (Non-African Ame 19 (>=60 mL/min/1.73m^2); Globulin 3.6 g/dL; Glucose 158 mg/dL (74-106); Magnesium 1.6 mg/dL (1.8-2.4); Potassium 5.2 mmol/L (3.5-5.1); Sodium 129 mmol/L (136-145); Total Protein 6.5 g/dL (6.4-8.2)
[2024-04-27] MEDS: SUCRALFATE 1 GM TABLET PO ×4 (07:36→21:05)
--- NOTE | 2024-04-27 08:37 | PM.PN ---
Progress Note: Subjective Subjective Interval history: Patient is walking down the [place] with PT. She is using her walker and appears less weak today. She still having some epigastric bloating but denies pain. She has been keeping down food with no Nausea or vomiting. She did have bowel movement this morning as well. No fevers or chills. Daughter is also at bedside. Discussed Overall improvement but increase in Renal function due to contrast and medications. I told her I have changed several things today including stopping her spironolactone. Continue IVF at low rate LR &50. Will reassess tomorrow but Cr was 2.36, BUN 33 and potassium 5.2, mag 1.6 Exam Narrative Exam Narrative: General: Patient is alert, and oriented to person, place and time with normal affect, proper hygiene Skin: no visible rashes, or ulcers Head: atraumatic, acephalic Eyes: PERRLA, no nystagmus present, conjunctiva clear, no scleral icterus Ears: normal gross auditory acuity Heart: Normal rate and rhythm, no murmurs/rubs/gallops Lungs: no audible wheezes, crackles and normal breath sounds all lung chavez Abdomen: Normal bowel sounds, distention of the upper abdomen/ epigastric region Musculoskeletal: no swelling bilateral lower extremities Neuro: CN II-X grossly intact Constitutional Vital Signs, click to edit/add: Last Vital Signs Temp 97.8 F 04/27/24 04:42 Pulse 62 04/27/24 08:00 Resp 14 04/27/24 07:31 BP 131/58 04/27/24 07:31 Pulse Ox 91 L 04/27/24 04:42 O2 Del Method Nasal Cannula 04/27/24 04:42 O2 Flow Rate 2 04/27/24 04:42 Progress Note: Objective Labs Labs: Short CBC 04/26/24 04/27/24 Range/Units 08:50 05:11 WBC 13.3 H 8.7 (4.0-11.0) 10^3/uL Hgb 12.7 11.2 L (12.0-16.0) g/dL Hct 39.3 33.7 L (36.0-48.0) % Plt Count 431 442 (150-450) 10^3/uL BMP 04/26/24 04/27/24 08:50 05:11 Sodium 133 L 129 L Potassium 5.0 5.2 H Chloride 99 96 L Carbon Dioxide 27.9 22.3 BUN 24.0 H 33.0 H Creatinine 1.78 H 2.36 H Glucose 115 H 158 H Calcium 9.4 9.2 Liver Function 04/26/24 04/27/24 Range/Units 08:50 05:11 Total Bilirubin 0.8 0.6 (0.2-1.0) mg/dL AST 21 18 (15-37) U/L ALT 10 L 18 (14-59) U/L Alkaline Phosphatase 36 L 29 L (46-116) U/L Albumin 3.0 L 2.9 L (3.4-5.0) g/dL Progress Note: A&P Assessment and Plan (1) Acute renal failure (ARF): Assessment and Plan: stop IV flagyl and cipro, place on oral cipro only. Stop IV protonix, place on oral omeprazole. Stop spironolactone. continue with LR @50, Can also be Contrast induced. Qualifiers: Acute renal failure type: unspecified Qualified Code(s): N17.9 - Acute kidney failure, unspecified (2) Acute UTI: Assessment and Plan: due to Klebsiella [place] that is sensitive to oral cipro (3) Enteritis: Assessment and Plan: continue cipro, stop flagyl today, WBC's now normal and pain is improved on the IV solumedrol. (4) HTN (hypertension): Assessment and Plan: stop spironolactone, continue nadolol Qualifiers: Hypertension type: primary hypertension Qualified Code(s): I10 - Essential (primary) hypertension (5) GERD (gastroesophageal reflux disease): Assessment and Plan: possible ulcer, PO pepcid, protonix and Carafate, holding aspirin and plavix Qualifiers: Esophagitis presence: esophagitis presence not specified Qualified Code(s): K21.9 - Gastro-esophageal reflux disease without esophagitis (6) IBD (inflammatory bowel disease): Assessment and Plan: continue solumedrol (7) Colitis: Assessment and Plan: chronic but acute, treat with cipro and steroids (8) CAD (coronary artery disease): Assessment and Plan: continue statin, holding aspirin and plavix due to stomach pain/inflammation Qualifiers: Associated angina: without angina Coronary Disease-Associated Artery/Lesion type: [place] artery [place] vs. transplanted heart: [place] heart Qualified Code(s): I25.10 - Atherosclerotic heart disease of [place] coronary artery without angina pectoris (9) Weakness: Assessment and Plan: continue PT/OT Plan Patient is a full code Stop Lovenox due to renal function, apply SCD's or compression stockings for dvt prophylaxis Significant renal impairment today, would like to see down trend before discharge. Will require 1-2 more days.
[2024-04-27] MEDS: CIPROFLOXACIN HCL 500 MG TABLET PO (09:01)
[2024-04-27] MEDS: GABAPENTIN 100 MG CAPSULE PO ×2 (09:01→21:05)
[2024-04-27] MEDS: OMEPRAZOLE 20 MG CAPSULE.DR PO ×2 (09:01→21:05)
[2024-04-27] MEDS: ENSURE ORIGINAL 237 ML BOTTLE PO (09:03)
[2024-04-27] MEDS: MAGNESIUM OXIDE 400 MG TABLET PO ×2 (09:03→21:05)
[2024-04-27] MEDS: FAMOTIDINE 20 MG TABLET 10 MG PO (09:03)
[2024-04-27] MEDS: NEBIVOLOL HCL 5 MG TABLET 10 MG PO (09:03)
[2024-04-27] MEDS: LACTATED RINGER'S SOLUTION 1,000 ML 50 ML IV (10:08)
--- NOTE | 2024-04-27 11:59 | CM.NOTE ---
Rounds made with Dr. Moseley. Dr. Moseley reviews plan of care with Delicia and daughter. Discussed medication changes and lab results. Delicia verbalizes understanding.
--- NOTE | 2024-04-27 12:06 | PT.DAILY ---
Physical Therapy Daily Note PT Daily Note/Assess Start: 04/27/24 11:58 Freq: Status: Active Protocol: Document 04/27/24 10:45 ESHUMICK (Rec: 04/27/24 12:06 [email or web address] [id number]) Physical Therapy Daily Note/Assessment Time In/Time Out Time In 10:45 Time Out 11:03 Subjective Subjective Patient states she is feeling good today and does not have any complaints. Therapeutic Exercise Time Therapeutic Exercise 8 Minutes (minutes) Therapeutic Exercise Treatment Therapeutic Exercise B seated marches x 10 Treatment B LAQ x 10 B hip abduction x 10 Hip adduction squeezes x 10 HR/TR x 10 Therapeutic Activity Time Therapeutic Activity 10 Minutes (minutes) Therapeutic Activity 1 Units Therapeutic Activity Treatment Chair Transfer Standby Assistance Ability Therapeutic Activity Patient ambulates 135 feet with RW CGA with assistance Comments required for IV pull Total Physical Therapy Time Total Therapy 18 Minutes Total Physical 1 Therapy Units Summary Daily Note Summary Patient increases ambulation to 135 feet. Patient to continue with home health at discharge. Patient in chair with call light in reach and all needs met and family in room.
--- NOTE | 2024-04-27 13:40 | SWNOTE1 ---
SW sent updated progress note and PT/OT note from today to [facility].
[2024-04-27] MEDS: ATORVASTATIN CALCIUM 20 MG TABLET PO (21:05)
[2024-04-27] MEDS: ACETAMINOPHEN 325 MG TABLET 650 MG PO (21:08)
[2024-04-28] VITALS (15 sets, daily range): BP systolic 129–181; BP diastolic 45–79; PULSE 53–112; TEMP 36.4–36.6; O2SAT 87–95
[2024-04-28] MEDS: HYDRALAZINE HCL 20 MG/ML VIAL 10 MG IVP ×2 (00:17→04:35)
[2024-04-28] MEDS: ONDANSETRON PF 4 MG/2 ML VIAL IV (01:41)
--- NOTE | 2024-04-28 02:16 | PC.NURSE ---
Patient has c/o of midback pain. PRN med was ineffective. Heat and repositioned but no relief. Pt dry heaving, small amount of incontinent loose stool. [employer] notified
[2024-04-28] MEDS: MORPHINE SULFATE 2 MG/ML SYRINGE IV ×2 (02:24→06:16)
[2024-04-28] MEDS: METHYLPREDNISOLONE SOD SUCC PF 40 MG/ML VIAL IVP (04:35)
[2024-04-28 05:55] LABS: Basophils Percent Auto 0.1 % (0.2-2.0); Hematocrit 35.2 % (36.0-48.0); Hemoglobin 11.7 g/dL (12.0-16.0); Immature Granulocytes Abs Auto 0.24 10^3/uL (0.00-0.03); Immature Granulocytes Pct Auto 1.1 % (0.0-0.5); Lymphocytes Absolute Auto 0.9 10^3/uL (1.2-3.8); Lymphocytes Percent Auto 4.2 % (20.5-60.0); Mean Corpuscular HGB Conc 33.2 g/dL (29.9-35.2); Mean Corpuscular Hemoglobin 29.7 pg (26.7-34.0); Mean Corpuscular Volume 89.3 fL (81.0-99.0); Mean Platelet Volume 9.3 fL (9.5-13.5); Monocytes Absolute Auto 0.7 10^3/uL (0.3-0.8); Monocytes Percent Auto 3.5 % (1.7-12.0); Neutrophils Absolute Auto 19.2 10^3/uL (1.4-6.5); Neutrophils Percent Auto 91.1 % (43.0-75.0); Platelet Count 536 10^3/uL (150-450); Red Blood Count 3.94 10^6/uL (4.20-5.40); Red Cell Distribution Width 14.2 % (11.0-15.0); White Blood Count 21.1 10^3/uL (4.0-11.0)
[2024-04-28 06:13] LABS: Alanine Aminotransferase 18 U/L (14-59); Albumin Globulin Ratio 0.9; Albumin Level 3.2 g/dL (3.4-5.0); Alkaline Phosphatase 32 U/L (46-116); Anion Gap 15.8; Aspartate Amino Transferase 23 U/L (15-37); BUN Creatinine Ratio 19.3; Bilirubin Total 0.4 mg/dL (0.2-1.0); Calcium 9.2 mg/dL (8.5-10.1); Carbon Dioxide 21.1 mmol/L (21.0-32.0); Chloride 99 mmol/L (98-107); Estimated GFR (African America 24 (>=60 mL/min/1.73m^2); Estimated GFR (Non-African Ame 20 (>=60 mL/min/1.73m^2); Globulin 3.6 g/dL; Glucose 149 mg/dL (74-106); Potassium 4.9 mmol/L (3.5-5.1); Sodium 131 mmol/L (136-145); Total Protein 6.8 g/dL (6.4-8.2)
[2024-04-28] MEDS: LACTATED RINGER'S SOLUTION 1,000 ML 50 ML IV (07:17)
[2024-04-28] MEDS: SUCRALFATE 1 GM TABLET PO (07:36)
--- NOTE | 2024-04-28 09:01 | PM.DS1 ---
DS: Providers Provider Date of admission: 04/25/24 08:17 Primary care physician: Shirlene Vergara MD Attending physician on admission: Jeanette Moseley Consults: 04/26/24 Occupational Therapy Eval and Treat Routine Reason for consultation: weakness Physical Therapy Eval and Treat Routine Reason for consultation: weakness Discharging clinician: Jeanette Moseley DS: Diagnosis Discharge Diagnosis (1) Partial small bowel obstruction: (2) Acute renal failure (ARF): Qualifiers: Acute renal failure type: unspecified Qualified Code(s): N17.9 - Acute kidney failure, unspecified (3) Acute UTI: (4) UTI due to Klebsiella species: (5) Enteritis: (6) HTN (hypertension): Qualifiers: Hypertension type: primary hypertension Qualified Code(s): I10 - Essential (primary) hypertension (7) GERD (gastroesophageal reflux disease): Qualifiers: Esophagitis presence: esophagitis presence not specified Qualified Code(s): K21.9 - Gastro-esophageal reflux disease without esophagitis (8) IBD (inflammatory bowel disease): (9) Colitis: (10) CAD (coronary artery disease): Qualifiers: Associated angina: without angina Coronary Disease-Associated Artery/Lesion type: [place] artery [place] vs. transplanted heart: [place]ung heart Qualified Code(s): I25.10 - Atherosclerotic heart disease of [place] coronary artery without angina pectoris (11) Weakness: DS: Summary Hospital Course Hospital Course: This is an 88-year-old female patient with a past medical history of recurrent UTIs, IBD following with GI as an outpatient and chronic intermittent diarrhea (microscopic colitis), CAD status post CABG x5 and recent PAD surgery (Dr. Kirkland), hypertension and GERD; who presented to the ED on 04/25/24 with epigastric abdominal pain, nausea and vomiting. She denied diarrhea, fever or chills. ER findings: WBC's 15.2, HB 11.3, Cr 1.39, lipase 18, UA positive (recent culture positive for Klebsiella pneumoniae and was again 04/26/24); CT of the Ab/pelvis with contrast showed: moderate enteritis. Patient was given GI cocktail and Fentanyl for pain, and Cipro for UTI and admitted to the hospitalist service for further plan of care. She was on IV Cipro, Flagyl, IV protonix, pepcid, Carafate and IV solumedrol, I held her plavix and aspirin secondary to thinking possible gastritis/ulcer. Her symptoms were improving and on 04/27/24 she was up walking in the halls, had soft bowel movement, belching but still felt some bloating. She was tolerating bland diet yesterday. Her renal function worsened with Cr. 2.36 so I stopped IV medications and started Oral cipro, protonix and held her spironolactone and placed on low LR @50cc/hr with anticipation for discharge today. However, last night, developed nausea and vomiting, worsening epigastric pain had to be given IV morphine and WBC's increased to 21. She was made NPO and CT Chest and Abdomen without contrast showed partial small bowel obstruction. I have spoke with patient and her daughter with the findings and they are amendable to Transfer to [facility] for General Surgery and/or GI consult. We do not have General Surgery here at [facility]. I have spoke with Dr. Girard and Dr. Bazan and they have accepted patient and she will be transferred there today. I have seen patient at the time of discharge, Epigastric pain with some distension, hypoactive bowel sounds. As a side note: I spoke with Dr. Kirkland (her vascular doctor) yesterday who recommended restarting the plavix, stopping aspirin and placing the patient on Cilostazol at discharge. If she can tolerate. Status at Discharge Functional status at discharge: uses cane/walker Overall status at discharge: patient is not back to baseline Time Spent with Patient Time attestation: Total time spent providing and/or coordinating discharge services: Time spent: greater than 30 minutes Exam Narrative Exam Narrative: General: Patient is alert, and oriented to person, place and time with normal affect, proper hygiene Skin: no visible rashes, or ulcers Head: atraumatic, acephalic Eyes: PERRLA, no nystagmus present, conjunctiva clear, no scleral icterus Ears: normal gross auditory acuity Heart: Normal rate and rhythm, no murmurs/rubs/gallops Lungs: no audible wheezes, crackles and normal breath sounds all lung chavez Abdomen: hypoactive bowel sounds, distention of the upper abdomen/ epigastric region Musculoskeletal: no swelling bilateral lower extremities Neuro: CN II-X grossly intact Constitutional Vital Signs, click to edit/add: Last Vital Signs Temp 97.6 F 03/21/25 07:28 Pulse 56 L 04/28/24 08:00 Resp 16 04/28/24 07:28 BP 136/45 L 04/28/24 07:28 Pulse Ox 93 L 04/28/24 07:28 O2 Del Method Nasal Cannula 04/28/24 04:00 O2 Flow Rate 2 04/28/24 04:00 DS: Data Data Completed and Pending Labs on day of discharge: Labs from last 24 hours 04/28/24 04/28/24 06:25 05:30 WBC 21.1 H RBC 3.94 L Hgb 11.7 L Hct 35.2 L MCV 89.3 MCH 29.7 MCHC 33.2 RDW 14.2 Plt Count 536 H MPV 9.3 L Neut % (Auto) 91.1 H Lymph % (Auto) 4.2 L [place] % (Auto) 3.5 Eos % (Auto) 0.0 L Baso % (Auto) 0.1 L Neut # (Auto) 19.2 H Lymph # (Auto) 0.9 L [place] # (Auto) 0.7 Eos # (Auto) 0.0 Baso # (Auto) 0.0 Abs Immat Gran (auto) 0.24 H Imm/Tot Granulo (auto) 1.1 H Sodium 131 L Potassium 4.9 Chloride 99 Carbon Dioxide 21.1 Anion Gap 15.8 BUN 45.0 H Creatinine 2.33 H Est GFR ( Amer) 24 L Est GFR (Non-Af Amer) 20 L BUN/Creatinine Ratio 19.3 Glucose 149 H Lactate 2.0 Calcium 9.2 Total Bilirubin 0.4 AST 23 ALT 18 Alkaline Phosphatase 32 L Total Protein 6.8 Albumin 3.2 L Globulin 3.6 Albumin/Globulin Ratio 0.9 Discharge Plan Discharge Disposition: Xfer Acute Care Hospital Condition: Good Style Advisor/Cancer Spec Instructions: [facility], they should contact within 48 hours or discharge. Phone number is [phone]. Discharge location: To [facility] Dr. Hortensia stern, Dr. Girard consulted
[2024-04-28] MEDS: CIPROFLOXACIN IN 5 % DEXTROSE 400 MG/200 ML PREMIX 200 MG IV (09:58)
[2024-04-28] MEDS: NEBIVOLOL HCL 5 MG TABLET 10 MG PO (10:00)
[2024-04-28] MEDS: PANTOPRAZOLE SODIUM 40 MG VIAL IV (10:13)
--- NOTE | 2024-04-28 11:21 | CM.NOTE ---
Rounds made with Dr. Moseley. Dr. Moseley reviews STAT orders and results. Family and Delicia verbalize understanding. Awaiting room assignment at [facility].
--- NOTE | 2024-04-28 11:21 | PC.NURSE ---
Report called to Calvin CHAIDEZ at [address] [place] [address]...Superior pickup time cheduled for 12:30
== END 2024-04-28 12:43 | disposition short-term general hospital (02) | DRG 690 ==
LOC: ER 16:33 → MS 18:09
PROVIDERS: Physician Assistant; Admitting Provider Family Medicine; Emergency Provider Student in an Organized Health Care Education/Training Program; PCP Family Medicine; Visit Provider Family Medicine
DX: N39.0 Urinary tract infection, site not specified (principal); K56.609 Unspecified intestinal obstruction, unspecified as to partial versus complete obstruction; N17.9 Acute kidney failure, unspecified; Z68.1 Body mass index [BMI] 19.9 or less, adult; K52.839 Microscopic colitis, unspecified; B96.1 Klebsiella pneumoniae [K. pneumoniae] as the cause of diseases classified elsewhere; I10 Essential (primary) hypertension; K21.9 Gastro-esophageal reflux disease without esophagitis; R63.0 Anorexia; K63.89 Other specified diseases of intestine; I25.10 Atherosclerotic heart disease of native coronary artery without angina pectoris; R53.1 Weakness; Z95.1 Presence of aortocoronary bypass graft; Z79.02 Long term (current) use of antithrombotics/antiplatelets; Z79.899 Other long term (current) drug therapy; Z87.11 Personal history of peptic ulcer disease; Z88.0 Allergy status to penicillin; Z88.1 Allergy status to other antibiotic agents; Z88.8 Allergy status to other drugs, medicaments and biological substances; Z96.642 Presence of left artificial hip joint; Z79.82 Long term (current) 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
CPT/HCPCS: 36415; 71250; 74176; 74177; 80053; 81001; 83605; 83690; 83735; 84484; 85025; 87086; 87150; 87186; 87493; 93005; 94761; 96365; 96366; 96375; 96376; 97110; 97161; 97165; 97530; 97535; 99285; G0378; J0360; J0744; J1650; J1836; J2270; J2405; J2919; J3010; Q9966

== ENCOUNTER 2024-07-07 11:33 | Emergency (ER) | payer MEDICARE, BC, SELFPAY ==
--- OUTSIDE RECORDS SUMMARY | 2023-06-28 06:00 | XMS_ITS ---
Author Organization [facility] in [place] Address [address] [place] [address] Care Team Providers Care Theater Education Teacher Name Role Phone Shirlene Vergara Primary Care Provider Twila Fountain Unavailable [phone] REASON FOR VISIT Nail Care Encounters Encounter Location Date Provider Diagnosis [facility] (PODIATRY) [address] [place] [address] [place] [address] 06/28/2023 Twila Leon Persons encountering health services in other specified circumstances Z76.89 Assessments Encounter Date Diagnosis (ICD Code) Assessment Notes Treatment Notes Treatment Clinical Notes Section Notes 06/28/2023 Persons encountering health services in other specified circumstances (ICD-10 - Z76.89) Plan Of Treatment No Information Progress Notes * Delicia SANDERSONDOB:1935 ( 87 yo F)Acc No.[id number]:06/28/2023 Nurse Visit Patient: Delicia GONZALES Provider: Sundar Leon PA-C :1935 A ge:87 Y S ex:Female Date:06/28/2023 Address:[address] [place], [id number] Pcp:Shirlene Vergara Check In:09:54 AM ESTCheck O [...] true * Provider: Sundar Leon PA-C Date: 06/28/2023 Generated for Verónica rivas/Sree/eTransmitting on: 07/07/2024 11:40 AM EDT
--- OUTSIDE RECORDS SUMMARY | 2023-09-27 06:00 | XMS_ITS ---
Author Organization [facility] [place] Address [address] [place] [address] Care Team Providers Care Statistical Clerk Advertising Name Role Phone Shirlene Vergara Primary Care Provider UnavailTwila Mosley Unavailable [phone] REASON FOR VISIT Nail Care Encounters Encounter Location Date Provider Diagnosis [facility] (PODIATRY) [address] [place] [address] [place] [address] 09/27/2023 Twila Leon Plan Of Treatment No Information Progress Notes * Delicia SANDERSON FDOB:1935 (88 yo F)Acc No.[id number]:09/27/2023 UNLOCKED PROGRESS NOTE Nurse Visit Patient: Delicia GONZALES Provider: Sundar Leon PA-C :1935 A ge:87 Y S ex:Female Date:09/27/2023 Address[address] [place], [id number] Pcp:Shirlene Vergara Check In:09:59 AM EST Subjective: * Chief Complaints: * 1 . Nail Care. * Medical History: Objective: * Vitals: Assessment: Plan: * Treatment: * * Electronic signature of Spencer Leon PA-C on 07/07/2024 at 11:39 AM EDT Sign off status: Pending Visit Status: O FF CANC (OFFICE CANCEL) * Provider: Sundar Leon PA-C Date: 0 09/27/2023 Generated for Verónica rivas/Sree/Angelitaitting on: 0 07/07/2024 11:39 AM EDT
--- OUTSIDE RECORDS SUMMARY | 2024-07-07 11:39 | XMS_ITS | Referral Summary ---
Author Organization [facility] Address [address] [place] [address] Care Team Providers Care Research Worker Encyclopedia Name Role Phone Shirlene Vergara MD Primary Care Provider [phone] Allergies Active Allergy Reactions Criticality Noted Date Comments Histamine Other 02/03/2013 it wires me Levofloxacin 06/30/2022 Promethazine Other 02/03/2013 Made her shake very badly Medications Medication Sig Dispensed Refills Start Date End Date Status budesonide EC (Entocort EC) 3 mg [address] - ER 3 mg capsule,delayed,ex tended release Active simvastatin (Zocor) 40 mg tablet simvastatin 40 mg tablet Active pantoprazole (ProtoNix) 40 mg EC tablet Take 40 mg by mouth in the morning. 11/04/2021 Active miscellaneous medical supply (Blood Pressure Cuff) miscIndications:Yordan ign hypertensive heart disease with heart failure (CMS/HCC) 1 kit in the morning and at bedtime. 1 each 08/17/2022 Active Additional Information Patient not taking.Reported on 03/02/2024 cholecalciferol, vitamin D3, 50 mcg (2,000 unit) capsule Take 1 tablet by mouth in the morning. Active clopidogrel (Plavix) 75 mg tabletIndications:C oronary artery disease, unspecified vessel or lesion type, unspecified whether angina present, unspecified whether [place] or transplanted heart TAKE 1 TABLET BY MOUTH ONCE DAILY DIRECTED 90 tablet 3 09/02/2023 Active spironolactone (Aldactone) 50 mg tablet Take 50 mg by mouth in the morning. Active nebivolol (Bystolic) 5 mg tabletIndications:E ssential hypertension Take 1 tablet (5 mg) by mouth in the morning. 30 tablet 11 11/09/2023 Active nebivolol (Bystolic) 10 mg tabletIndications:B enign hypertensive heart disease with heart failure (CMS/HCC) Take 1 tablet (10 mg) by mouth once daily as directed. 90 tablet 3 12/02/2023 12/01/2024 Active ascorbic acid (Vitamin C) 250 MG chewable tablet Chew 250 mg. Active rivaroxaban (Xarelto) 2.5 mg tablet Take by mouth. Active gabapentin (Neurontin) 100 mg capsule Take 100 mg by mouth three times daily. Active Active Problems Problem Noted Date Diagnosed Date Anemia 11/09/2023 C. 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 We will proceed with arterial revascularization followed by venous intervention and Unna boot. Venous insufficiency (chronic) (peripheral) 05/202211/11/2022 Arthritis of right knee 11/02/2022 11/12/19 Internal derangement of right knee 11/02/2022 11/11/2022 Complete tear of right rotator cuff 11/02/2022 11/11/2022 Coronary artery disease with angina pectoris 11/11/2022 Essential hypertension 11/02/2022 Hip bursitis, left 11/02/2022 11/11/2022 Other abnormalities of gait and mobility 023 11/11/2022 Osteoarthritis of hip 06/30/2022 PAD (peripheral artery disease) 01/06/2022 Overview (06/30/2022): Added automatically from request for surgery [id number] Closed fracture of neck of femur 06/07/2017 Social History Tobacco Use Types Packs/Day Years Used Date Smoking Tobacco: Former Cigarettes Smokeless Tobacco: Never Tobacco Cessation:Counseling Given: Not Answered Alcohol Use Standard Drinks/Week Comments Not Currently 0 (1 standard drink = 0.6 oz pur e alcohol) [place] Safety & Environment Answer Date Rec orded Fear of Current or Ex-Partner Not on file Emotionally Abused Not on file 04/01/2023 Physically Abused Not on file 04/01/2023 Sexually Abused Not on file 04/01/2023 Physically or Sexually Abused Not on file Sex and Gender Information Value Date Recorded Sex Assigned at Not on file Gender Identity Not on file Sexual Orientation Not on file Last Filed Vital Signs Vital Sign Reading Time Taken Comments Blood Pressure 164/66 11/09/2023 11:45 AM EDT Pulse 55 11/09/2023 11:30 AM EDT Temperature - - Respiratory Rate - - Oxygen Saturation 99% 11/09/2023 11:30 AM EDT Inhaled Oxygen Concentration - - Weight 62.1 kg (137 lb) 11/09/2023 11:30 AM EDT Height 177.8 cm (5' 10 ) 11/09/2023 11:30 AM EDT Body Mass Index 19.66 11/09/2023 11:30 AM EDT Plan of Treatment Upcoming Encounters Date Type Department Care Team (Late st Contact Info) Description 07/26/2024 2:20 PM EDT Office Visit [facility] [address] [place] [address] Zeenat Arriola CNP [address] [place] [phone] Care Teams Research Worker Encyclopedia Relationship Specialty Start Date End Date Shirlene Vergara MD [address] [facility] #A PCP - General 12/05/21
--- OUTSIDE RECORDS SUMMARY | 2024-07-07 11:39 | XMS_ITS | Clinical Summary ---
Author Organization [facility] Address [id number] [address] [place] [address] Care Team Providers Care [employer] Name Role Phone Shirlene Vergara MD Primary Care Provider [phone] Allergies Active Allergy Reactions Criticality Noted Date Comments Antihistamine 12 Hour Other (See Comments) Low 05/21/2023 restlessness Diphenhydramine Hcl Other (See Comments) Low 10/14/2023 restlessness Ezetimibe Other (See Comments) Low 10/14/2023 unknown Gemfibrozil Other (See Comments) Low 10/14/2023 unknown Histamine H2 Inhibitors Other (See Comments) Low 11/21/2021 restlessness Levofloxacin Other (See Comments) Medium 08/23/2023 Sleeplessness restless legs Nsaids (Non-Steroidal Anti-Inflammatory Drug) Other (See Comments) High 10/14/2023 [facility] Penicillins Rash High 08/23/2023 Promethazine Anxiety Low 11/21/2021 JITTERY Propoxyphene N-Acetaminophen Other (See Comments) Low 10/14/2023 JITTERY NOT ALLERGIC TO TYLENOL Medications simvastatin (ZOCOR) 40 mg tabletIndications: hyperlipidemia Take 1 tablet (40 mg total) by mouth in the morning. Indications: excessive fat in the blood. Active budesonide EC (ENTOCORT EC) 3 mg 24 hr capsule Take 1 capsule (3 mg total) by mouth in the morning. Active pantoprazole (PROTONIX) 40 mg EC tabletIndications: gastroesophageal reflux disease Take 20 mg by mouth in the morning. Indications: gastroesophageal reflux disease. Active spironolactone (ALDACTONE) 25 mg tabletIndications: hypertension Take 2 tablets (50 mg total) by mouth in the morning. Indications: high blood pressure. Active melatonin 10 mg tablet Take 1 tablet by mouth nightly. Active cholecalciferol, vitamin D3, (D3-50 CHOLECALCIFEROL ORAL) Take 1 tablet by mouth in the morning. Active zinc 50 mg tablet tablet Take 1 tablet (50 mg total) by mouth in the morning. Active loperamide (IMODIUM A-D) 2 mg tablet Take 2 tablets (4 mg total) by mouth as needed. Active acetaminophen (TYLENOL EXTRA STRENGTH) 500 mg tablet Take 2 tablets (1,000 mg total) by mouth every 6 (six) hours as needed for pain. 30 tablet Active bismuth subsalicylate (PEPTO-BISMOL ORAL) daily as needed. TAKES 3 TABS MORNING AND 3 TABS NIGHTLY Active clopidogreL (PLAVIX) 75 mg tabletIndications: myocardial infarction prevention Take 1 tablet (75 mg total) by mouth in the morning. Indications: treatment to prevent a heart attack. Active estradioL (ESTRACE) 0.01 % (0.1 mg/gram) vaginal cream as needed. Active ascorbic acid, vitamin C, (VITAMIN C) 250 mg tablet Take 1 tablet (250 mg total) by mouth in the morning and 1 tablet (250 mg total) before bedtime. Active acidophilus-pectin , citrus 25 million cell -100 mg tablet Take 1 tablet by mouth daily with breakfast. Active vancomycin (VANCOCIN) 125 mg capsule Take 1 capsule (125 mg total) by mouth in the morning. PREVENT UTI. Active nebivoloL (BYSTOLIC) 5 mg tabletIndications: hypertension Take 2 tablets (10 mg total) by mouth in the morning. Indications: high blood pressure. Active naloxone (NARCAN) 4 mg/actuation spray,non-aerosol nasal spray Administer 1 spray (4 mg total) into alternating nostrils as needed for opioid reversal for up to 2 doses. 2 each 10/11/2 024 Active aspirin 81 mg Take 1 tablet (81 mg total) by mouth in the morning. Active rivaroxaban (XARELTO) 2.5 mg tablet Take 1 tablet (2.5 mg total) by mouth in the morning and 1 tablet (2.5 mg total) before bedtime. 60 tablet 3 Active acetic acid 0.25 % irrigation Irrigate with 20 mL as directed in the morning and 20 mL before bedtime. Use 20 cc per gauze. 500 mL 12 Active Active Problems Problem Noted Date Diagnosed Date Critical limb ischemia of le ft lower extremity with rest pain 02/24/2024 Assessment & Plan (02/24/2024 12:07 PM EST): We will address the left lower extremity if she continues to have pain after the wound heals on the right side. For now she feels like the pain is tolerable she will see me sooner if it is not Encounter for therapeutic drug monitoring 2023 Venous ulcer of ankle, right 12/09/2023 Assessment & Plan (12/09/2023 10:41 AM EDT): Discussed with her doing right GSV ablation and ultrasound-guided injection sclerotherapy For right lower extremity venous ulcer and significant GSV reflux and varicose veins. We will also do Unna boot and wound care. Chronic ulcer of lower extremity 11/18/2023 Non-pressure chronic ulcer o f right lower leg, limited to breakdown of skin 11/18/2023 Chronic ulcer of right heel 11/18/2023 Gastroesophageal reflux disease 11/18/2023 Immunocompromised state 11/18/2023 Ingrown nail 11/18/2023 Non-pressure chronic ulcer of calf with fat laye r exposed 11/18/2023 Peripheral vascular disease 11/18/2023 Venous ulcer of lower extrem ity due to chronic peripheral venous hypertension 11/18/2023 Critical limb ischemia of ned th lower extremities with rest pain 11/18/2023 Anemia 11/09/2023 C. 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 Risk factors modification.Continue wound care. Assessment & Plan (12/30/2023 1:22 PM EST): She needs right lower extremity iliofemoral endarterectomy iliac stenting and a fem-pop bypass. She is scheduled for Wednesday. Assessment & Plan (12/09/2023 10:39 AM EDT): I did an angiogram and shockwave balloon angioplasty of the right common iliac artery. I discussed with her that we will get a PVR and she may need bilateral iliofemoral endarterectomy and bilateral lower extremity angiogram intervention is a hybrid procedure to improve the blood flow to her legs. Assessment & Plan (10/14/2023 11:19 AM EDT): She has right lower extremity critical limb [...] that Venous ulcer of right leg 10/14/2023 Assessment & Plan (10/14/2023 11:20 AM EDT): We will get venous reflux ultrasound. We will proceed with arterial revascularization followed by venous intervention and Unna boot. 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 We will proceed with arterial revascularization followed by venous intervention and Unna boot. Venous insufficiency (chronic) (peripheral) 05/2022 Assessment & Plan (12/30/2023 1:22 PM EST): I did ultrasound-guided injection sclerotherapy. I discussed with her that she will need a right lower extremity revascularization. I might need to use her vein. If I do not use her vein I will do ligation of her GSV. Arteriosclerosis of coronary artery 11/02/2022 Arthritis of right knee 11/02/2022 Internal derangement of right knee 11/02/2022 Complete tear of right rotator cuff 11/02/2022 Essential hypertension 11/02/2022 Hip bursitis, left 11/02/2022 Primary osteoarthritis of left hip 11/02/2022 Other abnormalities of gait and mobility 023 Osteoarthritis of hip 06/30/2022 PAD (peripheral artery disease) 01/06/2022 Overview (01/06/2022): Added automatically from request for surgery [id number] Closed fracture of neck of femur 06/07/2017 Overview (11/18/2023): Due to a fall Immunizations Immunization Administration Dates Next Due Covid-19, Mrna, Lnp-s, Pf,jose-sucrose,30 Mcg/0.3ml Seasonal 11/23/2023 Influenza High Dose Preserva tive Free IM 11/23/2023,12/02/2016,12/17/2015,11/19 Influenza Vaccine, Quadrival ent, Adjuvanted 02/16/2023,01/06/2021 Influenza, High-dose, Quadrivalent 01/15/2022 Influenza, Injectable, quadr ivalent (PF) 12/06/2019,10/10/2015 Influenza, Trivalent, Adjuvanted 12/14/2018,01/09 Influenza, Unspecified 11/02/2017,12/09/2016 Pneumococcal Polysaccharide 11/08/2017, 5 Family History Medical History Relation Name Comments Cancer Brother Heart failure Father Cerebral aneurysm Mother Cancer Sister Anesthesia problems Neg Hx Relation Name Status Comments Brother Father Mother Sister Social History Tobacco Use Types Packs/Day Years Used Date Smoking Tobacco: Former Cigarettes Q uit: 12/30/1993 Smokeless Tobacco: Never Tobacco Cessation:Counseling Given: Not Answered Comments:QUIT IN 1989 Alcohol Use Standard Drinks/Week Comments Yes 1 (1 standard drink = 0.6 oz pur e alcohol) monthly [employer] Answer Date Recorded In the past 12 months has [employer], oil, or water [employer] threatened to shut off services in your home? No 01/02/2024 [employer] Answer Date Recorded Q1: How often do you have a drink containing alc ohol? Monthly or less 11/18/2023 Q2: How many drinks containi ng alcohol do you have on a typical day when you are drinking? 1 or 2 11/18/2023 Q3: How often do you have si x or more drinks on one occasion? Never 11/18/2023 Overall Financial Resource Strain (CARDIA) Answe r Date Recorded How hard is it for you to pa y for the very basics like food, housing, medical care, and heating? Not hard at all 11/18/2023 PHQ-2 Answer Date Recorded Total Score 0 11/18/2023 PRAPARE - Transportation Answer Date Re corded In the past 12 months, has l ack of transportation kept you from medical appointments or from getting medications? No 12/10 In the past 12 months, has l ack of transportation kept you from meetings, work, or from getting things needed for daily living? No 01/02/2024 Housing Instability Answer Date Recorde d Are you worried or concerned that in the next two months you may not have stable housing that you own, rent or stay in as a part of a household? No 01/02/2024 Childcare Answer Date Recorded Childcare Unknown 07/20/2018 Employment Answer Date Recorded Employment Unknown 07/20/2018 Hunger Screening Answer Date Recorded Within the past 12 months we worried whether our food would run out before we got money to buy more. Never True 02/24/2024 Within the past 12 months th e food we bought just didn't last and we didn't have money to get more. Never True 02/24/2024 Purpose - Life Answer Date Recorded Purpose and direction in life Unknown Comments No Sex and Gender Information Value Date Recorded Sex Assigned at Not on file Legal Sex Female 12:05 PM EDT Gender Identity Not on file Sexual Orientation Not on file Last Filed Vital Signs Vital Sign Reading Time Taken Comments Blood Pressure 132/52 02/24/2024 11:12 AM EST Pulse 72 02/24/2024 11:12 AM EST Temperature 36.5 C (97.7 F) 02/24/2024 11:12 AM EST Respiratory Rate 18 02/24/2024 11:12 AM EST Oxygen Saturation 98% 01/20/2024 10:39 AM EST Inhaled Oxygen Concentration - - Weight 68 kg (150 lb) 02/24/2024 11:12 AM EST Height 177 cm (5' 9.69 ) 02/24/2024 11:12 AM EST Body Mass Index 21.72 02/24/2024 11:12 AM EST Plan of Treatment Upcoming Encounters Date Type Department Care Team (Late st Contact Info) Description 08/18/2024 1:00 PM EDT Appointment [facility] [address] [place] [phone] Deuce Kirkland MD [address], [address] [address] 08/18/2024 2:00 PM EDT Appointment [facility] [address] [place] [phone] Deuce Kirkland MD [address], [address] [address] 08/31/2024 9:20 AM EDT [facility] [address] [place] [phone] Deuce Kirkland MD [address] , [address] [address] Health Maintenance Due Date Last Done Comments DTaP,Tdap and Td Vaccines (1 - Tdap) 09[birth year]29/1954 Zoster (Shingles) Vaccine (1 of 2) 1986 Fall Risk Screening 2001 COVID-19 Vaccine (2023-2 5 season) 2024 11/23/2023, 10/26/2022, 01/15/2022, Additional history exists Influenza Vaccine 10/09/2024 11/23/2023, , 01/15/2022, Additional history exists Depression Screening 11/17/2024 11/18/2023 Tobacco Screening 12/31/2024 01/01/2024 Goals Goal Patient Goal Type Associated Problems Recent Progress Patient-Stated? Author Daughter stated: Discharge to SNF and then back to independent living with resumption of home care,. General Yes Kelly Badillo, RN Note: Evaluation of progress towards goal: Medical Devices Implanted Type Area [employer] Device Identifier Shelf Expiration Date Model / Serial / Lot Graft Vsc 80cm 8mm [employer] Hero Thnwl Propaten Hep Ptfe Rem Rng - [id number] - [id number] Implanted:Qty: 1 on 01/01/2024 by Deuce Kirkland MD at [facility] Graft Right: Arterial [employer] Hero 09/29/2026 [id number] / [id number] / Description:RIGHT FEMORAL - POPLITEAL ARTERY Incv/Patch Cv 8x.8cm N-Pyrg Tpr End Photofix Decellularized Bvn Rpl [id number] Use [id number] - [id number] Implanted:Qty: 1 on 01/01/2024 by Deuce Kirkland MD at [facility] Graft Right: Arterial [employer] 06/11/2025 [id number] / / [id number] Description:RIGHT FEMORAL AR FINESSE Stent 7fr 135cm Vbx Ba Ppm Expandable Cath Hep Vbhn Eprsth 8 Rpl [id number] - [id number] - [id number] Implanted:Qty: 1 on 01/01/2024 by Deuce Kirkland MD at 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
--- OUTSIDE RECORDS SUMMARY | 2024-07-07 11:39 | XMS_ITS | Clinical Summary ---
Author Organization [facility] Address [address] [place] [address] Care Team Providers Care Senior Center Manager Name Role Phone Shirlene Vergara MD Primary Care Provider [phone] Allergies Active Allergy Reactions Criticality Noted Date [...] Active miscellaneous medical supply (Blood Pressure Cuff) miscIndications:Yodran ign hypertensive heart disease with heart failure (CMS/HCC) 1 kit in the morning and at bedtime. 1 each 08/17/2022 Active Additional Information Patient not taking.Reported on 03/02/2024 cholecalciferol, vitamin D3, 50 mcg (2,000 unit) capsule Take 1 tablet by mouth in the morning. Active clopidogrel (Plavix) 75 mg tabletIndications:C oronary artery disease, unspecified vessel or lesion type, unspecified whether angina present, unspecified whether [place] or transplanted heart TAKE 1 TABLET BY [...] (06/30/2022): Added automatically from request for surgery [id number] Closed fracture of neck of femur 06/07/2017 Family History Medical History Relation Name Comments Heart attack Father Aneurysm Mother Relation Name Status Comments Father Mother Social History Tobacco Use Types Packs/Day Years [...] Description 07/26/2024 2:20 PM EDT Office Visit [facility] [address] [place] [phone] Zeenat Arriola, PEDIATRIC PHYSICIAN [address] [place] [address] Health Maintenance Due Date Last Done Comments Medicare Annual Wellness (AWV) 1936 Depression Screening 1948 Adult Tetanus 1958 Zoster Vaccines (1 of 2) 1986 Fall Risk Screening 2001 Pneumococcal Vaccine: 65+ Years (2 of 2 - PCV) 11/08/2018 11/08/2017, 11/09/2014 COVID-19 Vaccine ( season) 2024 11/23/2023, 10/26/2022, 01/15/2022, Additional history exists Influenza Vaccine Completed 11/23/2023, , 01/15/2022, Additional history exists HIB Vaccines Aged Out No longer eligi ble based on patient's age to complete this topic HPV Vaccines Aged Out No longer eligi ble based on patient's age to complete this topic IPV Vaccines Aged Out No longer eligi ble based on patient's age to complete this topic Meningococcal B Vaccine Aged Out No l onger eligible based on patient's age to complete this topic Meningococcal Vaccine Aged Out No kristal aaron eligible based on patient's age to complete this topic Rotavirus Vaccines Aged Out No longer eligible based on patient's age to complete this topic Care Teams Senior Center Manager Relationship Specialty Start Date End Date Shirlene Vergara MD [address] [facility] PCP - General 12/05/21
--- OUTSIDE RECORDS SUMMARY | 2024-07-07 11:39 | XMS_ITS | Clinical Summary ---
Author Organization [facility] Address [address] [place] [address] Care Team Providers Care Gamma Ray Operator Name Role Phone Shirlene Vergara MD Primary Care Provider [phone] Allergies Active Allergy Reactions Criticality Noted Date Comments Diphenhydramine Unknown 07/18/2022 Ezetimibe Unknown 07/18/2022 Gemfibrozil Unknown 07/18/2022 H2 Antagonists 11/21/2021 Histamine 02/03/2013 Other Reaction(s): Other, Other: See Comments it wires me it wires me Levofloxacin 06/30/2022 Nsaids Unknown 07/18/2022 Promethazine Unknown,Other 02/03/2013 Made her shake very badly Propoxyphene Unknown 07/18/2022 Medications Menthol, Topical Analgesic, (Biofreeze) 4 % gel Biofreeze Active cholecalciferol (Vitamin D-3) 50 MCG (1999) capsule Take 1 tablet by mouth in the morning. Active simvastatin (Zocor) 40 MG tablet take 1 tablet by Oral route every day at bedtime Oral Active zinc 50 MG tablet Take 50 mg by mouth in the morning. Active acetaminophen (Tylenol) 500 MG tablet Take 1,000 mg by mouth every 6 (six) hours if needed. 01/08/20 Active acetaminophen (Tylenol) 325 MG tablet every 6 (six) hours. Active alosetron (Lotronex) 0.5 MG tablet TAKE 1/2 TABLET BY MOUTH EVERYDAY FOR 30 DAYS *HOLD IF CONSTIPATED* Active budesonide EC (Entocort EC) 3 MG [address] - ER 3 mg capsule,delayed,ex tended release Active estradiol (Estrace) 0.1 MG/GM vaginal cream INSERT 1 GRAM VAGINALLY TWICE A WEEK DIRECTED 06/15/19 Active melatonin 10 MG tablet Take 1 tablet by mouth at bedtime. Active metoprolol succinate XL (Toprol-XL) 50 MG 24 hr tablet Take 50 mg by mouth in the morning. 09/25/19 Active pantoprazole (ProtoNix) 40 MG EC tablet Take 40 mg by mouth in the morning. 11/05/19 22 Active spironolactone (Aldactone) 25 MG tablet spironolactone 25 mg tablet Active Vedolizumab (ENTYVIO IV) Infuse into a venous catheter. Active loperamide (Imodium A-D) 2 MG tablet Take by mouth 4 (four) times a day as needed for diarrhea. Active bismuth subsalicylate (Pepto Bismol) 262 MG chewable tablet Chew 524 mg in the morning and 524 mg at noon and 524 mg in the evening and 524 mg before bedtime. Chew before meals. Active Multiple Vitamins-Minerals (multivitamin with minerals) tablet Take 1 tablet by mouth in the morning. 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 05/17/2024 Hip bursitis, left 11/02/2022 Primary osteoarthritis of left hip 11/02/2022 Coronary artery disease with angina pectoris Essential hypertension 11/02/2022 Arthritis of right knee 11/02/2022 Internal derangement of right knee 11/02/2022 Other abnormalities of gait and mobility 023 Complete tear of right rotator cuff 11/02/2022 Closed fracture of neck of femur 06/07/2017 Encounters Date Type Department Care Team Description 05/17/2024 11:15 AM EDT Office Visit [facility] [place] [address] [place] [phone] Tyrese Girard MD Status post small bowel resection (Primary Dx); Ischemic enteritis (CMS/HCC) 05/17/2024 Travel 05/05/2024 Travel 05/03/[address] [address] [facility] [address] [address] Tyrese Girard MD 05/01/2024 External Result Encounter N[facility]S External Department Unsolicited Tyrese Girard MD 05/01/2024 External Result Encounter NOMS External Department Unsolicited Tyrese Girard MD 04/29/2024 Abstract [facility] EXT DEP Tyrese Girard MD 04/29/2024 External Result Encounter NOMS External Department Unsolicited Tyrese Girard MD 04/28/2024 Abstract [facility] EX[facility]P Tyrese Girard MD from Last 3 Months Immunizations Immunization Administration Dates Next Due Influenza, injectable, quadr ivalent, preservative free 11/02/2017,12/09/2016,10/10/2015 Pneumococcal Polysaccharide PPSV23 11/08/2017, Family History Relation Name Status Comments Brother 1 Alive Brother 2 Alive Brother 3 Alive Brother 4 Alive Brother 5 Brother 6 Brother 7 Daughter 1 Alive Daughter 2 Alive Father Mother Sister 1 Alive Sister 2 Sister 3 Sister 4 Son 1 Alive Son 2 Alive Social History Tobacco Use Types Packs/Day Years Used Date Smoking Tobacco: Never Smokeless Tobacco: Never Tobacco Cessation:Counseling Given: Not Answered Alcohol Use Standard Drinks/Week Comments Yes 0 (1 standard drink = 0.6 oz pur e alcohol) occasionally a glass of wine Comments Unknown Sex and Gender Information Value Date Recorded Sex Assigned at Not on file Legal Sex Female 7:17 PM EDT Gender Identity Not on file Sexual Orientation Not on file Last Filed Vital Signs Vital Sign Reading Time Taken Comments Blood Pressure 140/80 07/18/2022 12:25 PM EDT Pulse 59 07/18/2022 12:25 PM EDT Temperature 36.4 C (97.5 F) 07/18/2022 12:25 PM EDT Respiratory Rate - - Oxygen Saturation 95% 07/18/2022 12:25 PM EDT Inhaled Oxygen Concentration - - Weight 61.9 kg (136 lb 6.4 oz) 07/18/2022 12:25 PM EDT Height 172.7 cm (5' 8 ) 09/30/2021 12:00 PM EDT Body Mass Index 20.74 09/30/2021 12:00 PM EDT Plan of Treatment Health Maintenance Due Date Last Done Comments Pneumococcal Vaccine: 65+ Ye ars (2 of 2 - PCV) 11/08/2018 11/08/2017, 11/09/2014 Influenza Vaccine Completed 11/23/2023, , 01/15/2022, Additional history exists Procedures Procedure Name Priority Date/Time Associated Diagnosis Comments GENERAL PATHOLOGY Routine 05/03/2024 9:2 2 AM EDT LACTIC ACID, PLASMA Routine 05/01/2024 8 :44 AM EDT BASIC METABOLIC PANEL Routine 05/01/2024 5:29 AM EDT ANAEROBIC CULTURE Routine 04/29/2024 11: 17 AM EDT AEROBIC CULTURE Routine 04/29/2024 11:17 AM EDT GRAM STAIN Routine 04/29/2024 11:17 AM EDT from Last 3 Months Results * GENERAL PATHOLOGY (05/03/2024 9:22 AM EDT) Tyrese Christopher MD [facility] Final Result * Lactic acid, plasma (05/01/2024 8:44 AM EDT) LACTIC ACID 0.5 0.5 - 1.9 mmol/L 05/01/2024 9:08 AM EDT [facility] Comment: Lactic Acid reference range has been updated to 0.5 1.9 mmol/L and the critical range of 2.0 or greater. Other 05/01/2024 8:44 AM EDT 05/01/2024 8:48 AM EDT us Tyrese Christopher MD LAB BLOOD ORDERABLES Final R esult [facility] [address] [place] [address], [facility] [address] [place] [address] * (ABNORMAL) Basic metabolic panel (05/01/2024 5:29 AM EDT) Glucose 76 70 - 100 mg/dL 05/01/2024 6:26 AM EDT [facility] Comment: Random Glucose Reference Range is dependent on time and content of last meal. Glucose of more than 200 mg/dL in a nonstressed, ambulatory subject supports the diagnosis of Diabetes Mellitus. ADA recommended reference range BUN 40(H) 7 - 25 mg/dL 05/01/2024 6:26 AM EDT [facility] CREATININE 1.53(H) 0.60 - 1.20 mg/dL 05/01/2024 6:26 AM EDT [facility] ESTIMATED GFR 32.732 mL/Min 05/01/2024 6:26 AM EDT [facility] Sodium 139 136 - 145 mmol/L 05/01/2024 6:26 AM [facility] Potassium, Bld 4.3 3.5 - 5.1 mmol/L 05/01/2024 6:26 AM EDT [facility] Chloride 112(H) 98 - 107 mmol/L 05/01/2024 6:26 AM T [facility] Carbon Dioxide 23.5 21.0 - 31.0 mmol/L 05/01/2024 6:26 AM EDT [facility] Anion Gap 7.8 6.0 - 15.0 meq/L 05/01/2024 6:26 AM [facility] Calcium 7.8(L) 8.6 - 10.3 mg/dL 05/01/2024 6:26 AM EDT [facility] CREATININE CLR CALC PHARMACY 28.01 05/01/2024 6:26 AM [facility] Other Topography unknown / Unknown 05/01/2024 5:29 AM EDT 05/01/2024 5:34 AM EDT us Tyrese Christopher MD LAB BLOOD ORDERABLES Final R esult [facility] [address] [place] [address], [facility] [address] [place] [address] * ANAEROBIC CULTURE (04/29/2024 11:17 AM EDT) [facility] NOTE No Anaerobes Isolated 3 Days 05/02/2024 8:01 AM EDT [facility] Peritoneal Fluid (Ascites Fluid) 04/29/2024 11:17 AM EDT 04/29/2024 7:07 PM EDT [facility] - 05/02/2024 8:01 AM EDT SAMPLE SUBMITTED ON CULTURE SWAB Tyrese Christopher MD LAB BLOOD ORDERABLES Final R esult Performing Organization Address City/[facility]/ZIP Co de Phone Number [address] [address], [facility] [address] [place] [address] * AEROBIC CULTURE (04/29/2024 11:17 AM EDT) [facility] NOTE No Growth 2 Days 05/01/2024 10:05 AM EDT [facility] Peritoneal Fluid (Ascites Fluid) 04/29/2024 11:17 AM EDT 04/29/2024 7:07 PM EDT [facility] - 05/02/2024 8:01 AM EDT SAMPLE SUBMITTED ON CULTURE SWAB Tyrese Christopher MD LAB BLOOD ORDERABLES Final R esult [address] [address], [facility] [address] [place] [address] * (ABNORMAL) Gram stain (04/29/2024 11:17 AM EDT) [facility] GRAM STAIN Rare White Blood Cells(A) 04/29/2024 7:18 PM EDT [facility] GRAM STAIN No Epithelial Cells Seen 04/29/2024 7:18 PM EDT [facility] GRAM STAIN No Bacteria Seen 04/29/2024 7:18 PM EDT [facility] Peritoneal Fluid (Ascites Fluid) 04/29/2024 11:17 AM EDT 04/29/2024 7:07 PM EDT Narrative [facility] - 05/02/2024 8:01 AM EDT SAMPLE SUBMITTED ON CULTURE SWAB Tyrese Christopher MD LAB MICROBIOLOGY - GENERAL O RDERABLES Final Result [facility] [address] [place] [address], [facility] [address] [place] [address] from Last 3 Months Insurance MEDICARE [facility] Care Teams Gamma Ray Operator Relationship Specialty Start Date End Date Shirlene Vergara MD PCP - General Family Medicine 07/18/22
--- OUTSIDE RECORDS SUMMARY | 2024-07-07 11:39 | XMS_ITS | Encounter Summary ---
Author Organization [facility] Address [id number] [address] [place] [address] Care Team Providers Care Custom Shoe Designer And Maker Name Role Phone Shirlene Vergara MD Primary Care Provider [phone] Encounter Details Date Type Department Care Team (Late st Contact Info) Description 10/25/2023 Telephone [facility] [address] [place] [phone] Deuce Kirkland MD [address], [address] [address] Social History Tobacco Use Types Packs/Day Years Used Date Smoking Tobacco: Never Smokeless Tobacco: Never Alcohol Use Standard Drinks/Week Comments Defer 0 (1 standard drink = 0.6 oz pur e alcohol) Childcare Answer Date Recorded Childcare Unknown 07/20/2018 Employment Answer Date Recorded Employment Unknown 07/20/2018 Hunger Screening Answer Date Recorded Within the past 12 months we worried whether our food would run out before we got money to buy more. Never True 10/27/2023 Within the past 12 months th e food we bought just didn't last and we didn't have money to get more. Never True 10/27/2023 Purpose - Life Answer Date Recorded Purpose and direction in life Unknown Comments Unknown Sex and Gender Information Value Date Recorded Sex Assigned at Not on file Legal Sex Female 12:05 PM EDT Gender Identity Not on file Sexual Orientation Not on file documented as of this encounter Miscellaneous Notes * Telephone Encounter - Neha Dial - 10/25/2023 10:31 AM EDT Patient's daughter is calling for ultrasound results. I see testing ordered for now, and next follow up is not until June 2024. Please advise, Joanna can be reached at [phone] documented in this encounter Plan of Treatment Upcoming Encounters Date Type Department Care Team (Late st Contact Info) Description 08/18/2024 1:00 PM EDT Appointment [facility] - Vascular [address] [place] [phone] Deuce Kirkland MD [address], [address] [address] 08/18/2024 2:00 PM EDT Appointment [facility] Vascular [address] [place] [phone] Deuce Kirkland MD [address], [address] [address] 08/31/2024 9:20 AM EDT Office Visit [facility] Vascular Surgery [address] [place] [phone] Deuce Kirkland MD [address], [address] [address] documented as of this encounter Visit Diagnoses Not on filedocumented in this encounter Care Teams Custom Shoe Designer And Maker Relationship Specialty Start Date End Date Shirlene Vergara MD [address] [place] [address] PCP - General Family Medicine 04/10/22 documented as of this encounter
--- OUTSIDE RECORDS SUMMARY | 2024-07-07 11:40 | XMS_ITS | Encounter Summary ---
Author Organization [facility] Address [address] [place] [address] Care Team Providers Care Match Up Worker Name Role Phone Shirlene Vergara MD Primary Care Provider [phone] Encounter Details Date Type Department Care Team (Late st Contact Info) Description 05/03/[address] [facility] [address] [facility] [address] [place] [address] Tyrese Girard MD [address]03 [facility] [address] [place] [address] Social History Tobacco Use Types Packs/Day Years Used Date Smoking Tobacco: Never Smokeless Tobacco: Never Alcohol Use Standard Drinks/Week Comments Yes 0 (1 standard drink = 0.6 oz pur e alcohol) occasionally a glass of wine Comments Unknown Sex and Gender Information Value Date Recorded Sex Assigned at Not on file Legal Sex Female 7:17 PM EDT Gender Identity Not on file Sexual Orientation Not on file documented as of this encounter Plan of Treatment Not on file documented as of this encounter Procedures Procedure Name Priority Date/Time Associated Diagnosis Comments GENERAL PATHOLOGY Routine 05/03/2024 9:22 AM EDT documented in this encounter Results * GENERAL PATHOLOGY (05/03/2024 9:22 AM EDT) us Tyrese Christopher MD [facility] Final Result documented in this encounter Visit Diagnoses Not on filedocumented in this encounter Care Teams Match Up Worker Relationship Specialty Start Date End Date Shirlene Vergara MD PCP - General Family Medicine 07/18/22 documented as of this encounter
--- OUTSIDE RECORDS SUMMARY | 2024-07-07 11:40 | XMS_ITS | Encounter Summary ---
Author Organization [facility] Address [id number] [address] [place] [address] Care Team Providers Care Medical Illustrator Name Role Phone Shirlene Vergara MD Primary Care Provider [phone] Encounter Details Date Type Department Care Team (Late Contact Info) Description 12/29/2021 Orders Only [facility] [address] [place] [address] Marlen De La Rosa CMA Social History Tobacco Use Types Packs/Day Years Used Date Smoking Tobacco: Never Smokeless Tobacco: Never Alcohol Use Standard Drinks/Week Comments Defer 0 (1 standard drink = 0.6 oz pur e alcohol) Childcare Answer Date Recorded Childcare Unknown 07/20/2018 Employment Answer Date Recorded Employment Unknown 07/20/2018 Purpose - Life Answer Date Recorded Purpose and direction in life Unknown Comments Unknown Sex and Gender Information Value Date Recorded Sex Assigned at Not on file Legal Sex Female 12:05 PM EDT Gender Identity Not on file Sexual Orientation Not on file COVID-19 Exposure Response Date Recorded In the last month, have you been in contact with someone who was confirmed or suspected to have Coronavirus / COVID-19? No / Unsure 12/18/2021 9:39 AM EST documented as of this encounter Plan of Treatment Upcoming Encounters Date Type Department Care Team (Late Contact Info) Description 08/18/2024 1:00 PM EDT Appointment [facility] - Vascular [address] [place] [address] Deuce Kirkland MD [address], [address] [address] 08/18/2024 2:00 PM EDT Appointment [facility] - Vascular [address] [place] [address] Deuce Kirkland MD [address], [address] [address] 08/31/2024 9:20 AM EDT Office Visit [facility] V[facility] Surgery [address] [place] [phone] Deuce Kirkland MD [address], [address] [address] documented as of this encounter Visit Diagnoses Not on filedocumented in this encounter Care Teams Medical Illustrator Relationship Specialty Start Date End Date Shirlene Vergara MD [address] [place] [address] PCP - General Family Medicine 04/10/22 documented as of this encounter
--- OUTSIDE RECORDS SUMMARY | 2024-07-07 11:40 | XMS_ITS | Encounter Summary ---
Author Organization [facility] Address [facility] [id number] [address] [place] [address] Care Team Providers Care Network Coordinator Name Role Phone Shirlene Vergara MD Primary Care Provider [phone] Encounter Details Date Type Department Care Team (Late st Contact Info) Description 10/18/2023 Telephone [facility] [address] [place] [phone] Deuce Kirkland MD [address], [address] [address] Social History Tobacco Use Types Packs/Day Years [...] got money to buy more. Never True 10/14/2023 Within the past 12 months th e food we bought just didn't last and we didn't have money to get more. Never True 10/14/2023 Purpose - Life Answer Date Recorded Purpose and direction in life Unknown Comments Unknown Sex and Gender Information Value Date Recorded Sex Assigned at Not on file Legal Sex Female 12:05 PM EDT Gender Identity Not on file Sexual Orientation Not on file documented as of this encounter Miscellaneous Notes * Telephone Encounter - Neha Dial - 10/18/2023 9:01 AM EDT Good morning Lainey- this patient's daughter is calling because she thought Dr was goingto be scheduling her for a 'procedure' but [facility] called her and scheduled her for a reflux 'insufficiency' ultrasound. She just wants to make sure they were supposed to be scheduled the u/s first and then the procedure will be scheduled after that. Can you just double check with Dr Kirkland when you get a chance pretty please. She is 88 and her daughter is not crazy about taking her around unnecessarily. Thank you- Joanna can be reached at [phone] if we need to make any adjustments. * Telephone Encounter - Citlali Garcia CMA - 10/18/2023 9:01 AM EDT Thank you , I called daughter back documented in this encounter Plan of Treatment Upcoming Encounters Date Type Department Care Team (Late st Contact Info) Description 08/18/2024 1:00 PM EDT Appointment [facility] [address] [place] [phone] Deuce Kirkland MD [address], [address] [address] 08/18/2024 2:00 PM EDT Appointment [facility] [address] [place] [phone] Deuce Kirkland MD [address], [facility] [address] [place] [address] 08/31/2024 9:20 AM EDT Office Visit [facility] [address] [place] [address] Deuce Kirkland MD [address], [address] [address] documented as of this encounter Visit Diagnoses Not on filedocumented in this encounter Care Teams Network Coordinator Relationship Specialty Start Date End Date Shirlene Vergara MD [address] [place] [phone] PCP - General Family Medicine 04/10/22 documented as of this encounter
--- OUTSIDE RECORDS SUMMARY | 2024-07-07 11:40 | XMS_ITS | Encounter Summary ---
Author Organization [facility] Address [id number] [address] [place] [address] Care Team Providers Care Naval Science Teacher Name Role Phone Shirlene Vergara MD Primary Care Provider Encounter Details Date Type Department Care Team (Late st Contact Info) Description 10/19/2023 Orders Only [facility] [address] [place] [address] Deuce Kirkland MD [address], [facility] [address] [place] [address] Social History Tobacco Use Types Packs/Day Years [...] Info) Description 08/18/2024 1:00 PM EDT Appointment [facility] - Vascular [address] [place] [address] Deuce Kirkland MD [address], [facility] [address] [place] [address] 08/18/2024 2:00 PM EDT Appointment [facility] [address] [place] [address] Deuce Kirkland MD [address], [facility] [address] [place] [address] 08/31/2024 9:20 AM EDT Office Visit [facility] Surgery [address] [place] [phone] Deuce Kirkland MD [address], [facility] [address] [place] [address] documented as of this encounter Procedures Procedure Name Priority Date/Time Associated Diagnosis Comments VASC ARTERIAL DUPLEX LOWER BILATERAL Routine 09/16/2023 9:23 AM EDT documented in this encounter Results * Vas art duplex lwr bilateral (09/16/2023 9:23 AM EDT) Anatomical Region Laterality Modality Vascular Bilateral Ultrasound us Deuce Kirkland MD CV VASCULAR ORDERABLES Final Result documented in this encounter Visit Diagnoses Not on filedocumented in this encounter Care Teams Naval Science Teacher Relationship Specialty Start Date End Date Shirlene Vergara MD [address] [place] [address] PCP - General Family Medicine 04/10/22 documented as of this encounter
--- OUTSIDE RECORDS SUMMARY | 2024-07-07 11:40 | XMS_ITS | Encounter Summary ---
Author Organization [facility] [employer] [facility] [employer] Address [facility] [id number] [address] [place] [address] Care Team Providers Care Curator Herbarium Name Role Phone Shirlene Vergara MD Primary Care Provider [phone] Encounter Details Date Type Department Care Team (Late st Contact Info) Description 10/04/2023 Telephone [facility] [address] [place] [address] Patience Danielle CMA Social History Tobacco Use Types Packs/Day [...] got money to buy more. Never True 06/17/2023 Within the past 12 months th e food we bought just didn't last and we didn't have money to get more. Never True 06/17/2023 Purpose - Life Answer Date Recorded Purpose and direction in life Unknown Comments Unknown Sex and Gender Information Value Date Recorded Sex Assigned at Not on file Legal Sex Female 12:05 PM EDT Gender Identity Not on file Sexual Orientation Not on file documented as of this encounter Miscellaneous Notes * Telephone Encounter - Patience Danielle CMA - 10/04/2023 11:21 AM EDT Patient daughter called and stated she was wondering if someone would give her a call to follow up with her test results that is scanned into media. Daughter name and number is Joanna [phone] documented in this encounter Plan of Treatment Upcoming Encounters Date Type Department Care Team (Late st Contact Info) Description 08/18/2024 1:00 PM EDT Appointment [facility] Vascular [address] [place] [phone] Deuce Kirkland MD [address], [address] [address] 08/18/2024 2:00 PM EDT Appointment [facility] [address] [place] [address] Deuce Kirkland MD [address], [address] [address] 08/31/2024 9:20 AM EDT Office Visit [facility] Surgery [address] [place] [phone] Deuce Kirkland MD [address], [address] [address] documented as of this encounter Visit Diagnoses Not on filedocumented in this encounter Care Teams Curator Herbarium Relationship Specialty Start Date End Date Shirlene Vergara MD [address] [place] [phone] PCP - General Family Medicine 04/10/22 documented as of this encounter
--- OUTSIDE RECORDS SUMMARY | 2024-07-07 11:40 | XMS_ITS | Encounter Summary ---
Author Organization [facility] Address [address] [place] [address] Care Team Providers Care Bi Tri Operator Name Role Phone Shirlene Vergara MD Primary Care Provider [phone] Encounter Details Date Type Department Care Team (Latest Contact Info) Description 04/29/2024 Abstract [facility] EXT [facility]P Tyrese Girard MD [address] [address] Social History Tobacco Use Types Packs/Day Years [...] on file documented as of this encounter Visit Diagnoses Not on filedocumented in this encounter Care Teams Bi Tri Operator Relationship Specialty Start Date End Date Shirlene Vergara MD PCP - General Family Medicine 07/18/22 documented as of this encounter
--- OUTSIDE RECORDS SUMMARY | 2024-07-07 11:40 | XMS_ITS | Encounter Summary ---
Author Organization [facility] Address [id number] [address] [place] [address] Care Team Providers Care Director Private Name Role Phone Shirlene Vergara MD Primary Care Provider [phone] Encounter Details Date Type Department Care Team (Late st Contact Info) Description 11/25/2023 Orders Only [facility] [address] [place] [address] Deuce Kirkland MD [address], [facility] [address] [place] [address] Social History Tobacco Use Types Packs/Day Years Used Date Smoking Tobacco: Former Cigarettes Smokeless Tobacco: Never Comments:QUIT IN 1989 Alcohol Use Standard Drinks/Week Comments Yes 1 (1 standard drink = 0.6 oz pur e alcohol) [facility] Utilities Answer Date Recorded In the past 12 months has [employer] electric, gas, oil, or water company threatened to shut off services in your home? No 11/18/2023 AUDIT-C Answer Date Recorded Q1: How often [...] medical appointments or from getting medications? No 11/08 In the past 12 months, has l ack of transportation kept you from meetings, work, or from getting things needed for daily living? No 11/18/2023 Housing Instability Answer Date Recorde d Are you worried or concerned that in the next two months you may not have stable housing that you own, rent or stay in as a part of a household? No 11/18/2023 Childcare Answer Date Recorded Childcare Unknown 07/20/2018 Employment Answer Date Recorded Employment Unknown 07/20/2018 Hunger Screening Answer Date Recorded Within the past 12 months we worried whether our food would run out before we got money to buy more. Never True 11/18/2023 Within the past 12 months th e food we bought just didn't last and we didn't have money to get more. Never True 11/18/2023 Purpose - Life Answer Date Recorded Purpose [...] Info) Description 08/18/2024 1:00 PM EDT Appointment [facility] Vascular [address] [place] [phone] Deuce Kirkland MD [address], [address] [address] 08/18/2024 2:00 PM EDT Appointment [facility] Vascular [address] [place] [address] Deuce Kirkland MD [address], [facility] [address] [place] [address] 08/31/2024 9:20 AM EDT Office Visit [facility] Surgery [address] [place] [address] Deuce Kirkland MD [address], [facility] [address] [place] [address] documented as of this encounter Procedures Procedure Name Priority Date/Time Associated Diagnosis Comments VASC ARTERIAL DUPLEX LOWER BILATERAL Routine 09/16/2023 2:52 PM EDT documented in this encounter Results * Vas art duplex lwr bilateral (09/16/2023 2:52 PM EDT) Anatomical Region Laterality Modality Vascular Bilateral Ultrasound Deuce Kirkland MD CV VASCULAR ORDERABLES Final Result documented in this encounter Visit Diagnoses Not on filedocumented in this encounter Additional Health Concerns Assessment Noted Time PHQ-9 Depression Total Score: 0 11/18/19 9:33 PM EDT documented as of this encounter Care Teams Director Private Relationship Specialty Start Date End Date Shirlene Vergara MD [facility] [place] [address] PCP - General Family Medicine 04/10/22 documented as of this encounter
--- OUTSIDE RECORDS SUMMARY | 2024-07-07 11:40 | XMS_ITS | Encounter Summary ---
Author Organization [facility] tem Address [id number] [address] [place] [address] Care Team Providers Care Grain Handler Name Role Phone Shirlene Vergara MD Primary Care Provider [phone] Encounter Details Date Type Department Care Team (Late st Contact Info) Description 01/02/2024 Orders Only [facility] - GEN 2 ICU [address] [place] [address] Shanique Conway, RN Social History Tobacco Use Types Packs/Day Years Used Date Smoking Tobacco: Former Cigarettes Q uit: 12/30/1993 Smokeless Tobacco: Never Comments:QUIT IN 1989 Alcohol Use Standard Drinks/Week Comments Yes 1 (1 standard drink = 0.6 oz pur e alcohol) monthly [facility] Utilities Answer Date Recorded In the past 12 months has [employer], gas, oil, or water [employer] threatened to shut off services in your [...] got money to buy more. Never True 01/02/2024 Within the past 12 months th e food we bought just didn't last and we didn't have money to get more. Never True 01/02/2024 Purpose - Life Answer Date Recorded Purpose and direction in life Unknown Comments No Sex and Gender Information Value Date Recorded Sex Assigned at Not on file Legal Sex Female 12:05 PM EDT Gender Identity Not on file Sexual Orientation Not on file documented as of this encounter Functional Status * Question Answer Date of Assessment Author Functional Status Assistive device 01/02/2024 12:35 PM Kena Brown RN * Intimate Partner Violence Question Answer Date of Assessment Author Within the last year, have y ou been humiliated or emotionally abused in other ways by your partner or ex-partner? No 01/02/2024 12:38 PM Derik Brown RN Within the last year, have y ou been afraid of your partner or ex-partner? No 01/02/2024 12:38 PM Kena Brown RN Within the last year, have y ou been raped or forced to have any kind of sexual activity by your partner or ex-partner? No 01/02/2024 12:38 PM Derik Brown RN Within the last year, have y ou been kicked, hit, slapped, or otherwise physically hurt by your partner or ex-partner? No 01/02/2024 12:38 PM Derik Brown RN documented as of this encounter Mental Status * Question Answer Entry Date Author Overall Cognitive Status X 01/04/2024 8:35 AM Lila Campos OTR/L documented in this encounter Plan of Treatment Upcoming Encounters Date Type Department Care Team (Late st Contact Info) Description 08/18/2024 1:00 PM EDT Appointment [facility] Vascular [place] [address] Deuce Kirkland MD [address], [address] [address] 08/18/2024 2:00 PM EDT Appointment [place] [address] [place] [address] Deuce Kirkland MD [address], [facility] [address] [place] [address] 08/31/2024 9:20 AM EDT Office Visit [facility] Vascular Surgery [address] [place] [address] Deuce Kirkland MD [address], [address] [address] documented as of this encounter Goals Goal Patient Goal Type Associated Problems Recent Progress Patient-Stated? Author Daughter stated: Discharge to SNF and then back to independent living with resumption of home care,. General Yes Kelly Badillo, KAYLYNN Note: Evaluation of progress towards goal: documented as of this encounter Visit Diagnoses Not on filedocumented in this encounter Additional Health Concerns Assessment Noted Time PHQ-9 Depression Total Score: 0 11/18/19 9:33 PM EDT documented as of this encounter Care Teams Grain Handler Relationship Specialty Start Date End Date Shirlene Vergara MD [address] [place] [address] PCP - General Family Medicine 04/10/22 documented as of this encounter
--- OUTSIDE RECORDS SUMMARY | 2024-07-07 11:40 | XMS_ITS | Patient Health Record ---
Author Organization [facility] [place] Address [address] [place] [address] Care Team Providers Care Golf Ball Molder Name Role Phone Shirlene Vergara Primary Care Provider Twila Fountain Unavailable [phone] Allergies Allergen (clinical drug ingredient) Drug/Non Drug Allergy documented on EMR Reaction Allergy Type Onset Date Status diphenhydramine Benadryl Unknown Drug Allergy A ctive Darvocet-N 100 Unknown Drug Allergy Ac tive gemfibrozil Lopid Unknown Drug Allergy Activ e promethazine Phenergan Unknown Drug Allergy Acti ve ezetimibe Zetia Unknown Drug Allergy Active Non-steroidal anti-inflammatory agent (FN) NSAIDs Unknown Drug Allergy Active Results Component Value Reference Range Notes XR ankle RT min 3V (Not yet reviewed by provider) Interpretation: Performing Lab: Notes/Report: Source Facility: [place] [address] [place] [address] XRay Report Signed Patient: SAGE SANDERSON MR#: [id number] : 1935 Acct:[id number] Age/Sex: 87 / F ADM Date: 09/10/23 Loc: WC Attending Dr: Agustin Avila D.P.M. Ordering Physician: Agustin Avila D.P.M. Date of Service: 09/10/23 Procedure(s): XR ankle RT min 3V Accession Number(s): [id number] cc: Shirlene Vergara M.D.; Agustin Avila D.P.M. The [address] [address] Patient Name: SAGE SANDERSON MRN: [id number] date: 1935 Sex: F Assigned Patient Location: Current Patient Location: Accession/Order Number: [id number] Exam Date: 09/10/2023 12:20 Report Date: 09/11/2023 06:07 At the request of: AGUSTIN AVILA Procedure: XR ankle RT min 3V PROCEDURE: XR ankle RT min 3V HISTORY: RIGHT ANKLE PAIN ; stress fracture? COMPARISON: None. FINDINGS: BONES:No fracture, acute abnormality, or significant arthropathy. SOFT TISSUES:Mild soft tissue swelling surrounding the ankle. EFFUSION:None visible. OTHER: Negative. XR/XR ankle RT min 3V IMPRESSION: 1. No acute bone abnormality or evidence of stress fracture. Electronically authenticated by: LUL RODRIGUEZ Date: 09/11/2023 06:07 Dictated By: Lul Rodriguez M.D. Signed By: 09/11/2310 DD/ 6 TD/TT: Communications Project Manager: [place] [address] XRay Report Signed Patient: SAGE SANDERSON MR#: [id number] : 1935 Acct:[id number] Age/Sex: 87 / F ADM Date: 09/10/23 Loc: Attending Dr: Agustin Avila D.P.M. Ordering Physician: Agustin Avila D.P.M. Date of Service: 09/10/23 Procedure(s): XR ankle RT min 3V Accession Number(s): [id number] cc: Shirlene Vergara; Agustin Avila D.P.M. [place] [address] Patient Name: SAGE SANDERSON MRN: [id number] date: 1935 Sex: F Assigned Patient Location: Current Patient Location: Accession/Order Numb er: [id number] Exam Date: 09/10/2023 12:20 Report Date: 09/11/2023 06:07 At the request of: AGUSTIN AVILA Procedure: XR ankle RT min 3V PROCEDURE: XR ankle RT min 3V HISTORY: RIGHT ANKLE PAIN ; stress fracture? COMPARISON: None. FINDINGS: BONES:No fracture, a cute abnormality, or significant arthropathy. SOFT TISSUES:Mild so ft tissue swelling surrounding the ankle. EFFUSION:None visible. OTHER: Negative. X R/XR ankle RT min 3V IMPRESSION: 1. No acute bone abn ormality or evidence of stress fracture. Electronically authe nticated by: LUL RODRIGUEZ Date: 09/11/2023 06:07 Dictated By: Lul Rodriguez M.D. Signed By: 09/11/23609 DD/ 6 TD/TT: Communications Project Manager: US arterial duplex LE RT (No t yet reviewed by provider) Interpretation: Performing Lab: Notes/Report: Source Facility: [place] [address] Ultrasound Report Signed Patient: SAGE SANDERSON MR#: [id number] : 1935 Acct:[id number] Age/Sex: 87 / F ADM Date: 09/16/23 Loc: US Attending Dr: Agustin Avila D.P.M. Ordering Physician: Agustin Avila D.P.M. Date of Service: 09/16/23 Procedure(s): US arterial duplex LE BI Accession Number(s): [id number] cc: Shirlene Vergara M.D.; Agustin Avila D.P.M. [place] [address] Patient Name: SAGE SANDERSON MRN: [id number] date: 1935 Sex: F Assigned Patient Location: US Current Patient Location: US Accession/Order Number: [id number] Exam Date: 09/16/2023 10:00 Report Date: 09/16/2023 12:32 At the request of: AGUSTIN AVILA Procedure: US arterial duplex LE BI EXAM: US arterial duplex LE BI. HISTORY: Ulcer, Peripheral Artery Disease. COMPARISON: None. TECHNIQUE: Alcantar-scale, color Doppler, spectral Doppler waveform analysis was used to evaluate the bilateral lower extremity arteries. FINDINGS: Plaque was noted bilaterally. Color-flow was seen. Waveforms are monophasic. Right lower extremity: No significant velocity elevations were seen to suggest a significant stenosis. Left lower extremity: Elevated velocity was seen within the mid and distal left superficial femoral artery suggesting a significant stenosis. No flow is visualized within the midportion of the left anterior tibial artery. US/US arterial duplex LE BI IMPRESSION: 1. Calcified plaque bilaterally. 2. Monophasic waveforms throughout. Inflow disease cannot be excluded. 3. 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 4. Probable significant stenosis within the mid and distal left superficial femoral artery as evidenced by elevated velocity. Electronically authenticated by: Fernando DELCID Date: 09/16/2023 12:32 Dictated By: Fernando Delcid M.D. Signed By: 09/16/23 1234 DD/ 1232 TD/TT: Communications Project Manager: [place] [address] Ultrasound Report Signed Patient: SAGE SANDERSON MR#: [id number] : 1935 Acct:[id number] Age/Sex: 87 / F ADM Date: 09/16/23 Loc: US Attending Dr: Agustin Avila D.P.M. Ordering Physician: Agustin Avila D.P.M. Date of Service: 09/16/23 Procedure(s): US art erial duplex LE BI Accession Number(s): [id number] cc: Shirlene Vergara; Agustin Avila D.P.M. [place] [id number] Patient Name: SAGE SANDERSON MRN: [id number] date: 1935 Sex: F Assigned Patient Location: US Current Patient Location: US Accession/Order Numb er: [id number] Exam Date: 09/16/2023 10:00 Report Date: 09/16/2023 12:32 At the request of: AGUSTIN AVILA Procedure: US arteri al duplex LE BI EXAM: US arterial duplex LE BI. HISTORY: Ulcer, Gertrude pheral Artery Disease. COMPARISON: None. TECHNIQUE: Alcantar-scal e, color Doppler, spectral Doppler waveform analysis was used to evaluate the bilateral lower extremity arteries. FINDINGS: Plaque was noted bilaterally. Color-flow was seen. Waveforms are monophasic. Right lower extremity: No significant veloc ity elevations were seen to suggest a significant stenosis. Left lower extremity: Elevated velocity wa s seen within the mid and distal left superficial femoral artery suggesting a significant stenosis. No flow is visualized within the midportion of the le ft anterior tibial artery. U S/US arterial duplex LE BI IMPRESSION: 1. Calcified plaque bilaterally. 2. Monophasic wavefo cathleen throughout. Inflow disease cannot be excluded. 3. 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 4. Probable signific ant stenosis within the mid and distal left superficial femoral artery as ev idenced by elevated velocity. Electronically authe nticated by: Fernando DELCID Date: 09/16/2023 12:32 Dictated By: Fernando Delcid M.D. Signed By: 09/16/23 1234 DD/ 1232 TD/TT: Communications Project Manager: Reason For Referral No Information Social History Tobacco Use: Social History Observation Description Date Details (start date - stop date) Never Smoker NA - NA Tobacco Use/Smoking Question Answer Notes Patient is a nonsmoker Problems Problem Type SNOMED Code ICD Code Onset Dates Problem Status W/U Status Risk Notes Problem 566210676 Peripheral vascu lar disease, unspecified (I73.9) Active confirmed Problem 566992988 Elevated white blood cell count, unspecified (D72.829) Active confirmed Problem 41954901 Venous insufficiency (chronic) (peripheral) (I87.2) Active confirmed Problem 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) (583418448631224) 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 (I87.311) Active confirmed Problem Ingrowing nail (785115669) Ingrowing nail (L60.0) Active confirmed Problem Chronic ulcer of lower extremity (65112630) Non-pressure chronic ulcer of other part of right lower leg limited to breakdown of skin (L97.811) Active confirmed Problem 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 level (10361566358990092) Non-pressure chronic ulcer of other part of right lower leg with fat layer exposed (L97.812) Active confirmed Problem Gastroesophageal reflux disease (674501654) GERD (gastroesophageal reflux disease) (K21.9) Active confirmed Problem Coronary artery disease (91649553) CAD (coronary artery disease) (I25.10) Active confirmed Problem Hypertension (37235517) HTN (hypertension) (I10) Active confirmed Problem Peripheral vascular disease (983183334) Other peripheral vascular disease (I73.89) Active confirmed Problem Chronic venous 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 (I87.333) Active confirmed Problem Essential hypertension (41676985) BP (high blood pressure) (I10) Active confirmed Problem 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) Active confirmed Problem Non-pressure chronic ulcer of right lower leg, limited to breakdown of skin (L97.911) Active confirmed Problem Unstageable pressure injury of right heel (disorder) (68841111545982026) Pressure injury of right heel, unstageable (L89.610) Active confirmed Problem Patient immunocompromised (908558711) 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) Active confirmed Problem Chronic ulcer of right heel (disorder) (09459001712830866) Chronic ulcer of right heel limited to breakdown of skin (L97.411) Active confirmed Plan Of Treatment Pending Test Test Name Order Date XR ankle RT min 3V 09/11/2023 US arterial duplex LE RT 09/16/2023 Insurance Providers Payer Name Payer Address Payer Phone Subscriber Number Group Number Insured Name Patient Relationship to Insured Coverage Start Date Coverage End Date [place] [address] [place] [address] [id number] Sage Sanderson Self - patient is the insured 2 [employer] [place] P[place] [address] [place] [address] [phone] [id number] Sage Sanderson Self - patient is the insured 0
--- OUTSIDE RECORDS SUMMARY | 2024-07-07 11:40 | XMS_ITS | Encounter Summary ---
Author Organization [facility] Address [id number] [address] [place] [place] [address] Care Team Providers Care Traveling Operator Name Role Phone Shirlene Vergara MD Primary Care Provider [phone] Encounter Details Date Type Department Care Team (Late st Contact Info) Description 11/17/2023 Orders Only [facility] [address] [facility] [address] [place] [address] Deuce Kirkland MD [address], [facility] [address] [place] [address] Social History Tobacco Use Types Packs/Day Years Used Date Smoking Tobacco: Former Cigarettes Smokeless Tobacco: Never Comments:QUIT IN 1989 Alcohol Use Standard Drinks/Week Comments Yes 1 (1 standard drink = 0.6 oz pur e alcohol) [facility] Utilities Answer Date Recorded In the past 12 months has [employer], gas, oil, or water company threatened [...] as of this encounter Functional Status * Audit-C Score Answer Date of Assessment Author 1 11/18/2023 9:33 PM Gigi Steele RN * Intimate Partner Violence Question Answer Date of Assessment Author Within the last year, have y ou been humiliated or emotionally abused in other ways by your partner or ex-partner? No 11/18/2023 9:33 PM Adriana Steele RN Within the last year, have y ou been afraid of your partner or ex-partner? No 11/18/2023 9:33 PM Gigi Steele RN Within the last year, have y ou been raped or forced to have any kind of sexual activity by your partner or ex-partner? No 11/18/2023 9:33 PM EDT Adriana Collier RN Within the last year, have y ou been kicked, hit, slapped, or otherwise physically hurt by your partner or ex-partner? No 11/18/2023 9:33 PM EDT Bayron Collier RN * Question Answer Date of Assessment Author Q1: How often do you have a drink containing alcohol? Monthly or less 11/18/2023 9:33 PM EDT Gigi Collier RN Q2: How many drinks containing alcohol do you have on a typical day when you are drinking? 1 or 2 11/18/2023 9:33 PM EDT Gigi Collier RN Q3: How often do you have six or more drinks on one occasion? Never 11/18/2023 9:33 PM EDT Gigi Collier RN * Question Answer Date of Assessment Author Functional Status Independent 11/18/2023 9:35 PM EDT Gigi Collier RN documented as of this encounter Plan of Treatment Upcoming Encounters Date Type Department Care Team (Late st Contact Info) Description 08/18/2024 1:00 PM EDT Appointment [facility] Vascular [facility] [place] [phone] Deuce Kirkland MD [address], [address] [address] 08/18/2024 2:00 PM EDT Appointment [place] [address] [place] [address] Deuce Kirkland MD [address], [facility] [address] [place] [address] 08/31/2024 9:20 AM EDT Office Visit [facility] Vascular Surgery [address] [place] [address] Deuce Kirkland MD [address], [facility] [address] [place] [address] documented as of this encounter Procedures Procedure Name Priority Date/Time Associated Diagnosis Comments VASC ARTERIAL DOPPLER LOWER BILATERAL MULTI LEVEL/PVR Routine 09/16/2023 2:49 PM EDT documented in this encounter Results * Vas art doppler lwr bilat mult lev/PVR (09/16/2023 2:49 PM EDT) Anatomical Region Laterality Modality Vascular Bilateral Ultrasound us Deuce Kirkland MD CV VASCULAR ORDERABLES Final Result documented in this encounter Visit Diagnoses Not on filedocumented in this encounter Care Teams Traveling Operator Relationship Specialty Start Date End Date Shirlene Vergara MD [address] [place] [address] PCP - General Family Medicine 04/10/22 documented as of this encounter
--- OUTSIDE RECORDS SUMMARY | 2024-07-07 11:40 | XMS_ITS | Encounter Summary ---
Author Organization [facility] Address [address] [place] [address] Care Team Providers Care Electric Drill Operator Name Role Phone Shirlene Vergara MD Primary Care Provider [phone] Encounter Details Date Type Department Care Team (Latest Contact Info) Description 04/28/2024 Abstract [facility]P Tyrese Girard MD [address] [address] Social History Tobacco Use Types Packs/Day Years [...] on filedocumented in this encounter Care Teams Electric Drill Operator Relationship Specialty Start Date End Date Shirlene Vergara MD PCP - General Family Medicine 07/18/22 documented as of this encounter
[2024-07-07 11:44] VITALS: BP 134/69; PULSE 65; TEMP 36.3; O2SAT 97; BMI 19.4
--- NOTE | 2024-07-07 12:14 | XR_ITS ---
The [address] [address] Patient Name: SAGE HSU MRN: [id number] date: 1935 Sex: F Assigned Patient Location: ER Current Patient Location: ER Accession/Order Number: [id number] Exam Date: 07/07/2024 12:45 Report Date: 07/07/2024 12:48 At the request of: SHAKIRA BEAVER MD Procedure: XR chest 1V PORTABLE AP ERECT CHEST 1207 hours CLINICAL HISTORY: Patient fell out of bed this morning COMPARISON: CT 04/28/2024 and chest x-ray 03/30/2024 There are median sternotomy wires. The heart is borderline enlarged. There is no vascular congestion. The left hemidiaphragm is slightly elevated. There may be minimal scarring or atelectasis. No focal consolidation or pleural effusion is seen in the field of view. No pneumothorax is noted. The bony structures are osteopenic. XR/XR chest 1V IMPRESSION: BORDERLINE CARDIOMEGALY. NO ACUTE FINDINGS Impression dictated by: Suzy Marquis M.D. 07/07/2024 12:48 PM Dictation Location: [place] [address] Electronically authenticated by: [id number] Y Date: 07/07/2024 12:48
--- NOTE | 2024-07-07 12:14 | ECG_ITS ---
The [facility] Test Date: 2024-07-07 Pat Name: SAGE HSU Department: Room: - Gender: Female Special Events Coordinator: : 1935 Requested By: 0919 Order Number: [id number] Reading MD: TYE TEMPLE M.D. Measurements Intervals Coleridge Rate: 59 P: 60 NE: 184 QRS: -71 QRSD: 136 T: 41 QT: 418 QTc: 418 Interpretive Statements 1100 Sinus rhythm 2450 Right bundle branch block 2630 Left anterior fascicular block 5233 Voltage criteria for LVH 9150 abnormal ECG Compared to ECG 07/07/2024 12:35:35 No significant changes Electronically Signed On 07-07-2024 17:34:57 EDT by TYE TEMPLE M.D.
--- NOTE | 2024-07-07 12:14 | CT_ITS ---
The [address] [address] Patient Name: SAGE HSU MRN: [id number] date: 1935 Sex: F Assigned Patient Location: ER Current Patient Location: Accession/Order Number: [id number] Exam Date: 07/07/2024 12:39 Report Date: 07/07/2024 12:45 At the request of: SHAKIRA BEAVER MD Procedure: CT head/brain wo con CT BRAIN WITHOUT CONTRAST: CLINICAL HISTORY: Patient fell out of bed this morning. Confusion. History of blood thinners. COMPARISON: 04/07/2024 TECHNIQUE: Contiguous axial unenhanced images were obtained through the brain. This CT exam was performed using one or more following dose reduction techniques: Automated exposure control, adjustment of the mA and/or kV according to patient size, or use of iterative reconstruction technique. FINDINGS: There is generalized atrophy. The ventricles are stable in size and position. Moderate microvascular changes are noted. There are no additional areas of abnormal attenuation. There is no hemorrhage, mass effect or extra-axial collections. The calvarium is intact. Minor mucosal thickening is again seen at some of the paranasal sinuses. There are also possible small osteomas at the right sphenoid sinus and one of the left ethmoid air cells. A right chris bullosa is noted. There is carotid siphon and vertebral artery plaque. CT/CT head/brain wo con IMPRESSION: ATROPHY AND CHRONIC MICROVASCULAR DISEASE. MINOR CHRONIC SINUSITIS. NO ACUTE INTRACRANIAL TRAUMA. Impression dictated by: Suzy Marquis M.D. 07/07/2024 12:45 PM Dictation Location: [place] [address] Electronically authenticated by: [id number] Y Date: 07/07/2024 12:45
--- NOTE | 2024-07-07 12:23 | PC.NURSE ---
pt to ED via stretcher at this time with [facility].
[2024-07-07 12:37] LABS: Hematocrit 30.8 % (36.0-48.0); Hemoglobin 9.7 g/dL (12.0-16.0); Mean Corpuscular HGB Conc 31.5 g/dL (29.9-35.2); Mean Corpuscular Hemoglobin 28.5 pg (26.7-34.0); Mean Corpuscular Volume 90.6 fL (81.0-99.0); Mean Platelet Volume 9.2 fL (9.5-13.5); Platelet Count 539 10^3/uL (150-450); Red Cell Distribution Width 15.5 % (11.0-15.0); White Blood Count 13.6 10^3/uL (4.0-11.0)
[2024-07-07 12:44] LABS: INR 1.05; Prothrombin Time 11.1 sec (9.0-11.6)
[2024-07-07 12:47] LABS: Alanine Aminotransferase 25 U/L (14-59); Albumin Globulin Ratio 0.7; Albumin Level 3.1 g/dL (3.4-5.0); Alkaline Phosphatase 39 U/L (46-116); Anion Gap 15.8; Aspartate Amino Transferase 18 U/L (15-37); BUN Creatinine Ratio 28.7; Bilirubin Total 0.4 mg/dL (0.2-1.0); Calcium 10.6 mg/dL (8.5-10.1); Carbon Dioxide 26.7 mmol/L (21.0-32.0); Chloride 104 mmol/L (98-107); Estimated GFR (African America 45 (>=60 mL/min/1.73m^2); Estimated GFR (Non-African Ame 37 (>=60 mL/min/1.73m^2); Globulin 4.7 g/dL; Glucose 93 mg/dL (74-106); Potassium 4.5 mmol/L (3.5-5.1); Sodium 142 mmol/L (136-145); Total Protein 7.8 g/dL (6.4-8.2)
[2024-07-07 12:56] LABS: Thyroid Stimulating Hormone 1.008 uIU/mL (0.358-3.740); Troponin I High Sensitivity 19.3 pg/mL (4.0-51.3)
[2024-07-07 13:00] LABS: Bilirubin Urine NEGATIVE (NEGATIVE); Blood Urine NEGATIVE (NEGATIVE); Clarity Urine SL CLOUDY (CLEAR); Color Urine LT. YELLOW (YELLOW); Glucose Urine UA NEGATIVE (NEGATIVE); Ketones Urine NEGATIVE (NEGATIVE); Leukocyte Esterase Urine MODERATE (NEGATIVE); Nitrite Urine POSITIVE (NEGATIVE); Protein Urine TRACE mg/dL (NEG/TRACE); Specific Gravity Urine 1.015 (1.005-1.025); Urobilinogen Urine 0.2 EU/dL (0.2-1.0)
[2024-07-07 13:01] LABS: Lymphocytes Absolute Manual 1.63 10^3/uL (1.20-3.80); Monocytes Absolute Manual 1.08 10^3/uL (0.30-0.80); Segmented Neut Absolute Manual 10.88 10^3/uL (1.4-6.5)
[2024-07-07 13:05] LABS: Acetaminophen <2.0 ug/mL (10.0-30.0); Ethanol <3 mg/dL
[2024-07-07 13:15] LABS: Bacteria Urine MODERATE #/HPF (NONE SEEN); Cast Seen? NONE SEEN #/LPF (NONE SEEN); Crystals Seen? None Seen #/HPF (None Seen); Mucus Urine NONE SEEN (NONE SEEN); RBC Urine 0-2 #/HPF (0-2); Squamous Epithelial Cell Urine RARE #/LPF (NONE/RARE); Urine Culture Indicated YES-FRMC; WBC Urine 20-50 #/HPF (NONE SEEN)
[2024-07-07] MEDS: CEFTRIAXONE 1,000 MG in 0.9 % SODIUM CHLORIDE 50 ML 100 MG IV (13:55)
[2024-07-07] MEDS: 0.9 % SODIUM CHLORIDE 1,000 ML 1000 ML IV (13:55)
--- NOTE | 2024-07-07 14:14 | ED.GENADUL1 ---
HPI HPI - General Adult General Chief complaint: Altered Mental Status Stated complaint: CONFUSION, DIARRHEA Time Seen by Provider: 07/07/24 12:13 Source: patient and family Mode of arrival: Wheelchair History of Present Illness HPI narrative: Patient is a 88-year-old female who is presenting to the ER after she fell out of bed this morning. Patient states that she was sitting on the edge of the bed, she was rubbing her knee. Patient stated that somehow she slipped and fell out of the bed landing onto the ground. Patient was on her knees face forward stuck in between the dresser and a another piece of furniture in the corner of the room. Patient does have a life alert button. Patient was calling for her son. Son came into the room to find her laying on the ground. Patient stated that she used her hands to help brace her fall, she does not believe that she hit her head. Patient is on Plavix. Patient has chronic diarrhea, she usually has a episode of 2 a day. The last 2 or 3 days, patient has had 3-5 episodes of diarrhea. Patient has been seen and evaluated several times for diarrhea. Patient currently has no headache or neck pain. No signs of trauma to the head. No chest pain or shortness of breath. No abdominal pain nausea vomiting. No other acute complaints. Yesterday she did have some mild nausea with no vomiting. All systems are negative except as noted/marked. All systems reviewed and otherwise negative. Nurses note and vital signs reviewed and patient is not hypoxic. General: The patient appears well and in no apparent distress. Patient is resting comfortably on cart. Patient is not toxic, lethargic, or listless Skin: Warm, dry, no pallor noted. There is no rash noted. No petechiae, purpura. Head: Normocephalic, atraumatic Eye: Normal conjunctiva, no drainage, EOMI. PERRL Ears, Nose, Mouth, and Throat: oral mucosa is moist. Nares patent. Mouth without vesicles. Cardiovascular: Regular Rate and Rhythm, no murmur, gallop, rub Respiratory: Patient is in no distress, no accessory muscle use, lungs are clear to auscultation, no wheezing, rales or rhonchi Back: non-tender, no CVA tenderness bilaterally to percussion. No CT LS midline pain GI: No suprapubic tenderness to palpation, no flank pain bilateral, no tenderness to palpation, no masses appreciated. No rebound, guarding, or rigidity noted. No distention Musculoskeletal: Patient has full range of motion of all of the extremities, no motor, sensory, or focal neurological deficits. NIH 0. Neurological: A&O x4, normal speech, alert and oriented x 3, GCS 15. Psychiatric: Cooperative Related Data Home Medications ?Medication ?Instructions ?Recorded ?Confirmed simvastatin 40 mg tablet 40 mg PO DAILY 09/27/22 04/24/24 acetaminophen 500 mg tablet 1,000 mg PO Q6H PRN pain 12/29/22 04/24/24 budesonide 3 mg 3 mg PO DAILY 12/29/22 04/24/24 capsule,delayed,extended release cholecalciferol (vitamin D3) 50 50 mcg PO DAILY 12/29/22 04/24/24 mcg (2,000 unit) tablet (D3 DOTS) loperamide 2 mg capsule (Imodium 2 mg PO Q4H 12/29/22 04/24/24 A-D) melatonin 5 mg tablet 5 mg PO DAILY 12/29/22 04/24/24 zinc gluconate 50 mg tablet 50 mg PO DAILY 12/29/22 04/24/24 pantoprazole 20 mg tablet,delayed 20 mg PO DAILY 07/25/23 04/24/24 release bismuth subsalicylate 262 mg 3 tab PO DAILY 04/07/24 04/24/24 chewable tablet (Bismuth) gabapentin 100 mg capsule 100 mg PO Q12H 04/07/24 04/24/24 multivitamin (Daily Multi-Vitamin 1 tab PO DAILY 04/07/24 04/24/24 tablet) nebivolol 10 mg tablet 10 mg PO DAILY 04/07/24 04/24/24 clopidogrel 75 mg tablet 75 mg PO DAILY 04/25/24 04/25/24 spironolactone 50 mg tablet 50 mg PO DAILY 04/25/24 04/25/24 Previous Rx's ?Medication ?Instructions ?Recorded Lactobacillus acidophilus, 1 packet PO BID 30 days #60 ea 01/01/23 [place] 100 million cell granules packet (Floranex) Allergies Allergy/AdvReac Type Severity Reaction Status Date / Time promethazine (From Phenergan) Allergy Severe Agitated Verified 07/07/24 11:44 levofloxacin AdvReac Severe Drowsy Verified 07/07/24 11:44 Penicillins AdvReac Severe Unknown Verified 07/07/24 11:44 Antihistamines - Alkylamine AdvReac Intermediate Unknown Verified 07/07/24 11:44 Opioid HPI Opioid Management Most Recent Opioid Data: Last Pain Scale 5 04/28/24, 10:33 Last ORT Total Score 0 04/24/24, 18:17 Last ORT Risk Category Low Risk 04/24/24, 18:17 PFSH PFSH Medical History (Updated 07/07/24 @ 14:12 by Saji Vaca MD) Colitis ?K52.9 - Noninfective gastroenteritis and colitis, unspecified (ICD-10) Cataracts, bilateral ?H26.9 - Unspecified cataract (ICD-10) HTN (hypertension) ?I10 - Essential (primary) hypertension (ICD-10) Hypomagnesemia ?E83.42 - Hypomagnesemia (ICD-10) Peripheral edema ?R60.0 - Localized edema (ICD-10) GERD (gastroesophageal reflux disease) ?K21.9 - Gastro-esophageal reflux disease without esophagitis (ICD-10) IBD (inflammatory bowel disease) ?K52.9 - Noninfective gastroenteritis and colitis, unspecified (ICD-10) CAD (coronary artery disease) ?I25.10 - Atherosclerotic heart disease of [place] coronary artery without angina pectoris (ICD-10) 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 (ICD-10) Cholecystectomy planned Cataract ?H26.9 - Unspecified cataract (ICD-10) Acute hypokalemia ?E87.6 - Hypokalemia (ICD-10) Clostridium difficile colitis ?A04.72 - Enterocolitis due to Clostridium difficile, not specified as recurrent (ICD-10) Acute dehydration ?E86.0 - Dehydration (ICD-10) Acute pain of right shoulder ?M25.511 - Pain in right shoulder (ICD-10) Acute hyponatremia ?E87.1 - Hypo-osmolality and hyponatremia (ICD-10) Urinary tract infection ?N39.0 - Urinary tract infection, site not specified (ICD-10) Altered mental status ?R41.82 - Altered mental status, unspecified (ICD-10) Surgical History Hx of cholecystectomy ?Z90.49 - Acquired absence of other specified parts of digestive tract (ICD-10) History of ERCP ?Z98.890 - Other specified postprocedural states (ICD-10) S/P femoral-femoral bypass surgery ?Z95.828 - Presence of other vascular implants and grafts (ICD-10) History of hysterectomy ?Z90.710 - Acquired absence of both cervix and uterus (ICD-10) 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 - Presence of aortocoronary bypass graft (ICD-10) History of left hip replacement ?Z96.642 - Presence of left artificial hip joint (ICD-10) S/P CABG x 5 ?Z95.1 - Presence of aortocoronary bypass graft (ICD-10) Family History Father Family history of CHF (congestive heart failure) Family history of hypertension Brother Family history of cancer Sister Family history of cancer Family history of myocardial infarction Mother Family history of hypertension Family history of stroke Social History Within the past year, how often did you have a drink containing alcohol: monthly or less Within the past year, how many standard drinks containing alcohol did you have on a typical day: 1 or 2 Within the past year, how often did you have six or more drinks on one occasion: never Total score: 0 Score interpretation: A score less than 3 is consistent with normal alcohol consumption. Smoking status: Never smoker Non-prescribed substance use: denies use Highest level of school completed/degree received: 10th grade Are you now , , , , never or living with a partner: In a typical week, how many times do you talk on the telephone with family, friends, or neighbors: twice per week How often do you get together with friends or relatives: twice per week How often do you attend episcopal or islam services: never Do you belong to any clubs or organizations such as episcopal groups unions, fraternal or athletic groups, or school groups: no Total score: 1 Score interpretation: A score of less than or equal to 1 indicates the most socially isolated. Little interest or pleasure in doing things: not at all Feeling down, depressed, or hopeless: not at all Exam Constitutional Vital Signs, click to edit/add: Last Vital Signs Temp 97.4 F L 07/07/24 11:44 Pulse 65 07/07/24 11:44 Resp 18 07/07/24 11:44 BP 134/69 07/07/24 11:44 Pulse Ox 97 07/07/24 11:44 O2 Del Method Room Air 07/07/24 11:44 Course Vital Signs Vital signs: Vital Signs Temperature 97.4 F L 07/07/24 11:44 Pulse Rate 65 07/07/24 11:44 Respiratory Rate 18 07/07/24 11:44 Blood Pressure 134/69 07/07/24 11:44 Pulse Oximetry 97 07/07/24 11:44 Oxygen Delivery Method Room Air 07/07/24 11:44 Temperature 97.4 F L 07/07/24 11:44 Pulse Rate 65 07/07/24 11:44 Respiratory Rate 18 07/07/24 11:44 Blood Pressure 134/69 07/07/24 11:44 Pulse Oximetry 97 07/07/24 11:44 Oxygen Delivery Method Room Air 07/07/24 11:44 Medical Decision Making [facility] Narrative Medical decision making narrative: Patient seen and examined: Patient will have CT of the head, chest x-ray, IV, lab work, IV fluids. Differential diagnosis includes but is not limited to: Intracranial hemorrhage, stroke, dehydration, electrolyte abnormality, fall, infection. Diagnostics and management: Patient will have laboratory studies Relevant laboratory interpretation: White blood cell count 13.6, H&H of 11/07; platelets 539. BUN 39, creatinine 1.36 today. UTI poss. Radiological studies: Please see the formal radiological report. Reevaluation: Patient was given 1 L of IV fluid, 1 g of IV Rocephin. Patient feels better after IV fluids. Shared decision making: I discussed with the patient the necessary laboratory findings and radiological findings. Social barriers to healthcare: There are no food insecurities, there is no issue with transportation, there are no insurance barriers. Disposition: I discussed with the patient minimal elevation of white blood cell, patient also appears to be hemoconcentrated, elevated platelets. Patient BUN/creatinine were elevated, this was discussed with patient and daughters at bedside. Daughter is aware of chronic renal insufficiency. Patient did not seem to be aware of this. Patient PCP is Dr. Vergara. . Patient BUN and creatinine are 39/1.36. Is aware of urinary tract infection, also elevated creatinine. Patient will follow-up with kidney physician. Patient also follow-up with PCP. Patient ambulated with a walker, did well prior to discharge. Patient been eating and drinking with no difficulty. Patient was a pleasure to take care of, no question at discharge Lab Data Labs: Lab Results 07/07/24 07/07/24 Range/Units 12:20 12:45 WBC 13.6 H (4.0-11.0) 10^3/uL RBC 3.40 L (4.20-5.40) 10^6/uL Hgb 9.7 L (12.0-16.0) g/dL Hct 30.8 L (36.0-48.0) % MCV 90.6 (81.0-99.0) fL MCH 28.5 (26.7-34.0) pg MCHC 31.5 (29.9-35.2) g/dL RDW 15.5 H (11.0-15.0) % Plt Count 539 H (150-450) 10^3/uL MPV 9.2 L (9.5-13.5) fL Seg Neuts % (Manual) 80.0 H (43.0-75.0) Lymphocytes % (Manual) 12.0 L (20.5-60.0) % Monocytes % (Manual) 8.0 (1.7-12.0) % Eosinophils % (Manual) 0.0 L (0.9-7.0) % Basophils % (Manual) 0.0 L (0.2-2.0) % Neutrophils # (Manual) 10.88 H (1.4-6.5) 10^3/uL Lymphocytes # (Manual) 1.63 (1.20-3.80) 10^3/uL Monocytes # (Manual) 1.08 H (0.30-0.80) 10^3/uL Eosinophils # (Manual) 0.00 (0.00-0.70) 10^3/uL Basophils # (Manual) 0.00 (0.00-0.10) 10^3/uL PT 11.1 (9.0-11.6) sec INR 1.05 Sodium 142 (136-145) mmol/L Potassium 4.5 (3.5-5.1) mmol/L Chloride 104 (98-107) mmol/L Carbon Dioxide 26.7 (21.0-32.0) mmol/L Anion Gap 15.8 BUN 39.0 H (7.0-18.0) mg/dL Creatinine 1.36 H (0.55-1.02) mg/dL Est GFR ( Amer) 45 L (>=60 mL/min/1.73m^2) Est GFR (Non-Af Amer) 37 L (>=60 mL/min/1.73m^2) BUN/Creatinine Ratio 28.7 Glucose 93 (74-106) mg/dL Calcium 10.6 H (8.5-10.1) mg/dL Total Bilirubin 0.4 (0.2-1.0) mg/dL AST 18 (15-37) U/L ALT 25 (14-59) U/L Alkaline Phosphatase 39 L (46-116) U/L Troponin I High Sens 19.3 (4.0-51.3) pg/mL Total Protein 7.8 (6.4-8.2) g/dL Albumin 3.1 L (3.4-5.0) g/dL Globulin 4.7 g/dL Albumin/Globulin Ratio 0.7 TSH 1.008 (0.358-3.740) uIU/mL Urine Color Lt. yellow (YELLOW) Urine Clarity Sl cloudy (CLEAR) Urine pH 6.0 (5.0-9.0) Ur Specific [place] 1.015 (1.005-1.025) Urine Protein Trace (NEG/TRACE) mg/dL Urine Glucose (UA) Negative (NEGATIVE) mg/dL Urine Ketones Negative (NEGATIVE) mg/dL Urine Occult Blood Negative (NEGATIVE) Urine Nitrite Positive A (NEGATIVE) Urine Bilirubin Negative (NEGATIVE) Urine Urobilinogen 0.2 (0.2-1.0) EU/dL Ur Leukocyte Esterase Moderate A (NEGATIVE) Urine RBC 0-2 (0-2) #/HPF Urine WBC 20-50 A (NONE SEEN) #/HPF Ur Squamous Epith Cells Rare (NONE/RARE) #/LPF Urine Crystals None seen (None Seen) #/HPF Urine Bacteria Moderate A (NONE SEEN) #/HPF Urine Casts None seen (NONE SEEN) #/LPF Urine Mucus None seen (NONE SEEN) Ur Culture Indicated? Yes-[facility] [place] Acetaminophen <2.0 L (10.0-30.0) ug/mL Ethanol Quant <3 mg/dL Discharge Plan Discharge Chief Complaint: Altered Mental Status Clinical Impression: Acute UTI, Chronic diarrhea, Mild dehydration Patient Disposition: Home, Self-Care Condition: Fair Prescriptions / Home Meds: No Action simvastatin 40 mg tablet 40 mg PO DAILY acetaminophen 500 mg tablet 1,000 mg PO Q6H PRN (Reason: pain) budesonide 3 mg capsule,delayed,extend.release 3 mg PO DAILY zinc gluconate 50 mg tablet 50 mg PO DAILY cholecalciferol (vitamin D3) [D3 DOTS] 50 mcg (2,000 unit) tablet 50 mcg PO DAILY melatonin 5 mg tablet 5 mg PO DAILY loperamide [Imodium A-D] 2 mg capsule 2 mg PO Q4H Rx Instructions: administer after each loose stool until symptoms controlled; do not exceed 8 mg per 24 hrs Lactobacillus acidoph-L.bulgar [Floranex] 100 million cell Granules In Packet 1 packet PO BID 30 Days Qty: 60 11RF pantoprazole 20 mg tablet,delayed release (DR/EC) 20 mg PO DAILY nebivolol 10 mg tablet 10 mg PO DAILY multivitamin [Daily Multi-Vitamin] Tablet 1 tab PO DAILY gabapentin 100 mg capsule 100 mg PO Q12H bismuth subsalicylate [Bismuth] 262 mg tablet,chewable 3 tab PO DAILY clopidogrel 75 mg tablet 75 mg PO DAILY spironolactone 50 mg tablet 50 mg PO DAILY Print Language: Dutch Instructions: Dehydration (ED), Acute Diarrhea (ED), Urinary Tract Infection in Older Adults (ED) Additional Instructions: Increase fluids at home, Gatorade, Powerade, water Take your next dose of antibiotic tomorrow. The IV antibiotic you received last 24 hours. Use nausea medication if needed to help increase fluids at home Urine culture is pending. Follow-up with Dr. Vergara. We have discussed following up with Nephrology for continued kidney care and kidney health. Referrals: Shirlene Vergara MD [Primary Care Provider, Family Practice] - 1 week
--- OUTSIDE RECORDS SUMMARY | 2024-08-03 20:00 | XMS_ITS | Clinical Summary ---
Author Organization Unknown Care Team Providers Care Pest Control Supervisor Name Role Phone LISANDRO KRISHNAN, GYPSY Unavailable Unavailable ELLA MUKHERJEE, JOANN Unavailable Unavailable FRETZ OT, LONG Unavailable Unavailable LEFTY PT, LILI Unavailable Unavailable ASHLEY SSEAYN, NAT Unavailable Unavailable JEIMY RN, ALEKSANDRA Unavailable Unavailable ABEL HOOD, ROSEMARIE Unavailable Unavailable MICHELLE (KARINA) KARINA- FLIPPING MACHINE OPERATOR, MARY ELLEN Unavailable Unava ilable Payers Payer Name Policy Type Policy Number Effective Date Expira tion Date MEDICARE - [place] - PDGM [id number] Problems Condition Name Condition Details Condition Category [...] NOT SPECIFIED Active 02-08 00:00: 00 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, RIGHT LEG Active 02-08 00:00: 00 VENOUS INSUFFICIENC Y (CHRONIC) (PERIPHERAL) Active 02-08 00:00: 00 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 Active 02-08 00:00: 00 UNSPECIFIED CATARACT Active 02-08 00:00: 00 HYPERLIPIDEM IA, UNSPECIFIED Active 02-08 00:00: 00 ATHSCL HEART DISEASE OF [place] CORONARY ARTERY W/O ANG PCTRS Active 02-08 [...] OF NICOTINE DEPENDENCE Active 02-08 00:00: 00 USP (CURRENT) USE OF INHALED STEROIDS Active 02-08 00:00: 00 USP (CURRENT) USE OF ANTITHROMBOT ICS/ANTIPLAT ELETS Active [...] 2-06 00:00: 00 04-25 23:59 :00 No [id number] 1 capsule 3 TIMES DAILY 1 capsule 3 TIMES DAILY (route: oral) Med Classific ation: Central Nervous System Agents pantoprazol e 20 mg tablet,ann yed release 1-15 00:00: 00 04-25 23:59 :00 No [id number] 1 tablet DAILY 1 tablet DAILY (route: oral) Med Classific ation: Gastroint estinal Therapy Agents acidophilus 25 million cell-pectin , citrus 100 mg tablet 2-01 00:00: 00 04-25 23:59 :00 No [id number] 1 tablet DAILY 1 tablet DAILY (route: oral) Med Classific ation: Gastroint estinal Therapy Agents ascorbic acid (vitamin C) 250 mg tablet 2- 00:00: 00 04-25 23:59 :00 No [id number] 1 tablet 2 TIMES DAILY 1 tablet 2 TIMES DAILY (route: oral) Med Classific ation: Electroly te Balance-N utritiona l Products budesonide DR - ER 3 mg capsule,del ayed,extend ed release 2-01 00:00: 00 04-25 23:59 :00 No [id number] 1 capsule DAILY 1 capsule DAILY (route: oral) Med Classific ation: Gastroint estinal Therapy Agents cholecalcif valerie (vitamin D3) 50 mcg (2,000 unit) capsule 2- 00:00: 00 04-25 23:59 :00 No [id number] 1 capsule DAILY 1 capsule DAILY (route: oral) Med Classific ation: Electroly te Balance-N utritiona l Products Colace 100 mg capsule 2-01 00:00: 00 04-25 23:59 :00 No [id number] 1 capsule 2 TIMES DAILY 1 capsule 2 TIMES DAILY (route: oral) Med Classific ation: Gastroint estinal Therapy Agents melatonin 3 mg capsule 2-01 00:00: 00 04-25 23:59 :00 No [id number] 2 capsule BEDTIME 2 capsule BEDTIME (route: oral) Med Classific ation: Central Nervous System Agents nebivolol 10 mg tablet 2- 00:00: 00 04-25 23:59 :00 No [id number] 1 tablet DAILY 1 tablet DAILY (route: oral) Med Classific ation: Cardiovas cular Therapy Agents Pepto-Bismo l 262 mg chewable tablet 2- 00:00: 00 04-25 23:59 :00 No [id number] 3 tablet DAILY 3 tablet DAILY (route: oral) Med Classific ation: Gastroint estinal Therapy Agents Plavix 75 mg tablet 2- 00:00: 00 04-25 23:59 :00 No [id number] 1 tablet DAILY 1 tablet DAILY (route: oral) Med Classific ation: Hematolog ical Agents simvastatin 40 mg tablet 2- 00:00: 00 04-25 23:59 :00 No [id number] 1 tablet DAILY 1 tablet DAILY (route: oral) Med Classific ation: Cardiovas cular Therapy Agents spironolact one 50 mg tablet 2- 00:00: 00 04-25 23:59 :00 No [id number] 1 tablet DAILY 1 tablet DAILY (route: oral) Med Classific ation: Cardiovas cular Therapy Agents tramadol 50 mg tablet 2- 00:00: 00 04-25 23:59 :00 No [id number] 1 tablet BEDTIME 1 tablet BEDTIME (route: oral) Med Classific ation: Analgesic , Anti-infl ammatory or Antipyret ic Xarelto 2.5 mg tablet 2- 00:00: 00 04-25 23:59 :00 No [id number] 1 tablet 2 TIMES DAILY 1 tablet 2 TIMES DAILY (route: oral) Med Classific ation: Hematolog ical Agents cephalexin 500 mg capsule 3-01 00:00: 00 04-14 23:59 :00 No [id number] ANTIBIOTIC 1 capsule EVERY 8 HOURS 1 capsule EVERY 8 HOURS (route: oral) Med Classific ation: Anti-Infe ctive Agents budesonide DR - ER 3 mg capsule,del ayed,extend ed release 06-07 00:00: 00 Yes [id number] 1 capsule DAILY 1 capsule DAILY (route: oral) Med Classific ation: Gastroint estinal Therapy Agents cholecalcif valerie (vitamin D3) 50 mcg (2,000 unit) tablet 06-07 00:00: 00 Yes [id number] 1 tablet DAILY 1 tablet DAILY (route: oral) Med Classific ation: Electroly te Balance-N utritiona l Products clopidogrel 75 mg tablet 06-07 00:00: 00 Yes [id number] 1 tablet DAILY 1 tablet DAILY (route: oral) Med Classific ation: Hematolog ical Agents gabapentin 100 mg capsule 06-07 00:00: 00 06-07 23:59 :00 No [id number] 1 capsule 2 TIMES DAILY 1 capsule 2 TIMES DAILY (route: oral) Med Classific ation: Central Nervous System Agents Galzin 50 mg (zinc) capsule 06-07 00:00: 00 Yes [id number] 1 capsule DAILY 1 capsule DAILY (route: oral) Med Classific ation: Antidotes and other Reversal Agents Lactobacill us acidophilus 2 billion cell tablet 06-07 00:00: 00 Yes [id number] 1 tablet DAILY 1 tablet DAILY (route: oral) Med Classific ation: Gastroint estinal Therapy Agents melatonin 3 mg tablet 06-07 00:00: 00 Yes [id number] 2 tablet BEDTIME 2 tablet BEDTIME (route: oral) Med Classific ation: Central Nervous System Agents multivitami n tablet 06-07 00:00: 00 Yes [id number] 1 tablet DAILY 1 tablet DAILY (route: oral) Med Classific ation: Electroly te Balance-N utritiona l Products nebivolol 5 mg tablet 06-07 00:00: 00 Yes [id number] 2 tablet DAILY 2 tablet DAILY (route: oral) Med Classific ation: Cardiovas cular Therapy Agents pantoprazol e 20 mg tablet,ann yed release 06-07 00:00: 00 Yes [id number] 1 tablet DAILY 1 tablet DAILY (route: oral) Med Classific ation: Gastroint estinal Therapy Agents simvastatin 40 mg tablet 06-07 00:00: 00 Yes [id number] 1 tablet DAILY 1 tablet DAILY (route: oral) Med Classific ation: Cardiovas cular Therapy Agents spironolact one 50 mg tablet 06-07 00:00: 00 Yes [id number] 1 tablet DAILY 1 tablet DAILY (route: oral) Med Classific ation: Cardiovas cular Therapy Agents Vitamin C 250 mg tablet 06-07 00:00: 00 Yes [id number] 1 tablet 2 TIMES DAILY 1 tablet 2 TIMES DAILY (route: oral) Med Classific ation: Electroly te Balance-N utritiona l Products methenamine hippurate 1 gram tablet 06-26 00:00: 00 Yes [id number] 1 gram 2 TIMES DAILY 1 gram 2 TIMES DAILY (route: oral) Med Classific ation: Genitouri nary Therapy Immunizations Ordered Immunization Name Filled Immunization Name Date Status Comments Refusal Reason COVID BOOSTER, COVID BOOSTER 2023-11-22 00:00:00 INFLUENZA, TIV (INACTIVATED) 2023-11-22 00:00:00 Vital Signs Vital Name Observation Time Observation Value Commen ts Temperature 2024-07-06 09:07:00.000 97.6 [degF] Temperature 2024-06-26 [...] kg/m2 Height 2024-06-06 10:19:39.000 70 [in_us] Pulse 2024-07-06 09:07:00.000 75 /min Pulse 2024-06-26 11:11:00.000 68 /min Pulse 2024-06-26 08:41:00.000 72 /min Pulse 2024-06-21 09:35:00.000 74 /min Pulse 2024-06-20 09:09:07.000 69 /min Pulse 2024-06-19 10:21:00.000 69 /min Pulse 2024-06-14 10:23:49.000 77 /min Pulse 2024-06-13 08:59:00.000 67 /min Pulse 2024-06-13 08:54:00.000 67 /min Pulse 2024-06-12 11:46:00.000 62 /min Pulse 2024-06-09 11:31:11.000 61 /min Pulse 2024-06-06 11:00:00.000 60 /min O2 Saturation (%) 2024-07-06 09:07:00.000 100 % O2 Saturation (%) 2024-06-26 11:11:00.000 97 % O2 Saturation (%) 2024-06-19 10:21:00.000 98 % O2 Saturation (%) 2024-06-13 08:59:00.000 95 % O2 Saturation (%) 2024-06-13 08:54:00.000 95 % O2 Saturation (%) 2024-06-12 11:46:00.000 96 % O2 Saturation (%) 2024-06-06 11:00:00.000 95 % Respirations 2024-07-06 09:07:00.000 16 /min Respirations 2024-06-26 11:11:00.000 16 /min Respirations 2024-06-26 08:41:00.000 16 /min Respirations 2024-06-21 09:35:00.000 18 /min Respirations 2024-06-20 09:09:13.000 16 /min Respirations 2024-06-19 10:21:00.000 18 /min Respirations 2024-06-14 10:23:57.000 16 /min Respirations 2024-06-13 08:59:00.000 16 /min Respirations 2024-06-13 08:54:00.000 16 /min Respirations 2024-06-12 11:46:00.000 18 /min Respirations 2024-06-09 11:31:16.000 16 /min Respirations 2024-06-06 11:00:00.000 15 /min Weight (lbs) 2024-06-12 11:46:00.000 139 [lb_av] Weight (lbs) 2024-06-06 10:20:04.000 139 [lb_av] Systolic Blood Pressure 2024-07-06 09:07:00.000 143 mm [...] 11:00:00.000 145 mm [Hg] Diastolic Blood Pressure 2024-07-06 09:07:00.000 [...] MAINTAIN SITUATIONAL AWARENESS AND WILL NOTIFY CLINICAL COMMISSION AGENT LIVESTOCK AND PHYSICIAN/PROVIDER WITH ANY CHANGE IN CONDITION. [code = SKILLED NURSE TO PERFORM ENVIRONMENTAL SAFETY RISK ASSESSMENT AND FALL RISK ASSESSMENT AND PROVIDE INSTRUCTION TO IMPLEMENT ENVIRONMENTAL SAFETY AND FALL PREVENTION STRATEGIES THROUGHOUT THE CERTIFICATION PERIOD. SKILLED NURSE WILL MAINTAIN SITUATIONAL AWARENESS AND WILL NOTIFY CLINICAL COMMISSION AGENT LIVESTOCK AND PHYSICIAN/PROVIDER WITH ANY CHANGE IN CONDITION.] [...] REDUCE RISK FOR FALL AND INJURY] Goal Patient Goal - TAKE A SHOWER BY HERSELF Goal Provider Goal - A PLAN OF CARE WILL BE ESTABLISHED THAT MEETS PATIENT'S DETENTION NEEDS AND INCLUDES PATIENT GOAL FOR HOME [...] REDUCE THE RISK OF FALLS AND INJURY. Progress Notes Progress Notes <paragraph>[Visit Date: 2024 by LILI OLEA PT]:</paragraph><paragraph>LILI Aviles PT, DPT REVIEWED TX NOTES BY ALEXA PORTER PTA FROM 06/21 AND 06/26/24 AND AM IN AGREEMENT WITH TX PROVIDED.</paragraph> Encounters Start Date/Time End Date/Time Encounter Type Admission Type Attending [facility] Care Facility Care Department Encounter ID Discharge Date Discharge Status Discharge Condition Discharge Reason Percent Goals Met 2024-06-06 00:00:00 2024-08-04 00:00:00 Outpatient ALEKSANDRA MURRAY [facility] [id number]
--- OUTSIDE RECORDS SUMMARY | 2024-08-03 20:00 | XMS_ITS | Clinical Summary ---
Author Organization Unknown Care Team Providers Care Six Color Press Operator Name Role Phone LISANDRO KRISHNAN, GYPSY Unavailable Unavailable ELLA MUKHERJEE, JOANN Unavailable Unavailable FRETZ OT, LONG Unavailable Unavailable LEFTY PT, LILI Unavailable Unavailable ASHLEY SESAYN, NAT Unavailable Unavailable JEIMY RN, ALEKSANDRA Unavailable Unavailable ABEL HOOD, ROSEMARIE Unavailable Unavailable MICHELLE (KARINA) KARINA- OSD CLERK, MARY ELLEN Unavailable Unava ilable Payers Payer Name Policy Type Policy Number Effective Date Expira tion Date MEDICARE - [place] - PDGM [id number] Problems Condition Name Condition Details Condition Category [...] NOT SPECIFIED Active 02-08 00:00: 00 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, RIGHT LEG Active 02-08 00:00: 00 VENOUS INSUFFICIENC Y (CHRONIC) (PERIPHERAL) Active 02-08 00:00: 00 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 Active 02-08 00:00: 00 UNSPECIFIED CATARACT Active 02-08 00:00: 00 HYPERLIPIDEM IA, UNSPECIFIED Active 02-08 00:00: 00 ATHSCL HEART DISEASE OF [place] CORONARY ARTERY W/O ANG PCTRS Active 02-08 [...] OF NICOTINE DEPENDENCE Active 02-08 00:00: 00 RETIREMENT (CURRENT) USE OF INHALED STEROIDS Active 02-08 00:00: 00 RETIREMENT (CURRENT) USE OF ANTITHROMBOT ICS/ANTIPLAT ELETS Active [...] 2-06 00:00: 00 04-25 23:59 :00 No [id number] 1 capsule 3 TIMES DAILY 1 capsule 3 TIMES DAILY (route: oral) Med Classific ation: Central Nervous System Agents pantoprazol e 20 mg tablet,ann yed release 1-15 00:00: 00 04-25 23:59 :00 No [id number] 1 tablet DAILY 1 tablet DAILY (route: oral) Med Classific ation: Gastroint estinal Therapy Agents acidophilus 25 million cell-pectin , citrus 100 mg tablet 2-01 00:00: 00 04-25 23:59 :00 No [id number] 1 tablet DAILY 1 tablet DAILY (route: oral) Med Classific ation: Gastroint estinal Therapy Agents ascorbic acid (vitamin C) 250 mg tablet 2- 00:00: 00 04-25 23:59 :00 No [id number] 1 tablet 2 TIMES DAILY 1 tablet 2 TIMES DAILY (route: oral) Med Classific ation: Electroly te Balance-N utritiona l Products budesonide DR - ER 3 mg capsule,del ayed,extend ed release 2-01 00:00: 00 04-25 23:59 :00 No [id number] 1 capsule DAILY 1 capsule DAILY (route: oral) Med Classific ation: Gastroint estinal Therapy Agents cholecalcif valerie (vitamin D3) 50 mcg (2,000 unit) capsule 2- 00:00: 00 04-25 23:59 :00 No [id number] 1 capsule DAILY 1 capsule DAILY (route: oral) Med Classific ation: Electroly te Balance-N utritiona l Products Colace 100 mg capsule 2-01 00:00: 00 04-25 23:59 :00 No [id number] 1 capsule 2 TIMES DAILY 1 capsule 2 TIMES DAILY (route: oral) Med Classific ation: Gastroint estinal Therapy Agents melatonin 3 mg capsule 2-01 00:00: 00 04-25 23:59 :00 No [id number] 2 capsule BEDTIME 2 capsule BEDTIME (route: oral) Med Classific ation: Central Nervous System Agents nebivolol 10 mg tablet 2- 00:00: 00 04-25 23:59 :00 No [id number] 1 tablet DAILY 1 tablet DAILY (route: oral) Med Classific ation: Cardiovas cular Therapy Agents Pepto-Bismo l 262 mg chewable tablet 2- 00:00: 00 04-25 23:59 :00 No [id number] 3 tablet DAILY 3 tablet DAILY (route: oral) Med Classific ation: Gastroint estinal Therapy Agents Plavix 75 mg tablet 2- 00:00: 00 04-25 23:59 :00 No [id number] 1 tablet DAILY 1 tablet DAILY (route: oral) Med Classific ation: Hematolog ical Agents simvastatin 40 mg tablet 2- 00:00: 00 04-25 23:59 :00 No [id number] 1 tablet DAILY 1 tablet DAILY (route: oral) Med Classific ation: Cardiovas cular Therapy Agents spironolact one 50 mg tablet 2- 00:00: 00 04-25 23:59 :00 No [id number] 1 tablet DAILY 1 tablet DAILY (route: oral) Med Classific ation: Cardiovas cular Therapy Agents tramadol 50 mg tablet 2- 00:00: 00 04-25 23:59 :00 No [id number] 1 tablet BEDTIME 1 tablet BEDTIME (route: oral) Med Classific ation: Analgesic , Anti-infl ammatory or Antipyret ic Xarelto 2.5 mg tablet 2- 00:00: 00 04-25 23:59 :00 No [id number] 1 tablet 2 TIMES DAILY 1 tablet 2 TIMES DAILY (route: oral) Med Classific ation: Hematolog ical Agents cephalexin 500 mg capsule 3-01 00:00: 00 04-14 23:59 :00 No [id number] ANTIBIOTIC 1 capsule EVERY 8 HOURS 1 capsule EVERY 8 HOURS (route: oral) Med Classific ation: Anti-Infe ctive Agents budesonide DR - ER 3 mg capsule,del ayed,extend ed release 06-07 00:00: 00 Yes [id number] 1 capsule DAILY 1 capsule DAILY (route: oral) Med Classific ation: Gastroint estinal Therapy Agents cholecalcif valerie (vitamin D3) 50 mcg (2,000 unit) tablet 06-07 00:00: 00 Yes [id number] 1 tablet DAILY 1 tablet DAILY (route: oral) Med Classific ation: Electroly te Balance-N utritiona l Products clopidogrel 75 mg tablet 06-07 00:00: 00 Yes [id number] 1 tablet DAILY 1 tablet DAILY (route: oral) Med Classific ation: Hematolog ical Agents gabapentin 100 mg capsule 06-07 00:00: 00 06-07 23:59 :00 No [id number] 1 capsule 2 TIMES DAILY 1 capsule 2 TIMES DAILY (route: oral) Med Classific ation: Central Nervous System Agents Galzin 50 mg (zinc) capsule 06-07 00:00: 00 Yes [id number] 1 capsule DAILY 1 capsule DAILY (route: oral) Med Classific ation: Antidotes and other Reversal Agents Lactobacill us acidophilus 2 billion cell tablet 06-07 00:00: 00 Yes [id number] 1 tablet DAILY 1 tablet DAILY (route: oral) Med Classific ation: Gastroint estinal Therapy Agents melatonin 3 mg tablet 06-07 00:00: 00 Yes [id number] 2 tablet BEDTIME 2 tablet BEDTIME (route: oral) Med Classific ation: Central Nervous System Agents multivitami n tablet 06-07 00:00: 00 Yes [id number] 1 tablet DAILY 1 tablet DAILY (route: oral) Med Classific ation: Electroly te Balance-N utritiona l Products nebivolol 5 mg tablet 06-07 00:00: 00 Yes [id number] 2 tablet DAILY 2 tablet DAILY (route: oral) Med Classific ation: Cardiovas cular Therapy Agents pantoprazol e 20 mg tablet,ann yed release 06-07 00:00: 00 Yes [id number] 1 tablet DAILY 1 tablet DAILY (route: oral) Med Classific ation: Gastroint estinal Therapy Agents simvastatin 40 mg tablet 06-07 00:00: 00 Yes [id number] 1 tablet DAILY 1 tablet DAILY (route: oral) Med Classific ation: Cardiovas cular Therapy Agents spironolact one 50 mg tablet 06-07 00:00: 00 Yes [id number] 1 tablet DAILY 1 tablet DAILY (route: oral) Med Classific ation: Cardiovas cular Therapy Agents Vitamin C 250 mg tablet 06-07 00:00: 00 Yes [id number] 1 tablet 2 TIMES DAILY 1 tablet 2 TIMES DAILY (route: oral) Med Classific ation: Electroly te Balance-N utritiona l Products methenamine hippurate 1 gram tablet 06-26 00:00: 00 Yes [id number] 1 gram 2 TIMES DAILY 1 gram [...] MAINTAIN SITUATIONAL AWARENESS AND WILL NOTIFY CLINICAL CHARGING OPERATOR AND PHYSICIAN/PROVIDER WITH ANY CHANGE IN CONDITION. [code = SKILLED NURSE TO PERFORM ENVIRONMENTAL SAFETY RISK ASSESSMENT AND FALL RISK ASSESSMENT AND PROVIDE INSTRUCTION TO IMPLEMENT ENVIRONMENTAL SAFETY AND FALL PREVENTION STRATEGIES THROUGHOUT THE CERTIFICATION PERIOD. SKILLED NURSE WILL MAINTAIN SITUATIONAL AWARENESS AND WILL NOTIFY CLINICAL CHARGING OPERATOR AND PHYSICIAN/PROVIDER WITH ANY CHANGE IN CONDITION.] [...] CARE WILL BE ESTABLISHED THAT MEETS PATIENT'S SENIOR CARE NEEDS AND INCLUDES PATIENT GOAL FOR HOME [...] End Date/Time Encounter Type Admission Type Attending [facility] Care Facility Care Department Encounter ID Discharge Date Discharge Status Discharge Condition Discharge Reason Percent Goals Met 2024-06-06 00:00:00 2024-08-04 00:00:00 Outpatient [facility] [id number] 65.71
== END 2024-07-07 16:00 | disposition home or self-care (01) ==
PROVIDERS: Emergency Provider Emergency Medicine; PCP Family Medicine
DX: N39.0 Urinary tract infection, site not specified (principal); K52.9 Noninfective gastroenteritis and colitis, unspecified; E86.0 Dehydration; W06.XXXA Fall from bed, initial encounter; R41.82 Altered mental status, unspecified; Z79.02 Long term (current) use of antithrombotics/antiplatelets; Z79.899 Other long term (current) drug therapy; Z90.49 Acquired absence of other specified parts of digestive tract; Z95.1 Presence of aortocoronary bypass graft; Z90.710 Acquired absence of both cervix and uterus; Z96.642 Presence of left artificial hip joint
CPT/HCPCS: 36415; 70450; 71045; 80053; 80320; 80329; 81001; 83605; 84443; 84484; 85007; 85027; 85610; 87086; 87088; 87186; 93005; 96361; 96365; 99285; J0696

== ENCOUNTER 2024-07-25 15:34 | Outpatient (OUT) | payer MEDICARE, BC, SELFPAY ==
[2024-07-25 16:11] LABS: Bilirubin Urine NEGATIVE (NEGATIVE); Blood Urine TRACE-I (NEGATIVE); Clarity Urine CLEAR (CLEAR); Color Urine YELLOW (YELLOW); Glucose Urine UA NEGATIVE (NEGATIVE); Ketones Urine NEGATIVE (NEGATIVE); Leukocyte Esterase Urine NEGATIVE (NEGATIVE); Nitrite Urine NEGATIVE (NEGATIVE); Protein Urine NEGATIVE (NEG/TRACE); Urobilinogen Urine 0.2 EU/dL (0.2-1.0)
[2024-07-25 16:17] LABS: Basophils Percent Auto 0.3 % (0.2-2.0); Eosinophils Percent Auto 0.2 % (0.9-7.0); Hematocrit 32.2 % (36.0-48.0); Hemoglobin 10.3 g/dL (12.0-16.0); Immature Granulocytes Abs Auto 0.04 10^3/uL (0.00-0.03); Immature Granulocytes Pct Auto 0.3 % (0.0-0.5); Lymphocytes Absolute Auto 1.1 10^3/uL (1.2-3.8); Lymphocytes Percent Auto 7.3 % (20.5-60.0); Mean Corpuscular Hemoglobin 28.7 pg (26.7-34.0); Mean Corpuscular Volume 89.7 fL (81.0-99.0); Mean Platelet Volume 8.7 fL (9.5-13.5); Monocytes Absolute Auto 1.3 10^3/uL (0.3-0.8); Neutrophils Absolute Auto 12.2 10^3/uL (1.4-6.5); Neutrophils Percent Auto 82.9 % (43.0-75.0); Platelet Count 611 10^3/uL (150-450); Red Blood Count 3.59 10^6/uL (4.20-5.40); Red Cell Distribution Width 15.9 % (11.0-15.0); White Blood Count 14.7 10^3/uL (4.0-11.0)
[2024-07-25 16:32] LABS: Alanine Aminotransferase 32 U/L (14-59); Albumin Globulin Ratio 0.7; Albumin Level 3.2 g/dL (3.4-5.0); Alkaline Phosphatase 44 U/L (46-116); Anion Gap 18.1; Aspartate Amino Transferase 22 U/L (15-37); Bilirubin Total 0.3 mg/dL (0.2-1.0); Calcium 9.8 mg/dL (8.5-10.1); Carbon Dioxide 22.4 mmol/L (21.0-32.0); Chloride 101 mmol/L (98-107); Estimated GFR (African America 46 (>=60 mL/min/1.73m^2); Estimated GFR (Non-African Ame 38 (>=60 mL/min/1.73m^2); Globulin 4.8 g/dL; Glucose 109 mg/dL (74-106); Potassium 4.5 mmol/L (3.5-5.1); Sodium 137 mmol/L (136-145)
== END 2024-07-25 15:35 | disposition home or self-care (01) ==
LOC: LAB 15:38
PROVIDERS: PCP Family Medicine; Visit Provider Family Medicine
DX: E86.0 Dehydration (principal); N30.00 Acute cystitis without hematuria; R53.1 Weakness
CPT/HCPCS: 36415; 80053; 81003; 85025; 87086

== ENCOUNTER 2024-08-06 20:23 | Emergency (ER) | payer MEDICARE, BC, SELFPAY ==
--- OUTSIDE RECORDS SUMMARY | 2023-06-28 06:00 | XMS_ITS ---
Author Organization [facility] in [place] Address [address] [place] [address] Care Team Providers Care Computer Animator Name Role Phone Shirlene Vergara Primary Care Provider Twila Fountain Unavailable [phone] REASON FOR VISIT Nail Care Encounters Encounter Location Date Provider Diagnosis [facility] (PODIATRY) [address] [place] [address] [place] [address] 06/28/2023 Twila Leon Persons encountering health services in other specified circumstances Z76.89 Assessments Encounter Date Diagnosis (ICD Code) Assessment Notes Treatment Notes Treatment Clinical Notes Section Notes 06/28/2023 Persons encountering health services in other specified circumstances (ICD-10 - Z76.89) Plan Of Treatment No Information Progress Notes * Delicia SANDERSONDOB:1935 ( 87 yo F)Acc No.[id number]:06/28/2023 Nurse Visit Patient: Delicia GONZALES Provider: Sundar Leon PA-C :1935 A ge:87 Y S ex:Female Date:06/28/2023 Address[address] [place], [id number] Pcp:Shirlene Vergara Check In:09:54 AM ESTCheck O ut:10:31 AM EST Subjective: * Chief Complaints: * 1 . Nail Care. * HPI: G eneral: pt came into the office today for nail care. no other complaints. 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 P ersons encountering health services in other specified circumstances - Z76.89 (Primary)? Plan: * Treatment: * Procedure Codes: 9 9212 OFFICE VISIT/OTHER OUTPATIENT,EST,FOCUSED * * Sign off status: Completed Visit Status: C HK (Check Out) true * Provider: Sundar Leon PA-C Date: 0 06/28/2023 Generated for Verónica rivas/Sree/eTransmitting on: 0 08/06/2024 08:33 PM EDT
--- OUTSIDE RECORDS SUMMARY | 2023-09-27 06:00 | XMS_ITS ---
Author Organization The [facility] [place] Address [address] [place] [address] Care Team Providers Care Heel Varnisher Name Role Phone Shirlene Vergara Primary Care Provider UnavailTwila Mosley Unavailable [phone] REASON FOR VISIT Nail Care Encounters Encounter Location Date Provider Diagnosis [facility] (PODIATRY) [address] [place] [address] [place] [address] 09/27/2023 Twila Leon Plan Of Treatment No Information Progress Notes * Delicia SANDERSON FDOB:1935 (88 yo F)Acc No.[id number]:09/27/2023 UNLOCKED PROGRESS NOTE Nurse Visit Patient: Delicia GONZALES Provider: Sundar Leon PA-C :1935 A ge:87 Y S ex:Female Date:09/27/2023 Address:[address] [place], [id number] Pcp:Shirlene Vergara Check In:09:59 AM EST Subjective: * Chief Complaints: * 1 . Nail Care. * Medical History: Objective: * Vitals: Assessment: Plan: * Treatment: * * Electronic signature of Spencer Leon PA-C on 08/06/2024 at 08:32 PM EDT Sign off status: Pending Visit Status: O FF CANC (OFFICE CANCEL) * Provider: Sundar Leon PA-C Date: 0 09/27/2023 Generated for Verónica rivas/Sree/Angelitaitting on: 0 08/06/2024 08:32 PM EDT
--- OUTSIDE RECORDS SUMMARY | 2024-07-26 14:20 | XMS_ITS | Encounter Summary ---
Author Organization [facility] Address [address] [place] [address] Care Team Providers Care Applications Systems Analyst Name Role Phone Shirlene Vergara MD Primary Care Provider [phone] Reason for Referral * Cardiac Stress Testing (Routine) - Pending Review Specialty Diagnoses / Procedures Referred By Christiane gonsalves Referred To Contact Cardiology Diagnoses Tachycardia Procedures Cardiac event monitor Zeenat Arriola CNP [address] [place] [address] Phone: tel: fax: Referral ID Status Reason Start Date Expiration Date V isits Requested Visits Authorized [id number] Pending Review 07/26/2024 07/26/2025 1 1 Reason for Visit * Reason Comments Hypertension Peripheral Vascular Disease Encounter Details Date Type Department Care Team (Late st Contact Info) Description 07/26/2024 2:20 PM EDT Office Visit [facility] [address] [place] [address] Zeenat Arriola CNP [address] [place] [address] Tachycardia (Primary Dx); PAD (peripheral artery disease); Coronary artery disease involving tulalip coronary artery of tulalip heart without angina pectoris; Essential hypertension; Hx of CABG Social History Tobacco Use Types Packs/Day Years Used Date Smoking Tobacco: Former Cigarettes Smokeless Tobacco: Never Alcohol Use Standard Drinks/Week Comments Not Currently 0 (1 standard drink = 0.6 oz pur e alcohol) [place] Safety & Environment Answer Date Rec orded Fear of Current or Ex-Partner Not on file Emotionally Abused Not on file 04/01/2023 Physically Abused Not on file 04/01/2023 Sexually Abused Not on file 04/01/2023 Physically or Sexually Abused Not on file Comments Unknown Sex and Gender Information Value Date Recorded Sex Assigned at Not on file Legal Sex Female 10:59 PM EDT Gender Identity Not on file Sexual Orientation Not on file documented as of this encounter Last Filed Vital Signs Vital Sign Reading Time Taken Comments Blood Pressure 120/52 07/26/2024 2:32 PM EDT Pulse 60 07/26/2024 2:32 PM EDT Temperature - - Respiratory Rate - - Oxygen Saturation 100% 07/26/2024 2:32 PM EDT Inhaled Oxygen Concentration - - Weight 58.5 kg (129 lb) 07/26/2024 2:32 PM EDT Height 177.8 cm (5' 10 ) 07/26/2024 2:32 PM EDT Body Mass Index 18.51 07/26/2024 2:32 PM EDT documented in this encounter Progress Notes * Haylee Rincon MA - 07/26/2024 2:20 PM EDT Patient is here today for a 6 month follow up. Patient states she had vascular surgery on her rightleg and she is still having problems with her leg and foot, patient states she had more testing done and she will get the results of the test tomorrow. Patient states she had small bowel surgery April of 2024 for an obstruction. Patient states she had a high heart rate yesterday and called PCP, whodid blood work showed no change and a UA was normal a waiting culture. Patient complains of fatigue, fuzzy headed. Review of Systems Constitutional: Positive for malaise/fatigue. * Zeenat Arriola CNP - 07/26/2024 2:20 PM EDT Images from the original note were not included. Cardiovascular Medicine [facility] SUBJECTIVE Chief Complaint Patient presents with Hypertension Peripheral Vascular Disease Delicia Sanderson is a 88 y.o. female here for follow-up. HPI PMHx: CAD s/p CABG 1998, HTN, HLD 07/26/2024 Patient is here today for a 6 month follow up. Patient states she had vascular surgery on her right leg and she is still having problems with her leg and foot, patient states she had more testing done and she will get the results of the test tomorrow. Patient states she had small bowel surgery April of 2024 for an obstruction. Patient states she had a high heart rate yesterday and called PCP, who did blood work showed no change and a UA was normal a waiting culture. Patient complains of fatigue, fuzzy headed. She will be seeing Dr. Kirkland tomorrow. She had a UTI recently, BP was elevated at that time and was better by the time she left the hospital. Vascular took her off of low dose xarelto and put her back on baby ASA after her recent issue with a bowel obstruction. She remained on plavix. She notes fluctuating heart rates when checking her BP at home. She saw her PCP, HR was normal. 11/09/2023 She has been doing well since last seen. She is pending a vascular procedure with Dr. Kirkland. She may need femoral bypass surgery. She has some leg swelling but this is stable. Denies c/o CP, dyspnea, orthopnea, PND, dizziness/LH, palpitations, syncope. Patient Active Problem List Diagnosis Closed fracture of neck of femur (CMS/HCC) Osteoarthritis of hip PAD (peripheral artery disease) Arthritis of right knee Internal derangement of right knee Complete tear of right rotator cuff Coronary artery disease with angina pectoris Essential hypertension Hip bursitis, left Other abnormalities of gait and mobility Venous insufficiency (chronic) (peripheral) Anemia C. 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) Diarrhea Hypercalcemia Hyperlipidemia Microscopic colitis Recurrent Clostridioides difficile diarrhea Recurrent UTI Urge incontinence Venous ulcer of right leg (CMS/HCC) Chronic ulcer of lower extremity (CMS/HCC) Chronic ulcer of right heel (CMS/HCC) Chronic venous 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 (CMS/HCC) Elevated white blood cell count, unspecified Encounter for therapeutic drug monitoring Gastroesophageal reflux disease Immunocompromised state Ingrowing nail Ischemic enteritis Pressure injury of right heel, unstageable (CMS/HCC) Stasis edema with ulcer of both lower extremities (CMS/HCC) Status post small bowel resection Past Medical History: Diagnosis Date Coronary artery disease Hyperlipidemia Hypertension Family History Problem Relation Name Age of Onset Aneurysm Mother Heart attack Father Social History Tobacco Use Smoking status: Former Types: Cigarettes Smokeless tobacco: Never Substance Use Topics Alcohol use: Not Currently Drug use: Never Allergies Allergen Reactions Nsaids (Non-Steroidal Anti-Inflammatory Drug) Other [facility] Penicillins Rash Histamine Other it wires me Levofloxacin Promethazine Other Made her shake very badly Propoxyphene Unknown Antihistamine 12 Hour Other restlessness Diphenhydramine Unknown and Other restlessness Ezetimibe Other unknown Gemfibrozil Other unknown Histamine H2 Inhibitors Other restlessness Propoxyphene N-Acetaminophen Other JITTERY NOT ALLERGIC TO TYLENOL OBJECTIVE Visit Vitals BP 120/52 (BP Location: Right arm, Patient Position: Sitting) Pulse 60 Ht 1.778 m (5' 10 ) Wt 58.5 kg (129 lb) SpO2 100% BMI 18.51 kg/m?? Smoking Status Former BSA 1.7 m?? Medications: Current Outpatient Medications: ascorbic acid (Vitamin C) 250 MG chewable tablet, Chew 250 mg., Disp: , Rfl: aspirin 81 mg EC tablet, Take 81 mg by mouth in the morning., Disp: , Rfl: budesonide EC (Entocort EC) 3 mg 24 hr capsule, budesonide DR - ER 3 mg capsule,delayed,extended release, Disp: , Rfl: cholecalciferol, vitamin D3, 50 mcg (2,000 unit) capsule, Take 1 tablet by mouth in the morning., Disp: , Rfl: clopidogrel (Plavix) 75 mg tablet, TAKE 1 TABLET BY MOUTH ONCE DAILY DIRECTED, Disp: 90 tablet, Rfl: 3 methenamine hippurate (Hiprex) 1 gram tablet, Take 1 tablet by mouth Twice daily at 6am and 6pm., Disp: , Rfl: nebivolol (Bystolic) 10 mg tablet, Take 1 tablet (10 mg) by mouth once daily as directed., Disp: 90tablet, Rfl: 3 pantoprazole (ProtoNix) 40 mg EC tablet, Take 40 mg by mouth in the morning., Disp: , Rfl: simvastatin (Zocor) 40 mg tablet, simvastatin 40 mg tablet, Disp: , Rfl: spironolactone (Aldactone) 50 mg tablet, Take 50 mg by mouth in the morning., Disp: , Rfl: miscellaneous medical supply (Blood Pressure Cuff) [facility], 1 kit in the morning and at bedtime. (Patient not taking: Reported on 03/02/2024), Disp: 1 each, Rfl: 0 Physical Exam Vitals reviewed. Constitutional: Appearance: Normal [...] Thought content normal. Judgment: Judgment normal. Labs: 07/07/2024 Hgb 9.7, wbc 13.6, plt 539 Cr 1.36, BUN 39, K 4.5, Na 142, eGFR 37, AST 18, ALT 25 TSH 1.008 10/27/2023 Sodium 134 - 146 mmol/L 141 [...] % 70.5 % lymphocytes % 14.7 % monocytes % 13.8 % eosinophils % 0.6 % Basophils % 0.4 Neutrophils Absolute (A) 1.5 - 6.6 X10E9/L 5.5 Lymphocytes Absolute 1.0 - 3.5 X10E9/L 1.1 Monocytes Absolute 0 - 0.9 X10E9/L 1.1 High Eosinophils Absolute 0.0 - 0.4 X10E9/L 0.0 Basophils Absolute 0.0 - 0.2 X10E9/L 0.0 07/25/2023 Hgb 12.5, plt 288 Cr 1.4, [...] index of 0.87 and at toe-brachial index of0.56 Left MITCH 1.21 results of which disputed [...] is 71%. 3 times daily ratio 0.9. ASSESSMENT/PLAN: Diagnoses and all orders for this visit: Tachycardia - Cardiac event monitor; Future PAD (peripheral artery disease) Coronary artery disease involving tulalip coronary artery of tulalip heart without angina pectoris - Lipid panel; Future Essential hypertension Hx of CABG #CAD s/p CABG 1998 -Denies CP or dyspnea -Continue plavix 75mg daily, statin, and BB #PAD #Critical limb ischemia -s/p iliac artery angioplasty, endarterectomy of the iliofemoral and fempop bypass with Dr. Kirkland 12/2023 -Currently on ASA, plavix, statin -Concern for occlusion of bypass grafts. Follow-up with Dr. Kirkland as scheduled. #HTN -Controlled -Continue nebivolol 10mg daily, spironolactone 50mg daily #HLD -On simvastatin 40mg daily -Will need lipid panel with next lab draw #Fluctuating heart rate -Pt notes intermittent high heart rates >110 for extended periods of time and she will be resting. -Will order an event monitor to assess for any arrhythmias such as a.fib. Follow up in about 3 months (around 10/26/2024). Zeenat Arriola CNP [facility] Cardiovascular Medicine documented in this encounter Plan of Treatment Scheduled Orders Name Type Priority Associated Diagnoses Orde r Schedule Cardiac event monitor Cardiac Services Routine Tachycardia Expected: 07/26/2024 (Approximate), Expires: 07/26/2026 Lipid panel Lab Routine Coronary artery disease involving tulalip coronary artery of tulalip heart without angina pectoris Expected: 08/01/2024 (Approximate), Expires: 08/01/2025 documented as of this encounter Visit Diagnoses Diagnosis Tachycardia- Primary Unspecified tachycardia PAD (peripheral artery disease) Unspecified peripheral vascular disease Coronary artery disease involving tulalip coronary artery of tulalip heart without angina pectoris Essential hypertension Unspecified essential hypertension Hx of CABG Postsurgical aortocoronary bypass status documented in this encounter Care Teams Applications Systems Analyst Relationship Specialty Start Date End Date Shirlene Vergara MD [address] PCP - General 12/05/21 documented as of this encounter
--- OUTSIDE RECORDS SUMMARY | 2024-07-27 10:40 | XMS_ITS | Encounter Summary ---
[id number] [address] [place] [address] Care Team Providers Care Ophthalmic Assistant Name Role Phone Shirlene Vergara MD Primary Care Provider [phone] Reason for Visit * Reason Comments go over art doppler and art duplex pain leg and foot right Encounter Details Date Type Department Care Team (Late st Contact Info) Description 07/27/2024 10:40 AM EDT [facility] [place] [address] Deuce Kirkland MD [address], [address] [address] PAD (peripheral artery disease) (Primary Dx) Social History Tobacco Use Types Packs/Day Years Used Date Smoking Tobacco: Former Cigarettes Q uit: 12/30/1993 Smokeless Tobacco: Never Comments:QUIT IN 1989 Alcohol Use Standard Drinks/Week Comments Yes 1 (1 standard drink = 0.6 oz pur e alcohol) monthly [facility] Utilities Answer Date Recorded In the past 12 months has e electric, gas, oil, or water company threatened [...] Sign Reading Time Taken Comments Blood Pressure 131/67 07/27/2024 10:42 AM EDT Pulse - - Temperature - - Respiratory Rate - - Oxygen Saturation - - Inhaled Oxygen Concentration - - Weight - - Height 175.3 cm (5' 9 ) 07/27/2024 10:42 AM EDT Body Mass Index - - documented in this encounter Progress Notes * Deuce Kirkland MD - 07/27/2024 10:40 AM EDT Images from the original note were not included. To: SHIRLENE VERGARA MD HPI: Delicia Sanderson is a 88 y.o. female with history of venous ulcer in critical limb ischemia with tissue loss status post revascularization venous treatment. Wound healed nicely. She needed to be off herXarelto and she also had poor runoff. The bypass expectantly went down. She does not have any rest pain or tissue loss. She has claudication.. Review of Systems: Review of Systems Constitutional: [...] mg total) by mouth in the morning. bismuth subsalicylate (PEPTO-BISMOL ORAL) daily as needed. [...] tablet Take 1 tablet by mouth nightly. methenamine (MANDELAMINE) 1 GM tablet Take 1 tablet (1 g total) by mouth in the morning and 1 tablet (1 g total) before bedtime. nebivoloL (BYSTOLIC) 5 mg tablet Take 2 tablets (10 mg total) by mouth in the morning. Indications:high blood pressure. pantoprazole (PROTONIX) 40 mg EC [...] mg total) by mouth in the morning. acetic acid 0.25 % irrigation Irrigate with 20 mL as directed in the morning and 20 mL before bedtime. Use 20 cc per gauze. 500 mL 12 naloxone (NARCAN) 4 mg/actuation spray,non-aerosol nasal spray Administer 1 spray (4 mg total) intoalternating nostrils as needed for opioid reversal for up to 2 doses. 2 each 0 rivaroxaban (XARELTO) 2.5 mg tablet Take 1 tablet (2.5 mg total) by mouth in the morning and 1 tablet (2.5 mg total) before bedtime. 60 tablet 3 vancomycin (VANCOCIN) 125 mg capsule Take 1 [...] Critical limb ischemia of right lower extremity ([facility]) Dental disease UPPER AND LOWER DENTURE DIAZ (dyspnea on exertion) Fractures 2018 LEFT HIP GERD (gastroesophageal reflux disease) HL (hearing loss) Hyperlipidemia Hypertension Microscopic colitis PAD (peripheral artery disease) ([facility]) Peptic ulceration BLEEDING ULCER ADMITTED 2018 X13 DAYS TATYANA Rash Skin cancer REMOVED Sleep apnea No CPAP Thin skin Urinary tract infection CHRONIC, SEES ID EVERY 3 MONTHS Visual impairment Wound of ankle RIGHT SINCE 07/2023 Past Surgical History: Past Surgical History: Procedure Laterality Date ABDOMINAL SURGERY ANGIOGRAM EXTREMITY LOWER Right 01/01/2024 Performed by Deuce Kirkland MD at [facility] SPECIAL PROC ANGIOPLASTY ILIAC STENT PLACEMENT Right 01/01/2024 Performed by Deuce Kirkland MD at [facility] SPECIAL PROC ANGIOPLASTY ILIAC-ILIAC SHOCKWAVE INTRAVASCULAR LITHOTRIPSY Right 11/18/2023 Performed by Deuce Kirkland MD at [facility] SPECIAL PROC ARTHROSCOPY SHOULDER W/ OPEN ROTATOR CUFF REPAIR Left 2011 BOVINE PATCH ANGIOPLASTY CUTDOWN FEMORAL Right 01/01/2024 Performed by Deuce Kirkland MD at [facility] SPECIAL PROC BOVINE PATCH ANGIOPLASTY ILEOFEMORAL Right 01/01/2024 Performed by Deuce Kirkland MD at [facility] SPECIAL PROC BYPASS ARTERY FEMORAL BELOW KNEE POPLITEAL W/ VEIN PATCH/ HIGH GSV LIGATION AND HARVEST Right 01/01/2024 Performed by Deuce Kirkland MD at [facility] SPECIAL PROC CARDIAC SURGERY CATARACT EXTRACTION CHOLECYSTECTOMY N/A 2008 CORONARY ARTERY BYPASS GRAFT 1999 x 5 ENDARTERECTOMY FEMORAL AND ILIOFEMORAL ENDARTERECTOMY Right 01/01/2024 Performed by Deuce Kirkland MD at [facility] SPECIAL PROC EYE SURGERY HERNIA REPAIR N/A 03/2012 HIP FRACTURE SURGERY Left 05/2017 HYSTERECTOMY N/A JOINT REPLACEMENT lower ext angiogram Bilateral 01/07/2022 Performed by Taryn Belle MD at [facility] CARDIAC CATH LABS SCLEROTHERAPY LOWER EXTREMITY Right 12/24/2023 Performed by Deuce Kirkland MD at [facility] TOTAL HIP ARTHROPLASTY Left 2019 VASCULAR SURGERY Angiogram Social and Family History: Social History Socioeconomic History Marital status: Spouse name: Not on file Number of children: Not on file Years of education: Not on file Highest education level: Not on file Occupational History Not on file Tobacco Use Smoking status: Former Current packs/day: 0.00 Types: Cigarettes Quit date: 12/30/1993 Years since quittin.5 Smokeless tobacco: Never Tobacco comments: QUIT IN [...] the assessment and plan below. Vitals: BP 131/67 (BP Site: Left Arm, BP Postition: Sitting, BP CUFF SIZE: M (9-13 inches)) Ht 175.3 cm (5' 9 ) BMI 22.15 kg/m?? Body mass index is 22.15 kg/m??. Physical Exam: Physical Exam Constitutional: Appearance: Normal [...] normal. Judgment: Judgment normal. Recent testing: PVR and duplex ultrasound Assessment and Plan: Problem List PAD (peripheral artery disease) - Primary Overview Added automatically from request for surgery [id number] Current Assessment & Plan She had a venous ulcer with a occlusive disease status post revascularization in venous treatment with sclerotherapy. The venous ulcer healed nicely. Recently the bypass was then weaned down. It was a high-risk bypass because of poor outflow. She does not have rest pain she has claudication. She has a ejection fraction of 65%. Discussed with her adding cilostazol and conservative management giventhat she is high-risk. She is on aspirin and Plavix. Delicia was seen today for go over art doppler and art duplex. Diagnoses and all orders for this visit: PAD (peripheral artery disease) Other orders - cilostazoL (PLETAL) 100 mg tablet; Take 1 tablet (100 mg total) by mouth in the morning and 1 tablet (100 mg total) before bedtime. Deuce Kirkland MD, QUENTIN, RPVI, FSVS, FACS [facility] This note was created with the assistance of a speech recognition program. While intending to generate a timely document that accurately reflects the content of the visit, no guarantee can be provided that every grammatical or spelling mistake has been or will be identified or corrected. Thank you for your understanding. documented in this encounter Miscellaneous Notes * Assessment & Plan Note - Deuce Kirkland MD - 07/27/2024 11:33 AM EDT Associated Problem(s): PAD (peripheral artery disease) She had a venous ulcer with a occlusive disease status post revascularization in venous treatment with sclerotherapy. The venous ulcer healed nicely. Recently the bypass was then weaned down. It was a high-risk bypass because of poor outflow. She does not have rest pain she has claudication. She has a ejection fraction of 65%. Discussed with her adding cilostazol and conservative management giventhat she is high-risk. She is on aspirin and Plavix. documented in this encounter Plan of Treatment Upcoming Encounters Date Type Department Care Team (Late st Contact Info) Description 08/10/2024 10:10 AM EDT Office Visit [facility] [address] [place] [address] Deuce Kirkland MD [address], [address] [address] 01/25/2025 11:00 AM EST [facility] [address] [place] [address] Deuce Kirkland MD [address], [facility] [address] [place] [address] documented as of this encounter Goals Goal Patient Goal Type Associated Problems Recent Progress Patient-Stated? Author Daughter stated: Discharge to SNF and then back to independent living with resumption of home care,. General Yes Kelly Badillo, KAYLYNN Note: Evaluation of progress towards goal: documented as of this encounter Visit Diagnoses Diagnosis PAD (peripheral artery disease)- Primary Unspecified peripheral vascular disease documented in this encounter Additional Health Concerns Assessment Noted Time PHQ-9 Depression Total Score: 0 11/18/19 24 9:33 PM EDT documented as of this encounter Care Teams Ophthalmic Assistant Relationship Specialty Start Date End Date Shirlene Vergara MD [address] [place] [address] PCP - General Family Medicine 04/10/22 documented as of this encounter
--- OUTSIDE RECORDS SUMMARY | 2024-07-30 20:00 | XMS_ITS | Clinical Summary ---
Author Organization Unknown Care Team Providers Care Dealer Development Manager Name Role Phone LISANDRO KRISHNAN, GYPSY Unavailable Unavailable ELLA MUKHERJEE, JOANN Unavailable Unavailable FRETZ OT, LONG Unavailable Unavailable LEFTY PT, LILI Unavailable Unavailable ASHLEY SESAYN, NAT Unavailable Unavailable JEIMY RN, ALEKSANDRA Unavailable Unavailable ABEL HOOD, ROSEMARIE Unavailable Unavailable MICHELLE (KARINA) KARINA- SALES ENABLEMENT SPECIALIST, MARY ELLEN Unavailable Unava ilable Payers Payer Name Policy Type Policy Number Effective Date Expira tion Date MEDICARE - [place] - PDGM [id number] Problems Condition Name Condition Details Condition Category Status Onset Date Resolution Date Last Treatment Date Treating Clinician Comments ENCNTR FOR SURGICAL AFTCR FOLLOWING SURGERY ON THE DGSTV SYS Active 02-08 00:00: 00 ANXIETY DISORDER, UNSPECIFIED Active 02-08 00:00: 00 HYPERTENSIVE CHRONIC KIDNEY DISEASE W STG 1-4/UNSP CHR KDNY Active 02-08 00:00: 00 CHRONIC KIDNEY DISEASE, UNSPECIFIED Active 02-08 00:00: 00 DVRTCLOS OF LG INT W/O PERFORATION OR ABSCESS W/O BLEEDING Active 02-08 00:00: 00 UNILATERAL PRIMARY OSTEOARTHRIT IS, RIGHT KNEE Active 02-08 00:00: 00 GASTRO-ESOPH AGEAL REFLUX DISEASE WITHOUT ESOPHAGITIS Active 02-08 00:00: 00 URINARY TRACT INFECTION, SITE NOT SPECIFIED Active 02-08 00:00: 00 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, RIGHT LEG Active 02-08 00:00: 00 VENOUS INSUFFICIENC Y (CHRONIC) (PERIPHERAL) Active 02-08 00:00: 00 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 Active 02-08 00:00: 00 UNSPECIFIED CATARACT Active 02-08 00:00: 00 HYPERLIPIDEM IA, UNSPECIFIED Active 02-08 00:00: 00 ATHSCL HEART DISEASE OF [place] CORONARY ARTERY W/O ANG PCTRS Active 02-08 00:00: 00 UNSPECIFIED HEARING LOSS, UNSPECIFIED EAR Active 02-08 00:00: 00 PERSONAL HISTORY OF OTHER MALIGNANT NEOPLASM OF SKIN Active 02-08 00:00: 00 PRESENCE OF CORONARY ANGIOPLASTY IMPLANT AND GRAFT Active 02-08 00:00: 00 Problems related to health literacy Active 02-08 00:00: 00 PRESENCE OF AORTOCORONAR Y BYPASS GRAFT Active 02-08 00:00: 00 CATARACT EXTRACTION STATUS, RIGHT EYE Active 02-08 00:00: 00 CATARACT EXTRACTION STATUS, LEFT EYE Active 02-08 00:00: 00 PERSONAL HISTORY OF NICOTINE DEPENDENCE Active 02-08 00:00: 00 RECREATIONAL THERAPIST (CURRENT) USE OF INHALED STEROIDS Active 02-08 00:00: 00 SKILLED NURSING (CURRENT) USE OF ANTITHROMBOT ICS/ANTIPLAT ELETS Active 02-08 00:00: 00 Allergies, Adverse Reactions, Alerts Allergy Name Allergy Type Status Severity Reaction(s) Onset Date Inactive Date Treating Clinician Comments LEVOFLOXACIN HYDRATE Propensity to adverse reactions Active 06-06 10:23: 35 PENICILLIN (G) Propensity to adverse reactions Active 06-06 10:22: 45 PHENERGAN Propensity to adverse reactions Active 06-06 10:23: 02 EZETIMIBE Propensity to adverse reactions Active 06-07 15:33: 21 GEMFIBROZIL Propensity to adverse reactions Active 06-07 15:33: 46 HISTAMINE H2 INHIBITORS Propensity to adverse reactions Active 06-07 15:33: 59 PROPOXYPHENE Propensity to adverse reactions Active 06-07 15:34: 12 ANTIHISTAMIN ES Propensity to adverse reactions Active 06-07 15:34: 22 Medications Ordered Medication Name Filled Medication Name Start Date Stop Date Current Medication? Ordering Clinician Indication Dosage Frequency Signature (SIG) Comments Components gabapentin 100 mg capsule 2-06 00:00: 00 04-25 23:59 :00 No [id number] 1 capsule 3 TIMES DAILY 1 capsule 3 TIMES DAILY (route: oral) Med Classific ation: Central Nervous System Agents pantoprazol e 20 mg tablet,ann yed release 1-15 00:00: 00 04-25 23:59 :00 No [id number] 1 tablet DAILY 1 tablet DAILY (route: oral) Med Classific ation: Gastroint estinal Therapy Agents acidophilus 25 million cell-pectin , citrus 100 mg tablet 2-01 00:00: 00 04-25 23:59 :00 No [id number] 1 tablet DAILY 1 tablet DAILY (route: oral) Med Classific ation: Gastroint estinal Therapy Agents ascorbic acid (vitamin C) 250 mg tablet 2- 00:00: 00 04-25 23:59 :00 No [id number] 1 tablet 2 TIMES DAILY 1 tablet 2 TIMES DAILY (route: oral) Med Classific ation: Electroly te Balance-N utritiona l Products budesonide DR - ER 3 mg capsule,del ayed,extend ed release 2-01 00:00: 00 04-25 23:59 :00 No [id number] 1 capsule DAILY 1 capsule DAILY (route: oral) Med Classific ation: Gastroint estinal Therapy Agents cholecalcif valerie (vitamin D3) 50 mcg (2,000 unit) capsule 2- 00:00: 00 04-25 23:59 :00 No [id number] 1 capsule DAILY 1 capsule DAILY (route: oral) Med Classific ation: Electroly te Balance-N utritiona l Products Colace 100 mg capsule 2-01 00:00: 00 04-25 23:59 :00 No [id number] 1 capsule 2 TIMES DAILY 1 capsule 2 TIMES DAILY (route: oral) Med Classific ation: Gastroint estinal Therapy Agents melatonin 3 mg capsule 2-01 00:00: 00 04-25 23:59 :00 No [id number] 2 capsule BEDTIME 2 capsule BEDTIME (route: oral) Med Classific ation: Central Nervous System Agents nebivolol 10 mg tablet 2- 00:00: 00 04-25 23:59 :00 No [id number] 1 tablet DAILY 1 tablet DAILY (route: oral) Med Classific ation: Cardiovas cular Therapy Agents Pepto-Bismo l 262 mg chewable tablet 2- 00:00: 00 04-25 23:59 :00 No [id number] 3 tablet DAILY 3 tablet DAILY (route: oral) Med Classific ation: Gastroint estinal Therapy Agents Plavix 75 mg tablet 2- 00:00: 00 04-25 23:59 :00 No [id number] 1 tablet DAILY 1 tablet DAILY (route: oral) Med Classific ation: Hematolog ical Agents simvastatin 40 mg tablet 2- 00:00: 00 04-25 23:59 :00 No [id number] 1 tablet DAILY 1 tablet DAILY (route: oral) Med Classific ation: Cardiovas cular Therapy Agents spironolact one 50 mg tablet 2- 00:00: 00 04-25 23:59 :00 No [id number] 1 tablet DAILY 1 tablet DAILY (route: oral) Med Classific ation: Cardiovas cular Therapy Agents tramadol 50 mg tablet 2- 00:00: 00 04-25 23:59 :00 No [id number] 1 tablet BEDTIME 1 tablet BEDTIME (route: oral) Med Classific ation: Analgesic , Anti-infl ammatory or Antipyret ic Xarelto 2.5 mg tablet 2- 00:00: 00 04-25 23:59 :00 No [id number] 1 tablet 2 TIMES DAILY 1 tablet 2 TIMES DAILY (route: oral) Med Classific ation: Hematolog ical Agents cephalexin 500 mg capsule 3-01 00:00: 00 04-14 23:59 :00 No [id number] ANTIBIOTIC 1 capsule EVERY 8 HOURS 1 capsule EVERY 8 HOURS (route: oral) Med Classific ation: Anti-Infe ctive Agents budesonide DR - ER 3 mg capsule,del ayed,extend ed release 06-07 00:00: 00 Yes [id number] 1 capsule DAILY 1 capsule DAILY (route: oral) Med Classific ation: Gastroint estinal Therapy Agents cholecalcif valerie (vitamin D3) 50 mcg (2,000 unit) tablet 06-07 00:00: 00 Yes [id number] 1 tablet DAILY 1 tablet DAILY (route: oral) Med Classific ation: Electroly te Balance-N utritiona l Products clopidogrel 75 mg tablet 06-07 00:00: 00 Yes [id number] 1 tablet DAILY 1 tablet DAILY (route: oral) Med Classific ation: Hematolog ical Agents gabapentin 100 mg capsule 06-07 00:00: 00 06-07 23:59 :00 No [id number] 1 capsule 2 TIMES DAILY 1 capsule 2 TIMES DAILY (route: oral) Med Classific ation: Central Nervous System Agents Galzin 50 mg (zinc) capsule 06-07 00:00: 00 Yes [id number] 1 capsule DAILY 1 capsule DAILY (route: oral) Med Classific ation: Antidotes and other Reversal Agents Lactobacill us acidophilus 2 billion cell tablet 06-07 00:00: 00 Yes [id number] 1 tablet DAILY 1 tablet DAILY (route: oral) Med Classific ation: Gastroint estinal Therapy Agents melatonin 3 mg tablet 06-07 00:00: 00 Yes [id number] 2 tablet BEDTIME 2 tablet BEDTIME (route: oral) Med Classific ation: Central Nervous System Agents multivitami n tablet 06-07 00:00: 00 Yes [id number] 1 tablet DAILY 1 tablet DAILY (route: oral) Med Classific ation: Electroly te Balance-N utritiona l Products nebivolol 5 mg tablet 06-07 00:00: 00 Yes [id number] 2 tablet DAILY 2 tablet DAILY (route: oral) Med Classific ation: Cardiovas cular Therapy Agents pantoprazol e 20 mg tablet,ann yed release 06-07 00:00: 00 Yes [id number] 1 tablet DAILY 1 tablet DAILY (route: oral) Med Classific ation: Gastroint estinal Therapy Agents simvastatin 40 mg tablet 06-07 00:00: 00 Yes [id number] 1 tablet DAILY 1 tablet DAILY (route: oral) Med Classific ation: Cardiovas cular Therapy Agents spironolact one 50 mg tablet 06-07 00:00: 00 Yes [id number] 1 tablet DAILY 1 tablet DAILY (route: oral) Med Classific ation: Cardiovas cular Therapy Agents Vitamin C 250 mg tablet 06-07 00:00: 00 Yes [id number] 1 tablet 2 TIMES DAILY 1 tablet 2 TIMES DAILY (route: oral) Med Classific ation: Electroly te Balance-N utritiona l Products methenamine hippurate 1 gram tablet 06-26 00:00: 00 Yes [id number] 1 gram 2 TIMES DAILY 1 gram 2 TIMES DAILY (route: oral) Med Classific ation: Genitouri nary Therapy Immunizations Ordered Immunization Name Filled Immunization Name Date Status Comments Refusal Reason COVID BOOSTER, COVID BOOSTER 2023-11-22 00:00:00 INFLUENZA, TIV (INACTIVATED) 2023-11-22 00:00:00 Vital Signs Vital Name Observation Time Observation Value Commen ts Temperature 2024-07-31 09:50:00.000 98.2 [degF] Temperature 2024-07-24 12:39:00.000 97.9 [degF] Temperature 2024-07-17 10:26:00.000 98.2 [degF] Temperature 2024-07-10 12:14:00.000 99.7 [degF] Temperature 2024-07-06 11:44:00.000 98 [degF] Temperature 2024-07-06 09:07:00.000 97.6 [degF] Temperature 2024-06-26 11:11:00.000 98.3 [degF] Temperature 2024-06-26 08:41:00.000 97.8 [degF] Temperature 2024-06-21 09:35:00.000 98.2 [degF] Temperature 2024-06-20 09:10:16.000 99.3 [degF] Temperature 2024-06-19 10:21:00.000 98.3 [degF] Temperature 2024-06-14 10:24:04.000 98.7 [degF] Temperature 2024-06-13 08:59:00.000 97.8 [degF] Temperature 2024-06-13 08:54:00.000 97.8 [degF] Temperature 2024-06-12 11:46:00.000 99.1 [degF] Temperature 2024-06-09 11:31:27.000 97.8 [degF] Temperature 2024-06-06 11:00:00.000 97.3 [degF] BMI (%) 2024-06-06 10:20:04.000 19 kg/m2 Height 2024-06-06 10:19:39.000 70 [in_us] Pulse 2024-07-31 09:50:00.000 77 /min Pulse 2024-07-24 12:39:00.000 82 /min Pulse 2024-07-17 10:26:00.000 62 /min Pulse 2024-07-10 12:14:00.000 62 /min Pulse 2024-07-06 11:44:00.000 68 /min Pulse 2024-07-06 09:07:00.000 75 /min Pulse 2024-06-26 11:11:00.000 68 /min Pulse 2024-06-26 08:41:00.000 72 /min Pulse 2024-06-21 09:35:00.000 74 /min Pulse 2024-06-20 09:09:07.000 69 /min Pulse 2024-06-19 10:21:00.000 69 /min Pulse 2024-06-14 10:23:49.000 77 /min Pulse 2024-06-13 08:59:00.000 67 /min Pulse 2024-06-13 08:54:00.000 67 /min Pulse 2024-06-12 11:46:00.000 62 /min Pulse 2024-06-09 11:31:11.000 61 /min Pulse 2024-06-06 11:00:00.000 60 /min O2 Saturation (%) 2024-07-31 09:50:00.000 99 % O2 Saturation (%) 2024-07-24 12:39:00.000 96 % O2 Saturation (%) 2024-07-17 10:26:00.000 97 % O2 Saturation (%) 2024-07-10 12:14:00.000 99 % O2 Saturation (%) 2024-07-06 11:44:00.000 92 % O2 Saturation (%) 2024-07-06 09:07:00.000 100 % O2 Saturation (%) 2024-06-26 11:11:00.000 97 % O2 Saturation (%) 2024-06-19 10:21:00.000 98 % O2 Saturation (%) 2024-06-13 08:59:00.000 95 % O2 Saturation (%) 2024-06-13 08:54:00.000 95 % O2 Saturation (%) 2024-06-12 11:46:00.000 96 % O2 Saturation (%) 2024-06-06 11:00:00.000 95 % Respirations 2024-07-31 09:50:00.000 16 /min Respirations 2024-07-24 12:39:00.000 18 /min Respirations 2024-07-17 10:26:00.000 16 /min Respirations 2024-07-10 12:14:00.000 18 /min Respirations 2024-07-06 11:44:00.000 18 /min Respirations 2024-07-06 09:07:00.000 16 /min Respirations 2024-06-26 11:11:00.000 16 /min Respirations 2024-06-26 08:41:00.000 16 /min Respirations 2024-06-21 09:35:00.000 18 /min Respirations 2024-06-20 09:09:13.000 16 /min Respirations 2024-06-19 10:21:00.000 18 /min Respirations 2024-06-14 10:23:57.000 16 /min Respirations 2024-06-13 08:59:00.000 16 /min Respirations 2024-06-13 08:54:00.000 16 /min Respirations 2024-06-12 11:46:00.000 18 /min Respirations 2024-06-09 11:31:16.000 16 /min Respirations 2024-06-06 11:00:00.000 15 /min Weight (lbs) 2024-07-24 12:39:00.000 133 [lb_av] Weight (lbs) 2024-06-12 11:46:00.000 139 [lb_av] Weight (lbs) 2024-06-06 10:20:04.000 139 [lb_av] Systolic Blood Pressure 2024-07-31 09:50:00.000 118 mm [Hg] Systolic Blood Pressure 2024-07-24 12:39:00.000 124 mm [Hg] Systolic Blood Pressure 2024-07-17 10:26:00.000 132 mm [Hg] Systolic Blood Pressure 2024-07-10 12:14:00.000 142 mm [Hg] Systolic Blood Pressure 2024-07-06 11:44:00.000 122 mm [Hg] Systolic Blood Pressure 2024-07-06 09:07:00.000 143 mm [Hg] Systolic Blood Pressure 2024-06-26 11:11:00.000 125 mm [Hg] Systolic Blood Pressure 2024-06-26 08:41:00.000 138 mm [Hg] Systolic Blood Pressure 2024-06-21 09:35:00.000 130 mm [Hg] Systolic Blood Pressure 2024-06-20 09:08:36.000 187 mm [Hg] Systolic Blood Pressure 2024-06-19 10:21:00.000 126 mm [Hg] Systolic Blood Pressure 2024-06-14 10:23:41.000 134 mm [Hg] Systolic Blood Pressure 2024-06-13 08:59:00.000 149 mm [Hg] Systolic Blood Pressure 2024-06-13 08:54:00.000 149 mm [Hg] Systolic Blood Pressure 2024-06-12 11:46:00.000 129 mm [Hg] Systolic Blood Pressure 2024-06-09 11:31:03.000 133 mm [Hg] Systolic Blood Pressure 2024-06-06 11:00:00.000 145 mm [Hg] Diastolic Blood Pressure 2024-07-31 09:50:00.000 74 mm [Hg] Diastolic Blood Pressure 2024-07-24 12:39:00.000 76 mm [Hg] Diastolic Blood Pressure 2024-07-17 10:26:00.000 78 mm [Hg] Diastolic Blood Pressure 2024-07-10 12:14:00.000 68 mm [Hg] Diastolic Blood Pressure 2024-07-06 11:44:00.000 76 mm [Hg] Diastolic Blood Pressure 2024-07-06 09:07:00.000 66 mm [Hg] Diastolic Blood Pressure 2024-06-26 11:11:00.000 65 mm [Hg] Diastolic Blood Pressure 2024-06-26 08:41:00.000 72 mm [Hg] Diastolic Blood Pressure 2024-06-21 09:35:00.000 74 mm [Hg] Diastolic Blood Pressure 2024-06-20 09:08:36.000 96 mm [Hg] Diastolic Blood Pressure 2024-06-19 10:21:00.000 67 mm [Hg] Diastolic Blood Pressure 2024-06-14 10:23:41.000 62 mm [Hg] Diastolic Blood Pressure 2024-06-13 08:59:00.000 73 mm [Hg] Diastolic Blood Pressure 2024-06-13 08:54:00.000 73 mm [Hg] Diastolic Blood Pressure 2024-06-12 11:46:00.000 64 mm [Hg] Diastolic Blood Pressure 2024-06-09 11:31:03.000 69 mm [Hg] Diastolic Blood Pressure 2024-06-06 11:00:00.000 62 mm [Hg] Plan of Treatment Planned Activity Planned Date Details Comments Future Scheduled Test SKILLED NU RSE TO EVALUATE PATIENT, IDENTIFY PRIMARY AND CO-MORBID CONDITIONS CODED PER CODING GUIDELINES, AND DEVELOP PATIENT SPECIFIC PLAN OF CARE THAT INCLUDES PATIENT GOAL FOR HOME HEALTH. [code = SKILLED NURSE TO EVALUATE PATIENT, IDENTIFY PRIMARY AND CO-MORBID CONDITIONS CODED PER CODING GUIDELINES, AND DEVELOP PATIENT SPECIFIC PLAN OF CARE THAT INCLUDES PATIENT GOAL FOR HOME HEALTH.] Future Scheduled Test SKILLED NU RSE TO REVIEW PATIENT MEDICATIONS (PRESCRIPTION/OTC). INSTRUCT PATIENT/CAREGIVER ON ALL MEDICATIONS INCLUDING PURPOSE, WHEN TO TAKE, IMPORTANCE OF MEDICATION ADHERENCE, MONITORING OF EFFECTIVENESS, ADVERSE DRUG REACTIONS, POSSIBLE SIDE EFFECTS, AND WHEN TO NOTIFY AGENCY OR PHYSICIAN/PROVIDER OF ANY CONCERNS. [code = SKILLED NURSE TO REVIEW PATIENT MEDICATIONS (PRESCRIPTION/OTC). INSTRUCT PATIENT/CAREGIVER ON ALL MEDICATIONS INCLUDING PURPOSE, WHEN TO TAKE, IMPORTANCE OF MEDICATION ADHERENCE, MONITORING OF EFFECTIVENESS, ADVERSE DRUG REACTIONS, POSSIBLE SIDE EFFECTS, AND WHEN TO NOTIFY AGENCY OR PHYSICIAN/PROVIDER OF ANY CONCERNS.] Future Scheduled Test PATIENT CALERO S A RISK OF HOSPITALIZATION AND ED USE. SKILLED NURSE TO ESTABLISH SUPPORT MEASURES TO MINIMIZE RISK OF HOSPITALIZATION AND ED USE, AND INSTRUCT PATIENT/CAREGIVER ON METHODS TO REDUCE AVOIDABLE HOSPITALIZATION AND ED USE. [code = PATIENT HAS A RISK OF HOSPITALIZATION AND ED USE. SKILLED NURSE TO ESTABLISH SUPPORT MEASURES TO MINIMIZE RISK OF HOSPITALIZATION AND ED USE, AND INSTRUCT PATIENT/CAREGIVER ON METHODS TO REDUCE AVOIDABLE HOSPITALIZATION AND ED USE.] Future Scheduled Test SKILLED NU RSE TO PROVIDE INSTRUCTION TO PATIENT/CAREGIVER RELATED TO DISCHARGE PLANNING. [code = SKILLED NURSE TO PROVIDE INSTRUCTION TO PATIENT/CAREGIVER RELATED TO DISCHARGE PLANNING.] Future Scheduled Test SKILLED NU RSE TO PERFORM ENVIRONMENTAL SAFETY RISK ASSESSMENT AND FALL RISK ASSESSMENT AND PROVIDE INSTRUCTION TO IMPLEMENT ENVIRONMENTAL SAFETY AND FALL PREVENTION STRATEGIES THROUGHOUT THE CERTIFICATION PERIOD. SKILLED NURSE WILL MAINTAIN SITUATIONAL AWARENESS AND WILL NOTIFY CLINICAL EXECUTIVE WELLNESS PROGRAMS DIRECTOR AND PHYSICIAN/PROVIDER WITH ANY CHANGE IN CONDITION. [code = SKILLED NURSE TO PERFORM ENVIRONMENTAL SAFETY RISK ASSESSMENT AND FALL RISK ASSESSMENT AND PROVIDE INSTRUCTION TO IMPLEMENT ENVIRONMENTAL SAFETY AND FALL PREVENTION STRATEGIES THROUGHOUT THE CERTIFICATION PERIOD. SKILLED NURSE WILL MAINTAIN SITUATIONAL AWARENESS AND WILL NOTIFY CLINICAL EXECUTIVE WELLNESS PROGRAMS DIRECTOR AND PHYSICIAN/PROVIDER WITH ANY CHANGE IN CONDITION.] Future Scheduled Test SKILLED NU RSE FOR OBSERVATION AND ASSESSMENT OF PATIENTS PAIN LEVEL AND EFFECTIVENESS OF PAIN MANAGEMENT REGIMEN. SKILLED NURSE TO INSTRUCT PATIENT/CAREGIVER REGARDING PHARMACOLOGIC AND NON-PHARMACOLOGIC PAIN CONTROL MEASURES. SKILLED NURSE TO REPORT TO PHYSICIAN IF PAIN IS UNCONTROLLED WITH CURRENT PAIN MANAGEMENT REGIMEN. [code = SKILLED NURSE FOR OBSERVATION AND ASSESSMENT OF PATIENTS PAIN LEVEL AND EFFECTIVENESS OF PAIN MANAGEMENT REGIMEN. SKILLED NURSE TO INSTRUCT PATIENT/CAREGIVER REGARDING PHARMACOLOGIC AND NON-PHARMACOLOGIC PAIN CONTROL MEASURES. SKILLED NURSE TO REPORT TO PHYSICIAN IF PAIN IS UNCONTROLLED WITH CURRENT PAIN MANAGEMENT REGIMEN.] Future Scheduled Test SKILLED NU RSE TO ASSESS PATIENT'S SKIN INTEGRITY AND INSTRUCT PATIENT/CAREGIVER ON MEASURES TO PREVENT PRESSURE ULCERS. [code = SKILLED NURSE TO ASSESS PATIENT'S SKIN INTEGRITY AND INSTRUCT PATIENT/CAREGIVER ON MEASURES TO PREVENT PRESSURE ULCERS.] Future Scheduled Test SKILLED NU RSE TO PROVIDE TEACHING ON SIGNS AND SYMPTOMS AND MANAGEMENT OF HYPERTENSION. [code = SKILLED NURSE TO PROVIDE TEACHING ON SIGNS AND SYMPTOMS AND MANAGEMENT OF HYPERTENSION.] Future Scheduled Test SKILLED NU RSE TO PROVIDE TEACHING/REINFORCEMENT RELATED TO URINARY INCONTINENCE. [code = SKILLED NURSE TO PROVIDE TEACHING/REINFORCEMENT RELATED TO URINARY INCONTINENCE.] Future Scheduled Test SKILLED NU RSE MAY COLLECT URINE SAMPLE FOR URINE REAGENT STRIP TESTING AND/OR URINALYSIS WITH CS 1-3 PRN IF INDICATED FOR SIGNS AND SYMPTOMS OF UTI. IF REAGENT STRIP TEST IS POSITIVE FOR UTI, SKILLED NURSE TO TAKE URINE SAMPLE TO LAB FOR URINE CS AND REPORT RESULTS TO PHYSICIAN. [code = SKILLED NURSE MAY COLLECT URINE SAMPLE FOR URINE REAGENT STRIP TESTING AND/OR URINALYSIS WITH CS 1-3 PRN IF INDICATED FOR SIGNS AND SYMPTOMS OF UTI. IF REAGENT STRIP TEST IS POSITIVE FOR UTI, SKILLED NURSE TO TAKE URINE SAMPLE TO LAB FOR URINE CS AND REPORT RESULTS TO PHYSICIAN.] Future Scheduled Test SKILLED NU RSE FOR O/A, TEACHING RELATED TO DIVERTICULOSIS OF THE LARGE INTESTINE/SMALL BOWEL OBSTRUCTION FOR EARLY IDENTIFICATION OF EXACERBATION OF DISEASE PROCESS. [code = SKILLED NURSE FOR O/A, TEACHING RELATED TO DIVERTICULOSIS OF THE LARGE INTESTINE/SMALL BOWEL OBSTRUCTION FOR EARLY IDENTIFICATION OF EXACERBATION OF DISEASE PROCESS.] Future Scheduled Test SKILLED NU RSE FOR INSTRUCTION/ REINFORCEMENT OF NEEDS RELATED TO NUTRITION/HYDRATION. [code = SKILLED NURSE FOR INSTRUCTION/ REINFORCEMENT OF NEEDS RELATED TO NUTRITION/HYDRATION.] Future Scheduled Test SKILLED NU RSE FOR O/A OF SELF-CARE DEFICITS AND TO PROVIDE TEACHING RELATED TO SAFE PROVISION OF ADLS. [code = SKILLED NURSE FOR O/A OF SELF-CARE DEFICITS AND TO PROVIDE TEACHING RELATED TO SAFE PROVISION OF ADLS.] Future Scheduled Test SKILLED NU RSE FOR MEDICATION ADMINISTRATION PER MEDICATION LIST TO BE PERFORMED EVERY VISIT [code = SKILLED NURSE FOR MEDICATION ADMINISTRATION PER MEDICATION LIST TO BE PERFORMED EVERY VISIT] Future Scheduled Test PHYSICAL T HERAPIST TO EVALUATE PATIENT FOR WEAKNESS, ADLS ... [code = PHYSICAL THERAPIST TO EVALUATE PATIENT FOR WEAKNESS, ADLS ...] Future Scheduled Test OCCUPATION AL THERAPIST TO EVALUATE PATIENT FOR WEAKNESS, ADLS ... [code = OCCUPATIONAL THERAPIST TO EVALUATE PATIENT FOR WEAKNESS, ADLS ...] Future Scheduled Test HOME HEALT H AIDE SERVICES FOR ASSISTANCE WITH PERSONAL CARE AND ADLS SECONDARY TO FUNCTIONAL LIMITATIONS [code = HOME HEALTH AIDE SERVICES FOR ASSISTANCE WITH PERSONAL CARE AND ADLS SECONDARY TO FUNCTIONAL LIMITATIONS] Future Scheduled Test PHYSICAL T HERAPIST TO EVALUATE PATIENT SECONDARY TO FUNCTIONAL DEFICITS/SAFETY CONCERNS. P.T. TO ASSESS BEST PRACTICE INTERVENTIONS TO ASSIST PT TO IMPROVE/STABILIZE MEDICAL STATUS AND PREVENT RE-HOSPITALIZATION. MEASURES INCLUDING REVIEW AND IDENTIFICATION OF CONCERNS FOR THE FOLLOWING AREAS: ENVIRONMENTAL SAFETY ISSUES AND FALLS, EQUIPMENT NEEDS, DECLINE OF FUNCTION, PAIN, AND DISEASE MANAGEMENT. P.T. TO ESTABLISH/UPGRADE/DOWNGRADE A HEP AND INSTRUCT PT ON EXERCISE PRECAUTIONS. THE HEP MAY INCLUDE SEATED/SUPINE/STANDING THER EX TARGETING BLE/CORE STRENGTH/FLEXIBILITY AND BALANCE TRAINING APPROPRIATE TO IMPROVE FUNCTIONAL STRENGTH AND BALANCE. PHYSICAL THERAPY TO INSTRUCT PATIENT/CAREGIVER ON GAIT TRAINING TECHNIQUES USING APPROPRIATE ASSISTIVE DEVICE, PROPER BODY MECHANICS TO IMPROVE MOBILITY, AND PREVENT INJURY OF PATIENT AND/OR CAREGIVER. PHYSICAL THERAPY TO ASSESS AND RECOMMEND HOME SAFETY ADAPTATIONS AND EDUCATE PATIENT /CAREGIVER ON FALL PREVENTION STRATEGIES. PHYSICAL THERAPY TO INSTRUCT PATIENT/CAREGIVER ON BALANCE AND BALANCE STRATEGIES TO IMPROVE SAFE MOBILITY AND REDUCE RISK FOR FALL AND INJURY [code = PHYSICAL THERAPIST TO EVALUATE PATIENT SECONDARY TO FUNCTIONAL DEFICITS/SAFETY CONCERNS. P.T. TO ASSESS BEST PRACTICE INTERVENTIONS TO ASSIST PT TO IMPROVE/STABILIZE MEDICAL STATUS AND PREVENT RE-HOSPITALIZATION. MEASURES INCLUDING REVIEW AND IDENTIFICATION OF CONCERNS FOR THE FOLLOWING AREAS: ENVIRONMENTAL SAFETY ISSUES AND FALLS, EQUIPMENT NEEDS, DECLINE OF FUNCTION, PAIN, AND DISEASE MANAGEMENT. P.T. TO ESTABLISH/UPGRADE/DOWNGRADE A HEP AND INSTRUCT PT ON EXERCISE PRECAUTIONS. THE HEP MAY INCLUDE SEATED/SUPINE/STANDING THER EX TARGETING BLE/CORE STRENGTH/FLEXIBILITY AND BALANCE TRAINING APPROPRIATE TO IMPROVE FUNCTIONAL STRENGTH AND BALANCE. PHYSICAL THERAPY TO INSTRUCT PATIENT/CAREGIVER ON GAIT TRAINING TECHNIQUES USING APPROPRIATE ASSISTIVE DEVICE, PROPER BODY MECHANICS TO IMPROVE MOBILITY, AND PREVENT INJURY OF PATIENT AND/OR CAREGIVER. PHYSICAL THERAPY TO ASSESS AND RECOMMEND HOME SAFETY ADAPTATIONS AND EDUCATE PATIENT /CAREGIVER ON FALL PREVENTION STRATEGIES. PHYSICAL THERAPY TO INSTRUCT PATIENT/CAREGIVER ON BALANCE AND BALANCE STRATEGIES TO IMPROVE SAFE MOBILITY AND REDUCE RISK FOR FALL AND INJURY] Goal 2024-07-31 Patient Goal - TAKE A SHOWER BY HERSELF Goal Provider Goal - A PLAN OF CARE WILL BE ESTABLISHED THAT MEETS PATIENT'S RETIREMENT NEEDS AND INCLUDES PATIENT GOAL FOR HOME HEALTH. Goal Provider Goal - PATIENT/CAREGIVER WILL VERBALIZE UNDERSTANDING OF EDUCATION PROVIDED ON MEDICATIONS BY THE END OF THE CERTIFICATION PERIOD. Goal Provider Goal - PATIENT WILL HAVE SUPPORT MEASURES ESTABLISHED TO PREVENT HOSPITALIZATION AND ED USE AND PATIENT/CAREGIVER WILL VERBALIZE/DEMONSTRATE METHODS TO REDUCE AVOIDABLE HOSPITALIZATION AND ED USE BY END OF EPISODE. Goal Provider Goal - PATIENT/CAREGIVER WILL VERBALIZE UNDERSTANDING OF DISCHARGE PLANNING INSTRUCTIONS BY DATE OF DISCHARGE. Goal Provider Goal - PATIENT/CAREGIVER WILL VERBALIZE/DEMONSTRATE EFFECTIVE ENVIRONMENTAL SAFETY AND FALL PREVENTION STRATEGIES, WILL REMAIN SAFE IN THE COMMUNITY, AND WILL BE FREE OF DANGER TO SELF AND OTHERS THROUGHOUT THE CERTIFICATION PERIOD. Goal Provider Goal - PATIENT/CAREGIVER WILL DEMONSTRATE UNDERSTANDING OF PHARMACOLOGIC AND NONPHARMACOLOGIC PAIN CONTROL MEASURES AND PATIENT WILL HAVE IMPROVEMENT IN PAIN INTERFERING WITH ACTIVITY EVIDENCED BY PAIN CONTROLLED AT LEVEL THAT IS ACCEPTABLE TO THE PATIENT BY END OF CERTIFICATION PERIOD. Goal Provider Goal - PATIENT/CAREGIVER WILL VERBALIZE UNDERSTANDING OF PRESSURE ULCER PREVENTION BY END OF THE EPISODE. Goal Provider Goal - PATIENT/CAREGIVER WILL VERBALIZE SIGNS AND SYMPTOMS OF HYPERTENSION AND WILL BE ABLE TO DEMONSTRATE ABILITY TO MANAGE EXACERBATION BY END OF THE EPISODE. Goal Provider Goal - PATIENT / CAREGIVER WILL VERBALIZE UNDERSTANDING OF EFFECTS OF URINARY INCONTINENCE BY THE END OF THE CERTIFICATION PERIOD. Goal Provider Goal - URINE SPECIMEN WILL BE OBTAINED PRN FOR SIGNS AND SYMPTOMS OF UTI AND RESULTS WILL BE REPORTED TO PHYSICIAN THROUGHOUT THE CERTIFICATION PERIOD. Goal Provider Goal - EXACERBATIONS OF DIVERTICULOSIS/SMALL BOWEL OBSTRUCTION ... GASTROINTESTINAL DISEASE WILL BE PROMPTLY IDENTIFIED AND INTERVENTIONS IMPLEMENTED TO MINIMIZE RISKS TO PATIENT BY END OF EPISODE. Goal Provider Goal - PATIENT/CAREGIVER WILL DEMONSTRATE ABILITY TO SELF MANAGE NEEDS RELATED TO NUTRITION/HYDRATION THROUGHOUT THE EPISODE. Goal Provider Goal - PATIENT/CAREGIVER WILL VERBALIZE/DEMONSTRATE UNDERSTANDING OF SAFE PROVISION OF ADLS BY THE END OF THE CERTIFICATION PERIOD. Goal Provider Goal - PATIENT WILL COMPLY WITH MEDICATION WHEN NURSE ADMINISTERS THROUGHOUT CERTIFICATION PERIOD. Goal Provider Goal - A PHYSICAL THERAPY EVALUATION TO BE COMPLETED WITH RECOMMENDATIONS AND/OR WRITTEN PLAN OF TREATMENT ESTABLISHED FOR PHYSICIANS SIGNATURE. Goal Provider Goal - OCCUPATIONAL THERAPY EVALUATION TO BE COMPLETED WITH RECOMMENDATIONS AND WRITTEN PLAN OF TREATMENT ESTABLISHED FOR THE PHYSICIANS SIGNATURE. Goal Provider Goal - PATIENT WILL RECEIVE PERSONAL CARE AND ADL ASSISTANCE. Goal Provider Goal - PHYSICAL THERAPY EVALUATION TO BE COMPLETED WITH RECOMMENDATIONS AND/OR WRITTEN TREATMENT PLAN OF CARE ESTABLISHED FOR THE PHYSICIANS SIGNATURE. VO FOR SKILLED P.T. POC (1W3) RECEIVED FROM ALDO, AGENT OF DR. MCMAHON, ON 06/13/24 @ 10:56AM. PATIENT/CAREGIVER VERBALIZES UNDERSTANDING OF THE INITIAL BEST PRACTICE RECOMMENDATIONS. PHYSICIAN TO BE NOTIFIED APPROPRIATE FOR ANY CHANGES OR COMPLICATIONS THROUGHOUT THE CERTIFICATION PERIOD. PATIENT/CAREGIVER WILL PERFORM THERAPEUTIC EXERCISE/S AND DEMONSTRATE PARTICIPATION IN A HOME PROGRAM. PATIENT/CAREGIVER WILL DEMONSTRATE IMPROVED GAIT TECHNIQUES TO MINIMIZE RISK OF INJURY. PATIENT/CAREGIVER WILL DEMONSTRATE/VERBALIZE UNDERSTANDING OF RECOMMENDATIONS TO INCREASE SAFETY IN THE HOME AND FALL PREVENTION. PATIENT/CAREGIVER WILL DEMONSTRATE IMPROVED BALANCE AND REDUCE THE RISK OF FALLS AND INJURY. Reason for Visit INDEPENDENT WITH USE OF ASSISTIVE DEVICE Progress Notes Progress Notes <paragraph>[Visit Date: 2024 by ALEKSANDRA MUNSON RN]:</paragraph><paragraph>PROVIDED CARE: DISCHARGE INSTRUCTION DISEASE MANAGEMENT EDUCATION FALL PREVENTION EDUCATION REVIEWED ALL MEDICATIONS</paragraph> Encounters Start Date/Time End Date/Time Encounter Type Admission Type Attending [facility] Care Department Encounter ID Discharge Date Discharge Status Discharge Condition Discharge Reason Percent Goals Met 2024-06-06 00:00:00 2024-07-31 00:00:00 Outpatient ALEKSANDRA MURRAY [facility] [id number] 2024-07-31 00:00:00 DISCHARGE TO HOME OR SELF CARE INDEPENDEN T WITH USE OF ASSISTIVE DEVICE GOALS MET ( ONLY) 74.29
--- OUTSIDE RECORDS SUMMARY | 2024-07-30 20:00 | XMS_ITS | Clinical Summary ---
Author Organization Unknown Care Team Providers Care Software Database Architect Name Role Phone LISANDRO KRISHNAN, GYPSY Unavailable Unavailable ELLA MUKHERJEE, JOANN Unavailable Unavailable FRETZ OT, LONG Unavailable Unavailable LEFTY PT, LILI Unavailable Unavailable ASLHEY SESAYN, NAT Unavailable Unavailable JEIMY RN, ALEKSANDRA Unavailable Unavailable ABEL HOOD, ROSEMARIE Unavailable Unavailable MICHELLE (KARINA) KARINA- ROCKET ENGINE COMPONENT MECHANIC, MARY ELLEN Unavailable Unava ilable Payers Payer Name Policy Type Policy Number Effective Date Expira tion Date MEDICARE - [place] - PDGM [id number] Problems Condition Name Condition Details Condition Category [...] NOT SPECIFIED Active 02-08 00:00: 00 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, RIGHT LEG Active 02-08 00:00: 00 VENOUS INSUFFICIENC Y (CHRONIC) (PERIPHERAL) Active 02-08 00:00: 00 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 Active 02-08 00:00: 00 UNSPECIFIED CATARACT Active 02-08 00:00: 00 HYPERLIPIDEM IA, UNSPECIFIED Active 02-08 00:00: 00 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 02-08 [...] OF NICOTINE DEPENDENCE Active 02-08 00:00: 00 COIL WRAPPER (CURRENT) USE OF INHALED STEROIDS Active 02-08 00:00: 00 MCC (CURRENT) USE OF ANTITHROMBOT ICS/ANTIPLAT ELETS Active [...] 2-06 00:00: 00 04-25 23:59 :00 No [id number] 1 capsule 3 TIMES DAILY 1 capsule 3 TIMES DAILY (route: oral) Med Classific ation: Central Nervous System Agents pantoprazol e 20 mg tablet,ann yed release 1-15 00:00: 00 04-25 23:59 :00 No [id number] 1 tablet DAILY 1 tablet DAILY (route: oral) Med Classific ation: Gastroint estinal Therapy Agents acidophilus 25 million cell-pectin , citrus 100 mg tablet 2-01 00:00: 00 04-25 23:59 :00 No [id number] 1 tablet DAILY 1 tablet DAILY (route: oral) Med Classific ation: Gastroint estinal Therapy Agents ascorbic acid (vitamin C) 250 mg tablet 2- 00:00: 00 04-25 23:59 :00 No [id number] 1 tablet 2 TIMES DAILY 1 tablet 2 TIMES DAILY (route: oral) Med Classific ation: Electroly te Balance-N utritiona l Products budesonide DR - ER 3 mg capsule,del ayed,extend ed release 2-01 00:00: 00 04-25 23:59 :00 No [id number] 1 capsule DAILY 1 capsule DAILY (route: oral) Med Classific ation: Gastroint estinal Therapy Agents cholecalcif valerie (vitamin D3) 50 mcg (2,000 unit) capsule 2- 00:00: 00 04-25 23:59 :00 No [id number] 1 capsule DAILY 1 capsule DAILY (route: oral) Med Classific ation: Electroly te Balance-N utritiona l Products Colace 100 mg capsule 2-01 00:00: 00 04-25 23:59 :00 No [id number] 1 capsule 2 TIMES DAILY 1 capsule 2 TIMES DAILY (route: oral) Med Classific ation: Gastroint estinal Therapy Agents melatonin 3 mg capsule 2-01 00:00: 00 04-25 23:59 :00 No [id number] 2 capsule BEDTIME 2 capsule BEDTIME (route: oral) Med Classific ation: Central Nervous System Agents nebivolol 10 mg tablet 2- 00:00: 00 04-25 23:59 :00 No [id number] 1 tablet DAILY 1 tablet DAILY (route: oral) Med Classific ation: Cardiovas cular Therapy Agents Pepto-Bismo l 262 mg chewable tablet 2- 00:00: 00 04-25 23:59 :00 No [id number] 3 tablet DAILY 3 tablet DAILY (route: oral) Med Classific ation: Gastroint estinal Therapy Agents Plavix 75 mg tablet 2- 00:00: 00 04-25 23:59 :00 No [id number] 1 tablet DAILY 1 tablet DAILY (route: oral) Med Classific ation: Hematolog ical Agents simvastatin 40 mg tablet 2- 00:00: 00 04-25 23:59 :00 No [id number] 1 tablet DAILY 1 tablet DAILY (route: oral) Med Classific ation: Cardiovas cular Therapy Agents spironolact one 50 mg tablet 2- 00:00: 00 04-25 23:59 :00 No [id number] 1 tablet DAILY 1 tablet DAILY (route: oral) Med Classific ation: Cardiovas cular Therapy Agents tramadol 50 mg tablet 2- 00:00: 00 04-25 23:59 :00 No [id number] 1 tablet BEDTIME 1 tablet BEDTIME (route: oral) Med Classific ation: Analgesic , Anti-infl ammatory or Antipyret ic Xarelto 2.5 mg tablet 2- 00:00: 00 04-25 23:59 :00 No [id number] 1 tablet 2 TIMES DAILY 1 tablet 2 TIMES DAILY (route: oral) Med Classific ation: Hematolog ical Agents cephalexin 500 mg capsule 3-01 00:00: 00 04-14 23:59 :00 No [id number] ANTIBIOTIC 1 capsule EVERY 8 HOURS 1 capsule EVERY 8 HOURS (route: oral) Med Classific ation: Anti-Infe ctive Agents budesonide DR - ER 3 mg capsule,del ayed,extend ed release 06-07 00:00: 00 Yes [id number] 1 capsule DAILY 1 capsule DAILY (route: oral) Med Classific ation: Gastroint estinal Therapy Agents cholecalcif valerie (vitamin D3) 50 mcg (2,000 unit) tablet 06-07 00:00: 00 Yes [id number] 1 tablet DAILY 1 tablet DAILY (route: oral) Med Classific ation: Electroly te Balance-N utritiona l Products clopidogrel 75 mg tablet 06-07 00:00: 00 Yes [id number] 1 tablet DAILY 1 tablet DAILY (route: oral) Med Classific ation: Hematolog ical Agents gabapentin 100 mg capsule 06-07 00:00: 00 06-07 23:59 :00 No [id number] 1 capsule 2 TIMES DAILY 1 capsule 2 TIMES DAILY (route: oral) Med Classific ation: Central Nervous System Agents Galzin 50 mg (zinc) capsule 06-07 00:00: 00 Yes [id number] 1 capsule DAILY 1 capsule DAILY (route: oral) Med Classific ation: Antidotes and other Reversal Agents Lactobacill us acidophilus 2 billion cell tablet 06-07 00:00: 00 Yes [id number] 1 tablet DAILY 1 tablet DAILY (route: oral) Med Classific ation: Gastroint estinal Therapy Agents melatonin 3 mg tablet 06-07 00:00: 00 Yes [id number] 2 tablet BEDTIME 2 tablet BEDTIME (route: oral) Med Classific ation: Central Nervous System Agents multivitami n tablet 06-07 00:00: 00 Yes [id number] 1 tablet DAILY 1 tablet DAILY (route: oral) Med Classific ation: Electroly te Balance-N utritiona l Products nebivolol 5 mg tablet 06-07 00:00: 00 Yes [id number] 2 tablet DAILY 2 tablet DAILY (route: oral) Med Classific ation: Cardiovas cular Therapy Agents pantoprazol e 20 mg tablet,ann yed release 06-07 00:00: 00 Yes [id number] 1 tablet DAILY 1 tablet DAILY (route: oral) Med Classific ation: Gastroint estinal Therapy Agents simvastatin 40 mg tablet 06-07 00:00: 00 Yes [id number] 1 tablet DAILY 1 tablet DAILY (route: oral) Med Classific ation: Cardiovas cular Therapy Agents spironolact one 50 mg tablet 06-07 00:00: 00 Yes [id number] 1 tablet DAILY 1 tablet DAILY (route: oral) Med Classific ation: Cardiovas cular Therapy Agents Vitamin C 250 mg tablet 06-07 00:00: 00 Yes [id number] 1 tablet 2 TIMES DAILY 1 tablet 2 TIMES DAILY (route: oral) Med Classific ation: Electroly te Balance-N utritiona l Products methenamine hippurate 1 gram tablet 06-26 00:00: 00 Yes [id number] 1 gram 2 TIMES DAILY 1 gram [...] MAINTAIN SITUATIONAL AWARENESS AND WILL NOTIFY CLINICAL ROCKET ENGINE TESTER AND PHYSICIAN/PROVIDER WITH ANY CHANGE IN CONDITION. [code = SKILLED NURSE TO PERFORM ENVIRONMENTAL SAFETY RISK ASSESSMENT AND FALL RISK ASSESSMENT AND PROVIDE INSTRUCTION TO IMPLEMENT ENVIRONMENTAL SAFETY AND FALL PREVENTION STRATEGIES THROUGHOUT THE CERTIFICATION PERIOD. SKILLED NURSE WILL MAINTAIN SITUATIONAL AWARENESS AND WILL NOTIFY CLINICAL ROCKET ENGINE TESTER AND PHYSICIAN/PROVIDER WITH ANY CHANGE IN CONDITION.] [...] CARE WILL BE ESTABLISHED THAT MEETS PATIENT'S [facility] NEEDS AND INCLUDES PATIENT GOAL FOR HOME [...] End Date/Time Encounter Type Admission Type Attending [facility] Care Department Encounter ID Discharge Date Discharge Status Discharge Condition Discharge Reason Percent Goals Met 2024-06-06 00:00:00 2024-07-31 00:00:00 Outpatient ALEKSANDRA MURRAY [facility] [id number] 2024-07-31 00:00:00 DISCHARGE TO HOME OR SELF CARE INDEPENDEN T WITH USE OF ASSISTIVE DEVICE GOALS MET ( ONLY) 74.29
[2024-08-06 20:29] VITALS: BP 138/66; PULSE 75; TEMP 36.5; O2SAT 99; BMI 19.4
--- OUTSIDE RECORDS SUMMARY | 2024-08-06 20:32 | XMS_ITS | Encounter Summary ---
Author Organization [facility] Address [id number] [address] [place] [address] Care Team Providers Care Hog Stomach Preparer Name Role Phone Shirlene Vergara MD Primary Care Provider [phone] Encounter Details Date Type Department Care Team (Late st Contact Info) Description 11/17/2023 Orders Only [facility] [address] [facility] [address] [place] [address] Deuce Kirkland MD [address], [facility] [address] [place] [address] Social History Tobacco Use Types Packs/Day Years Used Date Smoking Tobacco: Former Cigarettes Smokeless Tobacco: Never Comments:QUIT IN 1989 Alcohol Use Standard Drinks/Week Comments Yes 1 (1 standard drink = 0.6 oz pur e alcohol) [facility] Utilities Answer Date Recorded In the past 12 months has [employer] electric, gas, oil, or water company threatened [...] 11/18/2023 9:33 PM Gigi Steele RN * Question Answer Date of Assessment Author Q1: How often do you have a drink containing alcohol? Monthly or less 11/18/2023 9:33 PM Gigi Steele RN Q2: How many drinks containing alcohol do you have on a typical day when you are drinking? 1 or 2 11/18/2023 9:33 PM Gigi Steele RN Q3: How often do you have six or more drinks on one occasion? Never 11/18/2023 9:33 PM Gigi Steele RN * Question Answer Date of Assessment Author Functional Status Independent 11/18/2023 9:35 PM EDT Gigi Collier, RN documented as of this encounter Plan of Treatment Upcoming Encounters Date Type Department Care Team (Late st Contact Info) Description 08/10/2024 10:10 AM EDT Office Visit [facility] [place] [address] [place] [address] Deuce Kirkland MD [address], [address] [address] 01/25/2025 11:00 AM EST Office Visit [facility] [place] [address] [place] [address] Deuce Kirkland MD [address], [facility] [address] [place] [address] documented as of this encounter Procedures Procedure [...] on filedocumented in this encounter Care Teams Hog Stomach Preparer Relationship Specialty Start Date End Date Shirlene Vergara MD [address] [place] [id number] PCP - General Family Medicine 04/10/22 documented as of this encounter
--- OUTSIDE RECORDS SUMMARY | 2024-08-06 20:32 | XMS_ITS | Encounter Summary ---
Author Organization [facility] Address [address] [place] [address] Care Team Providers Care Link Trainer Teacher Name Role Phone Shirlene Vergara MD Primary Care Provider [phone] Encounter Details Date Type Department Care Team (Late st Contact Info) Description 05/03/[address] [facility] [address] [facility] [address] [place] [address] Tyrese Girard MD [address] [facility] [address] [place] [address] Social History Tobacco Use Types [...] on filedocumented in this encounter Care Teams Link Trainer Teacher Relationship Specialty Start Date End Date Shirlene Vergara MD PCP - General Family Medicine 07/18/22 documented as of this encounter
--- OUTSIDE RECORDS SUMMARY | 2024-08-06 20:32 | XMS_ITS | Clinical Summary ---
Author Organization [facility] Address [address] [place] [address] Care Team Providers Care Logistics Project Manager Name Role Phone Shirlene Vergara MD Primary Care Provider [phone] Allergies Active Allergy Reactions Criticality Noted Date Comments Antihistamine 12 Hour Other Low 05/21/2023 restlessness Diphenhydramine Unknown,Other Low 10/14/2023 restlessness Ezetimibe Other Low 10/14/2023 unknown Gemfibrozil Other Low 10/14/2023 unknown Histamine Other 02/03/2013 it wires me Histamine H2 Inhibitors Other Low 11/21/2021 restlessness Levofloxacin 06/30/2022 Nsaids (Non-Steroidal Anti-Inflammatory Drug) Other High 10/14/2023 [facility] Penicillins Rash High 08/23/2023 Promethazine Other 02/03/2013 Made her shake very badly Propoxyphene Unknown 06/07/2024 Propoxyphene N-Acetaminophen Other Low 024 JITTERY NOT ALLERGIC TO TYLENOL Medications budesonide EC (Entocort EC) 3 mg [address] - ER 3 mg capsule,delayed ,extended release Active simvastatin (Zocor) 40 mg tablet simvastatin 40 mg tablet Active pantoprazole (ProtoNix) 40 mg EC tablet Take 40 mg by mouth in the morning. 11/05/19 22 Active miscellaneous medical supply (Blood Pressure Cuff) miscIndications: Benign hypertensive heart disease with heart failure (CMS/HCC) 1 kit in the morning and at bedtime. 1 each 08/18/19 23 Active Additional Information Patient not taking.Reported on 03/02/2024 cholecalciferol, vitamin D3, 50 mcg (2,000 unit) capsule Take 1 tablet by mouth in the morning. Active clopidogrel (Plavix) 75 mg tabletIndication s:Coronary artery disease, unspecified vessel or lesion type, unspecified whether angina present, unspecified whether rincon or transplanted heart TAKE 1 TABLET BY MOUTH ONCE DAILY DIRECTED 90 tablet 3 09/02/19 24 Active spironolactone (Aldactone) 50 mg tablet Take 50 mg by mouth in the morning. Active nebivolol (Bystolic) 10 mg tabletIndication s:Benign hypertensive heart disease with heart failure (CMS/HCC) Take 1 tablet (10 mg) by mouth once daily as directed. 90 tablet 3 12/02/19 24 025 Active ascorbic acid (Vitamin C) 250 MG chewable tablet Chew 250 mg. Active aspirin 81 mg EC tablet Take 81 mg by mouth in the morning. Active methenamine hippurate (Hiprex) 1 gram tablet Take 1 tablet by mouth Twice daily at 6am and 6pm. 07/07/19 Active nebivolol (Bystolic) 5 mg tabletIndication s:Essential hypertension Take 1 tablet (5 mg) by mouth in the morning. 30 tablet 11 11/09/19 24 025 Discontin ued(Med List Cleanup) rivaroxaban (Xarelto) 2.5 mg tablet Take by mouth. 025 Discontin ued(Med List Cleanup) gabapentin (Neurontin) 100 mg capsule Take 100 mg by mouth three times daily. 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 difficile colitis 11/09/2023 [...] (06/30/2022): Added automatically from request for surgery [id number] Closed fracture of neck of femur 06/07/2017 Encounters Date Type Department Care Team Description 07/31/2024 Telephone [facility] [address] [place] [address] Roma Blackwell MA 07/26/2024 2:20 PM EDT Office Visit [facility] [address] [place] [address] Zeenat Arriola CNP Tachycardia (Primary Dx); PAD (peripheral artery disease); Coronary artery disease involving rincon coronary artery of rincon heart without angina pectoris; Essential hypertension; Hx of CABG from Last 3 Months Family History Medical History Relation Name Comments [...] Mass Index 18.51 07/26/2024 2:32 PM EDT Plan of Treatment Health Maintenance Due Date Last Done Comments Medicare Annual Wellness (AWV) 1936 Depression Screening 1948 Adult Tetanus 1958 Zoster Vaccines (1 of 2) 1986 Fall Risk Screening 2001 Pneumococcal Vaccine: 50+ Years (2 of 2 - PCV) 11/08/2018 [...] on patient's age to complete this topic Insurance MEDICARE Member Subscriber Plan / Payer (Ef fective 2001-Present) Name:Delicia Sanderson Member ID:[id number] Relation to Subscriber:Self Name:Delicia Sanderson Subscriber ID:[id number] Payer ID:[id number] Group ID:Not on file Type:Medicare Address: [address] Care Teams Logistics Project Manager Relationship Specialty Start Date End Date Shirlene Vergara MD [address] [facility] PCP - General 12/05/21
--- OUTSIDE RECORDS SUMMARY | 2024-08-06 20:32 | XMS_ITS | Encounter Summary ---
Author Organization [email or web address] Address [id number] [address] [place] [address] Care Team Providers Care Core Setter Name Role Phone Shirlene Vergara MD Primary Care Provider [phone] Encounter Details Date Type Department Care Team (Late st Contact Info) Description 10/25/2023 Telephone [facility] [address] [place] [address] Deuce Kirkland MD [address], [address] [address] Social History Tobacco Use Types Packs/Day Years [...] Please advise, Joanna can be reached at [phone] documented in this encounter Plan of Treatment Upcoming Encounters Date Type Department Care Team (Late st Contact Info) Description 08/10/2024 10:10 AM EDT Office Visit [facility] [place] [address] [place] [address] Deuce Kirkland MD [address], [address] [address] 01/25/2025 11:00 AM EST Office Visit [facility] [place] [address] [place] [address] Deuce Kirkland MD [address], [address] [address] documented as of this encounter Visit Diagnoses Not on filedocumented in this encounter Care Teams Core Setter Relationship Specialty Start Date End Date Shirlene Vergara MD [address] [place] [address] PCP - General Family Medicine 04/10/22 documented as of this encounter
--- OUTSIDE RECORDS SUMMARY | 2024-08-06 20:32 | XMS_ITS | Clinical Summary ---
Author Organization [facility] Address [id number] [address] [place] [address] Care Team Providers Care Veneer Sheet Repairer Name Role Phone Shirlene Vergara MD Primary Care Provider [phone] Allergies Active Allergy Reactions Criticality Noted Date [...] cc per gauze. 500 mL 12 Active methenamine (MANDELAMINE) 1 GM tablet Take 1 tablet (1 g total) by mouth in the morning and 1 tablet (1 g total) before bedtime. Active cilostazoL (PLETAL) 100 mg tablet Take 1 tablet (100 mg total) by mouth in the morning and 1 tablet (100 mg total) before bedtime. 180 tablet 4 Active Active Problems Problem Noted Date Diagnosed [...] ri ght lower extremity with gangrene 10/14/2023 Assessment & [...] and Unna boot. 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 The venous ulcer healed nicely. Recently the bypass was then weaned down. It was a high-risk bypass because of poor outflow. She does not have rest pain she has claudication. She has a ejection fraction of 65%. Discussed with her adding cilostazol and conservative management given that she is high-risk. She is on aspirin and Plavix. Closed fracture of neck of femur 06/07/2017 Overview (11/18/2023): Due to a fall Encounters Date Type Department Care Team Description 08/02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); Critical limb ischemia of left lower extremity with rest pain (CMS-HCC) Discharge Disposition: Home 07/20/2024 2:41 PM EDT - 07/20/2024 11:59 PM EDT Hospital Encounter [facility] [address] [place] [address] Deuce Kirkland MD 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); Critical limb ischemia of left lower extremity with rest pain (CMS-HCC) Discharge Disposition: Home 07/20/2024 Travel 07/13/2024 Travel from Last 3 Months Immunizations Immunization Administration Dates Next Due Covid-19, [...] = 0.6 oz pur e alcohol) monthly [employer] Answer Date Recorded In the past 12 months has [employer], gas, oil, or water [employer] threatened to shut off services in your [...] Pressure 131/67 07/27/2024 10:42 AM EDT Pulse 72 02/24/2024 11:12 AM EST Temperature 36.5 C (97.7 F) 02/24/2024 11:12 AM EST Respiratory Rate 18 02/24/2024 11:12 AM EST Oxygen Saturation 98% 01/20/2024 10:39 AM EST Inhaled Oxygen Concentration - - Weight 68 kg (150 lb) 02/24/2024 11:12 AM EST Height 175.3 cm (5' 9 ) 07/27/2024 10:42 AM EDT Body Mass Index 21.72 02/24/2024 11:12 AM EST Plan of Treatment Upcoming Encounters Date Type Department Care Team (Late st Contact Info) Description 08/10/2024 10:10 AM EDT [facility] Visit [facility] [place] [address] [place] [address] Deuce Kirkland MD [address], [address] [address] 01/25/2025 11:00 AM EST Office Visit [facility] [place] [address] [place] [address] Deuce Kirkland MD [address], [address] [address] Health Maintenance Due Date Last Done Comments DTaP,Tdap and Td Vaccines (1 - Tdap) 09/29/1954 Zoster (Shingles) Vaccine (1 of 2) 1986 Fall Risk Screening 2001 COVID-19 Vaccine ( - 2023-2 5 season) 2024 11/23/2023, 10/26/2022, 01/15/2022, Additional [...] towards goal: Medical Devices Implanted Type Area Drapery Operator Device Identifier Shelf Expiration Date Model / Serial / Lot Graft Vsc 80cm 8mm [place] Thnwl Propaten Hep Ptfe Rem Rng - [id number] - [id number] Implanted:Qty: 1 on 01/01/2024 by Deuce Kirkland MD at [facility] Graft Right: Arterial [place] 09/29/2026 [id number] / [id number] / Description:RIGHT FEMORAL - POPLITEAL ARTERY Incv/Patch Cv 8x.8cm N-Pyrg Tpr End Photofix Decellularized Bvn Rpl [id number] Use [id number] - [id number] Implanted:Qty: 1 on 01/01/2024 by Deuce Kirkland MD at [facility] Graft Right: Arterial [employer] 06/11/2025 [id number] / / [id number] Description:RIGHT FEMORAL AR FINESSE Stent 7fr 135cm Vbx Ba Ppm Expandable Cath Hep Vbhn Eprsth 8 [facility] [id number] - [id number] - [id number] Implanted:Qty: 1 on 01/01/2024 by Deuce Kirkland MD at [facility] Stent Right: Arterial [place] 07/27/2026 [id number] / [id number] / Description:RIGHT ILIAC SANDRITA RY Procedures Procedure Name Priority Date/Time Associated Diagnosis Comments VASC ARTERIAL DUPLEX LOWER GRAFT SCAN BILATERAL Routine 07/20/2024 4:14 PM EDT 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) Critical limb ischemia of left lower extremity with rest pain (CMS-HCC) VASC ARTERIAL DOPPLER LOWER BILATERAL MULTI LEVEL/PVR Routine 07/20/2024 4:14 PM EDT 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 Previous lower extremity bypass graft duplex exam performed: 02/18/2024. Bypass graft noted with monophasic spectral Doppler waveforms. Right: Entirety of bypass graft has no color flow or spectral Doppler signals. Perigraft fluid noted throughout the bypass graft. Non-visualization of the distal anastomosis due to fluid around the medial knee level. Mid posterior tibial vessel segments without color flow or spectral Doppler signals. Low velocity, monophasic flow noted in the peroneal and anterior tibial arteries. Left: Plaque and spectral waveforms with hyperemic flow noted in the iliac and common femoral, and deep femoral artery without significant color flow disturbance. Mid superficial femoral vessel segments without color flow or spectral Doppler signals. Plaque with monophasic distal superficial femoral, popliteal, peroneal, posterior tibial, and anterior tibial artery spectral waveforms. General: Incidental finding of right mixed echogenic encapsulated area without color flow in the medial knee area measuring 3.3 x 4.3 cm. Conclusions: RIGHT:Lower extremity bypass graft occlusion.Inflow arteries are patent eith mild arterial disease.Outflow arteries have monophasic waveform.LEFT:Superficial femoral artery occlusion.Monophasic waveform in run off arteries. Procedure Note Ananth Perez MD - 07/20/2024 Previous: History of right lower extremity MUSCULOSKELETAL PHYSICIAN endarterectomy andstenting, and femoropopliteal PTFE bypass graft on 01/01/2024. Previouslower extremity bypass graft duplex exam performed: 02/18/2024. Bypassgraft noted with monophasic spectral Doppler waveforms. Right: Entirety of bypass graft has no color flow or spectral Dopplersignals. Perigraft fluid noted throughout the bypass graft.Non-visualization of the distal anastomosis due to fluid around the medialknee level. Mid posterior tibial vessel segments without color flow or spectral Doppler signals. Low velocity, monophasicflow noted in the peroneal and anterior tibial arteries. Left: Plaque and spectral waveforms with hyperemic flow noted in the iliacand common femoral, and deep femoral artery without significant color flowdisturbance. Mid superficial femoral vessel segments without color flow orspectral Doppler signals. Plaque with monophasic distal superficial femoral, popliteal, peroneal,posterior tibial, and anterior tibial artery spectral waveforms. General: Incidental finding of right mixed echogenic encapsulated areawithout color flow in the medial knee area measuring 3.3 x 4.3 cm. Conclusions: RIGHT:Lower extremity bypass graft occlusion.Inflow arteriesare patent eith mild arterial disease.Outflow arteries have monophasicwaveform.LEFT:Superficial femoral artery occlusion.Monophasic waveform inrun off arteries. us Deuce Kirkland MD CV VASCULAR ORDERABLES Final Result * Vas art doppler lwr bilat mult lev/PVR (07/20/2024 4:14 PM EDT) Anatomical Region Laterality Modality Vascular Bilateral Ultrasound 07/20/2024 4:27 PM EDT Narrative 07/20/2024 4:59 PM EDT Previous: Previous lower extremity arterial physiological exam performed: 02/18/2024; Highest TBI: Right: 0.49; Left: 0.31. Evidence of vessel incompressibility. History of right lower extremity MUSCULOSKELETAL PHYSICIAN endarterectomy and stenting, and femoropopliteal PTFE bypass graft on 01/01/2024. Right: Mildly abnormal thigh, and severely abnormal calf, and flatline ankle level PVR waveform contour. No calf waveform augmentation noted. PT and DP MITCH are unobtainable due to absent CW Doppler waveforms. TBI unobtainable due to flatline PPG. Hyperemic common femoral, and Monophasic popliteal CW Doppler waveforms. Absent PT and DP CW Doppler waveforms. Left: Mildly abnormal thigh, moderately abnormal calf and ankle level PVR waveform contour. No calf waveform augmentation noted. Audible PT and DP arterial Doppler signals despite occlusive cuff pressures exceeding >250mmHg. TBI is 0.28. Hyperemic common femoral, Monophasic popliteal, PT and DP CW Doppler waveforms. Conclusions: RIGHT: Multilevel arterial disease (common femoral artery or above with femoropopliteal and/or tibioperoneal); MITCH consistent with severe arterial disease.Flatline waveform at ankle level.LEFT:Multilevel arterial disease (common femoral artery or above with femoropopliteal and/or tibioperoneal); MITCH consistent with moderate arterial disease.TBI is in the range of mild to moderate arterial disease. Procedure Note Ananth Perez MD - 07/20/2024 Previous: Previous lower extremity arterial physiological exam performed:02/18/2024; Highest TBI: Right: 0.49; Left: 0.31. Evidence of vesselincompressibility. History of right lower extremity MUSCULOSKELETAL PHYSICIAN endarterectomy andstenting, and femoropopliteal PTFE bypass graft on 01/01/2024. Right: Mildly abnormal thigh, and severely abnormal calf, and flatlineankle level PVR waveform contour. No calf waveform augmentation noted. PTand DP MITCH are unobtainable due to absent CW Doppler waveforms. TBIunobtainable due to flatline PPG. Hyperemic common femoral, and Monophasic popliteal CW Doppler waveforms.Absent PT and DP CW Doppler waveforms. Left: Mildly abnormal thigh, moderately abnormal calf and ankle level PVRwaveform contour. No calf waveform augmentation noted. Audible PT and DParterial Doppler signals despite occlusive cuff pressures exceeding>250mmHg. TBI is 0.28. Hyperemic common femoral, Monophasic popliteal, PT and DP CW Doppler waveforms. Conclusions: RIGHT: Multilevel arterial disease (common femoral artery orabove with femoropopliteal and/or tibioperoneal); MITCH consistent withsevere arterial disease.Flatline waveform at ankle level.LEFT:Multilevelarterial disease (common femoral artery or above with femoropopliteal and/or tibioperoneal); MITCH consistentwith moderate arterial disease.TBI is in the range of mild to moderatearterial disease. us Deuce Kirkland MD CV VASCULAR ORDERABLES Final Result from Last 3 Months Insurance MEDICARE [facility] Advance Directives Documents on File Type Date Recorded Patient Muck Farmer Expl anation Living Will 11/05/2023 11:42 AM * Full Code (Latest Code Status on File) Date Activated Date Inactivated Comments 11/19/2023 7:37 AM 11/19/2023 2:11 PM Healthcare Agents on File Name Relationship Healthcare Agent Relationship Communication Joanna Steinberg Daughter First Charlie chahal Health Care Agent Care Teams Veneer Sheet Repairer Relationship Specialty Start Date End Date Shirlene Vergara MD [address] [place], [place] [id number] PCP - General Family Medicine 04/10/22
--- OUTSIDE RECORDS SUMMARY | 2024-08-06 20:32 | XMS_ITS | Encounter Summary ---
Author Organization [facility] Address [address] [place] [address] Care Team Providers Care Director Post Name Role Phone Shirlene Vergara MD Primary Care Provider [phone] Encounter Details Date Type Department Care Team (Latest Contact Info) Description 04/29/2024 Abstract [facility] Tyrese Girard MD [address] [address] Social History Tobacco Use Types Packs/Day Years [...] on filedocumented in this encounter Care Teams Director Post Relationship Specialty Start Date End Date Shirlene Vergara MD PCP - General Family Medicine 07/18/22 documented as of this encounter
--- OUTSIDE RECORDS SUMMARY | 2024-08-06 20:32 | XMS_ITS | Clinical Summary ---
Author Organization [facility] Address [address] [place], [place] [id number] Care Team Providers Care Regulatory Intern Name Role Phone Shirlene Vergara MD Primary Care Provider [phone] Allergies Active Allergy Reactions Criticality Noted Date Comments Histamine Other: See Comments 02/03/2013 it wires me Promethazine Hcl Other: See Comments 02/03/2013 Made her shake very badly Medications Moexipril-Mena chlorothiazide (UNIRETIC) 7.5-12.5 mg per tablet Take 1 tablet by mouth once daily. Active metoprolol succinate XL, long acting, 50 mg 24 hr tablet Take 50 mg by mouth once daily. Active BABY ASPIRIN ORAL Take 81 mg by mouth once daily. Active CALCIUM CITRATE (CITRACAL ORAL) Take by mouth once daily. Active simvastatin 40 mg tablet Take 40 mg by mouth twice daily. Active zolpidem (AMBIEN) 10 mg tab Take by mouth at bedtime as needed. Active omeprazole 20 mg capsule Take 2 capsules by mouth twice daily. 02/03/2013 Active Omeprazole (PRILOSEC) 40 mg capsule Take 1 capsule by mouth once daily. 90 capsule 3 03/05/2014 Active hyoscyamine sublingual (LEVSIN SL) 0.125 mg subl Dissolve 1 tablet under the tongue four times daily as needed. 100 tablet 2 11/16/2014 Active sucralfate (CARAFATE) 1 gram tablet Take 1 tablet by mouth three times daily. 90 tablet 1 09/17/2015 Active Family History Medical History Relation Comments lung cancer [Other] Brother 1 cancer on roof of mouth [Other] Brother 2 pulmonary heart disease [Other] Father Stroke Mother Cancer Sister 1 heart problems [Other] Sister 2 Relation Status Comments Brother 1 Brother 2 Father Mother Sister 1 Sister 2 Social History Tobacco Use Types Packs/Day Years Used Date Smoking Tobacco: Former Smokeless Tobacco: Never Alcohol Use Standard Drinks/Week Comments Not Asked 0 (1 standard drink = 0.6 oz pur e alcohol) Comments No Sex and Gender Information Value Date Recorded Sex Assigned at Not on file Legal Sex Female 9:38 AM EST Gender Identity Not on file Sexual Orientation Not on file Last Filed Vital Signs Vital Sign Reading Time Taken Comments Blood Pressure 150/70 11/16/2014 4:23 PM EDT Pulse 66 04/13/2013 1:02 PM EST Temperature - - Respiratory Rate - - Oxygen Saturation - - Inhaled Oxygen Concentration - - Weight 74.4 kg (164 lb) 11/16/2014 4:23 PM EDT Height - - Body Mass Index - - Plan of Treatment Health Maintenance Due Date Last Done Comments Anxiety Screening 1953 Depression Screening 1953 DTaP,Tdap,Td Vaccine (1 - Tdap) 09/29/1954 Pneumococcal Vaccine: 50+ (1 of 1 - PCV) 1986 Shingrix Vaccine (1 of 2) 1986 Bone Density Screening 2001 RSV Vaccine (1 - 1-dose 75+ series) 09/29/2011 Diabetes Screening 11/16/2017 11/16/2014 Covid-19 Vaccine ( - 2023- season) 2023 Advance Directive Discussion 02/09/2024 Influenza Vaccine (Season Ended) 2024 Procedures Procedure Name Priority Date/Time Associated Diagnosis Comments COMPREHENSIVE METABOLIC PANEL Routine 11/16/2014 5:01 PM EDT Epigastric pain from Last 3 Months or Most Recently Relevant to Health Maintenance Results * (ABNORMAL) COMP METABOLIC PANEL (11/16/2014 5:01 PM EDT) Protein, Total 6.8 6.0 - 8.4 g/dL 11/16/2014 10:41 PM EDT [facility] Albumin 4.1 3.5 - 5.0 g/dL 11/16/2014 10:41 PM EDT [facility] Calcium 9.3 8.5 - 10.5 mg/dL 11/16/2014 10:41 PM [facility] Bilirubin, Total 0.5 0.0 - 1.5 mg/dL 11/16/2014 10:41 PM [facility] Alkaline Phosphatase 27(L) 40 - 150 U/L 11/16/2014 10:41 PM [facility] AST 21 7 - 40 U/L 11/16/2014 10:41 PM [facility] Glucose 62(L) 65 - 100 mg/dL 11/16/2014 10:41 PM [facility] BUN 19 8 - 25 mg/dL 11/16/2014 10:41 PM [facility] Creatinine 1.04 0.70 - 1.40 mg/dL 11/16/2014 10:41 PM [facility] Sodium 143 132 - 148 mmol/L 11/16/2014 10:41 PM [facility] Potassium 3.5 3.5 - 5.0 mmol/L 11/16/2014 10:41 PM [facility] Chloride 100 98 - 110 mmol/L 11/16/2014 10:41 PM [facility] CO2 29 23 - 32 mmol/L 11/16/2014 10:41 PM [facility] Anion Gap 14 0 - 15 mmol/L 11/16/2014 10:41 PM [facility] ALT 13 0 - 45 U/L 11/16/2014 10:41 PM [facility] eGFR- >60 11/16/2014 10:41 PM [facility] eGFR-All Other Races 51 . 11/16/2014 10:41 PM [facility] Comment: eGFR (Estimated GFR) Units of measure: mL/min/1.73 meters squared eGFR is derived from the reexpressed MDRD Study equation using the following parameters: serum creatinine, age, gender and race. The creatinine assay has been calibrated to be traceable to IDMS. An eGFR <60 mL/min/1.73m2 for >3 months is consistent with chronic kidney disease. Refer to KDOQI guidelines for clinical interpretation. In patients with unstable renal function, e.g. those with acute kidney injury, the eGFR may not accurately reflect actual GFR. Blood specimen (specimen) BLOOD SPECIMEN / Unknown 11/16/2014 5:01 PM EDT 11/16/2014 5:03 PM EDT us Jeanette Corbin MD, PhD LABORATORY Final Result [facility] [address] [place] [address] from Last 3 Months or Most Recently Relevant to Health Maintenance Insurance MEDICARE [place] [employer] P[employer] OOS Care Teams Regulatory Intern Relationship Specialty Start Date End Date Shirlene Vergara MD [address] [place] [address] PCP - General Family Medicine 07/29/11
--- OUTSIDE RECORDS SUMMARY | 2024-08-06 20:32 | XMS_ITS | Referral Summary ---
Author Organization [facility] Address [address] [place] [address] Care Team Providers Care Head Of Precision Targeting Name Role Phone Shirlene Vergara MD Primary Care Provider [phone] Encounters Date Type Department Care Team Description 07/31/2024 Telephone [facility] [address] [place] [address] Roma Blackwell MA 07/26/2024 2:20 PM EDT Office Visit [facility] [address] [place] [address] Zeenat Arriola CNP Tachycardia (Primary Dx); PAD (peripheral artery disease); Coronary artery disease involving [place] coronary artery of [place] heart without angina pectoris; Essential hypertension; Hx of CABG from Last 3 Months Allergies Active Allergy Reactions Criticality Noted Date [...] type, unspecified whether angina present, unspecified whether [place] or transplanted heart TAKE 1 TABLET BY [...] Twice daily at 6am and 6pm. 07/07/19 25 Active nebivolol (Bystolic) 5 mg tabletIndication s:Essential [...] (06/30/2022): Added automatically from request for surgery [id number] Closed fracture of neck of femur 06/07/2017 [...] 07/26/2024 2:32 PM EDT Plan of Treatment Not on file Insurance MEDICARE [facility] Care Teams Head Of Precision Targeting Relationship Specialty Start Date End Date Shirlene Vergara MD [address] [facility] PCP - General 12/05/21
--- OUTSIDE RECORDS SUMMARY | 2024-08-06 20:32 | XMS_ITS | Clinical Summary ---
Author Organization [facility] Address [address] [place] [address] Care Team Providers Care Stereoptician Name Role Phone Shirlene Vergara MD Primary Care Provider [phone] Allergies Active Allergy Reactions Criticality Noted Date [...] GRAM VAGINALLY TWICE A WEEK DIRECTED 06/15/19 23 Active melatonin 10 MG tablet Take 1 tablet by mouth at bedtime. Active metoprolol succinate XL (Toprol-XL) 50 MG 24 hr tablet Take 50 mg by mouth in the morning. 09/25/19 22 Active pantoprazole (ProtoNix) 40 MG EC tablet [...] post small bowel resection 05/17/2024 Ischemic enteritis (HHS-HCC) 05/17/2024 Hip bursitis, left 11/02/2022 Primary osteoarthritis [...] Description 05/17/2024 11:15 AM EDT Office Visit [facility] [address] [facility] [address] [place] [address] Tyrese Girard MD Status post small bowel resection (Primary Dx); Ischemic enteritis (HHS-HCC) 05/17/2024 Travel from Last 3 Months Immunizations Immunization [...] Completed 11/23/2023, , 01/15/2022, Additional history exists Insurance MEDICARE [facility] Care Teams Stereoptician Relationship Specialty Start Date End Date Shirlene Vergara MD PCP - General Family Medicine 07/18/22
--- OUTSIDE RECORDS SUMMARY | 2024-08-06 20:32 | XMS_ITS | Encounter Summary ---
Author Organization [facility] Address [address] [place] [address] Care Team Providers Care Billet Recorder Name Role Phone Shirlene Vergara MD Primary Care Provider [phone] Encounter Details Date Type Department Care Team (Latest Contact Info) Description 04/28/2024 Abstract [facility] Tyrese Girard MD [address] [address] Social History Tobacco Use Types Packs/Day Years [...] on filedocumented in this encounter Care Teams Billet Recorder Relationship Specialty Start Date End Date Shirlene Vergara MD PCP - General Family Medicine 07/18/22 documented as of this encounter
--- OUTSIDE RECORDS SUMMARY | 2024-08-06 20:32 | XMS_ITS | Encounter Summary ---
Author Organization [employer] s tem Address [facility]-[id number] [address] [place] [address] Care Team Providers Care Associate Director Of Development Name Role Phone Shirlene Vergara MD Primary Care Provider [phone] Encounter Details Date Type Department Care Team (Latest Contact Info) Description 07/26/2024 Travel Social History Tobacco Use Types Packs/Day Years Used Date Smoking Tobacco: Former Cigarettes Q uit: 12/30/1993 Smokeless Tobacco: Never Comments:QUIT IN 1989 Alcohol Use Standard Drinks/Week Comments Yes 1 (1 standard drink = 0.6 oz pur e alcohol) monthly [facility] Utilities Answer Date Recorded In the past 12 months has [employer], gas, oil, or water company threatened [...] 08/10/2024 10:10 AM EDT Office Visit [facility] [place] [address] [place] [address] Deuce Kirkland MD [address] [address] 01/25/2025 11:00 AM EST Office Visit [facility] [place] [address] [place] [address] Deuce Kirkland MD [address] [place] [address] documented as of this encounter Goals Goal Patient Goal Type Associated Problems Recent Progress Patient-Stated? Author Daughter stated: Discharge to SNF and then back to independent living with resumption of home care,. General Yes Kelly Badillo, RN Note: Evaluation of progress towards goal: documented as of this encounter Visit Diagnoses Not on filedocumented in this encounter Additional Health Concerns Assessment Noted Time PHQ-9 Depression Total Score: 0 11/18/19 24 9:33 PM EDT documented as of this encounter Care Teams Associate Director Of Development Relationship Specialty Start Date End Date Shirlene Vergara MD [address] [place] [address] PCP - General Family Medicine 04/10/22 documented as of this encounter
--- OUTSIDE RECORDS SUMMARY | 2024-08-06 20:33 | XMS_ITS | Encounter Summary ---
Author [facility] Address [facility]-[id number] [address] [place] [address] Care Team Providers Care Spray Gun Repairer Name Role Phone Shirlene Vergara MD Primary Care Provider [phone] Encounter Details Date Type Department Care Team (Late st Contact Info) Description 10/18/2023 Telephone [facility] [address] [place] [address] Deuce Kirkland MD [address], [address] [address] Social History Tobacco Use Types Packs/Day Years [...] Thank you- Joanna can be reached at [phone] if we need to make any adjustments. * Telephone Encounter - Citlali Garcia CMA - 10/18/2023 9:01 AM EDT Thank you , I called daughter back documented in this encounter Plan of Treatment Upcoming Encounters Date Type Department Care Team (Late st Contact Info) Description 08/10/2024 10:10 AM EDT [facility] [place] [address] [place] [address] Deuce Kirkland MD [address] [address] 01/25/2025 11:00 AM EST Office Visit [facility] [place] [address] [place] [address] Deuce Kirkland MD [address] [place] [address] documented as of this encounter Visit Diagnoses Not on filedocumented in this encounter Care Teams Spray Gun Repairer Relationship Specialty Start Date End Date Shirlene Vergara MD [address] [place] [address] PCP - General Family Medicine 04/10/22 documented as of this encounter
--- OUTSIDE RECORDS SUMMARY | 2024-08-06 20:33 | XMS_ITS | Encounter Summary ---
Author Organization [facility] Address [id number] [address] [place] [address] Care Team Providers Care Wellness Rn Name Role Phone Shirlene Vergara MD Primary Care Provider [phone] Encounter Details Date Type Department Care Team (Late st Contact Info) Description 11/25/2023 Orders Only [facility] [address] [place] [address] Deuce Kirkland MD [address], [facility] [address] [place] [address] Social History Tobacco Use Types Packs/Day Years Used Date Smoking Tobacco: Former Cigarettes Smokeless Tobacco: Never Comments:QUIT IN 1989 Alcohol Use Standard Drinks/Week Comments Yes 1 (1 standard drink = 0.6 oz pur e alcohol) [facility] Utilities Answer Date Recorded In the past 12 months has [employer], gas, oil, or water company threatened [...] AM EDT Office Visit [facility] [place] [address] [place] [address] Deuce Kirkland MD [address] [place] [address] 01/25/2025 11:00 AM EST Office Visit [facility] [place] [address] [place] [address] Deuce Kirkland MD [address] [place] [address] documented as of this encounter Procedures Procedure [...] documented as of this encounter Care Teams Wellness Rn Relationship Specialty Start Date End Date Shirlene Vergara MD [address] [place] [address] PCP - General Family Medicine 04/10/22 documented as of this encounter
--- OUTSIDE RECORDS SUMMARY | 2024-08-06 20:33 | XMS_ITS | Encounter Summary ---
Author Organization [facility] tem Address [facility]-[id number] [address] [place] [address] Care Team Providers Care Real Estate Investor Name Role Phone Shirlene Vergara MD Primary Care Provider [phone] Encounter Details Date Type Department Care Team (Late st Contact Info) Description 01/02/2024 Orders Only [facility] - GEN 2 ICU [address] [place] [address] Shanique Conway, RN Social History Tobacco Use Types Packs/Day Years Used Date Smoking Tobacco: Former Cigarettes Q uit: 12/30/1993 Smokeless Tobacco: Never Comments:QUIT IN 1989 Alcohol Use Standard Drinks/Week Comments Yes 1 (1 standard drink = 0.6 oz pur e alcohol) monthly [facility] Utilities Answer Date Recorded In the past 12 months has [employer], gas, oil, or water [employer] threatened to shut off services in [...] documented as of this encounter Functional Status documented as of this encounter Mental Status * Question Answer Entry Date Author Overall Cognitive Status X 01/04/2024 8:35 AM EST Lila Nguyen OTR/Nirav documented in this encounter Plan of Treatment Upcoming Encounters Date Type Department Care Team (Late st Contact Info) Description 08/10/2024 10:10 AM EDT Office Visit [facility] [place] [address] [place] [address] Deuce Kirkland MD [address], [address] [address] 01/25/2025 11:00 AM EST Office [facility] [place] [address] [place] [address] Deuce Kirkland MD [address], [address] [address] documented as of this encounter Goals Goal [...] documented as of this encounter Care Teams Real Estate Investor Relationship Specialty Start Date End Date Shirlene Vergara MD [address] [place] [address] PCP - General Family Medicine 04/10/22 documented as of this encounter
--- OUTSIDE RECORDS SUMMARY | 2024-08-06 20:33 | XMS_ITS | Encounter Summary ---
Author Organization [facility] Address [id number] [address] [place] [address] Care Team Providers Care Sanitation Lead Name Role Phone Shirlene Vergara MD Primary Care Provider [phone] Encounter Details Date Type Department Care Team (Late st Contact Info) Description 10/19/2023 Orders Only [facility] [address] [place] [address] Deuce Kirkland MD [address], [facility] [address] [place] [address] Social History Tobacco Use Types Packs/Day Years [...] AM EDT Office Visit [facility] [place] [address] [place] [address] Deuce Kirkland MD [address], [facility] [address] [place] [address] 01/25/2025 11:00 AM EST Office Visit [facility] [place] [address] [place] [address] Deuce Kirkland MD [address], [facility] [address] [place] [address] documented as of this encounter Procedures Procedure [...] on filedocumented in this encounter Care Teams Sanitation Lead Relationship Specialty Start Date End Date Shirlene Vergara MD [address] [place] [address] PCP - General Family Medicine 04/10/22 documented as of this encounter
--- OUTSIDE RECORDS SUMMARY | 2024-08-06 20:33 | XMS_ITS | Encounter Summary ---
Author Organization [facility] Sys tem Address [facility]-[id number] [address] [place] [address] Care Team Providers Care Duplex Trimmer Name Role Phone Shirlene Vergara MD Primary Care Provider [phone] Encounter Details Date Type Department Care Team (Late st Contact Info) Description 10/04/2023 Telephone [facility] [address] [place] [address] Patience Danielle CMA Social History Tobacco Use [...] media. Daughter name and number is Joanna [phone] documented in this encounter Plan of Treatment Upcoming Encounters Date Type Department Care Team (Late st Contact Info) Description 08/10/2024 10:10 AM EDT Office Visit [facility] [place] [address] [place] [address] Deuce Kirkland MD [address], [address] [address] 01/25/2025 11:00 AM EST Office Visit [facility] [place] [address] [place] [address] Deuce Kirkland MD [address], [address] [address] documented as of this encounter Visit Diagnoses Not on filedocumented in this encounter Care Teams Duplex Trimmer Relationship Specialty Start Date End Date Shirlene Vergara MD [address] [place] [address] PCP - General Family Medicine 04/10/22 documented as of this encounter
--- OUTSIDE RECORDS SUMMARY | 2024-08-06 20:33 | XMS_ITS | Encounter Summary ---
Author Organization [facility] Address [address] [place] [address] Care Team Providers Care Stock Unloader Name Role Phone Shirlene Vergara MD Primary Care Provider [phone] Encounter Details Date Type Department Care Team (Late st Contact Info) Description 07/31/[address] [facility] [address] [place] [address] Roma Blackwell MA Social History Tobacco Use Types Packs/Day Years [...] on filedocumented in this encounter Care Teams Stock Unloader Relationship Specialty Start Date End Date Shirlene Vergara MD [address] [facility] PCP - General 12/05/21 documented as of this encounter
--- OUTSIDE RECORDS SUMMARY | 2024-08-06 20:33 | XMS_ITS | Encounter Summary ---
Author Organization [email or web address] Address [facility]-[id number] [address] [place] [address] Care Team Providers Care Reprographics Associate Name Role Phone Shirlene Vergara MD Primary Care Provider [phone] Encounter Details Date Type Department Care Team (Late Contact Info) Description 12/29/2021 Orders Only [facility] [address] [place] [address] Marlen De La Rosa CMA Social History [...] Department Care Team (Late Contact Info) Description 08/10/2024 10:10 AM EDT Office Visit [facility] [place] [address] [place] [address] Deuce Kirkland MD [address], [facility] [address] [place] [address] 01/25/2025 11:00 AM EST Office Visit [facility] [place] [address] [place] [address] Deuce Kirkland MD [address], [address] [address] documented as of this encounter Visit Diagnoses Not on filedocumented in this encounter Care Teams Reprographics Associate Relationship Specialty Start Date End Date Shirlene Vergara MD [address] [place] [address] PCP - General Family Medicine 04/10/22 documented as of this encounter
--- OUTSIDE RECORDS SUMMARY | 2024-08-06 20:33 | XMS_ITS | Patient Health Record ---
Author Organization [facility] [place] Address [address] [place] [address] Care Team Providers Care Casing Finisher And Stuffer Name Role Phone Shirlene Vergara Primary Care Provider Twila Fountain Unavailable [phone] Allergies Allergen (clinical drug ingredient) Drug/Non Drug [...] Active Results Component Value Reference Range Notes US arterial duplex LE RT (No t yet reviewed by provider) Interpretation: Performing Lab: Notes/Report: Source Facility: [place] [address] [place] [address] Ultrasound Report Signed Patient: SAGE SANDERSON MR#: [id number] : 1935 Acct:[id number] Age/Sex: 87 / F ADM Date: 09/16/23 Loc: US Attending Dr: Agustin Avila D.P.M. Ordering Physician: Agustin Avila D.P.M. Date of Service: 09/16/23 Procedure(s): US arterial duplex LE BI Accession Number(s): [id number] cc: Shirlene Vergara M.D.; Agustin Avila D.P.M. The [address] [address] Patient Name: SAGE SANDERSON MRN: [id number] date: 1935 Sex: F Assigned Patient Location: US Current Patient Location: US Accession/Order Number: [id number] Exam Date: 09/16/2023 10:00 Report Date: 09/16/2023 [...] Signed By: 09/16/23 1234 DD/ 1232 TD/TT: Airframe And Powerplant Mechanic: [place] [address] Ultrasound Report Signed Patient: SAGE SANDERSON MR#: [id number] : 1935 Acct:[id number] Age/Sex: 87 / F ADM Date: 09/16/23 Loc: US Attending Dr: Agustin Avila D.P.M. Ordering Physician: Agustin Avila D.P.M. Date of Service: 09/16/23 Procedure(s): US art erial duplex LE BI Accession Number(s): [id number] cc: Shirlene Vergara; Agustin Avila D.P.M. [place] [address] Patient Name: SAGE SANDERSON MRN: [id number] date: 1935 Sex: F Assigned Patient Location: US Current Patient Location: US Accession/Order Numb er: [id number] Exam Date: 09/16/2023 10:00 Report Date: 09/16/2023 [...] Signed By: 09/16/23 1234 DD/ 1232 TD/TT: Airframe And Powerplant Mechanic: JUVENTINO ankle RT min 3V (Not yet reviewed by provider) Interpretation: Performing Lab: Notes/Report: Source Facility: [facility] [place] [address] [place] [address] XRay Report Signed Patient: SAGE SANDERSON MR#: [id number] : 1935 Acct:[id number] Age/Sex: 87 / F ADM Date: 09/10/23 Loc: WC Attending Dr: Agustin Avila D.P.M. Ordering Physician: Agustin Avila D.P.M. Date of Service: 09/10/23 Procedure(s): XR ankle RT min 3V Accession Number(s): [id number] cc: Shirlene Vergara M.D.; Agustin Avila D.P.M. [place] [address] Patient Name: SAGE SANDERSON MRN: [id number] date: 1935 Sex: F Assigned Patient Location: Current Patient Location: Accession/Order Number: [id number] Exam Date: 09/10/2023 12:20 Report Date: 09/11/2023 [...] M.D. Signed By: 09/11/2310 DD/ 6 TD/TT: Airframe And Powerplant Mechanic: [place] [address] XRay Report Signed Patient: SAGE SANDERSON MR#: [id number] : 1935 Acct:[id number] Age/Sex: 87 / F ADM Date: 09/10/23 Loc: Attending Dr: Agustin Avila D.P.M. Ordering Physician: Agustin Avila D.P.M. Date of Service: 09/10/23 Procedure(s): XR ankle RT min 3V Accession Number(s): [id number] cc: Shirlene Vergara; Agustin Avila D.P.M. [facility] [place] [id number] Patient Name: SAGE SANDERSON MRN: [id number] date: 1935 Sex: F Assigned Patient Location: Current Patient Location: Accession/Order Numb er: [id number] Exam Date: 09/10/2023 12:20 Report Date: 09/11/2023 [...] M.D. Signed By: 09/11/2310 DD/ 6 TD/TT: Airframe And Powerplant Mechanic: Reason For Referral No Information Social History Tobacco Use: Social History Observation Description Date Details (start date - stop date) Never Smoker NA - NA Tobacco Use/Smoking Question Answer Notes Patient is a nonsmoker Problems Problem Type SNOMED Code ICD Code Onset Dates Problem Status W/U Status Risk Notes Problem 244549166 Peripheral vascu lar disease, unspecified (I73.9) Active confirmed Problem 539204039 Elevated white blood cell count, unspecified (D72.829) Active confirmed Problem 67049671 Venous insufficiency (chronic) (peripheral) (I87.2) Active confirmed Problem 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) (000196381255777) 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 (I87.311) Active confirmed Problem Ingrowing nail (012060453) Ingrowing nail (L60.0) Active confirmed Problem Chronic ulcer of lower extremity (00302326) Non-pressure chronic ulcer of other part of right lower leg limited to breakdown of skin (L97.811) Active confirmed Problem 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 level (30686605434124846) Non-pressure chronic ulcer of other part of right lower leg with fat layer exposed (L97.812) Active confirmed Problem Gastroesophageal reflux disease (955624586) GERD (gastroesophageal reflux disease) (K21.9) Active confirmed Problem Coronary artery disease (56346499) CAD (coronary artery disease) (I25.10) Active confirmed Problem Hypertension (82436669) HTN (hypertension) (I10) Active confirmed Problem Peripheral vascular disease (051918769) Other peripheral vascular disease (I73.89) Active confirmed Problem Chronic venous 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 (I87.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) Active confirmed Problem Essential hypertension (04482022) BP (high blood pressure) (I10) Active confirmed Problem 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) Active confirmed Problem Non-pressure chronic ulcer of right lower leg, limited to breakdown of skin (L97.911) Active confirmed Problem Unstageable pressure injury of right heel (disorder) (16004149350425755) Pressure injury of right heel, unstageable (L89.610) Active confirmed Problem Patient immunocompromised (444650213) 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) Active confirmed Problem Chronic ulcer of right heel (disorder) (70904948223378152) Chronic ulcer of right heel limited to breakdown of skin (L97.411) Active confirmed Plan Of Treatment Pending Test Test Name Order Date XR ankle RT min 3V 09/11/2023 US arterial duplex LE RT 09/16/2023 Insurance Providers Payer Name Payer Address Payer Phone Subscriber Number Group Number Insured Name Patient Relationship to Insured Coverage Start Date Coverage End Date [place] [address] [place] [address] [phone] [id number] Sage Sanderson Self - patient is the insured 2 [employer] [place] P[place] [address] [place] [address] [id number] Sage Sanderson Self - patient is the insured 0
--- OUTSIDE RECORDS SUMMARY | 2024-08-06 20:34 | XMS_ITS | CCD ---
Author Organization [facility] Care Team Providers Care Center Medical Director Name Role Phone Jian Giana Unavailable Hunter Brown Unavailable [phone] MD Gypsy Mcmahon Primary Care Provider MD [...] Olvera Primary Care Unavailable KAREN ., TIFFANIE VLALES Consulting Unavailjhonatan e MCMAHON, DR GYPSY Olvera Admitting Unavailable MCMAHON, DR GYPSY Olvera Attending Unavailable MCMAHON, DR GYPSY Olvera Primary Care Unavailable MCMAHON, DR GYPSY Olvera Consulting Unavailable JAI, DR GYPSY Olvera Primary Care Unavailable MCMAHON, DR GYPSY Olvera Admitting Unavailable MCMAHON, DR GYPSY Olvera Attending Unavailable MCMAHON, DR GYPSY Olvera Consulting Unavailable MCMAHON, DR GYPSY Olvera Admitting Unavailable MCMAHON, DR GYPSY Olvera Consulting Unavailable JAI, DR GYPSY Olvera Attending Unavailable JAI, DR GYPSY Olvera Primary Care Unavailable JAI, DR GYPSY Olvera Primary Care Unavailable CLAU NASCIMENTO Attending Unavailable CLAU NASCIMENTO Admitting Unavailable JAI, DR GYPSY Olvera Primary Care Unavailable CLAU NASCIMENTO Admitting Unavailable CLAU NASCIMENTO Attending Unavailable JAI, DR GYPSY Olvera Primary Care Unavailable BOBBY, DR Nirav Camacho Consulting Unavailable BOBBY, DR Nirav Camacho Admitting Unavailable BOBBY, DR Nirav Camacho Attending Unavailable MCMAHON, DR GYPSY Olvera Admitting Unavailable MCMAHON, DR GYPSY Olvera Attending Unavailable MCMAHON, DR GYPSY Olvera Consulting Unavailable MCMAHON, DR GYPSY Olvera Primary Care Unavailable DEB, MALATHI Admitting Unavailable MCMAHON, DR GYPSY Olevra Primary Care Unavailable MI NUÑEZ Consulting Unavailable [...] Consulting Unavailable GEMBUS, ROBERT Consulting Unavailable PATRICIA, OPAL Consulting Unavailable HIGHLANDER, CLAU Shrestha Attending Unavailable HIGHLANDER, CLAU D Admitting Unavailable MCMAHON, DR GYPSY Olvera Primary Care Unavailable Jose G Ellington Unavailable Malathi Velázquez Unavailable MD Jacinto Max Attending Provider MD Jacinto Max Referring Provider [phone] MD Gypsy Mcmahon Primary Care Provider Jacinto Max Unavailable MD Jacinto Max Attending Provider MD Jacinto Max Referring Provider [phone] MD Gypsy Mcmahon Primary Care Provider DO Marvin Garcia Emergency Provider [phone] MD Gypsy Mcmahon Primary Care Provider DO Monie Wallace Attending Provider [phone] MALATHI VIEIRA Attending Unavailable DEB, MALATHI Olvera Attending Unavailable DEB, MALATHI Olvera Referring Unavailable DEB, MALATHI Olvera Admitting Unavailable DEB, MALATHI Olvera Attending Unavailable DEB, MALATHI Olvera Attending Unavailable Gypsy Mcmahon MD Primary Care Provider GYPSY MCMAHON Referring Unavailable GYPSY MCMAHON Primary Care Unavailable ROYAL, MOHAMED F Admitting Unavailable ROYAL, MOHAMED F Attending Unavailable GYPSY MCMAHON E Primary Care Unavailable GYPSY MCMAHON Referring Unavailable GYPSY MCMAHON Primary Care Unavailable ROYAL, MOHAMED F Admitting Unavailable ROYAL, MOHAMED F Attending Unavailable GYPSY MCMAHON E Primary Care Unavailable ROYAL, MOHAMED F Referring Unavailable NEFTALI MCMAHONIA E Primary Care Unavailable ROYAL, MOHAMED F Admitting Unavailable ROYAL, MOHAMED F Attending Unavailable GYPSY MCMAHON E Primary Care Unavailable MARY JANE PATTERSON JR Consulting Unavailable ARNIE, ADONIS U Consulting Unavailable GYPSY MCMAHON E Primary Care Unavailable ROYAL, MOHAMED F Attending Unavailable ROYAL, MOHAMED F Referring Unavailable GYPSY MCMAHON E Primary Care Unavailable LUIS, ARNIE ANWAR H Attending Unavailable LIUS, ARNIE ANWAR H Referring Unavailable GYPSY MCMAHON E Primary Care Unavailable ROYAL, MOHAMED F Referring Unavailable GYPSY MCMAHON E Primary Care Unavailable Gypsy Mcmahon MD Primary Care Provider [phone] Lila Bernard PA-C Attending Provider [phone] Gypsy Mcmahon MD Primary Care Provider Brayden KRISHNAN, Hortensia Admit Provider Tyrese Girard MD Other Provider Dereje Gil MD Attending Provider Moncho KRISHNAN, Jolanta Other Provider Nathaniel KRISHNAN, Jm Other Provider Renetta Patel APRN Other Provider Job Solomon DO Other Provider Candace KRISHNAN, Jurgen Shrestha Other Provider [phone] WILY INGRAM Attending Unavailable NATALY, WILY Gonsalves Referring Unavailable WILY INGRAM Attending Unavailable NATALY, WILY Gonsalves Referring Unavailable TYRESE GREENBERG Attending Unavailable Pay Saji BOYD Attending Provider ROYAL, MOHAMED F Attending Unavailable ROYAL, MOHAMED [...] Mcmahon MD Primary Care Provider Gypsy Mcmahon Admitting Unavailable Gypsy Mcmahon Attending Unavailable Saji Vaca Admitting Unavailable Lio, Saji Attending Unavailable Hortensia Owen Admitting Unavailable Gypsy Mcmahon E Primary Care Unavailable Tyrese Girard Consulting Unavailable Dereje Gil Attending Unavailab Jolanta Huang Consulting Unavailable Jm Armstrong Consulting Unavailable Renetta Patel Consulting Unavailable Job Solomon Jr Consulting UnavailJurgen Campbell Consulting UnavailLila Jain Admitting Unavailable Lila Bernard Attending Unavailable Santy, Clementina A Admitting Unavailable Diab, Clementina A Attending Unavailable DERREK KIRKLAND F Attending Unavailable GYPSY MCMAHON Referring Unavailable GYPSY MCMAHON Primary Care Unavailable DERREK KIRKLAND F Attending Unavailable GYPSY MCMAHON Referring Unavailable GYPSY MCMAHON Primary Care Unavailable KYREE FLETCHER Attending Unavailable ELTAPATSY, MIESHA Attending Unavailable KYREE FLETCHER Attending Unavailable Allergies Allergy Classification Reported Allergen(s) Allergy Type Date of Onset Reaction(s) Facility (20 sources) Promethazine; Translations: [promethazine] Drug Allergy 02-04-20 13 anaphylaxis, Anaphylaxis (disorder), Unknown, Other, Anxiety [facility] (20 sources) histamines Drug allergy Unknown [facility] Other (20 sources) Histamine H2 Inhibitors; Translations: [Histamine H2 Inhibitors] Allergy to substance 07-16-19 13 Other (See Comments) [facility] (20 sources) levoFLOXacin; Translations: [levofloxacin] Drug Allergy 07-01-19 23 Tremor (finding), Other (See Comments) [facility] (1 source) diphenhydrAMINE Drug Allergy 04-20-19 20 [facility] (1 source) ezetimibe Drug Allergy 04-20-19 20 [facility] (1 source) Gemfibrozil Drug Allergy 04-20-19 20 [facility] (2 sources) Levamisole; Translations: [Phenergan] Drug Allergy 07-16-19 13 [facility] (8 sources) NSAIDs; Translations: [NSAIDS (NON-STEROIDAL ANTI-INFLAMMATORY DRUG)] Drug allergy (disorder) 04-20-19 20 Other (See Comments) [facility] (1 source) Nasal Decongestant Drug allergy (disorder) 04-20-19 20 [facility] (1 source) Darvocet-N 100 Drug allergy (disorder) 04-20-19 20 [facility] (12 sources) diphenhydrAMINE; Translations: [diphenhydramine] Drug Allergy 10-14-19 jumpy,, Unknown [facility] (14 sources) Penicillin; Translations: [penicillin] Drug Allergy Eruption of skin (disorder) [facility] (20 sources) Penicillins; Translations: [PENICILLINS] Propensity to adverse reactions 02-25-19 24 Rash [facility] (10 sources) Antihistamines Allergy to substance 02-26-19 24 Unknown Reaction [facility] (20 sources) diphenhydrAMINE Drug Allergy 07-19-19 23 Unknown, Other (See Comments) [facility] (20 sources) ezetimibe; Translations: [EZETIMIBE] Drug Allergy 07-19-19 23 Unknown [facility] (20 sources) Gemfibrozil; Translations: [GEMFIBROZIL] Drug Allergy 07-19-19 23 Unknown [facility] (9 sources) Histamine; Translations: [HISTAMINE] Drug Allergy 02-04-20 13 [facility] (8 sources) Histamine H>2< antagonist Drug Intolerance 11-22-19 22 [facility] (8 sources) Non-steroidal anti-inflammatory agent Drug Allergy 07-19-19 23 Unknown [facility] (17 sources) Propoxyphene; Translations: [PROPOXYPHENE] Drug Allergy 07-19-19 23 Unknown [facility] (5 sources) diphenhydrAMINE; Translations: [DIPHENHYDRAMINE HCL] Drug Allergy 10-14-19 24 [facility] (19 sources) ANTIHISTAMINE 12 HOUR; Translations: [ANTIHISTAMINE 12 HOUR] Propensity to adverse reactions to drug (disorder) 05-21-19 24 Other (See Comments) [facility] (19 sources) PROPOXYPHENE N-ACETAMINOPHEN; Translations: [PROPOXYPHENE N-ACETAMINOPHEN] Propensity to adverse reactions to drug (disorder) 10-14-19 24 Other (See Comments) [facility] (13 sources) ezetimibe Drug Allergy 10-14-19 24 Other (See Comments) [facility] (13 sources) Gemfibrozil Drug Allergy 10-14-19 Other (See Comments) [facility] (12 sources) Non-steroidal anti-inflammatory agent Propensity to adverse reactions to drug 10-14-19 Other (See Comments) [facility] Medications Current Medications Medication Drug Class(es) [...] 2300 Start: 01-07-2022 take 2 tablets by mo uth every six hours as needed for pain acetaminophen (TYLENOL EXTRA STRENGTH) 500 mg tablet Take 2 tablets (1,000 mg total) by mouth every 6 (six) hours as needed for pain. 30 tablet 01/07/2022 Active acetaminophen (T ylenol) 325 MG tablet every 6 (six) hours. Active acetic acid 2.5 mg/ml irriga tion solution (7 sources) Start: 01-07-2024 acetic acid 0. 25 [...] Active ascorbic acid 250 mg oral tablet (20 sources) Vitamin C Start: 02-21-2024 take 1 tablet by mouth twice daily Ascorbic Acid (Vitamin C) 250 mg tablet Active 250 MG PO Twice daily February 21, 2024 1:00am aspirin 81 mg delayed release oral tablet (20 sources) Platelet Aggregation Inhibitor, Nonsteroidal Anti-inflammatory Drug Start: 04-29-2024 take 1 tablet by mouth once daily Aspirin (Adult Aspirin Regimen) 81 mg tablet,delayed release (DR/EC) Active 81 MG PO Daily April 29, 2024 12:00am Start: 11-19-2023 End: 12-19-2023 take 1 tablet [...] 15, 2023 2:36pm Aspirin 81 Activ e Calcium Gluconate (1 source) Start: 01-01-2024 calcium glucon ate IVPB 1000 mg/50 mL (20 mg/mL premix) cholecalciferol 0.05 mg oral tablet (20 sources) Vitamin D Start: 12-06-2017 take 1 tablet by mouth once daily Cholecalciferol (Vitamin D3) (Vitamin D3) 2,000 unit Tablet Active 2000 UNIT PO Daily December 06, 2017 12:00am take 1 tablet by mouth in the mo rning cholecalciferol (Vitamin D-3) 50 MCG (2000 UT) capsule Take 1 tablet by mouth in the morning. Active cholecalciferol, vitamin D3, (D3-50 CHOLECALCIFEROL ORAL) (15 sources) take 1 tablet by mouth in [...] tablet by mouth in the morning. Active cilostazol 100 mg oral tablet (1 source) Phosphodiesterase 3 Inhibitor Start: 07-27-2024 take 1 tablet by mouth in the morning, then take 1 tablet by mouth at bedtime cilostazoL (PLETAL) 100 mg tablet Take 1 tablet (100 mg total) by mouth in the morning and 1 tablet (100 mg total) before bedtime. 180 tablet 4 07/27/2024 Active Start: 07-27-2024 take 1 tablet by ad th in the morning, then take 1 tablet by mouth at bedtime cilostazoL (PLETAL) 100 mg tablet Take 1 tablet (100 mg total) by mouth in the morning and 1 tablet (100 mg total) before bedtime. 180 tablet 4 07/27/2024 Active ciprofloxacin 500 mg oral tablet (2 sources) Quinolone Antimicrobial Start: 02-19-2022 End: 11-16-2023 take 1 tablet by mouth every twelve hours Ciprofloxacin HCl 500 MG 1 tablet Orally every 12 hrs for 7 day(s) Feb, Active clopidogrel 75 mg oral tablet (20 sources) P2Y12 Platelet Inhibitor Start: 04-01-2023 End: 05-05-2024 take 1 tablet by mouth once daily Clopidogrel 75 mg tablet Active 75 MG PO Daily June 07, 2024 12:00am Start: 09-22-2022 clopidogrel Or al, Refills(s) 0 [...] mg/ml vaginal cream (20 sources) Estrogen Start: 06-05-2024 Estradiol 0.01 % (0.1 mg/gram) cream Active 0 .ROUTE .COMPLEX 42.5 June 05, 2024 12:24pm INSERT 1 GRAM VAGINALLY TWICE WEEKLY DIRECTED Start: 05-03-2023 estradioL (EST RACE) 0.01 % (0.1 mg/gram) vaginal cream as needed. 05/03/2023 Active Start: 04-26-2023 End: 06-05-2024 Estradiol 0.01 % (0.1 mg/gra m) cream Discontinued 0 .ROUTE .COMPLEX 42.5 April 26, 2023 10:03am June 05, 2024 12:24pm INSERT 1 GRAM VAGINALLY TWICE WEEKLY DIRECTED [...] Taking; Refills: 1; Qty: 1 Each; Provider: Jai Olvera Start: 05-19-2022 estradiol 0.1 mg/g Vag [...] Orally daily for 7 days Mar, Active glucagon (rdna) 1 mg injection (1 source) [...] is (Daily Probiotic) 2.5 billion cell capsule (10 sources) Start: 04-15-2023 take 1 capsule by [facility] once daily, then take 2.5 capsules by mouth once daily Start: 04-15-2023 Start: 04-15-2023 labetalol hydrochloride 5 mg/ml injectable solution (1 source) beta-Adrenergic Daryl Start: 01-02-2024 take 20 mg intravenously every six hours as needed 20 mg, intravenous, Every 6 hours PRN, high blood pressure, Starting on 01/02/24 at 0136, For systolic blood pressure greater than 160 mmHg, hold for HR lactobacillus acidophilus [id number] unt oral tablet (2 sources) take 1 tablet by mouth every twelve hours Lactobacillus - 1 tablet twice a day Active lactobacillus acidophilus 0.05 mg / lactobacillus bulgaricus 0.05 mg oral tablet (4 sources) take 1 tablet by mouth every twelve hours Lactobacillus - 1 tablet twice a day Active lactobacillus acidophilus [id number] unt / pectin 100 mg oral tablet (13 sources) take 1 tablet by mouth once daily at breakfast acidophilus-pecti n, citrus 25 million cell -100 mg tablet Take 1 tablet by mouth daily with breakfast. Active loperamide hydrochloride 2 mg oral capsule (20 sources) Opioid Agonist Start: 04-29-2024 Loperamide (Anti-Diarrheal (Loperamide)) 2 mg capsule Active 2 MG PO .6hr as needed for loose stool April 29, 2024 12:00am Start: 05-21-2023 End: 08-18-2023 take 1 capsule [...] tablet (3 sources) take 1 tablet by ad th every twenty-four hours Magnesium Oxide 400 MG 1 tablet as needed Orally Once a day Active magnesium sulfate IVPB 2000 mg/50 mL in iso-osmotic water (40 mg/mL premix) (1 source) Start: 01-01-2024 magnesium sulfate IVPB 2000 mg/50 mL in iso-osmotic water (40 mg/mL premix) melatonin 3 mg oral tablet (20 sources) Start: 02-21-2024 take 2 capsules by mouth once daily at bedtime as needed for sleep Melatonin 3 mg capsule Active 6 MG PO Daily at bedtime as needed for sleep February 21, 2024 1:00am take 1 tablet by mouth once macy y melatonin 10 mg tablet Take 1 tablet by mouth nightly. Active menthol 0.04 mg/mg topical g el (8 sources) Menthol, Topical Analgesic, (Biofreeze) 4 % gel Biofreeze Active methenamine hippurate 1000 m g oral tablet (3 sources) Start: 07-06-2024 Methenamine Hi ppurate 1 gram tablet Active 1 GM PO Twice daily 60 July 06, 2024 12:00am take 1 tablet by mouth at bedtim e methenamine (MANDELAMINE) 1 GM tablet Take 1 tablet (1 g total) by mouth in the morning and 1 tablet (1 g total) before bedtime. Active methocarbamol 500 mg oral tablet (1 source) Muscle Relaxant Start: 01-06-2024 End: 01-09-2024 take 500 mg by mouth three times [...] Active Multiple Vitamins-Minerals (multivitamin with minerals) tablet (8 sources) take 1 tablet by mouth in the morning Multiple Vitamins-Minerals (multivitamin with minerals) tablet Take 1 tablet by mouth in the morning. Active Multivitamin (Daily Multi-Vitamin) tablet (18 sources) Start: 03-23-2024 take 1 tablet by [...] (NARCAN) 4 mg/actua tion spray,non-aerosol nasal spray (11 sources) Start: 11-19-2023 naloxone (NARC AN) 4 [...] Status: Ordered nebivolol 5 mg oral tablet (20 sources) Start: 11-09-2023 take 2 tablets by mouth in the morning nebivoloL (BYSTOLIC) 5 mg tablet Indications: hypertension Take 2 tablets (10 mg total) by mouth in the morning. Indications: high blood pressure. 11/09/2023 Active Start: 11-09-2023 End: 02-21-2024 take 1 tablet by mouth once daily Nebivolol 5 mg tablet Discontinued 5 MG PO Daily November 22, 2023 12:00am February 21, 2024 2:35pm nitrofurantoin, macrocrystals 25 mg / nitrofurantoin, monohydrate 75 mg oral capsule (3 sources) Nitrofuran Antibacterial Start: 05-19-2022 take 1 mg by mouth twice daily Macrobid 100 mg Cap mg cap(s), Oral, BID, Refills(s) 0 Start Date: 05/19/22 Status: Ordered Start: 05-14-2022 take 1 capsule by [facility] every twelve hours Macrobid 100 MG [...] 4 tablet 11/19/2023 12/24/2023 Discontinued (Therapy completed) polyethylene glycol 3350 40883 mg powder for oral solution (1 source) [...] mEq/50 mL in water (0.2 mEq/mL premix) simvastatin 40 mg oral tablet (20 sources) HMG-CoA Reductase Inhibitor Start: 08-24-2023 End: 06-12-2024 take 1 tablet by mouth once daily Simvastatin 40 mg tablet Active 40 MG PO Daily June 12, 2024 10:07am Start: 08-23-2023 End: 08-24-2023 take 2 tablets [...] a day; Note: Source Status: Taking; Provider: Jai Olvera Start: 05-14-2022 End: 08-18-2023 take 1 tablet by mouth once daily Spironolactone 25 mg tablet Discontinued 25 MG PO Daily April 15, 2023 1:00am August 18, 2023 10:02am FreeTextSi tablet Orally Once a day; Note: Source Status: Taking; Provider: Jai Olvera take 2 tablets by [facility] in the morning spironolactone (ALDACTONE) 25 [...] Active zinc acetate 50 mg oral capsule (8 sources) Start: 03-23-2024 take 1 capsule by [...] Active alendronic acid 70 mg oral tablet (13 sources) Bisphosphonate Start: 12-06-2017 End: 04-15-2023 take 1 tablet by mouth every week Alendronate 70 mg tablet Discontinued 70 MG PO every week December 06, 2017 12:00am April 15, 2023 2:36pm alosetron 0.5 mg oral tablet (20 sources) Serotonin-3 Receptor Antagonist Start: 10-03-2021 End: 10-27-2023 take 0.5 tablet by mouth once daily as needed Amino Acids-Protein Hydrolys (Liquacel) 16-100 gram-kcal/30 mL liquid (3 sources) Start: 05-22-2024 End: 05-25-2024 Amino Acids-Protein Hydrolys (Liquacel) 16-100 gram-kcal/30 mL liquid Discontinued ML PO Twice daily May 22, 2024 12:00am May 25, 2024 2:39pm Start: 05-22-2024 Amino Acids-Pr otein Hydrolys (Liquacel) 16-100 gram-kcal/30 mL liquid Active ML PO Twice daily May 22, 2024 12:00am amylase [id number] unt / lipase 93576 unt / protease [id number] unt delayed release oral capsule (8 sources) Start: 06-02-2023 End: 07-07-2023 take 2 capsules by mouth once daily at mealtime, then take 8 capsules by mouth once daily Uclqwj-Uavxsnxu-Zzaufhk (Creon) 36,000-114,000- 180,000 unit capsule,delayed release(DR/EC) Discontinued [...] a day for 10 days Apr, Not-Taking bismuth subsalicylate 17.5 mg/ml oral suspension (20 sources) Bismuth Start: 05-21-2023 End: 05-22-2024 Bismuth Subsalicylate (Pepto-Bismol) 262 mg/15 mL suspension Discontinued 524 MG PO every 30 to 60 minutes as needed for diarrhea May 21, 2023 12:00am May 22, 2024 2:21pm do not exceed 8 doses in a [...] bedtime. Chew before meals. Active Pepto-Bismol Act judah budesonide 3 mg delayed release oral capsule (20 sources) Corticosteroid Start: 08-18-2023 End: 07-04-2024 take 1 capsule by mouth once daily Budesonide 3 mg capsule,delayed,extend.release Discontinued 3 MG PO Daily September 22, 2023 8:51am July 04, 2024 9:07pm Start: 05-21-2023 End: 07-07-2023 take 2 capsules [...] 21, 2023 10:14am take 1 capsule by [facility] every twenty-four hours in the morning budesonide EC (ENTOCORT EC) 3 mg 24 hr capsule Take 1 capsule (3 mg total) by mouth in the morning. Active calcium chloride 0.0014 meq/ml / potassium chloride [...] after activating; dissolve drug prior to administration Look-alike/sound- alike medication - verify indication for use. Do not co-administer with calcium-containin g solutions such as Lactated Ringers., Indication: UTI cephalexin 500 mg oral capsule (20 sources) Cephalosporin Antibacterial Start: 04-13-2024 End: 05-05-2024 take 1 capsule by mouth three times daily Cephalexin 500 mg capsule Discontinued 500 MG PO Three times daily April 13, 2024 1:00am May 05, 2024 12:15pm Start: 01-07-2024 End: 01-10-2024 CEPHalexin (KEFLEX) 500 [...] 19, 2023 12:00am May 24, 2023 1:33pm Cholestyramine Resin (9 sources) Bile Acid Sequestrant Start: 05-21-2023 End: [...] after dose collagenase 0.25 unt/mg topical ointment (10 sources) Collagen-specific Enzyme Start: 02-21-2024 End: 03-23-2024 Collagenase Clostridium Histo. (Santyl) 250 unit/gram ointment Discontinued 1 APPLIC TOPICAL Daily February 21, 2024 1:00am March 23, 2024 3:12pm Start: 10-06-2023 End: 11-16-2023 SantyL ointment APPLY DAILY TO WOUND BED FOR 30 DAYS 10/06/2023 11/16/2023 Discontinued (Therapy completed) cranberry preparation 250 mg oral capsule (18 sources) Non-Standardized Food Allergenic Extract, Non-Standardized Plant [...] Active docusate sodium 100 mg oral capsule (9 sources) Start: 02-21-2024 End: 03-23-2024 take 1 [...] procedure, # 2 cap(s), Refills(s) 0, Pharmacy: [facility]/pharmacy #[id number], 178, cm, 05/19/22 [...] for use. fidaxomicin 200 mg oral tablet (20 sources) Macrolide Antibacterial Start: 04-22-2023 End: 05-21-2023 [...] 3000 mg powder fo r oral solution (17 sources) Start: 08-23-2023 End: 11-01-2023 Fosfomycin Tromethamine [...] 9:59am Fosfomycin Tromethamine 3 gr am packet (16 sources) Start: 11-22-2023 End: 03-23-2024 Fosfomycin Tromethamine [...] 01, 2023 2:46pm November 22, 2023 1:10pm gabapentin 100 mg oral capsule (16 sources) Anti-epileptic Agent Start: 03-23-2024 End: 07-13-2024 take 1 capsule by mouth twice daily Gabapentin 100 mg capsule Discontinued 100 MG PO Twice daily 60 March 23, 2024 4:40pm July 13, 2024 9:03am Start: 02-21-2024 End: 03-23-2024 take 1 capsule by mouth three times daily Gabapentin 100 mg capsule Discontinued 100 MG PO Three times daily February 21, 2024 1:00am March 23, 2024 4:40pm Start: 01-02-2024 take 100 mg by mouth three times daily 100 mg, oral, 3 times daily, First dose on 01/02/24 at 1700, Look-alike/sound-alike medication - verify indication for use. 500 ml heparin sodium, porcine 50 unt/ml [...] / losartan potassium 50 mg oral tablet (13 sources) Thiazide Diuretic, Angiotensin 2 Receptor Daryl [...] Iron Not-Taking levoFLOXacin 250 mg oral tablet (8 sources) Quinolone Antimicrobial Start: 08-11-2023 End: 08-18-2023 take 1 tablet by mouth once daily Levofloxacin 250 mg tablet Discontinued 250 MG PO Daily 5 August 11, 2023 12:00am August 18, 2023 9:33am 1 ml methylPREDNISolone acetate 40 mg/ml injection (4 sources) Corticosteroid Start: 02-28-2024 End: 02-28-2024 methylPREDNISolone acetate (DEPO-Medrol) injection 40 mg Start: 02-28-2024 End: 02-28-2024 40 mg, Intra-articular, Once PRN Procedure, Starting on 02/28/24 at 1532, For 1 dose 24 hr [...] tid prn for 10 days Apr, Not-Taking pantoprazole 20 mg delayed release oral tablet (20 sources) Proton Pump Inhibitor Start: 05-21-2023 End: 07-04-2024 take 1 tablet by mouth once daily Pantoprazole 20 mg tablet,delayed release (DR/EC) Discontinued 20 MG PO Daily August 09, 2023 12:00am July 04, 2024 9:07pm Start: 11-04-2021 pantoprazole ( PROTONIX) 40 mg [...] Taking; Refills: 3; Qty: 90 Tablet; Provider: Bobby Harrison ( ) prostat (8 sources) Start: 02-21-2024 End: 05-22-2024 prostat Discontinued PO Twic e daily February 21, 2024 1:00am May 22, 2024 2:20pm Start: 02-21-2024 prostat Active PO Twice daily February 21, 2024 1:00am Start: 02-21-2024 prostat Active PO Twice daily February 21, 2024 12:00am Psyllium (6 sources) Metamucil Not-Ta oral rivaroxaban 2.5 mg oral tablet (19 sources) Factor Xa Inhibitor Start: 4 End: 5 take 1 tablet by mouth twice daily Rivaroxaban (Xarelto) 2.5 mg tablet Discontinued 2.5 MG PO Twice daily April 29, 2024 12:00am June 07, 2024 1:49pm 1000 ml sodium chloride 9 mg/ml injection (1 source) Start: 4 End: 4 3 mL/hr, intra-arterial, Continuous, Starting on 01/01/24 at 1945, For 5 days sodium zirconium cyclosilicate 61479 mg powder for oral suspension (1 source) Start: End: 4 10 g, oral, Once, On 01/03/24 at [...] Not-Taking traMADol hydrochloride 50 mg oral tablet (20 sources) Opioid Agonist Start: 4 End: 5 take 1 tablet by mouth once daily [...] Start: 01-26-2023 take 1 capsule by mo [facility] every six hours Vancomycin HCl 125 MG 1 capsule Orally every 6 hrs for 14 days Mar, Active Start: 01-26-2023 Vancomycin HCl 250 MG 1 capsule four times a day for 14 days, then 1 capsule twice a day for 14 days Orally as directed for 28 days PLEASE CHECK ALLERGIES Jan, Active Start: 01-26-2023 take 1 capsule by mo [facility] every twenty-four hours Vancomycin [...] Abdominal pain; Translations: [Unspecified abdominal pain] Episodic Cardiac dysrhythmias (2 sources) Tachycardia, unspecified; Translations: [Tachycardia, unspecified] Onset: 07-26-2024 Episodic Chronic ulcer of skin (20 sources) [...] disease (20 sources) Atherosclerotic heart disease of [place] coronary artery without angina pectoris; Translations: [Coronary arteriosclerosis] Onset: 03-03-2022 Chronic Coronary atherosclerosis and other heart disease (1 source) Presence of aortocoronary bypass graft; Translations: [PRESENCE AORTOCORONARY BYPASS GRAFT] Onset: 03-24-2022 Episodic Disorders of lipid metabolism (20 sources) Hyperlipidemia; Translations: [Pure hypercholesterolemia, unspecified] Onset: 03-24-2022 05-14-2022 Chronic Diverticulosis and diverticulitis (20 sources) Diverticulum of large intestine without hemorrhage; Translations: [Diverticulosis of large intestine without perforation or abscess without bleeding] Chronic Esophageal disorders (11 sources) Gastro-esophageal reflux disease without esophagitis; Translations: [Gastroesophageal reflux disease] Onset: 03-24-2022 11-18-2023 Chronic Essential hypertension (20 sources) Hypertensive disorder; Translations: [Essential (primary) hypertension] Onset: 01-15-2022 05-14-2022 Chronic Fluid and electrolyte disorders (2 sources) Dehydration; Translations: [Hyperkalemia] Onset: 11-10-2021 Episodic Gangrene (20 sources) Atherosclerosis of [place] arteries of extremities with gangrene, right leg; Translations: [Critical lower limb ischemia ] Onset: 10-14-2023 02-24-2024 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) Gastric ulcer; Translations: [Gastric ulcer, unspecified as acute or chronic, without hemorrhage or perforation] Onset: 11-10-2021 Chronic Gastroduodenal ulcer (except hemorrhage) (4 sources) H/O: peptic ulcer; Translations: [Personal history of peptic ulcer disease] 05-22-2024 Episodic Genitourinary symptoms and ill-defined conditions (13 sources) Urge incontinence of urine; Translations: [Urge incontinence] Onset: 11-09-2023 01-27-2023 Chronic Genitourinary symptoms and ill-defined conditions (20 sources) Dysuria; Translations: [Sensation as if bladder still full] Onset: 12-27-2021 Episodic Headache; including migraine (4 sources) Headache; including migraine; Translations: [HEADACHE UNSPECIFIED] Onset: 03-20-2022 Immunity disorders (10 sources) Patient immunocompromised; Translations: [Immunodeficiency, unspecified] Onset: 11-18-2023 11-18-2023 Chronic Immunizations and screening for infectious disease (1 source) Encounter for immunization Episodic Joint disorders and dislocations; trauma-related (18 sources) Derangement of right knee; Translations: [Unspecified internal derangement of right knee] Onset: 11-02-2022 11-02-2022 Chronic Nausea and vomiting (1 source) Nausea with vomiting, unspecified Episodic Noninfectious gastroenteritis (20 sources) Microscopic colitis; Translations: [Microscopic colitis, unspecified] Onset: 01-27-2021 Resolved: 03-27-2021 Chronic Open wounds of extremities (1 source) Laceration [...] group home (current) drug therapy; Translations: [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] Onset: 03-24-2022 Episodic Other circulatory disease (6 sources) Critical [...] Chronic Other diseases of veins and lymphatics (10 sources) Venous ulcer of lower extremity due [...] incontinence of feces] Episodic Other gastrointestinal disorders (5 sources) Diarrhea, unspecified; Translations: [Diarrhea] Episodic Other gastrointestinal disorders (2 sources) Other specified symptoms and signs involving the digestive system and abdomen; Translations: [Alternating constipation and diarrhea] Episodic Other nervous system disorders (8 sources) Postoperative pain ; Translations: [Other acute postprocedural pain] 01-21-2024 Episodic Other non-epithelial cancer of skin (1 source) Personal history of other malignant neoplasm of skin; Translations: [PERSONAL HX OTH MALIG NEOPLASM SKIN] Onset: 03-24-2022 Episodic Other non-traumatic joint disorders (2 sources) Pain in left knee; Translations: [Pain in joint, lower leg] 02-28-2024 Episodic Other nutritional; endocrine; and metabolic disorders (18 sources) Hypercalcemia; Translations: [Hypercalcemia] Onset: 11-09-2023 11-18-2023 [...] and visceral atherosclerosis (20 sources) Atherosclerosis of [place] arteries of right leg with ulceration of other part of lower leg; Translations: [Atherosclerosis of [place] arteries of left leg with ulceration of [...] personal risk factors, not elsewhere classified Episodic Residual codes; unclassified (5 sources) Viral syndrome; Translations: [Other general symptoms and signs] 04-13-2024 Episodic Residual codes; unclassified (4 sources) Other general symptoms and signs; Translations: [Other general symptoms] 04-13-2024 Episodic Residual codes; unclassified (8 sources) History of excision of small intestine; Translations: [Acquired absence of other specified parts of digestive tract] Onset: 05-17-2024 04-30-2024 Episodic Screening and history of mental health [...] EXPOS COVID-19] Onset: 08-15-2021 Unclassified (1 source) 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 Onset: 11-05-2023 Unclassified (4 sources) A [facility] screening has identified you as FRAIL or AT RISK FOR FRAILTY. This puts you at a higher risk for infection, illness, falls, and other injuries. Here are four ways to help you reduce your risk of frailty: 1. IDENTIFY EARLY SIGNS OF FRAILTY Discuss contributing factors and concerns with your doctor 2. BE ACTIVE Walking and light strengthening exercises will help reduce weakness 3. EAT WELL Aim for three healthy meals a day that are high in protein 4. THINK POSITIVE Keep your mind active by being sociable and continuing to learn References: Stay Strong: Four Ways to Beat the Frailty Risk [email or web address].org/health/wel cvckw-nxx-qaiqegmndr/ wwwh-ojhlyq-srls-ways -wj-rqfk-nme-fra ilty-risk 05-05-2024 Unclassified (1 source) Venous ulcer of ankle, right ([facility]) [I83.013, L97.319] Onset: 12-24-2023 Unclassified (1 source) go over art doppler and art duplex Onset: 07-27-2024 Viral infection (2 sources) COVID-19; Translations: [COVID-19] [...] Onset: 01-19-2022 Episodic Deficiency and other anemia (18 sources) Anemia; Translations: [Anemia, unspecified] Onset: 11-09-2023 11-18-2023 Episodic Fracture of neck of femur (hip) (18 sources) Closed fracture of neck of femur; [...] Translations: [Clostridium difficile colitis] Onset: 11-09-2023 Episodic Intestinal obstruction without hernia (12 sources) Intestinal obstruction; Translations: [Unspecified intestinal obstruction, unspecified as to partial versus complete obstruction] Onset: 04-28-2024 04-28-2024 Episodic Malaise and fatigue (4 sources) Weakness; Translations: [WEAKNESS] Onset: 11-02-2021 Episodic Mood disorders (10 sources) Mood disorders Onset: 11-18-2023 11-18-2023 Noninfectious gastroenteritis (20 sources) Colitis; Translations: [Noninfective gastroenteritis and colitis, unspecified] Onset: 05-19-2022 Episodic Other aftercare (1 source) 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; 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: [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] Onset: 11-10-2021 Episodic Other aftercare (2 sources) Encounter for therapeutic drug level monitoring; Translations: [Encounter for therapeutic drug level monitoring] Onset: 12-15-2023 Episodic Other aftercare (10 sources) Patient encounter status; Translations: [Encounter for therapeutic drug level monitoring] Onset: 12-15-2023 12-15-2023 Episodic Other connective tissue disease (18 sources) Bursitis of left hip; Translations: [Other bursitis of hip, left hip] Onset: 11-02-2022 11-02-2022 Episodic Other connective tissue disease (18 sources) Full thickness rotator cuff tear; Translations: [Complete rotator cuff tear or rupture of right shoulder, not specified as traumatic] Onset: 11-02-2022 11-02-2022 Episodic Other diseases of veins and lymphatics (1 source) Venous insufficiency (chronic) (peripheral); Translations: [VENOUS INSUFF CHRONIC PERIPHERAL] Onset: 11-10-2021 Episodic Other diseases of veins and lymphatics (11 sources) Peripheral venous insufficiency; Translations: [Venous insufficiency (chronic) (peripheral)] Onset: 11-11-2022 11-18-2023 Episodic Other gastrointestinal disorders (20 sources) Diarrhea; Translations: [Diarrhea, unspecified] Onset: 11-09-2023 04-06-2023 Episodic Other gastrointestinal disorders (2 sources) Full incontinence of feces; Translations: [FULL INCONTINENCE OF FECES] Onset: 02-19-2022 Episodic Other nervous system disorders (18 sources) Finding related to ability to move; Translations: [Other abnormalities of gait and mobility] Onset: 11-02-2022 11-02-2022 Episodic Other nervous system disorders (5 sources) Other acute postprocedural pain; Translations: [Other acute postoperative pain] Onset: 04-28-2024 05-05-2024 Episodic Other skin disorders (10 sources) Ingrowing nail; Translations: [Ingrowing nail] Onset: 11-18-2023 11-18-2023 Episodic Residual codes; unclassified (6 sources) Acquired absence of other specified parts of digestive tract; Translations: [Other postprocedural status] Onset: 03-24-2022 05-05-2024 Episodic Unclassified (7 sources) Finding of sensation [...] extremities with ulcer] Onset: 10-14-2023 10-14-2023 Episodic Results Test Name Value Interpretation Reference Range Facility Office Visiton 07-26-2024 Follow-up visit [id number] Sage Hsu 1935 F Date Provider Department Center 07/26/2024 KY[facility] PANTOJA [facility] Family History Problem Relation Age of Onset Aneurysm Mother Heart attack Father Family Status - Relation Status Age at Mother Father Level of Service:67318 [place] OFFICE/OUTPATIENT ESTABLISHED MOD MDM 30 MIN Reason for Visit and Comments: Hypertension [208087] Peripheral Vascular Disease [458] Normal [facility] Urine Cultureon 07-25-2024 Bacteria identified Cx Nom (U) <9,000 colonies/ml mixed bacterial skin contaminants 2 Days PERFORMED BY: [place] [address] PATHOLOGIST NUCLEAR ENGINEER JESSIKA CROFT M.D. Normal [facility] Comment on above: Performed By: #### C UU #### [address] Basophils/100 WBC Manual cnt (Bld)on 07-07-2024 Basophils/100 WBC (Bld) Basophils/100 leukocytes in Blood by Manual count Low 0.2-2.0 [facility] Eosinophils/100 WBC Manual c nt (Bld)on 07-07-2024 Eosinophils/100 WBC (Bld) Eosinophils/100 leukocytes in Blood by Manual count Low 0.9-7.0 [facility] Estimated glomerular filtrat ion rate (GFR) non- Americanon 07-07-2024 GFR/1.73 sq M.predicted among non-blacks MDRD (S/P/Bld) [Vol rate/Area] Estimated glomerular filtration rate (GFR) non- Low >=60 mL/min/1.7 3m 2 [facility] Globulin Calc (S) [Mass/Vol] on 07-07-2024 Globulin (S) [Mass/Vol] Serum globulin measurement by calculation (mass/volume) [facility] INR in Platelet poor plasma by Coagulation assayon 07-07-2024 INR Coag (PPP) [Relative time] INR in Platelet poor plasma by Coagulation assay [facility] Comment on above: DESIRED INR:2.0-3.0 CONDITIONS NOT LISTED BELOW2.5-3.5 FOR PROSTHETIC HEART VALVE REPLACEMENT2.5-3.5 RECURRENT THROMBOSIS Laboratory - Chemistry and C hemistry - challengeon 07-07-2024 Albumin [Mass/Vol] 3.1 g/dL Low 3.4-5.0 [facility] ALP [Catalytic activity/Vol] 39 U/L Low 46-116 [facility] ALT [Catalytic activity/Vol] 25 U/L 14-59 [facility] AST [Catalytic activity/Vol] 18 U/L 15-37 [facility] Bilirubin [Mass/Vol] 0.4 mg/dL 0.2-1.0 [facility] Calcium [Mass/Vol] 10.6 mg/dL High 8.5-10.1 [facility] Chloride [Moles/Vol] 104 mmol/L 98-107 [facility] CO2 [Moles/Vol] 26.7 mmol/L 21.0-32.0 [facility] Creatinine [Mass/Vol] 1.36 mg/dL High 0.55-1.02 [facility] GFR/1.73 sq M.predicted MDRD (S/P/Bld) [Vol rate/Area] 45 mL/min/{1.73_m2} Low >=60 mL/min/1.7 3m 2 [facility] Glucose [Mass/Vol] 93 mg/dL 74-106 [facility] Potassium [Moles/Vol] 4.5 mmol/L 3.5-5.1 [facility] Protein [Mass/Vol] 7.8 g/dL 6.4-8.2 [facility] Sodium [Moles/Vol] 142 mmol/L 136-145 [facility] TSH Qn 1.008 m[IU]/L 0.358-3.74 0 [facility] Urea nitrogen [Mass/Vol] 39.0 mg/dL High 7.0-18.0 [facility] Urea nitrogen/Creatinine [Mass ratio] 28.7 mg/mg [facility] Laboratory - Hematology and Cell countson 07-07-2024 Lymphocytes/100 WBC (Bld) 12.0 % Low 20.5-60.0 [facility] Monocytes/100 WBC (Bld) 8.0 % 1.7-12.0 [facility] No Panel Informationon 07-07 Absolute Basophils (Manual) 0.00 10 3/uL 0.00-0.10 [facility] Acetaminophen Level <2.0 ug/mL Low 10.0-30.0 [facility] Eosinophils # (Manual) 0.00 10 3/uL 0.00-0.70 [facility] Ethyl Alcohol Level <3 mg/dL [facility] Comment on above: NOTE: 80 mg/dl is th e legal limit for a blood alcohol level Lymphocytes # (Manual) 1.63 10 3/uL 1.20-3.80 [facility] Monocytes # (Manual) 1.08 10 3/uL High 0.30-0.80 [facility] Segmented Neutrophils # (Manual) 10.88 10 3/uL High 1.4-6.5 [facility] Troponin I High Sensitivity 19.3 pg/mL 4.0-51.3 [facility] Comment on above: CUT-OFF POINTS HAVE [...] DIAGNOSTIC AND CLINICAL INFORMATION. Prothrombin time (PT)on 06-10 PT Coag (PPP) [Time] Prothrombin time (PT) 9.0- 11.6 [facility] Segmented neutrophils/100 WB C Manual cnt (Bld)on 07-07-2024 Segmented neutrophils/100 WBC (Bld) Manual blood segmented neutrophils/100 leukocytes High 43.0-75.0 [facility] Serum or plasma albumin/glob ulin mass ratioon 07-07-2024 Albumin/Globulin [Mass ratio] Serum or plasma albumin/globulin mass ratio [facility] Serum or plasma anion gap de terminationon 07-07-2024 Anion gap [Moles/Vol] Serum or plasma an ion gap determination [facility] Urine Cultureon 07-07-2024 Bacteria identified Cx Nom (U) ORGANISM: Enterobacter cloacae (O:ENTCLO) [place] Count >100,000 Aerobic JODY Charge (NMIC56) -- SUSCEPTIBILITY - ORGANISM: O:ENTCLO ANTIBIOTIC INTERPRETATION JODY Amikacin S <16 Aztreonam IB <4 Cefepime S <2 Ceftazidime IB <1 Ceftazidime/Avibactam S <4 Ceftolozane/Tazobactam S <2 Ceftriaxone IB <1 Cefuroxime R* 16 Ciprofloxacin S <0.25 Ertapenem S <0.5 Gentamicin S <2 Levofloxacin S <0.5 Meropenem S <1 Meropenem/Vaborbactam S <2 Nitrofurantoin I 64 Piperacillin/Tazobactam IB <8 Tetracycline S <4 Tigecycline S <2 [...] RESISTANT TO ALL B-LACTAM DRUGS. PERFORMED BY: [place] [address] PATHOLOGIST NUCLEAR ENGINEER JESSIKA CROFT M.D. Normal [facility] Comment on above: Performed By: #### S CAN CBC, BMP #### [facility] [address] Urine cultureOrdered By: Christiano Vaca on 07-07-2024 Bacteria identified Cx Nom (U) Abnormal [facility] Basic Metabolic Panelon 04-09 Anion gap [Moles/Vol] 8.5 mmol/L Normal 6.0-15.0 [facility] Comment on above: Performed By: #### C UU #### [facility] [address] Calcium [Mass/Vol] 7.9 mg/dL Low 8.6-10.3 [facility] Comment on above: Performed By: #### C UU #### [facility] [address] Chloride [Moles/Vol] 108 mmol/L High 98-107 [facility] Comment on above: Performed By: #### C UU #### [facility] [address] CO2 [Moles/Vol] 25.4 mmol/L Normal 21.0-31.0 [facility] Comment on above: Performed By: #### C UU #### [facility] [address] Creatinine [Mass/Vol] 1.08 mg/dL Normal 0.60-1.20 [facility] Comment on above: Performed By: #### C UU #### [facility] [address] Creatinine Clr Calc Pharmacy 39.69 Normal [facility] Comment on above: Result Comment: PERF ORMED BY: [place] [address] PATHOLOGIST NUCLEAR ENGINEER DERREK HECK M.D. Performed By: #### C UU #### [address] Estimated GFR 49.715 mL/Min Normal [facility] Comment on above: Performed By: #### C UU #### [facility] [address] Glucose [Mass/Vol] 83 mg/dL Normal 70-100 [facility] Comment on above: Result Comment: [place] Glucose Reference Range is dependent on time and content of last meal. Glucose of more than 200 mg/dL in a nonstressed, ambulatory subject supports the diagnosis of Diabetes Mellitus. ADA recommended reference range Performed By: #### C UU #### [facility] [address] Potassium [Moles/Vol] 3.9 mmol/L Normal 3.5-5.1 [facility] Comment on above: Performed By: #### C UU #### [facility] [address] Sodium [Moles/Vol] 138 mmol/L Normal 136-145 [facility] Comment on above: Performed By: #### C UU #### [address] Urea nitrogen [Mass/Vol] 18 mg/dL Normal 7-25 [facility] Comment on above: Performed By: #### C UU #### [facility] [address] Basophils Auto (Bld) [#/Vol] Ordered By: Dereje Gil on 05-05-2024 Basophils (Bld) [#/Vol] Automated basophil count 0.0-0.2 [facility] Basophils/100 WBC Auto (Bld) Ordered By: Dereje Gil on 05-05-2024 Basophils/100 WBC (Bld) Automated basophil % . [facility] Calcium [Mass/volume] in Ser um or PlasmaOrdered By: Dereje Gil on 05-05-2024 Calcium [Mass/Vol] Calcium [Mass/volume ] in Serum or Plasma Low 8.6-10.3 [facility] Carbon dioxide, total [Moles /volume] in Serum or PlasmaOrdered By: Dereje Gil on 05-05-2024 CO2 [Moles/Vol] Carbon dioxide, tota l [Moles/volume] in Serum or Plasma 21.0-31.0 [facility] Chloride [Moles/volume] in S isabel or PlasmaOrdered By: Dereje Gil on 05-05-2024 Chloride [Moles/Vol] Chloride [Moles/vol ume] in Serum or Plasma High 98-107 [facility] Complete Blood Count Auto Di ffon 05-05-2024 Basophils (Bld) [#/Vol] 0.0 10*3/uL Normal 0.0-0.2 [facility] Comment on above: Result Comment: PERF ORMED BY: [place] [address] PATHOLOGIST NUCLEAR ENGINEER DERREK HECK M.D. Performed By: #### C UU #### [address] Basophils/100 WBC (Bld) 0.4 % Normal . [facility] Comment on above: Performed By: #### C UU #### [address] Eosinophils (Bld) [#/Vol] 0.5 10*3/uL High 0.0-0.45 [facility] Comment on above: Performed By: #### C UU #### [address] Eosinophils/100 WBC (Bld) 5.0 % Normal . [facility] Comment on above: Performed By: #### C UU #### [address] Erythrocyte distribution width (RBC) [Ratio] 15.6 % High 11.9-15.3 [facility] Comment on above: Performed By: #### C UU #### [address] Hematocrit (Bld) [Volume fraction] 27.6 % Low 34.0-46.4 [facility] Comment on above: Performed By: #### C UU #### [address] Hemoglobin (Bld) [Mass/Vol] 9.4 g/dL Low 11.8-15.4 [facility] Comment on above: Performed By: #### C UU #### [address] Lymphocytes (Bld) [#/Vol] 0.7 10*3/uL Low 1.00-4.8 [facility] Comment on above: Performed By: #### C UU #### [address] Lymphocytes/100 WBC (Bld) 7.7 % Normal . [facility] Comment on above: Performed By: #### C UU #### [address] MCH (RBC) [Entitic mass] 29.5 pg Normal 24.7-34.3 [facility] Comment on above: Performed By: #### C UU #### [address] MCV (RBC) [Entitic vol] 86.8 fL Normal 80-100 [facility] Comment on above: Performed By: #### C UU #### [address] Mean Corpuscular HGB Conc 34.0 g/dL Normal 32.0-35.0 [facility] Comment on above: Performed By: #### C UU #### [address] Monocytes (Bld) [#/Vol] 0.9 10*3/uL High 0.0-0.8 [facility] Comment on above: Performed By: #### C UU #### [address] Monocytes/100 WBC (Bld) 9.8 % Normal . [facility] Comment on above: Performed By: #### C UU #### [address] Neutrophils (Bld) [#/Vol] 7.1 10*3/uL Normal 1.8-7.7 [facility] Comment on above: Performed By: #### C UU #### [address] Neutrophils/100 WBC (Bld) 77.1 % Normal . [facility] Comment on above: Performed By: #### C UU #### [address] NRBC% 0.0 /100{WBC} Normal 0-0.5 [facility] Comment on above: Performed By: #### C UU #### [address] Platelet mean volume (Bld) [Entitic vol] 7.9 fL Normal 6.3-10.[address] [facility] Comment on above: Performed By: #### C UU #### [address] Platelets (Bld) [#/Vol] 280 10*3/uL Normal 150-450 [facility] Comment on above: Performed By: #### C UU #### [address] RBC (Bld) [#/Vol] 3.18 10*6/uL Low 3.60-5.[address] [facility] Comment on above: Performed By: #### C UU #### [address] WBC (Bld) [#/Vol] 9.3 10*3/uL Normal 3.8-11.6 [facility] Comment on above: Performed By: #### C UU #### [place] [address] [place] Creatinine [Mass/volume] in Serum or PlasmaOrdered By: Dereje Gil on 05-05-2024 Creatinine [Mass/Vol] Creatinine [Mass/volume] in Serum or Plasma 0.60-1.20 [facility] Eosinophils Auto (Bld) [#/Vo l]Ordered By: Dereje Gil on 05-05-2024 Eosinophils (Bld) [#/Vol] Automated eosinophil count High 0.0-0.45 [facility] Eosinophils/100 WBC Auto (Bl d)Ordered By: Dereje Gil on 05-05-2024 Eosinophils/100 WBC (Bld) Automated eosinophil % . [facility] Erythrocyte distribution wid th Auto (RBC) [Ratio]Ordered By: Dereje Gil on 05-05-2024 Erythrocyte distribution width (RBC) [Ratio] Erythrocyte distribution width [Ratio] by Automated count High 11.9-15.3 [facility] Glucose [Mass/volume] in Ser um or PlasmaOrdered By: Dereje Gil on 05-05-2024 Glucose [Mass/Vol] Glucose [Mass/volume ] in Serum or Plasma 70-100 [facility] Comment on above: ADA recommended refe rence rangeRandom Glucose Reference Range is dependent on time and content of last meal. Glucose of more than 200 mg/dL in a nonstressed, ambulatory subject supports the diagnosis of Diabetes Mellitus. Hematocrit Auto (Bld) [Volum e fraction]Ordered By: Dereje Gil on 05-05-2024 Hematocrit (Bld) [Volume fraction] Hematocrit [Volume Fraction] of Blood by Automated count Low 34.0-46.4 [facility] Hemoglobin [Mass/volume] in BloodOrdered By: Dereje Gil on 05-05-2024 Hemoglobin (Bld) [Mass/Vol] Hemoglobin [Mass/volume] in Blood Low 11.8-15.4 [facility] Leukocytes [#/volume] correc kitty for nucleated erythrocytes in Blood by Automated counOrdered By: Dereje Gil on 05-05-2024 WBC corrected for nucl RBC Auto (Bld) [#/Vol] Leukocytes [#/volume] corrected for nucleated erythrocytes in Blood by Automated coun 3.8-11.6 [facility] Lymphocytes Auto (Bld) [#/Vo l]Ordered By: Dereje Gil on 05-05-2024 Lymphocytes (Bld) [#/Vol] Lymphocytes [#/volume] in Blood by Automated count Low 1.00-4.8 [facility] Lymphocytes/100 WBC Auto (Bl d)Ordered By: Dereje Gil on 05-05-2024 Lymphocytes/100 WBC (Bld) Lymphocytes/100 leukocytes in Blood by Automated count . [facility] MCH Auto (RBC) [Entitic mass ]Ordered By: Dereje Gil on 05-05-2024 MCH (RBC) [Entitic mass] MCH [Entitic mass] by Automated count 24.7-34.3 [facility] MCHC Auto (RBC) [Mass/Vol]Or dered By: Dereje Gil on 05-05-2024 MCHC (RBC) [Mass/Vol] MCHC [Mass/volume] by Automated count 32.0-35.0 [facility] MCV Auto (RBC) [Entitic vol] Ordered By: Dereje Gil on 05-05-2024 MCV (RBC) [Entitic vol] MCV [Entitic volume] by Automated count 80-100 [facility] Monocytes Auto (Bld) [#/Vol] Ordered By: Dereje Gil on 05-05-2024 Monocytes (Bld) [#/Vol] Automated blood monocyte count High 0.0-0.8 [facility] Monocytes/100 WBC Auto (Bld) Ordered By: Dereje Gil on 05-05-2024 Monocytes/100 WBC (Bld) Automated monocyte % . [facility] Neutrophils Auto (Bld) [#/Vo l]Ordered By: Dereje Gil on 05-05-2024 Neutrophils (Bld) [#/Vol] Neutrophils [#/volume] in Blood by Automated count 1.8-7.7 [facility] Neutrophils/100 WBC Auto (Bl d)Ordered By: Dereje Gil on 05-05-2024 Neutrophils/100 WBC (Bld) Automated neutrophil % . [facility] No Panel InformationOrdered By: Dereje Gil on 05-05-2024 Estimated GFR (CKD-EPI) 49.715 mL/Min [facility] Creatinine Clearance (Chem 39.69 [facility] Nucleated erythrocytes [Pres ence] in Blood by Automated countOrdered By: Dereje Gil on 05-05-2024 Nucleated RBC Auto Ql (Bld) Nucleated erythrocytes [Presence] in Blood by Automated count 0-0.5 [facility] Platelet mean volume Auto (B ld) [Entitic vol]Ordered By: Dereje Gil on 05-05-2024 Platelet mean volume (Bld) [Entitic vol] Platelet mean volume [Entitic volume] in Blood by Automated count 6.3-10.7 [facility] Platelets Auto (Bld) [#/Vol] Ordered By: Dereje Gil on 05-05-2024 Platelets (Bld) [#/Vol] Platelets [#/volume] in Blood by Automated count 150-450 [facility] Potassium [Moles/volume] in Serum or PlasmaOrdered By: Dereje Gil on 05-05-2024 Potassium [Moles/Vol] Potassium [Moles/volume] in Serum or Plasma 3.5-5.1 [facility] RBC Auto (Bld) [#/Vol]Ordere d By: Dereje Gil on 05-05-2024 RBC (Bld) [#/Vol] Erythrocytes [#/volu me] in Blood by Automated count Low 3.60-5.00 [facility] Serum or plasma anion gap de terminationOrdered By: Dereje iGl on 05-05-2024 Anion gap [Moles/Vol] Serum or plasma an ion gap determination 6.0-15.0 [facility] Sodium [Moles/volume] in Ser um or PlasmaOrdered By: Dereje Gil on 05-05-2024 Sodium [Moles/Vol] Sodium [Moles/volume ] in Serum or Plasma 136-145 [facility] Urea nitrogen [Mass/volume] in Serum or PlasmaOrdered By: Dereje Gil on 05-05-2024 Urea nitrogen [Mass/Vol] Urea nitrogen [Mass/volume] in Serum or Plasma 7-25 [facility] WBC Auto (Bld) [#/Vol]Ordere d By: Dereje Gil on 05-05-2024 WBC (Bld) [#/Vol] Leukocytes [#/volume ] in Blood by Automated count 3.8-11.6 [facility] Alanine aminotransferase [En zymatic activity/volume] in Serum or PlasmaOrdered By: Dereje Gil on 05-04-2024 ALT [Catalytic activity/Vol] Alanine aminotransferase [Enzymatic activity/volume] in Serum or Plasma 7-52 [facility] Albumin [Mass/volume] in Ser um or Plasma by Bromocresol green (BCG) dye binding methoOrdered By: Dereje Gil on 05-04-2024 Albumin BCG dye [Mass/Vol] Albumin [Mass/volume] in Serum or Plasma by Bromocresol green (BCG) dye binding metho Low 3.5-5.7 [facility] Alkaline phosphatase [Enzyma tic activity/volume] in Serum or PlasmaOrdered By: Dereje Gil on 05-04-2024 ALP [Catalytic activity/Vol] Alkaline phosphatase [Enzymatic activity/volume] in Serum or Plasma Low 34-104 [facility] Aspartate aminotransferase [ Enzymatic activity/volume] in Serum or PlasmaOrdered By: Dereje Gil on 05-04-2024 AST [Catalytic activity/Vol] Aspartate aminotransferase [Enzymatic activity/volume] in Serum or Plasma 13-39 [facility] Bilirubin.total [Mass/volume ] in Serum or PlasmaOrdered By: Dereje Gil on 05-04-2024 Bilirubin [Mass/Vol] Bilirubin.total [Mass/volume] in Serum or Plasma 0.3-1.0 [facility] Complete Blood Count Auto Di ffon 05-04-2024 Basophils (Bld) [#/Vol] 0.0 10*3/uL Normal 0.0-0.2 [facility] Comment on above: Result Comment: PERF ORMED BY: [address] [place] [address] PATHOLOGIST NUCLEAR ENGINEER DERREK HECK M.D. Performed By: #### S CAN CBC, BMP #### [facility] [address] [place] [address] [place] Basophils/100 WBC (Bld) 0.3 % Normal . [facility] Comment on above: Performed By: #### S CAN CBC, BMP #### [facility] [address] [place] [address] [place] Eosinophils (Bld) [#/Vol] 0.4 10*3/uL Normal 0.0-0.45 [facility] Comment on above: Performed By: #### S CAN CBC, BMP #### [address] Eosinophils/100 WBC (Bld) 4.2 % Normal . [facility] Comment on above: Performed By: #### S CAN CBC, BMP #### [address] Erythrocyte distribution width (RBC) [Ratio] 15.4 % High 11.9-15.3 [facility] Comment on above: Performed By: #### S CAN CBC, BMP #### [address] Hematocrit (Bld) [Volume fraction] 28.7 % Low 34.0-46.4 [facility] Comment on above: Performed By: #### S CAN CBC, BMP #### [address] Hemoglobin (Bld) [Mass/Vol] 9.7 g/dL Low 11.8-15.4 [facility] Comment on above: Performed By: #### S CAN CBC, BMP #### [address] Lymphocytes (Bld) [#/Vol] 1.0 10*3/uL Normal 1.00-4.8 [facility] Comment on above: Performed By: #### S CAN CBC, BMP #### [address] Lymphocytes/100 WBC (Bld) 9.7 % Normal . [facility] Comment on above: Performed By: #### S CAN CBC, BMP #### [address] MCH (RBC) [Entitic mass] 29.4 pg Normal 24.7-34.3 [facility] Comment on above: Performed By: #### S CAN CBC, BMP #### [address] MCV (RBC) [Entitic vol] 86.7 fL Normal 80-100 [facility] Comment on above: Performed By: #### S CAN CBC, BMP #### [facility] [address] Mean Corpuscular HGB Conc 33.9 g/dL Normal 32.0-35.0 [facility] Comment on above: Performed By: #### S CAN CBC, BMP #### [facility] [address] [place] [address] [place] Monocytes (Bld) [#/Vol] 1.0 10*3/uL High 0.0-0.8 [facility] Comment on above: Performed By: #### S CAN CBC, BMP #### [address] Monocytes/100 WBC (Bld) 9.9 % Normal . [facility] Comment on above: Performed By: #### S CAN CBC, BMP #### [facility] [address] [place] [address] Neutrophils (Bld) [#/Vol] 7.9 10*3/uL High 1.8-7.7 [facility] Comment on above: Performed By: #### S CAN CBC, BMP #### [place] [address] [place] Neutrophils/100 WBC (Bld) 75.9 % Normal . [facility] Comment on above: Performed By: #### S CAN CBC, BMP #### [facility] [address] [place] [address] [place] NRBC% 0.0 /100{WBC} Normal 0-0.5 [facility] Comment on above: Performed By: #### S CAN CBC, BMP #### [facility] [address] [place] [address] [place] Platelet mean volume (Bld) [Entitic vol] 7.6 fL Normal 6.3-10.[address] [facility] Comment on above: Performed By: #### S CAN CBC, BMP #### [facility] [address] [place] [address] [place] Platelets (Bld) [#/Vol] 305 10*3/uL Normal 150-450 [facility] Comment on above: Performed By: #### S CAN CBC, BMP #### [address] RBC (Bld) [#/Vol] 3.31 10*6/uL Low 3.60-5.[address] [facility] Comment on above: Performed By: #### S CAN CBC, BMP #### [address] WBC (Bld) [#/Vol] 10.4 10*3/uL Normal 3.8-11.[address] [facility] Comment on above: Performed By: #### S CAN CBC, BMP #### [address] Comprehensive Metabolic Pane lc 05-04-2024 Albumin [Mass/Vol] 2.8 g/dL Low 3.5-5.7 [facility] Comment on above: Performed By: #### S CAN CBC, BMP #### [address] Albumin/Globulin [Mass ratio] 1.3 {ratio} Normal [facility] Comment on above: Performed By: #### S CAN CBC, BMP #### [address] ALP [Catalytic activity/Vol] 17 U/L Low 34-104 [facility] Comment on above: Performed By: #### S CAN CBC, BMP #### [address] ALT [Catalytic activity/Vol] 9 U/L Normal 7-52 [facility] Comment on above: Performed By: #### S CAN CBC, BMP #### [address] Anion gap [Moles/Vol] 10.0 mmol/L Normal 6.0-15.0 [facility] Comment on above: Performed By: #### S CAN CBC, BMP #### [address] AST [Catalytic activity/Vol] 13 U/L Normal 13-39 [facility] Comment on above: Performed By: #### S CAN CBC, BMP #### [facility] [address] [place] [address] [place] Bilirubin [Mass/Vol] 0.7 mg/dL Normal 0.3-1.0 [facility] Comment on above: Performed By: #### S CAN CBC, BMP #### [facility] [address] [place] [address] [place] Calcium [Mass/Vol] 8.1 mg/dL Low 8.6-10.3 [facility] Comment on above: Performed By: #### S CAN CBC, BMP #### [facility] [address] [place] [address] [place] Chloride [Moles/Vol] 109 mmol/L High 98-107 [facility] Comment on above: Performed By: #### S CAN CBC, BMP #### [facility] [address] [place] [address] [place] CO2 [Moles/Vol] 24.4 mmol/L Normal 21.0-31.0 [facility] Comment on above: Performed By: #### S CAN CBC, BMP #### [facility] [address] [place] [address] [place] Creatinine [Mass/Vol] 1.00 mg/dL Normal 0.60-1.20 [facility] Comment on above: Performed By: #### S CAN CBC, BMP #### [facility] [address] [place] [address] [place] Creatinine Clr Calc Pharmacy 42.86 Normal [facility] Comment on above: Result Comment: PERF ORMED BY: [place] [address] PATHOLOGIST NUCLEAR ENGINEER DERREK HECK M.D. Performed By: #### S CAN CBC, BMP #### [address] Estimated GFR 54.525 mL/Min Normal [facility] Comment on above: Performed By: #### S CAN CBC, BMP #### [address] Globulin (S) [Mass/Vol] 2.2 g/dL Normal [facility] Comment on above: Performed By: #### S CAN CBC, BMP #### [address] Glucose [Mass/Vol] 85 mg/dL Normal 70-100 [facility] Comment on above: Result Comment: [facility] Glucose Reference Range is dependent on time and content of last meal. Glucose of more than 200 mg/dL in a nonstressed, ambulatory subject supports the diagnosis of Diabetes Mellitus. ADA recommended reference range Performed By: #### S CAN CBC, BMP #### [address] Potassium [Moles/Vol] 3.4 mmol/L Low 3.5-5.1 [facility] Comment on above: Performed By: #### S CAN CBC, BMP #### [address] Protein [Mass/Vol] 5.0 g/dL Low 6.4-8.9 [facility] Comment on above: Performed By: #### S CAN CBC, BMP #### [address] Sodium [Moles/Vol] 140 mmol/L Normal 136-145 [facility] Comment on above: Performed By: #### S CAN CBC, BMP #### [address] Urea nitrogen [Mass/Vol] 20 mg/dL Normal 7-25 [facility] Comment on above: Performed By: #### S CAN CBC, BMP #### [address] Globulin Calc (S) [Mass/Vol] Ordered By: Dereje Gil on 05-04-2024 Globulin (S) [Mass/Vol] Serum globulin measurement by calculation (mass/volume) [facility] Protein [Mass/volume] in Ser um or PlasmaOrdered By: Dereje Gil on 03-27-2025 Protein [Mass/Vol] Protein [Mass/volume ] in Serum or Plasma Low 6.4-8.9 [facility] Serum or plasma albumin/glob ulin mass ratioOrdered By: Dereje Gil on 05-04-2024 Albumin/Globulin [Mass ratio] Serum or plasma albumin/globulin mass ratio [facility] Complete Blood Count Auto Di ffon 05-03-2024 Basophils (Bld) [#/Vol] 0.0 10*3/uL Normal 0.0-0.2 [facility] Comment on above: Result Comment: PERF ORMED BY: [place] [address] PATHOLOGIST NUCLEAR ENGINEER DERREK HECK M.D. Performed By: #### S CAN CBC, BMP #### [address] Basophils/100 WBC (Bld) 0.1 % Normal . [facility] Comment on above: Performed By: #### S CAN CBC, BMP #### [place] [address] [place] Eosinophils (Bld) [#/Vol] 0.2 10*3/uL Normal 0.0-0.45 [facility] Comment on above: Performed By: #### S CAN CBC, BMP #### [address] Eosinophils/100 WBC (Bld) 2.0 % Normal . [facility] Comment on above: Performed By: #### S CAN CBC, BMP #### [address] Erythrocyte distribution width (RBC) [Ratio] 15.3 % Normal 11.9-15.3 [facility] Comment on above: Performed By: #### S CAN CBC, BMP #### [address] Hematocrit (Bld) [Volume fraction] 26.4 % Low 34.0-46.4 [facility] Comment on above: Performed By: #### S CAN CBC, BMP #### [address] [address] [place] Hemoglobin (Bld) [Mass/Vol] 8.9 g/dL Low 11.8-15.4 [facility] Comment on above: Performed By: #### S CAN CBC, BMP #### [address] Lymphocytes (Bld) [#/Vol] 0.6 10*3/uL Low 1.00-4.8 [facility] Comment on above: Performed By: #### S CAN CBC, BMP #### [address] Lymphocytes/100 WBC (Bld) 6.2 % Normal . [facility] Comment on above: Performed By: #### S CAN CBC, BMP #### [address] MCH (RBC) [Entitic mass] 29.5 pg Normal 24.7-34.3 [facility] Comment on above: Performed By: #### S CAN CBC, BMP #### [address] MCV (RBC) [Entitic vol] 87.4 fL Normal 80-100 [facility] Comment on above: Performed By: #### S CAN CBC, BMP #### [address] Mean Corpuscular HGB Conc 33.8 g/dL Normal 32.0-35.0 [facility] Comment on above: Performed By: #### S CAN CBC, BMP #### [place] [address] [place] Monocytes (Bld) [#/Vol] 1.0 10*3/uL High 0.0-0.8 [facility] Comment on above: Performed By: #### S CAN CBC, BMP #### [address] Monocytes/100 WBC (Bld) 10.2 % Normal . [facility] Comment on above: Performed By: #### S CAN CBC, BMP #### [address] [address] [place] Neutrophils (Bld) [#/Vol] 8.1 10*3/uL High 1.8-7.7 [facility] Comment on above: Performed By: #### S CAN CBC, BMP #### [address] Neutrophils/100 WBC (Bld) 81.5 % Normal . [facility] Comment on above: Performed By: #### S CAN CBC, BMP #### [address] NRBC% 0.0 /100{WBC} Normal 0-0.5 [facility] Comment on above: Performed By: #### S CAN CBC, BMP #### [address] Platelet mean volume (Bld) [Entitic vol] 7.7 fL Normal 6.3-10.[address] [facility] Comment on above: Performed By: #### S CAN CBC, BMP #### [place] [address] [place] Platelets (Bld) [#/Vol] 302 10*3/uL Normal 150-450 [facility] Comment on above: Performed By: #### S CAN CBC, BMP #### [address] RBC (Bld) [#/Vol] 3.02 10*6/uL Low 3.60-5.[address] [facility] Comment on above: Performed By: #### S CAN CBC, BMP #### [place] [address] [place] WBC (Bld) [#/Vol] 9.9 10*3/uL Normal 3.8-11.6 [facility] Comment on above: Performed By: #### S CAN CBC, BMP #### [address] Comprehensive Metabolic Pane lc 05-03-2024 Albumin [Mass/Vol] 2.7 g/dL Low 3.5-5.7 [facility] Comment on above: Performed By: #### S CAN CBC, BMP #### [address] Albumin/Globulin [Mass ratio] 1.4 {ratio} Normal [facility] Comment on above: Performed By: #### S CAN CBC, BMP #### [address] ALP [Catalytic activity/Vol] 15 U/L Low 34-104 [facility] Comment on above: Performed By: #### S CAN CBC, BMP #### [address] ALT [Catalytic activity/Vol] 9 U/L Normal 7-52 [facility] Comment on above: Performed By: #### S CAN CBC, BMP #### [address] Anion gap [Moles/Vol] 7.3 mmol/L Normal 6.0-15.0 [facility] Comment on above: Performed By: #### S CAN CBC, BMP #### [address] AST [Catalytic activity/Vol] 14 U/L Normal 13-39 [facility] Comment on above: Performed By: #### S CAN CBC, BMP #### [address] Bilirubin [Mass/Vol] 0.6 mg/dL Normal 0.3-1.0 [facility] Comment on above: Performed By: #### S CAN CBC, BMP #### [address] Calcium [Mass/Vol] 7.8 mg/dL Low 8.6-10.3 [facility] Comment on above: Performed By: #### S CAN CBC, BMP #### [place] [address] [place] Chloride [Moles/Vol] 111 mmol/L High 98-107 [facility] Comment on above: Performed By: #### S CAN CBC, BMP #### [address] [place] [address] [place] CO2 [Moles/Vol] 24.2 mmol/L Normal 21.0-31.0 [facility] Comment on above: Performed By: #### S CAN CBC, BMP #### [address] Creatinine [Mass/Vol] 1.08 mg/dL Normal 0.60-1.20 [facility] Comment on above: Performed By: #### S CAN CBC, BMP #### [address] Creatinine Clr Calc Pharmacy 39.69 Normal [facility] Comment on above: Result Comment: PERF ORMED BY: [place] [address] PATHOLOGIST NUCLEAR ENGINEER DERREK HECK M.D. Performed By: #### S CAN CBC, BMP #### [address] Estimated GFR 49.715 mL/Min Normal [facility] Comment on above: Performed By: #### S CAN CBC, BMP #### [address] Globulin (S) [Mass/Vol] 1.9 g/dL Normal [facility] Comment on above: Performed By: #### S CAN CBC, BMP #### [address] Glucose [Mass/Vol] 86 mg/dL Normal 70-100 [facility] Comment on above: Result Comment: [place] Glucose Reference Range is dependent on time and content of last meal. Glucose of more than 200 mg/dL in a nonstressed, ambulatory subject supports the diagnosis of Diabetes Mellitus. ADA recommended reference range Performed By: #### S CAN CBC, BMP #### [address] Potassium [Moles/Vol] 3.5 mmol/L Normal 3.5-5.1 [facility] Comment on above: Performed By: #### S CAN CBC, BMP #### [address] [place] [address] [place] Protein [Mass/Vol] 4.6 g/dL Low 6.4-8.9 [facility] Comment on above: Performed By: #### S CAN CBC, BMP #### [address] Sodium [Moles/Vol] 139 mmol/L Normal 136-145 [facility] Comment on above: Performed By: #### S CAN CBC, BMP #### [address] Urea nitrogen [Mass/Vol] 26 mg/dL High 7-25 [facility] Comment on above: Performed By: #### S CAN CBC, BMP #### [address] Complete Blood Count Auto Di ffon 05-02-2024 Basophils (Bld) [#/Vol] 0.0 10*3/uL Normal 0.0-0.2 [facility] Comment on above: Result Comment: PERF ORMED BY: [place] [address] PATHOLOGIST NUCLEAR ENGINEER DERREK HECK M.D. Performed By: #### S CAN CBC, BMP #### [address] Basophils/100 WBC (Bld) 0.1 % Normal . [facility] Comment on above: Performed By: #### S CAN CBC, BMP #### [address] Eosinophils (Bld) [#/Vol] 0.1 10*3/uL Normal 0.0-0.45 [facility] Comment on above: Performed By: #### S CAN CBC, BMP #### [address] Eosinophils/100 WBC (Bld) 1.2 % Normal . [facility] Comment on above: Performed By: #### S CAN CBC, BMP #### [address] Erythrocyte distribution width (RBC) [Ratio] 15.4 % High 11.9-15.3 [facility] Comment on above: Performed By: #### S CAN CBC, BMP #### [address] Hematocrit (Bld) [Volume fraction] 27.5 % Low 34.0-46.4 [facility] Comment on above: Performed By: #### S CAN CBC, BMP #### [address] Hemoglobin (Bld) [Mass/Vol] 9.3 g/dL Low 11.8-15.4 [facility] Comment on above: Performed By: #### S CAN CBC, BMP #### [address] Lymphocytes (Bld) [#/Vol] 0.6 10*3/uL Low 1.00-4.8 [facility] Comment on above: Performed By: #### S CAN CBC, BMP #### [address] Lymphocytes/100 WBC (Bld) 5.5 % Normal . [facility] Comment on above: Performed By: #### S CAN CBC, BMP #### [address] MCH (RBC) [Entitic mass] 30.0 pg Normal 24.7-34.3 [facility] Comment on above: Performed By: #### S CAN CBC, BMP #### [address] MCV (RBC) [Entitic vol] 88.1 fL Normal 80-100 [facility] Comment on above: Performed By: #### S CAN CBC, BMP #### [address] Mean Corpuscular HGB Conc 34.0 g/dL Normal 32.0-35.0 [facility] Comment on above: Performed By: #### S CAN CBC, BMP #### [address] Monocytes (Bld) [#/Vol] 1.0 10*3/uL High 0.0-0.8 [facility] Comment on above: Performed By: #### S CAN CBC, BMP #### [facility] [address] Monocytes/100 WBC (Bld) 8.8 % Normal . [facility] Comment on above: Performed By: #### S CAN CBC, BMP #### [facility] [address] Neutrophils (Bld) [#/Vol] 9.3 10*3/uL High 1.8-7.7 [facility] Comment on above: Performed By: #### S CAN CBC, BMP #### [address] Neutrophils/100 WBC (Bld) 84.4 % Normal . [facility] Comment on above: Performed By: #### S CAN CBC, BMP #### [facility] [address] NRBC% 0.0 /100{WBC} Normal 0-0.5 [facility] Comment on above: Performed By: #### S CAN CBC, BMP #### [address] Platelet mean volume (Bld) [Entitic vol] 7.7 fL Normal 6.3-10.[address] [facility] Comment on above: Performed By: #### S CAN CBC, BMP #### [facility] [address] Platelets (Bld) [#/Vol] 289 10*3/uL Normal 150-450 [facility] Comment on above: Performed By: #### S CAN CBC, BMP #### [facility] [address] [place] [address] [place] RBC (Bld) [#/Vol] 3.12 10*6/uL Low 3.60-5.[address] [facility] Comment on above: Performed By: #### S CAN CBC, BMP #### [facility] [address] WBC (Bld) [#/Vol] 11.0 10*3/uL Normal 3.8-11.6 [facility] Comment on above: Performed By: #### S CAN CBC, BMP #### [address] Comprehensive Metabolic Pane lc 05-02-2024 Albumin [Mass/Vol] 2.8 g/dL Low 3.5-5.7 [facility] Comment on above: Performed By: #### C UU #### [address] Albumin/Globulin [Mass ratio] 1.4 {ratio} Normal [facility] Comment on above: Performed By: #### C UU #### [address] ALP [Catalytic activity/Vol] 15 U/L Low 34-104 [facility] Comment on above: Performed By: #### C UU #### [address] ALT [Catalytic activity/Vol] 9 U/L Normal 7-52 [facility] Comment on above: Performed By: #### C UU #### [address] Anion gap [Moles/Vol] 11.8 mmol/L Normal 6.0-15.0 [facility] Comment on above: Performed By: #### C UU #### [address] AST [Catalytic activity/Vol] 15 U/L Normal 13-39 [facility] Comment on above: Performed By: #### C UU #### [address] Bilirubin [Mass/Vol] 0.5 mg/dL Normal 0.3-1.0 [facility] Comment on above: Performed By: #### C UU #### [address] Calcium [Mass/Vol] 8.0 mg/dL Low 8.6-10.3 [facility] Comment on above: Performed By: #### C UU #### [address] Chloride [Moles/Vol] 107 mmol/L Normal 98-107 [facility] Comment on above: Performed By: #### C UU #### [address] CO2 [Moles/Vol] 21.0 mmol/L Normal 21.0-31.0 [facility] Comment on above: Performed By: #### C UU #### [address] Creatinine [Mass/Vol] 1.27 mg/dL High 0.60-1.20 [facility] Comment on above: Performed By: #### C UU #### [address] Creatinine Clr Calc Pharmacy 33.75 Normal [facility] Comment on above: Result Comment: PERF ORMED BY: [place] [address] PATHOLOGIST NUCLEAR ENGINEER DERREK HECK M.D. Performed By: #### C UU #### [address] Estimated GFR 40.930 mL/Min Normal [facility] Comment on above: Performed By: #### C UU #### [address] Globulin (S) [Mass/Vol] 2.0 g/dL Normal [facility] Comment on above: Performed By: #### C UU #### [address] Glucose [Mass/Vol] 68 mg/dL Low 70-100 [facility] Comment on above: Result Comment: [place] om Glucose Reference Range is dependent on time and content of last meal. Glucose of more than 200 mg/dL in a nonstressed, ambulatory subject supports the diagnosis of Diabetes Mellitus. ADA recommended reference range Performed By: #### C UU #### [facility] [address] Potassium [Moles/Vol] 3.8 mmol/L Normal 3.5-5.1 [facility] Comment on above: Performed By: #### C UU #### [facility] [address] Protein [Mass/Vol] 4.8 g/dL Low 6.4-8.9 [facility] Comment on above: Performed By: #### C UU #### [address] Sodium [Moles/Vol] 136 mmol/L Normal 136-145 [facility] Comment on above: Performed By: #### C UU #### [address] Urea nitrogen [Mass/Vol] 35 mg/dL High 7-25 [facility] Comment on above: Performed By: #### C UU #### [address] Glucose Glucometer (BldC) [M ass/Vol]Ordered By: Dereje Gil on 05-02-2024 Glucose [Mass/Vol] Capillary blood gluc ose measurement by glucometer (mass/volume) [facility] Comment on above: Random Glucose Refer ence Range is dependent on time and content of last meal. Glucose of more than 200 mg/dL in a nonstressed, ambulatory subject supports the diagnosis of Diabetes Mellitus. Glucose Poct Glucometerson 0 05-02-2024 Glucose [Mass/Vol] 71 mg/dL Normal [facility] Comment on above: Result Comment: [place] om Glucose Reference Range is dependent on time and content of last meal. Glucose of more than 200 mg/dL in a nonstressed, ambulatory subject supports the diagnosis of Diabetes Mellitus. PERFORMED BY: [place] [address] PATHOLOGIST NUCLEAR ENGINEER DERREK HECK M.D. Performed By: #### C UU #### [address] Pathology study report docum entOrdered By: Gerardo Bonilla on 05-02-2024 Pathology study [facility] Other Basic Metabolic Panelon 04-09 Anion gap [Moles/Vol] 7.8 mmol/L Normal 6.0-15.0 [facility] Comment on above: Performed By: #### C UU #### [address] Calcium [Mass/Vol] 7.8 mg/dL Low 8.6-10.3 [facility] Comment on above: Performed By: #### C UU #### [address] Chloride [Moles/Vol] 112 mmol/L High 98-107 [facility] Comment on above: Performed By: #### C UU #### [address] CO2 [Moles/Vol] 23.5 mmol/L Normal 21.0-31.0 [facility] Comment on above: Performed By: #### C UU #### [address] Creatinine [Mass/Vol] 1.53 mg/dL High 0.60-1.20 [facility] Comment on above: Performed By: #### C UU #### [address] Creatinine Clr Calc Pharmacy 28.01 Normal [facility] Comment on above: Result Comment: PERF ORMED BY: [place] [address] PATHOLOGIST NUCLEAR ENGINEER DERREK HECK M.D. Performed By: #### C UU #### [address] Estimated GFR 32.732 mL/Min Normal [facility] Comment on above: Performed By: #### C UU #### [address] Glucose [Mass/Vol] 76 mg/dL Normal 70-100 [facility] Comment on above: Result Comment: [place] Glucose Reference Range is dependent on time and content of last meal. Glucose of more than 200 mg/dL in a nonstressed, ambulatory subject supports the diagnosis of Diabetes Mellitus. ADA recommended reference range Performed By: #### C UU #### [address] Potassium [Moles/Vol] 4.3 mmol/L Normal 3.5-5.1 [facility] Comment on above: Performed By: #### C UU #### [address] Sodium [Moles/Vol] 139 mmol/L Normal 136-145 [facility] Comment on above: Performed By: #### C UU #### [address] Urea nitrogen [Mass/Vol] 40 mg/dL High 7-25 [facility] Comment on above: Performed By: #### C UU #### [address] Complete Blood Count Auto Di ffon 05-01-2024 Basophils (Bld) [#/Vol] 0.0 10*3/uL Normal 0.0-0.2 [facility] Comment on above: Result Comment: PERF ORMED BY: [place] [address] PATHOLOGIST NUCLEAR ENGINEER DERREK HECK M.D. Performed By: #### C UU #### [place] [address] [place] Basophils/100 WBC (Bld) 0.2 % Normal . [facility] Comment on above: Performed By: #### C UU #### [address] Eosinophils (Bld) [#/Vol] 0.0 10*3/uL Normal 0.0-0.45 [facility] Comment on above: Performed By: #### C UU #### [address] Eosinophils/100 WBC (Bld) 0.4 % Normal . [facility] Comment on above: Performed By: #### C UU #### [address] Erythrocyte distribution width (RBC) [Ratio] 15.7 % High 11.9-15.3 [facility] Comment on above: Performed By: #### C UU #### [address] Hematocrit (Bld) [Volume fraction] 27.5 % Low 34.0-46.4 [facility] Comment on above: Performed By: #### C UU #### [address] Hemoglobin (Bld) [Mass/Vol] 9.2 g/dL Low 11.8-15.4 [facility] Comment on above: Performed By: #### C UU #### [address] Lymphocytes (Bld) [#/Vol] 0.8 10*3/uL Low 1.00-4.8 [facility] Comment on above: Performed By: #### C UU #### [address] Lymphocytes/100 WBC (Bld) 6.9 % Normal . [facility] Comment on above: Performed By: #### C UU #### [address] MCH (RBC) [Entitic mass] 29.4 pg Normal 24.7-34.3 [facility] Comment on above: Performed By: #### C UU #### [address] MCV (RBC) [Entitic vol] 88.1 fL Normal 80-100 [facility] Comment on above: Performed By: #### C UU #### [address] Mean Corpuscular HGB Conc 33.4 g/dL Normal 32.0-35.0 [facility] Comment on above: Performed By: #### C UU #### [address] Monocytes (Bld) [#/Vol] 1.2 10*3/uL High 0.0-0.8 [facility] Comment on above: Performed By: #### C UU #### [address] Monocytes/100 WBC (Bld) 10.6 % Normal . [facility] Comment on above: Performed By: #### C UU #### [address] Neutrophils (Bld) [#/Vol] 9.0 10*3/uL High 1.8-7.7 [facility] Comment on above: Performed By: #### C UU #### [address] Neutrophils/100 WBC (Bld) 81.9 % Normal . [facility] Comment on above: Performed By: #### C UU #### [address] NRBC% 0.0 /100{WBC} Normal 0-0.5 [facility] Comment on above: Performed By: #### C UU #### [address] Platelet mean volume (Bld) [Entitic vol] 7.2 fL Normal 6.3-10.[address] [facility] Comment on above: Performed By: #### C UU #### [place] [address] [place] Platelets (Bld) [#/Vol] 294 10*3/uL Normal 150-450 [facility] Comment on above: Performed By: #### C UU #### [place] [address] [place] RBC (Bld) [#/Vol] 3.13 10*6/uL Low 3.60-5.[address] [facility] Comment on above: Performed By: #### C UU #### [address] WBC (Bld) [#/Vol] 10.9 10*3/uL Normal 3.8-11.[address] [facility] Comment on above: Performed By: #### C UU #### [address] Lactate [Moles/volume] in Se rum or PlasmaOrdered By: Tyrese Girard on 05-01-2024 Lactate [Moles/Vol] Lactate [Moles/volum e] in Serum or Plasma 0.5-1.9 [facility] Comment on above: Lactic Acid referenc e range has been updated to 0.5 1.9 mmol/L and the critical range of 2.0 or greater. Lactic Acidon 05-01-2024 Lactate [Moles/Vol] 0.5 mmol/L Normal 0.5-1.[address] [facility] Comment on above: Result Comment: Lact ic Acid reference range has been updated to 0.5 ? 1.9 mmol/L and the critical range of 2.0 or greater. PERFORMED BY: [place] [address] PATHOLOGIST NUCLEAR ENGINEER DERREK HECK M.D. Performed By: #### C UU #### [address] Basic Metabolic Panelon 04-09 Anion gap [Moles/Vol] 11.3 mmol/L Normal 6.0-15.0 [facility] Comment on above: Performed By: #### B MP, CBC #### [address] Calcium [Mass/Vol] 8.2 mg/dL Low 8.6-10.3 [facility] Comment on above: Performed By: #### B MP, CBC #### [address] Chloride [Moles/Vol] 108 mmol/L High 98-107 [facility] Comment on above: Performed By: #### B MP, CBC #### [address] CO2 [Moles/Vol] 22.5 mmol/L Normal 21.0-31.0 [facility] Comment on above: Performed By: #### B MP, CBC #### [address] Creatinine [Mass/Vol] 1.66 mg/dL High 0.60-1.20 [facility] Comment on above: Performed By: #### B MP, CBC #### [address] Creatinine Clr Calc Pharmacy 25.82 Normal [facility] Comment on above: Result Comment: PERF ORMED BY: [place] [address] PATHOLOGIST NUCLEAR ENGINEER DERREK HECK M.D. Performed By: #### B MP, CBC #### [address] Estimated GFR 29.680 mL/Min Normal [facility] Comment on above: Performed By: #### B MP, CBC #### [address] Glucose [Mass/Vol] 104 mg/dL High 70-100 [facility] Comment on above: Result Comment: [place] Glucose Reference Range is dependent on time and content of last meal. Glucose of more than 200 mg/dL in a nonstressed, ambulatory subject supports the diagnosis of Diabetes Mellitus. ADA recommended reference range Performed By: #### B MP, CBC #### [address] Potassium [Moles/Vol] 4.8 mmol/L Normal 3.5-5.1 [facility] Comment on above: Performed By: #### B MP, CBC #### [place] [address] [place] Sodium [Moles/Vol] 137 mmol/L Normal 136-145 [facility] Comment on above: Performed By: #### B MP, CBC #### [address] Urea nitrogen [Mass/Vol] 47 mg/dL High 7-25 [facility] Comment on above: Performed By: #### B MP, CBC #### [address] Complete Blood Count Auto Di ffon 04-30-2024 Basophils (Bld) [#/Vol] 0.0 10*3/uL Normal 0.0-0.2 [facility] Comment on above: Result Comment: PERF ORMED BY: [place] [address] PATHOLOGIST NUCLEAR ENGINEER DERREK HECK M.D. Performed By: #### B MP, CBC #### [address] Basophils/100 WBC (Bld) 0.0 % Normal . [facility] Comment on above: Performed By: #### B MP, CBC #### [address] Eosinophils (Bld) [#/Vol] 0.0 10*3/uL Normal 0.0-0.45 [facility] Comment on above: Performed By: #### B MP, CBC #### [address] Eosinophils/100 WBC (Bld) 0.0 % Normal . [facility] Comment on above: Performed By: #### B MP, CBC #### [address] Erythrocyte distribution width (RBC) [Ratio] 15.4 % High 11.9-15.3 [facility] Comment on above: Performed By: #### B MP, CBC #### [address] Hematocrit (Bld) [Volume fraction] 31.9 % Low 34.0-46.4 [facility] Comment on above: Performed By: #### B MP, CBC #### [facility] [address] Hemoglobin (Bld) [Mass/Vol] 10.6 g/dL Low 11.8-15.4 [facility] Comment on above: Performed By: #### B MP, CBC #### [facility] [address] Lymphocytes (Bld) [#/Vol] 0.3 10*3/uL Low 1.00-4.8 [facility] Comment on above: Performed By: #### B MP, CBC #### [address] Lymphocytes/100 WBC (Bld) 2.4 % Normal . [facility] Comment on above: Performed By: #### B MP, CBC #### [address] MCH (RBC) [Entitic mass] 29.2 pg Normal 24.7-34.3 [facility] Comment on above: Performed By: #### B MP, CBC #### [address] MCV (RBC) [Entitic vol] 87.7 fL Normal 80-100 [facility] Comment on above: Performed By: #### B MP, CBC #### [address] Mean Corpuscular HGB Conc 33.3 g/dL Normal 32.0-35.0 [facility] Comment on above: Performed By: #### B MP, CBC #### [facility] [address] Monocytes (Bld) [#/Vol] 1.3 10*3/uL High 0.0-0.8 [facility] Comment on above: Performed By: #### B MP, CBC #### [address] Monocytes/100 WBC (Bld) 10.1 % Normal . [facility] Comment on above: Performed By: #### B MP, CBC #### [facility] [address] [place] [address] [place] Neutrophils (Bld) [#/Vol] 11.3 10*3/uL High 1.8-7.7 [facility] Comment on above: Performed By: #### B MP, CBC #### [facility] [address] [place] [id number] [place] Neutrophils/100 WBC (Bld) 87.5 % Normal . [facility] Comment on above: Performed By: #### B MP, CBC #### [facility] [address] [place] [address] [place] NRBC% 0.0 /100{WBC} Normal 0-0.5 [facility] Comment on above: Performed By: #### B MP, CBC #### [facility] [address] [place] [address] [place] Platelet mean volume (Bld) [Entitic vol] 7.3 fL Normal 6.3-10.[address] [facility] Comment on above: Performed By: #### B MP, CBC #### [facility] [address] [place] [address] [place] Platelets (Bld) [#/Vol] 401 10*3/uL Normal 150-450 [facility] Comment on above: Performed By: #### B MP, CBC #### [facility] [address] [place] [id number] [place] RBC (Bld) [#/Vol] 3.64 10*6/uL Normal 3.60-5.[address] [facility] Comment on above: Performed By: #### B MP, CBC #### [facility] [address] [place] [address] [place] WBC (Bld) [#/Vol] 13.0 10*3/uL High 3.8-11.[address] [facility] Comment on above: Performed By: #### B MP, CBC #### [facility] [address] [place] [address] [place] Acanthocytes [Presence] in B lood by Light microscopyOrdered By: Hortensia Owen on 04-29-2024 Acanthocytes LM Ql (Bld) Acanthocytes [Presence] in Blood by Light microscopy [facility] Aerobic Cultureon 04-29-2024 Aerobic Culture SAMPLE SUBMITTED ON CULTURE SWAB No Growth 2 Days SAMPLE SUBMITTED ON CULTURE SWAB No Anaerobes Isolated 3 Days SAMPLE SUBMITTED ON CULTURE SWAB Gram Stain Result Rare White Blood Cells No Epithelial Cells Seen No Bacteria Seen PERFORMED BY: [place] [address] PATHOLOGIST NUCLEAR ENGINEER DERREK HECK M.D. Normal [facility] Comment on above: Performed By: #### C UU #### [address] Aerobic cultureOrdered By: Lavonne Girard on 04-29-2024 Bacteria identified Aer cx Nom (Unsp spec) Aerobic culture [facility] Anaerobic cultureOrdered By: Tyrese Girard on 04-29-2024 Bacteria identified Anaer cx Nom (Unsp spec) Anaerobic culture [facility] Anisocytosis LM Ql (Bld)Orde red By: Hortensia Owen on 04-29-2024 Anisocytosis Ql (Bld) Anisocytosis [Pres ence] in Blood by Light microscopy [facility] Basic Metabolic Panelon 04-09 Anion gap [Moles/Vol] 12.6 mmol/L Normal 6.0-15.0 [facility] Comment on above: Performed By: #### S CAN CBC, BMP #### [place] [address] [place] Calcium [Mass/Vol] 8.8 mg/dL Normal 8.6-10.3 [facility] Comment on above: Performed By: #### S CAN CBC, BMP #### [facility] [address] [place] [address] [place] Chloride [Moles/Vol] 102 mmol/L Normal 98-107 [facility] Comment on above: Performed By: #### S CAN CBC, BMP #### [facility] [address] [place] [address] [place] CO2 [Moles/Vol] 22.9 mmol/L Normal 21.0-31.0 [facility] Comment on above: Performed By: #### S CAN CBC, BMP #### [facility] [address] Creatinine [Mass/Vol] 1.93 mg/dL High 0.60-1.20 [facility] Comment on above: Performed By: #### S CAN CBC, BMP #### [place] [address] [place] Creatinine Clr Calc Pharmacy 22.21 Normal [facility] Comment on above: Result Comment: PERF ORMED BY: [place] [address] PATHOLOGIST NUCLEAR ENGINEER DERREK HECK M.D. Performed By: #### S CAN CBC, BMP #### [address] Estimated GFR 24.770 mL/Min Normal [facility] Comment on above: Performed By: #### S CAN CBC, BMP #### [address] Glucose [Mass/Vol] 121 mg/dL High 70-100 [facility] Comment on above: Result Comment: [place] Glucose Reference Range is dependent on time and content of last meal. Glucose of more than 200 mg/dL in a nonstressed, ambulatory subject supports the diagnosis of Diabetes Mellitus. ADA recommended reference range Performed By: #### S CAN CBC, BMP #### [address] Potassium [Moles/Vol] 4.5 mmol/L Normal 3.5-5.1 [facility] Comment on above: Performed By: #### S CAN CBC, BMP #### [facility] [address] [place] [address] [place] Sodium [Moles/Vol] 133 mmol/L Low 136-145 [facility] Comment on above: Performed By: #### S CAN CBC, BMP #### [place] [address] [place] Urea nitrogen [Mass/Vol] 50 mg/dL High 7-25 [facility] Comment on above: Performed By: #### S CAN CBC, BMP #### [address] Erythrocyte morphology findi ng [Identifier] in BloodOrdered By: Hortensia Owen on 04-29-2024 RBC morphology finding Nom (Bld) RBC morphology [facility] Glucose Poct Glucometerson 0 04-29-2024 Glucose [Mass/Vol] 107 mg/dL Normal [facility] Comment on above: Result Comment: [facility] Glucose Reference Range is dependent on time and content of last meal. Glucose of more than 200 mg/dL in a nonstressed, ambulatory subject supports the diagnosis of Diabetes Mellitus. PERFORMED BY: [place] [address] PATHOLOGIST NUCLEAR ENGINEER DERREK HECK M.D. Performed By: #### C UU #### [address] Gram Stainon 04-29-2024 Microscopic observation Gram stain Nom (Unsp spec) SAMPLE SUBMITTED ON CULTURE SWAB Gram Stain Result Rare White Blood Cells No Epithelial Cells Seen No Bacteria Seen PERFORMED BY: [place] [address] PATHOLOGIST NUCLEAR ENGINEER DERREK HECK M.D. Normal [facility] Comment on above: Performed By: #### C UU #### [place] [id number] [facility] Gram stain microscopyOrdered By: Tyrese Girard on 04-29-2024 Microscopic observation Gram stain Nom (Unsp spec) Gram stain microscopy [facility] L[facility] 04-29-2024 L --- Specimen: [id number] Received: 05/01/24 Status: LEAH Sandersraquel Num: [id number] Spec Type: Surgical Subm Dr: Tyrese Girard MD Tissues: A Soft Tissue - Debridement/Lipoma (PELVIC ADHESION BAND) B Small Intestine-Resection other than for tumor (SMALL BOWEL) C Hernia Sac (UMBILICAL HERNIA) Procedures: HE/7, Gross/Micro L5, Gross/Micro L3, Gross/Micro L2 Age/ Patient Sex Location Account Attending Physician KinSage Evangelista [id number] Dereje Gil MD SPEC NUM: [id number] RECD: 05/01/24 STATUS: LEAH SANDERSRaquel NUM: [id number] IRMA: 04/29/24-[address]: Tyrese Girard MD ENTERED: 05/01/[address] [facility] [address]: SPEC TYPE: Surgical DEPT: S ENTERED BY: [id number] RECV BY: [id number] ORDERED: /7, Gross/Micro L5, Gross/Micro L3, Gross/Micro L2 ORDERED: HE/, Gross/Micro L5, Gross/Micro L3, Gross/Micro L2 Pathological Diagnosis A, pelvic adhesion band, biopsy: -Mild nonspecific fibrosis adhesion of the peritoneal mesothelial membrane with the associated wrapping of the attached adipose soft tissue -No tumor, secondary infection, or any other atypical changes observed B, small bowel, segmental resection: -Marked acute ischemic enteritis (most compatible with venous type), demonstrating markedly associated stromal hemorrhage in the mucosa and submucosa, and the examined mesenteric adipose soft tissue -Viable proximal margin without acute inflammation -Viable distal margin without acute inflammation, but still with focal congestion and hemorrhage -No evidence of malignancy, intussusception, chronic inflammatory bowel disease, or any other neoplasm or other specific type lesion identified C, soft tissue, umbilical region, repair excision -Severely incarcerated herniorrhaphy mesh tissue element with markedly associated congestions in the attached soft tissue portion without secondary infection Specimen: [id number] Received: 05/01/24 Status: SEANBrina Ramey Num: [id number] Spec Type: Surgical Subm Dr: Tyrese Girard MD Tissues: A Soft Tissue - Debridement/Lipoma (PELVIC ADHESION BAND) B Small Intestine-Resection other than for tumor (SMALL BOWEL) C Hernia Sac (UMBILICAL HERNIA) Procedures: HE/7, Gross/Micro L5, Gross/Micro L3, Gross/Micro L2 Patient: Sage Hsu [id number] (Continued) Specimen: [id number] Received: 05/01/24 (Continued) Signed (signature on file) Gerardo Bonilla MD 05/02/24 1526 Specimen: [id number] Received: 05/01/24 Status: LEAH Ramey Num: [id number] Spec Type: Surgical Subm Dr: Tyrese Girard MD Tissues: A Soft Tissue - Debridement/Lipoma (PELVIC ADHESION BAND) B Small Intestine-Resection other than for tumor (SMALL BOWEL) C Hernia Sac (UMBILICAL HERNIA) Procedures: JARRED/Indra, Gross/Micro L5, Gross/Micro L3, Gross/Micro L2 Patient: Sage Hsu [id number] (Continued) Specimen: [id number] Received: 05/01/24 (Continued) Clinical Information Small bowel obstruction Gross Description Part A is received in formalin labeled with the patients name, date of , and pelvic adhesion band is a cylindrical segment of pickett-pink, fibromembranous tissue, 8 cm in length by 0.8 cm in diameter. Serial sections reveal pickett-pink to yellow, glistening and uniform cut surfaces. Occupational Therapy Asst sections are submitted in a single cassette. (1, ss, [id number]) JG Part B is received in formalin labeled with the patients name, date of , and small bowel is a small bowel segment, 68.5 cm in length with an internal circumference that ranges from 5 to 7.5 cm. The specimen is received stapled along the margins, and resected with mesenteric adipose tissue, up to 2 cm in thickness. One of the stapled margins displays a black suture, identified by the surgeon as the distal margin. The margins display pickett-pink and glistening serosa for a length of at least 2 cm, while the remainder of the small bowel is somewhat dusky. The specimen is opened to reveal pickett-pink and glistening mucosa wi (more content not included)... Normal [facility] Microcytes LM Ql (Bld)Ordere d By: Hortensia Owen on 04-29-2024 Microcytes Ql (Bld) Microcytes [Presence ] in Blood by Light microscopy [facility] Ovalocytes [Presence] in Blo od by Light microscopyOrdered By: Hortensia Owen on 04-29-2024 Ovalocytes LM Ql (Bld) Ovalocyte detection [facility] Platelet adequacy [Presence] in Blood by Light microscopyOrdered By: Hortensia Owen on 04-29-2024 Platelets LM Ql (Bld) Platelet adequacy [Presence] in Blood by Light microscopy Normal [facility] Platelet morphology finding [Identifier] in BloodOrdered By: Hortensia wOen on 04-29-2024 Platelet morphology finding Nom (Bld) Platelet morphology finding [Identifier] in Blood Normal [facility] Poikilocytosis [Presence] in Blood by Light microscopyOrdered By: Hortensia Owen on 04-29-2024 Poikilocytosis LM Ql (Bld) Poikilocytosis [Presence] in Blood by Light microscopy [facility] Scan and CBCon 04-29-2024 Acanthocytes Slight Normal [facility] Comment on above: Performed By: #### S CAN CBC, BMP #### [facility] [address] Anisocytosis Ql (Bld) Slight Normal [facility] Comment on above: Performed By: #### S CAN CBC, BMP #### [facility] [address] [place] [address] [place] Basophils (Bld) [#/Vol] 0.1 10*3/uL Normal 0.0-0.2 [facility] Comment on above: Performed By: #### S CAN CBC, BMP #### [facility] [address] [place] [address] [place] Basophils/100 WBC (Bld) 0.4 % Normal . [facility] Comment on above: Performed By: #### S CAN CBC, BMP #### [facility] [address] [place] [address] [place] Eosinophils (Bld) [#/Vol] 0.0 10*3/uL Normal 0.0-0.45 [facility] Comment on above: Performed By: #### S CAN CBC, BMP #### [facility] [address] [place] [address] [place] Eosinophils/100 WBC (Bld) 0.0 % Normal . [facility] Comment on above: Performed By: #### S CAN CBC, BMP #### [facility] [address] [place] [address] [place] Erythrocyte distribution width (RBC) [Ratio] 15.3 % Normal 11.9-15.3 [facility] Comment on above: Performed By: #### S CAN CBC, BMP #### [facility] [address] Hematocrit (Bld) [Volume fraction] 33.3 % Low 34.0-46.4 [facility] Comment on above: Performed By: #### S CAN CBC, BMP #### [facility] [address] Hemoglobin (Bld) [Mass/Vol] 11.4 g/dL Low 11.8-15.4 [facility] Comment on above: Performed By: #### S CAN CBC, BMP #### [facility] [address] Lymphocytes (Bld) [#/Vol] 0.3 10*3/uL Low 1.00-4.8 [facility] Comment on above: Performed By: #### S CAN CBC, BMP #### [address] Lymphocytes/100 WBC (Bld) 1.7 % Normal . [facility] Comment on above: Performed By: #### S CAN CBC, BMP #### [address] MCH (RBC) [Entitic mass] 29.5 pg Normal 24.7-34.3 [facility] Comment on above: Performed By: #### S CAN CBC, BMP #### [address] MCV (RBC) [Entitic vol] 86.5 fL Normal 80-100 [facility] Comment on above: Performed By: #### S CAN CBC, BMP #### [address] Mean Corpuscular HGB Conc 34.1 g/dL Normal 32.0-35.0 [facility] Comment on above: Performed By: #### S CAN CBC, BMP #### [address] Microcytosis Slight Normal [facility] Comment on above: Performed By: #### S CAN CBC, BMP #### [address] Monocytes (Bld) [#/Vol] 1.6 10*3/uL High 0.0-0.8 [facility] Comment on above: Performed By: #### S CAN CBC, BMP #### [facility] [address] Monocytes/100 WBC (Bld) 8.7 % Normal . [facility] Comment on above: Performed By: #### S CAN CBC, BMP #### [facility] [address] Neutrophils (Bld) [#/Vol] 16.5 10*3/uL High 1.8-7.7 [facility] Comment on above: Performed By: #### S CAN CBC, BMP #### [address] Neutrophils/100 WBC (Bld) 89.2 % Normal . [facility] Comment on above: Performed By: #### S CAN CBC, BMP #### [address] NRBC% 0.1 /100{WBC} Normal 0-0.5 [facility] Comment on above: Performed By: #### S CAN CBC, BMP #### [address] Ovalocytes Slight Normal [facility] Comment on above: Performed By: #### S CAN CBC, BMP #### [address] Platelet Estimate Increased Normal Normal [facility] Comment on above: Performed By: #### S CAN CBC, BMP #### [place] [address] [place] Platelet mean volume (Bld) [Entitic vol] 7.2 fL Normal 6.3-10.[address] [facility] Comment on above: Performed By: #### S CAN CBC, BMP #### [address] Platelet Morphology Normal Normal Normal [facility] Comment on above: Result Comment: PERF ORMED BY: [place] [address] PATHOLOGIST NUCLEAR ENGINEER DERREK HECK M.D. Performed By: #### S CAN CBC, BMP #### [facility] [address] [place] [address] [place] Platelets (Bld) [#/Vol] 590 10*3/uL High 150-450 [facility] Comment on above: Performed By: #### S CAN CBC, BMP #### [address] Poikilocytosis Slight Normal [facility] Comment on above: Performed By: #### S CAN CBC, BMP #### [facility] [address] [place] [address] [place] RBC (Bld) [#/Vol] 3.85 10*6/uL Normal 3.60-5.[address] [facility] Comment on above: Performed By: #### S CAN CBC, BMP #### [place] [address] [place] WBC (Bld) [#/Vol] 18.6 10*3/uL High 3.8-11.[address] [facility] Comment on above: Performed By: #### S CAN CBC, BMP #### [address] X-ray reportOrdered By: Michael Chavez on 04-29-2024 Study report [facility] [place] [address] [place] [address] XRay Report Signed Patient: Sage Hsu MR#: [id number] : 1935 Acct:[id number] Age/Sex: 88 / F ADM Date: 5 Loc: Room: 5R2472-4 Type: ADM IN Attending Dr: Hortensia Owen MD Copies to: Hortensia Owen MD~ Ordering Provider: Hortensia Owen MD Date of Service: 04/29/24 XR/XR abdomen min 2V: sbo ABDOMEN 2 VIEWS: CLINICAL INFORMATION: Abdominal pain, constipation, distention COMPARISON: CT abdomen and pelvis 04/28/2024, abdominal x-ray 04/28/2024 FINDINGS: Persistent dilated bowel loops appearing slightly progressed.. Colonic interposition overlying the liver shadow. No free air is seen. Vascular calcifications. Post cholecystectomy clips. Osseous structures demonstrate degenerative change with partially visualized left GAYLA. XR/XR abdomen min 2V IMPRESSION: PROGRESSION OF THE DILATED BOWEL LOOPS WORRISOME FOR SBO Impression dictated by: Anibal Chavez M.D.04/29/2024 9:13 AM Dictation Location: RADIO-PC-29 Transcribed By: IZABELA 04/29/24912 Dictated By: Anibal Chavez MD 04/29/24909 Signed By: 04/29/24912 [facility] Work Phone: XR abdomen min 2Von 04-30-19 25 XR abdomen min 2V [facility] [place] [address] XRay Report Signed Patient: Sage Hsu MR#: [id number] 4 : 1935 Acct:[id number] Age/Sex: 88 / F ADM Date: 04/28/24 Loc: N Room: [address] [place] [address] Type: ADM IN Attending Dr: Hortensia Owen MD Copies to: Hortensia Owen MD Ordering Provider: Hortensia Owen MD Date of Service: 04/29/24 XR/XR abdomen min 2V: sbo ABDOMEN 2 VIEWS: CLINICAL INFORMATION: Abdominal pain, constipation, distention COMPARISON: CT abdomen and pelvis 04/28/2024, abdominal x-ray 04/28/2024 FINDINGS: Persistent dilated bowel loops appearing slightly progressed.. Colonic interposition overlying the liver shadow. No free air is seen. Vascular calcifications. Post cholecystectomy clips. Osseous structures demonstrate degenerative change with partially visualized left GAYLA. XR/XR abdomen min 2V IMPRESSION: PROGRESSION OF THE DILATED BOWEL LOOPS WORRISOME FOR SBO Impression dictated by: Anibal Chavez M.D.04/29/2024 9:13 AM Dictation Location: RADIO-PC-29 Transcribed By: IZABELA 04/29/24912 Dictated By: Anibal Chavez MD 04/29/24909 Signed By: 04/29/24912 Normal [facility] Basophils Auto (Bld) [#/Vol] on 04-28-2024 Basophils (Bld) [#/Vol] Automated basophil count 0.0-0.1 [facility] Basophils/100 WBC Auto (Bld) on 04-28-2024 Basophils/100 WBC (Bld) Automated basophil % Low 0.2-2.0 [facility] Blood Cultureon 04-28-2024 Bacteria identified Cx Nom (Bld) XRAY AND EKG AHEAD OF US NO GROWTH 5 DAYS PERFORMED BY: [place] [address] PATHOLOGIST NUCLEAR ENGINEER DERREK HECK M.D. Normal [facility] Comment on above: Performed By: #### C UBLD #### [address] Bacteria identified Cx Nom (Bld) XRAY AND EKG AHEAD OF US NO GROWTH 5 DAYS PERFORMED BY: [place] [address] PATHOLOGIST NUCLEAR ENGINEER DERREK HECK M.D. Normal [facility] Comment on above: Performed By: #### C UBLD #### [address] Complete Blood Count Auto Di ffon 04-28-2024 Basophils (Bld) [#/Vol] 0.0 10*3/uL Normal 0.0-0.2 [facility] Comment on above: Order Comment: XRAY AND EKG AHEAD OF US Result Comment: PERF ORMED BY: [place] [address] PATHOLOGIST NUCLEAR ENGINEER DERREK HECK M.D. Performed By: #### L ACTIC, CBC, CMP, MG #### [address] Basophils/100 WBC (Bld) 0.2 % Normal . [facility] Comment on above: Order Comment: XRAY AND EKG AHEAD OF US Performed By: #### L ACTIC, CBC, CMP, MG #### [address] [place] [address] [place] Eosinophils (Bld) [#/Vol] 0.0 10*3/uL Normal 0.0-0.45 [facility] Comment on above: Order Comment: XRAY AND EKG AHEAD OF US Performed By: #### L ACTIC, CBC, CMP, MG #### [address] Eosinophils/100 WBC (Bld) 0.0 % Normal . [facility] Comment on above: Order Comment: XRAY AND EKG AHEAD OF US Performed By: #### L ACTIC, CBC, CMP, MG #### [address] Erythrocyte distribution width (RBC) [Ratio] 15.2 % Normal 11.9-15.3 [facility] Comment on above: Order Comment: XRAY AND EKG AHEAD OF US Performed By: #### L ACTIC, CBC, CMP, MG #### [address] Hematocrit (Bld) [Volume fraction] 34.1 % Normal 34.0-46.4 [facility] Comment on above: Order Comment: XRAY AND EKG AHEAD OF US Performed By: #### L ACTIC, CBC, CMP, MG #### [address] Hemoglobin (Bld) [Mass/Vol] 11.4 g/dL Low 11.8-15.4 [facility] Comment on above: Order Comment: XRAY AND EKG AHEAD OF US Performed By: #### L ACTIC, CBC, CMP, MG #### [address] Lymphocytes (Bld) [#/Vol] 0.3 10*3/uL Low 1.00-4.8 [facility] Comment on above: Order Comment: XRAY AND EKG AHEAD OF US Performed By: #### L ACTIC, CBC, CMP, MG #### [place] [address] [place] Lymphocytes/100 WBC (Bld) 1.9 % Normal . [facility] Comment on above: Order Comment: XRAY AND EKG AHEAD OF US Performed By: #### L ACTIC, CBC, CMP, MG #### [address] MCH (RBC) [Entitic mass] 29.1 pg Normal 24.7-34.3 [facility] Comment on above: Order Comment: XRAY AND EKG AHEAD OF US Performed By: #### L ACTIC, CBC, CMP, MG #### [address] MCV (RBC) [Entitic vol] 87.5 fL Normal 80-100 [facility] Comment on above: Order Comment: XRAY AND EKG AHEAD OF US Performed By: #### L ACTIC, CBC, CMP, MG #### [address] Mean Corpuscular HGB Conc 33.3 g/dL Normal 32.0-35.0 [facility] Comment on above: Order Comment: XRAY AND EKG AHEAD OF US Performed By: #### L ACTIC, CBC, CMP, MG #### [address] Monocytes (Bld) [#/Vol] 0.7 10*3/uL Normal 0.0-0.8 [facility] Comment on above: Order Comment: XRAY AND EKG AHEAD OF US Performed By: #### L ACTIC, CBC, CMP, MG #### [address] Monocytes/100 WBC (Bld) 4.2 % Normal . [facility] Comment on above: Order Comment: XRAY AND EKG AHEAD OF US Performed By: #### L ACTIC, CBC, CMP, MG #### [address] Neutrophils (Bld) [#/Vol] 14.9 10*3/uL High 1.8-7.7 [facility] Comment on above: Order Comment: XRAY AND EKG AHEAD OF US Performed By: #### L ACTIC, CBC, CMP, MG #### [address] Neutrophils/100 WBC (Bld) 93.7 % Normal . [facility] Comment on above: Order Comment: XRAY AND EKG AHEAD OF US Performed By: #### L ACTIC, CBC, CMP, MG #### [address] NRBC% 0.1 /100{WBC} Normal 0-0.5 [facility] Comment on above: Order Comment: XRAY AND EKG AHEAD OF US Performed By: #### L ACTIC, CBC, CMP, MG #### [address] Platelet mean volume (Bld) [Entitic vol] 7.0 fL Normal 6.3-10.[address] [facility] Comment on above: Order Comment: XRAY AND EKG AHEAD OF US Performed By: #### L ACTIC, CBC, CMP, MG #### [address] Platelets (Bld) [#/Vol] 486 10*3/uL High 150-450 [facility] Comment on above: Order Comment: XRAY AND EKG AHEAD OF US Performed By: #### L ACTIC, CBC, CMP, MG #### [address] RBC (Bld) [#/Vol] 3.90 10*6/uL Normal 3.60-5.[address] [facility] Comment on above: Order Comment: XRAY AND EKG AHEAD OF US Performed By: #### L ACTIC, CBC, CMP, MG #### [address] WBC (Bld) [#/Vol] 15.8 10*3/uL High 3.8-11.[address] [facility] Comment on above: Order Comment: XRAY AND EKG AHEAD OF US Performed By: #### L ACTIC, CBC, CMP, MG #### [address] Comprehensive Metabolic Pane lc 04-28-2024 Albumin [Mass/Vol] 3.6 g/dL Normal 3.5-5.7 [facility] Comment on above: Order Comment: XRAY AND EKG AHEAD OF US Performed By: #### S CAN CBC, BMP #### [address] Albumin/Globulin [Mass ratio] 1.2 {ratio} Normal [facility] Comment on above: Order Comment: XRAY AND EKG AHEAD OF US Performed By: #### S CAN CBC, BMP #### [address] ALP [Catalytic activity/Vol] 23 U/L Low 34-104 [facility] Comment on above: Order Comment: XRAY AND EKG AHEAD OF US Performed By: #### S CAN CBC, BMP #### [address] ALT [Catalytic activity/Vol] 11 U/L Normal 7-52 [facility] Comment on above: Order Comment: XRAY AND EKG AHEAD OF US Performed By: #### S CAN CBC, BMP #### [address] Anion gap [Moles/Vol] 13.5 mmol/L Normal 6.0-15.0 [facility] Comment on above: Order Comment: XRAY AND EKG AHEAD OF US Performed By: #### S CAN CBC, BMP #### [address] AST [Catalytic activity/Vol] 20 U/L Normal 13-39 [facility] Comment on above: Order Comment: XRAY AND EKG AHEAD OF US Performed By: #### S CAN CBC, BMP #### [place] [address] [place] Bilirubin [Mass/Vol] 0.5 mg/dL Normal 0.3-1.0 [facility] Comment on above: Order Comment: XRAY AND EKG AHEAD OF US Performed By: #### S CAN CBC, BMP #### [place] [address] [place] Calcium [Mass/Vol] 9.3 mg/dL Normal 8.6-10.3 [facility] Comment on above: Order Comment: XRAY AND EKG AHEAD OF US Performed By: #### S CAN CBC, BMP #### [facility] [address] Chloride [Moles/Vol] 100 mmol/L Normal 98-107 [facility] Comment on above: Order Comment: XRAY AND EKG AHEAD OF US Performed By: #### S CAN CBC, BMP #### [facility] [address] CO2 [Moles/Vol] 23.4 mmol/L Normal 21.0-31.0 [facility] Comment on above: Order Comment: XRAY AND EKG AHEAD OF US Performed By: #### S CAN CBC, BMP #### [facility] [address] Creatinine [Mass/Vol] 2.05 mg/dL High 0.60-1.20 [facility] Comment on above: Order Comment: XRAY AND EKG AHEAD OF US Performed By: #### S CAN CBC, BMP #### [facility] [address] Estimated GFR 23.041 mL/Min Normal [facility] Comment on above: Order Comment: XRAY AND EKG AHEAD OF US Performed By: #### S CAN CBC, BMP #### [facility] [address] [place] [address] [place] Globulin (S) [Mass/Vol] 3.0 g/dL Normal [facility] Comment on above: Order Comment: XRAY AND EKG AHEAD OF US Performed By: #### S CAN CBC, BMP #### [facility] [address] [place] [address] [place] Glucose [Mass/Vol] 134 mg/dL High 70-100 [facility] Comment on above: Order Comment: XRAY AND EKG AHEAD OF US Result Comment: [facility] Glucose Reference Range is dependent on time and content of last meal. Glucose of more than 200 mg/dL in a nonstressed, ambulatory subject supports the diagnosis of Diabetes Mellitus. ADA recommended reference range Performed By: #### S CAN CBC, BMP #### [facility] [address] Potassium [Moles/Vol] 4.9 mmol/L Normal 3.5-5.1 [facility] Comment on above: Order Comment: XRAY AND EKG AHEAD OF US Performed By: #### S CAN CBC, BMP #### [facility] [address] [place] [id number] [place] Protein [Mass/Vol] 6.6 g/dL Normal 6.4-8.9 [facility] Comment on above: Order Comment: XRAY AND EKG AHEAD OF US Performed By: #### S CAN CBC, BMP #### [address] Sodium [Moles/Vol] 132 mmol/L Low 136-145 [facility] Comment on above: Order Comment: XRAY AND EKG AHEAD OF US Performed By: #### S CAN CBC, BMP #### [place] [id number] [facility] Urea nitrogen [Mass/Vol] 46 mg/dL High 7-25 [facility] Comment on above: Order Comment: XRAY AND EKG AHEAD OF US Performed By: #### S CAN CBC, BMP #### [place] [id number] [facility] ECG 12 lead ECGon 04-28-2024 ECG 12 lead ECG [facility] [place] [address] [place] [address] Electrocardiograph Report Signed Patient: Sage Hsu MR#: [id number] 4 : 1935 Acct:[id number] Age/Sex: 88 / F ADM Date: 04/28/24 Loc: Room: 8L4433-7 Type: ADM IN Attending Dr: Hortensia Owen MD Ordering Provider: Hortensia Owen MD Date of Service: 04/28/24 ECG/ECG 12 lead ECG: new admit Copies to: Test Reason : Blood Pressure : */* mmHG Vent. Rate : 58 BPM Atrial Rate : 58 BPM P-R Int : 198 ms QRS Dur : 150 ms QT Int : 460 ms P-R-T Axes : 87 -69 47 degrees QTcB Int : 451 ms Sinus bradycardia Left axis deviation Right bundle branch block Minimal voltage criteria for LVH, may be normal variant ( R in aVL ) Abnormal ECG Confirmed by DI SWEENEY MD ([id number]) on 04/28/2024 3:23:13 PM Referred By: Electronically Signed By: DI SWEENEY MD Transcribed By: MUS Signed By Di Sweeney MD 0 04/28/24 1523 Normal [facility] Eosinophils/100 WBC Auto (Bl d)on 04-28-2024 Eosinophils/100 WBC (Bld) Automated eosinophil % Low 0.9-7.0 [facility] Erythrocyte distribution wid th Auto (RBC) [Ratio]on 04-28-2024 Erythrocyte distribution width (RBC) [Ratio] Erythrocyte distribution width [Ratio] by Automated count 11.0-15.0 [facility] Estimated glomerular filtrat ion rate (GFR) non- Americanon 04-28-2024 GFR/1.73 sq M.predicted among non-blacks MDRD (S/P/Bld) [Vol rate/Area] Estimated glomerular filtration rate (GFR) non- Low >=60 mL/min/1.7 3m 2 [facility] Globulin Calc (S) [Mass/Vol] on 04-28-2024 Globulin (S) [Mass/Vol] Serum globulin measurement by calculation (mass/volume) [facility] Hematocrit Auto (Bld) [Volum e fraction]on 04-28-2024 Hematocrit (Bld) [Volume fraction] Hematocrit [Volume Fraction] of Blood by Automated count Low 36.0-48.0 [facility] Hemoglobin [Mass/volume] in Bloodon 04-28-2024 Hemoglobin (Bld) [Mass/Vol] Hemoglobin [Mass/volume] in Blood Low 12.0-16.0 [facility] Laboratory - Chemistry and C hemistry - challengeon 04-28-2024 Lactate [Moles/Vol] 2.0 mmol/L 0.4-2.0 [facility] Albumin [Mass/Vol] 3.2 g/dL Low 3.4-5.0 [facility] ALP [Catalytic activity/Vol] 32 U/L Low 46-116 [facility] ALT [Catalytic activity/Vol] 18 U/L 14-59 [facility] AST [Catalytic activity/Vol] 23 U/L 15-37 [facility] Bilirubin [Mass/Vol] 0.4 mg/dL 0.2-1.0 [facility] Calcium [Mass/Vol] 9.2 mg/dL 8.5-10.1 [facility] Chloride [Moles/Vol] 99 mmol/L 98-107 [facility] CO2 [Moles/Vol] 21.1 mmol/L 21.0-32.0 [facility] Creatinine [Mass/Vol] 2.33 mg/dL High 0.55-1.02 [facility] GFR/1.73 sq M.predicted MDRD (S/P/Bld) [Vol rate/Area] 24 mL/min/{1.73_m2} Low >=60 mL/min/1.7 3m 2 [facility] Glucose [Mass/Vol] 149 mg/dL High 74-106 [facility] Potassium [Moles/Vol] 4.9 mmol/L 3.5-5.1 [facility] Protein [Mass/Vol] 6.8 g/dL 6.4-8.2 [facility] Sodium [Moles/Vol] 131 mmol/L Low 136-145 [facility] Urea nitrogen [Mass/Vol] 45.0 mg/dL High 7.0-18.0 [facility] Urea nitrogen/Creatinine [Mass ratio] 19.3 mg/mg [facility] Laboratory - Hematology and Cell countson 04-28-2024 Immature granulocytes/100 WBC (Bld) 1.1 % High 0.0-0.5 [facility] Laboratory - Microbiology an d Antimicrobial susceptibilityOrdered By: Hortensia Owen on 04-28-2024 Bacteria identified Cx Nom (Bld) NO GROWTH 5 DAYS [facility] Bacteria identified Cx Nom (Bld) NO GROWTH 5 DAYS [facility] Lactic Acidon 04-28-2024 Lactate [Moles/Vol] 1.2 mmol/L Normal 0.5-1.[address] [facility] Comment on above: Order Comment: XRAY AND EKG AHEAD OF US Result Comment: Lact ic Acid reference range has been updated to 0.5 ? 1.9 mmol/L and the critical range of 2.0 or greater. PERFORMED BY: [place] [address] PATHOLOGIST NUCLEAR ENGINEER DERREK HECK M.D. Performed By: #### L ACTIC, CBC, CMP, MG #### [facility] [address] Leukocytes [#/volume] correc kitty for nucleated erythrocytes in Blood by Automated counon 04-28-2024 WBC corrected for nucl RBC Auto (Bld) [#/Vol] Leukocytes [#/volume] corrected for nucleated erythrocytes in Blood by Automated coun High 4.0-11.0 [facility] Lymphocytes Auto (Bld) [#/Vo l]on 04-28-2024 Lymphocytes (Bld) [#/Vol] Lymphocytes [#/volume] in Blood by Automated count Low 1.2-3.8 [facility] Lymphocytes/100 WBC Auto (Bl d)on 04-28-2024 Lymphocytes/100 WBC (Bld) Lymphocytes/100 leukocytes in Blood by Automated count Low 20.5-60.0 [facility] MCH Auto (RBC) [Entitic mass ]on 04-28-2024 MCH (RBC) [Entitic mass] MCH [Entitic mass] by Automated count 26.7-34.0 [facility] MCHC Auto (RBC) [Mass/Vol]on 04-28-2024 MCHC (RBC) [Mass/Vol] MCHC [Mass/volume] by Automated count 29.9-35.2 [facility] MCV Auto (RBC) [Entitic vol] on 04-28-2024 MCV (RBC) [Entitic vol] MCV [Entitic volume] by Automated count 81.0-99.0 [facility] Magnesiumon 04-28-2024 Magnesium [Mass/Vol] 2.0 mg/dL Normal 1.9-2.7 [facility] Comment on above: Order Comment: XRAY AND EKG AHEAD OF US Result Comment: PERF ORMED BY: [facility] [address] [place] [address] PATHOLOGIST NUCLEAR ENGINEER DERREK HECK M.D. Performed By: #### S CAN CBC, BMP #### [facility] [address] Magnesium [Mass/volume] in S isabel or PlasmaOrdered By: Hortensia Owen on 04-28-2024 Magnesium [Mass/Vol] Magnesium [Mass/vol ume] in Serum or Plasma 1.9-2.7 [facility] Monocytes Auto (Bld) [#/Vol] on 04-28-2024 Monocytes (Bld) [#/Vol] Automated blood monocyte count 0.3-0.8 [facility] Monocytes/100 WBC Auto (Bld) on 04-28-2024 Monocytes/100 WBC (Bld) Automated monocyte % 1.7-12.0 [facility] Neutrophils Auto (Bld) [#/Vo l]on 04-28-2024 Neutrophils (Bld) [#/Vol] Neutrophils [#/volume] in Blood by Automated count High 1.4-6.5 [facility] Neutrophils/100 WBC Auto (Bl d)on 04-28-2024 Neutrophils/100 WBC (Bld) Automated neutrophil % High 43.0-75.0 [facility] No Panel Informationon 04-28 Eosinophils # (Auto) 0.0 10 3/uL 0.0-0.7 [facility] Immature Granulocyte # (Auto) 0.24 10 3/uL High 0.00-0.03 [facility] Platelet mean volume Auto (B ld) [Entitic vol]on 04-28-2024 Platelet mean volume (Bld) [Entitic vol] Platelet mean volume [Entitic volume] in Blood by Automated count Low 9.5-13.5 [facility] Platelets Auto (Bld) [#/Vol] on 04-28-2024 Platelets (Bld) [#/Vol] Platelets [#/volume] in Blood by Automated count High 150-450 [facility] RBC Auto (Bld) [#/Vol]on RBC (Bld) [#/Vol] Erythrocytes [#/volu me] in Blood by Automated count Low 4.20-5.40 [facility] Serum or plasma albumin/glob ulin mass ratioon 04-28-2024 Albumin/Globulin [Mass ratio] Serum or plasma albumin/globulin mass ratio [facility] Serum or plasma anion gap de terminationon 04-28-2024 Anion gap [Moles/Vol] Serum or plasma an ion gap determination [facility] X-ray reportOrdered By: Benigno Yen on 04-28-2024 Study report [facility] [place] [address] XRay Report Signed Patient: Sage Hsu MR#: [id number] : 1935 Acct:[id number] Age/Sex: 88 / F ADM Date: 5 Loc: 4N Room: [address] [place] [address] Type: ADM IN Attending Dr: Hortensia Owen MD Copies to: Hortensia Owen MD~ Ordering Provider: Hortensia Owen MD Date of Service: 04/28/24 XR/XR abdomen min 2V: abd pain ABDOMEN 2 VIEWS: CLINICAL INFORMATION: Abdominal pain diarrhea constipation nausea vomiting. Right-sided abdominal pain. COMPARISON: CT abdomen and pelvis 04/28/2024 FINDINGS: There appears to be dilated bowel loops present. No free air is seen. Vascular calcifications. Post cholecystectomy clips. Osseous structures demonstrate degenerative change with partially visualized left GAYLA. XR/XR abdomen min 2V IMPRESSION: DILATED BOWEL LOOPS ARE PRESENT. DEVELOPING SBO CANNOT BE EXCLUDED. Impression dictated by: Jm Yen Jr., D.ORylee04/28/2024 2:26 PM Dictation Location: [place] [address] Transcribed By: [facility] 04/28/24 142 Dictated By: Jm Yen Jr, DO 04/28/24 1424 Signed By: 04/28/24 1426 [facility] XR abdomen min 2Von 04-29-19 XR abdomen min 2V [facility] [address] [address] XRay Report Signed Patient: Sage sHu MR#: [id number] : 1935 Acct:[id number] Age/Sex: 88 / F ADM Date: 04/28/24 Loc: 4N Room: 3L6590-7 Type: ADM IN Attending Dr: Hortensia Owen MD Copies to: Hortensia Owen MD Ordering Provider: Hortensia Owen MD Date of Service: 04/28/24 XR/XR abdomen min 2V: abd pain ABDOMEN 2 VIEWS: CLINICAL INFORMATION: Abdominal pain diarrhea constipation nausea vomiting. Right-sided abdominal pain. COMPARISON: CT abdomen and pelvis 04/28/2024 FINDINGS: There appears to be dilated bowel loops present. No free air is seen. Vascular calcifications. Post cholecystectomy clips. Osseous structures demonstrate degenerative change with partially visualized left GAYLA. XR/XR abdomen min 2V IMPRESSION: DILATED BOWEL LOOPS ARE PRESENT. DEVELOPING SBO CANNOT BE EXCLUDED. Impression dictated by: Jm Yen Jr., D.O.04/28/2024 2:26 PM Dictation Location: [place] [address] Transcribed By: [facility] 04/28/24 1426 Dictated By: Jm Yen Jr, DO 04/28/24 1424 Signed By: 04/28/24 1426 Normal [facility] Basophils Auto (Bld) [#/Vol] on 04-27-2024 Basophils (Bld) [#/Vol] Automated basophil count 0.0-0.1 [facility] Basophils/100 WBC Auto (Bld) on 04-27-2024 Basophils/100 WBC (Bld) Automated basophil % Low 0.2-2.0 [facility] Eosinophils/100 WBC Auto (Bl d)on 04-27-2024 Eosinophils/100 WBC (Bld) Automated eosinophil % Low 0.9-7.0 [facility] Erythrocyte distribution wid th Auto (RBC) [Ratio]on 04-27-2024 Erythrocyte distribution width (RBC) [Ratio] Erythrocyte distribution width [Ratio] by Automated count 11.0-15.0 [facility] Estimated glomerular filtrat ion rate (GFR) non- Americanon 04-27-2024 GFR/1.73 sq M.predicted among non-blacks MDRD (S/P/Bld) [Vol rate/Area] Estimated glomerular filtration rate (GFR) non- Low >=60 mL/min/1.7 3m 2 [facility] Globulin Calc (S) [Mass/Vol] on 04-27-2024 Globulin (S) [Mass/Vol] Serum globulin measurement by calculation (mass/volume) [facility] Hematocrit Auto (Bld) [Volum e fraction]on 04-27-2024 Hematocrit (Bld) [Volume fraction] Hematocrit [Volume Fraction] of Blood by Automated count Low 36.0-48.0 [facility] Hemoglobin [Mass/volume] in Bloodon 04-27-2024 Hemoglobin (Bld) [Mass/Vol] Hemoglobin [Mass/volume] in Blood Low 12.0-16.0 [facility] Laboratory - Chemistry and C hemistry - challengeon 04-27-2024 Albumin [Mass/Vol] 2.9 g/dL Low 3.4-5.0 [facility] ALP [Catalytic activity/Vol] 29 U/L Low 46-116 [facility] ALT [Catalytic activity/Vol] 18 U/L 14-59 [facility] AST [Catalytic activity/Vol] 18 U/L 15-37 [facility] Bilirubin [Mass/Vol] 0.6 mg/dL 0.2-1.0 [facility] Calcium [Mass/Vol] 9.2 mg/dL 8.5-10.1 [facility] Chloride [Moles/Vol] 96 mmol/L Low 98-107 [facility] CO2 [Moles/Vol] 22.3 mmol/L 21.0-32.0 [facility] Creatinine [Mass/Vol] 2.36 mg/dL High 0.55-1.02 [facility] GFR/1.73 sq M.predicted MDRD (S/P/Bld) [Vol rate/Area] 24 mL/min/{1.73_m2} Low >=60 mL/min/1.7 3m 2 [facility] Glucose [Mass/Vol] 158 mg/dL High 74-106 [facility] Magnesium [Mass/Vol] 1.6 mg/dL Low 1.8-2.4 [facility] Potassium [Moles/Vol] 5.2 mmol/L High 3.5-5.1 [facility] Protein [Mass/Vol] 6.5 g/dL 6.4-8.2 [facility] Sodium [Moles/Vol] 129 mmol/L Low 136-145 [facility] Urea nitrogen [Mass/Vol] 33.0 mg/dL High 7.0-18.0 [facility] Urea nitrogen/Creatinine [Mass ratio] 14.0 mg/mg [facility] Laboratory - Hematology and Cell countson 04-27-2024 Immature granulocytes/100 WBC (Bld) 0.3 % 0.0-0.5 [facility] Leukocytes [#/volume] correc kitty for nucleated erythrocytes in Blood by Automated counon 04-27-2024 WBC corrected for nucl RBC Auto (Bld) [#/Vol] Leukocytes [#/volume] corrected for nucleated erythrocytes in Blood by Automated coun 4.0-11.0 [facility] Lymphocytes Auto (Bld) [#/Vo l]on 04-27-2024 Lymphocytes (Bld) [#/Vol] Lymphocytes [#/volume] in Blood by Automated count Low 1.2-3.8 [facility] Lymphocytes/100 WBC Auto (Bl d)on 04-27-2024 Lymphocytes/100 WBC (Bld) Lymphocytes/100 leukocytes in Blood by Automated count Low 20.5-60.0 [facility] MCH Auto (RBC) [Entitic mass ]on 04-27-2024 MCH (RBC) [Entitic mass] MCH [Entitic mass] by Automated count 26.7-34.0 [facility] MCHC Auto (RBC) [Mass/Vol]on 04-27-2024 MCHC (RBC) [Mass/Vol] MCHC [Mass/volume] by Automated count 29.9-35.2 [facility] MCV Auto (RBC) [Entitic vol] on 04-27-2024 MCV (RBC) [Entitic vol] MCV [Entitic volume] by Automated count 81.0-99.0 [facility] Monocytes Auto (Bld) [#/Vol] on 04-27-2024 Monocytes (Bld) [#/Vol] Automated blood monocyte count Low 0.3-0.8 [facility] Monocytes/100 WBC Auto (Bld) on 04-27-2024 Monocytes/100 WBC (Bld) Automated monocyte % Low 1.7-12.0 [facility] Neutrophils Auto (Bld) [#/Vo l]on 04-27-2024 Neutrophils (Bld) [#/Vol] Neutrophils [#/volume] in Blood by Automated count High 1.4-6.5 [facility] Neutrophils/100 WBC Auto (Bl d)on 04-27-2024 Neutrophils/100 WBC (Bld) Automated neutrophil % High 43.0-75.0 [facility] No Panel Informationon 04-27 Eosinophils # (Auto) 0.0 10 3/uL 0.0-0.7 [facility] Immature Granulocyte # (Auto) 0.03 10 3/uL 0.00-0.03 [facility] Platelet mean volume Auto (B ld) [Entitic vol]on 04-27-2024 Platelet mean volume (Bld) [Entitic vol] Platelet mean volume [Entitic volume] in Blood by Automated count 9.5-13.5 [facility] Platelets Auto (Bld) [#/Vol] on 04-27-2024 Platelets (Bld) [#/Vol] Platelets [#/volume] in Blood by Automated count 150-450 [facility] RBC Auto (Bld) [#/Vol]on RBC (Bld) [#/Vol] Erythrocytes [#/volu me] in Blood by Automated count Low 4.20-5.40 [facility] Serum or plasma albumin/glob ulin mass ratioon 04-27-2024 Albumin/Globulin [Mass ratio] Serum or plasma albumin/globulin mass ratio [facility] Serum or plasma anion gap de terminationon 04-27-2024 Anion gap [Moles/Vol] Serum or plasma an ion gap determination [facility] Basophils Auto (Bld) [#/Vol] on 04-26-2024 Basophils (Bld) [#/Vol] Automated basophil count 0.0-0.1 [facility] Basophils/100 WBC Auto (Bld) on 04-26-2024 Basophils/100 WBC (Bld) Automated basophil % 0.2-2.0 [facility] Eosinophils/100 WBC Auto (Bl d)on 04-26-2024 Eosinophils/100 WBC (Bld) Automated eosinophil % Low 0.9-7.0 [facility] Erythrocyte distribution wid th Auto (RBC) [Ratio]on 04-26-2024 Erythrocyte distribution width (RBC) [Ratio] Erythrocyte distribution width [Ratio] by Automated count 11.0-15.0 [facility] Estimated glomerular filtrat ion rate (GFR) non- Americanon 04-26-2024 GFR/1.73 sq M.predicted among non-blacks MDRD (S/P/Bld) [Vol rate/Area] Estimated glomerular filtration rate (GFR) non- Low >=60 mL/min/1.7 3m 2 [facility] Globulin Calc (S) [Mass/Vol] on 04-26-2024 Globulin (S) [Mass/Vol] Serum globulin measurement by calculation (mass/volume) [facility] Hematocrit Auto (Bld) [Volum e fraction]on 04-26-2024 Hematocrit (Bld) [Volume fraction] Hematocrit [Volume Fraction] of Blood by Automated count 36.0-48.0 [facility] Hemoglobin [Mass/volume] in Bloodon 04-26-2024 Hemoglobin (Bld) [Mass/Vol] Hemoglobin [Mass/volume] in Blood 12.0-16.0 [facility] Laboratory - Chemistry and C hemistry - challengeon 04-26-2024 Albumin [Mass/Vol] 3.0 g/dL Low 3.4-5.0 [facility] ALP [Catalytic activity/Vol] 36 U/L Low 46-116 [facility] ALT [Catalytic activity/Vol] 10 U/L Low 14-59 [facility] AST [Catalytic activity/Vol] 21 U/L 15-37 [facility] Bilirubin [Mass/Vol] 0.8 mg/dL 0.2-1.0 [facility] Calcium [Mass/Vol] 9.4 mg/dL 8.5-10.1 [facility] Chloride [Moles/Vol] 99 mmol/L 98-107 [facility] CO2 [Moles/Vol] 27.9 mmol/L 21.0-32.0 [facility] Creatinine [Mass/Vol] 1.78 mg/dL High 0.55-1.02 [facility] GFR/1.73 sq M.predicted MDRD (S/P/Bld) [Vol rate/Area] 33 mL/min/{1.73_m2} Low >=60 mL/min/1.7 3m 2 [facility] Glucose [Mass/Vol] 115 mg/dL High 74-106 [facility] Magnesium [Mass/Vol] 1.6 mg/dL Low 1.8-2.4 [facility] Potassium [Moles/Vol] 5.0 mmol/L 3.5-5.1 [facility] Protein [Mass/Vol] 6.7 g/dL 6.4-8.2 [facility] Sodium [Moles/Vol] 133 mmol/L Low 136-145 [facility] Urea nitrogen [Mass/Vol] 24.0 mg/dL High 7.0-18.0 [facility] Urea nitrogen/Creatinine [Mass ratio] 13.5 mg/mg [facility] Laboratory - Hematology and Cell countson 04-26-2024 Immature granulocytes/100 WBC (Bld) 0.4 % 0.0-0.5 [facility] Leukocytes [#/volume] correc kitty for nucleated erythrocytes in Blood by Automated counon 04-26-2024 WBC corrected for nucl RBC Auto (Bld) [#/Vol] Leukocytes [#/volume] corrected for nucleated erythrocytes in Blood by Automated coun High 4.0-11.0 [facility] Lymphocytes Auto (Bld) [#/Vo l]on 04-26-2024 Lymphocytes (Bld) [#/Vol] Lymphocytes [#/volume] in Blood by Automated count Low 1.2-3.8 [facility] Lymphocytes/100 WBC Auto (Bl d)on 04-26-2024 Lymphocytes/100 WBC (Bld) Lymphocytes/100 leukocytes in Blood by Automated count Low 20.5-60.0 [facility] MCH Auto (RBC) [Entitic mass ]on 04-26-2024 MCH (RBC) [Entitic mass] MCH [Entitic mass] by Automated count 26.7-34.0 [facility] MCHC Auto (RBC) [Mass/Vol]on 04-26-2024 MCHC (RBC) [Mass/Vol] MCHC [Mass/volume] by Automated count 29.9-35.2 [facility] MCV Auto (RBC) [Entitic vol] on 04-26-2024 MCV (RBC) [Entitic vol] MCV [Entitic volume] by Automated count 81.0-99.0 [facility] Monocytes Auto (Bld) [#/Vol] on 04-26-2024 Monocytes (Bld) [#/Vol] Automated blood monocyte count High 0.3-0.8 [facility] Monocytes/100 WBC Auto (Bld) on 04-26-2024 Monocytes/100 WBC (Bld) Automated monocyte % 1.7-12.0 [facility] Neutrophils Auto (Bld) [#/Vo l]on 04-26-2024 Neutrophils (Bld) [#/Vol] Neutrophils [#/volume] in Blood by Automated count High 1.4-6.5 [facility] Neutrophils/100 WBC Auto (Bl d)on 04-26-2024 Neutrophils/100 WBC (Bld) Automated neutrophil % High 43.0-75.0 [facility] No Panel Informationon 04-26 Eosinophils # (Auto) 0.0 10 3/uL 0.0-0.7 [facility] Immature Granulocyte # (Auto) 0.05 10 3/uL High 0.00-0.03 [facility] Platelet mean volume Auto (B ld) [Entitic vol]on 04-26-2024 Platelet mean volume (Bld) [Entitic vol] Platelet mean volume [Entitic volume] in Blood by Automated count Low 9.5-13.5 [facility] Platelets Auto (Bld) [#/Vol] on 04-26-2024 Platelets (Bld) [#/Vol] Platelets [#/volume] in Blood by Automated count 150-450 [facility] RBC Auto (Bld) [#/Vol]on RBC (Bld) [#/Vol] Erythrocytes [#/volu me] in Blood by Automated count 4.20-5.40 [facility] Serum or plasma albumin/glob ulin mass ratioon 04-26-2024 Albumin/Globulin [Mass ratio] Serum or plasma albumin/globulin mass ratio [facility] Serum or plasma anion gap de terminationon 04-26-2024 Anion gap [Moles/Vol] Serum or plasma an ion gap determination [facility] Basophils Auto (Bld) [#/Vol] on 04-25-2024 Basophils (Bld) [#/Vol] Automated basophil count 0.0-0.1 [facility] Basophils/100 WBC Auto (Bld) on 04-25-2024 Basophils/100 WBC (Bld) Automated basophil % 0.2-2.0 [facility] Eosinophils/100 WBC Auto (Bl d)on 04-25-2024 Eosinophils/100 WBC (Bld) Automated eosinophil % Low 0.9-7.0 [facility] Erythrocyte distribution wid th Auto (RBC) [Ratio]on 04-25-2024 Erythrocyte distribution width (RBC) [Ratio] Erythrocyte distribution width [Ratio] by Automated count 11.0-15.0 [facility] Estimated glomerular filtrat ion rate (GFR) non- Americanon 04-25-2024 GFR/1.73 sq M.predicted among non-blacks MDRD (S/P/Bld) [Vol rate/Area] Estimated glomerular filtration rate (GFR) non- Low >=60 mL/min/1.7 3m 2 [facility] Globulin Calc (S) [Mass/Vol] on 04-25-2024 Globulin (S) [Mass/Vol] Serum globulin measurement by calculation (mass/volume) [facility] Hematocrit Auto (Bld) [Volum e fraction]on 04-25-2024 Hematocrit (Bld) [Volume fraction] Hematocrit [Volume Fraction] of Blood by Automated count Low 36.0-48.0 [facility] Hemoglobin [Mass/volume] in Bloodon 04-25-2024 Hemoglobin (Bld) [Mass/Vol] Hemoglobin [Mass/volume] in Blood Low 12.0-16.0 [facility] Laboratory - Chemistry and C hemistry - challengeon 04-25-2024 Albumin [Mass/Vol] 3.0 g/dL Low 3.4-5.0 [facility] ALP [Catalytic activity/Vol] 31 U/L Low 46-116 [facility] ALT [Catalytic activity/Vol] 15 U/L 14-59 [facility] AST [Catalytic activity/Vol] 17 U/L 15-37 [facility] Bilirubin [Mass/Vol] 0.8 mg/dL 0.2-1.0 [facility] Calcium [Mass/Vol] 9.3 mg/dL 8.5-10.1 [facility] Comment on above: RESULTS CALLED TO [] @BY Anne Chandler at 0555 Chloride [Moles/Vol] 102 mmol/L 98-107 [facility] CO2 [Moles/Vol] 27.2 mmol/L 21.0-32.0 [facility] Creatinine [Mass/Vol] 1.34 mg/dL High 0.55-1.02 [facility] GFR/1.73 sq M.predicted MDRD (S/P/Bld) [Vol rate/Area] 45 mL/min/{1.73_m2} Low >=60 mL/min/1.7 3m 2 [facility] Glucose [Mass/Vol] 95 mg/dL 74-106 [facility] Potassium [Moles/Vol] 4.6 mmol/L 3.5-5.1 [facility] Protein [Mass/Vol] 6.4 g/dL 6.4-8.2 [facility] Sodium [Moles/Vol] 137 mmol/L 136-145 [facility] Urea nitrogen [Mass/Vol] 22.0 mg/dL High 7.0-18.0 [facility] Urea nitrogen/Creatinine [Mass ratio] 16.4 mg/mg [facility] Laboratory - Hematology and Cell countson 04-25-2024 Immature granulocytes/100 WBC (Bld) 0.2 % 0.0-0.5 [facility] Leukocytes [#/volume] correc kitty for nucleated erythrocytes in Blood by Automated counon 04-25-2024 WBC corrected for nucl RBC Auto (Bld) [#/Vol] Leukocytes [#/volume] corrected for nucleated erythrocytes in Blood by Automated coun High 4.0-11.0 [facility] Lymphocytes Auto (Bld) [#/Vo l]on 04-25-2024 Lymphocytes (Bld) [#/Vol] Lymphocytes [#/volume] in Blood by Automated count Low 1.2-3.8 [facility] Lymphocytes/100 WBC Auto (Bl d)on 04-25-2024 Lymphocytes/100 WBC (Bld) Lymphocytes/100 leukocytes in Blood by Automated count Low 20.5-60.0 [facility] MCH Auto (RBC) [Entitic mass ]on 04-25-2024 MCH (RBC) [Entitic mass] MCH [Entitic mass] by Automated count 26.7-34.0 [facility] MCHC Auto (RBC) [Mass/Vol]on 04-25-2024 MCHC (RBC) [Mass/Vol] MCHC [Mass/volume] by Automated count 29.9-35.2 [facility] MCV Auto (RBC) [Entitic vol] on 04-25-2024 MCV (RBC) [Entitic vol] MCV [Entitic volume] by Automated count 81.0-99.0 [facility] Monocytes Auto (Bld) [#/Vol] on 04-25-2024 Monocytes (Bld) [#/Vol] Automated blood monocyte count High 0.3-0.8 [facility] Monocytes/100 WBC Auto (Bld) on 04-25-2024 Monocytes/100 WBC (Bld) Automated monocyte % 1.7-12.0 [facility] Neutrophils Auto (Bld) [#/Vo l]on 04-25-2024 Neutrophils (Bld) [#/Vol] Neutrophils [#/volume] in Blood by Automated count High 1.4-6.5 [facility] Neutrophils/100 WBC Auto (Bl d)on 04-25-2024 Neutrophils/100 WBC (Bld) Automated neutrophil % High 43.0-75.0 [facility] No Panel Informationon 04-25 Eosinophils # (Auto) 0.1 10 3/uL 0.0-0.7 [facility] Immature Granulocyte # (Auto) 0.03 10 3/uL 0.00-0.03 [facility] Platelet mean volume Auto (B ld) [Entitic vol]on 04-25-2024 Platelet mean volume (Bld) [Entitic vol] Platelet mean volume [Entitic volume] in Blood by Automated count Low 9.5-13.5 [facility] Platelets Auto (Bld) [#/Vol] on 04-25-2024 Platelets (Bld) [#/Vol] Platelets [#/volume] in Blood by Automated count 150-450 [facility] RBC Auto (Bld) [#/Vol]on RBC (Bld) [#/Vol] Erythrocytes [#/volu me] in Blood by Automated count Low 4.20-5.40 [facility] Serum or plasma albumin/glob ulin mass ratioon 04-25-2024 Albumin/Globulin [Mass ratio] Serum or plasma albumin/globulin mass ratio [facility] Serum or plasma anion gap de terminationon 04-25-2024 Anion gap [Moles/Vol] Serum or plasma an ion gap determination [facility] Basophils Auto (Bld) [#/Vol] on 04-24-2024 Basophils (Bld) [#/Vol] Automated basophil count 0.0-0.1 [facility] Basophils/100 WBC Auto (Bld) on 04-24-2024 Basophils/100 WBC (Bld) Automated basophil % 0.2-2.0 [facility] Eosinophils/100 WBC Auto (Bl d)on 04-24-2024 Eosinophils/100 WBC (Bld) Automated eosinophil % Low 0.9-7.0 [facility] Erythrocyte distribution wid th Auto (RBC) [Ratio]on 04-24-2024 Erythrocyte distribution width (RBC) [Ratio] Erythrocyte distribution width [Ratio] by Automated count 11.0-15.0 [facility] Estimated glomerular filtrat ion rate (GFR) non- Americanon 04-24-2024 GFR/1.73 sq M.predicted among non-blacks MDRD (S/P/Bld) [Vol rate/Area] Estimated glomerular filtration rate (GFR) non- Low >=60 mL/min/1.7 3m 2 [facility] Globulin Calc (S) [Mass/Vol] on 04-24-2024 Globulin (S) [Mass/Vol] Serum globulin measurement by calculation (mass/volume) [facility] Hematocrit Auto (Bld) [Volum e fraction]on 04-24-2024 Hematocrit (Bld) [Volume fraction] Hematocrit [Volume Fraction] of Blood by Automated count 36.0-48.0 [facility] Hemoglobin [Mass/volume] in Bloodon 04-24-2024 Hemoglobin (Bld) [Mass/Vol] Hemoglobin [Mass/volume] in Blood 12.0-16.0 [facility] Laboratory - Chemistry and C hemistry - challengeon 04-24-2024 Albumin [Mass/Vol] 3.5 g/dL 3.4-5.0 [facility] ALP [Catalytic activity/Vol] 37 U/L Low 46-116 [facility] ALT [Catalytic activity/Vol] 14 U/L 14-59 [facility] AST [Catalytic activity/Vol] 19 U/L 15-37 [facility] Bilirubin [Mass/Vol] 0.7 mg/dL 0.2-1.0 [facility] Calcium [Mass/Vol] 9.9 mg/dL 8.5-10.1 [facility] Chloride [Moles/Vol] 101 mmol/L 98-107 [facility] CO2 [Moles/Vol] 28.3 mmol/L 21.0-32.0 [facility] Creatinine [Mass/Vol] 1.39 mg/dL High 0.55-1.02 [facility] GFR/1.73 sq M.predicted MDRD (S/P/Bld) [Vol rate/Area] 43 mL/min/{1.73_m2} Low >=60 mL/min/1.7 3m 2 [facility] Glucose [Mass/Vol] 115 mg/dL High 74-106 [facility] Lactate [Moles/Vol] 1.6 mmol/L 0.4-2.0 [facility] Lipase [Catalytic activity/Vol] 18.0 U/L 16.0-77.0 [facility] Potassium [Moles/Vol] 4.4 mmol/L 3.5-5.1 [facility] Protein [Mass/Vol] 7.5 g/dL 6.4-8.2 [facility] Sodium [Moles/Vol] 138 mmol/L 136-145 [facility] Urea nitrogen [Mass/Vol] 26.0 mg/dL High 7.0-18.0 [facility] Urea nitrogen/Creatinine [Mass ratio] 18.7 mg/mg [facility] Laboratory - Hematology and Cell countson 04-24-2024 Immature granulocytes/100 WBC (Bld) 0.5 % 0.0-0.5 [facility] Leukocytes [#/volume] correc kitty for nucleated erythrocytes in Blood by Automated counon 04-24-2024 WBC corrected for nucl RBC Auto (Bld) [#/Vol] Leukocytes [#/volume] corrected for nucleated erythrocytes in Blood by Automated coun High 4.0-11.0 [facility] Lymphocytes Auto (Bld) [#/Vo l]on 04-24-2024 Lymphocytes (Bld) [#/Vol] Lymphocytes [#/volume] in Blood by Automated count 1.2-3.8 [facility] Lymphocytes/100 WBC Auto (Bl d)on 04-24-2024 Lymphocytes/100 WBC (Bld) Lymphocytes/100 leukocytes in Blood by Automated count Low 20.5-60.0 [facility] MCH Auto (RBC) [Entitic mass ]on 04-24-2024 MCH (RBC) [Entitic mass] MCH [Entitic mass] by Automated count 26.7-34.0 [facility] MCHC Auto (RBC) [Mass/Vol]on 04-24-2024 MCHC (RBC) [Mass/Vol] MCHC [Mass/volume] by Automated count 29.9-35.2 [facility] MCV Auto (RBC) [Entitic vol] on 04-24-2024 MCV (RBC) [Entitic vol] MCV [Entitic volume] by Automated count 81.0-99.0 [facility] Monocytes Auto (Bld) [#/Vol] on 04-24-2024 Monocytes (Bld) [#/Vol] Automated blood monocyte count High 0.3-0.8 [facility] Monocytes/100 WBC Auto (Bld) on 04-24-2024 Monocytes/100 WBC (Bld) Automated monocyte % 1.7-12.0 [facility] Neutrophils Auto (Bld) [#/Vo l]on 04-24-2024 Neutrophils (Bld) [#/Vol] Neutrophils [#/volume] in Blood by Automated count High 1.4-6.5 [facility] Neutrophils/100 WBC Auto (Bl d)on 04-24-2024 Neutrophils/100 WBC (Bld) Automated neutrophil % High 43.0-75.0 [facility] No Panel Informationon 04-24 Eosinophils # (Auto) 0.0 10 3/uL 0.0-0.7 [facility] Immature Granulocyte # (Auto) 0.07 10 3/uL High 0.00-0.03 [facility] Troponin I High Sensitivity 12.3 pg/mL 4.0-51.3 [facility] Comment on above: CUT-OFF POINTS HAVE [...] IN CONJUNCTIONWITH OTHER DIAGNOSTIC AND CLINICAL INFORMATION. Platelet mean volume Auto (B ld) [Entitic vol]on 04-24-2024 Platelet mean volume (Bld) [Entitic vol] Platelet mean volume [Entitic volume] in Blood by Automated count Low 9.5-13.5 [facility] Platelets Auto (Bld) [#/Vol] on 04-24-2024 Platelets (Bld) [#/Vol] Platelets [#/volume] in Blood by Automated count 150-450 [facility] RBC Auto (Bld) [#/Vol]on RBC (Bld) [#/Vol] Erythrocytes [#/volu me] in Blood by Automated count Low 4.20-5.40 [facility] Serum or plasma albumin/glob ulin mass ratioon 04-24-2024 Albumin/Globulin [Mass ratio] Serum or plasma albumin/globulin mass ratio [facility] Serum or plasma anion gap de terminationon 04-24-2024 Anion gap [Moles/Vol] Serum or plasma an ion gap determination [facility] Urine Cultureon 04-24-2024 Bacteria identified Cx Nom (U) ORGANISM: Klebsiella variicola (O:KLEVAR) [place] Count >100,000 Aerobic JODY Charge (NMIC56) -- SUSCEPTIBILITY - ORGANISM: O:KLEVAR ANTIBIOTIC INTERPRETATION JODY Amikacin S [...] RESISTANT TO ALL B-LACTAM DRUGS. PERFORMED BY: [place] [address] PATHOLOGIST NUCLEAR ENGINEER DERREK HECK M.D. Normal [facility] Comment on above: Performed By: #### C UU #### [address] Urine cultureOrdered By: Michaelle Bernard on 04-24-2024 Bacteria identified Cx Nom (U) Abnormal [facility] Laboratory - Chemistry and C hemistry - challengeon 03-01-2025 Bilirubin Ql (U) Negative NEGATIVE [facility] Glucose (U) [Mass/Vol] Negative NEGATIVE [facility] Ketones Ql (U) Negative NEGATIVE [facility] pH (U) 5.5 [pH] 5.0-9.0 [facility] Specific gravity (U) [Rel density] 1.020 1.005-1.02 5 [facility] Urobilinogen Qn (U) 0.2 {Gen'U}/dL 0.2-1.0 [facility] Laboratory - Specimen inform ationon 04-08-2024 Appearance (U) CLEAR CLEAR [facility] Color (U) LT. YELLOW YELLOW [facility] Laboratory - Urinalysison Leukocyte esterase Test strip Ql (U) TRACE Abnormal NEGATIVE [facility] Mucus Ql (Urine sed) NONE SEEN NONE SEEN [facility] Nitrite Ql (U) Positive Abnormal NEGATIVE [facility] Protein Ql (U) TRACE mg/dL NEG/TRACE [facility] No Panel Informationon 04-08 Urine Bacteria SMALL #/HPF Abnormal NONE SEEN [facility] Urine Culture Reflexed YES-[facility] Urine Microscopic Review YES [facility] Urine Occult Blood MODERATE Abnormal NEGATIVE [facility] Urine Other Casts NONE SEEN #/LPF NONE SEEN [facility] Urine Other Crystals None Seen #/HPF None Seen [facility] Urine RBC 0-2 #/HPF 0-2 [facility] Urine Squamous Epithelial Cells FEW #/LPF Abnormal NONE/RARE [facility] Urine WBC 5-10 #/HPF Abnormal NONE SEEN [facility] Urine Cultureon 04-08-2024 Bacteria identified Cx Nom (U) ORGANISM: Klebsiella pneumoniae (O:KLEPNE) [place] Count >100,000 Aerobic JODY Charge (NMIC56) -- [...] RESISTANT TO ALL B-LACTAM DRUGS. PERFORMED BY: [place] [address] PATHOLOGIST NUCLEAR ENGINEER DERREK HECK M.D. Normal [facility] Comment on above: Performed By: #### C UU #### [address] Basophils/100 WBC Manual cnt (Bld)on 04-07-2024 Basophils/100 WBC (Bld) Basophils/100 leukocytes in Blood by Manual count Low 0.2-2.0 [facility] Eosinophils/100 WBC Manual c nt (Bld)on 04-07-2024 Eosinophils/100 WBC (Bld) Eosinophils/100 leukocytes in Blood by Manual count Low 0.9-7.0 [facility] Estimated glomerular filtrat ion rate (GFR) non- Americanon 04-07-2024 GFR/1.73 sq M.predicted among non-blacks MDRD (S/P/Bld) [Vol rate/Area] Estimated glomerular filtration rate (GFR) non- Low >=60 mL/min/1.7 3m 2 [facility] Globulin Calc (S) [Mass/Vol] on 04-07-2024 Globulin (S) [Mass/Vol] Serum globulin measurement by calculation (mass/volume) [facility] INR in Platelet poor plasma by Coagulation assayon 04-07-2024 INR Coag (PPP) [Relative time] INR in Platelet poor plasma by Coagulation assay [facility] Comment on above: DESIRED INR:2.0-3.0 CONDITIONS NOT LISTED BELOW2.5-3.5 FOR PROSTHETIC HEART VALVE REPLACEMENT2.5-3.5 [facility]ROMBOS[facility] Laboratory - Chemistry and C hemistry - challengeon 04-07-2024 Albumin [Mass/Vol] 3.5 g/dL 3.4-5.0 [facility] ALP [Catalytic activity/Vol] 36 U/L Low 46-116 [facility] ALT [Catalytic activity/Vol] 17 U/L 14-59 [facility] AST [Catalytic activity/Vol] 20 U/L 15-37 [facility] Bilirubin [Mass/Vol] 0.6 mg/dL 0.2-1.0 [facility] Calcium [Mass/Vol] 9.5 mg/dL 8.5-10.1 [facility] Chloride [Moles/Vol] 103 mmol/L 98-107 [facility] CO2 [Moles/Vol] 23.7 mmol/L 21.0-32.0 [facility] Creatinine [Mass/Vol] 1.43 mg/dL High 0.55-1.02 [facility] GFR/1.73 sq M.predicted MDRD (S/P/Bld) [Vol rate/Area] 42 mL/min/{1.73_m2} Low >=60 mL/min/1.7 3m 2 [facility] Glucose [Mass/Vol] 101 mg/dL 74-106 [facility] Lactate [Moles/Vol] 1.2 mmol/L 0.4-2.0 [facility] Potassium [Moles/Vol] 4.3 mmol/L 3.5-5.1 [facility] Protein [Mass/Vol] 7.3 g/dL 6.4-8.2 [facility] Sodium [Moles/Vol] 136 mmol/L 136-145 [facility] Urea nitrogen [Mass/Vol] 22.0 mg/dL High 7.0-18.0 [facility] Urea nitrogen/Creatinine [Mass ratio] 15.4 mg/mg [facility] Laboratory - Hematology and Cell countson 04-07-2024 Lymphocytes/100 WBC (Bld) 9.0 % Low 20.5-60.0 [facility] Monocytes/100 WBC (Bld) 11.0 % 1.7-12.0 [facility] Laboratory - Microbiology an d Antimicrobial susceptibilityon 04-07-2024 SARS-CoV-2 (COVID-19) RNA OH+probe Ql (Unsp spec) Negative NEGATIVE [facility] Comment on above: This test has not be en FDA cleared or approved, but has beenauthorized by the FDA under an Emergency Use Authorization(EUA) for use by authorized laboratories certified underIA that meet the requirements to perform moderate [...] Absolute Basophils (Manual) 0.00 10 3/uL 0.00-0.10 [facility] Bedside Influenza Type A Antigen Negative [facility] Comment on above: Negative for Flu A p rotein antigen. Infection due to Flu Acannot be ruled out. Flu A antigen in the sample may bebelow the detection limit of the test. Bedside Influenza Type B Antigen Negative [facility] Comment on above: Negative for Flu B p rotein antigen. Infection due to Flu Bcannot be ruled out. Flu B antigen in the sample may bebelow the detection limit of the test. Eosinophils # (Manual) 0.00 10 3/uL 0.00-0.70 [facility] Lymphocytes # (Manual) 0.72 10 3/uL Low 1.20-3.80 [facility] Monocytes # (Manual) 0.89 10 3/uL High 0.30-0.80 [facility] Segmented Neutrophils # (Manual) 6.48 10 3/uL 1.4-6.5 [facility] Troponin I High Sensitivity 19.1 pg/mL 4.0-51.3 [facility] Comment on above: CUT-OFF POINTS HAVE [...] (PPP) [Time] Prothrombin time (PT) 9.0- 11.6 [facility] Segmented neutrophils/100 WB C Manual cnt (Bld)on 04-07-2024 Segmented neutrophils/100 WBC (Bld) Manual blood segmented neutrophils/100 leukocytes High 43.0-75.0 [facility] Serum or plasma albumin/glob ulin mass ratioon 04-07-2024 Albumin/Globulin [Mass ratio] Serum or plasma albumin/globulin mass ratio [facility] Serum or plasma anion gap de terminationon 04-07-2024 Anion gap [Moles/Vol] Serum or plasma an ion gap determination [facility] Office Visiton 03-02-2024 Follow-up visit [id number] Sage Hsu 1935 F Date Provider Department Center 03/02/2024 271-MIESHA BARRY CARD [facility] Family History Problem Relation Age of Onset Aneurysm Mother Heart attack Father Family Status - Relation Status Age at Mother Father Level of Service:02427 [place] OFFICE/OUTPATIENT ESTABLISHED LOW MDM 20 MIN Normal [facility] No Panel Informationon 02-27 Wily Ingram NP 02/28/2024 3:34 PM L Inj/Asp: L knee on 02/28/2024 3:32 PM Indications: pain Details: 21 G needle, anterolateral approach Medications: 40 mg methylPREDNISolone acetate 40 MG/ML Outcome: tolerated well, no immediate complications Site was cleaned with isopropyl alcohol Procedure, treatment alternatives, risks and benefits explained, specific risks discussed. Consent was given by the patient. [facility] [employer] XR Knee - left 1 or [...] dislocation. 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 [facility] [employer] Radiology Study observation (narrative) [facility] [employer] BASIC METABOLIC PANLon 01-06 Anion gap [Moles/Vol] 8 mmol/L Normal 5-15 [facility] Comment on above: Performed By: #### C BC, BMP #### [facility] ([id number]) [address], [address] [place] [address] Calcium [Mass/Vol] 8.9 mg/dL Normal 8.5-10.5 [facility] Comment on above: Performed By: #### C BC, BMP #### [facility] ([id number]) [address] [place] [address] Chloride [Moles/Vol] 99 mmol/L Normal 98-109 [facility] Comment on above: Performed By: #### C BC, BMP #### [facility] ([id number]) [address], [address] [place] [address] CO2 [Moles/Vol] 28 mmol/L Normal 22-32 [facility] Comment on above: Performed By: #### C BC, BMP #### [facility] ([id number]) [address], [address] [place] [address] Creatinine [Mass/Vol] 0.86 mg/dL Normal 0.40-1.00 [facility] Comment on above: Result Comment: METH OD TRACEABLE TO IDMS STANDARD Performed By: #### Jeny MARTÍNEZ, BMP #### [facility] ([id number]) [address] [place] [address] GFR/1.73 sq M.predicted among non-blacks MDRD (S/P/Bld) [Vol rate/Area] 65 mL/min/{1.73_m2} Normal >59 [facility] Comment on above: Result Comment: Reported eGFR is based on the CKD-EPI 2020 equation that does not use a race coefficient. Performed By: #### C TANYA, BMP #### [facility] ([id number]) [address] [place] [address] Glucose [Mass/Vol] 93 mg/dL Normal 65-99 [facility] Comment on above: Performed By: #### Jeny MARTÍNEZ, BMP #### [facility] ([id number]) [address] [place] [address] Potassium [Moles/Vol] 3.9 mmol/L Normal 3.5-5.0 [facility] Comment on above: Performed By: #### Jeny MARTÍNEZ, BMP #### [facility] ([id number]) [address], [address] [address] Sodium [Moles/Vol] 135 mmol/L Normal 134-146 [facility] Comment on above: Performed By: #### Jeny MARTÍNEZ, BMP #### [facility] ([id number]) [address] [place] [address] Urea nitrogen [Mass/Vol] 24 mg/dL Normal 5-27 [facility] Comment on above: Performed By: #### Jeny MARTÍNEZ, BMP #### [facility] ([id number]) [address], [address] [place] [address] Basic Metabolic Panelon - Anion gap [Moles/Vol] 8 mmol/L 5 - 15 mmol/L [facility] Calcium [Mass/Vol] 8.9 mg/dL 8.5 - 10. 5 mg/dL [facility] Chloride [Moles/Vol] 99 mmol/L 98 - 10 9 mmol/L [facility] CO2 [Moles/Vol] 28 mmol/L 22 - 32 mmol/L [facility] Creatinine [Mass/Vol] 0.86 mg/dL 0.40 - 1.00 mg/dL [facility] Comment on above: METHOD TRACEABLE TO [facility] STANDARD eGFR (CKD-EPI)non-race dependent 65 - PINF [facility] Comment on above: Reported eGFR is based on the CKD-EPI 2020 equation that does not use a race coefficient. Glucose [Mass/Vol] 93 mg/dL 65 - 99 mg/dL [facility] Potassium [Moles/Vol] 3.9 mmol/L 3.5 - 5.0 mmol/L [facility] Sodium [Moles/Vol] 135 mmol/L 134 - 146 mmol/L [facility] Urea nitrogen [Mass/Vol] 24 mg/dL 5 - 27 mg/dL [facility] CBC AND AUTO DIFFon 01-07-20 ABSOLUTE BASOPHIL 0.1 X10E9/L Normal 0.0-0.2 [facility] Comment on above: Performed By: #### C TANYA, BMP #### [facility] ([id number]) [address] [place] [address] ABSOLUTE NEUTROPHIL 7.3 X10E9/L High 1.5-6.6 [facility] Comment on above: Performed By: #### C TANYA, BMP #### [facility] ([id number]) [address] [place] [address] Basophils/100 WBC (Bld) 0.6 % Normal [facility] Comment on above: Performed By: #### C TANYA, BMP #### [facility] ([id number]) [address], [address] [place] [address] Eosinophils (Bld) [#/Vol] 0.0 10*3/uL Normal 0.0-0.4 [facility] Comment on above: Performed By: #### Jeny MARTÍNEZ, BMP #### [facility] ([id number]) [address] [place] [address] Eosinophils/100 WBC (Bld) 0.5 % Normal [facility] Comment on above: Performed By: #### C TANYA, BMP #### [facility] ([id number]) [address] [place] [address] Erythrocyte distribution width (RBC) [Ratio] 17.4 % High 11.5-15.0 [facility] Comment on above: Performed By: #### Jeny MARTÍNEZ, BMP #### [facility] ([id number]) [address], [address] [place] [address] Hematocrit (Bld) [Volume fraction] 23.7 % Low 35-47 [facility] Comment on above: Performed By: #### Jeny MARTÍNEZ, BMP #### [facility] ([id number]) [address] [place] [address] Hemoglobin (Bld) [Mass/Vol] 8.3 g/dL Low 11.7-15.5 [facility] Comment on above: Performed By: #### Jeny MARTÍNEZ, BMP #### [facility] ([id number]) [address] [place] [address] Lymphocytes (Bld) [#/Vol] 0.7 10*3/uL Low 1.0-3.5 [facility] Comment on above: Performed By: #### Jeny MARTÍNEZ, BMP #### [facility] ([id number]) [address] [place] [address] Lymphocytes/100 WBC (Bld) 7.8 % Normal [facility] Comment on above: Performed By: #### C TANYA, BMP #### [facility] ([id number]) [address] [place] [address] MCH (RBC) [Entitic mass] 33.5 pg Normal 27-34 [facility] Comment on above: Performed By: #### Jeny MARTÍNEZ, BMP #### [facility] ([id number]) [address] [place] [address] MCHC (RBC) [Mass/Vol] 34.9 g/dL Normal 32-36 [facility] Comment on above: Performed By: #### Jeny MARTÍNEZ, BMP #### [facility] ([id number]) [address], [address] [place] [address] MCV (RBC) [Entitic vol] 96 fL Normal 80-100 [facility] Comment on above: Performed By: #### Jeny MARTÍNEZ, BMP #### [facility] ([id number]) [address] [place] [address] Monocytes (Bld) [#/Vol] 1.1 10*3/uL High 0-0.9 [facility] Comment on above: Performed By: #### C TANYA, BMP #### [facility] ([id number]) [address] [place] [address] Monocytes/100 WBC (Bld) 11.7 % Normal [facility] Comment on above: Performed By: #### Jeny MARTÍNEZ, BMP #### [facility] ([id number]) [address] [place] [address] Neutrophils/100 WBC (Bld) 79.4 % Normal [facility] Comment on above: Performed By: #### Jeny MARTÍNEZ, BMP #### [facility] ([id number]) [address] [place] [address] Platelet mean volume (Bld) [Entitic vol] 7.4 fL Normal 7-12 [facility] Comment on above: Performed By: #### C TANYA, BMP #### [facility] ([id number]) [address] [place] [address] Platelets (Bld) [#/Vol] 326 10*3/uL Normal 150-450 [facility] [facility] Comment on [facility]: Performed By: #### Jeny MARTÍNEZ, BMP #### [facility] ([id number]) [address], [facility] [address] [place] [address] RBC COUNT 2.47 X10E12/L Low 3.80-5.20 [facility] Comment on above: Performed By: #### Jeny MARTÍNEZ, BMP #### [facility] ([id number]) [address], [facility] [address] [place] [address] WBC (Bld) [#/Vol] 9.2 10*3/uL Normal 4.0-11.0 [facility] Comment on above: Performed By: #### Jeny MARTÍNEZ, BMP #### [facility] ([id number]) [address], [facility] [address] [place] [address] CBC auto differentialon 12-10 Basophils (Bld) [#/Vol] 0.1 10*3/uL [facility] Basophils/100 WBC (Bld) 0.6 % [facility] Eosinophils (Bld) [#/Vol] 0 10*3/uL [facility] Eosinophils/100 WBC (Bld) 0.5 % [facility] Erythrocyte distribution width (RBC) [Ratio] 17.4 % High 11.5 - 15.0 % [facility] Hematocrit (Bld) [Volume fraction] 23.7 % Low 35 - 47 % [facility] Hemoglobin (Bld) [Mass/Vol] 8.3 g/dL Low 11.7 - 15.5 g/dL [facility] Interpretation and review of laboratory results Abnormal [facility] Lymphocytes (Bld) [#/Vol] 0.7 10*3/uL Low [facility] Lymphocytes/100 WBC (Bld) 7.8 % [facility] MCH (RBC) [Entitic mass] 33.5 pg 27 - 34 pg [facility] MCHC (RBC) [Mass/Vol] 34.9 g/dL 32 - 3 6 g/dL [facility] MCV (RBC) [Entitic vol] 96 fL 80 - 100 fL [facility] Monocytes (Bld) [#/Vol] 1.1 10*3/uL High [facility] Monocytes/100 WBC (Bld) 11.7 % [facility] Neutrophils (Bld) [#/Vol] 7.3 10*3/uL High [facility] Neutrophils/100 WBC (Bld) 79.4 % [facility] Platelet mean volume (Bld) [Entitic vol] 7.4 fL 7 - 12 fL [facility] Platelets (Bld) [#/Vol] 326 10*3/uL [facility] RBC (Bld) [#/Vol] 2.47 10*6/uL Low [facility] WBC corrected for nucl RBC Auto (Bld) [#/Vol] 9.2 [facility] BASIC METABOLIC PANLon 01-05 Anion gap [Moles/Vol] 11 mmol/L Normal 5-15 [facility] Comment on above: Performed By: #### C TANYA, BMP #### [facility] ([id number]) [address] [place] [address] Calcium [Mass/Vol] 8.9 mg/dL Normal 8.5-10.5 [facility] Comment on above: Performed By: #### C BC, BMP #### [facility] ([id number]) [address] [place] [address] Chloride [Moles/Vol] 101 mmol/L Normal 98-109 [facility] Comment on above: Performed By: #### C BC, BMP #### [facility] ([id number]) [address] [place] [address] CO2 [Moles/Vol] 24 mmol/L Normal 22-32 [facility] Comment on above: Performed By: #### Jeny MARTÍNEZ, BMP #### [facility] ([id number]) [address] [place] [address] Creatinine [Mass/Vol] 0.84 mg/dL Normal 0.40-1.00 [facility] Comment on above: Result Comment: METH OD TRACEABLE TO IDMS STANDARD Performed By: #### C TANYA, BMP #### [facility] ([id number]) [address] [address] GFR/1.73 sq M.predicted among non-blacks MDRD (S/P/Bld) [Vol rate/Area] 67 mL/min/{1.73_m2} Normal >59 [facility] Comment on above: Result Comment: Reported eGFR is based on the CKD-EPI 2020 equation that does not use a race coefficient. Performed By: #### Jeny MARTÍNEZ, BMP #### [facility] ([id number]) [address] [place] [address] Glucose [Mass/Vol] 77 mg/dL Normal 65-99 [facility] Comment on above: Performed By: #### Jeny MARTÍNEZ, BMP #### [facility] ([id number]) [address] [place] [address] Potassium [Moles/Vol] 4.4 mmol/L Normal 3.5-5.0 [facility] Comment on above: Performed By: #### Jeny MARTÍNEZ, BMP #### [facility] ([id number]) [address] [place] [address] Sodium [Moles/Vol] 136 mmol/L Normal 134-146 [facility] Comment on above: Performed By: #### Jeny MARTÍNEZ, BMP #### [facility] ([id number]) [address] [place] [address] Urea nitrogen [Mass/Vol] 20 mg/dL Normal 5-27 [facility] Comment on above: Performed By: #### C TANYA, RAYMUNDO #### [facility] ([id number]) [address] [facility] [place] [address] Basic Metabolic Panelon 11-2 Anion gap [Moles/Vol] 11 mmol/L 5 - 15 mmol/L [facility] Calcium [Mass/Vol] 8.9 mg/dL 8.5 - 10. 5 mg/dL [facility] Chloride [Moles/Vol] 101 mmol/L 98 - 10 9 mmol/L [facility] CO2 [Moles/Vol] 24 mmol/L 22 - 32 mmol/L [facility] Creatinine [Mass/Vol] 0.84 mg/dL 0.40 - 1.00 mg/dL [facility] Comment on above: METHOD TRACEABLE TO IDIL STANDARD eGFR (CKD-EPI)non-race dependent 67 - PINF [facility] Comment on above: Reported eGFR is based on the CKD-EPI 2020 equation that does not use a race coefficient. Glucose [Mass/Vol] 77 mg/dL 65 - 99 mg/dL [facility] Potassium [Moles/Vol] 4.4 mmol/L 3.5 - 5.0 mmol/L [facility] Sodium [Moles/Vol] 136 mmol/L 134 - 146 mmol/L [facility] Urea nitrogen [Mass/Vol] 20 mg/dL 5 - 27 mg/dL [facility] CBC AND AUTO DIFFon 01-06-20 ABSOLUTE BASOPHIL 0.0 X10E9/L Normal 0.0-0.2 [facility] Comment on above: Performed By: #### Jeny MARTÍNEZ, RAYMUNDO #### [facility] ([id number]) [address] [facility] [place] [address] ABSOLUTE NEUTROPHIL 6.7 X10E9/L High 1.5-6.6 [facility] Comment on above: Performed By: #### Jeny MARTÍNEZ, BMP #### [facility] ([id number]) [address] [place] [address] Basophils/100 WBC (Bld) 0.5 % Normal [facility] Comment on above: Performed By: #### C TANYA, BMP #### [facility] ([id number]) [address] [place] [address] Eosinophils (Bld) [#/Vol] 0.2 10*3/uL Normal 0.0-0.4 [facility] Comment on above: Performed By: #### Jeny MARTÍNEZ, BMP #### [facility] ([id number]) [address] [place] [address] Eosinophils/100 WBC (Bld) 1.7 % Normal [facility] Comment on above: Performed By: #### Jeny MARTÍNEZ, BMP #### [facility] ([id number]) [address] [place] [address] Erythrocyte distribution width (RBC) [Ratio] 18.1 % High 11.5-15.0 [facility] Comment on above: Performed By: #### Jeny MARTÍNEZ, BMP #### [facility] ([id number]) [address] [place] [address] Hematocrit (Bld) [Volume fraction] 25.0 % Low 35-47 [facility] Comment on above: Performed By: #### Jeny MARTÍNEZ, BMP #### [facility] ([id number]) [address] [place] [address] Hemoglobin (Bld) [Mass/Vol] 8.7 g/dL Low 11.7-15.5 [facility] Comment on above: Performed By: #### Jeny MARTÍNEZ, BMP #### [facility] ([id number]) [address] [place] [address] Lymphocytes (Bld) [#/Vol] 0.9 10*3/uL Low 1.0-3.5 [facility] Comment on above: Performed By: #### C TANYA, BMP #### [facility] ([id number]) [address] [place] [address] Lymphocytes/100 WBC (Bld) 9.9 % Normal [facility] Comment on above: Performed By: #### Jeny MARTÍNEZ, BMP #### [facility] ([id number]) [address] [place] [address] MCH (RBC) [Entitic mass] 33.8 pg Normal 27-34 [facility] Comment on above: Performed By: #### C TANYA, BMP #### [facility] ([id number]) [address] [place] [address] MCHC (RBC) [Mass/Vol] 34.6 g/dL Normal 32-36 [facility] Comment on above: Performed By: #### Jeny MARTÍNEZ, BMP #### [facility] ([id number]) [address] [place] [address] MCV (RBC) [Entitic vol] 98 fL Normal 80-100 [facility] Comment on above: Performed By: #### Jeny MARTÍNEZ, BMP #### [facility] ([id number]) [address] [place] [address] Monocytes (Bld) [#/Vol] 1.1 10*3/uL High 0-0.9 [facility] Comment on above: Performed By: #### Jeny MARTÍNEZ, BMP #### [facility] ([id number]) [address] [place] [address] Monocytes/100 WBC (Bld) 12.8 % Normal [facility] Comment on above: Performed By: #### Jeny MARTÍNEZ, BMP #### [facility] ([id number]) [address] [place] [address] Neutrophils/100 WBC (Bld) 75.1 % Normal [facility] Comment on above: Performed By: #### Jeny MARTÍNEZ, BMP #### [facility] ([id number]) [address] [address] Platelet mean volume (Bld) [Entitic vol] 7.2 fL Normal 7-12 [facility] Comment on above: Performed By: #### Jeny MARTÍNEZ, BMP #### [facility] ([id number]) [address] [address] Platelets (Bld) [#/Vol] 300 10*3/uL Normal 150-450 [facility] Comment on above: Performed By: #### Jeny MARTÍNEZ, BMP #### [facility] ([id number]) [address] [address] RBC COUNT 2.56 X10E12/L Low 3.80-5.20 [facility] Comment on above: Performed By: #### Jeny MARTÍNEZ, BMP #### [facility] ([id number]) [address] [address] WBC (Bld) [#/Vol] 9.0 10*3/uL Normal 4.0-11.0 [facility] Comment on above: Performed By: #### Jeny MARTÍNEZ, BMP #### [facility] ([id number]) [address] [address] CBC auto differentialon 12-10 Basophils (Bld) [#/Vol] 0 10*3/uL [facility] Basophils/100 WBC (Bld) 0.5 % [facility] Eosinophils (Bld) [#/Vol] 0.2 10*3/uL [facility] Eosinophils/100 WBC (Bld) 1.7 % [facility] Erythrocyte distribution width (RBC) [Ratio] 18.1 % High 11.5 - 15.0 % [facility] Hematocrit (Bld) [Volume fraction] 25 % Low 35 - 47 % [facility] Hemoglobin (Bld) [Mass/Vol] 8.7 g/dL Low 11.7 - 15.5 g/dL [facility] Interpretation and review of laboratory results Abnormal [facility] Lymphocytes (Bld) [#/Vol] 0.9 10*3/uL Low [facility] Lymphocytes/100 WBC (Bld) 9.9 % [facility] MCH (RBC) [Entitic mass] 33.8 pg 27 - 34 pg [facility] MCHC (RBC) [Mass/Vol] 34.6 g/dL 32 - 3 6 g/dL [facility] MCV (RBC) [Entitic vol] 98 fL 80 - 100 fL [facility] Monocytes (Bld) [#/Vol] 1.1 10*3/uL High [facility] Monocytes/100 WBC (Bld) 12.8 % [facility] Neutrophils (Bld) [#/Vol] 6.7 10*3/uL High [facility] Neutrophils/100 WBC (Bld) 75.1 % [facility] Platelet mean volume (Bld) [Entitic vol] 7.2 fL 7 - 12 fL [facility] Platelets (Bld) [#/Vol] 300 10*3/uL [facility] RBC (Bld) [#/Vol] 2.56 10*6/uL Low [facility] WBC corrected for nucl RBC Auto (Bld) [#/Vol] 9 [facility] BASIC METABOLIC PANLon 01-04 Anion gap [Moles/Vol] 11 mmol/L Normal 5-15 [facility] Comment on above: Performed By: #### C BC, BMP #### [facility] ([id number]) [address] [place] [address] Calcium [Mass/Vol] 9.1 mg/dL Normal 8.5-10.5 [facility] Comment on above: Performed By: #### C BC, BMP #### [facility] ([id number]) [address] [place] [address] Chloride [Moles/Vol] 101 mmol/L Normal 98-109 [facility] Comment on above: Performed By: #### C TANYA, BMP #### [facility] ([id number]) [address] [place] [address] CO2 [Moles/Vol] 23 mmol/L Normal 22-32 [facility] Comment on above: Performed By: #### C TANYA, BMP #### [facility] ([id number]) [address] [place] [address] Creatinine [Mass/Vol] 0.94 mg/dL Normal 0.40-1.00 [facility] Comment on above: Result Comment: METH OD TRACEABLE TO IDMS STANDARD Performed By: #### Jeny MARTÍNEZ, BMP #### [facility] ([id number]) [address] [place] [address] GFR/1.73 sq M.predicted among non-blacks MDRD (S/P/Bld) [Vol rate/Area] 59 mL/min/{1.73_m2} Low >59 [facility] Comment on above: Result Comment: Reported eGFR is based on the CKD-EPI 2020 equation that does not use a race coefficient. Performed By: #### Jeny MARTÍNEZ, BMP #### [facility] ([id number]) [address] [place] [address] Glucose [Mass/Vol] 102 mg/dL High 65-99 [facility] Comment on above: Performed By: #### Jeny MARTÍNEZ, BMP #### [facility] ([id number]) [address] [address] [place] [address] Potassium [Moles/Vol] 4.4 mmol/L Normal 3.5-5.0 [facility] Comment on above: Performed By: #### Jeny MARTÍNEZ, BMP #### [facility] ([id number]) [address] [place] [address] Sodium [Moles/Vol] 135 mmol/L Normal 134-146 [facility] Comment on above: Performed By: #### C TANYA, RAYMUNDO #### [facility] ([id number]) [address] [place] [address] Urea nitrogen [Mass/Vol] 21 mg/dL Normal 5-27 [facility] Comment on above: Performed By: #### C TANYA, BMP #### [facility] ([id number]) [address] [place] [address] Bacteria identified Cx Nom ( U)on 01-05-2024 Interpretation and review of laboratory results Abnormal [facility] Service comment (Unsp spec) [Interp] >100,000 ORGANISMS/mL KLEBSIELLA PNEUMONIAE Abnormal [facility] Basic Metabolic Panelon 12-10 Anion gap [Moles/Vol] 11 mmol/L 5 - 15 mmol/L [facility] Calcium [Mass/Vol] 9.1 mg/dL 8.5 - 10. 5 mg/dL [facility] Chloride [Moles/Vol] 101 mmol/L 98 - 10 9 mmol/L [facility] CO2 [Moles/Vol] 23 mmol/L 22 - 32 mmol/L [facility] Creatinine [Mass/Vol] 0.94 mg/dL 0.40 - 1.00 mg/dL [facility] Comment on above: METHOD TRACEABLE TO IDIL STANDARD eGFR (CKD-EPI)non-race dependent 59 Low - PINF [facility] Comment on above: Reported eGFR is based on the CKD-EPI 2020 equation that does not use a race coefficient. Glucose [Mass/Vol] 102 mg/dL High 65 - 99 mg/dL [facility] Interpretation and review of laboratory results Abnormal [facility] Potassium [Moles/Vol] 4.4 mmol/L 3.5 - 5.0 mmol/L [facility] Sodium [Moles/Vol] 135 mmol/L 134 - 146 mmol/L [facility] Urea nitrogen [Mass/Vol] 21 mg/dL 5 - 27 mg/dL [facility] CBC AND AUTO DIFFon 01-05-20 ABSOLUTE BASOPHIL 0.0 X10E9/L Normal 0.0-0.2 [facility] Comment on above: Performed By: #### C TANYA, BMP #### [facility] ([id number]) [address] [place] [address] ABSOLUTE NEUTROPHIL 10.5 X10E9/L High 1.5-6.6 [facility] Comment on above: Performed By: #### C TANYA, BMP #### [facility] ([id number]) [address] [place] [address] Basophils/100 WBC (Bld) 0.3 % Normal [facility] Comment on above: Performed By: #### Jeny MARTÍNEZ, BMP #### [facility] ([id number]) [address] [place] [address] Eosinophils (Bld) [#/Vol] 0.1 10*3/uL Normal 0.0-0.4 [facility] Comment on above: Performed By: #### C TANYA, BMP #### [facility] ([id number]) [address] [place] [address] Eosinophils/100 WBC (Bld) 0.8 % Normal [facility] Comment on above: Performed By: #### Jeny MARTÍNEZ, BMP #### [facility] ([id number]) [address] [place] [address] Erythrocyte distribution width (RBC) [Ratio] 18.4 % High 11.5-15.0 [facility] Comment on above: Performed By: #### C TANYA, BMP #### [facility] ([id number]) [address] [place] [address] Hematocrit (Bld) [Volume fraction] 29.2 % Low 35-47 [facility] Comment on above: Performed By: #### C TANYA, BMP #### [facility] ([id number]) [address] [place] [address] Hemoglobin (Bld) [Mass/Vol] 9.9 g/dL Low 11.7-15.5 [facility] Comment on above: Performed By: #### C TANYA, BMP #### [facility] ([id number]) [address] [place] [address] Lymphocytes (Bld) [#/Vol] 0.9 10*3/uL Low 1.0-3.5 [facility] Comment on above: Performed By: #### C TANYA, BMP #### [facility] ([id number]) [address] [place] [address] Lymphocytes/100 WBC (Bld) 7.3 % Normal [facility] Comment on above: Performed By: #### Jeny MARTÍNEZ, BMP #### [facility] ([id number]) [address] [place] [address] MCH (RBC) [Entitic mass] 32.9 pg Normal 27-34 [facility] Comment on above: Performed By: #### Jeny MARTÍNEZ, BMP #### [facility] ([id number]) [address] [place] [address] MCHC (RBC) [Mass/Vol] 33.8 g/dL Normal 32-36 [facility] Comment on above: Performed By: #### C TANYA, BMP #### [facility] ([id number]) [address] [place] [address] MCV (RBC) [Entitic vol] 97 fL Normal 80-100 [facility] Comment on above: Performed By: #### C TANYA, BMP #### [facility] ([id number]) [address] [place] [address] Monocytes (Bld) [#/Vol] 1.4 10*3/uL High 0-0.9 [facility] Comment on above: Performed By: #### C BC, BMP #### [facility] ([id number]) [address] [place] [address] Monocytes/100 WBC (Bld) 10.7 % Normal [facility] Comment on above: Performed By: #### C BC, BMP #### [facility] ([id number]) [address] [place] [address] Neutrophils/100 WBC (Bld) 80.9 % Normal [facility] Comment on above: Performed By: #### C TANYA, BMP #### [facility] ([id number]) [address] [place] [address] Platelet mean volume (Bld) [Entitic vol] 7.4 fL Normal 7-12 [facility] Comment on above: Performed By: #### C TANYA, BMP #### [facility] ([id number]) [address] [place] [address] Platelets (Bld) [#/Vol] 309 10*3/uL Normal 150-450 [facility] Comment on above: Performed By: #### C BC, BMP #### [facility] ([id number]) [address] [place] [address] RBC COUNT 3.00 X10E12/L Low 3.80-5.20 [facility] Comment on above: Performed By: #### C BC, BMP #### [facility] ([id number]) [address] [place] [address] WBC (Bld) [#/Vol] 12.9 10*3/uL High 4.0-11.0 [facility] Comment on above: Performed By: #### C BC, BMP #### [facility] ([id number]) [address] [place] [address] CBC auto differentialon 12-10 Basophils (Bld) [#/Vol] 0 10*3/uL [facility] Basophils/100 WBC (Bld) 0.3 % [facility] Eosinophils (Bld) [#/Vol] 0.1 10*3/uL [facility] Eosinophils/100 WBC (Bld) 0.8 % [facility] Erythrocyte distribution width (RBC) [Ratio] 18.4 % High 11.5 - 15.0 % [facility] Hematocrit (Bld) [Volume fraction] 29.2 % Low 35 - 47 % [facility] Hemoglobin (Bld) [Mass/Vol] 9.9 g/dL Low 11.7 - 15.5 g/dL [facility] Interpretation and review of laboratory results Abnormal [facility] Lymphocytes (Bld) [#/Vol] 0.9 10*3/uL Low [facility] Lymphocytes/100 WBC (Bld) 7.3 % [facility] MCH (RBC) [Entitic mass] 32.9 pg 27 - 34 pg [facility] MCHC (RBC) [Mass/Vol] 33.8 g/dL 32 - 3 6 g/dL [facility] MCV (RBC) [Entitic vol] 97 fL 80 - 100 fL [facility] Monocytes (Bld) [#/Vol] 1.4 10*3/uL High [facility] Monocytes/100 WBC (Bld) 10.7 % [facility] Neutrophils (Bld) [#/Vol] 10.5 10*3/uL High [facility] Neutrophils/100 WBC (Bld) 80.9 % [facility] Platelet mean volume (Bld) [Entitic vol] 7.4 fL 7 - 12 fL [facility] Platelets (Bld) [#/Vol] 309 10*3/uL [facility] RBC (Bld) [#/Vol] 3 10*6/uL Low [facility] WBC corrected for nucl RBC Auto (Bld) [#/Vol] 12.9 High [facility] Glucose Glucometer (BldC) [M ass/Vol]on 01-05-2024 Glucose [Mass/Vol] 96 mg/dL 65 - 99 mg/dL [facility] Glucose [Mass/Vol] 96 mg/dL Normal 65-99 [facility] BASIC METABOLIC PANLon 01-03 Anion gap [Moles/Vol] 7 mmol/L Normal 5-15 [facility] Comment on above: Performed By: #### C TNAYA, BMP #### [facility] ([id number]) [address] [place] [address] Calcium [Mass/Vol] 8.6 mg/dL Normal 8.5-10.5 [facility] Comment on above: Performed By: #### Jeny MARTÍNEZ, BMP #### [facility] ([id number]) [address], [address] [place] [address] Chloride [Moles/Vol] 103 mmol/L Normal 98-109 [facility] Comment on above: Performed By: #### Jeny MARTÍNEZ, BMP #### [facility] ([id number]) [address], [address] [place] [address] CO2 [Moles/Vol] 23 mmol/L Normal 22-32 [facility] Comment on above: Performed By: #### Jeny MARTÍNEZ, BMP #### [facility] ([id number]) [address], [address] [place] [address] Creatinine [Mass/Vol] 1.11 mg/dL High 0.40-1.00 [facility] Comment on above: Result Comment: METH OD TRACEABLE TO IDMS STANDARD Performed By: #### C TANYA, BMP #### [facility] ([id number]) [address], [address] [place] [address] GFR/1.73 sq M.predicted among non-blacks MDRD (S/P/Bld) [Vol rate/Area] 48 mL/min/{1.73_m2} Low >59 [facility] Comment on above: Result Comment: Reported eGFR is based on the CKD-EPI 2020 equation that does not use a race coefficient. Performed By: #### C TANYA, BMP #### [facility] ([id number]) [address], [address] [place] [address] Glucose [Mass/Vol] 85 mg/dL Normal 65-99 [facility] Comment on above: Performed By: #### C TANYA, BMP #### [facility] ([id number]) [address], [address] [place] [address] Potassium [Moles/Vol] 5.4 mmol/L High 3.5-5.0 [facility] Comment on above: Result Comment: SPEC IMEN HEMOLYZED, RESULTS INCREASED MODERATELY HEMOLYZED Performed By: #### C TANYA, BMP #### [facility] ([id number]) [address], [address] [place] [address] Sodium [Moles/Vol] 133 mmol/L Low 134-146 [facility] Comment on above: Performed By: #### C TANYA, BMP #### [facility] ([id number]) [address], [address] [address] Urea nitrogen [Mass/Vol] 21 mg/dL Normal 5-27 [facility] Comment on above: Performed By: #### Jney MARTÍNEZ, BMP #### [facility] ([id number]) [address], [address] [address] BLOOD CULTUREon 01-04-2024 Bacteria identified Aer cx Nom (Bld) CULTURE RESULTS NO GROWTH 5 DAYS Normal [facility] Bacteria identified Aer cx Nom (Bld) CULTURE RESULTS NO GROWTH 5 DAYS Normal [facility] Basic Metabolic Panelon 12-10 Anion gap [Moles/Vol] 7 mmol/L 5 - 15 mmol/L [facility] Calcium [Mass/Vol] 8.6 mg/dL 8.5 - 10. 5 mg/dL [facility] Chloride [Moles/Vol] 103 mmol/L 98 - 10 9 mmol/L [facility] CO2 [Moles/Vol] 23 mmol/L 22 - 32 mmol/L [facility] Creatinine [Mass/Vol] 1.11 mg/dL High 0.40 - 1.00 mg/dL [facility] Comment on above: METHOD TRACEABLE TO [facility] STANDARD eGFR (CKD-EPI)non-race dependent 48 Low - PINF [facility] Comment on above: Reported eGFR is based on the CKD-EPI 2020 equation that does not use a race coefficient. Glucose [Mass/Vol] 85 mg/dL 65 - 99 mg/dL [facility] Interpretation and review of laboratory results Abnormal [facility] Potassium [Moles/Vol] 5.4 mmol/L High 3.5 - 5.0 mmol/L [facility] Comment on above: SPECIMEN HEMOLYZED, RESULTS INCREASED MODERATELY HEMOLYZED Sodium [Moles/Vol] 133 mmol/L Low 134 - 146 mmol/L [facility] Urea nitrogen [Mass/Vol] 21 mg/dL 5 - 27 mg/dL [facility] CBC AND AUTO DIFFon 01-04-20 ABSOLUTE BASOPHIL 0.1 X10E9/L Normal 0.0-0.2 [facility] Comment on above: Performed By: #### C TANYA, RAYMUNDO #### [facility] ([id number]) [address], [address] [place] [address] ABSOLUTE NEUTROPHIL 12.3 X10E9/L High 1.5-6.6 [facility] Comment on above: Performed By: #### Jeny MARTÍNEZ, BMP #### [facility] ([id number]) [address], [address] [place] [address] Basophils/100 WBC (Bld) 0.4 % Normal [facility] Comment on above: Performed By: #### Jeny MARTÍNEZ, BMP #### [facility] ([id number]) [address], [address] [place] [address] Eosinophils (Bld) [#/Vol] 0.0 10*3/uL Normal 0.0-0.4 [facility] Comment on above: Performed By: #### C TANYA, BMP #### [facility] ([id number]) [address], [address] [place] [address] Eosinophils/100 WBC (Bld) 0.2 % Normal [facility] Comment on above: Performed By: #### C TANYA, BMP #### [facility] ([id number]) [address], [address] [place] [address] Erythrocyte distribution width (RBC) [Ratio] 18.5 % High 11.5-15.0 [facility] Comment on above: Performed By: #### C TANYA, BMP #### [facility] ([id number]) [address], [address] [place] [address] FRAGMENT 1+ Abnormal NONE [facility] Comment on above: Performed By: #### C TANYA, BMP #### [facility] ([id number]) [address], [address] [place] [address] Hematocrit (Bld) [Volume fraction] 25.8 % Low 35-47 [facility] Comment on above: Performed By: #### C TANYA, BMP #### [facility] ([id number]) [address], [address] [place] [address] Hemoglobin (Bld) [Mass/Vol] 8.8 g/dL Low 11.7-15.5 [facility] Comment on above: Performed By: #### C TANYA, BMP #### [facility] ([id number]) [address], [address] [place] [address] Lymphocytes (Bld) [#/Vol] 1.1 10*3/uL Normal 1.0-3.5 [facility] Comment on above: Performed By: #### C TANYA, BMP #### [facility] ([id number]) [address], [address] [place] [address] Lymphocytes/100 WBC (Bld) 7.0 % Normal [facility] Comment on above: Performed By: #### C TANYA, BMP #### [facility] ([id number]) [address], [address] [place] [address] MCH (RBC) [Entitic mass] 32.7 pg Normal 27-34 [facility] Comment on above: Performed By: #### C TANYA, BMP #### [facility] ([id number]) [address], [address] [place] [address] MCHC (RBC) [Mass/Vol] 34.2 g/dL Normal 32-36 [facility] Comment on above: Performed By: #### C TANYA, BMP #### [facility] ([id number]) [address], [address] [place] [address] MCV (RBC) [Entitic vol] 96 fL Normal 80-100 [facility] Comment on above: Performed By: #### Jeny MARTÍNEZ, BMP #### [facility] ([id number]) [address], [address] [place] [address] Monocytes (Bld) [#/Vol] 2.2 10*3/uL High 0-0.9 [facility] Comment on above: Performed By: #### Jeny MARTÍNEZ, BMP #### [facility] ([id number]) [address], [address] [place] [address] Monocytes/100 WBC (Bld) 14.0 % Normal [facility] Comment on above: Performed By: #### C TANYA, BMP #### [facility] ([id number]) [address], [address] [place] [address] Neutrophils/100 WBC (Bld) 78.4 % Normal [facility] Comment on above: Performed By: #### Jeny MARTÍNEZ, BMP #### [facility] ([id number]) [address], [address] [place] [address] OVALOCYTE 1+ Abnormal NONE [facility] Comment on above: Performed By: #### C TANYA, BMP #### [facility] ([id number]) [address], [address] [address] Platelet mean volume (Bld) [Entitic vol] 7.9 fL Normal 7-12 [facility] Comment on above: Performed By: #### C TANYA, BMP #### [facility] ([id number]) [address], [address] [address] Platelets (Bld) [#/Vol] 224 10*3/uL Normal 150-450 [facility] Comment on above: Performed By: #### Jeny MARTÍNEZ, BMP #### [facility] ([id number]) [address], [address] [address] POLYCHROMASIA 1+ Abnormal NONE [facility] Comment on above: Performed By: #### Jeny MARTÍNEZ, BMP #### [facility] ([id number]) [address], [address] [address] RBC COUNT 2.70 X10E12/L Low 3.80-5.20 [facility] Comment on above: Performed By: #### Jeny MARTÍNEZ, BMP #### [facility] ([id number]) [address] [address] WBC (Bld) [#/Vol] 15.7 10*3/uL High 4.0-11.0 [facility] Comment on above: Performed By: #### C TANYA, BMP #### [facility] ([id number]) [address] [address] CBC auto differentialon 12-10 Basophils (Bld) [#/Vol] 0.1 10*3/uL [facility] Basophils/100 WBC (Bld) 0.4 % [facility] Eosinophils (Bld) [#/Vol] 0 10*3/uL [facility] Eosinophils/100 WBC (Bld) 0.2 % [facility] Erythrocyte distribution width (RBC) [Ratio] 18.5 % High 11.5 - 15.0 % [facility] Fragments LM Ql (Bld) 1+ Abnormal NONE^NONE [facility] Hematocrit (Bld) [Volume fraction] 25.8 % Low 35 - 47 % [facility] Hemoglobin (Bld) [Mass/Vol] 8.8 g/dL Low 11.7 - 15.5 g/dL [facility] Interpretation and review of laboratory results Abnormal [facility] Lymphocytes (Bld) [#/Vol] 1.1 10*3/uL [facility] Lymphocytes/100 WBC (Bld) 7 % [facility] MCH (RBC) [Entitic mass] 32.7 pg 27 - 34 pg [facility] MCHC (RBC) [Mass/Vol] 34.2 g/dL 32 - 3 6 g/dL [facility] MCV (RBC) [Entitic vol] 96 fL 80 - 100 fL [facility] Monocytes (Bld) [#/Vol] 2.2 10*3/uL High [facility] Monocytes/100 WBC (Bld) 14 % [facility] Neutrophils (Bld) [#/Vol] 12.3 10*3/uL High [facility] Neutrophils/100 WBC (Bld) 78.4 % [facility] Ovalocytes LM Ql (Bld) 1+ Abnormal NONE^NONE Pr [facility] Platelet mean volume (Bld) [Entitic vol] 7.9 fL 7 - 12 fL [facility] Platelets (Bld) [#/Vol] 224 10*3/uL [facility] Polychromasia LM Ql (Bld) 1+ Abnormal NONE^NONE [facility] RBC (Bld) [#/Vol] 2.7 10*6/uL Low [facility] WBC corrected for nucl RBC Auto (Bld) [#/Vol] 15.7 High [facility] CT ABDOMEN AND PELVIS WO [...] Zachary Sampson MD on 01/04/2024 4:21 PM [facility] CT Abdomen and Pelvis WO con traston [...] Zachary Sampson MD on 01/04/2024 4:21 PM Petar Chew MD - 01/04/2024 CLINICAL INFORMATION: Sepsis. TECHNIQUE: [...] Zachary Sampson MD on 01/04/2024 4:21 PM [facility] Study observation (narrative) [facility] CT Abdomen and Pelvis WO con trastOrdered By: Petar Sampson on 01-04-2024 [facility] Work Phone: ECG 12 leadon 01-04-2024 TRACEMASTERVUE [facility] Glucose Glucometer (BldC) [M ass/Vol]on 01-04-2024 Glucose [Mass/Vol] 140 mg/dL High 65 - 99 mg/dL [facility] Interpretation and review of laboratory results Abnormal [facility] Glucose [Mass/Vol] 140 mg/dL High 65-99 [facility] Glucose [Mass/Vol] 93 mg/dL 65 - 99 mg/dL [facility] Glucose [Mass/Vol] 93 mg/dL Normal 65-99 [facility] Glucose [Mass/Vol] 86 mg/dL 65 - 99 mg/dL [facility] Glucose [Mass/Vol] 86 mg/dL Normal 65-99 [facility] Glucose [Mass/Vol] 94 mg/dL 65 - 99 mg/dL [facility] Glucose [Mass/Vol] 94 mg/dL Normal 65-99 [facility] Glucose [Mass/Vol] 96 mg/dL 65 - 99 mg/dL [facility] Glucose [Mass/Vol] 96 mg/dL Normal 65-99 [facility] POTASSIUMon 01-04-2024 Potassium [Moles/Vol] 4.4 mmol/L Normal 3.5-5.0 [facility] Comment on above: Performed By: #### C BC, BMP #### [facility] ([id number]) [address], [address] [place] [address] Potassiumon 01-04-2024 Potassium [Moles/Vol] 4.4 mmol/L 3.5 - 5.0 mmol/L [facility] Potassium [Moles/Vol]on 12-10 [facility] BASIC METABOLIC PANLon 01-02 Anion gap [Moles/Vol] 10 mmol/L Normal 5-15 [facility] Comment on above: Performed By: #### A FAB5 #### [facility] ([id number]) [address] [place] [address] Calcium [Mass/Vol] 9.0 mg/dL Normal 8.5-10.5 [facility] Comment on above: Performed By: #### A FAB5 #### [facility] ([id number]) [address] [place] [address] Chloride [Moles/Vol] 104 mmol/L Normal 98-109 [facility] Comment on above: Performed By: #### A FAB5 #### [facility] ([id number]) [address] [place] [address] CO2 [Moles/Vol] 23 mmol/L Normal 22-32 [facility] Comment on above: Performed By: #### A FAB5 #### [facility] ([id number]) [address] [place] [address] Creatinine [Mass/Vol] 1.32 mg/dL High 0.40-1.00 [facility] Comment on above: Result Comment: METH OD TRACEABLE TO IDMS STANDARD Performed By: #### A FAB5 #### [facility] ([id number]) [address] [place] [address] GFR/1.73 sq M.predicted among non-blacks MDRD (S/P/Bld) [Vol rate/Area] 39 mL/min/{1.73_m2} Low >59 [facility] Comment on above: Result Comment: Reported eGFR is based on the CKD-EPI 2020 equation that does not use a race coefficient. Performed By: #### A FAB5 #### [facility] ([id number]) [address] [place] [address] Glucose [Mass/Vol] 105 mg/dL High 65-99 [facility] Comment on above: Performed By: #### A FAB5 #### [facility] ([id number]) [address] [place] [address] Potassium [Moles/Vol] 5.1 mmol/L High 3.5-5.0 [facility] Comment on above: Performed By: #### A FAB5 #### [facility] ([id number]) [address] [place] [address] Sodium [Moles/Vol] 137 mmol/L Normal 134-146 [facility] Comment on above: Performed By: #### A FAB5 #### [facility] ([id number]) [address] [place] [address] Urea nitrogen [Mass/Vol] 31 mg/dL High 5-27 [facility] Comment on above: Performed By: #### A FAB5 #### [facility] ([id number]) [address] [place] [address] Basic Metabolic Panelon 12-10 Anion gap [Moles/Vol] 10 mmol/L 5 - 15 mmol/L [facility] Calcium [Mass/Vol] 9 mg/dL 8.5 - 10. 5 mg/dL [facility] Chloride [Moles/Vol] 104 mmol/L 98 - 10 9 mmol/L [facility] CO2 [Moles/Vol] 23 mmol/L 22 - 32 mmol/L [facility] Creatinine [Mass/Vol] 1.32 mg/dL High 0.40 - 1.00 mg/dL [facility] Comment on above: METHOD TRACEABLE TO IDIL STANDARD eGFR (CKD-EPI)non-race dependent 39 Low - PINF [facility] Comment on above: Reported eGFR is based on the CKD-EPI 2020 equation that does not use a race coefficient. Glucose [Mass/Vol] 105 mg/dL High 65 - 99 mg/dL [facility] Interpretation and review of laboratory results Abnormal [facility] Potassium [Moles/Vol] 5.1 mmol/L High 3.5 - 5.0 mmol/L [facility] Sodium [Moles/Vol] 137 mmol/L 134 - 146 mmol/L [facility] Urea nitrogen [Mass/Vol] 31 mg/dL High 5 - 27 mg/dL [facility] CBC AND AUTO DIFFon 01-03-20 ABSOLUTE BASOPHIL 0.0 X10E9/L Normal 0.0-0.2 [facility] Comment on above: Performed By: #### A FAB5 #### [facility] ([id number]) [address] [place] [address] ABSOLUTE NEUTROPHIL 11.7 X10E9/L High 1.5-6.6 [facility] Comment on above: Performed By: #### A FAB5 #### [facility] ([id number]) [address] [place] [address] Basophils/100 WBC (Bld) 0.1 % Normal [facility] Comment on above: Performed By: #### A FAB5 #### [facility] ([id number]) [address] [place] [address] Eosinophils (Bld) [#/Vol] 0.0 10*3/uL Normal 0.0-0.4 [facility] Comment on above: Performed By: #### A FAB5 #### [facility] ([id number]) [address] [place] [address] Eosinophils/100 WBC (Bld) 0.0 % Normal [facility] Comment on above: Performed By: #### A FAB5 #### [facility] ([id number]) [address] [place] [address] Erythrocyte distribution width (RBC) [Ratio] 20.1 % High 11.5-15.0 [facility] Comment on above: Performed By: #### A FAB5 #### [facility] ([id number]) [address] [place] [address] Hematocrit (Bld) [Volume fraction] 27.1 % Low 35-47 [facility] Comment on above: Performed By: #### A FAB5 #### [facility] ([id number]) [address] [place] [address] Hemoglobin (Bld) [Mass/Vol] 9.2 g/dL Low 11.7-15.5 [facility] Comment on above: Performed By: #### A FAB5 #### [facility] ([id number]) [address] [place] [address] Lymphocytes (Bld) [#/Vol] 0.8 10*3/uL Low 1.0-3.5 [facility] Comment on above: Performed By: #### A FAB5 #### [facility] ([id number]) [address] [place] [address] Lymphocytes/100 WBC (Bld) 5.5 % Normal [facility] Comment on above: Performed By: #### A FAB5 #### [facility] ([id number]) [address] [place] [address] MCH (RBC) [Entitic mass] 32.7 pg Normal 27-34 [facility] Comment on above: Performed By: #### A FAB5 #### [facility] ([id number]) [address] [place] [address] MCHC (RBC) [Mass/Vol] 33.9 g/dL Normal 32-36 [facility] Comment on above: Performed By: #### A FAB5 #### [facility] ([id number]) [address] [place] [address] MCV (RBC) [Entitic vol] 97 fL Normal 80-100 [facility] Comment on above: Performed By: #### A FAB5 #### [facility] ([id number]) [address] [place] [address] Monocytes (Bld) [#/Vol] 1.8 10*3/uL High 0-0.9 [facility] Comment on above: Performed By: #### A FAB5 #### [facility] ([id number]) [address] [place] [address] Monocytes/100 WBC (Bld) 12.4 % Normal [facility] Comment on above: Performed By: #### A FAB5 #### [facility] ([id number]) [address] [place] [address] Neutrophils/100 WBC (Bld) 82.0 % Normal [facility] Comment on above: Performed By: #### A FAB5 #### [facility] ([id number]) [address] [place] [address] Platelet mean volume (Bld) [Entitic vol] 7.6 fL Normal 7-12 [facility] Comment on above: Performed By: #### A FAB5 #### [facility] ([id number]) [address] [place] [address] Platelets (Bld) [#/Vol] 303 10*3/uL Normal 150-450 [facility] Comment on above: Performed By: #### A FAB5 #### [facility] ([id number]) [address] [place] [address] RBC COUNT 2.81 X10E12/L Low 3.80-5.20 [facility] Comment on above: Performed By: #### A FAB5 #### [facility] ([id number]) [address] [place] [address] WBC (Bld) [#/Vol] 14.3 10*3/uL High 4.0-11.0 [facility] Comment on above: Performed By: #### A FAB5 #### [facility] ([id number]) [address] [place] [address] CBC auto differentialon 12-10 Basophils (Bld) [#/Vol] 0 10*3/uL [facility] Basophils/100 WBC (Bld) 0.1 % [facility] Eosinophils (Bld) [#/Vol] 0 10*3/uL [facility] Eosinophils/100 WBC (Bld) 0 % [facility] Erythrocyte distribution width (RBC) [Ratio] 20.1 % High 11.5 - 15.0 % [facility] Hematocrit (Bld) [Volume fraction] 27.1 % Low 35 - 47 % [facility] Hemoglobin (Bld) [Mass/Vol] 9.2 g/dL Low 11.7 - 15.5 g/dL [facility] Interpretation and review of laboratory results Abnormal [facility] Lymphocytes (Bld) [#/Vol] 0.8 10*3/uL Low [facility] Lymphocytes/100 WBC (Bld) 5.5 % [facility] MCH (RBC) [Entitic mass] 32.7 pg 27 - 34 pg [facility] MCHC (RBC) [Mass/Vol] 33.9 g/dL 32 - 3 6 g/dL [facility] MCV (RBC) [Entitic vol] 97 fL 80 - 100 fL [facility] Monocytes (Bld) [#/Vol] 1.8 10*3/uL High [facility] Monocytes/100 WBC (Bld) 12.4 % [facility] Neutrophils (Bld) [#/Vol] 11.7 10*3/uL High [facility] Neutrophils/100 WBC (Bld) 82 % [facility] Platelet mean volume (Bld) [Entitic vol] 7.6 fL 7 - 12 fL [facility] Platelets (Bld) [#/Vol] 303 10*3/uL [facility] RBC (Bld) [#/Vol] 2.81 10*6/uL Low [facility] WBC corrected for nucl RBC Auto (Bld) [#/Vol] 14.3 High [facility] Glucose Glucometer (dC) [M ass/Vol]on 01-03-2024 Glucose [Mass/Vol] 108 mg/dL High 65 - 99 mg/dL [facility] Interpretation and review of laboratory results Abnormal [facility] Glucose [Mass/Vol] 108 mg/dL High 65-99 [facility] Glucose [Mass/Vol] 82 mg/dL 65 - 99 mg/dL [facility] Glucose [Mass/Vol] 82 mg/dL Normal 65-99 [facility] Glucose [Mass/Vol] 93 mg/dL 65 - 99 mg/dL [facility] Glucose [Mass/Vol] 93 mg/dL Normal 65-99 [facility] Glucose [Mass/Vol] 103 mg/dL High 65 - 99 mg/dL [facility] Interpretation and review of laboratory results Abnormal [facility] Glucose [Mass/Vol] 103 mg/dL High 65-99 [facility] POTASSIUMon 01-03-2024 Potassium [Moles/Vol] 5.0 mmol/L Normal 3.5-5.0 [facility] Comment on above: Performed By: #### A FAB5 #### [facility] ([id number]) [address] [place] [address] PROTIME AND INRon 01-03-2024 INR Coag (PPP) [Relative time] 1.0 {INR} Normal 0.8-1.1 [facility] Comment on above: Performed By: #### A FAB5 #### [facility] ([id number]) [address] [place] [address] PT Coag (PPP) [Time] 12.2 s Normal 9.8-13.2 [facility] Comment on above: Performed By: #### A FAB5 #### [facility] ([id number]) [address] [place] [address] Potassiumon 01-03-2024 Potassium [Moles/Vol] 5 mmol/L 3.5 - 5.0 mmol/L [facility] Potassium [Moles/Vol]on 12-10 [facility] Protime & INRon 01-03-2024 INR Coag (PPP) [Relative time] 1 {INR} [facility] PT Coag (PPP) [Time] 12.2 s [facility] URINE CULTUREon 01-03-2024 Bacteria identified Cx Nom (U) CULTURE RESULTS >100,000 ORGANISMS/mL KLEBSIELLA PNEUMONIAE [ S = SUSCEPTIBLE R = RESISTANT I = INTERMEDIATE S-DO = Susceptible-dose dependent NS = Non-suscceptible NO = No Interpretation ] Organism: KLEBSIELLA PNEUMONIAE Antibiotic Interpretation JODY Status AMPICILLIN R >=32 F AMP/SULBACTAM S 05/10 F CEFAZOLIN S <=4 F CEFTRIAXONE S <=0.25 F CIPROFLOXACIN R 1 F GENTAMICIN S <=1 F LEVOFLOXACIN I 1 F NITROFURANTOIN R 128 F PIPERACIL/TAZOBACTAM S <=4 F TOBRAMYCIN S <=1 F TRIMETH/SULFAMETHOXAZOL E S <=/19 F Susceptible [facility] Comment on above: Performed By: #### C BC, BMP #### [facility] ([id number]) [address], [address] [place] [address] BASIC METABOLIC PANLon 01-01 GFR/1.73 sq M.predicted among non-blacks MDRD (S/P/Bld) [Vol rate/Area] 57 mL/min/{1.73_m2} Low >59 [facility] Comment on above: Result Comment: Reported eGFR is based on the CKD-EPI 2020 equation that does not use a race coefficient. Performed By: #### I BC #### [facility] ([id number]) [address] [place] [address] Anion gap [Moles/Vol] 9 mmol/L Normal 5-15 [facility] Comment on above: Performed By: #### I BC #### [facility] ([id number]) [address] [place] [address] Calcium [Mass/Vol] 8.4 mg/dL Low 8.5-10.5 [facility] Comment on above: Performed By: #### I BC #### [facility] ([id number]) [address] [place] [address] Chloride [Moles/Vol] 106 mmol/L Normal 98-109 [facility] Comment on above: Performed By: #### I BC #### [facility] ([id number]) [address] [place] [address] CO2 [Moles/Vol] 21 mmol/L Low 22-32 [facility] Comment on above: Performed By: #### I BC #### [facility] ([id number]) [address] [place] [address] Creatinine [Mass/Vol] 0.96 mg/dL Normal 0.40-1.00 [facility] Comment on above: Result Comment: METH OD TRACEABLE TO IDMS STANDARD Performed By: #### I BC #### [facility] ([id number]) [address] [place] [address] METHOD TRACEABLE TO IDMS STANDARD Glucose [Mass/Vol] 153 mg/dL High 65-99 [facility] Comment on above: Performed By: #### I BC #### [facility] ([id number]) [address] [place] [address] Potassium [Moles/Vol] 4.7 mmol/L Normal 3.5-5.0 [facility] Comment on above: Performed By: #### I BC #### [facility] ([id number]) [address] [place] [address] Sodium [Moles/Vol] 136 mmol/L Normal 134-146 [facility] Comment on above: Performed By: #### I BC #### [facility] ([id number]) [address] [place] [address] Urea nitrogen [Mass/Vol] 22 mg/dL Normal 5-27 [facility] Comment on above: Performed By: #### I BC #### [facility] ([id number]) [address] [place] [address] Basic Metabolic Panelon - eGFR (CKD-EPI)non-race dependent 57 Low - PINF [facility] Comment on above: Reported eGFR is based on the CKD-EPI 2020 equation that does not use a race coefficient. CBC AND AUTO DIFFon 01-01- 24 ABSOLUTE BASOPHIL 0.0 X10E9/L Normal 0.0-0.2 [facility] Comment on above: Performed By: #### I BC #### [facility] ([id number]) [address] [place] [address] ABSOLUTE NEUTROPHIL 11.2 X10E9/L High 1.5-6.6 [facility] Comment on above: Performed By: #### I BC #### [facility] ([id number]) [address] [place] [address] Eosinophils (Bld) [#/Vol] 0.0 10*3/uL Normal 0.0-0.4 [facility] Comment on above: Performed By: #### I BC #### [facility] ([id number]) [address] [place] [address] Eosinophils/100 WBC (Bld) 0.0 % Normal [facility] Comment on above: Performed By: #### I BC #### [facility] ([id number]) [address] [place] [address] Erythrocyte distribution width (RBC) [Ratio] 20.0 % High 11.5-15.0 [facility] Comment on above: Performed By: #### I BC #### [facility] ([id number]) [address] [place] [address] RBC COUNT 2.70 X10E12/L Low 3.80-5.20 [facility] Comment on above: Performed By: #### I BC #### [facility] ([id number]) [address] [place] [address] WBC (Bld) [#/Vol] 11.9 10*3/uL High 4.0-11.0 [facility] Comment on above: Performed By: #### I BC #### [facility] ([id number]) [address] [place] [address] Basophils/100 WBC (Bld) 0.1 % Normal [facility] Comment on above: Performed By: #### I BC #### [facility] ([id number]) [address] [place] [address] Hematocrit (Bld) [Volume fraction] 25.6 % Low 35-47 [facility] Comment on above: Performed By: #### I BC #### [facility] ([id number]) [address] [place] [address] Hemoglobin (Bld) [Mass/Vol] 8.8 g/dL Low 11.7-15.5 [facility] Comment on above: Performed By: #### I BC #### [facility] ([id number]) [address] [place] [address] Lymphocytes (Bld) [#/Vol] 0.3 10*3/uL Low 1.0-3.5 [facility] Comment on above: Performed By: #### I BC #### [facility] ([id number]) [address] [place] [address] Lymphocytes/100 WBC (Bld) 2.4 % Normal [facility] Comment on above: Performed By: #### I BC #### [facility] ([id number]) [address] [place] [address] MCH (RBC) [Entitic mass] 32.7 pg Normal 27-34 [facility] Comment on above: Performed By: #### I BC #### [facility] ([id number]) [address] [place] [address] MCHC (RBC) [Mass/Vol] 34.4 g/dL Normal 32-36 [facility] Comment on above: Performed By: #### I BC #### [facility] ([id number]) [address] [place] [address] MCV (RBC) [Entitic vol] 95 fL Normal 80-100 [facility] Comment on above: Performed By: #### I BC #### [facility] ([id number]) [address] [place] [address] Monocytes (Bld) [#/Vol] 0.5 10*3/uL Normal 0-0.9 [facility] Comment on above: Performed By: #### I BC #### [facility] ([id number]) [address] [place] [address] Monocytes/100 WBC (Bld) 3.8 % Normal [facility] Comment on above: Performed By: #### I BC #### [facility] ([id number]) [address] [place] [address] Neutrophils/100 WBC (Bld) 93.7 % Normal [facility] Comment on above: Performed By: #### I BC #### [facility] ([id number]) [address] [place] [address] Platelet mean volume (Bld) [Entitic vol] 7.3 fL Normal 7-12 [facility] Comment on above: Performed By: #### I BC #### [facility] ([id number]) [address] [place] [address] Platelets (Bld) [#/Vol] 285 10*3/uL Normal 150-450 [facility] Comment on above: Performed By: #### I BC #### [facility] ([id number]) [address] [place] [address] CBC auto differentialon 12-10 Basophils (Bld) [#/Vol] 0 10*3/uL [facility] Eosinophils (Bld) [#/Vol] 0 10*3/uL [facility] Eosinophils/100 WBC (Bld) 0 % [facility] Erythrocyte distribution width (RBC) [Ratio] 20 % High 11.5 - 15.0 % [facility] Interpretation and review of laboratory results Abnormal [facility] Neutrophils (Bld) [#/Vol] 11.2 10*3/uL High [facility] RBC (Bld) [#/Vol] 2.7 10*6/uL Low [facility] WBC corrected for nucl RBC Auto (Bld) [#/Vol] 11.9 [facility] Crossmatch RBC:Number of Uni ts: 1on 01-02-2024 BB Type Barcode 6200 [facility] Blood component type [id number] [facility] Crossmatch Compatible [facility] Expiration Date [facility] Status of unit TRANSFUSED [facility] Unit ABO A [facility] Unit number [id number] [facility] RH Positive [facility] Ionized magnesiumon 01-02-20 Magnesium Ionized ISE (Bld) [Moles/Vol] 0.8 mmol/L High 0.45 - 0.74 mmol/L [facility] Comment on above: NEW REFERENCE RANGE Magnesium Ionized ISE (Bld) [Moles/Vol] 0.25 mmol/L Critically low 0.45 - 0.74 mmol/L [facility] Comment on above: NEW REFERENCE RANGE MAGNESIUMon 01-02-2024 Magnesium [Mass/Vol] 1.3 mg/dL Low 1.8-2.6 [facility] Comment on above: Performed By: #### I BC #### [facility] ([id number]) [address] [place] [address] Magnesium Ionized ISE (Bld) [Moles/Vol]on 01-02-2024 Interpretation and review of laboratory results Abnormal [facility] Magnesium [Moles/Vol] 0.80 mmol/L High 0.45-0.74 [facility] Comment on above: Result Comment: NEW REFERENCE RANGE Performed By: #### A FAB5 #### [facility] ([id number]) [address] [place] [address] Interpretation and review of laboratory results Abnormal [facility] Magnesium [Moles/Vol] 0.25 mmol/L Critically low 0.45-0.74 [facility] Comment on above: Result Comment: NEW REFERENCE RANGE Performed By: #### I BC #### [facility] ([id number]) [address] [place] [address] No Panel Informationon 01-01 Interpretation and review of laboratory results Abnormal [facility] PHOSPHORUSon 01-02-2024 Phosphate [Mass/Vol] 5.0 mg/dL High 2.4-4.9 [facility] Comment on above: Performed By: #### A FAB5 #### [facility] ([id number]) [address] [place] [address] PROTIME AND INRon 01-02-2024 INR Coag (PPP) [Relative time] 1.1 {INR} Normal 0.8-1.1 [facility] Comment on above: Performed By: #### I BC #### [facility] ([id number]) [address] [place] [address] PT Coag (PPP) [Time] 13.2 s Normal 9.8-13.2 [facility] Comment on above: Performed By: #### I BC #### [facility] ([id number]) [address] [place] [address] Phosphoruson 01-02-2024 Phosphate [Mass/Vol] 5 mg/dL High 2.4 - 4 .9 mg/dL [facility] Protime & INRon 01-02-2024 [facility] BASIC METABOLIC PANLon 12-31 Anion gap [Moles/Vol] 7 mmol/L Normal 5-15 [facility] Comment on above: Performed By: #### I BC #### [facility] ([id number]) [address] [place] [address] Calcium [Mass/Vol] 8.4 mg/dL Low 8.5-10.5 [facility] Comment on above: Performed By: #### I BC #### [facility] ([id number]) [address] [place] [address] Chloride [Moles/Vol] 107 mmol/L Normal 98-109 [facility] Comment on above: Performed By: #### I BC #### [facility] ([id number]) [address] [place] [address] CO2 [Moles/Vol] 22 mmol/L Normal 22-32 [facility] Comment on above: Performed By: #### I BC #### [facility] ([id number]) [address] [place] [address] Creatinine [Mass/Vol] 0.97 mg/dL Normal 0.40-1.00 [facility] Comment on above: Result Comment: METH OD TRACEABLE TO IDMS STANDARD Performed By: #### I BC #### [facility] ([id number]) [address] [place] [address] GFR/1.73 sq M.predicted among non-blacks MDRD (S/P/Bld) [Vol rate/Area] 57 mL/min/{1.73_m2} Low >59 [facility] Comment on above: Result Comment: Reported eGFR is based on the CKD-EPI 2020 equation that does not use a race coefficient. Performed By: #### I BC #### [facility] ([id number]) [address] [place] [address] Glucose [Mass/Vol] 143 mg/dL High 65-99 [facility] Comment on above: Performed By: #### I BC #### [facility] ([id number]) [address] [place] [address] Potassium [Moles/Vol] 4.3 mmol/L Normal 3.5-5.0 [facility] Comment on above: Performed By: #### I BC #### [facility] ([id number]) [address] [place] [address] Sodium [Moles/Vol] 136 mmol/L Normal 134-146 [facility] Comment on above: Performed By: #### I BC #### [facility] ([id number]) [address] [place] [address] Urea nitrogen [Mass/Vol] 22 mg/dL Normal 5-27 [facility] Comment on above: Performed By: #### I BC #### [facility] ([id number]) [address] [place] [address] Basic Metabolic Panelon 12-10 Anion gap [Moles/Vol] 7 mmol/L 5 - 15 mmol/L [facility] Calcium [Mass/Vol] 8.4 mg/dL Low 8.5 - 10. 5 mg/dL [facility] Chloride [Moles/Vol] 107 mmol/L 98 - 10 9 mmol/L [facility] CO2 [Moles/Vol] 22 mmol/L 22 - 32 mmol/L [facility] Creatinine [Mass/Vol] 0.97 mg/dL 0.40 - 1.00 mg/dL [facility] Comment on above: METHOD TRACEABLE TO [facility] STANDARD eGFR (CKD-EPI)non-race dependent 57 Low - PINF [facility] Comment on above: Reported eGFR is based on the CKD-EPI 2020 equation that does not use a race coefficient. Glucose [Mass/Vol] 143 mg/dL High 65 - 99 mg/dL [facility] Interpretation and review of laboratory results Abnormal [facility] Potassium [Moles/Vol] 4.3 mmol/L 3.5 - 5.0 mmol/L [facility] Sodium [Moles/Vol] 136 mmol/L 134 - 146 mmol/L [facility] Urea nitrogen [Mass/Vol] 22 mg/dL 5 - 27 mg/dL [facility] CBC AND AUTO DIFFon 01-01-20 ABSOLUTE BASOPHIL 0.0 X10E9/L Normal 0.0-0.2 [facility] Comment on above: Performed By: #### I BC #### [facility] ([id number]) [address] [place] [address] ABSOLUTE NEUTROPHIL 12.4 X10E9/L High 1.5-6.6 [facility] Comment on above: Performed By: #### I BC #### [facility] ([id number]) [address] [place] [address] Basophils/100 WBC (Bld) 0.3 % Normal [facility] Comment on above: Performed By: #### I BC #### [facility] ([id number]) [address] [place] [address] Eosinophils (Bld) [#/Vol] 0.0 10*3/uL Normal 0.0-0.4 [facility] Comment on above: Performed By: #### I BC #### [facility] ([id number]) [address] [place] [address] Eosinophils/100 WBC (Bld) 0.0 % Normal [facility] Comment on above: Performed By: #### I BC #### [facility] ([id number]) [address] [place] [address] Erythrocyte distribution width (RBC) [Ratio] 19.6 % High 11.5-15.0 [facility] Comment on above: Performed By: #### I BC #### [facility] ([id number]) [address] [place] [address] Hematocrit (Bld) [Volume fraction] 25.8 % Low 35-47 [facility] Comment on above: Performed By: #### I BC #### [facility] ([id number]) [address] [place] [address] Hemoglobin (Bld) [Mass/Vol] 8.9 g/dL Low 11.7-15.5 [facility] Comment on above: Performed By: #### I BC #### [facility] ([id number]) [address] [place] [address] Lymphocytes (Bld) [#/Vol] 0.4 10*3/uL Low 1.0-3.5 [facility] Comment on above: Performed By: #### I BC #### [facility] ([id number]) [address] [place] [address] Lymphocytes/100 WBC (Bld) 3.2 % Normal [facility] Comment on above: Performed By: #### I BC #### [facility] ([id number]) [address] [place] [address] MCH (RBC) [Entitic mass] 32.7 pg Normal 27-34 [facility] Comment on above: Performed By: #### I BC #### [facility] ([id number]) [address] [place] [address] MCHC (RBC) [Mass/Vol] 34.4 g/dL Normal 32-36 [facility] Comment on above: Performed By: #### I BC #### [facility] ([id number]) [address] [place] [address] MCV (RBC) [Entitic vol] 95 fL Normal 80-100 [facility] Comment on above: Performed By: #### I BC #### [facility] ([id number]) [address] [place] [address] Monocytes (Bld) [#/Vol] 0.4 10*3/uL Normal 0-0.9 [facility] Comment on above: Performed By: #### I BC #### [facility] ([id number]) [address] [place] [address] Monocytes/100 WBC (Bld) 3.3 % Normal [facility] Comment on above: Performed By: #### I BC #### [facility] ([id number]) [address] [place] [address] Neutrophils/100 WBC (Bld) 93.2 % Normal [facility] Comment on above: Performed By: #### I BC #### [facility] ([id number]) [address] [place] [address] Platelet mean volume (Bld) [Entitic vol] 7.0 fL Normal 7-12 [facility] Comment on above: Performed By: #### I BC #### [facility] ([id number]) [address] [place] [address] Platelets (Bld) [#/Vol] 270 10*3/uL Normal 150-450 [facility] Comment on above: Performed By: #### I BC #### [facility] ([id number]) [address] [place] [address] RBC COUNT 2.72 X10E12/L Low 3.80-5.20 [facility] Comment on above: Performed By: #### I BC #### [facility] ([id number]) [address] [place] [address] WBC (Bld) [#/Vol] 13.3 10*3/uL High 4.0-11.0 [facility] Comment on above: Performed By: #### I BC #### [facility] ([id number]) [address] [place] [address] CBC auto differentialon 12-10 Basophils (Bld) [#/Vol] 0 10*3/uL [facility] Basophils/100 WBC (Bld) 0.3 % [facility] Eosinophils (Bld) [#/Vol] 0 10*3/uL [facility] Eosinophils/100 WBC (Bld) 0 % [facility] Erythrocyte distribution width (RBC) [Ratio] 19.6 % High 11.5 - 15.0 % [facility] Hematocrit (Bld) [Volume fraction] 25.8 % Low 35 - 47 % [facility] Hemoglobin (Bld) [Mass/Vol] 8.9 g/dL Low 11.7 - 15.5 g/dL [facility] Interpretation and review of laboratory results Abnormal [facility] Lymphocytes (Bld) [#/Vol] 0.4 10*3/uL Low [facility] Lymphocytes/100 WBC (Bld) 3.2 % [facility] MCH (RBC) [Entitic mass] 32.7 pg 27 - 34 pg [facility] MCHC (RBC) [Mass/Vol] 34.4 g/dL 32 - 3 6 g/dL [facility] MCV (RBC) [Entitic vol] 95 fL 80 - [address] [facility] Monocytes (Bld) [#/Vol] 0.4 10*3/uL [facility] Monocytes/100 WBC (Bld) 3.3 % [facility] Neutrophils (Bld) [#/Vol] 12.4 10*3/uL High [facility] Neutrophils/100 WBC (Bld) 93.2 % [facility] Platelet mean volume (Bld) [Entitic vol] 7 fL 7 - 12 fL [facility] Platelets (Bld) [#/Vol] 270 10*3/uL [facility] RBC (Bld) [#/Vol] 2.72 10*6/uL Low [facility] WBC corrected for nucl RBC Auto (Bld) [#/Vol] 13.3 High [facility] Lactate (P ibeth) [Moles/Vol]o n 01-01-2024 LACTATE W/REFLEX 0.6 mmol/L Normal 0.4-2.0 [facility] Comment on above: Result Comment: Result did not trigger repeat Lactate, re-order if needed. Performed By: #### I #### [facility] ([id number]) [address] [place] [place] [address] Lactate w/ Reflexon 01-01-20 Lactate (P ibeth) [Moles/Vol] 0.6 mmol/L 0.4 - 2.0 mmol/L [facility] Comment on above: Result did not trigger repeat Lactate, re-order if needed. No Panel Informationon 12-31 [facility] POCT ABG Rapid NA K GLU ICA HHon 01-01-2024 Arterial patency Wrist artery --pre arterial puncture [facility] Base deficit (Bld) [Moles/Vol] 2.6 mmol/L High [facility] Calcium.ionized ISE [Moles/Vol] 5 mg/dL 4.5 - 5.3 mg/dL [facility] CO2 (Bld) [Partial pressure] 39.3 mm[Hg] [facility] Glucose [Mass/Vol] 111 mg/dL High 65 - 99 mg/dL [facility] HCO3 (Bld) [Moles/Vol] 22.7 mmol/L [facility] Hematocrit (Bld) [Volume fraction] 22 % Low 35 - 47 % [facility] Hemoglobin (Bld) [Mass/Vol] 7.3 g/dL Low 11.7 - 15.5 g/dL [facility] Interpretation and review of laboratory results Abnormal [facility] Oxygen (Bld) [Partial pressure] 195 mm[Hg] High [facility] Oxygen/Inspired gas setting [Volume Fraction] Ventilator 60 % [facility] pH (Bld) 7.37 [pH] 7.350 - 7.450 [facility] Potassium [Moles/Vol] 3.9 mmol/L 3.5 - 5.0 mmol/L [facility] Sodium [Moles/Vol] 140 mmol/L 134 - 146 mmol/L [facility] Specimen site Narrative [facility] Specimen type Nom (Spec) Arterial [facility] PROTIME AND INRon 01-01-2024 INR Coag (PPP) [Relative time] 1.2 {INR} High 0.8-1.1 [facility] Comment on above: Performed By: #### I BC #### [facility] ([id number]) [address] [place] [address] PT Coag (PPP) [Time] 13.7 s High 9.8-13.2 [facility] Comment on above: Performed By: #### I BC #### [facility] ([id number]) [address] [place] [address] Protime & INRon 01-01-2024 INR Coag (PPP) [Relative time] 1.2 {INR} High [facility] Interpretation and review of laboratory results Abnormal [facility] PT Coag (PPP) [Time] 13.7 s High [facility] RAPID CARDIAC W/ NAon 2023 AKILAH'S TEST Normal [facility] Comment on above: Performed By: #### I BC #### [facility] ([id number]) [address] [facility] [place] [address] BASE,DEFICIT 2.6 MMOL/L High 0.0-2.0 [facility] Comment on above: Performed By: #### I BC #### [facility] ([id number]) [address] [place] [address] Body temperature 98.6 [degF] Normal 37.[address] [facility] Comment on above: Performed By: #### I BC #### [facility] ([id number]) [address] [place] [address] Glucose [Mass/Vol] 111 mg/dL High 65-99 [facility] Comment on above: Performed By: #### I BC #### [facility] ([id number]) [address] [place] [address] HCO3 (Bld) [Moles/Vol] 22.7 mmol/L Normal 22-26 [facility] Comment on above: Performed By: #### I BC #### [facility] ([id number]) [address] [place] [address] Hematocrit (Bld) [Volume fraction] 22 % Low 35-47 [facility] Comment on above: Performed By: #### I BC #### [facility] ([id number]) [address] [place] [address] Hemoglobin (Bld) [Mass/Vol] 7.3 g/dL Low 11.7-15.5 [facility] Comment on above: Performed By: #### I BC #### [facility] ([id number]) [address] [place] [address] INSP. O2 CONC. 60 % Normal [facility] Comment on above: Performed By: #### I BC #### [facility] ([id number]) [address] [place] [address] IONIZED CALCIUM 5.0 mg/dL Normal 4.5-5.3 [facility] Comment on above: Performed By: #### I BC #### [facility] ([id number]) [address] [place] [address] Oxygen (Bld) [Partial pressure] 195 mm[Hg] High 80-100 [facility] Comment on above: Performed By: #### I BC #### [facility] ([id number]) [address] [place] [address] Oxygen saturation in Blood 100.3 % Normal >90 [facility] Comment on above: Performed By: #### I BC #### [facility] ([id number]) [address] [place] [address] PCO2 39.3 MMHG Normal 35-45 [facility] Comment on above: Performed By: #### I BC #### [facility] ([id number]) [address] [place] [address] pH (Bld) 7.370 [pH] Normal 7.350-7.45 0 [facility] Comment on above: Performed By: #### I BC #### [facility] ([id number]) [address] [place] [address] Potassium [Moles/Vol] 3.9 mmol/L Normal 3.5-5.0 [facility] Comment on above: Performed By: #### I BC #### [facility] ([id number]) [address] [place] [address] SAMPLE SITE SABA Normal [facility] Comment on above: Performed By: #### I BC #### [facility] ([id number]) [address] [place] [address] SAMPLE TYPE Arterial Normal [facility] Comment on above: Performed By: #### I BC #### [facility] ([id number]) [address] [facility] [place] [address] Sodium [Moles/Vol] 140 mmol/L Normal 134-146 [facility] Comment on above: Performed By: #### I BC #### [facility] ([id number]) [address] [facility] [place] [address] RFA Guidance for vascular ac cess of Vesselon 01-01-2024 Please refer to the vascular OP note for a dictation on this exam. [facility] APTTon 12-31-2023 aPTT Coag (PPP) [Time] 36 s Pr [facility] BASIC METABOLIC PANLon 12-30 Anion gap [Moles/Vol] 13 mmol/L Normal 5-15 [facility] Comment on above: Performed By: #### C BCA, PINR, 19323-8, BMP #### [facility] ([id number]) [address], [address] [place] [address] Calcium [Mass/Vol] 9.9 mg/dL Normal 8.5-10.5 [facility] Comment on above: Performed By: #### C BCA, PINR, 13242-9, BMP #### [facility] ([id number]) [address], [address] [place] [address] Chloride [Moles/Vol] 104 mmol/L Normal 98-109 [facility] Comment on above: Performed By: #### C BCA, PINR, 17933-1, BMP #### [facility] ([id number]) [address] [place] [address] CO2 [Moles/Vol] 22 mmol/L Normal 22-32 [facility] Comment on above: Performed By: #### C BCA, PINR, 32108-3, BMP #### [facility] ([id number]) [address] [place] [address] Creatinine [Mass/Vol] 1.18 mg/dL High 0.40-1.00 [facility] Comment on above: Result Comment: METH OD TRACEABLE TO IDMS STANDARD Performed By: #### C ROSA LAKHANI, 87439-3, BMP #### [facility] ([id number]) [address], [address] [place] [address] GFR/1.73 sq M.predicted among non-blacks MDRD (S/P/Bld) [Vol rate/Area] 45 mL/min/{1.73_m2} Low >59 [facility] Comment on above: Result Comment: Reported eGFR is based on the CKD-EPI 2020 equation that does not use a race coefficient. Performed By: #### C ROSA LAKHANI, 22777-6, BMP #### [facility] ([id number]) [address], [address] [place] [address] Glucose [Mass/Vol] 85 mg/dL Normal 65-99 [facility] Comment on above: Performed By: #### C ROSA LAKHANI, 08596-8, BMP #### [facility] ([id number]) [address], [address] [place] [address] Potassium [Moles/Vol] 4.2 mmol/L Normal 3.5-5.0 [facility] Comment on above: Performed By: #### C LESVIA PINDoug, 49454-5, BMP #### [facility] ([id number]) [address] [place] [address] Sodium [Moles/Vol] 139 mmol/L Normal 134-146 [facility] Comment on above: Performed By: #### C LESVIA PINR, 78357-7, BMP #### [facility] ([id number]) [address] [place] [address] Urea nitrogen [Mass/Vol] 25 mg/dL Normal 5-27 [facility] Comment on above: Performed By: #### C LESVIA PINR, 99437-4, BMP #### [facility] ([id number]) [address] [place] [address] Basic Metabolic Panelon 12-10 Anion gap [Moles/Vol] 13 mmol/L 5 - 15 mmol/L [facility] Calcium [Mass/Vol] 9.9 mg/dL 8.5 - 10. 5 mg/dL [facility] Chloride [Moles/Vol] 104 mmol/L 98 - 10 9 mmol/L [facility] CO2 [Moles/Vol] 22 mmol/L 22 - 32 mmol/L [facility] Creatinine [Mass/Vol] 1.18 mg/dL High 0.40 - 1.00 mg/dL [facility] Comment on above: METHOD TRACEABLE TO [facility] STANDARD eGFR (CKD-EPI)non-race dependent 45 Low - PINF [facility] Comment on above: Reported eGFR is based on the CKD-EPI 2020 equation that does not use a race coefficient. Glucose [Mass/Vol] 85 mg/dL 65 - 99 mg/dL [facility] Interpretation and review of laboratory results Abnormal [facility] Potassium [Moles/Vol] 4.2 mmol/L 3.5 - 5.0 mmol/L [facility] Sodium [Moles/Vol] 139 mmol/L 134 - 146 mmol/L [facility] Urea nitrogen [Mass/Vol] 25 mg/dL 5 - 27 mg/dL [facility] CBC AND AUTO DIFFon 12-31-19 ABSOLUTE BASOPHIL 0.0 X10E9/L Normal 0.0-0.2 [facility] Comment on above: Performed By: #### C BCA, PINR, 45264-9, BMP #### [facility] ([id number]) [address], [address] [place] [address] ABSOLUTE NEUTROPHIL 5.3 X10E9/L Normal 1.5-6.6 [facility] Comment on above: Performed By: #### C BCA, PINR, 34920-3, BMP #### [facility] ([id number]) [address], [address] [place] [address] Basophils/100 WBC (Bld) 0.7 % Normal [facility] Comment on above: Performed By: #### C LESVIA PINR, 98564-8, BMP #### [facility] ([id number]) [address], [address] [place] [address] Eosinophils (Bld) [#/Vol] 0.1 10*3/uL Normal 0.0-0.4 [facility] Comment on above: Performed By: #### C LESVIA, PINR, 00632-6, BMP #### [facility] ([id number]) [address], [address] [place] [address] Eosinophils/100 WBC (Bld) 0.9 % Normal [facility] Comment on above: Performed By: #### C LESVIA, PINR, 02190-9, BMP #### [facility] ([id number]) [address], [address] [place] [address] Erythrocyte distribution width (RBC) [Ratio] 16.7 % High 11.5-15.0 [facility] Comment on above: Performed By: #### C LESVIA, PINR, 18313-1, BMP #### [facility] ([id number]) [address], [address] [place] [address] Hematocrit (Bld) [Volume fraction] 29.8 % Low 35-47 [facility] Comment on above: Performed By: #### C LESVIA, PINR, 31740-3, BMP #### [facility] ([id number]) [address] [place] [address] Hemoglobin (Bld) [Mass/Vol] 10.3 g/dL Low 11.7-15.5 [facility] Comment on above: Performed By: #### C LESVIA, PINR, 24469-6, BMP #### [facility] ([id number]) [address] [place] [address] Lymphocytes (Bld) [#/Vol] 1.3 10*3/uL Normal 1.0-3.5 [facility] Comment on above: Performed By: #### C LESVIA, PINR, 35629-4, BMP #### [facility] ([id number]) [address] [place] [address] Lymphocytes/100 WBC (Bld) 17.3 % Normal [facility] Comment on above: Performed By: #### C LESVIA, PINR, 55809-9, BMP #### [facility] ([id number]) [address] [place] [address] MCH (RBC) [Entitic mass] 34.6 pg High 27-34 [facility] Comment on above: Performed By: #### Jeny LAKHANI, PINR, 96435-5, BMP #### [facility] ([id number]) [address] [place] [address] MCHC (RBC) [Mass/Vol] 34.5 g/dL Normal 32-36 [facility] Comment on above: Performed By: #### C LESVIA, PINR, 39230-6, BMP #### [facility] ([id number]) [address] [place] [address] MCV (RBC) [Entitic vol] 100 fL Normal 80-100 [facility] Comment on above: Performed By: #### C LESVIA, PINR, 44095-1, BMP #### [facility] ([id number]) [address], [address] [place] [address] Monocytes (Bld) [#/Vol] 0.8 10*3/uL Normal 0-0.9 [facility] Comment on above: Performed By: #### Jeny LAKHANI, PINR, 97405-4, BMP #### [facility] ([id number]) [address], [address] [place] [address] Monocytes/100 WBC (Bld) 10.3 % Normal [facility] Comment on above: Performed By: #### C LESVIA, PINR, 73200-9, BMP #### [facility] ([id number]) [address], [address] [place] [address] Neutrophils/100 WBC (Bld) 70.8 % Normal [facility] Comment on above: Performed By: #### C LESVIA, PINR, 20192-7, BMP #### [facility] ([id number]) [address] [place] [address] Platelet mean volume (Bld) [Entitic vol] 7.6 fL Normal 7-12 [facility] Comment on above: Performed By: #### Jeny LAKHANI, PINR, 26165-0, BMP #### [facility] ([id number]) [address] [place] [address] Platelets (Bld) [#/Vol] 387 10*3/uL Normal 150-450 [facility] Comment on above: Performed By: #### Jeny LAKHANI, PINR, 99058-3, BMP #### [facility] ([id number]) [address] [place] [address] RBC COUNT 2.97 X10E12/L Low 3.80-5.20 [facility] Comment on above: Performed By: #### C LESVIA, PINR, 76059-6, BMP #### [facility] ([id number]) [address] [place] [address] WBC (Bld) [#/Vol] 7.5 10*3/uL Normal 4.0-11.0 [facility] Comment on above: Performed By: #### C LESVIA, PINR, 92663-4, BMP #### [facility] ([id number]) [address] [place] [address] CBC auto differentialon 12-10 Basophils (Bld) [#/Vol] [...] System RBC (Bld) [#/Vol] 2.97 10*6/uL Low [facility] WBC corrected for nucl RBC Auto (Bld) [#/Vol] 7.5 [facility] No Panel Informationon 12-30 [facility] PROTIME AND INRon 12-31-2023 INR Coag (PPP) [Relative time] 1.1 {INR} Normal 0.8-1.1 [facility] Comment on above: Performed By: #### C LESVIA PINR, 12013-7, BMP #### [facility] ([id number]) [address] [place] [address] PT Coag (PPP) [Time] 12.5 s Normal 9.8-13.2 [facility] Comment on above: Performed By: #### C LESVIA PINR, 17201-4, BMP #### [facility] ([id number]) [address] [place] [address] Protime-INRon 12-31-2023 INR Coag (PPP) [Relative time] 1.1 {INR} [facility] PT Coag (PPP) [Time] 12.5 s [facility] Type and screen(includes ind irect chi)on 12-31-2023 ABO A [facility] Rh Nom (Bld) Positive [facility] URINALYSISon 12-31-2023 Bilirubin Ql (U) Negative Normal NEG [facility] Comment on above: Performed By: #### U A #### [facility] ([id number]) [address] [place] [address] BLOOD/HGB Negative Normal NEG [facility] Comment on above: Performed By: #### U A #### [facility] ([id number]) [address] [place] [address] Color (U) YELLOW Normal YELLOW [facility] Comment on above: Performed By: #### U A #### [facility] ([id number]) [address] [place] [address] Glucose Ql (U) Negative Normal NEG [facility] Comment on above: Performed By: #### U A #### [facility] ([id number]) [address] [place] [address] Ketones Ql (U) Negative Normal NEG [facility] Comment on above: Performed By: #### U A #### [facility] ([id number]) [address] [place] [address] Leukocyte esterase Test strip Ql (U) MODERATE Abnormal NEG [facility] Comment on above: Performed By: #### U A #### [facility] ([id number]) [address] [place] [address] MUCOUS PRESENT Abnormal NONE [facility] Comment on above: Performed By: #### U A #### [facility] ([id number]) [address] [place] [address] Nitrite Ql (U) Positive Abnormal NEG [facility] Comment on above: Performed By: #### U A #### [facility] ([id number]) [address] [place] [address] pH (U) 6.0 [pH] Normal 5.0-8.5 [facility] Comment on above: Performed By: #### U A #### [facility] ([id number]) [address] [place] [address] Protein Ql (U) Negative Normal NEG [facility] Comment on above: Performed By: #### U A #### [facility] ([id number]) [address] [place] [address] R.B.CELLS <1 Normal 0-5 [facility] Comment on above: Performed By: #### U A #### [facility] ([id number]) [address] [place] [address] Specific gravity (U) [Rel density] 1.016 Normal 1.003-1.03 5 [facility] Comment on above: Performed By: #### U A #### [facility] ([id number]) [address], [address] [place] [address] SQUAMOUS EPITHELIUM 1 /hpf Normal 0-5 [facility] Comment on above: Performed By: #### U A #### [facility] ([id number]) [address] [facility] [place] [address] TURBIDITY CLEAR Normal CLEAR [facility] Comment on above: Performed By: #### U A #### [facility] ([id number]) [address] [place] [address], [address] [address] Urobilinogen (U) [Mass/Vol] mg/dL Normal <1.1 [facility] Comment on above: Performed By: #### U A #### [facility] ([id number]) [address] [facility] [place] [address] W.B.CELLS 30 /hpf High 0-5 [facility] Comment on above: Performed By: #### U A #### [facility] ([id number]) [facility], [address] [address] Urinalysison 12-31-2023 Bilirubin Ql (U) Negative Negative^N egative [facility] Color (U) YELLOW YELLOW^YEL LOW [facility] Epithelial cells Auto (Urine sed) [#/Area] 1 [facility] Glucose (U) [Mass/Vol] Negative Negat judah^N egative mg/dL [facility] Hemoglobin Auto test strip Ql (U) Negative Negative^N egative [facility] Interpretation and review of laboratory results Abnormal [facility] Ketones (U) [Mass/Vol] Negative Negat judah^N egative mg/dL [facility] Leukocyte esterase Auto test strip Ql (U) MODERATE Abnormal Negative^N egative [facility] Mucus Ql (Urine sed) PRESENT Abnormal NONE^NONE [facility] Nitrite Auto test strip Ql (U) Positive Abnormal Negative^N egative [facility] pH (U) 6 [pH] 5.0 - 8.5 [facility] Protein (U) [Mass/Vol] Negative Negat judah^N egative mg/dL [facility] RBC Auto (Urine sed) [#/Area] [facility] Specific gravity Refractometry automated (U) [Rel density] 1.016 1.003 - 1.035 [facility] Turbidity Ql (U) CLEAR CLEAR^EMMETT R [facility] Urobilinogen Qn (U) NINF [facility] WBC Auto (Urine sed) [#/Area] 30 High [facility] aPTT Coag (PPP) [Time]on aPTT Coag (Bld) [Time] 36 s Normal 26-37 Pr [facility] Comment on above: Performed By: #### C BCA, PINR, 54515-7, BMP #### [facility] ([id number]) [address] [facility] [address] [place] [address] BASIC METABOLIC PANLon 12-21 Anion gap [Moles/Vol] 8 mmol/L Normal 5-15 [facility] Comment on above: Performed By: #### P INR, 58092-4 #### [facility] ([id number]) [address] [place] [address] #### CBC, BMP #### [facility] ([id number]) [address] [facility] [place] [address] Calcium [Mass/Vol] 9.5 mg/dL Normal 8.5-10.5 [facility] Comment on above: Performed By: #### P INR, 07638-1 #### [facility] ([id number]) [address] [place] [address] #### CBC, BMP #### [facility] ([id number]) [address] [facility] [address] [place] [address] Chloride [Moles/Vol] 108 mmol/L Normal 98-109 [facility] Comment on above: Performed By: #### P INR, 22578-7 #### [facility] ([id number]) [address] [place] [address] #### CBC, BMP #### [facility] ([id number]) [address] [place] [address] CO2 [Moles/Vol] 24 mmol/L Normal 22-32 [facility] Comment on above: Performed By: #### P INR, 18655-4 #### [facility] ([id number]) [address] [place] [address] #### CBC, BMP #### [facility] ([id number]) [address] [place] [address] Creatinine [Mass/Vol] 1.26 mg/dL High 0.40-1.00 [facility] Comment on above: Result Comment: METH OD TRACEABLE TO IDMS STANDARD Performed By: #### P INR, 62041-6 #### [facility] ([id number]) [address] [place] [address] #### CBC, BMP #### [facility] ([id number]) [address] [facility] [address] [place] [address] GFR/1.73 sq M.predicted among non-blacks MDRD (S/P/Bld) [Vol rate/Area] 41 mL/min/{1.73_m2} Low >59 [facility] Comment on above: Result Comment: Reported eGFR is based on the CKD-EPI 2020 equation that does not use a race coefficient. Performed By: #### P INR, 76960-9 #### [facility] ([id number]) [address] [place] [address] #### CBC, BMP #### [facility] ([id number]) [address] [place] [address] Glucose [Mass/Vol] 96 mg/dL Normal 65-99 [facility] Comment on above: Performed By: #### P INR, 46038-2 #### [facility] ([id number]) [address] [place] [address] #### CBC, BMP #### [facility] ([id number]) [address] [place] [address] Potassium [Moles/Vol] 4.9 mmol/L Normal 3.5-5.0 [facility] Comment on above: Performed By: #### P INR, 41362-6 #### [facility] ([id number]) [address] [place] [address] #### CBC, BMP #### [facility] ([id number]) [address] [place] [address] Sodium [Moles/Vol] 140 mmol/L Normal 134-146 [facility] Comment on above: Performed By: #### P INR, 67734-9 #### [facility] ([id number]) [address] [place] [address] #### CBC, BMP #### [facility] ([id number]) [address] [place] [address] Urea nitrogen [Mass/Vol] 28 mg/dL High 5-27 [facility] Comment on above: Performed By: #### P INR, 12099-0 #### [facility] ([id number]) [address] [place] [address] #### CBC, BMP #### [facility] ([id number]) [address] [place] [address] COMPLETE BLOOD COUNTon 12-21 Erythrocyte distribution width (RBC) [Ratio] 16.8 % High 11.5-15.0 [facility] Comment on above: Performed By: #### P INR, 11464-7 #### [facility] ([id number]) [address] [place] [address] #### CBC, BMP #### [facility] ([id number]) [address] [place] [address] Hematocrit (Bld) [Volume fraction] 27.2 % Low 35-47 [facility] Comment on above: Performed By: #### P INR, 10626-2 #### [facility] ([id number]) [address] [place] [address] #### CBC, BMP #### [facility] ([id number]) [address] [place] [address] Hemoglobin (Bld) [Mass/Vol] 9.3 g/dL Low 11.7-15.5 [facility] Comment on above: Performed By: #### P INR, 41180-0 #### [facility] ([id number]) [address] [place] [address] #### CBC, BMP #### [facility] ([id number]) [address] [place] [address] MCH (RBC) [Entitic mass] 34.7 pg High 27-34 [facility] Comment on above: Performed By: #### P INR, 03538-8 #### [facility] ([id number]) [address] [place] [address] #### CBC, BMP #### [facility] ([id number]) [address] [place] [address] MCHC (RBC) [Mass/Vol] 34.1 g/dL Normal 32-36 [facility] Comment on above: Performed By: #### P INR, 00952-7 #### [facility] ([id number]) [address] [place] [address] #### CBC, BMP #### [facility] ([id number]) [address] [place] [address] MCV (RBC) [Entitic vol] 102 fL High 80-100 [facility] Comment on above: Performed By: #### P INR, 04728-8 #### [facility] ([id number]) [address] [place] [address] #### CBC, BMP #### [facility] ([id number]) [address] [place] [address] Platelet mean volume (Bld) [Entitic vol] 8.2 fL Normal 7-12 [facility] Comment on above: Performed By: #### P INR, 57058-0 #### [facility] ([id number]) [address] [place] [address] #### CBC, BMP #### [facility] ([id number]) [address] [place] [address] Platelets (Bld) [#/Vol] 288 10*3/uL Normal 150-450 [facility] Comment on above: Performed By: #### P INR, 18827-5 #### [facility] ([id number]) [address] [place] [address] #### CBC, BMP #### [facility] ([id number]) [address] [place] [address] RBC COUNT 2.67 X10E12/L Low 3.80-5.20 [facility] Comment on above: Performed By: #### P INR, 06691-2 #### [facility] ([id number]) [address] [place] [address] #### CBC, BMP #### [facility] ([id number]) [address] [facility] [address] [place] [address] WBC (Bld) [#/Vol] 8.7 10*3/uL Normal 4.0-11.0 [facility] Comment on above: Performed By: #### P INR, 83066-2 #### [facility] ([id number]) [address] [place] [address]31 #### CBC, BMP #### [facility] ([id number]) [address] [facility] [place] [address] PROTIME AND INRon 12-22-2023 INR Coag (PPP) [Relative time] 1.0 {INR} Normal 0.8-1.1 [facility] Comment on above: Performed By: #### P INR, 14023-7 #### [facility] ([id number]) [address] [place] [address] #### CBC, BMP #### [facility] ([id number]) [address] [facility] [place] [address] PT Coag (PPP) [Time] 12.0 s Normal 9.8-13.2 [facility] Comment on above: Result Comment: NEW REFERENCE RANGE Performed By: #### P INR, 77273-2 #### [facility] ([id number]) [address] [place] [address] #### CBC, BMP #### [facility] ([id number]) [address] [facility] [address] [place] [address] aPTT Coag (PPP) [Time]on aPTT Coag (Bld) [Time] 28 s Normal 26-37 Pr [facility] Comment on above: Result Comment: NEW REFERENCE RANGE Performed By: #### P INR, 59684-7 #### [facility] ([id number]) [address] [facility], [place] [address] #### CBC, BMP #### [facility] ([id number]) [address] [facility] [address] [place] [address] XR Hip - left 3 Viewson 12-09 [...] dislocation. Impression: Unremarkable left total hip arthroplasty. 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 She said Sage's BP is still all over the place. [...] on her numbers. She verbalized understanding. Normal [facility] XR Hip - left 3 Viewson Radiology Study observation (narrative) [facility] Frequent Browser 36on 11-30-2023 36 Please have her increase [...] just monitor with routine ECHOs. Thanks! Normal [place] [facility] BASIC METABOLIC PANLon 11-18 Anion gap [Moles/Vol] 9 mmol/L Normal 5-15 [facility] Comment on above: Performed By: #### C TANYA, BMP #### [facility] ([id number]) [address], [address] [place] [address] Calcium [Mass/Vol] 9.3 mg/dL Normal 8.5-10.5 [facility] Comment on above: Performed By: #### C TANYA, BMP #### [facility] ([id number]) [address], [address] [place] [address] Chloride [Moles/Vol] 106 mmol/L Normal 98-109 [facility] Comment on above: Performed By: #### Jeny MARTÍNEZ, BMP #### [facility] ([id number]) [address], [address] [place] [address] CO2 [Moles/Vol] 22 mmol/L Normal 22-32 [facility] Comment on above: Performed By: #### C TANYA, BMP #### [facility] ([id number]) [address], [address] [place] [address] Creatinine [Mass/Vol] 1.14 mg/dL High 0.40-1.00 [facility] Comment on above: Result Comment: METH OD TRACEABLE TO IDMS STANDARD Performed By: #### Jeny MARTÍNEZ, BMP #### [facility] ([id number]) [address], [address] [place] [address] GFR/1.73 sq M.predicted among non-blacks MDRD (S/P/Bld) [Vol rate/Area] 47 mL/min/{1.73_m2} Low >59 [facility] Comment on above: Result Comment: Reported eGFR is based on the CKD-EPI 2020 equation that does not use a race coefficient. Performed By: #### C TANYA, BMP #### [facility] ([id number]) [address], [address] [place] [address] Glucose [Mass/Vol] 125 mg/dL High 65-99 [facility] Comment on above: Performed By: #### C TANYA, BMP #### [facility] ([id number]) [address], [address] [place] [address] Potassium [Moles/Vol] 5.7 mmol/L High 3.5-5.0 [facility] Comment on above: Performed By: #### C TANYA, BMP #### [facility] ([id number]) [address] [place] [address] Sodium [Moles/Vol] 137 mmol/L Normal 134-146 [facility] Comment on above: Performed By: #### C TANYA, BMP #### [facility] ([id number]) [address], [address] [place] [address] Urea nitrogen [Mass/Vol] 32 mg/dL High 5-27 [facility] Comment on above: Performed By: #### C TANYA, BMP #### [facility] ([id number]) [address], [address] [place] [address] COMPLETE BLOOD COUNTon 11-18 Erythrocyte distribution width (RBC) [Ratio] 15.0 % Normal 11.5-15.0 [facility] Comment on above: Performed By: #### C TANYA, BMP #### [facility] ([id number]) [address], [address] [place] [address] Hematocrit (Bld) [Volume fraction] 33.0 % Low 35-47 [facility] Comment on above: Performed By: #### C TANYA, BMP #### [facility] ([id number]) [address], [address] [place] [address] Hemoglobin (Bld) [Mass/Vol] 11.6 g/dL Low 11.7-15.5 [facility] Comment on above: Performed By: #### C TANYA, BMP #### [facility] ([id number]) [address], [address] [place] [address] MCH (RBC) [Entitic mass] 34.4 pg High 27-34 [facility] Comment on above: Performed By: #### C TANYA, BMP #### [facility] ([id number]) [address] [place] [address] MCHC (RBC) [Mass/Vol] 35.1 g/dL Normal 32-36 [facility] Comment on above: Performed By: #### C TANYA, BMP #### [facility] ([id number]) [address] [place] [address] MCV (RBC) [Entitic vol] 98 fL Normal 80-100 [facility] Comment on above: Performed By: #### C TANYA, BMP #### [facility] ([id number]) [address], [address] [place] [address] Platelet mean volume (Bld) [Entitic vol] 8.4 fL Normal 7-12 [facility] Comment on above: Performed By: #### C TANYA, BMP #### [facility] ([id number]) [address], [address] [place] [address] Platelets (Bld) [#/Vol] 227 10*3/uL Normal 150-450 [facility] Comment on above: Performed By: #### C TANYA, BMP #### [facility] ([id number]) [address] [place] [address] RBC COUNT 3.36 X10E12/L Low 3.80-5.20 [facility] Comment on above: Performed By: #### C TANYA, BMP #### [facility] ([id number]) [address], [address] [place] [address] WBC (Bld) [#/Vol] 6.1 10*3/uL Normal 4.0-11.0 [facility] Comment on above: Performed By: #### C BC, BMP #### [facility] ([id number]) [address] [facility] [place] [address] POC BUN CREATon 11-18-2023 Creatinine [Mass/Vol] 1.3 mg/dL High 0.4-1.0 [facility] Comment on above: Result Comment: METH OD TRACEABLE TO IDMS STANDARD Performed By: #### I BC #### [facility] ([id number]) [address] [place] [address] GFR/1.73 sq M.predicted among non-blacks MDRD (S/P/Bld) [Vol rate/Area] 40 mL/min/{1.73_m2} Low >59 [facility] Comment on above: Result Comment: Reported eGFR is based on the CKD-EPI 2020 equation that does not use a race coefficient. Performed By: #### I BC #### [facility] ([id number]) [address] [place] [address] Urea nitrogen [Mass/Vol] 32 mg/dL High 6-27 [facility] Comment on above: Performed By: #### I BC #### [facility] ([id number]) [address] [place] [address] RAPID CARDIACon 11-18-2023 AKILAH'S TEST Normal [facility] Comment on above: Performed By: #### A FAB5 #### [facility] ([id number]) [address] [place] [address] BASE,DEFICIT 1.2 MMOL/L Normal 0.0-2.0 [facility] Comment on above: Performed By: #### A FAB5 #### [facility] ([id number]) [address] [place] [address] Body temperature 98.6 [degF] Normal 37.[address] [facility] Comment on above: Performed By: #### A FAB5 #### [facility] ([id number]) [address] [place] [address] Glucose [Mass/Vol] 96 mg/dL Normal 65-99 [facility] Comment on above: Performed By: #### A FAB5 #### [facility] ([id number]) [address] [place] [address] HCO3 (Bld) [Moles/Vol] 23.5 mmol/L Normal 22-26 [facility] Comment on above: Performed By: #### A FAB5 #### [facility] ([id number]) [address] [place] [address] Hematocrit (Bld) [Volume fraction] 31 % Low 35-47 [facility] Comment on above: Performed By: #### A FAB5 #### [facility] ([id number]) [address] [place] [address] Hemoglobin (Bld) [Mass/Vol] 10.2 g/dL Low 11.7-15.5 [facility] Comment on above: Performed By: #### A FAB5 #### [facility] ([id number]) [address] [place] [address] INSP. O2 CONC. 100 % Normal [facility] Comment on above: Performed By: #### A FAB5 #### [facility] ([id number]) [address] [place] [address] IONIZED CALCIUM 5.2 mg/dL Normal 4.5-5.3 [facility] Comment on above: Performed By: #### A FAB5 #### [facility] ([id number]) [address] [place] [address] Oxygen (Bld) [Partial pressure] 270 mm[Hg] High 80-100 [facility] Comment on above: Performed By: #### A FAB5 #### [facility] ([id number]) [address] [place] [address] Oxygen saturation in Blood 100.2 % Normal >90 [facility] Comment on above: Performed By: #### A FAB5 #### [facility] ([id number]) [address] [place] [address] PCO2 37.2 MMHG Normal 35-45 [facility] Comment on above: Performed By: #### A FAB5 #### [facility] ([id number]) [address] [place] [address] pH (Bld) 7.408 [pH] Normal 7.350-7.45 0 [facility] Comment on above: Performed By: #### A FAB5 #### [facility] ([id number]) [address] [place] [address] Potassium [Moles/Vol] 4.3 mmol/L Normal 3.5-5.0 [facility] Comment on above: Performed By: #### A FAB5 #### [facility] ([id number]) [address] [place] [address] SAMPLE SITE SABA Normal [facility] Comment on above: Performed By: #### A FAB5 #### [facility] ([id number]) [address] [place] [address] SAMPLE TYPE Arterial Normal [facility] Comment on above: Performed By: #### A FAB5 #### [facility] ([id number]) [address] [place] [address] Office Visiton 11-09-2023 Follow-up visit [id number] Sage Hsu 1935 F Date Provider Department Center 11/09/2023 [facility] Family History Problem Relation Age of Onset Aneurysm Mother Heart attack Father Family Status - Relation Status Age at Mother Father Level of Service:97521 [place] OFFICE/OUTPATIENT ESTABLISHED MOD MDM 30 MIN Reason for Visit and Comments: Pre-op Exam [543496] Hypertension [772439] Coronary Artery Disease [187] Normal [facility] Telephoneon 11-09-2023 Telephone [id number] Sage Hsu 1935 F Date Provider Department Center 11/09/2023 NATALIYA ERNST [facility] Family History Problem Relation Age of Onset Aneurysm Mother Heart attack Father Family Status - Relation Status Age at Mother Father Normal [facility] POC BUN CREATon 11-05-2023 Creatinine [Mass/Vol] 1.6 mg/dL High 0.4-1.0 [facility] Comment on above: Result Comment: METH OD TRACEABLE TO IDMS STANDARD Performed By: #### I BC #### [facility] ([id number]) [address] [place] [address] GFR/1.73 sq M.predicted among non-blacks MDRD (S/P/Bld) [Vol rate/Area] 31 mL/min/{1.73_m2} Low >59 [facility] Comment on above: Result Comment: Reported eGFR is based on the CKD-EPI 2020 equation that does not use a race coefficient. Performed By: #### I BC #### [facility] ([id number]) [address] [place] [address] Urea nitrogen [Mass/Vol] 25 mg/dL Normal - [facility] Comment on above: Performed By: #### I BC #### [facility] ([id number]) [address] [place] [address] BASIC METABOLIC PANLon 10-26 Anion gap [Moles/Vol] 11 mmol/L Normal 5-15 [facility] Comment on above: Performed By: #### P INR, 81239-9 #### [facility] ([id number]) [address] [facility], [place] [address] #### CBCA, BMP #### [facility] ([id number]) [address] [facility], [address] [place] [address] Calcium [Mass/Vol] 9.9 mg/dL Normal 8.5-10.5 [facility] Comment on above: Performed By: #### P INR, 31440-5 #### [facility] ([id number]) [address] [place] [address] #### CBCA, BMP #### [facility] ([id number]) [address] [place] [address] Chloride [Moles/Vol] 103 mmol/L Normal 98-109 [facility] Comment on above: Performed By: #### P INR, 62299-9 #### [facility] ([id number]) [address] [place] [address] #### CBCA, BMP #### [facility] ([id number]) [address] [facility] [address] [place] [address] CO2 [Moles/Vol] 27 mmol/L Normal 22-32 [facility] Comment on above: Performed By: #### P INR, 70285-9 #### [facility] ([id number]) [address] [place] [address] #### CBCA, BMP #### [facility] ([id number]) [address] [place] [address] Creatinine [Mass/Vol] 1.15 mg/dL High 0.40-1.00 [facility] Comment on above: Result Comment: METH OD TRACEABLE TO IDMS STANDARD Performed By: #### P INR, 63968-8 #### [facility] ([id number]) [address] [place] [address] #### CBCA, BMP #### [facility] ([id number]) [address] [place] [address] GFR/1.73 sq M.predicted among non-blacks MDRD (S/P/Bld) [Vol rate/Area] 46 mL/min/{1.73_m2} Low >59 [facility] Comment on above: Result Comment: Reported eGFR is based on the CKD-EPI 2020 equation that does not use a race coefficient. Performed By: #### P INR, 24576-8 #### [facility] ([id number]) [address] [place] [address] #### CBCA, BMP #### [facility] ([id number]) [address] [place] [address] Glucose [Mass/Vol] 70 mg/dL Normal 65-99 [facility] Comment on above: Performed By: #### P INR, 13047-3 #### [facility] ([id number]) [address] [place] [address] #### CBCA, BMP #### [facility] ([id number]) [address] [place] [address] Potassium [Moles/Vol] 4.1 mmol/L Normal 3.5-5.0 [facility] Comment on above: Performed By: #### P INR, 83464-6 #### [facility] ([id number]) [address] [place] [address] #### CBCA, BMP #### [facility] ([id number]) [address] [place] [address] Sodium [Moles/Vol] 141 mmol/L Normal 134-146 [facility] Comment on above: Performed By: #### P INR, 79732-0 #### [facility] ([id number]) [address] [place] [address] #### CBCA, BMP #### [facility] ([id number]) [address] [place] [address] Urea nitrogen [Mass/Vol] 24 mg/dL Normal 5-27 [facility] Comment on above: Performed By: #### P INR, 65827-9 #### [facility] ([id number]) [address] [place] [address] #### CBCA, BMP #### [facility] ([id number]) [address], [facility] [address] [place] [address] CBC AND AUTO DIFFon 10-27-19 24 ABSOLUTE BASOPHIL 0.0 X10E9/L Normal 0.0-0.2 [facility] Comment on above: Performed By: #### P INR, 15732-4 #### [facility] ([id number]) [address] [place] [address] #### CBCA, BMP #### [facility] ([id number]) [address] [address] [place] [address] ABSOLUTE NEUTROPHIL 5.5 X10E9/L Normal 1.5-6.6 [facility] Comment on above: Performed By: #### P INR, 63688-8 #### [facility] ([id number]) [address] [place] [address] #### CBCA, BMP #### [facility] ([id number]) [address] [address] [place] [address] Basophils/100 WBC (Bld) 0.4 % Normal [facility] Comment on above: Performed By: #### P INR, 51997-5 #### [facility] ([id number]) [address] [place] [address] #### CBCA, BMP #### [facility] ([id number]) [address] [address] [place] [address] Eosinophils (Bld) [#/Vol] 0.0 10*3/uL Normal 0.0-0.4 [facility] Comment on above: Performed By: #### P INR, 28637-3 #### [facility] ([id number]) [address] [place] [address] #### CBCA, BMP #### [facility] ([id number]) [address] [place] [address] Eosinophils/100 WBC (Bld) 0.6 % Normal [facility] Comment on above: Performed By: #### P INR, 59719-8 #### [facility] ([id number]) [address] [place] [address] #### CBCA, BMP #### [facility] ([id number]) [address] [place] [address] Erythrocyte distribution width (RBC) [Ratio] 14.7 % Normal 11.5-15.0 [facility] Comment on above: Performed By: #### P INR, 85410-1 #### [facility] ([id number]) [address] [place] [address] #### CBCA, BMP #### [facility] ([id number]) [address] [place] [address] Hematocrit (Bld) [Volume fraction] 35.1 % Normal 35-47 [facility] Comment on above: Performed By: #### P INR, 31627-4 #### [facility] ([id number]) [address] [place] [address] #### CBCA, BMP #### [facility] ([id number]) [address] [place] [address] Hemoglobin (Bld) [Mass/Vol] 11.7 g/dL Normal 11.7-15.5 [facility] Comment on above: Performed By: #### P INR, 29710-8 #### [facility] ([id number]) [address] [place] [address] #### CBCA, BMP #### [facility] ([id number]) [address] [place] [address] Lymphocytes (Bld) [#/Vol] 1.1 10*3/uL Normal 1.0-3.5 [facility] Comment on above: Performed By: #### P INR, 84174-0 #### [facility] ([id number]) [address] [place] [address] #### CBCA, BMP #### [facility] ([id number]) [address] [place] [address] Lymphocytes/100 WBC (Bld) 14.7 % Normal [facility] Comment on above: Performed By: #### P INR, 19409-4 #### [facility] ([id number]) [address] [place] [address]886 #### CBCA, BMP #### [facility] ([id number]) [address] [place] [address] MCH (RBC) [Entitic mass] 32.5 pg Normal 27-34 [facility] Comment on above: Performed By: #### P INR, 82768-8 #### [facility] ([id number]) [address] [place] [address] #### CBCA, BMP #### [facility] ([id number]) [address] [place] [address] MCHC (RBC) [Mass/Vol] 33.3 g/dL Normal 32-36 [facility] Comment on above: Performed By: #### P INR, 94035-2 #### [facility] ([id number]) [address] [place] [address] #### CBCA, BMP #### [facility] ([id number]) [address] [place] [address] MCV (RBC) [Entitic vol] 98 fL Normal 80-100 [facility] Comment on above: Performed By: #### P INR, 11088-7 #### [facility] ([id number]) [address] [place] [address]505 #### CBCA, BMP #### [facility] ([id number]) [address] [facility] [place] [address] Monocytes (Bld) [#/Vol] 1.1 10*3/uL High 0-0.9 [facility] Comment on above: Performed By: #### P INR, 93011-0 #### [facility] ([id number]) [address] [place] [address] #### CBCA, BMP #### [facility] ([id number]) [address] [facility] [place] [address] Monocytes/100 WBC (Bld) 13.8 % Normal [facility] Comment on above: Performed By: #### P INR, 69629-1 #### [facility] ([id number]) [address] [place] [address]265 #### CBCA, BMP #### [facility] ([id number]) [address] [place] [address] Neutrophils/100 WBC (Bld) 70.5 % Normal [facility] Comment on above: Performed By: #### P INR, 55237-2 #### [facility] ([id number]) [address] [place] [address] #### CBCA, BMP #### [facility] ([id number]) [address] [place] [address] Platelet mean volume (Bld) [Entitic vol] 7.6 fL Normal 7-12 [facility] Comment on above: Performed By: #### P INR, 75419-5 #### [facility] ([id number]) [address] [place] [address] #### CBCA, BMP #### [facility] ([id number]) [address] [facility] [place] [address] Platelets (Bld) [#/Vol] 321 10*3/uL Normal 150-450 [facility] Comment on above: Performed By: #### P INR, 04439-5 #### [facility] ([id number]) [address] [place] [address]83 #### CBCA, BMP #### [facility] ([id number]) [address] [facility] [place] [address] RBC COUNT 3.59 X10E12/L Low 3.80-5.20 [facility] Comment on above: Performed By: #### P INR, 45294-6 #### [facility] ([id number]) [address] [place] [address]889 #### CBCA, BMP #### [facility] ([id number]) [address] [place] [address] WBC (Bld) [#/Vol] 7.8 10*3/uL Normal 4.0-11.0 [facility] Comment on above: Performed By: #### P INR, 15598-8 #### [facility] ([id number]) [address] [place] [address] #### CBCA, BMP #### [facility] ([id number]) [address] [facility] [place] [address] PROTIME AND INRon 10-27-2023 INR Coag (PPP) [Relative time] 1.1 {INR} Normal 0.8-1.1 [facility] Comment on above: Performed By: #### P INR, 32148-9 #### [facility] ([id number]) [address] [place] [address] #### CBCA, BMP #### [facility] ([id number]) [address] [place] [address], [address] [place] [address] PT Coag (PPP) [Time] 12.3 s Normal 9.8-13.2 [facility] Comment on above: Result Comment: NEW REFERENCE RANGE Performed By: #### P INR, 59464-8 #### [facility] ([id number]) [address] [place] [address] #### CBCA, BMP #### [facility] ([id number]) [address] [place] [address], [facility] [address] [place] [address] aPTT Coag (PPP) [Time]on aPTT Coag (Bld) [Time] 36 s Normal 26-37 [facility] Comment on above: Result Comment: NEW REFERENCE RANGE Performed By: #### P INR, 62894-4 #### [facility] ([id number]) [address] [place] [address] #### CBCA, BMP #### [facility] ([id number]) [address] [facility] [address] [place] [address] Lab Reportson 07-27-2023 Lab Reports [id number] FF Normal [facility] Lab Reports [id number] Normal [facility] Creatinine [Mass/volume] in Serum or PlasmaOrdered By: Monie Wallace on 05-28-2023 Creatinine [Mass/Vol] 1.07 mg/dL 0.60-1.20 [facility] No Panel InformationOrdered By: Monie Wallace on 05-28-2023 Estimated GFR (CKD-EPI) 50.587 mL/Min [facility] Creatinine Clearance (Chem N/A [facility] Urea nitrogen [Mass/volume] in Serum or PlasmaOrdered By: Monie Wallace on 05-28-2023 Urea nitrogen [Mass/Vol] 16 mg/dL 7-25 [facility] No Panel InformationOrdered By: Gypsy Mcmahon on 05-25-2023 E coli Shiga Toxin EIA [facility] Salmonella/Shigella Screen [facility] IgA [Mass/volume] in Serum o r Plasmaon 05-24-2023 IgA [Mass/Vol] 64 mg/dL 64-422 [facility] Comment on above: Performed at: [place] [id number] Director: Salomon Mcarthur PhD, Phone: [phone] No Panel Informationon 05-23 Endomysial IgA Antibody Negative Negative [facility] Serum gliadin peptide IgA an tibody assay (units/volume)on 05-24-2023 Gliadin peptide IgA Qn (S) 4 units 0- [facility] Comment on above: Negative 0 - 19 Weak Positive 20 - 30 Moderate to Strong Positive >30 Serum gliadin peptide IgG an tibody assay (units/volume)on 05-24-2023 Gliadin peptide IgG Qn (S) 2 units 0- [facility] Comment on above: Negative 0 - 19 Weak Positive 20 - 30 Moderate to Strong Positive >30 Serum tissue transglutaminas e (tTG) IgA antibody assay (units/volume)on 05-24-2023 tTG IgA Qn (S) <2 U/mL 0-3 [facility] Comment on above: Negative 0 - 3 Weak Positive 4 - 10 Positive >10 Tissue Transglutaminase (tTG) has been identified as the endomysial antigen. Studies have demonstr- ated that endomysial IgA antibodies have over 99% specificity for gluten sensitive enteropathy. Serum tissue transglutaminas e (tTG) IgG antibody assay (units/volume)on 05-24-2023 tTG IgG Qn (S) <2 U/mL 0-5 [facility] Comment on above: Negative 0 - 5 Weak Positive 6 - 9 Positive >9 [facility] 05-10-2023 Lab Reports [id number] IFF Normal Our [facility] Lab Reports [id number]#1.00T IFF Normal [facility] Lab Reports [id number]#1.00T IFF Normal [facility] Automated urine specific gra vity by refractometryon 05-06-2023 Specific gravity Refractometry automated (U) [Rel density] 1.025 1.005-1.02 5 [facility] Bilirubin Auto test strip (U ) [Mass/Vol]on 05-06-2023 Bilirubin (U) [Mass/Vol] Negative NEGATIVE [facility] Color Auto (U)on 05-06-2023 Color (U) YELLOW YELLOW [facility] Ketones Auto test strip (U) [Mass/Vol]on 05-06-2023 Ketones (U) [Mass/Vol] Negative NEGATIVE [facility] Lab Reportson 05-06-2023 Lab Reports [id number]#1.00T IFF Normal [facility] Laboratory - Microbiology an d Antimicrobial susceptibilityOrdered By: Gypsy Mcmahon on 05-06-2023 Bacteria identified Cx Nom (U) [facility] Protein Auto test strip (U) [Mass/Vol]on 05-06-2023 Protein (U) [Mass/Vol] Negative NEG/TRACE [facility] Specific gravity Auto test s trip (U) [Rel density]on 05-06-2023 Specific gravity (U) [Rel density] CLEAR CLEAR [facility] Urine glucose measurement by test strip (mass/volume)on 05-06-2023 Glucose Test strip (U) [Mass/Vol] Negative NEGATIVE [facility] Urine hemoglobin detection b y automated test stripon 05-06-2023 Hemoglobin Auto test strip Ql (U) TRACE-I NEGATIVE [facility] Urine nitrite detection by a utomated test stripon 05-06-2023 Nitrite Auto test strip Ql (U) SMALL NEGATIVE [facility] Nitrite Auto test strip Ql (U) Positive NEGATIVE [facility] Urobilinogen Auto test strip (U) [Mass/Vol]on 05-06-2023 Urobilinogen Qn (U) 0.2 {Gen'U}/dL 0.2-1.0 [facility] pH Auto test strip (U)on pH (U) 5.5 [pH] 5.0-9.0 [facility] No Panel Informationon 04-30 Clostridium difficile (PCR)(LAB) Negative NEGATIVE [facility] No Panel Informationon 04-06 Clostridium difficile (PCR)(LAB) Positive Negative [facility] Comment on above: Toxigenic C difficil e: PositiveEpidemic Strain Bl/NAP1/027: Presumptive NegativePerformed at: [address] [id number] Director: Salomon Mcarthur PhD, Phone: [phone] IntraOperative Documentson 0 02-12-2023 IntraOperative Documents [id number]#1.00T IFF Normal [facility] Physician Orderon 02-12-2023 Physician Order [id number]#1.00T IFF Normal [facility] Physician Order [id number]#1.00T IFF Normal [facility] ED Note-Physicianon 02-05-20 ED Note-Physician [id number]#1.00 TIFF Normal [facility] Lab Reportson 02-04-2023 Lab Reports [id number]#1.00T IFF Normal [facility] Lab Reports [id number]#1.00T IFF Normal [facility] Lab Reports [id number]#1.00T IFF Normal [facility] Consent for Treatmenton 01-09 Consent for Treatment [id number]#1.00T IFF Normal [facility] Retail - Clinical Noteon Retail - Clinical Note [id number]#1.00T IFF Normal [facility] Lab Reportson 01-28-2023 Lab Reports [id number]#1.00T IFF Normal [facility] Physician Orderon 01-28-2023 Physician Order [id number]#1.00T IFF Normal [facility] Urology Office/Clinic Noteon 01-27-2023 Urology Office/Clinic Note [...] Urnls Dip Stick Auto w/o Microscopy POC 33129 2. 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 Case discussed w GI, Dr Brown's ENERGY EFFICIENCY SPECIALIST Katie. he agrees w above plan. 3. [...] the risks of side effects etc. Orders: 12680 Measure Post Void residual urine and/or bladder capacity by US- non-imaging Total time spent reviewing previous notes/results/external documents, preparing the chart, conducting the encounter with the patient and family, ordering tests/medications, and documenting the encounter was 40 minutes. Follow-up With When Contact Information MALATHI VIEIRA PA-C, URL [address] [facility] [place] [address] [phone] Additional Instructions: f/u in Spring Patient Education Urinary Tract Infection, Adult, Ihlk-my-Fcka Documentation recorded by the scribe Caprice Stratton accurately reflects the services(s) I performed and decisions made by me. Authenticated by Malathi Vieira PA-C on 01/27/2023 13:56:47. I, Caprice Stratton, personally scribed for Malathi Vieira PA-C on (more content not included)... Normal [facility] Comment on above: Result Comment: Elec tronically Signed By: MALATHI VIEIRA PA-C\.br\Date and Time Signed: 01/27/23 13:57 EST\.br\Electronically Co-Signed By: Caprice Stratton\.br\Date and Time Co-Signed: 01/26/23 16:09 EST Ambulatory Visit Summaryon 1 03-29-2022 Ambulatory Visit Summary [facility] :1935 Visit Date:01/26/2023 Ambulatory Visit Instructions Your Diagnosis Recurrent UTI Feeling of incomplete bladder emptying Colitis Tests Performed Urnls Dip Stick Auto w/o Microscopy POC 45407 Your Care Team Attending Physician - MALATHI [...] MALATHI VIEIRA PA-C Where: [facility] Patient Educationon 12-19-20 23 Patient Education Obstetrics and Gynecology Urinary Tract [...] these instructions at home: Medicines ? Take aaqy-tin-hmylcwr and prescription medicines only as told by [...] provider. Document Revised: 09/06/2020 Document Reviewed: 09/06/2020 [employer] Patient Education ? 2022 [employer] Normal [facility] Lab Reportson 01-25-2023 Lab Reports [id number]#1.00T IFF Normal [facility] Lab Reports [id number]#1.00T IFF Normal [facility] Lab Reports [id number]#1.00T IFF [facility] Lab Reportson 12-03-2022 Lab Reports [id number]#1.00TI FF [facility] Physician Orderon 12-01-2022 Physician Order [id number]#1.00T IFF [facility] Lab Reportson 09-25-2022 Lab Reports [id number]#1.00C D:127 [facility] Lab Reports [id number]#1.00C D:127 [facility] Physician Orderon 09-23-2022 Physician Order [id number]#1.00C D:127 [facility] Screenson 09-23-2022 Screens [id number]#1.00C D:127 [facility] Ambulatory Visit Summaryon 0 09-22-2022 Ambulatory Visit Summary [facility] :1935 Visit Date:09/22/2022 Ambulatory Visit Instructions [...] MALATHI VIEIRA PA-C Where: [facility] Patient Educationon 09-23-19 Patient Education Obstetrics and [...] these instructions at home: Medicines ? Take utue-wug-zvxqudd and prescription medicines only as told by [...] provider. Document Revised: 09/06/2020 Document Reviewed: 09/06/2020 [employer] Patient Education ? 2022 [employer] Finn Garduno [facility] Urology Office/Clinic Noteon 09-22-2022 Urology Office/Clinic [...] symptoms not resolved. C&S this morning at [facility] ( not finalized) UTI symptoms [...] resolved per daughter. C&S this morning at [facility] (not finalized) - will call [...] up having to send a U.Cx to [facility] so we can review the [...] When Contact Information MALATHI VIEIRA PA-C, URL [address] [place] [address] Additional Instructions: Patient Education Urinary Tract Infection, Adult, Ptet-cc-Fjow I, Jazlyn Lucero, personally scribed for Malathi [...] 3 mg (more content not included)... Normal [facility] Comment on above: Result Comment: Elec tronically [...] MI NUÑEZ Date: 2022-05-27 10:34 Normal [facility] CULTURE URINEon 05-14-2022 CULTURE URINE [...] Trimethoprim/Sulfametho xazole <=20 S F Normal [facility] Comment on above: Performed By: #### U RCX #### [facility] [address] [place] [address] Dr. Anthony Bonilla UA RANDOMon 05-11-2022 Bilirubin Ql (U) Negative Normal NEGATIVE [facility] Comment on above: Performed By: #### U RCX #### [facility] [address] [place] [address] Dr. Anthony Bonilla Clarity (U) SL CLOUDY Abnormal CLEAR [facility] Comment on above: Performed By: #### U RCX #### [facility] [address] [place] [address] Dr. Anthony Bonilla Color (U) LT. YELLOW Normal YELLOW [facility] Comment on above: Performed By: #### U RCX #### [facility] [address] [place] [address] Dr. Anthony Bonilla Glucose Ql (U) Negative Normal NEGATIVE [facility] Comment on above: Performed By: #### U RCX #### [facility] [address] [place] [address] Dr. Anthony Bonilla Hemoglobin Ql (U) Negative Normal NEGATIVE [facility] Comment on above: Performed By: #### U RCX #### [facility] [address] [place] [address] Dr. Anthony Bonilla Ketones Ql (U) Negative Normal NEGATIVE [facility] Comment on above: Performed By: #### U RCX #### [facility] [address] [place] [address] Dr. Anthony Bonilla LEUKOCYTES MODERATE Abnormal NEGATIVE [facility] Comment on above: Performed By: #### U RCX #### [facility] [address] [place] [address] Dr. Anthony Bonilla Nitrite Ql (U) Negative Normal NEGATIVE [facility] Comment on above: Performed By: #### U RCX #### [facility] [address] [place] [address] Dr. Anthony Bonilla pH (U) 5.5 [pH] Normal 5-9 [facility] Comment on above: Performed By: #### U RCX #### [facility] [address] [place] [address] Dr. Anthony Bonilla SPEC GRAVITY 1.020 Normal 1.005-<=1. 025 [facility] Comment on above: Performed By: #### U RCX #### [facility] [address] [place] [address] Dr. Anthony Bonilla UA PROTEIN Negative Normal NEGATIVE/ TRACE [facility] Comment on above: Performed By: #### U RCX #### [facility] [address] [place] [address] Dr. Anthony Bonilla Urobilinogen Qn (U) 0.2 {Gen'U}/dL Normal 0.2 - 1. 0 [facility] Comment on above: Performed By: #### U RCX #### [facility] [address] [place] [address] Dr. Anthony Bonilla CULTURE URINEon 05-01-2022 CULTURE [...] Trimethoprim/Sulfametho xazole <=20 S F Normal [facility] Comment on above: Performed By: #### U RCX #### [facility] [address] [place] [address] Dr. Anthony Bonilla CULTURE URINEon 04-16-2022 CULTURE [...] F Nitrofurantoin 64 I F Normal [facility] Comment on above: Performed By: #### U RCX #### [facility] [address] [place] [address] Dr. Anthony Bonilla UA RANDOMon 04-14-2022 Bilirubin Ql (U) Negative Normal NEGATIVE [facility] Comment on above: Performed By: #### U RCX #### [facility] [address] [place] [address] Dr. Anthony Bonilla Clarity (U) CLEAR Normal CLEAR [facility] Comment on above: Performed By: #### U RCX #### [facility] [address] [place] [address] Dr. Anthony Bonilla Color (U) LT. YELLOW Normal YELLOW [facility] Comment on above: Performed By: #### U RCX #### [facility] [address] [place] [address] Dr. Anthony Bonilla Glucose Ql (U) Negative Normal NEGATIVE [facility] Comment on above: Performed By: #### U RCX #### [facility] [address] [place] [address] Dr. Anthony Bonilla Hemoglobin Ql (U) Negative Normal NEGATIVE [facility] Comment on above: Performed By: #### U RCX #### [facility] [address] [place] [address] Dr. Anthony Bonilla Ketones Ql (U) Negative Normal NEGATIVE [facility] Comment on above: Performed By: #### U RCX #### [facility] [address] [place] [address] Dr. Anthony Bonilla LEUKOCYTES MODERATE Abnormal NEGATIVE [facility] Comment on above: Performed By: #### U RCX #### [facility] [address] [address] [address] Anthony Bonilla Nitrite Ql (U) Negative Normal NEGATIVE [facility] Comment on above: Performed By: #### U RCX #### [facility] [address] [place] [address] Dr. Anthony Bonilla pH (U) 5.5 [pH] Normal 5-9 [facility] Comment on above: Performed By: #### U RCX #### [facility] [address] [address] [address] Anthony Bonilla SPEC GRAVITY 1.020 Normal 1.005-<=1. 025 [facility] Comment on above: Performed By: #### U RCX #### [facility] [address] [place] [address] Dr. Anthony Bonilla UA PROTEIN Negative Normal NEGATIVE/ TRACE [facility] Comment on above: Performed By: #### U RCX #### [facility] [address] [place] [address] Dr. Anthony Bonilla Urobilinogen Qn (U) 0.2 {Gen'U}/dL Normal 0.2 - 1. 0 [facility] Comment on above: Performed By: #### U RCX #### [facility] [address] [place] [address] Dr. Anthony Bonilla Urinalysis - DIPSTICKon 03-12 Appearance (U) clear [employer] Other Bilirubin Ql (U) [employer] Other Color (U) dark yellow [employer] Other Glucose Ql (U) Negative [employer] Other Hemoglobin Ql (U) Negative [employer] Other Ketones Ql (U) trace [employer] Other Leukocyte esterase Test strip Ql (U) [address] Other Nitrite Ql (U) Negative [employer] Other pH (U) 5.0 [pH] [employer] Other Protein Ql (U) Negative [employer] Other Specific gravity (U) [Rel density] 1.015 [employer] Other Urobilinogen (U) [Mass/Vol] 0.2 mg/dL [facility] [employer] Other Urinalysis - DIPSTICK [employer] Other Urine Cultureon 03-30-2022 Urine Culture 10,000 [facility] [employer] Other Bacteria identified Cx Nom (U) [facility] [employer] Other CULTURE URINEon 03-23-2022 CULTURE URINE Isolate 1 Pseudomonas aeruginosa >100,000 cfu/mL of ORGANISM 1 Pseudomonas aeruginosa ANTIBIOTIC M.I.C RX STATUS Piperacillin/Tazobactam 8 S F Ceftazidime 4 S F Imipenem 1 S F Amikacin <=2 S F Gentamicin <=1 S F Tobramycin <=1 S F Ciprofloxacin <=0.25 S F Levofloxacin 0.5 S F Normal [facility] Comment on above: Performed By: #### U RCX #### [facility] [address] [place] [address] Dr. Anthony Bonilla CARDIAC DARWIN ADMITon 023 CK [Catalytic activity/Vol] 137 U/L Normal 26-192 [facility] Comment on above: Performed By: #### U RCX #### [facility] [address] [place] [address] Dr. Anthony Bonilla CK.MB [Mass/Vol] 1.05 ng/mL Normal <=3.60 [facility] Comment on above: Performed By: #### U RCX #### [facility] [address] [place] [address] Dr. Anthony Bonilla HSTROP 17.6 pg/mL Normal 4.0-51.3 [facility] Comment on above: Result Comment: CUT- OFF POINTS HAVE BEEN ESTABLISHED BASED ON THE FOURTH UNIVERSAL DEFINITIONS OF MYOCARDIAL INFARCTION. THE UPPER REFERENCE LIMIT (URL) OF TROPONIN, DEFINED THE 99TH PERCENTILE OF cTnI DISTRIBUTION IN A REFERENCE POPULATION, HAS BEEN CONFIRMED THE DECISION THRESHOLD FOR [place] DIAGNOSIS. Performed By: #### U RCX #### [facility] [address] [place] [address] Dr. Anthony Bonilla CANDIDA 72 ng/mL Normal 9-82 [facility] Comment on above: Performed By: #### U RCX #### [facility] [address] [place] [address] Dr. Anthony Bonilla CBC AUTO DIFFon 03-20-2022 BASO # 0.0 103/ul Normal 0.0-0.1 [facility] Comment on above: Performed By: #### C BC #### [facility] [address] [place] [address] Dr. Anthony Bonilla Basophils/100 WBC (Bld) 0.3 % Normal 0.2-2.0 [facility] Comment on above: Performed By: #### C BC #### [facility] [address] [place] [address] Dr. Anthony Bonilla EO # 0.0 103/ul Normal 0.0-0.7 [facility] Comment on above: Performed By: #### C BC #### [facility] [address] [place] [address] Dr. Anthony Bonilla Eosinophils/100 WBC (Bld) 0.1 % Critically low 0.9-7.0 [facility] Comment on above: Performed By: #### C BC #### [facility] [address] [place] [address] Dr. Anthony Bonilla Erythrocyte distribution width (RBC) [Ratio] 15.9 % Critically high 11.0-15.0 [facility] Comment on above: Performed By: #### C BC #### [facility] [address] [place] [address] Dr. Anthony Bonilla Hematocrit (Bld) [Volume fraction] 33.6 % Critically low 36.0-48.0 [facility] Comment on above: Performed By: #### C BC #### [facility] [address] [place] [address] Dr. Anthony Bonilla Hemoglobin (Bld) [Mass/Vol] 11.2 g/dL Critically low 12.0-16.0 [facility] Comment on above: Performed By: #### C BC #### [facility] [address] [place] [address] Dr. Anthony Bonilla IG # 0.04 10e3/ul Critically high 0.00-0.03 [facility] Comment on above: Performed By: #### C BC #### [facility] [address] [place] [address] Dr. Anthony Bonilla IG % 0.3 % Normal 0.0-0.5 [facility] Comment on above: Performed By: #### C BC #### [facility] [address] [place] [address] Dr. Anthony Bonilla LYMPH # 0.8 103/ul Critically low 1.2-3.8 [facility] Comment on above: Performed By: #### C BC #### [facility] [address] [place] [address] Dr. Anthony Bonilla Lymphocytes/100 WBC (Bld) 6.4 % Critically low 20.5-60.0 [facility] Comment on above: Performed By: #### C BC #### [facility] [address] [place] [address] Dr. Anthony Bonilla MANUAL DIFF REQ NO Normal [facility] Comment on above: Performed By: #### C BC #### [facility] [address] [place] [address] Dr. Anthony Bonilla MCH (RBC) [Entitic mass] 28.9 pg Normal 26.7-34.0 [facility] Comment on above: Performed By: #### C BC #### [facility] [address] [place] [address] Dr. Anthony Bonilla MCHC (RBC) [Mass/Vol] 33.3 g/dL Normal 29.9-35.2 [facility] Comment on above: Performed By: #### C BC #### [facility] [address] [place] [address] Dr. Anthony Bonilla MCV (RBC) [Entitic vol] 86.8 fL Normal 81.0-99.0 [facility] Comment on above: Performed By: #### C BC #### [facility] [address] [place] [address] Dr. Anthony Bonilla MONO # 1.1 103/ul Critically high 0.3-0.[address] [facility] Comment on above: Performed By: #### C BC #### [facility] [address] [place] [address] Dr. Anthony Bonilla Monocytes/100 WBC (Bld) 8.3 % Normal 1.7-12.0 [facility] Comment on above: Performed By: #### C BC #### [facility] [address] [place] [address] Dr. Anthony Bonilla NEUT # 11.2 103/ul Critically high 1.4-6.5 [facility] Comment on above: Performed By: #### C BC #### [facility] [address] [place] [address] Dr. Anthony Bonilla Neutrophils/100 WBC (Bld) 84.6 % Critically high 43.0-75.0 [facility] Comment on above: Performed By: #### C BC #### [facility] [address] [place] [address] Dr. Anthony Bonilla Platelet mean volume (Bld) [Entitic vol] 9.7 fL Normal 9.5-13.5 [facility] Comment on above: Performed By: #### C BC #### [facility] [address] [place] [address] Dr. Anthony Bonilla PLT 274 103/ul Normal 150-450 [facility] Comment on above: Performed By: #### C BC #### [facility] [address] [place], [place] [id number] Dr. Anthony Bonilla RBC 3.87 106/ul Critically low 4.20-5.[address] [facility] Comment on above: Performed By: #### C BC #### [facility] [address] [place] [address] Dr. Anthony Bonilla WBC 13.2 103/ul Critically high 4.0-11.0 [facility] Comment on above: Performed By: #### C BC #### [facility] [address] [address] [address] HEAD WO CONon [...] CLAU SHAH Date: 2022-03-20 20:30 Normal [facility] ER URINE PROFILEon 3 Bilirubin Ql (U) Negative Normal NEGATIVE [facility] Comment on above: Performed By: #### C BC #### [facility] [address] [place] [address] [address] [address] Anthony Bonilla Clarity (U) CLEAR Normal CLEAR [facility] Comment on above: Performed By: #### C BC #### [facility] [address] [place] [address] [address] [address] Anthony Bonilla Color (U) LT. YELLOW Normal YELLOW [facility] Comment on above: Performed By: #### C BC #### [facility] [address] [place] [address] Dr. Anthony BANGURA A micrscopic examination will be performed if indicated. Normal [facility] Comment on above: Performed By: #### C BC #### [facility] [address] [place] [address] Dr. Anthony Bonilla Glucose Ql (U) Negative Normal NEGATIVE [facility] Comment on above: Performed By: #### C BC #### [facility] [address] [place] [address] Dr. Anthony Bonilla Hemoglobin Ql (U) LARGE Abnormal NEGATIVE [facility] Comment on above: Performed By: #### C BC #### [facility] [address] [place] [address] Dr. Anthony Bonilla Ketones Ql (U) Negative Normal NEGATIVE [facility] Comment on above: Performed By: #### C BC #### [facility] [address] [place] [address] Dr. Anthony Bonilla LEUKOCYTES SMALL Abnormal NEGATIVE [facility] Comment on above: Performed By: #### C BC #### [facility] [address] [place] [address] Dr. Anthony Bonilla Nitrite Ql (U) Positive Abnormal NEGATIVE [facility] Comment on above: Performed By: #### C BC #### [facility] Laboratory [address] [place] [address] Dr. Anthony Bonilla pH (U) 7.0 [pH] Normal 5-9 [facility] Comment on above: Performed By: #### C BC #### [facility] [address] [place] [address] Dr. Anthony Bonilla Protein (U) [Mass/Vol] 30 mg/dL Abnormal NEGAT JUDAH/ TRACE [facility] Comment on above: Performed By: #### C BC #### [facility] [address] [place] [address] Dr. Anthony Bonilla SPEC GRAVITY 1.015 Normal 1.005-<=1. 025 [facility] Comment on above: Performed By: #### C BC #### [facility] [address] [place] [address] Dr. Anthony Bonilla UR MICRO IND INDICATED Normal [facility] Comment on above: Performed By: #### C BC #### [facility] [address] [place] [address] Dr. Anthony Bonilla Urobilinogen Qn (U) 1.0 {Gen'U}/dL Normal 0.2 - 1. 0 [facility] Comment on above: Performed By: #### C BC #### [facility] [address] [place] [address] Dr. Anthony Bonilla PROF 14(COMP METB)on 023 Albumin [Mass/Vol] 3.4 g/dL Normal 3.4-5.0 [facility] Comment on above: Performed By: #### U RCX #### [facility] [address] [place] [address] Dr. Anthony Bonilla Albumin/Globulin [Mass ratio] 1.2 {ratio} Normal [facility] Comment on above: Performed By: #### U RCX #### [facility] [address] [place] [address] Dr. Anthony Bonilla ALP [Catalytic activity/Vol] 26 U/L Critically low 46-116 [facility] Comment on above: Performed By: #### U RCX #### [facility] [address] [place] [address] Dr. Anthony Bonilla ALT [Catalytic activity/Vol] 21 U/L Normal 14-59 [facility] Comment on above: Performed By: #### U RCX #### [facility] [address] [place] [address] Dr. Anthony Bonilla Anion gap [Moles/Vol] 13.7 mmol/L Normal [facility] Comment on above: Performed By: #### U RCX #### [facility] [address] [place] [address] Dr. Anthony Bonilla AST [Catalytic activity/Vol] 20 U/L Normal 15-37 [facility] Comment on above: Performed By: #### U RCX #### [facility] [address] [address] [address] Anthony Bonilla Bilirubin [Mass/Vol] 1.2 mg/dL Critically high 0.2-1.0 [facility] Comment on above: Performed By: #### U RCX #### [facility] [address] [address] [address] nAthony Bonilla Calcium [Mass/Vol] 9.4 mg/dL Normal 8.5-10.1 [facility] Comment on above: Performed By: #### U RCX #### [facility] [address] [address] [address] Anthony Bonilla Chloride [Moles/Vol] 99 mmol/L Normal 98-107 [facility] Comment on above: Performed By: #### U RCX #### [facility] [address] [place] [address] Dr. Anthony Bonilla CO2 [Moles/Vol] 29.1 mmol/L Normal 21.0-32.0 [facility] Comment on above: Performed By: #### U RCX #### [facility] [address] [address] [address] Anthony Bonilla Creatinine [Mass/Vol] 1.02 mg/dL Normal 0.55-1.02 [facility] Comment on above: Performed By: #### U RCX #### [facility] [address] [address] [address] Anthony Bonilla EGFR-AF AZERBAIJANI >60 Normal >=60 [facility] Comment on above: Performed By: #### U RCX #### [facility] [address] [address] [address] Anthony Bonilla EGFR-NON AF AZERBAIJANI 52 mL/min/1.73m2 Critically low >=60 [facility] Comment on above: Performed By: #### U RCX #### [facility] [address] [address] [address] Anthony Bonilla Globulin (S) [Mass/Vol] 2.9 g/dL Normal [facility] Comment on above: Performed By: #### U RCX #### [facility] [address] [address] [address] Anthony Bonilla Glucose [Mass/Vol] 98 mg/dL Normal 74-106 [facility] Comment on above: Performed By: #### U RCX #### [facility] [address] [address] [address] Anthony Bonilla Potassium [Moles/Vol] 3.8 mmol/L Normal 3.5-5.1 [facility] Comment on above: Performed By: #### U RCX #### [facility] [address] [address] [address] Anthony Bonilla Protein [Mass/Vol] 6.3 g/dL Critically low 6.4-8.2 [facility] Comment on above: Performed By: #### U RCX #### [facility] [address] [place] [address] Dr. Anthony Bonilla Sodium [Moles/Vol] 138 mmol/L Normal 136-145 [facility] Comment on above: Performed By: #### U RCX #### [facility] [address] [place] [address] Dr. Anthony Bonilla Urea nitrogen [Mass/Vol] 16.0 mg/dL Normal 7.0-18.0 [facility] Comment on above: Performed By: #### U RCX #### [facility] [address] [place] [address] Dr. Anthony Bonilla Urea nitrogen/Creatinine [Mass ratio] 15.7 mg/mg Normal [facility] Comment on above: Performed By: #### U RCX #### [facility] [address] [place] [address] Dr. Anthony Bonilla URINE MICROSCOPIC ONLYon BACTERIA LARGE Abnormal NONE SEEN [facility] Comment on above: Performed By: #### C BC #### [facility] [address] [place] [address] Dr. Anthony Bonilla Bacteria identified Cx Nom (U) INDICATED Normal [facility] Comment on above: Performed By: #### C BC #### [facility] [address] [place] [address] Dr. Anthony Bonilla CAST NONE SEEN Normal NONE SEEN [facility] Comment on above: Performed By: #### C BC #### [facility] [address] [place] [address] Dr. Anthony Bonilla Crystals LM Nom (Urine sed) NONE SEEN Normal NONE SEEN [facility] Comment on above: Performed By: #### C BC #### [facility] [address] [place] [address] Dr. Anthony Bonilla Epithelial cells LM Ql (Urine sed) FEW Abnormal NONE SEEN /RARE [facility] Comment on above: Performed By: #### C BC #### [facility] [address] [place] [address] Dr. Anthony Bonilla MUCOUS NONE SEEN Normal NONE SEEN [facility] Comment on above: Performed By: #### C BC #### [facility] [address] [place] [address] Dr. Anthony Bonilla RBC 10-20 Abnormal 0-2 [facility] Comment on above: Performed By: #### C BC #### [facility] [address] [place] [address] Dr. Anthony Bonilla WBC 50-75 Abnormal NONE SEEN [facility] Comment on above: Performed By: #### C BC #### [facility] [address] [place] [address] Dr. Anthony Bonilla CALPROTECTIN, FECALon 2022 Calprotectin, Fecal 416 ug/g Critically high 0-120 [facility] Comment on above: Result Comment: Conc entration Interpretation Follow-Up <16 - 50 ug/g Normal None >50 -120 ug/g Borderline Re-evaluate in 4-6 weeks >120 ug/g Abnormal Repeat as clinically indicated Performed By: #### U RCX #### [facility] [address] [place] [address] Dr. Anthony Bonilla QUANTIFERON TB GOLD PLUSon 0 02-19-2022 QuantiFERON Criteria Comment Normal [facility] Comment on above: Result Comment: [...] test. Performed By: #### U RCX #### [facility] [address] [place] [address] Dr. Anthony Bonilla QuantiFERON Incubation Incubation performed. Normal [facility] Comment on above: Performed By: #### U RCX #### [facility] [address] [place] [address] Dr. Anthony Bonilla QuantiFERON Mitogen Value >10.00 Normal [facility] Comment on above: Performed By: #### U RCX #### [facility] [address] [place] [address] Dr. Anthony Bonilla QuantiFERON Nil Value 0.07 IU/mL Normal [facility] Comment on above: Performed By: #### U RCX #### [facility] [address] [place] [address] Dr. Anthony Bonilla QuantiFERON TB1 Ag Value 0.08 IU/mL Normal [facility] Comment on above: Performed By: #### U RCX #### [facility] [address] [place] [address] Dr. Anthony Bonilla QuantiFERON TB2 Ag Value 0.07 IU/mL Normal [facility] Comment on above: Performed By: #### U RCX #### [facility] [address] [place] [address] Dr. Anthony Bonilla QuantiFERON-TB Gold Plus Negative Normal Negative [facility] Comment on above: Result Comment: No r esponse to M tuberculosis antigens detected. Infection with M tuberculosis is unlikely, but high risk individuals should be considered for additional testing (ATS/IDSA/CDC Clinical Practice Guidelines, 2017). The reference range is an Antigen minus Nil result of <0.35 IU/mL. Chemiluminescence immunoassay methodology Performed By: #### U RCX #### [facility] [address] [place] [address] Dr. Anthony Bonilla HEP B SURFACE ANTIGEN SCREEN on 02-18-2022 HBsAg Screen Negative Normal Negative [facility] Comment on above: Performed By: #### U RCX #### [facility] [address] [place] [address] Dr. Anthony Bonilla HEPATITIS B CORE, IgMon 02-08 Hep B Core Ab, IgM Negative Normal Negative [facility] Comment on above: Performed By: #### U RCX #### [facility] [address] [place] [address] Dr. Anthony Bonilla HEPATITIS B SURFACE ANTIBODY , QUANTon 02-18-2022 Hepatitis B Surf AB Quant <3.1 Critically low Immunity>9 .9 [facility] Comment on above: Result Comment: Stat us of Immunity Anti-HBs Level Inconsistent with Immunity 0.0 - 9.9 Consistent with Immunity >9.9 Performed By: #### C BC #### [facility] [address] [place] [address] Dr. Anthony Bonilla CBC AUTO DIFFon 02-17-2022 BASO # 0.0 103/ul Normal 0.0-0.1 [facility] Comment on above: Performed By: #### U RCX #### [facility] [address] [place] [address] Dr. Anthony Bonilla Basophils/100 WBC (Bld) 0.4 % Normal 0.2-2.0 [facility] Comment on above: Performed By: #### U RCX #### [facility] [address] [place] [address] Dr. Anthony Bonilla EO # 0.0 103/ul Normal 0.0-0.7 [facility] Comment on above: Performed By: #### U RCX #### [facility] [address] [place] [address] Dr. Anthony Bonilla Eosinophils/100 WBC (Bld) 0.5 % Critically low 0.9-7.0 [facility] Comment on above: Performed By: #### U RCX #### [facility] [address] [place] [address] Dr. Anthony Bonilla Erythrocyte distribution width (RBC) [Ratio] 14.7 % Normal 11.0-15.0 [facility] Comment on above: Performed By: #### U RCX #### [facility] [address] [place] [address] Dr. Anthony Bonilla Hematocrit (Bld) [Volume fraction] 33.2 % Critically low 36.0-48.0 [facility] Comment on above: Performed By: #### U RCX #### [facility] [address] [place] [address] Dr. Anthony Bonilla Hemoglobin (Bld) [Mass/Vol] 11.0 g/dL Critically low 12.0-16.0 [facility] Comment on above: Performed By: #### U RCX #### [facility] [address] [place] [address] Dr. Anthony Bonilla IG # 0.02 10e3/ul Normal 0.00-0.03 [facility] Comment on above: Performed By: #### U RCX #### [facility] [address] [place] [address] Dr. Anthony Bonilla IG % 0.2 % Normal 0.0-0.5 [facility] Comment on above: Performed By: #### U RCX #### [facility] [address] [place] [address] Dr. Anthony Bonilla LYMPH # 1.3 103/ul Normal 1.2-3.8 [facility] Comment on above: Performed By: #### U RCX #### [facility] [address] [place] [address] Dr. Anthony Bonilla Lymphocytes/100 WBC (Bld) 14.8 % Critically low 20.5-60.0 [facility] Comment on above: Performed By: #### U RCX #### [facility] [address] [place] [address] Dr. Anthony Bonilla MANUAL DIFF REQ NO Normal [facility] Comment on above: Performed By: #### U RCX #### [facility] [address] [place] [address] Dr. Anthony Bonilla MCH (RBC) [Entitic mass] 29.0 pg Normal 26.7-34.0 [facility] Comment on above: Performed By: #### U RCX #### [facility] [address] [place] [address] Dr. Anthony Bonilla MCHC (RBC) [Mass/Vol] 33.1 g/dL Normal 29.9-35.2 [facility] Comment on above: Performed By: #### U RCX #### [facility] [address] [place] [address] Dr. Anthony Bonilla MCV (RBC) [Entitic vol] 87.6 fL Normal 81.0-99.0 [facility] Comment on above: Performed By: #### U RCX #### [facility] [address] [place] [address] Dr. Anthony Bonilla MONO # 0.8 103/ul Normal 0.3-0.8 [facility] Comment on above: Performed By: #### U RCX #### [facility] [address] [place] [address] Dr. Anthony Bonilla Monocytes/100 WBC (Bld) 9.6 % Normal 1.7-12.0 [facility] Comment on above: Performed By: #### U RCX #### [facility] [address] [place] [address] Dr. Anthony Bonilla NEUT # 6.3 103/ul Normal 1.4-6.5 [facility] Comment on above: Performed By: #### U RCX #### [facility] [address] [place] [address] Dr. Anthony Bonilla Neutrophils/100 WBC (Bld) 74.5 % Normal 43.0-75.0 [facility] Comment on above: Performed By: #### U RCX #### [facility] [address] [place] [address] Dr. Anthony Bonilla Platelet mean volume (Bld) [Entitic vol] 9.8 fL Normal 9.5-13.5 [facility] Comment on above: Performed By: #### U RCX #### [facility] [address] [address] [address] Anthony Bonilla PLT 318 103/ul Normal 150-450 [facility] Comment on above: Performed By: #### U RCX #### [facility] [address] [place] [address] Dr. Anthony Bonilla RBC 3.79 106/ul Critically low 4.20-5.40 [facility] Comment on above: Performed By: #### U RCX #### [facility] [address] [place] [address] Dr. Anthony Bonilla WBC 8.5 103/ul Normal 4.0-11.0 [facility] Comment on above: Performed By: #### U RCX #### [facility] [address] [place] [address] Dr. Anthony Bonilla PROF 14(COMP METB)on 023 Albumin [Mass/Vol] 3.6 g/dL Normal 3.4-5.0 [facility] Comment on above: Performed By: #### U RCX #### [facility] [address] [place] [address] Dr. Anthony Bonilla Albumin/Globulin [Mass ratio] 1.2 {ratio} Normal [facility] Comment on above: Performed By: #### U RCX #### [facility] [address] [place] [address] Dr. Anthony Bonilla ALP [Catalytic activity/Vol] 27 U/L Critically low 46-116 [facility] Comment on above: Performed By: #### U RCX #### [facility] [address] [place] [address] Dr. Anthony Bonilla ALT [Catalytic activity/Vol] 21 U/L Normal 14-59 [facility] Comment on above: Performed By: #### U RCX #### [facility] [address] [place] [address] Dr. Anthony Bonilla Anion gap [Moles/Vol] 13.5 mmol/L Normal [facility] Comment on above: Performed By: #### U RCX #### [facility] [address] [place] [address] Dr. Anthony Bonilla AST [Catalytic activity/Vol] 19 U/L Normal 15-37 [facility] Comment on above: Performed By: #### U RCX #### [facility] [address] [address] [address] Anthony Bonilla Bilirubin [Mass/Vol] 0.6 mg/dL Normal 0.2-1.0 [facility] Comment on above: Performed By: #### U RCX #### [facility] [address] [address] [address] Anthony Bonilla Calcium [Mass/Vol] 9.2 mg/dL Normal 8.5-10.1 [facility] Comment on above: Performed By: #### U RCX #### [facility] [address] [place] [address] Dr. Anthony Bonilla Chloride [Moles/Vol] 104 mmol/L Normal 98-107 [facility] Comment on above: Performed By: #### U RCX #### [facility] [address] [place] [address] Dr. Anthony Bonilla CO2 [Moles/Vol] 28.9 mmol/L Normal 21.0-32.0 [facility] Comment on above: Performed By: #### U RCX #### [facility] [address] [place] [address] Dr. Anthony Bonilla Creatinine [Mass/Vol] 1.21 mg/dL Critically high 0.55-1.02 [facility] Comment on above: Performed By: #### U RCX #### [facility] [address] [place] [address] Dr. Anthony Bonilla EGFR-AF AZERBAIJANI 51 mL/min/1.73m2 Critically low >=60 [facility] Comment on above: Performed By: #### U RCX #### [facility] [address] [place] [address] Dr. Anthony Bonilla EGFR-NON AF AZERBAIJANI 42 mL/min/1.73m2 Critically low >=60 [facility] Comment on above: Performed By: #### U RCX #### [facility] [address] [place] [address] Dr. Anthony Bonilla Globulin (S) [Mass/Vol] 3.1 g/dL Normal [facility] Comment on above: Performed By: #### U RCX #### [facility] [address] [place] [address] Dr. Anthony Bonilla Glucose [Mass/Vol] 107 mg/dL Critically high 74-106 [facility] Comment on above: Performed By: #### U RCX #### [facility] [address] [place] [address] Dr. Anthony Bonilla Potassium [Moles/Vol] 3.4 mmol/L Critically low 3.5-5.1 [facility] Comment on above: Performed By: #### U RCX #### [facility] [address] [place] [address] Dr. Anthony Bonilla Protein [Mass/Vol] 6.7 g/dL Normal 6.4-8.2 [facility] Comment on above: Performed By: #### U RCX #### [facility] [address] [place] [address] Dr. Anthony Bonilla Sodium [Moles/Vol] 143 mmol/L Normal 136-145 [facility] Comment on above: Performed By: #### U RCX #### [facility] [address] [place] [address] Dr. Anthony Bonilla Urea nitrogen [Mass/Vol] 22.0 mg/dL Critically high 7.0-18.0 [facility] Comment on above: Performed By: #### U RCX #### [facility] [address] [place] [address] Dr. Anthony Bonilla Urea nitrogen/Creatinine [Mass ratio] 18.2 mg/mg Normal [facility] Comment on above: Performed By: #### U RCX #### [facility] [address] [place] [address] Dr. Anthony Bonilla Automated erythrocytes count in urine sediment (number/area)Ordered By: Gypsy Mcmahon on 02-16-2022 RBC Auto (Urine sed) [#/Area] 0-1 [HPF] 0-4 [facility] Automated leukocytes count i n urine sediment (number/area)Ordered By: Gypsy Mcmahon on 02-16-2022 WBC Auto (Urine sed) [#/Area] 20-49 [HPF] 0-4 [facility] Bilirubin Test strip Ql (U)O rdered By: Gypsy Mcmahon on 02-16-2022 Bilirubin Ql (U) Negative Negative [facility] Color Auto (U)Ordered By: Nicole Mcmahon on 02-16-2022 Color (U) Yellow Yellow [facility] Ketones Auto test strip (U) [Mass/Vol]Ordered By: Gypsy Mcmahon on 02-16-2022 Ketones (U) [Mass/Vol] Trace Negative [facility] - UrinalysisOrder ed By: Gypsy Mcmahon on 02-16-2022 Hyaline casts LM Ql (Urine sed) 9-19 [LPF] 0-8 [facility] Nitrite Test strip Ql (U)Ord ered By: Gypsy Mcmahon on 02-16-2022 Nitrite Ql (U) Positive Negative [facility] Protein Auto test strip (U) [Mass/Vol]Ordered By: Gypsy Mcmahon on 02-16-2022 Protein (U) [Mass/Vol] Negative Negative [facility] Specific gravity Auto test s trip (U) [Rel density]Ordered By: Gypsy Mcmahon on 02-16-2022 Specific gravity (U) [Rel density] 1.018 1.001-1.03 0 [facility] Squamous epithelial cells de tection in urine sediment by light microscopyOrdered By: Gypsy Mcmahon on 02-16-2022 Epithelial cells.squamous LM Ql (Urine sed) 5-9 [HPF] 0-2 [facility] Urine Cultureon 02-16-2022 Urine Culture >100,000 [employer] Other Urine Culture <16 Susceptible [employer] Other Urine Culture <8/4 Susceptible [employer] Other Urine Culture <4 Susceptible [employer] Other Urine Culture <2 Susceptible [employer] Other Urine Culture <1 Susceptible [employer] Other Urine Culture <0.25 Susceptible [employer] Other Urine Culture <0.5 Susceptible [employer] Other Urine Culture <32 Susceptible [employer] Other Urine Culture <0.5/9.5 Susceptible [employer] Other Urine bacteria detection by automated methodOrdered By: Gypsy Mcmahon on 02-16-2022 Bacteria Auto Ql (U) 2+ None Seen [facility] Urine clarity by refractomet ry automatedOrdered By: Gypsy Mcmahon on 02-16-2022 Clarity Refractometry automated (U) Cloudy Clear [facility] Urine culture routineOrdered By: Gypsy Mcmahon on 02-16-2022 Bacteria identified Cx Nom (U) Klebsiella variicola [facility] Urine glucose measurement by automated test strip (mass/volume)Ordered By: Gypsy Mcmahon on 02-16-2022 Glucose Auto test strip (U) [Mass/Vol] Normal mg/dL Normal [facility] Urine hemoglobin detection b y automated test stripOrdered By: Gypsy Mcmahon on 02-16-2022 Hemoglobin Auto test strip Ql (U) Negative Negative [facility] Urine leukocyte esterase det ection by automated test stripOrdered By: Gypsy Mcmahon on 02-16-2022 Leukocyte esterase Auto test strip Ql (U) 2+ Negative [facility] Urobilinogen Auto test strip (U) [Mass/Vol]Ordered By: Gypsy Mcmahon on 02-16-2022 Urobilinogen (U) [Mass/Vol] Normal mg/dL Normal [facility] pH Auto test strip (U)Ordere d By: Gypsy Mcmahon on 02-16-2022 pH (U) 5.5 [pH] 5.0-9.0 [facility] CBC AUTO DIFFon 01-15-2022 BASO # 0.0 103/ul Normal 0.0-0.1 [facility] Comment on above: Performed By: #### C BC #### [facility] [address] [place] [address] Dr. Anthony Bonilla Basophils/100 WBC (Bld) 0.5 % Normal 0.2-2.0 [facility] Comment on above: Performed By: #### C BC #### [facility] [address] [place] [address] Dr. Anthony Bonilla EO # 0.1 103/ul Normal 0.0-0.7 [facility] Comment on above: Performed By: #### C BC #### [facility] [address] [place] [address] Dr. Anthony Bonilla Eosinophils/100 WBC (Bld) 0.9 % Normal 0.9-7.0 [facility] Comment on above: Performed By: #### C BC #### [facility] [address] [place] [address] Dr. Anthony Bonilla Erythrocyte distribution width (RBC) [Ratio] 14.8 % Normal 11.0-15.0 [facility] Comment on above: Performed By: #### C BC #### [facility] [address] [place] [address] Dr. Anthony Bonilla Hematocrit (Bld) [Volume fraction] 30.3 % Critically low 36.0-48.0 [facility] Comment on above: Performed By: #### C BC #### [facility] [address] [place] [address] Dr. Anthony Bonilla Hemoglobin (Bld) [Mass/Vol] 9.8 g/dL Critically low 12.0-16.0 [facility] Comment on above: Performed By: #### C BC #### [facility] [address] [place] [place] [address] [place]. Anthony Bonilla IG # 0.03 10e3/ul Normal 0.00-0.03 [facility] Comment on above: Performed By: #### C BC #### [facility] [address] [place] [address] Dr. Anthony Bonilla IG % 0.3 % Normal 0.0-0.5 [facility] Comment on above: Performed By: #### C BC #### [facility] [address] [place] [address] Dr. Anthony Bonilla LYMPH # 1.4 103/ul Normal 1.2-3.8 [facility] Comment on above: Performed By: #### C BC #### [facility] [address] [place] [address] Dr. Anthony Bonilla Lymphocytes/100 WBC (Bld) 15.7 % Critically low 20.5-60.0 [facility] Comment on above: Performed By: #### C BC #### [facility] [address] [place] [address] Dr. Anthony Bonilla MANUAL DIFF REQ NO Normal [facility] Comment on above: Performed By: #### C BC #### [facility] [address] [place] [address] Dr. Anthony Bonilla MCH (RBC) [Entitic mass] 30.0 pg Normal 26.7-34.0 [facility] Comment on above: Performed By: #### C BC #### [facility] [address] [place] [address] Dr. Anthony Bonilla MCHC (RBC) [Mass/Vol] 32.3 g/dL Normal 29.9-35.2 [facility] Comment on above: Performed By: #### C BC #### [facility] [address] [place] [address] Dr. Anthony Bonilla MCV (RBC) [Entitic vol] 92.7 fL Normal 81.0-99.0 [facility] Comment on above: Performed By: #### C BC #### [facility] [address] [place] [address] Dr. Anthony Bonilla MONO # 1.1 103/ul Critically high 0.3-0.8 [facility] Comment on above: Performed By: #### C BC #### [facility] [address] [place] [address] Dr. Anthony Bonilla Monocytes/100 WBC (Bld) 12.0 % Normal 1.7-12.0 [facility] Comment on above: Performed By: #### C BC #### [facility] [address] [place] [address] Dr. Anthony Bonilla NEUT # 6.2 103/ul Normal 1.4-6.5 [facility] Comment on above: Performed By: #### C BC #### [facility] [address] [address] [address] Anthony Bonilla Neutrophils/100 WBC (Bld) 70.6 % Normal 43.0-75.0 [facility] Comment on above: Performed By: #### C BC #### [facility] [address] [address] [address] Anthony Bonilla Platelet mean volume (Bld) [Entitic vol] 9.8 fL Normal 9.5-13.5 [facility] Comment on above: Performed By: #### C BC #### [facility] [address] [address] [address] Anthony Bonilla PLT 305 103/ul Normal 150-450 [facility] Comment on above: Performed By: #### C BC #### [facility] [address] [address] [address] Anthony Bonilla RBC 3.27 106/ul Critically low 4.20-5.40 [facility] Comment on above: Performed By: #### C BC #### [facility] [address] [address] [address] Anthony Bonilla WBC 8.7 103/ul Normal 4.0-11.0 [facility] Comment on above: Performed By: #### C BC #### [facility] [address] [address] [address] Anthony Bonilla PROF CHEM 8 (BAS METB)on Anion gap [Moles/Vol] 12.2 mmol/L Normal [facility] Comment on above: Performed By: #### U RCX #### [facility] [address] [address] [address] Anthony Bonilla Calcium [Mass/Vol] 9.1 mg/dL Normal 8.5-10.1 [facility] Comment on above: Performed By: #### U RCX #### [facility] [address] [address] [address] Anthony Bonilla Chloride [Moles/Vol] 104 mmol/L Normal 98-107 [facility] Comment on above: Performed By: #### U RCX #### [facility] [address] [address] [address] Anthony Bonilla CO2 [Moles/Vol] 24.4 mmol/L Normal 21.0-32.0 [facility] Comment on above: Performed By: #### U RCX #### [facility] [address] [address] [address] Anthony Bonilla Creatinine [Mass/Vol] 1.20 mg/dL Critically high 0.55-1.02 [facility] Comment on above: Performed By: #### U RCX #### [facility] [address] [address] [address] Anthony Bonilla EGFR-AF AZERBAIJANI 52 mL/min/1.73m2 Critically low >=60 [facility] Comment on above: Performed By: #### U RCX #### [facility] [address] [address] [address] Anthony Bonilla EGFR-NON AF AZERBAIJANI 43 mL/min/1.73m2 Critically low >=60 [facility] Comment on above: Performed By: #### U RCX #### [facility] [address] [address] [address] Anthony Bonilla Glucose [Mass/Vol] 81 mg/dL Normal 74-106 [facility] Comment on above: Performed By: #### U RCX #### [facility] [address] [address] [address] Anthony Bonilla Potassium [Moles/Vol] 3.6 mmol/L Normal 3.5-5.1 [facility] Comment on above: Performed By: #### U RCX #### [facility] [address] [address] [address] Anthony Bonilla Sodium [Moles/Vol] 137 mmol/L Normal 136-145 [facility] Comment on above: Performed By: #### U RCX #### [facility] [address] [address] [address] Anthony Bonilla Urea nitrogen [Mass/Vol] 21.0 mg/dL Critically high 7.0-18.0 [facility] Comment on above: Performed By: #### U RCX #### [facility] [address] [place] [address] Dr. Anthony Bonilla Urea nitrogen/Creatinine [Mass ratio] 17.5 mg/mg Normal [facility] Comment on above: Performed By: #### U RCX #### [facility] [address] [place] [address] Dr. Anthony Bonilla CULTURE URINEon 12-29-2021 CULTURE [...] Trimethoprim/Sulfametho xazole <=20 S F Normal [facility] Comment on above: Performed By: #### U RCX #### [facility] [address] [place] [address] Dr. Anthony Bonilla ER URINE PROFILEon 2 Bilirubin Ql (U) SMALL Abnormal NEGATIVE [facility] Comment on above: Performed By: #### C BC #### [facility] [address] [place] [address] Dr. Anthony Bonilla Clarity (U) SL CLOUDY Abnormal CLEAR [facility] Comment on above: Performed By: #### C BC #### [facility] [address] [place] [address] Dr. Anthony Bonilla Color (U) YELLOW Normal YELLOW [facility] Comment on above: Performed By: #### C BC #### [facility] [address] [place] [address] Dr. Anthony ECHAVARRIAAHFady A micrscopic examination will be performed if indicated. Normal [facility] Comment on above: Performed By: #### C BC #### [facility] [address] [place] [address] Dr. Anthony Bonilla Glucose Ql (U) Negative Normal NEGATIVE [facility] Comment on above: Performed By: #### C BC #### [facility] [address] [place] [address] Dr. Anthony Bonilla Hemoglobin Ql (U) Negative Normal NEGATIVE [facility] Comment on above: Performed By: #### C BC #### [facility] [address] [place] [address] Dr. Anthony Bonilla Ketones Ql (U) TRACE Abnormal NEGATIVE [facility] Comment on above: Performed By: #### C BC #### [facility] [address] [place] [address] Dr. Anthony Bonilla LEUKOCYTES MODERATE Abnormal NEGATIVE [facility] Comment on above: Performed By: #### C BC #### [facility] [address] [place] [address] Dr. Anthony Bonilla Nitrite Ql (U) Positive Abnormal NEGATIVE [facility] Comment on above: Performed By: #### C BC #### [facility] [address] [place] [address] Dr. Anthony Bonilla pH (U) 7.5 [pH] Normal 5-9 [facility] Comment on above: Performed By: #### C BC #### [facility] [address] [place] [address] Dr. Anthony Bonilla Protein (U) [Mass/Vol] 30 mg/dL Abnormal NEGAT JUDAH/ TRACE [facility] Comment on above: Performed By: #### C BC #### [facility] [address] [place] [address] Dr. Anthony Bonilla SPEC GRAVITY 1.020 Normal 1.005-<=1. 025 [facility] Comment on above: Performed By: #### C BC #### [facility] [address] [place] [address] Dr. Anthony Bonilla UR MICRO IND INDICATED Normal [facility] Comment on above: Performed By: #### C BC #### [facility] [address] [place] [address] Dr. Anthony Bonilla Urobilinogen Qn (U) 0.2 {Gen'U}/dL Normal 0.2 - 1. 0 [facility] Comment on above: Performed By: #### C BC #### [facility] [address] [place] [address] Dr. Anthony Bonilla URINE MICROSCOPIC ONLYon BACTERIA TRACE Abnormal NONE SEEN [facility] Comment on above: Performed By: #### C BC #### [facility] [address] [place] [address] Dr. Anthony Bonilla Bacteria identified Cx Nom (U) INDICATED Normal [facility] Comment on above: Performed By: #### C BC #### [facility] [address] [place] [address] Dr. Anthony Bonilla CAST NONE SEEN Normal NONE SEEN [facility] Comment on above: Performed By: #### C BC #### [facility] [address] [place] [address] Dr. Anthony Bonilla Crystals LM Nom (Urine sed) NONE SEEN Normal NONE SEEN [facility] Comment on above: Performed By: #### C BC #### [facility] [address] [place] [address] Dr. Anthony Bonilla Epithelial cells LM Ql (Urine sed) FEW Abnormal NONE SEEN /RARE [facility] Comment on above: Performed By: #### C BC #### [facility] [address] [place] [address] Dr. Anthony Bonilla MUCOUS NONE SEEN Normal NONE SEEN [facility] Comment on above: Performed By: #### C BC #### [facility] [address] [place] [address] Dr. Anthony Bonilla RBC 0-2 Normal 0-2 [facility] Comment on above: Performed By: #### C BC #### [facility] [address] [place] [address] Dr. Anthony Bonilla WBC 5-10 Abnormal NONE SEEN [facility] Comment on above: Performed By: #### C BC #### [facility] [address] [place] [address] Dr. Anthony Bonilla PRBC LEUKOREDUCEDon 11-20-19 PRBC LEUKOREDUCED Cross Match Result Compatible Unit Blood Type A Pos Unit Number [id number] Status Information Transfused Product ID Red Blood Cells Product Code [id number] Normal [facility] Comment on above: Performed By: #### P RBC #### [facility] [address] [place] [address] Dr. Anthony Bonilla CBC AUTO DIFFon 11-10-2021 BASO # 0.0 103/ul Normal 0.0-0.1 [facility] Comment on above: Performed By: #### C BC #### [facility] [address] [place] [address] Dr. Anthony Bonilla Basophils/100 WBC (Bld) 0.7 % Normal 0.2-2.0 [facility] Comment on above: Performed By: #### C BC #### [facility] [address] [place] [address] Dr. Anthony Bonilla EO # 0.2 103/ul Normal 0.0-0.7 [facility] Comment on above: Performed By: #### C BC #### [facility] [address] [place] [address] Dr. Anthony Bonilla Eosinophils/100 WBC (Bld) 2.7 % Normal 0.9-7.0 [facility] Comment on above: Performed By: #### C BC #### [facility] [address] [place] [address] Dr. Anthony Bonilla Erythrocyte distribution width (RBC) [Ratio] 16.3 % Critically high 11.0-15.0 [facility] Comment on above: Performed By: #### C BC #### [facility] [address] [place] [address] Dr. Anthony Bonilla Hematocrit (Bld) [Volume fraction] 29.0 % Critically low 36.0-48.0 [facility] Comment on above: Performed By: #### C BC #### [facility] [address] [place] [address] Dr. Anthony Bonilla Hemoglobin (Bld) [Mass/Vol] 9.4 g/dL Critically low 12.0-16.0 [facility] Comment on above: Performed By: #### C BC #### [facility] [address] [place] [address] Dr. Anthony Bonilla IG # 0.04 10e3/ul Critically high 0.00-0.03 [facility] Comment on above: Performed By: #### C BC #### [facility] [address] [place] [address] Dr. Anthony Bonilla IG % 0.7 % Critically high 0.0-0.5 [facility] Comment on above: Performed By: #### C BC #### [facility] [address] [place] [address] Dr. Anthony Bonilla LYMPH # 1.2 103/ul Normal 1.2-3.8 [facility] Comment on above: Performed By: #### C BC #### [facility] [address] [place] [address] Dr. Anthony Bonilla Lymphocytes/100 WBC (Bld) 21.5 % Normal 20.5-60.0 [facility] Comment on above: Performed By: #### C BC #### [facility] [address] [place] [address] Dr. Anthony Bonilla MANUAL DIFF REQ NO Normal [facility] Comment on above: Performed By: #### C BC #### [facility] [address] [place] [address] Dr. Anthony Bonilla MCH (RBC) [Entitic mass] 32.3 pg Normal 26.7-34.0 [facility] Comment on above: Performed By: #### C BC #### [facility] [address] [address] [address] Anthony Bonilla MCHC (RBC) [Mass/Vol] 32.4 g/dL Normal 29.9-35.2 [facility] Comment on above: Performed By: #### C BC #### [facility] [address] [address] [address] Anthony Bonilla MCV (RBC) [Entitic vol] 99.7 fL Critically high 81.0-99.0 [facility] Comment on above: Performed By: #### C BC #### [facility] [address] [address] [address] Anthony Bonilla MONO # 0.7 103/ul Normal 0.3-0.8 [facility] Comment on above: Performed By: #### C BC #### [facility] [address] [address] [address] Anthony Bonilla Monocytes/100 WBC (Bld) 12.6 % Critically high 1.7-12.0 [facility] Comment on above: Performed By: #### C BC #### [facility] [address] [place] [address] Dr. Anthony Bonilla NEUT # 3.4 103/ul Normal 1.4-6.5 [facility] Comment on above: Performed By: #### C BC #### [facility] [address] [address] [address] Anthony Bonilla Neutrophils/100 WBC (Bld) 61.8 % Normal 43.0-75.0 [facility] Comment on above: Performed By: #### C BC #### [facility] [address] [address] [address] Anthony Bonilla Platelet mean volume (Bld) [Entitic vol] 9.0 fL Critically low 9.5-13.5 [facility] Comment on above: Performed By: #### C BC #### [facility] [address] [address] [address] Anthony Bonilla PLT 429 103/ul Normal 150-450 [facility] Comment on above: Performed By: #### C BC #### [facility] [address] [address] [address] Anthony Bonilla RBC 2.91 106/ul Critically low 4.20-5.40 [facility] Comment on above: Performed By: #### C BC #### [facility] [address] [address] [address] Anthony Bonilla WBC 5.5 103/ul Normal 4.0-11.0 [facility] Comment on above: Performed By: #### C BC #### [facility] [address] [address] [address] Anthony Bonilla PROF CHEM 8 (BAS METB)on Anion gap [Moles/Vol] 11.0 mmol/L Normal [facility] Comment on above: Performed By: #### B MP #### [facility] [address] [address] [address] Anthony Bonilla Calcium [Mass/Vol] 9.2 mg/dL Normal 8.5-10.1 [facility] Comment on above: Performed By: #### B MP #### [facility] [address] [address] [address] Anthony Bonilla Chloride [Moles/Vol] 107 mmol/L Normal 98-107 [facility] Comment on above: Performed By: #### B MP #### [facility] [address] [address] [address] Anthony Bonilla CO2 [Moles/Vol] 27.4 mmol/L Normal 21.0-32.0 [facility] Comment on above: Performed By: #### B MP #### [facility] [address] [address] [address] Anthony Bonilla Creatinine [Mass/Vol] 1.12 mg/dL Critically high 0.55-1.02 [facility] Comment on above: Performed By: #### B MP #### [facility] [address] [address] [address] Anthony Bonilla EGFR-AF AZERBAIJANI 56 mL/min/1.73m2 Critically low >=60 [facility] Comment on above: Performed By: #### B MP #### [facility] [address] [address] [address] Anthony Bonilla EGFR-NON AF AZERBAIJANI 46 mL/min/1.73m2 Critically low >=60 [facility] Comment on above: Performed By: #### B MP #### [facility] [address] [address] [address] Anthony Bonilla Glucose [Mass/Vol] 89 mg/dL Normal 74-106 [facility] Comment on above: Performed By: #### B MP #### [facility] [address] [address] [address] Anthony Bonilla Potassium [Moles/Vol] 4.4 mmol/L Normal 3.5-5.1 [facility] Comment on above: Performed By: #### B MP #### [facility] [address] [address] [address] Anthony Bonilla Sodium [Moles/Vol] 141 mmol/L Normal 136-145 [facility] Comment on above: Performed By: #### B MP #### [facility] [address] [address] [address] Anthony Bonilla Urea nitrogen [Mass/Vol] 18.0 mg/dL Normal 7.0-18.0 [facility] Comment on above: Performed By: #### B MP #### [facility] [address] [address] [address] Anthony Bonilla Urea nitrogen/Creatinine [Mass ratio] 16.1 mg/mg Normal [facility] Comment on above: Performed By: #### B MP #### [facility] [address] [address] [address] Anthony Bonilla CBC AUTO DIFFon 11-04-2021 BASO # 0.0 103/ul Normal 0.0-0.1 [facility] Comment on above: Performed By: #### C BC #### [facility] [address] [address] [address] Anthony Bonilla Basophils/100 WBC (Bld) 0.2 % Normal 0.2-2.0 [facility] Comment on above: Performed By: #### C BC #### [facility] [address] [address] [address] Anthony Bonilla EO # 0.1 103/ul Normal 0.0-0.7 [facility] Comment on above: Performed By: #### C BC #### [facility] [address] [address] [address] Anthony Bonilla Eosinophils/100 WBC (Bld) 0.8 % Critically low 0.9-7.0 [facility] Comment on above: Performed By: #### C BC #### [facility] [address] [place] [address] Dr. Anthony Bonilla Erythrocyte distribution width (RBC) [Ratio] 16.7 % Critically high 11.0-15.0 [facility] Comment on above: Performed By: #### C BC #### [facility] [address] [place] [address] Dr. Anthony Bonilla Hematocrit (Bld) [Volume fraction] 25.6 % Critically low 36.0-48.0 [facility] Comment on above: Performed By: #### C BC #### [facility] [address] [place] [address] Dr. Anthony Bonilla Hemoglobin (Bld) [Mass/Vol] 8.5 g/dL Critically low 12.0-16.0 [facility] Comment on above: Performed By: #### C BC #### [facility] [address] [place] [address] Dr. Anthony Bonilla IG # 0.05 10e3/ul Critically high 0.00-0.03 [facility] Comment on above: Performed By: #### C BC #### [facility] [address] [place] [address] Dr. Anthony Bonilla IG % 0.5 % Normal 0.0-0.5 [facility] Comment on above: Performed By: #### C BC #### [facility] [address] [place] [address] Dr. Anthony Bonilla LYMPH # 0.6 103/ul Critically low 1.2-3.8 [facility] Comment on above: Performed By: #### C BC #### [facility] [address] [place] [address] Dr. Anthony Bonilla Lymphocytes/100 WBC (Bld) 6.2 % Critically low 20.5-60.0 [facility] Comment on above: Performed By: #### C BC #### [facility] [address] [place] [address] Dr. Anthony Bonilla MANUAL DIFF REQ NO Normal [facility] Comment on above: Performed By: #### C BC #### [facility] [address] [place] [address] Dr. Anthony Bonilla MCH (RBC) [Entitic mass] 31.6 pg Normal 26.7-34.0 [facility] Comment on above: Performed By: #### C BC #### [facility] [address] [place] [address] Dr. Anthony Bonilla MCHC (RBC) [Mass/Vol] 33.2 g/dL Normal 29.9-35.2 [facility] Comment on above: Performed By: #### C BC #### [facility] [address] [place] [address] Dr. Anthony Bonilla MCV (RBC) [Entitic vol] 95.2 fL Normal 81.0-99.0 [facility] Comment on above: Performed By: #### C BC #### [facility] [address] [place] [address] Dr. Anthony Bonilla MONO # 0.6 103/ul Normal 0.3-0.8 [facility] Comment on above: Performed By: #### C BC #### [facility] [address] [place] [address] Dr. Anthony Bonilla Monocytes/100 WBC (Bld) 6.1 % Normal 1.7-12.0 [facility] Comment on above: Performed By: #### C BC #### [facility] [address] [place] [address] Dr. Anthony Bonilla NEUT # 8.8 103/ul Critically high 1.4-6.[address] [facility] Comment on above: Performed By: #### C BC #### [facility] [address] [address] [address] Anthony Bonilla Neutrophils/100 WBC (Bld) 86.2 % Critically high 43.0-75.0 [facility] Comment on above: Performed By: #### C BC #### [facility] [address] [address] [address] Anthony Bonilla Platelet mean volume (Bld) [Entitic vol] 9.8 fL Normal 9.5-13.5 [facility] Comment on above: Performed By: #### C BC #### [facility] [address] [address] [address] Anthony Bonilla PLT 156 103/ul Normal 150-450 [facility] Comment on above: Performed By: #### C BC #### [facility] [address] [place] [address] Dr. Anthony Bonilla RBC 2.69 106/ul Critically low 4.20-5.40 [facility] Comment on above: Performed By: #### C BC #### [facility] [address] [address] [address] Anthony Bonilla WBC 10.3 103/ul Normal 4.0-11.0 [facility] Comment on above: Performed By: #### C BC #### [facility] [address] [place] [address] Dr. Anthony Bonilla CULTURE URINEon 11-04-2021 CULTURE [...] Trimethoprim/Sulfametho xazole <=20 S F Normal [facility] Comment on above: Performed By: #### U RCX #### [facility] [address] [address] [address] Anthony Bonilla PROF CHEM 8 (BAS METB)on Anion gap [Moles/Vol] 12.9 mmol/L Normal [facility] Comment on above: Performed By: #### U RCX #### [facility] [address] [address] [address] Anthony Bonilla Calcium [Mass/Vol] 8.6 mg/dL Normal 8.5-10.1 [facility] Comment on above: Performed By: #### U RCX #### [facility] [address] [place] [address] Dr. Anthony Bonilla Chloride [Moles/Vol] 108 mmol/L Critically high 98-107 [facility] Comment on above: Performed By: #### U RCX #### [facility] [address] [place] [address] Dr. Anthony Bonilla CO2 [Moles/Vol] 23.1 mmol/L Normal 21.0-32.0 [facility] Comment on above: Performed By: #### U RCX #### [facility] [address] [place] [address] Dr. Anthony Bonilla Creatinine [Mass/Vol] 0.98 mg/dL Normal 0.55-1.02 [facility] Comment on above: Performed By: #### U RCX #### [facility] [address] [place] [address] Dr. Anthony Bonilla EGFR-AF AZERBAIJANI >60 Normal >=60 [facility] [facility] Comment on above: Performed By: #### U RCX #### [facility] [address] [place] [address] Dr. Anthony Bonilla EGFR-NON AF AZERBAIJANI 54 mL/min/1.73m2 Critically low >=60 [facility] Comment on above: Performed By: #### U RCX #### [facility] [address] [place] [address] Dr. Anthony Bonilla Glucose [Mass/Vol] 86 mg/dL Normal 74-106 [facility] Comment on above: Performed By: #### U RCX #### [facility] [address] [address] [address] Anthony Bonilla Potassium [Moles/Vol] 4.0 mmol/L Normal 3.5-5.1 [facility] Comment on above: Performed By: #### U RCX #### [facility] [address] [address] [address] Anthony Bonilla Sodium [Moles/Vol] 140 mmol/L Normal 136-145 [facility] Comment on above: Performed By: #### U RCX #### [facility] [address] [address] [address] Anthony Bonilla Urea nitrogen [Mass/Vol] 31.0 mg/dL Critically high 7.0-18.0 [facility] Comment on above: Performed By: #### U RCX #### [facility] [address] [place] [address] Dr. Anthony Bonilla Urea nitrogen/Creatinine [Mass ratio] 31.6 mg/mg Normal [facility] Comment on above: Performed By: #### U RCX #### [facility] [address] [place] [address] Dr. Anthony Bonilla CBC AUTO DIFFon 11-03-2021 BASO # 0.0 103/ul Normal 0.0-0.1 [facility] Comment on above: Performed By: #### C BC #### [facility] [address] [place] [address] Dr. Anthony Bonilla Basophils/100 WBC (Bld) 0.3 % Normal 0.2-2.0 [facility] Comment on above: Performed By: #### C BC #### [facility] [address] [place] [address] Dr. Anthony Bonilla EO # 0.1 103/ul Normal 0.0-0.7 [facility] Comment on above: Performed By: #### C BC #### [facility] [address] [place] [address] Dr. Anthony Bonilla Eosinophils/100 WBC (Bld) 0.6 % Critically low 0.9-7.0 [facility] Comment on above: Performed By: #### C BC #### [facility] [address] [address] [address] Anthony Bonilla Erythrocyte distribution width (RBC) [Ratio] 14.0 % Normal 11.0-15.0 [facility] Comment on above: Performed By: #### C BC #### [facility] [address] [place] [address] Dr. Anthony Bonilla Hematocrit (Bld) [Volume fraction] 23.1 % Critically low 36.0-48.0 [facility] Comment on above: Result Comment: Flui ds given Performed By: #### C BC #### [facility] [address] [place] [address] Dr. Anthony Bonilla Hemoglobin (Bld) [Mass/Vol] 7.6 g/dL Critically low 12.0-16.0 [facility] Comment on above: Performed By: #### C BC #### [facility] [address] [place] [address] Dr. Anthony Bonilla IG # 0.07 10e3/ul Critically high 0.00-0.03 [facility] Comment on above: Performed By: #### C BC #### [facility] [address] [place] [address] Dr. Anthony Bonilla IG % 0.6 % Critically high 0.0-0.5 [facility] Comment on above: Performed By: #### C BC #### [facility] [address] [place] [address] Dr. Anthony Bonilla LYMPH # 0.7 103/ul Critically low 1.2-3.8 [facility] Comment on above: Performed By: #### C BC #### [facility] [address] [place] [address] Dr. Anthony Bonilla Lymphocytes/100 WBC (Bld) 5.7 % Critically low 20.5-60.0 [facility] Comment on above: Performed By: #### C BC #### [facility] [address] [place] [address] Dr. Anthony Bonilla MANUAL DIFF REQ NO Normal [facility] Comment on above: Performed By: #### C BC #### [facility] [address] [place] [address] Dr. Anthony Bonilla MCH (RBC) [Entitic mass] 32.6 pg Normal 26.7-34.0 [facility] Comment on above: Performed By: #### C BC #### [facility] [address] [place] [address] Dr. Anthony Bonilla MCHC (RBC) [Mass/Vol] 32.9 g/dL Normal 29.9-35.2 [facility] Comment on above: Performed By: #### C BC #### [facility] [address] [place] [address] Dr. Anthony Bonilla MCV (RBC) [Entitic vol] 99.1 fL Critically high 81.0-99.0 [facility] Comment on above: Performed By: #### C BC #### [facility] [address] [place] [address] Dr. Anthony Bonilla MONO # 0.8 103/ul Normal 0.3-0.8 [facility] Comment on above: Performed By: #### C BC #### [facility] [address] [place] [address] Dr. Anthony Bonilla Monocytes/100 WBC (Bld) 6.8 % Normal 1.7-12.0 [facility] Comment on above: Performed By: #### C BC #### [facility] [address] [place] [address] Dr. Anthony Bonilla NEUT # 9.8 103/ul Critically high 1.4-6.5 [facility] Comment on above: Performed By: #### C BC #### [facility] [address] [place] [address] Dr. Anthony Bonilla Neutrophils/100 WBC (Bld) 86.0 % Critically high 43.0-75.0 [facility] Comment on above: Performed By: #### C BC #### [facility] [address] [place] [address] Dr. Anthony Bonilla Platelet mean volume (Bld) [Entitic vol] 9.5 fL Normal 9.5-13.5 [facility] Comment on above: Performed By: #### C BC #### [facility] [address] [place] [address] Dr. Anthony Bonilla PLT 160 103/ul Normal 150-450 [facility] Comment on above: Performed By: #### C BC #### [facility] [address] [place] [address] Dr. Anthony Bonilla RBC 2.33 106/ul Critically low 4.20-5.40 [facility] Comment on above: Performed By: #### C BC #### [facility] [address] [place] [address] Dr. Anthony Bonilla WBC 11.4 103/ul Critically high 4.0-11.0 [facility] Comment on above: Performed By: #### C BC #### [facility] [address] [place] [address] Dr. Anthony Bonilla HEMOGLOBIN AND HEMATOCRITon 11-03-2021 Hematocrit (Bld) [Volume fraction] 27.0 % Critically low 36.0-48.0 [facility] Comment on above: Performed By: #### U RCX #### [facility] [address] [place] [address] Dr. Anthony Bonilla Hemoglobin (Bld) [Mass/Vol] 9.1 g/dL Critically low 12.0-16.0 [facility] Comment on above: Performed By: #### U RCX #### [facility] [address] [place] [address] Dr. Anthony Bonilla OCC BLD IMMUNO SCREENon 10-10 OCCULT BLOOD Positive Abnormal NEGATIVE [facility] Comment on above: Performed By: #### C BC #### [facility] [address] [place] [address] Dr. Anthony Bonilla PROF CHEM 8 (BAS METB)on Anion gap [Moles/Vol] 10.7 mmol/L Normal [facility] Comment on above: Performed By: #### C BC #### [facility] [address] [place] [address] Dr. Anthony Bonilla Calcium [Mass/Vol] 8.6 mg/dL Normal 8.5-10.1 [facility] Comment on above: Performed By: #### C BC #### [facility] [address] [address] [address] Anthony Bonilla Chloride [Moles/Vol] 107 mmol/L Normal 98-107 [facility] Comment on above: Performed By: #### C BC #### [facility] [address] [address] [address] Anthony Bonilla CO2 [Moles/Vol] 24.4 mmol/L Normal 21.0-32.0 [facility] Comment on above: Performed By: #### C BC #### [facility] [address] [place] [address] Dr. Anthony Bonilla Creatinine [Mass/Vol] 0.98 mg/dL Normal 0.55-1.02 [facility] Comment on above: Performed By: #### C BC #### [facility] [address] [place] [address] Dr. Anthony Bonilla EGFR-AF AZERBAIJANI >60 Normal >=60 [facility] Comment on above: Performed By: #### C BC #### [facility] [address] [place] [address] Dr. Anthony Bonilla EGFR-NON AF AZERBAIJANI 54 mL/min/1.73m2 Critically low >=60 [facility] Comment on above: Performed By: #### C BC #### [facility] [address] [address] [address] Anthony Bonilla Glucose [Mass/Vol] 98 mg/dL Normal 74-106 [facility] Comment on above: Performed By: #### C BC #### [facility] [address] [place] [address] Dr. Anthony Bonilla Potassium [Moles/Vol] 4.1 mmol/L Normal 3.5-5.1 [facility] Comment on above: Performed By: #### C BC #### [facility] [address] [place] [address] Dr. Anthony Bonilla Sodium [Moles/Vol] 138 mmol/L Normal 136-145 [facility] Comment on above: Performed By: #### C BC #### [facility] [address] [place] [address] Dr. Anthony Bonilla Urea nitrogen [Mass/Vol] 43.0 mg/dL Critically high 7.0-18.0 [facility] Comment on above: Performed By: #### C BC #### [facility] [address] [place] [address] Dr. Anthony Bonilla Urea nitrogen/Creatinine [Mass ratio] 43.9 mg/mg Normal [facility] Comment on above: Performed By: #### C BC #### [facility] [address] [place] [address] Dr. Anthony Bonilla TYPE AND SCREENon 11-03-2021 TYPE AND SCREEN Negative Normal [facility] Comment on above: Performed By: #### C BC #### [facility] [address] [place] [address] Dr. Anthony Bonilla CBC AUTO DIFFon 11-02-2021 BASO # 0.0 103/ul Normal 0.0-0.1 [facility] Comment on above: Performed By: #### U RCX #### [facility] [address] [place] [address] Dr. Anthony Bonilla Basophils/100 WBC (Bld) 0.3 % Normal 0.2-2.0 [facility] Comment on above: Performed By: #### U RCX #### [facility] [address] [place] [address] Dr. Anthony Bonilla EO # 0.0 103/ul Normal 0.0-0.7 [facility] Comment on above: Performed By: #### U RCX #### [facility] [address] [place] [address] Dr. Anthony Bonilla Eosinophils/100 WBC (Bld) 0.1 % Critically low 0.9-7.0 [facility] Comment on above: Performed By: #### U RCX #### [facility] [address] [place] [address] Dr. Anthony Bonilla Erythrocyte distribution width (RBC) [Ratio] 13.9 % Normal 11.0-15.0 [facility] Comment on above: Performed By: #### U RCX #### [facility] [address] [place] [address] Dr. Anthony Bonilla Hematocrit (Bld) [Volume fraction] 31.8 % Critically low 36.0-48.0 [facility] Comment on above: Performed By: #### U RCX #### [facility] [address] [place] [address] Dr. Anthony Bonilla Hemoglobin (Bld) [Mass/Vol] 10.5 g/dL Critically low 12.0-16.0 [facility] Comment on above: Performed By: #### U RCX #### [facility] [address] [place] [address] Dr. Anthony Bonilla IG # 0.07 10e3/ul Critically high 0.00-0.03 [facility] Comment on above: Performed By: #### U RCX #### [facility] [address] [place] [address] Dr. Anthony Bonilla IG % 0.5 % Normal 0.0-0.5 [facility] Comment on above: Performed By: #### U RCX #### [facility] [address] [place] [address] Dr. Anthony Bonilla LYMPH # 0.9 103/ul Critically low 1.2-3.8 [facility] Comment on above: Performed By: #### U RCX #### [facility] [address] [place] [address] Dr. Anthony Bonilla Lymphocytes/100 WBC (Bld) 6.1 % Critically low 20.5-60.0 [facility] Comment on above: Performed By: #### U RCX #### [facility] [address] [place] [address] Dr. Anthony Bonilla MANUAL DIFF REQ NO Normal [facility] Comment on above: Performed By: #### U RCX #### [facility] [address] [place] [address] Dr. Anthony Bonilla MCH (RBC) [Entitic mass] 32.7 pg Normal 26.7-34.0 [facility] Comment on above: Performed By: #### U RCX #### [facility] [address] [place] [address] Dr. Anthony Bonilla MCHC (RBC) [Mass/Vol] 33.0 g/dL Normal 29.9-35.2 [facility] Comment on above: Performed By: #### U RCX #### [facility] [address] [place] [address] Dr. Anthony Bonilla MCV (RBC) [Entitic vol] 99.1 fL Critically high 81.0-99.0 [facility] Comment on above: Performed By: #### U RCX #### [facility] [address] [place] [address] Dr. Anthony Bonilla MONO # 1.0 103/ul Critically high 0.3-0.[address] [facility] Comment on above: Performed By: #### U RCX #### [facility] [address] [place] [address] Dr. Anthony Bonilla Monocytes/100 WBC (Bld) 6.8 % Normal 1.7-12.0 [facility] Comment on above: Performed By: #### U RCX #### [facility] [address] [place] [address] Dr. Anthony Bonilla NEUT # 12.1 103/ul Critically high 1.4-6.5 [facility] Comment on above: Performed By: #### U RCX #### [facility] [address] [place] [address] Dr. Anthony Bonilla Neutrophils/100 WBC (Bld) 86.2 % Critically high 43.0-75.0 [facility] Comment on above: Performed By: #### U RCX #### [facility] [address] [place] [address] Dr. Anthony Bonilla Platelet mean volume (Bld) [Entitic vol] 9.8 fL Normal 9.5-13.5 [facility] Comment on above: Performed By: #### U RCX #### [facility] [address] [place], [place] [id number] Dr. Anthony Bonilla PLT 175 103/ul Normal 150-450 [facility] Comment on above: Performed By: #### U RCX #### [facility] [address] [place] [address] Dr. Anthony Bonilla RBC 3.21 106/ul Critically low 4.20-5.40 [facility] Comment on above: Performed By: #### U RCX #### [facility] [address] [address] [address] Anthony Bonilla WBC 14.0 103/ul Critically high 4.0-11.0 [facility] Comment on above: Performed By: #### U RCX #### [facility] [address] [place] [address] HEAD WO CONon [...] HERNANDO HAMLIN Date: 2021-11-01 22:36 Normal [facility] PROF CHEM 8 (BAS METB)on Anion gap [Moles/Vol] 12.2 mmol/L Normal [facility] Comment on above: Performed By: #### C BC #### [facility] [address] [place] [address] Dr. Anthony Bonilla Calcium [Mass/Vol] 8.7 mg/dL Normal 8.5-10.1 [facility] Comment on above: Performed By: #### C BC #### [facility] [address] [address] [address] Anthony Bonilla Chloride [Moles/Vol] 103 mmol/L Normal 98-107 [facility] Comment on above: Performed By: #### C BC #### [facility] [address] [address] [address] Anthony Bonilla CO2 [Moles/Vol] 25.7 mmol/L Normal 21.0-32.0 [facility] Comment on above: Performed By: #### C BC #### [facility] [address] [address] [address] Anthony Bonilla Creatinine [Mass/Vol] 1.08 mg/dL Critically high 0.55-1.02 [facility] Comment on above: Performed By: #### C BC #### [facility] [address] [address] [address] Anthony Bonilla EGFR-AF AZERBAIJANI 58 mL/min/1.73m2 Critically low >=60 [facility] Comment on above: Performed By: #### C BC #### [facility] [address] [address] [address] Anthony Bonilla EGFR-NON AF AZERBAIJANI 48 mL/min/1.73m2 Critically low >=60 [facility] Comment on above: Performed By: #### C BC #### [facility] [address] [address] [address] Anthony Bonilla Glucose [Mass/Vol] 84 mg/dL Normal 74-106 [facility] Comment on above: Performed By: #### C BC #### [facility] [address] [address] [address] Anthony Bonilla Potassium [Moles/Vol] 4.9 mmol/L Normal 3.5-5.1 [facility] Comment on above: Performed By: #### C BC #### [facility] [address] [address] [address] Anthony Bonilla Sodium [Moles/Vol] 136 mmol/L Normal 136-145 [facility] Comment on above: Performed By: #### C BC #### [facility] [address] [address] [address] Anthony Bonilla Urea nitrogen [Mass/Vol] 33.0 mg/dL Critically high 7.0-18.0 [facility] Comment on above: Performed By: #### C BC #### [facility] [address] [address] [address] Anthony Bonilla Urea nitrogen/Creatinine [Mass ratio] 30.6 mg/mg Normal [facility] Comment on above: Performed By: #### C BC #### [facility] [address] [id number] Anthony Bonilla XR CHEST 1 Von [...] GIANA HOLLY Date: 2021-11-01 22:05 Normal [facility] CARDIAC DARWIN ADMITon 022 CK [Catalytic activity/Vol] 92 U/L Normal 26-192 [facility] Comment on above: Performed By: #### C BC #### [facility] [address] [address] [address] Anthony Bonilla CK.MB [Mass/Vol] 1.73 ng/mL Normal <=3.60 [facility] Comment on above: Performed By: #### C BC #### [facility] [address] [address] [address] Anthony Bonilla HSTROP 20.0 pg/mL Normal 4.0-51.3 [facility] Comment on above: Result Comment: CUT- OFF POINTS HAVE BEEN ESTABLISHED BASED ON THE FOURTH UNIVERSAL DEFINITIONS OF MYOCARDIAL INFARCTION. THE UPPER REFERENCE LIMIT (URL) OF TROPONIN, DEFINED THE 99TH PERCENTILE OF cTnI DISTRIBUTION IN A REFERENCE POPULATION, HAS BEEN CONFIRMED THE DECISION THRESHOLD FOR [place] DIAGNOSIS. Performed By: #### C BC #### [facility] [address] [place] [address] Dr. Anthony Bonilla CANDIDA 58 ng/mL Normal 9-82 [facility] Comment on above: Performed By: #### C BC #### [facility] [address] [place] [address] Dr. Anthony Bonilla CBC AUTO DIFFon 11-01-2021 BASO # 0.0 103/ul Normal 0.0-0.1 [facility] Comment on above: Performed By: #### U RCX #### [facility] [address] [place] [address] Dr. Anthony Bonilla Basophils/100 WBC (Bld) 0.2 % Normal 0.2-2.0 [facility] Comment on above: Performed By: #### U RCX #### [facility] [address] [place] [address] Dr. Anthony Bonilla EO # 0.0 103/ul Normal 0.0-0.7 [facility] Comment on above: Performed By: #### U RCX #### [facility] [address] [place] [address] Dr. Anthony Bonilla Eosinophils/100 WBC (Bld) 0.0 % Critically low 0.9-7.0 [facility] Comment on above: Performed By: #### U RCX #### [facility] [address] [place] [address] Dr. Anthony Bonilla Erythrocyte distribution width (RBC) [Ratio] 14.1 % Normal 11.0-15.0 [facility] Comment on above: Performed By: #### U RCX #### [facility] [address] [place] [address] Dr. Anthony Bonilla Hematocrit (Bld) [Volume fraction] 36.0 % Normal 36.0-48.0 [facility] Comment on above: Performed By: #### U RCX #### [facility] [address] [place] [address] Dr. Anthony Bonilla Hemoglobin (Bld) [Mass/Vol] 12.1 g/dL Normal 12.0-16.0 [facility] Comment on above: Performed By: #### U RCX #### [facility] [address] [address] [address] Anthony Bonilla IG # 0.11 10e3/ul Critically high 0.00-0.03 [facility] Comment on above: Performed By: #### U RCX #### [facility] [address] [address] [address] Anthony Bonilla IG % 0.5 % Normal 0.0-0.5 [facility] Comment on above: Performed By: #### U RCX #### [facility] [address] [address] [address] Anthony Bonilla LYMPH # 0.7 103/ul Critically low 1.2-3.8 [facility] Comment on above: Performed By: #### U RCX #### [facility] [address] [place] [address] Dr. Anthony Bonilla Lymphocytes/100 WBC (Bld) 3.2 % Critically low 20.5-60.0 [facility] Comment on above: Performed By: #### U RCX #### [facility] [address] [address] [address] Anthony Bonilla MANUAL DIFF REQ NO Normal [facility] Comment on above: Performed By: #### U RCX #### [facility] [address] [place] [address] Dr. Anthony Bonilla MCH (RBC) [Entitic mass] 33.0 pg Normal 26.7-34.0 [facility] Comment on above: Performed By: #### U RCX #### [facility] [address] [address] [address] Anthony Bonilla MCHC (RBC) [Mass/Vol] 33.6 g/dL Normal 29.9-35.2 [facility] Comment on above: Performed By: #### U RCX #### [facility] [address] [place] [address] Dr. Anthony Bonilla MCV (RBC) [Entitic vol] 98.1 fL Normal 81.0-99.0 [facility] Comment on above: Performed By: #### U RCX #### [facility] [address] [address] [address] Anthony Bonilla MONO # 1.1 103/ul Critically high 0.3-0.[address] [facility] Comment on above: Performed By: #### U RCX #### [facility] [address] [address] [address] Anthony Bonilla Monocytes/100 WBC (Bld) 4.8 % Normal 1.7-12.0 [facility] Comment on above: Performed By: #### U RCX #### [facility] [address] [address] [address] Anthony Bonilla NEUT # 20.3 103/ul Critically high 1.4-6.5 [facility] Comment on above: Performed By: #### U RCX #### [facility] [address] [place] [address] Dr. Anthony Bonilla Neutrophils/100 WBC (Bld) 91.3 % Critically high 43.0-75.0 [facility] Comment on above: Performed By: #### U RCX #### [facility] [address] [address] [address] Anthony Bonilla Platelet mean volume (Bld) [Entitic vol] 10.8 fL Normal 9.5-13.5 [facility] Comment on above: Performed By: #### U RCX #### [facility] [address] [place] [address] Dr. Anthony Bonilla PLT 179 103/ul Normal 150-450 [facility] Comment on above: Performed By: #### U RCX #### [facility] [address] [address] [address] Anthony Bonilla RBC 3.67 106/ul Critically low 4.20-5.[address] [facility] Comment on above: Performed By: #### U RCX #### [facility] [address] [address] [address] Anthony Bonilla WBC 22.2 103/ul Critically high 4.0-11.0 [facility] Comment on above: Performed By: #### U RCX #### [facility] [address] [place] [address] Dr. Anthony Bonilla CULTURE BLOODon 11-01-2021 Microscopic examination of blood, culture Culture Observations: NO GROWTH AT 5 DAYS. Normal [facility] Comment on above: Performed By: #### B [id number] #### [facility] [address] [place] [address] Dr. Anthony Bonilla Performed By: #### C BC #### [facility] [address] [place] [address] Dr. Anthony Bonilla Covid-19 PCR ([facility])on 10-10 SARS-CoV-2 (COVID-19) RNA OH+probe Ql (Unsp spec) Detected Critically abnormal NOT DETECTED [facility] Comment on above: Result Comment: This test is not yet approved or cleared by the [place] FDA. When there are no FDA-approved or cleared tests available, and other criteria are met, FDA can make tests available under an emergency access mechanism called an Emergency Use Authorization (EUA). The EUA for this test is supported by the [place] of Health and Human Service's declaration that [...] used). Performed By: #### C BC #### [facility] [address] [place] [address] Dr. Anthony Bonilla ER URINE PROFILEon 2 Bilirubin Ql (U) Negative Normal NEGATIVE [facility] Comment on above: Performed By: #### U RCX #### [facility] [address] [place] [address] Dr. Anthony Bonilla Clarity (U) CLEAR Normal CLEAR [facility] Comment on above: Performed By: #### U RCX #### [facility] [address] [place] [address] Dr. Anthony Bonilla Color (U) LT. YELLOW Normal YELLOW [facility] Comment on above: Performed By: #### U RCX #### [facility] [address] [address] [address] Anthony BANGURA A micrscopic examination will be performed if indicated. Normal [facility] Comment on above: Performed By: #### U RCX #### [facility] [address] [address] [address] Anthony Bonilla Glucose Ql (U) Negative Normal NEGATIVE [facility] Comment on above: Performed By: #### U RCX #### [facility] [address] [address] [address] Anthony Bonilla Hemoglobin Ql (U) TRACE-INTACT Abnormal NEGATIVE [facility] Comment on above: Performed By: #### U RCX #### [facility] [address] [address] [address] Anthony Bonilla Ketones Ql (U) Negative Normal NEGATIVE [facility] Comment on above: Performed By: #### U RCX #### [facility] [address] [address] [address] Anthony Bonilla LEUKOCYTES Negative Normal NEGATIVE [facility] Comment on above: Performed By: #### U RCX #### [facility] [address] [address] [address] Anthony Bonilla Nitrite Ql (U) Negative Normal NEGATIVE [facility] Comment on above: Performed By: #### U RCX #### [facility] [address] [address] [address] Anthony Bonilla pH (U) 6.0 [pH] Normal 5-9 [facility] Comment on above: Performed By: #### U RCX #### [facility] [address] [address] [address] Anthony Bonilla SPEC GRAVITY 1.020 Normal 1.005-<=1. 025 [facility] Comment on above: Performed By: #### U RCX #### [facility] [address] [address] [address] Anthony Bonilla UA PROTEIN Negative Normal NEGATIVE/ TRACE [facility] Comment on above: Performed By: #### U RCX #### [facility] [address] [place] [address] Dr. Anthony Bonilla UR MICRO IND INDICATED Normal [facility] Comment on above: Performed By: #### U RCX #### [facility] [address] [place] [address] Dr. Anthony Bonilla Urobilinogen Qn (U) 1.0 {Gen'U}/dL Normal 0.2 - 1. 0 [facility] Comment on above: Performed By: #### U RCX #### [facility] [address] [place] [address] Dr. Anthony Bonilla LACTATE/LACTIC ACIDon 2021 Lactate [Moles/Vol] 1.6 mmol/L Normal 0.4-1.9 [facility] Comment on above: Performed By: #### C BC #### [facility] [address] [place] [address] Dr. Anthony Bonilla PROF 14(COMP METB)on 022 Albumin [Mass/Vol] 3.2 g/dL Critically low 3.4-5.0 [facility] Comment on above: Performed By: #### C BC #### [facility] [address] [place] [address] Dr. Anthony Bonilla Albumin/Globulin [Mass ratio] 0.9 {ratio} Normal [facility] Comment on above: Performed By: #### C BC #### [facility] [address] [place] [address] Dr. Anthony Bonilla ALP [Catalytic activity/Vol] 26 U/L Critically low 46-116 [facility] Comment on above: Performed By: #### C BC #### [facility] [address] [place] [address] Dr. Anthony Bonilla ALT [Catalytic activity/Vol] 32 U/L Normal 14-59 [facility] Comment on above: Performed By: #### C BC #### [facility] [address] [place] [address] Dr. Anthony Bonilla Anion gap [Moles/Vol] 11.5 mmol/L Normal [facility] Comment on above: Performed By: #### C BC #### [facility] [address] [address] [address] Anthony Bonilla AST [Catalytic activity/Vol] 16 U/L Normal 15-37 [facility] Comment on above: Performed By: #### C BC #### [facility] [address] [address] [address] Anthony Bonilla Bilirubin [Mass/Vol] 1.2 mg/dL Critically high 0.2-1.0 [facility] Comment on above: Performed By: #### C BC #### [facility] [address] [address] [address] Anthony Bonilla Calcium [Mass/Vol] 9.0 mg/dL Normal 8.5-10.1 [facility] Comment on above: Performed By: #### C BC #### [facility] [address] [address] [address] Anthony Bonilla Chloride [Moles/Vol] 102 mmol/L Normal 98-107 [facility] Comment on above: Performed By: #### C BC #### [facility] [address] [address] [address] Anthony Bonilla CO2 [Moles/Vol] 25.2 mmol/L Normal 21.0-32.0 [facility] Comment on above: Performed By: #### C BC #### [facility] [address] [address] [address] Anthony Bonilla Creatinine [Mass/Vol] 1.25 mg/dL Critically high 0.55-1.02 [facility] Comment on above: Performed By: #### C BC #### [facility] [address] [address] [address] Anthony Bonilla EGFR-AF AZERBAIJANI 49 mL/min/1.73m2 Critically low >=60 [facility] Comment on above: Performed By: #### C BC #### [facility] [address] [address] [address] Anthony Bonilla EGFR-NON AF AZERBAIJANI 41 mL/min/1.73m2 Critically low >=60 [facility] Comment on above: Performed By: #### C BC #### [facility] [address] [address] [address] Anthony Bonilla Globulin (S) [Mass/Vol] 3.4 g/dL Normal [facility] Comment on above: Performed By: #### C BC #### [facility] [address] [place] [address] Dr. Anthony Bonilla Glucose [Mass/Vol] 102 mg/dL Normal 74-106 [facility] Comment on above: Performed By: #### C BC #### [facility] [address] [address] [address] Anthony Bonilla Potassium [Moles/Vol] 4.7 mmol/L Normal 3.5-5.1 [facility] Comment on above: Performed By: #### C BC #### [facility] [address] [place] [address] Dr. Anthony Bonilla Protein [Mass/Vol] 6.6 g/dL Normal 6.4-8.2 [facility] Comment on above: Performed By: #### C BC #### [facility] [address] [place] [address] Dr. Anthony Bonilla Sodium [Moles/Vol] 134 mmol/L Critically low 136-145 [facility] Comment on above: Performed By: #### C BC #### [facility] [address] [place] [address] Dr. Anthony Bonilla Urea nitrogen [Mass/Vol] 33.0 mg/dL Critically high 7.0-18.0 [facility] Comment on above: Performed By: #### C BC #### [facility] [address] [place] [address] Dr. Anthony Bonilla Urea nitrogen/Creatinine [Mass ratio] 26.4 mg/mg Normal [facility] Comment on above: Performed By: #### C BC #### [facility] [address] [place] [address] Dr. Anthony Bonilla PROTIMEon 11-01-2021 INR Coag (PPP) [Relative time] 0.97 {INR} Normal [facility] Comment on above: Performed By: #### U RCX #### [facility] [address] [place] [address] Dr. Anthony Bonilla INR GUIDELINES SEE BELOW Normal [facility] Comment on above: Result Comment: MEGAN RED INR: 2.0 - 3.0 CONDITIONS NOT LISTED BELOW 2.5 - 3.5 FOR PROSTHETIC HEART VALVE REPLACEMENT 2.5 - 3.5 RECURRENT THROMBOSIS Performed By: #### U RCX #### [facility] [address] [place] [address] Dr. Anthony Bonilla PT Coag (PPP) [Time] 10.5 s Normal 9.0-11.6 [facility] Comment on above: Performed By: #### U RCX #### [facility] [address] [place] [address] Dr. Anthony Bonilla PTTon 11-01-2021 aPTT Coag (Bld) [Time] 27.8 s Normal 22.3-36.2 [facility] Comment on above: Performed By: #### U RCX #### [facility] [address] [place] [address] Dr. Anthony Bonilla TSHon 11-01-2021 TSH 1.011 uIU/mL Normal 0.358-3.74 0 [facility] Comment on above: Performed By: #### C BC #### [facility] [address] [place] [address] Dr. Anthony Bonilla URINE MICROSCOPIC ONLYon BACTERIA LARGE Abnormal NONE SEEN [facility] Comment on above: Performed By: #### U RCX #### [facility] [address] [place] [address] Dr. Anthony Bonilla Bacteria identified Cx Nom (U) INDICATED Normal [facility] Comment on above: Performed By: #### U RCX #### [facility] [address] [place] [address] Dr. Anthony Bonilla CAST NONE SEEN Normal NONE SEEN [facility] Comment on above: Performed By: #### U RCX #### [facility] [address] [place] [address] Dr. Anthony Bonilla Crystals LM Nom (Urine sed) NONE SEEN Normal NONE SEEN [facility] Comment on above: Performed By: #### U RCX #### [facility] [address] [place] [address] Dr. Anthony Bonilla Epithelial cells LM Ql (Urine sed) FEW Abnormal NONE SEEN /RARE [facility] Comment on above: Performed By: #### U RCX #### [facility] [address] [place] [address] Dr. Anthony Bonilla MUCOUS NONE SEEN Normal NONE SEEN [facility] Comment on above: Performed By: #### U RCX #### [facility] [address] [place] [address] Dr. Anthony Boinlla RBC 2-5 Abnormal 0-2 [facility] Comment on above: Performed By: #### U RCX #### [facility] [address] [place] [address] Dr. Anthony Bonilla WBC 0-2 Abnormal NONE SEEN [facility] Comment on above: Performed By: #### U RCX #### [facility] [address] [place] [address] Dr. Anthony Bonilla Covid-19 PCR (CVDTB)on SARS-CoV-2 (COVID-19) RNA [place]+probe Ql (Unsp spec) Detected Critically abnormal NOT DETECTED [facility] Comment on above: Result Comment: This test is not yet approved or cleared by the [place] FDA. When there are no FDA-approved or cleared tests available, and other criteria are met, FDA can make tests available under an emergency access mechanism called an Emergency Use Authorization (EUA). The EUA for this test is supported by the [place] of Health and Human Service's declaration that [...] used). Performed By: #### C BC #### [facility] [address] [place] [address] Dr. Anthony Bonilla Covid-19 PCR (CVDTBH)on SARS-CoV-2 (COVID-19) RNA [place]+probe Ql (Unsp spec) Not detected Normal NOT DETECTED [facility] Comment on above: Result Comment: This test is not yet approved or cleared by the [place] FDA. When there are no FDA-approved or cleared tests available, and other criteria are met, FDA can make tests available under an emergency access mechanism called an Emergency Use Authorization (EUA). The EUA for this test is supported by the [place] of Health and Human Service's (HHS's) declaration [...] SARS-CoV-2. Performed By: #### U RCX #### [facility] [address] [address] [address] 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 Any time this information is not complete, it is the mail censor?s responsibility to query the physician. Based on [...] timely attention to this matter. Ambar Manley Title I Coordinator Ext [phone] [Electronically Signed on: 10/18/2019 21:40 EDT] Mi Licea DO [Verified on: 10/18/2019 21:40 EDT] Mi Licea DO [Transcribed on: 10/02/2019 11:06 EDT] [facility] Consent Formson 09-29-2019 Consent Forms [id number]#1.00O [facility] Medication Managementon 09-09 Medication Management [id number]#1.00O [facility] Outside Recordson 09-29-2019 Outside Records [id number]#1.00O [facility] Outside Records [id number]#1.00O [facility] Provider Orderson 09-29-2019 Provider Orders [id number]#1.00O [facility] Telemetry Stripson 0 Telemetry Strips [id number]#1.00O [facility] .Auto Diff 1on 2019 Auto [place] % 11 % Normal -12 [facility] Comment on above: Performed By: #### 1 [id number], [id number], [id number] #### [facility] (DEFAULT) [address] [place] [address] Baso Abs# 0.0 x10 Normal 0.0-0.2 [facility] Comment on above: Performed By: #### 1 [id number], [id number], [id number] #### [facility] (DEFAULT) [address] [place] [address] Basophils/100 WBC (Bld) 0.1 % Low 0.2-2.0 [facility] Comment on above: Performed By: #### 1 [id number], [id number], [id number] #### [facility] (DEFAULT) [address] [place] [address] Eos Abs# 0.2 x10 Normal 0.0-0.4 [facility] Comment on above: Performed By: #### 1 [id number], [id number], [id number] #### [facility] (DEFAULT) [address] [place] [address] Eosinophils/100 WBC (Bld) 2.2 % Normal 0.9-4.0 [facility] Comment on above: Performed By: #### 1 [id number], [id number], [id number] #### [facility] (DEFAULT) [address] [place] [address] Lymphocytes (Bld) [#/Vol] 0.6 x10 Low 1.3-2.9 [facility] Comment on above: Performed By: #### 1 [id number], [id number], [id number] #### [facility] (DEFAULT) [address] [place] [address] Lymphocytes/100 WBC (Bld) 6 % Low 14-48 [facility] Comment on above: Performed By: #### 1 [id number], [id number], [id number] #### [facility] (DEFAULT) [address] [place] [address] [place] Abs# 1.0 x10 High 0.0-0.8 [facility] Comment on above: Performed By: #### 1 [id number], [id number], [id number] #### [facility] (DEFAULT) [address] [place] [address] Neut Abs# 7.2 x10 Normal 1.5-9.2 [facility] Comment on above: Performed By: #### 1 [id number], [id number], [id number] #### [facility] (DEFAULT) [address] [place] [address] Neutrophils/100 WBC (Bld) 80 % Normal 44-88 [facility] Comment on above: Performed By: #### 1 [id number], [id number], [id number] #### [facility] (DEFAULT) [address] [place] [address] CBC w/ Auto Diffon 0 Erythrocyte distribution width (RBC) [Ratio] 14.4 % Normal 11.5-15.0 [facility] Comment on above: Performed By: #### 1 [id number], [id number], [id number] #### [facility] (DEFAULT) [address] [place] [address] Hematocrit (Bld) [Volume fraction] 36.2 % Normal 33.7-40.4 [facility] Comment on above: Performed By: #### 1 [id number], [id number], [id number] #### [facility] (DEFAULT) [address] [place] [address] Hemoglobin (Bld) [Mass/Vol] 11.9 g/dL Normal 11.3-15.9 [facility] Comment on above: Performed By: #### 1 [id number], [id number], [id number] #### [facility] (DEFAULT) [address] [place] [address] Man Diff? Auto Normal [facility] Comment on above: Performed By: #### 1 [id number], [id number], [id number] #### [facility] (DEFAULT) [address] [place] [address] 42869 MCH (RBC) [Entitic mass] 33 pg Normal 24-34 [facility] Comment on above: Performed By: #### 1 [id number], [id number], [id number] #### [facility] (DEFAULT) [address] [place] [address] 05144 MCHC (RBC) [Mass/Vol] 33 g/dL Normal 26-37 [facility] Comment on above: Performed By: #### 1 [id number], [id number], [id number] #### [facility] (DEFAULT) [address] [place] [address] 30657 MCV (RBC) [Entitic vol] 100 fL Normal 81-100 [facility] Comment on above: Performed By: #### 1 [id number], [id number], [id number] #### [facility] (DEFAULT) [address] [place] [address] 41151 Platelet mean volume (Bld) [Entitic vol] 9.6 fL Normal 6.3-10.2 [facility] Comment on above: Performed By: #### 1 [id number], [id number], [id number] #### [facility] (DEFAULT) [address] [place] [address] Platelets (Bld) [#/Vol] 286 x10 Normal 138-427 [facility] Comment on above: Performed By: #### 1 [id number], [id number], [id number] #### [facility] (DEFAULT) [address] [place] [address]803 RBC (Bld) [#/Vol] 3.61 x10 Low 3.70-5.30 [facility] Comment on above: Performed By: #### 1 [id number], [id number], [id number] #### [facility] (DEFAULT) [address] [place] [address]6592 WBC (Bld) [#/Vol] 9.0 x10 [facility] Comment on above: Performed By: #### 1 [id number], [id number], [id number] #### [facility] (DEFAULT) [address] [place] [address] Education Noteon 2019 Education Note Education Materials POST OPERATIVE TOTAL KNEE/HIP DISCHARGE INTRUCTIONS SURGEONS WRITTEN INSTRUCTIONS: Walk with walker; bear weight to tolerance on operative extremity Elevate extremity 1 hour 3 times/day to control pain and swelling Range of motion to ankle 10 times/hour Range of motion to knee hourly Change dressing daily. Kitty hose (compression stockings) for 6 weeks Physical [...] rule of a DVT. Normal [facility] Extra [facility] 2019 Tube Collected Yes [facility] Comment on above: Performed By: #### 1 [id number], [id number], [id number] #### [facility] (DEFAULT) [address] [place] [address] Inpatient Patient Summaryon 2019 Inpatient Patient Summary [address] [address] Patient Discharge Instructions Name: SAGE HSU : 1935 Patient Address: [address] [place] [address] Primary Care Provider: Name: Gypsy Mcmahon MD After you are discharged if you find you have any questions, please, call [phone] ext [phone] to speak to a nurse. Discharge Diagnosis: Primary localized osteoarthritis of left hip Prescription Information: If you have been given a prescription for narcotics, seek immediate medical attention if you have any difficulty breathing or any sudden status changes such as confusion and sleepiness. If you or anyone you know is experiencing suicidal thoughts, mental health, alcohol and/or drug addiction problems; contact the [facility] 31/08 Crisis Hotline -Text 2TFRE to 794557. If you received any narcotics, sedation, or [...] or sign any legal documents [facility] would like to thank you for allowing us to assist you with your healthcare needs. The following includes patient education materials and information regarding your injury/illness. SAGE HSU has been given the following list of follow-up instructions, prescriptions, and patient education materials: Follow-up Instructions With: Address: When: Mi Licea [address] [place] [address] [address] [place] [address] Business (2) 10/03/2019 8:30 AM With: Address: When: Gypsy Mcmahon [address] [place] [address] [place] [address] Business (1) Medications During the course of your visit, your medication list was updated with the most current information. The details of those changes are reflected below: New Medications Other Medications cefuroxime (cefuroxime 250 mg oral tablet) 1 tab(s) Oral 2 times a day for 7 Days. [facility] Medications That Were Updated - Follow Below [...] motion to knee hourly Change dressing daily. Kitty hose (compression stockings) for 6 weeks Physical [...] for Disease Control and Prevention October 2013 [facility] Progress Note - Nurseon 09-09 [facility] Pt[facility] to bed times [...] on: 2019 11:52 EDT] Pan Regalado RN [facility] Progress Note - Nurse Pt. reports intermittent left upper inner thigh grabbing pain. Pt. moans during these episodes. Tramadol given. Pt. repostioned for comfort. No change in the muscle spasms. Dr. Chacko informed in person. No orders received. [Electronically Signed on: 2019 09:32 EDT] Pan Regalado RN [Verified on: 2019 09:32 EDT] Pan Regalado RN [facility] Progress Note-Physicianon Progress Note-Physician DATE [...] follow up with Dr. Licea. PROGNOSIS: Good. Ten Redd DO JOB #: [id number] [Electronically Signed on: 2019 13:04 EDT] TEN REDD DO [Verified on: 2019 13:04 EDT] TEN REDD DO [Transcribed on: 2019 11:05 EDT] [facility] .Auto Diff 1on 09-27-2019 Auto [place] % 9 % Normal -12 [facility] Comment on above: Performed By: #### 1 [id number], [id number], [id number] #### [facility] (DEFAULT) [address] [place] [address]11 Baso Abs# 0.0 x10 Normal 0.0-0.2 [facility] Comment on above: Performed By: #### 1 [id number], [id number], [id number] #### [facility] (DEFAULT) [address] [place] [address]404 Basophils/100 WBC (Bld) 0.1 % Low 0.2-2.0 [facility] Comment on above: Performed By: #### 1 [id number], [id number], [id number] #### [facility] (DEFAULT) [address] [place] [address]19 Eos Abs# 0.2 x10 Normal 0.0-0.4 [facility] Comment on above: Performed By: #### 1 [id number], [id number], [id number] #### [facility] (DEFAULT) [address] [place] [address] 25873 Eosinophils/100 WBC (Bld) 1.6 % Normal 0.9-4.0 [facility] Comment on above: Performed By: #### 1 [id number], [id number], [id number] #### [facility] (DEFAULT) [address] [place] [address]28 Lymphocytes (Bld) [#/Vol] 0.5 x10 Low 1.3-2.9 [facility] Comment on above: Performed By: #### 1 [id number], [id number], [id number] #### [facility] (DEFAULT) [address] [place] [address] 93790 Lymphocytes/100 WBC (Bld) 4 % Low 14-48 [facility] Comment on above: Performed By: #### 1 [id number], [id number], [id number] #### [facility] (DEFAULT) [address] [place] [address] [place] Abs# 1.2 x10 High 0.0-0.8 [facility] Comment on above: Performed By: #### 1 [id number], [id number], [id number] #### [facility] (DEFAULT) [address] [place] [address] 12728 Neut Abs# 11.5 x10 High 1.5-9.2 [facility] Comment on above: Performed By: #### 1 [id number], [id number], [id number] #### [facility] (DEFAULT) [address] [place] [address] 15049 Neutrophils/100 WBC (Bld) 86 % Normal 44-88 [facility] Comment on above: Performed By: #### 1 [id number], [id number], [id number] #### [facility] (DEFAULT) [address] [place] [address] C Urineon 09-27-2019 C Urine Urine Culture [...] Tri/Sulf S <=2/38 Verified Normal [facility] Comment on above: Performed By: #### 7 [id number], [id number], [id number] #### [facility] (DEFAULT) [address] [place] [address] CBC w/ Auto Diffon 0 Erythrocyte distribution width (RBC) [Ratio] 14.5 % Normal 11.5-15.0 [facility] Comment on above: Performed By: #### 1 [id number], 81719813, 9474041 #### [facility] (DEFAULT) [address] [place] [address] Hematocrit (Bld) [Volume fraction] 39.2 % Normal 33.7-40.4 [facility] Comment on above: Performed By: #### 1 [id number], 99805851, 0062089 #### [facility] (DEFAULT) [address] [place] [address] Hemoglobin (Bld) [Mass/Vol] 12.8 g/dL Normal 11.3-15.9 [facility] Comment on above: Performed By: #### 1 [id number], 36034891, 7398386 #### [facility] (DEFAULT) [address] [place] [address] 13069 Man Diff? Auto Normal [facility] Comment on above: Performed By: #### 1 [id number], 32930971, 4721294 #### [facility] (DEFAULT) [address] [place] [address] 48614 MCH (RBC) [Entitic mass] 33 pg Normal 24-34 [facility] Comment on above: Performed By: #### 1 [id number], 64515069, 1620360 #### [facility] (DEFAULT) [address] [place] [address] 96315 MCHC (RBC) [Mass/Vol] 33 g/dL Normal 26-37 [facility] Comment on above: Performed By: #### 1 [id number], 99753434, 5357948 #### [facility] (DEFAULT) [address] [place] [address] 97196 MCV (RBC) [Entitic vol] 101 fL High 81-100 [facility] Comment on above: Performed By: #### 1 [id number], 30712558, 4713034 #### [facility] (DEFAULT) [address] [place] [address] 25552 Platelet mean volume (Bld) [Entitic vol] 9.8 fL Normal 6.3-10.2 [facility] Comment on above: Performed By: #### 1 [id number], 07336467, 2964942 #### [facility] (DEFAULT) [address] [place] [address] 04909 Platelets (Bld) [#/Vol] 266 x10 Normal 138-427 [facility] Comment on above: Performed By: #### 1 [id number], 09276347, 6375733 #### [facility] (DEFAULT) [address] [place] [address] RBC (Bld) [#/Vol] 3.89 x10 Normal 3.70-5.30 [facility] Comment on above: Performed By: #### 1 [id number], 30658683, 8429346 #### [facility] (DEFAULT) [address] [place] [address] 64111 WBC (Bld) [#/Vol] 13.4 x10 [facility] Comment on above: Result Comment: Slid e Reviewed Performed By: #### 1 [id number], 69935681, [id number] #### [facility] (DEFAULT) [address] [place] [address] Coding Summaryon 09-27-2019 Coding Summary CODING DATE: 020 FINAL [facility] STATUS: Home PAYOR: Medicare ADMIT DX: REASON [...] Marisela Lawrence Date Saved: 09/27/2019 11:11 am [facility] Extra Greenon 09-27-2019 Tube Collected Yes [facility] Comment on above: Performed By: #### 1 [id number], [id number], 8090052 #### [facility] (DEFAULT) [address] [place] [address] Nutrition Noteon 09-27-2019 Nutrition Note Pt eating poorly, av g less than 30% of meals per intake records. Supplements also taken sporadically. Suspect pain and constipation may be playing a role. No new wts. Last BM 09/23. Possible discharge later today. Will continue to follow and monitor need to adjust supplements ie. offer to make into a milkshake, [facility] Pharmacy Noteon 09-27-2019 Pharmacy Note [...] [Verified on: 09/27/2019 14:01 EDT] Virgie Santos [facility] Progress Note - Nurseon 08 Progress Note - Nurse 1800 one dulcolax suppository administered, will continue to monitor. [Electronically Signed on: 09/27/2019 18:03 EDT] Luli Mclain RN [Verified on: 09/27/2019 18:03 EDT] Luli Mclain RN [facility] Progress Note - Nurse 1710 tramadol 50mg po administered for #10 left upper thigh pain , will continue to monitor. [Electronically Signed on: 09/27/2019 17:09 EDT] Luli Mclain RN [Verified on: 09/27/2019 17:09 EDT] Luli Mclain RN [facility] Progress Note-Physicianon Progress Note-Physician DATE [...] an extended care facility tomorrow. PROGNOSIS: Good. Ten Redd DO JOB #: [id number] [id number] [Electronically Signed on: 2019 10:28 EDT] TEN REDD DO [Verified on: 2019 10:28 EDT] TEN REDD DO [Transcribed on: 09/27/2019 13:52 EDT] GDU Normal [facility] .Auto Diff 1on 09-26-2019 Auto [place] % 9 % Normal 1-12 [facility] Comment on above: Performed By: #### 1 [id number], [id number], 6097927 #### [facility] (DEFAULT) [address] [place] [address] Baso Abs# 0.0 x10 Normal 0.0-0.2 [facility] Comment on above: Performed By: #### 1 [id number], 46981510, 4004530 #### [facility] (DEFAULT) [address] [place] [address] 56674 Basophils/100 WBC (Bld) 0.1 % Low 0.2-2.0 [facility] Comment on above: Performed By: #### 1 [id number], 03072202, 3101384 #### [facility] (DEFAULT) [address] [place] [address] 53341 Eos Abs# 0.2 x10 Normal 0.0-0.4 [facility] Comment on above: Performed By: #### 1 [id number], 64437528, 7546622 #### [facility] (DEFAULT) [address] [place] [address] 28835 Eosinophils/100 WBC (Bld) 2.0 % Normal 0.9-4.0 [facility] Comment on above: Performed By: #### 1 [id number], 51932306, 9758706 #### [facility] (DEFAULT) [address] [place] [address] 44756 Lymphocytes (Bld) [#/Vol] 0.6 x10 Low 1.3-2.9 [facility] Comment on above: Performed By: #### 1 [id number], 39664292, 3679352 #### [facility] (DEFAULT) [address] [place] [address] 83959 Lymphocytes/100 WBC (Bld) 6 % Low 14-48 [facility] Comment on above: Performed By: #### 1 [id number], 16934585, 9996800 #### [facility] (DEFAULT) [address] [place] [address] [place] Abs# 0.9 x10 High 0.0-0.8 [facility] Comment on above: Performed By: #### 1 [id number], 91088861, 9388002 #### [facility] (DEFAULT) [address] [place] [address] Neut Abs# 8.3 x10 Normal 1.5-9.2 [facility] Comment on above: Performed By: #### 1 [id number], 74899804, 7885692 #### [facility] (DEFAULT) [address] [place] [address] Neutrophils/100 WBC (Bld) 83 % Normal 44-88 [facility] Comment on above: Performed By: #### 1 [id number], 08744404, 6692114 #### [facility] (DEFAULT) [address] [place] [address] Standardon 09-26-2019 eGFR Non AA 48 mL/min/1.73m2 [facility] Comment on above: Performed By: #### 1 [id number], 69023033, 6310434 #### [facility] (DEFAULT) [address] [place] [address] eGFR AA 58 mL/min/1.73m2 [facility] Comment on above: Result Comment: Locker Room Attendant kody Kidney disease could be indicated at eGFRs of less than 60 ml/min/1.73m2. Kidney Failure is indicated at less than 15 ml/min/1.73m2 Performed By: #### 1 [id number], 85381447, 1336637 #### [facility] (DEFAULT) [address] [place] [address] Anion gap [Moles/Vol] 10.0 mmol/L Normal 5.0-19.0 [facility] Comment on above: Performed By: #### 1 [id number], 70075092, 5780564 #### [facility] (DEFAULT) [address] [place] [address] Calcium [Mass/Vol] 8.8 mg/dL Low 8.9-10.3 [facility] Comment on above: Performed By: #### 1 [id number], 18290184, 1753228 #### [facility] (DEFAULT) [address] [place] [address] 93122 Chloride [Moles/Vol] 103 mmol/L Normal 101-111 [facility] Comment on above: Performed By: #### 1 [id number], 25303843, 2383406 #### [facility] (DEFAULT) [address] [place] [address] 11021 CO2 [Moles/Vol] 28 mmol/L Normal 21-32 [facility] Comment on above: Performed By: #### 1 [id number], 72795473, 7255706 #### [facility] (DEFAULT) [address] [place] [address] 54685 Creatinine [Mass/Vol] 1.09 mg/dL Normal 0.60-1.30 [facility] Comment on above: Performed By: #### 1 [id number], 76714677, 5768247 #### [facility] (DEFAULT) [address] [place] [address] 74391 Glucose [Mass/Vol] 94.0 mg/dL Normal 74.0-118.0 [facility] Comment on above: Performed By: #### 1 [id number], 16283348, 5803230 #### [facility] (DEFAULT) [address] [place] [address] 19344 Osmolality [Osmolality] 276 mOsm/L [facility] Comment on above: Performed By: #### 1 [id number], 56555873, 4577222 #### [facility] (DEFAULT) [address] [place] [address] 70547 Potassium [Moles/Vol] 4.4 mmol/L Normal 3.6-5.1 [facility] Comment on above: Performed By: #### 1 [id number], 99135481, 7725138 #### [facility] (DEFAULT) [address] [place] [address] 06807 Sodium [Moles/Vol] 137.0 mmol/L Normal 136.0-144 . 0 [facility] Comment on above: Performed By: #### 1 [id number], 86760630, 8310539 #### [facility] (DEFAULT) [address] [place] [address] Urea nitrogen [Mass/Vol] 19 mg/dL Normal 8-26 [facility] Comment on above: Performed By: #### 1 [id number], 82355353, 5162943 #### [facility] (DEFAULT) [address] [place] [address] Urea nitrogen/Creatinine [Mass ratio] 17.0 mg/mg High 4.6-16.2 [facility] Comment on above: Performed By: #### 1 [id number], 31730811, 1526221 #### [facility] (DEFAULT) [address] [place] [address] CBC w/ Auto Diffon 0 Erythrocyte distribution width (RBC) [Ratio] 14.4 % Normal 11.5-15.0 [facility] Comment on above: Performed By: #### 1 [id number], 69113598, 8671041 #### [facility] (DEFAULT) [address] [place] [address] Hematocrit (Bld) [Volume fraction] 35.5 % Normal 33.7-40.4 [facility] Comment on above: Performed By: #### 1 [id number], 88667499, 2798167 #### [facility] (DEFAULT) [address] [place] [address] Hemoglobin (Bld) [Mass/Vol] 11.6 g/dL Normal 11.3-15.9 [facility] Comment on above: Performed By: #### 1 [id number], 07200132, 4164788 #### [facility] (DEFAULT) [address] [place] [address] Man Diff? Auto Normal [facility] Comment on above: Performed By: #### 1 [id number], 66852553, 7180285 #### [facility] (DEFAULT) [address] [place] [address] MCH (RBC) [Entitic mass] 33 pg Normal 24-34 [facility] Comment on above: Performed By: #### 1 [id number], 26585658, 2382835 #### [facility] (DEFAULT) [address] [place] [address] 70428 MCHC (RBC) [Mass/Vol] 33 g/dL Normal 26-37 [facility] Comment on above: Performed By: #### 1 [id number], 23977056, 1027923 #### [facility] (DEFAULT) [address] [place] [address] MCV (RBC) [Entitic vol] 102 fL High 81-100 [facility] Comment on above: Performed By: #### 1 [id number], 63348693, 3617263 #### [facility] (DEFAULT) [address] [place] [address] Platelet mean volume (Bld) [Entitic vol] 9.8 fL Normal 6.3-10.2 [facility] Comment on above: Performed By: #### 1 [id number], 70245351, 1150935 #### [facility] (DEFAULT) [address] [place] [address] Platelets (Bld) [#/Vol] 236 x10 Normal 138-427 [facility] Comment on above: Performed By: #### 1 [id number], 91961396, 6442762 #### [facility] (DEFAULT) [address] [place] [address] 60320 RBC (Bld) [#/Vol] 3.49 x10 Low 3.70-5.30 [facility] Comment on above: Performed By: #### 1 [id number], 63509105, 8949362 #### [facility] (DEFAULT) [address] [place] [address] 31798 WBC (Bld) [#/Vol] 10.0 x10 [facility] Comment on above: Performed By: #### 1 [id number], 30141751, 9733588 #### [facility] (DEFAULT) [address] [place] [address] Consent Formson 09-26-2019 Consent Forms [id number]#1.00O TGTIFF [facility] Consultation/Specialist Note on 09-26-2019 Consultation/Specialis t Note Patient: SAGE HSU Age: 83 years Sex: FEMALE : [...] little and drinking fluids. EPC cuffs on, KITTY hose on. Denies any acute distress. Subjective [...] [Verified on: 09/26/2019 07:35 EDT] SUDHEER PIKE [facility] Progress Note - Nurseon 09-08 [...] on: 09/26/2019 07:45 EDT] Twila Cruz RN [facility] .Auto Diff 1on 09-25-2019 Auto [place] % 8 % Normal 02-19 [facility] Comment on above: Performed By: #### 1 [id number], 15471657, 1738678 #### [facility] (DEFAULT) [address] [place] [address] 00575 Baso Abs# 0.0 x10 Normal 0.0-0.2 [facility] Comment on above: Performed By: #### 1 [id number], 48249958, 7443553 #### [facility] (DEFAULT) [address] [place] [address] 77853 Basophils/100 WBC (Bld) 0.2 % Normal 0.2-2.0 [facility] Comment on above: Performed By: #### 1 [id number], 21112854, 8400988 #### [facility] (DEFAULT) [address] [place] [address] 86778 Eos Abs# 0.1 x10 Normal 0.0-0.4 [facility] Comment on above: Performed By: #### 1 [id number], 71656251, 8454352 #### [facility] (DEFAULT) [address] [place] [address] 24443 Eosinophils/100 WBC (Bld) 0.5 % Low 0.9-4.0 [facility] Comment on above: Performed By: #### 1 [id number], 87543210, 9959661 #### [facility] (DEFAULT) [address] [place] [address] 46989 Lymphocytes (Bld) [#/Vol] 1.1 x10 Low 1.3-2.9 [facility] Comment on above: Performed By: #### 1 [id number], 79807311, 2486726 #### [facility] (DEFAULT) [address] [place] [address] 85030 Lymphocytes/100 WBC (Bld) 9 % Low 14-48 [facility] Comment on above: Performed By: #### 1 [id number], 97491283, 0013449 #### [facility] (DEFAULT) [address] [place] [address] 28078 [place] Abs# 1.0 x10 High 0.0-0.8 [facility] Comment on above: Performed By: #### 1 [id number], 32544388, 7387005 #### [facility] (DEFAULT) [address] [place] [address] 89913 Neut Abs# 9.6 x10 High 1.5-9.2 [facility] Comment on above: Performed By: #### 1 [id number], 50099335, 5099365 #### [facility] (DEFAULT) [address] [place] [address] 26024 Neutrophils/100 WBC (Bld) 82 % Normal 44-88 [facility] Comment on above: Performed By: #### 1 [id number], 61999292, 8834540 #### [facility] (DEFAULT) [address] [place] [address] 64201 ABORhon 09-25-2019 ABO and Rh group Nom (d) Hx Check: Not Found Anti-A: 4+ Anti-B: 0 Anti-D: 4+ DCon: NT A1: 0 B: 4+ ABORh Interp: A POS [facility] Comment on above: Performed By: #### 7 [id number], 48932644, [id number] #### [facility] (DEFAULT) [address] [place] [address] 30722 ABORh Retypeon 09-25-2019 ABO and Rh group Nom (d) Ordered by Discern. Anti-A: 4+ Anti-B: 0 Anti-D: 4+ DCon: NT A1: 0 B: 4+ ABORh Retype: A POS [facility] Comment on above: Performed By: #### 7 [id number], 61627493, [id number] #### [facility] (DEFAULT) [address] [place] [address] 76923 ABSC Gelon 09-25-2019 ABSC Gel Negative Normal [facility] Comment on above: Performed By: #### 7 [id number], 37795876, [id number] #### [facility] (DEFAULT) [address] [place] [address] 58053 Anesthesia Noteon 09-25-2019 Anesthesia Note Patient: DONTAE [...] risk of pressure sore / SNOMED CT 026689506 / Confirmed CAD (coronary artery disease) / SNOMED CT 33974727 / Confirmed Hyperlipidemia / SNOMED CT 28366437 / Confirmed Hypertension / SNOMED CT 3858190465 / Confirmed Skin cancer / SNOMED CT 4596541171 / Confirmed Osteoporosis / SNOMED CT 988972303 / Confirmed Restless leg syndrome / SNOMED CT 86286369 / Confirmed Resolved: GERD (gastroesophageal reflux disease) / SNOMED CT 474173393 Histories Family History: Cancer Sister Brother Aneurysm Mother CHF - Congestive heart failure Father [place] (myocardial infarction) Sister Procedure history: Umbilical hernia (3128781750). Arthroscopy (90128977). Comments: 08/29/2019 12:57 Dionne Mccarty RN arthroscopy of knee Cholecystectomy (56422932). Hysterectomy (060126597). Cataract (318703342). Shoulder (88009041). Comments: 08/29/2019 12:58 EDT - Dionne Yun RN arthroscopy CABG (Coronary artery bypass grafting) planned (903020457). Colonoscopy (725981094). EGD - Esophagogastroduodenosc opy (2319904655). Meniscectomy (300826390). Hip arthroplasty (535776540). Social History Electronic Cigarette/Vaping Assessment Electronic Cigarette [...] axis dev, LAFB, RV conduction delay. Plan [place] [employer] Anesthesiologists#(ASA) physical status classification: Class III. Anesthetic Preoperative Plan Anesthesia: Regional Spinal. Anesthetic plan, risks, benefits, and alternatives discussed with the patient and/or family. Patient verbalized understanding. Informed consent was given. Consent was signed by the patient. [Electronically Signed on: 09/25/2019 10:10 EDT] Enrike Mora MD [Verified on: 09/25/2019 10:10 EDT] Enrike Mora MD Normal [facility] Blood Bank IDon 09-25-2019 Blood Bank ID BBID: [id number] [facility] Comment on above: Performed By: #### 7 [id number], 89817597, [id number] #### [facility] (DEFAULT) [address] [place] [address] CBC w/ Auto Diffon 0 Erythrocyte distribution width (RBC) [Ratio] 14.4 % Normal 11.5-15.0 [facility] Comment on above: Performed By: #### 1 [id number], 24641734, 6079331 #### [facility] (DEFAULT) [address] [place] [address] Hematocrit (Bld) [Volume fraction] 39.2 % Normal 33.7-40.4 [facility] Comment on above: Performed By: #### 1 [id number], 48360831, 0445232 #### [facility] (DEFAULT) [address] [place] [address] Hemoglobin (Bld) [Mass/Vol] 12.8 g/dL Normal 11.3-15.9 [facility] Comment on above: Performed By: #### 1 [id number], 01348344, 9702385 #### [facility] (DEFAULT) [address] [place] [address] Man Diff? Auto Normal [facility] Comment on above: Performed By: #### 1 [id number], 15094076, 8170411 #### [facility] (DEFAULT) [address] [place] [address] 54563 MCH (RBC) [Entitic mass] 33 pg Normal 24-34 [facility] Comment on above: Performed By: #### 1 [id number], 46225340, 1265758 #### [facility] (DEFAULT) [address] [place] [address] MCHC (RBC) [Mass/Vol] 33 g/dL Normal 26-37 [facility] Comment on above: Performed By: #### 1 [id number], 58111678, 5909089 #### [facility] (DEFAULT) [address] [place] [address] 10508 MCV (RBC) [Entitic vol] 102 fL High 81-100 [facility] Comment on above: Performed By: #### 1 [id number], 36720491, 8827506 #### [facility] (DEFAULT) [address] [place] [address] 39121 Platelet mean volume (Bld) [Entitic vol] 9.4 fL Normal 6.3-10.2 [facility] Comment on above: Performed By: #### 1 [id number], 21746388, 9056869 #### [facility] (DEFAULT) [address] [place] [address] Platelets (Bld) [#/Vol] 272 x10 Normal 138-427 [facility] Comment on above: Performed By: #### 1 [id number], 20858533, 3742266 #### [facility] (DEFAULT) [address] [place] [address] 04097 RBC (Bld) [#/Vol] 3.85 x10 Normal 3.70-5.30 [facility] Comment on above: Performed By: #### 1 [id number], 76096564, 4538789 #### [facility] (DEFAULT) [address] [place] [address] 68652 WBC (Bld) [#/Vol] 11.7 x10 High 3.5-10.5 [facility] Comment on above: Performed By: #### 1 [id number], 64349371, 1362062 #### [facility] (DEFAULT) [address] [place] [address] 31948 Extra [place] 09-25-2019 Tube Collected Yes [facility] Comment on above: Performed By: #### 7 [id number], 34187873, [id number] #### [facility] (DEFAULT) [address] [place] [address] H&Hon 09-25-2019 Hematocrit (Bld) [Volume fraction] 39.9 % Normal 33.7-40.4 [facility] Comment on above: Performed By: #### 7 809219, 59938949, [id number] #### [facility] (DEFAULT) [address] [place] [address] Hemoglobin (Bld) [Mass/Vol] 12.7 g/dL Normal 11.3-15.9 [facility] Comment on above: Performed By: #### 7 [id number], 25344045, [id number] #### [facility] (DEFAULT) [address] [place] [address] 20831 History and Physicalon 09-24 History and Physical [id number] TGTIFF Normal [facility] MAGR Intraoperative Recordon 09-25-2019 MAGR Intraoperative Record MAGR Intra-Op Record Summary Primary Physician: Mi Licea DO Finalized Date/Time: 09/25/19 15:04:11 Pt. Name: SAGE HSU Jean Carlos OtregaB./Sex: 1935 FEMALE Med Rec #: [id number] Physician: Mi Licea DO Financial #: [id number] Pt. Type: I Room/Bed: [facility] Admit/Disch: 09/25/19 06:52:00 - Institution: Case Times [...] Role Performed Surgeon - Primary Anesthesiologist of [place] Stonemason Record Time In 09/25/19 09:37:00 09/25/19 09:37:00 09/25/19 09:37:00 Time Out 09/25/19 11:50:00 09/25/19 11:50:00 09/25/19 11:50:00 Procedure Arthroplasty Total Arthroplasty Total Arthroplasty Total Hip(Left) Hip(Left) Hip(Left) Last Modified By: Marj Sullivan RN, Stephanie RN Sauer, Stephanie RN 09/25/19 12:54:58 09/25/19 12:54:58 09/25/19 12:54:58 Entry 4 Entry 5 Entry 6 Case Attendee Montrell MCKEON, Shantal Moreira Leigh-Ann CST Role Performed Scrub Personnel Hypertrichologist Hypertrichologist Time In 09/25/19 09:37:00 09/25/19 09:37:00 09/25/19 [...] James Huddleston, James By: Eduardo Schultzw Eduardo DO Size 32MM 50MM 6.5 X 30MM 6.5 X 15MM Legal Arbitrator [employer] DEPUY DEPUY Catalog # Lot Number [id number] Expiration Date 05/08/24 03/10/29 01/07/29 Serial Number [id number] REF 1217-30-500 REF [id number] Device Identifier Human Readable EDDA Machine Readable EDDA MR Class Implant Usage Data Site Hip L Hip L Hip L Quantity 1 1 1 Reason for Explant Reason Not Retained Explant Disposition It Instructor Sterility External Indicator Result Internal Indicator Results [...] DO Size 6.5 X 15MM 50MM PS Legal Arbitrator DEPUY DEPUY DEPUY Catalog # Lot Number [id number] Expiration Date 11/07/28 04/07/29 04/07/29 Serial Number REF 1217-15-500 REF [id number] REF 1246-03-000 Device Identifier Human Readable EDDA Machine Readable EDDA MR Class Implant Usage Data Site Hip L Hip L Hip L Quantity 1 1 1 Reason for Explant Reason Not Retained Explant Disposition It Instructor Sterility External Indicator Result Internal Indicator Results [...] SHORT NECK COLLAR 14 TAPER SIZE 11 Legal Arbitrator DEPUY DEPUY Catalog # Lot Number [id number] Expiration Date 02/08/24 02/08/24 Serial Number REF [id number] REF 1365-22-000 Device Identifier Human Readable EDDA Machine Readable EDDA MR Class Implant Usage Data Site Hip L Hip L Quantity 1 1 Reason for Explant Reason Not Retained Explant Disposition It Instructor Sterility External Indicator Result Internal Indicator Results [...] Unfinalizing 09/25/19 15:04 MARSHA Modify Pick List [facility] MAGR PACU Recordon 0 MAGR PACU Record MAGR PACU Record Summary Primary Physician: Mi Licea DO Finalized Date/Time: 09/25/19 12:53:39 Pt. Name: SAGE HSU/Sex: 1935 FEMALE Med Rec #: [id number] Physician: Mi Licea DO Financial #: [id number] Pt. Type: I Room/Bed: [facility]/ Admit/Disch: 09/25/19 06:52:00 - Institution: PACU Case Times MAGR Entry 1 In PACU I 09/25/19 11:50:00 Discharge from PACU 09/25/19 12:40:00 I Last Modified By: Dionne Yun RN 09/25/19 12:53:35 Finalized By: Dionne Yun RN Document Signatures Signed By: Dionne Yun RN 09/25/19 12[facility]53 [facility] 09-25-2019 MAGR Preoperative Record MAGR Pre-Op Record Summary Primary Physician: Mi Licea DO Finalized Date/Time: 09/25/19 11:58:52 Pt. Name: SAGE HSU/Sex: 1935 FEMALE Med Rec #: [id number] Physician: Mi Licea DO Financial #: [id number] Pt. Type: I Room/Bed: 221/1 Admit/Disch: 09/25/19 [...] Signed By: Dionne Yun RN 09/25/19 11:58 [facility] Nutrition Noteon 09-25-2019 Nutrition Note Pt admitted for scheduled Lt total hip sx; placed on a Regular diet as tolerated w/ post op supplements BID along w/ usual vitamin/mineral supplementation. Nutritional supplements adjusted to what's available in house. Per strategic account director assessment, Pt reports wt loss of 2-13lb, however, exact amt, time frame and etiology unknown at this time. No wt hx available for past 2-3yrs. Full nutrition assessment completed d/t high risk r/t surgery greater than 65y (Pt is 83y). Will monitor wts, intake and labs. Pts last BM noted as 15 and takes metamucil daily at home. Will monitor need for additional fiber/issues w/ constipation. Hospitality associates to offer prunes/prune alfred q am. [facility] Operative Report - Surgeon/P bibterry 09-25-2019 Operative Report - Surgeon/Physician Preoperative diagnosis: [...] on: 10/18/2019 21:39 EDT] Mi Licea DO [facility] Pharmacy Noteon 09-25-2019 Pharmacy Note [...] [Verified on: 09/25/2019 13:26 EDT] Virgie Santos [facility] Pharmacy Note I have personally reviewed [...] [Verified on: 09/25/2019 13:04 EDT] Marj Mccall [facility] Progress Note - Nurseon 08- [...] on: 09/25/2019 19:48 EDT] Indy Vidal RN [facility] Progress Note - 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 Performed By: #### 7 [id number], [id number], [id number] #### [facility] (DEFAULT) [address] [place] [address] 87349 UA Bacteria 4+ [facility] Comment on above: Order Comment: Urina lysis Microscopic order added on by [employer] Expert Rules system. Performed By: #### 7 [id number], [id number], [id number] #### [facility] (DEFAULT) [address] [place] [address] 87182 UA Squam Epi Rare [facility] Comment on above: Order Comment: Urina lysis Microscopic order added on by [employer] Expert Rules system. Performed By: #### 7 [id number], [id number], [id number] #### [facility] (DEFAULT) [address] [place] [address] 13880 UA WBC 0-2 [facility] Comment on above: Order Comment: Urina lysis Microscopic order added on by [employer] Rules system. Performed By: #### 7 [id number], [id number], [id number] #### [facility] (DEFAULT) [address] [place] [address] 96167 UA w Culture if Ind Standard on 09-25-2019 Breakpoint UA [facility] Comment on above: Order Comment: beckman insert Performed By: #### 7 [id number], [id number], [id number] #### [facility] (DEFAULT) [address] [place] [address] 23005 Color (U) Yellow [facility] Comment on above: Order Comment: beckman insert Performed By: #### 7 [id number], [id number], [id number] #### [facility] (DEFAULT) [address] [place] [address] 16279 Culture? Indicated [facility] Comment on above: Order Comment: beckman insert Performed By: #### 7 253388, [id number], [id number] #### [facility] (DEFAULT) [address] [place] [address] 32204 Glucose (U) [Mass/Vol] Negative [facility] Comment on above: Order Comment: beckman insert Performed By: #### 7 708238, [id number], [id number] #### [facility] (DEFAULT) [address] [place] [address] 34898 Ketones Ql (U) Negative [facility] Comment on above: Order Comment: beckman insert Performed By: #### 7 [id number], [id number], [id number] #### [facility] (DEFAULT) [address] [place] [address] 88487 Micro? Indicated [facility] Comment on above: Order Comment: beckman insert Performed By: #### 7 247474, [id number], [id number] #### [facility] (DEFAULT) [address] [place] [address] 99839 UA Bilirubin Negative [facility] Comment on above: Order Comment: beckman insert Performed By: #### 7 750050, [id number], [id number] #### [facility] (DEFAULT) [address] [place] [address] 47533 UA Blood Negative Normal NEGATIVE [facility] Comment on above: Order Comment: beckman insert Performed By: #### 7 849991, [id number], [id number] #### [facility] (DEFAULT) [address] [place] [address] 59692 UA Clarity CLEAR Normal CLEAR [facility] Comment on above: Order Comment: beckman insert Performed By: #### 7 241929, [id number], [id number] #### [facility] (DEFAULT) [address] [place] [address] 71337 UA Leuk Est SMALL Abnormal NEGATIVE [facility] Comment on above: Order Comment: beckman insert Performed By: #### 7 467260, [id number], [id number] #### [facility] (DEFAULT) [address] [place] [address] 29043 UA Nitrite Positive Abnormal NEGATIVE [facility] Comment on above: Order Comment: beckman insert Performed By: #### 7 246506, [id number], [id number] #### [facility] (DEFAULT) [address] [place] [address] 97547 UA pH 7.0 Normal 5-8 [facility] Comment on above: Order Comment: beckman insert Performed By: #### 7 132970, [id number], [id number] #### [facility] (DEFAULT) [address] [place] [address] 93460 UA Protein Negative Normal NEGATIVE [facility] Comment on above: Order Comment: beckman insert Performed By: #### 7 150819, [id number], [id number] #### [facility] (DEFAULT) [address] [place] [address] 13104 UA Spec Grav 1.020 Normal 1.001-1.[address] [place] [address] Comment on above: Order Comment: beckman insert Performed By: #### 7 016997, [id number], [id number] #### [facility] (DEFAULT) [address] [place] [address] 71348 UA Urobilinogen 0.2 mg/dL Normal 0.2-1.0 [facility] Comment on above: Order Comment: beckman insert Performed By: #### 7 149494, [id number], [id number] #### [facility] (DEFAULT) [address] [place] [address] Urine Source Clean Catch [facility] Comment on above: Order Comment: beckman insert Performed By: #### 7 794873, [id number], [id number] #### [facility] (DEFAULT) [address] [place] [address] XR Hip Complete Lefton 09-24 XR Hip [...] MD 09/25/19 3:55 pm Technologist: OCHOA NAZARIO [facility] Patient Handouton 09-24-2019 Patient Handout [facility] Progress Note - Nurseon 09-08 Progress Note - Nurse Spoke with pt zach mora arrival time of 0700 and NPO status. Verbalized understanding. [Electronically Signed on: 09/22/2019 09:47 EDT] Kimberley Holden RN [Verified on: 09/22/2019 09:47 EDT] Kimberley Holden RN [facility] SARS-CoV-2 (COVID-19) PCRon 09-22-2019 COVID-19 PCR Not Detected Normal Not Detected [facility] Comment on above: Performed By: #### 7 572444, [id number], [id number] #### [facility] (DEFAULT) [address] [place] [address] Employed in healthcare? Unknown [facility] Comment on above: Performed By: #### 7 364545, [id number], [id number] #### [facility] (DEFAULT) [address] [place] [address] Group care resident? Unknown [facility] Comment on above: Performed By: #### 7 339276, [id number], [id number] #### [facility] (DEFAULT) [address] [place] [address] Hospitalized due to COVID-19? Unknown [facility] Comment on above: Performed By: #### 7 757565, [id number], [id number] #### [facility] (DEFAULT) [address] [place] [address] In ICU? Unknown [facility] Comment on above: Performed By: #### 7 404205, [id number], [id number] #### [facility] (DEFAULT) [address] [place] [address] status? Unknown [facility] Comment on above: Performed By: #### 7 014009, [id number], [id number] #### [facility] (DEFAULT) [address] [place] [address] Symptomatic as defined by CDC? Unknown [facility] Comment on above: Performed By: #### 7 286005, [id number], [id number] #### [facility] (DEFAULT) [address] [place] [address] Coding Summaryon 09-13-2019 Coding Summary CODING DATE: 020 [facility] STATUS: Home PAYOR: Medicare APC DESCRIPTION 5733 Level 3 Minor Procedures ADMIT DX: REASON FOR VISIT DX: Z01.818 Encounter for other preprocedural examination I10 Essential (primary) hypertension I25.10 Atherosclerotic heart disease of [place] coronary artery without angina pectoris FINAL DX: PRINCIPAL: Z01.818 Encounter for other preprocedural examination SECONDARY: I10 Essential (primary) hypertension I25.10 Atherosclerotic heart disease of [place] coronary artery without angina pectoris K21.9 Gastro-esophageal [...] Marisela Lawrence Date Saved: 09/13/2019 09:18 am [facility] Coding Summaryon 09-06-2019 Coding Summary CODING DATE: 020 [facility] STATUS: Home PAYOR: Medicare APC DESCRIPTION 5733 Level 3 Minor Procedures ADMIT DX: REASON FOR VISIT DX: Z01.818 Encounter for other preprocedural examination I10 Essential (primary) hypertension I25.10 Atherosclerotic heart disease of [place] coronary artery without angina pectoris FINAL DX: PRINCIPAL: Z01.818 Encounter for other preprocedural examination SECONDARY: I10 Essential (primary) hypertension I25.10 Atherosclerotic heart disease of [place] coronary artery without angina pectoris K21.9 Gastro-esophageal reflux disease without esophagitis PYMT PROC APC STAT DESCRIPTION DOCTOR NAME DATE NOTE: The code number assigned matches the documented diagnosis and / or procedure in the patient's chart. However, the narrative phrase printed from the coding software may appear abbreviated, or result in slightly different terminology. Coded By: Marisela Lawrence Date Saved: 09/06/2019 09:20 am [facility] Progress Note - Nurseon 08-09 Progress Note - Nurse chart reviewed per Dr Akbar anesthesiologist, and cleared for surgery on 09/25/2019 [Electronically Signed on: 09/04/2019 14:30 EDT] Nimco Albarado RN [Verified on: 09/04/2019 14:30 EDT] Nimco Albarado RN [facility] Progress Note - Nurse Xin at Dr Aydin rosario notified that pt has positive urine culture. [Electronically Signed on: 09/04/2019 13:37 EDT] Dionne Yun RN [Verified on: 09/04/2019 13:37 EDT] Dionne Yun RN [facility] Provider Orderson 09-04-2019 Provider Orders [id number] [facility] C Urineon 09-03-2019 C Urine [...] S <=4 Verified Tri/Sulf S <=2/38 Verified [facility] Comment on above: Performed By: #### 1 [id number], [id number], [id number] #### [facility] (DEFAULT) [address] [place] [address] 84550 C MRSA Screenon 09-02-2019 C MRSA Screen Negative Normal [facility] Comment on above: Performed By: #### 1 [id number] #### [facility] (DEFAULT) [address] [place] [address] .Auto Diff 1on 09-01-2019 Auto [place] % 10 % Normal 1-12 [facility] Comment on above: Performed By: #### 7 149196, [id number], [id number] #### [facility] (DEFAULT) [address] [place] [address] Baso Abs# 0.0 x10 Normal 0.0-0.2 [facility] Comment on above: Performed By: #### 7 352790, [id number], [id number] #### [facility] (DEFAULT) [address] [place] [address] Basophils/100 WBC (Bld) 0.3 % Normal 0.2-2.0 [facility] Comment on above: Performed By: #### 7 517393, [id number], [id number] #### [facility] (DEFAULT) [address] [place] [address] Eos Abs# 0.1 x10 Normal 0.0-0.4 [facility] Comment on above: Performed By: #### 7 914614, 91287021, [id number] #### [facility] (DEFAULT) [address] [place] [address] Eosinophils/100 WBC (Bld) 0.9 % Normal 0.9-4.0 [facility] Comment on above: Performed By: #### 7 171579, 58802986, [id number] #### [facility] (DEFAULT) [address] [place] [address] Lymphocytes (Bld) [#/Vol] 1.0 x10 Low 1.3-2.9 [facility] Comment on above: Performed By: #### 7 299030, [id number], [id number] #### [facility] (DEFAULT) [address] [place] [address] 00018 Lymphocytes/100 WBC (Bld) 10 % Low 14-48 [facility] Comment on above: Performed By: #### 7 658456, [id number], [id number] #### [facility] (DEFAULT) [address] [place] [address] 56778 [place] Abs# 1.0 x10 High 0.0-0.8 [facility] Comment on above: Performed By: #### 7 821572, [id number], [id number] #### [facility] (DEFAULT) [address] [place] [address] 79540 Neut Abs# 8.0 x10 Normal 1.5-9.2 [facility] Comment on above: Performed By: #### 7 104791, 44135684, [id number] #### [facility] (DEFAULT) [address] [place] [address] 86220 Neutrophils/100 WBC (Bld) 79 % Normal 44-88 [facility] Comment on above: Performed By: #### 7 242769, 42769059, [id number] #### [facility] (DEFAULT) [address] [place] [address] Standardon 09-01-2019 eGFR Non AA 44 mL/min/1.73m2 [facility] Comment on above: Performed By: #### 7 246485, 40212507, [id number] #### [facility] (DEFAULT) [address] [place] [address] eGFR AA 54 mL/min/1.73m2 [facility] Comment on above: Result Comment: Locker Room Attendant kody Kidney disease could be indicated at eGFRs of less than 60 ml/min/1.73m2. Kidney Failure is indicated at less than 15 ml/min/1.73m2 Performed By: #### 7 863405, 28909953, [id number] #### [facility] (DEFAULT) [address] [place] [address] 80458 Anion gap [Moles/Vol] 15.0 mmol/L Normal 5.0-19.0 [facility] Comment on above: Performed By: #### 7 793527, 44329888, [id number] #### [facility] (DEFAULT) [address] [place] [address] 35941 Calcium [Mass/Vol] 9.2 mg/dL Normal 8.9-10.3 [facility] Comment on above: Performed By: #### 7 136335, 81828382, [id number] #### [facility] (DEFAULT) [address] [place] [address] 76162 Chloride [Moles/Vol] 101 mmol/L Normal 101-111 [facility] Comment on above: Performed By: #### 7 751670, 89917580, [id number] #### [facility] (DEFAULT) [address] [place] [address] 66271 CO2 [Moles/Vol] 25 mmol/L Normal 21-32 [facility] Comment on above: Performed By: #### 7 648505, 98108662, [id number] #### [facility] (DEFAULT) [address] [place] [address] 17122 Creatinine [Mass/Vol] 1.17 mg/dL Normal 0.60-1.30 [facility] Comment on above: Performed By: #### 7 780866, 97328754, [id number] #### [facility] (DEFAULT) [address] [place] [address] 23777 Glucose [Mass/Vol] 94.0 mg/dL Normal 74.0-118.0 [facility] Comment on above: Performed By: #### 7 937538, 70125735, [id number] #### [facility] (DEFAULT) [address] [place] [address] 84346 Osmolality [Osmolality] 276 mOsm/L [facility] Comment on above: Performed By: #### 7 232956, 04448176, [id number] #### [facility] (DEFAULT) [address] [place] [address] 08169 Potassium [Moles/Vol] 4.0 mmol/L Normal 3.6-5.1 [facility] Comment on above: Performed By: #### 7 159002, 50415489, [id number] #### [facility] (DEFAULT) [address] [place] [address] 20723 Sodium [Moles/Vol] 137.0 mmol/L Normal 136.0-144 . 0 [facility] Comment on above: Performed By: #### 7 723096, 06800830, [id number] #### [facility] (DEFAULT) [address] [place] [address] Urea nitrogen [Mass/Vol] 20 mg/dL Normal 8-26 [facility] Comment on above: Performed By: #### 7 088002, 03941215, [id number] #### [facility] (DEFAULT) [address] [place] [address] Urea nitrogen/Creatinine [Mass ratio] 17.0 mg/mg High 4.6-16.2 [facility] Comment on above: Performed By: #### 7 738855, 70144611, [id number] #### [facility] (DEFAULT) [address] [place] [address] CBC w/ Auto Diffon 0 Erythrocyte distribution width (RBC) [Ratio] 13.9 % Normal 11.5-15.0 [facility] Comment on above: Performed By: #### 7 753841, 80587956, [id number] #### [facility] (DEFAULT) [address] [place] [address] Hematocrit (Bld) [Volume fraction] 38.5 % Normal 33.7-40.4 [facility] Comment on above: Performed By: #### 7 377516, 66451382, [id number] #### [facility] (DEFAULT) [address] [place] [address] Hemoglobin (Bld) [Mass/Vol] 12.6 g/dL Normal 11.3-15.9 [facility] Comment on above: Performed By: #### 7 662078, 33413852, [id number] #### [facility] (DEFAULT) [address] [place] [address] Man Diff? Auto Normal [facility] Comment on above: Performed By: #### 7 879693, 92638091, [id number] #### [facility] (DEFAULT) [address] [place] [address] 94676 MCH (RBC) [Entitic mass] 33 pg Normal 24-34 [facility] Comment on above: Performed By: #### 7 571138, 53802961, [id number] #### [facility] (DEFAULT) [address] [place] [address] 32431 MCHC (RBC) [Mass/Vol] 33 g/dL Normal 26-37 [facility] Comment on above: Performed By: #### 7 374739, 47081921, [id number] #### [facility] (DEFAULT) [address] [place] [address] 60979 MCV (RBC) [Entitic vol] 101 fL High 81-100 [facility] Comment on above: Performed By: #### 7 196386, 33433850, [id number] #### [facility] (DEFAULT) [address] [place] [address] 45141 Platelet mean volume (Bld) [Entitic vol] 9.5 fL Normal 6.3-10.2 [facility] Comment on above: Performed By: #### 7 043783, 95057472, [id number] #### [facility] (DEFAULT) [address] [place] [address] 76449 Platelets (Bld) [#/Vol] 292 x10 Normal 138-427 [facility] Comment on above: Performed By: #### 7 830119, 59371622, [id number] #### [facility] (DEFAULT) [address] [place] [address] 68467 RBC (Bld) [#/Vol] 3.82 x10 Normal 3.70-5.30 [facility] Comment on above: Performed By: #### 7 134518, 52664782, [id number] #### [facility] (DEFAULT) [address] [place] [address] 15054 WBC (Bld) [#/Vol] 10.1 x10 Normal 3.5-10.5 [facility] Comment on above: Performed By: #### 7 599194, 94429290, [id number] #### [facility] (DEFAULT) [address] [place] [address] UA [id number] 09-01-2019 RBC (U) [#/Vol] None Seen [facility] Comment on above: Order Comment: Urina lysis Microscopic order added on by [employer] system. Performed By: #### 1 [id number], [id number], [id number] #### [facility] (DEFAULT) [address] [place] [address] UA Amorph. 1+ [facility] Comment on above: Order Comment: Urina lysis Microscopic order added on by [employer] system. Performed By: #### 1 [id number], [id number], [id number] #### [facility] (DEFAULT) [address] [place] [address] UA Bacteria 4+ [facility] Comment on above: Order Comment: Urina lysis Microscopic order added on by [employer] system. Performed By: #### 1 [id number], [id number], [id number] #### [facility] (DEFAULT) [address] [place] [address] UA Squam Epi Moderate [facility] Comment on above: Order Comment: Urina lysis Microscopic order added on by [employer] system. Performed By: #### 1 [id number], [id number], [id number] #### [facility] (DEFAULT) [address] [place] [address] UA WBC 15-20 [facility] Comment on above: Order Comment: Urina lysis Microscopic order added on by [employer] system. Performed By: #### 1 [id number], [id number], [id number] #### [facility] (DEFAULT) [address] [place] [address] UA w Culture if Ind Standard on 09-01-2019 Breakpoint UA [facility] Comment on above: Performed By: #### 1 [id number], [id number], [id number] #### [facility] (DEFAULT) [address] [place] [address] Color (U) Yellow Normal [facility] Comment on above: Performed By: #### 1 [id number], [id number], [id number] #### [facility] (DEFAULT) [address] [place] [address] 14861 Culture? Yes Normal [facility] Comment on above: Performed By: #### 1 [id number], [id number], [id number] #### [facility] (DEFAULT) [address] [place] [address] 10502 Glucose (U) [Mass/Vol] Negative [facility] Comment on above: Performed By: #### 1 [id number], [id number] #### [facility] (DEFAULT) [address] [place] [address] 46789 Ketones Ql (U) Negative [facility] Comment on above: Performed By: #### 1 [id number], [id number] #### [facility] (DEFAULT) [address] [place] [address] 89662 Micro? Indicated [facility] Comment on above: Performed By: #### 1 [id number], [id number], [id number] #### [facility] (DEFAULT) [address] [place] [address] 36342 UA Bilirubin Negative Normal [facility] Comment on above: Performed By: #### 1 [id number], [id number], [id number] #### [facility] (DEFAULT) [address] [place] [address] 63287 UA Blood TRACE Abnormal NEGATIVE [facility] Comment on above: Performed By: #### 1 [id number], [id number], [id number] #### [facility] (DEFAULT) [address] [place] [address] 92872 UA Clarity CLEAR Normal CLEAR [facility] Comment on above: Performed By: #### 1 [id number], [id number], [id number] #### [facility] (DEFAULT) [address] [place] [address] 30001 UA Leuk Est MODERATE Abnormal NEGATIVE [facility] Comment on above: Performed By: #### 1 [id number], [id number], [id number] #### [facility] (DEFAULT) [address] [place] [address] 92556 UA Nitrite Positive Abnormal NEGATIVE [facility] Comment on above: Performed By: #### 1 [id number], [id number], [id number] #### [facility] (DEFAULT) [address] [place] [address] 69461 UA pH 5.5 Normal 5-8 [facility] Comment on above: Performed By: #### 1 [id number], [id number], [id number] #### [facility] (DEFAULT) [address] [place] [address] 24320 UA Protein Negative Normal NEGATIVE [facility] Comment on above: Performed By: #### 1 [id number], [id number], [id number] #### [facility] (DEFAULT) [address] [place] [address] 59847 UA Spec Grav 1.025 Normal 1.001-1.[address] [place] [address] Comment on above: Performed By: #### 1 [id number], [id number], [id number] #### [facility] (DEFAULT) [address] [place] [address] 96440 UA Urobilinogen 0.2 mg/dL Normal 0.2-1.0 [facility] Comment on above: Performed By: #### 1 [id number], [id number] #### [facility] (DEFAULT) [address] [place] [address] 31435 Urine Source Clean Catch Normal [facility] Comment on above: Performed By: #### 1 [id number], [id number], [id number] #### [facility] (DEFAULT) [address] [place] [address] 05471 JOINT PAIN INJECTIONon 09-06 JOINT PAIN INJECTION [facility] Department of Radiology [address] [place] [id number] ===== Patient Name: SAGE HSU : 1935 Sex: F Age: Race: White Pt. Location: Patient Status: D Ordered Date: 08/08/2018 3:50:00 PM Completed Date: 09/06/2018 03:43 PM Requesting Provider: HERMELINDO HILLMAN Attending Provider: HERMELINDO HILLMAN Report Copy To: GYPSY MCMAHON Signs & Symptoms: M16.12 Unilateral primary osteoarthritis, left hip I10 History: [place] Comments: , Dr. Ochoa , Body Part: [...] guidance. Electronically signed by:Christy Ochoa. Transcribed by: [email or web address], User Resident: Electronically Signed by: CHRISTY OCHOA @ 09/09/2018 05:57 PM Normal [facility] Comment on above: Order Comment: , Dr. Ochoa , Body Part: Hip , Side: LEFT , Dr. Ochoa , Body Part: Hip , Side: LEFT , , , Ordering Provider - HERMELINDO HILLMAN MD , CT 3D LOWER EXTREMITY WO CON TRAST LEFTon 08-02-2018 CT 3D LOWER EXTREMITY WO CONTRAST LEFT [facility] Department of Radiology [address] [place] [id number] ===== Patient Name: SAGE HSU : 1935 Sex: F Age: Race: White Pt. Location: 84 Patient Status: D Ordered Date: 07/22/2018 9:55:00 AM Completed Date: 08/02/2018 09:41 AM Requesting Provider: MIRTHA VELÁSQUEZ Attending Provider: MIRTHA VELÁSQUEZ Report Copy To: GYPSY MCMAHON Signs & Symptoms: S72.045D Nondisp fx of base of nk of l femr, 7thD I10 History: [place], PHONE:[phone] OR [phone],*NEEDS ORTHO F/U APPT. MEDICARE NO PC REQ JY Comments: , Evaluate left hip healing Exam: CT 3D LOWER EXTREMITY WO CONTRAST LEFT ===== Addendum Begins Please note a misprint in the impression below. It says screw fixation of impacted offset humeral neck fracture shows good healing. This should read screw fixation of impacted offset femoral neck fracture shows good healing. Electronically signed by:Ciro Jerome. Addendum Ends CT 3D LOWER EXTREMITY [...] 3. Moderate bilateral knee arthritis. Electronically signed by:Ciro Jerome. Transcribed by: [email or web address], User Resident: Electronically Signed by: CIRO JEROME @ 08/08/2018 02:20 PM [place] [facility] Comment on above: Order Comment: , Jessie perkins left hip healing HIP LEFT 1 OR 2 VWS WITH PEL VISon 03-18-2018 HIP LEFT 1 OR 2 VWS WITH PELVIS [facility] Department of Radiology [address] [place] [phone] ===== Patient Name: SAGE HSU : 1935 Sex: F Age: Race: [...] skeleton similar to prior study Electronically signed by:Ciro Jerome. Transcribed by: [email or web address], User Resident: Electronically Signed by: CIRO JEROME @ 03/18/2018 02:19 PM Normal [facility] Comment on above: Order Comment: , , = ========= , Ordering Provider - MIRTHA VELÁSQUEZ PA-C , HIP LEFT 1 OR 2 VWS WITH PEL VISon 01-10-2018 HIP LEFT 1 OR 2 VWS WITH PELVIS [facility] Department of Radiology [address] [place] [id number] ===== Patient Name: SAGE HSU : 1935 Sex: F Age: Race: White Pt. Location: Patient Status: Ordered Date: 01/10/2018 1:10:00 PM Completed Date: 01/10/2018 01:10 PM Requesting Provider: MIRTHA VELÁSQUEZ Attending Provider: Report Copy To: Signs & Symptoms: S72.045D Nondisp fx of base of nk of l femr, 7thD I10 History: [place] Comments: , Views (X-RAY, HIP): Radiologic Protocol [...] 2. Bilateral degenerative hip arthritis. Electronically signed by:Sharon Whatley. Transcribed by: [email or web address], User Resident: Electronically Signed by: SHARON WHATLEY @ 01/10/2018 04:38 PM Normal [facility] Comment on above: Order Comment: , Carmella ws (X-RAY, HIP): Radiologic Protocol , Views (X-RAY, HIP): Radiologic Protocol , , , Ordering Provider Brennan VELÁSQUEZ PA-C , HIP LEFT 1 OR 2 VWS WITH PEL VISon 11-01-2017 HIP LEFT 1 OR 2 VWS WITH PELVIS [facility] Department of Radiology [address] [place] [phone] ===== Patient Name: SAGE HSU : 1935 Sex: F Age: Race: White Pt. Location: Patient Status: Ordered Date: 11/01/2017 3:00:00 PM Completed Date: 11/01/2017 03:00 PM Requesting Provider: MIRTHA VELÁSQUEZ Attending Provider: Report Copy To: Signs & Symptoms: S72.045D Nondisp fx of base of nk of l femr, 7thD I10 History: [place] Comments: , Views (X-RAY, HIP): Radiologic Protocol [...] study. Electronically signed by:Gerson Rodriguez. Transcribed by: [email or web address], User Resident: Electronically Signed by: GERSON RODRIGUEZ @ 11/01/2017 03:25 PM Normal [facility] Comment on above: Order Comment: , Elanae ws (X-RAY, HIP): Radiologic Protocol , Views (X-RAY, HIP): Radiologic Protocol , , , Ordering Provider - MIRTHA VELÁSQUEZ PA-C , HIP LEFT 1 OR 2 VWS WITH PEL VISon 09-21-2017 HIP LEFT 1 OR 2 VWS WITH PELVIS [facility] Department of Radiology [address] [place] [phone] ===== Patient Name: SAGE HSU : 1935 Sex: F Age: Race: [...] fixation of left hip fracture Electronically signed by:Ciro Jerome. Transcribed by: [email or web address], User Resident: Electronically Signed by: CIRO JEROME @ 09/21/2017 03:27 PM Normal [facility] Comment on above: Order Comment: , , = ========= , Ordering Rebeka - MIRTHA MORENO-C , Vital Signs Date Time Vital Sign Value Performing Clinician Facility 07-27-2024 10:42-0400 Body height 175.3 cm Derrek Kirkland MD Work Phone: [facility] 07-27-2024 10:42-0400 Diastolic blood pressure 67 mm[Hg] Derrek Kirkland MD Work Phone: [facility] 07-27-2024 10:42-0400 Systolic blood pressure 131 mm[Hg] Derrek Kirkland MD Work Phone: [facility] 07-13-2024 08:56-0400 Body height 177.8 cm Gypsy Mcmahon MD Work Phone: [facility] 07-13-2024 08:56-0400 Body mass index (BMI) [Ratio] 19.1 kg/m2 Gypsy Mcmahon MD Work Phone: [facility] 07-13-2024 08:56-0400 Body weight 60.49 kg Gypsy Mcmahon MD Work Phone: [facility] 07-13-2024 08:56-0400 Diastolic blood pressure 63 mm[Hg] Gypsy Mcmahon MD Work Phone: [facility] 07-13-2024 08:56-0400 Heart rate 64 /min Gypsy Mcmahon MD Work Phone: [facility] 07-13-2024 08:56-0400 Respiratory rate 12 /min Gypsy Mcmahon MD Work Phone: [facility] 07-13-2024 08:56-0400 SaO2% (BldA) [Mass fraction] 98 % Gypsy Mcmahon MD Work Phone: [facility] 07-13-2024 08:56-0400 Systolic blood pressure 156 mm[Hg] Gypsy Mcmahon MD Work Phone: [facility] 05-25-2024 14:44-0400 Body temperature 97.3 [degF] Gypsy Mcmahon MD Work Phone: [facility] 05-25-2024 14:44-0400 Diastolic blood pressure 70 mm[Hg] Gypsy Mcmahon MD Work Phone: [facility] 05-25-2024 14:44-0400 Heart rate 74 /min Gyspy Mcmahon MD Work Phone: [facility] 05-25-2024 14:44-0400 Systolic blood pressure 135 mm[Hg] Gypsy Mcmahon MD Work Phone: [facility] 05-05-2024 13:42-0400 Body temperature 97.5 [degF] Gypsy Mcmahon MD Work Phone: [facility] 05-05-2024 13:42-0400 Diastolic blood pressure 64 mm[Hg] Gypsy Mcmahon MD Work Phone: [facility] 05-05-2024 13:42-0400 Heart rate 67 /min Gypsy Mcmahon MD Work Phone: [facility] 05-05-2024 13:42-0400 Respiratory rate 16 /min Gypsy Mcmahon MD Work Phone: [facility] 05-05-2024 13:42-0400 SaO2% (BldA) [Mass fraction] 96 % Gypsy Mcmahon MD Work Phone: [facility] 05-05-2024 13:42-0400 Systolic blood pressure 136 mm[Hg] Gypsy Mcmahon MD Work Phone: [facility] 05-05-2024 06:00-0400 Body weight 72.6 kg Gypsy Mcmahon MD Work Phone: [facility] 05-04-2024 10:30-0400 Inhaled oxygen flow rate 2 L/min Gypsy Mcmahon MD Work Phone: [facility] 05-02-2024 23:33-0400 Inhaled oxygen concentration 0 % Gypsy Mcmahon MD Work Phone: [facility] 05-01-2024 15:02-0400 Body height 177.8 cm Gypsy Mcmahon MD Work Phone: [facility] 04-13-2024 14:57-0500 Body height 177.8 cm [facility] 04-13-2024 14:57-0500 Body mass index (BMI) [Ratio] 20.2 kg/m2 [facility] 04-13-2024 14:57-0500 Body temperature 97.5 [degF] [facility] 04-13-2024 14:57-0500 Body weight 63.95 kg [facility] 04-13-2024 14:57-0500 Diastolic blood pressure 61 mm[Hg] [facility] 04-13-2024 14:57-0500 Heart rate 51 /min [facility] 04-13-2024 14:57-0500 Systolic blood pressure 162 mm[Hg] [facility] 03-23-2024 14:07-0500 Body height 177.8 cm [facility] 03-23-2024 14:07-0500 Body mass index (BMI) [Ratio] 20.2 kg/m2 [facility] 03-23-2024 14:07-0500 Body weight 63.95 kg [facility] 03-23-2024 14:07-0500 Diastolic blood pressure 67 mm[Hg] [facility] 03-23-2024 14:07-0500 Heart rate 60 /min [facility] 03-23-2024 14:07-0500 Systolic blood pressure 150 mm[Hg] [facility] 02-24-2024 11:12-0500 Body height 177 cm Derrek Kirkland MD Work Phone: [facility] 02-24-2024 11:12-0500 Body mass index (BMI) [Ratio] 21.72 kg/m2 Derrek Kirkland MD Work Phone: [facility] 02-24-2024 11:12-0500 Body temperature 97.7 [degF] Derrek Kirkland MD Work Phone: [facility] 02-24-2024 11:12-0500 Body weight 68.04 kg Derrek Kirkland MD Work Phone: [facility] 02-24-2024 11:12-0500 Diastolic blood pressure 52 mm[Hg] Derrek Kirkland MD Work Phone: [facility] 02-24-2024 11:12-0500 Heart rate 72 /min Derrek Kirkland MD Work Phone: [facility] 02-24-2024 11:12-0500 Respiratory rate 18 /min Derrek Kirkland MD Work Phone: [facility] 02-24-2024 11:12-0500 Systolic blood pressure 132 mm[Hg] Derrek Kirkland MD Work Phone: [facility] 02-21-2024 13:37-0500 Body height 177.8 cm [facility] 02-21-2024 13:37-0500 Body mass index (BMI) [Ratio] 20.7 kg/m2 [facility] 02-21-2024 13:37-0500 Body weight 65.77 kg [facility] 02-21-2024 13:37-0500 Diastolic blood pressure 49 mm[Hg] [facility] 02-21-2024 13:37-0500 Heart rate 62 /min [facility] 02-21-2024 13:37-0500 Systolic blood pressure 110 mm[Hg] [facility] 01-20-2024 10:39-0500 Body height 177 cm Derrek Kirkland MD Work Phone: [facility] 01-20-2024 10:39-0500 Body mass index (BMI) [Ratio] 21.72 kg/m2 Derrek Kirkland MD Work Phone: [facility] 01-20-2024 10:39-0500 Body temperature 98.4 [degF] Derrek Kirkland MD Work Phone: [facility] 01-20-2024 10:39-0500 Body weight 68.04 kg Derrek Kirkland MD Work Phone: [facility] 01-20-2024 10:39-0500 Diastolic blood pressure 52 mm[Hg] Derrek Kirkland MD Work Phone: [facility] 01-20-2024 10:39-0500 Heart rate 84 /min Derrek Kirkland MD Work Phone: [facility] 01-20-2024 10:39-0500 Respiratory rate 18 /min Derrek Kirkland MD Work Phone: [facility] 01-20-2024 10:39-0500 SaO2% (BldA) [Mass fraction] 98 % Derrek Kirkland MD Work Phone: [facility] 01-20-2024 10:39-0500 Systolic blood pressure 148 mm[Hg] Derrek Kirkland MD Work Phone: [facility] 01-07-2024 11:07-0500 Body temperature 97.5 [degF] Derrek Kirkland MD Work Phone: [facility] 01-07-2024 11:07-0500 Diastolic blood pressure 64 mm[Hg] Derrek Kirkland MD Work Phone: [facility] 01-07-2024 11:07-0500 Heart rate 77 /min Derrek Kirkland MD Work Phone: [facility] 01-07-2024 11:07-0500 Respiratory rate 16 /min Derrek Kirkland MD Work Phone: [facility] 01-07-2024 11:07-0500 SaO2% (BldA) [Mass fraction] 100 % Derrek Kirkland MD Work Phone: [facility] 01-07-2024 11:07-0500 Systolic blood pressure 131 mm[Hg] Derrek Kirkland MD Work Phone: [facility] 01-06-2024 03:22-0500 Body mass index (BMI) [Ratio] 21.54 kg/m2 Derrek Kirkland MD Work Phone: [facility] 01-06-2024 03:22-0500 Body weight 68.1 kg Derrek Kirkland MD Work Phone: [facility] 01-01-2024 18:33-0500 Body height 177.8 cm Derrek Kirkland MD Work Phone: [facility] 01-01-2024 16:38-0500 Body temperature 98.6 [degF] Derrek Kirkland MD Work Phone: [facility] 01-01-2024 16:38-0500 SaO2% (BldA) [Mass fraction] 100.3 % Derrek Kirkland MD Work Phone: [facility] 12-31-2023 09:36-0500 Diastolic blood pressure 80 mm[Hg] [facility] 12-31-2023 09:36-0500 Systolic blood pressure 206 mm[Hg] [facility] 12-31-2023 09:05-0500 Body height 177.8 cm [facility] 12-31-2023 09:05-0500 Body mass index (BMI) [Ratio] 20.69 kg/m2 [facility] 12-31-2023 09:05-0500 Body temperature 96.91 [degF] [facility] 12-31-2023 09:05-0500 Body weight 65.4 kg [facility] 12-31-2023 09:05-0500 Heart rate 56 /min [facility] 12-31-2023 09:05-0500 Respiratory rate 18 /min [facility] 12-31-2023 09:05-0500 SaO2% (BldA) [Mass fraction] 97 % [facility] 12-30-2023 13:07-0500 Body mass index (BMI) [Ratio] 20.23 kg/m2 Derrek Kirkland MD Work Phone: [facility] 12-30-2023 13:07-0500 Body weight 63.96 kg Derrek Kirkland MD Work Phone: [facility] 12-30-2023 13:07-0500 Diastolic blood pressure 68 mm[Hg] Derrek Kirkland MD Work Phone: [facility] 12-30-2023 13:07-0500 Heart rate 65 /min Derrek Kirkland MD Work Phone: [facility] 12-30-2023 13:07-0500 Systolic blood pressure 186 mm[Hg] Derrek Kirkland MD Work Phone: [facility] 12-23-2023 14:27-0500 Body height 177.8 cm [facility] 12-23-2023 14:27-0500 Body mass index (BMI) [Ratio] 19.37 kg/m2 [facility] 12-23-2023 14:27-0500 Body weight 61.24 kg [facility] 12-09-2023 10:02-0400 Body height 177.8 cm Derrek Kirkland MD Work Phone: [facility] 12-09-2023 10:02-0400 Body mass index (BMI) [Ratio] 19.66 kg/m2 Derrek Kirkland MD Work Phone: [facility] 12-09-2023 10:02-0400 Body temperature 97.3 [degF] Derrek Kirkland MD Work Phone: [facility] 12-09-2023 10:02-0400 Body weight 62.14 kg Derrek Kirkland MD Work Phone: [facility] 12-09-2023 10:02-0400 Diastolic blood pressure 72 mm[Hg] Derrek Kirkland MD Work Phone: [facility] 12-09-2023 10:02-0400 Heart rate 78 /min Derrek Kirkland MD Work Phone: [facility] 12-09-2023 10:02-0400 SaO2% (BldA) [Mass fraction] 98 % Derrek Kirkland MD Work Phone: [facility] 12-09-2023 10:02-0400 Systolic blood pressure 172 mm[Hg] Derrek Kirkland MD Work Phone: [facility] 11-16-2023 09:04-0400 Body height 175.3 cm [facility] 11-16-2023 09:04-0400 Body mass index (BMI) [Ratio] 19.94 kg/m2 [facility] 11-16-2023 09:04-0400 Body weight 61.24 kg [facility] 10-27-2023 14:41-0400 Body height 176.5 cm [facility] 10-27-2023 14:41-0400 Body mass index (BMI) [Ratio] 19.8 kg/m2 [facility] 10-27-2023 14:41-0400 Body weight 61.69 kg [facility] 10-14-2023 10:22-0400 Body height 177.8 cm Derrek Kirkland MD Work Phone: [facility] 10-14-2023 10:22-0400 Body mass index (BMI) [Ratio] 19.51 kg/m2 Derrek Kirkland MD Work Phone: [facility] 10-14-2023 10:22-0400 Body weight 61.69 kg Derrek Kirkland MD Work Phone: [facility] 10-14-2023 10:22-0400 Diastolic blood pressure 76 mm[Hg] Derrek Kirkland MD Work Phone: [facility] 10-14-2023 10:22-0400 Heart rate 72 /min Derrek Kirkland MD Work Phone: [facility] 10-14-2023 10:22-0400 SaO2% (BldA) [Mass fraction] 93 % Derrek Kirkland MD Work Phone: [facility] 10-14-2023 10:22-0400 Systolic blood pressure 148 mm[Hg] Derrek Kirkland MD Work Phone: [facility] 06-17-2023 14:00-0400 Diastolic blood pressure 68 mm[Hg] Derrek Kirkland MD Work Phone: [facility] 06-17-2023 14:00-0400 Heart rate 72 /min Derrek Kirlkand MD Work Phone: [facility] 06-17-2023 14:00-0400 Systolic blood pressure 124 mm[Hg] Derrek Kirkland MD Work Phone: [facility] 06-17-2023 13:59-0400 Body height 177.8 cm Derrek Kirkland MD Work Phone: [facility] 06-17-2023 13:59-0400 Body mass index (BMI) [Ratio] 19.63 kg/m2 Derrek Kirkland MD Work Phone: [facility] 06-17-2023 13:59-0400 Body weight 62.05 kg Derrek Kirkland MD Work Phone: [facility] 05-24-2023 13:35-0400 Body height 177.8 cm MD Gypsy Mcmahon Work Phone: [facility] 05-24-2023 13:35-0400 Body mass index (BMI) [Ratio] 18.8 kg/m2 MD Gypsy Mcmahon Work Phone: [facility] 05-24-2023 13:35-0400 Body temperature 97.7 [degF] MD Gypsy Mcmahon Work Phone: [facility] 05-24-2023 13:35-0400 Body weight 59.42 kg MD Gypsy Mcmahon Work Phone: [facility] 05-24-2023 13:35-0400 Diastolic blood pressure 54 mm[Hg] MD Gypsy Mcmahon Work Phone: [facility] 05-24-2023 13:35-0400 Heart rate 63 /min MD Gypsy Mcmahon Work Phone: [facility] 05-24-2023 13:35-0400 Systolic blood pressure 127 mm[Hg] MD Gypsy Mcmahon Work Phone: [facility] 05-21-2023 10:26-0400 Body height 177.8 cm MD Gypsy Mcmahon Work Phone: [facility] 05-21-2023 09:54-0400 Body mass index (BMI) [Ratio] 18.6 kg/m2 MD Gypsy Mcmahon Work Phone: [facility] 05-21-2023 09:54-0400 Body weight 58.96 kg MD Gypsy Mcmahon Work Phone: [facility] 05-05-2023 16:40-0400 Diastolic blood pressure 71 mm[Hg] MD Jacinto Max Work Phone: [facility] 05-05-2023 16:40-0400 Systolic blood pressure 170 mm[Hg] MD Jacinto Max Work Phone: [facility] 05-05-2023 16:36-0400 Body height 177.8 cm MD Jacinto Max Work Phone: [facility] 05-05-2023 16:36-0400 Body temperature 98.1 [degF] MD Jacinto Max Work Phone: [facility] 05-05-2023 16:36-0400 Body weight 59.87 kg MD Jacinto Max Work Phone: [facility] 05-05-2023 16:36-0400 Heart rate 71 /min MD Jacinto Max Work Phone: [facility] 05-05-2023 16:36-0400 Respiratory rate 18 /min MD Jacinto Max Work Phone: [facility] 05-05-2023 16:36-0400 SaO2% (BldA) [Mass fraction] 98 % MD Jacinto Max Work Phone: [facility] 04-15-2023 13:30-0500 Body height 167.64 cm MD Jacinto Max Work Phone: [facility] [facility] 04-15-2023 13:30-0500 Body mass index (BMI) [Ratio] 20.8 kg/m2 MD Jacinto Max Work Phone: [facility] 04-15-2023 13:30-0500 Body temperature 97.2 [degF] MD Jacinto Max Work Phone: [facility] 04-15-2023 13:30-0500 Body weight 58.57 kg MD Jacinto Max Work Phone: [facility] 04-15-2023 13:30-0500 Diastolic blood pressure 75 mm[Hg] MD Jacinto Max Work Phone: [facility] 04-15-2023 13:30-0500 Heart rate 60 /min MD Jacinto Max Work Phone: [facility] 04-15-2023 13:30-0500 Systolic blood pressure 165 mm[Hg] MD Jacinto Max Work Phone: [facility] 02-26-2023 10:00-0500 Body height 167.64 cm MD Jacinto Max Work Phone: [facility] 02-26-2023 10:00-0500 Diastolic blood pressure 76 mm[Hg] MD Jacinto Max Work Phone: [facility] 02-26-2023 10:00-0500 Systolic blood pressure 156 mm[Hg] MD Jacinto Max Work Phone: [facility] 02-25-2023 10:15-0500 Body height 175.26 cm MD Jacinto Max Work Phone: [facility] 02-25-2023 10:15-0500 Body weight 59.1 kg MD Jacinto Max Work Phone: [facility] 02-25-2023 10:02-0500 Diastolic blood pressure 74 mm[Hg] MD Jacinto Max Work Phone: [facility] 02-25-2023 10:02-0500 Heart rate 67 /min MD Jacinto Max Work Phone: [facility] 02-25-2023 10:02-0500 Systolic blood pressure 157 mm[Hg] MD Jacinto Max Work Phone: [facility] 02-18-2023 14:00-0500 Body height 167.64 cm Jacinto Max Other [facility] 02-18-2023 14:00-0500 Body mass index (BMI) [Ratio] 20.66 kg/m2 Jacinto Max Other [facility] [employer] Other 02-18-2023 14:00-0500 Body temperature 97.2 [degF] Jacinto Max Other [employer] Other 02-18-2023 14:00-0500 Body weight 58.06 kg Jacinto Max Other [employer] Other 02-18-2023 14:00-0500 Body weight 58.05 kg MD Jacinto Max Work Phone: [facility] 02-18-2023 14:00-0500 Diastolic blood pressure 66 mm[Hg] Jacinto Max Other [facility] 02-18-2023 14:00-0500 Systolic blood pressure 150 mm[Hg] Jacinto Max Other [facility] 02-16-2023 13:30-0500 Body height 167.64 cm Gypsy Mcmahon Other [facility] 02-16-2023 13:30-0500 Body mass index (BMI) [Ratio] 20.66 kg/m2 Gypsy Mcmahon Other [facility] [employer] Other 02-16-2023 13:30-0500 Body weight 58.06 kg Gypsy Mcmahon Other [facility] [employer] Other 02-16-2023 13:30-0500 Body weight 58.05 kg MD Jacinto Max Work Phone: [facility] 02-16-2023 13:30-0500 Diastolic blood pressure 68 mm[Hg] Gypsy Mcmahon Other [facility] 02-16-2023 13:30-0500 SaO2% (BldA) [Mass fraction] 96 % Gypsy Mcmahon Other [facility] [employer] Other 02-16-2023 13:30-0500 Systolic blood pressure 140 mm[Hg] Gypsy Mcmahon Other [facility] 02-04-2023 09:09-0500 Heart rate 84 /min MALATHI DEB [facility] 02-04-2023 09:09-0500 SaO2% (BldA) [Mass fraction] 95 % MALATHI DEB [facility] 02-04-2023 09:08-0500 Diastolic blood pressure 88 mm[Hg] MALATHI DEB [facility] 02-04-2023 09:08-0500 Mean blood pressure 121 mm[Hg] MALATHI DEB [facility] 02-04-2023 09:08-0500 Systolic blood pressure 188 mm[Hg] MALATHI DEB [facility] 02-04-2023 09:08-0500 Respiratory rate 20 /min MALATHI DEB [facility] 02-04-2023 09:08-0500 Body temperature 97.7 [degF] MALATHI DEB [facility] 02-03-2023 09:15-0500 Heart rate 77 /min MALATHI DEB [facility] 02-03-2023 09:15-0500 SaO2% (BldA) [Mass fraction] 97 % MALATHI DEB [facility] 02-03-2023 09:14-0500 Respiratory rate 18 /min MALATHI DEB [facility] 02-03-2023 09:14-0500 Diastolic blood pressure 97 mm[Hg] MALATHI DEB [facility] 02-03-2023 09:14-0500 Mean blood pressure 130 mm[Hg] MALATHI DEB [facility] 02-03-2023 09:14-0500 Systolic blood pressure 197 mm[Hg] MALATHI DEB [facility] 02-03-2023 09:13-0500 Body temperature 98.06 [degF] MALATHI DEB [facility] 02-02-2023 09:10-0500 Heart rate 75 /min MALATHI DEB [facility] 02-02-2023 09:10-0500 SaO2% (BldA) [Mass fraction] 93 % MALATHI DEB [facility] 02-02-2023 09:09-0500 Respiratory rate 20 /min MALATHI DEB [facility] 02-02-2023 09:08-0500 Diastolic blood pressure 87 mm[Hg] MALATHI DEB [facility] 02-02-2023 09:08-0500 Mean blood pressure 123 mm[Hg] MALATHI DEB [facility] 02-02-2023 09:08-0500 Systolic blood pressure 194 mm[Hg] MALATHI DEB [facility] 02-02-2023 09:08-0500 Body temperature 97.7 [degF] MALATHI DEB [facility] 02-01-2023 09:50-0500 Heart rate 77 /min MALATHI DEB [facility] 02-01-2023 09:50-0500 Mean blood pressure 115 mm[Hg] MALATHI DEB [facility] 02-01-2023 09:10-0500 Heart rate 84 /min MALATHI DEB [facility] 01-29-2023 11:26-0500 Heart rate 75 /min MALATHI DEB [facility] 01-29-2023 11:26-0500 SaO2% (BldA) [Mass fraction] 95 % MALATHI DEB [facility] 01-29-2023 11:26-0500 Respiratory rate 16 /min MALATHI DEB [facility] 01-29-2023 11:25-0500 Diastolic blood pressure 83 mm[Hg] MALATHI DEB [facility] 01-29-2023 11:25-0500 Mean blood pressure 108 mm[Hg] MALATHI DEB [facility] 01-29-2023 11:25-0500 Systolic blood pressure 158 mm[Hg] MALATHI DEB [facility] 01-29-2023 11:25-0500 Body temperature 98.06 [degF] MALATHI DEB [facility] 01-29-2023 10:54-0500 Heart rate 74 /min MALATHI DEB [facility] 01-29-2023 10:54-0500 SaO2% (BldA) [Mass fraction] 97 % MALATHI DEB [facility] 01-29-2023 10:54-0500 Respiratory rate 16 /min MALATHI DEB [facility] 01-29-2023 10:53-0500 Body temperature 97.52 [degF] MALATHI DEB [facility] 01-29-2023 10:53-0500 Diastolic blood pressure 84 mm[Hg] MALATHI DEB [facility] 01-29-2023 10:53-0500 Mean blood pressure 104 mm[Hg] MALATHI DEB [facility] 01-29-2023 10:53-0500 Systolic blood pressure 146 mm[Hg] MALATHI DEB [facility] 01-12-2023 13:30-0500 Body height 167.64 cm Hunter Brown Other [employer] Other 01-12-2023 13:30-0500 Body mass index (BMI) [Ratio] 22 kg/m2 Hunter Brown Other [employer] Other 01-12-2023 13:30-0500 Body weight 61.83 kg Hunter Brown Other [employer] Other 01-12-2023 13:30-0500 Diastolic blood pressure 60 mm[Hg] Hunter Brown Other [employer] Other 01-12-2023 13:30-0500 Systolic blood pressure 137 mm[Hg] Hunter Brown Other [employer] Other 01-05-2023 11:30-0500 Body height 167.64 cm Gypsy Mcmahon Other [employer] Other 01-05-2023 11:30-0500 Body mass index (BMI) [Ratio] 21.63 kg/m2 Gypsy Mcmahon Other [employer] Other 01-05-2023 11:30-0500 Body weight 60.78 kg Gypsy Mcmahon Other [employer] Other 01-05-2023 11:30-0500 Diastolic blood pressure 72 mm[Hg] Gypsy Mcmahon Other [employer] Other 01-05-2023 11:30-0500 Systolic blood pressure 162 mm[Hg] Gypsy Mcmahon Other [employer] Other 12-28-2022 13:30-0500 Body height 167.64 cm Malathi Velázquez Other [employer] Other 12-28-2022 13:30-0500 Body mass index (BMI) [Ratio] 19.98 kg/m2 Malathi Velázquez Other [employer] Other 12-28-2022 13:30-0500 Body weight 56.16 kg Malathi Velázquez Other [employer] Other 12-28-2022 13:30-0500 Diastolic blood pressure 78 mm[Hg] Malathi Velázquez Other [employer] Other 12-28-2022 13:30-0500 Systolic blood pressure 146 mm[Hg] Malathi Velázquez Other [employer] Other 12-15-2022 11:15-0500 Body height 167.64 cm Gypsy Mcmahon Other [employer] Other 12-15-2022 11:15-0500 Body mass index (BMI) [Ratio] 21.53 kg/m2 Gypsy Mcmahon Other [employer] Other 12-15-2022 11:15-0500 Body weight 60.51 kg Gypsy Mcmahon Other [employer] Other 12-15-2022 11:15-0500 Diastolic blood pressure 73 mm[Hg] Gypsy Mcmahon Other [employer] Other 12-15-2022 11:15-0500 Systolic blood pressure 178 mm[Hg] Gypsy Mcmahon Other [employer] Other 09-22-2022 14:14-0400 Blood Pressure Location MALATHI VIEIRA [facility] 09-22-2022 14:14-0400 Diastolic blood pressure 90 mm[Hg] MALATHI VIEIRA [facility] 09-22-2022 14:14-0400 Heart rate 78 /min MALATHI VIEIRA [facility] 09-22-2022 14:14-0400 Systolic blood pressure 142 mm[Hg] MALATHI VIEIRA [facility] 09-01-2022 14:15-0400 Body height 167.64 cm Gypsy Mcmahon Other [employer] Other 09-01-2022 14:15-0400 Body mass index (BMI) [Ratio] 21.14 kg/m2 Gypsy Mcmahon Other [employer] Other 09-01-2022 14:15-0400 Body weight 59.42 kg Gypsy Mcmahon Other [employer] Other 09-01-2022 14:15-0400 Diastolic blood pressure 56 mm[Hg] Gypsy Mcmahon Other [employer] Other 09-01-2022 14:15-0400 Systolic blood pressure 132 mm[Hg] Gypsy Mcmahon Other [employer] Other 06-09-2022 13:42-0400 Diastolic blood pressure 71 mm[Hg] Marvin KWON [facility] 06-09-2022 13:42-0400 Heart rate 59 /min Marvin KWON [facility] 06-09-2022 13:42-0400 Systolic blood pressure 183 mm[Hg] Marvin KWON [facility] 04-24-2022 11:30-0400 Body height 167.64 cm Hunter Brown Other [employer] Other 04-24-2022 11:30-0400 Body mass index (BMI) [Ratio] 22.11 kg/m2 Hunter Brown Other [employer] Other 04-24-2022 11:30-0400 Body weight 62.14 kg Hunter Brown Other [employer] Other 04-24-2022 11:30-0400 Diastolic blood pressure 70 mm[Hg] Hunter Brown Other [employer] Other 04-24-2022 11:30-0400 Systolic blood pressure 159 mm[Hg] Hunter Brown Other [employer] Other 04-07-2022 14:15-0500 Body height 167.64 cm Gypsy Mcmahon Other [employer] Other 04-07-2022 14:15-0500 Body mass index (BMI) [Ratio] 21.79 kg/m2 Gypsy Mcmahon Other [employer] Other 04-07-2022 14:15-0500 Body weight 61.24 kg Gypsy Mcmahon Other [employer] Other 04-07-2022 14:15-0500 Diastolic blood pressure 62 mm[Hg] Gypsy Mcmahon Other [employer] Other 04-07-2022 14:15-0500 Systolic blood pressure 130 mm[Hg] Gypsy Mcmahon Other [employer] Other 03-11-2022 13:35-0500 Body temperature 97.5 [degF] MD Gypsy Mcmahon Work Phone: [facility] 03-11-2022 13:35-0500 Diastolic blood pressure 61 mm[Hg] MD Gypsy Mcmahon Work Phone: [facility] 03-11-2022 13:35-0500 Heart rate 60 /min MD Gypsy Mcmahon Work Phone: [facility] 03-11-2022 13:35-0500 Respiratory rate 18 /min MD Gypsy Mcmahon Work Phone: [facility] 03-11-2022 13:35-0500 SaO2% (BldA) [Mass fraction] 96 % MD Gypsy Mcmahon Work Phone: [facility] 03-11-2022 13:35-0500 Systolic blood pressure 135 mm[Hg] MD Gypsy Mcmahon Work Phone: [facility] 02-16-2022 10:45-0500 Body height 167.64 cm Gypsy Mcmahon Other [facility] [employer] Other 02-16-2022 10:45-0500 Body mass index (BMI) [Ratio] 21.46 kg/m2 Gypsy Mcmahon Other [facility] [employer] Other 02-16-2022 10:45-0500 Body weight 60.33 kg Gypsy Mcmahon Other [facility] [employer] Other 02-16-2022 10:45-0500 Diastolic blood pressure 70 mm[Hg] Gypsy Mcmahon Other [facility] [employer] Other 02-16-2022 10:45-0500 Systolic blood pressure 120 mm[Hg] Gypsy Mcmahon Other [facility] [employer] Other 02-11-2022 12:00-0500 Body height 172.72 cm Hunter Brown Other [employer] Other 02-11-2022 12:00-0500 Body mass index (BMI) [Ratio] 20.83 kg/m2 Hunter Brown Other [employer] Other 02-11-2022 12:00-0500 Body weight 62.14 kg Hunter Brown Other [employer] Other 02-11-2022 12:00-0500 Diastolic blood pressure 68 mm[Hg] Hunter Brown Other [employer] Other 02-11-2022 12:00-0500 Systolic blood pressure 144 mm[Hg] Hunter Brown Other [employer] Other 01-05-2022 10:30-0500 Body height 172.72 cm Hunter Brown Other [employer] Other 01-05-2022 10:30-0500 Body mass index (BMI) [Ratio] 22.04 kg/m2 Hunter Brown Other [employer] Other 01-05-2022 10:30-0500 Body weight 65.77 kg Hunter Brown Other [employer] Other 01-05-2022 10:30-0500 Diastolic blood pressure 78 mm[Hg] Hunter Brown Other [employer] Other 01-05-2022 10:30-0500 Systolic blood pressure 166 mm[Hg] Hunter Brown Other [employer] Other 03-27-2021 12:00-0500 Body height 172.72 cm Giana Villar Other [employer] Other 03-27-2021 12:00-0500 Body mass index (BMI) [Ratio] 22.96 kg/m2 Giana Villar Other [employer] Other 03-27-2021 12:00-0500 Body weight 68.49 kg Giana Villar Other [employer] Other 01-27-2021 10:45-0500 Body height 172.72 cm Giana Villar Other [employer] Other 01-27-2021 10:45-0500 Body mass index (BMI) [Ratio] 24.48 kg/m2 Giana Villar Other [employer] Other 01-27-2021 10:45-0500 Body weight 73.03 kg Giana Villar Other [employer] Other Encounters Encounter Date Encounter Type Care Provider Facility Start: 07-27-2024 End: 07-27-2024 Office outpatient visit 25 minutes Derrek Kirkland MD Work Phone: [facility] Comment on above: PAD (peripheral jhonatan ry disease) (Primary Dx) Start: 07-27-2024 End: 07-27-2024 ambulatory [facility] Start: 07-26-2024 End: 07-28-2024 ambulatory [facility] Start: 07-25-2024 End: 07-25-2024 ambulatory Gypsy Mcmahon Facility:[facility] Start: 07-20-2024 End: 07-20-2024 ambulatory [facility] Start: 07-13-2024 End: 07-13-2024 ambulatory Gypsy Mcmahon MD Work Phone: [facility] Work Phone: Start: 07-13-2024 End: 07-13-2024 Patient encounter procedure Gypsy Mcmahon MD Work Phone: [facility] Work Phone: Start: 07-10-2024 Non-patient / Non-visit Gypsy Mcmahon MD Work Phone: [facility] Work Phone: Start: 07-07-2024 End: 07-07-2024 ambulatory Gypsy Mcmahon MD Work Phone: [facility] Work Phone: Start: 07-07-2024 End: 07-07-2024 Departed Referred Gypsy Mcmahon MD Work Phone: [facility] Start: 07-07-2024 Non-patient / Non-visit Gypsy Mcmahon MD Work Phone: [facility] Work Phone: Start: 06-07-2024 Non-patient / Non-visit Gypsy Mcmahon MD Work Phone: [facility] Work Phone: Start: 06-05-2024 Non-patient / Non-visit Gypsy Mcmahon MD Work Phone: [facility] [place] Work Phone: Start: 05-25-2024 End: 05-25-2024 Patient encounter procedure Gypsy Mcmahon MD Work Phone: [facility] Work Phone: Start: 05-22-2024 End: 05-22-2024 ambulatory Gypsy Mcmahon MD Work Phone: [facility] Work Phone: Start: 05-22-2024 End: 05-22-2024 Patient encounter procedure Gypsy Mcmahon MD Work Phone: [facility] Work Phone: Start: 05-17-2024 End: 05-17-2024 Postop follow up visit related to original px Tyrese Girard MD Work Phone: [facility] Comment on above: Status post small ned wel resection (Primary Dx); Ischemic enteritis (CMS/HCC) Start: 05-17-2024 End: 05-17-2024 ambulatory TYRESE GIRARD V Not Available Start: 05-08-2024 Non-patient / Non-visit Gypsy Mcmahon MD Work Phone: [facility] Work Phone: Start: 05-03-2024 Non-patient / Non-visit Gypsy Mcmahon MD Work Phone: [facility] Work Phone: Start: 04-28-2024 End: 05-05-2024 Evaluation and management of inpatient Gypsy Mcmahon MD Work Phone: [facility] [facility] Work Phone: Start: 04-28-2024 Non-patient / Non-visit Gypsy Mcmahon MD Work Phone: [facility] Work Phone: Start: 04-27-2024 Non-patient / Non-visit Gypsy Mcmahon MD Work Phone: [facility] Work Phone: Start: 04-26-2024 Non-patient / Non-visit Gypsy Mcmahon MD Work Phone: [facility] Work Phone: Start: 04-25-2024 Non-patient / Non-visit Veronique Bernard PA-C Work Phone: [facility] Work Phone: Start: 04-24-2024 End: 04-24-2024 ambulatory Lila Bernard [facility] Work Phone: Start: 04-24-2024 End: 04-24-2024 Departed Referred Lila Bernard PA-C Work Phone: [facility] Start: 04-24-2024 Non-patient / Non-visit Veronique Bernard PA-C Work Phone: [facility] Work Phone: Start: 04-13-2024 End: 04-13-2024 ambulatory [facility] Work Phone: Start: 04-13-2024 End: 04-13-2024 Patient encounter procedure [facility] Work Phone: Start: 04-10-2024 Non-patient / Non-visit [facility] Work Phone: Start: 04-09-2024 Non-patient / Non-visit Gypsy Mcmahon MD Work Phone: [facility] Work Phone: Start: 04-08-2024 End: 04-08-2024 ambulatory Clementina Madera Facility:[facility] Start: 04-08-2024 Non-patient / Non-visit [facility] Work Phone: Start: 04-07-2024 Non-patient / Non-visit [facility] Work Phone: Start: 03-23-2024 End: 04-05-2024 Telephone encounter Derrek Kirkland MD Work Phone: [facility] Start: 03-23-2024 End: 03-23-2024 ambulatory [facility] Work Phone: Start: 03-23-2024 End: 03-23-2024 Patient encounter procedure [facility] Work Phone: Start: 03-02-2024 End: 03-02-2024 [facility] Start: 02-28-2024 End: 02-28-2024 Office outpatient visit 25 minutes Wily Ingram NP Work Phone: [facility] Comment on above: Primary osteoarthrit is of left knee (Primary Dx); Left knee pain, unspecified chronicity; Olecranon bursitis, right elbow Start: 02-28-2024 End: 02-28-2024 ambulatory WILY INGRAM Not Available Start: 02-28-2024 End: 02-28-2024 Bamboo flowsheet Wily Ingram ENERGY EFFICIENCY SPECIALIST Work Phone: [facility] Start: 02-28-2024 End: 02-28-2024 Bamboo flowsheet Wily Ingram ENERGY EFFICIENCY SPECIALIST Work Phone: [facility] Start: 02-24-2024 End: 02-24-2024 Office outpatient visit 25 minutes Derrek Kirkland MD Work Phone: [facility] Comment on above: 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 Start: 01-10-2024 Non-patient / Non-visit [facility] Work Phone: Start: 01-08-2024 End: 01-08-2024 Evaluation and management of inpatient GYPSY MCMAHON [facility] Start: 01-04-2024 End: 01-08-2024 Evaluation and management of inpatient ARNIE SMITH [facility] Start: 01-01-2024 End: 01-08-2024 Evaluation and management of inpatient [facility] Start: 01-01-2024 End: 01-07-2024 Evaluation and management of inpatient [facility] Start: 12-31-2023 End: 12-31-2023 Patient encounter procedure Hernan Aldrich Provider 1 Madeline Becerra [facility] Comment on above: Critical limb ischem ia of both lower extremities with rest pain (CMS-HCC) (Primary Dx); 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 Start: 12-24-2023 End: 12-24-2023 Evaluation and management of inpatient [facility] Start: 12-23-2023 End: 12-23-2023 ambulatory [facility] Pat Phone Call Provider 1 [facility] Start: 12-22-2023 End: 12-22-2023 ambulatory [facility] Jean Carlos [facility] Start: 12-15-2023 End: 12-15-2023 Orders Only [facility] Comment on above: Venous ulcer of ankl e, right (CMS-HCC) (Primary Dx) Start: 12-14-2023 End: 12-14-2023 Bamboo flowsheet Wily Ingram ENERGY EFFICIENCY SPECIALIST Work Phone: [facility] Start: 12-14-2023 End: 12-14-2023 Bamboo flowsheet Wily Ingram ENERGY EFFICIENCY SPECIALIST Work Phone: [facility] Start: 12-14-2023 End: 12-14-2023 Office outpatient visit 10 minutes Wily Ingram ENERGY EFFICIENCY SPECIALIST Work Phone: [facility] Comment on above: Trochanteric bursiti s of left hip (Primary Dx); Primary osteoarthritis of left hip; History of left hip replacement Start: 12-14-2023 End: 12-14-2023 ambulatory WILY INGRAM Not Available Start: 12-09-2023 End: 12-09-2023 Office outpatient visit 25 minutes Derrek Kirkland MD Work Phone: [facility] Comment on above: 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); Venous ulcer of ankle, right (CMS-HCC); Critical limb ischemia of both lower extremities with rest pain (CMS-HCC) Start: 11-18-2023 End: 11-19-2023 ambulatory DERREK KIRKLAND [facility] Start: 11-16-2023 End: 11-16-2023 Evaluation and management of inpatient GYPSY Olvera JAI [facility] Start: 11-16-2023 End: 11-16-2023 Admission to Women and [facility] Provider 1 Madeline Becerra [facility] Start: 11-09-2023 End: 11-09-2023 ambulatory [facility] Start: 11-09-2023 End: 11-09-2023 Encounter for other preprocedural examination KYREE FLETCHER [facility] Start: 11-05-2023 End: 11-05-2023 Evaluation and management of inpatient [facility] Start: 10-27-2023 End: 10-27-2023 Evaluation and management of inpatient GYPSY MCMAHON [facility] Start: 10-27-2023 End: 10-27-2023 [facility] Phone Call Provider 3 [facility] Start: 10-27-2023 End: 10-27-2023 ambulatory [facility] Start: 10-20-2023 End: 10-20-2023 ambulatory [facility] Start: 10-14-2023 End: 10-14-2023 Office outpatient visit 40 minutes Derrek Kirkland MD Work Phone: [facility] Comment on above: 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 ([facility]) (Primary Dx); Venous ulcer of right leg ([facility]) Start: 09-01-2023 Patient encounter procedure [facility] Start: 06-17-2023 End: 06-17-2023 Office outpatient visit 25 minutes Derrek Kirkland MD Work Phone: [facility] Comment on above: PAD (peripheral jhonatan ry disease) ([facility]) (Primary Dx) Start: 06-15-2023 End: 06-15-2023 ambulatory MALATHI VIEIRA Facility:[facility] Start: 06-15-2023 End: 06-15-2023 Patient encounter procedure MALATHI VIEIRA [facility] Start: 05-28-2023 End: 05-28-2023 ambulatory MD Gypsy Mcmahon Work Phone: [facility] Work Phone: Start: 05-28-2023 End: 05-28-2023 Patient encounter procedure MD Gypsy Mcmahon Work Phone: [facility]-CT Scan [facility] [place] Work Phone: Start: 05-25-2023 Non-patient / Non-visit MD Dontae Mcmahon Work Phone: [facility] Work Phone: Start: 05-24-2023 End: 05-24-2023 Patient encounter procedure MD Gypsy Mcmahon Work Phone: [facility] Work Phone: Start: 05-21-2023 End: 05-21-2023 Patient encounter procedure MD Gypsy Mcmahon Work Phone: [facility] Gastroenterology Work Phone: Start: 05-06-2023 Non-patient / Non-visit MD Dontae Mcmahon Work Phone: [facility] Work Phone: Start: 05-05-2023 End: 05-05-2023 Emergency department patient visit MD Jacinto Max Work Phone: [facility]-Emergency Room Work Phone: Start: 05-01-2023 Non-patient / Non-visit MD Jody Max Work Phone: [facility] Work Phone: Start: 04-15-2023 End: 04-15-2023 Patient encounter procedure MD Jacinto Max Work Phone: [facility] Work Phone: Start: 04-06-2023 Non-patient / Non-visit MD Jody Max Work Phone: [facility] Work Phone: Start: 03-12-2023 End: 03-12-2023 dewayne Max Other [employer] Other Start: 03-12-2023 Telephone encounter Jacinto BA [facility] Start: 03-11-2023 End: 03-11-2023 ambulatory Jacinto Max Other [employer] Other Start: 03-11-2023 Telephone encounter Jacinto BA [facility] Start: 03-02-2023 End: 03-02-2023 ambulatory Gypsy Mcmahon Other [address] [facility] [employer] Other Start: 03-02-2023 Telephone encounter Gypsy Mcmahon [facility] Start: 02-26-2023 End: 02-26-2023 Patient encounter procedure MD Jacinto Max Work Phone: [facility] Start: 02-25-2023 End: 02-25-2023 ambulatory MD Jacinto Max Work Phone: [facility] Work Phone: Start: 02-25-2023 End: 02-25-2023 Discharged Recurring MD Jacinto Max Work Phone: [facility]-Infusion Therapy - O/P Work Phone: Start: 02-18-2023 End: 02-18-2023 ambulatory Jacinto Max Other [employer] Other Start: 02-18-2023 Office outpatient ne w 45 minutes Jacinto EUGENE [facility] Start: 02-18-2023 End: 02-18-2023 Patient encounter procedure MD Jacinto Max Work Phone: [facility] Infectious Disease Work Phone: Start: 02-16-2023 End: 02-16-2023 ambulatory Gypsy Mcmahon Other [employer] Other Start: 02-16-2023 Office outpatient vi sit 15 minutes Gypsy Mcmahon [facility] Start: 02-16-2023 End: 02-16-2023 Patient encounter procedure MD Jacinto Max Work Phone: [facility] Work Phone: Start: 01-29-2023 End: 05-05-2023 ambulatory MALATHI VIEIRA Facility:[facility] Start: 01-29-2023 End: 01-29-2023 Patient encounter procedure MALATHI VIEIRA [facility] Start: 01-29-2023 End: 05-05-2023 Recurring MALATHI VIEIRA [facility] Start: 01-26-2023 End: 01-26-2023 Patient encounter procedure MALATHI VIEIRA [facility] Start: 01-26-2023 End: 01-26-2023 ambulatory MALATHI VIEIRA [facility] [employer] Other Start: 01-26-2023 Telephone encounter Hunter brady [facility] Start: 01-20-2023 End: 01-20-2023 ambulatory Hunter Brown Other [employer] Other Start: 01-20-2023 Telephone encounter Hunter brady [facility] Start: 01-12-2023 End: 01-12-2023 ambulatory Hunter Brown Other [employer] Other Start: 01-12-2023 Office outpatient vi sit 25 minutes Hunter Brown [facility] Start: 01-12-2023 End: 01-12-2023 Patient encounter procedure MD Jacinto Max Work Phone: [facility] Gastroenterology Work Phone: Start: 01-11-2023 End: 01-11-2023 ambulatory Gypsy Mcmahon Other [employer] Other Start: 01-11-2023 Telephone encounter Gypsy Mcmahon [facility] Start: 01-05-2023 End: 01-05-2023 ambulatory Gypsy Mcmahon Other [employer] Other Start: 01-05-2023 Telephone encounter Gypsy Mcmahon [facility] Start: 01-05-2023 Transitional care manage srvc 14 day discharge Gypsy Mcmahon [facility] Start: 01-05-2023 End: 01-05-2023 Patient encounter procedure MD Jacinto Max Work Phone: [facility] Work Phone: Start: 12-30-2022 End: 12-30-2022 ambulatory Malathi Melania Other [employer] Other Start: 12-30-2022 Telephone encounter Malathi Gera [facility] Start: 12-28-2022 End: 12-28-2022 ambulatory Malathi Velázquez Other [employer] Other Start: 12-28-2022 Office outpatient vi sit 15 minutes Malathi Velázquez [facility] Start: 12-28-2022 End: 12-28-2022 Patient encounter procedure MD Jacinto Max Work Phone: [facility] Work Phone: Start: 12-15-2022 End: 12-15-2022 ambulatory Gypsy Jai Other [employer] Other Start: 12-15-2022 Office outpatient vi sit 15 minutes Gypsy Mcmahon [facility] Start: 12-15-2022 Telephone encounter Gypsy Mcmahon [facility] Start: 12-15-2022 End: 12-15-2022 Patient encounter procedure MD Jacinto Max Work Phone: [facility] Work Phone: Start: 09-22-2022 End: 09-22-2022 ambulatory MALATHI VIEIRA Facility:[facility] Start: 09-22-2022 End: 09-22-2022 Patient encounter procedure MALATHI Wade VIEIRA [facility] Start: 09-10-2022 End: 09-10-2022 ambulatory Jose G Ellington Other [employer] Other Start: 09-10-2022 Nursing evaluation o f patient and report Jose G Ellington [facility] Start: 09-08-2022 End: 09-08-2022 ambulatory Hunter Brown Other [employer] Other Start: 09-08-2022 Telephone encounter Hunter Palomo [facility] Gastroenterology Start: 09-01-2022 End: 09-01-2022 ambulatory Gypsy Mcmahon Other [employer] Other Start: 09-01-2022 Office outpatient vi sit 15 minutes Gypsy Mcmahon [facility] Start: 08-27-2022 End: 08-27-2022 ambulatory Gypsy Mcmahon Other [employer] Other Start: 08-27-2022 Telephone encounter Gypsy Mcmahon [facility] Start: 06-09-2022 End: 06-09-2022 Patient encounter procedure Marvin KWON [facility] Start: 05-27-2022 End: 05-28-2022 ambulatory MALATHI VIEIRA Facility: Start: 05-19-2022 End: 05-19-2022 Patient encounter procedure MALATHI GUERRERORY [facility] Start: 05-14-2022 End: 05-14-2022 ambulatory Gypsy Mcmahon Other [employer] Other Start: 05-14-2022 Telephone encounter Gypsy Mcmahon [facility] Start: 05-11-2022 End: 05-12-[address] GYPSY MCMAHON Facility:[facility] Start: 05-01-2022 (Televisit) Televisit Gypsy Evangelista [facility] Start: 05-01-2022 End: 05-01-2022 ambulatory Gypsy Mcmahon Other [employer] Other Start: 05-01-2022 Telephone encounter Gypsy Mcmahon [facility] Start: 04-28-2022 End: 04-29-[address] GYPSY MCMAHON Facility:[facility] Start: 04-24-2022 End: 04-24-2022 ambulatory Hunter Brown Other [employer] Other Start: 04-24-2022 Office outpatient vi sit 15 minutes Hunter Brown [facility] Gastroenterology Start: 04-16-2022 End: 04-16-2022 ambulatory Gypsy Mcmahon Other [employer] Other Start: 04-16-2022 Telephone encounter Gypsy Mcmahon [facility] Start: 04-14-2022 End: 04-14-[address] GYPSY MCMAHON Facility:[facility] Start: 04-07-2022 End: 04-07-2022 ambulatory Gypsy Mcmahon Other [employer] Other Start: 04-07-2022 Office outpatient vi sit 15 minutes Gypsy Mcmahon [facility] Start: 04-03-2022 End: 04-03-2022 ambulatory Gypsy Mcmahon Other [employer] Other Start: 04-03-2022 Telephone encounter Gypsy Mcmahon [facility] Start: 03-30-2022 End: 03-30-2022 Departed Referred MD Gypsy Mcmahon Work Phone: [facility]-Lab [facility] [place] Work Phone: Start: 03-30-2022 End: 03-30-2022 ambulatory MD Gypsy Mcmahon Work Phone: [facility] Work Phone: Start: 03-30-2022 Nursing evaluation o f patient and report Gypsy Mcmahon [facility] Start: 03-20-2022 End: 03-21-[address] GYPSY MCMAHON Facility:[facility] Start: 03-19-2022 End: 03-19-2022 ambulatory Hunter Brown Other [employer] Other Start: 03-19-2022 Telephone encounter Hunter Palomo [facility] Gastroenterology Start: 03-11-2022 Registered Recurring MD Gypsy Mcmahon Work Phone: [facility]-Infusion Therapy - O/P Work Phone: Start: 02-23-2022 End: 02-24-[address] GYPSY MCMAHON Facility:[facility] Start: 02-19-2022 End: 02-19-2022 ambulatory Gypsy Mcmahon Other [employer] Other Start: 02-19-2022 Telephone encounter Gypsy Mcmahon [facility] Start: 02-17-2022 End: 02-18-[address] GYPSY MCMAHON Facility:[facility] Start: 02-16-2022 End: 02-16-2022 ambulatory Gypsy Mcmahon Other [employer] Other Start: 02-16-2022 Office outpatient vi sit 15 minutes Gypsy Mcmahon [facility] Start: 02-16-2022 End: 02-16-2022 Departed Referred MD Gypsy Mcmahon Work Phone: [facility] [place] Work Phone: Start: 02-11-2022 End: 02-11-2022 ambulatory Hunter Brown Other [employer] Other Start: 02-11-2022 Office outpatient vi sit 15 minutes Hunter Brown [facility] Start: 02-11-2022 Telephone encounter Hunter brady [facility] Start: 01-26-2022 End: 01-27-[address] GYPSY MCMAHON Facility:[facility] Start: 01-15-2022 End: 01-16-[address] GYPSY MCMAHON Facility:[facility] Start: 01-06-2022 End: 01-06-2022 ambulatory Hunter Brown Other [employer] Other Start: 01-06-2022 Telephone encounter Hunter brady [facility] Start: 01-05-2022 End: 01-06-2022 ambulatory CLAU NASCIMENTO [facility] [employer] Other Start: 01-05-2022 Office outpatient vi sit 25 minutes Hunter Brown [facility] Start: 12-27-2021 End: 12-27-[address] REY MONTGOMERY Facility:[facility] Start: 12-18-2021 End: 12-19-2021 ambulatory CLAU NASCIMENTO Facility:[facility] Start: 12-08-2021 End: 12-09-[address] GYPSY MCMAHON Facility:[facility] Start: 11-18-2021 End: 11-18-2021 ambulatory Hunter Brown Other [employer] Other Start: 11-18-2021 Telephone encounter Hunter brady [facility] Start: 11-17-2021 End: 11-18-[address] GYPSY MCMAHON Facility:[facility] Start: 11-10-2021 End: 11-11-[address] GYPSY MCMAHNO Facility:[facility] Start: 11-02-2021 End: 11-04-2021 ambulatory SHAIKH Nasreen CHAPMAN Facility:[facility] Start: 10-31-2021 End: 11-01-[address] GYPSY MCMAHON Facility:[facility] Start: 10-27-2021 End: 10-28-2021 ambulatory CLAU NASCIMENTO Facility:[facility] Start: 10-16-2021 End: 10-16-[address] REY MONTGOMERY Facility:[facility] Start: 10-16-2021 End: 10-17-[address] GYPSY MCMAHON Facility:[facility] Start: 08-18-2021 End: 08-18-2021 ambulatory Giana Villar Other [employer] Other Start: 08-18-2021 Telephone encounter Giana Villar [facility] Start: 08-12-2021 End: 08-12-[address] GYPSY MCMAHON Facility:[facility] Start: 04-22-2021 End: 04-22-2021 ambulatory Giana Villar Other [employer] Other Start: 04-22-2021 Telephone encounter Giana Rhoadesluis [facility] Start: 03-27-2021 End: 03-27-2021 ambulatory Giana Villar Other [employer] Other Start: 03-27-2021 Office outpatient vi sit 25 minutes Giana Rhoadeskes [facility] Start: 01-27-2021 End: 01-27-2021 ambulatory Giana Villar Other [employer] Other Start: 01-27-2021 Office outpatient vi sit 25 minutes Giana Villar [facility] Start: 01-27-2021 Telephone encounter Giana Rhoadesluis [facility] Procedures Date Procedure Procedure Detail Performing Clinician Start: 07-07-2024 Urine culture Gypsy ware MD Work Phone: Start: 04-29-2024 Aerobic microbial culture Gypsy Mcmahon MD Work Phone: Start: 04-29-2024 Anaerobic microbial culture Gypsy Mcmahon MD Work Phone: Start: 04-29-2024 Gram stain microscopy Bc Mcmahon MD Work Phone: Start: 04-29-2024 Plain X-ray abdomen Dontae Mcmahon MD Work Phone: Start: 04-28-2024 Bacteria identified in Blood by Culture Gypsy Mcmahon MD Work Phone: Start: 04-28-2024 Plain X-ray abdomen Dontae Mcmahon MD Work Phone: Start: 04-24-2024 Urine culture Gypsy ware MD Work Phone: Start: 02-28-2024 Arthrocentesis aspir &/inj major jt/bursa w/o us Wily Ingram ENERGY EFFICIENCY SPECIALIST Work Phone: Start: 02-28-2024 Radiologic examinati on knee 1/2 views Wily Ingram ENERGY EFFICIENCY SPECIALIST Work Phone: Start: 01-07-2024 Basic metabolic pane l calcium total Konstantin Stout MD Work Phone: Start: 01-06-2024 Basic metabolic pane l calcium total Konstantin Stout MD Work Phone: Start: 01-05-2024 Basic metabolic pane l calcium total Konstantin Stout MD Work Phone: Start: 01-05-2024 Gluc bld gluc mntr d ev cleared fda spec home use Derrek Kirkland MD Work Phone: Start: 01-04-2024 Gluc bld gluc mntr d ev cleared fda spec home use Derrek Kirkland MD Work Phone: Start: 01-04-2024 Ct abdomen & pelvis w/o contrast material Arnie Smith MD Work Phone: Start: 01-04-2024 Gluc bld gluc mntr d ev cleared fda spec home use Derrek Kirkland MD Work Phone: Start: 01-04-2024 End: 01-04-2024 Potassium serum plasma/whole blood Aroldo Burns RIVETING MACHINE OPERATOR AUTOMATIC-POLE SHAVER HELPER Work Phone: Start: 01-04-2024 End: 01-04-2024 Culture bacterial blood aerobic w/id isolates Arnie Smith MD Work Phone: Start: 01-04-2024 Gluc bld gluc mntr d ev cleared fda spec home use Derrek Kirkland MD Work Phone: Start: 01-04-2024 Ecg routine ecg w/le ast 12 lds trcg only w/o i&r Ten La MD Work Phone: Start: 01-04-2024 Gluc bld gluc mntr d ev cleared fda spec home use Derrek Kirkland MD Work Phone: Start: 01-04-2024 Basic metabolic pane l calcium total Konstantin Stout MD Work Phone: Start: 01-03-2024 Gluc bld gluc mntr d ev cleared fda spec home use Derrek Kirkland MD Work Phone: Start: 01-03-2024 Gluc bld gluc mntr d ev cleared fda spec home use Derrek Kirkland MD Work Phone: Start: 01-03-2024 Culture bacterial qu anttative colony count urine Anu S Tha PA Work Phone: Start: 01-03-2024 Potassium serum plas ma/whole blood Aroldo Burns RIVETING MACHINE OPERATOR AUTOMATIC-POLE SHAVER HELPER Work Phone: Start: 01-03-2024 Gluc bld gluc mntr d ev cleared fda spec home use Derrek Kirkland MD Work Phone: Start: 01-03-2024 Gluc bld gluc mntr d ev cleared fda spec home use Derrek Kirkland MD Work Phone: Start: 01-03-2024 Basic metabolic pane l calcium total Konstantin Stout MD Work Phone: Start: 01-02-2024 End: 01-02-2024 Basic metabolic panel calcium total Konstantin Stout MD Work Phone: Start: 01-02-2024 Assay of magnesium Michael gigi Hernandez MD Work Phone: Start: 01-01-2024 Basic metabolic pane l calcium total Konstantin Stout MD Work Phone: Start: 01-01-2024 RESP ARTERIAL LINE SETUP Derrek Kirkland MD Work Phone: Start: 01-01-2024 Fluoroscopy up to 1 hour physician/qhp time Derrek Kirkland MD Work Phone: Start: 01-01-2024 End: 01-01-2024 TRANSFUSE RED BLOOD CELLS Emerson morin MD Work Phone: Start: 01-01-2024 Calcium ionized Derrek Kirkland MD Work Phone: Start: 01-01-2024 End: 01-01-2024 ENDARTERECTOMY FEMORAL Derrek Shrestha Work Phone: Start: 01-01-2024 End: 01-01-2024 Revascularization iliac artery angiop 1st vsl Derrek Kirkland MD Work Phone: Start: 12-31-2023 Antibody screen [facility] Start: 12-31-2023 Basic metabolic pane l calcium total Derrek Kirkland MD Work Phone: Start: 12-31-2023 Blood typing serologic abo Derrek Kirkland MD Work Phone: Start: 12-31-2023 Urnls dip stick/tabl et rgnt auto w/o microscopy Derrek Kirkland MD Work Phone: Start: 12-30-2023 Follow-up visit Follow-up DERREK KIRKLAND Start: 12-14-2023 Radex hip unilateral with pelvis 2-3 views Wily Ingram NP Work Phone: Start: 11-18-2023 Adult depression scr eening assessment Derrek Kirkland MD Work Phone: Start: 05-28-2023 Computed [...] Treatment Date Care Activity Detail Author Start: 01-25-2025 End: 01-25-2025 Patient encounter procedure 01/25/2025 11:00 AM EST Office Visit [facility] [address] [place] [phone] Derrek Kirkland MD [address], [address] [address] [facility] Start: 12-31-2024 Tobacco Screening Tobacco Screening [facility] Start: 12-23-2024 Tobacco Screening Tobacco Screening [facility] Start: 11-18-2024 Adult BMI Screening Adult BMI Screening [facility] Start: 11-17-2024 Depression Screening Depression Screening [facility] Start: 11-17-2024 Tobacco Screening Tobacco Screening [facility] Start: 11-15-2024 Adult BMI Screening Adult BMI Screening [facility] Start: 11-15-2024 Tobacco Screening Tobacco Screening [facility] Start: 10-26-2024 Adult BMI Screening Adult BMI Screening [facility] Start: 10-26-2024 Tobacco Screening Tobacco Screening [facility] Start: 10-09-2024 Influenza vaccination Influenza Vaccine [facility] Start: 08-31-2024 End: 08-31-2024 Patient encounter procedure 08/31/2024 9:20 AM EDT Office Visit [facility] [address] [place] [phone] Derrek Kirkland MD [address], [address] [address] [facility] Start: 08-18-2024 End: 08-18-2024 Patient encounter procedure [facility] Start: 07-07-2024 Bacteria identified in Urine by Culture Urine Culture [facility] Start: 07-07-2024 Urine culture [facility] Start: 06-29-2024 End: 06-29-2024 Patient encounter procedure [facility] Start: 06-16-2024 Adult BMI Screening Adult BMI Screening [facility] Start: 06-16-2024 Tobacco Screening Tobacco Screening [facility] Start: 05-23-2024 COVID-19 Vaccine ( season) COVID-19 Vaccine () [facility] Start: 05-05-2024 [facility] Start: 05-03-2024 Referral to rehabilitation physician [facility] Start: 04-28-2024 Referral to general surgeon [facility] Start: 04-28-2024 Hospital admission [facility] Start: 04-28-2024 Drainage of Peritoneal Cavity, Open Approach Drainage of Peritoneal Cavity, Open Approach [facility] Start: 04-28-2024 Excision of Small Intestine, Open Approach Excision of Small Intestine, Open Approach [facility] Start: 04-28-2024 Removal of Synthetic Substitute from Abdominal Wall, Open Approach Removal of Synthetic Substitute from Abdominal Wall, Open Approach [facility] Start: 04-24-2024 Urine culture [facility] Start: 04-24-2024 Bacteria identified in Urine by Culture Urine Culture [facility] Start: 04-08-2024 Urine culture [facility] Start: 03-30-2024 End: 03-30-2024 Patient encounter procedure 03/30/2024 1:30 PM EST Office Visit [facility] [address] [place] [phone] Wily Ingram, ENERGY EFFICIENCY SPECIALIST [address] [place] [address] [facility] Start: 02-28-2024 End: 02-28-2024 Patient encounter procedure 02/28/2024 2:45 PM EST Office Visit [facility] [address] [place] [phone] Wily Ingram, ENERGY EFFICIENCY SPECIALIST [address] [place] [address] Left knee pain, unspecified chronicity [facility] Comment on above: Left knee pain, unspecified chronicity Start: 02-24-2024 End: 02-23-2025 US.doppler Extremity arteries - bilateral for physiologic artery study Vas art doppler lwr bilat mult lev/PVR Vascular Ultrasound Routine 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) Critical limb ischemia of left lower extremity with rest pain (CMS-HCC) Expected: 02/24/2024, Expires: 02/23/2025 [facility] Work Phone: Comment on above: Expected: 02/24/2024, Expires: Start: 02-24-2024 End: 02-23-2025 US.doppler Lower extremity artery - bilateral Vas art duplex lwr graft scan bilat Vascular Ultrasound Routine 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) Critical limb ischemia of left lower extremity with rest pain ([facility]-HCC) Expected: 02/24/2024, Expires: 02/23/2025 [facility] Comment on above: Expected: 02/24/2024, Expires: Start: 01-20-2024 End: 01-20-2024 Patient encounter procedure 01/20/2024 10:10 AM EST [facility] [address] [place] [phone] Derrek Kirkland MD [address], [facility] [address] [place] [address] [facility] Start: 01-17-2024 End: 01-17-2024 Patient encounter procedure 01/17/2024 1:00 PM EST Office Visit [facility] [address] [place] [phone] Wily Ingram, ENERGY EFFICIENCY SPECIALIST [address] [place] [address] [facility] Start: 01-01-2024 End: 01-01-2024 Admission to same day surgery center 01/01/2024 12:00 PM EST - 01/01/2024 6:00 PM EST Surgery [facility] [address] [place] [address] Derrek Kirkland MD [address], [address] [address] ENDARTERECTOMY FEMORAL (ILIOFEMORAL ENDARTERECTOMY) [facility] Comment on above: ENDARTERECTOMY FEMORAL (ILIOFEMORAL ENDA RTERECTOMY) Start: 01-01-2024 End: 01-01-2024 ENDARTERECTOMY FEMORAL [facility] Start: 01-01-2024 End: 01-01-2024 Revascularization iliac artery angiop 1st vsl TT SPECIAL PROC Start: 01-01-2024 Subsequent hospital visit by physician 01/01/2024 12:00 PM EST Hospital Encounter [facility] Special Procedures [address] [place] [address] Derrek Kirkland MD [address], [address] [address] [facility] Start: 12-31-2023 End: 12-31-2023 Patient encounter procedure 12/31/2023 8:30 AM EST Procedure visit [facility] On [address] [address] [facility] On [facility] Start: 12-30-2023 End: 12-30-2023 Patient encounter procedure 12/30/2023 1:10 PM EST Office Visit [facility] [place] [address] Derrek Kirkland MD [address], [address] [address] [facility] Start: 12-29-2023 End: 12-29-2023 Patient encounter procedure 12/29/2023 10:00 AM EST Appointment [facility] [address] [place] [phone] Derrek Kirkland MD [address], [address] [address] [facility] Start: 12-24-2023 End: 12-24-2023 ABLATION VENOUS RADIOFREQUENCY [facility] Start: 12-24-2023 End: 12-24-2023 Admission to same day surgery center 12/24/2023 2:00 PM EST - 12/24/2023 3:30 PM EST Surgery [facility] [address] [place] [phone] Derrek Kirkland MD [address], [address] [place] [address] ABLATION VENOUS RADIOFREQUENCY-GREATER SAPHENOUS VEIN [facility] Comment on above: ABLATION VENOUS RADIOFREQUENCY-GREATER S APHENOUS VEIN Start: 12-24-2023 End: 12-24-2023 SCLEROTHERAPY LOWER EXTREMITY [facility] Start: 12-24-2023 Subsequent hospital visit by physician 12/24/2023 2:00 PM EST Hospital Encounter [facility] [address] [place] [address] Derrek Kirkland MD [address], [address] [address] [facility] Start: 12-23-2023 End: 12-23-2023 ambulatory 12/23/2023 3:00 PM EST Support Visit [facility] - Pre Admit [address] [place] [address] [facility] Start: 12-22-2023 End: 12-22-2023 Patient encounter procedure 12/22/2023 3:45 PM EST Appointment [facility] [address] [place] [address] Derrek Kirkland MD [address], [facility] [address] [place] [address] [facility] Start: 12-15-2023 End: 12-14-2024 US.doppler Lower extremity vein - right Vas venous duplex lwr single right Vascular Ultrasound Routine Venous ulcer of ankle, right ([facility]) Expected: 12/15/2023, Expires: 12/14/2024 [facility] Work Phone: Comment on above: Expected: 12/15/2023, Expires: Start: 12-14-2023 End: 12-14-2023 Patient encounter procedure 12/14/2023 1:00 PM EST Office Visit [facility] [address] [place] [address] Wily Ignram, ENERGY EFFICIENCY SPECIALIST [address] [place], [place] [id number] Primary osteoarthritis of left hip; History of [...] 10:00 AM EDT Office Visit [facility] [address] [place] [phone] Derrek Kirkland MD [address], [facility] [address] [place] [address] [facility] Start: 11-18-2023 End: 11-18-2023 Admission to same day surgery center 11/18/2023 3:30 PM EDT - 11/18/2023 6:00 PM EDT Surgery [facility] [address] [place] [phone] Derrek Kirkland MD [address], [facility] [address] [place] [address] ANGIOPLASTY ILIAC-ILIAC SHOCKWAVE INTRAVASCULAR LITHOTRIPSY & STENTING [66027 (CPT )] [facility] Comment on above: ANGIOPLASTY ILIAC-ILIAC SHOCKWAVE INTRAV ASCULAR LITHOTRIPSY & STENTING [56238 (CPT )] Start: 11-18-2023 End: 11-18-2023 Revascularization iliac artery angiop 1st vsl ANGIOPLASTY ILIAC 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 ([facility]) 11/18/2023 3:30 PM EDT [facility] SPECIAL PROC Start: 11-18-2023 Subsequent hospital visit by physician 11/18/2023 3:30 PM EDT Hospital Encounter [facility] Special Procedures [address] [place] [phone] Derrek Kirkland MD [address], [address] [address] [facility] Start: 11-18-2023 End: 11-18-2023 Patient encounter procedure 11/18/2023 9:30 AM EDT Office Visit [facility] [address] [place] [phone] Derrek Kirkland MD [address], [address] [address] (Work) [facility] Start: 11-05-2023 End: 11-05-2023 Admission to same day surgery center 11/05/2023 1:30 PM EDT - 11/05/2023 3:30 PM EDT Surgery [facility] [address] [place] [phone] Derrek Kirkland MD [address], [address] [address] ANGIOPLASTY ILIAC Iliac shockwave intravascular lithotripsy and stenting [48633 (CPT )] [facility] Comment on above: ANGIOPLASTY ILIAC Iliac shockwave intrav ascular lithotripsy and stenting [98869 (CPT )] Start: 11-05-2023 End: 11-05-2023 Revascularization iliac artery angiop 1st vsl [facility] Start: 11-05-2023 Subsequent hospital visit by physician 11/05/2023 1:30 PM EDT Hospital Encounter [facility] [address] 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 ([facility]) Venous ulcer of right leg ([facility]) Expected: 10/14/2023, Expires: 10/13/2024 [facility] Work Phone: Comment on above: Expected: 10/14/2023, Expires: 5 Start: 10-10-2023 COVID-19 Vaccine ( season) COVID-19 Vaccine ( season) [facility] [employer] [facility] Start: 10-10-2023 Influenza vaccination [facility] Start: 06-17-2023 End: 06-16-2024 US.doppler Extremity arteries - bilateral for physiologic artery study Vas art doppler lwr bilat mult lev/PVR Vascular Ultrasound Routine PAD (peripheral artery disease) ([facility]) Expected: 06/17/2023, Expires: 06/16/2024 [employer] Work Phone: Comment on above: Expected: 06/17/2023, Expires: 5 Start: 03-30-2022 Bacteria identified in Urine by Culture [facility] Start: 11-08-2018 Pneumococcal Vaccine: 65+ Years (2 of 2 - PCV) Pneumococcal Vaccine: 65+ Years (2 of 2 - PCV) [facility] Start: 2001 Fall Risk Screening Fall Risk Screening [facility] Start: 1986 Administration of varicella zoster vaccine Zoster (Shingles) Vaccine (1 of 2) [facility] Start: 09-29-1955 DTaP,Tdap and Td Vaccines (1 - Tdap) DTaP,Tdap and Td Vaccines (1 - Tdap) [facility] Start: 1948 [facility] Start: 1936 Medicare Annual Wellness Visit Medicare Annual Wellness [facility] Bacteria identified in Blood by Aerobe culture [employer] Work Phone: Bacteria identified in Stool by Culture [facility] Bacteria identified in Urine by Culture [facility] Basic metabolic 2000 panel - Serum or Plasma Basic Metabolic Panel Lab Routine Lab max of 3 days, Daily, for lab use only until discontinued starting 01/02/2024, 6 completed [facility] Comment on above: Lab max of 3 days, Daily, for lab use on ly until discontinued starting 01/02/2024, 6 completed End: 01-04-2024 Bedside Glucose *Place/Obtain serum glucose if >500(>600 [facility]) per glucometer. Bedside Glucose *Place/Obtain serum glucose if >500(>600 [facility]) per glucometer. Point of Care Testing Routine Once for 1 Occurrences starting 01/04/2024 until 01/04/2024 [facility] Comment on above: Once for 1 Occurrences starting 01/04/20 until 01/04/2024 CBC W Auto Different ial panel - Blood CBC auto differential Lab Routine Lab max of 3 days, Daily, for lab use only until discontinued starting 01/02/2024, 6 completed [facility] Comment on above: Lab max of 3 days, Daily, for lab use on ly until discontinued starting 01/02/2024, 6 completed Comprehensive metabo lic 2000 panel - Serum or Plasma [facility] Elastase.pancreatic [Mass/mass] in Stool [facility] End: 01-04-2024 Electrocardiogram, 12-lead Electrocardiogram, 12-lead ECG STAT Once for 1 Occurrences starting 01/04/2024 until 01/04/2024 [employer] Work Phone: Comment on above: Once for 1 Occurrences starting 01/04/20 until 01/04/2024 Oxygen Therapy - Sandra ntain SpO2: 90%; *MERCHANDISE HANDLER Guidelines for O2: Yes; Document: \[email or web address]\epic\ EPIC_Reference\Orders\Resp iratory Care Guidelines\CPG Oxygen 2022.pdf Oxygen Therapy - Maintain SpO2: 90%; *MERCHANDISE HANDLER Guidelines for O2: Yes; Document: \[email or web address]\ep ic\EPIC_Reference\Order s\Respiratory Care Guidelines\CPG Oxygen 2022.pdf Respiratory Care Routine As Needed until discontinued starting 01/01/2024 [facility] Work Phone: Comment on above: As Needed until discontinued starting Patient Education Small Bowel Re section (DC) Low-fiber diet [facility] Work Phone: Patient referral [facility] Work Phone: Urine culture [facility] Immunizations Immunization Date Immunization Notes Care Provider Fa cili 11-23-2023 Covid-19, Mrna, Lnp- s, Pf,jose-sucrose,30 Mcg/0.3ml Fall23 Derrek Kirkland MD Work Phone: [facility] 11-23-2023 influenza, high dose seasonal, preservative-free Derrek Kirkland MD Work Phone: [facility] 11-23-2023 influenza virus vaccine, unspecified formulation Derrek Kirkland MD Work Phone: [facility] 02-16-2023 Influenza Vaccine, Quadrivalent, Adjuvanted Derrek Kirkland MD Work Phone: [facility] 02-16-2023 influenza virus vaccine, unspecified formulation Derrek Kirkland MD Work Phone: [facility] 02-16-2022 Shingrix 50 MCG/0.5M L; Translations: [Shingrix 50 MCG/0.5ML] Hunter Brown Other [employer] Other 01-15-2022 influenza virus vaccine, unspecified formulation MALATHI VIEIRA [facility] 01-15-2022 Influenza, High-dose , Quadrivalent Derrek Kirkland MD Work Phone: [facility] 01-15-2022 SARS-CoV-2 (COVID-19 ) [id number] MALATHI DEB [facility] 01-23-2021 SARS-CoV-2 (COVID-19 ) mRNA BNT-162b2 vax MALATHI DEB [facility] 01-06-2021 Influenza Vaccine, Quadrivalent, Adjuvanted Derrek Kirkland MD Work Phone: [facility] 01-06-2021 influenza virus vaccine, unspecified formulation MALATHI DEB [facility] 03-27-2020 SARS-CoV-2 (COVID-19 ) mRNA BNT-162b2 vax MALATHI DEB [facility] 03-04-2020 SARS-CoV-2 (COVID-19 ) mRNA BNT-162b2 vax MALATHI DEB [facility] 12-06-2019 influenza virus vaccine, unspecified formulation MALATHI DEB [facility] 12-06-2019 influenza, injectabl e, quadrivalent, preservative free Derrek Kirkland MD Work Phone: [facility] [employer] [facility] 12-14-2018 influenza virus vaccine, unspecified formulation MALATHI DEB [facility] 12-14-2018 Seasonal trivalent influenza vaccine, adjuvanted, preservative free Derrek Kirkland MD Work Phone: [facility] 02-02-2018 influenza virus vaccine, unspecified formulation MALATHI DEB [facility] 02-02-2018 Seasonal trivalent influenza vaccine, adjuvanted, preservative free Derrek Kirkland MD Work Phone: [facility] 11-08-2017 pneumococcal polysaccharide vaccine, 23 valent MALATHI DEB [facility] 11-02-2017 influenza virus vaccine, unspecified formulation MALATHI DEB [facility] 11-02-2017 influenza, injectabl e, quadrivalent, preservative free Wily Ingram ENERGY EFFICIENCY SPECIALIST Work Phone: [facility] 12-09-2016 influenza virus vaccine, unspecified formulation MALATHI DEB [facility] 12-09-2016 influenza, injectabl e, quadrivalent, preservative free Wily Ingram ENERGY EFFICIENCY SPECIALIST Work Phone: [facility] 12-02-2016 influenza virus vaccine, unspecified formulation MALATHI DEB [facility] 12-02-2016 influenza, high dose seasonal, preservative-free Derrek Kirkland MD Work Phone: [facility] 12-17-2015 influenza virus vaccine, unspecified formulation MALATHI DEB [facility] 12-17-2015 influenza, high dose seasonal, preservative-free Derrek Kirkland MD Work Phone: [facility] 10-10-2015 influenza virus vaccine, unspecified formulation MALATHI DEB [facility] 10-10-2015 influenza, injectabl e, quadrivalent, preservative free Wily Ingram ENERGY EFFICIENCY SPECIALIST Work Phone: [facility] 11-19-2014 influenza virus vaccine, unspecified formulation MALATHI VIEIRA [facility] 11-19-2014 influenza, high dose seasonal, preservative-free Derrek Kirkland MD Work Phone: [facility] 11-09-2014 pneumococcal polysaccharide vaccine, 23 valent MALATHI VIEIRA [facility] NEGATED: Highlighted row has not occurred!01-26-2023 influenza virus vaccine, unspecified formulation MALATHI VIEIRA [facility] Payers Date Payer Category Payer [facility] [id number] 315 2019 [facility] Managed Care - Other [facility] [id number] 2019 Unknown [facility] HMO/PPO/TRUST [id number] 2019-Present [phone] [place] [address] [id number] 4.2.7.3.497417.315 2001 Medicare [id number]. 1.13.69 3.2.7.9.942181.195283. 315 1959 [facility] [id number] 2.16.840.1.388723.19 1959 Medicare [id number] 2.16.840.1.821774.19 1936 Unknown [id number] 2.16.840.1.180813.3.57 9.2.593 1936 Unknown [id number] 2.16.840.1.830415.3.57 9.2.593 1936 Unknown [id number] 2.16.840.1.419676.3.57 9.2.593 1936 Unknown [id number] 2.16.840.1.876871.3.57 9.2.593 1936 Unknown [id number] 2.16.840.1.701110.3.57 9.2.593 1936 Unknown [id number] 2.16.840.1.767307.3.57 9.2.593 1936 Unknown [id number] 2.16.840.1.782120.3.57 9.2.593 1936 Unknown [id number] 2.16.840.1.879032.3.57 9.2.593 1936 Unknown [id number] 2.16.840.1.321781.3.57 9.2.593 1936 Unknown [id number] 2.16.840.1.959826.3.57 9.2.593 1936 Unknown [id number] 2.16.840.1.081293.3.57 9.2.593 1936 Unknown [id number] 2.16.840.1.148159.3.57 9.2.593 1936 Unknown [id number] 2.16.840.1.676577.3.57 9.2.593 1936 Unknown [id number] 2.16.840.1.210812.3.57 9.2.593 1936 Unknown [id number] 2.16.840.1.677416.3.57 9.2.593 1936 Unknown [id number] 2.16.840.1.414268.3.57 9.2.593 1936 Unknown [id number] 2.16.840.1.240921.3.57 9.2.593 1936 Unknown [id number] 2.16.840.1.689766.3.57 9.2.593 1936 Unknown [id number] 2.16.840.1.724367.3.57 9.2.593 1936 Unknown [id number] 2.16.840.1.319268.3.57 9.2.593 1936 Unknown [id number] 2.16.840.1.680337.3.57 9.2.593 1936 Unknown [id number] 2.16.840.1.697076.3.57 9.2.727 1936 Unknown [id number] 2.16.840.1.045737.3.57 9.2.727 1936 Unknown [id number] 2.16.840.1.750323.3.57 9.2.727 1936 Unknown [id number] 2.16.840.1.902873.3.57 9.2.727 1936 Unknown [id number] 2.16.840.1.649640.3.57 9.2.1286 1936 Unknown [id number] 2.16.840.1.949013.3.57 9.2.1286 1936 Unknown [id number] 2.16.840.1.240908.3.57 9.2.1286 1936 Unknown [id number] 2.16.840.1.245404.3.57 9.2.128 1936 Unknown [id number] 2.840.1.321390.3.57 9.2.128 1936 Unknown [id number] 2.840.1.565469.3.57 9.2.128 1936 Unknown [id number] 2.840.1.726370.3.57 9.2.128 1936 Unknown [id number] 2.840.1.641969.3.57 9.2.128 1936 Unknown [id number] 2.840.1.342033.3.57 9.2.128 1936 Unknown [id number] 2.0.1.107868.3.57 9.2.128 1936 Unknown [id number] 2.840.1.383386.3.57 9.2.128 1936 Unknown [id number] 2.840.1.470023.3.57 9.2.125 1936 Unknown [id number] 2.840.1.308476.3.57 9.2.125 1936 Unknown [id number] 2.840.1.733736.3.57 9.2.125 1936 Unknown [id number] 2.840.1.492031.3.57 9.2.1259 1936 Unknown [id number] 2.840.1.157106.3.57 9.2.125 1936 Unknown [id number] 2.840.1.826789.3.57 9.2.128 1936 Unknown [id number] 2.840.1.628813.3.57 9.2.128 1936 Unknown [id number] 2..840.1.684682.3.57 9.2.128 1936 Unknown [id number] 2.840.1.531555.3.57 9.2.128 1936 Unknown [id number] 2.840.1.175897.3.57 9.2.128 1936 Unknown [id number] 2.840.1.171189.3.57 9.2.128 1936 Unknown [id number] 2.840.1.665079.3.57 9.2.128 1936 Unknown [id number] 2.840.1.955628.3.57 9.2.128 1936 Unknown [id number] 2.0.1.745800.3.57 9.2.128 1936 Unknown [id number] 2.840.1.206677.3.57 9.2.128 1936 Unknown [id number] 2.840.1.010161.3.57 9.2.128 1936 Unknown [id number] 2.840.1.401498.3.57 9.2.128 1936 Unknown [id number] 2.840.1.652496.3.57 9.2.128 1936 Unknown [id number] 2.840.1.115852.3.57 9.2.1286 Self-pay Self Pay [id number] [facility] [id number] Social History Date Type Detail Facility Unknown if ever smoked [employer] Other Start: 03-21-2020 End: 12-15-2022 Sex Assigned At [facility] Start: 1935 Sex Assigned At Female [facility] Start: 05-19-2022 End: 12-31-2023 Tobacco smoking status Ex-smoker (finding) [facility] Start: 09-22-2022 Tobacco smoking status Never [facility] Start: 07-18-2022 End: 05-05-2023 Tobacco smoking status NHIS Never smoked tobacco (finding) [facility] Start: 07-18-2022 End: 12-31-2023 Tobacco use and exposure Smokeless tobacco non-user [facility] Start: 11-05-2023 End: 01-03-2024 Alcoholic beverage intake Current drinker of alcohol (finding) [facility] Start: 03-21-2020 End: 12-15-2022 History of Social function [facility] Start: 07-18-2022 Alcohol Comment occasionally a glass of wine [facility] Start: 1935 Sex assigned at Not on file [facility] [employer] yste End: 12-30-1993 History of tobacco use Current smoker [facility] End: 12-30-1993 History of tobacco use Cigarette Smoker [facility] Has the Dem[employer], Bright [employer], [employer], or water [employer] threatened to shut off services in your home in past 12Mo No [facility] How often to you hav e a drink containing alcohol? Monthly or less [facility] How many standard drinks containing alcohol do you have on a typical day? 1 or 2 [facility] How often do you hav e 6 or more drinks on 1 occasion? Never [facility] Start: 10-27-2023 Tobacco Comment QUIT IN 1989 [facility] Start: 12-31-2023 [facility] Start: 09-13-2014 End: 07-13-2024 Sex Female (finding) [facility] Start: 06-17-2023 End: 10-14-2023 Alcoholic beverage intake [facility] Start: 10-27-2023 Alcohol Comment [facility] Start: 05-03-2024 End: 05-04-2024 SDOH Follow up SDOH Follow up [facility] Work Phone: Medical Equipment Procedure Code Equipment Code Equipment Origin al Text Equipment Identifier Dates Graft Vsc 80cm 8 mm [place] Thnwl Propaten Hep Ptfe Rem Rng - [id number] - [id number] Start: 01-01-2024 Comment on above: Description: RIGHT F EMORAL - POPLITEAL ARTERY Incv/Patch Cv 8x .8cm N-Pyrg Tpr End Photofix Decellularized Bvn Rpl [id number] Use [id number] - [id number] Start: 01-01-2024 Comment on above: Description: RIGHT F EMORAL ARTERY Stent 7fr 135cm Vbx Ba Ppm Expandable Cath Hep Vbhn Eprsth 8 Rpl [id number] - [id number] - [id number] Start: 01-01-2024 Comment on above: Description: RIGHT I LIAC ARTERY Goals Date Patient Goal Desired Activity /State Personal health goal Comment on above: Formatting of this n ote might be different from the original. Evaluation of progress towards goal: Functional Status Date Assessment Result Facility 05-05-2024 Functional status Patient is Pro gressing Toward Baseline [facility] Work Phone: 01-26-2023 Functional Status N/A [facility] 09-22-2022 Functional Status N/A [facility] 06-09-2022 Functional Status N/A [facility] 05-19-2022 Functional Status N/A [facility] Mental Status Date Assessment Result Facility 05-05-2024 Cognitive function Cognitive Sta tus Patient at Baseline [facility] Work Phone: [facility] Clinical Notes 01-27-2021 to 07-27-2024 Assessment & Plan Note - Derrek Kirkland MD - 07/27/2024 11:33 AM EDTAssessment & Plan Note - Derrek Kirkland MD - 07/27/2024 11:33 AM [facility] Kirkland MD - 07/27/2024 10:40 AM EDT Note Date & Type Note Facility 07-27-2024 Evaluation + Plan note Associated Problem(s): PAD (peripheral artery disease) She [...] high-risk. She is on aspirin and Plavix. [facility] 07-27-2024 Miscellaneous Notes Associated Problem(s): PAD (peripheral artery disease) She [...] aspirin and Plavix. documented in this encounter [facility] 07-27-2024 History of Present illness Narrative Images from the original note were not included. To: GYPSY MCMAHON MD HPI: Sage Hsu is a 88 y.o. female with history of venous ulcer in critical limb ischemia with tissue loss status post revascularization venous treatment. Wound healed nicely. She needed to be off her Xarelto and she also had poor runoff. The [...] Critical limb ischemia of right lower extremity ([facility]) Dental disease UPPER AND LOWER DENTURE DIAZ (dyspnea on exertion) Fractures 2018 LEFT HIP GERD (gastroesophageal reflux disease) HL (hearing loss) Hyperlipidemia Hypertension Microscopic colitis PAD (peripheral artery disease) ([facility]) Peptic ulceration BLEEDING ULCER ADMITTED 2018 X13 DAYS ZARA Rash Skin cancer REMOVED Sleep apnea No CPAP Thin skin Urinary tract infection CHRONIC, SEES ID EVERY 3 MONTHS Visual impairment Wound of ankle RIGHT SINCE 07/2023 Past Surgical History: Past Surgical History: Procedure Laterality Date ABDOMINAL SURGERY ANGIOGRAM EXTREMITY LOWER Right 01/01/2024 Performed by Derrek Kirkland MD at [facility] PROC ANGIOPLASTY ILIAC STENT PLACEMENT Right 01/01/2024 Performed by Derrek Kirkland MD at [facility] PROC ANGIOPLASTY ILIAC-ILIAC SHOCKWAVE INTRAVASCULAR LITHOTRIPSY Right 11/18/2023 Performed by Derrek Kirkland MD at [facility] PROC ARTHROSCOPY SHOULDER W/ OPEN ROTATOR CUFF REPAIR Left 2011 BOVINE PATCH ANGIOPLASTY CUTDOWN FEMORAL Right 01/01/2024 Performed by Derrek Kirkland MD at [facility] SPECIAL PROC BOVINE PATCH ANGIOPLASTY ILEOFEMORAL Right 01/01/2024 Performed by Derrek Kirkland MD at [facility] SPECIAL PROC BYPASS ARTERY FEMORAL BELOW KNEE POPLITEAL W/ VEIN PATCH/ HIGH GSV LIGATION AND HARVEST Right 01/01/2024 Performed by Derrek Kirkland MD at [facility] PROC CARDIAC SURGERY CATARACT EXTRACTION CHOLECYSTECTOMY N/A 2008 CORONARY ARTERY BYPASS GRAFT 1999 x 5 ENDARTERECTOMY FEMORAL AND ILIOFEMORAL ENDARTERECTOMY Right 01/01/2024 Performed by Derrek Kirkland MD at [facility] PROC EYE SURGERY HERNIA REPAIR N/A 03/2012 HIP FRACTURE SURGERY Left 05/2017 HYSTERECTOMY N/A JOINT REPLACEMENT lower ext angiogram Bilateral 01/07/2022 Performed by Taryn Belle MD at [facility] CARDIAC CATH LABS SCLEROTHERAPY LOWER EXTREMITY Right 12/24/2023 Performed by Derrek Kirkland MD at [facility] TOTAL HIP ARTHROPLASTY Left 2019 VASCULAR [...] 175.3 cm (5' 9 ) BMI 22.15 kg/m Body mass index is 22.15 kg/m . Physical Exam: Physical Exam Constitutional: [...] Overview Added automatically from request for surgery [id number] Current Assessment & Plan She had a [...] high-risk. She is on aspirin and Plavix. Sage was seen today for go over art doppler and art duplex. Diagnoses and all orders for this visit: PAD (peripheral artery disease) Other orders - cilostazoL (PLETAL) 100 mg tablet; Take 1 tablet (100 mg total) by mouth in the morning and 1 tablet (100 mg total) before bedtime. Derrek Kirkland MD, QUENTIN, RPVI, FSVS, FACS [facility] This note was created with the assistance of a speech recognition program. While intending to generate a timely document that accurately reflects the content of the visit, no guarantee can be provided that every grammatical or spelling mistake has been or will be identified or corrected. Thank you for your understanding. documented in this encounter [facility] 07-26-2024 Note Patient is here toda y for a 6 month follow up. Patient [...] Review of Systems Constitutional: Positive for malaise/fatigue. [facility] 07-26-2024 Note Cardiovascular Medic [facility] SUBJECTIVE Chief Complaint Patient presents with Hypertension Peripheral Vascular Disease Sage Hsu is a 88 y.o. female here [...] kg (129 lb) SpO2 100% BMI 18.51 kg/m??? Smoking Status Former BSA 1.7 m??? Medications: Current Outpatient Medications: ascorbic acid (Vitamin [...] as directed., Disp: 90 tablet, Rfl: 3 pantoprazole (ProtoNix) [...] not taking: Reported on 03/02/2024), Disp: 1 (more content not included)... [facility] 05-17-2024 History of Present illness Narrative Images from the original note were not included. Patient is about 2-1/2 weeks status post exploratory laparotomy, lysis of adhesions, small bowel resection for bowel obstruction and ischemic bowel. She is currently at the [facility]. She is doing well. She is eating. Bowels are moving. She is not having much pain. On examination, she is awake alert and in no acute distress. Abdomen is soft, nondistended. Midline incision is clean and dry without evidence of infection. Hugo are intact. 1. Status post small bowel resection 2. Ischemic enteritis (CMS/HCC) Hugo are removed and Steri-Strips placed. The patient can resume her normal diet. She will be discharged from the office and continue to follow with her primary care physician. documented in this encounter [facility] 05-05-2024 Discharge summary [facility] 05-05-2024 Progress note Note Date/Time May 05, 2024 8:39am [facility] [address] [place] [address] General Surgery Progress Note Signed Patient: Sage Hsu MR#: [id number] : 1935 Acct:[id number] Age/Sex: 88 / F Adm Date: 5 Loc: Room: [address] [place] [address] Type: ADM IN Attending Dr: Dereje Gil MD Copies to: ~ Date of Service: 05/05/2024 Subjective Subjective Patient reports: no new complaints, tolerating liquids well, tolerating a regular diet, flatus and no bowel movement HPI: Patient 88 year old female, is on post op day 5 for Exploratory laparotomy, Lysis of adhesions,Small bowel resection,Removal of mesh. Patient is awake and responsive. She denies fever, nausea, vomiting. Denies any abdominal pain. Wound vac in place. Working with physical therapy. Patient was able to eat Spaghetti last night with no complications Patient has had flatulence. She had a small bowel movement yesterday and another bowel movement today Vital signs Stable Allergies & Medications Medications and Allergies Allergies Penicillins Allergy (Severe, Verified 04/13/24 14:59) Rash levofloxacin Allergy (Unknown, Verified 04/13/24 14:59) shaking promethazine (From Phenergan) Allergy (Unknown, Verified 04/13/24 14:59) Vomiting, anaphylaxis ezetimibe Allergy (Verified 04/13/24 14:59) Unknown Reaction gemfibrozil Allergy (Verified 04/13/24 14:59) Unknown Reaction Histamine H2 Inhibitors Allergy (Verified 04/13/24 14:59) Unknown Reaction propoxyphene Allergy (Verified 04/13/24 14:59) Unknown Reaction Antihistamine Allergy (Unknown, Uncoded 05/21/23 09:56) Unknown Reaction Home Medications cholecalciferol (vitamin D3) 50 mcg (2,000 unit) tablet (Vitamin D3) 2,000 unit PO DAILY 12/06/17 [History Confirmed 04/28/24] Lactobacillus acidophilus-Bifidobac.animalis 2.5 billion cell capsule (Daily Probiotic) 1 cap PO DAILY 04/15/23 [History Confirmed 04/28/24] clopidogrel 75 mg tablet 75 mg PO DAILY 04/15/23 [History Confirmed 04/28/24] estradiol 0.01% (0.1 mg/gram) vaginal cream See Rx Instructions .Route .COMPLEX #42.5 grams 04/26/23 [Rx Confirmed 04/29/24] bismuth subsalicylate 262 mg/15 mL oral suspension (Pepto-Bismol) 524 mg PO Q30-60M PRN diarrhea 05/21/23 [History Confirmed 04/28/24] pantoprazole 20 mg tablet,delayed release 20 mg PO DAILY #90 tabs 08/09/23 [Rx Confirmed 04/28/24] simvastatin 40 mg tablet 40 mg PO DAILY 08/24/23 [History Confirmed 04/28/24] budesonide 3 mg capsule,delayed,extended release 3 mg PO DAILY #90 ea 09/22/23 [Rx Confirmed 04/28/24] spironolactone 50 mg tablet See Rx Instructions .Route .COMPLEX #90 tabs 10/13/23 [Rx Confirmed 04/28/24] ascorbic acid (vitamin C) 250 mg tablet 250 mg PO BID 02/21/24 [History Confirmed 04/29/24] melatonin 3 mg capsule 6 mg PO QHS PRN sleep 02/21/24 [History Confirmed 04/28/24] nebivolol 5 mg tablet 10 mg PO DAILY 02/21/24 [History Confirmed 04/28/24] prostat PO BID 02/21/24 [History Confirmed 04/13/24] gabapentin 100 mg capsule 100 mg PO BID #60 caps 03/23/24 [Rx Confirmed 04/28/24] multivitamin (Daily Multi-Vitamin tablet) 1 tab PO DAILY 03/23/24 [History Confirmed 04/28/24] zinc acetate 50 mg (zinc) capsule (Galzin) 50 mg PO DAILY 03/23/24 [History Confirmed 04/28/24] cephalexin 500 mg capsule 500 mg PO TID 04/13/24 [History Confirmed 04/28/24] aspirin 81 mg tablet,delayed release (Adult Aspirin Regimen) 81 mg PO DAILY 04/29/24 [History Confirmed 04/29/24] loperamide 2 mg capsule (Anti-Diarrheal (loperamide)) 2 mg PO .6hr PRN loose stool 04/29/24 [History Confirmed 04/29/24] rivaroxaban 2.5 mg tablet (Xarelto) 2.5 mg PO BID blood thinner 04/29/24 [History Confirmed 04/29/24] Active Medications Acetaminophen (Acetaminophen 325 Mg Tablet) 650 mg PO Q6H PRN PRN Reason: Pain Scale 1 - 3 Stop: 05/03/25 16:34 Hydrocodone Bitart/Acetaminophen (Hydrocodone/Acetaminophen 5-325 Mg Tablet) 1 tab PO Q6H PRN PRN Reason: Pain Last Admin: 05/04/24 20:35 Dose: 1 tab Albuterol (Albuterol Neb 2.5 Mg/3 Ml Vial.Neb) 2.5 mg INHALATION Q2H PRN PRN Reason: Shortness Of Breath Stop: 04/28/25 14:20 Heparin Sodium (Porcine) (Heparin 5,000 Unit/Ml Vial) 5,000 unit SUBCUT Q12HR [facility] Stop: 04/28/25 20:59 Last Admin: 05/04/24 20:37 Dose: 5,000 unit Hydralazine HCl (Hydralazine 20 Mg/Ml Vial) 10 mg IV-PUSH Q4H PRN PRN Reason: if SBP > 185 Stop: 04/28/25 14:20 Last Admin: 05/04/24 04:10 Dose: 10 mg Hydromorphone HCl (Hydromorphone 0.5 Mg/0.5 Ml Syringe) 0.25 mg IV-PUSH Q4H PRN PRN Reason: pain Last Admin: 05/03/24 11:01 Dose: 0.25 mg Nebivolol (Nebivolol 5 Mg Tablet) 10 mg PO DAILY [facility] Stop: 05/04/25 05:19 Last Admin: 05/04/24 09:32 Dose: Not Given Ondansetron HCl (Ondansetron 4 Mg/2 Ml Vial) 4 mg IV-PUSH Q6H PRN PRN Reason: Nausea And Vomiting Stop: 04/29/25 02:25 Last Admin: 04/29/24 03:19 Dose: 4 mg Oxycodone HCl (Oxycodone Ir 5 Mg Tablet) 5 mg PO Q6HR PRN PRN Reason: Moderate Pain Pantoprazole Sodium (Pantoprazole 40 Mg Tablet.Dr) 40 mg PO DAILY [facility] Stop: 05/05/25 08:59 Spironolactone (Spironolactone 50 Mg Tablet) 50 mg PO DAILY [facility] Stop: 05/04/25 08:59 Last Admin: 05/04/24 10:09 Dose: 50 mg Exam Physical Exam Vital Signs: Temp Pulse Resp BP Pulse Ox O2 Del Method O2 Flow Rate 97.9 F 69 16 166/67 H 93 L Room Air 2 05/05/24 04:05 05/05/24 04:05 05/05/24 04:05 05/05/24 04:05 05/05/24 04:05 05/05/24 04:05 05/04/24 10:30 FiO2 0 05/02/24 23:33 Const General: cooperative, healthy appearing, comfortable and no acute distress Orientation: alert, awake and oriented x3 Resp Effort & Inspection: normal respiratory effort, able to speak in complete sentences and symmetric chest movement Auscultation: clear to auscultation bilaterally, no rales, no rhonchi and no wheezes Cardio Rate: regular rate Rhythm: regular rhythm Pulses: radial pulses present GI Inspection: normal to inspection, non-distended and incision (prevena Vac in place) Palpation: soft, not firm, no guarding, not rigid and nontender Auscultation: normal bowel sounds Neuro General: patient alert, patient awake and patient oriented x3 Psych Attitude: cooperative Thought Content: normal Objective Pain Assessment Abdomen: Pain Description: Acute, Soreness and Pressure Pain Intensity: 2 Intake & Output 24 hour I&O: Intake & Output 05/04/24 05/04/24 05/05/24 15:59 23:59 07:59 Intake Total 480 / 1130 500 / 1130 100 / 100 Output Total 500 / 700 300 / 300 Balance 480 / 430 0 / 430 -200 / -200 Weight 72.6 kg Labs 05/05/24 05:35 05/05/24 05:35 Laboratory Results - Last 48 hrs. 05/05/24 05:35: Corrected WBC 9.3, Uncorrected WBC Count 9.3, RBC 3.18 L, Hgb 9.4 L, Hct 27.6 L, MCV 86.8, MCH 29.5, MCHC 34.0, RDW 15.6 H, Plt Count 280, MPV7.9, Neut % (Auto) 77.1, Lymph % (Auto) 7.7, [place] % (Auto) 9.8, Eos % (Auto) 5.0, Baso % (Auto) 0.4, Nucleat RBC Rel Count 0.0, Neut # (Auto) 7.1, Lymph # (Auto) 0.7 L, [place] # (Auto) 0.9 H, Eos # (Auto) 0.5 H, Baso # (Auto) 0.0, PHA Creatinine Clear 39.69, Sodium 138, Potassium 3.9, Chloride 108 H, Carbon Dioxide 25.4, Anion Gap 8.5, BUN 18, Creatinine 1.08, Est GFR (CKD-EPI) 49.715, Glucose 83, Calcium 7.9 L 05/04/24 05:37: Corrected WBC 10.4, Uncorrected WBC Count 10.4, RBC 3.31 L, Hgb 9.7 L, Hct 28.7 L, MCV 86.7, MCH 29.4, MCHC 33.9, RDW 15.4 H, Plt Count 305, MPV7.6, Neut % (Auto) 75.9, Lymph % (Auto) 9.7, [place] % (Auto) 9.9, Eos % (Auto) 4.2, Baso % (Auto) 0.3, Nucleat RBC Rel Count 0.0, Neut # (Auto) 7.9 H, Lymph # (Auto) 1.0, [place] # (Auto) 1.0 H, Eos # (Auto) 0.4, Baso # (Auto) 0.0, PHA Creatinine Clear 42.86, Sodium 140, Potassium 3.4 L, Chloride 109 H, Carbon Dioxide 24.4, Anion Gap 10.0, BUN 20, Creatinine 1.00, Est GFR (CKD-EPI) 54.525,Glucose 85, Calcium 8.1 L, Total Bilirubin 0.7, AST 13, ALT 9, Alkaline Phosphatase 17 L, Total Protein 5.0 L, Albumin 2.8 L, Globulin 2.2, Albumin/Globulin Ratio 1.3 A&P - General Surgery Assessment/Plan (1) Status post small bowel resection: (2) Bowel obstruction: Qualifiers: Intestinal obstruction type: other intestinal obstruction Intestinal obstruction extent: unspecified extent Qualified Code(s): K56.699 - Other intestinal obstruction unspecified as to partial versus complete obstruction (3) Chronic colitis: Plan Okay to discharge from surgery standpoint. Can discontinue Prevena VAC. Documented By: Tyrese Girard MD 05/05/24 0756 Signed By: <Electronically signed by MD Tyrese Girard> 05/05/24 0839 [facility] Work Phone: [phone] 355-950603-28-20[place] [address] General Surgery Progress Note Signed Patient: Sage Hsu MR#: [id number] : 1935 Acct:[id number] Age/Sex: 88 / F Adm Date: 5 Loc: Room: 5X2217-3 Type: ADM IN Attending Dr: Dereje Gil MD Copies to: ~ Date of Service: 05/05/2024 Subjective Subjective Patient reports: no new complaints, tolerating liquids well, tolerating a regular diet, flatus and no bowel movement HPI: Patient 88 year old female, is on post op day 5 for Exploratory laparotomy, Lysis of adhesions,Small bowel resection,Removal of mesh. Patient is awake and responsive. She denies fever, nausea, vomiting. Denies any abdominal pain. Wound vac in place. Working with physical therapy. Patient was able to eat Spaghetti last night with no complications Patient has had flatulence. She had a small bowel movement yesterday and another bowel movement today Vital signs Stable Allergies & Medications Medications and Allergies Allergies Penicillins Allergy (Severe, Verified 04/13/24 14:59) Rash levofloxacin Allergy (Unknown, Verified 04/13/24 14:59) shaking promethazine (From Phenergan) Allergy (Unknown, Verified 04/13/24 14:59) Vomiting, anaphylaxis ezetimibe Allergy (Verified 04/13/24 14:59) Unknown Reaction gemfibrozil Allergy (Verified 04/13/24 14:59) Unknown Reaction Histamine H2 Inhibitors Allergy (Verified 04/13/24 14:59) Unknown Reaction propoxyphene Allergy (Verified 04/13/24 14:59) Unknown Reaction Antihistamine Allergy (Unknown, Uncoded 05/21/23 09:56) Unknown Reaction Home Medications cholecalciferol (vitamin D3) 50 mcg (2,000 unit) tablet (Vitamin D3) 2,000 unit PO DAILY 12/06/17 [History Confirmed 04/28/24] Lactobacillus acidophilus-Bifidobac.animalis 2.5 billion cell capsule (Daily Probiotic) 1 cap PO DAILY 04/15/23 [History Confirmed 04/28/24] clopidogrel 75 mg tablet 75 mg PO DAILY 04/15/23 [History Confirmed 04/28/24] estradiol 0.01% (0.1 mg/gram) vaginal cream See Rx Instructions .Route .COMPLEX #42.5 grams 04/26/23 [Rx Confirmed 04/29/24] bismuth subsalicylate 262 mg/15 mL oral suspension (Pepto-Bismol) 524 mg PO Q30- 60M PRN diarrhea 05/21/23 [History Confirmed 04/28/24] pantoprazole 20 mg tablet,delayed release 20 mg PO DAILY #90 tabs 08/09/23 [Rx Confirmed 04/28/24] simvastatin 40 mg tablet 40 mg PO DAILY 08/24/23 [History Confirmed 04/28/24] budesonide 3 mg capsule,delayed,extended release 3 mg PO DAILY #90 ea 09/22/23 [Rx Confirmed 04/28/24] spironolactone 50 mg tablet See Rx Instructions .Route .COMPLEX #90 tabs 10/13/23 [Rx Confirmed 04/28/24] ascorbic acid (vitamin C) 250 mg tablet 250 mg PO BID 02/21/24 [History Confirmed 04/29/24] melatonin 3 mg capsule 6 mg PO QHS PRN sleep 02/21/24 [History Confirmed 04/28/24] nebivolol 5 mg tablet 10 mg PO DAILY 02/21/24 [History Confirmed 04/28/24] prostat PO BID 02/21/24 [History Confirmed 04/13/24] gabapentin 100 mg capsule 100 mg PO BID #60 caps 03/23/24 [Rx Confirmed 04/28/24] multivitamin (Daily Multi-Vitamin tablet) 1 tab PO DAILY 03/23/24 [History Confirmed 04/28/24] zinc acetate 50 mg (zinc) capsule (Galzin) 50 mg PO DAILY 03/23/24 [History Confirmed 04/28/24] cephalexin 500 mg capsule 500 mg PO TID 04/13/24 [History Confirmed 04/28/24] aspirin 81 mg tablet,delayed release (Adult Aspirin Regimen) 81 mg PO DAILY 04/29/24 [History Confirmed 04/29/24] loperamide 2 mg capsule (Anti-Diarrheal (loperamide)) 2 mg PO .6hr PRN loose stool 04/29/24 [History Confirmed 04/29/24] rivaroxaban 2.5 mg tablet (Xarelto) 2.5 mg PO BID blood thinner 04/29/24 [History Confirmed 04/29/24] Active Medications Acetaminophen (Acetaminophen 325 Mg Tablet) 650 mg PO Q6H PRN PRN Reason: Pain Scale 1 - 3 Stop: 05/03/25 16:34 Hydrocodone Bitart/Acetaminophen (Hydrocodone/Acetaminophen 5-325 Mg Tablet) 1 tab PO Q6H PRN PRN Reason: Pain Last Admin: 05/04/24 20:35 Dose: 1 tab Albuterol (Albuterol Neb 2.5 Mg/3 Ml Vial.Neb) 2.5 mg INHALATION Q2H PRN PRN Reason: Shortness Of Breath Stop: 04/28/25 14:20 Heparin Sodium (Porcine) (Heparin 5,000 Unit/Ml Vial) 5,000 unit SUBCUT Q12HR DAY Stop: 04/28/25 20:59 Last Admin: 05/04/24 20:37 Dose: 5,000 unit Hydralazine HCl (Hydralazine 20 Mg/Ml Vial) 10 mg IV-PUSH Q4H PRN PRN Reason: if SBP > 185 Stop: 04/28/25 14:20 Last Admin: 05/04/24 04:10 Dose: 10 mg Hydromorphone HCl (Hydromorphone 0.5 Mg/0.5 Ml Syringe) 0.25 mg IV-PUSH Q4H PRN PRN Reason: pain Last Admin: 05/03/24 11:01 Dose: 0.25 mg Nebivolol (Nebivolol 5 Mg Tablet) 10 mg PO DAILY [facility] Stop: 05/04/25 05:19 Last Admin: 05/04/24 09:32 Dose: Not Given Ondansetron HCl (Ondansetron 4 Mg/2 Ml Vial) 4 mg IV-PUSH Q6H PRN PRN Reason: Nausea And Vomiting Stop: 04/29/25 02:25 Last Admin: 04/29/24 03:19 Dose: 4 mg Oxycodone HCl (Oxycodone Ir 5 Mg Tablet) 5 mg PO Q6HR PRN PRN Reason: Moderate Pain Pantoprazole Sodium (Pantoprazole 40 Mg Tablet.Dr) 40 mg PO DAILY [facility] Stop: 05/05/25 08:59 Spironolactone (Spironolactone 50 Mg Tablet) 50 mg PO DAILY [facility] Stop: 05/04/25 08:59 Last Admin: 05/04/24 10:09 Dose: 50 mg Exam Physical Exam Vital Signs: Temp Pulse Resp BP Pulse Ox O2 Del Method O2 Flow Rate 97.9 F 69 16 166/67 H 93 L Room Air 2 05/05/24 04:05 05/05/24 04:05 05/05/24 04:05 05/05/24 04:05 05/05/24 04:05 05/05/24 04:05 05/04/24 10:30 FiO2 0 05/02/24 23:33 Const General: cooperative, healthy appearing, comfortable and no acute distress Orientation: alert, awake and oriented x3 Resp Effort & Inspection: normal respiratory effort, able to speak in complete sentences and symmetric chest movement Auscultation: clear to auscultation bilaterally, no rales, no rhonchi and no wheezes Cardio Rate: regular rate Rhythm: regular rhythm Pulses: radial pulses present GI Inspection: normal to inspection, non-distended and incision (prevena Vac in place) Palpation: soft, not firm, no guarding, not rigid and nontender Auscultation: normal bowel sounds Neuro General: patient alert, patient awake and patient oriented x3 Psych Attitude: cooperative Thought Content: normal Objective Pain Assessment Abdomen: Pain Description: Acute, Soreness and Pressure Pain Intensity: 2 Intake & Output 24 hour I&O: Intake & Output 05/04/24 05/04/24 05/05/24 15:59 23:59 07:59 Intake Total 480 / 1130 500 / 1130 100 / 100 Output Total 500 / 700 300 / 300 Balance 480 / 430 0 / 430 -200 / -200 Weight 72.6 kg Labs 05/05/24 05:35 05/05/24 05:35 Laboratory Results - Last 48 hrs. 05/05/24 05:35: Corrected WBC 9.3, Uncorrected WBC Count 9.3, RBC 3.18 L, Hgb 9.4 L, Hct 27.6 L, MCV 86.8, MCH 29.5, MCHC 34.0, RDW 15.6 H, Plt Count 280, MPV7.9, Neut % (Auto) 77.1, Lymph % (Auto) 7.7, [place] % (Auto) 9.8, Eos % (Auto) 5.0, Baso % (Auto) 0.4, Nucleat RBC Rel Count 0.0, Neut # (Auto)7.1, Lymph # (Auto) 0.7 L, [place] # (Auto) 0.9 H, Eos # (Auto) 0.5 H, Baso # (Auto) 0.0, PHA Creatinine Clear 39.69, Sodium 138, Potassium 3.9, Chloride 108 H, Carbon Dioxide 25.4, Anion Gap 8.5, BUN 18, Creatinine 1.08, Est GFR (CKD-EPI) 49.715, Glucose 83, Calcium 7.9 L 05/04/24 05:37: Corrected WBC 10.4, Uncorrected WBC Count 10.4, RBC 3.31 L, Hgb 9.7 L, Hct 28.7 L, MCV 86.7, MCH 29.4, MCHC 33.9, RDW 15.4 H, Plt Count 305, MPV7.6, Neut % (Auto) 75.9, Lymph % (Auto)9.7, [place] % (Auto) 9.9, Eos % (Auto) 4.2, Baso % (Auto) 0.3, Nucleat RBC Rel Count 0.0, Neut # (Auto) 7.9 H, Lymph # (Auto) 1.0, [place] # (Auto) 1.0 H, Eos # (Auto) 0.4, Baso # (Auto) 0.0, PHA Creatinine Clear 42.86, Sodium 140, Potassium 3.4 L, Chloride 109 H, Carbon Dioxide 24.4, Anion Gap 10.0, BUN 20, Creatinine 1.00, Est GFR (CKD-EPI) 54.525,Glucose 85, Calcium 8.1 L, Total Bilirubin 0.7, AST 13, ALT 9, Alkaline Phosphatase 17 L, Total Protein 5.0 L, Albumin 2.8 L, Globulin 2.2, Albumin/Globulin Ratio 1.3 A&P - General Surgery Assessment/Plan (1) Status post small bowel resection: (2) Bowel obstruction: Qualifiers: Intestinal obstruction type: other intestinal obstruction Intestinal obstruction extent: unspecified extent Qualified Code(s): K56.699 - Other intestinal obstruction unspecified as to partial versus complete obstruction (3) Chronic colitis: Plan Okay to discharge from surgery standpoint. Can discontinue Prevena VAC. Documented By: Tyrese Girard MD 05/05/24 0756 Signed By: 05/05/24 0839 [facility]03-27-2025 Progress note Author Dereje Gil [facility] Note Date/Time May 04, 2024 6:4 2pm [facility] [address] [place] [address] Hospitalist Progress Note Signed Patient: Sage Hsu MR#: [id number] : 1935 Acct:[id number] Age/Sex: 88 / F Adm Date: 5 Loc: Room: [address] [place] [address] Type: ADM IN Attending Dr: Dereje Gil MD Copies to: ~ Date of Service: 05/04/2024 Subjective Subjective Narrative: Reportedly had some difficulty with p.o. intake last night, complaining of some abdominal cramping after some liquids. Diet was not advanced further as a result. Feeling reasonably well at this time during my assessment of her in thelate afternoon. She will attempt to have some spaghetti for dinner, and will see how she can handle it. Diet was advanced today per general surgery. She ispassing flatus and has not quite had a full bowel movement, but some smears of stool. Exam Physical Exam Vital Signs: Temp Pulse Resp BP Pulse Ox O2 Del Method O2 Flow Rate 97.3 F L 62 16 165/63 H 97 Room Air 2 05/04/24 15:52 05/04/24 15:52 05/04/24 15:52 05/04/24 15:52 05/04/24 15:52 05/04/24 15:52 05/04/24 10:30 FiO2 0 05/02/24 23:33 Narrative: Constitutional: Frail, elderly WF, resting in chair at bedside HEENT: No NG tube in place, resting comfortably Cardiovascular: RRR, no M/R/G, normal S1 and S2 Respiratory: Clear to auscultation bilaterally, no wheezes, rales or rhonchi GI: Soft, mildly tender to palpation. Wound VAC in place. Hypoactive bowel sounds. No rebound tenderness or guarding : Deferred Extremities: No clubbing, cyanosis or edema Neuro: AAOx3, patient awake, able to follow commands, answer questions without difficulty. Skin: Anterior wound area covered with wound VAC at this time. Belly is soft, diffusely tender to moderate palpation Psych: Affect is improved today Objective Lab Results 05/04/24 05:37 05/04/24 05:37 Microbiology Results Microbiology 04/28/24 14:05 Blood - Right Antecubital Blood Culture - Final NO GROWTH 5 DAYS 04/28/24 14:13 Blood - Right Antecubital Blood Culture - Final NO GROWTH 5 DAYS Meds Allergies and Active Meds Allergies Penicillins Allergy (Severe, Verified 04/13/24 14:59) Rash levofloxacin Allergy (Unknown, Verified 04/13/24 14:59) shaking promethazine (From Phenergan) Allergy (Unknown, Verified 04/13/24 14:59) Vomiting, anaphylaxis ezetimibe Allergy (Verified 04/13/24 14:59) Unknown Reaction gemfibrozil Allergy (Verified 04/13/24 14:59) Unknown Reaction Histamine H2 Inhibitors Allergy (Verified 04/13/24 14:59) Unknown Reaction propoxyphene Allergy (Verified 04/13/24 14:59) Unknown Reaction Antihistamine Allergy (Unknown, Uncoded 05/21/23 09:56) Unknown Reaction Active Meds: Active Medications Generic Name Dose Route Start Last Admin Trade Name Freq PRN Reason Stop Dose Admin Acetaminophen 650 mg 05/03/24 16:35 Acetaminophen 325 Mg Tablet PO 05/03/25 16:34 Q6H PRN Pain Scale 1 - 3 Hydrocodone Bitart/Acetaminophen 1 tab 05/03/24 16:32 05/04/24 10:57 Hydrocodone/Acetaminophen 5-325 Mg Tablet PO 1 tab Q6H PRN Administration Pain Albuterol 2.5 mg 04/28/24 14:21 Albuterol Neb 2.5 Mg/3 Ml Vial.Neb INHALATION 04/28/25 14:20 Q2H PRN Shortness Of Breath Heparin Sodium (Porcine) 5,000 unit 04/28/24 21:00 05/04/24 10:09 Heparin 5,000 Unit/Ml Vial SUBCUT 04/28/25 20:59 5,000 unit Q12HR DAY Administration Hydralazine HCl 10 mg 04/28/24 14:21 05/04/24 04:10 Hydralazine 20 Mg/Ml Vial IV-PUSH 04/28/25 14:20 10 mg Q4H PRN Administration if SBP > 185 Hydromorphone HCl 0.25 mg 04/29/24 03:25 05/03/24 11:01 Hydromorphone 0.5 Mg/0.5 Ml Syringe IV-PUSH 0.25 mg Q4H PRN Administration pain Nebivolol 10 mg 05/04/24 05:20 05/04/24 09:32 Nebivolol 5 Mg Tablet PO 05/04/25 05:19 Not Given DAILY DAY Ondansetron HCl 4 mg 04/29/24 02:26 04/29/24 03:19 Ondansetron 4 Mg/2 Ml Vial IV-PUSH 04/29/25 02:25 4 mg Q6H PRN Administration Nausea And Vomiting Oxycodone HCl 5 mg 05/03/24 16:35 Oxycodone Ir 5 Mg Tablet PO Q6HR PRN Moderate Pain Pantoprazole Sodium 40 mg 05/05/24 09:00 Pantoprazole 40 Mg Tablet. PO 05/05/25 08:59 DAILY DAY Spironolactone 50 mg 05/04/24 09:00 05/04/24 10:09 Spironolactone 50 Mg Tablet PO 05/04/25 08:59 50 mg DAILY DAY Administration A&P - Hospitalist Assessment/Plan (1) Hypertension: Plan # Small bowel obstruction with previous history of complicated cholecystectomy, history of hysterectomy Pt is POD#5 status-post exploratory laparotomy with lysis of adhesions and smallbowel resection with removal of mesh on April 29, 2024 Improved. Doing quite well clinically. WBC has resolved and patient has no evidence of acute infection at this time. NG tube removed and patient is tolerating p.o. diet. Did have some GI complaints yesterday and thus we will ensure that patient has adequate p.o. intake before discharge -Post-operative management per general surgery -Will advance diet per general surgery recommendations -Plan for likely discharge tomorrow # Acute kidney injury on chronic kidney disease stage III Improving. creatinine is now improved below patient's baseline. -Continue maintenance fluids at 75 cc/h until eating a significant amount -Monitor BMP closely # Coronary artery disease s/p CABG in 1998 Status-post stress test in 2023 before right lower extremity femoral-popliteal bypass Denies any symptoms such as chest pain shortness of breath EKG normal sinus with right bundle branch block no ischemic findings -Monitor on telemetry # Hypertension-Patient n.p.o. with NG tube in place, hold on any antihypertensives for now, given no p.o intake # Microscopic colitis, does not need IV steroids # Previous history of C. difficile colitis- Will hold on further antibiotics # DVT prophylaxis: heparin subQ # CODE STATUS: Full Code Documented By: Dereje Gil MD 5 1708 Signed By: <Electronically signed by Dereje Gil MD> 05/04/24 9859 [facility] Work Phone: [phone] [place] [address] Hospitalist Progress Note Signed Patient: Sage Hsu MR#: [id number] : 1935 Acct:[id number] Age/Sex: 88 / F Adm Date: 5 Loc: 4N Room: 8M1761-0 Type: ADM IN Attending Dr: Dereje Gil MD Copies to: ~ Date of Service: 05/04/2024 Subjective Subjective Narrative: Reportedly had some difficulty with p.o. intake last night, complaining of some abdominal cramping after some liquids. Diet was not advanced further as a result. Feeling reasonably well at this time during my assessment of her in thelate afternoon. She will attempt to have some spaghetti for dinner, and will see how she can handle it. Diet was advanced today per general surgery. She ispassing flatus and has not quite had a full bowel movement, but some smears of stool. Exam Physical Exam Vital Signs: Temp Pulse Resp BP Pulse Ox O2 Del Method O2 Flow Rate 97.3 F L 62 16 165/63 H 97 Room Air 2 05/04/24 15:52 05/04/24 15:52 05/04/24 15:52 05/04/24 15:52 05/04/24 15:52 05/04/24 15:52 05/04/24 10:30 FiO2 0 05/02/24 23:33 Narrative: Constitutional: Frail, elderly WF, resting in chair at bedside HEENT: No NG tube in place, resting comfortably Cardiovascular: RRR, no M/R/G, normal S1 and S2 Respiratory: Clear to auscultation bilaterally, no wheezes, rales or rhonchi GI: Soft, mildly tender to palpation. Wound VAC in place. Hypoactive bowel sounds. No rebound tenderness or guarding : Deferred Extremities: No clubbing, cyanosis or edema Neuro: AAOx3, patient awake, able to follow commands, answer questions without difficulty. Skin: Anterior wound area covered with wound VAC at this time. Belly is soft, diffusely tender to moderate palpation Psych: Affect is improved today Objective Lab Results 05/04/24 05:37 05/04/24 05:37 Microbiology Results Microbiology 04/28/24 14:05 Blood - Right Antecubital Blood Culture - Final NO GROWTH 5 DAYS 04/28/24 14:13 Blood - Right Antecubital Blood Culture - Final NO GROWTH 5 DAYS Meds Allergies and Active Meds Allergies Penicillins Allergy (Severe, Verified 04/13/24 14:59) Rash levofloxacin Allergy (Unknown, Verified 04/13/24 14:59) shaking promethazine (From Phenergan) Allergy (Unknown, Verified 04/13/24 14:59) Vomiting, anaphylaxis ezetimibe Allergy (Verified 04/13/24 14:59) Unknown Reaction gemfibrozil Allergy (Verified 04/13/24 14:59) Unknown Reaction Histamine H2 Inhibitors Allergy (Verified 04/13/24 14:59) Unknown Reaction propoxyphene Allergy (Verified 04/13/24 14:59) Unknown Reaction Antihistamine Allergy (Unknown, Uncoded 05/21/23 09:56) Unknown Reaction Active Meds: Active Medications Generic Name Dose Route Start Last Admin Trade Name Freq PRN Reason Stop Dose Admin Acetaminophen 650 mg 05/03/24 16:35 Acetaminophen 325 Mg Tablet PO 05/03/25 16:34 Q6H PRN Pain Scale 1 - 3 Hydrocodone Bitart/Acetaminophen 1 tab 05/03/24 16:32 05/04/24 10:57 Hydrocodone/Acetaminophen 5-325 Mg Tablet PO 1 tab Q6H PRN Administration Pain Albuterol 2.5 mg 04/28/24 14:21 Albuterol Neb 2.5 Mg/3 Ml Vial.Neb INHALATION 04/28/25 14:20 Q2H PRN Shortness Of Breath Heparin Sodium (Porcine) 5,000 unit 04/28/24 21:00 05/04/24 10:09 Heparin 5,000 Unit/Ml Vial SUBCUT 04/28/25 20:59 5,000 unit Q12HR DAY Administration Hydralazine HCl 10 mg 04/28/24 14:21 05/04/24 04:10 Hydralazine 20 Mg/Ml Vial IV-PUSH 04/28/25 14:20 10 mg Q4H PRN Administration if SBP > 185 Hydromorphone HCl 0.25 mg 04/29/24 03:25 05/03/24 11:01 Hydromorphone 0.5 Mg/0.5 Ml Syringe IV-PUSH 0.25 mg Q4H PRN Administration pain Nebivolol 10 mg 05/04/24 05:20 05/04/24 09:32 Nebivolol 5 Mg Tablet PO 05/04/25 05:19 Not Given DAILY DAY Ondansetron HCl 4 mg 04/29/24 02:26 04/29/24 03:19 Ondansetron 4 Mg/2 Ml Vial IV-PUSH 04/29/25 02:25 4 mg Q6H PRN Administration Nausea And Vomiting Oxycodone HCl 5 mg 05/03/24 16:35 Oxycodone Ir 5 Mg Tablet PO Q6HR PRN Moderate Pain Pantoprazole Sodium 40 mg 05/05/24 09:00 Pantoprazole 40 Mg Tablet. PO 05/05/25 08:59 DAILY DAY Spironolactone 50 mg 05/04/24 09:00 05/04/24 10:09 Spironolactone 50 Mg Tablet PO 05/04/25 08:59 50 mg DAILY DAY Administration A&P - Hospitalist Assessment/Plan (1) Hypertension: Plan # Small bowel obstruction with previous history of complicated cholecystectomy, history of hysterectomy Pt is POD#5 status-post exploratory laparotomy with lysis of adhesions and smallbowel resection with removal of mesh on April 29, 2024 Improved. Doing quite well clinically. WBC has resolved and patient has no evidence of acute infection at this time. NG tube removed and patient is tolerating p.o. diet. Did have some GI complaints yesterday and thus we will ensure that patient has adequate p.o. intake before discharge -Post-operative management per general surgery -Will advance diet per general surgery recommendations -Plan for likely discharge tomorrow # Acute kidney injury on chronic kidney disease stage III Improving. creatinine is now improved below patient's baseline. -Continue maintenance fluids at 75 cc/h until eating a significant amount -Monitor BMP closely # Coronary artery disease s/p CABG in 1998 Status-post stress test in 2023 before right lower extremity femoral-popliteal bypass Denies any symptoms such as chest pain shortness of breath EKG normal sinus with right bundle branch block no ischemic findings -Monitor on telemetry # Hypertension-Patient n.p.o. with NG tube in place, hold on any antihypertensives for now, given no p.o intake # Microscopic colitis, does not need IV steroids # Previous history of C. difficile colitis- Will hold on further antibiotics # DVT prophylaxis: heparin subQ # CODE STATUS: Full Code Documented By: Dereje Gil MD 5 1708 Signed By: 05/04/24 [facility]03-27-2025 Progress note Author Tyrese Girard [facility] Note Date/Time May 04, 2024 4:2 5pm [facility] [address] [place] [address] General Surgery Progress Note Signed Patient: Sage Hsu MR#: [id number] : 1935 Acct:[id number] Age/Sex: 88 / F Adm Date: 5 Loc: 4 Room: [address] [place] [address] Type: ADM IN Attending Dr: Dereje Gil MD Copies to: ~ Date of Service: 05/04/2024 Subjective Subjective Patient reports: no new complaints, feels better, tolerating liquids well, flatus, no bowel movement and afebrile HPI: Patient 88 year old female, is on post op day 5 for Exploratory laparotomy, Lysis of adhesions,Small bowel resection,Removal of mesh. Patient is awake and responsive. She denies fever, nausea, vomiting. Denies any abdominal pain. Woundvac in place. Working with physical therapy. Tolerated liquids. Patient has had flatulence. She had a small bowel movement Vital signs Stable WBC: 10.4 H and H stable: 9.7 and 28.7 Hypertensive Allergies & Medications Medications and Allergies Allergies Penicillins Allergy (Severe, Verified 04/13/24 14:59) Rash levofloxacin Allergy (Unknown, Verified 04/13/24 14:59) shaking promethazine (From Phenergan) Allergy (Unknown, Verified 04/13/24 14:59) Vomiting, anaphylaxis ezetimibe Allergy (Verified 04/13/24 14:59) Unknown Reaction gemfibrozil Allergy (Verified 04/13/24 14:59) Unknown Reaction Histamine H2 Inhibitors Allergy (Verified 04/13/24 14:59) Unknown Reaction propoxyphene Allergy (Verified 04/13/24 14:59) Unknown Reaction Antihistamine Allergy (Unknown, Uncoded 05/21/23 09:56) Unknown Reaction Home Medications cholecalciferol (vitamin D3) 50 mcg (2,000 unit) tablet (Vitamin D3) 2,000 unit PO DAILY 12/06/17 [History Confirmed 04/28/24] Lactobacillus acidophilus-Bifidobac.animalis 2.5 billion cell capsule (Daily Probiotic) 1 cap PO DAILY 04/15/23 [History Confirmed 04/28/24] clopidogrel 75 mg tablet 75 mg PO DAILY 04/15/23 [History Confirmed 04/28/24] estradiol 0.01% (0.1 mg/gram) vaginal cream See Rx Instructions .Route .COMPLEX #42.5 grams 04/26/23 [Rx Confirmed 04/29/24] bismuth subsalicylate 262 mg/15 mL oral suspension (Pepto-Bismol) 524 mg PO Q30- 60M PRN diarrhea 05/21/23 [History Confirmed 04/28/24] pantoprazole 20 mg tablet,delayed release 20 mg PO DAILY #90 tabs 08/09/23 [Rx Confirmed 04/28/24] simvastatin 40 mg tablet 40 mg PO DAILY 08/24/23 [History Confirmed 04/28/24] budesonide 3 mg capsule,delayed,extended release 3 mg PO DAILY #90 ea 09/22/23 [Rx Confirmed 04/28/24] spironolactone 50 mg tablet See Rx Instructions .Route .COMPLEX #90 tabs 10/13/23 [Rx Confirmed 04/28/24] ascorbic acid (vitamin C) 250 mg tablet 250 mg PO BID 02/21/24 [History Confirmed 04/29/24] melatonin 3 mg capsule 6 mg PO QHS PRN sleep 02/21/24 [History Confirmed 04/28/24] nebivolol 5 mg tablet 10 mg PO DAILY 02/21/24 [History Confirmed 04/28/24] prostat PO BID 02/21/24 [History Confirmed 04/13/24] gabapentin 100 mg capsule 100 mg PO BID #60 caps 03/23/24 [Rx Confirmed 04/28/24] multivitamin (Daily Multi-Vitamin tablet) 1 tab PO DAILY 03/23/24 [History Confirmed 04/28/24] zinc acetate 50 mg (zinc) capsule (Galzin) 50 mg PO DAILY 03/23/24 [History Confirmed 04/28/24] cephalexin 500 mg capsule 500 mg PO TID 04/13/24 [History Confirmed 04/28/24] aspirin 81 mg tablet,delayed release (Adult Aspirin Regimen) 81 mg PO DAILY 04/29/24 [History Confirmed 04/29/24] loperamide 2 mg capsule (Anti-Diarrheal (loperamide)) 2 mg PO .6hr PRN loose stool 04/29/24 [History Confirmed 04/29/24] rivaroxaban 2.5 mg tablet (Xarelto) 2.5 mg PO BID blood thinner 04/29/24 [History Confirmed 04/29/24] Active Medications Acetaminophen (Acetaminophen 325 Mg Tablet) 650 mg PO Q6H PRN PRN Reason: Pain Scale 1 - 3 Stop: 05/03/25 16:34 Hydrocodone Bitart/Acetaminophen (Hydrocodone/Acetaminophen 5-325 Mg Tablet) 1 tab PO Q6H PRN PRN Reason: Pain Last Admin: 05/04/24 05:52 Dose: 1 tab Albuterol (Albuterol Neb 2.5 Mg/3 Ml Vial.Neb) 2.5 mg INHALATION Q2H PRN PRN Reason: Shortness Of Breath Stop: 04/28/25 14:20 Heparin Sodium (Porcine) (Heparin 5,000 Unit/Ml Vial) 5,000 unit SUBCUT Q12HR DAY Stop: 04/28/25 20:59 Last Admin: 05/03/24 21:24 Dose: 5,000 unit Hydralazine HCl (Hydralazine 20 Mg/Ml Vial) 10 mg IV-PUSH Q4H PRN PRN Reason: if SBP > 185 Stop: 04/28/25 14:20 Last Admin: 05/04/24 04:10 Dose: 10 mg Hydromorphone HCl (Hydromorphone 0.5 Mg/0.5 Ml Syringe) 0.25 mg IV-PUSH Q4H PRN PRN Reason: pain Last Admin: 05/03/24 11:01 Dose: 0.25 mg Nebivolol (Nebivolol 5 Mg Tablet) 10 mg PO DAILY [facility] Stop: 05/04/25 05:19 Last Admin: 05/04/24 05:33 Dose: 10 mg Ondansetron HCl (Ondansetron 4 Mg/2 Ml Vial) 4 mg IV-PUSH Q6H PRN PRN Reason: Nausea And Vomiting Stop: 04/29/25 02:25 Last Admin: 04/29/24 03:19 Dose: 4 mg Oxycodone HCl (Oxycodone Ir 5 Mg Tablet) 5 mg PO Q6HR PRN PRN Reason: Moderate Pain Pantoprazole Sodium (Pantoprazole 40 Mg Vial) 40 mg IV-PUSH DAILY [facility] Stop: 04/29/25 08:59 Last Admin: 05/03/24 10:16 Dose: 40 mg Sodium Chloride (Sodium Chloride 0.9 % 10 Ml Vial.Pf) 10 ml INJECTION PRN PRN PRN Reason: Dilution Stop: 04/28/25 14:32 Last Admin: 05/03/24 10:16 Dose: 10 ml Spironolactone (Spironolactone 50 Mg Tablet) 50 mg PO DAILY [facility] Stop: 05/04/25 08:59 Exam Physical Exam Vital Signs: Temp Pulse Resp BP Pulse Ox O2 Del Method O2 Flow Rate 98.4 F 79 18 203/75 H 95 Room Air 2 05/03/24 20:00 05/04/24 04:07 05/04/24 04:07 05/04/24 05:19 05/04/24 04:07 05/04/24 04:07 05/03/24 08:17 FiO2 0 05/02/24 23:33 Const General: cooperative, healthy appearing, comfortable and no acute distress Orientation: alert, awake and oriented x3 Resp Effort & Inspection: normal respiratory effort, able to speak in complete sentences, symmetric chest movement, no audible wheezes and no cough Auscultation: clear to auscultation bilaterally, no crackles, no rales, no rhonchi and no wheezes Cardio Rate: regular rate Rhythm: regular rhythm Pulses: radial pulses present GI Inspection: incision (prevena vac in place) Palpation: soft, not firm, not rigid and nontender Auscultation: normal bowel sounds Neuro General: patient alert, patient awake and patient oriented x3 Speech: speech normal Extrem General: no pedal edema and no calf tenderness Psych Affect: normal affect Attitude: cooperative Thought Process: normal Objective Pain Assessment Abdomen: Pain Description: Constant and Pressure Pain Intensity: 1 Intake & Output 24 hour I&O: Intake & Output 05/03/24 05/03/24 05/04/24 15:59 23:59 07:59 Intake Total 300 / 750 350 / 750 150 / 150 Output Total 450 / 950 200 / 950 200 / 200 Balance -150 / -200 150 / -200 -50 / -50 Weight 72 kg Labs 05/04/24 05:37 05/04/24 05:37 Laboratory Results - Last 48 hrs. 05/03/24 04:43: Corrected WBC 9.9, Uncorrected WBC Count 9.9, RBC 3.02 L, Hgb 8.9 L, Hct 26.4 L, MCV 87.4, MCH 29.5, MCHC 33.8, RDW 15.3, Plt Count 302, MPV 7.7, Neut % (Auto) 81.5, Lymph % (Auto) 6.2, [place] % (Auto) 10.2, Eos % (Auto) 2.0, Baso % (Auto) 0.1, Nucleat RBC Rel Count 0.0, Neut # (Auto) 8.1 H, Lymph # (Auto) 0.6 L, [place] # (Auto) 1.0 H, Eos # (Auto) 0.2, Baso # (Auto) 0.0, PHA Creatinine Clear 39.69, Sodium 139, Potassium 3.5, Chloride 111 H, Carbon Dioxide 24.2, Anion Gap 7.3, BUN 26 H, Creatinine 1.08, Est GFR (CKD-EPI) 49.715, Glucose 86, Calcium 7.8 L, Total Bilirubin 0.6, AST 14, ALT 9, Alkaline Phosphatase 15 L, Total Protein 4.6 L, Albumin 2.7 L, Globulin 1.9, Albumin/Globulin Ratio 1.4 05/02/24 09:19: POC Glucose 71 05/02/24 05:10: Corrected WBC 11.0, Uncorrected WBC Count 11.0, RBC 3.12 L, Hgb 9.3 L, Hct 27.5 L, MCV 88.1, MCH 30.0, MCHC 34.0, RDW 15.4 H, Plt Count 289, MPV7.7, Neut % (Auto) 84.4, Lymph % (Auto) 5.5, [place] % (Auto) 8.8, Eos % (Auto) 1.2, Baso % (Auto) 0.1, Nucleat RBC Rel Count 0.0, Neut # (Auto) 9.3 H, Lymph # (Auto) 0.6 L, [place] # (Auto) 1.0 H, Eos # (Auto) 0.1, Baso # (Auto) 0.0, PHA Creatinine Clear 33.75, Sodium 136, Potassium 3.8, Chloride 107, Carbon Dioxide 21.0, Anion Gap 11.8, BUN 35 H, Creatinine 1.27 H, Est GFR (CKD-EPI) 40.930, Glucose 68 L, Calcium 8.0 L, Total Bilirubin 0.5, AST 15, ALT 9, Alkaline Phosphatase 15 L, Total Protein 4.8 L, Albumin 2.8 L, Globulin 2.0, Albumin/Globulin Ratio 1.4 Microbiology Microbiology 04/28/24 14:05 Blood - Right Antecubital Blood Culture - Final NO GROWTH 5 DAYS 04/28/24 14:13 Blood - Right Antecubital Blood Culture - Final NO GROWTH 5 DAYS A&P - General Surgery Assessment/Plan (1) Status post small bowel resection: (2) Bowel obstruction: Qualifiers: Intestinal obstruction type: other intestinal obstruction Intestinal obstruction extent: unspecified extent Qualified Code(s): K56.699 - Other intestinal obstruction unspecified as to partial versus complete obstruction (3) Chronic colitis: Plan Advance diet Increase activity. Continue OT/PT. Continue Prevena VAC. Documented By: Tyrese Girard MD 05/04/24 06 Signed By: <Electronically signed by MD Tyrese Girard> 05/04/24 1620 [facility] Work Phone: [phone]) [phone] [place] [address] General Surgery Progress Note Signed Patient: Sage Hsu MR#: [id number] : 1935 Acct:[id number] Age/Sex: 88 / F Adm Date: 5 Loc: Room: 2P0742-6 Type: ADM IN Attending Dr: Dereje Gil MD Copies to: ~ Date of Service: 05/04/2024 Subjective Subjective Patient reports: no new complaints, feels better, tolerating liquids well, flatus, no bowel movement and afebrile HPI: Patient 88 year old female, is on post op day 5 for Exploratory laparotomy, Lysis of adhesions,Small bowel resection,Removal of mesh. Patient is awake and responsive. She denies fever, nausea, vomiting. Denies any abdominal pain. Woundvac in place. Working with physical therapy. Tolerated liquids. Patient has had flatulence. She had a small bowel movement Vital signs Stable WBC: 10.4 H and H stable: 9.7 and 28.7 Hypertensive Allergies & Medications Medications and Allergies Allergies Penicillins Allergy (Severe, Verified 04/13/24 14:59) Rash levofloxacin Allergy (Unknown, Verified 04/13/24 14:59) shaking promethazine (From Phenergan) Allergy (Unknown, Verified 04/13/24 14:59) Vomiting, anaphylaxis ezetimibe Allergy (Verified 04/13/24 14:59) Unknown Reaction gemfibrozil Allergy (Verified 04/13/24 14:59) Unknown Reaction Histamine H2 Inhibitors Allergy (Verified 04/13/24 14:59) Unknown Reaction propoxyphene Allergy (Verified 04/13/24 14:59) Unknown Reaction Antihistamine Allergy (Unknown, Uncoded 05/21/23 09:56) Unknown Reaction Home Medications cholecalciferol (vitamin D3) 50 mcg (2,000 unit) tablet (Vitamin D3) 2,000 unit PO DAILY 12/06/17 [History Confirmed 04/28/24] Lactobacillus acidophilus-Bifidobac.animalis 2.5 billion cell capsule (Daily Probiotic) 1 cap PO DAILY 04/15/23 [History Confirmed 04/28/24] clopidogrel 75 mg tablet 75 mg PO DAILY 04/15/23 [History Confirmed 04/28/24] estradiol 0.01% (0.1 mg/gram) vaginal cream See Rx Instructions .Route .COMPLEX #42.5 grams 04/26/23 [Rx Confirmed 04/29/24] bismuth subsalicylate 262 mg/15 mL oral suspension (Pepto-Bismol) 524 mg PO Q30- 60M PRN diarrhea 05/21/23 [History Confirmed 04/28/24] pantoprazole 20 mg tablet,delayed release 20 mg PO DAILY #90 tabs 08/09/23 [Rx Confirmed 04/28/24] simvastatin 40 mg tablet 40 mg PO DAILY 08/24/23 [History Confirmed 04/28/24] budesonide 3 mg capsule,delayed,extended release 3 mg PO DAILY #90 ea 09/22/23 [Rx Confirmed 04/28/24] spironolactone 50 mg tablet See Rx Instructions .Route .COMPLEX #90 tabs 10/13/23 [Rx Confirmed 04/28/24] ascorbic acid (vitamin C) 250 mg tablet 250 mg PO BID 02/21/24 [History Confirmed 04/29/24] melatonin 3 mg capsule 6 mg PO QHS PRN sleep 02/21/24 [History Confirmed 04/28/24] nebivolol 5 mg tablet 10 mg PO DAILY 02/21/24 [History Confirmed 04/28/24] prostat PO BID 02/21/24 [History Confirmed 04/13/24] gabapentin 100 mg capsule 100 mg PO BID #60 caps 03/23/24 [Rx Confirmed 04/28/24] multivitamin (Daily Multi-Vitamin tablet) 1 tab PO DAILY 03/23/24 [History Confirmed 04/28/24] zinc acetate 50 mg (zinc) capsule (Galzin) 50 mg PO DAILY 03/23/24 [History Confirmed 04/28/24] cephalexin 500 mg capsule 500 mg PO TID 04/13/24 [History Confirmed 04/28/24] aspirin 81 mg tablet,delayed release (Adult Aspirin Regimen) 81 mg PO DAILY 04/29/24 [History Confirmed 04/29/24] loperamide 2 mg capsule (Anti-Diarrheal (loperamide)) 2 mg PO .6hr PRN loose stool 04/29/24 [History Confirmed 04/29/24] rivaroxaban 2.5 mg tablet (Xarelto) 2.5 mg PO BID blood thinner 04/29/24 [History Confirmed 04/29/24] Active Medications Acetaminophen (Acetaminophen 325 Mg Tablet) 650 mg PO Q6H PRN PRN Reason: Pain Scale 1 - 3 Stop: 05/03/25 16:34 Hydrocodone Bitart/Acetaminophen (Hydrocodone/Acetaminophen 5-325 Mg Tablet) 1 tab PO Q6H PRN PRN Reason: Pain Last Admin: 05/04/24 05:52 Dose: 1 tab Albuterol (Albuterol Neb 2.5 Mg/3 Ml Vial.Neb) 2.5 mg INHALATION Q2H PRN PRN Reason: Shortness Of Breath Stop: 04/28/25 14:20 Heparin Sodium (Porcine) (Heparin 5,000 Unit/Ml Vial) 5,000 unit SUBCUT Q12HR [facility] Stop: 04/28/25 20:59 Last Admin: 05/03/24 21:24 Dose: 5,000 unit Hydralazine HCl (Hydralazine 20 Mg/Ml Vial) 10 mg IV-PUSH Q4H PRN PRN Reason: if SBP > 185 Stop: 04/28/25 14:20 Last Admin: 05/04/24 04:10 Dose: 10 mg Hydromorphone HCl (Hydromorphone 0.5 Mg/0.5 Ml Syringe) 0.25 mg IV-PUSH Q4H PRN PRN Reason: pain Last Admin: 05/03/24 11:01 Dose: 0.25 mg Nebivolol (Nebivolol 5 Mg Tablet) 10 mg PO DAILY [facility] Stop: 05/04/25 05:19 Last Admin: 05/04/24 05:33 Dose: 10 mg Ondansetron HCl (Ondansetron 4 Mg/2 Ml Vial) 4 mg IV-PUSH Q6H PRN PRN Reason: Nausea And Vomiting Stop: 04/29/25 02:25 Last Admin: 04/29/24 03:19 Dose: 4 mg Oxycodone HCl (Oxycodone Ir 5 Mg Tablet) 5 mg PO Q6HR PRN PRN Reason: Moderate Pain Pantoprazole Sodium (Pantoprazole 40 Mg Vial) 40 mg IV-PUSH DAILY DAY Stop: 04/29/25 08:59 Last Admin: 05/03/24 10:16 Dose: 40 mg Sodium Chloride (Sodium Chloride 0.9 % 10 Ml Vial.Pf) 10 ml INJECTION PRN PRN PRN Reason: Dilution Stop: 04/28/25 14:32 Last Admin: 05/03/24 10:16 Dose: 10 ml Spironolactone (Spironolactone 50 Mg Tablet) 50 mg PO DAILY [facility] Stop: 05/04/25 08:59 Exam Physical Exam Vital Signs: Temp Pulse Resp BP Pulse Ox O2 Del Method O2 Flow Rate 98.4 F 79 18 203/75 H 95 Room Air 2 05/03/24 20:00 05/04/24 04:07 05/04/24 04:07 05/04/24 05:19 05/04/24 04:07 05/04/24 04:07 05/03/24 08:17 FiO2 0 05/02/24 23:33 Const General: cooperative, healthy appearing, comfortable and no acute distress Orientation: alert, awake and oriented x3 Resp Effort & Inspection: normal respiratory effort, able to speak in complete sentences, symmetric chest movement, no audible wheezes and no cough Auscultation: clear to auscultation bilaterally, no crackles, no rales, no rhonchi and no wheezes Cardio Rate: regular rate Rhythm: regular rhythm Pulses: radial pulses present GI Inspection: incision (prevena vac in place) Palpation: soft, not firm, not rigid and nontender Auscultation: normal bowel sounds Neuro General: patient alert, patient awake and patient oriented x3 Speech: speech normal Extrem General: no pedal edema and no calf tenderness Psych Affect: normal affect Attitude: cooperative Thought Process: normal Objective Pain Assessment Abdomen: Pain Description: Constant and Pressure Pain Intensity: 1 Intake & Output 24 hour I&O: Intake & Output 05/03/24 05/03/24 05/04/24 15:59 23:59 07:59 Intake Total 300 / 750 350 / 750 150 / 150 Output Total 450 / 950 200 / 950 200 / 200 Balance -150 / -200 150 / -200 -50 / -50 Weight 72 kg Labs 05/04/24 05:37 05/04/24 05:37 Laboratory Results - Last 48 hrs. 05/03/24 04:43: Corrected WBC 9.9, Uncorrected WBC Count 9.9, RBC 3.02 L, Hgb 8.9 L, Hct 26.4 L, MCV 87.4, MCH 29.5, MCHC 33.8, RDW 15.3, Plt Count 302, MPV 7.7, Neut % (Auto) 81.5, Lymph % (Auto) 6.2, [place] % (Auto) 10.2, Eos % (Auto) 2.0, Baso % (Auto) 0.1, Nucleat RBC Rel Count 0.0, Neut # (Auto)8.1 H, Lymph # (Auto) 0.6 L, [place] # (Auto) 1.0 H, Eos # (Auto) 0.2, Baso # (Auto) 0.0, PHA Creatinine Clear 39.69, Sodium 139, Potassium 3.5, Chloride 111 H, Carbon Dioxide 24.2, Anion Gap 7.3, BUN 26 H, Creatinine 1.08, Est GFR (CKD-EPI) 49.715, Glucose 86, Calcium 7.8 L, Total Bilirubin 0.6, AST 14, ALT 9, Alkaline Phosphatase 15 L, Total Protein 4.6 L, Albumin 2.7 L, Globulin 1.9, Albumin/Globulin Ratio 1.4 05/02/24 09:19: POC Glucose 71 05/02/24 05:10: Corrected WBC 11.0, Uncorrected WBC Count 11.0, RBC 3.12 L, Hgb 9.3 L, Hct 27.5 L, MCV 88.1, MCH 30.0, MCHC 34.0, RDW 15.4 H, Plt Count 289, MPV7.7, Neut % (Auto) 84.4, Lymph % (Auto)5.5, [place] % (Auto) 8.8, Eos % (Auto) 1.2, Baso % (Auto) 0.1, Nucleat RBC Rel Count 0.0, Neut # (Auto) 9.3 H, Lymph # (Auto) 0.6 L, [place] # (Auto) 1.0 H, Eos # (Auto) 0.1, Baso # (Auto) 0.0, PHA Creatinine Clear 33.75, Sodium 136, Potassium 3.8, Chloride 107, Carbon Dioxide 21.0, Anion Gap 11.8, BUN 35 H, Creatinine 1.27 H, Est GFR (CKD-EPI) 40.930, Glucose 68 L, Calcium 8.0 L, Total Bilirubin 0.5,AST 15, ALT 9, Alkaline Phosphatase 15 L, Total Protein 4.8 L, Albumin 2.8 L, Globulin 2.0, Albumin/ Globulin Ratio 1.4 Microbiology Microbiology 04/28/24 14:05 Blood - Right Antecubital Blood Culture - Final NO GROWTH 5 DAYS 04/28/24 14:13 Blood - Right Antecubital Blood Culture - Final NO GROWTH 5 DAYS A&P - General Surgery Assessment/Plan (1) Status post small bowel resection: (2) Bowel obstruction: Qualifiers: Intestinal obstruction type: other intestinal obstruction Intestinal obstruction extent: unspecified extent Qualified Code(s): K56.699 - Other intestinal obstruction unspecified as to partial versus complete obstruction (3) Chronic colitis: Plan Advance diet Increase activity. Continue OT/PT. Continue Prevena VAC. Documented By: Tyrese Girard MD 05/04/24 0611 Signed By: 05/04/[address] [place], [place] [id number] Progress note Author Tyrese Girard [facility] Note Date/Time May 03, 2024 4:0 9pm [facility] [address] [place] [address] General Surgery Progress Note Signed Patient: Sage Hsu MR#: [id number] : 1935 Acct:[id number] Age/Sex: 88 / F Adm Date: 5 Loc: Room: [address] [place] [address] Type: ADM IN Attending Dr: Dereje Gil MD Copies to: ~ Date of Service: 05/03/2024 Subjective Subjective Patient reports: no new complaints, feels better, tolerating liquids well and tolerating a regular diet (soft) HPI: HPI: Patient 88 year old female, is on post op day 4 for Exploratory laparotomy, Lysis of adhesions,Small bowel resection,Removal of mesh. Patient is awake and responsive. She denies fever, nausea, vomiting. Patient continues to have pain at her wound site, particularly when she coughs. Wound vac in place. Working with physical therapy. Tolerated soft diet and liquids. Patient has had flatulence but has not had a bowel movement WBC :9.9 HgB :8.9 and Hct 36.4 Vital signs Stable Hypertensive Allergies & Medications Medications and Allergies Allergies Penicillins Allergy (Severe, Verified 04/13/24 14:59) Rash levofloxacin Allergy (Unknown, Verified 04/13/24 14:59) shaking promethazine (From Phenergan) Allergy (Unknown, Verified 04/13/24 14:59) Vomiting, anaphylaxis ezetimibe Allergy (Verified 04/13/24 14:59) Unknown Reaction gemfibrozil Allergy (Verified 04/13/24 14:59) Unknown Reaction Histamine H2 Inhibitors Allergy (Verified 04/13/24 14:59) Unknown Reaction propoxyphene Allergy (Verified 04/13/24 14:59) Unknown Reaction Antihistamine Allergy (Unknown, Uncoded 05/21/23 09:56) Unknown Reaction Home Medications cholecalciferol (vitamin D3) 50 mcg (2,000 unit) tablet (Vitamin D3) 2,000 unit PO DAILY 12/06/17 [History Confirmed 04/28/24] Lactobacillus acidophilus-Bifidobac.animalis 2.5 billion cell capsule (Daily Probiotic) 1 cap PO DAILY 04/15/23 [History Confirmed 04/28/24] clopidogrel 75 mg tablet 75 mg PO DAILY 04/15/23 [History Confirmed 04/28/24] estradiol 0.01% (0.1 mg/gram) vaginal cream See Rx Instructions .Route .COMPLEX #42.5 grams 04/26/23 [Rx Confirmed 04/29/24] bismuth subsalicylate 262 mg/15 mL oral suspension (Pepto-Bismol) 524 mg PO Q30- 60M PRN diarrhea 05/21/23 [History Confirmed 04/28/24] pantoprazole 20 mg tablet,delayed release 20 mg PO DAILY #90 tabs 08/09/23 [Rx Confirmed 04/28/24] simvastatin 40 mg tablet 40 mg PO DAILY 08/24/23 [History Confirmed 04/28/24] budesonide 3 mg capsule,delayed,extended release 3 mg PO DAILY #90 ea 09/22/23 [Rx Confirmed 04/28/24] spironolactone 50 mg tablet See Rx Instructions .Route .COMPLEX #90 tabs 10/13/23 [Rx Confirmed 04/28/24] ascorbic acid (vitamin C) 250 mg tablet 250 mg PO BID 02/21/24 [History Confirmed 04/29/24] melatonin 3 mg capsule 6 mg PO QHS PRN sleep 02/21/24 [History Confirmed 04/28/24] nebivolol 5 mg tablet 10 mg PO DAILY 02/21/24 [History Confirmed 04/28/24] prostat PO BID 02/21/24 [History Confirmed 04/13/24] gabapentin 100 mg capsule 100 mg PO BID #60 caps 03/23/24 [Rx Confirmed 04/28/24] multivitamin (Daily Multi-Vitamin tablet) 1 tab PO DAILY 03/23/24 [History Confirmed 04/28/24] zinc acetate 50 mg (zinc) capsule (Galzin) 50 mg PO DAILY 03/23/24 [History Confirmed 04/28/24] cephalexin 500 mg capsule 500 mg PO TID 04/13/24 [History Confirmed 04/28/24] aspirin 81 mg tablet,delayed release (Adult Aspirin Regimen) 81 mg PO DAILY 04/29/24 [History Confirmed 04/29/24] loperamide 2 mg capsule (Anti-Diarrheal (loperamide)) 2 mg PO .6hr PRN loose stool 04/29/24 [History Confirmed 04/29/24] rivaroxaban 2.5 mg tablet (Xarelto) 2.5 mg PO BID blood thinner 04/29/24 [History Confirmed 04/29/24] Active Medications Albuterol (Albuterol Neb 2.5 Mg/3 Ml Vial.Neb) 2.5 mg INHALATION Q2H PRN PRN Reason: Shortness Of Breath Stop: 04/28/25 14:20 Heparin Sodium (Porcine) (Heparin 5,000 Unit/Ml Vial) 5,000 unit SUBCUT Q12HR DAY Stop: 04/28/25 20:59 Last Admin: 05/02/24 21:34 Dose: 5,000 unit Hydralazine HCl (Hydralazine 20 Mg/Ml Vial) 10 mg IV-PUSH Q4H PRN PRN Reason: if SBP > 185 Stop: 04/28/25 14:20 Last Admin: 05/02/24 17:19 Dose: 10 mg Hydromorphone HCl (Hydromorphone 0.5 Mg/0.5 Ml Syringe) 0.25 mg IV-PUSH Q4H PRN PRN Reason: pain Last Admin: 05/03/24 03:49 Dose: 0.25 mg Sodium Chloride (0.9% Sodium Chloride 1,000 Ml) 1,000 mls @ 75 mls/hr IV .[id number] [facility] Stop: 04/29/25 16:16 Last Admin: 05/02/24 13:07 Dose: Not Given Ondansetron HCl (Ondansetron 4 Mg/2 Ml Vial) 4 mg IV-PUSH Q6H PRN PRN Reason: Nausea And Vomiting Stop: 04/29/25 02:25 Last Admin: 04/29/24 03:19 Dose: 4 mg Pantoprazole Sodium (Pantoprazole 40 Mg Vial) 40 mg IV-PUSH DAILY [facility] Stop: 04/29/25 08:59 Last Admin: 05/02/24 08:47 Dose: 40 mg Sodium Chloride (Sodium Chloride 0.9 % 10 Ml Vial.Pf) 10 ml INJECTION PRN PRN PRN Reason: Dilution Stop: 04/28/25 14:32 Last Admin: 04/30/24 08:04 Dose: 10 ml Exam Physical Exam Vital Signs: Temp Pulse Resp BP Pulse Ox O2 Del Method O2 Flow Rate 97.9 F 74 16 180/70 H 96 Nasal Cannula 2 05/03/24 03:40 05/03/24 03:40 05/03/24 03:40 05/03/24 03:40 05/03/24 03:40 05/03/24 03:40 05/03/24 03:40 FiO2 0 05/02/24 23:33 Const General: cooperative, healthy appearing and comfortable Orientation: alert, awake and oriented x3 Eyes Conjunctivae: conjunctivae normal Sclera: sclerae normal (aniteric) Resp Effort & Inspection: normal respiratory effort, able to speak in complete sentences, symmetric chest movement and no audible wheezes Auscultation: clear to auscultation bilaterally, no rales, no rhonchi and no wheezes Cardio Rate: regular rate Rhythm: regular rhythm Pulses: radial pulses present GI Inspection: normal to inspection Palpation: soft, not firm, no guarding, not rigid and nontender Auscultation: normal bowel sounds Other: Prevena Vac in place Neuro General: patient alert, patient awake and patient oriented x3 Extrem General: no calf tenderness bilaterally Psych Appearance: grossly normal Attitude: cooperative Objective Pain Assessment Abdomen: Pain Intensity: 0 Intake & Output 24 hour I&O: Intake & Output 05/02/24 05/02/24 05/03/24 15:59 23:59 07:59 Intake Total 400 / 850 450 / 850 100 / 100 Output Total 450 / 650 Balance 400 / 200 0 / 200 100 / 100 Weight 72 kg Labs 05/03/24 04:43 05/03/24 04:43 Laboratory Results - Last 48 hrs. 05/03/24 04:43: Corrected WBC 9.9, Uncorrected WBC Count 9.9, RBC 3.02 L, Hgb 8.9 L, Hct 26.4 L, MCV 87.4, MCH 29.5, MCHC 33.8, RDW 15.3, Plt Count 302, MPV 7.7, Neut % (Auto) 81.5, Lymph % (Auto) 6.2, [place] % (Auto) 10.2, Eos % (Auto) 2.0, Baso % (Auto) 0.1, Nucleat RBC Rel Count 0.0, Neut # (Auto) 8.1 H, Lymph # (Auto) 0.6 L, [place] # (Auto) 1.0 H, Eos # (Auto) 0.2, Baso # (Auto) 0.0, PHA Creatinine Clear 39.69, Sodium 139, Potassium 3.5, Chloride 111 H, Carbon Dioxide 24.2, Anion Gap 7.3, BUN 26 H, Creatinine 1.08, Est GFR (CKD-EPI) 49.715, Glucose 86, Calcium 7.8 L, Total Bilirubin 0.6, AST 14, ALT 9, Alkaline Phosphatase 15 L, Total Protein 4.6 L, Albumin 2.7 L, Globulin 1.9, Albumin/Globulin Ratio 1.4 05/02/24 09:19: POC Glucose 71 05/02/24 05:10: Corrected WBC 11.0, Uncorrected WBC Count 11.0, RBC 3.12 L, Hgb 9.3 L, Hct 27.5 L, MCV 88.1, MCH 30.0, MCHC 34.0, RDW 15.4 H, Plt Count 289, MPV7.7, Neut % (Auto) 84.4, Lymph % (Auto) 5.5, [place] % (Auto) 8.8, Eos % (Auto) 1.2, Baso % (Auto) 0.1, Nucleat RBC Rel Count 0.0, Neut # (Auto) 9.3 H, Lymph # (Auto) 0.6 L, [place] # (Auto) 1.0 H, Eos # (Auto) 0.1, Baso # (Auto) 0.0, PHA Creatinine Clear 33.75, Sodium 136, Potassium 3.8, Chloride 107, Carbon Dioxide 21.0, Anion Gap 11.8, BUN 35 H, Creatinine 1.27 H, Est GFR (CKD-EPI) 40.930, Glucose 68 L, Calcium 8.0 L, Total Bilirubin 0.5, AST 15, ALT 9, Alkaline Phosphatase 15 L, Total Protein 4.8 L, Albumin 2.8 L, Globulin 2.0, Albumin/Globulin Ratio 1.4 05/01/24 08:44: Lactic Acid 0.5 05/01/24 05:29: PHA Creatinine Clear 28.01, Sodium 139, Potassium 4.3, Chloride 112 H, Carbon Dioxide 23.5, Anion Gap 7.8, BUN 40 H, Creatinine 1.53 H, Est GFR (CKD-EPI) 32.732, Glucose 76, Calcium 7.8 L Microbiology Microbiology 04/28/24 14:05 Blood - Right Antecubital Blood Culture - Preliminary No Growth 4 Days 04/28/24 14:13 Blood - Right Antecubital Blood Culture - Preliminary No Growth 4 Days 04/29/24 11:17 Ascites Fluid Aerobic Culture - Final No Growth 2 Days 04/29/24 11:17 Ascites Fluid Anaerobic Culture - Final No Anaerobes Isolated 3 Days 04/29/24 11:17 Ascites Fluid Gram Stain - Final A&P - General Surgery Assessment/Plan (1) Status post small bowel resection: (2) Bowel obstruction: Qualifiers: Intestinal obstruction type: other intestinal obstruction Intestinal obstruction extent: unspecified extent Qualified Code(s): K56.699 - Other intestinal obstruction unspecified as to partial versus complete obstruction (3) Chronic colitis: Plan Continue clear liquids. Await return of more bowel function. Increase activity. Continue OT/PT. Continue Prevena VAC. Documented By: Tyrese Girard MD 05/03/24 0615 Signed By: <Electronically signed by MD Tyrese Girard> 05/03/24 5968 [facility] Work Phone: 1(107) 317-774403-26-2025 Consult note Author Jm Armstrong [facility] Note Date/Time May 03, 2024 2:3 2pm [facility] [address] [place] [address] Physiatry (Rehab) Consult Note Signed Patient: Sage Hsu MR#: [id number] : 1935 Acct:[id number] Age/Sex: 88 / F Adm Date: 5 Loc: Room: [address] [place] [address] Type: ADM IN Attending Dr: Dereje Gil MD Copies to: MD Jm Glasgow MD Marcia E Braun, MD~ Etiologic Dx/Impairment Group Narrative Narrative: Debility; ischemic bowel/bowel obstruction. HPI Consult Date: 05/03/24 Requesting Physician: Dereje Gil MD Primary Care Provider: Gypsy Mcmahon MD Consult Narrative Reason for consult: rehab consult HPI: Ms. Hsu is an 88-year-old female status post small bowel resection with lysisof adhesions for bowel obstruction and colitis, ischemic bowel. Discussed discharge planning at great length. She is from [facility], with her son. We discussed inpatient rehab versus retirement facility. The patient feels strongly about returning back to the [place] where she is familiar and closer to family. Otherwise no acute issues today. Review of Systems Review of Systems All other systems reviewed & are negative unless noted below or in HPI [facility] Medical History CAD (coronary artery disease) Cataracts, bilateral Irritable bowel syndrome with diarrhea Microscopic colitis Hyperlipidemia Hypertension Essential (primary) hypertension Dysuria Diverticulosis of large intestine without hemorrhage Clostridioides difficile infection Surgical History History of tonsillectomy and adenoidectomy History of quadruple bypass H/O rectal sphincterotomy S/P hernia repair Hx of hernia repair H/O rectal sphincterotomy Hx of bilateral cataract extraction History of quadruple bypass Hx of cholecystectomy History of left hip replacement Hx of hysterectomy Family History Father Mother Brother Cancer bladder cancer Diabetes Social History Smoking Status: Former smoker Substance Use Type: None Social History Comments: she lives at the [facility], independent living with one of her sons Meds Medications and Allergies Allergies Penicillins Allergy (Severe, Verified 04/13/24 14:59) Rash levofloxacin Allergy (Unknown, Verified 04/13/24 14:59) shaking promethazine (From Phenergan) Allergy (Unknown, Verified 04/13/24 14:59) Vomiting, anaphylaxis ezetimibe Allergy (Verified 04/13/24 14:59) Unknown Reaction gemfibrozil Allergy (Verified 04/13/24 14:59) Unknown Reaction Histamine H2 Inhibitors Allergy (Verified 04/13/24 14:59) Unknown Reaction propoxyphene Allergy (Verified 04/13/24 14:59) Unknown Reaction Antihistamine Allergy (Unknown, Uncoded 05/21/23 09:56) Unknown Reaction Home Medications cholecalciferol (vitamin D3) 50 mcg (2,000 unit) tablet (Vitamin D3) 2,000 unit PO DAILY 12/06/17 [History Confirmed 04/28/24] Lactobacillus acidophilus-Bifidobac.animalis 2.5 billion cell capsule (Daily Probiotic) 1 cap PO DAILY 04/15/23 [History Confirmed 04/28/24] clopidogrel 75 mg tablet 75 mg PO DAILY 04/15/23 [History Confirmed 04/28/24] estradiol 0.01% (0.1 mg/gram) vaginal cream See Rx Instructions .Route .COMPLEX #42.5 grams 04/26/23 [Rx Confirmed 04/29/24] bismuth subsalicylate 262 mg/15 mL oral suspension (Pepto-Bismol) 524 mg PO Q30- 60M PRN diarrhea 05/21/23 [History Confirmed 04/28/24] pantoprazole 20 mg tablet,delayed release 20 mg PO DAILY #90 tabs 08/09/23 [Rx Confirmed 04/28/24] simvastatin 40 mg tablet 40 mg PO DAILY 08/24/23 [History Confirmed 04/28/24] budesonide 3 mg capsule,delayed,extended release 3 mg PO DAILY #90 ea 09/22/23 [Rx Confirmed 04/28/24] spironolactone 50 mg tablet See Rx Instructions .Route .COMPLEX #90 tabs 10/13/23 [Rx Confirmed 04/28/24] ascorbic acid (vitamin C) 250 mg tablet 250 mg PO BID 02/21/24 [History Confirmed 04/29/24] melatonin 3 mg capsule 6 mg PO QHS PRN sleep 02/21/24 [History Confirmed 04/28/24] nebivolol 5 mg tablet 10 mg PO DAILY 02/21/24 [History Confirmed 04/28/24] prostat PO BID 02/21/24 [History Confirmed 04/13/24] gabapentin 100 mg capsule 100 mg PO BID #60 caps 03/23/24 [Rx Confirmed 04/28/24] multivitamin (Daily Multi-Vitamin tablet) 1 tab PO DAILY 03/23/24 [History Confirmed 04/28/24] zinc acetate 50 mg (zinc) capsule (Galzin) 50 mg PO DAILY 03/23/24 [History Confirmed 04/28/24] cephalexin 500 mg capsule 500 mg PO TID 04/13/24 [History Confirmed 04/28/24] aspirin 81 mg tablet,delayed release (Adult Aspirin Regimen) 81 mg PO DAILY 04/29/24 [History Confirmed 04/29/24] loperamide 2 mg capsule (Anti-Diarrheal (loperamide)) 2 mg PO .6hr PRN loose stool 04/29/24 [History Confirmed 04/29/24] rivaroxaban 2.5 mg tablet (Xarelto) 2.5 mg PO BID blood thinner 04/29/24 [History Confirmed 04/29/24] Exam Physical Exam Vital Signs: Temp Pulse Resp BP Pulse Ox O2 Del Method O2 Flow Rate 97.7 F 69 18 154/50 H 95 Room Air 2 05/03/24 12:20 05/03/24 12:20 05/03/24 12:20 05/03/24 12:20 05/03/24 12:20 05/03/24 12:20 05/03/24 08:17 FiO2 0 05/02/24 23:33 Narrative: No acute distress Nonlabored breathing Abdomen soft, mild tenderness to palpation Generally weak Results - Phys. Rehab Labs Labs: Laboratory Results - last 24 hr 05/03/24 04:43 Corrected WBC 9.9 Uncorrected WBC Count 9.9 RBC 3.02 L Hgb 8.9 L Hct 26.4 L MCV 87.4 MCH 29.5 MCHC 33.8 RDW 15.3 Plt Count 302 MPV 7.7 Neut % (Auto) 81.5 Lymph % (Auto) 6.2 [place] % (Auto) 10.2 Eos % (Auto) 2.0 Baso % (Auto) 0.1 Nucleat RBC Rel Count 0.0 Neut # (Auto) 8.1 H Lymph # (Auto) 0.6 L [place] # (Auto) 1.0 H Eos # (Auto) 0.2 Baso # (Auto) 0.0 PHA Creatinine Clear 39.69 Sodium 139 Potassium 3.5 Chloride 111 H Carbon Dioxide 24.2 Anion Gap 7.3 BUN 26 H Creatinine 1.08 Est GFR (CKD-EPI) 49.715 Glucose 86 Calcium 7.8 L Total Bilirubin 0.6 AST 14 ALT 9 Alkaline Phosphatase 15 L Total Protein 4.6 L Albumin 2.7 L Globulin 1.9 Albumin/Globulin Ratio 1.4 Additional Results Results Comment: I reviewed clinical lab tests, radiology reports and obtained and summated medical records and have ordered follow up lab tests and imaging studies as needed for rehabilitation care. Assessment/Plan (1) Status post small bowel resection: (2) Arterial vascular disease: (3) Hypertension: Qualifiers: Hypertension type: primary hypertension Qualified Code(s): I10 - Essential (primary) hypertension (4) Hyperlipidemia: Qualifiers: Hyperlipidemia type: mixed hyperlipidemia Qualified Code(s): E78.2 - Mixed hyperlipidemia (5) Post-operative pain: Plan 88-year-old female status post small bowel resection with lysis of adhesions forbowel obstruction and colitis, ischemic bowel. ? Discussed discharge planning at great length. She is from independent living at the [facility], with her son. We discussed inpatient rehab versus retirement facility. The patient feels strongly about returning back to the [place] where she is familiar and closer to family. Reviewed therapy notes and clinical course. She can be discharged there when cleared by primary team. ? Discussed with case management. Patient was personally seen by me, Dr. Armstrong, on the day of encounter, reviewed the history and the relevant portions of the chart, including current orders, allied health and technology methodology consultant notes, labs/imaging and performed alvarado elements of exam and I formulated the plan of care and facilitated the medical decision making. I completed a substantive portion of this encounter, the medical decision makingportion of this note in its entirety, including Allied health note review, nursing note review, technology methodology consultant note review, discussion with nursing and case management, and more than 50% of my time was spent on counseling and coordination of care, time spent 40 minutes Documented By: Jm Armstrong MD 05/03/24 1427 Signed By: <Electronically signed by Jm Armstrong MD> 05/03/24 1432 [facility] Work Phone: 1(376) 800-424803-26-20[place] [address] General Surgery Progress Note Signed Patient: Sage Hsu MR#: [id number] : 1935 Acct:[id number] Age/Sex: 88 / F Adm Date: 5 Loc: Room: [address] [place] [address] Type: ADM IN Attending Dr: Dereje Gil MD Copies to: ~ Date of Service: 05/03/2024 Subjective Subjective Patient reports: no new complaints, feels better, tolerating liquids well and tolerating a regular diet (soft) HPI: HPI: Patient 88 year old female, is on post op day 4 for Exploratory laparotomy, Lysis of adhesions,Small bowel resection,Removal of mesh. Patient is awake and responsive. She denies fever, nausea, vomiting. Patient continues to have pain at her wound site, particularly when she coughs. Wound vac in place. Working with physical therapy. Tolerated soft diet and liquids. Patient has had flatulence but has not had a bowel movement WBC :9.9 HgB :8.9 and Hct 36.4 Vital signs Stable Hypertensive Allergies & Medications Medications and Allergies Allergies Penicillins Allergy (Severe, Verified 04/13/24 14:59) Rash levofloxacin Allergy (Unknown, Verified 04/13/24 14:59) shaking promethazine (From Phenergan) Allergy (Unknown, Verified 04/13/24 14:59) Vomiting, anaphylaxis ezetimibe Allergy (Verified 04/13/24 14:59) Unknown Reaction gemfibrozil Allergy (Verified 04/13/24 14:59) Unknown Reaction Histamine H2 Inhibitors Allergy (Verified 04/13/24 14:59) Unknown Reaction propoxyphene Allergy (Verified 04/13/24 14:59) Unknown Reaction Antihistamine Allergy (Unknown, Uncoded 05/21/23 09:56) Unknown Reaction Home Medications cholecalciferol (vitamin D3) 50 mcg (2,000 unit) tablet (Vitamin D3) 2,000 unit PO DAILY 12/06/17 [History Confirmed 04/28/24] Lactobacillus acidophilus-Bifidobac.animalis 2.5 billion cell capsule (Daily Probiotic) 1 cap PO DAILY 04/15/23 [History Confirmed 04/28/24] clopidogrel 75 mg tablet 75 mg PO DAILY 04/15/23 [History Confirmed 04/28/24] estradiol 0.01% (0.1 mg/gram) vaginal cream See Rx Instructions .Route .COMPLEX #42.5 grams 04/26/23 [Rx Confirmed 04/29/24] bismuth subsalicylate 262 mg/15 mL oral suspension (Pepto-Bismol) 524 mg PO Q30- 60M PRN diarrhea 05/21/23 [History Confirmed 04/28/24] pantoprazole 20 mg tablet,delayed release 20 mg PO DAILY #90 tabs 08/09/23 [Rx Confirmed 04/28/24] simvastatin 40 mg tablet 40 mg PO DAILY 08/24/23 [History Confirmed 04/28/24] budesonide 3 mg capsule,delayed,extended release 3 mg PO DAILY #90 ea 09/22/23 [Rx Confirmed 04/28/24] spironolactone 50 mg tablet See Rx Instructions .Route .COMPLEX #90 tabs 10/13/23 [Rx Confirmed 04/28/24] ascorbic acid (vitamin C) 250 mg tablet 250 mg PO BID 02/21/24 [History Confirmed 04/29/24] melatonin 3 mg capsule 6 mg PO QHS PRN sleep 02/21/24 [History Confirmed 04/28/24] nebivolol 5 mg tablet 10 mg PO DAILY 02/21/24 [History Confirmed 04/28/24] prostat PO BID 02/21/24 [History Confirmed 04/13/24] gabapentin 100 mg capsule 100 mg PO BID #60 caps 03/23/24 [Rx Confirmed 04/28/24] multivitamin (Daily Multi-Vitamin tablet) 1 tab PO DAILY 03/23/24 [History Confirmed 04/28/24] zinc acetate 50 mg (zinc) capsule (Galzin) 50 mg PO DAILY 03/23/24 [History Confirmed 04/28/24] cephalexin 500 mg capsule 500 mg PO TID 04/13/24 [History Confirmed 04/28/24] aspirin 81 mg tablet,delayed release (Adult Aspirin Regimen) 81 mg PO DAILY 04/29/24 [History Confirmed 04/29/24] loperamide 2 mg capsule (Anti-Diarrheal (loperamide)) 2 mg PO .6hr PRN loose stool 04/29/24 [History Confirmed 04/29/24] rivaroxaban 2.5 mg tablet (Xarelto) 2.5 mg PO BID blood thinner 04/29/24 [History Confirmed 04/29/24] Active Medications Albuterol (Albuterol Neb 2.5 Mg/3 Ml Vial.Neb) 2.5 mg INHALATION Q2H PRN PRN Reason: Shortness Of Breath Stop: 04/28/25 14:20 Heparin Sodium (Porcine) (Heparin 5,000 Unit/Ml Vial) 5,000 unit SUBCUT Q12HR [facility] Stop: 04/28/25 20:59 Last Admin: 05/02/24 21:34 Dose: 5,000 unit Hydralazine HCl (Hydralazine 20 Mg/Ml Vial) 10 mg IV-PUSH Q4H PRN PRN Reason: if SBP > 185 Stop: 04/28/25 14:20 Last Admin: 05/02/24 17:19 Dose: 10 mg Hydromorphone HCl (Hydromorphone 0.5 Mg/0.5 Ml Syringe) 0.25 mg IV-PUSH Q4H PRN PRN Reason: pain Last Admin: 05/03/24 03:49 Dose: 0.25 mg Sodium Chloride (0.9% Sodium Chloride 1,000 Ml) 1,000 mls @ 75 mls/hr IV .[id number] [facility] Stop: 04/29/25 16:16 Last Admin: 05/02/24 13:07 Dose: Not Given Ondansetron HCl (Ondansetron 4 Mg/2 Ml Vial) 4 mg IV-PUSH Q6H PRN PRN Reason: Nausea And Vomiting Stop: 04/29/25 02:25 Last Admin: 04/29/24 03:19 Dose: 4 mg Pantoprazole Sodium (Pantoprazole 40 Mg Vial) 40 mg IV-PUSH DAILY [facility] Stop: 04/29/25 08:59 Last Admin: 05/02/24 08:47 Dose: 40 mg Sodium Chloride (Sodium Chloride 0.9 % 10 Ml Vial.Pf) 10 ml INJECTION PRN PRN PRN Reason: Dilution Stop: 04/28/25 14:32 Last Admin: 04/30/24 08:04 Dose: 10 ml Exam Physical Exam Vital Signs: Temp Pulse Resp BP Pulse Ox O2 Del Method O2 Flow Rate 97.9 F 74 16 180/70 H 96 Nasal Cannula 2 05/03/24 03:40 05/03/24 03:40 05/03/24 03:40 05/03/24 03:40 05/03/24 03:40 05/03/24 03:40 05/03/24 03:40 FiO2 0 05/02/24 23:33 Const General: cooperative, healthy appearing and comfortable Orientation: alert, awake and oriented x3 Eyes Conjunctivae: conjunctivae normal Sclera: sclerae normal (aniteric) Resp Effort & Inspection: normal respiratory effort, able to speak in complete sentences, symmetric chest movement and no audible wheezes Auscultation: clear to auscultation bilaterally, no rales, no rhonchi and no wheezes Cardio Rate: regular rate Rhythm: regular rhythm Pulses: radial pulses present GI Inspection: normal to inspection Palpation: soft, not firm, no guarding, not rigid and nontender Auscultation: normal bowel sounds Other: Prevena Vac in place Neuro General: patient alert, patient awake and patient oriented x3 Extrem General: no calf tenderness bilaterally Psych Appearance: grossly normal Attitude: cooperative Objective Pain Assessment Abdomen: Pain Intensity: 0 Intake & Output 24 hour I&O: Intake & Output 05/02/24 05/02/24 05/03/24 15:59 23:59 07:59 Intake Total 400 / 850 450 / 850 100 / 100 Output Total 450 / 650 Balance 400 / 200 0 / 200 100 / 100 Weight 72 kg Labs 05/03/24 04:43 05/03/24 04:43 Laboratory Results - Last 48 hrs. 05/03/24 04:43: Corrected WBC 9.9, Uncorrected WBC Count 9.9, RBC 3.02 L, Hgb 8.9 L, Hct 26.4 L, MCV 87.4, MCH 29.5, MCHC 33.8, RDW 15.3, Plt Count 302, MPV 7.7, Neut % (Auto) 81.5, Lymph % (Auto) 6.2, [place] % (Auto) 10.2, Eos % (Auto) 2.0, Baso % (Auto) 0.1, Nucleat RBC Rel Count 0.0, Neut # (Auto)8.1 H, Lymph # (Auto) 0.6 L, [place] # (Auto) 1.0 H, Eos # (Auto) 0.2, Baso # (Auto) 0.0, PHA Creatinine Clear 39.69, Sodium 139, Potassium 3.5, Chloride 111 H, Carbon Dioxide 24.2, Anion Gap 7.3, BUN 26 H, Creatinine 1.08, Est GFR (CKD-EPI) 49.715, Glucose 86, Calcium 7.8 L, Total Bilirubin 0.6, AST 14, ALT 9, Alkaline Phosphatase 15 L, Total Protein 4.6 L, Albumin 2.7 L, Globulin 1.9, Albumin/Globulin Ratio 1.4 05/02/24 09:19: POC Glucose 71 05/02/24 05:10: Corrected WBC 11.0, Uncorrected WBC Count 11.0, RBC 3.12 L, Hgb 9.3 L, Hct 27.5 L, MCV 88.1, MCH 30.0, MCHC 34.0, RDW 15.4 H, Plt Count 289, MPV7.7, Neut % (Auto) 84.4, Lymph % (Auto)5.5, [place] % (Auto) 8.8, Eos % (Auto) 1.2, Baso % (Auto) 0.1, Nucleat RBC Rel Count 0.0, Neut # (Auto) 9.3 H, Lymph # (Auto) 0.6 L, [place] # (Auto) 1.0 H, Eos # (Auto) 0.1, Baso # (Auto) 0.0, PHA Creatinine Clear 33.75, Sodium 136, Potassium 3.8, Chloride 107, Carbon Dioxide 21.0, Anion Gap 11.8, BUN 35 H, Creatinine 1.27 H, Est GFR (CKD-EPI) 40.930, Glucose 68 L, Calcium 8.0 L, Total Bilirubin 0.5,AST 15, ALT 9, Alkaline Phosphatase 15 L, Total Protein 4.8 L, Albumin 2.8 L, Globulin 2.0, Albumin/ Globulin Ratio 1.4 05/01/24 08:44: Lactic Acid 0.5 05/01/24 05:29: PHA Creatinine Clear 28.01, Sodium 139, Potassium 4.3, Chloride 112 H, Carbon Dioxide 23.5, Anion Gap 7.8, BUN 40 H, Creatinine 1.53 H, Est GFR (CKD-EPI) 32.732, Glucose 76, Calcium 7.8 L Microbiology Microbiology 04/28/24 14:05 Blood - Right Antecubital Blood Culture - Preliminary No Growth 4 Days 04/28/24 14:13 Blood - Right Antecubital Blood Culture - Preliminary No Growth 4 Days 04/29/24 11:17 Ascites Fluid Aerobic Culture - Final No Growth 2 Days 04/29/24 11:17 Ascites Fluid Anaerobic Culture - Final No Anaerobes Isolated 3 Days 04/29/24 11:17 Ascites Fluid Gram Stain - Final A&P - General Surgery Assessment/Plan (1) Status post small bowel resection: (2) Bowel obstruction: Qualifiers: Intestinal obstruction type: other intestinal obstruction Intestinal obstruction extent: unspecified extent Qualified Code(s): K56.699 - Other intestinal obstruction unspecified as to partial versus complete obstruction (3) Chronic colitis: Plan Continue clear liquids. Await return of more bowel function. Increase activity. Continue OT/PT. Continue Prevena VAC. Documented By: Tyrese Girard MD 05/03/24 0615 Signed By: 05/03/24 1609 [facility]03-26-2025 Progress note Author Dereje Gil [facility] Note Date/Time May 03, 2024 12: 54pm [facility] [address] [place] [address] Hospitalist Progress Note Signed Patient: Sage Hsu MR#: [id number] : 1935 Acct:[id number] Age/Sex: 88 / F Adm Date: 5 Loc: 4N Room: 5G1617-0 Type: ADM IN Attending Dr: Dereje Gil MD Copies to: ~ Date of Service: 05/03/2024 Subjective Subjective Narrative: Patient is feeling well today. NG tube removed yesterday after being clamped for 24 hours. She is tolerating p.o. intake without abdominal pain or nausea. Believes her pain is well-controlled. She is occasionally receiving doses of IVDilaudid for abdominal pain control, received 2 doses overnight. Patient reports passing flatus but has not had any bowel movements as of yet. Daughter is at bedside during my assessment and updated on the plan of care. Exam Physical Exam Vital Signs: Temp Pulse Resp BP Pulse Ox O2 Del Method O2 Flow Rate 97.7 F 69 18 154/50 H 95 Room Air 2 05/03/24 12:20 05/03/24 12:20 05/03/24 12:20 05/03/24 12:20 05/03/24 12:20 05/03/24 12:20 05/03/24 08:17 FiO2 0 05/02/24 23:33 Narrative: Constitutional: Frail, elderly WF, resting in chair at bedside HEENT: NG tube removed, clamped at this time Cardiovascular: RRR, no M/R/G, normal S1 and S2 Respiratory: Clear to auscultation bilaterally, no wheezes, rales or rhonchi GI: Soft, mildly tender to palpation. Wound VAC in place. Hypoactive bowel sounds. No rebound tenderness or guarding : Deferred Extremities: No clubbing, cyanosis or edema Neuro: AAOx3, patient awake, able to follow commands, answer questions without difficulty. Skin: Anterior wound area covered with wound VAC at this time. Belly is soft, diffusely tender to moderate palpation Psych: Affect is improved today Objective Lab Results 05/03/24 04:43 05/03/24 04:43 Microbiology Results Microbiology 04/28/24 14:05 Blood - Right Antecubital Blood Culture - Preliminary No Growth 4 Days 04/28/24 14:13 Blood - Right Antecubital Blood Culture - Preliminary No Growth 4 Days Meds Allergies and Active Meds Allergies Penicillins Allergy (Severe, Verified 04/13/24 14:59) Rash levofloxacin Allergy (Unknown, Verified 04/13/24 14:59) shaking promethazine (From Phenergan) Allergy (Unknown, Verified 04/13/24 14:59) Vomiting, anaphylaxis ezetimibe Allergy (Verified 04/13/24 14:59) Unknown Reaction gemfibrozil Allergy (Verified 04/13/24 14:59) Unknown Reaction Histamine H2 Inhibitors Allergy (Verified 04/13/24 14:59) Unknown Reaction propoxyphene Allergy (Verified 04/13/24 14:59) Unknown Reaction Antihistamine Allergy (Unknown, Uncoded 05/21/23 09:56) Unknown Reaction Active Meds: Active Medications Generic Name Dose Route Start Last Admin Trade Name Freq PRN Reason Stop Dose Admin Albuterol 2.5 mg 04/28/24 14:21 Albuterol Neb 2.5 Mg/3 Ml Vial.Neb INHALATION 04/28/25 14:20 Q2H PRN Shortness Of Breath Heparin Sodium (Porcine) 5,000 unit 04/28/24 21:00 05/03/24 10:16 Heparin 5,000 Unit/Ml Vial SUBCUT 04/28/25 20:59 5,000 unit Q12HR DAY Administration Hydralazine HCl 10 mg 04/28/24 14:21 05/03/24 08:40 Hydralazine 20 Mg/Ml Vial IV-PUSH 04/28/25 14:20 10 mg Q4H PRN Administration if SBP > 185 Hydromorphone HCl 0.25 mg 04/29/24 03:25 05/03/24 11:01 Hydromorphone 0.5 Mg/0.5 Ml Syringe IV-PUSH 0.25 mg Q4H PRN Administration pain Sodium Chloride 1,000 mls @ 75 mls/hr 04/29/24 16:17 05/02/24 13:07 0.9% Sodium Chloride 1,000 Ml IV 04/29/25 16:16 Not Given .[id number] DAY Ondansetron HCl 4 mg 04/29/24 02:26 04/29/24 03:19 Ondansetron 4 Mg/2 Ml Vial IV-PUSH 04/29/25 02:25 4 mg Q6H PRN Administration Nausea And Vomiting Pantoprazole Sodium 40 mg 04/29/24 09:00 05/03/24 10:16 Pantoprazole 40 Mg Vial IV-PUSH 04/29/25 08:59 40 mg DAILY DAY Administration Sodium Chloride 10 ml 04/28/24 14:33 05/03/24 10:16 Sodium Chloride 0.9 % 10 Ml Vial.Pf INJECTION 04/28/25 14:32 10 ml PRN PRN Administration Dilution A&P - Hospitalist Assessment/Plan (1) Hypertension: Plan # Small bowel obstruction with previous history of complicated cholecystectomy, history of hysterectomy Pt is POD#4 status-post exploratory laparotomy with lysis of adhesions and smallbowel resection with removal of mesh on April 29, 2024 Improved. Doing quite well clinically. WBC has resolved and patient has no evidence of acute infection at this time. NG tube removed and patient is tolerating p.o. diet -Can hold on further IV antibiotics; had received a few days of ceftriaxone and Flagyl IV initially -Post-operative management per general surgery -Will advance diet per general surgery recommendations # Acute kidney injury on chronic kidney disease stage III Improving. creatinine is now improved below patient's baseline. -Continue maintenance fluids at 75 cc/h until eating a significant amount -Monitor BMP closely # Coronary artery disease s/p CABG in 1998 Status-post stress test in 2023 before right lower extremity femoral-popliteal bypass, per family stress test was unremarkable Denies any symptoms such as chest pain shortness of breath EKG normal sinus with right bundle branch block no ischemic findings -Monitor on telemetry # Hypertension-Patient n.p.o. with NG tube in place, hold on any antihypertensives for now, given no p.o intake # Microscopic colitis, does not need IV steroids # Previous history of C. difficile colitis- Will hold on further antibiotics # DVT prophylaxis: heparin subQ # CODE STATUS: Full Code Documented By: Dereje Gil MD 5 1993 Signed By: <Electronically signed by Dereje Gil MD> 05/03/24 3926 [facility] Work Phone: [phone]) 452-118503-26-2025 [place] [address] Physiatry (Rehab) Consult Note Signed Patient: Sage Hsu MR#: [id number] : 1935 Acct:[id number] Age/Sex: 88 / F Adm Date: 5 Loc: 4N Room: [address] [place] [address] Type: ADM IN Attending Dr: Dereje Gil MD Copies to: MD Jm Glasgow MD Marcia E Braun, MD~ Etiologic Dx/Impairment Group Narrative Narrative: Debility; ischemic bowel/bowel obstruction. HPI Consult Date: 05/03/24 Requesting Physician: Dereje Gil MD Primary Care Provider: Gypsy Mcmahon MD Consult Narrative Reason for consult: rehab consult HPI: Ms. Hsu is an 88-year-old female status post small bowel resection with lysisof adhesions for bowel obstruction and colitis, ischemic bowel. Discussed discharge planning at great length. She is from independent living [facility], with her son. We discussed inpatient rehab versus retirement facility. The patient feels strongly about returning back to the [place] where she is familiar and closer to family. Otherwise no acute issues today. Review of Systems Review of Systems All other systems reviewed & are negative unless noted below or in HPI [facility] Medical History CAD (coronary artery disease) Cataracts, bilateral Irritable bowel syndrome with diarrhea Microscopic colitis Hyperlipidemia Hypertension Essential (primary) hypertension Dysuria Diverticulosis of large intestine without hemorrhage Clostridioides difficile infection Surgical History History of tonsillectomy and adenoidectomy History of quadruple bypass H/O rectal sphincterotomy S/P hernia repair Hx of hernia repair H/O rectal sphincterotomy Hx of bilateral cataract extraction History of quadruple bypass Hx of cholecystectomy History of left hip replacement Hx of hysterectomy Family History Father Mother Brother Cancer bladder cancer Diabetes Social History Smoking Status: Former smoker Substance Use Type: None Social History Comments: she lives at the [facility], independent living with one of her sons Meds Medications and Allergies Allergies Penicillins Allergy (Severe, Verified 04/13/24 14:59) Rash levofloxacin Allergy (Unknown, Verified 04/13/24 14:59) shaking promethazine (From Phenergan) Allergy (Unknown, Verified 04/13/24 14:59) Vomiting, anaphylaxis ezetimibe Allergy (Verified 04/13/24 14:59) Unknown Reaction gemfibrozil Allergy (Verified 04/13/24 14:59) Unknown Reaction Histamine H2 Inhibitors Allergy (Verified 04/13/24 14:59) Unknown Reaction propoxyphene Allergy (Verified 04/13/24 14:59) Unknown Reaction Antihistamine Allergy (Unknown, Uncoded 05/21/23 09:56) Unknown Reaction Home Medications cholecalciferol (vitamin D3) 50 mcg (2,000 unit) tablet (Vitamin D3) 2,000 unit PO DAILY 12/06/17 [History Confirmed 04/28/24] Lactobacillus acidophilus-Bifidobac.animalis 2.5 billion cell capsule (Daily Probiotic) 1 cap PO DAILY 04/15/23 [History Confirmed 04/28/24] clopidogrel 75 mg tablet 75 mg PO DAILY 04/15/23 [History Confirmed 04/28/24] estradiol 0.01% (0.1 mg/gram) vaginal cream See Rx Instructions .Route .COMPLEX #42.5 grams 04/26/23 [Rx Confirmed 04/29/24] bismuth subsalicylate 262 mg/15 mL oral suspension (Pepto-Bismol) 524 mg PO Q30- 60M PRN diarrhea 05/21/23 [History Confirmed 04/28/24] pantoprazole 20 mg tablet,delayed release 20 mg PO DAILY #90 tabs 08/09/23 [Rx Confirmed 04/28/24] simvastatin 40 mg tablet 40 mg PO DAILY 08/24/23 [History Confirmed 04/28/24] budesonide 3 mg capsule,delayed,extended release 3 mg PO DAILY #90 ea 09/22/23 [Rx Confirmed 04/28/24] spironolactone 50 mg tablet See Rx Instructions .Route .COMPLEX #90 tabs 10/13/23 [Rx Confirmed 04/28/24] ascorbic acid (vitamin C) 250 mg tablet 250 mg PO BID 02/21/24 [History Confirmed 04/29/24] melatonin 3 mg capsule 6 mg PO QHS PRN sleep 02/21/24 [History Confirmed 04/28/24] nebivolol 5 mg tablet 10 mg PO DAILY 02/21/24 [History Confirmed 04/28/24] prostat PO BID 02/21/24 [History Confirmed 04/13/24] gabapentin 100 mg capsule 100 mg PO BID #60 caps 03/23/24 [Rx Confirmed 04/28/24] multivitamin (Daily Multi-Vitamin tablet) 1 tab PO DAILY 03/23/24 [History Confirmed 04/28/24] zinc acetate 50 mg (zinc) capsule (Galzin) 50 mg PO DAILY 03/23/24 [History Confirmed 04/28/24] cephalexin 500 mg capsule 500 mg PO TID 04/13/24 [History Confirmed 04/28/24] aspirin 81 mg tablet,delayed release (Adult Aspirin Regimen) 81 mg PO DAILY 04/29/24 [History Confirmed 04/29/24] loperamide 2 mg capsule (Anti-Diarrheal (loperamide)) 2 mg PO .6hr PRN loose stool 04/29/24 [History Confirmed 04/29/24] rivaroxaban 2.5 mg tablet (Xarelto) 2.5 mg PO BID blood thinner 04/29/24 [History Confirmed 04/29/24] Exam Physical Exam Vital Signs: Temp Pulse Resp BP Pulse Ox O2 Del Method O2 Flow Rate 97.7 F 69 18 154/50 H 95 Room Air 2 05/03/24 12:20 05/03/24 12:20 05/03/24 12:20 05/03/24 12:20 05/03/24 12:20 05/03/24 12:20 05/03/24 08:17 FiO2 0 05/02/24 23:33 Narrative: No acute distress Nonlabored breathing Abdomen soft, mild tenderness to palpation Generally weak Results - Phys. Rehab Labs Labs: Laboratory Results - last 24 hr 05/03/24 04:43 Corrected WBC 9.9 Uncorrected WBC Count 9.9 RBC 3.02 L Hgb 8.9 L Hct 26.4 L MCV 87.4 MCH 29.5 MCHC 33.8 RDW 15.3 Plt Count 302 MPV 7.7 Neut % (Auto) 81.5 Lymph % (Auto) 6.2 [place] % (Auto) 10.2 Eos % (Auto) 2.0 Baso % (Auto) 0.1 Nucleat RBC Rel Count 0.0 Neut # (Auto) 8.1 H Lymph # (Auto) 0.6 L [place] # (Auto) 1.0 H Eos # (Auto) 0.2 Baso # (Auto) 0.0 PHA Creatinine Clear 39.69 Sodium 139 Potassium 3.5 Chloride 111 H Carbon Dioxide 24.2 Anion Gap 7.3 BUN 26 H Creatinine 1.08 Est GFR (CKD-EPI) 49.715 Glucose 86 Calcium 7.8 L Total Bilirubin 0.6 AST 14 ALT 9 Alkaline Phosphatase 15 L Total Protein 4.6 L Albumin 2.7 L Globulin 1.9 Albumin/Globulin Ratio 1.4 Additional Results Results Comment: I reviewed clinical lab tests, radiology reports and obtained and summated medical records and haveordered follow up lab tests and imaging studies as needed for rehabilitation care. Assessment/Plan (1) Status post small bowel resection: (2) Arterial vascular disease: (3) Hypertension: Qualifiers: Hypertension type: primary hypertension Qualified Code(s): I10 - Essential (primary) hypertension (4) Hyperlipidemia: Qualifiers: Hyperlipidemia type: mixed hyperlipidemia Qualified Code(s): E78.2 - Mixed hyperlipidemia (5) Post-operative pain: Plan 88-year-old female status post small bowel resection with lysis of adhesions forbowel obstruction and colitis, ischemic bowel. ? Discussed discharge planning at great length. She is from independent living at the [facility], with her son. We discussed inpatient rehab versus retirement facility. The patient feels strongly about returning back to the [place] where she is familiar and closer to family. Reviewed therapy notes and clinical course. She can be discharged there when cleared by primary team. ? Discussed with case management. Patient was personally seen by me, Dr. Armstrong, on the day of encounter, reviewed the history and therelevant portions of the chart, including current orders, allied health and technology methodology consultant notes, labs/imaging and performed alvarado elements of exam and I formulated the plan of care and facilitated the medical decision making. I completed a substantive portion of this encounter, the medical decision makingportion of this note in its entirety, including Allied health note review, nursing note review, technology methodology consultant note review,discussion with nursing and case management, and more than 50% of my time was spent on counseling and coordination of care, time spent 40 minutes Documented By: Jm Armstrong MD 05/03/24 1427 Signed By: 05/03/24 1432 [facility]03-26-20[place] [address] Hospitalist Progress Note Signed Patient: Sage Hsu MR#: [id number] : 1935 Acct:[id number] Age/Sex: 88 / F Adm Date: 5 Loc: 4N Room: [address] [place] [address] Type: ADM IN Attending Dr: Dereje Gil MD Copies to: ~ Date of Service: 05/03/2024 Subjective Subjective Narrative: Patient is feeling well today. NG tube removed yesterday after being clamped for 24 hours. She is tolerating p.o. intake without abdominal pain or nausea. Believes her pain is well-controlled. She isoccasionally receiving doses of IVDilaudid for abdominal pain control, received 2 doses overnight. Patient reports passing flatus but has not had any bowel movements as of yet. Daughter is at bedsideduring my assessment and updated on the plan of care. Exam Physical Exam Vital Signs: Temp Pulse Resp BP Pulse Ox O2 Del Method O2 Flow Rate 97.7 F 69 18 154/50 H 95 Room Air 2 05/03/24 12:20 05/03/24 12:20 05/03/24 12:20 05/03/24 12:20 05/03/24 12:20 05/03/24 12:20 05/03/24 08:17 FiO2 0 05/02/24 23:33 Narrative: Constitutional: Frail, elderly WF, resting in chair at bedside HEENT: NG tube removed, clamped at this time Cardiovascular: RRR, no M/R/G, normal S1 and S2 Respiratory: Clear to auscultation bilaterally, no wheezes, rales or rhonchi GI: Soft, mildly tender to palpation. Wound VAC in place. Hypoactive bowel sounds. No rebound tenderness or guarding : Deferred Extremities: No clubbing, cyanosis or edema Neuro: AAOx3, patient awake, able to follow commands, answer questions without difficulty. Skin: Anterior wound area covered with wound VAC at this time. Belly is soft, diffusely tender to moderate palpation Psych: Affect is improved today Objective Lab Results 05/03/24 04:43 05/03/24 04:43 Microbiology Results Microbiology 04/28/24 14:05 Blood - Right Antecubital Blood Culture - Preliminary No Growth 4 Days 04/28/24 14:13 Blood - Right Antecubital Blood Culture - Preliminary No Growth 4 Days Meds Allergies and Active Meds Allergies Penicillins Allergy (Severe, Verified 04/13/24 14:59) Rash levofloxacin Allergy (Unknown, Verified 04/13/24 14:59) shaking promethazine (From Phenergan) Allergy (Unknown, Verified 04/13/24 14:59) Vomiting, anaphylaxis ezetimibe Allergy (Verified 04/13/24 14:59) Unknown Reaction gemfibrozil Allergy (Verified 04/13/24 14:59) Unknown Reaction Histamine H2 Inhibitors Allergy (Verified 04/13/24 14:59) Unknown Reaction propoxyphene Allergy (Verified 04/13/24 14:59) Unknown Reaction Antihistamine Allergy (Unknown, Uncoded 05/21/23 09:56) Unknown Reaction Active Meds: Active Medications Generic Name Dose Route Start Last Admin Trade Name Freq PRN Reason Stop Dose Admin Albuterol 2.5 mg 04/28/24 14:21 Albuterol Neb 2.5 Mg/3 Ml Vial.Neb INHALATION 04/28/25 14:20 Q2H PRN Shortness Of Breath Heparin Sodium (Porcine) 5,000 unit 04/28/24 21:00 05/03/24 10:16 Heparin 5,000 Unit/Ml Vial SUBCUT 04/28/25 20:59 5,000 unit Q12HR DAY Administration Hydralazine HCl 10 mg 04/28/24 14:21 05/03/24 08:40 Hydralazine 20 Mg/Ml Vial IV-PUSH 04/28/25 14:20 10 mg Q4H PRN Administration if SBP > 185 Hydromorphone HCl 0.25 mg 04/29/24 03:25 05/03/24 11:01 Hydromorphone 0.5 Mg/0.5 Ml Syringe IV-PUSH 0.25 mg Q4H PRN Administration pain Sodium Chloride 1,000 mls @ 75 mls/hr 04/29/24 16:17 05/02/24 13:07 0.9% Sodium Chloride 1,000 Ml IV 04/29/25 16:16 Not Given .[id number] DAY Ondansetron HCl 4 mg 04/29/24 02:26 04/29/24 03:19 Ondansetron 4 Mg/2 Ml Vial IV-PUSH 04/29/25 02:25 4 mg Q6H PRN Administration Nausea And Vomiting Pantoprazole Sodium 40 mg 04/29/24 09:00 05/03/24 10:16 Pantoprazole 40 Mg Vial IV-PUSH 04/29/25 08:59 40 mg DAILY DAY Administration Sodium Chloride 10 ml 04/28/24 14:33 05/03/24 10:16 Sodium Chloride 0.9 % 10 Ml Vial.Pf INJECTION 04/28/25 14:32 10 ml PRN PRN Administration Dilution A&P - Hospitalist Assessment/Plan (1) Hypertension: Plan # Small bowel obstruction with previous history of complicated cholecystectomy, history of hysterectomy Pt is POD#4 status-post exploratory laparotomy with lysis of adhesions and smallbowel resection with removal of mesh on April 29, 2024 Improved. Doing quite well clinically. WBC has resolved and patient has no evidence of acute infection at this time. NG tube removed and patient is tolerating p.o. diet -Can hold on further IV antibiotics; had received a few days of ceftriaxone and Flagyl IV initially -Post-operative management per general surgery -Will advance diet per general surgery recommendations # Acute kidney injury on chronic kidney disease stage III Improving. creatinine is now improved below patient's baseline. -Continue maintenance fluids at 75 cc/h until eating a significant amount -Monitor BMP closely # Coronary artery disease s/p CABG in 1998 Status-post stress test in 2023 before right lower extremity femoral-popliteal bypass, per family stress test was unremarkable Denies any symptoms such as chest pain shortness of breath EKG normal sinus with right bundle branch block no ischemic findings -Monitor on telemetry # Hypertension-Patient n.p.o. with NG tube in place, hold on any antihypertensives for now, given no p.o intake # Microscopic colitis, does not need IV steroids # Previous history of C. difficile colitis- Will hold on further antibiotics # DVT prophylaxis: heparin subQ # CODE STATUS: Full Code Documented By: Dereje Gil MD 5 1246 Signed By: 05/03/24 1254 [facility]03-25-2025 Progress note Author Dereje Gil [facility] Note Date/Time May 02, 2024 5:0 9pm [facility] [address] [place] [address] Hospitalist Progress Note Signed Patient: Sage Hsu MR#: [id number] : 1935 Acct:[id number] Age/Sex: 88 / F Adm Date: 5 Loc: Room: [address] [place] [address] Type: ADM IN Attending Dr: Dereje Gil MD Copies to: ~ Date of Service: 05/02/2024 Subjective Subjective Narrative: NG tube clamped today. Patient is feeling somewhat better today. She did pass flatus, but has not had a bowel movement yet. Son is present in the room and updated on the current plan of care. She is tolerating p.o. intake without painor nausea. Beckman catheter removed as well. Exam Physical Exam Vital Signs: Temp Pulse Resp BP Pulse Ox O2 Del Method O2 Flow Rate 98.1 F 67 15 180/71 H 96 Nasal Cannula 2 05/02/24 08:24 05/02/24 11:40 05/02/24 11:40 05/02/24 11:40 05/02/24 11:40 05/02/24 16:50 05/02/24 16:50 Narrative: Constitutional: Frail, elderly WF, resting in chair at bedside, with NG tube in place and clamped HEENT: NG tube taped into nare, clamped at this time Cardiovascular: RRR, no M/R/G, normal S1 and S2 Respiratory: Clear to auscultation bilaterally, no wheezes, rales or rhonchi GI: Soft, mildly tender to palpation. Wound VAC in place. Hypoactive bowel sounds. No rebound tenderness or guarding : Deferred Extremities: No clubbing, cyanosis or edema Neuro: AAOx3, patient awake, able to follow commands, answer questions without difficulty. Skin: Anterior wound area covered with wound VAC at this time. Belly is soft, diffusely tender to moderate palpation Psych: Patient has a moderately down affect Objective Lab Results 05/02/24 05:10 05/02/24 05:10 Microbiology Results Microbiology 04/28/24 14:05 Blood - Right Antecubital Blood Culture - Preliminary No Growth 4 Days 04/28/24 14:13 Blood - Right Antecubital Blood Culture - Preliminary No Growth 4 Days 04/29/24 11:17 Ascites Fluid Aerobic Culture - Final No Growth 2 Days 04/29/24 11:17 Ascites Fluid Anaerobic Culture - Final No Anaerobes Isolated 3 Days 04/29/24 11:17 Ascites Fluid Gram Stain - Final Meds Allergies and Active Meds Allergies Penicillins Allergy (Severe, Verified 04/13/24 14:59) Rash levofloxacin Allergy (Unknown, Verified 04/13/24 14:59) shaking promethazine (From Phenergan) Allergy (Unknown, Verified 04/13/24 14:59) Vomiting, anaphylaxis ezetimibe Allergy (Verified 04/13/24 14:59) Unknown Reaction gemfibrozil Allergy (Verified 04/13/24 14:59) Unknown Reaction Histamine H2 Inhibitors Allergy (Verified 04/13/24 14:59) Unknown Reaction propoxyphene Allergy (Verified 04/13/24 14:59) Unknown Reaction Antihistamine Allergy (Unknown, Uncoded 05/21/23 09:56) Unknown Reaction Active Meds: Active Medications Generic Name Dose Route Start Last Admin Trade Name Freq PRN Reason Stop Dose Admin Albuterol 2.5 mg 04/28/24 14:21 Albuterol Neb 2.5 Mg/3 Ml Vial.Neb INHALATION 04/28/25 14:20 Q2H PRN Shortness Of Breath Heparin Sodium (Porcine) 5,000 unit 04/28/24 21:00 05/02/24 08:46 Heparin 5,000 Unit/Ml Vial SUBCUT 04/28/25 20:59 5,000 unit Q12HR DAY Administration Hydralazine HCl 10 mg 04/28/24 14:21 05/02/24 08:47 Hydralazine 20 Mg/Ml Vial IV-PUSH 04/28/25 14:20 10 mg Q4H PRN Administration if SBP > 185 Hydromorphone HCl 0.25 mg 04/29/24 03:25 05/02/24 06:43 Hydromorphone 0.5 Mg/0.5 Ml Syringe IV-PUSH 0.25 mg Q4H PRN Administration pain Sodium Chloride 1,000 mls @ 75 mls/hr 04/29/24 16:17 05/02/24 13:07 0.9% Sodium Chloride 1,000 Ml IV 04/29/25 16:16 Not Given .[id number] DAY Ondansetron HCl 4 mg 04/29/24 02:26 04/29/24 03:19 Ondansetron 4 Mg/2 Ml Vial IV-PUSH 04/29/25 02:25 4 mg Q6H PRN Administration Nausea And Vomiting Pantoprazole Sodium 40 mg 04/29/24 09:00 05/02/24 08:47 Pantoprazole 40 Mg Vial IV-PUSH 04/29/25 08:59 40 mg DAILY DAY Administration Sodium Chloride 10 ml 04/28/24 14:33 03/23/25 08:04 Sodium Chloride 0.9 % 10 Ml Vial.Pf INJECTION 04/28/25 14:32 10 ml PRN PRN Administration Dilution A&P - Hospitalist Assessment/Plan (1) Hypertension: Plan # Small bowel obstruction with previous history of complicated cholecystectomy, history of hysterectomy Pt is POD#3 status-post exploratory laparotomy with lysis of adhesions and smallbowel resection with removal of mesh on April 29, 2024 Improved. Doing quite well clinically. WBC has resolved and patient has no evidence of acute infection at this time. NG tube is currently clamped -Can hold on further IV antibiotics; had received a few days of ceftriaxone and Flagyl IV initially -Post-operative management per general surgery -Maintain NG tube until recommended for removal -Will advance diet per general surgery recommendations # Acute kidney injury on chronic kidney disease stage III Improving. creatinine down to 1.27. Previous baseline is around 1.5 -Continue maintenance fluids at 75 cc/h until eating a significant amount -Monitor BMP closely # Coronary artery disease s/p CABG in 1998 Status-post stress test in 2023 before right lower extremity femoral-popliteal bypass, per family stress test was unremarkable Denies any symptoms such as chest pain shortness of breath EKG normal sinus with right bundle branch block no ischemic findings -Monitor on telemetry # Hypertension-Patient n.p.o. with NG tube in place, hold on any antihypertensives for now, given no p.o intake # Microscopic colitis, does not need IV steroids # Previous history of C. difficile colitis- Will discontinue further antibiotics # DVT prophylaxis: heparin subQ # CODE STATUS: Full Code Documented By: Dereje Gil MD [id number] Signed By: <Electronically signed by Dereje Gil MD> 05/02/24 1705 [facility] Work Phone: 1(952) 489-805003-25-2025 [place] [address] Hospitalist Progress Note Signed Patient: Sage Hsu MR#: [id number] : 1935 Acct:[id number] Age/Sex: 88 / F Adm Date: Loc: Room: 4U1819-0 Type: ADM IN Attending Dr: Dereje Gil MD Copies to: ~ Date of Service: 05/02/2024 Subjective Subjective Narrative: NG tube clamped today. Patient is feeling somewhat better today. She did pass flatus, but has not had a bowel movement yet. Son is present in the room and updated on the current plan of care. She is tolerating p.o. intake without painor nausea. Beckman catheter removed as well. Exam Physical Exam Vital Signs: Temp Pulse Resp BP Pulse Ox O2 Del Method O2 Flow Rate 98.1 F 67 15 180/71 H 96 Nasal Cannula 2 05/02/24 08:24 05/02/24 11:40 05/02/24 11:40 05/02/24 11:40 05/02/24 11:40 05/02/24 16:50 05/02/24 16:50 Narrative: Constitutional: Frail, elderly WF, resting in chair at bedside, with NG tube in place and clamped HEENT: NG tube taped into nare, clamped at this time Cardiovascular: RRR, no M/R/G, normal S1 and S2 Respiratory: Clear to auscultation bilaterally, no wheezes, rales or rhonchi GI: Soft, mildly tender to palpation. Wound VAC in place. Hypoactive bowel sounds. No rebound tenderness or guarding : Deferred Extremities: No clubbing, cyanosis or edema Neuro: AAOx3, patient awake, able to follow commands, answer questions without difficulty. Skin: Anterior wound area covered with wound VAC at this time. Belly is soft, diffusely tender to moderate palpation Psych: Patient has a moderately down affect Objective Lab Results 05/02/24 05:10 05/02/24 05:10 Microbiology Results Microbiology 04/28/24 14:05 Blood - Right Antecubital Blood Culture - Preliminary No Growth 4 Days 04/28/24 14:13 Blood - Right Antecubital Blood Culture - Preliminary No Growth 4 Days 04/29/24 11:17 Ascites Fluid Aerobic Culture - Final No Growth 2 Days 04/29/24 11:17 Ascites Fluid Anaerobic Culture - Final No Anaerobes Isolated 3 Days 04/29/24 11:17 Ascites Fluid Gram Stain - Final Meds Allergies and Active Meds Allergies Penicillins Allergy (Severe, Verified 04/13/24 14:59) Rash levofloxacin Allergy (Unknown, Verified 04/13/24 14:59) shaking promethazine (From Phenergan) Allergy (Unknown, Verified 04/13/24 14:59) Vomiting, anaphylaxis ezetimibe Allergy (Verified 04/13/24 14:59) Unknown Reaction gemfibrozil Allergy (Verified 04/13/24 14:59) Unknown Reaction Histamine H2 Inhibitors Allergy (Verified 04/13/24 14:59) Unknown Reaction propoxyphene Allergy (Verified 04/13/24 14:59) Unknown Reaction Antihistamine Allergy (Unknown, Uncoded 05/21/23 09:56) Unknown Reaction Active Meds: Active Medications Generic Name Dose Route Start Last Admin Trade Name Freq PRN Reason Stop Dose Admin Albuterol 2.5 mg 04/28/24 14:21 Albuterol Neb 2.5 Mg/3 Ml Vial.Neb INHALATION 04/28/25 14:20 Q2H PRN Shortness Of Breath Heparin Sodium (Porcine) 5,000 unit 04/28/24 21:00 05/02/24 08:46 Heparin 5,000 Unit/Ml Vial SUBCUT 04/28/25 20:59 5,000 unit Q12HR DAY Administration Hydralazine HCl 10 mg 04/28/24 14:21 05/02/24 08:47 Hydralazine 20 Mg/Ml Vial IV-PUSH 04/28/25 14:20 10 mg Q4H PRN Administration if SBP > 185 Hydromorphone HCl 0.25 mg 04/29/24 03:25 05/02/24 06:43 Hydromorphone 0.5 Mg/0.5 Ml Syringe IV-PUSH 0.25 mg Q4H PRN Administration pain Sodium Chloride 1,000 mls @ 75 mls/hr 04/29/24 16:17 05/02/24 13:07 0.9% Sodium Chloride 1,000 Ml IV 04/29/25 16:16 Not Given .[id number] DAY Ondansetron HCl 4 mg 04/29/24 02:26 04/29/24 03:19 Ondansetron 4 Mg/2 Ml Vial IV-PUSH 04/29/25 02:25 4 mg Q6H PRN Administration Nausea And Vomiting Pantoprazole Sodium 40 mg 04/29/24 09:00 05/02/24 08:47 Pantoprazole 40 Mg Vial IV-PUSH 04/29/25 08:59 40 mg DAILY DAY Administration Sodium Chloride 10 ml 04/28/24 14:33 04/30/24 08:04 Sodium Chloride 0.9 % 10 Ml Vial.Pf INJECTION 04/28/25 14:32 10 ml PRN PRN Administration Dilution A&P - Hospitalist Assessment/Plan (1) Hypertension: Plan # Small bowel obstruction with previous history of complicated cholecystectomy, history of hysterectomy Pt is POD#3 status-post exploratory laparotomy with lysis of adhesions and smallbowel resection with removal of mesh on April 29, 2024 Improved. Doing quite well clinically. WBC has resolved and patient has no evidence of acute infection at this time. NG tube is currently clamped -Can hold on further IV antibiotics; had received a few days of ceftriaxone and Flagyl IV initially -Post-operative management per general surgery -Maintain NG tube until recommended for removal -Will advance diet per general surgery recommendations # Acute kidney injury on chronic kidney disease stage III Improving. creatinine down to 1.27. Previous baseline is around 1.5 -Continue maintenance fluids at 75 cc/h until eating a significant amount -Monitor BMP closely # Coronary artery disease s/p CABG in 1998 Status-post stress test in 2023 before right lower extremity femoral-popliteal bypass, per family stress test was unremarkable Denies any symptoms such as chest pain shortness of breath EKG normal sinus with right bundle branch block no ischemic findings -Monitor on telemetry # Hypertension-Patient n.p.o. with NG tube in place, hold on any antihypertensives for now, given no p.o intake # Microscopic colitis, does not need IV steroids # Previous history of C. difficile colitis- Will discontinue further antibiotics # DVT prophylaxis: heparin subQ # CODE STATUS: Full Code Documented By: Dereje Gil MD 1659 Signed By: 05/02/24 1709 [facility]03-25-2025 Progress note Author Tyrese Girard [facility] Note Date/Time May 02, 2024 9:4 7am [facility] [address] [place] [address] General Surgery Progress Note Signed Patient: Sage Hsu MR#: [id number] : 1935 Acct:[id number] Age/Sex: 88 / F Adm Date: 5 Loc: 4N Room: 9C7265-6 Type: ADM IN Attending Dr: Dereje Gil MD Copies to: ~ Date of Service: 05/02/2024 Subjective Subjective Patient reports: no new complaints, feels better, flatus, no bowel movement and afebrile HPI: Patient 88 year old female, is on post op day 3 for Exploratory laparotomy, Lysis of adhesions,Small bowel resection,Removal of mesh. Patient is awake and responsive. She states she is feeling better than yesterday.She worked with Physical therapy. She denies fever, nausea, vomiting. NG tube in place which hasdrained at total of 1100 ml. Making adequate urine with Beckman catheter in place.Patient continues to have pain at her wound site, particularly when she coughs. Wound vac in place. Patient has had flatulence but has not had a bowel movement WBC 11 HgB 3.13 and Hct 9.2 Lactic Acid: 0.5 Vital signs Stable Hypertensice Allergies & Medications Medications and Allergies Allergies Penicillins Allergy (Severe, Verified 04/13/24 14:59) Rash levofloxacin Allergy (Unknown, Verified 04/13/24 14:59) shaking promethazine (From Phenergan) Allergy (Unknown, Verified 04/13/24 14:59) Vomiting, anaphylaxis ezetimibe Allergy (Verified 04/13/24 14:59) Unknown Reaction gemfibrozil Allergy (Verified 04/13/24 14:59) Unknown Reaction Histamine H2 Inhibitors Allergy (Verified 04/13/24 14:59) Unknown Reaction propoxyphene Allergy (Verified 04/13/24 14:59) Unknown Reaction Antihistamine Allergy (Unknown, Uncoded 05/21/23 09:56) Unknown Reaction Home Medications cholecalciferol (vitamin D3) 50 mcg (2,000 unit) tablet (Vitamin D3) 2,000 unit PO DAILY 12/06/17 [History Confirmed 04/28/24] Lactobacillus acidophilus-Bifidobac.animalis 2.5 billion cell capsule (Daily Probiotic) 1 cap PO DAILY 04/15/23 [History Confirmed 04/28/24] clopidogrel 75 mg tablet 75 mg PO DAILY 04/15/23 [History Confirmed 04/28/24] estradiol 0.01% (0.1 mg/gram) vaginal cream See Rx Instructions .Route .COMPLEX #42.5 grams 04/26/23 [Rx Confirmed 04/29/24] bismuth subsalicylate 262 mg/15 mL oral suspension (Pepto-Bismol) 524 mg PO Q30- 60M PRN diarrhea 05/21/23 [History Confirmed 04/28/24] pantoprazole 20 mg tablet,delayed release 20 mg PO DAILY #90 tabs 08/09/23 [Rx Confirmed 04/28/24] simvastatin 40 mg tablet 40 mg PO DAILY 08/24/23 [History Confirmed 04/28/24] budesonide 3 mg capsule,delayed,extended release 3 mg PO DAILY #90 ea 09/22/23 [Rx Confirmed 04/28/24] spironolactone 50 mg tablet See Rx Instructions .Route .COMPLEX #90 tabs 10/13/23 [Rx Confirmed 04/28/24] ascorbic acid (vitamin C) 250 mg tablet 250 mg PO BID 02/21/24 [History Confirmed 04/29/24] melatonin 3 mg capsule 6 mg PO QHS PRN sleep 02/21/24 [History Confirmed 04/28/24] nebivolol 5 mg tablet 10 mg PO DAILY 02/21/24 [History Confirmed 04/28/24] prostat PO BID 02/21/24 [History Confirmed 04/13/24] gabapentin 100 mg capsule 100 mg PO BID #60 caps 03/23/24 [Rx Confirmed 04/28/24] multivitamin (Daily Multi-Vitamin tablet) 1 tab PO DAILY 03/23/24 [History Confirmed 04/28/24] zinc acetate 50 mg (zinc) capsule (Galzin) 50 mg PO DAILY 03/23/24 [History Confirmed 04/28/24] cephalexin 500 mg capsule 500 mg PO TID 04/13/24 [History Confirmed 04/28/24] aspirin 81 mg tablet,delayed release (Adult Aspirin Regimen) 81 mg PO DAILY 04/29/24 [History Confirmed 04/29/24] loperamide 2 mg capsule (Anti-Diarrheal (loperamide)) 2 mg PO .6hr PRN loose stool 04/29/24 [History Confirmed 04/29/24] rivaroxaban 2.5 mg tablet (Xarelto) 2.5 mg PO BID blood thinner 04/29/24 [History Confirmed 04/29/24] Active Medications Albuterol (Albuterol Neb 2.5 Mg/3 Ml Vial.Neb) 2.5 mg INHALATION Q2H PRN PRN Reason: Shortness Of Breath Stop: 04/28/25 14:20 Heparin Sodium (Porcine) (Heparin 5,000 Unit/Ml Vial) 5,000 unit SUBCUT Q12HR DAY Stop: 04/28/25 20:59 Last Admin: 05/01/24 20:24 Dose: 5,000 unit Hydralazine HCl (Hydralazine 20 Mg/Ml Vial) 10 mg IV-PUSH Q4H PRN PRN Reason: if SBP > 185 Stop: 04/28/25 14:20 Last Admin: 05/01/24 17:01 Dose: 10 mg Hydromorphone HCl (Hydromorphone 0.5 Mg/0.5 Ml Syringe) 0.25 mg IV-PUSH Q4H PRN PRN Reason: pain Last Admin: 05/02/24 06:43 Dose: 0.25 mg Sodium Chloride (0.9% Sodium Chloride 1,000 Ml) 1,000 mls @ 75 mls/hr IV .[id number] [facility] Stop: 04/29/25 16:16 Last Admin: 05/02/24 03:00 Dose: 75 mls/hr Ondansetron HCl (Ondansetron 4 Mg/2 Ml Vial) 4 mg IV-PUSH Q6H PRN PRN Reason: Nausea And Vomiting Stop: 04/29/25 02:25 Last Admin: 04/29/24 03:19 Dose: 4 mg Pantoprazole Sodium (Pantoprazole 40 Mg Vial) 40 mg IV-PUSH DAILY DAY Stop: 04/29/25 08:59 Last Admin: 05/01/24 09:53 Dose: 40 mg Sodium Chloride (Sodium Chloride 0.9 % 10 Ml Vial.Pf) 10 ml INJECTION PRN PRN PRN Reason: Dilution Stop: 04/28/25 14:32 Last Admin: 04/30/24 08:04 Dose: 10 ml Exam Physical Exam Vital Signs: Temp Pulse Resp BP Pulse Ox O2 Del Method O2 Flow Rate 98.0 F 74 18 177/64 H 96 Nasal Cannula 2 05/01/24 21:10 05/02/24 00:13 05/02/24 00:13 05/02/24 00:13 05/02/24 00:13 05/02/24 00:13 05/02/24 00:13 Const General: cooperative, healthy appearing, comfortable and no acute distress Orientation: alert, awake and oriented x3 HEENT Nose: external nose normal Mouth: oral mucosae normal Other: NG tube in place. Nasal Canula Eyes Conjunctivae: conjunctivae normal Sclera: sclerae normal (Aniteric) Resp Effort & Inspection: normal respiratory effort, able to speak in complete sentences and symmetric chest movement Auscultation: clear to auscultation bilaterally, no rales, no rhonchi and no wheezes Cardio Palpation: normal PMI Rate: regular rate Rhythm: regular rhythm Pulses: radial pulses present GI Inspection: normal to inspection, non-distended and incision (Prevena Vac in place) Palpation: soft, no guarding, not rigid and nontender Auscultation: normal bowel sounds Other: Beckman Catheter in place Neuro General: patient alert, patient awake and patient oriented x3 Cognition: normal cognition Speech: speech normal Psych Affect: normal affect Attitude: cooperative Thought Content: normal Objective Pain Assessment Abdomen: Pain Description: Intermittent, Aching and Soreness Pain Intensity: 5 Intake & Output 24 hour I&O: Intake & Output 05/01/24 05/01/24 05/02/24 15:59 23:59 07:59 Intake Total 999 / 2024 Output Total 1300 / 1950 100 / 100 Balance -300 / 75 -100 / -100 Weight 72 kg Labs 05/02/24 05:10 05/02/24 05:10 Laboratory Results - Last 48 hrs. 05/02/24 05:10: Corrected WBC 11.0, Uncorrected WBC Count 11.0, RBC 3.12 L, Hgb 9.3 L, Hct 27.5 L, MCV 88.1, MCH 30.0, MCHC 34.0, RDW 15.4 H, Plt Count 289, MPV7.7, Neut % (Auto) 84.4, Lymph % (Auto) 5.5, [place] % (Auto) 8.8, Eos % (Auto) 1.2, Baso % (Auto) 0.1, Nucleat RBC Rel Count 0.0, Neut # (Auto) 9.3 H, Lymph # (Auto) 0.6 L, [place] # (Auto) 1.0 H, Eos # (Auto) 0.1, Baso # (Auto) 0.0, PHA Creatinine Clear 33.75, Sodium 136, Potassium 3.8, Chloride 107, Carbon Dioxide 21.0, Anion Gap 11.8, BUN 35 H, Creatinine 1.27 H, Est GFR (CKD-EPI) 40.930, Glucose 68 L, Calcium 8.0 L, Total Bilirubin 0.5, AST 15, ALT 9, Alkaline Phosphatase 15 L, Total Protein 4.8 L, Albumin 2.8 L, Globulin 2.0, Albumin/Globulin Ratio 1.4 05/01/24 08:44: Lactic Acid 0.5 05/01/24 05:29: Corrected WBC 10.9, Uncorrected WBC Count 10.9, RBC 3.13 L, Hgb 9.2 L, Hct 27.5 L, MCV 88.1, MCH 29.4, MCHC 33.4, RDW 15.7 H, Plt Count 294, MPV7.2, Neut % (Auto) 81.9, Lymph % (Auto) 6.9, [place] % (Auto) 10.6, Eos % (Auto) 0.4, Baso % (Auto) 0.2, Nucleat RBC Rel Count 0.0, Neut # (Auto) 9.0 H, Lymph # (Auto) 0.8 L, [place] # (Auto) 1.2 H, Eos # (Auto) 0.0, Baso # (Auto) 0.0, PHA Creatinine Clear 28.01, Sodium 139, Potassium 4.3, Chloride 112 H, Carbon Dioxide 23.5, Anion Gap 7.8, BUN 40 H, Creatinine 1.53 H, Est GFR (CKD-EPI) 32.732, Glucose 76, Calcium 7.8 L Microbiology Microbiology 04/28/24 14:05 Blood - Right Antecubital Blood Culture - Preliminary No Growth 3 Days 04/28/24 14:13 Blood - Right Antecubital Blood Culture - Preliminary No Growth 3 Days 04/29/24 11:17 Ascites Fluid Aerobic Culture - Final No Growth 2 Days 04/29/24 11:17 Ascites Fluid Anaerobic Culture - Preliminary No Anaerobes Isolated 2 Days 04/29/24 11:17 Ascites Fluid Gram Stain - Final A&P - General Surgery Assessment/Plan (1) Status post small bowel resection: (2) Bowel obstruction: Qualifiers: Intestinal obstruction type: other intestinal obstruction Intestinal obstruction extent: unspecified extent Qualified Code(s): K56.699 - Other intestinal obstruction unspecified as to partial versus complete obstruction (3) Chronic colitis: Plan Discontinue NG tube. Start clear liquids. Discontinue Beckman catheter. Increase activity. Continue OT/PT. Continue Prevena VAC. Documented By: Tyrese Girard MD 05/02/2459 Signed By: <Electronically signed by MD Tyrese Girard> 05/02/24 6958 [facility] Work Phone: 1(296) 752-524803-25-2025 [place] [id number] General Surgery Progress Note Signed Patient: Sage Hsu MR#: [id number] : 1935 Acct:[id number] Age/Sex: 88 / F Adm Date: 5 Loc: 4N Room: [address] [place] [address] Type: ADM IN Attending Dr: Dereje Gil MD Copies to: ~ Date of Service: 05/02/2024 Subjective Subjective Patient reports: no new complaints, feels better, flatus, no bowel movement and afebrile HPI: Patient 88 year old female, is on post op day 3 for Exploratory laparotomy, Lysis of adhesions,Small bowel resection,Removal of mesh. Patient is awake and responsive. She states she is feeling betterthan yesterday.She worked with Physical therapy. She denies fever, nausea, vomiting. NG tube in place which hasdrained at total of 1100 ml. Making adequate urine with Beckman catheter in place.Patient continues to have pain at her wound site, particularly when she coughs. Wound vac in place. Patient has had flatulence but has not had a bowel movement WBC 11 HgB 3.13 and Hct 9.2 Lactic Acid: 0.5 Vital signs Stable Hypertensice Allergies & Medications Medications and Allergies Allergies Penicillins Allergy (Severe, Verified 04/13/24 14:59) Rash levofloxacin Allergy (Unknown, Verified 04/13/24 14:59) shaking promethazine (From Phenergan) Allergy (Unknown, Verified 04/13/24 14:59) Vomiting, anaphylaxis ezetimibe Allergy (Verified 04/13/24 14:59) Unknown Reaction gemfibrozil Allergy (Verified 04/13/24 14:59) Unknown Reaction Histamine H2 Inhibitors Allergy (Verified 04/13/24 14:59) Unknown Reaction propoxyphene Allergy (Verified 04/13/24 14:59) Unknown Reaction Antihistamine Allergy (Unknown, Uncoded 05/21/23 09:56) Unknown Reaction Home Medications cholecalciferol (vitamin D3) 50 mcg (2,000 unit) tablet (Vitamin D3) 2,000 unit PO DAILY 12/06/17 [History Confirmed 04/28/24] Lactobacillus acidophilus-Bifidobac.animalis 2.5 billion cell capsule (Daily Probiotic) 1 cap PO DAILY 04/15/23 [History Confirmed 04/28/24] clopidogrel 75 mg tablet 75 mg PO DAILY 04/15/23 [History Confirmed 04/28/24] estradiol 0.01% (0.1 mg/gram) vaginal cream See Rx Instructions .Route .COMPLEX #42.5 grams 04/26/23 [Rx Confirmed 04/29/24] bismuth subsalicylate 262 mg/15 mL oral suspension (Pepto-Bismol) 524 mg PO Q30- 60M PRN diarrhea 05/21/23 [History Confirmed 04/28/24] pantoprazole 20 mg tablet,delayed release 20 mg PO DAILY #90 tabs 08/09/23 [Rx Confirmed 04/28/24] simvastatin 40 mg tablet 40 mg PO DAILY 08/24/23 [History Confirmed 04/28/24] budesonide 3 mg capsule,delayed,extended release 3 mg PO DAILY #90 ea 09/22/23 [Rx Confirmed 04/28/24] spironolactone 50 mg tablet See Rx Instructions .Route .COMPLEX #90 tabs 10/13/23 [Rx Confirmed 04/28/24] ascorbic acid (vitamin C) 250 mg tablet 250 mg PO BID 02/21/24 [History Confirmed 04/29/24] melatonin 3 mg capsule 6 mg PO QHS PRN sleep 02/21/24 [History Confirmed 04/28/24] nebivolol 5 mg tablet 10 mg PO DAILY 02/21/24 [History Confirmed 04/28/24] prostat PO BID 02/21/24 [History Confirmed 04/13/24] gabapentin 100 mg capsule 100 mg PO BID #60 caps 03/23/24 [Rx Confirmed 04/28/24] multivitamin (Daily Multi-Vitamin tablet) 1 tab PO DAILY 03/23/24 [History Confirmed 04/28/24] zinc acetate 50 mg (zinc) capsule (Galzin) 50 mg PO DAILY 03/23/24 [History Confirmed 04/28/24] cephalexin 500 mg capsule 500 mg PO TID 04/13/24 [History Confirmed 04/28/24] aspirin 81 mg tablet,delayed release (Adult Aspirin Regimen) 81 mg PO DAILY 04/29/24 [History Confirmed 04/29/24] loperamide 2 mg capsule (Anti-Diarrheal (loperamide)) 2 mg PO .6hr PRN loose stool 04/29/24 [History Confirmed 04/29/24] rivaroxaban 2.5 mg tablet (Xarelto) 2.5 mg PO BID blood thinner 04/29/24 [History Confirmed 04/29/24] Active Medications Albuterol (Albuterol Neb 2.5 Mg/3 Ml Vial.Neb) 2.5 mg INHALATION Q2H PRN PRN Reason: Shortness Of Breath Stop: 04/28/25 14:20 Heparin Sodium (Porcine) (Heparin 5,000 Unit/Ml Vial) 5,000 unit SUBCUT Q12HR [facility] Stop: 04/28/25 20:59 Last Admin: 05/01/24 20:24 Dose: 5,000 unit Hydralazine HCl (Hydralazine 20 Mg/Ml Vial) 10 mg IV-PUSH Q4H PRN PRN Reason: if SBP > 185 Stop: 04/28/25 14:20 Last Admin: 05/01/24 17:01 Dose: 10 mg Hydromorphone HCl (Hydromorphone 0.5 Mg/0.5 Ml Syringe) 0.25 mg IV-PUSH Q4H PRN PRN Reason: pain Last Admin: 05/02/24 06:43 Dose: 0.25 mg Sodium Chloride (0.9% Sodium Chloride 1,000 Ml) 1,000 mls @ 75 mls/hr IV .[id number] [facility] Stop: 04/29/25 16:16 Last Admin: 05/02/24 03:00 Dose: 75 mls/hr Ondansetron HCl (Ondansetron 4 Mg/2 Ml Vial) 4 mg IV-PUSH Q6H PRN PRN Reason: Nausea And Vomiting Stop: 04/29/25 02:25 Last Admin: 04/29/24 03:19 Dose: 4 mg Pantoprazole Sodium (Pantoprazole 40 Mg Vial) 40 mg IV-PUSH DAILY DAY Stop: 04/29/25 08:59 Last Admin: 05/01/24 09:53 Dose: 40 mg Sodium Chloride (Sodium Chloride 0.9 % 10 Ml Vial.Pf) 10 ml INJECTION PRN PRN PRN Reason: Dilution Stop: 04/28/25 14:32 Last Admin: 04/30/24 08:04 Dose: 10 ml Exam Physical Exam Vital Signs: Temp Pulse Resp BP Pulse Ox O2 Del Method O2 Flow Rate 98.0 F 74 18 177/64 H 96 Nasal Cannula 2 05/01/24 21:10 05/02/24 00:13 05/02/24 00:13 05/02/24 00:13 05/02/24 00:13 05/02/24 00:13 05/02/24 00:13 Const General: cooperative, healthy appearing, comfortable and no acute distress Orientation: alert, awake and oriented x3 HEENT Nose: external nose normal Mouth: oral mucosae normal Other: NG tube in place. Nasal Canula Eyes Conjunctivae: conjunctivae normal Sclera: sclerae normal ([employer]) Resp Effort & Inspection: normal respiratory effort, able to speak in complete sentences and symmetric chest movement Auscultation: clear to auscultation bilaterally, no rales, no rhonchi and no wheezes Cardio Palpation: normal PMI Rate: regular rate Rhythm: regular rhythm Pulses: radial pulses present GI Inspection: normal to inspection, non-distended and incision (Prevena Vac in place) Palpation: soft, no guarding, not rigid and nontender Auscultation: normal bowel sounds Other: Beckman Catheter in place Neuro General: patient alert, patient awake and patient oriented x3 Cognition: normal cognition Speech: speech normal Psych Affect: normal affect Attitude: cooperative Thought Content: normal Objective Pain Assessment Abdomen: Pain Description: Intermittent, Aching and Soreness Pain Intensity: 5 Intake & Output 24 hour I&O: Intake & Output 05/01/24 05/01/24 05/02/24 15:59 23:59 07:59 Intake Total 999 Output Total 1300 / 1950 100 / 100 Balance -300 / 75 -100 / -100 Weight 72 kg Labs 05/02/24 05:10 05/02/24 05:10 Laboratory Results - Last 48 hrs. 05/02/24 05:10: Corrected WBC 11.0, Uncorrected WBC Count 11.0, RBC 3.12 L, Hgb 9.3 L, Hct 27.5 L, MCV 88.1, MCH 30.0, MCHC 34.0, RDW 15.4 H, Plt Count 289, MPV7.7, Neut % (Auto) 84.4, Lymph % (Auto)5.5, [place] % (Auto) 8.8, Eos % (Auto) 1.2, Baso % (Auto) 0.1, Nucleat RBC Rel Count 0.0, Neut # (Auto) 9.3 H, Lymph # (Auto) 0.6 L, [place] # (Auto) 1.0 H, Eos # (Auto) 0.1, Baso # (Auto) 0.0, PHA Creatinine Clear 33.75, Sodium 136, Potassium 3.8, Chloride 107, Carbon Dioxide 21.0, Anion Gap 11.8, BUN 35 H, Creatinine 1.27 H, Est GFR (CKD-EPI) 40.930, Glucose 68 L, Calcium 8.0 L, Total Bilirubin 0.5,AST 15, ALT 9, Alkaline Phosphatase 15 L, Total Protein 4.8 L, Albumin 2.8 L, Globulin 2.0, Albumin/ Globulin Ratio 1.4 05/01/24 08:44: Lactic Acid 0.5 05/01/24 05:29: Corrected WBC 10.9, Uncorrected WBC Count 10.9, RBC 3.13 L, Hgb 9.2 L, Hct 27.5 L, MCV 88.1, MCH 29.4, MCHC 33.4, RDW 15.7 H, Plt Count 294, MPV7.2, Neut % (Auto) 81.9, Lymph % (Auto)6.9, [place] % (Auto) 10.6, Eos % (Auto) 0.4, Baso % (Auto) 0.2, Nucleat RBC Rel Count 0.0, Neut # (Auto) 9.0 H, Lymph # (Auto) 0.8 L, [place] # (Auto) 1.2 H, Eos # (Auto) 0.0, Baso # (Auto) 0.0, PHA Creatinine Clear 28.01, Sodium 139, Potassium 4.3, Chloride 112 H, Carbon Dioxide 23.5, Anion Gap 7.8, BUN 40 H, Creatinine 1.53 H, Est GFR (CKD-EPI) 32.732, Glucose 76, Calcium 7.8 L Microbiology Microbiology 04/28/24 14:05 Blood - Right Antecubital Blood Culture - Preliminary No Growth 3 Days 04/28/24 14:13 Blood - Right Antecubital Blood Culture - Preliminary No Growth 3 Days 04/29/24 11:17 Ascites Fluid Aerobic Culture - Final No Growth 2 Days 04/29/24 11:17 Ascites Fluid Anaerobic Culture - Preliminary No Anaerobes Isolated 2 Days 04/29/24 11:17 Ascites Fluid Gram Stain - Final A&P - General Surgery Assessment/Plan (1) Status post small bowel resection: (2) Bowel obstruction: Qualifiers: Intestinal obstruction type: other intestinal obstruction Intestinal obstruction extent: unspecified extent Qualified Code(s): K56.699 - Other intestinal obstruction unspecified as to partial versus complete obstruction (3) Chronic colitis: Plan Discontinue NG tube. Start clear liquids. Discontinue Beckman catheter. Increase activity. Continue OT/PT. Continue Prevena VAC. Documented By: Tyrese Girard MD 05/02/24 0659 Signed By: 05/02/24 0947 [facility]03-24-2025 Progress note Author Dereje Gil [facility] Note Date/Time May 01, 2024 1:1 5pm [facility] [address] [place] [address] Hospitalist Progress Note Signed Patient: Sage Hsu MR#: [id number] : 1935 Acct:[id number] Age/Sex: 88 / F Adm Date: 5 Loc: Room: [address] [place] [address] Type: ADM IN Attending Dr: Dereje Gil MD Copies to: ~ Date of Service: 05/01/2024 Subjective Subjective Narrative: Patient feels somewhat improved today, though generally overall main complaint is that she is feeling cold. Does have multiple blankets on her. Otherwise, she is tolerating the NG tube reasonably well. Denies any significant abdominalpain or discomfort. She feels her pain control is well-managed at this point. She has not passed flatus or had a bowel movement. She was able to work with physical and Occupational Therapy today. Exam Physical Exam Vital Signs: Temp Pulse Resp BP Pulse Ox O2 Del Method O2 Flow Rate 97.5 F L 71 16 165/76 H 95 Room Air 2 05/01/24 12:10 05/01/24 12:10 05/01/24 12:10 05/01/24 12:10 05/01/24 12:10 05/01/24 12:10 05/01/24 10:36 Narrative: Constitutional: Frail, elderly WF, resting in chair at bedside, with NG tube andFoley catheter in place HEENT: NG tube taped into nare, canister has a significant amount of dark gastric contents; likely that these are old contents Cardiovascular: RRR, no M/R/G, normal S1 and S2 Respiratory: Clear to auscultation bilaterally, no wheezes, rales or rhonchi GI: Soft, NTND, NABS : Deferred Extremities: No clubbing, cyanosis or edema. Neuro: AAOx3, patient awake, able to follow commands, answer questions without difficulty. Skin: Anterior wound area covered with wound VAC at this time. Belly is soft, diffusely tender to moderate palpation Psych: Patient has a moderately down affect Objective Lab Results 05/01/24 05:29 05/01/24 05:29 Microbiology Results Microbiology 04/29/24 11:17 Ascites Fluid Aerobic Culture - Final No Growth 2 Days 04/29/24 11:17 Ascites Fluid Anaerobic Culture - Preliminary No Anaerobes Isolated 2 Days 04/29/24 11:17 Ascites Fluid Gram Stain - Final 04/28/24 14:05 Blood - Right Antecubital Blood Culture - Preliminary No Growth 2 Days 04/28/24 14:13 Blood - Right Antecubital Blood Culture - Preliminary No Growth 2 Days Meds Allergies and Active Meds Allergies Penicillins Allergy (Severe, Verified 04/13/24 14:59) Rash levofloxacin Allergy (Unknown, Verified 04/13/24 14:59) shaking promethazine (From Phenergan) Allergy (Unknown, Verified 04/13/24 14:59) Vomiting, anaphylaxis ezetimibe Allergy (Verified 04/13/24 14:59) Unknown Reaction gemfibrozil Allergy (Verified 04/13/24 14:59) Unknown Reaction Histamine H2 Inhibitors Allergy (Verified 04/13/24 14:59) Unknown Reaction propoxyphene Allergy (Verified 04/13/24 14:59) Unknown Reaction Antihistamine Allergy (Unknown, Uncoded 05/21/23 09:56) Unknown Reaction Active Meds: Active Medications Generic Name Dose Route Start Last Admin Trade Name Freq PRN Reason Stop Dose Admin Albuterol 2.5 mg 04/28/24 14:21 Albuterol Neb 2.5 Mg/3 Ml Vial.Neb INHALATION 04/28/25 14:20 Q2H PRN Shortness Of Breath Heparin Sodium (Porcine) 5,000 unit 04/28/24 21:00 05/01/24 09:53 Heparin 5,000 Unit/Ml Vial SUBCUT 04/28/25 20:59 5,000 unit Q12HR DAY Administration Hydralazine HCl 10 mg 04/28/24 14:21 04/29/24 00:02 Hydralazine 20 Mg/Ml Vial IV-PUSH 04/28/25 14:20 10 mg Q4H PRN Administration if SBP > 185 Hydromorphone HCl 0.25 mg 04/29/24 03:25 05/01/24 10:12 Hydromorphone 0.5 Mg/0.5 Ml Syringe IV-PUSH 0.25 mg Q4H PRN Administration pain Ceftriaxone Sodium 1 gm in 50 mls @ 100 mls/hr 04/28/24 14:30 04/30/24 14:32 Rocephin IV 100 mls/hr Q24H DAY Administration Metronidazole 500 mg in 100 mls @ 100 mls/hr 04/28/24 14:45 05/01/24 03:09 Flagyl IV 100 mls/hr Q8H DAY Administration Sodium Chloride 1,000 mls @ 75 mls/hr 04/29/24 16:17 05/01/24 09:53 0.9% Sodium Chloride 1,000 Ml IV 04/29/25 16:16 75 mls/hr .[id number] DAY Administration Ondansetron HCl 4 mg 04/29/24 02:26 04/29/24 03:19 Ondansetron 4 Mg/2 Ml Vial IV-PUSH 04/29/25 02:25 4 mg Q6H PRN Administration Nausea And Vomiting Pantoprazole Sodium 40 mg 04/29/24 09:00 05/01/24 09:53 Pantoprazole 40 Mg Vial IV-PUSH 04/29/25 08:59 40 mg DAILY DAY Administration Sodium Chloride 10 ml 04/28/24 14:33 04/30/24 08:04 Sodium Chloride 0.9 % 10 Ml Vial.Pf INJECTION 04/28/25 14:32 10 ml PRN PRN Administration Dilution A&P - Hospitalist Assessment/Plan (1) Hypertension: Plan # Small bowel obstruction with previous history of complicated cholecystectomy, history of hysterectomy Pt is POD#2 status-post exploratory laparotomy with lysis of adhesions and smallbowel resection with removal of mesh on April 29, 2024 Clinically doing quite well clinically. WBC has resolved and patient has no evidence of acute infection at this time -Can discontinue IV antibiotics with ceftriaxone and Flagyl; we are now 48 hourspostop with no signs of infection -Post-operative management per general surgery -Maintain NG tube until recommended for removal -Will advance diet per general surgery recommendations # Acute kidney injury on chronic kidney disease stage III Renal function back to baseline creatinine of 1.5 Kidney function slightly better, she did get contrast on April 25 -Continue maintenance fluids at 75 cc/h -Monitor BMP closely # Coronary artery disease s/p CABG in 1998 Status-post stress test in 2023 before right lower extremity femoral-popliteal bypass, per family stress test was unremarkable Denies any symptoms such as chest pain shortness of breath EKG normal sinus with right bundle branch block no ischemic findings -Monitor on telemetry (Not applied currently) # Hypertension-Patient n.p.o. with NG tube in place, hold on any antihypertensives for now, given no p.o intake # Microscopic colitis, does not need IV steroids # Previous history of C. difficile colitis- Will discontinue further antibioticstoday # DVT prophylaxis: heparin subQ # CODE STATUS: Full Code Documented By: Dereje Gil MD 5 [id number] Signed By: <Electronically signed by Dereje Gil MD> 05/01/24 [facility] Work Phone: 1(309) 791-950903-24-20[place] [address] Hospitalist Progress Note Signed Patient: Sage Hsu MR#: [id number] : 1935 Acct:[id number] Age/Sex: 88 / F Adm Date: 5 Loc: 4N Room: 1I5259-4 Type: ADM IN Attending Dr: Dereje Gil MD Copies to: ~ Date of Service: 05/01/2024 Subjective Subjective Narrative: Patient feels somewhat improved today, though generally overall main complaint is that she is feeling cold. Does have multiple blankets on her. Otherwise, she is tolerating the NG tube reasonably well. Denies any significant abdominalpain or discomfort. She feels her pain control is well-managed atthis point. She has not passed flatus or had a bowel movement. She was able to work with physical an d Occupational Therapy today. Exam Physical Exam Vital Signs: Temp Pulse Resp BP Pulse Ox O2 Del Method O2 Flow Rate 97.5 F L 71 16 165/76 H 95 Room Air 2 05/01/24 12:10 05/01/24 12:10 05/01/24 12:10 05/01/24 12:10 05/01/24 12:10 05/01/24 12:10 05/01/24 10:36 Narrative: Constitutional: Frail, elderly WF, resting in chair at bedside, with NG tube andFoley catheter in place HEENT: NG tube taped into nare, canister has a significant amount of dark gastric contents; likely that these are old contents Cardiovascular: RRR, no M/R/G, normal S1 and S2 Respiratory: Clear to auscultation bilaterally, no wheezes, rales or rhonchi GI: Soft, NTND, NABS : Deferred Extremities: No clubbing, cyanosis or edema. Neuro: AAOx3, patient awake, able to follow commands, answer questions without difficulty. Skin: Anterior wound area covered with wound VAC at this time. Belly is soft, diffusely tender to moderate palpation Psych: Patient has a moderately down affect Objective Lab Results 05/01/24 05:29 05/01/24 05:29 Microbiology Results Microbiology 04/29/24 11:17 Ascites Fluid Aerobic Culture - Final No Growth 2 Days 04/29/24 11:17 Ascites Fluid Anaerobic Culture - Preliminary No Anaerobes Isolated 2 Days 04/29/24 11:17 Ascites Fluid Gram Stain - Final 04/28/24 14:05 Blood - Right Antecubital Blood Culture - Preliminary No Growth 2 Days 04/28/24 14:13 Blood - Right Antecubital Blood Culture - Preliminary No Growth 2 Days Meds Allergies and Active Meds Allergies Penicillins Allergy (Severe, Verified 04/13/24 14:59) Rash levofloxacin Allergy (Unknown, Verified 04/13/24 14:59) shaking promethazine (From Phenergan) Allergy (Unknown, Verified 04/13/24 14:59) Vomiting, anaphylaxis ezetimibe Allergy (Verified 04/13/24 14:59) Unknown Reaction gemfibrozil Allergy (Verified 04/13/24 14:59) Unknown Reaction Histamine H2 Inhibitors Allergy (Verified 04/13/24 14:59) Unknown Reaction propoxyphene Allergy (Verified 04/13/24 14:59) Unknown Reaction Antihistamine Allergy (Unknown, Uncoded 05/21/23 09:56) Unknown Reaction Active Meds: Active Medications Generic Name Dose Route Start Last Admin Trade Name Freq PRN Reason Stop Dose Admin Albuterol 2.5 mg 04/28/24 14:21 Albuterol Neb 2.5 Mg/3 Ml Vial.Neb INHALATION 04/28/25 14:20 Q2H PRN Shortness Of Breath Heparin Sodium (Porcine) 5,000 unit 04/28/24 21:00 05/01/24 09:53 Heparin 5,000 Unit/Ml Vial SUBCUT 04/28/25 20:59 5,000 unit Q12HR DAY Administration Hydralazine HCl 10 mg 04/28/24 14:21 04/29/24 00:02 Hydralazine 20 Mg/Ml Vial IV-PUSH 04/28/25 14:20 10 mg Q4H PRN Administration if SBP > 185 Hydromorphone HCl 0.25 mg 04/29/24 03:25 05/01/24 10:12 Hydromorphone 0.5 Mg/0.5 Ml Syringe IV-PUSH 0.25 mg Q4H PRN Administration pain Ceftriaxone Sodium 1 gm in 50 mls @ 100 mls/hr 04/28/24 14:30 04/30/24 14:32 Rocephin IV 100 mls/hr Q24H DAY Administration Metronidazole 500 mg in 100 mls @ 100 mls/hr 04/28/24 14:45 05/01/24 03:09 Flagyl IV 100 mls/hr Q8H DAY Administration Sodium Chloride 1,000 mls @ 75 mls/hr 04/29/24 16:17 05/01/24 09:53 0.9% Sodium Chloride 1,000 Ml IV 04/29/25 16:16 75 mls/hr .[id number] DAY Administration Ondansetron HCl 4 mg 04/29/24 02:26 04/29/24 03:19 Ondansetron 4 Mg/2 Ml Vial IV-PUSH 04/29/25 02:25 4 mg Q6H PRN Administration Nausea And Vomiting Pantoprazole Sodium 40 mg 04/29/24 09:00 05/01/24 09:53 Pantoprazole 40 Mg Vial IV-PUSH 04/29/25 08:59 40 mg DAILY DAY Administration Sodium Chloride 10 ml 04/28/24 14:33 04/30/24 08:04 Sodium Chloride 0.9 % 10 Ml Vial.Pf INJECTION 04/28/25 14:32 10 ml PRN PRN Administration Dilution A&P - Hospitalist Assessment/Plan (1) Hypertension: Plan # Small bowel obstruction with previous history of complicated cholecystectomy, history of hysterectomy Pt is POD#2 status-post exploratory laparotomy with lysis of adhesions and smallbowel resection with removal of mesh on April 29, 2024 Clinically doing quite well clinically. WBC has resolved and patient has no evidence of acute infection at this time -Can discontinue IV antibiotics with ceftriaxone and Flagyl; we are now 48 hourspostop with no signs of infection -Post-operative management per general surgery -Maintain NG tube until recommended for removal -Will advance diet per general surgery recommendations # Acute kidney injury on chronic kidney disease stage III Renal function back to baseline creatinine of 1.5 Kidney function slightly better, she did get contrast on April 25 -Continue maintenance fluids at 75 cc/h -Monitor BMP closely # Coronary artery disease s/p CABG in 1998 Status-post stress test in 2023 before right lower extremity femoral-popliteal bypass, per family stress test was unremarkable Denies any symptoms such as chest pain shortness of breath EKG normal sinus with right bundle branch block no ischemic findings -Monitor on telemetry (Not applied currently) # Hypertension-Patient n.p.o. with NG tube in place, hold on any antihypertensives for now, given no p.o intake # Microscopic colitis, does not need IV steroids # Previous history of C. difficile colitis- Will discontinue further antibioticstoday # DVT prophylaxis: heparin subQ # CODE STATUS: Full Code Documented By: Dereje Gil MD 5 [id number] Signed By: 05/01/24 1315 [facility]03-24-2025 Progress note Author Tyrese Girard [facility] Note Date/Time May 01, 2024 8:0 7am [facility] [address] [place] [address] General Surgery Progress Note Signed Patient: Sage Hsu MR#: [id number] : 1935 Acct:[id number] Age/Sex: 88 / F Adm Date: 5 Loc: 4N Room: [address] [place] [address] Type: ADM IN Attending Dr: Hortensia Owen MD Copies to: ~ Date of Service: 05/01/2024 Subjective Subjective Patient reports: no new complaints, still having pain, no flatus and no bowel movement HPI: Patient 88 year old female, is on post op day 2 for Exploratory laparotomy, Lysis of adhesions,Small bowel resection,Removal of mesh. Patient is awake and responsive. She states she is feeling a little better than yesterday. She deniesfever, nausea, vomiting. NG tube in place which has drained at total of 750 ml which is 350 more than yesterday. Making adequate urine with Beckman catheter in place. Patient continues to have pain at her wound site, particularly when she coughs. Wound vac in place. Patient has still not had any flatulence and has nothad a bowel movement. She is on 2L of oxygen via nasal canula. WBC 10.9 HgB 3.13 and Hct 9.2 awaiting Chem Labs Vital signs Stable Allergies & Medications Medications and Allergies Allergies Penicillins Allergy (Severe, Verified 04/13/24 14:59) Rash levofloxacin Allergy (Unknown, Verified 04/13/24 14:59) shaking promethazine (From Phenergan) Allergy (Unknown, Verified 04/13/24 14:59) Vomiting, anaphylaxis ezetimibe Allergy (Verified 04/13/24 14:59) Unknown Reaction gemfibrozil Allergy (Verified 04/13/24 14:59) Unknown Reaction Histamine H2 Inhibitors Allergy (Verified 04/13/24 14:59) Unknown Reaction propoxyphene Allergy (Verified 04/13/24 14:59) Unknown Reaction Antihistamine Allergy (Unknown, Uncoded 05/21/23 09:56) Unknown Reaction Home Medications cholecalciferol (vitamin D3) 50 mcg (2,000 unit) tablet (Vitamin D3) 2,000 unit PO DAILY 12/06/17 [History Confirmed 04/28/24] Lactobacillus acidophilus-Bifidobac.animalis 2.5 billion cell capsule (Daily Probiotic) 1 cap PO DAILY 04/15/23 [History Confirmed 04/28/24] clopidogrel 75 mg tablet 75 mg PO DAILY 04/15/23 [History Confirmed 04/28/24] estradiol 0.01% (0.1 mg/gram) vaginal cream See Rx Instructions .Route .COMPLEX #42.5 grams 04/26/23 [Rx Confirmed 04/29/24] bismuth subsalicylate 262 mg/15 mL oral suspension (Pepto-Bismol) 524 mg PO Q30- 60M PRN diarrhea 05/21/23 [History Confirmed 04/28/24] pantoprazole 20 mg tablet,delayed release 20 mg PO DAILY #90 tabs 08/09/23 [Rx Confirmed 04/28/24] simvastatin 40 mg tablet 40 mg PO DAILY 08/24/23 [History Confirmed 04/28/24] budesonide 3 mg capsule,delayed,extended release 3 mg PO DAILY #90 ea 09/22/23 [Rx Confirmed 04/28/24] spironolactone 50 mg tablet See Rx Instructions .Route .COMPLEX #90 tabs 10/13/23 [Rx Confirmed 04/28/24] ascorbic acid (vitamin C) 250 mg tablet 250 mg PO BID 02/21/24 [History Confirmed 04/29/24] melatonin 3 mg capsule 6 mg PO QHS PRN sleep 02/21/24 [History Confirmed 04/28/24] nebivolol 5 mg tablet 10 mg PO DAILY 02/21/24 [History Confirmed 04/28/24] prostat PO BID 02/21/24 [History Confirmed 04/13/24] gabapentin 100 mg capsule 100 mg PO BID #60 caps 03/23/24 [Rx Confirmed 04/28/24] multivitamin (Daily Multi-Vitamin tablet) 1 tab PO DAILY 03/23/24 [History Confirmed 04/28/24] zinc acetate 50 mg (zinc) capsule (Galzin) 50 mg PO DAILY 03/23/24 [History Confirmed 04/28/24] cephalexin 500 mg capsule 500 mg PO TID 04/13/24 [History Confirmed 04/28/24] aspirin 81 mg tablet,delayed release (Adult Aspirin Regimen) 81 mg PO DAILY 04/29/24 [History Confirmed 04/29/24] loperamide 2 mg capsule (Anti-Diarrheal (loperamide)) 2 mg PO .6hr PRN loose stool 04/29/24 [History Confirmed 04/29/24] rivaroxaban 2.5 mg tablet (Xarelto) 2.5 mg PO BID blood thinner 04/29/24 [History Confirmed 04/29/24] Active Medications Albuterol (Albuterol Neb 2.5 Mg/3 Ml Vial.Neb) 2.5 mg INHALATION Q2H PRN PRN Reason: Shortness Of Breath Stop: 04/28/25 14:20 Heparin Sodium (Porcine) (Heparin 5,000 Unit/Ml Vial) 5,000 unit SUBCUT Q12HR [facility] Stop: 04/28/25 20:59 Last Admin: 04/30/24 20:40 Dose: 5,000 unit Hydralazine HCl (Hydralazine 20 Mg/Ml Vial) 10 mg IV-PUSH Q4H PRN PRN Reason: if SBP > 185 Stop: 04/28/25 14:20 Last Admin: 04/29/24 00:02 Dose: 10 mg Hydromorphone HCl (Hydromorphone 0.5 Mg/0.5 Ml Syringe) 0.25 mg IV-PUSH Q4H PRN PRN Reason: pain Last Admin: 05/01/24 03:08 Dose: 0.25 mg Ceftriaxone Sodium (Rocephin) 1 gm in 50 mls @ 100 mls/hr IV Q24H [facility] Last Admin: 04/30/24 14:32 Dose: 100 mls/hr Metronidazole (Flagyl) 500 mg in 100 mls @ 100 mls/hr IV Q8H [facility] Last Admin: 05/01/24 03:09 Dose: 100 mls/hr Sodium Chloride (0.9% Sodium Chloride 1,000 Ml) 1,000 mls @ 75 mls/hr IV .[id number] [facility] Stop: 04/29/25 16:16 Last Admin: 04/30/24 18:32 Dose: 75 mls/hr Ondansetron HCl (Ondansetron 4 Mg/2 Ml Vial) 4 mg IV-PUSH Q6H PRN PRN Reason: Nausea And Vomiting Stop: 04/29/25 02:25 Last Admin: 04/29/24 03:19 Dose: 4 mg Pantoprazole Sodium (Pantoprazole 40 Mg Vial) 40 mg IV-PUSH DAILY DAY Stop: 04/29/25 08:59 Last Admin: 04/30/24 08:03 Dose: 40 mg Sodium Chloride (Sodium Chloride 0.9 % 10 Ml Vial.Pf) 10 ml INJECTION PRN PRN PRN Reason: Dilution Stop: 04/28/25 14:32 Last Admin: 04/30/24 08:04 Dose: 10 ml Exam Physical Exam Vital Signs: Temp Pulse Resp BP Pulse Ox O2 Del Method O2 Flow Rate 98.4 F 66 19 164/57 H 93 L Room Air 2 05/01/24 03:10 05/01/24 03:10 05/01/24 03:10 05/01/24 03:10 05/01/24 03:10 05/01/24 03:10 04/30/24 19:43 Const General: cooperative, comfortable and no acute distress Orientation: alert, awake and oriented x3 HEENT Nose: external nose normal Mouth: oral mucosae normal Other: Nasal canula and NG tube in place Eyes Conjunctivae: conjunctivae normal Sclera: sclerae normal (aniteric) Resp Effort & Inspection: normal respiratory effort, able to speak in complete sentences, symmetric chest movement and no cough Auscultation: clear to auscultation bilaterally, no rales, no rhonchi and no wheezes Cardio Rate: regular rate Rhythm: regular rhythm Pulses: radial pulses present GI Inspection: non-distended and incision (Prevena VAC in place) Palpation: soft, not firm, no guarding and tender Auscultation: normal bowel sounds Other: beckman catheter in place. Making adequate urine Neuro General: patient alert, patient awake and patient oriented x3 Psych Affect: normal affect Attitude: cooperative Thought Process: normal Objective Pain Assessment Abdomen: Pain Description: Intermittent and Acute Pain Intensity: 9 Intake & Output 24 hour I&O: Intake & Output 04/30/24 04/30/24 05/01/24 15:59 23:59 07:59 Intake Total 100 / 2320 1120 / 2320 Output Total 575 / 1200 175 / 1200 650 / 650 Balance -475 / 1120 945 / 1120 -625 / -625 Weight 71.6 kg Labs 05/01/24 05:29 05/01/24 05:29 Laboratory Results - Last 48 hrs. 05/01/24 05:29: Corrected WBC 10.9, Uncorrected WBC Count 10.9, RBC 3.13 L, Hgb 9.2 L, Hct 27.5 L, MCV 88.1, MCH 29.4, MCHC 33.4, RDW 15.7 H, Plt Count 294, MPV7.2, Neut % (Auto) 81.9, Lymph % (Auto) 6.9, [place] % (Auto) 10.6, Eos % (Auto) 0.4, Baso % (Auto) 0.2, Nucleat RBC Rel Count 0.0, Neut # (Auto) 9.0 H, Lymph # (Auto) 0.8 L, [place] # (Auto) 1.2 H, Eos # (Auto) 0.0, Baso # (Auto) 0.0 04/30/24 04:02: Corrected WBC 13.0 H, Uncorrected WBC Count 13.0 H, RBC 3.64, Hgb 10.6 L, Hct 31.9 L, MCV 87.7, MCH 29.2, MCHC 33.3, RDW 15.4 H, Plt Count 401, MPV 7.3, Neut % (Auto) 87.5, Lymph % (Auto) 2.4, [place] % (Auto) 10.1, Eos % (Auto) 0.0, Baso % (Auto) 0.0, Nucleat RBC Rel Count 0.0, Neut # (Auto) 11.3 H, Lymph # (Auto) 0.3 L, [place] # (Auto) 1.3 H, Eos # (Auto) 0.0, Baso # (Auto) 0.0, PHA Creatinine Clear 25.82, Sodium 137, Potassium 4.8, Chloride 108 H, Carbon Dioxide 22.5, Anion Gap 11.3, BUN 47 H, Creatinine 1.66 H, Est GFR (CKD-EPI) 29.680, Glucose 104 H, Calcium 8.2 L 04/29/24 23:28: POC Glucose 107 04/29/24 05:04: Corrected WBC 18.6 H, Uncorrected WBC Count 18.6 H, RBC 3.85, Hgb 11.4 L, Hct 33.3 L, MCV 86.5, MCH 29.5, MCHC 34.1, RDW 15.3, Plt Count 590 H, MPV 7.2, Neut % (Auto) 89.2, Lymph % (Auto) 1.7, [place] % (Auto) 8.7, Eos % (Auto) 0.0, Baso % (Auto) 0.4, Nucleat RBC Rel Count 0.1, Neut # (Auto) 16.5 H, Lymph # (Auto) 0.3 L, [place] # (Auto) 1.6 H, Eos # (Auto) 0.0, Baso # (Auto) 0.1, Platelet Estimate Increased, Plt Morphology Comment Normal, RBC Morphology N/A, Poikilocytosis Slight, Anisocytosis Slight, Microcytosis Slight, Ovalocytes Slight, Acanthocytes (Spur) Slight, PHA Creatinine Clear 22.21, Sodium 133 L, Potassium 4.5, Chloride 102, Carbon Dioxide 22.9, Anion Gap 12.6, BUN 50 H, Creatinine 1.93 H, Est GFR (CKD-EPI) 24.770, Glucose 121 H, Calcium 8.8 Microbiology Microbiology 04/28/24 14:05 Blood - Right Antecubital Blood Culture - Preliminary No Growth 2 Days 04/28/24 14:13 Blood - Right Antecubital Blood Culture - Preliminary No Growth 2 Days 04/29/24 11:17 Ascites Fluid Aerobic Culture - Preliminary No Growth 1 Day 04/29/24 11:17 Ascites Fluid Anaerobic Culture - Preliminary No Anaerobes Isolated 1 Day 04/29/24 11:17 Ascites Fluid Gram Stain - Final A&P - General Surgery Assessment/Plan (1) Status post small bowel resection: (2) Bowel obstruction: Qualifiers: Intestinal obstruction type: other intestinal obstruction Intestinal obstruction extent: unspecified extent Qualified Code(s): K56.699 - Other intestinal obstruction unspecified as to partial versus complete obstruction (3) Chronic colitis: Plan Patient has been hemodynamically stable. Pain much better than preoperatively. Continue nasogastric decompression. Await return of bowel function. Continue Prevena VAC. Will check lactic acid since the patient did have some ischemic bowel at surgery. Documented By: Tyrese Girard MD 05/01/24 0551 Signed By: <Electronically signed by MD Tyrese Girard> 05/01/24 0807 [facility] Work Phone: [phone]) 441-507003-24-20[place] [address] General Surgery Progress Note Signed Patient: Sage Hsu MR#: [id number] : 1935 Acct:[id number] Age/Sex: 88 / F Adm Date: 5 Loc: Room: [address] [place] [address] Type: ADM IN Attending Dr: Hortensia Owen MD Copies to: ~ Date of Service: 05/01/2024 Subjective Subjective Patient reports: no new complaints, still having pain, no flatus and no bowel movement HPI: Patient 88 year old female, is on post op day 2 for Exploratory laparotomy, Lysis of adhesions,Small bowel resection,Removal of mesh. Patient is awake and responsive. She states she is feeling a little better than yesterday. She deniesfever, nausea, vomiting. NG tube in place which has drained at total of 750 ml which is 350 more than yesterday. Making adequate urine with Beckman catheter in place.Patient continues to have pain at her wound site, particularly when she coughs. Wound vac in place.Patient has still not had any flatulence and has nothad a bowel movement. She is on 2L of oxygen via nasal canula. WBC 10.9 HgB 3.13 and Hct 9.2 awaiting Chem Labs Vital signs Stable Allergies & Medications Medications and Allergies Allergies Penicillins Allergy (Severe, Verified 04/13/24 14:59) Rash levofloxacin Allergy (Unknown, Verified 04/13/24 14:59) shaking promethazine (From Phenergan) Allergy (Unknown, Verified 04/13/24 14:59) Vomiting, anaphylaxis ezetimibe Allergy (Verified 04/13/24 14:59) Unknown Reaction gemfibrozil Allergy (Verified 04/13/24 14:59) Unknown Reaction Histamine H2 Inhibitors Allergy (Verified 04/13/24 14:59) Unknown Reaction propoxyphene Allergy (Verified 04/13/24 14:59) Unknown Reaction Antihistamine Allergy (Unknown, Uncoded 05/21/23 09:56) Unknown Reaction Home Medications cholecalciferol (vitamin D3) 50 mcg (2,000 unit) tablet (Vitamin D3) 2,000 unit PO DAILY 12/06/17 [History Confirmed 04/28/24] Lactobacillus acidophilus-Bifidobac.animalis 2.5 billion cell capsule (Daily Probiotic) 1 cap PO DAILY 04/15/23 [History Confirmed 04/28/24] clopidogrel 75 mg tablet 75 mg PO DAILY 04/15/23 [History Confirmed 04/28/24] estradiol 0.01% (0.1 mg/gram) vaginal cream See Rx Instructions .Route .COMPLEX #42.5 grams 04/26/23 [Rx Confirmed 04/29/24] bismuth subsalicylate 262 mg/15 mL oral suspension (Pepto-Bismol) 524 mg PO Q30- 60M PRN diarrhea 05/21/23 [History Confirmed 04/28/24] pantoprazole 20 mg tablet,delayed release 20 mg PO DAILY #90 tabs 08/09/23 [Rx Confirmed 04/28/24] simvastatin 40 mg tablet 40 mg PO DAILY 08/24/23 [History Confirmed 04/28/24] budesonide 3 mg capsule,delayed,extended release 3 mg PO DAILY #90 ea 09/22/23 [Rx Confirmed 04/28/24] spironolactone 50 mg tablet See Rx Instructions .Route .COMPLEX #90 tabs 10/13/23 [Rx Confirmed 04/28/24] ascorbic acid (vitamin C) 250 mg tablet 250 mg PO BID 02/21/24 [History Confirmed 04/29/24] melatonin 3 mg capsule 6 mg PO QHS PRN sleep 02/21/24 [History Confirmed 04/28/24] nebivolol 5 mg tablet 10 mg PO DAILY 02/21/24 [History Confirmed 04/28/24] prostat PO BID 02/21/24 [History Confirmed 04/13/24] gabapentin 100 mg capsule 100 mg PO BID #60 caps 03/23/24 [Rx Confirmed 04/28/24] multivitamin (Daily Multi-Vitamin tablet) 1 tab PO DAILY 03/23/24 [History Confirmed 04/28/24] zinc acetate 50 mg (zinc) capsule (Galzin) 50 mg PO DAILY 03/23/24 [History Confirmed 04/28/24] cephalexin 500 mg capsule 500 mg PO TID 04/13/24 [History Confirmed 04/28/24] aspirin 81 mg tablet,delayed release (Adult Aspirin Regimen) 81 mg PO DAILY 04/29/24 [History Confirmed 04/29/24] loperamide 2 mg capsule (Anti-Diarrheal (loperamide)) 2 mg PO .6hr PRN loose stool 04/29/24 [History Confirmed 04/29/24] rivaroxaban 2.5 mg tablet (Xarelto) 2.5 mg PO BID blood thinner 04/29/24 [History Confirmed 04/29/24] Active Medications Albuterol (Albuterol Neb 2.5 Mg/3 Ml Vial.Neb) 2.5 mg INHALATION Q2H PRN PRN Reason: Shortness Of Breath Stop: 04/28/25 14:20 Heparin Sodium (Porcine) (Heparin 5,000 Unit/Ml Vial) 5,000 unit SUBCUT Q12HR [facility] Stop: 04/28/25 20:59 Last Admin: 04/30/24 20:40 Dose: 5,000 unit Hydralazine HCl (Hydralazine 20 Mg/Ml Vial) 10 mg IV-PUSH Q4H PRN PRN Reason: if SBP > 185 Stop: 04/28/25 14:20 Last Admin: 04/29/24 00:02 Dose: 10 mg Hydromorphone HCl (Hydromorphone 0.5 Mg/0.5 Ml Syringe) 0.25 mg IV-PUSH Q4H PRN PRN Reason: pain Last Admin: 05/01/24 03:08 Dose: 0.25 mg Ceftriaxone Sodium (Rocephin) 1 gm in 50 mls @ 100 mls/hr IV Q24H [facility] Last Admin: 04/30/24 14:32 Dose: 100 mls/hr Metronidazole (Flagyl) 500 mg in 100 mls @ 100 mls/hr IV Q8H [facility] Last Admin: 05/01/24 03:09 Dose: 100 mls/hr Sodium Chloride (0.9% Sodium Chloride 1,000 Ml) 1,000 mls @ 75 mls/hr IV .[id number] [facility] Stop: 04/29/25 16:16 Last Admin: 04/30/24 18:32 Dose: 75 mls/hr Ondansetron HCl (Ondansetron 4 Mg/2 Ml Vial) 4 mg IV-PUSH Q6H PRN PRN Reason: Nausea And Vomiting Stop: 04/29/25 02:25 Last Admin: 04/29/24 03:19 Dose: 4 mg Pantoprazole Sodium (Pantoprazole 40 Mg Vial) 40 mg IV-PUSH DAILY DAY Stop: 04/29/25 08:59 Last Admin: 04/30/24 08:03 Dose: 40 mg Sodium Chloride (Sodium Chloride 0.9 % 10 Ml Vial.Pf) 10 ml INJECTION PRN PRN PRN Reason: Dilution Stop: 04/28/25 14:32 Last Admin: 04/30/24 08:04 Dose: 10 ml Exam Physical Exam Vital Signs: Temp Pulse Resp BP Pulse Ox O2 Del Method O2 Flow Rate 98.4 F 66 19 164/57 H 93 L Room Air 2 05/01/24 03:10 05/01/24 03:10 05/01/24 03:10 05/01/24 03:10 05/01/24 03:10 05/01/24 03:10 04/30/24 19:43 Const General: cooperative, comfortable and no acute distress Orientation: alert, awake and oriented x3 HEENT Nose: external nose normal Mouth: oral mucosae normal Other: Nasal canula and NG tube in place Eyes Conjunctivae: conjunctivae normal Sclera: sclerae normal (aniteric) Resp Effort & Inspection: normal respiratory effort, able to speak in complete sentences, symmetric chest movement and no cough Auscultation: clear to auscultation bilaterally, no rales, no rhonchi and no wheezes Cardio Rate: regular rate Rhythm: regular rhythm Pulses: radial pulses present GI Inspection: non-distended and incision (Prevena VAC in place) Palpation: soft, not firm, no guarding and tender Auscultation: normal bowel sounds Other: beckman catheter in place. Making adequate urine Neuro General: patient alert, patient awake and patient oriented x3 Psych Affect: normal affect Attitude: cooperative Thought Process: normal Objective Pain Assessment Abdomen: Pain Description: Intermittent and Acute Pain Intensity: 9 Intake & Output 24 hour I&O: Intake & Output 04/30/24 04/30/24 05/01/24 15:59 23:59 07:59 Intake Total 100 / 2320 1120 / 2320 Output Total 575 / 1200 175 / 1200 650 / 650 Balance -475 / 1120 945 / 1120 -625 / -625 Weight 71.6 kg Labs 05/01/24 05:29 05/01/24 05:29 Laboratory Results - Last 48 hrs. 05/01/24 05:29: Corrected WBC 10.9, Uncorrected WBC Count 10.9, RBC 3.13 L, Hgb 9.2 L, Hct 27.5 L, MCV 88.1, MCH 29.4, MCHC 33.4, RDW 15.7 H, Plt Count 294, MPV7.2, Neut % (Auto) 81.9, Lymph % (Auto)6.9, [place] % (Auto) 10.6, Eos % (Auto) 0.4, Baso % (Auto) 0.2, Nucleat RBC Rel Count 0.0, Neut # (Auto) 9.0 H, Lymph # (Auto) 0.8 L, [place] # (Auto) 1.2 H, Eos # (Auto) 0.0, Baso # (Auto) 0.0 04/30/24 04:02: Corrected WBC 13.0 H, Uncorrected WBC Count 13.0 H, RBC 3.64, Hgb 10.6 L, Hct 31.9 L, MCV 87.7, MCH 29.2, MCHC 33.3, RDW 15.4 H, Plt Count 401, MPV 7.3, Neut % (Auto) 87.5, Lymph % (Auto) 2.4, [place] % (Auto) 10.1, Eos % (Auto) 0.0, Baso % (Auto) 0.0, Nucleat RBC Rel Count 0.0, Neut #(Auto) 11.3 H, Lymph # (Auto) 0.3 L, [place] # (Auto) 1.3 H, Eos # (Auto) 0.0, Baso # (Auto) 0.0, PHA Creatinine Clear 25.82, Sodium 137, Potassium 4.8, Chloride 108 H, Carbon Dioxide 22.5, Anion Gap 11.3, BUN 47 H, Creatinine 1.66 H, Est GFR (CKD-EPI) 29.680, Glucose 104 H, Calcium 8.2 L 04/29/24 23:28: POC Glucose 107 04/29/24 05:04: Corrected WBC 18.6 H, Uncorrected WBC Count 18.6 H, RBC 3.85, Hgb 11.4 L, Hct 33.3 L, MCV 86.5, MCH 29.5, MCHC 34.1, RDW 15.3, Plt Count 590 H, MPV 7.2, Neut % (Auto) 89.2, Lymph % (Auto) 1.7, [place] % (Auto) 8.7, Eos % (Auto) 0.0, Baso % (Auto) 0.4, Nucleat RBC Rel Count 0.1, Neut # (Auto) 16.5 H, Lymph # (Auto) 0.3 L, [place] # (Auto) 1.6 H, Eos # (Auto) 0.0, Baso # (Auto) 0.1, Platelet Estimate Increased, Plt Morphology Comment Normal, RBC Morphology N/A, Poikilocytosis Slight, Anisocytosis Slight, Microcytosis Slight, Ovalocytes Slight, Acanthocytes (Spur) Slight, PHA Creatinine Clear 22.21, Sodium 133 L, Potassium 4.5, Chloride 102, Carbon Dioxide 22.9, Anion Gap 12.6, BUN 50 H, Creatinine 1.93 H, Est GFR (CKD-EPI) 24.770, Glucose 121 H, Calcium 8.8 Microbiology Microbiology 04/28/24 14:05 Blood - Right Antecubital Blood Culture - Preliminary No Growth 2 Days 04/28/24 14:13 Blood - Right Antecubital Blood Culture - Preliminary No Growth 2 Days 04/29/24 11:17 Ascites Fluid Aerobic Culture - Preliminary No Growth 1 Day 04/29/24 11:17 Ascites Fluid Anaerobic Culture - Preliminary No Anaerobes Isolated 1 Day 04/29/24 11:17 Ascites Fluid Gram Stain - Final A&P - General Surgery Assessment/Plan (1) Status post small bowel resection: (2) Bowel obstruction: Qualifiers: Intestinal obstruction type: other intestinal obstruction Intestinal obstruction extent: unspecified extent Qualified Code(s): K56.699 - Other intestinal obstruction unspecified as to partial versus complete obstruction (3) Chronic colitis: Plan Patient has been hemodynamically stable. Pain much better than preoperatively. Continue nasogastric decompression. Await return of bowel function. Continue Prevena VAC. Will check lactic acid since the patient did have some ischemic bowel at surgery. Documented By: Tyrese Girard MD 05/01/24 0551 Signed By: 05/01/24 0807 [facility]03-23-2025 Progress note Author Hortensia Owen [facility] Note Date/Time April 30, 2024 3:2 4pm [facility] [address] [place], [place] [id number] Hospitalist Progress Note Signed Patient: Sage Hsu MR#: [id number] : 1935 Acct:[id number] Age/Sex: 88 / F Adm Date: 5 Loc: Room: [address] [place] [address] Type: ADM IN Attending Dr: Hortensia Owen MD Copies to: ~ Date of Service: 04/30/2024 Subjective Subjective Narrative: Has been seen and examined today. Yesterday she underwent exploratory laparotomy with lysis of adhesions, afterwards was transferred to intensive careunit, doing quite well, still has NG, feels hungry, no nausea no vomiting, abdominal pain tolerable, no bowel movements, no flatus, denies any chest pain any shortness of breath Physical exam: General -patient is aware and oriented, does not appear to be in respiratory distress, does not appear to be painful, appropriate Cardiovascular -S1 with S2 Pulmonary - clear to auscultation bilaterally Gastrointestinal - abdomen is less distended compared with yesterday, soft, midincision site covered with wound VAC Extremities -1+ edema of the right lower extremity which is chronic Neurological -no focal neurological dysfunction noted Exam Physical Exam Vital Signs: Temp Pulse Resp BP Pulse Ox O2 Del Method O2 Flow Rate 36.9 C 63 15 155/74 H 94 L Nasal Cannula 2 04/30/24 08:00 04/30/24 11:00 04/30/24 11:00 04/30/24 11:00 04/30/24 11:00 04/30/24 11:00 04/30/24 11:00 Objective Lab Results 04/30/24 04:02 04/30/24 04:02 Microbiology Results Microbiology 04/29/24 11:17 Ascites Fluid Aerobic Culture - Preliminary No Growth 1 Day 04/29/24 11:17 Ascites Fluid Anaerobic Culture - Preliminary No Anaerobes Isolated 1 Day 04/29/24 11:17 Ascites Fluid Gram Stain - Final 04/28/24 14:05 Blood - Right Antecubital Blood Culture - Preliminary No Growth 1 Day 04/28/24 14:13 Blood - Right Antecubital Blood Culture - Preliminary No Growth 1 Day Meds Allergies and Active Meds Allergies Penicillins Allergy (Severe, Verified 04/13/24 14:59) Rash levofloxacin Allergy (Unknown, Verified 04/13/24 14:59) shaking promethazine (From Phenergan) Allergy (Unknown, Verified 04/13/24 14:59) Vomiting, anaphylaxis ezetimibe Allergy (Verified 04/13/24 14:59) Unknown Reaction gemfibrozil Allergy (Verified 04/13/24 14:59) Unknown Reaction Histamine H2 Inhibitors Allergy (Verified 04/13/24 14:59) Unknown Reaction propoxyphene Allergy (Verified 04/13/24 14:59) Unknown Reaction Antihistamine Allergy (Unknown, Uncoded 05/21/23 09:56) Unknown Reaction Active Meds: Active Medications Generic Name Dose Route Start Last Admin Trade Name Freq PRN Reason Stop Dose Admin Albuterol 2.5 mg 04/28/24 14:21 Albuterol Neb 2.5 Mg/3 Ml Vial.Neb INHALATION 04/28/25 14:20 Q2H PRN Shortness Of Breath Heparin Sodium (Porcine) 5,000 unit 04/28/24 21:00 04/30/24 08:03 Heparin 5,000 Unit/Ml Vial SUBCUT 04/28/25 20:59 5,000 unit Q12HR DAY Administration Hydralazine HCl 10 mg 04/28/24 14:21 04/29/24 00:02 Hydralazine 20 Mg/Ml Vial IV-PUSH 04/28/25 14:20 10 mg Q4H PRN Administration if SBP > 185 Hydromorphone HCl 0.25 mg 04/29/24 03:25 04/30/24 10:30 Hydromorphone 0.5 Mg/0.5 Ml Syringe IV-PUSH 0.25 mg Q4H PRN Administration pain Ceftriaxone Sodium 1 gm in 50 mls @ 100 mls/hr 04/28/24 14:30 04/29/24 18:59 Rocephin IV Infused Q24H DAY Infusion Metronidazole 500 mg in 100 mls @ 100 mls/hr 04/28/24 14:45 04/30/24 11:30 Flagyl IV Infused Q8H DAY Infusion Sodium Chloride 1,000 mls @ 75 mls/hr 04/29/24 16:17 04/30/24 05:11 0.9% Sodium Chloride 1,000 Ml IV 04/29/25 16:16 75 mls/hr .[id number] DAY Administration Ondansetron HCl 4 mg 04/29/24 02:26 04/29/24 03:19 Ondansetron 4 Mg/2 Ml Vial IV-PUSH 04/29/25 02:25 4 mg Q6H PRN Administration Nausea And Vomiting Pantoprazole Sodium 40 mg 04/29/24 09:00 04/30/24 08:03 Pantoprazole 40 Mg Vial IV-PUSH 04/29/25 08:59 40 mg DAILY DAY Administration Sodium Chloride 10 ml 04/28/24 14:33 04/30/24 08:04 Sodium Chloride 0.9 % 10 Ml Vial.Pf INJECTION 04/28/25 14:32 10 ml PRN PRN Administration Dilution A&P - Hospitalist Assessment/Plan (1) Hypertension: Plan 1. Suspected small bowel obstruction with previous history of complicated cholecystectomy, history of hysterectomy Status post exploratory laparotomy with lesions of adhesions and small bowel resection with removal of mesh on April 29, 2024 Clinically doing quite well 2. Acute kidney injury on chronic kidney disease stage III, with baseline creatinine 1.5 Kidney function slightly better, she did get contrast on April 25 Recheck in a.m. 3. Coronary artery disease that is post CABG in 1998, status post stress test in 2023 before right lower extremity femoral-popliteal bypass, per family stresstest was unremarkable Denies any symptoms such as chest pain shortness of breath EKG normal sinus with right bundle branch block no ischemic findings 4. Hypertension, blood pressure the higher range, continue with hydralazine 5. Microscopic colitis, does not need IV steroids, continue with beclomethasone 6. Previous history of C. difficile colitis 7. DVT prophylaxis heparin Documented By: Hortensia Owen MD 04/30/24 1420 Signed By: <Electronically signed by Hortensia Owen MD> 04/30/24 1524 [facility] Work Phone: 1(487) 841-965003-23-2025 [place] [address] Hospitalist Progress Note Signed Patient: Sage Hsu MR#: [id number] : 1935 Acct:[id number] Age/Sex: 88 / F Adm Date: 5 Loc: 4N Room: 7Y7961-7 Type: ADM IN Attending Dr: Hortensia Owen MD Copies to: ~ Date of Service: 04/30/2024 Subjective Subjective Narrative: Has been seen and examined today. Yesterday she underwent exploratory laparotomy with lysis of adhesions, afterwards was transferred to intensive careunit, doing quite well, still has NG, feels hungry, no nausea no vomiting, abdominal pain tolerable, no bowel movements, no flatus, denies any chest pain any shortness of breath Physical exam: General -patient is aware and oriented, does not appear to be in respiratory distress, does not appear to be painful, appropriate Cardiovascular -S1 with S2 Pulmonary - clear to auscultation bilaterally Gastrointestinal - abdomen is less distended compared with yesterday, soft, midincision site covered with wound VAC Extremities -1+ edema of the right lower extremity which is chronic Neurological -no focal neurological dysfunction noted Exam Physical Exam Vital Signs: Temp Pulse Resp BP Pulse Ox O2 Del Method O2 Flow Rate 36.9 C 63 15 155/74 H 94 L Nasal Cannula 2 04/30/24 08:00 04/30/24 11:00 04/30/24 11:00 04/30/24 11:00 04/30/24 11:00 04/30/24 11:00 04/30/24 11:00 Objective Lab Results 04/30/24 04:02 04/30/24 04:02 Microbiology Results Microbiology 04/29/24 11:17 Ascites Fluid Aerobic Culture - Preliminary No Growth 1 Day 04/29/24 11:17 Ascites Fluid Anaerobic Culture - Preliminary No Anaerobes Isolated 1 Day 04/29/24 11:17 Ascites Fluid Gram Stain - Final 04/28/24 14:05 Blood - Right Antecubital Blood Culture - Preliminary No Growth 1 Day 04/28/24 14:13 Blood - Right Antecubital Blood Culture - Preliminary No Growth 1 Day Meds Allergies and Active Meds Allergies Penicillins Allergy (Severe, Verified 04/13/24 14:59) Rash levofloxacin Allergy (Unknown, Verified 04/13/24 14:59) shaking promethazine (From Phenergan) Allergy (Unknown, Verified 04/13/24 14:59) Vomiting, anaphylaxis ezetimibe Allergy (Verified 04/13/24 14:59) Unknown Reaction gemfibrozil Allergy (Verified 04/13/24 14:59) Unknown Reaction Histamine H2 Inhibitors Allergy (Verified 04/13/24 14:59) Unknown Reaction propoxyphene Allergy (Verified 04/13/24 14:59) Unknown Reaction Antihistamine Allergy (Unknown, Uncoded 05/21/23 09:56) Unknown Reaction Active Meds: Active Medications Generic Name Dose Route Start Last Admin Trade Name Freq PRN Reason Stop Dose Admin Albuterol 2.5 mg 04/28/24 14:21 Albuterol Neb 2.5 Mg/3 Ml Vial.Neb INHALATION 04/28/25 14:20 Q2H PRN Shortness Of Breath Heparin Sodium (Porcine) 5,000 unit 04/28/24 21:00 04/30/24 08:03 Heparin 5,000 Unit/Ml Vial SUBCUT 04/28/25 20:59 5,000 unit Q12HR DAY Administration Hydralazine HCl 10 mg 04/28/24 14:21 04/29/24 00:02 Hydralazine 20 Mg/Ml Vial IV-PUSH 04/28/25 14:20 10 mg Q4H PRN Administration if SBP > 185 Hydromorphone HCl 0.25 mg 04/29/24 03:25 04/30/24 10:30 Hydromorphone 0.5 Mg/0.5 Ml Syringe IV-PUSH 0.25 mg Q4H PRN Administration pain Ceftriaxone Sodium 1 gm in 50 mls @ 100 mls/hr 04/28/24 14:30 04/29/24 18:59 Rocephin IV Infused Q24H DAY Infusion Metronidazole 500 mg in 100 mls @ 100 mls/hr 04/28/24 14:45 04/30/24 11:30 Flagyl IV Infused Q8H DAY Infusion Sodium Chloride 1,000 mls @ 75 mls/hr 04/29/24 16:17 04/30/24 05:11 0.9% Sodium Chloride 1,000 Ml IV 04/29/25 16:16 75 mls/hr .[id number] DAY Administration Ondansetron HCl 4 mg 04/29/24 02:26 04/29/24 03:19 Ondansetron 4 Mg/2 Ml Vial IV-PUSH 04/29/25 02:25 4 mg Q6H PRN Administration Nausea And Vomiting Pantoprazole Sodium 40 mg 04/29/24 09:00 04/30/24 08:03 Pantoprazole 40 Mg Vial IV-PUSH 04/29/25 08:59 40 mg DAILY DAY Administration Sodium Chloride 10 ml 04/28/24 14:33 04/30/24 08:04 Sodium Chloride 0.9 % 10 Ml Vial.Pf INJECTION 04/28/25 14:32 10 ml PRN PRN Administration Dilution A&P - Hospitalist Assessment/Plan (1) Hypertension: Plan 1. Suspected small bowel obstruction with previous history of complicated cholecystectomy, history of hysterectomy Status post exploratory laparotomy with lesions of adhesions and small bowel resection with removalof mesh on April 29, 2024 Clinically doing quite well 2. Acute kidney injury on chronic kidney disease stage III, with baseline creatinine 1.5 Kidney function slightly better, she did get contrast on April 25 Recheck in a.m. 3. Coronary artery disease that is post CABG in 1998, status post stress test in 2023 before right lower extremity femoral-popliteal bypass, per family stresstest was unremarkable Denies any symptoms such as chest pain shortness of breath EKG normal sinus with right bundle branch block no ischemic findings 4. Hypertension, blood pressure the higher range, continue with hydralazine 5. Microscopic colitis, does not need IV steroids, continue with beclomethasone 6. Previous history of C. difficile colitis 7. DVT prophylaxis heparin Documented By: Hortensia Owen MD 04/30/24 1420 Signed By: 04/30/24 1524 [facility]03-23-2025 Progress note Author Tyrese Girard [facility] Note Date/Time April 30, 2024 1:1 9pm [facility] [address] [place] [address] General Surgery Progress Note Signed Patient: Sage Hsu MR#: [id number] : 1935 Acct:[id number] Age/Sex: 88 / F Adm Date: 5 Loc: Room: [address] [place] [address] Type: ADM IN Attending Dr: Hortensia Owen MD Copies to: ~ Date of Service: 04/30/2024 Subjective Subjective Patient reports: no new complaints, feels better, still having pain, no flatus, no bowel movement and afebrile HPI: Patient 88 year old female, is on post op day 1 for Exploratory laparotomy, Lysis of adhesions,Small bowel resection,Removal of mesh. Patient is awake and responsive. She denies fever, nausea, vomiting. NG tube in place which has drained 400 ml. Making adequate urine with beckman catheter in place. Patient has 10/10 pain at her incision site. Wound vac in place. Patient has not had any flatulence and has not had a bowel movement. WBC decreased to 13 Vital signs Stable Allergies & Medications Medications and Allergies Allergies Penicillins Allergy (Severe, Verified 04/13/24 14:59) Rash levofloxacin Allergy (Unknown, Verified 04/13/24 14:59) shaking promethazine (From Phenergan) Allergy (Unknown, Verified 04/13/24 14:59) Vomiting, anaphylaxis ezetimibe Allergy (Verified 04/13/24 14:59) Unknown Reaction gemfibrozil Allergy (Verified 04/13/24 14:59) Unknown Reaction Histamine H2 Inhibitors Allergy (Verified 04/13/24 14:59) Unknown Reaction propoxyphene Allergy (Verified 04/13/24 14:59) Unknown Reaction Antihistamine Allergy (Unknown, Uncoded 05/21/23 09:56) Unknown Reaction Home Medications cholecalciferol (vitamin D3) 50 mcg (2,000 unit) tablet (Vitamin D3) 2,000 unit PO DAILY 12/06/17 [History Confirmed 04/28/24] Lactobacillus acidophilus-Bifidobac.animalis 2.5 billion cell capsule (Daily Probiotic) 1 cap PO DAILY 04/15/23 [History Confirmed 04/28/24] clopidogrel 75 mg tablet 75 mg PO DAILY 04/15/23 [History Confirmed 04/28/24] estradiol 0.01% (0.1 mg/gram) vaginal cream See Rx Instructions .Route .COMPLEX #42.5 grams 04/26/23 [Rx Confirmed 04/29/24] bismuth subsalicylate 262 mg/15 mL oral suspension (Pepto-Bismol) 524 mg PO Q30- 60M PRN diarrhea 05/21/23 [History Confirmed 04/28/24] pantoprazole 20 mg tablet,delayed release 20 mg PO DAILY #90 tabs 08/09/23 [Rx Confirmed 04/28/24] simvastatin 40 mg tablet 40 mg PO DAILY 08/24/23 [History Confirmed 04/28/24] budesonide 3 mg capsule,delayed,extended release 3 mg PO DAILY #90 ea 09/22/23 [Rx Confirmed 04/28/24] spironolactone 50 mg tablet See Rx Instructions .Route .COMPLEX #90 tabs 10/13/23 [Rx Confirmed 04/28/24] ascorbic acid (vitamin C) 250 mg tablet 250 mg PO BID 02/21/24 [History Confirmed 04/29/24] melatonin 3 mg capsule 6 mg PO QHS PRN sleep 02/21/24 [History Confirmed 04/28/24] nebivolol 5 mg tablet 10 mg PO DAILY 02/21/24 [History Confirmed 04/28/24] prostat PO BID 02/21/24 [History Confirmed 04/13/24] gabapentin 100 mg capsule 100 mg PO BID #60 caps 03/23/24 [Rx Confirmed 04/28/24] multivitamin (Daily Multi-Vitamin tablet) 1 tab PO DAILY 03/23/24 [History Confirmed 04/28/24] zinc acetate 50 mg (zinc) capsule (Galzin) 50 mg PO DAILY 03/23/24 [History Confirmed 04/28/24] cephalexin 500 mg capsule 500 mg PO TID 04/13/24 [History Confirmed 04/28/24] aspirin 81 mg tablet,delayed release (Adult Aspirin Regimen) 81 mg PO DAILY 04/29/24 [History Confirmed 04/29/24] loperamide 2 mg capsule (Anti-Diarrheal (loperamide)) 2 mg PO .6hr PRN loose stool 04/29/24 [History Confirmed 04/29/24] rivaroxaban 2.5 mg tablet (Xarelto) 2.5 mg PO BID blood thinner 04/29/24 [History Confirmed 04/29/24] Active Medications Albuterol (Albuterol Neb 2.5 Mg/3 Ml Vial.Neb) 2.5 mg INHALATION Q2H PRN PRN Reason: Shortness Of Breath Stop: 04/28/25 14:20 Heparin Sodium (Porcine) (Heparin 5,000 Unit/Ml Vial) 5,000 unit SUBCUT Q12HR DAY Stop: 04/28/25 20:59 Last Admin: 04/30/24 08:03 Dose: 5,000 unit Hydralazine HCl (Hydralazine 20 Mg/Ml Vial) 10 mg IV-PUSH Q4H PRN PRN Reason: if SBP > 185 Stop: 04/28/25 14:20 Last Admin: 04/29/24 00:02 Dose: 10 mg Hydromorphone HCl (Hydromorphone 0.5 Mg/0.5 Ml Syringe) 0.25 mg IV-PUSH Q4H PRN PRN Reason: pain Ceftriaxone Sodium (Rocephin) 1 gm in 50 mls @ 100 mls/hr IV Q24H [facility] Last Infusion: 04/29/24 18:59 Dose: Infused Metronidazole (Flagyl) 500 mg in 100 mls @ 100 mls/hr IV Q8H [facility] Last Admin: 04/30/24 02:54 Dose: 100 mls/hr Sodium Chloride (0.9% Sodium Chloride 1,000 Ml) 1,000 mls @ 75 mls/hr IV .[id number] [facility] Stop: 04/29/25 16:16 Last Admin: 04/30/24 05:11 Dose: 75 mls/hr Ondansetron HCl (Ondansetron 4 Mg/2 Ml Vial) 4 mg IV-PUSH Q6H PRN PRN Reason: Nausea And Vomiting Stop: 04/29/25 02:25 Last Admin: 04/29/24 03:19 Dose: 4 mg Pantoprazole Sodium (Pantoprazole 40 Mg Vial) 40 mg IV-PUSH DAILY [facility] Stop: 04/29/25 08:59 Last Admin: 04/30/24 08:03 Dose: 40 mg Sodium Chloride (Sodium Chloride 0.9 % 10 Ml Vial.Pf) 10 ml INJECTION PRN PRN PRN Reason: Dilution Stop: 04/28/25 14:32 Last Admin: 04/30/24 08:04 Dose: 10 ml Exam Physical Exam Vital Signs: Temp Pulse Resp BP Pulse Ox O2 Del Method O2 Flow Rate 98.5 F 63 15 158/70 H 94 L Nasal Cannula 2 04/30/24 08:00 04/30/24 09:00 04/30/24 09:00 04/30/24 09:00 04/30/24 09:00 04/30/24 09:00 04/30/24 09:00 Const General: cooperative, healthy appearing, comfortable and no acute distress Nutritional Appearance: average body habitus Orientation: alert, awake and oriented x3 HEENT Nose: external nose normal (NG tube in place, Nasal Canula in place) Other: Patient keeps clearing throat as she is complaining of throat irration Eyes Conjunctivae: conjunctivae normal Sclera: sclerae normal (anicteric) Resp Effort & Inspection: normal respiratory effort, able to speak in complete sentences, symmetric chest movement, no audible wheezes and no cough Auscultation: clear to auscultation bilaterally, no rales, no rhonchi and no wheezes Cardio Rate: regular rate Rhythm: regular rhythm Pulses: radial pulses present GI Inspection: non-distended and incision (Prevena VAC in place) Palpation: soft, not firm, no guarding, not rigid and tender (at incision site, wound vac in place) Auscultation: normal bowel sounds Other: beckman catheter in place Neuro General: patient alert, patient awake and patient oriented x3 Psych Affect: normal affect Attitude: cooperative Thought Process: normal Objective Pain Assessment Abdomen: Pain Description: Constant and Sharp Pain Intensity: 10 Intake & Output 24 hour I&O: Intake & Output 04/29/24 04/30/24 04/30/24 23:59 07:59 15:59 Intake Total 250 / 1520 1000 / 1000 Output Total 650 / 1650 450 / 450 Balance -400 / -130 550 / 550 Weight 71.2 kg Labs 04/30/24 04:02 04/30/24 04:02 Laboratory Results - Last 48 hrs. 04/30/24 04:02: Corrected WBC 13.0 H, Uncorrected WBC Count 13.0 H, RBC 3.64, Hgb 10.6 L, Hct 31.9 L, MCV 87.7, MCH 29.2, MCHC 33.3, RDW 15.4 H, Plt Count 401, MPV 7.3, Neut % (Auto) 87.5, Lymph % (Auto) 2.4, [place] % (Auto) 10.1, Eos % (Auto) 0.0, Baso % (Auto) 0.0, Nucleat RBC Rel Count 0.0, Neut # (Auto) 11.3 H, Lymph # (Auto) 0.3 L, [place] # (Auto) 1.3 H, Eos # (Auto) 0.0, Baso # (Auto) 0.0, PHA Creatinine Clear 25.82, Sodium 137, Potassium 4.8, Chloride 108 H, Carbon Dioxide 22.5, Anion Gap 11.3, BUN 47 H, Creatinine 1.66 H, Est GFR (CKD-EPI) 29.680, Glucose 104 H, Calcium 8.2 L 04/29/24 23:28: POC Glucose 107 04/29/24 05:04: Corrected WBC 18.6 H, Uncorrected WBC Count 18.6 H, RBC 3.85, Hgb 11.4 L, Hct 33.3 L, MCV 86.5, MCH 29.5, MCHC 34.1, RDW 15.3, Plt Count 590 H, MPV 7.2, Neut % (Auto) 89.2, Lymph % (Auto) 1.7, [place] % (Auto) 8.7, Eos % (Auto) 0.0, Baso % (Auto) 0.4, Nucleat RBC Rel Count 0.1, Neut # (Auto) 16.5 H, Lymph # (Auto) 0.3 L, [place] # (Auto) 1.6 H, Eos # (Auto) 0.0, Baso # (Auto) 0.1, Platelet Estimate Increased, Plt Morphology Comment Normal, RBC Morphology N/A, Poikilocytosis Slight, Anisocytosis Slight, Microcytosis Slight, Ovalocytes Slight, Acanthocytes (Spur) Slight, PHA Creatinine Clear 22.21, Sodium 133 L, Potassium 4.5, Chloride 102, Carbon Dioxide 22.9, Anion Gap 12.6, BUN 50 H, Creatinine 1.93 H, Est GFR (CKD-EPI) 24.770, Glucose 121 H, Calcium 8.8 04/28/24 14:13: Lactic Acid 1.2 04/28/24 14:05: Corrected WBC 15.8 H, Uncorrected WBC Count 15.8 H, RBC 3.90, Hgb 11.4 L, Hct 34.1, MCV 87.5, MCH 29.1, MCHC 33.3, RDW 15.2, Plt Count 486 H, MPV 7.0, Neut % (Auto) 93.7, Lymph % (Auto) 1.9, [place] % (Auto) 4.2, Eos % (Auto)0.0, Baso % (Auto) 0.2, Nucleat RBC Rel Count 0.1, Neut # (Auto) 14.9 H, Lymph #(Auto) 0.3 L, [place] # (Auto) 0.7, Eos # (Auto) 0.0, Baso # (Auto) 0.0, PHA Creatinine Clear N/A, Sodium 132 L, Potassium 4.9, Chloride 100, Carbon Dioxide 23.4, Anion Gap 13.5, BUN 46 H, Creatinine 2.05 H, Est GFR (CKD-EPI) 23.041, Glucose 134 H, Calcium 9.3, Magnesium 2.0, Total Bilirubin 0.5, AST 20, ALT 11, Alkaline Phosphatase 23 L, Total Protein 6.6, Albumin 3.6, Globulin 3.0, Albumin/Globulin Ratio 1.2 Microbiology Microbiology 04/29/24 11:17 Ascites Fluid Gram Stain - Final 04/28/24 14:05 Blood - Right Antecubital Blood Culture - Preliminary No Growth 1 Day 04/28/24 14:13 Blood - Right Antecubital Blood Culture - Preliminary No Growth 1 Day A&P - General Surgery Assessment/Plan (1) Status post small bowel resection: (2) Bowel obstruction: Qualifiers: Intestinal obstruction type: other intestinal obstruction Intestinal obstruction extent: unspecified extent Qualified Code(s): K56.699 - Other intestinal obstruction unspecified as to partial versus complete obstruction (3) Chronic colitis: Plan Patient has been hemodynamically stable. Pain much better than preoperatively. Continue nasogastric decompression. Continue Prevena VAC. Can transfer to surgical floor. Documented By: Tyrese Girard MD 04/30/24 0918 Signed By: <Electronically signed by MD Tyrese Girard> 04/30/24 [facility] Work Phone: [phone]) 283-691303-23-20[place] [address] General Surgery Progress Note Signed Patient: Sage Hsu MR#: [id number] : 1935 Acct:[id number] Age/Sex: 88 / F Adm Date: 5 Loc: Room: [address] [place] [address] Type: ADM IN Attending Dr: Hortensia Owen MD Copies to: ~ Date of Service: 04/30/2024 Subjective Subjective Patient reports: no new complaints, feels better, still having pain, no flatus, no bowel movement and afebrile HPI: Patient 88 year old female, is on post op day 1 for Exploratory laparotomy, Lysis of adhesions,Small bowel resection,Removal of mesh. Patient is awake and responsive. She denies fever, nausea, vomiting. NG tube in place which has drained 400 ml. Making adequate urine with beckman catheter in place. Patient has 10/10 pain at her incision site. Wound vac in place. Patient has not had any flatulence and has not had a bowel movement. WBC decreased to 13 Vital signs Stable Allergies & Medications Medications and Allergies Allergies Penicillins Allergy (Severe, Verified 04/13/24 14:59) Rash levofloxacin Allergy (Unknown, Verified 04/13/24 14:59) shaking promethazine (From Phenergan) Allergy (Unknown, Verified 04/13/24 14:59) Vomiting, anaphylaxis ezetimibe Allergy (Verified 04/13/24 14:59) Unknown Reaction gemfibrozil Allergy (Verified 04/13/24 14:59) Unknown Reaction Histamine H2 Inhibitors Allergy (Verified 04/13/24 14:59) Unknown Reaction propoxyphene Allergy (Verified 04/13/24 14:59) Unknown Reaction Antihistamine Allergy (Unknown, Uncoded 05/21/23 09:56) Unknown Reaction Home Medications cholecalciferol (vitamin D3) 50 mcg (2,000 unit) tablet (Vitamin D3) 2,000 unit PO DAILY 12/06/17 [History Confirmed 04/28/24] Lactobacillus acidophilus-Bifidobac.animalis 2.5 billion cell capsule (Daily Probiotic) 1 cap PO DAILY 04/15/23 [History Confirmed 04/28/24] clopidogrel 75 mg tablet 75 mg PO DAILY 04/15/23 [History Confirmed 04/28/24] estradiol 0.01% (0.1 mg/gram) vaginal cream See Rx Instructions .Route .COMPLEX #42.5 grams 04/26/23 [Rx Confirmed 04/29/24] bismuth subsalicylate 262 mg/15 mL oral suspension (Pepto-Bismol) 524 mg PO Q30- 60M PRN diarrhea 05/21/23 [History Confirmed 04/28/24] pantoprazole 20 mg tablet,delayed release 20 mg PO DAILY #90 tabs 08/09/23 [Rx Confirmed 04/28/24] simvastatin 40 mg tablet 40 mg PO DAILY 08/24/23 [History Confirmed 04/28/24] budesonide 3 mg capsule,delayed,extended release 3 mg PO DAILY #90 ea 09/22/23 [Rx Confirmed 04/28/24] spironolactone 50 mg tablet See Rx Instructions .Route .COMPLEX #90 tabs 10/13/23 [Rx Confirmed 04/28/24] ascorbic acid (vitamin C) 250 mg tablet 250 mg PO BID 02/21/24 [History Confirmed 04/29/24] melatonin 3 mg capsule 6 mg PO QHS PRN sleep 02/21/24 [History Confirmed 04/28/24] nebivolol 5 mg tablet 10 mg PO DAILY 02/21/24 [History Confirmed 04/28/24] prostat PO BID 02/21/24 [History Confirmed 04/13/24] gabapentin 100 mg capsule 100 mg PO BID #60 caps 03/23/24 [Rx Confirmed 04/28/24] multivitamin (Daily Multi-Vitamin tablet) 1 tab PO DAILY 03/23/24 [History Confirmed 04/28/24] zinc acetate 50 mg (zinc) capsule (Galzin) 50 mg PO DAILY 03/23/24 [History Confirmed 04/28/24] cephalexin 500 mg capsule 500 mg PO TID 04/13/24 [History Confirmed 04/28/24] aspirin 81 mg tablet,delayed release (Adult Aspirin Regimen) 81 mg PO DAILY 04/29/24 [History Confirmed 04/29/24] loperamide 2 mg capsule (Anti-Diarrheal (loperamide)) 2 mg PO .6hr PRN loose stool 04/29/24 [History Confirmed 04/29/24] rivaroxaban 2.5 mg tablet (Xarelto) 2.5 mg PO BID blood thinner 04/29/24 [History Confirmed 04/29/24] Active Medications Albuterol (Albuterol Neb 2.5 Mg/3 Ml Vial.Neb) 2.5 mg INHALATION Q2H PRN PRN Reason: Shortness Of Breath Stop: 04/28/25 14:20 Heparin Sodium (Porcine) (Heparin 5,000 Unit/Ml Vial) 5,000 unit SUBCUT Q12HR DAY Stop: 04/28/25 20:59 Last Admin: 04/30/24 08:03 Dose: 5,000 unit Hydralazine HCl (Hydralazine 20 Mg/Ml Vial) 10 mg IV-PUSH Q4H PRN PRN Reason: if SBP > 185 Stop: 04/28/25 14:20 Last Admin: 04/29/24 00:02 Dose: 10 mg Hydromorphone HCl (Hydromorphone 0.5 Mg/0.5 Ml Syringe) 0.25 mg IV-PUSH Q4H PRN PRN Reason: pain Ceftriaxone Sodium (Rocephin) 1 gm in 50 mls @ 100 mls/hr IV Q24H [facility] Last Infusion: 04/29/24 18:59 Dose: Infused Metronidazole (Flagyl) 500 mg in 100 mls @ 100 mls/hr IV Q8H [facility] Last Admin: 04/30/24 02:54 Dose: 100 mls/hr Sodium Chloride (0.9% Sodium Chloride 1,000 Ml) 1,000 mls @ 75 mls/hr IV .[id number] [facility] Stop: 04/29/25 16:16 Last Admin: 04/30/24 05:11 Dose: 75 mls/hr Ondansetron HCl (Ondansetron 4 Mg/2 Ml Vial) 4 mg IV-PUSH Q6H PRN PRN Reason: Nausea And Vomiting Stop: 04/29/25 02:25 Last Admin: 04/29/24 03:19 Dose: 4 mg Pantoprazole Sodium (Pantoprazole 40 Mg Vial) 40 mg IV-PUSH DAILY [facility] Stop: 04/29/25 08:59 Last Admin: 04/30/24 08:03 Dose: 40 mg Sodium Chloride (Sodium Chloride 0.9 % 10 Ml Vial.Pf) 10 ml INJECTION PRN PRN PRN Reason: Dilution Stop: 04/28/25 14:32 Last Admin: 04/30/24 08:04 Dose: 10 ml Exam Physical Exam Vital Signs: Temp Pulse Resp BP Pulse Ox O2 Del Method O2 Flow Rate 98.5 F 63 15 158/70 H 94 L Nasal Cannula 2 04/30/24 08:00 04/30/24 09:00 04/30/24 09:00 04/30/24 09:00 04/30/24 09:00 04/30/24 09:00 04/30/24 09:00 Const General: cooperative, healthy appearing, comfortable and no acute distress Nutritional Appearance: average body habitus Orientation: alert, awake and oriented x3 HEENT Nose: external nose normal (NG tube in place, Nasal Canula in place) Other: Patient keeps clearing throat as she is complaining of throat irration Eyes Conjunctivae: conjunctivae normal Sclera: sclerae normal (anicteric) Resp Effort & Inspection: normal respiratory effort, able to speak in complete sentences, symmetric chest movement, no audible wheezes and no cough Auscultation: clear to auscultation bilaterally, no rales, no rhonchi and no wheezes Cardio Rate: regular rate Rhythm: regular rhythm Pulses: radial pulses present GI Inspection: non-distended and incision (Prevena VAC in place) Palpation: soft, not firm, no guarding, not rigid and tender (at incision site, wound vac in place) Auscultation: normal bowel sounds Other: beckman catheter in place Neuro General: patient alert, patient awake and patient oriented x3 Psych Affect: normal affect Attitude: cooperative Thought Process: normal Objective Pain Assessment Abdomen: Pain Description: Constant and Sharp Pain Intensity: 10 Intake & Output 24 hour I&O: Intake & Output 04/29/24 04/30/24 04/30/24 23:59 07:59 15:59 Intake Total 250 / 1520 1000 / 1000 Output Total 650 / 1650 450 / 450 Balance -400 / -130 550 / 550 Weight 71.2 kg Labs 04/30/24 04:02 04/30/24 04:02 Laboratory Results - Last 48 hrs. 04/30/24 04:02: Corrected WBC 13.0 H, Uncorrected WBC Count 13.0 H, RBC 3.64, Hgb 10.6 L, Hct 31.9 L, MCV 87.7, MCH 29.2, MCHC 33.3, RDW 15.4 H, Plt Count 401, MPV 7.3, Neut % (Auto) 87.5, Lymph % (Auto) 2.4, [place] % (Auto) 10.1, Eos % (Auto) 0.0, Baso % (Auto) 0.0, Nucleat RBC Rel Count 0.0, Neut #(Auto) 11.3 H, Lymph # (Auto) 0.3 L, [place] # (Auto) 1.3 H, Eos # (Auto) 0.0, Baso # (Auto) 0.0, PHA Creatinine Clear 25.82, Sodium 137, Potassium 4.8, Chloride 108 H, Carbon Dioxide 22.5, Anion Gap 11.3, BUN 47 H, Creatinine 1.66 H, Est GFR (CKD-EPI) 29.680, Glucose 104 H, Calcium 8.2 L 04/29/24 23:28: POC Glucose 107 04/29/24 05:04: Corrected WBC 18.6 H, Uncorrected WBC Count 18.6 H, RBC 3.85, Hgb 11.4 L, Hct 33.3 L, MCV 86.5, MCH 29.5, MCHC 34.1, RDW 15.3, Plt Count 590 H, MPV 7.2, Neut % (Auto) 89.2, Lymph % (Auto) 1.7, [place] % (Auto) 8.7, Eos % (Auto) 0.0, Baso % (Auto) 0.4, Nucleat RBC Rel Count 0.1, Neut # (Auto) 16.5 H, Lymph # (Auto) 0.3 L, [place] # (Auto) 1.6 H, Eos # (Auto) 0.0, Baso # (Auto) 0.1, Platelet Estimate Increased, Plt Morphology Comment Normal, RBC Morphology N/A, Poikilocytosis Slight, Anisocytosis Slight, Microcytosis Slight, Ovalocytes Slight, Acanthocytes (Spur) Slight, PHA Creatinine Clear 22.21, Sodium 133 L, Potassium 4.5, Chloride 102, Carbon Dioxide 22.9, Anion Gap 12.6, BUN 50 H, Creatinine 1.93 H, Est GFR (CKD-EPI) 24.770, Glucose 121 H, Calcium 8.8 04/28/24 14:13: Lactic Acid 1.2 04/28/24 14:05: Corrected WBC 15.8 H, Uncorrected WBC Count 15.8 H, RBC 3.90, Hgb 11.4 L, Hct 34.1,MCV 87.5, MCH 29.1, MCHC 33.3, RDW 15.2, Plt Count 486 H, MPV 7.0, Neut % (Auto) 93.7, Lymph % (Auto) 1.9, [place] % (Auto) 4.2, Eos % (Auto)0.0, Baso % (Auto) 0.2, Nucleat RBC Rel Count 0.1, Neut # (Auto) 14.9 H, Lymph #(Auto) 0.3 L, [place] # (Auto) 0.7, Eos # (Auto) 0.0, Baso # (Auto) 0.0, PHA Creatinine Clear N/A, Sodium 132 L, Potassium 4.9, Chloride 100, Carbon Dioxide 23.4, Anion Gap 13.5, BUN 46 H, Creatinine 2.05 H, Est GFR (CKD-EPI) 23.041, Glucose 134 H, Calcium 9.3, Magnesium 2.0, Total Bilirubin 0.5, AST 20, ALT 11, Alkaline Phosphatase 23 L, Total Protein 6.6, Albumin 3.6, Globulin 3.0, Albumin/Globulin Ratio 1.2 Microbiology Microbiology 04/29/24 11:17 Ascites Fluid Gram Stain - Final 04/28/24 14:05 Blood - Right Antecubital Blood Culture - Preliminary No Growth 1 Day 04/28/24 14:13 Blood - Right Antecubital Blood Culture - Preliminary No Growth 1 Day A&P - General Surgery Assessment/Plan (1) Status post small bowel resection: (2) Bowel obstruction: Qualifiers: Intestinal obstruction type: other intestinal obstruction Intestinal obstruction extent: unspecified extent Qualified Code(s): K56.699 - Other intestinal obstruction unspecified as to partial versus complete obstruction (3) Chronic colitis: Plan Patient has been hemodynamically stable. Pain much better than preoperatively. Continue nasogastric decompression. Continue Prevena VAC. Can transfer to surgical floor. Documented By: Tyrese Girard MD 04/30/24 0918 Signed By: 04/30/24 1319 [facility]03-22-2025 Progress note Author Tyrese Girard [facility] Note Date/Time April 29, 2024 10: 18am [facility] [address] [place] [address] General Surgery Progress Note Signed Patient: Sage Hsu MR#: [id number] : 1935 Acct:[id number] Age/Sex: 88 / F Adm Date: 5 Loc: 4N Room: [address] [place] [address] Type: ADM IN Attending Dr: Hortensia Owen MD Copies to: ~ Date of Service: 04/29/2024 Subjective Subjective HPI: Patient, 88 year old female, is on day 2 of her hospitalization [facility], for a possible small bowel obstruction. I walked into the hospital witnessed thepatient crying and in intense pain. This is much different than yesterday. Pain medications were given and Xray was taken (awaiting results). The patient would not talk due to pain and is now asleep. Abdominal Xray results PROGRESSION OF THE DILATED BOWEL LOOPS WORRISOME FOR SBO Update 10 AM: Patient did develop worsening abdominal pain. Abdomen now much more distended and tender Allergies & Medications Medications and Allergies Allergies Penicillins Allergy (Severe, Verified 04/13/24 14:59) Rash levofloxacin Allergy (Unknown, Verified 04/13/24 14:59) shaking promethazine (From Phenergan) Allergy (Unknown, Verified 04/13/24 14:59) Vomiting, anaphylaxis ezetimibe Allergy (Verified 04/13/24 14:59) Unknown Reaction gemfibrozil Allergy (Verified 04/13/24 14:59) Unknown Reaction Histamine H2 Inhibitors Allergy (Verified 04/13/24 14:59) Unknown Reaction propoxyphene Allergy (Verified 04/13/24 14:59) Unknown Reaction Antihistamine Allergy (Unknown, Uncoded 05/21/23 09:56) Unknown Reaction Home Medications cholecalciferol (vitamin D3) 50 mcg (2,000 unit) tablet (Vitamin D3) 2,000 unit PO DAILY 12/06/17 [History Confirmed 04/28/24] Lactobacillus acidophilus-Bifidobac.animalis 2.5 billion cell capsule (Daily Probiotic) 1 cap PO DAILY 04/15/23 [History Confirmed 04/28/24] clopidogrel 75 mg tablet 75 mg PO DAILY 04/15/23 [History Confirmed 04/28/24] estradiol 0.01% (0.1 mg/gram) vaginal cream See Rx Instructions .Route .COMPLEX #42.5 grams 04/26/23 [Rx Confirmed 04/28/24] bismuth subsalicylate 262 mg/15 mL oral suspension (Pepto-Bismol) 524 mg PO Q30- 60M PRN diarrhea 05/21/23 [History Confirmed 04/28/24] pantoprazole 20 mg tablet,delayed release 20 mg PO DAILY #90 tabs 08/09/23 [Rx Confirmed 04/28/24] simvastatin 40 mg tablet 40 mg PO DAILY 08/24/23 [History Confirmed 04/28/24] budesonide 3 mg capsule,delayed,extended release 3 mg PO DAILY #90 ea 09/22/23 [Rx Confirmed 04/28/24] spironolactone 50 mg tablet See Rx Instructions .Route .COMPLEX #90 tabs 10/13/23 [Rx Confirmed 04/28/24] ascorbic acid (vitamin C) 250 mg tablet 250 mg PO BID 02/21/24 [History Confirmed 04/28/24] melatonin 3 mg capsule 6 mg PO QHS PRN sleep 02/21/24 [History Confirmed 04/28/24] nebivolol 5 mg tablet 10 mg PO DAILY 02/21/24 [History Confirmed 04/28/24] prostat PO BID 02/21/24 [History Confirmed 04/13/24] gabapentin 100 mg capsule 100 mg PO BID #60 caps 03/23/24 [Rx Confirmed 04/28/24] multivitamin (Daily Multi-Vitamin tablet) 1 tab PO DAILY 03/23/24 [History Confirmed 04/28/24] zinc acetate 50 mg (zinc) capsule (Galzin) 50 mg PO DAILY 03/23/24 [History Confirmed 04/28/24] cephalexin 500 mg capsule 500 mg PO TID 04/13/24 [History Confirmed 04/28/24] Active Medications Acetaminophen (Acetaminophen 325 Mg Tablet) 650 mg PO Q4H PRN PRN Reason: Pain Scale 1 - 5 Stop: 04/28/25 14:20 Albuterol (Albuterol Neb 2.5 Mg/3 Ml Vial.Neb) 2.5 mg INHALATION Q2H PRN PRN Reason: Shortness Of Breath Stop: 04/28/25 14:20 Atorvastatin Calcium (Atorvastatin 20 Mg Tablet) 20 mg PO DAILY [facility] Stop: 04/29/25 08:59 Budesonide (Budesonide 3 Mg Capdr...Er) 3 mg PO DAILY DAY Stop: 04/29/25 08:59 Last Admin: 04/29/24 08:16 Dose: 3 mg Docusate Sodium (Docusate 100 Mg Capsule) 200 mg PO BID PRN PRN Reason: Constipation Stop: 04/28/25 14:20 Gabapentin (Gabapentin 100 Mg Capsule) 100 mg PO BID DAY Stop: 04/28/25 20:59 Last Admin: 04/29/24 08:16 Dose: 100 mg Heparin Sodium (Porcine) (Heparin 5,000 Unit/Ml Vial) 5,000 unit SUBCUT Q12HR [facility] Stop: 04/28/25 20:59 Last Admin: 04/29/24 08:15 Dose: 5,000 unit Hydralazine HCl (Hydralazine 20 Mg/Ml Vial) 10 mg IV-PUSH Q4H PRN PRN Reason: if SBP > 185 Stop: 04/28/25 14:20 Last Admin: 04/29/24 00:02 Dose: 10 mg Hydromorphone HCl (Hydromorphone 0.5 Mg/0.5 Ml Syringe) 0.25 mg IV-PUSH Q4H PRN PRN Reason: pain Ceftriaxone Sodium (Rocephin) 1 gm in 50 mls @ 100 mls/hr IV Q24H [facility] Last Admin: 04/28/24 18:03 Dose: 100 mls/hr Sodium Chloride (0.9% Sodium Chloride 1,000 Ml) 1,000 mls @ 100 mls/hr IV .[id number] Stop: 04/28/25 14:29 Last Admin: 04/28/24 16:51 Dose: 100 mls/hr Metronidazole (Flagyl) 500 mg in 100 mls @ 100 mls/hr IV Q8H [facility] Last Admin: 04/29/24 05:33 Dose: 100 mls/hr Nebivolol (Nebivolol 5 Mg Tablet) 10 mg PO DAILY [facility] Stop: 04/29/25 08:59 Ondansetron HCl (Ondansetron 4 Mg/2 Ml Vial) 4 mg IV-PUSH Q6H PRN PRN Reason: Nausea And Vomiting Stop: 04/29/25 02:25 Last Admin: 04/29/24 03:19 Dose: 4 mg Oxycodone HCl (Oxycodone Ir 5 Mg Tablet) 5 mg PO Q4HR PRN PRN Reason: Pain Last Admin: 04/29/24 08:16 Dose: 5 mg Pantoprazole Sodium (Pantoprazole 40 Mg Vial) 40 mg IV-PUSH DAILY [facility] Stop: 04/29/25 08:59 Last Admin: 04/29/24 08:15 Dose: 40 mg Sodium Chloride (Sodium Chloride 0.9 % 10 Ml Vial.Pf) 10 ml INJECTION PRN PRN PRN Reason: Dilution Stop: 04/28/25 14:32 Last Admin: 04/29/24 08:15 Dose: 10 ml Sodium Chloride (Sodium Chloride 0.9 % 10 Ml Syringe) 10 ml IV-PUSH PRN PRN PRN Reason: Flush Stop: 04/28/25 14:32 Exam Physical Exam Vital Signs: Temp Pulse Resp BP Pulse Ox O2 Del Method O2 Flow Rate 97.4 F L 65 16 182/68 H 97 Nasal Cannula 2 04/29/24 08:00 04/29/24 08:00 04/29/24 08:00 04/29/24 08:00 04/29/24 08:00 04/29/24 08:00 04/29/24 08:00 Const General: ill appearing Resp Auscultation: clear to auscultation bilaterally Cardio Rate: regular rate Rhythm: regular rhythm GI Inspection: distended Palpation: firm and guarding Other: Abdomen much more tense and distended. Diffusely tender. Neuro Other: Arousable but less alert than yesterday. Objective Intake & Output 24 hour I&O: Intake & Output 04/28/24 04/29/24 04/29/24 23:59 07:59 15:59 Intake Total 100 / 100 50 / 50 Output Total 0 / 250 Balance 100 / -150 50 / 50 Weight 73 kg Labs 04/29/24 05:04 04/29/24 05:04 Laboratory Results - Last 48 hrs. 04/29/24 05:04: Corrected WBC 18.6 H, Uncorrected WBC Count 18.6 H, RBC 3.85, Hgb 11.4 L, Hct 33.3 L, MCV 86.5, MCH 29.5, MCHC 34.1, RDW 15.3, Plt Count 590 H, MPV 7.2, Neut % (Auto) 89.2, Lymph % (Auto) 1.7, [place] % (Auto) 8.7, Eos % (Auto) 0.0, Baso % (Auto) 0.4, Nucleat RBC Rel Count 0.1, Neut # (Auto) 16.5 H, Lymph # (Auto) 0.3 L, [place] # (Auto) 1.6 H, Eos # (Auto) 0.0, Baso # (Auto) 0.1, Platelet Estimate Increased, Plt Morphology Comment Normal, RBC Morphology N/A, Poikilocytosis Slight, Anisocytosis Slight, Microcytosis Slight, Ovalocytes Slight, Acanthocytes (Spur) Slight, PHA Creatinine Clear 22.21, Sodium 133 L, Potassium 4.5, Chloride 102, Carbon Dioxide 22.9, Anion Gap 12.6, BUN 50 H, Creatinine 1.93 H, Est GFR (CKD-EPI) 24.770, Glucose 121 H, Calcium 8.8 04/28/24 14:13: Lactic Acid 1.2 04/28/24 14:05: Corrected WBC 15.8 H, Uncorrected WBC Count 15.8 H, RBC 3.90, Hgb 11.4 L, Hct 34.1, MCV 87.5, MCH 29.1, MCHC 33.3, RDW 15.2, Plt Count 486 H, MPV 7.0, Neut % (Auto) 93.7, Lymph % (Auto) 1.9, [place] % (Auto) 4.2, Eos % (Auto)0.0, Baso % (Auto) 0.2, Nucleat RBC Rel Count 0.1, Neut # (Auto) 14.9 H, Lymph #(Auto) 0.3 L, [place] # (Auto) 0.7, Eos # (Auto) 0.0, Baso # (Auto) 0.0, PHA Creatinine Clear N/A, Sodium 132 L, Potassium 4.9, Chloride 100, Carbon Dioxide 23.4, Anion Gap 13.5, BUN 46 H, Creatinine 2.05 H, Est GFR (CKD-EPI) 23.041, Glucose 134 H, Calcium 9.3, Magnesium 2.0, Total Bilirubin 0.5, AST 20, ALT 11, Alkaline Phosphatase 23 L, Total Protein 6.6, Albumin 3.6, Globulin 3.0, Albumin/Globulin Ratio 1.2 A&P - General Surgery Assessment/Plan (1) Bowel obstruction: Qualifiers: Intestinal obstruction type: other intestinal obstruction Intestinal obstruction extent: unspecified extent Qualified Code(s): K56.699 - Other intestinal obstruction unspecified as to partial versus complete obstruction (2) Chronic colitis: Plan Patient's clinical situation worse. Abdomen distended, tender with increased pain. Plan will be to take the patient to surgery today. Plan is for exploratory laparotomy. Patient may require bowel resection and/or ostomy. The procedure, benefits, risks including bleeding, infection, anastomotic leak, need for bowel resection, need for ostomy, injury to abdominal structures such as bowel, perioperative cardiac, pulmonary, renal problems, , were discussed with patient and family who was in the room. Risk of not doing surgery including worsening obstruction, ischemia, bowel perforation, peritonitis, were also discussed. Documented By: Tyrese Girard MD 04/29/24924 Signed By: <Electronically signed by MD Tyrese Girard> 04/29/24 1011 [facility] Work Phone: 1(691) 592-601303-22-2025 Progress note Author Hortensia Owen [facility] Note Date/Time April 29, 2024 10: 06am [facility] [address] [place] [address] Hospitalist Progress Note Signed Patient: Sage Hsu MR#: [id number] : 1935 Acct:[id number] Age/Sex: 88 / F Adm Date: 5 Loc: 4 Room: [address] [place] [address] Type: ADM IN Attending Dr: Hortensia Owen MD Copies to: ~ Date of Service: 04/29/2024 Subjective Subjective Narrative: Has been seen and examined today. Patient developed more distention of the abdomen associated with nausea but no vomiting, also she complains of pain mainly in the upper abdomen, which is worse since yesterday, no bowel movement, no flatus Denies any shortness of breath any chest pain Physical exam: General -patient is sleepy, but arousable to voice stimuli, able to follow commands and answer the questions Appeared to be confused overnight Cardiovascular -S1 with S2 Pulmonary - clear to auscultation bilaterally Gastrointestinal - abdomen is firm and distended mainly in the upper abdomen, with hypoactive bowel sounds Extremities -1+ edema of the right lower extremity which is chronic Neurological -no focal neurological dysfunction noted Exam Physical Exam Vital Signs: Temp Pulse Resp BP Pulse Ox O2 Del Method O2 Flow Rate 36.3 C L 65 16 182/68 H 97 Nasal Cannula 2 04/29/24 08:00 04/29/24 08:00 04/29/24 08:00 04/29/24 08:00 04/29/24 08:00 04/29/24 08:00 04/29/24 08:00 Objective Lab Results 04/29/24 05:04 04/29/24 05:04 Meds Allergies and Active Meds Allergies Penicillins Allergy (Severe, Verified 04/13/24 14:59) Rash levofloxacin Allergy (Unknown, Verified 04/13/24 14:59) shaking promethazine (From Phenergan) Allergy (Unknown, Verified 04/13/24 14:59) Vomiting, anaphylaxis ezetimibe Allergy (Verified 04/13/24 14:59) Unknown Reaction gemfibrozil Allergy (Verified 04/13/24 14:59) Unknown Reaction Histamine H2 Inhibitors Allergy (Verified 04/13/24 14:59) Unknown Reaction propoxyphene Allergy (Verified 04/13/24 14:59) Unknown Reaction Antihistamine Allergy (Unknown, Uncoded 05/21/23 09:56) Unknown Reaction Active Meds: Active Medications Generic Name Dose Route Start Last Admin Trade Name Freq PRN Reason Stop Dose Admin Acetaminophen 650 mg 04/28/24 14:21 Acetaminophen 325 Mg Tablet PO 04/28/25 14:20 Q4H PRN Pain Scale 1 - 5 Albuterol 2.5 mg 04/28/24 14:21 Albuterol Neb 2.5 Mg/3 Ml Vial.Neb INHALATION 04/28/25 14:20 Q2H PRN Shortness Of Breath Atorvastatin Calcium 20 mg 04/29/24 09:00 Atorvastatin 20 Mg Tablet PO 04/29/25 08:59 DAILY DAY Budesonide 3 mg 04/29/24 09:00 04/29/24 08:16 Budesonide 3 Mg Capdr...Er PO 04/29/25 08:59 3 mg DAILY DAY Administration Docusate Sodium 200 mg 04/28/24 14:21 Docusate 100 Mg Capsule PO 04/28/25 14:20 BID PRN Constipation Gabapentin 100 mg 04/28/24 21:00 04/29/24 08:16 Gabapentin 100 Mg Capsule PO 04/28/25 20:59 100 mg BID DAY Administration Heparin Sodium (Porcine) 5,000 unit 04/28/24 21:00 04/29/24 08:15 Heparin 5,000 Unit/Ml Vial SUBCUT 04/28/25 20:59 5,000 unit Q12HR DAY Administration Hydralazine HCl 10 mg 04/28/24 14:21 04/29/24 00:02 Hydralazine 20 Mg/Ml Vial IV-PUSH 04/28/25 14:20 10 mg Q4H PRN Administration if SBP > 185 Hydromorphone HCl 0.25 mg 04/29/24 03:25 Hydromorphone 0.5 Mg/0.5 Ml Syringe IV-PUSH Q4H PRN pain Ceftriaxone Sodium 1 gm in 50 mls @ 100 mls/hr 04/28/24 14:30 04/28/24 18:03 Rocephin IV 100 mls/hr Q24H DAY Administration Sodium Chloride 1,000 mls @ 100 mls/hr 04/28/24 14:30 04/28/24 16:51 0.9% Sodium Chloride 1,000 Ml IV 04/28/25 14:29 100 mls/hr .Q10H DAY Administration Metronidazole 500 mg in 100 mls @ 100 mls/hr 04/28/24 14:45 04/29/24 05:33 Flagyl IV 100 mls/hr Q8H DAY Administration Nebivolol 10 mg 04/29/24 09:00 Nebivolol 5 Mg Tablet PO 04/29/25 08:59 DAILY DAY Ondansetron HCl 4 mg 04/29/24 02:26 04/29/24 03:19 Ondansetron 4 Mg/2 Ml Vial IV-PUSH 04/29/25 02:25 4 mg Q6H PRN Administration Nausea And Vomiting Oxycodone HCl 5 mg 04/28/24 14:21 04/29/24 08:16 Oxycodone Ir 5 Mg Tablet PO 5 mg Q4HR PRN Administration Pain Pantoprazole Sodium 40 mg 04/29/24 09:00 04/29/24 08:15 Pantoprazole 40 Mg Vial IV-PUSH 04/29/25 08:59 40 mg DAILY DAY Administration Sodium Chloride 10 ml 04/28/24 14:33 04/29/24 08:15 Sodium Chloride 0.9 % 10 Ml Vial.Pf INJECTION 04/28/25 14:32 10 ml PRN PRN Administration Dilution Sodium Chloride 10 ml 04/28/24 14:33 Sodium Chloride 0.9 % 10 Ml Syringe IV-PUSH 04/28/25 14:32 PRN PRN Flush A&P - Hospitalist Assessment/Plan (1) Hypertension: Plan 1. Suspected small bowel obstruction with previous history of complicated cholecystectomy, history of hysterectomy Clinically worse, x-ray shows progression of dilatation Continue n.p.o., continue pain management, hydration, PPIs Will insert NG tube due to significant distention of the abdomen as well as intra actable nausea 2. Acute kidney injury on chronic kidney disease stage III, with baseline creatinine 1.5 Acute function slightly better, she did get contrast on April 25 For now gentle hydration, strict input output, avoid any nephrotoxic medications Bladder scan, no signs of obstruction Repeat kidney function in a.m. 3. Coronary artery disease that is post CABG in 1998, status post stress test in 2023 before right lower extremity femoral-popliteal bypass, per family stresstest was unremarkable Denies any symptoms such as chest pain shortness of breath EKG normal sinus with right bundle branch block no ischemic findings 4. Hypertension, blood pressure the higher range, continue with hydralazine 5. Microscopic colitis, does not need IV steroids, continue with beclomethasone 6. Previous history of C. difficile colitis If diarrhea will check for C. difficile as she does have significant worsening of leukocytosis, however she got IV steroids in outside hospital 7. DVT prophylaxis heparin The patient care was discussed with the patient's daughter at the bedside Documented By: Hortensia Owen MD 04/29/24 1003 Signed By: <Electronically signed by Hortensia Owen MD> 04/29/24 1006 [facility] Work Phone: [phone]) 167-343403-22-20[place] [address] General Surgery Progress Note Signed Patient: Sage Hsu MR#: [id number] : 1935 Acct:[id number] Age/Sex: 88 / F Adm Date: 5 Loc: Room: [address] [place] [address] Type: ADM IN Attending Dr: Hortensia Owen MD Copies to: ~ Date of Service: 04/29/2024 Subjective Subjective HPI: Patient, 88 year old female, is on day 2 of her hospitalization at [facility], for a possible small bowel obstruction. I walked into the hospital witnessed thepatient crying and in intense pain. This is much different than yesterday. Pain medications were given and Xray was taken (awaiting results).The patient would not talk due to pain and is now asleep. Abdominal Xray results PROGRESSION OF THE DILATED BOWEL LOOPS WORRISOME FOR SBO Update 10 AM: Patient did develop worsening abdominal pain. Abdomen now much more distended and tender Allergies & Medications Medications and Allergies Allergies Penicillins Allergy (Severe, Verified 04/13/24 14:59) Rash levofloxacin Allergy (Unknown, Verified 04/13/24 14:59) shaking promethazine (From Phenergan) Allergy (Unknown, Verified 04/13/24 14:59) Vomiting, anaphylaxis ezetimibe Allergy (Verified 04/13/24 14:59) Unknown Reaction gemfibrozil Allergy (Verified 04/13/24 14:59) Unknown Reaction Histamine H2 Inhibitors Allergy (Verified 04/13/24 14:59) Unknown Reaction propoxyphene Allergy (Verified 04/13/24 14:59) Unknown Reaction Antihistamine Allergy (Unknown, Uncoded 05/21/23 09:56) Unknown Reaction Home Medications cholecalciferol (vitamin D3) 50 mcg (2,000 unit) tablet (Vitamin D3) 2,000 unit PO DAILY 12/06/17 [History Confirmed 04/28/24] Lactobacillus acidophilus-Bifidobac.animalis 2.5 billion cell capsule (Daily Probiotic) 1 cap PO DAILY 04/15/23 [History Confirmed 04/28/24] clopidogrel 75 mg tablet 75 mg PO DAILY 04/15/23 [History Confirmed 04/28/24] estradiol 0.01% (0.1 mg/gram) vaginal cream See Rx Instructions .Route .COMPLEX #42.5 grams 04/26/23 [Rx Confirmed 04/28/24] bismuth subsalicylate 262 mg/15 mL oral suspension (Pepto-Bismol) 524 mg PO Q30- 60M PRN diarrhea 05/21/23 [History Confirmed 04/28/24] pantoprazole 20 mg tablet,delayed release 20 mg PO DAILY #90 tabs 08/09/23 [Rx Confirmed 04/28/24] simvastatin 40 mg tablet 40 mg PO DAILY 08/24/23 [History Confirmed 04/28/24] budesonide 3 mg capsule,delayed,extended release 3 mg PO DAILY #90 ea 09/22/23 [Rx Confirmed 04/28/24] spironolactone 50 mg tablet See Rx Instructions .Route .COMPLEX #90 tabs 10/13/23 [Rx Confirmed 04/28/24] ascorbic acid (vitamin C) 250 mg tablet 250 mg PO BID 02/21/24 [History Confirmed 04/28/24] melatonin 3 mg capsule 6 mg PO QHS PRN sleep 02/21/24 [History Confirmed 04/28/24] nebivolol 5 mg tablet 10 mg PO DAILY 02/21/24 [History Confirmed 04/28/24] prostat PO BID 02/21/24 [History Confirmed 04/13/24] gabapentin 100 mg capsule 100 mg PO BID #60 caps 03/23/24 [Rx Confirmed 04/28/24] multivitamin (Daily Multi-Vitamin tablet) 1 tab PO DAILY 03/23/24 [History Confirmed 04/28/24] zinc acetate 50 mg (zinc) capsule (Galzin) 50 mg PO DAILY 03/23/24 [History Confirmed 04/28/24] cephalexin 500 mg capsule 500 mg PO TID 04/13/24 [History Confirmed 04/28/24] Active Medications Acetaminophen (Acetaminophen 325 Mg Tablet) 650 mg PO Q4H PRN PRN Reason: Pain Scale 1 - 5 Stop: 04/28/25 14:20 Albuterol (Albuterol Neb 2.5 Mg/3 Ml Vial.Neb) 2.5 mg INHALATION Q2H PRN PRN Reason: Shortness Of Breath Stop: 04/28/25 14:20 Atorvastatin Calcium (Atorvastatin 20 Mg Tablet) 20 mg PO DAILY [facility] Stop: 04/29/25 08:59 Budesonide (Budesonide 3 Mg Capdr...Er) 3 mg PO DAILY DAY Stop: 04/29/25 08:59 Last Admin: 04/29/24 08:16 Dose: 3 mg Docusate Sodium (Docusate 100 Mg Capsule) 200 mg PO BID PRN PRN Reason: Constipation Stop: 04/28/25 14:20 Gabapentin (Gabapentin 100 Mg Capsule) 100 mg PO BID DAY Stop: 04/28/25 20:59 Last Admin: 04/29/24 08:16 Dose: 100 mg Heparin Sodium (Porcine) (Heparin 5,000 Unit/Ml Vial) 5,000 unit SUBCUT Q12HR DAY Stop: 04/28/25 20:59 Last Admin: 04/29/24 08:15 Dose: 5,000 unit Hydralazine HCl (Hydralazine 20 Mg/Ml Vial) 10 mg IV-PUSH Q4H PRN PRN Reason: if SBP > 185 Stop: 04/28/25 14:20 Last Admin: 04/29/24 00:02 Dose: 10 mg Hydromorphone HCl (Hydromorphone 0.5 Mg/0.5 Ml Syringe) 0.25 mg IV-PUSH Q4H PRN PRN Reason: pain Ceftriaxone Sodium (Rocephin) 1 gm in 50 mls @ 100 mls/hr IV Q24H [facility] Last Admin: 04/28/24 18:03 Dose: 100 mls/hr Sodium Chloride (0.9% Sodium Chloride 1,000 Ml) 1,000 mls @ 100 mls/hr IV .[id number] Stop: 04/28/25 14:29 Last Admin: 04/28/24 16:51 Dose: 100 mls/hr Metronidazole (Flagyl) 500 mg in 100 mls @ 100 mls/hr IV Q8H [facility] Last Admin: 04/29/24 05:33 Dose: 100 mls/hr Nebivolol (Nebivolol 5 Mg Tablet) 10 mg PO DAILY [facility] Stop: 04/29/25 08:59 Ondansetron HCl (Ondansetron 4 Mg/2 Ml Vial) 4 mg IV-PUSH Q6H PRN PRN Reason: Nausea And Vomiting Stop: 04/29/25 02:25 Last Admin: 04/29/24 03:19 Dose: 4 mg Oxycodone HCl (Oxycodone Ir 5 Mg Tablet) 5 mg PO Q4HR PRN PRN Reason: Pain Last Admin: 04/29/24 08:16 Dose: 5 mg Pantoprazole Sodium (Pantoprazole 40 Mg Vial) 40 mg IV-PUSH DAILY [facility] Stop: 04/29/25 08:59 Last Admin: 04/29/24 08:15 Dose: 40 mg Sodium Chloride (Sodium Chloride 0.9 % 10 Ml Vial.Pf) 10 ml INJECTION PRN PRN PRN Reason: Dilution Stop: 04/28/25 14:32 Last Admin: 04/29/24 08:15 Dose: 10 ml Sodium Chloride (Sodium Chloride 0.9 % 10 Ml Syringe) 10 ml IV-PUSH PRN PRN PRN Reason: Flush Stop: 04/28/25 14:32 Exam Physical Exam Vital Signs: Temp Pulse Resp BP Pulse Ox O2 Del Method O2 Flow Rate 97.4 F L 65 16 182/68 H 97 Nasal Cannula 2 04/29/24 08:00 04/29/24 08:00 04/29/24 08:00 04/29/24 08:00 04/29/24 08:00 04/29/24 08:00 04/29/24 08:00 Const General: ill appearing Resp Auscultation: clear to auscultation bilaterally Cardio Rate: regular rate Rhythm: regular rhythm GI Inspection: distended Palpation: firm and guarding Other: Abdomen much more tense and distended. Diffusely tender. Neuro Other: Arousable but less alert than yesterday. Objective Intake & Output 24 hour I&O: Intake & Output 04/28/24 04/29/24 04/29/24 23:59 07:59 15:59 Intake Total 100 / 100 50 / 50 Output Total 0 / 250 Balance 100 / -150 50 / 50 Weight 73 kg Labs 04/29/24 05:04 04/29/24 05:04 Laboratory Results - Last 48 hrs. 04/29/24 05:04: Corrected WBC 18.6 H, Uncorrected WBC Count 18.6 H, RBC 3.85, Hgb 11.4 L, Hct 33.3 L, MCV 86.5, MCH 29.5, MCHC 34.1, RDW 15.3, Plt Count 590 H, MPV 7.2, Neut % (Auto) 89.2, Lymph % (Auto) 1.7, [place] % (Auto) 8.7, Eos % (Auto) 0.0, Baso % (Auto) 0.4, Nucleat RBC Rel Count 0.1, Neut # (Auto) 16.5 H, Lymph # (Auto) 0.3 L, [place] # (Auto) 1.6 H, Eos # (Auto) 0.0, Baso # (Auto) 0.1, Platelet Estimate Increased, Plt Morphology Comment Normal, RBC Morphology N/A, Poikilocytosis Slight, Anisocytosis Slight, Microcytosis Slight, Ovalocytes Slight, Acanthocytes (Spur) Slight, PHA Creatinine Clear 22.21, Sodium 133 L, Potassium 4.5, Chloride 102, Carbon Dioxide 22.9, Anion Gap 12.6, BUN 50 H, Creatinine 1.93 H, Est GFR (CKD-EPI) 24.770, Glucose 121 H, Calcium 8.8 04/28/24 14:13: Lactic Acid 1.2 04/28/24 14:05: Corrected WBC 15.8 H, Uncorrected WBC Count 15.8 H, RBC 3.90, Hgb 11.4 L, Hct 34.1,MCV 87.5, MCH 29.1, MCHC 33.3, RDW 15.2, Plt Count 486 H, MPV 7.0, Neut % (Auto) 93.7, Lymph % (Auto) 1.9, [place] % (Auto) 4.2, Eos % (Auto)0.0, Baso % (Auto) 0.2, Nucleat RBC Rel Count 0.1, Neut # (Auto) 14.9 H, Lymph #(Auto) 0.3 L, [place] # (Auto) 0.7, Eos # (Auto) 0.0, Baso # (Auto) 0.0, PHA Creatinine Clear N/A, Sodium 132 L, Potassium 4.9, Chloride 100, Carbon Dioxide 23.4, Anion Gap 13.5, BUN 46 H, Creatinine 2.05 H, Est GFR (CKD-EPI) 23.041, Glucose 134 H, Calcium 9.3, Magnesium 2.0, Total Bilirubin 0.5, AST 20, ALT 11, Alkaline Phosphatase 23 L, Total Protein 6.6, Albumin 3.6, Globulin 3.0, Albumin/Globulin Ratio 1.2 A&P - General Surgery Assessment/Plan (1) Bowel obstruction: Qualifiers: Intestinal obstruction type: other intestinal obstruction Intestinal obstruction extent: unspecified extent Qualified Code(s): K56.699 - Other intestinal obstruction unspecified as to partial versus complete obstruction (2) Chronic colitis: Plan Patient's clinical situation worse. Abdomen distended, tender with increased pain. Plan will be to take the patient to surgery today. Plan is for exploratory laparotomy. Patient may require bowel resection and/or ostomy. The procedure, benefits, risks including bleeding, infection, anastomotic leak, need for bowel resection, need for ostomy, injury to abdominal structures such as bowel, perioperative cardiac, pulmonary, renal problems, , were discussed with patient and family who was in the room. Risk of not doing surgery including worsening obstruction, ischemia, bowel perforation, peritonitis, were also discussed. Documented By: Tyrese Girard MD 04/29/24924 Signed By: 04/29/24 [facility]8 [facility]03-22-2025 [place] [id number] Hospital[place] Progress Note Signed Patient: Sage Hsu MR#: [id number] : 1935 Acct:[id number] Age/Sex: 88 / F Adm Date: 5 Loc: 4N Room: [address] [place] [address] Type: ADM IN Attending Dr: Hortensia Owen MD Copies to: ~ Date of Service: 04/29/2024 Subjective Subjective Narrative: Has been seen and examined today. Patient developed more distention of the abdomen associated with nausea but no vomiting, also she complains of pain mainly in the upper abdomen, which is worse sinceyesterday, no bowel movement, no flatus Denies any shortness of breath any chest pain Physical exam: General -patient is sleepy, but arousable to voice stimuli, able to follow commands and answer the questions Appeared to be confused overnight Cardiovascular -S1 with S2 Pulmonary - clear to auscultation bilaterally Gastrointestinal - abdomen is firm and distended mainly in the upper abdomen, with hypoactive bowelsounds Extremities -1+ edema of the right lower extremity which is chronic Neurological -no focal neurological dysfunction noted Exam Physical Exam Vital Signs: Temp Pulse Resp BP Pulse Ox O2 Del Method O2 Flow Rate 36.3 C L 65 16 182/68 H 97 Nasal Cannula 2 04/29/24 08:00 04/29/24 08:00 04/29/24 08:00 04/29/24 08:00 04/29/24 08:00 04/29/24 08:00 04/29/24 08:00 Objective Lab Results 04/29/24 05:04 04/29/24 05:04 Meds Allergies and Active Meds Allergies Penicillins Allergy (Severe, Verified 04/13/24 14:59) Rash levofloxacin Allergy (Unknown, Verified 04/13/24 14:59) shaking promethazine (From Phenergan) Allergy (Unknown, Verified 04/13/24 14:59) Vomiting, anaphylaxis ezetimibe Allergy (Verified 04/13/24 14:59) Unknown Reaction gemfibrozil Allergy (Verified 04/13/24 14:59) Unknown Reaction Histamine H2 Inhibitors Allergy (Verified 04/13/24 14:59) Unknown Reaction propoxyphene Allergy (Verified 04/13/24 14:59) Unknown Reaction Antihistamine Allergy (Unknown, Uncoded 05/21/23 09:56) Unknown Reaction Active Meds: Active Medications Generic Name Dose Route Start Last Admin Trade Name Freq PRN Reason Stop Dose Admin Acetaminophen 650 mg 04/28/24 14:21 Acetaminophen 325 Mg Tablet PO 04/28/25 14:20 Q4H PRN Pain Scale 1 - 5 Albuterol 2.5 mg 04/28/24 14:21 Albuterol Neb 2.5 Mg/3 Ml Vial.Neb INHALATION 04/28/25 14:20 Q2H PRN Shortness Of Breath Atorvastatin Calcium 20 mg 04/29/24 09:00 Atorvastatin 20 Mg Tablet PO 04/29/25 08:59 DAILY DAY Budesonide 3 mg 04/29/24 09:00 04/29/24 08:16 Budesonide 3 Mg Capdr...Er PO 04/29/25 08:59 3 mg DAILY DAY Administration Docusate Sodium 200 mg 04/28/24 14:21 Docusate 100 Mg Capsule PO 04/28/25 14:20 BID PRN Constipation Gabapentin 100 mg 04/28/24 21:00 04/29/24 08:16 Gabapentin 100 Mg Capsule PO 04/28/25 20:59 100 mg BID DAY Administration Heparin Sodium (Porcine) 5,000 unit 04/28/24 21:00 04/29/24 08:15 Heparin 5,000 Unit/Ml Vial SUBCUT 04/28/25 20:59 5,000 unit Q12HR DAY Administration Hydralazine HCl 10 mg 04/28/24 14:21 04/29/24 00:02 Hydralazine 20 Mg/Ml Vial IV-PUSH 04/28/25 14:20 10 mg Q4H PRN Administration if SBP > 185 Hydromorphone HCl 0.25 mg 04/29/24 03:25 Hydromorphone 0.5 Mg/0.5 Ml Syringe IV-PUSH Q4H PRN pain Ceftriaxone Sodium 1 gm in 50 mls @ 100 mls/hr 04/28/24 14:30 04/28/24 18:03 Rocephin IV 100 mls/hr Q24H DAY Administration Sodium Chloride 1,000 mls @ 100 mls/hr 04/28/24 14:30 04/28/24 16:51 0.9% Sodium Chloride 1,000 Ml IV 04/28/25 14:29 100 mls/hr .Q10H DAY Administration Metronidazole 500 mg in 100 mls @ 100 mls/hr 04/28/24 14:45 04/29/24 05:33 Flagyl IV 100 mls/hr Q8H DAY Administration Nebivolol 10 mg 04/29/24 09:00 Nebivolol 5 Mg Tablet PO 04/29/25 08:59 DAILY DAY Ondansetron HCl 4 mg 04/29/24 02:26 04/29/24 03:19 Ondansetron 4 Mg/2 Ml Vial IV-PUSH 04/29/25 02:25 4 mg Q6H PRN Administration Nausea And Vomiting Oxycodone HCl 5 mg 04/28/24 14:21 04/29/24 08:16 Oxycodone Ir 5 Mg Tablet PO 5 mg Q4HR PRN Administration Pain Pantoprazole Sodium 40 mg 04/29/24 09:00 04/29/24 08:15 Pantoprazole 40 Mg Vial IV-PUSH 04/29/25 08:59 40 mg DAILY DAY Administration Sodium Chloride 10 ml 04/28/24 14:33 04/29/24 08:15 Sodium Chloride 0.9 % 10 Ml Vial.Pf INJECTION 04/28/25 14:32 10 ml PRN PRN Administration Dilution Sodium Chloride 10 ml 04/28/24 14:33 Sodium Chloride 0.9 % 10 Ml Syringe IV-PUSH 04/28/25 14:32 PRN PRN Flush A&P - Hospitalist Assessment/Plan (1) Hypertension: Plan 1. Suspected small bowel obstruction with previous history of complicated cholecystectomy, history of hysterectomy Clinically worse, x-ray shows progression of dilatation Continue n.p.o., continue pain management, hydration, PPIs Will insert NG tube due to significant distention of the abdomen as well as intra actable nausea 2. Acute kidney injury on chronic kidney disease stage III, with baseline creatinine 1.5 Acute function slightly better, she did get contrast on April 25 For now gentle hydration, strict input output, avoid any nephrotoxic medications Bladder scan, no signs of obstruction Repeat kidney function in a.m. 3. Coronary artery disease that is post CABG in 1998, status post stress test in 2023 before right lower extremity femoral-popliteal bypass, per family stresstest was unremarkable Denies any symptoms such as chest pain shortness of breath EKG normal sinus with right bundle branch block no ischemic findings 4. Hypertension, blood pressure the higher range, continue with hydralazine 5. Microscopic colitis, does not need IV steroids, continue with beclomethasone 6. Previous history of C. difficile colitis If diarrhea will check for C. difficile as she does have significant worsening of leukocytosis, however she got IV steroids in outside hospital 7. DVT prophylaxis heparin The patient care was discussed with the patient's daughter at the bedside Documented By: Hortensia Owen MD 04/29/24 1003 Signed By: 04/29/24 1006 [facility]03-21-2025 Consult note Author Tyrese Girard [facility] Note Date/Time April 28, 2024 6:3 4pm [facility] [address] [place] [address] General Surgery Consult Note Signed Patient: Sage Hsu MR#: [id number] : 1935 Acct:[id number] Age/Sex: 88 / F Adm Date: 5 Loc: Room: [address] [place] [address] Type: ADM IN Attending Dr: Hortensia Owen MD Copies to: MD Gypsy Ha MD Ruta Semaskiene, MD~ History of Present Illness Date of consult: 04/28/2024 Reason for consult: abdominal pain Requesting/Attending Provider: Hortensia Owen MD History of present illness: Patient, 88 year old female with past medical history of Coronary artery, Disease, IBS with Diarrhea, Hypertension, Diverticulosis, and surgical history of cholecystectomy and hysterectomy, presented to the Emergency Department todayfor epigastric abdominal pain. This pain started 5 days ago which lead to her being hospitalized at [place] where she was diagnosed with microscopic colitis. Patient has a history of chronic colitis and has been on budesonide. 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 Patient was an inpatient at [facility] for a few days. However, she developed worsening abdominal pain and CT scan there showed evidence of an early bowel obstruction which was new compared to her admission CT scan. [facility] was [facility]. She states most of the pain is in the epigastric region. Her last bowel movement was this morning which did not cause her pain and she did not notice blood. She states she has been having chronic diarrhea. She is nauseous but has not vomited. Patient had her last colonoscopy 10 years ago which showed diverticulosis. Patient is currently on plavix. Patient also has a history of some type of hernia repair although the patient and family could not recall if it was an abdominal wall hernia or a hiatal hernia repair. Abdominal X ray results DILATED BOWEL LOOPS ARE PRESENT. DEVELOPING SBO CANNOT BE EXCLUDED. Review of Systems Constitutional Constitutional: Denies body ache(s), Denies fever(s) and Reports weakness Cardiovascular Cardiovascular: Denies chest pain, Denies dyspnea, Denies leg edema and Denies lightheadedness Respiratory Respiratory: Denies cough, Denies dyspnea and Denies hemoptysis Gastrointestinal Gastrointestinal: Reports abdominal pain (Right upper quadrent), Reports bloating, Reports constipation, Denies hematochezia, Reports loose stools, Reports nausea and Denies vomiting Genitourinary Genitourinary: Denies difficulty voiding and Denies dysuria Hematologic/Lymphatic Hematologic/Lymphatic: Reports easy bruising [facility] Medical History CAD (coronary artery disease) Cataracts, bilateral Irritable bowel syndrome with diarrhea Microscopic colitis Hyperlipidemia Hypertension Essential (primary) hypertension Dysuria Diverticulosis of large intestine without hemorrhage Clostridioides difficile infection Surgical History History of tonsillectomy and adenoidectomy History of quadruple bypass H/O rectal sphincterotomy S/P hernia repair Hx of hernia repair H/O rectal sphincterotomy Hx of bilateral cataract extraction History of quadruple bypass Hx of cholecystectomy History of left hip replacement Hx of hysterectomy Family History Father Mother Brother Cancer bladder cancer Diabetes Social History Smoking Status: Former smoker Substance Use Type: None Allergies & Medications Medications and Allergies Allergies Penicillins Allergy (Severe, Verified 04/13/24 14:59) Rash levofloxacin Allergy (Unknown, Verified 04/13/24 14:59) shaking promethazine (From Phenergan) Allergy (Unknown, Verified 04/13/24 14:59) Vomiting, anaphylaxis ezetimibe Allergy (Verified 04/13/24 14:59) Unknown Reaction gemfibrozil Allergy (Verified 04/13/24 14:59) Unknown Reaction Histamine H2 Inhibitors Allergy (Verified 04/13/24 14:59) Unknown Reaction propoxyphene Allergy (Verified 04/13/24 14:59) Unknown Reaction Antihistamine Allergy (Unknown, Uncoded 05/21/23 09:56) Unknown Reaction Home Medications cholecalciferol (vitamin D3) 50 mcg (2,000 unit) tablet (Vitamin D3) 2,000 unit PO DAILY 12/06/17 [History Confirmed 04/13/24] Lactobacillus acidophilus-Bifidobac.animalis 2.5 billion cell capsule (Daily Probiotic) cap PO 04/15/23 [History Confirmed 04/13/24] clopidogrel 75 mg tablet 75 mg PO DAILY 04/15/23 [History Confirmed 04/13/24] estradiol 0.01% (0.1 mg/gram) vaginal cream See Rx Instructions .Route .COMPLEX #42.5 grams 04/26/23 [Rx Confirmed 04/13/24] bismuth subsalicylate 262 mg/15 mL oral suspension (Pepto-Bismol) 524 mg PO Q30- 60M PRN 05/21/23 [History Confirmed 04/13/24] pantoprazole 20 mg tablet,delayed release 20 mg PO DAILY #90 tabs 08/09/23 [Rx Confirmed 04/13/24] simvastatin 40 mg tablet 40 mg PO DAILY 08/24/23 [History Confirmed 04/13/24] budesonide 3 mg capsule,delayed,extended release 3 mg PO DAILY #90 ea 09/22/23 [Rx Confirmed 04/13/24] spironolactone 50 mg tablet See Rx Instructions .Route .COMPLEX #90 tabs 10/13/23 [Rx Confirmed 04/13/24] ascorbic acid (vitamin C) 250 mg tablet 250 mg PO BID 02/21/24 [History Confirmed 04/13/24] melatonin 3 mg capsule 6 mg PO QHS 02/21/24 [History Confirmed 04/13/24] nebivolol 5 mg tablet 10 mg PO DAILY 02/21/24 [History Confirmed 04/13/24] prostat PO BID 02/21/24 [History Confirmed 04/13/24] gabapentin 100 mg capsule 100 mg PO BID #60 caps 03/23/24 [Rx Confirmed 04/13/24] multivitamin (Daily Multi-Vitamin tablet) 1 tab PO DAILY 03/23/24 [History Confirmed 04/13/24] zinc acetate 50 mg (zinc) capsule (Galzin) 50 mg PO DAILY 03/23/24 [History Confirmed 04/13/24] cephalexin 500 mg capsule 500 mg PO TID 04/13/24 [History Confirmed 04/13/24] Active Medications Acetaminophen (Acetaminophen 325 Mg Tablet) 650 mg PO Q4H PRN PRN Reason: Pain Scale 1 - 5 Stop: 04/28/25 14:20 Albuterol (Albuterol Neb 2.5 Mg/3 Ml Vial.Neb) 2.5 mg INHALATION Q2H PRN PRN Reason: Shortness Of Breath Stop: 04/28/25 14:20 Atorvastatin Calcium (Atorvastatin 20 Mg Tablet) 20 mg PO DAILY [facility] Stop: 04/29/25 08:59 Budesonide (Budesonide 3 Mg Capdr...Er) 3 mg PO DAILY [facility] Stop: 04/29/25 08:59 Docusate Sodium (Docusate 100 Mg Capsule) 200 mg PO BID PRN PRN Reason: Constipation Stop: 04/28/25 14:20 Gabapentin (Gabapentin 100 Mg Capsule) 100 mg PO BID [facility] Stop: 04/28/25 20:59 Heparin Sodium (Porcine) (Heparin 5,000 Unit/Ml Vial) 5,000 unit SUBCUT Q12HR DAY Stop: 04/28/25 20:59 Hydralazine HCl (Hydralazine 20 Mg/Ml Vial) 10 mg IV-PUSH Q4H PRN PRN Reason: if SBP > 185 Stop: 04/28/25 14:20 Hydromorphone HCl (Hydromorphone 1 Mg/Ml Syringe) 0.25 mg IV-PUSH Q4H PRN PRN Reason: pain Ceftriaxone Sodium (Rocephin) 1 gm in 50 mls @ 100 mls/hr IV Q24H DAY Sodium Chloride (0.9% Sodium Chloride 1,000 Ml) 1,000 mls @ 100 mls/hr IV .[id number] Stop: 04/28/25 14:29 Last Admin: 04/28/24 16:51 Dose: 100 mls/hr Metronidazole (Flagyl) 500 mg in 100 mls @ 100 mls/hr IV Q8H [facility] Nebivolol (Nebivolol 5 Mg Tablet) 10 mg PO DAILY [facility] Stop: 04/29/25 08:59 Oxycodone HCl (Oxycodone Ir 5 Mg Tablet) 5 mg PO Q4HR PRN PRN Reason: Pain Last Admin: 04/28/24 16:48 Dose: 5 mg Pantoprazole Sodium (Pantoprazole 40 Mg Vial) 40 mg IV-PUSH DAILY [facility] Stop: 04/29/25 08:59 Sodium Chloride (Sodium Chloride 0.9 % 10 Ml Vial.Pf) 10 ml INJECTION PRN PRN PRN Reason: Dilution Stop: 04/28/25 14:32 Sodium Chloride (Sodium Chloride 0.9 % 10 Ml Syringe) 10 ml IV-PUSH PRN PRN PRN Reason: Flush Stop: 04/28/25 14:32 Exam Const General: cooperative, comfortable and in distress Orientation: alert, awake and oriented x3 HEENT Mouth: oral mucosae normal Eyes Conjunctivae: conjunctivae normal Chest Other: Scar for open heart surgery seen on examination Resp Effort & Inspection: normal respiratory effort, able to speak in complete sentences, symmetric chest movement and no cough Auscultation: clear to auscultation bilaterally, no crackles, no rales and no rhonchi Cardio Rate: regular rate Rhythm: regular rhythm Pulses: radial pulses present GI Inspection: distended Palpation: soft, not firm, no guarding and tender in the epigastrum, in the RLQ and in the RUQ Auscultation: normal bowel sounds Skin General: no rashes or lesions noted Hair: normal Nails: normal Neuro General: patient alert, patient awake and patient oriented x3 Speech: speech normal Psych Speech and Movement: speech and movement normal Attitude: cooperative Thought Process: normal Results - Gen. Surgery Labs 04/28/24 14:05 04/28/24 14:05 Laboratory Results - last 72 hr 04/28/24 14:13: Lactic Acid 1.2 04/28/24 14:05: Corrected WBC 15.8 H, Uncorrected WBC Count 15.8 H, RBC 3.90, Hgb 11.4 L, Hct 34.1, MCV 87.5, MCH 29.1, MCHC 33.3, RDW 15.2, Plt Count 486 H, MPV 7.0, Neut % (Auto) 93.7, Lymph % (Auto) 1.9, [place] % (Auto) 4.2, Eos % (Auto)0.0, Baso % (Auto) 0.2, Nucleat RBC Rel Count 0.1, Neut # (Auto) 14.9 H, Lymph #(Auto) 0.3 L, [place] # (Auto) 0.7, Eos # (Auto) 0.0, Baso # (Auto) 0.0, PHA Creatinine Clear N/A, Sodium 132 L, Potassium 4.9, Chloride 100, Carbon Dioxide 23.4, Anion Gap 13.5, BUN 46 H, Creatinine 2.05 H, Est GFR (CKD-EPI) 23.041, Glucose 134 H, Calcium 9.3, Magnesium 2.0, Total Bilirubin 0.5, AST 20, ALT 11, Alkaline Phosphatase 23 L, Total Protein 6.6, Albumin 3.6, Globulin 3.0, Albumin/Globulin Ratio 1.2 A&P - General Surgery (1) Bowel obstruction: Qualifiers: Intestinal obstruction extent: unspecified extent Intestinal obstruction type: other intestinal obstruction Qualified Code(s): K56.699 - Other intestinal obstruction unspecified as to partial versus complete obstruction (2) Chronic colitis: Plan Patient currently does not have an acute surgical abdomen. She has not had recent vomiting. Will follow abdominal exam, x-rays, symptoms. Follow-up x-rays tomorrow. Increase activity. If patient does develop increased abdominal distention or nausea/vomiting, she may require nasogastric tube placement. If she has developed worsening pain, we would need to reevaluate for need for surgery. Keep n.p.o. for now. Documented By: Tyrese Girard MD 04/28/24 [id number] Signed By: <Electronically signed by MD Tyrese Girard> 04/28/24 7790 [facility] Work Phone: [phone] 291-147503-21-2025 [place] [id number] General Surgery Consult Note Signed Patient: Sage Hsu MR#: [id number] : 1935 Acct:[id number] Age/Sex: 88 / F Adm Date: 5 Loc: 4N Room: 9B1006-4 Type: ADM IN Attending Dr: Hortensia Owen MD Copies to: MD Gypsy Ha MD Ruta Semaskiene, MD~ History of Present Illness Date of consult: 04/28/2024 Reason for consult: abdominal pain Requesting/Attending Provider: Hortensia Owen MD History of present illness: Patient, 88 year old female with past medical history of Coronary artery, Disease, IBS with Diarrhea, Hypertension, Diverticulosis, and surgical history of cholecystectomy and hysterectomy, presentedto the Emergency Department todayfor epigastric abdominal pain. This pain started 5 days ago which lead to her being hospitalized at [place] where she was diagnosed with microscopic colitis. Patienthas a history of chronic colitis and has been on budesonide. 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 Patient was an inpatient at [place] for a few days. However, she developed worsening abdominal pain and CT scan there showed evidence of an early bowel obstruction which was new compared to her admission CT scan. She was then transferred here to [facility]. She states most of the pain is in the epigastric region. Her last bowel movement was this morning which did not cause her pain and she did not notice blood. She states she has been having chronic diarrhea. She is nauseous but has not vomited. Patient had her last colonoscopy 10 years ago which showed diverticulosis. Patient is currently on plavix. Patient also has a history of some type of hernia repair although the patient and family could not recall if it was an abdominal wall hernia or a hiatal hernia repair. Abdominal X ray results DILATED BOWEL LOOPS ARE PRESENT. DEVELOPING SBO CANNOT BE EXCLUDED. Review of Systems Constitutional Constitutional: Denies body ache(s), Denies fever(s) and Reports weakness Cardiovascular Cardiovascular: Denies chest pain, Denies dyspnea, Denies leg edema and Denies lightheadedness Respiratory Respiratory: Denies cough, Denies dyspnea and Denies hemoptysis Gastrointestinal Gastrointestinal: Reports abdominal pain (Right upper quadrent), Reports bloating, Reports constipation, Denies hematochezia, Reports loose stools, Reports nausea and Denies vomiting Genitourinary Genitourinary: Denies difficulty voiding and Denies dysuria Hematologic/Lymphatic Hematologic/Lymphatic: Reports easy bruising [facility] Medical History CAD (coronary artery disease) Cataracts, bilateral Irritable bowel syndrome with diarrhea Microscopic colitis Hyperlipidemia Hypertension Essential (primary) hypertension Dysuria Diverticulosis of large intestine without hemorrhage Clostridioides difficile infection Surgical History History of tonsillectomy and adenoidectomy History of quadruple bypass H/O rectal sphincterotomy S/P hernia repair Hx of hernia repair H/O rectal sphincterotomy Hx of bilateral cataract extraction History of quadruple bypass Hx of cholecystectomy History of left hip replacement Hx of hysterectomy Family History Father Mother Brother Cancer bladder cancer Diabetes Social History Smoking Status: Former smoker Substance Use Type: None Allergies & Medications Medications and Allergies Allergies Penicillins Allergy (Severe, Verified 04/13/24 14:59) Rash levofloxacin Allergy (Unknown, Verified 04/13/24 14:59) shaking promethazine (From Phenergan) Allergy (Unknown, Verified 04/13/24 14:59) Vomiting, anaphylaxis ezetimibe Allergy (Verified 04/13/24 14:59) Unknown Reaction gemfibrozil Allergy (Verified 04/13/24 14:59) Unknown Reaction Histamine H2 Inhibitors Allergy (Verified 04/13/24 14:59) Unknown Reaction propoxyphene Allergy (Verified 04/13/24 14:59) Unknown Reaction Antihistamine Allergy (Unknown, Uncoded 05/21/23 09:56) Unknown Reaction Home Medications cholecalciferol (vitamin D3) 50 mcg (2,000 unit) tablet (Vitamin D3) 2,000 unit PO DAILY 12/06/17 [History Confirmed 04/13/24] Lactobacillus acidophilus-Bifidobac.animalis 2.5 billion cell capsule (Daily Probiotic) cap PO 04/15/23 [History Confirmed 04/13/24] clopidogrel 75 mg tablet 75 mg PO DAILY 04/15/23 [History Confirmed 04/13/24] estradiol 0.01% (0.1 mg/gram) vaginal cream See Rx Instructions .Route .COMPLEX #42.5 grams 04/26/23 [Rx Confirmed 04/13/24] bismuth subsalicylate 262 mg/15 mL oral suspension (Pepto-Bismol) 524 mg PO Q30- 60M PRN 05/21/23 [History Confirmed 04/13/24] pantoprazole 20 mg tablet,delayed release 20 mg PO DAILY #90 tabs 08/09/23 [Rx Confirmed 04/13/24] simvastatin 40 mg tablet 40 mg PO DAILY 08/24/23 [History Confirmed 04/13/24] budesonide 3 mg capsule,delayed,extended release 3 mg PO DAILY #90 ea 09/22/23 [Rx Confirmed 04/13/24] spironolactone 50 mg tablet See Rx Instructions .Route .COMPLEX #90 tabs 10/13/23 [Rx Confirmed 04/13/24] ascorbic acid (vitamin C) 250 mg tablet 250 mg PO BID 02/21/24 [History Confirmed 04/13/24] melatonin 3 mg capsule 6 mg PO QHS 02/21/24 [History Confirmed 04/13/24] nebivolol 5 mg tablet 10 mg PO DAILY 02/21/24 [History Confirmed 04/13/24] prostat PO BID 02/21/24 [History Confirmed 04/13/24] gabapentin 100 mg capsule 100 mg PO BID #60 caps 03/23/24 [Rx Confirmed 04/13/24] multivitamin (Daily Multi-Vitamin tablet) 1 tab PO DAILY 03/23/24 [History Confirmed 04/13/24] zinc acetate 50 mg (zinc) capsule (Galzin) 50 mg PO DAILY 03/23/24 [History Confirmed 04/13/24] cephalexin 500 mg capsule 500 mg PO TID 04/13/24 [History Confirmed 04/13/24] Active Medications Acetaminophen (Acetaminophen 325 Mg Tablet) 650 mg PO Q4H PRN PRN Reason: Pain Scale 1 - 5 Stop: 04/28/25 14:20 Albuterol (Albuterol Neb 2.5 Mg/3 Ml Vial.Neb) 2.5 mg INHALATION Q2H PRN PRN Reason: Shortness Of Breath Stop: 04/28/25 14:20 Atorvastatin Calcium (Atorvastatin 20 Mg Tablet) 20 mg PO DAILY DAY Stop: 04/29/25 08:59 Budesonide (Budesonide 3 Mg Capdr...Er) 3 mg PO DAILY DAY Stop: 04/29/25 08:59 Docusate Sodium (Docusate 100 Mg Capsule) 200 mg PO BID PRN PRN Reason: Constipation Stop: 04/28/25 14:20 Gabapentin (Gabapentin 100 Mg Capsule) 100 mg PO BID DAY Stop: 04/28/25 20:59 Heparin Sodium (Porcine) (Heparin 5,000 Unit/Ml Vial) 5,000 unit SUBCUT Q12HR DAY Stop: 04/28/25 20:59 Hydralazine HCl (Hydralazine 20 Mg/Ml Vial) 10 mg IV-PUSH Q4H PRN PRN Reason: if SBP > 185 Stop: 04/28/25 14:20 Hydromorphone HCl (Hydromorphone 1 Mg/Ml Syringe) 0.25 mg IV-PUSH Q4H PRN PRN Reason: pain Ceftriaxone Sodium (Rocephin) 1 gm in 50 mls @ 100 mls/hr IV Q24H [facility] Sodium Chloride (0.9% Sodium Chloride 1,000 Ml) 1,000 mls @ 100 mls/hr IV .[id number] Stop: 04/28/25 14:29 Last Admin: 04/28/24 16:51 Dose: 100 mls/hr Metronidazole (Flagyl) 500 mg in 100 mls @ 100 mls/hr IV Q8H [facility] Nebivolol (Nebivolol 5 Mg Tablet) 10 mg PO DAILY [facility] Stop: 04/29/25 08:59 Oxycodone HCl (Oxycodone Ir 5 Mg Tablet) 5 mg PO Q4HR PRN PRN Reason: Pain Last Admin: 04/28/24 16:48 Dose: 5 mg Pantoprazole Sodium (Pantoprazole 40 Mg Vial) 40 mg IV-PUSH DAILY [facility] Stop: 04/29/25 08:59 Sodium Chloride (Sodium Chloride 0.9 % 10 Ml Vial.Pf) 10 ml INJECTION PRN PRN PRN Reason: Dilution Stop: 04/28/25 14:32 Sodium Chloride (Sodium Chloride 0.9 % 10 Ml Syringe) 10 ml IV-PUSH PRN PRN PRN Reason: Flush Stop: 04/28/25 14:32 Exam Const General: cooperative, comfortable and in distress Orientation: alert, awake and oriented x3 HEENT Mouth: oral mucosae normal Eyes Conjunctivae: conjunctivae normal Chest Other: Scar for open heart surgery seen on examination Resp Effort & Inspection: normal respiratory effort, able to speak in complete sentences, symmetric chest movement and no cough Auscultation: clear to auscultation bilaterally, no crackles, no rales and no rhonchi Cardio Rate: regular rate Rhythm: regular rhythm Pulses: radial pulses present GI Inspection: distended Palpation: soft, not firm, no guarding and tender in the epigastrum, in the RLQ and in the RUQ Auscultation: normal bowel sounds Skin General: no rashes or lesions noted Hair: normal Nails: normal Neuro General: patient alert, patient awake and patient oriented x3 Speech: speech normal Psych Speech and Movement: speech and movement normal Attitude: cooperative Thought Process: normal Results - Gen. Surgery Labs 04/28/24 14:05 04/28/24 14:05 Laboratory Results - last 72 hr 04/28/24 14:13: Lactic Acid 1.2 04/28/24 14:05: Corrected WBC 15.8 H, Uncorrected WBC Count 15.8 H, RBC 3.90, Hgb 11.4 L, Hct 34.1,MCV 87.5, MCH 29.1, MCHC 33.3, RDW 15.2, Plt Count 486 H, MPV 7.0, Neut % (Auto) 93.7, Lymph % (Auto) 1.9, [place] % (Auto) 4.2, Eos % (Auto)0.0, Baso % (Auto) 0.2, Nucleat RBC Rel Count 0.1, Neut # (Auto) 14.9 H, Lymph #(Auto) 0.3 L, [place] # (Auto) 0.7, Eos # (Auto) 0.0, Baso # (Auto) 0.0, PHA Creatinine Clear N/A, Sodium 132 L, Potassium 4.9, Chloride 100, Carbon Dioxide 23.4, Anion Gap 13.5, BUN 46 H, Creatinine 2.05 H, Est GFR (CKD-EPI) 23.041, Glucose 134 H, Calcium 9.3, Magnesium 2.0, Total Bilirubin 0.5, AST 20, ALT 11, Alkaline Phosphatase 23 L, Total Protein 6.6, Albumin 3.6, Globulin 3.0, Albumin/Globulin Ratio 1.2 A&P - General Surgery (1) Bowel obstruction: Qualifiers: Intestinal obstruction extent: unspecified extent Intestinal obstruction type: other intestinal obstruction Qualified Code(s): K56.699 - Other intestinal obstruction unspecified as to partial versus complete obstruction (2) Chronic colitis: Plan Patient currently does not have an acute surgical abdomen. She has not had recent vomiting. Will follow abdominal exam, x-rays, symptoms. Follow-up x-rays tomorrow. Increase activity. If patient does develop increased abdominal distention or nausea/vomiting, she may require nasogastric tube placement. If she has developed worsening pain, we would need to reevaluate for need for surgery. Keep n.p.o. for now. Documented By: Tyrese Girard MD 04/28/241746 Signed By: 04/28/24 1834 [facility]03-21-2025 History and physical note Author Hortensia Owen [facility] Note Date/Time April 28, 2024 2:4 5pm [facility] [address] [place] [address] Hospitalist H&P Signed Patient: Sage Hsu MR#: [id number] : 1935 Acct:[id number] Age/Sex: 88 / F Adm Date: 5 Loc: 4N Room: [address] [place] [address] Type: ADM IN Attending Dr: Hortensia Owen MD Copies to: MD Hortensia Alarcon MD~ HPI DATE OF EXAMINATION: 04/28/24 CHIEF COMPLAINT: Abdominal pain, questionable small bowel obstruction HISTORY OF PRESENT ILLNESS: 88 years old female was admitted to [facility] on April 25, 2024 for abdominal pain. At that time white blood cell count is noted to be 15, hemoglobin 11.3, creatinine 1.3, lipase 18, urinalysis were positive for infection, CT scan of the abdomen and pelvis with IV contrast was done which showed moderate enteritis. Patient was started on Cipro for urinary tract infection admitted to the hospital. Patient did improve, diet adjusted, however today shegot worse. More abdominal pain, mainly in epigastric and right upper quadrant, patient is status post complicated cholecystectomy with bile leak in the past, with history of hysterectomy, colonoscopy within the last 10 years showing microscopic colitis, with history of upper GI bleeding due to ulcer [address] scan without contrast of the abdomen and pelvis was repeated which showed bilateral pleural parenchymal changes, infectious in the region versus CHF, minimal ascites, pneumobilia with status post cholecystectomy, with unremarkable pancreas, spleen is normal in size, interval dilatation of small bowel likely related to early or incomplete small bowel obstruction. Which is new from CT scan couple days ago. Patient was transferred here after discussion with general surgeon for further treatment Currently patient complains of some nausea and belching but no vomiting. She still complains of abdominal pain epigastric area and right upper quadrant radiating to the back, denies any dysuria urgency frequency, did have bowel movements in the morning, nonbloody, denies any fevers any chills. Patient does have underlying history of coronary artery disease status post CABGin 1998, she did have a stress test in 2023 before femoral-popliteal bypass of the right lower extremity in December 2023. She has been following with [facility] in [facility]. Never had a cardiac cath nor stent. Recently denies any chest pain and shortness of breath any palpitations any dizziness anysyncopal episode. Patient lives at independent living facility 10 systems are reviewed and are negative apart as mentioned H&P General -patient is awake alert oriented ?3, does not appear to be in distress HEENT -dry oropharyngeal mucosa Cardiovascular -S1 plus S2, with regular rate, distant heart sounds Pulmonary -diminished breath sounds bilaterally Gastrointestinal -abdomen is soft, distended, diffusely tender, mainly in the epigastric and right upper quadrant Musculoskeletal -no significant joint swelling Neurological -no focal Skin -no significant ulcers, no rash noted Extremities -1+ right lower extremity edema, which is chronic for the patient Psychiatry - appropriate affect Laboratory work up, imaging studies reviewed EKG personally reviewed by me normal sinus rhythm with right bundle branch blockwithout ischemic changes Previous records in the computer system reviewed X-ray of the abdomen showed dilated bowel loops present developing small bowel obstruction cannot be ruled out [facility] Medical History CAD (coronary artery disease) Cataracts, bilateral Irritable bowel syndrome with diarrhea Microscopic colitis Hyperlipidemia Hypertension Essential (primary) hypertension Dysuria Diverticulosis of large intestine without hemorrhage Clostridioides difficile infection Surgical History History of tonsillectomy and adenoidectomy History of quadruple bypass H/O rectal sphincterotomy S/P hernia repair Hx of hernia repair H/O rectal sphincterotomy Hx of bilateral cataract extraction History of quadruple bypass Hx of cholecystectomy History of left hip replacement Hx of hysterectomy Family History Father Mother Brother Cancer bladder cancer Diabetes Social History Smoking Status: Former smoker Substance Use Type: None Meds Medications and Allergies Allergies Penicillins Allergy (Severe, Verified 04/13/24 14:59) Rash levofloxacin Allergy (Unknown, Verified 04/13/24 14:59) shaking promethazine (From Phenergan) Allergy (Unknown, Verified 04/13/24 14:59) Vomiting, anaphylaxis ezetimibe Allergy (Verified 04/13/24 14:59) Unknown Reaction gemfibrozil Allergy (Verified 04/13/24 14:59) Unknown Reaction Histamine H2 Inhibitors Allergy (Verified 04/13/24 14:59) Unknown Reaction propoxyphene Allergy (Verified 04/13/24 14:59) Unknown Reaction Antihistamine Allergy (Unknown, Uncoded 05/21/23 09:56) Unknown Reaction Home Medications cholecalciferol (vitamin D3) 50 mcg (2,000 unit) tablet (Vitamin D3) 2,000 unit PO DAILY 12/06/17 [History Confirmed 04/13/24] Lactobacillus acidophilus-Bifidobac.animalis 2.5 billion cell capsule (Daily Probiotic) cap PO 04/15/23 [History Confirmed 04/13/24] clopidogrel 75 mg tablet 75 mg PO DAILY 04/15/23 [History Confirmed 04/13/24] estradiol 0.01% (0.1 mg/gram) vaginal cream See Rx Instructions .Route .COMPLEX #42.5 grams 04/26/23 [Rx Confirmed 04/13/24] bismuth subsalicylate 262 mg/15 mL oral suspension (Pepto-Bismol) 524 mg PO Q30- 60M PRN 05/21/23 [History Confirmed 04/13/24] pantoprazole 20 mg tablet,delayed release 20 mg PO DAILY #90 tabs 08/09/23 [Rx Confirmed 04/13/24] simvastatin 40 mg tablet 40 mg PO DAILY 08/24/23 [History Confirmed 04/13/24] budesonide 3 mg capsule,delayed,extended release 3 mg PO DAILY #90 ea 09/22/23 [Rx Confirmed 04/13/24] spironolactone 50 mg tablet See Rx Instructions .Route .COMPLEX #90 tabs 10/13/23 [Rx Confirmed 04/13/24] ascorbic acid (vitamin C) 250 mg tablet 250 mg PO BID 02/21/24 [History Confirmed 04/13/24] melatonin 3 mg capsule 6 mg PO QHS 02/21/24 [History Confirmed 04/13/24] nebivolol 5 mg tablet 10 mg PO DAILY 02/21/24 [History Confirmed 04/13/24] prostat PO BID 02/21/24 [History Confirmed 04/13/24] gabapentin 100 mg capsule 100 mg PO BID #60 caps 03/23/24 [Rx Confirmed 04/13/24] multivitamin (Daily Multi-Vitamin tablet) 1 tab PO DAILY 03/23/24 [History Confirmed 04/13/24] zinc acetate 50 mg (zinc) capsule (Galzin) 50 mg PO DAILY 03/23/24 [History Confirmed 04/13/24] cephalexin 500 mg capsule 500 mg PO TID 04/13/24 [History Confirmed 04/13/24] Assessment & Plan Assessment/Plan (1) Hypertension: Plan 1. Suspected small bowel obstruction with previous history of complicated cholecystectomy, history of hysterectomy Complains of nausea but no vomiting, did have bowel movement this morning For now symptomatic treatment, n.p.o., hydration, PPIs, pain management Consult gastroenterology Repeat abdominal x-ray in a.m. 2. Acute kidney injury on chronic kidney disease stage III, with baseline creatinine 1.5 Kidney function slightly worse, she did get contrast on April 25 For now gentle hydration, strict input output, avoid any nephrotoxic medications Bladder scan Repeat kidney function in a.m. 3. Coronary artery disease that is post CABG in 1998, status post stress test in 2023 before right lower extremity femoral-popliteal bypass, per family stresstest was unremarkable Denies any symptoms such as chest pain shortness of breath EKG normal sinus with right bundle branch block no ischemic findings 4. Hypertension, blood pressure the higher range, will add hydralazine 5. Microscopic colitis, does not need IV steroids, continue with beclomethasone 6. Previous history of C. difficile colitis If diarrhea will check for C. difficile as she does have significant worsening of leukocytosis 7. DVT prophylaxis heparin IP vs OBS Justification Based on differential dx, clinical care plan, and risk of adverse events, if untreated, in my clinical judgement this patient requires an acute care setting as: INPATIENT because of an expectation of an over 2 midnight stay. Estimated length of stay (# of days): 35 Documented By: Hortensia Owen MD 04/28/24 1435 Signed By: <Electronically signed by Hortensia Owen MD> 04/28/24 1445 [facility] Work Phone: 1(551) 390-611603-21-2025 Evaluation note* Diagnosis Onset Date Resolution Status Admit Date Arterial vascular disease acute April 28, 2024 1:25pm Bowel obstruction acute April 092024 1:25pm Chronic colitis acute April 1:25pm Hyperlipidemia acute April 1:25pm Hypertension acute April 28, 2024 1:25pm Post-operative pain acute April 28, 2024 1:25pm Status post small bowel resection ac eleuterio April 28, 2024 1:25pm Bowel obstruction acute May 092024 1:33pm History of peptic ulcer disease acut e May 22, 2024 1:33pm Microscopic colitis acute May 22, 2024 1:33pm Recurrent UTI acute May 25, 2024 2:35pm [facility] Work Phone: 1(542) 460-728303-21-2025 [place] [address] Hospitalist H&P Signed Patient: Sage Hsu MR#: [id number] : 1935 Acct:[id number] Age/Sex: 88 / F Adm Date: 5 Loc: 4N Room: 4R7166-6 Type: ADM IN Attending Dr: Hortensia Owen MD Copies to: MD Hortensia Alarcon MD~ HPI DATE OF EXAMINATION: 04/28/24 CHIEF COMPLAINT: Abdominal pain, questionable small bowel obstruction HISTORY OF PRESENT ILLNESS: 88 years old female was admitted to [facility] on April 25, 2024 for abdominal pain. At that time white blood cell count is noted to be 15, hemoglobin 11.3, creatinine 1.3, lipase 18, urinalysiswere positive for infection, CT scan of the abdomen and pelvis with IV contrast was done which showed moderate enteritis. Patient was started on Cipro for urinary tract infection admitted to the hospital. Patient did improve, diet adjusted, however today shegot worse. More abdominal pain, mainly inepigastric and right upper quadrant, patient is status post complicated cholecystectomy with bile leak in the past, with history of hysterectomy, colonoscopy within the last 10 years showing microscopic colitis, with history of upper GI bleeding due to ulcer [address] scan without contrast of the abdomen and pelvis was repeated which showed bilateral pleural parenchymal changes, infectious in the region versus CHF, minimal ascites, pneumobilia with status post cholecystectomy, with unremarkable pancreas, spleen is normal in size, interval dilatation of small bowel likely related to early or incomplete small bowel obstruction. Which is new from CT scan couple days ago. Patient was transferred here after discussion with general surgeon for further treatment Currently patient complains of some nausea and belching but no vomiting. She still complains of abdominal pain epigastric area and right upper quadrant radiating to the back, denies any dysuria urgency frequency, did have bowel movements in the morning, nonbloody, denies any fevers any chills. Patient does have underlying history of coronary artery disease status post CABGin 1998, she did have a stress test in 2023 before femoral-popliteal bypass of the right lower extremity in December 2023. She has been following with [facility] in [facility]. Never had a cardiac cath nor stent.Recently denies any chest pain and shortness of breath any palpitations any dizziness anysyncopal episode. Patient lives at independent living facility 10 systems are reviewed and are negative apart as mentioned H&P General -patient is awake alert oriented ?3, does not appear to be in distress HEENT -dry oropharyngeal mucosa Cardiovascular -S1 plus S2, with regular rate, distant heart sounds Pulmonary -diminished breath sounds bilaterally Gastrointestinal -abdomen is soft, distended, diffusely tender, mainly in the epigastric and right upper quadrant Musculoskeletal -no significant joint swelling Neurological -no focal Skin -no significant ulcers, no rash noted Extremities -1+ right lower extremity edema, which is chronic for the patient Psychiatry - appropriate affect Laboratory work up, imaging studies reviewed EKG personally reviewed by me normal sinus rhythm with right bundle branch blockwithout ischemic changes Previous records in the computer system reviewed X-ray of the abdomen showed dilated bowel loops present developing small bowel obstruction cannot be ruled out PMFSH Medical History CAD (coronary artery disease) Cataracts, bilateral Irritable bowel syndrome with diarrhea Microscopic colitis Hyperlipidemia Hypertension Essential (primary) hypertension Dysuria Diverticulosis of large intestine without hemorrhage Clostridioides difficile infection Surgical History History of tonsillectomy and adenoidectomy History of quadruple bypass H/O rectal sphincterotomy S/P hernia repair Hx of hernia repair H/O rectal sphincterotomy Hx of bilateral cataract extraction History of quadruple bypass Hx of cholecystectomy History of left hip replacement Hx of hysterectomy Family History Father Mother Brother Cancer bladder cancer Diabetes Social History Smoking Status: Former smoker Substance Use Type: None Meds Medications and Allergies Allergies Penicillins Allergy (Severe, Verified 04/13/24 14:59) Rash levofloxacin Allergy (Unknown, Verified 04/13/24 14:59) shaking promethazine (From Phenergan) Allergy (Unknown, Verified 04/13/24 14:59) Vomiting, anaphylaxis ezetimibe Allergy (Verified 04/13/24 14:59) Unknown Reaction gemfibrozil Allergy (Verified 04/13/24 14:59) Unknown Reaction Histamine H2 Inhibitors Allergy (Verified 04/13/24 14:59) Unknown Reaction propoxyphene Allergy (Verified 04/13/24 14:59) Unknown Reaction Antihistamine Allergy (Unknown, Uncoded 05/21/23 09:56) Unknown Reaction Home Medications cholecalciferol (vitamin D3) 50 mcg (2,000 unit) tablet (Vitamin D3) 2,000 unit PO DAILY 12/06/17 [History Confirmed 04/13/24] Lactobacillus acidophilus-Bifidobac.animalis 2.5 billion cell capsule (Daily Probiotic) cap PO 04/15/23 [History Confirmed 04/13/24] clopidogrel 75 mg tablet 75 mg PO DAILY 04/15/23 [History Confirmed 04/13/24] estradiol 0.01% (0.1 mg/gram) vaginal cream See Rx Instructions .Route .COMPLEX #42.5 grams 04/26/23 [Rx Confirmed 04/13/24] bismuth subsalicylate 262 mg/15 mL oral suspension (Pepto-Bismol) 524 mg PO Q30- 60M PRN 05/21/23 [History Confirmed 04/13/24] pantoprazole 20 mg tablet,delayed release 20 mg PO DAILY #90 tabs 08/09/23 [Rx Confirmed 04/13/24] simvastatin 40 mg tablet 40 mg PO DAILY 08/24/23 [History Confirmed 04/13/24] budesonide 3 mg capsule,delayed,extended release 3 mg PO DAILY #90 ea 09/22/23 [Rx Confirmed 04/13/24] spironolactone 50 mg tablet See Rx Instructions .Route .COMPLEX #90 tabs 10/13/23 [Rx Confirmed 04/13/24] ascorbic acid (vitamin C) 250 mg tablet 250 mg PO BID 02/21/24 [History Confirmed 04/13/24] melatonin 3 mg capsule 6 mg PO QHS 02/21/24 [History Confirmed 04/13/24] nebivolol 5 mg tablet 10 mg PO DAILY 02/21/24 [History Confirmed 04/13/24] prostat PO BID 02/21/24 [History Confirmed 04/13/24] gabapentin 100 mg capsule 100 mg PO BID #60 caps 03/23/24 [Rx Confirmed 04/13/24] multivitamin (Daily Multi-Vitamin tablet) 1 tab PO DAILY 03/23/24 [History Confirmed 04/13/24] zinc acetate 50 mg (zinc) capsule (Galzin) 50 mg PO DAILY 03/23/24 [History Confirmed 04/13/24] cephalexin 500 mg capsule 500 mg PO TID 04/13/24 [History Confirmed 04/13/24] Assessment & Plan Assessment/Plan (1) Hypertension: Plan 1. Suspected small bowel obstruction with previous history of complicated cholecystectomy, history of hysterectomy Complains of nausea but no vomiting, did have bowel movement this morning For now symptomatic treatment, n.p.o., hydration, PPIs, pain management Consult gastroenterology Repeat abdominal x-ray in a.m. 2. Acute kidney injury on chronic kidney disease stage III, with baseline creatinine 1.5 Kidney function slightly worse, she did get contrast on April 25 For now gentle hydration, strict input output, avoid any nephrotoxic medications Bladder scan Repeat kidney function in a.m. 3. Coronary artery disease that is post CABG in 1998, status post stress test in 2023 before right lower extremity femoral-popliteal bypass, per family stresstest was unremarkable Denies any symptoms such as chest pain shortness of breath EKG normal sinus with right bundle branch block no ischemic findings 4. Hypertension, blood pressure the higher range, will add hydralazine 5. Microscopic colitis, does not need IV steroids, continue with beclomethasone 6. Previous history of C. difficile colitis If diarrhea will check for C. difficile as she does have significant worsening of leukocytosis 7. DVT prophylaxis heparin IP vs OBS Justification Based on differential dx, clinical care plan, and risk of adverse events, if untreated, in my clinical judgement this patient requires an acute care setting as: INPATIENT because of an expectation ofan over 2 midnight stay. Estimated length of stay (# of days): 35 Documented By: Hortensia Owen MD 04/28/241434 Signed By: 04/28/24 1445 [facility]03-21-2025 Discharge summary Author Dereje Gil [facility] Note Date/Time May 05, 2024 12: 20pm [facility] [address] [place] [address] Discharge Summary Signed Patient: Sage Hsu MR#: [id number] : 1935 Acct:[id number] Age/Sex: 88 / F Adm Date: 5 Loc: Room: [address] [place] [address]: Dereje Gil MD Copies to: MD Gypsy Glasgow MD~ Providers Date of Discharge: 05/05/24 Discharging Provider: Dereje Gil Primary Care Provider: Gypsy Mcmahon Consults: 04/28/24 14:22 Consult to General Surgery Routine Comment: Consulting Provider: Tyrese Girard Reason For Exam: sbo Has Provider Been Notified: Yes Date of Notification: 04/28/24 Time of Notification: 14:28 04/28/24 14:23 Consult to Occupational Therapy Routine Comment: Physician Instructions: Consult to OT for:: Evaluation and Treat Consult to Physical Therapy Routine Comment: Physician Instructions: Consult to PT for:: Evaluation and Treat 04/30/24 15:01 Consult to Occupational Therapy Routine Comment: Physician Instructions: Consult to OT for:: Evaluation and Treat Consult to Physical Therapy Routine Comment: Physician Instructions: Consult to PT for:: Evaluation and Treat 05/03/24 06:11 Consult to Physiatry Routine Comment: Consulting Provider: [facility] - Phys Med - Rehab Reason For Exam: rehab Has Provider Been Notified: Yes Date of Notification: 05/03/24 Time of Notification: 06:12 Discharge Diagnosis (1) Status post small bowel resection: (2) Bowel obstruction: (3) Chronic colitis: (4) Hyperlipidemia: (5) Hypertension: (6) CAD (coronary artery disease): Final Diagnosis Final Discharge Diagnosis: As above Summary Hospital Course Hospital course: Ms. Hsu is an 88yo F with PMH of CAD status post CABG 1998, HTN, microscopic colitis, history of complicated cholecystectomy who presented to the emergency department with complaints of severe abdominal pain. Abdominal x-ray noted dilated bowel loops present and concern for small bowel obstruction. Patient was initially managed conservatively, but ultimately underwent exploratory laparotomy, lysis of adhesions, small bowel resection and removal of mesh on 04/29/2024. Patient had wound VAC in place. She did remain with NG tube in place until was eventually clamped and removed. Beckman catheter was removed and eventually wound VAC was removed after patient was tolerating p.o. well. She was recommended for discharge by general surgery on 05/05/24. Patient was restarted on many of her home medications, including aspirin 81 mg with Xarelto (2.5 mg twice daily dosing for CAD). She was recommended to continue this on discharge. She was evaluated by PT and OT and recommended for discharge to retirement at the [facility]. She will be monitored closely for bleeding after discharge to retirement. 35 minutes spent coordinating the discharge of this patient Time Spent with Patient Time spent providing/coordinating discharge services (# min): 35 Surgeries and Procedures Operation Date: 04/29/24 11:16 Actual Procedures p OR Exploratory Lapartomy, Lysis of adhesions, Small bowel resection with reanastomosis, Removal of Umbilical Hernia Mesh - Tyrese Girard MD Discharge Plan Discharge Plan Patient Disposition: Longterm Facility Activity: Ambulate as Tolerated Diet: Other Comment: Low residue diet Additional Instructions: Longterm Facility to manage care: - Full code - PT/OT eval and treat - Routine vital signs - Mepilex border foam to Coccyx for added protection, change every 3 days andas needed - Reposition every 2 hours and as needed - Oxygen a 1L per nasal cannula per chronic orders - Monitor incision for s/s of infection - Routine GI assessment 1. No driving if taking narcotic pain medication. 2. No lifting more than 20 pounds for 8 weeks. 3. May shower. Instructions: Small Bowel Resection (DC), Low-fiber diet Prescriptions: Continued estradiol 0.01 % (0.1 mg/gram) cream See Rx Instructions .ROUTE .COMPLEX Qty: 42.5 3RF Dose Instruction: INSERT 1 GRAM VAGINALLY TWICE WEEKLY DIRECTED Rx Instructions: INSERT 1 GRAM VAGINALLY TWICE WEEKLY DIRECTED pantoprazole 20 mg tablet,delayed release (DR/EC) 20 mg PO DAILY Qty: 90 2RF budesonide 3 mg capsule,delayed,extend.release 3 mg PO DAILY Qty: 90 2RF spironolactone 50 mg tablet See Rx Instructions .ROUTE .COMPLEX Qty: 90 3RF Dose Instruction: TAKE 1 TABLET BY MOUTH ONCE DAILY Rx Instructions: TAKE 1 TABLET BY MOUTH ONCE DAILY Xarelto 2.5 mg tablet 2.5 mg PO BID aspirin [Adult Aspirin Regimen] 81 mg tablet,delayed release (DR/EC) 81 mg PO DAILY loperamide [Anti-Diarrheal (loperamide)] 2 mg capsule 2 mg PO .6hr PRN (Reason: loose stool) cholecalciferol (vitamin D3) [Vitamin D3] 2,000 unit Tablet 2,000 unit PO DAILY Daily Probiotic 2.5 billion cell capsule 1 cap PO DAILY Rx Instructions: dose unknown bismuth subsalicylate [Pepto-Bismol] 262 mg/15 mL suspension 524 mg PO Q30-60M PRN (Reason: diarrhea) Rx Instructions: do not exceed 8 doses in a 24 hour period Galzin 50 mg (zinc) capsule 50 mg PO DAILY multivitamin [Daily Multi-Vitamin] Tablet 1 tab PO DAILY gabapentin 100 mg capsule 100 mg PO BID Qty: 60 0RF simvastatin 40 mg tablet 40 mg PO DAILY nebivolol 5 mg tablet 10 mg PO DAILY ascorbic acid (vitamin C) 250 mg tablet 250 mg PO BID prostat PO BID melatonin 3 mg capsule 6 mg PO QHS PRN (Reason: sleep) Discontinued clopidogrel 75 mg tablet 75 mg PO DAILY Rx Instructions: FreeTextSi tablet Orally Once a day; Note: Source Status: Taking; Provider: Winter CaseyI: [id number]) cephalexin 500 mg capsule 500 mg PO TID Follow Up: Tyrese Girard MD [Active Staff] - 05/17/24 11:15 am Continuity of Care Document Health Concerns: A [facility] screening has identified you as FRAIL or AT RISK FOR FRAILTY. This puts you at a higher risk for infection, illness, falls,and other injuries. Here are four ways to help you reduce your risk of frailty: 1. IDENTIFY EARLY SIGNS OF FRAILTY ? Discuss contributing factors and concerns with your doctor 2. BE ACTIVE ? Walking and light strengthening exercises will help reduce weakness 3. EAT WELL ? Aim for three healthy meals a day that are high in protein 4. THINK POSITIVE ? Keep your mind active by being sociable and continuing to learn References: Stay Strong: Four Ways to Beat the Frailty [email or web address]-[email or web address]/vbof-xxfysa-u our-w [email or web address]-pxj-ullovuo-bvnp Exam Physical Exam Vital Signs: Temp Pulse Resp BP Pulse Ox O2 Del Method O2 Flow Rate 97.7 F 72 16 170/70 H 94 L Room Air 2 05/05/24 08:32 05/05/24 08:32 05/05/24 08:32 05/05/24 08:32 05/05/24 08:32 05/05/24 08:34 05/04/24 10:30 FiO2 0 05/02/24 23:33 Narrative: Constitutional: Frail, elderly WF, resting in chair at bedside HEENT: No NG tube in place, resting comfortably Cardiovascular: RRR, no M/R/G, normal S1 and S2 Respiratory: Clear to auscultation bilaterally, no wheezes, rales or rhonchi GI: Soft, mildly tender to palpation. Wound VAC in place. Hypoactive bowel sounds. No rebound tenderness or guarding : Deferred Extremities: No clubbing, cyanosis or edema Neuro: AAOx3, patient awake, able to follow commands, answer questions without difficulty. Skin: Anterior wound area covered with wound VAC at this time. Belly is soft, diffusely tender to moderate palpation Psych: Affect is improved today Diagnostic Studies Completed and Pending Studies Labs on day of discharge: 05/05/24 05:35: Corrected WBC 9.3, Uncorrected WBC Count 9.3, RBC 3.18 L, Hgb 9.4 L, Hct 27.6 L, MCV 86.8, MCH 29.5, MCHC 34.0, RDW 15.6 H, Plt Count 280, MPV7.9, Neut % (Auto) 77.1, Lymph % (Auto) 7.7, [place] % (Auto) 9.8, Eos % (Auto) 5.0, Baso % (Auto) 0.4, Nucleat RBC Rel Count 0.0, Neut # (Auto) 7.1, Lymph # (Auto) 0.7 L, [place] # (Auto) 0.9 H, Eos # (Auto) 0.5 H, Baso # (Auto) 0.0, PHA Creatinine Clear 39.69, Sodium 138, Potassium 3.9, Chloride 108 H, Carbon Dioxide 25.4, Anion Gap 8.5, BUN 18, Creatinine 1.08, Est GFR (CKD-EPI) 49.715, Glucose 83, Calcium 7.9 L Documented By: Dereje Gil MD 5 [id number] Signed By: <Electronically signed by Dereje Gil MD> 05/05/24 1220 [facility] Work Phone: 1(969) 573-505903-06-2025 Evaluation note* Diagnosis Onset Date Resolution Status Admit Date Flu-like symptoms acute April 132024 2:36pm Recurrent UTI acute April 13, 2024 2:36pm Arterial vascular disease acute April 28, 2024 1:25pm Bowel obstruction acute April 092024 1:25pm Chronic colitis acute April 1:25pm Hyperlipidemia acute April 1:25pm Hypertension acute April 28, 2024 1:25pm Post-operative pain acute April 28, 2024 1:25pm Status post small bowel resection ac eleuterio April 28, 2024 1:25pm Bowel obstruction acute May 092024 1:33pm History of peptic ulcer disease acut e May 22, 2024 1:33pm Microscopic colitis acute May 22, 2024 1:33pm Recurrent UTI acute May 25, 2024 2:35pm [facility] Work Phone: [phone]) 774-982302-13-2025 Miscellaneous Notes* Telephone Encounter - Margo Milton - 03/23/2024 3:49 PM EST Kiana with office is calling to see if the patient needs to continue to take Xarelto since the patient is moving around well and at a lower risk for a DVT or if she needs to continue as a routine pos top med for 6 months. Kiana can be reached at [phone] Thank you. * Telephone Encounter - Sravanthi Vieira LPN - 03/23/2024 3:49 PM EST Forwarding message to provider. * Telephone Encounter - Marj Kelly - 03/23/2024 3:49 PM EST Spoke directly with Dr Kirkland, patient can stop Xeralto since his iliac stent & bypass was in December. Patient to continue asp & Plavix I called Dr Mcmahon's office and spoke to Tammy to give her the update. [facility] Telephone encounter Note* Telephone Encounter - Margo Milton - 03/23/2024 3:49 PM EST Kiana with office is calling to see if the patient needs to continue to take Xarelto since the patient is moving around well and at a lower risk for a DVT or if she needs to continue as a routine pos top med for 6 months. Kiana can be reached at [phone] Thank you. [facility] [employer] [id number] Telephone encounter Note* Telephone Encounter - Sravanthi Vieira LPN - 03/23/2024 3:49 PM EST Forwarding message to provider. [employer]02-13-2025 Telephone encounter Note* Telephone Encounter - Marj Kelly - 03/23/2024 3:49 PM EST Spoke directly with Dr Kirkland, patient can stop Xeralto since his iliac stent & bypass was in December. Patient to continue asp & Plavix I called Dr Mcmahon's office and spoke to Tammy to give her the update. [facility]02-13-2025 Evaluation note* Diagnosis Onset Date Resolution Status Admit Date Arterial vascular disease acute March 23, 2024 1:46pm Hyperlipidemia acute March 112024 1:46pm Hypertension acute March 1:46pm Flu-like symptoms acute April 132024 2:36pm Recurrent UTI acute April 13, 2024 2:36pm Arterial vascular disease acute April 28, 2024 1:25pm Bowel obstruction acute April 092024 1:25pm Chronic colitis acute April 1:25pm Hyperlipidemia acute April 1:25pm Hypertension acute April 28, 2024 1:25pm Post-operative pain acute April 28, 2024 1:25pm Status post small bowel resection acute April 28, 2024 1:25pm Bowel obstruction acute May 092024 1:33pm [facility] Work Phone: [phone]) 859-453301-23-2025 [facility] Chief Complaint: Follow up HPI: Sage Hsu is a 88 y.o. female With [...] 71%. 3 times da (more content not included)...[facility]01-20-2025 History of Present illness Narrative* Wily Ingram NP - 02/28/2024 2:45 PM ESTAssociated Order(s): L Inj/Asp: L knee Post-Procedure Diagnose(s): Primary osteoarthritis of left knee Images from the original note were not included. HISTORY OF PRESENT ILLNESS: Sage Hsu is an 88 y.o. @ female. [...] TAKING TYL, GABAPENTIN, TR[facility]OL. [facility] WH[facility] RECOVERING FROM VASCULAR SURGERY [...] the patellofemoral joint. Subchondral sclerosis was noted atthe medial joint line surfaces as well as the patellofemoral joint. Marginal osteophytic formation was noted medially on poles of patella. There is no evidence of fracture or dislocation. 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 ASSESSMENT: ICD-10-CM 1. Primary osteoarthritis of left [...] an injection. I advised the patient of risksassociated with an injection including a reaction to [...] new symptoms develop for requiring urgent evaluation. 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 Risk factors modification.Continue wound care. 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 Risk factors modification.Continue wound care. * Assessment & Plan Note - Derrek Kirkland MD - 02/24/2024 12:07 PM EST Associated Problem(s): Critical limb ischemia of left lower extremity with rest pain (CMS-HCC) We will address the left lower extremity if she continues to have pain after the wound heals on theright side. For now she feels like the pain is tolerable she will see me sooner if it is not documented in this encounterUniversity Hospitals [facility]01-16-2025 Evaluation + Plan note* Assessment & Plan Note - Derrek Kirkland MD - 02/24/2024 12:07 PM EST Associated Problem(s): Critical limb ischemia of left lower extremity with rest pain (CMS-HCC) We will address the left lower extremity if she continues to have pain after the wound heals on theright side. For now she feels like the pain is tolerable she will see me sooner if it is not [facility]01-16-2025 History of Present illness Narrative* Derrek Kirkland MD - 02/24/2024 11:20 AM EST Images from the original note were not included. To: GYPSY MCMAHON MD HPI: Sage Hsu is a 88 y.o. female 88-year-old [...] for the wound to the right side toheal and then reassess. We will see her [...] Critical limb ischemia of right lower extremity ([facility]) Dental disease UPPER AND LOWER DENTURE DIAZ (dyspnea on exertion) Fractures 2018 LEFT HIP GERD (gastroesophageal reflux disease) HL (hearing loss) Hyperlipidemia Hypertension Microscopic colitis PAD (peripheral artery disease) ([facility]) Peptic ulceration BLEEDING ULCER ADMITTED 2018 X13 DAYS ZARA Rash Skin cancer REMOVED Sleep apnea No CPAP Thin skin Urinary tract infection CHRONIC, SEES ID EVERY 3 MONTHS Visual impairment Wound of ankle RIGHT SINCE 07/2023 Past Surgical History: Past Surgical History: Procedure Laterality Date ABDOMINAL SURGERY ANGIOGRAM EXTREMITY LOWER Right 01/01/2024 Performed by Derrek Kirkland MD at [facility] SPECIAL PROC ANGIOPLASTY ILIAC STENT PLACEMENT Right 01/01/2024 Performed by Derrek Kirkland MD at [facility] SPECIAL PROC ANGIOPLASTY ILIAC-ILIAC SHOCKWAVE INTRAVASCULAR LITHOTRIPSY Right 11/18/2023 Performed by Derrek Kirkland MD at [facility] SPECIAL PROC ARTHROSCOPY SHOULDER W/ OPEN ROTATOR CUFF REPAIR Left 2011 BOVINE PATCH ANGIOPLASTY CUTDOWN FEMORAL Right 01/01/2024 Performed by Derrek Kirkland MD at [facility] SPECIAL PROC BOVINE PATCH ANGIOPLASTY ILEOFEMORAL Right 01/01/2024 Performed by Derrek Kirkland MD at [facility] SPECIAL PROC BYPASS ARTERY FEMORAL BELOW KNEE POPLITEAL W/ VEIN PATCH/ HIGH GSV LIGATION AND HARVEST Right 01/01/2024 Performed by Derrek Kirkland MD at [facility] SPECIAL PROC CARDIAC SURGERY CATARACT EXTRACTION CHOLECYSTECTOMY N/A 2008 CORONARY ARTERY BYPASS GRAFT 1998 x 5 ENDARTERECTOMY FEMORAL AND ILIOFEMORAL ENDARTERECTOMY Right 01/01/2024 Performed by Derrek Kirkland MD at [facility] SPECIAL PROC EYE SURGERY HERNIA REPAIR N/A 03/2012 HIP FRACTURE SURGERY Left 05/2017 HYSTERECTOMY N/A JOINT REPLACEMENT lower ext angiogram Bilateral 01/07/2022 Performed by Taryn Belle MD at [facility] CARDIAC CATH LABS SCLEROTHERAPY LOWER EXTREMITY Right 12/24/2023 Performed by Derrek Kirkland MD at [facility] ARTHROPLASTY Left 2019 VASCULAR [...] have pain after the wound heals on theright side. For now she feels like the pain is tolerable she will see me sooner if it is not Sage was seen today for art doppler lwr bilat mult lev/pvr completed on 12/21/23. 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 documented in this [facility]01-13-2025 Evaluation note* Diagnosis Onset Date Resolution Status Admit Date Microscopic colitis acute 2024 1:24pm [facility] Work Phone: 1(819) 984-277901-13-2025 Evaluation note* Diagnosis Onset Date Resolution Status Admit Date Microscopic colitis acute 2024 1:24pm Arterial vascular disease acute March 23, 2024 1:46pm Hyperlipidemia acute March 112024 1:46pm Hypertension acute March 1:46pm [facility] Work Phone: 1(551) 681-453101-13-2025 Evaluation note* Diagnosis Onset Date Resolution Status Admit Date Microscopic colitis acute 2024 1:24pm Arterial vascular disease acute March 23, 2024 1:46pm Hyperlipidemia acute March 112024 1:46pm Hypertension acute March 1:46pm Recurrent UTI acute April 13, 2024 2:36pm [facility] Work Phone: 1(888) 379-363901-13-2025 Evaluation note* Diagnosis Onset Date Resolution Status Admit Date Microscopic colitis acute 2024 1:24pm Arterial vascular disease acute March 23, 2024 1:46pm Hyperlipidemia acute March 112024 1:46pm Hypertension acute March 1:46pm Flu-like symptoms acute April 132024 2:36pm Recurrent UTI acute April 13, 2024 2:36pm [facility] Work Phone: 1(140) 859-181601-13-2025 Evaluation note* Diagnosis Onset Date Resolution Status Admit Date Microscopic colitis acute 2024 1:24pm Arterial vascular disease acute March 23, 2024 1:46pm Hyperlipidemia acute March 112024 1:46pm Hypertension acute March 1:46pm Flu-like symptoms acute April 132024 2:36pm Recurrent UTI acute April 13, 2024 2:36pm Arterial vascular disease acute April 28, 2024 1:25pm Bowel obstruction acute April 092024 1:25pm Chronic colitis acute April 1:25pm Hyperlipidemia acute April 1:25pm Hypertension acute April 28, 2024 1:25pm Post-operative pain acute April 28, 2024 1:25pm Status post small bowel resection acute April 28, 2024 1:25pm [facility] Work Phone: 1(421) 100-192112-12-2024 History of Present illness Narrative* Derrek Kirkland MD - 01/20/2024 10:10 AM EST VASCULAR SURGERY NOTE HPI Sage Hsu is a 88 y.o. female comes [...] diagnoses linked to this encounter. Plan Plan Sage Hsu will call with any changes or worsening of symptoms. Follow up in a month with PVR and duplex ultrasound. Also I advised on moravian in the strict follow up [facility] for management of right foot and leg wounds.. documented in this encounterUniversity Hospitals [facility]11-29-2024 Nurse Note* Eleanor Soto RN - 01/07/2024 5:26 PM EST Report called to Luli Benítez. Name and number provided for any further questions. [facility]11-29-2024 Nurse Note* Eleanor Soto RN - 01/07/2024 5:26 PM EST Report called to Luli Benítez. Name and number provided for any further questions. documented in this encounterUniversity Hospitals Samar[facility] Center11-29-2024 Hospital course Narrative* Aroldo Yancey Grant, RIVETING MACHINE OPERATOR AUTOMATIC-POLE SHAVER HELPER - 01/07/2024 1:30 PM EST HOSPITAL DISCHARGE SUMMARY Patient ID: Sage Hsu Acct: [id number] Patient's PCP: GYPSY MCMAHON MD Admit Date: 01/01/2024 Discharge Date: Length of Stay: 6 Days Admitting Physician: Derrek Kirkland MD Discharge Physician: Derrek Kirkland MD Discharge Diagnoses: Patient Active Problem List Diagnosis Date Noted Encounter for therapeutic drug monitoring 12/15/2023 Venous ulcer of ankle, right ([facility]) 12/09/2023 Chronic ulcer of lower extremity ([facility]) 11/18/2023 Non-pressure chronic ulcer of right lower leg, limited to breakdown of skin ([facility]) 11/18/2023 Chronic ulcer of right heel ([facility]) 11/18/2023 Gastroesophageal reflux disease 11/18/2023 Immunocompromised state ([facility]) 11/18/2023 Ingrown nail 11/18/2023 Non-pressure chronic ulcer of calf with fat layer exposed ([facility]) 11/18/2023 Peripheral vascular disease ([facility]) 11/18/2023 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 ([facility]) 11/18/2023 Critical limb ischemia of both lower extremities with rest pain ([facility]) 11/18/2023 Anemia 11/09/2023 C. 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 ([facility]) 10/14/2023 Venous ulcer of right leg ([facility]) 10/14/2023 Venous insufficiency (chronic) (peripheral) 11/11/2022 Arteriosclerosis of coronary artery 11/02/2022 Arthritis of right knee 11/02/2022 Internal derangement of right knee 11/02/2022 Complete tear of right rotator cuff 11/02/2022 Essential hypertension 11/02/2022 Hip bursitis, left 11/02/2022 Primary osteoarthritis of left hip 11/02/2022 Other abnormalities of gait and mobility 11/02/2022 Osteoarthritis of hip 06/30/2022 PAD (peripheral artery disease) ([facility]) 01/06/2022 Closed fracture of neck of femur ([facility]) 06/07/2017 Past Medical History: Diagnosis Date Anesthesia complication 2018 HAD HALLUCINATIONS FOR A FEW DAYS AFTER HIP SURGERY Arrhythmia Arthritis C. difficile diarrhea 12/2022 HOSPITALIZED, 01/2023 Cataract Cholecystitis Chronic kidney disease Colitis Coronary artery disease Critical limb ischemia of right lower extremity ([facility]) Dental disease UPPER AND LOWER DENTURE DIAZ (dyspnea on exertion) Fractures 2018 LEFT HIP GERD (gastroesophageal reflux disease) HL (hearing loss) Hyperlipidemia Hypertension Microscopic colitis PAD (peripheral artery disease) ([facility]) Peptic ulceration BLEEDING ULCER ADMITTED 2018 X13 DAYS ZARA Rash Skin cancer REMOVED Sleep apnea No [...] Code Status Prior Summary of Hospital Course: Sage Hsu is a 88 y.o. female who [...] [facility] They recommended oral Keflex until 01/10/2024. She will continue daily dressing changes to her open right lower extremity wound with ascitic acid soaked gauze wrapped with Kerlix and Mckinley. She will also continue Adaptic wrapped with Kerlix and Mckinley on her right medial thigh. She will start taking Xarelto 2.5 mg. Patient was accepted at [facility]. Transported set up today for 5:00 p.m. [...] dislocation. Impression: Unremarkable left total hip arthroplasty. Wily Ingram APRN-LIS Treatments: As noted above Disposition: Discharge to [facility] Discharge Condition: good. Discharge Instructions: Take all medications as prescribed, keep all follow-up appointments Follow Up: cheduled Outpatient Follow Up: Future Appointments Date Time Provider Department Center 01/20/2024 10:10 AM MD VANESSA Frost [facility] 06/29/2024 10:20 AM MD VANESSA Frost [facility] Follow-up Information ELOINA YARBROUGH MD Follow up. Specialty: Urology Contact information: [address] [facility] [address] GYPSY MCMAHON MD . Specialty: Family Medicine Contact information: [address] [facility] [address] Scheduled Appointments Jan 20, 2024 10:10 AM (Arrive by 9:55 AM) POST OPERATION VISIT with MD Madeline Frost [facility] Vascular Surgery ([facility]) [address] [place] [phone] At the time of your visit please be aware of the following COVID-19 information: If you develop a new cough, fever, or shortness of breath, please call before your appointment. Please plan to arrive at least 15 minutes earlier than your appointment time as screening and registration may take longer than anticipated. Please consider the Ampl[employer]eeck-in to pre-register and make your co-payment before your visit. This will reduce your registration time. Please be aware that [facility] you are [facility] may require you [...] AM) ESTABLISHED PATIENT with MD Madeline Frost Vascular Surgery ([facility]) [address] [place] [phone] At the time of your visit please be aware of the following COVID-19 information: If you develop a new cough, fever, or shortness of breath, please call before your appointment. Please plan to arrive at least 15 minutes earlier than your appointment time as screening and registration may take longer than anticipated. Please consider the Amplimmuneeck-in to pre-register and make your co-payment before your visit. This will reduce your registration time. Please be aware that the [facility] are [facility] may require you [...] Your Medications These medications were sent to [facility] - [place], [place] - [address] [address] [facility] [address] acetic acid 0.25 % irrigation CEPHalexin 500 [...] XAVIER Brown 01/07/24 1341 documented in this encounterUniversity Hospitals [facility]11-29-2024 Plan of care note * Plan of Care - Eleanor Soto RN - 01/07/2024 1:00 PM EST Problem: Pain Goal: Patient goal is pain score less than 4, able to rest, and participant in treatment plan as appropriate Description: INTERVENTIONS: 1. Encourage patient or legal authorization representative to report early pain and ask [...] per policy 9. Teach patient or legal authorization representative interventions for comforting Outcome: Progressing Note: [...] at the bedside 7. Instruct patient/ patient authorization representative about use of safety devices 8. Include patient/ patient authorization representative in decisions related to safety Outcome: [...] hygiene technique 7. Identify and instruct patient/patient authorization representative in use of appropriate isolation precautionsfor identified infection/symptoms 8. Provide and discuss with patient/patient authorization representative on educational MDRO sheet 9. Encourage and monitor nutritional status daily and consult template layout worker if indicated 10. Implement neutropenic guidelines as needed 11. Review exposure to history of communicable disease and recent travel history on admission 12. Encourage annual influenza vaccine 13. Encourage pneumonia vaccine Outcome: Progressing Note: Evaluation of progress towards goal: Patient afebrile. Hand hygiene encouraged. WBC WNL. OralKeflex. Will continue to monitor. Problem: Knowledge Deficit Goal: Patient/patient authorization representative demonstrates understanding of disease process, treatment [...] supplement as ordered 13. Collaborate with clinical template layout worker 14. Include patient/ patient's authorization representative in decisions related to nutrition Outcome: [...] Score of =/> 25 or indicated by [facility] Rehab Assessment Goal: Patient should be free from fall Description: Interventions: 1. [place] to environment 2. Hourly rounds addressing the [...] non-skid footwear 11. Teach patient and patient authorization representative to maintain environment for safety and [...] (cane, walker) within reach 19. Request patient authorization representative bring adaptive equipment/mobility aids from home or obtain and provide as needed 20. Consult pharmacy regarding effects of med's affecting mobility, cognition, and alternatives 21. Obtain physician order for PT if risk factors associated with mobility are present 22. Obtain physician order for OT as appropriate 23. Utilize diversional activities 24. Educate patient and patient authorization representative how to maintain a safe environment during visitationtimes (notify nurse prior to leaving bedside) 25. Consider appropriateness of medical or non-site medical director 26. Set up voiding schedule as appropriate (every 2 hours) Outcome: Progressing Note: Evaluation of progress towards goal: Patient free of fall. Non-slip socks on. Bed locked and lowest position. 2/4 side rails raised. Call light within reach. Patient alert and oriented. Will continue to monitor. [place] [id number] Miscellaneous Notes* Plan of Care - Eleanor Soto RN - 01/07/2024 1:00 PM EST Problem: Pain Goal: Patient goal is pain score less than 4, able to rest, and participant in treatment plan as appropriate Description: INTERVENTIONS: 1. Encourage patient or legal authorization representative to report early pain and ask [...] per policy 9. Teach patient or legal authorization representative interventions for comforting Outcome: Progressing Note: [...] at the bedside 7. Instruct patient/ patient authorization representative about use of safety devices 8. Include patient/ patient authorization representative in decisions related to safety Outcome: [...] hygiene technique 7. Identify and instruct patient/patient authorization representative in use of appropriate isolation precautionsfor identified infection/symptoms 8. Provide and discuss with patient/patient authorization representative on educational MDRO sheet 9. Encourage and monitor nutritional status daily and consult template layout worker if indicated 10. Implement neutropenic guidelines as needed 11. Review exposure to history of communicable disease and recent travel history on admission 12. Encourage annual influenza vaccine 13. Encourage pneumonia vaccine Outcome: Progressing Note: Evaluation of progress towards goal: Patient afebrile. Hand hygiene encouraged. WBC WNL. OralKeflex. Will continue to monitor. Problem: Knowledge Deficit Goal: Patient/patient authorization representative demonstrates understanding of disease process, treatment [...] supplement as ordered 13. Collaborate with clinical template layout worker 14. Include patient/ patient's authorization representative in decisions related to nutrition Outcome: [...] Score of =/> 25 or indicated by [facility] Assessment Goal: Patient should be free from fall Description: Interventions: 1. Erskine to environment 2. Hourly rounds addressing the [...] non-skid footwear 11. Teach patient and patient authorization representative to maintain environment for safety and [...] (cane, walker) within reach 19. Request patient authorization representative bring adaptive equipment/mobility aids from home or obtain and provide as needed 20. Consult pharmacy regarding effects of med's affecting mobility, cognition, and alternatives 21. Obtain physician order for PT if risk factors associated with mobility are present 22. Obtain physician order for OT as appropriate 23. Utilize diversional activities 24. Educate patient and patient authorization representative how to maintain a safe environment during visitationtimes (notify nurse prior to leaving bedside) 25. Consider appropriateness of medical or non-site medical director 26. Set up voiding schedule as appropriate (every 2 hours) Outcome: Progressing Note: Evaluation of progress towards goal: Patient free of fall. Non-slip socks on. Bed locked and lowest position. 2/4 side rails raised. Call light within reach. Patient alert and oriented. Will continue to monitor. * Discharge Planning Note - Ángela Bailey RN - 01/07/2024 12:59 PM EST DISCHARGE PLANNING NOTE Pre Assembly Wirer met with patient and daughter Joanna at bedside to let them know that [facility] isable to accept today. Joanna stated they [...] PM [facility] completed. Discharge packet complete and in chart slot. - Ángela Bailey RN 01/07/24 2:01 PM * Discharge Planning Note - Luli Moeller - 01/07/2024 12:26 PM EST DISCHARGE PLANNING NOTE BLS transport to [facility] via ptn confirme for 01/06 at 1700. * PT/OT/FAMILY LAW MEDIATOR - Opal Winn PTA - 01/07/2024 11:55 AM EST Physical Therapy Treatment Discharge Recommendations PT Recommendations: Longterm Facility SNF/ECF Comments: Recommending SNF as pt [...] stedy, bed/chair alarm, O2 via NC, beckman Telemetry/Patient Observation Assistant: Yes Oxygen Used: 2LO2 via NC. Other: [...] Patient will perform bed mobility with Modified [place] Dates: Start: 01/02/24 Expected End: 01/08/24 Description: HOB elevated and use of rail as needed Disciplines: PT Outcomes Date/Time User Outcome 01/07/24 1148 Opal Winn PTA Progressing 01/04/24 1142 Fanny Roberts, LYNNE Not Progressing Goal Note filed on 01/07/24 1148 by Opal Winn PTA Evaluation of progress towards goal: Problem: Gait Dates: Start: 01/02/24 Disciplines: PT Goal: Patient will perform gait with Modified [place] Dates: Start: 01/02/24 Expected End: 01/08/24 Description: With__RW__,__100__feet Goal Description: to facilitate household ambulation Disciplines: PT Outcomes Date/Time User Outcome 01/07/24 1148 Opal Winn PTA Progressing 01/04/24 1142 Fanny Roberts PT Not Progressing Goal Note filed on 01/07/24 1148 by Opal Winn PTA Evaluation of progress towards goal: Problem: ROM Dates: Start: 01/02/24 Disciplines: PT Goal: Improve ROM Dates: Start: 01/02/24 Expected End: 01/08/24 Description: Of extremity/ location: R knee to 0-90 degrees To facilitate: improved ability to transfer Disciplines: PT Outcomes Date/Time User Outcome 01/07/24 1148 Opal Winn PTA Progressing 01/04/24 1142 Fanny Roberts PT Not Progressing Goal Note filed on 01/07/24 1148 by Opal Winn PTA Evaluation of progress towards goal: Problem: Standing Balance Dates: Start: 01/02/24 Disciplines: PT Goal: Improve balance to good Dates: Start: 01/02/24 Expected End: 01/08/24 Description: Static with RW Dynamic with RW To promote safety with transfers and gait. Disciplines: PT Outcomes Date/Time User Outcome 01/07/24 1148 Opal Winn PTA Progressing 01/04/24 1142 Fanny Roberts PT Not Progressing Goal Note filed on 01/07/24 1148 by Opal Winn PTA Evaluation of progress towards goal: Problem: Strength Dates: Start: 01/02/24 Disciplines: PT Goal: Improve strength Dates: Start: 01/02/24 Expected End: 01/08/24 Description: Pt will perform x15 reps, AROM, of all prescribed LE exercises to improve strength andfacilitate their ability to transfer and ambulate. Disciplines: PT Outcomes Date/Time User Outcome 01/07/24 1148 Opal Winn PTA Progressing 01/04/24 1142 Fanny Roberts PT Not Progressing Goal Note filed on 01/07/24 1148 by Opal Winn PTA Evaluation of progress towards goal: Problem: Transfers Dates: Start: 01/02/24 Disciplines: PT Goal: Patient will perform transfers with Modified [place] Dates: Start: 01/02/24 Expected End: 01/08/24 Description: Goal Description: Using appropriate technique and hand placement for safety at home Disciplines: PT Outcomes Date/Time User Outcome 01/07/24 1148 Opal Winn PTA Progressing 01/04/24 1142 Fanny Roberts PT Not Progressing Goal Note filed on 01/07/24 1148 by Opal Winn PTA Evaluation of progress towards goal: Physical Therapy Care Plan (Resolved) There are no resolved problems. 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 Encourage patient or legal authorization representative to report early pain and ask [...] per policy 9. Teach patient or legal authorization representative interventions for comforting Outcome: Progressing Note: [...] at the bedside 7. Instruct patient/ patient authorization representative about use of safety devices 8. Include patient/ patient authorization representative in decisions related to safety Outcome: [...] hygiene technique 7. Identify and instruct patient/patient authorization representative in use of appropriate isolation precautionsfor identified infection/symptoms 8. Provide and discuss with patient/patient authorization representative on educational MDRO sheet 9. Encourage and monitor nutritional status daily and consult template layout worker if indicated 10. Implement neutropenic guidelines as needed 11. Review exposure to history of communicable disease and recent travel history on admission 12. Encourage annual influenza vaccine 13. Encourage pneumonia vaccine Outcome: Progressing Note: Evaluation of progress towards goal: Vitals sign wnl. No sign of infection noted. Problem: Knowledge Deficit Goal: Patient/patient authorization representative demonstrates understanding of disease process, treatment plan,medications, and discharge instructions Description: INTERVENTIONS 1. Complete learning assessment and assess knowledge base 2. Provide teaching at level of understanding 3. Provide teaching via preferred learning method(s) Outcome: Progressing Note: Evaluation of progress towards goal: Patient/patient authorization representative demonstrates understanding of disease process, treatment [...] Score of =/> 25 or indicated by [facility] Assessment Goal: Patient should be free from fall Description: Interventions: 1. [place] to environment 2. Hourly rounds addressing the [...] non-skid footwear 11. Teach patient and patient authorization representative to maintain environment for safety and [...] (cane, walker) within reach 19. Request patient authorization representative bring adaptive equipment/mobility aids from home or obtain and provide as needed 20. Consult pharmacy regarding effects of med's affecting mobility, cognition, and alternatives 21. Obtain physician order for PT if risk factors associated with mobility are present 22. Obtain physician order for OT as appropriate 23. Utilize diversional activities 24. Educate patient and patient authorization representative how to maintain a safe environment during visitationtimes (notify nurse prior to leaving bedside) 25. Consider appropriateness of medical or non-site medical director 26. Set up voiding schedule as appropriate [...] Description: INTERVENTIONS: 1. Encourage patient or legal authorization representative to report early pain and ask [...] per policy 9. Teach patient or legal authorization representative interventions for comforting Outcome: Not Progressing [...] at the bedside 7. Instruct patient/ patient authorization representative about use of safety devices 8. Include patient/ patient authorization representative in decisions related to safety Outcome: Progressing Note: Evaluation of progress towards goal: Family member at bedside. Patient educated to use the call light to call for assistance. Hourly rounding completed to meet patient's needs. Problem: Knowledge Deficit Goal: Patient/patient authorization representative demonstrates understanding of disease process, treatment [...] progress towards goal: Patient anticipates d/c to [facility] for rehab therapy. * Plan of Care - Laquita Argueta RN - 01/05/2024 11:47 PM EST Problem: Pain Goal: Patient goal is pain score less than 4, able to rest, and participant in treatment plan as appropriate Description: INTERVENTIONS: 1. Encourage patient or legal authorization representative to report early pain and ask [...] per policy 9. Teach patient or legal authorization representative interventions for comforting Outcome: Progressing Note: [...] at the bedside 7. Instruct patient/ patient authorization representative about use of safety devices 8. Include patient/ patient authorization representative in decisions related to safety Outcome: [...] hygiene technique 7. Identify and instruct patient/patient authorization representative in use of appropriate isolation precautionsfor identified infection/symptoms 8. Provide and discuss with patient/patient authorization representative on educational MDRO sheet 9. Encourage and monitor nutritional status daily and consult template layout worker if indicated 10. Implement neutropenic guidelines as needed 11. Review exposure to history of communicable disease and recent travel history on admission 12. Encourage annual influenza vaccine 13. Encourage pneumonia vaccine Outcome: Progressing Note: Evaluation of progress towards goal: IV antibiotics continues for infection. Tolerating meds.Vitals within normal limits. Problem: Knowledge Deficit Goal: Patient/patient authorization representative demonstrates understanding of disease process, treatment plan,medications, and discharge instructions Description: INTERVENTIONS 1. Complete learning assessment and assess knowledge base 2. Provide teaching at level of understanding 3. Provide teaching via preferred learning method(s) Outcome: Progressing Note: Evaluation of progress towards goal: Patient/patient authorization representative demonstrates understanding of disease process, treatment [...] Score of =/> 25 or indicated by [facility] Assessment Goal: Patient should be free from fall Description: Interventions: 1. E[place]kine to environment 2. Hourly rounds addressing the [...] non-skid footwear 11. Teach patient and patient authorization representative to maintain environment for safety and [...] (cane, walker) within reach 19. Request patient authorization representative bring adaptive equipment/mobility aids from home or obtain and provide as needed 20. Consult pharmacy regarding effects of med's affecting mobility, cognition, and alternatives 21. Obtain physician order for PT if risk factors associated with mobility are present 22. Obtain physician order for OT as appropriate 23. Utilize diversional activities 24. Educate patient and patient authorization representative how to maintain a safe environment during visitationtimes (notify nurse prior to leaving bedside) 25. Consider appropriateness of medical or non-site medical director 26. Set up voiding schedule as appropriate (every 2 hours) Outcome: Progressing Note: Evaluation of progress towards goal: Area free from hazards, patient call light within reach,will continue to monitor patient for risk of falls. * Discharge Planning Note - Juan Branch - 01/05/2024 10:11 AM EST DISCHARGE PLANNING NOTE Clinical Updates Sent to [facility] [place] (P# ; F# ) * Discharge Planning Note - IVAN Coles - 01/05/2024 9:56 AM EST DISCHARGE PLANNING NOTE Task to [facility] to send clinical updates to [facility] [place]. Sw to follow. - IVAN Coles 01/05/24 9:56 AM * Plan of Care - Monie Brown RN - 01/05/2024 7:38 AM EST Problem: Pain Goal: Patient goal is pain score less than 4, able to rest, and participant in treatment plan as appropriate Description: INTERVENTIONS: 1. Encourage patient or legal authorization representative to report early pain and ask [...] per policy 9. Teach patient or legal authorization representative interventions for comforting Outcome: Progressing Note: [...] at the bedside 7. Instruct patient/ patient authorization representative about use of safety devices 8. Include patient/ patient authorization representative in decisions related to safety Outcome: [...] hygiene technique 7. Identify and instruct patient/patient authorization representative in use of appropriate isolation precautionsfor identified infection/symptoms 8. Provide and discuss with patient/patient authorization representative on educational MDRO sheet 9. Encourage and monitor nutritional status daily and consult template layout worker if indicated 10. Implement neutropenic guidelines as needed 11. Review exposure to history of communicable disease and recent travel history on admission 12. Encourage annual influenza vaccine 13. Encourage pneumonia vaccine Outcome: Progressing Note: Evaluation of progress towards goal: Antibiotics started Problem: Knowledge Deficit Goal: Patient/patient authorization representative demonstrates understanding of disease process, treatment [...] Description: INTERVENTIONS: 1. Encourage patient or legal authorization representative to report early pain and ask [...] per policy 9. Teach patient or legal authorization representative interventions for comforting Outcome: Progressing Note: [...] at the bedside 7. Instruct patient/ patient authorization representative about use of safety devices 8. Include patient/ patient authorization representative in decisions related to safety Outcome: [...] hygiene technique 7. Identify and instruct patient/patient authorization representative in use of appropriate isolation precautionsfor identified infection/symptoms 8. Provide and discuss with patient/patient authorization representative on educational MDRO sheet 9. Encourage and monitor nutritional status daily and consult template layout worker if indicated 10. Implement neutropenic guidelines as needed 11. Review exposure to history of communicable disease and recent travel history on admission 12. Encourage annual influenza vaccine 13. Encourage pneumonia vaccine Outcome: Progressing Note: Evaluation of progress towards goal: IV antibiotics continues for infection. Tolerating meds.Vitals within normal limits. Problem: Knowledge Deficit Goal: Patient/patient authorization representative demonstrates understanding of disease process, treatment plan,medications, and discharge instructions Description: INTERVENTIONS 1. Complete learning assessment and assess knowledge base 2. Provide teaching at level of understanding 3. Provide teaching via preferred learning method(s) Outcome: Progressing Note: Evaluation of progress towards goal: Patient/patient authorization representative demonstrates understanding of disease process, treatment [...] Score of =/> 25 or indicated by [facility] Assessment Goal: Patient should be free from fall Description: Interventions: 1. Erskine to environment 2. Hourly rounds addressing the [...] non-skid footwear 11. Teach patient and patient authorization representative to maintain environment for safety and [...] (cane, walker) within reach 19. Request patient authorization representative bring adaptive equipment/mobility aids from home or obtain and provide as needed 20. Consult pharmacy regarding effects of med's affecting mobility, cognition, and alternatives 21. Obtain physician order for PT if risk factors associated with mobility are present 22. Obtain physician order for OT as appropriate 23. Utilize diversional activities 24. Educate patient and patient authorization representative how to maintain a safe environment during visitationtimes (notify nurse prior to leaving bedside) 25. Consider appropriateness of medical or non-site medical director 26. Set up voiding schedule as appropriate [...] Description: INTERVENTIONS: 1. Encourage patient or legal authorization representative to report early pain and ask [...] per policy 9. Teach patient or legal authorization representative interventions for comforting Outcome: Progressing Note: [...] at the bedside 7. Instruct patient/ patient authorization representative about use of safety devices 8. Include patient/ patient authorization representative in decisions related to safety Outcome: Progressing Note: Evaluation of progress towards goal: Assessed patient's risk for falls and implemented fall prevention plan of care per policy. Provided and maintained a safe environment. Pt remains free from falls and injury during this stay. * PT/OT/FAMILY LAW MEDIATOR - Fanny Roberts, PT - 01/04/2024 11:42 AM EST Physical Therapy Treatment Discharge Recommendations PT Recommendations: Longterm Facility SNF/ECF Comments: Continue to recommend SNF. Pt now requiring 2 person assist for bed mobility and transfers with Ana Byrdnilsa. Increased confusion noted. 6 Clicks: Basic [...] belt, Ana Stedy, O2, bed/chair alarm, [place] Telemetry/Patient Observation Assistant: Yes Oxygen Used: 2L via NC Other: [...] seated EOB for safety. Limited ability to heating technician Ana Stedy.) Activity Tolerance Endurance: Tolerates <30 [...] Patient will perform bed mobility with Modified [place] Dates: Start: 01/02/24 Expected End: 01/08/24 Description: HOB elevated and use of rail as needed Disciplines: PT Outcomes Date/Time User Outcome 01/04/24 1142 Fanny Roberts PT Not Progressing Problem: Gait Dates: Start: 01/02/24 Disciplines: PT Goal: Patient will perform gait with Modified [place] Dates: Start: 01/02/24 Expected End: 01/08/24 Description: With__RW__,__100__feet Goal Description: to facilitate household ambulation Disciplines: PT Outcomes Date/Time User Outcome 01/04/24 114[place]nn Fanny Roberts PT Not Progressing Problem: ROM [...] 114Brooklynn Fanny Roberts PT Not Progressing Problem: Strength Dates: Start: 01/02/24 Disciplines: PT Goal: Improve strength Dates: Start: 01/02/24 Expected End: 01/08/24 Description: Pt will perform x15 reps, AROM, of all prescribed LE exercises to improve strength andfacilitate their ability to transfer and ambulate. Disciplines: PT Outcomes Date/Time User Outcome 01/04/24 Tomasa Fanny Roberts PT Not Progressing Problem: Transfers Dates: Start: 01/02/24 Disciplines: PT Goal: Patient will perform transfers with Modified [place] Dates: Start: 01/02/24 Expected End: 01/08/24 Description: Goal Description: Using appropriate technique and hand placement for safety at home Disciplines: PT Outcomes Date/Time User Outcome 01/04/24 1142 Fanny Roberts PT Not Progressing Physical Therapy Care Plan (Resolved) There are no resolved problems. 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 ([facility]) * PT/OT/FAMILY LAW MEDIATOR - Lila Nguyen OTR/L - 01/04/2024 11:38 AM EST Occupational Therapy Evaluation Discharge Recommendations OT Recommendations : Longterm Facility SNF/ECF Comments: Recommending SNF as pt [...] little Scoring Daily Activity Raw Score: 13 [facility] G Code Modifier: CL Therapy Plan [...] Critical limb ischemia of right lower extremity ([facility]) Dental disease UPPER AND LOWER DENTURE DIAZ (dyspnea on exertion) Fractures 2018 LEFT HIP GERD (gastroesophageal reflux disease) HL (hearing loss) Hyperlipidemia Hypertension Microscopic colitis PAD (peripheral artery disease) ([facility]) Peptic ulceration BLEEDING ULCER ADMITTED 2018 X13 DAYS ZARA Rash Skin cancer REMOVED Sleep apnea No CPAP Thin skin Urinary tract infection CHRONIC, SEES ID EVERY 3 MONTHS Visual impairment Wound of ankle RIGHT SINCE 07/2023 Past Surgical History: Procedure Laterality Date ABDOMINAL SURGERY ANGIOGRAM EXTREMITY LOWER Right 01/01/2024 Performed by Derrek Kirkland MD at [facility] SPECIAL PROC ANGIOPLASTY ILIAC STENT PLACEMENT Right 01/01/2024 Performed by Derrek Kirkland MD at [facility] SPECIAL PROC ANGIOPLASTY ILIAC-ILIAC SHOCKWAVE INTRAVASCULAR LITHOTRIPSY Right 11/18/2023 Performed by Derrek Kirkland MD at [facility] SPECIAL PROC ARTHROSCOPY SHOULDER W/ OPEN ROTATOR CUFF REPAIR Left 2011 BOVINE PATCH ANGIOPLASTY CUTDOWN FEMORAL Right 01/01/2024 Performed by Derrek Kirkland MD at [facility] SPECIAL PROC BOVINE PATCH ANGIOPLASTY ILEOFEMORAL Right 01/01/2024 Performed by Derrek Kirkland MD at [facility] SPECIAL PROC BYPASS ARTERY FEMORAL BELOW KNEE POPLITEAL W/ VEIN PATCH/ HIGH GSV LIGATION AND HARVEST Right 01/01/2024 Performed by Derrek Kirkland MD at [facility] SPECIAL PROC CARDIAC SURGERY CATARACT EXTRACTION CHOLECYSTECTOMY N/A 2008 CORONARY ARTERY BYPASS GRAFT 1999 x 5 ENDARTERECTOMY FEMORAL AND ILIOFEMORAL ENDARTERECTOMY Right 01/01/2024 Performed by Derrek Kirkland MD at [facility] SPECIAL PROC EYE SURGERY HERNIA REPAIR N/A 03/2012 HIP FRACTURE SURGERY Left 05/2017 HYSTERECTOMY N/A JOINT REPLACEMENT lower ext angiogram Bilateral 01/07/2022 Performed by Taryn Belle MD at [facility] CARDIAC CATH LABS SCLEROTHERAPY LOWER EXTREMITY Right 12/24/2023 Performed by Derrek Kirkland MD at [facility] TOTAL HIP ARTHROPLASTY Left 2019 VASCULAR SURGERY [...] stedy, bed/chair alarm, O2 via NC, beckman Telemetry/Patient Observation Assistant: Yes Oxygen Used: 2L via NC Other: [...] : 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 Encourage patient or legal authorization representative to report early pain and ask [...] per policy 9. Teach patient or legal authorization representative interventions for comforting Outcome: Progressing Note: [...] at the bedside 7. Instruct patient/ patient authorization representative about use of safety devices 8. Include patient/ patient authorization representative in decisions related to safety Outcome: [...] hygiene technique 7. Identify and instruct patient/patient authorization representative in use of appropriate isolation precautionsfor identified infection/symptoms 8. Provide and discuss with patient/patient authorization representative on educational MDRO sheet 9. Encourage and monitor nutritional status daily and consult template layout worker if indicated 10. Implement neutropenic guidelines as needed 11. Review exposure to history of communicable disease and recent travel history on admission 12. Encourage annual influenza vaccine 13. Encourage pneumonia vaccine Outcome: Progressing Note: Evaluation of progress towards goal: Pt free from s/s of infection. Will continue to monitor. Problem: Knowledge Deficit Goal: Patient/patient authorization representative demonstrates understanding of disease process, treatment [...] is in the independent living portion of [facility] [place] and lives with her son. She states that patient is in agreement with placement and they would like a referrals to [facility] in there retirement, tasked referral to be made and they [...] Yes Patient Goals: Patient/Caregiver Goals Patient/Caregiver Goals: Longterm Care Skilled [place] Care: Skilled Care (Short Term) Goals: Goals Daughter stated: Discharge to SNF and then back to independent living with resumption of home care,. (pt-stated) Evaluation of progress towards goal: * Discharge Planning Note - Sabrina Garduno - 01/03/2024 1:41 PM EST DISCHARGE PLANNING NOTE Referral to [facility] [place] (P# ; F# ) * Discharge Planning Note - IVAN Coles - 01/03/2024 12:06 PM EST DISCHARGE PLANNING NOTE Sw attempted to meet with pt to complete assessment and discuss post acute care needs. Staff currently providing care to pt at bedside. Will follow-up again later. - IVAN Coles 01/03/24 12:09 PM * PT/OT/FAMILY LAW MEDIATOR - CHRISTOS Yao - 01/03/2024 8:44 AM [...] Description: INTERVENTIONS: 1. Encourage patient or legal authorization representative to report early pain and ask [...] per policy 9. Teach patient or legal authorization representative interventions for comforting Outcome: Progressing Note: [...] at the bedside 7. Instruct patient/ patient authorization representative about use of safety devices 8. Include patient/ patient authorization representative in decisions related to safety Outcome: [...] hygiene technique 7. Identify and instruct patient/patient authorization representative in use of appropriate isolation precautionsfor identified infection/symptoms 8. Provide and discuss with patient/patient authorization representative on educational MDRO sheet 9. Encourage and monitor nutritional status daily and consult template layout worker if indicated 10. Implement neutropenic guidelines as [...] Description: INTERVENTIONS: 1. Encourage patient or legal authorization representative to report early pain and ask [...] per policy 9. Teach patient or legal authorization representative interventions for comforting Outcome: Progressing Note: [...] at the bedside 7. Instruct patient/ patient authorization representative about use of safety devices 8. Include patient/ patient authorization representative in decisions related to safety Outcome: [...] hygiene technique 7. Identify and instruct patient/patient authorization representative in use of appropriate isolation precautionsfor identified infection/symptoms 8. Provide and discuss with patient/patient authorization representative on educational MDRO sheet 9. Encourage and monitor nutritional status daily and consult template layout worker if indicated 10. Implement neutropenic guidelines as needed 11. Review exposure to history of communicable disease and recent travel history on admission 12. Encourage annual influenza vaccine 13. Encourage pneumonia vaccine Outcome: Progressing Note: Evaluation of progress towards goal: Pt free from s/s of infection. Will continue to monitor. Problem: Knowledge Deficit Goal: Patient/patient authorization representative demonstrates understanding of disease process, treatment plan,medications, and discharge instructions Description: INTERVENTIONS 1. Complete learning assessment and assess knowledge base 2. Provide teaching at level of understanding 3. Provide teaching via preferred learning method(s) Outcome: Progressing Note: Plan of care reviewed with patient. Questions answered. Will continue to assess. * PT/OT/FAMILY LAW MEDIATOR - Leif Raymond, PT - 01/02/2024 4:56 PM EST Physical Therapy Evaluation Discharge Recommendations PT Recommendations: Longterm Facility SNF/ECF Comments: At this time pt [...] 6 Clicks: Basic Mobility Raw Score: 13 [facility] G Code Modifier: CK Therapy Plan [...] Critical limb ischemia of right lower extremity ([facility]) Dental disease UPPER AND LOWER DENTURE DIAZ (dyspnea on exertion) Fractures 2018 LEFT HIP GERD (gastroesophageal reflux disease) HL (hearing loss) Hyperlipidemia Hypertension Microscopic colitis PAD (peripheral artery disease) ([facility]) Peptic ulceration BLEEDING ULCER ADMITTED 2018 X13 DAYS ZARA Rash Skin cancer REMOVED Sleep apnea No CPAP Thin skin Urinary tract infection CHRONIC, SEES ID EVERY 3 MONTHS Visual impairment Wound of ankle RIGHT SINCE 07/2023 Past Surgical History: Procedure Laterality Date ABDOMINAL SURGERY ANGIOPLASTY ILIAC-ILIAC SHOCKWAVE INTRAVASCULAR LITHOTRIPSY Right 11/18/2023 Performed by Derrek Kirkland MD at [facility] SPECIAL PROC ARTHROSCOPY SHOULDER W/ OPEN ROTATOR CUFF REPAIR Left 2011 CARDIAC SURGERY CATARACT EXTRACTION CHOLECYSTECTOMY N/A 2008 CORONARY ARTERY BYPASS GRAFT 1999 x 5 EYE SURGERY HERNIA REPAIR N/A 03/2012 HIP FRACTURE SURGERY Left 05/2017 HYSTERECTOMY N/A JOINT REPLACEMENT lower ext angiogram Bilateral 01/07/2022 Performed by Taryn Belle MD at [facility] CARDIAC CATH LABS SCLEROTHERAPY LOWER EXTREMITY Right 12/24/2023 Performed by Derrek Kirkland MD at [facility] TOTAL HIP ARTHROPLASTY Left 2019 VASCULAR [...] pole Weight Bearing Status: no formal orders Telemetry/Patient Observation Assistant: Yes Oxygen Used: room air Other: high [...] Patient will perform bed mobility with Modified [place] Dates: Start: 01/02/24 Expected End: 01/08/24 Description: HOB elevated and use of rail as needed Disciplines: PT Problem: Gait Dates: Start: 01/02/24 Disciplines: PT Goal: Patient will perform gait with Modified [place] Dates: Start: 01/02/24 Expected End: 01/08/24 Description: [...] Goal: Patient will perform transfers with Modified [place] Dates: Start: 01/02/24 Expected End: 01/08/24 Description: Goal Description: Using appropriate technique and hand placement for safety at home Disciplines: PT Physical Therapy Care Plan (Resolved) There are no resolved problems. 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 Encourage patient or legal authorization representative to report early pain and ask [...] per policy 9. Teach patient or legal authorization representative interventions for comforting Outcome: Progressing Note: [...] at the bedside 7. Instruct patient/ patient authorization representative about use of safety devices 8. Include patient/ patient authorization representative in decisions related to safety Outcome: [...] hygiene technique 7. Identify and instruct patient/patient authorization representative in use of appropriate isolation precautionsfor identified infection/symptoms 8. Provide and discuss with patient/patient authorization representative on educational MDRO sheet 9. Encourage and monitor nutritional status daily and consult template layout worker if indicated 10. Implement neutropenic guidelines as needed 11. Review exposure to history of communicable disease and recent travel history on admission 12. Encourage annual influenza vaccine 13. Encourage pneumonia vaccine Outcome: Progressing Note: Evaluation of progress towards goal: Monitor labs and vital signs. Patient afebrile at this time. Problem: Knowledge Deficit Goal: Patient/patient authorization representative demonstrates understanding of disease process, treatment [...] reviewed with patient. * Op Note - Derrek Kirkland MD - 01/01/2024 1:53 PM EST Patient Name: Sage Hsu Medical Record: [id number] Date of Operation: 01/02/2024 Preoperative Diagnosis: Right [...] 6. Completion right lower extremity angiogram Surgeon: Derrek Kirkland MD Anesthesia: General anesthesia Estimated Blood [...] loops. I then exposed the popliteal artery [id number]. The angiogram shows that there is constitution [id number]. To my surprise the heavy calcification in [...] sent to the ICU in good condition. Derrek Kirkland MD, QUENTIN, RPVI, FSVS, FACS JOBST Vascular Surgery * Perioperative Nursing Note - Nancy Rubio RN - 12/31/2023 2:29 PM EST Pre adm labs sent to Dr Kirkland [facility] Progress note* Discharge Planning Note - Ángela Bailey RN - 01/07/2024 12:59 PM EST DISCHARGE PLANNING NOTE Pre Assembly Wirer met with patient and daughter Joanna at bedside to let them know that [facility] isable to accept today. Joanna stated they [...] Form/medication reconciliation attached to [facility] for [facility]. HENS completed. Discharge packet complete and in chart slot. - Ángela Bailey RN 01/07/24 2:01 PM [facility]11-29-2024 Progress note* Discharge Planning Note - Luli Moeller - 01/07/2024 12:26 PM EST DISCHARGE PLANNING NOTE BLS transport to [facility] via ptn confirme for 01/06 at 1700. [facility]11-[facility] Progress note* PT/OT/FAMILY LAW MEDIATOR - Opal Winn PTA - 01/07/2024 11:55 AM EST Physical Therapy Treatment Discharge Recommendations PT Recommendations: Longterm Facility SNF/ECF Comments: Recommending SNF as pt [...] stedy, bed/chair alarm, O2 via NC, beckman Telemetry/Patient Observation Assistant: Yes Oxygen Used: 2LO2 via NC. Other: [...] Patient will perform bed mobility with Modified [place] Dates: Start: 01/02/24 Expected End: 01/08/24 Description: HOB elevated and use of rail as needed Disciplines: PT Outcomes Date/Time User Outcome 01/07/24 1148 Opal Winn PTA Progressing 01/04/24 1142 Fanny Roberts, LYNNE Not Progressing Goal Note filed on 01/07/24 1148 by Opal Winn PTA Evaluation of progress towards goal: Problem: Gait Dates: Start: 01/02/24 Disciplines: PT Goal: Patient will perform gait with Modified [place] Dates: Start: 01/02/24 Expected End: 01/08/24 Description: With__RW__,__100__feet Goal Description: to facilitate household ambulation Disciplines: PT Outcomes Date/Time User Outcome 01/07/24 1148 Opal Winn PTA Progressing 01/04/24 1142 Fanny Roberts PT Not Progressing Goal Note filed on 01/07/24 1148 by Opal Winn PTA Evaluation of progress towards goal: Problem: ROM Dates: Start: 01/02/24 Disciplines: PT Goal: Improve ROM Dates: Start: 01/02/24 Expected End: 01/08/24 Description: Of extremity/ location: R knee to 0-90 degrees To facilitate: improved ability to transfer Disciplines: PT Outcomes Date/Time User Outcome 01/07/24 1148 Opal Winn PTA Progressing 01/04/24 1142 Fanny Roberts PT Not Progressing Goal Note filed on 01/07/24 1148 by Opal Winn PTA Evaluation of progress towards goal: Problem: Standing Balance Dates: Start: 01/02/24 Disciplines: PT Goal: Improve balance to good Dates: Start: 01/02/24 Expected End: 01/08/24 Description: Static with RW Dynamic with RW To promote safety with transfers and gait. Disciplines: PT Outcomes Date/Time User Outcome 01/07/24 1148 Opal Winn PTA Progressing 01/04/24 1142 Fanny Roberts PT Not Progressing Goal Note filed on 01/07/24 1148 by Opal Winn PTA Evaluation of progress towards goal: Problem: Strength Dates: Start: 01/02/24 Disciplines: PT Goal: Improve strength Dates: Start: 01/02/24 Expected End: 01/08/24 Description: Pt will perform x15 reps, AROM, of all prescribed LE exercises to improve strength andfacilitate their ability to transfer and ambulate. Disciplines: PT Outcomes Date/Time User Outcome 01/07/24 1148 Opal Winn PTA Progressing 01/04/24 1142 Fanny Roberts PT Not Progressing Goal Note filed on 01/07/24 1148 by Opal Winn PTA Evaluation of progress towards goal: Problem: Transfers Dates: Start: 01/02/24 Disciplines: PT Goal: Patient will perform transfers with Modified [place] Dates: Start: 01/02/24 Expected End: 01/08/24 Description: Goal Description: Using appropriate technique and hand placement for safety at home Disciplines: PT Outcomes Date/Time User Outcome 01/07/24 1148 Opal Winn PTA Progressing 01/04/24 1142 Fanny Roberts PT Not Progressing Goal Note filed on 01/07/24 1148 by Opal Winn PTA Evaluation of progress towards goal: Physical Therapy Care Plan (Resolved) There are no resolved problems. 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 [facility] [employer] [id number] History of Present illness Narrative* Arnie Smith MD - 01/07/2024 10:01 AM EST Images from the original note were not included. Sage Hsu [id number] CONSULTING SERVICE: INFECTIOUS DISEASES REASON FOR [...] Procedure Component Value Units Date/Time Blood Culture [[id number]] Collected: 01/04/24 1218 Specimen: Blood Updated: 01/06/24 1308 Culture NO GROWTH 2 DAYS Blood Culture [[id number]] Collected: 01/04/24 1217 Specimen: Blood Updated: 01/06/24 1308 Culture NO GROWTH 2 DAYS Urine culture [[id number]] (Abnormal) (Susceptibility) Collected: 01/03/24 1405 Specimen: Urine [...] she follows and Infectious Disease doctor at [facility] in [facility]. SUBJECTIVE: Patient reports improvement in symptoms. No nausea vomiting. No new events reported by nursing staff. PHYSICAL EXAMINATION: Seen With NS. GENERAL: Well built, well developed. No distress. Nontoxic. EYES: Jessup conjunctivae. HEENT: No thrush. Neck supple. No [...] Critical limb ischemia of right lower extremity ([facility]) Dental disease UPPER AND LOWER DENTURE DIAZ (dyspnea on exertion) Fractures 2018 LEFT HIP GERD (gastroesophageal reflux disease) HL (hearing loss) Hyperlipidemia Hypertension Microscopic colitis PAD (peripheral artery disease) ([facility]) Peptic ulceration BLEEDING ULCER ADMITTED 2018 X13 DAYS [place] Rash Skin cancer REMOVED Sleep apnea No CPAP Thin skin Urinary tract infection CHRONIC, SEES ID EVERY 3 MONTHS Visual impairment Wound of ankle RIGHT SINCE 07/2023 PAST SURGICAL HISTORY: Past Surgical History: Procedure Laterality Date ABDOMINAL SURGERY ANGIOGRAM EXTREMITY LOWER Right 01/01/2024 Performed by Derrek Kirkland MD at [facility] SPECIAL PROC ANGIOPLASTY ILIAC STENT PLACEMENT Right 01/01/2024 Performed by Derrek Kirkland MD at [facility] SPECIAL PROC ANGIOPLASTY ILIAC-ILIAC SHOCKWAVE INTRAVASCULAR LITHOTRIPSY Right 11/18/2023 Performed by Derrek Kirkland MD at [facility] SPECIAL PROC ARTHROSCOPY SHOULDER W/ OPEN ROTATOR CUFF REPAIR Left 2011 BOVINE PATCH ANGIOPLASTY CUTDOWN FEMORAL Right 01/01/2024 Performed by Derrek Kirkland MD at [facility] SPECIAL PROC BOVINE PATCH ANGIOPLASTY ILEOFEMORAL Right 01/01/2024 Performed by Derrek Kirkland MD at [facility] SPECIAL PROC BYPASS ARTERY FEMORAL BELOW KNEE POPLITEAL W/ VEIN PATCH/ HIGH GSV LIGATION AND HARVEST Right 01/01/2024 Performed by Derrek Kirkland MD at [facility] SPECIAL PROC CARDIAC SURGERY CATARACT EXTRACTION CHOLECYSTECTOMY N/A 2008 CORONARY ARTERY BYPASS GRAFT 1998 x 5 ENDARTERECTOMY FEMORAL AND ILIOFEMORAL ENDARTERECTOMY Right 01/01/2024 Performed by Derrek Kirkland MD at [facility] SPECIAL PROC EYE SURGERY HERNIA REPAIR N/A 03/2012 HIP FRACTURE SURGERY Left 05/2017 HYSTERECTOMY N/A JOINT REPLACEMENT lower ext angiogram Bilateral 01/07/2022 Performed by Taryn Belle MD at [facility] CARDIAC CATH LABS SCLEROTHERAPY LOWER EXTREMITY Right 12/24/2023 Performed by Derrek Kirkland MD at [facility] TOTAL HIP ARTHROPLASTY Left 2019 VASCULAR SURGERY [...] identified and corrected by editing. Signed by, Arnie Smith MD. Answering service: Perfect serve: [phone] * Arnie Smith MD - 01/06/2024 10:40 AM EST Images from the original note were not included. Sage Hsu [id number] 1935 CONSULTING SERVICE: INFECTIOUS DISEASES REASON FOR [...] Procedure Component Value Units Date/Time Blood Culture [[id number]] Collected: 01/04/241217 Specimen: Blood Updated: 01/05/24 130 Culture NO GROWTH 1 DAY Blood Culture [[id number]] Collected: 01/04/241216 Specimen: Blood Updated: 01/05/24 130 Culture NO GROWTH 1 DAY Urine culture [[id number]] (Abnormal) (Susceptibility) Collected: 01/03/24 1405 Specimen: Urine [...] she follows and Infectious Disease doctor at [facility] in [facility]. SUBJECTIVE: Patient reports improvement in symptoms. No nausea vomiting. No new events reported by nursing staff. PHYSICAL EXAMINATION: Seen With NS. GENERAL: Well built, well developed. No distress. Nontoxic. EYES: [place]up conjunctivae. HEENT: No thrush. Neck supple. No [...] Critical limb ischemia of right lower extremity ([facility]) Dental disease UPPER AND LOWER DENTURE DIAZ (dyspnea on exertion) Fractures 2018 LEFT HIP GERD (gastroesophageal reflux disease) HL (hearing loss) Hyperlipidemia Hypertension Microscopic colitis PAD (peripheral artery disease) ([facility]) Peptic ulceration BLEEDING ULCER ADMITTED 2018 X13 DAYS [place] Rash Skin cancer REMOVED Sleep apnea No CPAP Thin skin Urinary tract infection CHRONIC, SEES ID EVERY 3 MONTHS Visual impairment Wound of ankle RIGHT SINCE 07/2023 PAST SURGICAL HISTORY: Past Surgical History: Procedure Laterality Date ABDOMINAL SURGERY ANGIOGRAM EXTREMITY LOWER Right 01/01/2024 Performed by Derrek Kirkland MD at [facility] SPECIAL PROC ANGIOPLASTY ILIAC STENT PLACEMENT Right 01/01/2024 Performed by Derrek Kirkland MD at [facility] SPECIAL PROC ANGIOPLASTY ILIAC-ILIAC SHOCKWAVE INTRAVASCULAR LITHOTRIPSY Right 11/18/2023 Performed by Derrek Kirkland MD at [facility] SPECIAL PROC ARTHROSCOPY SHOULDER W/ OPEN ROTATOR CUFF REPAIR Left 2011 BOVINE PATCH ANGIOPLASTY CUTDOWN FEMORAL Right 01/01/2024 Performed by Derrek Kirkland MD at [facility] SPECIAL PROC BOVINE PATCH ANGIOPLASTY ILEOFEMORAL Right 01/01/2024 Performed by Derrek Kirkland MD at [facility] SPECIAL PROC BYPASS ARTERY FEMORAL BELOW KNEE POPLITEAL W/ VEIN PATCH/ HIGH GSV LIGATION AND HARVEST Right 01/01/2024 Performed by Derrek Kirkland MD at [facility] SPECIAL PROC CARDIAC SURGERY CATARACT EXTRACTION CHOLECYSTECTOMY N/A 2008 CORONARY ARTERY BYPASS GRAFT 1998 x 5 ENDARTERECTOMY FEMORAL AND ILIOFEMORAL ENDARTERECTOMY Right 01/01/2024 Performed by Derrek Kirkland MD at [facility] SPECIAL PROC EYE SURGERY HERNIA REPAIR N/A 03/2012 HIP FRACTURE SURGERY Left 05/2017 HYSTERECTOMY N/A JOINT REPLACEMENT lower ext angiogram Bilateral 01/07/2022 Performed by Taryn Belle MD at [facility] CARDIAC CATH LABS SCLEROTHERAPY LOWER EXTREMITY Right 12/24/2023 Performed by Derrek Kirkland MD at [facility] TOTAL HIP ARTHROPLASTY Left 2019 VASCULAR [...] identified and corrected by editing. Signed by, Arnie Smith MD. Answering service: Perfect serve: [phone] * Gracy Lim MD - 01/05/2024 1:00 [...] C difficile with previous antibiotic treatment, t jarrednithya will follow along for that. Her right lower extremity is gradually healing with slight improvement in its appearance each day. Her pain is much better than it was a few days ago. * Arnie Smith MD - 01/05/2024 10:30 AM EST Images from the original note were not included. Sage Hsu [id number] 1935 CONSULTING SERVICE: INFECTIOUS DISEASES REASON FOR [...] 103 -- 104 106 CO2 mmol/L -- -- 23 21* BUN mg/dL -- 21 -- 31* 22 CREATININE mg/dL -- 1.11* -- 1.32* 0.96 EGFR (CKD-EPI)NON-RACE DEPENDENT ml/min/1.73sq.m -- 48* -- 39* 57* CALCIUM mg/dL -- 8.6 -- 9.0 8.4* MAGNESIUM mg/dL -- -- -- -- 1.3* Cultures: Microbiology Results Procedure Component Value Units Date/Time Blood Culture [[id number]] Collected: 01/04/24 1218 Specimen: Blood Updated: 01/05/24107 Culture NO GROWTH <24 HRS Blood Culture [[id number]] Collected: 01/04/24 1217 Specimen: Blood Updated: 01/05/24 010 Culture NO GROWTH <24 HRS Urine culture [[id number]] (Abnormal) (Susceptibility) Collected: 01/03/24 1405 Specimen: Urine [...] she follows and Infectious Disease doctor at [facility] in [facility]. SUBJECTIVE: Patient reports improvement in symptoms. No nausea vomiting. No new events reported by nursing staff. PHYSICAL EXAMINATION: Seen With NS. GENERAL: Well built, well developed. No distress. Nontoxic. EYES: Jessup conjunctivae. HEENT: No thrush. Neck supple. No [...] Critical limb ischemia of right lower extremity ([facility]) Dental disease UPPER AND LOWER DENTURE DIAZ (dyspnea on exertion) Fractures 2018 LEFT HIP GERD (gastroesophageal reflux disease) HL (hearing loss) Hyperlipidemia Hypertension Microscopic colitis PAD (peripheral artery disease) ([facility]) Peptic ulceration BLEEDING ULCER ADMITTED 2018 X13 DAYS [place] Rash Skin cancer REMOVED Sleep apnea No CPAP Thin skin Urinary tract infection CHRONIC, SEES ID EVERY 3 MONTHS Visual impairment Wound of ankle RIGHT SINCE 07/2023 PAST SURGICAL HISTORY: Past Surgical History: Procedure Laterality Date ABDOMINAL SURGERY ANGIOGRAM EXTREMITY LOWER Right 01/01/2024 Performed by Derrek Kirkland MD at [facility] SPECIAL PROC ANGIOPLASTY ILIAC STENT PLACEMENT Right 01/01/2024 Performed by Derrek Kirkland MD at [facility] SPECIAL PROC ANGIOPLASTY ILIAC-ILIAC SHOCKWAVE INTRAVASCULAR LITHOTRIPSY Right 11/18/2023 Performed by Derrek Kirkland MD at [facility] SPECIAL PROC ARTHROSCOPY SHOULDER W/ OPEN ROTATOR CUFF REPAIR Left 2011 BOVINE PATCH ANGIOPLASTY CUTDOWN FEMORAL Right 01/01/2024 Performed by Derrek Kirkland MD at [facility] SPECIAL PROC BOVINE PATCH ANGIOPLASTY ILEOFEMORAL Right 01/01/2024 Performed by Derrek Kirkland MD at [facility] SPECIAL PROC BYPASS ARTERY FEMORAL BELOW KNEE POPLITEAL W/ VEIN PATCH/ HIGH GSV LIGATION AND HARVEST Right 01/01/2024 Performed by Derrek Kirkland MD at [facility] SPECIAL PROC CARDIAC SURGERY CATARACT EXTRACTION CHOLECYSTECTOMY N/A 2008 CORONARY ARTERY BYPASS GRAFT 1998 x 5 ENDARTERECTOMY FEMORAL AND ILIOFEMORAL ENDARTERECTOMY Right 01/01/2024 Performed by Derrek Kirkland MD at [facility] SPECIAL PROC EYE SURGERY HERNIA REPAIR N/A 03/2012 HIP FRACTURE SURGERY Left 05/2017 HYSTERECTOMY N/A JOINT REPLACEMENT lower ext angiogram Bilateral 01/07/2022 Performed by Taryn Belle MD at [facility] CARDIAC CATH LABS SCLEROTHERAPY LOWER EXTREMITY Right 12/24/2023 Performed by Derrek Kirkland MD at [facility] TOTAL HIP ARTHROPLASTY 2019 VASCULAR SURGERY Angiogram [...] identified and corrected by editing. Signed by, Arnie Smith MD. 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 difficile colitis Chronic ulcer of lower extremity ([facility]) Non-pressure chronic ulcer of right lower leg, limited to breakdown of skin ([facility]) Chronic ulcer of right heel ([facility]) Closed fracture of neck of femur ([facility]) Complete tear of right rotator cuff Diarrhea Essential hypertension Gastroesophageal reflux disease Hip bursitis, left Hypercalcemia Hyperlipidemia Immunocompromised state ([facility]) Ingrown nail 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 ([facility]) 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 Other abnormalities of gait and mobility Recurrent Clostridioides difficile diarrhea Recurrent UTI Urge incontinence Venous insufficiency (chronic) (peripheral) 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) Peripheral vascular disease ([facility]) 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 ([facility] Venous ulcer of right leg ([facility]) Critical limb ischemia of both lower extremities with rest pain ([facility]) Venous ulcer of ankle, right ([facility]) Encounter for therapeutic drug monitoring Past Medical [...] Hypertension Microscopic colitis PAD (peripheral artery disease) ([facility]) Peptic ulceration BLEEDING ULCER ADMITTED 2018 X13 DAYS [facility] Rash Skin cancer REMOVED Sleep apnea No CPAP Thin skin Urinary tract infection CHRONIC, SEES ID EVERY 3 MONTHS Visual impairment Wound of ankle RIGHT SINCE 07/2023 Past Surgical History: Past Surgical History: Procedure Laterality Date ABDOMINAL SURGERY ANGIOGRAM EXTREMITY LOWER Right 01/01/2024 Performed by Derrek Kirkland MD at [facility] SPECIAL PROC ANGIOPLASTY ILIAC STENT PLACEMENT Right 01/01/2024 Performed by Derrek Kirkland MD at [facility] SPECIAL PROC ANGIOPLASTY ILIAC-ILIAC SHOCKWAVE INTRAVASCULAR LITHOTRIPSY Right 11/18/2023 Performed by Drerek Kirkland MD at [facility] SPECIAL PROC ARTHROSCOPY SHOULDER W/ OPEN ROTATOR CUFF REPAIR Left 2011 BOVINE PATCH ANGIOPLASTY CUTDOWN FEMORAL Right 01/01/2024 Performed by Derrek Kirkland MD at [facility] SPECIAL PROC BOVINE PATCH ANGIOPLASTY ILEOFEMORAL Right 01/01/2024 Performed by Derrek Kirkland MD at [facility] SPECIAL PROC BYPASS ARTERY FEMORAL BELOW KNEE POPLITEAL W/ VEIN PATCH/ HIGH GSV LIGATION AND HARVEST Right 01/01/2024 Performed by Derrek Kirkland MD at [facility] SPECIAL PROC CARDIAC SURGERY CATARACT EXTRACTION CHOLECYSTECTOMY N/A 2008 CORONARY ARTERY BYPASS GRAFT 1998 x 5 ENDARTERECTOMY FEMORAL AND ILIOFEMORAL ENDARTERECTOMY Right 01/01/2024 Performed by Derrek Kirkland MD at [facility] SPECIAL PROC EYE SURGERY HERNIA REPAIR N/A 03/2012 HIP FRACTURE SURGERY Left 05/2017 HYSTERECTOMY N/A JOINT REPLACEMENT lower ext angiogram Bilateral 01/07/2022 Performed by Taryn Belle MD at [facility] CARDIAC CATH LABS SCLEROTHERAPY LOWER EXTREMITY Right 12/24/2023 Performed by Derrek Kirkland MD at [facility] TOTAL HIP ARTHROPLASTY Left 2019 VASCULAR [...] found for: VERYLOWLIP No results found for: [id number] No results found for: FOLATE No results [...] 50 mL IVPB-MBP 1,000 mg intravenous Q12H SyedAnwar H MD Luis Stopped at 01/05/24 0520 clopidogreL (PLAVIX) tablet [...] capsule 100 mg 100 mg oral TID Ten La MD 100 mg at 01/05/24 0616 [...] (40 mg/mL premix) 4,000 mg intravenous PRN Konstanitn Stout MD Stopped at 01/02/24 0534 oxyCODONE (ROXICODONE) immediate release tablet 5 mg 5 mg oral Q4H PRN Ten La MD 5 mg at 01/05/24 0620 Or oxyCODONE (ROXICODONE) immediate release tablet 10 mg 10 mg oral Q4H PRN Ten La MD 10 mg at103/04/23 2233 polyethylene glycol (GLYCOLAX) packet 17 g 17 g oral Daily PRN Aroldo Burns APRN-[employer] HELPER potassium chloride (K-TAB,KLOR-CON) CR tablet 20-50 mEq [...] mg oral BID with meals Aroldo Burns APRN-[employer]LE SH[employer]ER HELPER 2.5 mg at 01/05/24 0838 sodium phosphate [...] Skin (per nursing flow sheets): Skin Color: Jessup (01/04/241999) Skin Temp: Warm (01/04/241999) Wound (per [...] Wound 11/18/23 Incision Groin Right-Site Assessment: Painful; Jessup; Fragile (01/04/241999) Wound 01/02/24 Incision Pretibial Proximal;Right-Site [...] (per nursing flow sheets): RUE Edema: +1 (01/04/24739) LUE Edema: +1 (01/04/24739) RLE Edema: Unable to assess (01/04/241999) LLE Edema: +1 (01/04/241999) Intake/ Output Last 24 hrs: Intake/Output Summary (Last 24 hours) at 01/05/2024 0921 Last data filed at 01/05/2024 0559 Gross per 24 hour Intake 275 ml Output 1850 ml Net -1575 ml Food/Nutrition Related History: Diet History: Regular, 4-5 meals per day. Choosing balanced meals. No strong food preferences. 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 Allergies: Allergies Allergen Reactions Nsaids (Non-Steroidal Anti-Inflammatory [...] Diet Intakes: Percent Meals Eaten (%): 50 (01/04/24739) 25-75% intakes per nursing flowsheet (01/01-). Patient [...] Scale, 12/31) Usual Body Weight: 63 kg [place] Body Weight: 68.2 kg Percent [place] Body Weight: 98% Weight Changes: Stable per patient Body Mass Index: Body mass index is 22.4 kg/m . BMI Category: Normal range (18.50- 24.99) Comparative Standards: Estimated Energy Needs: 2448-2072 kcals daily. Method and weight used: 25-30 kcal/kg IBW Estimated Protein Needs: 82-136 grams daily. Method and weight used: 1.2-2 g protein/kg IBW Estimated Fluid Needs: 2664-2533 ml daily. Method weight used: 25-30 ml/kg [...] LD Clinical Dietitian Direct Line: * Aroldo Burns, RIVETING MACHINE OPERATOR AUTOMATIC-POLE SHAVER HELPER - 01/04/2024 1:22 PM EST Images from the original note were not included. Interval History: Sage Mckee Is an 88 y.o. female with [...] 01/03/24 1345 01/03/24 0721 01/03/24 0459 01/02/24 02001/01/24204412/31/23 0937 POTASSIUM mmol/L -- -- -- 5.4* [...] from last 7 days Lab Units 01/03/24 04501/02/2419901/01/24204412/31/23 0937 INR 1.0 1.1 1.2* 1.1 PROTIME [...] Awaiting dispo for sniff placement XAV[facility] [place] Daytime office/After-hours call number: [phone] This note was created with the assistance [...] if she is ready for void trial, [phone] -Discussed with TIFFANIE Longo 01/04/24 0818 Cosigned by Eloina Yarbrough MD at 01/04/2024 12:13 PM EST * Ciro Gaytan RN - 01/03/2024 10:45 PM EST Images from the original note were not included. FOLLOW-UP: Post-Intensive Care Rounding Note Patient: Sage Hsu : 1935 Age: 88 y.o. Length [...] her clinical presentation or stability. Thank you, Ciro Gaytan RN Rapid Response: [facility] * Bonnie Wetzel RN - 01/03/2024 12:35 PM EST Images from the original note were not included. FOLLOW-UP: Post-Intensive Care Rounding Note Patient: Sage Hsu : 1935 Age: 88 y.o. 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 Recorded vital signs are stable and the patient is not noted to be in any apparent distress. Telemetry and monitoring noted. Staff may call with any issues or concerns regarding her clinical presentation or stability. Thank you, BONNIE WETZEL RN Rapid Response: [facility] * Ten La MD - 01/03/2024 10:[address] [facility] [place] Vascular Service Progress Note Patient ID: Sage Hsu, 88 y.o. 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 difficile colitis Chronic ulcer of lower extremity ([facility]) Non-pressure chronic ulcer of right lower leg, limited to breakdown of skin ([facility]) Chronic ulcer of right heel ([facility]) Closed fracture of neck of femur ([facility]) Complete tear of right rotator cuff Diarrhea Essential hypertension Gastroesophageal reflux disease Hip bursitis, left Hypercalcemia Hyperlipidemia Immunocompromised state ([facility]) Ingrown nail 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 ([facility]) 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 Other abnormalities of gait and mobility Recurrent Clostridioides difficile diarrhea Recurrent UTI Urge incontinence Venous insufficiency (chronic) (peripheral) 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 ([facility]) Peripheral vascular disease ([facility]) 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 ([facility]) Venous ulcer of right leg ([facility]) Critical limb ischemia of both lower extremities with rest pain ([facility]) Venous ulcer of ankle, right ([facility]) Encounter for therapeutic drug monitoring OBJECTIVE: Vitals [...] to encourage ambulation, activity, and IS use Ten La MD PGY-1 Vascular Surgery Cosigned by [...] likely a venous stasis ulcer. * Giana Nuenz RN - 01/02/2024 7:42 PM EST Images from the original note were not included. Post-Intensive Care Rounding Note Patient: Sage Hsu : 1935 Age: 88 y.o. 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 No acute changes noted. Staff encouraged to call with any issues, questions or concerns that may arise regarding the patient throughout the shift. Thank you, Jraod Nunez RN Rapid Response: [facility] * Ron Medellin MD - 01/02/2024 9:[address] [facility] [place] Vascular Service Progress Note Patient ID: Sage Hsu, 88 y.o. female Date of Admission: 01/01/2024 10:09 AM MRN; [id number] Referring Physician: Derrek Kirkland MD PCP: GYPSY MCMAHON MD SUBJECTIVE AND INTERVAL HISTORY: Pt seen and examined at bedside. No acute events overnight per pt and nurse. 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 difficile colitis Chronic ulcer of lower extremity ([facility]) Non-pressure chronic ulcer of right lower leg, limited to breakdown of skin ([facility]) Chronic ulcer of right heel ([facility]) Closed fracture of neck of femur ([facility]) Complete tear of right rotator cuff Diarrhea Essential hypertension Gastroesophageal reflux disease Hip bursitis, left Hypercalcemia Hyperlipidemia Immunocompromised state ([facility]) Ingrown nail 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 ([facility]) 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 Other abnormalities of gait and mobility Recurrent Clostridioides difficile diarrhea Recurrent UTI Urge incontinence Venous insufficiency (chronic) (peripheral) 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 ([facility]) Peripheral vascular disease ([facility]) 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 ([facility] Venous ulcer of right leg ([facility]) Critical limb ischemia of both lower extremities with rest pain ([facility]) Venous ulcer of ankle, right ([facility]) Encounter for therapeutic drug monitoring OBJECTIVE: Vitals [...] fellow's findings and plan. [facility] Plan of care note * Plan of Care - Laquita Argueta RN - 01/07/2024 4:19 AM EST Problem: Pain Goal: Patient goal is pain score less than 4, able to rest, and participant in treatment plan as appropriate Description: INTERVENTIONS: 1. Encourage patient or legal authorization representative to report early pain and ask [...] per policy 9. Teach patient or legal authorization representative interventions for comforting Outcome: Progressing Note: [...] at the bedside 7. Instruct patient/ patient authorization representative about use of safety devices 8. Include patient/ patient authorization representative in decisions related to safety Outcome: [...] hygiene technique 7. Identify and instruct patient/patient authorization representative in use of appropriate isolation precautionsfor identified infection/symptoms 8. Provide and discuss with patient/patient authorization representative on educational MDRO sheet 9. Encourage and monitor nutritional status daily and consult template layout worker if indicated 10. Implement neutropenic guidelines as needed 11. Review exposure to history of communicable disease and recent travel history on admission 12. Encourage annual influenza vaccine 13. Encourage pneumonia vaccine Outcome: Progressing Note: Evaluation of progress towards goal: Vitals sign wnl. No sign of infection noted. Problem: Knowledge Deficit Goal: Patient/patient authorization representative demonstrates understanding of disease process, treatment plan,medications, and discharge instructions Description: INTERVENTIONS 1. Complete learning assessment and assess knowledge base 2. Provide teaching at level of understanding 3. Provide teaching via preferred learning method(s) Outcome: Progressing Note: Evaluation of progress towards goal: Patient/patient authorization representative demonstrates understanding of disease process, treatment [...] Score of =/> 25 or indicated by [facility] Assessment Goal: Patient should be free from fall Description: Interventions: 1. [place] to environment 2. Hourly rounds addressing the [...] non-skid footwear 11. Teach patient and patient authorization representative to maintain environment for safety and [...] (cane, walker) within reach 19. Request patient authorization representative bring adaptive equipment/mobility aids from home or obtain and provide as needed 20. Consult pharmacy regarding effects of med's affecting mobility, cognition, and alternatives 21. Obtain physician order for PT if risk factors associated with mobility are present 22. Obtain physician order for OT as appropriate 23. Utilize diversional activities 24. Educate patient and patient authorization representative how to maintain a safe environment during visitationtimes (notify nurse prior to leaving bedside) 25. Consider appropriateness of medical or non-site medical director 26. Set up voiding schedule as appropriate (every 2 hours) Outcome: Progressing Note: Evaluation of progress towards goal: Area free from hazards, patient call light within reach,will continue to monitor patient for risk of falls. [facility]11-28-[facility]24 Plan of care note* Plan of Care - Matilda Wilson RN - 01/06/2024 2:13 PM EST Problem: Pain Goal: Patient goal is pain score less than 4, able to rest, and participant in treatment plan as appropriate Description: INTERVENTIONS: 1. Encourage patient or legal authorization representative to report early pain and ask [...] per policy 9. Teach patient or legal authorization representative interventions for comforting Outcome: Not Progressing [...] at the bedside 7. Instruct patient/ patient authorization representative about use of safety devices 8. Include patient/ patient authorization representative in decisions related to safety Outcome: Progressing Note: Evaluation of progress towards goal: Family member at bedside. Patient educated to use the call light to call for assistance. Hourly rounding completed to meet patient's needs. Problem: Knowledge Deficit Goal: Patient/patient authorization representative demonstrates understanding of disease process, treatment [...] progress towards goal: Patient anticipates d/c to [place] for rehab therapy. [facility] [id number] Plan of care note* Plan of Care - Laquita Argueta RN - 01/05/2024 11:47 PM EST Problem: Pain Goal: Patient goal is pain score less than 4, able to rest, and participant in treatment plan as appropriate Description: INTERVENTIONS: 1. Encourage patient or legal authorization representative to report early pain and ask [...] per policy 9. Teach patient or legal authorization representative interventions for comforting Outcome: Progressing Note: [...] at the bedside 7. Instruct patient/ patient authorization representative about use of safety devices 8. Include patient/ patient authorization representative in decisions related to safety Outcome: [...] hygiene technique 7. Identify and instruct patient/patient authorization representative in use of appropriate isolation precautionsfor identified infection/symptoms 8. Provide and discuss with patient/patient authorization representative on educational MDRO sheet 9. Encourage and monitor nutritional status daily and consult template layout worker if indicated 10. Implement neutropenic guidelines as needed 11. Review exposure to history of communicable disease and recent travel history on admission 12. Encourage annual influenza vaccine 13. Encourage pneumonia vaccine Outcome: Progressing Note: Evaluation of progress towards goal: IV antibiotics continues for infection. Tolerating meds.Vitals within normal limits. Problem: Knowledge Deficit Goal: Patient/patient authorization representative demonstrates understanding of disease process, treatment plan,medications, and discharge instructions Description: INTERVENTIONS 1. Complete learning assessment and assess knowledge base 2. Provide teaching at level of understanding 3. Provide teaching via preferred learning method(s) Outcome: Progressing Note: Evaluation of progress towards goal: Patient/patient authorization representative demonstrates understanding of disease process, treatment [...] be free from fall Description: Interventions: 1. [place] to environment 2. Hourly rounds addressing the [...] non-skid footwear 11. Teach patient and patient authorization representative to maintain environment for safety and [...] (cane, walker) within reach 19. Request patient authorization representative bring adaptive equipment/mobility aids from home or obtain and provide as needed 20. Consult pharmacy regarding effects of med's affecting mobility, cognition, and alternatives 21. Obtain physician order for PT if risk factors associated with mobility are present 22. Obtain physician order for OT as appropriate 23. Utilize diversional activities 24. Educate patient and patient authorization representative how to maintain a safe environment during visitationtimes (notify nurse prior to leaving bedside) 25. Consider appropriateness of medical or non-site medical director 26. Set up voiding schedule as appropriate (every 2 hours) Outcome: Progressing Note: Evaluation of progress towards goal: Area free from hazards, patient call light within reach,will continue to monitor patient for risk of falls. [employer]11-27-2024 Progress note* Discharge Planning Note - Juan Branch - 01/05/2024 10:11 AM EST DISCHARGE PLANNING NOTE Clinical Updates Sent to [facility] [place] (P# ; F# ) [facility] [id number] Progress note* Discharge Planning Note - IVAN Coles - 01/05/2024 9:56 AM EST DISCHARGE PLANNING NOTE Task to [facility] [place] to follow. - IVAN Coles 01/05/24 9:56 AM [employer] [id number] Plan of care note* Plan of Care - Monie Brown RN - 01/05/2024 7:38 AM EST Problem: Pain Goal: Patient goal is pain score less than 4, able to rest, and participant in treatment plan as appropriate Description: INTERVENTIONS: 1. Encourage patient or legal authorization representative to report early pain and ask [...] per policy 9. Teach patient or legal authorization representative interventions for comforting Outcome: Progressing Note: [...] at the bedside 7. Instruct patient/ patient authorization representative about use of safety devices 8. Include patient/ patient authorization representative in decisions related to safety Outcome: [...] hygiene technique 7. Identify and instruct patient/patient authorization representative in use of appropriate isolation precautionsfor identified infection/symptoms 8. Provide and discuss with patient/patient authorization representative on educational MDRO sheet 9. Encourage and monitor nutritional status daily and consult template layout worker if indicated 10. Implement neutropenic guidelines as needed 11. Review exposure to history of communicable disease and recent travel history on admission 12. Encourage annual influenza vaccine 13. Encourage pneumonia vaccine Outcome: Progressing Note: Evaluation of progress towards goal: Antibiotics started Problem: Knowledge Deficit Goal: Patient/patient authorization representative demonstrates understanding of disease process, treatment [...] goal: Reviewed plan of care with patient [facility]11-[facility]24 Plan of care note* Plan of Care - Laquita Argueta RN - 01/05/2024 12:01 AM EST Problem: Pain Goal: Patient goal is pain score less than 4, able to rest, and participant in treatment plan as appropriate Description: INTERVENTIONS: 1. Encourage patient or legal authorization representative to report early pain and ask [...] per policy 9. Teach patient or legal authorization representative interventions for comforting Outcome: Progressing Note: [...] at the bedside 7. Instruct patient/ patient authorization representative about use of safety devices 8. Include patient/ patient authorization representative in decisions related to safety Outcome: [...] hygiene technique 7. Identify and instruct patient/patient authorization representative in use of appropriate isolation precautionsfor identified infection/symptoms 8. Provide and discuss with patient/patient authorization representative on educational MDRO sheet 9. Encourage and monitor nutritional status daily and consult template layout worker if indicated 10. Implement neutropenic guidelines as needed 11. Review exposure to history of communicable disease and recent travel history on admission 12. Encourage annual influenza vaccine 13. Encourage pneumonia vaccine Outcome: Progressing Note: Evaluation of progress towards goal: IV antibiotics continues for infection. Tolerating meds.Vitals within normal limits. Problem: Knowledge Deficit Goal: Patient/patient authorization representative demonstrates understanding of disease process, treatment plan,medications, and discharge instructions Description: INTERVENTIONS 1. Complete learning assessment and assess knowledge base 2. Provide teaching at level of understanding 3. Provide teaching via preferred learning method(s) Outcome: Progressing Note: Evaluation of progress towards goal: Patient/patient authorization representative demonstrates understanding of disease process, treatment [...] Moderate - High Risk Fall Score Description: [place] Fall Score of =/> 25 or indicated by [facility] Assessment Goal: Patient should be free from fall Description: Interventions: 1. [place] to environment 2. Hourly rounds addressing the [...] non-skid footwear 11. Teach patient and patient authorization representative to maintain environment for safety and [...] (cane, walker) within reach 19. Request patient authorization representative bring adaptive equipment/mobility aids from home or obtain and provide as needed 20. Consult pharmacy regarding effects of med's affecting mobility, cognition, and alternatives 21. Obtain physician order for PT if risk factors associated with mobility are present 22. Obtain physician order for OT as appropriate 23. Utilize diversional activities 24. Educate patient and patient authorization representative how to maintain a safe environment during visitationtimes (notify nurse prior to leaving bedside) 25. Consider appropriateness of medical or non-site medical director 26. Set up voiding schedule as appropriate (every 2 hours) Outcome: Progressing Note: Evaluation of progress towards goal: Area free from hazards, patient call light within reach,will continue to monitor patient for risk of falls. [facility] [id number] Plan of care note* Plan of Care - Bhumika Neely RN - 01/04/2024 1:19 PM EST Problem: Pain Goal: Patient goal is pain score less than 4, able to rest, and participant in treatment plan as appropriate Description: INTERVENTIONS: 1. Encourage patient or legal authorization representative to report early pain and ask [...] per policy 9. Teach patient or legal authorization representative interventions for comforting Outcome: Progressing Note: [...] at the bedside 7. Instruct patient/ patient authorization representative about use of safety devices 8. Include patient/ patient authorization representative in decisions related to safety Outcome: Progressing Note: Evaluation of progress towards goal: Assessed patient's risk for falls and implemented fall prevention plan of care per policy. Provided and maintained a safe environment. Pt remains free from falls and injury during this stay. [employer] [id number] Progress note* PT/OT/FAMILY LAW MEDIATOR - Fanny Roberts, PT - 01/04/2024 11:42 AM EST Physical Therapy Treatment Discharge Recommendations PT Recommendations: Longterm Facility SNF/ECF Comments: Continue to recommend SNF. [...] belt, Ana Stedy, O2, bed/chair alarm, [place] Telemetry/Patient Observation Assistant: Yes Oxygen Used: 2L via [place] Other: [...] seated EOB for safety. Limited ability to heating technician Ana Stedy.) Activity Tolerance Endurance: Tolerates <30 [...] Patient will perform bed mobility with Modified [place] Dates: Start: 01/02/24 Expected End: 01/08/24 Description: HOB elevated and use of rail as needed Disciplines: PT Outcomes Date/Time User Outcome 01/04/24 Tomasa Fanny Roberts PT Not Progressing Problem: Gait Dates: Start: 01/02/24 Disciplines: PT Goal: Patient will perform gait with Modified [place] Dates: Start: 01/02/24 Expected End: 01/08/24 Description: With__RW__,__100__feet Goal Description: to facilitate household ambulation Disciplines: PT Outcomes Date/Time User Outcome 01/04/24 Tomasa Fanny Roberts PT Not Progressing Problem: ROM Dates: Start: 01/02/24 Disciplines: PT Goal: Improve ROM Dates: Start: 01/02/24 Expected End: 01/08/24 Description: Of extremity/ location: R knee to 0-90 degrees To facilitate: improved ability to transfer Disciplines: PT Outcomes Date/Time User Outcome 01/04/24 Tomasa Fanny Roberts PT Not Progressing Problem: Standing Balance Dates: Start: 01/02/24 Disciplines: PT Goal: Improve balance to good Dates: Start: 01/02/24 Expected End: 01/08/24 Description: Static with RW Dynamic with RW To promote safety with transfers and gait. Disciplines: PT Outcomes Date/Time User Outcome 01/04/24 114Brooklynn Fanny Roberts PT Not Progressing Problem: Strength Dates: Start: 01/02/24 Disciplines: PT Goal: Improve strength Dates: Start: 01/02/24 Expected End: 01/08/24 Description: Pt will perform x15 reps, AROM, of all prescribed LE exercises to improve strength andfacilitate their ability to transfer and ambulate. Disciplines: PT Outcomes Date/Time User Outcome 01/04/24 Tye2 Fanny Roberts PT Not Progressing Problem: Transfers Dates: Start: 01/02/24 Disciplines: PT Goal: Patient will perform transfers with Modified [place] Dates: Start: 01/02/24 Expected End: 01/08/24 Description: Goal Description: Using appropriate technique and hand placement for safety at home Disciplines: PT Outcomes Date/Time User Outcome 01/04/24 1142 Fanny Roberts PT Not Progressing Physical Therapy Care Plan (Resolved) There are no resolved problems. 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 ([facility]) [employer] Work Phone: 1(325) 754-338711-26-2024 Progress note* PT/OT/FAMILY LAW MEDIATOR - Lila Nguyen OTR/L - 01/04/2024 11:38 AM EST Occupational Therapy Evaluation Discharge Recommendations OT Recommendations : Longterm Facility SNF/ECF Comments: Recommending SNF as pt [...] little Scoring Daily Activity Raw Score: 13 CMS G Code Modifier: CL Therapy Plan Need [...] Critical limb ischemia of right lower extremity ([facility]) Dental disease UPPER AND LOWER DENTURE DIAZ (dyspnea on exertion) Fractures 2018 LEFT HIP GERD (gastroesophageal reflux disease) HL (hearing loss) Hyperlipidemia Hypertension Microscopic colitis PAD (peripheral artery disease) ([facility]) Peptic ulceration BLEEDING ULCER ADMITTED 2018 X13 DAYS ZARA Rash Skin cancer REMOVED Sleep apnea No CPAP Thin skin Urinary tract infection CHRONIC, SEES ID EVERY 3 MONTHS Visual impairment Wound of ankle RIGHT SINCE 07/2023 Past Surgical History: Procedure Laterality Date ABDOMINAL SURGERY ANGIOGRAM EXTREMITY LOWER Right 01/01/2024 Performed by Derrek Kirkland MD at [facility] SPECIAL PROC ANGIOPLASTY ILIAC STENT PLACEMENT Right 01/01/2024 Performed by Derrek Kirkland MD at [facility] SPECIAL PROC ANGIOPLASTY ILIAC-ILIAC SHOCKWAVE INTRAVASCULAR LITHOTRIPSY Right 11/18/2023 Performed by Derrek Kirkland MD at [facility] SPECIAL PROC ARTHROSCOPY SHOULDER W/ OPEN ROTATOR CUFF REPAIR Left 2011 BOVINE PATCH ANGIOPLASTY CUTDOWN FEMORAL Right 01/01/2024 Performed by Derrek Kirkland MD at [facility] SPECIAL PROC BOVINE PATCH ANGIOPLASTY ILEOFEMORAL Right 01/01/2024 Performed by Derrek Kirkland MD at [facility] SPECIAL PROC BYPASS ARTERY FEMORAL BELOW KNEE POPLITEAL W/ VEIN PATCH/ HIGH GSV LIGATION AND HARVEST Right 01/01/2024 Performed by Derrek Kirkland MD at [facility] CARDIAC SURGERY CATARACT EXTRACTION CHOLECYSTECTOMY N/A 2008 CORONARY ARTERY BYPASS GRAFT 1999 x 5 ENDARTERECTOMY FEMORAL AND ILIOFEMORAL ENDARTERECTOMY Right 01/01/2024 Performed by Derrek Kirkland MD at [facility] EYE SURGERY HERNIA REPAIR N/A 03/2012 HIP FRACTURE SURGERY Left 05/2017 HYSTERECTOMY N/A JOINT REPLACEMENT lower ext angiogram Bilateral 01/07/2022 Performed by Taryn Belle MD at [facility] CARDIAC CATH LABS SCLEROTHERAPY LOWER EXTREMITY Right 12/24/2023 Performed by Derrek Kirkland MD at [facility] TOTAL HIP ARTHROPLASTY Left 2019 VASCULAR [...] stedy, bed/chair alarm, O2 via NC, beckman Telemetry/Patient Observation Assistant: Yes Oxygen Used: 2L via NC Other: [...] : 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 Lives With: Son (lives with [...] Goal: Patient will perform grooming with Modified [place] Dates: Start: 01/04/24 Expected End: 02/01/24 Description: [...] ischemia of right lower extremity with gangrene ([facility]) [facility]11-26-2024 Consult note* Letty Minor RPH - 01/04/2024 11:05 AM EST [facility] Department of Pharmacy Pharmacist to Physician Communication The patient will be started on cefepime 1000 mg every 12 hours with a loading dose to be given over30 minutes, followed by a maintenance dose to be given over 4 hours for the treatment of UTI via extended infusion per the [facility] approved renal dosing guidelines, based on an estimated creatinine clearance of 38.6 mL/min. Pharmacy will continue to follow the patient's clinical status closely and makethe necessary dosage adjustments if her renal function changes. Thank you for consulting pharmacy. Letty Minor RPh [facility]11-26-2024 Consult note* Letty Minor RPH - 01/04/2024 11:05 AM EST [facility] Department of Pharmacy Pharmacist to Physician Communication The patient will be started on cefepime 1000 mg every 12 hours with a loading dose to be given over30 minutes, followed by a maintenance dose to be given over 4 hours for the treatment of UTI via extended infusion per the [facility] approved renal dosing guidelines, based on an estimated creatinine clearance of 38.6 mL/min. Pharmacy will continue to follow the patient's clinical status closely and makethe necessary dosage adjustments if her renal function changes. Thank you for consulting pharmacy. Letty Minor RPh * Arnie Smith MD - 01/04/2024 10:17 AM EST Images from the original note were not included. Sage Hsu [id number] 1935 CONSULTING SERVICE: INFECTIOUS DISEASES REASON FOR [...] Procedure Component Value Units Date/Time Urine culture [[id number]] Resulted: 01/03/24 1547 Specimen: Urine Updated: 01/03/24 [...] she follows and Infectious Disease doctor at [facility] in [facility]. SUBJECTIVE: As above. No new events reported by nursing staff. REVIEW OF SYSTEMS: Otherwise unremarkable except for what is noted above PHYSICAL EXAMINATION: Seen With NS. GENERAL: Well built, well developed. No distress. Nontoxic. EYES: Anicteric sclerae. No conjunctival petechiae. [place] conjunctivae. HEENT: Bilateral pinna without any erythema [...] Critical limb ischemia of right lower extremity ([facility]) Dental disease UPPER AND LOWER DENTURE DIAZ (dyspnea on exertion) Fractures 2018 LEFT HIP GERD (gastroesophageal reflux disease) HL (hearing loss) Hyperlipidemia Hypertension Microscopic colitis PAD (peripheral artery disease) ([facility]) Peptic ulceration BLEEDING ULCER ADMITTED 2018 X13 DAYS ZARA Rash Skin cancer REMOVED Sleep apnea No CPAP Thin skin Urinary tract infection CHRONIC, SEES ID EVERY 3 MONTHS Visual impairment Wound of ankle RIGHT SINCE 07/2023 PAST SURGICAL HISTORY: Past Surgical History: Procedure Laterality Date ABDOMINAL SURGERY ANGIOGRAM EXTREMITY LOWER Right 01/01/2024 Performed by Derrek Kirkland MD at [facility] PROC ANGIOPLASTY ILIAC STENT PLACEMENT Right 01/01/2024 Performed by Derrek Kirkland MD at [facility] SPECIAL PROC ANGIOPLASTY ILIAC-ILIAC SHOCKWAVE INTRAVASCULAR LITHOTRIPSY Right 11/18/2023 Performed by Derrek Kirkland MD at [facility] SPECIAL PROC ARTHROSCOPY SHOULDER W/ OPEN ROTATOR CUFF REPAIR Left 2011 BOVINE PATCH ANGIOPLASTY CUTDOWN FEMORAL Right 01/01/2024 Performed by Derrek Kirkland MD at [facility] SPECIAL PROC BOVINE PATCH ANGIOPLASTY ILEOFEMORAL Right 01/01/2024 Performed by Derrek Kirkland MD at [facility] SPECIAL PROC BYPASS ARTERY FEMORAL BELOW KNEE POPLITEAL W/ VEIN PATCH/ HIGH GSV LIGATION AND HARVEST Right 01/01/2024 Performed by Derrek Kirkland MD at [facility] SPECIAL PROC CARDIAC SURGERY CATARACT EXTRACTION CHOLECYSTECTOMY N/A 2008 CORONARY ARTERY BYPASS GRAFT 1999 x 5 ENDARTERECTOMY FEMORAL AND ILIOFEMORAL ENDARTERECTOMY Right 01/01/2024 Performed by Derrek Kirkland MD at [facility] SPECIAL PROC EYE SURGERY HERNIA REPAIR N/A 03/2012 HIP FRACTURE SURGERY Left 05/2017 HYSTERECTOMY N/A JOINT REPLACEMENT lower ext angiogram Bilateral 01/07/2022 Performed by Taryn Belle MD at [facility] CARDIAC CATH LABS SCLEROTHERAPY LOWER EXTREMITY Right 12/24/2023 Performed by Derrek Kirkland MD at [facility] TOTAL HIP ARTHROPLASTY Left 2019 VASCULAR SURGERY [...] identified and corrected by editing. Signed by, Arnie Smith MD. Answering service: Perfect serve: [phone] * Eloina Yarbrough MD - 01/03/2024 12:51 PM ESTAssociated Order(s): IP CONSULT TO UROLOGY Urology Consultation Patient: Sage Hsu Date of : 1935 CHIEF COMPLAINT: [...] is being planned. Patient is seen by [facility], Shaan clifton, history urethral sling in [...] Critical limb ischemia of right lower extremity ([facility]) Dental disease UPPER AND LOWER DENTURE DIAZ (dyspnea on exertion) Fractures 2018 LEFT HIP GERD (gastroesophageal reflux disease) HL (hearing loss) Hyperlipidemia Hypertension Microscopic colitis PAD (peripheral artery disease) ([facility]) Peptic ulceration BLEEDING ULCER ADMITTED 2018 X13 DAYS ZARA Rash Skin cancer REMOVED Sleep apnea No CPAP Thin skin Urinary tract infection CHRONIC, SEES ID EVERY 3 MONTHS Visual impairment Wound of ankle RIGHT SINCE 07/2023 Past Surgical History: Past Surgical History: Procedure Laterality Date ABDOMINAL SURGERY ANGIOGRAM EXTREMITY LOWER Right 01/01/2024 Performed by Derrek Kirkland MD at [facility] SPECIAL PROC ANGIOPLASTY ILIAC STENT PLACEMENT Right 01/01/2024 Performed by Derrek Kirkland MD at [facility] SPECIAL PROC ANGIOPLASTY ILIAC-ILIAC SHOCKWAVE INTRAVASCULAR LITHOTRIPSY Right 11/18/2023 Performed by Derrek Kirkland MD at [facility] SPECIAL PROC ARTHROSCOPY SHOULDER W/ OPEN ROTATOR CUFF REPAIR Left 2011 BOVINE PATCH ANGIOPLASTY CUTDOWN FEMORAL Right 01/01/2024 Performed by Derrek Kirkland MD at [facility] SPECIAL PROC BOVINE PATCH ANGIOPLASTY ILEOFEMORAL Right 01/01/2024 Performed by Derrek Kirkland MD at [facility] SPECIAL PROC BYPASS ARTERY FEMORAL BELOW KNEE POPLITEAL W/ VEIN PATCH/ HIGH GSV LIGATION AND HARVEST Right 01/01/2024 Performed by Derrek Kirkland MD at [facility] SPECIAL PROC CARDIAC SURGERY CATARACT EXTRACTION CHOLECYSTECTOMY N/A 2008 CORONARY ARTERY BYPASS GRAFT 1998 x 5 ENDARTERECTOMY FEMORAL AND ILIOFEMORAL ENDARTERECTOMY Right 01/01/2024 Performed by Derrek Kirkland MD at [facility] SPECIAL PROC EYE SURGERY HERNIA REPAIR N/A 03/2012 HIP FRACTURE SURGERY Left 05/2017 HYSTERECTOMY N/A JOINT REPLACEMENT lower ext angiogram Bilateral 01/07/2022 Performed by Taryn Belle MD at [facility] CARDIAC CATH LABS SCLEROTHERAPY LOWER EXTREMITY Right 12/24/2023 Performed by Derrek Kirkland MD at [facility] TOTAL HIP ARTHROPLASTY Left 2019 VASCULAR [...] 1:04 PM TIFFANIE Omer 01/03/24 1311 I, ELOINA YARBROUGH MD, personally performed the face to face evaluation on this patient. I discussed with the patient and confirmed the accuracy and completeness of the aforementioned history prepared by the [place] practice provider, and I personally performed the clinical examination of the patient. I discussed the treatment plan with the patient. Patient to keep her catheter in place until she is ambulatory of a voiding trial . [facility] Consult note* Arnie Smith MD - 01/04/2024 10:17 AM EST Images from the original note were not included. Sage Hsu [id number] 1935 CONSULTING SERVICE: INFECTIOUS DISEASES REASON FOR [...] Procedure Component Value Units Date/Time Urine culture [[id number]] Resulted: 01/03/24 1547 Specimen: Urine Updated: 01/03/24 [...] she follows and Infectious Disease doctor at [facility] in [facility]. SUBJECTIVE: As above. No new events reported by nursing staff. REVIEW OF SYSTEMS: Otherwise unremarkable except for what is noted above PHYSICAL EXAMINATION: Seen With NS. GENERAL: Well built, well developed. No distress. Nontoxic. EYES: Anicteric sclerae. No conjunctival petechiae. [place] conjunctivae. HEENT: Bilateral pinna without any erythema [...] Critical limb ischemia of right lower extremity ([facility]) Dental disease UPPER AND LOWER DENTURE DIAZ (dyspnea on exertion) Fractures 2018 LEFT HIP GERD (gastroesophageal reflux disease) HL (hearing loss) Hyperlipidemia Hypertension Microscopic colitis PAD (peripheral artery disease) ([facility]) Peptic ulceration BLEEDING ULCER ADMITTED 2018 X13 DAYS ZARA Rash Skin cancer REMOVED Sleep apnea No CPAP Thin skin Urinary tract infection CHRONIC, SEES ID EVERY 3 MONTHS Visual impairment Wound of ankle RIGHT SINCE 07/2023 PAST SURGICAL HISTORY: Past Surgical History: Procedure Laterality Date ABDOMINAL SURGERY ANGIOGRAM EXTREMITY LOWER Right 01/01/2024 Performed by Derrek Kirkland MD at [facility] SPECIAL PROC ANGIOPLASTY ILIAC STENT PLACEMENT Right 01/01/2024 Performed by Derrek Kirkland MD at [facility] SPECIAL PROC ANGIOPLASTY ILIAC-ILIAC SHOCKWAVE INTRAVASCULAR LITHOTRIPSY Right 11/18/2023 Performed by Derrek Kirkland MD at [facility] SPECIAL PROC ARTHROSCOPY SHOULDER W/ OPEN ROTATOR CUFF REPAIR Left 2011 BOVINE PATCH ANGIOPLASTY CUTDOWN FEMORAL Right 01/01/2024 Performed by Derrek Kirkland MD at [facility] SPECIAL PROC BOVINE PATCH ANGIOPLASTY ILEOFEMORAL Right 01/01/2024 Performed by Derrek Kirkland MD at [facility] SPECIAL PROC BYPASS ARTERY FEMORAL BELOW KNEE POPLITEAL W/ VEIN PATCH/ HIGH GSV LIGATION AND HARVEST Right 01/01/2024 Performed by Derrek Kirkland MD at [facility] SPECIAL PROC CARDIAC SURGERY CATARACT EXTRACTION CHOLECYSTECTOMY N/A 2008 CORONARY ARTERY BYPASS GRAFT 1998 x 5 ENDARTERECTOMY FEMORAL AND ILIOFEMORAL ENDARTERECTOMY Right 01/01/2024 Performed by Derrek Kirkland MD at [facility] SPECIAL PROC EYE SURGERY HERNIA REPAIR N/A 03/2012 HIP FRACTURE SURGERY Left 05/2017 HYSTERECTOMY N/A JOINT REPLACEMENT lower ext angiogram Bilateral 01/07/2022 Performed by Taryn eBlle MD at [facility] CARDIAC CATH LABS SCLEROTHERAPY LOWER EXTREMITY Right 12/24/2023 Performed by Derrek Kirkland MD at [facility] TOTAL HIP ARTHROPLASTY Left 2020 VASCULAR [...] identified and corrected by editing. Signed by, Arnie Smith MD. Answering service: Angelo serve: [phone] [facility]11-26-2024 Plan of care note* Plan of Care - Kodak Clark RN - 01/04/2024 12:13 AM EST Problem: Pain Goal: Patient goal is pain score less than 4, able to rest, and participant in treatment plan as appropriate Description: INTERVENTIONS: 1. Encourage patient or legal authorization representative to report early pain and ask [...] per policy 9. Teach patient or legal authorization representative interventions for comforting Outcome: Progressing Note: [...] at the bedside 7. Instruct patient/ patient authorization representative about use of safety devices 8. Include patient/ patient authorization representative in decisions related to safety Outcome: [...] hygiene technique 7. Identify and instruct patient/patient authorization representative in use of appropriate isolation precautionsfor identified infection/symptoms 8. Provide and discuss with patient/patient authorization representative on educational MDRO sheet 9. Encourage and monitor nutritional status daily and consult template layout worker if indicated 10. Implement neutropenic guidelines as needed 11. Review exposure to history of communicable disease and recent travel history on admission 12. Encourage annual influenza vaccine 13. Encourage pneumonia vaccine Outcome: Progressing Note: Evaluation of progress towards goal: Pt free from s/s of infection. Will continue to monitor. Problem: Knowledge Deficit Goal: Patient/patient authorization representative demonstrates understanding of disease process, treatment plan,medications, and discharge instructions Description: INTERVENTIONS 1. Complete learning assessment and assess knowledge base 2. Provide teaching at level of understanding 3. Provide teaching via preferred learning method(s) Outcome: Progressing Note: Plan of care reviewed with patient. Questions answered. Will continue to assess. [facility]11-25-2024 Progress note* Discharge Planning Note - Kelly Badillo RN - 01/03/2024 2:43 PM EST Images from the original note were not included. DISCHARGE PLANNING NOTE Chart reviewed, patient unable to stay awake for interaction. Daughter at bedside and discussed discharge planning with her and PT recs for SNF placement. Daughter states that patient is in the independent living portion of [facility] [place] and lives with her son. She states that patient is in agreement with placement and they would like a referrals to [facility] in there retirement, tasked referral to be made and they [...] Yes Patient Goals: Patient/Caregiver Goals Patient/Caregiver Goals: Longterm Care Skilled [place] Care: Skilled Care (Short Term) Goals: Goals Daughter stated: Discharge to SNF and then back to independent living with resumption of home care,. (pt-stated) Evaluation of progress towards goal: [facility]11-25-2024 Progress note* Discharge Planning Note - Sabrina Garduno - 01/03/2024 1:41 PM EST DISCHARGE PLANNING NOTE Referral to [facility] (P# ; F# ) [facility] Consult note* Eloina Yarbrough MD - 01/03/2024 12:51 PM ESTAssociated Order(s): IP CONSULT TO UROLOGY Urology Consultation Patient: Sage Hsu Date of : 1935 CHIEF COMPLAINT: [...] is being planned. [facility], history urethral sling in 2009, since [...] Hypertension Microscopic colitis PAD (peripheral artery disease) ([facility]) Peptic ulceration BLEEDING ULCER ADMITTED 2018 X13 DAYS ZARA Rash Skin cancer REMOVED Sleep apnea No CPAP Thin skin Urinary tract infection CHRONIC, SEES ID EVERY 3 MONTHS Visual impairment Wound of ankle RIGHT SINCE 07/2023 Past Surgical History: Past Surgical History: Procedure Laterality Date ABDOMINAL SURGERY ANGIOGRAM EXTREMITY LOWER Right 01/01/2024 Performed by Derrek Kirkland MD at [facility] SPECIAL PROC ANGIOPLASTY ILIAC STENT PLACEMENT Right 01/01/2024 Performed by Derrek Kirkland MD at [facility] SPECIAL PROC ANGIOPLASTY ILIAC-ILIAC SHOCKWAVE INTRAVASCULAR LITHOTRIPSY Right 11/18/2023 Performed by Derrek Kirkland MD at [facility] SPECIAL PROC ARTHROSCOPY SHOULDER W/ OPEN ROTATOR CUFF REPAIR Left 2011 BOVINE PATCH ANGIOPLASTY CUTDOWN FEMORAL Right 01/01/2024 Performed by Derrek Kirkland MD at [facility] SPECIAL PROC BOVINE PATCH ANGIOPLASTY ILEOFEMORAL Right 01/01/2024 Performed by Derrek Kirkland MD at [facility] SPECIAL PROC BYPASS ARTERY FEMORAL BELOW KNEE POPLITEAL W/ VEIN PATCH/ HIGH GSV LIGATION AND HARVEST Right 01/01/2024 Performed by Derrek Kirkland MD at [facility] SPECIAL PROC CARDIAC SURGERY CATARACT EXTRACTION CHOLECYSTECTOMY N/A 2008 CORONARY ARTERY BYPASS GRAFT 1998 x 5 ENDARTERECTOMY FEMORAL AND ILIOFEMORAL ENDARTERECTOMY Right 01/01/2024 Performed by Derrek Kirkland MD at [facility] SPECIAL PROC EYE SURGERY HERNIA REPAIR N/A 03/2012 HIP FRACTURE SURGERY Left 05/2017 HYSTERECTOMY N/A JOINT REPLACEMENT lower ext angiogram Bilateral 01/07/2022 Performed by Taryn Belle MD at [facility] CARDIAC CATH LABS SCLEROTHERAPY LOWER EXTREMITY Right 12/24/2023 Performed by Derrek Kirkland MD at [facility] TOTAL HIP ARTHROPLASTY Left 2019 VASCULAR [...] 1:04 PM TIFFANIE Omer 01/03/24 1311 I, ELOINA YARBROUGH MD, personally performed the face to face evaluation on this patient. I discussed with the patient and confirmed the accuracy and completeness of the aforementioned history prepared by the [place] [facility] provider, and I personally performed the clinical examination of the patient. I discussed the treatment plan with the patient. Patient to keep her catheter in place until she is ambulatory of a voiding trial . [facility] Work Phone: 1(543) 466-134611-25-2024 Progress note* Discharge Planning Note - IVAN Coles - 01/03/2024 12:06 PM EST DISCHARGE PLANNING NOTE Sw attempted to meet with pt to complete assessment and discuss post acute care needs. Staff currently providing care to pt at bedside. Will follow-up again later. - IVAN Coles 01/03/24 12:09 PM [facility]11-25-2024 Progress note* PT/OT/FAMILY LAW MEDIATOR - Lila Nguyen OTR/L - 01/03/2024 8:44 AM EST Occupational Therapy OT Type of Visit: Medical deferral (pt with open wounds as she was unable to tolerate dressing paindue to pain. will check back as able.) [facility] Plan of care note* Plan of Care - Bhumika Neely RN - 01/03/2024 8:24 AM EST Problem: Pain Goal: Patient goal is pain score less than 4, able to rest, and participant in treatment plan as appropriate Description: INTERVENTIONS: 1. Encourage patient or legal authorization representative to report early pain and ask [...] per policy 9. Teach patient or legal authorization representative interventions for comforting Outcome: Progressing Note: [...] at the bedside 7. Instruct patient/ patient authorization representative about use of safety devices 8. Include patient/ patient authorization representative in decisions related to safety Outcome: [...] hygiene technique 7. Identify and instruct patient/patient authorization representative in use of appropriate isolation precautionsfor identified infection/symptoms 8. Provide and discuss with patient/patient authorization representative on educational MDRO sheet 9. Encourage and monitor nutritional status daily and consult template layout worker if indicated 10. Implement neutropenic guidelines as needed 11. Review exposure to history of communicable disease and recent travel history on admission 12. Encourage annual influenza vaccine 13. Encourage pneumonia vaccine Outcome: Progressing Note: Evaluation of progress towards goal: Patient remains afebrile, no new s/s of infection at this time. Hand hygiene continued per protocol. Will continue to monitor. [facility]-20[facility] Plan of care note* Plan of Care - Kodak Clark RN - 01/03/2024 1:21 AM EST Problem: Pain Goal: Patient goal is pain score less than 4, able to rest, and participant in treatment plan as appropriate Description: INTERVENTIONS: 1. Encourage patient or legal authorization representative to report early pain and ask [...] per policy 9. Teach patient or legal authorization representative interventions for comforting Outcome: Progressing Note: [...] at the bedside 7. Instruct patient/ patient authorization representative about use of safety devices 8. Include patient/ patient authorization representative in decisions related to safety Outcome: [...] hygiene technique 7. Identify and instruct patient/patient authorization representative in use of appropriate isolation precautionsfor identified infection/symptoms 8. Provide and discuss with patient/patient authorization representative on educational MDRO sheet 9. Encourage and monitor nutritional status daily and consult template layout worker if indicated 10. Implement neutropenic guidelines as needed 11. Review exposure to history of communicable disease and recent travel history on admission 12. Encourage annual influenza vaccine 13. Encourage pneumonia vaccine Outcome: Progressing Note: Evaluation of progress towards goal: Pt free from s/s of infection. Will continue to monitor. Problem: Knowledge Deficit Goal: Patient/patient authorization representative demonstrates understanding of disease process, treatment plan,medications, and discharge instructions Description: INTERVENTIONS 1. Complete learning assessment and assess knowledge base 2. Provide teaching at level of understanding 3. Provide teaching via preferred learning method(s) Outcome: Progressing Note: Plan of care reviewed with patient. Questions answered. Will continue to assess. Telller [id number] Progress note* PT/OT/FAMILY LAW MEDIATOR - Leif Raymond, PT - 01/02/2024 4:56 PM EST Physical Therapy Evaluation Discharge Recommendations PT Recommendations: Longterm Facility SNF/ECF Comments: At this time pt [...] Critical limb ischemia of right lower extremity ([facility]) Dental disease UPPER AND LOWER DENTURE DIAZ (dyspnea on exertion) Fractures 2018 LEFT HIP GERD (gastroesophageal reflux disease) HL (hearing loss) Hyperlipidemia Hypertension Microscopic colitis PAD (peripheral artery disease) ([facility]) Peptic ulceration BLEEDING ULCER ADMITTED 2018 X13 DAYS ZARA Rash Skin cancer REMOVED Sleep apnea No CPAP Thin skin Urinary tract infection CHRONIC, SEES ID EVERY 3 MONTHS Visual impairment Wound of ankle RIGHT SINCE 07/2023 Past Surgical History: Procedure Laterality Date ABDOMINAL SURGERY ANGIOPLASTY ILIAC-ILIAC SHOCKWAVE INTRAVASCULAR LITHOTRIPSY Right 11/18/2023 Performed by Derrek Kirkland MD at [facility] SPECIAL PROC ARTHROSCOPY SHOULDER W/ OPEN ROTATOR CUFF REPAIR Left 2011 CARDIAC SURGERY CATARACT EXTRACTION CHOLECYSTECTOMY N/A 2008 CORONARY ARTERY BYPASS GRAFT 1998 x 5 EYE SURGERY HERNIA REPAIR N/A 03/2012 HIP FRACTURE SURGERY Left 05/2017 HYSTERECTOMY N/A JOINT REPLACEMENT lower ext angiogram Bilateral 01/07/2022 Performed by Taryn Belle MD at [facility] CARDIAC CATH LABS SCLEROTHERAPY LOWER EXTREMITY Right 12/24/2023 Performed by Derrek Kirkland MD at [facility] TOTAL HIP ARTHROPLASTY Left 2019 VASCULAR [...] pole Weight Bearing Status: no formal orders Telemetry/Patient Observation Assistant: Yes Oxygen Used: room air Other: high [...] Patient will perform bed mobility with Modified [place] Dates: Start: 01/02/24 Expected End: 01/08/24 Description: HOB elevated and use of rail as needed Disciplines: PT Problem: Gait Dates: Start: 01/02/24 Disciplines: PT Goal: Patient will perform gait with Modified [place] Dates: Start: 01/02/24 Expected End: 01/08/24 Description: [...] Goal: Patient will perform transfers with Modified [place] Dates: Start: 01/02/24 Expected End: 01/08/24 Description: Goal Description: Using appropriate technique and hand placement for safety at home Disciplines: PT Physical Therapy Care Plan (Resolved) There are no resolved problems. 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 Encourage patient or legal authorization representative to report early pain and ask [...] per policy 9. Teach patient or legal authorization representative interventions for comforting Outcome: Progressing Note: [...] at the bedside 7. Instruct patient/ patient authorization representative about use of safety devices 8. Include patient/ patient authorization representative in decisions related to safety Outcome: [...] hygiene technique 7. Identify and instruct patient/patient authorization representative in use of appropriate isolation precautionsfor identified infection/symptoms 8. Provide and discuss with patient/patient authorization representative on educational MDRO sheet 9. Encourage and monitor nutritional status daily and consult template layout worker if indicated 10. Implement neutropenic guidelines as needed 11. Review exposure to history of communicable disease and recent travel history on admission 12. Encourage annual influenza vaccine 13. Encourage pneumonia vaccine Outcome: Progressing Note: Evaluation of progress towards goal: Monitor labs and vital signs. Patient afebrile at this time. Problem: Knowledge Deficit Goal: Patient/patient authorization representative demonstrates understanding of disease process, treatment [...] Discharge planning and education reviewed with patient. [facility]11-23-2024 Procedure note* Op Note - Derrek Kirkland MD - 01/01/2024 1:53 PM EST Patient Name: Sage Hsu Medical Record: [id number] Date of Operation: 01/02/2024 Preoperative Diagnosis: Right [...] 6. Completion right lower extremity angiogram Surgeon: Derrek Kirkland MD Anesthesia: General anesthesia Estimated Blood [...] loops. I then exposed the popliteal artery [id number]. The angiogram shows that there is constitution [id number]. To my surprise the heavy calcification in [...] sent to the ICU in good condition. Derrek Kirkland MD, QUENTIN, RPVI, FSVS, FACS [facility] Vascular Surgery [facility]11-23-2024 Attending History and physical note* Derrek Kirkland MD - 01/01/2024 12:45 PM EST HISTORY AND PHYSICAL INTERVAL NOTE: Sage Hsu 1935 [id number] H&P reviewed. The patient was examined and there are no changes to the H&P. Derrek Kirkland MD Source Note - Derrek Kirkland MD - 12/30/2023 1:10 PM EST Summary: MITCH with PVR Images from the original note were not included. To: GYPSY MCMAHON MD HPI: Sage Hsu is a 88 y.o. female with [...] loss) Hyperlipidemia Hypertension PAD (peripheral artery disease) ([facility]) Peptic ulceration BLEEDING ULCER ADMITTED 2018 X13 DAYS ZARA Rash Skin cancer REMOVED Sleep apnea no cpap Thin skin Urinary tract infection CHRONIC, SEES ID EVERY 3 MONTHS Visual impairment Wound of ankle RIGHT SINCE 07/2023 Past Surgical History: Past Surgical History: Procedure Laterality Date ABDOMINAL SURGERY ANGIOPLASTY ILIAC-ILIAC SHOCKWAVE INTRAVASCULAR LITHOTRIPSY Right 11/18/2023 Performed by Derrek Kirkland MD at [facility] SPECIAL PROC ARTHROSCOPY SHOULDER W/ OPEN ROTATOR CUFF REPAIR Left 2011 CARDIAC SURGERY CATARACT EXTRACTION CHOLECYSTECTOMY N/A 2008 CORONARY ARTERY BYPASS GRAFT 1998 X5 EYE SURGERY HERNIA REPAIR N/A 03/2012 HIP FRACTURE SURGERY Left 05/2017 HYSTERECTOMY N/A JOINT REPLACEMENT lower ext angiogram Bilateral 01/07/2022 Performed by Taryn Belle MD at [facility] CARDIAC CATH LABS SCLEROTHERAPY LOWER EXTREMITY Right 12/24/2023 Performed by Derrek Kirkland MD at [facility] TOTAL HIP ARTHROPLASTY Left 2020 VASCULAR [...] I will do ligation of her GSV. Sage was seen today for follow-up. 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 While intending to generate a timely document that accurately reflects the content of the visit, no guarantee can be provided that every grammatical or spelling mistake has been or will be identified or corrected. Thank you for your understanding. [facility]11-23-2024 History and physical note* Derrek Kirkland MD - 01/01/2024 12:45 PM EST HISTORY AND PHYSICAL INTERVAL NOTE: Sage Hsu 1935 [id number] H&P reviewed. The patient was examined and there are no changes to the H&P. Derrek Kirkland MD Source Note - Derrek Kirkland MD - 12/30/2023 1:10 PM EST Summary: MITCH with PVR Images from the original note were not included. To: GYPSY MCMAHON MD HPI: Sage Hsu is a 88 y.o. female with [...] loss) Hyperlipidemia Hypertension PAD (peripheral artery disease) ([facility]) Peptic ulceration BLEEDING ULCER ADMITTED 2018 X13 DAYS ZARA Rash Skin cancer REMOVED Sleep apnea no cpap Thin skin Urinary tract infection CHRONIC, SEES ID EVERY 3 MONTHS Visual impairment Wound of ankle RIGHT SINCE 07/2023 Past Surgical History: Past Surgical History: Procedure Laterality Date ABDOMINAL SURGERY ANGIOPLASTY ILIAC-ILIAC SHOCKWAVE INTRAVASCULAR LITHOTRIPSY Right 11/18/2023 Performed by Derrek Kirkland MD at [facility] SPECIAL PROC ARTHROSCOPY SHOULDER W/ OPEN ROTATOR CUFF REPAIR Left 2011 CARDIAC SURGERY CATARACT EXTRACTION CHOLECYSTECTOMY N/A 2009 CORONARY ARTERY BYPASS GRAFT 1998 X5 EYE SURGERY HERNIA REPAIR N/A 03/2012 HIP FRACTURE SURGERY Left 05/2017 HYSTERECTOMY N/A JOINT REPLACEMENT lower ext angiogram Bilateral 01/07/2022 Performed by Taryn Belle MD at [facility] CARDIAC CATH LABS SCLEROTHERAPY LOWER EXTREMITY Right 12/24/2023 Performed by Derrek Kirkland MD at [facility] TOTAL HIP ARTHROPLASTY Left 2019 VASCULAR [...] I will do ligation of her GSV. Sage was seen today for follow-up. 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 While intending to generate a timely document that accurately reflects the content of the visit, no guarantee can be provided that every grammatical or spelling mistake has been or will be identified or corrected. Thank you for your understanding. documented in this encounterUniversity [facility] Nurse Note* Perioperative Nursing Note - Nancy Rubio RN - 12/31/2023 2:29 PM EST Pre adm labs sent to Dr Kirkland [facility]11-22-2024 History and physical note* TIFFANIE Ribera - 12/31/2023 8:30 AM EST PRE-ADMISSION TESTING HISTORY AND PHYSICAL EXAM DATE: 12/31/23 PCP: GYPSY MCMAHON MD CHIEF COMPLAINT: Claudication HISTORY OF PRESENT ILLNESS: Sage F Hsu, a 88 y.o. White or female, presents to [facility] for a pre- surgical H&P. Thepatient reports [...] Critical limb ischemia of right lower extremity ([facility]) Dental disease UPPER AND LOWER DENTURE DIAZ (dyspnea on exertion) Fractures 2018 LEFT HIP GERD (gastroesophageal reflux disease) HL (hearing loss) Hyperlipidemia Hypertension Microscopic colitis PAD (peripheral artery disease) ([facility]) Peptic ulceration BLEEDING ULCER ADMITTED 2018 X13 DAYS ZARA Rash Skin cancer REMOVED Sleep apnea No CPAP Thin skin Urinary tract infection CHRONIC, SEES ID EVERY 3 MONTHS Visual impairment Wound of ankle RIGHT SINCE 07/2023 PAST SURGICAL HISTORY: Past Surgical History: Procedure Laterality Date ABDOMINAL SURGERY ANGIOPLASTY ILIAC-ILIAC SHOCKWAVE INTRAVASCULAR LITHOTRIPSY Right 11/18/2023 Performed by Derrek Kirkland MD at [facility] SPECIAL PROC ARTHROSCOPY SHOULDER W/ OPEN ROTATOR CUFF REPAIR Left 2011 CARDIAC SURGERY CATARACT EXTRACTION CHOLECYSTECTOMY N/A 2008 CORONARY ARTERY BYPASS GRAFT 1998 x 5 EYE SURGERY HERNIA REPAIR N/A 03/2012 HIP FRACTURE SURGERY Left 05/2017 HYSTERECTOMY N/A JOINT REPLACEMENT lower ext angiogram Bilateral 01/07/2022 Performed by Taryn Belle MD at [facility] CARDIAC CATH LABS SCLEROTHERAPY LOWER EXTREMITY Right 12/24/2023 Performed by Derrek Kirkland MD at [facility] TOTAL HIP ARTHROPLASTY Left 2019 VASCULAR [...] Behavior: Behavior normal. PERTINENT TESTING AVAILABLE IN [facility] (WITHIN THE PAST 2 YEARS): EK11/10/2023 [facility]: *Pending cardiology interpretation* Echo: No results [...] the most recent lab values available in [facility] at the time the H&P was signed. *Per department policy, chart managers to follow and report testing. ASSESSMENT / DIAGNOSIS: Right Lower Extremity Ischemia, Arterial Occlusive Disease PLAN: Sage Hsu is scheduled for Endarterectomy Femoral (Iliofemoral Endarterectomy) - Right Angioplasty Iliac - Right Bypass Artery Femoral Popliteal - Right with Dr. Kirkland on 01/01/2024. TIFFANIE Ribera 12/31/23 0955 [facility]11-22-2024 History and physical note* TIFFANIE Ribera - 12/31/2023 8:30 AM EST PRE-ADMISSION TESTING HISTORY AND PHYSICAL EXAM DATE: 12/31/23 PCP: GYPSY MCMAHON MD CHIEF COMPLAINT: Claudication HISTORY OF PRESENT ILLNESS: Sage Hsu, a 88 y.o. White or female, presents to [facility] for a pre- surgical H&P. Thepatient reports [...] Critical limb ischemia of right lower extremity ([facility]) Dental disease UPPER AND LOWER DENTURE DIAZ (dyspnea on exertion) Fractures 2018 LEFT HIP GERD (gastroesophageal reflux disease) HL (hearing loss) Hyperlipidemia Hypertension Microscopic colitis PAD (peripheral artery disease) ([facility]) Peptic ulceration BLEEDING ULCER ADMITTED 2018 X13 DAYS ZARA Rash Skin cancer REMOVED Sleep apnea No CPAP Thin skin Urinary tract infection CHRONIC, SEES ID EVERY 3 MONTHS Visual impairment Wound of ankle RIGHT SINCE 07/2023 PAST SURGICAL HISTORY: Past Surgical History: Procedure Laterality Date ABDOMINAL SURGERY ANGIOPLASTY ILIAC-ILIAC SHOCKWAVE INTRAVASCULAR LITHOTRIPSY Right 11/18/2023 Performed by Derrek Kirkland MD at [facility] SPECIAL PROC ARTHROSCOPY SHOULDER W/ OPEN ROTATOR CUFF REPAIR Left 2011 CARDIAC SURGERY CATARACT EXTRACTION CHOLECYSTECTOMY N/A 2008 CORONARY ARTERY BYPASS GRAFT 1998 x 5 EYE SURGERY HERNIA REPAIR N/A 03/2012 HIP FRACTURE SURGERY Left 05/2017 HYSTERECTOMY N/A JOINT REPLACEMENT lower ext angiogram Bilateral 01/07/2022 Performed by Taryn Belle MD at [facility] CARDIAC CATH LABS SCLEROTHERAPY LOWER EXTREMITY Right 12/24/2023 Performed by Derrek Kirkland MD at [facility] TOTAL HIP ARTHROPLASTY Left 2019 VASCULAR [...] Behavior: Behavior normal. PERTINENT TESTING AVAILABLE IN [facility] (WITHIN THE PAST 2 YEARS): EK11/10/2023 [facility]: *Pending cardiology interpretation* Echo: No results [...] the most recent lab values available in [facility] at the time the H&P was signed. *Per department policy, chart managers to follow and report testing. ASSESSMENT / DIAGNOSIS: Right Lower Extremity Ischemia, Arterial Occlusive Disease PLAN: Sage Hsu is scheduled for Endarterectomy Femoral (Iliofemoral Endarterectomy) - Right Angioplasty Iliac - Right Bypass Artery Femoral Popliteal - Right with Dr. Kirkland on 01/01/2024. TIFFANEI Ribera 12/31/23 0955 documented in this encounterUniversity Hospitals [facility]11-22-[facility]24 Instructions* Patient Instructions* Chaya Monaco RN - 12/31/2023 8:30 AM EST Your surgery/procedure is scheduled at [facility] on 12/31 at 1200 Arrival Time10:00 [facility] Address: [address] [place] [address] Park in [address] Parking lot located on [facility]. Report to the Entrance B. Check in at the information desk the surgery. The waiting room located on the second floor. If you have any questions prior to surgery, please call Pre-Admission Clinic at [phone] between 7:30 am and 4:30 pm Wednesday through Wednesday. If you have questions the morning of surgery, please call the Pre-op Department at [phone]. Notify your SURGEON if you develop any [...] RIGHTS AND RESPONSIBILITIES As a patient at [facility], you have the right to: Receive medical care and be informed of who is taking care of you Be treated with dignity and respect Have a family member/authorization representative of choice and your physician notified of your admission Receive information and actively participate in decisions about your care and treatment Refuse care, treatment and services Decide who may provide your support and speak for you Access moravian and spiritual services Participate in ethical issues [...] of hospital charges and payment methods Patient/patient authorization representative responsibilities are to: Provide information about health status to facilitate care, treatment and services Follow the treatment, plan, keep appointments and speak up when you do not understand the plan Respect the rights of other patients and healthcare personnel Follow organizational rules and regulations that support quality care and a safe environment Fulfill financial obligations as promptly as possible documented in this encounterUniversity Hospitals [facility]ar[facility] Center11-21-2024 Evaluation + Plan note* Assessment & Plan Note - Derrek Kirkland MD - 12/30/2023 1:22 PM EST Associated Problem(s): 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 Sheis scheduled for Wednesday. [facility]11-21-2024 Evaluation + Plan note* Assessment & Plan Note - Derrek Kirkland MD - 12/30/2023 1:22 PM ESTAssociated Problem(s): Venous insufficiency (chronic) (peripheral) I did ultrasound-guided injection sclerotherapy. I discussed with her that she will need a right lower extremity revascularization. I might need to use her vein. If I do not use her vein I will do ligation of her GSV. 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 Sheis scheduled for Wednesday. * Assessment & Plan Note - Derrek Kirkland MD - 12/30/2023 1:22 PM EST Associated Problem(s): Venous insufficiency (chronic) (peripheral) I did ultrasound-guided injection sclerotherapy. I discussed with her that she will need a right lower extremity revascularization. I might need to use her vein. If I do not use her vein I will do ligation of her GSV. documented in this encounterUniversity Hospitals Samaritan Medical Center11-21-2024 History of Present illness Narrative* Derrek Kirkland MD - 12/30/2023 1:10 PM ESTSummary: MITCH with PVR Images from the original note were not included. To: GYPSY MCMAHON MD HPI: Sage Hsu is a 88 y.o. female with [...] loss) Hyperlipidemia Hypertension PAD (peripheral artery disease) ([facility]) Peptic ulceration BLEEDING ULCER ADMITTED 2018 X13 DAYS ZARA Rash Skin cancer REMOVED Sleep apnea no cpap Thin skin Urinary tract infection CHRONIC, SEES ID EVERY 3 MONTHS Visual impairment Wound of ankle RIGHT SINCE 07/2023 Past Surgical History: Past Surgical History: Procedure Laterality Date ABDOMINAL SURGERY ANGIOPLASTY ILIAC-ILIAC SHOCKWAVE INTRAVASCULAR LITHOTRIPSY Right 11/18/2023 Performed by Derrek Kirkland MD at [facility] SPECIAL PROC ARTHROSCOPY SHOULDER W/ OPEN ROTATOR CUFF REPAIR Left 2011 CARDIAC SURGERY CATARACT EXTRACTION CHOLECYSTECTOMY N/A 2008 CORONARY ARTERY BYPASS GRAFT 1998 X5 EYE SURGERY HERNIA REPAIR N/A 03/2012 HIP FRACTURE SURGERY Left 05/2017 HYSTERECTOMY N/A JOINT REPLACEMENT lower ext angiogram Bilateral 01/07/2022 Performed by Taryn Belle MD at [facility] CARDIAC CATH LABS SCLEROTHERAPY LOWER EXTREMITY Right 12/24/2023 Performed by Derrek Kirkland MD at [facility] TOTAL HIP ARTHROPLASTY Left 2019 VASCULAR [...] I will do ligation of her GSV. Sage was seen today for follow-up. 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 documented in this encounterUniversity Hospitals Samaritan Medical Center11-14-2024 Miscellaneous Notes* Perioperative Nursing Note - Bushra Cole RN - 12/23/2023 3:00 PM EST Preoperative Education Checklist- General Surgery date: 12/23/14 Surgery time: 1400 Arrival time: 1200 1. Bring a photo ID and your insurance card with you the day of surgery. You will check in at the main lobby of the [facility]- registration desk is straight ahead as soon as you walk in. Tell them you are here for surgery. 2. If you have a Living Will/Durable Power of Mobile Home Installer for Health Care that is not on [...] after you have bathed. 5. NO nail east tim[place]/acrylic on at least one finger. If you are having a hand, wrist or foot surgery then all nail [place] timorese and artificial/acrylic nails must be removed from [...] WITH YOU ANY DEVICES YOU MAY NEED: KITTY hose, ice machine, sling/swath, brace or special [...] please call the Preadmission Testing office at [phone], Mon.-Fri. 7 a.m.-3 p.m. Leave a voicemail [...] days prior to procedure documented in this encounterUniversity Hospitals Samaritan Medical Center11-14-2024 Nurse Note* Perioperative Nursing Note - Bushra Cole RN - 12/23/2023 3:00 PM EST Preoperative Education Checklist- General Surgery date: 12/23/14 Surgery time: 1400 Arrival time: 1200 1. Bring a photo ID and your insurance card with you the day of surgery. You will check in at the main lobby of the [facility]- registration desk is straight ahead as soon as you walk in. Tell them you are here for surgery. 2. If you have a Living Will/Durable Power of Mobile Home Installer for Health Care that is not on [...] after you have bathed. 5. NO nail east timorese/acrylic on at least one finger. If you are having a hand, wrist or foot surgery then all nail [place] and artificial/acrylic nails must be removed from [...] WITH YOU ANY DEVICES YOU MAY NEED: KITTY hose, ice machine, sling/swath, brace or special [...] please call the Preadmission Testing office at [phone], Mon.-Fri. 7 a.m.-3 p.m. Leave a voicemail [...] Stop taking 0 days prior to procedure [facility]11-05-2024 History of Present illness Narrative* Wily Ingram NP - 12/14/2023 1:00 PM EST Images from the original note were not included. Chief Complaint Patient presents with Left Hip - Follow-up HISTORY OF PRESENT ILLNESS: Sage Hsu is an 88 y.o. @ female. [...] dislocation. Impression: Unremarkable left total hip arthroplasty. Wily Ingram RIVETING MACHINE OPERATOR AUTOMATIC-POLE SHAVER HELPER ASSESSMENT: ICD-10-CM 1. Trochanteric bursitis of left [...] new symptoms develop for requiring urgent evaluation. Wily Ingram RIVETING MACHINE OPERATOR AUTOMATIC-POLE SHAVER HELPER documented in this encounterMissouri Delta Medical [id number] Evaluation + Plan note* Assessment & Plan Note - Derrek Kirkland MD - 12/09/2023 10:39 AM EDT [...] improve the blood flow to her legs. [facility]10-[facility] Evaluation + Plan note* Assessment & Plan Note - Derrek Kirkland MD - 12/09/2023 10:39 AM EDTAssociated Problem(s): Venous ulcer of ankle, right (CMS-HCC) Discussed with her doing right GSV ablation and ultrasound-guided injection sclerotherapy For rightlower extremity venous ulcer and significant GSV reflux and varicose veins. We will also do Unna boot and wound care. [facility]10-[facility]-2024 Miscellaneous Notes* Assessment & Plan Note - Derrek Kirkland MD - 12/09/2023 10:39 AM EDTAssociated [...] legs. * Assessment & Plan Note - Derrek Kirkland MD - 12/09/2023 10:39 AM EDT Associated Problem(s): Venous ulcer of ankle, right ([facility] [facility] Discussed with her doing right GSV ablation and ultrasound-guided injection sclerotherapy For rightlower extremity venous ulcer and significant GSV reflux and varicose veins. We will also do Unna boot and wound care. documented in this [facility]10-31-2024 History of Present illness Narrative* Derrek Kirkland MD - 12/09/2023 10:00 AM EDT Images from the original note were not included. To: GYPSY MCMAHON MD HPI: Sage Hsu is a 88 y.o. female with [...] loss) Hyperlipidemia Hypertension PAD (peripheral artery disease) ([facility]) Peptic ulceration BLEEDING ULCER ADMITTED 2018 X13 DAYS ZARA Rash Skin cancer REMOVED Sleep apnea no cpap Thin skin Urinary tract infection CHRONIC, SEES ID EVERY 3 MONTHS Visual impairment Wound of ankle RIGHT SINCE 07/2023 Past Surgical History: Past Surgical History: Procedure Laterality Date ABDOMINAL SURGERY ANGIOPLASTY ILIAC-ILIAC SHOCKWAVE INTRAVASCULAR LITHOTRIPSY Right 11/18/2023 Performed by Derrek Kirkland MD at [facility] SPECIAL PROC ARTHROSCOPY SHOULDER W/ OPEN ROTATOR CUFF REPAIR Left 2011 CARDIAC SURGERY CATARACT EXTRACTION CHOLECYSTECTOMY N/A 2008 CORONARY ARTERY BYPASS GRAFT 1998 X5 EYE SURGERY HERNIA REPAIR N/A 03/2012 HIP FRACTURE SURGERY Left 05/2017 HYSTERECTOMY N/A JOINT REPLACEMENT lower ext angiogram Bilateral 01/07/2022 Performed by Taryn Belle MD at [facility] CARDIAC CATH LABS TOTAL HIP ARTHROPLASTY Left [...] and significant GSV reflux and varicose veins Sage was seen today for acute deep vein thrombosis of left popliteal vein (cms- hcc) and critical limb ischemia of right lower extremity with gangre. 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 While intending to generate a timely document that accurately reflects the content of the visit, no guarantee can be provided that every grammatical or spelling mistake has been or will be identified or corrected. Thank you for your understanding. documented in this encounterSpringfield HospitalRipl.io, Inc. [id number] Instructions* Pre- Procedure Instructions - Cristine Stone RN - 11/16/2023 8:00 AM EDT Your surgery/procedure is scheduled at [facility] on 11/18/23 at 1500 Arrival Time 1300 [facility] Address: [address] [place] [address] in [address]1 Parking lot located on [facility]. Report to the Entrance B. Check in at the information desk the surgery. The waiting room located on the second floor. If you have any questions prior to surgery, please call Pre-Admission Clinic at [phone] between 7:30 am and 4:30 pm Wednesday through Wednesday. If you have questions the morning of surgery, please call the Pre-op Department at [phone]. Notify your SURGEON if you develop any [...] RIGHTS AND RESPONSIBILITIES As a patient at [facility], you have the right to: Receive medical care and be informed of who is taking care of you Be treated with dignity and respect Have a family member/authorization representative of choice and your physician notified of your admission Receive information and actively participate in decisions about your care and treatment Refuse care, treatment and services Decide who may provide your support and speak for you Access moravian and spiritual services Participate in ethical issues [...] of hospital charges and payment methods Patient/patient authorization representative responsibilities are to: Provide information about health status to facilitate care, treatment and services Follow the treatment, plan, keep appointments and speak up when you do not understand the plan Respect the rights of other patients and healthcare personnel Follow organizational rules and regulations that support quality care and a safe environment Fulfill financial obligations as promptly as possible [facility]10-08-2024 Miscellaneous Notes* Perioperative Nursing Note - Cristine Stone RN - 11/16/2023 8:00 AM EDT CARDIAC CLEARANCE NOTED INTERMEDIATE NON-PROHIBITIVE RISK FOR CARDIOVASCULAR COMPLICATIONS . NOTE FORM KYREE FLETCHER NP 11/10/23 FOUND IN MEDIA * Pre-Procedure Instructions - Cristine Stone RN - 11/16/2023 8:00 AM EDT Your surgery/procedure is scheduled at [facility] on 11/18/23 at 1500 Arrival Time 1300 [facility] Address: [address] [place] [address] Park in P1 Parking lot located on [facility]. Report to the Entrance B. Check in at the information desk the surgery. The waiting room located on the second floor. If you have any questions prior to surgery, please call Pre-Admission Clinic at [phone] between 7:30 am and 4:30 pm Wednesday through Wednesday. If you have questions the morning of surgery, please call the Pre-op Department at [phone]. Notify your SURGEON if you develop any [...] RIGHTS AND RESPONSIBILITIES As a patient at [facility], you have the right to: Receive medical care and be informed of who is taking care of you Be treated with dignity and respect Have a family member/authorization representative of choice and your physician notified of your admission Receive information and actively participate in decisions about your care and treatment Refuse care, treatment and services Decide who may provide your support and speak for you Access moravian and spiritual services Participate in ethical issues [...] of hospital charges and payment methods Patient/patient authorization representative responsibilities are to: Provide information about health status to facilitate care, treatment and services Follow the treatment, plan, keep appointments and speak up when you do not understand the plan Respect the rights of other patients and healthcare personnel Follow organizational rules and regulations that support quality care and a safe environment Fulfill financial obligations as promptly as possible documented in this encounterSt. Vincent HospitalWebs10-08-2024 Nurse Note* Perioperative Nursing Note - Cristine Stone RN - 11/16/2023 8:00 AM EDT CARDIAC CLEARANCE NOTED INTERMEDIATE NON-PROHIBITIVE RISK FOR CARDIOVASCULAR COMPLICATIONS . NOTE FORM KYREE FLETCHER NP 11/10/23 FOUND IN MEDIA [facility] [employer] [id number] NotePt here for a one year follow up. Pt denies sob, chest pain, palpatations. Review of Systems Cardiovascular: Positive for leg swelling. Gastrointestinal: Positive for diarrhea. All other systems reviewed and are negative.[facility] 11-09-2023 NoteCardiovascular Medicine [facility] SUBJECTIVE Chief Complaint Patient presents with Pre-op Exam Hypertension Coronary Artery Disease Sage Hsu is a 88 y.o. female here [...] Diagnosis Closed fracture of neck of femur ([facility]/HCC) Osteoarthritis of hip PAD (peripheral artery disease) [...] supply (Blood Pressure Cuff) [facility], 1 kit in the morning and at [...] % 14.7 % monocy (more content not included)...[facility] 10-27-2023 Instructions* Pre-Procedure Instructions - Cristine Stone RN - 10/27/2023 12:45 PM EDT Your surgery/procedure is scheduled at [facility] on 11/05/23 at 1:30PM Arrival Time 11:30AM [facility] Address: [address] [place] [address] in P1 Parking lot located on [facility]. Report to the Entrance B. Check in at the information desk the surgery. The waiting room located on the second floor. If you have any questions prior to surgery, please call Pre-Admission Clinic at [phone] between 7:30 am and 4:30 pm Wednesday through Wednesday. If you have questions the morning of surgery, please call the Pre-op Department at [phone]. Notify your SURGEON if you develop any [...] RIGHTS AND RESPONSIBILITIES As a patient at [facility], you have the right to: Receive medical care and be informed of who is taking care of you Be treated with dignity and respect Have a family member/authorization representative of choice and your physician notified of your admission Receive information and actively participate in decisions about your care and treatment Refuse care, treatment and services Decide who may provide your support and speak for you Access moravian and spiritual services Participate in ethical issues [...] of hospital charges and payment methods Patient/patient authorization representative responsibilities are to: Provide information about health status to facilitate care, treatment and services Follow the treatment, plan, keep appointments and speak up when you do not understand the plan Respect the rights of other patients and healthcare personnel Follow organizational rules and regulations that support quality care and a safe environment Fulfill financial obligations as promptly as possible [facility]09-18-2024 Miscellaneous Notes* Pre-Procedure Instructions - Cristine Stone RN - 10/27/2023 12:45 PM EDT Your surgery/procedure is scheduled at [facility] on 11/05/23 at 1:30PM Arrival Time 11:30AM [facility] Address: [address] [place] [address]. [place], [place] [address] Park in P1 Parking lot located on [facility]. Report to the Entrance B. Check in at the information desk the surgery. The waiting room located on the second floor. If you have any questions prior to surgery, please call Pre-Admission Clinic at [phone] between 7:30 am and 4:30 pm Wednesday through Wednesday. If you have questions the morning of surgery, please call the Pre-op Department at [phone]. Notify your SURGEON if you develop any [...] RIGHTS AND RESPONSIBILITIES As a patient at [facility], you have the right to: Receive medical care and be informed of who is taking care of you Be treated with dignity and respect Have a family member/authorization representative of choice and your physician notified of your admission Receive information and actively participate in decisions about your care and treatment Refuse care, treatment and services Decide who may provide your support and speak for you Access moravian and spiritual services Participate in ethical issues [...] of hospital charges and payment methods Patient/patient authorization representative responsibilities are to: Provide information about health status to facilitate care, treatment and services Follow the treatment, plan, keep appointments and speak up when you do not understand the plan Respect the rights of other patients and healthcare personnel Follow organizational rules and regulations that support quality care and a safe environment Fulfill financial obligations as promptly as possible documented in this encounterUniversity Hospitals [facility] Evaluation + Plan note* Assessment & Plan Note - Derrek Kirkland MD - 10/14/2023 11:20 AM EDT Associated Problem(s): Venous ulcer of right leg (CMS-HCC) We will get venous reflux ultrasound. We will proceed with arterial revascularization followed by venous intervention and Unna boot. [facility]09-05-2024 Miscellaneous Notes* Assessment & Plan Note - Derrek Kirkland MD - 10/14/2023 11:20 AM EDTAssociated Problem(s): Venous ulcer of right leg (CMS-HCC) We will get venous reflux ultrasound. We will proceed with arterial revascularization followed by venous intervention and Unna boot. * Assessment & Plan Note - Derrek Kirkland MD - 10/14/2023 11:18 AM EDT [...] simultaneously because of that documented in this encounterUniversity Hospitals Samar[facility] Center09-05-2024 Evaluation + Plan note* Assessment & Plan Note - Derrek Kirkland MD - 10/14/2023 11:18 AM EDT [...] cardiac risk stratification simultaneously because of that [facility]09-05-2024 History of Present illness Narrative* Derrek Kirkland MD - 10/14/2023 10:10 AM EDT Images from the original note were not included. To: GYPSY MCMAHON MD HPI: Sage Hsu is a 88 y.o. female with [...] ext angiogram Bilateral 01/07/2022 Performed by Taryn Blele MD at [facility] CARDIAC CATH LABS TOTAL HIP ARTHROPLASTY 2019 [...] Interpersonal Safety: Unknown (04/01/2023) Received from [facility] Safety & Environment Fear of Current or [...] followed by venous intervention and Unna boot. Sage was seen today for follow up to go over vascular testing that was completed 2 . 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 documented in this encounterUniversity Hospitals Samar[facility] Center05-09-2024 History of Present illness Narrative* Derrek Kirkland MD - 06/17/2023 1:50 PM EDT Images from the original note were not included. To: GYPSY MCMAHON MD HPI: Sage Hsu is a 87 y.o. female with [...] 01/07/2022 Performed by Taryn Belle MD at [facility] CARDIAC CATH LABS TOTAL HIP ARTHROPLASTY 2019 [...] Interpersonal Safety: Unknown (04/01/2023) Received from [facility] Safety & Environment Fear of [...] Plan: Problem List PAD (peripheral artery disease) ([facility]) - Primary Overview Added automatically from request for surgery [id number] Sage was seen today for pad. Diagnoses and all orders for this visit: PAD (peripheral artery disease) ([facility]) Derrek Kirkland MD, QUENTIN, RPVI, FSVS, FACS [facility] [...] you for your understanding. documented in this encounterSt. Vincent HospitalImagineer Systems 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 Preventative measures were discussed. Vitamin C zpop-yqf-erjprye recommended as well as topical Thera workx [...] n due to immunosuppression (ICD-10 - Z91.89) [facility] Other 01-09-2024 Evaluation note* Encounter Date Diagnosis [...] pain. Feb, Pain, unspecified (ICD-10 - R52) [facility] Other 12-19-2023 Hospital Discharge instructions Patient Education 01/26/2023 16:05:17 Urinary Tract Infection, Adult, Yuqu-li-Lzjv Urinary Tract Infection, Adult A urinary tract [...] Follow these instructions at home: Medicines Take upro-msm-erjtiqh and prescription medicines only as told by [...] provider. Document Revised: 09/06/2020 Document Reviewed: 09/06/2020 [employer] Patient Education 2022 [employer]. Follow Up Care 06/09/2022 14:50:19 With:DEB ZAZUETA, MALATHI Olvera, URL Address: [address] [place] [address] [phone] When: Unknown Comments:f/u in [place] [facility] 12-13-2023 Evaluation note* Encounter Date Diagnosis Assessment Notes Treatment Notes Treatment Clinical Notes Jan, Diarrhea (ICD-10 - R19.7) [facility] Other 12-05-2023 Evaluation note* Encounter Date Diagnosis [...] a day, we will re-test for C-diff [facility] Other 11-28-2023 Evaluation note* Encounter Date Diagnosis Assessment Notes Treatment Notes Treatment Clinical Notes Dec, Clostridium difficile colitis (ICD-10 - A04.72) Finish meds as prescribed. (cipro, Flagyl) Followup w Dr. Brown as scheduled. Understands the c diff could recur. Followup as needed Discussed good nutrition and healthy diet. [facility] Other 11-20-2023 Evaluation note* Encounter Date Diagnosis Assessment Notes Treatment Notes Treatment Clinical Notes Dec, Diarrhea, unspecified type (ICD-10 - R19.7) Pt appears to be having secondary from viral infection. There is no abdominal pain on exam and pt is afebrile which is reassuring. C. diff infection is a possibility as she was recently treated [facility] antibitics for a UTI, will check [...] Pt understands and agrees with the plan. [facility] Other 11-07-2023 Evaluation note* Encounter Date Diagnosis Assessment Notes Treatment Notes Treatment Clinical Notes Dec, Frequent UTI (ICD-10 - N39.0) [facility] Other 11-07-2023 Evaluation note* Encounter Date Diagnosis [...] appt lourdes Licea today. Consider PT at [facility]. [facility] Other 08-15-2023 Hospital Discharge instructions Patient Education 09/22/2022 15:32:53 Urinary Tract Infection, Adult, Vvxd-qn-Gulu Urinary Tract Infection, Adult A urinary tract [...] Follow these instructions at home: Medicines Take rjfh-gco-bgkyrdg and prescription medicines only as told by [...] provider. Document Revised: 09/06/2020 Document Reviewed: 09/06/2020 [employer] Patient Education 2022 [employer]. Follow Up Care 09/22/2022 10:38:22 With:MALATHI VIEIRA PA-C, URL Address: [address] [place] [address] When: Unknown [facility] 08-03-2023 Evaluation note* Encounter Date Diagnosis Assessment Notes Treatment Notes Treatment Clinical Notes Sep, Dysuria (ICD-10 - R30.0) [facility] Other 08-01-2023 Evaluation note* Encounter Date Diagnosis Assessment Notes Treatment Notes Treatment Clinical Notes Sep, Microscopic colitis, unspecified microscopic colitis type (ICD-10 - K52.839) [facility] Other 07-25-2023 Evaluation note* Encounter Date Diagnosis Assessment Notes Treatment Notes Treatment Clinical Notes Aug, Frequent UTI (ICD-10 - N39.0) Continue estrogen cream. Review with Urology on her followup appt. Discussed causes of UTIs Aug, Lymphocytic colitis (ICD-10 - K52.832) Improved with GI at [facility]. 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 Barry. Reviewed medications and explained their purpose. [facility] Other 07-20-2023 Evaluation note* Encounter Date Diagnosis Assessment Notes Treatment Notes Treatment Clinical Notes Aug, Recurrent UTI (ICD-10 - N39.0) [facility] Other 05-02-2023 Hospital Discharge instructions Patient Education 06/09/2022 14:15:56 Urinary Tract Infection, Adult, Lqqk-xy-Dkie Urinary Tract Infection, Adult A urinary tract [...] Follow these instructions at home: Medicines Take dcmp-pda-ttspmen and prescription medicines only as told by [...] provider. Document Revised: 09/06/2020 Document Reviewed: 09/06/2020 [employer] Patient Education 2022 [employer]. Follow Up Care 06/01/2022 10:03:13 With:CHER KRISHNAN, JEFF Webb Address: [facility] [address] , [place] [address] [phone] When:10/10/2022 [facility] 04-11-2023 Hospital Discharge instructions Patient Education [...] Treatment for this condition includes: Antibiotic medicine. Bpwh-ybf-jhuqlow medicines to treat discomfort. Drinking enough water [...] Follow these instructions at home: Medicines Take wgxl-pfl-ivulkgr and prescription medicines only as told by [...] 11/04/2005 Document Revised: 01/12/2019 Document Reviewed: 08/04/2018 [employer] Patient Education 2020 [employer]. Follow Up Care 04/20/2022 10:50:51 With:DEB ZAZUETA, MALATHI Olvera, URL Address: [facility] [place] [address] When: Unknown [facility] 04-06-2023 Evaluation note* Encounter Date Diagnosis Assessment Notes Treatment Notes Treatment Clinical Notes May, Frequent UTI (ICD-10 - N39.0) [facility] Other 03-24-2023 Evaluation note* Encounter Date Diagnosis [...] back this morning. antibiotic at her pharmacy. [facility] Other 03-17-2023 Evaluation note* Encounter Date Diagnosis Assessment Notes Treatment Notes Treatment Clinical Notes Apr, Lymphocytic colitis (ICD-10 - K52.832) Continue Entyvio as directed Continue Lotronex 0.5 mg 1/2 tablet daily Rto 4 months [facility] Other 03-09-2023 Evaluation note* Encounter Date Diagnosis Assessment Notes Treatment Notes Treatment Clinical Notes Apr, Acute cystitis without hematuria (ICD-10 - N30.00) [facility] Other 02-28-2023 Evaluation note* Encounter Date Diagnosis Assessment Notes Treatment Notes Treatment Clinical Notes Mar, Recurrent UTI (ICD-10 - N39.0) Discussed options. Will try estrogen cream for vaginal health. Denies personal history of female cancers. Will also set up w Urology Mar, Colitis (ICD-10 - K52.9) Further treatment with Dr. Brown w appt on 04/24 [facility] Other 02-20-2023 Evaluation note* Encounter Date Diagnosis Assessment Notes Treatment Notes Treatment Clinical Notes Mar, Dysuria (ICD-10 - R30.0) [facility] Other 01-09-2023 Evaluation note* Encounter Date Diagnosis Assessment Notes Treatment Notes Treatment Clinical Notes Feb, Acute cystitis without hematuria (ICD-10 - N30.00) Sent to [facility] for urine culture - will treat based on results. Feb, Encounter for immunization (ICD-10 - Z23) Feb, Microscopic colitis, unspecified microscopic colitis type (ICD-10 - K52.839) Keep appt w Dr. Brown. Discussed boost or other supplement to gain weight Feb, Gastric ulcer (ICD-10 - K25.9) Encouraged her to continue pantoprazole [facility] Other 01-04-2023 Evaluation note* Encounter Date Diagnosis Assessment Notes Treatment Notes Treatment Clinical Notes Feb, Lymphocytic colitis (ICD-10 - K52.832) Start Entyvio infusions every 8 weeks Continue Budesonide, Alosetron, Imodium, and Pepto for now until starting Entyvio. Pt to keep record of bowel movements - how many and consistency Follow up in 2 months Feb, Fecal incontinence (ICD-10 - R15.9) [facility] Other 11-28-2022 Evaluation note* Encounter Date Diagnosis [...] Pantoprazole as prescribed Okay to stop Sucralfate [facility] Other 09-25-2022 NoteOPERATIVE NOTE OPERATION DATE: 11/04/2021 PREOPERATIVE DIAGNOSIS: Melanotic stools and blood loss anemia. POSTOPERATIVE DIAGNOSIS: Distal gastric and duodenal ulcers and gastritis. PROCEDURE: Esophagogastroduodenoscopy with biopsies. SURGEON: Dr. Opal Roman ANESTHESIA: MAC. ESTIMATED BLOOD LOSS: None. [...] was taken to PACU in good condition.[facility] 03-27-2021 Evaluation note* Encounter Date Diagnosis Assessment Notes Treatment Notes Treatment Clinical Notes Mar, Microscopic colitis, unspecified microscopic colitis type (ICD-10 - K52.839) INCREASE COLESTIPOL TO 4 TABS AT LUNCHTIME DAILY IF NOT IMPROVED ON HIGHER DOSE PT TO CALL ON 03/31 FOR ALTERNATIVE PLAN Mar, Irritable bowel syndrome with diarrhea (ICD-10 - K58.0) [facility] Other 12-20-2021 Evaluation note* Encounter Date Diagnosis Assessment Notes Treatment Notes Treatment Clinical Notes Jan, Microscopic colitis, unspecified microscopic colitis type (ICD-10 - K52.839) START COLESIPOL 2 PO DAILY CONTINUE BUDESONIDE WITHOUT CHANGE 3 PO Q AM AND MAYBE CONSIDERING STOP THIS IF COLESTIPOL IS WORKING ENOUGH TO CONTROL HER SYMPTOMS [facility] Other 12-20-2021 Evaluation note* Encounter Date Diagnosis Assessment Notes Treatment Notes Treatment Clinical Notes Jan, Microscopic colitis, unspecified microscopic colitis type (ICD-10 - K52.839) [facility] Other Evaluation + Plan note No data available for this section [facility] evaluation + Plan note Future Appointments Appointment Date:10/27/2022 01:00:00 PM Scheduled Provider:MALATHI VIEIRA PA-C Location:[facility] Appointment Type:URO Office Visit [facility] [place] evaluation + Plan note Future Appointments Appointment Date:12/29/2022 01:00:00 PM Scheduled Provider:MALATHI VIEIRA PA-C Location:[facility] Appointment Type:URO Office Visit [facility] evaluation + Plan note Future Appointments Appointment Date:06/15/2023 02:00:00 PM Scheduled Provider:MALATHI VIEIRA PA-C Location:[facility] Appointment Type:URO Office Visit [facility] evaluation + Plan note Future Appointments Appointment Date:01/30/2023 10:30:00 AM Scheduled Provider: [facility] Appointment Type:ASU IV Antibiotic (FT) Appointment Date:01/31/2023 10:30:00 AM Scheduled Provider: [facility] Appointment Type:ASU IV Antibiotic (FT) Appointment Date:02/01/2023 10:30:00 AM Scheduled Provider: Location:[facility] Appointment Type:ASU IV Antibiotic (FT) Appointment Date:02/02/2023 10:30:00 AM Scheduled Provider: Location:[facility] Appointment Type:ASU IV Antibiotic (FT) Appointment Date:02/03/2023 10:30:00 AM Scheduled Provider: Location:[facility] Appointment Type:ASU IV Antibiotic (FT) Appointment Date:02/04/2023 10:30:00 AM Scheduled Provider: Location:[facility] Appointment Type:ASU IV Antibiotic (FT) Appointment Date:06/15/2023 02:00:00 PM Scheduled Provider:MALATHI VIEIRA PA-C Location:[facility] Appointment Type:URO [facility] InformationNort divorce360 Other Evaluation noteNo assessment information available [facility] Work Phone: Evaluation note* Diagnosis Onset Date Resolution Status Recurrent Clostridioides difficile diarrhea acute [facility] Work Phone: Evaluation note* Diagnosis Onset Date Resolution Status Recurrent Clostridioides difficile diarrhea acute Diarrhea acute Microscopic colitis acute Recurrent Clostridioides difficile diarrhea acute Recurrent UTI acute [facility] Work Phone: Evaluation note* Diagnosis Trochanteric bursitis of left hip- Primary Primary osteoarthritis of left hip History of left hip replacement documented in this encounter [facility] HealthcareEvaluation note* Diagnosis Critical limb ischemia [...] rest pain (CMS-HCC) documented in this encounter [facility]* Diagnosis Primary osteoarthritis of left knee- Primary Left knee pain, unspecified chronicity Olecranon bursitis, right elbow documented in this encounter [facility] HealthcareEvaluation note* Diagnosis PAD (peripheral artery disease) (CMS-HCC)- Primary Unspecified peripheral vascular disease documented [facility] Diagnosis 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 ulcer of right leg (CMS-HCC) [facility] Diagnosis 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 ulcer of right leg (CMS-HCC) 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 ulcer of ankle, right (CMS-HCC) Critical limb ischemia of both lower extremities with rest pain (CMS-HCC) [facility]* Diagnosis Critical limb [...] therapeutic drug monitoring documented [facility]* Diagnosis Critical limb [...] venous (peripheral) insufficiency documented in this encounter [facility]* Diagnosis Critical limb ischemia [...] with rest pain (CMS-HCC)- Primary 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, unspecified ulceration site (CMS-HCC) PAD (peripheral artery disease) (CMS-HCC) Unspecified peripheral vascular disease Encounter for therapeutic drug monitoring documented [facility]* Diagnosis Critical limb [...] venous (peripheral) insufficiency documented in this [facility]* Diagnosis Critical limb ischemia [...] gangrene (CMS-HCC)- Primary documented in this [facility]* Diagnosis Status post small bowel resection- Primary Other postprocedural status 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 documented in this encounter [facility] HealthcareEvaluation note* Diagnosis Critical limb ischemia [...] left lower extremity with rest pain (CMS-HCC) PAD (peripheral artery disease)- Primary Unspecified peripheral vascular disease [facility] general Narrative - Reported* Type Description Date Medical History HTN Medical History hyperlipidemia Medical History microscopic colitis Surgical History T&A Surgical History Quad by-pass Surgical History total hysterectomy Surgical History gall bladder Surgical History Cataracts Surgical History Right Knee Scope Surgical History Sphincterectomy Surgical History Left Rotator Scope Surgical History Hernia Repair 03/24/2012 Hospitalization History See Surgical Hx [facility] Other [facility] general Narrative - Reported* Type Description Date [...] Hospitalization History See Surgical Hx Hospitalization History [facility] 12/2022 [facility] Other [facility] general Narrative - Reported* Type Description Date [...] Hospitalization History See Surgical Hx Hospitalization History [facility] 12/2022 [facility] Other [facility] general Narrative - Reported* Type Description Date [...] Hospitalization History See Surgical Hx Hospitalization History [facility] 12/2022 [facility] Other Sell[facility]krkx general Narrative - Reported* Type Description Date [...] Hospitalization History See Surgical Hx Hospitalization History [facility] 12/2022 [facility] Other Hospital Discharge instructions No data available for this section [facility] Attachments The following attachments cannot be sent through Care Everywhere. * Peripheral Vascular (Arterial) Disease Discharge Instructions (Dutch) * Atherectomy - Angioplasty of a Noncoronary Vessel (Dutch) * Gangrene Discharge Instructions (Dutch) [facility] System[facility]ructionsNot on file documented in this [...] Health SystemInstructionsNot on file documented in this [facility] SystemProgress note No data available for this section [facility] reason for referral (narrative)* Misc (Routine) - Pending Review Specialty Diagnoses / Procedures Referred By Contac t Referred To Contact Procedures Hygiene Aroldo Burns APRN-CNP [facility], [address] [place], [place] [id number] Phone: tel:[phone] fax: Referral ID Status Reason Start Date Expiration Date V isits Requested Visits Authorized [id number] Pending Review 01/07/2024 01/06/2025 1 1 * Misc (Routine) - Pending Review Specialty Diagnoses / Procedures Referred By Contac t Referred To Contact Procedures Wound care (specify) Aroldo Burns APRN-CNP [facility], [address] [place] [phone] Phone: tel: fax: Referral ID Status Reason Start Date Expiration Date V isits Requested Visits Authorized [id number] Pending Review 01/07/2024 01/06/2025 1 1 * Misc (Routine) - Pending Review Specialty Diagnoses / Procedures Referred By Contac t Referred To Contact Procedures Wound care (specify) Aroldo Burns APRN-LIS [address] [facility], [address] [place] [address] Phone: tel: fax: Referral ID Status Reason Start Date Expiration Date V isits Requested Visits Authorized [id number] Pending Review 01/07/2024 01/06/2025 1 1 [facility] N[facility]ative* Auth/Cert (Routine) Specialty Diagnoses / Procedures Referred By Contac t Referred To Contact Diagnoses 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, ARTERIAL OCCLUSIVE DISEASE Procedures [place] REVASCULARIZATION ILIAC ARTERY ANGIOP 1ST VSL ENDARTERECTOMY FEMORAL (ILIOFEMORAL ENDARTERECTOMY) ANGIOPLASTY ILIAC BYPASS ARTERY FEMORAL POPLITEAL Derrek Kirkland MD [address] [place] [address] Phone: tel: fax: Referral ID Status Reason Start Date Expiration Date Visits Re quested Visits Authorized [id number] 1 1 [facility] Summary Purpose Family History No Family History [...] Documents on File Type Date Recorded 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 Living Will 11/05/2023 11:42 AM Date Activated Date Inactivated Comments 11/19/2023 7:37 AM 11/19/2023 2:11 PM Healthcare Agents on File Name Relationship Healthcare Agent Relationship Communication Joanna Linkenhoker Daughter First Charlie chahal Health Care Agent [email or web address] Documents on File Type Date Recorded 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 Living Will 11/05/2023 11:42 AM Healthcare Agents on File Name Relationship Healthcare Agent Relationship Communication Joanna Linkenhoker Daughter First Charlie chahal Health Care Agent [email or web address] Agents on File Name Relationship Healthcare Agent Relationship Communication Joanna Linkenhoker Daughter First Charlie chahal Health Care Agent [email or web address] Agents on File Name Relationship Healthcare Agent Relationship Communication Joanna Linkenhoker Daughter First Charlie te Health Care Agent [email or web address] Agents on File Name Relationship Healthcare Agent Relationship Communication Joanna Linkenhoker Daughter First Charlie chahal Health Care Agent [email or web address] Activated Date Inactivated Comments 11/19/2023 7:37 AM 11/19/2023 2:11 PM Healthcare Agents on File Name Relationship Healthcare Agent Relationship Communication Joanna Linkenhoker Daughter First Charlie te Health Care Agent [email or web address] Healthcare Agents on File Name Relationship Healthcare Agent Relationship Communication Joanna Linkenhoker Daughter First Charlie te Health Care Agent [email or web address] Agents on File Name Relationship Healthcare Agent Relationship Communication Joanna Linkenhoker Daughter First Charlie te Health Care Agent [email or web address] Healthcare Agents on File Name Relationship Healthcare Agent Relationship Communication Joanna Linkbeatrizoker Daughter First Charlie chahal Health Care Agent [email or web address] Healthcare Agents on File Name Relationship Healthcare Agent Relationship Communication Joanna Linkenhoker Daughter First Charlie chahal Health Care Agent [email or web address] Healthcare Agents on File Name Relationship Healthcare Agent Relationship Communication Joanna Linkenhoker Daughter First Charlie chahal Health Care Agent [email or web address] Advance Directive Response Recorded Date/ Time Advance Directives No April 13 9:53am Advance Directive Response Recorded Date/ Time Advance Directives No May 22, 025 4:06pm Healthcare Agents on File Name Relationship Healthcare Agent Relationship Communication Joanna Linkbeatrizoker Daughter First Charlie chahal Health Care Agent [email or web address] Hospital [facility] Summary PERSON INFORMATION Name SAGE HSU Age 83 Years 1935 Sex FEMALE Language Dutch PCP Jai KRISHNAN, Gypsy Olvera Marital Status Med Service Med/Surg Acct# Arrival 09/25/2019 06:52:00 Visit Reason SURGERY - LEFT TOTAL HIP Acuity LOS Address: [address] [place] [address] Comment: PROVIDER INFORMATION VITALS INFORMATION Vital Sign [...] cholecalcifero (more content not included)... Note Patient: SAGE HSU Age: 83 years Sex: FEMALE : [...] Enrike Mora MD Procedure Findings Note Patient: SAGE HSU Age: 83 years Sex: FEMALE : [...] Date Amb Documentation December 27, 2023 8:54am mcc visit January 10, 2024 1 1:59pm 4 month follow up February 21, 2024 1 :24pm [facility] follow up March 23 1:46pm Reason for Visit Admit Date Microscopic colitis February 21, 2024 1 :24pm Chief Complaint Admit Date mcc visit January 10, 2024 1 1:59pm 4 month follow up February 21, 2024 1 :24pm [facility] follow up March 23 1:46pm Reason for Visit Admit Date Microscopic colitis February 21, 2024 1 :24pm Arterial vascular disease March 23, 2024 1:46pm Hyperlipidemia March 23, 2024 1:46pm Hypertension March 23, 2024 1:46pm Chief Complaint Admit Date 4 month follow up February 21, 2024 1 :24pm [facility] follow up March 23 1:46pm Amb Documentation April 10, 2024 8:54 am TBH, UTI April 13, 2024 2:36 pm Reason for Visit Admit Date Microscopic colitis February 21, 2024 1 :24pm Arterial vascular disease March 23, 2024 1:46pm Hyperlipidemia March 23, 2024 1:46pm Hypertension March 23, 2024 1:46pm Recurrent UTI April 13, 2024 2:36 pm Chief Complaint Admit Date 4 month follow up February 21, 2024 1 :24pm Chcf follow up March 23 1:46pm Amb Documentation April 10, 2024 8:54 am TBH, UTI April 13, 2024 2:36 pm Unknown April 24, 2024 3:2 1pm Reason for Visit Admit Date Microscopic colitis February 21, 2024 1 :24pm Arterial vascular disease March 23, 2024 1:46pm Hyperlipidemia March 23, 2024 1:46pm Hypertension March 23, 2024 1:46pm Flu-like symptoms April 13, 2024 2:36 pm Recurrent UTI April 13, 2024 2:36 pm Chief Complaint Admit Date 4 month follow up February 21, 2024 1 :24pm Chcf follow up March 23 1:46pm Amb Documentation April 10, 2024 8:54 am TBH, UTI April 13, 2024 2:36 pm Unknown April 24, 2024 3:2 1pm Small Bowel Obstruction April 28, 2024 1:25pm Small Bowel Obstruction May 03, 2024 2:27pm Reason for Visit Admit Date Microscopic colitis February 21, 2024 1 :24pm Arterial vascular disease March 23, 2024 1:46pm Hyperlipidemia March 23, 2024 1:46pm Hypertension March 23, 2024 1:46pm Flu-like symptoms April 13, 2024 2:36 pm Recurrent UTI April 13, 2024 2:36 pm Arterial vascular disease April 28 1:25pm Bowel obstruction April 28, 2024 1:2 5pm Chronic colitis April 28, 2024 1:2 5pm Hyperlipidemia April 28, 2024 1:2 5pm Hypertension April 28, 2024 1:2 5pm Post-operative pain April 28, 2024 1:2 5pm Status post small bowel resection April 28, 2024 1:25pm Chief Complaint Admit Date Chcf follow up March 23 1:46pm Amb Documentation April 10, 2024 8:54 am TBH, UTI April 13, 2024 2:36 pm Unknown April 24, 2024 3:2 1pm Small Bowel Obstruction April 28, 2024 1:25pm Small Bowel Obstruction May 03, 2024 2:27pm Chcf Visit May 08, 2024 11: 59pm follow up inpt stay for bowel obstructio ns May 22, 2024 1:33pm Reason for Visit Admit Date Arterial vascular disease March 23, 2024 1:46pm Hyperlipidemia March 23, 2024 1:46pm Hypertension March 23, 2024 1:46pm Flu-like symptoms April 13, 2024 2:36 pm Recurrent UTI April 13, 2024 2:36 pm Arterial vascular disease April 28 1:25pm Bowel obstruction April 28, 2024 1:2 5pm Chronic colitis April 28, 2024 1:2 5pm Hyperlipidemia April 28, 2024 1:2 5pm Hypertension April 28, 2024 1:2 5pm Post-operative pain April 28, 2024 1:2 5pm Status post small bowel resection April 28, 2024 1:25pm Bowel obstruction May 22, 2024 1:3 3pm Chief Complaint Admit Date Amb Documentation April 10, 2024 8:54 am TBH, UTI April 13, 2024 2:36 pm Unknown April 24, 2024 3:2 1pm Small Bowel Obstruction April 28, 2024 1:25pm Small Bowel Obstruction May 03, 2024 2:27pm Chcf Visit May 08, 2024 11: 59pm follow up inpt stay for bowel obstructio ns May 22, 2024 1:33pm Follow up June 05, 2024 11: 59pm Amb Documentation June 07, 2024 1:4 8pm Unknown July 07, 2024 12:45 pm Reason for Visit Admit Date Flu-like symptoms April 13, 2024 2:36 pm Recurrent UTI April 13, 2024 2:36 pm Arterial vascular disease April 28 1:25pm Bowel obstruction April 28, 2024 1:2 5pm Chronic colitis April 28, 2024 1:2 5pm Hyperlipidemia April 28, 2024 1:2 5pm Hypertension April 28, 2024 1:2 5pm Post-operative pain April 28, 2024 1:2 5pm Status post small bowel resection April 28, 2024 1:25pm Bowel obstruction May 22, 2024 1:3 3pm History of peptic ulcer disease May 222024 1:33pm Microscopic colitis May 22, 2024 1:3 3pm Recurrent UTI May 25, 2024 2:3 5pm Chief Complaint Admit Date Unknown April 24, 2024 3:2 1pm Small Bowel Obstruction April 28, 2024 1:25pm Small Bowel Obstruction May 03, 2024 2:27pm Chcf Visit May 08, 2024 11: 59pm follow up inpt stay for bowel obstructio ns May 22, 2024 1:33pm Follow up June 05, 2024 11: 59pm Amb Documentation June 07, 2024 1:4 8pm Unknown July 07, 2024 12:45 pm Amb Documentation July 10, 2024 10:51 am [facility] ER; fall/AMS July 13, 2024 8:56a m Reason for Visit Admit Date Arterial vascular disease April 28 1:25pm Bowel obstruction April 28, 2024 1:2 5pm Chronic colitis April 28, 2024 1:2 5pm Hyperlipidemia April 28, 2024 1:2 5pm Hypertension April 28, 2024 1:2 5pm Post-operative pain April 28, 2024 1:2 5pm Status post small bowel resection April 28, 2024 1:25pm Bowel obstruction May 22, 2024 1:3 3pm History of peptic ulcer disease May 222024 1:33pm Microscopic colitis May 22, 2024 1:3 3pm Recurrent UTI May 25, 2024 2:3 5pm Reason for Referral Specialty Diagnoses / Procedures Referred By Contac t Referred To Contact Diagnoses 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 ([facility]) Venous ulcer of right leg ([facility]) Procedures Vas venous duplex insufficiency lwr bi Derrek Kirkland MD [address], [address] [address] Referral ID Status Reason Start Date Expiration Date V isits Requested Visits Authorized [id number] Pending Review 10/14/2023 10/13/2024 1 1 Specialty Diagnoses / Procedures Referred By Contac t Referred To Contact Diagnoses PAD (peripheral artery disease) ([facility]) Procedures Vas art doppler lwr bilat mult lev/PVR Derrek Kirkland MD [address], [address] [address] Referral ID Status Reason Start Date Expiration Date V isits Requested Visits Authorized [id number] Pending Review 06/17/2023 06/16/2024 1 1 Reason DUPLICATE [place] office - frequent UTIs. Diagnosis 1 Frequent UTI (N39.0) Referral Organization [facility] jah Referring Provider First Name Gypsy Referring Provider Last Name Jai Referring Provider Specialty [facility] [employer] Referred Organization [facility] Referred Provider Beau Hernandez Referred Address [address],[place],[address] Referred Provider Specialty Urology Referral Priority Routine General Notes Tatyana Bojorquez 01:56:52 PM >received today Tatyana Bojorquez 05/14/2022 02:02:41 PM >attachments made, notes locked, referral faxed Tatyana Bojorquez 05/14/2022 03:25:50 PM >DUPLICATE REFERRAL Reason *FU 04/28 [place] office - recurrent UTIs. Diagnosis 1 Recurrent UTI (N39.0 ) Referral Organization [facility] Referring Provider First Name Gypsy Referring Provider Last Name Jai Referring Provider Specialty [facility] [employer] Referred Organization [facility] Referred Provider Gerson Juárez Referred Address [address],[place],[address] Referred Provider Specialty Urology Referral Priority Routine [...] and content) DATE CREATED AUTHOR 09/17/2018 [facility] DATE CREATED AUTHOR AUTHOR'S ORGANIZ ATION 10/30/2019 [facility] DATE CREATED AUTHOR AUTHOR'S ORGANIZ ATION 05/31/2022 [facility] DATE CREATED AUTHOR AUTHOR'S ORGANIZ ATION 07/29/2023 [facility] DATE CREATED AUTHOR AUTHOR'S ORGANIZ ATION 01/21/2024 [facility] DATE CREATED AUTHOR AUTHOR'S ORGANIZ ATION 05/19/2024 [facility] DATE CREATED AUTHOR AUTHOR'S ORGANIZ ATION 07/23/2024 [facility] DATE CREATED AUTHOR AUTHOR'S ORGANIZ ATION 07/30/2024 [facility] DATE CREATED AUTHOR AUTHOR'S ORGANIZ ATION 07/30/2024 [facility] DATE CREATED AUTHOR AUTHOR'S ORGANIZ ATION 08/03/2024 [facility] REASON FOR VISIT [...] leg comes and goes rates 6 /10 Reason Comments 2nd pow 04-29-24 exploratoy laparotomy, l ysis of adhesions, Reason Comments go over art doppler and art duplex 5'/10 pain leg and foot right Care Teams (unrecognized sec tion and content) Team Status: Active Member Role Status Dates Gypsy Mcmahon MD Primary Care Provider Active Team Status: Active Member Role Status Dates Gypsy Mcmahon MD Primary Care Provider Active Start: April 24, 2024 Lila Bernard PA-C Attending Provider Active Start: April 24, 2024 Team Status: Inactive Member Role Status Dates Lila Bernard PA-C Attending Provider Active Start: April 24, 2024 End: April 24, 2024 Team Status: Active Member Role Status Dates Gypsy Mcmahon MD Primary Care Provider Active Start: April 25, 2024 Jeanette Moseley Attending Provider Active Start: [facility] 2024 Team Status: Active Member Role Status Dates Jeanette Moseley Attending Provider Active Start: [facility] 2024 Team Status: Active Member Role Status Dates Jeanette Moseley Attending Provider Active Start: [facility] 2024 Team Status: Active Member Role Status Dates Jeanette Moseley Attending Provider Active Start: [facility] 2024 Team Status: Inactive Member Role Status Dates Gypsy Mcmahon MD Primary Care Provider Active Start: April 28, 2024 End: May 05, 2024 Hortensia Owen MD Admit Provider Active Start : April 28, 2024 End: May 05, 2024 Tyrese Girard MD Other Provider Active Start: April 28, 2024 End: May 05, 2024 Dereje Gil MD Attending Provider Active Start: April 28, 2024 End: May 05, 2024 Jolanta Ivan MD Other Provider Active Start: [facility] 2024 End: May 05, 2024 Jm Armstrong MD Other Provider Active Start: [facility] 2024 End: May 05, 2024 Renetta Patel APRN Other Provider Active St art: April 28, 2024 End: May 05, 2024 Job Solomon Jr, DO Other Provider Active S tart: April 28, 2024 End: May 05, 2024 Jurgen Maria MD Other Provider Active Start: April 28, 2024 End: May 05, 2024 Team Status: Active Member Role Status Dates Gypsy Mcmahon MD Primary Care Provider Active Start: May 03, 2024 Hortensia Owen MD Admit Provider Active Start : May 03, 2024 Tyrese Girard MD Other Provider Active Start: May 03, 2024 Dereje Gil MD Other Provider Active Start: May 03, 2024 Jolanta Ivan MD Other Provider Active Start: [facility] 2024 Jm Armstrong MD Attending Provider, Other Provider Active Start: May 03, 2024 Renetta Patel APRN Other Provider Active St art: May 03, 2024 [place] Nirav Solomon Jr, DO Other Provider Active S tart: May 03, 2024 Jurgen Maria MD Other Provider Active Start: May 03, 2024 Team Status: Active Member Role Status Dates Gypsy Mcmahon MD Primary Care Provide r, Attending Provider Active Start: May 08, 2024 Team Status: Inactive Member Role Status Dates Gypsy Mcmahon MD Primary Care Provider Active Start: May 22, 2024 End: May 22, 2024 Monie L Ly , DO Attending Provider Active St art: May 22, 2024 End: May 22, 2024 Team Status: Inactive Member Role Status Dates Gypsy Mcmahon MD Primary Care Provider Active Start: May 25, 2024 End: May 25, 2024 Jacinto Max MD Attending Provider Active Sta rt: May 25, 2024 End: May 25, 2024 Team Status: Active Member Role Status Dates Gypsy Mcmahon MD Primary Care Provide r, Attending Provider Active Start: June 05, 2024 Team Status: Active Member Role Status Dates Gypsy Mcmahon MD Primary Care Provider Active Start: June 07, 2024 Monie Boyer CMA Attending Provider Active Start: June 07, 2024 Team Status: Active Member Role Status Dates Gypsy Mcmahon MD Primary Care Provider Active Start: July 07, 2024 Saji Vaca DO Attending Provider Active Start : July 07, 2024 Team Status: Inactive Member Role Status Dates Saji Vaca DO Attending Provider Active Start : July 07, 2024 End: July 07, 2024 Team Status: Active Member Role Status Valdemar Boyer CMA Attending Provider Active Start: July 10, 2024 Team Status: Inactive Member Role Status Valdemar Mcmahon MD Primary Care Provide r, Attending Provider Active Start: July 13, 2024 End: July 13, 2024 Team Status: Inactive Member Role Status Valdemar Mcmahon MD Primary Care Provider Active Start: February 21, 2024 End: February 21, 2024 Monie L Ly , DO Attending Provider Active St art: February 21, 2024 End: February 21, 2024 Team Status: Inactive Member Role Status Valdemar Mcmahon MD Primary Care Provide r, Attending Provider Active Start: March 23, 2024 End: March 23, 2024 Team Status: Active Member Role Status Valdemar Mcmahon MD Primary Care Provide r, Attending Provider Active Start: April 07, 2024 Team Status: Active Member Role Status Valdemar [...] 2024 Team Status: Active Member Role Status Valdemar [...] 21, 2023 End: May 21, 2023 Monie L Ly , DO Attending [...] Member Role Status Dates Malathi Velázquez APRN ENERGY EFFICIENCY SPECIALIST-C Attending Provider Act judah Start: December 28, [...] February 26, 2023 End: February 26, 2023 Center Medical Director Relationship Specialty Start Date End Date Gypsy Mcmahon MD [address] [place] [phone] PCP - General Family Medicine 07/18/22 Center Medical Director Relationship Specialty Start Date End Date Gypsy Mcmahon MD [address] [place] [phone] PCP - General Family Medicine 07/18/22 Center Medical Director Relationship Specialty Start Date End Date Gypsy Mcmahon MD [address] [place] [address] PCP - General Family Medicine 04/10/22 Center Medical Director Relationship Specialty [place] [address] [place] [phone] PCP - General Family Medicine 07/18/22 Center Medical Director Relationship Specialty [place] [address] [place], [place] [phone] PCP - General Family Medicine 07/18/22 Center Medical Director Relationship Specialty Start Date End Date Gypsy Mcmahon MD [address] [place] [phone] PCP - General Family Medicine 04/10/22 Team Status: Active Member Role Status Dates Gypsy Mcmahon MD Primary Care Provider Active Start: December 27, 2023 Monie Boyer CMA Attending Provider Active Start: December 27, 2023 Team Status: Active Member Role Status Dates Gypsy Mcmahon MD Primary Care Provide r, Attending Provider Active Start: January 10, 2024 Center Medical Director Relationship Specialty Start Date End Date Gypsy Mcmahon MD [address] [place] [phone] PCP - General Family Medicine 04/10/22 Center Medical Director Relationship Specialty Start Date End Date Gypsy Mcmahon MD [address] [place] [phone] PCP - General Family Medicine 04/10/22 Center Medical Director Relationship Specialty [place] [address] [place] [phone] PCP - General Family Medicine 04/10/22 Center Medical Director Relationship Specialty Start Date End Date Gypsy Mcmahon MD [address] [place] [phone] PCP - General Family Medicine 04/10/22 Center Medical Director Relationship Specialty Start Date End Date Gypsy Mcmahon MD [address] [place] [phone] PCP - General Family Medicine 04/10/22 Center Medical Director Relationship Specialty Start Date End Date Gypsy Mcmahon MD [address] [place] [phone] PCP - General Family Medicine 04/10/22 Center Medical Director Relationship Specialty Start Date End Date Gypsy Mcmahon MD [address] [place] [phone] PCP - General Family Medicine 04/10/22 Center Medical Director Relationship Specialty Start Date End Date Gypsy Mcmahon MD [address] [place] [phone] PCP - General Family Medicine 04/10/22 Center Medical Director Relationship Specialty Start Date End Date Gypsy Mcmahon MD [address] [place] [phone] PCP - General Family Medicine 04/10/22 Center Medical Director Relationship Specialty Start Date End Date Gypsy Mcmahon MD [address] [place] [phone] PCP - General Family Medicine 04/10/22 Center Medical Director Relationship Specialty Start Date End Date Gypsy Mcmahon MD [address] [place] [phone] PCP - General Family Medicine 04/10/22 Team Status: Active Member Role Status Dates Gypsy Mcmahon MD Primary Care Provider Active Start: April 09, 2024 Jose G Ellington DO Attending Provider Active Sta rt: April 09, 2024 Center Medical Director Relationship Specialty Start Date End Date Gypsy Mcmahon MD [address] [place] [phone] PCP - General Family Medicine 07/18/22 Center Medical Director Relationship Specialty Start Date End Date Gypsy Mcmahon MD [address] [place] [phone] PCP - General Family Medicine 04/10/22 Goals [...] KAYLYNN) 1327 (Given - Provider: Eleanor Soto, KAYLYNN)2100 [...] 75 mg, oral, Daily, First dose on 01/01/24 at 1915, Look-alike/sound-alike medication - verify indication [...] Matilda Wilson RN)1727 (Given - Provider: Matilda Wilson RN) 0817 (Given - Provider: Eleanor Soto RN)1704 (Given - Provider: Eleanor Soto RN) Continuous Medication Order 01/05/2024 01/06/2024 01/07/2024 lactated [...] Argueta RN)1316 (See Alternative - Provider: Monie Brown, KAYLYNN)1703 (See Alternative - Provider: Monie Brown, KAYLYNN) [...] BE BASED ON THE PRIMARY CLINICAL RECORDS. [employer] provides no warranty or guarantee of the accuracy or completeness of information in this document.
--- NOTE | 2024-08-06 20:46 | ED.LOWEXI1 ---
HPI HPI - Extremity Injury (Lower) General Chief Complaint: Extremity Injury, Lower Stated Complaint: feet pain red Time Seen by Provider: 08/06/24 20:38 Source: patient Mode of arrival: Wheelchair History of Present Illness HPI Narrative: bilat. PAD R>L. s/p right fem bypass 12/2023. Surgery was performed as she had non healing wound on her right foot. The wound head and swelling also resolved. Per family Her vascular surgeon feels she has new blockage and they are trying nonoperative treatment to see if it helps. Started on Pletal 100 bid 2 weeks ago. Tonight family noticed the foot appeared purple and blotchy and brought her in. She has no new complaints. The purple blotchy discoloration resolved and now her foot/ankle red as usual. No fever . Patient able to ambulate on the foot as usual Related Data Home Medications ?Medication ?Instructions ?Recorded ?Confirmed simvastatin 40 mg tablet 40 mg PO DAILY 09/27/22 04/24/24 acetaminophen 500 mg tablet 1,000 mg PO Q6H PRN pain 12/29/22 04/24/24 budesonide 3 mg 3 mg PO DAILY 12/29/22 04/24/24 capsule,delayed,extended release cholecalciferol (vitamin D3) 50 50 mcg PO DAILY 12/29/22 04/24/24 mcg (2,000 unit) tablet (D3 DOTS) loperamide 2 mg capsule (Imodium 2 mg PO Q4H 12/29/22 04/24/24 A-D) melatonin 5 mg tablet 5 mg PO DAILY 12/29/22 04/24/24 zinc gluconate 50 mg tablet 50 mg PO DAILY 12/29/22 04/24/24 pantoprazole 20 mg tablet,delayed 20 mg PO DAILY 07/25/23 04/24/24 release bismuth subsalicylate 262 mg 3 tab PO DAILY 04/07/24 04/24/24 chewable tablet (Bismuth) gabapentin 100 mg capsule 100 mg PO Q12H 04/07/24 04/24/24 multivitamin (Daily Multi-Vitamin 1 tab PO DAILY 04/07/24 04/24/24 tablet) nebivolol 10 mg tablet 10 mg PO DAILY 04/07/24 04/24/24 clopidogrel 75 mg tablet 75 mg PO DAILY 04/25/24 04/25/24 spironolactone 50 mg tablet 50 mg PO DAILY 04/25/24 04/25/24 aspirin 81 mg tablet,delayed mg 08/06/24 release cilostazol 100 mg tablet mg 08/06/24 estradiol 0.01% (0.1 mg/gram) vaginal 08/06/24 vaginal cream Previous Rx's ?Medication ?Instructions ?Recorded Lactobacillus acidophilus, 1 packet PO BID 30 days #60 ea 01/01/23 bulgar[place] 100 million cell granules packet (Floranex) Allergies Allergy/AdvReac Type Severity Reaction Status Date / Time promethazine (From Phenergan) Allergy Severe Agitated Verified 07/07/24 11:44 levofloxacin AdvReac Severe Drowsy Verified 07/07/24 11:44 Penicillins AdvReac Severe Unknown Verified 07/07/24 11:44 Antihistamines - Alkylamine AdvReac Intermediate Unknown Verified 07/07/24 11:44 Opioid HPI Opioid Management Most Recent Pain and Opioid Data: Last Pain Scale 5 Today, 20:29 Last ORT Total Score 0 04/24/24, 18:17 Last ORT Risk Category Low Risk 04/24/24, 18:17 Review of Systems ROS Status of ROS 10 or more systems reviewed and unremarkable except as noted in history and below [facility] Medical History (Updated 08/06/24 @ 20:48 by Phuc Castañeda MD) Colitis ?K52.9 - Noninfective gastroenteritis and colitis, unspecified (ICD-10) Cataracts, bilateral ?H26.9 - Unspecified cataract (ICD-10) HTN (hypertension) ?I10 - Essential (primary) hypertension (ICD-10) Hypomagnesemia ?E83.42 - Hypomagnesemia (ICD-10) Peripheral edema ?R60.0 - Localized edema (ICD-10) GERD (gastroesophageal reflux disease) ?K21.9 - Gastro-esophageal reflux disease without esophagitis (ICD-10) IBD (inflammatory bowel disease) ?K52.9 - Noninfective gastroenteritis and colitis, unspecified (ICD-10) CAD (coronary artery disease) ?I25.10 - Atherosclerotic heart disease of [place] coronary artery without angina pectoris (ICD-10) 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 (ICD-10) Cholecystectomy planned Cataract ?H26.9 - Unspecified cataract (ICD-10) Acute hypokalemia ?E87.6 - Hypokalemia (ICD-10) Clostridium difficile colitis ?A04.72 - Enterocolitis due to Clostridium difficile, not specified as recurrent (ICD-10) Acute dehydration ?E86.0 - Dehydration (ICD-10) Acute pain of right shoulder ?M25.511 - Pain in right shoulder (ICD-10) Acute hyponatremia ?E87.1 - Hypo-osmolality and hyponatremia (ICD-10) Urinary tract infection ?N39.0 - Urinary tract infection, site not specified (ICD-10) Altered mental status ?R41.82 - Altered mental status, unspecified (ICD-10) Surgical History Hx of cholecystectomy ?Z90.49 - Acquired absence of other specified parts of digestive tract (ICD-10) History of ERCP ?Z98.890 - Other specified postprocedural states (ICD-10) S/P femoral-femoral bypass surgery ?Z95.828 - Presence of other vascular implants and grafts (ICD-10) History of hysterectomy ?Z90.710 - Acquired absence of both cervix and uterus (ICD-10) 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 - Presence of aortocoronary bypass graft (ICD-10) History of left hip replacement ?Z96.642 - Presence of left artificial hip joint (ICD-10) S/P CABG x 5 ?Z95.1 - Presence of aortocoronary bypass graft (ICD-10) Family History Father Family history of CHF (congestive heart failure) Family history of hypertension Brother Family history of cancer Sister Family history of cancer Family history of myocardial infarction Mother Family history of hypertension Family history of stroke Social History Within the past year, how often did you have a drink containing alcohol: monthly or less Within the past year, how many standard drinks containing alcohol did you have on a typical day: 1 or 2 Within the past year, how often did you have six or more drinks on one occasion: never Total score: 0 Score interpretation: A score less than 3 is consistent with normal alcohol consumption. Smoking status: Never smoker Non-prescribed substance use: denies use Highest level of school completed/degree received: 10th grade Are you now , , , , never or living with a partner: In a typical week, how many times do you talk on the telephone with family, friends, or neighbors: twice per week How often do you get together with friends or relatives: twice per week How often do you attend episcopalian or alevism services: never Do you belong to any clubs or organizations such as episcopalian groups unions, fraternal or athletic groups, or school groups: no Total score: 1 Score interpretation: A score of less than or equal to 1 indicates the most socially isolated. Little interest or pleasure in doing things: not at all Feeling down, depressed, or hopeless: not at all Exam Constitutional Vital Signs, click to edit/add: Last Vital Signs Temp 97.7 F 08/06/24 20:29 Pulse 75 08/06/24 20:29 Resp 16 08/06/24 20:29 BP 138/66 08/06/24 20:29 Pulse Ox 99 08/06/24 20:29 O2 Del Method Room Air 08/06/24 20:29 Common normals: no apparent distress, average body habitus, oriented x3, no limitations, healthy appearing, alert and well nourished [facility] Common normals: normocephalic and head/scalp atraumatic Eye Common normals: EOMs intact bilaterally and conjunctivae normal Respiratory Common normals: normal respiratory effort, no retractions, no use of accessory muscles and clear to auscultation bilaterally Cardio Common normals: regular rate, regular rhythm, S1 normal heart sound and S2 normal heart sound Extremity Other: lelia red color of right foot and ankle. Foot is cool. It is not dusky . trace edema. Both feet are lelia red. Right foot is tender(normal tenderness per patient) Neuro Common normals: oriented x3, CN's II-XII intact bilaterally, moves all extremities and no focal motor deficits Psych Appearance: grossly normal Course Vital Signs Vital signs: Vital Signs Temperature 97.7 F 08/06/24 20:29 Pulse Rate 75 08/06/24 20:29 Respiratory Rate 16 08/06/24 20:29 Blood Pressure 138/66 08/06/24 20:29 Pulse Oximetry 99 08/06/24 20:29 Oxygen Delivery Method Room Air 08/06/24 20:29 Temperature 97.7 F 08/06/24 20:29 Pulse Rate 75 08/06/24 20:29 Respiratory Rate 16 08/06/24 20:29 Blood Pressure 138/66 08/06/24 20:29 Pulse Oximetry 99 08/06/24 20:29 Oxygen Delivery Method Room Air 08/06/24 20:29 MDM - Extremity Injury (Lower) MDM Narrative Medical decision making narrative: patient with known PAD bilat lower ext. Family became concerned tonight because of transient blotchy purple discoloration of the foot. Foot is now lelia red, tender with mild swelling as usual. Started on pletal 100 bid 2 weeks ago by vascular surgery. Follow up planned within the next 2 weeks. Discussed findings with the patient and her daughter. Questions answered. No intervention at this time as she is at her baseline. She is to follow up with vascular surgery as planned Discharge Plan Discharge Chief Complaint: Extremity Injury, Lower Clinical Impression: PAD (peripheral artery disease) Patient Disposition: Home, Self-Care Prescriptions / Home Meds: No Action cilostazol 100 mg tablet aspirin 81 mg tablet,delayed release (DR/EC) estradiol 0.01 % (0.1 mg/gram) cream VAGINAL simvastatin 40 mg tablet 40 mg PO DAILY acetaminophen 500 mg tablet 1,000 mg PO Q6H PRN (Reason: pain) budesonide 3 mg capsule,delayed,extend.release 3 mg PO DAILY zinc gluconate 50 mg tablet 50 mg PO DAILY cholecalciferol (vitamin D3) [D3 DOTS] 50 mcg (2,000 unit) tablet 50 mcg PO DAILY melatonin 5 mg tablet 5 mg PO DAILY loperamide [Imodium A-D] 2 mg capsule 2 mg PO Q4H Rx Instructions: administer after each loose stool until symptoms controlled; do not exceed 8 mg per 24 hrs Lactobacillus acidoph-L.bulgar [Floranex] 100 million cell Granules In Packet 1 packet PO BID 30 Days Qty: 60 11RF pantoprazole 20 mg tablet,delayed release (DR/EC) 20 mg PO DAILY nebivolol 10 mg tablet 10 mg PO DAILY multivitamin [Daily Multi-Vitamin] Tablet 1 tab PO DAILY gabapentin 100 mg capsule 100 mg PO Q12H bismuth subsalicylate [Bismuth] 262 mg tablet,chewable 3 tab PO DAILY clopidogrel 75 mg tablet 75 mg PO DAILY spironolactone 50 mg tablet 50 mg PO DAILY Print Language: Maltese Instructions: Peripheral Artery Disease (ED) Additional Instructions: follow up with Your vascular surgeon Referrals: Shirlene Vergara MD [Primary Care Provider, Family Practice] - 1 week
--- NOTE | 2024-08-06 20:47 | PC.NURSE ---
Pain to right foot with intermittent swelling and redness. Patient has history of PAD with attempted fem pop, was started recently on Pletal for same complaint.
== END 2024-08-06 21:05 | disposition home or self-care (01) ==
PROVIDERS: Emergency Provider Internal Medicine; PCP Family Medicine
DX: I73.9 Peripheral vascular disease, unspecified (principal); Z90.49 Acquired absence of other specified parts of digestive tract; Z95.828 Presence of other vascular implants and grafts; Z90.710 Acquired absence of both cervix and uterus; Z95.1 Presence of aortocoronary bypass graft; Z96.642 Presence of left artificial hip joint
CPT/HCPCS: 99281

== ENCOUNTER 2024-08-18 07:48 | Emergency (ER) | payer MEDICARE, BC, SELFPAY ==
[2024-08-18] VITALS (76 sets, daily range): BP systolic 124–203; BP diastolic 50–96; PULSE 55–76; O2SAT 63–100; BMI 28.2
--- NOTE | 2024-08-18 07:50 | ECG_ITS ---
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: : [id number] Requested By: [id number] Order Number: [id number] Reading MD: MIESHA GAVIN Measurements Intervals Sigurd Rate: 66 P: 19 LA: 156 QRS: -71 QRSD: 152 T: 59 QT: 420 QTc: 434 Interpretive Statements 1100 Sinus rhythm 2450 Right bundle branch block 3414 Cannot rule out septal myocardial infarction, age undetermined 5234 Left ventricular hypertrophy with repolarization abnormality 7200 Abnormal left axis deviation 0102 ARTIFACT PRESENT 9150 abnormal ECG Compared to ECG 07/07/2024 12:36:18 Myocardial infarct finding now present Early repolarization now present Left-axis deviation now present Left anterior fascicular block no longer present Electronically Signed On 08-22-2024 16:09:38 EDT by MIESHA GAVIN
[2024-08-18] MEDS: MORPHINE SULFATE 2 MG/ML SYRINGE IV (08:09)
--- NOTE | 2024-08-18 08:10 | PC.NURSE ---
assumed care for this pt
[2024-08-18] MEDS: HYDROMORPHONE HCL 1 MG/ML CARTRIDGE IV ×2 (08:21→10:39)
[2024-08-18 08:22] LABS: Hematocrit 27.8 % (36.0-48.0); Hemoglobin 8.8 g/dL (12.0-16.0); Immature Granulocytes Abs Auto 0.03 10^3/uL (0.00-0.03); Immature Granulocytes Pct Auto 0.3 % (0.0-0.5); Lymphocytes Absolute Auto 1.6 10^3/uL (1.2-3.8); Mean Corpuscular HGB Conc 31.7 g/dL (29.9-35.2); Mean Corpuscular Hemoglobin 28.8 pg (26.7-34.0); Mean Corpuscular Volume 90.8 fL (81.0-99.0); Platelet Count 384 10^3/uL (150-450); Red Blood Count 3.06 10^6/uL (4.20-5.40); White Blood Count 9.6 10^3/uL (4.0-11.0)
[2024-08-18 08:50] LABS: Alanine Aminotransferase 18 U/L (14-59); Albumin Globulin Ratio 0.7; Albumin Level 2.8 g/dL (3.4-5.0); Alkaline Phosphatase 30 U/L (46-116); Anion Gap 15.3; Aspartate Amino Transferase 16 U/L (15-37); Blood Urea Nitrogen 50.0 mg/dL (7.0-18.0); Calcium 9.8 mg/dL (8.5-10.1); Carbon Dioxide 24.2 mmol/L (21.0-32.0); Chloride 109 mmol/L (98-107); Estimated GFR (African America 46 (>=60 mL/min/1.73m^2); Estimated GFR (Non-African Ame 38 (>=60 mL/min/1.73m^2); Globulin 4.1 g/dL; Glucose 92 mg/dL (74-106); Potassium 4.5 mmol/L (3.5-5.1); Sodium 144 mmol/L (136-145); Total Protein 6.9 g/dL (6.4-8.2)
--- NOTE | 2024-08-18 08:50 | ED.LOWEXI1 ---
HPI HPI - Extremity Injury (Lower) General Chief Complaint: Extremity Injury, Lower Stated Complaint: LOWER EXTREMITY PAIN Time Seen by Provider: 08/18/24 07:50 Source: patient Mode of arrival: ambulance Limitations: no limitations History of Present Illness HPI Narrative: The patient have a known history of coronary artery disease as well as peripheral vascular disease and hypertension and chronic kidney disease, is coming to the ER after she noted the swelling in the right knee mostly posteriorly. This started this morning there was no history of fall or trauma. Patient really had a history of hemic changes to her right lower extremity after her vascular surgeon evaluated her almost a week ago for the same reason. The patient have a blockage of the graft that was placed in the femoral. But never had any swelling in the posterior aspect of the right knee like today Patient is coming to us with 10 out of 10 pain and in distress due to that on arrival Related Data Home Medications ?Medication ?Instructions ?Recorded ?Confirmed simvastatin 40 mg tablet 40 mg PO DAILY 09/27/22 08/06/24 acetaminophen 500 mg tablet 1,000 mg PO Q6H PRN pain 12/29/22 04/24/24 budesonide 3 mg 3 mg PO DAILY 12/29/22 08/06/24 capsule,delayed,extended release cholecalciferol (vitamin D3) 50 50 mcg PO DAILY 12/29/22 04/24/24 mcg (2,000 unit) tablet (D3 DOTS) loperamide 2 mg capsule (Imodium 2 mg PO Q4H 12/29/22 08/06/24 A-D) melatonin 5 mg tablet 5 mg PO DAILY 12/29/22 08/06/24 zinc gluconate 50 mg tablet 50 mg PO DAILY 12/29/22 08/06/24 pantoprazole 20 mg tablet,delayed 20 mg PO DAILY 07/25/23 08/06/24 release bismuth subsalicylate 262 mg 3 tab PO DAILY 04/07/24 04/24/24 chewable tablet (Bismuth) gabapentin 100 mg capsule 100 mg PO Q12H 04/07/24 04/24/24 multivitamin (Daily Multi-Vitamin 1 tab PO DAILY 04/07/24 08/06/24 tablet) nebivolol 10 mg tablet 10 mg PO DAILY 04/07/24 08/06/24 clopidogrel 75 mg tablet 75 mg PO DAILY 04/25/24 08/06/24 spironolactone 50 mg tablet 50 mg PO DAILY 04/25/24 08/06/24 aspirin 81 mg tablet,delayed mg 08/06/24 release cilostazol 100 mg tablet mg 08/06/24 estradiol 0.01% (0.1 mg/gram) vaginal 08/06/24 vaginal cream Previous Rx's ?Medication ?Instructions ?Recorded Lactobacillus acidophilus, 1 packet PO BID 30 days #60 ea 01/01/23 bul[place] 100 million cell granules packet ([employer]) Allergies Allergy/AdvReac Type Severity Reaction Status Date / Time promethazine (From Phenergan) Allergy Severe Agitated Verified 07/07/24 11:44 levofloxacin AdvReac Severe Drowsy Verified 07/07/24 11:44 Penicillins AdvReac Severe Unknown Verified 07/07/24 11:44 Antihistamines - Alkylamine AdvReac Intermediate Unknown Verified 07/07/24 11:44 Opioid HPI Opioid Management Most Recent Pain and Opioid Data: Last Pain Scale 2 Today, 17:32 Last ED Pain Assessment Today, 08:50 Last ORT Total Score 0 04/24/24, 18:17 Last ORT Risk Category Low Risk 04/24/24, 18:17 Review of Systems ROS Status of ROS 10 or more systems reviewed and unremarkable except as noted in history and below [facility] Medical History (Updated 08/18/24 @ 17:12 by lCementina Madera MD) Colitis ?K52.9 - Noninfective gastroenteritis and colitis, unspecified (ICD-10) Cataracts, bilateral ?H26.9 - Unspecified cataract (ICD-10) HTN (hypertension) ?I10 - Essential (primary) hypertension (ICD-10) Hypomagnesemia ?E83.42 - Hypomagnesemia (ICD-10) Peripheral edema ?R60.0 - Localized edema (ICD-10) GERD (gastroesophageal reflux disease) ?K21.9 - Gastro-esophageal reflux disease without esophagitis (ICD-10) IBD (inflammatory bowel disease) ?K52.9 - Noninfective gastroenteritis and colitis, unspecified (ICD-10) CAD (coronary artery disease) ?I25.10 - Atherosclerotic heart disease of lime coronary artery without angina pectoris (ICD-10) 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 (ICD-10) Cholecystectomy planned Cataract ?H26.9 - Unspecified cataract (ICD-10) Acute hypokalemia ?E87.6 - Hypokalemia (ICD-10) Clostridium difficile colitis ?A04.72 - Enterocolitis due to Clostridium difficile, not specified as recurrent (ICD-10) Acute dehydration ?E86.0 - Dehydration (ICD-10) Acute pain of right shoulder ?M25.511 - Pain in right shoulder (ICD-10) Acute hyponatremia ?E87.1 - Hypo-osmolality and hyponatremia (ICD-10) Urinary tract infection ?N39.0 - Urinary tract infection, site not specified (ICD-10) Altered mental status ?R41.82 - Altered mental status, unspecified (ICD-10) Surgical History Hx of cholecystectomy ?Z90.49 - Acquired absence of other specified parts of digestive tract (ICD-10) History of ERCP ?Z98.890 - Other specified postprocedural states (ICD-10) S/P femoral-femoral bypass surgery ?Z95.828 - Presence of other vascular implants and grafts (ICD-10) History of hysterectomy ?Z90.710 - Acquired absence of both cervix and uterus (ICD-10) 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 - Presence of aortocoronary bypass graft (ICD-10) History of left hip replacement ?Z96.642 - Presence of left artificial hip joint (ICD-10) S/P CABG x 5 ?Z95.1 - Presence of aortocoronary bypass graft (ICD-10) Family History Father Family history of CHF (congestive heart failure) Family history of hypertension Brother Family history of cancer Sister Family history of cancer Family history of myocardial infarction Mother Family history of hypertension Family history of stroke Social History Within the past year, how often did you have a drink containing alcohol: monthly or less Within the past year, how many standard drinks containing alcohol did you have on a typical day: 1 or 2 Within the past year, how often did you have six or more drinks on one occasion: never Total score: 0 Score interpretation: A score less than 3 is consistent with normal alcohol consumption. Smoking status: Never smoker Non-prescribed substance use: denies use Highest level of school completed/degree received: 10th grade Are you now , , , , never or living with a partner: In a typical week, how many times do you talk on the telephone with family, friends, or neighbors: twice per week How often do you get together with friends or relatives: twice per week How often do you attend sikhism or muslim services: never Do you belong to any clubs or organizations such as sikhism groups unions, fraternal or athletic groups, or school groups: no Total score: 1 Score interpretation: A score of less than or equal to 1 indicates the most socially isolated. Little interest or pleasure in doing things: not at all Feeling down, depressed, or hopeless: not at all Exam Narrative Exam Narrative: Nurses notes and vital signs reviewed and patient is not hypoxic. Lower extremity examination: The patient left leg examination shows that she have warmth and no skin changes while in the right foot examination showed that the patient have not dopplerable pulse mostly the anterior pulse and the patient has cold and discolored appearance that according to the daughter at the bedside has been going on at least for a week, but there is a almost 4 cm swelling on the posterior aspect of the knee on the right side it is not pulsating but you can detect as well and pulse with the Doppler The patient also have another swelling that almost 3 cm in the posterior aspect of the calf mostly in just lateral to that swelling. Most of the swelling are tender but the patient still have full range of movement No signs of redness hotness or any signs of infection General: Well-appearing and in no apparent distress. Skin: Warm, dry, no pallor noted. No rash. Head: Normocephalic, atraumatic. Neck: Supple, non-tender. Eye: Pupils are equal, round and EOMI. No scleral icterus. Cardiovascular: Regular Rate and Rhythm without murmur, gallop or rub. Respiratory: No accessory muscle use or respiratory distress. Lungs are clear to auscultation, no wheezing, rales or rhonchi Chest Wall: no tenderness Back: No midline thoracic or lumbar vertebral tenderness. No CVA tenderness GI: Abdomen is soft, non-distended. Normal bowel sounds. No masses appreciated. No tenderness to palpation. No rebound, guarding, or rigidity noted. Constitutional Vital Signs, click to edit/add: Last Vital Signs Pulse 67 08/18/24 07:57 Resp 24 H 08/18/24 07:57 BP 203/94 H 08/18/24 07:57 Pulse Ox 96 08/18/24 07:57 O2 Del Method Room Air 08/18/24 07:57 Course Vital Signs Vital signs: Vital Signs Pulse Rate 67 08/18/24 07:57 Respiratory Rate 24 H 08/18/24 07:57 Blood Pressure 203/94 H 08/18/24 07:57 Pulse Oximetry 96 08/18/24 07:57 Oxygen Delivery Method Room Air 08/18/24 07:57 Pulse Rate 67 08/18/24 07:57 Respiratory Rate 24 H 08/18/24 07:57 Blood Pressure 203/94 H 08/18/24 07:57 Pulse Oximetry 96 08/18/24 07:57 Oxygen Delivery Method Room Air 08/18/24 07:57 MDM - Extremity Injury (Lower) MDM Narrative Medical decision making narrative: The patient EKG showing sinus rhythm with a heart rate of [address] elevation or depression Upon arrival there was a concern of an acute ischemic event but the patient daughter at the bedside mentioned that this changes in her foot was not an acute issue and that the patient apparently was evaluated for that by her vascular surgeon where she was diagnosed with occlusion of the graft in the right femoral, the patient swelling though in the right posterior aspect of the knee is new according to the daughter. The patient CBC and chemistry showed no acute significant changes her creatinine is 1.3 and not different than her baseline and the patient have a consistent dropping in the hemoglobin with her last hemoglobin was above 10 and today it is 8.8 The patient initially had her case discussed with Dr. Kirkland who is a vascular surgeon taking care of the patient and he requested the patient to have an arterial Doppler which was done but was not enough to diagnose any acute finding of that swelling in the posterior aspect of the knee as after discussion with the radiologist this fusiform swelling could be pseudoaneurysm that is clotted or hematoma and she requested patient to get a CAT scan for further evaluation Patient case discussed again with and he requested a CAT scan angio abdomen and pelvis with aortic runoff, patient also was provided with IV fluids to prevent any further kidney damage The patient CT angio of the abdomen pelvis with aortic runoff was not conclusive for what exactly the swelling behind the right calf area and I did discuss the case with Dr. Kirkland and he requested the patient to be transferred to [facility] under the care of for further evaluation of the swelling Right now the patient case discussed with in [facility] and he accepted the patient Lab Data Labs: Lab Results 08/18/24 Range/Units 08:15 WBC 9.6 (4.0-11.0) 10^3/uL RBC 3.06 L (4.20-5.40) 10^6/uL Hgb 8.8 L (12.0-16.0) g/dL Hct 27.8 L (36.0-48.0) % MCV 90.8 (81.0-99.0) fL MCH 28.8 (26.7-34.0) pg MCHC 31.7 (29.9-35.2) g/dL RDW 17.3 H (11.0-15.0) % Plt Count 384 (150-450) 10^3/uL MPV 8.9 L (9.5-13.5) fL Neut % (Auto) 69.4 (43.0-75.0) % Lymph % (Auto) 17.1 L (20.5-60.0) % Dewitt % (Auto) 12.1 H (1.7-12.0) % Eos % (Auto) 0.6 L (0.9-7.0) % Baso % (Auto) 0.5 (0.2-2.0) % Neut # (Auto) 6.6 H (1.4-6.5) 10^3/uL Lymph # (Auto) 1.6 (1.2-3.8) 10^3/uL Dewitt # (Auto) 1.2 H (0.3-0.8) 10^3/uL Eos # (Auto) 0.1 (0.0-0.7) 10^3/uL Baso # (Auto) 0.1 (0.0-0.1) 10^3/uL Abs Immat Gran (auto) 0.03 (0.00-0.03) 10^3/uL Imm/Tot Granulo (auto) 0.3 (0.0-0.5) % Discharge Plan Discharge Chief Complaint: Extremity Injury, Lower Clinical Impression: Peripheral arterial disease, Localized swelling of right lower leg, Intractable pain, Ischemia of right lower extremity Patient Disposition: [facility]
[2024-08-18 09:00] LABS: Lactate/Lactic Acid 1.4 mmol/L (0.4-2.0)
--- NOTE | 2024-08-18 09:27 | PC.NURSE ---
Dr Kirkland's office calls to gather information about pt
--- NOTE | 2024-08-18 09:54 | PC.NURSE ---
US at bedside
--- NOTE | 2024-08-18 10:45 | PC.NURSE ---
pt medicated per order, oxygen initiated for pt comfort nc
--- NOTE | 2024-08-18 13:14 | CT_ITS ---
The [address] [address] Patient Name: SAGE HSU MRN: [id number] date: 1935 Sex: F Assigned Patient Location: ER Current Patient Location: ER Accession/Order Number: [id number] Exam Date: 08/18/2024 15:55 Report Date: 08/18/2024 16:18 At the request of: KRYSTA BENAVIDES MD Procedure: CT angio abd aorta runoff CTA abdomen, pelvis, and bilateral lower extremities . CLINICAL DATA: Right knee pain with swelling, purple first digit right foot, right ischemic changes. TECHNIQUE: Intravenous contrast-enhanced CT angiography of the abdomen, pelvis, and bilateral lower extremities was performed. Axial, sagittal, coronal, and 3D-dimensional reconstructions were created and reviewed. This CT exam was performed using one or more of the following dose reduction techniques: Automated exposure control, adjustment of the mA and/or kV according to patient size, or use of iterative reconstruction technique. COMPARISON: CT abdomen and pelvis 04/28/2024 FINDINGS: Organs:Suspected atrophic pancreas with ductal dilatation. This may be related to chronic pancreatitis, correlate with history. Otherwise MRCP consider outpatient basis. There is enlargement of the biliary tree involving the liver, duct possibly related to physiologic ectasia. Correlate with LFTs if elevated, ERCP or MRCP may beneficial. This measures 1.3 cm.[Otherwise the liver, visualized spleen unremarkable. GI: Mild to moderate retained stool. Colonic diverticulosis. No definite bowel obstruction.[ Pelvis:[Bladder grossly unremarkable. Peritoneum/Retroperitoneum:No free air or free fluid. No adenopathy. Moderate severe calcific plaque involving the nonaneurysmal aorta. Moderate severe plaque involving mesenteric vessels no critical narrowing. Severe disease both common iliac vessels. Moderate disease involving the internal and external iliac vessels. Short segment likely occlusion versus critical narrowing involving the left internal iliac noted on image 70. [ Abd wall/Bones:Multilevel degenerative changes.[Artifact from hip arthroplasty hardware degrades evaluation of pelvic contents. Lower extremities: Severe diffuse calcified plaque degrades evaluation of the vasculature. There is a right sided bypass graft extends at the level of the right femoral artery to the level of the popliteal fossa. This is occluded throughout its course. Suspected compression the level of the knee. Along the course of the graft, there is circumferential soft tissue attenuation noted of uncertain clinical significance. There is circumferential soft tissue attenuation appears greatest level of the popliteal region with slight lobulated appearance measuring 7 x 4.8 cm. Otherwise right foraminal artery SFA and profunda patent with severe disease involving the SFA with diffuse calcific densities. There is occlusion of the right SFA/popliteal artery level at the of the knee. At the level of the three-vessel runoff right lower extremity, suspected minimal proximal reconstitution likely due to muscular collaterals. Which appears to have minimal flow to the level of the right mid calf without runoff into the dorsalis pedis. Left lower extremity: Severe diffuse disease identified question short segment SFA narrowing mid thigh as on image 166 however the runoff to the left lower extremity appears to extend through the posterior tibialis L2 level identified. CT/CT angio abd aorta runoff IMPRESSION: Severe calcific plaque identified throughout both lower extremities degrades evaluation. Evidence of prior right-sided by pass grafting from the femoral artery to the popliteal artery appears occluded with abnormal circumferential soft tissue attenuation noted of uncertain clinical significance. Correlate with timing of procedure Occlusion right [place] popliteal artery at the level of the knee. Suspect minimal vascular reconstitution right calf basilar three-vessel runoff due to intramuscular collaterals over this appears be excluded the level of the mid calf. Atrophic appearance of the pancreas with dilatation of the common bile duct and pancreatic duct. Correlate with LFTs and history. If warranted, MRCP may beneficial. Impression dictated by: Anibal Chavez M.D. 08/18/2024 4:18 PM Dictation Location: [place] [address] Electronically authenticated by: [id number] Y Date: 08/18/2024 16:18
[2024-08-18] MEDS: 0.9 % SODIUM CHLORIDE 1,000 ML 1000 ML IV (14:24)
[2024-08-18] MEDS: HYDROMORPHONE HCL 0.5 MG/0.5 ML SYRINGE IV ×2 (14:26→17:14)
--- NOTE | 2024-08-18 15:23 | PC.NURSE ---
Report given to Mark CHAIDEZ at [facility]
--- NOTE | 2024-08-18 16:32 | PC.NURSE ---
pt placed on bedpan, she had small amount of urine out, pt isaura area cleansed with soap and water, new brief placed
[2024-08-18] MEDS: HYDROMORPHONE HCL 1 MG/ML CARTRIDGE 0.5 MG IVP (19:47)
[2024-08-19] VITALS: O2SAT 100
[2024-08-19] MEDS: HYDROMORPHONE HCL 1 MG/ML CARTRIDGE IVP (00:28)
[2024-08-19 01:00] VITALS: O2SAT 100
[2024-08-19 01:27] VITALS: O2SAT 99
[2024-08-19 01:31] VITALS: BP 135/52
--- NOTE | 2024-08-19 01:35 | PC.NURSE ---
[facility] arrives at this time for transport.
--- NOTE | 2024-08-19 01:49 | PC.NURSE ---
Report called to nurse Olman RN at [facility].
== END 2024-08-19 01:50 | disposition short-term general hospital (02) ==
PROVIDERS: Emergency Provider Emergency Medicine; PCP Family Medicine
DX: I70.222 Atherosclerosis of native arteries of extremities with rest pain, left leg (principal); R60.0 Localized edema; M79.604 Pain in right leg; I25.10 Atherosclerotic heart disease of native coronary artery without angina pectoris; I12.9 Hypertensive chronic kidney disease with stage 1 through stage 4 chronic kidney disease, or unspecified chronic kidney disease; N18.9 Chronic kidney disease, unspecified; Z90.49 Acquired absence of other specified parts of digestive tract; Z90.710 Acquired absence of both cervix and uterus; Z95.828 Presence of other vascular implants and grafts; Z95.1 Presence of aortocoronary bypass graft; Z96.642 Presence of left artificial hip joint
CPT/HCPCS: 36415; 75635; 80053; 83605; 85025; 93005; 93926; 96374; 96375; 96376; 99285; J1171; J2270; Q9967

== ENCOUNTER 2024-10-25 13:57 | Outpatient (OUT) | payer MEDICARE, BC, SELFPAY ==
--- OUTSIDE RECORDS SUMMARY | 2024-10-13 13:20 | XMS_ITS | Encounter Summary ---
Author Organization [employer] [facility] tem Address [id number] [address] [place] [address] Care Team Providers Care Sanitary Chemist Name Role Phone Shirlene Vergara MD Primary Care Provider [phone] Reason for Referral * Misc (Routine) - Authorized Specialty Diagnoses / Procedures Referred By Contac t Referred To Contact Diagnoses Hematoma of arm, left, initial encounter Procedures Adaptic Delicia Rivera APRN-CNP [address] [place] [address] Phone: tel: fax: Referral ID Status Reason Start Date Expiration Date V isits Requested Visits Authorized [id number] Authorized 10/13/2024 10/13/2025 1 1 * Misc (Routine) - Authorized Specialty Diagnoses / Procedures Referred By Contac t Referred To Contact Diagnoses Hematoma of arm, left, initial encounter Procedures Iodoform packing strip Delicia Rivera APRN-CNP [address] [place] [address] Phone: tel: fax: Referral ID Status Reason Start Date Expiration Date V isits Requested Visits Authorized [id number] Authorized 10/13/2024 10/13/2025 1 1 Reason for Visit * Reason Comments Wound Check Encounter Details Date Type Department Care Team (Peggy st Contact Info) Description 10/13/2024 1:20 PM EDT Office Visit [facility] [address] [place] [id number] Delicia Rivera, CHARIS-LIS [address] [place] [address] Hematoma of arm, left, subsequent encounter (Primary Dx) Social History Tobacco Use Types Packs/Day Years Used Date Smoking Tobacco: Former Cigarettes Q uit: 12/30/1993 Smokeless Tobacco: Never Comments:QUIT IN 1989 Alcohol Use Standard Drinks/Week Comments Yes 1 (1 standard drink = 0.6 oz pur e alcohol) monthly [facility] Utilities Answer Date Recorded In the past 12 months has [employer], gas, oil, or water [employer] threatened to shut off services in your home? No 08/20/2024 AUDIT-C Answer Date Recorded Q1: How often do you have a drink containing alcohol? Never 08/20/2024 Q2: How many drinks containi ng alcohol do you have on a typical day when you are drinking? Patient does not drink Q3: How often do you have si x or more drinks on one occasion? Never 08/20/2024 Overall Financial Resource Strain (CARDIA) Answe r Date Recorded How hard is it for you to pa y for the very basics like food, housing, medical care, and heating? Not hard at all 11/18/2023 PHQ-2 Answer Date Recorded Total Score 0 08/20/2024 PRAPARE - Transportation Answer Date Re corded In the past 12 months, has l ack of transportation kept you from medical appointments or from getting medications? No 08/08 In the past 12 months, has l ack of transportation kept you from meetings, work, or from getting things needed for daily living? No 08/20/2024 Housing Instability Answer Date Recorde d Are you worried or concerned that in the next two months you may not have stable housing that you own, rent or stay in as a part of a household? No 08/20/2024 Childcare Answer Date Recorded Childcare Unknown 07/20/2018 Employment Answer Date Recorded Employment Unknown 07/20/2018 Hunger Screening Answer Date Recorded Within the past 12 months we worried whether our food would run out before we got money to buy more. Never True 10/03/2024 Within the past 12 months th e food we bought just didn't last and we didn't have money to get more. Never True 10/03/2024 Purpose - Life Answer Date Recorded Purpose and direction in life Unknown Comments No Sex and Gender Information Value Date Recorded Sex Assigned at Not on file Legal Sex Female 12:05 PM EDT Gender Identity Not on file Sexual Orientation Not on file documented as of this encounter Patient Instructions * Patient Instructions* Letty Sheldon RN - 10/13/2024 1:20 PM EDT [place] in [place] [facility] Treatment Plan Wound Location(s): Left posterior arm HOW TO CARE FOR YOUR WOUND The following should be performed Daily and as needed. STEP 1: Cleanse wound with Soap and water, rinse well, and pat dry. Irrigate or rinse wound with Saline (normal). STEP 2: Lightly pack with 1/4 inch Iodoform packing strip. Please pay attention to tunnel at 12 to 1 oclock. The tunnel was marked today at wound care with a surgical pen. STEP 4 Cover wound with abd pad, Gauze, then Rolled gauze. If dressing is sticking to wound bed may use a small piece of adaptic on top of wound. STEP 6: Secure dressings with an mckinley wrap. ACTIVITY: Avoid direct pressure to wound(s) at all times NUTRITION: High protein diet SKIN CARE: Moisturize all dry and intact skin SWELLING CONTROL: Keep arm elevated on pillow SUPPLIES: roll gauze, Iodoform, mckinley wrap. Current Date - 09/20/24 ITEMS TO FOLLOW UP ON: None Length Width Depth Wound 09/20/24 1 Traumatic Arm Left;Posterior-Wound Length (cm): 5.5 cm Wound 09/20/24 1 Traumatic Arm Left;Posterior-Wound Width (cm): 3 cm Wound 09/20/24 1 Traumatic Arm Left;Posterior-Wound Depth (cm): 0.5 cm Wound drainage Type Description small Sanguinous bloody documented in this encounter Progress Notes * Delicia Rivera, SUPERVISOR JEWELRY DEPARTMENT-SAIL LAY OUT WORKER - 10/13/2024 1:20 PM EDTAssociated Order(s): Debridement Post-Procedure Diagnose(s): Hematoma of arm, left, subsequent encounter Images from the original note were not included. Wound Care Progress Note Patient: Delicia Sanderson Date of : 1935 Chief Complaint: left arm open wound, follow up Subjective/HPI: Delicia is a 89 y.o. female who present to [facility] for evaluation of 1 ulcer(s) on the left lower forearm. Patient established with wound clinic 09/20/2024. Current wound care includes: pack with alginate roping, secure with roll gauze and stockinet. Received call from nursing facility 10/12/2024, with concern for increase in wound size and purulent drainage. Facility obtained a woundculture and started patient on Bactrim DS. Patient continues to follow with vascular surgery for critical limb ischemia of RLE. . Patient hospitalized 08/19/2024 through 09/07/2024 with the primary diagnosis of pulsating right lower extremity mass, secondary to infected graft status post explantation. Graft explant of the rightlower extremity, repair of femoral and popliteal artery was done [address] Kirkland. Patient/family reports a wound on her left forearm is the result of an infiltrated IV during hospitalization. Patient was discharged to a snf facility where she remains. Measurable wound changes: Increase in wound measurement and tunnel depth Previous area of hematoma de roofed. Patient accompanied by: family members X 2, patient arrives in wheelchair Nutritional screen shows patient does not take in three servings of protein per day. Patient does deny fever, chills, sweats or other symptoms of infection. Prescribed antibiotics: taking Bactrim DS as prescribed. Today's reported Blood sugar:N/A No results found for: HGBA1C Contributing comorbid conditions: PAD including right lower extremity critical limb ischemia. Labs/Imaging/Cardiovascular: Patient's chart was reviewed for all available supporting documentation, laboratory results and radiographic examination. 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 difficile colitis Chronic ulcer of lower extremity ([facility]) Non-pressure chronic ulcer of right lower leg, limited to breakdown of skin ([facility]) Chronic ulcer of right heel ([facility]) Closed fracture of neck of femur ([facility]) Complete tear of right rotator cuff Diarrhea Essential hypertension Gastroesophageal reflux disease Hip bursitis, left Hypercalcemia Hyperlipidemia Immunocompromised state Ingrown nail 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 ([facility]) 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 Other abnormalities of gait and mobility Recurrent Clostridioides difficile diarrhea Recurrent UTI Urge incontinence Venous insufficiency (chronic) (peripheral) 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 ([facility]) Peripheral vascular disease 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 ([facility]) Venous ulcer of right leg ([facility]) Critical limb ischemia of both lower extremities with rest pain ([facility]) Venous ulcer of ankle, right ([facility]) Encounter for therapeutic drug monitoring Critical limb ischemia of left lower extremity with rest pain ([facility]) 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 ([facility]) Aneurysm of artery of lower extremity Acute pain of right lower extremity Bacteremia Moderate protein-energy malnutrition Chronic venous 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 ([facility]) Elevated white blood cell count, unspecified Ischemic enteritis Pressure injury of right heel, unstageable ([facility]) Stasis edema with ulcer of both lower extremities ([facility]) Status post small bowel resection Hematoma of arm, left, initial encounter Past Medical History: Diagnosis Date Anesthesia complication [...] Hypertension Microscopic colitis PAD (peripheral artery disease) Peptic ulceration BLEEDING ULCER ADMITTED 2018 X13 DAYS TATYANA Rash Skin cancer REMOVED Sleep apnea No CPAP Thin skin Urinary tract infection CHRONIC, SEES ID EVERY 3 MONTHS Visual impairment Wound of ankle RIGHT SINCE 07/2023 Past Surgical History: Procedure Laterality Date ABDOMINAL SURGERY ANGIOGRAM EXTREMITY LOWER Right 01/01/2024 Performed by Deuce Kirkland MD at [facility] PROC ANGIOPLASTY ILIAC STENT PLACEMENT Right 01/01/2024 Performed by Deuce Kirkland MD at [facility] PROC ANGIOPLASTY ILIAC-ILIAC SHOCKWAVE INTRAVASCULAR LITHOTRIPSY Right 11/18/2023 Performed by Deuce Kirkland MD at [facility] PROC ARTHROSCOPY SHOULDER W/ OPEN ROTATOR CUFF REPAIR Left 2011 BOVINE PATCH ANGIOPLASTY CUTDOWN FEMORAL Right 01/01/2024 Performed by Deuce Kirkland MD at [facility] SPECIAL PROC BOVINE PATCH ANGIOPLASTY ILEOFEMORAL Right 01/01/2024 Performed by Deuce Kirkland MD at [facility] SPECIAL PROC BYPASS ARTERY FEMORAL BELOW KNEE POPLITEAL W/ VEIN PATCH/ HIGH GSV LIGATION AND HARVEST Right 01/01/2024 Performed by Deuce Kirkland MD at [facility] PROC CARDIAC SURGERY CATARACT EXTRACTION CHOLECYSTECTOMY N/A 2008 CORONARY ARTERY BYPASS GRAFT 1999 x 5 ENDARTERECTOMY FEMORAL AND ILIOFEMORAL ENDARTERECTOMY Right 01/01/2024 Performed by Deuce Kirkland MD at [facility] PROC EYE SURGERY GRAFT EXPLANT - RIGHT LOWER EXTREMITY/ REPAIR OF FEMORAL AND POPLITEAL ARTERY Right 08/22/2024 Performed by Deuce Kirkland MD at [facility] HERNIA REPAIR N/A 03/2012 HIP FRACTURE SURGERY Left 05/2017 HYSTERECTOMY N/A JOINT REPLACEMENT lower ext angiogram Bilateral 01/07/2022 Performed by Taryn Belle MD at [facility] CARDIAC CATH LABS SCLEROTHERAPY LOWER EXTREMITY Right 12/24/2023 Performed by Deuce Kirkland MD at [facility] TOTAL HIP ARTHROPLASTY Left 2020 VASCULAR SURGERY Angiogram Social Drivers of Health Food Insecurity: No Food Insecurity (10/03/2024) Hunger Screening Food Insecurity - Worry: Never True Food Insecurity - Inability: Never True Housing Instability: Low Risk (08/20/2024) Housing Instability Housing Instability: No Transportation Needs: No Transportation Needs (08/20/2024) PRAPARE - Transportation Lack of Transportation (Medical): No Lack of Transportation (Non-Medical): No Utility Difficulties: Not At Risk (08/20/2024) [facility] Utilities Threatened with loss of utilities: No Interpersonal Safety: Not At Risk (08/20/2024) Humiliation, Afraid, Rape, and Kick questionnaire Fear of Current or Ex-Partner: No Emotionally Abused: No Physically Abused: No Sexually Abused: No Financial Resource Strain: Low Risk (11/18/2023) Overall Financial Resource Strain (CARDIA) Difficulty of Paying Living Expenses: Not hard at all Childcare: Unknown (07/20/2018) Childcare Childcare: Unknown Recent Concern: Childcare - High Risk (05/04/2018) Childcare Childcare: Unknown Employment: Unknown (07/20/2018) Employment Employment: Unknown Recent Concern: Employment - High Risk (05/04/2018) Employment Employment: Unknown Purpose - Life: Unknown (03/21/2020) Purpose - Life Purpose and direction in life: Unknown Depression: Not at risk (08/20/2024) PHQ-2 PHQ-2 Score: 0 Alcohol Use: Not At Risk (08/20/2024) AUDIT-C Frequency of Alcohol Consumption: Never Average Number of Drinks: Patient does not drink Frequency of Binge Drinking: Never Tobacco Use: Medium Risk (10/03/2024) Patient History Smoking Tobacco Use: Former Smokeless Tobacco Use: Never Passive Exposure: Not on file Social Connections: Not on file Physical Activity: Not on file Stress: Not on file Current Outpatient Medications Medication Sig Dispense Refill acetaminophen (TYLENOL EXTRA [...] by mouth in the morning. budesonide EC (ENTOCORT EC) 3 mg 24 hr capsule Take 1 capsule (3 mg total) by mouth in the morning. cholecalciferol, vitamin D3, (D3-50 CHOLECALCIFEROL ORAL) Take 1 tablet by mouth in the morning. cilostazoL (PLETAL) 50 mg tablet Take 1 tablet (50 mg total) by mouth in the morning and 1 tablet (50 mg total) before bedtime. clopidogreL (PLAVIX) 75 mg tablet Take 1 tablet (75 mg total) by mouth in the morning. Indications:treatment to prevent a heart attack. estradioL (ESTRACE) 0.01 % (0.1 mg/gram) vaginal cream as needed. loperamide (IMODIUM A-D) 2 mg tablet Take 2 tablets (4 mg total) by mouth as needed. melatonin 10 mg tablet Take 1 tablet by mouth nightly. xumwarme-hsui-GR-calcium &mins (THERAGRAN-M) 9 mg iron-400 mcg tablet Take 1 tablet by mouth inthe morning. nebivoloL (BYSTOLIC) 10 mg tablet Take 1 tablet (10 mg total) by mouth in the morning. Indications:high blood pressure. pantoprazole (PROTONIX) 40 mg EC tablet Take 20 mg by mouth in the morning. Indications: gastroesophageal reflux disease. simvastatin (ZOCOR) 40 mg tablet Take 1 tablet (40 mg total) by mouth in the morning. Indications: excessive fat in the blood. sulfamethoxazole-trimethoprim (BACTRIM DS) 800-160 mg per tablet Take 1 tablet by mouth in the morning and 1 tablet before bedtime. No current facility-administered medications for this visit. Allergies Allergen Reactions Nsaids (Non-Steroidal Anti-Inflammatory Drug) [...] (See Comments) JITTERY NOT ALLERGIC TO TYLENOL The following portions of the patient's history were reviewed and updated as appropriate: allergies, current medications, past family history, past medical history, past social history, past surgicalhistory, problem list, and medication reconciliation was completed including current medication andpost discharge medication. PAIN: Pain Scale 0/10: 0 Review of Systems Constitutional: Positive for fatigue. Negative for appetite change, chills and fever. HENT: Positive for hearing loss. Negative for trouble swallowing. Eyes: Negative. Respiratory: Positive for apnea (MARIO). Negative for cough, shortness of breath and stridor. Cardiovascular: Negative. Negative for chest pain, palpitations and leg swelling. Gastrointestinal: Negative. Negative for abdominal distention, abdominal pain, nausea and vomiting. Genitourinary: Negative. Negative for dysuria, frequency and urgency. Musculoskeletal: Positive for gait problem. Skin: Positive for color change, pallor and wound. Neurological: Positive for weakness. Negative for numbness. Hematological: Bruises/bleeds easily. Objective: Physical Exam Nursing note reviewed. Constitutional: Appearance: Normal appearance. She is well-developed. She is not ill-appearing. HENT: Head: Normocephalic and atraumatic. Cardiovascular: Rate and Rhythm: Normal rate. Rhythm irregular. Heart sounds: Murmur heard. No friction rub. Comments: Strong palpable left radial pulse Pulmonary: Effort: No respiratory distress. Breath sounds: Normal breath sounds. No wheezing. Musculoskeletal: General: Normal range of motion. Cervical back: Normal range of motion. Skin: General: Skin is warm and dry. Findings: Lesion present. No bruising. Neurological: Mental Status: She is alert and oriented to person, place, and time. Wound Assessment: Wound 09/20/24 1 Traumatic Arm Left;Posterior (Active) Wound Image Pre debridement Post debridement 10/13/24 133 Site Assessment Red;[place];Black 10/13/24 1332 Gertrude-wound Assessment [place];Blanchable erythema;Fragile 10/13/24 1332 Shape blocked 10/13/24 1332 Wound Length (cm) 5.5 cm 10/13/24 1400 Wound Width (cm) 3 cm 10/13/24 1400 Wound Surface Area (cm^2) 12.96 cm^2 10/13/24 1400 Wound Depth (cm) 0.5 cm 10/13/24 1400 Wound Volume (cm^3) 4.32 cm^3 10/13/24 1400 Change in Wound Size % -135.64 10/13/24 1400 Drainage Description Cano;Serosanguineous 10/13/24 1332 Drainage Amount Large Copious 10/13/24 1332 Treatments Cleansed with;Wound cleanser;Soak with;Vashe/Hypochlorous Acid 10/13/24 1332 Debridement Performed? Y 10/13/24 1400 Type of Debridement Selective 10/13/24 1400 Dressing Type Packing lodoform;Gauze;Abdominal dressing 10/13/24 1332 Undermining 1 (cm) 8.5 cm 10/13/24 133 Start: Undermining 1 Clock Position 12 o'clock 10/13/24 133 End: Undermining 1 Clock Position 1 o'clock 10/13/24 133 Debridement Performed by: XAVIER Patel Authorized by: XAVIER Patel Associated wounds: Wound 09/20/24 1 Traumatic Arm Left;Posterior Consent: Consent obtained: Verbal and written Consent given by: Patient Risks discussed: Yes Debridement Details: Performed by: PICK OUT HAND Type: Selective Tissue, Devitalized tissue and other material debrided: Clots and slough Anesthesia administration: topical Anesthesia: EMLA Total Surface Area Debrided cm^2: 12.96 Specimen Taken: None Other Specimen Taken: Pending wound culture obtained in nursing facility Instrument: Scissors Other Instrument: Moist swab Bleeding Control: Pressure Response to treatment: Procedure was tolerated well Tissue Applied?: No Assessment/Plan/Education: 1. Hematoma of arm, left, subsequent encounter Wash wound and periwound daily mild soap and water Irrigate with normal saline Gently packed with Iodoform Cover with 4 x 4 gauze or ABD pad Secure with roll gauze Secure with stockinet Secure with MCKINLEY wrap Change dressing daily Continue ATB as prescribed. Patient and Patient's family members instructed in Other: Hematoma care to left and arm. Patient and Patient's family members verbalize understanding of treatment regimen and the importance of adherence. Follow up: Return to the wound clinic in 1 week for your provider to evaluate the need for further skilled services and consider additional treatment(s). -We will continue to monitor closely for wound healing and to avoid any complications or infection. Communication sent to Home Health Agency/Skilled Care Facility: [facility] Goals Short Term: Engagement in therapy and care. Conference Center Coordinator: Wound closure Education: -The patient/family/caregiver was taught to watch for S/S of infection (redness, pus, pain, increased swelling, chills or fever) and to call the wound care clinic or PCP if such occurs. -The patient/family/caregiver was educated on offloading the area by avoiding direct pressure to the wound bed. -The patient/family/caregiver was advised to eat a high protein diet. -Education, as well as the pathophysiology of the disease process, was provided on infection, edema, necrotic tissue and its relationship to nonhealing wounds. -Education was provided on maintaining healthy blood glucose levels to support wound healing. N/A -Discussed the negative impact of tobacco use on wound healing. N/A -patient was instructed that she will need at least 80-100 gm of protein per day for her body to heal the wound. -Education was provided on treatment plan. -Patient/family/caregiver verbalized understanding. Instructed to RETURN SOONER OR PROCEED TO EMERGENCY ROOM if there are any concerns or symptoms worsen. Total time spent was 20 minutes: Preparing to see the patient (e.g., review of tests) Obtaining and/or reviewing separately obtained history Performing a medically appropriate examination and/or evaluation Counseling and educating the patient/family/caregiver Ordering medications, tests, or procedures Referring and communicating with other health wound care technician (not separately reported) Documenting clinical information in the electronic or other health record - XAVIER PATEL 10/13/24 2:12 PM Delicia Rivera APRN, CNP, MARC, Y[facility]:[phone] XAVIER Patel 09/20/24 1409 XAVIER Patel 10/03/24 1220 XAVIER Patel 10/13/24 1421 documented in this encounter Plan of Treatment Upcoming Encounters Date Type Department Care Team (Late st Contact Info) Description 11/03/2024 10:40 AM EDT Office Visit [facility] [address] [place] [phone] Delicia Rivera APRN-CNP [address] [place] [address] 01/25/2025 11:00 AM EST Office Visit [facility] [address] [place] [address] Deuce Kirkland MD [address], [address] [address] documented as of this encounter Goals Goal Patient Goal Type Associated Problems Recent Progress Patient-Stated? Author Daughter stated: Discharge to SNF and then back to independent living General Yes Kelly Badillo, RN Note: Evaluation of progress towards goal: progressing towards discharge documented as of this encounter Procedures Procedure Name Priority Date/Time Associated Diagnosis Comments NURSING COMMUNICATION Routine 10/13/2024 2:06 PM EDT Hematoma of arm, left, subsequent encounter NURSING COMMUNICATION Routine 10/13/2024 2:05 PM EDT Hematoma of arm, left, subsequent encounter DEBRIDEMENT Routine 10/13/2024 1:20 PM EDT Hematoma of arm, left, subsequent encounter documented in this encounter Results * Adaptic (10/13/2024 2:06 PM EDT) Narrative MANUALLY TRANSCRIBED RESULTS - 10/13/2024 2:06 PM EDT Applied in clinic us Delicia PARK NURSING COMMUNICATION Fin al Result Performing Organization Address City/[facility] Co de Phone Number MANUALLY TRANSCRIBED RESULTS * Iodoform packing strip (10/13/2024 2:05 PM EDT) Narrative MANUALLY TRANSCRIBED RESULTS - 10/13/2024 2:05 PM EDT Applied in clinic us Delicia Rivera APRN-SAIL LAY OUT WORKER NURSING COMMUNICATION Fin al Result MANUALLY TRANSCRIBED RESULTS * Debridement (10/13/2024 1:20 PM EDT) Narrative MANUALLY TRANSCRIBED RESULTS - 10/13/2024 1:20 PM EDT XAVIER Patel 10/13/2024 2:21 PM Debridement Performed by: XAVIER Patel Authorized by: XAVIER Patel Associated wounds: Wound 09/20/24 1 Traumatic Arm Left;Posterior Consent: Consent obtained: Verbal and written Consent given by: Patient Risks discussed: Yes Debridement Details: Performed by: PICK OUT HAND Type: Selective Tissue, Devitalized tissue and other material debrided: Clots and slough Anesthesia administration: topical Anesthesia: EMLA Total Surface Area Debrided cm^2: 12.96 Specimen Taken: None Other Specimen Taken: Pending wound culture obtained in nursing facility Instrument: Scissors Other Instrument: Moist swab Bleeding Control: Pressure Response to treatment: Procedure was tolerated well Tissue Applied?: No Delicia Leonarda Bassey SUPERVISOR JEWELRY DEPARTMENT-SA[employer] OUT WORKER PROCEDURE/MINOR SURGICAL ORDERABLES Final Result MANUALLY TRANSCRIBED RESULTS documented in this encounter Visit Diagnoses Diagnosis Hematoma of arm, left, subsequent encounter- Primary documented in this encounter Additional Health Concerns Assessment Noted Time PHQ-9 Depression Total Score: 0 08/21/19 25 5:53 PM EDT documented as of this encounter Care Teams Sanitary Chemist Relationship Specialty Start Date End Date Shirlene Vergara MD [address] [place] [address] PCP - General Family Medicine 04/10/22 documented as of this encounter
--- OUTSIDE RECORDS SUMMARY | 2024-10-18 13:20 | XMS_ITS | Encounter Summary ---
Author Organization [facility] Address [address] [place] [address] Care Team Providers Care Legislative Director Name Role Phone Shirlene Vergara MD Primary Care Provider [phone] Reason for Referral * Imaging (Routine) - Pending Review Specialty Diagnoses / Procedures Referred By Christiane gonsalves Referred To Contact Cardiology Diagnoses Diastolic dysfunction Nonrheumatic mitral valve regurgitation Procedures Transthoracic echo (TTE) complete Zeenat Arriola CNP [address] [place] [address] Phone: tel: fax: Referral ID Status Reason Start Date Expiration Date Visits Requested Visits Authorized [id number] Pending Review Perform Procedure 10/18/2024 10/18/2025 1 1 Reason for Visit * Reason Comments Follow-up Patient is here for a follow up admission [facility] for an infection s/p graft right leg. 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 Encounter Details Date Type Department Care Team (Late st Contact Info) Description 10/18/2024 1:20 PM EDT Office Visit [facility] [address] [place] [address] Zeenat Arriola CNP [address] [place] [address] Diastolic dysfunction (Primary Dx); Mixed hyperlipidemia; Nonrheumatic mitral valve regurgitation; Coronary artery disease involving [place] coronary artery of [place] heart without angina pectoris; Hx of CABG; Primary hypertension; Leg edema Social History Tobacco Use Types Packs/Day Years [...] Information Value Date Recorded Sex Assigned at Female 10/13/2024 3:11 PM EDT Legal Sex Female 10:59 PM EDT Gender Identity Female 10/13/2024 3:11 PM EDT Sexual Orientation Heterosexual or Straight 06/2024 3:11 PM EDT documented as of this encounter Last Filed Vital Signs Vital Sign Reading Time Taken Comments Blood Pressure 132/54 10/18/2024 1:14 PM EDT Pulse 57 10/18/2024 1:14 PM EDT Temperature - - Respiratory Rate - - Oxygen Saturation 98% 10/18/2024 1:14 PM EDT Inhaled Oxygen Concentration - - Weight 63.5 kg (140 lb) 10/18/2024 1:14 PM EDT Height 177.8 cm (5' 10 ) 10/18/2024 1:14 PM EDT Body Mass Index 20.09 10/18/2024 1:14 PM EDT documented in this encounter Patient Instructions * Patient Instructions* Zeenat Arriola CNP - 10/18/2024 1:20 PM EDT *Stable from a cardiac standpoint. *Follow-up ECHO ordered. *Have BNP drawn with upcoming labs given leg swelling noted on exam. *Also have lipid panel draw with upcoming labs. *Follow-up with cardiology in 3 months. documented in this encounter Progress Notes * Zeenat Arriola CNP - 10/18/2024 1:20 PM EDT Images from the original note were not included. Cardiovascular Medicine [facility] SUBJECTIVE Chief Complaint Patient presents with Follow-up Patient is here for a follow up admission [facility] for an infection s/p graft right leg. 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 female here for follow-up. Hypertension Hyperlipidemia PMHx: CAD s/p CABG 1998, HTN, HLD 10/18/2024 Since last seen she wore a heart monitor. Pre-barnes review showed SR with PACs/PVCs. She was also admitted to [facility] for RLE pain - she was found to have an infected graft s/p explantation. She had a complicated hospital course related to delirium. She has since seen Dr. Kirkland whotold her nothing further to do. She also had PNA. She is back at residential. She is doing PT daily. Spironolactone was held due to worsened renal function. She has some leg swelling. Unsure of DIAZ asshe has not been very active. She c/o fatigue. Denies c/o CP, dyspnea. 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 Smoking Status Former BSA 1.77 m?? Medications: Current Outpatient Medications: acidophilus-pectin, citrus 25 million cell -100 mg tablet, Take 100 mg by mouth once daily as directed., Disp: , Rfl: ascorbic acid (Vitamin C) 250 MG chewable [...] mouth in the morning., Disp: , Rfl: cilostazol (Pletal) 50 mg tablet, Take 50 mg by mouth two times daily., Disp: , Rfl: clopidogrel (Plavix) 75 mg tablet, TAKE 1 TABLET BY MOUTH ONCE DAILY DIRECTED, Disp: 90 tablet, Rfl: 3 wiettzhcdqej-ieyn-mhzve acid-minerals (Thera-M) 9 mg iron-400 mcg tablet, Take 1 tablet by mouth inthe morning., Disp: , Rfl: nebivolol (Bystolic) 10 mg tablet, Take 1 tablet (10 mg) by mouth once daily as directed., Disp: 90tablet, Rfl: 3 pantoprazole (ProtoNix) 40 mg EC tablet, Take 40 mg by mouth in the morning., Disp: , Rfl: simvastatin (Zocor) 40 mg tablet, simvastatin 40 mg tablet, Disp: , Rfl: methenamine hippurate (Hiprex) 1 gram tablet, Take 1 tablet by mouth Twice daily at 6am and 6pm. (Patient not taking: Reported on 10/18/2024), Disp: , Rfl: spironolactone (Aldactone) 50 mg tablet, Take 50 mg by mouth in the morning. (Patient not taking: Reported on 10/18/2024), Disp: , Rfl: Physical Exam Vitals reviewed. Constitutional: Appearance: Normal [...] lower leg: Edema present. Comments: +1 BLE edema; RLE wrapped in MCKINLEY bandage Skin: General: Skin is warm and dry. [...] is 71%. 3 times daily ratio 0.9. ECHO 11/16/2023 LVEF 60-65% Moderate LVH Normal RV size and systolic function Diastolic function is indeterminate Biatrial dilatation Moderate TR RVSP 40 Mild to mod MR Pre-barnes event monitor 08/24/2024 SR with PVCs and PACs, pt was asymptomatic ASSESSMENT/PLAN: Diagnoses and all orders for this visit: Diastolic dysfunction - B-type natriuretic peptide; Future - Transthoracic echo (TTE) complete; Future Mixed hyperlipidemia - Lipid panel; Future Nonrheumatic mitral valve regurgitation - Transthoracic echo (TTE) complete; Future Coronary artery disease involving [place] coronary artery of [place] heart without angina pectoris Hx of CABG Primary hypertension #CAD s/p CABG 1998 -Denies CP or dyspnea -Continue plavix 75mg daily, statin, and BB #PAD #Critical limb ischemia -s/p iliac artery angioplasty, endarterectomy of the iliofemoral and fempop bypass with Dr. Kirkland 12/2023 -Recent infection of bypass graft s/p graft explant 08/22/24. She -Currently on ASA, plavix, statin #HTN -Controlled -Continue nebivolol 10mg daily, spironolactone 50mg daily #HLD -On simvastatin 40mg daily -Will need lipid panel with next lab draw #Fluctuating heart rate -Pt notes intermittent high heart rates >110 for extended periods of time and she will be resting. -Pre-barnes event monitor showed SR, occasional PVCs/PACs. She is asymptomatic. Will monitor. #LE edema -Increased leg swelling noted today. Spironolactone recently stopped due to impaired renal function. -Indeterminate diastolic function noted on ECHO last year -Follow-up ECHO ordered -Ordered for a BNP lab Follow up in about 3 months (around 01/17/2025). Zeenat Arriola CNP [facility] Cardiovascular Medicine documented in this encounter Plan of Treatment Upcoming Encounters Date Type Department Care Team (Late st Contact Info) Description 01/18/2025 1:45 PM EST Office Visit [facility] Heart at [address] [address] Jake Barry MD [address] [facility] [place] [address] Scheduled Orders Name Type Priority Associated Diagnoses Orde r Schedule B-type natriuretic peptide Lab Routine Diastolic dysfunction Expected: 10/18/2024 (Approximate), Expires: 10/18/2025 Lipid panel Lab Routine Mixed hyperlipidemia Expected: 10/18/2024 (Approximate), Expires: 10/18/2025 Transthoracic echo (TTE) complete Echocardiography Routine Diastolic dysfunction Nonrheumatic mitral valve regurgitation Expected: 10/18/2024 (Approximate), Expires: 10/18/2026 documented as of this encounter Visit Diagnoses Diagnosis Diastolic dysfunction- Primary Unspecified heart disease Mixed hyperlipidemia Nonrheumatic mitral valve regurgitation Coronary artery disease involving [place] coronary artery of [place] heart without angina pectoris Hx of CABG Postsurgical aortocoronary bypass status Primary hypertension Unspecified essential hypertension Leg edema Edema documented in this encounter Care Teams Legislative Director Relationship Specialty Start Date End Date Shirlene Vergara MD [address] [place] [address] #A PCP - General 12/05/21 documented as of this encounter
--- OUTSIDE RECORDS SUMMARY | 2024-10-20 11:00 | XMS_ITS | Encounter Summary ---
Author Organization [facility] [employer] [facility] tem Address [id number] [address] [place] [address] Care Team Providers Care Cover Making Machine Operator Name Role Phone Shirlene Vergara MD Primary Care Provider [phone] Reason for Referral * Misc (Routine) - Authorized Specialty Diagnoses / Procedures Referred By Christiane t Referred To Contact Procedures Iodoform packing strip Delicia Rivera APRN-SINTERING PRESS OPERATOR [address] [place] [address] Phone: tel: fax: Referral ID Status Reason Start Date Expiration Date V isits Requested Visits Authorized [id number] Authorized 10/20/2024 10/20/2025 1 1 Reason for Visit * Reason Comments Wound Check Encounter Details Date Type Department Care Team (Late st Contact Info) Description 10/20/2024 11:00 AM EDT Office Visit [facility] [address] [place] [id number] Delicia Rivera APRN-SINTERING PRESS OPERATOR [address] [place], [place] [id number] Pressure injury of right heel, unstageable (CMS-HCC) (Primary Dx); Hematoma of arm, left, subsequent encounter; 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) Social History Tobacco Use Types Packs/Day Years Used Date Smoking Tobacco: Former Cigarettes Q uit: 12/30/1993 Smokeless Tobacco: Never Comments:QUIT IN 1989 Alcohol Use Standard Drinks/Week Comments Yes 1 (1 standard drink = 0.6 oz pur e alcohol) monthly [facility] Utilities Answer Date Recorded In the past 12 months has th e electric, gas, oil, or water company [...] Sign Reading Time Taken Comments Blood Pressure 130/50 10/20/2024 11:09 AM EDT Pulse 67 10/20/2024 11:09 AM EDT Temperature 36.6 C (97.8 F) 10/20/2024 11:09 AM EDT Respiratory Rate 16 10/20/2024 11:09 AM EDT Oxygen Saturation - - Inhaled Oxygen Concentration - - Weight - - Height - - Body Mass Index - - documented in this encounter Patient Instructions * Patient Instructions* Heidy Merritt RN - 10/20/2024 11:00 AM EDT [facility] [place]- order rooke boot Wound Management Treatment Plan Wound Location(s): Left [...] wound. STEP 6: Secure dressings with an erik wrap. Wound location: Right toes, Right dorsal foot and right lateral leg HOW TO CARE FOR YOUR WOUND The following should be performed Daily and as needed. STEP 1: Apply [place] with Betadine Swab to wound bed. STEP 2: Cover wound with Rolled gauze STEP 3: Secure dressings with Erik Wrap (Elastic Bandage) ACTIVITY: Avoid direct pressure to wound(s) at all times NUTRITION: High protein diet SKIN CARE: Moisturize all dry and intact skin SWELLING CONTROL: Erik wraps to be applied first thing in the morning and removed at bedtime. right and left leg wrap from base of toes to just below the knee. May require more than one wrap per leg. ITEMS TO FOLLOW UP ON: None Length Width Depth Wound 10/20/24 3 Pressure Injury Foot Right;Dorsal-Wound Length (cm): 2.5 cm Wound 10/20/24 2 Arterial Ulcer Foot Right;Upper-Wound Length (cm): 10.5 cm Wound 10/20/24 4 Pressure Injury Leg Right;Lateral-Wound Length (cm): 12.5 cm Wound 09/20/24 1 Traumatic Arm Left;Posterior-Wound Length (cm): 5.9 cm Wound 10/20/24 3 Pressure Injury Foot Right;Dorsal-Wound Width (cm): 0.9 cm Wound 10/20/24 2 Arterial Ulcer Foot Right;Upper-Wound Width (cm): 6.5 cm Wound 10/20/24 4 Pressure Injury Leg Right;Lateral-Wound Width (cm): 2 cm Wound 09/20/24 1 Traumatic Arm Left;Posterior-Wound Width (cm): 0.6 cm Wound 09/20/24 1 Traumatic Arm Left;Posterior-Wound Depth (cm): 0.3 cm Wound drainage Type Description none None none ACTIVITY: Avoid direct pressure to wound(s) at all times NUTRITION: High protein diet SKIN CARE: Moisturize all dry and intact skin SWELLING CONTROL: Keep arm elevated on pillow SUPPLIES: roll gauze, Iodoform, erik wrap. Current Date - 09/20/24 ITEMS TO FOLLOW UP ON: None Length Width Depth Wound 09/20/24 1 Traumatic Arm Left;Posterior-Wound Length (cm): 5.9 cm Wound 09/20/24 1 Traumatic Arm Left;Posterior-Wound Width (cm): 0.6 cm Wound 09/20/24 1 Traumatic Arm Left;Posterior-Wound Depth (cm): 0.3 cm Wound drainage Type Description small Sanguinous bloody documented in this encounter Progress Notes * Delicia Rivera, [employer] LICENSEE-SINTERING PRESS OPERATOR - 10/20/2024 11:00 AM EDT Images from the original note were not included. Wound Care Progress Note Patient: Delicia Sanderson Date of : 1935 Chief Complaint: left arm open wound, follow up Left foot and lateral calf wounds Subjective/HPI: Delicia is a 89 y.o. female who present to [facility] for evaluation of 4 ulcer(s) on the left lower forearm. Patient established with wound clinic 09/20/2024. Current wound care includes: pack with alginate roping, secure with roll gauze and stockinet. Patient is wearing of surgical shoe.Received call from nursing facility 10/12/2024, with concern for increase in wound size and purulent drainage. Facility obtained a wound culture and started patient on Bactrim DS. Patient continues to follow with vascular surgery for critical limb ischemia of RLE. Patient hospitalized 08/19/2024 through 09/07/2024 with the primary diagnosis of pulsating right lower extremity mass, secondary to infected graft status post explantation. Graft explant of the rightlower extremity, repair of femoral and popliteal artery was done [address] Kirkland. Patient/family reports a wound on her left forearm is the result of an infiltrated IV during hospitalization. Patient was discharged to a retirement facility where she remains. Measurable wound changes: Increase in wound measurements and tunnel depth Patient accompanied by: family members X 2, patient arrives in wheelchair Nutritional screen shows patient does not take in three servings of protein per day. Patient does deny fever, chills, sweats or other symptoms of infection. Prescribed antibiotics: continues taking Bactrim DS as prescribed. Today's reported [...] breakdown of skin ([facility]) Chronic ulcer of right heel ([facility]) Closed fracture of neck of femur ([facility]) Complete tear of right rotator cuff Diarrhea Essential hypertension Gastroesophageal reflux disease Hip bursitis, left Hypercalcemia Hyperlipidemia Immunocompromised state Ingrown nail 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 ([facility]) 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 Other abnormalities of gait and mobility Recurrent Clostridioides difficile diarrhea Recurrent UTI Urge incontinence Venous insufficiency (chronic) (peripheral) 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 ([facility]) Peripheral vascular disease 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 ([facility]) Venous ulcer of right leg ([facility]) Critical limb ischemia of both lower extremities with rest pain ([facility]) Venous ulcer of ankle, right ([facility]) Encounter for therapeutic drug monitoring Critical limb ischemia of left lower extremity with rest pain ([facility]) 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 ([facility]) Aneurysm of artery of lower extremity Acute pain of right lower extremity Bacteremia Moderate protein-energy malnutrition Chronic venous 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 ([facility]) Elevated white blood cell count, unspecified 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 difficile diarrhea 12/2022 HOSPITALIZED, 01/2023 Cataract Cholecystitis Chronic kidney disease Colitis Coronary artery disease Critical limb ischemia of right lower extremity ([facility]) Dental disease UPPER AND LOWER [...] 01/01/2024 Performed by Deuce Kirkland MD at [facility] SPECIAL PROC ANGIOPLASTY ILIAC STENT PLACEMENT Right 01/01/2024 Performed by Deuce Kirkland MD at [facility] SPECIAL PROC ANGIOPLASTY ILIAC-ILIAC SHOCKWAVE INTRAVASCULAR LITHOTRIPSY Right 11/18/2023 Performed by Deuce Kirkland MD at [facility] SPECIAL PROC ARTHROSCOPY SHOULDER W/ OPEN ROTATOR CUFF REPAIR Left 2011 BOVINE PATCH ANGIOPLASTY CUTDOWN FEMORAL Right 01/01/2024 Performed by Deuce Kirkland MD at [facility] SPECIAL PROC BOVINE PATCH ANGIOPLASTY ILEOFEMORAL Right 01/01/2024 Performed by Deuce Kirkland MD at [facility] SPECIAL PROC BYPASS ARTERY FEMORAL BELOW KNEE POPLITEAL W/ VEIN PATCH/ HIGH GSV LIGATION AND HARVEST Right 01/01/2024 Performed by Deuce Kirkland MD at [facility] SPECIAL PROC CARDIAC SURGERY CATARACT EXTRACTION CHOLECYSTECTOMY N/A 2008 CORONARY ARTERY BYPASS GRAFT 1999 x 5 ENDARTERECTOMY FEMORAL AND ILIOFEMORAL ENDARTERECTOMY Right 01/01/2024 Performed by Deuce Kirkland MD at [facility] SPECIAL PROC EYE SURGERY GRAFT EXPLANT - RIGHT LOWER EXTREMITY/ REPAIR OF FEMORAL AND POPLITEAL ARTERY Right 08/22/2024 Performed by Deuce Kirkland MD at [facility] HERNIA REPAIR N/A 03/2012 HIP FRACTURE SURGERY Left 05/2017 HYSTERECTOMY N/A JOINT REPLACEMENT lower ext angiogram Bilateral 01/07/2022 Performed by Taryn Belle MD at [facility] CARDIAC CATH LABS SCLEROTHERAPY LOWER EXTREMITY Right 12/24/2023 Performed by Deuce Kirkland MD at [facility] TOTAL HIP ARTHROPLASTY Left 2019 VASCULAR SURGERY Angiogram Social Drivers of Health Food Insecurity: No Food Insecurity (10/03/2024) Hunger Screening Food Insecurity - Worry: Never True Food Insecurity - Inability: Never True Housing Instability: Low Risk (08/20/2024) Housing Instability Housing Instability: No Transportation Needs: No Transportation Needs (08/20/2024) PRAPARE - Transportation Lack of Transportation (Medical): No Lack of Transportation (Non-Medical): No Utility Difficulties: Not At Risk (08/20/2024) [facility] Utilities Threatened with loss of utilities: [...] Binge Drinking: Never Tobacco Use: Medium Risk (10/18/2024) Received from [facility] Patient History Smoking Tobacco Use: Former Smokeless [...] tablet Take 1 tablet by mouth nightly. dreyrizb-bkyr-MR-calcium &mins (THERAGRAN-M) 9 mg iron-400 mcg tablet [...] completed including current medication andpost discharge medication. PAIN:denies, no rest pain Review of Systems Constitutional: Positive for fatigue. [...] Negative for numbness. Hematological: Bruises/bleeds easily. Objective: Vitals: 10/20/24 1109 BP: 130/50 Pulse: 67 Resp: 16 Temp: 36.6 ??C (97.8 ??F) Physical Exam Nursing note reviewed. Constitutional: Appearance: [...] 1 Traumatic Arm Left;Posterior (Active) Wound Image 10/20/24 112 Site Assessment Red;[place] 10/20/240 Gertrude-wound Assessment Blanchable erythema 10/20/240 Wound Length (cm) 5.9 cm 10/20/24 1120 Wound Width (cm) 0.6 cm 10/20/24 1120 Wound Surface Area (cm^2) 2.78 cm^2 10/20/24 1120 Wound Depth (cm) 0.3 cm 10/20/240 Wound Volume (cm^3) 0.556 cm^3 10/20/240 Change in Wound Size % 49.45 10/20/240 Undermining 1 (cm) 6.2 cm 10/20/240 Start: Undermining 1 Clock Position 12 o'clock 10/20/241119 End: Undermining 1 Clock Position 1 o'clock 10/20/24 1120 Wound 10/20/24 3 Pressure Injury Foot Right;Dorsal (Active) Wound Image 10/20/24 1120 Site Assessment Black;Dry 10/20/240 Gertrude-wound Assessment [place] 10/20/24 1120 Wound Length (cm) 2.5 cm 10/20/24 1120 Wound Width (cm) 0.9 cm 10/20/24 1120 Wound Surface Area (cm^2) 1.77 cm^2 10/20/240 Drainage Amount None 10/20/241119 Treatments Cleansed with;Wound cleanser 10/20/241119 Debridement Performed? N 10/20/241119 Dressing Type Betadine Swab 10/20/241119 Dressing Changed Changed 10/20/241119 Dressing Status Clean;Dry;Intact 10/20/24 112 Wound Bed Eschar (%) 100% 10/20/241119 Wound 10/20/24 2 Arterial Ulcer Foot Right;Upper (Active) Wound Image 10/20/241119 Site Assessment Black;Dry 10/20/241119 Gertrude-wound Assessment Dry 10/20/241119 Wound Length (cm) 10.5 cm 10/20/241119 Wound Width (cm) 6.5 cm 10/20/241119 Wound Surface Area (cm^2) 53.6 cm^2 10/20/241119 Drainage Amount None 10/20/241119 Treatments Cleansed with;Wound cleanser 10/20/241119 Debridement Performed? N 10/20/241119 Dressing Type Betadine Swab;Gauze Rolled/Kerlix 10/20/241119 Dressing Changed Changed 10/20/241119 Dressing Status Clean;Dry;Intact 10/20/241119 Wound Bed Eschar (%) 100% 10/20/241119 Wound 10/20/24 4 Pressure Injury Leg Right;Lateral (Active) Wound Image 10/20/241119 Site Assessment Black;Dry 10/20/240 Gertrude-wound Assessment Dry 10/20/241119 Wound Length (cm) 12.5 cm 10/20/241119 Wound Width (cm) 2 cm 10/20/241119 Wound Surface Area (cm^2) 19.63 cm^2 10/20/241119 Drainage Amount None 10/20/241119 Treatments Cleansed with;Wound cleanser 10/20/241119 Debridement Performed? N 10/20/241119 Dressing Type Betadine Swab 10/20/241119 Dressing Changed Changed 10/20/241119 Dressing Status Clean;Dry;Intact 10/20/241119 Wound Bed Eschar (%) 100% 10/20/241119 Procedures not indicated Assessment/Plan/Education: 1. Pressure injury of right heel, unstageable ([facility]) 2. Hematoma of arm, left, subsequent encounter 3. 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 Right leg/foot wounds Wash mild soap and water Betadine paint daily Secure with roll gauze and ERIK wrap Change daily ROOKE boot to right foot May use a bed cradle to avoid sheets from hitting on toes of right foot. Avoid direct pressure to right heel Patient and Patient's family members instructed in Other: Hematoma care to left and arm. Patient and Patient's family members verbalize understanding of treatment regimen and the importance of adherence. Follow up: Return to the wound clinic in 2 weeks for your provider to evaluate the need for further skilled services and consider additional treatment(s). -We will continue to monitor closely for wound healing and to avoid any complications or infection. Communication sent to Home Health Agency/Skilled Care Facility: [facility] Treatment Goals Short Term: Engagement in therapy and care. Half-Way: Wound closure Education: -The patient/family/caregiver was taught [...] procedures Referring and communicating with other health care manager cna (not separately reported) Documenting clinical information in the electronic or other health record - XAVIER PATEL 10/20/24 12:30 PM Delicia Rivera APRN, SINTERING PRESS OPERATOR, CWS, [facility]:[phone] XAVIER Patel 09/20/24 1409 XAVIER Patel 10/03/24 1220 XAVIER Patel 10/13/24 1421 XAVIER Patel 10/20/24 1241 documented in this encounter Plan of Treatment Upcoming Encounters Date Type Department Care Team (Late st Contact Info) Description 11/03/2024 10:40 AM EDT Office Visit [facility] [address] [place] [address] Delicia Rivera APRN-CNP [address] [place] [address] 01/25/2025 11:00 AM EST [facility] [address] [place] [address] Deuce Kirkland MD [address], [address] [address] documented as of this encounter Goals Goal Patient Goal Type Associated Problems Recent Progress Patient-Stated? 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
--- NOTE | 2024-10-25 14:00 | CA_ITS ---
Patient Name: SAGE HSU MR#: [id number] : 1935 Exam Date: 10/25/2024 Ordering Doctor: KYREE FLETCHER CNP ECHOCARDIOGRAM REPORT PROCEDURE: CA ECHO DOPPLER COMPLETE INDICATIONS: Diastolic dysfunction, mitral valve regurgitation COMPARISON: None. DESCRIPTION: COMPLETE ECHOCARDIOGRAM Real-time transthoracic echocardiography with 2D, M-mode, spectral and color flow Doppler performed. QUALITY: Technical quality was good. LEFT VENTRICLE: Normal chamber size. Mild concentric left ventricular hypertrophy. Global left ventricular systolic function is normal. LV EF: Visual estimation of left ventricular ejection fraction is 65-70%. DIASTOLIC: Grade III diastolic dysfunction. ATRIAL SEPTUM: LEFT ATRIUM: Severe dilatation. RIGHT ATRIUM: Severe dilatation. RIGHT VENTRICLE: Normal chamber size. Normal right ventricular systolic function. TRICUSPID VALVE: Normal mobility and thickness. No stenosis with moderate regurgitation. Mild pulmonary hypertension. RVSP 40 mmHg. MITRAL VALVE: Normal mobility and thickness. No evidence of mitral valve stenosis. There is no mitral annular calcification. Mild to moderate mitral regurgitation. AORTIC VALVE: Normal trileaflet appearance. Mildly calcified aortic valve. Normal leaflet mobility. No evidence of aortic valve stenosis. No aortic regurgitation. AORTIC ROOT: Normal diameter and appearance, measuring 3.0 cm. The ascending aorta is normal in size measuring 2.9 cm. PULMONIC VALVE: Normal thickness and mobility. No stenosis. Trivial regurgitation. PERICARDIUM: No evidence of pericardial effusion. IVC: Collapses with inspiration. Normal size measuring 2.1 cm. PLEURA: CONCLUSION: 1. Mild concentric left ventricular hypertrophy with normal systolic function. Estimated LVEF is 65 to 70%. 2. Normal right ventricular size and systolic function. 3. Severe biatrial dilatation. 4. Grade 3 diastolic dysfunction. 5. Moderate tricuspid regurgitation. 6. Mild to moderate tricuspid regurgitation. 7. Mildly elevated right-sided pressures. RVSP is 40 mmHg. Adult Echocardiography Procedure Report Left Ventricle LVEDD (3.7 - 5.6 cm): 4.52 cm LVESD (2.2 - 4.0 cm): 3.11 cm LVIVS thickness (0.6 - 1.2 cm): 1.21 cm LVPW thickness (0.5 - 1.0 cm): 1.25 cm e': 0.09 m/s E - e': 12.89 LVOT Max Gradient: 4.93 mm[Hg] LVOT Area (cm2): 1.11 m/s Peak Velocity (LVOT): 1.11 m/s Mean Velocity (LVOT): 0.70 m/s LVOT Diameter 2.02 cm Left Ventricular Ejection Fraction: 65-70 % Left Atrium LA Volume Index (2D A2C): 56.53 ml/m2 Left Atrium Systolic Dimension: 4.03 cm Mitral Valve MV E to A Ratio: 2.23 Mitral Valve A-Wave Peak Velocity: 0.50 m/s Mitral Valve E-Wave Peak Velocity: 1.11 m/s Right Ventricle RV Internal Diastolic Dimension: 4.05 cm Aorta AO Root Diam: 3.02 cm Ascending Ao Diam: 2.86 cm Aortic Valve AoV Area (Peak Tommy): 2.60 cm2, 2.60 cm2 AoV Area (VTI): 2.55 cm2, 2.55 cm2 Peak Velocity(Antegrade Flow): 1.37 m/s Peak Gradient(Antegrade Flow): 7.48 mm[Hg] Mean Velocity(Antegrade Flow): 0.88 m/s Mean Gradient(Antegrade Flow): 3.71 mm[Hg] Velocity Time Integral: 30.29 cm Tricuspid Valve Peak Velocity (Regurgitant Flow): 2.64 m/s, 3.06 m/s, 2.91 m/s Pulmonic Valve Mean Gradient: 1.87 mm[Hg], 1.52 mm[Hg] Mean Velocity: 0.63 m/s, 0.56 m/s Peak Velocity: 0.93 m/s Peak Gradient: 3.47 mm[Hg], 3.47 mm[Hg] Right Atrium Right Atrium Systolic Pressure: 110.62 ml, 110.62 ml Dictated by: Jeff Diaz M.D. on 10/25/2024 at 18:36 Approved by: Jeff Diaz M.D. on 10/25/2024 at 18:40
--- OUTSIDE RECORDS SUMMARY | 2024-10-25 14:00 | XMS_ITS | Encounter Summary ---
Author Organization [employer] s tem Address [id number] [address] [place] [address] Care Team Providers Care Education Program Manager Name Role Phone Shirlene Vergara MD Primary Care Provider [phone] Encounter Details Date Type Department Care Team (Latest Contact Info) Description 10/11/2024 Travel Social History Tobacco Use Types Packs/Day Years Used Date Smoking Tobacco: Former Cigarettes Q uit: 12/30/1993 Smokeless Tobacco: Never Comments:QUIT IN 1989 Alcohol Use Standard Drinks/Week Comments Yes 1 (1 standard drink = 0.6 oz pur e alcohol) monthly [facility] Utilities Answer Date Recorded In the past 12 months has [employer] electric, gas, oil, or water [employer] threatened to shut off services in your [...] Description 11/03/2024 10:40 AM EDT Office Visit [facility] [address] [place] [address] Delicia Rivera, PERMACULTURE DESIGNER-[facility] [address] [place] [address] 01/25/2025 11:00 AM EST Office Visit [facility] [place] [address] Deuce Kirkland MD [address], [address] [address] documented as of this encounter Goals Goal [...] documented as of this encounter Care Teams Education Program Manager Relationship Specialty Start Date End Date Shirlene Vergara MD [address] [place] [address] PCP - General Family Medicine 04/10/22 documented as of this encounter
--- OUTSIDE RECORDS SUMMARY | 2024-10-25 14:00 | XMS_ITS | Encounter Summary ---
Author Organization [employer] s tem Address [id number] [address] [place] [address] Care Team Providers Care Partition Assembler Name Role Phone Shirlene Vergara MD Primary Care Provider [phone] Encounter Details Date Type Department Care Team (Latest Contact Info) Description 10/18/2024 Travel Social History Tobacco Use Types Packs/Day Years Used Date Smoking Tobacco: Former Cigarettes Q uit: 12/30/1993 Smokeless Tobacco: Never Comments:QUIT IN 1989 Alcohol Use Standard Drinks/Week Comments Yes 1 (1 standard drink = 0.6 oz pur e alcohol) monthly [facility] Utilities Answer Date Recorded In the past 12 months has [employer] electric, gas, oil, or water [employer] threatened to shut off services in your [...] Description 11/03/2024 10:40 AM EDT Office Visit [facility] [address] [place] [address] Delicia Rivera, DBAS-[facility] [address] [place] [address] 01/25/2025 11:00 AM EST Office Visit [facility] [place] [place] [address] Deuce Kirkland MD [address], [address] [address] documented as of this encounter Goals Goal [...] documented as of this encounter Care Teams Partition Assembler Relationship Specialty Start Date End Date Shirlene Vergara MD [address] [place] [address] PCP - General Family Medicine 04/10/22 documented as of this encounter
--- OUTSIDE RECORDS SUMMARY | 2024-10-25 14:00 | XMS_ITS | Clinical Summary ---
Author Organization [facility] Address [address] [place], [place] [id number] Care Team Providers Care Delivery Aide Name Role Phone Shirlene Vergara MD Primary Care Provider [phone] Allergies Active Allergy Reactions Criticality Noted Date Comments Histamine Other: See Comments 02/03/2013 it wires me Promethazine Hcl Other: See Comments 02/03/2013 Made her shake very badly Medications Moexipril-Brackney chlorothiazide (UNIRETIC) 7.5-12.5 mg per tablet Take [...] 75+ series) 09/29/2011 Diabetes Screening 11/16/2017 11/16/2014 Advance Directive Discussion 02/09/2024 Influenza Vaccine (#1) 2024 Procedures Procedure Name Priority Date/Time Associated Diagnosis Comments COMPREHENSIVE METABOLIC PANEL Routine 11/16/2014 5:01 PM EDT Epigastric pain from Last 3 Months or Most Recently Relevant to Health Maintenance Results * (ABNORMAL) COMP METABOLIC PANEL (11/16/2014 5:01 PM EDT) Protein, Total 6.8 6.0 - 8.4 g/dL 11/16/2014 10:41 PM EDT [facility] Albumin 4.1 3.5 - 5.0 g/dL 11/16/2014 10:41 PM EDT [facility] Calcium 9.3 8.5 - 10.5 mg/dL 11/16/2014 10:41 PM EDT [facility] Bilirubin, Total 0.5 0.0 - 1.5 mg/dL 11/16/2014 10:41 PM [facility] Alkaline Phosphatase 27(L) 40 - 150 U/L 11/16/2014 10:41 PM [facility] AST 21 7 - 40 U/L 11/16/2014 10:41 PM [facility] Glucose 62(L) 65 - 100 mg/dL 11/16/2014 10:41 PM [facility] BUN 19 8 - 25 mg/dL 11/16/2014 10:41 PM [facility] Creatinine 1.04 0.70 - 1.40 mg/dL 11/16/2014 10:41 PM [facility] Sodium 143 132 - 148 mmol/L 11/16/2014 10:41 PM [facility] Potassium 3.5 3.5 - 5.0 mmol/L 11/16/2014 10:41 PM [facility] Chloride 100 98 - 110 mmol/L 11/16/2014 10:41 PM [facility] CO2 29 23 - 32 mmol/L 11/16/2014 10:41 PM [facility] Anion Gap 14 0 - 15 mmol/L 11/16/2014 10:41 PM [facility] ALT 13 0 - 45 U/L 11/16/2014 10:41 PM [facility] eGFR- >60 11/16/2014 10:41 PM [facility] eGFR-All Other Races 51 . 11/16/2014 10:41 PM [facility] Comment: eGFR (Estimated GFR) Units of [...] Jeanette Corbin MD, PhD LABORATORY Final Result [facility] [address] [place] [address] from Last 3 Months or Most Recently Relevant to Health Maintenance Insurance MEDICARE BLUE CARD PPO OOS Care Teams Delivery Aide Relationship Specialty Start Date End Date Shirlene Vergara MD [address] [place] [address] PCP - General Family Medicine 07/29/11
--- OUTSIDE RECORDS SUMMARY | 2024-10-25 14:00 | XMS_ITS | Encounter Summary ---
Author Organization [facility] tem Address [id number] [address] [place] [address] Care Team Providers Care Compensation And Benefits Administrator Name Role Phone Shirlene Vergara MD Primary Care Provider [phone] Reason for Visit * Reason Onset Date Comments Care Navigation 10/12/2024 Encounter Details Date Type Department Care Team (Late st Contact Info) Description 10/12/2024 Telephone [facility] - [facility] Care Outpatient [address] [place] [address] Indy Scherer, KAYLYNN Care Navigation Social History Tobacco Use Types Packs/Day Years Used Date Smoking Tobacco: Former Cigarettes Q uit: 12/30/1993 Smokeless Tobacco: Never Comments:QUIT IN 1989 Alcohol Use Standard Drinks/Week Comments Yes 1 (1 standard drink = 0.6 oz pur e alcohol) monthly [facility] Utilities Answer Date Recorded In the past 12 months has [employer], gas, oil, or water company threatened [...] encounter Miscellaneous Notes * Telephone Encounter - Indy Scherer RN - 10/12/2024 2:44 PM EDT Message received on nurses line from Gabby - stating that yesterday there was a lot of copious drainage from the superior hematoma area and tunneling now that goes up to that, 7.3 cm; Gabby received orders from the PCP to obtain a wound culture and start bactrim; and they will fax the culture results to wound care if wound cares fax # is included with her paperwork after tomorrows appt. Senior Informatica Developer called [facility] and spoke with Halie and confirmed above info. Senior Informatica Developer to forward note to provider and [place] wound care staff. documented in this encounter Plan of Treatment Upcoming Encounters Date Type Department Care Team (Late st Contact Info) Description 11/03/2024 10:40 AM EDT Office Visit [facility] [address] [place] [address] Delicia Rivera, AUTOMATIC MOUNTER-GATE CLERK [address] [place] [address] 01/25/2025 11:00 AM EST Office Visit [facility] [place] [address] [place] [address] Deuce Kirkland MD [address], [address] [address] documented as of this encounter Goals Goal Patient Goal Type Associated Problems Recent Progress Patient-Stated? Author Daughter stated: Discharge to SNF and then back to independent living General Yes Kelly Badillo, KAYLYNN Note: Evaluation of progress towards goal: progressing towards discharge documented as of this encounter Visit Diagnoses Not on filedocumented in this encounter Additional Health Concerns Assessment Noted Time PHQ-9 Depression Total Score: 0 08/21/19 25 5:53 PM EDT documented as of this encounter Care Teams Compensation And Benefits Administrator Relationship Specialty Start Date End Date Shirlene Vergara MD [address] [place] [address] PCP - General Family Medicine 04/10/22 documented as of this encounter
--- OUTSIDE RECORDS SUMMARY | 2024-10-25 14:00 | XMS_ITS | Encounter Summary ---
Author Organization [facility] [employer] [facility] tem Address [id number] [address] [place] [address] Care Team Providers Care Manager Strategic Partnerships Name Role Phone Shirlene Vergara MD Primary Care Provider [phone] Reason for Visit * Reason Onset Date Comments Hospital Follow-up 08/28/2024 Encounter Details Date Type Department Care Team (Late st Contact Info) Description 08/28/2024 Telephone [facility] [address] [place] [address] [facility] Follow-up Social History Tobacco Use Types Packs/Day Years Used Date Smoking Tobacco: Former Cigarettes Q uit: 12/30/1993 Smokeless Tobacco: Never Comments:QUIT IN 1989 Alcohol Use Standard Drinks/Week Comments Yes 1 (1 standard drink = 0.6 oz pur e alcohol) monthly [facility] Utilities Answer Date Recorded In the past 12 months has [employer], gas, oil, or water [employer] threatened to shut off services in your [...] got money to buy more. Never True 08/20/2024 Within the past 12 months th e food we bought just didn't last and we didn't have money to get more. Never True 08/20/2024 Purpose - Life Answer Date Recorded Purpose and direction in life Unknown Comments No Sex and Gender Information Value Date Recorded Sex Assigned at Not on file Legal Sex Female 12:05 PM EDT Gender Identity Not on file Sexual Orientation Not on file documented as of this encounter Miscellaneous Notes * Telephone Encounter - Suyapa Carrero - 08/28/2024 3:14 PM EDT Message from the 08/25/24 discharge list per RRK. He signed off patient care from [facility] Dx 1. CAD SP CABG -remote 1998 -no obvious anginal symptoms -negative stress test 2022, normal LV function 2. Postop day 3 -fem pop bypass graft explant infected 3. Extensive peripheral vascular disease is documented 4. Bradycardia/tachycardia -yesterday was placed on metoprolol Patient to f/u in 1 to 2 weeks post d/c bvb * Telephone Encounter - Malathi Kiser CMA - 08/28/2024 3:14 PM EDT Patient still currently admitted as of 08/28/2024 * Telephone Encounter - Malathi Kiser CMA - 08/28/2024 3:14 PM EDT Patient still currently admitted as of 08/29/2024 * Telephone Encounter - Malathi Kiser CMA - 08/28/2024 3:14 PM EDT Patient still currently admitted as of 08/30/2024 * Telephone Encounter - Ciara Crane CMA - 08/28/2024 3:14 PM EDT PT STILL ADMITTED OF 08/30/24 * Telephone Encounter - Malathi Kiser CMA - 08/28/2024 3:14 PM EDT Pt still currently admitted as of 08/31/2024 * Telephone Encounter - Malathi Kiser CMA - 08/28/2024 3:14 PM EDT Pt still currently admitted as of 09/01/2024 * Telephone Encounter - Malathi Kiser CMA - 08/28/2024 3:14 PM EDT Patient still currently admitted as of 09/04/2024 * Telephone Encounter - Malathi Kiser CMA - 08/28/2024 3:14 PM EDT Pt still currently admitted as of 09/05/2024 * Telephone Encounter - Malathi Kiser CMA - 08/28/2024 3:14 PM EDT Pt still currently admitted as of 09/06/2024 * Telephone Encounter - Malathi Kiser CMA - 08/28/2024 3:14 PM EDT Pt still currently admitted as of 09/07/2024 * Telephone Encounter - Ángela Wilkinson CMA - 08/28/2024 3:14 PM EDT CALLED TO [facility] FOLLOW UP SPOKE WITH DAUGHTER TAYLER. PT CURRENTLY SEES DR. ROBISON -STOCK OR DELIVERY CLERK IN [place] DOES NOT WISH TO SEE 2 CARDIOLOGISTS. documented in this encounter Plan of Treatment Upcoming Encounters Date Type Department Care Team (Late st Contact Info) Description 11/03/2024 10:40 AM EDT Office Visit [facility] [address] [place] [address] Delicia Rivera, OUTREACH ASSISTANT-METAL TANK BUILDER [address] [place] [address] 01/25/2025 11:00 AM EST Office Visit [facility] [place] [address] Deuce Kirkland MD [address], [address] [address] documented as of this encounter Goals Goal [...] documented as of this encounter Care Teams Manager Strategic Partnerships Relationship Specialty Start Date End Date Shirlene Vergara MD [address] [place] [address] PCP - General Family Medicine 04/10/22 documented as of this encounter
--- OUTSIDE RECORDS SUMMARY | 2024-10-25 14:00 | XMS_ITS | Encounter Summary ---
Author Organization [facility] [employer] Sys tem Address [id number] [address] [place] [address] Care Team Providers Care Lathe Operator Contact Lens Name Role Phone Shirlene Vergara MD Primary Care Provider [phone] Encounter Details Date Type Department Care Team (Late st Contact Info) Description 10/05/2024 Telephone [facility] [address] [place] [address] Halie Escalona CMA Social History Tobacco Use Types Packs/Day Years Used Date Smoking Tobacco: Former Cigarettes Q uit: 12/30/1993 Smokeless Tobacco: Never Comments:QUIT IN 1989 Alcohol Use Standard Drinks/Week Comments Yes 1 (1 standard drink = 0.6 oz pur e alcohol) monthly [facility] Utilities Answer Date Recorded In the past 12 months has [email or web address], gas, oil, or water [employer] threatened to shut off services in your [...] 11/03/2024 10:40 AM EDT Office Visit [facility] [address] [place] [address] Delicia Rivera, FIRE SAFETY DIRECTOR-BARREL LINER [address] [place] [address] 01/25/2025 11:00 AM EST Office Visit [facility] [place] [address] Deuce Kirkland MD [address], [address] [address] documented as of this encounter Goals Goal [...] documented as of this encounter Care Teams Lathe Operator Contact Lens Relationship Specialty Start Date End Date Shirlene Vergara MD [address] [place] [address] PCP - General Family Medicine 04/10/22 documented as of this encounter
--- OUTSIDE RECORDS SUMMARY | 2024-10-25 14:01 | XMS_ITS | Encounter Summary ---
Author Organization [facility] Address [id number] [address] [place] [address] Care Team Providers Care Internet Architect Name Role Phone Shirlene Vergara MD Primary Care Provider [phone] Encounter Details Date Type Department Care Team (Late st Contact Info) Description 08/02/2024 Telephone [facility] [address] [place] [address] Deuce Kirkland MD [address], [facility] [address] [place] [address] Social History Tobacco Use Types Packs/Day Years Used Date Smoking Tobacco: Former Cigarettes Q uit: 12/30/1993 Smokeless Tobacco: Never Comments:QUIT IN 1989 Alcohol Use Standard Drinks/Week Comments Yes 1 (1 standard drink = 0.6 oz pur e alcohol) monthly [facility] Utilities Answer Date Recorded In the past 12 months has [employer], gas, oil, or water [employer] threatened to shut off services in your [...] encounter Miscellaneous Notes * Telephone Encounter - Barbara Milton - 08/02/2024 8:45 AM EDT Patient was seen last week and she was prescribed pain medication which the pain is still occurringper patient Daughter Joanna she also some questions and some concern she can be reached at [phone]. Please advise * Telephone Encounter - Sravanthi Vieira LPN - 08/02/2024 8:45 AM EDT Patient has an appt on 08/10 to see documented in this encounter Plan of Treatment Upcoming Encounters Date Type Department Care Team (Late st Contact Info) Description 11/03/2024 10:40 AM EDT Office Visit [facility] [address] [place] [address] Delicia Rivera, STONE BELT SANDER-MANAGER [address] [place] [address] 01/25/2025 11:00 AM EST Office Visit [facility] [place] [address] [place] [address] Deuce Kirkland MD [address], [address] [address] documented as of this encounter Goals Goal [...] documented as of this encounter Care Teams Internet Architect Relationship Specialty Start Date End Date Shirlene Vergara MD [address] [place] [address] PCP - General Family Medicine 04/10/22 documented as of this encounter
--- OUTSIDE RECORDS SUMMARY | 2024-10-25 14:01 | XMS_ITS | Encounter Summary ---
Author Organization [facility] Address [address] [place] [address] Care Team Providers Care C Wpf Developer Name Role Phone Shirlene Vergara MD Primary Care Provider [phone] Encounter Details Date Type Department Care Team (Late st Contact Info) Description 10/23/2024 Orders Only [address] [address] ProviderSilviano MD [address] [place], [place] [id number] Social History Tobacco Use Types Packs/Day Years [...] PM EDT documented as of this encounter Plan of Treatment Upcoming Encounters Date Type Department Care Team (Late st Contact Info) Description 01/18/2025 1:45 PM EST Office Visit [facility] [address] [place] [address] Jake Barry MD [address] [facility] [place] [address] documented as of this encounter Procedures Procedure Name Priority Date/Time Associated Diagnosis Comments B-TYPE NATRIURETIC PEPTIDE Routine 10/23/2024 8:33 AM EDT LIPID PANEL Routine 10/23/2024 8:33 AM EDT CARDIAC EVENT MONITOR Routine 08/24/2024 10:50 AM EDT documented in this encounter Results * B-type natriuretic peptide (10/23/2024 8:33 AM EDT) Blood Venous blood specimen / Unknown Historical Provider LAB BLOOD ORDERABLES Suzy l Result * Lipid panel (10/23/2024 8:33 AM EDT) Blood Venous blood specimen / Unknown Historical Provider LAB BLOOD ORDERABLES Suzy l Result * Cardiac event monitor (08/24/2024 10:50 AM EDT) Anatomical Region Laterality Modality Other Historical Provider [facility] Final Result documented in this encounter Visit Diagnoses Not on filedocumented in this encounter Care Teams C Wpf Developer Relationship Specialty Start Date End Date Shirlene Vergara MD [address] [facility] [address] PCP - General 12/05/21 documented as of this encounter
--- OUTSIDE RECORDS SUMMARY | 2024-10-25 14:01 | XMS_ITS | Encounter Summary ---
Author Organization [facility] Address [address] [place] [address] Care Team Providers Care Shuttlecock Assembler Name Role Phone Shirlene Vergara MD Primary Care Provider [phone] Encounter Details Date Type Department Care Team (Late st Contact Info) Description 05/03/2024 Orders Only [facility] [address] [facility] [address] [place] [address] Tyrese Girard MD [address] [facility] [address] [place] [address] Social History Tobacco Use Types [...] on filedocumented in this encounter Care Teams Shuttlecock Assembler Relationship Specialty Start Date End Date Shirlene Vergara MD PCP - General Family Medicine 07/18/22 documented as of this encounter
--- OUTSIDE RECORDS SUMMARY | 2024-10-25 14:01 | XMS_ITS | Clinical Summary ---
Author Organization [facility] Address [address] [place] [address] Care Team Providers Care Memory Care Program Director Name Role Phone Shirlene Vergara MD Primary Care Provider [phone] Allergies Active Allergy Reactions Criticality Noted Date [...] mouth in the morning. 11/05/19 22 Active cholecalciferol, vitamin D3, 50 mcg (2,000 unit) capsule Take 1 tablet by mouth in the morning. Active clopidogrel (Plavix) 75 mg tabletIndication s:Coronary artery disease, unspecified vessel or lesion type, unspecified whether angina present, unspecified whether tejon or transplanted heart TAKE 1 TABLET BY [...] at 6am and 6pm. 07/07/19 25 Active acidophilus-pect in, citrus 25 million cell -100 mg tablet Take 100 mg by mouth once daily as directed. Active cilostazol (Pletal) 50 mg tablet Take 50 mg by mouth two times daily. Active multivitamin-iro n-folic acid-minerals (Thera-M) 9 mg iron-400 mcg tablet Take 1 tablet by mouth in the morning. Active miscellaneous medical supply (Blood Pressure Cuff) miscIndications: Benign hypertensive heart disease with heart failure (CMS/HCC) 1 kit in the morning and at bedtime. 1 each 08/18/19 23 025 Discontin ued(Med List Cleanup) Active Problems Problem Noted Date Diagnosed Date Hematoma of arm, left, initial encounter 025 Moderate protein-energy malnutrition 08/25/2024 Overview (10/17/2024): Intake Diagnosis: Chronic disease or condition related malnutrition (NI 5.2.2) related to inadequate oral intake as evidenced by 4% wt loss over 2 wks/loss of 2.5 kg unintentionally, NFPE results of moderate muscle and fat loss, and NPO/CLD x3 days with decreased appetite OIL WELL SERVICE OPERATOR HELPER for 2 wks. 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 [...] (06/30/2022): Added automatically from request for surgery [id number] Closed fracture of neck of femur 06/07/2017 Encounters Date Type Department Care Team Description 10/23/2024 Orders Only [address] [address] ProviderSilviano MD 10/18/2024 1:20 PM EDT Office Visit [address] [address] Zeenat Arriola CNP Diastolic dysfunction (Primary Dx); Mixed hyperlipidemia; Nonrheumatic mitral valve regurgitation; Coronary artery disease involving tejon coronary artery of tejon heart without angina pectoris; Hx of CABG; Primary hypertension; Leg edema 07/31/[address] [place] [address] Roma Blackwell MA 07/26/2024 2:20 PM EDT Office Visit [address] [address] Zeenat Arriola CNP Tachycardia (Primary Dx); PAD (peripheral artery disease); Coronary artery disease involving tejon coronary artery of tejon heart without angina pectoris; Essential hypertension; Hx [...] Heterosexual or Straight 06/2024 3:11 PM EDT Last Filed Vital Signs Vital Sign Reading [...] Mass Index 20.09 10/18/2024 1:14 PM EDT Plan of Treatment Upcoming Encounters Date Type Department Care Team (Late st Contact Info) Description 01/18/2025 1:45 PM EST Office Visit [facility] [place] [address] [place] [address] Jake Barry MD [address] [facility] [address] [facility] [place] [address] Health Maintenance Due Date Last Done Comments Medicare Annual Wellness (AWV) 1936 Depression Screening 1948 Adult Tetanus 1958 Zoster Vaccines (1 of 2) 1986 Fall Risk Screening 2001 Pneumococcal Vaccine: 50+ Years (2 of 2 - PCV) 11/08/2018 11/08/2017, 11/09/2014 COVID-19 Vaccine ( season) 2024 11/23/2023, 10/26/2022, 01/15/2022, Additional history exists Influenza Vaccine (#1) 2024 , 02/16/2023, 01/15/2022, Additional history exists HIB Vaccines Aged [...] on patient's age to complete this topic Procedures Procedure Name Priority Date/Time Associated Diagnosis Comments B-TYPE NATRIURETIC PEPTIDE Routine 10/23/2024 8:33 AM EDT LIPID PANEL Routine 10/23/2024 8:33 AM EDT CARDIAC EVENT MONITOR Routine 08/24/2024 10:50 AM EDT from Last 3 Months Results * B-type natriuretic peptide (10/23/2024 8:33 AM EDT) Blood Venous blood specimen / Unknown Historical Provider LAB BLOOD ORDERABLES Suzy l Result * Lipid panel (10/23/2024 8:33 AM EDT) Blood Venous blood specimen / Unknown Historical Provider LAB BLOOD ORDERABLES Suzy l Result * Cardiac event monitor (08/24/2024 10:50 AM EDT) Anatomical Region Laterality Modality Other Historical Provider CV [facility]ARD[facility]AC [facility] Final Result from Last 3 Months Insurance MEDICARE [address] Care Teams Memory Care Program Director Relationship Specialty Start Date End Date Shirlene Vergara MD [address] [place] [address] #A PCP - General 12/05/21
--- OUTSIDE RECORDS SUMMARY | 2024-10-25 14:01 | XMS_ITS | Clinical Summary ---
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[facility]) 05/17/2024 Hip bursitis, left 11/02/2022 Primary osteoarthritis of left hip 11/02/2022 Coronary artery disease with angina pectoris Essential hypertension 11/02/2022 Arthritis of right knee 11/02/2022 Internal derangement of right knee 11/02/2022 Other abnormalities of gait and mobility 023 Complete tear of right rotator cuff 11/02/2022 Closed fracture of neck of femur 06/07/2017 Immunizations Immunization Administration Dates Next Due Influenza, [...] - PCV) 11/08/2018 11/08/2017, 11/09/2014 Influenza Vaccine (#1) 2024 , 02/16/2023, 01/15/2022, Additional history exists Insurance MEDICARE [facility] Care Teams Family Practice Medical Doctor Relationship Specialty Start Date End Date Shirlene Vergara MD PCP - General Family Medicine 07/18/22
--- OUTSIDE RECORDS SUMMARY | 2024-10-25 14:01 | XMS_ITS | Encounter Summary ---
Author Organization [employer] [facility] [employer] Address [facility] [id number] [address] [place] [address] Care Team Providers Care Water Pollution Control Technician Name Role Phone Shirlene Vergara MD Primary Care Provider [phone] Reason for Visit * Reason Onset Date Comments Cardiac Clearance 08/20/2024 Encounter Details Date Type Department Care Team (Late st Contact Info) Description 08/20/2024 Telephone [facility] [address] [place] [address] Nan Mckenna Cardiac Clearance Social History Tobacco Use Types Packs/Day Years Used Date Smoking Tobacco: Former Cigarettes Q uit: 12/30/1993 Smokeless Tobacco: Never Comments:QUIT IN 1989 Alcohol Use Standard Drinks/Week Comments Yes 1 (1 standard drink = 0.6 oz pur e alcohol) monthly [facility] Utilities Answer Date Recorded In the past 12 months has [employer]os[employer], gas, oil, or water [employer] threatened to shut off services in your [...] Audit-C Score Answer Date of Assessment Author 0 08/20/2024 5:53 PM Talia Cottrell RN * Question Answer Date of Assessment Author Q1: How often do you have a drink containing alcohol? Never 08/20/2024 5:53 PM Talia Cottrell, RN Q2: How many drinks containing alcohol do you have on a typical day when you are drinking? Patient does not drink 08/20/2024 5:53 PM Talia Cottrell, RN Q3: How often do you have six or more drinks on one occasion? Never 08/20/2024 5:53 PM Talia Cottrell, RN * Question Answer Date of Assessment Author Functional Status Independent 08/20/2024 5:53 PM EDT Talia López, KAYLYNN documented as of this encounter Miscellaneous Notes * Telephone Encounter - Nan Mckenna - 08/20/2024 3:24 PM EDT Contract: [facility] [id number] Re Cardiac Clearance * Telephone Encounter - Nan Mckenna - 08/20/2024 3:24 PM EDT Contract: [facility] Sent Secure chat to Korin documented in this encounter Plan of Treatment Upcoming Encounters Date Type Department Care Team (Late st Contact Info) Description 11/03/2024 10:40 AM EDT Office Visit [facility] [address] [place] [address] Delicia Rivera, BUDGET RECORD CLERK-CONING MACHINE OPERATOR [address] [place] [address] 01/25/2025 11:00 AM EST Office Visit [facility] [place] [address] [place] [address] Deuce Kirkland MD [address], [address] [address] documented as of this encounter Goals Goal [...] documented as of this encounter Care Teams Water Pollution Control Technician Relationship Specialty [place] [address] [place] [address] PCP - General Family Medicine 04/10/22 documented as of this encounter
--- OUTSIDE RECORDS SUMMARY | 2024-10-25 14:02 | XMS_ITS | Encounter Summary ---
Author Organization [facility] [employer] Sys tem Address [id number] [address] [place] [address] Care Team Providers Care Phone Engineer Name Role Phone Shirlene Vergara MD Primary Care Provider [phone] Encounter Details Date Type Department Care Team (Late st Contact Info) Description 10/04/2023 Telephone [facility] [address] [place] [address] Patience Danielle CMA Social History Tobacco Use [...] media. Daughter name and number is Joanna [phone] documented in this encounter Plan of Treatment Upcoming Encounters Date Type Department Care Team (Late st Contact Info) Description 11/03/2024 10:40 AM EDT Office Visit [facility] [address] [place] [address] Delicia Rivera, CRUSHER PLANT OPERATOR-[facility] [address] [place] [address] 01/25/2025 11:00 AM EST Office Visit [facility] [place] [address] [place] [address] Deuce Kirkland MD [address], [address] [address] documented as of this encounter Visit Diagnoses Not on filedocumented in this encounter Care Teams Phone Engineer Relationship Specialty Start Date End Date Shirlene Vergara MD [address] [place] [address] PCP - General Family Medicine 04/10/22 documented as of this encounter
--- OUTSIDE RECORDS SUMMARY | 2024-10-25 14:02 | XMS_ITS | Encounter Summary ---
Author Organization [facility] Address [facility] [id number] [address] [place] [address] Care Team Providers Care Dealer Sales Rep Name Role Phone Shirlene Vergara MD Primary Care Provider [phone] Encounter Details Date Type Department Care Team (Late st Contact Info) Description 11/25/2023 Orders Only [facility] [address] [place] [address] Deuce Kirkland MD [address], [facility] [address] [place] [address] Social History Tobacco Use Types Packs/Day Years Used Date Smoking Tobacco: Former Cigarettes Smokeless Tobacco: Never Comments:QUIT IN 1989 Alcohol Use Standard Drinks/Week Comments Yes 1 (1 standard drink = 0.6 oz pur e alcohol) [facility] Utilities Answer Date Recorded In the past 12 months has [employer], gas, oil, or water company threatened [...] Description 11/03/2024 10:40 AM EDT Office Visit [facility] [address] [place] [address] Delicia Rivera, MOLD CUTTING MACHINE OPERATOR-LANDCARE OFFICER [address] [place] [address] 01/25/2025 11:00 AM EST Office Visit [facility] [place] [address] Deuce Kirkland MD [address], [address] [address] documented as of this encounter Procedures Procedure [...] documented as of this encounter Care Teams Dealer Sales Rep Relationship Specialty Start Date End Date Shirlene Vergara MD [address] [place] [address] PCP - General Family Medicine 04/10/22 documented as of this encounter
--- OUTSIDE RECORDS SUMMARY | 2024-10-25 14:02 | XMS_ITS | Encounter Summary ---
Author Organization [facility] Address [address] [place] [address] Care Team Providers Care Factory Superintendent Name Role Phone Shirlene Vergara MD Primary Care Provider [phone] Encounter Details Date Type Department Care Team (Latest Contact Info) Description 04/29/2024 Abstract [facility] Tyrese Girard MD [address] [address] Social History Tobacco Use Types Packs/Day Years [...] on filedocumented in this encounter Care Teams Factory Superintendent Relationship Specialty Start Date End Date Shirlene Vergara MD PCP - General Family Medicine 07/18/22 documented as of this encounter
--- OUTSIDE RECORDS SUMMARY | 2024-10-25 14:02 | XMS_ITS | Encounter Summary ---
Author Organization [facility] Address [facility] [id number] [address] [place] [address] Care Team Providers Care Minute Clerk For Basic Traffic Name Role Phone Shirlene Vergara MD Primary Care Provider [phone] Encounter Details Date Type Department Care Team (Late st Contact Info) Description 11/17/2023 Orders Only [facility] [address] [place] [address] Deuce Kirkland MD [address], [facility] [address] [place] [address] Social History Tobacco Use Types Packs/Day Years Used Date Smoking Tobacco: Former Cigarettes Smokeless Tobacco: Never Comments:QUIT IN 1989 Alcohol Use Standard Drinks/Week Comments Yes 1 (1 standard drink = 0.6 oz pur e alcohol) [facility] Utilities Answer Date Recorded In the past 12 months has [employer], gas, oil, or water company threatened [...] Description 11/03/2024 10:40 AM EDT Office Visit [facility] [address] [place] [address] Delicia Rivera, PIECER UP-ONLINE FACILITATOR [address] [place] [address] 01/25/2025 11:00 AM EST Office Visit [facility] [place] [address] Deuce Kirkland MD [address], [address] [address] documented as of this encounter Procedures Procedure [...] on filedocumented in this encounter Care Teams Minute Clerk For Basic Traffic Relationship Specialty Start Date End Date Shirlene Vergara MD [address] [place] [address] PCP - General Family Medicine 04/10/22 documented as of this encounter
--- OUTSIDE RECORDS SUMMARY | 2024-10-25 14:02 | XMS_ITS | Encounter Summary ---
Author Organization [facility] Address [address] [place] [address] Care Team Providers Care Paper Folder Name Role Phone Shirlene Vergara MD Primary Care Provider [phone] Encounter Details Date Type Department Care Team (Latest Contact Info) Description 04/28/2024 Abstract [facility] EX[facility]P Tyrese Girard MD [address] [address] Social History Tobacco Use Types Packs/Day Years [...] on filedocumented in this encounter Care Teams Paper Folder Relationship Specialty Start Date End Date Shirlene Vergara MD PCP - General Family Medicine 07/18/22 documented as of this encounter
--- OUTSIDE RECORDS SUMMARY | 2024-10-25 14:02 | XMS_ITS | Encounter Summary ---
Author Organization [facility] Address [id number] [address] [place] [address] Care Team Providers Care Brass Wind Instrument Maker Name Role Phone Shirlene Vergara MD Primary Care Provider [phone] Encounter Details Date Type Department Care Team (Late st Contact Info) Description 10/25/2023 Telephone [facility] [address] [place] [address] Deuce Kirkland MD [address], [address] [address] Social History Tobacco Use Types Packs/Day Years [...] Please advise, Joanna can be reached at [phone] documented in this encounter Plan of Treatment Upcoming Encounters Date Type Department Care Team (Late st Contact Info) Description 11/03/2024 10:40 AM EDT Office Visit [facility] [address] [place] [address] Delicia Rivera, TECHNICAL PROPOSAL WRITER-RAIL TRACK LAYER [address] [place] [address] 01/25/2025 11:00 AM EST Office Visit [facility] [place] [address] [place] [address] Deuce Kirkland MD [address], [address] [address] documented as of this encounter Visit Diagnoses Not on filedocumented in this encounter Care Teams Brass Wind Instrument Maker Relationship Specialty Start Date End Date Shirlene Vergara MD [address] [place] [address] PCP - General Family Medicine 04/10/22 documented as of this encounter
--- OUTSIDE RECORDS SUMMARY | 2024-10-25 14:02 | XMS_ITS | Patient Health Record ---
Author Organization [facility] [place] Address [address] [place] [address] Care Team Providers Care Manager Community Relations Name Role Phone Shirlene Vergara Primary Care Provider Unavailabl e Allergies Allergen (clinical drug ingredient) Drug/Non Drug Allergy documented on EMR Reaction Allergy Type Onset Date Status diphenhydramine Benadryl Unknown Drug Allergy A ctive Darvocet-N 100 Unknown Drug Allergy Ac tive gemfibrozil Lopid Unknown Drug Allergy Activ e promethazine Phenergan Unknown Drug Allergy Acti ve ezetimibe Zetia Unknown Drug Allergy Active Non-steroidal anti-inflammatory agent (FN) NSAIDs Unknown Drug Allergy Active Reason For Referral No Information Social History Tobacco Use: Social History Observation Description Date Details (start date - stop date) Never Smoker NA - NA Tobacco Use/Smoking Question Answer Notes Patient is a nonsmoker Problems Problem Type SNOMED Code ICD Code Onset Dates Problem Status W/U Status Risk Notes Problem Peripheral vascular disease (899151759) Peripheral vascular disease, unspecified (I73.9) Active confirmed Problem Leukocytosis (300057753) Elevated white blood cell count, unspecified (D72.829) Active confirmed Problem Peripheral venous insufficiency (24950728) Venous insufficiency (chronic) (peripheral) (I87.2) Active confirmed Problem 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) (118952128417970) 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 (I87.311) Active confirmed Problem Ingrowing nail (339204763) Ingrowing nail (L60.0) Active confirmed Problem Chronic ulcer of lower extremity (47482093) Non-pressure chronic ulcer of other part of right lower leg limited to breakdown of skin (L97.811) Active confirmed Problem 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 level (66514429772002287) Non-pressure chronic ulcer of other part of right lower leg with fat layer exposed (L97.812) Active confirmed Problem Gastroesophageal reflux disease (776552511) GERD (gastroesophageal reflux disease) (K21.9) Active confirmed Problem Coronary artery disease (55031609) CAD (coronary artery disease) (I25.10) Active confirmed Problem Hypertension (31727123) HTN (hypertension) (I10) Active confirmed Problem Peripheral vascular disease (457266073) Other peripheral vascular disease (I73.89) Active confirmed Problem Chronic venous 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 (I87.333) Active confirmed Problem Essential hypertension (77524074) BP (high blood pressure) (I10) Active confirmed Problem 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) Active confirmed Problem Non-pressure chronic ulcer of right lower leg, limited to breakdown of skin (L97.911) Active confirmed Problem Unstageable pressure injury of right heel (disorder) (45647925462041479) Pressure injury of right heel, unstageable (L89.610) Active confirmed Problem Patient immunocompromised (095465682) 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) Active confirmed Problem Chronic ulcer of right heel (disorder) (36040793679708941) Chronic ulcer of right heel limited to breakdown of skin (L97.411) Active confirmed Plan Of Treatment Pending Test Test Name Order Date XR ankle RT min 3V 09/11/2023 US arterial duplex LE RT 09/16/2023 Insurance Providers Payer Name Payer Address Payer Phone Subscriber Number Group Number Insured Name Patient Relationship to Insured Coverage Start Date Coverage End Date [place] [address] [place] [address] [phone] [id number] Delicia Sanderson Self - patient is the insured [facility] [address] [place] [address] [phone] [id number] Delicia Sanderson Self - patient is the insured 0
--- OUTSIDE RECORDS SUMMARY | 2024-10-25 14:02 | XMS_ITS | Encounter Summary ---
Author Organization [facility] Address [facility] [id number] [address] [place] [address] Care Team Providers Care Assisted Living Assistant Name Role Phone Shirlene Vergara MD Primary Care Provider [phone] Encounter Details Date Type Department Care Team (Late Contact Info) Description 12/29/2021 Orders Only [facility] [address] [place] [address] Marlen De La Rosa CMA Social History [...] Department Care Team (Late Contact Info) Description 11/03/2024 10:40 AM EDT Office Visit [facility] [address] [place] [address] Delicia Rivera, STOCK CLIPPER-ARCHITECTURE PROFESSOR [address] [place] [address] 01/25/2025 11:00 AM EST Office Visit [facility] [place] [address] [place] [address] Deuce Kirkland MD [address], [address] [address] documented as of this encounter Visit Diagnoses Not on filedocumented in this encounter Care Teams Assisted Living Assistant Relationship Specialty Start Date End Date Shirlene Vergara MD [address] [place] [address] PCP - General Family Medicine 04/10/22 documented as of this encounter
--- OUTSIDE RECORDS SUMMARY | 2024-10-25 14:02 | XMS_ITS | Encounter Summary ---
Author Organization [facility] Address [facility] [id number] [address] [place] [address] Care Team Providers Care Assistant Professor Of Philosophy Name Role Phone Shirlene Vergara MD Primary Care Provider [phone] Encounter Details Date Type Department Care Team (Late st Contact Info) Description 10/19/2023 Orders Only [facility] [address] [place] [address] Deuce Kirkland MD [address], [facility] [address] [place] [address] Social History Tobacco Use Types Packs/Day Years [...] Description 11/03/2024 10:40 AM EDT Office Visit [facility] [address] [place] [address] Delicia Rivera, CHIEF BANK EXAMINER-OPTICAL FABRICATOR [address] [place] [address] 01/25/2025 11:00 AM EST Office Visit [facility] [place] [address] Deuce Kirkland MD [address], [address] [address] documented as of this encounter Procedures Procedure [...] on filedocumented in this encounter Care Teams Assistant Professor Of Philosophy Relationship Specialty Start Date End Date Shirlene Vergara MD [address] [place] [address] PCP - General Family Medicine 04/10/22 documented as of this encounter
--- OUTSIDE RECORDS SUMMARY | 2024-10-25 14:02 | XMS_ITS | Encounter Summary ---
Author Organization [facility] Address [facility] [id number] [address] [place] [address] Care Team Providers Care Net Repairer Name Role Phone Shirlene Vergara MD Primary Care Provider [phone] Encounter Details Date Type Department Care Team (Late st Contact Info) Description 10/18/2023 Telephone [facility] [address] [place] [address] Deuce Kirkland MD [address], [address] [address] Social History Tobacco Use Types Packs/Day Years [...] patient's daughter is calling because she thought was goingto be scheduling her for a [...] Thank you- Joanna can be reached at [phone] if we need to make any adjustments. * Telephone Encounter - Citlali Garcia CMA - 10/18/2023 9:01 AM EDT Thank you , I called daughter back documented in this encounter Plan of Treatment Upcoming Encounters Date Type Department Care Team (Late st Contact Info) Description 11/03/2024 10:40 AM EDT Office [facility] [address] [place] [address] Delicia Rivera, JUICE WEIGHER-OFFICE CORRESPONDENT [address] [place] [address] 01/25/2025 11:00 AM EST Office Visit [facility] [place] [address] [place] [address] Deuce Kirkland MD [address], [address] [address] documented as of this encounter Visit Diagnoses Not on filedocumented in this encounter Care Teams Net Repairer Relationship Specialty Start Date End Date Shirlene Vergara MD [address] [place] [address] PCP - General Family Medicine 04/10/22 documented as of this encounter
--- OUTSIDE RECORDS SUMMARY | 2024-10-25 14:02 | XMS_ITS | Clinical Summary ---
Author Organization [employer]ter [employer] tem Address [id number] [address] [place] [address] Care Team Providers Care Human Resource Statistician Name Role Phone Shirlene Vergara MD Primary Care Provider [phone] Allergies Active Allergy Reactions Criticality Noted Date [...] the morning. Indications: gastroesophageal reflux disease. Active melatonin 10 mg tablet Take 1 tablet by mouth nightly. Active cholecalciferol, vitamin D3, (D3-50 CHOLECALCIFEROL ORAL) Take 1 tablet by mouth in the morning. Active loperamide (IMODIUM A-D) 2 mg tablet Take 2 tablets (4 mg total) by mouth as needed. Active acetaminophen (TYLENOL EXTRA STRENGTH) 500 mg tablet Take 2 tablets (1,000 mg total) by mouth every 6 (six) hours as needed for pain. 30 tablet Active clopidogreL (PLAVIX) 75 mg tabletIndications: myocardial [...] tablet by mouth daily with breakfast. Active nebivoloL (BYSTOLIC) 10 mg tabletIndications: hypertension Take 1 tablet (10 mg total) by mouth in the morning. Indications: high blood pressure. Active aspirin 81 mg Take 1 tablet (81 mg total) by mouth in the morning. Active zouzpdki-dhbx-QA-c alcium &mins (THERAGRAN-M) 9 mg iron-400 mcg tablet Take 1 tablet by mouth in the morning. Active cilostazoL (PLETAL) 50 mg tablet Take 1 tablet (50 mg total) by mouth in the morning and 1 tablet (50 mg total) before bedtime. Active sulfamethoxazole-t rimethoprim (BACTRIM DS) 800-160 mg per tablet Take 1 tablet by mouth in the morning and 1 tablet before bedtime. 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 Protect the feet from any wounds or trauma. 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 10/14/2023 Overview (11/18/2023): [...] (01/06/2022): Added automatically from request for surgery [id number] Assessment & Plan (07/27/2024 11:33 AM EDT): [...] Encounters Date Type Department Care Team Description 10/20/2024 11:00 AM EDT Office Visit [facility] [address] [place] [address] Delicia Rivera, CLUB CAR ATTENDANT-STOCK UNLOADER Pressure injury of right heel, unstageable (CMS-HCC) (Primary Dx); Hematoma of arm, left, subsequent encounter; 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) 10/18/2024 Travel 10/13/2024 1:20 PM EDT Office Visit [facility] [address] [place] [address] Delicia Rivera, CLUB CAR ATTENDANT-STOCK UNLOADER Hematoma of arm, left, subsequent encounter (Primary Dx) 10/12/2024 Telephone [facility] Wound Care Outpatient [address] [place] [address] Indy Scherer, KAYLYNN Care Navigation 10/11/2024 Travel 10/05/2024 Telephone [facility] [address] [place] [address] Halie Escalona CMA 10/03/2024 11:20 AM EDT Office Visit [facility] [address] [facility] [address] Delicia Rivera, CLUB CAR ATTENDANT-STOCK UNLOADER Hematoma of arm, left, subsequent encounter (Primary Dx) 10/02/2024 Travel 09/20/2024 10:40 AM EDT Office Visit [facility] Wound Care [facility] [address] [place] [address] Delicia Rivera, CLUB CAR ATTENDANT-STOCK UNLOADER Hematoma of arm, left, initial encounter 09/18/2024 Travel 09/14/2024 9:00 AM EDT Office Visit [facility] [place] [address] [place] [address] Deuce Kirkland MD 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 [place] [address] Lurdes Lorenzo MD Conlee, Drew, APRN-SENIOR MANUFACTURING SUPERVISOR 08/22/2024 5:00 PM EDT - 08/22/2024 7:43 PM EDT Surgery [facility] Surgery [address] [place] [address] Deuce Kirkland MD GRAFT EXPLANT - RIGHT LOWER EXTREMITY/ REPAIR OF FEMORAL AND POPLITEAL ARTERY 08/22/2024 Travel 08/20/2024 Telephone [facility] [address] [place] [address] Nan Mckenna Cardiac Clearance 08/19/2024 2:58 AM EDT - 09/07/2024 5:34 PM EDT Hospital Encounter [facility] Acute [address] [place] [address] Alban Barrientos MD Hejeebu, Srini K, Lupillo Auguste MD Khorsand Askari, Mani, MD Kayyali, Ammar I, MD PAD (peripheral artery disease) (Primary Dx) Discharge Disposition: [facility] Facility-Medicare Cert 08/19/2024 Telephone [facility] [address] [place] [address] Demi Alvarado Fever 08/18/2024 1:45 PM EDT Ancillary Procedure [facility] External Film Storage [address] [place] [id number] Pain 08/18/2024 Telephone [facility] [address] Sara Westbrook 08/17/2024 Travel 08/10/2024 10:10 AM EDT Office Visit [facility] [place] [address] [place] [address] Deuce Kirkland MD 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 ([facility]) (Primary Dx) 08/10/2024 Travel 08/02/2024 Telephone [facility] [place] [address] Deuce Kirkland MD 07/27/2024 10:40 AM EDT Office Visit [facility] [place] [address] [place] [address] Deuce Kirkland MD PAD (peripheral artery disease) (Primary Dx) 07/26/2024 Travel from Last 3 Months Immunizations Immunization [...] = 0.6 oz pur e alcohol) monthly [facility] Utilities Answer Date Recorded In the past 12 months has Where I've Been, gas, oil, or water [employer] threatened to shut off services in your [...] 16 10/20/2024 11:09 AM EDT Oxygen Saturation 98% 09/07/2024 3:38 PM EDT Inhaled Oxygen Concentration - - Weight 59 kg (130 lb) 09/14/2024 9:13 AM EDT Height 175.3 cm (5' 9 ) 09/14/2024 9:13 AM EDT Body Mass Index 19.2 09/14/2024 9:13 AM EDT Plan of Treatment Upcoming Encounters Date Type Department Care Team (Late st Contact Info) Description 11/03/2024 10:40 AM EDT Office Visit [facility] [address] [place] [address] Delicia Rivera, CLUB CAR ATTENDANT-STOCK UNLOADER [address] [place] [address] 01/25/2025 11:00 AM EST Office Visit [facility] [place] [address] [place] [address] Deuce Kirkland MD [address], [address] [phone] Health Maintenance Due Date Last Done Comments DTaP,Tdap and Td Vaccines (1 - Tdap) 09/29/1954 Zoster (Shingles) Vaccine (1 of 2) 1986 Fall Risk Screening 2001 COVID-19 Vaccine (8 2023-2 5 season) 2024 11/23/2023, 10/26/2022, 01/15/2022, Additional history exists Influenza Vaccine 10/09/2024 11/23/2023, , 01/15/2022, Additional history exists Depression Screening 08/20/2025 08/20/2024 Tobacco Screening 10/20/2025 10/20/2024 Goals Goal Patient Goal Type Associated Problems Recent Progress Patient-Stated? Author Daughter stated: Discharge to SNF and then back to independent living General Yes Kelly Badillo, RN Note: Evaluation of progress towards goal: progressing towards discharge Medical Devices Implanted Type Area Botany Teacher Device Identifier Shelf Expiration Date Model / Serial / Lot Graft Vsc 80cm 8mm [place] Thnwl Propaten Hep Ptfe Rem Rng - [id number] - [id number] Implanted:Qty: 1 on 01/01/2024 by Deuce Kirkland MD at [facility] Graft Right: Arterial [place] 09/29/2026 [id number] / [id number] / Description:RIGHT FEMORAL - POPLITEAL ARTERY Incv/Patch Cv 8x.8cm N-Pyrg Tpr End Photofix Decellularized Bvn Rpl [id number] Use [id number] - [id number] Implanted:Qty: 1 on 01/01/2024 by Deuce Kirkland MD at [facility] Graft Right: Arterial [employer] 06/11/2025 [id number] / / [id number] Description:RIGHT FEMORAL AR FINESSE Stent 7fr 135cm Vbx Ba Ppm Expandable Cath Hep Vbhn Eprsth 8 Rpl [id number] - [id number] - [id number] Implanted:Qty: 1 on 01/01/2024 by Deuce Kirkland MD at [facility] Stent Right: Arterial [place] 07/27/2026 [id number] / [id number] / Description:RIGHT ILIAC SANDRITA RY Procedures Procedure Name Priority Date/Time Associated Diagnosis Comments NURSING COMMUNICATION Routine 10/13/2024 2:06 PM EDT Hematoma of arm, left, subsequent encounter NURSING COMMUNICATION Routine 10/13/2024 2:05 PM EDT Hematoma of arm, left, subsequent encounter DEBRIDEMENT Routine 10/13/2024 1:20 PM EDT Hematoma of arm, left, subsequent encounter NURSING COMMUNICATION Routine 10/03/2024 12:06 PM EDT DEBRIDEMENT Routine 10/03/2024 11:20 AM EDT Hematoma of arm, left, subsequent encounter DEBRIDEMENT Routine 09/20/2024 10:40 AM EDT Hematoma of arm, left, initial encounter BASIC METABOLIC PANEL Routine 09/07/2024 4:05 AM EDT CBC WITH AUTO DIFFERENTIAL Routine 09/07/2024 4:05 AM EDT OXYGEN THERAPY Routine 09/06/2024 8:00 AM EDT BASIC METABOLIC PANEL Routine 09/06/2024 4:53 AM EDT CBC WITH AUTO DIFFERENTIAL Routine 09/06/2024 4:53 AM EDT BLOOD CULTURE Routine 09/06/2024 4:[address] ABDOMEN AND PELVIS WO CONT Routine 09/05/2024 11:35 AM EDT BLOOD CULTURE STAT 09/05/2024 10:40 AM EDT EXTRA TUBES PST TOP Routine 09/05/2024 3 :47 AM EDT BASIC METABOLIC PANEL Add-On 09/05/2024 3:47 AM EDT EXTRA TUBES Routine 09/05/2024 3:47 AM EDT CBC WITH AUTO DIFFERENTIAL Routine 09/05/2024 3:47 AM EDT FL SWALLOW MOTILITY FUNCTION Routine 09/04/2024 8:38 AM EDT CBC WITH AUTO DIFFERENTIAL Routine 09/04/2024 4:04 AM EDT EXTRA TUBES PST TOP Routine 09/04/2024 3 :59 AM EDT EXTRA TUBES Routine 09/04/2024 3:59 AM EDT CBC WITH AUTO DIFFERENTIAL Routine 09/03/2024 5:08 AM EDT CBC WITH AUTO DIFFERENTIAL Routine 09/02/2024 5:26 AM EDT XR ABD NG TUBE PLACEMENT 1 VIEW STAT 09/01/2024 9:31 PM EDT S PNEUMONIAE AG U STAT Add-on 09/01/2024 2:1 5 PM EDT LEGIONELLA ANTIGEN, URINE STAT Add-on 09/01/2024 2:15 PM EDT PHOSPHORUS Routine 09/01/2024 11:16 AM EDT IONIZED MAGNESIUM Routine 09/01/2024 11: 16 AM EDT IONIZED CALCIUM Routine 09/01/2024 11:16 AM EDT EXTRA TUBES PST TOP Routine 09/01/2024 4 :06 AM EDT EXTRA TUBES Routine 09/01/2024 4:06 AM EDT CBC WITH AUTO DIFFERENTIAL Routine 09/01/2024 4:05 AM EDT XR ABDOMEN AP 1 VW STAT 08/31/2024 6: 56 PM EDT RESP PATHOGENS PANEL/SARS-COV-2 STAT 08/31/2024 9:51 AM EDT MRSA PCR NASAL SWAB STAT 08/31/2024 9 :51 AM EDT EXTRA TUBES PST TOP Routine 08/31/2024 4 :31 AM EDT EXTRA TUBES Routine 08/31/2024 4:31 AM EDT CBC WITH AUTO DIFFERENTIAL Routine 08/31/2024 4:31 AM EDT EXTRA TUBES LAVENDER TOP Routine 08/30/2024 7:16 PM EDT EXTRA TUBES Routine 08/30/2024 7:16 PM EDT BASIC METABOLIC PANEL STAT 08/30/2024 7:16 PM EDT AMMONIA STAT 08/30/2024 7:16 PM EDT LACTATE W/ REFLEX STAT 08/30/2024 7:1 6 PM EDT BLOOD GAS, ARTERIAL Routine 08/30/2024 6 :27 PM EDT XR CHEST 1 VW STAT 08/30/2024 6:09 PM EDT HEPARIN ANTI XA, UNFRACTIONATED Routine 08/30/2024 5:18 AM EDT CBC WITH AUTO DIFFERENTIAL Routine 08/30/2024 5:18 AM EDT OXYGEN THERAPY Routine 08/29/2024 8:00 PM EDT BASIC METABOLIC PANEL Add-On 08/29/2024 3:24 AM EDT HEPARIN ANTI XA, UNFRACTIONATED Routine 08/29/2024 3:24 AM EDT PHOSPHORUS Routine 08/29/2024 3:24 AM EDT IONIZED MAGNESIUM Routine 08/29/2024 3:2 4 AM EDT CBC WITH AUTO DIFFERENTIAL Routine 08/29/2024 3:24 AM EDT URINALYSIS Routine 08/28/2024 10:16 PM EDT PHOSPHORUS Routine 08/28/2024 5:53 PM EDT POTASSIUM Routine 08/28/2024 5:53 PM EDT IONIZED CALCIUM Routine 08/28/2024 5:53 PM EDT IONIZED MAGNESIUM Routine 08/28/2024 5:5 3 PM EDT COMPREHENSIVE METABOLIC PANEL Add-On 08/28/2024 2:20 AM EDT IONIZED MAGNESIUM Routine 08/28/2024 2:2 0 AM EDT CBC WITH AUTO DIFFERENTIAL Routine 08/28/2024 2:20 AM EDT PHOSPHORUS Routine 08/28/2024 2:20 AM EDT HEPARIN ANTI XA, UNFRACTIONATED Routine 08/28/2024 2:19 AM EDT OXYGEN THERAPY Routine 08/27/2024 8:00 PM EDT HEPARIN ANTI XA, UNFRACTIONATED Routine 08/27/2024 2:48 AM EDT PHOSPHORUS Routine 08/27/2024 2:48 AM EDT IONIZED MAGNESIUM Routine 08/27/2024 2:4 8 AM EDT BASIC METABOLIC PANEL Routine 08/27/2024 2:48 AM EDT CBC WITH AUTO DIFFERENTIAL Routine 08/27/2024 2:48 AM EDT HEPARIN ANTI XA, UNFRACTIONATED Routine 08/26/2024 8:43 PM EDT PHOSPHORUS Routine 08/26/2024 8:43 PM EDT IONIZED CALCIUM Routine 08/26/2024 2:48 PM EDT PHOSPHORUS Routine 08/26/2024 2:48 PM EDT POTASSIUM Routine 08/26/2024 2:48 PM EDT IONIZED MAGNESIUM Routine 08/26/2024 2:4 8 PM EDT HEMOGLOBIN AND HEMATOCRIT, BLOOD STAT 08/26/2024 7:48 AM EDT TYPE AND SCREEN Routine 08/26/2024 2:18 AM EDT HEPARIN ANTI XA, UNFRACTIONATED Routine 08/26/2024 2:18 AM EDT BASIC METABOLIC PANEL Routine 08/26/2024 2:18 AM EDT CBC WITH AUTO DIFFERENTIAL Routine 08/26/2024 2:18 AM EDT PHOSPHORUS Routine 08/26/2024 2:18 AM EDT IONIZED MAGNESIUM Routine 08/26/2024 2:1 8 AM EDT IONIZED CALCIUM Routine 08/26/2024 2:18 AM EDT HEPARIN ANTI XA, UNFRACTIONATED Routine 08/25/2024 8:52 PM EDT XR ABDOMEN AP 1 VW Routine 08/25/2024 11 :56 AM EDT HEMOGLOBIN AND HEMATOCRIT, BLOOD Routine 08/25/2024 11:34 AM EDT HEPARIN ANTI XA, UNFRACTIONATED Routine 08/25/2024 11:34 AM EDT TRANSFUSE RED BLOOD CELLS Routine 08/25/2024 8:25 AM EDT TRANSFUSE RED BLOOD CELLS Routine 08/25/2024 4:45 AM EDT HEPARIN ANTI XA, UNFRACTIONATED Routine 08/25/2024 3:31 AM EDT BASIC METABOLIC PANEL Routine 08/25/2024 3:31 AM EDT CBC WITH AUTO DIFFERENTIAL Routine 08/25/2024 3:31 AM EDT HEPARIN ANTI XA, UNFRACTIONATED Routine 08/24/2024 8:11 PM EDT OXYGEN THERAPY Routine 08/24/2024 8:00 PM EDT HEPARIN ANTI XA, UNFRACTIONATED Routine 08/24/2024 12:20 PM EDT OXYGEN THERAPY Routine 08/24/2024 8:00 AM EDT BASIC METABOLIC PANEL Routine 08/24/2024 2:47 AM EDT IONIZED MAGNESIUM Routine 08/24/2024 2:1 9 AM EDT IONIZED CALCIUM Routine 08/24/2024 2:19 AM EDT HEPARIN ANTI XA, UNFRACTIONATED Routine 08/24/2024 2:19 AM EDT CBC WITH AUTO DIFFERENTIAL Routine 08/24/2024 2:19 AM EDT HEPARIN ANTI XA, UNFRACTIONATED Routine 08/23/2024 10:08 PM EDT RESP ARTERIAL LINE SETUP Routine 08/23/2024 3:46 PM EDT RESP ARTERIAL LINE SETUP Routine 08/23/2024 3:46 PM EDT RESP ARTERIAL LINE SETUP Routine 08/23/2024 3:46 PM EDT RESP ARTERIAL LINE SETUP Routine 08/23/2024 3:46 PM EDT HEPARIN ANTI XA, UNFRACTIONATED Routine 08/23/2024 12:41 PM EDT PROTIME & INR Routine 08/23/2024 12:41 PM EDT APTT Routine 08/23/2024 12:41 PM EDT PLATELET COUNT Routine 08/23/2024 12:41 PM EDT HEMOGLOBIN Routine 08/23/2024 12:41 PM EDT OXYGEN THERAPY Routine 08/23/2024 8:00 AM EDT IONIZED MAGNESIUM Routine 08/23/2024 2:1 5 AM EDT IONIZED CALCIUM Routine 08/23/2024 2:15 AM EDT BASIC METABOLIC PANEL Routine 08/23/2024 2:15 AM EDT CBC WITH AUTO DIFFERENTIAL Routine 08/23/2024 2:15 AM EDT HEPARIN ANTI XA, UNFRACTIONATED Routine 08/23/2024 2:15 AM EDT PROTIME & INR Routine 08/22/2024 10:23 PM EDT APTT Routine 08/22/2024 10:23 PM EDT PLATELET COUNT Routine 08/22/2024 10:23 PM EDT HEMOGLOBIN Routine 08/22/2024 10:23 PM EDT OXYGEN THERAPY Routine 08/22/2024 9:44 PM EDT TISSUE CULTURE Routine 08/22/2024 9:00 PM EDT FUNGAL CULTURE INCLUDES FUNGAL SMEAR Routine 08/22/2024 9:00 PM EDT ANAEROBIC CULTURE Routine 08/22/2024 9:0 0 PM EDT POCT ABG RAPID NA K GLU ICA HH Routine 08/22/2024 8:17 PM EDT WOUND CULTURE SURGICAL DEEP INCLUDES GRAM STAIN Routine 08/22/2024 8:03 PM EDT FUNGAL CULTURE INCLUDES FUNGAL SMEAR Routine 08/22/2024 8:03 PM EDT ANAEROBIC CULTURE Routine 08/22/2024 8:0 3 PM EDT TRANSFUSE RED BLOOD CELLS STAT 08/22/2024 7:33 PM EDT WI ANES ART LINE Routine 08/22/2024 7:24 PM EDT WI AN ELECTIVE ENDOTRACHEAL AIRWAY Routine 08/22/2024 6:36 PM EDT THROMBECTOMY/EMBOLECTO MY LOWER EXTREMITY 08/22/2024 6:18 PM EDT RIGHT LOWER EXTREMITY BYPASS OCCLUSION TYPE AND SCREEN STAT 08/22/2024 4:35 PM EDT CROSSMATCH RBC Routine 08/22/2024 4:30 PM EDT CROSSMATCH RBC Routine 08/22/2024 4:30 PM EDT CROSSMATCH RBC STAT 08/22/2024 4:30 PM EDT CBC WITH AUTO DIFFERENTIAL Routine 08/22/2024 4:56 AM EDT EXTRA TUBES PST TOP Routine 08/22/2024 4 :51 AM EDT EXTRA TUBES Routine 08/22/2024 4:51 AM EDT VASC ARTERIAL DUPLEX PSEUDOANEURYSM RIGHT Routine 08/21/2024 12:26 PM EDT BASIC METABOLIC PANEL Routine 08/21/2024 7:47 AM EDT CBC WITH AUTO DIFFERENTIAL Routine 08/21/2024 4:05 AM EDT ECG 12-LEAD STAT 08/20/2024 5:50 PM EDT XR KNEE RT 3 VWS Routine 08/20/2024 3:32 PM EDT BLOOD CULTURE Routine 08/20/2024 10:37 AM EDT BLOOD CULTURE STAT 08/20/2024 10:33 AM EDT VANCOMYCIN, RANDOM Routine 08/20/2024 4: 13 AM EDT VITAMIN B12 Routine 08/20/2024 4:13 AM EDT IRON AND TIBC Routine 08/20/2024 4:13 AM EDT FOLATE Routine 08/20/2024 4:13 AM EDT CBC WITH AUTO DIFFERENTIAL Routine 08/20/2024 4:13 AM EDT VASC ARTERIAL DOPPLER LOWER BILATERAL MULTI LEVEL/PVR Routine 08/19/2024 2:51 PM EDT VASC ARTERIAL DUPLEX LOWER GRAFT SCAN BILATERAL Routine 08/19/2024 2:51 PM EDT BLOOD CULTURE IDENTIFICATION PANEL Routine 08/19/2024 10:04 AM EDT BLOOD CULTURE STAT 08/19/2024 10:04 AM EDT BLOOD CULTURE STAT 08/19/2024 10:03 AM EDT BASIC METABOLIC PANEL STAT Add-on 08/19/2024 8:56 AM EDT C-REACTIVE PROTEIN Routine 08/19/2024 8: 56 AM EDT ERYTHROCYTE SEDIMENTATION RATE (ESR) Routine 08/19/2024 8:56 AM EDT FERRITIN Routine 08/19/2024 8:56 AM EDT RETICULOCYTES Routine 08/19/2024 8:56 AM EDT LDH Routine 08/19/2024 8:56 AM EDT HAPTOGLOBIN Routine 08/19/2024 8:[address] CTA ABD AORTA W RUNOFF Routine 08/18/2024 1:45 PM EDT Pain from Last 3 Months Results * Adaptic (10/13/2024 2:06 PM EDT) Only the most recent of3 resultswithin the time period is included. Narrative MANUALLY TRANSCRIBED RESULTS - 10/13/2024 2:06 PM EDT Applied in clinic us Delicia PARK NURSING COMMUNICATION Fin al Result MANUALLY TRANSCRIBED RESULTS * Debridement (10/13/2024 1:20 PM EDT) Narrative MANUALLY TRANSCRIBED RESULTS - 10/13/2024 1:20 PM EDT XAVIER Montanez 10/13/2024 2:21 PM Debridement Performed by: XAVIER Montanez Authorized by: XAVIER Montanez Associated wounds: Wound 09/20/24 1 Traumatic Arm Left;Posterior Consent: Consent obtained: Verbal and written Consent given by: Patient Risks discussed: Yes Debridement Details: Performed by: SODA COLUMN OPERATOR Type: Selective Tissue, Devitalized tissue and other material debrided: Clots and slough Anesthesia administration: topical Anesthesia: EMLA Total Surface Area Debrided cm^2: 12.96 Specimen Taken: None Other Specimen Taken: Pending wound culture obtained in nursing facility Instrument: Scissors Other Instrument: Moist swab Bleeding Control: Pressure Response to treatment: Procedure was tolerated well Tissue Applied?: No Delicia PARK PROCEDURE/MINOR SURGICAL ORDERABLES Final Result Performing Organization Address [facility] de Phone Number MANUALLY TRANSCRIBED RESULTS * Debridement (10/03/2024 11:20 AM EDT) Narrative MANUALLY TRANSCRIBED RESULTS - 10/03/2024 11:20 AM EDT XAVIER Montanez 10/03/2024 12:20 PM Debridement Performed by: XAVIER Montanez Authorized by: XAVIER Montanez Associated wounds: Wound 09/20/24 1 Traumatic Arm Left;Posterior Consent: Consent obtained: Verbal and written Consent given by: Patient Risks discussed: Yes Debridement Details: Performed by: SODA COLUMN OPERATOR Type: Sharp Level: Muscle Tissue, Devitalized tissue and other material debrided: Subcutaneous tissue, fibrin, clots, slough and necrotic debris Anesthesia administration: topical Anesthesia: EMLA Total Surface Area Debrided cm^2: 2.12 Specimen Taken: None Instrument: Curette Amount of bleeding: Medium Bleeding Control: Pressure Response to treatment: Procedure was tolerated well Tissue Applied?: No Result [facility] Delicia PARK PROCEDURE/MINOR SURGICAL ORDERABLES Final Result Performing Organization Address [facility] de Phone Number MANUALLY TRANSCRIBED RESULTS * Debridement (09/20/2024 10:40 AM EDT) Narrative MANUALLY TRANSCRIBED RESULTS - 09/20/2024 10:40 AM EDT XAVIER Montanez 09/20/2024 2:09 PM Debridement Performed by: XAVIER Montanez Authorized by: XAVIER Montanez Associated wounds: Wound 09/20/24 1 Traumatic Arm Left;Posterior Consent: Consent obtained: Verbal and written Consent given by: Patient Risks discussed: Yes Debridement Details: Performed by: SODA COLUMN OPERATOR Type: Sharp Level: Muscle Tissue, Devitalized tissue and other material debrided: Subcutaneous tissue, clots, nectrotic debris, slough and muscle Anesthesia administration: topical Anesthesia: EMLA Total Surface Area Debrided cm^2: 5.5 Specimen Taken: None Instrument: Curette, scissors and adson Amount of bleeding: Large Bleeding Control: Pressure Response to treatment: Procedure was tolerated well Tissue Applied?: No us Delicia Rivera CLUB CAR ATTENDANT-STOCK UNLOADER PROCEDURE/MINOR SURGICAL ORDERABLES Final Result MANUALLY TRANSCRIBED RESULTS * (ABNORMAL) CBC auto differential (09/07/2024 4:05 AM EDT) Only the most recent of19 resultswithin the time period is included. WBC 14.8(H) 4 - 11 x10E9/L 09/07/2024 5:41 AM EDT [facility] RBC Count 2.53(L) 3.8 - 5.2 X10E12/L 09/07/2024 5:41 AM EDT [facility] Hemoglobin 7.4(L) 11.7 - 15.5 g/dL 09/07/2024 5:41 AM EDT [facility] Hematocrit 23.3(L) 35 - 47 % 09/07/2024 5:41 AM EDT [facility] MCV 92 80 - 100 fL 09/07/2024 5:41 AM EDT [facility] MCH 29.3 27 - 34 pg 09/07/2024 5:41 AM EDT [facility] MCHC 31.9(L) 32 - 36 g/dL 09/07/2024 5:41 AM EDT [facility] RDW 20.4(H) 11.5 - 15 % 09/07/2024 5:41 AM EDT [facility] Platelet Count 722(H) 150 - 450 X10E9/L 09/07/2024 5:41 AM EDT [facility] MPV 7.2 7 - 12 fL 09/07/2024 5:41 AM EDT [facility] Neutrophils % 82.9 % 09/07/2024 5:41 AM EDT [facility] Lymphocytes % 6.5 % 09/07/2024 5:41 AM EDT [facility] Monocytes % 9.7 % 09/07/2024 5:41 AM EDT [facility] Eosinophils % 0.4 % 09/07/2024 5:41 AM EDT [facility] Basophils % 0.5 % 09/07/2024 5:41 AM EDT [facility] Neutrophils Absolute (A) 12.3(H) 1.5 - 6.6 10*3/uL 09/07/2024 5:41 AM EDT [facility] Lymphocytes Absolute 1.0 1.0 - 3.5 10*3/uL 09/07/2024 5:41 AM EDT [facility] Monocytes Absolute 1.4(H) 0.0 - 0.9 10*3/uL 09/07/2024 5:41 AM EDT [facility] Eosinophils Absolute 0.1 0.0 - 0.4 10*3/uL 09/07/2024 5:41 AM EDT [facility] Basophils Absolute 0.1 0.0 - 0.2 10*3/uL 09/07/2024 5:41 AM EDT [facility] Differential Type AUTOMATED DIFFERENTIAL 09/07/2024 5:41 AM EDT [facility] Blood Venous blood / Unknown Venipuncture / Unknown 09/07/2024 4:05 AM EDT 09/07/2024 5:28 AM EDT us Vani Mccann MD LAB BLOOD ORDERABLES Final R esult [facility] [address] [place] [address], * (ABNORMAL) Basic Metabolic Panel (09/07/2024 4:05 AM EDT) Only the most recent of12 resultswithin the time period is included. SODIUM 151(H) 134 - 146 mmol/L 09/07/2024 5:59 AM EDT [facility] POTASSIUM 4.2 3.5 - 5.0 mmol/L 09/07/2024 5:59 AM EDT [facility] CHLORIDE 115(H) 98 - 109 mmol/L 09/07/2024 5:59 AM EDT [facility] CARBON DIOXIDE 23 22 - 32 mmol/L 09/07/2024 5:59 AM EDT [facility] ANION GAP 13 5 - 15 mmol/L 09/07/2024 5:59 AM EDT [facility] BLOOD UREA NITROGEN 64(H) 5 - 27 mg/dL 09/07/2024 5:59 AM EDT [facility] CREATININE 2.12(H) 0.40 - 1.00 mg/dL 09/07/2024 5:59 AM EDT [facility] Comment:METHOD TRACEABLE TO IDMS STANDARD GLUCOSE 82 65 - 99 mg/dL 09/07/2024 5:59 AM EDT [facility] CALCIUM 9.2 8.5 - 10.5 mg/dL 09/07/2024 5:59 AM EDT [facility] EGFR Non-Race Dependent 22(L) >=60 ml/min/1.7 3sq.m 09/07/2024 5:59 AM EDT [facility] Comment: Reported eGFR is based on the CKD-EPI 2020 equation that does not use a race coefficient. Blood Venous blood / Unknown Venipuncture / Unknown 09/07/2024 4:05 AM EDT 09/07/2024 5:28 AM EDT us Veronika Harding MD LAB BLOOD ORDERABLES Final R esult [facility] [address] [place] [address], * Blood Culture (09/06/2024 4:53 AM EDT) Only the most recent of6 resultswithin the time period is included. CULTURE RESULTS NO GROWTH 5 DAYS 09/11/2024 6:03 AM EDT [facility] Blood Venous blood / Unknown Venipuncture / Unknown 09/06/2024 4:53 AM EDT 09/06/2024 5:27 AM EDT Narrative [facility] - 09/11/2024 6:03 AM EDT Suboptimal volume of blood collected, Results may be affected. us Arnie Smith MD MICROBIOLOGY - GENERAL ORD ERABLES Final Result [facility] [address] [place] [address], [place] [phone] * CT abdomen and pelvis without contrast (09/05/2024 11:35 AM EDT) Anatomical Region Laterality Modality Body, Abdomen, Body Covera N/A Compu kitty Tomography 09/05/2024 12:0 3 PM EDT Narrative 09/05/2024 12:12 PM EDT STUDY: Abdomen and pelvis CT without intravenous contrast . CLINICAL HISTORY: COMPARISON: 08/18/2020. TECHNIQUE: Abdomen and pelvis CT was performed without intravenous contrast utilizing 5 mm axial reconstructions with coronal and sagittal reformatted images. Automated exposure control was utilized. FINDINGS: Assessment in the absence of intravenous contrast is suboptimal, especially with respect to vasculature, metastatic disease, and infectious precesses [if clinically relevant]. Despite this constraint, best attempt is made: Small moderate right, small left pleural effusions, interstitial polar edema. Cardiomegaly. Vascular calcium locations. Normal spleen, adrenal glands. Pancreatic parenchymal volume loss. Pneumobilia, also present on prior. Sepsis, infection. Unchanged left lower pole renal cyst. Diverticulosis sigmoid and descending colon without adjacent inflammatory change. Contrast throughout nondistended large bowel. Normal appendix. Question bladder wall thickening, partially secured due to left hip arthroplasty. Beckman catheter in place. Presacral fat stranding is nonspecific. Left hip arthroplasty. Right hip osteoarthrosis. No aggressive osseous lesions. Degenerative changes lumbar spine anasarca. Dorsal left antebrachial hematoma partially visualized. IMPRESSION: 1. Signs of fluid overload, right greater than left pleural effusions. Anasarca. 2. No clear etiology to account for sepsis. Nonspecific presacral fat stranding, possibly related overall fluid overload. 3. Dorsal left antebrachial hematoma, partially visualized. All CT scans at this facility use dose modulation, iterative reconstruction, and/or weight based dosing when appropriate to reduce radiation dose to as low as reasonably achievable. Finalized by Lon Will MD on 09/05/2024 12:12 PM Procedure Note Lon Will MD - 09/05/2024 STUDY: Abdomen and pelvis CT without intravenous contrast . CLINICAL HISTORY: COMPARISON: 08/18/2020. TECHNIQUE: Abdomen and pelvis CT was performed without intravenouscontrast utilizing 5 mm axial reconstructions with coronal and sagittalreformatted images. Automated exposure control was utilized. FINDINGS: Assessment in the absence of intravenous contrast is suboptimal,especially with respect to vasculature, metastatic disease, and infectiousprecesses [if clinically relevant]. Despite this constraint, best attemptis made: Small moderate right, small left pleural effusions, interstitial polaredema. Cardiomegaly. Vascular calcium locations. Normal spleen, adrenalglands. Pancreatic parenchymal volume loss. Pneumobilia, also present onprior. Sepsis, infection. Unchanged left lower pole renal cyst. Diverticulosis sigmoid and descending colon without adjacent inflammatorychange. Contrast throughout nondistended large bowel. Normal appendix. Question bladder wall thickening, partially secured due to left hiparthroplasty. Beckman catheter in place. Presacral fat stranding isnonspecific. Left hip arthroplasty. Right hip osteoarthrosis. No aggressive osseouslesions. Degenerative changes lumbar spine anasarca. Dorsal leftantebrachial hematoma partially visualized. IMPRESSION: 1. Signs of fluid overload, right greater than left pleural effusions.Anasarca. 2. No clear etiology to account for sepsis. Nonspecific presacral fatstranding, possibly related overall fluid overload. 3. Dorsal left antebrachial hematoma, partially visualized. All CT scans at this facility use dose modulation, iterativereconstruction, and/or weight based dosing when appropriate to reduceradiation dose to as low as reasonably achievable. Finalized by Lon Will MD on 09/05/2024 12:12 PM us Arnie Fernando Smith MD IMG CT ORDERABLES Final Re sult * PST TOP (09/05/2024 3:47 AM EDT) Only the most recent of5 resultswithin the time period is included. Extra Tube Auto Resulted 09/05/2024 5:01 AM EDT [facility] Blood Venous blood / Unknown 09/05/2024 3:47 AM EDT 09/05/2024 4:45 AM EDT Aditya Paulino Kirkpatrick MD LAB BLOOD ORDERABLES Fin al Result [facility] [address] [place] [address], * Fluoroscopy swallow motility function (09/04/2024 8:38 AM EDT) Anatomical Region Laterality Modality Chest, Abdomen, Body Radio Fluor oscopy 09/04/2024 8:47 AM EDT Narrative 09/04/2024 10:57 AM EDT FL SWALLOW MOTILITY FUNCTION HISTORY: Oropharyngeal dysphagia COMPARISON: None TECHNIQUE: Video fluoroscopic swallow study was performed in conjunction with speech pathologist. Barium contrast materials of varying consistencies administered. FINDINGS: Reference air kerma: 3.7 mGy Thin: Penetration. No aspiration Mildly thick: Penetration. No aspiration Moderately thick: No penetration or aspiration. Applesauce: No penetration or aspiration. IMPRESSION: 1. Penetration with thin and mildly thick liquids. No aspiration. 2. Please see speech pathology note for additional details and recommendations. Approved by Radames Doe MD on 09/04/2024 8:47 AM Jacinto Aviles have personally reviewed the image(s) and agree with and/or edited the report Finalized by Jacinto Sheth on 09/04/2024 10:57 AM Procedure Note Jacinto Sheth MD - 09/04/2024 FL SWALLOW MOTILITY FUNCTION HISTORY: Oropharyngeal dysphagia COMPARISON: None TECHNIQUE: Video fluoroscopic swallow study was performed in conjunctionwith speech pathologist. Barium contrast materials of varyingconsistencies administered. FINDINGS: Reference air kerma: 3.7 mGy Thin: Penetration. No aspiration Mildly thick: Penetration. No aspiration Moderately thick: No penetration or aspiration. Applesauce: No penetration or aspiration. IMPRESSION: 1. Penetration with thin and mildly thick liquids. No aspiration. 2. Please see speech pathology note for additional details andrecommendations. Approved by Res Sukh Doe MD on 09/04/2024 8:47 AM IJacinto have personally reviewed the image(s) and agree withand/or edited the report Finalized by Jacinto Sheth on 09/04/2024 10:57 AM us Veronika Harding MD IMG FLUOROSCOPY ORDERABLES F inal Result * X-ray abdomen NG Tube placement 1 view (09/01/2024 9:31 PM EDT) Anatomical Region Laterality Modality Body, Abdomen N/A Computed Radiogr aphy 09/01/2024 9:40 PM EDT Narrative 09/01/2024 9:41 PM EDT XR ABD NG TUBE PLACEMENT 1 VIEW Clinical history:ng placement verfication enteric catheter placement and verification Comparison: 08/31/2024 Impression: Enteric catheter tip in the region of the stomach. Finalized by Jacinto Can MD on 09/01/2024 9:41 PM Procedure Note Jacinto Can MD - 09/01/2024 XR ABD NG TUBE PLACEMENT 1 VIEW Clinical history:ng placement verfication enteric catheter placement andverification Comparison: 08/31/2024 Impression: Enteric catheter tip in the region of the stomach. Finalized by Jacinto Can MD on 09/01/2024 9:41 PM us Attila Pablo MD [employer]MRobby DIAGNOSTIC IMAGING ORDERABLE S Final Result * S pneumoniae Ag, urine (09/01/2024 2:15 PM EDT) S PNEUMONIAE AG U Negative Negative 09/01/2024 3:46 PM EDT [facility] Urine (Urine, Indwelling Catheter) 09/01/2024 2:15 PM EDT 09/01/2024 2:34 PM EDT us Arnie Smith MD URINE ORDERABLES Final Res ult [facility] [address] [place] [address], * Legionella antigen, urine (09/01/2024 2:15 PM EDT) LEGIONELLA URINE AG Negative, No L. pneumophila serogroup 1 Antigen Negative, No L. pneumophila serogroup 1 Antigen 09/01/2024 3:46 PM EDT [facility] Urine (Urine, Indwelling Catheter) 09/01/2024 2:15 PM EDT 09/01/2024 2:34 PM EDT Arnie Smith MD URINE ORDERABLES Final Res ult [facility] [address] [place] [address], * Ionized magnesium (09/01/2024 11:16 AM EDT) Only the most recent of9 resultswithin the time period is included. IONIZED MAGNESIUM 0.52 0.45 - 0.74 mmol/L 09/01/2024 12:04 PM EDT [facility] Blood Venous blood / Unknown Venipuncture / Unknown 09/01/2024 11:16 AM EDT 09/01/2024 11:45 AM EDT Lupillo Dempsey MD LAB BLOOD ORDERABLES Final Res ult [facility] [address] [place] [address], * Phosphorus (09/01/2024 11:16 AM EDT) Only the most recent of8 resultswithin the time period is included. PHOSPHORUS 3.1 2.4 - 4.9 mg/dL 09/01/2024 12:16 PM EDT [facility] Blood Venous blood / Unknown Venipuncture / Unknown 09/01/2024 11:16 AM EDT 09/01/2024 11:44 AM EDT us Lupillo Dempsey MD LAB BLOOD ORDERABLES Final Res ult Performing Organization Address City/[facility]/ZIP Co de Phone Number [facility] [address] [place] [address], * Ionized calcium (09/01/2024 11:16 AM EDT) Only the most recent of6 resultswithin the time period is included. IONIZED CALCIUM - ICAN 4.9 4.5 - 5.3 mg/dL 09/01/2024 12:04 PM EDT [facility] Blood Venous blood / Unknown Venipuncture / Unknown 09/01/2024 11:16 AM EDT 09/01/2024 11:45 AM EDT us Lupilol Dempsey MD LAB BLOOD ORDERABLES Final Res ult Performing Organization Address [facility] Co de Phone Number [facility] [address] [place] [address], [place] [phone] * X-ray abdomen ap 1 view (08/31/2024 6:56 PM EDT) Only the most recent of2 resultswithin the time period is included. Anatomical Region Laterality Modality Body, Abdomen N/A Computed Radiogr aphy 08/31/2024 7:13 PM EDT Narrative 08/31/2024 7:14 PM EDT Abdomen single view Clinical history:NG tube placement and ok for use? Enteric catheter placement and verification Comparison: None. Impression: Enteric catheter tip in the region of the mid stomach. Nonspecific bowel gas pattern. Finalized by Jacinto Can MD on 08/31/2024 7:14 PM Procedure Note Jacinto Can MD - 08/31/2024 Abdomen single view Clinical history:NG tube placement and ok for use? Enteric catheterplacement and verification Comparison: None. Impression: Enteric catheter tip in the region of the mid stomach. Nonspecific bowelgas pattern. Finalized by Jacinto Can MD on 08/31/2024 7:14 PM us Aditya Kirkpatrick MD IMG DIAGNOSTIC IMAGING O RDERABLES Final Result * Mrsa Pcr nasal swab (08/31/2024 9:51 AM EDT) [facility] MRSA PCR NASAL Negative Negative 08/31/2024 11:44 AM EDT [facility] Swab Structure of anterior naris / Unknown 08/31/2024 9:51 AM EDT 08/31/2024 10:04 AM EDT Arnie Smith MD MICROBIOLOGY - GENERAL ORD ERABLES Final Result [facility] [address] [place] [address], * Resp Pathogens Panel/SARS CoV-2 (08/31/2024 9:51 AM EDT) [facility] SARS COV 2 BY PCR Not Detected Not Detected 08/31/2024 11:10 AM EDT [facility] ADENOVIRUS Not Detected Not Detected 08/31/2024 11:10 AM EDT [facility] CORONAVIRUS 229E Not Detected Not Detected 08/31/2024 11:10 AM EDT [facility] CORONAVIRUS HKU1 Not Detected Not Detected 08/31/2024 11:10 AM EDT [facility] CORONAVIRUS NL63 Not Detected Not Detected 08/31/2024 11:10 AM EDT [facility] CORONAVIRUS OC43 Not Detected Not Detected 08/31/2024 11:10 AM EDT [facility] HUMAN METAPNEUVIRUS Not Detected Not Detected 08/31/2024 11:10 AM EDT [facility] RHINO/ENTEROVIRU S Not Detected Not Detected 08/31/2024 11:10 AM EDT [facility] INFLUENZA A Not Detected Not Detected 08/31/2024 11:10 AM EDT [facility] INFLUENZA B Not Detected Not Detected 08/31/2024 11:10 AM EDT [facility] PARAINFLUENZA 1 Not Detected Not Detected 08/31/2024 11:10 AM EDT [facility] PARAINFLUENZA 2 Not Detected Not Detected 08/31/2024 11:10 AM EDT [facility] PARAINFLUENZA 3 Not Detected Not Detected 08/31/2024 11:10 AM EDT [facility] PARAINFLUENZA 4 Not Detected Not Detected 08/31/2024 11:10 AM EDT [facility] RESP SYNCYTIAL VIRUS Not Detected Not Detected 08/31/2024 11:10 AM EDT [facility] BORD PARAPERTUSSIS Not Detected Not Detected 08/31/2024 11:10 AM EDT [facility] BORDETELLA PERTUSSIS Not Detected Not Detected 08/31/2024 11:10 AM EDT [facility] CHLAM.PNEUMONIAE Not Detected Not Detected 08/31/2024 11:10 AM EDT [facility] MYCOPLASMA PNEUMONIAE Not Detected Not Detected 08/31/2024 11:10 AM EDT [facility] Swab Nasopharyngeal structure / Unknown 08/31/2024 9:51 AM EDT 08/31/2024 10:04 AM EDT General acute hospital LABORATORY - 08/31/2024 11:10 AM EDT The [employer] Respiratory Panel 2.1 (RP2.1) is a multiplexed nucleic acid test intended for the simultaneous qualitative detection and differentiation of nucleic acid from multiple viral and bacterial respiratory organisms, including nucleic acid from Severe Acute Respiratory Syndrome Coronavirus 2 (SARS-CoV-2), in nasopharyngeal swabs obtained from individuals suspected of COVID-19 by their healthcare provider. Testing is limited to laboratories certified under the Clinical Laboratory Improvement Amendments of 1988 (CLIA), to perform high complexity or moderate complexity tests. SARS-CoV-2 RNA and nucleic acids from the other respiratory viral and bacterial organisms identified by this test are generally detectable in nasopharyngeal swabs during the acute phase of infection. The detection and identification of specific viral and bacterial nucleic acids from individuals exhibiting signs and/or symptoms of respiratory infection is indicative of the presence of the identified microorganism and aids in the diagnosis of respiratory infection if used in conjunction with other clinical and epidemiological information. Positive results are indicative of the presence of the identified organism, but do not rule out co-infection with other pathogens. The agent(s) detected by the [employer] RP2.1 may not be the definite cause of disease and clinical correlation with patient history and other diagnostic information is necessary to determine patient infection status. Negative results in the setting of a respiratory illness may be due to infection with pathogens not detected by this test, or lower respiratory tract infection that may not be detected by a nasopharyngeal specimen. Negative results do not preclude SARS-CoV-2 infection and should not be used as the sole basis for patient management decisions. Negative ANA-CoV-2 results must be combined with clinical observations, patient history and epidemiological information. Negative results for other organisms identified by the test may require additional laboratory testing when evaluating a patient with possible respiratory tract infection. Arnie Smith MD MICROBIOLOGY - GENERAL ORD ERABLES Final Result [facility] [address] [place] [address], * Lavender Top (08/30/2024 7:16 PM EDT) [facility] Extra Tube Auto Resulted 08/30/2024 9:01 PM EDT [facility] Blood Venous blood / Unknown 08/30/2024 7:16 PM EDT 08/30/2024 7:26 PM EDT Aditya Kirkpatrick MD LAB BLOOD ORDERABLES Fin al Result [facility] [address] [place] [address], * Lactate w/ Reflex (08/30/2024 7:16 PM EDT) LACTATE W/REFLEX 0.9 0.4 - 2.0 mmol/L 08/30/2024 8:05 PM EDT [facility] Blood Venous blood / Unknown Venipuncture / Unknown 08/30/2024 7:16 PM EDT 08/30/2024 7:27 PM EDT Narrative [facility] - 08/30/2024 8:05 PM EDT Result did not trigger repeat Lactate, re-order if needed. Veronika Harding MD LAB BLOOD ORDERABLES Final R esult [facility] [address] [place] [address], [place] [phone] * Ammonia (08/30/2024 7:16 PM EDT) AMMONIA 53 18 - 72 umol/L 08/30/2024 8:04 PM EDT [facility] Blood Venous blood / Unknown Venipuncture / Unknown 08/30/2024 7:16 PM EDT 08/30/2024 7:27 PM EDT Veronika Harding MD LAB BLOOD ORDERABLES Final R esult [facility] [address] [place] [address], [place] [phone] * (ABNORMAL) Blood Gas, Arterial (08/30/2024 6:27 PM EDT) Sample type ARTERIAL 08/30/2024 6:32 PM EDT [facility] pH, Arterial 7.413 7.350 - 7.450 08/30/2024 6:32 PM EDT [facility] pCO2, Arterial 27.0(L) 35.0 - 45.0 mmHg 08/30/2024 6:32 PM EDT [facility] PO2, Arterial 77(L) 80 - 100 mmHg 08/30/2024 6:32 PM EDT [facility] Base, Deficit -7.0(L) 0.0 - 2.0 mmol/L 08/30/2024 6:32 PM EDT [facility] HCO3, Arterial 17.2(L) 22.0 - 26.0 mmol/L 08/30/2024 6:32 PM EDT [facility] %O2 Saturation, Arterial 96.0 >90.0 % 08/30/2024 6:32 PM EDT [facility] Solo's test Pass 08/30/2024 6:32 PM EDT [facility] SPO2 100 % 08/30/2024 6:32 PM EDT [facility] Sample site R Rad 08/30/2024 6:32 PM EDT [facility] Insp. O2 conc. 30 % 08/30/2024 6:32 PM EDT [facility] Source Of Oxygen NC 08/30/2024 6:32 PM EDT [facility] arterial (Blood, Arterial) 08/30/2024 6:27 PM EDT 08/30/2024 6:32 PM EDT us Aditya Kirkpatrick MD LAB BLOOD ORDERABLES Fin al Result [facility] [address] [place] [address], * X-ray chest 1 view (08/30/2024 6:09 PM EDT) Anatomical Region Laterality Modality Body, Chest N/A Computed Radiogr aphy 08/30/2024 6:44 PM EDT Narrative 08/30/2024 6:52 PM EDT XR CHEST 1 VW HISTORY: Shortness of breath. Altered mental status, extensive peripheral vascular disease with right lower extremity critical limb ischemia status post right iliofemoral endarterectomy, patch angioplasty, iliac stent, and femoral popliteal bypass. COMPARISON: None FINDINGS: The trachea is midline. The cardiomediastinal silhouette is not enlarged. No pneumothorax or large pleural effusion. Hazy right basilar airspace opacities silhouette the right diaphragmatic contour. Patchy retrocardiac airspace opacities. Median sternotomy wires. Surgical clips overlying the mediastinum. Enteric tube courses below the left hemidiaphragm with tip extending beyond the [id number]. IMPRESSION: * Right lower lobe and retrocardiac airspace opacities concerning for multifocal pneumonia in the appropriate clinical context. Approved by Resident Roman Frank MD on 08/30/2024 6:44 PM Jacinto Aviles MD have personally reviewed the image(s) and agree with and/or edited the report Finalized by Jacinto Can MD on 08/30/2024 6:52 PM Procedure Note Jacinto Can MD - 08/30/2024 XR CHEST 1 VW HISTORY: Shortness of breath. Altered mental status, extensive peripheralvascular disease with right lower extremity critical limb ischemia statuspost right iliofemoral endarterectomy, patch angioplasty, iliac stent, andfemoral popliteal bypass. COMPARISON: None FINDINGS: The trachea is midline. The cardiomediastinal silhouette is not enlarged. No pneumothorax or large pleural effusion. Hazy right basilar airspaceopacities silhouette the right diaphragmatic contour. Patchy retrocardiacairspace opacities. Median sternotomy wires. Surgical clips overlying the mediastinum. Enterictube courses below the left hemidiaphragm with tip extending beyond [id number]. IMPRESSION: * Right lower lobe and retrocardiac airspace opacities concerning formultifocal pneumonia in the appropriate clinical context. Approved by Resident Roman Frank MD on 08/30/2024 6:44 PM Jacinto Aviles MD have personally reviewed the image(s) and agree withand/or edited the report Finalized by Jacinto Can MD on 08/30/2024 6:52 PM Veronika Harding MD IMG DIAGNOSTIC IMAGING ORDER KARISSA Final Result * Anti XA unfractionated heparin (08/30/2024 5:18 AM EDT) Only the most recent of15 resultswithin the time period is included. ANTI XA UFH 0.42 0.30 - 0.70 IU/mL 08/30/2024 7:08 AM EDT [facility] Comment: Optimal time for testing is 6 hrs post dosage This test is specific for monitoring patients on UFH, and is not recommended for use with other Anti-Xa medications. Blood Venous blood / Unknown Venipuncture / Unknown 08/30/2024 5:18 AM EDT 08/30/2024 5:34 AM EDT us Deuce Kirkland MD LAB BLOOD ORDERABLES Final Re sult [facility] [address] [place] [address], [place] [phone] * (ABNORMAL) Urinalysis (08/28/2024 10:16 PM EDT) COLOR Yellow Yellow, Colorless 08/28/2024 11:02 PM EDT [facility] TURBIDITY Hazy(A) Clear 08/28/2024 11:02 PM EDT [facility] SPECIFIC GRAVITY 1.017 1.003 - 1.035 08/28/2024 11:02 PM EDT [facility] NITRITE Negative Negative 08/28/2024 11:02 PM EDT [facility] PH,URINE 5.0 5.0 - 8.5 08/28/2024 11:02 PM EDT [facility] LEUKOCYTE ESTERASE Negative Negative 08/28/2024 11:02 PM EDT [facility] PROTEIN 30 mg/dL(A) Negative 08/28/2024 11:02 PM EDT [facility] KETONES (URINE) Trace(A) Negative 11:02 PM EDT [facility] UROBILINOGEN <1.1 eu/dL <1.1 eu/dL 08/28/2024 11:02 PM EDT [facility] BILIRUBIN (URINE) Negative Negative 08/28/2024 11:02 PM EDT [facility] BLOOD/HGB Moderate(A) Negative 08/28/2024 11:02 PM EDT [facility] MUCOUS Present(A) None 08/28/2024 11:02 PM EDT [facility] R.B.CELLS 1 0 - 5 08/28/2024 11:02 PM EDT [facility] W.B.CELLS 1 0 - 5 08/28/2024 11:02 PM EDT [facility] GLUCOSE (URINE) Negative Negative 11:02 PM EDT [facility] Urine (Urine, Indwelling Catheter) Collection / Unknown 08/28/2024 10:16 PM EDT 08/28/2024 10:33 PM EDT us Deuce Kirkland MD URINE ORDERABLES Final Result [facility] [address] [place] [address], [place] [phone] * Potassium (08/28/2024 5:53 PM EDT) Only the most recent of2 resultswithin the time period is included. POTASSIUM 3.8 3.5 - 5.0 mmol/L 08/28/2024 6:46 PM EDT [facility] Blood Venous blood / Unknown Venipuncture / Unknown 08/28/2024 5:53 PM EDT 08/28/2024 5:53 PM EDT us Lupillo Dempsey MD LAB BLOOD ORDERABLES Final Res ult [facility] [address] [place] [address], [place] [phone] * (ABNORMAL) Comprehensive metabolic panel (08/28/2024 2:20 AM EDT) SODIUM 139 134 - 146 mmol/L 08/28/2024 4:37 AM EDT [facility] POTASSIUM 3.9 3.5 - 5.0 mmol/L 08/28/2024 4:37 AM EDT [facility] CHLORIDE 112(H) 98 - 109 mmol/L 08/28/2024 4:37 AM [facility] CARBON DIOXIDE 18(L) 22 - 32 mmol/L 08/28/2024 4:37 AM [facility] ANION GAP 9 5 - 15 mmol/L 08/28/2024 4:37 AM [facility] BLOOD UREA NITROGEN 35(H) 5 - 27 mg/dL 08/28/2024 4:37 AM [facility] CREATININE 1.23(H) 0.40 - 1.00 mg/dL 08/28/2024 4:37 AM [facility] Comment:METHOD TRACEABLE TO [facility] STANDARD GLUCOSE 135(H) 65 - 99 mg/dL 08/28/2024 4:37 AM [facility] CALCIUM 8.6 8.5 - 10.5 mg/dL 08/28/2024 4:37 AM [facility] TOTAL PROTEIN 5.5(L) 6.0 - 8.0 g/dL 08/28/2024 4:37 AM [facility] ALBUMIN 2.9(L) 3.2 - 5.3 g/dL 08/28/2024 4:37 AM [facility] ALKALINE PHOSPHATASE 37(L) 39 - 130 U/L 08/28/2024 4:37 AM [facility] AST 51(H) <=41 U/L 08/28/2024 4:37 AM [facility] ALT 23 <=31 U/L 08/28/2024 4:37 AM [facility] BILIRUBIN,TOTAL 0.6 0.3 - 1.2 mg/dL 08/28/2024 4:37 AM [facility] EGFR Non-Race Dependent 43(L) >=60 ml/min/1.7 3sq.m 08/28/2024 4:37 AM [facility] Comment: Reported eGFR is based on the CKD-EPI 2020 equation that does not use a race coefficient. Blood Venous blood / Unknown Venipuncture / Unknown 08/28/2024 2:20 AM EDT 08/28/2024 2:20 AM EDT Lupillo Dempsey MD LAB BLOOD ORDERABLES Final Res ult Performing Organization Address City/[facility]/ZIP Co de Phone Number [facility] [address] [place] [address], * (ABNORMAL) Hemoglobin and hematocrit, blood (08/26/2024 7:48 AM EDT) Only the most recent of2 resultswithin the time period is included. Hemoglobin 9.6(L) 11.7 - 15.5 g/dL 08/26/2024 8:32 AM EDT [facility] Hematocrit 28.5(L) 35 - 47 % 08/26/2024 8:32 AM EDT [facility] Blood Venous blood / Unknown Venipuncture / Unknown 08/26/2024 7:48 AM EDT 08/26/2024 7:48 AM EDT Silvano Alex DO LAB BLOOD ORDERABLES Final Re sult Performing Organization Address City/[facility]/ZIP Co de Phone Number [facility] [address] [place] [address], * Type and screen(includes indirect chi) (08/26/2024 2:18 AM EDT) Only the most recent of2 resultswithin the time period is included. ABO A 08/26/2024 3:29 AM EDT [facility] RH Positive 08/26/2024 3:29 AM EDT [facility] Antibody Screen Negative 08/26/2024 3:29 AM EDT [facility] Blood Venous blood / Unknown Venipuncture / Unknown 08/26/2024 2:18 AM EDT 08/26/2024 2:18 AM EDT Deuce Kirkland MD BLOOD BANK TEST ORDERABLES Ed ited Result - Final Performing Organization Address [facility] Co de Phone Number [facility] - JANIE [address] [place] [address], [facility] [address] [place] [address], * Transfuse RBC:1 Unit (08/25/2024 10:34 AM EDT) Only the most recent of3 resultswithin the time period is included. Yaa Amador MD BLOOD TRANSFUSION ORDERABLES Final Result * (ABNORMAL) APTT (08/23/2024 12:41 PM EDT) Only the most recent of2 resultswithin the time period is included. APTT 65(H) 26 - 37 sec 08/23/2024 1:08 PM EDT [facility] Blood Venous blood / Unknown 08/23/2024 12:41 PM EDT 08/23/2024 12:51 PM EDT [employer]iya Lon [employer] LAB BLOOD ORDERABLES Final Result Performing Organization Address [facility] Co de Phone Number [facility] [address] [place] [address], * (ABNORMAL) Protime & INR (08/23/2024 12:41 PM EDT) Only the most recent of2 resultswithin the time period is included. PROTIME 13.3(H) 9.8 - 13.2 sec 08/23/2024 1:08 PM EDT [facility] INR 1.2 0.9 - 1.2 08/23/2024 1:08 PM EDT [facility] Blood Venous blood / Unknown 08/23/2024 12:41 PM EDT 08/23/2024 12:51 PM EDT Itiya Lon [employer] ATTEND[employer]OCK [employer] LAB BLOOD ORDERABLES Final Result Performing Organization Address City/[facility]/ZIP Co de Phone Number [facility] [address] [place] [address], [place] [phone] * (ABNORMAL) Platelet count (08/23/2024 12:41 PM EDT) Only the most recent of2 resultswithin the time period is included. Platelet Count 303 150 - 450 X10E9/L 08/23/2024 1:10 PM EDT [facility] MPV 6.9(L) 7 - 12 fL 08/23/2024 1:10 PM EDT [facility] Blood Venous blood / Unknown 08/23/2024 12:41 PM EDT 08/23/2024 12:51 PM EDT us Itiya Lon [employer] ATTENDANT-[employer]OCK UN[employer]ER LAB BLOOD ORDERABLES Final Result [facility] [address] [place] [address], [place] [phone] * (ABNORMAL) Hemoglobin (08/23/2024 12:41 PM EDT) Only the most recent of2 resultswithin the time period is included. Hemoglobin 7.6(L) 11.7 - 15.5 g/dL 08/23/2024 1:10 PM EDT [facility] Blood Venous blood / Unknown 08/23/2024 12:41 PM EDT 08/23/2024 12:51 PM EDT [employer]OCK [employer] LAB BLOOD ORDERABLES Final Result [facility] [address] [place] [address], [place] [phone] * (ABNORMAL) Tissue culture includes gram stain (08/22/2024 9:00 PM EDT) CULTURE RESULTS Rare Pseudomonas aeruginosa(A) 08/26/2024 9:00 AM EDT [facility] CULTURE RESULTS Rare Pseudomonas aeruginosa(A) 08/26/2024 9:00 AM EDT [facility] Comment:Variant GRAM STAIN >25 White Blood Cells/LPF 08/26/2024 9:00 AM EDT [facility] GRAM STAIN 0 Squamous Epithelial Cells/LPF 08/26/2024 9:00 AM EDT [facility] GRAM STAIN No organisms seen 08/26/2024 9:00 AM EDT [facility] Tissue (Leg, Right) 08/22/2024 9:00 PM EDT 08/22/2024 9:31 PM EDT Comment: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 Narrative Organism Antibiotic Method Susceptibility Pseudomonas aeruginosa PIPERACIL/TAZOBACTAM <=4.0: Susceptible Pseudomonas aeruginosa Meropenem <=0.25: Susceptible Pseudomonas aeruginosa Tobramycin <=1.0: Susceptible Pseudomonas aeruginosa Ciprofloxacin 0.5: Susceptible Pseudomonas aeruginosa Levofloxacin 2.0: Intermediate Pseudomonas aeruginosa Cefepime Susceptible Pseudomonas aeruginosa PIPERACIL/TAZOBACTAM <=4.0: Susceptible Pseudomonas aeruginosa Meropenem <=0.25: Susceptible Pseudomonas aeruginosa Tobramycin <=1.0: Susceptible Pseudomonas aeruginosa Ciprofloxacin 0.5: Susceptible Pseudomonas aeruginosa Levofloxacin 2.0: Intermediate Pseudomonas aeruginosa Cefepime Susceptible Deuce Kirkland MD MICROBIOLOGY - GENERAL ORDERA BLES Final Result [facility] [address] [place] [address], * Fungal culture includes fungal smear (08/22/2024 9:00 PM EDT) Only the most recent of2 resultswithin the time period is included. 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 [place] [address], [place] [phone] * Anaerobic culture (08/22/2024 9:00 PM EDT) Only the most recent of2 resultswithin the time period is included. 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 [place] [address], [place] [phone] * (ABNORMAL) POCT ABG Rapid NA K GLU ICA HH (08/22/2024 8:17 PM EDT) POC Sodium 136 134 - 146 mmol/L 08/22/2024 8:18 PM EDT [facility] POC Potassium 4.4 3.5 - 5.0 mmol/L 08/22/2024 8:18 PM EDT [facility] POC Glucose 107(H) 65 - 99 mg/dL 08/22/2024 8:18 PM EDT [facility] POC HGB 8.5(L) 11.7 - 15.5 g/dL 08/22/2024 8:18 PM EDT [facility] POC Hematocrit 26(L) 35 - 47 % 08/22/2024 8:18 PM EDT [facility] POC Ionized Calcium 5.0 4.5 - 5.3 mg/dL 08/22/2024 8:18 PM EDT [facility] Sample type Arterial 08/22/2024 8:18 PM EDT [facility] Body Temp 37.00 >=37 C 08/22/2024 8:18 PM EDT [facility] pH, Arterial 7.363 7.350 - 7.450 08/22/2024 8:18 PM EDT [facility] pCO2, Arterial 35.5 35.0 - 45.0 mmHg 08/22/2024 8:18 PM EDT [facility] PO2, Arterial 190(H) 80 - 100 mmHg 08/22/2024 8:18 PM EDT [facility] Base, Deficit -5.3(L) 0.0 - 2.0 mmol/L 08/22/2024 8:18 PM EDT [facility] HCO3, Arterial 20.1(L) 22.0 - 26.0 mmol/L 08/22/2024 8:18 PM EDT [facility] %O2 Saturation, Arterial 99.7 >90.0 % 08/22/2024 8:18 PM T [facility] Solo's test NA 08/22/2024 8:18 PM T [facility] Sample site A LINE 08/22/2024 8:18 PM T [facility] Insp. O2 conc. 100.0 % 08/22/2024 8:18 PM T [facility] arterial (Blood, Arterial) 08/22/2024 8:17 PM EDT 08/22/2024 8:18 PM EDT us Sebas Xiong DO POINT OF CARE TEST ORDERABLES Final Result [facility] [address] [place] [address], [place] * (ABNORMAL) Wound culture surgical deep includes gram stain (08/22/2024 8:03 PM EDT) CULTURE RESULTS Pseudomonas aeruginosa(A) 08/26/2024 9:07 AM EDT [facility] Hardware (Leg, Right) 08/22/2024 8:03 PM EDT 08/22/2024 9:45 PM EDT Narrative Organism Antibiotic Method Susceptibility Pseudomonas aeruginosa PIPERACIL/TAZOBACTAM <=4.0: Susceptible Pseudomonas aeruginosa Meropenem <=0.25: Susceptible Pseudomonas aeruginosa Tobramycin <=1.0: Susceptible Pseudomonas aeruginosa Ciprofloxacin 0.5: Susceptible Pseudomonas aeruginosa Levofloxacin 2.0: Intermediate Pseudomonas aeruginosa Cefepime Susceptible us Sebas Xiong DO MICROBIOLOGY - GENERAL ORDERA BLES Final Result [facility] [address] [place] [address], [place] [phone] * WI ANES ART LINE (08/22/2024 7:24 PM EDT) Narrative Justin Alonso APRN-CRNA - 08/22/2024 7:24 PM EDT BART Tim 08/22/2024 7:24 PM Art Line Performed by: BART Tim Authorized by: Gracia Irby MD Patient Location: OR Start Time: 08/22/2024 6:36 PM End Time: 08/22/2024 6:49 PM Service Provider: Gracia Irby MD SENIOR MANUFACTURING SUPERVISOR ( if not the service provider): ADAN TimSENIOR MANUFACTURING SUPERVISOR Placed By: Gracia Irby MD Complete checklist: Patient Identified, IV Checked, Risks and Benefits Discussed, Surgical Consent, Monitors and Equipment Checked, Pre-op Evaluation and Timeout Performed Fire Risk Assessment Score: 0 Site Prep: Chlorhexadine and Isopropyl Alcohol Hand Hygiene Performed Prior to Insertion: Yes Site Prep Agent has Completely Dried Before Insertion: Yes Patient Prep Prior to AL Insertion: General Anesthesia Size: 20 G Total Catheter Length (inches): 1 3/4 Location: Radial Orientation: Right Securement Method: Taped and Transparent Dressing Placement Technique: Anatomical Landmarks, Guidewire and Ultrasound Guidance Insertion Attempts: 1 Patient Tolerance: Tolerated Well no arterial injury Gracia Irby MD WI ANESTHESIA Final Result * WI AN ELECTIVE ENDOTRACHEAL AIRWAY (08/22/2024 6:36 PM EDT) Narrative Justin Alonso APRN-CRNA - 08/22/2024 6:36 PM EDT BART Tim 08/22/2024 7:08 PM Airway Patient location during procedure: OR Urgency: Elective Date/Time: 08/22/2024 6:36 PM Airway not difficult IV In Situ: Peripheral General Information and Staff Service Provider: Gracia Irby MD SENIOR MANUFACTURING SUPERVISOR: BART Tim Placed by: Gracia Irby MD Patient Identified, IV Checked, Risks and Benefits Discussed, Surgical Consent, Monitors and Equipment Checked, Pre-op Evaluation and Timeout Performed Fire Risk Assessment Score: 0 Consent for Emergent Airway (if performed for an anesthetic, see related documentation for consents) Risks and benefits: risks, benefits and alternatives were discussed Indications and Patient Condition Sedation level: Deep Preoxygenated: yesPatient position: Supine and Sniffing MILS maintained throughout Mask difficulty assessment: Vent By Mask Indications for airway management: Anesthesia Complications: No Complicating Factors: No Final Airway Details Final airway type: ETT Endotracheal airway: Cuffed and ETT - Single Lumen Techniques used for successful ETT Placement: Direct Laryngoscopy and With Stylet Cormack-Lehane Classification: Grade I Endotracheal tube insertion site: Oral Dentition Check Pre: See Pre-Evaluaton documentation Post Intubation Trauma? No Visibility: Cords Clear Blade: Isabella Blade size: #3 Placement verified by: chest auscultation, capnography and symmetrical chest wall movement ETT size: 7.0 mm Measured from: Gums Secured at (cm): 21 Number of attempts at approach: 1 us Gracia Irby MD ANESTHESIA ORDERABLES Final R esult * Crossmatch RBC:Number of Units: 1 (08/22/2024 4:30 PM EDT) Only the most recent of3 resultswithin the time period is included. Blood component type [id number] BLOOD [facility] Unit number [id number] BL OOD [facility] ABO A BLOOD [facility] - [facility] Unit RH POS BLOOD BANK - [facility] Crossmatch Compatible BLOOD BA IVONNE - JANIE Status of unit TRANSFUSED BLOO D BANK - [facility] Expiration Date [id number] JOSE LIMA BB Type Barcode 6200 BLOOD ANDREW LIMA Blood Venous blood / Unknown 08/22/2024 4:30 PM EDT 08/22/2024 4:52 PM EDT Yaa Amador MD BLOOD BANK PRODUCT ORDERABLE S Edited Result - Final JOSE LIMA * Vas art duplex pseudoaneurysm rt (08/21/2024 12:26 PM EDT) Anatomical Region Laterality Modality Vascular Right Ultrasound 08/21/2024 12:3 0 PM EDT Narrative 08/23/2024 10:35 AM EDT Right: Limited exam Per MD request. Large mass without evidence of color flow noted distal thigh to knee region. Conclusions: No evidence of lower extremity pseudoaneurysm but findings consistent with hematoma. Recommendations: Any questions prior to finalization, please call the reading physician during normal business hours at the phone number beside their name. Procedure Note Beau Dan, - 08/23/2024 Right: Limited exam Per MD request. Large mass without evidence of colorflow noted distal thigh to knee region. Conclusions: No evidence of lower extremity pseudoaneurysm but findingsconsistent with hematoma. Recommendations: Any questions prior to finalization, please call thereading physician during normal business hours at the phone number besidetheir name. Jose G Dempsey MD CV VASCULAR ORDERABLES Final Result * ECG 12 lead (08/20/2024 5:50 PM EDT) 08/20/2024 5:50 PM EDT Narrative TRACEMASTERVUE - 08/20/2024 5:54 PM EDT Alban Barrientos MD ECG ORDERABLES Final Result [facility] * X-ray knee right 3 views (08/20/2024 3:32 PM EDT) Anatomical Region Laterality Modality Lower Extremities, MSK, Knee Right Com puted Radiography 08/20/2024 9:28 PM EDT Narrative 08/20/2024 9:32 PM EDT EXAM: XR KNEE RT 3 VWS CLINICAL INFORMATION: swelling right knee. COMPARISON: None. FINDINGS: There is no evidence for an acute displaced fracture or malalignment of the knee. There is only a trace joint effusion. 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 IMPRESSION: 1. No evidence for an acute displaced fracture of malalignment of the knee. There is a trace joint effusion. 2. Localized moderately severe patellofemoral DJD. Finalized by Fred Senior MD on 08/20/2024 9:32 PM Procedure Note Fred Senior MD - 08/20/2024 EXAM: XR KNEE RT 3 VWS CLINICAL INFORMATION: swelling right knee. COMPARISON: None. FINDINGS: There is no evidence for an acute displaced fracture or malalignment ofthe knee. There is only a trace joint effusion. There is focal moderatelysevere DJD of the patellofemoral compartment. IMPRESSION: 1. No evidence for an acute displaced fracture of malalignment of theknee. There is a trace joint effusion. 2. Localized moderately severe patellofemoral DJD. Finalized by Fred Senior MD on 08/20/2024 9:32 PM Erika Sexton MD [facility] ORDE NOEMÍ Final Result * (ABNORMAL) Iron and TIBC (08/20/2024 4:13 AM EDT) IRON 12(L) 50 - 170 ug/dL 08/20/2024 6:17 AM EDT [facility] TRANSFERRIN 163(L) 168 - 336 mg/dL 08/20/2024 6:17 AM EDT [facility] IRON BINDING 228(L) 250 - 425 ug/dL 08/20/2024 6:17 AM EDT [facility] IRON SATURATION 5(L) 15 - 50 % SATURATION 08/20/2024 6:17 AM EDT [facility] Blood Venous blood / Unknown Venipuncture / Unknown 08/20/2024 4:13 AM EDT 08/20/2024 4:13 AM EDT Vani Mccann MD LAB BLOOD ORDERABLES Final R esult [facility] [address] [place] [address], [place] [phone] * Folate (08/20/2024 4:13 AM EDT) FOLIC ACID >25.0 >5.8 ng/mL 08/20/2024 6:35 AM EDT [facility] Blood Venous blood / Unknown Venipuncture / Unknown 08/20/2024 4:13 AM EDT 08/20/2024 4:13 AM EDT Vani Mccann MD LAB BLOOD ORDERABLES Final R esult [facility] [address] [place] [address], [place] [phone] * (ABNORMAL) Vitamin B12 (08/20/2024 4:13 AM EDT) VITAMIN B12 >1,500(H) 180 - 914 pg/mL 08/20/2024 6:36 AM EDT [facility] Blood Venous blood / Unknown Venipuncture / Unknown 08/20/2024 4:13 AM EDT 08/20/2024 4:13 AM EDT Vani Mccann MD LAB BLOOD ORDERABLES Final R esult [facility] [address] [place] [address], [place] [phone] * Vancomycin, random (08/20/2024 4:13 AM EDT) VANCOMYCIN 7.2 5.0 - 40.0 ug/mL 08/20/2024 6:17 AM EDT [facility] Blood Venous blood / Unknown Venipuncture / Unknown 08/20/2024 4:13 AM EDT 08/20/2024 4:13 AM EDT [facility]arrative [facility] [facility] - 08/20/2024 6:17 AM EDT Peak 30-40 ug/mL Trough 5-20 ug/ml us Arnie Smith MD LAB BLOOD ORDERABLES Final Result [facility] [address] [place] [address], [place] [phone] * Vas art doppler lwr bilat mult lev/PVR (08/19/2024 2:51 PM EDT) Anatomical Region Laterality Modality Vascular Bilateral Ultrasound 08/19/2024 2:51 PM EDT Narrative 08/20/2024 9:54 AM EDT Previous: History of right lower extremity stent and bypass graft 12/2023 . Previous lower extremity arterial physiological exam performed: 07/20/2024 ; Highest MITCH: Right: Absent ; Left: Non-Compressible . Right: Moderately abnormal PVR waveform contour at the thigh level. Severely abnormal PVR waveform contour at the calf level. Flat PVR waveforms at the ankle level. No Calf waveform augmentation noted. MITCH is unobtainable due to pain and patient refusal to finish exam. Left: Moderately abnormal PVR waveform contour at the thigh and calf level. Flat PVR waveforms at the ankle level. No Calf waveform augmentation noted. MITCH is unobtainable due to pain and patient refusal to finish exam. 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 Unable to obtain MITCH due to patient pain. When compared to previous report current exam is insufficient to determine significant change. Recommendations: Any questions prior to finalization, please call the reading physician during normal business hours at the phone number beside their name. Procedure Note Sabrina Perez MD - 08/20/2024 Previous: History of right lower extremity stent and bypass graft 12/2023. Previous lower extremity arterial physiological exam performed:07/20/2024 ; Highest MITCH: Right: Absent ; Left: Non-Compressible . Right: Moderately abnormal PVR waveform contour at the thigh level.Severely abnormal PVR waveform contour at the calf level. Flat PVRwaveforms at the ankle level. No Calf waveform augmentation noted. MITCH isunobtainable due to pain and patient refusal to finish exam. Left: Moderately abnormal PVR waveform contour at the thigh and calflevel. Flat PVR waveforms at the ankle level. No Calf waveformaugmentation noted. MITCH is unobtainable due to pain and patient refusal tofinish exam. 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 Unable to obtain MITCH due to patient pain. When comparedto previous report current exam is insufficient to determine significant change. Recommendations: Any questions prior to finalization, please call thereading physician during normal business hours at the phone number besidetheir name. us Michelle Meadows MD CV VASCULAR ORDERABLES Final Res ult * Vas art duplex lwr graft scan bilat (08/19/2024 2:51 PM EDT) Anatomical Region Laterality Modality Vascular Bilateral Ultrasound 08/19/2024 2:44 PM EDT Narrative 08/20/2024 9:55 AM EDT Previous: 12/2023 Right MARBLE MASON to BK Popliteal synthetic bypass graft. Previous lower extremity bypass graft duplex exam performed: 07/20/2024 Results show Right lower extremity bypass graft occlsion. Left lower extremity SFA occlusion. Right: Entirety of bypass graft has no color flow or spectral Doppler signals. Mixed echogenic mass surrounding entire length of Bypass Graft and especially at the knee where large, mixed echonigc mass noted without colorflow. Left: Plaque and spectral waveforms with diastolic flow reversal noted in the common femoral and deep femoral artery without significant color flow disturbance. Mid superficial femoral vessel segments without color flow or spectral Doppler signals. Plaque with monophasic distal superficial femoral and popliteal artery spectral waveforms. Conclusions: RIGHT: Lower extremity bypass graft occlusion.LEFT: Superficial femoral artery occlusion.When compared to previous report no significant changes were noted. Recommendations: Any questions prior to finalization, please call the reading physician during normal business hours at the phone number beside their name. Procedure Note Sabrina Perez MD - 08/20/2024 Previous: 12/2023 Right MARBLE MASON to BK Popliteal synthetic bypass graft.Previous lower extremity bypass graft duplex exam performed: 07/20/2024Results show Right lower extremity bypass graft occlsion. Left lowerextremity SFA occlusion. Right: Entirety of bypass graft has no color flow or spectral Dopplersignals. Mixed echogenic mass surrounding entire length of Bypass Graftand especially at the knee where large, mixed echonigc mass noted withoutcolorflow. Left: Plaque and spectral waveforms with diastolic flow reversal noted inthe common femoral and deep femoral artery without significant color flowdisturbance. Mid superficial femoral vessel segments without color flow orspectral Doppler signals. Plaque with monophasic distal superficial femoral and popliteal arteryspectral waveforms. Conclusions: RIGHT: Lower extremity bypass graft occlusion.LEFT:Superficial femoral artery occlusion.When compared to previous report nosignificant changes were noted. Recommendations: Any questions prior to finalization, please call thereading physician during normal business hours at the phone number besidetheir name. us Vani Mccann MD CV VASCULAR ORDERABLES Final Result * (ABNORMAL) BLOOD CULTURE IDENTIFICATION PANEL (08/19/2024 10:04 AM EDT) Pseudomonas aeruginosa PCR Detected( A) Not Detected 08/20/2024 7:36 AM EDT [facility] Blood Venous blood / Unknown Venipuncture / Unknown 08/19/2024 10:04 AM EDT 08/19/2024 10:59 AM EDT us Arnie Smith MD MICROBIOLOGY - GENERAL ORD ERABLES Final Result [facility] [address] [place] [address], * (ABNORMAL) Erythrocyte Sedimentation Rate (ESR) (08/19/2024 8:56 AM EDT) Pathologist [facility] ESR, Erythrocyte Sedimentation Rate 54(H) 0 - 30 mm/h 08/19/2024 10:37 AM EDT [facility] Blood Venous blood / Unknown Venipuncture / Unknown 08/19/2024 8:56 AM EDT 08/19/2024 8:57 AM EDT Michelle Meadows MD LAB BLOOD ORDERABLES Final Resul t [facility] [address] [place] [address], * LDH (08/19/2024 8:56 AM EDT) Pathologist [facility] LDH 154 100 - 235 U/L 08/19/2024 9:44 AM EDT [facility] Blood Venous blood / Unknown Venipuncture / Unknown 08/19/2024 8:56 AM EDT 08/19/2024 8:56 AM EDT Vani Mccann MD LAB BLOOD ORDERABLES Final R esult [facility] [address] [place] [address], * Reticulocytes (08/19/2024 8:56 AM EDT) Pathologist [facility] Reticulocyte Count 1.2 0.4 - 2.2 % 08/19/2024 9:23 AM EDT [facility] Blood Venous blood / Unknown Venipuncture / Unknown 08/19/2024 8:56 AM EDT 08/19/2024 8:57 AM EDT Vani Mccann MD LAB BLOOD ORDERABLES Final R esult [facility] [address] [place] [address], * (ABNORMAL) C-reactive protein (08/19/2024 8:56 AM EDT) C REACTIVE PROTEIN 12.7(H) <=0.7 mg/dL 08/19/2024 9:44 AM EDT [facility] Blood Venous blood / Unknown Venipuncture / Unknown 08/19/2024 8:56 AM EDT 08/19/2024 8:56 AM EDT Michelle Meadows MD LAB BLOOD ORDERABLES Final Resul t Performing Organization Address City/[facility]/ZIP Co de Phone Number [facility] [address] [place] [address], * (ABNORMAL) Haptoglobin (08/19/2024 8:56 AM EDT) HAPTOGLOBIN 236(H) 32 - 228 mg/dL 08/19/2024 9:44 AM EDT [facility] Blood Venous blood / Unknown Venipuncture / Unknown 08/19/2024 8:56 AM EDT 08/19/2024 8:56 AM EDT Vani Mccann MD LAB BLOOD ORDERABLES Final R esult [facility] [address] [place] [address], * Ferritin (08/19/2024 8:56 AM EDT) FERRITIN 227 11 - 307 ng/mL 08/19/2024 9:55 AM EDT [facility] Blood Venous blood / Unknown Venipuncture / Unknown 08/19/2024 8:56 AM EDT 08/19/2024 8:56 AM EDT us Vani Mccann MD LAB BLOOD ORDERABLES Final R esult [facility] [address] [place] [address], [place] [phone] * CT angiogram abdominal aorta with runoff (08/18/2024 1:45 PM EDT) us Scanning Provider External IMG CT ORDERABLES Fin al Result from Last 3 Months Insurance MEDICARE [facility] Advance Directives Documents on File Type Date Recorded Patient Spd Tech Expl anation Living Will 11/05/2023 11:42 AM * DNRCCA DNI (Latest Code Status on File) Date Activated Date Inactivated Comments 09/05/2024 12:36 PM 09/07/2024 7:40 PM * Full Code Date Activated Date Inactivated Comments 08/22/2024 11:54 AM 09/05/2024 12:36 PM * Full Code Date Activated Date Inactivated Comments 11/19/2023 7:37 AM 11/19/2023 2:11 PM Healthcare Agents on File Name Relationship Healthcare Agent Relationship Communication Joanna Steinberg Daughter First Charlie chahal Health Care Agent [email or web address] Care Teams Human Resource Statistician Relationship Specialty Start Date End Date Shirlene Vergara MD [address] [place] [address] PCP - General Family Medicine 04/10/22
--- OUTSIDE RECORDS SUMMARY | 2024-10-25 14:02 | XMS_ITS | Encounter Summary ---
Author Organization [facility] tem Address [facility] [place]-[id number] [address] [place] [address] Care Team Providers Care Outreach Representative Name Role Phone Shirlene Vergara MD Primary Care Provider [phone] Encounter Details Date Type Department Care Team (Late st Contact Info) Description 01/02/2024 Orders Only [facility] - GEN 2 ICU [address] [place] [address] Shanique Conway, RN Social History Tobacco Use Types Packs/Day Years Used Date Smoking Tobacco: Former Cigarettes Q uit: 12/30/1993 Smokeless Tobacco: Never Comments:QUIT IN 1989 Alcohol Use Standard Drinks/Week Comments Yes 1 (1 standard drink = 0.6 oz pur e alcohol) monthly [facility] Utilities Answer Date Recorded In the past 12 months has [email or web address], gas, oil, or water [employer] threatened to shut off services in your [...] Description 11/03/2024 10:40 AM EDT Office Visit [facility] [address] [place] [address] Delicia Rivera, GRINDING AND POLISHING LABORER-BATH ATTENDANT [address] [place] [address] 01/25/2025 11:00 AM EST Office Visit [facility] [place] [address] [place] [address] Deuce Kirkland MD [address], [address] [address] documented as of this encounter Goals Goal [...] documented as of this encounter Care Teams Outreach Representative Relationship Specialty Start Date End Date Shirlene Vergara MD [address] [place] [address] PCP - General Family Medicine 04/10/22 documented as of this encounter
== END 2024-10-25 13:58 | disposition home or self-care (01) ==
LOC: CARD 13:58
PROVIDERS: PCP Family Medicine; Visit Provider Nurse Practitioner Family
DX: I51.89 Other ill-defined heart diseases (principal); I34.0 Nonrheumatic mitral (valve) insufficiency
CPT/HCPCS: 93306